=== PATIENT | female | born 1940 | race Caucasian/White ===

== ENCOUNTER → 2017-10-15 11:08 | Outpatient (CLI) | payer MEDICARE, OTHER, SELFPAY ==
--- NOTE | 2017-10-15 11:15 | RAD_ITS ---
STUDY: X-RAY - PELVIS AND LEFT HIP REASON FOR EXAM: Female, 77 years old. Hip pain. No history of trauma. TECHNIQUE: Radiological exam, hip, unilateral, with pelvis when performed; 2 or 3 views. COMPARISON: None. FINDINGS: There is a non-specific bowel gas pattern. A battery pack from a stimulator device is seen overlying the right iliac bone. The electrode is seen overlying the left sacral wing. There is narrowing with cortical sclerosis and osteophyte formation of the sacroiliac joint consistent with degenerative osteoarthritic changes. Normal bilateral superior and inferior pubic rami. There are degenerative changes of the pubic symphysis with articular narrowing and sclerosis. Normal bilateral ischial tuberosities. Normal visualized femoral head. Normal acetabulum. There is mild articular joint space narrowing of the hip. Status post right total hip replacement. IMPRESSION: Status post right total hip replacement. Degenerative changes of the left hip joint. Electronically Signed: Edward Jha MD at 15:54 EST Tel [phone], Service support , STUDY: X-RAY - PELVIS REASON FOR EXAM: Female, 77 years old. Hip pain. TECHNIQUE: One view of the pelvis was obtained. COMPARISON: None. FINDINGS: There is a non-specific bowel gas pattern. A stimulator device is seen overlying the right iliac bone. The electrode is overlying the left sacral wing. There is narrowing with cortical sclerosis and osteophyte formation of the sacroiliac joint consistent with degenerative osteoarthritic changes. Normal visualized bilateral superior and inferior pubic rami. Normal pubic symphysis. Normal ischial tuberosities. The patient is status post right total hip replacement. Normal visualized left femoral head. Normal left acetabulum. There is mild articular joint space narrowing of the left hip. 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 Electronically Signed: Edward Jha MD at 15:55 EST Tel [phone], Service support ,
--- NOTE | 2017-10-15 11:15 | RAD_ITS ---
STUDY: X-RAY - LEFT FEMUR REASON FOR STUDY: Female, 77 years old. Pain. No history of trauma. TECHNIQUE: Radiological exam, femur, minimum 2 views COMPARISON: None. FINDINGS: Normal visualized femur. Normal visualized soft tissue structure. There are atherosclerotic vascular calcifications. RAD/Femur Min 2 Views IMPRESSION: Normal x-ray examination of the femur. Electronically Signed: Edward Jha MD at 15:48 EST Tel [phone], Service support ,
== END ==
PROVIDERS: Family Provider Internal Medicine; PCP Internal Medicine; Visit Provider Internal Medicine
DX: M79.652 Pain in left thigh (principal); M25.552 Pain in left hip
CPT/HCPCS: 73502; 73552

== ENCOUNTER 2017-11-16 10:30 | Outpatient (RCR) | payer MEDICARE, OTHER, SELFPAY ==
--- NOTE | 2017-11-12 12:34 | HP.PTEVAL_ITS ---
Patient's Visit Information AGUSTIN GARCIA is a 77 year old F referred to Physical Therapy by Mirella PARKS with a diagnosis of L hip pain.. Date of Evaluation: 11/12/17 Physical Therapist: Chester Christine DPT, OC - Visit Plan Frequency: 3x /Week Duration: 4 Weeks Plan: 3x/week for 3-4 weeks... 1. Moist heat L quad/ITB. 2. STM/rollout to same. 3. Stretch ITB and quad on L. 4. PROM L hip and long leg traction. 5. Strength L hip NWB adn progress to HEP. - Subjective Subjective: L quad pain for 3 weeks. Injected which helped tremendously for a week. Got another injection adn sent for PT. Insidious onset for no apparent reason. Hurts with activity /walking. Sitting is comfortable. Used to walk 3 miles in an hour but has not been able to do that lately. Sleep is OK. Basic activites are OK, they just hurt and that is frustrating. Not employed. - Pain L quad Pain Intensity (Out of 10): 0 Pain Intensity Range: 0, 6 - Objective Antalgic L gait avoiding L hip extension at end stance. but I with gait and transfers. L quad tender to touch in ITB, GT and lateral andterior quad max tender. + jeffry test L, tight ITB L, hurts to stretch quad L. strength is 4-/ 5 B knees and ankles without pain, L quad mild tenderness with testing. Hip strength is 4- on R and 4- on L but painful with abduction and flexion. L hip ROM simliar to that of R, 45 ext rotation and 10 IR, pain with IR and + L hip scour. - Goals Goal 1:: Walk without antalgia and steps with L. Goal Time Frame: 4-6 Weeks Goal 2:: Pt feel 75% better and pain no greater than 1/10 Goal Time Frame: 4-6 Weeks Goal 3:: I approp HEp to minimize future problems. Goal Time Frame: 4-6 Weeks - Rehabilitation Potential Physical Therapy Diagnosis: L hip pain OA vs soft tissue quad/ITB Rehabilitation Potential: Fair - Anticipated Interventions Patient/Client Instruction: Educate patient on: Condition, Plan of Care For the Purpose of:: To decrease pain, To increase ROM, To improve nutrient delivery to tissue, To improve ability of physical actions for home/community/ work/leisure Therapeutic Exercise to Include: Strength training, Flexibilty training, Passive ROM, Active ROM For the Purpose of:: To decrease pain, To increase ROM Manual Therapy Techniques to Include: Mobilization, Soft tissue mobilization For the Purpose of:: To decrease pain, To increase ROM, To improve nutrient delivery to tissue Thermo therapy (hot pack): Yes For the Purpose of:: To improve nutrient delivery to tissue Thank you for the opportunity to evaluate your patient. For Medicare and Medicare HMO plans, please review the plan of care and approve it. It will need to be FAXED BACK to us at [phone] for Medicare purposes. Please let me know if there are questions or concerns regarding this plan of care. Physician Signature: Date:
--- NOTE | 2017-11-16 10:40 | HP.PTDCSUM ---
HP - PT D/C Summary It has been my pleasure to treat AGUSTIN GARCIA under orders from DR.KFEARO Chuy for the diagnosis of L hip pain. for a total of 2 visit(s). Discharge Date: 11/16/17 Please see the following information for a summary of their discharge status. - Subjective Subjective: I am back to normal. No pain over weekend. Done stretches each day and feels good. Activity is normal. Shovelled snow and no pain. Ready to be done with PT. Started Soring cleaning. - Pain L quad Pain Intensity (Out of 10): 0 - Overall Improvement % Improvement: 100 - Objective Objective/Function: Steps reciprocal without hesitation. Gait without antalgia today. Full aROM and symmetrical B hips and knees, no tenderness in L quad or ITB today. - Goals Goal 1:: Walk without antalgia and steps with L. Goal Progress: Goal Met Goal 2:: Pt feel 75% better and pain no greater than 1/10 Goal Progress: Goal Met Goal 3:: I approp HEp to minimize future problems. Goal Progress: Goal Met - Plan Plan: D/C, pt request adn appropriate. - D/C Information Discharge Comments: Pt doing well and no longer in need of PT. Will continue stretch and contact doctor if pain returns. If there are questions or concerns regarding this patient's physical therapy, please feel free to call me at [phone]. Thank you for the referral of this patient. Sincerely, Chester Christine, DPT, OC
== END 2017-11-16 19:00 | disposition home or self-care (01) ==
LOC: PT 10:30
PROVIDERS: Family Provider Internal Medicine; PCP Internal Medicine; Visit Provider Internal Medicine
DX: M25.552 Pain in left hip (principal); M70.72 Other bursitis of hip, left hip; M76.32 Iliotibial band syndrome, left leg
CPT/HCPCS: 97110; 97162; 97530

== ENCOUNTER → 2019-03-15 | Outpatient (CLI) | payer MEDICARE, OTHER, SELFPAY ==
--- NOTE | 2019-03-15 12:44 | VDLE_ITS ---
Reason For Study: pain RIGHT LEFT CFV is compressible, spontaneous, phasic, GSV is normal. competent and demonstrates normal CFV is compressible, spontaneous, phasic, augmentation. competent, and demonstrates normal Procedure augmentation. Exam performed in department. FV is compressible, spontaneous, phasic, The exam was diagnostic. competent and demonstrates normal A preliminary report was called and/or faxed augmentation. to Dr. Mccracken. POP V is compressible, spontaneous, phasic, competent and demonstrates normal augmentation. T/P Trunk is compressible. PTV is compressible. LT PerV is compressible. Interpretation Summary Deep veins of the left lower extremity are patent and compressible segmentally. There is no evidence of left lower extremity deep vein thrombosis. Valvular competence appears intact within the proximal deep venous system on the left . The left greater saphenous vein appears patent and compressible segmentally. Ordering Physician: Mirella Mccracken Performed By: Dilshad Russo RVT
== END | disposition home or self-care (01) ==
LOC: CVS 12:37
PROVIDERS: Family Provider Internal Medicine; PCP Internal Medicine; Referring Provider Internal Medicine; Visit Provider Internal Medicine
DX: M79.605 Pain in left leg (principal)
CPT/HCPCS: 93971

== ENCOUNTER → 2019-03-18 | Outpatient (CLI) | payer MEDICARE, OTHER, SELFPAY ==
--- NOTE | 2019-03-18 15:26 | US_ITS ---
STUDY: ULTRASOUND OF THE FEMALE PELVIS - COMPLETE REASON FOR EXAM: Female, 78 years old. Hysterectomy TECHNIQUE: Transabdominal ultrasound images were obtained of the pelvis TECHNICAL QUALITY: Adequate. COMPARISON: None. FINDINGS: The uterus has been removed. The right ovary has been removed. The left ovary has been removed. There is no fluid in the cul-de-sac. US/Pelvic (Non ) IMPRESSION: Status post hysterectomy and bilateral oophorectomy. No pelvic pathology identified. Electronically Signed: Avi Fisher, at 16:41 EDT Tel , Service support ,
== END | disposition home or self-care (01) ==
LOC: US 15:24
PROVIDERS: Family Provider Internal Medicine; PCP Internal Medicine; Referring Provider Internal Medicine; Visit Provider Internal Medicine
DX: M79.89 Other specified soft tissue disorders (principal)
CPT/HCPCS: 76856

== ENCOUNTER → 2019-05-05 | Outpatient (CLI) | payer MEDICARE, SELFPAY ==
[2019-05-05 12:48] LABS: Anion Gap 2 (5-15); BUN 15 mg/dL (7-18); Calcium,Total 9.9 mg/dL (8.5-10.1); Chloride 108 mmol/L (98-107); Creatinine, Serum 0.83 mg/dL (0.55-1.02); EST Glomerular Filtration Rate 70 mL/min (>60); Est Glom Filt Rate - Afr Amer 85 mL/min (>60); Glucose 93 mg/dL (74-106); Potassium 4.9 mmol/L (3.5-5.1); Sodium Level 143 mmol/L (136-145)
--- NOTE | 2019-05-05 14:16 | CT_ITS ---
STUDY: CT ABDOMEN AND PELVIS WITH CONTRAST REASON FOR EXAM: Female, 79 years old. Left-sided pain with lymphedema RADIATION DOSAGE (If Supplied By Facility): CTDIvol = ( 17.83 ) mGy, DLP = ( 2077.66 ) mGycm TECHNIQUE: Transaxial images were obtained from the dome of the diaphragm to the symphysis pubis with oral contrast. 100 IV/Oral Isovue 300 was administered. Sagittal and coronal images were reconstructed. Individualized dose optimization techniques were used for this CT. COMPARISON: None. FINDINGS: The visualized lung bases are unremarkable. Calcified mitral annulus. Median sternotomy wires. Small hiatal hernia. Subcentimeter right hepatic lobe hypodensity may be a small cyst. There are surgical clips in the gallbladder fossa consistent with a prior cholecystectomy. Normal spleen. Normal pancreas. Normal bilateral adrenal glands. Moderate left and mild right hydroureteronephrosis without evidence of underlying obstructing stone. Normal visualized stomach. Normal small intestine. There are multiple colonic diverticula consistent with diverticulosis. There is non-visualization of the appendix. Normal abdominal aorta. Normal inferior vena cava. Normal retroperitoneum. Normal urinary bladder. Postoperative changes of the anterior abdominal wall. Right hip arthroplasty. Sacral stimulator. CT/Abdomen/Pelvis WITH Contrast IMPRESSION: Moderate left and mild right hydroureteronephrosis without evidence of underlying obstructing stone. No evidence of acute intestinal pathology. Electronically Signed: Zoran Reinoso MD at 17:05 EDT Tel , Service support ,
== END | disposition home or self-care (01) ==
PROVIDERS: Family Provider Internal Medicine; PCP Internal Medicine; Referring Provider Internal Medicine; Visit Provider Internal Medicine
DX: I89.0 Lymphedema, not elsewhere classified (principal); Z51.81 Encounter for therapeutic drug level monitoring
CPT/HCPCS: 74177; 80048; Q9967

== ENCOUNTER 2019-05-27 18:10 | Observation (INO) | payer MEDICARE, SELFPAY ==
[2019-05-27] VITALS (20 sets, daily range): BP systolic 122–194; BP diastolic 65–155; PULSE 66–84; RESP 16–18; TEMP 36.3–36.6; O2SAT 92–100; BMI 30.6
[2019-05-27] MEDS: Lactated Ringers 1,000 ML 75 ML IV ×2 (14:36→16:57)
[2019-05-27] MEDS: Cefazolin 2 GM in 0.9% Normal Saline 100 ML IV (15:18)
--- NOTE | 2019-05-27 15:30 | RAD_ITS ---
STUDY: X-RAY - PELVIS REASON FOR EXAM: Female, 79 years old. TECHNIQUE: One view of the pelvis was obtained. COMPARISON: None. FINDINGS: This single intraoperative view demonstrates a stimulator electrode projecting over the right pelvis. RAD/Pelvis 1 or 2 Views IMPRESSION: Single intraoperative view demonstrates a stimulator electrode projecting over the right pelvis. Electronically Signed: Antoni Gaviria MD at 16:34 EDT , Service support ,
--- NOTE | 2019-05-27 16:14 | DCINST_ITS ---
Discharge Diet: Light diet - advance as tolerated Discharge Activity: Return to Normal Activity Call your doctor if your incision/area has: Continuous Slow Oozing, Sudden Increased Bleeding, Increased Pain/ Swelling, Increased Redness, Foul Smelling Discharge Call your doctor if you observe: Fever of 101 or Higher Suture Line Care: Avoid Pulling/Pushing, Avoid Pinching/Bending Allergies/Adverse Reactions: Allergies No Known Allergies Allergy (Verified 05/27/19 14:15) Medications to take at Discharge Aspirin E.C. [Ecotrin] 81 mg PO DAILY@0800 07/25/14 Cholecalciferol (VIT D3) [Vitamin D3] 1,000 unit PO DAILY 07/25/14 rosuvastatin 20 mg tablet 10 mg PO QDAY 11/23/17 Melatonin/Pyridoxine HCl (B6) [Melatonin 3 mg Tablet] 1 ea PO PRN PRN 05/13/19 Vit C/E/Zn/Coppr/Lutein/Zeaxan [Preservision Areds 2 Softgel] 1 ea PO DAILY 05/13/19 Primary Care Physician: Mirella Mccracken DO [Primary Care Provider] - Test Results: Test results from this visit will be discussed in further detail at your follow- up appointment, if applicable. Please Follow Up With: Uriel Francois MD When: in 2 weeks, please call to make an appointment.
--- NOTE | 2019-05-27 16:15 | OP.PCM_ITS ---
Report of Operation Date of Procedure: 05/27/19 Pre-Operative Diagnosis: Left hydronephrosis seen on CT scan, InterStim device nonfunctional due to battery life, overactive bladder urge incontinence. Post-Operative Diagnosis: The same Surgery/Procedure Performed:: 1., Cystoscopy, left retrograde pyelogram, interpretation fluoroscopic images. #2. InterStim stage II change of generator and battery. Description of Surgical Findings:: 79-year-old female who had a recent CAT scan to demonstrate some mild left hydronephrosis we will do a retrograde pyelogram to evaluate this she did have a prior operative procedure on her kidney she cannot remember what this could just be result from this procedure. She also has overactive bladder and urge incontinence which now is worsened and she did have a InterStim device placed 9 years ago and working to replace the generator battery. 79-year-old female taken back to the operating room at the smooth induction of MAC local she was placed in dorsolithotomy position went into the bladder with a 21 [place] rigid cystourethroscope cannulated the left ureteral orifice with a Glidewire and a Pollack catheter performed a retrograde pyelogram and the pyelograms consistent with normal anatomy normal smooth contrast with some mild dilation of the renal pelvis but no obstruction no tumors or stones seen in the retrograde pyelogram. Patient was then repositioned facedown on the table we found the old incision site for the InterStim in the old site for the generator, we infiltrated the skin with lidocaine the area was prepped and draped in usual sterile fashion made an incision above the generator dissected sharply down to the generator making sure not to injure the lead found the generator and the pseudo-sac around the opened it up pulled out the generator use the bolts to undo the screw and then took the generator off the old lead we then tested the lead 012 and 3 leads were tested we had toe and abdiel on all leads checked. We then placed a new generator onto the lead advanced all the way and tighten out with a bolt and then we checked for impedances impedances were low we then placed the generator back into the pocket closed the pocket in 2 layers with sutures dressings and b andages were placed patient taken back to PACU in good condition and we completed change of stage II generator and InterStim implant. Type of Anesthesia:: Local MAC - Admit VTE Documentation VTE Present on Admission: No VTE Mechan Device Prophylaxis: SCD's
--- NOTE | 2019-05-27 16:40 | RAD_ITS ---
STUDY: X-RAY - RIGHT SHOULDER REASON FOR EXAM: Female, 79 years old. Right shoulder pain TECHNIQUE: 2 view(s) of the shoulder. COMPARISON: None. FINDINGS: Normal glenohumeral articulation. Normal acromioclavicular joint. Normal acromion. Normal humeral head and visualized proximal humerus. The soft tissue structures are unremarkable. Normal visualized pulmonary apex. RAD/Shoulder min 2 Views IMPRESSION: Normal x-ray examination of the shoulder. Electronically Signed: Antoni Gaviria MD at 17:22 EDT , Service support ,
--- NOTE | 2019-05-27 16:43 | EKG12_ITS ---
Test Reason : CP Blood Pressure : / mmHG Vent. Rate : 067 BPM Atrial Rate : 067 BPM P-R Int : 172 ms QRS Dur : 076 ms QT Int : 434 ms P-R-T Axes : 063 031 057 degrees QTc Int : 458 ms Normal sinus rhythm Normal ECG Confirmed by BRENT GE, ANJEL ([id number]), makeup editor MANNY VERDE ([id number]) on 06/01/2019 2:41:48 PM Referred By: Uriel Francois Confirmed By:ANJEL KENNEDY MD
--- NOTE | 2019-05-27 16:46 | RAD_ITS ---
STUDY: X-RAY CHEST REASON FOR EXAM: Female, 79 years old. Right shoulder and rib pain status post surgery TECHNIQUE: Single AP portable view of the chest. COMPARISON: Prior study of 03/26/2017 FINDINGS: There are wispy fibrotic and/or atelectatic changes of the lung bases. There is no demonstrated pleural abnormality. The heart size is within normal limits. Status post sternotomy changes are noted. Normal mediastinum and karthik. Normal visualized pulmonary arteries. There are calcified plaques of the aortic arch. Normal visualized thoracic spine. Normal visualized ribs, clavicles, and shoulders. There is no demonstrated abnormality of the visualized soft tissue structures of the upper abdomen. RAD/Chest 1 View (Portable) IMPRESSION: Wispy fibrotic and/or atelectatic changes of the lung bases, new in the interval. Calcified plaques of the aortic arch. Status post sternotomy. Electronically Signed: Antoni Gaviria MD at 17:24 EDT , Service support ,
[2019-05-27] MEDS: Ondansetron 4 MG/2 ML Vial IV (21:31)
[2019-05-27] MEDS: 0.9% NaCl Peripheral Flush Adult/Peds IV (21:33)
[2019-05-27] MEDS: Atorvastatin Calcium 20 MG Tablet PO (23:15)
[2019-05-28 03:03] VITALS: BP 150/68; PULSE 69; RESP 18; TEMP 36.6; O2SAT 99
[2019-05-28] MEDS: Lactated Ringers 1,000 ML 30 ML IV (06:49)
[2019-05-28 07:48] VITALS: BP 159/61; PULSE 70; RESP 18; TEMP 37; O2SAT 98
[2019-05-28] MEDS: Aspirin E.C. 81 MG Tablet PO (07:52)
[2019-05-28] MEDS: Multivitamins,Ther W-Minerals Tablet 1 TABLET PO (07:55)
--- NOTE | 2019-05-28 09:48 | PCM.PN.BLA ---
Progress Note Doing well this morning no more nausea or vomiting or pain or discomfort, we were able to turn on the InterStim device. Discharge later home today follow-up in the office few weeks.
== END 2019-05-28 10:06 | disposition home or self-care (01) ==
LOC: MS3 18:16
PROVIDERS: Admitting Provider Urology; Family Provider Internal Medicine; PCP Internal Medicine; Referring Provider Urology; Visit Provider Urology
PROC: (CPT 52005; principal; 2019-05-27 15:10)
PROC: (CPT 52005; 2019-05-27 15:10)
DX: Z45.42 Encounter for adjustment and management of neurostimulator (principal); N32.81 Overactive bladder; N13.1 Hydronephrosis with ureteral stricture, not elsewhere classified; E78.00 Pure hypercholesterolemia, unspecified; I25.2 Old myocardial infarction; N39.46 Mixed incontinence; I48.91 Unspecified atrial fibrillation; Z95.1 Presence of aortocoronary bypass graft; G47.30 Sleep apnea, unspecified; Z79.899 Other long term (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 therapy; Z79.82 Long term (current) use of aspirin; I25.9 Chronic ischemic heart disease, unspecified; M19.90 Unspecified osteoarthritis, unspecified site
CPT/HCPCS: 52005; 64590; 71045; 72170; 73030; 76000; 93005; 96374; 99218; J7120; A4216; C1767; G0378; G0379; J2405

== ENCOUNTER → 2019-07-18 05:00 | Outpatient (REF) | payer OTHER, SELFPAY ==
[2019-05-27 18:37] VITALS: BMI 30.6
[2019-07-18 08:07] LABS: Hematocrit 40.3 % (37-47); Hemoglobin 12.7 g/dL (12.0-15.0); Mean Corp Hgb Conc 31.5 g/dL (32-36); Mean Corpuscular Hgb 29.8 pg (27.0-32.0); Mean Corpuscular Volume 94.6 fL (81-99); Mean Platelet Vol. 10.3 fl (6.2-12.0); Platelet Count 187 K/mm3 (150-450); RBC Distribution Width CV 13.7 % (11.6-14.6); RBC Distribution Width SD 47.7 fl (35.1-43.9); Red Blood Count 4.26 M/mm3 (4.2-5.4); White Blood Count 4.7 K/mm3 (4.4-11.0)
[2019-07-18 08:24] LABS: Anion Gap 6 (5-15); BUN 12 mg/dL (7-18); BUN/Creat Ratio 18.7 RATIO (10-20); Calcium,Total 9.2 mg/dL (8.5-10.1); Chloride 106 mmol/L (98-107); Creatinine, Serum 0.64 mg/dL (0.55-1.02); EST Glomerular Filtration Rate 95 mL/min (>60); Est Glom Filt Rate - Afr Amer 114 mL/min (>60); Glucose 103 mg/dL (74-106); Potassium 4.5 mmol/L (3.5-5.1); Sodium Level 141 mmol/L (136-145)
== END ==
LOC: OLS.WHLCAR 05:00
PROVIDERS: Visit Provider Family Medicine
DX: I10 Essential (primary) hypertension (principal); S82.851D Displaced trimalleolar fracture of right lower leg, subsequent encounter for closed fracture with routine healing; S52.501D Unspecified fracture of the lower end of right radius, subsequent encounter for closed fracture with routine healing
CPT/HCPCS: 36415; 80048; 85027

== ENCOUNTER → 2019-08-15 05:00 | Outpatient (REF) | payer OTHER, SELFPAY ==
[2019-05-27 18:37] VITALS: BMI 30.6
[2019-08-15 08:12] LABS: Hematocrit 37.5 % (37-47); Hemoglobin 12.3 g/dL (12.0-15.0); Mean Corp Hgb Conc 32.8 g/dL (32-36); Mean Corpuscular Hgb 29.9 pg (27.0-32.0); Mean Platelet Vol. 10.3 fl (6.2-12.0); Platelet Count 173 K/mm3 (150-450); RBC Distribution Width CV 13.2 % (11.6-14.6); RBC Distribution Width SD 44.4 fl (35.1-43.9); Red Blood Count 4.12 M/mm3 (4.2-5.4); White Blood Count 4.7 K/mm3 (4.4-11.0)
[2019-08-15 08:29] LABS: Anion Gap 7 (5-15); BUN 8 mg/dL (7-18); BUN/Creat Ratio 11.4 RATIO (10-20); Calcium,Total 8.9 mg/dL (8.5-10.1); Chloride 110 mmol/L (98-107); EST Glomerular Filtration Rate 85 mL/min (>60); Est Glom Filt Rate - Afr Amer 103 mL/min (>60); Glucose 80 mg/dL (74-106); Potassium 3.9 mmol/L (3.5-5.1); Sodium Level 143 mmol/L (136-145)
== END ==
LOC: OLS.WHLCAR 05:00
PROVIDERS: Visit Provider Family Medicine
DX: I10 Essential (primary) hypertension (principal); S82.851D Displaced trimalleolar fracture of right lower leg, subsequent encounter for closed fracture with routine healing; S52.501D Unspecified fracture of the lower end of right radius, subsequent encounter for closed fracture with routine healing
CPT/HCPCS: 36415; 80048; 85027

== ENCOUNTER → 2019-11-03 14:15 | Outpatient (CLI) | payer MEDICARE, MEDICAID, SELFPAY ==
[2019-05-27 18:37] VITALS: BMI 30.6
--- NOTE | 2019-11-03 14:21 | CT_ITS ---
STUDY: CT RIGHT WRIST REASON FOR EXAM: Right wrist pain status post surgical repair. TECHNIQUE: Transaxial CT imaging of the wrist was performed. Sagittal and coronal images were reconstructed. Individualized dose optimization techniques were used for this CT. COMPARISON: None. FINDINGS: There is an intact orthopedic plate and screws transfixing a distal radial fracture with osseous bridging and mild foreshortening (coronal reconstructions 24-27; sagittal reconstructions 31-40). There is a chronic avulsion fracture of the ulnar styloid process without osseous union (coronal reconstructions 23, 24). There is joint space narrowing of the radioscaphoid articulation (coronal reconstructions 24, 25). The carpal bones appear intact. There is joint space narrowing of the first carpometacarpal articulation (coronal reconstructions 21, 22). Normal metacarpals. The soft tissue structures are unremarkable. CT/Extremity Upper without Contra IMPRESSION: Healed distal radial fracture with orthopedic hardware. Arthrosis of the radioscaphoid articulation. Arthrosis of the first carpometacarpal articulation. Chronic avulsion fracture of the ulnar styloid process without osseous union. Electronically Signed: Eugene Rodriguez MD at 15:06 EST Tel , Service support ,
== END ==
PROVIDERS: PCP Internal Medicine
DX: S52.571A Other intraarticular fracture of lower end of right radius, initial encounter for closed fracture (principal); X58.XXXA Exposure to other specified factors, initial encounter; Y93.9 Activity, unspecified; Y92.9 Unspecified place or not applicable; Y99.9 Unspecified external cause status
CPT/HCPCS: 73200

== ENCOUNTER → 2019-11-14 05:00 | Outpatient (REF) | payer MEDICARE, MEDICAID, SELFPAY ==
[2019-05-27 18:37] VITALS: BMI 30.6
[2019-11-14 08:29] LABS: Absolute Neutrophil Count 2.5 X10^3/uL (2.0-7.7); Basophil# 0.03 X10^3/uL; Basophil% 0.7 % (0-1); Eosinophil# 0.14 X10^3/uL; Eosinophils% 3.1 % (0-5); Hematocrit 38.3 % (37-47); Hemoglobin 12.8 g/dL (12.0-15.0); Lymphocyte % 30.6 % (19-41); Mean Corp Hgb Conc 33.4 g/dL (32-36); Mean Corpuscular Hgb 30.4 pg (27.0-32.0); Mean Platelet Vol. 10.4 fl (6.2-12.0); Monocyte# 0.49 X10^3/uL; Monocyte% 10.7 % (0-10); NRBC Flagged by Analyzer 0 % (0-5); Neutrophil # 2.51 X10^3/uL (2.7-7.7); Neutrophil % 54.7 % (47-70); Platelet Count 174 K/mm3 (150-450); Red Blood Count 4.21 M/mm3 (4.2-5.4); White Blood Count 4.6 K/mm3 (4.4-11.0)
[2019-11-14 08:38] LABS: Anion Gap 7 (5-15); BUN 14 mg/dL (7-18); BUN/Creat Ratio 21.2 RATIO (10-20); Calcium,Total 9.1 mg/dL (8.5-10.1); Chloride 109 mmol/L (98-107); Creatinine, Serum 0.66 mg/dL (0.55-1.02); EST Glomerular Filtration Rate 92 mL/min (>60); Est Glom Filt Rate - Afr Amer 111 mL/min (>60); Glucose 78 mg/dL (74-106); Potassium 3.8 mmol/L (3.5-5.1); Sodium Level 142 mmol/L (136-145)
== END ==
LOC: OLS.WHLCAR 05:00
PROVIDERS: PCP Internal Medicine; Visit Provider Family Medicine
DX: I25.10 Atherosclerotic heart disease of native coronary artery without angina pectoris (principal); S82.851D Displaced trimalleolar fracture of right lower leg, subsequent encounter for closed fracture with routine healing; S52.501D Unspecified fracture of the lower end of right radius, subsequent encounter for closed fracture with routine healing
CPT/HCPCS: 36415; 80048; 85025

== ENCOUNTER → 2019-11-23 05:00 | Outpatient (REF) | payer MEDICARE, MEDICAID, SELFPAY ==
[2019-05-27 18:37] VITALS: BMI 30.6
[2019-11-23 07:46] LABS: Cholesterol 105 mg/dL (200); High Density Lipoprotein 53 mg/dL; Triglycerides 93 mg/dL; Very Low Density Lipoprotein 19 mg/dL (5-40)
== END ==
LOC: OLS.WHLCAR 05:00
PROVIDERS: PCP Internal Medicine; Visit Provider Family Medicine
DX: I25.10 Atherosclerotic heart disease of native coronary artery without angina pectoris (principal); S82.851D Displaced trimalleolar fracture of right lower leg, subsequent encounter for closed fracture with routine healing; S52.501D Unspecified fracture of the lower end of right radius, subsequent encounter for closed fracture with routine healing
CPT/HCPCS: 36415; 80061

== ENCOUNTER → 2020-02-13 05:00 | Outpatient (REF) | payer MEDICARE, MEDICAID, SELFPAY ==
[2019-05-27 18:37] VITALS: BMI 30.6
[2020-02-13 08:34] LABS: Basophil# 0.03 X10^3/uL; Basophil% 0.6 % (0-1); Eosinophil# 0.16 X10^3/uL; Eosinophils% 3.1 % (0-5); Hemoglobin 13.4 g/dL (12.0-15.0); Lymphocyte % 29.4 % (19-41); Mean Corp Hgb Conc 31.9 g/dL (32-36); Mean Corpuscular Hgb 30.3 pg (27.0-32.0); Mean Platelet Vol. 10.4 fl (6.2-12.0); Monocyte# 0.42 X10^3/uL; Monocyte% 8.2 % (0-10); NRBC Flagged by Analyzer 0 % (0-5); Neutrophil % 58.7 % (47-70); Platelet Count 201 K/mm3 (150-450); RBC Distribution Width CV 12.6 % (11.6-14.6); RBC Distribution Width SD 43.9 fl (35.1-43.9); Red Blood Count 4.42 M/mm3 (4.2-5.4); White Blood Count 5.1 K/mm3 (4.4-11.0)
[2020-02-13 08:54] LABS: Anion Gap 7 (5-15); BUN 8 mg/dL (7-18); BUN/Creat Ratio 10.7 RATIO (10-20); Calcium,Total 9.5 mg/dL (8.5-10.1); Chloride 108 mmol/L (98-107); Creatinine, Serum 0.75 mg/dL (0.55-1.02); EST Glomerular Filtration Rate 79 mL/min (>60); Est Glom Filt Rate - Afr Amer 95 mL/min (>60); Glucose 96 mg/dL (74-106); Potassium 4.1 mmol/L (3.5-5.1); Sodium Level 140 mmol/L (136-145)
== END ==
LOC: OLS.WHLCAR 05:00
PROVIDERS: PCP Internal Medicine; Visit Provider Family Medicine
DX: I25.10 Atherosclerotic heart disease of native coronary artery without angina pectoris (principal); S82.851D Displaced trimalleolar fracture of right lower leg, subsequent encounter for closed fracture with routine healing; S52.501D Unspecified fracture of the lower end of right radius, subsequent encounter for closed fracture with routine healing
CPT/HCPCS: 36415; 80048; 85025

== ENCOUNTER → 2020-05-22 04:00 | Outpatient (REF) | payer MEDICARE, MEDICAID, SELFPAY ==
[2019-05-27 18:37] VITALS: BMI 30.6
[2020-05-22 08:35] LABS: Absolute Lymphocyte Count 1.69 X10^3/uL (0.83-4.51); Absolute Neutrophil Count 2.7 X10^3/uL (2.0-7.7); Basophil# 0.03 X10^3/uL; Basophil% 0.6 % (0-1); Hematocrit 42.5 % (37-47); Hemoglobin 13.6 g/dL (12.0-15.0); Lymphocyte # 1.69 X10^3/ul (4.0); Lymphocyte % 33.7 % (19-41); Mean Corpuscular Hgb 31.3 pg (27.0-32.0); Mean Corpuscular Volume 97.7 fL (81-99); Mean Platelet Vol. 10.3 fl (6.2-12.0); Monocyte# 0.48 X10^3/uL; Monocyte% 9.6 % (0-10); NRBC Flagged by Analyzer 0 % (0-5); Neutrophil # 2.71 X10^3/uL (2.7-7.7); Neutrophil % 53.9 % (47-70); Platelet Count 188 K/mm3 (150-450); RBC Distribution Width CV 12.5 % (11.6-14.6); RBC Distribution Width SD 44.8 fl (35.1-43.9); Red Blood Count 4.35 M/mm3 (4.2-5.4)
[2020-05-22 09:30] LABS: Anion Gap 5 (5-15); BUN 12 mg/dL (7-18); Calcium,Total 9.3 mg/dL (8.5-10.1); Chloride 109 mmol/L (98-107); EST Glomerular Filtration Rate 73 mL/min (>60); Est Glom Filt Rate - Afr Amer 89 mL/min (>60); Glucose 90 mg/dL (74-106); Potassium 4.1 mmol/L (3.5-5.1); Sodium Level 141 mmol/L (136-145)
== END ==
LOC: OLS.WHLCAR 04:00
PROVIDERS: PCP Internal Medicine; Referring Provider Family Medicine; Visit Provider Family Medicine
DX: G30.9 Alzheimer's disease, unspecified (principal); F02.80 Dementia in other diseases classified elsewhere, unspecified severity, without behavioral disturbance, psychotic disturbance, mood disturbance, and anxiety; I10 Essential (primary) hypertension; I25.10 Atherosclerotic heart disease of native coronary artery without angina pectoris
CPT/HCPCS: 36415; 80048; 85025

== ENCOUNTER → 2020-11-12 05:00 | Outpatient (REF) | payer MEDICARE, MEDICAID, SELFPAY ==
[2019-05-27 18:37] VITALS: BMI 30.6
[2020-11-12 08:45] LABS: Absolute Neutrophil Count 2.6 X10^3/uL (2.0-7.7); Basophil# 0.03 X10^3/uL; Basophil% 0.6 % (0-1); Eosinophil# 0.07 X10^3/uL; Eosinophils% 1.5 % (0-5); Hematocrit 37.7 % (37-47); Hemoglobin 11.9 g/dL (12.0-15.0); Lymphocyte % 31.6 % (19-41); Mean Corp Hgb Conc 31.6 g/dL (32-36); Mean Corpuscular Hgb 30.4 pg (27.0-32.0); Mean Corpuscular Volume 96.4 fL (81-99); Monocyte# 0.54 X10^3/uL; Monocyte% 11.4 % (0-10); NRBC Flagged by Analyzer 0 % (0-5); Neutrophil % 54.7 % (47-70); Platelet Count 174 K/mm3 (150-450); RBC Distribution Width CV 12.6 % (11.6-14.6); RBC Distribution Width SD 45.1 fl (35.1-43.9); Red Blood Count 3.91 M/mm3 (4.2-5.4); White Blood Count 4.8 K/mm3 (4.4-11.0)
[2020-11-12 08:59] LABS: Anion Gap 3 (5-15); BUN 14 mg/dL (7-18); BUN/Creat Ratio 19.6 RATIO (10-20); Chloride 108 mmol/L (98-107); Creatinine, Serum 0.71 mg/dL (0.55-1.02); EST Glomerular Filtration Rate 84 mL/min (>60); Est Glom Filt Rate - Afr Amer 101 mL/min (>60); Glucose 85 mg/dL (74-106); Potassium 4.2 mmol/L (3.5-5.1); Sodium Level 140 mmol/L (136-145)
== END ==
LOC: OLS.WHLEAS 05:00
PROVIDERS: PCP Internal Medicine; Visit Provider Family Medicine
DX: I25.10 Atherosclerotic heart disease of native coronary artery without angina pectoris (principal); G30.9 Alzheimer's disease, unspecified; F02.80 Dementia in other diseases classified elsewhere, unspecified severity, without behavioral disturbance, psychotic disturbance, mood disturbance, and anxiety; I10 Essential (primary) hypertension
CPT/HCPCS: 36415; 80048; 85025

== ENCOUNTER → 2021-01-14 04:00 | Outpatient (REF) | payer MEDICARE, MEDICAID, SELFPAY ==
[2019-05-27 18:37] VITALS: BMI 30.6
[2021-01-14 07:48] LABS: Cholesterol 120 mg/dL (200); High Density Lipoprotein 60 mg/dL; Triglycerides 72 mg/dL; Very Low Density Lipoprotein 14 mg/dL (5-40)
== END ==
LOC: OLS.WHLEAS 04:00
PROVIDERS: PCP Internal Medicine; Referring Provider Family Medicine; Visit Provider Family Medicine
DX: I25.10 Atherosclerotic heart disease of native coronary artery without angina pectoris (principal); G30.9 Alzheimer's disease, unspecified; F02.80 Dementia in other diseases classified elsewhere, unspecified severity, without behavioral disturbance, psychotic disturbance, mood disturbance, and anxiety; I10 Essential (primary) hypertension
CPT/HCPCS: 36415; 80061

== ENCOUNTER → 2021-02-18 05:00 | Outpatient (REF) | payer MEDICARE, MEDICAID, SELFPAY ==
[2019-05-27 18:37] VITALS: BMI 30.6
[2021-02-18 07:10] LABS: Absolute Lymphocyte Count 1.17 X10^3/uL (0.83-4.51); Absolute Neutrophil Count 2.3 X10^3/uL (2.0-7.7); Basophil# 0.02 X10^3/uL; Basophil% 0.5 % (0-1); Eosinophil# 0.12 X10^3/uL; Eosinophils% 2.9 % (0-5); Hematocrit 38.7 % (37-47); Hemoglobin 12.6 g/dL (12.0-15.0); Lymphocyte # 1.17 X10^3/ul (0.83-4.51); Lymphocyte % 27.9 % (19-41); Mean Corp Hgb Conc 32.6 g/dL (32-36); Mean Corpuscular Hgb 30.8 pg (27.0-32.0); Mean Corpuscular Volume 94.6 fL (81-99); Mean Platelet Vol. 10.1 fl (6.2-12.0); Monocyte# 0.62 X10^3/uL; Monocyte% 14.8 % (0-10); NRBC Flagged by Analyzer 0 % (0-5); Neutrophil # 2.26 X10^3/uL (2.7-7.7); Neutrophil % 53.7 % (47-70); Platelet Count 174 K/mm3 (150-450); RBC Distribution Width CV 12.4 % (11.6-14.6); RBC Distribution Width SD 43.1 fl (35.1-43.9); Red Blood Count 4.09 M/mm3 (4.2-5.4); White Blood Count 4.2 K/mm3 (4.4-11.0)
[2021-02-18 07:22] LABS: Anion Gap 7 (5-15); BUN 15 mg/dL (7-18); BUN/Creat Ratio 19.6 RATIO (10-20); Chloride 105 mmol/L (98-107); Creatinine, Serum 0.76 mg/dL (0.55-1.02); EST Glomerular Filtration Rate 77 mL/min (>60); Est Glom Filt Rate - Afr Amer 93 mL/min (>60); Glucose 90 mg/dL (74-106); Potassium 4.2 mmol/L (3.5-5.1); Sodium Level 140 mmol/L (136-145)
== END ==
LOC: OLS.WHLEAS 05:00
PROVIDERS: PCP Internal Medicine; Visit Provider Family Medicine
DX: I25.10 Atherosclerotic heart disease of native coronary artery without angina pectoris (principal); G30.9 Alzheimer's disease, unspecified; F02.80 Dementia in other diseases classified elsewhere, unspecified severity, without behavioral disturbance, psychotic disturbance, mood disturbance, and anxiety; I10 Essential (primary) hypertension
CPT/HCPCS: 36415; 80048; 85025

== ENCOUNTER → 2021-05-21 05:00 | Outpatient (REF) | payer MEDICARE, MEDICAID, SELFPAY ==
[2021-05-21 11:20] LABS: Absolute Neutrophil Count 2.8 X10^3/uL (2.0-7.7); Basophil# 0.05 X10^3/uL; Basophil% 1.1 % (0-1); Eosinophil# 0.01 X10^3/uL; Eosinophils% 0.2 % (0-5); Hematocrit 38.8 % (37-47); Hemoglobin 12.7 g/dL (12.0-15.0); Lymphocyte % 27.5 % (19-41); Mean Corp Hgb Conc 32.7 g/dL (32-36); Mean Corpuscular Hgb 30.5 pg (27.0-32.0); Mean Corpuscular Volume 93.3 fL (81-99); Mean Platelet Vol. 10.1 fl (6.2-12.0); Monocyte# 0.52 X10^3/uL; NRBC Flagged by Analyzer 0 % (0-5); Neutrophil # 2.83 X10^3/uL (2.7-7.7); Platelet Count 179 K/mm3 (150-450); RBC Distribution Width SD 44.2 fl (35.1-43.9); Red Blood Count 4.16 M/mm3 (4.2-5.4); White Blood Count 4.7 K/mm3 (4.4-11.0)
[2021-05-21 11:25] LABS: Anion Gap 3 (5-15); BUN 15 mg/dL (7-18); Calcium,Total 8.8 mg/dL (8.5-10.1); Chloride 108 mmol/L (98-107); Creatinine, Serum 0.68 mg/dL (0.55-1.02); EST Glomerular Filtration Rate 88 mL/min (>60); Est Glom Filt Rate - Afr Amer 106 mL/min (>60); Glucose 96 mg/dL (74-106); Potassium 4.1 mmol/L (3.5-5.1); Sodium Level 139 mmol/L (136-145)
== END ==
LOC: OLS.WHLEAS 05:00
PROVIDERS: PCP Internal Medicine; Visit Provider Family Medicine
DX: I25.10 Atherosclerotic heart disease of native coronary artery without angina pectoris (principal); G30.9 Alzheimer's disease, unspecified; F02.80 Dementia in other diseases classified elsewhere, unspecified severity, without behavioral disturbance, psychotic disturbance, mood disturbance, and anxiety; I10 Essential (primary) hypertension
CPT/HCPCS: 36415; 80048; 85025

== ENCOUNTER → 2021-08-14 14:29 | Outpatient (CLI) | payer MEDICARE, MEDICAID, SELFPAY ==
--- NOTE | 2021-08-14 15:50 | NEURO ---
NCS and/or EMG Patient Report Ordering Doctor: Marilu Edwards NP DATE OF SERVICE: 08/14/21 Meka presents for electrodiagnostic testing of the right upper limb. She has pain in the left fifth digit with occasional numbness in the hand. Electrodiagnostic findings: Right median motor nerve demonstrates normal distal latency and, amplitude and conduction velocity. Right ulnar motor nerve demonstrates a greater than 20% drop in conduction across the elbow. Normal right median and ulnar F waves. Prolonged right median sensory latency at the wrist. Normal right ulnar and radial sensory responses. On needle EMG, all muscles tested in the right upper limb showed no evidence of denervation with normal motor unit action potentials. Electrodiagnostic impression: This is an abnormal study in the right upper limb. 1. Electrodiagnostic findings demonstrate right-sided ulnar neuropathy. This is consistent with a mild to moderate right cubital tunnel syndrome. 2. Electrodiagnostic findings demonstrate right-sided median mononeuropathy. This consistent with a mild right carpal tunnel syndrome
== END ==
PROVIDERS: PCP Internal Medicine; Referring Provider Nurse Practitioner Family; Visit Provider Nurse Practitioner Family
DX: M79.646 Pain in unspecified finger(s) (principal); G90.50 Complex regional pain syndrome I, unspecified; R20.0 Anesthesia of skin
CPT/HCPCS: 95886; 95910

== ENCOUNTER → 2021-08-20 05:00 | Outpatient (REF) | payer MEDICARE, MEDICAID, SELFPAY ==
[2021-08-20 09:11] LABS: Absolute Lymphocyte Count 1.48 X10^3/uL (0.83-4.51); Absolute Neutrophil Count 3.3 X10^3/uL (2.0-7.7); Basophil# 0.04 X10^3/uL; Basophil% 0.7 % (0-1); Eosinophil# 0.16 X10^3/uL; Eosinophils% 2.9 % (0-5); Hematocrit 41.5 % (37-47); Lymphocyte # 1.48 X10^3/ul (0.83-4.51); Lymphocyte % 26.9 % (19-41); Mean Corp Hgb Conc 33.7 g/dL (32-36); Mean Corpuscular Hgb 30.5 pg (27.0-32.0); Mean Corpuscular Volume 90.4 fL (81-99); Mean Platelet Vol. 10.2 fl (6.2-12.0); Monocyte# 0.57 X10^3/uL; Monocyte% 10.3 % (0-10); NRBC Flagged by Analyzer 0 % (0-5); Neutrophil # 3.25 X10^3/uL (2.7-7.7); Platelet Count 186 K/mm3 (150-450); RBC Distribution Width CV 12.8 % (11.6-14.6); RBC Distribution Width SD 42.3 fl (35.1-43.9); Red Blood Count 4.59 M/mm3 (4.2-5.4); White Blood Count 5.5 K/mm3 (4.4-11.0)
[2021-08-20 09:28] LABS: Anion Gap 3 (5-15); BUN 14 mg/dL (7-18); BUN/Creat Ratio 21.4 RATIO (10-20); Calcium,Total 9.4 mg/dL (8.5-10.1); Chloride 109 mmol/L (98-107); Creatinine, Serum 0.65 mg/dL (0.55-1.02); EST Glomerular Filtration Rate 92 mL/min (>60); Est Glom Filt Rate - Afr Amer 112 mL/min (>60); Glucose 91 mg/dL (74-106); Potassium 4.2 mmol/L (3.5-5.1); Sodium Level 141 mmol/L (136-145)
== END ==
LOC: OLS.WHLEAS 05:00
PROVIDERS: PCP Internal Medicine; Visit Provider Family Medicine
DX: I25.10 Atherosclerotic heart disease of native coronary artery without angina pectoris (principal); G30.9 Alzheimer's disease, unspecified; F02.80 Dementia in other diseases classified elsewhere, unspecified severity, without behavioral disturbance, psychotic disturbance, mood disturbance, and anxiety; I10 Essential (primary) hypertension
CPT/HCPCS: 36415; 80048; 85025

== ENCOUNTER → 2021-11-12 | Outpatient (REF) | payer MEDICARE, MEDICAID, SELFPAY ==
[2021-11-12 06:07] LABS: Absolute Lymphocyte Count 1.48 X10^3/uL (0.83-4.51); Absolute Neutrophil Count 3.5 X10^3/uL (2.0-7.7); Basophil# 0.03 X10^3/uL; Basophil% 0.5 % (0-1); Eosinophil# 0.08 X10^3/uL; Eosinophils% 1.4 % (0-5); Hematocrit 39.7 % (37-47); Hemoglobin 13.7 g/dL (12.0-15.0); Lymphocyte # 1.48 X10^3/ul (0.83-4.51); Mean Corp Hgb Conc 34.5 g/dL (32-36); Mean Corpuscular Hgb 30.9 pg (27.0-32.0); Mean Corpuscular Volume 89.4 fL (81-99); Mean Platelet Vol. 10.2 fl (6.2-12.0); Monocyte# 0.57 X10^3/uL; NRBC Flagged by Analyzer 0 % (0-5); Neutrophil # 3.51 X10^3/uL (2.7-7.7); Neutrophil % 61.7 % (47-70); Platelet Count 194 K/mm3 (150-450); RBC Distribution Width CV 12.8 % (11.6-14.6); RBC Distribution Width SD 41.8 fl (35.1-43.9); Red Blood Count 4.44 M/mm3 (4.2-5.4); White Blood Count 5.7 K/mm3 (4.4-11.0)
[2021-11-12 06:37] LABS: Anion Gap 2 (5-15); BUN 12 mg/dL (7-18); BUN/Creat Ratio 16.9 RATIO (10-20); Calcium,Total 9.5 mg/dL (8.5-10.1); Chloride 108 mmol/L (98-107); Creatinine, Serum 0.71 mg/dL (0.55-1.02); EST Glomerular Filtration Rate 84 mL/min (>60); Est Glom Filt Rate - Afr Amer 101 mL/min (>60); Glucose 105 mg/dL (74-106); Potassium 3.8 mmol/L (3.5-5.1); Sodium Level 139 mmol/L (136-145)
== END | disposition home or self-care (01) ==
LOC: OLS.WHLEAS 05:00
PROVIDERS: PCP Family Medicine; Visit Provider Family Medicine
DX: G30.9 Alzheimer's disease, unspecified (principal); F02.80 Dementia in other diseases classified elsewhere, unspecified severity, without behavioral disturbance, psychotic disturbance, mood disturbance, and anxiety; I10 Essential (primary) hypertension; I25.10 Atherosclerotic heart disease of native coronary artery without angina pectoris
CPT/HCPCS: 36415; 80048; 85025

== ENCOUNTER → 2022-01-13 | Outpatient (REF) | payer MEDICARE, MEDICAID, SELFPAY ==
[2022-01-13 10:30] LABS: Cholesterol 117 mg/dL (200); High Density Lipoprotein 44 mg/dL; Triglycerides 118 mg/dL; Very Low Density Lipoprotein 24 mg/dL (5-40)
== END | disposition home or self-care (01) ==
LOC: OLS.WHLEAS 05:40
PROVIDERS: PCP Family Medicine; Visit Provider Family Medicine
DX: I25.10 Atherosclerotic heart disease of native coronary artery without angina pectoris (principal); G30.9 Alzheimer's disease, unspecified; F02.80 Dementia in other diseases classified elsewhere, unspecified severity, without behavioral disturbance, psychotic disturbance, mood disturbance, and anxiety; I10 Essential (primary) hypertension
CPT/HCPCS: 36415; 80061

== ENCOUNTER → 2022-02-18 | Outpatient (REF) | payer MEDICARE, MEDICAID, SELFPAY ==
[2022-02-18 08:04] LABS: Absolute Lymphocyte Count 1.41 X10^3/uL (0.83-4.51); Absolute Neutrophil Count 3.8 X10^3/uL (2.0-7.7); Basophil# 0.03 X10^3/uL; Basophil% 0.5 % (0-1); Eosinophil# 0.18 X10^3/uL; Hematocrit 37.7 % (37-47); Hemoglobin 12.2 g/dL (12.0-15.0); Lymphocyte # 1.41 X10^3/ul (0.83-4.51); Lymphocyte % 23.5 % (19-41); Mean Corp Hgb Conc 32.4 g/dL (32-36); Mean Corpuscular Hgb 30.2 pg (27.0-32.0); Mean Corpuscular Volume 93.3 fL (81-99); Mean Platelet Vol. 10.5 fl (6.2-12.0); Monocyte# 0.59 X10^3/uL; Monocyte% 9.8 % (0-10); NRBC Flagged by Analyzer 0 % (0-5); Neutrophil # 3.79 X10^3/uL (2.7-7.7); Platelet Count 212 K/mm3 (150-450); RBC Distribution Width CV 13.4 % (11.6-14.6); RBC Distribution Width SD 45.7 fl (35.1-43.9); Red Blood Count 4.04 M/mm3 (4.2-5.4)
[2022-02-18 08:14] LABS: Anion Gap 6 (5-15); BUN 11 mg/dL (7-18); BUN/Creat Ratio 17.2 RATIO (10-20); Chloride 108 mmol/L (98-107); Creatinine, Serum 0.64 mg/dL (0.55-1.02); EST Glomerular Filtration Rate 94 mL/min (>60); Est Glom Filt Rate - Afr Amer 114 mL/min (>60); Glucose 97 mg/dL (74-106); Potassium 3.6 mmol/L (3.5-5.1); Sodium Level 141 mmol/L (136-145)
== END ==
LOC: OLS.WHLEAS 05:00
PROVIDERS: PCP Family Medicine; Visit Provider Family Medicine
DX: I25.10 Atherosclerotic heart disease of native coronary artery without angina pectoris (principal); I10 Essential (primary) hypertension
CPT/HCPCS: 36415; 80048; 85025

== ENCOUNTER → 2022-03-07 04:30 | Outpatient (REF) | payer MEDICARE, MEDICAID, SELFPAY ==
[2022-03-07 08:42] LABS: Color, Urine Yellow (Yellow); Glucose, Dipstick Normal (Normal); Ketone-Dipstick Negative (Negative); Leukocyte Esterase-Dipstick 500 /ul (Negative); Nitrite-Dipstick Positive (Negative); Occult Blood-Urine 25 /ul (Negative); Protein-Dipstick Negative (Negative); Urine Bilirubin Dipstick Negative (Negative); Urine Clarity Clear (Clear); Urine Urobilinogen Normal (Normal); Urine pH 6.5 (5.0 - 8.0)
== END ==
LOC: OLS.WHLEAS 04:30
PROVIDERS: PCP Family Medicine; Visit Provider Family Medicine
DX: F41.9 Anxiety disorder, unspecified (principal); G30.9 Alzheimer's disease, unspecified; F02.80 Dementia in other diseases classified elsewhere, unspecified severity, without behavioral disturbance, psychotic disturbance, mood disturbance, and anxiety; I10 Essential (primary) hypertension; I25.10 Atherosclerotic heart disease of native coronary artery without angina pectoris; N39.0 Urinary tract infection, site not specified
CPT/HCPCS: 81002; 87077; 87086; 87088; 87186

== ENCOUNTER → 2022-05-20 | Outpatient (REF) | payer MEDICARE, MEDICAID, SELFPAY ==
[2022-05-20 11:04] LABS: Absolute Lymphocyte Count 1.88 X10^3/uL (0.83-4.51); Absolute Neutrophil Count 3.3 X10^3/uL (2.0-7.7); Basophil# 0.04 X10^3/uL; Basophil% 0.7 % (0-1); Eosinophil# 0.24 X10^3/uL; Hematocrit 39.8 % (37-47); Lymphocyte # 1.88 X10^3/ul (0.83-4.51); Lymphocyte % 31.5 % (19-41); Mean Corp Hgb Conc 32.7 g/dL (32-36); Mean Corpuscular Hgb 32.4 pg (27.0-32.0); Mean Corpuscular Volume 99.3 fL (81-99); Mean Platelet Vol. 10.3 fl (6.2-12.0); Monocyte# 0.48 X10^3/uL; NRBC Flagged by Analyzer 0 % (0-5); Neutrophil # 3.32 X10^3/uL (2.7-7.7); Neutrophil % 55.6 % (47-70); Platelet Count 188 K/mm3 (150-450); RBC Distribution Width CV 14.4 % (11.6-14.6); Red Blood Count 4.01 M/mm3 (4.2-5.4)
[2022-05-20 11:39] LABS: Anion Gap 11 (5-15); BUN 10 mg/dL (7-18); BUN/Creat Ratio 13.2 RATIO (10-20); Calcium,Total 9.5 mg/dL (8.5-10.1); Chloride 111 mmol/L (98-107); Creatinine, Serum 0.76 mg/dL (0.55-1.02); EST Glomerular Filtration Rate 77 mL/min (>60); Est Glom Filt Rate - Afr Amer 94 mL/min (>60); Glucose 94 mg/dL (74-106); Potassium 4.1 mmol/L (3.5-5.1); Sodium Level 139 mmol/L (136-145)
== END ==
LOC: OLS.WHLEAS 05:00
PROVIDERS: PCP Family Medicine; Visit Provider Family Medicine
DX: G30.9 Alzheimer's disease, unspecified (principal); F02.81 Dementia in other diseases classified elsewhere, unspecified severity, with behavioral disturbance; I10 Essential (primary) hypertension; I25.10 Atherosclerotic heart disease of native coronary artery without angina pectoris; G47.33 Obstructive sleep apnea (adult) (pediatric); E78.5 Hyperlipidemia, unspecified; G89.21 Chronic pain due to trauma; M79.2 Neuralgia and neuritis, unspecified; F33.9 Major depressive disorder, recurrent, unspecified; F41.9 Anxiety disorder, unspecified; G47.00 Insomnia, unspecified; H25.9 Unspecified age-related cataract; H35.30 Unspecified macular degeneration; K59.00 Constipation, unspecified; L20.9 Atopic dermatitis, unspecified; N39.0 Urinary tract infection, site not specified; B10.89 Other human herpesvirus infection; R48.8 Other symbolic dysfunctions; M25.562 Pain in left knee; M06.252 Rheumatoid bursitis, left hip; K30 Functional dyspepsia; M62.81 Muscle weakness (generalized); Z86.16 Personal history of COVID-19; G89.29 Other chronic pain
CPT/HCPCS: 36415; 80048; 85025

== ENCOUNTER → 2022-08-19 | Outpatient (REF) | payer MEDICARE, MEDICAID, SELFPAY ==
[2022-08-19 09:26] LABS: Absolute Neutrophil Count 3.3 X10^3/uL (2.0-7.7); Basophil# 0.02 X10^3/uL; Basophil% 0.4 % (0-1); Eosinophil# 0.01 X10^3/uL; Eosinophils% 0.2 % (0-5); Hematocrit 41.3 % (37-47); Lymphocyte % 28.8 % (19-41); Mean Corp Hgb Conc 31.5 g/dL (32-36); Mean Corpuscular Hgb 29.3 pg (27.0-32.0); Mean Platelet Vol. 10.7 fl (6.2-12.0); Monocyte# 0.61 X10^3/uL; NRBC Flagged by Analyzer 0 % (0-5); Neutrophil % 59.4 % (47-70); Platelet Count 216 K/mm3 (150-450); RBC Distribution Width CV 12.9 % (11.6-14.6); RBC Distribution Width SD 44.3 fl (35.1-43.9); Red Blood Count 4.44 M/mm3 (4.2-5.4); White Blood Count 5.6 K/mm3 (4.4-11.0)
[2022-08-19 09:34] LABS: Anion Gap 7 (5-15); BUN 14 mg/dL (7-18); BUN/Creat Ratio 19.4 RATIO (10-20); Calcium,Total 9.4 mg/dL (8.5-10.1); Chloride 105 mmol/L (98-107); Creatinine, Serum 0.72 mg/dL (0.55-1.02); EST Glomerular Filtration Rate 82 mL/min (>60); Est Glom Filt Rate - Afr Amer 99 mL/min (>60); Glucose 96 mg/dL (74-106); Sodium Level 141 mmol/L (136-145)
== END ==
LOC: OLS.WHLEAS 05:00
PROVIDERS: PCP Family Medicine; Visit Provider Internal Medicine
DX: I25.10 Atherosclerotic heart disease of native coronary artery without angina pectoris (principal); G30.9 Alzheimer's disease, unspecified; F02.818 Dementia in other diseases classified elsewhere, unspecified severity, with other behavioral disturbance; I10 Essential (primary) hypertension
CPT/HCPCS: 36415; 80048; 85025

== ENCOUNTER → 2022-11-18 | Outpatient (REF) | payer MEDICARE, MEDICAID, SELFPAY ==
[2022-11-18 09:04] LABS: Hematocrit 34.4 % (37-47); Hemoglobin 10.5 g/dL (12.0-15.0); Mean Corp Hgb Conc 30.5 g/dL (32-36); Mean Corpuscular Volume 88.4 fL (81-99); Mean Platelet Vol. 10.7 fl (6.2-12.0); Platelet Count 247 K/mm3 (150-450); RBC Distribution Width CV 13.4 % (11.6-14.6); RBC Distribution Width SD 43.8 fl (35.1-43.9); Red Blood Count 3.89 M/mm3 (4.2-5.4); White Blood Count 5.6 K/mm3 (4.4-11.0)
[2022-11-18 09:19] LABS: Anion Gap 7 (5-15); BUN 12 mg/dL (7-18); BUN/Creat Ratio 18.9 RATIO (10-20); Calcium,Total 9.1 mg/dL (8.5-10.1); Chloride 108 mmol/L (98-107); Creatinine, Serum 0.64 mg/dL (0.55-1.02); EST Glomerular Filtration Rate 95 mL/min (>60); Est Glom Filt Rate - Afr Amer 115 mL/min (>60); Glucose 114 mg/dL (74-106); Potassium 4.1 mmol/L (3.5-5.1); Sodium Level 142 mmol/L (136-145)
== END ==
LOC: OLS.WHLEAS 05:00
PROVIDERS: PCP Family Medicine; Visit Provider Internal Medicine
DX: I25.10 Atherosclerotic heart disease of native coronary artery without angina pectoris (principal); G30.9 Alzheimer's disease, unspecified; F02.818 Dementia in other diseases classified elsewhere, unspecified severity, with other behavioral disturbance; I10 Essential (primary) hypertension
CPT/HCPCS: 36415; 80048; 85027

== ENCOUNTER → 2023-01-12 | Outpatient (REF) | payer MEDICARE, MEDICAID, SELFPAY ==
[2023-01-12 08:02] LABS: Cholesterol 112 mg/dL (200); High Density Lipoprotein 50 mg/dL; Triglycerides 110 mg/dL; Very Low Density Lipoprotein 22 mg/dL (5-40)
== END ==
LOC: OLS.WHLEAS 05:00
PROVIDERS: PCP Family Medicine; Visit Provider Family Medicine
DX: I25.10 Atherosclerotic heart disease of native coronary artery without angina pectoris (principal); G30.9 Alzheimer's disease, unspecified; F02.80 Dementia in other diseases classified elsewhere, unspecified severity, without behavioral disturbance, psychotic disturbance, mood disturbance, and anxiety; I10 Essential (primary) hypertension
CPT/HCPCS: 36415; 80061

== ENCOUNTER → 2023-02-17 | Outpatient (REF) | payer MEDICARE, MEDICAID, SELFPAY ==
[2023-02-17 07:34] LABS: Absolute Lymphocyte Count 1.67 X10^3/uL (0.83-4.51); Absolute Neutrophil Count 3.9 X10^3/uL (2.0-7.7); Basophil# 0.05 X10^3/uL; Basophil% 0.8 % (0-1); Eosinophil# 0.18 X10^3/uL; Eosinophils% 2.8 % (0-5); Hematocrit 37.4 % (37-47); Hemoglobin 11.4 g/dL (12.0-15.0); Lymphocyte # 1.67 X10^3/ul (0.83-4.51); Lymphocyte % 25.9 % (19-41); Mean Corp Hgb Conc 30.5 g/dL (32-36); Mean Corpuscular Hgb 26.3 pg (27.0-32.0); Mean Corpuscular Volume 86.4 fL (81-99); Mean Platelet Vol. 10.6 fl (6.2-12.0); Monocyte# 0.66 X10^3/uL; Monocyte% 10.2 % (0-10); NRBC Flagged by Analyzer 0 % (0-5); Neutrophil # 3.87 X10^3/uL (2.7-7.7); Platelet Count 228 K/mm3 (150-450); RBC Distribution Width CV 17.5 % (11.6-14.6); Red Blood Count 4.33 M/mm3 (4.2-5.4); White Blood Count 6.5 K/mm3 (4.4-11.0)
[2023-02-17 07:52] LABS: Anion Gap 4 (5-15); BUN 11 mg/dL (7-18); BUN/Creat Ratio 16.1 RATIO (10-20); Calcium,Total 8.8 mg/dL (8.5-10.1); Chloride 109 mmol/L (98-107); Creatinine, Serum 0.68 mg/dL (0.55-1.02); EST Glomerular Filtration Rate 87 mL/min (>60); Est Glom Filt Rate - Afr Amer 106 mL/min (>60); Glucose 94 mg/dL (74-106); Potassium 3.7 mmol/L (3.5-5.1); Sodium Level 141 mmol/L (136-145)
== END ==
LOC: OLS.WHLEAS 05:00
PROVIDERS: PCP Family Medicine; Visit Provider Internal Medicine
DX: I25.10 Atherosclerotic heart disease of native coronary artery without angina pectoris (principal); G30.9 Alzheimer's disease, unspecified; F02.818 Dementia in other diseases classified elsewhere, unspecified severity, with other behavioral disturbance; I10 Essential (primary) hypertension
CPT/HCPCS: 36415; 80048; 85025

== ENCOUNTER → 2023-05-19 | Outpatient (REF) | payer MEDICARE, MEDICAID, SELFPAY ==
[2023-05-19 07:04] LABS: Absolute Lymphocyte Count 1.86 X10^3/uL (0.83-4.51); Absolute Neutrophil Count 3.4 X10^3/uL (2.0-7.7); Basophil# 0.05 X10^3/uL; Basophil% 0.8 % (0-1); Eosinophil# 0.09 X10^3/uL; Eosinophils% 1.5 % (0-5); Hematocrit 38.3 % (37-47); Hemoglobin 11.7 g/dL (12.0-15.0); Lymphocyte # 1.86 X10^3/ul (0.83-4.51); Lymphocyte % 30.1 % (19-41); Mean Corp Hgb Conc 30.5 g/dL (32-36); Mean Corpuscular Hgb 27.6 pg (27.0-32.0); Mean Corpuscular Volume 90.3 fL (81-99); Mean Platelet Vol. 10.5 fl (6.2-12.0); Monocyte# 0.73 X10^3/uL; Monocyte% 11.8 % (0-10); NRBC Flagged by Analyzer 0 % (0-5); Neutrophil # 3.43 X10^3/uL (2.7-7.7); Neutrophil % 55.5 % (47-70); Platelet Count 234 K/mm3 (150-450); RBC Distribution Width CV 15.2 % (11.6-14.6); RBC Distribution Width SD 50.2 fl (35.1-43.9); Red Blood Count 4.24 M/mm3 (4.2-5.4); White Blood Count 6.2 K/mm3 (4.4-11.0)
[2023-05-19 07:20] LABS: Anion Gap 3 (5-15); BUN 20 mg/dL (7-18); BUN/Creat Ratio 21.6 RATIO (10-20); Calcium,Total 8.7 mg/dL (8.5-10.1); Chloride 107 mmol/L (98-107); Creatinine, Serum 0.92 mg/dL (0.55-1.02); EST Glomerular Filtration Rate 61 mL/min (>60); Est Glom Filt Rate - Afr Amer 74 mL/min (>60); Glucose 125 mg/dL (74-106); Potassium 3.6 mmol/L (3.5-5.1); Sodium Level 139 mmol/L (136-145)
== END ==
LOC: OLS.WHLEAS 05:00
PROVIDERS: PCP Family Medicine; Visit Provider Internal Medicine
DX: I25.10 Atherosclerotic heart disease of native coronary artery without angina pectoris (principal)
CPT/HCPCS: 36415; 80048; 85025

== ENCOUNTER → 2023-08-18 | Outpatient (REF) | payer MEDICARE, SELFPAY ==
[2023-08-18 09:44] LABS: Absolute Lymphocyte Count 1.67 X10^3/uL (0.83-4.51); Absolute Neutrophil Count 3.1 X10^3/uL (2.0-7.7); Basophil# 0.04 X10^3/uL; Basophil% 0.7 % (0-1); Eosinophil# 0.15 X10^3/uL; Eosinophils% 2.8 % (0-5); Hematocrit 40.7 % (37-47); Hemoglobin 12.9 g/dL (12.0-15.0); Lymphocyte # 1.67 X10^3/ul (0.83-4.51); Lymphocyte % 30.8 % (19-41); Mean Corp Hgb Conc 31.7 g/dL (32-36); Mean Corpuscular Hgb 28.4 pg (27.0-32.0); Mean Corpuscular Volume 89.5 fL (81-99); Mean Platelet Vol. 10.4 fl (6.2-12.0); Monocyte# 0.51 X10^3/uL; Monocyte% 9.4 % (0-10); NRBC Flagged by Analyzer 0 % (0-5); Neutrophil # 3.05 X10^3/uL (2.7-7.7); Neutrophil % 56.1 % (47-70); Platelet Count 221 K/mm3 (150-450); RBC Distribution Width CV 13.9 % (11.6-14.6); RBC Distribution Width SD 45.5 fl (35.1-43.9); Red Blood Count 4.55 M/mm3 (4.2-5.4); White Blood Count 5.4 K/mm3 (4.4-11.0)
[2023-08-18 11:37] LABS: Anion Gap 3 (5-15); BUN 11 mg/dL (7-18); BUN/Creat Ratio 16.6 RATIO (10-20); Calcium,Total 8.8 mg/dL (8.5-10.1); Chloride 109 mmol/L (98-107); Creatinine, Serum 0.66 mg/dL (0.55-1.02); EST Glomerular Filtration Rate 90 mL/min (>60); Est Glom Filt Rate - Afr Amer 109 mL/min (>60); Glucose 89 mg/dL (74-106); Sodium Level 141 mmol/L (136-145)
== END ==
LOC: OLS.WHLEAS 05:00
PROVIDERS: PCP Family Medicine; Visit Provider Internal Medicine
DX: I25.10 Atherosclerotic heart disease of native coronary artery without angina pectoris (principal)
CPT/HCPCS: 36415; 80048; 85025

== ENCOUNTER → 2023-11-17 | Outpatient (REF) | payer MEDICARE, SELFPAY ==
[2023-11-17 08:23] LABS: Absolute Lymphocyte Count 1.64 X10^3/uL (0.83-4.51); Absolute Neutrophil Count 3.8 X10^3/uL (2.0-7.7); Basophil# 0.04 X10^3/uL; Basophil% 0.6 % (0-1); Eosinophil# 0.11 X10^3/uL; Eosinophils% 1.8 % (0-5); Hematocrit 39.3 % (37-47); Hemoglobin 12.9 g/dL (12.0-15.0); Lymphocyte # 1.64 X10^3/ul (0.83-4.51); Lymphocyte % 26.6 % (19-41); Mean Corp Hgb Conc 32.8 g/dL (32-36); Mean Corpuscular Hgb 30.1 pg (27.0-32.0); Mean Corpuscular Volume 91.8 fL (81-99); Mean Platelet Vol. 9.9 fl (6.2-12.0); Monocyte# 0.58 X10^3/uL; Monocyte% 9.4 % (0-10); NRBC Flagged by Analyzer 0 % (0-5); Neutrophil # 3.76 X10^3/uL (2.7-7.7); Neutrophil % 61.1 % (47-70); Platelet Count 230 K/mm3 (150-450); RBC Distribution Width CV 14.3 % (11.6-14.6); Red Blood Count 4.28 M/mm3 (4.2-5.4); White Blood Count 6.2 K/mm3 (4.4-11.0)
[2023-11-17 08:41] LABS: Anion Gap 3 (5-15); BUN 14 mg/dL (7-18); BUN/Creat Ratio 18.6 RATIO (10-20); Calcium,Total 9.2 mg/dL (8.5-10.1); Chloride 109 mmol/L (98-107); Creatinine, Serum 0.75 mg/dL (0.55-1.02); EST Glomerular Filtration Rate 78 mL/min (>60); Est Glom Filt Rate - Afr Amer 94 mL/min (>60); Glucose 91 mg/dL (74-106); Potassium 3.8 mmol/L (3.5-5.1); Sodium Level 140 mmol/L (136-145)
== END ==
LOC: OLS.WHLEAS 05:00
PROVIDERS: PCP Family Medicine; Visit Provider Internal Medicine
DX: I10 Essential (primary) hypertension (principal); I25.10 Atherosclerotic heart disease of native coronary artery without angina pectoris
CPT/HCPCS: 36415; 80048; 85025

== ENCOUNTER 2024-02-07 02:55 | Emergency (ER) | payer MEDICARE, MEDICAID, SELFPAY ==
[2024-02-07 02:56] VITALS: BP 167/86; PULSE 82; RESP 16; TEMP 36.4; O2SAT 100; BMI 27.1
[2024-02-07 03:02] VITALS: O2SAT 100
--- NOTE | 2024-02-07 03:10 | EKG12_ITS ---
Test Reason : FALL Blood Pressure : / mmHG Vent. Rate : 074 BPM Atrial Rate : 074 BPM P-R Int : 154 ms QRS Dur : 072 ms QT Int : 462 ms P-R-T Axes : 055 038 052 degrees QTc Int : 512 ms Normal sinus rhythm Prolonged QT Abnormal ECG Confirmed by MALIK GE, CHRIS ([id number]), news videotape editor TABITHA DUDLEY ([id number]) on 02/11/2024 6:12:18 AM Referred By: Confirmed By:THOMAS GAN MD
--- NOTE | 2024-02-07 03:10 | RAD_ITS ---
EXAM: XR LEFT HIP WITH PELVIS WHEN PERFORMED, 2 OR 3 VIEWS CLINICAL INDICATION: pain TECHNIQUE: Two or three views of the left hip with pelvis when performed. COMPARISON: No relevant prior studies available. FINDINGS: BONES/JOINTS: Severe degenerative changes of the left hip with partial collapse of the femoral head. Right total hip arthroplasty. No displaced fracture. No destructive or sclerotic lesions. Note that overlapping bowel shadows may however obscure fine detail. Sacroiliac joint is unremarkable. No widening of the pubic symphysis. SOFT TISSUES: Unremarkable. No soft tissue swelling or gas. RAD/HIP, UNI W/ Pelvis 2-3 Views IMPRESSION: Severe degenerative changes of the left hip with partial collapse of the femoral head. This may indicate sequela of AVN. Electronically Signed: Rod Floyd MD at 4:32 EDT ,
--- NOTE | 2024-02-07 03:10 | RAD_ITS ---
EXAM: XR LUMBOSACRAL SPINE, 2 OR 3 VIEWS CLINICAL INDICATION: pain TECHNIQUE: Frontal and lateral views of the lumbar spine and sacrum. COMPARISON: No relevant prior studies available. FINDINGS: VERTEBRAE: Unremarkable. Preserved vertebral body height. No fracture. No spondylolisthesis. Preservation of the normal lumbar lordosis. No significant facet arthropathy. DISC SPACES: Degenerative changes of the intervertebral discs. GASTROINTESTINAL TRACT: Unremarkable as visualized. Included bowel gas pattern is non-obstructive. RAD/Lumbar Spine 2 or 3 Views IMPRESSION: 1. No acute injuries identified involving the lumbar spine. 2. Degenerative changes. Electronically Signed: Rod Floyd MD at 4:32 EDT ,
[2024-02-07] MEDS: Ondansetron 4 MG/2 ML Vial IV (03:18)
[2024-02-07] MEDS: HYDROmorphone 0.5 MG/0.5 ML SYRINGE IV (03:18)
[2024-02-07] MEDS: 0.9% Normal Saline (1000mL) 1,000 ML 125 ML IV (03:18)
[2024-02-07 03:23] LABS: Absolute Neutrophil Count 7.6 X10^3/uL (2.0-7.7); Basophil# 0.04 X10^3/uL; Basophil% 0.4 % (0-1); Hematocrit 40.6 % (37-47); Hemoglobin 13.6 g/dL (12.0-15.0); Lymphocyte % 17.5 % (19-41); Mean Corp Hgb Conc 33.5 g/dL (32-36); Mean Corpuscular Hgb 31.7 pg (27.0-32.0); Mean Corpuscular Volume 94.6 fL (81-99); Mean Platelet Vol. 9.6 fl (6.2-12.0); Monocyte# 0.84 X10^3/uL; Monocyte% 8.2 % (0-10); NRBC Flagged by Analyzer 0 % (0-5); Neutrophil # 7.56 X10^3/uL (2.7-7.7); Neutrophil % 73.6 % (47-70); Platelet Count 274 K/mm3 (150-450); RBC Distribution Width CV 13.3 % (11.6-14.6); RBC Distribution Width SD 46.2 fl (35.1-43.9); Red Blood Count 4.29 M/mm3 (4.2-5.4); White Blood Count 10.3 K/mm3 (4.4-11.0)
[2024-02-07 03:37] LABS: Prothrombin Time (Protime)PT. 13.5 SECONDS (11.7-14.9)
[2024-02-07 03:38] LABS: Partial Thromboplast Time 25.6 Seconds (24.1-36.2)
--- NOTE | 2024-02-07 03:38 | CT_ITS ---
EXAM: CT HEAD WITHOUT INTRAVENOUS CONTRAST CLINICAL INDICATION: fall/syncope TECHNIQUE: Multiple axial images were obtained of the head without intravenous contrast. This CT exam was performed using one or more of the following dose reduction techniques: automated exposure control, adjustment of the mA and/or kV according to patient size, and/or use of iterative reconstruction technique. RADIATION DOSE: CTDIvol = 44.99 mGy, DLP = 812.98 mGy-cm COMPARISON: No relevant prior studies available. FINDINGS: BRAIN AND EXTRA-AXIAL SPACES: Diffuse cerebral volume loss. Periventricular small vessel ischemic changes. No intra- or extra-axial hemorrhage. No intracranial mass or mass effect. Posterior fossa structures are unremarkable. No hydrocephalus. Basal cisterns are patent. BONES/JOINTS: Unremarkable. No discrete lytic or blastic abnormalities. VASCULATURE: Vascular calcifications. SINUSES: Unremarkable as visualized. Clear. MASTOID AIR CELLS: Unremarkable. Clear. ORBITS: Visualized globes, extraocular muscles, optic nerves and retrobulbar fat appear unremarkable. CT/Brain/Head without Contrast IMPRESSION: 1. No acute intracranial abnormalities. 2. Age-related changes. Electronically Signed: Rod Floyd MD at 4:30 EDT ,
[2024-02-07 03:44] LABS: Anion Gap 11 (5-15); BUN 11 mg/dL (7-18); BUN/Creat Ratio 16.3 RATIO (10-20); Calcium,Total 9.5 mg/dL (8.5-10.1); Chloride 101 mmol/L (98-107); Creatinine, Serum 0.67 mg/dL (0.55-1.02); EST Glomerular Filtration Rate 88 mL/min (>60); Est Glom Filt Rate - Afr Amer 107 mL/min (>60); Estimated Creatinine Clearance 47.12 ml/min; Glucose 112 mg/dL (74-106); Sodium Level 138 mmol/L (136-145)
--- NOTE | 2024-02-07 03:50 | RAD_ITS ---
EXAM: XR CHEST, 1 VIEW CLINICAL INDICATION: fall TECHNIQUE: Frontal view of the chest. COMPARISON: Single view chest 05/27/2019. . FINDINGS: LUNGS AND PLEURAL SPACES: Unremarkable. No consolidation or edema. No pneumothorax. No effusion. HEART: Unremarkable. Cardiac silhouette not enlarged. MEDIASTINUM: Surgical changes of the mediastinum. BONES/JOINTS: Unremarkable. No acute fracture. SOFT TISSUES: Unremarkable. RAD/Chest 1 View (Portable) IMPRESSION: No acute findings in the chest. Electronically Signed: Rod Floyd MD at 4:33 EDT ,
[2024-02-07 04:15] LABS: Magnesium 2.3 mg/dL (1.6-2.6)
--- NOTE | 2024-02-07 04:38 | HP.PCM.HOS_ITS ---
[facility] - General General Date of Admission: 02/07/24 Date of Service: 02/07/24 Chief Complaint: Fall with Left Hip Pain. HPI Narrative AGUSTIN GARCIA, is a 83 F with a past medical history of essential hypertension, hyperlipidemia, overweight; with BMI of 27.2 this admission, obstructive sleep apnea, history of paroxysmal atrial fibrillation; on BASA, CAD; status post CABG (2011), PVD; with history of intermittent claudication and multiple toe amputations, chronic dementia; on donepezil, neuropathy, overactive bladder, depression, macular degeneration, history of cholecystectomy, osteoarthritis; with history of cervical fusion C3-C5 (1991) chronic pain syndrome and history of Supartz injections to the Left knee and DNR CCA CODE STATUS; apparently with intubation who presents to [facility] ER complaining of fall with Left hip pain. Ms. Garcia is not a fully reliable historian at this time so information was gathered from chart, medical staff and computer. According to the records EMS was activated as a response the patient having fallen and was still on the floor when they arrived. She primarily complained of Left hip pain that was worse with movement but was not completely relieved by rest. There is no report of fever, chills, nausea, vomiting, diarrhea, constipation, chest pain, shortness of breath or diaphoresis but she does admit to having pain with minimal movement and being unable to ambulate. In the ER she was noted to have radiographic evidence of severe degenerative changes of the left hip with partial collapse of the femoral head indicating likely sequela of avascular necrosis complicated by generalized weakness with ambulatory dysfunction due to pain after mechanical fall compounded by laboratory evidence of hypokalemia of 3 mmol/L present on admission in the setting of chronic dementia and she was then admitted to the general medical floor for ongoing care for stay that is expected to extend beyond 2 midnights. [facility] Medical History Dyspnea Intermittent claudication Shortness of breath Family history of coronary artery disease Family history of hyperlipidemia Family history of hypertension Home Medications ?Medication ?Instructions ?Recorded ?Last Taken ?Type aspirin 81 mg tablet,delayed 81 mg PO DAILY@0800 07/25/14 05/25/15 History release diclofenac sodium 1 % topical gel 4 g topical BID 09/30/21 Unknown History pregabalin 50 mg capsule (Lyrica) 50 mg PO QHS 09/30/21 Unknown History acetaminophen 325 mg capsule 650 mg PO Q4H PRN fever or pain 04/09/23 Unknown History clonidine HCl 0.1 mg tablet 0.1 mg PO Q2H PRN hypertensive 04/09/23 Unknown History emergency escitalopram oxalate 10 mg tablet 10 mg PO DAILY 04/09/23 Unknown History melatonin 3 mg capsule 3 mg PO HS 04/09/23 Unknown History oxycodone 5 mg capsule 5 mg PO Q6H PRN pain 04/09/23 Unknown History acetaminophen 500 mg tablet 1,000 mg PO TID 02/07/24 Unknown History donepezil 10 mg tablet 10 mg PO QHS 02/07/24 Unknown History duloxetine 30 mg capsule,delayed 30 mg PO QHS 02/07/24 Unknown History release duloxetine 60 mg capsule,delayed 60 mg PO DAILY 02/07/24 Unknown History release oxycodone 5 mg tablet 5 mg PO Q12H 02/07/24 Unknown History sennosides 8.6 mg-docusate sodium 2 tab-cap PO QHS 02/07/24 Unknown History 50 mg tablet (Senexon-S) Allergy/AdvReac Type Severity Reaction Status Date / Time sulfamethoxazole Allergy Unknown Other Verified 02/07/24 02:59 acetaminophen (From Vicodin) Allergy Other Verified 02/07/24 02:59 hydrocodone (From Vicodin) Allergy Other Verified 02/07/24 02:59 Family History Other Family history of coronary artery disease Family history of hyperlipidemia Family history of hypertension Social History Smoking Status: Never smoker ROS ROS Narrative This patient is confused and in acute distress due to her pain arising from her recent injury and she cannot complete a full review of systems at this time. Vital Signs Vital Signs Vital Signs: 02/07/24 02:56 02/07/24 03:02 Temperature 97.5 F L Temperature Source Temporal Pulse Rate 82 Respiratory Rate 16 Respiratory Effort Normal Non-Labored Respiratory Depth Normal Respiratory Pattern Normal Blood Pressure 167/86 H Blood Pressure Mean 113 Pulse Ox 100 100 Oxygen Delivery Method Room Air Room Air Weight Weight: 148 lb 9.465 oz Body Mass Index (BMI) 27.1 Physical Exam Const alert and average body habitus Constitutional Narrative: Moderate distress noted with pain with minimal movement. General Appearance: cooperative Orientation / Consciousness: confused HEENT normocephalic, head/scalp atraumatic, hearing grossly normal bilaterally and moist oral mucous membranes Eyes PERRL and EOMs intact bilaterally Neck no lymphadenopathy and supple Resp normal respiratory effort, no retractions, no use of accessory muscles and clear to auscultation bilaterally Cardio regular rate and regular rhythm GI normal to inspection, nondistended, normoactive bowel sounds, soft to palpation, non-tender and non-distended Extremity Extremity Narrative: Left lower extremity increased pain with flexion extension with no external rotation or shortening noted. Good peripheral pulses no signs of vascular compromise or compartment syndrome. She was noted to have multiple previous toe amputations on both feet. Skin Skin Narrative: Patient has no evidence of rash or jaundice. Neuro CN's II-XII intact bilaterally, moves all extremities and no focal motor deficits Sensorium / Orientation: awake, alert and oriented to person Speech: speech normal Psych Mood & Affect: depressed and anxious Results Medical Records Data Attestation: I reviewed the patient's medical records Lab / Micro Data Attestation: I reviewed the patient's lab results. 02/07/24 03:06 02/07/24 03:06 Labs: Laboratory Results - last 24 hr 02/07/24 03:06: WBC 10.3, RBC 4.29, Hgb 13.6, Hct 40.6, MCV 94.6, MCH 31.7, MCHC 33.5, RDW Std Deviation 46.2 H, RDW Coeff of Jeff 13.3, Plt Count 274, MPV 9.6, Immature Gran % (Auto) 0.300, Neut % (Auto) 73.6 H, Lymph % (Auto) 17.5 L, [place] % (Auto) 8.2, Eos % (Auto) 0.0, Baso % (Auto) 0.4, Absolute Neuts (auto) 7.6, Absolute Lymphs (auto) 1.80, Nucleated RBC % 0, PT 13.5, INR 1.0, APTT 25.6, Sodium 138, Potassium 3.0 L, Chloride 101, Carbon Dioxide 26.0, Anion Gap 11, BUN 11, Creatinine 0.67, Estim Creat Clear Calc 47.12, Est GFR (MDRD) Af Amer 107, Est GFR (MDRD) Non-Af 88, BUN/Creatinine Ratio 16.3, Glucose 112 H, Calcium 9.5, Magnesium 2.3 Imaging Radiology Impression Hip/Pelvis X-Ray 02/07/24 03:10 IMPRESSION: Severe degenerative changes of the left hip with partial collapse of the femoral head. This may indicate sequela of AVN. Electronically Signed: Rod Floyd MD at 4:32 EDT Reading Location ID and State: [facility] / [place] Tel , Service support , Lumbar Spine X-Ray 02/07/24 03:10 IMPRESSION: 1. No acute injuries identified involving the lumbar spine. 2. Degenerative changes. Electronically Signed: Rod Floyd MD at 4:32 EDT Reading Location ID and State: [facility] / [place] Tel , Service support , Brain CT 02/07/24 03:38 IMPRESSION: 1. No acute intracranial abnormalities. 2. Age-related changes. Electronically Signed: Rod Floyd MD at 4:30 EDT Reading Location ID and State: [email or web address] [employer] Tel , Service support , Chest X-Ray 02/07/24 03:50 IMPRESSION: No acute findings in the chest. Electronically Signed: Rod Floyd MD at 4:33 EDT Reading Location ID and State: [email or web address] [employer] Tel , Service support , Assessment & Plan Assessment/Plan (1) Avascular necrosis of bone of left hip: (2) History of fall: (3) Ambulatory dysfunction: (4) Hypertension: QUALIFIERS: Hypertension type: unspecified Qualified Code(s): I10 - Essential (primary) hypertension (5) Hyperlipidemia: QUALIFIERS: Hyperlipidemia type: unspecified Qualified Code(s): E 78.5 - Hyperlipidemia, unspecified (6) Aortocoronary bypass status: (7) Obstructive sleep apnea: (8) Paroxysmal atrial fibrillation: PLAN: Plan 1. Radiographic evidence of severe degenerative changes of the Left hip with partial collapse of the femoral head indicating likely sequela of avascular necrosis in the setting of recent mechanical fall - Admit to general medical floor. Give Tylenol as needed for [id number] (level 1-5 out of 10) pain or fever. Give morphine IV as needed for severe (level 6-10 out of 10) pain. Finally, we will consult orthopedic surgeon on-call for further recommendations on treatment options with help appreciated in advance. 2. Hypokalemia of 3 mmol/L present on admission complicating #1 - Give supplemental KCl and then recheck BMP in the a.m. to ensure improvement. 3. Osteoarthritis; with history of cervical fusion C3-C5 (1991) chronic pain syndrome and history of Supartz injections to the Left knee compounding #1 & #2 - Noted. 4. Chronic dementia; on donepezil - Stable. Continue donepezil as previous. 5. Essential hypertension - Resume home regimen plus give as needed IV hydralazine for systolic blood pressure greater than 160 mmHg. 6. Hyperlipidemia - Continue statin as previous. 7. Overweight; with BMI of 27.2 this admission plus obstructive sleep apnea - Weight loss will be recommended but is unlikely given her confusion. 8. History of paroxysmal atrial fibrillation; on BASA - Patient suspected to be appropriately not on full anticoagulation due to elevated fall risk. 9. CAD; status post CABG (2011) - Noted. 10. PVD; with history of intermittent claudication and multiple toe amputations - Stable. Continue chronic baby aspirin daily. 11. Neuropathy - Resume Lyrica as previous. 12. Overactive bladder - Noted. 13. Depression - Home regimen to continue. 14. Macular degeneration - Stable. 15. History of cholecystectomy - Noted. 16. DNR CCA CODE STATUS; apparently with intubation - Formal updated records will need to be obtained to ensure accuracy as this patient is confused due to chronic dementia. 17. DVT prophylaxis - SCD's only on RLE in case surgical treatment is pursued. Total time: Approximately 75 minutes. Charges/Coding Visit Charges Inpatient E&M: 83944 Init Hosp L3
[2024-02-07 05:11] VITALS: BP 122/98; PULSE 78; RESP 16; TEMP 36.2; O2SAT 97
--- NOTE | 2024-02-07 05:11 | EDS_ITS ---
HPI History of Present Illness Chief Complaint: Fall Informant: EMS and SNF Narrative Narrative: Patient is an 83-year-old female from [place] with past medical history of hypertension hyperlipidemia and dementia. Secondary to the dementia she cannot provide any further history. EMS along with nursing reports that the patient fell while there and there is concern she may have a hip fracture as she has been complaining of the left hip/leg pain. Secondary to this she was sent in for evaluation [facility] Medical History Dyspnea Intermittent claudication Shortness of breath Family history of coronary artery disease Family history of hyperlipidemia Family history of hypertension Home Medications ?Medication ?Instructions ?Recorded ?Last Taken ?Type aspirin 81 mg tablet,delayed 81 mg PO DAILY@0800 07/25/14 05/25/15 History release diclofenac sodium 1 % topical gel 4 g topical BID 09/30/21 Unknown History pregabalin 50 mg capsule (Lyrica) 50 mg PO QHS 09/30/21 Unknown History acetaminophen 325 mg capsule 650 mg PO Q4H PRN fever or pain 04/09/23 Unknown History clonidine HCl 0.1 mg tablet 0.1 mg PO Q2H PRN hypertensive 04/09/23 Unknown History emergency escitalopram oxalate 10 mg tablet 10 mg PO DAILY 04/09/23 Unknown History melatonin 3 mg capsule 3 mg PO HS 04/09/23 Unknown History oxycodone 5 mg capsule 5 mg PO Q6H PRN pain 04/09/23 Unknown History acetaminophen 500 mg tablet 1,000 mg PO TID 02/07/24 Unknown History donepezil 10 mg tablet 10 mg PO QHS 02/07/24 Unknown History duloxetine 30 mg capsule,delayed 30 mg PO QHS 02/07/24 Unknown History release duloxetine 60 mg capsule,delayed 60 mg PO DAILY 02/07/24 Unknown History release oxycodone 5 mg tablet 5 mg PO Q12H 02/07/24 Unknown History sennosides 8.6 mg-docusate sodium 2 tab-cap PO QHS 02/07/24 Unknown History 50 mg tablet (Senexon-S) Allergy/AdvReac Type Severity Reaction Status Date / Time sulfamethoxazole Allergy Unknown Other Verified 02/07/24 02:59 acetaminophen (From Vicodin) Allergy Other Verified 02/07/24 02:59 hydrocodone (From Vicodin) Allergy Other Verified 02/07/24 02:59 Family History Other Family history of coronary artery disease Family history of hyperlipidemia Family history of hypertension Social History Smoking Status: Never smoker ROS ROS ED ROS Narrative Review of systems cannot be obtained secondary to patient's history of dementia Review of Systems ROS Unobtainable: due to mental status EXAM Physical Exam Const Vital Signs: 02/07/24 02:56 02/07/24 03:02 Temperature 97.5 F L Temperature Source Temporal Pulse Rate 82 Respiratory Rate 16 Respiratory Effort Normal Non-Labored Respiratory Depth Normal Respiratory Pattern Normal Blood Pressure 167/86 H Blood Pressure Mean 113 Pulse Ox 100 100 Oxygen Delivery Method Room Air Room Air Positive well nourished and well developed General Appearance ED: well developed; Negative for pallor HEENT HEENT Narrative: Normocephalic atraumatic No signs of depressed or basilar skull fracture Eyes PERRL and EOMs intact bilaterally General Eye ED: Negative for pale conjunctiva or scleral icterus Neck supple Neck Narrative: No nuchal rigidity noted No bony deformity or step-off of the cervical spine no midline tenderness to palpation Chest Wall palpation of chest normal Chest Narrative: No bony deformity or crepitance noted Resp normal respiratory effort and clear to auscultation bilaterally Resp Narrative: Breath sounds are diminished throughout but overall clear to auscultation without signs of respiratory distress Cardio regular rate and regular rhythm GI non-tender and non-distended GI Narrative: Soft nontender nondistended with hypoactive bowel sounds. No voluntary guarding or rigidity or pulsatile mass or peritoneal signs Auscultation: hypoactive bowel sounds Palpation: soft Back/Spine Back/Spine Narrative: No bony deformity or step-off of the thoracic or lumbar spine no midline tenderness to palpation Extremity Extremity Narrative: Pelvis is stable. There is slight shortening of the left leg compared to the right but no obvious external rotation. There is mild diffuse pain with palpation of the left hip region without obvious bony deformity or joint effusion. Neuro CN's II-XII intact bilaterally Neuro Narrative: Patient is at her baseline mental status without focal neurologic deficit Psych Psych Narrative: Patient has a tearful/anxious affect Skin no rashes or lesions noted and no wounds General Skin Exam: Negative for jaundice or pallor MDM MDM MDM Narrative Medical decision making narrative: Patient arrived to the ER at her baseline mental status. She cannot offer further history based on her dementia. On exam she has pain along the left hip and there is slight shortening so there is concern for potential hip fracture versus hip contusion. Based on her advanced age there is also concern for skull fracture versus subdural or subarachnoid hemorrhage based on the fall and even potential rib fracture or lumbar spine compression fracture or spondylolisthesis. Secondary to this imaging studies were obtained. CT of the head revealed no acute traumatic skull or brain injury and x-rays of the chest low back and hip did not reveal any acute trauma. The hip shows changes consistent with avascular necrosis which chart review reveals is chronic in nature. The patient was extremely agitated and anxious upon arrival and she was given a stuffed animal and this resolved her anxiety and her pain. Therefore this time with improvement of symptoms with just the presentation of a stuffed animal and imaging studies revealing no signs of acute trauma and the fact her avascular necrosis is a chronic issue I do not feel there is need for admission and she is otherwise safe for discharge Lab Data Attestation: I reviewed the patient's lab results. Labs: Laboratory Results - last 24 hr 02/07/24 03:06 WBC 10.3 RBC 4.29 Hgb 13.6 Hct 40.6 MCV 94.6 MCH 31.7 MCHC 33.5 RDW Std Deviation 46.2 H RDW Coeff of Jeff 13.3 Plt Count 274 MPV 9.6 Immature Gran % (Auto) 0.300 Neut % (Auto) 73.6 H Lymph % (Auto) 17.5 L [place] % (Auto) 8.2 Eos % (Auto) 0.0 Baso % (Auto) 0.4 Absolute Neuts (auto) 7.6 Absolute Lymphs (auto) 1.80 Nucleated RBC % 0 PT 13.5 INR 1.0 APTT 25.6 Sodium 138 Potassium 3.0 L Chloride 101 Carbon Dioxide 26.0 Anion Gap 11 BUN 11 Creatinine 0.67 Estim Creat Clear Calc 47.12 Est GFR (MDRD) Af Amer 107 Est GFR (MDRD) Non-Af 88 BUN/Creatinine Ratio 16.3 Glucose 112 H Calcium 9.5 Magnesium 2.3 Radiography Diagnostic Testing: Clinical Impression(s) from Imaging Studies Hip/Pelvis X-Ray 02/07/24 03:10 IMPRESSION: Severe degenerative changes of the left hip with partial collapse of the femoral head. This may indicate sequela of AVN. Electronically Signed: Rod Floyd MD at 4:32 EDT Reading Location ID and State: [facility] / [place] Tel , Service support , Lumbar Spine X-Ray 02/07/24 03:10 IMPRESSION: 1. No acute injuries identified involving the lumbar spine. 2. Degenerative changes. Electronically Signed: Rod Floyd MD at 4:32 EDT , Brain CT 02/07/24 03:38 IMPRESSION: 1. No acute intracranial abnormalities. 2. Age-related changes. Electronically Signed: Rod Floyd MD at 4:30 EDT , Chest X-Ray 02/07/24 03:50 IMPRESSION: No acute findings in the chest. Electronically Signed: Rod Floyd MD at 4:33 EDT , Chest x-ray as interpreted by the emergency medicine physician reveals no acute rib fracture or pneumothorax or infiltrate Lumbar spine x-ray as interpreted by the emergency medicine physician reveals age-related osteoarthritic/degenerative changes without acute compression fracture Left hip with 1 view pelvis x-ray as interpreted by the emergency medicine physician reveals avascular necrosis with partial collapse of the femoral head without obvious fracture or dislocation Discharge Plan Triage Chief Complaint: Fall ED Provider: Charles Richter Dx/Rx/DC Orders Clinical Impression: Avascular necrosis of bone of left hip, Paroxysmal atrial fibrillation, Dementia, History of fall, Hypertension Instructions: Dementia Daily Care, Understanding Osteonecrosis Prescriptions: No Action diclofenac sodium 1 % gel 4 g topical BID Rx Instructions: apply to single elbow, wrist or hand; for hand includes palm/fingers/back of hand pregabalin [Lyrica] 50 mg capsule 50 mg PO QHS acetaminophen 325 mg capsule 650 mg PO Q4H PRN (Reason: fever or pain) clonidine HCl 0.1 mg tablet 0.1 mg PO Q2H PRN (Reason: hypertensive emergency) Rx Instructions: If SBP >190 or DBP >110 may give 0.1mg PO, if after 2 hours BP still above parameters, may give another 0.1mg PO. escitalopram oxalate 10 mg tablet 10 mg PO DAILY melatonin 3 mg capsule 3 mg PO HS oxycodone 5 mg capsule 5 mg PO Q6H PRN (Reason: pain) aspirin 81 MG tablet 81 mg PO DAILY@0800 Patient Comments: HEART/BLOOD PRESSURE oxycodone 5 mg tablet 5 mg PO Q12H sennosides-docusate sodium [Senexon-S] 8.6-50 mg tablet 2 tab-cap PO QHS acetaminophen 500 mg tablet 1,000 mg PO TID donepezil 10 mg tablet 10 mg PO QHS duloxetine 30 mg capsule,delayed release(DR/EC) 30 mg PO QHS duloxetine 60 mg capsule,delayed release(DR/EC) 60 mg PO DAILY Primary Care Provider: Yesika Faust Referrals: Yesika Faust MD [Primary Care Provider] - Activity Restrictions/Additional Instructions: The patient's workup today showed no sign of skull fracture or brain bleed as well there are no findings of acute fracture but chronic breakdown of the left hip bone which has been shown in the past. Print Language: Icelandic Disposition Disposition: Home, Self Care Discharge Date/Time: 02/07/24 06:37
== END 2024-02-07 06:37 | disposition home or self-care (01) ==
PROVIDERS: Emergency Provider Emergency Medicine; PCP Internal Medicine; Visit Provider Emergency Medicine
DX: Z04.3 Encounter for examination and observation following other accident (principal); M87.052 Idiopathic aseptic necrosis of left femur; F03.90 Unspecified dementia, unspecified severity, without behavioral disturbance, psychotic disturbance, mood disturbance, and anxiety; I48.0 Paroxysmal atrial fibrillation; I10 Essential (primary) hypertension; E78.5 Hyperlipidemia, unspecified; Z79.82 Long term (current) use of aspirin; Z79.899 Other long term (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 therapy
CPT/HCPCS: 70450; 71045; 72100; 73502; 80048; 83735; 85025; 85610; 85730; 93005; 96361; 96374; 96375; 99283; J7030; A4216; J2405

== ENCOUNTER → 2024-02-09 | Outpatient (REF) | payer MEDICARE, MEDICAID, SELFPAY ==
[2024-02-10 08:52] LABS: Color, Urine Yellow (Yellow); Glucose, Dipstick Normal (Normal); Ketone-Dipstick Negative (Negative); Leukocyte Esterase-Dipstick 500 /ul (Negative); Nitrite-Dipstick Positive (Negative); Occult Blood-Urine 25 /ul (Negative); Protein-Dipstick 15 mg/dl (Negative); Specific Gravity, Urine 1.005 (1.002-1.030); Urine Bilirubin Dipstick Negative (Negative); Urine Clarity Sl. Cloudy (Clear); Urine Urobilinogen Normal (Normal)
== END ==
LOC: OLS.WHLEAS 05:00
PROVIDERS: PCP Internal Medicine; Visit Provider Internal Medicine
DX: R30.0 Dysuria (principal)
CPT/HCPCS: 81002; 87086; 87088; 87186

== ENCOUNTER → 2024-02-16 | Outpatient (REF) | payer MEDICARE, MEDICAID, SELFPAY ==
[2024-02-16 08:32] LABS: Absolute Lymphocyte Count 1.56 X10^3/uL (0.83-4.51); Absolute Neutrophil Count 9.4 X10^3/uL (2.0-7.7); Basophil# 0.05 X10^3/uL; Basophil% 0.4 % (0-1); Eosinophil# 0.01 X10^3/uL; Eosinophils% 0.1 % (0-5); Hematocrit 42.6 % (37-47); Hemoglobin 14.2 g/dL (12.0-15.0); Lymphocyte # 1.56 X10^3/ul (0.83-4.51); Mean Corp Hgb Conc 33.3 g/dL (32-36); Mean Corpuscular Hgb 31.8 pg (27.0-32.0); Mean Corpuscular Volume 95.3 fL (81-99); Monocyte# 0.86 X10^3/uL; Monocyte% 7.2 % (0-10); NRBC Flagged by Analyzer 0 % (0-5); Neutrophil # 9.44 X10^3/uL (2.7-7.7); Neutrophil % 78.8 % (47-70); Platelet Count 340 K/mm3 (150-450); RBC Distribution Width CV 13.2 % (11.6-14.6); RBC Distribution Width SD 46.2 fl (35.1-43.9); Red Blood Count 4.47 M/mm3 (4.2-5.4)
[2024-02-16 09:11] LABS: Anion Gap 8 (5-15); BUN 8 mg/dL (7-18); BUN/Creat Ratio 10.6 RATIO (10-20); Calcium,Total 9.6 mg/dL (8.5-10.1); Chloride 98 mmol/L (98-107); Cholesterol 154 mg/dL (200); Creatinine, Serum 0.76 mg/dL (0.55-1.02); EST Glomerular Filtration Rate 77 mL/min (>60); Est Glom Filt Rate - Afr Amer 94 mL/min (>60); Glucose 107 mg/dL (74-106); High Density Lipoprotein 56 mg/dL; Potassium 2.6 mmol/L (3.5-5.1); Sodium Level 134 mmol/L (136-145); Triglycerides 156 mg/dL; Very Low Density Lipoprotein 31 mg/dL (5-40)
== END ==
LOC: OLS.WHLEAS 05:00
PROVIDERS: PCP Internal Medicine; Visit Provider Internal Medicine
DX: I10 Essential (primary) hypertension (principal); I25.10 Atherosclerotic heart disease of native coronary artery without angina pectoris
CPT/HCPCS: 36415; 80048; 80061; 85025

== ENCOUNTER → 2024-02-18 | Outpatient (REF) | payer MEDICARE, MEDICAID, SELFPAY ==
[2024-02-18 09:10] LABS: Absolute Lymphocyte Count 2.85 X10^3/uL (0.83-4.51); Absolute Neutrophil Count 6.8 X10^3/uL (2.0-7.7); Basophil# 0.06 X10^3/uL; Basophil% 0.6 % (0-1); Hematocrit 43.4 % (37-47); Lymphocyte # 2.85 X10^3/ul (0.83-4.51); Mean Corp Hgb Conc 32.3 g/dL (32-36); Mean Corpuscular Hgb 31.6 pg (27.0-32.0); Mean Platelet Vol. 10.2 fl (6.2-12.0); Monocyte# 0.82 X10^3/uL; Monocyte% 7.8 % (0-10); NRBC Flagged by Analyzer 0 % (0-5); Neutrophil # 6.78 X10^3/uL (2.7-7.7); Neutrophil % 64.3 % (47-70); Platelet Count 363 K/mm3 (150-450); RBC Distribution Width CV 13.4 % (11.6-14.6); RBC Distribution Width SD 48.5 fl (35.1-43.9); Red Blood Count 4.43 M/mm3 (4.2-5.4); White Blood Count 10.5 K/mm3 (4.4-11.0)
[2024-02-18 09:14] LABS: Potassium 4.2 mmol/L (3.5-5.1)
== END ==
LOC: OLS.WHLEAS 05:00
PROVIDERS: PCP Internal Medicine; Visit Provider Internal Medicine
DX: E87.6 Hypokalemia (principal); I10 Essential (primary) hypertension; I25.10 Atherosclerotic heart disease of native coronary artery without angina pectoris
CPT/HCPCS: 36415; 84132; 85025

== ENCOUNTER → 2024-05-17 | Outpatient (REF) | payer MEDICARE, MEDICAID, SELFPAY ==
[2024-05-17 08:52] LABS: Absolute Lymphocyte Count 2.44 X10^3/uL (0.83-4.51); Basophil# 0.07 X10^3/uL; Basophil% 0.6 % (0-1); Eosinophils% 3.7 % (0-5); Hematocrit 45.9 % (37-47); Hemoglobin 14.9 g/dL (12.0-15.0); Lymphocyte # 2.44 X10^3/ul (0.83-4.51); Lymphocyte % 22.4 % (19-41); Mean Corp Hgb Conc 32.5 g/dL (32-36); Mean Corpuscular Hgb 31.3 pg (27.0-32.0); Mean Corpuscular Volume 96.4 fL (81-99); Monocyte# 0.98 X10^3/uL; NRBC Flagged by Analyzer 0 % (0-5); Neutrophil # 6.95 X10^3/uL (2.7-7.7); Neutrophil % 63.7 % (47-70); Platelet Count 386 K/mm3 (150-450); RBC Distribution Width CV 13.2 % (11.6-14.6); RBC Distribution Width SD 47.2 fl (35.1-43.9); Red Blood Count 4.76 M/mm3 (4.2-5.4); White Blood Count 10.9 K/mm3 (4.4-11.0)
[2024-05-17 09:25] LABS: Anion Gap 8 (5-15); BUN 12 mg/dL (7-18); BUN/Creat Ratio 20.3 RATIO (10-20); Calcium,Total 10.3 mg/dL (8.5-10.1); Chloride 103 mmol/L (98-107); Creatinine, Serum 0.59 mg/dL (0.55-1.02); EST Glomerular Filtration Rate 103 mL/min (>60); Est Glom Filt Rate - Afr Amer 125 mL/min (>60); Glucose 108 mg/dL (74-106); Potassium 4.2 mmol/L (3.5-5.1); Sodium Level 139 mmol/L (136-145)
== END ==
LOC: OLS.WHLCAR 05:00
PROVIDERS: PCP Internal Medicine; Visit Provider Internal Medicine
DX: I10 Essential (primary) hypertension (principal); G30.9 Alzheimer's disease, unspecified; F02.818 Dementia in other diseases classified elsewhere, unspecified severity, with other behavioral disturbance; I25.10 Atherosclerotic heart disease of native coronary artery without angina pectoris
CPT/HCPCS: 36415; 80048; 85025

== ENCOUNTER → 2024-05-27 | Outpatient (REF) | payer MEDICARE, MEDICAID, SELFPAY ==
[2024-05-27 07:05] LABS: Mucous, Urine 0 SEEN /hpf (<or=2+)
[2024-05-27 07:06] LABS: Absolute Lymphocyte Count 1.92 X10^3/uL (0.83-4.51); Absolute Neutrophil Count 6.6 X10^3/uL (2.0-7.7); Basophil# 0.07 X10^3/uL; Basophil% 0.7 % (0-1); Eosinophils% 1.1 % (0-5); Hematocrit 46.3 % (37-47); Hemoglobin 14.7 g/dL (12.0-15.0); Lymphocyte # 1.92 X10^3/ul (0.83-4.51); Lymphocyte % 20.2 % (19-41); Mean Corp Hgb Conc 31.7 g/dL (32-36); Mean Corpuscular Hgb 30.9 pg (27.0-32.0); Mean Corpuscular Volume 97.5 fL (81-99); Mean Platelet Vol. 10.9 fl (6.2-12.0); Monocyte# 0.71 X10^3/uL; Monocyte% 7.5 % (0-10); NRBC Flagged by Analyzer 0 % (0-5); Neutrophil # 6.64 X10^3/uL (2.7-7.7); Platelet Count 308 K/mm3 (150-450); RBC Distribution Width CV 13.4 % (11.6-14.6); RBC Distribution Width SD 48.3 fl (35.1-43.9); Red Blood Count 4.75 M/mm3 (4.2-5.4); White Blood Count 9.5 K/mm3 (4.4-11.0)
[2024-05-27 07:27] LABS: ALB/GLOB Ratio 0.9 RATIO (0.9-2.4); AST(SGOT) 19 U/L (15-37); Alanine Aminotransfer ALT/SGPT 9 U/L (13-56); Albumin, Serum 3.1 g/dL (3.2-5.0); Alkaline Phosphatase 221 U/L (45-117); Anion Gap 7 (5-15); BUN 10 mg/dL (7-18); BUN/Creat Ratio 14.2 RATIO (10-20); Calcium,Total 9.7 mg/dL (8.5-10.1); Chloride 105 mmol/L (98-107); EST Glomerular Filtration Rate 84 mL/min (>60); Est Glom Filt Rate - Afr Amer 102 mL/min (>60); Globulin 3.4 g/dL (2.2-4.2); Glucose 132 mg/dL (74-106); Potassium 3.8 mmol/L (3.5-5.1); Protein, Total 6.5 g/dL (6.4-8.2); Sodium Level 138 mmol/L (136-145); T4 Free Direct 1.07 ng/dL (0.76-1.46)
[2024-05-27 07:42] LABS: Color, Urine Yellow (Yellow); Glucose, Dipstick Normal (Normal); Ketone-Dipstick Negative (Negative); Leukocyte Esterase-Dipstick 500 /ul (Negative); Nitrite-Dipstick Positive (Negative); Occult Blood-Urine 10 /ul (Negative); Protein-Dipstick 15 mg/dl (Negative); Urine Bilirubin Dipstick Negative (Negative); Urine Clarity Clear (Clear); Urine Urobilinogen Normal (Normal)
[2024-05-27 07:54] LABS: Red Blood Cells-Urine 0-5 SEEN /hpf (0-5); White Blood Cells 10-25 SEEN /hpf (0-5)
[2024-05-27 07:55] LABS: Bacteria 2+ /hpf (None Seen); Squamous Epithelial Cells - UA 5-10 SEEN /hpf (5-10)
== END ==
LOC: OLS.WHLCAR 05:00
PROVIDERS: PCP Internal Medicine; Visit Provider Internal Medicine
DX: F41.9 Anxiety disorder, unspecified (principal); R39.9 Unspecified symptoms and signs involving the genitourinary system; I10 Essential (primary) hypertension; I25.10 Atherosclerotic heart disease of native coronary artery without angina pectoris; G30.9 Alzheimer's disease, unspecified; F02.811 Dementia in other diseases classified elsewhere, unspecified severity, with agitation
CPT/HCPCS: 36415; 80053; 81001; 84439; 85025; 87077; 87086; 87088; 87186

== ENCOUNTER → 2024-08-02 | Outpatient (REF) | payer MEDICARE, MEDICAID, SELFPAY ==
[2024-08-02 08:06] LABS: Absolute Lymphocyte Count 1.59 X10^3/uL (0.83-4.51); Absolute Neutrophil Count 3.8 X10^3/uL (2.0-7.7); Basophil# 0.04 X10^3/uL; Basophil% 0.6 % (0-1); Eosinophil# 0.17 X10^3/uL; Eosinophils% 2.7 % (0-5); Hematocrit 42.7 % (37-47); Hemoglobin 13.4 g/dL (12.0-15.0); Lymphocyte # 1.59 X10^3/ul (0.83-4.51); Lymphocyte % 25.4 % (19-41); Mean Corp Hgb Conc 31.4 g/dL (32-36); Mean Corpuscular Hgb 30.9 pg (27.0-32.0); Mean Corpuscular Volume 98.4 fL (81-99); Mean Platelet Vol. 10.5 fl (6.2-12.0); Monocyte# 0.65 X10^3/uL; Monocyte% 10.4 % (0-10); NRBC Flagged by Analyzer 0 % (0-5); Neutrophil # 3.78 X10^3/uL (2.7-7.7); Neutrophil % 60.4 % (47-70); Platelet Count 278 K/mm3 (150-450); RBC Distribution Width CV 13.8 % (11.6-14.6); RBC Distribution Width SD 50.2 fl (35.1-43.9); Red Blood Count 4.34 M/mm3 (4.2-5.4); White Blood Count 6.3 K/mm3 (4.4-11.0)
[2024-08-02 08:16] LABS: Anion Gap 5 (5-15); BUN 13 mg/dL (7-18); BUN/Creat Ratio 22.5 RATIO (10-20); Calcium,Total 9.6 mg/dL (8.5-10.1); Chloride 108 mmol/L (98-107); Creatinine, Serum 0.58 mg/dL (0.55-1.02); EST Glomerular Filtration Rate 106 mL/min (>60); Est Glom Filt Rate - Afr Amer 128 mL/min (>60); Glucose 87 mg/dL (74-106); Potassium 3.9 mmol/L (3.5-5.1); Sodium Level 140 mmol/L (136-145)
== END ==
LOC: OLS.WHLCAR 05:00
PROVIDERS: PCP Internal Medicine; Visit Provider Internal Medicine
DX: R53.82 Chronic fatigue, unspecified (principal); G30.9 Alzheimer's disease, unspecified; F02.811 Dementia in other diseases classified elsewhere, unspecified severity, with agitation; I10 Essential (primary) hypertension; I25.10 Atherosclerotic heart disease of native coronary artery without angina pectoris
CPT/HCPCS: 36415; 80048; 85025

== ENCOUNTER → 2024-08-04 | Outpatient (REF) | payer MEDICARE, MEDICAID, SELFPAY ==
[2024-08-04 09:00] LABS: Valproic Acid (Depakene) Level 28 ug/mL (50-100)
== END ==
LOC: OLS.WHLCAR 05:00
PROVIDERS: PCP Internal Medicine; Visit Provider Internal Medicine
DX: G30.9 Alzheimer's disease, unspecified (principal); F02.811 Dementia in other diseases classified elsewhere, unspecified severity, with agitation; I10 Essential (primary) hypertension; I25.10 Atherosclerotic heart disease of native coronary artery without angina pectoris
CPT/HCPCS: 36415; 80164

== ENCOUNTER → 2024-08-16 | Outpatient (REF) | payer MEDICARE, MEDICAID, SELFPAY ==
[2024-08-16 07:24] LABS: Absolute Lymphocyte Count 1.61 X10^3/uL (0.83-4.51); Absolute Neutrophil Count 3.4 X10^3/uL (2.0-7.7); Basophil# 0.04 X10^3/uL; Basophil% 0.7 % (0-1); Eosinophil# 0.18 X10^3/uL; Eosinophils% 3.1 % (0-5); Hematocrit 41.2 % (37-47); Hemoglobin 12.9 g/dL (12.0-15.0); Lymphocyte # 1.61 X10^3/ul (0.83-4.51); Lymphocyte % 27.4 % (19-41); Mean Corp Hgb Conc 31.3 g/dL (32-36); Mean Platelet Vol. 10.8 fl (6.2-12.0); Monocyte# 0.62 X10^3/uL; Monocyte% 10.5 % (0-10); NRBC Flagged by Analyzer 0 % (0-5); Neutrophil # 3.41 X10^3/uL (2.7-7.7); Platelet Count 242 K/mm3 (150-450); RBC Distribution Width SD 50.8 fl (35.1-43.9); Red Blood Count 4.16 M/mm3 (4.2-5.4); White Blood Count 5.9 K/mm3 (4.4-11.0)
[2024-08-16 08:01] LABS: Anion Gap 4 (5-15); BUN 19 mg/dL (7-18); BUN/Creat Ratio 35.8 RATIO (10-20); Calcium,Total 8.9 mg/dL (8.5-10.1); Chloride 110 mmol/L (98-107); Creatinine, Serum 0.53 mg/dL (0.55-1.02); EST Glomerular Filtration Rate 116 mL/min (>60); Est Glom Filt Rate - Afr Amer 141 mL/min (>60); Glucose 85 mg/dL (74-106); Potassium 3.9 mmol/L (3.5-5.1); Sodium Level 142 mmol/L (136-145)
== END ==
LOC: OLS.WHLCAR 05:00
PROVIDERS: PCP Internal Medicine; Visit Provider Internal Medicine
DX: R53.82 Chronic fatigue, unspecified (principal); G30.9 Alzheimer's disease, unspecified; F02.811 Dementia in other diseases classified elsewhere, unspecified severity, with agitation; I10 Essential (primary) hypertension; I25.10 Atherosclerotic heart disease of native coronary artery without angina pectoris
CPT/HCPCS: 36415; 80048; 85025

== ENCOUNTER → 2024-09-16 05:00 | Outpatient (REF) | payer MEDICARE, MEDICAID, SELFPAY ==
[2024-09-16 09:30] LABS: Absolute Lymphocyte Count 1.59 X10^3/uL (0.83-4.51); Absolute Neutrophil Count 4.4 X10^3/uL (2.0-7.7); Basophil# 0.05 X10^3/uL; Basophil% 0.7 % (0-1); Eosinophil# 0.21 X10^3/uL; Hematocrit 38.9 % (37-47); Hemoglobin 12.4 g/dL (12.0-15.0); Lymphocyte # 1.59 X10^3/ul (0.83-4.51); Lymphocyte % 23.1 % (19-41); Mean Corp Hgb Conc 31.9 g/dL (32-36); Mean Corpuscular Hgb 31.5 pg (27.0-32.0); Mean Corpuscular Volume 98.7 fL (81-99); Mean Platelet Vol. 10.6 fl (6.2-12.0); Monocyte# 0.66 X10^3/uL; Monocyte% 9.6 % (0-10); NRBC Flagged by Analyzer 0 % (0-5); Neutrophil # 4.36 X10^3/uL (2.7-7.7); Neutrophil % 63.3 % (47-70); Platelet Count 241 K/mm3 (150-450); RBC Distribution Width CV 13.2 % (11.6-14.6); RBC Distribution Width SD 48.3 fl (35.1-43.9); Red Blood Count 3.94 M/mm3 (4.2-5.4); White Blood Count 6.9 K/mm3 (4.4-11.0)
[2024-09-16 09:40] LABS: Anion Gap 5 (5-15); BUN 19 mg/dL (7-18); BUN/Creat Ratio 40.5 RATIO (10-20); Calcium,Total 8.8 mg/dL (8.5-10.1); Chloride 106 mmol/L (98-107); Creatinine, Serum 0.47 mg/dL (0.55-1.02); EST Glomerular Filtration Rate 134 mL/min (>60); Est Glom Filt Rate - Afr Amer 162 mL/min (>60); Glucose 89 mg/dL (74-106); Potassium 3.8 mmol/L (3.5-5.1); Sodium Level 139 mmol/L (136-145)
== END ==
LOC: OLS.WHLCAR 05:00
PROVIDERS: PCP Internal Medicine; Visit Provider Internal Medicine
DX: R53.82 Chronic fatigue, unspecified (principal); I10 Essential (primary) hypertension; G30.9 Alzheimer's disease, unspecified; F02.811 Dementia in other diseases classified elsewhere, unspecified severity, with agitation; I25.10 Atherosclerotic heart disease of native coronary artery without angina pectoris
CPT/HCPCS: 36415; 80048; 85025

== ENCOUNTER → 2024-10-14 01:00 | Outpatient (REF) | payer MEDICARE, MEDICAID, SELFPAY ==
[2024-10-14 06:48] LABS: Mucous, Urine 0 SEEN /hpf (<or=2+); Red Blood Cells-Urine 0 SEEN /hpf (0-5); Squamous Epithelial Cells - UA 0 SEEN /hpf (5-10); White Blood Cells 0 SEEN /hpf (0-5)
[2024-10-14 07:05] LABS: Color, Urine Yellow (Yellow); Glucose, Dipstick Normal (Normal); Ketone-Dipstick Negative (Negative); Leukocyte Esterase-Dipstick 25 /ul (Negative); Nitrite-Dipstick Positive (Negative); Occult Blood-Urine Negative /ul (Negative); Protein-Dipstick 15 mg/dl (Negative); Specific Gravity, Urine 1.015 (1.002-1.030); Urine Bilirubin Dipstick Negative (Negative); Urine Clarity Sl. Cloudy (Clear); Urine Urobilinogen Normal (Normal)
[2024-10-14 08:59] LABS: Bacteria 1+ /hpf (None Seen)
[2024-10-14 09:00] LABS: Triple Phosphate Crystals Ur 1+ /hpf (<or=1+)
== END ==
LOC: OLS.WHLCAR 01:00
PROVIDERS: PCP Internal Medicine; Visit Provider Internal Medicine
DX: N39.0 Urinary tract infection, site not specified (principal)
CPT/HCPCS: 81001; 87077; 87086; 87088; 87186

== ENCOUNTER → 2024-10-17 05:00 | Outpatient (REF) | payer MEDICARE, MEDICAID, SELFPAY ==
[2024-10-17 08:56] LABS: Absolute Lymphocyte Count 1.81 X10^3/uL (0.83-4.51); Absolute Neutrophil Count 3.3 X10^3/uL (2.0-7.7); Basophil# 0.05 X10^3/uL; Basophil% 0.7 % (0-1); Eosinophils% 14.6 % (0-5); Hematocrit 41.4 % (37-47); Hemoglobin 13.5 g/dL (12.0-15.0); Lymphocyte # 1.81 X10^3/ul (0.83-4.51); Lymphocyte % 26.5 % (19-41); Mean Corp Hgb Conc 32.6 g/dL (32-36); Mean Corpuscular Hgb 32.1 pg (27.0-32.0); Mean Corpuscular Volume 98.6 fL (81-99); Mean Platelet Vol. 10.6 fl (6.2-12.0); Monocyte# 0.65 X10^3/uL; Monocyte% 9.5 % (0-10); NRBC Flagged by Analyzer 0 % (0-5); Neutrophil % 48.3 % (47-70); Platelet Count 232 K/mm3 (150-450); RBC Distribution Width SD 46.3 fl (35.1-43.9); White Blood Count 6.8 K/mm3 (4.4-11.0)
[2024-10-17 09:04] LABS: AST(SGOT) 12 U/L (15-37); Alanine Aminotransfer ALT/SGPT 19 U/L (13-56); Albumin, Serum 3.1 g/dL (3.2-5.0); Alkaline Phosphatase 108 U/L (45-117); Anion Gap 5 (5-15); BUN 30 mg/dL (7-18); BUN/Creat Ratio 49.3 RATIO (10-20); Bilirubin, Direct 0.09 mg/dL (0.00-0.30); Calcium,Total 9.1 mg/dL (8.5-10.1); Chloride 106 mmol/L (98-107); Creatinine, Serum 0.61 mg/dL (0.55-1.02); EST Glomerular Filtration Rate 99 mL/min (>60); Est Glom Filt Rate - Afr Amer 120 mL/min (>60); Globulin 3.2 g/dL (2.2-4.2); Glucose 86 mg/dL (74-106); Protein, Total 6.3 g/dL (6.4-8.2); Sodium Level 140 mmol/L (136-145)
== END ==
LOC: OLS.WHLCAR 05:00
PROVIDERS: PCP Internal Medicine; Visit Provider Internal Medicine
DX: R53.82 Chronic fatigue, unspecified (principal); G30.9 Alzheimer's disease, unspecified; F02.811 Dementia in other diseases classified elsewhere, unspecified severity, with agitation; I10 Essential (primary) hypertension; I25.10 Atherosclerotic heart disease of native coronary artery without angina pectoris
CPT/HCPCS: 36415; 80048; 80076; 85025

== ENCOUNTER → 2024-11-14 | Outpatient (REF) | payer MEDICARE, MEDICAID, SELFPAY ==
[2024-11-14 07:56] LABS: Absolute Lymphocyte Count 2.15 X10^3/uL (0.83-4.51); Absolute Neutrophil Count 4.8 X10^3/uL (2.0-7.7); Basophil# 0.08 X10^3/uL; Eosinophil# 0.66 X10^3/uL; Eosinophils% 7.9 % (0-5); Hematocrit 46.9 % (37-47); Lymphocyte # 2.15 X10^3/ul (0.83-4.51); Lymphocyte % 25.7 % (19-41); Mean Corpuscular Volume 96.9 fL (81-99); Mean Platelet Vol. 10.4 fl (6.2-12.0); Monocyte# 0.66 X10^3/uL; Monocyte% 7.9 % (0-10); NRBC Flagged by Analyzer 0 % (0-5); Neutrophil # 4.76 X10^3/uL (2.7-7.7); Platelet Count 269 K/mm3 (150-450); RBC Distribution Width CV 12.9 % (11.6-14.6); RBC Distribution Width SD 46.1 fl (35.1-43.9); Red Blood Count 4.84 M/mm3 (4.2-5.4); White Blood Count 8.4 K/mm3 (4.4-11.0)
[2024-11-14 08:57] LABS: Anion Gap 12 (5-15); BUN 24 mg/dL (4-19); BUN/Creat Ratio 36.8 RATIO (10-20); Calcium 9.4 mg/dL (7.6-11.0); Carbon Dioxide 27.6 mmol/L (22.0-29.0); Chloride 101 mmol/L (96-108); Creatinine, Serum 0.65 mg/dL (0.70-1.20); EST Glomerular Filtration Rate 86 (>60); Glucose 97 mg/dL (70-99); Potassium 4.3 mmol/L (3.3-5.1); Sodium Level 141 mmol/L (133-145)
== END ==
LOC: OLS.WHLCAR 05:00
PROVIDERS: PCP Internal Medicine; Visit Provider Internal Medicine
DX: R53.82 Chronic fatigue, unspecified (principal); G30.9 Alzheimer's disease, unspecified; I10 Essential (primary) hypertension; I25.10 Atherosclerotic heart disease of native coronary artery without angina pectoris
CPT/HCPCS: 36415; 80048; 85025

== ENCOUNTER → 2024-12-14 | Outpatient (REF) | payer MEDICARE, MEDICAID, SELFPAY ==
[2024-12-14 09:31] LABS: Absolute Neutrophil Count 4.2 X10^3/uL (2.0-7.7); Basophil# 0.08 X10^3/uL; Eosinophil# 0.36 X10^3/uL; Eosinophils% 4.4 % (0-5); Hematocrit 46.6 % (37-47); Hemoglobin 15.2 g/dL (12.0-15.0); Mean Corp Hgb Conc 32.6 g/dL (32-36); Mean Corpuscular Hgb 30.9 pg (27.0-32.0); Mean Corpuscular Volume 94.7 fL (81-99); Mean Platelet Vol. 10.6 fl (6.2-12.0); Monocyte# 0.79 X10^3/uL; Monocyte% 9.7 % (0-10); NRBC Flagged by Analyzer 0 % (0-5); Neutrophil # 4.21 X10^3/uL (2.7-7.7); Neutrophil % 51.4 % (47-70); Platelet Count 268 K/mm3 (150-450); RBC Distribution Width CV 13.2 % (11.6-14.6); RBC Distribution Width SD 45.8 fl (35.1-43.9); Red Blood Count 4.92 M/mm3 (4.2-5.4); White Blood Count 8.2 K/mm3 (4.4-11.0)
[2024-12-14 09:47] LABS: Anion Gap 12 (5-15); BUN 23 mg/dL (4-19); Calcium,Total 9.7 mg/dL (7.6-11.0); Carbon Dioxide 25.1 mmol/L (21.0-32.0); Chloride 103 mmol/L (98-108); Creatinine, Serum 0.76 mg/dL (0.70-1.20); EST Glomerular Filtration Rate 76 (>60); Glucose 105 mg/dL (70-99); Potassium 4.3 mmol/L (3.3-5.1); Sodium Level 141 mmol/L (133-145)
== END ==
LOC: OLS.WHLCAR 05:00
PROVIDERS: PCP Internal Medicine; Visit Provider Internal Medicine
DX: R53.82 Chronic fatigue, unspecified (principal); G30.9 Alzheimer's disease, unspecified; I10 Essential (primary) hypertension; I25.10 Atherosclerotic heart disease of native coronary artery without angina pectoris
CPT/HCPCS: 36415; 80048; 85025

== ENCOUNTER → 2025-01-12 | Outpatient (REF) | payer MEDICARE, MEDICAID, SELFPAY ==
[2025-01-12 08:42] LABS: Absolute Lymphocyte Count 1.66 X10^3/uL (0.83-4.51); Absolute Neutrophil Count 3.2 X10^3/uL (2.0-7.7); Basophil# 0.05 X10^3/uL; Basophil% 0.8 % (0-1); Eosinophil# 0.43 X10^3/uL; Eosinophils% 7.2 % (0-5); Hematocrit 40.4 % (37-47); Hemoglobin 13.3 g/dL (12.0-15.0); Lymphocyte # 1.66 X10^3/ul (0.83-4.51); Lymphocyte % 27.6 % (19-41); Mean Corp Hgb Conc 32.9 g/dL (32-36); Mean Corpuscular Volume 97.1 fL (81-99); Mean Platelet Vol. 10.7 fl (6.2-12.0); Monocyte# 0.65 X10^3/uL; Monocyte% 10.8 % (0-10); NRBC Flagged by Analyzer 0 % (0-5); Neutrophil % 53.3 % (47-70); Platelet Count 233 K/mm3 (150-450); RBC Distribution Width CV 13.5 % (11.6-14.6); RBC Distribution Width SD 47.9 fl (35.1-43.9); Red Blood Count 4.16 M/mm3 (4.2-5.4)
[2025-01-12 08:55] LABS: AST(SGOT) 16 U/L (<=31); Alanine Aminotransfer ALT/SGPT 12 U/L (<=34); Albumin, Serum 3.5 g/dL (3.4-4.8); Alkaline Phosphatase 110 U/L (35-104); Anion Gap 13 (5-15); BUN 26 mg/dL (4-19); BUN/Creat Ratio 36.9 RATIO (10-20); Bilirubin, Direct 0.11 mg/dL (0.00-0.30); Carbon Dioxide 22.3 mmol/L (21.0-32.0); Chloride 106 mmol/L (98-108); Creatinine, Serum 0.71 mg/dL (0.70-1.20); EST Glomerular Filtration Rate 84 (>60); Globulin 2.2 g/dL (2.2-4.2); Glucose 95 mg/dL (70-99); Potassium 4.4 mmol/L (3.3-5.1); Protein, Total 5.7 g/dL (5.9-8.4); Sodium Level 142 mmol/L (133-145); Total Bilirubin 0.24 mg/dL (0.00-1.30)
== END ==
LOC: OLS.WHLCAR 05:00
PROVIDERS: PCP Internal Medicine; Visit Provider Internal Medicine
DX: R53.82 Chronic fatigue, unspecified (principal); G30.9 Alzheimer's disease, unspecified; F02.811 Dementia in other diseases classified elsewhere, unspecified severity, with agitation; I10 Essential (primary) hypertension; I25.10 Atherosclerotic heart disease of native coronary artery without angina pectoris
CPT/HCPCS: 36415; 80048; 80076; 85025

== ENCOUNTER → 2025-01-14 | Outpatient (REF) | payer MEDICARE, MEDICAID, SELFPAY ==
[2025-01-14 08:41] LABS: Color, Urine Yellow (Yellow); Glucose, Dipstick Normal (Normal); Ketone-Dipstick Negative (Negative); Leukocyte Esterase-Dipstick 500 /ul (Negative); Nitrite-Dipstick Negative (Negative); Occult Blood-Urine 50 /ul (Negative); Protein-Dipstick 30 mg/dl (Negative); Urine Bilirubin Dipstick Negative (Negative); Urine Clarity Cloudy (Clear); Urine Urobilinogen Normal (Normal)
== END ==
LOC: OLS.WHLCAR 08:25
PROVIDERS: PCP Internal Medicine; Visit Provider Internal Medicine
DX: N39.0 Urinary tract infection, site not specified (principal)
CPT/HCPCS: 81002; 87077; 87086; 87088; 87186

== ENCOUNTER → 2025-01-18 | Outpatient (REF) | payer MEDICARE, MEDICAID, SELFPAY ==
[2025-01-18 09:20] LABS: Absolute Lymphocyte Count 1.51 X10^3/uL (0.83-4.51); Absolute Neutrophil Count 3.9 X10^3/uL (2.0-7.7); Basophil# 0.04 X10^3/uL; Basophil% 0.6 % (0-1); Eosinophil# 0.39 X10^3/uL; Eosinophils% 6.1 % (0-5); Hematocrit 42.1 % (37-47); Hemoglobin 14.2 g/dL (12.0-15.0); Lymphocyte # 1.51 X10^3/ul (0.83-4.51); Lymphocyte % 23.4 % (19-41); Mean Corp Hgb Conc 33.7 g/dL (32-36); Mean Corpuscular Hgb 31.8 pg (27.0-32.0); Mean Corpuscular Volume 94.4 fL (81-99); Mean Platelet Vol. 11.6 fl (6.2-12.0); Monocyte% 9.3 % (0-10); NRBC Flagged by Analyzer 0 % (0-5); Neutrophil # 3.87 X10^3/uL (2.7-7.7); Neutrophil % 60.1 % (47-70); POSITIVE COUNT YES; RBC Distribution Width CV 13.4 % (11.6-14.6); RBC Distribution Width SD 46.6 fl (35.1-43.9); Red Blood Count 4.46 M/mm3 (4.2-5.4); White Blood Count 6.4 K/mm3 (4.4-11.0)
[2025-01-18 09:34] LABS: AST(SGOT) 19 U/L (<=31); Alanine Aminotransfer ALT/SGPT 14 U/L (<=34); Albumin, Serum 3.7 g/dL (3.4-4.8); Alkaline Phosphatase 106 U/L (35-104); Anion Gap 12 (5-15); BUN 27 mg/dL (4-19); BUN/Creat Ratio 36.2 RATIO (10-20); Bilirubin, Direct 0.11 mg/dL (0.00-0.30); Calcium,Total 9.1 mg/dL (7.6-11.0); Carbon Dioxide 22.7 mmol/L (21.0-32.0); Chloride 107 mmol/L (98-108); Creatinine, Serum 0.73 mg/dL (0.70-1.20); EST Glomerular Filtration Rate 80 (>60); Globulin 2.5 g/dL (2.2-4.2); Glucose 84 mg/dL (70-99); Potassium 5.6 mmol/L (3.3-5.1); Protein, Total 6.1 g/dL (5.9-8.4); Sodium Level 141 mmol/L (133-145); Total Bilirubin 0.25 mg/dL (0.00-1.30)
[2025-01-18 10:51] LABS: Differential Indicated SCAN CRITERIA MET; Platelet Estimate SLT DEC (ADEQ)
== END ==
LOC: OLS.WHLCAR 05:00
PROVIDERS: PCP Internal Medicine; Visit Provider Internal Medicine
DX: G30.9 Alzheimer's disease, unspecified (principal); F02.811 Dementia in other diseases classified elsewhere, unspecified severity, with agitation; I10 Essential (primary) hypertension; I25.10 Atherosclerotic heart disease of native coronary artery without angina pectoris; R53.82 Chronic fatigue, unspecified
CPT/HCPCS: 36415; 80048; 80076; 85025

== ENCOUNTER → 2025-01-23 | Outpatient (REF) | payer MEDICARE, MEDICAID, SELFPAY ==
[2025-01-23 10:15] LABS: Potassium 3.8 mmol/L (3.3-5.1)
== END ==
LOC: OLS.WHLCAR 05:00
PROVIDERS: PCP Internal Medicine; Visit Provider Nurse Practitioner Adult Health
DX: E87.6 Hypokalemia (principal)
CPT/HCPCS: 36415; 84132

== ENCOUNTER → 2025-02-13 05:00 | Outpatient (REF) | payer MEDICARE, MEDICAID, SELFPAY ==
[2025-02-13 08:02] LABS: Absolute Lymphocyte Count 1.82 X10^3/uL (0.83-4.51); Absolute Neutrophil Count 3.5 X10^3/uL (2.0-7.7); Basophil# 0.04 X10^3/uL; Basophil% 0.6 % (0-1); Eosinophil# 0.23 X10^3/uL; Eosinophils% 3.7 % (0-5); Hematocrit 43.2 % (37-47); Hemoglobin 13.9 g/dL (12.0-15.0); Lymphocyte # 1.82 X10^3/ul (0.83-4.51); Lymphocyte % 29.1 % (19-41); Mean Corp Hgb Conc 32.2 g/dL (32-36); Mean Corpuscular Hgb 31.4 pg (27.0-32.0); Mean Corpuscular Volume 97.7 fL (81-99); Mean Platelet Vol. 10.3 fl (6.2-12.0); Monocyte# 0.67 X10^3/uL; Monocyte% 10.7 % (0-10); NRBC Flagged by Analyzer 0 % (0-5); Neutrophil # 3.48 X10^3/uL (2.7-7.7); Neutrophil % 55.6 % (47-70); Platelet Count 231 K/mm3 (150-450); RBC Distribution Width CV 12.9 % (11.6-14.6); RBC Distribution Width SD 46.5 fl (35.1-43.9); Red Blood Count 4.42 M/mm3 (4.2-5.4); White Blood Count 6.3 K/mm3 (4.4-11.0)
[2025-02-13 08:20] LABS: Anion Gap 10 (5-15); BUN 20 mg/dL (4-19); BUN/Creat Ratio 32.3 RATIO (10-20); Calcium,Total 9.3 mg/dL (7.6-11.0); Carbon Dioxide 28.1 mmol/L (21.0-32.0); Chloride 101 mmol/L (98-108); Creatinine, Serum 0.62 mg/dL (0.70-1.20); EST Glomerular Filtration Rate 87 (>60); Glucose 88 mg/dL (70-99); Sodium Level 140 mmol/L (133-145)
== END ==
LOC: OLS.WHLCAR 05:00
PROVIDERS: PCP Internal Medicine; Visit Provider Internal Medicine
DX: I10 Essential (primary) hypertension (principal); I25.10 Atherosclerotic heart disease of native coronary artery without angina pectoris; R53.82 Chronic fatigue, unspecified; G30.9 Alzheimer's disease, unspecified; F02.811 Dementia in other diseases classified elsewhere, unspecified severity, with agitation
CPT/HCPCS: 36415; 80048; 85025

== ENCOUNTER → 2025-02-27 | Outpatient (REF) | payer MEDICARE, MEDICAID, SELFPAY ==
--- OUTSIDE RECORDS SUMMARY | 2025-02-27 04:20 | XMS RPT_ITS | CCD ---
Author Organization [facility] Inform ion Partnership [facility] Care Team Providers Care Retail Director Name Role Phone Hung Davison Unavailable Unavailable NicoleMirella jiang Unavailable Armando Gutierrez Unavailable [facility], [facility] Unavailable Art Curry Unavailable Alba Sargent Unavailable Amita Antoine Unavailable Dick Morris Unavailable [facility] Unavailable Kya Valdivia Unavailable Joe Skinner Unavailable Alyson Dixon Unavailable Unavailable Unavailable Unavailable TRUDY Chambers Attending Provider Dr. Cl Tsang Primary Care Provider MD Cl Tsang Referring Provider Unavailable Dr. Thom Montiel Attending Provider [phone] TRUDY Chambers Referring Provider [phone] Esha RESIDENTIAL CAREGIVER, RESIDENTIAL CAREGIVER-C Zeina Attending Provider Dr. Cl Williamson Primary Care Provider Dr. Cl Tsang Primary Care Provider Esha RESIDENTIAL CAREGIVER, RESIDENTIAL CAREGIVER-C Zeina Attending Provider Dr. Cl Williamson Primary Care Provider Esha RESIDENTIAL CAREGIVER, RESIDENTIAL CAREGIVER-C Zeina Attending Provider Dr. Cl Williamson Referring Provider TRUDY Chambers Attending Provider [phone] Dr. Thom Montiel Attending Provider Dr. Cl Tsang Primary Care Provider Dr. Cl Tsang Referring Provider TRUDY Chambers Attending Provider [phone] Dr. Thom Montiel Attending Provider Esha RESIDENTIAL CAREGIVER, RESIDENTIAL CAREGIVER-C Zeina Attending Provider Dr. Tomas Humphrey Attending Provider [phone] Dr. Yesika Faust Attending Provider [phone] Dr. Cl Tsang Primary Care Provider Dr. Cl Tsang Referring Provider Dr. Thom Montiel Attending Provider [phone] Cl Tsang Primary Care Provider Esha RESIDENTIAL CAREGIVER, RESIDENTIAL CAREGIVER-Lio Pastrana Attending Provider Dr. Yesika Reed Attending Provider [phone] Dr. Cl Tsang Referring Provider TRUDY Chambers Attending Provider [phone] Dr. Cl Tsang Primary Care Provider Dr. Cl Tsang Referring Provider TRUDY Chambers Attending Provider [phone] Dr. Thom Montiel Attending Provider [phone] Esha RESIDENTIAL CAREGIVER, RESIDENTIAL CAREGIVER-C Zeina Attending Provider Dr. Yesika Reed Attending Provider [phone] Dr. Cl Tsang Primary Care Provider Dr. Yesika Faust Attending Provider [phone] TRUDY Parada Attending Provider [phone] Dr. Cl Tsang Primary Care Provider Dr. Yesika Faust Attending Provider [phone] KINDRA Shaikh-Lio Morales Attending Provider [phone] Christianne GE, Dr. Napoles Primary Care Provider Christianne GE, Yesika Attending Provider Unavailchristian Faust MD, Dr. Napoles Attending Provider [phone] Miguel Parada Attending Provider [phone] Christianne GE, Dr. Napoles Primary Care Provider Yesika Faust MD Attending Provider Unavailchristian Faust MD, Dr. Napoles Primary Care Provider Christianne GE, Yesika Attending Provider Unavailchristian Faust MD, Dr. Napoles Attending Provider [phone] Esha RESIDENTIAL CAREGIVER-C, Zeina Attending Provider [phone] Oleghe, Efewongbe Primary Care Unavailable Esha RESIDENTIAL CAREGIVERZeina Attending Unavailable Oleghe OLS, Efewongbe Attending Unavailabl e Oleghe, Efewongbe Primary Care Unavailable Oleghe OLS, Efewongbe Attending Unavailabl e Oleghe, Efewongbe Primary Care Unavailable [place] RESIDENTIAL CAREGIVERZeina Attending Unavailable Oleghe, Efewongbe Primary Care Unavailable Oleghe OLS, Efewongbe Attending Unavailabl e Oleghe, Efewongbe Primary Care Unavailable Oleghe OLS, Efewongbe Attending Unavailabl e Oleghe, Efewongbe Primary Care Unavailable Oleghe OLS, Efewongbe Attending Unavailabl e Oleghe, Efewongbe Primary Care Unavailable Oleghe, Efewongbe Primary Care Unavailable Oleghe OLS, Efewongbe Attending Unavailabl e Oleghe, Efewongbe Primary Care Unavailable [place] CINTHIA Zeina Attending Unavailable Oleghe, Efewongbe Primary Care Unavailable [place] OLS, Zeina Attending Unavailable Oleghe, Efewongbe Attending Unavailable Oleghe, Efewongbe Primary Care Unavailable Carmen Shakih Attending Unavailable Oleghe, Efewongbe Primary Care Unavailable [place] RESIDENTIAL CAREGIVERZeina Attending Unavailable Oleghe, Efewongbe Primary Care Unavailable Oleghe, Efewongbe Attending Unavailable Oleghe, Efewongbe Primary Care Unavailable Oleghe, Efewongbe Primary Care Unavailable [place] RESIDENTIAL CAREGIVER, Zeina Attending Unavailable Oleghe OLS, Efewongbe Attending Unavailabl e Oleghe, Efewongbe Primary Care Unavailable Oleghe OLS, Efewongbe Attending Unavailabl e Oleghe, Efewongbe Primary Care Unavailable Oleghe, Efewongbe Primary Care Unavailable Oleghe OLS, Efewongbe Attending Unavailabl e Oleghe OLS, Efewongbe Attending Unavailabl e Oleghe, Efewongbe Primary Care Unavailable Oleghe, Efewongbe Primary Care Unavailable Miguel Parada Attending Unavailable Oleghe, Efewongbe Attending Unavailable Oleghe, Efewongbe Primary Care Unavailable Oleghe, Efewongbe Primary Care Unavailable Miguel Parada Attending Unavailable Oleghe, Efewongbe Primary Care Unavailable [place] RESIDENTIAL CAREGIVER, Zeina Attending Unavailable Oleghe, Efewongbe Primary Care Unavailable Oleghe OLS, Efewongbe Attending Unavailabl e Oleghe, Efewongbe Primary Care Unavailable [place] RESIDENTIAL CAREGIVER, Zeina Attending Unavailable Oleghe, Efewongbe Primary Care Unavailable Oleghe OLS, Efewongbe Attending Unavailabl e Oleghe, Efewongbe Attending Unavailable Oleghe, Efewongbe Primary Care Unavailable [place] RESIDENTIAL CAREGIVER, Zeina Attending Unavailable Oleghe, Efewongbe Primary Care Unavailable Oleghe OLS, Efewongbe Attending Unavailabl e Oleghe, Efewongbe Primary Care Unavailable Oleghe, Efewongbe Primary Care Unavailable Oleghe OLS, Efewongbe Attending Unavailabl e Allergies Allergy Classification Reported Allergen(s) Allergy Type Date of Onset Reaction(s) Facility (2 sources) acetaminophen / HYDROcodone; Translations: [VICODIN] allergy to substance 05-08-20 11 [facility] Work Phone: (14 sources) HYDROcodone; Translations: [HYDROCODONE] allergy to substance 12-30-19 12 Other [facility] Work Phone: (1 source) Sulfonamides (Antibiotic) drug allergy [facility] Work Phone: (18 sources) Acetaminophen / HYDROcodone; Translations: [VICODIN, 5-500MG (Oral Tablet)] Drug Allergy [facility] Work Phone: (18 sources) Sulfonamides (Antibiotic); Translations: [Sulfa Drugs] allergy to substance [facility] Work Phone: (1 source) allergy to substance [facility] Work Phone: (1 source) allergy to substance [facility] Work Phone: (1 source) allergy to substance [facility] Work Phone: (16 sources) celecoxib Drug Allergy [facility] Work Phone: (11 sources) Acetaminophen Drug Allergy 09-01-20 Other [facility] (11 sources) Sulfamethoxazole Drug Allergy 09-01-20 [facility] (1 source) Acetaminophen Drug Allergy 02-07-20 24 [facility] Repository (1 source) Sulfamethoxazole Drug Allergy 02-07-20 24 [facility] Repository Medications Current Medications Medication Drug Class(es) Dates Sig (Normalized) Sig (Original) acetaminophen 500 mg oral tablet (12 sources) Start: 02-07-2024 take 2 tablets by mouth three times daily Acetaminophen 500 mg tablet Active 1000 mg PO THREE TIMES A DAY February 07, 2024 12:00am Start: 04-09-2023 take 2 capsules by m outh every four hours as needed for pain Acetaminophen 325 mg capsule Active 650 mg PO Q4H as needed for fever or pain April 09, 2023 12:00am Start: 04-09-2023 take 325 mg by mouth once Acet aminophen Active 325 MG PO ONCE April 09, 2023 12:00am aspirin 81 mg delayed release oral tablet (20 sources) Nonsteroidal Anti-inflammatory Drug Start: 04-10-2014 take 1 tablet by mouth once daily Aspirin 81 MG tablet Active 81 mg PO DAILY@0800 July 25, 2014 1:00am Start: 12-27-2013 End: 01-26-2014 take 1 tablet by mouth once daily at mealtime ASPIRIN EC, 81MG (Oral Tablet Delayed Release) [address] qd with food for 30 days Refills: 0 Ordered: 27-Dec-2013 Mirella Mccracken DO, DO, Kathleen Start : 27-Dec-2013 End : 26-Jan-2014 Inactive Start: 04-27-2013 End: 08-08-2013 take 1 tablet by mouth once daily ASPIRIN 81 MG TABS One tablet by mouth daily ASPIRIN [id number] Kaelyn Ellis RN Start: 11-12-2011 End: 11-12-2011 ASPIRIN LOW DOSE, 81MG (Oral Tablet Delayed Release) [address] qd for 0 days Quantity: 30 {Tablet_DR} Refills: 0 Ordered: 12-Nov-2011 Mirella Mccracken DO, DO, Kathleen Start : 12-Nov-2011 End : 12-Nov-2011 Discontinued End: 04-12-2012 take 1 tablet by mouth once daily ASPIRIN EC 81 MG TBEC One tablet by mouth daily ASPIRIN [id number] Jose Vargas MD cloNIDine hydrochloride 0.1 mg oral tablet (8 sources) Central alpha-2 Adrenergic Agonist Start: 04-09-2023 take 1 tablet by mouth every two hours as needed Clonidine Hcl 0.1 mg tablet Active 0.1 mg PO Q2H as needed for hypertensive emergency April 09, 2023 12:00am If SBP >190 or DBP >110 may give 0.1mg PO, if after 2 hours BP still above parameters, may give another 0.1mg PO. diclofenac sodium 0.01 mg/mg topical gel (14 sources) Nonsteroidal Anti-inflammatory Drug Start: 09-30-2021 apply 4 g topically twice daily Diclofenac Sodium 1 % gel Active 4 g TOPICAL TWICE A DAY September 30, 2021 1:00am apply to single elbow, wrist or hand; for hand includes palm/fingers/back of hand Start: 09-30-2021 apply 2 g topically once Diclo fenac Sodium Active 2 GM TOPICAL ONCE September 30, 2021 1:00am apply to single elbow, wrist or hand; for hand includes palm/fingers/back of hand docusate sodium 50 mg / sennosides, [facility] 8.6 mg oral tablet (4 sources) Start: 02-07-2024 Sennosides-Doc usate Sodium (Senexon-S) 8.6-50 mg tablet Active 2 NMA PO AT BEDTIME February 07, 2024 12:00am donepezil hydrochloride 10 mg oral tablet (12 sources) Start: 02-07-2024 take 1 tablet by mouth at bedtime Donepezil 10 mg tablet Active 10 mg PO AT BEDTIME February 07, 2024 12:00am Start: 04-09-2023 End: 02-07-2024 take 1 tablet by mouth at bedtime Donepezil 5 mg tablet Discontinued 5 mg PO AT BEDTIME April 09, 2023 12:00am February 07, 2024 3:28am DULoxetine 30 mg delayed release oral capsule (20 sources) Serotonin and Norepinephrine Reuptake Inhibitor Start: 02-07-2024 take 1 capsule by mouth at bedtime Duloxetine 30 mg capsule,delayed release(DR/EC) Active 30 mg PO AT BEDTIME February 07, 2024 12:00am Start: 02-07-2024 take 1 capsule by [facility] once daily Duloxetine 60 mg capsule,delayed release(DR/EC) Active 60 mg PO DAILY February 07, 2024 12:00am Start: 12-01-2013 End: 12-01-2013 CYMBALTA, 30MG (Oral Capsule Delayed Release Particles) [address] Part qd for 0 days Quantity: 30 {Capsule} Refills: 3 Ordered: 01-Dec-2013 Mirella Mccracken DO, DO, Kathleen Start : 01-Dec-2013 End : 01-Dec-2013 Discontinued Comments: substitute generic please Start: 08-08-2013 End: 04-10-2014 take 1 tablet by mouth once daily CYMBALTA 20 MG CPEP One tablet by mouth daily DULOXETINE HCL [id number] Jose Vargas MD Comment on above: substitute generic p lease escitalopram 10 mg oral tablet (8 sources) Serotonin Reuptake Inhibitor Start: 04-09-20 take 1 tablet by mouth once daily Escitalopram Oxalate 10 mg tablet Active 10 mg PO DAILY April 09, 2023 12:00am LORazepam 0.5 mg oral tablet (20 sources) Benzodiazepine Start: 01-28-20 take 1 tablet by mouth three times daily Lorazepam 0.5 mg tablet Active 0.5 mg PO THREE TIMES A DAY January 27, 2025 12:00am February 25, 2025 12:00am Start: 08-22-2024 End: 01-25-2025 take 1 tablet by mouth three times daily Lorazepam 0.5 mg tablet Discontinued 0.5 mg PO THREE TIMES A DAY December 26, 2024 10:29am January 24, 2025 12:00am January 25, 2025 12:08am Start: 12-31-2011 End: 09-16-2012 take 1 tablet by mouth once daily as needed ATIVAN, 0.5MG (Oral Tablet) 1 Tablet qd prn for 0 days Quantity: 30 {Tablet} Refills: 0 Ordered: 16-Sep-2012 Alyson Dixon LPN Start : 31-Dec-2011 End : 16-Sep-2012 Inactive Comments: thirty Comment on above: thirty melatonin 3 mg oral capsule (8 sources) Start: 04-09-2023 take 1 capsule by mouth at bedtime Melatonin 3 mg capsule Active 3 mg PO BEDTIME April 09, 2023 12:00am oxyCODONE hydrochloride 5 mg oral tablet (12 sources) Opioid Agonist Start: 02-07-2024 take 1 tablet by mouth every twelve hours Oxycodone 5 mg tablet Active 5 mg PO Q12H February 07, 2024 12:00am Start: 04-09-2023 take 1 capsule by mo uth every six hours as needed for pain Oxycodone 5 mg capsule Active 5 mg PO EVERY 6 HOURS as needed for pain April 09, 2023 12:00am pregabalin 25 mg oral capsule (20 sources) Start: 02-01-2025 take 1 capsule by mouth once daily Pregabalin 25 mg capsule Active 25 mg PO daily February 01, 2025 12:00am March 02, 2025 12:00am At 5pm Start: 09-30-2024 End: 01-31-2025 Pregabalin (Lyrica) 50 mg ca psule Discontinued 25 mg PO daily January 01, 2025 4:19pm January 30, 2025 12:00am January 31, 2025 12:08am Start: 09-30-2024 End: 12-04-2024 take 1 capsule by mouth once daily Pregabalin 25 mg capsule Discontinued 25 mg PO daily November 04, 2024 10:03am December 03, 2024 12:00am December 04, 2024 12:11am Start: 09-30-2021 End: 09-30-2024 take 1 capsule by mouth at bedtime Pregabalin (Lyrica) 50 mg capsule Discontinued 50 mg PO AT BEDTIME September 30, 2021 1:00am September 30, 2024 5:08pm Vit C,W-Ib-Vjzpc-Lutein-Zeax an (10 sources) Start: 05-13-2019 Vit C,E-Zn-Playground Monitor ur-Segovr-[place] Active 1 EACH PO DAILY May 13, 2019 9:27am Start: 05-13-2019 End: 05-21-2023 Vit C,T-Fc-Cchfx-Lutein-Zeax an Discontinued 1 EACH PO DAILY May 13, 2019 12:00am May 21, 2023 10:07am Start: 05-13-2019 End: 05-21-2023 Vit C,Z-Dz-Lujvv-Lutein-Zeax an Discontinued 1 EACH PO DAILY May 12, 2019 11:00pm May 21, 2023 9:07am Start: 05-13-2019 Vit C,E-Zn-Playground Monitor qn-Onwdns-Vdbuna Active 1 EACH PO DAILY May 12, 2019 11:00pm Start: 05-13-2019 Vit C,E-Zn-Playground Monitor ip-Mxaacr-Ahxauk Active 1 EACH PO DAILY May 13, 2019 12:00am Completed/Discontinued Medications Medication Drug Class(es) Dates Sig (Normalized) Sig (Original) HYDROCODONE-ACETAM INOPHEN (2 sources) Opioid Agonist Start: 05-07-2016 take 1 tablet by mouth once daily at bedtime NORCO 5-325 MG TABS One tablet by mouth daily @ bedtime HYDROCODONE-ACETAMI NOPHEN [id number] Jose Vargas MD Start: 05-07-2016 End: 06-05-2017 take 1 tablet by mouth once daily at bedtime NORCO 5-325 MG TABS One tablet by mouth daily @ bedtime HYDROCODONE-ACETAMINOPHEN [id number] Jose Vargas MD acetaminophen 325 mg / oxyCODONE hydrochloride 5 mg oral tablet (20 sources) Opioid Agonist Start: 09-10-2015 End: 11-29-2015 take 1 tablet by mouth twice daily as needed PERCOCET, 5-325MG (Oral Tablet) 1 Tablet bid prn for 0 days Quantity: 30 {Tablet} Refills: 0 Ordered: 29-Nov-2015 Alyson Dixon LPN Start : 10-Sep-2015 End : 29-Nov-2015 Inactive Comments: thirty Start: 12-07-2013 PERCOCET 5-325 MG TABS As needed OXYCODONE-ACETAMINOPHEN [id number] Kaelyn Ellis RN Start: 12-07-2013 PERCOCET 5-325 MG TABS As needed OXYCODONE-ACETAMINOPHEN [id number] Zaria Trevino PA-C Start: 12-07-2013 End: 11-05-2015 PERCOCET 5-325 MG TABS As ne eded OXYCODONE-ACETAMINOPHEN [id number] Zaria Trevino PA-C Start: 02-10-2013 PERCOCET 10-32 5 MG TABS As needed OXYCODONE-ACETAMINOPHEN [id number] Jose Vargas MD Comment on above: thirty acetaminophen 500 mg / propoxyphene napsylate 100 mg oral tablet (18 sources) Opioid Agonist Start: 01-02-2009 End: 01-02-2009 take 1 tablet by mouth every six hours as needed DARVOCET A500, 100-500MG (Oral Tablet) 1 (one) Tablet Q 6hr/PRN for 0 days Quantity: 60 {Tablet} Refills: 0 Ordered: 02-Jan-2009 Mirella Mccracken DO, DO, Kathleen Start : 02-Jan-2009 End : 02-Jan-2009 Discontinued aluminum hydroxide 40 mg/ml / magnesium hydroxide 40 mg/ml / simethicone 4 mg/ml oral suspension (8 sources) Start: 04-09-2023 End: 02-07-2024 take 1 mL by mouth once at bedtime Alum-Mag Hydroxide-Simeth (Katie-Lanta) 200-200-20 mg/5 mL suspension Discontinued 5 mL PO ONCE April 09, 2023 12:00am February 07, 2024 3:31am administer between meals and at bedtime Start: 04-09-2023 take 1 mL by mouth o nce at bedtime Alum-Mag Hydroxide-Simeth (Katie-Lanta) 200-200-20 mg/5 mL suspension Active 5 ML PO ONCE April 09, 2023 12:00am administer between meals and at bedtime amiodarone hydrochloride 200 mg oral tablet (20 sources) Antiarrhythmic Start: 12-22-2011 End: 02-18-2012 take 1 tablet by mouth once daily AMIODARONE HCL 200 MG TABS One tablet by mouth daily AMIODARONE HCL [id number] Jose Vargas MD Start: 11-25-2011 take 1 tablet by jeffry th twice daily AMIODARONE HCL 200 MG TABS One tablet by mouth twice daily AMIODARONE HCL [id number] Jose Vargas MD amoxicillin 500 mg oral capsule (18 sources) Penicillin-class Antibacterial Start: 04-17-2014 End: 2014 take 1 capsule by mouth twice daily AMOXICILLIN, 500MG (Oral Capsule) 1 Capsule bid for 14 days Quantity: 28 {Capsule} Refills: 0 Ordered: 17-Apr-2014 Mirella Mccracken DO, DO, Kathleen Start : 17-Apr-2014 End : 01-May-2014 Inactive amoxicillin 875 mg / clavulanate 125 mg oral tablet (18 sources) Penicillin-class Antibacterial Start: 09-11-2014 End: 09-21-2014 take 1 tablet by mouth twice daily AUGMENTIN, 875-125MG (Oral Tablet) 1 (one) Tablet bid for 10 days Quantity: 20 {Tablet} Refills: 0 Ordered: 11-Sep-2014 Evelia Vergara Start : 11-Sep-2014 End : 21-Sep-2014 Inactive atorvastatin 10 mg oral tablet (20 sources) HMG-CoA Reductase Inhibitor Start: 09-30-2021 End: 05-21-2023 take 1 tablet by mouth once daily Atorvastatin 10 mg tablet Discontinued 10 mg PO DAILY September 30, 2021 1:00am May 21, 2023 10:08am Start: 08-08-2013 End: 04-10-2014 take 1 tablet by mouth once daily LIPITOR 20 MG TABS One tablet by mouth daily ATORVASTATIN CALCIUM [id number] Zaria Trevino PA-C Start: 11-25-2011 End: 04-06-2014 take 1 tablet by mouth once daily LIPITOR, 40MG (Oral Tablet) 1 qd for 0 days Refills: 0 Ordered: 06-Apr-2014 Alyson Dixon LPN Start : 11-Mar-2012 End : 06-Apr-2014 Inactive AXONA (Oral Packet) (18 sources) Start: 07-04-2013 End: 04-06-2014 take 1 dose by mouth once daily AXONA (Oral Packet) 1 Packet qd for 0 days Quantity: 30 {Packet} Refills: 3 Ordered: 06-Apr-2014 Alyson Dixon LPN Start : 04-Jul-2013 End : 06-Apr-2014 Inactive benzocaine 0.1 mg/mg oral gel (8 sources) Standardized Chemical Allergen Start: 04-09-2023 End: 02-07-2024 Benzocaine (Anbesol (Benzocaine)) 10 % gel Discontinued 1 NMA MUCOUS MEM ONCE as needed April 09, 2023 12:00am February 07, 2024 3:31am Start: 04-09-2023 Benzocaine (An besol (Benzocaine)) 10 % gel Active 1 APPLIC MUCOUS MEM ONCE April 09, 2023 12:00am calcium carbonate (1 source) take 1 tablet by mouth once daily CALCIUM 600 TABS One tablet by mouth daily CALCIUM CARBONATE TABS [id number] Dick Morris DO calcium carbonate / vitamin D (2 sources) Start: 01-06-2012 take 1 tablet by mouth once daily CALCIUM + D 600-200 MG-UNIT TABS One tablet by mouth daily CALCIUM CARBONATE-VITAMIN D [id number] Jose Vargas MD Start: 01-06-2012 End: 04-12-2012 take 1 tablet by mouth once daily CALCIUM + D 600-200 MG-UNIT TABS One tablet by mouth daily CALCIUM CARBONATE-VITAMIN D [id number] Jose Vargas MD casanthranol 30 mg / docusate sodium 100 mg oral capsule (18 sources) End: 06-20-2013 take 7 capsules by mouth once, then take 30-100 mg by mouth LAXATIVE & STOOL SOFTENER, 30-100MG (PO Cap) for 0 days Refills: 0 Ordered: 20-Jun-2013 FRANCI Castelan End : 20-Jun-2013 Discontinued Comments: This order discontinued per [facility]. Comment on above: This order discontin ued per [facility]. cephalexin 500 mg oral capsule (20 sources) Cephalosporin Antibacterial Start: 12-05-2023 End: 02-07-2024 take 1 capsule by mouth every eight hours Cephalexin 500 mg capsule Discontinued 500 mg PO Q8H December 05, 2023 12:00am February 07, 2024 3:31am Start: 03-11-2012 End: 03-21-2012 take 1 capsule by mouth three times daily KEFLEX, 500MG (Oral Capsule) 1 Capsule tid for 10 days Quantity: 30 {Capsule} Refills: 0 Ordered: 11-Mar-2012 Stephenie Burkett MD Start : 11-Mar-2012 End : 21-Mar-2012 Inactive CEREFOLIN NAC, 6-2-600MG (Oral Tablet) (18 sources) Start: 10-14-2010 End: 06-05-2011 take 1 tablet by mouth once daily CEREFOLIN NAC, 6-2-600MG (Oral Tablet) 1 Tablet qd for 0 days Quantity: 30 {Tablet} Refills: 11 Ordered: 05-Jun-2011 Alyson Dixon LPN Start : 14-Oct-2010 End : 05-Jun-2011 Inactive Comments: dispense as written Comment on above: dispense as written cholecalciferol 0.025 mg oral tablet (20 sources) Vitamin D Start: 07-25-2014 End: 05-21-2023 take 1 tablet by mouth once daily Cholecalciferol (Vitamin D3) (Vitamin D3) 1,000 UNIT tablet Discontinued 1000 U PO DAILY July 25, 2014 1:00am May 21, 2023 10:08am Start: 07-13-2014 End: 11-29-2015 take 1 capsule by mouth every week VITAMIN D3, [id number] (Oral Capsule) 1 (one) Capsule Capsule q week for 0 days Quantity: 4 {Capsule} Refills: 3 Ordered: 29-Nov-2015 Alyson Dixon LPN Start : 13-Jul-2014 End : 29-Nov-2015 Inactive Start: 01-06-2012 End: 04-12-2012 take 1 tablet by mouth once daily VITAMIN D 2000 UNIT TABS One tablet by mouth daily CHOLECALCIFEROL [id number] Jose Vargas MD ciprofloxacin 500 mg oral tablet (20 sources) Quinolone Antimicrobial Start: 12-01-2013 End: 04-06-2014 take 1 tablet by mouth twice daily CIPRO, 500MG (Oral Tablet) 1 (one) Tablet Twice daily for 0 days Quantity: 20 {Tablet} Refills: 0 Ordered: 06-Apr-2014 Alyson Dixon LPN Start : 01-Dec-2013 End : 06-Apr-2014 Inactive Start: 11-26-2011 End: 12-03-2011 take 1 tablet by mouth twice daily CIPRO, 250MG (Oral Tablet) 1 Tablet bid for 7 days Refills: 0 Ordered: 15-Dec-2011 Mirella Mccracken DO, DO, Kathleen Start : 26-Nov-2011 End : 03-Dec-2011 Inactive clopidogrel 75 mg oral tablet (20 sources) P2Y12 Platelet Inhibitor Start: 11-25-2011 End: 04-10-2014 take 1 tablet by mouth once daily PLAVIX, 75MG (Oral Tablet) 1 qd for 0 days Refills: 0 Ordered: 27-Dec-2013 Alyson Dixon LPN Start : 11-Mar-2012 End : 27-Dec-2013 Inactive cranberry preparation 450 mg oral capsule (4 sources) Non-Standardized Food Allergenic Extract, Non-Standardized Plant Allergenic Extract Start: 10-10-2014 End: 11-05-2015 take 1 tablet by mouth once daily CRANBERRY CAPS One tablet by mouth daily CRANBERRY CAPS [id number] Zaria Trevino PA-C CRANBERRY-VITAMIN C, 84-20MG (Oral Capsule) (18 sources) Start: 08-14-2014 End: 11-29-2015 take 1 capsule by mouth once daily CRANBERRY-VITAMIN C, 84-20MG (Oral Capsule) 1 (one) Capsule qd for 30 days Refills: 0 Ordered: 29-Nov-2015 Alyson Dixon LPN Start : 14-Aug-2014 End : 29-Nov-2015 Inactive cyclobenzaprine hydrochloride 10 mg oral tablet (18 sources) Muscle Relaxant Start: 02-28-2013 End: 06-20-2013 take 1 tablet by mouth twice daily as needed FLEXERIL, 10MG (Oral Tablet) 1 Tablet bid prn for 0 days Quantity: 10 {Tablet} Refills: 0 Ordered: 28-Feb-2013 FRANCI Castelan Start : 28-Feb-2013 End : 20-Jun-2013 Discontinued Comments: This order discontinued per [facility]. Comment on above: This order discontin ued per [facility]. denosumab 60 mg/ml injectable solution (18 sources) RANK Ligand Inhibitor Start: 01-04-2015 End: 01-04-2015 PROLIA, 60MG/ML (Subcutaneous Solution) 1 (one) Solution q 3 months for 0 days Quantity: 1 {Vial} Refills: 3 Ordered: 04-Jan-2015 Stephenie Burkett MD Start : 04-Jan-2015 End : 04-Jan-2015 Inactive desonide 0.0005 mg/mg topical ointment (2 sources) Corticosteroid Start: 05-08-2011 End: 01-06-2012 DESONIDE 0.05 % OINT apply twice daily DESONIDE [id number] Dick Morris DO desoximetasone 2.5 mg/ml topical cream (20 sources) Corticosteroid Start: 05-07-2011 End: 06-05-2011 TOPICORT, 0.25% (External Cream) 1 Cream bid for 0 days Quantity: 1 {Cream} Refills: 0 Ordered: 05-Jun-2011 Alyson Dixon LPN Start : 07-May-2011 End : 05-Jun-2011 Inactive TOPICORT 0.25 % CREA apply twice daily DESOXIMETASONE [id number] Dick Morris DO End: 04-12-2012 TOPICORT 0.25 % CREA apply t wice daily DESOXIMETASONE [id number] Jose Vargas MD diazePAM 2 mg oral tablet (18 sources) Benzodiazepine Start: 07-13-2014 End: 11-29-2015 take 1 tablet by mouth twice daily as needed VALIUM, 2MG (Oral Tablet) 1 Tablet Tablet bid for muscle spams prn for 0 days Quantity: 30 {Tablet} Refills: 0 Ordered: 29-Nov-2015 Alyson Dixon LPN Start : 13-Jul-2014 End : 29-Nov-2015 Inactive Comments: do not drive or operate machinery while taking thisten Comment on above: do not drive or oper ate machinery while taking thisten diphenhydrAMINE hydrochloride 25 mg oral tablet (20 sources) Histamine-1 Receptor Antagonist Start: 11-04-2010 End: 06-05-2011 take 1 tablet by mouth once at bedtime as needed BENADRYL, 25MG (Oral Tablet) 1 Tablet q hs prn for 0 days Quantity: 30 {Tablet} Refills: 0 Ordered: 05-Jun-2011 Alyson Dixon LPN Start : 04-Nov-2010 End : 05-Jun-2011 Inactive End: 12-22-2011 take 1 tablet by mouth twice daily BENADRYL ALLERGY 25 MG TABS One tablet by mouth twice daily DIPHENHYDRAMINE HCL [id number] Mary Nolen RN ergocalciferol 69019 unt oral capsule (20 sources) Provitamin D2 Compound Start: 01-12-2009 End: 04-13-2014 take 1 capsule by mouth every week ERGOCALCIFEROL, [id number] (Oral Capsule) 1 Capsule 2 x week for 0 days Quantity: 8 {Capsule} Refills: 3 Ordered: 13-Apr-2014 Alyson Dixon LPN Start : 12-Jan-2009 End : 13-Apr-2014 Inactive End: 01-06-2012 VITAMIN D (ERGOCALCIFEROL) 5 0000 UNIT CAPS one tablet twice a week ERGOCALCIFEROL [id number] Dick Morris DO estradiol 0.025 mg vaginal tablet (18 sources) Estrogen Start: 10-04-2008 End: 01-02-2009 VAGIFEM, 25MCG (Vaginal Tablet) 1 (one) Tablet 2x week for 0 days Quantity: 8 {Tablet} Refills: 2 Ordered: 04-Oct-2008 Alyson Dixon LPN Start : 04-Oct-2008 End : 02-Jan-2009 Inactive 24 hr etodolac 400 mg extended release oral tablet (18 sources) Nonsteroidal Anti-inflammatory Drug Start: 01-17-2009 End: 12-13-2009 take 2 tablets by mouth once daily LODINE XL, 400MG (Oral Tablet Extended Release 24 Hour) 2 (two) Tablet ER 24HR Daily for 0 days Quantity: 30 {Tablet_ER_24HR} Refills: 0 Ordered: 17-Jan-2009 Alyson Dixon LPN Start : 17-Jan-2009 End : 13-Dec-2009 Discontinued Comments: This order discontinued per [facility]. Comment on above: This order discontin ued per [facility]. famotidine 20 mg oral tablet (18 sources) Histamine-2 Receptor Antagonist Start: 11-06-2010 End: 06-05-2011 take 1 tablet by mouth twice daily PEPCID, 20MG (Oral Tablet) 1 Tablet bid for 0 days Quantity: 30 Refills: 0 Ordered: 05-Jun-2011 Alyson Dixon LPN Start : 06-Nov-2010 End : 05-Jun-2011 Inactive furosemide 20 mg oral tablet (18 sources) Loop Diuretic Start: 04-15-2013 End: 06-20-2013 take 1 tablet by mouth once daily LASIX, 20MG (Oral Tablet) 1 Tablet qd for 0 days Quantity: 3 {Tablet} Refills: 0 Ordered: 20-Jun-2013 FRANCI Castelan Start : 15-Apr-2013 End : 20-Jun-2013 Inactive gabapentin 600 mg oral tablet (20 sources) Anti-epileptic Agent Start: 09-25-2016 End: 12-25-2016 take 1 tablet by mouth four times daily Gabapentin 600 MG Oral Tablet 1 Tablet qid for 0 days Quantity: 300 {Tablet} Refills: 3 Ordered: 25-Dec-2016 Alyson Dixon LPN Start : 25-Sep-2016 End : 25-Dec-2016 Inactive Start: 02-10-2013 take 1 tablet by jeffry th three times daily GABAPENTIN 300 MG CAPS One tablet by mouth three times daily GABAPENTIN [id number] Jose Vargas MD Start: 02-10-2013 End: 11-05-2015 take 1 tablet by mouth twice daily GABAPENTIN 600 MG TABS One tablet by mouth twice daily GABAPENTIN [id number] Zaria Trevino PA-C Start: 01-06-2012 take 1 tablet by jeffry th three times daily NEURONTIN 100 MG CAPS One tablet by mouth three times daily GABAPENTIN [id number] Jose Vargas MD hydrOXYzine hydrochloride 50 mg oral tablet (18 sources) Antihistamine Start: 05-08-2011 End: 06-05-2011 HYDROXYZINE HCL, 50MG (Oral Tablet) 1 Tablet q6-8 hrs prn itching for 0 days Quantity: 30 {Tablet} Refills: 0 Ordered: 05-Jun-2011 Alyson Dixon LPN Start : 08-May-2011 End : 05-Jun-2011 Inactive ibandronic acid 150 mg oral tablet (18 sources) Bisphosphonate Start: 12-13-2009 End: 12-13-2009 take 1 tablet by mouth every month BONIVA, 150MG (Oral Tablet) 1 (one) Tablet qmonth for 0 days Quantity: 3 {Tablet} Refills: 1 Ordered: 13-Dec-2009 Nicole ANAND Mirella Mccracken DO Mirella Start : 13-Dec-2009 End : 13-Dec-2009 Discontinued 24 hr isosorbide mononitrate 30 mg extended release oral tablet (4 sources) Start: 08-08-2013 End: 12-07-2013 take 1 tablet by mouth once daily ISOSORBIDE MONONITRATE ER 30 MG [id number] One tablet by mouth daily (Imdur) ISOSORBIDE MONONITRATE [id number] Zaria Trevino PA-C Start: 04-27-2013 take 1 tablet by jeffry th once daily IMDUR 60 MG [id number] One tablet by mouth daily ISOSORBIDE MONONITRATE [id number] Jose Vargas MD Start: 03-09-2013 take 1 tablet by jeffry th once daily IMDUR 30 MG [id number] One tablet by mouth daily ISOSORBIDE MONONITRATE [id number] Jose Vargas MD [id number] TAB S (2 sources) take 1 tablet by mouth once daily CEREFOLIN TABS One tablet by mouth daily [id number] TABS [id number] Dick Morris DO End: 12-22-2011 take 1 tablet by mouth once daily CEREFOLIN TABS One tablet by mouth daily [id number] TABS [id number] Mary Nolen RN lisinopril 5 mg oral tablet (20 sources) Angiotensin Converting Enzyme Inhibitor Start: 04-24-2014 End: 06-27-2014 take 1 tablet by mouth once daily LISINOPRIL 2.5 MG TABS One tablet by mouth daily LISINOPRIL [id number] Kaelyn Ellis RN Start: 12-07-2013 End: 04-10-2014 take 1 tablet by mouth once daily LISINOPRIL 5 MG TABS One tablet by mouth daily LISINOPRIL [id number] Jose Vargas MD Start: 04-27-2013 End: 11-05-2015 take 1 tablet by mouth twice daily ZESTRIL, 5MG (Oral Tablet) 1 (one) Tablet bid for 30 days Quantity: 45 {Tablet} Refills: 3 Ordered: 12-Oct-2014 Alyson Dixon LPN Start : 25-Jul-2014 End : 12-Oct-2014 Inactive loratadine 10 mg oral tablet (18 sources) Start: 05-06-2011 End: 06-05-2011 take 1 tablet by mouth once daily CLARITIN, 10MG (Oral Tablet) 1 Tablet daily for 30 days Refills: 0 Ordered: 06-May-2011 Padmini Bernstein LPN Start : 06-May-2011 End : 05-Jun-2011 Inactive lutein 20 mg oral tablet (4 sources) Start: 04-10-2014 End: 10-10-2014 take 1 tablet by mouth once daily LUTEIN 20 MG TABS One tablet by mouth daily LUTEIN [id number] Zaria Trevino PA-C End: 07-08-2012 take 1 tablet by mouth once daily LUTEIN CAPS One tablet by mouth daily LUTEIN CAPS [id number] Dick Morris DO melatonin 3 mg / vitamin b6 10 mg oral tablet (14 sources) Start: 05-13-2019 End: 05-21-2023 Melatonin-Pyridoxine Hcl (B6 ) 1 EACH tablet Discontinued 1 NMA PO NEEDED as needed for Sleep May 13, 2019 12:00am May 21, 2023 10:08am Start: 05-13-2019 End: 05-21-2023 Melatonin-Pyridoxine Hcl (B6 ) Discontinued 1 EACH PO NEEDED May 13, 2019 12:00am May 21, 2023 10:08am meloxicam 7.5 mg oral tablet (20 sources) Nonsteroidal Anti-inflammatory Drug Start: 10-12-2014 End: 05-21-2016 take 1 tablet by mouth once daily Mobic 7.5 MG Oral Tablet 1 Tablet daily for 0 days Quantity: 30 {Tablet} Refills: 0 Ordered: 21-May-2016 Katerine Delarosa LPN Start : 12-Oct-2014 End : 21-May-2016 Discontinued Start: 10-10-2014 End: 11-05-2015 take 1 tablet by mouth once daily MELOXICAM 15 MG TABS One tablet by mouth daily MELOXICAM [id number] Zaria Trevino PA-C metaxalone 800 mg oral tablet (18 sources) Start: 12-15-2011 End: 09-16-2012 take 1 tablet by mouth three times daily METAXALONE, 800MG (Oral Tablet) 1 Tablet tid for 0 days Quantity: 30 {Tablet} Refills: 0 Ordered: 16-Sep-2012 Alyson Dixon LPN Start : 15-Dec-2011 End : 16-Sep-2012 Inactive metoprolol tartrate 25 mg oral tablet (20 sources) beta-Adrenergic Soledad Start: 06-27-2014 End: 05-07-2016 take 1 tablet by mouth twice daily METOPROLOL TARTRATE 25 MG TABS One tablet by mouth twice daily METOPROLOL TARTRATE [id number] Jose Vargas MD Start: 03-11-2012 End: 04-06-2014 take 0.5 tablet by mouth once daily METOPROLOL SUCCINATE ER, 25MG (Oral Tablet Extended Release 24 Hour) 1/2 qd for 0 days Refills: 0 Ordered: 06-Apr-2014 Alyson Dixon LPN Start : 11-Mar-2012 End : 06-Apr-2014 Inactive Start: 11-25-2011 End: 04-10-2014 take 1 tablet by mouth twice daily METOPROLOL TARTRATE 25 MG TABS One tablet by mouth twice daily METOPROLOL TARTRATE [id number] Jose Vargas MD Multivitamin preparation (18 sources) End: 11-29-2015 MULTIVITAMIN (Oral Liquid) for 0 days Refills: 0 Ordered: 29-Nov-2015 Alyson Dixon LPN End : 29-Nov-2015 Inactive nitroglycerin 0.4 mg sublingual tablet (20 sources) Nitrate Vasodilator Start: 01-06-2012 End: 04-10-2014 NITROSTAT 0.4 MG SUBL 1 tablet under tongue every 5 min up to 3 X NITROGLYCERIN [id number] Jose Vargas MD Start: 12-26-2011 End: 11-29-2015 take 1 tablet under the tongue once NITROSTAT, 0.4MG (Sublingual Tablet Sublingual) 1 Tab Sublingual in office at 205pm for 1 days Quantity: 1 {Tab_Sublingual} Refills: 0 Ordered: 29-Nov-2015 Alyson Dixon LPN Start : 26-Dec-2011 End : 29-Nov-2015 Inactive Comments: MeganREchecked at 215pmpatient states feels relief and declines secnd pill -- vitals after pill in emr Comment on above: MeganREchecked at 21 5pmpatient states feels relief and declines secnd pill -- vitals after pill in emr omeprazole 20 mg delayed release oral capsule (20 sources) Proton Pump Inhibitor Start: 2 End: 2 take 1 capsule by mouth once daily OMEPRAZOLE 20 MG CPDR One capsule by mouth daily OMEPRAZOLE [id number] Lex Munoz Start: 12-31-2011 End: 06-20-2013 PRILOSEC, 20MG (Oral Capsule Delayed Release) [address] qd for 0 days Quantity: 30 {Capsule_DR} Refills: 0 Ordered: 20-Jun-2013 FRANCI Castelan Start : 31-Dec-2011 End : 20-Jun-2013 Inactive End: 12-22-2011 take 1 tablet by mouth once daily PRILOSEC 10 MG CPDR One tablet by mouth daily OMEPRAZOLE [id number] Dick Morris DO pantoprazole 20 mg delayed release oral tablet (2 sources) Proton Pump Inhibitor End: 04-12-2012 take 1 tablet by mouth once daily PROTONIX 20 MG TBEC One tablet by mouth daily PANTOPRAZOLE SODIUM [id number] Jose Vargas MD pravastatin sodium 80 mg oral tablet (18 sources) HMG-CoA Reductase Inhibitor take 1 tablet by mouth once daily PRAVASTATIN SODIUM, 80MG (Oral Tablet) 1 qd (80 MG) Inactive predniSONE 10 mg oral tablet (20 sources) Corticosteroid Start: 05-06-2011 End: 05-13-2011 take 3 tablets by mouth once daily PREDNISONE, 10MG (Oral Tablet) 3 (three) Tablet daily for 7 days Quantity: 21 {Tablet} Refills: 0 Ordered: 06-May-2011 Padmini Bernstein LPN Start : 06-May-2011 End : 13-May-2011 Inactive End: 12-22-2011 take 3 tablets by mouth once daily PREDNISONE TABS Three tablets by mouth daily PREDNISONE TABS [id number] Mary Nolen RN take 3 tablets by mo uth once daily PREDNISONE TABS Three tablets by mouth daily PREDNISONE TABS [id number] Dick Morris DO rosuvastatin calcium 10 mg oral tablet (20 sources) HMG-CoA Reductase Inhibitor Start: 02-02-2019 take 1 tablet by mouth once daily Crestor 10 MG Oral Tablet 1 (one) Tablet qd for 0 days Quantity: 30 {Tablet} Refills: 4 Ordered: 02-Feb-2019 Mirella Mccracken DO, DO, Kathleen Start : 02-Feb-2019 Active Comments: substitute generic Start: 01-19-2019 take 1 tablet by jeffry th once daily Crestor 10 MG Oral Tablet 1 (one) Tablet qd for 0 days Quantity: 30 {Tablet} Refills: 4 Ordered: 19-Jan-2019 Mirella Mccracken DO, DO, Kathleen Start : 19-Jan-2019 Active Comments: substitute generic Start: 11-23-2017 End: 09-30-2021 take 10 mg by mouth once daily Rosuvastatin 20 mg tabl et Discontinued 10 mg PO daily November 23, 2017 12:00am September 30, 2021 11:54am Start: 11-23-2017 End: 09-30-2021 take 10 mg by mouth once daily Rosuvastatin Discontinu ed 10 MG PO daily November 23, 2017 12:00am September 30, 2021 11:54am Start: 06-05-2017 take 1 tablet by jeffry th once daily CRESTOR 20 MG TABS One tablet by mouth daily ROSUVASTATIN CALCIUM [id number] Jose Vargas MD Comment on above: substitute generic Mail order. DOCUSATE SODIUM CAPS (2 sources) COLACE CAPS as n eeded DOCUSATE SODIUM CAPS [id number] Dick Morris DO End: 10-10-2014 COLACE CAPS as needed 10/10 DOCUSATE SODIUM CAPS [id number] Zaria Trevino PA-C 28 actuat teriparatide 0.02 mg/actuat pen injector (18 sources) Parathyroid Hormone Analog Start: 05-09-2015 End: 11-29-2015 FORTEO, 600MCG/2.4ML (Subcutaneous Solution) 1 (one) Solution qd for 0 days Quantity: 30 {Vial} Refills: 11 Ordered: 29-Nov-2015 Alyson Dixon LPN Start : 09-May-2015 End : 29-Nov-2015 Inactive Comments: Approved Comment on above: Approved 24 hr tolterodine tartrate 4 mg extended release oral capsule (20 sources) Cholinergic Muscarinic Antagonist Start: 08-21-2010 End: 06-05-2011 take 1 capsule by mouth once daily DETROL LA, 4MG (Oral Capsule Extended Release 24 Hour) 1 Capsule ER 24HR QD for 0 days Quantity: 30 {Capsule_ER_24HR} Refills: 6 Ordered: 05-Jun-2011 Alyson Dixon LPN Start : 21-Aug-2010 End : 05-Jun-2011 Inactive End: 12-22-2011 take 1 tablet by mouth once daily DETROL LA 4 MG [id number] One tablet by mouth daily TOLTERODINE TARTRATE [id number] Mary Nolen RN take 1 tablet by jeffry th once daily DETROL LA 4 MG [id number] One tablet by mouth daily TOLTERODINE TARTRATE [id number] Dick Morris DO traMADol hydrochloride 50 mg oral tablet (20 sources) Opioid Agonist Start: 03-26-2017 End: 05-07-2017 take 1-2 tablets by mouth once as needed, then take 6 tablets by mouth as needed TraMADol HCl 50 MG Oral Tablet 1-2 Tablet every 6 horus prn for 0 days Quantity: 20 {Tablet} Refills: 0 Ordered: 07-May-2017 Alyson Dixon LPN Start : 26-Mar-2017 End : 07-May-2017 Inactive Comments: [age] Start: 11-26-2011 End: 11-26-2011 take 1-2 tablets by mouth every eight hours as needed ULTRAM, 50MG (Oral Tablet) 1-2 Tablet Q 8 hr prn for 0 days Quantity: 60 {Tablet} Refills: 0 Ordered: 26-Nov-2011 Mirella Mccarcken DO, DO, Kathleen Start : 26-Nov-2011 End : 26-Nov-2011 Discontinued Comments: [age]-- after bypass surgery take 1 tablet by jeffry th three times daily ULTRAM TABS One tablet by mouth three times daily TRAMADOL HCL TABS [id number] Dick Morris DO End: 12-22-2011 take 1 tablet by mouth three times daily ULTRAM TABS One tablet by mouth three times daily TRAMADOL HCL TABS [id number] Mary Nolen RN Comment on above: [age]-- after bypass surgery [age] triamcinolone acetonide 1 mg/ml topical cream (20 sources) Corticosteroid Start: 04-09-2023 End: 02-07-2024 Triamcinolone Acetonide 0.1 % cream Discontinued 1 NMA TOPICAL TWICE A DAY April 09, 2023 12:00am February 07, 2024 3:31am Start: 05-08-2011 End: 06-05-2011 TRIAMCINOLONE ACETONIDE, 0.1 % (External Cream) 1 Cream twice daily for 0 days Quantity: 1 {Cream} Refills: 0 Ordered: 05-Jun-2011 Alyson Dixon LPN Start : 08-May-2011 End : 05-Jun-2011 Inactive Comments: apply sparingly Comment on above: apply sparingly venlafaxine 37.5 mg oral tablet (18 sources) Serotonin and Norepinephrine Reuptake Inhibitor Start: 014 End: take 1 tablet by mouth once daily VENLAFAXINE HCL, 37.5MG (Oral Tablet) 1 (one) Tablet Tablet qd for 0 days Quantity: 30 {Tablet} Refills: 3 Ordered: 06-Apr-2014 Alyson Dixon LPN Start : 01-Dec-2013 End : 06-Apr-2014 Inactive Vit C,J-Qo-Vrfpy-Lutein-Ze axan 1 EACH capsule (4 sources) Start: 019 End: 023 take 1 capsule by mouth once daily Vit C,V-Te-Dctii-Lutein-Z eaxan 1 EACH capsule Discontinued 1 NMA PO DAILY May 13, 2019 12:00am May 21, 2023 10:07am CHOLECALCIFEROL (4 sources) Start: 016 End: 016 take 1 tablet by mouth once daily VITAMIN D 1000 UNIT TABS One tablet by mouth daily CHOLECALCIFEROL [id number] Zaria Trevino PA-C Start: 11-02-2015 [facility] daily VITAMIN D 1000 UNIT TABS One tablet by mouth daily CHOLECALCIFEROL [id number] Mary Nolen RN Start: 02-10-2013 End: 10-10-2014 take 1 tablet by mouth once daily VITAMIN D 1000 UNIT TABS One tablet by mouth daily CHOLECALCIFEROL [id number] Zaria Trevino PA-C Start: 02-10-2013 take 1 tablet by jeffry th once daily VITAMIN D 1000 UNIT TABS One tablet by mouth daily CHOLECALCIFEROL [id number] Jose Vargas MD Problems Active Problems Problem Classification Problem Date Documented Date Episodic/Chronic Adjustment disorders (18 sources) Adjustment disorder with depressed mood; Translations: [Grief finding] 01-21-2018 Chronic Anxiety disorders (20 sources) Anxiety; Translations: [Anxiety disorder, unspecified] Onset: 08-22-2024 01-21-2018 Chronic Comment on above: stable Cardiac dysrhythmias (20 sources) Paroxysmal atrial fibrillation; Translations: [Sinus bradycardia] Onset: 01-06-2012 01-06-2012 Chronic Cataract (18 sources) Cataract; Translations: [Cataract] 01-21-2018 Chronic Complication of device; implant or graft (1 source) Atherosclerosis of coronary artery bypass graft(s) without angina pectoris; Translations: [Atherosclerosis of coronary artery bypass graft(s) without angina pectoris] Onset: 2016 2016 Chronic Coronary atherosclerosis and other heart disease (20 sources) Atherosclerotic heart disease of false pass coronary artery without angina pectoris; Translations: [Coronary arteriosclerosis] Onset: 12-30-2011 10-31-2016 Chronic Delirium, dementia, and amnestic and other cognitive disorders (10 sources) Dementia; Translations: [Dementia with agitation] Onset: 02-10-2025 08-22-2024 Chronic Disorders of lipid metabolism (20 sources) Hyperlipidemia; Translations: [Pure hypercholesterolemia] Onset: 01-06-2012 01-06-2012 Chronic Essential hypertension (17 sources) Hypertensive disorder; Translations: [Essential (primary) hypertension] Onset: 12-30-2011 12-30-2011 Chronic Fluid and electrolyte disorders (1 source) Hyperkalemia; Translations: [Hyperkalemia] Onset: 02-23-2025 Episodic Genitourinary symptoms and ill-defined conditions (20 sources) Urinary incontinence; Translations: [Urinary incontinence] 01-21-2018 Chronic Headache; including migraine (18 sources) Muscular headache ; Translations: [Muscle tension headache] 01-21-2018 Chronic Headache; including migraine (18 sources) Headache; including migraine Malaise and fatigue (2 sources) Chronic fatigue, unspecified; Translations: [Chronic fatigue, unspecified] Onset: 10-25-2024 Chronic Malignant neoplasm without specification of site (18 sources) Malignant neoplastic disease; 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] 01-21-2018 Chronic Mood disorders (20 sources) Depressive disorder; Translations: [Depressive disorder] Resolved: 01-04-2016 12-25-2016 Chronic Comment on above: stable Mood disorders (18 sources) Mood disorders Nutritional deficiencies (20 sources) Vitamin D deficiency; Translations: [Vitamin D deficiency, unspecified] 01-21-2018 Chronic Osteoarthritis (20 sources) Arthritis; Translations: [Unspecified osteoarthritis, unspecified site] 01-21-2018 Chronic Comment on above: lots of pain Osteoporosis (20 sources) Osteoporosis; Translations: [Osteoporosis] 01-21-2018 Chronic Comment on above: dexa due 10/2016 Other aftercare (14 sources) Long-term current use of drug therapy; Translations: [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] 11-23-2017 Episodic Other bone disease and musculoskeletal deformities (4 sources) Avascular necrosis of bone of hip; 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] 02-07-2024 Chronic Other circulatory disease (15 sources) Carotid bruit; Translations: [Other specified symptoms and signs involving the circulatory and respiratory systems] Onset: 11-05-2015 11-05-2015 Episodic Other connective tissue disease (5 sources) Other bursitis of knee, left knee; Translations: [Pes anserinus tendinitis or bursitis] Episodic Other diseases of veins and lymphatics (12 sources) Lymphedema of limb; Translations: [Lymphedema, limb] 05-05-2019 Chronic Other injuries and conditions due to external causes (14 sources) History of fall; Translations: [History of falling] 10-24-2013 Episodic Other nervous system disorders (4 sources) Walking disability; Translations: [Difficulty in walking, not elsewhere classified] 02-07-2024 Chronic Other non-traumatic joint disorders (11 sources) Pain in left knee; Translations: [Left knee pain] 09-01-2022 Episodic Other nutritional; endocrine; and metabolic disorders (5 sources) Body mass index (BMI) 31.0-31.9, adult; Translations: [Body mass index (BMI) 30.0-30.9, adult] Onset: 04-10-2014 Resolved: 11-05-2015 04-10-2014 Chronic Other nutritional; endocrine; and metabolic disorders (20 sources) Body mass index 30+ - obesity; Translations: [BMI 33.0-33.9,adult] Resolved: 05-07-2017 01-21-2018 Chronic Other nutritional; endocrine; and metabolic disorders (18 sources) Body mass index 25-29 - overweight; Translations: [BMI 28.0-28.9,adult] 01-21-2018 Chronic Peripheral and visceral atherosclerosis (1 source) Intermittent claudication; Translations: [Peripheral vascular disease, unspecified] Onset: 02-10-2013 02-10-2013 Chronic Residual codes; unclassified (18 sources) Obstructive sleep apnea of adult; Translations: [Obstructive sleep apnea, adult] 01-21-2018 Chronic Comment on above: wears cpap Residual codes; unclassified (1 source) Amnesia; Translations: [Memory loss] 01-21-2018 Episodic Comment on above: last consult almost 6 yrs ago -- will refer again for comparison Screening and history of mental health and substance abuse codes (14 sources) Tobacco use and exposure - finding; Translations: [Personal history of nicotine dependence] 10-24-2013 Episodic Spondylosis; intervertebral disc disorders; other back problems (20 sources) Cervical disc disorder; 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] 01-21-2018 Chronic Comment on above: severe managed by specialis t -- wears neck brace Spondylosis; intervertebral disc disorders; other back problems (20 sources) Spondylosis; intervertebral disc disorders; other back problems Unclassified (20 sources) Obstructive sleep apnea syndrome; Translations: [Obstructive sleep apnea (adult) (pediatric)] Onset: 10-10-2014 10-10-2014 Chronic Unclassified (1 source) Coronary artery bypass grafts x 3 ; Translations: [Presence of coronary angioplasty implant and graft] Onset: 12-30-2011 12-30-2011 Unclassified (20 sources) Unclassified (20 sources) Elevated Blood Pressure without diagnosis of Hypertension (796.2) Unclassified (20 sources) Cystitis,Acute (595.0) Unclassified (20 sources) Severe sinus bradycardia (Renamed from Bradycardia, severe sinus) Unclassified (20 sources) Non-smoker; Translations: [Nonsmoker] 01-21-2018 Unclassified (18 sources) SPRAIN/STRAIN, CHONDROSTERNAL (848.42) Unclassified (20 sources) BMI 29.0-29.9,adult Unclassified (20 sources) Greater trochanteric bursitis, left Unclassified (20 sources) B12 deficiency Unclassified (20 sources) BMI 28.0-28.9,adult Unclassified (18 sources) Grieving Unclassified (18 sources) SHINGLES,NEED FOR PROPHYLACTIC VACCINATION AND INOCULATION AGAINST (V05.8) Unclassified (20 sources) Lesion-Unknown behavior (238.2) Unclassified (20 sources) Obstructive sleep apnea, adult Unclassified (18 sources) Breast mass, right Unclassified (18 sources) Pain, foot, left, chronic Unclassified (2 sources) Dementia in other diseases classified elsewhere, unspecified severity, with agitation; Translations: [Dementia in other diseases classified elsewhere, unspecified severity, with agitation] Onset: 10-25-2024 Urinary tract infections (20 sources) Acute cystitis; Translations: [Urinary tract infection, site not specified] Onset: 10-19-2024 01-21-2018 Episodic Past or Other Problems Problem Classification Problem Date Documented Da te Episodic/Chronic Abdominal pain (20 sources) Epigastric pain; Translations: [Epigastric pain] Resolved: 06-20-2013 06-20-2013 Episodic Allergic reactions (20 sources) Contact dermatitis; Translations: [Urticaria] Onset: 05-08-2011 Resolved: 06-20-2013 05-15-2011 Episodic Blindness and vision defects (18 sources) Visual disturbance; Translations: [Unspecified visual disturbance] Resolved: 06-20-2013 07-31-2015 Episodic Coronary atherosclerosis and other heart disease (20 sources) Coronary atherosclerosis and other heart disease Deficiency and other anemia (20 sources) Anemia, unspecified; Translations: [Anemia] 01-21-2018 Episodic External cause codes: Fall (18 sources) Fall; Translations: [Fall, initial encounter] Resolved: 05-07-2017 05-07-2017 Comment on above: on treadmil accident ly turn on while on Genitourinary symptoms and ill-defined conditions (20 sources) Abnormal urine; Translations: [Increased frequency of urination] Resolved: 01-11-2015 01-11-2015 Episodic Headache; including migraine (20 sources) Headache; Translations: [Headache] Resolved: 05-07-2017 05-07-2017 Episodic Immunizations and screening for infectious disease (20 sources) Need for prophylactic vaccination and inoculation against influenza Episodic Influenza (20 sources) Influenza Intestinal obstruction without hernia (20 sources) Unspecified intestinal obstruction; Translations: [Unspecified intestinal obstruction] Resolved: 06-17-2010 03-31-2013 Episodic Nausea and vomiting (20 sources) Nausea and vomiting; Translations: [Nausea and vomiting] Resolved: 06-20-2013 06-20-2013 Episodic Comment on above: vomited x 3 then dry heaves then chest pain Neoplasms of unspecified nature or uncertain behavior (20 sources) Neoplasm of uncertain behavior of connective and other soft tissue; Translations: [Neoplasm of uncertain behavior of skin] Resolved: 01-11-2015 01-21-2018 Episodic Comment on above: middle of forehead a william slight bleeding Nonmalignant breast conditions (18 sources) Unspecified lump in the right breast, unspecified quadrant; Translations: [Lump in right breast] Resolved: 05-07-2017 05-07-2017 Comment on above: screening mamm 11/27 Nonspecific chest pain (20 sources) Chest pain; Translations: [Chest pain] Resolved: 03-31-2013 03-31-2013 Episodic Comment on above: repeat heart cath de monstrated coronary arteries to be fine Nutritional deficiencies (18 sources) Cobalamin deficiency; Translations: [B12 deficiency] 01-21-2018 Episodic Comment on above: pt on once monthly s ched now - 04/28 level 148 now hovers btw 400-900 Open wounds of extremities (18 sources) Multiple and unspecified open wound of upper limb, complicated; Translations: [Arm/Upper Limb wound (884.1) (Renamed from Arm/Upper Limb)] Resolved: 03-31-2013 03-31-2013 Episodic Comment on above: old biopsy site Other aftercare (3 sources) Long-term (current) use of other medications; Translations: [Other nursing home (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 therapy] Onset: 07-08-2013 Resolved: 05-11-2015 07-08-2013 Episodic Other and unspecified benign neoplasm (18 sources) Lipoma of buttock; Translations: [Lipoma of buttock] Resolved: 01-04-2016 12-25-2016 Episodic Comment on above: i suspect --- i told her if she feels it again rto that same day and i will fit in to look at real quick Other and unspecified benign neoplasm (2 sources) Benign neoplasm of left breast; Translations: [Fibroadenoma of left breast] Resolved: 05-07-2017 05-07-2017 Episodic Comment on above: pt declined any [place] opinions Other and unspecified benign neoplasm (18 sources) Lipoma (clinical); Translations: [Lipoma] 01-21-2018 Episodic Comment on above: seen on biopsy time not sent by nicole because look like fat. bother her to surgeon. Other and unspecified benign neoplasm (16 sources) Fibroadenoma of left breast; Translations: [Fibroadenoma of left breast] Resolved: 05-07-2017 05-07-2017 Comment on above: pt declined any [place] opinions Other circulatory disease (20 sources) Easy bruising; Translations: [Easy bruising] 01-21-2018 Episodic Comment on above: stopped plavix and p laced her on asa-- cardio at [place]- he said no more plavix ever- rec duration is 2 yr -- so baby asa now -- hopefully will get better -- i think got acutely worse from being on heparin Other circulatory disease (18 sources) Elevated blood-pressure reading without diagnosis of hypertension; Translations: [Elevated blood-pressure reading without diagnosis of hypertension] Onset: 10-21-2011 Resolved: 11-29-2015 12-25-2016 Episodic Other connective tissue disease (18 sources) Bursitis; Translations: [Other bursitis disorders] 01-21-2018 Episodic Other connective tissue disease (2 sources) Pain in left foot; Translations: [Pain, foot, left, chronic] Resolved: 05-07-2017 05-07-2017 Episodic Other connective tissue disease (20 sources) Hematoma; Translations: [Hematoma] 01-21-2018 Episodic Other connective tissue disease (20 sources) Hand pain; Translations: [Pain of hand, unspecified laterality] Resolved: 06-20-2013 07-31-2015 Episodic Other connective tissue disease (20 sources) Pain in calf; Translations: [Calf pain] Resolved: 04-22-2013 06-20-2013 Episodic Comment on above: edema Other connective tissue disease (20 sources) Pain in toe; Translations: [Pain of toe, unspecified laterality] Resolved: 06-17-2010 08-07-2015 Episodic Other connective tissue disease (18 sources) Spasm; Translations: [Muscle spasm] Resolved: 03-31-2013 03-31-2013 Episodic Other connective tissue disease (2 sources) Pain in left thigh; Translations: [Pain of left thigh] Resolved: 01-21-2018 01-21-2018 Episodic Other connective tissue disease (18 sources) Trochanteric bursitis; Translations: [Greater trochanteric bursitis, left] 01-21-2018 Episodic Other connective tissue disease (16 sources) Pain in left lower limb; Translations: [Leg pain, left] 03-15-2019 Episodic Other connective tissue disease (16 sources) Swelling of limb; Translations: [Swelling of limb, left] 03-15-2019 Episodic Other connective tissue disease (16 sources) Chronic pain of left foot; Translations: [Pain, foot, left, chronic] Resolved: 05-07-2017 05-07-2017 Other connective tissue disease (16 sources) Pain of left thigh; Translations: [Pain of left thigh] Resolved: 01-21-2018 01-21-2018 Other eye disorders (18 sources) Pain in eye; Translations: [Acute pain in left eye (Renamed from Acute left eye pain)] Resolved: 12-01-2013 12-01-2013 Episodic Other female genital disorders (20 sources) Vaginal dryness; Translations: [Vaginal dryness] Resolved: 02-27-2009 08-07-2015 Episodic Other injuries and conditions due to external causes (20 sources) Laceration - injury; Translations: [Laceration] Resolved: 03-31-2013 03-31-2013 Episodic Comment on above: removal of laurel i n scalp Other injuries and conditions due to external causes (18 sources) Unspecified site of sprain and strain; Translations: [SPRAIN/STRAIN NOS] Resolved: 06-20-2013 06-20-2013 Episodic Other lower respiratory disease (20 sources) Dyspnea; Translations: [Shortness of breath] Onset: 12-30-2011 12-30-2011 Episodic Other lower respiratory disease (20 sources) Rib pain; Translations: [Rib pain on right side] 01-21-2018 Episodic Comment on above: related to treadmill fall. talk about pain. will give vicodin use sparingly as need watch for dizzy and fall. used inpast without issue. use cold compress will get out incentive spirometry to use. if worsen pain or fever or cough will call. Other lower respiratory disease (20 sources) Cough; Translations: [Cough] Resolved: 06-20-2013 06-20-2013 Episodic Comment on above: dry Other lower respiratory disease (18 sources) Dyspnea on exertion; Translations: [SOB (shortness of breath) on exertion] Resolved: 06-20-2013 07-27-2015 Episodic Other non-traumatic joint disorders (20 sources) Knee pain; Translations: [Knee pain] Resolved: 02-27-2009 03-31-2013 Episodic Comment on above: ABN X-RAY Other non-traumatic joint disorders (18 sources) Hip pain; Translations: [Acute pain of left hip] Resolved: 01-21-2018 01-21-2018 Episodic Other non-traumatic joint disorders (18 sources) Joint pain; Translations: [Pain in unspecified joint] Resolved: 02-27-2009 07-30-2015 Episodic Other screening for suspected conditions (not mental disorders or infectious disease) (20 sources) Imaging of thorax abnormal; Translations: [Breast neoplasm screening status] Resolved: 07-26-2015 11-29-2015 Episodic Other skin disorders (2 sources) Localized swelling, mass and lump, unspecified; Translations: [Localized swelling, mass and lump, unspecified] Resolved: 04-23-2012 04-23-2012 Episodic Other skin disorders (18 sources) Eruption; Translations: [Rash] Resolved: 06-20-2013 06-20-2013 Episodic Comment on above: worsening rash on br eastcontact dermatitis bilateral arms and hands, improved with solumedrol then returned x2 with severe itching worsening between breasts Was gardening put cell phone in bra Other upper respiratory disease (20 sources) Epistaxis; Translations: [Epistaxis] 01-21-2018 Episodic Comment on above: pt will call if recu rrs again-- will refer to ENT to see if any vessel needs cauterized Other upper respiratory disease (16 sources) Bleeding from nose; Translations: [Epistaxis] 03-15-2019 Episodic Comment on above: pt will call if recu rrs again-- will refer to ENT to see if any vessel needs cauterized Other upper respiratory infections (18 sources) Acute sinusitis; Translations: [Sinusitis, acute] 01-21-2018 Episodic Phlebitis; thrombophlebitis and thromboembolism (18 sources) Deep venous thrombosis Episodic Pneumonia (except that caused by tuberculosis or sexually transmitted disease) (18 sources) Pneumonia (except that caused by tuberculosis or sexually transmitted disease) Poisoning by other medications and drugs (18 sources) Adverse reaction to drug; Translations: [Adverse effect of unspecified drugs, medicaments and biological substances, initial encounter] 01-21-2018 Episodic Comment on above: allergic reaction to celebrex or contact dermatitiswas put on celebrex and with in 2 days Residual codes; unclassified (16 sources) Vaccination required; Translations: [Need for vaccination against Streptococcus pneumoniae] 12-25-2016 Episodic Residual codes; unclassified (20 sources) Family history of ischemic heart disease; Translations: [Family history of ischemic heart disease] 01-21-2018 Episodic Residual codes; unclassified (18 sources) Edema; Translations: [Edema extremities] Resolved: 04-22-2013 06-20-2013 Episodic Residual codes; unclassified (20 sources) Memory loss Episodic Residual codes; unclassified (18 sources) Needs influenza immunization; Translations: [Need for prophylactic vaccination and inoculation against influenza] 01-21-2018 Episodic Residual codes; unclassified (18 sources) Increased body mass index; Translations: [BMI 29.0-29.9,adult] 01-21-2018 Episodic Residual codes; unclassified (17 sources) Memory impairment; Translations: [Memory loss] 01-21-2018 Episodic Comment on above: last consult almost 6 yrs ago -- will refer again for comparison Residual codes; unclassified (13 sources) Bruises easily; Translations: [Easy bruising] 03-15-2019 Episodic Comment on above: stopped plavix and p laced her on asa-- cardio at [place]- he said no more plavix ever- rec duration is 2 yr -- so baby asa now -- hopefully will get better -- i think got acutely worse from being on heparin Residual codes; unclassified (16 sources) Requires vaccination; Translations: [Need for vaccination against Streptococcus pneumoniae] 12-25-2016 Spondylosis; intervertebral disc disorders; other back problems (20 sources) Neck pain; Translations: [Neck Pain] 01-21-2018 Episodic Sprains and strains (18 sources) Sprain of chondrosternal (joint); Translations: [SPRAIN/STRAIN, CHONDROSTERNAL] Resolved: 06-20-2013 06-20-2013 Episodic Unclassified (4 sources) Family history of ischemic heart disease and other diseases of the circulatory system; Translations: [FH: Hypertension] 11-05-2015 Episodic Unclassified (20 sources) Abnormal blood chemistry (790.6) Unclassified (20 sources) Patient encounter status; Translations: [Annual Medicare Phyiscal WITHOUT abnormal findings (Renamed from Encounter for general adult medical examination without abnormal findings)] Resolved: 06-20-2013 12-25-2016 Comment on above: requested by DR Honorio Tsang Unclassified (20 sources) 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) Unclassified (18 sources) Well Women Exam, No Pap (V72.31) (Mammo) (Renamed from Well Woman V72.31 (m,no p)) Unclassified (20 sources) SYMPTOMS INVOLVING URINARY SYSTEM; DYSURIA (788.1) Unclassified (18 sources) Deliveries (Parity); Translations: [Deliveries (Parity)] 01-21-2018 Comment on above: 1 Unclassified (20 sources) VISUAL DISTURBANCE, NOS (368.9) 01-21-2018 Unclassified (20 sources) Screening status; Translations: [Encounter for screening for malignant neoplasm of colon (Renamed from Special screening for malignant neoplasms, colon)] 01-21-2018 Unclassified (20 sources) ARTHRALGIAS 719.40 Unclassified (18 sources) Other bursitis disorders (727.3) Unclassified (20 sources) Unspecified Diagnosis Resolved: 06-20-2013 06-20-2013 Unclassified (20 sources) Pre-operative examination, unspecified (V72.84) Unclassified (18 sources) Pregnancies (); Translations: [Pregnancies ()] 01-21-2018 Comment on above: 3 Unclassified (18 sources) CERTAIN ADVERSE EFFECTS NOT ELSEWHERE CLASSIFIED; UNSPECIFIED ADVERSE EFFECT OF UNSPECIFIED DRUG, MEDICINAL AND BIOLOGICAL SUBSTANCE (995.20) Unclassified (20 sources) Rash (782.1) Unclassified (20 sources) Poison alize (692.6) Unclassified (18 sources) SPRAIN/STRAIN NOS (848.9) Unclassified (20 sources) Muscle spasm (728.85) Unclassified (18 sources) Severe sinus bradycardia (427.81) Unclassified (20 sources) Annual Medicare Physical (V70.0) Unclassified (20 sources) NEOP, UB, SOFT TISSUE (238.1) Unclassified (20 sources) Lipoma NOS (214.9) Unclassified (20 sources) Acute pain of left hip Unclassified (18 sources) Pain of left thigh Unclassified (18 sources) Fall, initial encounter Unclassified (18 sources) Rib pain on right side Unclassified (18 sources) Abortions/Miscarriage s; Translations: [Abortions/Miscarriag es] 01-21-2018 Comment on above: 2 Unclassified (18 sources) Arm/Upper Limb wound (884.1) (Renamed from Arm/Upper Limb (884.1)) Unclassified (18 sources) BMI 33.0-33.9, ADULT (V85.33) Unclassified (20 sources) Pre-operative examination; Translations: [Preprocedural examination done] 01-21-2018 Comment on above: requested by DR Honorio Tsang Unclassified (18 sources) Lipoma of buttock Unclassified (20 sources) 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) Unclassified (18 sources) Encounter for screening mammogram for breast cancer (Renamed from Encounter for screening mammogram for malignant neoplasm of breast) Unclassified (18 sources) Body mass index 30.0-30.9, adult (Renamed from Body mass index (BMI) of 30.0-30.9 in adult) Unclassified (20 sources) Edema extremities (782.3) Unclassified (20 sources) Abnormal Chest X-Ray (793.99) Unclassified (18 sources) Fibroadenoma of left breast Unclassified (20 sources) Basal cell adenocarcinoma Unclassified (18 sources) Acute pain in left eye (379.91) Unclassified (18 sources) Breast cancer screening Unclassified (18 sources) Sinusitis, acute Unclassified (20 sources) BMI 33.0-33.9,adult Unclassified (20 sources) Leg pain, left Unclassified (20 sources) Swelling of limb, left Unclassified (12 sources) Lymphedema, limb Unclassified (12 sources) Therapeutic drug monitoring Results Test Name Value Interpretation Reference Range Facility Potassium measurement (mass/ volume)Ordered By: Zeina Balbuena on 01-23-2025 Potassium (Unsp spec) [Mass/Vol] 3.8 mmol/L 3.3-5.1 [facility] Absolute lymphocyte countOrd ered By: Yesika Faust on 01-18-2025 Lymphocytes Auto (Unsp spec) [#/Vol] 1.51 10*3/uL 0.83-4.51 [facility] Absolute neutrophil countOrd ered By: Yesika Faust on 01-18-2025 Neutrophils (Bld) [#/Vol] 3.9 10*3/uL 2.0-7.7 [facility] Anion gap in Serum or Plasma Ordered By: Yesika Faust on 01-18-2025 Anion gap [Moles/Vol] 12 mmol/L 5-15 [facility] Automated lymphocyte count a s percentage of total leukocytesOrdered By: Yesika Faust on 01-18-2025 Lymphocytes/100 WBC Auto (Unsp spec) 23.4 % 19-41 [facility] BUN/creatinine ratioOrdered By: Yesika Faust on 01-18-2025 Urea nitrogen/Creatinine [Mass ratio] 36.2 mg/mg High 10-20 [facility] Basophil percentageOrdered B y: Yesika Faust on 01-18-2025 Basophils/100 WBC (Bld) 0.6 % 0-1 [facility] Bilirubin directOrdered By: Yesika Faust on 01-18-2025 Bilirubin.direct [Mass/Vol] 0.11 mg/dL 0.00-0.30 [facility] Bilirubin, totalOrdered By: Yesika Faust on 01-18-2025 Bilirubin [Mass/Vol] 0.25 mg/dL 0.00-1.30 [facility] Carbon dioxide, total [Moles /volume] in Central venous bloodOrdered By: Yesika Faust on 01-18-2025 CO2 [Moles/Vol] 22.7 mmol/L 21.0-32.0 [facility] Chloride assayOrdered By: Tad Faust on 01-18-2025 Chloride [Moles/Vol] 107 mmol/L 98-108 [facility] Eosinophil percentageOrdered By: Yesika Faust on 01-18-2025 Eosinophils/100 WBC (Bld) 6.1 % High 0-5 [facility] Erythrocyte distribution wid th ratioOrdered By: Yesika Faust on 01-18-2025 Erythrocyte distribution width (RBC) [Ratio] 13.4 % 11.6-14.6 [facility] Erythrocyte distribution wid th standard deviationOrdered By: Yesika Faust on 01-18-2025 Erythrocyte distribution width (RBC) [Ratio] 46.6 fl High 35.1-43.9 [facility] Glomerular filtration rate ( GFR) estimation/1.73 sq m using serum, plasma, or whole bOrdered By: Yesika Faust on 01-18-2025 GFR/1.73 sq M.predicted among non-blacks MDRD (S/P/Bld) [Vol rate/Area] 80 mL/min/{1.73_m2} >60 [facility] Comment on above: mL/min/1.73m2 CKD-EP I Creatinine Equation (2020) Hematocrit Auto (Bld) [Volum e fraction]Ordered By: ky Faust on 01-18-2025 Hematocrit (Bld) [Volume fraction] 42.1 % 37-47 [facility] Hemoglobin measurementOrdere d By: Yesika Faust on 01-18-2025 Hemoglobin (Bld) [Mass/Vol] 14.2 g/dL 12.0-15.0 [facility] Immature granulocytes/100 WB C Auto (Bld)Ordered By: Yesika Faust 01-18-2025 Immature granulocytes/100 WBC (Bld) 0.500 % 0.0-0.9 [facility] Comment on above: IG% - Immature Granu locytes (promyelocytes, myelocytes and metamyelocytes) > 1% indicates that a LEFT SHIFT is Present. Laboratory - Chemistry and C hemistry - challengeOrdered By: Yesika Faust on 01-18-2025 AST [Catalytic activity/Vol] 19 U/L <32 [facility] MCV (mean corpuscular volume ) determinationOrdered By: Yesika Faust 01-18-2025 MCV (RBC) [Entitic vol] 94.4 fL 81-99 [facility] Mean corpuscular hemoglobin (MCH) determinationOrdered By: Yesika Faust on 01-18-2025 MCH (RBC) [Entitic mass] 31.8 pg 27.0-32.0 [facility] Mean corpuscular hemoglobin concentration (MCHC) determinationOrdered By: Yesika Faust on 01-18-2025 MCHC (RBC) [Mass/Vol] 33.7 g/dL 32-36 [facility] Mean platelet volume determi nationOrdered By: Yesika Faust on 01-18-2025 Platelet mean volume (Bld) [Entitic vol] 11.6 fL 6.2-12.0 [facility] Monocyte percentageOrdered B y: Yesika Faust on 01-18-2025 Monocytes/100 WBC (Bld) 9.3 % 0-10 [facility] Neutrophil percentageOrdered By: Yesika Faust on 01-18-2025 Neutrophils/100 WBC (Bld) 60.1 % 47-70 [facility] Nucleated red blood cell per centageOrdered By: Yesika Faust on 01-18-2025 Nucleated RBC/100 WBC (Bld) [Ratio] 0 % 0-5 [facility] Platelet countOrdered By: Tad Faust on 01-18-2025 Platelet count TNP [facility] Comment on above: Test not performedPl ease note: For this sample, a platelet estimate is provided rather than a platelet count due to platelet clumping. Other parameters associated with this sample are not affected by platelet clumping. If a more accurate platelet count is required, a redraw of the patient will be necessary. Platelet estimateOrdered By: Yesika Faust on 01-18-2025 Platelets LM Ql (Bld) SLT DEC ADEQ [facility] Potassium measurement (mass/ volume)Ordered By: Yesika Faust on 01-18-2025 Potassium (Unsp spec) [Mass/Vol] 5.6 mmol/L High 3.3-5.1 [facility] RBC Auto (Bld) [#/Vol]Ordere d By: Yesika Faust on 01-18-2025 RBC (Bld) [#/Vol] 4.46 10*6/uL 4.2-5.4 [facility] Serum creatinine measurement (mass/volume)Ordered By: Yesika Faust on 01-18-2025 Creatinine [Mass/Vol] 0.73 mg/dL 0.70-1.20 [facility] Serum globulin measurementOr dered By: Yesika Faust on 01-18-2025 Globulin (S) [Mass/Vol] 2.5 g/dL 2.2-4.2 [facility] Serum glucose measurement (m ass/volume)Ordered By: Yesika Faust on 01-18-2025 Glucose [Mass/Vol] 84 mg/dL 70-99 [facility] Serum or plasma alanine vela otransferase (ALT) measurementOrdered By: Yesika Faust on 01-18-2025 ALT [Catalytic activity/Vol] 14 U/L <35 [facility] Serum or plasma albumin madi urement (mass/volume)Ordered By: Yesika Faust on 01-18-2025 Albumin [Mass/Vol] 3.7 g/dL 3.4-4.8 [facility] Serum or plasma alkaline mariaelena sphatase measurementOrdered By: Yesika Faust on 01-18-2025 ALP [Catalytic activity/Vol] 106 U/L High 35-104 [facility] Serum or plasma calcium madi urement (mass/volume)Ordered By: Yesika Faust on 01-18-2025 Calcium [Mass/Vol] 9.1 mg/dL 7.6-11.0 [facility] Serum or plasma urea nitroge n measurement (mass/volume)Ordered By: Yesika Faust on 01-18-2025 Urea nitrogen [Mass/Vol] 27 mg/dL High 4-19 [facility] Sodium levelOrdered By: Jed Faust on 01-18-2025 Sodium [Moles/Vol] 141 mmol/L 133-145 [facility] Total proteinOrdered By: Randall Faust on 01-18-2025 Protein [Mass/Vol] 6.1 g/dL 5.9-8.4 [facility] White blood cell (WBC) count Ordered By: Yesika Faust on 01-18-2025 WBC (Bld) [#/Vol] 6.4 10*3/uL 4.4-11.0 [facility] Bilirubin Test strip Ql (U)O rdered By: Yesika Faust on 01-14-2025 Bilirubin Ql (U) Negative Negative [facility] Ketones Test strip Ql (U)Ord ered By: Yesika Faust on 01-14-2025 Ketones Ql (U) Negative Negative [facility] Nitrite Test strip Ql (U)Ord ered By: Yesika Faust on 01-14-2025 Nitrite Ql (U) Negative Negative [facility] Protein Test strip Ql (U)Ord ered By: Yesika Faust on 01-14-2025 Protein Ql (U) 30 mg/dl High Negative [facility] Urine clarityOrdered By: Randall Faust on 01-14-2025 Clarity (U) Cloudy Clear [facility] Urine color determinationOrd ered By: Yesika Faust on 01-14-2025 Color (U) Yellow Yellow [facility] Urine cultureOrdered By: Randall Faust on 01-14-2025 Bacteria identified Cx Nom (U) Proteus mirabilis Abnormal [facility] Urine glucose detectionOrder ed By: Yesika Faust on 01-14-2025 Glucose Ql (U) Normal mg/dl Normal [facility] Urine leukocyte esterase det ection by dipstickOrdered By: Yesika Faust on 01-14-2025 Leukocyte esterase Test strip Ql (U) 500 /ul High Negative [facility] Urine pHOrdered By: Fernando Faust on 01-14-2025 pH (U) 7.0 [pH] 5.0 - 8.0 [facility] Urine specific gravity measu rementOrdered By: Yesika Faust on 01-14-2025 Specific gravity (U) [Rel density] 1.010 1.002-1.03 0 [facility] Urine urobilinogen measureme ntOrdered By: Yesika Faust on 01-14-2025 Urobilinogen Ql (U) Normal mg/dl Normal [facility] Absolute lymphocyte countOrd ered By: Yesika Faust on 01-12-2025 Lymphocytes Auto (Unsp spec) [#/Vol] 1.66 10*3/uL 0.83-4.51 [facility] Absolute neutrophil countOrd ered By: Yesika Faust on 01-12-2025 Neutrophils (Bld) [#/Vol] 3.2 10*3/uL 2.0-7.7 [facility] Anion gap in Serum or Plasma Ordered By: Yesika Faust on 01-12-2025 Anion gap [Moles/Vol] 13 mmol/L 5-15 [facility] Automated lymphocyte count a s percentage of total leukocytesOrdered By: Yesika Faust on 01-12-2025 Lymphocytes/100 WBC Auto (Unsp spec) 27.6 % 19-41 [facility] BUN/creatinine ratioOrdered By: Yesika Faust on 01-12-2025 Urea nitrogen/Creatinine [Mass ratio] 36.9 mg/mg High 10-20 [facility] Basophil percentageOrdered B y: Yesika Faust on 01-12-2025 Basophils/100 WBC (Bld) 0.8 % 0-1 [facility] Bilirubin directOrdered By: Yesika Faust on 01-12-2025 Bilirubin.direct [Mass/Vol] 0.11 mg/dL 0.00-0.30 [facility] Bilirubin, totalOrdered By: Yesika Faust on 01-12-2025 Bilirubin [Mass/Vol] 0.24 mg/dL 0.00-1.30 [facility] Carbon dioxide, total [Moles /volume] in Central venous bloodOrdered By: Yesika Faust on 01-12-2025 CO2 [Moles/Vol] 22.3 mmol/L 21.0-32.0 [facility] Chloride assayOrdered By: Tad Faust on 01-12-2025 Chloride [Moles/Vol] 106 mmol/L 98-108 [facility] Eosinophil percentageOrdered By: Yesika Faust on 01-12-2025 Eosinophils/100 WBC (Bld) 7.2 % High 0-5 [facility] Erythrocyte distribution wid th ratioOrdered By: Yesika Faust on 01-12-2025 Erythrocyte distribution width (RBC) [Ratio] 13.5 % 11.6-14.6 [facility] Erythrocyte distribution wid th standard deviationOrdered By: Yesika Faust on 01-12-2025 Erythrocyte distribution width (RBC) [Ratio] 47.9 fl High 35.1-43.9 [facility] Glomerular filtration rate ( GFR) estimation/1.73 sq m using serum, plasma, or whole bOrdered By: Yesika Faust on 01-12-2025 GFR/1.73 sq M.predicted among non-blacks MDRD (S/P/Bld) [Vol rate/Area] 84 mL/min/{1.73_m2} >60 [facility] Comment on above: mL/min/1.73m2 CKD-EP I Creatinine Equation (2020) Hematocrit Auto (Bld) [Volum e fraction]Ordered By: ky Faust on 01-12-2025 Hematocrit (Bld) [Volume fraction] 40.4 % 37-47 [facility] Hemoglobin measurementOrdere d By: Yesika Faust on 01-12-2025 Hemoglobin (Bld) [Mass/Vol] 13.3 g/dL 12.0-15.0 [facility] Immature granulocytes/100 WB C Auto (Bld)Ordered By: Yesika Faust on 01-12-2025 Immature granulocytes/100 WBC (Bld) 0.300 % 0.0-0.9 [facility] Comment on above: IG% - Immature Granu locytes (promyelocytes, myelocytes and metamyelocytes) > 1% indicates that a LEFT SHIFT is Present. Laboratory - Chemistry and C hemistry - challengeOrdered By: Yesika Faust on 01-12-2025 AST [Catalytic activity/Vol] 16 U/L <32 [facility] MCV (mean corpuscular volume ) determinationOrdered By: Yesika Faust on 01-12-2025 MCV (RBC) [Entitic vol] 97.1 fL 81-99 [facility] Mean corpuscular hemoglobin (MCH) determinationOrdered By: Yesika Faust on 01-12-2025 MCH (RBC) [Entitic mass] 32.0 pg 27.0-32.0 [facility] Mean corpuscular hemoglobin concentration (MCHC) determinationOrdered By: Yesika Faust on 01-12-2025 MCHC (RBC) [Mass/Vol] 32.9 g/dL 32-36 [facility] Mean platelet volume determi nationOrdered By: Yesika Faust on 01-12-2025 Platelet mean volume (Bld) [Entitic vol] 10.7 fL 6.2-12.0 [facility] Monocyte percentageOrdered B y: Yesika Faust on 01-12-2025 Monocytes/100 WBC (Bld) 10.8 % High 0-10 [facility] Neutrophil percentageOrdered By: Yesika Faust on 01-12-2025 Neutrophils/100 WBC (Bld) 53.3 % 47-70 [facility] Nucleated red blood cell per centageOrdered By: ky Faust on 01-12-2025 Nucleated RBC/100 WBC (Bld) [Ratio] 0 % 0-5 [facility] Platelet countOrdered By: Tad enriquetadenae Faust on 01-12-2025 Platelets (Bld) [#/Vol] 233 10*3/uL 150-450 [facility] Potassium measurement (mass/ volume)Ordered By: Yesika Faust on 01-12-2025 Potassium (Unsp spec) [Mass/Vol] 4.4 mmol/L 3.3-5.1 [facility] RBC Auto (Bld) [#/Vol]Ordere d By: Yesika Faust on 01-12-2025 RBC (Bld) [#/Vol] 4.16 10*6/uL Low 4.2-5.4 [facility] [place] Serum creatinine measurement (mass/volume)Ordered By: Yesika Faust on 01-12-2025 Creatinine [Mass/Vol] 0.71 mg/dL 0.70-1.20 [facility] Serum globulin measurementOr dered By: Yesika Faust on 01-12-2025 Globulin (S) [Mass/Vol] 2.2 g/dL 2.2-4.2 [facility] Serum glucose measurement (m ass/volume)Ordered By: Yesika Faust on 01-12-2025 Glucose [Mass/Vol] 95 mg/dL 70-99 [facility] Serum or plasma alanine vela otransferase (ALT) measurementOrdered By: Yesika Faust on 01-12-2025 ALT [Catalytic activity/Vol] 12 U/L <35 [facility] Serum or plasma albumin madi urement (mass/volume)Ordered By: Yesika Faust on 01-12-2025 Albumin [Mass/Vol] 3.5 g/dL 3.4-4.8 [facility] Serum or plasma alkaline mariaelena sphatase measurementOrdered By: Yesika Faust on 01-12-2025 ALP [Catalytic activity/Vol] 110 U/L High 35-104 [facility] Serum or plasma calcium madi urement (mass/volume)Ordered By: Yesika Faust on 01-12-2025 Calcium [Mass/Vol] 9.0 mg/dL 7.6-11.0 [facility] Serum or plasma urea nitroge n measurement (mass/volume)Ordered By: Yesika Faust on 01-12-2025 Urea nitrogen [Mass/Vol] 26 mg/dL High 4-19 [facility] Sodium levelOrdered By: Jed Faust on 01-12-2025 Sodium [Moles/Vol] 142 mmol/L 133-145 [facility] Total proteinOrdered By: Randall Faust on 01-12-2025 Protein [Mass/Vol] 5.7 g/dL Low 5.9-8.4 [facility] White blood cell (WBC) count Ordered By: Yesika Faust on 01-12-2025 WBC (Bld) [#/Vol] 6.0 10*3/uL 4.4-11.0 [facility] Absolute lymphocyte countOrd ered By: Jenamacarena Butterfieldkathieaida on 12-14-2024 Lymphocytes Auto (Unsp spec) [#/Vol] 2.70 10*3/uL 0.83-4.51 [facility] Absolute neutrophil countOrd ered By: Tadenriquetasaeidmacarena Butterfieldkathieaida on 12-14-2024 Neutrophils (Bld) [#/Vol] 4.2 10*3/uL 2.0-7.7 [facility] Anion gap in Serum or Plasma Ordered By: Yesika Butterfieldkathieaida on 12-14-2024 Anion gap [Moles/Vol] 12 mmol/L 5-15 [facility] Automated lymphocyte count a s percentage of total leukocytesOrdered By: Yesika Faust on 12-14-2024 Lymphocytes/100 WBC Auto (Unsp spec) 33.0 % 19-41 [facility] BUN/creatinine ratioOrdered By: enriquetamiddleburghmacarena Faust on 12-14-2024 Urea nitrogen/Creatinine [Mass ratio] 30.0 mg/mg High 10-20 [facility] Basophil percentageOrdered B y: Jedsaeidmacarena Butterfieldkathieaida on 12-14-2024 Basophils/100 WBC (Bld) 1.0 % 0-1 [facility] Carbon dioxide, total [Moles /volume] in Central venous bloodOrdered By: Yesika Butterfieldkathieaida on 12-14-2024 CO2 [Moles/Vol] 25.1 mmol/L 21.0-32.0 [facility] Chloride assayOrdered By: Tad enriquetadenae Faust on 12-14-2024 Chloride [Moles/Vol] 103 mmol/L 98-108 [facility] Eosinophil percentageOrdered By: Tadky Butterfieldkathieaida on 12-14-2024 Eosinophils/100 WBC (Bld) 4.4 % 0-5 [facility] Erythrocyte distribution wid th (RBC) [Ratio]Ordered By: Yesika Butterfieldkathieaida on 12-14-2024 Erythrocyte distribution width (RBC) [Entitic vol] 45.8 fL High 35.1-43.9 [facility] Erythrocyte distribution wid th ratioOrdered By: [facility] Fa[facility] on 12-14-2024 Erythrocyte distribution width (RBC) [Ratio] 13.2 % 11.6-14.6 [facility] Erythrocyte distribution wid th standard deviationOrdered By: Yesika Faust on 12-14-2024 Erythrocyte distribution width (RBC) [Ratio] 45.8 fl High 35.1-43.9 [facility] GFR/1.73 sq M.predicted giorgio g non-blacks MDRD (S/P/Bld) [Vol rate/Area]Ordered By: Yesika Faust on 12-14-2024 Estimated GFR (MDRD) Non-Af Amer 76 >60 [facility] Comment on above: mL/min/1.73m2 CKD-EP I Creatinine Equation (2020) Glomerular filtration rate ( GFR) estimation/1.73 sq m using serum, plasma, or whole bOrdered By: Yesika Faust on 12-14-2024 GFR/1.73 sq M.predicted among non-blacks MDRD (S/P/Bld) [Vol rate/Area] 76 mL/min/{1.73_m2} >60 [facility] Comment on above: mL/min/1.73m2 CKD-EP I Creatinine Equation (2020) Hematocrit Auto (Bld) [Volum e fraction]Ordered By: Yesika Faust on 12-14-2024 Hematocrit (Bld) [Volume fraction] 46.6 % 37-47 [facility] Hemoglobin measurementOrdere d By: Yesika Faust on 12-14-2024 Hemoglobin (Bld) [Mass/Vol] 15.2 g/dL High 12.0-15.0 [facility] Immature granulocytes/100 WB C Auto (Bld)Ordered By: Yesika Faust on 12-14-2024 Immature granulocytes/100 WBC (Bld) 0.500 % 0.0-0.9 [facility] Comment on above: IG% - Immature Granu locytes (promyelocytes, myelocytes and metamyelocytes) > 1% indicates that a LEFT SHIFT is Present. Lymphocytes Auto (Unsp spec) [#/Vol]Ordered By: Yesika Faust on 12-14-2024 Lymphocytes (Bld) [#/Vol] 2.70 10*3/uL 0.83-4.51 [facility] Lymphocytes/100 WBC Auto (Un sp spec)Ordered By: Yesika Faust on 12-14-2024 Lymphocytes/100 WBC (Bld) 33.0 % 19-41 [facility] MCV (mean corpuscular volume ) determinationOrdered By: Yesika Faust on 12-14-2024 MCV (RBC) [Entitic vol] 94.7 fL 81-99 [facility] Mean corpuscular hemoglobin (MCH) determinationOrdered By: Yesika Faust on 12-14-2024 MCH (RBC) [Entitic mass] 30.9 pg 27.0-32.0 [facility] Mean corpuscular hemoglobin concentration (MCHC) determinationOrdered By: Yesika Faust on 12-14-2024 MCHC (RBC) [Mass/Vol] 32.6 g/dL 32-36 [facility] Mean platelet volume determi nationOrdered By: Yesika Faust on 12-14-2024 Platelet mean volume (Bld) [Entitic vol] 10.6 fL 6.2-12.0 [facility] Monocyte percentageOrdered B y: Yesika Faust on 12-14-2024 Monocytes/100 WBC (Bld) 9.7 % 0-10 [facility] Neutrophil percentageOrdered By: Yesika Faust on 12-14-2024 Neutrophils/100 WBC (Bld) 51.4 % 47-70 [facility] Nucleated red blood cell per centageOrdered By: Yesika Faust on 12-14-2024 Nucleated RBC/100 WBC (Bld) [Ratio] 0 % 0-5 [facility] Platelet countOrdered By: Tad Faust on 12-14-2024 Platelets (Bld) [#/Vol] 268 10*3/uL 150-450 [facility] Potassium (Unsp spec) [Mass/ Vol]Ordered By: Yesika Faust on 12-14-2024 Potassium [Moles/Vol] 4.3 mmol/L 3.3-5.1 [facility] Potassium measurement (mass/ volume)Ordered By: Yesika Faust on 12-14-2024 Potassium (Unsp spec) [Mass/Vol] 4.3 mmol/L 3.3-5.1 [facility] RBC Auto (Bld) [#/Vol]Ordere d By: Yesika Faust on 12-14-2024 RBC (Bld) [#/Vol] 4.92 10*6/uL 4.2-5.4 [facility] [place] Serum creatinine measurement (mass/volume)Ordered By: Yesika Faust on 12-14-2024 Creatinine [Mass/Vol] 0.76 mg/dL 0.70-1.20 [facility] Serum glucose measurement (m ass/volume)Ordered By: Yesika Faust on 12-14-2024 Glucose [Mass/Vol] 105 mg/dL High 70-99 [facility] Serum or plasma calcium madi urement (mass/volume)Ordered By: Yesika Faust on 12-14-2024 Calcium [Mass/Vol] 9.7 mg/dL 7.6-11.0 [facility] Serum or plasma urea nitroge n measurement (mass/volume)Ordered By: Yesika Faust on 12-14-2024 Urea nitrogen [Mass/Vol] 23 mg/dL High 4-19 [facility] Sodium levelOrdered By: Jed jiangbert Christianne on 12-14-2024 Sodium [Moles/Vol] 141 mmol/L 133-145 [facility] White blood cell (WBC) count Ordered By: Yesika Faust on 12-14-2024 WBC (Bld) [#/Vol] 8.2 10*3/uL 4.4-11.0 [facility] Absolute lymphocyte countOrd ered By: Yesika Faust on 11-14-2024 Lymphocytes Auto (Unsp spec) [#/Vol] 2.15 10*3/uL 0.83-4.51 [facility] Absolute neutrophil countOrd ered By: Yesika Faust on 11-14-2024 Neutrophils (Bld) [#/Vol] 4.8 10*3/uL 2.0-7.7 [facility] Automated lymphocyte count a s percentage of total leukocytesOrdered By: Yesika Faust on 11-14-2024 Lymphocytes/100 WBC Auto (Unsp spec) 25.7 % 19-41 [facility] BUN/creatinine ratioOrdered By: Yesika Faust on 11-14-2024 Urea nitrogen/Creatinine [Mass ratio] 36.8 mg/mg High 10-20 [facility] Basophil percentageOrdered B y: Yesika Faust on 11-14-2024 Basophils/100 WBC (Bld) 1.0 % 0-1 [facility] Carbon dioxide measurementOr dered By: Yesika Faust on 11-14-2024 CO2 [Moles/Vol] 27.6 mmol/L 22.0-29.0 [facility] Chloride measurementOrdered By: [facility] Fa[facility] on 11-14-2024 Chloride [Moles/Vol] 101 mmol/L 96-108 [facility] Eosinophil percentageOrdered By: Yesika Faust on 11-14-2024 Eosinophils/100 WBC (Bld) 7.9 % High 0-5 [facility] Erythrocyte distribution wid th (RBC) [Ratio]Ordered By: Yesika Faust on 11-14-2024 Erythrocyte distribution width (RBC) [Entitic vol] 46.1 fL High 35.1-43.9 [facility] Erythrocyte distribution wid th ratioOrdered By: Jedmiddleburghmacarena Faust on 11-14-2024 Erythrocyte distribution width (RBC) [Ratio] 12.9 % 11.6-14.6 [facility] Erythrocyte distribution wid th standard deviationOrdered By: enriquetamiddleburghmacarena Faust on 11-14-2024 Erythrocyte distribution width (RBC) [Ratio] 46.1 fl High 35.1-43.9 [facility] GFR/1.73 sq M.predicted giorgio g non-blacks MDRD (S/P/Bld) [Vol rate/Area]Ordered By: Yesika Faust on 11-14-2024 Estimated GFR (MDRD) Non-Af Amer 86 >60 [facility] Comment on above: mL/min/1.73m2 CKD-EP I Creatinine Equation (2020) Glomerular filtration rate ( GFR) estimation/1.73 sq m using serum, plasma, or whole bOrdered By: Yesika Faust on 11-14-2024 GFR/1.73 sq M.predicted among non-blacks MDRD (S/P/Bld) [Vol rate/Area] 86 mL/min/{1.73_m2} >60 [facility] Comment on above: mL/min/1.73m2 CKD-EP I Creatinine Equation (2020) Hematocrit Auto (Bld) [Volum e fraction]Ordered By: Yesika Faust on 11-14-2024 Hematocrit (Bld) [Volume fraction] 46.9 % 37-47 [facility] Hemoglobin measurementOrdere d By: ky Faust on 11-14-2024 Hemoglobin (Bld) [Mass/Vol] 15.0 g/dL 12.0-15.0 [facility] Immature granulocytes/100 WB C Auto (Bld)Ordered By: ky Faust on 11-14-2024 Immature granulocytes/100 WBC (Bld) 0.500 % 0.0-0.9 [facility] Comment on above: IG% - Immature Granu locytes (promyelocytes, myelocytes and metamyelocytes) > 1% indicates that a LEFT SHIFT is Present. Lymphocytes Auto (Unsp spec) [#/Vol]Ordered By: enriquetamiddleburghmacarena Faust on 11-14-2024 Lymphocytes (Bld) [#/Vol] 2.15 10*3/uL 0.83-4.51 [facility] Lymphocytes/100 WBC Auto (Un sp spec)Ordered By: Yesika Faust on 11-14-2024 Lymphocytes/100 WBC (Bld) 25.7 % 19-41 [facility] MCV (mean corpuscular volume ) determinationOrdered By: Yesika Faust on 11-14-2024 MCV (RBC) [Entitic vol] 96.9 fL 81-99 [facility] Mean corpuscular hemoglobin (MCH) determinationOrdered By: ky Faust on 11-14-2024 MCH (RBC) [Entitic mass] 31.0 pg 27.0-32.0 [facility] Mean corpuscular hemoglobin concentration (MCHC) determinationOrdered By: ky Faust on 11-14-2024 MCHC (RBC) [Mass/Vol] 32.0 g/dL 32-36 [facility] Mean platelet volume determi nationOrdered By: Yesika Faust on 11-14-2024 Platelet mean volume (Bld) [Entitic vol] 10.4 fL 6.2-12.0 [facility] Monocyte percentageOrdered B y: Yesika Faust on 11-14-2024 Monocytes/100 WBC (Bld) 7.9 % 0-10 [facility] Neutrophil percentageOrdered By: Yesika Faust on 11-14-2024 Neutrophils/100 WBC (Bld) 57.0 % 47-70 [facility] Nucleated red blood cell per centageOrdered By: Yesika Faust on 11-14-2024 Nucleated RBC/100 WBC (Bld) [Ratio] 0 % 0-5 [facility] Platelet countOrdered By: Tad Faust on 11-14-2024 Platelets (Bld) [#/Vol] 269 10*3/uL 150-450 [facility] RBC Auto (Bld) [#/Vol]Ordere d By: Yesika Faust on 11-14-2024 RBC (Bld) [#/Vol] 4.84 10*6/uL 4.2-5.4 [facility] [place] Serum creatinine measurement (mass/volume)Ordered By: Yesika Faust on 11-14-2024 Creatinine [Mass/Vol] 0.65 mg/dL Low 0.70-1.20 [facility] Serum glucose measurement (m ass/volume)Ordered By: Yesika Faust on 11-14-2024 Glucose [Mass/Vol] 97 mg/dL 70-99 [facility] Serum or plasma anion gap de termination (moles/volume)Ordered By: Yesika Faust on 11-14-2024 Anion gap [Moles/Vol] 12 mmol/L 5-15 [facility] Serum or plasma calcium madi urement (mass/volume)Ordered By: Yesika Faust on 11-14-2024 Calcium [Mass/Vol] 9.4 mg/dL 7.6-11.0 [facility] Serum or plasma potassium me asurementOrdered By: Yesika Faust on 11-14-2024 Potassium [Moles/Vol] 4.3 mmol/L 3.3-5.1 [facility] Comment on above: Hemolysis present, R esults could be affected. Serum or plasma sodium measu rement (moles/volume)Ordered By: Yesika Faust on 11-14-2024 Sodium [Moles/Vol] 141 mmol/L 133-145 [facility] Serum or plasma urea nitroge n measurement (mass/volume)Ordered By: Yesika Faust on 11-14-2024 Urea nitrogen [Mass/Vol] 24 mg/dL High 4-19 [facility] White blood cell (WBC) count Ordered By: Yesika Faust on 11-14-2024 WBC (Bld) [#/Vol] 8.4 10*3/uL 4.4-11.0 [facility] Absolute lymphocyte countOrd ered By: Yesika Fauts on 10-17-2024 Lymphocytes Auto (Unsp spec) [#/Vol] 1.81 10*3/uL 0.83-4.51 [facility] Absolute neutrophil countOrd ered By: Yesika Faust on 10-17-2024 Neutrophils (Bld) [#/Vol] 3.3 10*3/uL 2.0-7.7 [facility] Automated lymphocyte count a s percentage of total leukocytesOrdered By: Yesika Faust on 10-17-2024 Lymphocytes/100 WBC Auto (Unsp spec) 26.5 % 19-41 [facility] Basophil percentageOrdered B y: Yesika Faust on 10-17-2024 Basophils/100 WBC (Bld) 0.7 % 0-1 [facility] Bilirubin directOrdered By: Yesika Faust on 10-17-2024 Bilirubin.direct [Mass/Vol] 0.09 mg/dL 0.00-0.30 [facility] Bilirubin, totalOrdered By: Yesika Faust on 10-17-2024 Bilirubin [Mass/Vol] 0.20 mg/dL 0.20-1.00 [facility] Comment on above: For patients on eltr ombopag therapy, use of Dimension [place] TBIL is not recommended. Blood urea nitrogen (BUN)/cr eatinine ratioOrdered By: Yesika Faust on 10-17-2024 Urea nitrogen/Creatinine [Mass ratio] 49.3 mg/mg High 10-20 [facility] Carbon dioxide measurementOr dered By: Yesika Faust on 10-17-2024 CO2 [Moles/Vol] 29.0 mmol/L 21.0-32.0 [facility] Chloride measurementOrdered By: Yesika Fuast on 10-17-2024 Chloride [Moles/Vol] 106 mmol/L 98-107 [facility] Eosinophil percentageOrdered By: Yesika Faust on 10-17-2024 Eosinophils/100 WBC (Bld) 14.6 % High 0-5 [facility] Erythrocyte distribution wid th (RBC) [Ratio]Ordered By: Yesika Faust on 10-17-2024 Erythrocyte distribution width (RBC) [Entitic vol] 46.3 fL High 35.1-43.9 [facility] Erythrocyte distribution wid th ratioOrdered By: ky Faust on 10-17-2024 Erythrocyte distribution width (RBC) [Ratio] 13.0 % 11.6-14.6 [facility] Erythrocyte distribution wid th standard deviationOrdered By: Jedmiddleburghmacarena Faust on 10-17-2024 Erythrocyte distribution width (RBC) [Ratio] 46.3 fl High 35.1-43.9 [facility] Estimated glomerular filtrat ion rate (GFR) AmericanOrdered By: Yesika Faust on 10-17-2024 Estimated GFR (MDRD) Amer 120 mL/min >60 [facility] Comment on above: GFR Calc Glomerular filtration rate ( GFR) estimationOrdered By: Yesika Faust on 10-17-2024 Estimated GFR (MDRD) Non-Af Amer 99 mL/min >60 [facility] Comment on above: Non- GFR Calc GFR/1.73 sq M.predicted among non-blacks MDRD (S/P/Bld) [Vol rate/Area] 99 mL/min/{1.73_m2} >60 [facility] Comment on above: Non- GFR Calc Glucose measurementOrdered B y: Yesika Scoutandreea on 10-17-2024 Glucose [Mass/Vol] 86 mg/dL 74-106 [facility] Hematocrit Auto (Bld) [Volum e fraction]Ordered By: Yesika Faust on 10-17-2024 Hematocrit (Bld) [Volume fraction] 41.4 % 37-47 [facility] Hemoglobin measurementOrdere d By: Yesika Faust on 10-17-2024 Hemoglobin (Bld) [Mass/Vol] 13.5 g/dL 12.0-15.0 [facility] Immature granulocytes/100 WB C Auto (Bld)Ordered By: Yesika Faust on 10-17-2024 Immature granulocytes/100 WBC (Bld) 0.400 % 0.0-0.9 [facility] Comment on above: IG% - Immature Granu locytes (promyelocytes, myelocytes and metamyelocytes) > 1% indicates that a LEFT SHIFT is Present. Laboratory - Chemistry and C hemistry - challengeOrdered By: Yesika Faust on 10-17-2024 AST [Catalytic activity/Vol] 12 U/L Low 15-37 [facility] Lymphocytes Auto (Unsp spec) [#/Vol]Ordered By: Yesika Faust on 10-17-2024 Lymphocytes (Bld) [#/Vol] 1.81 10*3/uL 0.83-4.51 [facility] Lymphocytes/100 WBC Auto (Un sp spec)Ordered By: Yesika Faust on 10-17-2024 Lymphocytes/100 WBC (Bld) 26.5 % 19-41 [facility] MCV (mean corpuscular volume ) determinationOrdered By: Yesika Faust on 10-17-2024 MCV (RBC) [Entitic vol] 98.6 fL 81-99 [facility] Mean corpuscular hemoglobin (MCH) determinationOrdered By: Yesika Faust on 10-17-2024 MCH (RBC) [Entitic mass] 32.1 pg High 27.0-32.0 [facility] Mean corpuscular hemoglobin concentration (MCHC) determinationOrdered By: Yesika Faust on 10-17-2024 MCHC (RBC) [Mass/Vol] 32.6 g/dL 32-36 [facility] Mean platelet volume determi nationOrdered By: Yesika Faust on 10-17-2024 Platelet mean volume (Bld) [Entitic vol] 10.6 fL 6.2-12.0 [facility] Monocyte percentageOrdered B y: Yesika Faust on 10-17-2024 Monocytes/100 WBC (Bld) 9.5 % 0-10 [facility] Neutrophil percentageOrdered By: Yesika Faust on 10-17-2024 Neutrophils/100 WBC (Bld) 48.3 % 47-70 [facility] Nucleated red blood cell per centageOrdered By: Yesika Faust on 10-17-2024 Nucleated RBC/100 WBC (Bld) [Ratio] 0 % 0-5 [facility] Platelet countOrdered By: Tad Faust on 10-17-2024 Platelets (Bld) [#/Vol] 232 10*3/uL 150-450 [facility] Potassium measurementOrdered By: Yesika Faust on 10-17-2024 Potassium [Moles/Vol] 4.0 mmol/L 3.5-5.1 [facility] RBC Auto (Bld) [#/Vol]Ordere d By: Yesika Faust on 10-17-2024 RBC (Bld) [#/Vol] 4.20 10*6/uL 4.2-5.4 [facility] [place] Serum anion gap measurementO rdered By: Yesika Faust on 10-17-2024 Anion gap [Moles/Vol] 5 mmol/L 5-15 [facility] Serum globulin measurementOr dered By: Yesika Faust on 10-17-2024 Globulin (S) [Mass/Vol] 3.2 g/dL 2.2-4.2 [facility] Serum or plasma alanine vela otransferase (ALT) measurementOrdered By: Yesika Faust on 10-17-2024 ALT [Catalytic activity/Vol] 19 U/L 13-56 [facility] Serum or plasma albumin madi urement (mass/volume)Ordered By: Yesika Faust on 10-17-2024 Albumin [Mass/Vol] 3.1 g/dL Low 3.2-5.0 [facility] Serum or plasma alkaline mariaelena sphatase measurementOrdered By: Tadky Butterfieldkathieaida on 10-17-2024 ALP [Catalytic activity/Vol] 108 U/L 45-117 [facility] Serum or plasma calcium madi urement (mass/volume)Ordered By: Yesika Faust on 10-17-2024 Calcium [Mass/Vol] 9.1 mg/dL 8.5-10.1 [facility] Serum or plasma creatinine m easurement (mass/volume)Ordered By: Yesika Faust on 10-17-2024 Creatinine [Mass/Vol] 0.61 mg/dL 0.55-1.02 [facility] [facility] Comment on above: The validity of the calculated GFR & GFRAA in patients over 70 years has not been determined. Clinical correlation is essential. Serum or plasma urea nitroge n measurement (mass/volume)Ordered By: Yesika Faust on 10-17-2024 Urea nitrogen [Mass/Vol] 30 mg/dL High 7-18 [facility] Sodium levelOrdered By: Jed denae Christianne on 10-17-2024 Sodium [Moles/Vol] 140 mmol/L 136-145 [facility] Total proteinOrdered By: Randall montsemacarena Faust on 10-17-2024 Protein [Mass/Vol] 6.3 g/dL Low 6.4-8.2 [facility] White blood cell (WBC) count Ordered By: Yesika Faust on 10-17-2024 WBC (Bld) [#/Vol] 6.8 10*3/uL 4.4-11.0 [facility] Bilirubin Test strip Ql (U)O rdered By: Yesika Faust on 10-14-2024 Bilirubin Ql (U) Negative Negative [facility] Epithelial cells.squamous LM Ql (Urine sed)Ordered By: Yesika Faust on 10-14-2024 Epithelial cells.squamous LM.HPF (Urine sed) [#/Area] 0 /[HPF] 5-10 [facility] Glucose Ql (U)Ordered By: Tad Faust on 10-14-2024 Urine Glucose (UA) Normal mg/dl Normal [facility] Ketones Test strip Ql (U)Ord ered By: Yesika Faust on 10-14-2024 Ketones Ql (U) Negative Negative [facility] Microscopic analysis of urin e for red blood cells (RBC)Ordered By: Yesika Faust on 10-14-2024 Microscopic analysis of urine for red blood cells (RBC) 0 SEEN /hpf 0-5 [facility] Urine RBC 0 SEEN /hpf 0-5 [facility] Mucus LM Ql (Urine sed)Order ed By: Yesika Faust on 10-14-2024 Mucus Ql (Urine sed) 0 SEEN /hpf [facility] Nitrite Test strip Ql (U)Ord ered By: Yesika Faust on 10-14-2024 Nitrite Ql (U) Positive High Negative [facility] Protein Test strip Ql (U)Ord ered By: Yesika Faust on 10-14-2024 Protein Ql (U) 15 mg/dl High Negative [facility] Squamous epithelial cells de tection in urine sediment by light microscopyOrdered By: Yesika Faust on 10-14-2024 Epithelial cells.squamous LM Ql (Urine sed) 0 SEEN /hpf 5-10 [facility] Triple phosphate crystals LM Ql (Urine sed)Ordered By: Yesika Faust on 10-14-2024 Urine Triple Phosphate Crystals 1+ /hpf [facility] Triple phosphate crystals de tection in urine sediment by light microscopyOrdered By: Yesika Faust on 10-14-2024 Triple phosphate crystals LM Ql (Urine sed) 1+ /hpf [facility] Urine blood detectionOrdered By: Yesika Faust on 10-14-2024 Urine Occult Blood Negative Negative [facility] Urine clarityOrdered By: Randall Faust on 10-14-2024 Clarity (U) Sl. Cloudy Clear [facility] Urine color determinationOrd ered By: Yesika Faust on 10-14-2024 Color (U) Yellow Yellow [facility] Urine cultureOrdered By: Randall Faust on 10-14-2024 Bacteria identified Cx Nom (U) Proteus mirabilis Abnormal [facility] Urine glucose detectionOrder ed By: Yesika Faust on 10-14-2024 Glucose Ql (U) Normal mg/dl Normal [facility] Urine leukocyte esterase det ection by dipstickOrdered By: Yesika Faust on 10-14-2024 Leukocyte esterase Test strip Ql (U) 25 /ul High Negative [facility] Urine pHOrdered By: Fernando Faust on 10-14-2024 pH (U) 9.0 [pH] 5.0 - 8.0 [facility] Urine sediment bacteria coun t by microscopy (number/high power field)Ordered By: Yesika Faust on 10-14-2024 Bacteria LM.HPF (Urine sed) [#/Area] 1 /[HPF] None Seen [facility] Urine specific gravity measu rementOrdered By: Yesika Faust on 10-14-2024 Specific gravity (U) [Rel density] 1.015 1.002-1.03 0 [facility] Urine urobilinogen measureme ntOrdered By: Yesika Faust on 10-14-2024 Urobilinogen Ql (U) Normal mg/dl Normal [facility] Urobilinogen Ql (U)Ordered B y: Yesika Faust on 10-14-2024 Urine Urobilinogen Normal mg/dl Normal [facility] White blood cell countOrdere d By: Yesika aFust on 10-14-2024 Urine WBC 0 SEEN /hpf 0-5 [facility] White blood cell count 0 SEEN /hpf 0-5 [facility] Absolute neutrophil countOrd ered By: Yesika Faust on 09-16-2024 Neutrophils (Bld) [#/Vol] 4.4 10*3/uL 2.0-7.7 [facility] Basophil percentageOrdered B y: Yesika Faust on 09-16-2024 Basophils/100 WBC (Bld) 0.7 % 0-1 [facility] Blood urea nitrogen (BUN)/cr eatinine ratioOrdered By: Yesika Faust on 09-16-2024 Urea nitrogen/Creatinine [Mass ratio] 40.5 mg/mg High 10-20 [facility] Carbon dioxide measurementOr dered By: Yesika Faust on 09-16-2024 CO2 [Moles/Vol] 28.0 mmol/L 21.0-32.0 [facility] Chloride measurementOrdered By: eYsika Faust on 09-16-2024 Chloride [Moles/Vol] 106 mmol/L 98-107 [facility] Eosinophil percentageOrdered By: Yesika Faust on 09-16-2024 Eosinophils/100 WBC (Bld) 3.0 % 0-5 [facility] Erythrocyte distribution wid th (RBC) [Ratio]Ordered By: Yesika Faust on 09-16-2024 Erythrocyte distribution width (RBC) [Entitic vol] 48.3 fL High 35.1-43.9 [facility] Erythrocyte distribution wid th ratioOrdered By: Yesika Faust on 09-16-2024 Erythrocyte distribution width (RBC) [Ratio] 13.2 % 11.6-14.6 [facility] Estimated glomerular filtrat ion rate (GFR) AmericanOrdered By: Yesika Faust on 09-16-2024 Estimated GFR (MDRD) Amer 162 mL/min >60 [facility] Comment on above: GFR Calc Glomerular filtration rate ( GFR) estimationOrdered By: Yesika Faust on 09-16-2024 Estimated GFR (MDRD) Non-Af Amer 134 mL/min >60 [facility] Comment on above: Non- GFR Calc Glucose measurementOrdered B y: Yesika Faust on 09-16-2024 Glucose [Mass/Vol] 89 mg/dL 74-106 [facility] Hematocrit Auto (Bld) [Volum e fraction]Ordered By: Yesika Faust on 09-16-2024 Hematocrit (Bld) [Volume fraction] 38.9 % 37-47 [facility] Hemoglobin measurementOrdere d By: Yesika Faust on 09-16-2024 Hemoglobin (Bld) [Mass/Vol] 12.4 g/dL 12.0-15.0 [facility] Immature granulocytes/100 WB C Auto (Bld)Ordered By: Yesika Faust on 09-16-2024 Immature granulocytes/100 WBC (Bld) 0.300 % 0.0-0.9 [facility] Comment on above: IG% - Immature Granu locytes (promyelocytes, myelocytes and metamyelocytes) > 1% indicates that a LEFT SHIFT is Present. Lymphocytes Auto (Unsp spec) [#/Vol]Ordered By: Yesika Faust on 09-16-2024 Lymphocytes (Bld) [#/Vol] 1.59 10*3/uL 0.83-4.51 [facility] Lymphocytes/100 WBC Auto (Un sp spec)Ordered By: Yesika Faust on 09-16-2024 Lymphocytes/100 WBC (Bld) 23.1 % 19-41 [facility] MCV (mean corpuscular volume ) determinationOrdered By: Yesika Faust on 09-16-2024 MCV (RBC) [Entitic vol] 98.7 fL 81-99 [facility] Mean corpuscular hemoglobin (MCH) determinationOrdered By: enriquetamiddleburghmacarena Faust on 09-16-2024 MCH (RBC) [Entitic mass] 31.5 pg 27.0-32.0 [facility] Mean corpuscular hemoglobin concentration (MCHC) determinationOrdered By: enriquetamiddleburghmacarena Faust on 09-16-2024 MCHC (RBC) [Mass/Vol] 31.9 g/dL Low 32-36 [facility] Mean platelet volume determi nationOrdered By: ky Faust on 09-16-2024 Platelet mean volume (Bld) [Entitic vol] 10.6 fL 6.2-12.0 [facility] Monocyte percentageOrdered B y: Yesika Faust on 09-16-2024 Monocytes/100 WBC (Bld) 9.6 % 0-10 [facility] Neutrophil percentageOrdered By: enriquetamiddleburghmacarena Faust on 09-16-2024 Neutrophils/100 WBC (Bld) 63.3 % 47-70 [facility] Nucleated red blood cell per centageOrdered By: Yesika Faust on 09-16-2024 Nucleated RBC/100 WBC (Bld) [Ratio] 0 % 0-5 [facility] Platelet countOrdered By: Tad Faust on 09-16-2024 Platelets (Bld) [#/Vol] 241 10*3/uL 150-450 [facility] Potassium measurementOrdered By: Yesika Faust on 09-16-2024 Potassium [Moles/Vol] 3.8 mmol/L 3.5-5.1 [facility] RBC Auto (Bld) [#/Vol]Ordere d By: Yesika Faust on 09-16-2024 RBC (Bld) [#/Vol] 3.94 10*6/uL Low 4.2-5.4 [facility] [place] Serum anion gap measurementO rdered By: Yesika Faust on 09-16-2024 Anion gap [Moles/Vol] 5 mmol/L 5-15 [facility] Serum or plasma calcium madi urement (mass/volume)Ordered By: Yesika Faust on 09-16-2024 Calcium [Mass/Vol] 8.8 mg/dL 8.5-10.1 [facility] Serum or plasma creatinine m easurement (mass/volume)Ordered By: Yesika Faust on 09-16-2024 Creatinine [Mass/Vol] 0.47 mg/dL Low 0.55-1.02 [facility] Comment on above: The validity of the calculated GFR & GFRAA in patients over 70 years has not been determined. Clinical correlation is essential. Serum or plasma urea nitroge n measurement (mass/volume)Ordered By: Yesika Faust on 09-16-2024 Urea nitrogen [Mass/Vol] 19 mg/dL High 7-18 [facility] Sodium levelOrdered By: Jed Faust on 09-16-2024 Sodium [Moles/Vol] 139 mmol/L 136-145 [facility] White blood cell (WBC) count Ordered By: Yesika Faust on 09-16-2024 WBC (Bld) [#/Vol] 6.9 10*3/uL 4.4-11.0 [facility] Absolute neutrophil countOrd ered By: Yesika Faust on 08-16-2024 Neutrophils (Bld) [#/Vol] 3.4 10*3/uL 2.0-7.7 [facility] Basophil percentageOrdered B y: Yesika Faust on 08-16-2024 Basophils/100 WBC (Bld) 0.7 % 0-1 [facility] Blood urea nitrogen (BUN)/cr eatinine ratioOrdered By: Yesika Faust on 08-16-2024 Urea nitrogen/Creatinine [Mass ratio] 35.8 mg/mg High 10-20 [facility] Carbon dioxide measurementOr dered By: Yesika Faust on 08-16-2024 CO2 [Moles/Vol] 28.0 mmol/L 21.0-32.0 [facility] Chloride measurementOrdered By: enriquetamiddleburghmacarena Faust on 08-16-2024 Chloride [Moles/Vol] 110 mmol/L High 98-107 [facility] Eosinophil percentageOrdered By: ky Faust on 08-16-2024 Eosinophils/100 WBC (Bld) 3.1 % 0-5 [facility] Erythrocyte distribution wid th (RBC) [Ratio]Ordered By: Yesika Faust on 08-16-2024 Erythrocyte distribution width (RBC) [Entitic vol] 50.8 fL High 35.1-43.9 [facility] Erythrocyte distribution wid th ratioOrdered By: Yesika Faust on 08-16-2024 Erythrocyte distribution width (RBC) [Ratio] 14.0 % 11.6-14.6 [facility] Estimated glomerular filtrat ion rate (GFR) AmericanOrdered By: Yesika Faust on 08-16-2024 Estimated GFR (MDRD) Amer 141 mL/min >60 [facility] Comment on above: GFR Calc Glomerular filtration rate ( GFR) estimationOrdered By: Yesika Faust on 08-16-2024 Estimated GFR (MDRD) Non-Af Amer 116 mL/min >60 [facility] Comment on above: Non- GFR Calc Glucose measurementOrdered B y: Yesika Faust on 08-16-2024 Glucose [Mass/Vol] 85 mg/dL 74-106 [facility] Hematocrit Auto (Bld) [Volum e fraction]Ordered By: Yesika Faust on 08-16-2024 Hematocrit (Bld) [Volume fraction] 41.2 % 37-47 [facility] Hemoglobin measurementOrdere d By: Yesika Faust on 08-16-2024 Hemoglobin (Bld) [Mass/Vol] 12.9 g/dL 12.0-15.0 [facility] Immature granulocytes/100 WB C Auto (Bld)Ordered By: ky Faust on 08-16-2024 Immature granulocytes/100 WBC (Bld) 0.300 % 0.0-0.9 [facility] Comment on above: IG% - Immature Granu locytes (promyelocytes, myelocytes and metamyelocytes) > 1% indicates that a LEFT SHIFT is Present. Lymphocytes Auto (Unsp spec) [#/Vol]Ordered By: Yesika Faust on 08-16-2024 Lymphocytes (Bld) [#/Vol] 1.61 10*3/uL 0.83-4.51 [facility] Lymphocytes/100 WBC Auto (Un sp spec)Ordered By: Yesika Faust on 08-16-2024 Lymphocytes/100 WBC (Bld) 27.4 % 19-41 [facility] MCV (mean corpuscular volume ) determinationOrdered By: Yesika Faust on 08-16-2024 MCV (RBC) [Entitic vol] 99.0 fL 81-99 [facility] Mean corpuscular hemoglobin (MCH) determinationOrdered By: Yesika Faust on 08-16-2024 MCH (RBC) [Entitic mass] 31.0 pg 27.0-32.0 [facility] Mean corpuscular hemoglobin concentration (MCHC) determinationOrdered By: Yesika Faust on 08-16-2024 MCHC (RBC) [Mass/Vol] 31.3 g/dL Low 32-36 [facility] Mean platelet volume determi nationOrdered By: Yesika Faust on 08-16-2024 Platelet mean volume (Bld) [Entitic vol] 10.8 fL 6.2-12.0 [facility] Monocyte percentageOrdered B y: Yesika Faust on 08-16-2024 Monocytes/100 WBC (Bld) 10.5 % High 0-10 [facility] Neutrophil percentageOrdered By: Jedsaeidmacarena Butterfieldkathieaida on 08-16-2024 Neutrophils/100 WBC (Bld) 58.0 % 47-70 [facility] Nucleated red blood cell per centageOrdered By: Jedsaeidmacarena Butterfieldkathieaida on 08-16-2024 Nucleated RBC/100 WBC (Bld) [Ratio] 0 % 0-5 [facility] Platelet countOrdered By: Tad shymacarena Butterfieldkathieaida on 08-16-2024 Platelets (Bld) [#/Vol] 242 10*3/uL 150-450 [facility] Potassium measurementOrdered By: Yesika Faust on 08-16-2024 Potassium [Moles/Vol] 3.9 mmol/L 3.5-5.1 [facility] RBC Auto (Bld) [#/Vol]Ordere d By: Jedsaeidmacarena Butterfieldkathieaida on 08-16-2024 RBC (Bld) [#/Vol] 4.16 10*6/uL Low 4.2-5.4 [facility] [place] Serum anion gap measurementO rdered By: Yesika Faust on 08-16-2024 Anion gap [Moles/Vol] 4 mmol/L Low 5-15 [facility] Serum or plasma calcium madi urement (mass/volume)Ordered By: Yesika Faust on 08-16-2024 Calcium [Mass/Vol] 8.9 mg/dL 8.5-10.1 [facility] Serum or plasma creatinine m easurement (mass/volume)Ordered By: Yesika Faust on 08-16-2024 Creatinine [Mass/Vol] 0.53 mg/dL Low 0.55-1.02 [facility] Comment on above: The validity of the calculated GFR & GFRAA in patients over 70 years has not been determined. Clinical correlation is essential. Serum or plasma urea nitroge n measurement (mass/volume)Ordered By: Yesika Faust on 08-16-2024 Urea nitrogen [Mass/Vol] 19 mg/dL High 7-18 [facility] Sodium levelOrdered By: Jed Faust on 08-16-2024 Sodium [Moles/Vol] 142 mmol/L 136-145 [facility] White blood cell (WBC) count Ordered By: Yesika Faust on 08-16-2024 WBC (Bld) [#/Vol] 5.9 10*3/uL 4.4-11.0 [facility] Absolute lymphocyte countOrd ered By: [facility] Butterfieldaida on 11-17-2023 Lymphocytes Auto (Unsp spec) [#/Vol] 1.64 10*3/uL 0.83-4.51 [facility] Automated lymphocyte count a s percentage of total leukocytesOrdered By: Yesika Faust on 11-17-2023 Lymphocytes/100 WBC Auto (Unsp spec) 26.6 % 19-41 [facility] Basophil percentageOrdered B y: Yesika Faust on 11-17-2023 Basophils/100 WBC (Bld) 0.6 % 0-1 [facility] Chloride [Moles/Vol] 109 mmol/L 98-107 [facility] Eosinophils/100 WBC (Bld) 1.8 % 0-5 [facility] Glucose [Mass/Vol] 91 mg/dL 74-106 [facility] Hemoglobin (Bld) [Mass/Vol] 12.9 g/dL 12.0-15.0 [facility] Monocytes/100 WBC (Bld) 9.4 % 0-10 [facility] Neutrophils (Bld) [#/Vol] 3.8 10*3/uL 2.0-7.7 [facility] Neutrophils/100 WBC (Bld) 61.1 % 47-70 [facility] Potassium [Moles/Vol] 3.8 mmol/L 3.5-5.1 [facility] Sodium [Moles/Vol] 140 mmol/L 136-145 [facility] WBC (Bld) [#/Vol] 6.2 10*3/uL 4.4-11.0 [facility] Determination of erythrocyte mean corpuscular volume (MCV)Ordered By: Yesika Faust on 11-17-2023 MCV (RBC) [Entitic vol] 91.8 fL 81-99 [facility] Erythrocyte distribution wid th ratioOrdered By: [facility] on 11-17-2023 Erythrocyte distribution width (RBC) [Ratio] 14.3 % 11.6-14.6 [facility] Erythrocyte distribution wid th standard deviationOrdered By: [facility] Fa[facility] on 11-17-2023 Erythrocyte distribution width (RBC) [Entitic vol] 48.0 fL 35.1-43.9 [facility] Hematocrit Auto (Bld) [Volum e fraction]Ordered By: [facility] on 11-17-2023 Hematocrit (Bld) [Volume fraction] 39.3 % 37-47 [facility] Immature granulocytes/100 WB C Auto (Bld)Ordered By: [facility] Christianne on 11-17-2023 Immature granulocytes/100 WBC (Bld) 0.500 % 0.0-0.9 [facility] Comment on above: IG% - Immature Granu locytes (promyelocytes, myelocytes and metamyelocytes) > 1% indicates that a LEFT SHIFT is Present. Laboratory - Chemistry and C hemistry - challengeOrdered By: Yesika Faust on 11-17-2023 CO2 [Moles/Vol] 28.0 mmol/L 21.0-32.0 [facility] Urea nitrogen/Creatinine [Mass ratio] 18.6 mg/mg 10-20 [facility] Laboratory - Hematology and Cell countsOrdered By: Yesika Faust on 11-17-2023 MCH (RBC) [Entitic mass] 30.1 pg 27.0-32.0 [facility] MCHC (RBC) [Mass/Vol] 32.8 g/dL 32-36 [facility] Nucleated RBC/100 WBC (Bld) [Ratio] 0 % 0-5 [facility] Platelet mean volume (Bld) [Entitic vol] 9.9 fL 6.2-12.0 [facility] Platelets (Bld) [#/Vol] 230 10*3/uL 150-450 [facility] No Panel InformationOrdered By: Yesika Faust on 11-17-2023 Estimated GFR (MDRD) Amer 94 mL/min >60 [facility] Comment on above: GFR Calc Estimated GFR (MDRD) Non-Af Amer 78 mL/min >60 [facility] Comment on above: Non- GFR Calc RBC Auto (Bld) [#/Vol]Ordere d By: Yesika Faust on 11-17-2023 RBC (Bld) [#/Vol] 4.28 10*6/uL 4.2-5.4 [facility] [place] Serum or plasma calcium madi urement (mass/volume)Ordered By: Yesika Faust on 11-17-2023 Calcium [Mass/Vol] 9.2 mg/dL 8.5-10.1 [facility] Serum or plasma creatinine m easurement (mass/volume)Ordered By: Yesika Faust on 11-17-2023 Creatinine [Mass/Vol] 0.75 mg/dL 0.55-1.02 [facility] Comment on above: The validity of the calculated GFR & GFRAA in patients over 70 years has not been determined. Clinical correlation is essential. Serum or plasma urea nitroge n measurement (mass/volume)Ordered By: Yesika Faust on 11-17-2023 Urea nitrogen [Mass/Vol] 14 mg/dL 7-18 [facility] Thin prep Papanicolaou smear with manual screeningOrdered By: Yesika Faust on 11-17-2023 Thin prep Papanicolaou smear with manual screening 3 5-15 [facility] Absolute lymphocyte countOrd ered By: Yesika Faust on 08-18-2023 Lymphocytes Auto (Unsp spec) [#/Vol] 1.67 10*3/uL 0.83-4.51 [facility] Basophil percentageOrdered B y: Yesika Faust on 08-18-2023 Basophils/100 WBC (Bld) 0.7 % 0-1 [facility] Chloride [Moles/Vol] 109 mmol/L 98-107 [facility] Eosinophils/100 WBC (Bld) 2.8 % 0-5 [facility] Glucose [Mass/Vol] 89 mg/dL 74-106 [facility] Neutrophils (Bld) [#/Vol] 3.1 10*3/uL 2.0-7.7 [facility] Neutrophils/100 WBC (Bld) 56.1 % 47-70 [facility] Potassium [Moles/Vol] 4.0 mmol/L 3.5-5.1 [facility] Sodium [Moles/Vol] 141 mmol/L 136-145 [facility] WBC (Bld) [#/Vol] 5.4 10*3/uL 4.4-11.0 [facility] Blood erythrocytes count (nu mber/volume)Ordered By: Yesika Faust on 08-18-2023 RBC (Bld) [#/Vol] 4.55 10*6/uL 4.2-5.4 [facility] [place] Blood hemoglobin measurement (mass/volume)Ordered By: Yesika Faust on 08-18-2023 Hemoglobin (Bld) [Mass/Vol] 12.9 g/dL 12.0-15.0 [facility] Blood lymphocytes/100 leukoc ytesOrdered By: Yesika Faust on 08-18-2023 Lymphocytes/100 WBC (Bld) 30.8 % 19-41 [facility] Blood monocytes/100 leukocyt esOrdered By: Yesika Faust on 08-18-2023 Monocytes/100 WBC (Bld) 9.4 % 0-10 [facility] Blood platelet mean volumeOr dered By: Yesika Faust on 08-18-2023 Platelet mean volume (Bld) [Entitic vol] 10.4 fL 6.2-12.0 [facility] Determination of erythrocyte mean corpuscular volume (MCV)Ordered By: Yesika Faust on 08-18-2023 MCV (RBC) [Entitic vol] 89.5 fL 81-99 [facility] Hematocrit Auto (Bld) [Volum e fraction]Ordered By: Yesika Faust on 08-18-2023 Hematocrit (Bld) [Volume fraction] 40.7 % 37-47 [facility] Laboratory - Chemistry and C hemistry - challengeOrdered By: Yesika Faust on 08-18-2023 CO2 [Moles/Vol] 29.0 mmol/L 21.0-32.0 [facility] Urea nitrogen/Creatinine [Mass ratio] 16.6 mg/mg 10-20 [facility] Laboratory - Hematology and Cell countsOrdered By: Yesika Faust on 08-18-2023 Erythrocyte distribution width (RBC) [Entitic vol] 45.5 fL 35.1-43.9 [facility] Erythrocyte distribution width (RBC) [Ratio] 13.9 % 11.6-14.6 [facility] Immature granulocytes/100 WBC (Bld) 0.200 % 0.0-0.9 [facility] Comment on above: IG% - Immature Granu locytes (promyelocytes, myelocytes and metamyelocytes) > 1% indicates that a LEFT SHIFT is Present. MCH (RBC) [Entitic mass] 28.4 pg 27.0-32.0 [facility] Nucleated RBC/100 WBC (Bld) [Ratio] 0 % 0-5 [facility] MCHC Auto (RBC) [Mass/Vol]Or dered By: Yesika Faust on 08-18-2023 MCHC (RBC) [Mass/Vol] 31.7 g/dL 32-36 [facility] No Panel InformationOrdered By: Yesika Faust on 08-18-2023 Estimated GFR (MDRD) Amer 109 mL/min >60 [facility] Comment on above: GFR Calc Estimated GFR (MDRD) Non-Af Amer 90 mL/min >60 [facility] Comment on above: Non- GFR Calc Platelets bldOrdered By: Randall Faust on 08-18-2023 Platelets (Bld) [#/Vol] 221 10*3/uL 150-450 [facility] Serum or plasma calcium madi urement (mass/volume)Ordered By: Yesika Faust on 08-18-2023 Calcium [Mass/Vol] 8.8 mg/dL 8.5-10.1 [facility] Serum or plasma creatinine m easurement (mass/volume)Ordered By: Yesika Faust on 08-18-2023 Creatinine [Mass/Vol] 0.66 mg/dL 0.55-1.02 [facility] Comment on above: The validity of the calculated GFR & GFRAA in patients over 70 years has not been determined. Clinical correlation is essential. Serum or plasma urea nitroge n measurement (mass/volume)Ordered By: Yesika Faust on 08-18-2023 Urea nitrogen [Mass/Vol] 11 mg/dL 7-18 [facility] Thin prep Papanicolaou smear with manual screeningOrdered By: Yesika Faust on 08-18-2023 Thin prep Papanicolaou smear with manual screening 3 5-15 [facility] Absolute lymphocyte countOrd ered By: ky Faust on 05-19-2023 Lymphocytes Auto (Unsp spec) [#/Vol] 1.86 10*3/uL 0.83-4.51 [facility] Basophil percentageOrdered B y: Yesika Faust on 05-19-2023 Basophils/100 WBC (Bld) 0.8 % 0-1 [facility] Chloride [Moles/Vol] 107 mmol/L 98-107 [facility] Eosinophils/100 WBC (Bld) 1.5 % 0-5 [facility] Glucose [Mass/Vol] 125 mg/dL 74-106 [facility] Comment on above: Fasting Glucose resu lt from 100 to 125 mg/dL suggests IMPAIRED HOMEOSTASIS per A.D.A. criteria. Neutrophils (Bld) [#/Vol] 3.4 10*3/uL 2.0-7.7 [facility] Neutrophils/100 WBC (Bld) 55.5 % 47-70 [facility] Potassium [Moles/Vol] 3.6 mmol/L 3.5-5.1 [facility] Sodium [Moles/Vol] 139 mmol/L 136-145 [facility] WBC (Bld) [#/Vol] 6.2 10*3/uL 4.4-11.0 [facility] Blood erythrocytes count (nu mber/volume)Ordered By: Yesika Faust on 05-19-2023 RBC (Bld) [#/Vol] 4.24 10*6/uL 4.2-5.4 [facility] [place] Blood hemoglobin measurement (mass/volume)Ordered By: Yesika Faust on 05-19-2023 Hemoglobin (Bld) [Mass/Vol] 11.7 g/dL 12.0-15.0 [facility] Blood lymphocytes/100 leukoc ytesOrdered By: [facility] Faust on 05-19-2023 Lymphocytes/100 WBC (Bld) 30.1 % 19-41 [facility] Blood monocytes/100 leukocyt esOrdered By: [facility] Fa[facility] on 05-19-2023 Monocytes/100 WBC (Bld) 11.8 % 0-10 [facility] Blood platelet mean volumeOr dered By: [facility] Fa[facility] on 05-19-2023 Platelet mean volume (Bld) [Entitic vol] 10.5 fL 6.2-12.0 [facility] Determination of erythrocyte mean corpuscular volume (MCV)Ordered By: [facility] Butterfieldaida on 05-19-2023 MCV (RBC) [Entitic vol] 90.3 fL 81-99 [facility] Hematocrit Auto (Bld) [Volum e fraction]Ordered By: [facility] Faust on 05-19-2023 Hematocrit (Bld) [Volume fraction] 38.3 % 37-47 [facility] Laboratory - Chemistry and C hemistry - challengeOrdered By: enriquetamiddleburghmacarena Faust on 05-19-2023 CO2 [Moles/Vol] 29.0 mmol/L 21.0-32.0 [facility] Urea nitrogen/Creatinine [Mass ratio] 21.6 mg/mg 10-20 [facility] Laboratory - Hematology and Cell countsOrdered By: [facility] Butterfieldaida on 05-19-2023 Erythrocyte distribution width (RBC) [Entitic vol] 50.2 fL 35.1-43.9 [facility] Erythrocyte distribution width (RBC) [Ratio] 15.2 % 11.6-14.6 [facility] Immature granulocytes/100 WBC (Bld) 0.300 % 0.0-0.9 [facility] Comment on above: IG% - Immature Granu locytes (promyelocytes, myelocytes and metamyelocytes) > 1% indicates that a LEFT SHIFT is Present. MCH (RBC) [Entitic mass] 27.6 pg 27.0-32.0 [facility] Nucleated RBC/100 WBC (Bld) [Ratio] 0 % 0-5 [facility] MCHC Auto (RBC) [Mass/Vol]Or dered By: Yesika Faust on 05-19-2023 MCHC (RBC) [Mass/Vol] 30.5 g/dL 32-36 [facility] No Panel InformationOrdered By: Yesika Faust on 05-19-2023 Estimated GFR (MDRD) Amer 74 mL/min >60 [facility] Comment on above: GFR Calc Estimated GFR (MDRD) Non-Af Amer 61 mL/min >60 [facility] Comment on above: Non- GFR Calc Platelets bldOrdered By: Randall Faust on 05-19-2023 Platelets (Bld) [#/Vol] 234 10*3/uL 150-450 [facility] Serum or plasma calcium madi urement (mass/volume)Ordered By: Yesika Faust on 05-19-2023 Calcium [Mass/Vol] 8.7 mg/dL 8.5-10.1 [facility] Serum or plasma creatinine m easurement (mass/volume)Ordered By: Yesika Faust on 05-19-2023 Creatinine [Mass/Vol] 0.92 mg/dL 0.55-1.02 [facility] Comment on above: The validity of the calculated GFR & GFRAA in patients over 70 years has not been determined. Clinical correlation is essential. Serum or plasma urea nitroge n measurement (mass/volume)Ordered By: Yesika Faust on 05-19-2023 Urea nitrogen [Mass/Vol] 20 mg/dL 7-18 [facility] Thin prep Papanicolaou smear with manual screeningOrdered By: Yesika Faust on 05-19-2023 Thin prep Papanicolaou smear with manual screening 3 5-15 [facility] Absolute lymphocyte countOrd ered By: Yesika Faust on 02-17-2023 Lymphocytes Auto (Unsp spec) [#/Vol] 1.67 10*3/uL 0.83-4.51 [facility] Basophil percentageOrdered B y: Yesika Faust on 02-17-2023 Basophils/100 WBC (Bld) 0.8 % 0-1 [facility] Chloride [Moles/Vol] 109 mmol/L 98-107 [facility] Eosinophils/100 WBC (Bld) 2.8 % 0-5 [facility] Glucose [Mass/Vol] 94 mg/dL 74-106 [facility] Neutrophils (Bld) [#/Vol] 3.9 10*3/uL 2.0-7.7 [facility] Neutrophils/100 WBC (Bld) 60.0 % 47-70 [facility] Potassium [Moles/Vol] 3.7 mmol/L 3.5-5.1 [facility] Sodium [Moles/Vol] 141 mmol/L 136-145 [facility] WBC (Bld) [#/Vol] 6.5 10*3/uL 4.4-11.0 [facility] Blood erythrocytes count (nu mber/volume)Ordered By: Yesika Faust on 02-17-2023 RBC (Bld) [#/Vol] 4.33 10*6/uL 4.2-5.4 [facility] [place] Blood hemoglobin measurement (mass/volume)Ordered By: Yesika Faust on 02-17-2023 Hemoglobin (Bld) [Mass/Vol] 11.4 g/dL 12.0-15.0 [facility] Blood lymphocytes/100 leukoc ytesOrdered By: Yesika Faust on 02-17-2023 Lymphocytes/100 WBC (Bld) 25.9 % 19-41 [facility] Blood monocytes/100 leukocyt esOrdered By: Yesika Faust on 02-17-2023 Monocytes/100 WBC (Bld) 10.2 % 0-10 [facility] Blood platelet mean volumeOr dered By: Yesika Faust on 02-17-2023 Platelet mean volume (Bld) [Entitic vol] 10.6 fL 6.2-12.0 [facility] Determination of erythrocyte mean corpuscular volume (MCV)Ordered By: Yesika Faust on 02-17-2023 MCV (RBC) [Entitic vol] 86.4 fL 81-99 [facility] Hematocrit Auto (Bld) [Volum e fraction]Ordered By: Yesika Faust on 02-17-2023 Hematocrit (Bld) [Volume fraction] 37.4 % 37-47 [facility] Laboratory - Chemistry and C hemistry - challengeOrdered By: Yesika Faust on 02-17-2023 CO2 [Moles/Vol] 28.0 mmol/L 21.0-32.0 [facility] Urea nitrogen/Creatinine [Mass ratio] 16.1 mg/mg 10-20 [facility] Laboratory - Hematology and Cell countsOrdered By: Yesika Faust on 02-17-2023 Erythrocyte distribution width (RBC) [Entitic vol] 56.0 fL 35.1-43.9 [facility] Erythrocyte distribution width (RBC) [Ratio] 17.5 % 11.6-14.6 [facility] Immature granulocytes/100 WBC (Bld) 0.300 % 0.0-0.9 [facility] Comment on above: IG% - Immature Granu locytes (promyelocytes, myelocytes and metamyelocytes) > 1% indicates that a LEFT SHIFT is Present. MCH (RBC) [Entitic mass] 26.3 pg 27.0-32.0 [facility] Nucleated RBC/100 WBC (Bld) [Ratio] 0 % 0-5 [facility] MCHC Auto (RBC) [Mass/Vol]Or dered By: Yesika Faust on 02-17-2023 MCHC (RBC) [Mass/Vol] 30.5 g/dL 32-36 [facility] No Panel InformationOrdered By: Yesika Faust on 02-17-2023 Estimated GFR (MDRD) Amer 106 mL/min >60 [facility] Comment on above: GFR Calc Estimated GFR (MDRD) Non-Af Amer 87 mL/min >60 [facility] Comment on above: Non- GFR Calc Platelets bldOrdered By: Randall Faust on 02-17-2023 Platelets (Bld) [#/Vol] 228 10*3/uL 150-450 [facility] Serum or plasma calcium madi urement (mass/volume)Ordered By: Yesika Faust on 02-17-2023 Calcium [Mass/Vol] 8.8 mg/dL 8.5-10.1 [facility] Serum or plasma creatinine m easurement (mass/volume)Ordered By: Yesika Faust on 02-17-2023 Creatinine [Mass/Vol] 0.68 mg/dL 0.55-1.02 [facility] Comment on above: The validity of the calculated GFR & GFRAA in patients over 70 years has not been determined. Clinical correlation is essential. Serum or plasma urea nitroge n measurement (mass/volume)Ordered By: Yesika Faust on 02-17-2023 Urea nitrogen [Mass/Vol] 11 mg/dL 7-18 [facility] Thin prep Papanicolaou smear with manual screeningOrdered By: Yesika Faust on 02-17-2023 Thin prep Papanicolaou smear with manual screening 4 5-15 [facility] Basophil percentageOrdered B y: Cl Tsang on 01-12-2023 Cholesterol [Mass/Vol] 112 mg/dL <[address] [facility] Comment on above: <200 mg/dL Desirable 200-240 mg/dL Borderline >240 mg/dL High Risk Triglyceride [Mass/Vol] 110 mg/dL <199 [facility] Comment on above: The drugs N-Acetylcy steine and Metamizole may falsely depress this assay.Serum Triglycerides Reference Interval Normal <150 mg/dL Borderline high 150 - 199 mg/dL High 200 - 499 mg/dL Very High > or = 500 mg/dL Serum or plasma cholesterol in HDL measurement (mass/volume)Ordered By: Cl Tsang on 01-12-2023 Cholesterol in HDL [Mass/Vol] 50 mg/dL >40 [facility] Comment on above: The drugs N-Acetylcy steine and Metamizole may falsely depress this assay. Reference Range HDL <40 mg/dL Low HDL Cholesterol HDL >or= 60 mg/dL High HDL Cholesterol Serum or plasma cholesterol in VLDL measurement (mass/volume)Ordered By: Cl Tsang on 01-12-2023 Cholesterol in VLDL [Mass/Vol] 22 mg/dL 5-40 [facility] Serum or plasma low density lipoprotein (LDL) cholesterol measurement (mass/volume)Ordered By: Cl Tsang on 01-12-2023 Cholesterol in LDL [Mass/Vol] 40 mg/dL 0-130 [facility] Basophil percentageOrdered B y: Yesika Faust on 11-18-2022 Chloride [Moles/Vol] 108 mmol/L 98-107 [facility] Glucose [Mass/Vol] 114 mg/dL 74-106 [facility] Comment on above: Fasting Glucose resu lt from 100 to 125 mg/dL suggests IMPAIRED HOMEOSTASIS per A.D.A. criteria. Potassium [Moles/Vol] 4.1 mmol/L 3.5-5.1 [facility] Sodium [Moles/Vol] 142 mmol/L 136-145 [facility] WBC (Bld) [#/Vol] 5.6 10*3/uL 4.4-11.0 [facility] Blood erythrocytes count (nu mber/volume)Ordered By: Yesika Faust on 11-18-2022 RBC (Bld) [#/Vol] 3.89 10*6/uL 4.2-5.4 [facility] [place] Blood hemoglobin measurement (mass/volume)Ordered By: Yesika Faust on 11-18-2022 Hemoglobin (Bld) [Mass/Vol] 10.5 g/dL 12.0-15.0 [facility] Blood platelet mean volumeOr dered By: Yesika Faust on 11-18-2022 Platelet mean volume (Bld) [Entitic vol] 10.7 fL 6.2-12.0 [facility] Determination of erythrocyte mean corpuscular volume (MCV)Ordered By: Yesika Faust on 11-18-2022 MCV (RBC) [Entitic vol] 88.4 fL 81-99 [facility] Hematocrit Auto (Bld) [Volum e fraction]Ordered By: Yesika Faust on 11-18-2022 Hematocrit (Bld) [Volume fraction] 34.4 % 37-47 [facility] Laboratory - Chemistry and C hemistry - challengeOrdered By: Yesika Faust on 11-18-2022 CO2 [Moles/Vol] 27.0 mmol/L 21.0-32.0 [facility] Urea nitrogen/Creatinine [Mass ratio] 18.9 mg/mg 10-20 [facility] Laboratory - Hematology and Cell countsOrdered By: Yesika Faust on 11-18-2022 Erythrocyte distribution width (RBC) [Entitic vol] 43.8 fL 35.1-43.9 [facility] Erythrocyte distribution width (RBC) [Ratio] 13.4 % 11.6-14.6 [facility] MCH (RBC) [Entitic mass] 27.0 pg 27.0-32.0 [facility] MCHC Auto (RBC) [Mass/Vol]Or dered By: Yesika Faust on 11-18-2022 MCHC (RBC) [Mass/Vol] 30.5 g/dL 32-36 [facility] No Panel InformationOrdered By: Yseika Faust on 11-18-2022 Estimated GFR (MDRD) Amer 115 mL/min >60 [facility] Comment on above: GFR Calc Estimated GFR (MDRD) Non-Af Amer 95 mL/min >60 [facility] Comment on above: Non- GFR Calc Platelets bldOrdered By: Randall Faust on 11-18-2022 Platelets (Bld) [#/Vol] 247 10*3/uL 150-450 [facility] Serum or plasma calcium madi urement (mass/volume)Ordered By: Yesika Faust on 11-18-2022 Calcium [Mass/Vol] 9.1 mg/dL 8.5-10.1 [facility] Serum or plasma creatinine m easurement (mass/volume)Ordered By: Yesika Faust on 11-18-2022 Creatinine [Mass/Vol] 0.64 mg/dL 0.55-1.02 [facility] Comment on above: The validity of the calculated GFR & GFRAA in patients over 70 years has not been determined. Clinical correlation is essential. Serum or plasma urea nitroge n measurement (mass/volume)Ordered By: Yesika Faust on 11-18-2022 Urea nitrogen [Mass/Vol] 12 mg/dL 7-18 [facility] Thin prep Papanicolaou smear with manual screeningOrdered By: Yesika Faust on 11-18-2022 Thin prep Papanicolaou smear with manual screening 7 5-15 [facility] Absolute lymphocyte countOrd ered By: Yesika Faust on 08-19-2022 Lymphocytes Auto (Unsp spec) [#/Vol] 1.60 10*3/uL 0.83-4.51 [facility] Basophil percentageOrdered B y: Yesika Faust on 08-19-2022 Basophils/100 WBC (Bld) 0.4 % 0-1 [facility] Chloride [Moles/Vol] 105 mmol/L 98-107 [facility] Eosinophils/100 WBC (Bld) 0.2 % 0-5 [facility] Glucose [Mass/Vol] 96 mg/dL 74-106 [facility] Neutrophils (Bld) [#/Vol] 3.3 10*3/uL 2.0-7.7 [facility] Neutrophils/100 WBC (Bld) 59.4 % 47-70 [facility] Potassium [Moles/Vol] 4.0 mmol/L 3.5-5.1 [facility] Sodium [Moles/Vol] 141 mmol/L 136-145 [facility] WBC (Bld) [#/Vol] 5.6 10*3/uL 4.4-11.0 [facility] Blood erythrocytes count (nu mber/volume)Ordered By: Yesika Faust on 08-19-2022 RBC (Bld) [#/Vol] 4.44 10*6/uL 4.2-5.4 [facility] [place] Blood hemoglobin measurement (mass/volume)Ordered By: Yesika Faust on 08-19-2022 Hemoglobin (Bld) [Mass/Vol] 13.0 g/dL 12.0-15.0 [facility] Blood lymphocytes/100 leukoc ytesOrdered By: Yesika Faust on 08-19-2022 Lymphocytes/100 WBC (Bld) 28.8 % 19-41 [facility] Blood monocytes/100 leukocyt esOrdered By: Yesika Faust on 08-19-2022 Monocytes/100 WBC (Bld) 11.0 % 0-10 [facility] Blood platelet mean volumeOr dered By: Yesika Faust on 08-19-2022 Platelet mean volume (Bld) [Entitic vol] 10.7 fL 6.2-12.0 [facility] Determination of erythrocyte mean corpuscular volume (MCV)Ordered By: Yesika Faust on 08-19-2022 MCV (RBC) [Entitic vol] 93.0 fL 81-99 [facility] Hematocrit Auto (Bld) [Volum e fraction]Ordered By: Yesika Faust on 08-19-2022 Hematocrit (Bld) [Volume fraction] 41.3 % 37-47 [facility] Laboratory - Chemistry and C hemistry - challengeOrdered By: Yesika Faust on 08-19-2022 CO2 [Moles/Vol] 29.0 mmol/L 21.0-32.0 [facility] Urea nitrogen/Creatinine [Mass ratio] 19.4 mg/mg 10-20 [facility] Laboratory - Hematology and Cell countsOrdered By: Yesika Faust on 08-19-2022 Erythrocyte distribution width (RBC) [Entitic vol] 44.3 fL 35.1-43.9 [facility] Erythrocyte distribution width (RBC) [Ratio] 12.9 % 11.6-14.6 [facility] Immature granulocytes/100 WBC (Bld) 0.200 % 0.0-0.9 [facility] Comment on above: IG% - Immature Granu locytes (promyelocytes, myelocytes and metamyelocytes) > 1% indicates that a LEFT SHIFT is Present. MCH (RBC) [Entitic mass] 29.3 pg 27.0-32.0 [facility] Nucleated RBC/100 WBC (Bld) [Ratio] 0 % 0-5 [facility] MCHC Auto (RBC) [Mass/Vol]Or dered By: Yesika Faust on 08-19-2022 MCHC (RBC) [Mass/Vol] 31.5 g/dL 32-36 [facility] No Panel InformationOrdered By: Yesika Faust on 08-19-2022 Estimated GFR (MDRD) Amer 99 mL/min >60 [facility] Comment on above: GFR Calc Estimated GFR (MDRD) Non-Af Amer 82 mL/min >60 [facility] Comment on above: Non- GFR Calc Platelets bldOrdered By: Randall valarie Christianne on 08-19-2022 Platelets (Bld) [#/Vol] 216 10*3/uL 150-450 [facility] Serum or plasma calcium madi urement (mass/volume)Ordered By: Yesika Faust on 08-19-2022 Calcium [Mass/Vol] 9.4 mg/dL 8.5-10.1 [facility] Serum or plasma creatinine m easurement (mass/volume)Ordered By: Yesika Faust on 08-19-2022 Creatinine [Mass/Vol] 0.72 mg/dL 0.55-1.02 [facility] Comment on above: The validity of the calculated GFR & GFRAA in patients over 70 years has not been determined. Clinical correlation is essential. Serum or plasma urea nitroge n measurement (mass/volume)Ordered By: Jedsaeidmacarena Faust on 08-19-2022 Urea nitrogen [Mass/Vol] 14 mg/dL 7-18 [facility] Thin prep Papanicolaou smear with manual screeningOrdered By: Jedsaeidmacarena Faust on 08-19-2022 Thin prep Papanicolaou smear with manual screening 7 5-15 [facility] Absolute lymphocyte counton 05-20-2022 Lymphocytes Auto (Unsp spec) [#/Vol] 1.88 10*3/uL 0.83-4.51 [facility] Work Phone: Basophil percentageon 2021 Basophils/100 WBC (Bld) 0.7 % 0-1 [facility] Work Phone: Chloride [Moles/Vol] 111 mmol/L 98-107 [facility] Work Phone: Eosinophils/100 WBC (Bld) 4.0 % 0-5 [facility] Work Phone: Glucose [Mass/Vol] 94 mg/dL 74-106 [facility] Work Phone: Neutrophils (Bld) [#/Vol] 3.3 10*3/uL 2.0-7.7 [facility] Work Phone: Neutrophils/100 WBC (Bld) 55.6 % 47-70 [facility] Work Phone: Potassium [Moles/Vol] 4.1 mmol/L 3.5-5.1 [facility] Work Phone: Sodium [Moles/Vol] 139 mmol/L 136-145 [facility] Work Phone: WBC (Bld) [#/Vol] 6.0 10*3/uL 4.4-11.0 [facility] Work Phone: Blood erythrocytes count (nu mber/volume)on 05-20-2022 RBC (Bld) [#/Vol] 4.01 10*6/uL 4.2-5.4 [facility] [place] Work Phone: Blood hemoglobin measurement (mass/volume)on 05-20-2022 Hemoglobin (Bld) [Mass/Vol] 13.0 g/dL 12.0-15.0 [facility] Work Phone: Blood lymphocytes/100 leukoc yteson 05-20-2022 Lymphocytes/100 WBC (Bld) 31.5 % 19-41 [facility] Work Phone: Blood monocytes/100 leukocyt eson 05-20-2022 Monocytes/100 WBC (Bld) 8.0 % 0-10 [facility] Work Phone: Blood platelet mean volumeon 05-20-2022 Platelet mean volume (Bld) [Entitic vol] 10.3 fL 6.2-12.0 [facility] Work Phone: Determination of erythrocyte mean corpuscular volume (MCV)on 05-20-2022 MCV (RBC) [Entitic vol] 99.3 fL 81-99 [facility] Work Phone: Hematocrit Auto (Bld) [Volum e fraction]on 05-20-2022 Hematocrit (Bld) [Volume fraction] 39.8 % 37-47 [facility] Work Phone: Laboratory - Chemistry and C hemistry - challengeon 05-20-2022 CO2 [Moles/Vol] 17.0 mmol/L 21.0-32.0 [facility] Work Phone: Urea nitrogen/Creatinine [Mass ratio] 13.2 mg/mg 10-20 [facility] Work Phone: Laboratory - Hematology and Cell countson 05-20-2022 Erythrocyte distribution width (RBC) [Entitic vol] 52.0 fL 35.1-43.9 [facility] Work Phone: Erythrocyte distribution width (RBC) [Ratio] 14.4 % 11.6-14.6 [facility] Work Phone: Immature granulocytes/100 WBC (Bld) 0.200 % 0.0-0.9 [facility] Work Phone: Comment on above: IG% - Immature Granu locytes (promyelocytes, myelocytes and metamyelocytes) > 1% indicates that a LEFT SHIFT is Present. MCH (RBC) [Entitic mass] 32.4 pg 27.0-32.0 [facility] Work Phone: Nucleated RBC/100 WBC (Bld) [Ratio] 0 % 0-5 [facility] Work Phone: MCHC Auto (RBC) [Mass/Vol]on 05-20-2022 MCHC (RBC) [Mass/Vol] 32.7 g/dL 32-36 [facility] Work Phone: No Panel Informationon 05-20 Estimated GFR (MDRD) Amer 94 mL/min >60 [facility] Work Phone: Comment on above: GFR Calc Estimated GFR (MDRD) Non-Af Amer 77 mL/min >60 [facility] Work Phone: Comment on above: Non- GFR Calc Platelets bldon 05-20-2022 Platelets (Bld) [#/Vol] 188 10*3/uL 150-450 [facility] Work Phone: Serum or plasma calcium madi urement (mass/volume)on 05-20-2022 Calcium [Mass/Vol] 9.5 mg/dL 8.5-10.1 [facility] Work Phone: Serum or plasma creatinine m easurement (mass/volume)on 05-20-2022 Creatinine [Mass/Vol] 0.76 mg/dL 0.55-1.02 [facility] Work Phone: Comment on above: The validity of the calculated GFR & GFRAA in patients over 70 years has not been determined. Clinical correlation is essential. Serum or plasma urea nitroge n measurement (mass/volume)on 05-20-2022 Urea nitrogen [Mass/Vol] 10 mg/dL 7-18 [facility] Work Phone: Thin prep Papanicolaou smear with manual screeningon 05-20-2022 Thin prep Papanicolaou smear with manual screening 11 5-15 [facility] Work Phone: Bilirubin Test strip Ql (U)o n 03-07-2022 Bilirubin Ql (U) Negative Negative [facility] Work Phone: Ketones Test strip Ql (U)on 03-07-2022 Ketones Ql (U) Negative Negative [facility] Work Phone: Nitrite Test strip Ql (U)on 03-07-2022 Nitrite Ql (U) Positive Negative [facility] Work Phone: Protein Test strip Ql (U)on 03-07-2022 Protein Ql (U) Negative Negative [facility] Work Phone: Urine blood detectionon 02-13 RBC Ql (U) 25 /ul Negative [facility] Work Phone: Urine clarityon 03-07-2022 Clarity (U) Clear Clear [facility] Work Phone: Urine color determinationon 03-07-2022 Color (U) Yellow Yellow [facility] Work Phone: Urine glucose detectionon Glucose Ql (U) Normal mg/dl Normal [facility] Work Phone: Urine leukocyte esterase det ection by dipstickon 03-07-2022 Leukocyte esterase Test strip Ql (U) 500 /ul Negative [facility] Work Phone: Urine pHon 03-07-2022 pH (U) 6.5 [pH] 5.0 - 8.0 [facility] Work Phone: Urine specific gravity measu rementon 03-07-2022 Specific gravity (U) [Rel density] 1.010 1.002-1.03 0 [facility] Work Phone: Urobilinogen Auto test strip Ql (U)on 03-07-2022 Urobilinogen Ql (U) Normal mg/dl Normal [facility] Work Phone: Basophil percentageon 2021 Cholesterol [Mass/Vol] 117 mg/dL <[address] [facility] Work Phone: Comment on above: <200 mg/dL Desirable 200-240 mg/dL Borderline >240 mg/dL High Risk Triglyceride [Mass/Vol] 118 mg/dL [facility] Work Phone: Comment on above: The drugs N-Acetylcy steine and Metamizole may falsely depress this assay.Serum Triglycerides Reference Interval Normal <150 mg/dL Borderline high 150 - 199 mg/dL High 200 - 499 mg/dL Very High > or = 500 mg/dL Serum or plasma cholesterol in HDL measurement (mass/volume)on 01-13-2022 Cholesterol in HDL [Mass/Vol] 44 mg/dL [facility] Work Phone: Comment on above: The drugs N-Acetylcy steine and Metamizole may falsely depress this assay. Reference Range HDL <40 mg/dL Low HDL Cholesterol HDL >or= 60 mg/dL High HDL Cholesterol Serum or plasma cholesterol in VLDL measurement (mass/volume)on 01-13-2022 Cholesterol in VLDL [Mass/Vol] 24 mg/dL 5-40 [facility] Work Phone: Serum or plasma low density lipoprotein (LDL) cholesterol measurement (mass/volume)on 01-13-2022 Cholesterol in LDL [Mass/Vol] 49 mg/dL 0-130 [facility] Work Phone: Absolute lymphocyte counton 11-12-2021 Lymphocytes Auto (Unsp spec) [#/Vol] 1.48 10*3/uL 0.83-4.51 [facility] [facility] Work Phone: Basophil percentageon 2021 Basophils/100 WBC (Bld) 0.5 % 0-1 [facility] Work Phone: Chloride [Moles/Vol] 108 mmol/L 98-107 [facility] Work Phone: Eosinophils/100 WBC (Bld) 1.4 % 0-5 [facility] Work Phone: Glucose [Mass/Vol] 105 mg/dL 74-106 [facility] Work Phone: Comment on above: Fasting Glucose resu lt from 100 to 125 mg/dL suggests IMPAIRED HOMEOSTASIS per A.D.A. criteria. Neutrophils (Bld) [#/Vol] 3.5 10*3/uL 2.0-7.7 [facility] Work Phone: Neutrophils/100 WBC (Bld) 61.7 % 47-70 [facility] Work Phone: Potassium [Moles/Vol] 3.8 mmol/L 3.5-5.1 [facility] Work Phone: Sodium [Moles/Vol] 139 mmol/L 136-145 [facility] Work Phone: WBC (Bld) [#/Vol] 5.7 10*3/uL 4.4-11.0 [facility] Work Phone: Blood erythrocytes count (nu mber/volume)on 11-12-2021 RBC (Bld) [#/Vol] 4.44 10*6/uL 4.2-5.4 [facility] Work Phone: Blood hemoglobin measurement (mass/volume)on 11-12-2021 Hemoglobin (Bld) [Mass/Vol] 13.7 g/dL 12.0-15.0 [facility] Work Phone: Blood lymphocytes/100 leukoc yteson 11-12-2021 Lymphocytes/100 WBC (Bld) 26.0 % 19-41 [facility] Work Phone: Blood monocytes/100 leukocyt eson 11-12-2021 Monocytes/100 WBC (Bld) 10.0 % 0-10 [facility] Work Phone: Blood platelet mean volumeon 11-12-2021 Platelet mean volume (Bld) [Entitic vol] 10.2 fL 6.2-12.0 [facility] Work Phone: Determination of erythrocyte mean corpuscular volume (MCV)on 11-12-2021 MCV (RBC) [Entitic vol] 89.4 fL 81-99 [facility] Work Phone: Hematocrit Auto (Bld) [Volum e fraction]on 11-12-2021 Hematocrit (Bld) [Volume fraction] 39.7 % 37-47 [facility] Work Phone: Laboratory - Chemistry and C hemistry - challengeon 11-12-2021 CO2 [Moles/Vol] 29.0 mmol/L 21.0-32.0 [facility] Work Phone: Urea nitrogen/Creatinine [Mass ratio] 16.9 mg/mg 10-20 [facility] Work Phone: Laboratory - Hematology and Cell countson 11-12-2021 Erythrocyte distribution width (RBC) [Entitic vol] 41.8 fL 35.1-43.9 [facility] Work Phone: Erythrocyte distribution width (RBC) [Ratio] 12.8 % 11.6-14.6 [facility] Work Phone: Immature granulocytes/100 WBC (Bld) 0.400 % 0.0-0.9 [facility] Work Phone: Comment on above: IG% - Immature Granu locytes (promyelocytes, myelocytes and metamyelocytes) > 1% indicates that a LEFT SHIFT is Present. MCH (RBC) [Entitic mass] 30.9 pg 27.0-32.0 [facility] Work Phone: Nucleated RBC/100 WBC (Bld) [Ratio] 0 % 0-5 [facility] Work Phone: MCHC Auto (RBC) [Mass/Vol]on 11-12-2021 MCHC (RBC) [Mass/Vol] 34.5 g/dL 32-36 [facility] Work Phone: No Panel Informationon 11-12 Estimated GFR (MDRD) Amer 101 mL/min >60 [facility] Work Phone: Comment on above: GFR Calc Estimated GFR (MDRD) Non-Af Amer 84 mL/min >60 [facility] Work Phone: Comment on above: Non- GFR Calc Platelets bldon 11-12-2021 Platelets (Bld) [#/Vol] 194 10*3/uL 150-450 [facility] Work Phone: Serum or plasma calcium madi urement (mass/volume)on 11-12-2021 Calcium [Mass/Vol] 9.5 mg/dL 8.5-10.1 [facility] Work Phone: Serum or plasma creatinine m easurement (mass/volume)on 11-12-2021 Creatinine [Mass/Vol] 0.71 mg/dL 0.55-1.02 [facility] Work Phone: Comment on above: The validity of the calculated GFR & GFRAA in patients over 70 years has not been determined. Clinical correlation is essential. Serum or plasma urea nitroge n measurement (mass/volume)on 11-12-2021 Urea nitrogen [Mass/Vol] 12 mg/dL 7-18 [facility] Work Phone: Thin prep Papanicolaou smear with manual screeningon 11-12-2021 Thin prep Papanicolaou smear with manual screening 2 5-15 [facility] Work Phone: XR SPINE CERVICAL 1 VIEWon 1 XR SPINE CERVICAL 1 VIEW ORIGINAL XR SPINE CERVICAL 1 VIEW CLINICAL STATEMENT: neck pain. COMPARISON: CT cervical spine 06/03/2019 FINDINGS: Position and alignment of the fused C4 and 5 vertebral segments is satisfactory and stable. The hardware appears intact. No complications or significant new findings noted. IMPRESSION: As above Interpreted By: Bob Ralph Preliminary Report By: Bob Ralph Electronically Signed By: Bob Ralph Dictated Date: 07/04/2019 10:20:30 AM Prelim Date: 07/04/2019 10:20:30 AM Sign Date: 07/04/2019 10:22:47 AM Ordering Provider:Dc Mota [facility] ([place]) .GFRon 06-09-2019 GFR >60 [facility] ([place]) Comment on above: Result Comment: GFR Population mean for , Non- Americans Ages 20-29 = 116 mL/min/1.73 sq.m. Ages 30-39 = 107 mL/min/1.73 sq.m. Ages 40-49 = 99 mL/min/1.73 sq.m. Ages 50-59 = 93 mL/min/1.73 sq.m. Ages 60-69 = 85 mL/min/1.73 sq.m. Ages 70+ = 75 mL/min/1.73 sq.m. Chronic Kidney Disease: Less than 60 mL/min/1.73 square meters End Stage Renal Disease: Less than 15 mL/min/1.73 square meters Performed By: #### C BC, DIFF, MORPH, BMP, GFR ####[place] [address] GFR Non- >60 [facility] ([place]) Comment on above: Result Comment: GFR Population mean for , Non- Americans Ages 20-29 = 116 mL/min/1.73 sq.m. Ages 30-39 = 107 mL/min/1.73 sq.m. Ages 40-49 = 99 mL/min/1.73 sq.m. Ages 50-59 = 93 mL/min/1.73 sq.m. Ages 60-69 = 85 mL/min/1.73 sq.m. Ages 70+ = 75 mL/min/1.73 sq.m. Chronic Kidney Disease: Less than 60 mL/min/1.73 square meters End Stage Renal Disease: Less than 15 mL/min/1.73 square meters Performed By: #### C BC, DIFF, MORPH, BMP, GFR ####[address] [place] [address] .Manual Diffon 06-09-2019 Basophil %, Manual 1.0 % Normal 0.0-2.5 [facility] ([place]) Comment on above: Performed By: #### C BC, DIFF, MORPH, BMP, GFR ####[place] [address] Basophil, Abs Manual 0.08 10 3/mcL Normal 0.00-0.27 A [facility] ([place]) Comment on above: Performed By: #### C BC, DIFF, MORPH, BMP, GFR ####[place] [address] Cells Counted 100 Normal [facility] ([place]) Comment on above: Performed By: #### C BC, DIFF, MORPH, BMP, GFR ####[place] [address] Eosinophil %, Manual 2.0 % Normal 0.0-6.0 [facility] ([place]) Comment on above: Performed By: #### C BC, DIFF, MORPH, BMP, GFR ####[place] [address] Eosinophil, Abs Manual 0.16 10 3/mcL Normal 0.00-0.65 [facility] ([place]) Comment on above: Performed By: #### C BC, DIFF, MORPH, BMP, GFR ####[place] [address] Lymphocyte %, Manual 9.0 % Low 20.0-40.0 [facility] ([place]) Comment on above: Performed By: #### C BC, DIFF, MORPH, BMP, GFR ####[place] [address] Lymphocyte, Abs Manual 0.72 10 3/mcL Low 0.90-4.32 [facility] ([place]) Comment on above: Performed By: #### C BC, DIFF, MORPH, BMP, GFR ####[place] [address] Monocyte %, Manual 6.0 % Normal 2.0-13.0 [facility] ([place]) Comment on above: Performed By: #### C BC, DIFF, MORPH, BMP, GFR ####[place] [address] Monocyte, Abs Manual 0.48 10 3/mcL Normal 0.09-1.40 [facility] ([place]) Comment on above: Performed By: #### C BC, DIFF, MORPH, BMP, GFR ####[place] [address] Myelocyte 1.0 % Normal [facility] ([place]) Comment on above: Performed By: #### C BC, DIFF, MORPH, BMP, GFR ####[place] [address] Neutrophil %, Manual 81.0 % High 50.0-75.0 [facility] ([place]) Comment on above: Performed By: #### C BC, DIFF, MORPH, BMP, GFR ####[place] [address] Neutrophil, Abs Manual 6.48 10 3/mcL Normal 2.25-8.10 [facility] ([place]) Comment on above: Performed By: #### C BC, DIFF, MORPH, BMP, GFR ####[place] [address] .Morphon 06-09-2019 Platelets (Bld) [#/Vol] Normal Normal [facility] ([place]) Comment on above: Performed By: #### C BC, DIFF, MORPH, BMP, GFR ####[place] [address] Polychrom Slight Normal [facility] ([place]) Comment on above: Performed By: #### C BC, DIFF, MORPH, BMP, GFR ####[place] [address] BMPon 06-09-2019 Creatinine [Mass/Vol] 0.75 mg/dL Normal 0.50-1.20 [facility] ([place]) Comment on above: Performed By: #### C BC, DIFF, MORPH, BMP, GFR ####[place] [address] Urea nitrogen/Creatinine [Mass ratio] 18.7 ratio Normal 10.0-22.0 [facility] ([place]) Comment on above: Performed By: #### C BC, DIFF, MORPH, BMP, GFR ####[address] [address] Calcium [Mass/Vol] 8.2 mg/dL Low 8.4-10.1 [facility] ([place]) Comment on above: Performed By: #### C BC, DIFF, MORPH, BMP, GFR ####[address] [address] Chloride [Moles/Vol] 106 mmol/L Normal 98-110 [facility] ([place]) Comment on above: Performed By: #### C BC, DIFF, MORPH, BMP, GFR ####[address] [address] CO2 [Moles/Vol] 18 mmol/L Low 22-32 [facility] ([place]) Comment on above: Performed By: #### C BC, DIFF, MORPH, BMP, GFR ####[address] [address] Electrolyte Balance 16.0 mEq/L High 4.0-15.0 [facility] ([place]) Comment on above: Performed By: #### C BC, DIFF, MORPH, BMP, GFR ####[address] [address] Glucose [Mass/Vol] 109 mg/dL Normal 82-115 [facility] ([place]) Comment on above: Performed By: #### C BC, DIFF, MORPH, BMP, GFR ####[address] [address] Potassium [Moles/Vol] 3.8 mmol/L Normal 3.5-5.0 [facility] ([place]) Comment on above: Performed By: #### C BC, DIFF, MORPH, BMP, GFR ####[address] [address] Sodium [Moles/Vol] 140 mmol/L Normal 136-145 [facility] ([place]) Comment on above: Performed By: #### C BC, DIFF, MORPH, BMP, GFR ####[address] [address] Urea nitrogen [Mass/Vol] 14.0 mg/dL Normal 8.0-22.0 [facility] ([place]) Comment on above: Performed By: #### C BC, DIFF, MORPH, BMP, GFR ####[address] [address] CBCon 06-09-2019 Platelet mean volume (Bld) [Entitic vol] 8.6 fL Normal 6.6-10.5 [facility] ([place]) Comment on above: Performed By: #### C BC, DIFF, MORPH, BMP, GFR ####[address] [address] Platelets (Bld) [#/Vol] 229 10 3/mcL Normal 150-450 [facility] ([place]) Comment on above: Performed By: #### C BC, DIFF, MORPH, BMP, GFR ####[address] [address] WBC (Bld) [#/Vol] 8.00 10 3/mcL Normal 4.50-10.80 [facility] ([place]) Comment on above: Performed By: #### C BC, DIFF, MORPH, BMP, GFR ####[place] [address] Erythrocyte distribution width (RBC) [Ratio] 13.8 % Normal 11.5-15.5 [facility] ([place]) Comment on above: Performed By: #### C BC, DIFF, MORPH, BMP, GFR ####[address] [address] Hematocrit (Bld) [Volume fraction] 26.6 % Low 34.0-46.0 [facility] ([place]) Comment on above: Performed By: #### C BC, DIFF, MORPH, BMP, GFR ####[address] [address] Hemoglobin (Bld) [Mass/Vol] 9.1 G/dL Low 12.0-16.0 [facility] ([place]) Comment on above: Performed By: #### C BC, DIFF, MORPH, BMP, GFR ####[address] [address] MCH (RBC) [Entitic mass] 30.1 pg Normal 27.0-33.0 [facility] ([place]) Comment on above: Performed By: #### C BC, DIFF, MORPH, BMP, GFR ####[address] [address] MCHC (RBC) [Mass/Vol] 34.3 G/dL Normal 32.0-36.0 [facility] ([place] Comment on above: Performed By: #### C BC, DIFF, MORPH, BMP, GFR ####[place] [address] MCV (RBC) [Entitic vol] 87.9 fL Normal 80.0-99.0 [facility] ([place]) Comment on above: Performed By: #### C BC, DIFF, MORPH, BMP, GFR ####[place] [address] RBC (Bld) [#/Vol] 3.03 10 6/mcL Low 4.10-5.30 [facility] ([place]) Comment on above: Performed By: #### C BC, DIFF, MORPH, BMP, GFR ####[place] [address] XR CHEST 2 VIEWSon 9 XR CHEST 2 VIEWS ORIGINAL XR CHEST 2 VIEWS CLINICAL STATEMENT: Abnormal breath sounds. COMPARISON: Chest x-ray on 06/08/2019 FINDINGS: The LEFT chest tube has been removed since the prior day. There is no visible pneumothorax. The heart size is normal. Small LEFT pleural effusion and small LEFT basilar lung consolidation are present. There is decreased size of LEFT basilar infiltrate compared with chest x-ray on the prior day. RIGHT lung is well-expanded with no acute abnormality. IMPRESSION: Decreased size of LEFT basilar infiltrate with small LEFT pleural effusion. No pneumothorax after removal of LEFT chest tube. Interpreted By: Daryl Dominguez MD Preliminary Report By: Daryl Dominguez MD Electronically Signed By: Daryl Dominguez MD Dictated Date: 06/09/2019 7:19:53 AM Prelim Date: 06/09/2019 7:19:53 AM Sign Date: 06/09/2019 7:22:18 AM Normal [facility] ([place]) .GFRon 06-08-2019 GFR >60 Normal [facility] ([place]) Comment on above: Result Comment: GFR Population mean for , Non- Americans Ages 20-29 = 116 mL/min/1.73 sq.m. Ages 30-39 = 107 mL/min/1.73 sq.m. Ages 40-49 = 99 mL/min/1.73 sq.m. Ages 50-59 = 93 mL/min/1.73 sq.m. Ages 60-69 = 85 mL/min/1.73 sq.m. Ages 70+ = 75 mL/min/1.73 sq.m. Chronic Kidney Disease: Less than 60 mL/min/1.73 square meters End Stage Renal Disease: Less than 15 mL/min/1.73 square meters Performed By: #### B MP, GFR ####[address] [address] GFR Non- >60 Normal [facility] ([place]) Comment on above: Result Comment: GFR Population mean for , Non- Americans Ages 20-29 = 116 mL/min/1.73 sq.m. Ages 30-39 = 107 mL/min/1.73 sq.m. Ages 40-49 = 99 mL/min/1.73 sq.m. Ages 50-59 = 93 mL/min/1.73 sq.m. Ages 60-69 = 85 mL/min/1.73 sq.m. Ages 70+ = 75 mL/min/1.73 sq.m. Chronic Kidney Disease: Less than 60 mL/min/1.73 square meters End Stage Renal Disease: Less than 15 mL/min/1.73 square meters Performed By: #### B MP, GFR ####[address] [address] BMPon 06-08-2019 Creatinine [Mass/Vol] 0.60 mg/dL Normal 0.50-1.20 [facility] ([place]) Comment on above: Performed By: #### B MP, GFR ####[address] [address] Urea nitrogen/Creatinine [Mass ratio] 21.7 ratio Normal 10.0-22.0 [facility] ([place]) Comment on above: Performed By: #### B MP, GFR ####[address] [address] Calcium [Mass/Vol] 7.9 mg/dL Low 8.4-10.1 [facility] ([place]) Comment on above: Performed By: #### B MP, GFR ####[address] [address] Chloride [Moles/Vol] 107 mmol/L Normal 98-110 [facility] ([place]) Comment on above: Performed By: #### B MP, GFR ####[address] [address] CO2 [Moles/Vol] 28 mmol/L Normal 22-32 [facility] ([place]) Comment on above: Performed By: #### B MP, GFR ####[address] [address] Electrolyte Balance 8.0 mEq/L Normal 4.0-15.0 [facility] ([place] Comment on above: Performed By: #### B MP, GFR ####[address] [address] Glucose [Mass/Vol] 115 mg/dL Normal 82-115 [facility] ([place]) Comment on above: Performed By: #### B MP, GFR ####[address] [address] Potassium [Moles/Vol] 3.7 mmol/L Normal 3.5-5.0 [facility] ([place]) Comment on above: Performed By: #### B MP, GFR ####[address] [address] Sodium [Moles/Vol] 143 mmol/L Normal 136-145 [facility] ([place]) Comment on above: Performed By: #### B MP, GFR ####[address] [address] Urea nitrogen [Mass/Vol] 13.0 mg/dL Normal 8.0-22.0 [facility] ([place]) Comment on above: Performed By: #### B MP, GFR ####[address] [address] XR CHEST 2 VIEWSon 9 XR CHEST 2 VIEWS ORIGINAL XR CHEST 2 VIEWS CLINICAL STATEMENT: Abnormal breath sounds. COMPARISON: Chest x-ray on 06/07/2019 FINDINGS: The LEFT chest tube is unchanged in position. LEFT basilar airspace disease and small LEFT pleural effusion appear unchanged. There is no visible pneumothorax. RIGHT lung is well aerated. No new abnormality has developed. IMPRESSION: No change in the LEFT basilar airspace disease and LEFT pleural fluid. No visible pneumothorax. Interpreted By: Daryl Dominguez MD Preliminary Report By: Daryl Dominguez MD Electronically Signed By: Daryl Dominguez MD Dictated Date: 06/08/2019 6:28:34 AM Prelim Date: 06/08/2019 6:28:34 AM Sign Date: 06/08/2019 6:29:24 AM Normal [facility] ([place]) .Auto Diffon 06-07-2019 Ammonia (P) [Mass/Vol] 0.40 10 3/mcL Normal 0.09-1.40 [facility] ([place]) Comment on above: Performed By: #### C BC, ADIFF, ANEU, CMP, GFR ####[address] [address] Basophils (Bld) [#/Vol] 0.00 10 3/mcL Normal 0.00-0.27 [facility] ([place]) Comment on above: Performed By: #### C BC, ADIFF, ANEU, CMP, GFR ####[address] [address] Basophils/100 WBC (Bld) 0.4 % Normal 0.0-2.5 [facility] ([place]) Comment on above: Performed By: #### C BC, ADIFF, ANEU, CMP, GFR ####[address] [address] Eosinophils (Bld) [#/Vol] 0.30 10 3/mcL Normal 0.00-0.65 [facility] ([place]) Comment on above: Performed By: #### C BC, ADIFF, ANEU, CMP, GFR ####[address] [address] Eosinophils/100 WBC (Bld) 6.6 % High 0.0-6.0 [facility] ([place]) Comment on above: Performed By: #### C BC, ADIFF, ANEU, CMP, GFR ####[address] [address] Lymphocytes (Bld) [#/Vol] 1.00 10 3/mcL Normal 0.90-4.32 [facility] ([place]) Comment on above: Performed By: #### C BC, ADIFF, ANEU, CMP, GFR ####[address] [address] Lymphocytes/100 WBC (Bld) 19.0 % Low 20.0-40.0 [facility] ([place]) Comment on above: Performed By: #### C BC, ADIFF, ANEU, CMP, GFR ####[address] [address] Monocytes/100 WBC (Bld) 7.4 % Normal 2.0-13.0 [facility] ([place]) Comment on above: Performed By: #### C BC, ADIFF, ANEU, CMP, GFR ####[address] [address] Neutrophils/100 WBC (Bld) 66.6 % Normal 50.0-75.0 [facility] ([place]) Comment on above: Performed By: #### C BC, ADIFF, ANEU, CMP, GFR ####[address] [address] Ammonia (P) [Mass/Vol] 0.50 10 3/mcL Normal 0.09-1.40 [facility] ([place]) Comment on above: Performed By: #### C BC, ADIFF, ANEU, BMP, GFR ####[address] [address] Basophils (Bld) [#/Vol] 0.00 10 3/mcL Normal 0.00-0.27 [facility] ([place]) Comment on above: Performed By: #### C BC, ADIFF, ANEU, BMP, GFR ####[address] [address] Basophils/100 WBC (Bld) 0.7 % Normal 0.0-2.5 [facility] ([place]) Comment on above: Performed By: #### C BC, ADIFF, ANEU, BMP, GFR ####[address] [address] Eosinophils (Bld) [#/Vol] 0.10 10 3/mcL Normal 0.00-0.65 [facility] ([place]) Comment on above: Performed By: #### C BC, ADIFF, ANEU, BMP, GFR ####[address] [address] Eosinophils/100 WBC (Bld) 1.8 % Normal 0.0-6.0 [facility] ([place]) Comment on above: Performed By: #### C BC, ADIFF, ANEU, BMP, GFR ####[address] [address] Lymphocytes (Bld) [#/Vol] 2.10 10 3/mcL Normal 0.90-4.32 [facility] ([place]) Comment on above: Performed By: #### C BC, ADIFF, ANEU, BMP, GFR ####[address] [address] Lymphocytes/100 WBC (Bld) 32.8 % Normal 20.0-40.0 [facility] ([place]) Comment on above: Performed By: #### C BC, ADIFF, ANEU, BMP, GFR ####[address] [address] Monocytes/100 WBC (Bld) 7.1 % Normal 2.0-13.0 [facility] ([place]) Comment on above: Performed By: #### C BC, ADIFF, ANEU, BMP, GFR ####[address] [address] Neutrophils/100 WBC (Bld) 57.6 % Normal 50.0-75.0 [facility] ([place]) Comment on above: Performed By: #### C BC, ADIFF, ANEU, BMP, GFR ####[address], [place] [address] Ammonia (P) [Mass/Vol] 0.60 10 3/mcL Normal 0.09-1.40 [facility] ([place]) Comment on above: Performed By: #### C STEPHANIE KRISHNAMURTHY, ANEU #### [address] [address] #### BMP, GFR #### [address] [address] Basophils (Bld) [#/Vol] 0.00 10 3/mcL Normal 0.00-0.27 [facility] ([place]) Comment on above: Performed By: #### C STEPHANIE KRISHNAMURTHY, ANEU #### [place] [address] #### BMP, GFR #### [address] [address] Basophils/100 WBC (Bld) 0.5 % Normal 0.0-2.5 [facility] ([place]) Comment on above: Performed By: #### C STEPHANIE KRISHNAMURTHY, ANEU #### [address] [address] #### BMP, GFR #### [address] [address] Eosinophils (Bld) [#/Vol] 0.10 10 3/mcL Normal 0.00-0.65 [facility] ([place]) Comment on above: Performed By: #### C STEPHANIE KRISHNAMURTHY, ANEU #### [place] [address] #### BMP, GFR #### [address] [address] Eosinophils/100 WBC (Bld) 2.2 % Normal 0.0-6.0 [facility] ([place]) Comment on above: Performed By: #### C RAGHU ADIFF, ANEU #### [address] [address] #### BMP, GFR #### [address] [address] Lymphocytes (Bld) [#/Vol] 0.80 10 3/mcL Low 0.90-4.32 [facility] ([place]) Comment on above: Performed By: #### C BC, ADIFF, ANEU #### [address] [address] #### BMP, GFR #### [address] [address] Lymphocytes/100 WBC (Bld) 12.3 % Low 20.0-40.0 [facility] ([place]) Comment on above: Performed By: #### C BC, ADIFF, ANEU #### [address] [address] #### BMP, GFR #### [address] [address] Monocytes/100 WBC (Bld) 9.5 % Normal 2.0-13.0 [facility] ([place]) Comment on above: Performed By: #### C BC, ADIFF, ANEU #### [address] [address] #### BMP, GFR #### [address] [address] Neutrophils/100 WBC (Bld) 75.5 % High 50.0-75.0 [facility] ([place]) Comment on above: Performed By: #### C BC, ADIFF, ANEU #### [address] [address] #### BMP, GFR #### [address] [address] .GFRon 06-07-2019 GFR >60 Normal [facility] ([place]) Comment on above: Result Comment: GFR Population mean for , Non- Americans Ages 20-29 = 116 mL/min/1.73 sq.m. Ages 30-39 = 107 mL/min/1.73 sq.m. Ages 40-49 = 99 mL/min/1.73 sq.m. Ages 50-59 = 93 mL/min/1.73 sq.m. Ages 60-69 = 85 mL/min/1.73 sq.m. Ages 70+ = 75 mL/min/1.73 sq.m. Chronic Kidney Disease: Less than 60 mL/min/1.73 square meters End Stage Renal Disease: Less than 15 mL/min/1.73 square meters Performed By: #### C BC, ADIFF, ANEU, CMP, GFR ####[address] [address] GFR Non- >60 Normal [facility] ([place]) Comment on above: Result Comment: GFR Population mean for , Non- Americans Ages 20-29 = 116 mL/min/1.73 sq.m. Ages 30-39 = 107 mL/min/1.73 sq.m. Ages 40-49 = 99 mL/min/1.73 sq.m. Ages 50-59 = 93 mL/min/1.73 sq.m. Ages 60-69 = 85 mL/min/1.73 sq.m. Ages 70+ = 75 mL/min/1.73 sq.m. Chronic Kidney Disease: Less than 60 mL/min/1.73 square meters End Stage Renal Disease: Less than 15 mL/min/1.73 square meters Performed By: #### C BC, ADIFF, ANEU, CMP, GFR ####[address] [address] GFR >60 Normal [facility] ([place] Comment on above: Result Comment: GFR Population mean for , Non- Americans Ages 20-29 = 116 mL/min/1.73 sq.m. Ages 30-39 = 107 mL/min/1.73 sq.m. Ages 40-49 = 99 mL/min/1.73 sq.m. Ages 50-59 = 93 mL/min/1.73 sq.m. Ages 60-69 = 85 mL/min/1.73 sq.m. Ages 70+ = 75 mL/min/1.73 sq.m. Chronic Kidney Disease: Less than 60 mL/min/1.73 square meters End Stage Renal Disease: Less than 15 mL/min/1.73 square meters Performed By: #### C BC, ADIFF, ANEU, BMP, GFR ####[address] [address] GFR Non- >60 Normal [facility] ([place]) Comment on above: Result Comment: GFR Population mean for , Non- Americans Ages 20-29 = 116 mL/min/1.73 sq.m. Ages 30-39 = 107 mL/min/1.73 sq.m. Ages 40-49 = 99 mL/min/1.73 sq.m. Ages 50-59 = 93 mL/min/1.73 sq.m. Ages 60-69 = 85 mL/min/1.73 sq.m. Ages 70+ = 75 mL/min/1.73 sq.m. Chronic Kidney Disease: Less than 60 mL/min/1.73 square meters End Stage Renal Disease: Less than 15 mL/min/1.73 square meters Performed By: #### C RAGHU, STEPHANIE, ANEU, BMP, GFR ####[address] [address] GFR Non- >60 Normal [facility] ([place]) Comment on above: Result Comment: GFR Population mean for , Non- Americans Ages 20-29 = 116 mL/min/1.73 sq.m. Ages 30-39 = 107 mL/min/1.73 sq.m. Ages 40-49 = 99 mL/min/1.73 sq.m. Ages 50-59 = 93 mL/min/1.73 sq.m. Ages 60-69 = 85 mL/min/1.73 sq.m. Ages 70+ = 75 mL/min/1.73 sq.m. Chronic Kidney Disease: Less than 60 mL/min/1.73 square meters End Stage Renal Disease: Less than 15 mL/min/1.73 square meters Performed By: #### C BC, STEPHANIE, ANEU, BMP, GFR ####[address] [address] GFR >60 Normal [facility] ([place]) Comment on above: Result Comment: GFR Population mean for , Non- Americans Ages 20-29 = 116 mL/min/1.73 sq.m. Ages 30-39 = 107 mL/min/1.73 sq.m. Ages 40-49 = 99 mL/min/1.73 sq.m. Ages 50-59 = 93 mL/min/1.73 sq.m. Ages 60-69 = 85 mL/min/1.73 sq.m. Ages 70+ = 75 mL/min/1.73 sq.m. Chronic Kidney Disease: Less than 60 mL/min/1.73 square meters End Stage Renal Disease: Less than 15 mL/min/1.73 square meters Performed By: #### C BC, ADIFF, ANEU, BMP, GFR ####[address] [id number] .NEUABSon 06-07-2019 Neutrophils (Bld) [#/Vol] 3.40 10 3/mcL Normal 2.25-8.10 [facility] [facility] ([place]) Comment on above: Performed By: #### C BC, ADIFF, ANEU, CMP, GFR ####[place] [address] Neutrophils (Bld) [#/Vol] 3.80 10 3/mcL Normal 2.25-8.10 [facility] ([place]) Comment on above: Performed By: #### C BC, ADIFF, ANEU, BMP, GFR ####[place] [address] Neutrophils (Bld) [#/Vol] 5.00 10 3/mcL Normal 2.25-8.10 [facility] ([place]) Comment on above: Performed By: #### C BC, ADIFF, ANEU #### [address] [address] #### BMP, GFR #### [place] [address] BMPon 06-07-2019 Creatinine [Mass/Vol] 0.66 mg/dL Normal 0.50-1.20 [facility] ([place]) Comment on above: Performed By: #### C BC, ADIFF, ANEU, BMP, GFR ####[place] [address] Urea nitrogen/Creatinine [Mass ratio] 16.7 ratio Normal 10.0-22.0 [facility] ([place] Comment on above: Performed By: #### C BC, ADIFF, ANEU, BMP, GFR ####[place] [address] Calcium [Mass/Vol] 7.8 mg/dL Low 8.4-10.1 [facility] ([place]) Comment on above: Performed By: #### C BC, ADIFF, ANEU, BMP, GFR ####[address] [address] Chloride [Moles/Vol] 106 mmol/L Normal 98-110 [facility] ([place]) Comment on above: Performed By: #### C BC, ADIFF, ANEU, BMP, GFR ####[address] [address] CO2 [Moles/Vol] 26 mmol/L Normal 22-32 [facility] ([place]) Comment on above: Performed By: #### C BC, ADIFF, ANEU, BMP, GFR ####[address] [address] Electrolyte Balance 9.0 mEq/L Normal 4.0-15.0 [facility] [place] on [place]: Performed By: #### C BC, ADIFF, ANEU, BMP, GFR ####[address] [address] Glucose [Mass/Vol] 101 mg/dL Normal 82-115 [facility] ([place]) Comment on above: Performed By: #### C BC, ADIFF, ANEU, BMP, GFR ####[address] [address] Potassium [Moles/Vol] 3.6 mmol/L Normal 3.5-5.0 [facility] ([place] Comment on above: Performed By: #### C BC, ADIFF, ANEU, BMP, GFR ####[address] [address] Sodium [Moles/Vol] 141 mmol/L Normal 136-145 [facility] ([place] Comment on above: Performed By: #### C BC, ADIFF, ANEU, BMP, GFR ####[address] [address] Urea nitrogen [Mass/Vol] 11.0 mg/dL Normal 8.0-22.0 [facility] ([place] Comment on above: Performed By: #### C BC, ADIFF, ANEU, BMP, GFR ####[address] [address] Calcium [Mass/Vol] 8.4 mg/dL Normal 8.4-10.1 [facility] ([place] Comment on above: Performed By: #### C BC, ADIFF, ANEU, BMP, GFR ####[address] [address] Chloride [Moles/Vol] 106 mmol/L Normal 98-110 [facility] ([place] Comment on above: Performed By: #### C BC, ADIFF, ANEU, BMP, GFR ####[address] [address] CO2 [Moles/Vol] 25 mmol/L Normal 22-32 [facility] ([place] Comment on above: Performed By: #### C BC, ADIFF, ANEU, BMP, GFR ####[address] [address] Creatinine [Mass/Vol] 0.73 mg/dL Normal 0.50-1.20 [facility] ([place] Comment on above: Performed By: #### C BC, ADIFF, ANEU, BMP, GFR ####[place] [address] Electrolyte Balance 9.0 mEq/L Normal 4.0-15.0 [facility] [place]: Performed By: #### C BC, ADIFF, ANEU, BMP, GFR ####[address] [address] Glucose [Mass/Vol] 230 mg/dL High 82-115 [facility] ([place] Comment on above: Performed By: #### C BC, ADIFF, ANEU, BMP, GFR ####[address] [address] Potassium [Moles/Vol] 3.8 mmol/L Normal 3.5-5.0 [facility] ([place] Comment on above: Performed By: #### C BC, ADIFF, ANEU, BMP, GFR ####[address] [address] Sodium [Moles/Vol] 140 mmol/L Normal 136-145 [facility] ([place] Comment on above: Performed By: #### C BC, ADIFF, ANEU, BMP, GFR ####[place] [address] Urea nitrogen [Mass/Vol] 16.0 mg/dL Normal 8.0-22.0 [facility] ([place] Comment on above: Performed By: #### C BC, ADIFF, ANEU, BMP, GFR ####[place] [address] Urea nitrogen/Creatinine [Mass ratio] 21.9 ratio Normal 10.0-22.0 [facility] ([place] Comment on above: Performed By: #### C BC, ADIFF, ANEU, BMP, GFR ####[place] [address] CBCon 06-07-2019 Erythrocyte distribution width (RBC) [Ratio] 12.5 % Normal 11.5-15.5 [facility] ([place] Comment on above: Performed By: #### C BC, ADIFF, ANEU, CMP, GFR ####[place] [address] Hematocrit (Bld) [Volume fraction] 35.3 % Low 40.0-52.0 [facility] ([place] Comment on above: Performed By: #### C BC, ADIFF, ANEU, CMP, GFR ####[place] [address] Hemoglobin (Bld) [Mass/Vol] 12.0 G/dL Low 13.0-17.5 [facility] ([place] Comment on above: Performed By: #### C BC, ADIFF, ANEU, CMP, GFR ####[place] [address] MCH (RBC) [Entitic mass] 32.0 pg Normal 27.0-33.0 [facility] ([place] Comment on above: Performed By: #### C BC, ADIFF, ANEU, CMP, GFR ####[id number] [place] [address] MCHC (RBC) [Mass/Vol] 34.1 G/dL Normal 32.0-36.0 [facility] ([place] Comment on above: Performed By: #### C BC, ADIFF, ANEU, CMP, GFR ####[address] [address] MCV (RBC) [Entitic vol] 94.1 fL Normal 81.0-100.0 [facility] ([place] Comment on above: Performed By: #### C BC, ADIFF, ANEU, CMP, GFR ####[address] [address] Platelet mean volume (Bld) [Entitic vol] 6.9 fL Normal 6.4-10.5 [facility] ([place]) Comment on above: Performed By: #### C BC, ADIFF, ANEU, CMP, GFR ####[address] [address] Platelets (Bld) [#/Vol] 109 10 3/mcL Low 150-450 [facility] ([place] Comment on above: Performed By: #### C BC, ADIFF, ANEU, CMP, GFR ####[address] [address] RBC (Bld) [#/Vol] 3.76 10 6/mcL Low 4.50-6.00 [facility] ([place]) Comment on above: Performed By: #### C BC, ADIFF, ANEU, CMP, GFR ####[place] [phone] WBC (Bld) [#/Vol] 5.00 10 3/mcL Normal 4.50-10.80 [facility] ([place] Comment on above: Performed By: #### C BC, ADIFF, ANEU, CMP, GFR ####[place] [address] Erythrocyte distribution width (RBC) [Ratio] 13.6 % Normal 11.5-15.5 [facility] ([place] Comment on above: Performed By: #### C BC, ADIFF, ANEU, BMP, GFR ####[address] [address] Hematocrit (Bld) [Volume fraction] 28.1 % Low 34.0-46.0 [facility] ([place] Comment on above: Performed By: #### C BC, ADIFF, ANEU, BMP, GFR ####[place] [address] Hemoglobin (Bld) [Mass/Vol] 9.4 G/dL Low 12.0-16.0 [facility] ([place] Comment on above: Performed By: #### C BC, ADIFF, ANEU, BMP, GFR ####[place] [address] MCH (RBC) [Entitic mass] 32.4 pg Normal 27.0-33.0 [facility] ([place] Comment on above: Performed By: #### C BC, ADIFF, ANEU, BMP, GFR ####[place] [address] MCHC (RBC) [Mass/Vol] 33.5 G/dL Normal 32.0-36.0 [facility] ([place] Comment on above: Performed By: #### C BC, ADIFF, ANEU, BMP, GFR ####[place] [address] MCV (RBC) [Entitic vol] 96.7 fL Normal 80.0-99.0 [facility] ([place] Comment on above: Performed By: #### C BC, ADIFF, ANEU, BMP, GFR ####[place] [address] Platelet mean volume (Bld) [Entitic vol] 7.5 fL Normal 6.6-10.5 [facility] ([place] Comment on above: Performed By: #### C BC, ADIFF, ANEU, BMP, GFR ####[place] [phone] Platelets (Bld) [#/Vol] 257 10 3/mcL Normal 150-450 [facility] ([place] Comment on above: Performed By: #### C BC, ADIFF, ANEU, BMP, GFR ####[place] [address] RBC (Bld) [#/Vol] 2.90 10 6/mcL Low 4.10-5.30 [facility] ([place] Comment on above: Performed By: #### C BC, ADIFF, ANEU, BMP, GFR ####[address] [address] WBC (Bld) [#/Vol] 6.50 10 3/mcL Normal 4.50-10.80 [facility] ([place] Comment on above: Performed By: #### C BC, ADIFF, ANEU, BMP, GFR ####[address] [address] Erythrocyte distribution width (RBC) [Ratio] 13.8 % Normal 11.5-15.5 [facility] ([place] Comment on above: Performed By: #### C BC, ADIFF, ANEU #### [place] [address] #### BMP, GFR #### [address] [address] Hematocrit (Bld) [Volume fraction] 27.4 % Low 34.0-46.0 [facility] ([place] Comment on above: Performed By: #### C BC, ADIFF, ANEU #### [place] [address] #### BMP, GFR #### [address] [address] Hemoglobin (Bld) [Mass/Vol] 9.4 G/dL Low 12.0-16.0 [facility] ([place] Comment on above: Performed By: #### C BC, ADIFF, ANEU #### [address] [address] #### BMP, GFR #### [address] [address] MCH (RBC) [Entitic mass] 30.3 pg Normal 27.0-33.0 [facility] ([place] Comment on above: Performed By: #### C BC, ADIFF, ANEU #### [address] [address] #### BMP, GFR #### [address] [address] MCHC (RBC) [Mass/Vol] 34.4 G/dL Normal 32.0-36.0 [facility] ([place] Comment on above: Performed By: #### C BC, ADIFF, ANEU #### [address] [address] #### BMP, GFR #### [address] [address] MCV (RBC) [Entitic vol] 88.2 fL Normal 80.0-99.0 [facility] ([place] Comment on above: Performed By: #### C BC, ADIFF, ANEU #### [place] [address] #### BMP, GFR #### [address] [address] Platelet mean volume (Bld) [Entitic vol] 8.1 fL Normal 6.6-10.5 [facility] ([place] Comment on above: Performed By: #### C BC, ADIFF, ANEU #### [place] [address] #### BMP, GFR #### [address] [address] Platelets (Bld) [#/Vol] 188 10 3/mcL Normal 150-450 [facility] ([place] Comment on above: Performed By: #### C BC, ADIFF, ANEU #### [address] [address] #### BMP, GFR #### [address] [address] RBC (Bld) [#/Vol] 3.11 10 6/mcL Low 4.10-5.30 [facility] ([place] Comment on above: Performed By: #### C BC, ADIFF, ANEU #### [place] [address] #### BMP, GFR #### [address] [address] WBC (Bld) [#/Vol] 6.70 10 3/mcL Normal 4.50-10.80 [facility] ([place] Comment on above: Performed By: #### C BC, ADIFF, ANEU #### [address] [address] #### BMP, GFR #### [address] [address] CMPon 06-07-2019 Albumin/Globulin [Mass ratio] 0.8 {ratio} Low 0.9-1.6 [facility] ([place] Comment on above: Performed By: #### C BC, ADIFF, ANEU, CMP, GFR ####[place] [address] ALP [Catalytic activity/Vol] 47 U/L Normal 38-126 [facility] ([place] Comment on above: Performed By: #### C BC, ADIFF, ANEU, CMP, GFR ####[place] [address] Bili Total 0.5 mg/dL Normal 0.2-1.2 [facility] ([place] Comment on above: Performed By: #### C BC, ADIFF, ANEU, CMP, GFR ####[place] [address] Creatinine [Mass/Vol] 0.66 mg/dL Normal 0.60-1.40 [facility] ([place] Comment on above: Performed By: #### C BC, ADIFF, ANEU, CMP, GFR ####[place] [address] Globulin (S) [Mass/Vol] 2.7 G/dL Normal 1.5-3.8 [facility] ([place] Comment on above: Performed By: #### C BC, ADIFF, ANEU, CMP, GFR ####[address] [address] Protein [Mass/Vol] 4.8 G/dL Low 6.0-8.5 [facility] ([place] Comment on above: Performed By: #### C BC, ADIFF, ANEU, CMP, GFR ####[address] [address] Urea nitrogen/Creatinine [Mass ratio] 4.5 ratio Low 10.0-22.0 [facility] ([place] Comment on above: Performed By: #### C BC, ADIFF, ANEU, CMP, GFR ####[address] [address] Albumin [Mass/Vol] 2.1 G/dL Low 3.2-4.8 [facility] ([place] Comment on above: Performed By: #### C BC, ADIFF, ANEU, CMP, GFR ####[address] [address] ALT [Catalytic activity/Vol] 16 U/L Normal 12-55 [facility] ([place] Comment on above: Performed By: #### C BC, ADIFF, ANEU, CMP, GFR ####[address] [address] AST [Catalytic activity/Vol] 11 U/L Normal 8-34 [facility] ([place] Comment on above: Performed By: #### C BC, ADIFF, ANEU, CMP, GFR ####[address] [address] Calcium [Mass/Vol] 7.8 mg/dL Low 8.4-10.1 [facility] ([place] Comment on above: Performed By: #### C BC, ADIFF, ANEU, CMP, GFR ####[address] [address] Chloride [Moles/Vol] 113 mmol/L High 98-110 [facility] ([place] Comment on above: Performed By: #### C BC, ADIFF, ANEU, CMP, GFR ####[address] [address] CO2 [Moles/Vol] 30 mmol/L Normal 22-32 [facility] ([place] Comment on above: Performed By: #### C BC, ADIFF, ANEU, CMP, GFR ####[address] [address] Electrolyte Balance 5.0 mEq/L Normal 4.0-15.0 [facility] [place] above: Performed By: #### C BC, ADIFF, ANEU, CMP, GFR ####[address] [address] Glucose [Mass/Vol] 124 mg/dL High 70-110 [facility] ([place] Comment on above: Performed By: #### C BC, ADIFF, ANEU, CMP, GFR ####[place] [address] Potassium [Moles/Vol] 3.7 mmol/L Normal 3.5-5.0 [facility] ([place] Comment on above: Performed By: #### C BC, ADIFF, ANEU, CMP, GFR ####[place] [address] Sodium [Moles/Vol] 148 mmol/L High 136-145 [facility] ([place] Comment on above: Performed By: #### C BC, ADIFF, ANEU, CMP, GFR ####[place] [address] Urea nitrogen [Mass/Vol] 3.0 mg/dL Low 8.0-22.0 [facility] ([place] Comment on above: Performed By: #### C BC, ADIFF, ANEU, CMP, GFR ####[address] [address] HHon 06-07-2019 Hematocrit (Bld) [Volume fraction] 27.4 % Low 34.0-46.0 [facility] ([place] Comment on above: Performed By: #### H H ####[address] [address] Hemoglobin (Bld) [Mass/Vol] 9.6 G/dL Low 12.0-16.0 [facility] ([place] Comment on above: Performed By: #### H H ####[address] [address] XR CHEST 1 VIEWon 06-07-2019 XR CHEST 1 VIEW ORIGINAL XR CHEST 1 VIEW CLINICAL STATEMENT: left pneumothorax. COMPARISON: Chest x-ray on 06/06/2019 FINDINGS: LEFT chest tube is unchanged in position. There is no visible pneumothorax. LEFT pleural effusion and LEFT basilar infiltrate are unchanged. RIGHT lung remains well aerated with no acute abnormality. IMPRESSION: No pneumothorax. LEFT pleural effusion and basilar infiltrate are unchanged. Interpreted By: Daryl Dominguez MD Preliminary Report By: Daryl Dominguez MD Electronically Signed By: Daryl Dominguez MD Dictated Date: 06/07/2019 7:42:07 AM Prelim Date: 06/07/2019 7:42:07 AM Sign Date: 06/07/2019 7:43:21 AM Normal [facility] ([place]) .Auto Diffon 06-06-2019 Ammonia (P) [Mass/Vol] 0.70 10 3/mcL Normal 0.09-1.40 [facility] ([place] Comment on above: Performed By: #### C STEPHANIE KRISHNAMURTHY ANEU #### [place] [address] #### BMP, GFR #### [address] [address] Basophils (Bld) [#/Vol] 0.00 10 3/mcL Normal 0.00-0.27 [facility] ([place] Comment on above: Performed By: #### STEPHANIE JOHNSON ANEU #### [place] [address] #### BMP, GFR #### [address] [address] Basophils/100 WBC (Bld) 0.4 % Normal 0.0-2.5 [facility] ([place] Comment on above: Performed By: #### C STEPHANIE KRISHNAMURTHY, ANEU #### [place] [address] #### BMP, GFR #### [address] [address] Eosinophils (Bld) [#/Vol] 0.10 10 3/mcL Normal 0.00-0.65 [facility] ([place] Comment on above: Performed By: #### C STEPHANIE KRISHNAMURTHY, ANEU #### [place] [address] #### BMP, GFR #### [address] [address] Eosinophils/100 WBC (Bld) 0.8 % Normal 0.0-6.0 [facility] ([place]) Comment on above: Performed By: #### C BC, ADIFF, ANEU #### [address] [address] #### BMP, GFR #### [address] [address] Lymphocytes (Bld) [#/Vol] 0.70 10 3/mcL Low 0.90-4.32 [facility] ([place]) Comment on above: Performed By: #### C BC, ADIFF, ANEU #### [place] [address] #### BMP, GFR #### [address] [address] Lymphocytes/100 WBC (Bld) 9.2 % Low 20.0-40.0 [facility] ([place]) Comment on above: Performed By: #### C BC, ADIFF, ANEU #### [place] [address] #### BMP, GFR #### [address] [address] Monocytes/100 WBC (Bld) 9.6 % Normal 2.0-13.0 [facility] ([place]) Comment on above: Performed By: #### C BC, ADIFF, ANEU #### [place] [address] #### BMP, GFR #### [address] [address] Neutrophils/100 WBC (Bld) 80.0 % High 50.0-75.0 [facility] ([place]) Comment on above: Performed By: #### C BC, ADIFF, ANEU #### [address] [address] #### BMP, GFR #### [address] [address] .GFRon 09-23-2019 GFR Non- >60 Normal [facility] ([place] Comment on above: Result Comment: GFR Population mean for , Non- Americans Ages 20-29 = 116 mL/min/1.73 sq.m. Ages 30-39 = 107 mL/min/1.73 sq.m. Ages 40-49 = 99 mL/min/1.73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 FASTINGP ERFORMED BY: CB [facility] Javvfl6186 [address] Teamer.netDublin [place] [id number] Bilirubin mass conc 0.5 mg/dL Normal 0.0-1.2 Compr ehensive Internal Medicine Work Phone: Comment on above: PATIENT WAS FASTINGP ERFORMED BY: ORTIZ [facility] Svrwmt3179 [address] [facility] [place] [id number] Bilirubin.direct mass conc 0.16 mg/dL Normal 0.00-0.40 [facility] Work Phone: Comment on above: PATIENT WAS FASTINGP ERFORMED BY: CB [facility] Mocsof0580 [address] [facility] [place] [id number] Protein mass conc 6.7 g/dL Normal 6.0-8.5 Compreh ensive Internal Medicine Work Phone: Comment on above: PATIENT WAS FASTINGP ERFORMED BY: ORTIZ [facility] Tvptmg0640 [facility] [id number] LIPID PANEL (02172)Ordered B y: Ssis Ssrs Developer on 12-16-2016 Cholesterol in HDL mass conc 56 mg/dL Normal [facility] Work Phone: Comment on above: PATIENT WAS FASTINGP ERFORMED BY: ORTIZ [facility] Swmxnk3170 [facility] [id number] Information: [id number], [id number] Cholesterol in LDL mass conc 44 mg/dL Normal 0-99 [facility] Work Phone: Comment on above: PATIENT WAS FASTINGP ERFORMED BY: ORTIZ [facility] Eeiqcx1710 [facility] [id number] Information: [id number], [id number] Cholesterol in LDL/Cholesterol in HDL mass ratio 0.8 {ratio_units} Normal 0.0-3.2 [facility] Work Phone: Comment on above: LDL/HDL Ratio Men Wo men 1/2 Avg.Risk 1.0 1.5 Avg.Risk 3.6 3.2 2X Avg.Risk 6.2 5.0 3X Avg.Risk 8.0 6.1 PATIENT WAS FASTINGP ERFORMED BY: ORTIZ [facility] Fgqbof7201 [facility] [id number] Information: [id number], [id number] Cholesterol in VLDL mass conc 27 mg/dL Normal 5-40 [facility] Work Phone: Comment on above: PATIENT WAS FASTINGP ERFORMED BY: ORTIZ [facility] Jqhkbp020[address] [facility] [id number] Information: [id number], [id number] Cholesterol mass conc 127 mg/dL Normal 100-199 Com prehensive Internal Medicine Work Phone: Comment on above: PATIENT WAS FASTINGP ERFORMED BY: CB [facility] Thnbdc9755 [facility] [id number] Information: [id number], [id number] Triglyceride mass conc 135 mg/dL Normal 0-149 Co mprehensive Internal Medicine Work Phone: Comment on above: PATIENT WAS FASTINGP ERFORMED BY: ORTIZ [facility] Mdcbyx5428 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 [id number] Cholesterol in LDL mass conc 161 mg/dL Abnormal 0-99 [facility] Work Phone: Comment on above: PATIENT WAS FASTINGP ERFORMED BY: CB [facility] Ggvqmw6223 [facility] [id number] Cholesterol in LDL/Cholesterol in HDL mass ratio 3.7 {ratio_units} Abnormal 0.0-3.2 [facility] Work Phone: Comment on above: LDL/HDL Ratio Men Wo men 1/2 Avg.Risk 1.0 1.5 Avg.Risk 3.6 3.2 2X Avg.Risk 6.2 5.0 3X Avg.Risk 8.0 6.1 PATIENT WAS FASTINGP ERFORMED BY: CB [facility] Ewqakl4384 [address] RoadDublin [place] [id number] Cholesterol in VLDL mass conc 28 mg/dL Normal 5-40 [facility] Work Phone: Comment on above: PATIENT WAS FASTINGP ERFORMED BY: CB [facility] Auqmob1336 [address] RoadDublin [place] [id number] Cholesterol mass conc 233 mg/dL Abnormal 100-199 Com prehensive Internal Medicine Work Phone: Comment on above: PATIENT WAS FASTINGP ERFORMED BY: CB [facility] Pkkfpw5322 [address] RoadDublin [place] [id number] Triglyceride mass conc 139 mg/dL Normal 0-149 [facility] Work Phone: Comment on above: PATIENT WAS FASTINGP ERFORMED BY: CB [facility] Dsmelt1199 [address] RoadDublin [place] [id number] VITAMIN B-12 (CYANOCOBALAMIN ) (29128)Ordered By: Ssis Ssrs Developer on 09-16-2016 Cobalamin (Vitamin B12) mass conc 788 pg/mL Normal 211-946 [facility] Work Phone: Comment on above: PATIENT WAS FASTINGP ERFORMED BY: CB [facility] Xqcqhn1723 [address] RoadDublin [place] [id number] CALCIFIDIOL (92614) VIT D 25 Ordered By: Ssis Ssrs Developer on 07-01-2016 25-Hydroxyvitamin D2+25-Hydroxyvitamin D3 mass conc 34.8 ng/mL Normal 30.0-100.0 [facility] Work Phone: Comment on above: Vitamin D deficiency has been defined by the [place] ofMedicine and an Endocrine Society practice guideline as alevel of serum 25-OH vitamin D less than 20 ng/mL (1,2).The Endocrine Society went on to further define vitamin Dinsufficiency as a level between 21 and 29 ng/mL (2).1. IOM ([place] of Medicine). 2010. Dietary reference intakes for calcium and D. [place]: The National Academies Press.2. Allie MF, Emile PONCE, Natalie POOLE, et al. Evaluation, treatment, and prevention of vitamin D deficiency: an Endocrine Society clinical practice guideline. JCEM. 2010; 96(7):1911-30. PATIENT WAS FASTINGP ERFORMED BY: ORTIZ [facility] Uplyfi9683 Rodriguez RoadDublin [place] [id number] CBC W/AUTO DIFF WBC ([id number])O rdered By: Ssis Ssrs Developer on 07-01-2016 Basophils #/vol (Bld) 0.0 {x10E3/uL} Normal 0.0-0.2 [facility] Work Phone: Comment on above: PATIENT WAS FASTINGP ERFORMED BY: ORTIZ [facility] Kusxgd7770 Rodriguez RoadDublin [place] [id number] Basophils/100 WBC (Bld) 0 % Normal [facility] Work Phone: Comment on above: PATIENT WAS FASTINGP ERFORMED BY: ORTIZ [facility] Ylouzi5959 [address] RoadDublin [place] [id number] Eosinophils #/vol (Bld) 0.1 {x10E3/uL} Normal 0.0-0.4 [facility] Work Phone: Comment on above: PATIENT WAS FASTINGP ERFORMED BY: ORTIZ [facility] Mbpdmf2580 [address] RoadDublin [place] [id number] Eosinophils/100 WBC (Bld) 2 % Normal [facility] Work Phone: Comment on above: PATIENT WAS FASTINGP ERFORMED BY: [facility] Plfagm1212 [address] RoadDublin [place] [id number] Erythrocyte distribution width Ratio (RBC) 14.0 % Normal 12.3-15.4 [facility] Work Phone: Comment on above: PATIENT WAS FASTINGP ERFORMED BY: CB [facility] Fgpspo4501 [address] RoadDublin [place] [id number] Hematocrit Volume Fraction (Bld) 42.4 % Normal 34.0-46.6 [facility] Work Phone: Comment on above: PATIENT WAS FASTINGP ERFORMED BY: CB [facility] Mbwwte7227 [address] RoadDublin [place] [id number] Hemoglobin mass conc (Bld) 14.1 g/dL Normal 11.1-15.9 [facility] Work Phone: Comment on above: PATIENT WAS FASTINGP ERFORMED BY: LabCoWeisman Children's Rehabilitation HospitalVmyjpy0904 [address] [facility] [place] [id number] Immature granulocytes #/vol (Bld) 0.0 {x10E3/uL} Normal 0.0-0.1 [facility] Work Phone: Comment on above: PATIENT WAS FASTINGP ERFORMED BY: LabPemiscot Memorial Health SystemsMukzts[address] [facility] [id number] Immature granulocytes/100 WBC (Bld) 0 % Normal [facility] Work Phone: Comment on above: PATIENT WAS FASTINGP ERFORMED BY: LabCorewell [facility] [facility] [id number] Lymphocytes #/vol (Bld) 1.8 {x10E3/uL} Normal 0.7-3.1 [facility] Work Phone: Comment on above: PATIENT WAS FASTINGP ERFORMED BY: LabPemiscot Memorial Health SystemsBliqcr[address] [facility] [id number] Lymphocytes/100 WBC (Bld) 31 % Normal [facility] Work Phone: Comment on above: PATIENT WAS FASTINGP ERFORMED BY: LabCoLos Alamos Medical CenterZgsckq7960 [facility] [id number] MCH Entitic mass (RBC) 29.7 pg Normal 26.6-33.0 [facility] Internal Medicine Work Phone: Comment on above: PATIENT WAS FASTINGP ERFORMED BY: LabCo Nisigq10[address] [facility] [id number] MCHC mass conc (RBC) 33.3 g/dL Normal 31.5-35.7 [facility] Internal Medicine Work Phone: Comment on above: PATIENT WAS FASTINGP ERFORMED BY: LabCo Khaqsa0595 [facility] [id number] MCV Entitic volume (RBC) 89 fL Normal 79-97 [facility] Work Phone: Comment on above: PATIENT WAS FASTINGP ERFORMED BY: ORTIZ [facility] Jvjcai[address] [facility] [id number] Monocytes #/vol (Bld) 0.4 {x10E3/uL} Normal 0.1-0.9 [facility] Work Phone: Comment on above: PATIENT WAS FASTINGP ERFORMED BY: ORTIZ [facility]Oz[facility] Lfegbv5113 [facility] [id number] Monocytes/100 WBC (Bld) 6 % Normal [facility] Work Phone: Comment on above: PATIENT WAS FASTINGP ERFORMED BY: ORTIZ [facility]Oz[facility] Spdixs[address] [facility] [id number] Neutrophils #/vol (Bld) 3.7 {x10E3/uL} Normal 1.4-7.0 [facility] Work Phone: Comment on above: PATIENT WAS FASTINGP ERFORMED BY: ORTIZ [facility] Mechanicsburgaustyn CroweZnzwhi7034 [facility] [id number] Neutrophils/100 WBC (Bld) 61 % Normal [facility] Work Phone: Comment on above: PATIENT WAS FASTINGP ERFORMED BY: ORTIZ LabPaaustyn CroweNbmzrs3103 [facility] [id number] Platelets #/vol (Bld) 221 {x10E3/uL} Normal 150-379 [facility] Work Phone: Comment on above: PATIENT WAS FASTINGP ERFORMED BY: ORTIZ [facility] Gnasof3113 [facility] [id number] RBC #/vol (Bld) 4.75 {x10E6/uL} Normal 3.77-5.28 [facility] Internal Medicine Work Phone: Comment on above: PATIENT WAS FASTINGP ERFORMED BY: ORTIZ LabCorewell [facility] Hospital6370 [facility] [id number] WBC #/vol (Bld) 6.0 {x10E3/uL} Normal 3.4-10.8 [facility] Internal Medicine Work Phone: Comment on above: PATIENT WAS FASTINGP ERFORMED BY: ORTIZ Ameyaaustyn Qbsvse1193 [facility] [id number] LIPID PANEL ([id number])Ordered B y: Ssis Ssrs Developer on 07-01-2016 Cholesterol in HDL mass conc 41 mg/dL Normal [facility] Work Phone: Comment on above: According to ATP-III Guidelines, HDL-C >59 mg/dL is considered anegative risk factor for CHD. PATIENT WAS FASTINGP ERFORMED BY: ORTIZ Crowelin6370 [facility] [id number] Cholesterol in LDL mass conc 129 mg/dL Abnormal 0-99 [facility] Work Phone: Comment on above: PATIENT WAS FASTINGP ERFORMED BY: ORTIZ Crowelin6370 [facility] [id number] Cholesterol in LDL/Cholesterol in HDL mass ratio 3.1 {ratio_units} Normal 0.0-3.2 [facility] Work Phone: Comment on above: LDL/HDL Ratio Men Wo men 1/2 Avg.Risk 1.0 1.5 Avg.Risk 3.6 3.2 2X Avg.Risk 6.2 5.0 3X Avg.Risk 8.0 6.1 PATIENT WAS FASTINGP ERFORMED BY: ORTIZ Munguia Tartpp0332 [facility] [id number] Cholesterol in VLDL mass conc 45 mg/dL Abnormal 5-40 [facility] Work Phone: Comment on above: PATIENT WAS FASTINGP ERFORMED BY: ORTIZ Crowelin6370 [facility] [id number] Cholesterol mass conc 215 mg/dL Abnormal 100-199 Com prehensive Internal Medicine Work Phone: Comment on above: PATIENT WAS FASTINGP ERFORMED BY: ORTIZ LabAleksandr Wywjcy7736 [facility] [id number] Triglyceride mass conc 223 mg/dL Abnormal 0-149 Co mprehensive [facility] Work Phone: Comment on above: PATIENT WAS FASTINGP ERFORMED BY: ORTIZ LabAleksandr CroweIznwpw4658 [facility] [id number] METABOLIC PANEL, COMPREHENSI VE ([id number])Ordered By: Ssis Ssrs Developer on 07-01-2016 Albumin mass conc 4.1 g/dL Normal 3.5-4.8 Compreh ensive Internal Medicine Work Phone: Comment on above: PATIENT WAS FASTINGP ERFORMED BY: ORTIZ Crowelin6[address] RoadDublin [place] [id number] Albumin/Globulin mass ratio 1.6 {ratio} Normal 1.1-2.5 [facility] Work Phone: Comment on above: PATIENT WAS FASTINGP ERFORMED BY: ORTIZ LabAleksandr CroweUhjpdy2756 Rodriguez RoadDublin [place] [id number] ALP enzyme act/vol 98 [iU]/L Normal 39-117 Compre [facility] Internal Medicine Work Phone: Comment on above: PATIENT WAS FASTINGP ERFORMED BY: ORTIZ Chester[address] RoadDublin [place] [id number] ALT enzyme act/vol 11 [iU]/L Normal 0-32 Compre [facility] Internal Medicine Work Phone: Comment on above: PATIENT WAS FASTINGP ERFORMED BY: ORTIZ Crowelin6[address] RoadDublin [place] [id number] AST enzyme act/vol 17 [iU]/L Normal 0-40 Compre [facility] Internal Medicine Work Phone: Comment on above: PATIENT WAS FASTINGP ERFORMED BY: ORTIZ Crowelin6370 [address] RoadDublin [place] [id number] Bilirubin mass conc 0.2 mg/dL Normal 0.0-1.2 Compr [facility] Internal Medicine Work Phone: Comment on above: PATIENT WAS FASTINGP ERFORMED BY: ORTIZ LabCoaustyn CroweEbmoho6468 [address] RoadDublin [place] [id number] Calcium mass conc 9.8 mg/dL Normal 8.7-10.3 Compreh ensive Internal Medicine Work Phone: Comment on above: PATIENT WAS FASTINGP ERFORMED BY: ORTIZ LabAleksandr CroweMwsiwv4203 [address] RoadDublin [place] [id number] Chloride molar conc 101 mmol/L Normal 97-106 Compr ehensive Internal Medicine Work Phone: Comment on above: Please note refere nce interval change PATIENT WAS FASTINGP ERFORMED BY: ORTIZ LabCoaustyn ChesterGzabhe5[address] [facility] [id number] CO2 molar conc 27 mmol/L Normal 18-29 Comprehens trupti Internal Medicine Work Phone: Comment on above: PATIENT WAS FASTINGP ERFORMED BY: ORTIZ [facility] Xzgmhb5613 [facility] [id number] Creatinine mass conc 0.89 mg/dL Normal 0.57-1.00 Comp rehensive Internal Medicine Work Phone: Comment on above: PATIENT WAS FASTINGP ERFORMED BY: ORTIZ LabCo Bvomxd3553 [facility] [id number] GFR/1.73 sq M predicted among blacks CKD-EPI vol rate/area (S/P/Bld) 72 mL/min/1.73 Normal [facility] Work Phone: Comment on above: PATIENT WAS FASTINGP ERFORMED BY: ORTIZ [facility] Iwjsmh549[address] [facility] [id number] GFR/1.73 sq M predicted among non-blacks CKD-EPI vol rate/area (S/P/Bld) 63 mL/min/1.73 Normal Comprehensiv e Internal Medicine Work Phone: Comment on above: PATIENT WAS FASTINGP ERFORMED BY: ORTIZ [facility] Nqtuvz3399 [facility] [id number] Globulin mass conc (S) 2.5 g/dL Normal 1.5-4.5 Co mprehensive Internal Medicine Work Phone: Comment on above: PATIENT WAS FASTINGP ERFORMED BY: ORTIZ [facility] Stkoao[address] [facility] [id number] Glucose mass conc 92 mg/dL Normal 65-99 Compreh ensive Internal Medicine Work Phone: Comment on above: PATIENT WAS FASTINGP ERFORMED BY: ORTIZ [facility] Nbmvtb1529 [facility] Childrenblin [place] [id number] Potassium molar conc 5.0 mmol/L Normal 3.5-5.2 Comp rehensive Internal Medicine Work Phone: Comment on above: Please note refere nce interval change PATIENT WAS FASTINGP ERFORMED BY: ORTIZ [address]elin[address] [facility] [id number] Protein mass conc 6.6 g/dL Normal 6.0-8.5 Compreh ensive Internal Medicine Work Phone: Comment on above: PATIENT WAS FASTINGP ERFORMED BY: ORTIZ Crowelin6[address] [facility] [place] [id number] Sodium molar conc 143 mmol/L Normal 136-144 Compreh ensive Internal Medicine Work Phone: Comment on above: Please note refere nce interval change PATIENT WAS FASTINGP ERFORMED BY: ORTIZ Chester6370 [facility] [id number] Urea nitrogen mass conc 9 mg/dL Normal 8-27 [facility] Work Phone: Comment on above: PATIENT WAS FASTINGP ERFORMED BY: ORTIZ Chester6370 [facility] [id number] Urea nitrogen/Creatinine mass ratio 10 mg/mg Abnormal 11- [facility] Work Phone: Comment on above: PATIENT WAS FASTINGP ERFORMED BY: ORTIZ Chester6[address] [facility] [id number] MICROALBUMINOrdered By: Syst em Hybrid Tester on 07-01-2016 Albumin DL <= 20 mg/L mass conc (U) 5.9 ug/mL Normal [facility] Work Phone: Comment on above: PATIENT WAS FASTINGP ERFORMED BY: ORTIZ Crowelin6370 [facility] [id number] Albumin/Creatinine mass ratio (U) 4.3 {mg/g_creat} Normal 0.0-30.0 [facility] Work Phone: Comment on above: PATIENT WAS FASTINGP ERFORMED BY: ORTIZ Crowelin6[address]bl[address] [place] [id number] Creatinine mass conc (U) 138.1 mg/dL Normal [facility] Work Phone: Comment on above: PATIENT WAS FASTINGP ERFORMED BY: ORTIZ LabKellie Hkhxco9626 [address] Roadblin [place] [id number] TSH ([id number])Ordered By: Syste m Hybrid Tester on 07-01-2016 Thyrotropin Qn 3.470 {uIU/mL} Normal 0.450-4.50 0 [facility] Work Phone: Comment on above: PATIENT WAS FASTINGP ERFORMED BY: ORTIZ [facility] Oxaxjm2931 [address] [facility]in [place] [id number] URINALYSIS, W/ MICRO ([id number]) Ordered By: Ssis Ssrs Developer on 07-01-2016 Appearance Nom (U) Clear Normal Compre hensive Internal Medicine Work Phone: Comment on above: PATIENT WAS FASTINGP ERFORMED BY: ORTIZ [facility] Morxqu7450 [address] RoadCritical Access Hospitalin [place] [id number] Bilirubin Ql (U) Negative Normal Comprehe nsive Internal Medicine Work Phone: Comment on above: PATIENT WAS FASTINGP ERFORMED BY: ORTIZ [facility] Bxtzxo1109 [address] [facility]in [place] [id number] Color Nom (U) Yellow Normal Comprehensi ve Internal Medicine Work Phone: Comment on above: PATIENT WAS FASTINGP ERFORMED BY: ORTIZ [facility] Npfxni5659 [address] Roadblin [place] [id number] Glucose Ql (U) Negative Normal Comprehens trupti Internal Medicine Work Phone: Comment on above: PATIENT WAS FASTINGP ERFORMED BY: ORTIZ Lab[facility] Kthxoc5123 [address] RoadDublin [place] [id number] Hemoglobin Ql (U) Negative Normal Compreh ensive Internal Medicine Work Phone: Comment on above: PATIENT WAS FASTINGP ERFORMED BY: ORTIZ [facility] Ugmqjn1976 [address] RoadDublin [place] [id number] Ketones Ql (U) Negative Normal Comprehens trupti Internal Medicine Work Phone: Comment on above: PATIENT WAS FASTINGP ERFORMED BY: ORTIZ LabAleksandr CroweFhgimj2685 [address] RoadDublin [place] [id number] Leukocyte esterase Test strip Ql (U) Negative Normal [facility] Work Phone: Comment on above: PATIENT WAS FASTINGP ERFORMED BY: ORTIZ Crowelin6370 [address] RoadDublin [place] [id number] Microscopic observation LM Nom (Urine sed) MICRON Normal [facility] Work Phone: Comment on above: Microscopic follows if indicated. PATIENT WAS FASTINGP ERFORMED BY: ORTIZ Crowelin6370 [address] RoadDublin [place] [id number] Microscopic observation LM Nom (Urine sed) See below: Normal [facility] Work Phone: Comment on above: Microscopic was derrick cated and was performed. PATIENT WAS FASTINGP ERFORMED BY: ORTIZ Crowelin6370 [address] RoadDublin [place] [id number] Nitrite Ql (U) Negative Normal Comprehens trupti Internal Medicine Work Phone: Comment on above: PATIENT WAS FASTINGP ERFORMED BY: ORTIZ Crowelin6370 [address] RoadDublin [place] [id number] pH (U) 5.5 [pH] Normal 5.0-7.5 [facility] Work Phone: Comment on above: PATIENT WAS FASTINGP ERFORMED BY: ORTIZ Crowelin6370 [address] RoadDublin [place] [id number] Protein Ql (U) Negative Normal Comprehens trupti Internal Medicine Work Phone: Comment on above: PATIENT WAS FASTINGP ERFORMED BY: ORTIZ LabAleksandr CroweNgondl6928 [address] RoadDublin [place] [id number] Specific gravity Relative Density (U) 1.016 1 Normal 1.005-1.03 0 [facility] Work Phone: Comment on above: PATIENT WAS FASTINGP ERFORMED BY: ORTIZ LabAleksandr CroweBpvclf3454 [address] RoadDublin [place] [id number] Urobilinogen Test strip mass conc (U) 0.2 mg/dL Normal 0.2-1.0 Comprehensiv e Internal Medicine Work Phone: Comment on above: PATIENT WAS FASTINGP ERFORMED BY: ORTIZ [employer] Lrzjgm1010 [facility] [id number] VITAMIN B-12 (CYANOCOBALAMIN ) (17609)Ordered By: Ssis Ssrs Developer on 07-01-2016 Cobalamin (Vitamin B12) mass conc 861 pg/mL Normal 211-946 [facility] Work Phone: Comment on above: PATIENT WAS FASTINGP ERFORMED BY: [employer] Jztzwb5550 [facility] [id number] CALCIFIDIOL (25386) VIT D 25 Ordered By: Ssis Ssrs Developer on 12-05-2015 25-Hydroxyvitamin D2+25-Hydroxyvitamin D3 mass conc 40.5 ng/mL Normal 30.0-100.0 [facility] Work Phone: Comment on above: Vitamin D deficiency has been defined by the [place] of[place]icine and an Endocrine Society practice guideline as alevel of serum 25-OH vitamin D less than 20 ng/mL (1,2).The Endocrine Society went on to further define vitamin Dinsufficiency as a level between 21 and 29 ng/mL (2).1. IOM ([place] of Medicine). 2010. Dietary reference intakes for calcium and D. [place]: The National Academies Press.2. Allie MF, Emile NC, Natalie POOLE, et al. Evaluation, treatment, and prevention of vitamin D deficiency: an Endocrine Society clinical practice guideline. JCEM. 2010; 96(7):1911-30. PATIENT WAS FASTINGP ERFORMED BY: [employer] Cekawb3613 [facility] [id number] CBC W/AUTO DIFF WBC (04133)O rdered By: Ssis Ssrs Developer on 12-05-2015 Basophils #/vol (Bld) 0.0 {x10E3/uL} Normal 0.0-0.2 [facility] Work Phone: Comment on above: PATIENT WAS FASTINGP ERFORMED BY: [employer] [id number] [facility] [id number] Information: [id number] Basophils/100 WBC (Bld) 1 % Normal [facility] Work Phone: Comment on above: PATIENT WAS FASTINGP ERFORMED BY: [address] [id number] Information: [id number] Eosinophils #/vol (Bld) 0.2 {x10E3/uL} Normal 0.0-0.4 [facility] Work Phone: Comment on above: PATIENT WAS FASTINGP ERFORMED BY: [address] [id number] Information: [id number] Eosinophils/100 WBC (Bld) 4 % Normal [facility] Work Phone: Comment on above: PATIENT WAS FASTINGP ERFORMED BY: [address] [id number] Information: [id number] Erythrocyte distribution width Ratio (RBC) 13.7 % Normal 12.3-15.4 [facility] Work Phone: Comment on above: PATIENT WAS FASTINGP ERFORMED BY: [address] [id number] Information: [id number] Hematocrit Volume Fraction (Bld) 40.2 % Normal 34.0-46.6 [facility] Work Phone: Comment on above: PATIENT WAS FASTINGP ERFORMED BY: [place] [id number] [facility] [id number] Information: [id number] Hemoglobin mass conc (Bld) 13.6 g/dL Normal 11.1-15.9 [facility] Work Phone: Comment on above: PATIENT WAS FASTINGP ERFORMED BY: [place] [id number] [facility] [id number] Information: [id number] Immature granulocytes #/vol (Bld) 0.0 {x10E3/uL} Normal 0.0-0.1 [facility] Work Phone: Comment on above: PATIENT WAS FASTINGP ERFORMED BY: ORTIZ [place] [id number] [facility] [id number] Information: [id number] Immature granulocytes/100 WBC (Bld) 0 % Normal [facility] Work Phone: Comment on above: PATIENT WAS FASTINGP ERFORMED BY: [address] [id number] Information: [id number] Lymphocytes #/vol (Bld) 1.2 {x10E3/uL} Normal 0.7-3.1 [facility] Work Phone: Comment on above: PATIENT WAS FASTINGP ERFORMED BY: [address] [id number] Information: [id number] Lymphocytes/100 WBC (Bld) 26 % Normal [facility] Work Phone: Comment on above: PATIENT WAS FASTINGP ERFORMED BY: [address] [id number] Information: [id number] MCH Entitic mass (RBC) 30.0 pg Normal 26.6-33.0 [facility] Internal Medicine Work Phone: Comment on above: PATIENT WAS FASTINGP ERFORMED BY: [address] [id number] Information: [id number] MCHC mass conc (RBC) 33.8 g/dL Normal 31.5-35.7 [facility] Internal Medicine Work Phone: Comment on above: PATIENT WAS FASTINGP ERFORMED BY: [address] [id number] Information: [id number] MCV Entitic volume (RBC) 89 fL Normal 79-97 [facility] Work Phone: Comment on above: PATIENT WAS FASTINGP ERFORMED BY: ORTIZ [facility] Ikhyxk4572 [facility] [id number] Information: [id number] Monocytes #/vol (Bld) 0.5 {x10E3/uL} Normal 0.1-0.9 [facility] Work Phone: Comment on above: PATIENT WAS FASTINGP ERFORMED BY: ORTIZ [address] [id number] Information: [id number] Monocytes/100 WBC (Bld) 10 % Normal [facility] Work Phone: Comment on above: PATIENT WAS FASTINGP ERFORMED BY: ORTIZ Meena[address] [id number] Information: [id number] Neutrophils #/vol (Bld) 2.7 {x10E3/uL} Normal 1.4-7.0 [facility] Work Phone: Comment on above: PATIENT WAS FASTINGP ERFORMED BY: ORTIZ MeenaBrandy V[place] [id number] [facility] [id number] Information: [id number] Neutrophils/100 WBC (Bld) 59 % Normal [facility] Work Phone: Comment on above: PATIENT WAS FASTINGP ERFORMED BY: [address] [id number] Information: [id number] Platelets #/vol (Bld) 206 {x10E3/uL} Normal 150-379 [facility] Work Phone: Comment on above: PATIENT WAS FASTINGP ERFORMED BY: ORTIZ [place] [id number] [facility] [id number] Information: [id number] RBC #/vol (Bld) 4.54 {x10E6/uL} Normal 3.77-5.28 Comp rehasht[facility] Internal Medicine Work Phone: Comment on above: PATIENT WAS FASTINGP ERFORMED BY: ORTIZ Chester6370 [facility] [id number] Information: [id number] WBC #/vol (Bld) 4.5 {x10E3/uL} Normal 3.4-10.8 [facility] Internal Medicine Work Phone: Comment on above: PATIENT WAS FASTINGP ERFORMED BY: ORTIZ Kiser70 [facility] [id number] Information: [id number],[id number] LIPID PANEL (81659)Ordered B y: Ssis Ssrs Developer on 12-05-2015 Cholesterol in HDL mass conc 46 mg/dL Normal [facility] Work Phone: Comment on above: According to ATP-III Guidelines, HDL-C >59 mg/dL is considered anegative risk factor for CHD. PATIENT WAS FASTINGP ERFORMED BY: ORTIZ Nilda Chester6[address] [facility] [id number] Cholesterol in LDL mass conc 126 mg/dL Abnormal 0-99 [facility] Work Phone: Comment on above: PATIENT WAS FASTINGP ERFORMED BY: ORTIZ Nilda Chester6[address] [facility] [id number] Cholesterol in LDL/Cholesterol in HDL mass ratio 2.7 {ratio_units} Normal 0.0-3.2 [facility] Work Phone: Comment on above: LDL/HDL Ratio Men Wo men 1/2 Avg.Risk 1.0 1.5 Avg.Risk 3.6 3.2 2X Avg.Risk 6.2 5.0 3X Avg.Risk 8.0 6.1 PATIENT WAS FASTINGP ERFORMED BY: ORTIZ Crowelin6370 [facility] [id number] Cholesterol in VLDL mass conc 31 mg/dL Normal 5-40 [facility] Work Phone: Comment on above: PATIENT WAS FASTINGP ERFORMED BY: ORTIZ LabKellie Mrresc5267 [facility] [id number] Cholesterol mass conc 203 mg/dL Abnormal 100-199 [facility] prehensive Internal Medicine Work Phone: Comment on above: PATIENT WAS FASTINGP ERFORMED BY: ORTIZ [facility] Dozimo7701 [address] RoadDublin [place] [id number] Triglyceride mass conc 156 mg/dL Abnormal 0-149 [facility] joplinensive Internal Medicine Work Phone: Comment on above: PATIENT WAS FASTINGP ERFORMED BY: CB [facility] Cquone7316 [address] Roadblin [place] [id number] METABOLIC PANEL, COMPREHENSI VE (20291)Ordered By: Ssis Ssrs Developer on 12-05-2015 Albumin mass conc 4.2 g/dL Normal 3.5-4.8 [facility] Internal Medicine Work Phone: Comment on above: PATIENT WAS FASTINGP ERFORMED BY: ORTIZ [facility] Obwbhs0433 [address] [facility] [place] [id number] Albumin/Globulin mass ratio 1.8 {ratio} Normal 1.1-2.5 [facility] Internal Medicine Work Phone: Comment on above: PATIENT WAS FASTINGP ERFORMED BY: ORTIZ [facility] Nrqnzn3363 [facility] [place] [id number] ALP enzyme act/vol 71 [iU]/L Normal 39-117 [facility] Internal Medicine Work Phone: Comment on above: PATIENT WAS FASTINGP ERFORMED BY: ORTIZ [facility] Xvmvio3254 [facility] [place] [id number] ALT enzyme act/vol 10 [iU]/L Normal 0-32 [facility] Internal Medicine Work Phone: Comment on above: PATIENT WAS FASTINGP ERFORMED BY: CB [facility] Crjwly9817 [address] Roadblin [place] [id number] AST enzyme act/vol 17 [iU]/L Normal 0-40 [facility] Internal Medicine Work Phone: Comment on above: PATIENT WAS FASTINGP ERFORMED BY: CB [facility] Gndfgd1621 [address] Roadblin [place] [id number] Bilirubin mass conc 0.4 mg/dL Normal 0.0-1.2 [facility] Internal Medicine Work Phone: Comment on above: PATIENT WAS FASTINGP ERFORMED BY: ORTIZ [facility] Yvczjv1137 [address] RoadDublin [place] [id number] Calcium mass conc 9.5 mg/dL Normal 8.7-10.3 Compreh ensive Internal Medicine Work Phone: Comment on above: PATIENT WAS FASTINGP ERFORMED BY: ORTIZ [facility] Xgadjv8919 [address] RoadDublin [place] [id number] Chloride molar conc 106 mmol/L Normal 97-108 Compr ehensive Internal Medicine Work Phone: Comment on above: PATIENT WAS FASTINGP ERFORMED BY: ORTIZ [facility] Mfybgd2929 [address] RoadDublin [place] [id number] CO2 molar conc 25 mmol/L Normal 18-29 Comprehens trupti Internal Medicine Work Phone: Comment on above: PATIENT WAS FASTINGP ERFORMED BY: ORTIZ [facility] Hqjcfy23[address] [facility] [id number] Creatinine mass conc 0.92 mg/dL Normal 0.57-1.00 [facility] Work Phone: Comment on above: PATIENT WAS FASTINGP ERFORMED BY: ORTIZ [facility] Adijta[address] [facility] [id number] GFR/1.73 sq M predicted among blacks CKD-EPI vol rate/area (S/P/Bld) 70 mL/min/1.73 Normal [facility] Work Phone: Comment on above: PATIENT WAS FASTINGP ERFORMED BY: ORTIZ [facility] Luejoq5[address] [facility] [id number] GFR/1.73 sq M predicted among non-blacks CKD-EPI vol rate/area (S/P/Bld) 61 mL/min/1.73 Normal Comprehensiv e Internal Medicine Work Phone: Comment on above: PATIENT WAS FASTINGP ERFORMED BY: ORTIZ [facility] Sfdynn8411 [facility] [place] [id number] Globulin mass conc (S) 2.3 g/dL Normal 1.5-4.5 [facility] Work Phone: Comment on above: PATIENT WAS FASTINGP ERFORMED BY: ORTIZ Chester6[address] [facility] [place] [id number] Glucose mass conc 84 mg/dL Normal 65-99 Compreh ensive Internal Medicine Work Phone: Comment on above: PATIENT WAS FASTINGP ERFORMED BY: ORTIZ Chesetr6370 [facility] [place] [id number] Potassium molar conc 4.6 mmol/L Normal 3.5-5.2 [facility] Work Phone: Comment on above: PATIENT WAS FASTINGP ERFORMED BY: ORTIZ Chester[address] [facility] [place] [id number] Protein mass conc 6.5 g/dL Normal 6.0-8.5 Compreh ensive Internal Medicine Work Phone: Comment on above: PATIENT WAS FASTINGP ERFORMED BY: ORTIZ Chester[address] [facility] [id number] Sodium molar conc 145 mmol/L Abnormal 134-144 Compreh ensive Internal Medicine Work Phone: Comment on above: PATIENT WAS FASTINGP ERFORMED BY: ORTIZ Chester6[address] [facility] [id number] Urea nitrogen mass conc 16 mg/dL Normal 8-27 [facility] Work Phone: Comment on above: PATIENT WAS FASTINGP ERFORMED BY: ORTIZ Chester6[address] [facility] [id number] Urea nitrogen/Creatinine mass ratio 17 mg/mg Normal 11-26 [facility] Work Phone: Comment on above: PATIENT WAS FASTINGP ERFORMED BY: ORTIZ Crowelin6370 [facility] [id number] MICROALBUMINOrdered By: Syst em Hybrid Tester on 12-05-2015 Albumin DL <= 20 mg/L mass conc (U) 25.6 ug/mL Abnormal 0.0-17.0 [facility] Work Phone: Comment on above: PATIENT WAS FASTINGP ERFORMED BY: ORTIZ Chester6[address] [place] [id number] Albumin/Creatinine mass ratio (U) 9.3 {mg/g_creat} Normal 0.0-30.0 [facility] Work Phone: Comment on above: PATIENT WAS FASTINGP ERFORMED BY: ORTIZ [facility] Exunrg8198 [address] RoadDublin [place] [id number] Creatinine mass conc (U) 276.5 mg/dL Normal 15.0-278.0 [facility] Work Phone: Comment on above: PATIENT WAS FASTINGP ERFORMED BY: [facility] Eyfbdw9820 [address] RoadDublin [place] [id number] TSH ([id number])Ordered By: Syste m Hybrid Tester on 12-05-2015 Thyrotropin Qn 1.330 {uIU/mL} Normal 0.450-4.50 0 [facility] Work Phone: Comment on above: PATIENT WAS FASTINGP ERFORMED BY: [facility] Ksqtqs1039 [address] RoadDublin [place] [id number] URINALYSIS, W/ MICRO ([id number]) Ordered By: Ssis Ssrs Developer on 12-05-2015 Appearance Nom (U) Clear Normal Compre hensive Internal Medicine Work Phone: Comment on above: PATIENT WAS FASTINGP ERFORMED BY: ORTIZ [facility] Rjohxz5221 [address] RoadDublin [place] [id number] Bilirubin Ql (U) Negative Normal Comprehe nsive Internal Medicine Work Phone: Comment on above: PATIENT WAS FASTINGP ERFORMED BY: [facility] Esnfdw5073 [address] RoadDublin [place] [id number] Color Nom (U) Yellow Normal Comprehensi ve Internal Medicine Work Phone: Comment on above: PATIENT WAS FASTINGP ERFORMED BY: ORTIZ [facility] Ujqzbc5541 [address] RoadDublin [place] [id number] Glucose Ql (U) Negative Normal Comprehens trupti Internal Medicine Work Phone: Comment on above: PATIENT WAS FASTINGP ERFORMED BY: ORTIZ [facility] Niqdyy1152 [address] RoadDublin [place] [id number] Hemoglobin Ql (U) Negative Normal Compreh ensive Internal Medicine Work Phone: Comment on above: PATIENT WAS FASTINGP ERFORMED BY: ORTIZ Ameyaaustyn Ctgztf9372 [facility] [id number] Ketones Ql (U) Negative Normal Comprehens trupti Internal Medicine Work Phone: Comment on above: PATIENT WAS FASTINGP ERFORMED BY: ORTIZ MeenaAleksandr CroweHlzcop9163 [facility] [id number] Leukocyte esterase Test strip Ql (U) Negative Normal [facility] Work Phone: Comment on above: PATIENT WAS FASTINGP ERFORMED BY: ORTIZ Crowelin6370 [facility] [id number] Microscopic observation LM Nom (Urine sed) See below: Normal [facility] Work Phone: Comment on above: Microscopic was derrick cated and was performed. PATIENT WAS FASTINGP ERFORMED BY: ORTIZ AmeyaWeisman Children's Rehabilitation HospitalHptonj0887 [facility] [id number] Nitrite Ql (U) Negative Normal Comprehens trupti Internal Medicine Work Phone: Comment on above: PATIENT WAS FASTINGP ERFORMED BY: ORTIZ Munguia Mafhzl5573 [facility] [id number] pH (U) 5.5 [pH] Normal 5.0-7.5 [facility] Work Phone: Comment on above: PATIENT WAS FASTINGP ERFORMED BY: ORTIZ Munguia Mgysup7485 [facility] [id number] Protein Ql (U) 1+ Abnormal Comprehens trupti Internal Medicine Work Phone: Comment on above: PATIENT WAS FASTINGP ERFORMED BY: ORTIZ [facility] Awqzcq5571 [facility] [id number] Specific gravity Relative Density (U) 1.029 1 Normal 1.005-1.03 0 [facility] Work Phone: Comment on above: PATIENT WAS FASTINGP ERFORMED BY: ORTIZ [place]Br[place] [id number] [place] [id number] Urobilinogen Test strip mass conc (U) 0.2 mg/dL Normal 0.2-1.0 Comprehensiv e Internal Medicine Work Phone: Comment on above: PATIENT WAS FASTINGP ERFORMED BY: [facility] Wgcxdt8432 [address] Teamer.netCritical [facility] Hospitalin [place] [id number] VITAMIN B-12 (CYANOCOBALAMIN ) ([id number])Ordered By: Ssis Ssrs Developer on 12-05-2015 Cobalamin (Vitamin B12) mass conc 465 pg/mL Normal 211-946 [facility] Work Phone: Comment on above: PATIENT WAS FASTINGP ERFORMED BY: ORTIZ [facility] Emogha[address] [place] [id number] Fecal Occult Blood , Office (47185)Ordered By: Gabino Bullock on 11-08-2015 Hemoglobin.gastrointes tinal Ql (St) Negative Normal [facility] Work Phone: VITAMIN B-12 (CYANOCOBALAMIN ) (74375)Ordered By: Ssis Ssrs Developer on 08-27-2015 Cobalamin (Vitamin B12) mass conc 919 pg/mL Normal 211-946 [facility] Work Phone: Comment on above: PATIENT NOT FASTINGP ERFORMED BY: [facility] Evesjm1940 [address] Teamer.netAtrium Health [id number] Information: [id number] 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 Anion gap 6 mmol/L Invalid Interpretation Code [facility] Work Phone: basophils as percent of blood leukocytes, manual count 0.5 % Invalid Interpretation Code [facility] Work Phone: BUN/Creatinine Ratio 18.8 mg/mg Invalid Interpretation Code [facility] Work Phone: Calcium 8.9 mg/dL Invalid Interpretation Code [facility] Work Phone: Chloride 106 mmol/L Invalid Interpretation Code [facility] Work Phone: CO2 31.0 mmol/L Invalid Interpretation Code [facility] Work Phone: Creatinine 0.85 mg/dL Invalid Interpretation Code [facility] Work Phone: eosinophils as percent of blood leukocytes, manual count 5.4 % High [facility] Work Phone: Erythrocytes (RBC) 4.14 10*6/uL Low [facility] Work Phone: Glucose 102 mg/dL Invalid Interpretation Code [facility] Work Phone: Hematocrit (HCT) 38.6 % Invalid Interpretation Code [facility] Work Phone: Hemoglobin (HGB) 12.6 g/dL Invalid Interpretation Code [facility] Work Phone: Lymphocytes/100 leukocytes 27.3 % Invalid Interpretation Code [facility] Work Phone: MCH 30.4 pg Invalid Interpretation Code [facility] Work Phone: MCHC 32.6 g/dL Invalid Interpretation Code [facility] Work Phone: MCV 93.2 fL Invalid Interpretation Code [facility] Work Phone: Monocytes/100 leukocytes 10.2 % High [facility] Work Phone: neutrophils, band form as percent of blood leukocytes, manual count 56.4 % Invalid Interpretation Code [facility] Work Phone: Platelets 162 10*3/mm3 Invalid Interpretation Code [facility] Work Phone: PMV by Bernard 9.6 fL Invalid Interpretation Code [facility] Work Phone: Potassium 4.3 mmol/L Invalid Interpretation Code [facility] Work Phone: RDW-CA 12.9 % Invalid Interpretation Code [facility] Work Phone: Sodium 143 mmol/L Invalid Interpretation Code [facility] Work Phone: Urea nitrogen 16 mg/dL Invalid Interpretation Code [facility] Work Phone: WBC (Leukocytes) 6.3 10*3/uL Invalid Interpretation Code [facility] Work Phone: Clinical 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 Cholesterol 136 mg/dL Invalid Interpretation Code [facility] Work Phone: HDL Cholesterol 49 mg/dL Invalid Interpretation Code [facility] Work Phone: LDL Cholesterol 66 mg/dL Invalid Interpretation Code [facility] Work Phone: Triglyceride 105 mg/dL Invalid Interpretation Code [facility] Work Phone: very low density lipoproteins 21 mg/dL Invalid Interpretation Code [facility] Work Phone: CBC W/AUTO DIFF WBC (56055)O rdered By: Ssis Ssrs Developer on 10-19-2014 Basophils #/vol (Bld) 0.0 {x10E3/uL} Normal 0.0-0.2 [facility] Work Phone: Comment on above: PATIENT WAS FASTINGP ERFORMED BY: [employer] CenterQvxsby7488 [facility] [id number] Information: [id number] Basophils/100 WBC (Bld) 1 % Normal [facility] Work Phone: Comment on above: PATIENT WAS FASTINGP ERFORMED BY: [employer] HospitalWpqzfo15[address] [place] [address] [id number] Information: [id number] Eosinophils #/vol (Bld) 0.2 {x10E3/uL} Normal 0.0-0.4 [facility] Work Phone: Comment on above: PATIENT WAS FASTINGP ERFORMED BY: [employer] HospitalUfjwdu2309 [facility] [id number] Information: [id number] Eosinophils/100 WBC (Bld) 5 % Normal [facility] Work Phone: Comment on above: PATIENT WAS FASTINGP ERFORMED BY: [facility]6370 [facility] [id number] Information: [id number] Erythrocyte distribution width Ratio (RBC) 13.5 % Normal 12.3-15.4 [facility] Work Phone: Comment on above: PATIENT WAS FASTINGP ERFORMED BY: ORTIZ [place]oBrandy [place] [id number] [facility] [id number] Information: [id number] Hematocrit Volume Fraction (Bld) 39.1 % Normal 34.0-46.6 [facility] Work Phone: Comment on above: PATIENT WAS FASTINGP ERFORMED BY: [address] [id number] Information: [id number] Hemoglobin mass conc (Bld) 12.9 g/dL Normal 11.1-15.9 [facility] Work Phone: Comment on above: PATIENT WAS FASTINGP ERFORMED BY: [address] [id number] Information: [id number] Immature granulocytes #/vol (Bld) 0.0 {x10E3/uL} Normal 0.0-0.1 [facility] Work Phone: Comment on above: PATIENT WAS FASTINGP ERFORMED BY: [address] [id number] Information: [id number] Immature granulocytes/100 WBC (Bld) 0 % Normal [facility] Work Phone: Comment on above: PATIENT WAS FASTINGP ERFORMED BY: [address] [id number] Information: [id number] Lymphocytes #/vol (Bld) 1.2 {x10E3/uL} Normal 0.7-3.1 [facility] Work Phone: Comment on above: PATIENT WAS FASTINGP ERFORMED BY: [address] [id number] Information: [id number] Lymphocytes/100 WBC (Bld) 25 % Normal [facility] Work Phone: Comment on above: PATIENT WAS FASTINGP ERFORMED BY: ORTIZ [facility]6370 [facility] [id number] Information: [id number] MCH Entitic mass (RBC) 29.8 pg Normal 26.6-33.0 Co [facility] Internal Medicine Work Phone: Comment on above: PATIENT WAS FASTINGP ERFORMED BY: ORTIZ [address] [id number] Information: [id number] MCHC mass conc (RBC) 33.0 g/dL Normal 31.5-35.7 [facility] Internal Medicine Work Phone: Comment on above: PATIENT WAS FASTINGP ERFORMED BY: ORTIZ [place] [id number] [facility] [id number] Information: [id number] MCV Entitic volume (RBC) 90 fL Normal 79-97 [facility] Work Phone: Comment on above: PATIENT WAS FASTINGP ERFORMED BY: ORTIZ [place] [id number] [facility] [id number] Information: [id number] Monocytes #/vol (Bld) 0.5 {x10E3/uL} Normal 0.1-0.9 [facility] Work Phone: Comment on above: PATIENT WAS FASTINGP ERFORMED BY: ORTIZ [place] [id number] [facility] [id number] Information: [id number] Monocytes/100 WBC (Bld) 10 % Normal [facility] Work Phone: Comment on above: PATIENT WAS FASTINGP ERFORMED BY: [place] [id number] [facility] [id number] Information: [id number] Neutrophils #/vol (Bld) 2.9 {x10E3/uL} Normal 1.4-7.0 [facility] Work Phone: Comment on above: PATIENT WAS FASTINGP ERFORMED BY: [facility]6370 [facility] [id number] Information: [id number] Neutrophils/100 WBC (Bld) 59 % Normal [facility] Work Phone: Comment on above: PATIENT WAS FASTINGP ERFORMED BY: [facility]6370 [facility] [id number] Information: [id number] Platelets #/vol (Bld) 196 {x10E3/uL} Normal 150-379 [facility] Work Phone: Comment on above: PATIENT WAS FASTINGP ERFORMED BY: [place] [id number] [facility] [id number] Information: [id number] RBC #/vol (Bld) 4.33 {x10E6/uL} Normal 3.77-5.28 [facility] Internal Medicine Work Phone: Comment on above: PATIENT WAS FASTINGP ERFORMED BY: [facility]6370 [facility] [id number] Information: [id number] WBC #/vol (Bld) 4.9 {x10E3/uL} Normal 3.4-10.8 [facility] Internal Medicine Work Phone: Comment on above: PATIENT WAS FASTINGP ERFORMED BY: [place] [id number] [facility] [id number] Information: [id number] LIPID PANEL (17270)Ordered B y: Ssis Ssrs Developer on 10-19-2014 Cholesterol in HDL mass conc 47 mg/dL Normal [facility] Work Phone: Comment on above: According to ATP-III Guidelines, HDL-C >59 mg/dL is considered anegative risk factor for CHD. PATIENT WAS FASTINGP ERFORMED BY: [facility]6370 [facility] [id number] Cholesterol in LDL mass conc 148 mg/dL Abnormal 0-99 [facility] Work Phone: Comment on above: PATIENT WAS FASTINGP ERFORMED BY: ORTIZ LabAleksandr CroweLvwvqz8945 [address] RoadDublin [place] [id number] Cholesterol in LDL/Cholesterol in HDL mass ratio 3.1 {ratio_units} Normal 0.0-3.2 [facility] Work Phone: Comment on above: LDL/HDL Ratio Men Wo men 1/2 Avg.Risk 1.0 1.5 Avg.Risk 3.6 3.2 2X Avg.Risk 6.2 5.0 3X Avg.Risk 8.0 6.1 PATIENT WAS FASTINGP ERFORMED BY: ORTIZ LabAleksandr CroweAkokhh9295 [address] RoadDublin [place] [id number] Cholesterol in VLDL mass conc 36 mg/dL Normal 5-40 [facility] Work Phone: Comment on above: PATIENT WAS FASTINGP ERFORMED BY: ORTIZ LabAleksandr CroweGuewni6189 [address] Teamer.netDublin [place] [id number] Cholesterol mass conc 231 mg/dL Abnormal 100-199 Com prehensive Internal Medicine Work Phone: Comment on above: PATIENT WAS FASTINGP ERFORMED BY: ORTIZ LabAleksandr CroweEsemxl3188 [address] Teamer.netDublin [place] [id number] Triglyceride mass conc 179 mg/dL Abnormal 0-149 Co [facility]linensive [facility] Work Phone: Comment on above: PATIENT WAS FASTINGP ERFORMED BY: ORTIZ LabAleksandr Sxaiwt5970 [address] [facility] [place] [id number] METABOLIC PANEL, COMPREHENSI VE (14236)Ordered By: Ssis Ssrs Developer on 10-19-2014 Albumin mass conc 4.3 g/dL Normal 3.5-4.8 Compreh ensive Internal Medicine Work Phone: Comment on above: PATIENT WAS FASTINGP ERFORMED BY: ORTIZ [facility] Rkmyhf7324 [address] RoadDublin [place] [id number] Albumin/Globulin mass ratio 2.2 {ratio} Normal 1.1-2.5 [facility] Work Phone: Comment on above: PATIENT WAS FASTINGP ERFORMED BY: ORTIZ [facility] Iemovk2515 [address] Roadblin [place] [id number] ALP enzyme act/vol 73 [iU]/L Normal 39-117 [facility] Work Phone: Comment on above: PATIENT WAS FASTINGP ERFORMED BY: ORTIZ [facility] Adnfid4309 [address] RoadDublin [place] [id number] ALT enzyme act/vol 8 [iU]/L Normal 0-32 [facility] Internal Medicine Work Phone: Comment on above: PATIENT WAS FASTINGP ERFORMED BY: [facility] Jvxoyw6591 [address] Roadblin [place] [id number] AST enzyme act/vol 15 [iU]/L Normal 0-40 [facility] Internal Medicine Work Phone: Comment on above: PATIENT WAS FASTINGP ERFORMED BY: ORTIZ [facility] Kogpdo2861 [address] Roadblin [place] [id number] Bilirubin mass conc 0.3 mg/dL Normal 0.0-1.2 Compr ensive Internal Medicine Work Phone: Comment on above: PATIENT WAS FASTINGP ERFORMED BY: [facility] Kxcjog1682 [address] Roadblin [place] [id number] Calcium mass conc 9.6 mg/dL Normal 8.7-10.3 Compreh [facility] centerive Internal [facility] Work Phone: Comment on above: PATIENT WAS FASTINGP ERFORMED BY: [facility] Fpaunx6056 [address] Roadblin [place] [id number] Chloride molar conc 99 mmol/L Normal 97-108 Compr [facility] Internal Medicine Work Phone: Comment on above: PATIENT WAS FASTINGP ERFORMED BY: [facility] Cqgmah6554 [address] RoadDublin [place] [id number] CO2 molar conc 27 mmol/L Normal 18-29 Comprehens trupti Internal Medicine Work Phone: Comment on above: PATIENT WAS FASTINGP ERFORMED BY: [facility] Zhonzd8735 [address] RoadDublin [place] [id number] Creatinine mass conc 0.91 mg/dL Normal 0.57-1.00 [facility] Work Phone: Comment on above: PATIENT WAS FASTINGP ERFORMED BY: [facility] Meybdi[address] [facility] Hospitalblin [place] [id number] GFR/1.73 sq M predicted among blacks CKD-EPI vol rate/area (S/P/Bld) 71 mL/min/1.73 Normal [facility] Work Phone: Comment on above: PATIENT WAS FASTINGP ERFORMED BY: [facility] Tjnzlb[address] [facility] Hospitalblin [place] [id number] GFR/1.73 sq M predicted among non-blacks CKD-EPI vol rate/area (S/P/Bld) 62 mL/min/1.73 Normal Comprehensiv e Internal Medicine Work Phone: Comment on above: PATIENT WAS FASTINGP ERFORMED BY: [facility] Znmdyo[address] [facility] [id number] Globulin mass conc (S) 2.0 g/dL Normal 1.5-4.5 Co mprehensive Internal Medicine Work Phone: Comment on above: PATIENT WAS FASTINGP ERFORMED BY: [facility] Zmueby4935 [facility] [place] [id number] Glucose mass conc 82 mg/dL Normal 65-99 Compreh ensive Internal Medicine Work Phone: Comment on above: PATIENT WAS FASTINGP ERFORMED BY: [facility] Bzqqxy5741 [facility] [place] [id number] Potassium molar conc 4.6 mmol/L Normal 3.5-5.2 Comp rehensive Internal Medicine Work Phone: Comment on above: PATIENT WAS FASTINGP ERFORMED BY: [facility] Kugmqq6501 [facility] [place] [id number] Protein mass conc 6.3 g/dL Normal 6.0-8.5 Compreh ensive Internal Medicine Work Phone: Comment on above: PATIENT WAS FASTINGP ERFORMED BY: [facility] Duosqd3453 [address] [facility] [place] [id number] Sodium molar conc 141 mmol/L Normal 134-144 Compreh ensive Internal Medicine Work Phone: Comment on above: PATIENT WAS FASTINGP ERFORMED BY: [facility] Ijyqro1027 [address] RoadDublin [place] [id number] Urea nitrogen mass conc 11 mg/dL Normal 8-27 [facility] Work Phone: Comment on above: PATIENT WAS FASTINGP ERFORMED BY: [facility] Oakbta6605 [address] RoadDublin [place] [id number] Urea nitrogen/Creatinine mass ratio 12 mg/mg Normal 11-26 [facility] Work Phone: Comment on above: PATIENT WAS FASTINGP ERFORMED BY: [facility] Qqsadk2655 [address] RoadDublin [place] [id number] MICROALBUMINOrdered By: Physcient em Hybrid Tester on 10-19-2014 Albumin DL <= 20 mg/L mass conc (U) 10.7 ug/mL Normal 0.0-17.0 [facility] Work Phone: Comment on above: PATIENT WAS FASTINGP ERFORMED BY: [facility] Ygajkv3946 [address] RoadDublin [place] [id number] Albumin/Creatinine mass ratio (U) 8.1 {mg/g_creat} Normal 0.0-30.0 [facility] Work Phone: Comment on above: PATIENT WAS FASTINGP ERFORMED BY: LabKellie Bfapra5597 [address] RoadDublin [place] [id number] Creatinine mass conc (U) 132.3 mg/dL Normal 15.0-278.0 [facility] Work Phone: Comment on above: PATIENT WAS FASTINGP ERFORMED BY: [facility] Yfbuax2069 [address] RoadDublin [place] [id number] TSH ([id number])Ordered By: Physciente m Hybrid Tester on 10-19-2014 Thyrotropin Qn 1.170 {uIU/mL} Normal 0.450-4.50 0 [facility] Work Phone: Comment on above: PATIENT WAS FASTINGP ERFORMED BY: [facility] Suzsdf1009 [address] RoadDublin [place] [id number] URINALYSIS, W/ MICRO ([id number]) Ordered By: Ssis Ssrs Developer on 10-19-2014 Appearance Nom (U) Clear Normal Compre hensive Internal Medicine Work Phone: Comment on above: PATIENT WAS FASTINGP ERFORMED BY: ORTIZ Crowelin6370 [address] RoadDublin [place] [id number] Bilirubin Ql (U) Negative Normal Comprehe nsive Internal Medicine Work Phone: Comment on above: PATIENT WAS FASTINGP ERFORMED BY: ORTIZ Crowelin6[address] RoadDublin [place] [id number] Color Nom (U) Yellow Normal Comprehensi ve Internal Medicine Work Phone: Comment on above: PATIENT WAS FASTINGP ERFORMED BY: ORTIZ LabAleksandr CroweSghvqm0056 Rodriguez RoadDublin [place] [id number] Glucose Ql (U) Negative Normal Comprehens trupti Internal Medicine Work Phone: Comment on above: PATIENT WAS FASTINGP ERFORMED BY: ORTIZ Crowelin6[address] RoadDublin [place] [id number] Hemoglobin Ql (U) Negative Normal Compreh ensive Internal Medicine Work Phone: Comment on above: PATIENT WAS FASTINGP ERFORMED BY: ORTIZ Crowelin6[address] RoadDublin [place] [id number] Ketones Ql (U) Negative Normal Comprehens trupti Internal Medicine Work Phone: Comment on above: PATIENT WAS FASTINGP ERFORMED BY: ORTIZ Crowelin6[address] RoadDublin [place] [id number] Leukocyte esterase Test strip Ql (U) Negative Normal [facility] Work Phone: Comment on above: PATIENT WAS FASTINGP ERFORMED BY: ORTIZ LabAleksandr CroweCaykow0581 [address] RoadDublin [place] [id number] Microscopic observation LM Nom (Urine sed) See below: Normal [facility] Work Phone: Comment on above: Microscopic was derrick cated and was performed. PATIENT WAS FASTINGP ERFORMED BY: ORTIZ LabAleksandr CroweTyxbcu3423 Rodriguez RoadDublin [place] [id number] Microscopic observation LM Nom (Urine sed) MICRON Normal [facility] Work Phone: Comment on above: Microscopic follows if indicated. PATIENT WAS FASTINGP ERFORMED BY: ORTIZ [facility] Vpfenw8634 Rodriguez RoadDublin [place] [id number] Nitrite Ql (U) Negative Normal Comprehens trupti Internal Medicine Work Phone: Comment on above: PATIENT WAS FASTINGP ERFORMED BY: ORTIZ [facility] Ibkoun1383 [address] RoadDublin [place] [id number] pH (U) 7.0 [pH] Normal 5.0-7.5 [facility] Work Phone: Comment on above: PATIENT WAS FASTINGP ERFORMED BY: CB [facility] Ulbige8960 [address] RoadDublin [place] [id number] Protein Ql (U) Trace Normal Comprehens trupti Internal Medicine Work Phone: Comment on above: PATIENT WAS FASTINGP ERFORMED BY: ORTIZ [facility] Htnkyj7549 [address] RoadDublin [place] [id number] Specific gravity Relative Density (U) 1.017 1 Normal 1.005-1.03 0 [facility] Work Phone: Comment on above: PATIENT WAS FASTINGP ERFORMED BY: ORTIZ [facility] Ojrczn8010 [address] RoadDublin [place] [id number] Urobilinogen Test strip mass conc (U) 0.2 mg/dL Normal 0.0-1.9 Comprehensiv e Internal Medicine Work Phone: Comment on above: PATIENT WAS FASTINGP ERFORMED BY: CB [facility] Xbxtcd8902 [address] RoadDublin [place] [id number] Vitamin D Hydroxy (29080)Ord ered By: Ssis Ssrs Developer on 10-19-2014 25-Hydroxyvitamin D2+25-Hydroxyvitamin D3 mass conc 39.6 ng/mL Normal 30.0-100.0 [facility] Work Phone: Comment on above: Vitamin D deficiency has been defined by the [place] of[place]icine and an Endocrine Society practice guideline as alevel of serum 25-OH vitamin D less than 20 ng/mL (1,2).The Endocrine Society went on to further define vitamin Dinsufficiency as a level between 21 and 29 ng/mL (2).1. IOM ([place] of Medicine). 2010. Dietary reference intakes for calcium and D. [place]: The National Academies Press.2. Allie MF, Emile PONCE, Natalie POOLE, et al. Evaluation, treatment, and prevention of vitamin D deficiency: an Endocrine Society clinical practice guideline. JCEM. 2010; 96(7):1911-30. PATIENT WAS FASTINGP ERFORMED BY: LabCoWeisman Children's Rehabilitation HospitalGzxivo8400 [facility] [id number] FECAL OCCULT HGB ASSAY- tube s sent home (57066)Ordered By: Cady Huber on 10-12-2014 Hemoglobin.gastrointes tinal Ql (St) Negative Normal [facility] Work Phone: Office Visit: [facility] 10-10-19 15 cardiac risk group C Invalid Interpretation Code [facility] Work Phone: General cardiovascular disease 10Y risk [#] [place]D'Agostallie N/A Invalid Interpretation Code [facility] Work Phone: Replaced Document: Escobar Watsonon 10-10-2014 electrocardiogram interpretation Sinus Bradycardia WITHIN NORMAL LIMITS Invalid Interpretation Code [facility] Work Phone: GE use only - for LinkLogic import when terms are not otherwise specified 438 ms Invalid Interpretation Code [facility] Work Phone: P wave axis, electrocardiogram 33 deg Invalid Interpretation Code [facility] Work Phone: ID interval, electrocardiogram 164 ms Invalid Interpretation Code [facility] Work Phone: Pulse (Heart Rate) 55 /min Invalid Interpretation Code [facility] Work Phone: QRS axis, electrocardiogram 7 deg Invalid Interpretation Code [facility] Work Phone: QRS duration, electrocardiogram 90 ms Invalid Interpretation Code [facility] Work Phone: QT interval, electrocardiogram new path ms Invalid Interpretation Code [facility] Work Phone: T wave axis, electrocardiogram 41 deg Invalid Interpretation Code [facility] Work Phone: CBC WITH MANUAL DIFF (56017) Ordered By: Ssis Ssrs Developer on 06-26-2014 Basophils #/vol (Bld) 0.0 {x10E3/uL} Normal 0.0-0.2 [facility] Work Phone: Comment on above: PATIENT WAS FASTINGP ERFORMED BY: LabCoWeisman Children's Rehabilitation HospitalQtgtrv4482 [facility] [id number] Information: [id number] Basophils/100 WBC (Bld) 1 % Normal [facility] Work Phone: Comment on above: PATIENT WAS FASTINGP ERFORMED BY: LabCoWeisman Children's Rehabilitation HospitalOsvwcd0237 [facility] [id number] Information: [id number] Eosinophils #/vol (Bld) 0.2 {x10E3/uL} Normal 0.0-0.4 [facility] Work Phone: Comment on above: PATIENT WAS FASTINGP ERFORMED BY: LabCorewell [facility]eland Hospital6370 [facility] [id number] Information: [id number] Eosinophils/100 WBC (Bld) 3 % Normal [facility] Work Phone: Comment on above: PATIENT WAS FASTINGP ERFORMED BY: LabCorewell Health Zeeland Hospital6370 [facility] [id number] Information: [id number] Erythrocyte distribution width Ratio (RBC) 13.4 % Normal 12.3-15.4 [facility] Work Phone: Comment on above: PATIENT WAS FASTINGP ERFORMED BY: LabCo Heaqjn9406 [facility] [id number] Information: [id number] Hematocrit Volume Fraction (Bld) 40.5 % Normal 34.0-46.6 [facility] Work Phone: Comment on above: PATIENT WAS FASTINGP ERFORMED BY: LabCo Evyinr7601 [facility] [id number] Information: [id number] Hemoglobin mass conc (Bld) 13.1 g/dL Normal 11.1-15.9 [facility] Work Phone: Comment on above: PATIENT WAS FASTINGP ERFORMED BY: LabCorewell [facility]eland Hospital6370 [facility] [id number] Information: [id number] Immature granulocytes #/vol (Bld) 0.0 {x10E3/uL} Normal 0.0-0.1 [facility] Work Phone: Comment on above: PATIENT WAS FASTINGP ERFORMED BY: [address] [id number] Information: [id number] Immature granulocytes/100 WBC (Bld) 0 % Normal [facility] Work Phone: Comment on above: PATIENT WAS FASTINGP ERFORMED BY: [address] [id number] Information: [id number] Lymphocytes #/vol (Bld) 1.1 {x10E3/uL} Normal 0.7-3.1 [facility] Work Phone: Comment on above: PATIENT WAS FASTINGP ERFORMED BY: [place] [id number] [facility] [id number] Information: [id number],[id number] Lymphocytes/100 WBC (Bld) 21 % Normal [facility] Work Phone: Comment on above: PATIENT WAS FASTINGP ERFORMED BY: [address] [id number] Information: [id number],[id number] MCH Entitic mass (RBC) 29.4 pg Normal 26.6-33.0 [facility] Internal Medicine Work Phone: Comment on above: PATIENT WAS FASTINGP ERFORMED BY: [place] [id number] [facility] [id number] Information: [id number] MCHC mass conc (RBC) 32.3 g/dL Normal 31.5-35.7 [facility] Internal Medicine Work Phone: Comment on above: PATIENT WAS FASTINGP ERFORMED BY: ORTIZ Ameya Vcmvmc0750 [facility] [id number] Information: [id number] MCV Entitic volume (RBC) 91 fL Normal 79-97 [facility] Work Phone: Comment on above: PATIENT WAS FASTINGP ERFORMED BY: [address] [id number] Information: [id number] Monocytes #/vol (Bld) 0.5 {x10E3/uL} Normal 0.1-0.9 [facility] Work Phone: Comment on above: PATIENT WAS FASTINGP ERFORMED BY: ORTIZ [address] [id number] Information: [id number] Monocytes/100 WBC (Bld) 10 % Normal [facility] Work Phone: Comment on above: PATIENT WAS FASTINGP ERFORMED BY: ORTIZ [address] [id number] Information: [id number],[id number] Neutrophils #/vol (Bld) 3.7 {x10E3/uL} Normal 1.4-7.0 [facility] Work Phone: Comment on above: PATIENT WAS FASTINGP ERFORMED BY: [address] [id number] Information: [id number],[id number] Neutrophils/100 WBC (Bld) 65 % Normal [facility] Work Phone: Comment on above: PATIENT WAS FASTINGP ERFORMED BY: [address] [id number] Information: [id number] Platelets #/vol (Bld) 198 {x10E3/uL} Normal 150-379 [facility] Work Phone: Comment on above: PATIENT WAS FASTINGP ERFORMED BY: ORTIZ Hou Hyltgs6396 [facility] [id number] Information: [id number] RBC #/vol (Bld) 4.45 {x10E6/uL} Normal 3.77-5.28 [facility] Internal Medicine Work Phone: Comment on above: PATIENT WAS FASTINGP ERFORMED BY: ORTIZ [facility]oOz[facility] Hospital Ishzez0967 [facility] [id number] Information: [id number],[id number] WBC #/vol (Bld) 5.6 {x10E3/uL} Normal 3.4-10.8 [facility] Internal Medicine Work Phone: Comment on above: PATIENT WAS FASTINGP ERFORMED BY: ORTIZ [facility]oOz[facility] Hospital Rumcnu7199 [facility] [id number] Information: [id number],[id number] LIPID PANEL (02615)Ordered B y: Ssis Ssrs Developer on 06-26-2014 Cholesterol in HDL mass conc 46 mg/dL Normal [facility] Work Phone: Comment on above: According to ATP-III Guidelines, HDL-C >59 mg/dL is considered anegative risk factor for CHD. PATIENT WAS FASTINGP ERFORMED BY: ORTIZ Hou Nuhzsi0002 [facility] [id number] Cholesterol in LDL mass conc 130 mg/dL Abnormal 0-99 [facility] Work Phone: Comment on above: PATIENT WAS FASTINGP ERFORMED BY: [facility]6370 [facility] [id number] Cholesterol in LDL/Cholesterol in HDL mass ratio 2.8 {ratio_units} Normal 0.0-3.2 [facility] Work Phone: Comment on above: LDL/HDL Ratio Men Wo men 1/2 Avg.Risk 1.0 1.5 Avg.Risk 3.6 3.2 2X Avg.Risk 6.2 5.0 3X Avg.Risk 8.0 6.1 PATIENT WAS FASTINGP ERFORMED BY: [place] [id number] [facility] [id number] Cholesterol in VLDL mass conc 41 mg/dL Abnormal 5-40 [facility] Work Phone: Comment on above: PATIENT WAS FASTINGP ERFORMED BY: ORTIZ LabAleksandr CroweDpoova8096 [facility] [id number] Cholesterol mass conc 217 mg/dL Abnormal 100-199 Com prehensive Internal Medicine Work Phone: Comment on above: PATIENT WAS FASTINGP ERFORMED BY: ORTIZ [facility] Nquzvc5470 [facility] [id number] Triglyceride mass conc 203 mg/dL Abnormal 0-149 [facility] hospitalehensive [facility] Work Phone: Comment on above: PATIENT WAS FASTINGP ERFORMED BY: ORTIZ LabAleksandr CrowePkubid1749 [facility] [id number] METABOLIC PANEL, COMPREHENSI VE (62157)Ordered By: Ssis Ssrs Developer on 06-26-2014 Albumin mass conc 4.0 g/dL Normal 3.5-4.8 Compreh [facility] Internal Medicine Work Phone: Comment on above: PATIENT WAS FASTINGP ERFORMED BY: ORTIZ [facility] Pasctw3074 [facility] [id number] Albumin/Globulin mass ratio 1.7 {ratio} Normal 1.1-2.5 [facility] Internal Medicine Work Phone: Comment on above: PATIENT WAS FASTINGP ERFORMED BY: ORTIZ [facility] Fryaqt8042 [facility] [id number] ALP enzyme act/vol 80 [iU]/L Normal 39-117 [facility] Work Phone: Comment on above: PATIENT WAS FASTINGP ERFORMED BY: ORTIZ [facility] Lmjksa[address] [facility] [id number] ALT enzyme act/vol 8 [iU]/L Normal 0-32 [facility] Internal Medicine Work Phone: Comment on above: PATIENT WAS FASTINGP ERFORMED BY: ORTIZ [facility] Csurns6923 [facility] [id number] AST enzyme act/vol 10 [iU]/L Normal 0-40 Compre [facility] Internal Medicine Work Phone: Comment on above: PATIENT WAS FASTINGP ERFORMED BY: ORTIZ LabCoaustyn ChesterHcyahr[address] [facility] [id number] Bilirubin mass conc 0.3 mg/dL Normal 0.0-1.2 Compr ensive Internal Medicine Work Phone: Comment on above: PATIENT WAS FASTINGP ERFORMED BY: ORTIZ LabCoaustyn ChesterCgxzyj[address] [facility] [id number] Calcium mass conc 9.4 mg/dL Normal 8.6-10.2 Compreh [facility] centerive Internal [facility] Work Phone: Comment on above: PATIENT WAS FASTINGP ERFORMED BY: ORTIZ Chester6370 [facility] [id number] Chloride molar conc 100 mmol/L Normal 97-108 Compr [facility] Internal Medicine Work Phone: Comment on above: PATIENT WAS FASTINGP ERFORMED BY: ORTIZ Nilda Crowelin6370 [facility] [id number] CO2 molar conc 26 mmol/L Normal 18-29 Comprehens trupti Internal Medicine Work Phone: Comment on above: PATIENT WAS FASTINGP ERFORMED BY: ORTIZ Chester6370 [facility] [id number] Creatinine mass conc 0.80 mg/dL Normal 0.57-1.00 Comp [facility] Internal Medicine Work Phone: Comment on above: PATIENT WAS FASTINGP ERFORMED BY: ORTIZ [facility] Egwlef1540 [facility] [id number] GFR/1.73 sq M predicted among blacks CKD-EPI vol rate/area (S/P/Bld) 83 mL/min/1.73 Normal [facility] Work Phone: Comment on above: PATIENT WAS FASTINGP ERFORMED BY: ORTIZ [facility] Rjifkf4964 [facility] [id number] GFR/1.73 sq M predicted among non-blacks CKD-EPI vol rate/area (S/P/Bld) 72 mL/min/1.73 Normal Comprehensiv e Internal Medicine Work Phone: Comment on above: PATIENT WAS FASTINGP ERFORMED BY: ORTIZ Ameyaaustyn rCoweCaisen6758 [address] [facility] [place] [id number] Globulin mass conc (S) 2.3 g/dL Normal 1.5-4.5 Co mprehensive Internal Medicine Work Phone: Comment on above: PATIENT WAS FASTINGP ERFORMED BY: ORTIZ Nilda Enryzf48[address] [facility] [place] [id number] Glucose mass conc 90 mg/dL Normal 65-99 Compreh ensive Internal Medicine Work Phone: Comment on above: PATIENT WAS FASTINGP ERFORMED BY: ORTIZ MeenaAleksandr CroweXkiyuu7[address] [facility] [id number] Potassium molar conc 4.0 mmol/L Normal 3.5-5.2 Comp rehensive Internal Medicine Work Phone: Comment on above: PATIENT WAS FASTINGP ERFORMED BY: ORTIZ Crowelin[address] [facility] [id number] Protein mass conc 6.3 g/dL Normal 6.0-8.5 Compreh ensive Internal Medicine Work Phone: Comment on above: PATIENT WAS FASTINGP ERFORMED BY: ORTIZ Ameyaaustyn CroweHzseco4557 [facility] [id number] Sodium molar conc 142 mmol/L Normal 134-144 Compreh ensive Internal Medicine Work Phone: Comment on above: PATIENT WAS FASTINGP ERFORMED BY: ORTIZ MeenaAleksandr CroweWnsxuu0[address] [facility] [id number] Urea nitrogen mass conc 10 mg/dL Normal 8-27 [facility] Work Phone: Comment on above: PATIENT WAS FASTINGP ERFORMED BY: ORTIZ LabAleksandr CroweWtbbrs[address] [facility] [id number] Urea nitrogen/Creatinine mass ratio 13 mg/mg Normal 11-26 [facility] Work Phone: Comment on above: PATIENT WAS FASTINGP ERFORMED BY: ORTIZ LabAleksandr CrowePfeokf5967 [facility] [place] [id number] MICROALBUMINOrdered By: Syst em Hybrid Tester on 06-26-2014 Albumin DL <= 20 mg/L mass conc (U) 12.3 ug/mL Normal 0.0-17.0 [facility] Work Phone: Comment on above: PATIENT WAS FASTINGP ERFORMED BY: ORTIZ [facility] Uknvgo7208 [address] Roadblin [place] [id number] Albumin/Creatinine mass ratio (U) 7.0 {mg/g_creat} Normal 0.0-30.0 [facility] Work Phone: Comment on above: PATIENT WAS FASTINGP ERFORMED BY: ORTIZ [facility] Squgjj8887 [address] Roadblin [place] [id number] Creatinine mass conc (U) 176.5 mg/dL Normal 15.0-278.0 [facility] Work Phone: Comment on above: PATIENT WAS FASTINGP ERFORMED BY: ORTIZ [facility] Fjyobf7236 Rodriguez RoadAtrium Health [id number] TSH ([id number])Ordered By: Syste m Hybrid Tester on 06-26-2014 Thyrotropin Qn 1.220 {uIU/mL} Normal 0.450-4.50 0 [facility] Work Phone: Comment on above: PATIENT WAS FASTINGP ERFORMED BY: ORTIZ [facility] Fqfisj1003 [address] [facility] [place] [id number] URINALYSIS, W/ MICRO ([id number]) Ordered By: Ssis Ssrs Developer on 06-26-2014 Appearance Nom (U) Clear Normal Compre hensive Internal Medicine Work Phone: Comment on above: PATIENT WAS FASTINGP ERFORMED BY: ORTIZ [facility] Aydxhp5262 [address] RoadDublin [place] [id number] Bilirubin Ql (U) Negative Normal Comprehe nsive Internal Medicine Work Phone: Comment on above: PATIENT WAS FASTINGP ERFORMED BY: ORTIZ [facility] Jltaua2395 [address] Roadblin [place] [id number] Color Nom (U) Yellow Normal Comprehensi ve Internal Medicine Work Phone: Comment on above: PATIENT WAS FASTINGP ERFORMED BY: CB [facility] Yrlvms0155 [address] RoadDublin [place] [id number] Glucose Ql (U) Negative Normal Comprehens trupti Internal Medicine Work Phone: Comment on above: PATIENT WAS FASTINGP ERFORMED BY: CB [facility] Ifxkgz1898 [address] RoadDublin [place] [id number] Hemoglobin Ql (U) Negative Normal Compreh ensive Internal Medicine Work Phone: Comment on above: PATIENT WAS FASTINGP ERFORMED BY: ORTIZ [facility] Mddbho3669 [address] RoadDublin [place] [id number] Ketones Ql (U) Negative Normal Comprehens trupti Internal Medicine Work Phone: Comment on above: PATIENT WAS FASTINGP ERFORMED BY: ORTIZ [facility] Vaksbu9260 [address] RoadDublin [place] [id number] Leukocyte esterase Test strip Ql (U) Negative Normal [facility] Work Phone: Comment on above: PATIENT WAS FASTINGP ERFORMED BY: ORTIZ [facility] Iycsto0856 [address] RoadDublin [place] [id number] Microscopic observation LM Nom (Urine sed) See below: Normal [facility] Work Phone: Comment on above: Microscopic was derrick cated and was performed. PATIENT WAS FASTINGP ERFORMED BY: ORTIZ [facility] Suzcvv4148 [address] RoadDublin [place] [id number] Microscopic observation LM Nom (Urine sed) MICRON Normal [facility] Work Phone: Comment on above: Microscopic follows if indicated. PATIENT WAS FASTINGP ERFORMED BY: CB [facility] Rfatow7479 [address] RoadDublin [place] [id number] Nitrite Ql (U) Negative Normal Comprehens trupti Internal Medicine Work Phone: Comment on above: PATIENT WAS FASTINGP ERFORMED BY: CB [facility] Wczdlo2909 [address] RoadDublin [place] [id number] pH (U) 5.5 [pH] Normal 5.0-7.5 [facility] Work Phone: Comment on above: PATIENT WAS FASTINGP ERFORMED BY: [facility] Qlkrkx9251 [address] RoadDublin [place] [id number] Protein Ql (U) Negative Normal Comprehens trupti Internal Medicine Work Phone: Comment on above: PATIENT WAS FASTINGP ERFORMED BY: [facility] Xinweb1463 [address] RoadDublin [place] [id number] Specific gravity Relative Density (U) 1.020 1 Normal 1.005-1.03 0 [facility] Work Phone: Comment on above: PATIENT WAS FASTINGP ERFORMED BY: CB [facility] Jefpdp9226 [address] RoadDublin [place] [id number] Urobilinogen Test strip mass conc (U) 0.2 mg/dL Normal 0.0-1.9 Comprehensiv e Internal Medicine Work Phone: Comment on above: PATIENT WAS FASTINGP ERFORMED BY: [facility] Jtgayw4551 [address] RoadDublin [place] [id number] Vitamin D Hydroxy (60236)Ord ered By: Ssis Ssrs Developer on 06-26-2014 25-Hydroxyvitamin D2+25-Hydroxyvitamin D3 mass conc 38.9 ng/mL Normal 30.0-100.0 [facility] Work Phone: Comment on above: Vitamin D deficiency has been defined by the [place] of[place]icine and an Endocrine Society practice guideline as alevel of serum 25-OH vitamin D less than 20 ng/mL (1,2).The Endocrine Society went on to further define vitamin Dinsufficiency as a level between 21 and 29 ng/mL (2).1. IOM ([place] of [employer]). 2010. Dietary reference intakes for calcium and D. [place]: The National Academies Press.2. Allie MF, Emile NC, Natalie POOLE, et al. Evaluation, treatment, and prevention of vitamin D deficiency: an Endocrine Society clinical practice guideline. JCEM. 2010; 96(7):1911-30. PATIENT WAS FASTINGP ERFORMED BY: CB [facility] Qbrrxu7512 [address] RoadDublin [place] [id number] URINE IBRAHIMA CULTURE-IDENTIFICA TN (97227)Ordered By: Ssis Ssrs Developer on 04-17-2014 Bacteria identified Cx Nom (U) Escherichia coli Abnormal [facility] Work Phone: Comment on above: Greater than 100,000 colony forming units per mL PATIENT NOT FASTINGP ERFORMED BY: [facility] Blcndb6302 [facility] [id number] Information: [id number] Bacteria identified Cx Nom (U) Final report Abnormal [facility] Work Phone: Comment on above: PATIENT NOT FASTINGP ERFORMED BY: [facility] Sojdkq9978 [address] Teamer.netAtrium Health [id number] Information: [id number] Other Antibiotic [facility] prehensive Internal Medicine Work Phone: Comment on above: S = Susceptibl e; I = Intermediate; R = Resistant P = Positive; N = Negative MICS are expressed in micrograms per mL Antibiotic RSLT#1 RSLT#2 RSLT#3 RSLT#4Amoxicillin/Clavulanic Acid SAmpicillin SCefepime SCeftriaxone SCefuroxime SCephalothin SCiprofloxacin SErtapenem SGentamicin SImipenem SLevofloxacin SNitrofurantoin SPiperacillin STetracycline STobramycin STrimethoprim/Sulfa S PATIENT NOT FASTINGP ERFORMED BY: LabAccelerarp Gsympq3730 [facility] [id number] Information: [id number] Urinalysis, Office (90177)Or dered By: Alyson Dixon on 04-17-2014 Bilirubin Ql (U) Negative Normal Comprehe nsive Internal Medicine Work Phone: Glucose Test strip mass conc (U) Negative Normal [facility] Work Phone: Hemoglobin Ql (U) Non Hemolyzed Moderate Normal [facility] Work Phone: Ketones Ql (U) Small Normal Comprehens trupti Internal Medicine Work Phone: Leukocyte esterase Test strip Ql (U) Moderate Normal [facility] Work Phone: Nitrite Ql (U) Negative Normal Comprehens trupti Internal Medicine Work Phone: pH (U) 5.0 [pH] Normal [facility] Work Phone: Protein Ql (U) 300 mg/dL Normal Comprehens trupti Internal Medicine Work Phone: Specific gravity Relative Density (U) 1.030 1 Abnormal Comprehensi Internal Medicine Work Phone: Urobilinogen mass/time (24H U) Normal Normal [facility] Work Phone: CBC WITH MANUAL DIFF ([id number]) Ordered By: Ssis Ssrs Developer on 04-06-2014 Basophils #/vol (Bld) 0.0 {x10E3/uL} Normal 0.0-0.2 [facility] Work Phone: Comment on above: PATIENT NOT FASTINGP ERFORMED BY: [facility] Hnyuxt4272 [address] Teamer.netAtrium Health [id number] Information: [id number] Basophils/100 WBC (Bld) 0 % Normal 0-3 [facility] Work Phone: Comment on above: PATIENT NOT FASTINGP ERFORMED BY: CB [facility] Ajxmdc[address] [facility] [id number] Information: [id number] Eosinophils #/vol (Bld) 0.1 {x10E3/uL} Normal 0.0-0.4 [facility] Work Phone: Comment on above: PATIENT NOT FASTINGP ERFORMED BY: CB [facility] Ziqavw[address] [facility] [id number] Information: [id number] Eosinophils/100 WBC (Bld) 2 % Normal 0-5 [facility] Work Phone: Comment on above: PATIENT NOT FASTINGP ERFORMED BY: CB [facility] Tijneu5021 [facility] [id number] Information: [id number] Erythrocyte distribution width Ratio (RBC) 13.5 % Normal 12.3-15.4 [facility] Work Phone: Comment on above: PATIENT NOT FASTINGP ERFORMED BY: ORTIZ RobledoCoaustyn Gonkof1514 [facility] [id number] Information: [id number] Hematocrit Volume Fraction (Bld) 38.1 % Normal 34.0-46.6 [facility] Work Phone: Comment on above: PATIENT NOT FASTINGP ERFORMED BY: [facility] Fmezfz8653 [facility] [id number] Information: [id number] Hemoglobin mass conc (Bld) 12.8 g/dL Normal 11.1-15.9 [facility] Work Phone: Comment on above: PATIENT NOT FASTINGP ERFORMED BY: ORTIZ [facility] Yzjlsn2134 [facility] [id number] Information: 538287,[id number] Immature granulocytes #/vol (Bld) 0.0 {x10E3/uL} Normal 0.0-0.1 [facility] Work Phone: Comment on above: PATIENT NOT FASTINGP ERFORMED BY: ORTIZ RobledoCoWeisman Children's Rehabilitation HospitalPabyir0120 [facility] [id number] Information: [id number] Immature granulocytes/100 WBC (Bld) 0 % Normal 0-2 [facility] Work Phone: Comment on above: PATIENT NOT FASTINGP ERFORMED BY: [facility] Ebfwux2524 [facility] [id number] Information: 516450,[id number] Lymphocytes #/vol (Bld) 1.5 {x10E3/uL} Normal 0.7-3.1 [facility] Work Phone: Comment on above: PATIENT NOT FASTINGP ERFORMED BY: ORTIZ [facility] Jfymng2181 [facility] [id number] Information: [id number] Lymphocytes/100 WBC (Bld) 26 % Normal 14-46 [facility] Work Phone: Comment on above: PATIENT NOT FASTINGP ERFORMED BY: CB [facility] Obcncs9775 Rodriguez RoadDublin [place] [id number] Information: [id number] MCH Entitic mass (RBC) 31.1 pg Normal 26.6-33.0 [facility] Internal Medicine Work Phone: Comment on above: PATIENT NOT FASTINGP ERFORMED BY: [address] [id number] Information: [id number] MCHC mass conc (RBC) 33.6 g/dL Normal 31.5-35.7 [facility] Internal Medicine Work Phone: Comment on above: PATIENT NOT FASTINGP ERFORMED BY: [address] [id number] Information: [id number] MCV Entitic volume (RBC) 93 fL Normal 79-97 [facility] Internal Medicine Work Phone: Comment on above: PATIENT NOT FASTINGP ERFORMED BY: [address] [id number] Information: [id number] Monocytes #/vol (Bld) 0.5 {x10E3/uL} Normal 0.1-0.9 [facility] Work Phone: Comment on above: PATIENT NOT FASTINGP ERFORMED BY: [place] [id number] [facility] [id number] Information: [id number] Monocytes/100 WBC (Bld) 9 % Normal 4-12 [facility] Work Phone: Comment on above: PATIENT NOT FASTINGP ERFORMED BY: [place] [id number] [facility] [id number] Information: [id number] Neutrophils #/vol (Bld) 3.5 {x10E3/uL} Normal 1.4-7.0 [facility] Work Phone: Comment on above: PATIENT NOT FASTINGP ERFORMED BY: [address] [id number] Information: [id number],[id number] Neutrophils/100 WBC (Bld) 63 % Normal 40-74 [facility] Work Phone: Comment on above: PATIENT NOT FASTINGP ERFORMED BY: ORTIZ Chester6370 [facility] [id number] Information: [id number],[id number] Platelets #/vol (Bld) 193 {x10E3/uL} Normal 150-379 [facility] Work Phone: Comment on above: PATIENT NOT FASTINGP ERFORMED BY: ORTIZ Hou Afgqkm[address] [id number] Information: [id number] RBC #/vol (Bld) 4.12 {x10E6/uL} Normal 3.77-5.28 [facility] Internal Medicine Work Phone: Comment on above: PATIENT NOT FASTINGP ERFORMED BY: ORTIZ Crowelin6370 [facility] [id number] Information: [id number] WBC #/vol (Bld) 5.6 {x10E3/uL} Normal 3.4-10.8 [facility] Internal Medicine Work Phone: Comment on above: PATIENT NOT FASTINGP ERFORMED BY: ORTIZ Crowelin6370 [facility] [id number] Information: [id number],G07559 LIPID PANEL (84006)Ordered B y: Ssis Ssrs Developer on 04-06-2014 Cholesterol in HDL mass conc 54 mg/dL Normal [facility] Work Phone: Comment on above: According to ATP-III Guidelines, HDL-C >59 mg/dL is considered anegative risk factor for CHD. PATIENT NOT FASTINGP ERFORMED BY: ORTIZ Crowelin6370 [facility] [id number] Cholesterol in LDL mass conc 63 mg/dL Normal 0-99 [facility] Work Phone: Comment on above: PATIENT NOT FASTINGP ERFORMED BY: CB [facility] Hvthip3735 Rodriguez RoadDublin [place] [id number] Cholesterol in LDL/Cholesterol in HDL mass ratio 1.2 {ratio_units} Normal 0.0-3.2 [facility] Work Phone: Comment on above: PATIENT NOT FASTINGP ERFORMED BY: ORTIZ LabCoaustyn Aemvpm2681 Rodriguez RoadDublin [place] [id number] Cholesterol in VLDL mass conc 41 mg/dL Abnormal 5-40 [facility] Work Phone: Comment on above: PATIENT NOT FASTINGP ERFORMED BY: ORTIZ [facility] Zgtdde6854 Rodriguez RoadDublin [place] [id number] Cholesterol mass conc 158 mg/dL Normal 100-199 Com prehensive Internal Medicine Work Phone: Comment on above: PATIENT NOT FASTINGP ERFORMED BY: ORTIZ MeenaCoaustyn CroweNmbxjz4819 Rodriguez RoadDublin [place] [id number] Triglyceride mass conc 206 mg/dL Abnormal 0-149 [facility] joplinensive [facility] Work Phone: Comment on above: PATIENT NOT FASTINGP ERFORMED BY: ORTIZ [facility] Crgqzy1751 Rodriguez RoadDublin [place] [id number] METABOLIC PANEL, COMPREHENSI VE (78737)Ordered By: Ssis Ssrs Developer on 04-06-2014 Albumin mass conc 4.3 g/dL Normal 3.5-4.8 Compreh ensive Internal Medicine Work Phone: Comment on above: PATIENT NOT FASTINGP ERFORMED BY: ORTIZ [facility] Dqnctn2712 [address] RoadDublin [place] [id number] Albumin/Globulin mass ratio 2.2 {ratio} Normal 1.1-2.5 [facility] Work Phone: Comment on above: PATIENT NOT FASTINGP ERFORMED BY: CB [facility] Wormno0200 Rodriguez RoadDublin [place] [id number] ALP enzyme act/vol 87 [iU]/L Normal 39-117 Compre [facility] Internal Medicine Work Phone: Comment on above: PATIENT NOT FASTINGP ERFORMED BY: ORTIZ [facility] Zysdpi3945 [address] RoadDublin [place] [id number] ALT enzyme act/vol 14 [iU]/L Normal 0-32 Compre [facility] Internal Medicine Work Phone: Comment on above: PATIENT NOT FASTINGP ERFORMED BY: CB [facility] Jrritf6320 [address] RoadDublin [place] [id number] AST enzyme act/vol 18 [iU]/L Normal 0-40 Compre [facility] Internal Medicine Work Phone: Comment on above: PATIENT NOT FASTINGP ERFORMED BY: CB [facility] Xnhfrj4572 Rodriguez Roadblin [place] [id number] Bilirubin mass conc 0.3 mg/dL Normal 0.0-1.2 Compr ensive Internal Medicine Work Phone: Comment on above: PATIENT NOT FASTINGP ERFORMED BY: CB [facility] Wovtxr9131 Rodriguez RoadCritical Access Hospitalin [place] [id number] Calcium mass conc 10.0 mg/dL Normal 8.6-10.2 Compreh [facility] centerive Internal [facility] Work Phone: Comment on above: PATIENT NOT FASTINGP ERFORMED BY: CB [facility] Tfqzcf1966 Rodriguez RoadCritical Access Hospitalin [place] [id number] Chloride molar conc 101 mmol/L Normal 97-108 Compr ensive Internal Medicine Work Phone: Comment on above: PATIENT NOT FASTINGP ERFORMED BY: CB [facility] Xifbuz8229 [address] [facility] [place] [id number] CO2 molar conc 28 mmol/L Normal 18-29 Comprehens [facility] Internal Medicine Work Phone: Comment on above: PATIENT NOT FASTINGP ERFORMED BY: CB [facility] Hoazjc9342 [address] Roadblin [place] [id number] Creatinine mass conc 0.73 mg/dL Normal 0.57-1.00 Comp [facility] Work Phone: Comment on above: PATIENT NOT FASTINGP ERFORMED BY: CB [facility] Hkljds5103 [address] Roadblin [place] [id number] GFR/1.73 sq M predicted among blacks CKD-EPI vol rate/area (S/P/Bld) 94 mL/min/1.73 Normal [facility] Work Phone: Comment on above: PATIENT NOT FASTINGP ERFORMED BY: CB [facility] Zkrxjo4966 Rodriguez RoadDublin [place] [id number] GFR/1.73 sq M predicted among non-blacks CKD-EPI vol rate/area (S/P/Bld) 81 mL/min/1.73 Normal Comprehensiv e Internal Medicine Work Phone: Comment on above: PATIENT NOT FASTINGP ERFORMED BY: CB [facility] Kesona8257 [address] RoadDublin [place] [id number] Globulin mass conc (S) 2.0 g/dL Normal 1.5-4.5 Co mprehensive Internal Medicine Work Phone: Comment on above: PATIENT NOT FASTINGP ERFORMED BY: CB [facility] Pgbwtu6999 Rodriguez RoadDublin [place] [id number] Glucose mass conc 87 mg/dL Normal 65-99 Compreh ensive Internal Medicine Work Phone: Comment on above: PATIENT NOT FASTINGP ERFORMED BY: CB [facility] Rdzqvu5935 [address] RoadDublin [place] [id number] Potassium molar conc 5.0 mmol/L Normal 3.5-5.2 Comp rehensive Internal Medicine Work Phone: Comment on above: PATIENT NOT FASTINGP ERFORMED BY: CB [facility] Tstvfu6189 [address] RoadDublin [place] [id number] Protein mass conc 6.3 g/dL Normal 6.0-8.5 Compreh ensive Internal Medicine Work Phone: Comment on above: PATIENT NOT FASTINGP ERFORMED BY: CB [facility] Ccqoti2881 [address] RoadDublin [place] [id number] Sodium molar conc 142 mmol/L Normal 134-144 Compreh ensive Internal Medicine Work Phone: Comment on above: PATIENT NOT FASTINGP ERFORMED BY: CB [facility] Wcbnyg6050 [address] RoadDublin [place] [id number] Urea nitrogen mass conc 12 mg/dL Normal 8-27 [facility] Work Phone: Comment on above: PATIENT NOT FASTINGP ERFORMED BY: [facility] Ucyzzn0296 Rodriguez RoadDublin [place] [id number] Urea nitrogen/Creatinine mass ratio 16 mg/mg Normal 11- [facility] Work Phone: Comment on above: PATIENT NOT FASTINGP ERFORMED BY: [facility] Uzqoqf6273 [address] RoadDublin [place] [id number] TSH (19638)Ordered By: Samantha tucker Hybrid Tester on 04-06-2014 Thyrotropin Qn 0.748 {uIU/mL} Normal 0.450-4.50 0 [facility] Work Phone: Comment on above: PATIENT NOT FASTINGP ERFORMED BY: [facility] Datrod6421 [address] Teamer.netDublin [place] [id number] Vitamin D Hydroxy (71634)Ord ered By: Ssis Ssrs Developer on 04-06-2014 25-Hydroxyvitamin D2+25-Hydroxyvitamin D3 mass conc 29.5 ng/mL Abnormal 30.0-100.0 [facility] Work Phone: Comment on above: Vitamin D deficiency has been defined by the [place] of[place]icine and an Endocrine Society practice guideline as alevel of serum 25-OH vitamin D less than 20 ng/mL (1,2).The Endocrine Society went on to further define vitamin Dinsufficiency as a level between 21 and 29 ng/mL (2).1. IOM ([place] of Medicine). 2010. Dietary reference intakes for calcium and D. [place]: The National Academies Press.2. Allie MF, Emile PONCE, Natalie POOLE, et al. Evaluation, treatment, and prevention of vitamin D deficiency: an Endocrine Society clinical practice guideline. JCEM. 2010; 96(7):1911-30. PATIENT NOT FASTINGP ERFORMED BY: [facility] Benzlm2022 [address] RoadDublin [place] [id number] CBC WITH MANUAL DIFF ([id number]) Ordered By: Ssis Ssrs Developer on 12-22-2013 Basophils #/vol (Bld) 0.0 {x10E3/uL} Normal 0.0-0.2 [facility] Work Phone: Comment on above: PATIENT NOT FASTINGP ERFORMED BY: ORTIZ [facility] Vuwfan6584 [address] [facility]in [place] [id number] Information: [id number], 838469 Basophils/100 WBC (Bld) 0 % Normal 0-3 [facility] Work Phone: Comment on above: PATIENT NOT FASTINGP ERFORMED BY: [facility] Rjahdf75[address] [facility] [id number] Information: [id number] Eosinophils #/vol (Bld) 0.1 {x10E3/uL} Normal 0.0-0.4 [facility] Work Phone: Comment on above: PATIENT NOT FASTINGP ERFORMED BY: [facility] Dlcfky47[address] [facility] [id number] Information: J10645, 117797 Eosinophils/100 WBC (Bld) 2 % Normal 0-5 [facility] Work Phone: Comment on above: PATIENT NOT FASTINGP ERFORMED BY: [facility] Rgzsqs70[address] [facility] [id number] Information: [id number], 686696 Erythrocyte distribution width Ratio (RBC) 13.7 % Normal 12.3-15.4 [facility] Work Phone: Comment on above: PATIENT NOT FASTINGP ERFORMED BY: [facility] Hjgemm44[address] [facility] [id number] Information: D10575, 129685 Hematocrit Volume Fraction (Bld) 38.4 % Normal 34.0-46.6 [facility] Work Phone: Comment on above: PATIENT NOT FASTINGP ERFORMED BY: [facility] Gdrcxp8553 [address] [facility]in [place] [id number] Information: Y08545, 358522 Hemoglobin mass conc (Bld) 12.8 g/dL Normal 11.1-15.9 [facility] Work Phone: Comment on above: PATIENT NOT FASTINGP ERFORMED BY: [facility] Lullho69[address] [facility] [id number] Information: E53410, 494220 Immature granulocytes #/vol (Bld) 0.0 {x10E3/uL} Normal 0.0-0.1 [facility] Work Phone: Comment on above: PATIENT NOT FASTINGP ERFORMED BY: ORTIZ RobledoCoaustyn ChesterVnzkmd7569 [facility] [id number] Information: Z16882, 869501 Immature granulocytes/100 WBC (Bld) 0 % Normal 0-2 [facility] Work Phone: Comment on above: PATIENT NOT FASTINGP ERFORMED BY: LabCoWeisman Children's Rehabilitation HospitalXndypg8298 [facility] [id number] Information: D47124, 507731 Lymphocytes #/vol (Bld) 1.1 {x10E3/uL} Normal 0.7-3.1 [facility] Work Phone: Comment on above: PATIENT NOT FASTINGP ERFORMED BY: MeenaCoWeisman Children's Rehabilitation HospitalPtjgik9616 [facility] [id number] Information: W91943, 547484 Lymphocytes/100 WBC (Bld) 22 % Normal 14-46 [facility] Work Phone: Comment on above: PATIENT NOT FASTINGP ERFORMED BY: MeenaCo Kttpae3407 [facility] [id number] Information: W47152, 621556 MCH Entitic mass (RBC) 30.6 pg Normal 26.6-33.0 [facility] Internal Medicine Work Phone: Comment on above: PATIENT NOT FASTINGP ERFORMED BY: [facility] Uqgkij4697 [facility] [id number] Information: K87497, 736432 MCHC mass conc (RBC) 33.3 g/dL Normal 31.5-35.7 [facility] Internal Medicine Work Phone: Comment on above: PATIENT NOT FASTINGP ERFORMED BY: [facility] Gqkgeb4310 [facility] [id number] Information: Y27132, 898166 MCV Entitic volume (RBC) 92 fL Normal 79-97 [facility] Work Phone: Comment on above: PATIENT NOT FASTINGP ERFORMED BY: ORTIZ LabCoaustyn ChesterNazseo1067 [facility] [id number] Information: Q76311, 037345 Monocytes #/vol (Bld) 0.4 {x10E3/uL} Normal 0.1-0.9 [facility] Work Phone: Comment on above: PATIENT NOT FASTINGP ERFORMED BY: ORTIZ LabCoWeisman Children's Rehabilitation HospitalNlkcgr2079 [facility] [id number] Information: X82581, 905449 Monocytes/100 WBC (Bld) 8 % Normal 4-12 [facility] Work Phone: Comment on above: PATIENT NOT FASTINGP ERFORMED BY: [facility] Kzocqe0684 [facility] [id number] Information: F23945, 867804 Neutrophils #/vol (Bld) 3.3 {x10E3/uL} Normal 1.4-7.0 [facility] Work Phone: Comment on above: PATIENT NOT FASTINGP ERFORMED BY: ORTIZ RobledoCo Kfsvyn3099 [facility] [id number] Information: S66272, 288307 Neutrophils/100 WBC (Bld) 68 % Normal 40-74 [facility] Work Phone: Comment on above: PATIENT NOT FASTINGP ERFORMED BY: [facility] Teudeq3401 [facility] [id number] Information: Y04100, 017698 Platelets #/vol (Bld) 190 {x10E3/uL} Normal 155-379 [facility] Work Phone: Comment on above: PATIENT NOT FASTINGP ERFORMED BY: [facility] Crmdwr4282 [facility] [id number] Information: E28581, 701236 RBC #/vol (Bld) 4.18 {x10E6/uL} Normal 3.77-5.28 [facility] Internal Medicine Work Phone: Comment on above: PATIENT NOT FASTINGP ERFORMED BY: ORTIZ Chester6370 [facility] [id number] Information: G84820, 633503 WBC #/vol (Bld) 4.8 {x10E3/uL} Normal 3.4-10.8 [facility] Internal Medicine Work Phone: Comment on above: PATIENT NOT FASTINGP ERFORMED BY: ORTIZ Hou Icofut2263 [facility] [id number] Information: R57177, 039938 D-Dimer (69938)Ordered By: Dc keithtem Hybrid Tester on 12-22-2013 D-Dimer (44011) 0.40 {ug_FEU/mL} Normal 0.00-0.49 [facility] Internal Medicine Work Phone: Comment on above: In conjunction with a non-high clinical probability assessment, anormal (<0.50 ug FEU/mL) result excludes deep vein thrombosis (DVT)and pulmonary embolism (PE) with high sensitivity. PATIENT NOT FASTINGP ERFORMED BY: ORTIZ Chester6370 [facility] [id number] PT (Prothrobim Time) (76617) Ordered By: Ssis Ssrs Developer on 12-22-2013 INR Coag RelTime (PPP) 1.0 {INR} Normal 0.8-1.2 [facility] Internal Medicine Work Phone: Comment on above: Reference interval i s for non-anticoagulated patients. . Suggested INR therapeutic range for Vitamin K antagonist therapy: Standard Dose (moderate intensity therapeutic range): 2.0 - 3.0 Higher intensity therapeutic range 2.5 - 3.5 PATIENT NOT FASTINGP ERFORMED BY: ORTIZ Hou Kjwqdc0476 [facility] [id number] Prothrombin time (PT) Coag time (PPP) 10.6 {sec} Normal 9.1-12.0 [facility] Internal Medicine Work Phone: Comment on above: PATIENT NOT FASTINGP ERFORMED BY: [employer] Web DevelopmentPemiscot Memorial Health SystemsOgywhj[address] [facility] Hospitalblin [place] [id number] PTT (Activated Partial Throm boplastin Time) (17016)Ordered By: Ssis Ssrs Developer on 12-22-2013 aPTT Coag time (PPP) 26 {sec} Normal 24-33 [facility] Internal Medicine Work Phone: Comment on above: This test has not be en validated for monitoring unfractionated heparintherapy. aPTT-based therapeutic ranges for unfractionated heparintherapy have not been established. For general guidelines onHeparin monitoring, refer to the [employer] DevelopmentOz[facility] Directory of Services. PATIENT NOT FASTINGP ERFORMED BY: [employer] Medical CenterRlivpu4491 [address] Teamer.netAtrium Health [id number] MICROALBUMINOrdered By: Syst em Hybrid Tester on 12-05-2013 Albumin DL <= 20 mg/L mass conc (U) 23.2 ug/mL Abnormal 0.0-17.0 [facility] Work Phone: Comment on above: PATIENT NOT FASTINGP ERFORMED BY: [employer] Web DevelopmentPemiscot Memorial Health SystemsOhobyw4548 [address] Teamer.netCritical Access Hospitalin [place] [id number] Albumin/Creatinine mass ratio (U) 14.1 {mg/g_creat} Normal 0.0-30.0 [facility] Work Phone: Comment on above: PATIENT NOT FASTINGP ERFORMED BY: [employer] Web DevelopmentCorewell Health Zeeland Hospital6370 [facility] [id number] Creatinine mass conc (U) 164.8 mg/dL Normal 15.0-278.0 [facility] Work Phone: Comment on above: PATIENT NOT FASTINGP ERFORMED BY: [employer] Web DevelopmentCorewell Health Zeeland Hospital6370 [facility] [place] [id number] URINALYSIS, W/ MICRO (69892) Ordered By: Ssis Ssrs Developer on 12-05-2013 Appearance Nom (U) Cloudy Abnormal [facility]pre [facility] Internal [facility] Work Phone: Comment on above: PATIENT NOT FASTINGP ERFORMED BY: [employer] Web DevelopmentCorewell Health [facility] Hospital6370 [facility] [id number] Information: K58015 Bilirubin Ql (U) Negative Normal Comprehe nsive Internal Medicine Work Phone: Comment on above: PATIENT NOT FASTINGP ERFORMED BY: ORTIZ [facility] Bywvxt7782 Rodriguez RoadWellsville [place] [id number] Information: K84337 Color Nom (U) Yellow Normal Comprehensi ve Internal Medicine Work Phone: Comment on above: PATIENT NOT FASTINGP ERFORMED BY: ORTIZ [facility] Bqorhf6890 Rodriguez RoadAtrium Health [id number] Information: Z67981 Glucose Ql (U) Negative Normal Comprehens trupti Internal Medicine Work Phone: Comment on above: PATIENT NOT FASTINGP ERFORMED BY: ORTIZ [facility] Uqztrr6483 Rodriguez RoadAtrium Health [id number] Information: T54278 Hemoglobin Ql (U) Negative Normal Compreh ensive Internal Medicine Work Phone: Comment on above: PATIENT NOT FASTINGP ERFORMED BY: ORTIZ [facility] Tgqcns[address] [facility] [id number] Information: H55346 Ketones Ql (U) Negative Normal Comprehens trupti Internal Medicine Work Phone: Comment on above: PATIENT NOT FASTINGP ERFORMED BY: ORTIZ [facility] Bezgmg0[address] [facility] [id number] Information: V09950 Leukocyte esterase Test strip Ql (U) Negative Normal [facility] Work Phone: Comment on above: PATIENT NOT FASTINGP ERFORMED BY: ORTIZ [facility] Ankpct[address] [facility] [id number] Information: [id number] Microscopic observation LM Nom (Urine sed) See below: Normal [facility] Work Phone: Comment on above: PATIENT NOT FASTINGP ERFORMED BY: ORTIZ [facility] Vykrot[address] [facility] [id number] Information: Q87628 Microscopic observation LM Nom (Urine sed) MICRON Normal [facility] Work Phone: Comment on above: Microscopic follows if indicated. PATIENT NOT FASTINGP ERFORMED BY: ORTIZ [facility] Rgaoah7597 [address] Roadblin [place] [id number] Information: N86716 Nitrite Ql (U) Negative Normal Comprehens trupti Internal Medicine Work Phone: Comment on above: PATIENT NOT FASTINGP ERFORMED BY: ORTIZ [facility] Dlzkym2475 [address] Roadblin [place] [id number] Information: H75542 pH (U) 5.0 [pH] Normal 5.0-7.5 [facility] Work Phone: Comment on above: PATIENT NOT FASTINGP ERFORMED BY: ORTIZ [facility] Qhdgct3518 [address] Roadblin [place] [id number] Information: V50644 Protein Ql (U) Negative Normal Comprehens trupti Internal Medicine Work Phone: Comment on above: PATIENT NOT FASTINGP ERFORMED BY: ORTIZ Hou Ozinhg2336 [address] [facility] [place] [id number] Information: [id number] Specific gravity Relative Density (U) 1.017 1 Normal 1.005-1.03 0 [facility] Work Phone: Comment on above: PATIENT NOT FASTINGP ERFORMED BY: ORTIZ Hou Ssehxl2297 [facility] [place] [id number] Information: [id number] Urobilinogen Test strip mass conc (U) 0.2 mg/dL Normal 0.0-1.9 Comprehensiv e [facility] Work Phone: Comment on above: PATIENT NOT FASTINGP ERFORMED BY: [facility] Jkzjeo8916 [facility] [place] [id number] Information: [id number] CBC WITH MANUAL DIFF (79839) Ordered By: Ssis Ssrs Developer on 12-01-2013 Basophils #/vol (Bld) 0.0 {x10E3/uL} Normal 0.0-0.2 [facility] Work Phone: Comment on above: PATIENT WAS FASTINGP ERFORMED BY: ORTIZ LabCo Lztrbz2968 [facility] [id number] Information: [id number] Basophils/100 WBC (Bld) 0 % Normal 0-3 [facility] Work Phone: Comment on above: PATIENT WAS FASTINGP ERFORMED BY: [place] [id number] [facility] [id number] Information: [id number] Eosinophils #/vol (Bld) 0.1 {x10E3/uL} Normal 0.0-0.4 [facility] Work Phone: Comment on above: PATIENT WAS FASTINGP ERFORMED BY: [place] [id number] [facility] [id number] Information: [id number] Eosinophils/100 WBC (Bld) 1 % Normal 0-5 [facility] Work Phone: Comment on above: PATIENT WAS FASTINGP ERFORMED BY: [address] [id number] Information: [id number] Erythrocyte distribution width Ratio (RBC) 13.5 % Normal 12.3-15.4 [facility] Work Phone: Comment on above: PATIENT WAS FASTINGP ERFORMED BY: [place] [id number] [facility] [id number] Information: [id number] Hematocrit Volume Fraction (Bld) 40.8 % Normal 34.0-46.6 [facility] Work Phone: Comment on above: PATIENT WAS FASTINGP ERFORMED BY: [place] [id number] [facility] [id number] Information: [id number] Hemoglobin mass conc (Bld) 13.2 g/dL Normal 11.1-15.9 [facility] Work Phone: Comment on above: PATIENT WAS FASTINGP ERFORMED BY: [place] [id number] [facility] [id number] Information: [id number] Immature granulocytes #/vol (Bld) 0.0 {x10E3/uL} Normal 0.0-0.1 [facility] Work Phone: Comment on above: PATIENT WAS FASTINGP ERFORMED BY: [place] [id number] [facility] [id number] Information: [id number] Immature granulocytes/100 WBC (Bld) 0 % Normal 0-2 [facility] Work Phone: Comment on above: PATIENT WAS FASTINGP ERFORMED BY: [address] [id number] Information: [id number] Lymphocytes #/vol (Bld) 1.4 {x10E3/uL} Normal 0.7-3.1 [facility] Work Phone: Comment on above: PATIENT WAS FASTINGP ERFORMED BY: [address] [id number] Information: [id number] Lymphocytes/100 WBC (Bld) 18 % Normal 14-46 [facility] Work Phone: Comment on above: PATIENT WAS FASTINGP ERFORMED BY: [address] [id number] Information: [id number] MCH Entitic mass (RBC) 30.1 pg Normal 26.6-33.0 [facility] Internal Medicine Work Phone: Comment on above: PATIENT WAS FASTINGP ERFORMED BY: [address] [id number] Information: [id number] MCHC mass conc (RBC) 32.4 g/dL Normal 31.5-35.7 [facility] Internal Medicine Work Phone: Comment on above: PATIENT WAS FASTINGP ERFORMED BY: [address] [id number] Information: [id number] MCV Entitic volume (RBC) 93 fL Normal 79-97 [facility] Work Phone: Comment on above: PATIENT WAS FASTINGP ERFORMED BY: [place] [id number] [facility] [id number] Information: [id number] Monocytes #/vol (Bld) 0.6 {x10E3/uL} Normal 0.1-0.9 [facility] Work Phone: Comment on above: PATIENT WAS FASTINGP ERFORMED BY: [address] [id number] Information: [id number] Monocytes/100 WBC (Bld) 7 % Normal 4-12 [facility] Work Phone: Comment on above: PATIENT WAS FASTINGP ERFORMED BY: [address] [id number] Information: [id number] Neutrophils #/vol (Bld) 5.9 {x10E3/uL} Normal 1.4-7.0 [facility] Work Phone: Comment on above: PATIENT WAS FASTINGP ERFORMED BY: [address] [id number] Information: [id number] Neutrophils/100 WBC (Bld) 74 % Normal 40-74 [facility] Work Phone: Comment on above: PATIENT WAS FASTINGP ERFORMED BY: [address] [id number] Information: [id number] Platelets #/vol (Bld) 225 {x10E3/uL} Normal 155-379 [facility] Work Phone: Comment on above: PATIENT WAS FASTINGP ERFORMED BY: [address] [id number] Information: [id number] RBC #/vol (Bld) 4.38 {x10E6/uL} Normal 3.77-5.28 Comp rehensive Internal Medicine Work Phone: Comment on above: PATIENT WAS FASTINGP ERFORMED BY: ORTIZ Nilda Chester6370 [facility] [id number] Information: [id number] WBC #/vol (Bld) 8.0 {x10E3/uL} Normal 3.4-10.8 [facility] Internal Medicine Work Phone: Comment on above: PATIENT WAS FASTINGP ERFORMED BY: ORTIZ Nilda Chester6370 [facility] [id number] Information: [id number],[id number] LIPID PANEL (80107)Ordered B y: Ssis Ssrs Developer on 12-01-2013 Cholesterol in HDL mass conc 47 mg/dL Normal [facility] Work Phone: Comment on above: According to ATP-III Guidelines, HDL-C >59 mg/dL is considered anegative risk factor for CHD. PATIENT WAS FASTINGP ERFORMED BY: ORTIZ Nilda Chester6370 [facility] [id number] Cholesterol in LDL mass conc 50 mg/dL Normal 0-99 [facility] Work Phone: Comment on above: PATIENT WAS FASTINGP ERFORMED BY: ORTIZ Nilda Chester6[address] [facility] [id number] Cholesterol in LDL/Cholesterol in HDL mass ratio 1.1 {ratio_units} Normal 0.0-3.2 [facility] Work Phone: Comment on above: PATIENT WAS FASTINGP ERFORMED BY: ORTIZ Nilda Crowelin6370 [facility] [id number] Cholesterol in VLDL mass conc 35 mg/dL Normal 5-40 [facility] Work Phone: Comment on above: PATIENT WAS FASTINGP ERFORMED BY: ORTIZ Nilda Croewlin6370 [facility] [id number] Cholesterol mass conc 132 mg/dL Normal 100-199 [facility] Internal Medicine Work Phone: Comment on above: PATIENT WAS FASTINGP ERFORMED BY: ORTIZ [facility]6370 [facility] [id number] Triglyceride mass conc 177 mg/dL Abnormal 0-149 Co mprehensive Internal Medicine Work Phone: Comment on above: PATIENT WAS FASTINGP ERFORMED BY: [facility]6370 [facility] [id number] Lab Report: Ordered by Dr. Saritha delgado 12-01-2013 Alanine aminotransferase (ALT) 10 U/L Invalid Interpretation Code [facility] Work Phone: Alkaline phosphatase (ALP) 76 U/L Invalid Interpretation Code [facility] Work Phone: Aspartate aminotransferase (AST) 13 U/L Invalid Interpretation Code [facility] Work Phone: METABOLIC PANEL, COMPREHENSI VE (20568)Ordered By: Ssis Ssrs Developer on 12-01-2013 Albumin mass conc 4.5 g/dL Normal 3.5-4.8 Compreh [facility] Internal Medicine Work Phone: Comment on above: PATIENT WAS FASTINGP ERFORMED BY: [facility]6370 [facility] [id number] Albumin/Globulin mass ratio 2.1 {ratio} Normal 1.1-2.5 [facility] Internal Medicine Work Phone: Comment on above: PATIENT WAS FASTINGP ERFORMED BY: [facility]6370 [facility] [id number] ALP enzyme act/vol 76 [iU]/L Normal 39-117 [facility] Internal Medicine Work Phone: Comment on above: PATIENT WAS FASTINGP ERFORMED BY: [facility]6370 [facility] [id number] ALT enzyme act/vol 10 [iU]/L Normal 0-32 [facility] Internal Medicine Work Phone: Comment on above: PATIENT WAS FASTINGP ERFORMED BY: [facility]6370 [facility] [id number] AST enzyme act/vol 13 [iU]/L Normal 0-40 [facility] Internal Medicine Work Phone: Comment on above: PATIENT WAS FASTINGP ERFORMED BY: ORTIZ [facility] Hrjwqj2110 Rodriguez RoadDublin [place] [id number] Bilirubin mass conc 0.3 mg/dL Normal 0.0-1.2 Compr ensive Internal Medicine Work Phone: Comment on above: PATIENT WAS FASTINGP ERFORMED BY: ORTIZ [facility] Xfkugc2792 Rodriguez RoadDublin [place] [id number] Calcium mass conc 9.9 mg/dL Normal 8.6-10.2 Compreh ensive Internal Medicine Work Phone: Comment on above: PATIENT WAS FASTINGP ERFORMED BY: ORTIZ [facility] Hgwrqa7054 Rodriguez Roadblin [place] [id number] Chloride molar conc 101 mmol/L Normal 97-108 Compr ensive Internal Medicine Work Phone: Comment on above: PATIENT WAS FASTINGP ERFORMED BY: ORTIZ [facility] Rseudm1761 [facility]Critical [facility] Hospitalin [place] [id number] CO2 molar conc 27 mmol/L Normal 19-28 Comprehens trupti Internal Medicine Work Phone: Comment on above: PATIENT WAS FASTINGP ERFORMED BY: ORTIZ [facility] Zrcewn9714 [facility] RoadCritical Access Hospitalin [place] [id number] Creatinine mass conc 0.97 mg/dL Normal 0.57-1.00 [facility] Work Phone: Comment on above: PATIENT WAS FASTINGP ERFORMED BY: ORTIZ [facility] Phdmlk2933 [facility] [place] [id number] GFR/1.73 sq M predicted among blacks CKD-EPI vol rate/area (S/P/Bld) 67 mL/min/1.73 Normal [facility] Work Phone: Comment on above: PATIENT WAS FASTINGP ERFORMED BY: CB [facility] Zczxnp1234 [address]bl[address] [place] [id number] GFR/1.73 sq M predicted among non-blacks CKD-EPI vol rate/area (S/P/Bld) 58 mL/min/1.73 Abnormal Comprehensiv e Internal Medicine Work Phone: Comment on above: PATIENT WAS FASTINGP ERFORMED BY: ORTIZ [facility] Jkwmjp6232 Rodriguez RoadDublin [place] [id number] Globulin mass conc (S) 2.1 g/dL Normal 1.5-4.5 [facility] Work Phone: Comment on above: PATIENT WAS FASTINGP ERFORMED BY: ORTIZ [facility] Ledblu8376 Rodriguez RoadDublin [place] [id number] Glucose mass conc 99 mg/dL Normal 65-99 Compreh ensive Internal Medicine Work Phone: Comment on above: PATIENT WAS FASTINGP ERFORMED BY: ORTIZ [facility] Tgagmi4395 Rodriguez RoadDublin [place] [id number] Potassium molar conc 4.9 mmol/L Normal 3.5-5.2 [facility] Work Phone: Comment on above: PATIENT WAS FASTINGP ERFORMED BY: ORTIZ [facility] Gemxnh4189 Rodriguez RoadDublin [place] [id number] Protein mass conc 6.6 g/dL Normal 6.0-8.5 Compreh ensive Internal Medicine Work Phone: Comment on above: PATIENT WAS FASTINGP ERFORMED BY: ORTIZ [facility] Jplgas7474 Rodriguez RoadDublin [place] [id number] Sodium molar conc 141 mmol/L Normal 134-144 Compreh ensive Internal Medicine Work Phone: Comment on above: PATIENT WAS FASTINGP ERFORMED BY: ORTIZ [facility] Pycext0699 Rodriguez RoadDublin [place] [id number] Urea nitrogen mass conc 21 mg/dL Normal 8-27 [facility] Work Phone: Comment on above: PATIENT WAS FASTINGP ERFORMED BY: ORTIZ [facility] Dirpol5154 Rodriguez RoadDublin [place] [id number] Urea nitrogen/Creatinine mass ratio 22 mg/mg Normal 11-26 [facility] Work Phone: Comment on above: PATIENT WAS FASTINGP ERFORMED BY: ORTIZ [facility] Jxdpxw0962 Rodriguez RoadDublin [place] [id number] TSH ([id number])Ordered By: Syste m Hybrid Tester on 12-01-2013 Thyrotropin Qn 1.040 {uIU/mL} Normal 0.450-4.50 0 [facility] Work Phone: Comment on above: PATIENT WAS FASTINGP ERFORMED BY: ORTIZ [facility] Jhixtv3660 [facility] [id number] URINE IBRAHIMA CULTURE (TY COL COUNT) (15105)Ordered By: Ssis Ssrs Developer on 12-01-2013 Bacteria identified Cx Nom (U) Escherichia coli Normal [facility] Work Phone: Comment on above: Greater than 100,000 colony forming units per mL PATIENT NOT FASTINGP ERFORMED BY: [facility] Kuxvoj1921 [address] Flash ValetOnslow Memorial Hospital [id number] Information: SRC:UR [id number] Bacteria identified Cx Nom (U) Final report Normal [facility] Work Phone: Comment on above: PATIENT NOT FASTINGP ERFORMED BY: LabAccelerarp Hzuogm8671 [facility] [id number] Information: SRC:UR [id number] Other Antibiotic [facility] prehensive Internal Medicine Work Phone: Comment on above: S = Susceptibl e; I = Intermediate; R = Resistant P = Positive; N = Negative MICS are expressed in micrograms per mL Antibiotic RSLT#1 RSLT#2 RSLT#3 RSLT#4Amoxicillin/Clavulanic Acid SAmpicillin SCefepime SCeftriaxone SCefuroxime SCephalothin SCiprofloxacin SErtapenem SGentamicin SImipenem SLevofloxacin SNitrofurantoin SPiperacillin STetracycline STobramycin STrimethoprim/Sulfa S PATIENT NOT FASTINGP ERFORMED BY: LabAccelera Vraxad2888 [facility] [id number] Information: SRC:UR [id number] Urinalysis, Office (56504)Or dered By: Jacinta Patel on 12-01-2013 Bilirubin Ql (U) Negative Normal Comprehe nsive Internal Medicine Work Phone: Glucose Test strip mass conc (U) Negative Normal [facility] Work Phone: Hemoglobin Ql (U) ++ Abnormal Compreh ensive Internal Medicine Work Phone: Comment on above: not lyzed, large Ketones Ql (U) Negative Normal Comprehens trupti Internal Medicine Work Phone: Leukocyte esterase Test strip Ql (U) Large Normal [facility] Work Phone: Nitrite Ql (U) Positive Normal Comprehens rtupti Internal Medicine Work Phone: pH (U) 6.0 [pH] Normal [facility] Work Phone: Protein Ql (U) 300 mg/dL Normal Comprehens trupti Internal Medicine Work Phone: Specific gravity Relative Density (U) 1.030 1 Abnormal Comprehensi ve Internal Medicine Work Phone: Urobilinogen mass/time (24H U) Normal Normal [facility] Work Phone: Vitamin D Hydroxy (31609)Ord ered By: Ssis Ssrs Developer on 12-01-2013 25-Hydroxyvitamin D2+25-Hydroxyvitamin D3 mass conc 38.9 ng/mL Normal 30.0-100.0 [facility] Work Phone: Comment on above: Vitamin D deficiency has been defined by the [place] of[place]icine and an Endocrine Society practice guideline as alevel of serum 25-OH vitamin D less than 20 ng/mL (1,2).The Endocrine Society went on to further define vitamin Dinsufficiency as a level between 21 and 29 ng/mL (2).1. IOM ([place] of Medicine). 2010. Dietary reference intakes for calcium and D. [place]: The National Academies Press.2. Allie MF, Emile NC, Natalie POOLE, et al. Evaluation, treatment, and prevention of vitamin D deficiency: an Endocrine Society clinical practice guideline. JCEM. 2010; 96(7):1911-30. PATIENT WAS FASTINGP ERFORMED BY: [facility] Ejemeq0296 [facility] [id number] Lab Report: PTon 04-19-2013 INR in blood by coagulation 1.0 {INR} Normal [facility] Work Phone: prothrombin time, actual/normal, ratio 12.8 SECONDS Normal 11.9-14.4 [facility] Work Phone: Lab Report: PTTon 04-19-2013 aPTT 29.8 s Normal 24.1-36.2 [facility] Work Phone: Replaced Document: Escobar Parra CG Observationson 04-19-2013 Pulse (Heart Rate) 421 ms Invalid Interpretation Code [facility] Work Phone: URINE IBRAHIMA CULTURE-TY COL C OUNT (74536)Ordered By: Ssis Ssrs Developer on 04-18-2013 Bacteria identified Cx Nom (U) Final report Normal [facility] Work Phone: Comment on above: PATIENT NOT FASTINGP ERFORMED BY: OmnisensOnslow Memorial Hospital [id number] Information: SRC:UR [id number] Bacteria identified Cx Nom (U) NG36 Normal [facility] Work Phone: Comment on above: No growth in 36 - 48 hours. PATIENT NOT FASTINGP ERFORMED BY: [employer] [place] [id number] Information: SRC:UR [id number] Urinalysis, Office (72758)Or dered By: Jacinta Patel on 04-15-2013 Bilirubin Ql (U) Negative Normal Comprehe nsive Internal Medicine Work Phone: Glucose Test strip mass conc (U) Negative Normal [facility] Work Phone: Hemoglobin Ql (U) Hemolyzed Trace Normal Co mprehensive [facility] Work Phone: Ketones Ql (U) Small Normal Comprehens trupti Internal Medicine Work Phone: Leukocyte esterase Test strip Ql (U) Moderate Normal [facility] Work Phone: Nitrite Ql (U) Negative Normal Comprehens trupti Internal Medicine Work Phone: pH (U) 7.0 [pH] Normal [facility] Work Phone: Protein Ql (U) Trace Normal Comprehens trupti Internal Medicine Work Phone: Specific gravity Relative Density (U) 1.005 1 Normal Comprehensi ve Internal Medicine Work Phone: Urobilinogen mass/time (24H U) Normal Normal [facility] Work Phone: Lab Report: Erika 02-05-20 13 Albumin 4.0 g/dL Normal 3.4-5.0 [facility] Work Phone: Bilirubin (direct) 0.12 mg/dL Normal 0.00-0.30 [facility] Work Phone: Bilirubin (total) 0.40 mg/dL Normal 0.00-1.00 [facility] Work Phone: URINE IBRAHIMA CULTURE (TY COL COUNT) (54542)Ordered By: Ssis Ssrs Developer on 09-30-2012 Bacteria identified Cx Nom (U) Escherichia coli Normal [facility] Work Phone: Comment on above: Greater than 100,000 colony forming units per mL PATIENT NOT FASTINGP ERFORMED BY: [employer] LabAccelerarp Ybybxq9370 Rodriguez RoadImagine CommunicationsOnslow Memorial Hospital [id number] Information: SRC:UR [id number] Bacteria identified Cx Nom (U) Final report Normal [facility] Work Phone: Comment on above: PATIENT NOT FASTINGP ERFORMED BY: [employer] LabAccelerarp Momufb3109 Rodriguez RoadDuin [place] [id number] Information: SRC:UR [id number] Other Antibiotic [facility] prehensive Internal Medicine Work Phone: Comment on above: S = Susceptibl e; I = Intermediate; R = Resistant P = Positive; N = Negative MICS are expressed in micrograms per mL Antibiotic RSLT#1 RSLT#2 RSLT#3 RSLT#4Amoxicillin/Clavulanic Acid SAmpicillin SCefazolin SCefepime SCeftriaxone SCefuroxime SCephalothin SCiprofloxacin SESBL NErtapenem SGentamicin SImipenem SLevofloxacin SNitrofurantoin SPiperacillin STetracycline STobramycin STrimethoprim/Sulfa S PATIENT NOT FASTINGP ERFORMED BY: ORTIZ [facility] Gqanlm9885 [facility] [id number] Information: SRC:UR [id number] Urinalysis, Office (47540)Or dered By: Alyson Dixon on 09-30-2012 Bilirubin Ql (U) Negative Normal Comprehe nsive Internal Medicine Work Phone: Glucose Test strip mass conc (U) Negative Normal [facility] Work Phone: Hemoglobin Ql (U) Hemolyzed Large Normal Co mprehensive [facility] Medicine Work Phone: Ketones Ql (U) Small Normal Comprehens trupti Internal Medicine Work Phone: Comment on above: 15mg Leukocyte esterase Test strip Ql (U) Large Normal [facility] Work Phone: Nitrite Ql (U) Positive Normal Comprehens trupti Internal Medicine Work Phone: pH (U) 6.0 [pH] Normal [facility] Work Phone: Protein Ql (U) 300 mg/dL Normal Comprehens trupti Internal Medicine Work Phone: Specific gravity Relative Density (U) 1.025 1 Normal Comprehensi ve Internal Medicine Work Phone: Urobilinogen mass/time (24H U) Normal Normal [facility] Work Phone: Lab Reporton 05-21-2012 Albumin/Globulin Ratio 1.1 {ratio} Invalid Interpretation Code [facility] Work Phone: Protein 6.7 g/dL Invalid Interpretation Code [facility] Work Phone: Alkaline Phosphatase (44730) Ordered By: Ssis Ssrs Developer on 02-25-2012 ALP enzyme act/vol 67 [iU]/L Normal 25-165 Compre hensive Internal Medicine Work Phone: Comment on above: PATIENT NOT FASTINGP ERFORMED BY: ORTIZ [facility] Gfsamn3170 [facility] [id number] CALCIFIDIOL (94386) VIT D 25 Ordered By: Ssis Ssrs Developer on 02-25-2012 25-Hydroxyvitamin D2+25-Hydroxyvitamin D3 mass conc 45.8 ng/mL Normal 30.0-100.0 [facility] Work Phone: Comment on above: Vitamin D deficiency has been defined by the [place] of[place]icine and an Endocrine Society practice guideline as alevel of serum 25-OH vitamin D less than 20 ng/mL (1,2).The Endocrine Society went on to further define vitamin Dinsufficiency as a level between 21 and 29 ng/mL (2).1. IOM ([place] of [employer]). 2010. Dietary reference intakes for calcium and D. [place]: The National Academies Press.2. Allie MF, Emile [place], Natalie POOLE, et al. Evaluation, treatment, and prevention of vitamin D deficiency: an Endocrine Society clinical practice guideline. JCEM. 2010; 96(7):1911-30. 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 [id number] Hemoglobin mass conc (Bld) 13.7 g/dL Normal 11.5-15.0 [facility] Internal Medicine Work Phone: Comment on above: PATIENT NOT FASTINGP ERFORMED BY: ORTIZ LabCoaustyn CroweAwouny[address] [facility] [id number] MCH Entitic mass (RBC) 29.5 pg Normal 27.0-34.0 Co [facility] Internal Medicine Work Phone: Comment on above: PATIENT NOT FASTINGP ERFORMED BY: ORTIZ LabCoaustyn CroweAtrjvy[address] [facility] [id number] MCHC mass conc (RBC) 33.9 g/dL Normal 32.0-36.0 [facility] Internal Medicine Work Phone: Comment on above: PATIENT NOT FASTINGP ERFORMED BY: ORTIZ Crowelin6370 [facility] [id number] MCV Entitic volume (RBC) 87 fL Normal 80-98 [facility] Internal Medicine Work Phone: Comment on above: PATIENT NOT FASTINGP ERFORMED BY: ORTIZ Crowelin[address] [facility] [id number] Platelets #/vol (Bld) 280 {x10E3/uL} Normal 140-415 [facility] Internal Medicine Work Phone: Comment on above: PATIENT NOT FASTINGP ERFORMED BY: ORTIZ LabKellie Mqmojo[address] [facility] [id number] RBC #/vol (Bld) 4.64 {x10E6/uL} Normal 3.80-5.10 [facility] Internal Medicine Work Phone: Comment on above: PATIENT NOT FASTINGP ERFORMED BY: ORTIZ LabCo Tdtycg[address] [facility] [id number] WBC #/vol (Bld) 6.2 {x10E3/uL} Normal 4.0-10.5 [facility] Internal Medicine Work Phone: Comment on above: PATIENT NOT FASTINGP ERFORMED BY: CB [facility] Rfbndm4220 [facility] [place] [id number] METABOLIC PANEL, COMPREHENSI VE (67345)Ordered By: Ssis Ssrs Developer on 10-14-2010 Albumin mass conc 4.4 g/dL Normal 3.5-4.8 Compreh [facility] Internal Medicine Work Phone: Comment on above: PATIENT NOT FASTINGP ERFORMED BY: CB [facility] Kcsgcz69[address] [facility] [id number] Information: 538491,[id number] Albumin/Globulin mass ratio 1.8 {ratio} Normal 1.1-2.5 [facility] Internal Medicine Work Phone: Comment on above: PATIENT NOT FASTINGP ERFORMED BY: CB [facility] Lgxixx9[address] [facility] [id number] Information: [id number] ALP enzyme act/vol 84 [iU]/L Normal 25-165 [facility] Internal Medicine Work Phone: Comment on above: PATIENT NOT FASTINGP ERFORMED BY: CB [facility] Iaqdbu[address] [facility] [id number] Information: [id number] ALT enzyme act/vol 13 [iU]/L Normal 0-40 [facility] Internal Medicine Work Phone: Comment on above: PATIENT NOT FASTINGP ERFORMED BY: CB [facility] Ddchaw[address] [facility] [id number] Information: [id number] AST enzyme act/vol 13 [iU]/L Normal 0-40 [facility] Internal Medicine Work Phone: Comment on above: PATIENT NOT FASTINGP ERFORMED BY: CB [facility] Nyshfl[address] [facility] [id number] Information: [id number],[id number] Bilirubin mass conc 0.2 mg/dL Normal 0.0-1.2 [facility] Internal Medicine Work Phone: Comment on above: PATIENT NOT FASTINGP ERFORMED BY: CB [facility] Ybimzr4346 [facility] [place] [id number] Information: 490891,[id number] Calcium mass conc 10.4 mg/dL Abnormal 8.6-10.2 Compreh ensive Internal Medicine Work Phone: Comment on above: PATIENT NOT FASTINGP ERFORMED BY: ORTIZ [facility] Jrzwan5018 [facility] [id number] Information: 976390,[id number] Chloride molar conc 101 mmol/L Normal 97-108 Compr ehensive Internal Medicine Work Phone: Comment on above: PATIENT NOT FASTINGP ERFORMED BY: [facility] Slnsvu4128 [facility] [id number] Information: [id number] CO2 molar conc 28 mmol/L Normal 20-32 Comprehens trupti Internal Medicine Work Phone: Comment on above: PATIENT NOT FASTINGP ERFORMED BY: [facility] Tnbdfi3966 [facility] [id number] Information: [id number],[id number] Creatinine mass conc 0.70 mg/dL Normal 0.57-1.00 Comp rehensive Internal Medicine Work Phone: Comment on above: PATIENT NOT FASTINGP ERFORMED BY: ORTIZ [facility] Wdmsqg3942 [facility] [id number] Information: [id number] GFR/1.73 sq M predicted among blacks MDRD vol rate/area (S/P/Bld) mL/min/{1.73_m2} Normal [facility] Work Phone: Comment on above: Note: Persistent red uction for 3 months or more in an eGFR<60 mL/min/1.73 m2 defines CKD. Patients with eGFR values>/=60 mL/min/1.73 m2 may also have CKD if evidence of persistentproteinuria is present. Additional information may be found [email or web address]. PATIENT NOT FASTINGP ERFORMED BY: [facility] Fjnqxf5828 [facility] [id number] Information: 188674,[id number] GFR/1.73 sq M.predicted MDRD (S/P/Bld) [Vol rate/Area] mL/min/{1.73_m2} Normal [facility] Work Phone: Comment on above: PATIENT NOT FASTINGP ERFORMED BY: CB [facility] Nbibfi4406 [facility] [place] [id number] Information: 377349,[id number] GFR/1.73 sq M.predicted MDRD vol rate/area mL/min/{1.73_m2} Normal [facility] Work Phone: Comment on above: PATIENT NOT FASTINGP ERFORMED BY: CB [facility] Kpixup[address] [facility] [id number] Information: [id number] Globulin mass conc (S) 2.5 g/dL Normal 1.5-4.5 [facility] Work Phone: Comment on above: PATIENT NOT FASTINGP ERFORMED BY: CB [facility] Inchwg[address] [facility] [id number] Information: 558528,[id number] Glucose mass conc 88 mg/dL Normal 65-99 Compreh ensive Internal Medicine Work Phone: Comment on above: PATIENT NOT FASTINGP ERFORMED BY: CB [facility] Aimjpc23[address] [facility] [id number] Information: 096026,[id number] Potassium molar conc 4.6 mmol/L Normal 3.5-5.2 [facility] Work Phone: Comment on above: PATIENT NOT FASTINGP ERFORMED BY: CB [facility] Zkhwpi[address] [facility] [id number] Information: [id number],[id number] Protein mass conc 6.9 g/dL Normal 6.0-8.5 Compreh ensive Internal Medicine Work Phone: Comment on above: PATIENT NOT FASTINGP ERFORMED BY: CB [facility] Kiqpww[address] [facility] [id number] Information: 086816,[id number] Sodium molar conc 140 mmol/L Normal 135-145 Compreh ensive Internal Medicine Work Phone: Comment on above: PATIENT NOT FASTINGP ERFORMED BY: ORTIZ Nilda Zwuqar1931 [address] [place] [id number] Information: [id number] Urea nitrogen mass conc 9 mg/dL Normal 8- [facility] Medicine Work Phone: Comment on above: PATIENT NOT FASTINGP ERFORMED BY: ORTIZ LabCoaustyn Apkuij0579 [facility] [place] [id number] Information: [id number],[id number] Urea nitrogen/Creatinine mass ratio 13 mg/mg Normal 11- [facility] Medicine Work Phone: Comment on above: PATIENT NOT FASTINGP ERFORMED BY: ORTIZ Ameyaaustyn CroweNcaqqq8557 [facility] [place] [id number] Information: [id number],[id number] TSH (52052)Ordered By: Syste m Hybrid Tester on 10-14-2010 Thyrotropin Qn 1.320 {uIU/mL} Normal 0.450-4.50 0 [facility] Medicine Work Phone: Comment on above: PATIENT NOT FASTINGP ERFORMED BY: ORTIZ MeenaAleksandr CroweWveucd8916 [facility] [place] [id number] URINALYSIS W/O MICRO (20424) Ordered By: Ssis Ssrs Developer on 10-14-2010 Appearance Nom (U) Clear Normal Compre hensive Internal Medicine Work Phone: Comment on above: PATIENT NOT FASTINGP ERFORMED BY: ORTIZ [facility] Aojmrk1904 [address] [place] [id number] Bilirubin Ql (U) Negative Normal Comprehe nsive Internal Medicine Work Phone: Comment on above: PATIENT NOT FASTINGP ERFORMED BY: ORTIZ LabKellieaustyn CroweQrqqfp[address] [facility] [facility] [place] [id number] Color Nom (U) Yellow Normal Comprehensi ve Internal Medicine Work Phone: Comment on above: PATIENT NOT FASTINGP ERFORMED BY: ORTIZ Crowelin[address] [facility] [id number] Glucose Ql (U) Negative Normal Comprehens trupti Internal Medicine Work Phone: Comment on above: PATIENT NOT FASTINGP ERFORMED BY: ORTIZ Nilda Ivpsol[address] [facility] [id number] Hemoglobin Ql (U) Negative Normal Compreh ensive Internal Medicine Work Phone: Comment on above: PATIENT NOT FASTINGP ERFORMED BY: ORTIZ Crowelin[address] [facility] [id number] Ketones Ql (U) Negative Normal Comprehens trupti Internal Medicine Work Phone: Comment on above: PATIENT NOT FASTINGP ERFORMED BY: ORTIZ Crowelin6370 [facility] [id number] Leukocyte esterase Test strip Ql (U) Negative Normal [facility] Medicine Work Phone: Comment on above: PATIENT NOT FASTINGP ERFORMED BY: ORTIZ Crowelin6370 [facility] [id number] Microscopic observation LM Nom (Urine sed) MICRON Normal [facility] Medicine Work Phone: Comment on above: Microscopic follows if indicated. PATIENT NOT FASTINGP ERFORMED BY: ORTIZ Crowelin6370 [facility] [id number] Nitrite Ql (U) Negative Normal Comprehens trupti Internal Medicine Work Phone: Comment on above: PATIENT NOT FASTINGP ERFORMED BY: ORTIZ Crowelin6370 [facility] [id number] pH (U) 6.5 [pH] Normal 5.0-7.5 [facility] Work Phone: Comment on above: PATIENT NOT FASTINGP ERFORMED BY: ORTIZ MeenaAleksandr CroweIbbkem[address] [facility] [id number] Protein Ql (U) Negative Normal Comprehens trupti Internal Medicine Work Phone: Comment on above: PATIENT NOT FASTINGP ERFORMED BY: ORTIZ Crowelin[address] [facility] [id number] Specific gravity Relative Density (U) 1.020 1 Normal 1.005-1.03 0 [facility] Work Phone: Comment on above: PATIENT NOT FASTINGP ERFORMED BY: ORTIZ Chester[address] [facility] [id number] Urobilinogen Test strip mass conc (U) 0.2 mg/dL Normal 0.0-1.9 Comprehensiv e Internal Medicine Work Phone: Comment on above: PATIENT NOT FASTINGP ERFORMED BY: ORTIZ [facility] Skwnuq7954 [address] [facility] [id number] VITAMIN B-12 (CYANOCOBALAMIN ) (66331)Ordered By: Ssis Ssrs Developer on 10-14-2010 Cobalamin (Vitamin B12) mass conc 246 pg/mL Normal 211-946 [facility] Work Phone: Comment on above: PATIENT NOT FASTINGP ERFORMED BY: ORTIZ Hou Hukjnz1481 [facility] [id number] LIPID PANEL (56095)Ordered B y: Ssis Ssrs Developer on 12-14-2009 Cholesterol in HDL mass conc 54 mg/dL Normal [facility] Work Phone: Comment on above: According to ATP-III Guidelines, HDL-C >59 mg/dL is considered anegative risk factor for CHD. PATIENT WAS FASTINGP ERFORMED BY: ORTIZ RobledoCo Vjarpl2171 [facility] [id number] Information: 667456,[id number] Cholesterol in LDL mass conc 111 mg/dL Abnormal 0-99 [facility] Work Phone: Comment on above: PATIENT WAS FASTINGP ERFORMED BY: [facility] Kgbdmb1684 [facility] [id number] Information: [id number],[id number] Cholesterol in LDL/Cholesterol in HDL mass ratio 2.1 {ratio_units} Normal 0.0-3.2 [facility] Work Phone: Comment on above: PATIENT WAS FASTINGP ERFORMED BY: [facility] Tllmrh[address] [facility] [id number] Information: 775644,[id number] Cholesterol in VLDL mass conc 21 mg/dL Normal 5-40 [facility] Work Phone: Comment on above: PATIENT WAS FASTINGP ERFORMED BY: ORTIZ [facility] Bslcky6460 [facility] [id number] Information: [id number],[id number] Cholesterol mass conc 186 mg/dL Normal 100-199 Com prehensive Internal Medicine Work Phone: Comment on above: PATIENT WAS FASTINGP ERFORMED BY: LabCoWeisman [facility]'s Rehabilitation HospitalBogldj9266 [facility] [id number] Information: 799781,[id number] Triglyceride mass conc 103 mg/dL Normal 0-149 [facility] Work Phone: Comment on above: PATIENT WAS FASTINGP ERFORMED BY: [address] [id number] Information: 145855,[id number] TSH (12646)Ordered By: Syste m Hybrid Tester on 12-14-2009 Thyrotropin Qn 1.680 {uIU/mL} Normal 0.450-4.50 0 [facility] Work Phone: Comment on above: PATIENT WAS FASTINGP ERFORMED BY: [facility]6370 [facility] [id number] CBC WITH MANUAL DIFF (30931) Ordered By: Ssis Ssrs Developer on 12-13-2009 Basophils #/vol (Bld) 0.0 {x10E3/uL} Normal 0.0-0.2 [facility] Work Phone: Comment on above: PATIENT NOT FASTINGP ERFORMED BY: [facility] Apwvic8739 [facility] [id number] Information: 924193,[id number] Basophils/100 WBC (Bld) 0 % Normal 0-3 [facility] Work Phone: Comment on above: PATIENT NOT FASTINGP ERFORMED BY: [facility]Core[facility]6370 [facility] [id number] Information: 786315,[id number] Eosinophils #/vol (Bld) 0.0 {x10E3/uL} Normal 0.0-0.4 [facility] Work Phone: Comment on above: PATIENT NOT FASTINGP ERFORMED BY: ORTIZ [facility] Qdtfnp5235 [facility] [id number] Information: 413013,[id number] Eosinophils/100 WBC (Bld) 0 % Normal 0-7 [facility] Work Phone: Comment on above: PATIENT NOT FASTINGP ERFORMED BY: LabCoTim[place] [id number] [facility] [id number] Information: [id number] Erythrocyte distribution width Ratio (RBC) 13.9 % Normal 11.7-15.0 [facility] Work Phone: Comment on above: PATIENT NOT FASTINGP ERFORMED BY: LabBrandy [place] [id number] [facility] [id number] Information: 655065,Z46976 Hematocrit Volume Fraction (Bld) 38.9 % Normal 34.0-44.0 [facility] Work Phone: Comment on above: PATIENT NOT FASTINGP ERFORMED BY: ORTIZ LabCoTim[place] [id number] [facility] [id number] Information: 870994,L16407 Hemoglobin mass conc (Bld) 13.7 g/dL Normal 11.5-15.0 [facility] Work Phone: Comment on above: PATIENT NOT FASTINGP ERFORMED BY: LabCoWeisman Children's Rehabilitation HospitalJhsfhk2699 [facility] [id number] Information: 511316,[id number] Lymphocytes #/vol (Bld) 1.3 {x10E3/uL} Normal 0.7-4.5 [facility] Work Phone: Comment on above: PATIENT NOT FASTINGP ERFORMED BY: LabCoTim[place] 3403670 [facility] [id number] Information: 759400,M64140 Lymphocytes/100 WBC (Bld) 20 % Normal 14-46 [facility] Medicine Work Phone: Comment on above: PATIENT NOT FASTINGP ERFORMED BY: ORTIZ Hou Lpihtr9931 [facility] [id number] Information: 345489,[id number] MCH Entitic mass (RBC) 31.3 pg Normal 27.0-34.0 [facility] Internal Medicine Work Phone: Comment on above: PATIENT NOT FASTINGP ERFORMED BY: ORTIZ [address] [id number] Information: 228893,[id number] MCHC mass conc (RBC) 35.2 g/dL Normal 32.0-36.0 [facility] Internal Medicine Work Phone: Comment on above: PATIENT NOT FASTINGP ERFORMED BY: [address] [id number] Information: [id number],[id number] MCV Entitic volume (RBC) 89 fL Normal 80-98 [facility] Internal Medicine Work Phone: Comment on above: PATIENT NOT FASTINGP ERFORMED BY: Meena[address] [id number] Information: 346875,J57011 Monocytes #/vol (Bld) 0.4 {x10E3/uL} Normal 0.1-1.0 [facility] Work Phone: Comment on above: PATIENT NOT FASTINGP ERFORMED BY: [place] [id number] [facility] [id number] Information: 020770,[id number] Monocytes/100 WBC (Bld) 6 % Normal 4-13 [facility] Medicine Work Phone: Comment on above: PATIENT NOT FASTINGP ERFORMED BY: [place] [id number] [facility] [id number] Information: [id number] Neutrophils #/vol (Bld) 5.0 {x10E3/uL} Normal 1.8-7.8 [facility] Work Phone: Comment on above: PATIENT NOT FASTINGP ERFORMED BY: ORTIZ Chester6370 [facility] [id number] Information: 794540,[id number] Neutrophils/100 WBC (Bld) 74 % Normal 40-74 [facility] Work Phone: Comment on above: PATIENT NOT FASTINGP ERFORMED BY: ORTIZ RobledoCoaustyn CroweVxpinq9994 [facility] [id number] Information: [id number] Platelets #/vol (Bld) 228 {x10E3/uL} Normal 140-415 [facility] Internal Medicine Work Phone: Comment on above: PATIENT NOT FASTINGP ERFORMED BY: ORTIZ Hou Owsbsu7366 [facility] [id number] Information: [id number] RBC #/vol (Bld) 4.38 {x10E6/uL} Normal 3.80-5.10 [facility] Internal Medicine Work Phone: Comment on above: PATIENT NOT FASTINGP ERFORMED BY: ROTIZ Crowelin6370 [facility] [id number] Information: 986310,[id number] WBC #/vol (Bld) 6.7 {x10E3/uL} Normal 4.0-10.5 [facility] Internal Medicine Work Phone: Comment on above: PATIENT NOT FASTINGP ERFORMED BY: ORTIZ [facility] Wpwvje7573 [facility] [id number] Information: 571986,[id number] METABOLIC PANEL, COMPREHENSI VE (15708)Ordered By: Ssis Ssrs Developer on 12-13-2009 Albumin mass conc 4.1 g/dL Normal 3.5-4.8 Compreh [facility] Internal Medicine Work Phone: Comment on above: PATIENT NOT FASTINGP ERFORMED BY: ORTIZ [facility] Nnwwhq4367 [facility] [id number] Albumin/Globulin mass ratio 1.7 {ratio} Normal 1.1-2.5 [facility] Work Phone: Comment on above: PATIENT NOT FASTINGP ERFORMED BY: ORTIZ LabCoaustyn ChesterZdjpgg5503 [address] [place] [id number] ALP enzyme act/vol 82 [iU]/L Normal 25-165 [facility] Work Phone: Comment on above: PATIENT NOT FASTINGP ERFORMED BY: ORTIZ [facility] Dkopbg2158 [facility] [place] [id number] ALT enzyme act/vol 12 [iU]/L Normal 0-40 [facility] Internal Medicine Work Phone: Comment on above: PATIENT NOT FASTINGP ERFORMED BY: ORTIZ LabCoaustyn Kkbsyy1741 [facility] [place] [id number] AST enzyme act/vol 19 [iU]/L Normal 0-40 [facility] Internal Medicine Work Phone: Comment on above: PATIENT NOT FASTINGP ERFORMED BY: ORTIZ LabKellierp Frzcdw3[address] [facility] [id number] Bilirubin mass conc 0.2 mg/dL Normal 0.1-1.2 Compr [facility] Internal Medicine Work Phone: Comment on above: PATIENT NOT FASTINGP ERFORMED BY: ORTIZ Ameyaaustyn CroweIizudg49[address] [facility] [id number] Calcium mass conc 9.6 mg/dL Normal 8.6-10.2 Compreh ensive Internal Medicine Work Phone: Comment on above: PATIENT NOT FASTINGP ERFORMED BY: ORTIZ [facility] Ieldnr5293 [facility] [place] [id number] Chloride molar conc 104 mmol/L Normal 97-108 Compr ensive Internal Medicine Work Phone: Comment on above: PATIENT NOT FASTINGP ERFORMED BY: ORTIZ [facility] Dssddu5798 [address] [place] [id number] CO2 molar conc 25 mmol/L Normal 20-32 Comprehens trupti Internal Medicine Work Phone: Comment on above: PATIENT NOT FASTINGP ERFORMED BY: ORTIZ [facility] Zelwqs3275 [facility] [place] [id number] Creatinine mass conc 0.71 mg/dL Normal 0.57-1.00 [facility] Work Phone: Comment on above: PATIENT NOT FASTINGP ERFORMED BY: ORTIZ [facility] Jtxwor3521 [facility] [place] [id number] GFR/1.73 sq M predicted among blacks MDRD vol rate/area (S/P/Bld) mL/min/{1.73_m2} Normal [facility] Work Phone: Comment on above: Note: Persistent red uction for 3 months or more in an eGFR<60 mL/min/1.73 m2 defines CKD. Patients with eGFR values>/=60 mL/min/1.73 m2 may also have CKD if evidence of persistentproteinuria is present. Additional information may be found [email or web address]. PATIENT NOT FASTINGP ERFORMED BY: [facility] Facvet7[address] [facility] [id number] GFR/1.73 sq M.predicted MDRD (S/P/Bld) [Vol rate/Area] mL/min/{1.73_m2} Normal [facility] Work Phone: Comment on above: PATIENT NOT FASTINGP ERFORMED BY: ORTIZ [facility] Hdqgls6[address] [facility] [id number] GFR/1.73 sq M.predicted MDRD vol rate/area mL/min/{1.73_m2} Normal [facility] Work Phone: Comment on above: PATIENT NOT FASTINGP ERFORMED BY: CB [facility] Eenfez5971 [facility] [place] [id number] Globulin mass conc (S) 2.4 g/dL Normal 1.5-4.5 [facility] Work Phone: Comment on above: PATIENT NOT FASTINGP ERFORMED BY: CB [facility] Lllwwl67[address] [facility] [id number] Glucose mass conc 89 mg/dL Normal 65-99 Compreh [facility] Internal Medicine Work Phone: Comment on above: PATIENT NOT FASTINGP ERFORMED BY: ORTIZ [facility] Jycrpz32[address] [facility] [id number] Potassium molar conc 5.0 mmol/L Normal 3.5-5.2 Comp rehensive Internal Medicine Work Phone: Comment on above: PATIENT NOT FASTINGP ERFORMED BY: ORTIZ [facility] Jakcco[address] [facility] [id number] Protein mass conc 6.5 g/dL Normal 6.0-8.5 Compreh ensive Internal Medicine Work Phone: Comment on above: PATIENT NOT FASTINGP ERFORMED BY: ORTIZ [facility] Grdnmd[address] [facility] [id number] Sodium molar conc 142 mmol/L Normal 135-145 Compreh ensive Internal Medicine Work Phone: Comment on above: PATIENT NOT FASTINGP ERFORMED BY: ORTIZ [facility] Opnzxi9744 [facility] [id number] Urea nitrogen mass conc 10 mg/dL Normal 5-26 [facility] Work Phone: Comment on above: PATIENT NOT FASTINGP ERFORMED BY: ORTIZ [facility] Nidzmw3226 [facility] [id number] Urea nitrogen/Creatinine mass ratio 14 mg/mg Normal 8-27 [facility] Work Phone: Comment on above: PATIENT NOT FASTINGP ERFORMED BY: ORTIZ [facility] Isetcf5732 [facility] [id number] Urinalysis, Office ([id number])Or dered By: Radha Velez on 09-21-2008 Bilirubin Ql (U) Negative Normal Comprehe nsive Internal Medicine Work Phone: Comment on above: done km Glucose Test strip mass conc (U) Negative Normal [facility] Work Phone: Comment on above: done km Hemoglobin Ql (U) Hemolyzed Large Normal Co mprehensive Internal Medicine Work Phone: Comment on above: done km Ketones Ql (U) Small Normal Comprehens trupti Internal Medicine Work Phone: Comment on above: done km Leukocyte esterase Test strip Ql (U) Small Normal [facility] Work Phone: Comment on above: done km Nitrite Ql (U) Positive Normal Comprehens trupti Internal Medicine Work Phone: Comment on above: done km pH (U) 6.5 [pH] Normal [facility] Work Phone: Comment on above: done km Protein Ql (U) 300 mg/dL Normal Comprehens trupti Internal Medicine Work Phone: Comment on above: done km Specific gravity Relative Density (U) 1.025 1 Normal Comprehensi ve Internal Medicine Work Phone: Comment on above: done km Urobilinogen mass/time (24H U) Normal Normal [facility] Work Phone: Comment on above: done km Culture, urine Bacteria identified Cx Nom (U) Escherichia coli [facility] Work Phone: Vital Signs Date Time Vital Sign Value Performing Clinician Facility 05-05-2019 10:14-0400 BMI (Body Mass Index) 33.02 kg/m2 Mirella Mccracken [facility] Internal Medicine Work Phone: 05-05-2019 10:14-0400 Body weight 74.16 kg Mirella Mccracken [facility] Internal Medicine Work Phone: 05-05-2019 10:14-0400 BP Diastolic 80 mm[Hg] Mirella Mccracken [facility] Internal Medicine Work Phone: Comment on above: Patient Position: Sitting; Cuff Location : Left Arm; Cuff Size: Large 05-05-2019 10:14-0400 BP Systolic 138 mm[Hg] Mirella Mccracken [facility] Internal Medicine Work Phone: Comment on above: Patient Position: Sitting; Cuff Location : Left Arm; Cuff Size: Large 05-05-2019 10:14-0400 BSA (Body Surface Area) 1.69 m2 Mirella Mccracken [facility] Internal Medicine Work Phone: 05-05-2019 10:14-0400 Height 149.86 cm [facility] Work Phone: 05-05-2019 10:14-0400 Pulse (Heart Rate) 68 /min Mirella Mccracken [facility] Internal Medicine Work Phone: Comment on above: Pattern: Regular 05-05-2019 10:14-0400 Pulse Oximetry 95 % Mirella Mccracken [facility] Internal Medicine Work Phone: Comment on above: Room air 05-05-2019 10:14-0400 Respiratory Rate 18 /min Mirella Mccracken [facility] Internal Medicine Work Phone: Comment on above: Pattern: Unlabored 03-15-2019 09:59-0400 BMI (Body Mass Index) 33.4 kg/m2 Mirella Mccracken [facility] Internal Medicine Work Phone: 03-15-2019 09:59-0400 Body weight 75.01 kg Mirella Mccracken [facility] Internal Medicine Work Phone: 03-15-2019 09:59-0400 BP Diastolic 82 mm[Hg] Mirella Mccracken [facility] Work Phone: Comment on above: Patient Position: Sitting; Cuff Location : Left Arm; Cuff Size: Large 03-15-2019 09:59-0400 BP Systolic 168 mm[Hg] Mirella Mccracken [facility] Work Phone: Comment on above: Patient Position: Sitting; Cuff Location : Left Arm; Cuff Size: Large 03-15-2019 09:59-0400 BSA (Body Surface Area) 1.7 m2 Mirella Mccracken [facility] Work Phone: 03-15-2019 09:59-0400 Height 149.86 cm Mirella Mccracken [facility] Work Phone: 03-15-2019 09:59-0400 Pulse (Heart Rate) 88 /min Mirella Mccracken [facility] Work Phone: Comment on above: Pattern: Regular 03-15-2019 09:59-0400 Pulse Oximetry 98 % Mirella Mccracken [facility] Work Phone: Comment on above: Room air 03-15-2019 09:59-0400 Respiratory Rate 18 /min Mirella Mccracken [facility] Work Phone: Comment on above: Pattern: Unlabored 01-21-2018 08:25-0400 BMI (Body Mass Index) 29.34 kg/m2 Mirella Mccracken [facility] Work Phone: 01-21-2018 08:25-0400 Body weight 65.89 kg Mirella Mccracken [facility] Work Phone: 01-21-2018 08:25-0400 BP Diastolic 84 mm[Hg] Mirella Mccracken [facility] Work Phone: Comment on above: Patient Position: Sitting; Cuff Location : Left Arm; Cuff Size: Large 01-21-2018 08:25-0400 BP Systolic 128 mm[Hg] Mirella Mccracken [facility] Work Phone: Comment on above: Patient Position: Sitting; Cuff Location : Left Arm; Cuff Size: Large 01-21-2018 08:25-0400 BSA (Body Surface Area) 1.61 m2 Mirella Mccracken [facility] Work Phone: 01-21-2018 08:25-0400 Height 149.86 cm Mirella Mccracken [facility] Work Phone: 01-21-2018 08:25-0400 Pulse (Heart Rate) 84 /min Mirella Mccracken [facility] Work Phone: Comment on above: Pattern: Regular 01-21-2018 08:25-0400 Pulse Oximetry 98 % Mirella Mccracken [facility] Work Phone: Comment on above: Room air 01-21-2018 08:25-0400 Respiratory Rate 18 /min Mirella Mccracken [facility] Work Phone: Comment on above: Pattern: Unlabored 01-21-2018 08:25-0400 Weight 65.89 kg Mirella Mccracken [facility] Work Phone: 11-09-2017 14:35-0500 BMI (Body Mass Index) 28.91 kg/m2 Mirella Kayens [facility] Work Phone: 11-09-2017 14:35-0500 Body weight 64.92 kg Mirella Mccracken [facility] Work Phone: 11-09-2017 14:35-0500 BP Diastolic 90 mm[Hg] Mirella Mccracken [facility] Work Phone: Comment on above: Patient Position: Sitting; Cuff Location : Left Arm; Cuff Size: Large 11-09-2017 14:35-0500 BP Systolic 148 mm[Hg] Mirella Mccracken [facility] Work Phone: Comment on above: Patient Position: Sitting; Cuff Location : Left Arm; Cuff Size: Large 11-09-2017 14:35-0500 BSA (Body Surface Area) 1.6 m2 Mirella Mccracken [facility] Work Phone: 11-09-2017 14:35-0500 Height 149.86 cm Mirella Mccracken [facility] Work Phone: 11-09-2017 14:35-0500 Pulse (Heart Rate) 67 /min Mirella Mccracken [facility] Work Phone: Comment on above: Pattern: Regular 11-09-2017 14:35-0500 Pulse Oximetry 98 % Mirella Mccracken [facility] Work Phone: Comment on above: Room air 11-09-2017 14:35-0500 Respiratory Rate 18 /min Mirella Mccracken [facility] Work Phone: Comment on above: Pattern: Unlabored 11-09-2017 14:35-0500 Weight 64.92 kg Mirella Mccracken [facility] Work Phone: 10-15-2017 09:58-0500 BMI (Body Mass Index) 28.91 kg/m2 Mirella Mccracken [facility] Work Phone: 10-15-2017 09:58-0500 Body weight 64.92 kg Mirella Mccracken [facility] Work Phone: 10-15-2017 09:58-0500 BP Diastolic 78 mm[Hg] Mirella Mccracken [facility] Work Phone: Comment on above: Patient Position: Sitting; Cuff Location : Left Arm; Cuff Size: Large 10-15-2017 09:58-0500 BP Systolic 146 mm[Hg] Mirella Mccracken [facility] Work Phone: Comment on above: Patient Position: Sitting; Cuff Location : Left Arm; Cuff Size: Large 10-15-2017 09:58-0500 BSA (Body Surface Area) 1.6 m2 Mirella Mccracken [facility] Work Phone: 10-15-2017 09:58-0500 Height 149.86 cm Mirella Mccracken [facility] Work Phone: 10-15-2017 09:58-0500 Pulse (Heart Rate) 74 /min Mirella Mccracken [facility] Work Phone: Comment on above: Pattern: Regular 10-15-2017 09:58-0500 Pulse Oximetry 99 % Mirella Mccracken [facility] Work Phone: Comment on above: Room air 10-15-2017 09:58-0500 Respiratory Rate 18 /min Mirella Mccracken [facility] Work Phone: Comment on above: Pattern: Unlabored 10-15-2017 09:58-0500 Weight 64.92 kg Mirella Mccracken [facility] Work Phone: 09-18-2017 09:08-0500 BMI (Body Mass Index) 28.91 kg/m2 Mirella Mccracken [facility] Work Phone: 09-18-2017 09:08-0500 Body weight 64.92 kg Mirella Mccracken [facility] Work Phone: 09-18-2017 09:08-0500 BP Diastolic 82 mm[Hg] Mirella Mccracken [facility] Work Phone: Comment on above: Patient Position: Sitting; Cuff Location : Left Arm; Cuff Size: Large 09-18-2017 09:08-0500 BP Systolic 128 mm[Hg] Mirella Mccracken [facility] Work Phone: Comment on above: Patient Position: Sitting; Cuff Location : Left Arm; Cuff Size: Large 09-18-2017 09:08-0500 BSA (Body Surface Area) 1.6 m2 Mirella Mccracken [facility] Work Phone: 09-18-2017 09:08-0500 Height 149.86 cm Mirella Mccracken [facility] Work Phone: 09-18-2017 09:08-0500 Pulse (Heart Rate) 72 /min Mirella Mccracken [facility] Work Phone: Comment on above: Pattern: Regular 09-18-2017 09:08-0500 Pulse Oximetry 98 % Mirella Mccracken [facility] Work Phone: Comment on above: Room air 09-18-2017 09:08-0500 Respiratory Rate 18 /min Mirella Mccracken [facility] Work Phone: Comment on above: Pattern: Unlabored 09-18-2017 09:08-0500 Weight 64.92 kg Mirella Mccracken [facility] Work Phone: 06-05-2017 11:24-0400 BMI (Body Mass Index) 29.67 kg/m2 [facility] Work Phone: 06-05-2017 11:24-0400 BP Diastolic 68 mm[Hg] [facility] Work Phone: 06-05-2017 11:24-0400 BP Systolic 126 mm[Hg] Matttalle [facility] Work Phone: 06-05-2017 11:24-0400 Height 147.32 cm [facility] Work Phone: 06-05-2017 11:24-0400 Pulse (Heart Rate) 72 /min [facility] Work Phone: 06-05-2017 11:24-0400 Respiratory Rate 18 /min [facility] Work Phone: 06-05-2017 11:24-0400 Weight 64.41 kg [facility] Work Phone: 05-07-2017 11:04-0400 BMI (Body Mass Index) 29.29 kg/m2 Mirella Mccracken [facility] Work Phone: 05-07-2017 11:04-0400 Body weight 65.77 kg Mirella Mccracken [facility] Work Phone: 05-07-2017 11:04-0400 BP Diastolic 82 mm[Hg] Mirella Mccracken [facility] Work Phone: Comment on above: Patient Position: Sitting; Cuff Location : Left Arm; Cuff Size: Standard 05-07-2017 11:04-0400 BP Systolic 128 mm[Hg] Mirella Mccracken [facility] Work Phone: Comment on above: Patient Position: Sitting; Cuff Location : Left Arm; Cuff Size: Standard 05-07-2017 11:04-0400 BSA (Body Surface Area) 1.61 m2 Mirella Mccracken [facility] Work Phone: 05-07-2017 11:04-0400 Height 149.86 cm Mirella Mccracken [facility] Work Phone: 05-07-2017 11:04-0400 Pulse (Heart Rate) 65 /min Mirella Mccracken [facility] Work Phone: Comment on above: Pattern: Regular 05-07-2017 11:04-0400 Pulse Oximetry 98 % Mirella Mccracken [facility] Work Phone: Comment on above: Room air 05-07-2017 11:04-0400 Respiratory Rate 18 /min Mirella Mccracken [facility] Work Phone: Comment on above: Pattern: Unlabored 05-07-2017 11:04-0400 Weight 65.77 kg Mirella Mccracken [facility] Work Phone: 03-26-2017 08:06-0400 BMI (Body Mass Index) 29.29 kg/m2 Mirellaleatha Solano [facility] Work Phone: 03-26-2017 08:06-0400 Body Temperature 97.5 [degF] Mirella Mccracken [facility] Work Phone: Comment on above: Method: Temporal 03-26-2017 08:06-0400 Body weight 65.77 kg Mirella Mccracken [facility] Work Phone: 03-26-2017 08:06-0400 BP Diastolic 84 mm[Hg] Mirella Mccracken [facility] Work Phone: Comment on above: Patient Position: Sitting; Cuff Location : Left Arm; Cuff Size: Large 03-26-2017 08:06-0400 BP Systolic 126 mm[Hg] Mirella Mccracken [facility] Work Phone: Comment on above: Patient Position: Sitting; Cuff Location : Left Arm; Cuff Size: Large 03-26-2017 08:06-0400 BSA (Body Surface Area) 1.61 m2 Mirella Mccracken [facility] Work Phone: 03-26-2017 08:06-0400 Height 149.86 cm Mirella Mccracken [facility] Work Phone: 03-26-2017 08:06-0400 Pulse (Heart Rate) 82 /min Mirella Mccracken [facility] Work Phone: Comment on above: Pattern: Regular 03-26-2017 08:06-0400 Pulse Oximetry 98 % Mirella Mccracken [facility] Work Phone: Comment on above: Room air 03-26-2017 08:06-0400 Respiratory Rate 16 /min Mirella Mccracken [facility] Work Phone: Comment on above: Pattern: Unlabored 03-26-2017 08:06-0400 Weight 65.77 kg Mirella Mccracken [facility] Work Phone: 12-25-2016 10:08-0400 BMI (Body Mass Index) 29.51 kg/m2 Mirella Solano [facility] Work Phone: 12-25-2016 10:08-0400 Body weight 66.28 kg Mirella Mccracken [facility] Work Phone: 12-25-2016 10:08-0400 BP Diastolic 80 mm[Hg] Mirella Mccracken [facility] Work Phone: Comment on above: Patient Position: Sitting; Cuff Location : Left Arm; Cuff Size: Large 12-25-2016 10:08-0400 BP Systolic 122 mm[Hg] Mirella Mccracken [facility] Work Phone: Comment on above: Patient Position: Sitting; Cuff Location : Left Arm; Cuff Size: Large 12-25-2016 10:08-0400 BSA (Body Surface Area) 1.61 m2 Mirella Mccracken [facility] Work Phone: 12-25-2016 10:08-0400 Height 149.86 cm Mirella Mccracken [facility] Work Phone: 12-25-2016 10:08-0400 Pulse (Heart Rate) 69 /min Mirella Mccracken [facility] Work Phone: Comment on above: Pattern: Regular 12-25-2016 10:08-0400 Pulse Oximetry 98 % Mirella Mccracken [facility] Work Phone: Comment on above: Room air 12-25-2016 10:08-0400 Respiratory Rate 18 /min Mirella Mccracken [facility] Work Phone: Comment on above: Pattern: Unlabored 12-25-2016 10:08-0400 Weight 66.28 kg Mirella Mccracken [facility] Work Phone: 11-03-2016 14:09-0500 BSA (Body Surface Area) 1.59 m2 [facility] Work Phone: 09-25-2016 07:51-0500 BMI (Body Mass Index) 29.94 kg/m2 Mirella Mccracken [facility] Work Phone: 09-25-2016 07:51-0500 Body Temperature 97.6 [degF] Mirella Mccracken [facility] Work Phone: 09-25-2016 07:51-0500 Body weight 67.25 kg Mirella Mccracken [facility] Work Phone: 09-25-2016 07:51-0500 BP Diastolic 78 mm[Hg] Mirella Mccracken [facility] Work Phone: Comment on above: Patient Position: Sitting; Cuff Location : Left Arm; Cuff Size: Standard 09-25-2016 07:51-0500 BP Systolic 122 mm[Hg] Mirella Mccracken [facility] Work Phone: Comment on above: Patient Position: Sitting; Cuff Location : Left Arm; Cuff Size: Standard 09-25-2016 07:51-0500 BSA (Body Surface Area) 1.62 m2 Mirella Mccracken [facility] Work Phone: 09-25-2016 07:51-0500 Height 149.86 cm Mirella Mccracken [facility] Work Phone: 09-25-2016 07:51-0500 Pulse (Heart Rate) 94 /min Mirella Mccracken [facility] Work Phone: Comment on above: Pattern: Regular 09-25-2016 07:51-0500 Pulse Oximetry 96 % Mirella Mccracken [facility] Work Phone: Comment on above: Room air 09-25-2016 07:51-0500 Respiratory Rate 17 /min Mirella Mccracken [facility] Work Phone: Comment on above: Pattern: Unlabored 09-25-2016 07:51-0500 Weight 67.25 kg Mirella Mccracken [facility] Work Phone: 06-25-2016 08:52-0400 BMI (Body Mass Index) 29.54 kg/m2 Mirella Mccracken [facility] Work Phone: 06-25-2016 08:52-0400 Body weight 66.34 kg Mirella Mccracken [facility] Work Phone: 06-25-2016 08:52-0400 BP Diastolic 60 mm[Hg] Mirella Mccracken [facility] Work Phone: Comment on above: Patient Position: Sitting; Cuff Location : Left Arm; Cuff Size: Standard 06-25-2016 08:52-0400 BP Systolic 110 mm[Hg] Mirella Mccracken [facility] Work Phone: Comment on above: Patient Position: Sitting; Cuff Location : Left Arm; Cuff Size: Standard 06-25-2016 08:52-0400 BSA (Body Surface Area) 1.61 m2 Mirella Mccracken [facility] Work Phone: 06-25-2016 08:52-0400 Height 149.86 cm Mirella Mccracken [facility] Work Phone: 06-25-2016 08:52-0400 Pulse (Heart Rate) 72 /min Mirella Mccracken [facility] Work Phone: Comment on above: Pattern: Regular 06-25-2016 08:52-0400 Pulse Oximetry 100 % Mirella Mccracken [facility] Work Phone: Comment on above: Room air 06-25-2016 08:52-0400 Respiratory Rate 18 /min Mirella Mccracken [facility] Work Phone: Comment on above: Pattern: Unlabored 06-25-2016 08:52-0400 Weight 66.34 kg Mirella Mccracken [facility] Work Phone: 05-21-2016 08:08-0400 BMI (Body Mass Index) 29.39 kg/m2 Mirella Mccracken [facility] Work Phone: 05-21-2016 08:08-0400 Body Temperature 97.2 [degF] Mirella Mccracken [facility] Work Phone: 05-21-2016 08:08-0400 Body weight 66 kg Mirella Mccracken [facility] Work Phone: 05-21-2016 08:08-0400 BP Diastolic 82 mm[Hg] Mirella Mccracken [facility] Work Phone: Comment on above: Patient Position: Sitting; Cuff Location : Left Arm; Cuff Size: Standard 05-21-2016 08:08-0400 BP Systolic 124 mm[Hg] Mirella Mccracken [facility] Work Phone: Comment on above: Patient Position: Sitting; Cuff Location : Left Arm; Cuff Size: Standard 05-21-2016 08:08-0400 BSA (Body Surface Area) 1.61 m2 Mirella Mccracken [facility] Work Phone: 05-21-2016 08:08-0400 Height 149.86 cm Mirella Mccracken [facility] Work Phone: 05-21-2016 08:08-0400 Pulse (Heart Rate) 80 /min Mirella Mccracken [facility] Work Phone: Comment on above: Pattern: Regular 05-21-2016 08:08-0400 Pulse Oximetry 98 % Mirella Mccracken [facility] Work Phone: Comment on above: Room air 05-21-2016 08:08-0400 Respiratory Rate 16 /min Mirella Mccracken [facility] Work Phone: Comment on above: Pattern: Unlabored 05-21-2016 08:08-0400 Weight 66 kg Mirella Mccracken [facility] Work Phone: 01-04-2016 09:52-0400 BMI (Body Mass Index) 29.59 kg/m2 Mirella Mccracken [facility] Work Phone: 01-04-2016 09:52-0400 Body weight 66.45 kg Mirella Mccracken [facility] Work Phone: 01-04-2016 09:52-0400 BP Diastolic 64 mm[Hg] Mirella Mccracken [facility] Work Phone: Comment on above: Patient Position: Sitting; Cuff Location : Left Arm; Cuff Size: Standard 01-04-2016 09:52-0400 BP Systolic 110 mm[Hg] Mirella Mccracken [facility] Work Phone: Comment on above: Patient Position: Sitting; Cuff Location : Left Arm; Cuff Size: Standard 01-04-2016 09:52-0400 BSA (Body Surface Area) 1.62 m2 Mirella Mccracken [facility] Work Phone: 01-04-2016 09:52-0400 Height 149.86 cm Mirella Mccracken [facility] Work Phone: 01-04-2016 09:52-0400 Pulse (Heart Rate) 64 /min Mirella Mccracken [facility] Work Phone: Comment on above: Pattern: Regular 01-04-2016 09:52-0400 Pulse Oximetry 97 % Mirella Mccracken [facility] Work Phone: Comment on above: Room air 01-04-2016 09:52-0400 Respiratory Rate 18 /min Mirella Mccracken [facility] Work Phone: Comment on above: Pattern: Unlabored 01-04-2016 09:52-0400 Weight 66.45 kg Mirella Mccracken [facility] Work Phone: 12-06-2015 09:19-0400 BMI (Body Mass Index) 29.89 kg/m2 Mirella Mccracken [facility] Work Phone: 12-06-2015 09:19-0400 Body weight 67.13 kg Mirella Mccracken [facility] Work Phone: 12-06-2015 09:19-0400 BP Diastolic 78 mm[Hg] Mirella Mccracken [facility] Work Phone: Comment on above: Patient Position: Sitting; Cuff Location : Left Arm; Cuff Size: Large 12-06-2015 09:19-0400 BP Systolic 122 mm[Hg] Mirella Mccracken [facility] Work Phone: Comment on above: Patient Position: Sitting; Cuff Location : Left Arm; Cuff Size: Large 12-06-2015 09:19-0400 BSA (Body Surface Area) 1.62 m2 Mirella Mccracken [facility] Work Phone: 12-06-2015 09:19-0400 Height 149.86 cm Mirella Mccracken [facility] Work Phone: 12-06-2015 09:19-0400 Pulse (Heart Rate) 73 /min Mirella Mccracken [facility] Work Phone: Comment on above: Pattern: Regular 12-06-2015 09:19-0400 Pulse Oximetry 99 % Mirella Mccracken [facility] Work Phone: Comment on above: Room air 12-06-2015 09:19-0400 Respiratory Rate 18 /min Mirella Mccracken [facility] Work Phone: Comment on above: Pattern: Unlabored 12-06-2015 09:19-0400 Weight 67.13 kg Mirella Mccracken [facility] Work Phone: 11-29-2015 09:09-0400 BMI (Body Mass Index) 29.72 kg/m2 Mirella Mccracken [facility] Work Phone: 11-29-2015 09:09-0400 Body Temperature 98.2 [degF] Mirella Mccracken [facility] Work Phone: Comment on above: Method: Oral 11-29-2015 09:09-0400 Body weight 66.74 kg Mirella Mccracken [facility] Work Phone: 11-29-2015 09:09-0400 BP Diastolic 58 mm[Hg] Mirella Mccracken [facility] Work Phone: Comment on above: Patient Position: Sitting; Cuff Location : Left Arm; Cuff Size: Large 11-29-2015 09:09-0400 BP Systolic 100 mm[Hg] Mirella Mccracken [facility] Work Phone: Comment on above: Patient Position: Sitting; Cuff Location : Left Arm; Cuff Size: Large 11-29-2015 09:09-0400 BSA (Body Surface Area) 1.62 m2 Mirella Mccracken [facility] Work Phone: 11-29-2015 09:09-0400 Height 149.86 cm Mirella Mccracken [facility] Work Phone: 11-29-2015 09:09-0400 Pulse (Heart Rate) 71 /min Mirella Mccracken [facility] Work Phone: Comment on above: Pattern: Regular 11-29-2015 09:09-0400 Pulse Oximetry 98 % Mirella Mccracken [facility] Work Phone: Comment on above: Room air 11-29-2015 09:09-0400 Respiratory Rate 18 /min Mirella Mccracken [facility] Work Phone: Comment on above: Pattern: Unlabored 11-29-2015 09:09-0400 Weight 66.74 kg Mirella Mccracken [facility] Work Phone: 10-24-2015 10:01-0500 BMI (Body Mass Index) 30.78 kg/m2 Mirella Mccracken [facility] Work Phone: Comment on above: [facility] 10:01-0500 Body weight 69.12 kg Mirella Mccracken [facility] Work Phone: Comment on above: [facility]-2015 10:01-0500 BP Diastolic 82 mm[Hg] [facility] Work [facility]: Comment on above: Patient Position: Sitting; Cuff Location : Left Arm; Cuff Size: Large [facility] 10:01-0500 BP Systolic 124 mm[Hg] Mirella Mccracken [facility] Work Phone: Comment on above: Patient Position: Sitting; Cuff Location : Left Arm; Cuff Size: Large [facility]-24-2015 10:01-0500 BSA (Body Surface Area) 1.64 m2 [facility] Work [facility]: Comment on above: [facility]-2015 10:01-0500 Height 149.86 cm Mirella [facility] Work Phone: Comment on above: [facility]-2015 10:01-0500 Pulse (Heart Rate) 66 /min Mirella Mccracken [facility] Work Phone: Comment on above: Pattern: Regular [facility]-24-2015 10:01-0500 Pulse Oximetry 98 % [facility] Work Phone: Comment on above: Room air [facility]-24-2015 10:01-0500 Respiratory Rate 18 /min [facility] Work Phone: Comment on above: Pattern: Unlabored Dr[facility]-24-2015 10:01-0500 Weight 69.12 kg Mirella Mccracken [facility] Work Phone: Comment on above: [facility] 07-26-2015 10:22-0500 BMI (Body Mass Index) 32.32 kg/m2 Mirella Searson [facility] Work Phone: 07-26-2015 10:22-0500 Body weight 72.58 kg Mirellazac Mccracken [facility] Work Phone: 07-26-2015 10:22-0500 BP Diastolic 80 mm[Hg] [facility] Work Phone: Comment on above: Patient Position: Sitting; Cuff Location : Left Arm; Cuff Size: Large 07-26-2015 10:22-0500 BP Systolic 138 mm[Hg] [facility] Work Phone: Comment on above: Patient Position: Sitting; Cuff Location : Left Arm; Cuff Size: Large 07-26-2015 10:22-0500 BSA (Body Surface Area) 1.68 m2 Mirella Mccracken [facility] Work Phone: 07-26-2015 10:22-0500 Height 149.86 cm [facility] Phone: 07-26-2015 10:22-0500 Pulse (Heart Rate) 62 /min Mirella [facility] Work Phone: Comment on above: Pattern: Regular 07-26-2015 10:22-0500 Pulse Oximetry 98 % Mirella [facility] Work Phone: Comment on above: Room air 07-26-2015 10:22-0500 Respiratory Rate 18 /min Mirella [facility] Work Phone: Comment on above: Pattern: Unlabored 07-26-2015 10:22-0500 Weight 72.58 kg Mirella [facility] Work Phone: 07-06-2015 09:03-0400 Body weight 72.12 kg Mirella [facility] Work Phone: 07-06-2015 09:03-0400 BP Diastolic 78 mm[Hg] Mirella [facility] Work Phone: Comment on above: Patient Position: Sitting; Cuff Location : Left Arm; Cuff Size: Large 07-06-2015 09:03-0400 BP Systolic 122 mm[Hg] Mirella [facility] Work Phone: Comment on above: Patient Position: Sitting; Cuff Location : Left Arm; Cuff Size: Large 07-06-2015 09:03-0400 Pulse (Heart Rate) 68 /min Mirella [facility] Work Phone: Comment on above: Pattern: Regular 07-06-2015 09:03-0400 Pulse Oximetry 98 % Mirella [facility] Work Phone: Comment on above: Room air 07-06-2015 09:03-0400 Respiratory Rate 18 /min Mirella [facility] Work Phone: Comment on above: Pattern: Unlabored 07-06-2015 09:03-0400 Weight 72.12 kg Mirella [facility] Work Phone: 04-19-2015 10:10-0400 BMI (Body Mass Index) 31.02 kg/m2 Mirella Solano [facility] Internal Medicine Work Phone: 04-19-2015 10:10-0400 Body Temperature 97.5 [degF] Mirella Mccracken [facility] Internal Medicine Work Phone: Comment on above: Method: Temporal 04-19-2015 10:10-0400 Body weight 69.67 kg Mirella Mccracken [facility] Internal Medicine Work Phone: 04-19-2015 10:10-0400 BP Diastolic 82 mm[Hg] Mirella Mccracken [facility] Internal Medicine Work Phone: Comment on above: Patient Position: Sitting; Cuff Location : Left Arm; Cuff Size: Standard 04-19-2015 10:10-0400 BP Systolic 124 mm[Hg] Mirella Mccracken [facility] Internal Medicine Work Phone: Comment on above: Patient Position: Sitting; Cuff Location : Left Arm; Cuff Size: Standard 04-19-2015 10:10-0400 BSA (Body Surface Area) 1.65 m2 Mirella Mccracken [facility] Internal Medicine Work Phone: 04-19-2015 10:10-0400 Height 149.86 cm Mirella Mccracken [facility] Internal Medicine Work Phone: 04-19-2015 10:10-0400 Pulse (Heart Rate) 62 /min Mirella Mccracken [facility] Internal Medicine Work Phone: Comment on above: Pattern: Regular 04-19-2015 10:10-0400 Pulse Oximetry 98 % Mirella Mccracken [facility] Internal Medicine Work Phone: Comment on above: Room air 04-19-2015 10:10-0400 Respiratory Rate 16 /min Mirella Mccracken [facility] Internal Medicine Work Phone: Comment on above: Pattern: Unlabored 04-19-2015 10:10-0400 Weight 69.67 kg Mirella Mccracken [facility] Internal Medicine Work Phone: 01-11-2015 10:29-0400 BMI (Body Mass Index) 31.2 kg/m2 Mirella Solano [facility] Internal Medicine Work Phone: 01-11-2015 10:29-0400 Body weight 70.08 kg Mirella [facility] Internal Medicine Work Phone: 01-11-2015 10:29-0400 BP Diastolic 80 mm[Hg] Mirella [facility] Internal Medicine Work Phone: Comment on above: Patient Position: Sitting; Cuff Location : Left Arm; Cuff Size: Standard 01-11-2015 10:29-0400 BP Systolic 128 mm[Hg] Mirella Mccracken [facility] Internal Medicine Work Phone: Comment on above: Patient Position: Sitting; Cuff Location : Left Arm; Cuff Size: Standard 01-11-2015 10:29-0400 BSA (Body Surface Area) 1.65 m2 Mirella Mccracken [facility] Internal Medicine Work Phone: 01-11-2015 10:29-0400 Height 149.86 cm Mirella Mccracken [facility] Internal Medicine Work Phone: 01-11-2015 10:29-0400 Pulse (Heart Rate) 56 /min Mirella Mccracken [facility] Internal Medicine Work Phone: Comment on above: Pattern: Regular 01-11-2015 10:29-0400 Pulse Oximetry 98 % Mirella Mccracken [facility] Internal Medicine Work Phone: Comment on above: Room air 01-11-2015 10:29-0400 Respiratory Rate 18 /min Mirella [facility] Internal Medicine Work Phone: Comment on above: Pattern: Unlabored 01-11-2015 10:29-0400 Weight 70.08 kg Mirella [facility] Internal Medicine Work Phone: 10-31-2014 11:54-0500 Body Temperature 98.4 [degF] Mirella Mccracken [facility] Internal Medicine Work Phone: Comment on above: Method: Oral 10-31-2014 11:54-0500 Body weight 70.76 kg Mirella [facility] Internal Medicine Work Phone: 10-31-2014 11:54-0500 BP Diastolic 64 mm[Hg] Mirella Mccracken [facility] Internal Medicine Work Phone: Comment on above: Patient Position: Sitting; Cuff Location : Left Arm; Cuff Size: Standard 10-31-2014 11:54-0500 BP Systolic 116 mm[Hg] Mirella Mccracken [facility] Internal Medicine Work Phone: Comment on above: Patient Position: Sitting; Cuff Location : Left Arm; Cuff Size: Standard 10-31-2014 11:54-0500 Pulse (Heart Rate) 52 /min Mirella Mccracken [facility] Internal Medicine Work Phone: Comment on above: Pattern: Regular 10-31-2014 11:54-0500 Pulse Oximetry 98 % Mirella Mccracken [facility] Internal Medicine Work Phone: Comment on above: Room air 10-31-2014 11:54-0500 Respiratory Rate 18 /min Mirella Mccracken [facility] Internal Medicine Work Phone: Comment on above: Pattern: Unlabored 10-31-2014 11:54-0500 Weight 70.76 kg Mirella Mccracken [facility] Internal Medicine Work Phone: 10-12-2014 10:10-0500 Body Temperature 96.2 [degF] Mirella Mccracken [facility] Internal Medicine Work Phone: Comment on above: Method: Oral [facility] 03/2014[facility] 10-12-2014 10:10-0500 Body weight 70.76 kg Mirella Mccracken [facility] Internal Medicine Work Phone: Comment on above: [facility] 03/2014[facility] 10-12-2014 10:10-0500 BP Diastolic 82 mm[Hg] Mirella Mccracken [facility] Internal Medicine Work Phone: Comment on above: Patient Position: Sitting; Cuff Location : Left Arm; Cuff Size: Large [facility] 03/2014[facility] 10-12-2014 10:10-0500 BP Systolic 132 mm[Hg] Mirella Mccracken [facility] Internal Medicine Work Phone: Comment on above: Patient Position: Sitting; Cuff Location : Left Arm; Cuff Size: Large [facility] 03/2014[facility] 10-12-2014 10:10-0500 Pulse (Heart Rate) 61 /min Mirella [facility] Work Phone: Comment on above: Pattern: Regular [facility] 03/2014[facility] 10-12-2014 10:10-0500 Pulse Oximetry 96 % Mirella [facility] Work Phone: Comment on above: Room air [facility] 03/2014[facility] 10-12-2014 10:10-0500 Respiratory Rate 18 /min Mirella [facility] Work Phone: Comment on above: Pattern: Unlabored [facility] 03/2014[facility] 10-12-2014 10:10-0500 Weight 70.76 kg Mirella [facility] Work Phone: Comment on above: [facility] 03/2014[facility] 08-31-2014 11:25-0500 Body weight 68.66 kg Mirella [facility] Work Phone: 08-31-2014 11:25-0500 BP Diastolic 82 mm[Hg] Mirella [facility] Work Phone: Comment on above: Patient Position: Sitting; Cuff Location : Left Arm; Cuff Size: Large 08-31-2014 11:25-0500 BP Systolic 138 mm[Hg] Mirella [facility] Work Phone: Comment on above: Patient Position: Sitting; Cuff Location : Left Arm; Cuff Size: Large 08-31-2014 11:25-0500 Pulse (Heart Rate) 56 /min Mirella [facility] Work Phone: Comment on above: Pattern: Regular 08-31-2014 11:25-0500 Respiratory Rate 18 /min Mirella [facility] Work Phone: Comment on above: Pattern: Unlabored 08-31-2014 11:25-0500 Weight 68.66 kg Mirella [facility] Work Phone: 08-14-2014 14:10-0500 Body Temperature 97.3 [degF] Mirella Mccracken [facility] Internal Medicine Work Phone: Comment on above: Method: Oral 08-14-2014 14:10-0500 Body weight 69.15 kg Mirella Mccracken [facility] Internal Medicine Work Phone: 08-14-2014 14:10-0500 BP Diastolic 72 mm[Hg] Mirella Mccracken [facility] Internal Medicine Work Phone: Comment on above: Patient Position: Sitting; Cuff Location : Left Arm; Cuff Size: Standard 08-14-2014 14:10-0500 BP Systolic 132 mm[Hg] Mirella Mccracken [facility] Internal Medicine Work Phone: Comment on above: Patient Position: Sitting; Cuff Location : Left Arm; Cuff Size: Standard 08-14-2014 14:10-0500 Pulse (Heart Rate) 53 /min Mirella Mccracken [facility] Internal Medicine Work Phone: Comment on above: Pattern: Regular 08-14-2014 14:10-0500 Pulse Oximetry 97 % Mirella Mccracken [facility] Internal Medicine Work Phone: Comment on above: Room air 08-14-2014 14:10-0500 Respiratory Rate 16 /min Mirella Mccracken [facility] Internal Medicine Work Phone: Comment on above: Pattern: Unlabored 08-14-2014 14:10-0500 Weight 69.15 kg Mirella Mccracken [facility] Internal Medicine Work Phone: 07-26-2014 10:15-0500 BMI (Body Mass Index) 30.55 kg/m2 Mirella Mccracken [facility] Internal Medicine Work Phone: 07-26-2014 10:15-0500 Body Temperature 97.4 [degF] Mirella Mccracken [facility] Internal Medicine Work Phone: Comment on above: Method: Oral 07-26-2014 10:15-0500 Body weight 68.61 kg Mirella Mccracken [facility] Internal Medicine Work Phone: 07-26-2014 10:15-0500 BP Diastolic 70 mm[Hg] Mirella Mccracken [facility] Internal Medicine Work Phone: Comment on above: Patient Position: Sitting; Cuff Location : Left Arm; Cuff Size: Standard 07-26-2014 10:15-0500 BP Systolic 110 mm[Hg] Mirella Mccracken [facility] Internal Medicine Work Phone: Comment on above: Patient Position: Sitting; Cuff Location : Left Arm; Cuff Size: Standard 07-26-2014 10:15-0500 BSA (Body Surface Area) 1.64 m2 Mirella Mccracken [facility] Internal Medicine Work Phone: 07-26-2014 10:15-0500 Height 149.86 cm Mirella Mccracken [facility] Internal Medicine Work Phone: 07-26-2014 10:15-0500 Pulse (Heart Rate) 66 /min Mirella Mccracken [facility] Internal Medicine Work Phone: Comment on above: Pattern: Regular 07-26-2014 10:15-0500 Pulse Oximetry 95 % Mirella Mccracken [facility] Internal Medicine Work Phone: Comment on above: Room air 07-26-2014 10:15-0500 Respiratory Rate 15 /min Mirella Mccracken [facility] Internal Medicine Work Phone: 07-26-2014 10:15-0500 Weight 68.61 kg Mirella Mccracken [facility] Internal Medicine Work Phone: 07-25-2014 14:56-0500 BMI (Body Mass Index) 30.55 kg/m2 Mirella Mccracken [facility] Internal Medicine Work Phone: 07-25-2014 14:56-0500 Body weight 68.61 kg Mirella Mccracken [facility] Internal Medicine Work Phone: 07-25-2014 14:56-0500 BP Diastolic 80 mm[Hg] Mirella Mccracken [facility] Internal Medicine Work Phone: Comment on above: Patient Position: Sitting; Cuff Location : Left Arm; Cuff Size: Large 07-25-2014 14:56-0500 BP Systolic 140 mm[Hg] Mirella Mccracken [facility] Internal Medicine Work Phone: Comment on above: Patient Position: Sitting; Cuff Location : Left Arm; Cuff Size: Large 07-25-2014 14:56-0500 BSA (Body Surface Area) 1.64 m2 Mirella Mccracken [facility] Internal Medicine Work Phone: 07-25-2014 14:56-0500 Height 149.86 cm Mirella Mccracken [facility] Internal Medicine Work Phone: 07-25-2014 14:56-0500 Pulse (Heart Rate) 59 /min Mirella Mccracken [facility] Internal Medicine Work Phone: Comment on above: Pattern: Regular 07-25-2014 14:56-0500 Pulse Oximetry 98 % Mirella Mccracken [facility] Internal Medicine Work Phone: Comment on above: Room air 07-25-2014 14:56-0500 Respiratory Rate 18 /min Mirella Mccracken [facility] Internal Medicine Work Phone: Comment on above: Pattern: Unlabored 07-25-2014 14:56-0500 Weight 68.61 kg Mirella Mccracken [facility] Internal Medicine Work Phone: 07-13-2014 12:20-0400 BMI (Body Mass Index) 30.5 kg/m2 Mirella Mccracken [facility] Internal Medicine Work Phone: 07-13-2014 12:20-0400 Body weight 68.49 kg Mirella Mccracken [facility] Internal Medicine Work Phone: 07-13-2014 12:20-0400 BP Diastolic 78 mm[Hg] Mirella Mccracken [facility] Internal Medicine Work Phone: Comment on above: Patient Position: Sitting; Cuff Location : Left Arm; Cuff Size: Large 07-13-2014 12:20-0400 BP Systolic 138 mm[Hg] Mirella Mccracken [facility] Internal Medicine Work Phone: Comment on above: Patient Position: Sitting; Cuff Location : Left Arm; Cuff Size: Large 07-13-2014 12:20-0400 BSA (Body Surface Area) 1.64 m2 Mirella Mccracken [facility] Internal Medicine Work Phone: 07-13-2014 12:20-0400 Height 149.86 cm Mirella Mccracken [facility] Internal Medicine Work Phone: 07-13-2014 12:20-0400 Pulse (Heart Rate) 58 /min Mirella Mccracken [facility] Internal Medicine Work Phone: Comment on above: Pattern: Regular 07-13-2014 12:20-0400 Pulse Oximetry 96 % Mirella Mccracken [facility] Internal Medicine Work Phone: Comment on above: Room air 07-13-2014 12:20-0400 Respiratory Rate 20 /min Mirella Mccracken [facility] Internal Medicine Work Phone: Comment on above: Pattern: Unlabored 07-13-2014 12:20-0400 Weight 68.49 kg Mirella Mccracken [facility] Internal Medicine Work Phone: 04-17-2014 11:27-0400 BMI (Body Mass Index) 30.59 kg/m2 Mirella Mccracken [facility] Internal Medicine Work Phone: 04-17-2014 11:27-0400 Body weight 68.69 kg Mirella Mccracken [facility] Internal Medicine Work Phone: 04-17-2014 11:27-0400 BP Diastolic 70 mm[Hg] Mirella Mccracken [facility] Internal Medicine Work Phone: Comment on above: Patient Position: Sitting; Cuff Location : Left Arm; Cuff Size: Large 04-17-2014 11:27-0400 BP Systolic 124 mm[Hg] Mirella Mccracken [facility] Internal Medicine Work Phone: Comment on above: Patient Position: Sitting; Cuff Location : Left Arm; Cuff Size: Large 04-17-2014 11:27-0400 BSA (Body Surface Area) 1.64 m2 Mirella Mccracken [facility] Internal Medicine Work Phone: 04-17-2014 11:27-0400 Height 149.86 cm Mirella Mccracken [facility] Internal Medicine Work Phone: 04-17-2014 11:27-0400 Pulse (Heart Rate) 72 /min Mirella Mccracken [facility] Internal Medicine Work Phone: Comment on above: Pattern: Regular 04-17-2014 11:27-0400 Pulse Oximetry 97 % Mirella Mccracken [facility] Internal Medicine Work Phone: Comment on above: Room air 04-17-2014 11:27-0400 Respiratory Rate 18 /min Mirella Mccracken [facility] Internal Medicine Work Phone: Comment on above: Pattern: Unlabored 04-17-2014 11:270400 Weight 68.69 kg Mirella Mccracken [facility] Internal Medicine Work Phone: 04-06-2014 11:09-0400 BMI (Body Mass Index) 30.59 kg/m2 Mirella Mccracken [facility] Internal Medicine Work Phone: 04-06-2014 11:040 Body weight 68.69 kg Mirella Mccracken [facility] Internal Medicine Work Phone: 04-06-2014 11:09-0400 BP Diastolic 80 mm[Hg] Mirella Mccracken [facility] Internal Medicine Work Phone: Comment on above: Patient Position: Sitting; Cuff Location : Left Arm; Cuff Size: Standard 04-06-2014 11:090400 BP Systolic 142 mm[Hg] Mirella Mccracken [facility] Internal Medicine Work Phone: Comment on above: Patient Position: Sitting; Cuff Location : Left Arm; Cuff Size: Standard 04-06-2014 11:090400 BSA (Body Surface Area) 1.64 m2 Mirella Mccracken [facility] Internal Medicine Work Phone: 04-06-2014 11:09040 Height 149.86 cm Mirella Mccracken [facility] Internal Medicine Work Phone: 04-06-2014 11:09-0400 Pulse (Heart Rate) 73 /min Mirella Mccracken [facility] Internal Medicine Work Phone: Comment on above: Pattern: Regular 04-06-2014 11:09040 Pulse Oximetry 97 % Mirella Mccracken [facility] Internal Medicine Work Phone: Comment on above: Room air 04-06-2014 11:090400 Respiratory Rate 18 /min Mirella Mccracken [facility] Internal Medicine Work Phone: Comment on above: Pattern: Unlabored 04-06-2014 11:0400 Weight 68.69 kg Mirella Mccracken [facility] Internal Medicine Work Phone: 12-30-2013 10:270400 BMI (Body Mass Index) 32.03 kg/m2 Mirella Solano [facility] Internal Medicine Work Phone: 12-30-2013 10:27-0400 Body Temperature 98.2 [degF] Mirella Mccracken [facility] Internal Medicine Work Phone: Comment on above: Method: Oral 12-30-2013 10:0400 Body weight 71.92 kg Mirella Mccracken [facility] Internal Medicine Work Phone: 12-30-2013 10:270400 BP Diastolic 70 mm[Hg] Mirella Mccracken [facility] Internal Medicine Work Phone: Comment on above: Patient Position: Sitting; Cuff Location : Left Arm; Cuff Size: Large 12-30-2013 10:270400 BP Systolic 120 mm[Hg] Mirella Mccracken [facility] Internal Medicine Work Phone: Comment on above: Patient Position: Sitting; Cuff Location : Left Arm; Cuff Size: Large 12-30-2013 10:0400 BSA (Body Surface Area) 1.67 m2 Mirella Mccracken [facility] Internal Medicine Work Phone: 12-30-2013 10:270400 Height 149.86 cm Mirella Mccracken [facility] Internal Medicine Work Phone: 12-30-2013 10:27-0400 Pulse (Heart Rate) 66 /min Mirella Mccracken [facility] Internal Medicine Work Phone: Comment on above: Pattern: Regular 12-30-2013 10:0400 Pulse Oximetry 97 % Mirella Mccracken [facility] Internal Medicine Work Phone: Comment on above: Room air 12-30-2013 10:0400 Respiratory Rate 20 /min Mirella Mccracken [facility] Internal Medicine Work Phone: Comment on above: Pattern: Unlabored 12-30-2013 10:0400 Weight 71.92 kg Mirella Mccracken [facility] Internal Medicine Work Phone: 12-22-2013 10:09-0400 BMI (Body Mass Index) 31.79 kg/m2 Mirella Mccracken [facility] Internal Medicine Work Phone: 12-22-2013 10:09-0400 Body Temperature 98.2 [degF] Mirella Mccracken [facility] Internal Medicine Work Phone: Comment on above: Method: Oral 12-22-2013 10:090400 Body weight 71.39 kg Mirella Mccracken [facility] Medicine Work Phone: 12-22-2013 10:09-0400 BP Diastolic 60 mm[Hg] Mirella Mccracken [facility] Internal Medicine Work Phone: Comment on above: Patient Position: Sitting; Cuff Location : Left Arm; Cuff Size: Large 12-22-2013 10:090400 BP Systolic 104 mm[Hg] Mirella Mccracken [facility] Internal Medicine Work Phone: Comment on above: Patient Position: Sitting; Cuff Location : Left Arm; Cuff Size: Large 12-22-2013 10:090400 BSA (Body Surface Area) 1.67 m2 Mirella Mccracken [facility] Internal Medicine Work Phone: 12-22-2013 10:09-0400 Height 149.86 cm Mirella Mccracken [facility] Medicine Work Phone: 12-22-2013 10:09-0400 Pulse (Heart Rate) 65 /min Mirella Mccracken [facility] Internal Medicine Work Phone: Comment on above: Pattern: Regular 12-22-2013 10:090400 Pulse Oximetry 98 % Mirella Mccracken [facility] Internal Medicine Work Phone: Comment on above: Room air 12-22-2013 10:09-0400 Respiratory Rate 20 /min Mirella Mccracken [facility] Work Phone: Comment on above: Pattern: Unlabored 12-22-2013 10:09-0400 Weight 71.39 kg Mirella Mccracken [facility] Medicine Work Phone: 12-01-2013 09:54-0400 BMI (Body Mass Index) 32.32 kg/m2 Mirella Mccracken [facility] Internal Medicine Work Phone: 12-01-2013 09:54-0400 Body Temperature 98.4 [degF] Mirella Mccracken [facility] Internal Medicine Work Phone: Comment on above: Method: Temporal 12-01-2013 09:54-0400 Body weight 72.58 kg Mirella Mccracken [facility] Medicine Work Phone: 12-01-2013 09:54-0400 BP Diastolic 62 mm[Hg] Mirella Mccracken [facility] Medicine Work Phone: Comment on above: Patient Position: Sitting; Cuff Location : Left Arm; Cuff Size: Standard 12-01-2013 09:54-0400 BP Systolic 124 mm[Hg] Mirella Mccracken [facility] Medicine Work Phone: Comment on above: Patient Position: Sitting; Cuff Location : Left Arm; Cuff Size: Standard 12-01-2013 09:54-0400 BSA (Body Surface Area) 1.68 m2 Mirella Mccracken [facility] Internal Medicine Work Phone: 12-01-2013 09:54-0400 Height 149.86 cm Mirella Mccracken [facility] Work Phone: 12-01-2013 09:54-0400 Pulse (Heart Rate) 69 /min Mirella Mccracken [facility] Medicine Work Phone: Comment on above: Pattern: Regular 12-01-2013 09:54-0400 Pulse Oximetry 97 % Mirella Mccracken [facility] Medicine Work Phone: Comment on above: Room air 12-01-2013 09:54-0400 Respiratory Rate 16 /min Mirella Mccracken [facility] Work Phone: Comment on above: Pattern: Unlabored 12-01-2013 09:54-0400 Weight 72.58 kg Mirella Mccracken [facility] Medicine Work Phone: 09-23-2013 11:57-0500 BMI (Body Mass Index) 33.01 kg/m2 Mirella [facility] Internal [facility] Work Phone: 09-23-2013 11:57-0500 Body weight 74.14 kg Mirella Mccracken [facility] Work Phone: 09-23-2013 11:57-0500 BP Diastolic 80 mm[Hg] Mirella Mccracken [facility] Medicine Work Phone: Comment on above: Patient Position: Sitting; Cuff Location : Left Arm; Cuff Size: Large 09-23-2013 11:57-0500 BP Systolic 122 mm[Hg] Mirella Mccracken [facility] Medicine Work Phone: Comment on above: Patient Position: Sitting; Cuff Location : Left Arm; Cuff Size: Large 09-23-2013 11:57-0500 BSA (Body Surface Area) 1.69 m2 Mirella Mccracken [facility] Internal Medicine Work Phone: 09-23-2013 11:57-0500 Height 149.86 cm Mirella Mccracken [facility] Work Phone: 09-23-2013 11:57-0500 Pulse (Heart Rate) 66 /min Mirella Mccracken [facility] Internal Medicine Work Phone: Comment on above: Pattern: Regular 09-23-2013 11:57-0500 Pulse Oximetry 98 % Mirella Mccracken [facility] Internal Medicine Work Phone: Comment on above: Room air 09-23-2013 11:57-0500 Respiratory Rate 18 /min Mirella Mccracken [facility] Work Phone: Comment on above: Pattern: Unlabored 09-23-2013 11:57-0500 Weight 74.14 kg Mirella Mccracken [facility] Medicine Work Phone: 08-01-2013 10:54-0500 BMI (Body Mass Index) 33.58 kg/m2 Mirella Solano [facility] Internal Medicine Work Phone: 08-01-2013 10:54-0500 Body Temperature 98.3 [degF] Mirella Mccracken [facility] Internal Medicine Work Phone: Comment on above: Method: Oral 08-01-2013 10:54-0500 Body weight 75.41 kg Mirella Mccracken [facility] Internal Medicine Work Phone: 08-01-2013 10:54-0500 BP Diastolic 60 mm[Hg] Mirella Mccracken [facility] Medicine Work Phone: Comment on above: Patient Position: Sitting; Cuff Location : Left Arm; Cuff Size: Large 08-01-2013 10:54-0500 BP Systolic 102 mm[Hg] Mirella Mccracken [facility] Internal Medicine Work Phone: Comment on above: Patient Position: Sitting; Cuff Location : Left Arm; Cuff Size: Large 08-01-2013 10:54-0500 BSA (Body Surface Area) 1.7 m2 Mirella Mccracken [facility] Internal Medicine Work Phone: 08-01-2013 10:54-0500 Height 149.86 cm Mirella Mccracken [facility] Internal Medicine Work Phone: 08-01-2013 10:54-0500 Pulse (Heart Rate) 68 /min Mirella Mccracken [facility] Internal Medicine Work Phone: Comment on above: Pattern: Regular 08-01-2013 10:54-0500 Pulse Oximetry 97 % Mirella Mccracken [facility] Internal Medicine Work Phone: Comment on above: Room air 08-01-2013 10:54-0500 Respiratory Rate 20 /min Mirella Mccracken [facility] Internal Medicine Work Phone: Comment on above: Pattern: Unlabored 08-01-2013 10:54-0500 Weight 75.41 kg Mirella Mccracken [facility] Internal Medicine Work Phone: 07-04-2013 09:33-0400 BMI (Body Mass Index) 33.73 kg/m2 Mirella Mccracken [facility] Internal Medicine Work Phone: Comment on above: hearing wnlvision Dr. Jones 07-04-2013 09:33-0400 Body Temperature 98.2 [degF] Mirella Mccracken [facility] Internal Medicine Work Phone: Comment on above: Method: Oral hearing wnlvision Dr Samaria Jones 07-04-2013 09:33-0400 Body weight 75.75 kg [facility] Medicine Work Phone: Comment on above: hearing wnlvision Dr. Jones 07-04-2013 09:33-0400 BP Diastolic 62 mm[Hg] [facility] Medicine Work Phone: Comment on above: Patient Position: Sitting; Cuff Location : Left Arm; Cuff Size: Large hearing wnlvision Dr Samaria Jones 07-04-2013 09:33-0400 BP Systolic 120 mm[Hg] [facility] Internal Medicine Work Phone: Comment on above: Patient Position: Sitting; Cuff Location : Left Arm; Cuff Size: Large hearing wnlvision Dr Samaria Jones 07-04-2013 09:33-0400 BSA (Body Surface Area) 1.71 m2 [facility] Internal Medicine Work Phone: Comment on above: hearing wnlvision Dr. Jones 07-04-2013 09:33-0400 Height 149.86 cm [facility] Internal Medicine Work Phone: Comment on above: hearing wnlvision Dr. Jones 07-04-2013 09:33-0400 Pulse (Heart Rate) 52 /min [facility] Medicine Work Phone: Comment on above: Pattern: Regular hearing wnlvision Dr Samaria Jones 07-04-2013 09:33-0400 Pulse Oximetry 97 % [facility] Medicine Work Phone: Comment on above: Room air hearing wnlvision Dr Samaria Jones 07-04-2013 09:33-0400 Respiratory Rate 20 /min [facility] Medicine Work Phone: Comment on above: Pattern: Unlabored hearing wnlvision Dr Samaria Jones 07-04-2013 09:33-0400 Weight 75.75 kg [facility] Medicine Work Phone: Comment on above: hearing wnlvision Dr. Jones 06-27-2013 14:49-0400 BMI (Body Mass Index) 33.73 kg/m2 [facility] Internal Medicine Work Phone: 06-27-2013 14:49-0400 Body weight 75.75 kg Mirella Mccracken [facility] Internal Medicine Work Phone: 06-27-2013 14:49-0400 BP Diastolic 62 mm[Hg] Mirella Mccracken [facility] Internal Medicine Work Phone: Comment on above: Patient Position: Sitting; Cuff Location : Left Arm; Cuff Size: Large 06-27-2013 14:49-0400 BP Systolic 128 mm[Hg] Mirella Mccracken [facility] Internal Medicine Work Phone: Comment on above: Patient Position: Sitting; Cuff Location : Left Arm; Cuff Size: Large 06-27-2013 14:49-0400 BSA (Body Surface Area) 1.71 m2 Mirella Mccracken [facility] Internal Medicine Work Phone: 06-27-2013 14:49-0400 Height 149.86 cm Mirella Mccracken [facility] Internal Medicine Work Phone: 06-27-2013 14:49-0400 Pulse (Heart Rate) 61 /min Mirella Mccracken [facility] Internal Medicine Work Phone: Comment on above: Pattern: Regular 06-27-2013 14:49-0400 Pulse Oximetry 98 % Mirella Mccracken [facility] Internal Medicine Work Phone: Comment on above: Room air 06-27-2013 14:49-0400 Respiratory Rate 20 /min Mirella Mccracken [facility] Internal Medicine Work Phone: Comment on above: Pattern: Unlabored 06-27-2013 14:49-0400 Weight 75.75 kg Mirella Mccracken [facility] Internal Medicine Work Phone: 06-20-2013 12:56-0400 BMI (Body Mass Index) 33.53 kg/m2 Mirella Mccracken [facility] Internal Medicine Work Phone: 06-20-2013 12:56-0400 Body Temperature 97.6 [degF] Mirella Mccracken [facility] Internal Medicine Work Phone: Comment on above: Method: Oral 06-20-2013 12:56-0400 Body weight 75.3 kg Mirella Mccracken [facility] Internal Medicine Work Phone: 06-20-2013 12:56-0400 BP Diastolic 68 mm[Hg] Mirella Mccracken [facility] Internal Medicine Work Phone: Comment on above: Patient Position: Sitting; Cuff Location : Left Arm; Cuff Size: Standard 06-20-2013 12:56-0400 BP Systolic 118 mm[Hg] Mirella Mccracken [facility] Internal Medicine Work Phone: Comment on above: Patient Position: Sitting; Cuff Location : Left Arm; Cuff Size: Standard 06-20-2013 12:56-0400 BSA (Body Surface Area) 1.7 m2 Mirella Mccracken [facility] Internal Medicine Work Phone: 06-20-2013 12:56-0400 Height 149.86 cm Mirella Mccracken [facility] Internal Medicine Work Phone: 06-20-2013 12:56-0400 Pulse (Heart Rate) 68 /min Mirella Mccracken [facility] Internal Medicine Work Phone: Comment on above: Pattern: Regular 06-20-2013 12:56-0400 Respiratory Rate 20 /min Mirella Mccracken [facility] Internal Medicine Work Phone: Comment on above: Pattern: Unlabored 06-20-2013 12:56-0400 Weight 75.3 kg Mirella Mccracken [facility] Internal Medicine Work Phone: 05-20-2013 08:13-0400 BMI (Body Mass Index) 33.63 kg/m2 Mirella Mccracken [facility] Internal Medicine Work Phone: 05-20-2013 08:13-0400 Body weight 75.52 kg Mirella Mccracken [facility] Internal Medicine Work Phone: 05-20-2013 08:13-0400 BP Diastolic 62 mm[Hg] Mirella Mccracken [facility] Internal Medicine Work Phone: Comment on above: Patient Position: Sitting; Cuff Location : Left Arm; Cuff Size: Standard 05-20-2013 08:13-0400 BP Systolic 128 mm[Hg] Mirella Mccracken [facility] Internal Medicine Work Phone: Comment on above: Patient Position: Sitting; Cuff Location : Left Arm; Cuff Size: Standard 05-20-2013 08:13-0400 BSA (Body Surface Area) 1.71 m2 Mirella Mccracken [facility] Internal Medicine Work Phone: 05-20-2013 08:13-0400 Height 149.86 cm Mirella Mccracken [facility] Medicine Work Phone: 05-20-2013 08:13-0400 Pulse (Heart Rate) 60 /min Mirella Mccracken [facility] Internal Medicine Work Phone: Comment on above: Pattern: Regular 05-20-2013 08:13-0400 Respiratory Rate 20 /min Mirella Mccracken [facility] Internal Medicine Work Phone: Comment on above: Pattern: Unlabored 05-20-2013 08:13-0400 Weight 75.52 kg Mirella Mccracken [facility] Internal Medicine Work Phone: 04-22-2013 15:16-0400 BMI (Body Mass Index) 33.63 kg/m2 Mirella Mccracken [facility] Internal Medicine Work Phone: 04-22-2013 15:16-0400 Body Temperature 96 [degF] Mirella Mccracken [facility] Internal Medicine Work Phone: Comment on above: Method: Oral 04-22-2013 15:16-0400 Body weight 75.52 kg Mirella Mccracken [facility] Internal Medicine Work Phone: 04-22-2013 15:16-0400 BP Diastolic 74 mm[Hg] Mirella Mccracken [facility] Internal Medicine Work Phone: Comment on above: Patient Position: Sitting; Cuff Location : Left Arm; Cuff Size: Large 04-22-2013 15:16-0400 BP Systolic 126 mm[Hg] Mirella Mccracken [facility] Internal Medicine Work Phone: Comment on above: Patient Position: Sitting; Cuff Location : Left Arm; Cuff Size: Large 04-22-2013 15:16-0400 BSA (Body Surface Area) 1.71 m2 Mirella Mccracken [facility] Internal Medicine Work Phone: 04-22-2013 15:16-0400 Height 149.86 cm Mirella Mccracken [facility] Medicine Work Phone: 04-22-2013 15:16-0400 Pulse (Heart Rate) 64 /min Mirella Mccracken [facility] Internal Medicine Work Phone: Comment on above: Pattern: Regular 04-22-2013 15:16-0400 Respiratory Rate 18 /min Mirella Mccracken [facility] Internal Medicine Work Phone: Comment on above: Pattern: Unlabored 04-22-2013 15:16-0400 Weight 75.52 kg Mirella Mccracken [facility] Internal Medicine Work Phone: 04-15-2013 15:12-0400 BMI (Body Mass Index) 34.65 kg/m2 Mirella Mccracken [facility] Internal Medicine Work Phone: 04-15-2013 15:12-0400 Body Temperature 98 [degF] Mirella Mccracken [facility] Internal Medicine Work Phone: Comment on above: Method: Oral 04-15-2013 15:12-0400 Body weight 77.82 kg Mirella Mccracken [facility] Medicine Work Phone: 04-15-2013 15:12-0400 BP Diastolic 70 mm[Hg] Mirella Mccracken [facility] Medicine Work Phone: Comment on above: Patient Position: Sitting; Cuff Location : Left Arm; Cuff Size: Standard 04-15-2013 15:12-0400 BP Systolic 120 mm[Hg] Mirella Mccracken [facility] Medicine Work Phone: Comment on above: Patient Position: Sitting; Cuff Location : Left Arm; Cuff Size: Standard 04-15-2013 15:12-0400 BSA (Body Surface Area) 1.73 m2 Mirella Mccracken [facility] Medicine Work Phone: 04-15-2013 15:12-0400 Height 149.86 cm Mirella Mccracken [facility] Medicine Work Phone: 04-15-2013 15:12-0400 Pulse (Heart Rate) 64 /min Mirella Mccracken [facility] Medicine Work Phone: Comment on above: Pattern: Regular 04-15-2013 15:12-0400 Pulse Oximetry 98 % Mirella Mccracken [facility] Medicine Work Phone: Comment on above: Room air 04-15-2013 15:12-0400 Weight 77.82 kg Mirella Mccracken [facility] Medicine Work Phone: 03-31-2013 11:15-0400 BMI (Body Mass Index) 32.96 kg/m2 Mirella Mccracken [facility] Internal Medicine Work Phone: 03-31-2013 11:15-0400 Body Temperature 97.5 [degF] Mirella Mccracken [facility] Internal Medicine Work Phone: Comment on above: Method: Oral 03-31-2013 11:15-0400 Body weight 74.02 kg Mirella Mccracken [facility] Medicine Work Phone: 03-31-2013 11:15-0400 BP Diastolic 60 mm[Hg] Mirella Mccracken [facility] Medicine Work Phone: Comment on above: Patient Position: Sitting; Cuff Location : Left Arm; Cuff Size: Large 03-31-2013 11:15-0400 BP Systolic 118 mm[Hg] Mirella Mccracken [facility] Medicine Work Phone: Comment on above: Patient Position: Sitting; Cuff Location : Left Arm; Cuff Size: Large 03-31-2013 11:15-0400 BSA (Body Surface Area) 1.69 m2 Mirella Mccracken [facility] Medicine Work Phone: 03-31-2013 11:15-0400 Height 149.86 cm Mirella Mccracken [facility] Medicine Work Phone: 03-31-2013 11:15-0400 Pulse (Heart Rate) 60 /min Mirella Mccracken [facility] Medicine Work Phone: Comment on above: Pattern: Regular 03-31-2013 11:15-0400 Respiratory Rate 20 /min Mirella Mccracken [facility] Medicine Work Phone: Comment on above: Pattern: Unlabored 03-31-2013 11:15-0400 Weight 74.02 kg Mirella Mccracken [facility] Medicine Work Phone: 02-28-2013 09:53-0400 BMI (Body Mass Index) 32.57 kg/m2 Mirella [facility] Medicine Work Phone: 02-28-2013 09:53-0400 Body Temperature 98.3 [degF] Mirella Mccracken [facility] Internal Medicine Work Phone: Comment on above: Method: Oral 02-28-2013 09:53-0400 Body weight 73.14 kg Mirella Mccracken [facility] Medicine Work Phone: 02-28-2013 09:53-0400 BP Diastolic 62 mm[Hg] Mirella Mccracken [facility] Medicine Work Phone: Comment on above: Patient Position: Sitting; Cuff Location : Left Arm; Cuff Size: Large 02-28-2013 09:53-0400 BP Systolic 120 mm[Hg] Mirella Mccracken [facility] Medicine Work Phone: Comment on above: Patient Position: Sitting; Cuff Location : Left Arm; Cuff Size: Large 02-28-2013 09:53-0400 BSA (Body Surface Area) 1.68 m2 Mirella Mccracken [facility] Internal Medicine Work Phone: 02-28-2013 09:53-0400 Height 149.86 cm Mirella Mccracken [facility] Medicine Work Phone: 02-28-2013 09:53-0400 Pulse (Heart Rate) 60 /min Mirella Mccracken [facility] Internal Medicine Work Phone: Comment on above: Pattern: Regular 02-28-2013 09:53-0400 Respiratory Rate 18 /min Mirella Mccracken [facility] Medicine Work Phone: Comment on above: Pattern: Unlabored 02-28-2013 09:53-0400 Weight 73.14 kg Mirella Mccracken [facility] Medicine Work Phone: 11-15-2012 14:01-0500 BMI (Body Mass Index) 32.57 kg/m2 Mirella Sol[facility] Medicine Work Phone: 11-15-2012 14:01-0500 Body Temperature 97.9 [degF] Mirella Mccracken [facility] Internal Medicine Work Phone: Comment on above: Method: Oral 11-15-2012 14:01-0500 Body weight 73.14 kg Mirella Mccracken [facility] Medicine Work Phone: 11-15-2012 14:01-0500 BP Diastolic 78 mm[Hg] Mirella Mccracken [facility] Medicine Work Phone: Comment on above: Patient Position: Sitting; Cuff Location : Left Arm; Cuff Size: Large 11-15-2012 14:01-0500 BP Systolic 122 mm[Hg] Mirella Mccracken [facility] Medicine Work Phone: Comment on above: Patient Position: Sitting; Cuff Location : Left Arm; Cuff Size: Large 11-15-2012 14:0500 BSA (Body Surface Area) 1.68 m2 Mirella Mccracken [facility] Internal Medicine Work Phone: 11-15-2012 14:01-0500 Height 149.86 cm Mirella Mccracken [facility] Medicine Work Phone: 11-15-2012 14:01-0500 Pulse (Heart Rate) 72 /min Mirella Mccracken [facility] Internal Medicine Work Phone: Comment on above: Pattern: Regular 11-15-2012 14:01-0500 Respiratory Rate 20 /min Mirella Mccracken [facility] Medicine Work Phone: Comment on above: Pattern: Unlabored 11-15-2012 14:01-0500 Weight 73.14 kg Mirella Mccracken [facility] Medicine Work Phone: 10-25-2012 11:26-0500 BMI (Body Mass Index) 32.74 kg/m2 Mirella Mccracken [facility] Internal Medicine Work Phone: 10-25-2012 11:26-0500 Body Temperature 98.3 [degF] Mirella Mccracken [facility] Internal Medicine Work Phone: Comment on above: Method: Oral 10-25-2012 11:26-0500 Body weight 73.54 kg Mirella Mccracken [facility] Medicine Work Phone: 10-25-2012 11:26-0500 BP Diastolic 62 mm[Hg] Mirella Mccracken [facility] Medicine Work Phone: Comment on above: Patient Position: Sitting; Cuff Location : Right Arm; Cuff Size: Large 10-25-2012 11:26-0500 BP Systolic 144 mm[Hg] Mirella Mccracken [facility] Medicine Work Phone: Comment on above: Patient Position: Sitting; Cuff Location : Right Arm; Cuff Size: Large 10-25-2012 11:26-0500 BSA (Body Surface Area) 1.69 m2 Mirella Mccracken [facility] Internal Medicine Work Phone: 10-25-2012 11:26-0500 Height 149.86 cm Mirella Mccracken [facility] Medicine Work Phone: 10-25-2012 11:26-0500 Pulse (Heart Rate) 72 /min Mirella Mccracken [facility] Medicine Work Phone: Comment on above: Pattern: Regular 10-25-2012 11:26-0500 Respiratory Rate 20 /min Mirella Mccracken [facility] Medicine Work Phone: Comment on above: Pattern: Unlabored 10-25-2012 11:26-0500 Weight 73.54 kg Mirella Mccracken [facility] Medicine Work Phone: 10-21-2012 09:46-0500 BMI (Body Mass Index) 32.74 kg/m2 Mirella Mccracken [facility] Internal Medicine Work Phone: 10-21-2012 09:46-0500 Body Temperature 97.6 [degF] Mirella Mccracken [facility] Medicine Work Phone: Comment on above: Method: Oral 10-21-2012 09:46-0500 Body weight 73.54 kg Mirella Mccracken [facility] Medicine Work Phone: 10-21-2012 09:46-0500 BP Diastolic 62 mm[Hg] Mirella Mccracken [facility] Medicine Work Phone: Comment on above: Patient Position: Sitting; Cuff Location : Left Arm; Cuff Size: Large 10-21-2012 09:46-0500 BP Systolic 120 mm[Hg] Mirella Mccracken [facility] Medicine Work Phone: Comment on above: Patient Position: Sitting; Cuff Location : Left Arm; Cuff Size: Large 10-21-2012 09:46-0500 BSA (Body Surface Area) 1.69 m2 Mirella Mccracken [facility] Medicine Work Phone: 10-21-2012 09:46-0500 Height 149.86 cm Mirella Mccracken [facility] Medicine Work Phone: 10-21-2012 09:46-0500 Pulse (Heart Rate) 64 /min Mirella Mccracken [facility] Medicine Work Phone: Comment on above: Pattern: Regular 10-21-2012 09:46-0500 Respiratory Rate 20 /min Mirella Mccracken [facility] Medicine Work Phone: Comment on above: Pattern: Unlabored 10-21-2012 09:46-0500 Weight 73.54 kg Mirella Mccracken [facility] Medicine Work Phone: 09-30-2012 09:48-0500 BMI (Body Mass Index) 32.74 kg/m2 Mirella Mccracken [facility] Internal Medicine Work Phone: 09-30-2012 09:48-0500 Body Temperature 98.2 [degF] Mirella Mccracken [facility] Medicine Work Phone: Comment on above: Method: Oral 09-30-2012 09:48-0500 Body weight 73.54 kg Mirella Mccracken [facility] Medicine Work Phone: 09-30-2012 09:48-0500 BP Diastolic 76 mm[Hg] Mirella Mccracken [facility] Medicine Work Phone: Comment on above: Patient Position: Sitting; Cuff Location : Left Arm; Cuff Size: Standard 09-30-2012 09:48-0500 BP Systolic 122 mm[Hg] Mirella Mccracken [facility] Medicine Work Phone: Comment on above: Patient Position: Sitting; Cuff Location : Left Arm; Cuff Size: Standard 09-30-2012 09:48-0500 BSA (Body Surface Area) 1.69 m2 Mirella Mccracken [facility] Medicine Work Phone: 09-30-2012 09:48-0500 Height 149.86 cm Mirella Mccracken [facility] Medicine Work Phone: 09-30-2012 09:48-0500 Pulse (Heart Rate) 58 /min Mirella Mccracken [facility] Medicine Work Phone: Comment on above: Pattern: Regular 09-30-2012 09:48-0500 Pulse Oximetry 98 % Mirella Mccracken [facility] Medicine Work Phone: Comment on above: Room air 09-30-2012 09:48-0500 Respiratory Rate 16 /min Mirella Mccracken [facility] Medicine Work Phone: Comment on above: Pattern: Unlabored 09-30-2012 09:48-0500 Weight 73.54 kg Mirella Mccracken [facility] Medicine Work Phone: 09-16-2012 09:47-0500 BMI (Body Mass Index) 32.74 kg/m2 Mirella Mccracken [facility] Internal Medicine Work Phone: 09-16-2012 09:47-0500 Body Temperature 97 [degF] Mirella Mccracken [facility] Medicine Work Phone: Comment on above: Method: Oral 09-16-2012 09:47-0500 Body weight 73.54 kg Mirella Mccracken [facility] Medicine Work Phone: 09-16-2012 09:47-0500 BP Diastolic 76 mm[Hg] Mirella Mccracken [facility] Medicine Work Phone: Comment on above: Patient Position: Sitting; Cuff Location : Left Arm; Cuff Size: Large 09-16-2012 09:47-0500 BP Systolic 128 mm[Hg] Mirella Mccracken [facility] Medicine Work Phone: Comment on above: Patient Position: Sitting; Cuff Location : Left Arm; Cuff Size: Large 09-16-2012 09:47-0500 BSA (Body Surface Area) 1.69 m2 Mirella Mccracken [facility] Medicine Work Phone: 09-16-2012 09:47-0500 Height 149.86 cm Mirella Mccracken [facility] Medicine Work Phone: 09-16-2012 09:47-0500 Pulse (Heart Rate) 72 /min Mirella Mccracken [facility] Medicine Work Phone: Comment on above: Pattern: Regular 09-16-2012 09:47-0500 Respiratory Rate 18 /min Mirella Mccracken [facility] Medicine Work Phone: Comment on above: Pattern: Unlabored 09-16-2012 09:47-0500 Weight 73.54 kg Mirella Mccracken [facility] Medicine Work Phone: 05-27-2012 09:32-0400 Body Temperature 96.9 [degF] Hung Davison [facility] Work Phone: 03-11-2012 13:42-0400 BMI (Body Mass Index) 28.88 kg/m2 Mirella Mccracken [facility] Internal Medicine Work Phone: 03-11-2012 13:42-0400 Body Temperature 97.8 [degF] Mirella Mccracken [facility] Medicine Work Phone: 03-11-2012 13:42-0400 Body weight 64.86 kg Mirella Mccracken [facility] Work Phone: 03-11-2012 13:42-0400 BP Diastolic 70 mm[Hg] Mirella Mccracken [facility] Work Phone: Comment on above: Patient Position: Sitting; Cuff Location : Left Arm; Cuff Size: Large 03-11-2012 13:42-0400 BP Systolic 124 mm[Hg] Mirella Mccracken [facility] Medicine Work Phone: Comment on above: Patient Position: Sitting; Cuff Location : Left Arm; Cuff Size: Large 03-11-2012 13:42-0400 BSA (Body Surface Area) 1.6 m2 Mirella Mccracken [facility] Work Phone: 03-11-2012 13:42-0400 Height 149.86 cm Mirella Mccracken [facility] Work Phone: 03-11-2012 13:42-0400 Pulse (Heart Rate) 56 /min Mirella Mccracken [facility] Work Phone: Comment on above: Pattern: Regular 03-11-2012 13:42-0400 Respiratory Rate 18 /min Mirella Mccracken [facility] Work Phone: Comment on above: Pattern: Unlabored 03-11-2012 13:42-0400 Weight 64.86 kg Mirella Mccracken [facility] Work Phone: 03-04-2012 12:12-0400 BMI (Body Mass Index) 28.96 kg/m2 Mirella Mccracken [facility] Medicine Work Phone: 03-04-2012 12:12-0400 Body weight 65.03 kg Mirella Mccracken [facility] Work Phone: 03-04-2012 12:12-0400 BP Diastolic 62 mm[Hg] Mirella Mccracken [facility] Work Phone: Comment on above: Patient Position: Sitting; Cuff Location : Left Arm; Cuff Size: Large 03-04-2012 12:12-0400 BP Systolic 122 mm[Hg] Mirella Mccracken [facility] Work Phone: Comment on above: Patient Position: Sitting; Cuff Location : Left Arm; Cuff Size: Large 03-04-2012 12:12-0400 BSA (Body Surface Area) 1.6 m2 Mirella Mccracken [facility] Work Phone: 03-04-2012 12:12-0400 Height 149.86 cm Mirella Mccracken [facility] Work Phone: 03-04-2012 12:12-0400 Pulse (Heart Rate) 60 /min Mirella Mccracken [facility] Work Phone: Comment on above: Pattern: Regular 03-04-2012 12:12-0400 Respiratory Rate 20 /min Mirella Mccracken [facility] Work Phone: Comment on above: Pattern: Unlabored 03-04-2012 12:12-0400 Weight 65.03 kg Mirella Mccracken [facility] Work Phone: 02-25-2012 13:29-0400 BMI (Body Mass Index) 28.96 kg/m2 Mirella Mccracken [facility] Work Phone: 02-25-2012 13:29-0400 Body weight 65.03 kg Mirella Mccracken [facility] Work Phone: 02-25-2012 13:29-0400 BP Diastolic 76 mm[Hg] Mirella Mccracken [facility] Work Phone: Comment on above: Patient Position: Sitting; Cuff Location : Left Arm; Cuff Size: Standard 02-25-2012 13:290400 BP Systolic 120 mm[Hg] Mirella Mccracken [facility] Work Phone: Comment on above: Patient Position: Sitting; Cuff Location : Left Arm; Cuff Size: Standard 02-25-2012 13:29-0400 BSA (Body Surface Area) 1.6 m2 Mirella Mccracken [facility] Internal Medicine Work Phone: 02-25-2012 13:29-0400 Height 149.86 cm Mirella Mccracken [facility] Work Phone: 02-25-2012 13:29-0400 Pulse (Heart Rate) 68 /min Mirella Mccracken [facility] Internal [facility] Work Phone: Comment on above: Pattern: Regular 02-25-2012 13:29-0400 Respiratory Rate 20 /min Mirella Mccracken [facility] Internal [facility] Work Phone: Comment on above: Pattern: Unlabored 02-25-2012 13:29-0400 Weight 65.03 kg Mirella Mccracken [facility] Internal [facility] Work Phone: 01-30-2012 08:19-0400 BMI (Body Mass Index) 28.96 kg/m2 [facility] Work Phone: 01-30-2012 08:19-0400 Body weight 65.03 kg Mirella Mccracken [facility] Internal [facility] Work Phone: 01-30-2012 08:19-0400 BP Diastolic 70 mm[Hg] Mirella Mccracken [facility] Internal Medicine Work Phone: Comment on above: Patient Position: Sitting; Cuff Location : Left Arm; Cuff Size: Large 01-30-2012 08:19-0400 BP Systolic 120 mm[Hg] Mirella Mccracken [facility] Internal Medicine Work Phone: Comment on above: Patient Position: Sitting; Cuff Location : Left Arm; Cuff Size: Large 01-30-2012 08:19-0400 BSA (Body Surface Area) 1.6 m2 Mirella Mccracken [facility] Internal Medicine Work Phone: 01-30-2012 08:19-0400 Height 149.86 cm Mirella Mccracken [facility] Internal Medicine Work Phone: 01-30-2012 08:19-0400 Pulse (Heart Rate) 60 /min Mirella Mccracken [facility] Internal Medicine Work Phone: Comment on above: Pattern: Regular 01-30-2012 08:19-0400 Respiratory Rate 18 /min Mirella Mccracken [facility] Internal Medicine Work Phone: Comment on above: Pattern: Unlabored 01-30-2012 08:19-0400 Weight 65.03 kg Mirella Mccracken [facility] Internal Medicine Work Phone: 01-15-2012 12:06-0400 BMI (Body Mass Index) 28.96 kg/m2 Mirella Mccracken [facility] Internal Medicine Work Phone: Comment on above: vison with correction ou=20/50 os=20/50 od=20/50hearing [facility] 01-15-2012 12:06-0400 Body Temperature 97 [degF] Mirella Mccracken [facility] Internal Medicine Work Phone: Comment on above: Method: Oral vison with correctio n ou=20/50 os=20/50 od=20/50hearing [facility] 01-15-2012 12:06-0400 Body weight 65.03 kg Mirella Mccracken [facility] Internal Medicine Work Phone: Comment on above: vison with correction ou=20/50 os=20/50 od=20/50hearing [facility] 01-15-2012 12:06-0400 BP Diastolic 60 mm[Hg] [facility] Internal Medicine Work Phone: Comment on above: Patient Position: Sitting; Cuff Location : Left Arm; Cuff Size: Large vison with correctio n ou=20/50 os=20/50 od=20/50hearing [facility] 01-15-2012 12:06-0400 BP Systolic 118 mm[Hg] [facility] Internal Medicine Work Phone: Comment on above: Patient Position: Sitting; Cuff Location : Left Arm; Cuff Size: Large vison with correctio n ou=20/50 os=20/50 od=20/50hearing [facility] 01-15-2012 12:06-0400 BSA (Body Surface Area) 1.6 m2 [facility] Internal Medicine Work Phone: Comment on above: vison with correction ou=20/50 os=20/50 od=20/50hearing [facility] 01-15-2012 12:06-0400 Height 149.86 cm [facility] Internal Medicine Work Phone: Comment on above: vison with correction ou=20/50 os=20/50 od=20/50hearing [facility] 01-15-2012 12:06-0400 Pulse (Heart Rate) 68 /min [facility] Internal Medicine Work Phone: Comment on above: Pattern: Regular vison with correctio n ou=20/50 os=20/50 od=20/50hearing [facility] 01-15-2012 12:06-0400 Respiratory Rate 20 /min [facility] Internal Medicine Work Phone: Comment on above: Pattern: Unlabored vison with correctio n ou=20/50 os=20/50 od=20/50hearing [facility] 01-15-2012 12:06-0400 Weight 65.03 kg [facility] Internal Medicine Work Phone: Comment on above: vison with correction ou=20/50 os=20/50 od=20/50hearing [facility] 12-31-2011 15:05-0400 BMI (Body Mass Index) 28.88 kg/m2 Mirella Mccracken [facility] Internal Medicine Work Phone: 12-31-2011 15:05-0400 Body weight 64.86 kg Mirella Mccracken [facility] Internal Medicine Work Phone: 12-31-2011 15:05-0400 BP Diastolic 78 mm[Hg] Mirella Mccracken [facility] Internal Medicine Work Phone: Comment on above: Patient Position: Sitting; Cuff Location : Left Arm; Cuff Size: Large 12-31-2011 15:05-0400 BP Systolic 122 mm[Hg] Mirella Mccracken [facility] Internal Medicine Work Phone: Comment on above: Patient Position: Sitting; Cuff Location : Left Arm; Cuff Size: Large 12-31-2011 15:05-0400 BSA (Body Surface Area) 1.6 m2 Mirella Mccracken [facility] Internal Medicine Work Phone: 12-31-2011 15:05-0400 Height 149.86 cm [facility]: 12-31-2011 15:05-0400 Pulse (Heart Rate) 60 /min Mirella Mccracken [facility] Internal Medicine Work Phone: Comment on above: Pattern: Regular 12-31-2011 15:05-0400 Respiratory Rate 18 /min Mirella Mccracken [facility] Internal Medicine Work Phone: Comment on above: Pattern: Unlabored 12-31-2011 15:05-0400 Weight 64.86 kg Mirella Mccracken [facility] Internal Medicine Work Phone: 12-26-2011 14:17-0400 BP Diastolic 62 mm[Hg] [facility] Work [facility]: Comment on above: Patient Position: Sitting; Cuff Location : Left Arm; Cuff Size: Standard 12-26-2011 14:17-0400 BP Systolic 122 mm[Hg] [facility] Work [facility]: Comment on above: Patient Position: Sitting; Cuff Location : Left Arm; Cuff Size: Standard 12-26-2011 14:17-0400 Pulse (Heart Rate) 58 /min Mirella Mccracken [facility] Internal Medicine Work Phone: Comment on above: Pattern: Regular 12-26-2011 14:17-0400 Pulse Oximetry 98 % Mirella Mccracken [facility] Internal Medicine Work Phone: Comment on above: Room air 12-26-2011 13:59-0400 Pulse (Heart Rate) 48 /min Mirella Mccracken [facility] Internal Medicine Work Phone: Comment on above: Pattern: Regular 12-26-2011 13:59-0400 Pulse Oximetry 95 % Mirella Mccracken [facility] Internal [facility] Work Phone: Comment on above: Room air 12-26-2011 13:13-0400 BMI (Body Mass Index) 29.49 kg/m2 Mirella Mccracken [facility] Internal Medicine Work Phone: 12-26-2011 13:13-0400 Body Temperature 97.8 [degF] Mirella Mccracken [facility] Internal Medicine Work Phone: Comment on above: Method: Oral 12-26-2011 13:13-0400 Body weight 66.23 kg Mirella Mccracken [facility] Internal [facility] Work Phone: 12-26-2011 13:13-0400 BP Diastolic 68 mm[Hg] Mirella Mccracken [facility] Internal Medicine Work Phone: Comment on above: Patient Position: Sitting; Cuff Location : Left Arm; Cuff Size: Standard 12-26-2011 13:13-0400 BP Systolic 114 mm[Hg] Mirella Mccracken [facility] Internal [facility] Work Phone: Comment on above: Patient Position: Sitting; Cuff Location : Left Arm; Cuff Size: Standard 12-26-2011 13:13-0400 BSA (Body Surface Area) 1.61 m2 Mirella Mccracken [facility] Internal Medicine Work Phone: 12-26-2011 13:13-0400 Height 149.86 cm Mirella Mccracken [facility] Work Phone: 12-26-2011 13:13-0400 Pulse (Heart Rate) 54 /min Mirella Mccracken [facility] Internal [facility] Work Phone: Comment on above: Pattern: Regular 12-26-2011 13:13-0400 Pulse Oximetry 98 % Mirella Mccracken [facility] Internal Medicine Work Phone: Comment on above: Room air 12-26-2011 13:13-0400 Respiratory Rate 20 /min Mirella Mccracken [facility] Internal [facility] Work Phone: Comment on above: Pattern: Unlabored 12-26-2011 13:13-0400 Weight 66.23 kg Mirella Mccracken [facility] Internal [facility] Work Phone: 12-24-2011 14:07-0400 BMI (Body Mass Index) 29.5 kg/m2 Mirella Mccracken [facility] Internal Medicine Work Phone: 12-24-2011 14:07-0400 Body weight 66.25 kg Mirella Mccracken [facility] Internal [facility] Work Phone: 12-24-2011 14:07-0400 BP Diastolic 60 mm[Hg] Mirella Mccracken [facility] Internal [facility] Work Phone: Comment on above: Patient Position: Sitting; Cuff Location : Left Arm; Cuff Size: Large 12-24-2011 14:07-0400 BP Systolic 124 mm[Hg] Mirella Mccracken [facility] Internal Medicine Work Phone: Comment on above: Patient Position: Sitting; Cuff Location : Left Arm; Cuff Size: Large 12-24-2011 14:07-0400 BSA (Body Surface Area) 1.61 m2 Mirella Mccracken [facility] Internal Medicine Work Phone: 12-24-2011 14:07-0400 Height 149.86 cm Mirella Mccracken [facility] Internal [facility] Work Phone: 12-24-2011 14:07-0400 Pulse (Heart Rate) 60 /min Mirella Mccracken [facility] Internal Medicine Work Phone: Comment on above: Pattern: Regular 12-24-2011 14:07-0400 Respiratory Rate 18 /min Mirella Mccracken [facility] Internal [facility] Work Phone: Comment on above: Pattern: Unlabored 12-24-2011 14:07-0400 Weight 66.25 kg Mirella Mccracken [facility] Internal [facility] Work Phone: 12-15-2011 09:30-0400 BMI (Body Mass Index) 29.31 kg/m2 Mirella Mccracken [facility] Internal Medicine Work Phone: 12-15-2011 09:30-0400 Body Temperature 97.9 [degF] Mirella Mccracken [facility] Internal Medicine Work Phone: Comment on above: Method: Oral 12-15-2011 09:30-0400 Body weight 65.83 kg Mirella Mccracken [facility] Internal [facility] Work Phone: 12-15-2011 09:30-0400 BP Diastolic 60 mm[Hg] Mirella Mccracken [facility] Internal Medicine Work Phone: Comment on above: Patient Position: Sitting; Cuff Location : Left Arm; Cuff Size: Large 12-15-2011 09:30-0400 BP Systolic 104 mm[Hg] Mirella Mccracken [facility] Internal [facility] Work Phone: Comment on above: Patient Position: Sitting; Cuff Location : Left Arm; Cuff Size: Large 12-15-2011 09:30-0400 BSA (Body Surface Area) 1.61 m2 Mirella Mccracken [facility] Internal Medicine Work Phone: 12-15-2011 09:30-0400 Height 149.86 cm Mirella Mccracken [facility] Internal [facility] Work Phone: 12-15-2011 09:30-0400 Pulse (Heart Rate) 60 /min Mirella Mccracken [facility] Internal [facility] Work Phone: Comment on above: Pattern: Regular 12-15-2011 09:30-0400 Respiratory Rate 18 /min Mirella Mccracken [facility] Internal [facility] Work Phone: Comment on above: Pattern: Unlabored 12-15-2011 09:30-0400 Weight 65.83 kg Mirella Mccracken [facility] Internal [facility] Work Phone: 11-26-2011 11:36-0400 BMI (Body Mass Index) 29.69 kg/m2 Mirella Sol[facility] Internal Medicine Work Phone: 11-26-2011 11:36-0400 Body Temperature 95.6 [degF] Mirella Mccracken [facility] Internal [facility] Work Phone: Comment on above: Method: Oral 11-26-2011 11:36-0400 Body weight 66.68 kg Mirella Mccracken [facility] Internal [facility] Work Phone: 11-26-2011 11:36-0400 BP Diastolic 62 mm[Hg] Mirella Mccracken [facility] Work Phone: Comment on above: Patient Position: Sitting; Cuff Location : Left Arm; Cuff Size: Large 11-26-2011 11:36-0400 BP Systolic 118 mm[Hg] Mirella Mccracken [facility] Internal [facility] Work Phone: Comment on above: Patient Position: Sitting; Cuff Location : Left Arm; Cuff Size: Large 11-26-2011 11:36-0400 BSA (Body Surface Area) 1.62 m2 Mirella Mccracken [facility] Internal [facility] Work Phone: 11-26-2011 11:36-0400 Height 149.86 cm Mirella Mccracken [facility] Internal [facility] Work Phone: 11-26-2011 11:36-0400 Pulse (Heart Rate) 64 /min Mirella Mccracken [facility] Internal [facility] Work Phone: Comment on above: Pattern: Regular 11-26-2011 11:36-0400 Respiratory Rate 20 /min Mirella Mccracken [facility] Internal [facility] Work Phone: Comment on above: Pattern: Unlabored 11-26-2011 11:36-0400 Weight 66.68 kg Mirella Mccracken [facility] Internal [facility] Work Phone: 11-12-2011 12:55-0500 BMI (Body Mass Index) 30.51 kg/m2 Mirella Solano [facility] Internal Medicine Work Phone: 11-12-2011 12:55-0500 Body weight 68.52 kg Mirella Mccracken [facility] Work Phone: 11-12-2011 12:55-0500 BP Diastolic 60 mm[Hg] Mirella Mccracken [facility] Work Phone: Comment on above: Patient Position: Sitting; Cuff Location : Left Arm; Cuff Size: Large 11-12-2011 12:55-0500 BP Systolic 112 mm[Hg] Mirella Mccracken [facility] Internal [facility] Work Phone: Comment on above: Patient Position: Sitting; Cuff Location : Left Arm; Cuff Size: Large 11-12-2011 12:55-0500 BSA (Body Surface Area) 1.64 m2 Mirella Mccracken [facility] Internal [facility] Work Phone: 11-12-2011 12:55-0500 Height 149.86 cm Mirella Mccracken [facility] Work Phone: 11-12-2011 12:55-0500 Pulse (Heart Rate) 68 /min Mirella Mccracken [facility] Internal [facility] Work Phone: Comment on above: Pattern: Regular 11-12-2011 12:55-0500 Respiratory Rate 20 /min Mirella Mccracken [facility] Work Phone: Comment on above: Pattern: Unlabored 11-12-2011 12:55-0500 Weight 68.52 kg Mirella Mccracken [facility] Internal [facility] Work Phone: 11-06-2011 12:18-0500 BMI (Body Mass Index) 30.09 kg/m2 Mirella Mccracken [facility] Internal Medicine Work Phone: 11-06-2011 12:18-0500 Body Temperature 98.1 [degF] Mirella Mccracken [facility] Internal [facility] Work Phone: Comment on above: Method: Oral 11-06-2011 12:18-0500 Body weight 67.59 kg Mirella Mccracken [facility] Internal [facility] Work Phone: 11-06-2011 12:18-0500 BP Diastolic 70 mm[Hg] Mirella Mccracken [facility] Internal [facility] Work Phone: Comment on above: Patient Position: Sitting; Cuff Location : Left Arm; Cuff Size: Large 11-06-2011 12:18-0500 BP Systolic 134 mm[Hg] Mirella Mccracken [facility] Internal [facility] Work Phone: Comment on above: Patient Position: Sitting; Cuff Location : Left Arm; Cuff Size: Large 11-06-2011 12:18-0500 BSA (Body Surface Area) 1.63 m2 Mirella Mccracken [facility] Internal [facility] Work Phone: 11-06-2011 12:18-0500 Height 149.86 cm Mirella Mccracken [facility] Work Phone: 11-06-2011 12:18-0500 Pulse (Heart Rate) 68 /min Mirella Mccracken [facility] Internal [facility] Work Phone: Comment on above: Pattern: Regular 11-06-2011 12:18-0500 Respiratory Rate 20 /min Mirella Mccracken [facility] Work Phone: Comment on above: Pattern: Unlabored 11-06-2011 12:18-0500 Weight 67.59 kg Mirella Mccracken [facility] Internal [facility] Work Phone: 10-21-2011 13:27-0500 Body Temperature 97.9 [degF] Mirella Mccracken [facility] Internal [facility] Work Phone: 10-21-2011 13:27-0500 Body weight 67.54 kg Mirella Mccracken [facility] Work Phone: 10-21-2011 13:27-0500 BP Diastolic 92 mm[Hg] Mirella Mccracken [facility] Internal [facility] Work Phone: Comment on above: Patient Position: Sitting; Cuff Location : Left Arm; Cuff Size: Standard 10-21-2011 13:27-0500 BP Systolic 152 mm[Hg] Mirella Mccracken [facility] Internal [facility] Work Phone: Comment on above: Patient Position: Sitting; Cuff Location : Left Arm; Cuff Size: Standard 10-21-2011 13:27-0500 Pulse (Heart Rate) 99 /min Mirella Mccracken [facility] Internal [facility] Work Phone: Comment on above: Pattern: Regular 10-21-2011 13:27-0500 Pulse Oximetry 92 % Mirella Mccracken [facility] Internal [facility] Work Phone: Comment on above: Room air 10-21-2011 13:27-0500 Respiratory Rate 17 /min Mirella Mccracken [facility] Internal [facility] Work Phone: Comment on above: Pattern: Unlabored 10-21-2011 13:27-0500 Weight 67.54 kg Mirella Mccracken [facility] Internal [facility] Work Phone: 06-05-2011 09:34-0400 BMI (Body Mass Index) 30.14 kg/m2 Mirella Mccracken [facility] Internal Medicine Work Phone: 06-05-2011 09:34-0400 Body Temperature 98.5 [degF] Mirella Mccracken [facility] Internal Medicine Work Phone: Comment on above: Method: Oral 06-05-2011 09:34-0400 Body weight 67.7 kg Mirella Mccracken [facility] Internal [facility] Work Phone: 06-05-2011 09:34-0400 BP Diastolic 78 mm[Hg] Mirella Mccracken [facility] Internal [facility] Work Phone: Comment on above: Patient Position: Sitting; Cuff Location : Left Arm; Cuff Size: Large 06-05-2011 09:34-0400 BP Systolic 142 mm[Hg] Mirella Mccracken [facility] Internal [facility] Work Phone: Comment on above: Patient Position: Sitting; Cuff Location : Left Arm; Cuff Size: Large 06-05-2011 09:34-0400 BSA (Body Surface Area) 1.63 m2 Mirella Mccracken [facility] Internal [facility] Work Phone: 06-05-2011 09:34-0400 Height 149.86 cm Mirella Mccracken [facility] Internal [facility] Work Phone: 06-05-2011 09:34-0400 Pulse (Heart Rate) 76 /min Mirella Mccracken [facility] Internal [facility] Work Phone: Comment on above: Pattern: Regular 06-05-2011 09:34-0400 Respiratory Rate 20 /min Mirella Mccracken [facility] Internal [facility] Work Phone: Comment on above: Pattern: Unlabored 06-05-2011 09:34-0400 Weight 67.7 kg Mirella Mccracken [facility] Work Phone: 05-08-2011 08:10-0400 BMI (Body Mass Index) 28.19 kg/m2 Mirella Mccracken [facility] Internal Medicine Work Phone: 05-08-2011 08:10-0400 Body Temperature 98.7 [degF] Mirella Mccracken [facility] Work Phone: Comment on above: Method: Oral 05-08-2011 08:10-0400 Body weight 63.31 kg Mirella Mccracken [facility] Work Phone: 05-08-2011 08:10-0400 BP Diastolic 78 mm[Hg] Mirella Mccracken [facility] Work Phone: Comment on above: Patient Position: Sitting; Cuff Location : Left Arm; Cuff Size: Standard 05-08-2011 08:10-0400 BP Systolic 142 mm[Hg] Mirella Mccracken [facility] Work Phone: Comment on above: Patient Position: Sitting; Cuff Location : Left Arm; Cuff Size: Standard 05-08-2011 08:10-0400 BSA (Body Surface Area) 1.58 m2 Mirella Mccracken [facility] Work Phone: 05-08-2011 08:10-0400 Height 149.86 cm Mirella Mccracken [facility] Work Phone: 05-08-2011 08:10-0400 Pulse (Heart Rate) 84 /min Mirella Mccracken [facility] Work Phone: Comment on above: Pattern: Regular 05-08-2011 08:10-0400 Respiratory Rate 17 /min Mirella Mccracken [facility] Work Phone: 05-08-2011 08:10-0400 Weight 63.31 kg Mirella Mccracken [facility] Work Phone: 05-07-2011 08:42-0400 BMI (Body Mass Index) 28.19 kg/m2 Mirella Mccracken [facility] Internal Medicine Work Phone: 05-07-2011 08:42-0400 Body Temperature 98 [degF] Mirella Mccracken [facility] Work Phone: Comment on above: Method: Oral 05-07-2011 08:42-0400 Body weight 63.31 kg Mirella Mccracken [facility] Work Phone: 05-07-2011 08:42-0400 BP Diastolic 72 mm[Hg] Mirella Mccracken [facility] Work Phone: Comment on above: Patient Position: Sitting; Cuff Location : Left Arm; Cuff Size: Standard 05-07-2011 08:42-0400 BP Systolic 132 mm[Hg] Mirella Mccracken [facility] Work Phone: Comment on above: Patient Position: Sitting; Cuff Location : Left Arm; Cuff Size: Standard 05-07-2011 08:42-0400 BSA (Body Surface Area) 1.58 m2 Mirella Mccracken [facility] Work Phone: 05-07-2011 08:42-0400 Height 149.86 cm Mirella Mccracken [facility] Work Phone: 05-07-2011 08:42-0400 Pulse (Heart Rate) 82 /min Mirella Mccracken [facility] Work Phone: Comment on above: Pattern: Regular 05-07-2011 08:42-0400 Respiratory Rate 18 /min Mirella Mccracken [facility] Work Phone: Comment on above: Pattern: Unlabored 05-07-2011 08:42-0400 Weight 63.31 kg Mirella Mccracken [facility] Work Phone: 05-06-2011 16:25-0400 BP Diastolic 82 mm[Hg] Mirella Mccracken [facility] Work Phone: Comment on above: Patient Position: Supine; Cuff Location: Right Arm; Cuff Size: Standard 05-06-2011 16:25-0400 BP Systolic 146 mm[Hg] Mirella Mccracken [facility] Work Phone: Comment on above: Patient Position: Supine; Cuff Location: Right Arm; Cuff Size: Standard 05-06-2011 16:25-0400 Pulse (Heart Rate) 76 /min Mirella Mccracken [facility] Work Phone: Comment on above: Pattern: Regular 11-06-2010 12:10-0500 BMI (Body Mass Index) 28.19 kg/m2 Mirella Mccracken [facility] Internal Medicine Work Phone: 11-06-2010 12:10-0500 Body Temperature 97.3 [degF] Mirella Mccracken [facility] Work Phone: Comment on above: Method: Oral 11-06-2010 12:10-0500 Body weight 63.31 kg Mirella Mccracken [facility] Work Phone: 11-06-2010 12:10-0500 BP Diastolic 82 mm[Hg] Mirella Mccracken [facility] Work Phone: Comment on above: Patient Position: Sitting; Cuff Location : Left Arm; Cuff Size: Standard 11-06-2010 12:10-0500 BP Systolic 144 mm[Hg] Mirella Mccracken [facility] Work Phone: Comment on above: Patient Position: Sitting; Cuff Location : Left Arm; Cuff Size: Standard 11-06-2010 12:10-0500 BSA (Body Surface Area) 1.58 m2 Mirella Mccracken [facility] Work Phone: 11-06-2010 12:10-0500 Height 149.86 cm Mirella Mccracken [facility] Work Phone: 11-06-2010 12:10-0500 Pulse (Heart Rate) 76 /min Mirella Mccracken [facility] Work Phone: Comment on above: Pattern: Regular 11-06-2010 12:10-0500 Respiratory Rate 18 /min Mirella Mccracken [facility] Work Phone: Comment on above: Pattern: Unlabored 11-06-2010 12:10-0500 Weight 63.31 kg Mirella Mccracken [facility] Work Phone: 11-04-2010 09:00-0500 BMI (Body Mass Index) 28.19 kg/m2 Mirella Solano [facility] Internal Medicine Work Phone: 11-04-2010 09:00-0500 Body weight 63.31 kg Mirella Mccracken [facility] Work Phone: 11-04-2010 09:00-0500 BP Diastolic 72 mm[Hg] Mirella Mccracken [facility] Work Phone: Comment on above: Patient Position: Sitting; Cuff Location : Left Arm; Cuff Size: Standard 11-04-2010 09:00-0500 BP Systolic 122 mm[Hg] Mirella Mccracken [facility] Work Phone: Comment on above: Patient Position: Sitting; Cuff Location : Left Arm; Cuff Size: Standard 11-04-2010 09:00-0500 BSA (Body Surface Area) 1.58 m2 Mirella Mccracken [facility] Work Phone: 11-04-2010 09:00-0500 Height 149.86 cm Mirella Mccracken [facility] Work Phone: 11-04-2010 09:00-0500 Pulse (Heart Rate) 62 /min Mirella Mccracken [facility] Work Phone: Comment on above: Pattern: Regular 11-04-2010 09:00-0500 Respiratory Rate 16 /min Mirella Mccracken [facility] Work Phone: Comment on above: Pattern: Unlabored 11-04-2010 09:00-0500 Weight 63.31 kg Mirella Mccracken [facility] Work Phone: 10-14-2010 09:31-0500 BMI (Body Mass Index) 28.19 kg/m2 Mirella Solano [facility] Internal Medicine Work Phone: 10-14-2010 09:31-0500 Body weight 63.31 kg Mirella Mccracken [facility] Internal Medicine Work Phone: 10-14-2010 09:31-0500 BP Diastolic 70 mm[Hg] Mirella Mccracken [facility] Internal Medicine Work Phone: Comment on above: Patient Position: Sitting; Cuff Location : Left Arm; Cuff Size: Large 10-14-2010 09:31-0500 BP Systolic 132 mm[Hg] Mirella Mccracken [facility] Internal Medicine Work Phone: Comment on above: Patient Position: Sitting; Cuff Location : Left Arm; Cuff Size: Large 10-14-2010 09:31-0500 BSA (Body Surface Area) 1.58 m2 Mirella Mccracken [facility] Internal Medicine Work Phone: 10-14-2010 09:31-0500 Height 149.86 cm Mirella Mccracken [facility] Internal Medicine Work Phone: 10-14-2010 09:31-0500 Pulse (Heart Rate) 72 /min Mirella Mccracken [facility] Internal Medicine Work Phone: Comment on above: Pattern: Regular 10-14-2010 09:31-0500 Respiratory Rate 20 /min Mirella Mccracken [facility] Internal Medicine Work Phone: Comment on above: Pattern: Unlabored 10-14-2010 09:31-0500 Weight 63.31 kg Mirella Mccracken [facility] Internal Medicine Work Phone: 07-17-2010 08:52-0400 BMI (Body Mass Index) 29.73 kg/m2 Mirella Mccracken [facility] Internal Medicine Work Phone: 07-17-2010 08:52-0400 Body weight 66.76 kg Mirella Mccracken [facility] Internal Medicine Work Phone: 07-17-2010 08:52-0400 BP Diastolic 78 mm[Hg] Mirella Mccracken [facility] Internal Medicine Work Phone: Comment on above: Patient Position: Sitting; Cuff Location : Left Arm; Cuff Size: Large 07-17-2010 08:52-0400 BP Systolic 138 mm[Hg] Mirella Mccracken [facility] Internal Medicine Work Phone: Comment on above: Patient Position: Sitting; Cuff Location : Left Arm; Cuff Size: Large 07-17-2010 08:52-0400 BSA (Body Surface Area) 1.62 m2 Mirella Mccracken [facility] Internal Medicine Work Phone: 07-17-2010 08:52-0400 Height 149.86 cm Mirella Mccracken [facility] Internal Medicine Work Phone: 07-17-2010 08:52-0400 Pulse (Heart Rate) 60 /min Mirella Mccracken [facility] Internal Medicine Work Phone: Comment on above: Pattern: Regular 07-17-2010 08:52-0400 Respiratory Rate 20 /min Mirella Mccracken [facility] Internal Medicine Work Phone: Comment on above: Pattern: Unlabored 07-17-2010 08:52-0400 Weight 66.76 kg Mirella Mccracken [facility] Internal Medicine Work Phone: 06-17-2010 10:04-0400 BMI (Body Mass Index) 29.6 kg/m2 Mirella Mccracken [facility] Internal Medicine Work Phone: 06-17-2010 10:04-0400 Body weight 66.48 kg Mirella Mccracken [facility] Internal Medicine Work Phone: 06-17-2010 10:04-0400 BP Diastolic 70 mm[Hg] Mirella Mccracken [facility] Internal Medicine Work Phone: Comment on above: Patient Position: Sitting; Cuff Location : Left Arm; Cuff Size: Large 06-17-2010 10:04-0400 BP Systolic 122 mm[Hg] Mirella Mccracken [facility] Internal Medicine Work Phone: Comment on above: Patient Position: Sitting; Cuff Location : Left Arm; Cuff Size: Large 06-17-2010 10:04-0400 BSA (Body Surface Area) 1.62 m2 Mirella Mccracken [facility] Internal Medicine Work Phone: 06-17-2010 10:04-0400 Height 149.86 cm Mirella Mccracken [facility] Internal Medicine Work Phone: 06-17-2010 10:04-0400 Pulse (Heart Rate) 68 /min Mirella Mccracken [facility] Internal Medicine Work Phone: Comment on above: Pattern: Regular 06-17-2010 10:04-0400 Respiratory Rate 20 /min Mirella Mccracken [facility] Internal Medicine Work Phone: Comment on above: Pattern: Unlabored 06-17-2010 10:04-0400 Weight 66.48 kg Mirella Mccracken [facility] Internal Medicine Work Phone: 01-25-2010 13:25-0400 Body weight 66.91 kg Mirella Mccracken [facility] Internal Medicine Work Phone: 01-25-2010 13:25-0400 BP Diastolic 76 mm[Hg] Mirella Mccracken [facility] Internal Medicine Work Phone: Comment on above: Patient Position: Sitting; Cuff Location : Left Arm; Cuff Size: Standard 01-25-2010 13:25-0400 BP Systolic 132 mm[Hg] Mirella Mccracken [facility] Internal Medicine Work Phone: Comment on above: Patient Position: Sitting; Cuff Location : Left Arm; Cuff Size: Standard 01-25-2010 13:25-0400 Pulse (Heart Rate) 68 /min Mirella Mccracken [facility] Internal Medicine Work Phone: Comment on above: Pattern: Regular 01-25-2010 13:25-0400 Respiratory Rate 18 /min Mirella Mccracken [facility] Internal Medicine Work Phone: Comment on above: Pattern: Unlabored 01-25-2010 13:25-0400 Weight 66.91 kg Mirella Mccracken [facility] Internal Medicine Work Phone: 12-13-2009 11:12-0400 BMI (Body Mass Index) 29.32 kg/m2 Mirella Mccracken [facility] Internal Medicine Work Phone: 12-13-2009 11:12-0400 Body weight 65.86 kg Mirella Mccracken [facility] Internal Medicine Work Phone: 12-13-2009 11:12-0400 BP Diastolic 78 mm[Hg] Mirella Mccracken [facility] Internal Medicine Work Phone: Comment on above: Patient Position: Sitting; Cuff Location : Left Arm; Cuff Size: Large 12-13-2009 11:12-0400 BP Systolic 118 mm[Hg] Mirella Mccracken [facility] Internal Medicine Work Phone: Comment on above: Patient Position: Sitting; Cuff Location : Left Arm; Cuff Size: Large 12-13-2009 11:12-0400 BSA (Body Surface Area) 1.61 m2 Mirella Mccracken [facility] Internal Medicine Work Phone: 12-13-2009 11:12-0400 Height 149.86 cm Mirella Mccracken [facility] Internal Medicine Work Phone: 12-13-2009 11:12-0400 Pulse (Heart Rate) 64 /min Mirella Mccracken [facility] Internal Medicine Work Phone: Comment on above: Pattern: Regular 12-13-2009 11:12-0400 Respiratory Rate 20 /min Mirella Mccracken [facility] Internal Medicine Work Phone: Comment on above: Pattern: Unlabored 12-13-2009 11:12-0400 Weight 65.86 kg Mirella Mccracken [facility] Internal Medicine Work Phone: 10-03-2009 11:50-0500 BMI (Body Mass Index) 27.37 kg/m2 Mirella Mccracken [facility] Internal Medicine Work Phone: 10-03-2009 11:50-0500 Body weight 61.46 kg Mirella Mccracken [facility] Internal Medicine Work Phone: 10-03-2009 11:50-0500 BP Diastolic 78 mm[Hg] Mirella Mccracken [facility] Internal Medicine Work Phone: Comment on above: Patient Position: Sitting; Cuff Location : Left Arm; Cuff Size: Large 10-03-2009 11:50-0500 BP Systolic 120 mm[Hg] Mirella Mccracken [facility] Internal Medicine Work Phone: Comment on above: Patient Position: Sitting; Cuff Location : Left Arm; Cuff Size: Large 10-03-2009 11:50-0500 BSA (Body Surface Area) 1.56 m2 Mirella Mccracken [facility] Internal Medicine Work Phone: 10-03-2009 11:50-0500 Height 149.86 cm [facility] Work Phone: 10-03-2009 11:50-0500 Pulse (Heart Rate) 64 /min Mirella Mccracken [facility] Internal Medicine Work Phone: Comment on above: Pattern: Regular 10-03-2009 11:50-0500 Respiratory Rate 20 /min Mirella Mccracken [facility] Internal Medicine Work Phone: Comment on above: Pattern: Unlabored 10-03-2009 11:50-0500 Weight 61.46 kg Mirella Mccracken [facility] Internal Medicine Work Phone: 01-17-2009 07:54-0400 BMI (Body Mass Index) 27.37 kg/m2 Mirella Mccracken [facility] Internal Medicine Work Phone: 01-17-2009 07:54-0400 Body weight 61.46 kg Mirella Mccracken [facility] Internal Medicine Work Phone: 01-17-2009 07:54-0400 BP Diastolic 60 mm[Hg] Mirella Mccracken [facility] Internal Medicine Work Phone: Comment on above: Patient Position: Sitting; Cuff Location : Left Arm; Cuff Size: Large 01-17-2009 07:54-0400 BP Systolic 112 mm[Hg] Mirella Mccracken [facility] Internal Medicine Work Phone: Comment on above: Patient Position: Sitting; Cuff Location : Left Arm; Cuff Size: Large 01-17-2009 07:54-0400 BSA (Body Surface Area) 1.56 m2 Mirella Mccracken [facility] Internal Medicine Work Phone: 01-17-2009 07:54-0400 Head Circumference 0 cm Mirella Mccracken [facility] Internal Medicine Work Phone: 01-17-2009 07:54-0400 Height 149.86 cm Mirella Mccracken [facility] Internal Medicine Work Phone: 01-17-2009 07:54-0400 Pulse (Heart Rate) 64 /min Mirella Mccracken [facility] Internal Medicine Work Phone: Comment on above: Pattern: Regular 01-17-2009 07:54-0400 Respiratory Rate 20 /min Mirella Mccracken [facility] Internal Medicine Work Phone: Comment on above: Pattern: Unlabored 01-17-2009 07:54-0400 Weight 61.46 kg Mirella Mccracken [facility] Internal Medicine Work Phone: 01-12-2009 07:52-0400 BMI (Body Mass Index) 27.37 kg/m2 Mirella Mccracken [facility] Internal Medicine Work Phone: 01-12-2009 07:52-0400 Body weight 61.46 kg Mirella Mccracken [facility] Internal Medicine Work Phone: 01-12-2009 07:52-0400 BP Diastolic 78 mm[Hg] Mirella Mccracken [facility] Internal Medicine Work Phone: Comment on above: Patient Position: Sitting; Cuff Location : Left Arm; Cuff Size: Large 01-12-2009 07:52-0400 BP Systolic 122 mm[Hg] Mirella Mccracken [facility] Internal Medicine Work Phone: Comment on above: Patient Position: Sitting; Cuff Location : Left Arm; Cuff Size: Large 01-12-2009 07:52-0400 BSA (Body Surface Area) 1.56 m2 Mirella Mccracken [facility] Internal Medicine Work Phone: 01-12-2009 07:52-0400 Head Circumference 0 cm Mirella Mccracken [facility] Internal Medicine Work Phone: 01-12-2009 07:52-0400 Height 149.86 cm Mirella Mccracken [facility] Internal Medicine Work Phone: 01-12-2009 07:52-0400 Pulse (Heart Rate) 72 /min Mirella Mccracken [facility] Internal Medicine Work Phone: Comment on above: Pattern: Regular 01-12-2009 07:52-0400 Respiratory Rate 18 /min Mirella Mccracken [facility] Internal Medicine Work Phone: Comment on above: Pattern: Unlabored 01-12-2009 07:52-0400 Weight 61.46 kg Mirella Mccracken [facility] Internal Medicine Work Phone: 01-02-2009 09:31-0400 BMI (Body Mass Index) 27.37 kg/m2 Mirella Solano [facility] Internal Medicine Work Phone: 01-02-2009 09:31-0400 Body weight 61.46 kg Mirella Mccracken [facility] Internal Medicine Work Phone: 01-02-2009 09:31-0400 BP Diastolic 78 mm[Hg] Mirella Mccracken [facility] Internal Medicine Work Phone: Comment on above: Patient Position: Sitting; Cuff Location : Left Arm; Cuff Size: Large 01-02-2009 09:31-0400 BP Systolic 138 mm[Hg] Mirella Mccracken [facility] Internal Medicine Work Phone: Comment on above: Patient Position: Sitting; Cuff Location : Left Arm; Cuff Size: Large 01-02-2009 09:31-0400 BSA (Body Surface Area) 1.56 m2 Mirella Mccracken [facility] Internal Medicine Work Phone: 01-02-2009 09:31-0400 Head Circumference 0 cm Mirella Mccracken [facility] Internal Medicine Work Phone: 01-02-2009 09:31-0400 Height 149.86 cm Mirella Mccracken [facility] Internal Medicine Work Phone: 01-02-2009 09:31-0400 Pulse (Heart Rate) 72 /min Mirella Mccracken [facility] Internal Medicine Work Phone: Comment on above: Pattern: Regular 01-02-2009 09:31-0400 Respiratory Rate 20 /min Mirella Mccracken [facility] Internal Medicine Work Phone: Comment on above: Pattern: Unlabored 01-02-2009 09:31-0400 Weight 61.46 kg Mirella Mccracken [facility] Internal Medicine Work Phone: 12-07-2008 09:40-0400 BMI (Body Mass Index) 27.28 kg/m2 Mirella Solano [facility] Internal Medicine Work Phone: Comment on above: vision with correction OD= 20/50 OS=20/5 0 OU=20/50 12-07-2008 09:40-0400 Body weight 61.26 kg Mirella [facility] Medicine Work Phone: Comment on above: vision with correction OD= 20/50 OS=20/5 0 OU=20/50 12-07-2008 09:40-0400 BP Diastolic 78 mm[Hg] [facility] Medicine Work Phone: Comment on above: Patient Position: Sitting; Cuff Location : Left Arm; Cuff Size: Large vision with correcti on OD= 20/50 OS=20/50 OU=20/50 12-07-2008 09:40-0400 BP Systolic 122 mm[Hg] [facility] Medicine Work Phone: Comment on above: Patient Position: Sitting; Cuff Location : Left Arm; Cuff Size: Large vision with correcti on OD= 20/50 OS=20/50 OU=20/50 12-07-2008 09:40-0400 BSA (Body Surface Area) 1.56 m2 [facility] Work Phone: Comment on above: vision with correction OD= 20/50 OS=20/5 0 OU=20/50 12-07-2008 09:40-0400 Head Circumference 0 cm [facility] Work Phone: Comment on above: vision with correction OD= 20/50 OS=20/5 0 OU=20/50 12-07-2008 09:40-0400 Height 149.86 cm [facility] Medicine Work Phone: Comment on above: vision with correction OD= 20/50 OS=20/5 0 OU=20/50 12-07-2008 09:40-0400 Pulse (Heart Rate) 72 /min [facility] Medicine Work Phone: Comment on above: Pattern: Regular vision with correcti on OD= 20/50 OS=20/50 OU=20/50 12-07-2008 09:40-0400 Respiratory Rate 20 /min [facility] Medicine Work Phone: Comment on above: Pattern: Unlabored vision with correcti on OD= 20/50 OS=20/50 OU=20/50 12-07-2008 09:40-0400 Weight 61.26 kg Mirella Mccracken [facility] Internal Medicine Work Phone: Comment on above: vision with correction OD= 20/50 OS=20/5 0 OU=20/50 10-04-2008 09:20-0500 BMI (Body Mass Index) 26.31 kg/m2 Mirella Mccracken [facility] Internal Medicine Work Phone: 10-04-2008 09:20-0500 Body weight 59.08 kg Mirella Mccracken [facility] Internal Medicine Work Phone: 10-04-2008 09:20-0500 BP Diastolic 76 mm[Hg] [facility] Work [facility]: Comment on above: Patient Position: Sitting; Cuff Location : Left Arm; Cuff Size: Large 10-04-2008 09:20-0500 BP Systolic 124 mm[Hg] Mirella Mccracken [facility] Internal Medicine Work Phone: Comment on above: Patient Position: Sitting; Cuff Location : Left Arm; Cuff Size: Large 10-04-2008 09:20-0500 BSA (Body Surface Area) 1.54 m2 Mirella Mccracken [facility] Internal Medicine Work Phone: 10-04-2008 09:20-0500 Head Circumference 0 cm Mirella Mccracken [facility] Internal Medicine Work Phone: 10-04-2008 09:20-0500 Height 149.86 cm [facility] Work Phone: 10-04-2008 09:20-0500 Pulse (Heart Rate) 72 /min Mirella Mccracken [facility] Internal Medicine Work Phone: Comment on above: Pattern: Regular 10-04-2008 09:20-0500 Respiratory Rate 20 /min Mirella Mccracken [facility] Internal Medicine Work Phone: Comment on above: Pattern: Unlabored 10-04-2008 09:20-0500 Weight 59.08 kg Mirella Mccracken [facility] Internal Medicine Work Phone: 09-21-2008 14:19-0500 BMI (Body Mass Index) 26.9 kg/m2 Mirella [facility] Internal Medicine Work Phone: 09-21-2008 14:19-0500 Body weight 60.41 kg Mirella Mccracken [facility] Internal Medicine Work Phone: 09-21-2008 14:19-0500 BP Diastolic 80 mm[Hg] Mirella Mccracken [facility] Internal Medicine Work Phone: Comment on above: Patient Position: Sitting; Cuff Location : Left Arm; Cuff Size: Standard 09-21-2008 14:19-0500 BP Systolic 142 mm[Hg] Mirella Mccracken [facility] Internal Medicine Work Phone: Comment on above: Patient Position: Sitting; Cuff Location : Left Arm; Cuff Size: Standard 09-21-2008 14:19-0500 BSA (Body Surface Area) 1.55 m2 Mirella Mccracken [facility] Internal Medicine Work Phone: 09-21-2008 14:19-0500 Head Circumference 0 cm Mirella Mccracken [facility] Internal Medicine Work Phone: 09-21-2008 14:19-0500 Height 149.86 cm Mirella Mccracken [facility] Internal Medicine Work Phone: 09-21-2008 14:19-0500 Pulse (Heart Rate) 64 /min Mirella Mccracken [facility] Internal Medicine Work Phone: Comment on above: Pattern: Regular 09-21-2008 14:19-0500 Respiratory Rate 20 /min Mirella Mccracken [facility] Internal Medicine Work Phone: Comment on above: Pattern: Unlabored 09-21-2008 14:19-0500 Weight 60.41 kg Mirella Mccracken [facility] Internal Medicine Work Phone: 08-24-2008 13:56-0500 BMI (Body Mass Index) 26.9 kg/m2 Mirella Mccracken [facility] Internal Medicine Work Phone: 08-24-2008 13:56-0500 Body weight 60.41 kg Mirella Mccracken [facility] Internal Medicine Work Phone: 08-24-2008 13:56-0500 BP Diastolic 88 mm[Hg] Mirella Mccracken [facility] Internal Medicine Work Phone: Comment on above: Patient Position: Sitting; Cuff Location : Left Arm; Cuff Size: Standard 08-24-2008 13:56-0500 BP Systolic 142 mm[Hg] Mirella Mccracken [facility] Internal Medicine Work Phone: Comment on above: Patient Position: Sitting; Cuff Location : Left Arm; Cuff Size: Standard 08-24-2008 13:56-0500 BSA (Body Surface Area) 1.55 m2 Mirella Mccracken [facility] Internal Medicine Work Phone: 08-24-2008 13:56-0500 Head Circumference 0 cm Mirella Mccracken [facility] Internal Medicine Work Phone: 08-24-2008 13:56-0500 Height 149.86 cm Mirella Mccracken [facility] Internal Medicine Work Phone: 08-24-2008 13:56-0500 Pulse (Heart Rate) 80 /min Mirella Mccracken [facility] Internal Medicine Work Phone: Comment on above: Pattern: Regular 08-24-2008 13:56-0500 Respiratory Rate 20 /min Mirella Mccracken [facility] Internal Medicine Work Phone: Comment on above: Pattern: Unlabored 08-24-2008 13:56-0500 Weight 60.41 kg Mirella Mccracken [facility] Internal Medicine Work Phone: 06-28-2008 14:04-0400 BMI (Body Mass Index) 26.93 kg/m2 Mirella Mccracken [facility] Internal Medicine Work Phone: 06-28-2008 14:04-0400 Body weight 60.47 kg Mirella Mccracken [facility] Internal Medicine Work Phone: 06-28-2008 14:04-0400 BP Diastolic 78 mm[Hg] Mirella Mccracken [facility] Internal Medicine Work Phone: Comment on above: Patient Position: Sitting; Cuff Location : Left Arm; Cuff Size: Standard 06-28-2008 14:04-0400 BP Systolic 140 mm[Hg] Mirella Mccracken [facility] Internal Medicine Work Phone: Comment on above: Patient Position: Sitting; Cuff Location : Left Arm; Cuff Size: Standard 06-28-2008 14:04-0400 BSA (Body Surface Area) 1.55 m2 Mirella Mccracken [facility] Internal Medicine Work Phone: 06-28-2008 14:04-0400 Head Circumference 0 cm Mirella Mccracken [facility] Internal Medicine Work Phone: 06-28-2008 14:04-0400 Height 149.86 cm Mirella Mccracken [facility] Internal Medicine Work Phone: 06-28-2008 14:04-0400 Pulse (Heart Rate) 68 /min Mirella Mccracken [facility] Internal Medicine Work Phone: Comment on above: Pattern: Regular 06-28-2008 14:04-0400 Respiratory Rate 16 /min Mirella Mccracken [facility] Internal Medicine Work Phone: Comment on above: Pattern: Unlabored 06-28-2008 14:04-0400 Weight 60.47 kg Mirella Mccracken [facility] Internal Medicine Work Phone: Encounters Encounter Date Encounter Type Care Provider Facility Start: 02-13-2025 ambulatory Yesika Faust Facili ty:[facility] Start: 01-23-2025 ambulatory Efky Christiansone Facili ty:[facility] Start: 01-23-2025 Registered Referred Zeina Dolan Start: 01-18-2025 End: 01-18-2025 Departed Referred Yesika Dolan Start: 01-18-2025 Registered Referred Yesika Dolan Start: 01-18-2025 End: 01-18-2025 ambulatory Yesika Faust Facility:[facility] Start: 01-14-2025 End: 01-14-[address] Yesika Faust MD Work Phone: [facility] Work Phone: Start: 01-14-2025 End: 01-14-2025 Departed Referred Yesika Alvarezton Start: 01-14-2025 End: 01-14-2025 ambulatory Yesika VICENTE Facility:[facility] Start: 01-12-2025 End: 01-12-[address] Yesika Faust MD Work Phone: [facility] Work Phone: Start: 01-12-2025 End: 01-12-2025 Departed Referred Yesika Dolan Start: 01-12-2025 Registered Referred Yesika Dolan Start: 01-12-2025 End: 01-12-2025 ambulatory Yesika VICENTE Facility:[facility] Start: 12-14-2024 End: 12-14-[address] Yesika Faust MD Work Phone: [facility] Work Phone: Start: 12-14-2024 End: 12-14-2024 Departed Referred Yesika Dolan Start: 12-14-2024 Registered Referred Yesika Dolan Start: 12-14-2024 End: 12-14-2024 ambulatory Yesika VICENTE Facility:[facility] Start: 11-15-2024 End: 11-15-2024 ambulatory Yesika Faust Facility:[facility] Start: 11-15-2024 End: 11-15-[address] Yesika Faust MD -[facility] Work Phone: Start: 11-14-2024 End: 11-14-[address] Yesika Faust MD Work Phone: [facility] Work Phone: Start: 11-14-2024 End: 11-14-2024 Departed Referred Yesika Dolan Start: 11-14-2024 End: 11-14-2024 ambulatory Efewongbe Oleghe OLS Facility:[facility] Start: 10-27-2024 End: 10-27-2024 ambulatory Efewongbe Oleghe Facility:[facility] Start: 10-27-2024 End: 10-27-2024 Patient encounter procedure Miguel YATES -[facility] Work Phone: Start: 10-17-2024 ambulatory Efewongbe Oleghe OLS Fa cility:[facility] Start: 10-17-2024 Registered Referred Yesika DasSoniya Dolan Start: 10-14-2024 ambulatory Efewongbe Sammye OLS Fa cility:[facility] Start: 10-14-2024 Registered Referred Yesika DasSoniya Dolan Start: 09-20-2024 End: 09-20-2024 ambulatory Efenriquetaongbe Sammye Facility:[facility] Start: 09-20-2024 End: 09-20-[address] Yesika Faust MD -[facility] Work Phone: Start: 09-16-2024 ambulatory Efenriquetaongbe Sammye OLS Fa cility:[facility] Start: 09-16-2024 Registered Referred Yesika Dolan Start: 08-16-2024 End: 08-16-2024 Departed Referred Yesika Dolan Start: 08-16-2024 End: 08-16-2024 ambulatory Efewongbe Sammye OLS Facility:[facility] Start: 08-09-2024 End: 08-09-2024 ambulatory Efewongbe Sammye Facility:[facility] Start: 08-04-2024 End: 08-04-2024 ambulatory Zeina Balbuena NP Facility:[facility] Start: 08-04-2024 End: 08-04-2024 ambulatory Efewongbe Oleghe OLS Facility:[facility] Start: 08-02-2024 End: 08-02-2024 ambulatory Efewongbe Oleghe Facility:[facility] Start: 07-28-2024 End: 07-28-2024 ambulatory Efewongbe Oleghe Facility:[facility] Start: 07-04-2024 End: 07-04-2024 ambulatory Zeina Balbuena RESIDENTIAL CAREGIVER Facility:[facility] Start: 06-27-2024 End: 06-27-2024 ambulatory Carmen Azulo Facility:[facility] Start: 06-06-2024 End: 06-06-2024 ambulatory Zeina Balbuena RESIDENTIAL CAREGIVER Facility:[facility] Start: 05-27-2024 End: 05-27-2024 ambulatory Efewongbe Oleghe Facility:[facility] Start: 05-17-2024 End: 05-17-2024 ambulatory Efewongbe Oleghe Facility:[facility] Start: 05-17-2024 End: 05-17-2024 [facility] Start: 05-06-2024 End: 05-06-2024 ambulatory Efewongbe Oleghe Facility:[facility] Start: 04-29-2024 End: 04-29-2024 ambulatory Efewongbe Oleghe Facility:[facility] Start: 04-29-2024 ambulatory Efewongbe Oleghe Facili ty:[facility] Start: 04-14-2024 End: 04-14-2024 ambulatory Efewongbe Oleghe Facility:[facility] Start: 04-04-2024 End: 04-04-2024 ambulatory Efewongbe Oleghe Facility:[facility] Start: 12-22-2023 End: 12-22-[address] Cl Tsang Work Phone: [facility] Work Phone: Start: 11-30-2023 End: 11-30-[address] Cl Tsang Work Phone: [facility] Work Phone: Start: 11-17-2023 End: 11-17-[address] Cl Tsang Work Phone: [facility] Work Phone: Start: 11-17-2023 End: 11-17-[address] Cl Tsang Work Phone: [facility] Start: 10-20-2023 End: 10-20-[address] Cl Tsang Work Phone: [facility] Work Phone: Start: 10-08-2023 End: 10-08-[address] Cl Tsang Work Phone: [facility] Work Phone: Start: 08-25-2023 End: 08-25-[address] Cl Tsang Work Phone: [facility] Work Phone: Start: 08-18-2023 End: 08-18-[address] Cl Tsang Work Phone: [facility] Work Phone: Start: 08-18-2023 End: 08-18-[address] Cl Tsang Work Phone: [facility] Start: 06-30-2023 End: 06-30-[address] Cl Tsang Work Phone: [facility] Work Phone: Start: 06-08-2023 End: 06-08-[address] Cl Tsang Work Phone: [facility] Work Phone: Start: 06-04-2023 End: 06-04-[address] Cl Tsang Work Phone: [facility] Work Phone: Start: 05-28-2023 End: 05-28-[address] Cl Tsang Work Phone: [facility] Work Phone: Start: 05-21-2023 End: 05-21-[address] Cl Tsang Work Phone: [facility] Work Phone: Start: 05-19-2023 End: 05-19-[address] Cl Tsang Work Phone: [facility] Start: 05-13-2023 End: 05-13-[address] Cl Tsang Work Phone: [facility] Work Phone: Start: 04-09-2023 End: 04-09-[address] Cl Tsang Work Phone: [facility] Work Phone: Start: 04-07-2023 End: 04-07-[address] Cl Tsang Work Phone: [facility] Work Phone: Start: 02-17-2023 End: 02-17-[address] Cl Tsang Work Phone: [facility] Work Phone: Start: 02-17-2023 End: 02-17-[address] Cl Tsang Work Phone: [facility] Work Phone: Start: 02-17-2023 End: 02-17-[address] Cl Tsang Work Phone: [facility] Start: 02-10-2023 End: 02-10-[address] Cl Tsang Work Phone: [facility] Work Phone: Start: 01-12-2023 End: 01-12-[address] Cl Tsang Work Phone: [facility] Work Phone: Start: 01-12-2023 End: 01-12-[address] Cl Tsang Work Phone: [phone] [address] Start: 12-29-2022 End: 12-29-[address] Cl Tsang Work Phone: [facility] Start: 12-23-2022 End: 12-23-[address] Cl Tsang Work Phone: [facility] Start: 12-05-2022 End: 12-05-[address] Cl Tsang Work Phone: [facility] Start: 11-18-2022 End: 11-18-[address] Cl Tsang Work Phone: [facility] Work Phone: Start: 11-18-2022 End: 11-18-[address] Cl Tsang Work Phone: [facility] Start: 10-28-2022 End: 10-28-[address] Cl Tsang Work Phone: [facility] Start: 10-17-2022 End: 10-17-[address] Cl Tsang Work Phone: [facility] Start: 10-08-2022 End: 10-08-[address] Cl Tsang Work Phone: [facility] Start: 09-01-2022 End: 09-01-[address] Cl Tsang Work Phone: [facility] Start: 08-19-2022 End: 08-19-[address] Cl Tsang Work Phone: [facility] Work Phone: Start: 08-19-2022 End: 08-19-[address] Cl Tsang Work Phone: [facility] Start: 07-29-2022 End: 07-29-[address] Cl Tsang Work Phone: [facility] Start: 05-29-2022 End: 05-30-[address] Cl Tsang Work Phone: [facility] Start: 05-20-2022 End: 05-20-[address] Cl Tsang Work Phone: [facility] Work Phone: Start: 05-20-2022 End: 05-20-[address] Cl Tsang Work Phone: [facility] Start: 04-18-2022 End: 04-18-[address] Cl Tsang Work Phone: [facility] Start: 03-07-[address] Cl herrera Work Phone: [facility] Start: 01-13-2022 End: 01-13-[address] Cl Tsang Work Phone: [facility] Start: 11-14-2021 End: 11-14-2021 Patient encounter procedure TRUDY YATES Work Phone: [facility] Start: 11-12-2021 End: 11-12-2021 Departed Referred TRUDY YATES Work Phone: [facility] Start: 09-30-2021 End: 09-30-2021 Patient encounter procedure TRUDY YATES Work Phone: [facility] Start: 05-05-2019 Review Mirella Mccracken [facility] Start: 05-05-2019 End: 05-05-2019 Office outpatient visit 25 minutes Mirella Mccracken [facility] Start: 03-15-2019 Review Mirella Searson Compreh ens[facility] Start: 03-15-2019 End: 03-15-2019 Office outpatient visit 15 minutes Mirella Sunshine [facility] Start: 01-21-2018 End: 01-21-2018 Office outpatient visit 25 minutes Mirella Sunshine [facility] Start: 11-09-2017 End: 11-09-2017 Office outpatient visit 10 minutes Mirella Sunshine [facility] Start: 10-15-2017 End: 10-15-2017 Office outpatient visit 15 minutes Mirella Mccracken [facility] Start: 09-18-2017 End: 09-18-2017 Office outpatient visit 25 minutes Mirella Mccracken [facility] Start: 05-07-2017 End: 05-07-2017 Office outpatient visit 25 minutes Mirella Mccracken [facility] Start: 03-26-2017 End: 03-26-2017 Office outpatient visit 10 minutes Mirella Sunshine [facility] Start: 12-25-2016 End: 12-25-2016 Office outpatient visit 25 minutes Mirella Mccracken [facility] Start: 09-25-2016 End: 09-25-2016 Office outpatient visit 15 minutes Mirella Mccracken [facility] Start: 09-16-2016 End: 09-17-2016 Office outpatient visit 5 minutes Mirella Mccracken [facility] Start: 07-02-2016 End: 07-02-2016 Phone Encounter Mirella Sunshine Claim Processing Specialist al Medicine Start: 07-01-2016 End: 07-01-2016 Office outpatient visit 5 minutes Mirella Sunshine [facility] Start: 06-25-2016 End: 06-25-2016 Office outpatient visit 25 minutes Mirella Mccracken [facility] Start: 05-21-2016 End: 05-21-2016 Office outpatient visit 10 minutes Mirella Sunshine [facility] Start: 01-04-2016 End: 01-04-2016 Office outpatient visit 25 minutes Mirella Sunshine [facility] Start: 12-06-2015 End: 12-06-2015 Office outpatient visit 10 minutes Mirella Sunshine [facility] Start: 11-29-2015 End: 11-29-2015 Office outpatient visit 25 minutes Mirella Sunshine [facility] Start: 11-08-2015 End: 11-08-2015 Patient encounter procedure Mirella Sunshine [facility] Start: 10-24-2015 End: 10-24-2015 Periodic preventive med est patient 65yrs& older Mirella Nicole [facility] Start: 08-13-2015 End: 08-13-2015 Office outpatient visit 5 minutes Mirella Mccracken [facility] Start: 08-08-2015 End: 08-08-2015 Office outpatient visit 5 minutes Mirella Mccracken [facility] Start: 08-02-2015 End: 08-02-2015 Office outpatient visit 5 minutes Mirella Mccracken [facility] Start: 07-27-2015 End: 07-27-2015 Office outpatient visit 5 minutes Mirella Mccracken [facility] Start: 07-26-2015 End: 07-26-2015 Office outpatient visit 25 minutes Mirella Mccracken [facility] Start: 07-06-2015 End: 07-06-2015 Office outpatient visit 25 minutes Mirella Mccracken [facility] Start: 05-30-2015 End: 06-04-2015 Office outpatient visit 5 minutes Mirella Mccracken [facility] Start: 05-23-2015 End: 05-23-2015 Annotation/Addendum Mirella Sunshine [facility] Start: 05-23-2015 End: 05-23-2015 Office outpatient visit 5 minutes Mirella Mccracken [facility] Start: 05-16-2015 End: 05-16-2015 Office outpatient visit 5 minutes Mirella Mccracken [facility] Start: 05-09-2015 End: 05-09-2015 Office outpatient visit 5 minutes Mirella Mccracken [facility] Start: 04-26-2015 End: 04-26-2015 Phone Encounter Mirella Sunshine [facility] Processing [facility] Start: 04-19-2015 End: 04-19-2015 Office outpatient visit 40 minutes Mirella Mccracken [facility] Start: 01-11-2015 End: 01-11-2015 Office outpatient visit 25 minutes Mirella Mccracken [facility] Start: 10-31-2014 End: 10-31-2014 Office outpatient visit 15 minutes Mirella Mccracken [facility] Start: 10-12-2014 End: 10-12-2014 Office outpatient visit 25 minutes Mirella Mccracken [facility] Start: 09-11-2014 End: 09-11-2014 Phone Encounter Mirella Sunshine [facility] Processing [facility] Start: 08-31-2014 End: 08-31-2014 Office outpatient visit 15 minutes Mirella Mccracken [facility] Start: 08-21-2014 End: 08-22-2014 Office outpatient visit 5 minutes Mirella Sunshine [facility] Start: 08-14-2014 End: 08-14-2014 Periodic preventive med est patient 65yrs& older Mirella Sunshine [facility] Start: 07-26-2014 End: 07-26-2014 Office outpatient visit 15 minutes Mirella Sunshine [facility] Start: 07-25-2014 End: 07-25-2014 Office outpatient new 20 minutes Mirella Mccracken [facility] Start: 07-13-2014 End: 07-14-2014 Office outpatient visit 15 minutes Mirella Mccracken [facility] Start: 04-17-2014 End: 04-17-2014 Office outpatient visit 15 minutes Mirella Mccracken [facility] Start: 04-13-2014 End: 04-13-2014 Phone Encounter Mirella Sunshine [facility] Processing [facility] Start: 04-06-2014 End: 04-06-2014 Patient encounter procedure Mirella Mccracken [facility] Start: 04-06-2014 End: 04-06-2014 Patient encounter procedure Mirella Mccracken [facility] Start: 12-30-2013 End: 12-30-2013 Patient encounter procedure Mirella Mccracken [facility] Start: 12-22-2013 End: 12-22-2013 Patient encounter procedure Mirella Mccracken [facility] Start: 12-01-2013 End: 12-01-2013 Phone Encounter Mirella Mccracken [facility] Start: 12-01-2013 End: 12-01-2013 Patient encounter procedure Mirella Mccracken [facility] Start: 09-23-2013 End: 09-23-2013 Patient encounter procedure Mirella Mccracken [facility] Start: 09-13-2013 End: 09-13-2013 Phone Encounter Mirella Mccracken [facility] Start: 08-01-2013 End: 08-01-2013 Patient encounter procedure Mirella Mccracken [facility] Start: 07-04-2013 End: 07-04-2013 Patient encounter procedure Mirella Mccracken [facility] Start: 06-27-2013 End: 06-27-2013 Patient encounter procedure Mirella Mccracken [facility] Start: 06-20-2013 End: 06-20-2013 Patient encounter procedure Mirella Mccracken [facility] Start: 06-08-2013 End: 06-08-2013 Patient encounter procedure Mirella Mccracken [facility] Start: 05-20-2013 End: 05-20-2013 Patient encounter procedure Mirella Mccracken [facility] Start: 04-22-2013 End: 04-22-2013 Patient encounter procedure Mirella Mccracken [facility] Start: 04-15-2013 End: 04-15-2013 Patient encounter procedure Mirella Mccracken [facility] Start: 03-31-2013 End: 03-31-2013 Patient encounter procedure Mirella Mccracken [facility] Start: 02-28-2013 End: 02-28-2013 Patient encounter procedure Mirella Mccracken [facility] Start: 11-15-2012 End: 11-15-2012 Patient encounter procedure Mirella Mccracken [facility] Start: 10-25-2012 End: 10-25-2012 Patient encounter procedure Mirella Mccracken [facility] Start: 10-21-2012 End: 10-21-2012 Patient encounter procedure Mirellaleatha Mccracken [facility] Start: 09-30-2012 End: 09-30-2012 Patient encounter procedure Mirellaleatha Mccracken [facility] Start: 09-30-2012 End: 09-30-2012 Phone Encounter Mirellaleatha Mccracken [facility] Start: 09-16-2012 End: 09-16-2012 Patient encounter procedure Mirellaleatha Mccracken [facility] Start: 05-27-2012 End: 05-28-2012 Nursing evaluation of patient and report Mirellaleatha Searson [facility] Start: 03-11-2012 End: 03-11-2012 Patient encounter procedure Mirellaleatha Searson [facility] Start: 03-04-2012 End: 03-05-2012 Patient encounter procedure Mirellaleatha Mccracken [facility] Start: 02-25-2012 End: 02-25-2012 Patient encounter procedure Mirellaleatha Mccracken [facility] Start: 02-05-2012 End: 02-05-2012 Phone Encounter Mirellaleatha Mccracken [facility] Start: 02-04-2012 End: 02-04-2012 Phone Encounter Mirellaleatha Searson [facility] Start: 01-30-2012 End: 01-30-2012 Patient encounter procedure Mirellaleatha Searson [facility] Start: 01-15-2012 End: 01-15-2012 Patient encounter procedure Mirella Nicole [facility] Start: 12-31-2011 End: 12-31-2011 Patient encounter procedure Mirellaleatha Searson [facility] Start: 12-26-2011 End: 12-26-2011 Patient encounter procedure Mirellaleatha Searson [facility] Start: 12-24-2011 End: 12-24-2011 Patient encounter procedure Mirella Mccracken [facility] Start: 12-15-2011 End: 12-15-2011 Patient encounter procedure Mirella Mccracken [facility] Start: 11-26-2011 End: 11-26-2011 Patient encounter procedure Mirellaleatha Searson [facility] Start: 11-12-2011 End: 11-12-2011 Patient encounter procedure Mirella Searson [facility] Start: 11-06-2011 End: 11-06-2011 Office outpatient visit 25 minutes Mirella Mccracken [facility] Start: 10-22-2011 End: 10-22-2011 Annotation/Addendum Mirella Mccracken [facility] Start: 10-21-2011 End: 10-21-2011 Office outpatient visit 25 minutes Mirella Mccracken [facility] Start: 06-05-2011 End: 06-05-2011 Patient encounter procedure Mirella Nicole [facility] Start: 05-08-2011 End: 05-08-2011 Patient encounter procedure Mirellaleatha Searson [facility] Start: 05-07-2011 End: 05-07-2011 Office outpatient visit 15 minutes Mirella Mccracken [facility] Start: 05-06-2011 End: 05-06-2011 Office outpatient visit 15 minutes Mirella Nicole [facility] Start: 11-06-2010 End: 11-06-2010 Office outpatient visit 15 minutes Mirella Mccracken [facility] Start: 11-04-2010 End: 11-04-2010 Office outpatient visit 15 minutes Mirella Mccracken [facility] Start: 10-14-2010 End: 10-14-2010 Patient encounter procedure Mirella Nicole [facility] Start: 07-17-2010 End: 07-17-2010 Patient encounter procedure Mirella Nicole [facility] Start: 06-17-2010 End: 06-17-2010 Patient encounter procedure Mirella Nicole [facility] Start: 01-25-2010 End: 01-25-2010 Patient encounter procedure Mirella Nicole [facility] Start: 12-13-2009 End: 12-13-2009 Patient encounter procedure Mirella Mccracken [facility] Start: 10-03-2009 End: 10-03-2009 Office outpatient visit 10 minutes Mirella Mccracken [facility] Start: 06-13-2009 End: 06-13-2009 Patient encounter procedure Mirella Mccracken [facility] Start: 01-17-2009 End: 01-17-2009 Office outpatient visit 15 minutes Mirella Mccrackne [facility] Start: 01-12-2009 End: 01-12-2009 Office outpatient visit 25 minutes Mirella Mccracken [facility] Start: 01-02-2009 End: 01-02-2009 Patient encounter procedure Mirella Mccracken [facility] Start: 12-07-2008 End: 12-07-2008 Patient encounter procedure Mirella Mccracken [facility] Start: 10-04-2008 End: 10-04-2008 Patient encounter procedure Mirella Mccracken [facility] Start: 09-21-2008 End: 09-21-2008 Office outpatient visit 25 minutes Mirella Mccracken [facility] Start: 08-24-2008 End: 08-24-2008 Patient encounter procedure Mirella Mccracken [facility] Start: 06-28-2008 End: 06-28-2008 Patient encounter procedure Mirella Mccracken [facility] Start: 06-28-2008 End: 06-28-2008 Patient encounter procedure Mirella Mccracken [facility] Start: 06-26-2008 End: 06-26-2008 Historical Summary Mirella Mccracken [facility] Processing Special[facility] al [facility] Procedures Date Procedure Procedure Detail Performing Clinician Start: 01-14-2025 Urnls dip stick/tablet reagent auto microscopy Dr. Yesika Faust MD Work Phone: Start: 01-14-[address] Yseika Faust MD Work Phone: Start: 10-17-2024 Measurement of renal function Dr. Yesika Faust MD Work Phone: Comment on above: GFR Calc Start: 10-14-[address] Yesika Faust MD Work Phone: Start: 10-14-2024 Urnls dip stick/tablet reagent auto microscopy Dr. Yesika Faust MD Work Phone: Start: 05-13-2023 Radiologic examination of knee Dr. Cl Tsang Work Phone: Start: 10-17-2022 End: 10-17-2022 Radiologic examination of knee Dr. Cl Tsang Work Phone: Start: 09-01-2022 Radiologic examination of knee Dr. Cl Tsang Work Phone: Start: 09-30-2021 Radiologic examination of knee TRUDY YATES Work Phone: Start: 05-27-2019 End: 05-27-2019 Chest 1 View (Portable) Comments: See Note; NOTES: [facility] Imaging Services [address] [place] [address] Chest 1 View (Portable) MR#: [id number] Acct: [id number] Name: AGUSTIN GARCIA Rep #: [id number] : 1940 F 79 From: Antoni Gaviria MD PCP: Mirella Mccracken DO Status: [facility] Study: Chest 1 View (Portable) Date of Exam: 05/27/19 Exam# [id number] Ordering Dr: Satish Gonzales MD STUDY: X-RAY CHEST REASON FOR EXAM: Female, 79 years old. Right shoulder and rib pain status post surgery TECHNIQUE: Single AP portable view of the chest. COMPARISON: Prior study of 03/26/2017 FINDINGS: There are wispy fibrotic and/or atelectatic changes of the lung bases. There is no demonstrated pleural abnormality. The heart size is within normal limits. Status post sternotomy changes are noted. Normal mediastinum and karthik. Normal visualized pulmonary arteries. There are calcified plaques of the aortic arch. Normal visualized thoracic spine. Normal visualized ribs, clavicles, and shoulders. There is no demonstrated abnormality of the visualized soft tissue structures of the upper abdomen. RAD/Chest 1 View (Portable) IMPRESSION: Wispy fibrotic and/or atelectatic changes of the lung bases, new in the interval. Calcified plaques of the aortic arch. Status post sternotomy. Electronically Signed: Antoni Gaviria MD at 17:24 EDT , Service support , CC: Satish Gonzales MD; Mirella Mccracken DO Ladle Cleaner: Signed Mirella Mccracken Start: 05-27-2019 End: 05-27-2019 Shoulder min 2 Views Comments: See Note; NOTES: [facility] Imaging Services [address] [place] [address] Shoulder min 2 Views MR#: [id number] Acct: [id number] Name: AGUSTIN GARCIA Rep #: [id number] : 1940 F 79 From: Antoni Gaviria MD PCP: Mirella Mccracken DO Status: [facility] Study: Shoulder min 2 Views Date of Exam: 05/27/19 Exam# [id number] Ordering Dr: Aury Hyde MD STUDY: X-RAY - RIGHT SHOULDER REASON FOR EXAM: Female, 79 years old. Right shoulder pain TECHNIQUE: 2 view(s) of the shoulder. COMPARISON: None. FINDINGS: Normal glenohumeral articulation. Normal acromioclavicular joint. Normal acromion. Normal humeral head and visualized proximal humerus. The soft tissue structures are unremarkable. Normal visualized pulmonary apex. RAD/Shoulder min 2 Views IMPRESSION: Normal x-ray examination of the shoulder. Electronically Signed: Antoni Gaviria MD at 17:22 EDT , Service support , CC: Aury Hyde MD; Mirella Mccracken DO Ladle Cleaner: Signed Mirella Mccracken Start: 05-27-2019 End: 05-27-2019 Operative Report Comments: See Note; NOTES: [facility] Medical Records Department [address] [place] [address] Operative Report 05/27/19 1615 MR#: [id number] Acct: [id number] Name: AGUSTIN GARCIA Rep #: [id number] : 1940 79 From: Uriel Francois MD PCP: Mirella Mccracken DO Status: REG [facility] Y Location: [place] [address] Report of Operation Date of Procedure: 05/27/19 Pre-Operative Diagnosis: Left hydronephrosis seen on CT scan, InterStim device nonfunctional due to battery life, overactive bladder urge incontinence. Post-Operative Diagnosis: The same Surgery/Procedure Performed:: 1., Cystoscopy, left retrograde pyelogram, interpretation fluoroscopic images. #2. InterStim stage II change of generator and battery. Description of Surgical Findings:: 79-year-old female who had a recent CAT scan to demonstrate some mild left hydronephrosis we will do a retrograde pyelogram to evaluate this she did have a prior operative procedure on her kidney she cannot remember what this could just be result from this procedure. She also has overactive bladder and urge incontinence which now is worsened and she did have a InterStim device placed 9 years ago and working to replace the generator battery. 79-year-old female taken back to the operating room at the [facility] local she was placed in dorsolithotomy position went into the bladder with a 21 Ethiopian rigid cystourethroscope cannulated the left ureteral orifice with a Glidewire and a Pollack catheter performed a retrograde pyelogram and the pyelograms consistent with normal anatomy normal smooth contrast with some mild dilation of the renal pelvis but no obstruction no tumors or stones seen in the retrograde pyelogram. Patient was then repositioned facedown on the table we found the old incision site for the InterStim in the old site for the generator, we infiltrated the skin with lidocaine the area was prepped and draped in usual sterile fashion made an incision above the generator dissected sharply down to the generator making sure not to injure the lead found the generator and the pseudo-sac around the opened it up pulled out the generator use the bolts to undo the screw and then took the generator off the old lead we then tested the lead 012 and 3 leads were tested we had toe and abdiel on all leads checked. We then placed a new generator onto the lead advanced all the way and tighten out with a bolt and then we checked for impedances impedances were low we then placed the generator back into the pocket closed the pocket in 2 layers with sutures dressings and bandages were placed patient taken back to PACU in good condition and we completed change of stage II generator and InterStim implant. Type of Anesthesia:: Local MAC - Admit VTE Documentation VTE Present on Admission: No VTE Mechan Device Prophylaxis: SCD's 05/27/199 <Electronically signed by Uriel Francois MD> Date Uriel Francois MD CC: Uriel Francois MD; Mirella Mccracken DO Signed Mirella Mccracken Start: 05-27-2019 End: 05-27-2019 Discharge Instruction Comments: See Note; NOTES: [facility] Medical Records Department [address] [place] [address] Instructions for Home/Discharge Instructions 05/27/19 1614 MR#: [id number] Acct: [id number] Name: AGUSTIN GARCIA Rep #: [id number] : 1940 79 From: Uriel Francois MD PCP: Mirella Mccracken DO Status: REG [facility] Discharge Diet: Light diet - advance as tolerated Discharge Activity: Return to Normal Activity Call your doctor if your incision/area has: Continuous Slow Oozing, Sudden Increased Bleeding, Increased Pain/ Swelling, Increased Redness, Foul Smelling Discharge Call your doctor if you observe: Fever of 101 or Higher Suture Line Care: Avoid Pulling/Pushing, Avoid Pinching/Bending Allergies/Adverse Reactions: Allergies No Known Allergies Allergy (Verified 05/27/19 14:15) Medications to take at Discharge Aspirin E.C. [Ecotrin] 81 mg PO DAILY@0800 07/25/14 Cholecalciferol (VIT D3) [Vitamin D3] 1,000 unit PO DAILY 07/25/14 rosuvastatin 20 mg tablet 10 mg PO QDAY 11/23/17 Melatonin/Pyridoxine HCl (B6) [Melatonin 3 mg Tablet] 1 ea PO PRN PRN 05/13/19 Vit C/E/Zn/Coppr/Lutein/Zeaxan [Preservision Areds 2 Softgel] 1 ea PO DAILY 05/13/19 Primary Care Physician: Mirella Mccracken DO [Primary Care Provider] - Test Results: Test results from this visit will be discussed in further detail at your follow-up appointment, if applicable. Please Follow Up With: Uriel Francois MD When: in 2 weeks, please call to make an appointment. 05/27/19 1614 <Electronically signed by Uriel Francois MD> Date Uriel Francois MD CC: Mirella Mccracken DO Signed Mirella Mccracken Start: 05-27-2019 End: 05-27-2019 Pelvis 1 or 2 Views Comments: See Note; NOTES: [facility] Imaging Services [address] [place] [address] Pelvis 1 or 2 Views MR#: [id number] Acct: [id number] Name: AGUSTIN GARCIA Rep #: [id number] : 1940 F 79 From: Antoni Gaviria MD PCP: Mirella Mccracken DO Status: [facility] Study: Pelvis 1 or 2 Views Date of Exam: 05/27/19 Exam# [id number] Ordering Dr: Uriel Francois MD STUDY: X-RAY - PELVIS REASON FOR EXAM: Female, 79 years old. TECHNIQUE: One view of the pelvis was obtained. COMPARISON: None. FINDINGS: This single intraoperative view demonstrates a stimulator electrode projecting over the right pelvis. RAD/Pelvis 1 or 2 Views IMPRESSION: Single intraoperative view demonstrates a stimulator electrode projecting over the right pelvis. Electronically Signed: Antoni Gaviria MD at 16:34 EDT , Service support , CC: Uriel Francois MD; Mirella Mccracken DO Ladle Cleaner: Signed Mirella Mccracken Start: 05-05-2019 End: 05-05-2019 Abdomen/Pelvis WITH Contrast Comments: See Note; NOTES: [facility] Imaging Services [address] [place] [address] Abdomen/Pelvis WITH Contrast MR#: [id number] Acct: [id number] Name: AGUSTIN GARCIA Rep #: [id number] : 1940 F 79 From: Zoran Reinoso MD PCP: Mirella Mccracken DO Status: REG CLI Study: Abdomen/Pelvis WITH Contrast Date of Exam: 05/05/19 Exam# [id number] Ordering Dr: Mirella Mccracken DO STUDY: CT ABDOMEN AND PELVIS WITH CONTRAST REASON FOR EXAM: Female, 79 years old. Left-sided pain with lymphedema RADIATION DOSAGE (If Supplied By Facility): CTDIvol = ( 17.83 ) mGy, DLP = ( 2077.66 ) mGycm TECHNIQUE: Transaxial images were obtained from the dome of the diaphragm to the symphysis pubis with oral contrast. 100 IV/Oral Isovue 300 was administered. Sagittal and coronal images were reconstructed. Individualized dose optimization techniques were used for this CT. COMPARISON: None. FINDINGS: The visualized lung bases are unremarkable. Calcified mitral annulus. Median sternotomy wires. Small hiatal hernia. Subcentimeter right hepatic lobe hypodensity may be a small cyst. There are surgical clips in the gallbladder fossa consistent with a prior cholecystectomy. Normal spleen. Normal pancreas. Normal bilateral adrenal glands. Moderate left and mild right hydroureteronephrosis without evidence of underlying obstructing stone. Normal visualized stomach. Normal small intestine. There are multiple colonic diverticula consistent with diverticulosis. There is non-visualization of the appendix. Normal abdominal aorta. Normal inferior vena cava. Normal retroperitoneum. Normal urinary bladder. Postoperative changes of the anterior abdominal wall. Right hip arthroplasty. Sacral stimulator. CT/Abdomen/Pelvis WITH Contrast IMPRESSION: Moderate left and mild right hydroureteronephrosis without evidence of underlying obstructing stone. No evidence of acute intestinal pathology. Electronically Signed: Zoran Reinoso MD at 17:05 EDT Tel , Service support , CC: Mirella Mccracken DO Ladle Cleaner: Signed Mirella Mccracken Work Phone: Start: 03-18-2019 End: 03-18-2019 Pelvic (Non ) Comments: See Note; NOTES: [facility] Imaging Services [address] [place] [address] Pelvic (Non ) MR#: [id number] Acct: [id number] Name: RADHAAGUSTIN Rep #: [id number] : 1940 F 78 From: Avi Fisher MD PCP: Mirella Mccracken DO Status: REG CLI Study: Pelvic (Non ) Date of Exam: 03/18/19 Exam# [id number] Ordering Dr: Mirella Mccracken DO STUDY: ULTRASOUND OF THE FEMALE PELVIS - COMPLETE REASON FOR EXAM: Female, 78 years old. Hysterectomy TECHNIQUE: Transabdominal ultrasound images were obtained of the pelvis TECHNICAL QUALITY: Adequate. COMPARISON: None. FINDINGS: The uterus has been removed. The right ovary has been removed. The left ovary has been removed. There is no fluid in the cul-de-sac. US/Pelvic (Non ) IMPRESSION: Status post hysterectomy and bilateral oophorectomy. No pelvic pathology identified. Electronically Signed: Avi Fisher, at 16:41 EDT Tel , Service support , CC: Mirella Mccracken DO Ladle Cleaner: Signed Mirella Mccracken Work Phone: Start: 03-15-2019 End: 03-15-2019 Venous Duplex Lower Extremity Comments: See Note; NOTES: [facility] Cardiovascular Services [address] [place] [address] Venous Duplex US, Unilateral 03/15/19 1340 MR#: [id number] Acct: [id number] Name: AGUSTIN GARCIA Rep #: [id number] : 1940 78 From: James Moctezuma MD Attending Dr: Mirella Mccracken DO Status: REG CLI Ordering Dr: Mirella Mccracken DO Date: 03/15/19 Location: [facility] Sex: F C Admitted: Reason For Study: pain RIGHT LEFT CFV is compressible, spontaneous, phasic, GSV is normal. competent and demonstrates normal CFV is compressible, spontaneous, phasic, augmentation. competent, and demonstrates normal Procedure augmentation. Exam performed in department. FV is compressible, spontaneous, phasic, The exam was diagnostic. competent and demonstrates normal A preliminary report was called and/or faxed augmentation. to Dr. Mccracken. POP V is compressible, spontaneous, phasic, competent and demonstrates normal augmentation. T/P Trunk is compressible. PTV is compressible. LT PerV is compressible. Interpretation Summary Deep veins of the left lower extremity are patent and compressible segmentally. There is no evidence of left lower extremity deep vein thrombosis. Valvular competence appears intact within the proximal deep venous system on the left . The left greater saphenous vein appears patent and compressible segmentally. Ordering Physician: Mirella Mccracken Performed By: Dilshad Russo, RVT 03/15/19 1423 Date James Moctezuma MD CC: Mirella Mccracken DO Date Dictated: 03/15/19 1340 Date Transcribed: 03/15/19 142 Ladle Cleaner: Signed Mirella Mccracken Work Phone: Start: 11-17-2017 End: 11-17-2017 PT D/C Summary (1) Comments: See Note; NOTES: [facility] Physical Therapy [facility] [place] [address] Fax REHABILITATION SERVICES DISCHARGE SUMMARY MR#: [id number] Acct: [id number] Name: AGUSTIN GARCIA Rep #: [id number] : 1940 77 From: Chester Christine DPT, OCS, CSCS Referring DrSamaria: Mirella Mccracken DO Status: REG RCR Insurance: MEDICARE PART A B AARP HP - PT D/C Summary It has been my pleasure to treat AGUSTIN GARCIA under orders from Mirella Mccracken DR.KFSOM for the diagnosis of L hip pain. for a total of 2 visit(s). Discharge Date: 11/16/17 Please see the following information for a summary of their discharge status. - Subjective Subjective: I am back to normal. No pain over weekend. Done stretches each day and feels good. Activity is normal. Shovelled snow and no pain. Ready to be done with PT. Started Soring cleaning. - Pain L quad Pain Intensity (Out of 10): 0 - Overall Improvement % Improvement: 100 - Objective Objective/Function: Steps reciprocal without hesitation. Gait without antalgia today. Full aROM and symmetrical B hips and knees, no tenderness in L quad or ITB today. - Goals Goal 1:: Walk without antalgia and steps with L. Goal Progress: Goal Met Goal 2:: Pt feel 75% better and pain no greater than 1/10 Goal Progress: Goal Met Goal 3:: I approp HEp to minimize future problems. Goal Progress: Goal Met - Plan Plan: D/C, pt request adn appropriate. - D/C Information Discharge Comments: Pt doing well and no longer in need of PT. Will continue stretch and contact doctor if pain returns. If there are questions or concerns regarding this patient's physical therapy, please feel free to call me at [phone]. Thank you for the referral of this patient. Sincerely, Chester Christine DPT, OC <Electronically signed by Chester Christine DPT, MAKEDA, CSCS> 11/17/17 0920 CC: Mirella Mccracken DO EBG Signed Mirella Mccracken Start: 11-13-2017 End: 11-13-2017 Inital Evaluation (1) - PT Comments: See Note; NOTES: [facility] [address] [place] [address]. [address] [place] [address] Fax REHABILITATION SERVICES INITIAL EVALUATION MR#: [id number] Acct: [id number] Name: AGUSTIN GARCIA Rep #: [id number] : 1940 77 From: Chester Christine DPT, MAKEDA, CSCS Referring DrSamaria: Mirella Mccracken DO Status: REG RCR Insurance: MEDICARE PART A B [facility] Patient's Visit Information AGUSTIN GARCIA is a 77 year old F referred to Physical Therapy by Mirella PARKS with a diagnosis of L hip pain.. Date of Evaluation: 11/12/17 Physical Therapist: Chester Christine DPT, OC - Visit Plan Frequency: 3x /Week Duration: 4 Weeks Plan: 3x/week for 3-4 weeks... 1. Moist heat L quad/ITB. 2. STM/rollout to same. 3. Stretch ITB and quad on L. 4. PROM L hip and long leg traction. 5. Strength L hip NWB adn progress to HEP. - Subjective Subjective: L quad pain for 3 weeks. Injected which helped tremendously for a week. Got another injection adn sent for PT. Insidious onset for no apparent reason. Hurts with activity /walking. Sitting is comfortable. Used to walk 3 miles in an hour but has not been able to do that lately. Sleep is OK. Basic activites are OK, they just hurt and that is frustrating. Not employed. - Pain L quad Pain Intensity (Out of 10): 0 Pain Intensity Range: 0, 6 - Objective Antalgic L gait avoiding L hip extension at end stance. but I with gait and transfers. L quad tender to touch in ITB, GT and lateral andterior quad max tender. + jeffry test L, tight ITB L, hurts to stretch quad L. strength is 4-/5 B knees and ankles without pain, L quad mild tenderness with testing. Hip strength is 4- on R and 4- on L but painful with abduction and flexion. L hip ROM simliar to that of R, 45 ext rotation and 10 IR, pain with IR and + L hip scour. - Goals Goal 1:: Walk without antalgia and steps with L. Goal Time Frame: 4-6 Weeks Goal 2:: Pt feel 75% better and pain no greater than 1/10 Goal Time Frame: 4-6 Weeks Goal 3:: I approp HEp to minimize future problems. Goal Time Frame: 4-6 Weeks - Rehabilitation Potential Physical Therapy Diagnosis: L hip pain OA vs soft tissue quad/ITB Rehabilitation Potential: Fair - Anticipated Interventions Patient/Client Instruction: Educate patient on: Condition, Plan of Care For the Purpose of:: To decrease pain, To increase ROM, To improve nutrient delivery to tissue, To improve ability of physical actions for home/community/work/leisure Therapeutic Exercise to Include: Strength training, Flexibilty training, Passive ROM, Active ROM For the Purpose of:: To decrease pain, To increase ROM Manual Therapy Techniques to Include: Mobilization, Soft tissue mobilization For the Purpose of:: To decrease pain, To increase ROM, To improve nutrient delivery to tissue Thermo therapy (hot pack): Yes For the Purpose of:: To improve nutrient delivery to tissue Thank you for the opportunity to evaluate your patient. For Medicare and Medicare HMO plans, please review the plan of care and approve it. It will need to be FAXED BACK to us at [phone] for Medicare purposes. Please let me know if there are questions or concerns regarding this plan of care. Physician Signature: _Date: <Electronically signed by Chester Christine DPT, OCS, CSCS> 11/13/17 0645 CC: Mirella Mccracken DO EBG Signed For Medicare only, by signing this I certify the plan of care. Physicians Signature Date Mirella Mccracken Start: 10-15-2017 End: 10-15-2017 Femur Min 2 Views Comments: See Note; NOTES: [facility] Imaging Services [address] [place] [address] Femur Min 2 Views MR#: [id number] Acct: [id number] Name: AGUSTIN GARCIA Rep #: [id number] : 1940 F 77 From: Edward Jha MD PCP: Mirella Mccracken DO Status: REG CLI Study: Femur Min 2 Views Date of Exam: 10/15/17 Exam# [id number] Ordering Dr: Mirella Mccracken DO STUDY: X-RAY - LEFT FEMUR REASON FOR STUDY: Female, 77 years old. Pain. No history of trauma. TECHNIQUE: Radiological exam, femur, minimum 2 views COMPARISON: None. FINDINGS: Normal visualized femur. Normal visualized soft tissue structure. There are atherosclerotic vascular calcifications. RAD/Femur Min 2 Views IMPRESSION: Normal x-ray examination of the femur. Electronically Signed: Edward Jha MD at 15:48 EST Tel [phone], Service support , CC: Mirella Mccracken DO Ladle Cleaner: Signed Mirella Mccracken Work Phone: Start: 10-15-2017 End: 10-15-2017 Hip 2-3 Views with Pelvis Comments: See Note; NOTES: [facility] Imaging Services [address] [place] [address] Hip 2-3 Views with Pelvis MR#: [id number] Acct: [id number] Name: AGUSTIN GARCIA Rep #: [id number] : 1940 F 77 From: Edward Jha MD PCP: Mirella Mccracken DO Status: REG CLI Study: Hip 2-3 Views with Pelvis Date of Exam: 10/15/17 Exam# [id number] Ordering Dr: Mirella Mccracken DO STUDY: X-RAY - PELVIS AND LEFT HIP REASON FOR EXAM: Female, 77 years old. Hip pain. No history of trauma. TECHNIQUE: Radiological exam, hip, unilateral, with pelvis when performed; 2 or 3 views. COMPARISON: None. FINDINGS: There is a non-specific bowel gas pattern. A battery pack from a stimulator device is seen overlying the right iliac bone. The electrode is seen overlying the left sacral wing. There is narrowing with cortical sclerosis and osteophyte formation of the sacroiliac joint consistent with degenerative osteoarthritic changes. Normal bilateral superior and inferior pubic rami. There are degenerative changes of the pubic symphysis with articular narrowing and sclerosis. Normal bilateral ischial tuberosities. Normal visualized femoral head. Normal acetabulum. There is mild articular joint space narrowing of the hip. Status post right total hip replacement. IMPRESSION: Status post right total hip replacement. Degenerative changes of the left hip joint. Electronically Signed: Edward Jha MD at 15:54 EST Tel [phone], Service support , STUDY: X-RAY - PELVIS REASON FOR EXAM: Female, 77 years old. Hip pain. TECHNIQUE: One view of the pelvis was obtained. COMPARISON: None. FINDINGS: There is a non-specific bowel gas pattern. A stimulator device is seen overlying the right iliac bone. The electrode is overlying the left sacral wing. There is narrowing with cortical sclerosis and osteophyte formation of the sacroiliac joint consistent with degenerative osteoarthritic changes. Normal visualized bilateral superior and inferior pubic rami. Normal pubic symphysis. Normal ischial tuberosities. The patient is status post right total hip replacement. Normal visualized left femoral head. Normal left acetabulum. There is mild articular joint space narrowing of the left hip. 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 Electronically Signed: Edward Jha MD at 15:55 EST Tel [phone], Service support , CC: Mirella Mccracken DO Ladle Cleaner: Signed Mirella Mccracken Work Phone: Start: 06-05-2017 End: 06-05-2017 Follow Up Appt 6 months Jose Vargas MD Start: 06-05-2017 End: 06-05-2017 [facility] Jose Vargas MD Start: 03-26-2017 End: 03-26-2017 Ribs Uni Min 3V w/PA Chest Comments: See Note; NOTES: [facility] Imaging Services [address] [place] [address] Radha 4d Ribs Uni Min 3V w/PA Chest MR#: [id number] Acct: [id number] Name: AGUSTIN GARCIA Rep #: [id number] : 1940 F 76 From: Tomas Pat MD PCP: Mirella Mccracken DO Status: REG CLI Study: Ribs Uni Min 3V w/PA Chest Date of Exam: 03/26/17 Exam# [id number] Ordering Dr: Stephenie Burkett MD STUDY: X-RAY - UNILATERAL RIBS ( RIGHT ) WITH CHEST REASON FOR EXAM: Female, 76 years old. Pain after a fall. TECHNIQUE - RIBS: 4 view(s) of the ribs. TECHNIQUE - CHEST: Single frontal view of the chest. COMPARISON: 05/26/2015. FINDINGS - RIBS: Normal visualized ribs without a demonstrated fracture. FINDINGS - CHEST: There is hyperinflation of the lungs consistent with chronic obstructive lung disease (COPD). There is no demonstrated pleural abnormality. Sternal cerclage wires and vascular clips are present from a prior sternotomy and coronary artery bypass graft procedure (CABG). Normal mediastinum and karthik. Normal visualized pulmonary arteries. Normal visualized aortic arch and descending thoracic aorta. Normal visualized thoracic spine. Previous cervical spine surgery. Normal visualized ribs, clavicles, and shoulders. There is no demonstrated abnormality of the visualized soft tissue structures of the upper abdomen. RAD/Ribs Uni Min 3V w/PA Chest IMPRESSION: RIBS: Normal x-ray examination of the ribs. CHEST: No acute chest disease. Electronically Signed: Tomas Pat MD at 16:03 EDT , Service support , CC: Stephenie Burkett MD; Mirella Mccracken DO Ladle Cleaner: Signed Stephenie Burkett Work Phone: Start: 11-13-2016 End: 11-13-2016 Kidney and Bladder Comments: See Note; NOTES: [facility] Imaging Services [address] [facility] [place] [address] Verdana 4d Kidney and Bladder MR#: [id number] Acct: [id number] Name: AGUSTIN GARCIA Rep #: [id number] : 1940 F 76 From: Mackenzie Ortega MD PCP: Mirella Mccracken DO Status: REG CLI Study: Kidney and Bladder Date of Exam: 11/13/16 Exam# [id number] Ordering Dr: Uriel Francois MD STUDY: RENAL ULTRASOUND - COMPLETE REASON FOR EXAM: Female, 76 years old. Microscopic hematuria. Prior history of bladder and kidney surgery. The patient has a pacemaker. TECHNIQUE: Ultrasound evaluation of the kidneys was performed with real-time and static dhillon-scale imaging. COMPARISON: Prior abdomen and pelvic CT exam of February 08, 2013 FINDINGS: RIGHT KIDNEY: Normal location of the right kidney. The right kidney measures 7.8 x 4.3 x 4.6 cm. There is a normal cortex of the right kidney. The renal cortex measures 1.1 cm. There is no right renal mass or cyst. There are no right renal calculi. There is no right hydronephrosis. DISTAL RIGHT URETER: There is non-visualization of the distal right ureter. There is no demonstrated right ureterovesical junction calculus. There is no demonstrated right ureteral jet. LEFT KIDNEY: Normal location of the left kidney, which is normal in size. The left kidney measures 9.1 x 3.5 x 3.9 cm. There is a normal cortex of the left kidney. The renal cortex measures 1.2 cm. 8 mm cyst of the upper pole There are no left renal calculi. There is mild hydronephrosis of the left kidney. DISTAL LEFT URETER: There is non-visualization of the distal left ureter. There is no demonstrated left ureterovesical junction calculus. There is no demonstrated left ureteral jet. BLADDER: Nondistended urinary bladder There is a normal wall thickness of the nondistended urinary bladder. There is no demonstrated mass within the urinary bladder. There are no demonstrated bladder calculi. US/Kidney and Bladder IMPRESSION: The length of the right kidney measures less than normal; however, the kidney is probably undermeasured. Normal cortical thickness. No hydronephrosis or demonstrated stones. Left kidney measures at the lower limits of normal. Normal cortical thickness. Mild hydronephrosis. Mild hydronephrosis of the left kidney was also visualized on a prior abdomen and pelvic CT exam of February 08, 2013. A subcentimeter cyst of the upper pole of the left kidney is identified. This may be focal caliectasis in stead. No upper pole cyst was identified on the prior CT exam. Nondistended urinary bladder. Electronically Signed: Mackenzie Ortega MD at 16:03 EST , Service support [phone], CC: Uriel Francois MD; Mirella Mccracken DO Ladle Cleaner: Signed Mirella Mccracken Start: 11-03-2016 End: 11-03-2016 Follow Up Appt 9 months Zaria Trevino PA-C Work Phone: Start: 11-03-2016 End: 11-03-2016 [facility] Zaria Trevino PA-C Work Phone: Start: 07-07-2016 End: 07-07-2016 Breast Limited Unilateral Comments: See Note; NOTES: [facility] Imaging Services [address] [place] [address] Verdana 4d Breast Limited Unilateral MR#: [id number] Acct: [id number] Name: AGUSTIN GARCIA Rep #: [id number] : 1940 F 76 From: Edward Jha MD PCP: Mirella Mccracken DO Status: REG CLI Study: Breast Limited Unilateral Date of Exam: 07/07/16 Exam# [id number] Ordering Dr: Mirella Mccracken DO STUDY: ULTRASOUND BREAST - RIGHT REASON FOR EXAM: Female, 76 years old. Palpable lump in the right breast. TECHNIQUE: Axial and longitudinal images of the RIGHT breast were performed with a high resolution ultrasound transducer. COMPARISON: Comparison is made with prior mammogram done earlier in the day. FINDINGS: RIGHT Breast: The upper outer quadrant of the right breast was examined. No solid or cystic mass lesion is seen. US/Breast Limited Unilateral IMPRESSION: Unremarkable sonographic examination. ASSESSMENT CATEGORY: BIRADS Category 1: Negative. A letter regarding these results will be sent to the patient by the facility within 30 days. Electronically Signed: Edward Jha MD at 15:23 EDT Tel [phone], Service support [phone], CC: Mirella Mccracken DO Ladle Cleaner: Signed Mirella Mccracken Work Phone: Start: 07-07-2016 End: 07-07-2016 Unilat Rt Diag Digital AND CAD Comments: See Note; NOTES: [facility] Imaging Services [address] [place] [address] Verdana 4d Unilat Rt Diag Digital AND CAD MR#: [id number] Acct: [id number] Name: AGUSTIN GARCIA Rep #: [id number] : 1940 F 76 From: Edward Jha MD PCP: Mirella Mccracken DO Status: REG CLI Study: Unilat Rt Diag Digital AND CAD Date of Exam: 07/07/16 Exam# [id number] Ordering Dr: Mirella Mccracken DO MAMMOGRAPHY - UNILATERAL DIAGNOSTIC: RIGHT BREAST REASON FOR EXAM: Female, 76 years old. Palpable abnormality in the right breast. PERTINENT HISTORY: Sister with breast cancer. TECHNIQUE: Digital unilateral breast enedelia (3D mammographic acquisition) in the CC and MLO projections. 2-D mediolateral oblique (MLO) and craniocaudad (CC) views of both breasts were obtained. CAD: Full Field Digital Mammography with Computer Added Detection was performed. COMPARISON: Comparison is made with prior study dated November 13, 2015 and October 19, 2014. FINDINGS: Breast Composition: The breasts are almost entirely fatty. There are no dominant masses or suspicious calcifications. No other significant abnormalities are identified. There has been no significant change since the prior study. BI/Unilat Rt Diag Digital AND CAD IMPRESSION: Stable unilateral diagnostic mammogram. With the patient's history of a palpable abnormality in the right breast, correlation with ultrasound is recommended. ASSESSMENT CATEGORY: BIRADS Category 0: Incomplete. Need additional imaging evaluation. A letter regarding these results will be sent to the patient by the facility within 30 days. Approximately 10% of breast cancers are not detected by mammography. A normal mammogram should not delay biopsy of a clinically suspicious abnormality. Electronically Signed: Edward Jha MD at 15:21 EDT Tel [phone], Service support [phone], CC: Mirella Mccracken DO Ladle Cleaner: Signed Mirella Mccracken Work Phone: Start: 05-21-2016 End: 05-22-2016 Foot min 3 Views Comments: See Note; NOTES: [facility] Imaging Services [address] [place] [address] Verdana 4d Foot min 3 Views MR#: [id number] Acct: [id number] Name: AGUSTIN GARCIA Rep #: [id number] : 1940 F 76 From: Edward Jha MD PCP: Mirella Mccracken DO Status: REG CLI Study: Foot min 3 Views Date of Exam: 05/21/16 Exam# [id number] Ordering Dr: Mirella Mccracken DO STUDY: X-RAY - LEFT FOOT CLINICAL: Female, 76 years old. Continued pain following recent amputation. TECHNIQUE: 3 view(s) of the foot. COMPARISON: None. FINDINGS: There is a plantar calcaneal spur. Normal visualized subtalar, talonavicular, calcaneocuboid, tarsal and tarsometatarsal articulations. Normal metatarsi. There is degenerative arthrosis of the metatarsophalangeal joint of the hallux . Normal tibial and fibular sesamoid bones. Normal interphalangeal joint of the great toe. Normal phalanges of the great toe. 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 Normal interphalangeal joints and phalanges of the lesser toes. Soft tissue swelling. 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 Soft tissue swelling. Electronically Signed: Edward Jha MD at 9:42 EDT Tel [phone], Service support [phone], CC: Mirella Mccracken DO Ladle Cleaner: Signed Mirella Mccracken Work Phone: Start: 05-07-2016 End: 05-07-2016 Follow Up Appt 6 months Jose Vargas MD Start: 05-07-2016 End: 05-07-2016 MMClara Vargas MD Start: 01-04-2016 End: 01-04-2016 Ecg routine ecg w/least 12 lds w/i&r [MEASUREMENTS ANALYSIS] Date of Test: 01/04/2016 10:09:41; Heart Rate: 59; ID Interval: 158; QRS: 88; QT Interval: 432; Corrected QT Interval (QTc): 431; P Wave [place]: 32; QRS Wave [place]: 10; T Wave [place]: 47; Blood Pressure: 110/64 [ECG DIAGNOSTIC STATEMENTS] Date of Test: 01/04/2016 10:09:41; Summary: Sinus Bradycardia WITHIN NORMAL LIMITS Mirella Mccracken Work Phone: Comment on above: sinus elin no acute chg Start: 11-29-2015 End: 11-29-2015 Carotid Duplex Ultrasound Comments: See Note; NOTES: [facility] Cardiovascular Services [address] [place] [address] Carotid Duplex Ultrasound 11/20/15 1035 MR#: [id number] Acct: [id number] Name: AGUSTIN GARCIA Rep #: [id number] : 1940 75 From: Miko Cutler MD Attending Dr: Zaria Bustamante Status: REG CLI Ordering Dr: Zaria Bustamante PA Date: 11/20/15 Location: [facility] Sex: F C Admitted: Reason For Study: bruit Rt. Velocities/BP Lt. Velocities/BP Prox CCA 76.8/18.8 cm/sec. Prox CCA 67.4/19.3 cm/sec. Mid CCA 75.6/19.9 cm/sec. Mid CCA 66.8/21.7 cm/sec. Dist CCA 68.6/17.6 cm/sec. Dist CCA 75.0/22.3 cm/sec. Prox ICA 44.0/14.7 cm/sec. Prox ICA 66.8/21.7 cm/sec. Mid ICA 66.8/25.2 cm/sec. Mid ICA 80.3/30.5 cm/sec. Dist ICA 63.9/17.6 cm/sec. Dist ICA 52.7/20.2 cm/sec. Rt. ICA/CCA = .9. Lt. ICA/CCA = 1.2. Prox ECA 90.3/10.6 cm/sec. Prox ECA 90.9/9.97 cm/sec. Rt. Vert. 26.4/9.38 cm/sec. Lt. Vert. 52.2/17.6 cm/sec. Right Extracranial There is heterogeneous, smooth atherosclerotic plaque noted in the right common carotid artery. There is heterogeneous, irregular atherosclerotic plaque noted in the right internal carotid artery. There is intimal thickening but no significant atherosclerotic plaque noted in the right external carotid artery. Antegrade flow is noted in the right vertebral artery. Left Extracranial There is heterogeneous, smooth atherosclerotic plaque noted in the left common carotid artery. There is heterogeneous, irregular atherosclerotic plaque noted in the left internal carotid artery. There is intimal thickening but no significant atherosclerotic plaque noted in the left external carotid artery. Antegrade flow is noted in the left vertebral artery. Procedure Carotid Duplex [id number]. The exam was diagnostic. Exam performed in department. Interpretation Summary Mild (<50%) stenosis right extracranial internal carotid. Mild (<50%) stenosis left extracranial internal carotid. Flow within the vertebral arteries is antegrade bilaterally. Ordering Physician: Zaria Bustamante Referring Physician: Mirella Mccracken M.D. Performed By: Dilshad Russo RVT 11/29/15 1556 Date Miko Cutler MD CC: Mirella Mccracken DO; Zaria Bustamante Date Dictated: 11/20/15 1035 Date Transcribed: 11/29/15 [id number] Ladle Cleaner: Signed Mirella Mccracken Start: 11-13-2015 End: 11-13-2015 Bilat Scrn Digital AND CAD Comments: See Note; NOTES: [facility] Imaging Services [address] [place] [address] Verdana 4d Bilat Scrn Digital AND CAD MR#: [id number] Acct: [id number] Name: AGUSTIN GARCIA Rep #: [id number] : 1940 F 75 From: Edward Jha MD PCP: Mirella Mccracken DO Status: REG CLI Study: Bilat Scrn Digital AND CAD Date of Exam: 11/13/15 Exam# [id number] Ordering Dr: Mirella Mccracken DO MAMMOGRAPHY - BILATERAL SCREENING REASON FOR EXAM: Female, 75 years old. Routine annual screening examination. PERTINENT HISTORY: Sister with breast cancer. TECHNIQUE: Digital examination. Mediolateral oblique (MLO) and craniocaudad (CC) views of both breasts were obtained. CAD: CAD was performed on this study. COMPARISON: Comparison is made with prior study dated October 19, 2014. FINDINGS: Breast Composition: The breasts are almost entirely fatty. There are no dominant masses or suspicious calcifications. There is a stable 7.5 mm x 6 mm partially calcified nodule in the deep mid slightly lateral aspect of the left breast. This is unchanged. No other significant abnormalities are identified. There has been no significant change since the prior study. IMPRESSION: Stable bilateral screening mammogram. Yearly follow-up mammogram recommended. (A) ASSESSMENT CATEGORY: BIRADS Category 2: Benign. A letter regarding these results will be sent to the patient by the facility within 30 days. Approximately 10% of breast cancers are not detected by mammography. A normal mammogram should not delay biopsy of a clinically suspicious abnormality. [id number] Electronically Signed: Edward Jha MD at 14:46 EST Tel [phone], Service support [phone], CC: Mirella Mccracken DO Ladle Cleaner: Signed Mirella Mccracken Work Phone: Start: 11-05-2015 End: 10-23-2016 Carotid duplex Zaria Trevino PA-C Work Phone: Start: 11-05-2015 End: 11-05-2015 Follow Up Appt 6 months Zaria Trevino PA-C Work Phone: Start: 11-05-2015 End: 11-05-2015 Follow Up Appt Other Zaria Trevino PA-C Work Phone: Start: 11-05-2015 End: 11-05-2015 PFM Zaria Trevino PA-C Work Phone: Start: 06-07-2015 End: 06-07-2015 Spine Cervical without Contras Comments: See Note; NOTES: [facility] Imaging Services [address] [place] [address] CAT Scan Report MR#: [id number] Acct: [id number] Name: AGUSTIN GARCIA Clara Rep #: [id number] : 1940 F 75 From: Otoniel Tam MD PCP: Mirella Mccracken DO Status: REG CLI Study: Spine Cervical without Contras Date of Exam: 06/07/15 Exam# [id number] Ordering Dr: Louis Tsang STUDY: CT CERVICAL SPINE WITHOUT CONTRAST REASON FOR EXAM: Female, 75 years old. Neck pain, post fusion 20 years ago RADIATION DOSAGE (If Supplied By Facility): CTDIvol = ( 30.47 ) mGy, DLP = ( 452.02 ) mGycm TECHNIQUE: High resolution transaxial imaging was performed without contrast material. Sagittal and coronal images were reconstructed. COMPARISON: None FINDINGS: Normal craniovertebral junction. Normal anterior atlantoaxial articulation. Normal odontoid process. There is straightening of the normal cervical lordosis. Status post intervertebral body fusion C5-C7. C2-3: Normal endplates. Normal disc height and morphology. Normal central canal and intervertebral neuroforamina. C3-4: Mild disc space narrowing and mild right neural foraminal stenosis secondary to apophyseal joint hypertrophy. No significant disc bulge or central canal stenosis. C4-5: Moderate to severe disc space narrowing and moderate endplate spondylosis. Moderate bilateral neural foraminal stenosis secondary to uncovertebral and apophyseal joint hypertrophy. There is a 3 mm paracentral posterior osteophytic spur. No significant central canal stenosis. C5-6: Status post intervertebral body fusion. No significant neuroforaminal stenosis. C6-7: Status post interbody fusion with no significant neural foraminal or central canal stenosis. Moderate right apophyseal joint hypertrophy. C7-T1: Normal endplates. Normal disc height and morphology. Normal central canal and intervertebral neuroforamina. Normal visualized soft tissue structures. IMPRESSION: No acute fracture or subluxation. Status post interbody fusion C5-C7. C4-5: Moderate to severe disc space narrowing and moderate endplate spondylosis. Moderate bilateral neural foraminal stenosis secondary to uncovertebral and apophyseal joint hypertrophy. There is a 3 mm paracentral posterior osteophytic spur. No significant central canal stenosis. If the patient's clinical findings warrant, a follow-up MRI CERVICAL spine would be recommended. Electronically Signed: Otoniel Tam MD at 16:59 EDT , Service support [phone], CC: Mirella Mccracken DO; LOUIS TSANG Ladle Cleaner: Signed Mirella Mccracken Start: 05-22-2015 End: 05-23-2015 Spine Lumbar without Contrast Comments: See Note; NOTES: [facility] Imaging Services [address] [place] [address] CAT Scan Report MR#: [id number] Acct: [id number] Name: AGUSTIN GARCIA Rep #: [id number] : 1940 F 75 From: Ruddy Pozo MD PCP: Mirella Mccracken DO Status: REG CLI Study: Spine Lumbar without Contrast Date of Exam: 05/22/15 Exam# [id number] Ordering Dr: Louis Tsang STUDY: CT LUMBAR SPINE WITHOUT CONTRAST REASON FOR EXAM: Female, 75 years old. Lower back pain RADIATION DOSAGE (If Supplied By Facility): CTDIvol = ( 60.92 ) mGy, DLP = ( 1530.06 ) mGycm TECHNIQUE: The patient was scanned in a multi detector CT scanner. High resolution transaxial imaging was performed. Images were obtained from to . Sagittal and coronal images were reconstructed. COMPARISON: None FINDINGS: Normal lumbar lordosis. There is no substantial scoliosis. Normal vertebrae of the lumbar spine. L1-2: Normal endplates. Normal disc height and morphology. Normal bilateral facet joints. Normal central canal and bilateral lateral recesses. Normal bilateral intervertebral neural foramina. L2-3: Normal endplates. Normal disc height and morphology. Normal bilateral facet joints. Normal central canal and bilateral lateral recesses. Normal bilateral intervertebral neural foramina. L3-4: There is a small circumferential disc bulge results in mild narrowing of the spinal canal and neural foramina. L4-5: There is a broad-based disc herniation more prominent on the right side impinging on the right L5 nerve root. There is moderate narrowing of neural foramina. L5-S1: There is a left disc osteophyte bulge impinging on the left S1 nerve root. There is mild narrowing of left neural foramen. Incidental note is made of moderate left-sided hydronephrosis. It may be due to chronic ureteropelvic junction obstruction. Normal visualized paraspinous soft tissue structures. IMPRESSION: Broad-based disc cage at L4-5 more prominent on the right side on the right L5 nerve root. Left disc osteophyte bulge at L5-S1 impinging the left S1 nerve root. Incidental note is made of moderate left-sided hydronephrosis. It may be due to chronic ureteropelvic junction obstruction. Electronically Signed: Juan Carlos Pozo MD at 10:05 EDT Tel , Service support [phone], CC: Mirella Mccracken DO; LOUIS TSANG Ladle Cleaner: Signed Mirella Mccracken Start: 05-09-2015 End: 05-10-2015 Documentation of current medications Jose Vargas MD Start: 05-09-2015 End: 05-09-2015 Follow Up Appt 6 months Jose Vargas MD Start: 05-09-2015 End: 10-23-2016 Follow Up Appt Other Jose Vargas MD Start: 05-09-2015 End: 05-09-2015 MMM Jose Vargas MD Start: 04-26-2015 End: 04-26-2015 Brain/Head W/WO Contrast Comments: See Note; NOTES: [facility] Imaging Services [address] [place] [address] CAT Scan Report MR#: [id number] Acct: [id number] Name: AGUSTIN GARCIA Rep #: [id number] : 1940 F 74 From: Edward Jha MD PCP: Mirella Mccracken DO Status: REG CLI Study: Brain/Head W/WO Contrast Date of Exam: 04/26/15 Exam# [id number] Ordering Dr: Mirella Mccracken DO STUDY: CT BRAIN WITH AND WITHOUT CONTRAST REASON FOR EXAM: Female, 74 years old. History of memory loss. RADIATION DOSAGE (If Supplied By Facility): CTDIvol = ( 65.88 ) mGy, DLP = ( 2155.79 ) mGycm TECHNIQUE: Transaxial CT imaging of the brain was performed pre and post contrast administration. The examination was performed with intravenous administration of 50 ml of Isovue 370 contrast material. COMPARISON: Comparison is made with prior examination dated September 08, 2014. FINDINGS: Normal soft tissue structures. There is hyperostosis frontalis internus. Normal size ventricles and extra-axial spaces for the patient's age. Normal white matter tracts of the cerebral hemispheres. Normal basal ganglia and thalami. Normal brainstem. Normal cerebellum. There is no intracranial hemorrhage. There are no findings of an acute ischemic infarction. There is atherosclerotic calcification of the vertebral arteries as well as the cavernous portions of the internal carotid arteries bilaterally. Normal visualized paranasal sinuses. IMPRESSION: Normal unenhanced and enhanced CT scan of the brain. No acute abnormality is seen. Electronically Signed: Edward Jha MD at 12:51 EDT Tel [phone], Service support [phone], CC: Mirella Mccracken DO Ladle Cleaner: Signed Mirella Mccracken Work Phone: Start: 10-24-2014 End: 10-24-2014 Breast Complete Unilateral Comments: See Note; NOTES: [facility] Imaging Services [address] [place] [address] Ultrasound Report MR#: [id number] Acct: [id number] Name: AGUSTIN GARCIA Rep #: [id number] : 1940 F 74 From: Edward Jha MD PCP: Mirella Mccracken DO Status: REG CLI Study: Breast Complete Unilateral Date of Exam: 10/24/14 Exam# [id number] Ordering Dr: Mirella Mccracken DO STUDY: ULTRASOUND BREAST - LEFT REASON FOR EXAM: Female, 74 years old. Abnormal screening mammogram. TECHNIQUE: Axial and longitudinal images of the LEFT breast were performed with a high resolution ultrasound transducer. COMPARISON: Comparison is made with prior mammogram dated October 19, 2014. FINDINGS: LEFT Breast: There is a 5 mm x 4 mm x 4 mm hypoechoic solid nodule with calcifications at the 3:00 position of the breast and 1 cm from the nipple. This corresponds to the mammographic findings and most likely represents a calcifying fibroadenoma. IMPRESSION: Findings suggestive of a calcifying fibroadenoma at the 3:00 position of the breast a 1 cm from the nipple. ASSESSMENT CATEGORY: BIRADS Category 2: Benign. A letter regarding these results will be sent to the patient by the facility within 30 days. Electronically Signed: Edward Jha MD at 11:15 EST Tel [phone], Service support [phone], CC: Mirella Mccracken DO Ladle Cleaner: Signed Mirella Mccracken Work Phone: Start: 10-24-2014 End: 10-25-2014 Dexa Bone Density Study (HP) Comments: See Note; NOTES: [facility] Imaging Services [address] [place] [address] Bone Density Report MR#: [id number] Acct: [id number] Name: AGUSTIN GARCIA Rep #: [id number] : 1940 F 74 From: Edward Jha MD PCP: Mirella Mccracken DO Status: [facility] Study: Dexa Bone Density Study (HP) Date of Exam: 10/24/14 Exam# [id number] Ordering Dr: Mirella Mccracken DO STUDY: DUAL ENERGY X-RAY ABSORPTIOMETRY / DXA REASON FOR EXAM: Female, 74 years old. Early menopause. TECHNIQUE: Bone Mineral Density (BMD) measurements of lumbar spine and left hip were obtained. COMPARISON: None. FINDINGS: Lumbar Spine (L1-L4): g/cm2 (0.779) / T-score (-3.5) / Z-score (-1.7) Findings are suggestive of osteoporosis with a high fracture risk. Left Femur Total: g/cm2 (0.698) / T-score (-2.5) / Z-score (-0.7) Left Femoral Neck: g/cm2 (0.709) / T-score (-2.4) / Z-score (-0.4) IMPRESSION: The patient is considered osteoporotic as outlined below according to World [employer]bra[employer] Organization (WHO) criteria with a high fracture risk. Reference Information: The T-score is the number of standard deviations above or below the standard which is normal for young adults at their peak bone mineral density. The World Health Organization (WHO) interprets the T-scores as follows: Above -1 Normal bone density Between -1 and -2.5 Osteopenia Equal to / or below -2.5 Osteoporosis As a practical clinical guideline, osteopenia may be graded as follows: Mild -1 through -1.5 Moderate -1.6 through -2.0 Severe -2.1 through -2.4 The Z-score is the number of standard deviations above or below age-matched controls. A Z-score of less than -1.5 would be considered abnormal. References: 1. NIH Osteoporosis and Related Bone Diseases http://www.osteo.org 2. International Society for Clinical Densitometry http://www.iscd.org 3. National Osteoporosis Foundation http://www.nof.org Electronically Signed: Edward Jha MD at 10:14 EST Tel [phone], Service support [phone], CC: Mirella Mccracken DO Ladle Cleaner: Signed Mirella Mccracken Work Phone: Start: 10-19-2014 End: 10-20-2014 Bilat Scrn Digital AND CAD Comments: See Note; NOTES: [facility] Imaging Services [address] [place] [address] Breast Imaging Report MR#: [id number] Acct: [id number] Name: AGUSTIN GARCIA Rep #: [id number] : 1940 F 74 From: Edward Jha MD PCP: Mirella Mccracken DO Status: REG CLI Study: Bilat Scrn Digital AND CAD Date of Exam: 10/19/14 Exam# [id number] Ordering Dr: Mirella Mccracken DO MAMMOGRAPHY - BILATERAL SCREENING REASON FOR EXAM: Female, 74 years old. Routine annual screening examination. PERTINENT HISTORY: Non-contributory. TECHNIQUE: Digital examination. Mediolateral oblique (MLO) and craniocaudad (CC) views of both breasts were obtained. CAD: CAD was performed on this study. COMPARISON: None. Baseline examination. FINDINGS: Breast Composition: The breasts are almost entirely fatty. There is a 7.5 mm x 6 mm partially calcified nodule in the mid slightly upper aspect of the left breast. This may represent a calcifying fibroadenoma. Correlation with ultrasound is recommended. No other significant abnormalities are identified. IMPRESSION: Partially calcified nodule in the left breast as described. Correlation with ultrasound is recommended. ASSESSMENT CATEGORY: BIRADS Category 0: Incomplete. Need additional imaging evaluation. A letter regarding these results will be sent to the patient by the facility within 30 days. Approximately 10% of breast cancers are not detected by mammography. A normal mammogram should not delay biopsy of a clinically suspicious abnormality. Electronically Signed: Edward Jha MD at 13:38 EST Tel [phone], Service support [phone], CC: Mirella Mccracken DO Ladle Cleaner: Signed Mirella Mccracken Work Phone: Start: 10-10-2014 End: 10-11-2014 Documentation of current medications Zaria Trevino PA-C Work Phone: Start: 10-10-2014 End: 10-10-2014 Electrocardiogram, complete Zaria Trevino PA-C Work Phone: Start: 10-10-2014 End: 10-10-2014 Follow Up Appt 6 months Zaria Trevino PA-C Work Phone: Start: 10-10-2014 End: 10-23-2016 Follow Up Appt Other Zaria Trevino PA-C Work Phone: Start: 10-10-2014 End: 10-10-2014 PFM Zaria Trevino PA-C Work Phone: Start: 09-08-2014 End: 09-11-2014 Brain/Head W/WO Contrast Comments: See Note; NOTES: [facility] Imaging Services [address] [place] [address] CAT Scan Report MR#: [id number] Acct: [id number] Name: AGUSTIN GARCIA Rep #: [id number] : 1940 F 74 From: Audie Hugo MD PCP: Mirella Mccracken DO Status: REG CLI Study: Brain/Head W/WO Contrast Date of Exam: 09/08/14 Exam# [id number] Ordering Dr: Mirella Mccracken DO STUDY: CT BRAIN WITH AND WITHOUT CONTRAST REASON FOR EXAM: Female, 74 years old. Headaches, basal cell carcinoma RADIATION DOSAGE (If Supplied By Facility): CTDIvol = ( 58.35 ) mGy, DLP = ( 1911.02 ) mGycm TECHNIQUE: Transaxial CT imaging of the brain was performed pre and post contrast administration. The examination was performed with intravenous administration of 50 ml of Isovue 370 contrast material. COMPARISON: 06/20/13 FINDINGS: Normal soft tissue structures. There is hyperostosis frontalis internus. Normal size ventricles and extra-axial spaces for the patient's age. Normal white matter tracts of the cerebral hemispheres. Normal basal ganglia and thalami. Normal brainstem. Normal cerebellum. There is no intracranial hemorrhage. There are no findings of an acute ischemic infarction. There is mucoperiosteal inflammatory disease of the paranasal sinuses consistent with mild chronic sinusitis. No suspicious enhancing lesion IMPRESSION: Age consistent changes, no acute hemorrhage or suspicious enhancing lesion Paranasal sinusitis Electronically Signed: To Hugo MD at 8:17 EST Tel [phone], Service support [phone], CC: Mirella Mccracken DO Ladle Cleaner: Signed Mirella Mccracken Work Phone: Start: 07-27-2014 End: 07-27-2014 History and Physical Exam Comments: See Note; NOTES: [facility] Medical Records Department [address] [place] [address] History and Physical 07/27/14 0753 MR#: [id number] Acct: [id number] Name: AGUSTIN GARCIA Rep #: [id number] : 1940 74 From: Nella Howard PCP: Mirella Mccracken DO Status: PRE [facility] Location: [facility] DATE OF SERVICE: 07/28/2014 PREOPERATIVE DIAGNOSIS: Painful hammertoe, right second and fourth toes. 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 SURGEON: Nella Howard D.P.M. ANESTHESIA: MAC with local. ALLERGIES: THE PATIENT ADMITS ALLERGY TO VICODIN AND SULFA MEDICATIONS RESULTING IN A RASH. MEDICATIONS: See chart. The patient is known to me from my private office. 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 The patient had presented recently stating that she wished to have toes 2 and 4 of the right foot amputated. When she had presented, she had pads around the toes and mole skin for spacing options and to help reduce friction. The toes are semi-rigidly contracted and are rubbing against the adjacent toes. She states she is very active 74-year-old and would like the toes removed as they were constantly blistering and forming wounds from rubbing. She walks every day for exercise. We have discussed other treatment options including further padding. The patient had declined stating she had tried multiple pad including soft cotton foam, gel spacers and mole skin. She had also stated that she is not interested in other surgical interventions that were suggested including arthroplasty or arthrodesis in an effort to try to correct the toe position. The patient had stated she did not as well wish to have the toes partially amputated as I'm 74 years old and wants to remain active, I know what I want and I want these toes taken off, so I can get back to my activity as usual. I had discussed with the patient risks, complications, benefits, alternative treatments in detail. The patient understands possibility for slow healing, nonhealing and shifting of remaining toes and the patient states she understands and would like to go ahead with the procedure. The patient shows no sign of respiratory compromise. She is scheduled to undergo outpatient surgical intervention at [facility] on July 28, 2014. Pedal pulses are easily palpable bilaterally and consent was reviewed, signed and placed in chart. Nella Howard DPM T: NTS JOB: [id number] 07/27/14 1156 <Electronically signed by Nella Howard > Date: Time: Nella Howard CC: Mirella Mccracken DO; Nella Howard DPM Date Dictated: 07/27/14752 Date Transcribed: 07/27/14752 Ladle Cleaner: Signed ____ I have re-examined the patient. There are no clinical changes since date of exam. ____ See Progress Notes for Changes ____ Dictated on Admission Date: Time: Signature: Mirella Mccracken Start: 04-10-2014 End: 04-10-2014 Follow Up Appt 6 months Jose Vargas MD Start: 04-10-2014 End: 04-10-2014 Follow Up BP Check Jose Vargas MD Start: 04-10-2014 End: 04-10-2014 MMM Jose Vargas MD Start: 12-22-2013 End: 12-22-2013 CTA Chest W/WO Contrast Comments: See Note; NOTES: [facility] Imaging Services [address] [place] [address] CAT Scan Report MR#: [id number] Acct: [id number] Name: AGUSTIN GARCIA Rep #: [id number] : [id number] F 73 From: Edward Jha MD PCP: Status: REG CLI Study: CTA Chest W/WO Contrast Date of Exam: 12/22/13 Exam# [id number] Ordering Dr: Mirella Mccracken DO STUDY: CTA CHEST REASON FOR EXAM: Female, 73 years old. Left-sided chest pain. RADIATION DOSAGE (If Supplied By Facility): CTDIvol = ( 16.13 ) mGy, DLP = ( 660.36 ) mGycm TECHNIQUE: The examination was performed with the intravenous administration of 75 ml of Isovue 370 contrast material. Post-processing of the angiographic images was performed, with multiplanar reformation and 3D reconstruction. COMPARISON: Comparison is made with prior study dated May 26, 2013. FINDINGS: Normal enhancement of the main pulmonary artery and right and left pulmonary arteries. Small filling defects are seen in the branches of the lobe pulmonary arterial branches more prominent on the right side. This is in keeping with the bilateral pulmonary emboli. Normal thoracic aorta and visualized great vessels. There is no demonstrated aortic dissection. Normal heart and pericardium. There are visualized mediastinal lymph nodes, which are within normal size limits, and with normal morphology. Normal hilar regions. Normal visualized trachea and bronchi. The lungs are well expanded. Normal pulmonary parenchyma. Normal pleura. Normal chest wall structures. There are degenerative changes of thoracic spine. There are small bilateral intrarenal calculi. Bilateral hydronephrosis left greater than right. Small hiatal hernia. IMPRESSION: Small filling defects are seen in the lower lobe branches of the pulmonary arteries bilaterally Electronically Signed: Edward Jha MD at 13:14 EDT Tel , Service support [phone], CC: Mirella Mccracken DO Ladle Cleaner: Signed Mirella Mccracken Work Phone: Start: 12-13-2013 End: 05-10-2015 *Hepatic Function Panel Jose Vargas MD Start: 12-13-2013 End: 05-10-2015 Lipid panel [AGGREGATE] Jose Vargas MD Start: 12-07-2013 End: 12-07-2013 Follow Up Appt Other Zaria Trevino PA-C Work Phone: Start: 12-07-2013 End: 12-07-2013 PFM Zaria Trevino PA-C Work Phone: Start: 08-08-2013 End: 08-08-2013 Follow Up Appt 4 months Zaria Trevino PA-C Work Phone: Start: 08-08-2013 End: 08-08-2013 Follow Up Appt Other Zaria Trevino PA-C Work Phone: Start: 08-08-2013 End: 08-08-2013 MMM Zaria Trevino PA-C Work Phone: Start: 08-08-2013 End: 08-08-2013 PFM Zaria Trevino PA-C Work Phone: Start: 06-20-2013 End: 06-22-2013 Brain/Head w/wo Contrast Comments: See Note; NOTES: [facility] Imaging Services [address] [place] [address] CAT Scan Report MR#: [id number] Acct: [id number] Name: AGUSTIN GARCIA Rep #: [id number] : 1940 F 73 From: Audie Hugo MD PCP: Status: REG CLI Study: Brain/Head w/wo Contrast Date of Exam: 06/20/13 Exam# [id number] Ordering Dr: Stephenie Burkett MD STUDY: CT BRAIN WITH AND WITHOUT CONTRAST REASON FOR EXAM: Female, 73 years old. Headache RADIATION DOSAGE (If Supplied By Facility): CTDIvol = ( 62.34 ) mGy, DLP = ( 1698.29 ) mGycm TECHNIQUE: Transaxial CT imaging of the brain was performed pre and post contrast administration. The examination was performed with intravenous administration of 50ml ml of Isovue 370 contrast material. COMPARISON: 10/19/12 FINDINGS: Normal soft tissue structures. There is hyperostosis frontalis internus. Normal size ventricles and extra-axial spaces for the patient's age. Normal white matter tracts of the cerebral hemispheres. Normal basal ganglia and thalami. Normal brainstem. Normal cerebellum. No suspicious enhancing lesion after contrast administration. There is no intracranial hemorrhage. There are no findings of an acute ischemic infarction. There is mucoperiosteal inflammatory disease of the paranasal sinuses consistent with mild chronic sinusitis. IMPRESSION: Age-related changes, no acute abnormality or suspicious enhancing lesion Stable mild paranasal sinusitis Signed: To Hugo M.D. June 20, 2013 at 3:17:31 PM EDT [phone] Electronically Signed BW/BW If you are the referring physician and would like to consult with the radiologist who provided this interpretation, please contact To Hugo M.D. at [phone]. If this radiologist is unavailable, you will be directed to another radiologist to assist. If you are a patient with a question regarding this report, please contact your referring physician directly. Professional Interpretation Provided By: [employer], Phone , These documents contain legally protected and confidential health information intended only for the use of the individual or entity named above. If you are not the intended recipient, you are hereby notified that any disclosure, copying, distribution, or other use of these documents is strictly prohibited. If you have received this information in error, please notify the sender immediately and arrange for the return or destruction of these documents. CC: Stephenie Burkett MD Ladle Cleaner: Signed Stephenie Burkett Work Phone: Start: 05-04-2013 End: 07-07-2013 *BMP Jose Vargas MD Start: 05-04-2013 End: 05-04-2013 Nurse, Teaching, Wound Check (no charge) Jose Vargas MD Start: 04-27-2013 End: 07-07-2013 Pulmonary Fuction Test - complete Jose Vargas MD Start: 04-19-2013 End: 04-20-2013 *BMP Jose Vargas MD Start: 04-19-2013 End: 04-20-2013 aPTT Jose Vargas MD Start: 04-19-2013 End: 04-20-2013 CBC W Auto Differential panel - Blood Jose Vargas MD Start: 04-19-2013 End: 04-20-2013 Chest x-ray Jose Vargas MD Start: 04-19-2013 End: 04-20-2013 Coagulation factor induced.INR assay in platelet poor plasma Jose Vargas MD Start: 04-19-2013 End: 04-19-2013 Electrocardiogram, complete Jose Vargas MD Start: 04-19-2013 End: 04-19-2013 Follow Up Appt Other Zaria Trevino PA-C Work Phone: Start: 04-18-2013 End: 07-07-2013 Left & Right Heart Cath W/Grafts Jose Vargas MD Start: 03-15-2013 End: 04-18-2013 Echocardiography Jose Vargas MD Start: 02-10-2013 End: 04-18-2013 Arterial exam Jose Vargas MD Start: 02-10-2013 End: 02-10-2013 Electrocardiogram, complete Jose Vargas MD Start: 02-10-2013 End: 02-10-2013 eRx Transmitted during this visit (Medicare only) Jose Vargas MD Start: 02-10-2013 End: 08-08-2013 Flecainide [Mass/volume] in Serum or Plasma Jose Vargas MD Start: 02-10-2013 End: 02-10-2013 Follow Up Appt 6 months Jose Vargas MD Start: 02-10-2013 End: 08-08-2013 Lipid panel [AGGREGATE] Jose Vargas MD Start: 02-10-2013 End: 02-10-2013 MMM Jose Vargas MD Start: 07-08-2012 End: 04-18-2013 *Hepatic Function Panel Jose Vargas MD Start: 07-08-2012 End: 07-09-2012 Electrocardiogram, complete Jose Vargas MD Start: 07-08-2012 End: 07-09-2012 Follow Up Appt 6 months Jose Vargas MD Start: 07-08-2012 End: 04-18-2013 Lipid panel [AGGREGATE] Jose Vargas MD Start: 04-23-2012 Exc arm/elbow les sc = 3 cm Alba Sargent Work Phone: Start: 04-12-2012 End: 04-12-2012 Follow Up Appt 3 months Jose Vargas MD Start: 01-06-2012 End: 04-18-2013 *Hepatic Function Panel Jose Vargas MD Start: 01-06-2012 End: 04-18-2013 24 hour holter monitor Jose Vargas MD Start: 01-06-2012 End: 01-06-2012 Electrocardiogram, complete Jose Vargas MD Start: 01-06-2012 End: 01-06-2012 Follow Up Appt 3 months Jose Vargas MD Start: 01-06-2012 End: 01-06-2012 Follow Up Appt Other Jose Vargas MD Start: 01-06-2012 End: 04-18-2013 Lipid panel [AGGREGATE] Jose Vargas MD Abdominal hysterectomy Alyson Dixon Comment on above: 1971 Abdominal hysterectomy Alyson Dixon Comment on above: 1971 Abdominal hysterectomy Alyson Dixon Comment on above: 1971 Amputation Alyson Dixon Comment on above: 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 Amputation Alyson Dixon Comment on above: 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 Amputation Alyson Dixon Comment on above: 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 Appendectomy Alyson Dixon Comment on above: 1949 Appendectomy Alyson Dixon Comment on above: 1949 Appendectomy Alyson Dixon Comment on above: 1949 Cholecystectomy Alyson richter Comment on above: 1995 Cholecystectomy Alyson richter Comment on above: 1995 Cholecystectomy Alyson richter Comment on above: 1995 Colonoscopy Alyson Dixon Comment on above: 2007 Colonoscopy Alyson Dixon Comment on above: 2007 Colonoscopy Alyson Dixon Comment on above: 2007 History of coronary artery bypass grafting Aortocoronary bypass status TRUDY YATES Work Phone: Comment on above: CABG, GALLARDO to LAD, 2 RVSV one to 1st bra nch of obtuse marginal & the other to PDA November 2011 Kidney Problems Alyson richter Comment on above: with surgery [id number] Kidney Problems Alyson richter Comment on above: with surgery [id number] Kidney Problems Alyson richter Comment on above: with surgery [id number] Ligation of fallopia n tube Alyson Dixon Comment on above: 1966 Ligation of fallopia n tube Alyson Messenger Comment on above: 1966 Ligation of fallopia n tube Alyson Messenger Comment on above: 1966 Operation on heart Alyson Boone moiserober 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 11/17/11 Operation on heart Alyson Boone senger 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 11/17/11 Operation on heart Alyson Boone senger 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 11/17/11 Operation on neck Alyson jollyer Comment on above: 09/12/15 Operation on neck Alyson turner Comment on above: 09/12/15 Operation on neck Alyson Alejo enger Comment on above: 09/12/15 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 Anita Dixon Tonsillectomy Alyson sevilla Comment on above: 1944 Tonsillectomy Alyson sevilla Comment on above: 1944 Tonsillectomy Alyson sevilla Comment on above: [address] Cl sevilla Work Phone: Plan of Treatment Date Care Activity Detail Author Start: 05-05-2019 Basic metabolic panel calcium total Metabolic Panel, Basic (61289) [facility] Work Phone: Start: 01-21-2018 Provider Instructions for Treatment [facility] Work Phone: Start: 11-24-2017 End: 11-24-2017 Appointment Appointment [facility] Work Phone: Start: 11-09-2017 Provider Instructions for Treatment Hip Bursa [facility] Work Phone: Start: 10-15-2017 Provider Instructions for Treatment Hip Bursa-L [facility] Work Phone: Start: 09-18-2017 Provider Instructions for Treatment [facility] Work Phone: Start: 06-05-2017 End: 06-05-2017 Follow Up Appt 6 months Follow Up Appt 6 months [facility] Work Phone: Start: 06-05-2017 End: 06-05-2017 MMM MMM [facility] Work Phone: Start: 05-07-2017 Provider Instructions for Treatment [facility] Work Phone: Start: 05-07-2017 Urnls dip stick/tablet reagent auto microscopy URINALYSIS, W/ MICRO (23064) [facility] Work Phone: Start: 05-07-2017 Urine albumin quantitative MICROALBUMIN: CREATININE RATIO (54461) AND (62424) [facility] Work Phone: Start: 12-25-2016 Procedure Education Eprescribed prescriptions (G8553) [facility] Work Phone: Start: 12-25-2016 Provider Instructions for Treatment [facility] Work Phone: Start: 11-03-2016 End: 11-03-2016 Follow Up Appt 9 months Follow Up Appt 9 months [facility] Work Phone: Start: 11-03-2016 End: 11-03-2016 PFM PFM [facility] Work Phone: Start: 09-25-2016 Procedure Education Eprescribed prescriptions (G8553) [facility] Work Phone: Start: 09-25-2016 Provider Instructions for Treatment [facility] Work Phone: Start: 07-02-2016 Lipid panel Lipid Panel (45832) [facility] Work Phone: Start: 06-25-2016 Provider Instructions for Treatment [facility] Work Phone: Start: 05-12-2016 End: 05-11-2015 *Hepatic Function Panel *Hepatic Function Panel [facility] Work Phone: Start: 05-12-2016 End: 05-11-2015 Lipid panel [AGGREGATE] *Lipid Profile CC PCP [facility] Work Phone: Start: 05-07-2016 End: 05-07-2016 Follow Up Appt 6 months Follow Up Appt 6 months [facility] Work Phone: Start: 05-07-2016 End: 05-07-2016 MMM MMM [facility] Work Phone: Start: 01-04-2016 Patient Education Instructions for the Patient Before and After Surgery *: instructions [facility] Work Phone: Start: 01-04-2016 Provider Instructions for Treatment [facility] Work Phone: Start: 11-29-2015 Provider Instructions for Treatment [facility] Work Phone: Start: 11-05-2015 End: 11-05-2015 Carotid duplex Carotid duplex [facility] Work Phone: Start: 11-05-2015 End: 11-05-2015 Follow Up Appt 6 months Follow Up Appt 6 months [facility] Work Phone: Start: 11-05-2015 End: 11-05-2015 Follow Up Appt Other Follow Up Appt Other [facility] Work Phone: Start: 11-05-2015 End: 11-05-2015 PFM PFM [facility] Work Phone: Start: 10-24-2015 Provider Instructions for Treatment [facility] Work Phone: Start: 10-24-2015 Blood occult fecal hgb deter ia qual feces 1-3 FECAL OCCULT- Tubes sent home (89642) [facility] Work Phone: Start: 07-26-2015 Patient Education Anxiety: emotional health [facility] Work Phone: Start: 07-26-2015 Provider Instructions for Treatment [facility] Work Phone: Start: 07-26-2015 25 hydroxy includes fractions if performed CALCIFIDIOL (87130) VIT D 25 [facility] Work Phone: Start: 07-26-2015 Urnls dip stick/tablet reagent auto microscopy URINALYSIS, W/ MICRO (87214) [facility] Work Phone: Start: 07-26-2015 Urine albumin quantitative MICROALBUMIN: CREATININE RATIO (72861) AND (08138) [facility] Work Phone: Start: 07-26-2015 Comprehensive metabolic panel METABOLIC PANEL, COMPREHENSIVE (62288) [facility] Work Phone: Start: 07-26-2015 Blood count complete auto&auto difrntl wbc CBC W/AUTO DIFF WBC (28463) [facility] Work Phone: Start: 07-26-2015 Thyrotropin Qn TSH (23350) [facility] Work Phone: Start: 07-26-2015 Lipid panel LIPID PANEL (68260) [facility] Work Phone: Start: 05-09-2015 End: 05-09-2015 Follow Up Appt 6 months Follow Up Appt 6 months [facility] Work Phone: Start: 05-09-2015 End: 10-23-2016 Follow Up Appt Other Follow Up Appt Other [facility] Work Phone: Start: 05-09-2015 End: 05-09-2015 MMM MMM [facility] Work Phone: Start: 04-26-2015 Culture bct isol&prsmptv id isolate ea urine URINE IBRAHIMA CULTURE-IDENTIFICATN (64750) [facility] Work Phone: Start: 04-19-2015 Procedure Education Eprescribed prescriptions (G8553) [facility] Work Phone: Start: 04-19-2015 Provider Instructions for Treatment [facility] Work Phone: Start: 04-19-2015 Cobalamin (Vitamin B12) mass conc VITAMIN B-12 (CYANOCOBALAMIN) (22423) [facility] Work Phone: Start: 04-19-2015 Urnls dip stick/tablet rgnt auto w/o microscopy URINALYSIS W/O MICRO (49158) [facility] Work Phone: Start: 04-19-2015 Thyrotropin Qn TSH (93455) [facility] Work Phone: Start: 04-19-2015 Urine albumin quantitative MICROALBUMIN: CREATININE RATIO (55564) AND (03865) [facility] Work Phone: Start: 04-19-2015 Comprehensive metabolic panel METABOLIC PANEL, COMPREHENSIVE (30323) [facility] Work Phone: Start: 04-19-2015 Blood count complete auto&auto difrntl wbc CBC W/AUTO DIFF WBC (07800) [facility] Work Phone: Start: 04-19-2015 Lipid panel LIPID PANEL (06093) [facility] Work Phone: Start: 04-19-2015 25 hydroxy includes fractions if performed CALCIFIDIOL (25268) VIT D 25 [facility] Work Phone: Start: 01-11-2015 Provider Instructions for Treatment [facility] Work Phone: Start: 01-11-2015 25 hydroxy includes fractions if performed Vitamin D Hydroxy (98059) [facility] Work Phone: Start: 01-11-2015 Lipid panel LIPID PANEL (27208) [facility] Work Phone: Start: 01-11-2015 Thyrotropin Qn TSH (53970) [facility] Work Phone: Start: 01-11-2015 Urnls dip stick/tablet reagent auto microscopy URINALYSIS, W/ MICRO (48235) [facility] Work Phone: Start: 01-11-2015 Urine albumin quantitative MICROALBUMIN: CREATININE RATIO (78767) AND (02343) [facility] Work Phone: Start: 01-11-2015 Comprehensive metabolic panel METABOLIC PANEL, COMPREHENSIVE (45345) [facility] Work Phone: Start: 01-11-2015 Blood count complete auto&auto difrntl wbc CBC W/AUTO DIFF WBC (55495) [facility] Work Phone: Start: 10-31-2014 Provider Instructions for Treatment *Calcium Education (KF) [facility] Work Phone: Start: 10-12-2014 Provider Instructions for Treatment [facility] Work Phone: Start: 10-10-2014 End: 10-10-2014 Electrocardiogram, complete EKG (In office) [facility] Work Phone: Start: 10-10-2014 End: 10-10-2014 Follow Up Appt 6 months Follow Up Appt 6 months [facility] Work Phone: Start: 10-10-2014 End: 10-23-2016 Follow Up Appt Other Follow Up Appt Other [facility] Work Phone: Start: 10-10-2014 End: 10-10-2014 PFM PFM [facility] Work Phone: Start: 10-09-2014 25 hydroxy includes fractions if performed Vitamin D Hydroxy (49536) [facility] Work Phone: Start: 08-31-2014 Provider Instructions for Treatment Follow up - Make appt after diagnostic tests [facility] Work Phone: Start: 08-14-2014 Provider Instructions for Treatment [facility] Work Phone: Start: 07-26-2014 Provider Instructions for Treatment [facility] Work Phone: Start: 07-25-2014 Provider Instructions for Treatment Shave Biopsy with Epi [facility] Work Phone: Start: 07-13-2014 Procedure Education Eprescribed prescriptions (G8553) [facility] Work Phone: Start: 07-13-2014 Provider Instructions for Treatment [facility] Work Phone: Start: 04-17-2014 Patient Education Bladder Infection (Cystitis): uti [facility] Work Phone: Start: 04-17-2014 Procedure Education Eprescribed prescriptions (G8553) [facility] Work Phone: Start: 04-17-2014 Provider Instructions for Treatment *UTI treatment [facility] Work Phone: Start: 04-10-2014 End: 04-10-2014 Follow Up Appt 6 months Follow Up Appt 6 months [facility] Work Phone: Start: 04-10-2014 End: 04-10-2014 Follow Up BP Check Follow Up BP Check [facility] Work Phone: Start: 04-10-2014 End: 04-10-2014 MMM MMM [facility] Work Phone: Start: 04-06-2014 Procedure Education Eprescribed prescriptions (G8553) [facility] Work Phone: Start: 04-06-2014 Provider Instructions for Treatment [facility] Work Phone: Start: 04-06-2014 Prothrombin time (PT) Coag time (PPP) PT (Prothrobim Time) (13641) [facility] Work Phone: Comment on above: inr Start: 12-30-2013 Provider Instructions for Treatment [facility] Work Phone: Start: 12-13-2013 End: 05-10-2015 *Hepatic Function Panel *Hepatic Function Panel [facility] Work Phone: Start: 12-13-2013 End: 05-10-2015 Lipid panel [AGGREGATE] *Lipid Profile CC PCP [facility] Work Phone: Start: 12-07-2013 End: 12-07-2013 Follow Up Appt Other Follow Up Appt Other [facility] Work Phone: Start: 12-07-2013 End: 12-07-2013 PFM PFM [facility] Work Phone: Start: 12-01-2013 Patient Education Water in diet, brief version [facility] Work Phone: Start: 12-01-2013 Provider Instructions for Treatment [facility] Work Phone: Start: 08-08-2013 End: 08-08-2013 Follow Up Appt 4 months Follow Up Appt 4 months [facility] Work Phone: Start: 08-08-2013 End: 08-08-2013 Follow Up Appt Other Follow Up Appt Other [facility] Work Phone: Start: 08-08-2013 End: 08-08-2013 MMM MMM [facility] Work Phone: Start: 08-08-2013 End: 08-08-2013 PFM PFM [facility] Work Phone: Start: 08-01-2013 Provider Instructions for Treatment [facility] Work Phone: Start: 07-04-2013 Provider Instructions for Treatment [facility] Work Phone: Start: 06-27-2013 Provider Instructions for Treatment [facility] Work Phone: Start: 06-20-2013 Blood count complete auto&auto difrntl wbc CBC, PLATELETS & AUT DIFF (80278) [facility] Work Phone: Start: 06-20-2013 CRP mass conc C-Reactive Protein (44582) [facility] Work Phone: Start: 06-20-2013 Sedimentation rate rbc non-automated Sed Rate Erythrocyte (94027) [facility] Work Phone: Start: 06-20-2013 Creatinine mass conc CREATININE BLOOD (95878) [facility] Work Phone: Start: 06-08-2013 Patient Education Flu (Influenza) *: flu shot [facility] Work Phone: Start: 05-20-2013 Provider Instructions for Treatment Reviewed Diagnostic Tests [facility] Work Phone: Start: 05-04-2013 End: 07-07-2013 *BMP *BMP [facility] Work Phone: Start: 04-27-2013 End: 04-27-2013 Pulmonary Fuction Test - complete Pulmonary Fuction Test - complete [facility] Work Phone: Start: 04-22-2013 Provider Instructions for Treatment Reviewed Diagnostic Tests [facility] Work Phone: Start: 04-19-2013 End: 04-20-2013 *BMP *BMP [facility] Work Phone: Start: 04-19-2013 End: 04-20-2013 aPTT *PTT-Partial Thromboplastin Time [facility] Work Phone: Start: 04-19-2013 End: 04-20-2013 CBC W Auto Differential panel - Blood *CBC without Diff [facility] Work Phone: Start: 04-19-2013 End: 04-20-2013 Chest x-ray X-Ray, Chest, PA & Lateral [facility] Work Phone: Start: 04-19-2013 End: 04-20-2013 Coagulation factor induced.INR assay in platelet poor plasma *PT/INR [facility] Work Phone: Start: 04-19-2013 End: 04-19-2013 Electrocardiogram, complete EKG (In office) [facility] Work Phone: Start: 04-19-2013 End: 04-19-2013 Follow Up Appt Other Follow Up Appt Other [facility] Work Phone: Start: 04-18-2013 End: 04-18-2013 Left & Right Heart Cath W/Grafts Left & Right Heart Cath W/Grafts [facility] Work Phone: Start: 04-15-2013 Patient Education Water in diet, brief version [facility] Work Phone: Start: 04-15-2013 Provider Instructions for Treatment [facility] Work Phone: Start: 03-15-2013 End: 03-09-2013 Echocardiography Echocardiogram (complete) [facility] Work Phone: Start: 02-28-2013 Provider Instructions for Treatment [facility] Work Phone: Start: 02-10-2013 End: 02-10-2013 Arterial exam Arterial exam [facility] Work Phone: Start: 02-10-2013 End: 02-10-2013 Electrocardiogram, complete EKG (In office) [facility] Work Phone: Start: 02-10-2013 End: 02-10-2013 Flecainide [Mass/volume] in Serum or Plasma *FLEC Flecainide (Tambocor) 93278 [facility] Work Phone: Start: 02-10-2013 End: 02-10-2013 Follow Up Appt 6 months Follow Up Appt 6 months [facility] Work Phone: Start: 02-10-2013 End: 08-08-2013 Lipid panel [AGGREGATE] *Lipid Profile CC PCP [facility] Work Phone: Start: 02-10-2013 End: 02-10-2013 MMM MMM [facility] Work Phone: Start: 11-15-2012 Provider Instructions for Treatment Reviewed Diagnostic Tests [facility] Work Phone: Start: 10-25-2012 Provider Instructions for Treatment [facility] Work Phone: Start: 10-21-2012 Provider Instructions for Treatment Continue Current Prescription(s) [facility] Work Phone: Start: 09-30-2012 Patient Education Water in diet, brief version [facility] Work Phone: Start: 09-30-2012 Provider Instructions for Treatment follow up for recheck urine 1 week after complete antibiotic [facility] Work Phone: Start: 09-30-2012 Culture bacterial quanttative colony count urine URINE IBRAHIMA CULTURE (TY COL COUNT) (05086) [facility] Work Phone: Start: 09-16-2012 Provider Instructions for Treatment Follow up in 1 month [facility] Work Phone: Start: 07-08-2012 End: 04-18-2013 *Hepatic Function Panel *Hepatic Function Panel [facility] Work Phone: Start: 07-08-2012 End: 07-09-2012 Electrocardiogram, complete EKG (In office) [facility] Work Phone: Start: 07-08-2012 End: 07-09-2012 Follow Up Appt 6 months Follow Up Appt 6 months [facility] Work Phone: Start: 07-08-2012 End: 04-18-2013 Lipid panel [AGGREGATE] *Lipid Profile [facility] Work Phone: Start: 04-12-2012 End: 04-12-2012 Follow Up Appt 3 months Follow Up Appt 3 months [facility] Work Phone: Start: 03-05-2012 Provider Instructions for Treatment Punch Biopsy with Epi [facility] Work Phone: Start: 02-25-2012 Patient Education Coronary Artery Disease *: artery [facility] Work Phone: Start: 02-25-2012 Provider Instructions for Treatment Reviewed Diagnostic Tests:- is sees mass / pt cant do mri-- whatever it is ct cant see - [facility] Work Phone: Start: 01-30-2012 Patient Education Skin Exam: skin [facility] Work Phone: Start: 01-15-2012 Provider Instructions for Treatment [facility] Work Phone: Start: 01-06-2012 End: 04-18-2013 *Hepatic Function Panel *Hepatic Function Panel [facility] Work Phone: Start: 01-06-2012 End: 01-06-2012 24 hour holter monitor 24 hour holter monitor [facility] Work Phone: Start: 01-06-2012 End: 01-06-2012 Electrocardiogram, complete EKG (In office) [facility] Work Phone: Start: 01-06-2012 End: 01-06-2012 Follow Up Appt 3 months Follow Up Appt 3 months [facility] Work Phone: Start: 01-06-2012 End: 01-06-2012 Follow Up Appt Other Follow Up Appt Other [facility] Work Phone: Start: 01-06-2012 End: 04-18-2013 Lipid panel [AGGREGATE] *Lipid Profile [facility] Work Phone: Start: 12-31-2011 Provider Instructions for Treatment [facility] Work Phone: Start: 12-24-2011 Fibrin dgradj products d-dimer quantitative D-Dimer (82105) [facility] Work Phone: Start: 12-24-2011 Blood count complete automated CBC (AUTO) (65890) [facility] Work Phone: Start: 12-03-2011 Culture bacterial quanttative colony count urine URINE IBRAHIMA CULTURE-TY COL COUNT (89373) [facility] Work Phone: Start: 11-26-2011 Provider Instructions for Treatment [facility] Work Phone: Start: 11-06-2011 Provider Instructions for Treatment Reviewed Diagnostic Tests [facility] Work Phone: Start: 11-04-2011 Renal function panel Renal function Panel (93683) [facility] Work Phone: Start: 10-22-2011 CRP mass conc C-Reactive Protein (42000) [facility] Work Phone: Start: 10-21-2011 Renal function panel Renal function Panel (30980) [facility] Work Phone: Start: 10-21-2011 Provider Instructions for Treatment Follow up in 2 weeks [facility] Work Phone: Start: 10-21-2011 Fibrin dgradj products d-dimer quantitative D-Dimer (69901) [facility] Work Phone: Start: 10-21-2011 Troponin I.cardiac mass conc Troponin I (59932) [facility] Work Phone: Start: 10-21-2011 Creatine kinase mb fraction only CPK MB FRACTION (83439) [facility] Work Phone: Start: 10-21-2011 Creatine kinase total CREATINE KINASE TOTAL (57949) [facility] Work Phone: Start: 10-21-2011 CRP mass conc C-Reactive Protein (07907) [facility] Work Phone: Start: 06-17-2010 Provider Instructions for Treatment [facility] Work Phone: Start: 12-13-2009 Provider Instructions for Treatment [facility] Work Phone: Start: 01-17-2009 Provider Instructions for Treatment [facility] Work Phone: Start: 01-12-2009 Provider Instructions for Treatment *ERGOCALCIFEROL DOSAGE PER SHEWMON [facility] Work Phone: Start: 01-12-2009 Nuclear Ab IF titer (S) CORTES (ANTINUCLEAR ANTIBODY) (17088) [facility] Work Phone: Start: 01-12-2009 Rheumatoid factor quantitative RHEUMATOID FACTOR-QUANT (81729) [facility] Work Phone: Start: 01-12-2009 25 hydroxy includes fractions if performed Vitamin D Hydroxy (84172) [facility] Work Phone: Comment on above: do in 3-4 months Start: 01-02-2009 Provider Instructions for Treatment [facility] Work Phone: Start: 01-02-2009 25 hydroxy includes fractions if performed Vitamin D Hydroxy (39424) [facility] Work Phone: Start: 01-02-2009 1 25 dihydroxy includes fractions if performed VITAMIN D, 1, 25-DIHYDROXY (76323) [facility] Work Phone: Start: 01-02-2009 Thyrotropin Qn TSH (93556) [facility] Work Phone: Start: 01-02-2009 Protein electrophoretic fractj&quantj serum [facility] Work Phone: Start: 01-02-2009 Sedimentation rate rbc non-automated SED RATE ERYTHROCYTE (07774) [facility] Work Phone: Start: 01-02-2009 Phosphate mass conc PHOSPHORUS (72831) [facility] Work Phone: Start: 01-02-2009 Assay of parathormone PARATHORMONE (05622) [facility] Work Phone: Start: 01-02-2009 Hepatic function panel HEPATIC FUNCTION PANEL (13477) [facility] Work Phone: Start: 01-02-2009 Blood count complete automated CBC (AUTO) (08845) [facility] Work Phone: Start: 01-02-2009 Calcium mass conc CALCIUM SERUM (84939) [facility] Work Phone: Start: 01-02-2009 CRP mass conc C-REACTIVE PROTEIN (59815) [facility] Work Phone: Start: 01-02-2009 ALP enzyme act/vol ALKALINE PHOSPHATASE (83060) [facility] Work Phone: Start: 10-04-2008 Provider Instructions for Treatment [facility] Work Phone: Start: 10-04-2008 Lipid panel LIPID PANEL (34832) [facility] Work Phone: Start: 09-21-2008 Patient Education Water in diet, brief version [facility] Work Phone: Start: 09-21-2008 Provider Instructions for Treatment [facility] Work Phone: Start: 08-24-2008 Provider Instructions for Treatment [facility] Work Phone: Start: 06-28-2008 Provider Instructions for Treatment [facility] Work Phone: Patient Education HYPERLIPIDEMIA [facility] Work Phone: [facility] Work Phone: [facility] Work Phone: [facility] Work Phone: [facility] Work Phone[facility] Work Phone: [facility] Work Phone: [facility] Work Phone[facility] Work Phone: [facility] Work Phone: [facility] Work Phone[facility] Work Phone: [facility] Work Phone: [facility] Work Phone[facility] Work Phone: [facility] Work Phone: [facility] Work Phone: [facility] Work Phone: [facility] Work Phone: [facility] Work Phone: [facility] Work Phone: [facility] Work Phone[facility] Work Phone: [facility] Work Phone: [facility] Work Phone: [facility] Work Phone: [facility] Work Phone: [facility] Work Phone: [facility] Work Phone[facility] Work Phone: [facility] Work Phone[facility] Work Phone: [facility] Work Phone: [facility] Work Phone[facility] Work Phone[facility] Work Phone[facility] Work Phone: [facility] Work Phone: [facility] Work Phone: [facility] Work Phone[facility] Work Phone: [facility] Work Phone: [facility] Work Phone: [facility] Work Phone: [facility] Work Phone: [facility] Work Phone: [facility] Work Phone: [facility] Work Phone[facility] Work Phone: [facility] Work Phone[facility] Work Phone: [facility] Work Phone: [facility] Work Phone: [facility] Work Phone: [facility] Work Phone[facility] Work Phone: [facility] Work Phone: [facility] Work Phone[facility] Work Phone: [facility] Work Phone: [facility] Work Phone: [facility] Work Phone: [facility] Work Phone: [facility] Work Phone: [facility] Work Phone: Immunizations Immunization Date Immunization Notes Care Provider [facility] 06-13-2009 influenza, seasonal, injectable Mirella Nicole [facility] Work Phone: Comment on above: [id number]-left deltoidgiven by:[facility] 06-28-2008 influenza, seasonal, injectable Mirella Nicole [facility] Work Phone: Comment on above: done km 0.5cc given im ;lt arm lot [id number] exp 02-20 Payers Date Payer Category Payer Unknown [id number] 2024 Self-pay [id number] 2024 Unknown [id number] 2016 Unknown [id number] 2004 Medicare [id number] Medicare MEDICARE PART A B [id number] Private Health Insurance [id number] Unknown Unknown [id number] [id number] Unknown [id number] 2.16.840.1.669615.3.579.2.462 Unknown [id number] 2.16.840.1.455068.3.579.2.462 Unknown [id number] 2.16.840.1.761781.3.579.2.462 Unknown [id number] 2.16.840.1.748718.3.579.2.462 Unknown [id number] 2.16.840.1.601044.3.579.2.462 Unknown [id number] 2.16.840.1.051615.3.579.2.462 Unknown [id number] 2.840.1.594072.3.579.2.462 Unknown [id number] 2.840.1.290650.3.579.2.462 Unknown [id number] 2.840.1.977351.3.579.2.462 Unknown [id number] 2.16.840.1.378624.3.579.2.462 Unknown [id number] 2.16.840.1.598280.3.579.2.462 Unknown [id number] 2.16.840.1.982017.3.579.2.462 Unknown [id number] 2.16.840.1.720026.3.579.2.462 Unknown [id number] 2.16.840.1.698516.3.579.2.462 Unknown [id number] 2.16.840.1.633113.3.579.2.462 Unknown [id number] 2.16.840.1.063104.3.579.2.462 Unknown [id number] 2.16840.1.052728.3.579.2.462 Unknown [id number] 2.16.840.1.616843.3.579.2.462 Unknown [id number] 2.16.840.1.238835.3.579.2.462 Unknown [id number] 2.16.840.1.076602.3.579.2.462 Unknown [id number] 2.16.840.1.242804.3.579.2.462 Unknown [id number] 2.16.840.1.679040.3.579.2.462 Unknown [id number] 2.16.840.1.481626.3.579.2.462 Unknown [id number] 2.16.840.1.446332.3.579.2.462 Unknown [id number] 2.16.840.1.914684.3.579.2.462 Unknown [id number] 2.16.840.1.374097.3.579.2.462 Unknown [id number] 2.16.840.1.556833.3.579.2.462 Unknown [id number] 2.16.840.1.381457.3.579.2.462 Social History Date Type Detail Facility Caffeine Use Never smoker [facility] Work Phone: Comment on above: 2 per week 3-4 miles QD walking , heterosexua l, celibate Retired Tobacco use: Never smoker. [facility] Work Phone: Start: 09-30-2021 End: 07-09-2023 Tobacco smoking status SCIS Unknown if ever smoked [facility] Start: 06-12-2021 None [facility] Start: 06-12-2021 Homeless [facility] Start: 06-12-2021 Non-smoker [facility] Start: 1940 Sex Assigned At Female [facility] Start: 02-07-2024 Tobacco smoking status NHIS Never smoked tobacco (finding) [facility] Start: 12-14-2024 End: 01-04-2025 Sex Female (finding) [facility] Medical Equipment Procedure Code Equipment Code Equipment Origin al Text Equipment Identifier Dates GENERATOR,BLADDE R STIM FDA Start: 05-27-2019 GENERATOR,BLADDE R STIM FDA Start: 05-27-2019 GENERATOR,BLADDE R STIM FDA Start: 05-27-2019 GENERATOR,BLADDE R STIM FDA Start: 05-27-2019 GENERATOR,BLADDE R STIM FDA Start: 05-27-2019 GENERATOR,BLADDE R STIM FDA Start: 05-27-2019 GENERATOR,BLADDE R STIM FDA Start: 05-27-2019 GENERATOR,BLADDE R STIM FDA Start: 05-27-2019 GENERATOR,BLADDE R STIM FDA Start: 05-27-2019 GENERATOR,BLADDE R STIM FDA Start: 05-27-2019 GENERATOR,BLADDE R STIM FDA Start: 05-27-2019 GENERATOR,BLADDE R STIM FDA Start: 05-27-2019 GENERATOR,BLADDE R STIM FDA Start: 05-27-2019 GENERATOR,BLADDE R STIM FDA Start: 05-27-2019 Evaluation note Note Date & Type Note Facility Evaluation note No assessment information availa [facility] Work Phone: Evaluation note Note Date & Type Note Facility Evaluation note Diagnosis Onset Date Pes anserinus bursitis of left knee noneactive Osteoarthritis of left knee noneactive [facility] Work Phone: Evaluation note Note Date & Type Note Facility Evaluation note Diagnosis Onset Date Pes anserinus bursitis of left knee noneactive Osteoarthritis of left knee noneactive Pes anserinus bursitis of left knee noneactive Osteoarthritis of left knee noneactive [facility] Work Phone: Evaluation note Note Date & Type Note Facility Evaluation note Diagnosis Onset Date Osteoarthritis of left knee noneactive Osteoarthritis of left knee noneactive Osteoarthritis of left knee noneactive Osteoarthritis of left knee noneactive [facility] Work Phone: Reason for referral (narrative) Note Date & Type Note Facility Reason for referral (narrative) No reason for referral information available [facility] Work Phone: Family History No Family History Records FoundUnknown Family Member Name Dates Details First Degree Relatives Comments:Diabetes, Depressio n, Heart/lung dx, HBP, high cholesterol, Seizures, stroke, traumatic Status:Active Unknown Family Member Name Dates Details First Degree Relatives Comments:Diabetes, Depressio n, Heart/lung dx, HBP, high cholesterol, Seizures, stroke, traumatic Status:Active Unknown Family Member Name Dates Details First Degree Relatives Comments:Diabetes, Depressio n, Heart/lung dx, HBP, high cholesterol, Seizures, stroke, traumatic Status:Active Unknown Family Member Name Dates Details First Degree Relatives Comments:Diabetes, Depressio n, Heart/lung dx, HBP, high cholesterol, Seizures, stroke, traumatic Status:Active Unknown Family Member Name Dates Details First Degree Relatives Comments:Diabetes, Depressio n, Heart/lung dx, HBP, high cholesterol, Seizures, stroke, traumatic Status:Active Unknown Family Member Name Dates Details First Degree Relatives Comments:Diabetes, Depressio n, Heart/lung dx, HBP, high cholesterol, Seizures, stroke, traumatic Status:Active Unknown Family Member Name Dates Details First Degree Relatives Comments:Diabetes, Depressio n, Heart/lung dx, HBP, high cholesterol, Seizures, stroke, traumatic Status:Active Unknown Family Member Name Dates Details First Degree Relatives Comments:Diabetes, Depressio n, Heart/lung dx, HBP, high cholesterol, Seizures, stroke, traumatic Status:Active Unknown Family Member Name Dates Details First Degree Relatives Comments:Diabetes, Depressio n, Heart/lung dx, HBP, high cholesterol, Seizures, stroke, traumatic Status:Active Unknown Family Member Name Dates Details First Degree Relatives Comments:Diabetes, Depressio n, Heart/lung dx, HBP, high cholesterol, Seizures, stroke, traumatic Status:Active Relationship Condition Age at Onset Recorded Date/T jenelle Not Specified Family history of hypertension Unknown Family history of co ronary artery disease Unknown Family history of hyperlipidemia Unknown Instructions Name Dates Details How to access health informa [email or web address] online Indication:BMI 29.0-29.9,adult Start:21-Jan-2018 Instruction Type:Patient Education How to access health informa tion online - Detail Indication:BMI 29.0-29.9,adult Start:21-Jan-2018 Instruction Type:Patient Education Patient Instructions Indication:BMI 29.0-29.9,adult Start:21-Jan-2018 Instruction Type:Provider Instructions for Treatment How to access health informa tion online Indication:Nonsmoker Start:09-Nov-2017 Instruction Type:Patient Education How to access health informa tion online - Detail Indication:Nonsmoker Start:09-Nov-2017 Instruction Type:Patient Education How to access health informa tion online Indication:Nonsmoker Start:15-Oct-2017 Instruction Type:Patient Education How to access health informa tion online - Detail Indication:Nonsmoker Start:15-Oct-2017 Instruction Type:Patient Education Patient Instructions Indication:Nonsmoker Start:15-Oct-2017 Instruction Type:Provider Instructions for Treatment How to access health informa tion online Indication:Nonsmoker Start:18-Sep-2017 Instruction Type:Patient Education How to access health informa tion online - Detail Indication:Nonsmoker Start:18-Sep-2017 Instruction Type:Patient Education Patient Instructions Indication:Nonsmoker Start:18-Sep-2017 Instruction Type:Provider Instructions for Treatment How to access health informa tion online Indication:Nonsmoker Start:07-May-2017 Instruction Type:Patient Education How to access health informa tion online - Detail Indication:Nonsmoker Start:07-May-2017 Instruction Type:Patient Education Patient Instructions Indication:Nonsmoker Start:07-May-2017 Instruction Type:Provider Instructions for Treatment How to access health informa tion online Indication:Nonsmoker Start:26-Mar-2017 Instruction Type:Patient Education How to access health informa tion online - Detail Indication:Nonsmoker Start:26-Mar-2017 Instruction Type:Patient Education Patient Instructions Indication:Nonsmoker Start:26-Mar-2017 Instruction Type:Provider Instructions for Treatment How to access health informa tion online Indication:Nonsmoker Start:25-Dec-2016 Instruction Type:Patient Education How to access health informa tion online - Detail Indication:Nonsmoker Start:25-Dec-2016 Instruction Type:Patient Education Patient Instructions Indication:Nonsmoker Start:25-Dec-2016 Instruction Type:Provider Instructions for Treatment How to access health informa tion online Indication:Arthritis Start:25-Sep-2016 Instruction Type:Patient Education How to access health informa tion online - Detail Indication:Arthritis Start:25-Sep-2016 Instruction Type:Patient Education Patient Instructions Indication:Arthritis Start:25-Sep-2016 Instruction Type:Provider Instructions for Treatment How to access health informa tion online Indication:Hyperlipidemia Start:25-Jun-2016 Instruction Type:Patient Education How to access health informa tion online - Detail Indication:Hyperlipidemia Start:25-Jun-2016 Instruction Type:Patient Education Patient Instructions Indication:Hyperlipidemia Start:25-Jun-2016 Instruction Type:Provider Instructions for Treatment How to access health informa tion online Indication:Anxiety Start:25-Jun-2016 Instruction Type:Patient Education How to access health informa tion online - Detail Indication:Anxiety Start:25-Jun-2016 Instruction Type:Patient Education Patient Instructions Indication:Anxiety Start:25-Jun-2016 Instruction Type:Provider Instructions for Treatment How to access health informa tion online Indication:Pain, foot, left, chronic Start:21-May-2016 Instruction Type:Patient Education How to access health informa tion online - Detail Indication:Pain, foot, left, chronic Start:21-May-2016 Instruction Type:Patient Education Patient Instructions Indication:Pain, foot, left, chronic Start:21-May-2016 Instruction Type:Provider Instructions for Treatment How to access health informa tion online Indication:Pre-operative examination Start:04-Jan-2016 Instruction Type:Patient Education How to access health informa tion online - Detail Indication:Pre-operative examination Start:04-Jan-2016 Instruction Type:Patient Education Patient Instructions Indication:Pre-operative examination Start:04-Jan-2016 Instruction Type:Provider Instructions for Treatment How to access health informa tion online Indication:Lipoma of buttock Start:06-Dec-2015 Instruction Type:Patient Education How to access health informa tion online - Detail Indication:Lipoma of buttock Start:06-Dec-2015 Instruction Type:Patient Education Patient Instructions Indication:Lipoma of buttock Start:06-Dec-2015 Instruction Type:Provider Instructions for Treatment Patient Instructions Indication:B12 deficiency Start:29-Nov-2015 Instruction Type:Provider Instructions for Treatment obesity counseling Indication:Obstructive sleep apnea, adult Start:24-Oct-2015 Instruction Type:Provider Instructions for Treatment cardiovascular counseling Indication:Coronary artery disease Start:24-Oct-2015 Instruction Type:Provider Instructions for Treatment How to access health informa tion online Indication:Anxiety Start:26-Jul-2015 Instruction Type:Patient Education How to access health informa tion online - Detail Indication:Anxiety Start:26-Jul-2015 Instruction Type:Patient Education Patient Instructions Indication:Anxiety Start:26-Jul-2015 Instruction Type:Provider Instructions for Treatment How to access health informa tion online Indication:Hyperlipidemia Start:19-Apr-2015 Instruction Type:Patient Education How to access [employer] online - Detail Indication:Hyperlipidemia Start:19-Apr-2015 Instruction Type:Patient Education Patient Instructions Indication:Hyperlipidemia Start:19-Apr-2015 Instruction Type:Provider Instructions for Treatment cardiovascular counseling Indication:Coronary artery disease Start:12-Oct-2014 Instruction Type:Provider Instructions for Treatment Patient Instructions Indication:Headache Start:12-Oct-2014 Instruction Type:Provider Instructions for Treatment Patient Instructions Indication:Headache Start:31-Aug-2014 Instruction Type:Provider Instructions for Treatment How to access [employer] online Indication:Coronary artery disease Start:13-Jul-2014 Instruction Type:Patient Education How to access health informa [employer] - Detail Indication:Coronary artery disease Start:13-Jul-2014 Instruction Type:Patient Education Patient Instructions Indication:Coronary artery disease Start:13-Jul-2014 Instruction Type:Provider Instructions for Treatment Patient Instructions Indication:SYMPTOMS INVOLVING URINARY SYSTEM; DYSURIA Start:17-Apr-2014 Instruction Type:Provider Instructions for Treatment How to access [facility] Indication:Coronary artery disease Start:06-Apr-2014 Instruction Type:Patient Education How to access [facility] - Detail Indication:Coronary artery disease Start:06-Apr-2014 Instruction Type:Patient Education Patient Instructions Indication:Coronary artery disease Start:06-Apr-2014 Instruction Type:Provider Instructions for Treatment Patient Instructions Indication:Rib pain on right side Start:22-Dec-2013 Instruction Type:Provider Instructions for Treatment Patient Instructions Indication:Elevated blood-pressure reading without diagnosis of hypertension Start:01-Dec-2013 Instruction Type:Provider Instructions for Treatment Patient Instructions Indication:Depressive disorder Start:01-Aug-2013 Instruction Type:Provider Instructions for Treatment cardiovascular counseling Indication:Encounter for Medicare annual wellness exam Start:04-Jul-2013 Instruction Type:Provider Instructions for Treatment obesity counseling Indication:BMI 33.0-33.9,adult Start:04-Jul-2013 Instruction Type:Provider Instructions for Treatment Patient Instructions Indication:SOB (shortness of breath) on exertion Start:15-Apr-2013 Instruction Type:Provider Instructions for Treatment Patient Instructions Indication:Mild degeneration of cervical intervertebral disc Start:28-Feb-2013 Instruction Type:Provider Instructions for Treatment Patient Instructions Indication:Muscle spasm Start:15-Nov-2012 Instruction Type:Provider Instructions for Treatment Patient Instructions Indication:Mild degeneration of cervical intervertebral disc Start:25-Oct-2012 Instruction Type:Provider Instructions for Treatment Patient Instructions Indication:Depressive disorder Start:21-Oct-2012 Instruction Type:Provider Instructions for Treatment Patient Instructions Indication:Depressive disorder Start:16-Sep-2012 Instruction Type:Provider Instructions for Treatment Name Dates Details How to access health informa tion online Indication:Nonsmoker Start:15-Mar-2019 Instruction Type:Patient Education How to access health informa tion online - Detail Indication:Nonsmoker Start:15-Mar-2019 Instruction Type:Patient Education Patient Instructions Indication:Nonsmoker Start:15-Mar-2019 Instruction Type:Provider Instructions for Treatment How to access health informa tion online Indication:BMI 29.0-29.9,adult Start:21-Jan-2018 Instruction Type:Patient Education How to access health informa tion online - Detail Indication:BMI 29.0-29.9,adult Start:21-Jan-2018 Instruction Type:Patient Education Patient Instructions Indication:BMI 29.0-29.9,adult Start:21-Jan-2018 Instruction Type:Provider Instructions for Treatment How to access health informa tion online Indication:Nonsmoker Start:09-Nov-2017 Instruction Type:Patient Education How to access health informa tion online - Detail Indication:Nonsmoker Start:09-Nov-2017 Instruction Type:Patient Education How to access health informa tion online Indication:Nonsmoker Start:15-Oct-2017 Instruction Type:Patient Education How to access health informa tion online - Detail Indication:Nonsmoker Start:15-Oct-2017 Instruction Type:Patient Education Patient Instructions Indication:Nonsmoker Start:15-Oct-2017 Instruction Type:Provider Instructions for Treatment How to access health informa tion online Indication:Nonsmoker Start:18-Sep-2017 Instruction Type:Patient Education How to access health informa tion online - Detail Indication:Nonsmoker Start:18-Sep-2017 Instruction Type:Patient Education Patient Instructions Indication:Nonsmoker Start:18-Sep-2017 Instruction Type:Provider Instructions for Treatment How to access health informa tion online Indication:Nonsmoker Start:07-May-2017 Instruction Type:Patient Education How to access health informa tion online - Detail Indication:Nonsmoker Start:07-May-2017 Instruction Type:Patient Education Patient Instructions Indication:Nonsmoker Start:07-May-2017 Instruction Type:Provider Instructions for Treatment How to access health informa tion online Indication:Nonsmoker Start:26-Mar-2017 Instruction Type:Patient Education How to access health informa tion online - Detail Indication:Nonsmoker Start:26-Mar-2017 Instruction Type:Patient Education Patient Instructions Indication:Nonsmoker Start:26-Mar-2017 Instruction Type:Provider Instructions for Treatment How to access health informa tion online Indication:Nonsmoker Start:25-Dec-2016 Instruction Type:Patient Education How to access health informa tion online - Detail Indication:Nonsmoker Start:25-Dec-2016 Instruction Type:Patient Education Patient Instructions Indication:Nonsmoker Start:25-Dec-2016 Instruction Type:Provider Instructions for Treatment How to access health informa tion online Indication:Arthritis Start:25-Sep-2016 Instruction Type:Patient Education How to access health informa tion online - Detail Indication:Arthritis Start:25-Sep-2016 Instruction Type:Patient Education Patient Instructions Indication:Arthritis Start:25-Sep-2016 Instruction Type:Provider Instructions for Treatment How to access health informa tion online Indication:Hyperlipidemia Start:25-Jun-2016 Instruction Type:Patient Education How to access health informa tion online - Detail Indication:Hyperlipidemia Start:25-Jun-2016 Instruction Type:Patient Education Patient Instructions Indication:Hyperlipidemia Start:25-Jun-2016 Instruction Type:Provider Instructions for Treatment How to access health informa tion online Indication:Anxiety Start:25-Jun-2016 Instruction Type:Patient Education How to access health informa tion online - Detail Indication:Anxiety Start:25-Jun-2016 Instruction Type:Patient Education Patient Instructions Indication:Anxiety Start:25-Jun-2016 Instruction Type:Provider Instructions for Treatment How to access health informa tion online Indication:Pain, foot, left, chronic Start:21-May-2016 Instruction Type:Patient Education How to access health informa tion online - Detail Indication:Pain, foot, left, chronic Start:21-May-2016 Instruction Type:Patient Education Patient Instructions Indication:Pain, foot, left, chronic Start:21-May-2016 Instruction Type:Provider Instructions for Treatment How to access health informa tion online Indication:Pre-operative examination Start:04-Jan-2016 Instruction Type:Patient Education How to access health informa tion online - Detail Indication:Pre-operative examination Start:04-Jan-2016 Instruction Type:Patient Education Patient Instructions Indication:Pre-operative examination Start:04-Jan-2016 Instruction Type:Provider Instructions for Treatment How to access health informa tion online Indication:Lipoma of buttock Start:06-Dec-2015 Instruction Type:Patient Education How to access health informa tion online - Detail Indication:Lipoma of buttock Start:06-Dec-2015 Instruction Type:Patient Education Patient Instructions Indication:Lipoma of buttock Start:06-Dec-2015 Instruction Type:Provider Instructions for Treatment Patient Instructions Indication:B12 deficiency Start:29-Nov-2015 Instruction Type:Provider Instructions for Treatment obesity counseling Indication:Obstructive sleep apnea, adult Start:24-Oct-2015 Instruction Type:Provider Instructions for Treatment cardiovascular counseling Indication:Coronary artery disease Start:24-Oct-2015 Instruction Type:Provider Instructions for Treatment How to access health informa tion online Indication:Anxiety Start:26-Jul-2015 Instruction Type:Patient Education How to access health informa tion online - Detail Indication:Anxiety Start:26-Jul-2015 Instruction Type:Patient Education Patient Instructions Indication:Anxiety Start:26-Jul-2015 Instruction Type:Provider Instructions for Treatment How to access health informa tion online Indication:Hyperlipidemia Start:19-Apr-2015 Instruction Type:Patient Education How to access health informa tion online - Detail Indication:Hyperlipidemia Start:19-Apr-2015 Instruction Type:Patient Education Patient Instructions Indication:Hyperlipidemia Start:19-Apr-2015 Instruction Type:Provider Instructions for Treatment cardiovascular counseling Indication:Coronary artery disease Start:12-Oct-2014 Instruction Type:Provider Instructions for Treatment Patient Instructions Indication:Headache Start:12-Oct-2014 Instruction Type:Provider Instructions for Treatment Patient Instructions Indication:Headache Start:31-Aug-2014 Instruction Type:Provider Instructions for Treatment How to access health informa tion online Indication:Coronary artery disease Start:13-Jul-2014 Instruction Type:Patient Education How to access health informa tion online - Detail Indication:Coronary artery disease Start:13-Jul-2014 Instruction Type:Patient Education Patient Instructions Indication:Coronary artery disease Start:13-Jul-2014 Instruction Type:Provider Instructions for Treatment Patient Instructions Indication:SYMPTOMS INVOLVING URINARY SYSTEM; DYSURIA Start:17-Apr-2014 Instruction Type:Provider Instructions for Treatment How to access health informa tion online Indication:Coronary artery disease Start:06-Apr-2014 Instruction Type:Patient Education How to access health informa tion online - Detail Indication:Coronary artery disease Start:06-Apr-2014 Instruction Type:Patient Education Patient Instructions Indication:Coronary artery disease Start:06-Apr-2014 Instruction Type:Provider Instructions for Treatment Patient Instructions Indication:Rib pain on right side Start:22-Dec-2013 Instruction Type:Provider Instructions for Treatment Patient Instructions Indication:Elevated blood-pressure reading without diagnosis of hypertension Start:01-Dec-2013 Instruction Type:Provider Instructions for Treatment Patient Instructions Indication:Depressive disorder Start:01-Aug-2013 Instruction Type:Provider Instructions for Treatment cardiovascular counseling Indication:Encounter for Medicare annual wellness exam Start:04-Jul-2013 Instruction Type:Provider Instructions for Treatment obesity counseling Indication:BMI 33.0-33.9,adult Start:04-Jul-2013 Instruction Type:Provider Instructions for Treatment Patient Instructions Indication:SOB (shortness of breath) on exertion Start:15-Apr-2013 Instruction Type:Provider Instructions for Treatment Patient Instructions Indication:Mild degeneration of cervical intervertebral disc Start:28-Feb-2013 Instruction Type:Provider Instructions for Treatment Patient Instructions Indication:Muscle spasm Start:15-Nov-2012 Instruction Type:Provider Instructions for Treatment Patient Instructions Indication:Mild degeneration of cervical intervertebral disc Start:25-Oct-2012 Instruction Type:Provider Instructions for Treatment Patient Instructions Indication:Depressive disorder Start:21-Oct-2012 Instruction Type:Provider Instructions for Treatment Patient Instructions Indication:Depressive disorder Start:16-Sep-2012 Instruction Type:Provider Instructions for Treatment Name Dates Details How to access health informa tion online Indication:Nonsmoker Start:15-Mar-2019 Instruction Type:Patient Education How to access health informa tion online - Detail Indication:Nonsmoker Start:15-Mar-2019 Instruction Type:Patient Education Patient Instructions Indication:Nonsmoker Start:15-Mar-2019 Instruction Type:Provider Instructions for Treatment How to access health informa tion online Indication:BMI 29.0-29.9,adult Start:21-Jan-2018 Instruction Type:Patient Education How to access health informa tion online - Detail Indication:BMI 29.0-29.9,adult Start:21-Jan-2018 Instruction Type:Patient Education Patient Instructions Indication:BMI 29.0-29.9,adult Start:21-Jan-2018 Instruction Type:Provider Instructions for Treatment How to access health informa tion online Indication:Nonsmoker Start:09-Nov-2017 Instruction Type:Patient Education How to access health informa tion online - Detail Indication:Nonsmoker Start:09-Nov-2017 Instruction Type:Patient Education How to access health informa tion online Indication:Nonsmoker Start:15-Oct-2017 Instruction Type:Patient Education How to access health informa tion online - Detail Indication:Nonsmoker Start:15-Oct-2017 Instruction Type:Patient Education Patient Instructions Indication:Nonsmoker Start:15-Oct-2017 Instruction Type:Provider Instructions for Treatment How to access health informa tion online Indication:Nonsmoker Start:18-Sep-2017 Instruction Type:Patient Education How to access health informa tion online - Detail Indication:Nonsmoker Start:18-Sep-2017 Instruction Type:Patient Education Patient Instructions Indication:Nonsmoker Start:18-Sep-2017 Instruction Type:Provider Instructions for Treatment How to access health informa tion online Indication:Nonsmoker Start:07-May-2017 Instruction Type:Patient Education How to access health informa tion online - Detail Indication:Nonsmoker Start:07-May-2017 Instruction Type:Patient Education Patient Instructions Indication:Nonsmoker Start:07-May-2017 Instruction Type:Provider Instructions for Treatment How to access health informa tion online Indication:Nonsmoker Start:26-Mar-2017 Instruction Type:Patient Education How to access health informa tion online - Detail Indication:Nonsmoker Start:26-Mar-2017 Instruction Type:Patient Education Patient Instructions Indication:Nonsmoker Start:26-Mar-2017 Instruction Type:Provider Instructions for Treatment How to access health informa tion online Indication:Nonsmoker Start:25-Dec-2016 Instruction Type:Patient Education How to access health informa tion online - Detail Indication:Nonsmoker Start:25-Dec-2016 Instruction Type:Patient Education Patient Instructions Indication:Nonsmoker Start:25-Dec-2016 Instruction Type:Provider Instructions for Treatment How to access health informa tion online Indication:Arthritis Start:25-Sep-2016 Instruction Type:Patient Education How to access health informa tion online - Detail Indication:Arthritis Start:25-Sep-2016 Instruction Type:Patient Education Patient Instructions Indication:Arthritis Start:25-Sep-2016 Instruction Type:Provider Instructions for Treatment How to access health informa tion online Indication:Hyperlipidemia Start:25-Jun-2016 Instruction Type:Patient Education How to access health informa tion online - Detail Indication:Hyperlipidemia Start:25-Jun-2016 Instruction Type:Patient Education Patient Instructions Indication:Hyperlipidemia Start:25-Jun-2016 Instruction Type:Provider Instructions for Treatment How to access health informa tion online Indication:Anxiety Start:25-Jun-2016 Instruction Type:Patient Education How to access health informa tion online - Detail Indication:Anxiety Start:25-Jun-2016 Instruction Type:Patient Education Patient Instructions Indication:Anxiety Start:25-Jun-2016 Instruction Type:Provider Instructions for Treatment How to access health informa tion online Indication:Pain, foot, left, chronic Start:21-May-2016 Instruction Type:Patient Education How to access health informa tion online - Detail Indication:Pain, foot, left, chronic Start:21-May-2016 Instruction Type:Patient Education Patient Instructions Indication:Pain, foot, left, chronic Start:21-May-2016 Instruction Type:Provider Instructions for Treatment How to access health informa tion online Indication:Pre-operative examination Start:04-Jan-2016 Instruction Type:Patient Education How to access health informa tion online - Detail Indication:Pre-operative examination Start:04-Jan-2016 Instruction Type:Patient Education Patient Instructions Indication:Pre-operative examination Start:04-Jan-2016 Instruction Type:Provider Instructions for Treatment How to access health informa tion online Indication:Lipoma of buttock Start:06-Dec-2015 Instruction Type:Patient Education How to access health informa tion online - Detail Indication:Lipoma of buttock Start:06-Dec-2015 Instruction Type:Patient Education Patient Instructions Indication:Lipoma of buttock Start:06-Dec-2015 Instruction Type:Provider Instructions for Treatment Patient Instructions Indication:B12 deficiency Start:29-Nov-2015 Instruction Type:Provider Instructions for Treatment obesity counseling Indication:Obstructive sleep apnea, adult Start:24-Oct-2015 Instruction Type:Provider Instructions for Treatment cardiovascular counseling Indication:Coronary artery disease Start:24-Oct-2015 Instruction Type:Provider Instructions for Treatment How to access health informa tion online Indication:Anxiety Start:26-Jul-2015 Instruction Type:Patient Education How to access health informa tion online - Detail Indication:Anxiety Start:26-Jul-2015 Instruction Type:Patient Education Patient Instructions Indication:Anxiety Start:26-Jul-2015 Instruction Type:Provider Instructions for Treatment How to access health informa tion online Indication:Hyperlipidemia Start:19-Apr-2015 Instruction Type:Patient Education How to access health informa tion online - Detail Indication:Hyperlipidemia Start:19-Apr-2015 Instruction Type:Patient Education Patient Instructions Indication:Hyperlipidemia Start:19-Apr-2015 Instruction Type:Provider Instructions for Treatment cardiovascular counseling Indication:Coronary artery disease Start:12-Oct-2014 Instruction Type:Provider Instructions for Treatment Patient Instructions Indication:Headache Start:12-Oct-2014 Instruction Type:Provider Instructions for Treatment Patient Instructions Indication:Headache Start:31-Aug-2014 Instruction Type:Provider Instructions for Treatment How to access health informa [email or web address] online Indication:Coronary artery disease Start:13-Jul-2014 Instruction Type:Patient Education How to access health informa tion online - Detail Indication:Coronary artery disease Start:13-Jul-2014 Instruction Type:Patient Education Patient Instructions Indication:Coronary artery disease Start:13-Jul-2014 Instruction Type:Provider Instructions for Treatment Patient Instructions Indication:SYMPTOMS INVOLVING URINARY SYSTEM; DYSURIA Start:17-Apr-2014 Instruction Type:Provider Instructions for Treatment How to access [employer] Indication:Coronary artery disease Start:06-Apr-2014 Instruction Type:Patient Education How to access health informa tion online - Detail Indication:Coronary artery disease Start:06-Apr-2014 Instruction Type:Patient Education Patient Instructions Indication:Coronary artery disease Start:06-Apr-2014 Instruction Type:Provider Instructions for Treatment Patient Instructions Indication:Rib pain on right side Start:22-Dec-2013 Instruction Type:Provider Instructions for Treatment Patient Instructions Indication:Elevated blood-pressure reading without diagnosis of hypertension Start:01-Dec-2013 Instruction Type:Provider Instructions for Treatment Patient Instructions Indication:Depressive disorder Start:01-Aug-2013 Instruction Type:Provider Instructions for Treatment cardiovascular counseling Indication:Encounter for Medicare annual wellness exam Start:04-Jul-2013 Instruction Type:Provider Instructions for Treatment obesity counseling Indication:BMI 33.0-33.9,adult Start:04-Jul-2013 Instruction Type:Provider Instructions for Treatment Patient Instructions Indication:SOB (shortness of breath) on exertion Start:15-Apr-2013 Instruction Type:Provider Instructions for Treatment Patient Instructions Indication:Mild degeneration of cervical intervertebral disc Start:28-Feb-2013 Instruction Type:Provider Instructions for Treatment Patient Instructions Indication:Muscle spasm Start:15-Nov-2012 Instruction Type:Provider Instructions for Treatment Patient Instructions Indication:Mild degeneration of cervical intervertebral disc Start:25-Oct-2012 Instruction Type:Provider Instructions for Treatment Patient Instructions Indication:Depressive disorder Start:21-Oct-2012 Instruction Type:Provider Instructions for Treatment Patient Instructions Indication:Depressive disorder Start:16-Sep-2012 Instruction Type:Provider Instructions for Treatment Name Dates Details How to access health informa tion online Indication:Nonsmoker Start:05-May-2019 Instruction Type:Patient Education Patient Instructions Indication:Nonsmoker Start:05-May-2019 Instruction Type:Provider Instructions for Treatment How to access health informa tion online Indication:Nonsmoker Start:15-Mar-2019 Instruction Type:Patient Education How to access health informa tion online - Detail Indication:Nonsmoker Start:15-Mar-2019 Instruction Type:Patient Education Patient Instructions Indication:Nonsmoker Start:15-Mar-2019 Instruction Type:Provider Instructions for Treatment How to access health informa tion online Indication:BMI 29.0-29.9,adult Start:21-Jan-2018 Instruction Type:Patient Education How to access health informa tion online - Detail Indication:BMI 29.0-29.9,adult Start:21-Jan-2018 Instruction Type:Patient Education Patient Instructions Indication:BMI 29.0-29.9,adult Start:21-Jan-2018 Instruction Type:Provider Instructions for Treatment How to access health informa tion online Indication:Nonsmoker Start:09-Nov-2017 Instruction Type:Patient Education How to access health informa tion online - Detail Indication:Nonsmoker Start:09-Nov-2017 Instruction Type:Patient Education How to access health informa tion online Indication:Nonsmoker Start:15-Oct-2017 Instruction Type:Patient Education How to access health informa tion online - Detail Indication:Nonsmoker Start:15-Oct-2017 Instruction Type:Patient Education Patient Instructions Indication:Nonsmoker Start:15-Oct-2017 Instruction Type:Provider Instructions for Treatment How to access health informa tion online Indication:Nonsmoker Start:18-Sep-2017 Instruction Type:Patient Education How to access health informa tion online - Detail Indication:Nonsmoker Start:18-Sep-2017 Instruction Type:Patient Education Patient Instructions Indication:Nonsmoker Start:18-Sep-2017 Instruction Type:Provider Instructions for Treatment How to access health informa tion online Indication:Nonsmoker Start:07-May-2017 Instruction Type:Patient Education How to access health informa tion online - Detail Indication:Nonsmoker Start:07-May-2017 Instruction Type:Patient Education Patient Instructions Indication:Nonsmoker Start:07-May-2017 Instruction Type:Provider Instructions for Treatment How to access health informa tion online Indication:Nonsmoker Start:26-Mar-2017 Instruction Type:Patient Education How to access health informa tion online - Detail Indication:Nonsmoker Start:26-Mar-2017 Instruction Type:Patient Education Patient Instructions Indication:Nonsmoker Start:26-Mar-2017 Instruction Type:Provider Instructions for Treatment How to access health informa tion online Indication:Nonsmoker Start:25-Dec-2016 Instruction Type:Patient Education How to access health informa tion online - Detail Indication:Nonsmoker Start:25-Dec-2016 Instruction Type:Patient Education Patient Instructions Indication:Nonsmoker Start:25-Dec-2016 Instruction Type:Provider Instructions for Treatment How to access health informa tion online Indication:Arthritis Start:25-Sep-2016 Instruction Type:Patient Education How to access health informa tion online - Detail Indication:Arthritis Start:25-Sep-2016 Instruction Type:Patient Education Patient Instructions Indication:Arthritis Start:25-Sep-2016 Instruction Type:Provider Instructions for Treatment How to access health informa tion online Indication:Hyperlipidemia Start:25-Jun-2016 Instruction Type:Patient Education How to access health informa tion online - Detail Indication:Hyperlipidemia Start:25-Jun-2016 Instruction Type:Patient Education Patient Instructions Indication:Hyperlipidemia Start:25-Jun-2016 Instruction Type:Provider Instructions for Treatment How to access health informa tion online Indication:Anxiety Start:25-Jun-2016 Instruction Type:Patient Education How to access health informa tion online - Detail Indication:Anxiety Start:25-Jun-2016 Instruction Type:Patient Education Patient Instructions Indication:Anxiety Start:25-Jun-2016 Instruction Type:Provider Instructions for Treatment How to access health informa tion online Indication:Pain, foot, left, chronic Start:21-May-2016 Instruction Type:Patient Education How to access health informa tion online - Detail Indication:Pain, foot, left, chronic Start:21-May-2016 Instruction Type:Patient Education Patient Instructions Indication:Pain, foot, left, chronic Start:21-May-2016 Instruction Type:Provider Instructions for Treatment How to access health informa tion online Indication:Pre-operative examination Start:04-Jan-2016 Instruction Type:Patient Education How to access health informa tion online - Detail Indication:Pre-operative examination Start:04-Jan-2016 Instruction Type:Patient Education Patient Instructions Indication:Pre-operative examination Start:04-Jan-2016 Instruction Type:Provider Instructions for Treatment How to access health informa tion online Indication:Lipoma of buttock Start:06-Dec-2015 Instruction Type:Patient Education How to access health informa tion online - Detail Indication:Lipoma of buttock Start:06-Dec-2015 Instruction Type:Patient Education Patient Instructions Indication:Lipoma of buttock Start:06-Dec-2015 Instruction Type:Provider Instructions for Treatment Patient Instructions Indication:B12 deficiency Start:29-Nov-2015 Instruction Type:Provider Instructions for Treatment obesity counseling Indication:Obstructive sleep apnea, adult Start:24-Oct-2015 Instruction Type:Provider Instructions for Treatment cardiovascular counseling Indication:Coronary artery disease Start:24-Oct-2015 Instruction Type:Provider Instructions for Treatment How to access health informa tion online Indication:Anxiety Start:26-Jul-2015 Instruction Type:Patient Education How to access health informa tion online - Detail Indication:Anxiety Start:26-Jul-2015 Instruction Type:Patient Education Patient Instructions Indication:Anxiety Start:26-Jul-2015 Instruction Type:Provider Instructions for Treatment How to access health informa tion online Indication:Hyperlipidemia Start:19-Apr-2015 Instruction Type:Patient Education How to access health informa tion online - Detail Indication:Hyperlipidemia Start:19-Apr-2015 Instruction Type:Patient Education Patient Instructions Indication:Hyperlipidemia Start:19-Apr-2015 Instruction Type:Provider Instructions for Treatment cardiovascular counseling Indication:Coronary artery disease Start:12-Oct-2014 Instruction Type:Provider Instructions for Treatment Patient Instructions Indication:Headache Start:12-Oct-2014 Instruction Type:Provider Instructions for Treatment Patient Instructions Indication:Headache Start:31-Aug-2014 Instruction Type:Provider Instructions for Treatment How to access health informa tion online Indication:Coronary artery disease Start:13-Jul-2014 Instruction Type:Patient Education How to access health informa tion online - Detail Indication:Coronary artery disease Start:13-Jul-2014 Instruction Type:Patient Education Patient Instructions Indication:Coronary artery disease Start:13-Jul-2014 Instruction Type:Provider Instructions for Treatment Patient Instructions Indication:SYMPTOMS INVOLVING URINARY SYSTEM; DYSURIA Start:17-Apr-2014 Instruction Type:Provider Instructions for Treatment How to access health informa tion online Indication:Coronary artery disease Start:06-Apr-2014 Instruction Type:Patient Education How to access health informa tion online - Detail Indication:Coronary artery disease Start:06-Apr-2014 Instruction Type:Patient Education Patient Instructions Indication:Coronary artery disease Start:06-Apr-2014 Instruction Type:Provider Instructions for Treatment Patient Instructions Indication:Rib pain on right side Start:22-Dec-2013 Instruction Type:Provider Instructions for Treatment Patient Instructions Indication:Elevated blood-pressure reading without diagnosis of hypertension Start:01-Dec-2013 Instruction Type:Provider Instructions for Treatment Patient Instructions Indication:Depressive disorder Start:01-Aug-2013 Instruction Type:Provider Instructions for Treatment cardiovascular counseling Indication:Encounter for Medicare annual wellness exam Start:04-Jul-2013 Instruction Type:Provider Instructions for Treatment obesity counseling Indication:BMI 33.0-33.9,adult Start:04-Jul-2013 Instruction Type:Provider Instructions for Treatment Patient Instructions Indication:SOB (shortness of breath) on exertion Start:15-Apr-2013 Instruction Type:Provider Instructions for Treatment Patient Instructions Indication:Mild degeneration of cervical intervertebral disc Start:28-Feb-2013 Instruction Type:Provider Instructions for Treatment Patient Instructions Indication:Muscle spasm Start:15-Nov-2012 Instruction Type:Provider Instructions for Treatment Patient Instructions Indication:Mild degeneration of cervical intervertebral disc Start:25-Oct-2012 Instruction Type:Provider Instructions for Treatment Patient Instructions Indication:Depressive disorder Start:21-Oct-2012 Instruction Type:Provider Instructions for Treatment Patient Instructions Indication:Depressive disorder Start:16-Sep-2012 Instruction Type:Provider Instructions for Treatment Name Dates Details How to access health informa tion online Indication:Nonsmoker Start:05-May-2019 Instruction Type:Patient Education Patient Instructions Indication:Nonsmoker Start:05-May-2019 Instruction Type:Provider Instructions for Treatment How to access health informa tion online Indication:Nonsmoker Start:15-Mar-2019 Instruction Type:Patient Education How to access health informa tion online - Detail Indication:Nonsmoker Start:15-Mar-2019 Instruction Type:Patient Education Patient Instructions Indication:Nonsmoker Start:15-Mar-2019 Instruction Type:Provider Instructions for Treatment How to access health informa tion online Indication:BMI 29.0-29.9,adult Start:21-Jan-2018 Instruction Type:Patient Education How to access health informa tion online - Detail Indication:BMI 29.0-29.9,adult Start:21-Jan-2018 Instruction Type:Patient Education Patient Instructions Indication:BMI 29.0-29.9,adult Start:21-Jan-2018 Instruction Type:Provider Instructions for Treatment How to access health informa tion online Indication:Nonsmoker Start:09-Nov-2017 Instruction Type:Patient Education How to access health informa tion online - Detail Indication:Nonsmoker Start:09-Nov-2017 Instruction Type:Patient Education How to access health informa tion online Indication:Nonsmoker Start:15-Oct-2017 Instruction Type:Patient Education How to access health informa tion online - Detail Indication:Nonsmoker Start:15-Oct-2017 Instruction Type:Patient Education Patient Instructions Indication:Nonsmoker Start:15-Oct-2017 Instruction Type:Provider Instructions for Treatment How to access health informa tion online Indication:Nonsmoker Start:18-Sep-2017 Instruction Type:Patient Education How to access health informa tion online - Detail Indication:Nonsmoker Start:18-Sep-2017 Instruction Type:Patient Education Patient Instructions Indication:Nonsmoker Start:18-Sep-2017 Instruction Type:Provider Instructions for Treatment How to access health informa tion online Indication:Nonsmoker Start:07-May-2017 Instruction Type:Patient Education How to access health informa tion online - Detail Indication:Nonsmoker Start:07-May-2017 Instruction Type:Patient Education Patient Instructions Indication:Nonsmoker Start:07-May-2017 Instruction Type:Provider Instructions for Treatment How to access health informa tion online Indication:Nonsmoker Start:26-Mar-2017 Instruction Type:Patient Education How to access health informa tion online - Detail Indication:Nonsmoker Start:26-Mar-2017 Instruction Type:Patient Education Patient Instructions Indication:Nonsmoker Start:26-Mar-2017 Instruction Type:Provider Instructions for Treatment How to access health informa tion online Indication:Nonsmoker Start:25-Dec-2016 Instruction Type:Patient Education How to access health informa tion online - Detail Indication:Nonsmoker Start:25-Dec-2016 Instruction Type:Patient Education Patient Instructions Indication:Nonsmoker Start:25-Dec-2016 Instruction Type:Provider Instructions for Treatment How to access health informa tion online Indication:Arthritis Start:25-Sep-2016 Instruction Type:Patient Education How to access health informa tion online - Detail Indication:Arthritis Start:25-Sep-2016 Instruction Type:Patient Education Patient Instructions Indication:Arthritis Start:25-Sep-2016 Instruction Type:Provider Instructions for Treatment How to access health informa tion online Indication:Hyperlipidemia Start:25-Jun-2016 Instruction Type:Patient Education How to access health informa tion online - Detail Indication:Hyperlipidemia Start:25-Jun-2016 Instruction Type:Patient Education Patient Instructions Indication:Hyperlipidemia Start:25-Jun-2016 Instruction Type:Provider Instructions for Treatment How to access health informa tion online Indication:Anxiety Start:25-Jun-2016 Instruction Type:Patient Education How to access health informa tion online - Detail Indication:Anxiety Start:25-Jun-2016 Instruction Type:Patient Education Patient Instructions Indication:Anxiety Start:25-Jun-2016 Instruction Type:Provider Instructions for Treatment How to access health informa tion online Indication:Pain, foot, left, chronic Start:21-May-2016 Instruction Type:Patient Education How to access health informa tion online - Detail Indication:Pain, foot, left, chronic Start:21-May-2016 Instruction Type:Patient Education Patient Instructions Indication:Pain, foot, left, chronic Start:21-May-2016 Instruction Type:Provider Instructions for Treatment How to access health informa tion online Indication:Pre-operative examination Start:04-Jan-2016 Instruction Type:Patient Education How to access health informa tion online - Detail Indication:Pre-operative examination Start:04-Jan-2016 Instruction Type:Patient Education Patient Instructions Indication:Pre-operative examination Start:04-Jan-2016 Instruction Type:Provider Instructions for Treatment How to access health informa tion online Indication:Lipoma of buttock Start:06-Dec-2015 Instruction Type:Patient Education How to access health informa tion online - Detail Indication:Lipoma of buttock Start:06-Dec-2015 Instruction Type:Patient Education Patient Instructions Indication:Lipoma of buttock Start:06-Dec-2015 Instruction Type:Provider Instructions for Treatment Patient Instructions Indication:B12 deficiency Start:29-Nov-2015 Instruction Type:Provider Instructions for Treatment obesity counseling Indication:Obstructive sleep apnea, adult Start:24-Oct-2015 Instruction Type:Provider Instructions for Treatment cardiovascular counseling Indication:Coronary artery disease Start:24-Oct-2015 Instruction Type:Provider Instructions for Treatment How to access health informa tion online Indication:Anxiety Start:26-Jul-2015 Instruction Type:Patient Education How to access health informa tion online - Detail Indication:Anxiety Start:26-Jul-2015 Instruction Type:Patient Education Patient Instructions Indication:Anxiety Start:26-Jul-2015 Instruction Type:Provider Instructions for Treatment How to access [email or web address] online Indication:Hyperlipidemia Start:19-Apr-2015 Instruction Type:Patient Education How to access health informa tion online - Detail Indication:Hyperlipidemia Start:19-Apr-2015 Instruction Type:Patient Education Patient Instructions Indication:Hyperlipidemia Start:19-Apr-2015 Instruction Type:Provider Instructions for Treatment cardiovascular counseling Indication:Coronary artery disease Start:12-Oct-2014 Instruction Type:Provider Instructions for Treatment Patient Instructions Indication:Headache Start:12-Oct-2014 Instruction Type:Provider Instructions for Treatment Patient Instructions Indication:Headache Start:31-Aug-2014 Instruction Type:Provider Instructions for Treatment How to access [email or web address] online Indication:Coronary artery disease Start:13-Jul-2014 Instruction Type:Patient Education How to access health informa tion [employer] - Detail Indication:Coronary artery disease Start:13-Jul-2014 Instruction Type:Patient Education Patient Instructions Indication:Coronary artery disease Start:13-Jul-2014 Instruction Type:Provider Instructions for Treatment Patient Instructions Indication:SYMPTOMS INVOLVING URINARY SYSTEM; DYSURIA Start:17-Apr-2014 Instruction Type:Provider Instructions for Treatment How to access [employer] Indication:Coronary artery disease Start:06-Apr-2014 Instruction Type:Patient Education How to access [employer] informa tion online - Detail Indication:Coronary artery disease Start:06-Apr-2014 Instruction Type:Patient Education Patient Instructions Indication:Coronary artery disease Start:06-Apr-2014 Instruction Type:Provider Instructions for Treatment Patient Instructions Indication:Rib pain on right side Start:22-Dec-2013 Instruction Type:Provider Instructions for Treatment Patient Instructions Indication:Elevated blood-pressure reading without diagnosis of hypertension Start:01-Dec-2013 Instruction Type:Provider Instructions for Treatment Patient Instructions Indication:Depressive disorder Start:01-Aug-2013 Instruction Type:Provider Instructions for Treatment cardiovascular counseling Indication:Encounter for Medicare annual wellness exam Start:04-Jul-2013 Instruction Type:Provider Instructions for Treatment obesity counseling Indication:BMI 33.0-33.9,adult Start:04-Jul-2013 Instruction Type:Provider Instructions for Treatment Patient Instructions Indication:SOB (shortness of breath) on exertion Start:15-Apr-2013 Instruction Type:Provider Instructions for Treatment Patient Instructions Indication:Mild degeneration of cervical intervertebral disc Start:28-Feb-2013 Instruction Type:Provider Instructions for Treatment Patient Instructions Indication:Muscle spasm Start:15-Nov-2012 Instruction Type:Provider Instructions for Treatment Patient Instructions Indication:Mild degeneration of cervical intervertebral disc Start:25-Oct-2012 Instruction Type:Provider Instructions for Treatment Patient Instructions Indication:Depressive disorder Start:21-Oct-2012 Instruction Type:Provider Instructions for Treatment Patient Instructions Indication:Depressive disorder Start:16-Sep-2012 Instruction Type:Provider Instructions for Treatment Name Dates Details How to access health informa tion online Indication:Nonsmoker Start:05-May-2019 Instruction Type:Patient Education Patient Instructions Indication:Nonsmoker Start:05-May-2019 Instruction Type:Provider Instructions for Treatment How to access health informa tion online Indication:Nonsmoker Start:15-Mar-2019 Instruction Type:Patient Education How to access health informa tion online - Detail Indication:Nonsmoker Start:15-Mar-2019 Instruction Type:Patient Education Patient Instructions Indication:Nonsmoker Start:15-Mar-2019 Instruction Type:Provider Instructions for Treatment How to access health informa tion online Indication:BMI 29.0-29.9,adult Start:21-Jan-2018 Instruction Type:Patient Education How to access health informa tion online - Detail Indication:BMI 29.0-29.9,adult Start:21-Jan-2018 Instruction Type:Patient Education Patient Instructions Indication:BMI 29.0-29.9,adult Start:21-Jan-2018 Instruction Type:Provider Instructions for Treatment How to access health informa tion online Indication:Nonsmoker Start:09-Nov-2017 Instruction Type:Patient Education How to access health informa tion online - Detail Indication:Nonsmoker Start:09-Nov-2017 Instruction Type:Patient Education How to access health informa tion online Indication:Nonsmoker Start:15-Oct-2017 Instruction Type:Patient Education How to access health informa tion online - Detail Indication:Nonsmoker Start:15-Oct-2017 Instruction Type:Patient Education Patient Instructions Indication:Nonsmoker Start:15-Oct-2017 Instruction Type:Provider Instructions for Treatment How to access health informa tion online Indication:Nonsmoker Start:18-Sep-2017 Instruction Type:Patient Education How to access health informa tion online - Detail Indication:Nonsmoker Start:18-Sep-2017 Instruction Type:Patient Education Patient Instructions Indication:Nonsmoker Start:18-Sep-2017 Instruction Type:Provider Instructions for Treatment How to access health informa tion online Indication:Nonsmoker Start:07-May-2017 Instruction Type:Patient Education How to access health informa tion online - Detail Indication:Nonsmoker Start:07-May-2017 Instruction Type:Patient Education Patient Instructions Indication:Nonsmoker Start:07-May-2017 Instruction Type:Provider Instructions for Treatment How to access health informa tion online Indication:Nonsmoker Start:26-Mar-2017 Instruction Type:Patient Education How to access health informa tion online - Detail Indication:Nonsmoker Start:26-Mar-2017 Instruction Type:Patient Education Patient Instructions Indication:Nonsmoker Start:26-Mar-2017 Instruction Type:Provider Instructions for Treatment How to access health informa tion online Indication:Nonsmoker Start:25-Dec-2016 Instruction Type:Patient Education How to access health informa tion online - Detail Indication:Nonsmoker Start:25-Dec-2016 Instruction Type:Patient Education Patient Instructions Indication:Nonsmoker Start:25-Dec-2016 Instruction Type:Provider Instructions for Treatment How to access health informa tion online Indication:Arthritis Start:25-Sep-2016 Instruction Type:Patient Education How to access health informa tion online - Detail Indication:Arthritis Start:25-Sep-2016 Instruction Type:Patient Education Patient Instructions Indication:Arthritis Start:25-Sep-2016 Instruction Type:Provider Instructions for Treatment How to access health informa tion online Indication:Hyperlipidemia Start:25-Jun-2016 Instruction Type:Patient Education How to access health informa tion online - Detail Indication:Hyperlipidemia Start:25-Jun-2016 Instruction Type:Patient Education Patient Instructions Indication:Hyperlipidemia Start:25-Jun-2016 Instruction Type:Provider Instructions for Treatment How to access health informa tion online Indication:Anxiety Start:25-Jun-2016 Instruction Type:Patient Education How to access health informa tion online - Detail Indication:Anxiety Start:25-Jun-2016 Instruction Type:Patient Education Patient Instructions Indication:Anxiety Start:25-Jun-2016 Instruction Type:Provider Instructions for Treatment How to access health informa tion online Indication:Pain, foot, left, chronic Start:21-May-2016 Instruction Type:Patient Education How to access health informa tion online - Detail Indication:Pain, foot, left, chronic Start:21-May-2016 Instruction Type:Patient Education Patient Instructions Indication:Pain, foot, left, chronic Start:21-May-2016 Instruction Type:Provider Instructions for Treatment How to access health informa tion online Indication:Pre-operative examination Start:04-Jan-2016 Instruction Type:Patient Education How to access health informa tion online - Detail Indication:Pre-operative examination Start:04-Jan-2016 Instruction Type:Patient Education Patient Instructions Indication:Pre-operative examination Start:04-Jan-2016 Instruction Type:Provider Instructions for Treatment How to access health informa tion online Indication:Lipoma of buttock Start:06-Dec-2015 Instruction Type:Patient Education How to access health informa tion online - Detail Indication:Lipoma of buttock Start:06-Dec-2015 Instruction Type:Patient Education Patient Instructions Indication:Lipoma of buttock Start:06-Dec-2015 Instruction Type:Provider Instructions for Treatment Patient Instructions Indication:B12 deficiency Start:29-Nov-2015 Instruction Type:Provider Instructions for Treatment obesity counseling Indication:Obstructive sleep apnea, adult Start:24-Oct-2015 Instruction Type:Provider Instructions for Treatment cardiovascular counseling Indication:Coronary artery disease Start:24-Oct-2015 Instruction Type:Provider Instructions for Treatment How to access health informa tion online Indication:Anxiety Start:26-Jul-2015 Instruction Type:Patient Education How to access health informa tion online - Detail Indication:Anxiety Start:26-Jul-2015 Instruction Type:Patient Education Patient Instructions Indication:Anxiety Start:26-Jul-2015 Instruction Type:Provider Instructions for Treatment How to access health informa tion online Indication:Hyperlipidemia Start:19-Apr-2015 Instruction Type:Patient Education How to access health informa tion online - Detail Indication:Hyperlipidemia Start:19-Apr-2015 Instruction Type:Patient Education Patient Instructions Indication:Hyperlipidemia Start:19-Apr-2015 Instruction Type:Provider Instructions for Treatment cardiovascular counseling Indication:Coronary artery disease Start:12-Oct-2014 Instruction Type:Provider Instructions for Treatment Patient Instructions Indication:Headache Start:12-Oct-2014 Instruction Type:Provider Instructions for Treatment Patient Instructions Indication:Headache Start:31-Aug-2014 Instruction Type:Provider Instructions for Treatment How to access health informa tion online Indication:Coronary artery disease Start:13-Jul-2014 Instruction Type:Patient Education How to access health informa tion online - Detail Indication:Coronary artery disease Start:13-Jul-2014 Instruction Type:Patient Education Patient Instructions Indication:Coronary artery disease Start:13-Jul-2014 Instruction Type:Provider Instructions for Treatment Patient Instructions Indication:SYMPTOMS INVOLVING URINARY SYSTEM; DYSURIA Start:17-Apr-2014 Instruction Type:Provider Instructions for Treatment How to access health informa tion online Indication:Coronary artery disease Start:06-Apr-2014 Instruction Type:Patient Education How to access health informa tion online - Detail Indication:Coronary artery disease Start:06-Apr-2014 Instruction Type:Patient Education Patient Instructions Indication:Coronary artery disease Start:06-Apr-2014 Instruction Type:Provider Instructions for Treatment Patient Instructions Indication:Rib pain on right side Start:22-Dec-2013 Instruction Type:Provider Instructions for Treatment Patient Instructions Indication:Elevated blood-pressure reading without diagnosis of hypertension Start:01-Dec-2013 Instruction Type:Provider Instructions for Treatment Patient Instructions Indication:Depressive disorder Start:01-Aug-2013 Instruction Type:Provider Instructions for Treatment cardiovascular counseling Indication:Encounter for Medicare annual wellness exam Start:04-Jul-2013 Instruction Type:Provider Instructions for Treatment obesity counseling Indication:BMI 33.0-33.9,adult Start:04-Jul-2013 Instruction Type:Provider Instructions for Treatment Patient Instructions Indication:SOB (shortness of breath) on exertion Start:15-Apr-2013 Instruction Type:Provider Instructions for Treatment Patient Instructions Indication:Mild degeneration of cervical intervertebral disc Start:28-Feb-2013 Instruction Type:Provider Instructions for Treatment Patient Instructions Indication:Muscle spasm Start:15-Nov-2012 Instruction Type:Provider Instructions for Treatment Patient Instructions Indication:Mild degeneration of cervical intervertebral disc Start:25-Oct-2012 Instruction Type:Provider Instructions for Treatment Patient Instructions Indication:Depressive disorder Start:21-Oct-2012 Instruction Type:Provider Instructions for Treatment Patient Instructions Indication:Depressive disorder Start:16-Sep-2012 Instruction Type:Provider Instructions for Treatment Name Dates Details How to access health informa tion online Indication:Nonsmoker Start:05-May-2019 Instruction Type:Patient Education Patient Instructions Indication:Nonsmoker Start:05-May-2019 Instruction Type:Provider Instructions for Treatment How to access health informa tion online Indication:Nonsmoker Start:15-Mar-2019 Instruction Type:Patient Education How to access health informa tion online - Detail Indication:Nonsmoker Start:15-Mar-2019 Instruction Type:Patient Education Patient Instructions Indication:Nonsmoker Start:15-Mar-2019 Instruction Type:Provider Instructions for Treatment How to access health informa tion online Indication:BMI 29.0-29.9,adult Start:21-Jan-2018 Instruction Type:Patient Education How to access health informa tion online - Detail Indication:BMI 29.0-29.9,adult Start:21-Jan-2018 Instruction Type:Patient Education Patient Instructions Indication:BMI 29.0-29.9,adult Start:21-Jan-2018 Instruction Type:Provider Instructions for Treatment How to access health informa tion online Indication:Nonsmoker Start:09-Nov-2017 Instruction Type:Patient Education How to access health informa tion online - Detail Indication:Nonsmoker Start:09-Nov-2017 Instruction Type:Patient Education How to access health informa tion online Indication:Nonsmoker Start:15-Oct-2017 Instruction Type:Patient Education How to access health informa tion online - Detail Indication:Nonsmoker Start:15-Oct-2017 Instruction Type:Patient Education Patient Instructions Indication:Nonsmoker Start:15-Oct-2017 Instruction Type:Provider Instructions for Treatment How to access health informa tion online Indication:Nonsmoker Start:18-Sep-2017 Instruction Type:Patient Education How to access health informa tion online - Detail Indication:Nonsmoker Start:18-Sep-2017 Instruction Type:Patient Education Patient Instructions Indication:Nonsmoker Start:18-Sep-2017 Instruction Type:Provider Instructions for Treatment How to access health informa tion online Indication:Nonsmoker Start:07-May-2017 Instruction Type:Patient Education How to access health informa tion online - Detail Indication:Nonsmoker Start:07-May-2017 Instruction Type:Patient Education Patient Instructions Indication:Nonsmoker Start:07-May-2017 Instruction Type:Provider Instructions for Treatment How to access health informa tion online Indication:Nonsmoker Start:26-Mar-2017 Instruction Type:Patient Education How to access health informa tion online - Detail Indication:Nonsmoker Start:26-Mar-2017 Instruction Type:Patient Education Patient Instructions Indication:Nonsmoker Start:26-Mar-2017 Instruction Type:Provider Instructions for Treatment How to access health informa tion online Indication:Nonsmoker Start:25-Dec-2016 Instruction Type:Patient Education How to access health informa tion online - Detail Indication:Nonsmoker Start:25-Dec-2016 Instruction Type:Patient Education Patient Instructions Indication:Nonsmoker Start:25-Dec-2016 Instruction Type:Provider Instructions for Treatment How to access health informa tion online Indication:Arthritis Start:25-Sep-2016 Instruction Type:Patient Education How to access health informa tion online - Detail Indication:Arthritis Start:25-Sep-2016 Instruction Type:Patient Education Patient Instructions Indication:Arthritis Start:25-Sep-2016 Instruction Type:Provider Instructions for Treatment How to access health informa tion online Indication:Hyperlipidemia Start:25-Jun-2016 Instruction Type:Patient Education How to access health informa tion online - Detail Indication:Hyperlipidemia Start:25-Jun-2016 Instruction Type:Patient Education Patient Instructions Indication:Hyperlipidemia Start:25-Jun-2016 Instruction Type:Provider Instructions for Treatment How to access health informa tion online Indication:Anxiety Start:25-Jun-2016 Instruction Type:Patient Education How to access health informa tion online - Detail Indication:Anxiety Start:25-Jun-2016 Instruction Type:Patient Education Patient Instructions Indication:Anxiety Start:25-Jun-2016 Instruction Type:Provider Instructions for Treatment How to access health informa tion online Indication:Pain, foot, left, chronic Start:21-May-2016 Instruction Type:Patient Education How to access health informa tion online - Detail Indication:Pain, foot, left, chronic Start:21-May-2016 Instruction Type:Patient Education Patient Instructions Indication:Pain, foot, left, chronic Start:21-May-2016 Instruction Type:Provider Instructions for Treatment How to access health informa tion online Indication:Pre-operative examination Start:04-Jan-2016 Instruction Type:Patient Education How to access health informa tion online - Detail Indication:Pre-operative examination Start:04-Jan-2016 Instruction Type:Patient Education Patient Instructions Indication:Pre-operative examination Start:04-Jan-2016 Instruction Type:Provider Instructions for Treatment How to access health informa tion online Indication:Lipoma of buttock Start:06-Dec-2015 Instruction Type:Patient Education How to access health informa tion online - Detail Indication:Lipoma of buttock Start:06-Dec-2015 Instruction Type:Patient Education Patient Instructions Indication:Lipoma of buttock Start:06-Dec-2015 Instruction Type:Provider Instructions for Treatment Patient Instructions Indication:B12 deficiency Start:29-Nov-2015 Instruction Type:Provider Instructions for Treatment obesity counseling Indication:Obstructive sleep apnea, adult Start:24-Oct-2015 Instruction Type:Provider Instructions for Treatment cardiovascular counseling Indication:Coronary artery disease Start:24-Oct-2015 Instruction Type:Provider Instructions for Treatment How to access health informa tion online Indication:Anxiety Start:26-Jul-2015 Instruction Type:Patient Education How to access health informa tion online - Detail Indication:Anxiety Start:26-Jul-2015 Instruction Type:Patient Education Patient Instructions Indication:Anxiety Start:26-Jul-2015 Instruction Type:Provider Instructions for Treatment How to access health informa tion online Indication:Hyperlipidemia Start:19-Apr-2015 Instruction Type:Patient Education How to access health informa tion online - Detail Indication:Hyperlipidemia Start:19-Apr-2015 Instruction Type:Patient Education Patient Instructions Indication:Hyperlipidemia Start:19-Apr-2015 Instruction Type:Provider Instructions for Treatment cardiovascular counseling Indication:Coronary artery disease Start:12-Oct-2014 Instruction Type:Provider Instructions for Treatment Patient Instructions Indication:Headache Start:12-Oct-2014 Instruction Type:Provider Instructions for Treatment Patient Instructions Indication:Headache Start:31-Aug-2014 Instruction Type:Provider Instructions for Treatment How to access health informa tion online Indication:Coronary artery disease Start:13-Jul-2014 Instruction Type:Patient Education How to access health informa tion online - Detail Indication:Coronary artery disease Start:13-Jul-2014 Instruction Type:Patient Education Patient Instructions Indication:Coronary artery disease Start:13-Jul-2014 Instruction Type:Provider Instructions for Treatment Patient Instructions Indication:SYMPTOMS INVOLVING URINARY SYSTEM; DYSURIA Start:17-Apr-2014 Instruction Type:Provider Instructions for Treatment How to access health informa tion online Indication:Coronary artery disease Start:06-Apr-2014 Instruction Type:Patient Education How to access health informa tion online - Detail Indication:Coronary artery disease Start:06-Apr-2014 Instruction Type:Patient Education Patient Instructions Indication:Coronary artery disease Start:06-Apr-2014 Instruction Type:Provider Instructions for Treatment Patient Instructions Indication:Rib pain on right side Start:22-Dec-2013 Instruction Type:Provider Instructions for Treatment Patient Instructions Indication:Elevated blood-pressure reading without diagnosis of hypertension Start:01-Dec-2013 Instruction Type:Provider Instructions for Treatment Patient Instructions Indication:Depressive disorder Start:01-Aug-2013 Instruction Type:Provider Instructions for Treatment cardiovascular counseling Indication:Encounter for Medicare annual wellness exam Start:04-Jul-2013 Instruction Type:Provider Instructions for Treatment obesity counseling Indication:BMI 33.0-33.9,adult Start:04-Jul-2013 Instruction Type:Provider Instructions for Treatment Patient Instructions Indication:SOB (shortness of breath) on exertion Start:15-Apr-2013 Instruction Type:Provider Instructions for Treatment Patient Instructions Indication:Mild degeneration of cervical intervertebral disc Start:28-Feb-2013 Instruction Type:Provider Instructions for Treatment Patient Instructions Indication:Muscle spasm Start:15-Nov-2012 Instruction Type:Provider Instructions for Treatment Patient Instructions Indication:Mild degeneration of cervical intervertebral disc Start:25-Oct-2012 Instruction Type:Provider Instructions for Treatment Patient Instructions Indication:Depressive disorder Start:21-Oct-2012 Instruction Type:Provider Instructions for Treatment Patient Instructions Indication:Depressive disorder Start:16-Sep-2012 Instruction Type:Provider Instructions for Treatment Name Dates Details How to access health informa tion online Indication:Nonsmoker Start:15-Mar-2019 Instruction Type:Patient Education How to access health informa tion online - Detail Indication:Nonsmoker Start:15-Mar-2019 Instruction Type:Patient Education Patient Instructions Indication:Nonsmoker Start:15-Mar-2019 Instruction Type:Provider Instructions for Treatment How to access health informa tion online Indication:BMI 29.0-29.9,adult Start:21-Jan-2018 Instruction Type:Patient Education How to access health informa tion online - Detail Indication:BMI 29.0-29.9,adult Start:21-Jan-2018 Instruction Type:Patient Education Patient Instructions Indication:BMI 29.0-29.9,adult Start:21-Jan-2018 Instruction Type:Provider Instructions for Treatment How to access health informa tion online Indication:Nonsmoker Start:09-Nov-2017 Instruction Type:Patient Education How to access health informa tion online - Detail Indication:Nonsmoker Start:09-Nov-2017 Instruction Type:Patient Education How to access health informa tion online Indication:Nonsmoker Start:15-Oct-2017 Instruction Type:Patient Education How to access health informa tion online - Detail Indication:Nonsmoker Start:15-Oct-2017 Instruction Type:Patient Education Patient Instructions Indication:Nonsmoker Start:15-Oct-2017 Instruction Type:Provider Instructions for Treatment How to access health informa tion online Indication:Nonsmoker Start:18-Sep-2017 Instruction Type:Patient Education How to access health informa tion online - Detail Indication:Nonsmoker Start:18-Sep-2017 Instruction Type:Patient Education Patient Instructions Indication:Nonsmoker Start:18-Sep-2017 Instruction Type:Provider Instructions for Treatment How to access health informa tion online Indication:Nonsmoker Start:07-May-2017 Instruction Type:Patient Education How to access health informa tion online - Detail Indication:Nonsmoker Start:07-May-2017 Instruction Type:Patient Education Patient Instructions Indication:Nonsmoker Start:07-May-2017 Instruction Type:Provider Instructions for Treatment How to access health informa tion online Indication:Nonsmoker Start:26-Mar-2017 Instruction Type:Patient Education How to access health informa tion online - Detail Indication:Nonsmoker Start:26-Mar-2017 Instruction Type:Patient Education Patient Instructions Indication:Nonsmoker Start:26-Mar-2017 Instruction Type:Provider Instructions for Treatment How to access health informa tion online Indication:Nonsmoker Start:25-Dec-2016 Instruction Type:Patient Education How to access health informa tion online - Detail Indication:Nonsmoker Start:25-Dec-2016 Instruction Type:Patient Education Patient Instructions Indication:Nonsmoker Start:25-Dec-2016 Instruction Type:Provider Instructions for Treatment How to access health informa tion online Indication:Arthritis Start:25-Sep-2016 Instruction Type:Patient Education How to access health informa tion online - Detail Indication:Arthritis Start:25-Sep-2016 Instruction Type:Patient Education Patient Instructions Indication:Arthritis Start:25-Sep-2016 Instruction Type:Provider Instructions for Treatment How to access health informa tion online Indication:Hyperlipidemia Start:25-Jun-2016 Instruction Type:Patient Education How to access health informa tion online - Detail Indication:Hyperlipidemia Start:25-Jun-2016 Instruction Type:Patient Education Patient Instructions Indication:Hyperlipidemia Start:25-Jun-2016 Instruction Type:Provider Instructions for Treatment How to access health informa tion online Indication:Anxiety Start:25-Jun-2016 Instruction Type:Patient Education How to access health informa tion online - Detail Indication:Anxiety Start:25-Jun-2016 Instruction Type:Patient Education Patient Instructions Indication:Anxiety Start:25-Jun-2016 Instruction Type:Provider Instructions for Treatment How to access health informa tion online Indication:Pain, foot, left, chronic Start:21-May-2016 Instruction Type:Patient Education How to access health informa tion online - Detail Indication:Pain, foot, left, chronic Start:21-May-2016 Instruction Type:Patient Education Patient Instructions Indication:Pain, foot, left, chronic Start:21-May-2016 Instruction Type:Provider Instructions for Treatment How to access health informa tion online Indication:Pre-operative examination Start:04-Jan-2016 Instruction Type:Patient Education How to access health informa tion online - Detail Indication:Pre-operative examination Start:04-Jan-2016 Instruction Type:Patient Education Patient Instructions Indication:Pre-operative examination Start:04-Jan-2016 Instruction Type:Provider Instructions for Treatment How to access health informa tion online Indication:Lipoma of buttock Start:06-Dec-2015 Instruction Type:Patient Education How to access health informa tion online - Detail Indication:Lipoma of buttock Start:06-Dec-2015 Instruction Type:Patient Education Patient Instructions Indication:Lipoma of buttock Start:06-Dec-2015 Instruction Type:Provider Instructions for Treatment Patient Instructions Indication:B12 deficiency Start:29-Nov-2015 Instruction Type:Provider Instructions for Treatment obesity counseling Indication:Obstructive sleep apnea, adult Start:24-Oct-2015 Instruction Type:Provider Instructions for Treatment cardiovascular counseling Indication:Coronary artery disease Start:24-Oct-2015 Instruction Type:Provider Instructions for Treatment How to access health informa tion online Indication:Anxiety Start:26-Jul-2015 Instruction Type:Patient Education How to access health informa tion online - Detail Indication:Anxiety Start:26-Jul-2015 Instruction Type:Patient Education Patient Instructions Indication:Anxiety Start:26-Jul-2015 Instruction Type:Provider Instructions for Treatment How to access health informa tion online Indication:Hyperlipidemia Start:19-Apr-2015 Instruction Type:Patient Education How to access health informa tion online - Detail Indication:Hyperlipidemia Start:19-Apr-2015 Instruction Type:Patient Education Patient Instructions Indication:Hyperlipidemia Start:19-Apr-2015 Instruction Type:Provider Instructions for Treatment cardiovascular counseling Indication:Coronary artery disease Start:12-Oct-2014 Instruction Type:Provider Instructions for Treatment Patient Instructions Indication:Headache Start:12-Oct-2014 Instruction Type:Provider Instructions for Treatment Patient Instructions Indication:Headache Start:31-Aug-2014 Instruction Type:Provider Instructions for Treatment How to access health informa tion online Indication:Coronary artery disease Start:13-Jul-2014 Instruction Type:Patient Education How to access health informa tion online - Detail Indication:Coronary artery disease Start:13-Jul-2014 Instruction Type:Patient Education Patient Instructions Indication:Coronary artery disease Start:13-Jul-2014 Instruction Type:Provider Instructions for Treatment Patient Instructions Indication:SYMPTOMS INVOLVING URINARY SYSTEM; DYSURIA Start:17-Apr-2014 Instruction Type:Provider Instructions for Treatment How to access [employer] online Indication:Coronary artery disease Start:06-Apr-2014 Instruction Type:Patient Education How to access [employer] online - Detail Indication:Coronary artery disease Start:06-Apr-2014 Instruction Type:Patient Education Patient Instructions Indication:Coronary artery disease Start:06-Apr-2014 Instruction Type:Provider Instructions for Treatment Patient Instructions Indication:Rib pain on right side Start:22-Dec-2013 Instruction Type:Provider Instructions for Treatment Patient Instructions Indication:Elevated blood-pressure reading without diagnosis of hypertension Start:01-Dec-2013 Instruction Type:Provider Instructions for Treatment Patient Instructions Indication:Depressive disorder Start:01-Aug-2013 Instruction Type:Provider Instructions for Treatment cardiovascular counseling Indication:Encounter for Medicare annual wellness exam Start:04-Jul-2013 Instruction Type:Provider Instructions for Treatment obesity counseling Indication:BMI 33.0-33.9,adult Start:04-Jul-2013 Instruction Type:Provider Instructions for Treatment Patient Instructions Indication:SOB (shortness of breath) on exertion Start:15-Apr-2013 Instruction Type:Provider Instructions for Treatment Patient Instructions Indication:Mild degeneration of cervical intervertebral disc Start:28-Feb-2013 Instruction Type:Provider Instructions for Treatment Patient Instructions Indication:Muscle spasm Start:15-Nov-2012 Instruction Type:Provider Instructions for Treatment Patient Instructions Indication:Mild degeneration of cervical intervertebral disc Start:25-Oct-2012 Instruction Type:Provider Instructions for Treatment Patient Instructions Indication:Depressive disorder Start:21-Oct-2012 Instruction Type:Provider Instructions for Treatment Patient Instructions Indication:Depressive disorder Start:16-Sep-2012 Instruction Type:Provider Instructions for Treatment Name Dates Details How to access health [employer] Indication:Nonsmoker Start:15-Mar-2019 Instruction Type:Patient Education How to access health informa [email or web address] online - Detail Indication:Nonsmoker Start:15-Mar-2019 Instruction Type:Patient Education Patient Instructions Indication:Nonsmoker Start:15-Mar-2019 Instruction Type:Provider Instructions for Treatment How to access health [employer] online Indication:BMI 29.0-29.9,adult Start:21-Jan-2018 Instruction Type:Patient Education How to access health informa tion online - Detail Indication:BMI 29.0-29.9,adult Start:21-Jan-2018 Instruction Type:Patient Education Patient Instructions Indication:BMI 29.0-29.9,adult Start:21-Jan-2018 Instruction Type:Provider Instructions for Treatment How to access health informa tion online Indication:Nonsmoker Start:09-Nov-2017 Instruction Type:Patient Education How to access health informa tion online - Detail Indication:Nonsmoker Start:09-Nov-2017 Instruction Type:Patient Education How to access health informa tion online Indication:Nonsmoker Start:15-Oct-2017 Instruction Type:Patient Education How to access health informa tion online - Detail Indication:Nonsmoker Start:15-Oct-2017 Instruction Type:Patient Education Patient Instructions Indication:Nonsmoker Start:15-Oct-2017 Instruction Type:Provider Instructions for Treatment How to access health informa tion online Indication:Nonsmoker Start:18-Sep-2017 Instruction Type:Patient Education How to access health informa tion online - Detail Indication:Nonsmoker Start:18-Sep-2017 Instruction Type:Patient Education Patient Instructions Indication:Nonsmoker Start:18-Sep-2017 Instruction Type:Provider Instructions for Treatment How to access health informa tion online Indication:Nonsmoker Start:07-May-2017 Instruction Type:Patient Education How to access health informa tion online - Detail Indication:Nonsmoker Start:07-May-2017 Instruction Type:Patient Education Patient Instructions Indication:Nonsmoker Start:07-May-2017 Instruction Type:Provider Instructions for Treatment How to access health informa tion online Indication:Nonsmoker Start:26-Mar-2017 Instruction Type:Patient Education How to access health informa tion online - Detail Indication:Nonsmoker Start:26-Mar-2017 Instruction Type:Patient Education Patient Instructions Indication:Nonsmoker Start:26-Mar-2017 Instruction Type:Provider Instructions for Treatment How to access health informa tion online Indication:Nonsmoker Start:25-Dec-2016 Instruction Type:Patient Education How to access health informa tion online - Detail Indication:Nonsmoker Start:25-Dec-2016 Instruction Type:Patient Education Patient Instructions Indication:Nonsmoker Start:25-Dec-2016 Instruction Type:Provider Instructions for Treatment How to access health informa tion online Indication:Arthritis Start:25-Sep-2016 Instruction Type:Patient Education How to access health informa tion online - Detail Indication:Arthritis Start:25-Sep-2016 Instruction Type:Patient Education Patient Instructions Indication:Arthritis Start:25-Sep-2016 Instruction Type:Provider Instructions for Treatment How to access health informa tion online Indication:Hyperlipidemia Start:25-Jun-2016 Instruction Type:Patient Education How to access health informa tion online - Detail Indication:Hyperlipidemia Start:25-Jun-2016 Instruction Type:Patient Education Patient Instructions Indication:Hyperlipidemia Start:25-Jun-2016 Instruction Type:Provider Instructions for Treatment How to access health informa tion online Indication:Anxiety Start:25-Jun-2016 Instruction Type:Patient Education How to access health informa tion online - Detail Indication:Anxiety Start:25-Jun-2016 Instruction Type:Patient Education Patient Instructions Indication:Anxiety Start:25-Jun-2016 Instruction Type:Provider Instructions for Treatment How to access health informa tion online Indication:Pain, foot, left, chronic Start:21-May-2016 Instruction Type:Patient Education How to access health informa tion online - Detail Indication:Pain, foot, left, chronic Start:21-May-2016 Instruction Type:Patient Education Patient Instructions Indication:Pain, foot, left, chronic Start:21-May-2016 Instruction Type:Provider Instructions for Treatment How to access health informa tion online Indication:Pre-operative examination Start:04-Jan-2016 Instruction Type:Patient Education How to access health informa tion online - Detail Indication:Pre-operative examination Start:04-Jan-2016 Instruction Type:Patient Education Patient Instructions Indication:Pre-operative examination Start:04-Jan-2016 Instruction Type:Provider Instructions for Treatment How to access health informa tion online Indication:Lipoma of buttock Start:06-Dec-2015 Instruction Type:Patient Education How to access health informa tion online - Detail Indication:Lipoma of buttock Start:06-Dec-2015 Instruction Type:Patient Education Patient Instructions Indication:Lipoma of buttock Start:06-Dec-2015 Instruction Type:Provider Instructions for Treatment Patient Instructions Indication:B12 deficiency Start:29-Nov-2015 Instruction Type:Provider Instructions for Treatment obesity counseling Indication:Obstructive sleep apnea, adult Start:24-Oct-2015 Instruction Type:Provider Instructions for Treatment cardiovascular counseling Indication:Coronary artery disease Start:24-Oct-2015 Instruction Type:Provider Instructions for Treatment How to access health informa tion online Indication:Anxiety Start:26-Jul-2015 Instruction Type:Patient Education How to access health informa tion online - Detail Indication:Anxiety Start:26-Jul-2015 Instruction Type:Patient Education Patient Instructions Indication:Anxiety Start:26-Jul-2015 Instruction Type:Provider Instructions for Treatment How to access health informa tion online Indication:Hyperlipidemia Start:19-Apr-2015 Instruction Type:Patient Education How to access health informa tion online - Detail Indication:Hyperlipidemia Start:19-Apr-2015 Instruction Type:Patient Education Patient Instructions Indication:Hyperlipidemia Start:19-Apr-2015 Instruction Type:Provider Instructions for Treatment cardiovascular counseling Indication:Coronary artery disease Start:12-Oct-2014 Instruction Type:Provider Instructions for Treatment Patient Instructions Indication:Headache Start:12-Oct-2014 Instruction Type:Provider Instructions for Treatment Patient Instructions Indication:Headache Start:31-Aug-2014 Instruction Type:Provider Instructions for Treatment How to access health informa tion online Indication:Coronary artery disease Start:13-Jul-2014 Instruction Type:Patient Education How to access health informa tion online - Detail Indication:Coronary artery disease Start:13-Jul-2014 Instruction Type:Patient Education Patient Instructions Indication:Coronary artery disease Start:13-Jul-2014 Instruction Type:Provider Instructions for Treatment Patient Instructions Indication:SYMPTOMS INVOLVING URINARY SYSTEM; DYSURIA Start:17-Apr-2014 Instruction Type:Provider Instructions for Treatment How to access health informa tion online Indication:Coronary artery disease Start:06-Apr-2014 Instruction Type:Patient Education How to access health informa tion online - Detail Indication:Coronary artery disease Start:06-Apr-2014 Instruction Type:Patient Education Patient Instructions Indication:Coronary artery disease Start:06-Apr-2014 Instruction Type:Provider Instructions for Treatment Patient Instructions Indication:Rib pain on right side Start:22-Dec-2013 Instruction Type:Provider Instructions for Treatment Patient Instructions Indication:Elevated blood-pressure reading without diagnosis of hypertension Start:01-Dec-2013 Instruction Type:Provider Instructions for Treatment Patient Instructions Indication:Depressive disorder Start:01-Aug-2013 Instruction Type:Provider Instructions for Treatment cardiovascular counseling Indication:Encounter for Medicare annual wellness exam Start:04-Jul-2013 Instruction Type:Provider Instructions for Treatment obesity counseling Indication:BMI 33.0-33.9,adult Start:04-Jul-2013 Instruction Type:Provider Instructions for Treatment Patient Instructions Indication:SOB (shortness of breath) on exertion Start:15-Apr-2013 Instruction Type:Provider Instructions for Treatment Patient Instructions Indication:Mild degeneration of cervical intervertebral disc Start:28-Feb-2013 Instruction Type:Provider Instructions for Treatment Patient Instructions Indication:Muscle spasm Start:15-Nov-2012 Instruction Type:Provider Instructions for Treatment Patient Instructions Indication:Mild degeneration of cervical intervertebral disc Start:25-Oct-2012 Instruction Type:Provider Instructions for Treatment Patient Instructions Indication:Depressive disorder Start:21-Oct-2012 Instruction Type:Provider Instructions for Treatment Patient Instructions Indication:Depressive disorder Start:16-Sep-2012 Instruction Type:Provider Instructions for Treatment Summary Purpose Advance Directives No Advanced Directives Records Found Advance Directive Response Recorded Date/ Time Advance Directives Yes May 5:27am Living Will Yes May 27, 2019 6:37pm Power of Tools Developer Yes May 6:37pm Advance Directive Response Recorded Date/ Time Advance Directives Yes May 2:39pm Living Will Yes June 04, 2022 2:39pm Power of Tools Developer Yes May 2:39pm Advance Directive Response Recorded Date/ Time Advance Directives Yes July 9:15am Living Will Yes August 01 9:15am Power of Tools Developer Yes August 01, 2022 9:15am Advance Directive Response Recorded Date/ Time Advance Directives Yes July 10:15am Living Will Yes August 01 10:15am Power of Tools Developer Yes August 01, 2022 10:15am Advance Directive Response Recorded Date/ Time Advance Directives Yes July 09, 2023 8:23am Living Will Yes July 09 8:23am Power of Tools Developer Yes July 09, 2023 8:23am Advance Directive Response Recorded Date/ Time Advance Directives Yes July 09, 2023 9:23am Living Will Yes July 09 9:23am Power of Tools Developer Yes July 09, 2023 9:23am Advance Directive Response Recorded Date/ Time Advance Directives Yes July 09, 2023 9:23am Chief Complaint and Reason for Visit Chief Complaint Right hip xray ALF LABWORK MONTHLY EXAM Chief Complaint ALF LABWORK MONTHLY EXAM Chief Complaint ALF LABWORK NEW SYMPTOMS/CONCERN LABWORK MONTHLY EXAM Chief Complaint MONTHLY EXAM MONTH EXAM ALF LAB WORK LEFT KNEE Rm 5 xray Reason for Visit Pes anserinus bursit is of left knee Osteoarthritis of left knee Chief Complaint ALF LAB WOR K LEFT KNEE Rm 5 xray NEW CONCERN/PROBLEM LEFT KNEE room 1 MONTHLY EXAM ALF LABWORK MONTHLY Reason for Visit Pes anserinus bursit is of left knee Osteoarthritis of left knee Pes anserinus bursitis of left knee Osteoarthritis of left knee Chief Complaint NEW CONCERN/PROBLEM LEFT KNEE room 1 MONTHLY EXAM ALF LABWORK MONTHLY MONTHLY EXAM NEW PROBLEM ALF LABWORK Reason for Visit Pes anserinus bursit is of left knee Osteoarthritis of left knee Chief Complaint ALF LABWORK MONTHLY EXAM ALF LAB WORK MONTHLY EXAM NEW CONCERN left knee Reason for Visit Pes anserinus bursit is of left knee Osteoarthritis of left knee Chief Complaint LEFT KNEE RM 5 LABWORK LEFT KNEE LEFT KNEE LEFT KNEE MONTHLY VISIT MONTHLY EXAM ALF LAB WORK Reason for Visit Osteoarthritis of le ft knee Osteoarthritis of left knee Osteoarthritis of left knee Osteoarthritis of left knee Chief Complaint ALF LAB WOR K MONTHLY EXAM - MD MONTHLY EXAM ALF LAB WORK Chief Complaint MONTHLY EXAM MONTHLY EXAM MD ALF LAB WORK MONTHLY EXAM MONTHLY EXAM MD Chief Complaint Admit Date LABWORK August 16, 2024 5 :00am ALF LAB WORK September 16, 2024 5:00am MONTHLY EXAM September 20, 2024 7: 33pm LABWORK October 14, 2024 1 :00am ALF LAB WORK October 17, 2024 5:00am MONTHLY EXAM October 27, 2024 11:58am LABWORK November 14, 2024 5:00 am Chief Complaint Admit Date ALF LAB WORK September 16, 2024 5:00am MONTHLY EXAM September 20, 2024 7: 33pm LABWORK October 14, 2024 1 :00am ALF LAB WORK October 17, 2024 5:00am MONTHLY EXAM October 27, 2024 11:58am LABWORK November 14, 2024 5:00 am MONTHLY EXAM November 15, 2024 5:36 pm LABWORK December 14, 2024 5:00 am Chief Complaint Admit Date LABWORK October 14, 2024 1 :00am ALF LAB WORK October 17, 2024 5:00am MONTHLY EXAM October 27, 2024 11:58am LABWORK November 14, 2024 5:00 am MONTHLY EXAM November 15, 2024 5:36 pm LABWORK December 14, 2024 5:00 am LABWORK January 14, 2025 8:25am Chief Complaint Admit Date LABWORK October 14, 2024 1 :00am ALF LAB WORK October 17, 2024 5:00am MONTHLY EXAM October 27, 2024 11:58am LABWORK November 14, 2024 5:00 am MONTHLY EXAM November 15, 2024 5:36 pm LABWORK December 14, 2024 5:00 am ALF LAB WORK January 12, 2025 5:00 am LABWORK January 14, 2025 8:25am LABWORK January 18, 2025 5:00am Additional Source Comments INFORMATION SOURCE (unrecogn ized section and content) DATE CREATED AUTHOR 10/03/2019 [facility] ([place]) DATE CREATED AUTHOR AUTHOR'S ORGANIZ ATION 02/26/2025 [facility] Goals (unrecognized section and content) Goals may be documented in a n alternate sectionGoals may be documented in an alternate sectionGoals may be documented in an alternate sectionGoals may be documented in an alternate sectionGoals may be documented in an alternate sectionGoals may be documented in an alternate sectionGoals may be documented in an alternate sectionGoals may be documented in an alternate sectionGoals may be documented in an alternate sectionGoals may be documented in an alternate sectionGoals may be documented in an alternate sectionGoals may be documented in an alternate sectionGoals may be documented in an alternate sectionGoals may be documented in an alternate section Care Teams (unrecognized sec tion and content) Team Status: Active Member Role Status Dates Dr. Mirella Mccracken DO Family Provider Active Dr. Cl Tsang MD Primary Care Provider Active Team Status: Inactive Member Role Status Dates Dr. Cl Tsang MD Primary Care Provider, Referrin g Provider Active Sabrina YATES PA Attending Provider Active Team Status: Inactive Member Role Status Dates Dr. Cl Tsang MD Primary Care Provider Active Dr. Thom Montiel MD Attending Provider Active Team Status: Inactive Member Role Status Dates Dr. Cl Tsang MD Primary Care Provider, Referrin g Provider Active Dr. Tomas Aleman DO Attending Provider Active Team Status: Inactive Member Role Status Dates Dr. Cl Tsang MD Primary Care Provider Active Zeina Balbuena RESIDENTIAL CAREGIVER, RESIDENTIAL CAREGIVER-C Attending Provider Active Team Status: Inactive Member Role Status Dates Dr. Cl Tsang MD Primary Care Provider Active Dr. Yesika Faust MD Attending Provider Active Team Status: Inactive Member Role Status Dates Dr. Cl Tsang MD Primary Care Provider Active Yesika VICENTE MD Attending Provider Active Team Status: Inactive Member Role Status Dates Dr. Cl Tsang MD Primary Care Provider Active Cl VICENTE MD Attending Provider Active Team Status: Inactive Member Role Status Dates Dr. lC Tsang MD Primary Care Provider Active TRUDY Blanco Attending Provider Active Team Status: Inactive Member Role Status Dates Dr. Cl Tsang MD Primary Care Provider Active FANTASMA Osorio Attending Provider Active Team Status: Active Member Role Status Dates Dr. Mirella Mccracken DO Family Provider Active Dr. Yesika Faust MD Primary Care Provider Active Team Status: Inactive Member Role Status Dates Dr. Yesika Faust MD Primary Care Provider Active Start: August 16, 2024 End: August 16, 2024 Yesika VICENTE MD Attending Provider Active Start: August 16, 2024 End: August 16, 2024 Team Status: Active Member Role Status Dates Dr. Yesika Faust MD Primary Care Provider Active Start: September 16, 2024 Yesika VICENTE MD Attending Provider Active Start: September 16, 2024 Team Status: Inactive Member Role Status Dates Dr. Yesika Faust MD Primary Care Provider Active Start: September 20, 2024 End: September 20, 2024 Dr. Yesika Faust MD Attending Provider Active Start: September 20, 2024 End: September 20, 2024 Team Status: Active Member Role Status Dates Dr. Yesika Faust MD Primary Care Provider Active Start: October 14, 2024 Yesika VICENTE MD Attending Provider Active Start: October 14, 2024 Team Status: Active Member Role Status Dates Dr. Yesika Faust MD Primary Care Provider Active Start: October 17, 2024 Yesika VICENTE MD Attending Provider Active Start: October 17, 2024 Team Status: Inactive Member Role Status Dates Dr. Yesika Faust MD Primary Care Provider Active Start: October 27, 2024 End: October 27, 2024 TRUDY Blanco Attending Provider Active St art: October 27, 2024 End: October 27, 2024 Team Status: Inactive Member Role Status Dates Dr. Yesika Faust MD Primary Care Provider Active Start: November 14, 2024 End: November 14, 2024 Yesika VICENTE MD Attending Provider Active Start: November 14, 2024 End: November 14, 2024 Team Status: Active Member Role Status Dates Dr. Yesika Faust MD Primary Care Provider Active Start: December 14, 2024 Yesika VICENTE MD Attending Provider Active Start: December 14, 2024 Team Status: Inactive Member Role Status Dates Dr. Yesika Faust MD Primary Care Provider Active Start: November 15, 2024 End: November 15, 2024 Dr. Yesika Faust MD Attending Provider Active Start: November 15, 2024 End: November 15, 2024 Team Status: Inactive Member Role Status Dates Dr. Yesika Faust MD Primary Care Provider Active Start: December 14, 2024 End: December 14, 2024 Yesika VICENTE MD Attending Provider Active Start: December 14, 2024 End: December 14, 2024 Team Status: Active Member Role Status Dates Dr. Yesika Faust MD Primary Care Provider Active Start: January 12, 2025 Yesika VICENTE MD Attending Provider Active Start: January 12, 2025 Team Status: Inactive Member Role Status Dates Dr. Yesika Faust MD Primary Care Provider Active Start: January 14, 2025 End: January 14, 2025 Yesika VICENTE MD Attending Provider Active Start: January 14, 2025 End: January 14, 2025 Team Status: Active Member Role Status Dates Dr. Yesika Faust MD Primary Care Provider Active Start: January 18, 2025 Yesika VICENTE MD Attending Provider Active Start: January 18, 2025 Team Status: Active Member Role Status Dates Dr. Yesika Faust MD Primary Care Provider Active Start: January 23, 2025 FANTASMA Beauchamp Attending Provider Active Start: January 23, 2025 Team Status: Inactive Member Role Status Dates Dr. Yesika Faust MD Primary Care Provider Active Start: January 12, 2025 End: January 12, 2025 Yesika VICENTE MD Attending Provider Active Start: January 12, 2025 End: January 12, 2025 Team Status: Inactive Member Role Status Dates Dr. Yesika Faust MD Primary Care Provider Active Start: January 18, 2025 End: January 18, 2025 Yesika VICENTE MD Attending Provider Active Start: January 18, 2025 End: January 18, 2025 FOR RECORDS PERTAINING TO PATIENTS WHO ARE OR HAVE BEEN ENROLLED IN A CHEMICAL DEPENDENCY/SUBSTANCEABUSE PROGRAM, SOME INFORMATION MAY BE OMITTED. This clinical summary was aggregated from multiple sources. Caution should be exercised in using it in the provision of clinical care. This summary normalizes information from multiple sources, and as a consequence, information in this document may materially change the coding, format and clinical context of patient data. In addition, data may be omitted in some cases. CLINICAL DECISIONS SHOULD BE BASED ON THE PRIMARY CLINICAL RECORDS. [employer] provides no warranty or guarantee of the accuracy or completeness of information in this document.
--- OUTSIDE RECORDS SUMMARY | 2025-02-27 04:20 | XMS RPT_ITS | CCD ---
Author Organization [facility] Inform ion Partnership [facility] Care Team Providers Care Branch Logistics Supervisor Name Role Phone Hung Davison Unavailable Unavailable NicoleMirella jiang Unavailable Armando Gutierrez Unavailable [facility], [facility] Unavailable Art Curry Unavailable Alba Sargent Unavailable Amita Antoine Unavailable Dick Morris Unavailable [facility] Unavailable [phone] Kya Valdivia Unavailable Joe Skinner Unavailable Alyson Dixon Unavailable Unavailable Unavailable Unavailable TRUDY Chambers Attending Provider Dr. Cl Tsang Primary Care Provider MD Cl Tsang Referring Provider Unavailable Dr. Thom Montiel Attending Provider TRUDY Chambers Referring Provider Esha DRYERMAN/WOMAN, DRYERMAN/WOMAN-C Zeina Attending Provider Dr. Cl Williamson Primary Care Provider Dr. Cl Tsang Primary Care Provider Esha DRYERMAN/WOMAN, DRYERMAN/WOMAN-C Zeina Attending Provider Dr. Cl Williamson Primary Care Provider Esha DRYERMAN/WOMAN, DRYERMAN/WOMAN-C Zeina Attending Provider Dr. Cl Williamson Referring Provider TRUDY Chambers Attending Provider [phone] Dr. Thom Montiel Attending Provider Dr. Cl Tsang Primary Care Provider Dr. Cl Tsang Referring Provider TRUDY Chambers Attending Provider [phone] Dr. Thom Montiel Attending Provider Esha DRYERMAN/WOMAN, DRYERMAN/WOMAN-C Zeina Attending Provider Dr. Tomas Humphrey Attending Provider [phone] Dr. Yesika Faust Attending Provider [phone] Dr. Cl Tsang Primary Care Provider Dr. Cl Tsang Referring Provider Dr. Thom Montiel Attending Provider [phone] Cl Tsang Primary Care Provider Esha DRYERMAN/WOMAN, DRYERMAN/WOMAN-Lio Pastrana Attending Provider Dr. Yesika Reed Attending Provider [phone] Dr. Cl Tsang Referring Provider TRUDY Chambers Attending Provider [phone] Dr. Cl Tsang Primary Care Provider Dr. Cl Tsang Referring Provider TRUDY Chambers Attending Provider [phone] Dr. Thom Montiel Attending Provider [phone] Esha DRYERMAN/WOMAN, DRYERMAN/WOMAN-C Zeina Attending Provider Dr. Yesika Reed Attending [...] Dr. Napoles Attending Provider [phone] Esha DRYERMAN/WOMAN-C, Zeina Attending Provider [phone] Oleghe, Efewongbe Primary Care Unavailable Esha DRYERMAN/WOMANZeina Attending Unavailable Oleghe OLS, Efewongbe Attending Unavailabl e Oleghe, Efewongbe Primary Care Unavailable Oleghe OLS, Efewongbe Attending Unavailabl e Oleghe, Efewongbe Primary Care Unavailable [place] DRYERMAN/WOMANZeina Attending Unavailable Oleghe, Efewongbe Primary Care Unavailable [...] Unavailable Oleghe, Efewongbe Primary Care Unavailable Carmen Shaikh Attending Unavailable Oleghe, Efewongbe Primary Care Unavailable [place] DRYERMAN/WOMANZeina Attending Unavailable Oleghe, Efewongbe Primary Care Unavailable Oleghe, Efewongbe Attending Unavailable Oleghe, Efewongbe Primary Care Unavailable Oleghe, Efewongbe Primary Care Unavailable [place] DRYERMAN/WOMAN, Zeina Attending Unavailable Oleghe OLS, Efewongbe Attending [...] Unavailable Oleghe, Efewongbe Primary Care Unavailable [place] DRYERMAN/WOMAN, Zeina Attending Unavailable Oleghe, Efewongbe Primary Care Unavailable Oleghe OLS, Efewongbe Attending Unavailabl e Oleghe, Efewongbe Primary Care Unavailable [place] DRYERMAN/WOMAN, Zeina Attending Unavailable Oleghe, Efewongbe Primary Care Unavailable Oleghe OLS, Efewongbe Attending Unavailabl e Oleghe, Efewongbe Attending Unavailable Oleghe, Efewongbe Primary Care Unavailable [place] DRYERMAN/WOMAN, Zeina Attending Unavailable Oleghe, Efewongbe Primary Care Unavailable Oleghe OLS, Efewongbe Attending Unavailabl e Oleghe, Efewongbe Primary Care Unavailable Oleghe, Efewongbe Primary Care Unavailable Oleghe OLS, Efewongbe Attending Unavailabl e Allergies Allergy Classification Reported Allergen(s) Allergy Type Date of Onset Reaction(s) Facility (2 sources) acetaminophen / HYDROcodone; Translations: [VICODIN] allergy to substance 05-08-20 11 [facility] Work Phone: (14 sources) HYDROcodone; Translations: [HYDROCODONE] allergy to substance 12-30-19 12 Other [facility] Work Phone: (1 source) Sulfonamides (Antibiotic) drug allergy [facility] Work Phone: (18 sources) Acetaminophen [...] (11 sources) Acetaminophen Drug Allergy 09-01-20 Other [facility] (11 sources) Sulfamethoxazole Drug Allergy 09-01-20 [facility] (1 source) Acetaminophen Drug Allergy 02-07-20 24 [facility] (1 source) Sulfamethoxazole Drug Allergy 02-07-20 24 [facility] Medications Current Medications Medication Drug Class(es) [...] TABS One tablet by mouth daily ASPIRIN [id number] Kaelyn Ellis RN Start: 11-12-2011 End: 11-12-2011 ASPIRIN LOW DOSE, 81MG (Oral Tablet Delayed Release) [address] qd for 0 days Quantity: 30 {Tablet_DR} Refills: 0 Ordered: 12-Nov-2011 Mirella Mccracken DO, DO, Kathleen Start : 12-Nov-2011 End : 12-Nov-2011 Discontinued End: 04-12-2012 take 1 tablet by mouth once daily ASPIRIN EC 81 MG TBEC One tablet by mouth daily ASPIRIN [id number] Jose Vargas MD cloNIDine hydrochloride 0.1 mg [...] hand docusate sodium 50 mg / sennosides, mcc 8.6 mg oral tablet (4 sources) Start: [...] 12:00am Start: 02-07-2024 take 1 capsule by [facility] once daily Duloxetine 60 mg capsule,delayed release(DR/EC) [...] One tablet by mouth daily DULOXETINE HCL [id number] Jose Vargas MD Comment on above: substitute [...] 2021 1:00am September 30, 2024 5:08pm Vit C,C-Fi-Icewf-Lutein-Zeax an (10 sources) Start: 05-13-2019 Vit C,E-Zn-Seismic Interpreter zq-Uamfdz-Pblxqu Active 1 EACH PO DAILY May 13, 2019 9:27am Start: 05-13-2019 End: 05-21-2023 Vit C,I-Lz-Uluqr-Lutein-Zeax an Discontinued 1 EACH PO DAILY May 13, 2019 12:00am May 21, 2023 10:07am Start: 05-13-2019 End: 05-21-2023 Vit C,Y-Tm-Iroon-Lutein-Zeax an Discontinued 1 EACH PO DAILY May 12, 2019 11:00pm May 21, 2023 9:07am Start: 05-13-2019 Vit C,E-Zn-Seismic Interpreter wq-Iwvttw-Cidrao Active 1 EACH PO DAILY May 12, 2019 11:00pm Start: 05-13-2019 Vit C,E-Zn-Seismic Interpreter gs-Vghfwp-Owmvyk Active 1 EACH PO DAILY May 13, 2019 12:00am Completed/Discontinued Medications Medication Drug Class(es) Dates Sig (Normalized) Sig (Original) HYDROCODONE-ACETAM INOPHEN (2 sources) Opioid Agonist Start: 05-07-2016 take 1 tablet by mouth once daily at bedtime NORCO 5-325 MG TABS One tablet by mouth daily @ bedtime HYDROCODONE-ACETAMI NOPHEN [id number] Jose Vargas MD Start: 05-07-2016 End: 06-05-2017 take 1 tablet by mouth once daily at bedtime NORCO 5-325 MG TABS One tablet by mouth daily @ bedtime HYDROCODONE-ACETAMINOPHEN [id number] Jose Vargas MD acetaminophen 325 mg / [...] PERCOCET 5-325 MG TABS As needed OXYCODONE-ACETAMINOPHEN [id number] Kaelyn Ellis RN Start: 12-07-2013 PERCOCET 5-325 MG TABS As needed OXYCODONE-ACETAMINOPHEN [id number] Zaria Trevino PA-C Start: 12-07-2013 End: 11-05-2015 PERCOCET 5-325 MG TABS As ne eded OXYCODONE-ACETAMINOPHEN [id number] Zaria Trevino PA-C Start: 02-10-2013 PERCOCET 10-32 5 MG TABS As needed OXYCODONE-ACETAMINOPHEN [id number] Jose Vargas MD Comment on above: thirty [...] One tablet by mouth daily AMIODARONE HCL [id number] Jose Vargas MD Start: 11-25-2011 take 1 tablet by jeffry th twice daily AMIODARONE HCL 200 MG TABS One tablet by mouth twice daily AMIODARONE HCL [id number] Jose Vargas MD amoxicillin 500 mg oral [...] One tablet by mouth daily ATORVASTATIN CALCIUM [id number] Zaria Trevino PA-C Start: 11-25-2011 End: 04-06-2014 [...] tablet by mouth daily CALCIUM CARBONATE TABS [id number] Dick Morris DO calcium carbonate / vitamin D (2 sources) Start: 01-06-2012 take 1 tablet by mouth once daily CALCIUM + D 600-200 MG-UNIT TABS One tablet by mouth daily CALCIUM CARBONATE-VITAMIN D [id number] Jose Vargas MD Start: 01-06-2012 End: 04-12-2012 take 1 tablet by mouth once daily CALCIUM + D 600-200 MG-UNIT TABS One tablet by mouth daily CALCIUM CARBONATE-VITAMIN D [id number] Jose Vargas MD casanthranol 30 mg / [...] capsule by mouth every week VITAMIN D3, [id number] (Oral Capsule) 1 (one) Capsule Capsule q week for 0 days Quantity: 4 {Capsule} Refills: 3 Ordered: 29-Nov-2015 Alyson Dixon LPN Start : 13-Jul-2014 End : 29-Nov-2015 Inactive Start: 01-06-2012 End: 04-12-2012 take 1 tablet by mouth once daily VITAMIN D 2000 UNIT TABS One tablet by mouth daily CHOLECALCIFEROL [id number] Jose Vargas MD ciprofloxacin 500 mg oral [...] for 7 days Refills: 0 Ordered: 15-Dec-2011 Mirelal Mccracken DO, DO, Kathleen Start : 26-Nov-2011 [...] One tablet by mouth daily CRANBERRY CAPS [id number] Zaria Trevino PA-C CRANBERRY-VITAMIN C, 84-20MG (Oral [...] 0.05 % OINT apply twice daily DESONIDE [id number] Dick Morris DO desoximetasone 2.5 mg/ml topical cream (20 sources) Corticosteroid Start: 05-07-2011 End: 06-05-2011 TOPICORT, 0.25% (External Cream) 1 Cream bid for 0 days Quantity: 1 {Cream} Refills: 0 Ordered: 05-Jun-2011 Alyson Dixon LPN Start : 07-May-2011 End : 05-Jun-2011 Inactive TOPICORT 0.25 % CREA apply twice daily DESOXIMETASONE [id number] Dick Morris DO End: 04-12-2012 TOPICORT 0.25 % CREA apply t wice daily DESOXIMETASONE [id number] Jose Vargas MD diazePAM 2 mg oral [...] tablet by mouth twice daily DIPHENHYDRAMINE HCL 85220306811 Mary Nolen RN ergocalciferol 79507 unt oral capsule (20 sources) Provitamin D2 Compound Start: 01-12-2009 End: 04-13-2014 take 1 capsule by mouth every week ERGOCALCIFEROL, [id number] (Oral Capsule) 1 Capsule 2 x week for 0 days Quantity: 8 {Capsule} Refills: 3 Ordered: 13-Apr-2014 Alyson Dixon LPN Start : 12-Jan-2009 End : 13-Apr-2014 Inactive End: 01-06-2012 VITAMIN D (ERGOCALCIFEROL) 5 0000 UNIT CAPS one tablet twice a week ERGOCALCIFEROL [id number] Dick Morris DO estradiol 0.025 mg vaginal [...] tablet by mouth three times daily GABAPENTIN [id number] Jose Vargas MD Start: 02-10-2013 End: 11-05-2015 take 1 tablet by mouth twice daily GABAPENTIN 600 MG TABS One tablet by mouth twice daily GABAPENTIN [id number] Zaria Trevino PA-C Start: 01-06-2012 take 1 tablet by jeffry th three times daily NEURONTIN 100 MG CAPS One tablet by mouth three times daily GABAPENTIN [id number] Jose Vargas MD hydrOXYzine hydrochloride 50 mg [...] once daily ISOSORBIDE MONONITRATE ER 30 MG [id number] One tablet by mouth daily (Imdur) ISOSORBIDE MONONITRATE [id number] Zaria Trevino PA-C Start: 04-27-2013 take 1 tablet by jeffry th once daily IMDUR 60 MG [id number] One tablet by mouth daily ISOSORBIDE MONONITRATE [id number] Jose Vargas MD Start: 03-09-2013 take 1 tablet by jeffry th once daily IMDUR 30 MG [id number] One tablet by mouth daily ISOSORBIDE MONONITRATE [id number] Jose Vargas MD [id number]-[id number] TAB S (2 sources) take 1 tablet by mouth once daily CEREFOLIN TABS One tablet by mouth daily G-[id number]-B19-B6-B2 TABS [id number] Dick Morris DO End: 12-22-2011 take 1 tablet by mouth once daily CEREFOLIN TABS One tablet by mouth daily [id number]-P75-B6-B2 TABS [id number] Mary Nolen RN lisinopril 5 mg oral tablet (20 sources) Angiotensin Converting Enzyme Inhibitor Start: 04-24-2014 End: 06-27-2014 take 1 tablet by mouth once daily LISINOPRIL 2.5 MG TABS One tablet by mouth daily LISINOPRIL [id number] Kaelyn Ellis RN Start: 12-07-2013 End: 04-10-2014 take 1 tablet by mouth once daily LISINOPRIL 5 MG TABS One tablet by mouth daily LISINOPRIL [id number] Jose Vargas MD Start: 04-27-2013 End: 11-05-2015 [...] TABS One tablet by mouth daily LUTEIN [id number] Zaria Trevino PA-C End: 07-08-2012 take 1 tablet by mouth once daily LUTEIN CAPS One tablet by mouth daily LUTEIN CAPS [id number] Dick Morris DO melatonin 3 mg / [...] TABS One tablet by mouth daily MELOXICAM [id number] Zaria Trevino PA-C metaxalone 800 mg oral [...] tablet by mouth twice daily METOPROLOL TARTRATE [id number] Jose Vargas MD Start: 03-11-2012 End: 04-06-2014 [...] tablet by mouth twice daily METOPROLOL TARTRATE [id number] Jose Vargas MD Multivitamin preparation (18 sources) End: 11-29-2015 MULTIVITAMIN (Oral Liquid) for 0 days Refills: 0 Ordered: 29-Nov-2015 Alyson Dixon LPN End : 29-Nov-2015 Inactive nitroglycerin 0.4 mg sublingual tablet (20 sources) Nitrate Vasodilator Start: 01-06-2012 End: 04-10-2014 NITROSTAT 0.4 MG SUBL 1 tablet under tongue every 5 min up to 3 X NITROGLYCERIN [id number] Jose Vargas MD Start: 12-26-2011 End: 11-29-2015 [...] CPDR One capsule by mouth daily OMEPRAZOLE [id number] Lex Munoz Start: 12-31-2011 End: 06-20-2013 PRILOSEC, 20MG (Oral Capsule Delayed Release) [address] qd for 0 days Quantity: 30 {Capsule_DR} Refills: 0 Ordered: 20-Jun-2013 FRANCI Castelan Start : 31-Dec-2011 End : 20-Jun-2013 Inactive End: 12-22-2011 take 1 tablet by mouth once daily PRILOSEC 10 MG CPDR One tablet by mouth daily OMEPRAZOLE [id number] Dick Morris DO pantoprazole 20 mg delayed release oral tablet (2 sources) Proton Pump Inhibitor End: 04-12-2012 take 1 tablet by mouth once daily PROTONIX 20 MG TBEC One tablet by mouth daily PANTOPRAZOLE SODIUM 85643664137 Jose Vargas MD pravastatin sodium 80 mg [...] Three tablets by mouth daily PREDNISONE TABS [id number] Mary Nolen RN take 3 tablets by mo uth once daily PREDNISONE TABS Three tablets by mouth daily PREDNISONE TABS [id number] Dick Morris DO rosuvastatin calcium 10 mg [...] One tablet by mouth daily ROSUVASTATIN CALCIUM [id number] Jose Vargas MD Comment on above: substitute generic Mail order. DOCUSATE SODIUM CAPS (2 sources) COLACE CAPS as n eeded DOCUSATE SODIUM CAPS [id number] Dick Morris DO End: 10-10-2014 COLACE CAPS as needed 10/10 DOCUSATE SODIUM CAPS [id number] Zaria Trevino PA-C 28 actuat teriparatide 0.02 [...] mouth once daily DETROL LA 4 MG [id number] One tablet by mouth daily TOLTERODINE TARTRATE [id number] Mary Nolen RN take 1 tablet by jeffry th once daily DETROL LA 4 MG [id number] One tablet by mouth daily TOLTERODINE TARTRATE [id number] Dick Morris DO traMADol hydrochloride 50 mg [...] 60 {Tablet} Refills: 0 Ordered: 26-Nov-2011 Mirella Mccracken DO, DO, Kathleen Start : 26-Nov-2011 End : 26-Nov-2011 Discontinued Comments: [age]-- after bypass surgery take 1 tablet by jeffry th three times daily ULTRAM TABS One tablet by mouth three times daily TRAMADOL HCL TABS [id number] Dick Morris DO End: 12-22-2011 take 1 tablet by mouth three times daily ULTRAM TABS One tablet by mouth three times daily TRAMADOL HCL TABS [id number] Mary Nolen RN Comment on above: [age]-- [...] : 01-Dec-2013 End : 06-Apr-2014 Inactive Vit C,B-Eh-Ephak-Lutein-Ze axan 1 EACH capsule (4 sources) Start: 019 End: 023 take 1 capsule by mouth once daily Vit C,I-Ja-Lblpn-Lutein-Z eaxan 1 EACH capsule Discontinued 1 NMA PO DAILY May 13, 2019 12:00am May 21, 2023 10:07am CHOLECALCIFEROL (4 sources) Start: 016 End: 016 take 1 tablet by mouth once daily VITAMIN D 1000 UNIT TABS One tablet by mouth daily CHOLECALCIFEROL [id number] Zaria Trevino PA-C Start: 11-02-2015 take 1 tablet by [facility] once daily VITAMIN D 1000 UNIT TABS One tablet by mouth daily CHOLECALCIFEROL [id number] Mary Nolen RN Start: 02-10-2013 End: 10-10-2014 take 1 tablet by mouth once daily VITAMIN D 1000 UNIT TABS One tablet by mouth daily CHOLECALCIFEROL [id number] Zaria Trevino PA-C Start: 02-10-2013 take 1 tablet by jeffry th once daily VITAMIN D 1000 UNIT TABS One tablet by mouth daily CHOLECALCIFEROL [id number] Jose Vargas MD Problems Active Problems Problem [...] disease (20 sources) Atherosclerotic heart disease of [place] coronary artery without angina pectoris; Translations: [Coronary [...] current use of drug therapy; Translations: [Other ocean transportation intermediary (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 therapy] 11-23-2017 Episodic Other bone [...] (current) use of other medications; Translations: [Other usp (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 therapy] Onset: 07-08-2013 Resolved: 05-11-2015 [...] p laced her on asa-- cardio at [facility]- he said no more plavix ever- rec [...] p laced her on asa-- cardio at [facility]- he said no more plavix ever- rec [...] Potassium (Unsp spec) [Mass/Vol] 3.8 mmol/L 3.3-5.1 [facility] Absolute lymphocyte countOrd ered By: Yesika Faust on 01-18-2025 Lymphocytes Auto (Unsp spec) [#/Vol] 1.51 10*3/uL 0.83-4.51 [facility] Absolute neutrophil countOrd ered By: Yesika Faust on 01-18-2025 Neutrophils (Bld) [#/Vol] 3.9 10*3/uL 2.0-7.7 [facility] Anion gap in Serum or Plasma Ordered By: Yesika Faust on 01-18-2025 Anion gap [Moles/Vol] 12 mmol/L 5-15 [facility] Automated lymphocyte count a s percentage of total leukocytesOrdered By: Yesika Faust on 01-18-2025 Lymphocytes/100 WBC Auto (Unsp spec) 23.4 % 19-41 [facility] BUN/creatinine ratioOrdered By: Yesika Faust on 01-18-2025 Urea nitrogen/Creatinine [Mass ratio] 36.2 mg/mg High 10-20 [facility] Basophil percentageOrdered B y: Yesika Faust on 01-18-2025 Basophils/100 WBC (Bld) 0.6 % 0-1 [facility] Bilirubin directOrdered By: Yesika Faust on 01-18-2025 Bilirubin.direct [Mass/Vol] 0.11 mg/dL 0.00-0.30 [facility] Bilirubin, totalOrdered By: Yesika Faust on 01-18-2025 Bilirubin [Mass/Vol] 0.25 mg/dL 0.00-1.30 [facility] Carbon dioxide, total [Moles /volume] in Central venous bloodOrdered By: Yesika Faust on 01-18-2025 CO2 [Moles/Vol] 22.7 mmol/L 21.0-32.0 [facility] Chloride assayOrdered By: Tad Faust on 01-18-2025 Chloride [Moles/Vol] 107 mmol/L 98-108 [facility] Eosinophil percentageOrdered By: Yesika Faust on 01-18-2025 Eosinophils/100 WBC (Bld) 6.1 % High 0-5 [facility] Erythrocyte distribution wid th ratioOrdered By: Yesika Faust on 01-18-2025 Erythrocyte distribution width (RBC) [Ratio] 13.4 % 11.6-14.6 [facility] Erythrocyte distribution wid th standard deviationOrdered By: Yesika Faust on 01-18-2025 Erythrocyte distribution width (RBC) [Ratio] 46.6 fl High 35.1-43.9 [facility] Glomerular filtration rate ( GFR) estimation/1.73 sq m using serum, plasma, or whole bOrdered By: Yesika Faust on 01-18-2025 GFR/1.73 sq M.predicted among non-blacks MDRD (S/P/Bld) [Vol rate/Area] 80 mL/min/{1.73_m2} >60 [facility] Comment on above: mL/min/1.73m2 CKD-EP I Creatinine Equation (2020) Hematocrit Auto (Bld) [Volum e fraction]Ordered By: ky Faust on 01-18-2025 Hematocrit (Bld) [Volume fraction] 42.1 % 37-47 [facility] Hemoglobin measurementOrdere d By: Yesika Faust on 01-18-2025 Hemoglobin (Bld) [Mass/Vol] 14.2 g/dL 12.0-15.0 [facility] Immature granulocytes/100 WB C Auto (Bld)Ordered By: Yesika Faust 01-18-2025 Immature granulocytes/100 WBC (Bld) 0.500 % 0.0-0.9 [facility] Comment on above: IG% - Immature Granu locytes (promyelocytes, myelocytes and metamyelocytes) > 1% indicates that a LEFT SHIFT is Present. Laboratory - Chemistry and C hemistry - challengeOrdered By: Yesika Faust on 01-18-2025 AST [Catalytic activity/Vol] 19 U/L <32 [facility] MCV (mean corpuscular volume ) determinationOrdered By: Yesika Faust 01-18-2025 MCV (RBC) [Entitic vol] 94.4 fL 81-99 [facility] Mean corpuscular hemoglobin (MCH) determinationOrdered By: Yesika Faust on 01-18-2025 MCH (RBC) [Entitic mass] 31.8 pg 27.0-32.0 [facility] Mean corpuscular hemoglobin concentration (MCHC) determinationOrdered By: Yesika Faust on 01-18-2025 MCHC (RBC) [Mass/Vol] 33.7 g/dL 32-36 [facility] Mean platelet volume determi nationOrdered By: Yesika Faust on 01-18-2025 Platelet mean volume (Bld) [Entitic vol] 11.6 fL 6.2-12.0 [facility] Monocyte percentageOrdered B y: Yesika Faust on 01-18-2025 Monocytes/100 WBC (Bld) 9.3 % 0-10 [facility] Neutrophil percentageOrdered By: Yesika Faust on 01-18-2025 Neutrophils/100 WBC (Bld) 60.1 % 47-70 [facility] Nucleated red blood cell per centageOrdered By: Yesika Faust on 01-18-2025 Nucleated RBC/100 WBC (Bld) [Ratio] 0 % 0-5 [facility] Platelet countOrdered By: Tad Faust on 01-18-2025 Platelet count TNP [facility] Comment on above: Test not performedPl ease [...] Platelets LM Ql (Bld) SLT DEC ADEQ [facility] Potassium measurement (mass/ volume)Ordered By: Yesika Faust on 01-18-2025 Potassium (Unsp spec) [Mass/Vol] 5.6 mmol/L High 3.3-5.1 [facility] RBC Auto (Bld) [#/Vol]Ordere d By: Yesika Faust on 01-18-2025 RBC (Bld) [#/Vol] 4.46 10*6/uL 4.2-5.[address] [facility] Serum creatinine measurement (mass/volume)Ordered By: Yesika Faust on 01-18-2025 Creatinine [Mass/Vol] 0.73 mg/dL 0.70-1.20 [facility] Serum globulin measurementOr dered By: Yesika Faust on 01-18-2025 Globulin (S) [Mass/Vol] 2.5 g/dL 2.2-4.2 [facility] Serum glucose measurement (m ass/volume)Ordered By: Yesika Faust on 01-18-2025 Glucose [Mass/Vol] 84 mg/dL 70-99 [facility] Serum or plasma alanine vela otransferase (ALT) measurementOrdered By: Yesika Faust on 01-18-2025 ALT [Catalytic activity/Vol] 14 U/L <35 [facility] Serum or plasma albumin madi urement (mass/volume)Ordered By: Yesika Faust on 01-18-2025 Albumin [Mass/Vol] 3.7 g/dL 3.4-4.8 [facility] Serum or plasma alkaline mariaelena sphatase measurementOrdered By: Yesika Faust on 01-18-2025 ALP [Catalytic activity/Vol] 106 U/L High 35-104 [facility] Serum or plasma calcium madi urement (mass/volume)Ordered By: Yesika Faust on 01-18-2025 Calcium [Mass/Vol] 9.1 mg/dL 7.6-11.0 [facility] Serum or plasma urea nitroge n measurement (mass/volume)Ordered By: Yesika Faust on 01-18-2025 Urea nitrogen [Mass/Vol] 27 mg/dL High 4-19 [facility] Sodium levelOrdered By: Jed Faust on 01-18-2025 Sodium [Moles/Vol] 141 mmol/L 133-145 [facility] Total proteinOrdered By: Randall Faust on 01-18-2025 Protein [Mass/Vol] 6.1 g/dL 5.9-8.4 [facility] White blood cell (WBC) count Ordered By: Yesika Faust on 01-18-2025 WBC (Bld) [#/Vol] 6.4 10*3/uL 4.4-11.0 [facility] Bilirubin Test strip Ql (U)O rdered By: Yesika Faust on 01-14-2025 Bilirubin Ql (U) Negative Negative [facility] Ketones Test strip Ql (U)Ord ered By: Yesika Faust on 01-14-2025 Ketones Ql (U) Negative Negative [facility] Nitrite Test strip Ql (U)Ord ered By: Yesika Faust on 01-14-2025 Nitrite Ql (U) Negative Negative [facility] Protein Test strip Ql (U)Ord ered By: Yesika Faust on 01-14-2025 Protein Ql (U) 30 mg/dl High Negative [facility] Urine clarityOrdered By: Randall Faust on 01-14-2025 Clarity (U) Cloudy Clear [facility] Urine color determinationOrd ered By: Yesika Faust on 01-14-2025 Color (U) Yellow Yellow [facility] Urine cultureOrdered By: Randall Faust on 01-14-2025 Bacteria identified Cx Nom (U) Proteus mirabilis Abnormal [facility] Urine glucose detectionOrder ed By: Yesika Faust on 01-14-2025 Glucose Ql (U) Normal mg/dl Normal [facility] Urine leukocyte esterase det ection by dipstickOrdered By: Yesika Faust on 01-14-2025 Leukocyte esterase Test strip Ql (U) 500 /ul High Negative [facility] Urine pHOrdered By: Fernando Faust on 01-14-2025 pH (U) 7.0 [pH] 5.0 - 8.0 [facility] Urine specific gravity measu rementOrdered By: Yesika Faust on 01-14-2025 Specific gravity (U) [Rel density] 1.010 1.002-1.03 0 [facility] Urine urobilinogen measureme ntOrdered By: Yesika Faust on 01-14-2025 Urobilinogen Ql (U) Normal mg/dl Normal [facility] Absolute lymphocyte countOrd ered By: Yesika Faust on 01-12-2025 Lymphocytes Auto (Unsp spec) [#/Vol] 1.66 10*3/uL 0.83-4.51 [facility] Absolute neutrophil countOrd ered By: Yesika Faust on 01-12-2025 Neutrophils (Bld) [#/Vol] 3.2 10*3/uL 2.0-7.7 [facility] Anion gap in Serum or Plasma Ordered By: Yesika Faust on 01-12-2025 Anion gap [Moles/Vol] 13 mmol/L 5-15 [facility] Automated lymphocyte count a s percentage of total leukocytesOrdered By: Yesika Faust on 01-12-2025 Lymphocytes/100 WBC Auto (Unsp spec) 27.6 % 19-41 [facility] BUN/creatinine ratioOrdered By: Yesika Faust on 01-12-2025 Urea nitrogen/Creatinine [Mass ratio] 36.9 mg/mg High 10-20 [facility] Basophil percentageOrdered B y: Yesika Faust on 01-12-2025 Basophils/100 WBC (Bld) 0.8 % 0-1 [facility] Bilirubin directOrdered By: Yesika Faust on 01-12-2025 Bilirubin.direct [Mass/Vol] 0.11 mg/dL 0.00-0.30 [facility] Bilirubin, totalOrdered By: Yesika Faust on 01-12-2025 Bilirubin [Mass/Vol] 0.24 mg/dL 0.00-1.30 [facility] Carbon dioxide, total [Moles /volume] in Central venous bloodOrdered By: Yesika Faust on 01-12-2025 CO2 [Moles/Vol] 22.3 mmol/L 21.0-32.0 [facility] Chloride assayOrdered By: Tad Faust on 01-12-2025 Chloride [Moles/Vol] 106 mmol/L 98-108 [facility] Eosinophil percentageOrdered By: Yesika Faust on 01-12-2025 Eosinophils/100 WBC (Bld) 7.2 % High 0-5 [facility] Erythrocyte distribution wid th ratioOrdered By: Yesika Faust on 01-12-2025 Erythrocyte distribution width (RBC) [Ratio] 13.5 % 11.6-14.6 [facility] Erythrocyte distribution wid th standard deviationOrdered By: Yesika Faust on 01-12-2025 Erythrocyte distribution width (RBC) [Ratio] 47.9 fl High 35.1-43.9 [facility] Glomerular filtration rate ( GFR) estimation/1.73 sq m using serum, plasma, or whole bOrdered By: Yesika Faust on 01-12-2025 GFR/1.73 sq M.predicted among non-blacks MDRD (S/P/Bld) [Vol rate/Area] 84 mL/min/{1.73_m2} >60 [facility] Comment on above: mL/min/1.73m2 CKD-EP I Creatinine Equation (2020) Hematocrit Auto (Bld) [Volum e fraction]Ordered By: ky Faust on 01-12-2025 Hematocrit (Bld) [Volume fraction] 40.4 % 37-47 [facility] Hemoglobin measurementOrdere d By: Yesika Faust on 01-12-2025 Hemoglobin (Bld) [Mass/Vol] 13.3 g/dL 12.0-15.0 [facility] Immature granulocytes/100 WB C Auto (Bld)Ordered By: Yesika Faust on 01-12-2025 Immature granulocytes/100 WBC (Bld) 0.300 % 0.0-0.9 [facility] Comment on above: IG% - Immature Granu locytes (promyelocytes, myelocytes and metamyelocytes) > 1% indicates that a LEFT SHIFT is Present. Laboratory - Chemistry and C hemistry - challengeOrdered By: Yesika Faust on 01-12-2025 AST [Catalytic activity/Vol] 16 U/L <32 [facility] MCV (mean corpuscular volume ) determinationOrdered By: Yesika Faust on 01-12-2025 MCV (RBC) [Entitic vol] 97.1 fL 81-99 [facility] Mean corpuscular hemoglobin (MCH) determinationOrdered By: Yesika Faust on 01-12-2025 MCH (RBC) [Entitic mass] 32.0 pg 27.0-32.0 [facility] Mean corpuscular hemoglobin concentration (MCHC) determinationOrdered By: Yesika Faust on 01-12-2025 MCHC (RBC) [Mass/Vol] 32.9 g/dL 32-36 [facility] Mean platelet volume determi nationOrdered By: Yesika Faust on 01-12-2025 Platelet mean volume (Bld) [Entitic vol] 10.7 fL 6.2-12.0 [facility] Monocyte percentageOrdered B y: Yesika Faust on 01-12-2025 Monocytes/100 WBC (Bld) 10.8 % High 0-10 [facility] Neutrophil percentageOrdered By: Yesika Faust on 01-12-2025 Neutrophils/100 WBC (Bld) 53.3 % 47-70 [facility] Nucleated red blood cell per centageOrdered By: ky Faust on 01-12-2025 Nucleated RBC/100 WBC (Bld) [Ratio] 0 % 0-5 [facility] Platelet countOrdered By: Tad enriquetadenae Faust on 01-12-2025 Platelets (Bld) [#/Vol] 233 10*3/uL 150-450 [facility] Potassium measurement (mass/ volume)Ordered By: Yesika Faust on 01-12-2025 Potassium (Unsp spec) [Mass/Vol] 4.4 mmol/L 3.3-5.1 [facility] RBC Auto (Bld) [#/Vol]Ordere d By: Yesika Faust on 01-12-2025 RBC (Bld) [#/Vol] 4.16 10*6/uL Low 4.2-5.[address] [facility] Serum creatinine measurement (mass/volume)Ordered By: Yesika Faust on 01-12-2025 Creatinine [Mass/Vol] 0.71 mg/dL 0.70-1.20 [facility] Serum globulin measurementOr dered By: Yesika Faust on 01-12-2025 Globulin (S) [Mass/Vol] 2.2 g/dL 2.2-4.2 [facility] Serum glucose measurement (m ass/volume)Ordered By: Yesika Faust on 01-12-2025 Glucose [Mass/Vol] 95 mg/dL 70-99 [facility] Serum or plasma alanine vela otransferase (ALT) measurementOrdered By: Yesika Faust on 01-12-2025 ALT [Catalytic activity/Vol] 12 U/L <35 [facility] Serum or plasma albumin madi urement (mass/volume)Ordered By: Yesika Faust on 01-12-2025 Albumin [Mass/Vol] 3.5 g/dL 3.4-4.8 [facility] Serum or plasma alkaline mariaelena sphatase measurementOrdered By: Yesika Faust on 01-12-2025 ALP [Catalytic activity/Vol] 110 U/L High 35-104 [facility] Serum or plasma calcium madi urement (mass/volume)Ordered By: Yesika Faust on 01-12-2025 Calcium [Mass/Vol] 9.0 mg/dL 7.6-11.0 [facility] Serum or plasma urea nitroge n measurement (mass/volume)Ordered By: Yesika Faust on 01-12-2025 Urea nitrogen [Mass/Vol] 26 mg/dL High 4-19 [facility] Sodium levelOrdered By: Jed Faust on 01-12-2025 Sodium [Moles/Vol] 142 mmol/L 133-145 [facility] Total proteinOrdered By: Randall Faust on 01-12-2025 Protein [Mass/Vol] 5.7 g/dL Low 5.9-8.4 [facility] White blood cell (WBC) count Ordered By: Yesika Faust on 01-12-2025 WBC (Bld) [#/Vol] 6.0 10*3/uL 4.4-11.0 [facility] Absolute lymphocyte countOrd ered By: Jenamacarena Butterfieldkathieaida on 12-14-2024 Lymphocytes Auto (Unsp spec) [#/Vol] 2.70 10*3/uL 0.83-4.51 [facility] Absolute neutrophil countOrd ered By: Tadenriquetasaeidmacarena Butterfieldkathieaida on 12-14-2024 Neutrophils (Bld) [#/Vol] 4.2 10*3/uL 2.0-7.7 [facility] Anion gap in Serum or Plasma Ordered By: Yesika Butterfieldkathieaida on 12-14-2024 Anion gap [Moles/Vol] 12 mmol/L 5-15 [facility] Automated lymphocyte count a s percentage of total leukocytesOrdered By: Yesika Faust on 12-14-2024 Lymphocytes/100 WBC Auto (Unsp spec) 33.0 % 19-41 [facility] BUN/creatinine ratioOrdered By: enriquetabayboromacarena Faust on 12-14-2024 Urea nitrogen/Creatinine [Mass ratio] 30.0 mg/mg High 10-20 [facility] Basophil percentageOrdered B y: Jedsaeidmacarena Butterfieldkathieaida on 12-14-2024 Basophils/100 WBC (Bld) 1.0 % 0-1 [facility] Carbon dioxide, total [Moles /volume] in Central venous bloodOrdered By: Yesika Butterfieldkathieaida on 12-14-2024 CO2 [Moles/Vol] 25.1 mmol/L 21.0-32.0 [facility] Chloride assayOrdered By: Tad enriquetadenae Faust on 12-14-2024 Chloride [Moles/Vol] 103 mmol/L 98-108 [facility] Eosinophil percentageOrdered By: Tadky Butterfieldkathieaida on 12-14-2024 Eosinophils/100 WBC (Bld) 4.4 % 0-5 [facility] Erythrocyte distribution wid th (RBC) [Ratio]Ordered By: Yesika Butterfieldkathieaida on 12-14-2024 Erythrocyte distribution width (RBC) [Entitic vol] 45.8 fL High 35.1-43.9 [facility] Erythrocyte distribution wid th ratioOrdered By: [facility] Ritemacarena Faust on 12-14-2024 Erythrocyte distribution width (RBC) [Ratio] 13.2 % 11.6-14.6 [facility] Erythrocyte distribution wid th standard deviationOrdered By: Yesika Faust on 12-14-2024 Erythrocyte distribution width (RBC) [Ratio] 45.8 fl High 35.1-43.9 [facility] GFR/1.73 sq M.predicted giorgio g non-blacks MDRD (S/P/Bld) [Vol rate/Area]Ordered By: Yesika Faust on 12-14-2024 Estimated GFR (MDRD) Non-Af Amer 76 >60 [facility] Comment on above: mL/min/1.73m2 CKD-EP I Creatinine Equation (2020) Glomerular filtration rate ( GFR) estimation/1.73 sq m using serum, plasma, or whole bOrdered By: Yesika Faust on 12-14-2024 GFR/1.73 sq M.predicted among non-blacks MDRD (S/P/Bld) [Vol rate/Area] 76 mL/min/{1.73_m2} >60 [facility] Comment on above: mL/min/1.73m2 CKD-EP I Creatinine Equation (2020) Hematocrit Auto (Bld) [Volum e fraction]Ordered By: Yesika Faust on 12-14-2024 Hematocrit (Bld) [Volume fraction] 46.6 % 37-47 [facility] Hemoglobin measurementOrdere d By: Yesika Faust on 12-14-2024 Hemoglobin (Bld) [Mass/Vol] 15.2 g/dL High 12.0-15.0 [facility] Immature granulocytes/100 WB C Auto (Bld)Ordered By: Yesika Faust on 12-14-2024 Immature granulocytes/100 WBC (Bld) 0.500 % 0.0-0.9 [facility] Comment on above: IG% - Immature Granu locytes (promyelocytes, myelocytes and metamyelocytes) > 1% indicates that a LEFT SHIFT is Present. Lymphocytes Auto (Unsp spec) [#/Vol]Ordered By: Yesika Faust on 12-14-2024 Lymphocytes (Bld) [#/Vol] 2.70 10*3/uL 0.83-4.51 [facility] Lymphocytes/100 WBC Auto (Un sp spec)Ordered By: Yesika Faust on 12-14-2024 Lymphocytes/100 WBC (Bld) 33.0 % 19-41 [facility] MCV (mean corpuscular volume ) determinationOrdered By: Yesika Faust on 12-14-2024 MCV (RBC) [Entitic vol] 94.7 fL 81-99 [facility] Mean corpuscular hemoglobin (MCH) determinationOrdered By: Yesika Faust on 12-14-2024 MCH (RBC) [Entitic mass] 30.9 pg 27.0-32.0 [facility] Mean corpuscular hemoglobin concentration (MCHC) determinationOrdered By: Yesika Faust on 12-14-2024 MCHC (RBC) [Mass/Vol] 32.6 g/dL 32-36 [facility] Mean platelet volume determi nationOrdered By: Yesika Faust on 12-14-2024 Platelet mean volume (Bld) [Entitic vol] 10.6 fL 6.2-12.0 [facility] Monocyte percentageOrdered B y: Yesika Faust on 12-14-2024 Monocytes/100 WBC (Bld) 9.7 % 0-10 [facility] Neutrophil percentageOrdered By: Yesika Faust on 12-14-2024 Neutrophils/100 WBC (Bld) 51.4 % 47-70 [facility] Nucleated red blood cell per centageOrdered By: Yesika Faust on 12-14-2024 Nucleated RBC/100 WBC (Bld) [Ratio] 0 % 0-5 [facility] Platelet countOrdered By: Tad Faust on 12-14-2024 Platelets (Bld) [#/Vol] 268 10*3/uL 150-450 [facility] Potassium (Unsp spec) [Mass/ Vol]Ordered By: Yesika Faust on 12-14-2024 Potassium [Moles/Vol] 4.3 mmol/L 3.3-5.1 [facility] Potassium measurement (mass/ volume)Ordered By: Yesika Faust on 12-14-2024 Potassium (Unsp spec) [Mass/Vol] 4.3 mmol/L 3.3-5.1 [facility] RBC Auto (Bld) [#/Vol]Ordere d By: Yesika Faust on 12-14-2024 RBC (Bld) [#/Vol] 4.92 10*6/uL 4.2-5.[address] [facility] Serum creatinine measurement (mass/volume)Ordered By: Yesika Faust on 12-14-2024 Creatinine [Mass/Vol] 0.76 mg/dL 0.70-1.20 [facility] Serum glucose measurement (m ass/volume)Ordered By: Yesika Faust on 12-14-2024 Glucose [Mass/Vol] 105 mg/dL High 70-99 [facility] Serum or plasma calcium madi urement (mass/volume)Ordered By: Yesika Faust on 12-14-2024 Calcium [Mass/Vol] 9.7 mg/dL 7.6-11.0 [facility] Serum or plasma urea nitroge n measurement (mass/volume)Ordered By: Yesika Faust on 12-14-2024 Urea nitrogen [Mass/Vol] 23 mg/dL High 4-19 [facility] Sodium levelOrdered By: Jed jiangbert Christianne on 12-14-2024 Sodium [Moles/Vol] 141 mmol/L 133-145 [facility] White blood cell (WBC) count Ordered By: Yesika Faust on 12-14-2024 WBC (Bld) [#/Vol] 8.2 10*3/uL 4.4-11.0 [facility] Absolute lymphocyte countOrd ered By: Yesika Faust on 11-14-2024 Lymphocytes Auto (Unsp spec) [#/Vol] 2.15 10*3/uL 0.83-4.51 [facility] Absolute neutrophil countOrd ered By: Yesika Faust on 11-14-2024 Neutrophils (Bld) [#/Vol] 4.8 10*3/uL 2.0-7.7 [facility] Automated lymphocyte count a s percentage of total leukocytesOrdered By: Yesika Faust on 11-14-2024 Lymphocytes/100 WBC Auto (Unsp spec) 25.7 % 19-41 [facility] BUN/creatinine ratioOrdered By: Yesika Faust on 11-14-2024 Urea nitrogen/Creatinine [Mass ratio] 36.8 mg/mg High 10-20 [facility] Basophil percentageOrdered B y: Yesika Faust on 11-14-2024 Basophils/100 WBC (Bld) 1.0 % 0-1 [facility] Carbon dioxide measurementOr dered By: Yesika Fauts on 11-14-2024 CO2 [Moles/Vol] 27.6 mmol/L 22.0-29.0 [facility] Chloride measurementOrdered By: [facility] Ritemacarena Faust on 11-14-2024 Chloride [Moles/Vol] 101 mmol/L 96-108 [facility] Eosinophil percentageOrdered By: Yesika Faust on 11-14-2024 Eosinophils/100 WBC (Bld) 7.9 % High 0-5 [facility] Erythrocyte distribution wid th (RBC) [Ratio]Ordered By: Yesika Fuast on 11-14-2024 Erythrocyte distribution width (RBC) [Entitic vol] 46.1 fL High 35.1-43.9 [facility] Erythrocyte distribution wid th ratioOrdered By: Jedbayboromacarena Faust on 11-14-2024 Erythrocyte distribution width (RBC) [Ratio] 12.9 % 11.6-14.6 [facility] Erythrocyte distribution wid th standard deviationOrdered By: enriquetabayboromacarena Faust on 11-14-2024 Erythrocyte distribution width (RBC) [Ratio] 46.1 fl High 35.1-43.9 [facility] GFR/1.73 sq M.predicted giorgio g non-blacks MDRD (S/P/Bld) [Vol rate/Area]Ordered By: Yesika Faust on 11-14-2024 Estimated GFR (MDRD) Non-Af Amer 86 >60 [facility] Comment on above: mL/min/1.73m2 CKD-EP I Creatinine Equation (2020) Glomerular filtration rate ( GFR) estimation/1.73 sq m using serum, plasma, or whole bOrdered By: Yesika Faust on 11-14-2024 GFR/1.73 sq M.predicted among non-blacks MDRD (S/P/Bld) [Vol rate/Area] 86 mL/min/{1.73_m2} >60 [facility] Comment on above: mL/min/1.73m2 CKD-EP I Creatinine Equation (2020) Hematocrit Auto (Bld) [Volum e fraction]Ordered By: Yesika Fasut on 11-14-2024 Hematocrit (Bld) [Volume fraction] 46.9 % 37-47 [facility] Hemoglobin measurementOrdere d By: ky Faust on 11-14-2024 Hemoglobin (Bld) [Mass/Vol] 15.0 g/dL 12.0-15.0 [facility] Immature granulocytes/100 WB C Auto (Bld)Ordered By: ky Faust on 11-14-2024 Immature granulocytes/100 WBC (Bld) 0.500 % 0.0-0.9 [facility] Comment on above: IG% - Immature Granu locytes (promyelocytes, myelocytes and metamyelocytes) > 1% indicates that a LEFT SHIFT is Present. Lymphocytes Auto (Unsp spec) [#/Vol]Ordered By: enriquetabayboromacarena Faust on 11-14-2024 Lymphocytes (Bld) [#/Vol] 2.15 10*3/uL 0.83-4.51 [facility] Lymphocytes/100 WBC Auto (Un sp spec)Ordered By: Yesika Faust on 11-14-2024 Lymphocytes/100 WBC (Bld) 25.7 % 19-41 [facility] MCV (mean corpuscular volume ) determinationOrdered By: Yesika Faust on 11-14-2024 MCV (RBC) [Entitic vol] 96.9 fL 81-99 [facility] Mean corpuscular hemoglobin (MCH) determinationOrdered By: ky Faust on 11-14-2024 MCH (RBC) [Entitic mass] 31.0 pg 27.0-32.0 [facility] Mean corpuscular hemoglobin concentration (MCHC) determinationOrdered By: ky Faust on 11-14-2024 MCHC (RBC) [Mass/Vol] 32.0 g/dL 32-36 [facility] Mean platelet volume determi nationOrdered By: Yesika Faust on 11-14-2024 Platelet mean volume (Bld) [Entitic vol] 10.4 fL 6.2-12.0 [facility] Monocyte percentageOrdered B y: Yesika Faust on 11-14-2024 Monocytes/100 WBC (Bld) 7.9 % 0-10 [facility] Neutrophil percentageOrdered By: Yesika Faust on 11-14-2024 Neutrophils/100 WBC (Bld) 57.0 % 47-70 [facility] Nucleated red blood cell per centageOrdered By: Yesika Faust on 11-14-2024 Nucleated RBC/100 WBC (Bld) [Ratio] 0 % 0-5 [facility] Platelet countOrdered By: Tad Faust on 11-14-2024 Platelets (Bld) [#/Vol] 269 10*3/uL 150-450 [facility] RBC Auto (Bld) [#/Vol]Ordere d By: Yesika Faust on 11-14-2024 RBC (Bld) [#/Vol] 4.84 10*6/uL 4.2-5.[address] [facility] Serum creatinine measurement (mass/volume)Ordered By: Yesika Faust on 11-14-2024 Creatinine [Mass/Vol] 0.65 mg/dL Low 0.70-1.20 [facility] Serum glucose measurement (m ass/volume)Ordered By: Yesika Faust on 11-14-2024 Glucose [Mass/Vol] 97 mg/dL 70-99 [facility] Serum or plasma anion gap de termination (moles/volume)Ordered By: Yesika Faust on 11-14-2024 Anion gap [Moles/Vol] 12 mmol/L 5-15 [facility] Serum or plasma calcium madi urement (mass/volume)Ordered By: Yesika Faust on 11-14-2024 Calcium [Mass/Vol] 9.4 mg/dL 7.6-11.0 [facility] Serum or plasma potassium me asurementOrdered By: Yesika Faust on 11-14-2024 Potassium [Moles/Vol] 4.3 mmol/L 3.3-5.1 [facility] Comment on above: Hemolysis present, R esults could be affected. Serum or plasma sodium measu rement (moles/volume)Ordered By: Yesika Faust on 11-14-2024 Sodium [Moles/Vol] 141 mmol/L 133-145 [facility] Serum or plasma urea nitroge n measurement (mass/volume)Ordered By: Yesika Faust on 11-14-2024 Urea nitrogen [Mass/Vol] 24 mg/dL High 4-19 [facility] White blood cell (WBC) count Ordered By: Yesika Faust on 11-14-2024 WBC (Bld) [#/Vol] 8.4 10*3/uL 4.4-11.0 [facility] Absolute lymphocyte countOrd ered By: Yesika Faust on 10-17-2024 Lymphocytes Auto (Unsp spec) [#/Vol] 1.81 10*3/uL 0.83-4.51 [facility] Absolute neutrophil countOrd ered By: Yesika Faust on 10-17-2024 Neutrophils (Bld) [#/Vol] 3.3 10*3/uL 2.0-7.7 [facility] Automated lymphocyte count a s percentage of total leukocytesOrdered By: Yesika Faust on 10-17-2024 Lymphocytes/100 WBC Auto (Unsp spec) 26.5 % 19-41 [facility] Basophil percentageOrdered B y: Yesika Faust on 10-17-2024 Basophils/100 WBC (Bld) 0.7 % 0-1 [facility] Bilirubin directOrdered By: Yesika Faust on 10-17-2024 Bilirubin.direct [Mass/Vol] 0.09 mg/dL 0.00-0.30 [facility] Bilirubin, totalOrdered By: Yesika Faust on 10-17-2024 Bilirubin [Mass/Vol] 0.20 mg/dL 0.20-1.00 [facility] Comment on above: For patients on eltr ombopag therapy, use of Dimension [place] TBIL is not recommended. Blood urea nitrogen (BUN)/cr eatinine ratioOrdered By: Yesika Faust on 10-17-2024 Urea nitrogen/Creatinine [Mass ratio] 49.3 mg/mg High 10-20 [facility] Carbon dioxide measurementOr dered By: Yesika Faust on 10-17-2024 CO2 [Moles/Vol] 29.0 mmol/L 21.0-32.0 [facility] Chloride measurementOrdered By: Yesika Faust on 10-17-2024 Chloride [Moles/Vol] 106 mmol/L 98-107 [facility] Eosinophil percentageOrdered By: Yesika Faust on 10-17-2024 Eosinophils/100 WBC (Bld) 14.6 % High 0-5 [facility] Erythrocyte distribution wid th (RBC) [Ratio]Ordered By: Yesika Faust on 10-17-2024 Erythrocyte distribution width (RBC) [Entitic vol] 46.3 fL High 35.1-43.9 [facility] Erythrocyte distribution wid th ratioOrdered By: ky Faust on 10-17-2024 Erythrocyte distribution width (RBC) [Ratio] 13.0 % 11.6-14.6 [facility] Erythrocyte distribution wid th standard deviationOrdered By: Jedbayboromacarena Faust on 10-17-2024 Erythrocyte distribution width (RBC) [Ratio] 46.3 fl High 35.1-43.9 [facility] Estimated glomerular filtrat ion rate (GFR) AmericanOrdered By: Yesika Faust on 10-17-2024 Estimated GFR (MDRD) Amer 120 mL/min >60 [facility] Comment on above: GFR Calc Glomerular filtration rate ( GFR) estimationOrdered By: Yesika Faust on 10-17-2024 Estimated GFR (MDRD) Non-Af Amer 99 mL/min >60 [facility] Comment on above: Non- GFR Calc GFR/1.73 sq M.predicted among non-blacks MDRD (S/P/Bld) [Vol rate/Area] 99 mL/min/{1.73_m2} >60 [facility] Comment on above: Non- GFR Calc Glucose measurementOrdered B y: Yesika Scoutandreea on 10-17-2024 Glucose [Mass/Vol] 86 mg/dL 74-106 [facility] Hematocrit Auto (Bld) [Volum e fraction]Ordered By: Yesika Faust on 10-17-2024 Hematocrit (Bld) [Volume fraction] 41.4 % 37-47 [facility] Hemoglobin measurementOrdere d By: Yesika Faust on 10-17-2024 Hemoglobin (Bld) [Mass/Vol] 13.5 g/dL 12.0-15.0 [facility] Immature granulocytes/100 WB C Auto (Bld)Ordered By: Yesika Faust on 10-17-2024 Immature granulocytes/100 WBC (Bld) 0.400 % 0.0-0.9 [facility] Comment on above: IG% - Immature Granu locytes (promyelocytes, myelocytes and metamyelocytes) > 1% indicates that a LEFT SHIFT is Present. Laboratory - Chemistry and C hemistry - challengeOrdered By: Yesika Faust on 10-17-2024 AST [Catalytic activity/Vol] 12 U/L Low 15-37 [facility] Lymphocytes Auto (Unsp spec) [#/Vol]Ordered By: Yesika Faust on 10-17-2024 Lymphocytes (Bld) [#/Vol] 1.81 10*3/uL 0.83-4.51 [facility] Lymphocytes/100 WBC Auto (Un sp spec)Ordered By: Yesika Faust on 10-17-2024 Lymphocytes/100 WBC (Bld) 26.5 % 19-41 [facility] MCV (mean corpuscular volume ) determinationOrdered By: Yesika Faust on 10-17-2024 MCV (RBC) [Entitic vol] 98.6 fL 81-99 [facility] Mean corpuscular hemoglobin (MCH) determinationOrdered By: Yesika Faust on 10-17-2024 MCH (RBC) [Entitic mass] 32.1 pg High 27.0-32.0 [facility] Mean corpuscular hemoglobin concentration (MCHC) determinationOrdered By: Yesika Faust on 10-17-2024 MCHC (RBC) [Mass/Vol] 32.6 g/dL 32-36 [facility] Mean platelet volume determi nationOrdered By: Yesika Faust on 10-17-2024 Platelet mean volume (Bld) [Entitic vol] 10.6 fL 6.2-12.0 [facility] Monocyte percentageOrdered B y: Yesika Faust on 10-17-2024 Monocytes/100 WBC (Bld) 9.5 % 0-10 [facility] Neutrophil percentageOrdered By: Yesika Faust on 10-17-2024 Neutrophils/100 WBC (Bld) 48.3 % 47-70 [facility] Nucleated red blood cell per centageOrdered By: Yesika Faust on 10-17-2024 Nucleated RBC/100 WBC (Bld) [Ratio] 0 % 0-5 [facility] Platelet countOrdered By: Tad Faust on 10-17-2024 Platelets (Bld) [#/Vol] 232 10*3/uL 150-450 [facility] Potassium measurementOrdered By: Yesika Faust on 10-17-2024 Potassium [Moles/Vol] 4.0 mmol/L 3.5-5.1 [facility] RBC Auto (Bld) [#/Vol]Ordere d By: Yesika Faust on 10-17-2024 RBC (Bld) [#/Vol] 4.20 10*6/uL 4.2-5.[address] [facility] Serum anion gap measurementO rdered By: Yesika Faust on 10-17-2024 Anion gap [Moles/Vol] 5 mmol/L 5-15 [facility] Serum globulin measurementOr dered By: Yesika Faust on 10-17-2024 Globulin (S) [Mass/Vol] 3.2 g/dL 2.2-4.2 [facility] Serum or plasma alanine vela otransferase (ALT) measurementOrdered By: Yesika Faust on 10-17-2024 ALT [Catalytic activity/Vol] 19 U/L 13-56 [facility] Serum or plasma albumin madi urement (mass/volume)Ordered By: Yesika Faust on 10-17-2024 Albumin [Mass/Vol] 3.1 g/dL Low 3.2-5.0 [facility] Serum or plasma alkaline mariaelena sphatase measurementOrdered By: Tadky Butterfieldkathieaida on 10-17-2024 ALP [Catalytic activity/Vol] 108 U/L 45-117 [facility] Serum or plasma calcium madi urement (mass/volume)Ordered By: Yesika Faust on 10-17-2024 Calcium [Mass/Vol] 9.1 mg/dL 8.5-10.1 [facility] Serum or plasma creatinine m easurement (mass/volume)Ordered By: Yesika Faust on 10-17-2024 Creatinine [Mass/Vol] 0.61 mg/dL 0.55-1.02 [facility] Comment on above: The validity of the calculated GFR & GFRAA in patients over 70 years has not been determined. Clinical correlation is essential. Serum or plasma urea nitroge n measurement (mass/volume)Ordered By: Yesika Faust on 10-17-2024 Urea nitrogen [Mass/Vol] 30 mg/dL High 7-18 [facility] Sodium levelOrdered By: Jed denae Christianne on 10-17-2024 Sodium [Moles/Vol] 140 mmol/L 136-145 [facility] Total proteinOrdered By: Randall montsemacarena Faust on 10-17-2024 Protein [Mass/Vol] 6.3 g/dL Low 6.4-8.2 [facility] White blood cell (WBC) count Ordered By: Yesika Faust on 10-17-2024 WBC (Bld) [#/Vol] 6.8 10*3/uL 4.4-11.0 [facility] Bilirubin Test strip Ql (U)O rdered By: Yesika Faust on 10-14-2024 Bilirubin Ql (U) Negative Negative [facility] Epithelial cells.squamous LM Ql (Urine sed)Ordered By: Yesika Faust on 10-14-2024 Epithelial cells.squamous LM.HPF (Urine sed) [#/Area] 0 /[HPF] 5-10 [facility] Glucose Ql (U)Ordered By: Tad Faust on 10-14-2024 Urine Glucose (UA) Normal mg/dl Normal [facility] Ketones Test strip Ql (U)Ord ered By: Yesika Faust on 10-14-2024 Ketones Ql (U) Negative Negative [facility] Microscopic analysis of urin e for red blood cells (RBC)Ordered By: Yesika Faust on 10-14-2024 Microscopic analysis of urine for red blood cells (RBC) 0 SEEN /hpf 0-5 [facility] Urine RBC 0 SEEN /hpf 0-5 [facility] Mucus LM Ql (Urine sed)Order ed By: Yesika Faust on 10-14-2024 Mucus Ql (Urine sed) 0 SEEN /hpf [facility] Nitrite Test strip Ql (U)Ord ered By: Yesika Faust on 10-14-2024 Nitrite Ql (U) Positive High Negative [facility] Protein Test strip Ql (U)Ord ered By: Yesika Faust on 10-14-2024 Protein Ql (U) 15 mg/dl High Negative [facility] Squamous epithelial cells de tection in urine sediment by light microscopyOrdered By: Yesika Faust on 10-14-2024 Epithelial cells.squamous LM Ql (Urine sed) 0 SEEN /hpf 5-10 [facility] Triple phosphate crystals LM Ql (Urine sed)Ordered By: Yesika Faust on 10-14-2024 Urine Triple Phosphate Crystals 1+ /hpf [facility] Triple phosphate crystals de tection in urine sediment by light microscopyOrdered By: Yesika Faust on 10-14-2024 Triple phosphate crystals LM Ql (Urine sed) 1+ /hpf [facility] Urine blood detectionOrdered By: Yesika Faust on 10-14-2024 Urine Occult Blood Negative Negative [facility] Urine clarityOrdered By: Randall Faust on 10-14-2024 Clarity (U) Sl. Cloudy Clear [facility] Urine color determinationOrd ered By: Yesika Faust on 10-14-2024 Color (U) Yellow Yellow [facility] Urine cultureOrdered By: Randall Faust on 10-14-2024 Bacteria identified Cx Nom (U) Proteus mirabilis Abnormal [facility] Urine glucose detectionOrder ed By: Yesika Faust on 10-14-2024 Glucose Ql (U) Normal mg/dl Normal [facility] Urine leukocyte esterase det ection by dipstickOrdered By: Yesika Faust on 10-14-2024 Leukocyte esterase Test strip Ql (U) 25 /ul High Negative [facility] Urine pHOrdered By: Fernando Faust on 10-14-2024 pH (U) 9.0 [pH] 5.0 - 8.0 [facility] Urine sediment bacteria coun t by microscopy (number/high power field)Ordered By: Yesika Faust on 10-14-2024 Bacteria LM.HPF (Urine sed) [#/Area] 1 /[HPF] None Seen [facility] Urine specific gravity measu rementOrdered By: Yesika Faust on 10-14-2024 Specific gravity (U) [Rel density] 1.015 1.002-1.03 0 [facility] Urine urobilinogen measureme ntOrdered By: Yesika Faust on 10-14-2024 Urobilinogen Ql (U) Normal mg/dl Normal [facility] Urobilinogen Ql (U)Ordered B y: Yesika Faust on 10-14-2024 Urine Urobilinogen Normal mg/dl Normal [facility] White blood cell countOrdere d By: Yesika Faust on 10-14-2024 Urine WBC 0 SEEN /hpf 0-5 [facility] White blood cell count 0 SEEN /hpf 0-5 [facility] Absolute neutrophil countOrd ered By: Yesika Faust on 09-16-2024 Neutrophils (Bld) [#/Vol] 4.4 10*3/uL 2.0-7.7 [facility] Basophil percentageOrdered B y: Yesika Faust on 09-16-2024 Basophils/100 WBC (Bld) 0.7 % 0-1 [facility] Blood urea nitrogen (BUN)/cr eatinine ratioOrdered By: Yesika Faust on 09-16-2024 Urea nitrogen/Creatinine [Mass ratio] 40.5 mg/mg High 10-20 [facility] Carbon dioxide measurementOr dered By: Yesika Faust on 09-16-2024 CO2 [Moles/Vol] 28.0 mmol/L 21.0-32.0 [facility] Chloride measurementOrdered By: Yesika Faust on 09-16-2024 Chloride [Moles/Vol] 106 mmol/L 98-107 [facility] Eosinophil percentageOrdered By: Yesika Faust on 09-16-2024 Eosinophils/100 WBC (Bld) 3.0 % 0-5 [facility] Erythrocyte distribution wid th (RBC) [Ratio]Ordered By: Yesika Faust on 09-16-2024 Erythrocyte distribution width (RBC) [Entitic vol] 48.3 fL High 35.1-43.9 [facility] Erythrocyte distribution wid th ratioOrdered By: Yesika Faust on 09-16-2024 Erythrocyte distribution width (RBC) [Ratio] 13.2 % 11.6-14.6 [facility] Estimated glomerular filtrat ion rate (GFR) AmericanOrdered By: Yesika Faust on 09-16-2024 Estimated GFR (MDRD) Amer 162 mL/min >60 [facility] Comment on above: GFR Calc Glomerular filtration rate ( GFR) estimationOrdered By: Yesika Faust on 09-16-2024 Estimated GFR (MDRD) Non-Af Amer 134 mL/min >60 [facility] Comment on above: Non- GFR Calc Glucose measurementOrdered B y: Yesika Faust on 09-16-2024 Glucose [Mass/Vol] 89 mg/dL 74-106 [facility] Hematocrit Auto (Bld) [Volum e fraction]Ordered By: Yesika Faust on 09-16-2024 Hematocrit (Bld) [Volume fraction] 38.9 % 37-47 [facility] Hemoglobin measurementOrdere d By: Yesika Faust on 09-16-2024 Hemoglobin (Bld) [Mass/Vol] 12.4 g/dL 12.0-15.0 [facility] Immature granulocytes/100 WB C Auto (Bld)Ordered By: Yesika Faust on 09-16-2024 Immature granulocytes/100 WBC (Bld) 0.300 % 0.0-0.9 [facility] Comment on above: IG% - Immature Granu locytes (promyelocytes, myelocytes and metamyelocytes) > 1% indicates that a LEFT SHIFT is Present. Lymphocytes Auto (Unsp spec) [#/Vol]Ordered By: Yesika Faust on 09-16-2024 Lymphocytes (Bld) [#/Vol] 1.59 10*3/uL 0.83-4.51 [facility] Lymphocytes/100 WBC Auto (Un sp spec)Ordered By: Yesika Faust on 09-16-2024 Lymphocytes/100 WBC (Bld) 23.1 % 19-41 [facility] MCV (mean corpuscular volume ) determinationOrdered By: Yesika Faust on 09-16-2024 MCV (RBC) [Entitic vol] 98.7 fL 81-99 [facility] Mean corpuscular hemoglobin (MCH) determinationOrdered By: enriquetabayboromacarena Faust on 09-16-2024 MCH (RBC) [Entitic mass] 31.5 pg 27.0-32.0 [facility] Mean corpuscular hemoglobin concentration (MCHC) determinationOrdered By: enriquetabayboromacarena Faust on 09-16-2024 MCHC (RBC) [Mass/Vol] 31.9 g/dL Low 32-36 [facility] Mean platelet volume determi nationOrdered By: ky Faust on 09-16-2024 Platelet mean volume (Bld) [Entitic vol] 10.6 fL 6.2-12.0 [facility] Monocyte percentageOrdered B y: Yesika Faust on 09-16-2024 Monocytes/100 WBC (Bld) 9.6 % 0-10 [facility] Neutrophil percentageOrdered By: enriquetabayboromacarena Faust on 09-16-2024 Neutrophils/100 WBC (Bld) 63.3 % 47-70 [facility] Nucleated red blood cell per centageOrdered By: Yesika Faust on 09-16-2024 Nucleated RBC/100 WBC (Bld) [Ratio] 0 % 0-5 [facility] Platelet countOrdered By: Tad Faust on 09-16-2024 Platelets (Bld) [#/Vol] 241 10*3/uL 150-450 [facility] Potassium measurementOrdered By: Yesika Faust on 09-16-2024 Potassium [Moles/Vol] 3.8 mmol/L 3.5-5.1 [facility] RBC Auto (Bld) [#/Vol]Ordere d By: Yesika Faust on 09-16-2024 RBC (Bld) [#/Vol] 3.94 10*6/uL Low 4.2-5.[address] [facility] Serum anion gap measurementO rdered By: Yesika Faust on 09-16-2024 Anion gap [Moles/Vol] 5 mmol/L 5-15 [facility] Serum or plasma calcium madi urement (mass/volume)Ordered By: Yesika Faust on 09-16-2024 Calcium [Mass/Vol] 8.8 mg/dL 8.5-10.1 [facility] Serum or plasma creatinine m easurement (mass/volume)Ordered By: Yesika Faust on 09-16-2024 Creatinine [Mass/Vol] 0.47 mg/dL Low 0.55-1.02 [facility] Comment on above: The validity of the calculated GFR & GFRAA in patients over 70 years has not been determined. Clinical correlation is essential. Serum or plasma urea nitroge n measurement (mass/volume)Ordered By: Yesika Faust on 09-16-2024 Urea nitrogen [Mass/Vol] 19 mg/dL High 7-18 [facility] Sodium levelOrdered By: Jed Faust on 09-16-2024 Sodium [Moles/Vol] 139 mmol/L 136-145 [facility] White blood cell (WBC) count Ordered By: Yesika Faust on 09-16-2024 WBC (Bld) [#/Vol] 6.9 10*3/uL 4.4-11.0 [facility] Absolute neutrophil countOrd ered By: Yesika Faust on 08-16-2024 Neutrophils (Bld) [#/Vol] 3.4 10*3/uL 2.0-7.7 [facility] Basophil percentageOrdered B y: Yesika Faust on 08-16-2024 Basophils/100 WBC (Bld) 0.7 % 0-1 [facility] Blood urea nitrogen (BUN)/cr eatinine ratioOrdered By: Yesika Faust on 08-16-2024 Urea nitrogen/Creatinine [Mass ratio] 35.8 mg/mg High 10-20 [facility] Carbon dioxide measurementOr dered By: Yesika Faust on 08-16-2024 CO2 [Moles/Vol] 28.0 mmol/L 21.0-32.0 [facility] Chloride measurementOrdered By: enriquetabayboromacarena Faust on 08-16-2024 Chloride [Moles/Vol] 110 mmol/L High 98-107 [facility] Eosinophil percentageOrdered By: ky Faust on 08-16-2024 Eosinophils/100 WBC (Bld) 3.1 % 0-5 [facility] Erythrocyte distribution wid th (RBC) [Ratio]Ordered By: Yesika Faust on 08-16-2024 Erythrocyte distribution width (RBC) [Entitic vol] 50.8 fL High 35.1-43.9 [facility] Erythrocyte distribution wid th ratioOrdered By: Yesika Faust on 08-16-2024 Erythrocyte distribution width (RBC) [Ratio] 14.0 % 11.6-14.6 [facility] Estimated glomerular filtrat ion rate (GFR) AmericanOrdered By: Yesika Faust on 08-16-2024 Estimated GFR (MDRD) Amer 141 mL/min >60 [facility] Comment on above: GFR Calc Glomerular filtration rate ( GFR) estimationOrdered By: Yesika Faust on 08-16-2024 Estimated GFR (MDRD) Non-Af Amer 116 mL/min >60 [facility] Comment on above: Non- GFR Calc Glucose measurementOrdered B y: Yesika Faust on 08-16-2024 Glucose [Mass/Vol] 85 mg/dL 74-106 [facility] Hematocrit Auto (Bld) [Volum e fraction]Ordered By: Yesika Faust on 08-16-2024 Hematocrit (Bld) [Volume fraction] 41.2 % 37-47 [facility] Hemoglobin measurementOrdere d By: Yesika Faust on 08-16-2024 Hemoglobin (Bld) [Mass/Vol] 12.9 g/dL 12.0-15.0 [facility] Immature granulocytes/100 WB C Auto (Bld)Ordered By: ky Faust on 08-16-2024 Immature granulocytes/100 WBC (Bld) 0.300 % 0.0-0.9 [facility] Comment on above: IG% - Immature Granu locytes (promyelocytes, myelocytes and metamyelocytes) > 1% indicates that a LEFT SHIFT is Present. Lymphocytes Auto (Unsp spec) [#/Vol]Ordered By: Yesika Faust on 08-16-2024 Lymphocytes (Bld) [#/Vol] 1.61 10*3/uL 0.83-4.51 [facility] Lymphocytes/100 WBC Auto (Un sp spec)Ordered By: Yesika Faust on 08-16-2024 Lymphocytes/100 WBC (Bld) 27.4 % 19-41 [facility] MCV (mean corpuscular volume ) determinationOrdered By: Yesika Faust on 08-16-2024 MCV (RBC) [Entitic vol] 99.0 fL 81-99 [facility] Mean corpuscular hemoglobin (MCH) determinationOrdered By: Yesika Faust on 08-16-2024 MCH (RBC) [Entitic mass] 31.0 pg 27.0-32.0 [facility] Mean corpuscular hemoglobin concentration (MCHC) determinationOrdered By: Yesika Faust on 08-16-2024 MCHC (RBC) [Mass/Vol] 31.3 g/dL Low 32-36 [facility] Mean platelet volume determi nationOrdered By: Yesika Faust on 08-16-2024 Platelet mean volume (Bld) [Entitic vol] 10.8 fL 6.2-12.0 [facility] Monocyte percentageOrdered B y: Yesika Faust on 08-16-2024 Monocytes/100 WBC (Bld) 10.5 % High 0-10 [facility] Neutrophil percentageOrdered By: Jedsaeidmacarena Butterfieldkathieaida on 08-16-2024 Neutrophils/100 WBC (Bld) 58.0 % 47-70 [facility] Nucleated red blood cell per centageOrdered By: Jedsaeidmacarena Butterfieldkathieaida on 08-16-2024 Nucleated RBC/100 WBC (Bld) [Ratio] 0 % 0-5 [facility] Platelet countOrdered By: Tad shymacarena Butterfieldkathieaida on 08-16-2024 Platelets (Bld) [#/Vol] 242 10*3/uL 150-450 [facility] Potassium measurementOrdered By: Yesika Faust on 08-16-2024 Potassium [Moles/Vol] 3.9 mmol/L 3.5-5.1 [facility] RBC Auto (Bld) [#/Vol]Ordere d By: Jedsaeidmacarena Butterfieldkathieaida on 08-16-2024 RBC (Bld) [#/Vol] 4.16 10*6/uL Low 4.2-5.[address] [facility] Serum anion gap measurementO rdered By: Yesika Faust on 08-16-2024 Anion gap [Moles/Vol] 4 mmol/L Low 5-15 [facility] Serum or plasma calcium madi urement (mass/volume)Ordered By: Yesika Faust on 08-16-2024 Calcium [Mass/Vol] 8.9 mg/dL 8.5-10.1 [facility] Serum or plasma creatinine m easurement (mass/volume)Ordered By: Yesika Faust on 08-16-2024 Creatinine [Mass/Vol] 0.53 mg/dL Low 0.55-1.02 [facility] Comment on above: The validity of the calculated GFR & GFRAA in patients over 70 years has not been determined. Clinical correlation is essential. Serum or plasma urea nitroge n measurement (mass/volume)Ordered By: Yesika Faust on 08-16-2024 Urea nitrogen [Mass/Vol] 19 mg/dL High 7-18 [facility] Sodium levelOrdered By: Jed Faust on 08-16-2024 Sodium [Moles/Vol] 142 mmol/L 136-145 [facility] White blood cell (WBC) count Ordered By: Yesika Faust on 08-16-2024 WBC (Bld) [#/Vol] 5.9 10*3/uL 4.4-11.0 [facility] Absolute lymphocyte countOrd ered By: [facility] Ritemacarena Butterfieldaida on 11-17-2023 Lymphocytes Auto (Unsp spec) [#/Vol] 1.64 10*3/uL 0.83-4.51 [facility] Automated lymphocyte count a s percentage of total leukocytesOrdered By: Yesika Faust on 11-17-2023 Lymphocytes/100 WBC Auto (Unsp spec) 26.6 % 19-41 [facility] Basophil percentageOrdered B y: Yesika Faust on 11-17-2023 Basophils/100 WBC (Bld) 0.6 % 0-1 [facility] Chloride [Moles/Vol] 109 mmol/L 98-107 [facility] Eosinophils/100 WBC (Bld) 1.8 % 0-5 [facility] Glucose [Mass/Vol] 91 mg/dL 74-106 [facility] Hemoglobin (Bld) [Mass/Vol] 12.9 g/dL 12.0-15.0 [facility] Monocytes/100 WBC (Bld) 9.4 % 0-10 [facility] Neutrophils (Bld) [#/Vol] 3.8 10*3/uL 2.0-7.7 [facility] Neutrophils/100 WBC (Bld) 61.1 % 47-70 [facility] Potassium [Moles/Vol] 3.8 mmol/L 3.5-5.1 [facility] Sodium [Moles/Vol] 140 mmol/L 136-145 [facility] WBC (Bld) [#/Vol] 6.2 10*3/uL 4.4-11.0 [facility] Determination of erythrocyte mean corpuscular volume (MCV)Ordered By: Yesika Faust on 11-17-2023 MCV (RBC) [Entitic vol] 91.8 fL 81-99 [facility] Erythrocyte distribution wid th ratioOrdered By: [facility] Ritemacarena Faust on 11-17-2023 Erythrocyte distribution width (RBC) [Ratio] 14.3 % 11.6-14.6 [facility] Erythrocyte distribution wid th standard deviationOrdered By: [facility] Ritemacarena Faust on 11-17-2023 Erythrocyte distribution width (RBC) [Entitic vol] 48.0 fL 35.1-43.9 [facility] Hematocrit Auto (Bld) [Volum e fraction]Ordered By: [facility] Ritemacarena Faust on 11-17-2023 Hematocrit (Bld) [Volume fraction] 39.3 % 37-47 [facility] Immature granulocytes/100 WB C Auto (Bld)Ordered By: [facility] Christianne on 11-17-2023 Immature granulocytes/100 WBC (Bld) 0.500 % 0.0-0.9 [facility] Comment on above: IG% - Immature Granu locytes (promyelocytes, myelocytes and metamyelocytes) > 1% indicates that a LEFT SHIFT is Present. Laboratory - Chemistry and C hemistry - challengeOrdered By: Yesika Faust on 11-17-2023 CO2 [Moles/Vol] 28.0 mmol/L 21.0-32.0 [facility] Urea nitrogen/Creatinine [Mass ratio] 18.6 mg/mg 10-20 [facility] Laboratory - Hematology and Cell countsOrdered By: Yesika Faust on 11-17-2023 MCH (RBC) [Entitic mass] 30.1 pg 27.0-32.0 [facility] MCHC (RBC) [Mass/Vol] 32.8 g/dL 32-36 [facility] Nucleated RBC/100 WBC (Bld) [Ratio] 0 % 0-5 [facility] Platelet mean volume (Bld) [Entitic vol] 9.9 fL 6.2-12.0 [facility] Platelets (Bld) [#/Vol] 230 10*3/uL 150-450 [facility] No Panel InformationOrdered By: Yesika Faust on 11-17-2023 Estimated GFR (MDRD) Amer 94 mL/min >60 [facility] Comment on above: GFR Calc Estimated GFR (MDRD) Non-Af Amer 78 mL/min >60 [facility] Comment on above: Non- GFR Calc RBC Auto (Bld) [#/Vol]Ordere d By: Yesika Faust on 11-17-2023 RBC (Bld) [#/Vol] 4.28 10*6/uL 4.2-5.[address] [facility] Serum or plasma calcium madi urement (mass/volume)Ordered By: Yesika Faust on 11-17-2023 Calcium [Mass/Vol] 9.2 mg/dL 8.5-10.1 [facility] Serum or plasma creatinine m easurement (mass/volume)Ordered By: Yesika Faust on 11-17-2023 Creatinine [Mass/Vol] 0.75 mg/dL 0.55-1.02 [facility] Comment on above: The validity of the calculated GFR & GFRAA in patients over 70 years has not been determined. Clinical correlation is essential. Serum or plasma urea nitroge n measurement (mass/volume)Ordered By: Yesika Faust on 11-17-2023 Urea nitrogen [Mass/Vol] 14 mg/dL 7-18 [facility] Thin prep Papanicolaou smear with manual screeningOrdered By: Yesika Faust on 11-17-2023 Thin prep Papanicolaou smear with manual screening 3 5-15 [facility] Absolute lymphocyte countOrd ered By: Yesika Faust on 08-18-2023 Lymphocytes Auto (Unsp spec) [#/Vol] 1.67 10*3/uL 0.83-4.51 [facility] Basophil percentageOrdered B y: Yesika Faust on 08-18-2023 Basophils/100 WBC (Bld) 0.7 % 0-1 [facility] Chloride [Moles/Vol] 109 mmol/L 98-107 [facility] Eosinophils/100 WBC (Bld) 2.8 % 0-5 [facility] Glucose [Mass/Vol] 89 mg/dL 74-106 [facility] Neutrophils (Bld) [#/Vol] 3.1 10*3/uL 2.0-7.7 [facility] Neutrophils/100 WBC (Bld) 56.1 % 47-70 [facility] Potassium [Moles/Vol] 4.0 mmol/L 3.5-5.1 [facility] Sodium [Moles/Vol] 141 mmol/L 136-145 [facility] WBC (Bld) [#/Vol] 5.4 10*3/uL 4.4-11.0 [facility] Blood erythrocytes count (nu mber/volume)Ordered By: Yesika Faust on 08-18-2023 RBC (Bld) [#/Vol] 4.55 10*6/uL 4.2-5.[address] [facility] Blood hemoglobin measurement (mass/volume)Ordered By: Yesika Faust on 08-18-2023 Hemoglobin (Bld) [Mass/Vol] 12.9 g/dL 12.0-15.0 [facility] Blood lymphocytes/100 leukoc ytesOrdered By: Yesika Faust on 08-18-2023 Lymphocytes/100 WBC (Bld) 30.8 % 19-41 [facility] Blood monocytes/100 leukocyt esOrdered By: Yesika Faust on 08-18-2023 Monocytes/100 WBC (Bld) 9.4 % 0-10 [facility] Blood platelet mean volumeOr dered By: Yesika Faust on 08-18-2023 Platelet mean volume (Bld) [Entitic vol] 10.4 fL 6.2-12.0 [facility] Determination of erythrocyte mean corpuscular volume (MCV)Ordered By: Yesika Faust on 08-18-2023 MCV (RBC) [Entitic vol] 89.5 fL 81-99 [facility] Hematocrit Auto (Bld) [Volum e fraction]Ordered By: Yesika Faust on 08-18-2023 Hematocrit (Bld) [Volume fraction] 40.7 % 37-47 [facility] Laboratory - Chemistry and C hemistry - challengeOrdered By: Yesika Faust on 08-18-2023 CO2 [Moles/Vol] 29.0 mmol/L 21.0-32.0 [facility] Urea nitrogen/Creatinine [Mass ratio] 16.6 mg/mg 10-20 [facility] Laboratory - Hematology and Cell countsOrdered By: Yesika Faust on 08-18-2023 Erythrocyte distribution width (RBC) [Entitic vol] 45.5 fL 35.1-43.9 [facility] Erythrocyte distribution width (RBC) [Ratio] 13.9 % 11.6-14.6 [facility] Immature granulocytes/100 WBC (Bld) 0.200 % 0.0-0.9 [facility] Comment on above: IG% - Immature Granu locytes (promyelocytes, myelocytes and metamyelocytes) > 1% indicates that a LEFT SHIFT is Present. MCH (RBC) [Entitic mass] 28.4 pg 27.0-32.0 [facility] Nucleated RBC/100 WBC (Bld) [Ratio] 0 % 0-5 [facility] MCHC Auto (RBC) [Mass/Vol]Or dered By: Yesika Faust on 08-18-2023 MCHC (RBC) [Mass/Vol] 31.7 g/dL 32-36 [facility] No Panel InformationOrdered By: Yesika Faust on 08-18-2023 Estimated GFR (MDRD) Amer 109 mL/min >60 [facility] Comment on above: GFR Calc Estimated GFR (MDRD) Non-Af Amer 90 mL/min >60 [facility] Comment on above: Non- GFR Calc Platelets bldOrdered By: Randall Faust on 08-18-2023 Platelets (Bld) [#/Vol] 221 10*3/uL 150-450 [facility] Serum or plasma calcium madi urement (mass/volume)Ordered By: Yesika Faust on 08-18-2023 Calcium [Mass/Vol] 8.8 mg/dL 8.5-10.1 [facility] Serum or plasma creatinine m easurement (mass/volume)Ordered By: Yesika Faust on 08-18-2023 Creatinine [Mass/Vol] 0.66 mg/dL 0.55-1.02 [facility] Comment on above: The validity of the calculated GFR & GFRAA in patients over 70 years has not been determined. Clinical correlation is essential. Serum or plasma urea nitroge n measurement (mass/volume)Ordered By: Yesika Faust on 08-18-2023 Urea nitrogen [Mass/Vol] 11 mg/dL 7-18 [facility] Thin prep Papanicolaou smear with manual screeningOrdered By: Yesika Faust on 08-18-2023 Thin prep Papanicolaou smear with manual screening 3 5-15 [facility] Absolute lymphocyte countOrd ered By: ky Faust on 05-19-2023 Lymphocytes Auto (Unsp spec) [#/Vol] 1.86 10*3/uL 0.83-4.51 [facility] Basophil percentageOrdered B y: Yesika Faust on 05-19-2023 Basophils/100 WBC (Bld) 0.8 % 0-1 [facility] Chloride [Moles/Vol] 107 mmol/L 98-107 [facility] Eosinophils/100 WBC (Bld) 1.5 % 0-5 [facility] Glucose [Mass/Vol] 125 mg/dL 74-106 [facility] Comment on above: Fasting Glucose resu lt from 100 to 125 mg/dL suggests IMPAIRED HOMEOSTASIS per A.D.A. criteria. Neutrophils (Bld) [#/Vol] 3.4 10*3/uL 2.0-7.7 [facility] Neutrophils/100 WBC (Bld) 55.5 % 47-70 [facility] Potassium [Moles/Vol] 3.6 mmol/L 3.5-5.1 [facility] Sodium [Moles/Vol] 139 mmol/L 136-145 [facility] WBC (Bld) [#/Vol] 6.2 10*3/uL 4.4-11.0 [facility] Blood erythrocytes count (nu mber/volume)Ordered By: Yesika Faust on 05-19-2023 RBC (Bld) [#/Vol] 4.24 10*6/uL 4.2-5.[address] [facility] Blood hemoglobin measurement (mass/volume)Ordered By: Yesika Faust on 05-19-2023 Hemoglobin (Bld) [Mass/Vol] 11.7 g/dL 12.0-15.0 [facility] Blood lymphocytes/100 leukoc ytesOrdered By: [facility] Ritemacarena Faust on 05-19-2023 Lymphocytes/100 WBC (Bld) 30.1 % 19-41 [facility] Blood monocytes/100 leukocyt esOrdered By: [facility] Ritemacarena Faust on 05-19-2023 Monocytes/100 WBC (Bld) 11.8 % 0-10 [facility] Blood platelet mean volumeOr dered By: [facility] Ritemacarena Faust on 05-19-2023 Platelet mean volume (Bld) [Entitic vol] 10.5 fL 6.2-12.0 [facility] Determination of erythrocyte mean corpuscular volume (MCV)Ordered By: [facility] Ritemacarena Butterfieldaida on 05-19-2023 MCV (RBC) [Entitic vol] 90.3 fL 81-99 [facility] Hematocrit Auto (Bld) [Volum e fraction]Ordered By: [facility] Ritemacarena Faust on 05-19-2023 Hematocrit (Bld) [Volume fraction] 38.3 % 37-47 [facility] Laboratory - Chemistry and C hemistry - challengeOrdered By: enriquetabayboromacarena Faust on 05-19-2023 CO2 [Moles/Vol] 29.0 mmol/L 21.0-32.0 [facility] Urea nitrogen/Creatinine [Mass ratio] 21.6 mg/mg 10-20 [facility] Laboratory - Hematology and Cell countsOrdered By: [facility] Ritemacarena Butterfieldaida on 05-19-2023 Erythrocyte distribution width (RBC) [Entitic vol] 50.2 fL 35.1-43.9 [facility] Erythrocyte distribution width (RBC) [Ratio] 15.2 % 11.6-14.6 [facility] Immature granulocytes/100 WBC (Bld) 0.300 % 0.0-0.9 [facility] Comment on above: IG% - Immature Granu locytes (promyelocytes, myelocytes and metamyelocytes) > 1% indicates that a LEFT SHIFT is Present. MCH (RBC) [Entitic mass] 27.6 pg 27.0-32.0 [facility] Nucleated RBC/100 WBC (Bld) [Ratio] 0 % 0-5 [facility] MCHC Auto (RBC) [Mass/Vol]Or dered By: Yesika Faust on 05-19-2023 MCHC (RBC) [Mass/Vol] 30.5 g/dL 32-36 [facility] No Panel InformationOrdered By: Yesika Faust on 05-19-2023 Estimated GFR (MDRD) Amer 74 mL/min >60 [facility] Comment on above: GFR Calc Estimated GFR (MDRD) Non-Af Amer 61 mL/min >60 [facility] Comment on above: Non- GFR Calc Platelets bldOrdered By: Randall Faust on 05-19-2023 Platelets (Bld) [#/Vol] 234 10*3/uL 150-450 [facility] Serum or plasma calcium madi urement (mass/volume)Ordered By: Yesika Faust on 05-19-2023 Calcium [Mass/Vol] 8.7 mg/dL 8.5-10.1 [facility] Serum or plasma creatinine m easurement (mass/volume)Ordered By: Yesika Faust on 05-19-2023 Creatinine [Mass/Vol] 0.92 mg/dL 0.55-1.02 [facility] Comment on above: The validity of the calculated GFR & GFRAA in patients over 70 years has not been determined. Clinical correlation is essential. Serum or plasma urea nitroge n measurement (mass/volume)Ordered By: Yesika Faust on 05-19-2023 Urea nitrogen [Mass/Vol] 20 mg/dL 7-18 [facility] Thin prep Papanicolaou smear with manual screeningOrdered By: Yesika Faust on 05-19-2023 Thin prep Papanicolaou smear with manual screening 3 5-15 [facility] Absolute lymphocyte countOrd ered By: Yesika Faust on 02-17-2023 Lymphocytes Auto (Unsp spec) [#/Vol] 1.67 10*3/uL 0.83-4.51 [facility] Basophil percentageOrdered B y: Yesika Faust on 02-17-2023 Basophils/100 WBC (Bld) 0.8 % 0-1 [facility] Chloride [Moles/Vol] 109 mmol/L 98-107 [facility] Eosinophils/100 WBC (Bld) 2.8 % 0-5 [facility] Glucose [Mass/Vol] 94 mg/dL 74-106 [facility] Neutrophils (Bld) [#/Vol] 3.9 10*3/uL 2.0-7.7 [facility] Neutrophils/100 WBC (Bld) 60.0 % 47-70 [facility] Potassium [Moles/Vol] 3.7 mmol/L 3.5-5.1 [facility] Sodium [Moles/Vol] 141 mmol/L 136-145 [facility] WBC (Bld) [#/Vol] 6.5 10*3/uL 4.4-11.0 [facility] Blood erythrocytes count (nu mber/volume)Ordered By: Yesika Faust on 02-17-2023 RBC (Bld) [#/Vol] 4.33 10*6/uL 4.2-5.[address] [facility] Blood hemoglobin measurement (mass/volume)Ordered By: Yesika Faust on 02-17-2023 Hemoglobin (Bld) [Mass/Vol] 11.4 g/dL 12.0-15.0 [facility] Blood lymphocytes/100 leukoc ytesOrdered By: Yesika Faust on 02-17-2023 Lymphocytes/100 WBC (Bld) 25.9 % 19-41 [facility] Blood monocytes/100 leukocyt esOrdered By: Yesika Faust on 02-17-2023 Monocytes/100 WBC (Bld) 10.2 % 0-10 [facility] Blood platelet mean volumeOr dered By: Yesika Faust on 02-17-2023 Platelet mean volume (Bld) [Entitic vol] 10.6 fL 6.2-12.0 [facility] Determination of erythrocyte mean corpuscular volume (MCV)Ordered By: Yesika Faust on 02-17-2023 MCV (RBC) [Entitic vol] 86.4 fL 81-99 [facility] Hematocrit Auto (Bld) [Volum e fraction]Ordered By: Yesika Faust on 02-17-2023 Hematocrit (Bld) [Volume fraction] 37.4 % 37-47 [facility] Laboratory - Chemistry and C hemistry - challengeOrdered By: Yesika Faust on 02-17-2023 CO2 [Moles/Vol] 28.0 mmol/L 21.0-32.0 [facility] Urea nitrogen/Creatinine [Mass ratio] 16.1 mg/mg 10-20 [facility] Laboratory - Hematology and Cell countsOrdered By: Yesika Faust on 02-17-2023 Erythrocyte distribution width (RBC) [Entitic vol] 56.0 fL 35.1-43.9 [facility] Erythrocyte distribution width (RBC) [Ratio] 17.5 % 11.6-14.6 [facility] Immature granulocytes/100 WBC (Bld) 0.300 % 0.0-0.9 [facility] Comment on above: IG% - Immature Granu locytes (promyelocytes, myelocytes and metamyelocytes) > 1% indicates that a LEFT SHIFT is Present. MCH (RBC) [Entitic mass] 26.3 pg 27.0-32.0 [facility] Nucleated RBC/100 WBC (Bld) [Ratio] 0 % 0-5 [facility] MCHC Auto (RBC) [Mass/Vol]Or dered By: Yesika Faust on 02-17-2023 MCHC (RBC) [Mass/Vol] 30.5 g/dL 32-36 [facility] No Panel InformationOrdered By: Yesika Faust on 02-17-2023 Estimated GFR (MDRD) Amer 106 mL/min >60 [facility] Comment on above: GFR Calc Estimated GFR (MDRD) Non-Af Amer 87 mL/min >60 [facility] Comment on above: Non- GFR Calc Platelets bldOrdered By: Randall Faust on 02-17-2023 Platelets (Bld) [#/Vol] 228 10*3/uL 150-450 [facility] Serum or plasma calcium madi urement (mass/volume)Ordered By: Yesika Faust on 02-17-2023 Calcium [Mass/Vol] 8.8 mg/dL 8.5-10.1 [facility] Serum or plasma creatinine m easurement (mass/volume)Ordered By: Yesika Faust on 02-17-2023 Creatinine [Mass/Vol] 0.68 mg/dL 0.55-1.02 [facility] Comment on above: The validity of the calculated GFR & GFRAA in patients over 70 years has not been determined. Clinical correlation is essential. Serum or plasma urea nitroge n measurement (mass/volume)Ordered By: Yesika Faust on 02-17-2023 Urea nitrogen [Mass/Vol] 11 mg/dL 7-18 [facility] Thin prep Papanicolaou smear with manual screeningOrdered By: Yesika Faust on 02-17-2023 Thin prep Papanicolaou smear with manual screening 4 5-15 [facility] Basophil percentageOrdered B y: Cl Tsang on 01-12-2023 Cholesterol [Mass/Vol] 112 mg/dL <200 [facility] Comment on above: <200 mg/dL Desirable 200-240 mg/dL Borderline >240 mg/dL High Risk Triglyceride [Mass/Vol] 110 mg/dL <199 [facility] Comment on above: The drugs N-Acetylcy steine and Metamizole may falsely depress this assay.Serum Triglycerides Reference Interval Normal <150 mg/dL Borderline high 150 - 199 mg/dL High 200 - 499 mg/dL Very High > or = 500 mg/dL Serum or plasma cholesterol in HDL measurement (mass/volume)Ordered By: Cl Tsang on 01-12-2023 Cholesterol in HDL [Mass/Vol] 50 mg/dL >40 [facility] Comment on above: The drugs N-Acetylcy steine and Metamizole may falsely depress this assay. Reference Range HDL <40 mg/dL Low HDL Cholesterol HDL >or= 60 mg/dL High HDL Cholesterol Serum or plasma cholesterol in VLDL measurement (mass/volume)Ordered By: Cl Tsang on 01-12-2023 Cholesterol in VLDL [Mass/Vol] 22 mg/dL 5-40 [facility] Serum or plasma low density lipoprotein (LDL) cholesterol measurement (mass/volume)Ordered By: Cl Tsang on 01-12-2023 Cholesterol in LDL [Mass/Vol] 40 mg/dL 0-130 [facility] Basophil percentageOrdered B y: Yesika Faust on 11-18-2022 Chloride [Moles/Vol] 108 mmol/L 98-107 [facility] Glucose [Mass/Vol] 114 mg/dL 74-106 [facility] Comment on above: Fasting Glucose resu lt from 100 to 125 mg/dL suggests IMPAIRED HOMEOSTASIS per A.D.A. criteria. Potassium [Moles/Vol] 4.1 mmol/L 3.5-5.1 [facility] Sodium [Moles/Vol] 142 mmol/L 136-145 [facility] WBC (Bld) [#/Vol] 5.6 10*3/uL 4.4-11.0 [facility] Blood erythrocytes count (nu mber/volume)Ordered By: Yesika Faust on 11-18-2022 RBC (Bld) [#/Vol] 3.89 10*6/uL 4.2-5.[address] [facility] Blood hemoglobin measurement (mass/volume)Ordered By: Yesika Faust on 11-18-2022 Hemoglobin (Bld) [Mass/Vol] 10.5 g/dL 12.0-15.0 [facility] Blood platelet mean volumeOr dered By: Yesika Faust on 11-18-2022 Platelet mean volume (Bld) [Entitic vol] 10.7 fL 6.2-12.0 [facility] Determination of erythrocyte mean corpuscular volume (MCV)Ordered By: Yesika Faust on 11-18-2022 MCV (RBC) [Entitic vol] 88.4 fL 81-99 [facility] Hematocrit Auto (Bld) [Volum e fraction]Ordered By: Yesika Faust on 11-18-2022 Hematocrit (Bld) [Volume fraction] 34.4 % 37-47 [facility] Laboratory - Chemistry and C hemistry - challengeOrdered By: Yesika Faust on 11-18-2022 CO2 [Moles/Vol] 27.0 mmol/L 21.0-32.0 [facility] Urea nitrogen/Creatinine [Mass ratio] 18.9 mg/mg 10-20 [facility] Laboratory - Hematology and Cell countsOrdered By: Yesika Faust on 11-18-2022 Erythrocyte distribution width (RBC) [Entitic vol] 43.8 fL 35.1-43.9 [facility] Erythrocyte distribution width (RBC) [Ratio] 13.4 % 11.6-14.6 [facility] MCH (RBC) [Entitic mass] 27.0 pg 27.0-32.0 [facility] MCHC Auto (RBC) [Mass/Vol]Or dered By: Yesika Faust on 11-18-2022 MCHC (RBC) [Mass/Vol] 30.5 g/dL 32-36 [facility] No Panel InformationOrdered By: Yesika Faust on 11-18-2022 Estimated GFR (MDRD) Amer 115 mL/min >60 [facility] Comment on above: GFR Calc Estimated GFR (MDRD) Non-Af Amer 95 mL/min >60 [facility] Comment on above: Non- GFR Calc Platelets bldOrdered By: Randall Faust on 11-18-2022 Platelets (Bld) [#/Vol] 247 10*3/uL 150-450 [facility] Serum or plasma calcium madi urement (mass/volume)Ordered By: Yesika Faust on 11-18-2022 Calcium [Mass/Vol] 9.1 mg/dL 8.5-10.1 [facility] Serum or plasma creatinine m easurement (mass/volume)Ordered By: Yesika Faust on 11-18-2022 Creatinine [Mass/Vol] 0.64 mg/dL 0.55-1.02 [facility] Comment on above: The validity of the calculated GFR & GFRAA in patients over 70 years has not been determined. Clinical correlation is essential. Serum or plasma urea nitroge n measurement (mass/volume)Ordered By: Yesika Faust on 11-18-2022 Urea nitrogen [Mass/Vol] 12 mg/dL 7-18 [facility] Thin prep Papanicolaou smear with manual screeningOrdered By: Yesika Faust on 11-18-2022 Thin prep Papanicolaou smear with manual screening 7 5-15 [facility] Absolute lymphocyte countOrd ered By: Yesika Faust on 08-19-2022 Lymphocytes Auto (Unsp spec) [#/Vol] 1.60 10*3/uL 0.83-4.51 [facility] Basophil percentageOrdered B y: Yesika Faust on 08-19-2022 Basophils/100 WBC (Bld) 0.4 % 0-1 [facility] Chloride [Moles/Vol] 105 mmol/L 98-107 [facility] Eosinophils/100 WBC (Bld) 0.2 % 0-5 [facility] Glucose [Mass/Vol] 96 mg/dL 74-106 [facility] Neutrophils (Bld) [#/Vol] 3.3 10*3/uL 2.0-7.7 [facility] Neutrophils/100 WBC (Bld) 59.4 % 47-70 [facility] Potassium [Moles/Vol] 4.0 mmol/L 3.5-5.1 [facility] Sodium [Moles/Vol] 141 mmol/L 136-145 [facility] WBC (Bld) [#/Vol] 5.6 10*3/uL 4.4-11.0 [facility] Blood erythrocytes count (nu mber/volume)Ordered By: Yesika Faust on 08-19-2022 RBC (Bld) [#/Vol] 4.44 10*6/uL 4.2-5.[address] [facility] Blood hemoglobin measurement (mass/volume)Ordered By: Yesika Faust on 08-19-2022 Hemoglobin (Bld) [Mass/Vol] 13.0 g/dL 12.0-15.0 [facility] Blood lymphocytes/100 leukoc ytesOrdered By: Yesika Faust on 08-19-2022 Lymphocytes/100 WBC (Bld) 28.8 % 19-41 [facility] Blood monocytes/100 leukocyt esOrdered By: Yesika Faust on 08-19-2022 Monocytes/100 WBC (Bld) 11.0 % 0-10 [facility] Blood platelet mean volumeOr dered By: Yesika Faust on 08-19-2022 Platelet mean volume (Bld) [Entitic vol] 10.7 fL 6.2-12.0 [facility] Determination of erythrocyte mean corpuscular volume (MCV)Ordered By: Yesika Faust on 08-19-2022 MCV (RBC) [Entitic vol] 93.0 fL 81-99 [facility] Hematocrit Auto (Bld) [Volum e fraction]Ordered By: Yesika Faust on 08-19-2022 Hematocrit (Bld) [Volume fraction] 41.3 % 37-47 [facility] Laboratory - Chemistry and C hemistry - challengeOrdered By: Yesika Faust on 08-19-2022 CO2 [Moles/Vol] 29.0 mmol/L 21.0-32.0 [facility] Urea nitrogen/Creatinine [Mass ratio] 19.4 mg/mg 10-20 [facility] Laboratory - Hematology and Cell countsOrdered By: Yesika Faust on 08-19-2022 Erythrocyte distribution width (RBC) [Entitic vol] 44.3 fL 35.1-43.9 [facility] Erythrocyte distribution width (RBC) [Ratio] 12.9 % 11.6-14.6 [facility] Immature granulocytes/100 WBC (Bld) 0.200 % 0.0-0.9 [facility] Comment on above: IG% - Immature Granu locytes (promyelocytes, myelocytes and metamyelocytes) > 1% indicates that a LEFT SHIFT is Present. MCH (RBC) [Entitic mass] 29.3 pg 27.0-32.0 [facility] Nucleated RBC/100 WBC (Bld) [Ratio] 0 % 0-5 [facility] MCHC Auto (RBC) [Mass/Vol]Or dered By: Yesika Faust on 08-19-2022 MCHC (RBC) [Mass/Vol] 31.5 g/dL 32-36 [facility] No Panel InformationOrdered By: Yesika Faust on 08-19-2022 Estimated GFR (MDRD) Amer 99 mL/min >60 [facility] Comment on above: GFR Calc Estimated GFR (MDRD) Non-Af Amer 82 mL/min >60 [facility] Comment on above: Non- GFR Calc Platelets bldOrdered By: Randall valarie Christianne on 08-19-2022 Platelets (Bld) [#/Vol] 216 10*3/uL 150-450 [facility] Serum or plasma calcium madi urement (mass/volume)Ordered By: Yesika Faust on 08-19-2022 Calcium [Mass/Vol] 9.4 mg/dL 8.5-10.1 [facility] Serum or plasma creatinine m easurement (mass/volume)Ordered By: Yesika Faust on 08-19-2022 Creatinine [Mass/Vol] 0.72 mg/dL 0.55-1.02 [facility] Comment on above: The validity of the calculated GFR & GFRAA in patients over 70 years has not been determined. Clinical correlation is essential. Serum or plasma urea nitroge n measurement (mass/volume)Ordered By: Jedsaeidmacarena Faust on 08-19-2022 Urea nitrogen [Mass/Vol] 14 mg/dL 7-18 [facility] Thin prep Papanicolaou smear with manual screeningOrdered By: Jedsaeidmacarena Faust on 08-19-2022 Thin prep Papanicolaou smear with manual screening 7 5-15 [facility] Absolute lymphocyte counton 05-20-2022 Lymphocytes Auto (Unsp spec) [#/Vol] 1.88 10*3/uL 0.83-4.51 [facility] Work Phone: Basophil percentageon 2021 Basophils/100 WBC (Bld) 0.7 % 0-1 [facility] Work Phone: Chloride [Moles/Vol] 111 mmol/L 98-107 [facility] Work Phone: Eosinophils/100 WBC (Bld) 4.0 % 0-5 [facility] Work Phone: Glucose [Mass/Vol] 94 mg/dL 74-106 [facility] Work Phone: Neutrophils (Bld) [#/Vol] 3.3 10*3/uL 2.0-7.7 [facility] Work Phone: Neutrophils/100 WBC (Bld) 55.6 % 47-70 [facility] Work Phone: Potassium [Moles/Vol] 4.1 mmol/L 3.5-5.1 [facility] Work Phone: Sodium [Moles/Vol] 139 mmol/L 136-145 [facility] Work Phone: WBC (Bld) [#/Vol] 6.0 10*3/uL 4.4-11.0 [facility] Work Phone: Blood erythrocytes count (nu mber/volume)on 05-20-2022 RBC (Bld) [#/Vol] 4.01 10*6/uL 4.2-5.[address] [facility] Work Phone: Blood hemoglobin measurement (mass/volume)on 05-20-2022 Hemoglobin (Bld) [Mass/Vol] 13.0 g/dL 12.0-15.0 [facility] Work Phone: Blood lymphocytes/100 leukoc yteson 05-20-2022 Lymphocytes/100 WBC (Bld) 31.5 % 19-41 [facility] Work Phone: Blood monocytes/100 leukocyt eson 05-20-2022 Monocytes/100 WBC (Bld) 8.0 % 0-10 [facility] Work Phone: Blood platelet mean volumeon 05-20-2022 Platelet mean volume (Bld) [Entitic vol] 10.3 fL 6.2-12.0 [facility] Work Phone: Determination of erythrocyte mean corpuscular volume (MCV)on 05-20-2022 MCV (RBC) [Entitic vol] 99.3 fL 81-99 [facility] Work Phone: Hematocrit Auto (Bld) [Volum e fraction]on 05-20-2022 Hematocrit (Bld) [Volume fraction] 39.8 % 37-47 [facility] Work Phone: Laboratory - Chemistry and C hemistry - challengeon 05-20-2022 CO2 [Moles/Vol] 17.0 mmol/L 21.0-32.0 [facility] Work Phone: Urea nitrogen/Creatinine [Mass ratio] 13.2 mg/mg 10-20 [facility] Work Phone: Laboratory - Hematology and Cell countson 05-20-2022 Erythrocyte distribution width (RBC) [Entitic vol] 52.0 fL 35.1-43.9 [facility] Work Phone: Erythrocyte distribution width (RBC) [Ratio] 14.4 % 11.6-14.6 [facility] Work Phone: Immature granulocytes/100 WBC (Bld) 0.200 % 0.0-0.9 [facility] Work Phone: Comment on above: IG% - Immature Granu locytes (promyelocytes, myelocytes and metamyelocytes) > 1% indicates that a LEFT SHIFT is Present. MCH (RBC) [Entitic mass] 32.4 pg 27.0-32.0 [facility] Work Phone: Nucleated RBC/100 WBC (Bld) [Ratio] 0 % 0-5 [facility] Work Phone: MCHC Auto (RBC) [Mass/Vol]on 05-20-2022 MCHC (RBC) [Mass/Vol] 32.7 g/dL 32-36 [facility] Work Phone: No Panel Informationon 05-20 Estimated GFR (MDRD) Amer 94 mL/min >60 [facility] Work Phone: Comment on above: GFR Calc Estimated GFR (MDRD) Non-Af Amer 77 mL/min >60 [facility] Work Phone: Comment on above: Non- GFR Calc Platelets bldon 05-20-2022 Platelets (Bld) [#/Vol] 188 10*3/uL 150-450 [facility] Work Phone: Serum or plasma calcium madi urement (mass/volume)on 05-20-2022 Calcium [Mass/Vol] 9.5 mg/dL 8.5-10.1 [facility] Work Phone: Serum or plasma creatinine m easurement (mass/volume)on 05-20-2022 Creatinine [Mass/Vol] 0.76 mg/dL 0.55-1.02 [facility] Work Phone: Comment on above: The validity of the calculated GFR & GFRAA in patients over 70 years has not been determined. Clinical correlation is essential. Serum or plasma urea nitroge n measurement (mass/volume)on 05-20-2022 Urea nitrogen [Mass/Vol] 10 mg/dL 7-18 [facility] Work Phone: Thin prep Papanicolaou smear with manual screeningon 05-20-2022 Thin prep Papanicolaou smear with manual screening 11 5-15 [facility] Work Phone: Bilirubin Test strip Ql (U)o n 03-07-2022 Bilirubin Ql (U) Negative Negative [facility] Work Phone: Ketones Test strip Ql (U)on 03-07-2022 Ketones Ql (U) Negative Negative [facility] Work Phone: Nitrite Test strip Ql (U)on 03-07-2022 Nitrite Ql (U) Positive Negative [facility] Work Phone: Protein Test strip Ql (U)on 03-07-2022 Protein Ql (U) Negative Negative [facility] Work Phone: Urine blood detectionon 02-13 RBC Ql (U) 25 /ul Negative [facility] Work Phone: Urine clarityon 03-07-2022 Clarity (U) Clear Clear [facility] Work Phone: Urine color determinationon 03-07-2022 Color (U) Yellow Yellow [facility] Work Phone: Urine glucose detectionon Glucose Ql (U) Normal mg/dl Normal [facility] Work Phone: Urine leukocyte esterase det ection by dipstickon 03-07-2022 Leukocyte esterase Test strip Ql (U) 500 /ul Negative [facility] Work Phone: Urine pHon 03-07-2022 pH (U) 6.5 [pH] 5.0 - 8.0 [facility] Work Phone: Urine specific gravity measu rementon 03-07-2022 Specific gravity (U) [Rel density] 1.010 1.002-1.03 0 [facility] Work Phone: Urobilinogen Auto test strip Ql (U)on 03-07-2022 Urobilinogen Ql (U) Normal mg/dl Normal [facility] Work Phone: Basophil percentageon 2021 Cholesterol [Mass/Vol] 117 mg/dL <200 [facility] Work Phone: Comment on above: <200 mg/dL Desirable 200-240 mg/dL Borderline >240 mg/dL High Risk Triglyceride [Mass/Vol] 118 mg/dL [facility] Work Phone: Comment on above: The drugs N-Acetylcy steine and Metamizole may falsely depress this assay.Serum Triglycerides Reference Interval Normal <150 mg/dL Borderline high 150 - 199 mg/dL High 200 - 499 mg/dL Very High > or = 500 mg/dL Serum or plasma cholesterol in HDL measurement (mass/volume)on 01-13-2022 Cholesterol in HDL [Mass/Vol] 44 mg/dL [facility] Work Phone: Comment on above: The drugs N-Acetylcy steine and Metamizole may falsely depress this assay. Reference Range HDL <40 mg/dL Low HDL Cholesterol HDL >or= 60 mg/dL High HDL Cholesterol Serum or plasma cholesterol in VLDL measurement (mass/volume)on 01-13-2022 Cholesterol in VLDL [Mass/Vol] 24 mg/dL 5-40 [facility] Work Phone: Serum or plasma low density lipoprotein (LDL) cholesterol measurement (mass/volume)on 01-13-2022 Cholesterol in LDL [Mass/Vol] 49 mg/dL 0-130 [facility] Work Phone: Absolute lymphocyte counton 11-12-2021 Lymphocytes Auto (Unsp spec) [#/Vol] 1.48 10*3/uL 0.83-4.51 [facility] Work Phone: Basophil percentageon 2021 Basophils/100 WBC (Bld) 0.5 % 0-1 [facility] Work Phone: Chloride [Moles/Vol] 108 mmol/L 98-107 [facility] Work Phone: Eosinophils/100 WBC (Bld) 1.4 % 0-5 [facility] Work Phone: Glucose [Mass/Vol] 105 mg/dL 74-106 [facility] Work Phone: Comment on above: Fasting Glucose resu lt from 100 to 125 mg/dL suggests IMPAIRED HOMEOSTASIS per A.D.A. criteria. Neutrophils (Bld) [#/Vol] 3.5 10*3/uL 2.0-7.7 [facility] Work Phone: Neutrophils/100 WBC (Bld) 61.7 % 47-70 [facility] Work Phone: Potassium [Moles/Vol] 3.8 mmol/L 3.5-5.1 [facility] Work Phone: Sodium [Moles/Vol] 139 mmol/L 136-145 [facility] Work Phone: WBC (Bld) [#/Vol] 5.7 10*3/uL 4.4-11.0 [facility] Work Phone: Blood erythrocytes count (nu mber/volume)on 11-12-2021 RBC (Bld) [#/Vol] 4.44 10*6/uL 4.2-5.[address] [facility] Work Phone: Blood hemoglobin measurement (mass/volume)on 11-12-2021 Hemoglobin (Bld) [Mass/Vol] 13.7 g/dL 12.0-15.0 [facility] Work Phone: Blood lymphocytes/100 leukoc yteson 11-12-2021 Lymphocytes/100 WBC (Bld) 26.0 % 19-41 [facility] Work Phone: Blood monocytes/100 leukocyt eson 11-12-2021 Monocytes/100 WBC (Bld) 10.0 % 0-10 [facility] Work Phone: Blood platelet mean volumeon 11-12-2021 Platelet mean volume (Bld) [Entitic vol] 10.2 fL 6.2-12.0 [facility] Work Phone: Determination of erythrocyte mean corpuscular volume (MCV)on 11-12-2021 MCV (RBC) [Entitic vol] 89.4 fL 81-99 [facility] Work Phone: Hematocrit Auto (Bld) [Volum e fraction]on 11-12-2021 Hematocrit (Bld) [Volume fraction] 39.7 % 37-47 [facility] Work Phone: Laboratory - Chemistry and C hemistry - challengeon 11-12-2021 CO2 [Moles/Vol] 29.0 mmol/L 21.0-32.0 [facility] Work Phone: Urea nitrogen/Creatinine [Mass ratio] 16.9 mg/mg 10-20 [facility] Work Phone: Laboratory - Hematology and Cell countson 11-12-2021 Erythrocyte distribution width (RBC) [Entitic vol] 41.8 fL 35.1-43.9 [facility] Work Phone: Erythrocyte distribution width (RBC) [Ratio] 12.8 % 11.6-14.6 [facility] Work Phone: Immature granulocytes/100 WBC (Bld) 0.400 % 0.0-0.9 [facility] Work Phone: Comment on above: IG% - Immature Granu locytes (promyelocytes, myelocytes and metamyelocytes) > 1% indicates that a LEFT SHIFT is Present. MCH (RBC) [Entitic mass] 30.9 pg 27.0-32.0 [facility] Work Phone: Nucleated RBC/100 WBC (Bld) [Ratio] 0 % 0-5 [facility] Work Phone: MCHC Auto (RBC) [Mass/Vol]on 11-12-2021 MCHC (RBC) [Mass/Vol] 34.5 g/dL 32-36 [facility] Work Phone: No Panel Informationon 11-12 Estimated GFR (MDRD) Amer 101 mL/min >60 [facility] Work Phone: Comment on above: GFR Calc Estimated GFR (MDRD) Non-Af Amer 84 mL/min >60 [facility] Work Phone: Comment on above: Non- GFR Calc Platelets bldon 11-12-2021 Platelets (Bld) [#/Vol] 194 10*3/uL 150-450 [facility] Work Phone: Serum or plasma calcium madi urement (mass/volume)on 11-12-2021 Calcium [Mass/Vol] 9.5 mg/dL 8.5-10.1 [facility] Work Phone: Serum or plasma creatinine m easurement (mass/volume)on 11-12-2021 Creatinine [Mass/Vol] 0.71 mg/dL 0.55-1.02 [facility] Work Phone: Comment on above: The validity of the calculated GFR & GFRAA in patients over 70 years has not been determined. Clinical correlation is essential. Serum or plasma urea nitroge n measurement (mass/volume)on 11-12-2021 Urea nitrogen [Mass/Vol] 12 mg/dL 7-18 [facility] Work Phone: Thin prep Papanicolaou smear with manual screeningon 11-12-2021 Thin prep Papanicolaou smear with manual screening 2 5-15 [facility] Work Phone: XR SPINE CERVICAL 1 VIEWon [...] Date: 07/04/2019 10:22:47 AM Ordering Provider:Dc Mota [facility] ([place]) .GFRon 06-09-2019 GFR >60 [facility] ([place] Comment on above: Result Comment: GFR Population [...] #### C BC, DIFF, MORPH, BMP, GFR ####Amy [place] [address] GFR Non- >60 [facility] ([place]) Comment on above: Result Comment: GFR Population [...] C BC, DIFF, MORPH, BMP, GFR ####[id number] [place], [place] [address] .Manual Diffon 06-09-2019 Basophil %, Manual 1.0 % Normal 0.0-2.5 [facility] ([place]) Comment on above: Performed By: #### C BC, DIFF, MORPH, BMP, GFR ####[place] [address] Basophil, Abs Manual 0.08 10 3/mcL Normal 0.00-0.27 [facility] ([place]) Comment on above: Performed By: #### C BC, DIFF, MORPH, BMP, GFR ####[place] [address] Cells Counted 100 Normal [facility] ([place]) Comment on above: Performed By: #### C BC, DIFF, MORPH, BMP, GFR ####[place] [address] Eosinophil %, Manual 2.0 % Normal 0.0-6.0 [facility] ([place]) Comment on above: Performed By: #### C BC, DIFF, MORPH, BMP, GFR ####[place] [address] Eosinophil, Abs Manual 0.16 10 3/mcL Normal 0.00-0.65 [facility] ([place]) Comment on above: Performed By: #### C BC, DIFF, MORPH, BMP, GFR ####[place] [address] Lymphocyte %, Manual 9.0 % Low 20.0-40.0 [facility] ([place]) Comment on above: Performed By: #### C BC, DIFF, MORPH, BMP, GFR ####[place] [address] Lymphocyte, Abs Manual 0.72 10 3/mcL Low 0.90-4.32 [facility] ([place]) Comment on above: Performed By: #### C BC, DIFF, MORPH, BMP, GFR ####[place] [address] Monocyte %, Manual 6.0 % Normal 2.0-13.0 [facility] ([place]) Comment on above: Performed By: #### C BC, DIFF, MORPH, BMP, GFR ####[place] [address] Monocyte, Abs Manual 0.48 10 3/mcL Normal 0.09-1.40 [facility] ([place]) Comment on above: Performed By: #### C BC, DIFF, MORPH, BMP, GFR ####[place] [address] Myelocyte 1.0 % Normal [facility] ([place]) Comment on above: Performed By: #### C BC, DIFF, MORPH, BMP, GFR ####[place] [address] Neutrophil %, Manual 81.0 % High 50.0-75.0 [facility] ([place]) Comment on above: Performed By: #### C BC, DIFF, MORPH, BMP, GFR ####[place] [address] Neutrophil, Abs Manual 6.48 10 3/mcL Normal 2.25-8.10 [facility] ([place]) Comment on above: Performed By: #### C BC, DIFF, MORPH, BMP, GFR ####[place] [address] .Morphon 06-09-2019 Platelets (Bld) [#/Vol] Normal Normal [facility] ([place]) Comment on above: Performed By: #### C BC, DIFF, MORPH, BMP, GFR ####[place] [address] Polychrom Slight Normal [facility] ([place]) Comment on above: Performed By: #### C BC, DIFF, MORPH, BMP, GFR ####[place] [address] BMPon 06-09-2019 Creatinine [Mass/Vol] 0.75 mg/dL Normal 0.50-1.20 [facility] ([place]) Comment on above: Performed By: #### C BC, DIFF, MORPH, BMP, GFR ####[place] [address] Urea nitrogen/Creatinine [Mass ratio] 18.7 ratio Normal 10.0-22.0 [facility] ([place]) Comment on above: Performed By: #### C BC, DIFF, MORPH, BMP, GFR ####[address] [address] Calcium [Mass/Vol] 8.2 mg/dL Low 8.4-10.1 [facility] ([place]) Comment on above: Performed By: #### C BC, DIFF, MORPH, BMP, GFR ####[address] [address] Chloride [Moles/Vol] 106 mmol/L Normal 98-110 [facility] ([place]) Comment on above: Performed By: #### C BC, DIFF, MORPH, BMP, GFR ####[address] [address] CO2 [Moles/Vol] 18 mmol/L Low 22-32 [facility] ([place]) Comment on above: Performed By: #### C BC, DIFF, MORPH, BMP, GFR ####[address] [address] Electrolyte Balance 16.0 mEq/L High 4.0-15.0 [facility] ([place]) Comment on above: Performed By: #### C BC, DIFF, MORPH, BMP, GFR ####[address] [address] Glucose [Mass/Vol] 109 mg/dL Normal 82-115 [facility] ([place]) Comment on above: Performed By: #### C BC, DIFF, MORPH, BMP, GFR ####[address] [address] Potassium [Moles/Vol] 3.8 mmol/L Normal 3.5-5.0 [facility] ([place]) Comment on above: Performed By: #### C BC, DIFF, MORPH, BMP, GFR ####[address] [address] Sodium [Moles/Vol] 140 mmol/L Normal 136-145 [facility] ([place]) Comment on above: Performed By: #### C BC, DIFF, MORPH, BMP, GFR ####[address] [address] Urea nitrogen [Mass/Vol] 14.0 mg/dL Normal 8.0-22.0 [facility] ([place]) Comment on above: Performed By: #### C BC, DIFF, MORPH, BMP, GFR ####[address] [address] CBCon 06-09-2019 Platelet mean volume (Bld) [Entitic vol] 8.6 fL Normal 6.6-10.5 [facility] ([place]) Comment on above: Performed By: #### C BC, DIFF, MORPH, BMP, GFR ####[address] [address] Platelets (Bld) [#/Vol] 229 10 3/mcL Normal 150-450 [facility] ([place]) Comment on above: Performed By: #### C BC, DIFF, MORPH, BMP, GFR ####[address] [address] WBC (Bld) [#/Vol] 8.00 10 3/mcL Normal 4.50-10.80 [facility] ([place]) Comment on above: Performed By: #### C BC, DIFF, MORPH, BMP, GFR ####[place] [address] Erythrocyte distribution width (RBC) [Ratio] 13.8 % Normal 11.5-15.5 [facility] ([place]) Comment on above: Performed By: #### C BC, DIFF, MORPH, BMP, GFR ####[address] [address] Hematocrit (Bld) [Volume fraction] 26.6 % Low 34.0-46.0 [facility] ([place]) Comment on above: Performed By: #### C BC, DIFF, MORPH, BMP, GFR ####[address] [address] Hemoglobin (Bld) [Mass/Vol] 9.1 G/dL Low 12.0-16.0 [facility] ([place]) Comment on above: Performed By: #### C BC, DIFF, MORPH, BMP, GFR ####[address] [address] MCH (RBC) [Entitic mass] 30.1 pg Normal 27.0-33.0 [facility] ([place]) Comment on above: Performed By: #### C BC, DIFF, MORPH, BMP, GFR ####[address] [address] MCHC (RBC) [Mass/Vol] 34.3 G/dL Normal 32.0-36.0 [facility] ([place]) Comment on above: Performed By: #### C BC, DIFF, MORPH, BMP, GFR ####[place] [address] MCV (RBC) [Entitic vol] 87.9 fL Normal 80.0-99.0 [facility] ([place]) Comment on above: Performed By: #### C BC, DIFF, MORPH, BMP, GFR ####[place] [address] RBC (Bld) [#/Vol] 3.03 10 6/mcL Low 4.10-5.30 [facility] ([place]) Comment on above: Performed By: #### C BC, DIFF, MORPH, BMP, GFR ####[place] [address] XR CHEST 2 VIEWSon 9 XR CHEST [...] AM Sign Date: 06/09/2019 7:22:18 AM Normal [facility] ([place]) .GFRon 06-08-2019 GFR >60 Normal [facility] ([place]) Comment on above: Result Comment: GFR Population [...] meters Performed By: #### B MP, GFR ####[address] [address] GFR Non- >60 Normal [facility] ([place]) Comment on above: Result Comment: GFR Population [...] meters Performed By: #### B MP, GFR ####[address] [address] BMPon 06-08-2019 Creatinine [Mass/Vol] 0.60 mg/dL Normal 0.50-1.20 [facility] ([place]) Comment on above: Performed By: #### B MP, GFR ####[address] [address] Urea nitrogen/Creatinine [Mass ratio] 21.7 ratio Normal 10.0-22.0 [facility] ([place]) Comment on above: Performed By: #### B MP, GFR ####[address] [address] Calcium [Mass/Vol] 7.9 mg/dL Low 8.4-10.1 [facility] ([place]) Comment on above: Performed By: #### B MP, GFR ####[address] [address] Chloride [Moles/Vol] 107 mmol/L Normal 98-110 [facility] ([place]) Comment on above: Performed By: #### B MP, GFR ####[address] [address] CO2 [Moles/Vol] 28 mmol/L Normal 22-32 [facility] ([place]) Comment on above: Performed By: #### B MP, GFR ####[address] [address] Electrolyte Balance 8.0 mEq/L Normal 4.0-15.0 [facility] ([place]) Comment on above: Performed By: #### B MP, GFR ####[address] [address] Glucose [Mass/Vol] 115 mg/dL Normal 82-115 [facility] ([place]) Comment on above: Performed By: #### B MP, GFR ####[address] [address] Potassium [Moles/Vol] 3.7 mmol/L Normal 3.5-5.0 [facility] ([place]) Comment on above: Performed By: #### B MP, GFR ####[address] [address] Sodium [Moles/Vol] 143 mmol/L Normal 136-145 [facility] ([place]) Comment on above: Performed By: #### B MP, GFR ####[address] [address] Urea nitrogen [Mass/Vol] 13.0 mg/dL Normal 8.0-22.0 [facility] ([place]) Comment on above: Performed By: #### B MP, GFR ####[address] [address] XR CHEST 2 VIEWSon 9 XR CHEST [...] AM Sign Date: 06/08/2019 6:29:24 AM Normal [facility] ([place]) .Auto Diffon 06-07-2019 Ammonia (P) [Mass/Vol] 0.40 10 3/mcL Normal 0.09-1.40 [facility] ([place]) Comment on above: Performed By: #### C BC, ADIFF, ANEU, CMP, GFR ####[address] [address] Basophils (Bld) [#/Vol] 0.00 10 3/mcL Normal 0.00-0.27 [facility] ([place]) Comment on above: Performed By: #### C BC, ADIFF, ANEU, CMP, GFR ####[address] [address] Basophils/100 WBC (Bld) 0.4 % Normal 0.0-2.5 [facility] ([place] Comment on above: Performed By: #### C BC, ADIFF, ANEU, CMP, GFR ####[address] [address] Eosinophils (Bld) [#/Vol] 0.30 10 3/mcL Normal 0.00-0.65 [facility] ([place]) Comment on above: Performed By: #### C BC, ADIFF, ANEU, CMP, GFR ####[address] [address] Eosinophils/100 WBC (Bld) 6.6 % High 0.0-6.0 [facility] ([place]) Comment on above: Performed By: #### C BC, ADIFF, ANEU, CMP, GFR ####[address] [address] Lymphocytes (Bld) [#/Vol] 1.00 10 3/mcL Normal 0.90-4.32 [facility] ([place]) Comment on above: Performed By: #### C BC, ADIFF, ANEU, CMP, GFR ####[address] [address] Lymphocytes/100 WBC (Bld) 19.0 % Low 20.0-40.0 [facility] ([place]) Comment on above: Performed By: #### C BC, ADIFF, ANEU, CMP, GFR ####[address] [address] Monocytes/100 WBC (Bld) 7.4 % Normal 2.0-13.0 [facility] ([place] Comment on above: Performed By: #### C BC, ADIFF, ANEU, CMP, GFR ####[address] [address] Neutrophils/100 WBC (Bld) 66.6 % Normal 50.0-75.0 [facility] ([place]) Comment on above: Performed By: #### C BC, ADIFF, ANEU, CMP, GFR ####[address] [address] Ammonia (P) [Mass/Vol] 0.50 10 3/mcL Normal 0.09-1.40 [facility] ([place] Comment on above: Performed By: #### C BC, ADIFF, ANEU, BMP, GFR ####[address] [address] Basophils (Bld) [#/Vol] 0.00 10 3/mcL Normal 0.00-0.27 [facility] ([place] Comment on above: Performed By: #### C BC, ADIFF, ANEU, BMP, GFR ####[address] [address] Basophils/100 WBC (Bld) 0.7 % Normal 0.0-2.5 [facility] ([place]) Comment on above: Performed By: #### C BC, ADIFF, ANEU, BMP, GFR ####[address] [address] Eosinophils (Bld) [#/Vol] 0.10 10 3/mcL Normal 0.00-0.65 [facility] ([place]) Comment on above: Performed By: #### C BC, ADIFF, ANEU, BMP, GFR ####[address] [address] Eosinophils/100 WBC (Bld) 1.8 % Normal 0.0-6.0 [facility] ([place]) Comment on above: Performed By: #### C BC, ADIFF, ANEU, BMP, GFR ####[address] [address] Lymphocytes (Bld) [#/Vol] 2.10 10 3/mcL Normal 0.90-4.32 [facility] ([place] Comment on above: Performed By: #### C BC, ADIFF, ANEU, BMP, GFR ####[address] [address] Lymphocytes/100 WBC (Bld) 32.8 % Normal 20.0-40.0 [facility] ([place]) Comment on above: Performed By: #### C BC, ADIFF, ANEU, BMP, GFR ####[address] [address] Monocytes/100 WBC (Bld) 7.1 % Normal 2.0-13.0 [facility] ([place]) Comment on above: Performed By: #### C BC, ADIFF, ANEU, BMP, GFR ####[address] [address] Neutrophils/100 WBC (Bld) 57.6 % Normal 50.0-75.0 [facility] ([place]) Comment on above: Performed By: #### C BC, ADIFF, ANEU, BMP, GFR ####[address], [place] [address] Ammonia (P) [Mass/Vol] 0.60 10 3/mcL Normal 0.09-1.40 [facility] ([place]) Comment on above: Performed By: #### C STEPHANIE KRISHNAMURTHY, ANEU #### [address] [address] #### BMP, GFR #### [address] [address] Basophils (Bld) [#/Vol] 0.00 10 3/mcL Normal 0.00-0.27 [facility] ([place] Comment on above: Performed By: #### C STEPHANIE KRISHNAMURTHY, ANEU #### [place] [address] #### BMP, GFR #### [address] [address] Basophils/100 WBC (Bld) 0.5 % Normal 0.0-2.5 [facility] ([place] Comment on above: Performed By: #### C STEPHANIE KRISHNAMURTHY, ANEU #### [address] [address] #### BMP, GFR #### [address] [address] Eosinophils (Bld) [#/Vol] 0.10 10 3/mcL Normal 0.00-0.65 [facility] ([place]) Comment on above: Performed By: #### C STEPHANIE KRISHNAMURTHY, ANEU #### [place] [address] #### BMP, GFR #### [address] [address] Eosinophils/100 WBC (Bld) 2.2 % Normal 0.0-6.0 [facility] ([place]) Comment on above: Performed By: #### C RAGHU ADIFF, ANEU #### [address] [address] #### BMP, GFR #### [address] [address] Lymphocytes (Bld) [#/Vol] 0.80 10 3/mcL Low 0.90-4.32 [facility] ([place] Comment on above: Performed By: #### C BC, ADIFF, ANEU #### [address] [address] #### BMP, GFR #### [address] [address] Lymphocytes/100 WBC (Bld) 12.3 % Low 20.0-40.0 [facility] ([place] Comment on above: Performed By: #### C BC, ADIFF, ANEU #### [address] [address] #### BMP, GFR #### [address] [address] Monocytes/100 WBC (Bld) 9.5 % Normal 2.0-13.0 [facility] ([place] Comment on above: Performed By: #### C BC, ADIFF, ANEU #### [address] [address] #### BMP, GFR #### [address] [address] Neutrophils/100 WBC (Bld) 75.5 % High 50.0-75.0 [facility] ([place] Comment on above: Performed By: #### C BC, ADIFF, ANEU #### [address] [address] #### BMP, GFR #### [address] [address] .GFRon 06-07-2019 GFR >60 Normal [facility] ([place]) Comment on above: Result Comment: GFR Population [...] #### C BC, ADIFF, ANEU, CMP, GFR ####[address] [address] GFR Non- >60 Normal [facility] ([place] Comment on above: Result Comment: GFR Population [...] #### C BC, ADIFF, ANEU, CMP, GFR ####[address] [address] GFR >60 Normal [facility] ([place]) Comment on above: Result Comment: GFR Population [...] #### C BC, ADIFF, ANEU, BMP, GFR ####[address] [address] GFR Non- >60 Normal [facility] ([place] Comment on above: Result Comment: GFR Population [...] #### C RAGHU, STEPHANIE, ANEU, BMP, GFR ####[address] [address] GFR Non- >60 Normal [facility] ([place] Comment on above: Result Comment: GFR Population [...] #### C BC, STEPHANIE, ANEU, BMP, GFR ####[address] [address] GFR >60 Normal [facility] ([place]) Comment on above: Result Comment: GFR Population [...] #### C BC, ADIFF, ANEU, BMP, GFR ####[address] [address] .NEUABSon 06-07-2019 Neutrophils (Bld) [#/Vol] 3.40 10 3/mcL Normal 2.25-8.10 [facility] ([place] Comment on above: Performed By: #### C BC, ADIFF, ANEU, CMP, GFR ####[place] [address] Neutrophils (Bld) [#/Vol] 3.80 10 3/mcL Normal 2.25-8.10 [facility] ([place]) Comment on above: Performed By: #### C BC, ADIFF, ANEU, BMP, GFR ####[place] [address] Neutrophils (Bld) [#/Vol] 5.00 10 3/mcL Normal 2.25-8.10 [facility] ([place] Comment on above: Performed By: #### C BC, ADIFF, ANEU #### [address] [address] #### BMP, GFR #### [place] [address] BMPon 06-07-2019 Creatinine [Mass/Vol] 0.66 mg/dL Normal 0.50-1.20 [facility] ([place]) Comment on above: Performed By: #### C BC, ADIFF, ANEU, BMP, GFR ####[place] [address] Urea nitrogen/Creatinine [Mass ratio] 16.7 ratio Normal 10.0-22.0 [facility] ([place] Comment on above: Performed By: #### C BC, ADIFF, ANEU, BMP, GFR ####[place] [address] Calcium [Mass/Vol] 7.8 mg/dL Low 8.4-10.1 [facility] ([place]) Comment on above: Performed By: #### C BC, ADIFF, ANEU, BMP, GFR ####[address] [address] Chloride [Moles/Vol] 106 mmol/L Normal 98-110 [facility] ([place]) Comment on above: Performed By: #### C BC, ADIFF, ANEU, BMP, GFR ####[address] [address] CO2 [Moles/Vol] 26 mmol/L Normal 22-32 [facility] ([place]) Comment on above: Performed By: #### C BC, ADIFF, ANEU, BMP, GFR ####[address] [address] Electrolyte Balance 9.0 mEq/L Normal 4.0-15.0 [facility] ([place]) Comment on above: Performed By: #### C BC, ADIFF, ANEU, BMP, GFR ####[address] [address] Glucose [Mass/Vol] 101 mg/dL Normal 82-115 [facility] ([place]) Comment on above: Performed By: #### C BC, ADIFF, ANEU, BMP, GFR ####[address] [address] Potassium [Moles/Vol] 3.6 mmol/L Normal 3.5-5.0 [facility] ([place]) Comment on above: Performed By: #### C BC, ADIFF, ANEU, BMP, GFR ####[address] [address] Sodium [Moles/Vol] 141 mmol/L Normal 136-145 [facility] ([place]) Comment on above: Performed By: #### C BC, ADIFF, ANEU, BMP, GFR ####[address] [address] Urea nitrogen [Mass/Vol] 11.0 mg/dL Normal 8.0-22.0 [facility] ([place] Comment on above: Performed By: #### C BC, ADIFF, ANEU, BMP, GFR ####[address] [address] Calcium [Mass/Vol] 8.4 mg/dL Normal 8.4-10.1 [facility] ([place]) Comment on above: Performed By: #### C BC, ADIFF, ANEU, BMP, GFR ####[address] [address] Chloride [Moles/Vol] 106 mmol/L Normal 98-110 [facility] ([place]) Comment on above: Performed By: #### C BC, ADIFF, ANEU, BMP, GFR ####[address] [address] CO2 [Moles/Vol] 25 mmol/L Normal 22-32 [facility] ([place]) Comment on above: Performed By: #### C BC, ADIFF, ANEU, BMP, GFR ####[address] [address] Creatinine [Mass/Vol] 0.73 mg/dL Normal 0.50-1.20 [facility] ([place]) Comment on above: Performed By: #### C BC, ADIFF, ANEU, BMP, GFR ####[place] [address] Electrolyte Balance 9.0 mEq/L Normal 4.0-15.0 [facility] ([place]) Comment on above: Performed By: #### C BC, ADIFF, ANEU, BMP, GFR ####[address] [address] Glucose [Mass/Vol] 230 mg/dL High 82-115 [facility] ([place]) Comment on above: Performed By: #### C BC, ADIFF, ANEU, BMP, GFR ####[address] [address] Potassium [Moles/Vol] 3.8 mmol/L Normal 3.5-5.0 [facility] ([place]) Comment on above: Performed By: #### C BC, ADIFF, ANEU, BMP, GFR ####[address] [address] Sodium [Moles/Vol] 140 mmol/L Normal 136-145 [facility] ([place]) Comment on above: Performed By: #### C BC, ADIFF, ANEU, BMP, GFR ####[place] [address] Urea nitrogen [Mass/Vol] 16.0 mg/dL Normal 8.0-22.0 [facility] ([place] Comment on above: Performed By: #### C BC, ADIFF, ANEU, BMP, GFR ####[place] [address] Urea nitrogen/Creatinine [Mass ratio] 21.9 ratio Normal 10.0-22.0 [facility] ([place] Comment on above: Performed By: #### C BC, ADIFF, ANEU, BMP, GFR ####[place] [address] CBCon 06-07-2019 Erythrocyte distribution width (RBC) [Ratio] 12.5 % Normal 11.5-15.5 [facility] ([place] Comment on above: Performed By: #### C BC, ADIFF, ANEU, CMP, GFR ####[place] [address] Hematocrit (Bld) [Volume fraction] 35.3 % Low 40.0-52.0 [facility] ([place] Comment on above: Performed By: #### C BC, ADIFF, ANEU, CMP, GFR ####[place] [address] Hemoglobin (Bld) [Mass/Vol] 12.0 G/dL Low 13.0-17.5 [facility] ([place] Comment on above: Performed By: #### C BC, ADIFF, ANEU, CMP, GFR ####[place] [address] MCH (RBC) [Entitic mass] 32.0 pg Normal 27.0-33.0 [facility] ([place]) Comment on above: Performed By: #### C BC, ADIFF, ANEU, CMP, GFR ####[id number] [place], [place] [address] MCHC (RBC) [Mass/Vol] 34.1 G/dL Normal 32.0-36.0 [facility] ([place] Comment on above: Performed By: #### C BC, ADIFF, ANEU, CMP, GFR ####[address] [address] MCV (RBC) [Entitic vol] 94.1 fL Normal 81.0-100.0 [facility] ([place]) Comment on above: Performed By: #### C BC, ADIFF, ANEU, CMP, GFR ####[address] [address] Platelet mean volume (Bld) [Entitic vol] 6.9 fL Normal 6.4-10.5 [facility] ([place]) Comment on above: Performed By: #### C BC, ADIFF, ANEU, CMP, GFR ####[address] [address] Platelets (Bld) [#/Vol] 109 10 3/mcL Low 150-450 [facility] ([place] Comment on above: Performed By: #### C BC, ADIFF, ANEU, CMP, GFR ####[address] [address] RBC (Bld) [#/Vol] 3.76 10 6/mcL Low 4.50-6.00 [facility] ([place]) Comment on above: Performed By: #### C BC, ADIFF, ANEU, CMP, GFR ####[place] [id number] WBC (Bld) [#/Vol] 5.00 10 3/mcL Normal 4.50-10.80 [facility] ([place]) Comment on above: Performed By: #### C BC, ADIFF, ANEU, CMP, GFR ####[place] [address] Erythrocyte distribution width (RBC) [Ratio] 13.6 % Normal 11.5-15.5 [facility] ([place] Comment on above: Performed By: #### C BC, ADIFF, ANEU, BMP, GFR ####[address] [address] Hematocrit (Bld) [Volume fraction] 28.1 % Low 34.0-46.0 [facility] ([place] Comment on above: Performed By: #### C BC, ADIFF, ANEU, BMP, GFR ####[place] [address] Hemoglobin (Bld) [Mass/Vol] 9.4 G/dL Low 12.0-16.0 [facility] ([place] Comment on above: Performed By: #### C BC, ADIFF, ANEU, BMP, GFR ####[place] [address] MCH (RBC) [Entitic mass] 32.4 pg Normal 27.0-33.0 [facility] ([place]) Comment on above: Performed By: #### C BC, ADIFF, ANEU, BMP, GFR ####[place] [address] MCHC (RBC) [Mass/Vol] 33.5 G/dL Normal 32.0-36.0 [facility] ([place]) Comment on above: Performed By: #### C BC, ADIFF, ANEU, BMP, GFR ####[place] [address] MCV (RBC) [Entitic vol] 96.7 fL Normal 80.0-99.0 [facility] ([place] Comment on above: Performed By: #### C BC, ADIFF, ANEU, BMP, GFR ####[place] [address] Platelet mean volume (Bld) [Entitic vol] 7.5 fL Normal 6.6-10.5 [facility] ([place]) Comment on above: Performed By: #### C BC, ADIFF, ANEU, BMP, GFR ####[place] [id number] Platelets (Bld) [#/Vol] 257 10 3/mcL Normal 150-450 [facility] ([place] Comment on above: Performed By: #### C BC, ADIFF, ANEU, BMP, GFR ####[place] [address] RBC (Bld) [#/Vol] 2.90 10 6/mcL Low 4.10-5.30 [facility] ([place]) Comment on above: Performed By: #### C BC, ADIFF, ANEU, BMP, GFR ####[address] [address] WBC (Bld) [#/Vol] 6.50 10 3/mcL Normal 4.50-10.80 [facility] ([place]) Comment on above: Performed By: #### C BC, ADIFF, ANEU, BMP, GFR ####[address] [address] Erythrocyte distribution width (RBC) [Ratio] 13.8 % Normal 11.5-15.5 [facility] ([place] Comment on above: Performed By: #### C BC, ADIFF, ANEU #### [place] [address] #### BMP, GFR #### [address] [address] Hematocrit (Bld) [Volume fraction] 27.4 % Low 34.0-46.0 [facility] ([place] Comment on above: Performed By: #### C BC, ADIFF, ANEU #### [place] [address] #### BMP, GFR #### [address] [address] Hemoglobin (Bld) [Mass/Vol] 9.4 G/dL Low 12.0-16.0 [facility] ([place]) Comment on above: Performed By: #### C BC, ADIFF, ANEU #### [address] [address] #### BMP, GFR #### [address] [address] MCH (RBC) [Entitic mass] 30.3 pg Normal 27.0-33.0 [facility] ([place] Comment on above: Performed By: #### C BC, ADIFF, ANEU #### [address] [address] #### BMP, GFR #### [address] [address] MCHC (RBC) [Mass/Vol] 34.4 G/dL Normal 32.0-36.0 [facility] ([place]) Comment on above: Performed By: #### C BC, ADIFF, ANEU #### [address] [address] #### BMP, GFR #### [address] [address] MCV (RBC) [Entitic vol] 88.2 fL Normal 80.0-99.0 [facility] ([place] Comment on above: Performed By: #### C BC, ADIFF, ANEU #### [place] [address] #### BMP, GFR #### [address] [address] Platelet mean volume (Bld) [Entitic vol] 8.1 fL Normal 6.6-10.5 [facility] ([place]) Comment on above: Performed By: #### C BC, ADIFF, ANEU #### [place] [address] #### BMP, GFR #### [address] [address] Platelets (Bld) [#/Vol] 188 10 3/mcL Normal 150-450 [facility] ([place] Comment on above: Performed By: #### C BC, ADIFF, ANEU #### [address] [address] #### BMP, GFR #### [address] [address] RBC (Bld) [#/Vol] 3.11 10 6/mcL Low 4.10-5.30 [facility] ([place]) Comment on above: Performed By: #### C BC, ADIFF, ANEU #### [place] [address] #### BMP, GFR #### [address] [address] WBC (Bld) [#/Vol] 6.70 10 3/mcL Normal 4.50-10.80 [facility] ([place]) Comment on above: Performed By: #### C BC, ADIFF, ANEU #### [address] [address] #### BMP, GFR #### [address] [address] CMPon 06-07-2019 Albumin/Globulin [Mass ratio] 0.8 {ratio} Low 0.9-1.6 [facility] ([place] Comment on above: Performed By: #### C BC, ADIFF, ANEU, CMP, GFR ####[place] [address] ALP [Catalytic activity/Vol] 47 U/L Normal 38-126 [facility] ([place] Comment on above: Performed By: #### C BC, ADIFF, ANEU, CMP, GFR ####[place] [address] Bili Total 0.5 mg/dL Normal 0.2-1.2 [facility] ([place] Comment on above: Performed By: #### C BC, ADIFF, ANEU, CMP, GFR ####[place] [address] Creatinine [Mass/Vol] 0.66 mg/dL Normal 0.60-1.40 [facility] ([place]) Comment on above: Performed By: #### C BC, ADIFF, ANEU, CMP, GFR ####[place] [address] Globulin (S) [Mass/Vol] 2.7 G/dL Normal 1.5-3.8 [facility] ([place] Comment on above: Performed By: #### C BC, ADIFF, ANEU, CMP, GFR ####[address] [address] Protein [Mass/Vol] 4.8 G/dL Low 6.0-8.5 [facility] ([place]) Comment on above: Performed By: #### C BC, ADIFF, ANEU, CMP, GFR ####[address] [address] Urea nitrogen/Creatinine [Mass ratio] 4.5 ratio Low 10.0-22.0 [facility] ([place] Comment on above: Performed By: #### C BC, ADIFF, ANEU, CMP, GFR ####[address] [address] Albumin [Mass/Vol] 2.1 G/dL Low 3.2-4.8 [facility] ([place]) Comment on above: Performed By: #### C BC, ADIFF, ANEU, CMP, GFR ####[address] [address] ALT [Catalytic activity/Vol] 16 U/L Normal 12-55 [facility] ([place] Comment on above: Performed By: #### C BC, ADIFF, ANEU, CMP, GFR ####[address] [address] AST [Catalytic activity/Vol] 11 U/L Normal 8-34 [facility] ([place] Comment on above: Performed By: #### C BC, ADIFF, ANEU, CMP, GFR ####[address] [address] Calcium [Mass/Vol] 7.8 mg/dL Low 8.4-10.1 [facility] ([place]) Comment on above: Performed By: #### C BC, ADIFF, ANEU, CMP, GFR ####[address] [address] Chloride [Moles/Vol] 113 mmol/L High 98-110 [facility] ([place]) Comment on above: Performed By: #### C BC, ADIFF, ANEU, CMP, GFR ####[address] [address] CO2 [Moles/Vol] 30 mmol/L Normal 22-32 [facility] ([place]) Comment on above: Performed By: #### C BC, ADIFF, ANEU, CMP, GFR ####[address] [address] Electrolyte Balance 5.0 mEq/L Normal 4.0-15.0 [facility] ([place]) Comment on above: Performed By: #### C BC, ADIFF, ANEU, CMP, GFR ####[address] [address] Glucose [Mass/Vol] 124 mg/dL High 70-110 [facility] ([place]) Comment on above: Performed By: #### C BC, ADIFF, ANEU, CMP, GFR ####[place] [address] Potassium [Moles/Vol] 3.7 mmol/L Normal 3.5-5.0 [facility] ([place]) Comment on above: Performed By: #### C BC, ADIFF, ANEU, CMP, GFR ####[place] [address] Sodium [Moles/Vol] 148 mmol/L High 136-145 [facility] ([place]) Comment on above: Performed By: #### C BC, ADIFF, ANEU, CMP, GFR ####[place] [address] Urea nitrogen [Mass/Vol] 3.0 mg/dL Low 8.0-22.0 [facility] ([place] Comment on above: Performed By: #### C BC, ADIFF, ANEU, CMP, GFR ####[address] [address] HHon 06-07-2019 Hematocrit (Bld) [Volume fraction] 27.4 % Low 34.0-46.0 [facility] ([place] Comment on above: Performed By: #### H H ####[address] [address] Hemoglobin (Bld) [Mass/Vol] 9.6 G/dL Low 12.0-16.0 [facility] ([place] Comment on above: Performed By: #### H H ####[address] [address] XR CHEST 1 VIEWon 06-07-2019 XR CHEST [...] AM Sign Date: 06/07/2019 7:43:21 AM Normal [facility] ([place]) .Auto Diffon 06-06-2019 Ammonia (P) [Mass/Vol] 0.70 10 3/mcL Normal 0.09-1.40 [facility] ([place] Comment on above: Performed By: #### C STEPHANIE KRISHNAMURTHY ANEU #### [place] [address] #### BMP, GFR #### [address] [address] Basophils (Bld) [#/Vol] 0.00 10 3/mcL Normal 0.00-0.27 [facility] ([place] Comment on above: Performed By: #### STEPHANIE JOHNSON ANEU #### [place] [address] #### BMP, GFR #### [address] [address] Basophils/100 WBC (Bld) 0.4 % Normal 0.0-2.5 [facility] ([place] Comment on above: Performed By: #### C STEPHANIE KRISHNAMURTHY, ANEU #### [place] [address] #### BMP, GFR #### [address] [address] Eosinophils (Bld) [#/Vol] 0.10 10 3/mcL Normal 0.00-0.65 [facility] ([place] Comment on above: Performed By: #### C STEPHANIE KRISHNAMURTHY, ANEU #### [place] [address] #### BMP, GFR #### [address] [address] Eosinophils/100 WBC (Bld) 0.8 % Normal 0.0-6.0 [facility] ([place]) Comment on above: Performed By: #### C BC, ADIFF, ANEU #### [address] [address] #### BMP, GFR #### [address] [address] Lymphocytes (Bld) [#/Vol] 0.70 10 3/mcL Low 0.90-4.32 [facility] ([place]) Comment on above: Performed By: #### C BC, ADIFF, ANEU #### [place] [address] #### BMP, GFR #### [address] [address] Lymphocytes/100 WBC (Bld) 9.2 % Low 20.0-40.0 [facility] ([place]) Comment on above: Performed By: #### C BC, ADIFF, ANEU #### [place] [address] #### BMP, GFR #### [address] [address] Monocytes/100 WBC (Bld) 9.6 % Normal 2.0-13.0 [facility] ([place]) Comment on above: Performed By: #### C BC, ADIFF, ANEU #### [place] [address] #### BMP, GFR #### [address] [address] Neutrophils/100 WBC (Bld) 80.0 % High 50.0-75.0 [facility] ([place]) Comment on above: Performed By: #### C BC, ADIFF, ANEU #### [address] [address] #### BMP, GFR #### [address] [address] .GFRon 09-23-2019 GFR Non- >60 Normal [facility] ([place] Comment on above: Result Comment: GFR Population [...] Performed By: #### C BCSTEPHANIE, ANEU #### [address] [address] #### BMP, GFR #### [place] [address] GFR >60 Normal [facility] ([place]) Comment on above: Result Comment: GFR Population [...] By: #### C BC, ADIFF, ANEU #### [address] [address] #### BMP, GFR #### [address] [address] .NEUABSon 06-06-2019 Neutrophils (Bld) [#/Vol] 6.20 10 3/mcL Normal 2.25-8.10 [facility] ([place] Comment on above: Performed By: #### C BC, ADIFF, ANEU #### [address] [address] #### BMP, GFR #### [address] [address] BMPon 06-06-2019 Calcium [Mass/Vol] 8.0 mg/dL Low 8.4-10.1 [facility] ([place]) Comment on above: Performed By: #### C BC, ADIFF, ANEU #### [address] [address] #### BMP, GFR #### [address] [address] Chloride [Moles/Vol] 104 mmol/L Normal 98-110 [facility] ([place]) Comment on above: Performed By: #### C BC, ADIFF, ANEU #### [place] [address] #### BMP, GFR #### [address] [address] CO2 [Moles/Vol] 26 mmol/L Normal 22-32 [facility] ([place]) Comment on above: Performed By: #### C BC, ADIFF, ANEU #### [address] [address] #### BMP, GFR #### [address] [address] Creatinine [Mass/Vol] 0.66 mg/dL Normal 0.50-1.20 [facility] ([place] Comment on above: Performed By: #### C BC, ADIFF, ANEU #### [place] [address] #### BMP, GFR #### [address] [address] Electrolyte Balance 10.0 mEq/L Normal 4.0-15.0 [facility] ([place]) Comment on above: Performed By: #### C BC, ADIFF, ANEU #### [address] [address] #### BMP, GFR #### [address] [address] Glucose [Mass/Vol] 104 mg/dL Normal 82-115 [facility] ([place]) Comment on above: Performed By: #### C BC, ADIFF, ANEU #### [address] [address] #### BMP, GFR #### [address] [address] Potassium [Moles/Vol] 3.2 mmol/L Low 3.5-5.0 [facility] ([place] Comment on above: Performed By: #### C BC, ADIFF, ANEU #### [address] [address] #### BMP, GFR #### [address] [address] Sodium [Moles/Vol] 140 mmol/L Normal 136-145 [facility] ([place]) Comment on above: Performed By: #### C BC, ADIFF, ANEU #### [address] [address] #### BMP, GFR #### [address] [address] Urea nitrogen [Mass/Vol] 10.0 mg/dL Normal 8.0-22.0 [facility] ([place] Comment on above: Performed By: #### C BC, ADIFF, ANEU #### [address] [address] #### BMP, GFR #### [address] [address] Urea nitrogen/Creatinine [Mass ratio] 15.2 ratio Normal 10.0-22.0 [facility] ([place] Comment on above: Performed By: #### C BC, ADIFF, ANEU #### [address] [address] #### BMP, GFR #### [address] [address] CBCon 06-06-2019 Erythrocyte distribution width (RBC) [Ratio] 13.6 % Normal 11.5-15.5 [facility] ([place] Comment on above: Performed By: #### C STEPHANIE KRISHNAMURTHY, ANEU #### [place] [address] #### BMP, GFR #### [address] [address] Hematocrit (Bld) [Volume fraction] 27.0 % Low 34.0-46.0 [facility] ([place] Comment on above: Performed By: #### C STEPHANIE KRISHNAMURTHY, ANEU #### [place] [address] #### BMP, GFR #### [address] [address] Hemoglobin (Bld) [Mass/Vol] 9.2 G/dL Low 12.0-16.0 [facility] ([place] Comment on above: Performed By: #### C STEPHANIE KRISHNAMURTHY, ANEU #### [place] [address] #### BMP, GFR #### [address] [address] MCH (RBC) [Entitic mass] 30.0 pg Normal 27.0-33.0 [facility] ([place] Comment on above: Performed By: #### C STEPHANIE KRISHNAMURTHY, ANEU #### [place] [address] #### BMP, GFR #### [address] [address] MCHC (RBC) [Mass/Vol] 34.1 G/dL Normal 32.0-36.0 [facility] ([place] Comment on above: Performed By: #### C STEPHANIE KRISHNAMURTHY, ANEU #### [place] [address] #### BMP, GFR #### [address] [address] MCV (RBC) [Entitic vol] 88.0 fL Normal 80.0-99.0 [facility] ([place] Comment on above: Performed By: #### C BC, ADIFF, ANEU #### [address] [address] #### BMP, GFR #### [address] [address] Platelet mean volume (Bld) [Entitic vol] 8.2 fL Normal 6.6-10.5 [facility] ([place]) Comment on above: Performed By: #### C BC, ADIFF, ANEU #### [address] [address] #### BMP, GFR #### [address] [address] Platelets (Bld) [#/Vol] 155 10 3/mcL Normal 150-450 [facility] ([place] Comment on above: Performed By: #### C BC, ADIFF, ANEU #### [place] [address] #### BMP, GFR #### [address] [address] RBC (Bld) [#/Vol] 3.07 10 6/mcL Low 4.10-5.30 [facility] ([place]) Comment on above: Performed By: #### C BC, ADIFF, ANEU #### [address] [address] #### BMP, GFR #### [address] [address] WBC (Bld) [#/Vol] 7.70 10 3/mcL Normal 4.50-10.80 [facility] ([place]) Comment on above: Performed By: #### C BC, ADIFF, ANEU #### [address] [address] #### BMP, GFR #### [address] [address] XR CHEST 1 VIEWon 06-06-2019 XR CHEST [...] AM Sign Date: 06/06/2019 6:40:06 AM Normal [facility] ([place] .Auto Diffon 06-05-2019 Ammonia (P) [Mass/Vol] 1.20 10 3/mcL Normal 0.09-1.40 [facility] ([place] Comment on above: Performed By: #### C STEPHANIE KRISHNAMURTHY ANEU #### [place] [address] #### BMP, GFR #### [address] [address] Basophils (Bld) [#/Vol] 0.00 10 3/mcL Normal 0.00-0.27 [facility] ([place] Comment on above: Performed By: #### C STEPHANIE KRISHNAMURTHY ANEU #### [place] [address] #### BMP, GFR #### [address] [address] Basophils/100 WBC (Bld) 0.4 % Normal 0.0-2.5 [facility] ([place] Comment on above: Performed By: #### C BCSTEPHANIE, ANEU #### [place] [address] #### BMP, GFR #### [address] [address] Eosinophils (Bld) [#/Vol] 0.10 10 3/mcL Normal 0.00-0.65 [facility] ([place] Comment on above: Performed By: #### C BCSTEPHANIE, ANEU #### [address] [address] #### BMP, GFR #### [address] [address] Eosinophils/100 WBC (Bld) 0.6 % Normal 0.0-6.0 [facility] ([place]) Comment on above: Performed By: #### C BC, ADIFF, ANEU #### [address] [address] #### BMP, GFR #### [address] [address] Lymphocytes (Bld) [#/Vol] 1.10 10 3/mcL Normal 0.90-4.32 [facility] ([place] Comment on above: Performed By: #### C BC, ADIFF, ANEU #### [address] [address] #### BMP, GFR #### [address] [address] Lymphocytes/100 WBC (Bld) 9.5 % Low 20.0-40.0 [facility] ([place] Comment on above: Performed By: #### C BC, ADIFF, ANEU #### [address] [address] #### BMP, GFR #### [address] [address] Monocytes/100 WBC (Bld) 9.9 % Normal 2.0-13.0 [facility] ([place] Comment on above: Performed By: #### C BC, ADIFF, ANEU #### [address] [address] #### BMP, GFR #### [address] [address] Neutrophils/100 WBC (Bld) 79.6 % High 50.0-75.0 [facility] ([place] Comment on above: Performed By: #### C BC, ADIFF, ANEU #### [place] [id number] #### BMP, GFR #### [address] [address] .GFRon 06-05-2019 GFR >60 Normal [facility] ([place] Comment on above: Result Comment: GFR Population [...] Performed By: #### C BCSTEPHANIE, ANEU #### [address] [address] #### BMP, GFR #### [address] [address] GFR Non- >60 Normal [facility] ([place] Comment on above: Result Comment: GFR Population [...] By: #### C BC, ADIFF, ANEU #### [address] [address] #### BMP, GFR #### [address] [address] .Morphon 06-05-2019 Platelets (Bld) [#/Vol] Slt Decreased Normal [facility] ([place] Comment on above: Performed By: #### C BC, ADIFF, ANEU #### [place] [address] #### BMP, GFR #### [address] [address] RBC morphology finding Nom (Bld) Normal Normal [facility] ([place] Comment on above: Performed By: #### C BC, ADIFF, ANEU #### [place] [address] #### BMP, GFR #### [address] [address] .NEUABSon 06-05-2019 Neutrophils (Bld) [#/Vol] 9.30 10 3/mcL High 2.25-8.10 [facility] ([place] Comment on above: Performed By: #### C BCBRYANIFF, ANEU #### [place] [address] #### BMP, GFR #### [address] [address] BMPon 06-05-2019 Calcium [Mass/Vol] 8.2 mg/dL Low 8.4-10.1 [facility] ([place]) Comment on above: Performed By: #### C BC ADIFF, ANEU #### [place] [address] #### BMP, GFR #### [place] [address] CO2 [Moles/Vol] 23 mmol/L Normal 22-32 [facility] ([place]) Comment on above: Performed By: #### C BC, ADIFF, ANEU #### [place] [address] #### BMP, GFR #### [place] [id number] Creatinine [Mass/Vol] 0.65 mg/dL Normal 0.50-1.20 [facility] ([place] Comment on above: Performed By: #### C BC, ADIFF, ANEU #### [address] [address] #### BMP, GFR #### [address] [address] Electrolyte Balance 11.0 mEq/L Normal 4.0-15.0 [facility] ([place]) Comment on above: Performed By: #### C BC, ADIFF, ANEU #### [address] [address] #### BMP, GFR #### [address] [address] Glucose [Mass/Vol] 114 mg/dL Normal 82-115 [facility] ([place]) Comment on above: Performed By: #### C BC, ADIFF, ANEU #### [address] [address] #### BMP, GFR #### [address] [address] Potassium [Moles/Vol] 4.2 mmol/L Normal 3.5-5.0 [facility] ([place] Comment on above: Performed By: #### C BC, ADIFF, ANEU #### [address] [address] #### BMP, GFR #### [address] [address] Urea nitrogen [Mass/Vol] 9.0 mg/dL Normal 8.0-22.0 [facility] ([place] Comment on above: Performed By: #### C BC, ADIFF, ANEU #### [address] [address] #### BMP, GFR #### [address] [address] Urea nitrogen/Creatinine [Mass ratio] 13.8 ratio Normal 10.0-22.0 [facility] ([place] Comment on above: Performed By: #### C BC, ADIFF, ANEU #### [address] [address] #### BMP, GFR #### [address] [address] Chloride [Moles/Vol] 107 mmol/L Normal 98-110 [facility] ([place] Comment on above: Performed By: #### C BC, ADIFF, ANEU #### [address] [address] #### BMP, GFR #### [address] [address] Sodium [Moles/Vol] 141 mmol/L Normal 136-145 [facility] ([place]) Comment on above: Performed By: #### C BC, ADIFF, ANEU #### [address] [address] #### BMP, GFR #### [address] [address] CBCon 06-05-2019 Platelet mean volume (Bld) [Entitic vol] 9.1 fL Normal 6.6-10.5 [facility] ([place]) Comment on above: Performed By: #### C RAGHU, ADIFF, ANEU #### [address] [address] #### BMP, GFR #### [address] [address] Platelets (Bld) [#/Vol] 143 10 3/mcL Low 150-450 [facility] ([place] Comment on above: Performed By: #### C STEPHANIE KRISHNAMURTHY, ANEU #### [address] [address] #### BMP, GFR #### [address] [address] Erythrocyte distribution width (RBC) [Ratio] 14.0 % Normal 11.5-15.5 [facility] ([place] Comment on above: Performed By: #### C BC, ADIFF, ANEU #### [address] [address] #### BMP, GFR #### [address] [address] Hematocrit (Bld) [Volume fraction] 30.7 % Low 34.0-46.0 [facility] ([place] Comment on above: Performed By: #### C BC, ADIFF, ANEU #### [place] [address] #### BMP, GFR #### [address] [address] Hemoglobin (Bld) [Mass/Vol] 10.7 G/dL Low 12.0-16.0 [facility] ([place] Comment on above: Performed By: #### C BC, ADIFF, ANEU #### [place] [address] #### BMP, GFR #### [place] [address] MCH (RBC) [Entitic mass] 30.4 pg Normal 27.0-33.0 [facility] ([place] Comment on above: Performed By: #### C BC, ADIFF, ANEU #### [place] [address] #### BMP, GFR #### [address] [address] MCHC (RBC) [Mass/Vol] 34.8 G/dL Normal 32.0-36.0 [facility] [place] Comment on above: Performed By: #### C BC, ADIFF, ANEU #### [place] [address] #### BMP, GFR #### [place] [address] MCV (RBC) [Entitic vol] 87.6 fL Normal 80.0-99.0 [facility] ([place] Comment on above: Performed By: #### C BC, ADIFF, ANEU #### [place] [address] #### BMP, GFR #### [address] [address] RBC (Bld) [#/Vol] 3.50 10 6/mcL Low 4.10-5.30 [facility] ([place] Comment on above: Performed By: #### C BC, ADIFF, ANEU #### [place] [address] [place], [place] [address] #### BMP, GFR #### [address] [address] WBC (Bld) [#/Vol] 11.60 10 3/mcL High 4.50-10.80 [facility] ([place] Comment on above: Performed By: #### C BC, ADIFF, ANEU #### [place] [address] [place], [place] [address] #### BMP, GFR #### [place] [address] [place] [address] XR CHEST 1 VIEWon 06-05-2019 XR CHEST [...] AM Sign Date: 06/05/2019 7:45:20 AM Normal [facility] [place] XR CHEST 1 VIEW ORIGINAL PORTABLE UPRIGHT [...] PM Sign Date: 06/04/2019 11:53:30 PM Normal [facility] ([place] .Auto Diffon 06-04-2019 Ammonia (P) [Mass/Vol] 0.90 10 3/mcL Normal 0.09-1.40 [facility] ([place] Comment on above: Performed By: #### C BC, ADIFF, ANEU #### [place] [address] #### BMP, GFR #### [address] [address] Basophils (Bld) [#/Vol] 0.00 10 3/mcL Normal 0.00-0.27 [facility] ([place] Comment on above: Performed By: #### C BC, ADIFF, ANEU #### [place] [address] #### BMP, GFR #### [address] [address] Basophils/100 WBC (Bld) 0.3 % Normal 0.0-2.5 [facility] ([place] Comment on above: Performed By: #### C BC, ADIFF, ANEU #### [place] [address] #### BMP, GFR #### [address] [address] Eosinophils (Bld) [#/Vol] 0.00 10 3/mcL Normal 0.00-0.65 [facility] ([place] Comment on above: Performed By: #### C BC, ADIFF, ANEU #### [place] [address] #### BMP, GFR #### [address] [address] Eosinophils/100 WBC (Bld) 0.1 % Normal 0.0-6.0 [facility] ([place] Comment on above: Performed By: #### C BC, ADIFF, ANEU #### [address] [address] #### BMP, GFR #### [address] [address] Lymphocytes (Bld) [#/Vol] 0.90 10 3/mcL Normal 0.90-4.32 [facility] ([place]) Comment on above: Performed By: #### C BC, ADIFF, ANEU #### [address] [address] #### BMP, GFR #### [address] [address] Lymphocytes/100 WBC (Bld) 10.3 % Low 20.0-40.0 [facility] ([place] Comment on above: Performed By: #### C BC, ADIFF, ANEU #### [place] [address] #### BMP, GFR #### [address] [address] Monocytes/100 WBC (Bld) 9.5 % Normal 2.0-13.0 [facility]ly [facility] ([place]) Comment on above: Performed By: #### C BC, ADIFF, ANEU #### [place] [address] #### BMP, GFR #### [address] [address] Neutrophils/100 WBC (Bld) 79.8 % High 50.0-75.0 [facility]ly [facility] ([place]) Comment on above: Performed By: #### C BC, ADIFF, ANEU #### [address] [address] #### BMP, GFR #### [address] [address] .GFRon 06-04-2019 GFR >60 Normal [facility] ([place]) Comment on above: Result Comment: GFR Population [...] By: #### C BC, ADIFF, ANEU #### [address] [address] #### BMP, GFR #### [address] [address] GFR Non- >60 Normal [facility] ([place]) Comment on above: Result Comment: GFR Population [...] By: #### C BC, ADIFF, ANEU #### [address] [address] #### BMP, GFR #### [address] [address] .NEUABSon 06-04-2019 Neutrophils (Bld) [#/Vol] 7.20 10 3/mcL Normal 2.25-8.10 [facility] ([place]) Comment on above: Performed By: #### C BC, ADIFF, ANEU #### [address] [address] #### BMP, GFR #### [address] [address] BMPon 06-04-2019 Calcium [Mass/Vol] 8.8 mg/dL Normal 8.4-10.1 [facility] ([place]) Comment on above: Performed By: #### C BC, ADIFF, ANEU #### [place] [address] #### BMP, GFR #### [address] [address] Chloride [Moles/Vol] 109 mmol/L Normal 98-110 [facility] ([place]) Comment on above: Performed By: #### C BC, ADIFF, ANEU #### [place] [address] #### BMP, GFR #### [place] [id number] CO2 [Moles/Vol] 25 mmol/L Normal 22-32 [facility] ([place]) Comment on above: Performed By: #### C BC, ADIFF, ANEU #### [place] [address] #### BMP, GFR #### [place] [address] Creatinine [Mass/Vol] 0.82 mg/dL Normal 0.50-1.20 [facility] ([place]) Comment on above: Performed By: #### C BC, ADIFF, ANEU #### [place] [address] #### BMP, GFR #### [address] [address] Electrolyte Balance 8.0 mEq/L Normal 4.0-15.0 [facility]ly [facility] ([place]) Comment on above: Performed By: #### C BC, ADIFF, ANEU #### [place] [address] #### BMP, GFR #### [place] [address] Glucose [Mass/Vol] 132 mg/dL High 82-115 [facility] ([place]) Comment on above: Performed By: #### C BC, ADIFF, ANEU #### [address] [address] #### BMP, GFR #### [address] [address] Potassium [Moles/Vol] 4.3 mmol/L Normal 3.5-5.0 [facility] ([place]) Comment on above: Performed By: #### C BC, ADIFF, ANEU #### [address] [address] #### BMP, GFR #### [address] [address] Sodium [Moles/Vol] 142 mmol/L Normal 136-145 [facility] ([place]) Comment on above: Performed By: #### C BC, ADIFF, ANEU #### [address] [address] #### BMP, GFR #### [address] [address] Urea nitrogen [Mass/Vol] 12.0 mg/dL Normal 8.0-22.0 [facility] ([place]) Comment on above: Performed By: #### C BC, ADIFF, ANEU #### [address] [address] #### BMP, GFR #### [address] [address] Urea nitrogen/Creatinine [Mass ratio] 14.6 ratio Normal 10.0-22.0 [facility] ([place]) Comment on above: Performed By: #### C BC, ADIFF, ANEU #### [address] [address] #### BMP, GFR #### [address] [address] CBCon 06-04-2019 Erythrocyte distribution width (RBC) [Ratio] 14.0 % Normal 11.5-15.5 [facility] ([place]) Comment on above: Performed By: #### C BC, ADIFF, ANEU #### [address] [address] #### BMP, GFR #### [address] [address] Hematocrit (Bld) [Volume fraction] 38.5 % Normal 34.0-46.0 [facility] ([place]) Comment on above: Performed By: #### C BC, ADIFF, ANEU #### [place] [address] #### BMP, GFR #### [address] [address] Hemoglobin (Bld) [Mass/Vol] 13.0 G/dL Normal 12.0-16.0 [facility] ([place]) Comment on above: Performed By: #### C RAGHU, ADIFF, ANEU #### [place] [address] #### BMP, GFR #### [address] [address] MCH (RBC) [Entitic mass] 30.1 pg Normal 27.0-33.0 [facility] ([place]) Comment on above: Performed By: #### C RAGHU, ADIFF, ANEU #### [place] [address] #### BMP, GFR #### [address] [address] MCHC (RBC) [Mass/Vol] 33.7 G/dL Normal 32.0-36.0 [facility] ([place]) Comment on above: Performed By: #### C BC, ADIFF, ANEU #### [place] [address] #### BMP, GFR #### [place] [phone] MCV (RBC) [Entitic vol] 89.5 fL Normal 80.0-99.0 [facility] ([place]) Comment on above: Performed By: #### C BC, ADIFF, ANEU #### [place] [address]97 #### BMP, GFR #### [address] [address] Platelet mean volume (Bld) [Entitic vol] 7.6 fL Normal 6.6-10.5 [facility] ([place]) Comment on above: Performed By: #### C BC, ADIFF, ANEU #### [address] [address] #### BMP, GFR #### [address] [address] Platelets (Bld) [#/Vol] 197 10 3/mcL Normal 150-450 [facility] ([place]) Comment on above: Performed By: #### C BC, ADIFF, ANEU #### [place] [address] #### BMP, GFR #### [address] [address] RBC (Bld) [#/Vol] 4.31 10 6/mcL Normal 4.10-5.30 [facility] ([place]) Comment on above: Performed By: #### C BC, ADIFF, ANEU #### [place] [address] #### BMP, GFR #### [address] [address] WBC (Bld) [#/Vol] 9.00 10 3/mcL Normal 4.50-10.80 [facility] ([place]) Comment on above: Performed By: #### C BC, ADIFF, ANEU #### [place] [address] #### BMP, GFR #### [address] [address] [address] ANKLE W/O CONTRAST RIGHTo n 06-04-2019 [...] PM Sign Date: 06/04/2019 12:03:00 AM Normal [facility] ([place]) CT WRIST W/O CONTRAST RIGHTo n 06-04-2019 [...] AM Sign Date: 06/04/2019 12:04:55 AM Normal [facility] ([place]) PROon 06-04-2019 INR Coag (PPP) [Relative time] 1.0 {INR} Normal [facility] ([place]) Comment on above: Result Comment: The [employer] (CHEST, 1992, 102:312S-25S) recommended therapeutic range for oral anticoagulant therapy is: LOW RISK: Prophylaxis of venous thrombosis INR: 2.0-3.0 Treatment of pulmonary embolism 2.0-3.0 Prevention of systemic embolism 2.0-3.0 HIGH RISK: Mechanical prosthetic valves 2.5-3.5 Performed By: #### C STEPHANIE KRISHNAMURTHY ANEU #### [place] [address] #### BMP, GFR #### [place] [address] PT Coag (PPP) [Time] 12.0 s Normal 9.0-14.6 [facility] ([place]) Comment on above: Result Comment: Effe ctive 03/28/08, Protime results may be affected by some antibiotics (i.e. Ciprofloxacin, Azithromycin, Bactrim) which may potentiate the action of oral anticoagulants, with further increases in Protime/INR. Performed By: #### C STEPHANIE KRISHNAMURTHY ANEU #### [place] [address] #### BMP, GFR #### [place] [address] TABOon 06-04-2019 ABO/Rh Interp Negative [facility] ([place]) Comment on above: Performed By: #### C STEPHANIE KRISHNAMURTHY ANEU #### [place] [address] #### BMP, GFR #### [place] [address] TABSon 06-04-2019 Antibody Screen Tango Negative Normal [facility] ([place]) Comment on above: Performed By: #### C BC, ADIFF, ANEU #### [facility] [address] [place], [place] [address] #### BMP, GFR #### [place] [address] [place] [address] XR CHEST 1 VIEWon 06-04-2019 XR CHEST [...] 5:25:08 AM Sign Date: 06/04/2019 5:25:45 AM [facility] ([place]) XR FLUORO < 1HR TECH TIMEon 06-04-2019 XR FLUORO < 1HR TECH TIME ORIGINAL Intraoperative fluoroscopy and image intensifier views of the right ankle Clinical Statement: rt ankle fx, internal fixation Comparison: Radiographs 06/03/2019 FINDINGS: Technical Details: Tech Time - < 1hr\X0D0A\1120-2p total for both ; C-Arm # - 7; Total Dose - .85mGy; Images - 6; Clinical Counselor - nmk; History - rt ankle fx, [...] 3:29:23 PM Sign Date: 06/04/2019 3:30:03 PM [facility] ([place]) XR FLUORO 1-2 HRS TECH TIMEo n 06-04-2019 XR FLUORO 1-2 HRS TECH TIME ORIGINAL Intraoperative fluoroscopy and image intensifier views of the right wrist Clinical Statement: rt wrist fx, internal fixation Comparison: 06/03/2019 FINDINGS: Technical Details: Tech Time - 1120-2p total for both exams; C-Arm # - 7; Total Dose - 1.71mGy; Images - 5; Clinical Counselor - nmk; History - rt wrist fx; [...] PM Sign Date: 06/04/2019 3:36:44 PM Normal [facility] ([place]) XR HAND MINIMUM 3 VIEWS LEFT on [...] AM Sign Date: 06/04/2019 9:53:38 AM Normal [facility] ([place]) .Auto Diffon 06-03-2019 Ammonia (P) [Mass/Vol] 0.60 10 3/mcL Normal 0.15-1.00 [facility] ([place]) Comment on above: Performed By: #### C BC, ADIFF, ANEU #### [facility] [address] [place], [place] [address] #### BMP, GFR #### [address] [address] Basophils (Bld) [#/Vol] 0.00 10 3/mcL Normal 0.00-0.19 [facility] ([place]) Comment on above: Performed By: #### C BC, ADIFF, ANEU #### [address] [address] #### BMP, GFR #### [address] [address] Basophils/100 WBC (Bld) 0.4 % Normal 0.0-2.5 [facility] ([place]) Comment on above: Performed By: #### C BC, ADIFF, ANEU #### [address] [address] #### BMP, GFR #### [address] [address] Eosinophils (Bld) [#/Vol] 0.10 10 3/mcL Normal 0.00-0.40 [facility] ([place]) Comment on above: Performed By: #### C BC, ADIFF, ANEU #### [place] [address] #### BMP, GFR #### [address] [address] Eosinophils/100 WBC (Bld) 1.0 % Normal 0.0-7.0 [facility] ([place]) Comment on above: Performed By: #### C BC, ADIFF, ANEU #### [address] [address] #### BMP, GFR #### [address] [address] Lymphocytes (Bld) [#/Vol] 1.20 10 3/mcL Normal 0.77-3.85 [facility] ([place]) Comment on above: Performed By: #### C BC, ADIFF, ANEU #### [address] [address] #### BMP, GFR #### [address] [address] Lymphocytes/100 WBC (Bld) 12.6 % Normal 10.0-50.0 [facility] ([place]) Comment on above: Performed By: #### C BC, ADIFF, ANEU #### [address] [address] #### BMP, GFR #### [facility] [address] [place] [address] Monocytes/100 WBC (Bld) 6.3 % Normal 1.7-13.0 [facility] ([place]) Comment on above: Performed By: #### C BC, ADIFF, ANEU #### [address] [address] #### BMP, GFR #### [facility] [address] [place] [address] Neutrophils/100 WBC (Bld) 79.7 % Normal 37.0-80.0 [facility] ([place]) Comment on above: Performed By: #### C BC, ADIFF, ANEU #### [address] [address] #### BMP, GFR #### [address] [address] .GFRon 06-03-2019 GFR 78 ml/min/1.73sqm Normal [facility] ([place]) Comment on above: Result Comment: GFR [...] By: #### C BC, ADIFF, ANEU #### [address] [address] #### BMP, GFR #### [address] [address] GFR Non- 64 ml/min/1.73sqm Normal [facility] ([place]) Comment on above: Result Comment: GFR [...] Performed By: #### C BCSTEPHANIE, ANEU #### [place] [address] #### BMP, GFR #### [address] [address] .NEUABSon 06-03-2019 Neutrophils (Bld) [#/Vol] 7.90 10 3/mcL High 2.85-6.16 [facility] ([place]) Comment on above: Performed By: #### C STEPHANIE KRISHNAMURTHY, ANEU #### [place] [id number] #### BMP, GFR #### [address] [address] BMPon 06-03-2019 Calcium [Mass/Vol] 9.2 mg/dL Normal 8.4-10.2 [facility] ([place]) Comment on above: Performed By: #### STEPHANIE JOHNSON, ANEU #### [place] [id number] #### BMP, GFR #### [address] [address] Chloride [Moles/Vol] 104 mmol/L Normal 98-107 [facility] ([place]) Comment on above: Performed By: #### Lio BC ADIFF, ANEU #### [address] [address] #### BMP, GFR #### [address] [address] CO2 [Moles/Vol] 30 mmol/L Normal 23-31 [facility] ([place]) Comment on above: Performed By: #### C BC, ADIFF, ANEU #### [address] [address] #### BMP, GFR #### [address] [address] Creatinine [Mass/Vol] 0.85 mg/dL Normal 0.55-1.02 [facility] ([place]) Comment on above: Performed By: #### C BC, ADIFF, ANEU #### [address] [address] #### BMP, GFR #### [address] [address] Electrolyte Balance 9.0 mEq/L Normal [facility] ([place]) Comment on above: Performed By: #### C BC, ADIFF, ANEU #### [address] [address] #### BMP, GFR #### [address] [address] Glucose [Mass/Vol] 135 mg/dL High 83-110 [facility] ([place]) Comment on above: Performed By: #### C BC, ADIFF, ANEU #### [address] [address] #### BMP, GFR #### [address] [address] Potassium [Moles/Vol] 4.1 mmol/L Normal 3.5-5.1 [facility] ([place]) Comment on above: Performed By: #### C BC, ADIFF, ANEU #### [address] [address] #### BMP, GFR #### [address] [address] Sodium [Moles/Vol] 143 mmol/L Normal 136-145 [facility] ([place]) Comment on above: Performed By: #### C BC, ADIFF, ANEU #### [address] [address] #### BMP, GFR #### [address] [address] Urea nitrogen [Mass/Vol] 14 mg/dL Normal 7-18 [facility] ([place]) Comment on above: Performed By: #### C BC, ADIFF, ANEU #### [address] [address] #### BMP, GFR #### [address] [address] Urea nitrogen/Creatinine [Mass ratio] 16 ratio Normal 7-27 [facility] ([place]) Comment on above: Performed By: #### C BC, ADIFF, ANEU #### [address] [address] #### BMP, GFR #### [address] [address] CBCon 06-03-2019 Erythrocyte distribution width (RBC) [Ratio] 14.3 % Normal 11.5-14.5 [facility] ([place]) Comment on above: Performed By: #### C BC, ADIFF, ANEU #### [address] [address] #### BMP, GFR #### [address] [address] Hematocrit (Bld) [Volume fraction] 38.5 % Normal 37.0-47.0 [facility] ([place]) Comment on above: Performed By: #### C BC, ADIFF, ANEU #### [address] [address] #### BMP, GFR #### [address] [address] Hemoglobin (Bld) [Mass/Vol] 13.0 G/dL Normal 12.0-16.0 [facility] ([place]) Comment on above: Performed By: #### C BC, ADIFF, ANEU #### [address] [address] #### BMP, GFR #### [address] [address] MCH (RBC) [Entitic mass] 30.0 pg Normal 27.0-31.2 [facility] ([place]) Comment on above: Performed By: #### C STEPHANIE KRISHNAMURTHY, ANEU #### [address] [address] #### BMP, GFR #### [address] [address] MCHC (RBC) [Mass/Vol] 33.8 G/dL Normal 33.0-37.0 [facility] ([place]) Comment on above: Performed By: #### C STEPHANIE KRISHNAMURTHY, ANEU #### [place] [address] #### BMP, GFR #### [place] [address] MCV (RBC) [Entitic vol] 88.6 fL Normal 80.0-94.0 [facility] ([place]) Comment on above: Performed By: #### C STEPHANIE KRISHNAMURTHY, ANEU #### [place] [address] #### BMP, GFR #### [address] [address] Platelet mean volume (Bld) [Entitic vol] 8.1 fL Normal 7.4-10.4 [facility] ([place]) Comment on above: Performed By: #### C STEPHANIE KRISHNAMURTHY, ANEU #### [place] [address] #### BMP, GFR #### [address] [address] Platelets (Bld) [#/Vol] 221 10 3/mcL Normal 130-400 [facility] ([place]) Comment on above: Performed By: #### STEPHANIE JOHNSON, ANEU #### [place] [address] #### BMP, GFR #### [place] [phone] RBC (Bld) [#/Vol] 4.35 10 6/mcL Normal 4.20-5.40 [facility] ([place]) Comment on above: Performed By: #### C BC, ADIFF, ANEU #### [place] [address] [place], [place] [address] #### BMP, GFR #### [facility] [address] [place] [address] WBC (Bld) [#/Vol] 9.90 10 3/mcL Normal 4.60-10.80 [facility] ([place]) Comment on above: Performed By: #### C BC, ADIFF, ANEU #### [place] [address] [place], [place] [address] #### BMP, GFR #### [place] [address] [place] [address] [address] ABD/PELVIS W/ IV CONTRAST ONLYon 06-03-2019 [...] PM Sign Date: 06/03/2019 4:57:41 PM Normal [facility] ([place] HEAD OR BRAIN W/O CONTRAS Ton [...] PM Sign Date: 06/03/2019 4:10:32 PM Normal [facility] [place] SPINE CERVICAL W/O CONTRA STon 06-03-2019 [...] PM Sign Date: 06/03/2019 4:35:12 PM Normal [facility] ([place] CT THORAX W/ CONTRASTon 05-16 CT THORAX [...] PM Sign Date: 06/03/2019 4:53:52 PM Normal [facility] ([place]) XR ANKLE AND FOOT 6 VIEWS [facility] 06-03-2019 XR ANKLE AND FOOT 6 [...] PM Sign Date: 06/03/2019 3:45:45 PM Normal [facility] ([place]) XR ANKLE MINIMUM 3 VIEWS RIG HTon [...] PM Sign Date: 06/03/2019 7:11:45 PM Normal [facility] ([place]) XR CHEST 1 VIEWon 06-03-2019 XR CHEST [...] PM Sign Date: 06/03/2019 6:20:15 PM Normal [facility] ([place]) XR CHEST 1 VIEW ORIGINAL XR CHEST [...] PM Sign Date: 06/03/2019 3:47:37 PM Normal [facility] ([place]) XR FOREARM 2 VIEWS RIGHTon 0 06-03-2019 [...] PM Sign Date: 06/03/2019 7:13:59 PM Normal [facility] ([place]) XR KNEE THREE VIEWS RIGHTon 06-03-2019 XR [...] PM Sign Date: 06/03/2019 7:12:24 PM Normal [facility] ([place]) XR PELVIS 1 OR 2 VIEWSon XR [...] PM Sign Date: 06/03/2019 3:58:51 PM Normal [facility] ([place]) XR WRIST TWO VIEWS RIGHTon 0 06-03-2019 [...] PM Sign Date: 06/03/2019 3:56:05 PM Normal [facility] ([place]) C-REACTIVE PROTEIN ([id number])Or dered By: Digital Experience Manager on 10-15-2017 CRP mass conc 1.0 mg/L Normal 0.0-4.9 [facility] Internal Medicine Work Phone: Comment on above: PATIENT NOT FASTINGP ERFORMED BY: CB [facility] [id number] [address] [facility] [id number] CBC (AUTO) ([id number])Ordered By : Digital Experience Manager on 10-15-2017 Erythrocyte distribution width Ratio (RBC) 13.8 % Normal 12.3-15.4 [facility] Internal Medicine Work Phone: Comment on above: PATIENT NOT FASTINGP ERFORMED BY: CB [facility] [id number] [address] [facility] [id number] Hematocrit Volume Fraction (Bld) 40.2 % Normal 34.0-46.6 [facility] Internal Medicine Work Phone: Comment on above: PATIENT NOT FASTINGP ERFORMED BY: CB [facility] [id number] [address] [facility] [id number] Hemoglobin mass conc (Bld) 13.4 g/dL Normal 11.1-15.9 [facility] Internal Medicine Work Phone: Comment on above: PATIENT NOT FASTINGP ERFORMED BY: CB [facility] [id number] [address] [facility] [id number] MCH Entitic mass (RBC) 29.8 pg Normal 26.6-33.0 [facility] Internal Medicine Work Phone: Comment on above: PATIENT NOT FASTINGP ERFORMED BY: CB [facility] [id number] [address] [facility] [id number] MCHC mass conc (RBC) 33.3 g/dL Normal 31.5-35.7 [facility] Internal Medicine Work Phone: Comment on above: PATIENT NOT FASTINGP ERFORMED BY: CB [facility] [id number] [address] [facility] [id number] MCV Entitic volume (RBC) 90 fL Normal 79-97 [facility] Work Phone: Comment on above: PATIENT NOT FASTINGP ERFORMED BY: ORTIZ [facility] [id number] [address] RoadDublin [place] [id number] Platelets #/vol (Bld) 211 {x10E3/uL} Normal 150-379 [facility] Work Phone: Comment on above: PATIENT NOT FASTINGP ERFORMED BY: CB [facility] [id number] [address] RoadDublin [place] [id number] RBC #/vol (Bld) 4.49 {x10E6/uL} Normal 3.77-5.28 [facility] Work Phone: Comment on above: PATIENT NOT FASTINGP ERFORMED BY: ORTIZ [facility] [id number] [address] RoadDublin [place] [id number] WBC #/vol (Bld) 4.9 {x10E3/uL} Normal 3.4-10.8 Compr [facility] Internal Medicine Work Phone: Comment on above: PATIENT NOT FASTINGP ERFORMED BY: ORTIZ [facility] [id number] [address] [facility] [place] [id number] METABOLIC PANEL, COMPREHENSI VE ([id number])Ordered By: Digital Experience Manager on 10-15-2017 Albumin mass conc 3.9 g/dL Normal 3.5-4.8 Compreh [facility] Internal Medicine Work Phone: Comment on above: PATIENT NOT FASTINGP ERFORMED BY: ORTIZ [facility] [id number] [address] [facility] [place] [id number] Albumin/Globulin mass ratio 1.6 {ratio} Normal 1.2-2.2 [facility] Work Phone: Comment on above: PATIENT NOT FASTINGP ERFORMED BY: ORTIZ [facility] [id number] [address] RoadDublin [place] [id number] ALP enzyme act/vol 78 [iU]/L Normal 39-117 Compre [facility] Internal Medicine Work Phone: Comment on above: PATIENT NOT FASTINGP ERFORMED BY: ORTIZ [facility] [id number] [address] RoadDublin [place] [id number] ALT enzyme act/vol 18 [iU]/L Normal 0-32 Compre [facility] Internal Medicine Work Phone: Comment on above: PATIENT NOT FASTINGP ERFORMED BY: CB [facility] [id number] [address] RoadDublin [place] [id number] AST enzyme act/vol 25 [iU]/L Normal 0-40 Compre [facility] Internal Medicine Work Phone: Comment on above: PATIENT NOT FASTINGP ERFORMED BY: CB [facility] [id number] [address] Roadbl[address] [place] [id number] Bilirubin mass conc 0.4 mg/dL Normal 0.0-1.2 Compr [facility] Internal Medicine Work Phone: Comment on above: PATIENT NOT FASTINGP ERFORMED BY: CB [facility] [id number] [address] [facility]At[facility] Rehabilitation Charlottein [place] [id number] Calcium mass conc 9.5 mg/dL Normal 8.7-10.3 Compreh [facility] Work Phone: Comment on above: PATIENT NOT FASTINGP ERFORMED BY: CB [facility] [id number] [address] RoadAt[facility] Rehabilitation Charlottein [place] [id number] Chloride molar conc 102 mmol/L Normal 96-106 Compr [facility] Internal Medicine Work Phone: Comment on above: PATIENT NOT FASTINGP ERFORMED BY: CB [facility] [id number] [address] RoadAt[facility] Health [facility] Rehabilitation Charlottein [place] [id number] CO2 molar conc 27 mmol/L Normal 18-29 Comprehens [facility] Internal Medicine Work Phone: Comment on above: PATIENT NOT FASTINGP ERFORMED BY: CB [facility] [id number] [address] RoadDublin [place] [id number] Creatinine mass conc 0.88 mg/dL Normal 0.57-1.00 Comp [facility] Work Phone: Comment on above: PATIENT NOT FASTINGP ERFORMED BY: CB [facility] [id number] [address] RoadDublin [place] [id number] GFR/1.73 sq M predicted among blacks CKD-EPI vol rate/area (S/P/Bld) 73 mL/min/1.73 Normal [facility] Work Phone: Comment on above: PATIENT NOT FASTINGP ERFORMED BY: CB [facility] [id number] [address] RoadDublin [place] [id number] GFR/1.73 sq M predicted among non-blacks CKD-EPI vol rate/area (S/P/Bld) 63 mL/min/1.73 Normal Comprehensiv e Internal Medicine Work Phone: Comment on above: PATIENT NOT FASTINGP ERFORMED BY: CB [facility] Jlowss2385 [address] RoadDublin [place] [id number] Globulin mass conc (S) 2.4 g/dL Normal 1.5-4.5 Co mprehensive Internal Medicine Work Phone: Comment on above: PATIENT NOT FASTINGP ERFORMED BY: CB [facility] Ieajmr6454 [address] RoadDublin [place] [id number] Glucose mass conc 87 mg/dL Normal 65-99 Compreh ensive Internal Medicine Work Phone: Comment on above: PATIENT NOT FASTINGP ERFORMED BY: CB [facility] Okrahj6020 [address] RoadDublin [place] [id number] Potassium molar conc 4.8 mmol/L Normal 3.5-5.2 Comp rehensive Internal Medicine Work Phone: Comment on above: PATIENT NOT FASTINGP ERFORMED BY: CB [facility] Ykrutl0981 [address] RoadDublin [place] [id number] Protein mass conc 6.3 g/dL Normal 6.0-8.5 Compreh ensive Internal Medicine Work Phone: Comment on above: PATIENT NOT FASTINGP ERFORMED BY: CB [facility] Yzbhsy2298 [address] RoadDublin [place] [id number] Sodium molar conc 143 mmol/L Normal 134-144 Compreh ensive Internal Medicine Work Phone: Comment on above: PATIENT NOT FASTINGP ERFORMED BY: CB [facility] Sfliyx3861 [address] RoadDublin [place] [id number] Urea nitrogen mass conc 10 mg/dL Normal 8-27 [facility] Work Phone: Comment on above: PATIENT NOT FASTINGP ERFORMED BY: ORTIZ [facility] Vbzogh4600 [address] RoadDublin [place] [id number] Urea nitrogen/Creatinine mass ratio 11 mg/mg Abnormal 09-10 [facility] Work Phone: Comment on above: PATIENT NOT FASTINGP ERFORMED BY: ORTIZ [facility] Jympcz8062 [address] RoadDublin [place] [id number] SED RATE ERYTHROCYTE ([id number]) Ordered By: Digital Experience Manager on 10-15-2017 ESR Velocity (Bld) 2 mm/h Normal 0-40 [facility] Internal Medicine Work Phone: Comment on above: PATIENT NOT FASTINGP ERFORMED BY: ORTIZ LabCoaustyn CroweCbkbld5721 [address] [facility] [place] [id number] CBC W/AUTO DIFF WBC ([id number])O rdered By: Digital Experience Manager on 09-01-2017 Basophils #/vol (Bld) 0.0 {x10E3/uL} Normal 0.0-0.2 [facility] Work Phone: Comment on above: PATIENT WAS FASTINGP ERFORMED BY: ORTIZ LabCoaustyn CroweUbmpkd8594 [address] [facility] [place] [id number] Basophils/100 WBC (Bld) 0 % Normal [facility] Work Phone: Comment on above: PATIENT WAS FASTINGP ERFORMED BY: ORTIZ LabCoaustyn CroweYggzxj7470 Rodriguez Roadblin [place] [id number] Eosinophils #/vol (Bld) 0.1 {x10E3/uL} Normal 0.0-0.4 [facility] Work Phone: Comment on above: PATIENT WAS FASTINGP ERFORMED BY: ORTIZ [facility] Uljdhy7584 [address] RoadDublin [place] [id number] Eosinophils/100 WBC (Bld) 1 % Normal [facility] Work Phone: Comment on above: PATIENT WAS FASTINGP ERFORMED BY: ORTIZ [facility] Iyzhto1304 [address] Roadblin [place] [id number] Erythrocyte distribution width Ratio (RBC) 13.8 % Normal 12.3-15.4 [facility] Work Phone: Comment on above: PATIENT WAS FASTINGP ERFORMED BY: ORTIZ LabAleksandr CroweSoqdgw5547 [address] [facility] [id number] Hematocrit Volume Fraction (Bld) 40.2 % Normal 34.0-46.6 [facility] Work Phone: Comment on above: PATIENT WAS FASTINGP ERFORMED BY: ORTIZ LabAleksandr CrowePxjuxh4920 [address] [facility] [id number] Hemoglobin mass conc (Bld) 13.2 g/dL Normal 11.1-15.9 [facility] Work Phone: Comment on above: PATIENT WAS FASTINGP ERFORMED BY: ORTIZ Crowelin6370 [address] [facility] [id number] Immature granulocytes #/vol (Bld) 0.0 {x10E3/uL} Normal 0.0-0.1 [facility] Work Phone: Comment on above: PATIENT WAS FASTINGP ERFORMED BY: ORTIZ Chester6370 [facility] [id number] Immature granulocytes/100 WBC (Bld) 0 % Normal [facility] Work Phone: Comment on above: PATIENT WAS FASTINGP ERFORMED BY: ORTIZ Crowelin6370 [facility] [id number] Lymphocytes #/vol (Bld) 1.3 {x10E3/uL} Normal 0.7-3.1 [facility] Work Phone: Comment on above: PATIENT WAS FASTINGP ERFORMED BY: ORTIZ LabKellie Hpyoit5412 [facility] [id number] Lymphocytes/100 WBC (Bld) 29 % Normal [facility] Work Phone: Comment on above: PATIENT WAS FASTINGP ERFORMED BY: ORTIZ Crowelin6[address] [facility] [id number] MCH Entitic mass (RBC) 29.5 pg Normal 26.6-33.0 Co [facility] Internal Medicine Work Phone: Comment on above: PATIENT WAS FASTINGP ERFORMED BY: ORTIZ Munguia Nsmhyr6589 [address] RoadDublin [place] [id number] MCHC mass conc (RBC) 32.8 g/dL Normal 31.5-35.7 [facility] Internal Medicine Work Phone: Comment on above: PATIENT WAS FASTINGP ERFORMED BY: ORTIZ LabCo Vtteka9636 [address] RoadDublin [place] [id number] MCV Entitic volume (RBC) 90 fL Normal 79-97 [facility] Work Phone: Comment on above: PATIENT WAS FASTINGP ERFORMED BY: ORTIZ [facility] Httgcu5842 [address] RoadDublin [place] [id number] Monocytes #/vol (Bld) 0.4 {x10E3/uL} Normal 0.1-0.9 [facility] Work Phone: Comment on above: PATIENT WAS FASTINGP ERFORMED BY: ORTIZ [facility] Gqbllf6338 [address] Roadblin [place] [id number] Monocytes/100 WBC (Bld) 9 % Normal [facility] Work Phone: Comment on above: PATIENT WAS FASTINGP ERFORMED BY: ORTIZ [facility] Hxowib2988 [address] RoadDublin [place] [id number] Neutrophils #/vol (Bld) 2.7 {x10E3/uL} Normal 1.4-7.0 [facility] Work Phone: Comment on above: PATIENT WAS FASTINGP ERFORMED BY: ORTIZ [facility] Txjcpi7010 [address] [facility] [place] [id number] Neutrophils/100 WBC (Bld) 61 % Normal [facility] Work Phone: Comment on above: PATIENT WAS FASTINGP ERFORMED BY: ORTIZ [facility] Ocisug5956 [address] RoadDublin [place] [id number] Platelets #/vol (Bld) 198 {x10E3/uL} Normal 150-379 [facility] Work Phone: Comment on above: PATIENT WAS FASTINGP ERFORMED BY: ORTIZ LabCo Mowwee5922 [address] RoadDublin [place] [id number] RBC #/vol (Bld) 4.47 {x10E6/uL} Normal 3.77-5.28 [facility] Medicineensive Internal Medicine Work Phone: Comment on above: PATIENT WAS FASTINGP ERFORMED BY: CB [facility] Hntmqu2308 [address] RoadDublin [place] [id number] WBC #/vol (Bld) 4.5 {x10E3/uL} Normal 3.4-10.8 [facility] Internal Medicine Work Phone: Comment on above: PATIENT WAS FASTINGP ERFORMED BY: CB [facility] Bdmkee8615 [address] RoadDublin [place] [id number] LIPID PANEL ([id number])Ordered B y: Digital Experience Manager on 09-01-2017 Cholesterol in HDL mass conc 59 mg/dL Normal [facility] Work Phone: Comment on above: PATIENT WAS FASTINGP ERFORMED BY: ORTIZ [facility] Dmwpqm5256 [address] RoadDublin [place] [id number] Cholesterol in LDL mass conc 72 mg/dL Normal 0-99 [facility] Work Phone: Comment on above: PATIENT WAS FASTINGP ERFORMED BY: ORTIZ [facility] Lmquro8246 [address] RoadDublin [place] [id number] Cholesterol in LDL/Cholesterol in HDL mass ratio 1.2 {ratio_units} Normal 0.0-3.2 [facility] Work Phone: Comment on above: LDL/HDL Ratio Men Wo men 1/2 Avg.Risk 1.0 1.5 Avg.Risk 3.6 3.2 2X Avg.Risk 6.2 5.0 3X Avg.Risk 8.0 6.1 PATIENT WAS FASTINGP ERFORMED BY: ORTIZ [facility] Rrpkdg6122 [address] RoadDublin [place] [id number] Cholesterol in VLDL mass conc 18 mg/dL Normal 5-40 [facility] Work Phone: Comment on above: PATIENT WAS FASTINGP ERFORMED BY: CB [facility] Zneasr7318 [address] RoadDublin [place] [id number] Cholesterol mass conc 149 mg/dL Normal 100-199 [facility] Work Phone: Comment on above: PATIENT WAS FASTINGP ERFORMED BY: ORTIZ [facility] Rsolsb4461 [address] RoadDublin [place] [id number] Triglyceride mass conc 92 mg/dL Normal 0-149 [facility] Internal Medicine Work Phone: Comment on above: PATIENT WAS FASTINGP ERFORMED BY: ORTIZ [facility] Lnxhqj5155 [address] [facility]in [place] [id number] METABOLIC PANEL, COMPREHENSI VE ([id number])Ordered By: Digital Experience Manager on 09-01-2017 Albumin mass conc 4.3 g/dL Normal 3.5-4.8 [facility] Internal Medicine Work Phone: Comment on above: PATIENT WAS FASTINGP ERFORMED BY: LabCo Bpunzw2728 [address] [facility] [id number] Albumin/Globulin mass ratio 2.0 {ratio} Normal 1.2-2.2 [facility] Work Phone: Comment on above: PATIENT WAS FASTINGP ERFORMED BY: [facility] Ecrwnv9885 [address] [facility] [id number] ALP enzyme act/vol 71 [iU]/L Normal 39-117 [facility] Internal Medicine Work Phone: Comment on above: PATIENT WAS FASTINGP ERFORMED BY: [facility] Bbpuif2605 [address] [facility] [place] [id number] ALT enzyme act/vol 11 [iU]/L Normal 0-32 [facility] Internal Medicine Work Phone: Comment on above: PATIENT WAS FASTINGP ERFORMED BY: [facility] Ehuanc6215 [address] [facility] [place] [id number] AST enzyme act/vol 16 [iU]/L Normal 0-40 [facility] Internal Medicine Work Phone: Comment on above: PATIENT WAS FASTINGP ERFORMED BY: [facility] Hhcqej3883 [address] [facility] [place] [id number] Bilirubin mass conc 0.4 mg/dL Normal 0.0-1.2 [facility] Internal Medicine Work Phone: Comment on above: PATIENT WAS FASTINGP ERFORMED BY: ORTIZ [facility] Jsxdyb0905 [address] RoadDublin [place] [id number] Calcium mass conc 9.5 mg/dL Normal 8.7-10.3 Compreh ensive Internal Medicine Work Phone: Comment on above: PATIENT WAS FASTINGP ERFORMED BY: ORTIZ [facility] Aqfbni8151 [address] RoadDublin [place] [id number] Chloride molar conc 102 mmol/L Normal 96-106 Compr ensive Internal Medicine Work Phone: Comment on above: PATIENT WAS FASTINGP ERFORMED BY: ORTIZ [facility] Lfstnl3890 [address] RoadDublin [place] [id number] CO2 molar conc 27 mmol/L Normal 18-29 Comprehens trupti Internal Medicine Work Phone: Comment on above: PATIENT WAS FASTINGP ERFORMED BY: ORTIZ [facility] Yduzec0607 [address] Roadblin [place] [id number] Creatinine mass conc 0.84 mg/dL Normal 0.57-1.00 Comp [facility] Work Phone: Comment on above: PATIENT WAS FASTINGP ERFORMED BY: [facility] Ritodo7692 [address] Roadblin [place] [id number] GFR/1.73 sq M predicted among blacks CKD-EPI vol rate/area (S/P/Bld) 77 mL/min/1.73 Normal Comprehensive Internal Medicine Work Phone: Comment on above: PATIENT WAS FASTINGP ERFORMED BY: Lab[facility] Ajecra1674 Rodriguez RoadAtrium Health Carol[facility] Rehabilitation Charlottein [place] [id number] GFR/1.73 sq M predicted among non-blacks CKD-EPI vol rate/area (S/P/Bld) 67 mL/min/1.73 Normal Comprehensiv e Internal Medicine Work Phone: Comment on above: PATIENT WAS FASTINGP ERFORMED BY: ORTIZ [facility] Uaogxy6153 [address] RoadDublin [place] [id number] Globulin mass conc (S) 2.2 g/dL Normal 1.5-4.5 Co [facility]ensive [facility] Work Phone: Comment on above: PATIENT WAS FASTINGP ERFORMED BY: ORTIZ [facility] Ylavor8196 [address] RoadDublin [place] [id number] Glucose mass conc 88 mg/dL Normal 65-99 Compreh ensive Internal Medicine Work Phone: Comment on above: PATIENT WAS FASTINGP ERFORMED BY: ORTIZ [facility] Xjbmru1092 [address] RoadDublin [place] [id number] Potassium molar conc 4.3 mmol/L Normal 3.5-5.2 Comp rehensive Internal Medicine Work Phone: Comment on above: PATIENT WAS FASTINGP ERFORMED BY: ORTIZ [facility] Owxbsn0960 [address] RoadDublin [place] [id number] Protein mass conc 6.5 g/dL Normal 6.0-8.5 Compreh ensive Internal Medicine Work Phone: Comment on above: PATIENT WAS FASTINGP ERFORMED BY: ORTIZ [facility] Tnmdvq2782 [address] RoadDublin [place] [id number] Sodium molar conc 143 mmol/L Normal 134-144 Compreh ensive Internal Medicine Work Phone: Comment on above: PATIENT WAS FASTINGP ERFORMED BY: ORTIZ [facility] Czixwh6134 [address] RoadDublin [place] [id number] Urea nitrogen mass conc 13 mg/dL Normal 8-27 [facility] Work Phone: Comment on above: PATIENT WAS FASTINGP ERFORMED BY: ORTIZ [facility] Nlelxr5874 [address] RoadDublin [place] [id number] Urea nitrogen/Creatinine mass ratio 15 mg/mg Normal 12- [facility] Internal Medicine Work Phone: Comment on above: PATIENT WAS FASTINGP ERFORMED BY: ORTIZ [facility] Lxrcnd0122 [address] RoadDublin [place] [id number] TSH ([id number])Ordered By: Samantha Montelongo on 09-01-2017 Thyrotropin Qn 2.410 {uIU/mL} Normal 0.450-4.50 0 [facility] Medicine Work Phone: Comment on above: PATIENT WAS FASTINGP ERFORMED BY: ORTIZ [facility] Zzehgl4198 [address] RoadDublin [place] [id number] VITAMIN B-12 (CYANOCOBALAMIN ) ([id number])Ordered By: Digital Experience Manager on 09-01-2017 Cobalamin (Vitamin B12) mass conc 311 pg/mL Normal 232-1245 [facility] Medicine Work Phone: Comment on above: Please note refere nce interval change PATIENT WAS FASTINGP ERFORMED BY: Hipvan Qyjbtb6108 [facility] [id number] Vitamin D Hydroxy (30864)Ord ered By: Digital Experience Manager on 09-01-2017 25-Hydroxyvitamin D2+25-Hydroxyvitamin D3 mass conc 33.4 ng/mL Normal 30.0-100.0 [facility] Internal Medicine Work Phone: Comment on above: Vitamin D deficiency has been defined by the [place] ofMedicine and an Endocrine Society practice guideline as alevel of serum 25-OH vitamin D less than 20 ng/mL (1,2).The Endocrine Society went on to further define vitamin Dinsufficiency as a level between 21 and 29 ng/mL (2).1. IOM ([place] of Medicine). 2010. Dietary reference intakes for calcium and D. [place]: The National Academies Press.2. Allie MF, Emile NC, Natalie POOLE, et al. Evaluation, treatment, and prevention of vitamin D deficiency: an Endocrine Society clinical practice guideline. JCEM. 2010; 96(7):1911-30. PATIENT WAS FASTINGP ERFORMED BY: [employer]6370 [facility] [id number] Office Visiton 06-05-2017 Dietary management education, guidance, and counseling (procedure) yes Invalid Interpretation Code [facility] Work Phone: Documentation of current medications (procedure) Done Invalid Interpretation Code [facility] Work Phone: Fall risk assessment No Invalid Interpretation Code [facility] Work Phone: Tobacco use CPHS Never smoker Invalid Interpretation Code [facility] Work Phone: CALCIFIDIOL (14927) VIT D 25 Ordered By: Digital Experience Manager on 12-16-2016 25-Hydroxyvitamin D2+25-Hydroxyvitamin D3 mass conc 37.5 ng/mL Normal 30.0-100.0 [facility] Work Phone: Comment on above: Vitamin D deficiency has been defined by the [place] ofHol[facility] Hospitalcine and an Endocrine Society practice guideline as alevel of serum 25-OH vitamin D less than 20 ng/mL (1,2).The Endocrine Society went on to further define vitamin Dinsufficiency as a level between 21 and 29 ng/mL (2).1. IOM ([place] of Medicine). 2010. Dietary reference intakes for calcium and D. [place]: The National AcademB-[employer] Press.2. Allie MF, Emile NC, Natalie POOLE, et al. Evaluation, treatment, and prevention of vitamin D deficiency: an Endocrine Society clinical practice guideline. JCEM. 2010; 96(7):1911-30. PATIENT WAS FASTINGP ERFORMED BY: [employer] LabEoeMobilerp Azbuoy4585 [address] MetaNotesblin [place] [id number] HEPATIC FUNCTION PANEL (8007 6)Ordered By: Digital Experience Manager on 12-16-2016 Albumin mass conc 4.3 g/dL Normal 3.5-4.8 [facility] Internal Medicine Work Phone: Comment on above: PATIENT WAS FASTINGP ERFORMED BY: CB [facility] Ipwsfr1480 [address] Yorumla.comDublin [place] [id number] ALP enzyme act/vol 72 [iU]/L Normal 39-117 [facility] Internal Medicine Work Phone: Comment on above: PATIENT WAS FASTINGP ERFORMED BY: CB [facility] Crcjse0448 [address] RoadDublin [place] [id number] ALT enzyme act/vol 15 [iU]/L Normal 0-32 [facility] Internal Medicine Work Phone: Comment on above: PATIENT WAS FASTINGP ERFORMED BY: CB [facility] Onuysh9771 [address] RoadDublin [place] [id number] AST enzyme act/vol 18 [iU]/L Normal 0-40 [facility] Internal Medicine Work Phone: Comment on above: PATIENT WAS FASTINGP ERFORMED BY: CB [facility] Ssywis3814 [address] Yorumla.comDublin [place] [id number] Bilirubin mass conc 0.5 mg/dL Normal 0.0-1.2 Compr ehensive Internal Medicine Work Phone: Comment on above: PATIENT WAS FASTINGP ERFORMED BY: ORTIZ [facility] Ziqzkg7821 [address] [facility]in [place] [id number] Bilirubin.direct mass conc 0.16 mg/dL Normal 0.00-0.40 [facility] Work Phone: Comment on above: PATIENT WAS FASTINGP ERFORMED BY: CB [facility] Iqamzs6283 [address] [facility]in [place] [id number] Protein mass conc 6.7 g/dL Normal 6.0-8.5 Compreh ensive Internal Medicine Work Phone: Comment on above: PATIENT WAS FASTINGP ERFORMED BY: ORTIZ [facility] Ingzxc8727 [facility] [id number] LIPID PANEL (97733)Ordered B y: Digital Experience Manager on 12-16-2016 Cholesterol in HDL mass conc 56 mg/dL Normal [facility] Work Phone: Comment on above: PATIENT WAS FASTINGP ERFORMED BY: ORTIZ [facility] Ihmttd0963 [facility] [id number] Information: [id number], [id number] Cholesterol in LDL mass conc 44 mg/dL Normal 0-99 [facility] Work Phone: Comment on above: PATIENT WAS FASTINGP ERFORMED BY: ORTIZ [facility] Irsfej7035 [facility] [id number] Information: [id number], [id number] Cholesterol in LDL/Cholesterol in HDL mass ratio 0.8 {ratio_units} Normal 0.0-3.2 [facility] Work Phone: Comment on above: LDL/HDL Ratio Men Wo men 1/2 Avg.Risk 1.0 1.5 Avg.Risk 3.6 3.2 2X Avg.Risk 6.2 5.0 3X Avg.Risk 8.0 6.1 PATIENT WAS FASTINGP ERFORMED BY: ORTIZ [facility] Ogrwmr2320 [facility] [id number] Information: [id number], [id number] Cholesterol in VLDL mass conc 27 mg/dL Normal 5-40 [facility] Work Phone: Comment on above: PATIENT WAS FASTINGP ERFORMED BY: ORTIZ [facility] Laztsf1750 [address] [facility] [id number] Information: [id number], [id number] Cholesterol mass conc 127 mg/dL Normal 100-199 Com prehensive Internal Medicine Work Phone: Comment on above: PATIENT WAS FASTINGP ERFORMED BY: CB [facility] Nbodzv2778 [facility] [id number] Information: [id number], [id number] Triglyceride mass conc 135 mg/dL Normal 0-149 Co mprehensive Internal Medicine Work Phone: Comment on above: PATIENT WAS FASTINGP ERFORMED BY: ORTIZ [facility] Linbbz8360 [facility] [id number] Information: [id number], [id number] 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 Left ventricular Ejection fraction 70 % Invalid Interpretation Code [facility] Work Phone: Lipid Panel (83591)Ordered B y: Digital Experience Manager on 09-16-2016 Cholesterol in HDL mass conc 44 mg/dL Normal [facility] Work Phone: Comment on above: PATIENT WAS FASTINGP ERFORMED BY: ORTIZ [facility] Jrwdei2769 [facility] [id number] Cholesterol in LDL mass conc 161 mg/dL Abnormal 0-99 [facility] Work Phone: Comment on above: PATIENT WAS FASTINGP ERFORMED BY: CB [facility] Geimqu4696 [facility] [id number] Cholesterol in LDL/Cholesterol in HDL mass ratio 3.7 {ratio_units} Abnormal 0.0-3.2 [facility] Work Phone: Comment on above: LDL/HDL Ratio Men Wo men 1/2 Avg.Risk 1.0 1.5 Avg.Risk 3.6 3.2 2X Avg.Risk 6.2 5.0 3X Avg.Risk 8.0 6.1 PATIENT WAS FASTINGP ERFORMED BY: CB [facility] Heognl9289 [address] RoadDublin [place] [id number] Cholesterol in VLDL mass conc 28 mg/dL Normal 5-40 [facility] Work Phone: Comment on above: PATIENT WAS FASTINGP ERFORMED BY: CB [facility] Gtvuef7934 [address] RoadDublin [place] [id number] Cholesterol mass conc 233 mg/dL Abnormal 100-199 Com prehensive Internal Medicine Work Phone: Comment on above: PATIENT WAS FASTINGP ERFORMED BY: CB [facility] Grjfix4921 [address] RoadDublin [place] [id number] Triglyceride mass conc 139 mg/dL Normal 0-149 [facility] Work Phone: Comment on above: PATIENT WAS FASTINGP ERFORMED BY: CB [facility] Rdriov4999 [address] RoadDublin [place] [id number] VITAMIN B-12 (CYANOCOBALAMIN ) (80390)Ordered By: Digital Experience Manager on 09-16-2016 Cobalamin (Vitamin B12) mass conc 788 pg/mL Normal 211-946 [facility] Work Phone: Comment on above: PATIENT WAS FASTINGP ERFORMED BY: CB [facility] Wcicts8813 [address] RoadDublin [place] [id number] CALCIFIDIOL (40042) VIT D 25 Ordered By: Digital Experience Manager on 07-01-2016 25-Hydroxyvitamin D2+25-Hydroxyvitamin D3 mass conc 34.8 ng/mL Normal 30.0-100.0 [facility] Work Phone: Comment on above: Vitamin D deficiency has been defined by the [place] ofMedicine and an Endocrine Society practice guideline as alevel of serum 25-OH vitamin D less than 20 ng/mL (1,2).The Endocrine Society went on to further define vitamin Dinsufficiency as a level between 21 and 29 ng/mL (2).1. IOM ([place] of Medicine). 2010. Dietary reference intakes for calcium and D. [place]: The National Academies Press.2. Allie MF, Emile PONCE, Natalie POOLE, et al. Evaluation, treatment, and prevention of vitamin D deficiency: an Endocrine Society clinical practice guideline. JCEM. 2010; 96(7):1911-30. PATIENT WAS FASTINGP ERFORMED BY: ORTIZ [facility] Hsbkum9606 [address] RoadDublin [place] [id number] CBC W/AUTO DIFF WBC (10807)O rdered By: Digital Experience Manager on 07-01-2016 Basophils #/vol (Bld) 0.0 {x10E3/uL} Normal 0.0-0.2 [facility] Work Phone: Comment on above: PATIENT WAS FASTINGP ERFORMED BY: ORTIZ [facility] Gtlyod3148 [address] RoadDublin [place] [id number] Basophils/100 WBC (Bld) 0 % Normal [facility] Work Phone: Comment on above: PATIENT WAS FASTINGP ERFORMED BY: ORTIZ [facility] Bscwxd9172 [address] RoadDublin [place] [id number] Eosinophils #/vol (Bld) 0.1 {x10E3/uL} Normal 0.0-0.4 [facility] Work Phone: Comment on above: PATIENT WAS FASTINGP ERFORMED BY: ORTIZ [facility] Pfywdx0351 [address] RoadDublin [place] [id number] Eosinophils/100 WBC (Bld) 2 % Normal [facility] Work Phone: Comment on above: PATIENT WAS FASTINGP ERFORMED BY: [facility] Fsbiib8028 [address] RoadDublin [place] [id number] Erythrocyte distribution width Ratio (RBC) 14.0 % Normal 12.3-15.4 [facility] Work Phone: Comment on above: PATIENT WAS FASTINGP ERFORMED BY: CB [facility] Jzlexb5376 [address] RoadDublin [place] [id number] Hematocrit Volume Fraction (Bld) 42.4 % Normal 34.0-46.6 [facility] Work Phone: Comment on above: PATIENT WAS FASTINGP ERFORMED BY: CB [facility] Cgdxcq9706 [address] RoadDublin [place] [id number] Hemoglobin mass conc (Bld) 14.1 g/dL Normal 11.1-15.9 [facility] Work Phone: Comment on above: PATIENT WAS FASTINGP ERFORMED BY: LabCoRobert Wood Johnson University HospitalWpzaxo6975 [address] [facility]in [place] [id number] Immature granulocytes #/vol (Bld) 0.0 {x10E3/uL} Normal 0.0-0.1 Comprehensive Internal Medicine Work Phone: Comment on above: PATIENT WAS FASTINGP ERFORMED BY: LabCrittenton Behavioral HealthQxwquy6389 [address] [facility] [id number] Immature granulocytes/100 WBC (Bld) 0 % Normal [facility] Work Phone: Comment on above: PATIENT WAS FASTINGP ERFORMED BY: [facility]6370 [address] [facility] [id number] Lymphocytes #/vol (Bld) 1.8 {x10E3/uL} Normal 0.7-3.1 [facility] Work Phone: Comment on above: PATIENT WAS FASTINGP ERFORMED BY: LabCrittenton Behavioral HealthWaddks0244 [address] [facility] [id number] Lymphocytes/100 WBC (Bld) 31 % Normal [facility] Work Phone: Comment on above: PATIENT WAS FASTINGP ERFORMED BY: LabCoLovelace Rehabilitation HospitalIbixvz8696 [facility] [id number] MCH Entitic mass (RBC) 29.7 pg Normal 26.6-33.0 [facility] Internal Medicine Work Phone: Comment on above: PATIENT WAS FASTINGP ERFORMED BY: LabCo Phfqnu3541 [address] [facility] [id number] MCHC mass conc (RBC) 33.3 g/dL Normal 31.5-35.7 [facility] Internal Medicine Work Phone: Comment on above: PATIENT WAS FASTINGP ERFORMED BY: LabCo Ypboyk5595 [facility] [id number] MCV Entitic volume (RBC) 89 fL Normal 79-97 [facility] Work Phone: Comment on above: PATIENT WAS FASTINGP ERFORMED BY: ORTIZ [facility] Wrqbjt0630 [address] [facility] [id number] Monocytes #/vol (Bld) 0.4 {x10E3/uL} Normal 0.1-0.9 [facility] Work Phone: Comment on above: PATIENT WAS FASTINGP ERFORMED BY: ORTIZ [facility]Per[facility] Rllyno4936 [facility] [id number] Monocytes/100 WBC (Bld) 6 % Normal [facility] Work Phone: Comment on above: PATIENT WAS FASTINGP ERFORMED BY: ORTIZ [facility] Qpdafj5101 [address] [facility] [id number] Neutrophils #/vol (Bld) 3.7 {x10E3/uL} Normal 1.4-7.0 [facility] Work Phone: Comment on above: PATIENT WAS FASTINGP ERFORMED BY: ORTIZ [facility]eraustyn CrowePqinmu8105 [facility] [id number] Neutrophils/100 WBC (Bld) 61 % Normal [facility] Work Phone: Comment on above: PATIENT WAS FASTINGP ERFORMED BY: ORTIZ LabOkaustyn CroweUmemzq4169 [facility] [id number] Platelets #/vol (Bld) 221 {x10E3/uL} Normal 150-379 [facility] Work Phone: Comment on above: PATIENT WAS FASTINGP ERFORMED BY: ORTIZ [facility]Per[facility] Sjpeqq2929 [facility] [id number] RBC #/vol (Bld) 4.75 {x10E6/uL} Normal 3.77-5.28 [facility] Internal Medicine Work Phone: Comment on above: PATIENT WAS FASTINGP ERFORMED BY: ORTIZ [facility]Mar[facility] Hospital6370 [facility] [id number] WBC #/vol (Bld) 6.0 {x10E3/uL} Normal 3.4-10.8 [facility] Internal Medicine Work Phone: Comment on above: PATIENT WAS FASTINGP ERFORMED BY: ORTIZ Ameyaaustyn Qsmwmq4719 [facility] [id number] LIPID PANEL (76990)Ordered B y: Digital Experience Manager on 07-01-2016 Cholesterol in HDL mass conc 41 mg/dL Normal [facility] Work Phone: Comment on above: According to ATP-III Guidelines, HDL-C >59 mg/dL is considered anegative risk factor for CHD. PATIENT WAS FASTINGP ERFORMED BY: ORTIZ Crowelin6370 [facility] [id number] Cholesterol in LDL mass conc 129 mg/dL Abnormal 0-99 [facility] Work Phone: Comment on above: PATIENT WAS FASTINGP ERFORMED BY: ORTIZ Crowelin6370 [facility] [id number] Cholesterol in LDL/Cholesterol in HDL mass ratio 3.1 {ratio_units} Normal 0.0-3.2 [facility] Work Phone: Comment on above: LDL/HDL Ratio Men Wo men 1/2 Avg.Risk 1.0 1.5 Avg.Risk 3.6 3.2 2X Avg.Risk 6.2 5.0 3X Avg.Risk 8.0 6.1 PATIENT WAS FASTINGP ERFORMED BY: ORTIZ Munguia Bnkkkx3103 [facility] [id number] Cholesterol in VLDL mass conc 45 mg/dL Abnormal 5-40 [facility] Work Phone: Comment on above: PATIENT WAS FASTINGP ERFORMED BY: ORTIZ Crowelin6370 [facility] [id number] Cholesterol mass conc 215 mg/dL Abnormal 100-199 Com prehensive Internal Medicine Work Phone: Comment on above: PATIENT WAS FASTINGP ERFORMED BY: ORTIZ LabAleksandr Dedboy3001 [facility] [id number] Triglyceride mass conc 223 mg/dL Abnormal 0-149 Co mprehensive Internal Medicine Work Phone: Comment on above: PATIENT WAS FASTINGP ERFORMED BY: ORTIZ LabAleksandr CroweBwlipb9854 [facility] [id number] METABOLIC PANEL, COMPREHENSI VE ([id number])Ordered By: Digital Experience Manager on 07-01-2016 Albumin mass conc 4.1 g/dL Normal 3.5-4.8 Compreh ensive Internal Medicine Work Phone: Comment on above: PATIENT WAS FASTINGP ERFORMED BY: ORTIZ Crowelin6370 [address] RoadDublin [place] [id number] Albumin/Globulin mass ratio 1.6 {ratio} Normal 1.1-2.5 [facility] Work Phone: Comment on above: PATIENT WAS FASTINGP ERFORMED BY: ORTIZ LabAleksandr CroweNdueld8171 Rodriguez RoadDublin [place] [id number] ALP enzyme act/vol 98 [iU]/L Normal 39-117 Compre [facility] Internal Medicine Work Phone: Comment on above: PATIENT WAS FASTINGP ERFORMED BY: ORTIZ Chester6370 [address] RoadDublin [place] [id number] ALT enzyme act/vol 11 [iU]/L Normal 0-32 Compre [facility] Internal Medicine Work Phone: Comment on above: PATIENT WAS FASTINGP ERFORMED BY: ORTIZ Crowelin6370 [address] RoadDublin [place] [id number] AST enzyme act/vol 17 [iU]/L Normal 0-40 Compre [facility] Internal Medicine Work Phone: Comment on above: PATIENT WAS FASTINGP ERFORMED BY: ORTIZ Crowelin6370 [address] RoadDublin [place] [id number] Bilirubin mass conc 0.2 mg/dL Normal 0.0-1.2 Compr [facility] Internal Medicine Work Phone: Comment on above: PATIENT WAS FASTINGP ERFORMED BY: ORTIZ LabCoaustyn CroweGzhehy3670 [address] RoadDublin [place] [id number] Calcium mass conc 9.8 mg/dL Normal 8.7-10.3 Compreh ensive Internal Medicine Work Phone: Comment on above: PATIENT WAS FASTINGP ERFORMED BY: ORTIZ LabAleksandr CroweFbppzr0227 Rodriguez RoadDublin [place] [id number] Chloride molar conc 101 mmol/L Normal 97-106 Compr ehensive Internal Medicine Work Phone: Comment on above: Please note refere nce interval change PATIENT WAS FASTINGP ERFORMED BY: ORTIZ LabCoaustyn ChesterVliyyh6515 [address] [facility] [id number] CO2 molar conc 27 mmol/L Normal 18-29 Comprehens trupti Internal Medicine Work Phone: Comment on above: PATIENT WAS FASTINGP ERFORMED BY: ORTIZ [facility] Ejeguf2948 [facility] [id number] Creatinine mass conc 0.89 mg/dL Normal 0.57-1.00 Comp rehensive Internal Medicine Work Phone: Comment on above: PATIENT WAS FASTINGP ERFORMED BY: ORTIZ LabCo Iyftof5468 [facility] [id number] GFR/1.73 sq M predicted among blacks CKD-EPI vol rate/area (S/P/Bld) 72 mL/min/1.73 Normal [facility] Work Phone: Comment on above: PATIENT WAS FASTINGP ERFORMED BY: ORTIZ LabCo Ralybi1075 [address] [facility] [id number] GFR/1.73 sq M predicted among non-blacks CKD-EPI vol rate/area (S/P/Bld) 63 mL/min/1.73 Normal Comprehensiv e Internal Medicine Work Phone: Comment on above: PATIENT WAS FASTINGP ERFORMED BY: ORTIZ LabCo Digqme2739 [facility] [id number] Globulin mass conc (S) 2.5 g/dL Normal 1.5-4.5 Co mprehensive Internal Medicine Work Phone: Comment on above: PATIENT WAS FASTINGP ERFORMED BY: ORTIZ [facility] Wlyrnc1755 [address] [facility] [id number] Glucose mass conc 92 mg/dL Normal 65-99 Compreh ensive Internal Medicine Work Phone: Comment on above: PATIENT WAS FASTINGP ERFORMED BY: ORTIZ [facility] Azkpjt8318 [facility] Centerblin [place] [id number] Potassium molar conc 5.0 mmol/L Normal 3.5-5.2 Comp rehensive Internal Medicine Work Phone: Comment on above: Please note refere nce interval change PATIENT WAS FASTINGP ERFORMED BY: ORTIZ Crowelin6370 [address] [facility] [id number] Protein mass conc 6.6 g/dL Normal 6.0-8.5 Compreh ensive Internal Medicine Work Phone: Comment on above: PATIENT WAS FASTINGP ERFORMED BY: ORTIZ Crowelin6370 [address] [facility]in [place] [id number] Sodium molar conc 143 mmol/L Normal 136-144 Compreh ensive Internal Medicine Work Phone: Comment on above: Please note refere nce interval change PATIENT WAS FASTINGP ERFORMED BY: ORTIZ Chester6370 [facility] [id number] Urea nitrogen mass conc 9 mg/dL Normal 8-27 [facility] Work Phone: Comment on above: PATIENT WAS FASTINGP ERFORMED BY: ORTIZ Chester6370 [facility] [id number] Urea nitrogen/Creatinine mass ratio 10 mg/mg Abnormal 11- [facility] Work Phone: Comment on above: PATIENT WAS FASTINGP ERFORMED BY: ORTIZ Chester6370 [facility] [id number] MICROALBUMINOrdered By: Syst em Lead Athlete on 07-01-2016 Albumin DL <= 20 mg/L mass conc (U) 5.9 ug/mL Normal [facility] Work Phone: Comment on above: PATIENT WAS FASTINGP ERFORMED BY: ORTIZ Crowelin6370 [facility] [id number] Albumin/Creatinine mass ratio (U) 4.3 {mg/g_creat} Normal 0.0-30.0 [facility] Work Phone: Comment on above: PATIENT WAS FASTINGP ERFORMED BY: ORTIZ Crowelin6370 [address] Roadblin [place] [id number] Creatinine mass conc (U) 138.1 mg/dL Normal [facility] Work Phone: Comment on above: PATIENT WAS FASTINGP ERFORMED BY: ORTIZ LabKellie Zeyntt9617 [address] Roadblin [place] [id number] TSH ([id number])Ordered By: Syste m Lead Athlete on 07-01-2016 Thyrotropin Qn 3.470 {uIU/mL} Normal 0.450-4.50 0 [facility] Work Phone: Comment on above: PATIENT WAS FASTINGP ERFORMED BY: ORTIZ [facility] Tryxpf7137 [address] [facility]in [place] [id number] URINALYSIS, W/ MICRO ([id number]) Ordered By: Digital Experience Manager on 07-01-2016 Appearance Nom (U) Clear Normal Compre hensive Internal Medicine Work Phone: Comment on above: PATIENT WAS FASTINGP ERFORMED BY: ORTIZ LabPer[facility] Dbskef1754 [address] RoadAtrium Health Carol[facility] Rehabilitation Charlottein [place] [id number] Bilirubin Ql (U) Negative Normal Comprehe nsive Internal Medicine Work Phone: Comment on above: PATIENT WAS FASTINGP ERFORMED BY: ORTIZ [facility]Per[facility] Zusdlt9970 [address] [facility]in [place] [id number] Color Nom (U) Yellow Normal Comprehensi ve Internal Medicine Work Phone: Comment on above: PATIENT WAS FASTINGP ERFORMED BY: ORTIZ LabPer[facility] Tfdzme2642 [address] Roadblin [place] [id number] Glucose Ql (U) Negative Normal Comprehens trupti Internal Medicine Work Phone: Comment on above: PATIENT WAS FASTINGP ERFORMED BY: ORTIZ LabCo Jijmpb7484 [address] RoadDublin [place] [id number] Hemoglobin Ql (U) Negative Normal Compreh ensive Internal Medicine Work Phone: Comment on above: PATIENT WAS FASTINGP ERFORMED BY: ORTIZ LabCo Twukvq0162 [address] RoadDublin [place] [id number] Ketones Ql (U) Negative Normal Comprehens trupti Internal Medicine Work Phone: Comment on above: PATIENT WAS FASTINGP ERFORMED BY: ORTIZ LabAleksandr CroweHpmrjx3916 [address] RoadDublin [place] [id number] Leukocyte esterase Test strip Ql (U) Negative Normal [facility] Work Phone: Comment on above: PATIENT WAS FASTINGP ERFORMED BY: ORTIZ Crowelin6370 [address] RoadDublin [place] [id number] Microscopic observation LM Nom (Urine sed) MICRON Normal [facility] Work Phone: Comment on above: Microscopic follows if indicated. PATIENT WAS FASTINGP ERFORMED BY: ORTIZ Crowelin6370 [address] RoadDublin [place] [id number] Microscopic observation LM Nom (Urine sed) See below: Normal [facility] Work Phone: Comment on above: Microscopic was derrick cated and was performed. PATIENT WAS FASTINGP ERFORMED BY: ORTIZ Crowelin6370 [address] RoadDublin [place] [id number] Nitrite Ql (U) Negative Normal Comprehens trupti Internal Medicine Work Phone: Comment on above: PATIENT WAS FASTINGP ERFORMED BY: ORTIZ Crowelin6370 [address] RoadDublin [place] [id number] pH (U) 5.5 [pH] Normal 5.0-7.5 [facility] Work Phone: Comment on above: PATIENT WAS FASTINGP ERFORMED BY: ORTIZ Crowelin6370 [address] RoadDublin [place] [id number] Protein Ql (U) Negative Normal Comprehens trupti Internal Medicine Work Phone: Comment on above: PATIENT WAS FASTINGP ERFORMED BY: ORTIZ LabAleksandr CroweZzrtsb7179 [address] RoadDublin [place] [id number] Specific gravity Relative Density (U) 1.016 1 Normal 1.005-1.03 0 [facility] Work Phone: Comment on above: PATIENT WAS FASTINGP ERFORMED BY: ORTIZ LabAleksandr CroweKbnfyv8015 Rodriguez RoadDublin [place] [id number] Urobilinogen Test strip mass conc (U) 0.2 mg/dL Normal 0.2-1.0 Comprehensiv e Internal Medicine Work Phone: Comment on above: PATIENT WAS FASTINGP ERFORMED BY: ORTIZ Hipvan Dybpmr8970 [facility] [id number] VITAMIN B-12 (CYANOCOBALAMIN ) ([id number])Ordered By: Digital Experience Manager on 07-01-2016 Cobalamin (Vitamin B12) mass conc 861 pg/mL Normal 211-946 [facility] Work Phone: Comment on above: PATIENT WAS FASTINGP ERFORMED BY: Hipvan Pfflub7288 [facility] [id number] CALCIFIDIOL (15767) VIT D 25 Ordered By: Digital Experience Manager on 12-05-2015 25-Hydroxyvitamin D2+25-Hydroxyvitamin D3 mass conc 40.5 ng/mL Normal 30.0-100.0 [facility] Work Phone: Comment on above: Vitamin D deficiency has been defined by the [place] ofMedicine and an Endocrine Society practice guideline as alevel of serum 25-OH vitamin D less than 20 ng/mL (1,2).The Endocrine Society went on to further define vitamin Dinsufficiency as a level between 21 and 29 ng/mL (2).1. IOM ([place] of Medicine). 2010. Dietary reference intakes for calcium and D. [place]: The National Academies Press.2. Allie MF, Emile NC, Natalie POOLE, et al. Evaluation, treatment, and prevention of vitamin D deficiency: an Endocrine Society clinical practice guideline. JCEM. 2010; 96(7):1911-30. PATIENT WAS FASTINGP ERFORMED BY: Hipvan Bwfeao8787 [facility] [id number] CBC W/AUTO DIFF WBC (89488)O rdered By: Digital Experience Manager on 12-05-2015 Basophils #/vol (Bld) 0.0 {x10E3/uL} Normal 0.0-0.2 [facility] Work Phone: Comment on above: PATIENT WAS FASTINGP ERFORMED BY: HipvanJohn Ville 7960070 [facility] [id number] Information: [id number] Basophils/100 WBC (Bld) 1 % Normal [facility] Work Phone: Comment on above: PATIENT WAS FASTINGP ERFORMED BY: [address] [id number] Information: [id number] Eosinophils #/vol (Bld) 0.2 {x10E3/uL} Normal 0.0-0.4 [facility] Work Phone: Comment on above: PATIENT WAS FASTINGP ERFORMED BY: [address] [id number] Information: [id number] Eosinophils/100 WBC (Bld) 4 % Normal [facility] Work Phone: Comment on above: PATIENT WAS FASTINGP ERFORMED BY: [address] [id number] Information: [id number] Erythrocyte distribution width Ratio (RBC) 13.7 % Normal 12.3-15.4 [facility] Work Phone: Comment on above: PATIENT WAS FASTINGP ERFORMED BY: [address] [id number] Information: [id number] Hematocrit Volume Fraction (Bld) 40.2 % Normal 34.0-46.6 [facility] Work Phone: Comment on above: PATIENT WAS FASTINGP ERFORMED BY: [place] [id number] [facility] [id number] Information: [id number] Hemoglobin mass conc (Bld) 13.6 g/dL Normal 11.1-15.9 [facility] Work Phone: Comment on above: PATIENT WAS FASTINGP ERFORMED BY: [place] [id number] [facility] [id number] Information: [id number] Immature granulocytes #/vol (Bld) 0.0 {x10E3/uL} Normal 0.0-0.1 [facility] Work Phone: Comment on above: PATIENT WAS FASTINGP ERFORMED BY: ORTIZ [place] [id number] [facility] [id number] Information: [id number] Immature granulocytes/100 WBC (Bld) 0 % Normal [facility] Work Phone: Comment on above: PATIENT WAS FASTINGP ERFORMED BY: [address] [id number] Information: [id number] Lymphocytes #/vol (Bld) 1.2 {x10E3/uL} Normal 0.7-3.1 [facility] Work Phone: Comment on above: PATIENT WAS FASTINGP ERFORMED BY: [address] [id number] Information: [id number] Lymphocytes/100 WBC (Bld) 26 % Normal [facility] Work Phone: Comment on above: PATIENT WAS FASTINGP ERFORMED BY: [address] [id number] Information: [id number] MCH Entitic mass (RBC) 30.0 pg Normal 26.6-33.0 [facility] Internal Medicine Work Phone: Comment on above: PATIENT WAS FASTINGP ERFORMED BY: [address] [id number] Information: [id number] MCHC mass conc (RBC) 33.8 g/dL Normal 31.5-35.7 [facility] Internal Medicine Work Phone: Comment on above: PATIENT WAS FASTINGP ERFORMED BY: [address] [id number] Information: [id number] MCV Entitic volume (RBC) 89 fL Normal 79-97 [facility] Work Phone: Comment on above: PATIENT WAS FASTINGP ERFORMED BY: ORTIZ [facility]Per[facility] Ummcib8750 [facility] [id number] Information: [id number] Monocytes #/vol (Bld) 0.5 {x10E3/uL} Normal 0.1-0.9 [facility] Work Phone: Comment on above: PATIENT WAS FASTINGP ERFORMED BY: ORTIZ [address] [id number] Information: [id number] Monocytes/100 WBC (Bld) 10 % Normal [facility] Work Phone: Comment on above: PATIENT WAS FASTINGP ERFORMED BY: ORTIZ Meena[address] [id number] Information: [id number] Neutrophils #/vol (Bld) 2.7 {x10E3/uL} Normal 1.4-7.0 [facility] Work Phone: Comment on above: PATIENT WAS FASTINGP ERFORMED BY: ORTIZ MeenaJohn Ville [id number] [facility] [id number] Information: 280692,[id number] Neutrophils/100 WBC (Bld) 59 % Normal [facility] Work Phone: Comment on above: PATIENT WAS FASTINGP ERFORMED BY: [address] [id number] Information: [id number] Platelets #/vol (Bld) 206 {x10E3/uL} Normal 150-379 [facility] Work Phone: Comment on above: PATIENT WAS FASTINGP ERFORMED BY: ORTIZ [place] [id number] [facility] [id number] Information: [id number] RBC #/vol (Bld) 4.54 {x10E6/uL} Normal 3.77-5.28 [facility] Internal Medicine Work Phone: Comment on above: PATIENT WAS FASTINGP ERFORMED BY: ORTIZ Chester6370 [facility] [id number] Information: [id number] WBC #/vol (Bld) 4.5 {x10E3/uL} Normal 3.4-10.8 [facility] Internal Medicine Work Phone: Comment on above: PATIENT WAS FASTINGP ERFORMED BY: ORTIZ Kiser70 [facility] [id number] Information: [id number] LIPID PANEL (26472)Ordered B y: Digital Experience Manager on 12-05-2015 Cholesterol in HDL mass conc 46 mg/dL Normal [facility] Work Phone: Comment on above: According to ATP-III Guidelines, HDL-C >59 mg/dL is considered anegative risk factor for CHD. PATIENT WAS FASTINGP ERFORMED BY: ORTIZ Nilda Chester6370 [facility] [id number] Cholesterol in LDL mass conc 126 mg/dL Abnormal 0-99 [facility] Work Phone: Comment on above: PATIENT WAS FASTINGP ERFORMED BY: ORTIZ Nilda Chester6370 [facility] [id number] Cholesterol in LDL/Cholesterol in HDL mass ratio 2.7 {ratio_units} Normal 0.0-3.2 [facility] Work Phone: Comment on above: LDL/HDL Ratio Men Wo men 1/2 Avg.Risk 1.0 1.5 Avg.Risk 3.6 3.2 2X Avg.Risk 6.2 5.0 3X Avg.Risk 8.0 6.1 PATIENT WAS FASTINGP ERFORMED BY: ORTIZ Crowelin6370 [facility] [id number] Cholesterol in VLDL mass conc 31 mg/dL Normal 5-40 [facility] Work Phone: Comment on above: PATIENT WAS FASTINGP ERFORMED BY: ORTIZ LabKellie Ehgwwa9437 [facility] [id number] Cholesterol mass conc 203 mg/dL Abnormal 100-199 [facility] prehensive Internal Medicine Work Phone: Comment on above: PATIENT WAS FASTINGP ERFORMED BY: ORTIZ [facility] Hzhlnz4640 [address] RoadDublin [place] [id number] Triglyceride mass conc 156 mg/dL Abnormal 0-149 [facility] Work Phone: Comment on above: PATIENT WAS FASTINGP ERFORMED BY: CB [facility] Rdptly8362 [address] Roadblin [place] [id number] METABOLIC PANEL, COMPREHENSI VE (10953)Ordered By: Digital Experience Manager on 12-05-2015 Albumin mass conc 4.2 g/dL Normal 3.5-4.8 [facility] Internal Medicine Work Phone: Comment on above: PATIENT WAS FASTINGP ERFORMED BY: ORTIZ [facility] Xqebsj1743 [address] [facility]in [place] [id number] Albumin/Globulin mass ratio 1.8 {ratio} Normal 1.1-2.5 [facility] Internal Medicine Work Phone: Comment on above: PATIENT WAS FASTINGP ERFORMED BY: ORTIZ [facility] Uzsaxw9301 [address] [facility] [place] [id number] ALP enzyme act/vol 71 [iU]/L Normal 39-117 [facility] Internal Medicine Work Phone: Comment on above: PATIENT WAS FASTINGP ERFORMED BY: ORTIZ [facility] Giapbe9616 [address] [facility] [place] [id number] ALT enzyme act/vol 10 [iU]/L Normal 0-32 [facility] Internal Medicine Work Phone: Comment on above: PATIENT WAS FASTINGP ERFORMED BY: CB [facility] Idzwwy6060 [address] Roadblin [place] [id number] AST enzyme act/vol 17 [iU]/L Normal 0-40 [facility] Internal Medicine Work Phone: Comment on above: PATIENT WAS FASTINGP ERFORMED BY: CB [facility] Awdivw3411 [address]bl[address] [place] [id number] Bilirubin mass conc 0.4 mg/dL Normal 0.0-1.2 [facility] Internal Medicine Work Phone: Comment on above: PATIENT WAS FASTINGP ERFORMED BY: ORTIZ [facility] Bmmmik4779 [address] RoadDublin [place] [id number] Calcium mass conc 9.5 mg/dL Normal 8.7-10.3 Compreh ensive Internal Medicine Work Phone: Comment on above: PATIENT WAS FASTINGP ERFORMED BY: ORTIZ [facility] Onjuna1379 [address] RoadDublin [place] [id number] Chloride molar conc 106 mmol/L Normal 97-108 Compr ehensive Internal Medicine Work Phone: Comment on above: PATIENT WAS FASTINGP ERFORMED BY: ORTIZ [facility] Maregx0586 [address] RoadDublin [place] [id number] CO2 molar conc 25 mmol/L Normal 18-29 Comprehens trupti Internal Medicine Work Phone: Comment on above: PATIENT WAS FASTINGP ERFORMED BY: ORTIZ [facility] Trilxe3635 [address] [facility] [id number] Creatinine mass conc 0.92 mg/dL Normal 0.57-1.00 Comp [facility] Work Phone: Comment on above: PATIENT WAS FASTINGP ERFORMED BY: ORTIZ [facility] Wktvhz1183 [address] [facility] [id number] GFR/1.73 sq M predicted among blacks CKD-EPI vol rate/area (S/P/Bld) 70 mL/min/1.73 Normal [facility] Work Phone: Comment on above: PATIENT WAS FASTINGP ERFORMED BY: ORTIZ [facility] Poewzk3723 [address] [facility] [id number] GFR/1.73 sq M predicted among non-blacks CKD-EPI vol rate/area (S/P/Bld) 61 mL/min/1.73 Normal Comprehensiv e Internal Medicine Work Phone: Comment on above: PATIENT WAS FASTINGP ERFORMED BY: ORTIZ [facility] Qiibcp3855 [address] [facility] [place] [id number] Globulin mass conc (S) 2.3 g/dL Normal 1.5-4.5 Co [facility] Work Phone: Comment on above: PATIENT WAS FASTINGP ERFORMED BY: ORTIZ Chester[address] [facility] [place] [id number] Glucose mass conc 84 mg/dL Normal 65-99 Compreh ensive Internal Medicine Work Phone: Comment on above: PATIENT WAS FASTINGP ERFORMED BY: ORTIZ Chester[address] [facility] [place] [id number] Potassium molar conc 4.6 mmol/L Normal 3.5-5.2 Comp [facility] Work Phone: Comment on above: PATIENT WAS FASTINGP ERFORMED BY: ORTIZ Chester[address] [facility] [place] [id number] Protein mass conc 6.5 g/dL Normal 6.0-8.5 Compreh ensive Internal Medicine Work Phone: Comment on above: PATIENT WAS FASTINGP ERFORMED BY: ORTIZ Chester[address] [facility] [id number] Sodium molar conc 145 mmol/L Abnormal 134-144 Compreh ensive Internal Medicine Work Phone: Comment on above: PATIENT WAS FASTINGP ERFORMED BY: ORTIZ Chester6370 [facility] [id number] Urea nitrogen mass conc 16 mg/dL Normal 8-27 [facility] Work Phone: Comment on above: PATIENT WAS FASTINGP ERFORMED BY: ORTIZ Chester6370 [facility] [id number] Urea nitrogen/Creatinine mass ratio 17 mg/mg Normal 11-26 [facility] Work Phone: Comment on above: PATIENT WAS FASTINGP ERFORMED BY: ORTIZ Crowelin6370 [facility] [id number] MICROALBUMINOrdered By: Syst em Lead Athlete on 12-05-2015 Albumin DL <= 20 mg/L mass conc (U) 25.6 ug/mL Abnormal 0.0-17.0 [facility] Work Phone: Comment on above: PATIENT WAS FASTINGP ERFORMED BY: ORTIZ Chester6[address] RoadDublin [place] [id number] Albumin/Creatinine mass ratio (U) 9.3 {mg/g_creat} Normal 0.0-30.0 [facility] Work Phone: Comment on above: PATIENT WAS FASTINGP ERFORMED BY: ORTIZ [facility] Kjbtci1286 Rodriguez RoadDublin [place] [id number] Creatinine mass conc (U) 276.5 mg/dL Normal 15.0-278.0 [facility] Work Phone: Comment on above: PATIENT WAS FASTINGP ERFORMED BY: [facility] Vkqpap4997 [address] RoadDublin [place] [id number] TSH ([id number])Ordered By: Syste m Lead Athlete on 12-05-2015 Thyrotropin Qn 1.330 {uIU/mL} Normal 0.450-4.50 0 [facility] Work Phone: Comment on above: PATIENT WAS FASTINGP ERFORMED BY: ORTIZ [facility] Bbnnsu6566 Rodriguez RoadDublin [place] [id number] URINALYSIS, W/ MICRO ([id number]) Ordered By: Digital Experience Manager on 12-05-2015 Appearance Nom (U) Clear Normal Compre hensive Internal Medicine Work Phone: Comment on above: PATIENT WAS FASTINGP ERFORMED BY: ORTIZ [facility] Zkthou1655 Rodriguez RoadDublin [place] [id number] Bilirubin Ql (U) Negative Normal Comprehe nsive Internal Medicine Work Phone: Comment on above: PATIENT WAS FASTINGP ERFORMED BY: [facility] Xhjrbf4442 Rodriguez RoadDublin [place] [id number] Color Nom (U) Yellow Normal Comprehensi ve Internal Medicine Work Phone: Comment on above: PATIENT WAS FASTINGP ERFORMED BY: ORTIZ [facility] Zouxpa5807 Rodriguez RoadDublin [place] [id number] Glucose Ql (U) Negative Normal Comprehens trupti Internal Medicine Work Phone: Comment on above: PATIENT WAS FASTINGP ERFORMED BY: ORTIZ [facility] Bbtdji2109 [address] RoadDublin [place] [id number] Hemoglobin Ql (U) Negative Normal Compreh ensive Internal Medicine Work Phone: Comment on above: PATIENT WAS FASTINGP ERFORMED BY: ORTIZ Ameyaaustyn Mrocgy4475 [facility] [id number] Ketones Ql (U) Negative Normal Comprehens trupti Internal Medicine Work Phone: Comment on above: PATIENT WAS FASTINGP ERFORMED BY: ORTIZ MeenaAleksandr CroweRlyeub2528 [facility] [id number] Leukocyte esterase Test strip Ql (U) Negative Normal [facility] Work Phone: Comment on above: PATIENT WAS FASTINGP ERFORMED BY: ORTIZ Crowelin6370 [facility] [id number] Microscopic observation LM Nom (Urine sed) See below: Normal [facility] Work Phone: Comment on above: Microscopic was derrick cated and was performed. PATIENT WAS FASTINGP ERFORMED BY: ORTIZ AmeyaRobert Wood Johnson University HospitalIoxhro6359 [facility] [id number] Nitrite Ql (U) Negative Normal Comprehens trupti Internal Medicine Work Phone: Comment on above: PATIENT WAS FASTINGP ERFORMED BY: ORTIZ Munguia Yxmbit2340 [facility] [id number] pH (U) 5.5 [pH] Normal 5.0-7.5 [facility] Work Phone: Comment on above: PATIENT WAS FASTINGP ERFORMED BY: ORTIZ Munguia Lkkzko9455 [facility] [id number] Protein Ql (U) 1+ Abnormal Comprehens trupti Internal Medicine Work Phone: Comment on above: PATIENT WAS FASTINGP ERFORMED BY: ORTIZ [facility]oPer[facility] Whnaja5968 [facility] [id number] Specific gravity Relative Density (U) 1.029 1 Normal 1.005-1.03 0 [facility] Work Phone: Comment on above: PATIENT WAS FASTINGP ERFORMED BY: ORTIZ [place]oJohn [place] 1436670 Exchange MetaNotesin [place] [id number] Urobilinogen Test strip mass conc (U) 0.2 mg/dL Normal 0.2-1.0 Comprehensiv e Internal Medicine Work Phone: Comment on above: PATIENT WAS FASTINGP ERFORMED BY: [facility] Ciqsyu0561 [address] Yorumla.comAtrium Health Carolinas Rehabilitation Charlottein [place] [id number] VITAMIN B-12 (CYANOCOBALAMIN ) (22378)Ordered By: Digital Experience Manager on 12-05-2015 Cobalamin (Vitamin B12) mass conc 465 pg/mL Normal 211-946 [facility] Work Phone: Comment on above: PATIENT WAS FASTINGP ERFORMED BY: ORTIZ [facility] Qqumwq7149 Rodriguez Meta[employer]in [place] [id number] Fecal Occult Blood , Office (01930)Ordered By: Gabino Bullock on 11-08-2015 Hemoglobin.gastrointes tinal Ql (St) Negative Normal [facility] Work Phone: VITAMIN B-12 (CYANOCOBALAMIN ) (83233)Ordered By: Digital Experience Manager on 08-27-2015 Cobalamin (Vitamin B12) mass conc 919 pg/mL Normal 211-946 [facility] Work Phone: Comment on above: PATIENT NOT FASTINGP ERFORMED BY: [facility] Mjtpis3021 [address] Yorumla.comFirstHealth [id number] Information: [id number] Clinical Lists Update: 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 05-26-2015 Anion gap 6 mmol/L Invalid Interpretation Code [facility] Work Phone: basophils as percent of blood leukocytes, manual count 0.5 % Invalid Interpretation Code [facility] Work Phone: BUN/Creatinine Ratio 18.8 mg/mg Invalid Interpretation Code [facility] Work Phone: Calcium 8.9 mg/dL Invalid Interpretation Code [facility] Work Phone: Chloride 106 mmol/L Invalid Interpretation Code [facility] Work Phone: CO2 31.0 mmol/L Invalid Interpretation Code [facility] Work Phone: Creatinine 0.85 mg/dL Invalid Interpretation Code [facility] Work Phone: eosinophils as percent of blood leukocytes, manual count 5.4 % High [facility] Work Phone: Erythrocytes (RBC) 4.14 10*6/uL Low [facility] Work Phone: Glucose 102 mg/dL Invalid Interpretation Code [facility] Work Phone: Hematocrit (HCT) 38.6 % Invalid Interpretation Code [facility] Work Phone: Hemoglobin (HGB) 12.6 g/dL Invalid Interpretation Code [facility] Work Phone: Lymphocytes/100 leukocytes 27.3 % Invalid Interpretation Code [facility] Work Phone: MCH 30.4 pg Invalid Interpretation Code [facility] Work Phone: MCHC 32.6 g/dL Invalid Interpretation Code [facility] Work Phone: MCV 93.2 fL Invalid Interpretation Code [facility] Work Phone: Monocytes/100 leukocytes 10.2 % High [facility] Work Phone: neutrophils, band form as percent of blood leukocytes, manual count 56.4 % Invalid Interpretation Code [facility] Work Phone: Platelets 162 10*3/mm3 Invalid Interpretation Code [facility] Work Phone: PMV by Bernard 9.6 fL Invalid Interpretation Code [facility] Work Phone: Potassium 4.3 mmol/L Invalid Interpretation Code [facility] Work Phone: RDW-CA 12.9 % Invalid Interpretation Code [facility] Work Phone: Sodium 143 mmol/L Invalid Interpretation Code [facility] Work Phone: Urea nitrogen 16 mg/dL Invalid Interpretation Code [facility] Work Phone: WBC (Leukocytes) 6.3 10*3/uL Invalid Interpretation Code [facility] Work Phone: Clinical Lists Update: 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 04-26-2015 Cholesterol 136 mg/dL Invalid Interpretation Code [facility] Work Phone: HDL Cholesterol 49 mg/dL Invalid Interpretation Code [facility] Work Phone: LDL Cholesterol 66 mg/dL Invalid Interpretation Code [facility] Work Phone: Triglyceride 105 mg/dL Invalid Interpretation Code [facility] Work Phone: very low density lipoproteins 21 mg/dL Invalid Interpretation Code [facility] Work Phone: CBC W/AUTO DIFF WBC ([id number])O rdered By: Digital Experience Manager on 10-19-2014 Basophils #/vol (Bld) 0.0 {x10E3/uL} Normal 0.0-0.2 [facility] Work Phone: Comment on above: PATIENT WAS FASTINGP ERFORMED BY: HipvanLovelace Rehabilitation HospitalCfsjjp9296 [facility] [id number] Information: [id number] Basophils/100 WBC (Bld) 1 % Normal [facility] Work Phone: Comment on above: PATIENT WAS FASTINGP ERFORMED BY: HipvanRobert Wood Johnson University HospitalZhqnly[address] [place] [address] [id number] Information: 245161,[id number] Eosinophils #/vol (Bld) 0.2 {x10E3/uL} Normal 0.0-0.4 [facility] Work Phone: Comment on above: PATIENT WAS FASTINGP ERFORMED BY: HipvanRobert Wood Johnson University HospitalDgnmsw7509 [facility] [id number] Information: [id number] Eosinophils/100 WBC (Bld) 5 % Normal [facility] Work Phone: Comment on above: PATIENT WAS FASTINGP ERFORMED BY: [facility]6370 [facility] [id number] Information: [id number] Erythrocyte distribution width Ratio (RBC) 13.5 % Normal 12.3-15.4 [facility] Work Phone: Comment on above: PATIENT WAS FASTINGP ERFORMED BY: ORTIZ RobledoJohn Ville [id number] [facility] [id number] Information: [id number] Hematocrit Volume Fraction (Bld) 39.1 % Normal 34.0-46.6 [facility] Work Phone: Comment on above: PATIENT WAS FASTINGP ERFORMED BY: [address] [id number] Information: [id number] Hemoglobin mass conc (Bld) 12.9 g/dL Normal 11.1-15.9 [facility] Work Phone: Comment on above: PATIENT WAS FASTINGP ERFORMED BY: [address] [id number] Information: 442117,[id number] Immature granulocytes #/vol (Bld) 0.0 {x10E3/uL} Normal 0.0-0.1 [facility] Work Phone: Comment on above: PATIENT WAS FASTINGP ERFORMED BY: [address] [id number] Information: [id number] Immature granulocytes/100 WBC (Bld) 0 % Normal [facility] Work Phone: Comment on above: PATIENT WAS FASTINGP ERFORMED BY: [address] [id number] Information: [id number] Lymphocytes #/vol (Bld) 1.2 {x10E3/uL} Normal 0.7-3.1 [facility] Work Phone: Comment on above: PATIENT WAS FASTINGP ERFORMED BY: [address] [id number] Information: [id number] Lymphocytes/100 WBC (Bld) 25 % Normal [facility] Work Phone: Comment on above: PATIENT WAS FASTINGP ERFORMED BY: ORTIZ [facility]6370 [facility] [id number] Information: 777160,[id number] MCH Entitic mass (RBC) 29.8 pg Normal 26.6-33.0 Co [facility] Internal Medicine Work Phone: Comment on above: PATIENT WAS FASTINGP ERFORMED BY: ORTIZ [address] [id number] Information: 720603,[id number] MCHC mass conc (RBC) 33.0 g/dL Normal 31.5-35.7 [facility] Internal Medicine Work Phone: Comment on above: PATIENT WAS FASTINGP ERFORMED BY: ORTIZ [place] [id number] [facility] [id number] Information: [id number],[id number] MCV Entitic volume (RBC) 90 fL Normal 79-97 [facility] Work Phone: Comment on above: PATIENT WAS FASTINGP ERFORMED BY: ORTIZ [place] [id number] [facility] [id number] Information: [id number],[id number] Monocytes #/vol (Bld) 0.5 {x10E3/uL} Normal 0.1-0.9 [facility] Work Phone: Comment on above: PATIENT WAS FASTINGP ERFORMED BY: ORTIZ [place] [id number] [facility] [id number] Information: [id number],[id number] Monocytes/100 WBC (Bld) 10 % Normal [facility] Work Phone: Comment on above: PATIENT WAS FASTINGP ERFORMED BY: [place] [id number] [facility] [id number] Information: [id number],[id number] Neutrophils #/vol (Bld) 2.9 {x10E3/uL} Normal 1.4-7.0 [facility] Work Phone: Comment on above: PATIENT WAS FASTINGP ERFORMED BY: [facility]6370 [facility] [id number] Information: 101301,[id number] Neutrophils/100 WBC (Bld) 59 % Normal [facility] Work Phone: Comment on above: PATIENT WAS FASTINGP ERFORMED BY: [facility]6370 [facility] [id number] Information: [id number] Platelets #/vol (Bld) 196 {x10E3/uL} Normal 150-379 [facility] Work Phone: Comment on above: PATIENT WAS FASTINGP ERFORMED BY: [place] [id number] [facility] [id number] Information: [id number],[id number] RBC #/vol (Bld) 4.33 {x10E6/uL} Normal 3.77-5.28 [facility] Internal Medicine Work Phone: Comment on above: PATIENT WAS FASTINGP ERFORMED BY: [facility]6370 [facility] [id number] Information: 820956,[id number] WBC #/vol (Bld) 4.9 {x10E3/uL} Normal 3.4-10.8 [facility] Internal Medicine Work Phone: Comment on above: PATIENT WAS FASTINGP ERFORMED BY: [place] [id number] [facility] [id number] Information: [id number] LIPID PANEL (81499)Ordered B y: Digital Experience Manager on 10-19-2014 Cholesterol in HDL mass conc 47 mg/dL Normal [facility] Work Phone: Comment on above: According to ATP-III Guidelines, HDL-C >59 mg/dL is considered anegative risk factor for CHD. PATIENT WAS FASTINGP ERFORMED BY: [facility]6370 [facility] [id number] Cholesterol in LDL mass conc 148 mg/dL Abnormal 0-99 [facility] Work Phone: Comment on above: PATIENT WAS FASTINGP ERFORMED BY: ORTIZ LabAleksandr CroweJzwuyn1915 Rodriguez RoadDublin [place] [id number] Cholesterol in LDL/Cholesterol in HDL mass ratio 3.1 {ratio_units} Normal 0.0-3.2 [facility] Work Phone: Comment on above: LDL/HDL Ratio Men Wo men 1/2 Avg.Risk 1.0 1.5 Avg.Risk 3.6 3.2 2X Avg.Risk 6.2 5.0 3X Avg.Risk 8.0 6.1 PATIENT WAS FASTINGP ERFORMED BY: ORTIZ LabAleksandr CroweMetrbn3805 Rodriguez RoadDublin [place] [id number] Cholesterol in VLDL mass conc 36 mg/dL Normal 5-40 [facility] Work Phone: Comment on above: PATIENT WAS FASTINGP ERFORMED BY: ORTIZ LabAleksandr CroweUsyaix1693 [address] Yorumla.comDublin [place] [id number] Cholesterol mass conc 231 mg/dL Abnormal 100-199 Com prehensive Internal Medicine Work Phone: Comment on above: PATIENT WAS FASTINGP ERFORMED BY: ORTIZ LabAleksandr CroweQvsgtl5072 [address] Yorumla.comDublin [place] [id number] Triglyceride mass conc 179 mg/dL Abnormal 0-149 Co [facility] Work Phone: Comment on above: PATIENT WAS FASTINGP ERFORMED BY: ORTIZ LabAleksandr Tbzntq4188 [address] [facility] [place] [id number] METABOLIC PANEL, COMPREHENSI VE (54055)Ordered By: Digital Experience Manager on 10-19-2014 Albumin mass conc 4.3 g/dL Normal 3.5-4.8 Compreh ensive Internal Medicine Work Phone: Comment on above: PATIENT WAS FASTINGP ERFORMED BY: ORTIZ [facility] Nyyauj9746 Rodriguez RoadDublin [place] [id number] Albumin/Globulin mass ratio 2.2 {ratio} Normal 1.1-2.5 [facility] Work Phone: Comment on above: PATIENT WAS FASTINGP ERFORMED BY: ORTIZ [facility] Sdnykt1217 Rodriguez Roadblin [place] [id number] ALP enzyme act/vol 73 [iU]/L Normal 39-117 [facility] Internal Medicine Work Phone: Comment on above: PATIENT WAS FASTINGP ERFORMED BY: ORTIZ [facility] Dccwmg9495 [address] RoadDublin [place] [id number] ALT enzyme act/vol 8 [iU]/L Normal 0-32 [facility] Internal Medicine Work Phone: Comment on above: PATIENT WAS FASTINGP ERFORMED BY: [facility] Nvtghq9772 [address] Roadblin [place] [id number] AST enzyme act/vol 15 [iU]/L Normal 0-40 [facility] Internal Medicine Work Phone: Comment on above: PATIENT WAS FASTINGP ERFORMED BY: ORTIZ [facility] Smksyl8679 [address] Roadblin [place] [id number] Bilirubin mass conc 0.3 mg/dL Normal 0.0-1.2 Compr ensive Internal Medicine Work Phone: Comment on above: PATIENT WAS FASTINGP ERFORMED BY: [facility] Erknxr4615 [address] Roadblin [place] [id number] Calcium mass conc 9.6 mg/dL Normal 8.7-10.3 Compreh [facility]ive Internal Medicine Work Phone: Comment on above: PATIENT WAS FASTINGP ERFORMED BY: [facility] Njczkx2529 [address] Roadblin [place] [id number] Chloride molar conc 99 mmol/L Normal 97-108 Compr [facility] Internal Medicine Work Phone: Comment on above: PATIENT WAS FASTINGP ERFORMED BY: [facility] Rnymtd5467 [address] RoadDublin [place] [id number] CO2 molar conc 27 mmol/L Normal 18-29 Comprehens trupti Internal Medicine Work Phone: Comment on above: PATIENT WAS FASTINGP ERFORMED BY: [facility] Mlgzcs5170 [address] RoadDublin [place] [id number] Creatinine mass conc 0.91 mg/dL Normal 0.57-1.00 Comp [facility] Work Phone: Comment on above: PATIENT WAS FASTINGP ERFORMED BY: [facility] Xulped2526 [address] [facility] Hospitalblin [place] [id number] GFR/1.73 sq M predicted among blacks CKD-EPI vol rate/area (S/P/Bld) 71 mL/min/1.73 Normal [facility] Work Phone: Comment on above: PATIENT WAS FASTINGP ERFORMED BY: [facility] Npdslm8418 [address] [facility] Hospitalblin [place] [id number] GFR/1.73 sq M predicted among non-blacks CKD-EPI vol rate/area (S/P/Bld) 62 mL/min/1.73 Normal Comprehensiv e Internal Medicine Work Phone: Comment on above: PATIENT WAS FASTINGP ERFORMED BY: [facility] Utpppi4931 [address] [facility] [id number] Globulin mass conc (S) 2.0 g/dL Normal 1.5-4.5 Co mprehensive Internal Medicine Work Phone: Comment on above: PATIENT WAS FASTINGP ERFORMED BY: [facility] Imgxdk7966 [address] [facility]in [place] [id number] Glucose mass conc 82 mg/dL Normal 65-99 Compreh ensive Internal Medicine Work Phone: Comment on above: PATIENT WAS FASTINGP ERFORMED BY: [facility] Qdkweg0384 [facility] [place] [id number] Potassium molar conc 4.6 mmol/L Normal 3.5-5.2 Comp rehensive Internal Medicine Work Phone: Comment on above: PATIENT WAS FASTINGP ERFORMED BY: [facility] Glzqdr2069 [address] [facility]in [place] [id number] Protein mass conc 6.3 g/dL Normal 6.0-8.5 Compreh ensive Internal Medicine Work Phone: Comment on above: PATIENT WAS FASTINGP ERFORMED BY: [facility] Blimec8202 [address] [facility] [place] [id number] Sodium molar conc 141 mmol/L Normal 134-144 Compreh ensive Internal Medicine Work Phone: Comment on above: PATIENT WAS FASTINGP ERFORMED BY: [facility] Omoses5698 Rodriguez RoadDublin [place] [id number] Urea nitrogen mass conc 11 mg/dL Normal 8-27 [facility] Work Phone: Comment on above: PATIENT WAS FASTINGP ERFORMED BY: [facility] Mzxhli2343 [address] RoadDublin [place] [id number] Urea nitrogen/Creatinine mass ratio 12 mg/mg Normal 11-26 [facility] Work Phone: Comment on above: PATIENT WAS FASTINGP ERFORMED BY: [facility] Xtwvym1779 [address] RoadDublin [place] [id number] MICROALBUMINOrdered By: SmartyContent em Lead Athlete on 10-19-2014 Albumin DL <= 20 mg/L mass conc (U) 10.7 ug/mL Normal 0.0-17.0 [facility] Work Phone: Comment on above: PATIENT WAS FASTINGP ERFORMED BY: [facility] Asudqy8940 [address] RoadDublin [place] [id number] Albumin/Creatinine mass ratio (U) 8.1 {mg/g_creat} Normal 0.0-30.0 [facility] Work Phone: Comment on above: PATIENT WAS FASTINGP ERFORMED BY: LabKellie Czmotf7423 Rodriguez RoadDublin [place] [id number] Creatinine mass conc (U) 132.3 mg/dL Normal 15.0-278.0 [facility] Work Phone: Comment on above: PATIENT WAS FASTINGP ERFORMED BY: [facility] Lsnxer2578 [address] RoadDublin [place] [id number] TSH ([id number])Ordered By: SmartyContente m Lead Athlete on 10-19-2014 Thyrotropin Qn 1.170 {uIU/mL} Normal 0.450-4.50 0 [facility] Work Phone: Comment on above: PATIENT WAS FASTINGP ERFORMED BY: [facility] Pduojh9396 [address] RoadDublin [place] [id number] URINALYSIS, W/ MICRO ([id number]) Ordered By: Digital Experience Manager on 10-19-2014 Appearance Nom (U) Clear Normal Compre hensive Internal Medicine Work Phone: Comment on above: PATIENT WAS FASTINGP ERFORMED BY: ORTIZ Crowelin6370 [address] RoadDublin [place] [id number] Bilirubin Ql (U) Negative Normal Comprehe nsive Internal Medicine Work Phone: Comment on above: PATIENT WAS FASTINGP ERFORMED BY: ORTIZ Crowelin6370 [address] RoadDublin [place] [id number] Color Nom (U) Yellow Normal Comprehensi ve Internal Medicine Work Phone: Comment on above: PATIENT WAS FASTINGP ERFORMED BY: ORTIZ LabAleksandr CroweXueepn6928 [address] RoadDublin [place] [id number] Glucose Ql (U) Negative Normal Comprehens trupti Internal Medicine Work Phone: Comment on above: PATIENT WAS FASTINGP ERFORMED BY: ORTIZ Crowelin6370 [address] RoadDublin [place] [id number] Hemoglobin Ql (U) Negative Normal Compreh ensive Internal Medicine Work Phone: Comment on above: PATIENT WAS FASTINGP ERFORMED BY: ORTIZ Crowelin6370 [address] RoadDublin [place] [id number] Ketones Ql (U) Negative Normal Comprehens trupti Internal Medicine Work Phone: Comment on above: PATIENT WAS FASTINGP ERFORMED BY: ORTIZ Crowelin6370 [address] RoadDublin [place] [id number] Leukocyte esterase Test strip Ql (U) Negative Normal [facility] Work Phone: Comment on above: PATIENT WAS FASTINGP ERFORMED BY: ORTIZ LabAleksandr CrowePcbvap1781 Rodriguez RoadDublin [place] [id number] Microscopic observation LM Nom (Urine sed) See below: Normal [facility] Work Phone: Comment on above: Microscopic was derrick cated and was performed. PATIENT WAS FASTINGP ERFORMED BY: ORTIZ LabAleksandr CroweGtpjfs7204 Rodriguez RoadDublin [place] [id number] Microscopic observation LM Nom (Urine sed) MICRON Normal [facility] Work Phone: Comment on above: Microscopic follows if indicated. PATIENT WAS FASTINGP ERFORMED BY: ORTIZ [facility] Obgrbc1805 Rodriguez RoadDublin [place] [id number] Nitrite Ql (U) Negative Normal Comprehens trupti Internal Medicine Work Phone: Comment on above: PATIENT WAS FASTINGP ERFORMED BY: ORTIZ [facility] Jzdqem6731 Rodriguez RoadDublin [place] [id number] pH (U) 7.0 [pH] Normal 5.0-7.5 [facility] Work Phone: Comment on above: PATIENT WAS FASTINGP ERFORMED BY: CB [facility] Rqeksv0168 [address] RoadDublin [place] [id number] Protein Ql (U) Trace Normal Comprehens trupti Internal Medicine Work Phone: Comment on above: PATIENT WAS FASTINGP ERFORMED BY: ORTIZ [facility] Bxiqku1958 [address] RoadDublin [place] [id number] Specific gravity Relative Density (U) 1.017 1 Normal 1.005-1.03 0 [facility] Work Phone: Comment on above: PATIENT WAS FASTINGP ERFORMED BY: ORTIZ [facility] Htjaic9498 [address] RoadDublin [place] [id number] Urobilinogen Test strip mass conc (U) 0.2 mg/dL Normal 0.0-1.9 Comprehensiv e Internal Medicine Work Phone: Comment on above: PATIENT WAS FASTINGP ERFORMED BY: CB [facility] Qojtlh1933 [address] RoadDublin [place] [id number] Vitamin D Hydroxy (55283)Ord ered By: Digital Experience Manager on 10-19-2014 25-Hydroxyvitamin D2+25-Hydroxyvitamin D3 mass conc 39.6 ng/mL Normal 30.0-100.0 [facility] Work Phone: Comment on above: Vitamin D deficiency has been defined by the [place] of[place]icine and an Endocrine Society practice guideline as alevel of serum 25-OH vitamin D less than 20 ng/mL (1,2).The Endocrine Society went on to further define vitamin Dinsufficiency as a level between 21 and 29 ng/mL (2).1. IOM ([place] of Medicine). 2010. Dietary reference intakes for calcium and D. [place]: The National Academies Press.2. Allie MF, Emile PONCE, Natalie POOLE, et al. Evaluation, treatment, and prevention of vitamin D deficiency: an Endocrine Society clinical practice guideline. JCEM. 2010; 96(7):1911-30. PATIENT WAS FASTINGP ERFORMED BY: LabCoRobert Wood Johnson University HospitalJxdpzd4326 [facility] [id number] FECAL OCCULT HGB ASSAY- tube s sent home (73028)Ordered By: Cady Huber on 10-12-2014 Hemoglobin.gastrointes tinal Ql (St) Negative Normal [facility] Work Phone: Office Visit: [facility] 10-10-19 15 cardiac risk group C Invalid Interpretation Code ENJORE Work Phone: General cardiovascular disease 10Y risk [#] Sublimity.D'Agostallie N/A Invalid Interpretation Code ENJORE Work Phone: Replaced Document: Escobar Watsonon 10-10-2014 electrocardiogram interpretation Sinus Bradycardia WITHIN NORMAL LIMITS Invalid Interpretation Code ENJORE Work Phone: GE use only - for LinkLogic import when terms are not otherwise specified 438 ms Invalid Interpretation Code ENJORE Work Phone: P wave axis, electrocardiogram 33 deg Invalid Interpretation Code ENJORE Work Phone: PA interval, electrocardiogram 164 ms Invalid Interpretation Code ENJORE Work Phone: Pulse (Heart Rate) 55 /min Invalid Interpretation Code ENJORE Work Phone: QRS axis, electrocardiogram 7 deg Invalid Interpretation Code ENJORE Work Phone: QRS duration, electrocardiogram 90 ms Invalid Interpretation Code ENJORE Work Phone: QT interval, electrocardiogram new path ms Invalid Interpretation Code ENJORE Work Phone: T wave axis, electrocardiogram 41 deg Invalid Interpretation Code ENJORE Work Phone: CBC WITH MANUAL DIFF (59217) Ordered By: Digital Experience Manager on 06-26-2014 Basophils #/vol (Bld) 0.0 {x10E3/uL} Normal 0.0-0.2 [facility] Work Phone: Comment on above: PATIENT WAS FASTINGP ERFORMED BY: LabCoRobert Wood Johnson University HospitalDrpzfz3721 [facility] [id number] Information: [id number] Basophils/100 WBC (Bld) 1 % Normal [facility] Work Phone: Comment on above: PATIENT WAS FASTINGP ERFORMED BY: LabCoRobert Wood Johnson University HospitalTscsre1541 [facility] [id number] Information: [id number] Eosinophils #/vol (Bld) 0.2 {x10E3/uL} Normal 0.0-0.4 [facility] Work Phone: Comment on above: PATIENT WAS FASTINGP ERFORMED BY: LabMarlette [facility] Hospital6370 [facility] [id number] Information: [id number] Eosinophils/100 WBC (Bld) 3 % Normal [facility] Work Phone: Comment on above: PATIENT WAS FASTINGP ERFORMED BY: LabMarlette [facility] Hospital6370 [facility] [id number] Information: [id number] Erythrocyte distribution width Ratio (RBC) 13.4 % Normal 12.3-15.4 [facility] Work Phone: Comment on above: PATIENT WAS FASTINGP ERFORMED BY: LabCo Hhjqoc0698 [facility] [id number] Information: [id number] Hematocrit Volume Fraction (Bld) 40.5 % Normal 34.0-46.6 [facility] Work Phone: Comment on above: PATIENT WAS FASTINGP ERFORMED BY: LabCo Rcjdpi2304 [facility] [id number] Information: [id number] Hemoglobin mass conc (Bld) 13.1 g/dL Normal 11.1-15.9 [facility] Work Phone: Comment on above: PATIENT WAS FASTINGP ERFORMED BY: LabMarlette [facility] Hospital6370 [facility] [id number] Information: [id number] Immature granulocytes #/vol (Bld) 0.0 {x10E3/uL} Normal 0.0-0.1 [facility] Work Phone: Comment on above: PATIENT WAS FASTINGP ERFORMED BY: [address] [id number] Information: [id number] Immature granulocytes/100 WBC (Bld) 0 % Normal [facility] Work Phone: Comment on above: PATIENT WAS FASTINGP ERFORMED BY: [address] [id number] Information: [id number] Lymphocytes #/vol (Bld) 1.1 {x10E3/uL} Normal 0.7-3.1 [facility] Work Phone: Comment on above: PATIENT WAS FASTINGP ERFORMED BY: [place] 9916570 [facility] [id number] Information: [id number] Lymphocytes/100 WBC (Bld) 21 % Normal [facility] Work Phone: Comment on above: PATIENT WAS FASTINGP ERFORMED BY: [address] [id number] Information: [id number] MCH Entitic mass (RBC) 29.4 pg Normal 26.6-33.0 [facility] Internal Medicine Work Phone: Comment on above: PATIENT WAS FASTINGP ERFORMED BY: [place] 9916570 [facility] [id number] Information: [id number],[id number] MCHC mass conc (RBC) 32.3 g/dL Normal 31.5-35.7 [facility] Internal Medicine Work Phone: Comment on above: PATIENT WAS FASTINGP ERFORMED BY: ORTIZ Ameya Powjic1171 [facility] [id number] Information: [id number] MCV Entitic volume (RBC) 91 fL Normal 79-97 [facility] Work Phone: Comment on above: PATIENT WAS FASTINGP ERFORMED BY: [address] [id number] Information: [id number] Monocytes #/vol (Bld) 0.5 {x10E3/uL} Normal 0.1-0.9 [facility] Work Phone: Comment on above: PATIENT WAS FASTINGP ERFORMED BY: ORTIZ [address] [id number] Information: [id number] Monocytes/100 WBC (Bld) 10 % Normal [facility] Work Phone: Comment on above: PATIENT WAS FASTINGP ERFORMED BY: ORTIZ [address] [id number] Information: [id number] Neutrophils #/vol (Bld) 3.7 {x10E3/uL} Normal 1.4-7.0 [facility] Work Phone: Comment on above: PATIENT WAS FASTINGP ERFORMED BY: [address] [id number] Information: [id number],[id number] Neutrophils/100 WBC (Bld) 65 % Normal [facility] Work Phone: Comment on above: PATIENT WAS FASTINGP ERFORMED BY: [address] [id number] Information: [id number] Platelets #/vol (Bld) 198 {x10E3/uL} Normal 150-379 [facility] Work Phone: Comment on above: PATIENT WAS FASTINGP ERFORMED BY: ORTIZ Hou Qduocp0917 [facility] [id number] Information: [id number],[id number] RBC #/vol (Bld) 4.45 {x10E6/uL} Normal 3.77-5.28 [facility] Internal Medicine Work Phone: Comment on above: PATIENT WAS FASTINGP ERFORMED BY: ORTIZ [facility]oPer[facility] Vctrzl6075 [facility] [id number] Information: [id number] WBC #/vol (Bld) 5.6 {x10E3/uL} Normal 3.4-10.8 [facility] Internal Medicine Work Phone: Comment on above: PATIENT WAS FASTINGP ERFORMED BY: ORTIZ [facility]oPer[facility] Nuznka9295 [facility] [id number] Information: [id number] LIPID PANEL (39728)Ordered B y: Digital Experience Manager on 06-26-2014 Cholesterol in HDL mass conc 46 mg/dL Normal [facility] Work Phone: Comment on above: According to ATP-III Guidelines, HDL-C >59 mg/dL is considered anegative risk factor for CHD. PATIENT WAS FASTINGP ERFORMED BY: ORTIZ Hou Cnbhbm2643 [facility] [id number] Cholesterol in LDL mass conc 130 mg/dL Abnormal 0-99 [facility] Work Phone: Comment on above: PATIENT WAS FASTINGP ERFORMED BY: [facility]6370 [facility] [id number] Cholesterol in LDL/Cholesterol in HDL mass ratio 2.8 {ratio_units} Normal 0.0-3.2 [facility] Work Phone: Comment on above: LDL/HDL Ratio Men Wo men 1/2 Avg.Risk 1.0 1.5 Avg.Risk 3.6 3.2 2X Avg.Risk 6.2 5.0 3X Avg.Risk 8.0 6.1 PATIENT WAS FASTINGP ERFORMED BY: [place] 9916570 [facility] [id number] Cholesterol in VLDL mass conc 41 mg/dL Abnormal 5-40 [facility] Work Phone: Comment on above: PATIENT WAS FASTINGP ERFORMED BY: ORTIZ LabAelksandr CroweGqmokl6583 [facility] [id number] Cholesterol mass conc 217 mg/dL Abnormal 100-199 Com prehensive Internal Medicine Work Phone: Comment on above: PATIENT WAS FASTINGP ERFORMED BY: ORTIZ [facility] Pbgjjh2843 [facility] [id number] Triglyceride mass conc 203 mg/dL Abnormal 0-149 [facility] Work Phone: Comment on above: PATIENT WAS FASTINGP ERFORMED BY: ORTIZ LabAleksandr CroweIfoois9859 [facility] [id number] METABOLIC PANEL, COMPREHENSI VE (75719)Ordered By: Digital Experience Manager on 06-26-2014 Albumin mass conc 4.0 g/dL Normal 3.5-4.8 Compreh [facility] Internal Medicine Work Phone: Comment on above: PATIENT WAS FASTINGP ERFORMED BY: ORTIZ [facility] Xynmjl3333 [facility] [id number] Albumin/Globulin mass ratio 1.7 {ratio} Normal 1.1-2.5 [facility] Internal Medicine Work Phone: Comment on above: PATIENT WAS FASTINGP ERFORMED BY: ORTIZ [facility] Tqwtpu6474 [facility] [id number] ALP enzyme act/vol 80 [iU]/L Normal 39-117 [facility]capital [facility] Work Phone: Comment on above: PATIENT WAS FASTINGP ERFORMED BY: ORTIZ [facility] Yplcch8063 [address] [facility] [id number] ALT enzyme act/vol 8 [iU]/L Normal 0-32 [facility] Internal Medicine Work Phone: Comment on above: PATIENT WAS FASTINGP ERFORMED BY: ORTIZ [facility] Degygk9049 [facility] [id number] AST enzyme act/vol 10 [iU]/L Normal 0-40 Compre [facility] Internal Medicine Work Phone: Comment on above: PATIENT WAS FASTINGP ERFORMED BY: ORTIZ LabCoaustyn ChesterEyzhmh1368 [address] [facility] [id number] Bilirubin mass conc 0.3 mg/dL Normal 0.0-1.2 Compr ensive Internal Medicine Work Phone: Comment on above: PATIENT WAS FASTINGP ERFORMED BY: ORTIZ LabCoaustyn ChesterAncffw7420 [address] [facility] [id number] Calcium mass conc 9.4 mg/dL Normal 8.6-10.2 Compreh [facility] centerive Internal Medicine Work Phone: Comment on above: PATIENT WAS FASTINGP ERFORMED BY: ORTIZ Chester6370 [facility] [id number] Chloride molar conc 100 mmol/L Normal 97-108 Compr [facility] Internal Medicine Work Phone: Comment on above: PATIENT WAS FASTINGP ERFORMED BY: ORTIZ Nilda Crowelin6370 [facility] [id number] CO2 molar conc 26 mmol/L Normal 18-29 Comprehens trupti Internal Medicine Work Phone: Comment on above: PATIENT WAS FASTINGP ERFORMED BY: ORTIZ Chester6370 [facility] [id number] Creatinine mass conc 0.80 mg/dL Normal 0.57-1.00 [facility] Internal Medicine Work Phone: Comment on above: PATIENT WAS FASTINGP ERFORMED BY: ORTIZ [facility] Nqqtbf3144 [facility] [id number] GFR/1.73 sq M predicted among blacks CKD-EPI vol rate/area (S/P/Bld) 83 mL/min/1.73 Normal [facility] Work Phone: Comment on above: PATIENT WAS FASTINGP ERFORMED BY: ORTIZ [facility] Jntamb3979 [facility] [id number] GFR/1.73 sq M predicted among non-blacks CKD-EPI vol rate/area (S/P/Bld) 72 mL/min/1.73 Normal Comprehensiv e Internal Medicine Work Phone: Comment on above: PATIENT WAS FASTINGP ERFORMED BY: ORTIZ Ameyaaustyn CroweSobhgi7587 [address] [facility] [place] [id number] Globulin mass conc (S) 2.3 g/dL Normal 1.5-4.5 Co mprehensive Internal Medicine Work Phone: Comment on above: PATIENT WAS FASTINGP ERFORMED BY: ORTIZ Nilda Piujda1135 [address] [facility] [place] [id number] Glucose mass conc 90 mg/dL Normal 65-99 Compreh ensive Internal Medicine Work Phone: Comment on above: PATIENT WAS FASTINGP ERFORMED BY: ORTIZ MeenaAleksandr CroweVivpzn2011 [address] [facility] [id number] Potassium molar conc 4.0 mmol/L Normal 3.5-5.2 Comp rehensive Internal Medicine Work Phone: Comment on above: PATIENT WAS FASTINGP ERFORMED BY: ORTIZ Crowelin6370 [address] [facility] [id number] Protein mass conc 6.3 g/dL Normal 6.0-8.5 Compreh ensive Internal Medicine Work Phone: Comment on above: PATIENT WAS FASTINGP ERFORMED BY: ORTIZ Ameyaaustyn CroweEciiuo0993 [facility] [id number] Sodium molar conc 142 mmol/L Normal 134-144 Compreh ensive Internal Medicine Work Phone: Comment on above: PATIENT WAS FASTINGP ERFORMED BY: ORTIZ MeenaAleksandr CroweBbizin9135 [address] [facility] [id number] Urea nitrogen mass conc 10 mg/dL Normal 8-27 [facility] Work Phone: Comment on above: PATIENT WAS FASTINGP ERFORMED BY: ORTIZ LabAleksandr CroweTotcuf2098 [address] [facility] [id number] Urea nitrogen/Creatinine mass ratio 13 mg/mg Normal 11-26 [facility] Work Phone: Comment on above: PATIENT WAS FASTINGP ERFORMED BY: ORTIZ LabAleksandr CroweDuhmyo0514 [facility] [place] [id number] MICROALBUMINOrdered By: Syst em Lead Athlete on 06-26-2014 Albumin DL <= 20 mg/L mass conc (U) 12.3 ug/mL Normal 0.0-17.0 [facility] Work Phone: Comment on above: PATIENT WAS FASTINGP ERFORMED BY: ORTIZ [facility] Omnawl6741 Rodriguez Roadblin [place] [id number] Albumin/Creatinine mass ratio (U) 7.0 {mg/g_creat} Normal 0.0-30.0 [facility] Work Phone: Comment on above: PATIENT WAS FASTINGP ERFORMED BY: ORTIZ [facility] Oepdhe8432 Rodriguez Roadblin [place] [id number] Creatinine mass conc (U) 176.5 mg/dL Normal 15.0-278.0 [facility] Work Phone: Comment on above: PATIENT WAS FASTINGP ERFORMED BY: ORTIZ [facility] Trdhoe3033 Rodriguez RoadFirstHealth [id number] TSH ([id number])Ordered By: Syste m Lead Athlete on 06-26-2014 Thyrotropin Qn 1.220 {uIU/mL} Normal 0.450-4.50 0 [facility] Work Phone: Comment on above: PATIENT WAS FASTINGP ERFORMED BY: ORTIZ [facility] Kjruzh8585 [address] [facility] [place] [id number] URINALYSIS, W/ MICRO ([id number]) Ordered By: Digital Experience Manager on 06-26-2014 Appearance Nom (U) Clear Normal Compre hensive Internal Medicine Work Phone: Comment on above: PATIENT WAS FASTINGP ERFORMED BY: ORTIZ [facility] Iaxzok9768 [address] RoadDublin [place] [id number] Bilirubin Ql (U) Negative Normal Comprehe nsive Internal Medicine Work Phone: Comment on above: PATIENT WAS FASTINGP ERFORMED BY: ORTIZ [facility] Unnkxk9922 [address] Roadblin [place] [id number] Color Nom (U) Yellow Normal Comprehensi ve Internal Medicine Work Phone: Comment on above: PATIENT WAS FASTINGP ERFORMED BY: CB [facility] Sgjcil3762 [address] RoadDublin [place] [id number] Glucose Ql (U) Negative Normal Comprehens trupti Internal Medicine Work Phone: Comment on above: PATIENT WAS FASTINGP ERFORMED BY: CB [facility] Qxclam8491 [address] RoadDublin [place] [id number] Hemoglobin Ql (U) Negative Normal Compreh ensive Internal Medicine Work Phone: Comment on above: PATIENT WAS FASTINGP ERFORMED BY: ORTIZ [facility] Bfllma0615 [address] RoadDublin [place] [id number] Ketones Ql (U) Negative Normal Comprehens trupti Internal Medicine Work Phone: Comment on above: PATIENT WAS FASTINGP ERFORMED BY: ORTIZ [facility] Eilarx4278 [address] RoadDublin [place] [id number] Leukocyte esterase Test strip Ql (U) Negative Normal [facility] Work Phone: Comment on above: PATIENT WAS FASTINGP ERFORMED BY: ORTIZ [facility] Mnxgmk0062 [address] RoadDublin [place] [id number] Microscopic observation LM Nom (Urine sed) See below: Normal [facility] Work Phone: Comment on above: Microscopic was derrick cated and was performed. PATIENT WAS FASTINGP ERFORMED BY: ORTIZ [facility] Qrlkvt3114 [address] RoadDublin [place] [id number] Microscopic observation LM Nom (Urine sed) MICRON Normal [facility] Work Phone: Comment on above: Microscopic follows if indicated. PATIENT WAS FASTINGP ERFORMED BY: CB [facility] Qgbqyn8019 [address] RoadDublin [place] [id number] Nitrite Ql (U) Negative Normal Comprehens trupti Internal Medicine Work Phone: Comment on above: PATIENT WAS FASTINGP ERFORMED BY: CB [facility] Uleyjf0691 [address] RoadDublin [place] [id number] pH (U) 5.5 [pH] Normal 5.0-7.5 [facility] Work Phone: Comment on above: PATIENT WAS FASTINGP ERFORMED BY: [facility] Baomhk6653 [address] RoadDublin [place] [id number] Protein Ql (U) Negative Normal Comprehens trupti Internal Medicine Work Phone: Comment on above: PATIENT WAS FASTINGP ERFORMED BY: [facility] Ggcxji0876 [address] RoadDublin [place] [id number] Specific gravity Relative Density (U) 1.020 1 Normal 1.005-1.03 0 [facility] Work Phone: Comment on above: PATIENT WAS FASTINGP ERFORMED BY: CB [facility] Dybrya2397 [address] RoadDublin [place] [id number] Urobilinogen Test strip mass conc (U) 0.2 mg/dL Normal 0.0-1.9 Comprehensiv e Internal Medicine Work Phone: Comment on above: PATIENT WAS FASTINGP ERFORMED BY: [facility] Xfuruf5798 [address] RoadDublin [place] [id number] Vitamin D Hydroxy (07053)Ord ered By: Digital Experience Manager on 06-26-2014 25-Hydroxyvitamin D2+25-Hydroxyvitamin D3 mass conc 38.9 ng/mL Normal 30.0-100.0 [facility] Work Phone: Comment on above: Vitamin D deficiency has been defined by the [place] ofMedicine and an Endocrine Society practice guideline as alevel of serum 25-OH vitamin D less than 20 ng/mL (1,2).The Endocrine Society went on to further define vitamin Dinsufficiency as a level between 21 and 29 ng/mL (2).1. IOM ([place] of Medicine). 2010. Dietary reference intakes for calcium and D. [place]: The National Academies Press.2. Allie MF, Emile NC, Natalie POOLE, et al. Evaluation, treatment, and prevention of vitamin D deficiency: an Endocrine Society clinical practice guideline. JCEM. 2010; 96(7):1911-30. PATIENT WAS FASTINGP ERFORMED BY: CB [facility] Sdqyfn3419 [address] RoadDublin [place] [id number] URINE IBRAHIMA CULTURE-IDENTIFICA TN (37006)Ordered By: Digital Experience Manager on 04-17-2014 Bacteria identified Cx Nom (U) Escherichia coli Abnormal [facility] Work Phone: Comment on above: Greater than 100,000 colony forming units per mL PATIENT NOT FASTINGP ERFORMED BY: [facility] Iworjc9743 [facility] [id number] Information: [id number] Bacteria identified Cx Nom (U) Final report Abnormal [facility] Work Phone: Comment on above: PATIENT NOT FASTINGP ERFORMED BY: [facility] Ihktvo4345 [address] Yorumla.comFirstHealth [id number] Information: [id number] Other Antibiotic [facility] prehensive Internal Medicine Work Phone: Comment on above: S = Susceptibl e; I = Intermediate; R = Resistant P = Positive; N = Negative MICS are expressed in micrograms per mL Antibiotic RSLT#1 RSLT#2 RSLT#3 RSLT#4Amoxicillin/Clavulanic Acid SAmpicillin SCefepime SCeftriaxone SCefuroxime SCephalothin SCiprofloxacin SErtapenem SGentamicin SImipenem SLevofloxacin SNitrofurantoin SPiperacillin STetracycline STobramycin STrimethoprim/Sulfa S PATIENT NOT FASTINGP ERFORMED BY: LabEoeMobilerp Sjvpyu8864 [facility] [id number] Information: [id number] Urinalysis, Office (98550)Or dered By: Alyson Dixon on 04-17-2014 Bilirubin [...] Medicine Work Phone: CBC WITH MANUAL DIFF ([id number]) Ordered By: Digital Experience Manager on 04-06-2014 Basophils #/vol (Bld) 0.0 {x10E3/uL} Normal 0.0-0.2 [facility] Work Phone: Comment on above: PATIENT NOT FASTINGP ERFORMED BY: LabCo Plpuia6683 [address] Yorumla.comFirstHealth [id number] Information: [id number] Basophils/100 WBC (Bld) 0 % Normal 0-3 [facility] Work Phone: Comment on above: PATIENT NOT FASTINGP ERFORMED BY: CB [facility] Tvkyba4867 [address] [facility] [id number] Information: [id number] Eosinophils #/vol (Bld) 0.1 {x10E3/uL} Normal 0.0-0.4 [facility] Work Phone: Comment on above: PATIENT NOT FASTINGP ERFORMED BY: CB [facility] Xizaoy4921 [address] [facility] [id number] Information: [id number] Eosinophils/100 WBC (Bld) 2 % Normal 0-5 [facility] Work Phone: Comment on above: PATIENT NOT FASTINGP ERFORMED BY: CB [facility] Jukrai8081 [facility] [id number] Information: [id number] Erythrocyte distribution width Ratio (RBC) 13.5 % Normal 12.3-15.4 [facility] Work Phone: Comment on above: PATIENT NOT FASTINGP ERFORMED BY: ORTIZ RobledoCoaustyn Thesub0664 [facility] [id number] Information: [id number] Hematocrit Volume Fraction (Bld) 38.1 % Normal 34.0-46.6 [facility] Work Phone: Comment on above: PATIENT NOT FASTINGP ERFORMED BY: [facility] Aafapc4618 [facility] [id number] Information: [id number] Hemoglobin mass conc (Bld) 12.8 g/dL Normal 11.1-15.9 [facility] Work Phone: Comment on above: PATIENT NOT FASTINGP ERFORMED BY: ORTIZ [facility] Dfwavk5025 [facility] [id number] Information: [id number] Immature granulocytes #/vol (Bld) 0.0 {x10E3/uL} Normal 0.0-0.1 [facility] Work Phone: Comment on above: PATIENT NOT FASTINGP ERFORMED BY: ORTIZ RobledoCoRobert Wood Johnson University HospitalKogmje6275 [facility] [id number] Information: [id number] Immature granulocytes/100 WBC (Bld) 0 % Normal 0-2 [facility] Work Phone: Comment on above: PATIENT NOT FASTINGP ERFORMED BY: LabCo Tjyxzm8832 [facility] [id number] Information: [id number] Lymphocytes #/vol (Bld) 1.5 {x10E3/uL} Normal 0.7-3.1 [facility] Work Phone: Comment on above: PATIENT NOT FASTINGP ERFORMED BY: ORTIZ [facility] Zbfkms7720 [facility] [id number] Information: [id number] Lymphocytes/100 WBC (Bld) 26 % Normal 14-46 [facility] Work Phone: Comment on above: PATIENT NOT FASTINGP ERFORMED BY: CB [facility] Segzie4721 Rodriguez RoadDublin [place] [id number] Information: [id number] MCH Entitic mass (RBC) 31.1 pg Normal 26.6-33.0 [facility] Internal Medicine Work Phone: Comment on above: PATIENT NOT FASTINGP ERFORMED BY: [address] [id number] Information: [id number] MCHC mass conc (RBC) 33.6 g/dL Normal 31.5-35.7 [facility] Internal Medicine Work Phone: Comment on above: PATIENT NOT FASTINGP ERFORMED BY: [address] [id number] Information: [id number] MCV Entitic volume (RBC) 93 fL Normal 79-97 [facility] Internal Medicine Work Phone: Comment on above: PATIENT NOT FASTINGP ERFORMED BY: [address] [id number] Information: [id number] Monocytes #/vol (Bld) 0.5 {x10E3/uL} Normal 0.1-0.9 [facility] Work Phone: Comment on above: PATIENT NOT FASTINGP ERFORMED BY: [place] [id number] [facility] [id number] Information: [id number] Monocytes/100 WBC (Bld) 9 % Normal 4-12 [facility] Work Phone: Comment on above: PATIENT NOT FASTINGP ERFORMED BY: [place] [id number] [facility] [id number] Information: [id number] Neutrophils #/vol (Bld) 3.5 {x10E3/uL} Normal 1.4-7.0 [facility] Work Phone: Comment on above: PATIENT NOT FASTINGP ERFORMED BY: [address] [id number] Information: [id number] Neutrophils/100 WBC (Bld) 63 % Normal 40-74 [facility] Work Phone: Comment on above: PATIENT NOT FASTINGP ERFORMED BY: ORTIZ Chester6370 [facility] [id number] Information: [id number] Platelets #/vol (Bld) 193 {x10E3/uL} Normal 150-379 [facility] Work Phone: Comment on above: PATIENT NOT FASTINGP ERFORMED BY: ORTIZ Hou Kqajww[address] [id number] Information: [id number] RBC #/vol (Bld) 4.12 {x10E6/uL} Normal 3.77-5.28 [facility] Internal Medicine Work Phone: Comment on above: PATIENT NOT FASTINGP ERFORMED BY: ORTIZ Crowelin6370 [facility] [id number] Information: [id number] WBC #/vol (Bld) 5.6 {x10E3/uL} Normal 3.4-10.8 [facility] Internal Medicine Work Phone: Comment on above: PATIENT NOT FASTINGP ERFORMED BY: ORTIZ Crowelin6370 [facility] [id number] Information: [id number] LIPID PANEL (87791)Ordered B y: Digital Experience Manager on 04-06-2014 Cholesterol in HDL mass conc 54 mg/dL Normal [facility] Work Phone: Comment on above: According to ATP-III Guidelines, HDL-C >59 mg/dL is considered anegative risk factor for CHD. PATIENT NOT FASTINGP ERFORMED BY: ORTIZ Crowelin6370 [facility] [id number] Cholesterol in LDL mass conc 63 mg/dL Normal 0-99 [facility] Work Phone: Comment on above: PATIENT NOT FASTINGP ERFORMED BY: CB [facility] Lhxvmu9660 [address] RoadDublin [place] [id number] Cholesterol in LDL/Cholesterol in HDL mass ratio 1.2 {ratio_units} Normal 0.0-3.2 [facility] Work Phone: Comment on above: PATIENT NOT FASTINGP ERFORMED BY: ORTIZ LabCoaustyn Gheuph9358 [address] RoadDublin [place] [id number] Cholesterol in VLDL mass conc 41 mg/dL Abnormal 5-40 [facility] Work Phone: Comment on above: PATIENT NOT FASTINGP ERFORMED BY: ORTIZ [facility] Kijjdr5741 [address] RoadDublin [place] [id number] Cholesterol mass conc 158 mg/dL Normal 100-199 Com prehensive Internal Medicine Work Phone: Comment on above: PATIENT NOT FASTINGP ERFORMED BY: ORTIZ MeenaCoaustyn CroweYbpioh1262 [address] RoadDublin [place] [id number] Triglyceride mass conc 206 mg/dL Abnormal 0-149 Co [facility] Work Phone: Comment on above: PATIENT NOT FASTINGP ERFORMED BY: ORTIZ [facility] Fektfx9461 [address] RoadDublin [place] [id number] METABOLIC PANEL, COMPREHENSI VE (07458)Ordered By: Digital Experience Manager on 04-06-2014 Albumin mass conc 4.3 g/dL Normal 3.5-4.8 Compreh ensive Internal Medicine Work Phone: Comment on above: PATIENT NOT FASTINGP ERFORMED BY: ORTIZ [facility] Klpwfo9350 [address] RoadDublin [place] [id number] Albumin/Globulin mass ratio 2.2 {ratio} Normal 1.1-2.5 [facility] Work Phone: Comment on above: PATIENT NOT FASTINGP ERFORMED BY: CB [facility] Jfgxfj1027 [address] RoadDublin [place] [id number] ALP enzyme act/vol 87 [iU]/L Normal 39-117 Compre [facility] Internal Medicine Work Phone: Comment on above: PATIENT NOT FASTINGP ERFORMED BY: ORTIZ [facility] Ofgwer8263 [address] RoadDublin [place] [id number] ALT enzyme act/vol 14 [iU]/L Normal 0-32 Compre [facility] Internal Medicine Work Phone: Comment on above: PATIENT NOT FASTINGP ERFORMED BY: CB [facility] Ctlldl7356 [address] RoadDublin [place] [id number] AST enzyme act/vol 18 [iU]/L Normal 0-40 Compre [facility] Internal Medicine Work Phone: Comment on above: PATIENT NOT FASTINGP ERFORMED BY: CB [facility] Dkepbf9896 [address] Roadblin [place] [id number] Bilirubin mass conc 0.3 mg/dL Normal 0.0-1.2 Compr ensive Internal Medicine Work Phone: Comment on above: PATIENT NOT FASTINGP ERFORMED BY: CB [facility] Mbxqwr5385 [address] RoadAtrium Health Carol[facility] Rehabilitation Charlottein [place] [id number] Calcium mass conc 10.0 mg/dL Normal 8.6-10.2 Compreh [facility]ive [facility] Work Phone: Comment on above: PATIENT NOT FASTINGP ERFORMED BY: CB [facility] Acwqcx0597 [address] RoadAtrium Health Carol[facility] Rehabilitation Charlottein [place] [id number] Chloride molar conc 101 mmol/L Normal 97-108 Compr ensive Internal Medicine Work Phone: Comment on above: PATIENT NOT FASTINGP ERFORMED BY: CB [facility] Quqoia3369 [address] [facility]in [place] [id number] CO2 molar conc 28 mmol/L Normal 18-29 Comprehens [facility] Internal Medicine Work Phone: Comment on above: PATIENT NOT FASTINGP ERFORMED BY: CB [facility] Fekkhf2249 [address] Roadblin [place] [id number] Creatinine mass conc 0.73 mg/dL Normal 0.57-1.00 Comp [facility] Work Phone: Comment on above: PATIENT NOT FASTINGP ERFORMED BY: CB [facility] Ptasku3361 Rodriguez Roadblin [place] [id number] GFR/1.73 sq M predicted among blacks CKD-EPI vol rate/area (S/P/Bld) 94 mL/min/1.73 Normal [facility] Work Phone: Comment on above: PATIENT NOT FASTINGP ERFORMED BY: CB [facility] Eokhct2733 [address] RoadDublin [place] [id number] GFR/1.73 sq M predicted among non-blacks CKD-EPI vol rate/area (S/P/Bld) 81 mL/min/1.73 Normal Comprehensiv e Internal Medicine Work Phone: Comment on above: PATIENT NOT FASTINGP ERFORMED BY: CB [facility] Cavmmd8174 [address] RoadDublin [place] [id number] Globulin mass conc (S) 2.0 g/dL Normal 1.5-4.5 Co mprehensive Internal Medicine Work Phone: Comment on above: PATIENT NOT FASTINGP ERFORMED BY: CB [facility] Jdtzdh5979 [address] RoadDublin [place] [id number] Glucose mass conc 87 mg/dL Normal 65-99 Compreh ensive Internal Medicine Work Phone: Comment on above: PATIENT NOT FASTINGP ERFORMED BY: CB [facility] Mloard9091 [address] RoadDublin [place] [id number] Potassium molar conc 5.0 mmol/L Normal 3.5-5.2 Comp rehensive Internal Medicine Work Phone: Comment on above: PATIENT NOT FASTINGP ERFORMED BY: CB [facility] Ffmonb4766 [address] RoadDublin [place] [id number] Protein mass conc 6.3 g/dL Normal 6.0-8.5 Compreh ensive Internal Medicine Work Phone: Comment on above: PATIENT NOT FASTINGP ERFORMED BY: CB [facility] Eyfdpy6968 [address] RoadDublin [place] [id number] Sodium molar conc 142 mmol/L Normal 134-144 Compreh ensive Internal Medicine Work Phone: Comment on above: PATIENT NOT FASTINGP ERFORMED BY: CB [facility] Vmownn0699 [address] RoadDublin [place] [id number] Urea nitrogen mass conc 12 mg/dL Normal 8-27 [facility] Work Phone: Comment on above: PATIENT NOT FASTINGP ERFORMED BY: [facility] Lramyw3574 [address] RoadDublin [place] [id number] Urea nitrogen/Creatinine mass ratio 16 mg/mg Normal 11- [facility] Work Phone: Comment on above: PATIENT NOT FASTINGP ERFORMED BY: [facility] Wykjel2321 [address] RoadDublin [place] [id number] TSH (74236)Ordered By: Samantha tuckre Lead Athlete on 04-06-2014 Thyrotropin Qn 0.748 {uIU/mL} Normal 0.450-4.50 0 [facility] Work Phone: Comment on above: PATIENT NOT FASTINGP ERFORMED BY: [facility] Jspqte8657 [address] Yorumla.comDublin [place] [id number] Vitamin D Hydroxy (50780)Ord ered By: Digital Experience Manager on 04-06-2014 25-Hydroxyvitamin D2+25-Hydroxyvitamin D3 mass conc 29.5 ng/mL Abnormal 30.0-100.0 [facility] Work Phone: Comment on above: Vitamin D deficiency has been defined by the [place] ofMedicine and an Endocrine Society practice guideline as alevel of serum 25-OH vitamin D less than 20 ng/mL (1,2).The Endocrine Society went on to further define vitamin Dinsufficiency as a level between 21 and 29 ng/mL (2).1. IOM ([place] of Medicine). 2010. Dietary reference intakes for calcium and D. [place]: The National Academies Press.2. Allie MF, Emile PONCE, Natalie POOLE, et al. Evaluation, treatment, and prevention of vitamin D deficiency: an Endocrine Society clinical practice guideline. JCEM. 2010; 96(7):1911-30. PATIENT NOT FASTINGP ERFORMED BY: [facility] Cvhxqz0999 [address] RoadDublin [place] [id number] CBC WITH MANUAL DIFF (75082) Ordered By: Digital Experience Manager on 12-22-2013 Basophils #/vol (Bld) 0.0 {x10E3/uL} Normal 0.0-0.2 [facility] Work Phone: Comment on above: PATIENT NOT FASTINGP ERFORMED BY: ORTIZ [facility] Wlnczo1048 [address] [facility]in [place] [id number] Information: [id number], 859342 Basophils/100 WBC (Bld) 0 % Normal 0-3 [facility] Work Phone: Comment on above: PATIENT NOT FASTINGP ERFORMED BY: [facility] Frafgc0293 [address] [facility] [id number] Information: [id number] 469850 Eosinophils #/vol (Bld) 0.1 {x10E3/uL} Normal 0.0-0.4 [facility] Work Phone: Comment on above: PATIENT NOT FASTINGP ERFORMED BY: [facility] Qfhqbq0251 [address] [facility] [id number] Information: A27905, 309581 Eosinophils/100 WBC (Bld) 2 % Normal 0-5 [facility] Work Phone: Comment on above: PATIENT NOT FASTINGP ERFORMED BY: [facility] Gyimnk5846 [address] [facility] [id number] Information: [id number], 362820 Erythrocyte distribution width Ratio (RBC) 13.7 % Normal 12.3-15.4 [facility] Work Phone: Comment on above: PATIENT NOT FASTINGP ERFORMED BY: [facility] Dnlkbd0879 [address] [facility] [id number] Information: L31844, 956569 Hematocrit Volume Fraction (Bld) 38.4 % Normal 34.0-46.6 [facility] Work Phone: Comment on above: PATIENT NOT FASTINGP ERFORMED BY: [facility] Sbifho4767 [address] [facility]in [place] [id number] Information: X26473, 783409 Hemoglobin mass conc (Bld) 12.8 g/dL Normal 11.1-15.9 [facility] Work Phone: Comment on above: PATIENT NOT FASTINGP ERFORMED BY: [facility] Zhajoi0278 [address] [facility] [id number] Information: G39753, 907070 Immature granulocytes #/vol (Bld) 0.0 {x10E3/uL} Normal 0.0-0.1 [facility] Work Phone: Comment on above: PATIENT NOT FASTINGP ERFORMED BY: ORTIZ RobledoCoaustyn ChesterZjbbnl4342 [facility] [id number] Information: M22792, 323863 Immature granulocytes/100 WBC (Bld) 0 % Normal 0-2 [facility] Work Phone: Comment on above: PATIENT NOT FASTINGP ERFORMED BY: LabCoRobert Wood Johnson University HospitalFnbaaq9835 [facility] [id number] Information: R51528, 987350 Lymphocytes #/vol (Bld) 1.1 {x10E3/uL} Normal 0.7-3.1 [facility] Work Phone: Comment on above: PATIENT NOT FASTINGP ERFORMED BY: MeenaCoRobert Wood Johnson University HospitalIqocot6291 [facility] [id number] Information: F75784, 609906 Lymphocytes/100 WBC (Bld) 22 % Normal 14-46 [facility] Work Phone: Comment on above: PATIENT NOT FASTINGP ERFORMED BY: MeenaCo Xrhioc8071 [facility] [id number] Information: [id number], 788074 MCH Entitic mass (RBC) 30.6 pg Normal 26.6-33.0 [facility] Internal Medicine Work Phone: Comment on above: PATIENT NOT FASTINGP ERFORMED BY: [facility] Lfheeg2650 [facility] [id number] Information: C40554, 262854 MCHC mass conc (RBC) 33.3 g/dL Normal 31.5-35.7 [facility] Internal Medicine Work Phone: Comment on above: PATIENT NOT FASTINGP ERFORMED BY: [facility] Yvugit8172 [facility] [id number] Information: N82263, 291745 MCV Entitic volume (RBC) 92 fL Normal 79-97 [facility] Work Phone: Comment on above: PATIENT NOT FASTINGP ERFORMED BY: ORTIZ LabCoaustyn ChesterYttner4359 [facility] [id number] Information: C42732, 282063 Monocytes #/vol (Bld) 0.4 {x10E3/uL} Normal 0.1-0.9 [facility] Work Phone: Comment on above: PATIENT NOT FASTINGP ERFORMED BY: ORTIZ LabCoRobert Wood Johnson University HospitalYchxhs1409 [facility] [id number] Information: X33502, 894261 Monocytes/100 WBC (Bld) 8 % Normal 4-12 [facility] Work Phone: Comment on above: PATIENT NOT FASTINGP ERFORMED BY: [facility] Dupctt3280 [facility] [id number] Information: O18750, 215476 Neutrophils #/vol (Bld) 3.3 {x10E3/uL} Normal 1.4-7.0 [facility] Work Phone: Comment on above: PATIENT NOT FASTINGP ERFORMED BY: ORTIZ RobledoCo Lwidsc2137 [facility] [id number] Information: F01820, 412895 Neutrophils/100 WBC (Bld) 68 % Normal 40-74 [facility] Work Phone: Comment on above: PATIENT NOT FASTINGP ERFORMED BY: [facility] Zcuago3323 [facility] [id number] Information: R57964, 047705 Platelets #/vol (Bld) 190 {x10E3/uL} Normal 155-379 [facility] Work Phone: Comment on above: PATIENT NOT FASTINGP ERFORMED BY: [facility] Ugbans3038 [facility] [id number] Information: U69327, 743051 RBC #/vol (Bld) 4.18 {x10E6/uL} Normal 3.77-5.28 [facility] Internal Medicine Work Phone: Comment on above: PATIENT NOT FASTINGP ERFORMED BY: ORTIZ Chester6370 [facility] [id number] Information: H36706, 473796 WBC #/vol (Bld) 4.8 {x10E3/uL} Normal 3.4-10.8 [facility] Internal Medicine Work Phone: Comment on above: PATIENT NOT FASTINGP ERFORMED BY: ORTIZ Hou Wlhhvp2129 [facility] [id number] Information: H27340, 170682 D-Dimer (65169)Ordered By: Dc keithtem Lead Athlete on 12-22-2013 D-Dimer (92452) 0.40 {ug_FEU/mL} Normal 0.00-0.49 [facility] Internal Medicine Work Phone: Comment on above: In conjunction with a non-high clinical probability assessment, anormal (<0.50 ug FEU/mL) result excludes deep vein thrombosis (DVT)and pulmonary embolism (PE) with high sensitivity. PATIENT NOT FASTINGP ERFORMED BY: ORTIZ Chester6370 [facility] [id number] PT (Prothrobim Time) (45159) Ordered By: Digital Experience Manager on 12-22-2013 INR Coag RelTime (PPP) 1.0 {INR} Normal 0.8-1.2 [facility] Internal Medicine Work Phone: Comment on above: Reference interval i s for non-anticoagulated patients. . Suggested INR therapeutic range for Vitamin K antagonist therapy: Standard Dose (moderate intensity therapeutic range): 2.0 - 3.0 Higher intensity therapeutic range 2.5 - 3.5 PATIENT NOT FASTINGP ERFORMED BY: ORTIZ Hou Pypcyy5258 [facility] [id number] Prothrombin time (PT) Coag time (PPP) 10.6 {sec} Normal 9.1-12.0 [facility] Internal Medicine Work Phone: Comment on above: PATIENT NOT FASTINGP ERFORMED BY: [employer] InternationalCrittenton Behavioral HealthAlhphc2832 [address] [facility]bl[facility] [place] [id number] PTT (Activated Partial Throm boplastin Time) (81436)Ordered By: Digital Experience Manager on 12-22-2013 aPTT Coag time (PPP) 26 {sec} Normal 24-33 [facility] Internal Medicine Work Phone: Comment on above: This test has not be en validated for monitoring unfractionated heparintherapy. aPTT-based therapeutic ranges for unfractionated heparintherapy have not been established. For general guidelines onHeparin monitoring, refer to the [employer] InternationalPer[facility] Directory of Services. PATIENT NOT FASTINGP ERFORMED BY: HipvanLovelace Rehabilitation HospitalJkvobc2726 [address] Yorumla.comFirstHealth [id number] MICROALBUMINOrdered By: Syst em Lead Athlete on 12-05-2013 Albumin DL <= 20 mg/L mass conc (U) 23.2 ug/mL Abnormal 0.0-17.0 [facility] Work Phone: Comment on above: PATIENT NOT FASTINGP ERFORMED BY: [employer] InternationalCrittenton Behavioral HealthKgswdq9225 [address] Yorumla.comAtrium Health [facility] Rehabilitation [place]in [place] [id number] Albumin/Creatinine mass ratio (U) 14.1 {mg/g_creat} Normal 0.0-30.0 [facility] Work Phone: Comment on above: PATIENT NOT FASTINGP ERFORMED BY: [employer] [facility] InternationalMarlette Regional Hospital6370 [facility] [id number] Creatinine mass conc (U) 164.8 mg/dL Normal 15.0-278.0 [facility] Work Phone: Comment on above: PATIENT NOT FASTINGP ERFORMED BY: [employer] InternationalMarlette Regional Hospital6370 [facility]in [place] [id number] URINALYSIS, W/ MICRO (61654) Ordered By: Digital Experience Manager on 12-05-2013 Appearance Nom (U) Cloudy Abnormal Compre [facility] Internal Medicine Work Phone: Comment on above: PATIENT NOT FASTINGP ERFORMED BY: [employer] InternationalMarlette Regional Hospital6370 [facility] [id number] Information: Z86201 Bilirubin Ql (U) Negative Normal Comprehe nsive Internal Medicine Work Phone: Comment on above: PATIENT NOT FASTINGP ERFORMED BY: ORTIZ [facility] Pizfbr9135 [address] RoadCamp Douglas [place] [id number] Information: N65700 Color Nom (U) Yellow Normal Comprehensi ve Internal Medicine Work Phone: Comment on above: PATIENT NOT FASTINGP ERFORMED BY: ORTIZ [facility] Qfiyoa0647 Rodriguez RoadFirstHealth [id number] Information: Y35109 Glucose Ql (U) Negative Normal Comprehens trupti Internal Medicine Work Phone: Comment on above: PATIENT NOT FASTINGP ERFORMED BY: ORTIZ [facility] Kqcpot1276 Rodriguez RoadFirstHealth [id number] Information: Y11663 Hemoglobin Ql (U) Negative Normal Compreh ensive Internal Medicine Work Phone: Comment on above: PATIENT NOT FASTINGP ERFORMED BY: ORTIZ [facility] Uhpmwf5507 [address] [facility] [id number] Information: R23696 Ketones Ql (U) Negative Normal Comprehens trupti Internal Medicine Work Phone: Comment on above: PATIENT NOT FASTINGP ERFORMED BY: ORTIZ [facility] Eccbkk7449 [address] [facility] [id number] Information: U02733 Leukocyte esterase Test strip Ql (U) Negative Normal [facility] Work Phone: Comment on above: PATIENT NOT FASTINGP ERFORMED BY: ORTIZ [facility] Zkjoua8513 [address] [facility] [id number] Information: A71906 Microscopic observation LM Nom (Urine sed) See below: Normal [facility] Work Phone: Comment on above: PATIENT NOT FASTINGP ERFORMED BY: ORTIZ [facility] Gqiyst6828 [address] [facility] [id number] Information: X18859 Microscopic observation LM Nom (Urine sed) MICRON Normal [facility] Work Phone: Comment on above: Microscopic follows if indicated. PATIENT NOT FASTINGP ERFORMED BY: ORTIZ [facility] Wqfgpl7624 [address] Roadblin [place] [id number] Information: G29629 Nitrite Ql (U) Negative Normal Comprehens trupti Internal Medicine Work Phone: Comment on above: PATIENT NOT FASTINGP ERFORMED BY: ORTIZ [facility] Cqywhz6993 [address] Roadblin [place] [id number] Information: Q32859 pH (U) 5.0 [pH] Normal 5.0-7.5 [facility] Work Phone: Comment on above: PATIENT NOT FASTINGP ERFORMED BY: ORTIZ [facility] Kvzqci7573 [address] Roadblin [place] [id number] Information: D49164 Protein Ql (U) Negative Normal Comprehens trupti Internal Medicine Work Phone: Comment on above: PATIENT NOT FASTINGP ERFORMED BY: ORTIZ Hou Ksyfvx2231 [address] [facility]in [place] [id number] Information: Z85646 Specific gravity Relative Density (U) 1.017 1 Normal 1.005-1.03 0 [facility] Work Phone: Comment on above: PATIENT NOT FASTINGP ERFORMED BY: ORTIZ Hou Rcncto9783 [address] [facility]in [place] [id number] Information: F27571 Urobilinogen Test strip mass conc (U) 0.2 mg/dL Normal 0.0-1.9 Comprehensiv e Internal Medicine Work Phone: Comment on above: PATIENT NOT FASTINGP ERFORMED BY: [facility] Yvsfat8000 [address] [facility]in [place] [id number] Information: I93675 CBC WITH MANUAL DIFF (01705) Ordered By: Digital Experience Manager on 12-01-2013 Basophils #/vol (Bld) 0.0 {x10E3/uL} Normal 0.0-0.2 [facility] Work Phone: Comment on above: PATIENT WAS FASTINGP ERFORMED BY: ORTIZ [facility] Vomjaf6146 [facility] [id number] Information: 758687,Q00675 Basophils/100 WBC (Bld) 0 % Normal 0-3 [facility] Work Phone: Comment on above: PATIENT WAS FASTINGP ERFORMED BY: [place] 9916570 [facility] [id number] Information: 539581,X62680 Eosinophils #/vol (Bld) 0.1 {x10E3/uL} Normal 0.0-0.4 [facility] Work Phone: Comment on above: PATIENT WAS FASTINGP ERFORMED BY: [place] 9916570 [facility] [id number] Information: 116477,[id number] Eosinophils/100 WBC (Bld) 1 % Normal 0-5 [facility] Work Phone: Comment on above: PATIENT WAS FASTINGP ERFORMED BY: [address] [id number] Information: [id number] Erythrocyte distribution width Ratio (RBC) 13.5 % Normal 12.3-15.4 [facility] Work Phone: Comment on above: PATIENT WAS FASTINGP ERFORMED BY: [place] [id number] [facility] [id number] Information: 336246,[id number] Hematocrit Volume Fraction (Bld) 40.8 % Normal 34.0-46.6 [facility] Work Phone: Comment on above: PATIENT WAS FASTINGP ERFORMED BY: [place] [id number] [facility] [id number] Information: [id number] Hemoglobin mass conc (Bld) 13.2 g/dL Normal 11.1-15.9 [facility] Work Phone: Comment on above: PATIENT WAS FASTINGP ERFORMED BY: [place] [id number] [facility] [id number] Information: 107214,[id number] Immature granulocytes #/vol (Bld) 0.0 {x10E3/uL} Normal 0.0-0.1 [facility] Work Phone: Comment on above: PATIENT WAS FASTINGP ERFORMED BY: [place] [id number] [facility] [id number] Information: 165187,[id number] Immature granulocytes/100 WBC (Bld) 0 % Normal 0-2 [facility] Work Phone: Comment on above: PATIENT WAS FASTINGP ERFORMED BY: [address] [id number] Information: [id number],[id number] Lymphocytes #/vol (Bld) 1.4 {x10E3/uL} Normal 0.7-3.1 [facility] Work Phone: Comment on above: PATIENT WAS FASTINGP ERFORMED BY: [address] [id number] Information: 145728,[id number] Lymphocytes/100 WBC (Bld) 18 % Normal 14-46 [facility] Work Phone: Comment on above: PATIENT WAS FASTINGP ERFORMED BY: [address] [id number] Information: 562885,M70426 MCH Entitic mass (RBC) 30.1 pg Normal 26.6-33.0 [facility] Internal Medicine Work Phone: Comment on above: PATIENT WAS FASTINGP ERFORMED BY: [address] [id number] Information: 953083,[id number] MCHC mass conc (RBC) 32.4 g/dL Normal 31.5-35.7 [facility] Internal Medicine Work Phone: Comment on above: PATIENT WAS FASTINGP ERFORMED BY: [address] [id number] Information: 849141,[id number] MCV Entitic volume (RBC) 93 fL Normal 79-97 [facility] Work Phone: Comment on above: PATIENT WAS FASTINGP ERFORMED BY: [place] [id number] [facility] [id number] Information: [id number],[id number] Monocytes #/vol (Bld) 0.6 {x10E3/uL} Normal 0.1-0.9 [facility] Work Phone: Comment on above: PATIENT WAS FASTINGP ERFORMED BY: [address] [id number] Information: 206925,[id number] Monocytes/100 WBC (Bld) 7 % Normal 4-12 [facility] Work Phone: Comment on above: PATIENT WAS FASTINGP ERFORMED BY: [address] [id number] Information: 608416,M15213 Neutrophils #/vol (Bld) 5.9 {x10E3/uL} Normal 1.4-7.0 [facility] Work Phone: Comment on above: PATIENT WAS FASTINGP ERFORMED BY: [address] [id number] Information: 015672,[id number] Neutrophils/100 WBC (Bld) 74 % Normal 40-74 [facility] Work Phone: Comment on above: PATIENT WAS FASTINGP ERFORMED BY: [address] [id number] Information: [id number] Platelets #/vol (Bld) 225 {x10E3/uL} Normal 155-379 [facility] Work Phone: Comment on above: PATIENT WAS FASTINGP ERFORMED BY: [address] [id number] Information: 333161,[id number] RBC #/vol (Bld) 4.38 {x10E6/uL} Normal 3.77-5.28 Comp rehensive [facility] Work Phone: Comment on above: PATIENT WAS FASTINGP ERFORMED BY: ORTIZ Nilda Chester6370 [facility] [id number] Information: [id number],[id number] WBC #/vol (Bld) 8.0 {x10E3/uL} Normal 3.4-10.8 [facility] Internal Medicine Work Phone: Comment on above: PATIENT WAS FASTINGP ERFORMED BY: ORTIZ Nilda Chester6370 [facility] [id number] Information: 193365,[id number] LIPID PANEL (94476)Ordered B y: Digital Experience Manager on 12-01-2013 Cholesterol in HDL mass conc 47 mg/dL Normal [facility] Work Phone: Comment on above: According to ATP-III Guidelines, HDL-C >59 mg/dL is considered anegative risk factor for CHD. PATIENT WAS FASTINGP ERFORMED BY: ORTIZ Nilda Chester6370 [facility] [id number] Cholesterol in LDL mass conc 50 mg/dL Normal 0-99 [facility] Work Phone: Comment on above: PATIENT WAS FASTINGP ERFORMED BY: ORTIZ Nilda Chester6370 [facility] [id number] Cholesterol in LDL/Cholesterol in HDL mass ratio 1.1 {ratio_units} Normal 0.0-3.2 [facility] Work Phone: Comment on above: PATIENT WAS FASTINGP ERFORMED BY: ORTIZ Nilda Crowelin6370 [facility] [id number] Cholesterol in VLDL mass conc 35 mg/dL Normal 5-40 [facility] Work Phone: Comment on above: PATIENT WAS FASTINGP ERFORMED BY: ORTIZ Nilda Crowelin6370 [facility] [id number] Cholesterol mass conc 132 mg/dL Normal 100-199 [facility] Internal Medicine Work Phone: Comment on above: PATIENT WAS FASTINGP ERFORMED BY: ORTIZ [facility]6370 [facility] [id number] Triglyceride mass conc 177 mg/dL Abnormal 0-149 Co m[facility] Work Phone: Comment on above: PATIENT WAS FASTINGP ERFORMED BY: [facility] [id number] Lab Report: Ordered by Dr. Saritha delgado 12-01-2013 Alanine aminotransferase (ALT) 10 U/L Invalid Interpretation Code [facility] Work Phone: Alkaline phosphatase (ALP) 76 U/L Invalid Interpretation Code [facility] Work Phone: Aspartate aminotransferase (AST) 13 U/L Invalid Interpretation Code [facility] Work Phone: METABOLIC PANEL, COMPREHENSI VE (04759)Ordered By: Digital Experience Manager on 12-01-2013 Albumin mass conc 4.5 g/dL Normal 3.5-4.8 Compreh [facility] Internal Medicine Work Phone: Comment on above: PATIENT WAS FASTINGP ERFORMED BY: [facility]6370 [facility] [id number] Albumin/Globulin mass ratio 2.1 {ratio} Normal 1.1-2.5 [facility] Internal Medicine Work Phone: Comment on above: PATIENT WAS FASTINGP ERFORMED BY: [facility]6370 [facility] [id number] ALP enzyme act/vol 76 [iU]/L Normal 39-117 [facility] Internal Medicine Work Phone: Comment on above: PATIENT WAS FASTINGP ERFORMED BY: [facility]6370 [facility] [id number] ALT enzyme act/vol 10 [iU]/L Normal 0-32 [facility] Internal Medicine Work Phone: Comment on above: PATIENT WAS FASTINGP ERFORMED BY: [facility] [id number] AST enzyme act/vol 13 [iU]/L Normal 0-40 [facility] Internal Medicine Work Phone: Comment on above: PATIENT WAS FASTINGP ERFORMED BY: ORTIZ [facility] Gcjmlh5726 [address] RoadDublin [place] [id number] Bilirubin mass conc 0.3 mg/dL Normal 0.0-1.2 Compr ensive [facility] Work Phone: Comment on above: PATIENT WAS FASTINGP ERFORMED BY: ORTIZ [facility] Xnbemd2160 [address] RoadDublin [place] [id number] Calcium mass conc 9.9 mg/dL Normal 8.6-10.2 Compreh ensive [facility] Work Phone: Comment on above: PATIENT WAS FASTINGP ERFORMED BY: ORTIZ [facility] Tijivc6747 Rodriguez Roadblin [place] [id number] Chloride molar conc 101 mmol/L Normal 97-108 Compr ensive [facility] Work Phone: Comment on above: PATIENT WAS FASTINGP ERFORMED BY: ORTIZ [facility] Hqjfzi4866 [address] RoadAt[facility] Rehabilitation [place]in [place] [id number] CO2 molar conc 27 mmol/L Normal 19-28 Comprehens trupti Internal Medicine Work Phone: Comment on above: PATIENT WAS FASTINGP ERFORMED BY: ORTIZ [facility] Noondp1534 [address] RoadAtrium Health Carol[facility] Rehabilitation [place]in [place] [id number] Creatinine mass conc 0.97 mg/dL Normal 0.57-1.00 [facility] Work Phone: Comment on above: PATIENT WAS FASTINGP ERFORMED BY: ORTIZ [facility] Qowxfu[address] [facility] [place] [id number] GFR/1.73 sq M predicted among blacks CKD-EPI vol rate/area (S/P/Bld) 67 mL/min/1.73 Normal [facility] Work Phone: Comment on above: PATIENT WAS FASTINGP ERFORMED BY: CB [facility] Fgnacl7361 [address]bl[address] [place] [id number] GFR/1.73 sq M predicted among non-blacks CKD-EPI vol rate/area (S/P/Bld) 58 mL/min/1.73 Abnormal Comprehensiv e Internal Medicine Work Phone: Comment on above: PATIENT WAS FASTINGP ERFORMED BY: ORTIZ [facility] Dshvkj4609 [address] RoadDublin [place] [id number] Globulin mass conc (S) 2.1 g/dL Normal 1.5-4.5 [facility] Work Phone: Comment on above: PATIENT WAS FASTINGP ERFORMED BY: ORTIZ [facility] Dncsim2744 [address] RoadDublin [place] [id number] Glucose mass conc 99 mg/dL Normal 65-99 Compreh ensive [facility] Medicine Work Phone: Comment on above: PATIENT WAS FASTINGP ERFORMED BY: ORTIZ [facility] Csacoq4809 [address] RoadDublin [place] [id number] Potassium molar conc 4.9 mmol/L Normal 3.5-5.2 [facility] Work Phone: Comment on above: PATIENT WAS FASTINGP ERFORMED BY: ORTIZ [facility] Kfodor8157 [address] RoadDublin [place] [id number] Protein mass conc 6.6 g/dL Normal 6.0-8.5 Compreh ensive [facility] Work Phone: Comment on above: PATIENT WAS FASTINGP ERFORMED BY: ORTIZ [facility] Kvnswm0393 [address] RoadDublin [place] [id number] Sodium molar conc 141 mmol/L Normal 134-144 Compreh ensive [facility] Work Phone: Comment on above: PATIENT WAS FASTINGP ERFORMED BY: ORTIZ [facility] Lwnbrk7924 [address] RoadDublin [place] [id number] Urea nitrogen mass conc 21 mg/dL Normal 8-27 [facility] Work Phone: Comment on above: PATIENT WAS FASTINGP ERFORMED BY: ORTIZ [facility] Avybom1925 [address] RoadDublin [place] [id number] Urea nitrogen/Creatinine mass ratio 22 mg/mg Normal 11-26 [facility] Work Phone: Comment on above: PATIENT WAS FASTINGP ERFORMED BY: ORTIZ [facility] Hvexkd8017 [address] RoadDublin [place] [id number] TSH ([id number])Ordered By: Syste m Lead Athlete on 12-01-2013 Thyrotropin Qn 1.040 {uIU/mL} Normal 0.450-4.50 0 [facility] Work Phone: Comment on above: PATIENT WAS FASTINGP ERFORMED BY: ORTIZ [facility] Cxqumd2720 [facility] [id number] URINE IBRAHIMA CULTURE (TY COL COUNT) (00349)Ordered By: Digital Experience Manager on 12-01-2013 Bacteria identified Cx Nom (U) Escherichia coli Normal [facility] Work Phone: Comment on above: Greater than 100,000 colony forming units per mL PATIENT NOT FASTINGP ERFORMED BY: [facility] Uiclee70[address] MetaNotesYadkin [facility] Hospital [id number] Information: SRC:UR [id number] Bacteria identified Cx Nom (U) Final report Normal [facility] Work Phone: Comment on above: PATIENT NOT FASTINGP ERFORMED BY: LabEoeMobilerp Fqlnyz2601 [facility] [id number] Information: SRC:UR P96908 Other Antibiotic [facility] prehensive Internal Medicine Work Phone: Comment on above: S = Susceptibl e; I = Intermediate; R = Resistant P = Positive; N = Negative MICS are expressed in micrograms per mL Antibiotic RSLT#1 RSLT#2 RSLT#3 RSLT#4Amoxicillin/Clavulanic Acid SAmpicillin SCefepime SCeftriaxone SCefuroxime SCephalothin SCiprofloxacin SErtapenem SGentamicin SImipenem SLevofloxacin SNitrofurantoin SPiperacillin STetracycline STobramycin STrimethoprim/Sulfa S PATIENT NOT FASTINGP ERFORMED BY: LabEoeMobile Jnzxhv1548 [facility] [id number] Information: SRC:UR P95112 Urinalysis, Office (83655)Or dered By: Jacinta Patel on 12-01-2013 Bilirubin [...] Internal Medicine Work Phone: Vitamin D Hydroxy (19047)Ord ered By: Digital Experience Manager on 12-01-2013 25-Hydroxyvitamin D2+25-Hydroxyvitamin D3 mass conc 38.9 ng/mL Normal 30.0-100.0 [facility] Work Phone: Comment on above: Vitamin D deficiency has been defined by the [place] of[place]icine and an Endocrine Society practice guideline as alevel of serum 25-OH vitamin D less than 20 ng/mL (1,2).The Endocrine Society went on to further define vitamin Dinsufficiency as a level between 21 and 29 ng/mL (2).1. IOM ([place] of Medicine). 2010. Dietary reference intakes for calcium and D. [place]: The National Academies Press.2. Allie MF, Emile NC, Natalie POOLE, et al. Evaluation, treatment, and prevention of vitamin D deficiency: an Endocrine Society clinical practice guideline. JCEM. 2010; 96(7):1911-30. PATIENT WAS FASTINGP ERFORMED BY: [facility] Pdilvx6456 [facility] [id number] Lab Report: PTon 04-19-2013 INR in blood by coagulation 1.0 {INR} Normal [facility] Work Phone: prothrombin time, actual/normal, ratio 12.8 SECONDS Normal 11.9-14.4 [facility] Work Phone: Lab Report: PTTon 04-19-2013 aPTT 29.8 s Normal 24.1-36.2 [facility] Work Phone: Replaced Document: Escobar Parra CG Observationson 04-19-2013 Pulse (Heart Rate) 421 ms Invalid Interpretation Code [facility] Work Phone: URINE IBRAHIMA CULTURE-TY COL C OUNT (31960)Ordered By: Digital Experience Manager on 04-18-2013 Bacteria identified Cx Nom (U) Final report Normal [facility] Work Phone: Comment on above: PATIENT NOT FASTINGP ERFORMED BY: AnaBiosYad[facility] [id number] Information: SRC:UR [id number] Bacteria identified Cx Nom (U) NG36 Normal [facility] Work Phone: Comment on above: No growth in 36 - 48 hours. PATIENT NOT FASTINGP ERFORMED BY: [employer] [place] [id number] Information: SRC:UR F02462 Urinalysis, Office (55550)Or dered By: Jacinta Patel on 04-15-2013 Bilirubin [...] Phone: URINE IBRAHIMA CULTURE (TY COL COUNT) (16578)Ordered By: Digital Experience Manager on 09-30-2012 Bacteria identified Cx Nom (U) Escherichia coli Normal [facility] Work Phone: Comment on above: Greater than 100,000 colony forming units per mL PATIENT NOT FASTINGP ERFORMED BY: [employer] LabEoeMobilerp Nruioe3511 Rodriguez RoadDailyeventYadkin Valley Community Hospital [id number] Information: SRC:UR [id number] Bacteria identified Cx Nom (U) Final report Normal [facility] Work Phone: Comment on above: PATIENT NOT FASTINGP ERFORMED BY: [employer] LabEoeMobilerp Xwbeds4396 Rodriguez RoadDuin [place] [id number] Information: SRC:UR F70544 Other Antibiotic [facility] prehensive Internal Medicine Work Phone: Comment on above: S = Susceptibl e; I = Intermediate; R = Resistant P = Positive; N = Negative MICS are expressed in micrograms per mL Antibiotic RSLT#1 RSLT#2 RSLT#3 RSLT#4Amoxicillin/Clavulanic Acid SAmpicillin SCefazolin SCefepime SCeftriaxone SCefuroxime SCephalothin SCiprofloxacin SESBL NErtapenem SGentamicin SImipenem SLevofloxacin SNitrofurantoin SPiperacillin STetracycline STobramycin STrimethoprim/Sulfa S PATIENT NOT FASTINGP ERFORMED BY: ORTIZ [facility] Bqojvv5616 [facility] [id number] Information: SRC:UR L35865 Urinalysis, Office (32254)Or dered By: Alyson Dixon on 09-30-2012 Bilirubin [...] Albumin/Globulin Ratio 1.1 {ratio} Invalid Interpretation Code [facility] Work Phone: Protein 6.7 g/dL Invalid Interpretation Code [facility] Work Phone: Alkaline Phosphatase (49860) Ordered By: Digital Experience Manager on 02-25-2012 ALP enzyme act/vol 67 [iU]/L Normal 25-165 Compre hensive Internal Medicine Work Phone: Comment on above: PATIENT NOT FASTINGP ERFORMED BY: ORTIZ [facility] Tkxmta9381 [facility] [id number] CALCIFIDIOL (05470) VIT D 25 Ordered By: Digital Experience Manager on 02-25-2012 25-Hydroxyvitamin D2+25-Hydroxyvitamin D3 mass conc 45.8 ng/mL Normal 30.0-100.0 [facility] Work Phone: Comment on above: Vitamin D deficiency has been defined by the [place] ofMedicine and an Endocrine Society practice guideline as alevel of serum 25-OH vitamin D less than 20 ng/mL (1,2).The Endocrine Society went on to further define vitamin Dinsufficiency as a level between 21 and 29 ng/mL (2).1. IOM ([place] of Medicine). 2010. Dietary reference intakes for calcium and D. [place]: The National Academies Press.2. Allie MF, Emile [place], Natalie POOLE, et al. Evaluation, treatment, and prevention of vitamin D deficiency: an Endocrine Society clinical practice guideline. JCEM. 2010; 96(7):1911-30. 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 [facility] 34.6 % Invalid Interpretation Code [facility] Work Phone: CBC (AUTO) (83329)Ordered By : Digital Experience Manager on 10-14-2010 Erythrocyte distribution width Ratio (RBC) 13.5 % Normal 11.7-15.0 [facility] Work Phone: Comment on above: PATIENT NOT FASTINGP ERFORMED BY: ORTIZ lensgen70 [facility]optagrYadkin [facility] [id number] Hematocrit Volume Fraction (Bld) 40.4 % Normal 34.0-44.0 [facility] Work Phone: Comment on above: PATIENT NOT FASTINGP ERFORMED BY: ORTIZ MeenaAleksandr CroweIhkqbs[address] [facility] [id number] Hemoglobin mass conc (Bld) 13.7 g/dL Normal 11.5-15.0 [facility] Internal Medicine Work Phone: Comment on above: PATIENT NOT FASTINGP ERFORMED BY: ORTIZ LabCoaustyn CroweGtjoxn1418 [address] [facility] [id number] MCH Entitic mass (RBC) 29.5 pg Normal 27.0-34.0 [facility] Internal Medicine Work Phone: Comment on above: PATIENT NOT FASTINGP ERFORMED BY: ORTIZ LabCoaustyn CroweUkkqno0745 [address] [facility] [id number] MCHC mass conc (RBC) 33.9 g/dL Normal 32.0-36.0 [facility] Internal Medicine Work Phone: Comment on above: PATIENT NOT FASTINGP ERFORMED BY: ORTIZ Crowelin6370 [facility] [id number] MCV Entitic volume (RBC) 87 fL Normal 80-98 [facility] Internal Medicine Work Phone: Comment on above: PATIENT NOT FASTINGP ERFORMED BY: ORTIZ Crowelin[address] [facility] [id number] Platelets #/vol (Bld) 280 {x10E3/uL} Normal 140-415 [facility] Internal Medicine Work Phone: Comment on above: PATIENT NOT FASTINGP ERFORMED BY: ORTIZ LabKellie Oqzqiu0773 [address] [facility] [id number] RBC #/vol (Bld) 4.64 {x10E6/uL} Normal 3.80-5.10 [facility] Internal Medicine Work Phone: Comment on above: PATIENT NOT FASTINGP ERFORMED BY: ORTIZ LabCo Qkwjpc5994 [address] [facility] [id number] WBC #/vol (Bld) 6.2 {x10E3/uL} Normal 4.0-10.5 [facility] Internal Medicine Work Phone: Comment on above: PATIENT NOT FASTINGP ERFORMED BY: CB [facility] Kynrxb0981 [address] [facility] [place] [id number] METABOLIC PANEL, COMPREHENSI VE (97170)Ordered By: Digital Experience Manager on 10-14-2010 Albumin mass conc 4.4 g/dL Normal 3.5-4.8 Compreh [facility] Internal Medicine Work Phone: Comment on above: PATIENT NOT FASTINGP ERFORMED BY: CB [facility] Dgtlfz8507 [address] [facility] [id number] Information: [id number] Albumin/Globulin mass ratio 1.8 {ratio} Normal 1.1-2.5 [facility] Internal Medicine Work Phone: Comment on above: PATIENT NOT FASTINGP ERFORMED BY: CB [facility] Xvuupy6[address] [facility] [id number] Information: 358726,R10183 ALP enzyme act/vol 84 [iU]/L Normal 25-165 [facility] Internal Medicine Work Phone: Comment on above: PATIENT NOT FASTINGP ERFORMED BY: CB [facility] Xfavup3831 [address] [facility] [id number] Information: [id number],M78620 ALT enzyme act/vol 13 [iU]/L Normal 0-40 [facility] Internal Medicine Work Phone: Comment on above: PATIENT NOT FASTINGP ERFORMED BY: CB [facility] Ldtemu9208 [address] [facility] [id number] Information: 790215,P11639 AST enzyme act/vol 13 [iU]/L Normal 0-40 [facility] Internal Medicine Work Phone: Comment on above: PATIENT NOT FASTINGP ERFORMED BY: CB [facility] Gjexmr4216 [address] [facility] [id number] Information: 152212,X36756 Bilirubin mass conc 0.2 mg/dL Normal 0.0-1.2 [facility] Internal Medicine Work Phone: Comment on above: PATIENT NOT FASTINGP ERFORMED BY: CB [facility] Jfrwgs6324 [address] [facility] [place] [id number] Information: 310455,N92000 Calcium mass conc 10.4 mg/dL Abnormal 8.6-10.2 Compreh ensive Internal Medicine Work Phone: Comment on above: PATIENT NOT FASTINGP ERFORMED BY: OTRIZ [facility] Xpalpq1451 [facility] [id number] Information: 264541,K85727 Chloride molar conc 101 mmol/L Normal 97-108 Compr ehensive Internal Medicine Work Phone: Comment on above: PATIENT NOT FASTINGP ERFORMED BY: [facility] Nfwcqj4425 [facility] [id number] Information: 439850,U08754 CO2 molar conc 28 mmol/L Normal 20-32 Comprehens trupti Internal Medicine Work Phone: Comment on above: PATIENT NOT FASTINGP ERFORMED BY: [facility] Akqboc7231 [facility] [id number] Information: 567120,W52940 Creatinine mass conc 0.70 mg/dL Normal 0.57-1.00 Comp rehensive Internal Medicine Work Phone: Comment on above: PATIENT NOT FASTINGP ERFORMED BY: ORTIZ [facility] Jfszgu0023 [facility] [id number] Information: 218497,L04787 GFR/1.73 sq M predicted among blacks MDRD [...] [email or web address]. PATIENT NOT FASTINGP ERFORMED BY: [facility] Bojooj2220 [facility] [id number] Information: 862506,N38993 GFR/1.73 sq M.predicted MDRD (S/P/Bld) [Vol rate/Area] mL/min/{1.73_m2} Normal [facility] Work Phone: Comment on above: PATIENT NOT FASTINGP ERFORMED BY: CB [facility] Fibhfz0261 [address] [facility] [place] [id number] Information: 056955,H63586 GFR/1.73 sq M.predicted MDRD vol rate/area mL/min/{1.73_m2} Normal [facility] Work Phone: Comment on above: PATIENT NOT FASTINGP ERFORMED BY: CB [facility] Yiklcv1361 [address] [facility] [id number] Information: 335355,P56039 Globulin mass conc (S) 2.5 g/dL Normal 1.5-4.5 [facility] Work Phone: Comment on above: PATIENT NOT FASTINGP ERFORMED BY: CB [facility] Srraay5046 [facility] [id number] Information: [id number] Glucose mass conc 88 mg/dL Normal 65-99 Compreh ensive Internal Medicine Work Phone: Comment on above: PATIENT NOT FASTINGP ERFORMED BY: CB [facility] Flactm0094 [facility] [id number] Information: [id number] Potassium molar conc 4.6 mmol/L Normal 3.5-5.2 [facility]: Comment on above: PATIENT NOT FASTINGP ERFORMED BY: CB [facility] Etzwwb2737 [facility] [id number] Information: [id number] Protein mass conc 6.9 g/dL Normal 6.0-8.5 Compreh ensive Internal Medicine Work Phone: Comment on above: PATIENT NOT FASTINGP ERFORMED BY: CB [facility] Dtxgke0877 [facility] [id number] Information: [id number] Sodium molar conc 140 mmol/L Normal 135-145 Compreh ensive Internal Medicine Work Phone: Comment on above: PATIENT NOT FASTINGP ERFORMED BY: ORTIZ Nilda Osvdop89[address] [place] [id number] Information: [id number] Urea nitrogen mass conc 9 mg/dL Normal 8- [facility] Work Phone: Comment on above: PATIENT NOT FASTINGP ERFORMED BY: ORTIZ LabCoaustyn Hsimlk0879 Rodriguez [facility] [place] [id number] Information: [id number] Urea nitrogen/Creatinine mass ratio 13 mg/mg Normal 11- [facility] Work Phone: Comment on above: PATIENT NOT FASTINGP ERFORMED BY: ORTIZ Ameyaaustyn CroweYstdqg5300 [facility] [place] [id number] Information: [id number] TSH (89957)Ordered By: Syste m Lead Athlete on 10-14-2010 Thyrotropin Qn 1.320 {uIU/mL} Normal 0.450-4.50 0 [facility] Work Phone: Comment on above: PATIENT NOT FASTINGP ERFORMED BY: ORTIZ MeenaAleksandr CroweJzvltb1519 [facility] [place] [id number] URINALYSIS W/O MICRO ([id number]) Ordered By: Digital Experience Manager on 10-14-2010 Appearance Nom (U) Clear Normal Compre hensive Internal Medicine Work Phone: Comment on above: PATIENT NOT FASTINGP ERFORMED BY: ORTIZ [facility] Oaqwxd2898 [address] [place] [id number] Bilirubin Ql (U) Negative Normal Comprehe nsive Internal Medicine Work Phone: Comment on above: PATIENT NOT FASTINGP ERFORMED BY: ORTIZ LabKellieaustyn CroweQrnrgr7864 [facility] [place] [id number] Color Nom (U) Yellow Normal Comprehensi ve Internal Medicine Work Phone: Comment on above: PATIENT NOT FASTINGP ERFORMED BY: ORTIZ Crowelin6370 [facility] [id number] Glucose Ql (U) Negative Normal Comprehens trupti Internal Medicine Work Phone: Comment on above: PATIENT NOT FASTINGP ERFORMED BY: ORTIZ Nilda Mshrar4622 [facility] [id number] Hemoglobin Ql (U) Negative Normal Compreh ensive Internal Medicine Work Phone: Comment on above: PATIENT NOT FASTINGP ERFORMED BY: ORTIZ Crowelin6370 [facility] [id number] Ketones Ql (U) Negative Normal Comprehens trupti Internal Medicine Work Phone: Comment on above: PATIENT NOT FASTINGP ERFORMED BY: ORTIZ Crowelin6370 [facility] [id number] Leukocyte esterase Test strip Ql (U) Negative Normal [facility] Work Phone: Comment on above: PATIENT NOT FASTINGP ERFORMED BY: ORTIZ Crowelin6370 [facility] [id number] Microscopic observation LM Nom (Urine sed) MICRON Normal [facility] Work Phone: Comment on above: Microscopic follows if indicated. PATIENT NOT FASTINGP ERFORMED BY: ORTIZ Crowelin6370 [facility] [id number] Nitrite Ql (U) Negative Normal Comprehens trupti Internal Medicine Work Phone: Comment on above: PATIENT NOT FASTINGP ERFORMED BY: ORTIZ Crowelin6370 [facility] [id number] pH (U) 6.5 [pH] Normal 5.0-7.5 [facility] Work Phone: Comment on above: PATIENT NOT FASTINGP ERFORMED BY: ORTIZ MeenaAleksandr CroweQjxmse4364 [facility] [id number] Protein Ql (U) Negative Normal Comprehens trupti Internal Medicine Work Phone: Comment on above: PATIENT NOT FASTINGP ERFORMED BY: ORTIZ Crowelin6370 [facility] [id number] Specific gravity Relative Density (U) 1.020 1 Normal 1.005-1.03 0 [facility] Work Phone: Comment on above: PATIENT NOT FASTINGP ERFORMED BY: ORTIZ Chester6370 [address] [facility] [id number] Urobilinogen Test strip mass conc (U) 0.2 mg/dL Normal 0.0-1.9 Comprehensiv e Internal Medicine Work Phone: Comment on above: PATIENT NOT FASTINGP ERFORMED BY: ORTIZ [facility] Hzumnl3773 [facility] [id number] VITAMIN B-12 (CYANOCOBALAMIN ) (15834)Ordered By: Digital Experience Manager on 10-14-2010 Cobalamin (Vitamin B12) mass conc 246 pg/mL Normal 211-946 [facility] Work Phone: Comment on above: PATIENT NOT FASTINGP ERFORMED BY: ORTIZ Hou Ogdjat7080 [facility] [id number] LIPID PANEL (87861)Ordered B y: Digital Experience Manager on 12-14-2009 Cholesterol in HDL mass conc 54 mg/dL Normal [facility] Work Phone: Comment on above: According to ATP-III Guidelines, HDL-C >59 mg/dL is considered anegative risk factor for CHD. PATIENT WAS FASTINGP ERFORMED BY: ORTIZ RobledoCo Ffwyfz4319 [facility] [id number] Information: [id number] Cholesterol in LDL mass conc 111 mg/dL Abnormal 0-99 [facility] Work Phone: Comment on above: PATIENT WAS FASTINGP ERFORMED BY: [facility] Ixssqb4839 [facility] [id number] Information: [id number] Cholesterol in LDL/Cholesterol in HDL mass ratio 2.1 {ratio_units} Normal 0.0-3.2 [facility] Work Phone: Comment on above: PATIENT WAS FASTINGP ERFORMED BY: [facility] Qfrqaj1015 [facility] [id number] Information: [id number] Cholesterol in VLDL mass conc 21 mg/dL Normal 5-40 [facility] Work Phone: Comment on above: PATIENT WAS FASTINGP ERFORMED BY: ORTIZ [facility] Shujgo8711 [facility] [id number] Information: [id number] Cholesterol mass conc 186 mg/dL Normal 100-199 Com prehensive Internal Medicine Work Phone: Comment on above: PATIENT WAS FASTINGP ERFORMED BY: [facility]CoRobert [facility] Johnson University HospitalComzii2861 [facility] [id number] Information: [id number] Triglyceride mass conc 103 mg/dL Normal 0-149 [facility] Work Phone: Comment on above: PATIENT WAS FASTINGP ERFORMED BY: [address] [id number] Information: [id number] TSH (15935)Ordered By: Syste m Lead Athlete on 12-14-2009 Thyrotropin Qn 1.680 {uIU/mL} Normal 0.450-4.50 0 [facility] Work Phone: Comment on above: PATIENT WAS FASTINGP ERFORMED BY: [facility]6370 [facility] [id number] CBC WITH MANUAL DIFF (82322) Ordered By: Digital Experience Manager on 12-13-2009 Basophils #/vol (Bld) 0.0 {x10E3/uL} Normal 0.0-0.2 [facility] Work Phone: Comment on above: PATIENT NOT FASTINGP ERFORMED BY: [facility] Bksidy5536 [facility] [id number] Information: [id number] Basophils/100 WBC (Bld) 0 % Normal 0-3 [facility] Work Phone: Comment on above: PATIENT NOT FASTINGP ERFORMED BY: [facility]6370 [facility] [id number] Information: [id number] Eosinophils #/vol (Bld) 0.0 {x10E3/uL} Normal 0.0-0.4 [facility] Work Phone: Comment on above: PATIENT NOT FASTINGP ERFORMED BY: ORTIZ [facility] Gqeehy8675 [facility] [id number] Information: [id number],[id number] Eosinophils/100 WBC (Bld) 0 % Normal 0-7 [facility] Work Phone: Comment on above: PATIENT NOT FASTINGP ERFORMED BY: LabCoJohn [place] 7960070 [facility] [id number] Information: [id number] Erythrocyte distribution width Ratio (RBC) 13.9 % Normal 11.7-15.0 [facility] Work Phone: Comment on above: PATIENT NOT FASTINGP ERFORMED BY: LabJohn [place] 1436670 [facility] [id number] Information: [id number] Hematocrit Volume Fraction (Bld) 38.9 % Normal 34.0-44.0 [facility] Work Phone: Comment on above: PATIENT NOT FASTINGP ERFORMED BY: ORTIZ LabCoJohn [place] 7960070 [facility] [id number] Information: [id number] Hemoglobin mass conc (Bld) 13.7 g/dL Normal 11.5-15.0 [facility] Work Phone: Comment on above: PATIENT NOT FASTINGP ERFORMED BY: LabCoRobert Wood Johnson University HospitalYhibxl4489 [facility] [id number] Information: [id number] Lymphocytes #/vol (Bld) 1.3 {x10E3/uL} Normal 0.7-4.5 [facility] Work Phone: Comment on above: PATIENT NOT FASTINGP ERFORMED BY: LabCoJohn [place] 7960070 [facility] [id number] Information: [id number] Lymphocytes/100 WBC (Bld) 20 % Normal 14-46 [facility] Work Phone: Comment on above: PATIENT NOT FASTINGP ERFORMED BY: ORTIZ Hou Zqlbhs8768 [facility] [id number] Information: 195694,[id number] MCH Entitic mass (RBC) 31.3 pg Normal 27.0-34.0 [facility] Internal Medicine Work Phone: Comment on above: PATIENT NOT FASTINGP ERFORMED BY: ORTIZ [address] [id number] Information: [id number],[id number] MCHC mass conc (RBC) 35.2 g/dL Normal 32.0-36.0 [facility] Internal Medicine Work Phone: Comment on above: PATIENT NOT FASTINGP ERFORMED BY: [address] [id number] Information: [id number] MCV Entitic volume (RBC) 89 fL Normal 80-98 [facility] Internal Medicine Work Phone: Comment on above: PATIENT NOT FASTINGP ERFORMED BY: Meena[address] [id number] Information: [id number] Monocytes #/vol (Bld) 0.4 {x10E3/uL} Normal 0.1-1.0 [facility] Work Phone: Comment on above: PATIENT NOT FASTINGP ERFORMED BY: [place] 9916570 [facility] [id number] Information: [id number] Monocytes/100 WBC (Bld) 6 % Normal 4-13 [facility] Work Phone: Comment on above: PATIENT NOT FASTINGP ERFORMED BY: [place] 9916570 [facility] [id number] Information: [id number] Neutrophils #/vol (Bld) 5.0 {x10E3/uL} Normal 1.8-7.8 [facility] Work Phone: Comment on above: PATIENT NOT FASTINGP ERFORMED BY: ORTIZ Chester6370 [facility] [id number] Information: [id number] Neutrophils/100 WBC (Bld) 74 % Normal 40-74 [facility] Work Phone: Comment on above: PATIENT NOT FASTINGP ERFORMED BY: ORTIZ RobledoCoaustyn CroweQimyzf5466 [facility] [id number] Information: [id number],[id number] Platelets #/vol (Bld) 228 {x10E3/uL} Normal 140-415 [facility] Internal Medicine Work Phone: Comment on above: PATIENT NOT FASTINGP ERFORMED BY: ORTIZ Hou Rhyzxv4003 [facility] [id number] Information: [id number] RBC #/vol (Bld) 4.38 {x10E6/uL} Normal 3.80-5.10 [facility] Internal Medicine Work Phone: Comment on above: PATIENT NOT FASTINGP ERFORMED BY: ORTIZ Crowelin6370 [facility] [id number] Information: [id number] WBC #/vol (Bld) 6.7 {x10E3/uL} Normal 4.0-10.5 [facility] Internal Medicine Work Phone: Comment on above: PATIENT NOT FASTINGP ERFORMED BY: ORTIZ [facility] Quajtu5363 [facility] [id number] Information: [id number] METABOLIC PANEL, COMPREHENSI VE (05058)Ordered By: Digital Experience Manager on 12-13-2009 Albumin mass conc 4.1 g/dL Normal 3.5-4.8 Compreh [facility] Internal Medicine Work Phone: Comment on above: PATIENT NOT FASTINGP ERFORMED BY: ORTIZ [facility] Aupeor5135 [facility] [id number] Albumin/Globulin mass ratio 1.7 {ratio} Normal 1.1-2.5 [facility] Work Phone: Comment on above: PATIENT NOT FASTINGP ERFORMED BY: ORTIZ LabCoaustyn ChesterJzrylo9990 [address] [place] [id number] ALP enzyme act/vol 82 [iU]/L Normal 25-165 [facility] Internal [facility] Work Phone: Comment on above: PATIENT NOT FASTINGP ERFORMED BY: ORTIZ [facility] Gdzbjl6343 [facility]At[facility] Charlottein [place] [id number] ALT enzyme act/vol 12 [iU]/L Normal 0-40 [facility] Internal Medicine Work Phone: Comment on above: PATIENT NOT FASTINGP ERFORMED BY: ORTIZ LabCoaustyn Kuepry1285 [facility] [place] [id number] AST enzyme act/vol 19 [iU]/L Normal 0-40 [facility] Internal Medicine Work Phone: Comment on above: PATIENT NOT FASTINGP ERFORMED BY: ORTIZ LabKellierp Etxxrh8030 [facility] [id number] Bilirubin mass conc 0.2 mg/dL Normal 0.1-1.2 Compr [facility] Internal Medicine Work Phone: Comment on above: PATIENT NOT FASTINGP ERFORMED BY: ORTIZ Ameyaaustyn CroweJyqkje2734 [facility] [id number] Calcium mass conc 9.6 mg/dL Normal 8.6-10.2 Compreh ensive Internal Medicine Work Phone: Comment on above: PATIENT NOT FASTINGP ERFORMED BY: ORTIZ [facility] Guslfo6174 [facility] [place] [id number] Chloride molar conc 104 mmol/L Normal 97-108 Compr ensive Internal Medicine Work Phone: Comment on above: PATIENT NOT FASTINGP ERFORMED BY: ORTIZ [facility] Milxrj8485 [address] [place] [id number] CO2 molar conc 25 mmol/L Normal 20-32 Comprehens trupti Internal Medicine Work Phone: Comment on above: PATIENT NOT FASTINGP ERFORMED BY: ORTIZ [facility] Flodhs9083 [facility] [place] [id number] Creatinine mass conc 0.71 mg/dL Normal 0.57-1.00 [facility] Work Phone: Comment on above: PATIENT NOT FASTINGP ERFORMED BY: ORTIZ [facility] Cagoew5494 [facility] [place] [id number] GFR/1.73 sq M predicted among blacks MDRD [...] [email or web address]. PATIENT NOT FASTINGP ERFORMED BY: [facility] Agzgda4327 Rodriguez [facility] [id number] GFR/1.73 sq M.predicted MDRD (S/P/Bld) [Vol rate/Area] mL/min/{1.73_m2} Normal [facility] Work Phone: Comment on above: PATIENT NOT FASTINGP ERFORMED BY: ORTIZ [facility] Zzpnpw4832 [facility] [id number] GFR/1.73 sq M.predicted MDRD vol rate/area mL/min/{1.73_m2} Normal [facility] Work Phone: Comment on above: PATIENT NOT FASTINGP ERFORMED BY: CB [facility] Ynsqab6763 [facility] [place] [id number] Globulin mass conc (S) 2.4 g/dL Normal 1.5-4.5 [facility] Work Phone: Comment on above: PATIENT NOT FASTINGP ERFORMED BY: CB [facility] Aqjzns1805 [address] [facility] [id number] Glucose mass conc 89 mg/dL Normal 65-99 Compreh [facility] Internal Medicine Work Phone: Comment on above: PATIENT NOT FASTINGP ERFORMED BY: ORTIZ [facility] Pkmjrc9036 [address] [facility] [id number] Potassium molar conc 5.0 mmol/L Normal 3.5-5.2 Comp rehensive Internal Medicine Work Phone: Comment on above: PATIENT NOT FASTINGP ERFORMED BY: ORTIZ [facility] Ngjvzq9554 [address] [facility] [id number] Protein mass conc 6.5 g/dL Normal 6.0-8.5 Compreh ensive Internal Medicine Work Phone: Comment on above: PATIENT NOT FASTINGP ERFORMED BY: ORTIZ [facility] Qacfpv0942 [address] [facility] [id number] Sodium molar conc 142 mmol/L Normal 135-145 Compreh ensive Internal Medicine Work Phone: Comment on above: PATIENT NOT FASTINGP ERFORMED BY: ORTIZ [facility] Fnicoe7863 [facility] [id number] Urea nitrogen mass conc 10 mg/dL Normal 5-26 [facility] Work Phone: Comment on above: PATIENT NOT FASTINGP ERFORMED BY: ORTIZ [facility] Hovmah8475 [facility] [id number] Urea nitrogen/Creatinine mass ratio 14 mg/mg Normal 8-27 [facility] Work Phone: Comment on above: PATIENT NOT FASTINGP ERFORMED BY: ORTIZ [facility] Xvnxsi1758 [facility] [id number] Urinalysis, Office ([id number])Or dered By: Radha Velez on 09-21-2008 Bilirubin [...] Bacteria identified Cx Nom (U) Escherichia coli [facility] Work Phone: Vital Signs Date Time Vital Sign Value Performing Clinician Facility 05-05-2019 10:14-0400 BMI (Body Mass Index) 33.02 kg/m2 Mirella Mccracken [facility] Internal Medicine Work Phone: 05-05-2019 10:14-0400 Body weight 74.16 kg Mirella Mccracken [facility] Internal Medicine Work Phone: 05-05-2019 10:14-0400 BP Diastolic 80 mm[Hg] Mirella Mccracken [facility] Internal Medicine Work Phone: Comment on above: Patient Position: Sitting; Cuff Location : Left Arm; Cuff Size: Large 05-05-2019 10:14-0400 BP Systolic 138 mm[Hg] Mirella Mccracken [facility] Internal Medicine Work Phone: Comment on above: Patient Position: Sitting; Cuff Location : Left Arm; Cuff Size: Large 05-05-2019 10:14-0400 BSA (Body Surface Area) 1.69 m2 Mirella Mccracken [facility] Internal Medicine Work Phone: 05-05-2019 10:14-0400 Height 149.86 cm [facility] Work Phone: 05-05-2019 10:14-0400 Pulse (Heart Rate) 68 /min Mirella Mccracken [facility] Internal Medicine Work Phone: Comment on above: Pattern: Regular 05-05-2019 10:14-0400 Pulse Oximetry 95 % Mirella Mccracken [facility] Internal Medicine Work Phone: Comment on above: Room air 05-05-2019 10:14-0400 Respiratory Rate 18 /min Mirella Mccracken [facility] Internal Medicine Work Phone: Comment on above: Pattern: Unlabored 03-15-2019 09:59-0400 BMI (Body Mass Index) 33.4 kg/m2 Mirella Mccracken [facility] Internal Medicine Work Phone: 03-15-2019 09:59-0400 Body weight 75.01 kg Mirella Mccracken [facility] Internal Medicine Work Phone: 03-15-2019 09:59-0400 BP Diastolic 82 mm[Hg] Mirella Mccracken [facility] Internal Medicine Work Phone: Comment on above: Patient Position: Sitting; Cuff Location : Left Arm; Cuff Size: Large 03-15-2019 09:59-0400 BP Systolic 168 mm[Hg] Mirella Mccracken [facility] Internal Medicine Work Phone: Comment on above: Patient Position: Sitting; Cuff Location : Left Arm; Cuff Size: Large 03-15-2019 09:59-0400 BSA (Body Surface Area) 1.7 m2 Mirella Mccracken [facility] Internal Medicine Work Phone: 03-15-2019 09:59-0400 Height 149.86 cm Mirella Mccracken [facility] Internal Medicine Work Phone: 03-15-2019 09:59-0400 Pulse (Heart Rate) 88 /min Mirella Mccracken [facility] Internal Medicine Work Phone: Comment on above: Pattern: Regular 03-15-2019 09:59-0400 Pulse Oximetry 98 % Mirella Mccracken [facility] Internal Medicine Work Phone: Comment [...] 14:35-0500 Body weight 64.92 kg Mirella Mccracken [facility] Internal Medicine Work Phone: 11-09-2017 14:35-0500 BP Diastolic 90 mm[Hg] Mirella Mccracken [facility] Internal Medicine Work Phone: Comment on above: Patient Position: Sitting; Cuff Location : Left Arm; Cuff Size: Large 11-09-2017 14:35-0500 BP Systolic 148 mm[Hg] Mirella Mccracken [facility] Internal Medicine Work Phone: Comment on above: Patient Position: Sitting; Cuff Location : Left Arm; Cuff Size: Large 11-09-2017 14:35-0500 BSA (Body Surface Area) 1.6 m2 Mirella Mccracken [facility] Internal Medicine Work Phone: 11-09-2017 14:35-0500 Height 149.86 cm Mirella Mccracken [facility] Internal Medicine Work Phone: 11-09-2017 14:35-0500 Pulse (Heart Rate) 67 /min Mirella Mccracken [facility] Internal Medicine Work Phone: Comment on above: Pattern: Regular 11-09-2017 14:35-0500 Pulse Oximetry 98 % Mirella Mccracken [facility] Internal Medicine Work Phone: Comment on above: Room air 11-09-2017 14:35-0500 Respiratory Rate 18 /min Mirella Mccracken [facility] Internal Medicine Work Phone: Comment on above: Pattern: Unlabored 11-09-2017 14:35-0500 Weight 64.92 kg Mirella Mccracken [facility] Internal Medicine Work Phone: 10-15-2017 09:58-0500 BMI (Body Mass Index) 28.91 kg/m2 Mirella Mccracken [facility] Internal Medicine Work Phone: 10-15-2017 09:58-0500 Body weight 64.92 kg Mirella Mccracken [facility] Internal Medicine Work Phone: 10-15-2017 09:58-0500 BP Diastolic 78 mm[Hg] Mirella Mccracken [facility] Internal Medicine Work Phone: Comment on above: Patient Position: Sitting; Cuff Location : Left Arm; Cuff Size: Large 10-15-2017 09:58-0500 BP Systolic 146 mm[Hg] Mirella Mccracken [facility] Internal Medicine Work Phone: Comment on above: Patient Position: Sitting; Cuff Location : Left Arm; Cuff Size: Large 10-15-2017 09:58-0500 BSA (Body Surface Area) 1.6 m2 Mirella Mccracken [facility] Internal Medicine Work Phone: 10-15-2017 09:58-0500 Height 149.86 cm Mirella Mccracken [facility] Internal Medicine Work Phone: 10-15-2017 09:58-0500 Pulse (Heart Rate) 74 /min Mirella Mccracken [facility] Internal Medicine Work Phone: Comment on above: Pattern: Regular 10-15-2017 09:58-0500 Pulse Oximetry 99 % Mirella Mccracken [facility] Internal Medicine Work Phone: Comment on above: Room air 10-15-2017 09:58-0500 Respiratory Rate 18 /min Mirella Mccracken [facility] Internal Medicine Work Phone: Comment on above: Pattern: Unlabored 10-15-2017 09:58-0500 Weight 64.92 kg Mirella Mccracken [facility] Internal Medicine Work Phone: 09-18-2017 09:08-0500 BMI (Body Mass Index) 28.91 kg/m2 Mirella Mccracken [facility] Internal Medicine Work Phone: 09-18-2017 09:08-0500 Body weight 64.92 kg Mirella Mccracken [facility] Internal Medicine Work Phone: 09-18-2017 09:08-0500 BP Diastolic 82 mm[Hg] Mirella Mccracken [facility] Internal Medicine Work Phone: Comment on above: Patient Position: Sitting; Cuff Location : Left Arm; Cuff Size: Large 09-18-2017 09:08-0500 BP Systolic 128 mm[Hg] Mirella Mccracken [facility] Internal Medicine Work Phone: Comment on above: Patient Position: Sitting; Cuff Location : Left Arm; Cuff Size: Large 09-18-2017 09:08-0500 BSA (Body Surface Area) 1.6 m2 Mirella Mccracken [facility] Internal Medicine Work Phone: 09-18-2017 09:08-0500 Height 149.86 cm Mirella Mccracken [facility] Internal Medicine Work Phone: 09-18-2017 09:08-0500 Pulse (Heart Rate) 72 /min Mirella Mccracken [facility] Internal Medicine Work Phone: Comment on above: Pattern: Regular 09-18-2017 09:08-0500 Pulse Oximetry 98 % Mirella Mccracken [facility] Internal Medicine Work Phone: Comment on above: Room air 09-18-2017 09:08-0500 Respiratory Rate 18 /min Mirella Mccracken [facility] Internal Medicine Work Phone: Comment on above: Pattern: Unlabored 09-18-2017 09:08-0500 Weight 64.92 kg Mirella Mccracken [facility] Internal Medicine Work Phone: 06-05-2017 11:24-0400 BMI [...] (Body Mass Index) 29.29 kg/m2 Mirella Mccracken [facility] Internal Medicine Work Phone: 05-07-2017 [...] 05-07-2017 11:04-0400 Height 149.86 cm Mirella Mccracken [facility] Internal Medicine Work Phone: 05-07-2017 11:04-0400 Pulse (Heart Rate) 65 /min Mirella Mccracken [facility] Work Phone: Comment on above: Pattern: Regular 05-07-2017 11:04-0400 Pulse Oximetry 98 % Mirella Mccracken [facility] Work Phone: Comment on above: Room air 05-07-2017 11:04-0400 Respiratory Rate 18 /min Mirella Mccracken [facility] Internal Medicine Work Phone: Comment on above: Pattern: Unlabored 05-07-2017 11:04-0400 Weight 65.77 kg Mirella Mccracken [facility] Internal Medicine Work Phone: 03-26-2017 08:06-0400 BMI (Body Mass Index) 29.29 kg/m2 Mirellaleatha Solano [facility] Internal Medicine Work Phone: 03-26-2017 08:06-0400 Body Temperature 97.5 [degF] Mirella Mccracken [facility] Internal Medicine Work Phone: Comment on above: Method: Temporal 03-26-2017 08:06-0400 Body weight 65.77 kg Mirella Mccracken [facility] Internal Medicine Work Phone: 03-26-2017 08:06-0400 BP Diastolic 84 mm[Hg] Mirella Mccracken [facility] Internal Medicine Work Phone: Comment on above: Patient Position: Sitting; Cuff Location : Left Arm; Cuff Size: Large 03-26-2017 08:06-0400 BP Systolic 126 mm[Hg] Mirella Mccracken [facility] Internal Medicine Work Phone: Comment on above: Patient Position: Sitting; Cuff Location : Left Arm; Cuff Size: Large 03-26-2017 08:06-0400 BSA (Body Surface Area) 1.61 m2 Mirella Mccracken [facility] Internal Medicine Work Phone: 03-26-2017 08:06-0400 Height 149.86 cm Mirella Mccracken [facility] Internal Medicine Work Phone: 03-26-2017 08:06-0400 Pulse (Heart Rate) 82 /min Mirella Mccracken [facility] Internal Medicine Work Phone: Comment on above: Pattern: Regular 03-26-2017 08:06-0400 Pulse Oximetry 98 % Mirella Mccracken [facility] Internal Medicine Work Phone: Comment on above: Room air 03-26-2017 08:06-0400 Respiratory Rate 16 /min Mirella Mccracken [facility] Internal Medicine Work Phone: Comment on above: Pattern: Unlabored 03-26-2017 08:06-0400 Weight 65.77 kg Mirella Mccracken [facility] Internal Medicine Work Phone: 12-25-2016 10:08-0400 BMI (Body Mass Index) 29.51 kg/m2 Mirella [facility] Internal Medicine Work Phone: 12-25-2016 10:08-0400 Body weight 66.28 kg Mirella Mccracken [facility] Internal Medicine Work Phone: 12-25-2016 10:08-0400 BP Diastolic 80 mm[Hg] Mirella Mccracken [facility] Internal Medicine Work Phone: Comment on above: Patient Position: Sitting; Cuff Location : Left Arm; Cuff Size: Large 12-25-2016 10:08-0400 BP Systolic 122 mm[Hg] Mirella Mccracken [facility] Internal Medicine Work Phone: Comment on above: Patient Position: Sitting; Cuff Location : Left Arm; Cuff Size: Large 12-25-2016 10:08-0400 BSA (Body Surface Area) 1.61 m2 Mirella Mccracken [facility] Internal Medicine Work Phone: 12-25-2016 10:08-0400 Height 149.86 cm Mirella Mccracken [facility] Internal Medicine Work Phone: 12-25-2016 10:08-0400 Pulse (Heart Rate) 69 /min Mirella Mccracken [facility] Internal Medicine Work Phone: Comment on above: Pattern: Regular 12-25-2016 10:08-0400 Pulse Oximetry 98 % Mirella Mccracken [facility] Internal Medicine Work Phone: Comment on above: Room air 12-25-2016 10:08-0400 Respiratory Rate 18 /min Mirella Mccracken [facility] Internal Medicine Work Phone: Comment on above: Pattern: Unlabored 12-25-2016 10:08-0400 Weight 66.28 kg Mirella Mccracken [facility] Internal Medicine Work Phone: 11-03-2016 14:09-0500 BSA (Body Surface Area) 1.59 m2 [facility] Work Phone: 09-25-2016 07:51-0500 BMI (Body Mass Index) 29.94 kg/m2 Mirella Mccracken [facility] Internal Medicine Work Phone: 09-25-2016 07:51-0500 Body Temperature 97.6 [degF] Mirella Mccracken [facility] Internal Medicine Work Phone: 09-25-2016 07:51-0500 Body weight 67.25 kg Mirella Mccracken [facility] Internal Medicine Work Phone: 09-25-2016 07:51-0500 BP Diastolic 78 mm[Hg] Mirella Mccracken [facility] Internal Medicine Work Phone: Comment on above: Patient Position: Sitting; Cuff Location : Left Arm; Cuff Size: Standard 09-25-2016 07:51-0500 BP Systolic 122 mm[Hg] Mirella Mccracken [facility] Internal Medicine Work Phone: Comment on above: Patient Position: Sitting; Cuff Location : Left Arm; Cuff Size: Standard 09-25-2016 07:51-0500 BSA (Body Surface Area) 1.62 m2 Mirella Mccracken [facility] Internal Medicine Work Phone: 09-25-2016 07:51-0500 Height 149.86 cm Mirella Mccracken [facility] Internal Medicine Work Phone: 09-25-2016 07:51-0500 Pulse (Heart Rate) 94 /min Mirella Mccracken [facility] Internal Medicine Work Phone: Comment on above: Pattern: Regular 09-25-2016 07:51-0500 Pulse Oximetry 96 % Mirella Mccarcken [facility] Internal Medicine Work Phone: Comment on above: Room air 09-25-2016 07:51-0500 Respiratory Rate 17 /min Mirella Mccracken [facility] Internal Medicine Work Phone: Comment on above: Pattern: Unlabored 09-25-2016 07:51-0500 Weight 67.25 kg Mirella Mccracken [facility] Internal Medicine Work Phone: 06-25-2016 08:52-0400 BMI (Body Mass Index) 29.54 kg/m2 Mirella Mccracken [facility] Internal Medicine Work Phone: 06-25-2016 08:52-0400 Body weight 66.34 kg Mirella Mccracken [facility] Internal Medicine Work Phone: 06-25-2016 08:52-0400 BP Diastolic 60 mm[Hg] Mirella Mccracken [facility] Internal Medicine Work Phone: Comment on above: Patient Position: Sitting; Cuff Location : Left Arm; Cuff Size: Standard 06-25-2016 08:52-0400 BP Systolic 110 mm[Hg] Mirella Mccracken [facility] Internal Medicine Work Phone: Comment on above: Patient Position: Sitting; Cuff Location : Left Arm; Cuff Size: Standard 06-25-2016 08:52-0400 BSA (Body Surface Area) 1.61 m2 Mirella Mccracken [facility] Internal Medicine Work Phone: 06-25-2016 08:52-0400 Height 149.86 cm Mirella Mccracken [facility] Internal Medicine Work Phone: 06-25-2016 08:52-0400 Pulse (Heart Rate) 72 /min Mirella Mccracken [facility] Internal Medicine Work Phone: Comment on above: Pattern: Regular 06-25-2016 08:52-0400 Pulse Oximetry 100 % Mirella Mccracken [facility] Internal Medicine Work Phone: Comment on above: Room air 06-25-2016 08:52-0400 Respiratory Rate 18 /min Mirella Mccracken [facility] Internal Medicine Work Phone: Comment on above: Pattern: Unlabored 06-25-2016 08:52-0400 Weight 66.34 kg Mirella Mccracken [facility] Internal Medicine Work Phone: 05-21-2016 08:08-0400 BMI (Body Mass Index) 29.39 kg/m2 Mirella Mccracken [facility] Internal Medicine Work Phone: 05-21-2016 08:08-0400 Body Temperature 97.2 [degF] Mirella Mccracken [facility] Internal Medicine Work Phone: 05-21-2016 08:08-0400 Body weight 66 kg Mirella Mccracken [facility] Internal Medicine Work Phone: 05-21-2016 08:08-0400 BP Diastolic 82 mm[Hg] Mirella Mccracken [facility] Internal Medicine Work Phone: Comment on above: Patient Position: Sitting; Cuff Location : Left Arm; Cuff Size: Standard 05-21-2016 08:08-0400 BP Systolic 124 mm[Hg] Mirella Mccracken [facility] Internal Medicine Work Phone: Comment on above: Patient Position: Sitting; Cuff Location : Left Arm; Cuff Size: Standard 05-21-2016 08:08-0400 BSA (Body Surface Area) 1.61 m2 Mirella Mccracken [facility] Internal Medicine Work Phone: 05-21-2016 08:08-0400 Height 149.86 cm Mirella Mccracken [facility] Internal Medicine Work Phone: 05-21-2016 08:08-0400 Pulse (Heart Rate) 80 /min Mirella Mccracken [facility] Internal Medicine Work Phone: Comment on above: Pattern: Regular 05-21-2016 08:08-0400 Pulse Oximetry 98 % Mirella Mccracken [facility] Internal Medicine Work Phone: Comment on above: Room air 05-21-2016 08:08-0400 Respiratory Rate 16 /min Mirella Mccracken [facility] Internal Medicine Work Phone: Comment on above: Pattern: Unlabored 05-21-2016 08:08-0400 Weight 66 kg Mirella Mccracken [facility] Internal Medicine Work Phone: 01-04-2016 09:52-0400 BMI (Body Mass Index) 29.59 kg/m2 Mirella Mccracken [facility] Internal Medicine Work Phone: 01-04-2016 09:52-0400 Body weight 66.45 kg Mirella Mccracken [facility] Internal Medicine Work Phone: 01-04-2016 09:52-0400 BP Diastolic 64 mm[Hg] Mirella Mccracken [facility] Internal Medicine Work Phone: Comment on above: Patient Position: Sitting; Cuff Location : Left Arm; Cuff Size: Standard 01-04-2016 09:52-0400 BP Systolic 110 mm[Hg] Mirella Mccracken [facility] Internal Medicine Work Phone: Comment on above: Patient Position: Sitting; Cuff Location : Left Arm; Cuff Size: Standard 01-04-2016 09:52-0400 BSA (Body Surface Area) 1.62 m2 Mirella Mccracken [facility] Internal Medicine Work Phone: 01-04-2016 09:52-0400 Height 149.86 cm Mirella Mccracken [facility] Internal Medicine Work Phone: 01-04-2016 09:52-0400 Pulse (Heart Rate) 64 /min Mirella Mccracken [facility] Internal Medicine Work Phone: Comment on above: Pattern: Regular 01-04-2016 09:52-0400 Pulse Oximetry 97 % Mirella Mccracken [facility] Internal Medicine Work Phone: Comment on above: Room air 01-04-2016 09:52-0400 Respiratory Rate 18 /min Mirella Mccracken [facility] Internal Medicine Work Phone: Comment on above: Pattern: Unlabored 01-04-2016 09:52-0400 Weight 66.45 kg Mirella Mccracken [facility] Internal Medicine Work Phone: 12-06-2015 09:19-0400 BMI (Body Mass Index) 29.89 kg/m2 Mirella Mccracken [facility] Internal Medicine Work Phone: 12-06-2015 09:19-0400 Body weight 67.13 kg Mirella Mccracken [facility] Internal Medicine Work Phone: 12-06-2015 09:19-0400 BP Diastolic 78 mm[Hg] Mirella Mccracken [facility] Internal Medicine Work Phone: Comment on above: Patient Position: Sitting; Cuff Location : Left Arm; Cuff Size: Large 12-06-2015 09:19-0400 BP Systolic 122 mm[Hg] Mirella Mccracken [facility] Internal Medicine Work Phone: Comment on above: Patient Position: Sitting; Cuff Location : Left Arm; Cuff Size: Large 12-06-2015 09:19-0400 BSA (Body Surface Area) 1.62 m2 Mirella Mccracken [facility] Internal Medicine Work Phone: 12-06-2015 09:19-0400 Height 149.86 cm Mirella Mccracken [facility] Internal Medicine Work Phone: 12-06-2015 09:19-0400 Pulse (Heart Rate) 73 /min Mirella Mccracken [facility] Internal Medicine Work Phone: Comment on above: Pattern: Regular 12-06-2015 09:19-0400 Pulse Oximetry 99 % Mirella Mccracken [facility] Internal Medicine Work Phone: Comment on above: Room air 12-06-2015 09:19-0400 Respiratory Rate 18 /min Mirella Mccracken [facility] Internal Medicine Work Phone: Comment on above: Pattern: Unlabored 12-06-2015 09:19-0400 Weight 67.13 kg Mirella Mccracken [facility] Internal Medicine Work Phone: 11-29-2015 09:09-0400 BMI (Body Mass Index) 29.72 kg/m2 Mirella Mccracken [facility] Internal Medicine Work Phone: 11-29-2015 09:09-0400 Body Temperature 98.2 [degF] Mirella Mccracken [facility] Internal Medicine Work Phone: Comment on above: Method: Oral 11-29-2015 09:09-0400 Body weight 66.74 kg Mirella Mccracken [facility] Internal Medicine Work Phone: 11-29-2015 09:09-0400 BP Diastolic 58 mm[Hg] Mirella Mccracken [facility] Internal Medicine Work Phone: Comment on above: Patient Position: Sitting; Cuff Location : Left Arm; Cuff Size: Large 11-29-2015 09:09-0400 BP Systolic 100 mm[Hg] Mirella Mccracken [facility] Internal Medicine Work Phone: Comment on above: Patient Position: Sitting; Cuff Location : Left Arm; Cuff Size: Large 11-29-2015 09:09-0400 BSA (Body Surface Area) 1.62 m2 Mirella Mccracken [facility] Internal Medicine Work Phone: 11-29-2015 09:09-0400 Height 149.86 cm Mirella Mccracken [facility] Internal Medicine Work Phone: 11-29-2015 09:09-0400 Pulse (Heart Rate) 71 /min Mirella Mccracken [facility] Internal Medicine Work Phone: Comment on above: Pattern: Regular 11-29-2015 09:09-0400 Pulse Oximetry 98 % Mirella Mccracken [facility] Internal Medicine Work Phone: Comment on above: Room air 11-29-2015 09:09-0400 Respiratory Rate 18 /min Mirella Mccracken [facility] Internal Medicine Work Phone: Comment on above: Pattern: Unlabored 11-29-2015 09:09-0400 Weight 66.74 kg Mirella Mccracken [facility] Internal Medicine Work Phone: 10-24-2015 10:01-0500 BMI (Body Mass Index) 30.78 kg/m2 Mirella Mccracken [facility] Internal Medicine Work Phone: Comment on above: [facility] 10:01-0500 Body weight 69.12 kg Mirella Mccracken [facility] Internal Medicine Work Phone: Comment on above: [facility] 10-24-2015 10:01-0500 BP Diastolic 82 mm[Hg] [facility] Work Phone: Comment on above: Patient Position: Sitting; Cuff Location : Left Arm; Cuff Size: Large [facility]-24-2015 10:01-0500 BP Systolic 124 mm[Hg] Mirella Mccracken [facility] Internal Medicine Work Phone: Comment on above: Patient Position: Sitting; Cuff Location : Left Arm; Cuff Size: Large [facility] 10-24-2015 10:01-0500 BSA (Body Surface Area) 1.64 m2 [facility] Work Phone: Comment on above: [facility] 10-24-2015 10:01-0500 Height 149.86 cm Mirella [facility] Internal Medicine Work Phone: Comment on above: [facility] 10-24-2015 10:01-0500 Pulse (Heart Rate) 66 /min Mirella Mccracken [facility] Internal Medicine Work Phone: Comment on above: Pattern: Regular [facility] 10-24-2015 10:01-0500 Pulse Oximetry 98 % [facility] Work Phone: Comment on above: Room air [facility]stein [facility] 10-24-2015 10:01-0500 Respiratory Rate 18 /min [facility] Work Phone: Comment on above: Pattern: Unlabored Dr[facility] 10-24-2015 10:01-0500 Weight 69.12 kg Mirella Mccracken [facility] Internal Medicine Work Phone: Comment on above: [facility] 07-26-2015 10:22-0500 BMI (Body Mass Index) 32.32 kg/m2 Mirella Searson [facility] Internal Medicine Work Phone: 07-26-2015 10:22-0500 Body weight 72.58 kg Mirellazac Mccracken [facility] Internal Medicine Work Phone: 07-26-2015 10:22-0500 BP Diastolic 80 mm[Hg] [facility] Work Phone: Comment on above: Patient Position: Sitting; Cuff Location : Left Arm; Cuff Size: Large 07-26-2015 10:22-0500 BP Systolic 138 mm[Hg] [facility] Work Phone: Comment on above: Patient Position: Sitting; Cuff Location : Left Arm; Cuff Size: Large 07-26-2015 10:22-0500 BSA (Body Surface Area) 1.68 m2 Mirella Mccracken [facility] Internal Medicine Work Phone: 07-26-2015 10:22-0500 Height 149.86 cm [facility] Work Phone: 07-26-2015 10:22-0500 Pulse [...] (Body Mass Index) 31.02 kg/m2 Mirella Solano [facility] Internal Medicine Work Phone: 04-19-2015 10:10-0400 Body Temperature 97.5 [degF] Mirella Mccracken [facility] Internal Medicine Work Phone: Comment on above: Method: Temporal 04-19-2015 10:10-0400 Body weight 69.67 kg Mirella Mccracken [facility] Internal Medicine Work Phone: 04-19-2015 10:10-0400 BP Diastolic 82 mm[Hg] Mirella Mccracken [facility] Internal Medicine Work Phone: Comment on above: Patient Position: Sitting; Cuff Location : Left Arm; Cuff Size: Standard 04-19-2015 10:10-0400 BP Systolic 124 mm[Hg] Mirella Mccracken [facility] Internal Medicine Work Phone: Comment on above: Patient Position: Sitting; Cuff Location : Left Arm; Cuff Size: Standard 04-19-2015 10:10-0400 BSA (Body Surface Area) 1.65 m2 Mirella Mccracken [facility] Internal Medicine Work Phone: 04-19-2015 10:10-0400 Height 149.86 cm Mirella Mccracken [facility] Internal Medicine Work Phone: 04-19-2015 10:10-0400 Pulse (Heart Rate) 62 /min Mirella Mccracken [facility] Internal Medicine Work Phone: Comment on above: Pattern: Regular 04-19-2015 10:10-0400 Pulse Oximetry 98 % Mirella Mccracken [facility] Internal Medicine Work Phone: Comment on above: Room air 04-19-2015 10:10-0400 Respiratory Rate 16 /min Mirella Mccracken [facility] Internal Medicine Work Phone: Comment on above: Pattern: Unlabored 04-19-2015 10:10-0400 Weight 69.67 kg Mirella Mccracken [facility] Internal Medicine Work Phone: 01-11-2015 10:29-0400 BMI (Body Mass Index) 31.2 kg/m2 Mirella Solano [facility] Internal Medicine Work Phone: 01-11-2015 10:29-0400 Body weight 70.08 kg Mirella [facility] Medicine Work Phone: 01-11-2015 10:29-0400 BP Diastolic 80 mm[Hg] Mirella [facility] Work Phone: Comment on above: Patient Position: Sitting; Cuff Location : Left Arm; Cuff Size: Standard 01-11-2015 10:29-0400 BP Systolic 128 mm[Hg] Mirella Mccracken [facility] Internal Medicine Work Phone: Comment on above: Patient Position: Sitting; Cuff Location : Left Arm; Cuff Size: Standard 01-11-2015 10:29-0400 BSA (Body Surface Area) 1.65 m2 Mirella Mccracken [facility] Internal Medicine Work Phone: 01-11-2015 10:29-0400 Height 149.86 cm Mirella Mccracken [facility] Internal Medicine Work Phone: 01-11-2015 10:29-0400 Pulse (Heart Rate) 56 /min Mirella Mccracken [facility] Internal Medicine Work Phone: Comment on above: Pattern: Regular 01-11-2015 10:29-0400 Pulse Oximetry 98 % Mirella Mccracken [facility] Internal Medicine Work Phone: Comment on above: Room air 01-11-2015 10:29-0400 Respiratory Rate 18 /min Mirella [facility] Internal Medicine Work Phone: Comment on above: Pattern: Unlabored 01-11-2015 10:29-0400 Weight 70.08 kg Mirella [facility] Internal Medicine Work Phone: 10-31-2014 11:54-0500 Body Temperature 98.4 [degF] Mirella Mccracken [facility] Internal Medicine Work Phone: Comment on above: Method: Oral 10-31-2014 11:54-0500 Body weight 70.76 kg Mirella [facility] Internal Medicine Work Phone: 10-31-2014 11:54-0500 BP Diastolic 64 mm[Hg] Mirella Mccracken [facility] Internal Medicine Work Phone: Comment on above: Patient Position: Sitting; Cuff Location : Left Arm; Cuff Size: Standard 10-31-2014 11:54-0500 BP Systolic 116 mm[Hg] Mirella Mccracken [facility] Internal Medicine Work Phone: Comment on above: Patient Position: Sitting; Cuff Location : Left Arm; Cuff Size: Standard 10-31-2014 11:54-0500 Pulse (Heart Rate) 52 /min Mirella Mccracken [facility] Internal Medicine Work Phone: Comment on above: Pattern: Regular 10-31-2014 11:54-0500 Pulse Oximetry 98 % Mirella Mccracken [facility] Internal Medicine Work Phone: Comment on above: Room air 10-31-2014 11:54-0500 Respiratory Rate 18 /min Mirella Mccracken [facility] Internal Medicine Work Phone: Comment on above: Pattern: Unlabored 10-31-2014 11:54-0500 Weight 70.76 kg Mirella Mccracken [facility] Internal Medicine Work Phone: 10-12-2014 10:10-0500 Body Temperature 96.2 [degF] Mirella Mccracken [facility] Internal Medicine Work Phone: Comment on above: Method: Oral [facility] [id number] 10-12-2014 10:10-0500 Body weight 70.76 kg Mirella Mccracken [facility] Internal Medicine Work Phone: Comment on above: [facility] [employer] [facility] [id number] 10-12-2014 10:10-0500 BP Diastolic 82 mm[Hg] Mirella Mccracken [facility] Internal Medicine Work Phone: Comment on above: Patient Position: Sitting; Cuff Location : Left Arm; Cuff Size: Large [facility] [id number] 10-12-2014 10:10-0500 BP Systolic 132 mm[Hg] Mirella Mccracken [facility] Internal Medicine Work Phone: Comment on above: Patient Position: Sitting; Cuff Location : Left Arm; Cuff Size: Large [facility] [id number] 10-12-2014 10:10-0500 Pulse (Heart Rate) 61 /min Mirella Mccracken [facility] Work Phone: Comment on above: Pattern: Regular [facility] [facility] [id number] 10-12-2014 10:10-0500 Pulse Oximetry 96 % Mirella Mccracken [facility] Work Phone: Comment on above: Room air [facility] [facility] [id number] 10-12-2014 10:10-0500 Respiratory Rate 18 /min Mirella Mccracken [facility] Work Phone: Comment on above: Pattern: Unlabored [employer] [facility] [id number] 10-12-2014 10:10-0500 Weight 70.76 kg Mirella Mccracken [facility] Work Phone: Comment on above: [facility] 03/2014[facility] 08-31-2014 11:25-0500 Body weight 68.66 kg Mirella [...] 14:10-0500 Body Temperature 97.3 [degF] Mirella Mccracken [facility] Internal Medicine Work Phone: Comment on above: Method: Oral 08-14-2014 14:10-0500 Body weight 69.15 kg Mirella Mccracken [facility] Internal Medicine Work Phone: 08-14-2014 14:10-0500 BP Diastolic 72 mm[Hg] Mirella Mccracken [facility] Internal Medicine Work Phone: Comment on above: Patient Position: Sitting; Cuff Location : Left Arm; Cuff Size: Standard 08-14-2014 14:10-0500 BP Systolic 132 mm[Hg] Mirella Mccracken [facility] Internal Medicine Work Phone: Comment on above: Patient Position: Sitting; Cuff Location : Left Arm; Cuff Size: Standard 08-14-2014 14:10-0500 Pulse (Heart Rate) 53 /min Mirella Mccracken [facility] Internal Medicine Work Phone: Comment on above: Pattern: Regular 08-14-2014 14:10-0500 Pulse Oximetry 97 % Mirella Mccracken [facility] Internal Medicine Work Phone: Comment on above: Room air 08-14-2014 14:10-0500 Respiratory Rate 16 /min Mirella Mccracken [facility] Internal Medicine Work Phone: Comment on above: Pattern: Unlabored 08-14-2014 14:10-0500 Weight 69.15 kg Mirella Mccracken [facility] Internal Medicine Work Phone: 07-26-2014 10:15-0500 BMI (Body Mass Index) 30.55 kg/m2 Mirella Mccracken [facility] Internal Medicine Work Phone: 07-26-2014 10:15-0500 Body Temperature 97.4 [degF] Mirella Mccracken [facility] Internal Medicine Work Phone: Comment on above: Method: Oral 07-26-2014 10:15-0500 Body weight 68.61 kg Mirella Mccracken [facility] Internal Medicine Work Phone: 07-26-2014 10:15-0500 BP Diastolic 70 mm[Hg] Mirella Mccracken [facility] Internal Medicine Work Phone: Comment on above: Patient Position: Sitting; Cuff Location : Left Arm; Cuff Size: Standard 07-26-2014 10:15-0500 BP Systolic 110 mm[Hg] Mirella Mccracken [facility] Internal Medicine Work Phone: Comment on above: Patient Position: Sitting; Cuff Location : Left Arm; Cuff Size: Standard 07-26-2014 10:15-0500 BSA (Body Surface Area) 1.64 m2 Mirella Mccracken [facility] Internal Medicine Work Phone: 07-26-2014 10:15-0500 Height 149.86 cm Mirella Mccracken [facility] Internal Medicine Work Phone: 07-26-2014 10:15-0500 Pulse (Heart Rate) 66 /min Mirella Mccracken [facility] Internal Medicine Work Phone: Comment on above: Pattern: Regular 07-26-2014 10:15-0500 Pulse Oximetry 95 % Mirella Mccracken [facility] Internal Medicine Work Phone: Comment on above: Room air 07-26-2014 10:15-0500 Respiratory Rate 15 /min Mirella Mccracken [facility] Internal Medicine Work Phone: 07-26-2014 10:15-0500 Weight 68.61 kg Mirella Mccracken [facility] Internal Medicine Work Phone: 07-25-2014 14:56-0500 BMI (Body Mass Index) 30.55 kg/m2 Mirella Mccracken [facility] Internal Medicine Work Phone: 07-25-2014 14:56-0500 Body weight 68.61 kg Mirella Mccracken [facility] Internal Medicine Work Phone: 07-25-2014 14:56-0500 BP Diastolic 80 mm[Hg] Mirella Mccracken [facility] Internal Medicine Work Phone: Comment on above: Patient Position: Sitting; Cuff Location : Left Arm; Cuff Size: Large 07-25-2014 14:56-0500 BP Systolic 140 mm[Hg] Mirella Mccracken [facility] Internal Medicine Work Phone: Comment on above: Patient Position: Sitting; Cuff Location : Left Arm; Cuff Size: Large 07-25-2014 14:56-0500 BSA (Body Surface Area) 1.64 m2 Mirella Mccracken [facility] Internal Medicine Work Phone: 07-25-2014 14:56-0500 Height 149.86 cm Mirella Mccracken [facility] Internal Medicine Work Phone: 07-25-2014 14:56-0500 Pulse (Heart Rate) 59 /min Mirella Mccracken [facility] Internal Medicine Work Phone: Comment on above: Pattern: Regular 07-25-2014 14:56-0500 Pulse Oximetry 98 % Mirella Mccracken [facility] Internal Medicine Work Phone: Comment on above: Room air 07-25-2014 14:56-0500 Respiratory Rate 18 /min Mirella Mccracken [facility] Internal Medicine Work Phone: Comment on above: Pattern: Unlabored 07-25-2014 14:56-0500 Weight 68.61 kg Mirella Mccracken [facility] Internal Medicine Work Phone: 07-13-2014 12:20-0400 BMI (Body Mass Index) 30.5 kg/m2 Mirella Mccracken [facility] Internal Medicine Work Phone: 07-13-2014 12:20-0400 Body weight 68.49 kg Mirella Mccracken [facility] Internal Medicine Work Phone: 07-13-2014 12:20-0400 BP Diastolic 78 mm[Hg] Mirella Mccracken [facility] Internal Medicine Work Phone: Comment on above: Patient Position: Sitting; Cuff Location : Left Arm; Cuff Size: Large 07-13-2014 12:20-0400 BP Systolic 138 mm[Hg] Mirella Mccracken [facility] Internal Medicine Work Phone: Comment on above: Patient Position: Sitting; Cuff Location : Left Arm; Cuff Size: Large 07-13-2014 12:20-0400 BSA (Body Surface Area) 1.64 m2 Mirella Mccracken [facility] Internal Medicine Work Phone: 07-13-2014 12:20-0400 Height 149.86 cm Mirella Mccracken [facility] Internal Medicine Work Phone: 07-13-2014 12:20-0400 Pulse (Heart Rate) 58 /min Mirella Mccracken [facility] Internal Medicine Work Phone: Comment on above: Pattern: Regular 07-13-2014 12:20-0400 Pulse Oximetry 96 % Mirella Mccracken [facility] Internal Medicine Work Phone: Comment on above: Room air 07-13-2014 12:20-0400 Respiratory Rate 20 /min Mirella Mccracken [facility] Internal Medicine Work Phone: Comment on above: Pattern: Unlabored 07-13-2014 12:20-0400 Weight 68.49 kg Mirella Mccracken [facility] Internal Medicine Work Phone: 04-17-2014 11:27-0400 BMI (Body Mass Index) 30.59 kg/m2 Mirella Mccracken [facility] Internal Medicine Work Phone: 04-17-2014 11:27-0400 Body weight 68.69 kg Mirella Mccracken [facility] Internal Medicine Work Phone: 04-17-2014 11:27-0400 BP Diastolic 70 mm[Hg] Mirella Mccracken [facility] Internal Medicine Work Phone: Comment on above: Patient Position: Sitting; Cuff Location : Left Arm; Cuff Size: Large 04-17-2014 11:27-0400 BP Systolic 124 mm[Hg] Mirella Mccracken [facility] Internal Medicine Work Phone: Comment on above: Patient Position: Sitting; Cuff Location : Left Arm; Cuff Size: Large 04-17-2014 11:27-0400 BSA (Body Surface Area) 1.64 m2 Mirella Mccracken [facility] Internal Medicine Work Phone: 04-17-2014 11:27-0400 Height 149.86 cm Mirella Mccracken [facility] Internal Medicine Work Phone: 04-17-2014 11:27-0400 Pulse (Heart Rate) 72 /min Mirella Mccracken [facility] Internal Medicine Work Phone: Comment on above: Pattern: Regular 04-17-2014 11:27-0400 Pulse Oximetry 97 % Mirella Mccracken [facility] Internal Medicine Work Phone: Comment on above: Room air 04-17-2014 11:27-0400 Respiratory Rate 18 /min Mirella Mccracken [facility] Internal Medicine Work Phone: Comment on above: Pattern: Unlabored 04-17-2014 11:270400 Weight 68.69 kg Mirella Mccracken [facility] Internal Medicine Work Phone: 04-06-2014 11:09-0400 BMI (Body Mass Index) 30.59 kg/m2 Mirella Mccracken [facility] Internal Medicine Work Phone: 04-06-2014 11:040 Body weight 68.69 kg Mirella Mccracken [facility] Internal Medicine Work Phone: 04-06-2014 11:09-0400 BP Diastolic 80 mm[Hg] Mirella Mccracken [facility] Internal Medicine Work Phone: Comment on above: Patient Position: Sitting; Cuff Location : Left Arm; Cuff Size: Standard 04-06-2014 11:090400 BP Systolic 142 mm[Hg] Mirella Mccracken [facility] Internal Medicine Work Phone: Comment on above: Patient Position: Sitting; Cuff Location : Left Arm; Cuff Size: Standard 04-06-2014 11:090400 BSA (Body Surface Area) 1.64 m2 Mirella Mccracken [facility] Internal Medicine Work Phone: 04-06-2014 11:09040 Height 149.86 cm Mirella Mccracken [facility] Internal Medicine Work Phone: 04-06-2014 11:09-0400 Pulse (Heart Rate) 73 /min Mirella Mccracken [facility] Internal Medicine Work Phone: Comment on above: Pattern: Regular 04-06-2014 11:09040 Pulse Oximetry 97 % Mirella Mccracken [facility] Internal Medicine Work Phone: Comment on above: Room air 04-06-2014 11:090400 Respiratory Rate 18 /min Mirella Mccracken [facility] Internal Medicine Work Phone: Comment on above: Pattern: Unlabored 04-06-2014 11:0400 Weight 68.69 kg Mirella Mccracken [facility] Internal Medicine Work Phone: 12-30-2013 10:270400 BMI (Body Mass Index) 32.03 kg/m2 Mirella [facility] Internal Medicine Work Phone: 12-30-2013 10:27-0400 Body Temperature 98.2 [degF] Mirella Mccracken [facility] Internal Medicine Work Phone: Comment on above: Method: Oral 12-30-2013 10:0400 Body weight 71.92 kg Mirella Mccracken [facility] Internal Medicine Work Phone: 12-30-2013 10:270400 BP Diastolic 70 mm[Hg] Mirella Mccracken [facility] Internal Medicine Work Phone: Comment on above: Patient Position: Sitting; Cuff Location : Left Arm; Cuff Size: Large 12-30-2013 10:270400 BP Systolic 120 mm[Hg] Mirella Mccracken [facility] Internal Medicine Work Phone: Comment on above: Patient Position: Sitting; Cuff Location : Left Arm; Cuff Size: Large 12-30-2013 10:0400 BSA (Body Surface Area) 1.67 m2 Mirella Mccracken [facility] Internal Medicine Work Phone: 12-30-2013 10:270400 Height 149.86 cm Mirella Mccracken [facility] Internal Medicine Work Phone: 12-30-2013 10:27-0400 Pulse (Heart Rate) 66 /min Mirella Mccracken [facility] Internal Medicine Work Phone: Comment on above: Pattern: Regular 12-30-2013 10:0400 Pulse Oximetry 97 % Mirella Mccracken [facility] Internal Medicine Work Phone: Comment on above: Room air 12-30-2013 10:0400 Respiratory Rate 20 /min Mirella Mccracken [facility] Internal Medicine Work Phone: Comment on above: Pattern: Unlabored 12-30-2013 10:0400 Weight 71.92 kg Mirella Mccracken [facility] Internal Medicine Work Phone: 12-22-2013 10:09-0400 BMI (Body Mass Index) 31.79 kg/m2 Mirella Mccracken [facility] Internal Medicine Work Phone: 12-22-2013 10:09-0400 Body Temperature 98.2 [degF] Mirella Mccracken [facility] Internal Medicine Work Phone: Comment on above: Method: Oral 12-22-2013 10:090400 Body weight 71.39 kg Mirella Mccracken [facility] Internal Medicine Work Phone: 12-22-2013 10:09-0400 BP Diastolic 60 mm[Hg] Mirella Mccracken [facility] Internal Medicine Work Phone: Comment on above: Patient Position: Sitting; Cuff Location : Left Arm; Cuff Size: Large 12-22-2013 10:090400 BP Systolic 104 mm[Hg] Mirella Mccracken [facility] Internal Medicine Work Phone: Comment on above: Patient Position: Sitting; Cuff Location : Left Arm; Cuff Size: Large 12-22-2013 10:090400 BSA (Body Surface Area) 1.67 m2 Mirella Mccracken [facility] Internal Medicine Work Phone: 12-22-2013 10:09-0400 Height 149.86 cm Mirella Mccracken [facility] Internal Medicine Work Phone: 12-22-2013 10:09-0400 Pulse (Heart Rate) 65 /min Mirella Mccracken [facility] Internal Medicine Work Phone: Comment on above: Pattern: Regular 12-22-2013 10:090400 Pulse Oximetry 98 % Mirella Mccracken [facility] Internal Medicine Work Phone: Comment on above: Room air 12-22-2013 10:09-0400 Respiratory Rate 20 /min Mirella Mccracken [facility] Internal Medicine Work Phone: Comment on above: Pattern: Unlabored 12-22-2013 10:09-0400 Weight 71.39 kg Mirella Mccracken [facility] Internal Medicine Work Phone: 12-01-2013 09:54-0400 BMI (Body Mass Index) 32.32 kg/m2 Mirella Mccracken [facility] Internal Medicine Work Phone: 12-01-2013 09:54-0400 Body Temperature 98.4 [degF] Mirella Mccracken [facility] Internal Medicine Work Phone: Comment on above: Method: Temporal 12-01-2013 09:54-0400 Body weight 72.58 kg Mirella Mccracken [facility] Internal Medicine Work Phone: 12-01-2013 09:54-0400 BP Diastolic 62 mm[Hg] Mirlela Mccracken [facility] Internal Medicine Work Phone: Comment on above: Patient Position: Sitting; Cuff Location : Left Arm; Cuff Size: Standard 12-01-2013 09:54-0400 BP Systolic 124 mm[Hg] Mirella Mccracken [facility] Internal Medicine Work Phone: Comment on above: Patient Position: Sitting; Cuff Location : Left Arm; Cuff Size: Standard 12-01-2013 09:54-0400 BSA (Body Surface Area) 1.68 m2 Mirella Mccracken [facility] Internal Medicine Work Phone: 12-01-2013 09:54-0400 Height 149.86 cm Mirella Mccracken [facility] Internal Medicine Work Phone: 12-01-2013 09:54-0400 Pulse (Heart Rate) 69 /min Mirella Mccracken [facility] Internal Medicine Work Phone: Comment on above: Pattern: Regular 12-01-2013 09:54-0400 Pulse Oximetry 97 % Mirella Mccracken [facility] Internal Medicine Work Phone: Comment on above: Room air 12-01-2013 09:54-0400 Respiratory Rate 16 /min Mirella Mccracken [facility] Internal Medicine Work Phone: Comment on above: Pattern: Unlabored 12-01-2013 09:54-0400 Weight 72.58 kg Mirella Mccracken [facility] Internal Medicine Work Phone: 09-23-2013 11:57-0500 BMI (Body Mass Index) 33.01 kg/m2 Mirella Solano [facility] Work Phone: 09-23-2013 11:57-0500 Body weight 74.14 kg Mirella Mccracken [facility] Internal Medicine Work Phone: 09-23-2013 11:57-0500 BP Diastolic 80 mm[Hg] Mirella Mccracken [facility] Internal Medicine Work Phone: Comment on above: Patient Position: Sitting; Cuff Location : Left Arm; Cuff Size: Large 09-23-2013 11:57-0500 BP Systolic 122 mm[Hg] Mirella Mccracken [facility] Internal Medicine Work Phone: Comment on above: Patient Position: Sitting; Cuff Location : Left Arm; Cuff Size: Large 09-23-2013 11:57-0500 BSA (Body Surface Area) 1.69 m2 Mirella Mccracken [facility] Internal Medicine Work Phone: 09-23-2013 11:57-0500 Height 149.86 cm Mirella Mccracken [facility] Internal Medicine Work Phone: 09-23-2013 11:57-0500 Pulse (Heart Rate) 66 /min Mirella Mccracken [facility] Internal Medicine Work Phone: Comment on above: Pattern: Regular 09-23-2013 11:57-0500 Pulse Oximetry 98 % Mirella Mccracken [facility] Internal Medicine Work Phone: Comment on above: Room air 09-23-2013 11:57-0500 Respiratory Rate 18 /min Mirella Mccracken [facility] Internal Medicine Work Phone: Comment on above: Pattern: Unlabored 09-23-2013 11:57-0500 Weight 74.14 kg Mirella Mccracken [facility] Internal Medicine Work Phone: 08-01-2013 10:54-0500 BMI (Body Mass Index) 33.58 kg/m2 Mirella Solano [facility] Internal Medicine Work Phone: 08-01-2013 10:54-0500 Body Temperature 98.3 [degF] Mirella Mccracken [facility] Internal Medicine Work Phone: Comment on above: Method: Oral 08-01-2013 10:54-0500 Body weight 75.41 kg Mirella Mccracken [facility] Internal Medicine Work Phone: 08-01-2013 10:54-0500 BP Diastolic 60 mm[Hg] Mirella Mccracken [facility] Internal Medicine Work Phone: Comment on above: Patient Position: Sitting; Cuff Location : Left Arm; Cuff Size: Large 08-01-2013 10:54-0500 BP Systolic 102 mm[Hg] Mirella Mccracken [facility] Internal Medicine Work Phone: Comment on above: Patient Position: Sitting; Cuff Location : Left Arm; Cuff Size: Large 08-01-2013 10:54-0500 BSA (Body Surface Area) 1.7 m2 Mirella Mccracken [facility] Internal Medicine Work Phone: 08-01-2013 10:54-0500 Height 149.86 cm Mirella Mccracken [facility] Internal Medicine Work Phone: 08-01-2013 10:54-0500 Pulse (Heart Rate) 68 /min Mirella Mccracken [facility] Internal Medicine Work Phone: Comment on above: Pattern: Regular 08-01-2013 10:54-0500 Pulse Oximetry 97 % Mirella Mccracken [facility] Internal Medicine Work Phone: Comment on above: Room air 08-01-2013 10:54-0500 Respiratory Rate 20 /min Mirella Mccracken [facility] Internal Medicine Work Phone: Comment on above: Pattern: Unlabored 08-01-2013 10:54-0500 Weight 75.41 kg Mirella Mccracken [facility] Internal Medicine Work Phone: 07-04-2013 09:33-0400 BMI (Body Mass Index) 33.73 kg/m2 Mirella Mccracken [facility] Internal Medicine Work Phone: Comment on above: hearing wnlvision Dr. Jones 07-04-2013 09:33-0400 Body Temperature 98.2 [degF] Mirella Mccracken [facility] Internal Medicine Work Phone: Comment on above: Method: Oral hearing wnlvision Dr Samaria Jones 07-04-2013 09:33-0400 Body weight 75.75 kg [facility] Medicine Work Phone: Comment on above: hearing wnlvision Dr. Jones 07-04-2013 09:33-0400 BP Diastolic 62 mm[Hg] [facility] Medicine Work Phone: Comment on above: Patient Position: Sitting; Cuff Location : Left Arm; Cuff Size: Large hearing wnl[facility] Dr Samaria Jones 07-04-2013 09:33-0400 BP Systolic 120 mm[Hg] [facility] Internal Medicine Work Phone: Comment on above: Patient Position: Sitting; Cuff Location : Left Arm; Cuff Size: Large hearing wnlvision Dr Samaria Jones 07-04-2013 09:33-0400 BSA (Body Surface Area) 1.71 m2 [facility] Internal Medicine Work Phone: Comment on above: hearing wnlvision Dr. Jones 07-04-2013 09:33-0400 Height 149.86 cm [facility] Internal Medicine Work Phone: Comment on above: hearing wnlvision Dr. Jones 07-04-2013 09:33-0400 Pulse (Heart Rate) 52 /min [facility] Medicine Work Phone: Comment on above: Pattern: Regular hearing wnl[facility] Dr Samaria Jones 07-04-2013 09:33-0400 Pulse Oximetry 97 % [facility] Medicine Work Phone: Comment on above: Room air hearing wnl[facility] Dr Samaria Jones 07-04-2013 09:33-0400 Respiratory Rate 20 /min [facility] Medicine Work Phone: Comment on above: Pattern: Unlabored hearing wnl[facility] Dr Samaria Jones 07-04-2013 09:33-0400 Weight 75.75 kg [facility] Medicine Work Phone: Comment on above: hearing wnlvision Dr. Jones 06-27-2013 14:49-0400 BMI (Body Mass Index) 33.73 kg/m2 [facility] Internal Medicine Work Phone: 06-27-2013 14:49-0400 Body weight 75.75 kg Mirella Mccracken [facility] Internal Medicine Work Phone: 06-27-2013 14:49-0400 BP Diastolic 62 mm[Hg] Mirella Mccracken [facility] Internal Medicine Work Phone: Comment on above: Patient Position: Sitting; Cuff Location : Left Arm; Cuff Size: Large 06-27-2013 14:49-0400 BP Systolic 128 mm[Hg] Mirella Mccracken [facility] Internal Medicine Work Phone: Comment on above: Patient Position: Sitting; Cuff Location : Left Arm; Cuff Size: Large 06-27-2013 14:49-0400 BSA (Body Surface Area) 1.71 m2 Mirella Mccracken [facility] Internal Medicine Work Phone: 06-27-2013 14:49-0400 Height 149.86 cm Mirella Mccracken [facility] Internal Medicine Work Phone: 06-27-2013 14:49-0400 Pulse (Heart Rate) 61 /min Mirella Mccracken [facility] Internal Medicine Work Phone: Comment on above: Pattern: Regular 06-27-2013 14:49-0400 Pulse Oximetry 98 % Mirella Mccracken [facility] Internal Medicine Work Phone: Comment on above: Room air 06-27-2013 14:49-0400 Respiratory Rate 20 /min Mirella Mccracken [facility] Internal Medicine Work Phone: Comment on above: Pattern: Unlabored 06-27-2013 14:49-0400 Weight 75.75 kg Mirella Mccracken [facility] Internal Medicine Work Phone: 06-20-2013 12:56-0400 BMI (Body Mass Index) 33.53 kg/m2 Mirella Mccracken [facility] Internal Medicine Work Phone: 06-20-2013 12:56-0400 Body Temperature 97.6 [degF] Mirella Mccracken [facility] Internal Medicine Work Phone: Comment on above: Method: Oral 06-20-2013 12:56-0400 Body weight 75.3 kg Mirella Mccracken [facility] Internal Medicine Work Phone: 06-20-2013 12:56-0400 BP Diastolic 68 mm[Hg] Mirella Mccracken [facility] Internal Medicine Work Phone: Comment on above: Patient Position: Sitting; Cuff Location : Left Arm; Cuff Size: Standard 06-20-2013 12:56-0400 BP Systolic 118 mm[Hg] Mirella Mccracken [facility] Internal Medicine Work Phone: Comment on above: Patient Position: Sitting; Cuff Location : Left Arm; Cuff Size: Standard 06-20-2013 12:56-0400 BSA (Body Surface Area) 1.7 m2 Mirella Mccracken [facility] Internal Medicine Work Phone: 06-20-2013 12:56-0400 Height 149.86 cm Mirella Mccracken [facility] Internal Medicine Work Phone: 06-20-2013 12:56-0400 Pulse (Heart Rate) 68 /min Mirella Mccracken [facility] Internal Medicine Work Phone: Comment on above: Pattern: Regular 06-20-2013 12:56-0400 Respiratory Rate 20 /min Mirella Mccracken [facility] Internal Medicine Work Phone: Comment on above: Pattern: Unlabored 06-20-2013 12:56-0400 Weight 75.3 kg Mirella Mccracken [facility] Internal Medicine Work Phone: 05-20-2013 08:13-0400 BMI (Body Mass Index) 33.63 kg/m2 Mirella Mccracken [facility] Internal Medicine Work Phone: 05-20-2013 08:13-0400 Body weight 75.52 kg Mirella Mccracken [facility] Internal Medicine Work Phone: 05-20-2013 08:13-0400 BP Diastolic 62 mm[Hg] Mirella Mccracken [facility] Internal Medicine Work Phone: Comment on above: Patient Position: Sitting; Cuff Location : Left Arm; Cuff Size: Standard 05-20-2013 08:13-0400 BP Systolic 128 mm[Hg] Mirella Mccracken [facility] Internal Medicine Work Phone: Comment on above: Patient Position: Sitting; Cuff Location : Left Arm; Cuff Size: Standard 05-20-2013 08:13-0400 BSA (Body Surface Area) 1.71 m2 Mirella Mccracken [facility] Internal Medicine Work Phone: 05-20-2013 08:13-0400 Height 149.86 cm iMrella Mccracken [facility] Internal Medicine Work Phone: 05-20-2013 08:13-0400 Pulse (Heart Rate) 60 /min Mirella Mccracken [facility] Internal Medicine Work Phone: Comment on above: Pattern: Regular 05-20-2013 08:13-0400 Respiratory Rate 20 /min Mirella Mccracken [facility] Internal Medicine Work Phone: Comment on above: Pattern: Unlabored 05-20-2013 08:13-0400 Weight 75.52 kg Mirella Mccracken [facility] Internal Medicine Work Phone: 04-22-2013 15:16-0400 BMI (Body Mass Index) 33.63 kg/m2 Mirella Mccracken [facility] Internal Medicine Work Phone: 04-22-2013 15:16-0400 Body Temperature 96 [degF] Mirella Mccracken [facility] Internal Medicine Work Phone: Comment on above: Method: Oral 04-22-2013 15:16-0400 Body weight 75.52 kg Mirella Mccracken [facility] Internal Medicine Work Phone: 04-22-2013 15:16-0400 BP Diastolic 74 mm[Hg] Mirella Mccracken [facility] Internal Medicine Work Phone: Comment on above: Patient Position: Sitting; Cuff Location : Left Arm; Cuff Size: Large 04-22-2013 15:16-0400 BP Systolic 126 mm[Hg] Mirella Mccracken [facility] Internal Medicine Work Phone: Comment on above: Patient Position: Sitting; Cuff Location : Left Arm; Cuff Size: Large 04-22-2013 15:16-0400 BSA (Body Surface Area) 1.71 m2 Mirella Mccracken [facility] Internal Medicine Work Phone: 04-22-2013 15:16-0400 Height 149.86 cm Mirella Mccracken [facility] Internal Medicine Work Phone: 04-22-2013 15:16-0400 Pulse (Heart Rate) 64 /min Mirella Mccracken [facility] Internal Medicine Work Phone: Comment on above: Pattern: Regular 04-22-2013 15:16-0400 Respiratory Rate 18 /min Mirella Mccracken [facility] Internal Medicine Work Phone: Comment on above: Pattern: Unlabored 04-22-2013 15:16-0400 Weight 75.52 kg Mirella Mccracken [facility] Internal Medicine Work Phone: 04-15-2013 15:12-0400 BMI (Body Mass Index) 34.65 kg/m2 Mirella Mccracken [facility] Internal Medicine Work Phone: 04-15-2013 15:12-0400 Body Temperature 98 [degF] Mirella Mccracken [facility] Internal Medicine Work Phone: Comment on above: Method: Oral 04-15-2013 15:12-0400 Body weight 77.82 kg Mirella Mccracken [facility] Internal Medicine Work Phone: 04-15-2013 15:12-0400 BP Diastolic 70 mm[Hg] Mirella Mccracken [facility] Internal Medicine Work Phone: Comment on above: Patient Position: Sitting; Cuff Location : Left Arm; Cuff Size: Standard 04-15-2013 15:12-0400 BP Systolic 120 mm[Hg] Mirella Mccracken [facility] Internal Medicine Work Phone: Comment on above: Patient Position: Sitting; Cuff Location : Left Arm; Cuff Size: Standard 04-15-2013 15:12-0400 BSA (Body Surface Area) 1.73 m2 Mirella Mccracken [facility] Internal Medicine Work Phone: 04-15-2013 15:12-0400 Height 149.86 cm Mirella Mccracken [facility] Internal Medicine Work Phone: 04-15-2013 15:12-0400 Pulse (Heart Rate) 64 /min Mirella Mccracken [facility] Internal Medicine Work Phone: Comment on above: Pattern: Regular 04-15-2013 15:12-0400 Pulse Oximetry 98 % Mirella Mccracken [facility] Internal Medicine Work Phone: Comment on above: Room air 04-15-2013 15:12-0400 Weight 77.82 kg Mirella Mccracken [facility] Internal Medicine Work Phone: 03-31-2013 11:15-0400 BMI (Body Mass Index) 32.96 kg/m2 Mirella Mccracken [facility] Internal Medicine Work Phone: 03-31-2013 11:15-0400 Body Temperature 97.5 [degF] Mirella Mccracken [facility] Internal Medicine Work Phone: Comment on above: Method: Oral 03-31-2013 11:15-0400 Body weight 74.02 kg Mirella Mccracken [facility] Internal Medicine Work Phone: 03-31-2013 11:15-0400 BP Diastolic 60 mm[Hg] Mirella Mccracken [facility] Internal Medicine Work Phone: Comment on above: Patient Position: Sitting; Cuff Location : Left Arm; Cuff Size: Large 03-31-2013 11:15-0400 BP Systolic 118 mm[Hg] Mirella Mccracken [facility] Internal Medicine Work Phone: Comment on above: Patient Position: Sitting; Cuff Location : Left Arm; Cuff Size: Large 03-31-2013 11:15-0400 BSA (Body Surface Area) 1.69 m2 Mirella Mccracken [facility] Internal Medicine Work Phone: 03-31-2013 11:15-0400 Height 149.86 cm Mirella Mccracken [facility] Internal Medicine Work Phone: 03-31-2013 11:15-0400 Pulse (Heart Rate) 60 /min Mirella Mccracken [facility] Internal Medicine Work Phone: Comment on above: Pattern: Regular 03-31-2013 11:15-0400 Respiratory Rate 20 /min Mirella Mccracken [facility] Internal Medicine Work Phone: Comment on above: Pattern: Unlabored 03-31-2013 11:15-0400 Weight 74.02 kg Mirella Mccracken [facility] Internal Medicine Work Phone: 02-28-2013 09:53-0400 BMI (Body Mass Index) 32.57 kg/m2 Mriella Solano [facility] Internal Medicine Work Phone: 02-28-2013 09:53-0400 Body Temperature 98.3 [degF] Mirella Mccracken [facility] Internal Medicine Work Phone: Comment on above: Method: Oral 02-28-2013 09:53-0400 Body weight 73.14 kg Mirella Mccracken [facility] Internal Medicine Work Phone: 02-28-2013 09:53-0400 BP Diastolic 62 mm[Hg] Mirella Mccracken [facility] Internal Medicine Work Phone: Comment on above: Patient Position: Sitting; Cuff Location : Left Arm; Cuff Size: Large 02-28-2013 09:53-0400 BP Systolic 120 mm[Hg] Mirella Mccracken [facility] Internal Medicine Work Phone: Comment on above: Patient Position: Sitting; Cuff Location : Left Arm; Cuff Size: Large 02-28-2013 09:53-0400 BSA (Body Surface Area) 1.68 m2 Mirella Mccracken [facility] Internal Medicine Work Phone: 02-28-2013 09:53-0400 Height 149.86 cm Mirella Mccracken [facility] Internal Medicine Work Phone: 02-28-2013 09:53-0400 Pulse (Heart Rate) 60 /min Mirella Mccracken [facility] Internal Medicine Work Phone: Comment on above: Pattern: Regular 02-28-2013 09:53-0400 Respiratory Rate 18 /min Mirella Mccracken [facility] Internal Medicine Work Phone: Comment on above: Pattern: Unlabored 02-28-2013 09:53-0400 Weight 73.14 kg Mirella Mccracken [facility] Internal Medicine Work Phone: 11-15-2012 14:01-0500 BMI (Body Mass Index) 32.57 kg/m2 Mirella Solano [facility] Internal Medicine Work Phone: 11-15-2012 14:01-0500 Body Temperature 97.9 [degF] Mirella Mccracken [facility] Internal Medicine Work Phone: Comment on above: Method: Oral 11-15-2012 14:01-0500 Body weight 73.14 kg Mirella Mccracken [facility] Internal Medicine Work Phone: 11-15-2012 14:01-0500 BP Diastolic 78 mm[Hg] Mirella Mccracken [facility] Internal Medicine Work Phone: Comment on above: Patient Position: Sitting; Cuff Location : Left Arm; Cuff Size: Large 11-15-2012 14:01-0500 BP Systolic 122 mm[Hg] Mirella Mccracken [facility] Internal Medicine Work Phone: Comment on above: Patient Position: Sitting; Cuff Location : Left Arm; Cuff Size: Large 11-15-2012 14:0500 BSA (Body Surface Area) 1.68 m2 Mirella Mccracken [facility] Internal Medicine Work Phone: 11-15-2012 14:01-0500 Height 149.86 cm Mirella Mccracken [facility] Internal Medicine Work Phone: 11-15-2012 14:01-0500 Pulse (Heart Rate) 72 /min Mirella Mccracken [facility] Internal Medicine Work Phone: Comment on above: Pattern: Regular 11-15-2012 14:01-0500 Respiratory Rate 20 /min Mirella Mccracken [facility] Internal Medicine Work Phone: Comment on above: Pattern: Unlabored 11-15-2012 14:01-0500 Weight 73.14 kg Mirella Mccracken [facility] Internal Medicine Work Phone: 10-25-2012 11:26-0500 BMI (Body Mass Index) 32.74 kg/m2 Mirella Mccracken [facility] Internal Medicine Work Phone: 10-25-2012 11:26-0500 Body Temperature 98.3 [degF] Mirella Mccracken [facility] Internal Medicine Work Phone: Comment on above: Method: Oral 10-25-2012 11:26-0500 Body weight 73.54 kg Mirella Mccracken [facility] Internal Medicine Work Phone: 10-25-2012 11:26-0500 BP Diastolic 62 mm[Hg] Mirella Mccracken [facility] Internal Medicine Work Phone: Comment on above: Patient Position: Sitting; Cuff Location : Right Arm; Cuff Size: Large 10-25-2012 11:26-0500 BP Systolic 144 mm[Hg] Mirella Mccracken [facility] Internal Medicine Work Phone: Comment on above: Patient Position: Sitting; Cuff Location : Right Arm; Cuff Size: Large 10-25-2012 11:26-0500 BSA (Body Surface Area) 1.69 m2 Mirella Mccracken [facility] Internal Medicine Work Phone: 10-25-2012 11:26-0500 Height 149.86 cm Mirella Mccracken [facility] Internal Medicine Work Phone: 10-25-2012 11:26-0500 Pulse (Heart Rate) 72 /min Mirella Mccracken [facility] Internal Medicine Work Phone: Comment on above: Pattern: Regular 10-25-2012 11:26-0500 Respiratory Rate 20 /min Mirella Mccracken [facility] Internal Medicine Work Phone: Comment on above: Pattern: Unlabored 10-25-2012 11:26-0500 Weight 73.54 kg Mirella Mccracken [facility] Internal Medicine Work Phone: 10-21-2012 09:46-0500 BMI (Body Mass Index) 32.74 kg/m2 Mirella Mccracken [facility] Internal Medicine Work Phone: 10-21-2012 09:46-0500 Body Temperature 97.6 [degF] Mirella Mccracken [facility] Internal Medicine Work Phone: Comment on above: Method: Oral 10-21-2012 09:46-0500 Body weight 73.54 kg Mirella Mccracken [facility] Internal Medicine Work Phone: 10-21-2012 09:46-0500 BP Diastolic 62 mm[Hg] Mirella Mccracken [facility] Internal Medicine Work Phone: Comment on above: Patient Position: Sitting; Cuff Location : Left Arm; Cuff Size: Large 10-21-2012 09:46-0500 BP Systolic 120 mm[Hg] Mirella Mccracken [facility] Internal Medicine Work Phone: Comment on above: Patient Position: Sitting; Cuff Location : Left Arm; Cuff Size: Large 10-21-2012 09:46-0500 BSA (Body Surface Area) 1.69 m2 Mirella Mccracken [facility] Internal Medicine Work Phone: 10-21-2012 09:46-0500 Height 149.86 cm Mirella Mccracken [facility] Internal Medicine Work Phone: 10-21-2012 09:46-0500 Pulse (Heart Rate) 64 /min Mirella Mccracken [facility] Internal Medicine Work Phone: Comment on above: Pattern: Regular 10-21-2012 09:46-0500 Respiratory Rate 20 /min Mirella Mccracken [facility] Internal Medicine Work Phone: Comment on above: Pattern: Unlabored 10-21-2012 09:46-0500 Weight 73.54 kg Mirella Mccracken [facility] Internal Medicine Work Phone: 09-30-2012 09:48-0500 BMI (Body Mass Index) 32.74 kg/m2 Mirella Mccracken [facility] Internal Medicine Work Phone: 09-30-2012 09:48-0500 Body Temperature 98.2 [degF] Mirella Mccracken [facility] Internal Medicine Work Phone: Comment on above: Method: Oral 09-30-2012 09:48-0500 Body weight 73.54 kg Mirella Mccracken [facility] Internal Medicine Work Phone: 09-30-2012 09:48-0500 BP Diastolic 76 mm[Hg] Mirella Mccracken [facility] Internal Medicine Work Phone: Comment on above: Patient Position: Sitting; Cuff Location : Left Arm; Cuff Size: Standard 09-30-2012 09:48-0500 BP Systolic 122 mm[Hg] Mirella Mccracken [facility] Internal Medicine Work Phone: Comment on above: Patient Position: Sitting; Cuff Location : Left Arm; Cuff Size: Standard 09-30-2012 09:48-0500 BSA (Body Surface Area) 1.69 m2 Mirella Mccracken [facility] Internal Medicine Work Phone: 09-30-2012 09:48-0500 Height 149.86 cm Mirella Mccracken [facility] Internal Medicine Work Phone: 09-30-2012 09:48-0500 Pulse (Heart Rate) 58 /min Mirella Mccracken [facility] Internal Medicine Work Phone: Comment on above: Pattern: Regular 09-30-2012 09:48-0500 Pulse Oximetry 98 % Mirella Mccracken [facility] Internal Medicine Work Phone: Comment on above: Room air 09-30-2012 09:48-0500 Respiratory Rate 16 /min Mirella Mccracken [facility] Internal Medicine Work Phone: Comment on above: Pattern: Unlabored 09-30-2012 09:48-0500 Weight 73.54 kg Mirella Mccracken [facility] Internal Medicine Work Phone: 09-16-2012 09:47-0500 BMI (Body Mass Index) 32.74 kg/m2 Mirella Mccracken [facility] Internal Medicine Work Phone: 09-16-2012 09:47-0500 Body Temperature 97 [degF] Mirella Mccracken [facility] Internal Medicine Work Phone: Comment on above: Method: Oral 09-16-2012 09:47-0500 Body weight 73.54 kg Mirella Mccracken [facility] Internal Medicine Work Phone: 09-16-2012 09:47-0500 BP Diastolic 76 mm[Hg] Mirella Mccracken [facility] Internal Medicine Work Phone: Comment on above: Patient Position: Sitting; Cuff Location : Left Arm; Cuff Size: Large 09-16-2012 09:47-0500 BP Systolic 128 mm[Hg] Mirella Mccracken [facility] Internal Medicine Work Phone: Comment on above: Patient Position: Sitting; Cuff Location : Left Arm; Cuff Size: Large 09-16-2012 09:47-0500 BSA (Body Surface Area) 1.69 m2 Mirella Mccracken [facility] Internal Medicine Work Phone: 09-16-2012 09:47-0500 Height 149.86 cm Mirella Mccracken [facility] Internal Medicine Work Phone: 09-16-2012 09:47-0500 Pulse (Heart Rate) 72 /min Mirella Mccracken [facility] Internal Medicine Work Phone: Comment on above: Pattern: Regular 09-16-2012 09:47-0500 Respiratory Rate 18 /min Mirella Mccracken [facility] Internal Medicine Work Phone: Comment on above: Pattern: Unlabored 09-16-2012 09:47-0500 Weight 73.54 kg Mirella Mccracken [facility] Internal Medicine Work Phone: 05-27-2012 09:32-0400 Body Temperature 96.9 [degF] Hung Davison [facility] Work Phone: 03-11-2012 13:42-0400 BMI (Body Mass Index) 28.88 kg/m2 Mirella Mccracken [facility] Internal Medicine Work Phone: 03-11-2012 13:42-0400 Body Temperature 97.8 [degF] Mirella Mccracken [facility] Internal Medicine Work Phone: 03-11-2012 13:42-0400 Body weight 64.86 kg Mirella Mccracken [facility] Internal Medicine Work Phone: 03-11-2012 13:42-0400 BP Diastolic 70 mm[Hg] Mirella Mccracken [facility] Internal Medicine Work Phone: Comment on above: Patient Position: Sitting; Cuff Location : Left Arm; Cuff Size: Large 03-11-2012 13:42-0400 BP Systolic 124 mm[Hg] Mirella Mccracken [facility] Internal Medicine Work Phone: Comment on above: Patient Position: Sitting; Cuff Location : Left Arm; Cuff Size: Large 03-11-2012 13:42-0400 BSA (Body Surface Area) 1.6 m2 Mirella Mccracken [facility] Internal Medicine Work Phone: 03-11-2012 13:42-0400 Height 149.86 cm Mirella Mccracken [facility] Internal Medicine Work Phone: 03-11-2012 13:42-0400 Pulse (Heart Rate) 56 /min Mirella Mccracken [facility] Internal Medicine Work Phone: Comment on above: Pattern: Regular 03-11-2012 13:42-0400 Respiratory Rate 18 /min Mirella Mccracken [facility] Internal Medicine Work Phone: Comment on above: Pattern: Unlabored 03-11-2012 13:42-0400 Weight 64.86 kg Mirella Mccracken [facility] Internal Medicine Work Phone: 03-04-2012 12:12-0400 BMI (Body Mass Index) 28.96 kg/m2 Mirella Mccracken [facility] Internal Medicine Work Phone: 03-04-2012 12:12-0400 Body weight 65.03 kg Mirella Mccracken [facility] Internal Medicine Work Phone: 03-04-2012 12:12-0400 BP Diastolic 62 mm[Hg] Mirella Mccracken [facility] Internal Medicine Work Phone: Comment on above: Patient Position: Sitting; Cuff Location : Left Arm; Cuff Size: Large 03-04-2012 12:12-0400 BP Systolic 122 mm[Hg] Mirella Mccracken [facility] Internal Medicine Work Phone: Comment on above: Patient Position: Sitting; Cuff Location : Left Arm; Cuff Size: Large 03-04-2012 12:12-0400 BSA (Body Surface Area) 1.6 m2 Mirella Mccracken [facility] Internal Medicine Work Phone: 03-04-2012 12:12-0400 Height 149.86 cm Mirella Mccracken [facility] Internal Medicine Work Phone: 03-04-2012 12:12-0400 Pulse (Heart Rate) 60 /min Mirella Mccracken [facility] Internal Medicine Work Phone: Comment on above: Pattern: Regular 03-04-2012 12:12-0400 Respiratory Rate 20 /min Mirella Mccracken [facility] Internal Medicine Work Phone: Comment on above: Pattern: Unlabored 03-04-2012 12:12-0400 Weight 65.03 kg Mirella Mccracken [facility] Internal Medicine Work Phone: 02-25-2012 13:29-0400 BMI (Body Mass Index) 28.96 kg/m2 Mirella Mccracken [facility] Internal Medicine Work Phone: 02-25-2012 13:29-0400 Body weight 65.03 kg Mirella Mccracken [facility] Internal Medicine Work Phone: 02-25-2012 13:29-0400 BP Diastolic 76 mm[Hg] Mirella Mccracken [facility] Internal Medicine Work Phone: Comment on above: Patient Position: Sitting; Cuff Location : Left Arm; Cuff Size: Standard 02-25-2012 13:290400 BP Systolic 120 mm[Hg] Mirella Mccracken [facility] Internal Medicine Work Phone: Comment on above: Patient Position: Sitting; Cuff Location : Left Arm; Cuff Size: Standard 02-25-2012 13:29-0400 BSA (Body Surface Area) 1.6 m2 Mirella Mccracken [facility] Internal Medicine Work Phone: 02-25-2012 13:29-0400 Height 149.86 cm Mirella Mccracken [facility] Internal Medicine Work Phone: 02-25-2012 13:29-0400 Pulse (Heart Rate) 68 /min Mirella Mccracken [facility] Internal Medicine Work Phone: Comment on above: Pattern: Regular 02-25-2012 13:29-0400 Respiratory Rate 20 /min Mirella Mccracken [facility] Internal Medicine Work Phone: Comment on above: Pattern: Unlabored 02-25-2012 13:29-0400 Weight 65.03 kg Mirella Mccracken [facility] Internal Medicine Work Phone: 01-30-2012 08:19-0400 BMI (Body Mass Index) 28.96 kg/m2 [facility] Work Phone: 01-30-2012 08:19-0400 Body weight 65.03 kg Mirella Mccracken [facility] Internal Medicine Work Phone: 01-30-2012 08:19-0400 BP Diastolic 70 mm[Hg] Mirella Mccracken [facility] Internal Medicine Work Phone: Comment on above: Patient Position: Sitting; Cuff Location : Left Arm; Cuff Size: Large 01-30-2012 08:19-0400 BP Systolic 120 mm[Hg] Mirella Mccracken [facility] Internal Medicine Work Phone: Comment on above: Patient Position: Sitting; Cuff Location : Left Arm; Cuff Size: Large 01-30-2012 08:19-0400 BSA (Body Surface Area) 1.6 m2 Mirella Mccracken [facility] Internal Medicine Work Phone: 01-30-2012 08:19-0400 Height 149.86 cm Mirella Mccracken [facility] Internal Medicine Work Phone: 01-30-2012 08:19-0400 Pulse (Heart Rate) 60 /min Mirella Mccracken [facility] Internal Medicine Work Phone: Comment on above: Pattern: Regular 01-30-2012 08:19-0400 Respiratory Rate 18 /min Mirella Mccracken [facility] Internal Medicine Work Phone: Comment on above: Pattern: Unlabored 01-30-2012 08:19-0400 Weight 65.03 kg Mirella Mccracken [facility] Internal Medicine Work Phone: 01-15-2012 12:06-0400 BMI (Body Mass Index) 28.96 kg/m2 Mirella Mccracken [facility] Internal Medicine Work Phone: Comment on above: vison with correction ou=20/50 os=20/50 od=20/50hearing [facility] 01-15-2012 12:06-0400 Body Temperature 97 [degF] Mirella Mccracken [facility] Internal Medicine Work Phone: Comment on above: Method: Oral vison with correctio n ou=20/50 os=20/50 od=20/50hearing [facility] 01-15-2012 12:06-0400 Body weight 65.03 kg Mirella Mccracken [facility] Internal Medicine Work Phone: Comment on above: vison with correction ou=20/50 os=20/50 od=20/50hearing [facility] 01-15-2012 12:06-0400 BP Diastolic 60 mm[Hg] [facility] Internal Medicine Work Phone: Comment on above: Patient Position: Sitting; Cuff Location : Left Arm; Cuff Size: Large vison with correctio n ou=20/50 os=20/50 od=20/50hearing [facility] 01-15-2012 12:06-0400 BP Systolic 118 mm[Hg] [facility] Internal Medicine Work Phone: Comment on above: Patient Position: Sitting; Cuff Location : Left Arm; Cuff Size: Large vison with correctio n ou=20/50 os=20/50 od=20/50hearing [facility] 01-15-2012 12:06-0400 BSA (Body Surface Area) 1.6 m2 [facility] Internal Medicine Work Phone: Comment on above: vison with correction ou=20/50 os=20/50 od=20/50[facility] 01-15-2012 12:06-0400 Height 149.86 cm [facility] Internal Medicine Work Phone: Comment on above: vison with correction ou=20/50 os=20/50 od=20/50hearing [facility] 01-15-2012 12:06-0400 Pulse (Heart Rate) 68 /min [facility] Internal Medicine Work Phone: Comment on above: Pattern: Regular vison with correctio n ou=20/50 os=20/50 od=20/50hearing [facility] 01-15-2012 12:06-0400 Respiratory Rate 20 /min [facility] Internal Medicine Work Phone: Comment on above: Pattern: Unlabored vison with correctio n ou=20/50 os=20/50 od=20/50hearing [facility] 01-15-2012 12:06-0400 Weight 65.03 kg [facility] Internal Medicine Work Phone: Comment on above: vison with correction ou=20/50 os=20/50 od=20/50hearing [facility] 12-31-2011 15:05-0400 BMI (Body Mass Index) 28.88 kg/m2 Mirella Mccracken [facility] Internal Medicine Work Phone: 12-31-2011 15:05-0400 Body weight 64.86 kg Mirella Mccracken [facility] Internal Medicine Work Phone: 12-31-2011 15:05-0400 BP Diastolic 78 mm[Hg] Mirella Mccracken [facility] Internal Medicine Work Phone: Comment on above: Patient Position: Sitting; Cuff Location : Left Arm; Cuff Size: Large 12-31-2011 15:05-0400 BP Systolic 122 mm[Hg] Mirella Mccracken [facility] Internal Medicine Work Phone: Comment on above: Patient Position: Sitting; Cuff Location : Left Arm; Cuff Size: Large 12-31-2011 15:05-0400 BSA (Body Surface Area) 1.6 m2 Mirella Mccracken [facility] Internal Medicine Work Phone: 12-31-2011 15:05-0400 Height 149.86 [facility] Work [facility]: 12-31-2011 15:05-0400 Pulse (Heart Rate) 60 /min Mirella Mccracken [facility] Internal Medicine Work Phone: Comment on above: Pattern: Regular 12-31-2011 15:05-0400 Respiratory Rate 18 /min Mirella Mccracken [facility] Internal Medicine Work Phone: Comment on above: Pattern: Unlabored 12-31-2011 15:05-0400 Weight 64.86 kg Mirella Mccracken [facility] Internal Medicine Work Phone: 12-26-2011 14:17-0400 BP Diastolic 62 mm[Hg] [facility] Work [facility]: Comment on above: Patient Position: Sitting; Cuff Location : Left Arm; Cuff Size: Standard 12-26-2011 14:17-0400 BP Systolic 122 mm[Hg] [facility] Work [facility]: Comment on above: Patient Position: Sitting; Cuff Location : Left Arm; Cuff Size: Standard 12-26-2011 14:17-0400 Pulse (Heart Rate) 58 /min Mirella Mccracken [facility] Internal Medicine Work Phone: Comment on above: Pattern: Regular 12-26-2011 14:17-0400 Pulse Oximetry 98 % Mirella Mccracken [facility] Internal Medicine Work Phone: Comment on above: Room air 12-26-2011 13:59-0400 Pulse (Heart Rate) 48 /min Mirella Mccracken [facility] Internal Medicine Work Phone: Comment on above: Pattern: Regular 12-26-2011 13:59-0400 Pulse Oximetry 95 % Mirella Mccracken [facility] Internal Medicine Work Phone: Comment on above: Room air 12-26-2011 13:13-0400 BMI (Body Mass Index) 29.49 kg/m2 Mirella Mccracken [facility] Internal Medicine Work Phone: 12-26-2011 13:13-0400 Body Temperature 97.8 [degF] Mirella Mccracken [facility] Internal Medicine Work Phone: Comment on above: Method: Oral 12-26-2011 13:13-0400 Body weight 66.23 kg Mirella Mccracken [facility] Internal Medicine Work Phone: 12-26-2011 13:13-0400 BP Diastolic 68 mm[Hg] Mirella Mccracken [facility] Internal Medicine Work Phone: Comment on above: Patient Position: Sitting; Cuff Location : Left Arm; Cuff Size: Standard 12-26-2011 13:13-0400 BP Systolic 114 mm[Hg] Mirella Mccracken [facility] Internal Medicine Work Phone: Comment on above: Patient Position: Sitting; Cuff Location : Left Arm; Cuff Size: Standard 12-26-2011 13:13-0400 BSA (Body Surface Area) 1.61 m2 Mirella Mccracken [facility] Internal Medicine Work Phone: 12-26-2011 13:13-0400 Height 149.86 cm Mirella Mccracken [facility] Internal Medicine Work Phone: 12-26-2011 13:13-0400 Pulse (Heart Rate) 54 /min Mirella Mccracken [facility] Internal Medicine Work Phone: Comment on above: Pattern: Regular 12-26-2011 13:13-0400 Pulse Oximetry 98 % Mirella Mccracken [facility] Internal Medicine Work Phone: Comment on above: Room air 12-26-2011 13:13-0400 Respiratory Rate 20 /min Mirella Mccracken [facility] Internal Medicine Work Phone: Comment on above: Pattern: Unlabored 12-26-2011 13:13-0400 Weight 66.23 kg Mirella Mccracken [facility] Internal Medicine Work Phone: 12-24-2011 14:07-0400 BMI (Body Mass Index) 29.5 kg/m2 Mirella Mccracken [facility] Internal Medicine Work Phone: 12-24-2011 14:07-0400 Body weight 66.25 kg Mirella Mccracken [facility] Internal Medicine Work Phone: 12-24-2011 14:07-0400 BP Diastolic 60 mm[Hg] Mirella Mccracken [facility] Internal Medicine Work Phone: Comment on above: Patient Position: Sitting; Cuff Location : Left Arm; Cuff Size: Large 12-24-2011 14:07-0400 BP Systolic 124 mm[Hg] Mirella Mccracken [facility] Internal Medicine Work Phone: Comment on above: Patient Position: Sitting; Cuff Location : Left Arm; Cuff Size: Large 12-24-2011 14:07-0400 BSA (Body Surface Area) 1.61 m2 Mirella Mccracken [facility] Internal Medicine Work Phone: 12-24-2011 14:07-0400 Height 149.86 cm Mirella Mccracken [facility] Internal Medicine Work Phone: 12-24-2011 14:07-0400 Pulse (Heart Rate) 60 /min Mirella Mccracken [facility] Internal Medicine Work Phone: Comment on above: Pattern: Regular 12-24-2011 14:07-0400 Respiratory Rate 18 /min Mirella Mccracken [facility] Internal Medicine Work Phone: Comment on above: Pattern: Unlabored 12-24-2011 14:07-0400 Weight 66.25 kg Mirella Mccracken [facility] Internal Medicine Work Phone: 12-15-2011 09:30-0400 BMI (Body Mass Index) 29.31 kg/m2 Mirella Mccracken [facility] Internal Medicine Work Phone: 12-15-2011 09:30-0400 Body Temperature 97.9 [degF] Mirella Mccracken [facility] Internal Medicine Work Phone: Comment on above: Method: Oral 12-15-2011 09:30-0400 Body weight 65.83 kg Mirella Mccracken [facility] Internal Medicine Work Phone: 12-15-2011 09:30-0400 BP Diastolic 60 mm[Hg] Mirella Mccracken [facility] Internal Medicine Work Phone: Comment on above: Patient Position: Sitting; Cuff Location : Left Arm; Cuff Size: Large 12-15-2011 09:30-0400 BP Systolic 104 mm[Hg] Mirella Mccracken [facility] Internal Medicine Work Phone: Comment on above: Patient Position: Sitting; Cuff Location : Left Arm; Cuff Size: Large 12-15-2011 09:30-0400 BSA (Body Surface Area) 1.61 m2 Mirella Mccracken [facility] Internal Medicine Work Phone: 12-15-2011 09:30-0400 Height 149.86 cm Mirella Mccracken [facility] Internal Medicine Work Phone: 12-15-2011 09:30-0400 Pulse (Heart Rate) 60 /min Mirella Mccracken [facility] Internal Medicine Work Phone: Comment on above: Pattern: Regular 12-15-2011 09:30-0400 Respiratory Rate 18 /min Mirella Mccracken [facility] Internal Medicine Work Phone: Comment on above: Pattern: Unlabored 12-15-2011 09:30-0400 Weight 65.83 kg Mirella Mccracken [facility] Internal Medicine Work Phone: 11-26-2011 11:36-0400 BMI (Body Mass Index) 29.69 kg/m2 Mirella Solano [facility] Internal Medicine Work Phone: 11-26-2011 11:36-0400 Body Temperature 95.6 [degF] Mirella Mccracken [facility] Internal Medicine Work Phone: Comment on above: Method: Oral 11-26-2011 11:36-0400 Body weight 66.68 kg Mirella Mccracken [facility] Internal Medicine Work Phone: 11-26-2011 11:36-0400 BP Diastolic 62 mm[Hg] Mirella Mccracken [facility] Internal Medicine Work Phone: Comment on above: Patient Position: Sitting; Cuff Location : Left Arm; Cuff Size: Large 11-26-2011 11:36-0400 BP Systolic 118 mm[Hg] Mirella Mccracken [facility] Internal Medicine Work Phone: Comment on above: Patient Position: Sitting; Cuff Location : Left Arm; Cuff Size: Large 11-26-2011 11:36-0400 BSA (Body Surface Area) 1.62 m2 Mirella Mccracken [facility] Internal Medicine Work Phone: 11-26-2011 11:36-0400 Height 149.86 cm Mirella Mccracken [facility] Internal Medicine Work Phone: 11-26-2011 11:36-0400 Pulse (Heart Rate) 64 /min Mirella Mccracken [facility] Internal Medicine Work Phone: Comment on above: Pattern: Regular 11-26-2011 11:36-0400 Respiratory Rate 20 /min Mirella Mccracken [facility] Internal Medicine Work Phone: Comment on above: Pattern: Unlabored 11-26-2011 11:36-0400 Weight 66.68 kg Mirella Mccracken [facility] Internal Medicine Work Phone: 11-12-2011 12:55-0500 BMI (Body Mass Index) 30.51 kg/m2 Mirella Solnao [facility] Internal Medicine Work Phone: 11-12-2011 12:55-0500 Body weight 68.52 kg Mirella Mccracken [facility] Internal Medicine Work Phone: 11-12-2011 12:55-0500 BP Diastolic 60 mm[Hg] Mirella Mccracken [facility] Internal Medicine Work Phone: Comment on above: Patient Position: Sitting; Cuff Location : Left Arm; Cuff Size: Large 11-12-2011 12:55-0500 BP Systolic 112 mm[Hg] Mirella Mccracken [facility] Internal Medicine Work Phone: Comment on above: Patient Position: Sitting; Cuff Location : Left Arm; Cuff Size: Large 11-12-2011 12:55-0500 BSA (Body Surface Area) 1.64 m2 Mirella Mccracken [facility] Internal Medicine Work Phone: 11-12-2011 12:55-0500 Height 149.86 cm Mirella Mccracken [facility] Internal Medicine Work Phone: 11-12-2011 12:55-0500 Pulse (Heart Rate) 68 /min Mirella Mccracken [facility] Internal Medicine Work Phone: Comment on above: Pattern: Regular 11-12-2011 12:55-0500 Respiratory Rate 20 /min Mirella Mccracken [facility] Internal Medicine Work Phone: Comment on above: Pattern: Unlabored 11-12-2011 12:55-0500 Weight 68.52 kg Mirella Mccracken [facility] Internal Medicine Work Phone: 11-06-2011 12:18-0500 BMI (Body Mass Index) 30.09 kg/m2 Mirella Mccracken [facility] Internal Medicine Work Phone: 11-06-2011 12:18-0500 Body Temperature 98.1 [degF] Mirella Mccracken [facility] Internal Medicine Work Phone: Comment on above: Method: Oral 11-06-2011 12:18-0500 Body weight 67.59 kg Mirella Mccracken [facility] Internal Medicine Work Phone: 11-06-2011 12:18-0500 BP Diastolic 70 mm[Hg] Mirella Mccracken [facility] Internal Medicine Work Phone: Comment on above: Patient Position: Sitting; Cuff Location : Left Arm; Cuff Size: Large 11-06-2011 12:18-0500 BP Systolic 134 mm[Hg] Mirella Mccracken [facility] Internal Medicine Work Phone: Comment on above: Patient Position: Sitting; Cuff Location : Left Arm; Cuff Size: Large 11-06-2011 12:18-0500 BSA (Body Surface Area) 1.63 m2 Mirella Mccracken [facility] Internal Medicine Work Phone: 11-06-2011 12:18-0500 Height 149.86 cm Mirella Mccracken [facility] Internal Medicine Work Phone: 11-06-2011 12:18-0500 Pulse (Heart Rate) 68 /min Mirella Mccracken [facility] Internal Medicine Work Phone: Comment on above: Pattern: Regular 11-06-2011 12:18-0500 Respiratory Rate 20 /min Mirella Mccracken [facility] Internal Medicine Work Phone: Comment on above: Pattern: Unlabored 11-06-2011 12:18-0500 Weight 67.59 kg Mirella Mccracken [facility] Internal Medicine Work Phone: 10-21-2011 13:27-0500 Body Temperature 97.9 [degF] Mirella Mccracken [facility] Internal Medicine Work Phone: 10-21-2011 13:27-0500 Body weight 67.54 kg Mirella Mccracken [facility] Internal Medicine Work Phone: 10-21-2011 13:27-0500 BP Diastolic 92 mm[Hg] Mirella Mccracken [facility] Internal Medicine Work Phone: Comment on above: Patient Position: Sitting; Cuff Location : Left Arm; Cuff Size: Standard 10-21-2011 13:27-0500 BP Systolic 152 mm[Hg] Mirella Mccracken [facility] Internal Medicine Work Phone: Comment on above: Patient Position: Sitting; Cuff Location : Left Arm; Cuff Size: Standard 10-21-2011 13:27-0500 Pulse (Heart Rate) 99 /min Mirella Mccracken [facility] Internal Medicine Work Phone: Comment on above: Pattern: Regular 10-21-2011 13:27-0500 Pulse Oximetry 92 % Mirella Mccracken [facility] Internal Medicine Work Phone: Comment on above: Room air 10-21-2011 13:27-0500 Respiratory Rate 17 /min Mirella Mccracken [facility] Internal Medicine Work Phone: Comment on above: Pattern: Unlabored 10-21-2011 13:27-0500 Weight 67.54 kg Mirella Mccracken [facility] Internal Medicine Work Phone: 06-05-2011 09:34-0400 BMI (Body Mass Index) 30.14 kg/m2 Mirella Mccracken [facility] Internal Medicine Work Phone: 06-05-2011 09:34-0400 Body Temperature 98.5 [degF] Mirella Mccracken [facility] Internal Medicine Work Phone: Comment on above: Method: Oral 06-05-2011 09:34-0400 Body weight 67.7 kg Mirella Mccracken [facility] Internal Medicine Work Phone: 06-05-2011 09:34-0400 BP Diastolic 78 mm[Hg] Mirella Mccracken [facility] Internal Medicine Work Phone: Comment on above: Patient Position: Sitting; Cuff Location : Left Arm; Cuff Size: Large 06-05-2011 09:34-0400 BP Systolic 142 mm[Hg] Mirella Mccracken [facility] Internal Medicine Work Phone: Comment on above: Patient Position: Sitting; Cuff Location : Left Arm; Cuff Size: Large 06-05-2011 09:34-0400 BSA (Body Surface Area) 1.63 m2 Mirella Mccracken [facility] Internal Medicine Work Phone: 06-05-2011 09:34-0400 Height 149.86 cm Mirella Mccracken [facility] Internal Medicine Work Phone: 06-05-2011 09:34-0400 Pulse (Heart Rate) 76 /min Mirella Mccracken [facility] Internal Medicine Work Phone: Comment on above: Pattern: Regular 06-05-2011 09:34-0400 Respiratory Rate 20 /min Mirella Mccracken [facility] Internal Medicine Work Phone: Comment on above: Pattern: Unlabored 06-05-2011 09:34-0400 Weight 67.7 kg Mirella Mccracken [facility] Internal Medicine Work Phone: 05-08-2011 08:10-0400 BMI (Body Mass Index) 28.19 kg/m2 Mirella Mccracken [facility] Internal Medicine Work Phone: 05-08-2011 08:10-0400 Body Temperature 98.7 [degF] Mirella Mccracken [facility] Internal Medicine Work Phone: Comment on above: Method: Oral 05-08-2011 08:10-0400 Body weight 63.31 kg Mirella Mccracken [facility] Internal Medicine Work Phone: 05-08-2011 08:10-0400 BP Diastolic 78 mm[Hg] Mirella Mccracken [facility] Internal Medicine Work Phone: Comment on above: Patient Position: Sitting; Cuff Location : Left Arm; Cuff Size: Standard 05-08-2011 08:10-0400 BP Systolic 142 mm[Hg] Mirella Mccracken [facility] Internal Medicine Work Phone: Comment on above: Patient Position: Sitting; Cuff Location : Left Arm; Cuff Size: Standard 05-08-2011 08:10-0400 BSA (Body Surface Area) 1.58 m2 Mirella Mccracken [facility] Internal Medicine Work Phone: 05-08-2011 08:10-0400 Height 149.86 cm Mirella Mccracken [facility] Internal Medicine Work Phone: 05-08-2011 08:10-0400 Pulse (Heart Rate) 84 /min Mirella Mccracken [facility] Internal Medicine Work Phone: Comment on above: Pattern: Regular 05-08-2011 08:10-0400 Respiratory Rate 17 /min Mirella Mccracken [facility] Internal Medicine Work Phone: 05-08-2011 08:10-0400 Weight 63.31 kg Mirella Mccracken [facility] Internal Medicine Work Phone: 05-07-2011 08:42-0400 BMI (Body Mass Index) 28.19 kg/m2 Mirella Mccracken [facility] Internal Medicine Work Phone: 05-07-2011 08:42-0400 Body Temperature 98 [degF] Mirella Mccracken [facility] Internal Medicine Work Phone: Comment on above: Method: Oral 05-07-2011 08:42-0400 Body weight 63.31 kg Mirella Mccracken [facility] Internal Medicine Work Phone: 05-07-2011 08:42-0400 BP Diastolic 72 mm[Hg] Mirella Mccracken [facility] Internal Medicine Work Phone: Comment on above: Patient Position: Sitting; Cuff Location : Left Arm; Cuff Size: Standard 05-07-2011 08:42-0400 BP Systolic 132 mm[Hg] Mirella Mccracken [facility] Internal Medicine Work Phone: Comment on above: Patient Position: Sitting; Cuff Location : Left Arm; Cuff Size: Standard 05-07-2011 08:42-0400 BSA (Body Surface Area) 1.58 m2 Mirella Mccracken [facility] Internal Medicine Work Phone: 05-07-2011 08:42-0400 Height 149.86 cm Mirella Mccracken [facility] Internal Medicine Work Phone: 05-07-2011 08:42-0400 Pulse (Heart Rate) 82 /min Mirella Mccracken [facility] Internal Medicine Work Phone: Comment on above: Pattern: Regular 05-07-2011 08:42-0400 Respiratory Rate 18 /min Mirella Mccracken [facility] Internal Medicine Work Phone: Comment on above: Pattern: Unlabored 05-07-2011 08:42-0400 Weight 63.31 kg Mirella Mccracken [facility] Internal Medicine Work Phone: 05-06-2011 16:25-0400 BP Diastolic 82 mm[Hg] Mirella Mccracken [facility] Internal Medicine Work Phone: Comment on above: Patient Position: Supine; Cuff Location: Right Arm; Cuff Size: Standard 05-06-2011 16:25-0400 BP Systolic 146 mm[Hg] Mirella Mccracken [facility] Internal Medicine Work Phone: Comment on above: Patient Position: Supine; Cuff Location: Right Arm; Cuff Size: Standard 05-06-2011 16:25-0400 Pulse (Heart Rate) 76 /min Mirella Mccracken [facility] Internal Medicine Work Phone: Comment on above: Pattern: Regular 11-06-2010 12:10-0500 BMI (Body Mass Index) 28.19 kg/m2 Mirella Mccracken [facility] Internal Medicine Work Phone: 11-06-2010 12:10-0500 Body Temperature 97.3 [degF] Mirella Mccracken [facility] Internal Medicine Work Phone: Comment on above: Method: Oral 11-06-2010 12:10-0500 Body weight 63.31 kg Mirella Mccracken [facility] Internal Medicine Work Phone: 11-06-2010 12:10-0500 BP Diastolic 82 mm[Hg] Mirella Mccracken [facility] Internal Medicine Work Phone: Comment on above: Patient Position: Sitting; Cuff Location : Left Arm; Cuff Size: Standard 11-06-2010 12:10-0500 BP Systolic 144 mm[Hg] Mirella Mccracken [facility] Internal Medicine Work Phone: Comment on above: Patient Position: Sitting; Cuff Location : Left Arm; Cuff Size: Standard 11-06-2010 12:10-0500 BSA (Body Surface Area) 1.58 m2 Mirella Mccracken [facility] Internal Medicine Work Phone: 11-06-2010 12:10-0500 Height 149.86 cm Mirella Mccracken [facility] Internal Medicine Work Phone: 11-06-2010 12:10-0500 Pulse (Heart Rate) 76 /min Mirella Mccracken [facility] Internal Medicine Work Phone: Comment on above: Pattern: Regular 11-06-2010 12:10-0500 Respiratory Rate 18 /min Mirella Mccracken [facility] Internal Medicine Work Phone: Comment on above: Pattern: Unlabored 11-06-2010 12:10-0500 Weight 63.31 kg Mirella Mccracken [facility] Internal Medicine Work Phone: 11-04-2010 09:00-0500 BMI (Body Mass Index) 28.19 kg/m2 Mirella Solano [facility] Internal Medicine Work Phone: 11-04-2010 09:00-0500 Body weight 63.31 kg Mirella Mccracken [facility] Internal Medicine Work Phone: 11-04-2010 09:00-0500 BP Diastolic 72 mm[Hg] Mirella Mccracken [facility] Internal Medicine Work Phone: Comment on above: Patient Position: Sitting; Cuff Location : Left Arm; Cuff Size: Standard 11-04-2010 09:00-0500 BP Systolic 122 mm[Hg] Mirella Mccracken [facility] Internal Medicine Work Phone: Comment on above: Patient Position: Sitting; Cuff Location : Left Arm; Cuff Size: Standard 11-04-2010 09:00-0500 BSA (Body Surface Area) 1.58 m2 Mirella Mccracken [facility] Internal Medicine Work Phone: 11-04-2010 09:00-0500 Height 149.86 cm Mirella Mccracken [facility] Internal Medicine Work Phone: 11-04-2010 09:00-0500 Pulse (Heart Rate) 62 /min Mirella Mccracken [facility] Internal Medicine Work Phone: Comment on above: Pattern: Regular 11-04-2010 09:00-0500 Respiratory Rate 16 /min Mirella Mccracken [facility] Internal Medicine Work Phone: Comment on above: Pattern: Unlabored 11-04-2010 09:00-0500 Weight 63.31 kg Mirella Mccracken [facility] Internal Medicine Work Phone: 10-14-2010 09:31-0500 BMI (Body Mass Index) 28.19 kg/m2 Mirella Solano [facility] Internal Medicine Work Phone: 10-14-2010 09:31-0500 Body weight 63.31 kg Mirella Mccracken [facility] Internal Medicine Work Phone: 10-14-2010 09:31-0500 BP Diastolic 70 mm[Hg] Mirella Mccracken [facility] Internal Medicine Work Phone: Comment on above: Patient Position: Sitting; Cuff Location : Left Arm; Cuff Size: Large 10-14-2010 09:31-0500 BP Systolic 132 mm[Hg] Mirella Mccracken [facility] Internal Medicine Work Phone: Comment on above: Patient Position: Sitting; Cuff Location : Left Arm; Cuff Size: Large 10-14-2010 09:31-0500 BSA (Body Surface Area) 1.58 m2 Mirella Mccracken [facility] Internal Medicine Work Phone: 10-14-2010 09:31-0500 Height 149.86 cm Mirella Mccracken [facility] Internal Medicine Work Phone: 10-14-2010 09:31-0500 Pulse (Heart Rate) 72 /min Mirella Mccracken [facility] Internal Medicine Work Phone: Comment on above: Pattern: Regular 10-14-2010 09:31-0500 Respiratory Rate 20 /min Mirella Mccracken [facility] Internal Medicine Work Phone: Comment on above: Pattern: Unlabored 10-14-2010 09:31-0500 Weight 63.31 kg Mirella Mccracken [facility] Internal Medicine Work Phone: 07-17-2010 08:52-0400 BMI (Body Mass Index) 29.73 kg/m2 Mirella Mccracken [facility] Internal Medicine Work Phone: 07-17-2010 08:52-0400 Body weight 66.76 kg Mirella Mccracken [facility] Internal Medicine Work Phone: 07-17-2010 08:52-0400 BP Diastolic 78 mm[Hg] Mirella Mccracken [facility] Internal Medicine Work Phone: Comment on above: Patient Position: Sitting; Cuff Location : Left Arm; Cuff Size: Large 07-17-2010 08:52-0400 BP Systolic 138 mm[Hg] Mirella Mccracken [facility] Internal Medicine Work Phone: Comment on above: Patient Position: Sitting; Cuff Location : Left Arm; Cuff Size: Large 07-17-2010 08:52-0400 BSA (Body Surface Area) 1.62 m2 Mirella Mccracken [facility] Internal Medicine Work Phone: 07-17-2010 08:52-0400 Height 149.86 cm Mirelal Mccracken [facility] Internal Medicine Work Phone: 07-17-2010 08:52-0400 Pulse (Heart Rate) 60 /min Mirella Mccracken [facility] Internal Medicine Work Phone: Comment on above: Pattern: Regular 07-17-2010 08:52-0400 Respiratory Rate 20 /min Mirella Mccracken [facility] Internal Medicine Work Phone: Comment on above: Pattern: Unlabored 07-17-2010 08:52-0400 Weight 66.76 kg Mirella Mccracken [facility] Internal Medicine Work Phone: 06-17-2010 10:04-0400 BMI (Body Mass Index) 29.6 kg/m2 Mirella Mccracken [facility] Internal Medicine Work Phone: 06-17-2010 10:04-0400 Body weight 66.48 kg Mirella Mccracken [facility] Internal Medicine Work Phone: 06-17-2010 10:04-0400 BP Diastolic 70 mm[Hg] Mirella Mccracken [facility] Internal Medicine Work Phone: Comment on above: Patient Position: Sitting; Cuff Location : Left Arm; Cuff Size: Large 06-17-2010 10:04-0400 BP Systolic 122 mm[Hg] Mirella Mccracken [facility] Internal Medicine Work Phone: Comment on above: Patient Position: Sitting; Cuff Location : Left Arm; Cuff Size: Large 06-17-2010 10:04-0400 BSA (Body Surface Area) 1.62 m2 Mirella Mccracken [facility] Internal Medicine Work Phone: 06-17-2010 10:04-0400 Height 149.86 cm Mirella Mccracken [facility] Internal Medicine Work Phone: 06-17-2010 10:04-0400 Pulse (Heart Rate) 68 /min Mirella Mccracken [facility] Internal Medicine Work Phone: Comment on above: Pattern: Regular 06-17-2010 10:04-0400 Respiratory Rate 20 /min Mirella Mccracken [facility] Internal Medicine Work Phone: Comment on above: Pattern: Unlabored 06-17-2010 10:04-0400 Weight 66.48 kg Mirella Mccracken [facility] Internal Medicine Work Phone: 01-25-2010 13:25-0400 Body weight 66.91 kg Mirella Mccracken [facility] Internal Medicine Work Phone: 01-25-2010 13:25-0400 BP Diastolic 76 mm[Hg] Mirella Mccracken [facility] Internal Medicine Work Phone: Comment on above: Patient Position: Sitting; Cuff Location : Left Arm; Cuff Size: Standard 01-25-2010 13:25-0400 BP Systolic 132 mm[Hg] Mirella Mccracken [facility] Internal Medicine Work Phone: Comment on above: Patient Position: Sitting; Cuff Location : Left Arm; Cuff Size: Standard 01-25-2010 13:25-0400 Pulse (Heart Rate) 68 /min Mirella Mccracken [facility] Internal Medicine Work Phone: Comment on above: Pattern: Regular 01-25-2010 13:25-0400 Respiratory Rate 18 /min Mirella Mccracken [facility] Internal Medicine Work Phone: Comment on above: Pattern: Unlabored 01-25-2010 13:25-0400 Weight 66.91 kg Mirella Mccracken [facility] Internal Medicine Work Phone: 12-13-2009 11:12-0400 BMI (Body Mass Index) 29.32 kg/m2 Mirella Mccracken [facility] Internal Medicine Work Phone: 12-13-2009 11:12-0400 Body weight 65.86 kg Mirella Mccracken [facility] Internal Medicine Work Phone: 12-13-2009 11:12-0400 BP Diastolic 78 mm[Hg] Mirella Mccracken [facility] Internal Medicine Work Phone: Comment on above: Patient Position: Sitting; Cuff Location : Left Arm; Cuff Size: Large 12-13-2009 11:12-0400 BP Systolic 118 mm[Hg] Mirella Mccracken [facility] Internal Medicine Work Phone: Comment on above: Patient Position: Sitting; Cuff Location : Left Arm; Cuff Size: Large 12-13-2009 11:12-0400 BSA (Body Surface Area) 1.61 m2 Mirella Mccracken [facility] Internal Medicine Work Phone: 12-13-2009 11:12-0400 Height 149.86 cm Mirella Mccracken [facility] Internal Medicine Work Phone: 12-13-2009 11:12-0400 Pulse (Heart Rate) 64 /min Mirella Mccracken [facility] Internal Medicine Work Phone: Comment on above: Pattern: Regular 12-13-2009 11:12-0400 Respiratory Rate 20 /min Mirella Mccracken [facility] Internal Medicine Work Phone: Comment on above: Pattern: Unlabored 12-13-2009 11:12-0400 Weight 65.86 kg Mirella Mccracken [facility] Internal Medicine Work Phone: 10-03-2009 11:50-0500 BMI (Body Mass Index) 27.37 kg/m2 Mirella Mccracken [facility] Internal Medicine Work Phone: 10-03-2009 11:50-0500 Body weight 61.46 kg Mirella Mccracken [facility] Internal Medicine Work Phone: 10-03-2009 11:50-0500 BP Diastolic 78 mm[Hg] Mirella Mccracken [facility] Internal Medicine Work Phone: Comment on above: Patient Position: Sitting; Cuff Location : Left Arm; Cuff Size: Large 10-03-2009 11:50-0500 BP Systolic 120 mm[Hg] Mirella Mccracken [facility] Internal Medicine Work Phone: Comment on above: Patient Position: Sitting; Cuff Location : Left Arm; Cuff Size: Large 10-03-2009 11:50-0500 BSA (Body Surface Area) 1.56 m2 Mirella Mccracken [facility] Internal Medicine Work Phone: 10-03-2009 11:50-0500 Height 149.86 [facility]: 10-03-2009 11:50-0500 Pulse (Heart Rate) 64 /min Mirella Mccracken [facility] Internal Medicine Work Phone: Comment on above: Pattern: Regular 10-03-2009 11:50-0500 Respiratory Rate 20 /min Mirella Mccracken [facility] Internal Medicine Work Phone: Comment on above: Pattern: Unlabored 10-03-2009 11:50-0500 Weight 61.46 kg Mirella Mccracken [facility] Internal Medicine Work Phone: 01-17-2009 07:54-0400 BMI (Body Mass Index) 27.37 kg/m2 Mirella Mccracken [facility] Internal Medicine Work Phone: 01-17-2009 07:54-0400 Body weight 61.46 kg Mirella Mccracken [facility] Internal Medicine Work Phone: 01-17-2009 07:54-0400 BP Diastolic 60 mm[Hg] Mirella Mccracken [facility] Internal Medicine Work Phone: Comment on above: Patient Position: Sitting; Cuff Location : Left Arm; Cuff Size: Large 01-17-2009 07:54-0400 BP Systolic 112 mm[Hg] Mirella Mccracken [facility] Internal Medicine Work Phone: Comment on above: Patient Position: Sitting; Cuff Location : Left Arm; Cuff Size: Large 01-17-2009 07:54-0400 BSA (Body Surface Area) 1.56 m2 Mirella Mccracken [facility] Internal Medicine Work Phone: 01-17-2009 07:54-0400 Head Circumference 0 cm Mirella Mccracken [facility] Internal Medicine Work Phone: 01-17-2009 07:54-0400 Height 149.86 cm Mirella Mccracken [facility] Internal Medicine Work Phone: 01-17-2009 07:54-0400 Pulse (Heart Rate) 64 /min Mirella Mccracken [facility] Internal Medicine Work Phone: Comment on above: Pattern: Regular 01-17-2009 07:54-0400 Respiratory Rate 20 /min Mirella Mccracken [facility] Internal Medicine Work Phone: Comment on above: Pattern: Unlabored 01-17-2009 07:54-0400 Weight 61.46 kg Mirella Mccracken [facility] Internal Medicine Work Phone: 01-12-2009 07:52-0400 BMI (Body Mass Index) 27.37 kg/m2 Mirella Mccracken [facility] Internal Medicine Work Phone: 01-12-2009 07:52-0400 Body weight 61.46 kg Mirella Mccracken [facility] Internal Medicine Work Phone: 01-12-2009 07:52-0400 BP Diastolic 78 mm[Hg] Mirella Mccracken [facility] Internal Medicine Work Phone: Comment on above: Patient Position: Sitting; Cuff Location : Left Arm; Cuff Size: Large 01-12-2009 07:52-0400 BP Systolic 122 mm[Hg] Mirella Mccracken [facility] Internal Medicine Work Phone: Comment on above: Patient Position: Sitting; Cuff Location : Left Arm; Cuff Size: Large 01-12-2009 07:52-0400 BSA (Body Surface Area) 1.56 m2 Mirella Mccracken [facility] Internal Medicine Work Phone: 01-12-2009 07:52-0400 Head Circumference 0 cm Mirella Mccracken [facility] Internal Medicine Work Phone: 01-12-2009 07:52-0400 Height 149.86 cm Mirella Mccracken [facility] Internal Medicine Work Phone: 01-12-2009 07:52-0400 Pulse (Heart Rate) 72 /min Mirella Mccracken [facility] Internal Medicine Work Phone: Comment on above: Pattern: Regular 01-12-2009 07:52-0400 Respiratory Rate 18 /min Mirella Mccracken [facility] Internal Medicine Work Phone: Comment on above: Pattern: Unlabored 01-12-2009 07:52-0400 Weight 61.46 kg Mirella Mccracken [facility] Internal Medicine Work Phone: 01-02-2009 09:31-0400 BMI (Body Mass Index) 27.37 kg/m2 Mirella Sol[facility] Internal Medicine Work Phone: 01-02-2009 09:31-0400 Body weight 61.46 kg Mirella Mccracken [facility] Internal Medicine Work Phone: 01-02-2009 09:31-0400 BP Diastolic 78 mm[Hg] Mirella Mccracken [facility] Internal Medicine Work Phone: Comment on above: Patient Position: Sitting; Cuff Location : Left Arm; Cuff Size: Large 01-02-2009 09:31-0400 BP Systolic 138 mm[Hg] Mirella Mccracken [facility] Internal Medicine Work Phone: Comment on above: Patient Position: Sitting; Cuff Location : Left Arm; Cuff Size: Large 01-02-2009 09:31-0400 BSA (Body Surface Area) 1.56 m2 Mirella Mccracken [facility] Internal Medicine Work Phone: 01-02-2009 09:31-0400 Head Circumference 0 cm Mirella Mccracken [facility] Internal Medicine Work Phone: 01-02-2009 09:31-0400 Height 149.86 cm Mirella Mccracken [facility] Internal Medicine Work Phone: 01-02-2009 09:31-0400 Pulse (Heart Rate) 72 /min Mirella Mccracken [facility] Internal Medicine Work Phone: Comment on above: Pattern: Regular 01-02-2009 09:31-0400 Respiratory Rate 20 /min Mirella Mccracken [facility] Internal Medicine Work Phone: Comment on above: Pattern: Unlabored 01-02-2009 09:31-0400 Weight 61.46 kg Mirella Mccracken [facility] Internal Medicine Work Phone: 12-07-2008 09:40-0400 BMI (Body Mass Index) 27.28 kg/m2 Mirella Solano [facility] Internal Medicine Work Phone: Comment on above: vision with correction OD= 20/50 OS=20/5 0 OU=20/50 12-07-2008 09:40-0400 Body weight 61.26 kg Mirella [facility] Work Phone: Comment on above: vision with correction OD= 20/50 OS=20/5 0 OU=20/50 12-07-2008 09:40-0400 BP Diastolic 78 mm[Hg] [facility] Medicine Work Phone: Comment on above: Patient Position: Sitting; Cuff Location : Left Arm; Cuff Size: Large vision with correcti on OD= 20/50 OS=20/50 OU=20/50 12-07-2008 09:40-0400 BP Systolic 122 mm[Hg] [facility] Medicine Work Phone: Comment on above: Patient Position: Sitting; Cuff Location : Left Arm; Cuff Size: Large vision with correcti on OD= 20/50 OS=20/50 OU=20/50 12-07-2008 09:40-0400 BSA (Body Surface Area) 1.56 m2 [facility] Work Phone: Comment on above: vision with correction OD= 20/50 OS=20/5 0 OU=20/50 12-07-2008 09:40-0400 Head Circumference 0 cm [facility] Work Phone: Comment on above: vision with correction OD= 20/50 OS=20/5 0 OU=20/50 12-07-2008 09:40-0400 Height 149.86 cm [facility] Medicine Work Phone: Comment on above: vision with correction OD= 20/50 OS=20/5 0 OU=20/50 12-07-2008 09:40-0400 Pulse (Heart Rate) 72 /min [facility] Medicine Work Phone: Comment on above: Pattern: Regular vision with correcti on OD= 20/50 OS=20/50 OU=20/50 12-07-2008 09:40-0400 Respiratory Rate 20 /min [facility] Medicine Work Phone: Comment on above: Pattern: Unlabored vision with correcti on OD= 20/50 OS=20/50 OU=20/50 12-07-2008 09:40-0400 Weight 61.26 kg Mirella Mccracken [facility] Internal Medicine Work Phone: Comment on above: vision with correction OD= 20/50 OS=20/5 0 OU=20/50 10-04-2008 09:20-0500 BMI (Body Mass Index) 26.31 kg/m2 Mirella Mccracken [facility] Internal Medicine Work Phone: 10-04-2008 09:20-0500 Body weight 59.08 kg Mirella Mccracken [facility] Internal Medicine Work Phone: 10-04-2008 09:20-0500 BP Diastolic 76 mm[Hg] [facility] Work Phone: Comment on above: Patient Position: Sitting; Cuff Location : Left Arm; Cuff Size: Large 10-04-2008 09:20-0500 BP Systolic 124 mm[Hg] Mirella Mccracken [facility] Internal Medicine Work Phone: Comment on above: Patient Position: Sitting; Cuff Location : Left Arm; Cuff Size: Large 10-04-2008 09:20-0500 BSA (Body Surface Area) 1.54 m2 Mirella Mccracken [facility] Internal Medicine Work Phone: 10-04-2008 09:20-0500 Head Circumference 0 cm Mirella Mccracken [facility] Internal Medicine Work Phone: 10-04-2008 09:20-0500 Height 149.86 cm [facility] Work Phone: 10-04-2008 09:20-0500 Pulse (Heart Rate) 72 /min Mirella Mccracken [facility] Internal Medicine Work Phone: Comment on above: Pattern: Regular 10-04-2008 09:20-0500 Respiratory Rate 20 /min Mirella Mccracken [facility] Internal Medicine Work Phone: Comment on above: Pattern: Unlabored 10-04-2008 09:20-0500 Weight 59.08 kg Mirella Mccracken [facility] Internal Medicine Work Phone: 09-21-2008 14:19-0500 BMI (Body Mass Index) 26.9 kg/m2 Mirella [facility] Medicine Work Phone: 09-21-2008 14:19-0500 Body weight 60.41 kg Mirella Mccracken [facility] Internal Medicine Work Phone: 09-21-2008 14:19-0500 BP Diastolic 80 mm[Hg] Mirella Mccracken [facility] Internal Medicine Work Phone: Comment on above: Patient Position: Sitting; Cuff Location : Left Arm; Cuff Size: Standard 09-21-2008 14:19-0500 BP Systolic 142 mm[Hg] Mirella Mccracken [facility] Internal Medicine Work Phone: Comment on above: Patient Position: Sitting; Cuff Location : Left Arm; Cuff Size: Standard 09-21-2008 14:19-0500 BSA (Body Surface Area) 1.55 m2 Mirella Mccracken [facility] Internal Medicine Work Phone: 09-21-2008 14:19-0500 Head Circumference 0 cm Mirella Mccracken [facility] Internal Medicine Work Phone: 09-21-2008 14:19-0500 Height 149.86 cm Mirella Mccracken [facility] Internal Medicine Work Phone: 09-21-2008 14:19-0500 Pulse (Heart Rate) 64 /min Mirella Mccracken [facility] Internal Medicine Work Phone: Comment on above: Pattern: Regular 09-21-2008 14:19-0500 Respiratory Rate 20 /min Mirella Mccracken [facility] Internal Medicine Work Phone: Comment on above: Pattern: Unlabored 09-21-2008 14:19-0500 Weight 60.41 kg Mirella Mccracken [facility] Internal Medicine Work Phone: 08-24-2008 13:56-0500 BMI (Body Mass Index) 26.9 kg/m2 Mirella Mccracken [facility] Internal Medicine Work Phone: 08-24-2008 13:56-0500 Body weight 60.41 kg Mirella Mccracken [facility] Internal Medicine Work Phone: 08-24-2008 13:56-0500 BP Diastolic 88 mm[Hg] Mirella Mccracken [facility] Internal Medicine Work Phone: Comment on above: Patient Position: Sitting; Cuff Location : Left Arm; Cuff Size: Standard 08-24-2008 13:56-0500 BP Systolic 142 mm[Hg] Mirella Mccracken [facility] Internal Medicine Work Phone: Comment on above: Patient Position: Sitting; Cuff Location : Left Arm; Cuff Size: Standard 08-24-2008 13:56-0500 BSA (Body Surface Area) 1.55 m2 Mirella Mccracken [facility] Internal Medicine Work Phone: 08-24-2008 13:56-0500 Head Circumference 0 cm Mirella Mccracken [facility] Internal Medicine Work Phone: 08-24-2008 13:56-0500 Height 149.86 cm Mirella Mccracken [facility] Internal Medicine Work Phone: 08-24-2008 13:56-0500 Pulse (Heart Rate) 80 /min Mirella Mccracken [facility] Internal Medicine Work Phone: Comment on above: Pattern: Regular 08-24-2008 13:56-0500 Respiratory Rate 20 /min Mirella Mccracken [facility] Internal Medicine Work Phone: Comment on above: Pattern: Unlabored 08-24-2008 13:56-0500 Weight 60.41 kg Mirella Mccracken [facility] Internal Medicine Work Phone: 06-28-2008 14:04-0400 BMI (Body Mass Index) 26.93 kg/m2 Mirella Mccracken [facility] Internal Medicine Work Phone: 06-28-2008 14:04-0400 Body weight 60.47 kg Mirella Mccracken [facility] Internal Medicine Work Phone: 06-28-2008 14:04-0400 BP Diastolic 78 mm[Hg] Mirella Mccracken [facility] Internal Medicine Work Phone: Comment on above: Patient Position: Sitting; Cuff Location : Left Arm; Cuff Size: Standard 06-28-2008 14:04-0400 BP Systolic 140 mm[Hg] Mirella Mccracken [facility] Internal Medicine Work Phone: Comment on above: Patient Position: Sitting; Cuff Location : Left Arm; Cuff Size: Standard 06-28-2008 14:04-0400 BSA (Body Surface Area) 1.55 m2 Mirella Mccracken [facility] Internal Medicine Work Phone: 06-28-2008 14:04-0400 Head Circumference 0 cm Mirella Mccracken [facility] Internal Medicine Work Phone: 06-28-2008 14:04-0400 Height 149.86 cm Mirella Mccracken [facility] Internal Medicine Work Phone: 06-28-2008 14:04-0400 Pulse (Heart Rate) 68 /min Mirella Mccracken [facility] Internal Medicine Work Phone: Comment on above: Pattern: Regular 06-28-2008 14:04-0400 Respiratory Rate 16 /min Mirella Mccracken [facility] Internal Medicine Work Phone: Comment on above: Pattern: Unlabored 06-28-2008 14:04-0400 Weight 60.47 kg Mirella Mccracken [facility] Internal Medicine Work Phone: Encounters Encounter Date Encounter Type Care Provider Facility Start: 02-13-2025 ambulatory Yesika Faust Facili ty:[facility] Start: 01-23-2025 ambulatory Efky Christiansone Facili ty:[facility] Start: 01-23-2025 Registered Referred Zeina Dolan Start: 01-18-2025 End: 01-18-2025 Departed Referred Yesika Dolan Start: 01-18-2025 Registered Referred Yesika Dolan Start: 01-18-2025 End: 01-18-2025 ambulatory Yesika Faust Facility:[facility] Start: 01-14-2025 End: 01-14-[address] Yesika Faust MD Work Phone: [facility] Work Phone: Start: 01-14-2025 End: 01-14-2025 Departed Referred Yesika Alvarezton Start: 01-14-2025 End: 01-14-2025 ambulatory Yesika VICENTE Facility:[facility] Start: 01-12-2025 End: 01-12-[address] Yesika Faust MD Work Phone: [facility] Work Phone: Start: 01-12-2025 End: 01-12-2025 Departed Referred Yesika Dolan Start: 01-12-2025 Registered Referred Yesika Dolan Start: 01-12-2025 End: 01-12-2025 ambulatory Yesika VICENTE Facility:[facility] Start: 12-14-2024 End: 12-14-[address] Yesika Faust MD Work Phone: [facility] Work Phone: Start: 12-14-2024 End: 12-14-2024 Departed Referred Yesika Dolan Start: 12-14-2024 Registered Referred Yesika Dolan Start: 12-14-2024 End: 12-14-2024 ambulatory Yesika VICENTE Facility:[facility] Start: 11-15-2024 End: 11-15-2024 [place]ulatory [place]ust [place] [place]: 11-15-2024 End: 11-15-[address] Yesika Faust MD -[facility] Work Phone: Start: 11-14-2024 End: 11-14-[address] Yesika Faust MD Work Phone: [facility] Work Phone: Start: 11-14-2024 End: 11-14-2024 Departed Referred Yesika Dolan Start: 11-14-2024 End: 11-14-2024 ambulatory Efewongbe Oleghe OLS Facility:[facility] Start: 10-27-2024 End: 10-27-2024 ambulatory Efewongbe Oleghe Facility:[facility] Start: 10-27-2024 End: 10-27-2024 Patient encounter procedure Miguel YATES -[facility] Work Phone: Start: 10-17-2024 ambulatory Efewongbe Oleghe OLS Fa cility:[facility] Start: 10-17-2024 Registered Referred Yesika DasSoniya Dolan Start: 10-14-2024 ambulatory Efewongbe Sammye OLS Fa cility:[facility] Start: 10-14-2024 Registered Referred Yesika DasSoniya Dolan Start: 09-20-2024 End: 09-20-2024 ambulatory Efenriquetaongbe Sammye Facility:[facility] Start: 09-20-2024 End: 09-20-[address] Yesika Faust MD -[facility] Work Phone: Start: 09-16-2024 ambulatory Efenriquetaongbe Sammye OLS Fa cility:[facility] Start: 09-16-2024 Registered Referred Yesika Dolan Start: 08-16-2024 End: 08-16-2024 Departed Referred Yesika Dolan Start: 08-16-2024 End: 08-16-2024 ambulatory Efewongbe Sammye OLS Facility:[facility] Start: 08-09-2024 End: 08-09-2024 ambulatory Efewongbe Sammye Facility:[facility] Start: 08-04-2024 End: 08-04-2024 ambulatory Zeina Balbuena NP Facility:[facility] Start: 08-04-2024 End: 08-04-2024 ambulatory Efewongbe Oleghe OLS Facility:[facility] Start: 08-02-2024 End: 08-02-2024 ambulatory Efewongbe Oleghe Facility:[facility] Start: 07-28-2024 End: 07-28-2024 ambulatory Efewongbe Oleghe Facility:[facility] Start: 07-04-2024 End: 07-04-2024 ambulatory Zeina Balbuena DRYERMAN/WOMAN Facility:[facility] Start: 06-27-2024 End: 06-27-2024 ambulatory Carmen Azulo Facility:[facility] Start: 06-06-2024 End: 06-06-2024 ambulatory Zeina Balbuena DRYERMAN/WOMAN Facility:[facility] Start: 05-27-2024 End: 05-27-2024 ambulatory Efewongbe Oleghe Facility:[facility] Start: 05-17-2024 End: 05-17-2024 ambulatory Efewongbe Oleghe Facility:[facility] Start: 05-17-2024 End: 05-17-2024 [facility] [place] Start: 05-06-2024 End: 05-06-2024 ambulatory Efewongbe Oleghe Facility:[facility] Start: 04-29-2024 End: 04-29-2024 ambulatory Efewongbe Oleghe Facility:[facility] Start: 04-29-2024 ambulatory Efewongbe Oleghe Facili ty:[facility] Start: 04-14-2024 End: 04-14-2024 ambulatory Efewongbe Oleghe Facility:[facility] Start: 04-04-2024 End: 04-04-2024 ambulatory Efewongbe Oleghe Facility:[facility] Start: 12-22-2023 End: 12-22-[address] Cl Tsang Work Phone: [facility] Work Phone: Start: 11-30-2023 End: 11-30-[address] Cl Tsang Work Phone: [facility] Work Phone: Start: 11-17-2023 End: 11-17-[address] Cl Tsang Work Phone: [facility] Work Phone: Start: 11-17-2023 End: 11-17-[address] Cl Tsang Work Phone: [facility] Start: 10-20-2023 End: 10-20-[address] Cl Tsang Work Phone: [facility] Work Phone: Start: 10-08-2023 End: 10-08-[address] Cl Tsang Work Phone: [facility] Work Phone: Start: 08-25-2023 End: 08-25-[address] Cl Tsang Work Phone: [facility] Work Phone: Start: 08-18-2023 End: 08-18-[address] Cl Tsang Work Phone: [facility] Work Phone: Start: 08-18-2023 End: 08-18-[address] Cl Tsang Work Phone: [facility] Start: 06-30-2023 End: 06-30-[address] Cl Tsang Work Phone: [facility] Work Phone: Start: 06-08-2023 End: 06-08-[address] Cl Tsang Work Phone: [facility] Work Phone: Start: 06-04-2023 End: 06-04-[address] Cl Tsang Work Phone: [facility] Work Phone: Start: 05-28-2023 End: 05-28-[address] Cl Tsang Work Phone: [facility] Work Phone: Start: 05-21-2023 End: 05-21-[address] Cl Tsang Work Phone: [facility] Work Phone: Start: 05-19-2023 End: 05-19-[address] Cl Tsang Work Phone: [facility] Start: 05-13-2023 End: 05-13-[address] Cl Tsang Work Phone: [facility] Work Phone: Start: 04-09-2023 End: 04-09-[address] Cl Tsang Work Phone: [facility] Work Phone: Start: 04-07-2023 End: 04-07-[address] Cl Tsang Work Phone: [facility] Work Phone: Start: 02-17-2023 End: 02-17-[address] Cl Tsang Work Phone: [facility] Work Phone: Start: 02-17-2023 End: 02-17-[address] Cl Tsang Work Phone: [facility] Work Phone: Start: 02-17-2023 End: 02-17-[address] Cl Tsang Work Phone: [facility] Start: 02-10-2023 End: 02-10-[address] Cl Tsang Work Phone: [facility] Work Phone: Start: 01-12-2023 End: 01-12-[address] Cl Tsang Work Phone: [facility] Work Phone: Start: 01-12-2023 End: 01-12-[address] Cl Tsang Work Phone: [phone] Start: 12-29-2022 End: 12-29-[address] Cl Tsang Work Phone: [facility] Start: 12-23-2022 End: 12-23-[address] Cl Tsang Work Phone: [facility] Start: 12-05-2022 End: 12-05-[address] Cl Tsang Work Phone: [facility] Start: 11-18-2022 End: 11-18-[address] Cl Tsang Work Phone: [facility] Work Phone: Start: 11-18-2022 End: 11-18-[address] Cl Tsang Work Phone: [facility] Start: 10-28-2022 End: 10-28-[address] Cl Tsang Work Phone: [facility] Start: 10-17-2022 End: 10-17-[address] Cl Tsang Work Phone: [facility] Start: 10-08-2022 End: 10-08-[address] Cl Tsang Work Phone: [facility] Start: 09-01-2022 End: 09-01-[address] Cl Tsang Work Phone: [facility] Start: 08-19-2022 End: 08-19-[address] Cl Tsang Work Phone: [facility] Work Phone: Start: 08-19-2022 End: 08-19-[address] Cl Tsang Work Phone: [facility] Start: 07-29-2022 End: 07-29-[address] Cl Tsang Work Phone: [facility] [facility] Start: 05-29-2022 End: 05-30-[address] Cl Tsang Work Phone: [facility] Start: 05-20-2022 End: 05-20-[address] Cl Tsang Work Phone: [facility] Work Phone: Start: 05-20-2022 End: 05-20-[address] Cl Tsang Work Phone: [facility] Start: 04-18-2022 End: 04-18-[address] Cl Tsang Work Phone: [facility] Start: 03-07-[address] Cl herrera Work Phone: [facility] Start: 01-13-2022 End: 01-13-[address] Cl Tsang Work Phone: [facility] Start: 11-14-2021 End: 11-14-2021 Patient encounter procedure TRUDY YATES Work Phone: [facility] Start: 11-12-2021 End: 11-12-2021 Departed Referred TRUDY YATES Work Phone: [facility] Start: 09-30-2021 End: 09-30-2021 Patient encounter procedure TRUDY YATES Work Phone: [facility] Start: 05-05-2019 Review Mirella Mccracken [...] Office outpatient visit 15 minutes Mirella Mccracken [facility] Start: 09-18-2017 End: 09-18-2017 Office outpatient visit 25 minutes Mirella Mccracken [facility] Start: 05-07-2017 End: 05-07-2017 Office outpatient visit 25 minutes Mirella Mccracken [facility] Start: 03-26-2017 End: 03-26-2017 Office outpatient visit 10 minutes Mirella [facility] Start: 12-25-2016 End: 12-25-2016 Office outpatient visit 25 minutes Mirella Mccracken [facility] Start: 09-25-2016 End: 09-25-2016 Office outpatient visit 15 minutes Mirella Mccracken [facility] Start: 09-16-2016 End: 09-17-2016 Office outpatient visit 5 minutes Mirella Mccracken [facility] Start: 07-02-2016 End: 07-02-2016 Phone Encounter Mirella [facility] Start: 07-01-2016 End: 07-01-2016 Office outpatient visit 5 minutes Mirella [facility] Start: 06-25-2016 End: 06-25-2016 Office outpatient visit 25 minutes Mirella Mccracken [facility] Start: 05-21-2016 End: 05-21-2016 Office [...] Start: 05-23-2015 End: 05-23-2015 Annotation/Addendum Mirella Sunshine [facility] Start: 05-23-2015 End: 05-23-2015 Office outpatient visit 5 minutes Mirella Mcc[facility] Start: 05-16-2015 End: 05-16-2015 Office outpatient visit 5 minutes Mirella Mccracken [facility] Start: 05-09-2015 End: 05-09-2015 Office outpatient visit 5 minutes Mirella Mccracken [facility] Start: 04-26-2015 End: 04-26-2015 Phone Encounter Mirella Sunshine [facility] Start: 04-19-2015 End: 04-19-2015 Office [...] 09-11-2014 End: 09-11-2014 Phone Encounter Mirella Sunshine [facility] Start: 08-31-2014 End: 08-31-2014 Office [...] Office outpatient new 20 minutes Mirella Mccracken [facility] Start: 07-13-2014 End: 07-14-2014 Office outpatient visit 15 minutes Mirella Mccracken [facility] Start: 04-17-2014 End: 04-17-2014 Office outpatient visit 15 minutes Mirella Mccracken [facility] Start: 04-13-2014 End: 04-13-2014 Phone Encounter Mirella Sunshine [facility] Start: 04-06-2014 End: 04-06-2014 Patient encounter procedure Mirella Mccracken [facility] Start: 04-06-2014 End: 04-06-2014 Patient encounter procedure Mirella Mccracken [facility] Start: 12-30-2013 End: 12-30-2013 Patient encounter procedure Mirella Mccracken [facility] Start: 12-22-2013 End: 12-22-2013 Patient encounter procedure Mirella Mccracken [facility] Start: 12-01-2013 End: 12-01-2013 Phone Encounter Mirella Mccracken [facility] Start: 12-01-2013 End: 12-01-2013 Patient encounter procedure Mirella Mccracken [facility] Start: 09-23-2013 End: 09-23-2013 Patient encounter procedure Mirella Mccracken [facility] Start: 09-13-2013 End: 09-13-2013 Phone Encounter Mirella Mccracken [facility] Start: 08-01-2013 End: 08-01-2013 Patient encounter procedure Mirella Mccracken [facility] Start: 07-04-2013 End: 07-04-2013 Patient encounter procedure Mirella Mccracken [facility] Start: 06-27-2013 End: 06-27-2013 Patient encounter procedure Mirella Mccracken [facility] Start: 06-20-2013 End: 06-20-2013 Patient encounter procedure Mirella Mccracken [facility] Start: 06-08-2013 End: 06-08-2013 Patient encounter procedure Mirella Mccracken [facility] Start: 05-20-2013 End: 05-20-2013 Patient encounter procedure Mirella Mccracken [facility] Start: 04-22-2013 End: 04-22-2013 Patient encounter procedure Mirella Mccracken [facility] Start: 04-15-2013 End: 04-15-2013 Patient encounter procedure Mirella Mccracken [facility] Start: 03-31-2013 End: 03-31-2013 Patient encounter procedure Mirella Mccrackne [facility] Start: 02-28-2013 End: 02-28-2013 Patient encounter procedure Mirella Mccracken [facility] Start: 11-15-2012 End: 11-15-2012 Patient encounter procedure Mirella Mccracken [facility] Start: 10-25-2012 End: 10-25-2012 Patient encounter procedure Mirella Mccracken [facility] Start: 10-21-2012 End: 10-21-2012 Patient encounter procedure Mirellaleatha Mccracken [facility] Start: 09-30-2012 End: 09-30-2012 Patient encounter procedure Mirellaleatha Mccracken [facility] Start: 09-30-2012 End: 09-30-2012 Phone Encounter Mirellaleatha Mccracken [facility] Start: 09-16-2012 End: 09-16-2012 Patient encounter procedure Mirellaleatha Mccracken [facility] Start: 05-27-2012 End: 05-28-2012 Nursing evaluation of patient and report Mirellaleatha Searson [facility] Start: 03-11-2012 End: 03-11-2012 Patient encounter procedure Mirellaleatha Searson [facility] Start: 03-04-2012 End: 03-05-2012 Patient encounter procedure Mirellaleatha Mccracken [facility] Start: 02-25-2012 End: 02-25-2012 Patient encounter procedure Mirellaleatha Mccracken [facility] Start: 02-05-2012 End: 02-05-2012 Phone Encounter Mirellaleatha Mccracken [facility] Start: 02-04-2012 End: 02-04-2012 Phone Encounter Mirellaleatha Searson [facility] Start: 01-30-2012 End: 01-30-2012 Patient encounter procedure Mirellaleatha Searson [facility] Start: 01-15-2012 End: 01-15-2012 Patient encounter procedure Mirella Nicole [facility] Start: 12-31-2011 End: 12-31-2011 Patient encounter procedure Mirellaleatha Searson [facility] Start: 12-26-2011 End: 12-26-2011 Patient encounter procedure Mirellaleatha Searson [facility] Start: 12-24-2011 End: 12-24-2011 Patient encounter procedure Mirella Mccracken [facility] Start: 12-15-2011 End: 12-15-2011 Patient encounter procedure Mirella Mccracken [facility] Start: 11-26-2011 End: 11-26-2011 Patient encounter procedure Mirellaleatha Searson [facility] Start: 11-12-2011 End: 11-12-2011 Patient encounter procedure Mirella Searson [facility] Start: 11-06-2011 End: 11-06-2011 Office outpatient visit 25 minutes Mirella Mccracken [facility] Start: 10-22-2011 End: 10-22-2011 Annotation/Addendum Mirella Mccracken [facility] Start: 10-21-2011 End: 10-21-2011 Office outpatient visit 25 minutes Mirella Mccracken [facility] Start: 06-05-2011 End: 06-05-2011 Patient encounter procedure Mirella Nicole [facility] Start: 05-08-2011 End: 05-08-2011 Patient encounter procedure Mirellaleatha Searson [facility] Start: 05-07-2011 End: 05-07-2011 Office outpatient visit 15 minutes Mirella Mccracken [facility] Start: 05-06-2011 End: 05-06-2011 Office outpatient visit 15 minutes Mirella Nicole [facility] Start: 11-06-2010 End: 11-06-2010 Office outpatient visit 15 minutes Mirella Mccracken [facility] Start: 11-04-2010 End: 11-04-2010 Office outpatient visit 15 minutes Mirella Mccracken [facility] Start: 10-14-2010 End: 10-14-2010 Patient encounter procedure Mirella Nicole [facility] Start: 07-17-2010 End: 07-17-2010 Patient encounter procedure Mirella Nicole [facility] Start: 06-17-2010 End: 06-17-2010 Patient encounter procedure Mirella Nicole [facility] Start: 01-25-2010 End: 01-25-2010 Patient encounter procedure Mirella Nicole [facility] Start: 12-13-2009 End: 12-13-2009 Patient encounter procedure Mirella Mccracken [facility] Start: 10-03-2009 End: 10-03-2009 Office outpatient visit 10 minutes Mirella Mccracken [facility] Start: 06-13-2009 End: 06-13-2009 Patient encounter procedure Mirella Mccracken [facility] Start: 01-17-2009 End: 01-17-2009 Office outpatient visit 15 minutes Mirella Mccracken [facility] Start: 01-12-2009 End: 01-12-2009 Office outpatient visit 25 minutes Mirella Mccracken [facility] Start: 01-02-2009 End: 01-02-2009 Patient encounter procedure Mirella Mccracken [facility] Start: 12-07-2008 End: 12-07-2008 Patient encounter procedure Mirella Mccracken [facility] Start: 10-04-2008 End: 10-04-2008 Patient encounter procedure Mirella Mccracken [facility] Start: 09-21-2008 End: 09-21-2008 Office outpatient visit 25 minutes Mirella Mccracken [facility] Start: 08-24-2008 End: 08-24-2008 Patient encounter procedure Mirella Mccracken [facility] Start: 06-28-2008 End: 06-28-2008 Patient encounter procedure Mirella Mccracken [facility] Start: 06-28-2008 End: 06-28-2008 Patient encounter procedure Mirella Mccracken [facility] Start: 06-26-2008 End: 06-26-2008 Historical Summary Mirella Mccracken [facility] Procedures Date Procedure Procedure Detail Performing Clinician Start: 01-14-2025 Urnls dip stick/tablet reagent auto microscopy Dr. Yesika Faust MD Work Phone: Start: 01-14-[address] Yesika Faust MD Work Phone: Start: 10-17-2024 Measurement [...] 1 View (Portable) Comments: See Note; NOTES: [facility] Imaging Services [address] [place] [address] Chest 1 View (Portable) MR#: [id number] Acct: [id number] Name: AGUSTIN GARCIA Rep #: [id number] : 1940 F 79 From: Antoni Gaviria MD PCP: Mirella Mccracken DO Status: [facility] Study: Chest 1 View (Portable) Date of Exam: 05/27/19 Exam# [id number] Ordering Dr: Satish Gonzales MD STUDY: X-RAY [...] sternotomy changes are noted. Normal mediastinum and karhtik. Normal visualized pulmonary arteries. There are calcified [...] CC: Satish Gonzales MD; Mirella Mccracken DO Lead Architect: Signed Mirella Mccracken Start: 05-27-2019 End: 05-27-2019 Shoulder min 2 Views Comments: See Note; NOTES: [facility] Imaging Services [address] [place] [address] Shoulder min 2 Views MR#: [id number] Acct: [id number] Name: AGUSTIN GARCIA Rep #: [id number] : 1940 F 79 From: Antoni Gaviria MD PCP: Mirella Mccracken DO Status: [facility] Study: Shoulder min 2 Views Date of Exam: 05/27/19 Exam# [id number] Ordering Dr: Aury Hyde MD STUDY: X-RAY [...] CC: Aury Hyde MD; Mirella Mccracken DO Lead Architect: Signed Mirella Mccracken Start: 05-27-2019 End: 05-27-2019 Operative Report Comments: See Note; NOTES: [facility] Medical Records Department [address] [place] [address] Operative Report 05/27/19 1615 MR#: [id number] Acct: [id number] Name: AGUSTIN GRACIA Rep #: [id number] : 1940 79 From: Uriel Francois MD PCP: Mirella Mccracken DO Status: REG SDC Y Location: [place] [address] Report of Operation Date of Procedure: 05/27/19 [...] went into the bladder with a 21 [place] rigid cystourethroscope cannulated the left ureteral orifice [...] 05-27-2019 Discharge Instruction Comments: See Note; NOTES: [facility] Medical Records Department [address] [place] [address] Instructions for Home/Discharge Instructions 05/27/19 1614 MR#: [id number] Acct: [id number] Name: AGUSTIN GARCIA Rep #: [id number] : 1940 79 From: Uriel Francois MD PCP: Mirella Mccracken DO Status: REG [facility] Discharge Diet: Light diet - advance as [...] or 2 Views Comments: See Note; NOTES: [facility] Imaging Services [address] [place] [address] Pelvis 1 or 2 Views MR#: [id number] Acct: [id number] Name: AGUSTIN GARCIA Rep #: [id number] : 1940 F 79 From: Antoni Gaviria MD PCP: Mirella Mccracken DO Status: [facility] Study: Pelvis 1 or 2 Views Date of Exam: 05/27/19 Exam# [id number] Ordering Dr: Uriel Francois MD STUDY: X-RAY [...] CC: Uriel Francois MD; Mirella Mccracken DO Lead Architect: Signed Mirella Mccracken Start: 05-05-2019 End: 05-05-2019 Abdomen/Pelvis WITH Contrast Comments: See Note; NOTES: [facility] Imaging Services [address] [place] [address] Abdomen/Pelvis WITH Contrast MR#: [id number] Acct: [id number] Name: AGUSTIN GARCIA Rep #: [id number] : 1940 F 79 From: Zoran Reinoso MD PCP: Mirella Mccracken DO Status: REG CLI Study: Abdomen/Pelvis WITH Contrast Date of Exam: 05/05/19 Exam# [id number] Ordering Dr: Mirella Mccracken DO STUDY: CT [...] Service support , CC: Mirella Mccracken DO Lead Architect: Signed Mirella Mccracken Work Phone: Start: 03-18-2019 End: 03-18-2019 Pelvic (Non ) Comments: See Note; NOTES: [facility] Imaging Services [address] [place] [address] Pelvic (Non ) MR#: [id number] Acct: [id number] Name: RADHAAGUSTIN Rep #: [id number] : 1940 F 78 From: Avi Fisher MD PCP: Mirella Mccracken DO Status: REG CLI Study: Pelvic (Non ) Date of Exam: 03/18/19 Exam# [id number] Ordering Dr: Mirella Mccracken DO STUDY: ULTRASOUND [...] Service support , CC: Mirella Mccracken DO Lead Architect: Signed Mirella Mccracken Work Phone: Start: 03-15-2019 End: 03-15-2019 Venous Duplex Lower Extremity Comments: See Note; NOTES: [facility] Cardiovascular Services [address] [place] [address] Venous Duplex US, Unilateral 03/15/19 1340 MR#: [id number] Acct: [id number] Name: AGUSTIN GARCIA Rep #: [id number] : 1940 78 From: James Moctezuma MD [...] Dictated: 03/15/19 1340 Date Transcribed: 03/15/19 142 Lead Architect: Signed Mirella Mccracken Work Phone: Start: 11-17-2017 End: 11-17-2017 PT D/C Summary (1) Comments: See Note; NOTES: [facility] Therapy Health[address] [place] [address] Fax REHABILITATION SERVICES DISCHARGE SUMMARY MR#: [id number] Acct: [id number] Name: AGUSTIN GARCIA Rep #: [id number] : 1940 77 From: Chester Christine DPT, [...] please feel free to call me at [phone]. Thank you for the referral of this patient. Sincerely, Chester Christine DPT, OC <Electronically signed by Chester Christine DPT, MAKEDA, CSCS> 11/17/17 0920 CC: Mirella Mccracken DO EBG Signed Mirella Mccracken Start: 11-13-2017 End: 11-13-2017 Inital Evaluation (1) - PT Comments: See Note; NOTES: [facility] [address] [place] [address]. [address] [place] [address] Fax REHABILITATION SERVICES INITIAL EVALUATION MR#: [id number] Acct: [id number] Name: AGUSTIN GARCIA Rep #: [id number] : 1940 77 From: Chester Christine DPT, MAKEDA, CSCS Referring DrSamaria: Mirella Mccracken DO Status: REG RCR Insurance: MEDICARE PART A B [facility] Patient's Visit Information AGUSTIN GARCIA is a [...] to be FAXED BACK to us at [phone] for Medicare purposes. Please let me know [...] Min 2 Views Comments: See Note; NOTES: [facility] Imaging Services [address] [place] [address] Femur Min 2 Views MR#: [id number] Acct: [id number] Name: AGUSTIN GARCIA Rep #: [id number] : 1940 F 77 From: Edward Jha MD PCP: Mirella Mccracken DO Status: REG CLI Study: Femur Min 2 Views Date of Exam: 10/15/17 Exam# [id number] Ordering Dr: Mirella Mccracken DO STUDY: X-RAY [...] Edward Jha MD at 15:48 EST Tel [phone], Service support , CC: Mirella Mccracken DO Lead Architect: Signed Mirella Mccracken Work Phone: Start: 10-15-2017 End: 10-15-2017 Hip 2-3 Views with Pelvis Comments: See Note; NOTES: [facility] Imaging Services [address] [place] [address] Hip 2-3 Views with Pelvis MR#: [id number] Acct: [id number] Name: AGUSTIN GARCIA Rep #: [id number] : 1940 F 77 From: Edward Jha MD PCP: Mirella Mccracken DO Status: REG CLI Study: Hip 2-3 Views with Pelvis Date of Exam: 10/15/17 Exam# [id number] Ordering Dr: Mirella Mccracken DO STUDY: X-RAY [...] Edward Jha MD at 15:54 EST Tel [phone], Service support , STUDY: X-RAY - PELVIS [...] Edward Jha MD at 15:55 EST Tel [phone], Service support , CC: Mirella Mccracken DO Lead Architect: Signed Mirella Mccracken Work Phone: Start: 06-05-2017 End: 06-05-2017 Follow Up Appt 6 months Jose Vargas MD Start: 06-05-2017 End: 06-05-2017 [facility] Jose Vargas MD Start: 03-26-2017 End: 03-26-2017 Ribs Uni Min 3V w/PA Chest Comments: See Note; NOTES: [facility] Imaging Services [address] [place] [address] Radha 4d Ribs Uni Min 3V w/PA Chest MR#: [id number] Acct: [id number] Name: AGUSTIN GARCIA Rep #: [id number] : 1940 F 76 From: Tomas Pat MD PCP: Mirella Mccracken DO Status: REG CLI Study: Ribs Uni Min 3V w/PA Chest Date of Exam: 03/26/17 Exam# [id number] Ordering Dr: Stephenie Burkett MD STUDY: X-RAY [...] CC: Stephenie Burkett MD; Mirella Mccracken DO Lead Architect: Signed Stephenie Burkett Work Phone: Start: 11-13-2016 End: 11-13-2016 Kidney and Bladder Comments: See Note; NOTES: [facility] [address] [place] [address] Verdana 4d Kidney and Bladder MR#: [id number] Acct: [id number] Name: AGUSTIN GARCIA Rep #: [id number] : 1940 F 76 From: Mackenzie Ortega MD PCP: Mirella Mccracken DO Status: REG CLI Study: Kidney and Bladder Date of Exam: 11/13/16 Exam# [id number] Ordering Dr: Uriel Francois MD STUDY: RENAL [...] MD at 16:03 EST , Service support [phone], CC: Uriel Francois MD; Mirella Mccracken DO Lead Architect: Signed Mirella Mccracken Start: 11-03-2016 End: 11-03-2016 Follow Up Appt 9 months Zaria Trevino PA-C Work Phone: Start: 11-03-2016 End: 11-03-2016 [facility] Zaria Trevino PA-C Work Phone: Start: 07-07-2016 End: 07-07-2016 Breast Limited Unilateral Comments: See Note; NOTES: [facility] Imaging Services [address] [place] [address] Verdana 4d Breast Limited Unilateral MR#: [id number] Acct: [id number] Name: AGUSTIN GARCIA Rep #: [id number] : 1940 F 76 From: Edward Jha MD PCP: Mirella Mccracken DO Status: REG CLI Study: Breast Limited Unilateral Date of Exam: 07/07/16 Exam# [id number] Ordering Dr: Mirella Mccracken DO STUDY: ULTRASOUND [...] Edward Jha MD at 15:23 EDT Tel [phone], Service support [phone], CC: Mirella Mccracken DO Lead Architect: Signed Mirella Mccracken Work Phone: Start: 07-07-2016 End: 07-07-2016 Unilat Rt Diag Digital AND CAD Comments: See Note; NOTES: [facility] Imaging Services [address] [place] [address] Verdana 4d Unilat Rt Diag Digital AND CAD MR#: [id number] Acct: [id number] Name: AGUSTIN GARCIA Rep #: [id number] : 1940 F 76 From: Edward Jha MD PCP: Mirella Mccracken DO Status: REG CLI Study: Unilat Rt Diag Digital AND CAD Date of Exam: 07/07/16 Exam# [id number] Ordering Dr: Mirella Mccracken DO MAMMOGRAPHY - [...] Edward Jha MD at 15:21 EDT Tel [phone], Service support [phone], CC: Mirella Mccracken DO Lead Architect: Signed Mirella Mccracken Work Phone: Start: 05-21-2016 End: 05-22-2016 Foot min 3 Views Comments: See Note; NOTES: [facility] Imaging Services [address] [place] [address] Verdana 4d Foot min 3 Views MR#: [id number] Acct: [id number] Name: AGUSTIN GARCIA Rep #: [id number] : 1940 F 76 From: Edward Jha MD PCP: Mirella Mccracken DO Status: REG CLI Study: Foot min 3 Views Date of Exam: 05/21/16 Exam# [id number] Ordering Dr: Mirella Mccracken DO STUDY: X-RAY [...] Edward Jha MD at 9:42 EDT Tel [phone], Service support [phone], CC: Mirella Mccracken DO Lead Architect: Signed Mirella Mccracken Work Phone: Start: 05-07-2016 End: 05-07-2016 Follow Up Appt 6 months Jose Vargas MD Start: 05-07-2016 End: 05-07-2016 MMClara Vargas MD Start: 01-04-2016 End: 01-04-2016 Ecg routine ecg w/least 12 lds w/i&r [MEASUREMENTS ANALYSIS] Date of Test: 01/04/2016 10:09:41; Heart Rate: 59; PA Interval: 158; QRS: 88; QT Interval: 432; Corrected QT Interval (QTc): 431; P Wave [place]: 32; QRS Wave [place]: 10; T Wave [place]: 47; Blood Pressure: 110/64 [ECG DIAGNOSTIC STATEMENTS] Date of Test: 01/04/2016 10:09:41; Summary: Sinus Bradycardia WITHIN NORMAL LIMITS Mirella Mccracken Work Phone: Comment on above: sinus elin no acute chg Start: 11-29-2015 End: 11-29-2015 Carotid Duplex Ultrasound Comments: See Note; NOTES: [facility] Cardiovascular Services [address] [place] [address] Carotid Duplex Ultrasound 11/20/15 1035 MR#: [id number] Acct: [id number] Name: AGUSTIN GARCIA Rep #: [id number] : 1940 75 From: Miko Cutler MD Attending Dr: Zaria Bustamante Status: REG CLI Ordering Dr: Zaria Bustamante PA Date: 11/20/15 Location: [facility] Sex: F C Admitted: Reason For [...] the left vertebral artery. Procedure Carotid Duplex 97926. The exam was diagnostic. Exam performed in [...] Date Dictated: 11/20/15 1035 Date Transcribed: 11/29/15 4946 Lead Architect: Signed Mirella Mccracken Start: 11-13-2015 End: 11-13-2015 Bilat Scrn Digital AND CAD Comments: See Note; NOTES: [facility] Imaging Services [address] [place] [address] Verdana 4d Bilat Scrn Digital AND CAD MR#: [id number] Acct: [id number] Name: AGUSTIN GARCIA Rep #: [id number] : 1940 F 75 From: Edward Jha MD PCP: Mirella Mccracken DO Status: REG CLI Study: Bilat Scrn Digital AND CAD Date of Exam: 11/13/15 Exam# [id number] Ordering Dr: Mirella Mccracken DO MAMMOGRAPHY - [...] delay biopsy of a clinically suspicious abnormality. [id number] Electronically Signed: Edward Jha MD at 14:46 EST Tel [phone], Service support [phone], CC: Mirella Mccracken DO Lead Architect: Signed Mirella Mccracken Work Phone: Start: 11-05-2015 [...] Cervical without Contras Comments: See Note; NOTES: [facility] [address] [place] [address] CAT Scan Report MR#: [id number] Acct: [id number] Name: AGUSTIN GARCIA Clara Rep #: [id number] : 1940 F 75 From: Otoniel Tam MD PCP: Mirella Mccracken DO Status: REG CLI Study: Spine Cervical without Contras Date of Exam: 06/07/15 Exam# [id number] Ordering Dr: Louis Tsang STUDY: CT CERVICAL [...] MD at 16:59 EDT , Service support [phone], CC: Mirella Mccracken DO; LOUIS TSANG Lead Architect: Signed Mirella Mccracken Start: 05-22-2015 End: 05-23-2015 Spine Lumbar without Contrast Comments: See Note; NOTES: [facility] [address] [place] [address] CAT Scan Report MR#: [id number] Acct: [id number] Name: AGUSTIN GARCIA Rep #: [id number] : 1940 F 75 From: Ruddy Pozo MD PCP: Mirella Mccracken DO Status: REG CLI Study: Spine Lumbar without Contrast Date of Exam: 05/22/15 Exam# [id number] Ordering Dr: Louis Tsang STUDY: CT LUMBAR [...] at 10:05 EDT Tel , Service support [phone], CC: Mirella Mccracken DO; [place] TSANG Lead Architect: Signed Mirella Mccracken Start: 05-09-2015 End: 05-10-2015 Documentation of current medications Jose Vargas MD Start: 05-09-2015 End: 05-09-2015 Follow Up Appt 6 months Jose Vargas MD Start: 05-09-2015 End: 10-23-2016 Follow Up Appt Other Jose Vargas MD Start: 05-09-2015 End: 05-09-2015 MMM Jose Vargas MD Start: 04-26-2015 End: 04-26-2015 Brain/Head W/WO Contrast Comments: See Note; NOTES: [facility] [address] [place] [address] CAT Scan Report MR#: [id number] Acct: [id number] Name: AGUSTIN GARCIA Rep #: [id number] : 1940 F 74 From: Edward Jha MD PCP: Mirella Mccracken DO Status: REG CLI Study: Brain/Head W/WO Contrast Date of Exam: 04/26/15 Exam# [id number] Ordering Dr: Mirella Mccracken DO STUDY: CT [...] Edward Jha MD at 12:51 EDT Tel [phone], Service support [phone], CC: Mirella Mccracken DO Lead Architect: Signed Mirella Mccracken Work Phone: Start: 10-24-2014 End: 10-24-2014 Breast Complete Unilateral Comments: See Note; NOTES: [facility] [address] [place] [address] Ultrasound Report MR#: [id number] Acct: [id number] Name: AGUSTIN GARCIA Rep #: [id number] : 1940 F 74 From: Edward Jha MD PCP: Mirella Mccracken DO Status: REG CLI Study: Breast Complete Unilateral Date of Exam: 10/24/14 Exam# [id number] Ordering Dr: Mirella Mccracken DO STUDY: ULTRASOUND [...] Edward Jha MD at 11:15 EST Tel [phone], Service support [phone], CC: Mirella Mccracken DO Lead Architect: Signed Mirella Mccracken Work Phone: Start: 10-24-2014 End: 10-25-2014 Dexa Bone Density Study (HP) Comments: See Note; NOTES: [facility] [address] [place] [address] Bone Density Report MR#: [id number] Acct: [id number] Name: AGUSTIN GARCIA Rep #: [id number] : 1940 F 74 From: Edward Jha MD PCP: Mirella Mccracken DO Status: [facility] Study: Dexa Bone Density Study (HP) Date of Exam: 10/24/14 Exam# [id number] Ordering Dr: Mirella Mccracken DO STUDY: DUAL [...] Edward Jha MD at 10:14 EST Tel [phone], Service support [phone], CC: Mirella Mccracken DO Lead Architect: Signed Mirella Mccracken Work Phone: Start: 10-19-2014 End: 10-20-2014 Bilat Scrn Digital AND CAD Comments: See Note; NOTES: [facility] [address] [place] [address] Breast Imaging Report MR#: [id number] Acct: [id number] Name: AGUSTIN GARCIA Rep #: [id number] : 1940 F 74 From: Edward Jha MD PCP: Mirella Mccracken DO Status: REG CLI Study: Bilat Scrn Digital AND CAD Date of Exam: 10/19/14 Exam# [id number] Ordering Dr: Mirella Mccracken DO MAMMOGRAPHY - [...] Edward Jha MD at 13:38 EST Tel [phone], Service support [phone], CC: Mirella Mccracken DO Lead Architect: Signed Mirella Mccracken Work Phone: Start: 10-10-2014 [...] Brain/Head W/WO Contrast Comments: See Note; NOTES: [facility] [address] [place] [address] CAT Scan Report MR#: [id number] Acct: [id number] Name: AGUSTIN GARCIA Rep #: [id number] : 1940 F 74 From: Audie Hugo MD PCP: Mirella Mccracken DO Status: REG CLI Study: Brain/Head W/WO Contrast Date of Exam: 09/08/14 Exam# [id number] Ordering Dr: Mirella Mccracken DO STUDY: CT [...] To Hugo MD at 8:17 EST Tel [phone], Service support [phone], CC: Mirella Mccracken DO Lead Architect: Signed Mirella Mccracken Work Phone: Start: 07-27-2014 End: 07-27-2014 History and Physical Exam Comments: See Note; NOTES: [facility] Records Department [address] [place] [address] History and Physical 07/27/14 0753 MR#: [id number] Acct: [id number] Name: AGUSTIN GARCIA Rep #: [id number] : 1940 74 From: Nella Howard PCP: Mirella Mccracken DO Status: PRE [facility] [place] [facility] [place] DATE OF SERVICE: 07/28/2014 PREOPERATIVE DIAGNOSIS: Painful [...] scheduled to undergo outpatient surgical intervention at [facility] on July 28, 2014. Pedal pulses are easily palpable bilaterally and consent was reviewed, signed and placed in chart. Nella Howard DPM T: NTS JOB: [id number] 07/27/14 1156 <Electronically signed by Nella Howard > Date: Time: Nella Howard CC: Mirella Mccracken DO; Nella Howard DPM Date Dictated: 07/27/14752 Date Transcribed: 07/27/14752 Lead Architect: Signed ____ I have re-examined the patient. [...] Chest W/WO Contrast Comments: See Note; NOTES: [facility] [address] [place] [address] CAT Scan Report MR#: [id number] Acct: [id number] Name: AGUSTIN GARCIA Rep #: [id number] : 1940 F 73 From: Edward Jha MD PCP: Status: REG CLI Study: CTA Chest W/WO Contrast Date of Exam: 12/22/13 Exam# [id number] Ordering Dr: Mirella Mccracken DO STUDY: CTA [...] at 13:14 EDT Tel , Service support [phone], CC: Mirella Mccracken DO Lead Architect: Signed Mirella Mccracken Work Phone: Start: 12-13-2013 [...] Brain/Head w/wo Contrast Comments: See Note; NOTES: [facility] [address] [place] [address] CAT Scan Report MR#: [id number] Acct: [id number] Name: AGUSTIN GARCIA Rep #: [id number] : 1940 F 73 From: Audie Hugo MD PCP: Status: REG CLI Study: Brain/Head w/wo Contrast Date of Exam: 06/20/13 Exam# [id number] Ordering Dr: Stephenie Burkett MD STUDY: CT [...] June 20, 2013 at 3:17:31 PM EDT [phone] Electronically Signed BW/BW If you are the referring physician and would like to consult with the radiologist who provided this interpretation, please contact To Hugo M.D. at [phone]. If this radiologist is unavailable, you will be directed to another radiologist to assist. If you are a patient with a question regarding this report, please contact your referring physician directly. Professional Interpretation Provided By: [employer], Phone , These documents contain legally protected [...] of these documents. CC: Stephenie Burkett MD Lead Architect: Signed Stephenie Burkett Work Phone: Start: 05-04-2013 [...] Alyson richter Comment on above: with surgery [id number] Kidney Problems Alyson richter Comment on above: with surgery [id number] Kidney Problems Alyson richter Comment on above: with surgery [id number] Ligation of fallopia n tube Alyson Dixon [...] Dr. 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 Anita Dixon Tonsillectomy Alyson sevilla Comment on above: 1944 Tonsillectomy Alyson sevilla Comment on above: 1944 Tonsillectomy Alyson sevilla Comment on above: [address] Cl sevilla Work Phone: Plan of Treatment Date Care Activity Detail Author Start: 05-05-2019 Basic metabolic panel calcium total Metabolic Panel, Basic (72577) [facility] Work Phone: Start: 01-21-2018 Provider Instructions for Treatment [facility] Work Phone: Start: 11-24-2017 End: 11-24-2017 Appointment Appointment [facility] Work Phone: Start: 11-09-2017 Provider [...] Phone: Start: 06-05-2017 End: 06-05-2017 MMM MMM [facility] Work Phone: Start: 05-07-2017 Provider Instructions for Treatment [facility] Work Phone: Start: 05-07-2017 Urnls dip stick/tablet reagent auto microscopy URINALYSIS, W/ MICRO (01349) [facility] Work Phone: Start: 05-07-2017 Urine albumin quantitative MICROALBUMIN: CREATININE RATIO (57994) AND (63026) [facility] Work Phone: Start: 12-25-2016 [...] Phone: Start: 07-02-2016 Lipid panel Lipid Panel (21464) [facility] Work Phone: Start: 06-25-2016 Provider Instructions for Treatment [facility] Work Phone: Start: 05-12-2016 End: 05-11-2015 *Hepatic Function Panel *Hepatic Function Panel [facility] Work Phone: Start: 05-12-2016 End: 05-11-2015 Lipid panel [AGGREGATE] *Lipid Profile CC PCP [facility] Work Phone: Start: 05-07-2016 End: 05-07-2016 Follow Up Appt 6 months Follow Up Appt 6 months [facility] Work Phone: Start: 05-07-2016 End: 05-07-2016 MMM MMM [facility] Work Phone: Start: 01-04-2016 Patient Education Instructions for the Patient Before and After Surgery *: instructions [facility] Work Phone: Start: 01-04-2016 Provider Instructions for Treatment [facility] Work Phone: Start: 11-29-2015 Provider Instructions for Treatment [facility] Work Phone: Start: 11-05-2015 End: 11-05-2015 Carotid duplex Carotid duplex [facility] Work Phone: Start: 11-05-2015 End: 11-05-2015 Follow Up Appt 6 months Follow Up Appt 6 months [facility] Work Phone: Start: 11-05-2015 End: 11-05-2015 Follow Up Appt Other Follow Up Appt Other [facility] Work Phone: Start: 11-05-2015 End: 11-05-2015 PFM PFM [facility] Work Phone: Start: 10-24-2015 Provider Instructions for Treatment [facility] Work Phone: Start: 10-24-2015 Blood occult fecal hgb deter ia qual feces 1-3 FECAL OCCULT- Tubes sent home (21256) [facility] Work Phone: Start: 07-26-2015 Patient Education Anxiety: emotional health [facility] Work Phone: Start: 07-26-2015 Provider Instructions for Treatment [facility] Work Phone: Start: 07-26-2015 25 hydroxy includes fractions if performed CALCIFIDIOL (48064) VIT D 25 [facility] Work Phone: Start: 07-26-2015 Urnls dip stick/tablet reagent auto microscopy URINALYSIS, W/ MICRO (99689) [facility] Work Phone: Start: 07-26-2015 Urine albumin quantitative MICROALBUMIN: CREATININE RATIO (54355) AND (35605) [facility] Work Phone: Start: 07-26-2015 Comprehensive metabolic panel METABOLIC PANEL, COMPREHENSIVE (83666) [facility] Work Phone: Start: 07-26-2015 Blood count complete auto&auto difrntl wbc CBC W/AUTO DIFF WBC (17717) [facility] Work Phone: Start: 07-26-2015 Thyrotropin Qn TSH (11720) [facility] Work Phone: Start: 07-26-2015 Lipid panel LIPID PANEL (38577) [facility] Work Phone: Start: 05-09-2015 End: 05-09-2015 Follow Up Appt 6 months Follow Up Appt 6 months [facility] Work Phone: Start: 05-09-2015 End: 10-23-2016 Follow Up Appt Other Follow Up Appt Other [facility] Work Phone: Start: 05-09-2015 End: 05-09-2015 MMM MMM [facility] Work Phone: Start: 04-26-2015 Culture bct isol&prsmptv id isolate ea urine URINE IBRAHIMA CULTURE-IDENTIFICATN (69356) [facility] Work Phone: Start: 04-19-2015 Procedure Education Eprescribed prescriptions (G8553) [facility] Work Phone: Start: 04-19-2015 Provider Instructions for Treatment [facility] Work Phone: Start: 04-19-2015 Cobalamin (Vitamin B12) mass conc VITAMIN B-12 (CYANOCOBALAMIN) (44855) [facility] Work Phone: Start: 04-19-2015 Urnls dip stick/tablet rgnt auto w/o microscopy URINALYSIS W/O MICRO (26946) [facility] Work Phone: Start: 04-19-2015 Thyrotropin Qn TSH (54141) [facility] Work Phone: Start: 04-19-2015 Urine albumin quantitative MICROALBUMIN: CREATININE RATIO (78425) AND (49702) [facility] Work Phone: Start: 04-19-2015 Comprehensive metabolic panel METABOLIC PANEL, COMPREHENSIVE (98887) [facility] Work Phone: Start: 04-19-2015 Blood count complete auto&auto difrntl wbc CBC W/AUTO DIFF WBC (78657) [facility] Work Phone: Start: 04-19-2015 Lipid panel LIPID PANEL (54270) [facility] Work Phone: Start: 04-19-2015 25 hydroxy includes fractions if performed CALCIFIDIOL (98363) VIT D 25 [facility] Work Phone: Start: 01-11-2015 Provider Instructions for Treatment [facility] Work Phone: Start: 01-11-2015 25 hydroxy includes fractions if performed Vitamin D Hydroxy (31606) [facility] Work Phone: Start: 01-11-2015 Lipid panel LIPID PANEL (83440) [facility] Work Phone: Start: 01-11-2015 Thyrotropin Qn TSH (28439) [facility] Work Phone: Start: 01-11-2015 Urnls dip stick/tablet reagent auto microscopy URINALYSIS, W/ MICRO (24972) [facility] Work Phone: Start: 01-11-2015 Urine albumin quantitative MICROALBUMIN: CREATININE RATIO (99194) AND (12486) [facility] Work Phone: Start: 01-11-2015 Comprehensive metabolic panel METABOLIC PANEL, COMPREHENSIVE (16165) [facility] Work Phone: Start: 01-11-2015 Blood count complete auto&auto difrntl wbc CBC W/AUTO DIFF WBC (81044) [facility] Work Phone: Start: 10-31-2014 Provider Instructions for Treatment *Calcium Education (KF) [facility] Work Phone: Start: 10-12-2014 Provider Instructions for Treatment [facility] Work Phone: Start: 10-10-2014 End: 10-10-2014 Electrocardiogram, complete EKG (In office) [facility] Work Phone: Start: 10-10-2014 End: 10-10-2014 Follow Up Appt 6 months Follow Up Appt 6 months [facility] Work Phone: Start: 10-10-2014 End: 10-23-2016 Follow Up Appt Other Follow Up Appt Other [facility] Work Phone: Start: 10-10-2014 End: 10-10-2014 PFM PFM [facility] Work Phone: Start: 10-09-2014 25 hydroxy includes fractions if performed Vitamin D Hydroxy (81488) [facility] Work Phone: Start: 08-31-2014 [...] 6 months Follow Up Appt 6 months [facility] Work Phone: Start: 04-10-2014 End: 04-10-2014 Follow Up BP Check Follow Up BP Check [facility] Work Phone: Start: 04-10-2014 End: 04-10-2014 MMM MMM [facility] Work Phone: Start: 04-06-2014 Procedure Education Eprescribed prescriptions (G8553) [facility] Work Phone: Start: 04-06-2014 Provider Instructions for Treatment [facility] Work Phone: Start: 04-06-2014 Prothrombin time (PT) Coag time (PPP) PT (Prothrobim Time) (01209) [facility] Work Phone: Comment on [...] 4 months Follow Up Appt 4 months [facility] Work Phone: Start: 08-08-2013 End: 08-08-2013 Follow Up Appt Other Follow Up Appt Other [facility] Work Phone: Start: 08-08-2013 End: 08-08-2013 MMM MMM [facility] Work Phone: Start: 08-08-2013 End: 08-08-2013 PFM PFM [facility] Work Phone: Start: 08-01-2013 Provider Instructions for Treatment [facility] Work Phone: Start: 07-04-2013 Provider Instructions for Treatment [facility] Work Phone: Start: 06-27-2013 Provider Instructions for Treatment [facility] Work Phone: Start: 06-20-2013 Blood count complete auto&auto difrntl wbc CBC, PLATELETS & AUT DIFF (31920) [facility] Work Phone: Start: 06-20-2013 CRP mass conc C-Reactive Protein (70818) [facility] Work Phone: Start: 06-20-2013 Sedimentation rate rbc non-automated Sed Rate Erythrocyte (25873) [facility] Work Phone: Start: 06-20-2013 Creatinine mass conc CREATININE BLOOD (18160) [facility] Work Phone: Start: 06-08-2013 Patient Education Flu (Influenza) *: flu shot [facility] Work Phone: Start: 05-20-2013 Provider Instructions for Treatment Reviewed Diagnostic Tests [facility] Work Phone: Start: 05-04-2013 End: 07-07-2013 *BMP *BMP [facility] Work Phone: Start: 04-27-2013 End: 04-27-2013 Pulmonary Fuction Test - complete Pulmonary Fuction Test - complete [facility] Work Phone: Start: 04-22-2013 Provider Instructions for Treatment Reviewed Diagnostic Tests [facility] Work Phone: Start: 04-19-2013 End: 04-20-2013 *BMP *BMP [facility] Work Phone: Start: 04-19-2013 End: 04-20-2013 aPTT *PTT-Partial Thromboplastin Time [facility] Work Phone: Start: 04-19-2013 End: 04-20-2013 CBC W Auto Differential panel - Blood *CBC without Diff [facility] Work Phone: Start: 04-19-2013 End: 04-20-2013 Chest x-ray X-Ray, Chest, PA & Lateral [facility] Work Phone: Start: 04-19-2013 End: 04-20-2013 Coagulation factor induced.INR assay in platelet poor plasma *PT/INR [facility] Work Phone: Start: 04-19-2013 End: 04-19-2013 Electrocardiogram, complete EKG (In office) [facility] Work Phone: Start: 04-19-2013 End: 04-19-2013 Follow Up Appt Other Follow Up Appt Other [facility] Work Phone: Start: 04-18-2013 End: 04-18-2013 Left & Right Heart Cath W/Grafts Left & Right Heart Cath W/Grafts [facility] Work Phone: Start: 04-15-2013 Patient Education Water in diet, brief version [facility] Work Phone: Start: 04-15-2013 Provider Instructions for Treatment [facility] Work Phone: Start: 03-15-2013 End: 03-09-2013 Echocardiography Echocardiogram (complete) [facility] Work Phone: Start: 02-28-2013 Provider Instructions for Treatment [facility] Work Phone: Start: 02-10-2013 End: 02-10-2013 Arterial exam Arterial exam [facility] Work Phone: Start: 02-10-2013 End: 02-10-2013 Electrocardiogram, complete EKG (In office) [facility] Work Phone: Start: 02-10-2013 End: 02-10-2013 Flecainide [Mass/volume] in Serum or Plasma *FLEC Flecainide (Tambocor) 13363 [facility] Work Phone: Start: 02-10-2013 End: 02-10-2013 Follow Up Appt 6 months Follow Up Appt 6 months [facility] Work Phone: Start: 02-10-2013 End: 08-08-2013 Lipid panel [AGGREGATE] *Lipid Profile CC PCP [facility] Work Phone: Start: 02-10-2013 End: 02-10-2013 MMM MMM [facility] Work Phone: Start: 11-15-2012 Provider Instructions for [...] urine URINE IBRAHIMA CULTURE (TY COL COUNT) (05732) [facility] Work Phone: Start: 09-16-2012 Provider Instructions for Treatment Follow up in 1 month [facility] Work Phone: Start: 07-08-2012 End: 04-18-2013 *Hepatic Function Panel *Hepatic Function Panel [facility] Work Phone: Start: 07-08-2012 End: 07-09-2012 Electrocardiogram, complete EKG (In office) [facility] Work Phone: Start: 07-08-2012 End: 07-09-2012 Follow Up Appt 6 months Follow Up Appt 6 months [facility] Work Phone: Start: 07-08-2012 End: 04-18-2013 Lipid panel [AGGREGATE] *Lipid Profile [facility] Work Phone: Start: 04-12-2012 [...] 04-18-2013 *Hepatic Function Panel *Hepatic Function Panel [facility] Work Phone: Start: 01-06-2012 End: 01-06-2012 24 hour holter monitor 24 hour holter monitor [facility] Work Phone: Start: 01-06-2012 End: 01-06-2012 Electrocardiogram, complete EKG (In office) [facility] Work Phone: Start: 01-06-2012 End: 01-06-2012 Follow Up Appt 3 months Follow Up Appt 3 months [facility] Work Phone: Start: 01-06-2012 End: 01-06-2012 Follow Up Appt Other Follow Up Appt Other [facility] Work Phone: Start: 01-06-2012 End: 04-18-2013 Lipid panel [AGGREGATE] *Lipid Profile [facility] Work Phone: Start: 12-31-2011 Provider Instructions for Treatment [facility] Work Phone: Start: 12-24-2011 Fibrin dgradj products d-dimer quantitative D-Dimer (33358) [facility] Work Phone: Start: 12-24-2011 Blood count complete automated CBC (AUTO) (35384) [facility] Work Phone: Start: 12-03-2011 Culture bacterial quanttative colony count urine URINE IBRAHIMA CULTURE-TY COL COUNT (66643) [facility] Work Phone: Start: 11-26-2011 Provider Instructions for Treatment [facility] Work Phone: Start: 11-06-2011 Provider Instructions for Treatment Reviewed Diagnostic Tests [facility] Work Phone: Start: 11-04-2011 Renal function panel Renal function Panel (95343) [facility] Work Phone: Start: 10-22-2011 CRP mass conc C-Reactive Protein (04091) [facility] Work Phone: Start: 10-21-2011 Renal function panel Renal function Panel (60204) [facility] Work Phone: Start: 10-21-2011 Provider Instructions for Treatment Follow up in 2 weeks [facility] Work Phone: Start: 10-21-2011 Fibrin dgradj products d-dimer quantitative D-Dimer (06050) [facility] Work Phone: Start: 10-21-2011 Troponin I.cardiac mass conc Troponin I (03803) [facility] Work Phone: Start: 10-21-2011 Creatine kinase mb fraction only CPK MB FRACTION (92441) [facility] Work Phone: Start: 10-21-2011 Creatine kinase total CREATINE KINASE TOTAL (02950) [facility] Work Phone: Start: 10-21-2011 CRP mass conc C-Reactive Protein (93148) [facility] Work Phone: Start: 06-17-2010 Provider Instructions for Treatment [facility] Work Phone: Start: 12-13-2009 Provider Instructions for Treatment [facility] Work Phone: Start: 01-17-2009 Provider Instructions for Treatment [facility] Work Phone: Start: 01-12-2009 Provider Instructions for Treatment *ERGOCALCIFEROL DOSAGE PER SHEWMON [facility] Work Phone: Start: 01-12-2009 Nuclear Ab IF titer (S) CORTES (ANTINUCLEAR ANTIBODY) (86923) [facility] Work Phone: Start: 01-12-2009 Rheumatoid factor quantitative RHEUMATOID FACTOR-QUANT (62296) [facility] Work Phone: Start: 01-12-2009 25 hydroxy includes fractions if performed Vitamin D Hydroxy (15422) [facility] Work Phone: Comment on above: do in 3-4 months Start: 01-02-2009 Provider Instructions for Treatment [facility] Work Phone: Start: 01-02-2009 25 hydroxy includes fractions if performed Vitamin D Hydroxy (83285) [facility] Work Phone: Start: 01-02-2009 1 25 dihydroxy includes fractions if performed VITAMIN D, 1, 25-DIHYDROXY (51547) [facility] Work Phone: Start: 01-02-2009 Thyrotropin Qn TSH (98846) [facility] Work Phone: Start: 01-02-2009 Protein electrophoretic fractj&quantj serum [facility] Work Phone: Start: 01-02-2009 Sedimentation rate rbc non-automated SED RATE ERYTHROCYTE (57740) [facility] Work Phone: Start: 01-02-2009 Phosphate mass conc PHOSPHORUS (70849) [facility] Work Phone: Start: 01-02-2009 Assay of parathormone PARATHORMONE (74371) [facility] Work Phone: Start: 01-02-2009 Hepatic function panel HEPATIC FUNCTION PANEL (01613) [facility] Work Phone: Start: 01-02-2009 Blood count complete automated CBC (AUTO) ([id number]) [facility] Work Phone: Start: 01-02-2009 Calcium mass conc CALCIUM SERUM ([id number]) [facility] Work Phone: Start: 01-02-2009 CRP mass conc C-REACTIVE PROTEIN ([id number]) [facility] Work Phone: Start: 01-02-2009 ALP enzyme act/vol ALKALINE PHOSPHATASE ([id number]) [facility] Work Phone: Start: 10-04-2008 Provider Instructions for Treatment [facility] Work Phone: Start: 10-04-2008 Lipid panel LIPID PANEL ([id number]) [facility] Work Phone: Start: 09-21-2008 Patient Education Water in diet, brief version [facility] Work Phone: Start: 09-21-2008 Provider Instructions for Treatment [facility] Work Phone: Start: 08-24-2008 Provider Instructions for Treatment [facility] Work Phone: Start: 06-28-2008 Provider Instructions for Treatment [facility] Work Phone: Patient Education HYPERLIPIDEMIA [facility] Work Phone: [facility] [...] Immunizations Immunization Date Immunization Notes Care Provider [facility] 06-13-2009 influenza, seasonal, injectable Mirella Nicole [facility] Work Phone: Comment on above: Lot #[id number]-left deltoidgiven by:[facility] 06-28-2008 influenza, seasonal, injectable Mirella Nicole [facility] Work Phone: Comment on above: done km 0.5cc given im ;lt arm lot [id number] exp 02-20 Payers Date Payer Category Payer Unknown [id number] 2024 Self-pay [id number] 2024 Unknown [id number] 2016 Unknown [id number] 2004 Medicare [id number] Medicare MEDICARE PART A B [id number] Private Health Insurance [id number] Unknown Unknown [id number] 2.16.840.1.667656.3.579.2.462 Unknown [id number] 2.16.840.1.652128.3.579.2.462 Unknown [id number] 2.16.840.1.785881.3.579.2.462 Unknown [id number] 2.16.840.1.074867.3.579.2.462 Unknown [id number] 2.16.840.1.853468.3.579.2.462 Unknown [id number] 2.16.840.1.914646.3.579.2.462 Unknown [id number] 2.16.840.1.655231.3.579.2.462 Unknown [id number] 2.840.1.040092.3.579.2.462 Unknown [id number] 2.840.1.792226.3.579.2.462 Unknown [id number] 2.840.1.763158.3.579.2.462 Unknown [id number] 2.16.840.1.220514.3.579.2.462 Unknown [id number] 2.16.840.1.953780.3.579.2.462 Unknown [id number] 2.16.840.1.963024.3.579.2.462 Unknown [id number] 2.16.840.1.214296.3.579.2.462 Unknown [id number] 2.16.840.1.520836.3.579.2.462 Unknown [id number] 2.16.840.1.332636.3.579.2.462 Unknown [id number] 2.16.840.1.197572.3.579.2.462 Unknown [id number] 2.16840.1.865256.3.579.2.462 Unknown [id number] 2.16.840.1.715736.3.579.2.462 Unknown [id number] 2.16.840.1.412186.3.579.2.462 Unknown [id number] 2.16.840.1.607240.3.579.2.462 Unknown [id number] 2.16.840.1.102441.3.579.2.462 Unknown [id number] 2.16.840.1.088236.3.579.2.462 Unknown [id number] 2.16.840.1.554208.3.579.2.462 Unknown [id number] 2.16.840.1.529785.3.579.2.462 Unknown [id number] 2.16.840.1.886883.3.579.2.462 Unknown [id number] 2.16.840.1.569244.3.579.2.462 Unknown [id number] 2.16.840.1.280476.3.579.2.462 Unknown [id number] 2.16.840.1.489176.3.579.2.462 Social History Date Type Detail Facility Caffeine Use Never smoker [facility] Work Phone: Comment on above: 2 per week 3-4 miles QD walking , heterosexua l, celibate Retired Tobacco use: Never smoker. [facility] Work Phone: Start: 09-30-2021 End: 07-09-2023 Tobacco smoking status WAIS Unknown if ever smoked [facility] Start: 06-12-2021 None [facility] Start: 06-12-2021 Homeless [facility] Start: 06-12-2021 Non-smoker [facility] Start: 1940 Sex Assigned At Female W [facility] Start: 02-07-2024 Tobacco smoking status NHIS Never smoked tobacco (finding) [facility] Start: 12-14-2024 End: 01-04-2025 Sex Female (finding) [facility] Medical Equipment Procedure Code Equipment Code Equipment [...] Facility Evaluation note No assessment information availa [facility] Work Phone: Evaluation note Note Date & Type Note Facility Evaluation note Diagnosis Onset Date Pes anserinus bursitis of left knee noneactive Osteoarthritis of left knee noneactive [facility] Work Phone: Evaluation note Note Date & Type Note Facility Evaluation note Diagnosis Onset Date Pes anserinus bursitis of left knee noneactive Osteoarthritis of left knee noneactive Pes anserinus bursitis of left knee noneactive Osteoarthritis of left knee noneactive [facility] Work Phone: Evaluation note Note Date & Type Note Facility Evaluation note Diagnosis Onset Date Osteoarthritis of left knee noneactive Osteoarthritis of left knee noneactive Osteoarthritis of left knee noneactive Osteoarthritis of left knee noneactive [facility] Work Phone: Reason for referral (narrative) Note Date & Type Note Facility Reason for referral (narrative) No reason for referral information available [facility] Work Phone: Family History No Family History [...] Dates Details How to access health informa iDoneThison online Indication:BMI 29.0-29.9,adult Start:21-Jan-2018 Instruction Type:Patient Education [...] Start:19-Apr-2015 Instruction Type:Patient Education How to access Tradeshifta iWeebo online - Detail Indication:Hyperlipidemia Start:19-Apr-2015 Instruction Type:Patient Education Patient Instructions Indication:Hyperlipidemia Start:19-Apr-2015 Instruction Type:Provider Instructions for Treatment cardiovascular counseling Indication:Coronary artery disease Start:12-Oct-2014 Instruction Type:Provider Instructions for Treatment Patient Instructions Indication:Headache Start:12-Oct-2014 Instruction Type:Provider Instructions for Treatment Patient Instructions Indication:Headache Start:31-Aug-2014 Instruction Type:Provider Instructions for Treatment How to access Tradeshifta iWeebo online Indication:Coronary artery disease Start:13-Jul-2014 Instruction Type:Patient Education How to access health informa Bug Music - Detail Indication:Coronary artery disease Start:13-Jul-2014 Instruction Type:Patient Education Patient Instructions Indication:Coronary artery disease Start:13-Jul-2014 Instruction Type:Provider Instructions for Treatment Patient Instructions Indication:SYMPTOMS INVOLVING URINARY SYSTEM; DYSURIA Start:17-Apr-2014 Instruction Type:Provider Instructions for Treatment How to access Filtec Indication:Coronary artery disease Start:06-Apr-2014 Instruction Type:Patient Education How to access Filtec - Detail Indication:Coronary artery disease Start:06-Apr-2014 Instruction [...] for Treatment How to access health informa iDoneThison online Indication:Coronary artery disease Start:13-Jul-2014 Instruction Type:Patient Education How to access health informa tion online - Detail Indication:Coronary artery disease Start:13-Jul-2014 Instruction Type:Patient Education Patient Instructions Indication:Coronary artery disease Start:13-Jul-2014 Instruction Type:Provider Instructions for Treatment Patient Instructions Indication:SYMPTOMS INVOLVING URINARY SYSTEM; DYSURIA Start:17-Apr-2014 Instruction Type:Provider Instructions for Treatment How to access Tradeshifta Bug Music Indication:Coronary artery disease Start:06-Apr-2014 Instruction Type:Patient Education [...] Type:Provider Instructions for Treatment How to access Tradeshifta iDoneThison online Indication:Hyperlipidemia Start:19-Apr-2015 Instruction Type:Patient Education How to access health informa tion online - Detail Indication:Hyperlipidemia Start:19-Apr-2015 Instruction Type:Patient Education Patient Instructions Indication:Hyperlipidemia Start:19-Apr-2015 Instruction Type:Provider Instructions for Treatment cardiovascular counseling Indication:Coronary artery disease Start:12-Oct-2014 Instruction Type:Provider Instructions for Treatment Patient Instructions Indication:Headache Start:12-Oct-2014 Instruction Type:Provider Instructions for Treatment Patient Instructions Indication:Headache Start:31-Aug-2014 Instruction Type:Provider Instructions for Treatment How to access MySalescamp informa iDoneThison online Indication:Coronary artery disease Start:13-Jul-2014 Instruction Type:Patient Education How to access health informa tion Wesabe - Detail Indication:Coronary artery disease Start:13-Jul-2014 Instruction Type:Patient Education Patient Instructions Indication:Coronary artery disease Start:13-Jul-2014 Instruction Type:Provider Instructions for Treatment Patient Instructions Indication:SYMPTOMS INVOLVING URINARY SYSTEM; DYSURIA Start:17-Apr-2014 Instruction Type:Provider Instructions for Treatment How to access Tradeshifta Bug Music Indication:Coronary artery disease Start:06-Apr-2014 Instruction Type:Patient Education How to access My[employer]camp informa tion online - Detail Indication:Coronary artery [...] Type:Provider Instructions for Treatment How to access Happy Cloud online Indication:Coronary artery disease Start:06-Apr-2014 Instruction Type:Patient Education How to access Tradeshifta iWeebo online - Detail Indication:Coronary artery disease Start:06-Apr-2014 [...] Name Dates Details How to access health Luxul Wireless[employer] Bug Music Indication:Nonsmoker Start:15-Mar-2019 Instruction Type:Patient Education How to access health informa iDoneThison online - Detail Indication:Nonsmoker Start:15-Mar-2019 Instruction Type:Patient Education Patient Instructions Indication:Nonsmoker Start:15-Mar-2019 Instruction Type:Provider Instructions for Treatment How to access health [employer] iWeebo online Indication:BMI 29.0-29.9,adult Start:21-Jan-2018 Instruction Type:Patient Education [...] Yes May 27, 2019 6:37pm Power of [employer] Yes May 6:37pm Advance Directive Response Recorded Date/ Time Advance Directives Yes May 2:39pm Living Will Yes June 04, 2022 2:39pm Power of [employer] Yes May 2:39pm Advance Directive Response Recorded Date/ Time Advance Directives Yes July 9:15am Living Will Yes August 01 9:15am Power of [employer] Yes August 01, 2022 9:15am Advance Directive Response Recorded Date/ Time Advance Directives Yes July 10:15am Living Will Yes August 01 10:15am Power of [employer] Yes August 01, 2022 10:15am Advance Directive Response Recorded Date/ Time Advance Directives Yes July 09, 2023 8:23am Living Will Yes July 09 8:23am Power of [employer] Yes July 09, 2023 8:23am Advance Directive Response Recorded Date/ Time Advance Directives Yes July 09, 2023 9:23am Living Will Yes July 09 9:23am Power of [employer] Yes July 09, 2023 9:23am Advance Directive Response Recorded Date/ Time Advance Directives Yes July 09, 2023 9:23am Chief Complaint and Reason for Visit Chief Complaint Right hip xray [facility] MONTHLY EXAM Chief Complaint [facility] MONTHLY EXAM Chief Complaint [facility] NEW SYMPTOMS/CONCERN LABWORK MONTHLY EXAM Chief Complaint MONTHLY EXAM MONTH EXAM [facility] LAB WORK LEFT KNEE Rm 5 xray Reason for Visit Pes anserinus bursit is of left knee Osteoarthritis of left knee Chief Complaint [facility] LAB WOR K LEFT KNEE Rm 5 xray NEW CONCERN/PROBLEM LEFT KNEE room 1 MONTHLY EXAM [facility] LABWORK MONTHLY Reason for Visit Pes anserinus bursit is of left knee Osteoarthritis of left knee Pes anserinus bursitis of left knee Osteoarthritis of left knee Chief Complaint NEW CONCERN/PROBLEM LEFT KNEE room 1 MONTHLY EXAM [facility] MONTHLY MONTHLY EXAM NEW PROBLEM [facility] Reason for Visit Pes anserinus bursit is of left knee Osteoarthritis of left knee Chief Complaint [facility] MONTHLY EXAM [facility] MONTHLY EXAM NEW CONCERN left knee Reason for Visit Pes anserinus bursit is of left knee Osteoarthritis of left knee Chief Complaint LEFT KNEE RM 5 LABWORK LEFT KNEE LEFT KNEE LEFT KNEE MONTHLY VISIT MONTHLY EXAM [facility] LAB WORK Reason for Visit Osteoarthritis of le ft knee Osteoarthritis of left knee Osteoarthritis of left knee Osteoarthritis of left knee Chief Complaint [facility] LAB WOR K MONTHLY EXAM - MD MONTHLY EXAM [facility] LAB WORK Chief Complaint MONTHLY EXAM MONTHLY EXAM MD [facility] MONTHLY EXAM MONTHLY EXAM MD Chief Complaint Admit Date LABWORK August 16, 2024 5 :00am [facility] LAB WORK September 16, 2024 5:00am MONTHLY EXAM September 20, 2024 7: 33pm LABWORK October 14, 2024 1 :00am [facility] LAB WORK October 17, 2024 5:00am MONTHLY EXAM October 27, 2024 11:58am LABWORK November 14, 2024 5:00 am Chief Complaint Admit Date [facility] LAB WORK September 16, 2024 5:00am MONTHLY EXAM September 20, 2024 7: 33pm LABWORK October 14, 2024 1 :00am [facility] LAB WORK October 17, 2024 5:00am MONTHLY EXAM October 27, 2024 11:58am LABWORK November 14, 2024 5:00 am MONTHLY EXAM November 15, 2024 5:36 pm LABWORK December 14, 2024 5:00 am Chief Complaint Admit Date LABWORK October 14, 2024 1 :00am [facility] LAB WORK October 17, 2024 5:00am MONTHLY EXAM October 27, 2024 11:58am LABWORK November 14, 2024 5:00 am MONTHLY EXAM November 15, 2024 5:36 pm LABWORK December 14, 2024 5:00 am LABWORK January 14, 2025 8:25am Chief Complaint Admit Date LABWORK October 14, 2024 1 :00am [facility] LAB WORK October 17, 2024 5:00am MONTHLY EXAM October 27, 2024 11:58am LABWORK November 14, 2024 5:00 am MONTHLY EXAM November 15, 2024 5:36 pm LABWORK December 14, 2024 5:00 am [facility] LAB WORK January 12, 2025 5:00 am LABWORK January 14, 2025 8:25am LABWORK January 18, 2025 5:00am Additional Source Comments INFORMATION SOURCE (unrecogn ized section and content) DATE CREATED AUTHOR 10/03/2019 [facility] ([place]) DATE CREATED AUTHOR AUTHOR'S ORGANIZ ATION 02/26/2025 [facility] Goals (unrecognized section and content) Goals [...] MD Primary Care Provider Active Zeina Balbuena DRYERMAN/WOMAN, DRYERMAN/WOMAN-C Attending Provider Active Team Status: Inactive Member [...] Cl Tsang MD Primary Care Provider Active TRUDY Blnaco Attending Provider Active Team Status: Inactive Member [...] BE BASED ON THE PRIMARY CLINICAL RECORDS. [employer] provides no warranty or guarantee of the accuracy or completeness of information in this document.
[2025-02-27 09:01] LABS: Valproic Acid (Depakene) Level 15 ug/mL (50-100)
== END ==
LOC: OLS.WHLCAR 05:00
PROVIDERS: PCP Internal Medicine; Visit Provider Internal Medicine
DX: I10 Essential (primary) hypertension (principal); I25.10 Atherosclerotic heart disease of native coronary artery without angina pectoris; F02.811 Dementia in other diseases classified elsewhere, unspecified severity, with agitation; G30.9 Alzheimer's disease, unspecified
CPT/HCPCS: 36415; 80164

== ENCOUNTER → 2025-03-06 15:47 | Outpatient (REF) | payer MEDICARE, MEDICAID, SELFPAY ==
[2025-03-06 15:53] LABS: Color, Urine Yellow (Yellow); Glucose, Dipstick Normal (Normal); Ketone-Dipstick 5 mg/dl (Negative); Leukocyte Esterase-Dipstick 500 /ul (Negative); Nitrite-Dipstick Negative (Negative); Occult Blood-Urine 150 /ul (Negative); Protein-Dipstick 100 mg/dl (Negative); Urine Bilirubin Dipstick Negative (Negative); Urine Clarity Turbid (Clear); Urine Urobilinogen Normal (Normal)
== END ==
LOC: OLS.WHLCAR 15:47
PROVIDERS: PCP Internal Medicine; Visit Provider Internal Medicine
DX: N39.0 Urinary tract infection, site not specified (principal)
CPT/HCPCS: 81002; 87077; 87086; 87088; 87186

== ENCOUNTER → 2025-03-14 | Outpatient (REF) | payer MEDICARE, MEDICAID, SELFPAY ==
--- OUTSIDE RECORDS SUMMARY | 2025-03-14 05:01 | XMS RPT_ITS ---
[...] Yes May 27, 2019 6:37pm Power of Farm Management Professor Yes May 6:37pm Advance Directive Response Recorded Date/ Time Advance Directives Yes May 2:39pm Living Will Yes June 04, 2022 2:39pm Power of Farm Management Professor Yes May 2:39pm Advance Directive Response Recorded Date/ Time Advance Directives Yes July 9:15am Living Will Yes August 01 9:15am Power of Farm Management Professor Yes August 01, 2022 9:15am Advance Directive Response Recorded Date/ Time Advance Directives Yes July 10:15am Living Will Yes August 01 10:15am Power of Farm Management Professor Yes August 01, 2022 10:15am Advance Directive Response Recorded Date/ Time Advance Directives Yes July 09, 2023 8:23am Living Will Yes July 09 8:23am Power of Farm Management Professor Yes July 09, 2023 8:23am Advance Directive Response Recorded Date/ Time Advance Directives Yes July 09, 2023 9:23am Living Will Yes July 09 9:23am Power of Farm Management Professor Yes July 09, 2023 9:23am Advance Directive Response Recorded Date/ Time Advance Directives Yes July 09, 2023 9:23am Advance Directive Response Recorded Date/ Time Advance Directives Yes March 02 6:29pm Chief Complaint and Reason for Visit Chief Complaint Right hip xray [facility] MONTHLY EXAM Chief Complaint [facility] MONTHLY EXAM Chief Complaint [facility] NEW SYMPTOMS/CONCERN LABWORK MONTHLY EXAM Chief Complaint MONTHLY EXAM MONTH EXAM [facility] LAB WORK LEFT KNEE Rm 5 xray Reason for Visit Pes anserinus bursit is of left knee Osteoarthritis of left knee Chief Complaint [facility] LAB WOR K LEFT KNEE Rm 5 xray NEW CONCERN/PROBLEM LEFT KNEE room 1 MONTHLY EXAM [facility] LABWORK MONTHLY Reason for Visit Pes anserinus bursit is of left knee Osteoarthritis of left knee Pes anserinus bursitis of left knee Osteoarthritis of left knee Chief Complaint NEW CONCERN/PROBLEM LEFT KNEE room 1 MONTHLY EXAM [facility] MONTHLY MONTHLY EXAM NEW PROBLEM [facility] LABWORK Reason for Visit Pes anserinus bursit is of left knee Osteoarthritis of left knee Chief Complaint [facility] MONTHLY EXAM [facility] MONTHLY EXAM NEW CONCERN left knee Reason for Visit Pes anserinus bursit is of left knee Osteoarthritis of left knee Chief Complaint LEFT KNEE RM 5 LABWORK LEFT KNEE LEFT KNEE LEFT KNEE MONTHLY VISIT MONTHLY EXAM [facility] LAB WORK Reason for Visit Osteoarthritis of le ft knee Osteoarthritis of left knee Osteoarthritis of left knee Osteoarthritis of left knee Chief Complaint [facility] LAB WOR K MONTHLY EXAM - MD MONTHLY EXAM [facility] LAB WORK Chief Complaint MONTHLY EXAM MONTHLY EXAM MD [facility] WORK MONTHLY EXAM MONTHLY EXAM MD Chief Complaint Admit Date LABWORK August 16, 2024 5 :00am [facility] WORK September 16, 2024 5:00am MONTHLY EXAM September 20, 2024 7: 33pm LABWORK October 14, 2024 1 :00am [facility] LAB WORK October 17, 2024 5:00am MONTHLY EXAM October 27, 2024 11:58am LABWORK November 14, 2024 5:00 am Chief Complaint Admit Date [facility] LAB WORK September 16, 2024 5:00am MONTHLY EXAM September 20, 2024 7: 33pm LABWORK October 14, 2024 1 :00am [facility] LAB WORK October 17, 2024 5:00am MONTHLY EXAM October 27, 2024 11:58am LABWORK November 14, 2024 5:00 am MONTHLY EXAM November 15, 2024 5:36 pm LABWORK December 14, 2024 5:00 am Chief Complaint Admit Date LABWORK October 14, 2024 1 :00am [facility] LAB WORK October 17, 2024 5:00am MONTHLY EXAM October 27, 2024 11:58am LABWORK November 14, 2024 5:00 am MONTHLY EXAM November 15, 2024 5:36 pm LABWORK December 14, 2024 5:00 am LABWORK January 14, 2025 8:25am Chief Complaint Admit Date LABWORK October 14, 2024 1 :00am [facility] LAB WORK October 17, 2024 5:00am MONTHLY EXAM October 27, 2024 11:58am LABWORK November 14, 2024 5:00 am MONTHLY EXAM November 15, 2024 5:36 pm LABWORK December 14, 2024 5:00 am [facility] LAB WORK January 12, 2025 5:00 am LABWORK January 14, 2025 8:25am LABWORK January 18, 2025 5:00am Chief Complaint Admit Date LABWORK November 14, 2024 5:00 am MONTHLY EXAM November 15, 2024 5:36 pm LABWORK December 14, 2024 5:00 am Monthly Exam December 16, 2024 5:46 pm [facility] LAB WORK January 12, 2025 5:00 am LABWORK January 14, 2025 8:25am LABWORK January 18, 2025 5:00am [facility] LAB WORK January 23, 2025 5:0 0am Additional Source Comments INFORMATION SOURCE (unrecogn ized section and content) DATE CREATED AUTHOR 10/03/2019 [facility] ([place]) DATE CREATED AUTHOR AUTHOR'S ORGANIZ ATION 03/07/2025 [facility] Goals (unrecognized section and content) Goals [...] Mccracken DO Family Provider Active Dr. Cl Dinh MD Primary Care Provider Active Team Status: Inactive Member Role Status Dates Dr. Cl Dinh MD Primary Care Provider, Referrin g Provider Active TRUDY Gary Attending Provider Active Team Status: Inactive Member Role Status Dates Dr. Cl Dinh MD Primary Care Provider Active Dr. Thom Montiel MD Attending Provider Active Team Status: Inactive Member Role Status Dates Dr. Cl Dinh MD Primary Care Provider, Referrin g Provider Active Dr. Tomas Aleman DO Attending Provider Active Team Status: Inactive Member Role Status Dates Dr. Cl Dinh MD Primary Care Provider Active Zeina Balbuena SEARCH CONSULTANT, SEARCH CONSULTANT-C Attending Provider Active Team Status: Inactive Member Role Status Dates Dr. Cl Dinh MD Primary Care Provider Active Dr. Yesika Faust MD Attending Provider Active Team Status: Inactive Member Role Status Dates Dr. Cl Dinh MD Primary Care Provider Active Yesika VICENTE MD Attending Provider Active Team Status: Inactive Member Role Status Dates Dr. Cl Dinh MD Primary Care Provider Active Cl VICENTE MD Attending Provider Active Team Status: Inactive Member Role Status Dates Dr. Cl Dinh MD Primary Care Provider Active TRUDY Blanco Attending Provider Active Team Status: Inactive Member Role Status Dates Dr. Cl Dinh MD Primary Care Provider Active Carmen Shaikh SEARCH CONSULTANT-C Attending Provider Active Team Status: Active Member [...] 14, 2024 End: November 14, 2024 Yesika VIECNTE MD Attending Provider Active Start: November 14, [...] January 18, 2025 End: January 18, 2025 Team Status: Inactive Member Role Status Dates Dr. Yesika Faust MD Primary Care Provider Active Start: December 16, 2024 End: December 16, 2024 Zeina Balbuena NP, SEARCH CONSULTANT-C Attending Provider Active Start: December 16, 2024 End: December 16, 2024 Team Status: Active Member Role Status Dates Dr. Yesika Faust MD Primary Care Provider Active Start: February 13, 2025 Yesika VICENTE MD Attending Provider Active Start: February 13, 2025 Team Status: Active Member Role Status Dates Dr. Yesika Faust MD Primary Care Provider Active Start: February 27, 2025 Yesika VICENTE MD Attending Provider Active Start: February 27, 2025 FOR RECORDS PERTAINING TO PATIENTS WHO [...] BE BASED ON THE PRIMARY CLINICAL RECORDS. [employer] provides no warranty or guarantee of the accuracy or completeness of information in this document.
--- OUTSIDE RECORDS SUMMARY | 2025-03-14 05:01 | XMS RPT_ITS ---
[...] Yes May 27, 2019 6:37pm Power of Roller Print Tender Yes May 6:37pm Advance Directive Response Recorded Date/ Time Advance Directives Yes May 2:39pm Living Will Yes June 04, 2022 2:39pm Power of Roller Print Tender Yes May 2:39pm Advance Directive Response Recorded Date/ Time Advance Directives Yes July 9:15am Living Will Yes August 01 9:15am Power of Roller Print Tender Yes August 01, 2022 9:15am Advance Directive Response Recorded Date/ Time Advance Directives Yes July 10:15am Living Will Yes August 01 10:15am Power of Roller Print Tender Yes August 01, 2022 10:15am Advance Directive Response Recorded Date/ Time Advance Directives Yes July 09, 2023 8:23am Living Will Yes July 09 8:23am Power of Roller Print Tender Yes July 09, 2023 8:23am Advance Directive Response Recorded Date/ Time Advance Directives Yes July 09, 2023 9:23am Living Will Yes July 09 9:23am Power of Roller Print Tender Yes July 09, 2023 9:23am Advance Directive Response Recorded Date/ Time Advance Directives Yes July 09, 2023 9:23am Advance Directive Response Recorded Date/ Time Advance Directives Yes March 02 6:29pm Chief Complaint and Reason for Visit Chief Complaint Right hip xray LONG-TERM LABWORK MONTHLY EXAM Chief Complaint LONG-TERM LABWORK MONTHLY EXAM Chief Complaint LONG-TERM LABWORK NEW SYMPTOMS/CONCERN LABWORK MONTHLY EXAM Chief Complaint MONTHLY EXAM MONTH EXAM LONG-TERM LAB WORK LEFT KNEE Rm 5 xray Reason for Visit Pes anserinus bursit is of left knee Osteoarthritis of left knee Chief Complaint LONG-TERM LAB WOR K LEFT KNEE Rm 5 xray NEW CONCERN/PROBLEM LEFT KNEE room 1 MONTHLY EXAM LONG-TERM LABWORK MONTHLY Reason for Visit Pes anserinus bursit is of left knee Osteoarthritis of left knee Pes anserinus bursitis of left knee Osteoarthritis of left knee Chief Complaint NEW CONCERN/PROBLEM LEFT KNEE room 1 MONTHLY EXAM LONG-TERM LABWORK MONTHLY MONTHLY EXAM NEW PROBLEM LONG-TERM LABWORK Reason for Visit Pes anserinus bursit is of left knee Osteoarthritis of left knee Chief Complaint LONG-TERM LABWORK MONTHLY EXAM LONG-TERM LAB WORK MONTHLY EXAM NEW CONCERN left knee Reason for Visit Pes anserinus bursit is of left knee Osteoarthritis of left knee Chief Complaint LEFT KNEE RM 5 LABWORK LEFT KNEE LEFT KNEE LEFT KNEE MONTHLY VISIT MONTHLY EXAM LONG-TERM LAB WORK Reason for Visit Osteoarthritis of le ft knee Osteoarthritis of left knee Osteoarthritis of left knee Osteoarthritis of left knee Chief Complaint LONG-TERM LAB WOR K MONTHLY EXAM - MD MONTHLY EXAM LONG-TERM LAB WORK Chief Complaint MONTHLY EXAM MONTHLY EXAM MD LONG-TERM LAB WORK MONTHLY EXAM MONTHLY EXAM MD Chief Complaint Admit Date LABWORK August 16, 2024 5 :00am LONG-TERM LAB WORK September 16, 2024 5:00am MONTHLY EXAM September 20, 2024 7: 33pm LABWORK October 14, 2024 1 :00am LONG-TERM LAB WORK October 17, 2024 5:00am MONTHLY EXAM October 27, 2024 11:58am LABWORK November 14, 2024 5:00 am Chief Complaint Admit Date LONG-TERM LAB WORK September 16, 2024 5:00am MONTHLY EXAM September 20, 2024 7: 33pm LABWORK October 14, 2024 1 :00am LONG-TERM LAB WORK October 17, 2024 5:00am MONTHLY EXAM October 27, 2024 11:58am LABWORK November 14, 2024 5:00 am MONTHLY EXAM November 15, 2024 5:36 pm LABWORK December 14, 2024 5:00 am Chief Complaint Admit Date LABWORK October 14, 2024 1 :00am LONG-TERM LAB WORK October 17, 2024 5:00am MONTHLY EXAM October 27, 2024 11:58am LABWORK November 14, 2024 5:00 am MONTHLY EXAM November 15, 2024 5:36 pm LABWORK December 14, 2024 5:00 am LABWORK January 14, 2025 8:25am Chief Complaint Admit Date LABWORK October 14, 2024 1 :00am LONG-TERM LAB WORK October 17, 2024 5:00am MONTHLY EXAM October 27, 2024 11:58am LABWORK November 14, 2024 5:00 am MONTHLY EXAM November 15, 2024 5:36 pm LABWORK December 14, 2024 5:00 am LONG-TERM LAB WORK January 12, 2025 5:00 am LABWORK January 14, 2025 8:25am LABWORK January 18, 2025 5:00am Chief Complaint Admit Date LABWORK November 14, 2024 5:00 am MONTHLY EXAM November 15, 2024 5:36 pm LABWORK December 14, 2024 5:00 am Monthly Exam December 16, 2024 5:46 pm LONG-TERM LAB WORK January 12, 2025 5:00 am LABWORK January 14, 2025 8:25am LABWORK January 18, 2025 5:00am LONG-TERM LAB WORK January 23, 2025 5:0 0am Additional Source Comments INFORMATION SOURCE (unrecogn ized section and content) DATE CREATED AUTHOR 10/03/2019 [facility] ([place]) DATE CREATED AUTHOR AUTHOR'S ORGANIZ ATION 03/07/2025 [facility] Goals (unrecognized section and content) Goals may [...] MD Primary Care Provider Active Zeina Balbuena [employer] SCI[employer]IST, [employer]ET[employer] SCIENTIST-C Attending Provider Active Team Status: Inactive Member [...] MD Primary Care Provider Active Carmen Shaikh [employer]ET[employer] SCIENTIST-C Attending Provider Active Team Status: Active Member [...] End: December 16, 2024 Zeina Balbuena NP, WETLAND SCIENTIST-C Attending Provider Active Start: December 16, 2024 [...] BE BASED ON THE PRIMARY CLINICAL RECORDS. [employer] provides no warranty or guarantee of the accuracy or completeness of information in this document.
[2025-03-14 11:05] LABS: Anion Gap 9 (5-15); BUN 23 mg/dL (4-19); BUN/Creat Ratio 38.6 RATIO (10-20); Calcium,Total 9.1 mg/dL (7.6-11.0); Carbon Dioxide 28.1 mmol/L (21.0-32.0); Chloride 105 mmol/L (98-108); Glucose 82 mg/dL (70-99); Potassium 4.1 mmol/L (3.3-5.1)
[2025-03-14 11:19] LABS: Hematocrit 39.8 % (37-47); Hemoglobin 12.8 g/dL (12.0-15.0); Immature Granulocytes Count 0.040 X10^3/uL (0.0-0.0); Mean Corp Hgb Conc 32.2 g/dL (32-36); Mean Corpuscular Volume 99.0 fL (81-99); Mean Platelet Vol. 10.4 fl (6.2-12.0); NRBC Flagged by Analyzer 0 % (0-5); Platelet Count 238 K/mm3 (150-450); RBC Distribution Width CV 12.8 % (11.6-14.6); RBC Distribution Width SD 46.6 fl (35.1-43.9); Red Blood Count 4.02 M/mm3 (4.2-5.4); White Blood Count 6.5 K/mm3 (4.4-11.0)
== END ==
LOC: OLS.WHLCAR 05:00
PROVIDERS: PCP Internal Medicine; Visit Provider Internal Medicine
DX: I10 Essential (primary) hypertension (principal); I25.10 Atherosclerotic heart disease of native coronary artery without angina pectoris; R53.82 Chronic fatigue, unspecified
CPT/HCPCS: 36415; 80048; 85025

== ENCOUNTER → 2025-04-14 | Outpatient (REF) | payer MEDICARE, MEDICAID, SELFPAY ==
--- OUTSIDE RECORDS SUMMARY | 2025-04-14 04:23 | XMS RPT_ITS | CCD ---
Author Organization [facility] Care Team Providers Care Barrel Drainer Name Role Phone Hung Davison Unavailable Unavailable Mirella Mccracken Unavailable Armando Gutierrez Unavailable [facility] Unavailable Art Curry Unavailable Alba Sargent Unavailable Amita Antoine Unavailable Dick Morris Unavailable [facility] Unavailable Kya Valdivia Unavailable Joe Skinner Unavailable Alyson Dixon Unavailable Unavailable Unavailable Unavailable TRUDY Chambers Attending Provider Dr. Cl Tsang Primary Care Provider MD Cl Tsang Referring Provider Unavailable Dr. Thom Montiel Attending Provider TRUDY Chambers Referring Provider Esha MOTEL MANAGER, MOTEL MANAGER-C Zeina Attending Provider Dr. Cl Williamson Primary Care Provider Dr. Cl Tsang Primary Care Provider Esha MOTEL MANAGER, MOTEL MANAGER-C Zeina Attending Provider Dr. Cl Williamson Primary Care Provider Esha MOTEL MANAGER, MOTEL MANAGER-C Zeina Attending Provider Dr. Cl Williamson Referring Provider TRUDY Chambers Attending Provider Dr. Thom Montiel Attending Provider Dr. Cl Tsang Primary Care Provider Dr. Cl Tsang Referring Provider TRUDY Chambers Attending Provider Dr. Thom Montiel Attending Provider Esha MOTEL MANAGER, MOTEL MANAGER-C Zeina Attending Provider UnaDr. Tomas Reyna Attending Provider Dr. Yesika Faust Attending Provider [phone] Dr. Cl Tsang Primary Care Provider Dr. Cl Tsang Referring Provider Dr. Thom Montiel Attending Provider Dr. Cl Tsang Primary Care Provider Esha MOTEL MANAGER, MOTEL MANAGER-C Zeina Attending Provider Unav Dr. Yesika Bailey Attending Provider [phone] Dr. Cl Tsang Referring Provider TRUDY Chambers Attending Provider [phone] Dr. Cl Tsang Primary Care Provider Dr. Cl Tsang Referring Provider TRUDY Chambers Attending Provider [phone] Dr. Thom Montiel Attending Provider sEha MOTEL MANAGER, MOTEL MANAGER-C Zeina Attending Provider Dr. Yesika Reed Attending Provider [phone] Dr. Cl Tsang Primary Care Provider Dr. Yesika Faust Attending Provider [phone] TRUDY Parada Attending Provider [phone] Dr. Cl Tsang Primary Care Provider Dr. Yesika Faust Attending Provider [phone] FANTASMA Shaikh Attending Provider [phone] Christianne GE, Dr. Napoles [...] Dr. Napoles Attending Provider [phone] Esha ARGUELLES-CZeina Attending Provider [phone] Christianne GE, Dr. Napoles Primary Care Provider Yesika Faust MD Attending Provider Unavailchristian Balbuena NP-CZeina Attending Provider Christianne GE, Dr. Napoles Primary Care Provider Yesika Faust MD Attending Provider Unavailchristian Faust MD, Dr. Napoles Attending Provider [phone] Miguel Parada Attending Provider [phone] Oleghe OLS Efewongbe Attending Unavailabl e Oleghe, Efewongbe Primary Care Unavailable Oleghe OLS Efewongbe Attending Unavailabl e Oleghe, Efewongbe Primary Care Unavailable Tickton MOTEL MANAGERZeina Attending Unavailable Oleghe, Efewongbe Primary Care Unavailable [place] MOTEL MANAGERZeina Attending Unavailable Oleghe, Efewongbe Primary Care Unavailable [...] Care Unavailable Tickton OLS, Zeina Attending Unavailable Oleghe OLS, Efewongbe Attending Unavailabl e Oleghe, Efewongbe Primary Care Unavailable Oleghe OLS, Efewongbe Attending Unavailabl e Oleghe, Efewongbe Primary Care Unavailable Tickton OLS, Zeina Attending Unavailable Oleghe, Efewongbe Primary Care Unavailable Oleghe OLS, Efewongbe Attending Unavailabl e Oleghe, Efewongbe Primary Care Unavailable Oleghe OLS, Efewongbe Attending Unavailabl e Oleghe, Efewongbe Primary Care Unavailable Oleghe, Efewongbe Primary Care Unavailable Tickton MOTEL MANAGER, Zeina Attending Unavailable Oleghe, Efewongbe Attending Unavailable Oleghe, Efewongbe Primary Care Unavailable Oleghe, Efewongbe Primary Care Unavailable Tickton MOTEL MANAGER, Zeina Attending Unavailable [place] MOTEL MANAGER, Zeina Attending Unavailable Oleghe, Efewongbe Primary Care Unavailable Oleghe OLS, Efewongbe Attending Unavailabl e Oleghe, Efewongbe Primary Care Unavailable Oleghe, Efewongbe Primary Care Unavailable Miguel Saldivar Attending Unavailable Oleghe OLS, Efewongbe Attending Unavailabl e Oleghe, Efewongbe Primary Care Unavailable Oleghe, Efewongbe Primary Care Unavailable Oleghe, Efewongbe Attending Unavailable [place]ickton MOTEL MANAGER, Zeina Attending Unavailable Oleghe, Efewongbe Primary Care Unavailable Oleghe, Efewongbe Primary Care Unavailable Oleghe, Efewongbe Attending Unavailable Oleghe, Efewongbe Primary Care Unavailable ColttMiguel Attending Unavailable Tickton MOTEL MANAGER, Zeina Attending Unavailable Oleghe, Efewongbe Primary Care Unavailable [place] MOTEL MANAGER, Zeina Attending Unavailable Oleghe, Efewongbe Primary Care Unavailable Oleghe, Efewongbe Primary Care Unavailable Oleghe, Efewongbe Attending Unavailable [place]ickton MOTEL MANAGER, Zeina Attending Unavailable Oleghe, Efewongbe Primary Care Unavailable Oleghe, Efewongbe Primary Care Unavailable Miguel Saldivar Attending Unavailable Oleghe, Efewongbe Primary Care Unavailable Oleghe, Efewongbe Attending Unavailable Oleghe, Efewongbe Primary Care Unavailable Carmen Shaikh Attending Unavailable Oleghe Yesika VICENTE Attending Unavailabl e Oleghe, Efewongbe Primary Care Unavailable Oleghe Jed VICENTEongbe Attending Unavailabl e Oleghe, Efewongbe Primary Care Unavailable Allergies Allergy Classification Reported Allergen(s) Allergy Type Date of Onset Reaction(s) Facility (2 sources) acetaminophen / HYDROcodone; Translations: [VICODIN] allergy to substance 05-08-20 11 [facility] Work Phone: (18 sources) HYDROcodone; Translations: [HYDROCODONE] allergy to substance 12-30-19 12 Other [facility] Work Phone: (1 source) Sulfonamides (Antibiotic) drug allergy [facility] Work Phone: (18 sources) Acetaminophen / HYDROcodone; [...] Drug Allergy [facility] Work Phone: (15 sources) Acetaminophen Drug Allergy 09-01-20 22 Other [facility] (15 sources) Sulfamethoxazole Drug Allergy 09-01-20 22 Other [facility] (1 source) Acetaminophen Drug Allergy 02-07-20 [facility] Repository (1 source) Sulfamethoxazole Drug Allergy 02-07-20 24 [facility] Repository Medications Current Medications Medication Drug Class(es) Dates Sig (Normalized) Sig (Original) acetaminophen 500 mg oral tablet (20 sources) Start: 02-07-2024 take 2 tablets by [...] TABS One tablet by mouth daily ASPIRIN [id number] Kaelyn Ellis RN Start: 11-12-2011 End: 11-12-2011 ASPIRIN LOW DOSE, 81MG (Oral Tablet Delayed Release) [address] qd for 0 days Quantity: 30 {Tablet_DR} Refills: 0 Ordered: 12-Nov-2011 Mirella Mccracken DO, DO, Kathleen Start : 12-Nov-2011 End : 12-Nov-2011 Discontinued End: 04-12-2012 take 1 tablet by mouth once daily ASPIRIN EC 81 MG TBEC One tablet by mouth daily ASPIRIN [id number] Jose Vargas MD cloNIDine hydrochloride 0.1 mg oral tablet (12 sources) Central alpha-2 Adrenergic Agonist Start: 04-09-2023 [...] PO. diclofenac sodium 0.01 mg/mg topical gel (18 sources) Nonsteroidal Anti-inflammatory Drug Start: 09-30-2021 apply [...] hand docusate sodium 50 mg / sennosides, detention 8.6 mg oral tablet (8 sources) Start: 02-07-2024 Sennosides-Doc usate Sodium (Senexon-S) 8.6-50 mg tablet Active 2 NMA PO AT BEDTIME February 07, 2024 12:00am donepezil hydrochloride 10 mg oral tablet (20 sources) Start: 02-07-2024 take 1 tablet by [...] 12:00am Start: 02-07-2024 take 1 capsule by [facility] once daily Duloxetine 60 mg capsule,delayed release(DR/EC) Active 60 mg PO DAILY February 07, 2024 12:00am Start: 12-01-2013 End: 12-01-2013 CYMBALTA, 30MG (Oral Capsule Delayed Release Particles) [address] Part qd for 0 days Quantity: 30 {Capsule} Refills: 3 Ordered: 01-Dec-2013 Mirella Mccracken DO Nicole DO, Mirella Start : 01-Dec-2013 End : 01-Dec-2013 Discontinued Comments: substitute generic please Start: 08-08-2013 End: 04-10-2014 take 1 tablet by mouth once daily CYMBALTA 20 MG CPEP One tablet by mouth daily DULOXETINE HCL [id number] Jose Vargas MD Comment on above: substitute generic p lease escitalopram 10 mg oral tablet (12 sources) Serotonin Reuptake Inhibitor Start: 3 take 1 tablet by mouth once daily Escitalopram Oxalate 10 mg tablet Active 10 mg PO DAILY April 09, 2023 12:00am melatonin 3 mg oral capsule (12 sources) Start: 3 take 1 capsule by mouth at bedtime Melatonin 3 mg capsule Active 3 mg PO BEDTIME April 09, 2023 12:00am oxyCODONE hydrochloride 5 mg oral tablet (20 sources) Opioid Agonist Start: 4 take 1 tablet by mouth every twelve hours Oxycodone 5 mg tablet Active 5 mg PO Q12H February 07, 2024 12:00am Start: 04-09-2023 take 1 capsule by mo uth every six hours as needed for pain Oxycodone 5 mg capsule Active 5 mg PO EVERY 6 HOURS as needed for pain 0 April 09, 2023 12:00am Vit C,D-Pu-Ffzwr-Lutein-Zeax an (10 sources) Start: 05-13-2019 Vit C,E-Zn-Plan Examiner xm-Ijpqbe-Abgltl Active 1 EACH PO DAILY May 13, 2019 9:27am Start: 05-13-2019 End: 05-21-2023 Vit C,F-Sy-Qbnwy-Lutein-Zeax an Discontinued 1 EACH PO DAILY May 13, 2019 12:00am May 21, 2023 10:07am Start: 05-13-2019 End: 05-21-2023 Vit C,Z-Yc-Kibhb-Lutein-Zeax an Discontinued 1 EACH PO DAILY May 12, 2019 11:00pm May 21, 2023 9:07am Start: 05-13-2019 Vit C,E-Zn-Plan Examiner vf-Vjeewx-Shfrpq Active 1 EACH PO DAILY May 12, 2019 11:00pm Start: 05-13-2019 Vit C,E-Zn-Plan Examiner nf-Phibsw-Pgcdbz Active 1 EACH PO DAILY May 13, 2019 12:00am Completed/Discontinued Medications Medication Drug Class(es) Dates Sig (Normalized) Sig (Original) HYDROCODONE-ACETAM INOPHEN (2 sources) Opioid Agonist Start: 05-07-2016 take 1 tablet by mouth once daily at bedtime NORCO 5-325 MG TABS One tablet by mouth daily @ bedtime HYDROCODONE-ACETAMI NOPHEN [id number] Jose Vargas MD Start: 05-07-2016 End: 06-05-2017 take 1 tablet by mouth once daily at bedtime NORCO 5-325 MG TABS One tablet by mouth daily @ bedtime HYDROCODONE-ACETAMINOPHEN [id number] Jose Vargas MD acetaminophen 325 mg / [...] PERCOCET 5-325 MG TABS As needed OXYCODONE-ACETAMINOPHEN [id number] Kaelyn Ellis RN Start: 12-07-2013 PERCOCET 5-325 MG TABS As needed OXYCODONE-ACETAMINOPHEN [id number] Zaria Trevino PA-C Start: 12-07-2013 End: 11-05-2015 PERCOCET 5-325 MG TABS As ne eded OXYCODONE-ACETAMINOPHEN [id number] Zaria Trevino PA-C Start: 02-10-2013 PERCOCET 10-32 5 MG TABS As needed OXYCODONE-ACETAMINOPHEN [id number] Jose Vargas MD Comment on above: thirty [...] mg/ml / simethicone 4 mg/ml oral suspension (12 sources) Start: 04-09-2023 End: 02-07-2024 take 1 [...] One tablet by mouth daily AMIODARONE HCL [id number] Jose Vargas MD Start: 11-25-2011 take 1 tablet by jeffry twice daily AMIODARONE HCL 200 MG TABS One tablet by mouth twice daily AMIODARONE HCL [id number] Jose Vargas MD amoxicillin 500 mg oral [...] One tablet by mouth daily ATORVASTATIN CALCIUM [id number] Zaria Trevino PA-C Start: 11-25-2011 End: 04-06-2014 [...] 06-Apr-2014 Inactive benzocaine 0.1 mg/mg oral gel (12 sources) Standardized Chemical Allergen Start: 04-09-2023 End: [...] tablet by mouth daily CALCIUM CARBONATE TABS [id number] Dick Morris DO calcium carbonate / vitamin D (2 sources) Start: 01-06-2012 take 1 tablet by mouth once daily CALCIUM + D 600-200 MG-UNIT TABS One tablet by mouth daily CALCIUM CARBONATE-VITAMIN D [id number] Jose Vargas MD Start: 01-06-2012 End: 04-12-2012 take 1 tablet by mouth once daily CALCIUM + D 600-200 MG-UNIT TABS One tablet by mouth daily CALCIUM CARBONATE-VITAMIN D [id number] Jose Vargas MD casanthranol 30 mg / [...] mg capsule Discontinued 500 mg PO Q8H 21 0 December 05, 2023 12:00am February 07, 2024 [...] capsule by mouth every week VITAMIN D3, 22474KHML (Oral Capsule) 1 (one) Capsule Capsule q week for 0 days Quantity: 4 {Capsule} Refills: 3 Ordered: 29-Nov-2015 Alyson Dixon LPN Start : 13-Jul-2014 End : 29-Nov-2015 Inactive Start: 01-06-2012 End: 04-12-2012 take 1 tablet by mouth once daily VITAMIN D 2000 UNIT TABS One tablet by mouth daily CHOLECALCIFEROL [id number] Jose Vargas MD ciprofloxacin 500 mg oral [...] One tablet by mouth daily CRANBERRY CAPS [id number] Zaria Trevino PA-C CRANBERRY-VITAMIN C, 84-20MG (Oral [...] 0.05 % OINT apply twice daily DESONIDE [id number] Dick Morris DO desoximetasone 2.5 mg/ml topical cream (20 sources) Corticosteroid Start: 05-07-2011 End: 06-05-2011 TOPICORT, 0.25% (External Cream) 1 Cream bid for 0 days Quantity: 1 {Cream} Refills: 0 Ordered: 05-Jun-2011 Alyson Dixon LPN Start : 07-May-2011 End : 05-Jun-2011 Inactive TOPICORT 0.25 % CREA apply twice daily DESOXIMETASONE [id number] Dick Morris DO End: 04-12-2012 TOPICORT 0.25 % CREA apply t wice daily DESOXIMETASONE [id number] Jose Vargas MD diazePAM 2 mg oral [...] tablet by mouth twice daily DIPHENHYDRAMINE HCL [id number] Mary Nolen RN ergocalciferol 22639 unt oral capsule (20 sources) Provitamin D2 Compound Start: 01-12-2009 End: 04-13-2014 take 1 capsule by mouth every week ERGOCALCIFEROL, [id number] (Oral Capsule) 1 Capsule 2 x week for 0 days Quantity: 8 {Capsule} Refills: 3 Ordered: 13-Apr-2014 Alyson Dixon LPN Start : 12-Jan-2009 End : 13-Apr-2014 Inactive End: 01-06-2012 VITAMIN D (ERGOCALCIFEROL) 5 0000 UNIT CAPS one tablet twice a week ERGOCALCIFEROL [id number] Dick Morris DO estradiol 0.025 mg vaginal [...] Inactive Start: 02-10-2013 take 1 tablet by [facility] three times daily GABAPENTIN 300 MG CAPS One tablet by mouth three times daily GABAPENTIN [id number] Jose Vargas MD Start: 02-10-2013 End: 11-05-2015 take 1 tablet by mouth twice daily GABAPENTIN 600 MG TABS One tablet by mouth twice daily GABAPENTIN [id number] Zaria Trevino PA-C Start: 01-06-2012 take 1 tablet by jeffry th three times daily NEURONTIN 100 MG CAPS One tablet by mouth three times daily GABAPENTIN [id number] Jose Vargas MD hydrOXYzine hydrochloride 50 mg [...] Quantity: 3 {Tablet} Refills: 1 Ordered: 13-Dec-2009 Mirella Mccracken DO, DO, Kathleen Start : 13-Dec-2009 End : 13-Dec-2009 Discontinued 24 hr isosorbide mononitrate 30 mg extended release oral tablet (4 sources) Start: 08-08-2013 End: 12-07-2013 take 1 tablet by mouth once daily ISOSORBIDE MONONITRATE ER 30 MG [id number] One tablet by mouth daily (Imdur) ISOSORBIDE MONONITRATE [id number] Zaria Trevino PA-C Start: 04-27-2013 take 1 tablet by jeffry th once daily IMDUR 60 MG [id number] One tablet by mouth daily ISOSORBIDE MONONITRATE [id number] Jose Vargas MD Start: 03-09-2013 take 1 tablet by jeffry th once daily IMDUR 30 MG [id number] One tablet by mouth daily ISOSORBIDE MONONITRATE [id number] Jose Vargas MD F-XCOOUPAGEHUR-U78-[id number]-B2 TAB S (2 sources) take 1 tablet by mouth once daily CEREFOLIN TABS One tablet by mouth daily [id number]-[id number]-[id number]-[id number] TABS [id number] Dick Morris DO End: 12-22-2011 take 1 tablet by mouth once daily CEREFOLIN TABS One tablet by mouth daily N-[id number]-E73-B6-B2 TABS [id number] Mary Nolen RN lisinopril 5 mg oral tablet (20 sources) Angiotensin Converting Enzyme Inhibitor Start: 04-24-2014 End: 06-27-2014 take 1 tablet by mouth once daily LISINOPRIL 2.5 MG TABS One tablet by mouth daily LISINOPRIL [id number] Kaelyn Ellis RN Start: 12-07-2013 End: 04-10-2014 take 1 tablet by mouth once daily LISINOPRIL 5 MG TABS One tablet by mouth daily LISINOPRIL [id number] Jose Vargas MD Start: 04-27-2013 End: 11-05-2015 [...] Start : 06-May-2011 End : 05-Jun-2011 Inactive LORazepam 0.5 mg oral tablet (20 sources) Benzodiazepine Start: 01-27-2025 End: 03-28-2025 take 1 tablet by mouth three times daily Lorazepam 0.5 mg tablet Discontinued 0.5 mg PO THREE TIMES A DAY 90 30 0 February 26, 2025 12:00am March 27, 2025 12:00am March 28, 2025 12:05am agitation Start: 08-22-2024 End: 01-25-2025 take 1 tablet by mouth three times daily Lorazepam 0.5 mg tablet Discontinued 0.5 mg PO THREE TIMES A DAY 90 30 0 December 26, 2024 10:29am January 24, 2025 12:00am January 25, 2025 12:08am Dementia with agitation Unspecified dementia, unspecified severity, with agitation Start: 12-31-2011 End: 09-16-2012 take 1 tablet by mouth once daily as needed ATIVAN, 0.5MG (Oral Tablet) 1 Tablet qd prn for 0 days Quantity: 30 {Tablet} Refills: 0 Ordered: 16-Sep-2012 Alyson Dixon LPN Start : 31-Dec-2011 End : 16-Sep-2012 Inactive Comments: thirty Comment on above: thirty lutein 20 mg oral tablet (4 sources) Start: 04-10-2014 End: 10-10-2014 take 1 tablet by mouth once daily LUTEIN 20 MG TABS One tablet by mouth daily LUTEIN [id number] Zaria Trveino PA-C End: 07-08-2012 take 1 tablet by mouth once daily LUTEIN CAPS One tablet by mouth daily LUTEIN CAPS [id number] Dick Morris DO melatonin 3 mg / vitamin b6 10 mg oral tablet (18 sources) Start: 05-13-2019 End: 05-21-2023 Melatonin-Pyridoxine Hcl [...] TABS One tablet by mouth daily MELOXICAM [id number] Zaria Trevino PA-C metaxalone 800 mg oral [...] tablet by mouth twice daily METOPROLOL TARTRATE [id number] Jose Vargas MD Start: 03-11-2012 End: 04-06-2014 [...] tablet by mouth twice daily METOPROLOL TARTRATE [id number] Jose Vargas MD Multivitamin preparation (18 sources) End: 11-29-2015 MULTIVITAMIN (Oral Liquid) for 0 days Refills: 0 Ordered: 29-Nov-2015 Alyson Dixon LPN End : 29-Nov-2015 Inactive nitroglycerin 0.4 mg sublingual tablet (20 sources) Nitrate Vasodilator Start: 01-06-2012 End: 04-10-2014 NITROSTAT 0.4 MG SUBL 1 tablet under tongue every 5 min up to 3 X NITROGLYCERIN [id number] Jose Vargas MD Start: 12-26-2011 End: 11-29-2015 [...] CPDR One capsule by mouth daily OMEPRAZOLE [id number] Lex Munoz Start: 12-31-2011 End: 06-20-2013 PRILOSEC, 20MG (Oral Capsule Delayed Release) [address] qd for 0 days Quantity: 30 {Capsule_DR} Refills: 0 Ordered: 20-Jun-2013 FRANCI Castelan Start : 31-Dec-2011 End : 20-Jun-2013 Inactive End: 12-22-2011 take 1 tablet by mouth once daily PRILOSEC 10 MG CPDR One tablet by mouth daily OMEPRAZOLE [id number] Dick Morris DO pantoprazole 20 mg delayed release oral tablet (2 sources) Proton Pump Inhibitor End: 04-12-2012 take 1 tablet by mouth once daily PROTONIX 20 MG TBEC One tablet by mouth daily PANTOPRAZOLE SODIUM [id number] Jose Vargas MD pravastatin sodium 80 mg [...] Three tablets by mouth daily PREDNISONE TABS [id number] Mary Nolen RN take 3 tablets by mo uth once daily PREDNISONE TABS Three tablets by mouth daily PREDNISONE TABS [id number] Dick Neo Morris DO pregabalin 25 mg oral capsule (20 sources) Start: 02-01-2025 End: 04-01-2025 take 1 capsule by mouth once daily Pregabalin 25 mg capsule Discontinued 25 mg PO daily 30 30 0 March 02, 2025 12:25pm March 31, 2025 12:00am April 01, 2025 12:11am At 5pm Start: 09-30-2024 End: 01-31-2025 Pregabalin (Lyrica) 50 mg ca psule Discontinued 25 mg PO daily 15 30 0 January 01, 2025 4:19pm January 30, 2025 12:00am January 31, 2025 12:08am Start: 09-30-2024 End: 12-04-2024 take 1 capsule by mouth once daily Pregabalin 25 mg capsule Discontinued 25 mg PO daily 30 30 0 November 04, 2024 10:03am December 03, 2024 12:00am December 04, 2024 12:11am Start: 09-30-2021 End: 09-30-2024 take 1 capsule by mouth at bedtime Pregabalin (Lyrica) 50 mg capsule Discontinued 50 mg PO AT BEDTIME September 30, 2021 1:00am September 30, 2024 5:08pm rosuvastatin calcium 10 mg oral tablet (20 [...] One tablet by mouth daily ROSUVASTATIN CALCIUM [id number] Jose Vargas MD Comment on above: substitute generic Mail order. DOCUSATE SODIUM CAPS (2 sources) COLACE CAPS as n eeded DOCUSATE SODIUM CAPS [id number] Dick Morris DO End: 10-10-2014 COLACE CAPS as needed 10/10 DOCUSATE SODIUM CAPS [id number] Zaria Trevino PA-C 28 actuat teriparatide 0.02 [...] Quantity: 30 {Capsule_ER_24HR} Refills: 6 Ordered: 05-Jun-2011 Alysno Dixon LPN Start : 21-Aug-2010 End : 05-Jun-2011 Inactive End: 12-22-2011 take 1 tablet by mouth once daily DETROL LA 4 MG [id number] One tablet by mouth daily TOLTERODINE TARTRATE [id number] Mary Nolen RN take 1 tablet by jeffry th once daily DETROL LA 4 MG [id number] One tablet by mouth daily TOLTERODINE TARTRATE [id number] Dick Morris DO traMADol hydrochloride 50 mg [...] mouth three times daily TRAMADOL HCL TABS [id number] Dick Morris DO End: 12-22-2011 take 1 tablet by mouth three times daily ULTRAM TABS One tablet by mouth three times daily TRAMADOL HCL TABS [id number] Mary Nolen RN Comment on above: [age]-- [...] sources) Serotonin and Norepinephrine Reuptake Inhibitor Start: End: take 1 tablet by mouth once daily VENLAFAXINE HCL, 37.5MG (Oral Tablet) 1 (one) Tablet Tablet qd for 0 days Quantity: 30 {Tablet} Refills: 3 Ordered: 06-Apr-2014 Alyson Dixon LPN Start : 01-Dec-2013 End : 06-Apr-2014 Inactive Vit C,H-Yi-Kjlvg-Lutein-Ze axan 1 EACH capsule (8 sources) Start: 019 End: take 1 capsule by mouth once daily Vit C,D-Rl-Jcria-Lutein-Z eaxan 1 EACH capsule Discontinued 1 NMA PO DAILY May 13, 2019 12:00am May 21, 2023 10:07am CHOLECALCIFEROL (4 sources) Start: End: take 1 tablet by mouth once daily VITAMIN D 1000 UNIT TABS One tablet by mouth daily CHOLECALCIFEROL [id number] Zaria Trevino PA-C Start: 11-02-2015 take 1 tablet by jeffry th once daily VITAMIN D 1000 UNIT TABS One tablet by mouth daily CHOLECALCIFEROL [id number] Mary Nolen RN Start: 02-10-2013 End: 10-10-2014 take 1 tablet by mouth once daily VITAMIN D 1000 UNIT TABS One tablet by mouth daily CHOLECALCIFEROL [id number] Zaria Trevino PA-C Start: 02-10-2013 take 1 tablet by jeffry th once daily VITAMIN D 1000 UNIT TABS One tablet by mouth daily CHOLECALCIFEROL [id number] Jose Vargas MD Problems Active Problems Problem [...] disease (20 sources) Atherosclerotic heart disease of [place] coronary artery without angina pectoris; Translations: [Coronary arteriosclerosis] Onset: 12-30-2011 10-31-2016 Chronic Delirium, dementia, and amnestic and other cognitive disorders (18 sources) Dementia; Translations: [Dementia with agitation] Onset: 02-10-2025 08-22-2024 Chronic Disorders of lipid metabolism (20 sources) Hyperlipidemia; Translations: [Pure hypercholesterolemia] Onset: 01-06-2012 01-06-2012 Chronic Essential hypertension (20 sources) Hypertensive disorder; Translations: [Essential (primary) hypertension] [...] fatigue, unspecified; Translations: [Chronic fatigue, unspecified] Onset: 02-10-2025 Chronic Malignant neoplasm without specification of site [...] on above: dexa due 10/2016 Other aftercare (18 sources) Long-term current use of drug therapy; Translations: [Other usp (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 therapy] 11-23-2017 Episodic Other bone disease and musculoskeletal deformities (8 sources) Avascular necrosis of bone of hip; 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] 02-07-2024 Chronic Other circulatory disease (19 sources) Carotid bruit; Translations: [Other specified symptoms [...] conditions due to external causes (18 sources) History of fall; Translations: [History of falling] 10-24-2013 Episodic Other nervous system disorders (8 sources) Walking disability; Translations: [Difficulty in walking, not elsewhere classified] 02-07-2024 Chronic Other non-traumatic joint disorders (15 sources) Pain in left knee; Translations: [Left [...] of mental health and substance abuse codes (18 sources) Tobacco use and exposure - finding; [...] classified elsewhere, unspecified severity, with agitation] Onset: 02-03-2025 Urinary tract infections (20 sources) Acute cystitis; Translations: [Urinary tract infection, site not specified] Onset: 01-27-2025 01-21-2018 Episodic Past or Other Problems Problem [...] (current) use of other medications; Translations: [Other long term care phlebotomist (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 therapy] Onset: 07-08-2013 Resolved: 05-11-2015 [...] p laced her on asa-- cardio at [facility]- he said no more plavix ever- rec [...] p laced her on asa-- cardio at [facility]- he said no more plavix ever- rec [...] Test Name Value Interpretation Reference Range Facility Absolute lymphocyte countOrd ered By: Yesika Faust on 03-14-2025 Lymphocytes Auto (Unsp spec) [#/Vol] 2.03 10*3/uL 0.83-4.51 [facility] Absolute neutrophil countOrd ered By: Yesika Faust on 03-14-2025 Neutrophils (Bld) [#/Vol] 3.4 10*3/uL 2.0-7.7 [facility] Anion gap in Serum or Plasma Ordered By: Yesika Faust on 03-14-2025 Anion gap [Moles/Vol] 9 mmol/L 5-15 [facility] Automated lymphocyte count a s percentage of total leukocytesOrdered By: Yesika Faust on 03-14-2025 Lymphocytes/100 WBC Auto (Unsp spec) 31.4 % 19-41 [facility] BUN/creatinine ratioOrdered By: Yesika Faust on 03-14-2025 Urea nitrogen/Creatinine [Mass ratio] 38.6 mg/mg High 10-20 [facility] Basophil percentageOrdered B y: Yesika Faust on 03-14-2025 Basophils/100 WBC (Bld) 0.5 % 0-1 [facility] Carbon dioxide, total [Moles /volume] in Central venous bloodOrdered By: Tadenriquetasaeidmacarena Butterfieldkathierafaela on 03-14-2025 CO2 [Moles/Vol] 28.1 mmol/L 21.0-32.0 [facility] Chloride assayOrdered By: Tad shymacarena Butterfieldkathierafaela on 03-14-2025 Chloride [Moles/Vol] 105 mmol/L 98-108 [facility] Eosinophil percentageOrdered By: Tadenriquetasaeidmacarena Butterfieldkathierafaela on 03-14-2025 Eosinophils/100 WBC (Bld) 5.6 % High 0-5 [facility] Erythrocyte distribution wid th ratioOrdered By: Tadenriquetadenae Scoutkathierafaela on 03-14-2025 Erythrocyte distribution width (RBC) [Ratio] 12.8 % 11.6-14.6 [facility] Erythrocyte distribution wid th standard deviationOrdered By: ky Scoutkathierafaela on 03-14-2025 Erythrocyte distribution width (RBC) [Ratio] 46.6 fl High 35.1-43.9 [facility] Glomerular filtration rate ( GFR) estimation/1.73 sq m using serum, plasma, or whole bOrdered By: Tadky Butterfieldkathierafaela on 03-14-2025 GFR/1.73 sq M.predicted among non-blacks MDRD (S/P/Bld) [Vol rate/Area] 88 mL/min/{1.73_m2} >60 [facility] Comment on above: mL/min/1.73m2 CKD-EP I Creatinine Equation (2020) Hematocrit Auto (Bld) [Volum e fraction]Ordered By: Yesika Faust on 03-14-2025 Hematocrit (Bld) [Volume fraction] 39.8 % 37-47 [facility] Hemoglobin measurementOrdere d By: Yesika Faust on 03-14-2025 Hemoglobin (Bld) [Mass/Vol] 12.8 g/dL 12.0-15.0 [facility] Immature granulocytes/100 WB C Auto (Bld)Ordered By: Yesika Faust on 03-14-2025 Immature granulocytes/100 WBC (Bld) 0.600 % 0.0-0.9 [facility] Comment on above: IG% - Immature Granu locytes (promyelocytes, myelocytes and metamyelocytes) > 1% indicates that a LEFT SHIFT is Present. MCV (mean corpuscular volume ) determinationOrdered By: Yesika Faust on 03-14-2025 MCV (RBC) [Entitic vol] 99.0 fL 81-99 [facility] Mean corpuscular hemoglobin (MCH) determinationOrdered By: Yesika Faust on 03-14-2025 MCH (RBC) [Entitic mass] 31.8 pg 27.0-32.0 [facility] Mean corpuscular hemoglobin concentration (MCHC) determinationOrdered By: Yesika Faust on 03-14-2025 MCHC (RBC) [Mass/Vol] 32.2 g/dL 32-36 [facility] Mean platelet volume determi nationOrdered By: Yesika Faust on 03-14-2025 Platelet mean volume (Bld) [Entitic vol] 10.4 fL 6.2-12.0 [facility] Monocyte percentageOrdered B y: Yesika Faust on 03-14-2025 Monocytes/100 WBC (Bld) 10.2 % High 0-10 [facility] Neutrophil percentageOrdered By: Yesika Faust on 03-14-2025 Neutrophils/100 WBC (Bld) 51.7 % 47-70 [facility] Nucleated red blood cell per centageOrdered By: Yesika Faust on 03-14-2025 Nucleated RBC/100 WBC (Bld) [Ratio] 0 % 0-5 [facility] Platelet countOrdered By: Tad Faust on 03-14-2025 Platelets (Bld) [#/Vol] 238 10*3/uL 150-450 [facility] Potassium measurement (mass/ volume)Ordered By: Yesika Faust on 03-14-2025 Potassium (Unsp spec) [Mass/Vol] 4.1 mmol/L 3.3-5.1 [facility] RBC Auto (Bld) [#/Vol]Ordere d By: Yesika Faust on 03-14-2025 RBC (Bld) [#/Vol] 4.02 10*6/uL Low 4.2-5.4 [facility] Serum creatinine measurement (mass/volume)Ordered By: Yesika Faust on 03-14-2025 Creatinine [Mass/Vol] 0.60 mg/dL Low 0.70-1.20 [facility] Serum glucose measurement (m ass/volume)Ordered By: Yesika Faust on 03-14-2025 Glucose [Mass/Vol] 82 mg/dL 70-99 [facility] Serum or plasma calcium madi urement (mass/volume)Ordered By: Yesika Faust on 03-14-2025 Calcium [Mass/Vol] 9.1 mg/dL 7.6-11.0 [facility] Serum or plasma urea nitroge n measurement (mass/volume)Ordered By: Yesika Faust on 03-14-2025 Urea nitrogen [Mass/Vol] 23 mg/dL High 4-19 [facility] Sodium levelOrdered By: Jed Faust on 03-14-2025 Sodium [Moles/Vol] 142 mmol/L 133-145 [facility] White blood cell (WBC) count Ordered By: Yesika Faust on 03-14-2025 WBC (Bld) [#/Vol] 6.5 10*3/uL 4.4-11.0 [facility] Bilirubin Test strip Ql (U)O rdered By: Yesika Faust on 03-06-2025 Bilirubin Ql (U) Negative Negative [facility] Ketones Test strip Ql (U)Ord ered By: Yesika Faust on 03-06-2025 Ketones Ql (U) 5 mg/dl High Negative [facility] Nitrite Test strip Ql (U)Ord ered By: Yesika Faust on 03-06-2025 Nitrite Ql (U) Negative Negative [facility] Protein Test strip Ql (U)Ord ered By: Yesika Faust on 03-06-2025 Protein Ql (U) 100 mg/dl High Negative [facility] Urine clarityOrdered By: Randall Faust on 03-06-2025 Clarity (U) Turbid Clear [facility] Urine color determinationOrd ered By: Yesika Faust on 03-06-2025 Color (U) Yellow Yellow [facility] Urine cultureOrdered By: Randall Faust on 03-06-2025 Bacteria identified Cx Nom (U) Proteus mirabilis Abnormal [facility] Urine glucose detectionOrder ed By: Yesika Faust on 03-06-2025 Glucose Ql (U) Normal mg/dl Normal [facility] Urine leukocyte esterase det ection by dipstickOrdered By: Yesika Faust on 03-06-2025 Leukocyte esterase Test strip Ql (U) 500 /ul High Negative [facility] Urine pHOrdered By: Fernando Faust on 03-06-2025 pH (U) 6.0 [pH] 5.0 - 8.0 [facility] Urine specific gravity measu rementOrdered By: Yesika Faust on 03-06-2025 Specific gravity (U) [Rel density] 1.020 1.002-1.03 0 [facility] Urine urobilinogen measureme ntOrdered By: Yesika Faust on 03-06-2025 Urobilinogen Ql (U) Normal mg/dl Normal [facility] Serum or plasma valproate me asurement (mass/volume)Ordered By: Yesika Faust on 02-27-2025 Valproate [Mass/Vol] 15 ug/mL Low 50-100 [facility] Comment on above: Valproic Acid concen trations >100 ug/mL are potentially toxic. Absolute lymphocyte countOrd ered By: Yesika Faust on 02-13-2025 Lymphocytes Auto (Unsp spec) [#/Vol] 1.82 10*3/uL 0.83-4.51 [facility] Absolute neutrophil countOrd ered By: Yesika Faust on 02-13-2025 Neutrophils (Bld) [#/Vol] 3.5 10*3/uL 2.0-7.7 [facility] Anion gap in Serum or Plasma Ordered By: Yesika Faust on 02-13-2025 Anion gap [Moles/Vol] 10 mmol/L 5-15 [facility] Automated lymphocyte count a s percentage of total leukocytesOrdered By: Yesika Faust on 02-13-2025 Lymphocytes/100 WBC Auto (Unsp spec) 29.1 % 19-41 [facility] BUN/creatinine ratioOrdered By: Yesika Faust on 02-13-2025 Urea nitrogen/Creatinine [Mass ratio] 32.3 mg/mg High 10-20 [facility] Basophil percentageOrdered B y: Yesika Faust on 02-13-2025 Basophils/100 WBC (Bld) 0.6 % 0-1 [facility] Carbon dioxide, total [Moles /volume] in Central venous bloodOrdered By: Yesika Faust on 02-13-2025 CO2 [Moles/Vol] 28.1 mmol/L 21.0-32.0 [facility] Chloride assayOrdered By: Tad Faust on 02-13-2025 Chloride [Moles/Vol] 101 mmol/L 98-108 [facility] Eosinophil percentageOrdered By: ky Faust on 02-13-2025 Eosinophils/100 WBC (Bld) 3.7 % 0-5 [facility] Erythrocyte distribution wid th ratioOrdered By: Yesika Faust on 02-13-2025 Erythrocyte distribution width (RBC) [Ratio] 12.9 % 11.6-14.6 [facility] Erythrocyte distribution wid th standard deviationOrdered By: enriquetaauburnmacarena Faust on 02-13-2025 Erythrocyte distribution width (RBC) [Ratio] 46.5 fl High 35.1-43.9 [facility] Glomerular filtration rate ( GFR) estimation/1.73 sq m using serum, plasma, or whole bOrdered By: Yesika Faust on 02-13-2025 GFR/1.73 sq M.predicted among non-blacks MDRD (S/P/Bld) [Vol rate/Area] 87 mL/min/{1.73_m2} >60 [facility] Comment on above: mL/min/1.73m2 CKD-EP I Creatinine Equation (2020) Hematocrit Auto (Bld) [Volum e fraction]Ordered By: Yesika Faust on 02-13-2025 Hematocrit (Bld) [Volume fraction] 43.2 % 37-47 [facility] Hemoglobin measurementOrdere d By: Yesika Faust on 02-13-2025 Hemoglobin (Bld) [Mass/Vol] 13.9 g/dL 12.0-15.0 [facility] Immature granulocytes/100 WB C Auto (Bld)Ordered By: ky Faust on 02-13-2025 Immature granulocytes/100 WBC (Bld) 0.300 % 0.0-0.9 [facility] Comment on above: IG% - Immature Granu locytes (promyelocytes, myelocytes and metamyelocytes) > 1% indicates that a LEFT SHIFT is Present. MCV (mean corpuscular volume ) determinationOrdered By: Yesika Faust on 02-13-2025 MCV (RBC) [Entitic vol] 97.7 fL 81-99 [facility] Mean corpuscular hemoglobin (MCH) determinationOrdered By: enriquetaauburnmacarena Faust on 02-13-2025 MCH (RBC) [Entitic mass] 31.4 pg 27.0-32.0 [facility] Mean corpuscular hemoglobin concentration (MCHC) determinationOrdered By: Yesika Faust on 02-13-2025 MCHC (RBC) [Mass/Vol] 32.2 g/dL 32-36 [facility] Mean platelet volume determi nationOrdered By: Yesika Faust on 02-13-2025 Platelet mean volume (Bld) [Entitic vol] 10.3 fL 6.2-12.0 [facility] Monocyte percentageOrdered B y: Yesika Faust on 02-13-2025 Monocytes/100 WBC (Bld) 10.7 % High 0-10 [facility] Neutrophil percentageOrdered By: Yesika Faust on 02-13-2025 Neutrophils/100 WBC (Bld) 55.6 % 47-70 [facility] Nucleated red blood cell per centageOrdered By: Yesika Faust on 02-13-2025 Nucleated RBC/100 WBC (Bld) [Ratio] 0 % 0-5 [facility] Platelet countOrdered By: Tad Faust on 02-13-2025 Platelets (Bld) [#/Vol] 231 10*3/uL 150-450 [facility] Potassium measurement (mass/ volume)Ordered By: Yesika Faust on 02-13-2025 Potassium (Unsp spec) [Mass/Vol] 4.0 mmol/L 3.3-5.1 [facility] RBC Auto (Bld) [#/Vol]Ordere d By: Yesika Faust on 02-13-2025 RBC (Bld) [#/Vol] 4.42 10*6/uL 4.2-5.4 [facility] Serum creatinine measurement (mass/volume)Ordered By: Yesika Faust on 02-13-2025 Creatinine [Mass/Vol] 0.62 mg/dL Low 0.70-1.20 [facility] Serum glucose measurement (m ass/volume)Ordered By: Yesika Faust on 02-13-2025 Glucose [Mass/Vol] 88 mg/dL 70-99 [facility] Serum or plasma calcium madi urement (mass/volume)Ordered By: Yesika Faust on 02-13-2025 Calcium [Mass/Vol] 9.3 mg/dL 7.6-11.0 [facility] Serum or plasma urea nitroge n measurement (mass/volume)Ordered By: Yesika Faust on 02-13-2025 Urea nitrogen [Mass/Vol] 20 mg/dL High 4-19 [facility] Sodium levelOrdered By: Jed jiangbert Christianne on 02-13-2025 Sodium [Moles/Vol] 140 mmol/L 133-145 [facility] White blood cell (WBC) count Ordered By: Yesika Faust on 02-13-2025 WBC (Bld) [#/Vol] 6.3 10*3/uL 4.4-11.0 [facility] Potassium measurement (mass/ volume)Ordered By: Zeina Balbuena on 01-23-2025 Potassium (Unsp spec) [Mass/Vol] 3.8 mmol/L 3.3-5.1 [facility] Absolute lymphocyte countOrd ered By: Yesika Faust on 01-18-2025 Lymphocytes Auto (Unsp spec) [#/Vol] 1.51 10*3/uL 0.83-4.51 [facility] Absolute neutrophil countOrd ered By: Yesika Faust on 01-18-2025 Neutrophils (Bld) [#/Vol] 3.9 10*3/uL 2.0-7.7 [facility] Anion gap in Serum or Plasma Ordered By: Yesika Faust on 01-18-2025 Anion gap [Moles/Vol] 12 mmol/L 5-15 [facility] Automated lymphocyte count a s percentage of total leukocytesOrdered By: Yesika Faust on 01-18-2025 Lymphocytes/100 WBC Auto (Unsp spec) 23.4 % 19-41 [facility] BUN/creatinine ratioOrdered By: Yesika Faust on 01-18-2025 Urea nitrogen/Creatinine [Mass ratio] 36.2 mg/mg High 10-20 [facility] Basophil percentageOrdered B y: Yesika Faust on 01-18-2025 Basophils/100 WBC (Bld) 0.6 % 0-1 [facility] Bilirubin directOrdered By: Yesika Faust on 01-18-2025 Bilirubin.direct [Mass/Vol] 0.11 mg/dL 0.00-0.30 [facility] Bilirubin, totalOrdered By: Yesika Faust on 01-18-2025 Bilirubin [Mass/Vol] 0.25 mg/dL 0.00-1.30 [facility] Carbon dioxide, total [Moles /volume] in Central venous bloodOrdered By: Yesika Faust on 01-18-2025 CO2 [Moles/Vol] 22.7 mmol/L 21.0-32.0 [facility] Chloride assayOrdered By: Tad Faust on 01-18-2025 Chloride [Moles/Vol] 107 mmol/L 98-108 [facility] Eosinophil percentageOrdered By: Yesika Faust on 01-18-2025 Eosinophils/100 WBC (Bld) 6.1 % High 0-5 [facility] Erythrocyte distribution wid th ratioOrdered By: Yesika Faust on 01-18-2025 Erythrocyte distribution width (RBC) [Ratio] 13.4 % 11.6-14.6 [facility] Erythrocyte distribution wid th standard deviationOrdered By: Yesika Faust on 01-18-2025 Erythrocyte distribution width (RBC) [Ratio] 46.6 fl High 35.1-43.9 [facility] Glomerular filtration rate ( GFR) estimation/1.73 sq m using serum, plasma, or whole bOrdered By: Yesika Faust on 01-18-2025 GFR/1.73 sq M.predicted among non-blacks MDRD (S/P/Bld) [Vol rate/Area] 80 mL/min/{1.73_m2} >60 [facility] Comment on above: mL/min/1.73m2 CKD-EP I Creatinine Equation (2020) Hematocrit Auto (Bld) [Volum e fraction]Ordered By: Yesika Faust on 01-18-2025 Hematocrit (Bld) [Volume fraction] 42.1 % 37-47 [facility] Hemoglobin measurementOrdere d By: Yesika Faust on 01-18-2025 Hemoglobin (Bld) [Mass/Vol] 14.2 g/dL 12.0-15.0 [facility] Immature granulocytes/100 WB C Auto (Bld)Ordered By: Yesika Faust on 01-18-2025 Immature granulocytes/100 WBC (Bld) 0.500 % 0.0-0.9 [facility] Comment on above: IG% - Immature Granu locytes (promyelocytes, myelocytes and metamyelocytes) > 1% indicates that a LEFT SHIFT is Present. Laboratory - Chemistry and C hemistry - challengeOrdered By: Yesika Faust on 01-18-2025 AST [Catalytic activity/Vol] 19 U/L <32 [facility] MCV (mean corpuscular volume ) determinationOrdered By: Yesika Faust 01-18-2025 MCV (RBC) [Entitic vol] 94.4 fL 81-99 [facility] Mean corpuscular hemoglobin (MCH) determinationOrdered By: Yesika Faust on 01-18-2025 MCH (RBC) [Entitic mass] 31.8 pg 27.0-32.0 [facility] Mean corpuscular hemoglobin concentration (MCHC) determinationOrdered By: Yesika Faust on 01-18-2025 MCHC (RBC) [Mass/Vol] 33.7 g/dL 32-36 [facility] Mean platelet volume determi nationOrdered By: Yesika Faust on 01-18-2025 Platelet mean volume (Bld) [Entitic vol] 11.6 fL 6.2-12.0 [facility] Monocyte percentageOrdered B y: Yesika Faust on 01-18-2025 Monocytes/100 WBC (Bld) 9.3 % 0-10 [facility] Neutrophil percentageOrdered By: Yesika Faust on 01-18-2025 Neutrophils/100 WBC (Bld) 60.1 % 47-70 [facility] Nucleated red blood cell per centageOrdered By: Yesika Faust on 01-18-2025 Nucleated RBC/100 WBC (Bld) [Ratio] 0 % 0-5 [facility] Platelet countOrdered By: Tad Faust on 01-18-2025 Platelet count TNP [facility] Comment on above: Test not performedPl ease [...] Platelets LM Ql (Bld) SLT DEC ADEQ [facility] Potassium measurement (mass/ volume)Ordered By: Yesika Faust on 01-18-2025 Potassium (Unsp spec) [Mass/Vol] 5.6 mmol/L High 3.3-5.1 [facility] RBC Auto (Bld) [#/Vol]Ordere d By: Yesika Faust on 01-18-2025 RBC (Bld) [#/Vol] 4.46 10*6/uL 4.2-5.4 [facility] Serum creatinine measurement (mass/volume)Ordered By: Yesika Faust on 01-18-2025 Creatinine [Mass/Vol] 0.73 mg/dL 0.70-1.20 [facility] Serum globulin measurementOr dered By: Yesika Faust on 01-18-2025 Globulin (S) [Mass/Vol] 2.5 g/dL 2.2-4.2 [facility] Serum glucose measurement (m ass/volume)Ordered By: Yesika Faust on 01-18-2025 Glucose [Mass/Vol] 84 mg/dL 70-99 [facility] Serum or plasma alanine vela otransferase (ALT) measurementOrdered By: Yesika Faust on 01-18-2025 ALT [Catalytic activity/Vol] 14 U/L <35 [facility] Serum or plasma albumin madi urement (mass/volume)Ordered By: Yesika Faust on 01-18-2025 Albumin [Mass/Vol] 3.7 g/dL 3.4-4.8 [facility] Serum or plasma alkaline mariaelena sphatase measurementOrdered By: Yesika Faust on 01-18-2025 ALP [Catalytic activity/Vol] 106 U/L High 35-104 [facility] Serum or plasma calcium madi urement (mass/volume)Ordered By: Yesika Faust on 01-18-2025 Calcium [Mass/Vol] 9.1 mg/dL 7.6-11.0 [facility] Serum or plasma urea nitroge n measurement (mass/volume)Ordered By: Yesika Faust on 01-18-2025 Urea nitrogen [Mass/Vol] 27 mg/dL High 4-19 [facility] Sodium levelOrdered By: Jed Faust on 01-18-2025 Sodium [Moles/Vol] 141 mmol/L 133-145 [facility] Total proteinOrdered By: Randall Faust on 01-18-2025 Protein [Mass/Vol] 6.1 g/dL 5.9-8.4 [facility] White blood cell (WBC) count Ordered By: Yesika Faust on 01-18-2025 WBC (Bld) [#/Vol] 6.4 10*3/uL 4.4-11.0 [facility] Bilirubin Test strip Ql (U)O rdered By: Yesika Faust on 01-14-2025 Bilirubin Ql (U) Negative Negative [facility] Ketones Test strip Ql (U)Ord ered By: Yesika Faust on 01-14-2025 Ketones Ql (U) Negative Negative [facility] Nitrite Test strip Ql (U)Ord ered By: Yesika Faust on 01-14-2025 Nitrite Ql (U) Negative Negative [facility] Protein Test strip Ql (U)Ord ered By: Yesika Faust on 01-14-2025 Protein Ql (U) 30 mg/dl High Negative [facility] Urine clarityOrdered By: Randall Faust on 01-14-2025 Clarity (U) Cloudy Clear [facility] Urine color determinationOrd ered By: Yesika Faust on 01-14-2025 Color (U) Yellow Yellow [facility] Urine cultureOrdered By: Randall Faust on 01-14-2025 Bacteria identified Cx Nom (U) Proteus mirabilis Abnormal [facility] Urine glucose detectionOrder ed By: Yesika Faust on 01-14-2025 Glucose Ql (U) Normal mg/dl Normal [facility] Urine leukocyte esterase det ection by dipstickOrdered By: Yesika Faust on 01-14-2025 Leukocyte esterase Test strip Ql (U) 500 /ul High Negative [facility] Urine pHOrdered By: Fernando Faust on 01-14-2025 pH (U) 7.0 [pH] 5.0 - 8.0 [facility] Urine specific gravity measu rementOrdered By: Yesika Faust on 01-14-2025 Specific gravity (U) [Rel density] 1.010 1.002-1.03 0 [facility] Urine urobilinogen measureme ntOrdered By: Yesika Faust on 01-14-2025 Urobilinogen Ql (U) Normal mg/dl Normal [facility] Absolute lymphocyte countOrd ered By: Yesika Faust on 01-12-2025 Lymphocytes Auto (Unsp spec) [#/Vol] 1.66 10*3/uL 0.83-4.51 [facility] Absolute neutrophil countOrd ered By: Yesika Faust on 01-12-2025 Neutrophils (Bld) [#/Vol] 3.2 10*3/uL 2.0-7.7 [facility] Anion gap in Serum or Plasma Ordered By: Yesika Faust on 01-12-2025 Anion gap [Moles/Vol] 13 mmol/L 5-15 [facility] Automated lymphocyte count a s percentage of total leukocytesOrdered By: Yesika Faust on 01-12-2025 Lymphocytes/100 WBC Auto (Unsp spec) 27.6 % 19-41 [facility] BUN/creatinine ratioOrdered By: Yesika Faust on 01-12-2025 Urea nitrogen/Creatinine [Mass ratio] 36.9 mg/mg High 10-20 [facility] Basophil percentageOrdered B y: Yesika Faust on 01-12-2025 Basophils/100 WBC (Bld) 0.8 % 0-1 [facility] Bilirubin directOrdered By: Yesika Faust on 01-12-2025 Bilirubin.direct [Mass/Vol] 0.11 mg/dL 0.00-0.30 [facility] Bilirubin, totalOrdered By: Yesika Faust on 01-12-2025 Bilirubin [Mass/Vol] 0.24 mg/dL 0.00-1.30 [facility] Carbon dioxide, total [Moles /volume] in Central venous bloodOrdered By: Yesika Faust on 01-12-2025 CO2 [Moles/Vol] 22.3 mmol/L 21.0-32.0 [facility] Chloride assayOrdered By: Tad Faust on 01-12-2025 Chloride [Moles/Vol] 106 mmol/L 98-108 [facility] Eosinophil percentageOrdered By: Yesika Faust on 01-12-2025 Eosinophils/100 WBC (Bld) 7.2 % High 0-5 [facility] Erythrocyte distribution wid th ratioOrdered By: Yesika Faust on 01-12-2025 Erythrocyte distribution width (RBC) [Ratio] 13.5 % 11.6-14.6 [facility] Erythrocyte distribution wid th standard deviationOrdered By: Yesika Faust on 01-12-2025 Erythrocyte distribution width (RBC) [Ratio] 47.9 fl High 35.1-43.9 [facility] Glomerular filtration rate ( GFR) estimation/1.73 sq m using serum, plasma, or whole bOrdered By: Yesika Faust on 01-12-2025 GFR/1.73 sq M.predicted among non-blacks MDRD (S/P/Bld) [Vol rate/Area] 84 mL/min/{1.73_m2} >60 [facility] Comment on above: mL/min/1.73m2 CKD-EP I Creatinine Equation (2020) Hematocrit Auto (Bld) [Volum e fraction]Or[facility]: [facility] on 01-12-2025 Hematocrit (Bld) [Volume fraction] 40.4 % 37-47 [facility] Hemoglobin measurementOrdere d By: Yesika Faust on 01-12-2025 Hemoglobin (Bld) [Mass/Vol] 13.3 g/dL 12.0-15.0 [facility] Immature granulocytes/100 WB C Auto (Bld)Ordered By: Yesika Faust on 01-12-2025 Immature granulocytes/100 WBC (Bld) 0.300 % 0.0-0.9 [facility] Comment on above: IG% - Immature Granu locytes (promyelocytes, myelocytes and metamyelocytes) > 1% indicates that a LEFT SHIFT is Present. Laboratory - Chemistry and C hemistry - challengeOrdered By: Yesika Faust on 01-12-2025 AST [Catalytic activity/Vol] 16 U/L <32 [facility] MCV (mean corpuscular volume ) determinationOrdered By: Yesika Faust 5 MCV (RBC) [Entitic vol] 97.1 fL 81-99 [facility] Mean corpuscular hemoglobin (MCH) determinationOrdered By: Tadenriquetasaeidmacarena Faust on 01-12-2025 MCH (RBC) [Entitic mass] 32.0 pg 27.0-32.0 [facility] Mean corpuscular hemoglobin concentration (MCHC) determinationOrdered By: Yesika Faust on 01-12-2025 MCHC (RBC) [Mass/Vol] 32.9 g/dL 32-36 [facility] Mean platelet volume determi nationOrdered By: Jedsaeidmacarena Faust on 01-12-2025 Platelet mean volume (Bld) [Entitic vol] 10.7 fL 6.2-12.0 [facility] Monocyte percentageOrdered B y: Yesika Faust on 01-12-2025 Monocytes/100 WBC (Bld) 10.8 % High 0-10 [facility] Neutrophil percentageOrdered By: Yesika Faust on 01-12-2025 Neutrophils/100 WBC (Bld) 53.3 % 47-70 [facility] Nucleated red blood cell per centageOrdered By: enriquetasaeidmacarena Faust on 01-12-2025 Nucleated RBC/100 WBC (Bld) [Ratio] 0 % 0-5 [facility] Platelet countOrdered By: Tad shymacarena Faust on 01-12-2025 Platelets (Bld) [#/Vol] 233 10*3/uL 150-450 [facility] Potassium measurement (mass/ volume)Ordered By: Yesika Faust on 01-12-2025 Potassium (Unsp spec) [Mass/Vol] 4.4 mmol/L 3.3-5.1 [facility] RBC Auto (Bld) [#/Vol]Ordere d By: Yesika Faust on 01-12-2025 RBC (Bld) [#/Vol] 4.16 10*6/uL Low 4.2-5.4 [facility] [facility] Serum creatinine measurement (mass/volume)Ordered By: Yesika Faust on 01-12-2025 Creatinine [Mass/Vol] 0.71 mg/dL 0.70-1.20 [facility] Serum globulin measurementOr dered By: Yesika Faust on 01-12-2025 Globulin (S) [Mass/Vol] 2.2 g/dL 2.2-4.2 [facility] Serum glucose measurement (m ass/volume)Ordered By: Yesika Faust on 01-12-2025 Glucose [Mass/Vol] 95 mg/dL 70-99 [facility] Serum or plasma alanine vela otransferase (ALT) measurementOrdered By: Yesika Faust on 01-12-2025 ALT [Catalytic activity/Vol] 12 U/L <35 [facility] Serum or plasma albumin madi urement (mass/volume)Ordered By: Yesika Faust on 01-12-2025 Albumin [Mass/Vol] 3.5 g/dL 3.4-4.8 [facility] Serum or plasma alkaline mariaelena sphatase measurementOrdered By: Yesika Faust on 01-12-2025 ALP [Catalytic activity/Vol] 110 U/L High 35-104 [facility] Serum or plasma calcium madi urement (mass/volume)Ordered By: Yesika Faust on 01-12-2025 Calcium [Mass/Vol] 9.0 mg/dL 7.6-11.0 [facility] Serum or plasma urea nitroge n measurement (mass/volume)Ordered By: Yesika Faust on 01-12-2025 Urea nitrogen [Mass/Vol] 26 mg/dL High 4-19 [facility] Sodium levelOrdered By: Jed Faust on 01-12-2025 Sodium [Moles/Vol] 142 mmol/L 133-145 [facility] Total proteinOrdered By: Randall Faust on 01-12-2025 Protein [Mass/Vol] 5.7 g/dL Low 5.9-8.4 [facility] White blood cell (WBC) count Ordered By: Yesika Faust on 01-12-2025 WBC (Bld) [#/Vol] 6.0 10*3/uL 4.4-11.0 [facility] Absolute lymphocyte countOrd ered By: Yesika Olekathierafaela on 12-14-2024 Lymphocytes Auto (Unsp spec) [#/Vol] 2.70 10*3/uL 0.83-4.51 [facility] Absolute neutrophil countOrd ered By: Tadenriquetasaeidmacarena Butterfieldkathierafaela on 12-14-2024 Neutrophils (Bld) [#/Vol] 4.2 10*3/uL 2.0-7.7 [facility] Anion gap in Serum or Plasma Ordered By: Yesika Butterfieldkathierafaela on 12-14-2024 Anion gap [Moles/Vol] 12 mmol/L 5-15 [facility] Automated lymphocyte count a s percentage of total leukocytesOrdered By: Yesika Faust on 12-14-2024 Lymphocytes/100 WBC Auto (Unsp spec) 33.0 % 19-41 [facility] BUN/creatinine ratioOrdered By: ky Faust on 12-14-2024 Urea nitrogen/Creatinine [Mass ratio] 30.0 mg/mg High 10-20 [facility] Basophil percentageOrdered B y: Jedsaeidmacarena Butterfieldkathierafaela on 12-14-2024 Basophils/100 WBC (Bld) 1.0 % 0-1 [facility] Carbon dioxide, total [Moles /volume] in Central venous bloodOrdered By: Yesika Butterfieldkathierafaela on 12-14-2024 CO2 [Moles/Vol] 25.1 mmol/L 21.0-32.0 [facility] Chloride assayOrdered By: Tad enriquetadenae Faust on 12-14-2024 Chloride [Moles/Vol] 103 mmol/L 98-108 [facility] Eosinophil percentageOrdered By: Tadky Butterfieldkathierafaela on 12-14-2024 Eosinophils/100 WBC (Bld) 4.4 % 0-5 [facility] Erythrocyte distribution wid th (RBC) [Ratio]Ordered By: Yesika Butterfieldkathierafaela on 12-14-2024 Erythrocyte distribution width (RBC) [Entitic vol] 45.8 fL High 35.1-43.9 [facility] Erythrocyte distribution wid th ratioOrdered By: enriquetaauburnmacarena Faust on 12-14-2024 Erythrocyte distribution width (RBC) [Ratio] 13.2 % 11.6-14.6 [facility] Erythrocyte distribution wid th standard deviationOrdered By: Yesika Faust on 12-14-2024 Erythrocyte distribution width (RBC) [Ratio] 45.8 fl High 35.1-43.9 [facility] GFR/1.73 sq M.predicted giorgio g non-blacks MDRD (S/P/Bld) [Vol rate/Area]Ordered By: Yesika Faust on 12-14-2024 Estimated GFR (MDRD) Non-Af Amer 76 >60 [facility] Comment on above: mL/min/1.73m2 CKD-EP I Creatinine Equation (2020) Glomerular filtration rate ( GFR) estimation/1.73 sq m using serum, plasma, or whole bOrdered By: Yesika Faust on 12-14-2024 GFR/1.73 sq M.predicted among non-blacks MDRD (S/P/Bld) [Vol rate/Area] 76 mL/min/{1.73_m2} >60 [facility] Comment on above: mL/min/1.73m2 CKD-EP I Creatinine Equation (2020) Hematocrit Auto (Bld) [Volum e fraction]Ordered By: Yesika Faust on 12-14-2024 Hematocrit (Bld) [Volume fraction] 46.6 % 37-47 [facility] Hemoglobin measurementOrdere d By: Yesika Faust on 12-14-2024 Hemoglobin (Bld) [Mass/Vol] 15.2 g/dL High 12.0-15.0 [facility] Immature granulocytes/100 WB C Auto (Bld)Ordered By: Yesika Faust on 12-14-2024 Immature granulocytes/100 WBC (Bld) 0.500 % 0.0-0.9 [facility] Comment on above: IG% - Immature Granu locytes (promyelocytes, myelocytes and metamyelocytes) > 1% indicates that a LEFT SHIFT is Present. Lymphocytes Auto (Unsp spec) [#/Vol]Ordered By: Yesika Faust on 12-14-2024 Lymphocytes (Bld) [#/Vol] 2.70 10*3/uL 0.83-4.51 [facility] Lymphocytes/100 WBC Auto (Un sp spec)Ordered By: Yesika Faust on 12-14-2024 Lymphocytes/100 WBC (Bld) 33.0 % 19-41 [facility] MCV (mean corpuscular volume ) determinationOrdered By: Yesika Faust on 12-14-2024 MCV (RBC) [Entitic vol] 94.7 fL 81-99 [facility] Mean corpuscular hemoglobin (MCH) determinationOrdered By: Yesika Faust on 12-14-2024 MCH (RBC) [Entitic mass] 30.9 pg 27.0-32.0 [facility] Mean corpuscular hemoglobin concentration (MCHC) determinationOrdered By: Yesika Faust on 12-14-2024 MCHC (RBC) [Mass/Vol] 32.6 g/dL 32-36 [facility] Mean platelet volume determi nationOrdered By: Yesika Faust on 12-14-2024 Platelet mean volume (Bld) [Entitic vol] 10.6 fL 6.2-12.0 [facility] Monocyte percentageOrdered B y: Yesika Faust on 12-14-2024 Monocytes/100 WBC (Bld) 9.7 % 0-10 [facility] Neutrophil percentageOrdered By: Yesika Faust on 12-14-2024 Neutrophils/100 WBC (Bld) 51.4 % 47-70 [facility] Nucleated red blood cell per centageOrdered By: Yesika Faust on 12-14-2024 Nucleated RBC/100 WBC (Bld) [Ratio] 0 % 0-5 [facility] Platelet countOrdered By: Tad Faust on 12-14-2024 Platelets (Bld) [#/Vol] 268 10*3/uL 150-450 [facility] Potassium (Unsp spec) [Mass/ Vol]Ordered By: Yesika Faust on 12-14-2024 Potassium [Moles/Vol] 4.3 mmol/L 3.3-5.1 [facility] Potassium measurement (mass/ volume)Ordered By: Yesika Faust on 12-14-2024 Potassium (Unsp spec) [Mass/Vol] 4.3 mmol/L 3.3-5.1 [facility] RBC Auto (Bld) [#/Vol]Ordere d By: Yesika Faust on 12-14-2024 RBC (Bld) [#/Vol] 4.92 10*6/uL 4.2-5.4 [facility] Serum creatinine measurement (mass/volume)Ordered By: Yesika Faust on 12-14-2024 Creatinine [Mass/Vol] 0.76 mg/dL 0.70-1.20 [facility] Serum glucose measurement (m ass/volume)Ordered By: Yesika Faust on 12-14-2024 Glucose [Mass/Vol] 105 mg/dL High 70-99 [facility] Serum or plasma calcium amdi urement (mass/volume)Ordered By: Yesika Faust on 12-14-2024 Calcium [Mass/Vol] 9.7 mg/dL 7.6-11.0 [facility] Serum or plasma urea nitroge n measurement (mass/volume)Ordered By: Yesika Faust on 12-14-2024 Urea nitrogen [Mass/Vol] 23 mg/dL High 4-19 [facility] Sodium levelOrdered By: Jed denae Christianne on 12-14-2024 Sodium [Moles/Vol] 141 mmol/L 133-145 [facility] White blood cell (WBC) count Ordered By: Yesika Faust on 12-14-2024 WBC (Bld) [#/Vol] 8.2 10*3/uL 4.4-11.0 [facility] Absolute lymphocyte countOrd ered By: Yesika Faust on 11-14-2024 Lymphocytes Auto (Unsp spec) [#/Vol] 2.15 10*3/uL 0.83-4.51 [facility] Absolute neutrophil countOrd ered By: Yesika Faust on 11-14-2024 Neutrophils (Bld) [#/Vol] 4.8 10*3/uL 2.0-7.7 [facility] Automated lymphocyte count a s percentage of total leukocytesOrdered By: Yesika Faust on 11-14-2024 Lymphocytes/100 WBC Auto (Unsp spec) 25.7 % 19-41 [facility] BUN/creatinine ratioOrdered By: Yesika Faust on 11-14-2024 Urea nitrogen/Creatinine [Mass ratio] 36.8 mg/mg High 10-20 [facility] Basophil percentageOrdered B y: Yesika Faust on 11-14-2024 Basophils/100 WBC (Bld) 1.0 % 0-1 [facility] Carbon dioxide measurementOr dered By: Yesika Faust on 11-14-2024 CO2 [Moles/Vol] 27.6 mmol/L 22.0-29.0 [facility] Chloride measurementOrdered By: enriquetaauburnmacarena Faust on 11-14-2024 Chloride [Moles/Vol] 101 mmol/L 96-108 [facility] Eosinophil percentageOrdered By: Yesika Faust on 11-14-2024 Eosinophils/100 WBC (Bld) 7.9 % High 0-5 [facility] Erythrocyte distribution wid th (RBC) [Ratio]Ordered By: Yesika Faust on 11-14-2024 Erythrocyte distribution width (RBC) [Entitic vol] 46.1 fL High 35.1-43.9 [facility] Erythrocyte distribution wid th ratioOrdered By: Jedauburnmacarena Faust on 11-14-2024 Erythrocyte distribution width (RBC) [Ratio] 12.9 % 11.6-14.6 [facility] Erythrocyte distribution wid th standard deviationOrdered By: enriquetaauburnmacarena Faust on 11-14-2024 Erythrocyte distribution width (RBC) [Ratio] 46.1 fl High 35.1-43.9 [facility] GFR/1.73 sq M.predicted giorgio g non-blacks MDRD (S/P/Bld) [Vol rate/Area]Ordered By: Yesika Faust on 11-14-2024 Estimated GFR (MDRD) Non-Af Amer 86 >60 [facility] Comment on above: mL/min/1.73m2 CKD-EP I Creatinine Equation (2020) Glomerular filtration rate ( GFR) estimation/1.73 sq m using serum, plasma, or whole bOrdered By: Yesika Faust on 11-14-2024 GFR/1.73 sq M.predicted among non-blacks MDRD (S/P/Bld) [Vol rate/Area] 86 mL/min/{1.73_m2} >60 [facility] Comment on above: mL/min/1.73m2 CKD-EP I Creatinine Equation (2020) Hematocrit Auto (Bld) [Volum e fraction]Ordered By: ky Faust on 11-14-2024 Hematocrit (Bld) [Volume fraction] 46.9 % 37-47 [facility] Hemoglobin measurementOrdere d By: enriquetaauburnmacarena Faust on 11-14-2024 Hemoglobin (Bld) [Mass/Vol] 15.0 g/dL 12.0-15.0 [facility] Immature granulocytes/100 WB C Auto (Bld)Ordered By: enriquetaauburnmacarena Faust on 11-14-2024 Immature granulocytes/100 WBC (Bld) 0.500 % 0.0-0.9 [facility] Comment on above: IG% - Immature Granu locytes (promyelocytes, myelocytes and metamyelocytes) > 1% indicates that a LEFT SHIFT is Present. Lymphocytes Auto (Unsp spec) [#/Vol]Ordered By: [facility] Butterfieldrafael[facility] on 11-14-2024 Lymphocytes (Bld) [#/Vol] 2.15 10*3/uL 0.83-4.51 [facility] Lymphocytes/100 WBC Auto (Un sp spec)Ordered By: ky Faust on 11-14-2024 Lymphocytes/100 WBC (Bld) 25.7 % 19-41 [facility] MCV (mean corpuscular volume ) determinationOrdered By: Yesika Faust on 11-14-2024 MCV (RBC) [Entitic vol] 96.9 fL 81-99 [facility] Mean corpuscular hemoglobin (MCH) determinationOrdered By: enriquetaauburnmacarena Faust on 11-14-2024 MCH (RBC) [Entitic mass] 31.0 pg 27.0-32.0 [facility] Mean corpuscular hemoglobin concentration (MCHC) determinationOrdered By: enriquetaauburnmacarena Faust on 11-14-2024 MCHC (RBC) [Mass/Vol] 32.0 g/dL 32-36 [facility] Mean platelet volume determi nationOrdered By: Yesika Faust on 11-14-2024 Platelet mean volume (Bld) [Entitic vol] 10.4 fL 6.2-12.0 [facility] Monocyte percentageOrdered B y: Yesika Faust on 11-14-2024 Monocytes/100 WBC (Bld) 7.9 % 0-10 [facility] Neutrophil percentageOrdered By: Yesika Faust on 11-14-2024 Neutrophils/100 WBC (Bld) 57.0 % 47-70 [facility] Nucleated red blood cell per centageOrdered By: Yesika Faust on 11-14-2024 Nucleated RBC/100 WBC (Bld) [Ratio] 0 % 0-5 [facility] Platelet countOrdered By: Tad Faust on 11-14-2024 Platelets (Bld) [#/Vol] 269 10*3/uL 150-450 [facility] RBC Auto (Bld) [#/Vol]Ordere d By: Yesika Faust on 11-14-2024 RBC (Bld) [#/Vol] 4.84 10*6/uL 4.2-5.4 [facility] Serum creatinine measurement (mass/volume)Ordered By: Yesika Faust on 11-14-2024 Creatinine [Mass/Vol] 0.65 mg/dL Low 0.70-1.20 [facility] Serum glucose measurement (m ass/volume)Ordered By: Yesika Faust on 11-14-2024 Glucose [Mass/Vol] 97 mg/dL 70-99 [facility] Serum or plasma anion gap de termination (moles/volume)Ordered By: Yesika Faust on 11-14-2024 Anion gap [Moles/Vol] 12 mmol/L 5-15 [facility] Serum or plasma calcium madi urement (mass/volume)Ordered By: Yesika Faust on 11-14-2024 Calcium [Mass/Vol] 9.4 mg/dL 7.6-11.0 [facility] Serum or plasma potassium me asurementOrdered By: Yesika Faust on 11-14-2024 Potassium [Moles/Vol] 4.3 mmol/L 3.3-5.1 [facility] Comment on above: Hemolysis present, R esults could be affected. Serum or plasma sodium measu rement (moles/volume)Ordered By: Yesika Faust on 11-14-2024 Sodium [Moles/Vol] 141 mmol/L 133-145 [facility] Serum or plasma urea nitroge n measurement (mass/volume)Ordered By: Yesika Faust on 11-14-2024 Urea nitrogen [Mass/Vol] 24 mg/dL High 4-19 [facility] White blood cell (WBC) count Ordered By: Yesika Faust on 11-14-2024 WBC (Bld) [#/Vol] 8.4 10*3/uL 4.4-11.0 [facility] Absolute lymphocyte countOrd ered By: Yesika Faust on 10-17-2024 Lymphocytes Auto (Unsp spec) [#/Vol] 1.81 10*3/uL 0.83-4.51 [facility] Absolute neutrophil countOrd ered By: Yesika Faust on 10-17-2024 Neutrophils (Bld) [#/Vol] 3.3 10*3/uL 2.0-7.7 [facility] Automated lymphocyte count a s percentage of total leukocytesOrdered By: Yesika Faust on 10-17-2024 Lymphocytes/100 WBC Auto (Unsp spec) 26.5 % 19-41 [facility] Basophil percentageOrdered B y: Yesika Faust on 10-17-2024 Basophils/100 WBC (Bld) 0.7 % 0-1 [facility] Bilirubin directOrdered By: Yesika Faust on 10-17-2024 Bilirubin.direct [Mass/Vol] 0.09 mg/dL 0.00-0.30 [facility] Bilirubin, totalOrdered By: Yesika Faust on 10-17-2024 Bilirubin [Mass/Vol] 0.20 mg/dL 0.20-1.00 [facility] Comment on above: For patients on eltr ombopag therapy, use of Dimension [place] TBIL is not recommended. Blood urea nitrogen (BUN)/cr eatinine ratioOrdered By: Yesika Faust on 10-17-2024 Urea nitrogen/Creatinine [Mass ratio] 49.3 mg/mg High 10-20 [facility] Carbon dioxide measurementOr dered By: Yesika Faust on 10-17-2024 CO2 [Moles/Vol] 29.0 mmol/L 21.0-32.0 [facility] Chloride measurementOrdered By: Yesika Faust on 10-17-2024 Chloride [Moles/Vol] 106 mmol/L 98-107 [facility] Eosinophil percentageOrdered By: Yesika Faust on 10-17-2024 Eosinophils/100 WBC (Bld) 14.6 % High 0-5 [facility] Erythrocyte distribution wid th (RBC) [Ratio]Ordered By: Yesika Faust on 10-17-2024 Erythrocyte distribution width (RBC) [Entitic vol] 46.3 fL High 35.1-43.9 [facility] Erythrocyte distribution wid th ratioOrdered By: enriquetaauburnmacarena Faust on 10-17-2024 Erythrocyte distribution width (RBC) [Ratio] 13.0 % 11.6-14.6 [facility] Erythrocyte distribution wid th standard deviationOrdered By: enriquetaauburnmacarena Faust on 10-17-2024 Erythrocyte distribution width (RBC) [Ratio] 46.3 fl High 35.1-43.9 [facility] Estimated glomerular filtrat ion rate (GFR) AmericanOrdered By: Yesika Faust on 10-17-2024 Estimated GFR (MDRD) Amer 120 mL/min >60 [facility] Comment on above: GFR Calc Glomerular filtration rate ( GFR) estimationOrdered By: Yesika Faust on 10-17-2024 Estimated GFR (MDRD) Non-Af Amer 99 mL/min >60 [facility] Comment on above: Non- GFR Calc GFR/1.73 sq M.predicted among non-blacks MDRD (S/P/Bld) [Vol rate/Area] 99 mL/min/{1.73_m2} >60 [facility] Comment on above: Non- GFR Calc Glucose measurementOrdered B y: Yesika Faust on 10-17-2024 Glucose [Mass/Vol] 86 mg/dL 74-106 [facility] Hematocrit Auto (Bld) [Volum e fraction]Ordered By: Yesika Faust on 10-17-2024 Hematocrit (Bld) [Volume fraction] 41.4 % 37-47 [facility] Hemoglobin measurementOrdere d By: Jedsaeidmacarena Faust on 10-17-2024 Hemoglobin (Bld) [Mass/Vol] 13.5 g/dL 12.0-15.0 [facility] Immature granulocytes/100 WB C Auto (Bld)Ordered By: Yesika Faust on 10-17-2024 Immature granulocytes/100 WBC (Bld) 0.400 % 0.0-0.9 [facility] Comment on above: IG% - Immature Granu locytes (promyelocytes, myelocytes and metamyelocytes) > 1% indicates that a LEFT SHIFT is Present. Laboratory - Chemistry and C hemistry - challengeOrdered By: Yesika Faust on 10-17-2024 AST [Catalytic activity/Vol] 12 U/L Low 15-37 [facility] Lymphocytes Auto (Unsp spec) [#/Vol]Ordered By: Yesika Faust on 10-17-2024 Lymphocytes (Bld) [#/Vol] 1.81 10*3/uL 0.83-4.51 [facility] Lymphocytes/100 WBC Auto (Un sp spec)Ordered By: Yesika Faust on 10-17-2024 Lymphocytes/100 WBC (Bld) 26.5 % 19-41 [facility] MCV (mean corpuscular volume ) determinationOrdered By: Yesika Faust on 10-17-2024 MCV (RBC) [Entitic vol] 98.6 fL 81-99 [facility] Mean corpuscular hemoglobin (MCH) determinationOrdered By: Yesika Faust on 10-17-2024 MCH (RBC) [Entitic mass] 32.1 pg High 27.0-32.0 [facility] Mean corpuscular hemoglobin concentration (MCHC) determinationOrdered By: Yesika Faust on 10-17-2024 MCHC (RBC) [Mass/Vol] 32.6 g/dL 32-36 [facility] Mean platelet volume determi nationOrdered By: Yesika Faust on 10-17-2024 Platelet mean volume (Bld) [Entitic vol] 10.6 fL 6.2-12.0 [facility] Monocyte percentageOrdered B y: Yesika Faust on 10-17-2024 Monocytes/100 WBC (Bld) 9.5 % 0-10 [facility] Neutrophil percentageOrdered By: Yesika Faust on 10-17-2024 Neutrophils/100 WBC (Bld) 48.3 % 47-70 [facility] Nucleated red blood cell per centageOrdered By: Yesika Faust on 10-17-2024 Nucleated RBC/100 WBC (Bld) [Ratio] 0 % 0-5 [facility] Platelet countOrdered By: Tad Faust on 10-17-2024 Platelets (Bld) [#/Vol] 232 10*3/uL 150-450 [facility] Potassium measurementOrdered By: Yesika Faust on 10-17-2024 Potassium [Moles/Vol] 4.0 mmol/L 3.5-5.1 [facility] RBC Auto (Bld) [#/Vol]Ordere d By: Yesika Faust on 10-17-2024 RBC (Bld) [#/Vol] 4.20 10*6/uL 4.2-5.4 [facility] Serum anion gap measurementO rdered By: Yesika Faust on 10-17-2024 Anion gap [Moles/Vol] 5 mmol/L 5-15 [facility] Serum globulin measurementOr dered By: Yesika Faust on 10-17-2024 Globulin (S) [Mass/Vol] 3.2 g/dL 2.2-4.2 [facility] Serum or plasma alanine vela otransferase (ALT) measurementOrdered By: Yesika Faust on 10-17-2024 ALT [Catalytic activity/Vol] 19 U/L 13-56 [facility] Serum or plasma albumin madi urement (mass/volume)Ordered By: Yesika Faust on 10-17-2024 Albumin [Mass/Vol] 3.1 g/dL Low 3.2-5.0 [facility] Serum or plasma alkaline mariaelena sphatase measurementOrdered By: Tadky Faust on 10-17-2024 ALP [Catalytic activity/Vol] 108 U/L 45-117 [facility] Serum or plasma calcium madi urement (mass/volume)Ordered By: Yesika Faust on 10-17-2024 Calcium [Mass/Vol] 9.1 mg/dL 8.5-10.1 [facility] Serum or plasma creatinine m easurement (mass/volume)Ordered By: Yesika Faust on 10-17-2024 Creatinine [Mass/Vol] 0.61 mg/dL 0.55-1.02 [facility] Comment on above: The validity of the calculated GFR & GFRAA in patients over 70 years has not been determined. Clinical correlation is essential. Serum or plasma urea nitroge n measurement (mass/volume)Ordered By: Yesika Faust on 10-17-2024 Urea nitrogen [Mass/Vol] 30 mg/dL High 7-18 [facility] Sodium levelOrdered By: Jed denae Christianne on 10-17-2024 Sodium [Moles/Vol] 140 mmol/L 136-145 [facility] Total proteinOrdered By: Randall montsemacarena Faust on 10-17-2024 Protein [Mass/Vol] 6.3 g/dL Low 6.4-8.2 [facility] White blood cell (WBC) count Ordered By: Yesika Faust on 10-17-2024 WBC (Bld) [#/Vol] 6.8 10*3/uL 4.4-11.0 [facility] Bilirubin Test strip Ql (U)O rdered By: Yesika Faust on 10-14-2024 Bilirubin Ql (U) Negative Negative [facility] Epithelial cells.squamous LM Ql (Urine sed)Ordered By: Yesika Faust on 10-14-2024 Epithelial cells.squamous LM.HPF (Urine sed) [#/Area] 0 /[HPF] 5-10 [facility] Glucose Ql (U)Ordered By: Tad Faust on 10-14-2024 Urine Glucose (UA) Normal mg/dl Normal [facility] Ketones Test strip Ql (U)Ord ered By: Yesika Faust on 10-14-2024 Ketones Ql (U) Negative Negative [facility] Microscopic analysis of urin e for red blood cells (RBC)Ordered By: Yesika Faust on 10-14-2024 Microscopic analysis of urine for red blood cells (RBC) 0 SEEN /hpf 0-5 [facility] Urine RBC 0 SEEN /hpf 0-5 [facility] Mucus LM Ql (Urine sed)Order ed By: Yesika Faust on 10-14-2024 Mucus Ql (Urine sed) 0 SEEN /hpf [facility] Nitrite Test strip Ql (U)Ord ered By: Yesika Faust on 10-14-2024 Nitrite Ql (U) Positive High Negative [facility] Protein Test strip Ql (U)Ord ered By: Yesika Faust on 10-14-2024 Protein Ql (U) 15 mg/dl High Negative [facility] Squamous epithelial cells de tection in urine sediment by light microscopyOrdered By: Yesika Faust on 10-14-2024 Epithelial cells.squamous LM Ql (Urine sed) 0 SEEN /hpf 5-10 [facility] Triple phosphate crystals LM Ql (Urine sed)Ordered By: Yesika Faust on 10-14-2024 Urine Triple Phosphate Crystals 1+ /hpf [facility] Triple phosphate crystals de tection in urine sediment by light microscopyOrdered By: Yesika Faust on 10-14-2024 Triple phosphate crystals LM Ql (Urine sed) 1+ /hpf [facility] Urine blood detectionOrdered By: Yesika Faust on 10-14-2024 Urine Occult Blood Negative Negative [facility] Urine clarityOrdered By: Randall Faust on 10-14-2024 Clarity (U) Sl. Cloudy Clear [facility] Urine color determinationOrd ered By: Yesika Faust on 10-14-2024 Color (U) Yellow Yellow [facility] Urine cultureOrdered By: Randall Faust on 10-14-2024 Bacteria identified Cx Nom (U) Proteus mirabilis Abnormal [facility] Urine glucose detectionOrder ed By: Yesika Faust on 10-14-2024 Glucose Ql (U) Normal mg/dl Normal [facility] Urine leukocyte esterase det ection by dipstickOrdered By: Yesika Faust on 10-14-2024 Leukocyte esterase Test strip Ql (U) 25 /ul High Negative [facility] Urine pHOrdered By: Fernando Faust on 10-14-2024 pH (U) 9.0 [pH] 5.0 - 8.0 [facility] Urine sediment bacteria coun t by microscopy (number/high power field)Ordered By: Yesika Faust on 10-14-2024 Bacteria LM.HPF (Urine sed) [#/Area] 1 /[HPF] None Seen [facility] Urine specific gravity measu rementOrdered By: Yesika Faust on 10-14-2024 Specific gravity (U) [Rel density] 1.015 1.002-1.03 0 [facility] Urine urobilinogen measureme ntOrdered By: Yesika Faust on 10-14-2024 Urobilinogen Ql (U) Normal mg/dl Normal [facility] Urobilinogen Ql (U)Ordered B y: Yesika Faust on 10-14-2024 Urine Urobilinogen Normal mg/dl Normal [facility] White blood cell countOrdere d By: Yesika Faust on 10-14-2024 Urine WBC 0 SEEN /hpf 0-5 [facility] White blood cell count 0 SEEN /hpf 0-5 [facility] Absolute neutrophil countOrd ered By: Yesika Faust on 09-16-2024 Neutrophils (Bld) [#/Vol] 4.4 10*3/uL 2.0-7.7 [facility] Basophil percentageOrdered B y: Yesika Faust on 09-16-2024 Basophils/100 WBC (Bld) 0.7 % 0-1 [facility] Blood urea nitrogen (BUN)/cr eatinine ratioOrdered By: Yesika Faust on 09-16-2024 Urea nitrogen/Creatinine [Mass ratio] 40.5 mg/mg High 10-20 [facility] Carbon dioxide measurementOr dered By: Yesika Faust on 09-16-2024 CO2 [Moles/Vol] 28.0 mmol/L 21.0-32.0 [facility] Chloride measurementOrdered By: Yesika Faust on 09-16-2024 Chloride [Moles/Vol] 106 mmol/L 98-107 [facility] Eosinophil percentageOrdered By: Yesika Faust on 09-16-2024 Eosinophils/100 WBC (Bld) 3.0 % 0-5 [facility] Erythrocyte distribution wid th (RBC) [Ratio]Ordered By: Yesika Faust on 09-16-2024 Erythrocyte distribution width (RBC) [Entitic vol] 48.3 fL High 35.1-43.9 [facility] Erythrocyte distribution wid th ratioOrdered By: Yesika Faust on 09-16-2024 Erythrocyte distribution width (RBC) [Ratio] 13.2 % 11.6-14.6 [facility] Estimated glomerular filtrat ion rate (GFR) AmericanOrdered By: Yesika Faust on 09-16-2024 Estimated GFR (MDRD) Amer 162 mL/min >60 [facility] Comment on above: GFR Calc Glomerular filtration rate ( GFR) estimationOrdered By: Yesika Faust on 09-16-2024 Estimated GFR (MDRD) Non-Af Amer 134 mL/min >60 [facility] Comment on above: Non- GFR Calc Glucose measurementOrdered B y: Yesika Faust on 09-16-2024 Glucose [Mass/Vol] 89 mg/dL 74-106 [facility] Hematocrit Auto (Bld) [Volum e fraction]Ordered By: Yesika Faust on 09-16-2024 Hematocrit (Bld) [Volume fraction] 38.9 % 37-47 [facility] Hemoglobin measurementOrdere d By: Yesika Faust on 09-16-2024 Hemoglobin (Bld) [Mass/Vol] 12.4 g/dL 12.0-15.0 [facility] Immature granulocytes/100 WB C Auto (Bld)Ordered By: Yesika Faust on 09-16-2024 Immature granulocytes/100 WBC (Bld) 0.300 % 0.0-0.9 [facility] Comment on above: IG% - Immature Granu locytes (promyelocytes, myelocytes and metamyelocytes) > 1% indicates that a LEFT SHIFT is Present. Lymphocytes Auto (Unsp spec) [#/Vol]Ordered By: Yesika Faust on 09-16-2024 Lymphocytes (Bld) [#/Vol] 1.59 10*3/uL 0.83-4.51 [facility] Lymphocytes/100 WBC Auto (Un sp spec)Ordered By: Yesika Faust on 09-16-2024 Lymphocytes/100 WBC (Bld) 23.1 % 19-41 [facility] MCV (mean corpuscular volume ) determinationOrdered By: Yesika Faust on 09-16-2024 MCV (RBC) [Entitic vol] 98.7 fL 81-99 [facility] Mean corpuscular hemoglobin (MCH) determinationOrdered By: enriquetaauburnmacarena Faust on 09-16-2024 MCH (RBC) [Entitic mass] 31.5 pg 27.0-32.0 [facility] Mean corpuscular hemoglobin concentration (MCHC) determinationOrdered By: enriquetaauburnmacarena Faust on 09-16-2024 MCHC (RBC) [Mass/Vol] 31.9 g/dL Low 32-36 [facility] Mean platelet volume determi nationOrdered By: ky Faust on 09-16-2024 Platelet mean volume (Bld) [Entitic vol] 10.6 fL 6.2-12.0 [facility] Monocyte percentageOrdered B y: Yesika Faust on 09-16-2024 Monocytes/100 WBC (Bld) 9.6 % 0-10 [facility] Neutrophil percentageOrdered By: enriquetaauburnmacarena Faust on 09-16-2024 Neutrophils/100 WBC (Bld) 63.3 % 47-70 [facility] Nucleated red blood cell per centageOrdered By: Yesika Faust on 09-16-2024 Nucleated RBC/100 WBC (Bld) [Ratio] 0 % 0-5 [facility] Platelet countOrdered By: Tad Faust on 09-16-2024 Platelets (Bld) [#/Vol] 241 10*3/uL 150-450 [facility] Potassium measurementOrdered By: Yesika Faust on 09-16-2024 Potassium [Moles/Vol] 3.8 mmol/L 3.5-5.1 [facility] RBC Auto (Bld) [#/Vol]Ordere d By: Yesika Faust on 09-16-2024 RBC (Bld) [#/Vol] 3.94 10*6/uL Low 4.2-5.4 [facility] Serum anion gap measurementO rdered By: Yesika Faust on 09-16-2024 Anion gap [Moles/Vol] 5 mmol/L 5-15 [facility] Serum or plasma calcium madi urement (mass/volume)Ordered By: Yesika Faust on 09-16-2024 Calcium [Mass/Vol] 8.8 mg/dL 8.5-10.1 [facility] Serum or plasma creatinine m easurement (mass/volume)Ordered By: Yesika Faust on 09-16-2024 Creatinine [Mass/Vol] 0.47 mg/dL Low 0.55-1.02 [facility] Comment on above: The validity of the calculated GFR & GFRAA in patients over 70 years has not been determined. Clinical correlation is essential. Serum or plasma urea nitroge n measurement (mass/volume)Ordered By: Yesika Faust on 09-16-2024 Urea nitrogen [Mass/Vol] 19 mg/dL High 7-18 [facility] Sodium levelOrdered By: Jed Faust on 09-16-2024 Sodium [Moles/Vol] 139 mmol/L 136-145 [facility] White blood cell (WBC) count Ordered By: Yesika Faust on 09-16-2024 WBC (Bld) [#/Vol] 6.9 10*3/uL 4.4-11.0 [facility] Absolute neutrophil countOrd ered By: Yesika Faust on 08-16-2024 Neutrophils (Bld) [#/Vol] 3.4 10*3/uL 2.0-7.7 [facility] Basophil percentageOrdered B y: Yesika Faust on 08-16-2024 Basophils/100 WBC (Bld) 0.7 % 0-1 [facility] Blood urea nitrogen (BUN)/cr eatinine ratioOrdered By: Yesika Faust on 08-16-2024 Urea nitrogen/Creatinine [Mass ratio] 35.8 mg/mg High 10-20 [facility] Carbon dioxide measurementOr dered By: Yesika Faust on 08-16-2024 CO2 [Moles/Vol] 28.0 mmol/L 21.0-32.0 [facility] Chloride measurementOrdered By: enriquetaauburnmacarena Faust on 08-16-2024 Chloride [Moles/Vol] 110 mmol/L High 98-107 [facility] Eosinophil percentageOrdered By: Yesika Faust on 08-16-2024 Eosinophils/100 WBC (Bld) 3.1 % 0-5 [facility] Erythrocyte distribution wid th (RBC) [Ratio]Ordered By: Yesika Faust on 08-16-2024 Erythrocyte distribution width (RBC) [Entitic vol] 50.8 fL High 35.1-43.9 [facility] Erythrocyte distribution wid th ratioOrdered By: Yesika Faust on 08-16-2024 Erythrocyte distribution width (RBC) [Ratio] 14.0 % 11.6-14.6 [facility] Estimated glomerular filtrat ion rate (GFR) AmericanOrdered By: Yesika Faust on 08-16-2024 Estimated GFR (MDRD) Amer 141 mL/min >60 [facility] Comment on above: GFR Calc Glomerular filtration rate ( GFR) estimationOrdered By: Yesika Faust on 08-16-2024 Estimated GFR (MDRD) Non-Af Amer 116 mL/min >60 [facility] Comment on above: Non- GFR Calc Glucose measurementOrdered B y: Yesika Faust on 08-16-2024 Glucose [Mass/Vol] 85 mg/dL 74-106 [facility] Hematocrit Auto (Bld) [Volum e fraction]Ordered By: Yesika Faust on 08-16-2024 Hematocrit (Bld) [Volume fraction] 41.2 % 37-47 [facility] Hemoglobin measurementOrdere d By: Yesika Faust on 08-16-2024 Hemoglobin (Bld) [Mass/Vol] 12.9 g/dL 12.0-15.0 [facility] Immature granulocytes/100 WB C Auto (Bld)Ordered By: ky aFust on 08-16-2024 Immature granulocytes/100 WBC (Bld) 0.300 % 0.0-0.9 [facility] Comment on above: IG% - Immature Granu locytes (promyelocytes, myelocytes and metamyelocytes) > 1% indicates that a LEFT SHIFT is Present. Lymphocytes Auto (Unsp spec) [#/Vol]Ordered By: Yesika Faust on 08-16-2024 Lymphocytes (Bld) [#/Vol] 1.61 10*3/uL 0.83-4.51 [facility] Lymphocytes/100 WBC Auto (Un sp spec)Ordered By: Yesika Faust on 08-16-2024 Lymphocytes/100 WBC (Bld) 27.4 % 19-41 [facility] MCV (mean corpuscular volume ) determinationOrdered By: Yesika Faust on 08-16-2024 MCV (RBC) [Entitic vol] 99.0 fL 81-99 [facility] Mean corpuscular hemoglobin (MCH) determinationOrdered By: Yesika Faust on 08-16-2024 MCH (RBC) [Entitic mass] 31.0 pg 27.0-32.0 [facility] Mean corpuscular hemoglobin concentration (MCHC) determinationOrdered By: Yesika Faust on 08-16-2024 MCHC (RBC) [Mass/Vol] 31.3 g/dL Low 32-36 [facility] Mean platelet volume determi nationOrdered By: Yesika Faust on 08-16-2024 Platelet mean volume (Bld) [Entitic vol] 10.8 fL 6.2-12.0 [facility] Monocyte percentageOrdered B y: Yesika Faust on 08-16-2024 Monocytes/100 WBC (Bld) 10.5 % High 0-10 [facility] Neutrophil percentageOrdered By: Tadenriquetadenae Scoutandreea on 08-16-2024 Neutrophils/100 WBC (Bld) 58.0 % 47-70 [facility] Nucleated red blood cell per centageOrdered By: Tadneriquetasaeidmacarena Butterfieldkathierafaela on 08-16-2024 Nucleated RBC/100 WBC (Bld) [Ratio] 0 % 0-5 [facility] Platelet countOrdered By: Tad ky Scoutandreea on 08-16-2024 Platelets (Bld) [#/Vol] 242 10*3/uL 150-450 [facility] Potassium measurementOrdered By: Yesika Faust on 08-16-2024 Potassium [Moles/Vol] 3.9 mmol/L 3.5-5.1 [facility] RBC Auto (Bld) [#/Vol]Ordere d By: Jedsaeidmacarena Butterfieldandreea on 08-16-2024 RBC (Bld) [#/Vol] 4.16 10*6/uL Low 4.2-5.4 [facility] Serum anion gap measurementO rdered By: Yesika Butterfieldkathierafaela on 08-16-2024 Anion gap [Moles/Vol] 4 mmol/L Low 5-15 [facility] Serum or plasma calcium madi urement (mass/volume)Ordered By: Yesika Faust on 08-16-2024 Calcium [Mass/Vol] 8.9 mg/dL 8.5-10.1 [facility] Serum or plasma creatinine m easurement (mass/volume)Ordered By: Yesika Faust on 08-16-2024 Creatinine [Mass/Vol] 0.53 mg/dL Low 0.55-1.02 [facility] Comment on above: The validity of the calculated GFR & GFRAA in patients over 70 years has not been determined. Clinical correlation is essential. Serum or plasma urea nitroge n measurement (mass/volume)Ordered By: Yesika Faust on 08-16-2024 Urea nitrogen [Mass/Vol] 19 mg/dL High 7-18 [facility] Sodium levelOrdered By: Jed Faust on 08-16-2024 Sodium [Moles/Vol] 142 mmol/L 136-145 [facility] White blood cell (WBC) count Ordered By: Yesika Faust on 08-16-2024 WBC (Bld) [#/Vol] 5.9 10*3/uL 4.4-11.0 [facility] Absolute lymphocyte countOrd ered By: [facility] Butterfieldrafaela on 11-17-2023 Lymphocytes Auto (Unsp spec) [#/Vol] 1.64 10*3/uL 0.83-4.51 [facility] Automated lymphocyte count a s percentage of total leukocytesOrdered By: Yesika Faust on 11-17-2023 Lymphocytes/100 WBC Auto (Unsp spec) 26.6 % 19-41 [facility] Basophil percentageOrdered B y: Yesika Faust on 11-17-2023 Basophils/100 WBC (Bld) 0.6 % 0-1 [facility] Chloride [Moles/Vol] 109 mmol/L 98-107 [facility] Eosinophils/100 WBC (Bld) 1.8 % 0-5 [facility] Glucose [Mass/Vol] 91 mg/dL 74-106 [facility] Hemoglobin (Bld) [Mass/Vol] 12.9 g/dL 12.0-15.0 [facility] Monocytes/100 WBC (Bld) 9.4 % 0-10 [facility] Neutrophils (Bld) [#/Vol] 3.8 10*3/uL 2.0-7.7 [facility] Neutrophils/100 WBC (Bld) 61.1 % 47-70 [facility] Potassium [Moles/Vol] 3.8 mmol/L 3.5-5.1 [facility] Sodium [Moles/Vol] 140 mmol/L 136-145 [facility] WBC (Bld) [#/Vol] 6.2 10*3/uL 4.4-11.0 [facility] Determination of erythrocyte mean corpuscular volume (MCV)Ordered By: Yesika Faust on 11-17-2023 MCV (RBC) [Entitic vol] 91.8 fL 81-99 [facility] Erythrocyte distribution wid th ratioOrdered By: [facility] Faust on 11-17-2023 Erythrocyte distribution width (RBC) [Ratio] 14.3 % 11.6-14.6 [facility] Erythrocyte distribution wid th standard deviationOrdered By: [facility] Faust on 11-17-2023 Erythrocyte distribution width (RBC) [Entitic vol] 48.0 fL 35.1-43.9 [facility] Hematocrit Auto (Bld) [Volum e fraction]Ordered By: [facility] Butterfieldrafaela on 11-17-2023 Hematocrit (Bld) [Volume fraction] 39.3 % 37-47 [facility] Immature granulocytes/100 WB C Auto (Bld)Ordered By: [facility] Scoutrafaela on 11-17-2023 Immature granulocytes/100 WBC (Bld) 0.500 % 0.0-0.9 [facility] Comment on above: IG% - Immature Granu locytes (promyelocytes, myelocytes and metamyelocytes) > 1% indicates that a LEFT SHIFT is Present. Laboratory - Chemistry and C hemistry - challengeOrdered By: Yesika Faust on 11-17-2023 CO2 [Moles/Vol] 28.0 mmol/L 21.0-32.0 [facility] Urea nitrogen/Creatinine [Mass ratio] 18.6 mg/mg 10-20 [facility] Laboratory - Hematology and Cell countsOrdered By: enriquetaauburnmacarena Faust on 11-17-2023 MCH (RBC) [Entitic mass] 30.1 pg 27.0-32.0 [facility] MCHC (RBC) [Mass/Vol] 32.8 g/dL 32-36 [facility] Nucleated RBC/100 WBC (Bld) [Ratio] 0 % 0-5 [facility] Platelet mean volume (Bld) [Entitic vol] 9.9 fL 6.2-12.0 [facility] Platelets (Bld) [#/Vol] 230 10*3/uL 150-450 [facility] No Panel InformationOrdered By: Yesika Faust on 11-17-2023 Estimated GFR (MDRD) Amer 94 mL/min >60 [facility] Comment on above: GFR Calc Estimated GFR (MDRD) Non-Af Amer 78 mL/min >60 [facility] Comment on above: Non- GFR Calc RBC Auto (Bld) [#/Vol]Ordere d By: Yesika Faust on 11-17-2023 RBC (Bld) [#/Vol] 4.28 10*6/uL 4.2-5.4 [facility] Serum or plasma calcium madi urement (mass/volume)Ordered By: Yesika Faust on 11-17-2023 Calcium [Mass/Vol] 9.2 mg/dL 8.5-10.1 [facility] Serum or plasma creatinine m easurement (mass/volume)Ordered By: Yesika Faust on 11-17-2023 Creatinine [Mass/Vol] 0.75 mg/dL 0.55-1.02 [facility] Comment on above: The validity of the calculated GFR & GFRAA in patients over 70 years has not been determined. Clinical correlation is essential. Serum or plasma urea nitroge n measurement (mass/volume)Ordered By: Yesika Faust on 11-17-2023 Urea nitrogen [Mass/Vol] 14 mg/dL 7-18 [facility] Thin prep Papanicolaou smear with manual screeningOrdered By: ky Faust on 11-17-2023 Thin prep Papanicolaou smear with manual screening 3 5-15 [facility] Absolute lymphocyte countOrd ered By: Yesika Faust on 08-18-2023 Lymphocytes Auto (Unsp spec) [#/Vol] 1.67 10*3/uL 0.83-4.51 [facility] Basophil percentageOrdered B y: Yesika Faust on 08-18-2023 Basophils/100 WBC (Bld) 0.7 % 0-1 [facility] Chloride [Moles/Vol] 109 mmol/L 98-107 [facility] Eosinophils/100 WBC (Bld) 2.8 % 0-5 [facility] Glucose [Mass/Vol] 89 mg/dL 74-106 [facility] Neutrophils (Bld) [#/Vol] 3.1 10*3/uL 2.0-7.7 [facility] Neutrophils/100 WBC (Bld) 56.1 % 47-70 [facility] Potassium [Moles/Vol] 4.0 mmol/L 3.5-5.1 [facility] Sodium [Moles/Vol] 141 mmol/L 136-145 [facility] WBC (Bld) [#/Vol] 5.4 10*3/uL 4.4-11.0 [facility] Blood erythrocytes count (nu mber/volume)Ordered By: Yesika Faust on 08-18-2023 RBC (Bld) [#/Vol] 4.55 10*6/uL 4.2-5.4 [facility] Blood hemoglobin measurement (mass/volume)Ordered By: Yesika Faust on 08-18-2023 Hemoglobin (Bld) [Mass/Vol] 12.9 g/dL 12.0-15.0 [facility] Blood lymphocytes/100 leukoc ytesOrdered By: Yesika Faust on 08-18-2023 Lymphocytes/100 WBC (Bld) 30.8 % 19-41 [facility] Blood monocytes/100 leukocyt esOrdered By: Yesika Faust on 08-18-2023 Monocytes/100 WBC (Bld) 9.4 % 0-10 [facility] Blood platelet mean volumeOr dered By: Yesika Faust on 08-18-2023 Platelet mean volume (Bld) [Entitic vol] 10.4 fL 6.2-12.0 [facility] Determination of erythrocyte mean corpuscular volume (MCV)Ordered By: Yesika Faust on 08-18-2023 MCV (RBC) [Entitic vol] 89.5 fL 81-99 [facility] Hematocrit Auto (Bld) [Volum e fraction]Ordered By: Yesika Faust on 08-18-2023 Hematocrit (Bld) [Volume fraction] 40.7 % 37-47 [facility] Laboratory - Chemistry and C hemistry - challengeOrdered By: Yesika Faust on 08-18-2023 CO2 [Moles/Vol] 29.0 mmol/L 21.0-32.0 [facility] Urea nitrogen/Creatinine [Mass ratio] 16.6 mg/mg 10-20 [facility] Laboratory - Hematology and Cell countsOrdered By: Yesika Faust on 08-18-2023 Erythrocyte distribution width (RBC) [Entitic vol] 45.5 fL 35.1-43.9 [facility] Erythrocyte distribution width (RBC) [Ratio] 13.9 % 11.6-14.6 [facility] Immature granulocytes/100 WBC (Bld) 0.200 % 0.0-0.9 [facility] Comment on above: IG% - Immature Granu locytes (promyelocytes, myelocytes and metamyelocytes) > 1% indicates that a LEFT SHIFT is Present. MCH (RBC) [Entitic mass] 28.4 pg 27.0-32.0 [facility] Nucleated RBC/100 WBC (Bld) [Ratio] 0 % 0-5 [facility] MCHC Auto (RBC) [Mass/Vol]Or dered By: Yesika Faust on 08-18-2023 MCHC (RBC) [Mass/Vol] 31.7 g/dL 32-36 [facility] No Panel InformationOrdered By: Yesika Faust on 08-18-2023 Estimated GFR (MDRD) Amer 109 mL/min >60 [facility] Comment on above: GFR Calc Estimated GFR (MDRD) Non-Af Amer 90 mL/min >60 [facility] Comment on above: Non- GFR Calc Platelets bldOrdered By: Randall Faust on 08-18-2023 Platelets (Bld) [#/Vol] 221 10*3/uL 150-450 [facility] Serum or plasma calcium madi urement (mass/volume)Ordered By: Yeiska Faust on 08-18-2023 Calcium [Mass/Vol] 8.8 mg/dL 8.5-10.1 [facility] Serum or plasma creatinine m easurement (mass/volume)Ordered By: Yesika Faust on 08-18-2023 Creatinine [Mass/Vol] 0.66 mg/dL 0.55-1.02 [facility] Comment on above: The validity of the calculated GFR & GFRAA in patients over 70 years has not been determined. Clinical correlation is essential. Serum or plasma urea nitroge n measurement (mass/volume)Ordered By: Yesika Faust on 08-18-2023 Urea nitrogen [Mass/Vol] 11 mg/dL 7-18 [facility] Thin prep Papanicolaou smear with manual screeningOrdered By: Yesika Faust on 08-18-2023 Thin prep Papanicolaou smear with manual screening 3 5-15 [facility] Absolute lymphocyte countOrd ered By: enriquetaauburnmacarena Faust on 05-19-2023 Lymphocytes Auto (Unsp spec) [#/Vol] 1.86 10*3/uL 0.83-4.51 [facility] Basophil percentageOrdered B y: Yesika Faust on 05-19-2023 Basophils/100 WBC (Bld) 0.8 % 0-1 [facility] Chloride [Moles/Vol] 107 mmol/L 98-107 [facility] Eosinophils/100 WBC (Bld) 1.5 % 0-5 [facility] Glucose [Mass/Vol] 125 mg/dL 74-106 [facility] Comment on above: Fasting Glucose resu lt from 100 to 125 mg/dL suggests IMPAIRED HOMEOSTASIS per A.D.A. criteria. Neutrophils (Bld) [#/Vol] 3.4 10*3/uL 2.0-7.7 [facility] Neutrophils/100 WBC (Bld) 55.5 % 47-70 [facility] Potassium [Moles/Vol] 3.6 mmol/L 3.5-5.1 [facility] Sodium [Moles/Vol] 139 mmol/L 136-145 [facility] WBC (Bld) [#/Vol] 6.2 10*3/uL 4.4-11.0 [facility] Blood erythrocytes count (nu mber/volume)Ordered By: Yesika Faust on 05-19-2023 RBC (Bld) [#/Vol] 4.24 10*6/uL 4.2-5.4 [facility] Blood hemoglobin measurement (mass/volume)Ordered By: Yesika Faust on 05-19-2023 Hemoglobin (Bld) [Mass/Vol] 11.7 g/dL 12.0-15.0 [facility] Blood lymphocytes/100 leukoc ytesOrdered By: [facility] Fa[facility] on 05-19-2023 Lymphocytes/100 WBC (Bld) 30.1 % 19-41 [facility] Blood monocytes/100 leukocyt esOrdered By: [facility] Scoutrafaela on 05-19-2023 Monocytes/100 WBC (Bld) 11.8 % 0-10 [facility] Blood platelet mean volumeOr dered By: [facility] Scoutrafaela on 05-19-2023 Platelet mean volume (Bld) [Entitic vol] 10.5 fL 6.2-12.0 [facility] Determination of erythrocyte mean corpuscular volume (MCV)Ordered By: [facility] Scoutrafaela on 05-19-2023 MCV (RBC) [Entitic vol] 90.3 fL 81-99 [facility] Hematocrit Auto (Bld) [Volum e fraction]Ordered By: [facility] Butterfieldrafaela on 05-19-2023 Hematocrit (Bld) [Volume fraction] 38.3 % 37-47 [facility] Laboratory - Chemistry and C hemistry - challengeOrdered By: [facility] Butterfieldrafaela on 05-19-2023 CO2 [Moles/Vol] 29.0 mmol/L 21.0-32.0 [facility] Urea nitrogen/Creatinine [Mass ratio] 21.6 mg/mg 10-20 [facility] Laboratory - Hematology and Cell countsOrdered By: [facility] Scoutrafaela on 05-19-2023 Erythrocyte distribution width (RBC) [Entitic vol] 50.2 fL 35.1-43.9 [facility] Erythrocyte distribution width (RBC) [Ratio] 15.2 % 11.6-14.6 [facility] Immature granulocytes/100 WBC (Bld) 0.300 % 0.0-0.9 [facility] Comment on above: IG% - Immature Granu locytes (promyelocytes, myelocytes and metamyelocytes) > 1% indicates that a LEFT SHIFT is Present. MCH (RBC) [Entitic mass] 27.6 pg 27.0-32.0 [facility] Nucleated RBC/100 WBC (Bld) [Ratio] 0 % 0-5 [facility] MCHC Auto (RBC) [Mass/Vol]Or dered By: Yesika Faust on 05-19-2023 MCHC (RBC) [Mass/Vol] 30.5 g/dL 32-36 [facility] No Panel InformationOrdered By: Yesika Faust on 05-19-2023 Estimated GFR (MDRD) Amer 74 mL/min >60 [facility] Comment on above: GFR Calc Estimated GFR (MDRD) Non-Af Amer 61 mL/min >60 [facility] Comment on above: Non- GFR Calc Platelets bldOrdered By: Randall Faust on 05-19-2023 Platelets (Bld) [#/Vol] 234 10*3/uL 150-450 [facility] Serum or plasma calcium madi urement (mass/volume)Ordered By: Yesika Faust on 05-19-2023 Calcium [Mass/Vol] 8.7 mg/dL 8.5-10.1 [facility] Serum or plasma creatinine m easurement (mass/volume)Ordered By: Yesika Faust on 05-19-2023 Creatinine [Mass/Vol] 0.92 mg/dL 0.55-1.02 [facility] Comment on above: The validity of the calculated GFR & GFRAA in patients over 70 years has not been determined. Clinical correlation is essential. Serum or plasma urea nitroge n measurement (mass/volume)Ordered By: Yesika Faust on 05-19-2023 Urea nitrogen [Mass/Vol] 20 mg/dL 7-18 [facility] Thin prep Papanicolaou smear with manual screeningOrdered By: Yesika Faust on 05-19-2023 Thin prep Papanicolaou smear with manual screening 3 5-15 [facility] Absolute lymphocyte countOrd ered By: Yesika Faust on 02-17-2023 Lymphocytes Auto (Unsp spec) [#/Vol] 1.67 10*3/uL 0.83-4.51 [facility] Basophil percentageOrdered B y: Yesika Faust on 02-17-2023 Basophils/100 WBC (Bld) 0.8 % 0-1 [facility] Chloride [Moles/Vol] 109 mmol/L 98-107 [facility] Eosinophils/100 WBC (Bld) 2.8 % 0-5 [facility] Glucose [Mass/Vol] 94 mg/dL 74-106 [facility] Neutrophils (Bld) [#/Vol] 3.9 10*3/uL 2.0-7.7 [facility] Neutrophils/100 WBC (Bld) 60.0 % 47-70 [facility] Potassium [Moles/Vol] 3.7 mmol/L 3.5-5.1 [facility] Sodium [Moles/Vol] 141 mmol/L 136-145 [facility] WBC (Bld) [#/Vol] 6.5 10*3/uL 4.4-11.0 [facility] Blood erythrocytes count (nu mber/volume)Ordered By: Yesika Faust on 02-17-2023 RBC (Bld) [#/Vol] 4.33 10*6/uL 4.2-5.4 [facility] Blood hemoglobin measurement (mass/volume)Ordered By: Yesika Faust on 02-17-2023 Hemoglobin (Bld) [Mass/Vol] 11.4 g/dL 12.0-15.0 [facility] Blood lymphocytes/100 leukoc ytesOrdered By: Yesika Faust on 02-17-2023 Lymphocytes/100 WBC (Bld) 25.9 % 19-41 [facility] Blood monocytes/100 leukocyt esOrdered By: Yesika Faust on 02-17-2023 Monocytes/100 WBC (Bld) 10.2 % 0-10 [facility] Blood platelet mean volumeOr dered By: Yesika Faust on 02-17-2023 Platelet mean volume (Bld) [Entitic vol] 10.6 fL 6.2-12.0 [facility] Determination of erythrocyte mean corpuscular volume (MCV)Ordered By: Yesika Faust on 02-17-2023 MCV (RBC) [Entitic vol] 86.4 fL 81-99 [facility] Hematocrit Auto (Bld) [Volum e fraction]Ordered By: Yesika Faust on 02-17-2023 Hematocrit (Bld) [Volume fraction] 37.4 % 37-47 [facility] Laboratory - Chemistry and C hemistry - challengeOrdered By: Yesika Faust on 02-17-2023 CO2 [Moles/Vol] 28.0 mmol/L 21.0-32.0 [facility] Urea nitrogen/Creatinine [Mass ratio] 16.1 mg/mg 10-20 [facility] Laboratory - Hematology and Cell countsOrdered By: Yesika Faust on 02-17-2023 Erythrocyte distribution width (RBC) [Entitic vol] 56.0 fL 35.1-43.9 [facility] Erythrocyte distribution width (RBC) [Ratio] 17.5 % 11.6-14.6 [facility] Immature granulocytes/100 WBC (Bld) 0.300 % 0.0-0.9 [facility] Comment on above: IG% - Immature Granu locytes (promyelocytes, myelocytes and metamyelocytes) > 1% indicates that a LEFT SHIFT is Present. MCH (RBC) [Entitic mass] 26.3 pg 27.0-32.0 [facility] Nucleated RBC/100 WBC (Bld) [Ratio] 0 % 0-5 [facility] MCHC Auto (RBC) [Mass/Vol]Or dered By: Yesika Faust on 02-17-2023 MCHC (RBC) [Mass/Vol] 30.5 g/dL 32-36 [facility] No Panel InformationOrdered By: Yesika Faust on 02-17-2023 Estimated GFR (MDRD) Amer 106 mL/min >60 [facility] Comment on above: GFR Calc Estimated GFR (MDRD) Non-Af Amer 87 mL/min >60 [facility] Comment on above: Non- GFR Calc Platelets bldOrdered By: Randall Faust on 02-17-2023 Platelets (Bld) [#/Vol] 228 10*3/uL 150-450 [facility] Serum or plasma calcium madi urement (mass/volume)Ordered By: Yesika Faust on 02-17-2023 Calcium [Mass/Vol] 8.8 mg/dL 8.5-10.1 [facility] Serum or plasma creatinine m easurement (mass/volume)Ordered By: Yesika Faust on 02-17-2023 Creatinine [Mass/Vol] 0.68 mg/dL 0.55-1.02 [facility] Comment on above: The validity of the calculated GFR & GFRAA in patients over 70 years has not been determined. Clinical correlation is essential. Serum or plasma urea nitroge n measurement (mass/volume)Ordered By: Yesika Faust on 02-17-2023 Urea nitrogen [Mass/Vol] 11 mg/dL 7-18 [facility] Thin prep Papanicolaou smear with manual screeningOrdered By: Yesika Faust on 02-17-2023 Thin prep Papanicolaou smear with manual screening 4 5-15 [facility] Basophil percentageOrdered B y: Cl Tsang on 01-12-2023 Cholesterol [Mass/Vol] 112 mg/dL <200 [facility] Comment on above: <200 mg/dL Desirable 200-240 mg/dL Borderline >240 mg/dL High Risk Triglyceride [Mass/Vol] 110 mg/dL <199 [facility] Comment on above: The drugs N-Acetylcy steine and Metamizole may falsely depress this assay.Serum Triglycerides Reference Interval Normal <150 mg/dL Borderline high 150 - 199 mg/dL High 200 - 499 mg/dL Very High > or = 500 mg/dL Serum or plasma cholesterol in HDL measurement (mass/volume)Ordered By: Cl Tsang on 01-12-2023 Cholesterol in HDL [Mass/Vol] 50 mg/dL >40 [facility] Comment on above: The drugs N-Acetylcy steine and Metamizole may falsely depress this assay. Reference Range HDL <40 mg/dL Low HDL Cholesterol HDL >or= 60 mg/dL High HDL Cholesterol Serum or plasma cholesterol in VLDL measurement (mass/volume)Ordered By: Cl Tsang on 01-12-2023 Cholesterol in VLDL [Mass/Vol] 22 mg/dL 5-40 [facility] Serum or plasma low density lipoprotein (LDL) cholesterol measurement (mass/volume)Ordered By: Cl Tsang on 01-12-2023 Cholesterol in LDL [Mass/Vol] 40 mg/dL 0-130 [facility] Basophil percentageOrdered B y: Yesika Faust on 11-18-2022 Chloride [Moles/Vol] 108 mmol/L 98-107 [facility] Glucose [Mass/Vol] 114 mg/dL 74-106 [facility] Comment on above: Fasting Glucose resu lt from 100 to 125 mg/dL suggests IMPAIRED HOMEOSTASIS per A.D.A. criteria. Potassium [Moles/Vol] 4.1 mmol/L 3.5-5.1 [facility] Sodium [Moles/Vol] 142 mmol/L 136-145 [facility] WBC (Bld) [#/Vol] 5.6 10*3/uL 4.4-11.0 [facility] Blood erythrocytes count (nu mber/volume)Ordered By: Yesika Faust on 11-18-2022 RBC (Bld) [#/Vol] 3.89 10*6/uL 4.2-5.4 [facility] Blood hemoglobin measurement (mass/volume)Ordered By: Yesika Faust on 11-18-2022 Hemoglobin (Bld) [Mass/Vol] 10.5 g/dL 12.0-15.0 [facility] Blood platelet mean volumeOr dered By: Yesika Faust on 11-18-2022 Platelet mean volume (Bld) [Entitic vol] 10.7 fL 6.2-12.0 [facility] Determination of erythrocyte mean corpuscular volume (MCV)Ordered By: Yesika Faust on 11-18-2022 MCV (RBC) [Entitic vol] 88.4 fL 81-99 [facility] Hematocrit Auto (Bld) [Volum e fraction]Ordered By: Yesika Faust on 11-18-2022 Hematocrit (Bld) [Volume fraction] 34.4 % 37-47 [facility] Laboratory - Chemistry and C hemistry - challengeOrdered By: Yesika Faust on 11-18-2022 CO2 [Moles/Vol] 27.0 mmol/L 21.0-32.0 [facility] Urea nitrogen/Creatinine [Mass ratio] 18.9 mg/mg 10-20 [facility] Laboratory - Hematology and Cell countsOrdered By: Yesika Faust on 11-18-2022 Erythrocyte distribution width (RBC) [Entitic vol] 43.8 fL 35.1-43.9 [facility] Erythrocyte distribution width (RBC) [Ratio] 13.4 % 11.6-14.6 [facility] MCH (RBC) [Entitic mass] 27.0 pg 27.0-32.0 [facility] MCHC Auto (RBC) [Mass/Vol]Or dered By: Yesika Faust on 11-18-2022 MCHC (RBC) [Mass/Vol] 30.5 g/dL 32-36 [facility] No Panel InformationOrdered By: Yesika Faust on 11-18-2022 Estimated GFR (MDRD) Amer 115 mL/min >60 [facility] Comment on above: GFR Calc Estimated GFR (MDRD) Non-Af Amer 95 mL/min >60 [facility] Comment on above: Non- GFR Calc Platelets bldOrdered By: Randall Faust on 11-18-2022 Platelets (Bld) [#/Vol] 247 10*3/uL 150-450 [facility] Serum or plasma calcium madi urement (mass/volume)Ordered By: Yesika Faust on 11-18-2022 Calcium [Mass/Vol] 9.1 mg/dL 8.5-10.1 [facility] Serum or plasma creatinine m easurement (mass/volume)Ordered By: Yesika Faust on 11-18-2022 Creatinine [Mass/Vol] 0.64 mg/dL 0.55-1.02 [facility] Comment on above: The validity of the calculated GFR & GFRAA in patients over 70 years has not been determined. Clinical correlation is essential. Serum or plasma urea nitroge n measurement (mass/volume)Ordered By: Yesika Faust on 11-18-2022 Urea nitrogen [Mass/Vol] 12 mg/dL 7-18 [facility] Thin prep Papanicolaou smear with manual screeningOrdered By: Yesika Faust on 11-18-2022 Thin prep Papanicolaou smear with manual screening 7 5-15 [facility] Absolute lymphocyte countOrd ered By: Yesika Faust on 08-19-2022 Lymphocytes Auto (Unsp spec) [#/Vol] 1.60 10*3/uL 0.83-4.51 [facility] Basophil percentageOrdered B y: Yesika Faust on 08-19-2022 Basophils/100 WBC (Bld) 0.4 % 0-1 [facility] Chloride [Moles/Vol] 105 mmol/L 98-107 [facility] Eosinophils/100 WBC (Bld) 0.2 % 0-5 [facility] Glucose [Mass/Vol] 96 mg/dL 74-106 [facility] Neutrophils (Bld) [#/Vol] 3.3 10*3/uL 2.0-7.7 [facility] Neutrophils/100 WBC (Bld) 59.4 % 47-70 [facility] Potassium [Moles/Vol] 4.0 mmol/L 3.5-5.1 [facility] Sodium [Moles/Vol] 141 mmol/L 136-145 [facility] WBC (Bld) [#/Vol] 5.6 10*3/uL 4.4-11.0 [facility] Blood erythrocytes count (nu mber/volume)Ordered By: Yesika Faust on 08-19-2022 RBC (Bld) [#/Vol] 4.44 10*6/uL 4.2-5.4 [facility] Blood hemoglobin measurement (mass/volume)Ordered By: Yesika Fauts on 08-19-2022 Hemoglobin (Bld) [Mass/Vol] 13.0 g/dL 12.0-15.0 [facility] Blood lymphocytes/100 leukoc ytesOrdered By: Yesika Faust on 08-19-2022 Lymphocytes/100 WBC (Bld) 28.8 % 19-41 [facility] Blood monocytes/100 leukocyt esOrdered By: Yesika Faust on 08-19-2022 Monocytes/100 WBC (Bld) 11.0 % 0-10 [facility] Blood platelet mean volumeOr dered By: Yesika Faust on 08-19-2022 Platelet mean volume (Bld) [Entitic vol] 10.7 fL 6.2-12.0 [facility] Determination of erythrocyte mean corpuscular volume (MCV)Ordered By: Yesika Faust on 08-19-2022 MCV (RBC) [Entitic vol] 93.0 fL 81-99 [facility] Hematocrit Auto (Bld) [Volum e fraction]Ordered By: Yesika Faust on 08-19-2022 Hematocrit (Bld) [Volume fraction] 41.3 % 37-47 [facility] Laboratory - Chemistry and C hemistry - challengeOrdered By: Yesika Faust on 08-19-2022 CO2 [Moles/Vol] 29.0 mmol/L 21.0-32.0 [facility] Urea nitrogen/Creatinine [Mass ratio] 19.4 mg/mg 10-20 [facility] Laboratory - Hematology and Cell countsOrdered By: Yesika Faust on 08-19-2022 Erythrocyte distribution width (RBC) [Entitic vol] 44.3 fL 35.1-43.9 [facility] Erythrocyte distribution width (RBC) [Ratio] 12.9 % 11.6-14.6 [facility] Immature granulocytes/100 WBC (Bld) 0.200 % 0.0-0.9 [facility] Comment on above: IG% - Immature Granu locytes (promyelocytes, myelocytes and metamyelocytes) > 1% indicates that a LEFT SHIFT is Present. MCH (RBC) [Entitic mass] 29.3 pg 27.0-32.0 [facility] Nucleated RBC/100 WBC (Bld) [Ratio] 0 % 0-5 [facility] MCHC Auto (RBC) [Mass/Vol]Or dered By: Yesika Faust on 08-19-2022 MCHC (RBC) [Mass/Vol] 31.5 g/dL 32-36 [facility] No Panel InformationOrdered By: Yesika Faust on 08-19-2022 Estimated GFR (MDRD) Amer 99 mL/min >60 [facility] Comment on above: GFR Calc Estimated GFR (MDRD) Non-Af Amer 82 mL/min >60 [facility] Comment on above: Non- GFR Calc Platelets bldOrdered By: Randallrafaela sheppard Christianne on 08-19-2022 Platelets (Bld) [#/Vol] 216 10*3/uL 150-450 [facility] Serum or plasma calcium madi urement (mass/volume)Ordered By: Yesika Faust on 08-19-2022 Calcium [Mass/Vol] 9.4 mg/dL 8.5-10.1 [facility] Serum or plasma creatinine m easurement (mass/volume)Ordered By: Yesika Faust on 08-19-2022 Creatinine [Mass/Vol] 0.72 mg/dL 0.55-1.02 [facility] Comment on above: The validity of the calculated GFR & GFRAA in patients over 70 years has not been determined. Clinical correlation is essential. Serum or plasma urea nitroge n measurement (mass/volume)Ordered By: Jedsaeidmacarena Faust on 08-19-2022 Urea nitrogen [Mass/Vol] 14 mg/dL 7-18 [facility] Thin prep Papanicolaou smear with manual screeningOrdered By: Yesika Faust on 08-19-2022 Thin prep Papanicolaou smear with manual screening 7 5-15 [facility] Absolute lymphocyte counton 05-20-2022 Lymphocytes Auto (Unsp spec) [#/Vol] 1.88 10*3/uL 0.83-4.51 [facility] Work Phone: Basophil percentageon 2021 Basophils/100 WBC (Bld) 0.7 % 0-1 [facility] Work Phone: Chloride [Moles/Vol] 111 mmol/L 98-107 [facility] Work Phone: Eosinophils/100 WBC (Bld) 4.0 % 0-5 [facility] Work Phone: Glucose [Mass/Vol] 94 mg/dL 74-106 [facility] Work Phone: Neutrophils (Bld) [#/Vol] 3.3 10*3/uL 2.0-7.7 [facility] Work Phone: Neutrophils/100 WBC (Bld) 55.6 % 47-70 [facility] Work Phone: Potassium [Moles/Vol] 4.1 mmol/L 3.5-5.1 [facility] Work Phone: Sodium [Moles/Vol] 139 mmol/L 136-145 [facility] Work Phone: WBC (Bld) [#/Vol] 6.0 10*3/uL 4.4-11.0 [facility] Work Phone: Blood erythrocytes count (nu mber/volume)on 05-20-2022 RBC (Bld) [#/Vol] 4.01 10*6/uL 4.2-5.4 [facility] Work Phone: Blood hemoglobin measurement (mass/volume)on 05-20-2022 Hemoglobin (Bld) [Mass/Vol] 13.0 g/dL 12.0-15.0 [facility] Work Phone: Blood lymphocytes/100 leukoc yteson 05-20-2022 Lymphocytes/100 WBC (Bld) 31.5 % 19-41 [facility] Work Phone: Blood monocytes/100 leukocyt eson 05-20-2022 Monocytes/100 WBC (Bld) 8.0 % 0-10 [facility] Work Phone: Blood platelet mean volumeon 05-20-2022 Platelet mean volume (Bld) [Entitic vol] 10.3 fL 6.2-12.0 [facility] Work Phone: Determination of erythrocyte mean corpuscular volume (MCV)on 05-20-2022 MCV (RBC) [Entitic vol] 99.3 fL 81-99 [facility] Work Phone: Hematocrit Auto (Bld) [Volum e fraction]on 05-20-2022 Hematocrit (Bld) [Volume fraction] 39.8 % 37-47 [facility] Work Phone: Laboratory - Chemistry and C hemistry - challengeon 05-20-2022 CO2 [Moles/Vol] 17.0 mmol/L 21.0-32.0 [facility] Work Phone: Urea nitrogen/Creatinine [Mass ratio] 13.2 mg/mg 10-20 [facility] Work Phone: Laboratory - Hematology and Cell countson 05-20-2022 Erythrocyte distribution width (RBC) [Entitic vol] 52.0 fL 35.1-43.9 [facility] Work Phone: Erythrocyte distribution width (RBC) [Ratio] 14.4 % 11.6-14.6 [facility] Work Phone: Immature granulocytes/100 WBC (Bld) 0.200 % 0.0-0.9 [facility] Work Phone: Comment on above: IG% - Immature Granu locytes (promyelocytes, myelocytes and metamyelocytes) > 1% indicates that a LEFT SHIFT is Present. MCH (RBC) [Entitic mass] 32.4 pg 27.0-32.0 [facility] Work Phone: Nucleated RBC/100 WBC (Bld) [Ratio] 0 % 0-5 [facility] Work Phone: MCHC Auto (RBC) [Mass/Vol]on 05-20-2022 MCHC (RBC) [Mass/Vol] 32.7 g/dL 32-36 [facility] Work Phone: No Panel Informationon 05-20 Estimated GFR (MDRD) Amer 94 mL/min >60 [facility] Work Phone: Comment on above: GFR Calc Estimated GFR (MDRD) Non-Af Amer 77 mL/min >60 [facility] Work Phone: Comment on above: Non- GFR Calc Platelets bldon 05-20-2022 Platelets (Bld) [#/Vol] 188 10*3/uL 150-450 [facility] Work Phone: Serum or plasma calcium madi urement (mass/volume)on 05-20-2022 Calcium [Mass/Vol] 9.5 mg/dL 8.5-10.1 [facility] Work Phone: Serum or plasma creatinine m easurement (mass/volume)on 05-20-2022 Creatinine [Mass/Vol] 0.76 mg/dL 0.55-1.02 [facility] Work Phone: Comment on above: The validity of the calculated GFR & GFRAA in patients over 70 years has not been determined. Clinical correlation is essential. Serum or plasma urea nitroge n measurement (mass/volume)on 05-20-2022 Urea nitrogen [Mass/Vol] 10 mg/dL 7-18 [facility] Work Phone: Thin prep Papanicolaou smear with manual screeningon 05-20-2022 Thin prep Papanicolaou smear with manual screening 11 5-15 [facility] Work Phone: Bilirubin Test strip Ql (U)o n 03-07-2022 Bilirubin Ql (U) Negative Negative [facility] Work Phone: Ketones Test strip Ql (U)on 03-07-2022 Ketones Ql (U) Negative Negative [facility] Work Phone: Nitrite Test strip Ql (U)on 03-07-2022 Nitrite Ql (U) Positive Negative [facility] Work Phone: Protein Test strip Ql (U)on 03-07-2022 Protein Ql (U) Negative Negative [facility] Work Phone: Urine blood detectionon 02-13 RBC Ql (U) 25 /ul Negative [facility] Work Phone: Urine clarityon 03-07-2022 Clarity (U) Clear Clear [facility] Work Phone: Urine color determinationon 03-07-2022 Color (U) Yellow Yellow [facility] Work Phone: Urine glucose detectionon Glucose Ql (U) Normal mg/dl Normal [facility] Work Phone: Urine leukocyte esterase det ection by dipstickon 03-07-2022 Leukocyte esterase Test strip Ql (U) 500 /ul Negative [facility] Work Phone: Urine pHon 03-07-2022 pH (U) 6.5 [pH] 5.0 - 8.0 [facility] Work Phone: Urine specific gravity measu rementon 03-07-2022 Specific gravity (U) [Rel density] 1.010 1.002-1.03 0 [facility] Work Phone: Urobilinogen Auto test strip Ql (U)on 03-07-2022 Urobilinogen Ql (U) Normal mg/dl Normal [facility] Work Phone: Basophil percentageon 2021 Cholesterol [Mass/Vol] 117 mg/dL <200 [facility] Work Phone: Comment on above: <200 mg/dL Desirable 200-240 mg/dL Borderline >240 mg/dL High Risk Triglyceride [Mass/Vol] 118 mg/dL [facility] Work Phone: Comment on above: The drugs N-Acetylcy steine and Metamizole may falsely depress this assay.Serum Triglycerides Reference Interval Normal <150 mg/dL Borderline high 150 - 199 mg/dL High 200 - 499 mg/dL Very High > or = 500 mg/dL Serum or plasma cholesterol in HDL measurement (mass/volume)on 01-13-2022 Cholesterol in HDL [Mass/Vol] 44 mg/dL [facility] Work Phone: Comment on above: The drugs N-Acetylcy steine and Metamizole may falsely depress this assay. Reference Range HDL <40 mg/dL Low HDL Cholesterol HDL >or= 60 mg/dL High HDL Cholesterol Serum or plasma cholesterol in VLDL measurement (mass/volume)on 01-13-2022 Cholesterol in VLDL [Mass/Vol] 24 mg/dL 5-40 [facility] Work Phone: Serum or plasma low density lipoprotein (LDL) cholesterol measurement (mass/volume)on 01-13-2022 Cholesterol in LDL [Mass/Vol] 49 mg/dL 0-130 [facility] Work Phone: Absolute lymphocyte counton 11-12-2021 Lymphocytes Auto (Unsp spec) [#/Vol] 1.48 10*3/uL 0.83-4.51 [facility] Work Phone: Basophil percentageon 2021 Basophils/100 WBC (Bld) 0.5 % 0-1 [facility] Work Phone: Chloride [Moles/Vol] 108 mmol/L 98-107 [facility] Work Phone: Eosinophils/100 WBC (Bld) 1.4 % 0-5 [facility] Work Phone: Glucose [Mass/Vol] 105 mg/dL 74-106 [facility] Work Phone: Comment on above: Fasting Glucose resu lt from 100 to 125 mg/dL suggests IMPAIRED HOMEOSTASIS per A.D.A. criteria. Neutrophils (Bld) [#/Vol] 3.5 10*3/uL 2.0-7.7 [facility] Work Phone: Neutrophils/100 WBC (Bld) 61.7 % 47-70 [facility] Work Phone: Potassium [Moles/Vol] 3.8 mmol/L 3.5-5.1 [facility] Work Phone: Sodium [Moles/Vol] 139 mmol/L 136-145 [facility] Work Phone: WBC (Bld) [#/Vol] 5.7 10*3/uL 4.4-11.0 [facility] Work Phone: Blood erythrocytes count (nu mber/volume)on 11-12-2021 RBC (Bld) [#/Vol] 4.44 10*6/uL 4.2-5.4 [facility] Work Phone: Blood hemoglobin measurement (mass/volume)on 11-12-2021 Hemoglobin (Bld) [Mass/Vol] 13.7 g/dL 12.0-15.0 [facility] Work Phone: Blood lymphocytes/100 leukoc yteson 11-12-2021 Lymphocytes/100 WBC (Bld) 26.0 % 19-41 [facility] Work Phone: Blood monocytes/100 leukocyt eson 11-12-2021 Monocytes/100 WBC (Bld) 10.0 % 0-10 [facility] Work Phone: Blood platelet mean volumeon 11-12-2021 Platelet mean volume (Bld) [Entitic vol] 10.2 fL 6.2-12.0 [facility] Work Phone: Determination of erythrocyte mean corpuscular volume (MCV)on 11-12-2021 MCV (RBC) [Entitic vol] 89.4 fL 81-99 [facility] Work Phone: Hematocrit Auto (Bld) [Volum e fraction]on 11-12-2021 Hematocrit (Bld) [Volume fraction] 39.7 % 37-47 [facility] Work Phone: Laboratory - Chemistry and C hemistry - challengeon 11-12-2021 CO2 [Moles/Vol] 29.0 mmol/L 21.0-32.0 [facility] Work Phone: Urea nitrogen/Creatinine [Mass ratio] 16.9 mg/mg 10-20 [facility] Work Phone: Laboratory - Hematology and Cell countson 11-12-2021 Erythrocyte distribution width (RBC) [Entitic vol] 41.8 fL 35.1-43.9 [facility] Work Phone: Erythrocyte distribution width (RBC) [Ratio] 12.8 % 11.6-14.6 [facility] Work Phone: Immature granulocytes/100 WBC (Bld) 0.400 % 0.0-0.9 [facility] Work Phone: Comment on above: IG% - Immature Granu locytes (promyelocytes, myelocytes and metamyelocytes) > 1% indicates that a LEFT SHIFT is Present. MCH (RBC) [Entitic mass] 30.9 pg 27.0-32.0 [facility] Work Phone: Nucleated RBC/100 WBC (Bld) [Ratio] 0 % 0-5 [facility] Work Phone: MCHC Auto (RBC) [Mass/Vol]on 11-12-2021 MCHC (RBC) [Mass/Vol] 34.5 g/dL 32-36 [facility] Work Phone: No Panel Informationon 11-12 Estimated GFR (MDRD) Amer 101 mL/min >60 [facility] Work Phone: Comment on above: GFR Calc Estimated GFR (MDRD) Non-Af Amer 84 mL/min >60 [facility] Work Phone: Comment on above: Non- GFR Calc Platelets bldon 11-12-2021 Platelets (Bld) [#/Vol] 194 10*3/uL 150-450 [facility] Work Phone: Serum or plasma calcium madi urement (mass/volume)on 11-12-2021 Calcium [Mass/Vol] 9.5 mg/dL 8.5-10.1 [facility] Work Phone: Serum or plasma creatinine m easurement (mass/volume)on 11-12-2021 Creatinine [Mass/Vol] 0.71 mg/dL 0.55-1.02 [facility] Work Phone: Comment on above: The validity of the calculated GFR & GFRAA in patients over 70 years has not been determined. Clinical correlation is essential. Serum or plasma urea nitroge n measurement (mass/volume)on 11-12-2021 Urea nitrogen [Mass/Vol] 12 mg/dL 7-18 [facility] Work Phone: Thin prep Papanicolaou smear with manual screeningon 11-12-2021 Thin prep Papanicolaou smear with manual screening 2 5-15 [facility] Work Phone: XR SPINE CERVICAL 1 VIEWon [...] Date: 07/04/2019 10:22:47 AM Ordering Provider:[facility] ([place]) .GFRon 06-09-2019 GFR >60 [facility] ([place]) Comment on above: Result Comment: GFR Population [...] #### C BC, DIFF, MORPH, BMP, GFR ####[place] [address] GFR Non- >60 [facility] ([place] Comment on above: Result Comment: GFR Population [...] #### C BC, DIFF, MORPH, BMP, GFR ####[address] [address] .Manual Diffon 06-09-2019 Basophil %, Manual 1.0 % Normal 0.0-2.5 [facility] ([place]) Comment on above: Performed By: #### C BC, DIFF, MORPH, BMP, GFR ####[place] [address] Basophil, Abs Manual 0.08 10 3/mcL Normal 0.00-0.27 A [facility] ([place]) Comment on above: Performed By: #### C BC, DIFF, MORPH, BMP, GFR ####[place] [address] Cells Counted 100 Normal [facility] ([place]) Comment on above: Performed By: #### C BC, DIFF, MORPH, BMP, GFR ####[place] [address] Eosinophil %, Manual 2.0 % Normal 0.0-6.0 [facility] ([place]) Comment on above: Performed By: #### C BC, DIFF, MORPH, BMP, GFR ####[place] [address] Eosinophil, Abs Manual 0.16 10 3/mcL Normal 0.00-0.65 [facility] ([place]) Comment on above: Performed By: #### C BC, DIFF, MORPH, BMP, GFR ####[place] [address] Lymphocyte %, Manual 9.0 % Low 20.0-40.0 [facility] ([place]) Comment on above: Performed By: #### C BC, DIFF, MORPH, BMP, GFR ####[place] [address] Lymphocyte, Abs Manual 0.72 10 3/mcL Low 0.90-4.32 [facility] ([place]) Comment on above: Performed By: #### C BC, DIFF, MORPH, BMP, GFR ####[place] [address] Monocyte %, Manual 6.0 % Normal 2.0-13.0 [facility] ([place]) Comment on above: Performed By: #### C BC, DIFF, MORPH, BMP, GFR ####[place] [address] Monocyte, Abs Manual 0.48 10 3/mcL Normal 0.09-1.40 A [facility] ([place]) Comment on above: Performed By: #### C BC, DIFF, MORPH, BMP, GFR ####[place] [address] Myelocyte 1.0 % Normal [facility] ([place]) Comment on above: Performed By: #### C BC, DIFF, MORPH, BMP, GFR ####[place] [address] Neutrophil %, Manual 81.0 % High 50.0-75.0 [facility] ([place]) Comment on above: Performed By: #### C BC, DIFF, MORPH, BMP, GFR ####[place] [address] Neutrophil, Abs Manual 6.48 10 3/mcL Normal 2.25-8.10 [facility] ([place] Comment on above: Performed By: #### C BC, DIFF, MORPH, BMP, GFR ####[place] [address] .Morphon 06-09-2019 Platelets (Bld) [#/Vol] Normal Normal [facility] ([place] Comment on above: Performed By: #### C BC, DIFF, MORPH, BMP, GFR ####[place] [address] Polychrom Slight Normal [facility] ([place] Comment on above: Performed By: #### C BC, DIFF, MORPH, BMP, GFR ####[place] [address] BMPon 06-09-2019 Creatinine [Mass/Vol] 0.75 mg/dL Normal 0.50-1.20 [facility] ([place]) Comment on above: Performed By: #### C BC, DIFF, MORPH, BMP, GFR ####[place] [address] Urea nitrogen/Creatinine [Mass ratio] 18.7 ratio Normal 10.0-22.0 [facility] ([place] Comment on above: Performed By: #### C BC, DIFF, MORPH, BMP, GFR ####[address] [address] Calcium [Mass/Vol] 8.2 mg/dL Low 8.4-10.1 [facility] ([place] Comment on above: Performed By: #### C BC, DIFF, MORPH, BMP, GFR ####[address] [address] Chloride [Moles/Vol] 106 mmol/L Normal 98-110 [facility] ([place] Comment on above: Performed By: #### C BC, DIFF, MORPH, BMP, GFR ####[address] [address] CO2 [Moles/Vol] 18 mmol/L Low 22-32 [facility] ([place] Comment on above: Performed By: #### C BC, DIFF, MORPH, BMP, GFR ####[address] [address] Electrolyte Balance 16.0 mEq/L High 4.0-15.0 [facility] ([place] Comment on above: Performed By: #### C BC, DIFF, MORPH, BMP, GFR ####[address] [address] Glucose [Mass/Vol] 109 mg/dL Normal 82-115 [facility] ([place] Comment on above: Performed By: #### C BC, DIFF, MORPH, BMP, GFR ####[address] [address] Potassium [Moles/Vol] 3.8 mmol/L Normal 3.5-5.0 [facility] ([place] Comment on above: Performed By: #### C BC, DIFF, MORPH, BMP, GFR ####[address] [address] Sodium [Moles/Vol] 140 mmol/L Normal 136-145 [facility] ([place] Comment on above: Performed By: #### C BC, DIFF, MORPH, BMP, GFR ####[address] [address] Urea nitrogen [Mass/Vol] 14.0 mg/dL Normal 8.0-22.0 [facility] ([place] Comment on above: Performed By: #### C BC, DIFF, MORPH, BMP, GFR ####[address] [address] CBCon 06-09-2019 Platelet mean volume (Bld) [Entitic vol] 8.6 fL Normal 6.6-10.5 [facility] ([place] Comment on above: Performed By: #### C BC, DIFF, MORPH, BMP, GFR ####[address] [address] Platelets (Bld) [#/Vol] 229 10 3/mcL Normal 150-450 [facility] ([place] Comment on above: Performed By: #### C BC, DIFF, MORPH, BMP, GFR ####[place] [id number] WBC (Bld) [#/Vol] 8.00 10 3/mcL Normal 4.50-10.80 [facility] ([place] Comment on above: Performed By: #### C BC, DIFF, MORPH, BMP, GFR ####[place] [address] Erythrocyte distribution width (RBC) [Ratio] 13.8 % Normal 11.5-15.5 [facility] ([place] Comment on above: Performed By: #### C BC, DIFF, MORPH, BMP, GFR ####[place] [address] Hematocrit (Bld) [Volume fraction] 26.6 % Low 34.0-46.0 [facility] ([place] Comment on above: Performed By: #### C BC, DIFF, MORPH, BMP, GFR ####[address] [address] Hemoglobin (Bld) [Mass/Vol] 9.1 G/dL Low 12.0-16.0 [facility] ([place] Comment on above: Performed By: #### C BC, DIFF, MORPH, BMP, GFR ####[address] [address] MCH (RBC) [Entitic mass] 30.1 pg Normal 27.0-33.0 [facility] ([place] Comment on above: Performed By: #### C BC, DIFF, MORPH, BMP, GFR ####[address] [address] MCHC (RBC) [Mass/Vol] 34.3 G/dL Normal 32.0-36.0 [facility] ([place] Comment on above: Performed By: #### C BC, DIFF, MORPH, BMP, GFR ####[place] [address] MCV (RBC) [Entitic vol] 87.9 fL Normal 80.0-99.0 [facility] ([place] Comment on above: Performed By: #### C BC, DIFF, MORPH, BMP, GFR ####[place] [address] RBC (Bld) [#/Vol] 3.03 10 6/mcL Low 4.10-5.30 [facility] ([place] Comment on above: Performed By: #### C BC, DIFF, MORPH, BMP, GFR ####[place] [address] XR CHEST 2 VIEWSon 9 XR CHEST [...] AM Sign Date: 06/09/2019 7:22:18 AM Normal [facility] ([place]) .GFRon 06-08-2019 GFR >[address] [facility] ([place]) Comment on above: Result Comment: GFR Population [...] meters Performed By: #### B MP, GFR ####[address] [address] GFR Non- >60 Normal [facility] ([place] Comment on above: Result Comment: GFR Population [...] meters Performed By: #### B MP, GFR ####[address] [address] BMPon 06-08-2019 Creatinine [Mass/Vol] 0.60 mg/dL Normal 0.50-1.20 [facility] ([place] Comment on above: Performed By: #### B MP, GFR ####[address] [address] Urea nitrogen/Creatinine [Mass ratio] 21.7 ratio Normal 10.0-22.0 [facility] ([place] Comment on above: Performed By: #### B MP, GFR ####[address] [address] Calcium [Mass/Vol] 7.9 mg/dL Low 8.4-10.1 [facility] ([place] Comment on above: Performed By: #### B MP, GFR ####[address] [address] Chloride [Moles/Vol] 107 mmol/L Normal 98-110 [facility] ([place] Comment on above: Performed By: #### B MP, GFR ####[address] [address] CO2 [Moles/Vol] 28 mmol/L Normal 22-32 [facility] ([place] Comment on above: Performed By: #### B MP, GFR ####[address] [address] Electrolyte Balance 8.0 mEq/L Normal 4.0-15.0 [facility] ([place] Comment on above: Performed By: #### B MP, GFR ####[address] [address] Glucose [Mass/Vol] 115 mg/dL Normal 82-115 [facility] ([place] Comment on above: Performed By: #### B MP, GFR ####[address] [address] Potassium [Moles/Vol] 3.7 mmol/L Normal 3.5-5.0 [facility] ([place] Comment on above: Performed By: #### B MP, GFR ####[address] [address] Sodium [Moles/Vol] 143 mmol/L Normal 136-145 [facility] ([place] Comment on above: Performed By: #### B MP, GFR ####[address] [address] Urea nitrogen [Mass/Vol] 13.0 mg/dL Normal 8.0-22.0 [facility] ([place] Comment on above: Performed By: #### B MP, GFR ####[address] [address] XR CHEST 2 VIEWSon 9 XR CHEST [...] AM Sign Date: 06/08/2019 6:29:24 AM Normal [facility] ([place]) .Auto Diffon 06-07-2019 Ammonia (P) [Mass/Vol] 0.40 10 3/mcL Normal 0.09-1.40 [facility] ([place] Comment on above: Performed By: #### C BC, ADIFF, ANEU, CMP, GFR ####[address] [address] Basophils (Bld) [#/Vol] 0.00 10 3/mcL Normal 0.00-0.27 [facility] ([place] Comment on above: Performed By: #### C BC, ADIFF, ANEU, CMP, GFR ####[address] [address] Basophils/100 WBC (Bld) 0.4 % Normal 0.0-2.5 [facility] ([place] Comment on above: Performed By: #### C BC, ADIFF, ANEU, CMP, GFR ####[address] [address] Eosinophils (Bld) [#/Vol] 0.30 10 3/mcL Normal 0.00-0.65 [facility] ([place] Comment on above: Performed By: #### C BC, ADIFF, ANEU, CMP, GFR ####[address] [address] Eosinophils/100 WBC (Bld) 6.6 % High 0.0-6.0 [facility] ([place] Comment on above: Performed By: #### C BC, ADIFF, ANEU, CMP, GFR ####[address] [address] Lymphocytes (Bld) [#/Vol] 1.00 10 3/mcL Normal 0.90-4.32 [facility] ([place]) Comment on above: Performed By: #### C BC, ADIFF, ANEU, CMP, GFR ####[address] [address] Lymphocytes/100 WBC (Bld) 19.0 % Low 20.0-40.0 [facility] ([place] Comment on above: Performed By: #### C BC, ADIFF, ANEU, CMP, GFR ####[address] [address] Monocytes/100 WBC (Bld) 7.4 % Normal 2.0-13.0 [facility] ([place] Comment on above: Performed By: #### C BC, ADIFF, ANEU, CMP, GFR ####[address] [address] Neutrophils/100 WBC (Bld) 66.6 % Normal 50.0-75.0 [facility] ([place] Comment on above: Performed By: #### C BC, ADIFF, ANEU, CMP, GFR ####[address] [address] Ammonia (P) [Mass/Vol] 0.50 10 3/mcL Normal 0.09-1.40 [facility] ([place] Comment on above: Performed By: #### C BC, ADIFF, ANEU, BMP, GFR ####[address] [address] Basophils (Bld) [#/Vol] 0.00 10 3/mcL Normal 0.00-0.27 [facility] ([place]) Comment on above: Performed By: #### C BC, ADIFF, ANEU, BMP, GFR ####[address] [address] Basophils/100 WBC (Bld) 0.7 % Normal 0.0-2.5 [facility] ([place] Comment on above: Performed By: #### C BC, ADIFF, ANEU, BMP, GFR ####[address] [address] Eosinophils (Bld) [#/Vol] 0.10 10 3/mcL Normal 0.00-0.65 [facility] ([place] Comment on above: Performed By: #### C BC, ADIFF, ANEU, BMP, GFR ####[address] [address] Eosinophils/100 WBC (Bld) 1.8 % Normal 0.0-6.0 [facility] ([place]) Comment on above: Performed By: #### C BC, ADIFF, ANEU, BMP, GFR ####[address] [address] Lymphocytes (Bld) [#/Vol] 2.10 10 3/mcL Normal 0.90-4.32 [facility] ([place]) Comment on above: Performed By: #### C BC, ADIFF, ANEU, BMP, GFR ####[address] [address] Lymphocytes/100 WBC (Bld) 32.8 % Normal 20.0-40.0 [facility] ([place] Comment on above: Performed By: #### C BC, ADIFF, ANEU, BMP, GFR ####[address] [address] Monocytes/100 WBC (Bld) 7.1 % Normal 2.0-13.0 [facility] ([place] Comment on above: Performed By: #### C BC, ADIFF, ANEU, BMP, GFR ####[address] [address] Neutrophils/100 WBC (Bld) 57.6 % Normal 50.0-75.0 [facility] ([place] Comment on above: Performed By: #### C BC, ADIFF, ANEU, BMP, GFR ####[address] [address] Ammonia (P) [Mass/Vol] 0.60 10 3/mcL Normal 0.09-1.40 [facility] ([place] Comment on above: Performed By: #### C STEPHANIE KRISHNAMURTHY, ANEU #### [address] [address] #### BMP, GFR #### [address] [address] Basophils (Bld) [#/Vol] 0.00 10 3/mcL Normal 0.00-0.27 [facility] ([place]) Comment on above: Performed By: #### C STEPHANIE KRISHNAMURTHY, ANEU #### [place] [address] #### BMP, GFR #### [address] [address] Basophils/100 WBC (Bld) 0.5 % Normal 0.0-2.5 [facility] ([place] Comment on above: Performed By: #### C STEPHANIE KRISHNAMURTHY, ANEU #### [address] [address] #### BMP, GFR #### [address] [address] Eosinophils (Bld) [#/Vol] 0.10 10 3/mcL Normal 0.00-0.65 [facility] ([place] Comment on above: Performed By: #### C STEPHANIE KRISHNAMURTHY, ANEU #### [place] [address] #### BMP, GFR #### [address] [address] Eosinophils/100 WBC (Bld) 2.2 % Normal 0.0-6.0 [facility] ([place] Comment on above: Performed By: #### C STEPHANIE KRISHNAMURTHY, ANEU #### [address] [address] #### BMP, GFR #### [address] [address] Lymphocytes (Bld) [#/Vol] 0.80 10 3/mcL Low 0.90-4.32 [facility] ([place]) Comment on above: Performed By: #### C BC, ADIFF, ANEU #### [address] [address] #### BMP, GFR #### [address] [address] Lymphocytes/100 WBC (Bld) 12.3 % Low 20.0-40.0 [facility] ([place] Comment on above: Performed By: #### C BC, ADIFF, ANEU #### [address] [address] #### BMP, GFR #### [address] [address] Monocytes/100 WBC (Bld) 9.5 % Normal 2.0-13.0 [facility] ([place] Comment on above: Performed By: #### C BC, ADIFF, ANEU #### [address] [address] #### BMP, GFR #### [address] [address] Neutrophils/100 WBC (Bld) 75.5 % High 50.0-75.0 [facility] ([place] Comment on above: Performed By: #### C BC, ADIFF, ANEU #### [address] [address] #### BMP, GFR #### [address] [address] .GFRon 06-07-2019 GFR >[address] [facility] ([place]) Comment on above: Result Comment: [...] #### C BC, ADIFF, ANEU, CMP, GFR ####[address] [address] GFR Non- >60 Normal [facility] ([place] Comment on above: Result Comment: GFR Population [...] #### C BC, ADIFF, ANEU, CMP, GFR ####[address] [address] GFR >[address] [facility] ([place] Comment on above: Result Comment: GFR Population [...] #### C BC, ADIFF, ANEU, BMP, GFR ####[address] [address] GFR Non- >60 Normal [facility] ([place] Comment on above: Result Comment: GFR Population [...] #### C BC, STEPHANIE, ANEU, BMP, GFR ####[place] [address] [address] [place] [address] GFR Non- >60 Normal [facility] ([place] Comment on above: Result Comment: GFR Population [...] square meters Performed By: #### C BC, ADYAMILEX, ANEU, BMP, GFR ####[address] [address] GFR >[address] [facility] ([place] Comment on above: Result Comment: GFR Population [...] #### C BC, ADIFF, ANEU, BMP, GFR ####[address] [address] .NEUABSon 06-07-2019 Neutrophils (Bld) [#/Vol] 3.40 10 3/mcL Normal 2.25-8.10 [facility] ([place] Comment on above: Performed By: #### C BC, ADIFF, ANEU, CMP, GFR ####[place] [address] Neutrophils (Bld) [#/Vol] 3.80 10 3/mcL Normal 2.25-8.10 [facility] ([place] Comment on above: Performed By: #### C BC, ADIFF, ANEU, BMP, GFR ####[place] [address] Neutrophils (Bld) [#/Vol] 5.00 10 3/mcL Normal 2.25-8.10 [facility] ([place] Comment on above: Performed By: #### C BC, ADIFF, ANEU #### [address] [address] #### BMP, GFR #### [place] [address] BMPon 06-07-2019 Creatinine [Mass/Vol] 0.66 mg/dL Normal 0.50-1.20 [facility] ([place] Comment on above: Performed By: #### C BC, ADIFF, ANEU, BMP, GFR ####[place] [address] Urea nitrogen/Creatinine [Mass ratio] 16.7 ratio Normal 10.0-22.0 [facility] ([place] Comment on above: Performed By: #### C BC, ADIFF, ANEU, BMP, GFR ####[place] [address] Calcium [Mass/Vol] 7.8 mg/dL Low 8.4-10.1 [facility] ([place] Comment on above: Performed By: #### C BC, ADIFF, ANEU, BMP, GFR ####[address] [address] Chloride [Moles/Vol] 106 mmol/L Normal 98-110 [facility] ([place] Comment on above: Performed By: #### C BC, ADIFF, ANEU, BMP, GFR ####[address] [address] CO2 [Moles/Vol] 26 mmol/L Normal 22-32 [facility] ([place] Comment on above: Performed By: #### C BC, ADIFF, ANEU, BMP, GFR ####[address] [address] Electrolyte Balance 9.0 mEq/L Normal 4.0-15.0 [facility] ([place] Comment on above: Performed By: #### C BC, ADIFF, ANEU, BMP, GFR ####[address] [address] Glucose [Mass/Vol] 101 mg/dL Normal 82-115 [facility] ([place] Comment on above: Performed By: #### C BC, ADIFF, ANEU, BMP, GFR ####[address] [address] Potassium [Moles/Vol] 3.6 mmol/L Normal 3.5-5.0 [facility] ([place] Comment on above: Performed By: #### C BC, ADIFF, ANEU, BMP, GFR ####[address] [address] Sodium [Moles/Vol] 141 mmol/L Normal 136-145 [facility] ([place] Comment on above: Performed By: #### C BC, ADIFF, ANEU, BMP, GFR ####[address] [address] Urea nitrogen [Mass/Vol] 11.0 mg/dL Normal 8.0-22.0 [facility] ([place] Comment on above: Performed By: #### C BC, ADIFF, ANEU, BMP, GFR ####[address] [address] Calcium [Mass/Vol] 8.4 mg/dL Normal 8.4-10.1 [facility] ([place] Comment on above: Performed By: #### C BC, ADIFF, ANEU, BMP, GFR ####[address] [address] Chloride [Moles/Vol] 106 mmol/L Normal 98-110 [facility] ([place] Comment on above: Performed By: #### C BC, ADIFF, ANEU, BMP, GFR ####[address] [address] CO2 [Moles/Vol] 25 mmol/L Normal 22-32 [facility] ([place] Comment on above: Performed By: #### C BC, ADIFF, ANEU, BMP, GFR ####[place] [address] Creatinine [Mass/Vol] 0.73 mg/dL Normal 0.50-1.20 [facility] ([place] Comment on above: Performed By: #### C BC, ADIFF, ANEU, BMP, GFR ####[place] [address] Electrolyte Balance 9.0 mEq/L Normal 4.0-15.0 [facility] ([place] Comment on above: Performed By: #### C BC, ADIFF, ANEU, BMP, GFR ####[address] [address] Glucose [Mass/Vol] 230 mg/dL High 82-115 [facility] ([place] Comment on above: Performed By: #### C BC, ADIFF, ANEU, BMP, GFR ####[place] [address] Potassium [Moles/Vol] 3.8 mmol/L Normal 3.5-5.0 [facility] ([place] Comment on above: Performed By: #### C BC, ADIFF, ANEU, BMP, GFR ####[address] [address] Sodium [Moles/Vol] 140 mmol/L Normal 136-145 [facility] ([place] Comment on above: Performed By: #### C BC, ADIFF, ANEU, BMP, GFR ####[place] [address] Urea nitrogen [Mass/Vol] 16.0 mg/dL Normal 8.0-22.0 [facility] ([place] Comment on above: Performed By: #### C BC, ADIFF, ANEU, BMP, GFR ####[place] [address] Urea nitrogen/Creatinine [Mass ratio] 21.9 ratio Normal 10.0-22.0 [facility] ([place] Comment on above: Performed By: #### C BC, ADIFF, ANEU, BMP, GFR ####[place] [address] CBCon 06-07-2019 Erythrocyte distribution width (RBC) [Ratio] 12.5 % Normal 11.5-15.5 [facility] ([place] Comment on above: Performed By: #### C BC, ADIFF, ANEU, CMP, GFR ####[place] [address] Hematocrit (Bld) [Volume fraction] 35.3 % Low 40.0-52.0 [facility] ([place] Comment on above: Performed By: #### C BC, ADIFF, ANEU, CMP, GFR ####[place] [address] Hemoglobin (Bld) [Mass/Vol] 12.0 G/dL Low 13.0-17.5 [facility] ([place] Comment on above: Performed By: #### C BC, ADIFF, ANEU, CMP, GFR ####[place] [address] MCH (RBC) [Entitic mass] 32.0 pg Normal 27.0-33.0 [facility] ([place] Comment on above: Performed By: #### C BC, ADIFF, ANEU, CMP, GFR ####[id number] [place] [address] MCHC (RBC) [Mass/Vol] 34.1 G/dL Normal 32.0-36.0 [facility] ([place] Comment on above: Performed By: #### C BC, ADIFF, ANEU, CMP, GFR ####[address] [address] MCV (RBC) [Entitic vol] 94.1 fL Normal 81.0-100.0 [facility] ([place] Comment on above: Performed By: #### C BC, ADIFF, ANEU, CMP, GFR ####[address] [address] Platelet mean volume (Bld) [Entitic vol] 6.9 fL Normal 6.4-10.5 [facility] ([place] Comment on above: Performed By: #### C BC, ADIFF, ANEU, CMP, GFR ####[address] [address] Platelets (Bld) [#/Vol] 109 10 3/mcL Low 150-450 [facility] ([place] Comment on above: Performed By: #### C BC, ADIFF, ANEU, CMP, GFR ####[address] [address] RBC (Bld) [#/Vol] 3.76 10 6/mcL Low 4.50-6.00 [facility] ([place] Comment on above: Performed By: #### C BC, ADIFF, ANEU, CMP, GFR ####[place] [id number] WBC (Bld) [#/Vol] 5.00 10 3/mcL Normal 4.50-10.80 [facility] ([place] Comment on above: Performed By: #### C BC, ADIFF, ANEU, CMP, GFR ####[place] [address] Erythrocyte distribution width (RBC) [Ratio] 13.6 % Normal 11.5-15.5 [facility] ([place] Comment on above: Performed By: #### C BC, ADIFF, ANEU, BMP, GFR ####[address] [address] Hematocrit (Bld) [Volume fraction] 28.1 % Low 34.0-46.0 [facility] ([place] Comment on above: Performed By: #### C BC, ADIFF, ANEU, BMP, GFR ####[place] [address] Hemoglobin (Bld) [Mass/Vol] 9.4 G/dL Low 12.0-16.0 [facility] ([place] Comment on above: Performed By: #### C BC, ADIFF, ANEU, BMP, GFR ####[place] [address] MCH (RBC) [Entitic mass] 32.4 pg Normal 27.0-33.0 [facility] ([place] Comment on above: Performed By: #### C BC, ADIFF, ANEU, BMP, GFR ####[place] [address] MCHC (RBC) [Mass/Vol] 33.5 G/dL Normal 32.0-36.0 [facility] ([place] Comment on above: Performed By: #### C BC, ADIFF, ANEU, BMP, GFR ####[place] [address] MCV (RBC) [Entitic vol] 96.7 fL Normal 80.0-99.0 [facility] ([place] Comment on above: Performed By: #### C BC, ADIFF, ANEU, BMP, GFR ####[place] [address] Platelet mean volume (Bld) [Entitic vol] 7.5 fL Normal 6.6-10.5 [facility] ([place] Comment on above: Performed By: #### C BC, ADIFF, ANEU, BMP, GFR ####[place] [id number] Platelets (Bld) [#/Vol] 257 10 3/mcL Normal 150-450 [facility] ([place] Comment on above: Performed By: #### C BC, ADIFF, ANEU, BMP, GFR ####[id number] [place], [place] [address] RBC (Bld) [#/Vol] 2.90 10 6/mcL Low 4.10-5.30 [facility] ([place] Comment on above: Performed By: #### C BC, ADIFF, ANEU, BMP, GFR ####[address] [address] WBC (Bld) [#/Vol] 6.50 10 3/mcL Normal 4.50-10.80 [facility] ([place] Comment on above: Performed By: #### C BC, ADIFF, ANEU, BMP, GFR ####[address] [address] Erythrocyte distribution width (RBC) [Ratio] 13.8 % Normal 11.5-15.5 [facility] ([place] Comment on above: Performed By: #### C BC, ADIFF, ANEU #### [address] [address] #### BMP, GFR #### [address] [address] Hematocrit (Bld) [Volume fraction] 27.4 % Low 34.0-46.0 [facility] ([place] Comment on above: Performed By: #### C BC, ADIFF, ANEU #### [address] [address] #### BMP, GFR #### [address] [address] Hemoglobin (Bld) [Mass/Vol] 9.4 G/dL Low 12.0-16.0 [facility] ([place] Comment on above: Performed By: #### C BC, ADIFF, ANEU #### [address] [address] #### BMP, GFR #### [address] [address] MCH (RBC) [Entitic mass] 30.3 pg Normal 27.0-33.0 [facility] ([place] Comment on above: Performed By: #### C BC, ADIFF, ANEU #### [address] [address] #### BMP, GFR #### [address] [address] MCHC (RBC) [Mass/Vol] 34.4 G/dL Normal 32.0-36.0 [facility] ([place] Comment on above: Performed By: #### C BC, ADIFF, ANEU #### [address] [address] #### BMP, GFR #### [address] [address] MCV (RBC) [Entitic vol] 88.2 fL Normal 80.0-99.0 [facility] ([place]) Comment on above: Performed By: #### C BC, ADIFF, ANEU #### [place] [address] #### BMP, GFR #### [address] [address] Platelet mean volume (Bld) [Entitic vol] 8.1 fL Normal 6.6-10.5 [facility] ([place] Comment on above: Performed By: #### C BC, ADIFF, ANEU #### [place] [address] #### BMP, GFR #### [address] [address] Platelets (Bld) [#/Vol] 188 10 3/mcL Normal 150-450 [facility] ([place] Comment on above: Performed By: #### C BC, ADIFF, ANEU #### [place] [address] #### BMP, GFR #### [address] [address] RBC (Bld) [#/Vol] 3.11 10 6/mcL Low 4.10-5.30 [facility] ([place] Comment on above: Performed By: #### C BC, ADIFF, ANEU #### [place] [id number] #### BMP, GFR #### [address] [address] WBC (Bld) [#/Vol] 6.70 10 3/mcL Normal 4.50-10.80 [facility] ([place] Comment on above: Performed By: #### C BC, ADIFF, ANEU #### [address] [address] #### BMP, GFR #### [address] [address] CMPon 06-07-2019 Albumin/Globulin [Mass ratio] 0.8 {ratio} Low 0.9-1.6 [facility] ([place]) Comment on above: Performed By: #### C BC, ADIFF, ANEU, CMP, GFR ####[place] [address] ALP [Catalytic activity/Vol] 47 U/L Normal 38-126 [facility] ([place]) Comment on above: Performed By: #### C BC, ADIFF, ANEU, CMP, GFR ####[place] [address] Bili Total 0.5 mg/dL Normal 0.2-1.2 [facility] ([place]) Comment on above: Performed By: #### C BC, ADIFF, ANEU, CMP, GFR ####[place] [address] Creatinine [Mass/Vol] 0.66 mg/dL Normal 0.60-1.40 [facility] ([place]) Comment on above: Performed By: #### C BC, ADIFF, ANEU, CMP, GFR ####[place] [address] Globulin (S) [Mass/Vol] 2.7 G/dL Normal 1.5-3.8 [facility] ([place]) Comment on above: Performed By: #### C BC, ADIFF, ANEU, CMP, GFR ####[address] [address] Protein [Mass/Vol] 4.8 G/dL Low 6.0-8.5 [facility] ([place]) Comment on above: Performed By: #### C BC, ADIFF, ANEU, CMP, GFR ####[address] [address] Urea nitrogen/Creatinine [Mass ratio] 4.5 ratio Low 10.0-22.0 [facility] ([place]) Comment on above: Performed By: #### C BC, ADIFF, ANEU, CMP, GFR ####[address] [address] Albumin [Mass/Vol] 2.1 G/dL Low 3.2-4.8 [facility] ([place]) Comment on above: Performed By: #### C BC, ADIFF, ANEU, CMP, GFR ####[address] [address] ALT [Catalytic activity/Vol] 16 U/L Normal 12-55 [facility] [facility] ([place] Comment on above: Performed By: #### C BC, ADIFF, ANEU, CMP, GFR ####[address] [address] AST [Catalytic activity/Vol] 11 U/L Normal 8-34 [facility] ([place]) Comment on above: Performed By: #### C BC, ADIFF, ANEU, CMP, GFR ####[address] [address] Calcium [Mass/Vol] 7.8 mg/dL Low 8.4-10.1 [facility] ([place]) Comment on above: Performed By: #### C BC, ADIFF, ANEU, CMP, GFR ####[address] [address] Chloride [Moles/Vol] 113 mmol/L High 98-110 [facility] ([place] Comment on above: Performed By: #### C BC, ADIFF, ANEU, CMP, GFR ####[address] [address] CO2 [Moles/Vol] 30 mmol/L Normal 22-32 [facility] ([place] Comment on above: Performed By: #### C BC, ADIFF, ANEU, CMP, GFR ####[address] [address] Electrolyte Balance 5.0 mEq/L Normal 4.0-15.0 [facility]ly [facility], [facility] ([place] Comment on above: Performed By: #### C BC, ADIFF, ANEU, CMP, GFR ####[address] [address] Glucose [Mass/Vol] 124 mg/dL High 70-110 [facility] ([place] Comment on above: Performed By: #### C BC, ADIFF, ANEU, CMP, GFR ####[place] [address] Potassium [Moles/Vol] 3.7 mmol/L Normal 3.5-5.0 [facility] ([place] Comment on above: Performed By: #### C BC, ADIFF, ANEU, CMP, GFR ####[place] [address] Sodium [Moles/Vol] 148 mmol/L High 136-145 [facility] ([place] Comment on above: Performed By: #### C BC, ADIFF, ANEU, CMP, GFR ####[place] [address] Urea nitrogen [Mass/Vol] 3.0 mg/dL Low 8.0-22.0 [facility] ([place] Comment on above: Performed By: #### C BC, ADIFF, ANEU, CMP, GFR ####[address] [address] HHon 06-07-2019 Hematocrit (Bld) [Volume fraction] 27.4 % Low 34.0-46.0 [facility] ([place] Comment on above: Performed By: #### H H ####[place] [address] Hemoglobin (Bld) [Mass/Vol] 9.6 G/dL Low 12.0-16.0 [facility] ([place] Comment on above: Performed By: #### H H ####[address] [address] XR CHEST 1 VIEWon 06-07-2019 XR CHEST [...] AM Sign Date: 06/07/2019 7:43:21 AM Normal [facility] ([place]) .Auto Diffon 06-06-2019 Ammonia (P) [Mass/Vol] 0.70 10 3/mcL Normal 0.09-1.40 [facility] ([place] Comment on above: Performed By: #### C STEPHANIE KRISHNAMURTHY ANEU #### [place] [address] #### BMP, GFR #### [address] [address] Basophils (Bld) [#/Vol] 0.00 10 3/mcL Normal 0.00-0.27 [facility] ([place] Comment on above: Performed By: #### STEPHANIE JOHNSON ANEU #### [place] [address] #### BMP, GFR #### [address] [address] Basophils/100 WBC (Bld) 0.4 % Normal 0.0-2.5 [facility] ([place] Comment on above: Performed By: #### C STEPHANIE KRISHNAMURTHY ANEU #### [place] [address] #### BMP, GFR #### [address] [address] Eosinophils (Bld) [#/Vol] 0.10 10 3/mcL Normal 0.00-0.65 [facility] ([place] Comment on above: Performed By: #### STEPHANIE JOHNSON ANEU #### [place] [address] #### BMP, GFR #### [address] [address] Eosinophils/100 WBC (Bld) 0.8 % Normal 0.0-6.0 [facility] ([place]) Comment on above: Performed By: #### C BC, ADIFF, ANEU #### [address] [address] #### BMP, GFR #### [address] [address] Lymphocytes (Bld) [#/Vol] 0.70 10 3/mcL Low 0.90-4.32 [facility] ([place]) Comment on above: Performed By: #### C BC, ADIFF, ANEU #### [place] [address] #### BMP, GFR #### [address] [address] Lymphocytes/100 WBC (Bld) 9.2 % Low 20.0-40.0 [facility] ([place]) Comment on above: Performed By: #### C BC, ADIFF, ANEU #### [place] [address] #### BMP, GFR #### [address] [address] Monocytes/100 WBC (Bld) 9.6 % Normal 2.0-13.0 [facility] ([place]) Comment on above: Performed By: #### C BC, ADIFF, ANEU #### [place] [address] #### BMP, GFR #### [address] [address] Neutrophils/100 WBC (Bld) 80.0 % High 50.0-75.0 [facility] ([place]) Comment on above: Performed By: #### C BC, ADIFF, ANEU #### [address] [address] #### BMP, GFR #### [address] [address] .GFRon 09-23-2019 GFR Non- >60 Normal [facility] ([place] Comment on above: Result Comment: GFR Population [...] Performed By: #### C BCSTEPHANIE, ANEU #### [address] [address] #### BMP, GFR #### [place] [address] GFR >[address] [facility] ([place] Comment on above: Result Comment: GFR Population [...] By: #### C BC, ADIFF, ANEU #### [address] [address] #### BMP, GFR #### [address] [address] .NEUABSon 06-06-2019 Neutrophils (Bld) [#/Vol] 6.20 10 3/mcL Normal 2.25-8.10 [facility] ([place] Comment on above: Performed By: #### C BC, ADIFF, ANEU #### [address] [address] #### BMP, GFR #### [address] [address] BMPon 06-06-2019 Calcium [Mass/Vol] 8.0 mg/dL Low 8.4-10.1 [facility] [place] Comment on above: Performed By: #### C BC, ADIFF, ANEU #### [address] [address] #### BMP, GFR #### [address] [address] Chloride [Moles/Vol] 104 mmol/L Normal 98-110 [facility] ([place] Comment on above: Performed By: #### C BC, ADIFF, ANEU #### [place] [address] #### BMP, GFR #### [address] [address] CO2 [Moles/Vol] 26 mmol/L Normal 22-32 [facility] ([place] Comment on above: Performed By: #### C BC, ADIFF, ANEU #### [address] [address] #### BMP, GFR #### [address] [address] Creatinine [Mass/Vol] 0.66 mg/dL Normal 0.50-1.20 [facility] ([place] Comment on above: Performed By: #### C BC, ADIFF, ANEU #### [place] [address] #### BMP, GFR #### [address] [address] Electrolyte Balance 10.0 mEq/L Normal 4.0-15.0 [facility] ([place] Comment on above: Performed By: #### C BC, ADIFF, ANEU #### [address] [place] [address] #### BMP, GFR #### [address] [address] Glucose [Mass/Vol] 104 mg/dL Normal 82-115 [facility] ([place] Comment on above: Performed By: #### C BC, ADIFF, ANEU #### [address] [address] #### BMP, GFR #### [address] [address] Potassium [Moles/Vol] 3.2 mmol/L Low 3.5-5.0 [facility] ([place] Comment on above: Performed By: #### C BC, ADIFF, ANEU #### [address] [address] #### BMP, GFR #### [address] [address] Sodium [Moles/Vol] 140 mmol/L Normal 136-145 [facility] ([place] Comment on above: Performed By: #### C BC, ADIFF, ANEU #### [address] [address] #### BMP, GFR #### [address] [address] Urea nitrogen [Mass/Vol] 10.0 mg/dL Normal 8.0-22.0 [facility] ([place] Comment on above: Performed By: #### C BC, ADIFF, ANEU #### [place] [address] #### BMP, GFR #### [address] [address] Urea nitrogen/Creatinine [Mass ratio] 15.2 ratio Normal 10.0-22.0 [facility] ([place] Comment on above: Performed By: #### C BC, ADIFF, ANEU #### [address] [address] #### BMP, GFR #### [address] [address] CBCon 06-06-2019 Erythrocyte distribution width (RBC) [Ratio] 13.6 % Normal 11.5-15.5 [facility] ([place] Comment on above: Performed By: #### C STEPHANIE KRISHNAMURTHY, ANEU #### [place] [address] #### BMP, GFR #### [address] [address] Hematocrit (Bld) [Volume fraction] 27.0 % Low 34.0-46.0 [facility] ([place]) Comment on above: Performed By: #### C STEPHANIE KRISHNAMURTHY, ANEU #### [address] [address] #### BMP, GFR #### [address] [address] Hemoglobin (Bld) [Mass/Vol] 9.2 G/dL Low 12.0-16.0 [facility] ([place] Comment on above: Performed By: #### C STEPHANIE KRISHNAMURTHY, ANEU #### [place] [address] #### BMP, GFR #### [address] [address] MCH (RBC) [Entitic mass] 30.0 pg Normal 27.0-33.0 [facility] ([place] Comment on above: Performed By: #### C STEPHANIE KRISHNAMURTHY, ANEU #### [place] [address] #### BMP, GFR #### [address] [address] MCHC (RBC) [Mass/Vol] 34.1 G/dL Normal 32.0-36.0 [facility] ([place]) Comment on above: Performed By: #### C STEPHANIE KRISHNAMURTHY, ANEU #### [place] [address] #### BMP, GFR #### [address] [address] MCV (RBC) [Entitic vol] 88.0 fL Normal 80.0-99.0 [facility] ([place] Comment on above: Performed By: #### C BC, ADIFF, ANEU #### [address] [address] #### BMP, GFR #### [address] [address] Platelet mean volume (Bld) [Entitic vol] 8.2 fL Normal 6.6-10.5 [facility] ([place] Comment on above: Performed By: #### C BC, ADIFF, ANEU #### [place] [address] #### BMP, GFR #### [address] [address] Platelets (Bld) [#/Vol] 155 10 3/mcL Normal 150-450 [facility] ([place] Comment on above: Performed By: #### C BC, ADIFF, ANEU #### [place] [address] #### BMP, GFR #### [address] [address] RBC (Bld) [#/Vol] 3.07 10 6/mcL Low 4.10-5.30 [facility] ([place] Comment on above: Performed By: #### C BC, ADIFF, ANEU #### [place] [address] #### BMP, GFR #### [address] [address] WBC (Bld) [#/Vol] 7.70 10 3/mcL Normal 4.50-10.80 [facility] ([place] Comment on above: Performed By: #### C BC, ADIFF, ANEU #### [place] [address] #### BMP, GFR #### [address] [address] XR CHEST 1 VIEWon 06-06-2019 XR CHEST [...] AM Sign Date: 06/06/2019 6:40:06 AM Normal [facility] ([place]) .Auto Diffon 06-05-2019 Ammonia (P) [Mass/Vol] 1.20 10 3/mcL Normal 0.09-1.40 [facility] ([place] Comment on above: Performed By: #### C STEPHANIE KRISHNAMURTHY, ANEU #### [place] [address] #### BMP, GFR #### [address] [address] Basophils (Bld) [#/Vol] 0.00 10 3/mcL Normal 0.00-0.27 [facility] ([place] Comment on above: Performed By: #### C STEPHANIE KRISHNAMURTHY, ANEU #### [place] [address] #### BMP, GFR #### [address] [address] Basophils/100 WBC (Bld) 0.4 % Normal 0.0-2.5 [facility] ([place] Comment on above: Performed By: #### C BCBRYANIFF, ANEU #### [place] [address] #### BMP, GFR #### [address] [address] Eosinophils (Bld) [#/Vol] 0.10 10 3/mcL Normal 0.00-0.65 [facility] ([place] Comment on above: Performed By: #### C BCSTEPHANIE, ANEU #### [address] [address] #### BMP, GFR #### [address] [address] Eosinophils/100 WBC (Bld) 0.6 % Normal 0.0-6.0 [facility] ([place]) Comment on above: Performed By: #### C BC, ADIFF, ANEU #### [address] [address] #### BMP, GFR #### [address] [address] Lymphocytes (Bld) [#/Vol] 1.10 10 3/mcL Normal 0.90-4.32 [facility] ([place]) Comment on above: Performed By: #### C BC, ADIFF, ANEU #### [address] [address] #### BMP, GFR #### [address] [address] Lymphocytes/100 WBC (Bld) 9.5 % Low 20.0-40.0 [facility] ([place]) Comment on above: Performed By: #### C BC, ADIFF, ANEU #### [address] [address] #### BMP, GFR #### [address] [address] Monocytes/100 WBC (Bld) 9.9 % Normal 2.0-13.0 [facility] ([place]) Comment on above: Performed By: #### C BC, ADIFF, ANEU #### [address] [address] #### BMP, GFR #### [address] [address] Neutrophils/100 WBC (Bld) 79.6 % High 50.0-75.0 [facility] ([place] Comment on above: Performed By: #### C BC, ADIFF, ANEU #### [address] [address] #### BMP, GFR #### [address] [address] .GFRon 06-05-2019 GFR >[address] [facility] ([place] Comment on above: Result Comment: GFR Population [...] Performed By: #### C BCSTEPHANIE, ANEU #### [address] [address] #### BMP, GFR #### [address] [address] GFR Non- >60 Normal [facility] ([place] Comment on above: Result Comment: GFR Population [...] By: #### C BC, ADIFF, ANEU #### [address] [address] #### BMP, GFR #### [address] [address] .Morphon 06-05-2019 Platelets (Bld) [#/Vol] Slt Decreased Normal [facility] ([place] Comment on above: Performed By: #### C BC, ADIFF, ANEU #### [place] [address] #### BMP, GFR #### [address] [address] RBC morphology finding Nom (Bld) Normal Normal [facility] ([place] Comment on above: Performed By: #### C BC, ADIFF, ANEU #### [place] [address] #### BMP, GFR #### [place] [address] .NEUABSon 06-05-2019 Neutrophils (Bld) [#/Vol] 9.30 10 3/mcL High 2.25-8.10 [facility] ([place] Comment on above: Performed By: #### C BCBRYANIFF, ANEU #### [place] [address] #### BMP, GFR #### [address] [address] BMPon 06-05-2019 Calcium [Mass/Vol] 8.2 mg/dL Low 8.4-10.1 [facility] ([place] Comment on above: Performed By: #### C BCBRYANIFF, ANEU #### [place] [address] #### BMP, GFR #### [place] [address] CO2 [Moles/Vol] 23 mmol/L Normal 22-32 [facility] ([place] Comment on above: Performed By: #### C BC, ADIFF, ANEU #### [place] [address] #### BMP, GFR #### [place] [id number] Creatinine [Mass/Vol] 0.65 mg/dL Normal 0.50-1.20 [facility] ([place] Comment on above: Performed By: #### C BC, ADIFF, ANEU #### [address] [address] #### BMP, GFR #### [address] [address] Electrolyte Balance 11.0 mEq/L Normal 4.0-15.0 [facility] ([place] Comment on above: Performed By: #### C BC, ADIFF, ANEU #### [address] [address] #### BMP, GFR #### [address] [address] Glucose [Mass/Vol] 114 mg/dL Normal 82-115 [facility] ([place] Comment on above: Performed By: #### C BC, ADIFF, ANEU #### [address] [address] #### BMP, GFR #### [address] [address] Potassium [Moles/Vol] 4.2 mmol/L Normal 3.5-5.0 [facility] ([place] Comment on above: Performed By: #### C BC, ADIFF, ANEU #### [address] [address] #### BMP, GFR #### [address] [address] Urea nitrogen [Mass/Vol] 9.0 mg/dL Normal 8.0-22.0 [facility] ([place] Comment on above: Performed By: #### C BC, ADIFF, ANEU #### [address] [address] #### BMP, GFR #### [address] [address] Urea nitrogen/Creatinine [Mass ratio] 13.8 ratio Normal 10.0-22.0 [facility] ([place] Comment on above: Performed By: #### C BC, ADIFF, ANEU #### [address] [address] #### BMP, GFR #### [address] [address] Chloride [Moles/Vol] 107 mmol/L Normal 98-110 [facility] ([place] Comment on above: Performed By: #### C BC, ADIFF, ANEU #### [address] [address] #### BMP, GFR #### [address] [address] Sodium [Moles/Vol] 141 mmol/L Normal 136-145 [facility] ([place] Comment on above: Performed By: #### C BC, ADIFF, ANEU #### [address] [address] #### BMP, GFR #### [address] [address] CBCon 06-05-2019 Platelet mean volume (Bld) [Entitic vol] 9.1 fL Normal 6.6-10.5 [facility] ([place] Comment on above: Performed By: #### C BRYAN KRISHNAMURTHYIFF, ANEU #### [address] [address] #### BMP, GFR #### [address] [address] Platelets (Bld) [#/Vol] 143 10 3/mcL Low 150-450 [facility] ([place] Comment on above: Performed By: #### STEPHANIE JOHNSON, ANEU #### [address] [address] #### BMP, GFR #### [address] [address] Erythrocyte distribution width (RBC) [Ratio] 14.0 % Normal 11.5-15.5 [facility] ([place] Comment on above: Performed By: #### Lio KRISHNAMURTHY, ADIFF, ANEU #### [address] [address] #### BMP, GFR #### [address] [address] Hematocrit (Bld) [Volume fraction] 30.7 % Low 34.0-46.0 [facility] ([place] Comment on above: Performed By: #### C BC, ADIFF, ANEU #### [place] [address] #### BMP, GFR #### [address] [address] Hemoglobin (Bld) [Mass/Vol] 10.7 G/dL Low 12.0-16.0 [facility] ([place] Comment on above: Performed By: #### C BC, ADIFF, ANEU #### [place] [address] #### BMP, GFR #### [place] [address] MCH (RBC) [Entitic mass] 30.4 pg Normal 27.0-33.0 [facility] ([place] Comment on above: Performed By: #### C BC, ADIFF, ANEU #### [place] [address] #### BMP, GFR #### [address] [address] MCHC (RBC) [Mass/Vol] 34.8 G/dL Normal 32.0-36.0 [facility] ([place] Comment on above: Performed By: #### C BC, ADIFF, ANEU #### [place] [address] #### BMP, GFR #### [place] [address] MCV (RBC) [Entitic vol] 87.6 fL Normal 80.0-99.0 [facility] ([place] Comment on above: Performed By: #### C BC, ADIFF, ANEU #### [place] [address] #### BMP, GFR #### [address] [address] RBC (Bld) [#/Vol] 3.50 10 6/mcL Low 4.10-5.30 [facility] ([place] Comment on above: Performed By: #### C BC, ADIFF, ANEU #### [place] [address] [place], [place] [address] #### BMP, GFR #### [address] [address] WBC (Bld) [#/Vol] 11.60 10 3/mcL High 4.50-10.80 [facility] ([place] Comment on above: Performed By: #### C BC, ADIFF, ANEU #### [place] [address] [place], [place] [address] #### BMP, GFR #### [place] [address] [place] [address] XR CHEST 1 VIEWon 06-05-2019 XR CHEST [...] AM Sign Date: 06/05/2019 7:45:20 AM Normal [facility] ([place] XR CHEST 1 VIEW ORIGINAL PORTABLE UPRIGHT [...] PM Sign Date: 06/04/2019 11:53:30 PM Normal [facility] ([place] .Auto Diffon 06-04-2019 Ammonia (P) [Mass/Vol] 0.90 10 3/mcL Normal 0.09-1.40 [facility] ([place] Comment on above: Performed By: #### C BC, ADIFF, ANEU #### [place] [address] #### BMP, GFR #### [address] [address] Basophils (Bld) [#/Vol] 0.00 10 3/mcL Normal 0.00-0.27 [facility] ([place] Comment on above: Performed By: #### C BC, ADIFF, ANEU #### [place] [address] #### BMP, GFR #### [address] [address] Basophils/100 WBC (Bld) 0.3 % Normal 0.0-2.5 [facility] ([place] Comment on above: Performed By: #### C BC, ADIFF, ANEU #### [place] [address] #### BMP, GFR #### [address] [address] Eosinophils (Bld) [#/Vol] 0.00 10 3/mcL Normal 0.00-0.65 [facility] ([place] Comment on above: Performed By: #### C BC, ADIFF, ANEU #### [place] [address] #### BMP, GFR #### [address] [address] Eosinophils/100 WBC (Bld) 0.1 % Normal 0.0-6.0 [facility] ([place]) Comment on above: Performed By: #### C BC, ADIFF, ANEU #### [address] [address] #### BMP, GFR #### [address] [address] Lymphocytes (Bld) [#/Vol] 0.90 10 3/mcL Normal 0.90-4.32 [facility] ([place]) Comment on above: Performed By: #### C BC, ADIFF, ANEU #### [address] [address] #### BMP, GFR #### [address] [address] Lymphocytes/100 WBC (Bld) 10.3 % Low 20.0-40.0 [facility] ([place]) Comment on above: Performed By: #### C BC, ADIFF, ANEU #### [place] [address] #### BMP, GFR #### [address] [address] Monocytes/100 WBC (Bld) 9.5 % Normal 2.0-13.0 [facility] ([place] Comment on above: Performed By: #### C BC, ADIFF, ANEU #### [address] [address] #### BMP, GFR #### [address] [address] Neutrophils/100 WBC (Bld) 79.8 % High 50.0-75.0 [facility] ([place] Comment on above: Performed By: #### C BC, ADIFF, ANEU #### [address] [address] #### BMP, GFR #### [address] [address] .GFRon 06-04-2019 GFR >[address] [facility] ([place] Comment on above: Result Comment: GFR Population [...] By: #### C BC, ADIFF, ANEU #### [address] [address] #### BMP, GFR #### [address] [address] GFR Non- >60 Normal [facility] ([place] Comment on above: Result Comment: GFR Population [...] By: #### C BC, ADIFF, ANEU #### [address] [address] #### BMP, GFR #### [address] [address] .NEUABSon 06-04-2019 Neutrophils (Bld) [#/Vol] 7.20 10 3/mcL Normal 2.25-8.10 [facility] ([place] Comment on above: Performed By: #### C BC, ADIFF, ANEU #### [address] [address] #### BMP, GFR #### [address] [address] BMPon 06-04-2019 Calcium [Mass/Vol] 8.8 mg/dL Normal 8.4-10.1 [facility] ([place] Comment on above: Performed By: #### C BC, ADIFF, ANEU #### [address] [address] #### BMP, GFR #### [address] [address] Chloride [Moles/Vol] 109 mmol/L Normal 98-110 [facility] ([place] Comment on above: Performed By: #### C BC, ADIFF, ANEU #### [place] [address] #### BMP, GFR #### [place] [address] CO2 [Moles/Vol] 25 mmol/L Normal 22-32 [facility] ([place] Comment on above: Performed By: #### C BC, ADIFF, ANEU #### [place] [address] #### BMP, GFR #### [place] [address] Creatinine [Mass/Vol] 0.82 mg/dL Normal 0.50-1.20 [facility] ([place] Comment on above: Performed By: #### C BC, ADIFF, ANEU #### [place] [address] #### BMP, GFR #### [address] [address] Electrolyte Balance 8.0 mEq/L Normal 4.0-15.0 [facility] ([place] Comment on above: Performed By: #### C BC, ADIFF, ANEU #### [place] [address] #### BMP, GFR #### [place] [address] Glucose [Mass/Vol] 132 mg/dL High 82-115 [facility] ([place] Comment on above: Performed By: #### C BC, ADIFF, ANEU #### [address] [address] #### BMP, GFR #### [address] [address] Potassium [Moles/Vol] 4.3 mmol/L Normal 3.5-5.0 [facility] ([place] Comment on above: Performed By: #### C BC, ADIFF, ANEU #### [address] [address] #### BMP, GFR #### [address] [address] Sodium [Moles/Vol] 142 mmol/L Normal 136-145 [facility] ([place] Comment on above: Performed By: #### C BC, ADIFF, ANEU #### [address] [address] #### BMP, GFR #### [address] [address] Urea nitrogen [Mass/Vol] 12.0 mg/dL Normal 8.0-22.0 [facility] ([place] Comment on above: Performed By: #### C BC, ADIFF, ANEU #### [address] [address] #### BMP, GFR #### [address] [address] Urea nitrogen/Creatinine [Mass ratio] 14.6 ratio Normal 10.0-22.0 [facility] ([place] Comment on above: Performed By: #### C BC, ADIFF, ANEU #### [address] [address] #### BMP, GFR #### [address] [address] CBCon 06-04-2019 Erythrocyte distribution width (RBC) [Ratio] 14.0 % Normal 11.5-15.5 [facility] ([place] Comment on above: Performed By: #### C BC, ADIFF, ANEU #### [address] [address] #### BMP, GFR #### [address] [address] Hematocrit (Bld) [Volume fraction] 38.5 % Normal 34.0-46.0 [facility] ([place] Comment on above: Performed By: #### C BC, ADIFF, ANEU #### [place] [address] #### BMP, GFR #### [address] [address] Hemoglobin (Bld) [Mass/Vol] 13.0 G/dL Normal 12.0-16.0 [facility] ([place]) Comment on above: Performed By: #### C BC, ADIFF, ANEU #### [place] [address] #### BMP, GFR #### [address] [address] MCH (RBC) [Entitic mass] 30.1 pg Normal 27.0-33.0 [facility] ([place] Comment on above: Performed By: #### C RAGHU, ADIFF, ANEU #### [place] [address] #### BMP, GFR #### [address] [address] MCHC (RBC) [Mass/Vol] 33.7 G/dL Normal 32.0-36.0 [facility] ([place]) Comment on above: Performed By: #### C BC, ADIFF, ANEU #### [address] [address] #### BMP, GFR #### [address] [address] MCV (RBC) [Entitic vol] 89.5 fL Normal 80.0-99.0 [facility] ([place] Comment on above: Performed By: #### C BC, ADIFF, ANEU #### [place] [address] #### BMP, GFR #### [address] [address] Platelet mean volume (Bld) [Entitic vol] 7.6 fL Normal 6.6-10.5 [facility] ([place] Comment on above: Performed By: #### C BC, ADIFF, ANEU #### [place] [address] #### BMP, GFR #### [address] [address] Platelets (Bld) [#/Vol] 197 10 3/mcL Normal 150-450 [facility] ([place] Comment on above: Performed By: #### C BC, ADIFF, ANEU #### [place] [address] #### BMP, GFR #### [address] [address] RBC (Bld) [#/Vol] 4.31 10 6/mcL Normal 4.10-5.30 [facility] ([place] Comment on above: Performed By: #### C BC, ADIFF, ANEU #### [place] [address] #### BMP, GFR #### [address] [address] WBC (Bld) [#/Vol] 9.00 10 3/mcL Normal 4.50-10.80 [facility] ([place] Comment on above: Performed By: #### C BC, ADIFF, ANEU #### [place] [address] #### BMP, GFR #### [address] [address] [address] ANKLE W/O CONTRAST RIGHTo n 06-04-2019 [...] PM Sign Date: 06/04/2019 12:03:00 AM Normal [facility] ([place] WRIST W/O CONTRAST RIGHTo n 06-04-2019 [...] AM Sign Date: 06/04/2019 12:04:55 AM Normal [facility] ([place]) PROon 06-04-2019 INR Coag (PPP) [Relative time] 1.0 {INR} Normal [facility] ([place]) Comment on above: Result Comment: [employer] (CHEST, 1992, [id number]) recommended therapeutic range for oral anticoagulant therapy is: LOW RISK: Prophylaxis of venous thrombosis INR: 2.0-3.0 Treatment of pulmonary embolism 2.0-3.0 Prevention of systemic embolism 2.0-3.0 HIGH RISK: Mechanical prosthetic valves 2.5-3.5 Performed By: #### C STEPHANIE KRISHNAMURTHY ANEU #### [place] [address] #### BMP, GFR #### [place] [address] PT Coag (PPP) [Time] 12.0 s Normal 9.0-14.6 [facility] ([place]) Comment on above: Result Comment: Effe ctive 03/28/08, Protime results may be affected by some antibiotics (i.e. Ciprofloxacin, Azithromycin, Bactrim) which may potentiate the action of oral anticoagulants, with further increases in Protime/INR. Performed By: #### C STEPHANIE KRISHNAMURTHY ANEU #### [place] [address] #### BMP, GFR #### [place] [address] TABOon 06-04-2019 ABO/Rh Interp Negative [facility] ([place]) Comment on above: Performed By: #### C STEPHANIE KRISHNAMURTHY ANEU #### [place] [address] #### BMP, GFR #### [place] [address] TABSon 06-04-2019 Antibody Screen Tango Negative Normal [facility] ([place]) Comment on above: Performed By: #### C BC, ADIFF, ANEU #### [place] [address] [place], [place] [address] #### BMP, GFR #### [place] [id number] [place] [address] XR CHEST 1 VIEWon 06-04-2019 XR CHEST [...] 5:25:08 AM Sign Date: 06/04/2019 5:25:45 AM Normal [facility] ([place]) XR FLUORO < 1HR TECH TIMEon 06-04-2019 XR FLUORO < 1HR TECH TIME ORIGINAL Intraoperative fluoroscopy and image intensifier views of the right ankle Clinical Statement: rt ankle fx, internal fixation Comparison: Radiographs 06/03/2019 FINDINGS: Technical Details: Tech Time - < 1hr\X0D0A\1120-2p total for both ; C-Arm # - 7; Total Dose - .85mGy; Images - 6; Product Distribution Specialist - nmk; History - rt ankle fx, orif; Fluoro Time - 25sec; Fluoroscopic images were archived. These show internal fixation of previously seen fractures of the ankle. Please see intraoperative notes for additional details of the procedure. Interpreted By: Alden Sarkra MD Preliminary Report By: Alden Sarkar MD Electronically Signed By: Alden Sarkar MD Dictated Date: 06/04/2019 3:29:23 PM Prelim Date: 06/04/2019 3:29:23 PM Sign Date: 06/04/2019 3:30:03 PM Normal [facility] ([place]) XR FLUORO 1-2 HRS TECH TIMEo n 06-04-2019 XR FLUORO 1-2 HRS TECH TIME ORIGINAL Intraoperative fluoroscopy and image intensifier views of the right wrist Clinical Statement: rt wrist fx, internal fixation Comparison: 06/03/2019 FINDINGS: Technical Details: Tech Time - 1120-2p total for both exams; C-Arm # - 7; Total Dose - 1.71mGy; Images - 5; Product Distribution Specialist - nmk; History - rt wrist fx; Fluoro Time - 1min 3sec; Fluoroscopic images were archived. These show internal fixation of a distal radial fracture with a plate and screws. Please see intraoperative notes for additional details of the procedure. Interpreted By: Alden Sarkar MD Preliminary Report By: Aldne Sarkar MD Electronically Signed By: Alden Sarkar MD Dictated Date: 06/04/2019 3:36:17 PM Prelim Date: 06/04/2019 3:36:17 PM Sign Date: 06/04/2019 3:36:44 PM Normal [facility] ([place]) XR HAND MINIMUM 3 VIEWS LEFT on [...] AM Sign Date: 06/04/2019 9:53:38 AM Normal [facility] ([place]) .Auto Diffon 06-03-2019 Ammonia (P) [Mass/Vol] 0.60 10 3/mcL Normal 0.15-1.00 [facility] ([place]) Comment on above: Performed By: #### C BC, ADIFF, ANEU #### [facility] [address] [place], [place] [address] #### BMP, GFR #### [address] [address] Basophils (Bld) [#/Vol] 0.00 10 3/mcL Normal 0.00-0.19 [facility] ([place]) Comment on above: Performed By: #### C BC, ADIFF, ANEU #### [address] [address] #### BMP, GFR #### [address] [address] Basophils/100 WBC (Bld) 0.4 % Normal 0.0-2.5 [facility] ([place]) Comment on above: Performed By: #### C BC, ADIFF, ANEU #### [address] [address] #### BMP, GFR #### [address] [address] Eosinophils (Bld) [#/Vol] 0.10 10 3/mcL Normal 0.00-0.40 [facility] ([place]) Comment on above: Performed By: #### C BC, ADIFF, ANEU #### [place] [address] #### BMP, GFR #### [address] [address] Eosinophils/100 WBC (Bld) 1.0 % Normal 0.0-7.0 [facility] ([place]) Comment on above: Performed By: #### C BC, ADIFF, ANEU #### [address] [address] #### BMP, GFR #### [address] [address] Lymphocytes (Bld) [#/Vol] 1.20 10 3/mcL Normal 0.77-3.85 [facility] ([place]) Comment on above: Performed By: #### C BC, ADIFF, ANEU #### [address] [address] #### BMP, GFR #### [address] [address] Lymphocytes/100 WBC (Bld) 12.6 % Normal 10.0-50.0 [facility] ([place]) Comment on above: Performed By: #### C BC, ADIFF, ANEU #### [address] [place] [address] #### BMP, GFR #### [address] [address] Monocytes/100 WBC (Bld) 6.3 % Normal 1.7-13.0 [facility] ([place]) Comment on above: Performed By: #### C BC, ADIFF, ANEU #### [address] [address] #### BMP, GFR #### [facility] [address] [place] [address] Neutrophils/100 WBC (Bld) 79.7 % Normal 37.0-80.0 [facility] ([place]) Comment on above: Performed By: #### C BC, ADIFF, ANEU #### [address] [address] #### BMP, GFR #### [address] [address] .GFRon 06-03-2019 GFR 78 ml/min/1.73sqm Normal [facility] ([place]) Comment on above: Result Comment: [...] By: #### C BC, ADIFF, ANEU #### [address] [address] #### BMP, GFR #### [address] [address] GFR Non- 64 ml/min/1.73sqm Normal [facility] ([place]) Comment on above: Result Comment: [...] mL/min/1.73 square meters Performed By: #### C BCBRYANIFF, ANEU #### [place] [address] #### BMP, GFR #### [address] [address] .NEUABSon 06-03-2019 Neutrophils (Bld) [#/Vol] 7.90 10 3/mcL High 2.85-6.16 [facility] ([place]) Comment on above: Performed By: #### C STEPHANIE KRISHNAMURTHY, ANEU #### [place] [id number] #### BMP, GFR #### [address] [address] BMPon 06-03-2019 Calcium [Mass/Vol] 9.2 mg/dL Normal 8.4-10.2 [facility] ([place]) Comment on above: Performed By: #### STEPHANIE JOHNSON, ANEU #### [address] [address] #### BMP, GFR #### [address] [address] Chloride [Moles/Vol] 104 mmol/L Normal 98-107 [facility] ([place]) Comment on above: Performed By: #### Lio BC ADIFF, ANEU #### [address] [address] #### BMP, GFR #### [address] [address] CO2 [Moles/Vol] 30 mmol/L Normal 23-31 [facility] ([place]) Comment on above: Performed By: #### C BC, ADIFF, ANEU #### [address] [address] #### BMP, GFR #### [address] [address] Creatinine [Mass/Vol] 0.85 mg/dL Normal 0.55-1.02 [facility] ([place]) Comment on above: Performed By: #### C BC, ADIFF, ANEU #### [address] [address] #### BMP, GFR #### [address] [address] Electrolyte Balance 9.0 mEq/L Normal [facility] ([place]) Comment on above: Performed By: #### C BC, ADIFF, ANEU #### [address] [address] #### BMP, GFR #### [address] [address] Glucose [Mass/Vol] 135 mg/dL High 83-110 [facility] ([place]) Comment on above: Performed By: #### C BC, ADIFF, ANEU #### [address] [address] #### BMP, GFR #### [address] [address] Potassium [Moles/Vol] 4.1 mmol/L Normal 3.5-5.1 [facility] ([place] Comment on above: Performed By: #### C BC, ADIFF, ANEU #### [address] [address] #### BMP, GFR #### [address] [address] Sodium [Moles/Vol] 143 mmol/L Normal 136-145 [facility] ([place] Comment on above: Performed By: #### C BC, ADIFF, ANEU #### [address] [address] #### BMP, GFR #### [address] [address] Urea nitrogen [Mass/Vol] 14 mg/dL Normal 7-18 [facility] ([place] Comment on above: Performed By: #### C BC, ADIFF, ANEU #### [address] [address] #### BMP, GFR #### [address] [address] Urea nitrogen/Creatinine [Mass ratio] 16 ratio Normal 7-27 [facility] ([place] Comment on above: Performed By: #### C BC, ADIFF, ANEU #### [address] [address] #### BMP, GFR #### [address] [address] CBCon 06-03-2019 Erythrocyte distribution width (RBC) [Ratio] 14.3 % Normal 11.5-14.5 [facility] ([place] Comment on above: Performed By: #### C BC, ADIFF, ANEU #### [address] [address] #### BMP, GFR #### [address] [address] Hematocrit (Bld) [Volume fraction] 38.5 % Normal 37.0-47.0 [facility] ([place] Comment on above: Performed By: #### C BC, ADIFF, ANEU #### [address] [address] #### BMP, GFR #### [address] [address] Hemoglobin (Bld) [Mass/Vol] 13.0 G/dL Normal 12.0-16.0 [facility] ([place] Comment on above: Performed By: #### C BC, ADIFF, ANEU #### [address] [address] #### BMP, GFR #### [address] [address] MCH (RBC) [Entitic mass] 30.0 pg Normal 27.0-31.2 [facility] ([place] Comment on above: Performed By: #### C STEPHANIE KRISHNAMURTHY, ANEU #### [address] [address] #### BMP, GFR #### [address] [address] MCHC (RBC) [Mass/Vol] 33.8 G/dL Normal 33.0-37.0 [facility] ([place] Comment on above: Performed By: #### C STEPHANIE KRISHNAMURTHY, ANEU #### [place] [address] #### BMP, GFR #### [place] [address] MCV (RBC) [Entitic vol] 88.6 fL Normal 80.0-94.0 [facility] ([place] Comment on above: Performed By: #### C STEPHANIE KRISHNAMURTHY, ANEU #### [place] [address] #### BMP, GFR #### [address] [address] Platelet mean volume (Bld) [Entitic vol] 8.1 fL Normal 7.4-10.4 [facility] ([place]) Comment on above: Performed By: #### C STEPHANIE KRISHNAMURTHY, ANEU #### [place] [address] #### BMP, GFR #### [address] [address] Platelets (Bld) [#/Vol] 221 10 3/mcL Normal 130-400 [facility] ([place] Comment on above: Performed By: #### STEPHANIE JOHNSON, ANEU #### [place] [address] #### BMP, GFR #### [address] [address] RBC (Bld) [#/Vol] 4.35 10 6/mcL Normal 4.20-5.40 [facility] ([place]) Comment on above: Performed By: #### C BC, ADIFF, ANEU #### [place] [address] [place], [place] [address] #### BMP, GFR #### [place] [address] [place] [address] WBC (Bld) [#/Vol] 9.90 10 3/mcL Normal 4.60-10.80 [facility] ([place]) Comment on above: Performed By: #### C BC, ADIFF, ANEU #### [place] [address] [place], [place] [address] #### BMP, GFR #### [place] [address] [place] [address] ABD/PELVIS W/ IV CONTRAST ONLYon 06-03-2019 [...] Tree Roberson DO Electronically Signed By: Berna Clacny MD Dictated Date: 06/03/2019 4:27:23 PM Prelim Date: 06/03/2019 4:31:56 PM Sign Date: 06/03/2019 4:57:41 PM Normal [facility] ([place] HEAD OR BRAIN W/O CONTRAS Ton [...] PM Sign Date: 06/03/2019 4:10:32 PM Normal [facility] ([place] SPINE CERVICAL W/O CONTRA STon 06-03-2019 [...] PM Sign Date: 06/03/2019 4:35:12 PM Normal [facility] ([place] CT THORAX W/ CONTRASTon 05-16 CT THORAX [...] PM Sign Date: 06/03/2019 4:53:52 PM Normal [facility] ([place]) XR ANKLE AND FOOT 6 VIEWS [facility] 06-03-2019 XR ANKLE AND FOOT 6 [...] PM Sign Date: 06/03/2019 3:45:45 PM Normal [facility] ([place]) XR ANKLE MINIMUM 3 VIEWS RIG HTon [...] PM Sign Date: 06/03/2019 7:11:45 PM Normal [facility] ([place]) XR CHEST 1 VIEWon 06-03-2019 XR CHEST [...] PM Sign Date: 06/03/2019 6:20:15 PM Normal [facility] ([place] XR CHEST 1 VIEW ORIGINAL XR CHEST [...] PM Sign Date: 06/03/2019 3:47:37 PM Normal [facility] ([place]) XR FOREARM 2 VIEWS RIGHTon 0 06-03-2019 [...] PM Sign Date: 06/03/2019 7:13:59 PM Normal [facility] ([place] XR KNEE THREE VIEWS RIGHTon 06-03-2019 XR [...] PM Sign Date: 06/03/2019 7:12:24 PM Normal [facility] ([place] XR PELVIS 1 OR 2 VIEWSon XR [...] PM Sign Date: 06/03/2019 3:58:51 PM Normal [facility] ([place]) XR WRIST TWO VIEWS RIGHTon 0 06-03-2019 [...] PM Sign Date: 06/03/2019 3:56:05 PM Normal [facility] ([place]) C-REACTIVE PROTEIN ([id number])Or dered By: Peer Tutor on 10-15-2017 CRP mass conc 1.0 mg/L Normal 0.0-4.9 [facility] Internal Medicine Work Phone: Comment on above: PATIENT NOT FASTINGP ERFORMED BY: CB [facility] Rjktva7695 [facility] [id number] CBC (AUTO) ([id number])Ordered By : Peer Tutor on 10-15-2017 Erythrocyte distribution width Ratio (RBC) 13.8 % Normal 12.3-15.4 [facility] Internal Medicine Work Phone: Comment on above: PATIENT NOT FASTINGP ERFORMED BY: CB [facility] Esbomn8609 [facility] [id number] Hematocrit Volume Fraction (Bld) 40.2 % Normal 34.0-46.6 [facility] Internal Medicine Work Phone: Comment on above: PATIENT NOT FASTINGP ERFORMED BY: CB [facility] Ehvggi9358 [facility] [id number] Hemoglobin mass conc (Bld) 13.4 g/dL Normal 11.1-15.9 [facility] Internal Medicine Work Phone: Comment on above: PATIENT NOT FASTINGP ERFORMED BY: CB [facility] Kthnfl9975 [facility] [id number] MCH Entitic mass (RBC) 29.8 pg Normal 26.6-33.0 [facility] Internal Medicine Work Phone: Comment on above: PATIENT NOT FASTINGP ERFORMED BY: CB [facility] Oxclur0976 [facility] [id number] MCHC mass conc (RBC) 33.3 g/dL Normal 31.5-35.7 [facility] Internal Medicine Work Phone: Comment on above: PATIENT NOT FASTINGP ERFORMED BY: CB [facility] Fgmwhb4998 [facility] [id number] MCV Entitic volume (RBC) 90 fL Normal 79-97 [facility] Work Phone: Comment on above: PATIENT NOT FASTINGP ERFORMED BY: ORTIZ [facility] Rajpfq9650 [address] RoadDublin [place] [id number] Platelets #/vol (Bld) 211 {x10E3/uL} Normal 150-379 [facility] Work Phone: Comment on above: PATIENT NOT FASTINGP ERFORMED BY: ORTIZ [facility] Deiqqa7679 [address] RoadDublin [place] [id number] RBC #/vol (Bld) 4.49 {x10E6/uL} Normal 3.77-5.28 [facility] Work Phone: Comment on above: PATIENT NOT FASTINGP ERFORMED BY: ORTIZ LabKellieaustyn Qrhpbj7785 [address] RoadDublin [place] [id number] WBC #/vol (Bld) 4.9 {x10E3/uL} Normal 3.4-10.8 Compr [facility] [[email or web address]] Internal Medicine Work Phone: Comment on above: PATIENT NOT FASTINGP ERFORMED BY: ORTIZ LabCoaustyn CroweOcowmu9653 [address] Roadblin [place] [id number] METABOLIC PANEL, COMPREHENSI VE ([id number])Ordered By: Peer Tutor on 10-15-2017 Albumin mass conc 3.9 g/dL Normal 3.5-4.8 Compreh [facility] Internal Medicine Work Phone: Comment on above: PATIENT NOT FASTINGP ERFORMED BY: ORTIZ [facility] Iskzsl8022 [address] [facility] Centerblin [place] [id number] Albumin/Globulin mass ratio 1.6 {ratio} Normal 1.2-2.2 [facility] Work Phone: Comment on above: PATIENT NOT FASTINGP ERFORMED BY: ORTIZ [facility] Uuksnf2167 [address] RoadDublin [place] [id number] ALP enzyme act/vol 78 [iU]/L Normal 39-117 Compre [facility] Internal Medicine Work Phone: Comment on above: PATIENT NOT FASTINGP ERFORMED BY: ORTIZ [facility] Ogxqqa6217 [address] RoadDublin [place] [id number] ALT enzyme act/vol 18 [iU]/L Normal 0-32 Compre [facility] Internal Medicine Work Phone: Comment on above: PATIENT NOT FASTINGP ERFORMED BY: CB [facility] Vpsald8248 [address] RoadDublin [place] [id number] AST enzyme act/vol 25 [iU]/L Normal 0-40 Compre [facility] Internal Medicine Work Phone: Comment on above: PATIENT NOT FASTINGP ERFORMED BY: CB [facility] Jlooff8131 [address] RoadAsheville Specialty Hospitalin [place] [id number] Bilirubin mass conc 0.4 mg/dL Normal 0.0-1.2 Compr ensive Internal Medicine Work Phone: Comment on above: PATIENT NOT FASTINGP ERFORMED BY: CB [facility] Igkpvc6042 Rodriguez RoadAt[facility] Health Cabarrus [id number] Calcium mass conc 9.5 mg/dL Normal 8.7-10.3 Compreh [facility] Internal [facility] Work Phone: Comment on above: PATIENT NOT FASTINGP ERFORMED BY: CB [facility] Ozgkkl2206 [facility] [id number] Chloride molar conc 102 mmol/L Normal 96-106 Compr ensive Internal Medicine Work Phone: Comment on above: PATIENT NOT FASTINGP ERFORMED BY: CB [facility] Krlzvf7717 [place] [facility] [id number] CO2 molar conc 27 mmol/L Normal 18-29 Comprehens trupti Internal Medicine Work Phone: Comment on above: PATIENT NOT FASTINGP ERFORMED BY: CB [facility] Wrvdta7157 [address] RoadAsheville Specialty Hospitalin [place] [id number] Creatinine mass conc 0.88 mg/dL Normal 0.57-1.00 Comp [facility] Work Phone: Comment on above: PATIENT NOT FASTINGP ERFORMED BY: CB [facility] Kaamyg0091 [address] RoadAsheville Specialty Hospitalin [place] [id number] GFR/1.73 sq M predicted among blacks CKD-EPI vol rate/area (S/P/Bld) 73 mL/min/1.73 Normal [facility] Work Phone: Comment on above: PATIENT NOT FASTINGP ERFORMED BY: CB [facility] Nmlvym4659 [address] RoadDublin [place] [id number] GFR/1.73 sq M predicted among non-blacks CKD-EPI vol rate/area (S/P/Bld) 63 mL/min/1.73 Normal Comprehensiv e Internal Medicine Work Phone: Comment on above: PATIENT NOT FASTINGP ERFORMED BY: CB [facility] Wzyfrc2614 [address] Roadblin [place] [id number] Globulin mass conc (S) 2.4 g/dL Normal 1.5-4.5 Co mprehensive Internal Medicine Work Phone: Comment on above: PATIENT NOT FASTINGP ERFORMED BY: CB [facility] Ewzeob6703 [address] RoadDublin [place] [id number] Glucose mass conc 87 mg/dL Normal 65-99 Compreh ensive Internal Medicine Work Phone: Comment on above: PATIENT NOT FASTINGP ERFORMED BY: CB [facility] Csadbn3260 [address] RoadDublin [place] [id number] Potassium molar conc 4.8 mmol/L Normal 3.5-5.2 Comp rehensive Internal Medicine Work Phone: Comment on above: PATIENT NOT FASTINGP ERFORMED BY: CB [facility] Tqrypx0873 [address] RoadDublin [place] [id number] Protein mass conc 6.3 g/dL Normal 6.0-8.5 Compreh ensive Internal Medicine Work Phone: Comment on above: PATIENT NOT FASTINGP ERFORMED BY: CB [facility] Oyqhsv4289 [address] RoadDublin [place] [id number] Sodium molar conc 143 mmol/L Normal 134-144 Compreh ensive Internal Medicine Work Phone: Comment on above: PATIENT NOT FASTINGP ERFORMED BY: CB [facility] Euhjxr3056 [address] RoadDublin [place] [id number] Urea nitrogen mass conc 10 mg/dL Normal 8-27 [facility] Work Phone: Comment on above: PATIENT NOT FASTINGP ERFORMED BY: ORTIZ [facility] Lwrsxw0999 [address] [facility] Centerbl[facility] [place] [id number] Urea nitrogen/Creatinine mass ratio 11 mg/mg Abnormal 09-10 [facility] Work Phone: Comment on above: PATIENT NOT FASTINGP ERFORMED BY: ORTIZ [facility] Akhzfe1256 [address] Roadblin [place] [id number] SED RATE ERYTHROCYTE ([id number]) Ordered By: Peer Tutor on 10-15-2017 ESR Velocity (Bld) 2 mm/h Normal 0-40 [facility] Internal Medicine Work Phone: Comment on above: PATIENT NOT FASTINGP ERFORMED BY: ORTIZ [facility] Tyehfe6994 [address] [facility]in [place] [id number] CBC W/AUTO DIFF WBC ([id number])O rdered By: Peer Tutor on 09-01-2017 Basophils #/vol (Bld) 0.0 {x10E3/uL} Normal 0.0-0.2 [facility] Work Phone: Comment on above: PATIENT WAS FASTINGP ERFORMED BY: ORTIZ [facility] Whirfm2460 [address] [facility]in [place] [id number] Basophils/100 WBC (Bld) 0 % Normal [facility] Work Phone: Comment on above: PATIENT WAS FASTINGP ERFORMED BY: ORTIZ [facility] Qvadjd0135 [address] [facility] Centerin [place] [id number] Eosinophils #/vol (Bld) 0.1 {x10E3/uL} Normal 0.0-0.4 [facility] Work Phone: Comment on above: PATIENT WAS FASTINGP ERFORMED BY: ORTIZ [facility] Bswzcg8778 [address] [facility]in [place] [id number] Eosinophils/100 WBC (Bld) 1 % Normal [facility] Work Phone: Comment on above: PATIENT WAS FASTINGP ERFORMED BY: ORTIZ [facility] Cwnkvz9747 [address] [facility]in [place] [id number] Erythrocyte distribution width Ratio (RBC) 13.8 % Normal 12.3-15.4 [facility] Work Phone: Comment on above: PATIENT WAS FASTINGP ERFORMED BY: ORTIZ LabCoaustyn CroweDjkzln8742 [facility] [id number] Hematocrit Volume Fraction (Bld) 40.2 % Normal 34.0-46.6 [facility] Work Phone: Comment on above: PATIENT WAS FASTINGP ERFORMED BY: ORTIZ LabKellie Agycfo8019 [facility] [id number] Hemoglobin mass conc (Bld) 13.2 g/dL Normal 11.1-15.9 [facility] Work Phone: Comment on above: PATIENT WAS FASTINGP ERFORMED BY: ORTIZ Crowelin6370 [facility] [id number] Immature granulocytes #/vol (Bld) 0.0 {x10E3/uL} Normal 0.0-0.1 [facility] Work Phone: Comment on above: PATIENT WAS FASTINGP ERFORMED BY: ORTIZ Crowelin6370 [facility] [id number] Immature granulocytes/100 WBC (Bld) 0 % Normal [facility] Work Phone: Comment on above: PATIENT WAS FASTINGP ERFORMED BY: ORTIZ Crowelin6370 [facility] [id number] Lymphocytes #/vol (Bld) 1.3 {x10E3/uL} Normal 0.7-3.1 [facility] Work Phone: Comment on above: PATIENT WAS FASTINGP ERFORMED BY: ORTIZ [facility] Sfrocf5127 [facility] [id number] Lymphocytes/100 WBC (Bld) 29 % Normal [facility] Work Phone: Comment on above: PATIENT WAS FASTINGP ERFORMED BY: ORTIZ LabAleksandr CroweAkahyk7084 [facility] [id number] MCH Entitic mass (RBC) 29.5 pg Normal 26.6-33.0 [facility] [[email or web address]] Internal Medicine Work Phone: Comment on above: PATIENT WAS FASTINGP ERFORMED BY: ORTIZ LabSt[facility] Rdvaxm7501 [address] Roadblin [place] [id number] MCHC mass conc (RBC) 32.8 g/dL Normal 31.5-35.7 Comp [facility] Internal Medicine Work Phone: Comment on above: PATIENT WAS FASTINGP ERFORMED BY: ORTIZ [facility] Vqtzmo1299 [address] RoadDublin [place] [id number] MCV Entitic volume (RBC) 90 fL Normal 79-97 [facility] Work Phone: Comment on above: PATIENT WAS FASTINGP ERFORMED BY: ORTIZ [facility] Bgmgep9140 [address] Roadblin [place] [id number] Monocytes #/vol (Bld) 0.4 {x10E3/uL} Normal 0.1-0.9 [facility] Work Phone: Comment on above: PATIENT WAS FASTINGP ERFORMED BY: ORTIZ LabSt[facility] Ggdryi7225 [address] RoadAsheville Specialty Hospitalin [place] [id number] Monocytes/100 WBC (Bld) 9 % Normal [facility] Work Phone: Comment on above: PATIENT WAS FASTINGP ERFORMED BY: LabSt[facility] Ghxibo0022 [address] Roadblin [place] [id number] Neutrophils #/vol (Bld) 2.7 {x10E3/uL} Normal 1.4-7.0 [facility] Work Phone: Comment on above: PATIENT WAS FASTINGP ERFORMED BY: LabSaint John'S Health SystemGijzcc8275 [address] [facility]in [place] [id number] Neutrophils/100 WBC (Bld) 61 % Normal [facility] Work Phone: Comment on above: PATIENT WAS FASTINGP ERFORMED BY: [facility] Sdpaqr2076 [address] RoadDublin [place] [id number] Platelets #/vol (Bld) 198 {x10E3/uL} Normal 150-379 [facility] Work Phone: Comment on above: PATIENT WAS FASTINGP ERFORMED BY: [facility] Pkahvp0907 [address] RoadDublin [place] [id number] RBC #/vol (Bld) 4.47 {x10E6/uL} Normal 3.77-5.28 [facility] Work Phone: Comment on above: PATIENT WAS FASTINGP ERFORMED BY: CB [facility] Fofwzq4724 [address] RoadDublin [place] [id number] WBC #/vol (Bld) 4.5 {x10E3/uL} Normal 3.4-10.8 [facility]erens[facility] Internal [facility] Work Phone: Comment on above: PATIENT WAS FASTINGP ERFORMED BY: CB [facility] Gpnjfy4332 [address] RoadDublin [place] [id number] LIPID PANEL ([id number])Ordered B y: Peer Tutor on 09-01-2017 Cholesterol in HDL mass conc 59 mg/dL Normal [facility] Work Phone: Comment on above: PATIENT WAS FASTINGP ERFORMED BY: ORTIZ [facility] Laugja8188 Rodriguez RoadDublin [place] [id number] Cholesterol in LDL mass conc 72 mg/dL Normal 0-99 [facility] Work Phone: Comment on above: PATIENT WAS FASTINGP ERFORMED BY: ORTIZ [facility] Tzjxeg9182 [address] RoadDublin [place] [id number] Cholesterol in LDL/Cholesterol in HDL mass ratio 1.2 {ratio_units} Normal 0.0-3.2 [facility] Work Phone: Comment on above: LDL/HDL Ratio Men Wo men 1/2 Avg.Risk 1.0 1.5 Avg.Risk 3.6 3.2 2X Avg.Risk 6.2 5.0 3X Avg.Risk 8.0 6.1 PATIENT WAS FASTINGP ERFORMED BY: CB [facility] Xnkbdc3343 Rodriguez RoadDublin [place] [id number] Cholesterol in VLDL mass conc 18 mg/dL Normal 5-40 [facility] Work Phone: Comment on above: PATIENT WAS FASTINGP ERFORMED BY: CB [facility] Jkhspf7025 [address] RoadDublin [place] [id number] Cholesterol mass conc 149 mg/dL Normal 100-199 [facility] Work Phone: Comment on above: PATIENT WAS FASTINGP ERFORMED BY: ORTIZ [facility] Wjakkf9801 [address] Roadblin [place] [id number] Triglyceride mass conc 92 mg/dL Normal 0-149 Co [facility] Internal Medicine Work Phone: Comment on above: PATIENT WAS FASTINGP ERFORMED BY: ORTIZ [facility] Cxvxiw0620 [address] [facility] Centerblin [place] [id number] METABOLIC PANEL, COMPREHENSI VE (52711)Ordered By: Peer Tutor on 09-01-2017 Albumin mass conc 4.3 g/dL Normal 3.5-4.8 Compreh [facility] Work Phone: Comment on above: PATIENT WAS FASTINGP ERFORMED BY: [facility] Kctqmm2727 [address] [facility] [id number] Albumin/Globulin mass ratio 2.0 {ratio} Normal 1.2-2.2 [facility] Work Phone: Comment on above: PATIENT WAS FASTINGP ERFORMED BY: [facility]6[address] [facility] [id number] ALP enzyme act/vol 71 [iU]/L Normal 39-117 [facility] Internal Medicine Work Phone: Comment on above: PATIENT WAS FASTINGP ERFORMED BY: [facility] Pxeuzz1663 [facility]in [place] [id number] ALT enzyme act/vol 11 [iU]/L Normal 0-32 [facility] Internal Medicine Work Phone: Comment on above: PATIENT WAS FASTINGP ERFORMED BY: [facility]6[address] [facility]in [place] [id number] AST enzyme act/vol 16 [iU]/L Normal 0-40 [facility] Internal Medicine Work Phone: Comment on above: PATIENT WAS FASTINGP ERFORMED BY: [facility] Ibxkjn5632 [address] [facility]in [place] [id number] Bilirubin mass conc 0.4 mg/dL Normal 0.0-1.2 [facility] Internal Medicine Work Phone: Comment on above: PATIENT WAS FASTINGP ERFORMED BY: ORTIZ [facility] Uqguuc3255 [address] RoadDublin [place] [id number] Calcium mass conc 9.5 mg/dL Normal 8.7-10.3 Compreh ensive Internal Medicine Work Phone: Comment on above: PATIENT WAS FASTINGP ERFORMED BY: ORTIZ [facility] Rhszug2064 [address] RoadDublin [place] [id number] Chloride molar conc 102 mmol/L Normal 96-106 Compr ehensive Internal Medicine Work Phone: Comment on above: PATIENT WAS FASTINGP ERFORMED BY: ORTIZ [facility] Hvfygk3760 [address] RoadDublin [place] [id number] CO2 molar conc 27 mmol/L Normal 18-29 Comprehens trupti Internal Medicine Work Phone: Comment on above: PATIENT WAS FASTINGP ERFORMED BY: ORTIZ [facility] Daqzpr1947 [address] RoadDublin [place] [id number] Creatinine mass conc 0.84 mg/dL Normal 0.57-1.00 Comp [facility] Work Phone: Comment on above: PATIENT WAS FASTINGP ERFORMED BY: [facility] Nggcet2709 [address] Roadblin [place] [id number] GFR/1.73 sq M predicted among blacks CKD-EPI vol rate/area (S/P/Bld) 77 mL/min/1.73 Normal [facility] Work Phone: Comment on above: PATIENT WAS FASTINGP ERFORMED BY: [facility] Woozft1908 Rodriguez RoadAsheville Specialty Hospitalin [place] [id number] GFR/1.73 sq M predicted among non-blacks CKD-EPI vol rate/area (S/P/Bld) 67 mL/min/1.73 Normal Comprehensiv e Internal Medicine Work Phone: Comment on above: PATIENT WAS FASTINGP ERFORMED BY: ORTIZ [facility] Fvmuur6264 [address] RoadDublin [place] [id number] Globulin mass conc (S) 2.2 g/dL Normal 1.5-4.5 Co [facility] Work Phone: Comment on above: PATIENT WAS FASTINGP ERFORMED BY: ORTIZ [facility] Ncezmm1805 [address] RoadDublin [place] [id number] Glucose mass conc 88 mg/dL Normal 65-99 Compreh ensive Internal Medicine Work Phone: Comment on above: PATIENT WAS FASTINGP ERFORMED BY: ORTIZ [facility] Bkrdnd1781 [address] RoadDublin [place] [id number] Potassium molar conc 4.3 mmol/L Normal 3.5-5.2 Comp rehensive Internal Medicine Work Phone: Comment on above: PATIENT WAS FASTINGP ERFORMED BY: ORTIZ [facility] Mypjtl8144 [address] RoadDublin [place] [id number] Protein mass conc 6.5 g/dL Normal 6.0-8.5 Compreh ensive Internal Medicine Work Phone: Comment on above: PATIENT WAS FASTINGP ERFORMED BY: ORTIZ [facility] Heotle7260 [address] RoadDublin [place] [id number] Sodium molar conc 143 mmol/L Normal 134-144 Compreh ensive Internal Medicine Work Phone: Comment on above: PATIENT WAS FASTINGP ERFORMED BY: ORTIZ [facility] Egcxje2140 [address] RoadDublin [place] [id number] Urea nitrogen mass conc 13 mg/dL Normal 8-27 [facility] Work Phone: Comment on above: PATIENT WAS FASTINGP ERFORMED BY: ORTIZ [facility] Cnakrr1694 [address] RoadDublin [place] [id number] Urea nitrogen/Creatinine mass ratio 15 mg/mg Normal 12- [facility] Work Phone: Comment on above: PATIENT WAS FASTINGP ERFORMED BY: ORTIZ [facility] Tstrlr1981 [address] RoadDublin [place] [id number] TSH ([id number])Ordered By: Samantha Montelongo on 09-01-2017 Thyrotropin Qn 2.410 {uIU/mL} Normal 0.450-4.50 0 [facility] Work Phone: Comment on above: PATIENT WAS FASTINGP ERFORMED BY: ORTIZ [facility] Qhsqlw0122 [address] RoadDublin [place] [id number] VITAMIN B-12 (CYANOCOBALAMIN ) (41625)Ordered By: Peer Tutor on 09-01-2017 Cobalamin (Vitamin B12) mass conc 311 pg/mL Normal 232-1245 [facility] Work Phone: Comment on above: Please note refere nce interval change PATIENT WAS FASTINGP ERFORMED BY: LANDBAY Qgtowr0068 [facility] [id number] Vitamin D Hydroxy (28501)Ord ered By: Peer Tutor on 09-01-2017 25-Hydroxyvitamin D2+25-Hydroxyvitamin D3 mass conc 33.4 ng/mL Normal 30.0-100.0 [facility] Work Phone: Comment on above: Vitamin D deficiency has been defined by the [place] of[place]icine and an Endocrine Society practice guideline as alevel of serum 25-OH vitamin D less than 20 ng/mL (1,2).The Endocrine Society went on to further define vitamin Dinsufficiency as a level between 21 and 29 ng/mL (2).1. IOM ([place] of Medicine). 2010. Dietary reference intakes for calcium and D. [place]: The National Academies Press.2. Allie MF, Emile NC, Natalie POOLE, et al. Evaluation, treatment, and prevention of vitamin D deficiency: an Endocrine Society clinical practice guideline. JCEM. 2010; 96(7):1911-30. PATIENT WAS FASTINGP ERFORMED BY: Vserv6370 [facility] [id number] Office Visiton 06-05-2017 Dietary management education, guidance, and counseling (procedure) yes Invalid Interpretation Code [facility] Work Phone: Documentation of current medications (procedure) Done Invalid Interpretation Code [facility] Work Phone: Fall risk assessment No Invalid Interpretation Code [facility] Work Phone: Tobacco use CPHS Never smoker Invalid Interpretation Code [facility] Work Phone: CALCIFIDIOL (46053) VIT D 25 Ordered By: Peer Tutor on 12-16-2016 25-Hydroxyvitamin D2+25-Hydroxyvitamin D3 mass conc 37.5 ng/mL Normal 30.0-100.0 [facility] Work Phone: Comment on above: Vitamin D deficiency has been defined by the [place] ofMedicine and an Endocrine Society practice guideline as alevel of serum 25-OH vitamin D less than 20 ng/mL (1,2).The Endocrine Society went on to further define vitamin Dinsufficiency as a level between 21 and 29 ng/mL (2).1. IOM ([place] of Medicine). 2010. Dietary reference intakes for calcium and D. [place]: The National Academies Press.2. Allie MF, Emile [place], Natalie POOLE, et al. Evaluation, treatment, and prevention of vitamin D deficiency: an Endocrine Society clinical practice guideline. JCEM. 2010; 96(7):1911-30. PATIENT WAS FASTINGP ERFORMED BY: CB [facility] Vthkco9234 [address] RoadDublin [place] [id number] HEPATIC FUNCTION PANEL (8007 6)Ordered By: Peer Tutor on 12-16-2016 Albumin mass conc 4.3 g/dL Normal 3.5-4.8 [facility] Internal Medicine Work Phone: Comment on above: PATIENT WAS FASTINGP ERFORMED BY: CB [facility] Rllxtn8844 [address] RoadDublin [place] [id number] ALP enzyme act/vol 72 [iU]/L Normal 39-117 [facility] Internal Medicine Work Phone: Comment on above: PATIENT WAS FASTINGP ERFORMED BY: CB [facility] Aqsles3479 [address] RoadDublin [place] [id number] ALT enzyme act/vol 15 [iU]/L Normal 0-32 [facility] Internal Medicine Work Phone: Comment on above: PATIENT WAS FASTINGP ERFORMED BY: CB [facility] Zpcaaz2464 [address] RoadDublin [place] [id number] AST enzyme act/vol 18 [iU]/L Normal 0-40 [facility] Internal Medicine Work Phone: Comment on above: PATIENT WAS FASTINGP ERFORMED BY: CB [facility] Ifnxzy6313 [address] RoadDublin [place] [id number] Bilirubin mass conc 0.5 mg/dL Normal 0.0-1.2 Compr ehensive Internal Medicine Work Phone: Comment on above: PATIENT WAS FASTINGP ERFORMED BY: ORTIZ [facility] Icgjwj0780 [address] [facility] [id number] Bilirubin.direct mass conc 0.16 mg/dL Normal 0.00-0.40 [facility] Work Phone: Comment on above: PATIENT WAS FASTINGP ERFORMED BY: CB [facility] Xmybpb5702 [facility] [id number] Protein mass conc 6.7 g/dL Normal 6.0-8.5 Compreh [facility]inter[facility] Internal Medicine Work Phone: Comment on above: PATIENT WAS FASTINGP ERFORMED BY: CB [facility] Iirhuf7808 [facility] [id number] LIPID PANEL (44099)Ordered B y: Peer Tutor on 12-16-2016 Cholesterol in HDL mass conc 56 mg/dL Normal [facility] Work Phone: Comment on above: PATIENT WAS FASTINGP ERFORMED BY: CB [facility] Sytajt9056 [facility] [id number] Information: [id number], [id number] Cholesterol in LDL mass conc 44 mg/dL Normal 0-99 [facility] Work Phone: Comment on above: PATIENT WAS FASTINGP ERFORMED BY: [facility] Ejhmwo0294 [facility] [id number] Information: [id number], [id number] Cholesterol in LDL/Cholesterol in HDL mass ratio 0.8 {ratio_units} Normal 0.0-3.2 [facility] Work Phone: Comment on above: LDL/HDL Ratio Men Wo men 1/2 Avg.Risk 1.0 1.5 Avg.Risk 3.6 3.2 2X Avg.Risk 6.2 5.0 3X Avg.Risk 8.0 6.1 PATIENT WAS FASTINGP ERFORMED BY: CB [facility] Kfmfes0783 [facility] [id number] Information: [id number], [id number] Cholesterol in VLDL mass conc 27 mg/dL Normal 5-40 [facility] Work Phone: Comment on above: PATIENT WAS FASTINGP ERFORMED BY: ORTIZ [facility] Vpwsao5467 [facility] [id number] Information: [id number], [id number] Cholesterol mass conc 127 mg/dL Normal 100-199 Com prehensive Internal Medicine Work Phone: Comment on above: PATIENT WAS FASTINGP ERFORMED BY: CB [facility] Ovuvhm5716 [facility] [id number] Information: [id number], [id number] Triglyceride mass conc 135 mg/dL Normal 0-149 Co mprehensive [facility] Work Phone: Comment on above: PATIENT WAS FASTINGP ERFORMED BY: ORTIZ [facility] Lghkvl3018 [facility] [id number] Information: [id number], [id number] Clinical Lists Update: Prelo laborer general 10-31-2016 Left ventricular Ejection fraction 70 % Invalid Interpretation Code [facility] Work Phone: Lipid Panel (77923)Ordered B y: Peer Tutor on 09-16-2016 Cholesterol in HDL mass conc 44 mg/dL Normal [facility] Work Phone: Comment on above: PATIENT WAS FASTINGP ERFORMED BY: ORTIZ [facility] Xlrwkc9000 [facility] [id number] Cholesterol in LDL mass conc 161 mg/dL Abnormal 0-99 [facility] Work Phone: Comment on above: PATIENT WAS FASTINGP ERFORMED BY: CB [facility] Kgkubq7837 [facility] [id number] Cholesterol in LDL/Cholesterol in HDL mass ratio 3.7 {ratio_units} Abnormal 0.0-3.2 [facility] Work Phone: Comment on above: LDL/HDL Ratio Men Wo men 1/2 Avg.Risk 1.0 1.5 Avg.Risk 3.6 3.2 2X Avg.Risk 6.2 5.0 3X Avg.Risk 8.0 6.1 PATIENT WAS FASTINGP ERFORMED BY: CB [facility] Aderbn1474 [address] RoadDublin [place] [id number] Cholesterol in VLDL mass conc 28 mg/dL Normal 5-40 [facility] Work Phone: Comment on above: PATIENT WAS FASTINGP ERFORMED BY: CB [facility] Uowwwb4075 [address] RoadDublin [place] [id number] Cholesterol mass conc 233 mg/dL Abnormal 100-199 Com prehensive Internal Medicine Work Phone: Comment on above: PATIENT WAS FASTINGP ERFORMED BY: CB [facility] Lomkpr7273 [address] RoadDublin [place] [id number] Triglyceride mass conc 139 mg/dL Normal 0-149 [facility] Work Phone: Comment on above: PATIENT WAS FASTINGP ERFORMED BY: CB [facility] Qvmjjt3531 [address] RoadDublin [place] [id number] VITAMIN B-12 (CYANOCOBALAMIN ) (62579)Ordered By: Peer Tutor on 09-16-2016 Cobalamin (Vitamin B12) mass conc 788 pg/mL Normal 211-946 [facility] Work Phone: Comment on above: PATIENT WAS FASTINGP ERFORMED BY: CB [facility] Plplbh6838 [address] RoadDublin [place] [id number] CALCIFIDIOL (08103) VIT D 25 Ordered By: Peer Tutor on 07-01-2016 25-Hydroxyvitamin D2+25-Hydroxyvitamin D3 mass conc 34.8 ng/mL Normal 30.0-100.0 [facility] Work Phone: Comment on above: Vitamin D deficiency has been defined by the [place] ofMedicine and an Endocrine Society practice guideline as alevel of serum 25-OH vitamin D less than 20 ng/mL (1,2).The Endocrine Society went on to further define vitamin Dinsufficiency as a level between 21 and 29 ng/mL (2).1. IOM ([place] of Medicine). 2010. Dietary reference intakes for calcium and D. [place]: The National Academies Press.2. Allie MF, Emile PONCE, Natalie POOLE, et al. Evaluation, treatment, and prevention of vitamin D deficiency: an Endocrine Society clinical practice guideline. JCEM. 2010; 96(7):1911-30. PATIENT WAS FASTINGP ERFORMED BY: ORTIZ [facility] Iihujv0269 [address] RoadDublin [place] [id number] CBC W/AUTO DIFF WBC (54136)O rdered By: Peer Tutor on 07-01-2016 Basophils #/vol (Bld) 0.0 {x10E3/uL} Normal 0.0-0.2 [facility] Work Phone: Comment on above: PATIENT WAS FASTINGP ERFORMED BY: ORTIZ [facility] Akukvc5809 [address] RoadDublin [place] [id number] Basophils/100 WBC (Bld) 0 % Normal [facility] Work Phone: Comment on above: PATIENT WAS FASTINGP ERFORMED BY: ORTIZ [facility] Esnvjy0479 [address] RoadDublin [place] [id number] Eosinophils #/vol (Bld) 0.1 {x10E3/uL} Normal 0.0-0.4 [facility] Work Phone: Comment on above: PATIENT WAS FASTINGP ERFORMED BY: ORTIZ [facility] Eqqxjx3561 [address] RoadDublin [place] [id number] Eosinophils/100 WBC (Bld) 2 % Normal [facility] Work Phone: Comment on above: PATIENT WAS FASTINGP ERFORMED BY: ORTIZ [facility] Wveino6244 [address] RoadDublin [place] [id number] Erythrocyte distribution width Ratio (RBC) 14.0 % Normal 12.3-15.4 [facility] Work Phone: Comment on above: PATIENT WAS FASTINGP ERFORMED BY: CB [facility] Jubkpd2413 [address] RoadDublin [place] [id number] Hematocrit Volume Fraction (Bld) 42.4 % Normal 34.0-46.6 [facility] Work Phone: Comment on above: PATIENT WAS FASTINGP ERFORMED BY: CB [facility] Pswsbi8741 [address] RoadDublin [place] [id number] Hemoglobin mass conc (Bld) 14.1 g/dL Normal 11.1-15.9 [facility] Work Phone: Comment on above: PATIENT WAS FASTINGP ERFORMED BY: LabH[facility]6370 [address] [facility]in [place] [id number] Immature granulocytes #/vol (Bld) 0.0 {x10E3/uL} Normal 0.0-0.1 [facility] Work Phone: Comment on above: PATIENT WAS FASTINGP ERFORMED BY: LabSaint John'S Health SystemPcmibb1655 [address] [facility] [id number] Immature granulocytes/100 WBC (Bld) 0 % Normal [facility] Work Phone: Comment on above: PATIENT WAS FASTINGP ERFORMED BY: LabH[facility]6370 [address] [facility] [id number] Lymphocytes #/vol (Bld) 1.8 {x10E3/uL} Normal 0.7-3.1 [facility] Work Phone: Comment on above: PATIENT WAS FASTINGP ERFORMED BY: LabSaint John'S Health SystemQnwrgp6451 [facility] [id number] Lymphocytes/100 WBC (Bld) 31 % Normal [facility] Work Phone: Comment on above: PATIENT WAS FASTINGP ERFORMED BY: LabH[facility]zel [facility] Hospital6370 [facility] [id number] MCH Entitic mass (RBC) 29.7 pg Normal 26.6-33.0 [facility] Internal Medicine Work Phone: Comment on above: PATIENT WAS FASTINGP ERFORMED BY: LabSt[facility] Rjisdh2548 [facility] [id number] MCHC mass conc (RBC) 33.3 g/dL Normal 31.5-35.7 [facility] Internal Medicine Work Phone: Comment on above: PATIENT WAS FASTINGP ERFORMED BY: LabSt[facility] Nbtopd4218 [facility] [id number] MCV Entitic volume (RBC) 89 fL Normal 79-97 [facility] Work Phone: Comment on above: PATIENT WAS FASTINGP ERFORMED BY: ORTIZ [facility]enaSt. [facility] Ndgzju0010 [address] [facility] [id number] Monocytes #/vol (Bld) 0.4 {x10E3/uL} Normal 0.1-0.9 [facility] Work Phone: Comment on above: PATIENT WAS FASTINGP ERFORMED BY: ORTIZ [facility] Fnelbf4007 [facility] [id number] Monocytes/100 WBC (Bld) 6 % Normal [facility] Work Phone: Comment on above: PATIENT WAS FASTINGP ERFORMED BY: ORTIZ LabSt[facility] Tfuuym4532 [address] [facility] [id number] Neutrophils #/vol (Bld) 3.7 {x10E3/uL} Normal 1.4-7.0 [facility] Work Phone: Comment on above: PATIENT WAS FASTINGP ERFORMED BY: ORTIZ [facility] Pgoepf8299 [facility] [id number] Neutrophils/100 WBC (Bld) 61 % Normal [facility] Work Phone: Comment on above: PATIENT WAS FASTINGP ERFORMED BY: ORTIZ [facility]enaSt[facility] Iyiotl2652 [facility] [id number] Platelets #/vol (Bld) 221 {x10E3/uL} Normal 150-379 [facility] Work Phone: Comment on above: PATIENT WAS FASTINGP ERFORMED BY: LabSt[facility] Wtvhip1551 [facility] [id number] RBC #/vol (Bld) 4.75 {x10E6/uL} Normal 3.77-5.28 [facility] Internal Medicine Work Phone: Comment on above: PATIENT WAS FASTINGP ERFORMED BY: LabH[facility]zel [facility] Hospital6370 [facility] [id number] WBC #/vol (Bld) 6.0 {x10E3/uL} Normal 3.4-10.8 [facility] Internal Medicine Work Phone: Comment on above: PATIENT WAS FASTINGP ERFORMED BY: ORTIZ Ameyaaustyn Xfapbr7209 [facility] [id number] LIPID PANEL (40781)Ordered B y: Peer Tutor on 07-01-2016 Cholesterol in HDL mass conc 41 mg/dL Normal [facility] Work Phone: Comment on above: According to ATP-III Guidelines, HDL-C >59 mg/dL is considered anegative risk factor for CHD. PATIENT WAS FASTINGP ERFORMED BY: ORTIZ Crowelin6370 [facility] [id number] Cholesterol in LDL mass conc 129 mg/dL Abnormal 0-99 [facility] Work Phone: Comment on above: PATIENT WAS FASTINGP ERFORMED BY: ORTIZ MeenaAleksandr CroweRmzhcc3205 [facility] [id number] Cholesterol in LDL/Cholesterol in HDL mass ratio 3.1 {ratio_units} Normal 0.0-3.2 [facility] Work Phone: Comment on above: LDL/HDL Ratio Men Wo men 1/2 Avg.Risk 1.0 1.5 Avg.Risk 3.6 3.2 2X Avg.Risk 6.2 5.0 3X Avg.Risk 8.0 6.1 PATIENT WAS FASTINGP ERFORMED BY: ORTIZ MeenaAleksandr Dvwpmu5352 [facility] [id number] Cholesterol in VLDL mass conc 45 mg/dL Abnormal 5-40 [facility] Work Phone: Comment on above: PATIENT WAS FASTINGP ERFORMED BY: ORTIZ Crowelin6370 [facility] [id number] Cholesterol mass conc 215 mg/dL Abnormal 100-199 Com prehensive Internal Medicine Work Phone: Comment on above: PATIENT WAS FASTINGP ERFORMED BY: ORTIZ LabCoaustyn Fdgvnf0663 [facility] [id number] Triglyceride mass conc 223 mg/dL Abnormal 0-149 Co mprehensive Internal Medicine Work Phone: Comment on above: PATIENT WAS FASTINGP ERFORMED BY: ORTIZ LabAleksandr CrowePsbkea7072 [facility] [id number] METABOLIC PANEL, COMPREHENSI VE (03031)Ordered By: Peer Tutor on 07-01-2016 Albumin mass conc 4.1 g/dL Normal 3.5-4.8 Compreh ensive Internal Medicine Work Phone: Comment on above: PATIENT WAS FASTINGP ERFORMED BY: ORTIZ LabAleksandr CroweNjahav1014 [address] RoadDublin [place] [id number] Albumin/Globulin mass ratio 1.6 {ratio} Normal 1.1-2.5 [facility] Work Phone: Comment on above: PATIENT WAS FASTINGP ERFORMED BY: ORTIZ [facility] Gftvki0476 [address] RoadDublin [place] [id number] ALP enzyme act/vol 98 [iU]/L Normal 39-117 Compre [facility] Internal Medicine Work Phone: Comment on above: PATIENT WAS FASTINGP ERFORMED BY: ORTIZ LabAleksandr CroweOabals5482 [address] RoadDublin [place] [id number] ALT enzyme act/vol 11 [iU]/L Normal 0-32 Compre [facility] Internal Medicine Work Phone: Comment on above: PATIENT WAS FASTINGP ERFORMED BY: ORTIZ LabAleksandr CroweHemkgz7794 [address] RoadDublin [place] [id number] AST enzyme act/vol 17 [iU]/L Normal 0-40 Compre [facility] Internal Medicine Work Phone: Comment on above: PATIENT WAS FASTINGP ERFORMED BY: ORTIZ [facility] Tduhlv4785 [address] RoadDublin [place] [id number] Bilirubin mass conc 0.2 mg/dL Normal 0.0-1.2 Compr [email or web address] Internal Medicine Work Phone: Comment on above: PATIENT WAS FASTINGP ERFORMED BY: ORTIZ [facility] Fllsuq3723 [address] RoadDublin [place] [id number] Calcium mass conc 9.8 mg/dL Normal 8.7-10.3 Compreh [facility] Internal [facility] Work Phone: Comment on above: PATIENT WAS FASTINGP ERFORMED BY: ORTIZ [facility] Ejdcfj8246 [address] RoadDublin [place] [id number] Chloride molar conc 101 mmol/L Normal 97-106 Compr ehensive Internal Medicine Work Phone: Comment on above: Please note refere nce interval change PATIENT WAS FASTINGP ERFORMED BY: ORTIZ LabCoaustyn CroweYwelxb2668 [address] [facility] [id number] CO2 molar conc 27 mmol/L Normal 18-29 Comprehens trupti Internal Medicine Work Phone: Comment on above: PATIENT WAS FASTINGP ERFORMED BY: ORTIZ [facility] Ceflyu4996 [facility] [id number] Creatinine mass conc 0.89 mg/dL Normal 0.57-1.00 Comp rehensive Internal Medicine Work Phone: Comment on above: PATIENT WAS FASTINGP ERFORMED BY: ORTIZ [facility] Nxgqmi9688 [facility] [id number] GFR/1.73 sq M predicted among blacks CKD-EPI vol rate/area (S/P/Bld) 72 mL/min/1.73 Normal [facility] Work Phone: Comment on above: PATIENT WAS FASTINGP ERFORMED BY: ORTIZ [facility] Xtzmpk1426 [facility] [id number] GFR/1.73 sq M predicted among non-blacks CKD-EPI vol rate/area (S/P/Bld) 63 mL/min/1.73 Normal Comprehensiv e Internal Medicine Work Phone: Comment on above: PATIENT WAS FASTINGP ERFORMED BY: ORTIZ [facility] Ilnzzj5602 [facility] [id number] Globulin mass conc (S) 2.5 g/dL Normal 1.5-4.5 Co mprehensive Internal Medicine Work Phone: Comment on above: PATIENT WAS FASTINGP ERFORMED BY: ORTIZ [facility] Hhsvpi8559 [facility] [id number] Glucose mass conc 92 mg/dL Normal 65-99 Compreh ensive Internal Medicine Work Phone: Comment on above: PATIENT WAS FASTINGP ERFORMED BY: ORTIZ [facility] Wssrpa6383 [facility] [id number] Potassium molar conc 5.0 mmol/L Normal 3.5-5.2 Comp rehensive Internal Medicine Work Phone: Comment on above: Please note refere nce interval change PATIENT WAS FASTINGP ERFORMED BY: ORTIZ [employer] Bvetbg5118 [facility] [id number] Protein mass conc 6.6 g/dL Normal 6.0-8.5 Compreh ensive Internal Medicine Work Phone: Comment on above: PATIENT WAS FASTINGP ERFORMED BY: ORTIZ [facility] Jpgiwj9300 [address] [facility] [place] [id number] Sodium molar conc 143 mmol/L Normal 136-144 Compreh ensive Internal Medicine Work Phone: Comment on above: Please note refere nce interval change PATIENT WAS FASTINGP ERFORMED BY: ORTIZ Crowelin6370 [facility] [id number] Urea nitrogen mass conc 9 mg/dL Normal 8-27 [facility] Work Phone: Comment on above: PATIENT WAS FASTINGP ERFORMED BY: ORTIZ Crowelin6370 [facility] [id number] Urea nitrogen/Creatinine mass ratio 10 mg/mg Abnormal 11- [facility] Work Phone: Comment on above: PATIENT WAS FASTINGP ERFORMED BY: ORTIZ Crowelin6370 [facility] [id number] MICROALBUMINOrdered By: Syst em Inspector And Clipper on 07-01-2016 Albumin DL <= 20 mg/L mass conc (U) 5.9 ug/mL Normal [facility] Work Phone: Comment on above: PATIENT WAS FASTINGP ERFORMED BY: ORTIZ [facility] Llwuko7453 [facility] [id number] Albumin/Creatinine mass ratio (U) 4.3 {mg/g_creat} Normal 0.0-30.0 [facility] Work Phone: Comment on above: PATIENT WAS FASTINGP ERFORMED BY: ORTIZ LabKellie Yifqcq4384 Rodriguez RoadDublin [place] [id number] Creatinine mass conc (U) 138.1 mg/dL Normal [facility] Work Phone: Comment on above: PATIENT WAS FASTINGP ERFORMED BY: ORTIZ Ameya Cnrnkl4698 [address] RoadDublin [place] [id number] TSH ([id number])Ordered By: Syste m Inspector And Clipper on 07-01-2016 Thyrotropin Qn 3.470 {uIU/mL} Normal 0.450-4.50 0 [facility] Work Phone: Comment on above: PATIENT WAS FASTINGP ERFORMED BY: ORTIZ [facility] Hjusvh0722 [address] Roadbl[address] [place] [id number] URINALYSIS, W/ MICRO ([id number]) Ordered By: Peer Tutor on 07-01-2016 Appearance Nom (U) Clear Normal Compre hensive Internal Medicine Work Phone: Comment on above: PATIENT WAS FASTINGP ERFORMED BY: ORTIZ [facility] Dhqvfo6536 [address] Roadblin [place] [id number] Bilirubin Ql (U) Negative Normal Comprehe nsive Internal Medicine Work Phone: Comment on above: PATIENT WAS FASTINGP ERFORMED BY: ORTIZ LabKellie Nytbfl5790 [address] Roadblin [place] [id number] Color Nom (U) Yellow Normal Comprehensi ve Internal Medicine Work Phone: Comment on above: PATIENT WAS FASTINGP ERFORMED BY: ORTIZ [facility] Xrsiqf7437 [address] RoadDublin [place] [id number] Glucose Ql (U) Negative Normal Comprehens trupti Internal Medicine Work Phone: Comment on above: PATIENT WAS FASTINGP ERFORMED BY: ORTIZ [facility] Paqqnt2991 [address] RoadDublin [place] [id number] Hemoglobin Ql (U) Negative Normal Compreh ensive Internal Medicine Work Phone: Comment on above: PATIENT WAS FASTINGP ERFORMED BY: ORTIZ [facility] Omqgzv9095 [address] RoadDublin [place] [id number] Ketones Ql (U) Negative Normal Comprehens trupti Internal Medicine Work Phone: Comment on above: PATIENT WAS FASTINGP ERFORMED BY: ORTIZ LabCoaustyn Nwhkoh6735 [address] RoadDublin [place] [id number] Leukocyte esterase Test strip Ql (U) Negative Normal [facility] Work Phone: Comment on above: PATIENT WAS FASTINGP ERFORMED BY: ORTIZ LabAleksandr CrowePepeat0429 [address] RoadDublin [place] [id number] Microscopic observation LM Nom (Urine sed) MICRON Normal Comprehensive [facility] Work Phone: Comment on above: Microscopic follows if indicated. PATIENT WAS FASTINGP ERFORMED BY: ORTIZ LabAleksandr CroweEdhjuq7294 [address] RoadDublin [place] [id number] Microscopic observation LM Nom (Urine sed) See below: Normal [facility] Work Phone: Comment on above: Microscopic was derrick cated and was performed. PATIENT WAS FASTINGP ERFORMED BY: ORTIZ LabCoaustyn CroweWeyuhn1174 [address] RoadDublin [place] [id number] Nitrite Ql (U) Negative Normal Comprehens trupti Internal Medicine Work Phone: Comment on above: PATIENT WAS FASTINGP ERFORMED BY: ORTIZ LabAleksandr CroweGenfdg7837 [address] [facility] LivoniaD[place] [id number] pH (U) 5.5 [pH] Normal 5.0-7.5 [facility] Work Phone: Comment on above: PATIENT WAS FASTINGP ERFORMED BY: ORTIZ LabCoaustyn CroweFkaupq5335 [address] RoadDublin [place] [id number] Protein Ql (U) Negative Normal Comprehens trupti Internal Medicine Work Phone: Comment on above: PATIENT WAS FASTINGP ERFORMED BY: ORTIZ LabCoaustyn Vdtile5955 [address] RoadDublin [place] [id number] Specific gravity Relative Density (U) 1.016 1 Normal 1.005-1.03 0 [facility] Work Phone: Comment on above: PATIENT WAS FASTINGP ERFORMED BY: ORTIZ [facility] Jvsvmc0950 Rodriguez RoadDublin [place] [id number] Urobilinogen Test strip mass conc (U) 0.2 mg/dL Normal 0.2-1.0 Comprehensiv e Internal Medicine Work Phone: Comment on above: PATIENT WAS FASTINGP ERFORMED BY: ORTIZ [employer] Ujewmy6600 [facility] [id number] VITAMIN B-12 (CYANOCOBALAMIN ) ([id number])Ordered By: Peer Tutor on 07-01-2016 Cobalamin (Vitamin B12) mass conc 861 pg/mL Normal 211-946 [facility] Work Phone: Comment on above: PATIENT WAS FASTINGP ERFORMED BY: [employer] Kfkhnf6383 [facility] [id number] CALCIFIDIOL (29599) VIT D 25 Ordered By: Peer Tutor on 12-05-2015 25-Hydroxyvitamin D2+25-Hydroxyvitamin D3 mass conc 40.5 ng/mL Normal 30.0-100.0 [facility] Work Phone: Comment on above: Vitamin D deficiency has been defined by the [place] ofMedicine and an Endocrine Society practice guideline as alevel of serum 25-OH vitamin D less than 20 ng/mL (1,2).The Endocrine Society went on to further define vitamin Dinsufficiency as a level between 21 and 29 ng/mL (2).1. IOM ([place] of Medicine). 2010. Dietary reference intakes for calcium and D. [place]: The National Academies Press.2. Allie MF, Emile NC, Natalie POOLE, et al. Evaluation, treatment, and prevention of vitamin D deficiency: an Endocrine Society clinical practice guideline. JCEM. 2010; 96(7):1911-30. PATIENT WAS FASTINGP ERFORMED BY: [employer] Oyiwvb0081 [facility] [id number] CBC W/AUTO DIFF WBC ([id number])O rdered By: Peer Tutor on 12-05-2015 Basophils #/vol (Bld) 0.0 {x10E3/uL} Normal 0.0-0.2 [facility] Work Phone: Comment on above: PATIENT WAS FASTINGP ERFORMED BY: [employer] TechnologiesSaint Francis Medical CenterUnkhkf8422 [facility] [id number] Information: [id number] Basophils/100 WBC (Bld) 1 % Normal [facility] Work Phone: Comment on above: PATIENT WAS FASTINGP ERFORMED BY: [place] 5826070 [facility] [id number] Information: [id number] Eosinophils #/vol (Bld) 0.2 {x10E3/uL} Normal 0.0-0.4 [facility] Work Phone: Comment on above: PATIENT WAS FASTINGP ERFORMED BY: [address] [id number] Information: [id number] Eosinophils/100 WBC (Bld) 4 % Normal [facility] Work Phone: Comment on above: PATIENT WAS FASTINGP ERFORMED BY: [address] [id number] Information: [id number] Erythrocyte distribution width Ratio (RBC) 13.7 % Normal 12.3-15.4 [facility] Work Phone: Comment on above: PATIENT WAS FASTINGP ERFORMED BY: [address] [id number] Information: [id number] Hematocrit Volume Fraction (Bld) 40.2 % Normal 34.0-46.6 [facility] Work Phone: Comment on above: PATIENT WAS FASTINGP ERFORMED BY: [place] 5826070 [facility] [id number] Information: [id number] Hemoglobin mass conc (Bld) 13.6 g/dL Normal 11.1-15.9 [facility] Work Phone: Comment on above: PATIENT WAS FASTINGP ERFORMED BY: [place] 5826070 [facility] [id number] Information: [id number] Immature granulocytes #/vol (Bld) 0.0 {x10E3/uL} Normal 0.0-0.1 [facility] Work Phone: Comment on above: PATIENT WAS FASTINGP ERFORMED BY: [place] 5826070 [facility] [id number] Information: [id number] Immature granulocytes/100 WBC (Bld) 0 % Normal [facility] Work Phone: Comment on above: PATIENT WAS FASTINGP ERFORMED BY: [address] [id number] Information: [id number] Lymphocytes #/vol (Bld) 1.2 {x10E3/uL} Normal 0.7-3.1 [facility] Work Phone: Comment on above: PATIENT WAS FASTINGP ERFORMED BY: [address] [id number] Information: [id number] Lymphocytes/100 WBC (Bld) 26 % Normal [facility] Work Phone: Comment on above: PATIENT WAS FASTINGP ERFORMED BY: [address] [id number] Information: [id number] MCH Entitic mass (RBC) 30.0 pg Normal 26.6-33.0 [facility] Internal Medicine Work Phone: Comment on above: PATIENT WAS FASTINGP ERFORMED BY: [address] [id number] Information: [id number] MCHC mass conc (RBC) 33.8 g/dL Normal 31.5-35.7 [facility] Internal Medicine Work Phone: Comment on above: PATIENT WAS FASTINGP ERFORMED BY: [address] [id number] Information: [id number] MCV Entitic volume (RBC) 89 fL Normal 79-97 [facility] Work Phone: Comment on above: PATIENT WAS FASTINGP ERFORMED BY: [facility]6370 [facility] [id number] Information: [id number] Monocytes #/vol (Bld) 0.5 {x10E3/uL} Normal 0.1-0.9 [facility] Work Phone: Comment on above: PATIENT WAS FASTINGP ERFORMED BY: [address] [id number] Information: [id number] Monocytes/100 WBC (Bld) 10 % Normal [facility] Work Phone: Comment on above: PATIENT WAS FASTINGP ERFORMED BY: [address] [id number] Information: [id number] Neutrophils #/vol (Bld) 2.7 {x10E3/uL} Normal 1.4-7.0 [facility] Work Phone: Comment on above: PATIENT WAS FASTINGP ERFORMED BY: [place] 5826070 [facility] [id number] Information: [id number] Neutrophils/100 WBC (Bld) 59 % Normal [facility] Work Phone: Comment on above: PATIENT WAS FASTINGP ERFORMED BY: [address] [id number] Information: [id number] Platelets #/vol (Bld) 206 {x10E3/uL} Normal 150-379 [facility] Work Phone: Comment on above: PATIENT WAS FASTINGP ERFORMED BY: [facility]6370 [facility] [id number] Information: [id number] RBC #/vol (Bld) 4.54 {x10E6/uL} Normal 3.77-5.28 Comp [facility] Internal Medicine Work Phone: Comment on above: PATIENT WAS FASTINGP ERFORMED BY: ORTIZ Nilda Chester6370 [facility] [id number] Information: [id number] WBC #/vol (Bld) 4.5 {x10E3/uL} Normal 3.4-10.8 [facility] Centerensive Internal [facility] Work Phone: Comment on above: PATIENT WAS FASTINGP ERFORMED BY: ORTIZ Nilda Chester6370 [facility] [id number] Information: [id number] LIPID PANEL ([id number])Ordered B y: Peer Tutor on 12-05-2015 Cholesterol in HDL mass conc 46 mg/dL Normal Comprehensive [facility] Work Phone: Comment on above: According to ATP-III Guidelines, HDL-C >59 mg/dL is considered anegative risk factor for CHD. PATIENT WAS FASTINGP ERFORMED BY: ORTIZ Ameyaaustyn Fzybxk0501 [facility] [id number] Cholesterol in LDL mass conc 126 mg/dL Abnormal 0-99 [facility] Work Phone: Comment on above: PATIENT WAS FASTINGP ERFORMED BY: ORTIZ Ameyaaustyn Juztjp1585 [facility] [id number] Cholesterol in LDL/Cholesterol in HDL mass ratio 2.7 {ratio_units} Normal 0.0-3.2 [facility] Work Phone: Comment on above: LDL/HDL Ratio Men Wo men 1/2 Avg.Risk 1.0 1.5 Avg.Risk 3.6 3.2 2X Avg.Risk 6.2 5.0 3X Avg.Risk 8.0 6.1 PATIENT WAS FASTINGP ERFORMED BY: ORTIZ [facility] Cbhvad3457 [facility] [id number] Cholesterol in VLDL mass conc 31 mg/dL Normal 5-40 [facility] Medicine Work Phone: Comment on above: PATIENT WAS FASTINGP ERFORMED BY: ORTIZ [facility] Awwmqf2337 [facility] [id number] Cholesterol mass conc 203 mg/dL Abnormal 100-199 [facility] Work Phone: Comment on above: PATIENT WAS FASTINGP ERFORMED BY: ORTIZ [facility] Xqpoem4784 [address] RoadDublin [place] [id number] Triglyceride mass conc 156 mg/dL Abnormal 0-149 Co [facility] Work Phone: Comment on above: PATIENT WAS FASTINGP ERFORMED BY: CB [facility] Wgqpel0889 [address] [facility] [place] [id number] METABOLIC PANEL, COMPREHENSI VE ([id number])Ordered By: Peer Tutor on 12-05-2015 Albumin mass conc 4.2 g/dL Normal 3.5-4.8 Compreh [facility] Internal Medicine Work Phone: Comment on above: PATIENT WAS FASTINGP ERFORMED BY: ORTIZ [facility] Fucujd4610 [address] [facility] [id number] Albumin/Globulin mass ratio 1.8 {ratio} Normal 1.1-2.5 [facility] Internal Medicine Work Phone: Comment on above: PATIENT WAS FASTINGP ERFORMED BY: [facility] Vokohq1827 [facility] [place] [id number] ALP enzyme act/vol 71 [iU]/L Normal 39-117 [facility] Internal Medicine Work Phone: Comment on above: PATIENT WAS FASTINGP ERFORMED BY: ORTIZ [facility] Ororgp8580 [address] [facility] [id number] ALT enzyme act/vol 10 [iU]/L Normal 0-32 [facility] Internal Medicine Work Phone: Comment on above: PATIENT WAS FASTINGP ERFORMED BY: CB [facility] Mkwfpm1969 [facility] [place] [id number] AST enzyme act/vol 17 [iU]/L Normal 0-40 [facility] Internal Medicine Work Phone: Comment on above: PATIENT WAS FASTINGP ERFORMED BY: CB [facility] Oaeuns4560 [address] [facility] [place] [id number] Bilirubin mass conc 0.4 mg/dL Normal 0.0-1.2 [facility] Internal Medicine Work Phone: Comment on above: PATIENT WAS FASTINGP ERFORMED BY: ORTIZ [facility] Filsmp1658 [address] RoadDublin [place] [id number] Calcium mass conc 9.5 mg/dL Normal 8.7-10.3 Compreh ensive Internal Medicine Work Phone: Comment on above: PATIENT WAS FASTINGP ERFORMED BY: ORTIZ [facility] Rebbvj9595 [address] RoadDublin [place] [id number] Chloride molar conc 106 mmol/L Normal 97-108 Compr ehensive Internal Medicine Work Phone: Comment on above: PATIENT WAS FASTINGP ERFORMED BY: ORTIZ [facility] Clqbgq0449 [address] RoadDublin [place] [id number] CO2 molar conc 25 mmol/L Normal 18-29 Comprehens trupti Internal Medicine Work Phone: Comment on above: PATIENT WAS FASTINGP ERFORMED BY: ORTIZ [facility] Nyysuz6409 [address] RoadAsheville Specialty Hospitalin [place] [id number] Creatinine mass conc 0.92 mg/dL Normal 0.57-1.00 Comp [facility]ensive [facility] Work Phone: Comment on above: PATIENT WAS FASTINGP ERFORMED BY: ORTIZ [facility] Sqeosj2125 Rodriguez RoadAsheville Specialty Hospitalin [place] [id number] GFR/1.73 sq M predicted among blacks CKD-EPI vol rate/area (S/P/Bld) 70 mL/min/1.73 Normal [facility] Internal Medicine Work Phone: Comment on above: PATIENT WAS FASTINGP ERFORMED BY: ORTIZ [facility] Stnnlo7464 Rodriguez RoadAsheville Specialty Hospitalin [place] [id number] GFR/1.73 sq M predicted among non-blacks CKD-EPI vol rate/area (S/P/Bld) 61 mL/min/1.73 Normal Comprehensiv e Internal Medicine Work Phone: Comment on above: PATIENT WAS FASTINGP ERFORMED BY: ORTIZ [facility] Lgbkar2362 [address] Roadblin [place] [id number] Globulin mass conc (S) 2.3 g/dL Normal 1.5-4.5 [facility] Work Phone: Comment on above: PATIENT WAS FASTINGP ERFORMED BY: ORTIZ Crowelin6370 [address] [facility] [place] [id number] Glucose mass conc 84 mg/dL Normal 65-99 Compreh ensive Internal Medicine Work Phone: Comment on above: PATIENT WAS FASTINGP ERFORMED BY: ORTIZ Chester6370 [address] [facility] [place] [id number] Potassium molar conc 4.6 mmol/L Normal 3.5-5.2 Comp [facility] Work Phone: Comment on above: PATIENT WAS FASTINGP ERFORMED BY: ORTIZ Chester6370 [address] [facility] [place] [id number] Protein mass conc 6.5 g/dL Normal 6.0-8.5 Compreh ensive Internal Medicine Work Phone: Comment on above: PATIENT WAS FASTINGP ERFORMED BY: ORTIZ Chester6370 [address] [facility] [id number] Sodium molar conc 145 mmol/L Abnormal 134-144 Compreh ensive Internal Medicine Work Phone: Comment on above: PATIENT WAS FASTINGP ERFORMED BY: ORTIZ Chester6370 [facility] [id number] Urea nitrogen mass conc 16 mg/dL Normal 8-27 [facility] Work Phone: Comment on above: PATIENT WAS FASTINGP ERFORMED BY: ORTIZ Crowelin6370 [facility] [id number] Urea nitrogen/Creatinine mass ratio 17 mg/mg Normal 11-26 [facility] Work Phone: Comment on above: PATIENT WAS FASTINGP ERFORMED BY: ORTIZ Crowelin6370 [facility] [id number] MICROALBUMINOrdered By: Syst em Inspector And Clipper on 12-05-2015 Albumin DL <= 20 mg/L mass conc (U) 25.6 ug/mL Abnormal 0.0-17.0 [facility] Work Phone: Comment on above: PATIENT WAS FASTINGP ERFORMED BY: ORTIZ Crowelin6370 [address] RoadDublin [place] [id number] Albumin/Creatinine mass ratio (U) 9.3 {mg/g_creat} Normal 0.0-30.0 [facility] Work Phone: Comment on above: PATIENT WAS FASTINGP ERFORMED BY: ORTIZ [facility] Azfpck6730 [address] RoadDublin [place] [id number] Creatinine mass conc (U) 276.5 mg/dL Normal 15.0-278.0 [facility] Work Phone: Comment on above: PATIENT WAS FASTINGP ERFORMED BY: [facility] Piqxin2451 [address] RoadDublin [place] [id number] TSH ([id number])Ordered By: Syste m Inspector And Clipper on 12-05-2015 Thyrotropin Qn 1.330 {uIU/mL} Normal 0.450-4.50 0 [facility] Work Phone: Comment on above: PATIENT WAS FASTINGP ERFORMED BY: ORTIZ [facility] Suaydo2649 [address] Roadblin [place] [id number] URINALYSIS, W/ MICRO ([id number]) Ordered By: Peer Tutor on 12-05-2015 Appearance Nom (U) Clear Normal Compre hensive Internal Medicine Work Phone: Comment on above: PATIENT WAS FASTINGP ERFORMED BY: ORTIZ [facility] Ipjrla3308 [address] RoadDublin [place] [id number] Bilirubin Ql (U) Negative Normal Comprehe nsive Internal Medicine Work Phone: Comment on above: PATIENT WAS FASTINGP ERFORMED BY: [facility] Wsesep1794 [address] RoadDublin [place] [id number] Color Nom (U) Yellow Normal Comprehensi ve Internal Medicine Work Phone: Comment on above: PATIENT WAS FASTINGP ERFORMED BY: ORTIZ [facility] Tsxtmp6677 [address] RoadDublin [place] [id number] Glucose Ql (U) Negative Normal Comprehens trupti Internal Medicine Work Phone: Comment on above: PATIENT WAS FASTINGP ERFORMED BY: ORTIZ [facility] Kxzzzr9699 Rodriguez RoadAsheville Specialty Hospitalin [place] [id number] Hemoglobin Ql (U) Negative Normal Compreh ensive Internal Medicine Work Phone: Comment on above: PATIENT WAS FASTINGP ERFORMED BY: ORTIZ MeenaAleksandr CroweJbikfj9252 [facility] [id number] Ketones Ql (U) Negative Normal Comprehens trupti Internal Medicine Work Phone: Comment on above: PATIENT WAS FASTINGP ERFORMED BY: ORTIZ Crowelin6370 [facility] [id number] Leukocyte esterase Test strip Ql (U) Negative Normal [facility] Work Phone: Comment on above: PATIENT WAS FASTINGP ERFORMED BY: ORTIZ Crowelin6370 [facility] [id number] Microscopic observation LM Nom (Urine sed) See below: Normal [facility] Work Phone: Comment on above: Microscopic was derrick cated and was performed. PATIENT WAS FASTINGP ERFORMED BY: ORTIZ Munguia Vzusej8620 [facility] [id number] Nitrite Ql (U) Negative Normal Comprehens trupti Internal Medicine Work Phone: Comment on above: PATIENT WAS FASTINGP ERFORMED BY: ORTIZ Crowelin6370 [facility] [id number] pH (U) 5.5 [pH] Normal 5.0-7.5 [facility] Work Phone: Comment on above: PATIENT WAS FASTINGP ERFORMED BY: ORTIZ Crowelin6370 [facility] [id number] Protein Ql (U) 1+ Abnormal Comprehens trupti Internal Medicine Work Phone: Comment on above: PATIENT WAS FASTINGP ERFORMED BY: ORTIZ Crowelin6370 [facility] [id number] Specific gravity Relative Density (U) 1.029 1 Normal 1.005-1.03 0 [facility] Work Phone: Comment on above: PATIENT WAS FASTINGP ERFORMED BY: ORTIZ Munguia [address]DuHighlands-Cashiers Hospital [id number] Urobilinogen Test strip mass conc (U) 0.2 mg/dL Normal 0.2-1.0 Comprehensiv e Internal Medicine Work Phone: Comment on above: PATIENT WAS FASTINGP ERFORMED BY: ORTIZ [facility] Bcejam6174 [address] [employer])[facility]in [place] [id number] VITAMIN B-12 (CYANOCOBALAMIN ) ([id number])Ordered By: Peer Tutor on 12-05-2015 Cobalamin (Vitamin B12) mass conc 465 pg/mL Normal 211-946 [facility] Work Phone: Comment on above: PATIENT WAS FASTINGP ERFORMED BY: ORTIZ LabCoSproutkin Yioqix8816 [address] SyMyndin [place] [id number] Fecal Occult Blood , Office ([id number])Ordered By: Gabino Bullock on 11-08-2015 Hemoglobin.gastrointes tinal Ql (St) Negative Normal [facility] Work Phone: VITAMIN B-12 (CYANOCOBALAMIN ) ([id number])Ordered By: Peer Tutor on 08-27-2015 Cobalamin (Vitamin B12) mass conc 919 pg/mL Normal 211-946 [facility] Work Phone: Comment on above: PATIENT NOT FASTINGP ERFORMED BY: [facility] Aeimse0800 [address] SyMyndHighlands-Cashiers Hospital [id number] Information: [id number] Clinical Lists Update: Prelo laborer general 05-26-2015 Anion gap 6 mmol/L Invalid Interpretation Code [facility] Work Phone: basophils as percent of blood leukocytes, manual count 0.5 % Invalid Interpretation Code [facility] Work Phone: BUN/Creatinine Ratio 18.8 mg/mg Invalid Interpretation Code [facility] Work Phone: Calcium 8.9 mg/dL Invalid Interpretation Code [facility] Work Phone: Chloride 106 mmol/L Invalid Interpretation Code [facility] Work Phone: CO2 31.0 mmol/L Invalid Interpretation Code [facility] Work Phone: Creatinine 0.85 mg/dL Invalid Interpretation Code [facility] Work Phone: eosinophils as percent of blood leukocytes, manual count 5.4 % High [facility] Work Phone: Erythrocytes (RBC) 4.14 10*6/uL [facility] Work Phone: Glucose 102 mg/dL Invalid Interpretation Code [facility] Work Phone: Hematocrit (HCT) 38.6 % Invalid Interpretation Code [facility] Work Phone: Hemoglobin (HGB) 12.6 g/dL Invalid Interpretation Code [facility] Work Phone: Lymphocytes/100 leukocytes 27.3 % Invalid Interpretation Code [facility] Work Phone: MCH 30.4 pg Invalid Interpretation Code [facility] Work Phone: MCHC 32.6 g/dL Invalid Interpretation Code [facility] Work Phone: MCV 93.2 fL Invalid Interpretation Code [facility] Work Phone: Monocytes/100 leukocytes 10.2 % High [facility] Work Phone: neutrophils, band form as percent of blood leukocytes, manual count 56.4 % Invalid Interpretation Code [facility] Work Phone: Platelets 162 10*3/mm3 Invalid Interpretation Code [facility] Work Phone: PMV by Bernard 9.6 fL Invalid Interpretation Code [facility] Work Phone: Potassium 4.3 mmol/L Invalid Interpretation Code [facility] Work Phone: RDW-CA 12.9 % Invalid Interpretation Code [facility] Work Phone: Sodium 143 mmol/L Invalid Interpretation Code [facility] Work Phone: Urea nitrogen 16 mg/dL Invalid Interpretation Code [facility] Work Phone: WBC (Leukocytes) 6.3 10*3/uL Invalid Interpretation Code [facility] Work Phone: Clinical Lists Update: Preroberto smith 04-26-2015 Cholesterol 136 mg/dL Invalid Interpretation Code [facility] Work Phone: HDL Cholesterol 49 mg/dL Invalid Interpretation Code [facility] Work Phone: LDL Cholesterol 66 mg/dL Invalid Interpretation Code [facility] Work Phone: Triglyceride 105 mg/dL Invalid Interpretation Code [facility] Work Phone: very low density lipoproteins 21 mg/dL Invalid Interpretation Code [facility] Work Phone: CBC W/AUTO DIFF WBC ([id number])O rdered By: Peer Tutor on 10-19-2014 Basophils #/vol (Bld) 0.0 {x10E3/uL} Normal 0.0-0.2 [facility] Work Phone: Comment on above: PATIENT WAS FASTINGP ERFORMED BY: [facility]6370 [facility] [id number] Information: [id number] Basophils/100 WBC (Bld) 1 % Normal [facility] Work Phone: Comment on above: PATIENT WAS FASTINGP ERFORMED BY: [employer] Engineering TechnologiesSaint Francis Medical CenterPndsma[address] [place] [address] [id number] Information: [id number] Eosinophils #/vol (Bld) 0.2 {x10E3/uL} Normal 0.0-0.4 [facility] Work Phone: Comment on above: PATIENT WAS FASTINGP ERFORMED BY: Prax[employer] Engineering TechnologiesSaint Francis Medical CenterNtsetn5716 [facility] [id number] Information: [id number] Eosinophils/100 WBC (Bld) 5 % Normal [facility] Work Phone: Comment on above: PATIENT WAS FASTINGP ERFORMED BY: [place] 5826070 [facility] [id number] Information: [id number] Erythrocyte distribution width Ratio (RBC) 13.5 % Normal 12.3-15.4 [facility] Work Phone: Comment on above: PATIENT WAS FASTINGP ERFORMED BY: ORTIZ [facility] Nnpesg8815 [facility] [id number] Information: [id number] Hematocrit Volume Fraction (Bld) 39.1 % Normal 34.0-46.6 [facility] Work Phone: Comment on above: PATIENT WAS FASTINGP ERFORMED BY: [address] [id number] Information: [id number] Hemoglobin mass conc (Bld) 12.9 g/dL Normal 11.1-15.9 [facility] Work Phone: Comment on above: PATIENT WAS FASTINGP ERFORMED BY: [facility] Zirucx[address] [id number] Information: [id number] Immature granulocytes #/vol (Bld) 0.0 {x10E3/uL} Normal 0.0-0.1 [facility] Work Phone: Comment on above: PATIENT WAS FASTINGP ERFORMED BY: [address]ena[address] [id number] Information: [id number] Immature granulocytes/100 WBC (Bld) 0 % Normal [facility] Work Phone: Comment on above: PATIENT WAS FASTINGP ERFORMED BY: [address] [id number] Information: [id number] Lymphocytes #/vol (Bld) 1.2 {x10E3/uL} Normal 0.7-3.1 [facility] Work Phone: Comment on above: PATIENT WAS FASTINGP ERFORMED BY: [address]ena[address] [id number] Information: [id number] Lymphocytes/100 WBC (Bld) 25 % Normal [facility] Work Phone: Comment on above: PATIENT WAS FASTINGP ERFORMED BY: ORTIZ [facility]6370 [facility] [id number] Information: [id number] MCH Entitic mass (RBC) 29.8 pg Normal 26.6-33.0 Co [facility] Work Phone: Comment on above: PATIENT WAS FASTINGP ERFORMED BY: [address] [id number] Information: [id number] MCHC mass conc (RBC) 33.0 g/dL Normal 31.5-35.7 [facility] Work Phone: Comment on above: PATIENT WAS FASTINGP ERFORMED BY: ORTIZ [address] [id number] Information: [id number] MCV Entitic volume (RBC) 90 fL Normal 79-97 [facility] Work Phone: Comment on above: PATIENT WAS FASTINGP ERFORMED BY: ORTIZ [address] [id number] Information: [id number] Monocytes #/vol (Bld) 0.5 {x10E3/uL} Normal 0.1-0.9 [facility] Work Phone: Comment on above: PATIENT WAS FASTINGP ERFORMED BY: ORTIZ [place] 8417770 [facility] [id number] Information: [id number] Monocytes/100 WBC (Bld) 10 % Normal [facility] Work Phone: Comment on above: PATIENT WAS FASTINGP ERFORMED BY: [address] [id number] Information: [id number] Neutrophils #/vol (Bld) 2.9 {x10E3/uL} Normal 1.4-7.0 [facility] Work Phone: Comment on above: PATIENT WAS FASTINGP ERFORMED BY: [place] [address] [facility] [id number] Information: [id number] Neutrophils/100 WBC (Bld) 59 % Normal [facility] Work Phone: Comment on above: PATIENT WAS FASTINGP ERFORMED BY: [facility]6370 [facility] [id number] Information: [id number] Platelets #/vol (Bld) 196 {x10E3/uL} Normal 150-379 [facility] Work Phone: Comment on above: PATIENT WAS FASTINGP ERFORMED BY: [place] 5826070 [facility] [id number] Information: [id number] RBC #/vol (Bld) 4.33 {x10E6/uL} Normal 3.77-5.28 [facility] Work Phone: Comment on above: PATIENT WAS FASTINGP ERFORMED BY: [facility]6370 [facility] [id number] Information: [id number] WBC #/vol (Bld) 4.9 {x10E3/uL} Normal 3.4-10.8 [facility] Work Phone: Comment on above: PATIENT WAS FASTINGP ERFORMED BY: [place] 5826070 [facility] [id number] Information: [id number] LIPID PANEL (35041)Ordered B y: Peer Tutor on 10-19-2014 Cholesterol in HDL mass conc 47 mg/dL Normal [facility] Work Phone: Comment on above: According to ATP-III Guidelines, HDL-C >59 mg/dL is considered anegative risk factor for CHD. PATIENT WAS FASTINGP ERFORMED BY: [facility]6370 [facility] [id number] Cholesterol in LDL mass conc 148 mg/dL Abnormal 0-99 [facility] Work Phone: Comment on above: PATIENT WAS FASTINGP ERFORMED BY: ORTIZ LabCoaustyn CroweRjztas5637 Rodriguez Roadblin [place] [id number] Cholesterol in LDL/Cholesterol in HDL mass ratio 3.1 {ratio_units} Normal 0.0-3.2 [facility] Work Phone: Comment on above: LDL/HDL Ratio Men Wo men 1/2 Avg.Risk 1.0 1.5 Avg.Risk 3.6 3.2 2X Avg.Risk 6.2 5.0 3X Avg.Risk 8.0 6.1 PATIENT WAS FASTINGP ERFORMED BY: ORTIZ LabAleksandr CroweJcfshe0435 Rodriguez RoadDublin [place] [id number] Cholesterol in VLDL mass conc 36 mg/dL Normal 5-40 [facility] Work Phone: Comment on above: PATIENT WAS FASTINGP ERFORMED BY: ORTIZ LabAleksandr CroweImkedj[address] [employer]bl[place] [id number] Cholesterol mass conc 231 mg/dL Abnormal 100-199 Com prehensive [facility] Work Phone: Comment on above: PATIENT WAS FASTINGP ERFORMED BY: ORTIZ LabAleksandr CroweBubckj[address] [facility]in [place] [id number] Triglyceride mass conc 179 mg/dL Abnormal 0-[address] [facility]erehens[facility] Work Phone: Comment on above: PATIENT WAS FASTINGP ERFORMED BY: ORTIZ Munguia Urjktc[address] [facility]in [place] [id number] METABOLIC PANEL, COMPREHENSI VE ([id number])Ordered By: Peer Tutor on 10-19-2014 Albumin mass conc 4.3 g/dL Normal 3.5-4.8 Compreh ensive [facility] Medicine Work Phone: Comment on above: PATIENT WAS FASTINGP ERFORMED BY: ORTIZ [facility] Hmkgsg4295 [address] RoadDublin [place] [id number] Albumin/Globulin mass ratio 2.2 {ratio} Normal 1.1-2.5 [facility] Work Phone: Comment on above: PATIENT WAS FASTINGP ERFORMED BY: ORTIZ [facility] Ksjjfm[address]76 [address] [facility] Centerblin [place] [id number] ALP enzyme act/vol 73 [iU]/L Normal 39-117 [facility] Work Phone: Comment on above: PATIENT WAS FASTINGP ERFORMED BY: ORTIZ [facility] Grbbhs5022 [address] RoadDublin [place] [id number] ALT enzyme act/vol 8 [iU]/L Normal 0-32 [facility] Work Phone: Comment on above: PATIENT WAS FASTINGP ERFORMED BY: [facility] Rcsbwj6091 [address] Roadblin [place] [id number] AST enzyme act/vol 15 [iU]/L Normal 0-40 [facility] Work Phone: Comment on above: PATIENT WAS FASTINGP ERFORMED BY: ORTIZ [facility] Kcnpfd5664 [address] Roadblin [place] [id number] Bilirubin mass conc 0.3 mg/dL Normal 0.0-1.2 Compr ensive [facility] Medicine Work Phone: Comment on above: PATIENT WAS FASTINGP ERFORMED BY: LabSt. [facility] Rivucx7204 Rodriguez RoadAsheville Specialty Hospitalin [place] [id number] Calcium mass conc 9.6 mg/dL Normal 8.7-10.3 Compreh [facility] centerive Internal Medicine Work Phone: Comment on above: PATIENT WAS FASTINGP ERFORMED BY: [facility] Qfnkbh6721 [address] RoadAsheville Specialty Hospitalin [place] [id number] Chloride molar conc 99 mmol/L Normal 97-108 Compr [email or web address]] Internal Medicine Work Phone: Comment on above: PATIENT WAS FASTINGP ERFORMED BY: [facility] Coknhd0819 [address] RoadDublin [place] [id number] CO2 molar conc 27 mmol/L Normal 18-29 Comprehens trupti Internal Medicine Work Phone: Comment on above: PATIENT WAS FASTINGP ERFORMED BY: [facility] Ylapln5471 [address] RoadDublin [place] [id number] Creatinine mass conc 0.91 mg/dL Normal 0.57-1.00 Comp [facility]ronensive [facility] Work Phone: Comment on above: PATIENT WAS FASTINGP ERFORMED BY: [facility] Ytzkvx0352 [address] [facility] Centerbl[facility] [place] [id number] GFR/1.73 sq M predicted among blacks CKD-EPI vol rate/area (S/P/Bld) 71 mL/min/1.73 Normal [facility] Work Phone: Comment on above: PATIENT WAS FASTINGP ERFORMED BY: [facility] Xvhefy5014 [address] Roadblin [place] [id number] GFR/1.73 sq M predicted among non-blacks CKD-EPI vol rate/area (S/P/Bld) 62 mL/min/1.73 Normal Comprehensiv e Internal Medicine Work Phone: Comment on above: PATIENT WAS FASTINGP ERFORMED BY: [facility] Tblnvw4652 [facility] [id number] Globulin mass conc (S) 2.0 g/dL Normal 1.5-4.5 Co mprehensive [facility] Work Phone: Comment on above: PATIENT WAS FASTINGP ERFORMED BY: [facility] Ubnupc[address] [facility]in [place] [id number] Glucose mass conc 82 mg/dL Normal 65-99 Compreh ensive [facility] Medicine Work Phone: Comment on above: PATIENT WAS FASTINGP ERFORMED BY: [facility] Cyhvrc0126 [facility] [id number] Potassium molar conc 4.6 mmol/L Normal 3.5-5.2 Comp rehensive [facility] Medicine Work Phone: Comment on above: PATIENT WAS FASTINGP ERFORMED BY: [facility] Ricqxk4841 [address] [facility]in [place] [id number] Protein mass conc 6.3 g/dL Normal 6.0-8.5 Compreh ensive [facility] Medicine Work Phone: Comment on above: PATIENT WAS FASTINGP ERFORMED BY: [facility] Qzcvzs9539 [address] [facility]in [place] [id number] Sodium molar conc 141 mmol/L Normal 134-144 Compreh ensive [facility] Medicine Work Phone: Comment on above: PATIENT WAS FASTINGP ERFORMED BY: [facility] Ynjzxq8559 [address] RoadDublin [place] [id number] Urea nitrogen mass conc 11 mg/dL Normal 8-27 [facility] Work Phone: Comment on above: PATIENT WAS FASTINGP ERFORMED BY: [facility] Qeueil4848 [address] RoadDublin [place] [id number] Urea nitrogen/Creatinine mass ratio 12 mg/mg Normal 11-26 [facility] Work Phone: Comment on above: PATIENT WAS FASTINGP ERFORMED BY: [facility] Cloedm2826 [address] RoadDublin [place] [id number] MICROALBUMINOrdered By: Solapa4 em Inspector And Clipper on 10-19-2014 Albumin DL <= 20 mg/L mass conc (U) 10.7 ug/mL Normal 0.0-17.0 [facility] Work Phone: Comment on above: PATIENT WAS FASTINGP ERFORMED BY: LabSaint John'S Health SystemDuzktx8754 [address] RoadDublin [place] [id number] Albumin/Creatinine mass ratio (U) 8.1 {mg/g_creat} Normal 0.0-30.0 [facility] Work Phone: Comment on above: PATIENT WAS FASTINGP ERFORMED BY: LabKellie Jusvaf9505 [address] RoadDublin [place] [id number] Creatinine mass conc (U) 132.3 mg/dL Normal 15.0-278.0 [facility] Work Phone: Comment on above: PATIENT WAS FASTINGP ERFORMED BY: LabSt. [facility] Xhunbz7419 [address] RoadDublin [place] [id number] TSH ([id number])Ordered By: Solapa4e m Inspector And Clipper on 10-19-2014 Thyrotropin Qn 1.170 {uIU/mL} Normal 0.450-4.50 0 [facility] Work Phone: Comment on above: PATIENT WAS FASTINGP ERFORMED BY: [facility] Amxxku2671 [address] RoadDublin [place] [id number] URINALYSIS, W/ MICRO ([id number]) Ordered By: Peer Tutor on 10-19-2014 Appearance Nom (U) Clear Normal Compre hensive [facility] Work Phone: Comment on above: PATIENT WAS FASTINGP ERFORMED BY: ORTIZ LabAleksandr CroweGvzklz0447 [address] RoadDublin [place] [id number] Bilirubin Ql (U) Negative Normal Comprehe nsive [facility] Work Phone: Comment on above: PATIENT WAS FASTINGP ERFORMED BY: ORTIZ LabAleksandr CroweQtqaiw7844 [address] RoadDublin [place] [id number] Color Nom (U) Yellow Normal Comprehensi ve Internal Medicine Work Phone: Comment on above: PATIENT WAS FASTINGP ERFORMED BY: ORTIZ LabAleksandr CroweNnkngv3387 [address] RoadDublin [place] [id number] Glucose Ql (U) Negative Normal Comprehens trupti Internal Medicine Work Phone: Comment on above: PATIENT WAS FASTINGP ERFORMED BY: ORTIZ Crowelin6370 [address] RoadDublin [place] [id number] Hemoglobin Ql (U) Negative Normal Compreh ensive [facility] Work Phone: Comment on above: PATIENT WAS FASTINGP ERFORMED BY: ORTIZ Crowelin6370 [address] RoadDublin [place] [id number] Ketones Ql (U) Negative Normal Comprehens trupti Internal Medicine Work Phone: Comment on above: PATIENT WAS FASTINGP ERFORMED BY: ORTIZ Crowelin6370 [address] RoadDublin [place] [id number] Leukocyte esterase Test strip Ql (U) Negative Normal [facility] Work Phone: Comment on above: PATIENT WAS FASTINGP ERFORMED BY: ORTIZ LabKellierp Xnjffr0034 [address] RoadDublin [place] [id number] Microscopic observation LM Nom (Urine sed) See below: Normal [facility] Work Phone: Comment on above: Microscopic was derrick cated and was performed. PATIENT WAS FASTINGP ERFORMED BY: ORTIZ [facility] Qcbtqh1853 [address] RoadDublin [place] [id number] Microscopic observation LM Nom (Urine sed) MICRON Normal [facility] Work Phone: Comment on above: Microscopic follows if indicated. PATIENT WAS FASTINGP ERFORMED BY: ORTIZ LabCoaustyn Dwsojd8145 [address] RoadDublin [place] [id number] Nitrite Ql (U) Negative Normal Comprehens trupti Internal Medicine Work Phone: Comment on above: PATIENT WAS FASTINGP ERFORMED BY: ORTIZ [facility] Jrbkbe5691 [address] RoadDublin [place] [id number] pH (U) 7.0 [pH] Normal 5.0-7.5 [facility] Work Phone: Comment on above: PATIENT WAS FASTINGP ERFORMED BY: ORTIZ [facility] Gmguyh5981 [address] RoadDublin [place] [id number] Protein Ql (U) Trace Normal Comprehens trupti Internal Medicine Work Phone: Comment on above: PATIENT WAS FASTINGP ERFORMED BY: ORTIZ [facility] Lscthq2892 [address] [employer])[place] [id number] Specific gravity Relative Density (U) 1.017 1 Normal 1.005-1.03 0 [facility] Work Phone: Comment on above: PATIENT WAS FASTINGP ERFORMED BY: ORTIZ [facility] Wziyvr4058 [address] RoadDublin [place] [id number] Urobilinogen Test strip mass conc (U) 0.2 mg/dL Normal 0.0-1.9 Comprehensiv e [facility] Medicine Work Phone: Comment on above: PATIENT WAS FASTINGP ERFORMED BY: ORTIZ [facility] Gjbbvc7675 [address] RoadDublin [place] [id number] Vitamin D Hydroxy (01887)Ord ered By: Peer Tutor on 10-19-2014 25-Hydroxyvitamin D2+25-Hydroxyvitamin D3 mass conc 39.6 ng/mL Normal 30.0-100.0 [facility] Work Phone: Comment on above: Vitamin D deficiency has been defined by the [place] of[place]icine and an Endocrine Society practice guideline as alevel of serum 25-OH vitamin D less than 20 ng/mL (1,2).The Endocrine Society went on to further define vitamin Dinsufficiency as a level between 21 and 29 ng/mL (2).1. IOM ([place] of Medicine). 2010. Dietary reference intakes for calcium and D. [place]: The National Academies Press.2. Allie MF, Emile PONCE, Natalie POOLE, et al. Evaluation, treatment, and prevention of vitamin D deficiency: an Endocrine Society clinical practice guideline. JCEM. 2010; 96(7):1911-30. PATIENT WAS FASTINGP ERFORMED BY: LabCoSaint Francis Medical CenterAspkhw5374 [facility] [id number] FECAL OCCULT HGB ASSAY- tube s sent home (57159)Ordered By: Cady Huber on 10-12-2014 Hemoglobin.gastrointes tinal Ql (St) Negative Normal [facility] Work Phone: Office Visit: [facility] 10-10-19 15 cardiac risk group C Invalid Interpretation Code Work4 Work Phone: General cardiovascular disease 10Y risk [#] [place].D'Agostallie N/A Invalid Interpretation Code [facility] Work Phone: Replaced Document: Escobar Watsonon 10-10-2014 electrocardiogram interpretation Sinus Bradycardia WITHIN NORMAL LIMITS Invalid Interpretation Code [facility] Work Phone: GE use only - for LinkLogic import when terms are not otherwise specified 438 ms Invalid Interpretation Code [facility] Work Phone: P wave axis, electrocardiogram 33 deg Invalid Interpretation Code [facility] Work Phone: NV interval, electrocardiogram 164 ms Invalid Interpretation Code [facility] Work Phone: Pulse (Heart Rate) 55 /min Invalid Interpretation Code [facility] Work Phone: QRS axis, electrocardiogram 7 deg Invalid Interpretation Code [facility] Work Phone: QRS duration, electrocardiogram 90 ms Invalid Interpretation Code [facility] Work Phone: QT interval, electrocardiogram new path ms Invalid Interpretation Code [facility] Work Phone: T wave axis, electrocardiogram 41 deg Invalid Interpretation Code [facility] Work Phone: CBC WITH MANUAL DIFF (10935) Ordered By: Peer Tutor on 06-26-2014 Basophils #/vol (Bld) 0.0 {x10E3/uL} Normal 0.0-0.2 [facility] Work Phone: Comment on above: PATIENT WAS FASTINGP ERFORMED BY: Lab[facility] Ecgufi1090 [facility] [id number] Information: [id number] Basophils/100 WBC (Bld) 1 % Normal [facility] Work Phone: Comment on above: PATIENT WAS FASTINGP ERFORMED BY: LabCoSaint Francis Medical CenterEkqqgp8437 [facility] [id number] Information: [id number] Eosinophils #/vol (Bld) 0.2 {x10E3/uL} Normal 0.0-0.4 [facility] Work Phone: Comment on above: PATIENT WAS FASTINGP ERFORMED BY: LabHutzel [facility] Hospital6370 [facility] [id number] Information: [id number] Eosinophils/100 WBC (Bld) 3 % Normal [facility] Work Phone: Comment on above: PATIENT WAS FASTINGP ERFORMED BY: LabHutzel Women'S Hospital6370 [facility] [id number] Information: [id number] Erythrocyte distribution width Ratio (RBC) 13.4 % Normal 12.3-15.4 [facility] Work Phone: Comment on above: PATIENT WAS FASTINGP ERFORMED BY: LabCo Xqgztc1608 [facility] [id number] Information: [id number] Hematocrit Volume Fraction (Bld) 40.5 % Normal 34.0-46.6 [facility] Work Phone: Comment on above: PATIENT WAS FASTINGP ERFORMED BY: LabCo Cxclaq3221 [facility] [id number] Information: [id number] Hemoglobin mass conc (Bld) 13.1 g/dL Normal 11.1-15.9 [facility] Work Phone: Comment on above: PATIENT WAS FASTINGP ERFORMED BY: [place] 5826070 [facility] [id number] Information: [id number] Immature granulocytes #/vol (Bld) 0.0 {x10E3/uL} Normal 0.0-0.1 [facility] Work Phone: Comment on above: PATIENT WAS FASTINGP ERFORMED BY: [address] [id number] Information: [id number] Immature granulocytes/100 WBC (Bld) 0 % Normal [facility] Work Phone: Comment on above: PATIENT WAS FASTINGP ERFORMED BY: [address] [id number] Information: [id number] Lymphocytes #/vol (Bld) 1.1 {x10E3/uL} Normal 0.7-3.1 [facility] Work Phone: Comment on above: PATIENT WAS FASTINGP ERFORMED BY: [place] 5826070 [facility] [id number] Information: [id number] Lymphocytes/100 WBC (Bld) 21 % Normal [facility] Work Phone: Comment on above: PATIENT WAS FASTINGP ERFORMED BY: [address] [id number] Information: [id number] MCH Entitic mass (RBC) 29.4 pg Normal 26.6-33.0 [facility] Work Phone: Comment on above: PATIENT WAS FASTINGP ERFORMED BY: [place] 5826070 [facility] [id number] Information: [id number] MCHC mass conc (RBC) 32.3 g/dL Normal 31.5-35.7 [facility] Internal Medicine Work Phone: Comment on above: PATIENT WAS FASTINGP ERFORMED BY: ORTIZ MeenaSt. Luke'S Hospital Qpohlv3153 [facility] [id number] Information: [id number] MCV Entitic volume (RBC) 91 fL Normal 79-97 [facility] Work Phone: Comment on above: PATIENT WAS FASTINGP ERFORMED BY: [address] [id number] Information: [id number] Monocytes #/vol (Bld) 0.5 {x10E3/uL} Normal 0.1-0.9 [facility] Work Phone: Comment on above: PATIENT WAS FASTINGP ERFORMED BY: ORTIZ [address] [id number] Information: [id number] Monocytes/100 WBC (Bld) 10 % Normal [facility] Work Phone: Comment on above: PATIENT WAS FASTINGP ERFORMED BY: [address] [id number] Information: [id number] Neutrophils #/vol (Bld) 3.7 {x10E3/uL} Normal 1.4-7.0 [facility] Work Phone: Comment on above: PATIENT WAS FASTINGP ERFORMED BY: [address] [id number] Information: [id number] Neutrophils/100 WBC (Bld) 65 % Normal [facility] Work Phone: Comment on above: PATIENT WAS FASTINGP ERFORMED BY: [address] [id number] Information: [id number] Platelets #/vol (Bld) 198 {x10E3/uL} Normal 150-379 [facility] Work Phone: Comment on above: PATIENT WAS FASTINGP ERFORMED BY: [facility] Xexiir0333 [facility] [id number] Information: [id number] RBC #/vol (Bld) 4.45 {x10E6/uL} Normal 3.77-5.28 [facility] Internal Medicine Work Phone: Comment on above: PATIENT WAS FASTINGP ERFORMED BY: [facility] Aemgxf3266 [facility] [id number] Information: [id number] WBC #/vol (Bld) 5.6 {x10E3/uL} Normal 3.4-10.8 [facility] Internal Medicine Work Phone: Comment on above: PATIENT WAS FASTINGP ERFORMED BY: ORTIZ [facility]St[facility] Eotdrg7199 [facility] [id number] Information: [id number] LIPID PANEL ([id number])Ordered B y: Peer Tutor on 06-26-2014 Cholesterol in HDL mass conc 46 mg/dL Normal [facility] Work Phone: Comment on above: According to ATP-III Guidelines, HDL-C >59 mg/dL is considered anegative risk factor for CHD. PATIENT WAS FASTINGP ERFORMED BY: ORTIZ Ameya Hozrwo4394 [facility] [id number] Cholesterol in LDL mass conc 130 mg/dL Abnormal 0-99 [facility] Work Phone: Comment on above: PATIENT WAS FASTINGP ERFORMED BY: [facility]6370 [facility] [id number] Cholesterol in LDL/Cholesterol in HDL mass ratio 2.8 {ratio_units} Normal 0.0-3.2 [facility] Work Phone: Comment on above: LDL/HDL Ratio Men Wo men 1/2 Avg.Risk 1.0 1.5 Avg.Risk 3.6 3.2 2X Avg.Risk 6.2 5.0 3X Avg.Risk 8.0 6.1 PATIENT WAS FASTINGP ERFORMED BY: [place] 5826070 [facility] [id number] Cholesterol in VLDL mass conc 41 mg/dL Abnormal 5-40 [facility] Work Phone: Comment on above: PATIENT WAS FASTINGP ERFORMED BY: ORTIZ LabAleksandr CroweWszaew6754 [facility] [id number] Cholesterol mass conc 217 mg/dL Abnormal 100-199 Com prehensive Internal Medicine Work Phone: Comment on above: PATIENT WAS FASTINGP ERFORMED BY: ORTIZ LabCoaustyn CroweDxgvas7997 [facility] [id number] Triglyceride mass conc 203 mg/dL Abnormal 0-[address] [facility] Work Phone: Comment on above: PATIENT WAS FASTINGP ERFORMED BY: ORTIZ LabAleksandr CroweUbcjwl9075 [facility] [id number] METABOLIC PANEL, COMPREHENSI VE ([id number])Ordered By: Peer Tutor on 06-26-2014 Albumin mass conc 4.0 g/dL Normal 3.5-4.8 Compreh [facility] Internal Medicine Work Phone: Comment on above: PATIENT WAS FASTINGP ERFORMED BY: ORTIZ LabCoaustyn CroweUherxs8524 [facility] [id number] Albumin/Globulin mass ratio 1.7 {ratio} Normal 1.1-2.5 [facility] Internal Medicine Work Phone: Comment on above: PATIENT WAS FASTINGP ERFORMED BY: ORTIZ [facility] Adrdra4864 [facility] [id number] ALP enzyme act/vol 80 [iU]/L Normal 39-117 [facility] Work Phone: Comment on above: PATIENT WAS FASTINGP ERFORMED BY: ORTIZ [facility] Aybecm7105 [facility] [id number] ALT enzyme act/vol 8 [iU]/L Normal 0-32 [facility] Internal Medicine Work Phone: Comment on above: PATIENT WAS FASTINGP ERFORMED BY: ORTIZ [facility] Yuilgi5075 [facility] [id number] AST enzyme act/vol 10 [iU]/L Normal 0-40 [facility] Internal Medicine Work Phone: Comment on above: PATIENT WAS FASTINGP ERFORMED BY: ORTIZ LabCoaustyn ChesterQrdibz0875 [facility] [id number] Bilirubin mass conc 0.3 mg/dL Normal 0.0-1.2 Compr ensive Internal Medicine Work Phone: Comment on above: PATIENT WAS FASTINGP ERFORMED BY: ORTIZ LabCoaustyn CroweOdnvnq6865 [facility] [id number] Calcium mass conc 9.4 mg/dL Normal 8.6-10.2 Compreh [facility] Internal [facility] Work Phone: Comment on above: PATIENT WAS FASTINGP ERFORMED BY: ORTIZ LabAleksandr Chester6370 [facility] [id number] Chloride molar conc 100 mmol/L Normal 97-108 Compr [email or web address] Internal Medicine Work Phone: Comment on above: PATIENT WAS FASTINGP ERFORMED BY: ORTIZ Crowelin6370 [facility] [id number] CO2 molar conc 26 mmol/L Normal 18-29 Comprehens [facility] Internal Medicine Work Phone: Comment on above: PATIENT WAS FASTINGP ERFORMED BY: ORTIZ Chester6370 [facility] [id number] Creatinine mass conc 0.80 mg/dL Normal 0.57-1.00 Comp [facility] Internal Medicine Work Phone: Comment on above: PATIENT WAS FASTINGP ERFORMED BY: ORTIZ [facility] Vgjuib2169 [facility] [id number] GFR/1.73 sq M predicted among blacks CKD-EPI vol rate/area (S/P/Bld) 83 mL/min/1.73 Normal [facility] Work Phone: Comment on above: PATIENT WAS FASTINGP ERFORMED BY: ORTIZ [facility] Oaasww0952 [facility] [id number] GFR/1.73 sq M predicted among non-blacks CKD-EPI vol rate/area (S/P/Bld) 72 mL/min/1.73 Normal Comprehensiv e Internal Medicine Work Phone: Comment on above: PATIENT WAS FASTINGP ERFORMED BY: ORTIZ LabCoaustyn CroweDjuslo0084 [facility] [id number] Globulin mass conc (S) 2.3 g/dL Normal 1.5-4.5 Co mprehensive Internal Medicine Work Phone: Comment on above: PATIENT WAS FASTINGP ERFORMED BY: ORTIZ LabCoaustyn Xfpjew4632 [facility] [id number] Glucose mass conc 90 mg/dL Normal 65-99 Compreh ensive Internal Medicine Work Phone: Comment on above: PATIENT WAS FASTINGP ERFORMED BY: ORTIZ LabAleksandr CroweNxpuny4653 [facility] [id number] Potassium molar conc 4.0 mmol/L Normal 3.5-5.2 Comp rehensive Internal Medicine Work Phone: Comment on above: PATIENT WAS FASTINGP ERFORMED BY: ORITZ Crowelin6370 [facility] [id number] Protein mass conc 6.3 g/dL Normal 6.0-8.5 Compreh ensive Internal Medicine Work Phone: Comment on above: PATIENT WAS FASTINGP ERFORMED BY: ORTIZ Ameyaaustyn CroweNaqrkw6012 [facility] [id number] Sodium molar conc 142 mmol/L Normal 134-144 Compreh ensive Internal Medicine Work Phone: Comment on above: PATIENT WAS FASTINGP ERFORMED BY: ORTIZ LabAleksandr CroweNtkjgq6899 [facility] [id number] Urea nitrogen mass conc 10 mg/dL Normal 8-27 [facility] Work Phone: Comment on above: PATIENT WAS FASTINGP ERFORMED BY: ORTIZ LabCoaustyn CroweKzljeu0415 [facility] [id number] Urea nitrogen/Creatinine mass ratio 13 mg/mg Normal 11-26 [facility] Work Phone: Comment on above: PATIENT WAS FASTINGP ERFORMED BY: ORTIZ LabCoaustyn CroweQpnxaf5099 [facility] [id number] MICROALBUMINOrdered By: Syst em Inspector And Clipper on 06-26-2014 Albumin DL <= 20 mg/L mass conc (U) 12.3 ug/mL Normal 0.0-17.0 [facility] Work Phone: Comment on above: PATIENT WAS FASTINGP ERFORMED BY: ORTIZ [facility] Jgmajt8853 [address] RoadDublin [place] [id number] Albumin/Creatinine mass ratio (U) 7.0 {mg/g_creat} Normal 0.0-30.0 [facility] Work Phone: Comment on above: PATIENT WAS FASTINGP ERFORMED BY: ORTIZ [facility] Lwpucs5526 [address] RoadDublin [place] [id number] Creatinine mass conc (U) 176.5 mg/dL Normal 15.0-278.0 [facility] Work Phone: Comment on above: PATIENT WAS FASTINGP ERFORMED BY: ORITZ [facility] Nmxdgx0664 [address] RoadDublin [place] [id number] TSH ([id number])Ordered By: Syste m Inspector And Clipper on 06-26-2014 Thyrotropin Qn 1.220 {uIU/mL} Normal 0.450-4.50 0 [facility] Internal Medicine Work Phone: Comment on above: PATIENT WAS FASTINGP ERFORMED BY: ORTIZ [facility] Aaqvmm6793 [address] RoadDublin [place] [id number] URINALYSIS, W/ MICRO ([id number]) Ordered By: Peer Tutor on 06-26-2014 Appearance Nom (U) Clear Normal Compre hensive Internal Medicine Work Phone: Comment on above: PATIENT WAS FASTINGP ERFORMED BY: ORTIZ [facility] Zhaekc9029 [address] RoadDublin [place] [id number] Bilirubin Ql (U) Negative Normal Comprehe nsive Internal Medicine Work Phone: Comment on above: PATIENT WAS FASTINGP ERFORMED BY: ORTIZ [facility] Dlqksf9538 [address] RoadDublin [place] [id number] Color Nom (U) Yellow Normal Comprehensi ve Internal Medicine Work Phone: Comment on above: PATIENT WAS FASTINGP ERFORMED BY: ORTIZ [facility] Mvfsjt7807 [address] RoadDublin [place] [id number] Glucose Ql (U) Negative Normal Comprehens trupti Internal Medicine Work Phone: Comment on above: PATIENT WAS FASTINGP ERFORMED BY: CB [facility] Tqtido8029 [address] RoadDublin [place] [id number] Hemoglobin Ql (U) Negative Normal Compreh ensive Internal Medicine Work Phone: Comment on above: PATIENT WAS FASTINGP ERFORMED BY: ORTIZ [facility] Gjthvm4361 [address] RoadDublin [place] [id number] Ketones Ql (U) Negative Normal Comprehens trupti Internal Medicine Work Phone: Comment on above: PATIENT WAS FASTINGP ERFORMED BY: ORTIZ [facility] Jnpxsv1910 [address] RoadDublin [place] [id number] Leukocyte esterase Test strip Ql (U) Negative Normal [facility] Work Phone: Comment on above: PATIENT WAS FASTINGP ERFORMED BY: ORTIZ [facility] Cnecrk4666 [address] RoadDublin [place] [id number] Microscopic observation LM Nom (Urine sed) See below: Normal [facility] Work Phone: Comment on above: Microscopic was derrick cated and was performed. PATIENT WAS FASTINGP ERFORMED BY: ORTIZ [facility] Lqbdqs0457 [address] RoadDublin [place] [id number] Microscopic observation LM Nom (Urine sed) MICRON Normal [facility] Work Phone: Comment on above: Microscopic follows if indicated. PATIENT WAS FASTINGP ERFORMED BY: CB [facility] Wbrttz3616 [address] RoadDublin [place] [id number] Nitrite Ql (U) Negative Normal Comprehens trupti Internal Medicine Work Phone: Comment on above: PATIENT WAS FASTINGP ERFORMED BY: CB [facility] Miglmf6871 [address] RoadDublin [place] [id number] pH (U) 5.5 [pH] Normal 5.0-7.5 [facility] Work Phone: Comment on above: PATIENT WAS FASTINGP ERFORMED BY: CB [facility] Hkmeew5746 [address] RoadDublin [place] [id number] Protein Ql (U) Negative Normal Comprehens trupti Internal Medicine Work Phone: Comment on above: PATIENT WAS FASTINGP ERFORMED BY: ORTIZ [facility] Eztnms8980 [address] RoadDublin [place] [id number] Specific gravity Relative Density (U) 1.020 1 Normal 1.005-1.03 0 [facility] Work Phone: Comment on above: PATIENT WAS FASTINGP ERFORMED BY: CB [facility] Liwgvr6580 [address] RoadDublin [place] [id number] Urobilinogen Test strip mass conc (U) 0.2 mg/dL Normal 0.0-1.9 Comprehensiv e Internal Medicine Work Phone: Comment on above: PATIENT WAS FASTINGP ERFORMED BY: CB [facility] Elkkry9395 [address] RoadDublin [place] [id number] Vitamin D Hydroxy (57474)Ord ered By: Peer Tutor on 06-26-2014 25-Hydroxyvitamin D2+25-Hydroxyvitamin D3 mass conc 38.9 ng/mL Normal 30.0-100.0 [facility] Work Phone: Comment on above: Vitamin D deficiency has been defined by the [place] of[place]icine and an Endocrine Society practice guideline as alevel of serum 25-OH vitamin D less than 20 ng/mL (1,2).The Endocrine Society went on to further define vitamin Dinsufficiency as a level between 21 and 29 ng/mL (2).1. IOM ([place] of Medicine). 2010. Dietary reference intakes for calcium and D. [place]: The National Academies Press.2. Allie MF, Emile NC, Jaja-Mg POOLE, et al. Evaluation, treatment, and prevention of vitamin D deficiency: an Endocrine Society clinical practice guideline. JCEM. 2010; 96(7):1911-30. PATIENT WAS FASTINGP ERFORMED BY: CB [facility] Xvbntv6887 [address] RoadDublin [place] [id number] URINE IBRAHIMA CULTURE-IDENTIFICA TN (98526)Ordered By: Peer Tutor on 04-17-2014 Bacteria identified Cx Nom (U) Escherichia coli Abnormal [facility] Work Phone: Comment on above: Greater than 100,000 colony forming units per mL PATIENT NOT FASTINGP ERFORMED BY: [facility] Hreseo4899 [facility] [id number] Information: [id number] Bacteria identified Cx Nom (U) Final report Abnormal [facility] Work Phone: Comment on above: PATIENT NOT FASTINGP ERFORMED BY: [facility] Ppjfwp8660 [facility] [id number] Information: [id number] Other Antibiotic [facility] prehensive Internal Medicine Work Phone: Comment on above: S = Susceptibl e; I = Intermediate; R = Resistant P = Positive; N = Negative MICS are expressed in micrograms per mL Antibiotic RSLT#1 RSLT#2 RSLT#3 RSLT#4Amoxicillin/Clavulanic Acid SAmpicillin SCefepime SCeftriaxone SCefuroxime SCephalothin SCiprofloxacin SErtapenem SGentamicin SImipenem SLevofloxacin SNitrofurantoin SPiperacillin STetracycline STobramycin STrimethoprim/Sulfa S PATIENT NOT FASTINGP ERFORMED BY: [facility] Nsugqr1412 [facility] [id number] Information: [id number] Urinalysis, Office ([id number])Or dered By: Alyson Dixon on 04-17-2014 Bilirubin [...] Medicine Work Phone: CBC WITH MANUAL DIFF ([id number]) Ordered By: Peer Tutor on 04-06-2014 Basophils #/vol (Bld) 0.0 {x10E3/uL} Normal 0.0-0.2 [facility] Work Phone: Comment on above: PATIENT NOT FASTINGP ERFORMED BY: [employer] Llgymc9989 [address] [employer] [id number] Information: [id number] Basophils/100 WBC (Bld) 0 % Normal 0-3 [facility] Work Phone: Comment on above: PATIENT NOT FASTINGP ERFORMED BY: CB [facility] Nbbxxo9742 [address] [employer] [id number] Information: [id number] Eosinophils #/vol (Bld) 0.1 {x10E3/uL} Normal 0.0-0.4 [facility] Work Phone: Comment on above: PATIENT NOT FASTINGP ERFORMED BY: Familiar [facility] Wcxukk0448 [address] [employer] [id number] Information: [id number] Eosinophils/100 WBC (Bld) 2 % Normal 0-5 [facility] Work Phone: Comment on above: PATIENT NOT FASTINGP ERFORMED BY: [facility] Krqctl9491 [facility] [id number] Information: [id number] Erythrocyte distribution width Ratio (RBC) 13.5 % Normal 12.3-15.4 [facility] Work Phone: Comment on above: PATIENT NOT FASTINGP ERFORMED BY: ORTIZ [facility] Sptxiw0867 [facility] [id number] Information: [id number] Hematocrit Volume Fraction (Bld) 38.1 % Normal 34.0-46.6 [facility] Work Phone: Comment on above: PATIENT NOT FASTINGP ERFORMED BY: [facility] Dqicpb9963 [facility] [id number] Information: [id number] Hemoglobin mass conc (Bld) 12.8 g/dL Normal 11.1-15.9 [facility] Work Phone: Comment on above: PATIENT NOT FASTINGP ERFORMED BY: [facility] Qotuok7503 [facility] [id number] Information: [id number] Immature granulocytes #/vol (Bld) 0.0 {x10E3/uL} Normal 0.0-0.1 [facility] Work Phone: Comment on above: PATIENT NOT FASTINGP ERFORMED BY: LabCoSaint Francis Medical CenterSkkkon7872 [facility] [id number] Information: [id number] Immature granulocytes/100 WBC (Bld) 0 % Normal 0-2 [facility] Work Phone: Comment on above: PATIENT NOT FASTINGP ERFORMED BY: [facility] Oosigc1746 [facility] [id number] Information: [id number] Lymphocytes #/vol (Bld) 1.5 {x10E3/uL} Normal 0.7-3.1 [facility] Work Phone: Comment on above: PATIENT NOT FASTINGP ERFORMED BY: [facility] Kfxhmu9215 [facility] [id number] Information: [id number] Lymphocytes/100 WBC (Bld) 26 % Normal 14-46 [facility] Work Phone: Comment on above: PATIENT NOT FASTINGP ERFORMED BY: CB [facility] Wlbolq8964 [facility] [id number] Information: [id number] MCH Entitic mass (RBC) 31.1 pg Normal 26.6-33.0 [facility] Internal Medicine Work Phone: Comment on above: PATIENT NOT FASTINGP ERFORMED BY: [place] 5826070 [facility] [id number] Information: [id number] MCHC mass conc (RBC) 33.6 g/dL Normal 31.5-35.7 [facility] Internal Medicine Work Phone: Comment on above: PATIENT NOT FASTINGP ERFORMED BY: [address] [id number] Information: [id number] MCV Entitic volume (RBC) 93 fL Normal 79-97 [facility] Internal Medicine Work Phone: Comment on above: PATIENT NOT FASTINGP ERFORMED BY: [address] [id number] Information: [id number] Monocytes #/vol (Bld) 0.5 {x10E3/uL} Normal 0.1-0.9 [facility] Work Phone: Comment on above: PATIENT NOT FASTINGP ERFORMED BY: [place] 5826070 [facility] [id number] Information: [id number] Monocytes/100 WBC (Bld) 9 % Normal 4-12 [facility] Work Phone: Comment on above: PATIENT NOT FASTINGP ERFORMED BY: [place] 5826070 [facility] [id number] Information: [id number] Neutrophils #/vol (Bld) 3.5 {x10E3/uL} Normal 1.4-7.0 [facility] Work Phone: Comment on above: PATIENT NOT FASTINGP ERFORMED BY: [address] [id number] Information: [id number] Neutrophils/100 WBC (Bld) 63 % Normal 40-74 [facility] Work Phone: Comment on above: PATIENT NOT FASTINGP ERFORMED BY: ORTIZ Chester6370 [facility] [id number] Information: [id number] Platelets #/vol (Bld) 193 {x10E3/uL} Normal 150-379 [facility] Work Phone: Comment on above: PATIENT NOT FASTINGP ERFORMED BY: ORTIZ Hou Qnflgz[address] [id number] Information: [id number] RBC #/vol (Bld) 4.12 {x10E6/uL} Normal 3.77-5.28 [facility] Internal Medicine Work Phone: Comment on above: PATIENT NOT FASTINGP ERFORMED BY: ORTIZ Crowelin6370 [facility] [id number] Information: [id number] WBC #/vol (Bld) 5.6 {x10E3/uL} Normal 3.4-10.8 [facility] Internal Medicine Work Phone: Comment on above: PATIENT NOT FASTINGP ERFORMED BY: ORTIZ Crowelin6370 [facility] [id number] Information: [id number] LIPID PANEL (90884)Ordered B y: Peer Tutor on 04-06-2014 Cholesterol in HDL mass conc 54 mg/dL Normal [facility] Work Phone: Comment on above: According to ATP-III Guidelines, HDL-C >59 mg/dL is considered anegative risk factor for CHD. PATIENT NOT FASTINGP ERFORMED BY: ORTIZ Crowelin6370 [facility] [id number] Cholesterol in LDL mass conc 63 mg/dL Normal 0-99 [facility] Work Phone: Comment on above: PATIENT NOT FASTINGP ERFORMED BY: CB [facility] Syamsh8605 [address] RoadDublin [place] [id number] Cholesterol in LDL/Cholesterol in HDL mass ratio 1.2 {ratio_units} Normal 0.0-3.2 [facility] Work Phone: Comment on above: PATIENT NOT FASTINGP ERFORMED BY: ORTIZ LabAleksandr Euiknv4063 [address] RoadDublin [place] [id number] Cholesterol in VLDL mass conc 41 mg/dL Abnormal 5-40 [facility] Work Phone: Comment on above: PATIENT NOT FASTINGP ERFORMED BY: ORTIZ [facility] Rdowvc8468 [address] RoadDublin [place] [id number] Cholesterol mass conc 158 mg/dL Normal 100-199 Com prehensive Internal Medicine Work Phone: Comment on above: PATIENT NOT FASTINGP ERFORMED BY: ORTIZ Ameyaaustyn Zydngb9788 [address] RoadDublin [place] [id number] Triglyceride mass conc 206 mg/dL Abnormal 0-149 Co [facility] Work Phone: Comment on above: PATIENT NOT FASTINGP ERFORMED BY: ORTIZ [facility] Gzqqxc8380 [address] RoadDublin [place] [id number] METABOLIC PANEL, COMPREHENSI VE (09397)Ordered By: Peer Tutor on 04-06-2014 Albumin mass conc 4.3 g/dL Normal 3.5-4.8 Compreh ensive Internal Medicine Work Phone: Comment on above: PATIENT NOT FASTINGP ERFORMED BY: ORTIZ [facility] Pcyxpv2235 [address] RoadDublin [place] [id number] Albumin/Globulin mass ratio 2.2 {ratio} Normal 1.1-2.5 [facility] Work Phone: Comment on above: PATIENT NOT FASTINGP ERFORMED BY: ORTIZ [facility] Tuleaz5369 [address] RoadDublin [place] [id number] ALP enzyme act/vol 87 [iU]/L Normal 39-117 Compre [facility] Internal Medicine Work Phone: Comment on above: PATIENT NOT FASTINGP ERFORMED BY: ORTIZ [facility] Bijfjp9166 [address] RoadDublin [place] [id number] ALT enzyme act/vol 14 [iU]/L Normal 0-32 Compre [facility] Internal Medicine Work Phone: Comment on above: PATIENT NOT FASTINGP ERFORMED BY: CB [facility] Kvkjet8364 [address] RoadDublin [place] [id number] AST enzyme act/vol 18 [iU]/L Normal 0-40 Compre [facility] Internal Medicine Work Phone: Comment on above: PATIENT NOT FASTINGP ERFORMED BY: CB [facility] Afpeog9775 [address] RoadAsheville Specialty Hospitalin [place] [id number] Bilirubin mass conc 0.3 mg/dL Normal 0.0-1.2 Compr ensive Internal Medicine Work Phone: Comment on above: PATIENT NOT FASTINGP ERFORMED BY: CB [facility] Gmympu1729 Rodriguez RoadAt[facility] [id number] Calcium mass conc 10.0 mg/dL Normal 8.6-10.2 Compreh [facility] Internal [facility] Work Phone: Comment on above: PATIENT NOT FASTINGP ERFORMED BY: CB [facility] Pzonkw7633 [facility] [id number] Chloride molar conc 101 mmol/L Normal 97-108 Compr ensive Internal Medicine Work Phone: Comment on above: PATIENT NOT FASTINGP ERFORMED BY: CB [facility] Fketzz1822 [facility] [id number] CO2 molar conc 28 mmol/L Normal 18-29 Comprehens trupti Internal Medicine Work Phone: Comment on above: PATIENT NOT FASTINGP ERFORMED BY: CB [facility] Ycdxtb0638 Rodriguez RoadAsheville Specialty Hospitalin [place] [id number] Creatinine mass conc 0.73 mg/dL Normal 0.57-1.00 Comp [facility] Work Phone: Comment on above: PATIENT NOT FASTINGP ERFORMED BY: CB [facility] Snzmqu8112 [address] [facility]in [place] [id number] GFR/1.73 sq M predicted among blacks CKD-EPI vol rate/area (S/P/Bld) 94 mL/min/1.73 Normal [facility] Work Phone: Comment on above: PATIENT NOT FASTINGP ERFORMED BY: CB [facility] Ypnywc7972 [address] RoadDublin [place] [id number] GFR/1.73 sq M predicted among non-blacks CKD-EPI vol rate/area (S/P/Bld) 81 mL/min/1.73 Normal Comprehensiv e Internal Medicine Work Phone: Comment on above: PATIENT NOT FASTINGP ERFORMED BY: CB [facility] Tanvls6367 [address] Roadblin [place] [id number] Globulin mass conc (S) 2.0 g/dL Normal 1.5-4.5 Co mprehensive Internal Medicine Work Phone: Comment on above: PATIENT NOT FASTINGP ERFORMED BY: CB [facility] Pogwlt1463 [address] RoadDublin [place] [id number] Glucose mass conc 87 mg/dL Normal 65-99 Compreh ensive Internal Medicine Work Phone: Comment on above: PATIENT NOT FASTINGP ERFORMED BY: CB [facility] Qtslbk0462 [address] RoadDublin [place] [id number] Potassium molar conc 5.0 mmol/L Normal 3.5-5.2 Comp rehensive Internal Medicine Work Phone: Comment on above: PATIENT NOT FASTINGP ERFORMED BY: CB [facility] Xqqbjd8809 Rodriguez RoadDublin [place] [id number] Protein mass conc 6.3 g/dL Normal 6.0-8.5 Compreh ensive Internal Medicine Work Phone: Comment on above: PATIENT NOT FASTINGP ERFORMED BY: CB [facility] Ozyzur5196 Rodriguez RoadDublin [place] [id number] Sodium molar conc 142 mmol/L Normal 134-144 Compreh ensive Internal Medicine Work Phone: Comment on above: PATIENT NOT FASTINGP ERFORMED BY: CB [facility] Jysvgm4384 [address] RoadDublin [place] [id number] Urea nitrogen mass conc 12 mg/dL Normal 8-27 [facility] Work Phone: Comment on above: PATIENT NOT FASTINGP ERFORMED BY: ORTIZ [facility] Dkkbzl4974 Rodriguez RoadDublin [place] [id number] Urea nitrogen/Creatinine mass ratio 16 mg/mg Normal 11-26 [facility] Work Phone: Comment on above: PATIENT NOT FASTINGP ERFORMED BY: ORTIZ [facility] Smdnto4591 [address] RoadDublin [place] [id number] TSH (86053)Ordered By: Samantha m Inspector And Clipper on 04-06-2014 Thyrotropin Qn 0.748 {uIU/mL} Normal 0.450-4.50 0 [facility] Work Phone: Comment on above: PATIENT NOT FASTINGP ERFORMED BY: [facility] Hdnzoo0107 [address] SyMyndblin [place] [id number] Vitamin D Hydroxy (08108)Ord ered By: Peer Tutor on 04-06-2014 25-Hydroxyvitamin D2+25-Hydroxyvitamin D3 mass conc 29.5 ng/mL Abnormal 30.0-100.0 [facility] Work Phone: Comment on above: Vitamin D deficiency has been defined by the [place] of[place] and an Endocrine Society practice guideline as alevel of serum 25-OH vitamin D less than 20 ng/mL (1,2).The Endocrine Society went on to further define vitamin Dinsufficiency as a level between 21 and 29 ng/mL (2).1. IOM ([place] of Medicine). 2010. Dietary reference intakes for calcium and D. [place]: The National Academies Press.2. Allie MF, Emile PONCE, Natalie POOLE, et al. Evaluation, treatment, and prevention of vitamin D deficiency: an Endocrine Society clinical practice guideline. JCEM. 2010; 96(7):1911-30. PATIENT NOT FASTINGP ERFORMED BY: [facility] Oxezew9954 [address] RoadDublin [place] [id number] CBC WITH MANUAL DIFF (47810) Ordered By: Peer Tutor on 12-22-2013 Basophils #/vol (Bld) 0.0 {x10E3/uL} Normal 0.0-0.2 [facility] Work Phone: Comment on above: PATIENT NOT FASTINGP ERFORMED BY: ORTIZ [facility] Svbpwo5624 [address] [facility] [id number] Information: [id number], [id number] Basophils/100 WBC (Bld) 0 % Normal 0-3 [facility] Work Phone: Comment on above: PATIENT NOT FASTINGP ERFORMED BY: [facility] Lngzzk5915 [address] [facility] [id number] Information: [id number] Eosinophils #/vol (Bld) 0.1 {x10E3/uL} Normal 0.0-0.4 [facility] Work Phone: Comment on above: PATIENT NOT FASTINGP ERFORMED BY: [facility] Nqcuzl2181 [address] [facility] [id number] Information: [id number], [id number] Eosinophils/100 WBC (Bld) 2 % Normal 0-5 [facility] Work Phone: Comment on above: PATIENT NOT FASTINGP ERFORMED BY: [facility] Ogexju6660 [address] [facility] [id number] Information: [id number], [id number] Erythrocyte distribution width Ratio (RBC) 13.7 % Normal 12.3-15.4 [facility] Work Phone: Comment on above: PATIENT NOT FASTINGP ERFORMED BY: [facility] Czvufg5093 [facility] [id number] Information: [id number], [id number] Hematocrit Volume Fraction (Bld) 38.4 % Normal 34.0-46.6 [facility] Work Phone: Comment on above: PATIENT NOT FASTINGP ERFORMED BY: [facility] Vaktyn9202 [address] [facility] [id number] Information: [id number], [id number] Hemoglobin mass conc (Bld) 12.8 g/dL Normal 11.1-15.9 [facility] Work Phone: Comment on above: PATIENT NOT FASTINGP ERFORMED BY: [facility] Crobyl1629 [address] [facility] [id number] Information: [id number], [id number] Immature granulocytes #/vol (Bld) 0.0 {x10E3/uL} Normal 0.0-0.1 [facility] Work Phone: Comment on above: PATIENT NOT FASTINGP ERFORMED BY: ORTIZ [facility] Bmolhq9431 [facility] [id number] Information: [id number], 143731 Immature granulocytes/100 WBC (Bld) 0 % Normal 0-2 [facility] Work Phone: Comment on above: PATIENT NOT FASTINGP ERFORMED BY: [facility]CoSaint Francis Medical CenterUsbdhn9299 [facility] [id number] Information: [id number], 443974 Lymphocytes #/vol (Bld) 1.1 {x10E3/uL} Normal 0.7-3.1 [facility] Work Phone: Comment on above: PATIENT NOT FASTINGP ERFORMED BY: [facility] Auxzqs5935 [facility] [id number] Information: [id number], 011259 Lymphocytes/100 WBC (Bld) 22 % Normal 14-46 [facility] Work Phone: Comment on above: PATIENT NOT FASTINGP ERFORMED BY: [facility] Xebmkx0710 [facility] [id number] Information: D85961, 626756 MCH Entitic mass (RBC) 30.6 pg Normal 26.6-33.0 [facility] Internal Medicine Work Phone: Comment on above: PATIENT NOT FASTINGP ERFORMED BY: [facility] Klnoyi6264 [facility] [id number] Information: Z09762, 209118 MCHC mass conc (RBC) 33.3 g/dL Normal 31.5-35.7 [facility] Internal Medicine Work Phone: Comment on above: PATIENT NOT FASTINGP ERFORMED BY: [facility] Jkbsdq5689 [facility] [id number] Information: [id number], 619919 MCV Entitic volume (RBC) 92 fL Normal 79-97 [facility] Work Phone: Comment on above: PATIENT NOT FASTINGP ERFORMED BY: ORTIZ RobledoCoaustyn ChesterFseksm4747 [facility] [id number] Information: [id number], 988033 Monocytes #/vol (Bld) 0.4 {x10E3/uL} Normal 0.1-0.9 [facility] Work Phone: Comment on above: PATIENT NOT FASTINGP ERFORMED BY: ORTIZ LabCoJoshua Ville 0391470 [facility] [id number] Information: Y50579, 607047 Monocytes/100 WBC (Bld) 8 % Normal 4-12 [facility] Work Phone: Comment on above: PATIENT NOT FASTINGP ERFORMED BY: [facility]6370 [facility] [id number] Information: H50427, 862995 Neutrophils #/vol (Bld) 3.3 {x10E3/uL} Normal 1.4-7.0 [facility] Work Phone: Comment on above: PATIENT NOT FASTINGP ERFORMED BY: ORTIZ Hou Yiueoc6596 [facility] [id number] Information: [id number], 344034 Neutrophils/100 WBC (Bld) 68 % Normal 40-74 [facility] Work Phone: Comment on above: PATIENT NOT FASTINGP ERFORMED BY: LabCoSaint Francis Medical CenterKinywb1856 [facility] [id number] Information: R03561, 739598 Platelets #/vol (Bld) 190 {x10E3/uL} Normal 155-379 [facility] Work Phone: Comment on above: PATIENT NOT FASTINGP ERFORMED BY: LabCoSaint Francis Medical CenterRnessg6826 [facility] [id number] Information: G05202, 247912 RBC #/vol (Bld) 4.18 {x10E6/uL} Normal 3.77-5.28 [facility] Internal Medicine Work Phone: Comment on above: PATIENT NOT FASTINGP ERFORMED BY: ORTIZ Chester6[address] [facility] [id number] Information: [id number], 861033 WBC #/vol (Bld) 4.8 {x10E3/uL} Normal 3.4-10.8 [facility] Internal Medicine Work Phone: Comment on above: PATIENT NOT FASTINGP ERFORMED BY: ORTIZ Hou Namdod5602 [facility] [id number] Information: Y86449, 820954 D-Dimer (73668)Ordered By: Dc keithtem Inspector And Clipper on 12-22-2013 D-Dimer (41453) 0.40 {ug_FEU/mL} Normal 0.00-0.49 [facility] Internal Medicine Work Phone: Comment on above: In conjunction with a non-high clinical probability assessment, anormal (<0.50 ug FEU/mL) result excludes deep vein thrombosis (DVT)and pulmonary embolism (PE) with high sensitivity. PATIENT NOT FASTINGP ERFORMED BY: ORTIZ Chester6370 [facility] [id number] PT (Prothrobim Time) (59032) Ordered By: Peer Tutor on 12-22-2013 INR Coag RelTime (PPP) 1.0 {INR} Normal 0.8-1.2 [facility] Internal Medicine Work Phone: Comment on above: Reference interval i s for non-anticoagulated patients. . Suggested INR therapeutic range for Vitamin K antagonist therapy: Standard Dose (moderate intensity therapeutic range): 2.0 - 3.0 Higher intensity therapeutic range 2.5 - 3.5 PATIENT NOT FASTINGP ERFORMED BY: ORTIZ Hou Fljwit4226 [facility] [id number] Prothrombin time (PT) Coag time (PPP) 10.6 {sec} Normal 9.1-12.0 [facility] Internal Medicine Work Phone: Comment on above: PATIENT NOT FASTINGP ERFORMED BY: [facility] [facility] [place] [id number] PTT (Activated Partial Throm boplastin Time) (30935)Ordered By: Peer Tutor on 12-22-2013 aPTT Coag time (PPP) 26 {sec} Normal 24-33 [facility] Internal Medicine Work Phone: Comment on above: This test has not be en validated for monitoring unfractionated heparintherapy. aPTT-based therapeutic ranges for unfractionated heparintherapy have not been established. For general guidelines onHeparin monitoring, refer to the [facility] Directory of Services. PATIENT NOT FASTINGP ERFORMED BY: Prax[employer] Engineering TechnologiesMesilla Valley HospitalJqrjzq1668 [facility] [id number] MICROALBUMINOrdered By: Syst em Inspector And Clipper on 12-05-2013 Albumin DL <= 20 mg/L mass conc (U) 23.2 ug/mL Abnormal 0.0-17.0 [facility] Work Phone: Comment on above: PATIENT NOT FASTINGP ERFORMED BY: [facility] Hospital6370 [facility]in [place] [id number] Albumin/Creatinine mass ratio (U) 14.1 {mg/g_creat} Normal 0.0-30.0 [facility] Work Phone: Comment on above: PATIENT NOT FASTINGP ERFORMED BY: [facility]iH[facility]zel [facility] Hospital6370 [facility] [id number] Creatinine mass conc (U) 164.8 mg/dL Normal 15.0-278.0 [facility] Work Phone: Comment on above: PATIENT NOT FASTINGP ERFORMED BY: [facility] Hospital6370 [facility]in [place] [id number] URINALYSIS, W/ MICRO (33570) Ordered By: Peer Tutor on 12-05-2013 Appearance Nom (U) Cloudy Abnormal Compre [facility]inter[facility] Internal Medicine Work Phone: Comment on above: PATIENT NOT FASTINGP ERFORMED BY: [facility]6370 [facility] [id number] Information: [id number] Bilirubin Ql (U) Negative Normal Comprehe nsive Internal Medicine Work Phone: Comment on above: PATIENT NOT FASTINGP ERFORMED BY: ORTIZ [facility] Oknnds4680 Rodriguez RoadAtrium Health Cabarrus [id number] Information: [id number] Color Nom (U) Yellow Normal Comprehensi ve Internal Medicine Work Phone: Comment on above: PATIENT NOT FASTINGP ERFORMED BY: ORTIZ [facility] Xyysgk1312 [address] [facility] [id number] Information: Y32276 Glucose Ql (U) Negative Normal Comprehens trupti Internal Medicine Work Phone: Comment on above: PATIENT NOT FASTINGP ERFORMED BY: ORTIZ LabKellierp Craxrw3987 Rodriguez RoadAtrium Health Cabarrus [id number] Information: S02851 Hemoglobin Ql (U) Negative Normal Compreh ensive Internal Medicine Work Phone: Comment on above: PATIENT NOT FASTINGP ERFORMED BY: ORTIZ [facility] Ucptkr2550 [address] [facility] [id number] Information: Z76432 Ketones Ql (U) Negative Normal Comprehens trupti Internal Medicine Work Phone: Comment on above: PATIENT NOT FASTINGP ERFORMED BY: ORTIZ LabKellierp Kbmztn3414 [address] [facility] [id number] Information: K17941 Leukocyte esterase Test strip Ql (U) Negative Normal [facility] Work Phone: Comment on above: PATIENT NOT FASTINGP ERFORMED BY: ORTIZ [facility] Wnvppm6749 [address] [facility] [id number] Information: [id number] Microscopic observation LM Nom (Urine sed) See below: Normal [facility] Work Phone: Comment on above: PATIENT NOT FASTINGP ERFORMED BY: ORTIZ [facility] Ihmtbp1729 [address] [facility] [id number] Information: V41613 Microscopic observation LM Nom (Urine sed) MICRON Normal [facility] Work Phone: Comment on above: Microscopic follows if indicated. PATIENT NOT FASTINGP ERFORMED BY: ORTIZ [facility] Ivjenb2433 Rodriguez RoadAsheville Specialty Hospitalin [place] [id number] Information: R53823 Nitrite Ql (U) Negative Normal Comprehens trupti Internal Medicine Work Phone: Comment on above: PATIENT NOT FASTINGP ERFORMED BY: ORTIZ [facility] Xvwzjb1173 Rodriguez RoadAsheville Specialty Hospitalin [place] [id number] Information: F21900 pH (U) 5.0 [pH] Normal 5.0-7.5 [facility] Work Phone: Comment on above: PATIENT NOT FASTINGP ERFORMED BY: ORTIZ [facility] Qvldpv8156 Rodriguez Roadblin [place] [id number] Information: A24692 Protein Ql (U) Negative Normal Comprehens trupti Internal Medicine Work Phone: Comment on above: PATIENT NOT FASTINGP ERFORMED BY: [facility]St[facility] Aquyjp2086 [address] [facility] [id number] Information: C26194 Specific gravity Relative Density (U) 1.017 1 Normal 1.005-1.03 0 [facility] Work Phone: Comment on above: PATIENT NOT FASTINGP ERFORMED BY: ORTIZ Hou Dghgye7190 [address] [facility] [id number] Information: Z73633 Urobilinogen Test strip mass conc (U) 0.2 mg/dL Normal 0.0-1.9 Comprehensiv e Internal Medicine Work Phone: Comment on above: PATIENT NOT FASTINGP ERFORMED BY: [facility] Aphdvz4439 [address] [facility] Centerin [place] [id number] Information: [id number] CBC WITH MANUAL DIFF (89670) Ordered By: Peer Tutor on 12-01-2013 Basophils #/vol (Bld) 0.0 {x10E3/uL} Normal 0.0-0.2 [facility] Work Phone: Comment on above: PATIENT WAS FASTINGP ERFORMED BY: [facility] Iurwqd7781 [facility] [id number] Information: 861516,P70477 Basophils/100 WBC (Bld) 0 % Normal 0-3 [facility] Work Phone: Comment on above: PATIENT WAS FASTINGP ERFORMED BY: [place] 5826070 [facility] [id number] Information: [id number],N67418 Eosinophils #/vol (Bld) 0.1 {x10E3/uL} Normal 0.0-0.4 [facility] Work Phone: Comment on above: PATIENT WAS FASTINGP ERFORMED BY: [address] [id number] Information: [id number],Z24318 Eosinophils/100 WBC (Bld) 1 % Normal 0-5 [facility] Work Phone: Comment on above: PATIENT WAS FASTINGP ERFORMED BY: [address] [id number] Information: 166356,H30348 Erythrocyte distribution width Ratio (RBC) 13.5 % Normal 12.3-15.4 [facility] Work Phone: Comment on above: PATIENT WAS FASTINGP ERFORMED BY: [address] [id number] Information: [id number],W38080 Hematocrit Volume Fraction (Bld) 40.8 % Normal 34.0-46.6 [facility] Work Phone: Comment on above: PATIENT WAS FASTINGP ERFORMED BY: [place] 5826070 [facility] [id number] Information: 033414,V66583 Hemoglobin mass conc (Bld) 13.2 g/dL Normal 11.1-15.9 [facility] Work Phone: Comment on above: PATIENT WAS FASTINGP ERFORMED BY: [address] [id number] Information: 174190,Y43789 Immature granulocytes #/vol (Bld) 0.0 {x10E3/uL} Normal 0.0-0.1 [facility] Work Phone: Comment on above: PATIENT WAS FASTINGP ERFORMED BY: [place] 5826070 [facility] [id number] Information: 948416,Z06402 Immature granulocytes/100 WBC (Bld) 0 % Normal 0-2 [facility] Work Phone: Comment on above: PATIENT WAS FASTINGP ERFORMED BY: [address] [id number] Information: [id number],E45971 Lymphocytes #/vol (Bld) 1.4 {x10E3/uL} Normal 0.7-3.1 [facility] Work Phone: Comment on above: PATIENT WAS FASTINGP ERFORMED BY: [address] [id number] Information: 524134,P99973 Lymphocytes/100 WBC (Bld) 18 % Normal 14-46 [facility] Work Phone: Comment on above: PATIENT WAS FASTINGP ERFORMED BY: [address] [id number] Information: 054643,N41352 MCH Entitic mass (RBC) 30.1 pg Normal 26.6-33.0 [facility] Internal Medicine Work Phone: Comment on above: PATIENT WAS FASTINGP ERFORMED BY: [address] [id number] Information: [id number] MCHC mass conc (RBC) 32.4 g/dL Normal 31.5-35.7 [facility] Internal Medicine Work Phone: Comment on above: PATIENT WAS FASTINGP ERFORMED BY: [place] 5826070 [facility] [id number] Information: 035649,[id number] MCV Entitic volume (RBC) 93 fL Normal 79-97 [facility] Work Phone: Comment on above: PATIENT WAS FASTINGP ERFORMED BY: [place] 5826070 [facility] [id number] Information: 803132,[id number] Monocytes #/vol (Bld) 0.6 {x10E3/uL} Normal 0.1-0.9 [facility] Work Phone: Comment on above: PATIENT WAS FASTINGP ERFORMED BY: [address] [id number] Information: [id number] Monocytes/100 WBC (Bld) 7 % Normal 4-12 [facility] Work Phone: Comment on above: PATIENT WAS FASTINGP ERFORMED BY: [address] [id number] Information: [id number] Neutrophils #/vol (Bld) 5.9 {x10E3/uL} Normal 1.4-7.0 [facility] Work Phone: Comment on above: PATIENT WAS FASTINGP ERFORMED BY: [address] [id number] Information: [id number],G48609 Neutrophils/100 WBC (Bld) 74 % Normal 40-74 [facility] Work Phone: Comment on above: PATIENT WAS FASTINGP ERFORMED BY: [address] [id number] Information: [id number] Platelets #/vol (Bld) 225 {x10E3/uL} Normal 155-379 [facility] Work Phone: Comment on above: PATIENT WAS FASTINGP ERFORMED BY: [address] [id number] Information: [id number] RBC #/vol (Bld) 4.38 {x10E6/uL} Normal 3.77-5.28 Comp [facility] Internal Medicine Work Phone: Comment on above: PATIENT WAS FASTINGP ERFORMED BY: ORTIZ Nilda Chester6370 [facility] [id number] Information: [id number] WBC #/vol (Bld) 8.0 {x10E3/uL} Normal 3.4-10.8 [facility] Internal Medicine Work Phone: Comment on above: PATIENT WAS FASTINGP ERFORMED BY: ORTIZ Nilda Chester6370 [facility] [id number] Information: 412489,V22976 LIPID PANEL (17402)Ordered B y: Peer Tutor on 12-01-2013 Cholesterol in HDL mass conc 47 mg/dL Normal [facility] Work Phone: Comment on above: According to ATP-III Guidelines, HDL-C >59 mg/dL is considered anegative risk factor for CHD. PATIENT WAS FASTINGP ERFORMED BY: ORTIZ Nilda Chester6370 [facility] [id number] Cholesterol in LDL mass conc 50 mg/dL Normal 0-99 [facility] Work Phone: Comment on above: PATIENT WAS FASTINGP ERFORMED BY: ORTIZ Nilda Chester6370 [facility] [id number] Cholesterol in LDL/Cholesterol in HDL mass ratio 1.1 {ratio_units} Normal 0.0-3.2 [facility] Work Phone: Comment on above: PATIENT WAS FASTINGP ERFORMED BY: ORTIZ Nilda Crowelin6370 [facility] [id number] Cholesterol in VLDL mass conc 35 mg/dL Normal 5-40 [facility] Work Phone: Comment on above: PATIENT WAS FASTINGP ERFORMED BY: ORTIZ Nilda Crowelin6370 [facility] [id number] Cholesterol mass conc 132 mg/dL Normal 100-199 [facility] Internal Medicine Work Phone: Comment on above: PATIENT WAS FASTINGP ERFORMED BY: ORTIZ Nilda Crowelin6370 [facility] [id number] Triglyceride mass conc 177 mg/dL Abnormal 0-149 Co mprehensive Internal Medicine Work Phone: Comment on above: PATIENT WAS FASTINGP ERFORMED BY: [facility]6370 [facility] [id number] Lab Report: Ordered by Dr. Saritha delgado 12-01-2013 Alanine aminotransferase (ALT) 10 U/L Invalid Interpretation Code [facility] Work Phone: Alkaline phosphatase (ALP) 76 U/L Invalid Interpretation Code [facility] Work Phone: Aspartate aminotransferase (AST) 13 U/L Invalid Interpretation Code [facility] Work Phone: METABOLIC PANEL, COMPREHENSI VE (57453)Ordered By: Peer Tutor on 12-01-2013 Albumin mass conc 4.5 g/dL Normal 3.5-4.8 Compreh [facility] Internal Medicine Work Phone: Comment on above: PATIENT WAS FASTINGP ERFORMED BY: [facility]6370 [facility] [id number] Albumin/Globulin mass ratio 2.1 {ratio} Normal 1.1-2.5 [facility] Internal Medicine Work Phone: Comment on above: PATIENT WAS FASTINGP ERFORMED BY: [facility]6370 [facility] [id number] ALP enzyme act/vol 76 [iU]/L Normal 39-117 [facility] Internal Medicine Work Phone: Comment on above: PATIENT WAS FASTINGP ERFORMED BY: [facility]6370 [facility] [id number] ALT enzyme act/vol 10 [iU]/L Normal 0-32 [facility] Internal Medicine Work Phone: Comment on above: PATIENT WAS FASTINGP ERFORMED BY: [facility]6370 [facility] [id number] AST enzyme act/vol 13 [iU]/L Normal 0-40 [facility] Internal Medicine Work Phone: Comment on above: PATIENT WAS FASTINGP ERFORMED BY: ORTIZ [facility] Jmypvb7029 Rodriguez RoadDublin [place] [id number] Bilirubin mass conc 0.3 mg/dL Normal 0.0-1.2 Compr ensive Internal Medicine Work Phone: Comment on above: PATIENT WAS FASTINGP ERFORMED BY: ORTIZ [facility] Pxiuki2649 Rodriguez RoadDublin [place] [id number] Calcium mass conc 9.9 mg/dL Normal 8.6-10.2 Compreh ensive Internal Medicine Work Phone: Comment on above: PATIENT WAS FASTINGP ERFORMED BY: CB [facility] Ytvhcf1435 Rodriguez RoadAsheville Specialty Hospitalin [place] [id number] Chloride molar conc 101 mmol/L Normal 97-108 Compr ensive Internal Medicine Work Phone: Comment on above: PATIENT WAS FASTINGP ERFORMED BY: ORTIZ [facility] Ifgelp6160 [address] RoadAsheville Specialty Hospitalin [place] [id number] CO2 molar conc 27 mmol/L Normal 19-28 Comprehens trupti Internal Medicine Work Phone: Comment on above: PATIENT WAS FASTINGP ERFORMED BY: ORTIZ [facility] Qjymat3521 Rodriguez RoadAsheville Specialty Hospitalin [place] [id number] Creatinine mass conc 0.97 mg/dL Normal 0.57-1.00 Comp [facility] Work Phone: Comment on above: PATIENT WAS FASTINGP ERFORMED BY: ORTIZ [facility] Stduzn6973 [address] [facility]in [place] [id number] GFR/1.73 sq M predicted among blacks CKD-EPI vol rate/area (S/P/Bld) 67 mL/min/1.73 Normal [facility] Work Phone: Comment on above: PATIENT WAS FASTINGP ERFORMED BY: CB [facility] Peztmv5984 Rodriguez Roadblin [place] [id number] GFR/1.73 sq M predicted among non-blacks CKD-EPI vol rate/area (S/P/Bld) 58 mL/min/1.73 Abnormal Comprehensiv e Internal Medicine Work Phone: Comment on above: PATIENT WAS FASTINGP ERFORMED BY: ORTIZ [facility] Wmmxiq7657 [address] RoadDublin [place] [id number] Globulin mass conc (S) 2.1 g/dL Normal 1.5-4.5 [facility] Work Phone: Comment on above: PATIENT WAS FASTINGP ERFORMED BY: ORTIZ [facility] Zczhgc7915 Rodriguez RoadDublin [place] [id number] Glucose mass conc 99 mg/dL Normal 65-99 Compreh ensive Internal Medicine Work Phone: Comment on above: PATIENT WAS FASTINGP ERFORMED BY: ORTIZ [facility] Wyocxy0800 Rodriguez RoadDublin [place] [id number] Potassium molar conc 4.9 mmol/L Normal 3.5-5.2 [facility] Work Phone: Comment on above: PATIENT WAS FASTINGP ERFORMED BY: ORTIZ [facility] Gsqhyb8282 Rodriguez RoadDublin [place] [id number] Protein mass conc 6.6 g/dL Normal 6.0-8.5 Compreh ensive [facility] Medicine Work Phone: Comment on above: PATIENT WAS FASTINGP ERFORMED BY: ORTIZ [facility] Lkdfgk3984 Rodriguez RoadDublin [place] [id number] Sodium molar conc 141 mmol/L Normal 134-144 Compreh ensive [facility] Medicine Work Phone: Comment on above: PATIENT WAS FASTINGP ERFORMED BY: ORTIZ [facility] Krjoqk5532 [address] RoadDublin [place] [id number] Urea nitrogen mass conc 21 mg/dL Normal 8-27 [facility] Work Phone: Comment on above: PATIENT WAS FASTINGP ERFORMED BY: ORTIZ [facility] Glqzwg5799 [address] RoadDublin [place] [id number] Urea nitrogen/Creatinine mass ratio 22 mg/mg Normal 11-26 [facility] Work Phone: Comment on above: PATIENT WAS FASTINGP ERFORMED BY: ORTIZ [facility] Jkjrwa7137 [address] RoadDublin [place] [id number] TSH ([id number])Ordered By: Syste m Inspector And Clipper on 12-01-2013 Thyrotropin Qn 1.040 {uIU/mL} Normal 0.450-4.50 0 [facility] Work Phone: Comment on above: PATIENT WAS FASTINGP ERFORMED BY: ORTIZ [facility] Liqsom4945 [facility] [id number] URINE IBRAHIMA CULTURE (TY COL COUNT) ([id number])Ordered By: Peer Tutor on 12-01-2013 Bacteria identified Cx Nom (U) Escherichia coli Normal [facility] Work Phone: Comment on above: Greater than 100,000 colony forming units per mL PATIENT NOT FASTINGP ERFORMED BY: ORTIZ [facility] Mioiya1853 [facility] [id number] Information: SRC:UR [id number] Bacteria identified Cx Nom (U) Final report Normal [facility] Work Phone: Comment on above: PATIENT NOT FASTINGP ERFORMED BY: ORTIZ [facility] Bungdw5914 [facility] [id number] Information: SRC:UR E77291 Other Antibiotic [facility] prehensive Internal Medicine Work Phone: Comment on above: S = Susceptibl e; I = Intermediate; R = Resistant P = Positive; N = Negative MICS are expressed in micrograms per mL Antibiotic RSLT#1 RSLT#2 RSLT#3 RSLT#4Amoxicillin/Clavulanic Acid SAmpicillin SCefepime SCeftriaxone SCefuroxime SCephalothin SCiprofloxacin SErtapenem SGentamicin SImipenem SLevofloxacin SNitrofurantoin SPiperacillin STetracycline STobramycin STrimethoprim/Sulfa S PATIENT NOT FASTINGP ERFORMED BY: ORTIZ [facility] Yenjqi1333 [facility] [id number] Information: SRC:UR I49897 Urinalysis, Office (08272)Or dered By: Jacinta Patel on 12-01-2013 Bilirubin [...] Internal Medicine Work Phone: Vitamin D Hydroxy (11574)Ord ered By: Peer Tutor on 12-01-2013 25-Hydroxyvitamin D2+25-Hydroxyvitamin D3 mass conc 38.9 ng/mL Normal 30.0-100.0 [facility] Work Phone: Comment on above: Vitamin D deficiency has been defined by the [place] of[place]icine and an Endocrine Society practice guideline as alevel of serum 25-OH vitamin D less than 20 ng/mL (1,2).The Endocrine Society went on to further define vitamin Dinsufficiency as a level between 21 and 29 ng/mL (2).1. IOM ([place] of Medicine). 2010. Dietary reference intakes for calcium and D. [place]: The National Academies Press.2. Allie MF, Emile [place], Natalie POOLE, et al. Evaluation, treatment, and prevention of vitamin D deficiency: an Endocrine Society clinical practice guideline. JCEM. 2010; 96(7):1911-30. PATIENT WAS FASTINGP ERFORMED BY: [facility] Koppjb0832 [facility] [id number] Lab Report: PTon 04-19-2013 INR in blood by coagulation 1.0 {INR} Normal [facility] Work Phone: prothrombin time, actual/normal, ratio 12.8 SECONDS Normal 11.9-14.4 [facility] Work Phone: Lab Report: PTTon 04-19-2013 aPTT 29.8 s Normal 24.1-36.2 [facility] Work Phone: Replaced Document: Escobar Parra CG Observationson 04-19-2013 Pulse (Heart Rate) 421 ms Invalid Interpretation Code [facility] Work Phone: URINE IBRAHIMA CULTURE-TY COL C OUNT (14769)Ordered By: Peer Tutor on 04-18-2013 Bacteria identified Cx Nom (U) Final report Normal [facility] Work Phone: Comment on above: PATIENT NOT FASTINGP ERFORMED BY: Integene InternationalHighlands-Cashiers [facility] [id number] Information: SRC:UR [id number] Bacteria identified Cx Nom (U) NG36 Normal [facility] Work Phone: Comment on above: No growth in 36 - 48 hours. PATIENT NOT FASTINGP ERFORMED BY: [employer] [place] [id number] Information: SRC:UR P38783 Urinalysis, Office (13850)Or dered By: Jacinta Patel on 04-15-2013 Bilirubin [...] Phone: URINE IBRAHIMA CULTURE (TY COL COUNT) (62709)Ordered By: Peer Tutor on 09-30-2012 Bacteria identified Cx Nom (U) Escherichia coli Normal [facility] Work Phone: Comment on above: Greater than 100,000 colony forming units per mL PATIENT NOT FASTINGP ERFORMED BY: Familiar [facility]errp Addvsh1557 [address] [employer] [id number] Information: SRC:UR S31069 Bacteria identified Cx Nom (U) Final report Normal [facility] Work Phone: Comment on above: PATIENT NOT FASTINGP ERFORMED BY: Familiar [facility]Qu[facility] Centerrp Lqnzca7901 [address] [employer])DuHigh[facility] [id number] Information: SRC:UR U33588 Other Antibiotic [facility] prehensive Internal Medicine Work Phone: Comment on above: S = Susceptibl e; I = Intermediate; R = Resistant P = Positive; N = Negative MICS are expressed in micrograms per mL Antibiotic RSLT#1 RSLT#2 RSLT#3 RSLT#4Amoxicillin/Clavulanic Acid SAmpicillin SCefazolin SCefepime SCeftriaxone SCefuroxime SCephalothin SCiprofloxacin SESBL NErtapenem SGentamicin SImipenem SLevofloxacin SNitrofurantoin SPiperacillin STetracycline STobramycin STrimethoprim/Sulfa S PATIENT NOT FASTINGP ERFORMED BY: ORTIZ [facility] Tryokl2213 [facility] [id number] Information: SRC:UR M15351 Urinalysis, Office (08271)Or dered By: Alyson Dixon on 09-30-2012 Bilirubin [...] Albumin/Globulin Ratio 1.1 {ratio} Invalid Interpretation Code [facility] Work Phone: Protein 6.7 g/dL Invalid Interpretation Code [facility] Work Phone: Alkaline Phosphatase (70828) Ordered By: Peer Tutor on 02-25-2012 ALP enzyme act/vol 67 [iU]/L Normal 25-165 Compre hensive Internal Medicine Work Phone: Comment on above: PATIENT NOT FASTINGP ERFORMED BY: ORTIZ [facility] Zzpfio7474 [facility] [id number] CALCIFIDIOL (76620) VIT D 25 Ordered By: Peer Tutor on 02-25-2012 25-Hydroxyvitamin D2+25-Hydroxyvitamin D3 mass conc 45.8 ng/mL Normal 30.0-100.0 [facility] Work Phone: Comment on above: Vitamin D deficiency has been defined by the [place] of[place]icine and an Endocrine Society practice guideline as alevel of serum 25-OH vitamin D less than 20 ng/mL (1,2).The Endocrine Society went on to further define vitamin Dinsufficiency as a level between 21 and 29 ng/mL (2).1. IOM ([place] of Medicine). 2010. Dietary reference intakes for calcium and D. [place]: The National Academies Press.2. Allie MF, Emile [place], Natalie POOLE, et al. Evaluation, treatment, and prevention of vitamin D deficiency: an Endocrine Society clinical practice guideline. JCEM. 2010; 96(7):1911-30. PATIENT NOT FASTINGP ERFORMED BY: ORTIZ [employer]6370 Tal[employer] NetworksHighlands-Cashiers Hospital [id number] Information: [id number] Calcium Serum (93573)Ordered By: Peer Tutor on 02-25-2012 Calcium mass conc 9.3 mg/dL Normal 8.6-10.2 Compreh ensive Internal Medicine Work Phone: Comment on above: PATIENT NOT FASTINGP ERFORMED BY: ORTIZ MygeniAleksandr Iqxyhb5626 Talari NetworksHighlands-Cashiers Hospital [id number] Clinical Lists Update: Prelo laborer general 02-16-2012 [facility] 34.6 % Invalid Interpretation Code [facility] Work Phone: CBC (AUTO) (05484)Ordered By : Peer Tutor on 10-14-2010 Erythrocyte distribution width Ratio (RBC) 13.5 % Normal 11.7-15.0 [facility] Work Phone: Comment on above: PATIENT NOT FASTINGP ERFORMED BY: ORTIZ [employer]6370 Talari NetworksHighlands-Cashiers Hospital [id number] Hematocrit Volume Fraction (Bld) 40.4 % Normal 34.0-44.0 [facility] Work Phone: Comment on above: PATIENT NOT FASTINGP ERFORMED BY: ORTIZ [facility] Mqlgsx7504 [address] [facility] [id number] Hemoglobin mass conc (Bld) 13.7 g/dL Normal 11.5-15.0 [facility] Internal Medicine Work Phone: Comment on above: PATIENT NOT FASTINGP ERFORMED BY: ORTIZ [facility] Zvafpu3715 [address] [facility] [id number] MCH Entitic mass (RBC) 29.5 pg Normal 27.0-34.0 Co [facility] Internal Medicine Work Phone: Comment on above: PATIENT NOT FASTINGP ERFORMED BY: ORTIZ [facility] Oviyox3510 Rodriguez RoadAtrium Health [facility] [id number] MCHC mass conc (RBC) 33.9 g/dL Normal 32.0-36.0 [facility] Internal Medicine Work Phone: Comment on above: PATIENT NOT FASTINGP ERFORMED BY: ORTIZ [facility] Olufbw2653 [facility] [id number] MCV Entitic volume (RBC) 87 fL Normal 80-98 [facility] Internal Medicine Work Phone: Comment on above: PATIENT NOT FASTINGP ERFORMED BY: ORTIZ [facility] Pwcust4326 [facility] [id number] Platelets #/vol (Bld) 280 {x10E3/uL} Normal 140-415 [facility] Internal Medicine Work Phone: Comment on above: PATIENT NOT FASTINGP ERFORMED BY: [facility] Vrowxi1423 [address] [facility] [id number] RBC #/vol (Bld) 4.64 {x10E6/uL} Normal 3.80-5.10 [facility] Internal Medicine Work Phone: Comment on above: PATIENT NOT FASTINGP ERFORMED BY: CB [facility] Wmkvqt9669 [address] [facility] [id number] WBC #/vol (Bld) 6.2 {x10E3/uL} Normal 4.0-10.5 [facility] Internal Medicine Work Phone: Comment on above: PATIENT NOT FASTINGP ERFORMED BY: CB [facility] Zgyzaa1908 [address] [facility]in [place] [id number] METABOLIC PANEL, COMPREHENSI VE (64926)Ordered By: Peer Tutor on 10-14-2010 Albumin mass conc 4.4 g/dL Normal 3.5-4.8 Compreh [facility] Internal Medicine Work Phone: Comment on above: PATIENT NOT FASTINGP ERFORMED BY: CB [facility] Fwczml0500 [address] [facility] [id number] Information: 655605,[id number] Albumin/Globulin mass ratio 1.8 {ratio} Normal 1.1-2.5 [facility] Internal Medicine Work Phone: Comment on above: PATIENT NOT FASTINGP ERFORMED BY: CB [facility] Pphoxi7510 [address] [facility] [id number] Information: [id number],[id number] ALP enzyme act/vol 84 [iU]/L Normal 25-165 [facility] Internal Medicine Work Phone: Comment on above: PATIENT NOT FASTINGP ERFORMED BY: CB [facility] Bsdnmq9974 [address] [facility] [id number] Information: [id number],[id number] ALT enzyme act/vol 13 [iU]/L Normal 0-40 [facility] Internal Medicine Work Phone: Comment on above: PATIENT NOT FASTINGP ERFORMED BY: CB [facility] Olsgmo8209 [address] [facility] [id number] Information: 260750,H38038 AST enzyme act/vol 13 [iU]/L Normal 0-40 [facility] Internal Medicine Work Phone: Comment on above: PATIENT NOT FASTINGP ERFORMED BY: CB [facility] Cvwspp5587 [address] [facility] [id number] Information: 493006,[id number] Bilirubin mass conc 0.2 mg/dL Normal 0.0-1.2 [facility] Internal Medicine Work Phone: Comment on above: PATIENT NOT FASTINGP ERFORMED BY: CB [facility] Iwilhu8949 [address] [facility] [place] [id number] Information: 404348,C50771 Calcium mass conc 10.4 mg/dL Abnormal 8.6-10.2 Compreh ensive Internal Medicine Work Phone: Comment on above: PATIENT NOT FASTINGP ERFORMED BY: ORTIZ RobledoCoaustyn CroweBhmvaz3644 [facility] [id number] Information: 624446,D85162 Chloride molar conc 101 mmol/L Normal 97-108 Compr ehensive Internal Medicine Work Phone: Comment on above: PATIENT NOT FASTINGP ERFORMED BY: CB [facility] Dywbto4093 [facility] [id number] Information: 522863,U70007 CO2 molar conc 28 mmol/L Normal 20-32 Comprehens trupti Internal Medicine Work Phone: Comment on above: PATIENT NOT FASTINGP ERFORMED BY: ORTIZ [facility] Dibbgp1707 [facility] [id number] Information: 095405,Q40964 Creatinine mass conc 0.70 mg/dL Normal 0.57-1.00 Comp rehensive Internal Medicine Work Phone: Comment on above: PATIENT NOT FASTINGP ERFORMED BY: ORTIZ [facility] Zavsjs0513 [facility] [id number] Information: 878105,[id number] GFR/1.73 sq M predicted among blacks MDRD [...] [email or web address]. PATIENT NOT FASTINGP ERFORMED BY: [facility] Fzvlgm6653 [facility] [id number] Information: 356244,Q04360 GFR/1.73 sq M.predicted MDRD (S/P/Bld) [Vol rate/Area] mL/min/{1.73_m2} Normal [facility] Work Phone: Comment on above: PATIENT NOT FASTINGP ERFORMED BY: CB [facility] Rcslzq2939 Rodriguez RoadAsheville Specialty Hospitalin [place] [id number] Information: 917446,D96715 GFR/1.73 sq M.predicted MDRD vol rate/area mL/min/{1.73_m2} Normal [facility] Work Phone: Comment on above: PATIENT NOT FASTINGP ERFORMED BY: CB [facility] Tiosny7289 [address] [facility] [id number] Information: 001255,[id number] Globulin mass conc (S) 2.5 g/dL Normal 1.5-4.5 [facility] Work Phone: Comment on above: PATIENT NOT FASTINGP ERFORMED BY: CB [facility] Hpzowd3313 [address] [facility] [id number] Information: 360255,S88835 Glucose mass conc 88 mg/dL Normal 65-99 Compreh ensive Internal Medicine Work Phone: Comment on above: PATIENT NOT FASTINGP ERFORMED BY: CB [facility] Nvuffy0697 [address] [facility] [id number] Information: 198891,[id number] Potassium molar conc 4.6 mmol/L Normal 3.5-5.2 Comp [facility] Work Phone: Comment on above: PATIENT NOT FASTINGP ERFORMED BY: CB [facility] Kdjdye2715 [address] [facility] [id number] Information: 551350,L51812 Protein mass conc 6.9 g/dL Normal 6.0-8.5 Compreh ensive Internal Medicine Work Phone: Comment on above: PATIENT NOT FASTINGP ERFORMED BY: CB [facility] Bjhpll1992 [address] [facility] [id number] Information: 786129,R41621 Sodium molar conc 140 mmol/L Normal 135-145 Compreh ensive Internal Medicine Work Phone: Comment on above: PATIENT NOT FASTINGP ERFORMED BY: ORTIZ Nilda Dgjyuk9491 [address] [facility] [place] [id number] Information: 296362,X13539 Urea nitrogen mass conc 9 mg/dL Normal 8-27 [facility] Work Phone: Comment on above: PATIENT NOT FASTINGP ERFORMED BY: ORTIZ [facility] Eksksb5018 [address] [facility] [id number] Information: 286512,[id number] Urea nitrogen/Creatinine mass ratio 13 mg/mg Normal 11- [facility] Work Phone: Comment on above: PATIENT NOT FASTINGP ERFORMED BY: ORTIZ Ameyaaustyn CroweVeirlo9668 [facility] [id number] Information: 531252,[id number] TSH (64713)Ordered By: Syste m Inspector And Clipper on 10-14-2010 Thyrotropin Qn 1.320 {uIU/mL} Normal 0.450-4.50 0 [facility] Work Phone: Comment on above: PATIENT NOT FASTINGP ERFORMED BY: ORTIZ LabCoaustyn CroweTiltcy1499 [address] [facility] [id number] URINALYSIS W/O MICRO (27085) Ordered By: Peer Tutor on 10-14-2010 Appearance Nom (U) Clear Normal Compre hensive Internal Medicine Work Phone: Comment on above: PATIENT NOT FASTINGP ERFORMED BY: ORTIZ [facility] Qeomxf3691 [address] [facility] [place] [id number] Bilirubin Ql (U) Negative Normal Comprehe nsive Internal Medicine Work Phone: Comment on above: PATIENT NOT FASTINGP ERFORMED BY: ORTIZ [facility] Luolms9176 [address] [facility] [place] [id number] Color Nom (U) Yellow Normal Comprehensi ve Internal Medicine Work Phone: Comment on above: PATIENT NOT FASTINGP ERFORMED BY: ORTIZ Nilda Fitcay4634 [address] [facility] [id number] Glucose Ql (U) Negative Normal Comprehens trupti Internal Medicine Work Phone: Comment on above: PATIENT NOT FASTINGP ERFORMED BY: ORTZI Nilda Chester6370 [address] [facility] [id number] Hemoglobin Ql (U) Negative Normal Compreh ensive Internal Medicine Work Phone: Comment on above: PATIENT NOT FASTINGP ERFORMED BY: ORTIZ Crowelin6370 [address] [facility] [id number] Ketones Ql (U) Negative Normal Comprehens trupti Internal Medicine Work Phone: Comment on above: PATIENT NOT FASTINGP ERFORMED BY: ORTIZ MeenaAleksandr CroweRfqjkm0909 [facility] [id number] Leukocyte esterase Test strip Ql (U) Negative Normal [facility] Work Phone: Comment on above: PATIENT NOT FASTINGP ERFORMED BY: ORTIZ Crowelin6370 [facility] [id number] Microscopic observation LM Nom (Urine sed) MICRON Normal [facility] Work Phone: Comment on above: Microscopic follows if indicated. PATIENT NOT FASTINGP ERFORMED BY: ORTIZ Crowelin6370 [facility] [id number] Nitrite Ql (U) Negative Normal Comprehens trupti Internal Medicine Work Phone: Comment on above: PATIENT NOT FASTINGP ERFORMED BY: ORTIZ Crowelin6370 [facility] [id number] pH (U) 6.5 [pH] Normal 5.0-7.5 [facility] Work Phone: Comment on above: PATIENT NOT FASTINGP ERFORMED BY: ORTIZ MeenaAleksandr CroweHpgiup6353 [address] [facility] [id number] Protein Ql (U) Negative Normal Comprehens trupti Internal Medicine Work Phone: Comment on above: PATIENT NOT FASTINGP ERFORMED BY: ORTIZ Crowelin6370 [facility] [id number] Specific gravity Relative Density (U) 1.020 1 Normal 1.005-1.03 0 [facility] Work Phone: Comment on above: PATIENT NOT FASTINGP ERFORMED BY: ORTIZ Chester6370 [address] [facility] [place] [id number] Urobilinogen Test strip mass conc (U) 0.2 mg/dL Normal 0.0-1.9 Comprehensiv e Internal Medicine Work Phone: Comment on above: PATIENT NOT FASTINGP ERFORMED BY: ORTIZ [facility] Xavtwp3684 [address] [facility] [place] [id number] VITAMIN B-12 (CYANOCOBALAMIN ) (85790)Ordered By: Peer Tutor on 10-14-2010 Cobalamin (Vitamin B12) mass conc 246 pg/mL Normal 211-946 [facility] Work Phone: Comment on above: PATIENT NOT FASTINGP ERFORMED BY: ORTIZ Hou Nxungs7757 [facility] [id number] LIPID PANEL (97259)Ordered B y: Peer Tutor on 12-14-2009 Cholesterol in HDL mass conc 54 mg/dL Normal [facility] Work Phone: Comment on above: According to ATP-III Guidelines, HDL-C >59 mg/dL is considered anegative risk factor for CHD. PATIENT WAS FASTINGP ERFORMED BY: ORTIZ [facility] Vbskal0709 [facility] [id number] Information: 192544,[id number] Cholesterol in LDL mass conc 111 mg/dL Abnormal 0-99 [facility] Work Phone: Comment on above: PATIENT WAS FASTINGP ERFORMED BY: [facility] Jnzdkr3242 [facility] [id number] Information: 189621,W36560 Cholesterol in LDL/Cholesterol in HDL mass ratio 2.1 {ratio_units} Normal 0.0-3.2 [facility] Work Phone: Comment on above: PATIENT WAS FASTINGP ERFORMED BY: [facility] Bqpoba8723 [address] [facility] [id number] Information: 862821,[id number] Cholesterol in VLDL mass conc 21 mg/dL Normal 5-40 [facility] Work Phone: Comment on above: PATIENT WAS FASTINGP ERFORMED BY: ORTIZ [facility]6370 [facility] [id number] Information: 879715,[id number] Cholesterol mass conc 186 mg/dL Normal 100-199 Com prehensive Internal Medicine Work Phone: Comment on above: PATIENT WAS FASTINGP ERFORMED BY: LabCoSaint [facility] Medical CenterHvshbj8458 [facility] [id number] Information: 674485,P51741 Triglyceride mass conc 103 mg/dL Normal 0-149 [facility] Work Phone: Comment on above: PATIENT WAS FASTINGP ERFORMED BY: [place] 5826070 [facility] [id number] Information: 610449,[id number] TSH (73270)Ordered By: Syste m Inspector And Clipper on 12-14-2009 Thyrotropin Qn 1.680 {uIU/mL} Normal 0.450-4.50 0 [facility] Work Phone: Comment on above: PATIENT WAS FASTINGP ERFORMED BY: [facility]6370 [facility] [id number] CBC WITH MANUAL DIFF (46801) Ordered By: Peer Tutor on 12-13-2009 Basophils #/vol (Bld) 0.0 {x10E3/uL} Normal 0.0-0.2 [facility] Work Phone: Comment on above: PATIENT NOT FASTINGP ERFORMED BY: [facility] Kflnza5973 [facility] [id number] Information: 647259,L36464 Basophils/100 WBC (Bld) 0 % Normal 0-3 [facility] Work Phone: Comment on above: PATIENT NOT FASTINGP ERFORMED BY: [facility]6370 [facility] [id number] Information: 620756,G21455 Eosinophils #/vol (Bld) 0.0 {x10E3/uL} Normal 0.0-0.4 [facility] Work Phone: Comment on above: PATIENT NOT FASTINGP ERFORMED BY: ORTIZ [facility] Nsiyyo2571 [facility] [id number] Information: 430678,U93790 Eosinophils/100 WBC (Bld) 0 % Normal 0-7 [facility] Work Phone: Comment on above: PATIENT NOT FASTINGP ERFORMED BY: LabCoJoshua Ville 0391470 [facility] [id number] Information: 484150,X57573 Erythrocyte distribution width Ratio (RBC) 13.9 % Normal 11.7-15.0 [facility] Work Phone: Comment on above: PATIENT NOT FASTINGP ERFORMED BY: LabSavannah [place] 5930970 [facility] [id number] Information: 426225,G75483 Hematocrit Volume Fraction (Bld) 38.9 % Normal 34.0-44.0 [facility] Work Phone: Comment on above: PATIENT NOT FASTINGP ERFORMED BY: LabCoSaint Francis Medical CenterZlhczm7759 [facility] [id number] Information: 889329,R59373 Hemoglobin mass conc (Bld) 13.7 g/dL Normal 11.5-15.0 [facility] Work Phone: Comment on above: PATIENT NOT FASTINGP ERFORMED BY: [facility] Bycsfg8878 [facility] [id number] Information: 145954,[id number] Lymphocytes #/vol (Bld) 1.3 {x10E3/uL} Normal 0.7-4.5 [facility] Work Phone: Comment on above: PATIENT NOT FASTINGP ERFORMED BY: LabCoSaint Francis Medical CenterArpeyo7264 [facility] [id number] Information: [id number] Lymphocytes/100 WBC (Bld) 20 % Normal 14-46 [facility] Work Phone: Comment on above: PATIENT NOT FASTINGP ERFORMED BY: ORTIZ Hou Hxgyun4271 [facility] [id number] Information: 618217,[id number] MCH Entitic mass (RBC) 31.3 pg Normal 27.0-34.0 [place] [facility] Work Phone: Comment on above: PATIENT NOT FASTINGP ERFORMED BY: ORTIZ [address] [id number] Information: [id number] MCHC mass conc (RBC) 35.2 g/dL Normal 32.0-36.0 [facility] Internal Medicine Work Phone: Comment on above: PATIENT NOT FASTINGP ERFORMED BY: [address] [id number] Information: [id number] MCV Entitic volume (RBC) 89 fL Normal 80-98 [facility] Internal Medicine Work Phone: Comment on above: PATIENT NOT FASTINGP ERFORMED BY: ORTIZ Robledo[address] [id number] Information: [id number] Monocytes #/vol (Bld) 0.4 {x10E3/uL} Normal 0.1-1.0 [facility] Work Phone: Comment on above: PATIENT NOT FASTINGP ERFORMED BY: [place] [id number] [facility] [id number] Information: [id number] Monocytes/100 WBC (Bld) 6 % Normal 4-13 [facility] Work Phone: Comment on above: PATIENT NOT FASTINGP ERFORMED BY: [place] [id number] [facility] [id number] Information: [id number] Neutrophils #/vol (Bld) 5.0 {x10E3/uL} Normal 1.8-7.8 [facility] Work Phone: Comment on above: PATIENT NOT FASTINGP ERFORMED BY: ORTIZ Chester6370 [facility] [id number] Information: [id number] Neutrophils/100 WBC (Bld) 74 % Normal 40-74 [facility] Work Phone: Comment on above: PATIENT NOT FASTINGP ERFORMED BY: ORTIZ RobledoCo Ejssig6589 [facility] [id number] Information: [id number] Platelets #/vol (Bld) 228 {x10E3/uL} Normal 140-415 [facility] Work Phone: Comment on above: PATIENT NOT FASTINGP ERFORMED BY: ORTIZ Hou Kgsask1763 [facility] [id number] Information: [id number] RBC #/vol (Bld) 4.38 {x10E6/uL} Normal 3.80-5.10 [facility] Internal Medicine Work Phone: Comment on above: PATIENT NOT FASTINGP ERFORMED BY: ORTIZ Hou [place]5120 [facility] [id number] Information: [id number] WBC #/vol (Bld) 6.7 {x10E3/uL} Normal 4.0-10.5 [facility] Internal Medicine Work Phone: Comment on above: PATIENT NOT FASTINGP ERFORMED BY: ORTIZ [facility] Cmdkea9447 [facility] [id number] Information: [id number] METABOLIC PANEL, COMPREHENSI VE ([id number])Ordered By: Peer Tutor on 12-13-2009 Albumin mass conc 4.1 g/dL Normal 3.5-4.8 Compre[facility] Internal Medicine Work Phone: Comment on above: PATIENT NOT FASTINGP ERFORMED BY: ORTIZ [facility] Rtutoa4737 [facility] [id number] Albumin/Globulin mass ratio 1.7 {ratio} Normal 1.1-2.5 [facility] Work Phone: Comment on above: PATIENT NOT FASTINGP ERFORMED BY: ORTIZ LabAleksandr Chester6370 [address] [facility] [place] [id number] ALP enzyme act/vol 82 [iU]/L Normal 25-165 [facility] Work Phone: Comment on above: PATIENT NOT FASTINGP ERFORMED BY: ORTIZ LabCoaustyn CroweTiwkhx1328 [facility] [place] [id number] ALT enzyme act/vol 12 [iU]/L Normal 0-40 [facility] Internal Medicine Work Phone: Comment on above: PATIENT NOT FASTINGP ERFORMED BY: ORTIZ LabCoaustyn CroweIcxgoy5301 [facility] [place] [id number] AST enzyme act/vol 19 [iU]/L Normal 0-40 [facility] Internal Medicine Work Phone: Comment on above: PATIENT NOT FASTINGP ERFORMED BY: ORTIZ Nilda Ydwjvy1401 [facility] [id number] Bilirubin mass conc 0.2 mg/dL Normal 0.1-1.2 Compr [email or web address] Internal Medicine Work Phone: Comment on above: PATIENT NOT FASTINGP ERFORMED BY: ORTIZ Nilda Xorhxo7835 [facility] [id number] Calcium mass conc 9.6 mg/dL Normal 8.6-10.2 Compreh ensive Internal Medicine Work Phone: Comment on above: PATIENT NOT FASTINGP ERFORMED BY: ORTIZ [facility] Kpfyri0995 [facility] [place] [id number] Chloride molar conc 104 mmol/L Normal 97-108 Compr ensive Internal Medicine Work Phone: Comment on above: PATIENT NOT FASTINGP ERFORMED BY: ORTIZ [facility] [id number] [facility] [place] [id number] CO2 molar conc 25 mmol/L Normal 20-32 Comprehens trupti Internal Medicine Work Phone: Comment on above: PATIENT NOT FASTINGP ERFORMED BY: ORTIZ [facility] Ykjvgh7428 [facility] [id number] Creatinine mass conc 0.71 mg/dL Normal 0.57-1.00 [facility] Work Phone: Comment on above: PATIENT NOT FASTINGP ERFORMED BY: ORTIZ [facility] Hxlrwy0743 [facility] [id number] GFR/1.73 sq M predicted among blacks MDRD vol rate/area (S/P/Bld) mL/min/{1.73_m2} Normal [facility] Work Phone: Comment on above: Note: Persistent red uction for 3 months or more in an eGFR<60 mL/min/1.73 m2 defines CKD. Patients with eGFR values>/=60 mL/min/1.73 m2 may also have CKD if evidence of persistentproteinuria is present. Additional information may be found [email or web address]. PATIENT NOT FASTINGP ERFORMED BY: ORTIZ [facility] Lruhvk4252 [facility] [id number] GFR/1.73 sq M.predicted MDRD (S/P/Bld) [Vol rate/Area] mL/min/{1.73_m2} Normal [facility] Work Phone: Comment on above: PATIENT NOT FASTINGP ERFORMED BY: ORTIZ [facility] Bydumj5021 [facility] [id number] GFR/1.73 sq M.predicted MDRD vol rate/area mL/min/{1.73_m2} Normal [facility] Work Phone: Comment on above: PATIENT NOT FASTINGP ERFORMED BY: ORTIZ [facility] [id number] [facility] [id number] Globulin mass conc (S) 2.4 g/dL Normal 1.5-4.5 [facility] Work Phone: Comment on above: PATIENT NOT FASTINGP ERFORMED BY: ORTIZ [facility] Anrmmn3015 [facility] [id number] Glucose mass conc 89 mg/dL Normal 65-99 [facility]pre[facility] Internal Medicine Work Phone: Comment on above: PATIENT NOT FASTINGP ERFORMED BY: ORTIZ [facility] [id number] [facility] [id number] Potassium molar conc 5.0 mmol/L Normal 3.5-5.2 Comp rehensive Internal Medicine Work Phone: Comment on above: PATIENT NOT FASTINGP ERFORMED BY: ORTIZ [facility] Dazqgi0593 [facility] [id number] Protein mass conc 6.5 g/dL Normal 6.0-8.5 Compreh ensive Internal Medicine Work Phone: Comment on above: PATIENT NOT FASTINGP ERFORMED BY: ORTIZ [facility] Dtjwpf7041 [facility] [id number] Sodium molar conc 142 mmol/L Normal 135-145 Compreh ensive Internal Medicine Work Phone: Comment on above: PATIENT NOT FASTINGP ERFORMED BY: ORTIZ [facility] Rnslij4965 [facility] [id number] Urea nitrogen mass conc 10 mg/dL Normal 5-26 [facility] Work Phone: Comment on above: PATIENT NOT FASTINGP ERFORMED BY: ORTIZ [facility] Uijjkk6034 [facility] [id number] Urea nitrogen/Creatinine mass ratio 14 mg/mg Normal 8-27 [facility] Work Phone: Comment on above: PATIENT NOT FASTINGP ERFORMED BY: ORTIZ [facility] Uuuaul0116 [facility] [id number] Urinalysis, Office ([id number])Or dered By: Radha Velez on 09-21-2008 Bilirubin [...] Relative Density (U) 1.025 1 Normal Comprehensi Internal Medicine Work Phone: Comment on above: done km Urobilinogen mass/time (24H U) Normal Normal [facility] Work Phone: Comment on above: done km Culture, urine Bacteria identified Cx Nom (U) Escherichia coli [facility] Work Phone: Vital Signs Date Time Vital Sign Value Performing Clinician Facility 03-02-2025 18:29-0400 Body height 157.[address] Yesika Faust MD Work Phone: [facility] 05-05-2019 10:14-0400 BMI (Body Mass Index) 33.02 kg/m2 Mirella Mccracken [facility] Internal Medicine Work Phone: 05-05-2019 10:14-0400 Body weight 74.16 kg Mirella [facility] Internal Medicine Work Phone: 05-05-2019 10:14-0400 BP Diastolic 80 mm[Hg] Mirella [facility] Internal Medicine Work Phone: Comment on above: Patient Position: Sitting; Cuff Location : Left Arm; Cuff Size: Large 05-05-2019 10:14-0400 BP Systolic 138 mm[Hg] [facility] Internal Medicine Work Phone: Comment on above: Patient Position: Sitting; Cuff Location : Left Arm; Cuff Size: Large 05-05-2019 10:14-0400 BSA (Body Surface Area) 1.69 m2 [facility] Internal Medicine Work Phone: 05-05-2019 10:14-0400 Height 149.86 cm Mirella Mccracken [facility] Internal Medicine Work Phone: 05-05-2019 10:14-0400 Pulse (Heart Rate) 68 /min Mirella Mccracken [facility] Internal Medicine Work Phone: Comment on above: Pattern: Regular 05-05-2019 10:14-0400 Pulse Oximetry 95 % Mirella Mccracken [facility] Internal Medicine Work Phone: Comment on above: Room air 05-05-2019 10:14-0400 Respiratory Rate 18 /min Mirella Mccracken [facility] Internal Medicine Work Phone: Comment on above: Pattern: Unlabored 03-15-2019 09:59-0400 BMI (Body Mass Index) 33.4 kg/m2 Mirella Mccracken [facility] Internal Medicine Work Phone: 03-15-2019 09:59-0400 Body weight 75.01 kg Mirella Mccracken [facility] Internal Medicine Work Phone: 03-15-2019 09:59-0400 BP Diastolic 82 mm[Hg] Mirella Mccracken [facility] Internal Medicine Work Phone: Comment on above: Patient Position: Sitting; Cuff Location : Left Arm; Cuff Size: Large 03-15-2019 09:59-0400 BP Systolic 168 mm[Hg] Mirella Mccracken [facility] Internal Medicine Work Phone: Comment on above: Patient Position: Sitting; Cuff Location : Left Arm; Cuff Size: Large 03-15-2019 09:59-0400 BSA (Body Surface Area) 1.7 m2 Mirella Mccracken [facility] Internal Medicine Work Phone: 03-15-2019 09:59-0400 Height 149.86 cm Mirella Mccracken [facility] Internal Medicine Work Phone: 03-15-2019 09:59-0400 Pulse (Heart Rate) 88 /min Mirella Mccracken [facility] Internal Medicine Work Phone: Comment on above: Pattern: Regular 03-15-2019 09:59-0400 Pulse Oximetry 98 % Mirella Mccracken [facility] Internal Medicine Work Phone: Comment on above: Room air 03-15-2019 09:59-0400 Respiratory Rate 18 /min Mirella Mccracken [facility] Internal Medicine Work Phone: Comment on above: Pattern: Unlabored 01-21-2018 08:25-0400 BMI (Body Mass Index) 29.34 kg/m2 Mirella Mccracken [facility] Internal Medicine Work Phone: 01-21-2018 08:25-0400 Body weight 65.89 kg Mirella Mccracken [facility] Internal Medicine Work Phone: 01-21-2018 08:25-0400 BP Diastolic 84 mm[Hg] Mirella Mccracken [facility] Internal Medicine Work Phone: Comment on above: Patient Position: Sitting; Cuff Location : Left Arm; Cuff Size: Large 01-21-2018 08:25-0400 BP Systolic 128 mm[Hg] Mirella Mccracken [facility] Internal Medicine Work Phone: Comment on above: Patient Position: Sitting; Cuff Location : Left Arm; Cuff Size: Large 01-21-2018 08:25-0400 BSA (Body Surface Area) 1.61 m2 Mirella Mccracken [facility] Internal Medicine Work Phone: 01-21-2018 08:25-0400 Height 149.86 cm Mirella Mccracken [facility] Internal Medicine Work Phone: 01-21-2018 08:25-0400 Pulse (Heart Rate) 84 /min Mirella Mccracken [facility] Internal Medicine Work Phone: Comment on above: Pattern: Regular 01-21-2018 08:25-0400 Pulse Oximetry 98 % Mirella Mccracken [facility] Internal Medicine Work Phone: Comment on above: Room air 01-21-2018 08:25-0400 Respiratory Rate 18 /min Mirella Mccracken [facility] Internal Medicine Work Phone: Comment on above: Pattern: Unlabored 01-21-2018 08:25-0400 Weight 65.89 kg Mirella Mccracken [facility] Internal Medicine Work Phone: 11-09-2017 14:35-0500 BMI (Body Mass Index) 28.91 kg/m2 Mirella Solano [facility] Internal Medicine Work Phone: 11-09-2017 14:35-0500 Body weight 64.92 kg Mirella Mccracken [facility] Internal Medicine Work Phone: 11-09-2017 14:35-0500 BP Diastolic 90 mm[Hg] Mirella Mccracken [facility] Internal Medicine Work Phone: Comment on above: Patient Position: Sitting; Cuff Location : Left Arm; Cuff Size: Large 11-09-2017 14:35-0500 BP Systolic 148 mm[Hg] Mirella Mccracken [facility] Internal Medicine Work Phone: Comment on above: Patient Position: Sitting; Cuff Location : Left Arm; Cuff Size: Large 11-09-2017 14:35-0500 BSA (Body Surface Area) 1.6 m2 Mirella Mccracken [facility] Internal Medicine Work Phone: 11-09-2017 14:35-0500 Height 149.86 cm Mirella Mccracken [facility] Internal Medicine Work Phone: 11-09-2017 14:35-0500 Pulse (Heart Rate) 67 /min Mirella Mccracken [facility] Internal Medicine Work Phone: Comment on above: Pattern: Regular 11-09-2017 14:35-0500 Pulse Oximetry 98 % Mirella Mccracken [facility] Internal Medicine Work Phone: Comment on above: Room air 11-09-2017 14:35-0500 Respiratory Rate 18 /min Mirella Mccracken [facility] Internal Medicine Work Phone: Comment on above: Pattern: Unlabored 11-09-2017 14:35-0500 Weight 64.92 kg Mirella Mccracken [facility] Internal Medicine Work Phone: 10-15-2017 09:58-0500 BMI (Body Mass Index) 28.91 kg/m2 Mirella Solano [facility] Internal Medicine Work Phone: 10-15-2017 09:58-0500 Body weight 64.92 kg Mirella Mccracken [facility] Internal Medicine Work Phone: 10-15-2017 09:58-0500 BP Diastolic 78 mm[Hg] Mirella Mccracken [facility] Internal Medicine Work Phone: Comment on above: Patient Position: Sitting; Cuff Location : Left Arm; Cuff Size: Large 10-15-2017 09:58-0500 BP Systolic 146 mm[Hg] Mirella Mccracken [facility] Internal Medicine Work Phone: Comment on above: Patient Position: Sitting; Cuff Location : Left Arm; Cuff Size: Large 10-15-2017 09:58-0500 BSA (Body Surface Area) 1.6 m2 Mirella Mccracken [facility] Internal Medicine Work Phone: 10-15-2017 09:58-0500 Height 149.86 cm Mirella Mccracken [facility] Internal Medicine Work Phone: 10-15-2017 09:58-0500 Pulse (Heart Rate) 74 /min Mirella Mccracken [facility] Internal Medicine Work Phone: Comment on above: Pattern: Regular 10-15-2017 09:58-0500 Pulse Oximetry 99 % Mirella Mccracken [facility] Internal Medicine Work Phone: Comment on above: Room air 10-15-2017 09:58-0500 Respiratory Rate 18 /min Mirella Mccracken [facility] Internal Medicine Work Phone: Comment on above: Pattern: Unlabored 10-15-2017 09:58-0500 Weight 64.92 kg Mirella Mccracken [facility] Internal Medicine Work Phone: 09-18-2017 09:08-0500 BMI (Body Mass Index) 28.91 kg/m2 Mirella Mccracken [facility] Internal Medicine Work Phone: 09-18-2017 09:08-0500 Body weight 64.92 kg Mirella Mccracken [facility] Internal Medicine Work Phone: 09-18-2017 09:08-0500 BP Diastolic 82 mm[Hg] Mirella Mccracken [facility] Internal Medicine Work Phone: Comment on above: Patient Position: Sitting; Cuff Location : Left Arm; Cuff Size: Large 09-18-2017 09:08-0500 BP Systolic 128 mm[Hg] Mirella Mccracken [facility] Internal Medicine Work Phone: Comment on above: Patient Position: Sitting; Cuff Location : Left Arm; Cuff Size: Large 09-18-2017 09:08-0500 BSA (Body Surface Area) 1.6 m2 Mirella Mccracken [facility] Internal Medicine Work Phone: 09-18-2017 09:08-0500 Height 149.86 cm Mirella Mccracken [facility] Internal Medicine Work Phone: 09-18-2017 09:08-0500 Pulse (Heart Rate) 72 /min Mirella Mccracken [facility] Internal Medicine Work Phone: Comment on above: Pattern: Regular 09-18-2017 09:08-0500 Pulse Oximetry 98 % Mirella Mccracken [facility] Internal Medicine Work Phone: Comment on above: Room air 09-18-2017 09:08-0500 Respiratory Rate 18 /min Mirella Mccracken [facility] Internal Medicine Work Phone: Comment on above: Pattern: Unlabored 09-18-2017 09:08-0500 Weight 64.92 kg Mirella Mccracken [facility] Internal Medicine Work Phone: 06-05-2017 11:24-0400 BMI (Body Mass Index) 29.67 kg/m2 [facility] Work Phone: 06-05-2017 11:24-0400 BP Diastolic 68 mm[Hg] [facility] Work Phone: 06-05-2017 11:24-0400 BP Systolic 126 mm[Hg] Hung [facility] Work Phone: 06-05-2017 11:24-0400 Height 147.32 cm Hung [facility] Work Phone: 06-05-2017 11:24-0400 Pulse (Heart Rate) 72 /min [facility] Work Phone: 06-05-2017 11:24-0400 Respiratory Rate 18 /min [facility] Work Phone: 06-05-2017 11:24-0400 Weight 64.41 kg [facility] Work Phone: 05-07-2017 11:04-0400 BMI (Body Mass Index) 29.29 kg/m2 Mirella Mccracken [facility] Internal Medicine Work Phone: 05-07-2017 11:04-0400 Body weight 65.77 kg Mirella Mccracken [facility] Internal Medicine Work Phone: 05-07-2017 11:04-0400 BP Diastolic 82 mm[Hg] Mirella Mccracken [facility] Internal Medicine Work Phone: Comment on above: Patient Position: Sitting; Cuff Location : Left Arm; Cuff Size: Standard 05-07-2017 11:04-0400 BP Systolic 128 mm[Hg] Mirella Mccracken [facility] Internal Medicine Work Phone: Comment on above: Patient Position: Sitting; Cuff Location : Left Arm; Cuff Size: Standard 05-07-2017 11:04-0400 BSA (Body Surface Area) 1.61 m2 Mirella Mccracken [facility] Internal Medicine Work Phone: 05-07-2017 11:04-0400 Height 149.86 cm Mirella Mccracken [facility] Internal Medicine Work Phone: 05-07-2017 11:04-0400 Pulse (Heart Rate) 65 /min Mirella Mccracken [facility] Internal Medicine Work Phone: Comment on above: Pattern: Regular 05-07-2017 11:04-0400 Pulse Oximetry 98 % Mirella Mccracken [facility] Internal Medicine Work Phone: Comment on above: Room air 05-07-2017 11:04-0400 Respiratory Rate 18 /min Mirella Mccracken [facility] Internal Medicine Work Phone: Comment on above: Pattern: Unlabored 05-07-2017 11:04-0400 Weight 65.77 kg Mirella Mccracken [facility] Internal Medicine Work Phone: 03-26-2017 08:06-0400 BMI (Body Mass Index) 29.29 kg/m2 Mirella [facility] Internal Medicine Work Phone: 03-26-2017 08:06-0400 Body Temperature 97.5 [degF] Mirella Mccracken [facility] Internal Medicine Work Phone: Comment on above: Method: Temporal 03-26-2017 08:06-0400 Body weight 65.77 kg Mirella Mccracken [facility] Internal Medicine Work Phone: 03-26-2017 08:06-0400 BP Diastolic 84 mm[Hg] Mirella Mccracken [facility] Internal Medicine Work Phone: Comment on above: Patient Position: Sitting; Cuff Location : Left Arm; Cuff Size: Large 03-26-2017 08:06-0400 BP Systolic 126 mm[Hg] Mirella Mccracken [facility] Internal Medicine Work Phone: Comment on above: Patient Position: Sitting; Cuff Location : Left Arm; Cuff Size: Large 03-26-2017 08:06-0400 BSA (Body Surface Area) 1.61 m2 Mirella Mccracken [facility] Internal Medicine Work Phone: 03-26-2017 08:06-0400 Height 149.86 cm Mirella Mccracken [facility] Internal Medicine Work Phone: 03-26-2017 08:06-0400 Pulse (Heart Rate) 82 /min Mirella Mccracken [facility] Internal Medicine Work Phone: Comment on above: Pattern: Regular 03-26-2017 08:06-0400 Pulse Oximetry 98 % Mirella Mccracken [facility] Internal Medicine Work Phone: Comment on above: Room air 03-26-2017 08:06-0400 Respiratory Rate 16 /min Mirella Mccracken [facility] Internal Medicine Work Phone: Comment on above: Pattern: Unlabored 03-26-2017 08:06-0400 Weight 65.77 kg Mirella Mccracken [facility] Internal Medicine Work Phone: 12-25-2016 10:08-0400 BMI (Body Mass Index) 29.51 kg/m2 Mirella Solano [facility] Internal Medicine Work Phone: 12-25-2016 10:08-0400 Body weight 66.28 kg Mirella Mccracken [facility] Internal Medicine Work Phone: 12-25-2016 10:08-0400 BP Diastolic 80 mm[Hg] Mirella Mccracken [facility] Internal Medicine Work Phone: Comment on above: Patient Position: Sitting; Cuff Location : Left Arm; Cuff Size: Large 12-25-2016 10:08-0400 BP Systolic 122 mm[Hg] Mirella Mccracken [facility] Internal Medicine Work Phone: Comment on above: Patient Position: Sitting; Cuff Location : Left Arm; Cuff Size: Large 12-25-2016 10:08-0400 BSA (Body Surface Area) 1.61 m2 Mirella Mccracken [facility] Internal Medicine Work Phone: 12-25-2016 10:08-0400 Height 149.86 cm Mirella Mccracken [facility] Internal Medicine Work Phone: 12-25-2016 10:08-0400 Pulse (Heart Rate) 69 /min Mirella Mccracken [facility] Internal Medicine Work Phone: Comment on above: Pattern: Regular 12-25-2016 10:08-0400 Pulse Oximetry 98 % Mirella Mccracken [facility] Internal Medicine Work Phone: Comment on above: Room air 12-25-2016 10:08-0400 Respiratory Rate 18 /min Mirella Mccracken [facility] Internal Medicine Work Phone: Comment on above: Pattern: Unlabored 12-25-2016 10:08-0400 Weight 66.28 kg Mirella Mccracken [facility] Internal Medicine Work Phone: 11-03-2016 14:09-0500 BSA (Body Surface Area) 1.59 m2 Hung Davison [facility] Work Phone: 09-25-2016 07:51-0500 BMI (Body Mass Index) 29.94 kg/m2 Mirella Solano [facility] Internal Medicine Work Phone: 09-25-2016 07:51-0500 Body Temperature 97.6 [degF] Mirella Mccracken [facility] Internal Medicine Work Phone: 09-25-2016 07:51-0500 Body weight 67.25 kg Mirella Mccracken [facility] Internal Medicine Work Phone: 09-25-2016 07:51-0500 BP Diastolic 78 mm[Hg] Mirella Mccracken [facility] Internal Medicine Work Phone: Comment on above: Patient Position: Sitting; Cuff Location : Left Arm; Cuff Size: Standard 09-25-2016 07:51-0500 BP Systolic 122 mm[Hg] Mirella Mccracken [facility] Internal Medicine Work Phone: Comment on above: Patient Position: Sitting; Cuff Location : Left Arm; Cuff Size: Standard 09-25-2016 07:51-0500 BSA (Body Surface Area) 1.62 m2 Mirella Mccracken [facility] Internal Medicine Work Phone: 09-25-2016 07:51-0500 Height 149.86 cm Mirella Mccracken [facility] Internal Medicine Work Phone: 09-25-2016 07:51-0500 Pulse (Heart Rate) 94 /min Mirella Mccracken [facility] Internal Medicine Work Phone: Comment on above: Pattern: Regular 09-25-2016 07:51-0500 Pulse Oximetry 96 % Mirella Mccracken [facility] Internal Medicine Work Phone: Comment on above: Room air 09-25-2016 07:51-0500 Respiratory Rate 17 /min Mirella Mccracken [facility] Internal Medicine Work Phone: Comment on above: Pattern: Unlabored 09-25-2016 07:51-0500 Weight 67.25 kg Mirella Mccracken [facility] Internal Medicine Work Phone: 06-25-2016 08:52-0400 BMI (Body Mass Index) 29.54 kg/m2 Mirella Mccracken [facility] Internal Medicine Work Phone: 06-25-2016 08:52-0400 Body weight 66.34 kg Mirella Mccracken [facility] Internal Medicine Work Phone: 06-25-2016 08:52-0400 BP Diastolic 60 mm[Hg] Mirella Mccracken [facility] Internal Medicine Work Phone: Comment on above: Patient Position: Sitting; Cuff Location : Left Arm; Cuff Size: Standard 06-25-2016 08:52-0400 BP Systolic 110 mm[Hg] Mirella Mccracken [facility] Internal Medicine Work Phone: Comment on above: Patient Position: Sitting; Cuff Location : Left Arm; Cuff Size: Standard 06-25-2016 08:52-0400 BSA (Body Surface Area) 1.61 m2 Mirella Mccracken [facility] Internal Medicine Work Phone: 06-25-2016 08:52-0400 Height 149.86 cm Mirella Mccracken [facility] Medicine Work Phone: 06-25-2016 08:52-0400 Pulse (Heart Rate) 72 /min Mirella Mccracken [facility] Internal Medicine Work Phone: Comment on above: Pattern: Regular 06-25-2016 08:52-0400 Pulse Oximetry 100 % Mirella Mccracken [facility] Internal Medicine Work Phone: Comment on above: Room air 06-25-2016 08:52-0400 Respiratory Rate 18 /min Mirella Mccracken [facility] Internal Medicine Work Phone: Comment on above: Pattern: Unlabored 06-25-2016 08:52-0400 Weight 66.34 kg Mirella Mccracken [facility] Internal Medicine Work Phone: 05-21-2016 08:08-0400 BMI (Body Mass Index) 29.39 kg/m2 Mirella Mccracken [facility] Internal Medicine Work Phone: 05-21-2016 08:08-0400 Body Temperature 97.2 [degF] Mirella Mccracken [facility] Internal Medicine Work Phone: 05-21-2016 08:08-0400 Body weight 66 kg Mirella Mccracken [facility] Medicine Work Phone: 05-21-2016 08:08-0400 BP Diastolic 82 mm[Hg] Mirella Mccracken [facility] Internal Medicine Work Phone: Comment on above: Patient Position: Sitting; Cuff Location : Left Arm; Cuff Size: Standard 05-21-2016 08:08-0400 BP Systolic 124 mm[Hg] Mirella Mccracken [facility] Internal Medicine Work Phone: Comment on above: Patient Position: Sitting; Cuff Location : Left Arm; Cuff Size: Standard 05-21-2016 08:08-0400 BSA (Body Surface Area) 1.61 m2 Mirella Mccracken [facility] Internal Medicine Work Phone: 05-21-2016 08:08-0400 Height 149.86 cm Mirella Mccracken [facility] Work Phone: 05-21-2016 08:08-0400 Pulse (Heart Rate) 80 /min Mirella Mccracken [facility] Internal Medicine Work Phone: Comment on above: Pattern: Regular 05-21-2016 08:08-0400 Pulse Oximetry 98 % Mirella Mccracken [facility] Internal Medicine Work Phone: Comment on above: Room air 05-21-2016 08:08-0400 Respiratory Rate 16 /min Mirella Mccracken [facility] Internal Medicine Work Phone: Comment on above: Pattern: Unlabored 05-21-2016 08:08-0400 Weight 66 kg Mirella Mccracken [facility] Internal Medicine Work Phone: 01-04-2016 09:52-0400 BMI (Body Mass Index) 29.59 kg/m2 Mirella Mccracken [facility] Internal Medicine Work Phone: 01-04-2016 09:52-0400 Body weight 66.45 kg Mirella Mccracken [facility] Medicine Work Phone: 01-04-2016 09:52-0400 BP Diastolic 64 mm[Hg] Mirella Mccracken [facility] Medicine Work Phone: Comment on above: Patient Position: Sitting; Cuff Location : Left Arm; Cuff Size: Standard 01-04-2016 09:52-0400 BP Systolic 110 mm[Hg] Mirella Mccracken [facility] Internal Medicine Work Phone: Comment on above: Patient Position: Sitting; Cuff Location : Left Arm; Cuff Size: Standard 01-04-2016 09:52-0400 BSA (Body Surface Area) 1.62 m2 Mirella Mccracken [facility] Internal Medicine Work Phone: 01-04-2016 09:52-0400 Height 149.86 cm Mirella Mccracken [facility] Medicine Work Phone: 01-04-2016 09:52-0400 Pulse (Heart Rate) 64 /min Mirella Mccracken [facility] Internal Medicine Work Phone: Comment on above: Pattern: Regular 01-04-2016 09:52-0400 Pulse Oximetry 97 % iMrella Mccracken [facility] Internal Medicine Work Phone: Comment on above: Room air 01-04-2016 09:52-0400 Respiratory Rate 18 /min Mirella Mccracken [facility] Internal Medicine Work Phone: Comment on above: Pattern: Unlabored 01-04-2016 09:52-0400 Weight 66.45 kg Mirella Mccracken [facility] Internal Medicine Work Phone: 12-06-2015 09:19-0400 BMI (Body Mass Index) 29.89 kg/m2 Mirella Mccracken [facility] Internal Medicine Work Phone: 12-06-2015 09:19-0400 Body weight 67.13 kg Mirella Mccracken [facility] Internal Medicine Work Phone: 12-06-2015 09:19-0400 BP Diastolic 78 mm[Hg] Mirella Mccracken [facility] Internal Medicine Work Phone: Comment on above: Patient Position: Sitting; Cuff Location : Left Arm; Cuff Size: Large 12-06-2015 09:19-0400 BP Systolic 122 mm[Hg] Mirella Mccracken [facility] Internal Medicine Work Phone: Comment on above: Patient Position: Sitting; Cuff Location : Left Arm; Cuff Size: Large 12-06-2015 09:19-0400 BSA (Body Surface Area) 1.62 m2 Mirella Mccracken [facility] Medicine Work Phone: 12-06-2015 09:19-0400 Height 149.86 cm Mirella Mccracken [facility] Medicine Work Phone: 12-06-2015 09:19-0400 Pulse (Heart Rate) 73 /min Mirella Mccracken [facility] Internal Medicine Work Phone: Comment on above: Pattern: Regular 12-06-2015 09:19-0400 Pulse Oximetry 99 % Mirella Mccracken [facility] Internal Medicine Work Phone: Comment on above: Room air 12-06-2015 09:19-0400 Respiratory Rate 18 /min Mirella Mccracken [facility] Internal Medicine Work Phone: Comment on above: Pattern: Unlabored 12-06-2015 09:19-0400 Weight 67.13 kg Mirella Mccracken [facility] Internal Medicine Work Phone: 11-29-2015 09:09-0400 BMI (Body Mass Index) 29.72 kg/m2 Mirella Mccracken [facility] Internal Medicine Work Phone: 11-29-2015 09:09-0400 Body Temperature 98.2 [degF] Mirella Mccracken [facility] Internal Medicine Work Phone: Comment on above: Method: Oral 11-29-2015 09:09-0400 Body weight 66.74 kg Mirella Mccracken [facility] Medicine Work Phone: 11-29-2015 09:09-0400 BP Diastolic 58 mm[Hg] Mirella Mccracken [facility] Work Phone: Comment on above: Patient Position: Sitting; Cuff Location : Left Arm; Cuff Size: Large 11-29-2015 09:09-0400 BP Systolic 100 mm[Hg] Mirella Mccracken [facility] Medicine Work Phone: Comment on above: Patient Position: Sitting; Cuff Location : Left Arm; Cuff Size: Large 11-29-2015 09:09-0400 BSA (Body Surface Area) 1.62 m2 Mirella Mccracken [facility] Work Phone: 11-29-2015 09:09-0400 Height 149.86 cm Mirella Mccracken [facility] Work Phone: 11-29-2015 09:09-0400 Pulse (Heart Rate) 71 /min Mirella Mccracken [facility] Internal Medicine Work Phone: Comment on above: Pattern: Regular 11-29-2015 09:09-0400 Pulse Oximetry 98 % Mirella Mccracken [facility] Medicine Work Phone: Comment on above: Room air 11-29-2015 09:09-0400 Respiratory Rate 18 /min Mirella Mccracken [facility] Internal Medicine Work Phone: Comment on above: Pattern: Unlabored 11-29-2015 09:09-0400 Weight 66.74 kg Mirella Mccracken [facility] Medicine Work Phone: 10-24-2015 10:01-0500 BMI (Body Mass Index) 30.78 kg/m2 Mirella Mccracken [facility] Internal Medicine Work Phone: Comment on above: [facility]-24-2015 10:01-0500 Body weight 69.12 kg [facility]: Comment on above: [facility] 10-24-2015 10:01-0500 BP Diastolic 82 mm[Hg] Mirella [facility] Internal Medicine Work Phone: Comment on above: Patient Position: Sitting; Cuff Location : Left Arm; Cuff Size: Large [facility]-24-2015 10:01-0500 BP Systolic 124 mm[Hg] [facility] Work [facility]: Comment on above: Patient Position: Sitting; Cuff Location : Left Arm; Cuff Size: Large [facility] 10-24-2015 10:01-0500 BSA (Body Surface Area) 1.64 m2 [facility] Work [facility]: Comment on above: [facility] 10-24-2015 10:01-0500 Height 149.86 cm Mirella [facility] Internal Medicine Work Phone: Comment on above: [facility] 10-24-2015 10:01-0500 Pulse (Heart Rate) 66 /min Mirella [facility] Internal Medicine Work Phone: Comment on above: Pattern: Regular [facility] 10-24-2015 10:01-0500 Pulse Oximetry 98 % Mirella [facility] Internal [facility] Work Phone: Comment on above: Room air [facility] 10-24-2015 10:01-0500 Respiratory Rate 18 /min Mirella [facility] Internal Medicine Work Phone: Comment on above: Pattern: Unlabored [facility] 10-24-2015 10:01-0500 Weight 69.12 kg Mirella [facility] Internal Medicine Work Phone: Comment on above: [facility] 07-26-2015 10:22-0500 BMI (Body Mass Index) 32.32 kg/m2 Mirellazac Mccracken [facility] Internal Medicine Work Phone: 07-26-2015 10:22-0500 Body weight 72.58 kg Mirella [facility] Internal Medicine Work Phone: 07-26-2015 10:22-0500 BP Diastolic 80 mm[Hg] [facility] Internal Medicine Work Phone: Comment on above: Patient Position: Sitting; Cuff Location : Left Arm; Cuff Size: Large 07-26-2015 10:22-0500 BP Systolic 138 mm[Hg] [facility] Internal Medicine Work Phone: Comment on above: Patient Position: Sitting; Cuff Location : Left Arm; Cuff Size: Large 07-26-2015 10:22-0500 BSA (Body Surface Area) 1.68 m2 [facility] Internal Medicine Work Phone: 07-26-2015 10:22-0500 Height 149.86 cm Mirella [facility] Work Phone: 07-26-2015 10:22-0500 Pulse [...] BMI (Body Mass Index) 31.02 kg/m2 Mirella Mccracken [facility] Internal Medicine Work Phone: 04-19-2015 10:10-0400 Body Temperature 97.5 [degF] Mirella Mccracken [facility] Internal Medicine Work Phone: Comment on above: Method: Temporal 04-19-2015 10:10-0400 Body weight 69.67 kg Mirella Mccracken [facility] Internal Medicine Work Phone: 04-19-2015 10:10-0400 BP Diastolic 82 mm[Hg] Mirella Mccracken [facility] Internal Medicine Work Phone: Comment on above: Patient Position: Sitting; Cuff Location : Left Arm; Cuff Size: Standard 04-19-2015 10:10-0400 BP Systolic 124 mm[Hg] Mirella Mccracken [facility] Internal Medicine Work Phone: Comment on above: Patient Position: Sitting; Cuff Location : Left Arm; Cuff Size: Standard 04-19-2015 10:10-0400 BSA (Body Surface Area) 1.65 m2 Mirella Mccracken [facility] Internal Medicine Work Phone: 04-19-2015 10:10-0400 Height 149.86 cm Mirella Mccracken [facility] Medicine Work Phone: 04-19-2015 10:10-0400 Pulse (Heart Rate) 62 /min Mirella Mccracken [facility] Internal Medicine Work Phone: Comment on above: Pattern: Regular 04-19-2015 10:10-0400 Pulse Oximetry 98 % Mirella Mccracken [facility] Medicine Work Phone: Comment on above: Room air 04-19-2015 10:10-0400 Respiratory Rate 16 /min Mirella Mccracken [facility] Medicine Work Phone: Comment on above: Pattern: Unlabored 04-19-2015 10:10-0400 Weight 69.67 kg Mirella Mccracken [facility] Internal Medicine Work Phone: 01-11-2015 10:29-0400 BMI (Body Mass Index) 31.2 kg/m2 Mirella Mccracken [facility] Internal Medicine Work Phone: 01-11-2015 10:29040 Body weight 70.08 kg Mirella Mccracken [facility] Medicine Work Phone: 01-11-2015 10:29-0400 BP Diastolic 80 mm[Hg] Mirella Mccracken [facility] Internal Medicine Work Phone: Comment on above: Patient Position: Sitting; Cuff Location : Left Arm; Cuff Size: Standard 01-11-2015 10:29-0400 BP Systolic 128 mm[Hg] Mirella Mccracken [facility] Medicine Work Phone: Comment on above: Patient Position: Sitting; Cuff Location : Left Arm; Cuff Size: Standard 01-11-2015 10:290400 BSA (Body Surface Area) 1.65 m2 Mirella Mccracken [facility] Work Phone: 01-11-2015 10:29-0400 Height 149.86 cm Mirella Mccracken [facility] Medicine Work Phone: 01-11-2015 10:29-0400 Pulse (Heart Rate) 56 /min Mirella Mccracken [facility] Medicine Work Phone: Comment on above: Pattern: Regular 01-11-2015 10:29-0400 Pulse Oximetry 98 % Mirella Mccracken [facility] Medicine Work Phone: Comment on above: Room air 01-11-2015 10:29-0400 Respiratory Rate 18 /min Mirella Mccracken [facility] Medicine Work Phone: Comment on above: Pattern: Unlabored 01-11-2015 10:29-0400 Weight 70.08 kg Mirella Mccracken [facility] Work Phone: 10-31-2014 11:54-0500 Body Temperature 98.4 [degF] Mirella Mccracken [facility] Medicine Work Phone: Comment on above: Method: Oral 10-31-2014 11:54-0500 Body weight 70.76 kg Mirella [facility] Work Phone: 10-31-2014 11:54-0500 BP Diastolic 64 mm[Hg] Mirella Mccrack[facility] Work Phone: Comment on above: Patient Position: Sitting; Cuff Location : Left Arm; Cuff Size: Standard 10-31-2014 11:54-0500 BP Systolic 116 mm[Hg] Mirella Mccrack[facility] Work Phone: Comment on above: Patient Position: Sitting; Cuff Location : Left Arm; Cuff Size: Standard 10-31-2014 11:54-0500 Pulse (Heart Rate) 52 /min Mirella Mccrack[facility] Work Phone: Comment on above: Pattern: Regular 10-31-2014 11:54-0500 Pulse Oximetry 98 % Mirella Mccrack[facility] Work Phone: Comment on above: Room air 10-31-2014 11:54-0500 Respiratory Rate 18 /min Mirella Mccracken [facility] Work Phone: Comment on above: Pattern: Unlabored 10-31-2014 11:54-0500 Weight 70.76 kg Mirella Mccrack[facility] Work Phone: 10-12-2014 10:10-0500 Body Temperature 96.2 [degF] Mirella M[facility] Work Phone: Comment on above: Method: Oral [facility] 03/2014[facility] 10-12-2014 10:10-0500 Body weight 70.76 kg Mirella Mcc[facility] Work Phone: Comment on above: [facility] 03/2014[facility] 10-12-2014 10:10-0500 BP Diastolic 82 mm[Hg] Mirella [facility] Work Phone: Comment on above: Patient Position: Sitting; Cuff Location : Left Arm; Cuff Size: Large [facility] 03/2014[facility] 10-12-2014 10:10-0500 BP Systolic 132 mm[Hg] Mirella [facility] Work Phone: Comment on above: Patient Position: Sitting; Cuff Location : Left Arm; Cuff Size: Large [facility] 03/2014[facility] 10-12-2014 10:10-0500 Pulse (Heart Rate) 61 /min Mirella M[facility] Work Phone: Comment on above: Pattern: Regular [facility] 03/2014[facility] 10-12-2014 10:10-0500 Pulse Oximetry 96 % Mirella Mccrack[facility] Work Phone: Comment on above: Room air [facility] 03/2014[facility] 10-12-2014 10:10-0500 Respiratory Rate 18 /min Mirella Mccrack[facility] Work Phone: Comment on above: Pattern: Unlabored [facility] 03/2014[facility] 10-12-2014 10:10-0500 Weight 70.76 kg Mirella [facility] Work Phone: Comment on above: [facility] 03/2014[facility] 08-31-2014 11:25-0500 Body weight 68.66 kg Mirella [facility] Work Phone: 08-31-2014 11:25-0500 BP Diastolic 82 mm[Hg] Mirellaleatha Mccracken [facility] Work Phone: Comment on above: Patient Position: Sitting; Cuff Location : Left Arm; Cuff Size: Large 08-31-2014 11:25-0500 BP Systolic 138 mm[Hg] Mirellaleatha Mccracken [facility] Work Phone: Comment on above: Patient Position: Sitting; Cuff Location : Left Arm; Cuff Size: Large 08-31-2014 11:25-0500 Pulse (Heart Rate) 56 /min Mirellaleatha Mccracken [facility] Work Phone: Comment on above: Pattern: Regular 08-31-2014 11:25-0500 Respiratory Rate 18 /min Mirella [facility] Work Phone: Comment on above: Pattern: Unlabored 08-31-2014 11:25-0500 Weight 68.66 kg Mirella Mccracken [facility] Work Phone: 08-14-2014 14:10-0500 Body Temperature 97.3 [degF] Mirella Mccracken [facility] Work Phone: Comment on above: Method: Oral 08-14-2014 14:10-0500 Body weight 69.15 kg Mirella Mccracken [facility] Work Phone: 08-14-2014 14:10-0500 BP Diastolic 72 mm[Hg] Mirella Mccracken [facility] Work Phone: Comment on above: Patient Position: Sitting; Cuff Location : Left Arm; Cuff Size: Standard 08-14-2014 14:10-0500 BP Systolic 132 mm[Hg] Mirella Mccracken [facility] Work Phone: Comment on above: Patient Position: Sitting; Cuff Location : Left Arm; Cuff Size: Standard 08-14-2014 14:10-0500 Pulse (Heart Rate) 53 /min Mirella Mccracken [facility] Work Phone: Comment on above: Pattern: Regular 08-14-2014 14:10-0500 Pulse Oximetry 97 % Mirella Mccracken [facility] Work Phone: Comment on above: Room air 08-14-2014 14:10-0500 Respiratory Rate 16 /min Mirella Mccracken [facility] Work Phone: Comment on above: Pattern: Unlabored 08-14-2014 14:10-0500 Weight 69.15 kg Mirella Mccracken [facility] Work Phone: 07-26-2014 10:15-0500 BMI (Body Mass Index) 30.55 kg/m2 Mirella Mccracken [facility] Internal Medicine Work Phone: 07-26-2014 10:15-0500 Body Temperature 97.4 [degF] Mirella Mccracken [facility] Work Phone: Comment on above: Method: Oral 07-26-2014 10:15-0500 Body weight 68.61 kg Mirella Mccracken [facility] Work Phone: 07-26-2014 10:15-0500 BP Diastolic 70 mm[Hg] Mirlela Mccracken [facility] Work Phone: Comment on above: Patient Position: Sitting; Cuff Location : Left Arm; Cuff Size: Standard 07-26-2014 10:15-0500 BP Systolic 110 mm[Hg] Mirella Mccracken [facility] Work Phone: Comment on above: Patient Position: Sitting; Cuff Location : Left Arm; Cuff Size: Standard 07-26-2014 10:15-0500 BSA (Body Surface Area) 1.64 m2 Mirella Mccracken [facility] Work Phone: 07-26-2014 10:15-0500 Height 149.86 cm Mirella Mccracken [facility] Work Phone: 07-26-2014 10:15-0500 Pulse (Heart Rate) 66 /min Mirella Mccracken [facility] Work Phone: Comment on above: Pattern: Regular 07-26-2014 10:15-0500 Pulse Oximetry 95 % Mirella Mccracken [facility] Work Phone: Comment on above: Room air 07-26-2014 10:15-0500 Respiratory Rate 15 /min Mirella Mccracken [facility] Work Phone: 07-26-2014 10:15-0500 Weight 68.61 kg Mirella Mccracken [facility] Work Phone: 07-25-2014 14:56-0500 BMI (Body Mass Index) 30.55 kg/m2 Mirella Mccracken [facility] Medicine Work Phone: 07-25-2014 14:56-0500 Body weight 68.61 kg Mirella Mccracken [facility] Work Phone: 07-25-2014 14:56-0500 BP Diastolic 80 mm[Hg] Mirella Mccracken [facility] Work Phone: Comment on above: Patient Position: Sitting; Cuff Location : Left Arm; Cuff Size: Large 07-25-2014 14:56-0500 BP Systolic 140 mm[Hg] Mirella Mccracken [facility] Work Phone: Comment on above: Patient Position: Sitting; Cuff Location : Left Arm; Cuff Size: Large 07-25-2014 14:56-0500 BSA (Body Surface Area) 1.64 m2 Mirella Mccracken [facility] Work Phone: 07-25-2014 14:56-0500 Height 149.86 cm Mirella Mccracken [facility] Work Phone: 07-25-2014 14:56-0500 Pulse (Heart Rate) 59 /min Mirella Mccracken [facility] Work Phone: Comment on above: Pattern: Regular 07-25-2014 14:56-0500 Pulse Oximetry 98 % Mirella Mccracken [facility] Work Phone: Comment on above: Room air 07-25-2014 14:56-0500 Respiratory Rate 18 /min Mirella Mccracken [facility] Work Phone: Comment on above: Pattern: Unlabored 07-25-2014 14:56-0500 Weight 68.61 kg Mirella Mccracken [facility] Work Phone: 07-13-2014 12:20-0400 BMI (Body Mass Index) 30.5 kg/m2 Mirella Mccracken [facility] Internal Medicine Work Phone: 07-13-2014 12:20-0400 Body weight 68.49 kg Mirella Mccracken [facility] Work Phone: 07-13-2014 12:20-0400 BP Diastolic 78 mm[Hg] Mirella Mccracken [facility] Work Phone: Comment on above: Patient Position: Sitting; Cuff Location : Left Arm; Cuff Size: Large 07-13-2014 12:20-0400 BP Systolic 138 mm[Hg] Mirella Mccracken [facility] Work Phone: Comment on above: Patient Position: Sitting; Cuff Location : Left Arm; Cuff Size: Large 07-13-2014 12:20-0400 BSA (Body Surface Area) 1.64 m2 Mirella Mccracken [facility] Work Phone: 07-13-2014 12:20-0400 Height 149.86 cm Mirella Mccracken [facility] Work Phone: 07-13-2014 12:20-0400 Pulse (Heart Rate) 58 /min Mirella Mccracken [facility] Work Phone: Comment on above: Pattern: Regular 07-13-2014 12:20-0400 Pulse Oximetry 96 % Mirella Mccracken [facility] Work Phone: Comment on above: Room air 07-13-2014 12:20-0400 Respiratory Rate 20 /min Mirella Mccracken [facility] Work Phone: Comment on above: Pattern: Unlabored 07-13-2014 12:20-0400 Weight 68.49 kg Mirella Mccracken [facility] Work Phone: 04-17-2014 11:27-0400 BMI (Body Mass Index) 30.59 kg/m2 Mirella Mccracken [facility] Internal Medicine Work Phone: 04-17-2014 11:27-0400 Body weight 68.69 kg Mirella Mccracken [facility] Work Phone: 04-17-2014 11:27-0400 BP Diastolic 70 mm[Hg] Mirella Mccracken [facility] Medicine Work Phone: Comment on above: Patient Position: Sitting; Cuff Location : Left Arm; Cuff Size: Large 04-17-2014 11:27-0400 BP Systolic 124 mm[Hg] Mirella Mccracken [facility] Work Phone: Comment on above: Patient Position: Sitting; Cuff Location : Left Arm; Cuff Size: Large 04-17-2014 11:27-0400 BSA (Body Surface Area) 1.64 m2 Mirella Mccracken [facility] Work Phone: 04-17-2014 11:27-0400 Height 149.86 cm Mirella Mccracken [facility] Medicine Work Phone: 04-17-2014 11:27-0400 Pulse (Heart Rate) 72 /min Mirella Mccracken [facility] Internal Medicine Work Phone: Comment on above: Pattern: Regular 04-17-2014 11:27-0400 Pulse Oximetry 97 % Mirella Mccracken [facility] Internal Medicine Work Phone: Comment on above: Room air 04-17-2014 11:27-0400 Respiratory Rate 18 /min Mirella Mccracken [facility] Internal Medicine Work Phone: Comment on above: Pattern: Unlabored 04-17-2014 11:27-0400 Weight 68.69 kg Mirella Mccracken [facility] Internal Medicine Work Phone: 04-06-2014 11:09-0400 BMI (Body Mass Index) 30.59 kg/m2 Mirella Mccracken [facility] Internal Medicine Work Phone: 04-06-2014 11:09-0400 Body weight 68.69 kg Mirella Mccracken [facility] Internal Medicine Work Phone: 04-06-2014 11:09-0400 BP Diastolic 80 mm[Hg] Mirella Mccracken [facility] Internal Medicine Work Phone: Comment on above: Patient Position: Sitting; Cuff Location : Left Arm; Cuff Size: Standard 04-06-2014 11:09-0400 BP Systolic 142 mm[Hg] Mirella Mccracken [facility] Internal Medicine Work Phone: Comment on above: Patient Position: Sitting; Cuff Location : Left Arm; Cuff Size: Standard 04-06-2014 11:090400 BSA (Body Surface Area) 1.64 m2 Mirella Mccracken [facility] Internal Medicine Work Phone: 04-06-2014 11:090400 Height 149.86 cm Mirella Mccracken [facility] Internal Medicine Work Phone: 04-06-2014 11:09-0400 Pulse (Heart Rate) 73 /min Mirella Mccracken [facility] Internal Medicine Work Phone: Comment on above: Pattern: Regular 04-06-2014 11:090400 Pulse Oximetry 97 % Mirella Mccracken [facility] Internal Medicine Work Phone: Comment on above: Room air 04-06-2014 11:09-0400 Respiratory Rate 18 /min Mirella Mccracken [facility] Internal Medicine Work Phone: Comment on above: Pattern: Unlabored 04-06-2014 11:09-0400 Weight 68.69 kg Mirella Mccracken [facility] Internal Medicine Work Phone: 12-30-2013 10:27-0400 BMI (Body Mass Index) 32.03 kg/m2 Mirella Mccracken [facility] Internal Medicine Work Phone: 12-30-2013 10:27-0400 Body Temperature 98.2 [degF] Mirella Mccracken [facility] Internal Medicine Work Phone: Comment on above: Method: Oral 12-30-2013 10:27-0400 Body weight 71.92 kg Mirella Mccracken [facility] Internal Medicine Work Phone: 12-30-2013 10:27-0400 BP Diastolic 70 mm[Hg] Mirella Mccracken [facility] Internal Medicine Work Phone: Comment on above: Patient Position: Sitting; Cuff Location : Left Arm; Cuff Size: Large 12-30-2013 10:27-0400 BP Systolic 120 mm[Hg] Mirella Mccracken [facility] Internal Medicine Work Phone: Comment on above: Patient Position: Sitting; Cuff Location : Left Arm; Cuff Size: Large 12-30-2013 10:27-0400 BSA (Body Surface Area) 1.67 m2 Mirella Mccracken [facility] Internal Medicine Work Phone: 12-30-2013 10:27-0400 Height 149.86 cm Mirella Mccracken [facility] Internal Medicine Work Phone: 12-30-2013 10:27-0400 Pulse (Heart Rate) 66 /min Mirella Mccracken [facility] Internal Medicine Work Phone: Comment on above: Pattern: Regular 12-30-2013 10:270400 Pulse Oximetry 97 % Mirella Mccracken [facility] Internal Medicine Work Phone: Comment on above: Room air 12-30-2013 10:27-0400 Respiratory Rate 20 /min Mirella Mccracken [facility] Internal Medicine Work Phone: Comment on above: Pattern: Unlabored 12-30-2013 10:27-0400 Weight 71.92 kg Mirella Mccracken [facility] Internal Medicine Work Phone: 12-22-2013 10:09-0400 BMI (Body Mass Index) 31.79 kg/m2 Mirella Mccracken [facility] Internal Medicine Work Phone: 12-22-2013 10:090400 Body Temperature 98.2 [degF] Mirella Mccracken [facility] Internal Medicine Work Phone: Comment on above: Method: Oral 12-22-2013 10:0400 Body weight 71.39 kg Mirella Mccracken [facility] Internal Medicine Work Phone: 12-22-2013 10:09-0400 BP Diastolic 60 mm[Hg] Mirella Mccracken [facility] Internal Medicine Work Phone: Comment on above: Patient Position: Sitting; Cuff Location : Left Arm; Cuff Size: Large 12-22-2013 10:09-0400 BP Systolic 104 mm[Hg] Mirella Mccracken [facility] Internal Medicine Work Phone: Comment on above: Patient Position: Sitting; Cuff Location : Left Arm; Cuff Size: Large 12-22-2013 10:090400 BSA (Body Surface Area) 1.67 m2 Mirella Mccracken [facility] Internal Medicine Work Phone: 12-22-2013 10:090400 Height 149.86 cm Mirella Mccracken [facility] Internal Medicine Work Phone: 12-22-2013 10:09-0400 Pulse (Heart Rate) 65 /min Mirella Mccracken [facility] Internal Medicine Work Phone: Comment on above: Pattern: Regular 12-22-2013 10:090400 Pulse Oximetry 98 % Mirella Mccracken [facility] Internal Medicine Work Phone: Comment on above: Room air 12-22-2013 10:090400 Respiratory Rate 20 /min Mirella Mccracken [facility] Internal Medicine Work Phone: Comment on above: Pattern: Unlabored 12-22-2013 10:09-0400 Weight 71.39 kg Mirella Mccracken [facility] Internal Medicine Work Phone: 12-01-2013 09:54-0400 BMI (Body Mass Index) 32.32 kg/m2 Mirella [facility] Internal Medicine Work Phone: 12-01-2013 09:54-0400 Body Temperature 98.4 [degF] Mirella Mccracken [facility] Internal Medicine Work Phone: Comment on above: Method: Temporal 12-01-2013 09:54-0400 Body weight 72.58 kg Mirella Mccracken [facility] Internal Medicine Work Phone: 12-01-2013 09:54-0400 BP Diastolic 62 mm[Hg] Mirella Mccracken [facility] Internal Medicine Work Phone: Comment on above: Patient Position: Sitting; Cuff Location : Left Arm; Cuff Size: Standard 12-01-2013 09:54-0400 BP Systolic 124 mm[Hg] Mirella Mccracken [facility] Internal Medicine Work Phone: Comment on above: Patient Position: Sitting; Cuff Location : Left Arm; Cuff Size: Standard 12-01-2013 09:54-0400 BSA (Body Surface Area) 1.68 m2 Mirella Mccracken [facility] Internal Medicine Work Phone: 12-01-2013 09:54-0400 Height 149.86 cm Mirella Mccracken [facility] Internal Medicine Work Phone: 12-01-2013 09:54-0400 Pulse (Heart Rate) 69 /min Mirella Mccracken [facility] Internal Medicine Work Phone: Comment on above: Pattern: Regular 12-01-2013 09:54-0400 Pulse Oximetry 97 % Mirella Mccracken [facility] Internal Medicine Work Phone: Comment on above: Room air 12-01-2013 09:54-0400 Respiratory Rate 16 /min Mirella Mccracken [facility] Internal Medicine Work Phone: Comment on above: Pattern: Unlabored 12-01-2013 09:54-0400 Weight 72.58 kg Mirella Mccracken [facility] Internal Medicine Work Phone: 09-23-2013 11:57-0500 BMI (Body Mass Index) 33.01 kg/m2 Mirella Solano [facility] Internal Medicine Work Phone: 09-23-2013 11:57-0500 Body weight 74.14 kg Mirella Mccracken [facility] Internal Medicine Work Phone: 09-23-2013 11:57-0500 BP Diastolic 80 mm[Hg] Mirella Mccracken [facility] Internal Medicine Work Phone: Comment on above: Patient Position: Sitting; Cuff Location : Left Arm; Cuff Size: Large 09-23-2013 11:57-0500 BP Systolic 122 mm[Hg] Mirella Mccracken [facility] Internal Medicine Work Phone: Comment on above: Patient Position: Sitting; Cuff Location : Left Arm; Cuff Size: Large 09-23-2013 11:57-0500 BSA (Body Surface Area) 1.69 m2 Mirella Mccracken [facility] Internal Medicine Work Phone: 09-23-2013 11:57-0500 Height 149.86 cm Mirella Mccracken [facility] Internal Medicine Work Phone: 09-23-2013 11:57-0500 Pulse (Heart Rate) 66 /min Mirella Mccracken [facility] Internal Medicine Work Phone: Comment on above: Pattern: Regular 09-23-2013 11:57-0500 Pulse Oximetry 98 % Mirella Mccracken [facility] Internal Medicine Work Phone: Comment on above: Room air 09-23-2013 11:57-0500 Respiratory Rate 18 /min Mirella Mccracken [facility] Internal Medicine Work Phone: Comment on above: Pattern: Unlabored 09-23-2013 11:57-0500 Weight 74.14 kg Mirella Mccracken [facility] Internal Medicine Work Phone: 08-01-2013 10:54-0500 BMI (Body Mass Index) 33.58 kg/m2 Mirella Solano [facility] Internal Medicine Work Phone: 08-01-2013 10:54-0500 Body Temperature 98.3 [degF] Mirella Mccracken [facility] Internal Medicine Work Phone: Comment on above: Method: Oral 08-01-2013 10:54-0500 Body weight 75.41 kg Mirella Mccracken [facility] Internal Medicine Work Phone: 08-01-2013 10:54-0500 BP Diastolic 60 mm[Hg] Mirella Mccracken [facility] Internal Medicine Work Phone: Comment on above: Patient Position: Sitting; Cuff Location : Left Arm; Cuff Size: Large 08-01-2013 10:54-0500 BP Systolic 102 mm[Hg] Mirella Mccracken [facility] Internal Medicine Work Phone: Comment on above: Patient Position: Sitting; Cuff Location : Left Arm; Cuff Size: Large 08-01-2013 10:54-0500 BSA (Body Surface Area) 1.7 m2 Mirella Mccracken [facility] Internal Medicine Work Phone: 08-01-2013 10:54-0500 Height 149.86 cm Mirella Mccracken [facility] Internal Medicine Work Phone: 08-01-2013 10:54-0500 Pulse (Heart Rate) 68 /min Mirella Mccracken [facility] Internal Medicine Work Phone: Comment on above: Pattern: Regular 08-01-2013 10:54-0500 Pulse Oximetry 97 % Mirella Mccracken [facility] Internal Medicine Work Phone: Comment on above: Room air 08-01-2013 10:54-0500 Respiratory Rate 20 /min Mirella Mccracken [facility] Internal Medicine Work Phone: Comment on above: Pattern: Unlabored 08-01-2013 10:54-0500 Weight 75.41 kg Mirella Mccracken [facility] Internal Medicine Work Phone: 07-04-2013 09:33-0400 BMI (Body Mass Index) 33.73 kg/m2 Mirella Mccracken [facility] Internal Medicine Work Phone: Comment on above: hearing wnlvision Dr. Jones 07-04-2013 09:33-0400 Body Temperature 98.2 [degF] [facility] Internal Medicine Work Phone: Comment on above: Method: Oral hearing wnlvision Dr Samaria Jones 07-04-2013 09:33-0400 Body weight 75.75 kg [facility] Work Phone: Comment on above: hearing wnlvision Dr. Jones 07-04-2013 09:33-0400 BP Diastolic 62 mm[Hg] [facility] Internal Medicine Work Phone: Comment on above: Patient Position: Sitting; Cuff Location : Left Arm; Cuff Size: Large hearing wnlvision Dr Samaria oJnes 07-04-2013 09:33-0400 BP Systolic 120 mm[Hg] [facility] Internal Medicine Work Phone: Comment on above: Patient Position: Sitting; Cuff Location : Left Arm; Cuff Size: Large hearing yazminlvision Dr Samaria Jones 07-04-2013 09:33-0400 BSA (Body Surface Area) 1.71 m2 [facility] Medicine Work Phone: Comment on above: hearing wnlvision Dr. Jones 07-04-2013 09:33-0400 Height 149.86 cm [facility] Internal Medicine Work Phone: Comment on above: hearing wnlvision Dr. Jones 07-04-2013 09:33-0400 Pulse (Heart Rate) 52 /min [facility] Medicine Work Phone: Comment on above: Pattern: Regular hearing wnlvision Dr Samaria Jones 07-04-2013 09:33-0400 Pulse Oximetry 97 % [facility] Medicine Work Phone: Comment on above: Room air hearing wnlvision Dr Samaria Jones 07-04-2013 09:33-0400 Respiratory Rate 20 /min [facility] Internal Medicine Work Phone: Comment on above: Pattern: Unlabored hearing wnlvision Dr Samaria Jones 07-04-2013 09:33-0400 Weight 75.75 kg [facility] Medicine Work Phone: Comment on above: hearing wnlvision Dr. Jones 06-27-2013 14:49-0400 BMI (Body Mass Index) 33.73 kg/m2 Mirella Solano [facility] Internal Medicine Work Phone: 06-27-2013 14:49-0400 Body weight 75.75 kg Mirella Mccracken [facility] Internal Medicine Work Phone: 06-27-2013 14:49-0400 BP Diastolic 62 mm[Hg] Mirella Mccracken [facility] Internal Medicine Work Phone: Comment on above: Patient Position: Sitting; Cuff Location : Left Arm; Cuff Size: Large 06-27-2013 14:49-0400 BP Systolic 128 mm[Hg] Mirella Mccracken [facility] Internal Medicine Work Phone: Comment on above: Patient Position: Sitting; Cuff Location : Left Arm; Cuff Size: Large 06-27-2013 14:49-0400 BSA (Body Surface Area) 1.71 m2 Mirella Mccracken [facility] Work Phone: 06-27-2013 14:49-0400 Height 149.86 cm Mirella Mccracken [facility] Internal Medicine Work Phone: 06-27-2013 14:49-0400 Pulse (Heart Rate) 61 /min Mirella Mccracken [facility] Internal Medicine Work Phone: Comment on above: Pattern: Regular 06-27-2013 14:49-0400 Pulse Oximetry 98 % Mirella Mccracken [facility] Internal Medicine Work Phone: Comment on above: Room air 06-27-2013 14:49-0400 Respiratory Rate 20 /min Mirella Mccracken [facility] Internal Medicine Work Phone: Comment on above: Pattern: Unlabored 06-27-2013 14:49-0400 Weight 75.75 kg Mirella Mccracken [facility] Internal Medicine Work Phone: 06-20-2013 12:56-0400 BMI (Body Mass Index) 33.53 kg/m2 Mirella Solano [facility] Internal Medicine Work Phone: 06-20-2013 12:56-0400 Body Temperature 97.6 [degF] Mirella Mccracken [facility] Internal Medicine Work Phone: Comment on above: Method: Oral 06-20-2013 12:56-0400 Body weight 75.3 kg Mirella Mccracken [facility] Internal Medicine Work Phone: 06-20-2013 12:56-0400 BP Diastolic 68 mm[Hg] Mirella Mccracken [facility] Internal Medicine Work Phone: Comment on above: Patient Position: Sitting; Cuff Location : Left Arm; Cuff Size: Standard 06-20-2013 12:56-0400 BP Systolic 118 mm[Hg] Mirella Mccracken [facility] Internal Medicine Work Phone: Comment on above: Patient Position: Sitting; Cuff Location : Left Arm; Cuff Size: Standard 06-20-2013 12:56-0400 BSA (Body Surface Area) 1.7 m2 Mirella Mccracken [facility] Internal Medicine Work Phone: 06-20-2013 12:56-0400 Height 149.86 cm Mirella Mccracken [facility] Internal Medicine Work Phone: 06-20-2013 12:56-0400 Pulse (Heart Rate) 68 /min Mirella Mccracken [facility] Internal Medicine Work Phone: Comment on above: Pattern: Regular 06-20-2013 12:56-0400 Respiratory Rate 20 /min Mirella Mccracken [facility] Internal Medicine Work Phone: Comment on above: Pattern: Unlabored 06-20-2013 12:56-0400 Weight 75.3 kg Mirella Mccracken [facility] Internal Medicine Work Phone: 05-20-2013 08:13-0400 BMI (Body Mass Index) 33.63 kg/m2 Mirella Mccracken [facility] Internal Medicine Work Phone: 05-20-2013 08:13-0400 Body weight 75.52 kg Mirella Mccracken [facility] Internal Medicine Work Phone: 05-20-2013 08:13-0400 BP Diastolic 62 mm[Hg] Mriella Mccracken [facility] Internal Medicine Work Phone: Comment on above: Patient Position: Sitting; Cuff Location : Left Arm; Cuff Size: Standard 05-20-2013 08:130400 BP Systolic 128 mm[Hg] Mirella Mccracken [facility] Internal Medicine Work Phone: Comment on above: Patient Position: Sitting; Cuff Location : Left Arm; Cuff Size: Standard 05-20-2013 08:13-0400 BSA (Body Surface Area) 1.71 m2 Mirella Mccracken [facility] Internal Medicine Work Phone: 05-20-2013 08:13-0400 Height 149.86 cm Mirella Mccracken [facility] Internal Medicine Work Phone: 05-20-2013 08:13-0400 Pulse (Heart Rate) 60 /min Mirella Mccracken [facility] Internal Medicine Work Phone: Comment on above: Pattern: Regular 05-20-2013 08:13-0400 Respiratory Rate 20 /min Mirella Mccracken [facility] Internal Medicine Work Phone: Comment on above: Pattern: Unlabored 05-20-2013 08:13-0400 Weight 75.52 kg Mirella Mccracken [facility] Internal Medicine Work Phone: 04-22-2013 15:16-0400 BMI (Body Mass Index) 33.63 kg/m2 Mirella Mccracken [facility] Internal Medicine Work Phone: 04-22-2013 15:16-0400 Body Temperature 96 [degF] Mirella Mccracken [facility] Internal Medicine Work Phone: Comment on above: Method: Oral 04-22-2013 15:16-0400 Body weight 75.52 kg Mirella Mccracken [facility] Internal Medicine Work Phone: 04-22-2013 15:16-0400 BP Diastolic 74 mm[Hg] Mirella Mccracken [facility] Internal Medicine Work Phone: Comment on above: Patient Position: Sitting; Cuff Location : Left Arm; Cuff Size: Large 04-22-2013 15:16-0400 BP Systolic 126 mm[Hg] Mirella Mccracken [facility] Internal Medicine Work Phone: Comment on above: Patient Position: Sitting; Cuff Location : Left Arm; Cuff Size: Large 04-22-2013 15:16-0400 BSA (Body Surface Area) 1.71 m2 Mirella Mccracken [facility] Internal Medicine Work Phone: 04-22-2013 15:16-0400 Height 149.86 cm Mirella Mccracken [facility] Internal Medicine Work Phone: 04-22-2013 15:16-0400 Pulse (Heart Rate) 64 /min Mirella Mccracken [facility] Internal Medicine Work Phone: Comment on above: Pattern: Regular 04-22-2013 15:16-0400 Respiratory Rate 18 /min Mirella Mccracken [facility] Internal Medicine Work Phone: Comment on above: Pattern: Unlabored 04-22-2013 15:16-0400 Weight 75.52 kg Mirella Mccracken [facility] Internal Medicine Work Phone: 04-15-2013 15:12-0400 BMI (Body Mass Index) 34.65 kg/m2 Mirella Mccracken [facility] Internal Medicine Work Phone: 04-15-2013 15:12-0400 Body Temperature 98 [degF] Mirella Mccracken [facility] Internal Medicine Work Phone: Comment on above: Method: Oral 04-15-2013 15:12-0400 Body weight 77.82 kg Mirella Mccracken [facility] Internal Medicine Work Phone: 04-15-2013 15:12-0400 BP Diastolic 70 mm[Hg] Mirella Mccracken [facility] Internal Medicine Work Phone: Comment on above: Patient Position: Sitting; Cuff Location : Left Arm; Cuff Size: Standard 04-15-2013 15:12-0400 BP Systolic 120 mm[Hg] Mirella Mccracken [facility] Internal Medicine Work Phone: Comment on above: Patient Position: Sitting; Cuff Location : Left Arm; Cuff Size: Standard 04-15-2013 15:12-0400 BSA (Body Surface Area) 1.73 m2 Mirella Mccracken [facility] Internal Medicine Work Phone: 04-15-2013 15:12-0400 Height 149.86 cm Mirella Mccracken [facility] Internal Medicine Work Phone: 04-15-2013 15:12-0400 Pulse (Heart Rate) 64 /min Mirella Mccracken [facility] Internal Medicine Work Phone: Comment on above: Pattern: Regular 04-15-2013 15:12-0400 Pulse Oximetry 98 % Mirella Mccracken [facility] Internal Medicine Work Phone: Comment on above: Room air 04-15-2013 15:12-0400 Weight 77.82 kg Mirella Mccracken [facility] Internal Medicine Work Phone: 03-31-2013 11:15-0400 BMI (Body Mass Index) 32.96 kg/m2 Mirella Mccracken [facility] Internal Medicine Work Phone: 03-31-2013 11:15-0400 Body Temperature 97.5 [degF] Mirella Mccracken [facility] Internal Medicine Work Phone: Comment on above: Method: Oral 03-31-2013 11:15-0400 Body weight 74.02 kg Mirella Mccracken [facility] Internal Medicine Work Phone: 03-31-2013 11:15-0400 BP Diastolic 60 mm[Hg] Mirella Mccracken [facility] Internal Medicine Work Phone: Comment on above: Patient Position: Sitting; Cuff Location : Left Arm; Cuff Size: Large 03-31-2013 11:15-0400 BP Systolic 118 mm[Hg] Mirella Mccracken [facility] Internal Medicine Work Phone: Comment on above: Patient Position: Sitting; Cuff Location : Left Arm; Cuff Size: Large 03-31-2013 11:15-0400 BSA (Body Surface Area) 1.69 m2 Mirella Mccracken [facility] Internal Medicine Work Phone: 03-31-2013 11:15-0400 Height 149.86 cm Mirella Mccracken [facility] Internal Medicine Work Phone: 03-31-2013 11:15-0400 Pulse (Heart Rate) 60 /min Mirella Mccracken [facility] Internal Medicine Work Phone: Comment on above: Pattern: Regular 03-31-2013 11:15-0400 Respiratory Rate 20 /min Mirella Mccracken [facility] Internal Medicine Work Phone: Comment on above: Pattern: Unlabored 03-31-2013 11:15-0400 Weight 74.02 kg Mirella Mccracken [facility] Internal Medicine Work Phone: 02-28-2013 09:53-0400 BMI (Body Mass Index) 32.57 kg/m2 Mirella Mccracken [facility] Internal Medicine Work Phone: 02-28-2013 09:53-0400 Body Temperature 98.3 [degF] Mirella Mccracken [facility] Internal Medicine Work Phone: Comment on above: Method: Oral 02-28-2013 09:53-0400 Body weight 73.14 kg Mirella Mccracken [facility] Internal Medicine Work Phone: 02-28-2013 09:53-0400 BP Diastolic 62 mm[Hg] Mirella Mccracken [facility] Internal Medicine Work Phone: Comment on above: Patient Position: Sitting; Cuff Location : Left Arm; Cuff Size: Large 02-28-2013 09:53-0400 BP Systolic 120 mm[Hg] Mirella Mccracken [facility] Internal Medicine Work Phone: Comment on above: Patient Position: Sitting; Cuff Location : Left Arm; Cuff Size: Large 02-28-2013 09:53-0400 BSA (Body Surface Area) 1.68 m2 Mirella Mccracken [facility] Internal Medicine Work Phone: 02-28-2013 09:53-0400 Height 149.86 cm Mirella Mccracken [facility] Internal Medicine Work Phone: 02-28-2013 09:53-0400 Pulse (Heart Rate) 60 /min Mirella Mccracken [facility] Internal Medicine Work Phone: Comment on above: Pattern: Regular 02-28-2013 09:53-0400 Respiratory Rate 18 /min Mirella Mccracken [facility] Internal Medicine Work Phone: Comment on above: Pattern: Unlabored 02-28-2013 09:53-0400 Weight 73.14 kg Mirella Mccracken [facility] Internal Medicine Work Phone: 11-15-2012 14:01-0500 BMI (Body Mass Index) 32.57 kg/m2 [facility] Work Phone: 11-15-2012 14:01-0500 Body Temperature 97.9 [degF] Mirella Mccracken [facility] Internal Medicine Work Phone: Comment on above: Method: Oral 11-15-2012 14:-0500 Body weight 73.14 kg Mirella Mccracken [facility] Internal Medicine Work Phone: 11-15-2012 14:01-0500 BP Diastolic 78 mm[Hg] Mirella Mccracken [facility] Internal Medicine Work Phone: Comment on above: Patient Position: Sitting; Cuff Location : Left Arm; Cuff Size: Large 11-15-2012 14:01-0500 BP Systolic 122 mm[Hg] Mirella Mccracken [facility] Internal Medicine Work Phone: Comment on above: Patient Position: Sitting; Cuff Location : Left Arm; Cuff Size: Large 11-15-2012 14:01-0500 BSA (Body Surface Area) 1.68 m2 Mirella Mccracken [facility] Internal Medicine Work Phone: 11-15-2012 14:01-0500 Height 149.86 cm Mirella Mccracken [facility] Internal Medicine Work Phone: 11-15-2012 14:01-0500 Pulse (Heart Rate) 72 /min Mirella Mccracken [facility] Internal Medicine Work Phone: Comment on above: Pattern: Regular 11-15-2012 14:01-0500 Respiratory Rate 20 /min Mirella Mccracken [facility] Internal Medicine Work Phone: Comment on above: Pattern: Unlabored 11-15-2012 14:01-0500 Weight 73.14 kg Mirella Mccracken [facility] Internal Medicine Work Phone: 10-25-2012 11:26-0500 BMI (Body Mass Index) 32.74 kg/m2 Mirella Sol[facility] Internal Medicine Work Phone: 10-25-2012 11:26-0500 Body Temperature 98.3 [degF] Mirella Mccracken [facility] Internal Medicine Work Phone: Comment on above: Method: Oral 10-25-2012 11:26-0500 Body weight 73.54 kg Mirella Mccracken [facility] Internal Medicine Work Phone: 10-25-2012 11:26-0500 BP Diastolic 62 mm[Hg] Mirella Mccracken [facility] Internal Medicine Work Phone: Comment on above: Patient Position: Sitting; Cuff Location : Right Arm; Cuff Size: Large 10-25-2012 11:26-0500 BP Systolic 144 mm[Hg] Mirella Mccracken [facility] Work Phone: Comment on above: Patient Position: Sitting; Cuff Location : Right Arm; Cuff Size: Large 10-25-2012 11:26-0500 BSA (Body Surface Area) 1.69 m2 Mirella Mccracken [facility] Work Phone: 10-25-2012 11:26-0500 Height 149.86 cm Mirella Mccracken [facility] Work Phone: 10-25-2012 11:26-0500 Pulse (Heart Rate) 72 /min Mirella Mccracken [facility] Work Phone: Comment on above: Pattern: Regular 10-25-2012 11:26-0500 Respiratory Rate 20 /min Mirella Mccracken [facility] Work Phone: Comment on above: Pattern: Unlabored 10-25-2012 11:26-0500 Weight 73.54 kg Mirella Mccracken [facility] Work Phone: 10-21-2012 09:46-0500 BMI (Body Mass Index) 32.74 kg/m2 Mirella Mccracken [facility] Internal Medicine Work Phone: 10-21-2012 09:46-0500 Body Temperature 97.6 [degF] Mirella Mccracken [facility] Work Phone: Comment on above: Method: Oral 10-21-2012 09:46-0500 Body weight 73.54 kg Mirella Mccracken [facility] Work Phone: 10-21-2012 09:46-0500 BP Diastolic 62 mm[Hg] Mirella Mccracken [facility] Work Phone: Comment on above: Patient Position: Sitting; Cuff Location : Left Arm; Cuff Size: Large 10-21-2012 09:46-0500 BP Systolic 120 mm[Hg] Mirella Mccracken [facility] Work Phone: Comment on above: Patient Position: Sitting; Cuff Location : Left Arm; Cuff Size: Large 10-21-2012 09:46-0500 BSA (Body Surface Area) 1.69 m2 Mirella Mccracken [facility] Work Phone: 10-21-2012 09:46-0500 Height 149.86 cm Mirella Mccracken [facility] Work Phone: 10-21-2012 09:46-0500 Pulse (Heart Rate) 64 /min Mirella Mccracken [facility] Work Phone: Comment on above: Pattern: Regular 10-21-2012 09:46-0500 Respiratory Rate 20 /min Mirella Mccracken [facility] Work Phone: Comment on above: Pattern: Unlabored 10-21-2012 09:46-0500 Weight 73.54 kg Mirella Mccracken [facility] Work Phone: 09-30-2012 09:48-0500 BMI (Body Mass Index) 32.74 kg/m2 Mirella Mccracken [facility] Medicine Work Phone: 09-30-2012 09:48-0500 Body Temperature 98.2 [degF] Mirella Mccracken [facility] Work Phone: Comment on above: Method: Oral 09-30-2012 09:48-0500 Body weight 73.54 kg Mirella Mccracken [facility] Work Phone: 09-30-2012 09:48-0500 BP Diastolic 76 mm[Hg] Mirella Mccracken [facility] Work Phone: Comment on above: Patient Position: Sitting; Cuff Location : Left Arm; Cuff Size: Standard 09-30-2012 09:48-0500 BP Systolic 122 mm[Hg] Mirella Mccracken [facility] Work Phone: Comment on above: Patient Position: Sitting; Cuff Location : Left Arm; Cuff Size: Standard 09-30-2012 09:48-0500 BSA (Body Surface Area) 1.69 m2 Mirella Mccracken [facility] Work Phone: 09-30-2012 09:48-0500 Height 149.86 cm Mirella Mccracken [facility] Work Phone: 09-30-2012 09:48-0500 Pulse (Heart Rate) 58 /min Mirella Mccracken [facility] Work Phone: Comment on above: Pattern: Regular 09-30-2012 09:48-0500 Pulse Oximetry 98 % Mirella Mccracken [facility] Work Phone: Comment on above: Room air 09-30-2012 09:48-0500 Respiratory Rate 16 /min Mirella Mccracken [facility] Work Phone: Comment on above: Pattern: Unlabored 09-30-2012 09:48-0500 Weight 73.54 kg Mirella Mccracken [facility] Work Phone: 09-16-2012 09:47-0500 BMI (Body Mass Index) 32.74 kg/m2 Mirella Mccracken [facility] Medicine Work Phone: 09-16-2012 09:47-0500 Body Temperature 97 [degF] Mirella Mccracken [facility] Work Phone: Comment on above: Method: Oral 09-16-2012 09:47-0500 Body weight 73.54 kg Mirella Mccracken [facility] Work Phone: 09-16-2012 09:47-0500 BP Diastolic 76 mm[Hg] Mirella Mccracken [facility] Work Phone: Comment on above: Patient Position: Sitting; Cuff Location : Left Arm; Cuff Size: Large 09-16-2012 09:47-0500 BP Systolic 128 mm[Hg] Mirella Mccracken [facility] Work Phone: Comment on above: Patient Position: Sitting; Cuff Location : Left Arm; Cuff Size: Large 09-16-2012 09:47-0500 BSA (Body Surface Area) 1.69 m2 Mirella Mccracken [facility] Work Phone: 09-16-2012 09:47-0500 Height 149.86 cm Mirella Mccracken [facility] Work Phone: 09-16-2012 09:47-0500 Pulse (Heart Rate) 72 /min Mirella Mccracken [facility] Work Phone: Comment on above: Pattern: Regular 09-16-2012 09:47-0500 Respiratory Rate 18 /min Mirella Mccracken [facility] Work Phone: Comment on above: Pattern: Unlabored 09-16-2012 09:47-0500 Weight 73.54 kg Mirella Mccracken [facility] Work Phone: 05-27-2012 09:32-0400 Body Temperature 96.9 [degF] Hung Dav[facility] Work Phone: 03-11-2012 13:42-0400 BMI (Body Mass Index) 28.88 kg/m2 Mirella Mccracken [facility] Medicine Work Phone: 03-11-2012 13:42-0400 Body Temperature 97.8 [degF] Mirella Mccracken [facility] Work Phone: 03-11-2012 13:42-0400 Body weight 64.86 kg Mirella Mccracken [facility] Work Phone: 03-11-2012 13:42-0400 BP Diastolic 70 mm[Hg] Mirella Mccracken [facility] Work Phone: Comment on above: Patient Position: Sitting; Cuff Location : Left Arm; Cuff Size: Large 03-11-2012 13:42-0400 BP Systolic 124 mm[Hg] Mirella Mccracken [facility] Work Phone: Comment on above: Patient Position: Sitting; Cuff Location : Left Arm; Cuff Size: Large 03-11-2012 13:42-0400 BSA (Body Surface Area) 1.6 m2 Mirella Mccracken [facility] Work Phone: 03-11-2012 13:42-0400 Height 149.86 cm Mirella Mccracken [facility] Work Phone: 03-11-2012 13:42-0400 Pulse (Heart Rate) 56 /min Mirella Mccracken [facility] Work Phone: Comment on above: Pattern: Regular 03-11-2012 13:42-0400 Respiratory Rate 18 /min Mirella Mccracken [facility] Work Phone: Comment on above: Pattern: Unlabored 03-11-2012 13:42-0400 Weight 64.86 kg Mirella Mccracken [facility] Work Phone: 03-04-2012 12:12-0400 BMI (Body Mass Index) 28.96 kg/m2 Mirella Mccracken [facility] Work Phone: 03-04-2012 12:12-0400 Body weight 65.03 kg Mirella Mccracken [facility] Work Phone: 03-04-2012 12:12-0400 BP Diastolic 62 mm[Hg] Mirella Mccracken [facility] Work Phone: Comment on above: Patient Position: Sitting; Cuff Location : Left Arm; Cuff Size: Large 03-04-2012 12:12-0400 BP Systolic 122 mm[Hg] [facility]: Comment on above: Patient Position: Sitting; Cuff Location : Left Arm; Cuff Size: Large 03-04-2012 12:12-0400 BSA (Body Surface Area) 1.6 m2 Mirella Mccracken [facility] Work Phone: 03-04-2012 12:12-0400 Height 149.86 cm Mirella Mccracken [facility] Work Phone: 03-04-2012 12:12-0400 Pulse (Heart Rate) 60 /min Mirella Mccracken [facility] Work Phone: Comment on above: Pattern: Regular 03-04-2012 12:12-0400 Respiratory Rate 20 /min Mirella Mccracken [facility] Work Phone: Comment on above: Pattern: Unlabored 03-04-2012 12:12-0400 Weight 65.03 kg Mriella Mccracken [facility] Work Phone: 02-25-2012 13:29-0400 BMI (Body Mass Index) 28.96 kg/m2 Mirella Mccracken [facility] Work Phone: 02-25-2012 13:29-0400 Body weight 65.03 kg Mirella Mccracken [facility] Work Phone: 02-25-2012 13:29-0400 BP Diastolic 76 mm[Hg] Mirella Mccracken [facility] Work Phone: Comment on above: Patient Position: Sitting; Cuff Location : Left Arm; Cuff Size: Standard 02-25-2012 13:29-0400 BP Systolic 120 mm[Hg] Mirella Mccracken [facility] Work Phone: Comment on above: Patient Position: Sitting; Cuff Location : Left Arm; Cuff Size: Standard 02-25-2012 13:29-0400 BSA (Body Surface Area) 1.6 m2 Mirella Mccracken [facility] Work Phone: 02-25-2012 13:29-0400 Height 149.86 cm Mirella Mccracken [facility] Work Phone: 02-25-2012 13:29-0400 Pulse (Heart Rate) 68 /min Mirella Mccrcaken [facility] Work Phone: Comment on above: Pattern: Regular 02-25-2012 13:29-0400 Respiratory Rate 20 /min Mirella Mccracken [facility] Work Phone: Comment on above: Pattern: Unlabored 02-25-2012 13:29-0400 Weight 65.03 kg Mirella Mccracken [facility] Work Phone: 01-30-2012 08:0400 BMI (Body Mass Index) 28.96 kg/m2 Mirella Mccracken [facility] Work Phone: 01-30-2012 08:19-0400 Body weight 65.03 kg Mirella Mccracken [facility] Work Phone: 01-30-2012 08:19-0400 BP Diastolic 70 mm[Hg] Mirella Mccracken [facility] Work Phone: Comment on above: Patient Position: Sitting; Cuff Location : Left Arm; Cuff Size: Large 01-30-2012 08:19-0400 BP Systolic 120 mm[Hg] Mirella Mccracken [facility] Work Phone: Comment on above: Patient Position: Sitting; Cuff Location : Left Arm; Cuff Size: Large 01-30-2012 08:190400 BSA (Body Surface Area) 1.6 m2 Mirella Mccracken [facility] Work Phone: 01-30-2012 08:19-0400 Height 149.86 cm Mirella Mccracken [facility] Work Phone: 01-30-2012 08:19-0400 Pulse (Heart Rate) 60 /min Mirella Mccracken [facility] Work Phone: Comment on above: Pattern: Regular 01-30-2012 08:19-0400 Respiratory Rate 18 /min Mirella Mccracken [facility] Work Phone: Comment on above: Pattern: Unlabored 01-30-2012 08:19-0400 Weight 65.03 kg Mirella Mccracken [facility] Work Phone: 01-15-2012 12:06-0400 BMI (Body Mass Index) 28.96 kg/m2 Mirella [facility] Internal Medicine Work Phone: Comment on above: vison with correction ou=20/50 os=20/50 od=20/50hearing wnl 01-15-2012 12:06-0400 Body Temperature 97 [degF] Mirella Mccracken [facility] Work Phone: Comment on above: Method: Oral vison with correctio n ou=20/50 os=20/50 od=20/50hearing [facility] 01-15-2012 12:06-0400 Body weight 65.03 kg [facility] Internal Medicine Work Phone: Comment on above: vison with correction ou=20/50 os=20/50 od=20/50hearing [facility] 01-15-2012 12:06-0400 BP Diastolic 60 mm[Hg] [facility] Work Phone: Comment on above: Patient Position: Sitting; Cuff Location : Left Arm; Cuff Size: Large vison with correctio n ou=20/50 os=20/50 od=20/50hearing [facility] 01-15-2012 12:06-0400 BP Systolic 118 mm[Hg] [facility] Work Phone: Comment on above: Patient Position: Sitting; Cuff Location : Left Arm; Cuff Size: Large vison with correctio n ou=20/50 os=20/50 od=20/50hearing [facility] 01-15-2012 12:06-0400 BSA (Body Surface Area) 1.6 m2 [facility] Internal Medicine Work Phone: Comment on above: vison with correction ou=20/50 os=20/50 od=20/50hearing [facility] 01-15-2012 12:06-0400 Height 149.86 cm [facility] Internal Medicine Work Phone: Comment on above: vison with correction ou=20/50 os=20/50 od=20/50hearing [facility] 01-15-2012 12:06-0400 Pulse (Heart Rate) 68 /min [facility] Internal Medicine Work Phone: Comment on above: Pattern: Regular vison with correctio n ou=20/50 os=20/50 od=20/50hearing [facility] 01-15-2012 12:06-0400 Respiratory Rate 20 /min [facility] Internal Medicine Work Phone: Comment on above: Pattern: Unlabored vison with correctio n ou=20/50 os=20/50 od=20/50hearing [facility] 01-15-2012 12:06-0400 Weight 65.03 kg Mirella Mccracken [facility] Work Phone: Comment on above: vison with correction ou=20/50 os=20/50 od=20/50hearing [facility] 12-31-2011 15:05-0400 BMI (Body Mass Index) 28.88 kg/m2 Mirella Mccracken [facility] Internal Medicine Work Phone: 12-31-2011 15:05-0400 Body weight 64.86 kg Mirella Mccracken [facility] Work Phone: 12-31-2011 15:05-0400 BP Diastolic 78 mm[Hg] Mirella Mccracken [facility] Work Phone: Comment on above: Patient Position: Sitting; Cuff Location : Left Arm; Cuff Size: Large 12-31-2011 15:05-0400 BP Systolic 122 mm[Hg] Mirella Mccracken [facility] Work Phone: Comment on above: Patient Position: Sitting; Cuff Location : Left Arm; Cuff Size: Large 12-31-2011 15:05-0400 BSA (Body Surface Area) 1.6 m2 Mirella Mccracken [facility] Work Phone: 12-31-2011 15:05-0400 Height 149.86 cm Mirella Mccracken [facility] Work Phone: 12-31-2011 15:05-0400 Pulse (Heart Rate) 60 /min Mirella Mccracken [facility] Work Phone: Comment on above: Pattern: Regular 12-31-2011 15:05-0400 Respiratory Rate 18 /min Mirella Mccracken [facility] Work Phone: Comment on above: Pattern: Unlabored 12-31-2011 15:05-0400 Weight 64.86 kg Mirella Mccracken [facility] Work Phone: 12-26-2011 14:17-0400 BP Diastolic 62 mm[Hg] Mirella Mccracken [facility] Work Phone: Comment on above: Patient Position: Sitting; Cuff Location : Left Arm; Cuff Size: Standard 12-26-2011 14:17-0400 BP Systolic 122 mm[Hg] Mirella Mccracken [facility] Work Phone: Comment on above: Patient Position: Sitting; Cuff Location : Left Arm; Cuff Size: Standard 12-26-2011 14:17-0400 Pulse (Heart Rate) 58 /min Mirella Mccracken [facility] Work Phone: Comment on above: Pattern: Regular 12-26-2011 14:17-0400 Pulse Oximetry 98 % Mirella Mccracken [facility] Work Phone: Comment on above: Room air 12-26-2011 13:59-0400 Pulse (Heart Rate) 48 /min Mirella Mccracken [facility] Work Phone: Comment on above: Pattern: Regular 12-26-2011 13:59-0400 Pulse Oximetry 95 % Mirella Mccracken [facility] Work Phone: Comment on above: Room air 12-26-2011 13:13-0400 BMI (Body Mass Index) 29.49 kg/m2 Mirella Mccracken [facility] Medicine Work Phone: 12-26-2011 13:13-0400 Body Temperature 97.8 [degF] Mirella Mccracken [facility] Work Phone: Comment on above: Method: Oral 12-26-2011 13:13-0400 Body weight 66.23 kg Mirella Mccracken [facility] Work Phone: 12-26-2011 13:13-0400 BP Diastolic 68 mm[Hg] Mirella Mccracken [facility] Work Phone: Comment on above: Patient Position: Sitting; Cuff Location : Left Arm; Cuff Size: Standard 12-26-2011 13:13-0400 BP Systolic 114 mm[Hg] Mirella Mccracken [facility] Work Phone: Comment on above: Patient Position: Sitting; Cuff Location : Left Arm; Cuff Size: Standard 12-26-2011 13:13-0400 BSA (Body Surface Area) 1.61 m2 Mirella Mccracken [facility] Work Phone: 12-26-2011 13:130400 Height 149.86 cm Mirella Mccracken [facility] Work Phone: 12-26-2011 13:13-0400 Pulse (Heart Rate) 54 /min Mirella Mccracken [facility] Work Phone: Comment on above: Pattern: Regular 12-26-2011 13:13-0400 Pulse Oximetry 98 % Mirella Mccracken [facility] Work Phone: Comment on above: Room air 12-26-2011 13:13-0400 Respiratory Rate 20 /min Mirella Mccracken [facility] Work Phone: Comment on above: Pattern: Unlabored 12-26-2011 13:13-0400 Weight 66.23 kg Mirella Mccracken [facility] Work Phone: 12-24-2011 14:07-0400 BMI (Body Mass Index) 29.5 kg/m2 Mirella Mccracken [facility] Work Phone: 12-24-2011 14:07-0400 Body weight 66.25 kg Mirella Mccracken [facility] Work Phone: 12-24-2011 14:07-0400 BP Diastolic 60 mm[Hg] Mirella Mccracken [facility] Work Phone: Comment on above: Patient Position: Sitting; Cuff Location : Left Arm; Cuff Size: Large 12-24-2011 14:07-0400 BP Systolic 124 mm[Hg] Mirella Mccracken [facility] Work Phone: Comment on above: Patient Position: Sitting; Cuff Location : Left Arm; Cuff Size: Large 12-24-2011 14:07-0400 BSA (Body Surface Area) 1.61 m2 Mirella Mccracken [facility] Work Phone: 12-24-2011 14:07-0400 Height 149.86 cm Mirella Mccracken [facility] Work Phone: 12-24-2011 14:07-0400 Pulse (Heart Rate) 60 /min Mirella Mccracken [facility] Work Phone: Comment on above: Pattern: Regular 12-24-2011 14:07-0400 Respiratory Rate 18 /min Mirella Mccracken [facility] Work Phone: Comment on above: Pattern: Unlabored 12-24-2011 14:07-0400 Weight 66.25 kg Mirella Mccracken [facility] Work Phone: 12-15-2011 09:30-0400 BMI (Body Mass Index) 29.31 kg/m2 Mirella Mccracken [facility] Work Phone: 12-15-2011 09:30-0400 Body Temperature 97.9 [degF] Mirella Mccracken [facility] Work Phone: Comment on above: Method: Oral 12-15-2011 09:30-0400 Body weight 65.83 kg Mirella Mccracken [facility] Work Phone: 12-15-2011 09:30-0400 BP Diastolic 60 mm[Hg] Mirella Mccracken [facility] Work Phone: Comment on above: Patient Position: Sitting; Cuff Location : Left Arm; Cuff Size: Large 12-15-2011 09:30-0400 BP Systolic 104 mm[Hg] Mirella Mccracken [facility] Work Phone: Comment on above: Patient Position: Sitting; Cuff Location : Left Arm; Cuff Size: Large 12-15-2011 09:30-0400 BSA (Body Surface Area) 1.61 m2 Mirella Mccracken [facility] Work Phone: 12-15-2011 09:30-0400 Height 149.86 cm Mirella Mccracken [facility] Work Phone: 12-15-2011 09:30-0400 Pulse (Heart Rate) 60 /min Mirella Mccracken [facility] Work Phone: Comment on above: Pattern: Regular 12-15-2011 09:30-0400 Respiratory Rate 18 /min Mirella Mccracken [facility] Work Phone: Comment on above: Pattern: Unlabored 12-15-2011 09:30-0400 Weight 65.83 kg Mirella Mccracken [facility] Work Phone: 11-26-2011 11:36-0400 BMI (Body Mass Index) 29.69 kg/m2 Mirella Mccracken [facility] Work Phone: 11-26-2011 11:36-0400 Body Temperature 95.6 [degF] Mirella Mccracken [facility] Work Phone: Comment on above: Method: Oral 11-26-2011 11:36-0400 Body weight 66.68 kg Mirella Mccracken [facility] Work Phone: 11-26-2011 11:36-0400 BP Diastolic 62 mm[Hg] Mirella Mccracken [facility] Work Phone: Comment on above: Patient Position: Sitting; Cuff Location : Left Arm; Cuff Size: Large 11-26-2011 11:36-0400 BP Systolic 118 mm[Hg] Mirella Mccracken [facility] Work Phone: Comment on above: Patient Position: Sitting; Cuff Location : Left Arm; Cuff Size: Large 11-26-2011 11:36-0400 BSA (Body Surface Area) 1.62 m2 Mirella Mccracken [facility] Work Phone: 11-26-2011 11:36-0400 Height 149.86 cm Mirella Mccracken [facility] Work Phone: 11-26-2011 11:36-0400 Pulse (Heart Rate) 64 /min Mirella Mccracken [facility] Work Phone: Comment on above: Pattern: Regular 11-26-2011 11:36-0400 Respiratory Rate 20 /min Mirella Mccracken [facility] Work Phone: Comment on above: Pattern: Unlabored 11-26-2011 11:36-0400 Weight 66.68 kg Mirella Mccracken [facility] Work Phone: 11-12-2011 12:55-0500 BMI (Body Mass Index) 30.51 kg/m2 Mirella [facility] Work Phone: 11-12-2011 12:55-0500 Body weight 68.52 kg Mirella Mccracken [facility] Work Phone: 11-12-2011 12:55-0500 BP Diastolic 60 mm[Hg] Mirella Mccracken [facility] Work Phone: Comment on above: Patient Position: Sitting; Cuff Location : Left Arm; Cuff Size: Large 11-12-2011 12:55-0500 BP Systolic 112 mm[Hg] Mirella Mccracken [facility] Work Phone: Comment on above: Patient Position: Sitting; Cuff Location : Left Arm; Cuff Size: Large 11-12-2011 12:55-0500 BSA (Body Surface Area) 1.64 m2 Mirella Mccracken [facility] Work Phone: 11-12-2011 12:55-0500 Height 149.86 cm Mirella Mccracken [facility] Work Phone: 11-12-2011 12:55-0500 Pulse (Heart Rate) 68 /min Mirella Mccracken [facility] Work Phone: Comment on above: Pattern: Regular 11-12-2011 12:55-0500 Respiratory Rate 20 /min Mirella Mccracken [facility] Work Phone: Comment on above: Pattern: Unlabored 11-12-2011 12:55-0500 Weight 68.52 kg Mirella Mccracken [facility] Work Phone: 11-06-2011 12:18-0500 BMI (Body Mass Index) 30.09 kg/m2 Mirella Sol[facility] Work Phone: 11-06-2011 12:18-0500 Body Temperature 98.1 [degF] Mirella Mccracken [facility] Work Phone: Comment on above: Method: Oral 11-06-2011 12:18-0500 Body weight 67.59 kg Mirella Mccracken [facility] Work Phone: 11-06-2011 12:18-0500 BP Diastolic 70 mm[Hg] Mirella Mccracken [facility] Work Phone: Comment on above: Patient Position: Sitting; Cuff Location : Left Arm; Cuff Size: Large 11-06-2011 12:18-0500 BP Systolic 134 mm[Hg] Mirella Mccracken [facility] Work Phone: Comment on above: Patient Position: Sitting; Cuff Location : Left Arm; Cuff Size: Large 11-06-2011 12:18-0500 BSA (Body Surface Area) 1.63 m2 Mirella Mccracken [facility] Work Phone: 11-06-2011 12:18-0500 Height 149.86 cm Mirella Mccracken [facility] Work Phone: 11-06-2011 12:18-0500 Pulse (Heart Rate) 68 /min Mirella Mccracken [facility] Internal Medicine Work Phone: Comment on above: Pattern: Regular 11-06-2011 12:18-0500 Respiratory Rate 20 /min Mirella Mccracken [facility] Work Phone: Comment on above: Pattern: Unlabored 11-06-2011 12:18-0500 Weight 67.59 kg Mirella Mccracken [facility] Work Phone: 10-21-2011 13:27-0500 Body Temperature 97.9 [degF] Mirella Mccracken [facility] Work Phone: 10-21-2011 13:27-0500 Body weight 67.54 kg Mirella Mccracken [facility] Work Phone: 10-21-2011 13:27-0500 BP Diastolic 92 mm[Hg] Mirella Mccracken [facility] Work Phone: Comment on above: Patient Position: Sitting; Cuff Location : Left Arm; Cuff Size: Standard 10-21-2011 13:27-0500 BP Systolic 152 mm[Hg] Mirella Mccracken [facility] Work Phone: Comment on above: Patient Position: Sitting; Cuff Location : Left Arm; Cuff Size: Standard 10-21-2011 13:27-0500 Pulse (Heart Rate) 99 /min Mirella Mccracken [facility] Work Phone: Comment on above: Pattern: Regular 10-21-2011 13:27-0500 Pulse Oximetry 92 % Mirella Mccracken [facility] Work Phone: Comment on above: Room air 10-21-2011 13:27-0500 Respiratory Rate 17 /min Mirella Mccracken [facility] Work Phone: Comment on above: Pattern: Unlabored 10-21-2011 13:27-0500 Weight 67.54 kg Mirella Mccracken [facility] Work Phone: 06-05-2011 09:34-0400 BMI (Body Mass Index) 30.14 kg/m2 Mirella Mccracken [facility] Internal Medicine Work Phone: 06-05-2011 09:34-0400 Body Temperature 98.5 [degF] Mirella Mccracken [facility] Work Phone: Comment on above: Method: Oral 06-05-2011 09:34-0400 Body weight 67.7 kg Mirella Mccracken [facility] Work Phone: 06-05-2011 09:34-0400 BP Diastolic 78 mm[Hg] Mirella Mccracken [facility] Work Phone: Comment on above: Patient Position: Sitting; Cuff Location : Left Arm; Cuff Size: Large 06-05-2011 09:34-0400 BP Systolic 142 mm[Hg] Mirella Mccracken [facility] Work Phone: Comment on above: Patient Position: Sitting; Cuff Location : Left Arm; Cuff Size: Large 06-05-2011 09:34-0400 BSA (Body Surface Area) 1.63 m2 Mirella Mccracken [facility] Work Phone: 06-05-2011 09:34-0400 Height 149.86 cm Mirella Mccracken [facility] Work Phone: 06-05-2011 09:34-0400 Pulse (Heart Rate) 76 /min Mirella Mccracken [facility] Work Phone: Comment on above: Pattern: Regular 06-05-2011 09:34-0400 Respiratory Rate 20 /min Mirella Mccracken [facility] Work Phone: Comment on above: Pattern: Unlabored 06-05-2011 09:34-0400 Weight 67.7 kg Mirella Mccracken [facility] Work Phone: 05-08-2011 08:10-0400 BMI (Body Mass Index) 28.19 kg/m2 Mirella Mccracken [facility] Medicine Work Phone: 05-08-2011 08:10-0400 Body Temperature 98.7 [degF] Mirella Mccracken [facility] Work Phone: Comment on above: Method: Oral 05-08-2011 08:10-0400 Body weight 63.31 kg Mirella Mccracken [facility] Work Phone: 05-08-2011 08:10-0400 BP Diastolic 78 mm[Hg] Mirella Mccracken [facility] Work Phone: Comment on above: Patient Position: Sitting; Cuff Location : Left Arm; Cuff Size: Standard 05-08-2011 08:10-0400 BP Systolic 142 mm[Hg] Mirella Mccracken [facility] Work Phone: Comment on above: Patient Position: Sitting; Cuff Location : Left Arm; Cuff Size: Standard 05-08-2011 08:10-0400 BSA (Body Surface Area) 1.58 m2 Mirella Mccracken [facility] Work Phone: 05-08-2011 08:10-0400 Height 149.86 cm Mirella Mccracken [facility] Work Phone: 05-08-2011 08:10-0400 Pulse (Heart Rate) 84 /min Mirella Mccracken [facility] Work Phone: Comment on above: Pattern: Regular 05-08-2011 08:10-0400 Respiratory Rate 17 /min Mirella Mccracken [facility] Work Phone: 05-08-2011 08:10-0400 Weight 63.31 kg Mirella Mccracken [facility] Work Phone: 05-07-2011 08:42-0400 BMI (Body Mass Index) 28.19 kg/m2 [facility] Work [facility]: 05-07-2011 08:42-0400 Body Temperature 98 [degF] Mirella Mccracken [facility] Work Phone: Comment on above: Method: Oral 05-07-2011 08:42-0400 Body weight 63.31 kg Mirella Mccracken [facility] Work Phone: 05-07-2011 08:42-0400 BP Diastolic 72 mm[Hg] Mirella Mccracken [facility] Work Phone: Comment on above: Patient Position: Sitting; Cuff Location : Left Arm; Cuff Size: Standard 05-07-2011 08:42-0400 BP Systolic 132 mm[Hg] Mirella Mccracken [facility] Work Phone: Comment on above: Patient Position: Sitting; Cuff Location : Left Arm; Cuff Size: Standard 05-07-2011 08:42-0400 BSA (Body Surface Area) 1.58 m2 Mirella Mccracken [facility] Work Phone: 05-07-2011 08:42-0400 Height 149.86 cm Mirella Mccracken [facility] Work Phone: 05-07-2011 08:42-0400 Pulse (Heart Rate) 82 /min Mirella Mccracken [facility] Work Phone: Comment on above: Pattern: Regular 05-07-2011 08:42-0400 Respiratory Rate 18 /min Mirella Mccracken [facility] Work Phone: Comment on above: Pattern: Unlabored 05-07-2011 08:42-0400 Weight 63.31 kg Mirella Mccracken [facility] Work Phone: 05-06-2011 16:25-0400 BP Diastolic 82 mm[Hg] Mirella Mccracken [facility] Work Phone: Comment on above: Patient Position: Supine; Cuff Location: Right Arm; Cuff Size: Standard 05-06-2011 16:25-0400 BP Systolic 146 mm[Hg] Mirella Mccracken [facility] Work Phone: Comment on above: Patient Position: Supine; Cuff Location: Right Arm; Cuff Size: Standard 05-06-2011 16:25-0400 Pulse (Heart Rate) 76 /min Mirella Mccracken [facility] Work Phone: Comment on above: Pattern: Regular 11-06-2010 12:10-0500 BMI (Body Mass Index) 28.19 kg/m2 Mirella Mccracken [facility] Internal Medicine Work Phone: 11-06-2010 12:10-0500 Body Temperature 97.3 [degF] Mirella Mccracken [facility] Work Phone: Comment on above: Method: Oral 11-06-2010 12:10-0500 Body weight 63.31 kg Mirella Mccracken [facility] Work Phone: 11-06-2010 12:10-0500 BP Diastolic 82 mm[Hg] [facility] Work [facility]: Comment on above: Patient Position: Sitting; Cuff Location : Left Arm; Cuff Size: Standard 11-06-2010 12:10-0500 BP Systolic 144 mm[Hg] Mirella Mccracken [facility] Work Phone: Comment on above: Patient Position: Sitting; Cuff Location : Left Arm; Cuff Size: Standard 11-06-2010 12:10-0500 BSA (Body Surface Area) 1.58 m2 Mirella Mccracken [facility] Work Phone: 11-06-2010 12:10-0500 Height 149.86 cm Mirella Mccracken [facility] Work Phone: 11-06-2010 12:10-0500 Pulse (Heart Rate) 76 /min Mirella Mccracken [facility] Work Phone: Comment on above: Pattern: Regular 11-06-2010 12:10-0500 Respiratory Rate 18 /min Mirella Mccracken [facility] Work Phone: Comment on above: Pattern: Unlabored 11-06-2010 12:10-0500 Weight 63.31 kg Mirella Mccracken [facility] Work Phone: 11-04-2010 09:00-0500 BMI (Body Mass Index) 28.19 kg/m2 Mirella Mccracken [facility] Internal Medicine Work Phone: 11-04-2010 09:00-0500 Body weight 63.31 kg Mirella Mccracken [facility] Work Phone: 11-04-2010 09:00-0500 BP Diastolic 72 mm[Hg] Mirella Mccracken [facility] Work Phone: Comment on above: Patient Position: Sitting; Cuff Location : Left Arm; Cuff Size: Standard 11-04-2010 09:00-0500 BP Systolic 122 mm[Hg] Mirella Mccracken [facility] Work Phone: Comment on above: Patient Position: Sitting; Cuff Location : Left Arm; Cuff Size: Standard 11-04-2010 09:00-0500 BSA (Body Surface Area) 1.58 m2 Mirella Mccrakcen [facility] Work Phone: 11-04-2010 09:00-0500 Height 149.86 cm Mirella Mccracken [facility] Work Phone: 11-04-2010 09:00-0500 Pulse (Heart Rate) 62 /min Mirella Mccracken [facility] Work Phone: Comment on above: Pattern: Regular 11-04-2010 09:00-0500 Respiratory Rate 16 /min Mirella Mccracken [facility] Work Phone: Comment on above: Pattern: Unlabored 11-04-2010 09:00-0500 Weight 63.31 kg Mirella Mccracken [facility] Work Phone: 10-14-2010 09:31-0500 BMI (Body Mass Index) 28.19 kg/m2 [facility] Work Phone: 10-14-2010 09:31-0500 Body weight 63.31 kg Mirella Mccracken [facility] Work Phone: 10-14-2010 09:31-0500 BP Diastolic 70 mm[Hg] Mirella Mccracken [facility] Work Phone: Comment on above: Patient Position: Sitting; Cuff Location : Left Arm; Cuff Size: Large 10-14-2010 09:31-0500 BP Systolic 132 mm[Hg] Mirella Mccracken [facility] Work Phone: Comment on above: Patient Position: Sitting; Cuff Location : Left Arm; Cuff Size: Large 10-14-2010 09:31-0500 BSA (Body Surface Area) 1.58 m2 Mirella Mccracken [facility] Work Phone: 10-14-2010 09:31-0500 Height 149.86 cm Mirella Mccracken [facility] Work Phone: 10-14-2010 09:31-0500 Pulse (Heart Rate) 72 /min Mirella Mccracken [facility] Work Phone: Comment on above: Pattern: Regular 10-14-2010 09:31-0500 Respiratory Rate 20 /min Mirella Mccracken [facility] Work Phone: Comment on above: Pattern: Unlabored 10-14-2010 09:31-0500 Weight 63.31 kg Mirella Mccracken [facility] Work Phone: 07-17-2010 08:52-0400 BMI (Body Mass Index) 29.73 kg/m2 Mirella Mccracken [facility] Internal Medicine Work Phone: 07-17-2010 08:52-0400 Body weight 66.76 kg Mirella Mccracken [facility] Work Phone: 07-17-2010 08:52-0400 BP Diastolic 78 mm[Hg] Mirella Mccracken [facility] Work Phone: Comment on above: Patient Position: Sitting; Cuff Location : Left Arm; Cuff Size: Large 07-17-2010 08:52-0400 BP Systolic 138 mm[Hg] [facility] Work [facility]: Comment on above: Patient Position: Sitting; Cuff Location : Left Arm; Cuff Size: Large 07-17-2010 08:52-0400 BSA (Body Surface Area) 1.62 m2 Mirella Mccracken [facility] Work Phone: 07-17-2010 08:52-0400 Height 149.86 cm Mirella Mccracken [facility] Work Phone: 07-17-2010 08:52-0400 Pulse (Heart Rate) 60 /min Mirella Mccracken [facility] Work Phone: Comment on above: Pattern: Regular 07-17-2010 08:52-0400 Respiratory Rate 20 /min Mirella Mccracken [facility] Work Phone: Comment on above: Pattern: Unlabored 07-17-2010 08:52-0400 Weight 66.76 kg Mirella Mccracken [facility] Work Phone: 06-17-2010 10:04-0400 BMI (Body Mass Index) 29.6 kg/m2 Mirella Mccracken [facility] Work Phone: 06-17-2010 10:04-0400 Body weight 66.48 kg Mirella Mccracken [facility] Work Phone: 06-17-2010 10:04-0400 BP Diastolic 70 mm[Hg] [facility] Work [facility]: Comment on above: Patient Position: Sitting; Cuff Location : Left Arm; Cuff Size: Large 06-17-2010 10:04-0400 BP Systolic 122 mm[Hg] Mirella Mccracken [facility] Work Phone: Comment on above: Patient Position: Sitting; Cuff Location : Left Arm; Cuff Size: Large 06-17-2010 10:04-0400 BSA (Body Surface Area) 1.62 m2 Mirella Mccracken [facility] Work Phone: 06-17-2010 10:04-0400 Height 149.86 cm [facility] Work [facility]: 06-17-2010 10:04-0400 Pulse (Heart Rate) 68 /min Mirella Mccracken [facility] Work Phone: Comment on above: Pattern: Regular 06-17-2010 10:04-0400 Respiratory Rate 20 /min Mirella Mccracken [facility] Work Phone: Comment on above: Pattern: Unlabored 06-17-2010 10:04-0400 Weight 66.48 kg Mirella Mccracken [facility] Work Phone: 01-25-2010 13:25-0400 Body weight 66.91 kg Mirella Mccracken [facility] Work Phone: 01-25-2010 13:25-0400 BP Diastolic 76 mm[Hg] Mirella Mccracken [facility] Work Phone: Comment on above: Patient Position: Sitting; Cuff Location : Left Arm; Cuff Size: Standard 01-25-2010 13:25-0400 BP Systolic 132 mm[Hg] Mirella Mccracken [facility] Work Phone: Comment on above: Patient Position: Sitting; Cuff Location : Left Arm; Cuff Size: Standard 01-25-2010 13:25-0400 Pulse (Heart Rate) 68 /min Mirella Mccracken [facility] Work Phone: Comment on above: Pattern: Regular 01-25-2010 13:25-0400 Respiratory Rate 18 /min Mirella Mccracken [facility] Work Phone: Comment on above: Pattern: Unlabored 01-25-2010 13:25-0400 Weight 66.91 kg Mirella Mccracken [facility] Work Phone: 12-13-2009 11:12-0400 BMI (Body Mass Index) 29.32 kg/m2 Mirella Mccracken [facility] Work Phone: 12-13-2009 11:12-0400 Body weight 65.86 kg Mirella Mccracken [facility] Work Phone: 12-13-2009 11:12-0400 BP Diastolic 78 mm[Hg] [facility] Work Phone: Comment on above: Patient Position: Sitting; Cuff Location : Left Arm; Cuff Size: Large 12-13-2009 11:12-0400 BP Systolic 118 mm[Hg] Mirella Mccracken [facility] Work Phone: Comment on above: Patient Position: Sitting; Cuff Location : Left Arm; Cuff Size: Large 12-13-2009 11:12-0400 BSA (Body Surface Area) 1.61 m2 Mirella Mccracken [facility] Work Phone: 12-13-2009 11:12-0400 Height 149.86 cm Mirella Mccracken [facility] Work Phone: 12-13-2009 11:12-0400 Pulse (Heart Rate) 64 /min Mirella Mccracken [facility] Work Phone: Comment on above: Pattern: Regular 12-13-2009 11:12-0400 Respiratory Rate 20 /min Mirella Mccracken [facility] Work Phone: Comment on above: Pattern: Unlabored 12-13-2009 11:12-0400 Weight 65.86 kg Mirella Mccracken [facility] Work Phone: 10-03-2009 11:50-0500 BMI (Body Mass Index) 27.37 kg/m2 Mirella Mccracken [facility] Work Phone: 10-03-2009 11:50-0500 Body weight 61.46 kg Mirella Mccracken [facility] Work Phone: 10-03-2009 11:50-0500 BP Diastolic 78 mm[Hg] Mirella Mccracken [facility] Work Phone: Comment on above: Patient Position: Sitting; Cuff Location : Left Arm; Cuff Size: Large 10-03-2009 11:50-0500 BP Systolic 120 mm[Hg] [facility] Work [facility]: Comment on above: Patient Position: Sitting; Cuff Location : Left Arm; Cuff Size: Large 10-03-2009 11:50-0500 BSA (Body Surface Area) 1.56 m2 [facility] Work Phone: 10-03-2009 11:50-0500 Height 149.86 cm Mirella Mccracken [facility] Work Phone: 10-03-2009 11:50-0500 Pulse (Heart Rate) 64 /min Mirella Mccracken [facility] Work Phone: Comment on above: Pattern: Regular 10-03-2009 11:50-0500 Respiratory Rate 20 /min Mirella Mccracken [facility] Work Phone: Comment on above: Pattern: Unlabored 10-03-2009 11:50-0500 Weight 61.46 kg Mirella Mccracken [facility] Work Phone: 01-17-2009 07:54-0400 BMI (Body Mass Index) 27.37 kg/m2 Mirella Mccracken [facility] Work Phone: 01-17-2009 07:54-0400 Body weight 61.46 kg Mirella Mccracken [facility] Work Phone: 01-17-2009 07:54-0400 BP Diastolic 60 mm[Hg] Mirella Mccracken [facility] Work Phone: Comment on above: Patient Position: Sitting; Cuff Location : Left Arm; Cuff Size: Large 01-17-2009 07:54-0400 BP Systolic 112 mm[Hg] Mirella Mccracken [facility] Work Phone: Comment on above: Patient Position: Sitting; Cuff Location : Left Arm; Cuff Size: Large 01-17-2009 07:54-0400 BSA (Body Surface Area) 1.56 m2 Mirella Mccracken [facility] Work Phone: 01-17-2009 07:54-0400 Head Circumference 0 cm Mirella Mccracken [facility] Work Phone: 01-17-2009 07:54-0400 Height 149.86 cm Mirella Mccracken [facility] Work Phone: 01-17-2009 07:54-0400 Pulse (Heart Rate) 64 /min Mirella Mccracken [facility] Work Phone: Comment on above: Pattern: Regular 01-17-2009 07:54-0400 Respiratory Rate 20 /min Mirella Mccracken [facility] Work Phone: Comment on above: Pattern: Unlabored 01-17-2009 07:54-0400 Weight 61.46 kg Mirella Mccracken [facility] Work Phone: 01-12-2009 07:52-0400 BMI (Body Mass Index) 27.37 kg/m2 Mirella Mccracken [facility] Work Phone: 01-12-2009 07:52-0400 Body weight 61.46 kg Mirella Mccracken [facility] Work Phone: 01-12-2009 07:52-0400 BP Diastolic 78 mm[Hg] Mirella Mccracken [facility] Work Phone: Comment on above: Patient Position: Sitting; Cuff Location : Left Arm; Cuff Size: Large 01-12-2009 07:52-0400 BP Systolic 122 mm[Hg] Mirella Mccracken [facility] Work Phone: Comment on above: Patient Position: Sitting; Cuff Location : Left Arm; Cuff Size: Large 01-12-2009 07:52-0400 BSA (Body Surface Area) 1.56 m2 Mirella Mccracken [facility] Work Phone: 01-12-2009 07:52-0400 Head Circumference 0 cm Mirella Mccracken [facility] Work Phone: 01-12-2009 07:52-0400 Height 149.86 cm Mirella Mccracken [facility] Work Phone: 01-12-2009 07:52-0400 Pulse (Heart Rate) 72 /min Mirella Mccracken [facility] Work Phone: Comment on above: Pattern: Regular 01-12-2009 07:52-0400 Respiratory Rate 18 /min Mirella Mccracken [facility] Work Phone: Comment on above: Pattern: Unlabored 01-12-2009 07:52-0400 Weight 61.46 kg Mirella Mccracken [facility] Work Phone: 01-02-2009 09:31-0400 BMI (Body Mass Index) 27.37 kg/m2 Mirella [facility] Work Phone: 01-02-2009 09:31-0400 Body weight 61.46 kg Mirella Mccracken [facility] Work Phone: 01-02-2009 09:31-0400 BP Diastolic 78 mm[Hg] Mirella Mccracken [facility] Work Phone: Comment on above: Patient Position: Sitting; Cuff Location : Left Arm; Cuff Size: Large 01-02-2009 09:31-0400 BP Systolic 138 mm[Hg] Mirella Mccracken [facility] Work Phone: Comment on above: Patient Position: Sitting; Cuff Location : Left Arm; Cuff Size: Large 01-02-2009 09:31-0400 BSA (Body Surface Area) 1.56 m2 Mirella Mccracken [facility] Work Phone: 01-02-2009 09:31-0400 Head Circumference 0 cm Mirella Mccracken [facility] Work Phone: 01-02-2009 09:31-0400 Height 149.86 cm Mirella Mccracken [facility] Work Phone: 01-02-2009 09:31-0400 Pulse (Heart Rate) 72 /min Mirella Mccracken [facility] Work Phone: Comment on above: Pattern: Regular 01-02-2009 09:31-0400 Respiratory Rate 20 /min Mirella Mccracken [facility] Work Phone: Comment on above: Pattern: Unlabored 01-02-2009 09:31-0400 Weight 61.46 kg Mirella Mccracken [facility] Work Phone: 12-07-2008 09:40-0400 BMI (Body Mass Index) 27.28 kg/m2 Mirella [facility] Work Phone: Comment on above: vision with correction OD= 20/50 OS=20/5 0 OU=20/50 12-07-2008 09:40-0400 Body weight 61.26 kg [facility] Work Phone: Comment on above: vision with correction OD= 20/50 OS=20/5 0 OU=20/50 12-07-2008 09:40-0400 BP Diastolic 78 mm[Hg] [facility] Work Phone: Comment on above: Patient Position: Sitting; Cuff Location : Left Arm; Cuff Size: Large vision with correcti on OD= 20/50 OS=20/50 OU=20/50 12-07-2008 09:40-0400 BP Systolic 122 mm[Hg] [facility] Work Phone: Comment on above: Patient Position: Sitting; Cuff Location : Left Arm; Cuff Size: Large vision with correcti on OD= 20/50 OS=20/50 OU=20/50 12-07-2008 09:40-0400 BSA (Body Surface Area) 1.56 m2 [facility] Work Phone: Comment on above: vision with correction OD= 20/50 OS=20/5 0 OU=20/50 12-07-2008 09:40-0400 Head Circumference 0 cm [facility] Work Phone: Comment on above: vision with correction OD= 20/50 OS=20/5 0 OU=20/50 12-07-2008 09:40-0400 Height 149.86 cm [facility] Work Phone: Comment on above: vision with correction OD= 20/50 OS=20/5 0 OU=20/50 12-07-2008 09:40-0400 Pulse (Heart Rate) 72 /min [facility] Work Phone: Comment on above: Pattern: Regular vision with correcti on OD= 20/50 OS=20/50 OU=20/50 12-07-2008 09:40-0400 Respiratory Rate 20 /min [facility] Work Phone: Comment on above: Pattern: Unlabored vision with correcti on OD= 20/50 OS=20/50 OU=20/50 12-07-2008 09:40-0400 Weight 61.26 kg [facility] Work [facility]: Comment on above: vision with correction OD= 20/50 OS=20/5 0 OU=20/50 10-04-2008 09:20-0500 BMI (Body Mass Index) 26.31 kg/m2 Mirella Mccracken [facility] Medicine Work Phone: 10-04-2008 09:20-0500 Body weight 59.08 kg Mirella Mccracken [facility] Work Phone: 10-04-2008 09:20-0500 BP Diastolic 76 mm[Hg] Mirella [facility] Work Phone: Comment on above: Patient Position: Sitting; Cuff Location : Left Arm; Cuff Size: Large 10-04-2008 09:20-0500 BP Systolic 124 mm[Hg] Mirella [facility] Work Phone: Comment on above: Patient Position: Sitting; Cuff Location : Left Arm; Cuff Size: Large 10-04-2008 09:20-0500 BSA (Body Surface Area) 1.54 m2 [facility] Work Phone: 10-04-2008 09:20-0500 Head Circumference 0 cm Mirella [facility] Work Phone: 10-04-2008 09:20-0500 Height 149.86 cm Mirella [facility] [facility] Work Phone: 10-04-2008 09:20-0500 Pulse (Heart Rate) 72 /min Mirella [facility] Work Phone: Comment on above: Pattern: Regular 10-04-2008 09:20-0500 Respiratory Rate 20 /[facility] Work [facility]: Comment on above: Pattern: Unlabored 10-04-2008 09:20-0500 Weight 59.08 kg Mirella [facility] Work Phone: 09-21-2008 14:19-0500 BMI (Body Mass Index) 26.9 kg/m2 Mirella [facility] Medicine Work Phone: 09-21-2008 14:19-0500 Body weight 60.41 kg Mirella Mccracken [facility] Internal Medicine Work Phone: 09-21-2008 14:19-0500 BP Diastolic 80 mm[Hg] Mirella Mccracken [facility] Internal Medicine Work Phone: Comment on above: Patient Position: Sitting; Cuff Location : Left Arm; Cuff Size: Standard 09-21-2008 14:19-0500 BP Systolic 142 mm[Hg] Mirella Mccracken [facility] Internal Medicine Work Phone: Comment on above: Patient Position: Sitting; Cuff Location : Left Arm; Cuff Size: Standard 09-21-2008 14:19-0500 BSA (Body Surface Area) 1.55 m2 Mirella Mccracken [facility] Internal Medicine Work Phone: 09-21-2008 14:19-0500 Head Circumference 0 cm Mirella Mccracken [facility] Medicine Work Phone: 09-21-2008 14:19-0500 Height 149.86 cm Mirella Mccracken [facility] Medicine Work Phone: 09-21-2008 14:19-0500 Pulse (Heart Rate) 64 /min Mirella Mccracken [facility] Internal Medicine Work Phone: Comment on above: Pattern: Regular 09-21-2008 14:19-0500 Respiratory Rate 20 /min Mirella Mccracken [facility] Internal Medicine Work Phone: Comment on above: Pattern: Unlabored 09-21-2008 14:19-0500 Weight 60.41 kg Mirella Mccracken [facility] Internal Medicine Work Phone: 08-24-2008 13:56-0500 BMI (Body Mass Index) 26.9 kg/m2 Mirella [facility] Internal Medicine Work Phone: 08-24-2008 13:56-0500 Body weight 60.41 kg Mirella Mccracken [facility] Internal Medicine Work Phone: 08-24-2008 13:56-0500 BP Diastolic 88 mm[Hg] Mirella Mccracken [facility] Internal Medicine Work Phone: Comment on above: Patient Position: Sitting; Cuff Location : Left Arm; Cuff Size: Standard 08-24-2008 13:56-0500 BP Systolic 142 mm[Hg] Mirella Mccracken [facility] Internal Medicine Work Phone: Comment on above: Patient Position: Sitting; Cuff Location : Left Arm; Cuff Size: Standard 08-24-2008 13:56-0500 BSA (Body Surface Area) 1.55 m2 Mirella Mccracken [facility] Internal Medicine Work Phone: 08-24-2008 13:56-0500 Head Circumference 0 cm Mirella Mccracken [facility] Medicine Work Phone: 08-24-2008 13:56-0500 Height 149.86 cm Mirella Mccracken [facility] Internal Medicine Work Phone: 08-24-2008 13:56-0500 Pulse (Heart Rate) 80 /min Mirella Mccracken [facility] Internal Medicine Work Phone: Comment on above: Pattern: Regular 08-24-2008 13:56-0500 Respiratory Rate 20 /min Mirella Mccracken [facility] Internal Medicine Work Phone: Comment on above: Pattern: Unlabored 08-24-2008 13:56-0500 Weight 60.41 kg Mirella Mccracken [facility] Internal Medicine Work Phone: 06-28-2008 14:04-0400 BMI (Body Mass Index) 26.93 kg/m2 Mirella Mccracken [facility] Internal Medicine Work Phone: 06-28-2008 14:04-0400 Body weight 60.47 kg Mirella Mccracken [facility] Internal Medicine Work Phone: 06-28-2008 14:04-0400 BP Diastolic 78 mm[Hg] Mirella Mccracken [facility] Internal Medicine Work Phone: Comment on above: Patient Position: Sitting; Cuff Location : Left Arm; Cuff Size: Standard 06-28-2008 14:04-0400 BP Systolic 140 mm[Hg] Mirella Mccracken [facility] Internal Medicine Work Phone: Comment on above: Patient Position: Sitting; Cuff Location : Left Arm; Cuff Size: Standard 06-28-2008 14:04-0400 BSA (Body Surface Area) 1.55 m2 Mirella [facility] Work Phone: 06-28-2008 14:04-0400 Head Circumference 0 cm Mirella Mccracken [facility] Internal Medicine Work Phone: 06-28-2008 14:04-0400 Height 149.86 cm Mirella Mccracken [facility] Internal Medicine Work Phone: 06-28-2008 14:04-0400 Pulse (Heart Rate) 68 /min Mirella [facility] Work Phone: Comment on above: Pattern: Regular 06-28-2008 14:04-0400 Respiratory Rate 16 /min Mirella Mccracken [facility] Internal Medicine Work Phone: Comment on above: Pattern: Unlabored 06-28-2008 14:04-0400 Weight 60.47 kg Mirella Mccracken [facility] Internal Medicine Work Phone: Encounters Encounter Date Encounter Type Care Provider Facility Start: 03-14-2025 ambulatory Yesika VICENTE Fa cility:[facility] Start: 03-14-2025 Registered Referred Yesika GREENE Magdaleno Start: 03-06-2025 Registered Referred Yesika Dolan Start: 03-06-2025 End: 03-06-[address] Yesika Faust MD Work Phone: [facility] Start: 03-06-2025 End: 03-06-2025 Patient encounter procedure Zeina Balbuena NP-Lio -[facility] Work Phone: Start: 02-27-2025 ambulatory Yesika VICENTE Fa cility:[facility] Start: 02-27-2025 Registered Referred Yesika Dolan Start: 02-23-2025 End: 02-23-[address] Yesika Faust MD Work Phone: [facility] Start: 02-23-2025 End: 02-23-2025 Patient encounter procedure Miguel Saldivar TRUDY [facility] Work Phone: Start: 02-13-2025 ambulatory Yesika VICENTE Fa cility:[facility] Start: 02-13-2025 Registered Referred Yesika Dolan Start: 01-31-2025 End: 01-31-[address] Yesika Faust MD Work Phone: [facility] Start: 01-31-2025 End: 01-31-[address] Yesika Faust MD -[facility] Work Phone: Start: 01-23-2025 ambulatory Yesika Masoni ty:[facility] Start: 01-23-2025 Registered Referred Zeina Dolan Start: 01-18-2025 End: 01-18-2025 Departed Referred Yesika Dolan Start: 01-18-2025 Registered Referred Yesika Dolan Start: 01-18-2025 End: 01-18-2025 ambulatory Yesika VICENTE Facility:[facility] Start: 01-14-2025 End: 01-14-[address] Yesika Faust MD Work Phone: [facility] Work Phone: Start: 01-14-2025 End: 01-14-2025 Departed Referred Yesika Dolan Start: 01-14-2025 End: 01-14-2025 ambulatory Yesika VICENTE Facility:[facility] Start: 01-12-2025 End: 01-12-[address] Yesika Faust MD Work Phone: [facility] Work Phone: Start: 01-12-2025 End: 01-12-2025 Departed Referred Yesika Dolan Start: 01-12-2025 Registered Referred Yesika Dolan Start: 01-12-2025 End: 01-12-2025 ambulatory Yesika VICENTE Facility:[facility] Start: 12-16-2024 End: 12-16-[address] Yesika Faust MD Work Phone: [facility] Work Phone: Start: 12-16-2024 End: 12-16-2024 Patient encounter procedure Zeina Balbuena [facility] Work Phone: Start: 12-14-2024 End: 12-14-[address] Yesika Faust MD Work Phone: [facility] Work Phone: Start: 12-14-2024 End: 12-14-2024 Departed Referred Yesika DasSoniya Dolan Start: 12-14-2024 Registered Referred Yesika DasSoniya Magdaleno Start: 12-14-2024 End: 12-14-2024 ambulatory Efky Faust OLS Facility:[facility] Start: 11-15-2024 End: 11-15-2024 ambulatory Efky Faust Facility:[facility] Start: 11-15-2024 End: 11-15-[address] Yesika Faust MD -[facility] Work Phone: Start: 11-14-2024 End: 11-14-[address] Yesika Faust MD Work Phone: [facility] Work Phone: Start: 11-14-2024 End: 11-14-2024 Departed Referred Yesika Dolan Start: 11-14-2024 End: 11-14-2024 ambulatory Efewongbe Sammye OLS Facility:[facility] Start: 10-27-2024 End: 10-27-2024 ambulatory Efewongbe Sammye Facility:[facility] Start: 10-27-2024 End: 10-27-2024 Patient encounter procedure Miguel YATES -[facility] Work Phone: Start: 10-17-2024 ambulatory Efewongbe Sammye OLS Fa cility:[facility] Start: 10-17-2024 Registered Referred Yesika Dolan Start: 10-14-2024 ambulatory Efewongbe Sammye OLS Fa cility:[facility] Start: 10-14-2024 Registered Referred Yesika Dolan Start: 09-20-2024 End: 09-20-2024 ambulatory Efenriquetaongbe Sammye Facility:[facility] Start: 09-20-2024 End: 09-20-[address] Yesika Faust MD -[facility] Work Phone: Start: 09-16-2024 ambulatory Efenriquetaongbe Sammye OLS Fa cility:[facility] Start: 09-16-2024 Registered Referred Yesika Dolan Start: 08-16-2024 End: 08-16-2024 Departed Referred Yesika Dolan Start: 08-16-2024 End: 08-16-2024 ambulatory Efewongbe Sammye OLS Facility:[facility] Start: 08-09-2024 End: 08-09-2024 ambulatory Efewongbe Olekathiee Facility:[facility] Start: 08-04-2024 End: 08-04-2024 ambulatory Zeina Balbuena NP Facility:[facility] Start: 08-04-2024 End: 08-04-2024 ambulatory Efewongbe Sammye OLS Facility:[facility] Start: 08-02-2024 End: 08-02-2024 ambulatory Efewongbe Oleghe OLS Facility:[facility] Start: 07-28-2024 End: 07-28-2024 ambulatory Zeina Heiditon [employer] Facility:[facility] Start: 07-04-2024 End: 07-04-2024 ambulatory Efewongbe Oleghe Facility:[facility] Start: 06-27-2024 End: 06-27-2024 ambulatory Efewongbe Oleghe Facility:[facility] Start: 06-06-2024 End: 06-06-2024 ambulatory Efewongbe Oleghe Facility:[facility] Start: 05-27-2024 End: 05-27-2024 ambulatory Efewongbe Oleghe OLS Facility:[facility] Start: 05-17-2024 End: 05-17-2024 ambulatory Efewongbe Oleghe Facility:[facility] Start: 05-17-2024 End: 05-17-2024 ambulatory Efewongbe Oleghe OLS Facility:[facility] Start: 05-06-2024 End: 05-06-2024 ambulatory Zeina Heiditon MOTEL MANAGER Facility:[facility] Start: 04-29-2024 End: 04-29-2024 ambulatory Zeina Heiditon [employer]EL MANAGER Facility:[facility] Start: 04-29-2024 ambulatory Zeina Esha OLS Fac ility:[facility] Start: 04-14-2024 End: 04-14-2024 ambulatory Efewongbe Oleghe Facility:[facility] Start: 04-04-2024 End: 04-04-2024 ambulatory Zeinawhitney Balbuena MOTEL MANAGER Facility:[facility] Start: 12-22-2023 End: 12-22-[address] Cl Tsang Work Phone: [facility] Work Phone: Start: 11-30-2023 End: 11-30-[address] Cl Tsang Work Phone: [facility] Work Phone: Start: 11-17-2023 End: 11-17-[address] Cl Tsang Work Phone: [facility] Work Phone: Start: 11-17-2023 End: 11-17-[address] Cl Tsang Work Phone: [facility] Start: 10-20-2023 End: 10-20-[address] Cl Tsang Work Phone: [facility] Work Phone: Start: 10-08-2023 End: 10-08-[address] Cl Tsang Work Phone: [facility] Work Phone: Start: 08-25-2023 End: 08-25-[address] Cl Tsang Work Phone: [facility] Work Phone: Start: 08-18-2023 End: 08-18-[address] Cl Tsang Work Phone: [facility] Work Phone: Start: 08-18-2023 End: 08-18-[address] Cl Tsang Work Phone: [facility] Start: 06-30-2023 End: 06-30-[address] Cl Tsang Work Phone: [facility] Work Phone: Start: 06-08-2023 End: 06-08-[address] Cl Tsang Work Phone: [facility] Work Phone: Start: 06-04-2023 End: 06-04-[address] Cl Tsang Work Phone: [facility] Work Phone: Start: 05-28-2023 End: 05-28-[address] Cl Tsang Work Phone: [facility] Work Phone: Start: 05-21-2023 End: 05-21-[address] Cl Tsang Work Phone: [facility] Work Phone: Start: 05-19-2023 End: 05-19-[address] Cl Tsang Work Phone: [facility] Start: 05-13-2023 End: 05-13-[address] Cl Tsang Work Phone: [facility] Work Phone: Start: 04-09-2023 End: 04-09-[address] Cl Tsang Work Phone: [facility] Work Phone: Start: 04-07-2023 End: 04-07-[address] Cl Tsang Work Phone: [facility] Work Phone: Start: 02-17-2023 End: 02-17-[address] Cl Tsang Work Phone: [facility] Work Phone: Start: 02-17-2023 End: 02-17-[address] Cl Tsang Work Phone: [facility] Work Phone: Start: 02-17-2023 End: 02-17-[address] Cl Tsang Work Phone: [facility] Start: 02-10-2023 End: 02-10-[address] Cl Tsang Work Phone: [facility] Work Phone: Start: 01-12-2023 End: 01-12-[address] Cl Tsang Work Phone: [facility] Work Phone: Start: 01-12-2023 End: 01-12-[address] Cl Tsang Work Phone: [facility] Start: 12-29-2022 End: 12-29-[address] Cl Tsang Work Phone: [facility] Start: 12-23-2022 End: 12-23-[address] Cl Tsang Work Phone: [facility] Start: 12-05-2022 End: 12-05-[address] Cl Tsang Work Phone: [facility] Start: 11-18-2022 End: 11-18-[address] Cl Tsang Work Phone: [facility] Work Phone: Start: 11-18-2022 End: 11-18-[address] Cl Tsang Work Phone: [facility] Start: 10-28-2022 End: 10-28-[address] Cl Tsang Work Phone: [facility] Start: 10-17-2022 End: 10-17-[address] Cl Tsang Work Phone: [facility] Start: 10-08-2022 End: 10-08-[address] Cl Tsang Work Phone: [facility] Start: 09-01-2022 End: 09-01-[address] Cl Tsang Work Phone: [facility] Start: 08-19-2022 End: 08-19-[address] Cl Tsang Work Phone: [facility] Work Phone: Start: 08-19-2022 End: 08-19-[address] Cl Tsang Work Phone: [facility] Start: 07-29-2022 End: 07-29-[address] Cl Tsang Work Phone: [facility] Start: 05-29-2022 End: 05-30-[address] Cl Tsang Work Phone: [facility] Start: 05-20-2022 End: 05-20-[address] Cl Tsang Work Phone: [facility] Work Phone: Start: 05-20-2022 End: 05-20-[address] Cl Tsang Work Phone: [facility] Start: 04-18-2022 End: 04-18-[address] Cl Tsang Work Phone: [facility] Start: 03-07-[address] Cl herrera Work Phone: [facility] Start: 01-13-2022 End: 01-13-[address] Cl Tsang Work Phone: [facility] Start: 11-14-2021 End: 11-14-2021 Patient encounter procedure TRUDY YATES Work Phone: [facility] Start: 11-12-2021 End: 11-12-2021 Departed Referred TRUDY YATES Work Phone: [facility] Start: 09-30-2021 End: 09-30-2021 Patient encounter procedure TRUDY YATES Work Phone: [facility] Start: 05-05-2019 Review Mirella montane[facility] Start: 05-05-2019 End: 05-05-2019 Office outpatient visit 25 minutes Mirella [facility] Start: 03-15-2019 Review Mirella Mccracken [facility] Internal [facility] Start: 03-15-2019 End: 03-15-2019 Office outpatient visit 15 minutes Mirella [facility] Start: 01-21-2018 End: 01-21-2018 Office outpatient visit 25 minutes Mirella [facility] Start: 11-09-2017 End: 11-09-2017 Office outpatient visit 10 minutes Mirella [facility] Start: 10-15-2017 End: 10-15-2017 Office outpatient visit 15 minutes Mirella [facility] Start: 09-18-2017 End: 09-18-2017 Office outpatient visit 25 minutes Mirella [facility] Start: 05-07-2017 End: 05-07-2017 Office outpatient visit 25 minutes Mirella [facility] Start: 03-26-2017 End: 03-26-2017 Office outpatient visit 10 minutes Mirella [facility] Start: 12-25-2016 End: 12-25-2016 Office outpatient visit 25 minutes Mirella [facility] Start: 09-25-2016 End: 09-25-2016 Office outpatient visit 15 minutes Mirella [facility] Start: 09-16-2016 End: 09-17-2016 Office outpatient visit 5 minutes Mirella [facility] Start: 07-02-2016 End: 07-02-2016 Phone Encounter Mirella Sunshine [facility] Start: 07-01-2016 End: 07-01-2016 Office outpatient visit 5 minutes Mirella [facility] Start: 06-25-2016 End: 06-25-2016 Office outpatient visit 25 minutes Mirella [facility] Start: 05-21-2016 End: 05-21-2016 Office outpatient visit 10 minutes Mirella [facility] Start: 01-04-2016 End: 01-04-2016 Office outpatient visit 25 minutes Mirella [facility] Start: 12-06-2015 End: 12-06-2015 Office outpatient visit 10 minutes Mirella [facility] Start: 11-29-2015 End: 11-29-2015 Office outpatient visit 25 minutes Mirella Mccracken [facility] Start: 11-08-2015 End: 11-08-2015 Patient encounter procedure Mirella [facility] Start: 10-24-2015 End: 10-24-2015 Periodic preventive med est patient 65yrs& older Mirella [facility] Start: 08-13-2015 End: 08-13-2015 Office outpatient visit 5 minutes Mirella [facility] Start: 08-08-2015 End: 08-08-2015 Office outpatient visit 5 minutes Mirella [facility] Start: 08-02-2015 End: 08-02-2015 Office outpatient visit 5 minutes Mirella [facility] Start: 07-27-2015 End: 07-27-2015 Office outpatient visit 5 minutes Mirella [facility] Start: 07-26-2015 End: 07-26-2015 Office outpatient visit 25 minutes Mirella [facility] Start: 07-06-2015 End: 07-06-2015 Office outpatient visit 25 minutes Mirella [facility] Start: 05-30-2015 End: 06-04-2015 Office outpatient visit 5 minutes Mirella [facility] Start: 05-23-2015 End: 05-23-2015 Annotation/Addendum Mirella Sunshine [employer] al Medicine Start: 05-23-2015 End: 05-23-2015 Office outpatient visit 5 minutes Mirella [facility] Start: 05-16-2015 End: 05-16-2015 Office outpatient visit 5 minutes Mirella [facility] Start: 05-09-2015 End: 05-09-2015 Office outpatient visit 5 minutes Mirella [facility] Start: 04-26-2015 End: 04-26-2015 Phone Encounter Mirella Sunshine [employer] [facility] Medicine Start: 04-19-2015 End: 04-19-2015 Office outpatient visit 40 minutes Mirella [facility] Start: 01-11-2015 End: 01-11-2015 Office outpatient visit 25 minutes Mirella [facility] Start: 10-31-2014 End: 10-31-2014 Office outpatient visit 15 minutes Mirella Sunhsine [facility] Start: 10-12-2014 End: 10-12-2014 Office outpatient visit 25 minutes Mirella [facility] Start: 09-11-2014 End: 09-11-2014 Phone Encounter Mirella Sunshine [employer] al Medicine Start: 08-31-2014 End: 08-31-2014 Office outpatient visit 15 minutes Mirella Mccracken [facility] Start: 08-21-2014 End: 08-22-2014 Office outpatient visit 5 minutes Mirella [facility] Start: 08-14-2014 End: 08-14-2014 Periodic preventive med est patient 65yrs& older Mirella [facility] Start: 07-26-2014 End: 07-26-2014 Office outpatient visit 15 minutes Mirella [facility] Start: 07-25-2014 End: 07-25-2014 Office outpatient new 20 minutes Mirella [facility] Start: 07-13-2014 End: 07-14-2014 Office outpatient visit 15 minutes Mirella Mccracken [facility] Start: 04-17-2014 End: 04-17-2014 Office outpatient visit 15 minutes Mirella Mccracken [facility] Start: 04-13-2014 End: 04-13-2014 Phone Encounter Mirella Sunshine [employer] [facility] Medicine Start: 04-06-2014 End: 04-06-2014 Patient encounter procedure Mirella Mccracken [facility] Start: 04-06-2014 End: 04-06-2014 Patient encounter procedure Mirella Mccracken [facility] Start: 12-30-2013 End: 12-30-2013 Patient encounter procedure Mirella Mccracken [facility] Start: 12-22-2013 End: 12-22-2013 Patient encounter procedure Mirella Mccracken [facility] Start: 12-01-2013 End: 12-01-2013 Phone Encounter Mirella Sunshine [employer] [facility] Medicine Start: 12-01-2013 End: 12-01-2013 Patient encounter procedure Mirella Mccracken [facility] Start: 09-23-2013 End: 09-23-2013 Patient encounter procedure Mirella [facility] Start: 09-13-2013 End: 09-13-2013 Phone Encounter Mirella Sunshine [employer] [facility] Medicine Start: 08-01-2013 End: 08-01-2013 Patient encounter procedure Mirella Mccracken [facility] Start: 07-04-2013 End: 07-04-2013 Patient encounter procedure Mirella Mccracken [facility] Start: 06-27-2013 End: 06-27-2013 Patient encounter procedure Mirella Mccracken [facility] Start: 06-20-2013 End: 06-20-2013 Patient encounter procedure Mirella Mccracken [facility] Start: 06-08-2013 End: 06-08-2013 Patient encounter procedure Mirella Mccracken [facility] Start: 05-20-2013 End: 05-20-2013 Patient encounter procedure Mirella Mccracken [facility] Start: 04-22-2013 End: 04-22-2013 Patient encounter procedure Mirella Mccracken [facility] Start: 04-15-2013 End: 04-15-2013 Patient encounter procedure Mirella Mccracken [facility] Start: 03-31-2013 End: 03-31-2013 Patient encounter procedure Mirella Mccracken [facility] Start: 02-28-2013 End: 02-28-2013 Patient encounter procedure Mirella Mccracken [facility] Start: 11-15-2012 End: 11-15-2012 Patient encounter procedure Mirella Mccracken [facility] Start: 10-25-2012 End: 10-25-2012 Patient encounter procedure Mirella Mccracken [facility] Start: 10-21-2012 End: 10-21-2012 Patient encounter procedure Mirella Mccracken [facility] Start: 09-30-2012 End: 09-30-2012 Patient encounter procedure Mirella Mccracken [facility] Start: 09-30-2012 End: 09-30-2012 Phone Encounter Mirellaleatha Mccracken [facility] [employer] al Medicine Start: 09-16-2012 End: 09-16-2012 Patient encounter procedure Mirella Mccracken [facility] Start: 05-27-2012 End: 05-28-2012 Nursing evaluation of patient and report Mirella Nicole [facility] Start: 03-11-2012 End: 03-11-2012 Patient encounter procedure Mirellaleatha Mccracken [facility] Start: 03-04-2012 End: 03-05-2012 Patient encounter procedure M[facility]llaleatha [facility] [facility] Start: 02-25-2012 End: 02-25-2012 Patient encounter procedure Mirellaleatha Mccracken [facility] Start: 02-05-2012 End: 02-05-2012 Phone Encounter Mirellaleatha Mccracken [facility] Campaign Manager al Medicine Start: 02-04-2012 End: 02-04-2012 Phone Encounter Mirella Nicole [facility] Medicine Start: 01-30-2012 End: 01-30-2012 Patient encounter procedure Mirella Nicole [facility] Start: 01-15-2012 End: 01-15-2012 Patient encounter procedure Mirella Mccracken [facility] Start: 12-31-2011 End: 12-31-2011 Patient encounter procedure Mirella Mccracken [facility] Start: 12-26-2011 End: 12-26-2011 Patient encounter procedure Mirella Mccracken [facility] Start: 12-24-2011 End: 12-24-2011 Patient encounter procedure Mirella Mccracken [facility] Start: 12-15-2011 End: 12-15-2011 Patient encounter procedure Mirella Mccracken [facility] Start: 11-26-2011 End: 11-26-2011 Patient encounter procedure Mirella Mccracken [facility] Start: 11-12-2011 End: 11-12-2011 Patient encounter procedure Mirellaleatha Mccracken [facility] Start: 11-06-2011 End: 11-06-2011 Office outpatient visit 25 minutes Mirella Mccracken [facility] Start: 10-22-2011 End: 10-22-2011 Annotation/Addendum Mirella Mccracken [facility] Campaign [facility] al Medicine Start: 10-21-2011 End: 10-21-2011 Office outpatient visit 25 minutes Mirella Nicole [facility] Start: 06-05-2011 End: 06-05-2011 Patient encounter procedure Mirellaleatha Searson [facility] Start: 05-08-2011 End: 05-08-2011 Patient encounter procedure Mirellaleatha Searson [facility] Start: 05-07-2011 End: 05-07-2011 Office outpatient visit 15 minutes Mirella Mccracken [facility] Start: 05-06-2011 End: 05-06-2011 Office outpatient visit 15 minutes Mirella Mccracken [facility] Start: 11-06-2010 End: 11-06-2010 Office outpatient visit 15 minutes Mirella Mccracken [facility] Start: 11-04-2010 End: 11-04-2010 Office outpatient visit 15 minutes Mirella Mccracken [facility] Start: 10-14-2010 End: 10-14-2010 Patient encounter procedure Mirella Nicole [facility] Start: 07-17-2010 End: 07-17-2010 Patient encounter procedure Mirella Nicole [facility] Start: 06-17-2010 End: 06-17-2010 Patient encounter procedure Mirella Nicole [facility] Start: 01-25-2010 End: 01-25-2010 Patient encounter procedure Mirella [facility] Start: 12-13-2009 End: 12-13-2009 Patient encounter procedure Mirella Mccracken [facility] Start: 10-03-2009 End: 10-03-2009 Office outpatient visit 10 minutes Mirella Mccracken [facility] Start: 06-13-2009 End: 06-13-2009 Patient encounter procedure Mirella Mccracken [facility] Start: 01-17-2009 End: 01-17-2009 Office outpatient visit 15 minutes Mirella Mccracken [facility] Start: 01-12-2009 End: 01-12-2009 Office outpatient visit 25 minutes Mirella Mccracken [facility] Start: 01-02-2009 End: 01-02-2009 Patient encounter procedure Mirella Mccracken [facility] Start: 12-07-2008 End: 12-07-2008 Patient encounter procedure Mirella Mccracken [facility] Start: 10-04-2008 End: 10-04-2008 Patient encounter procedure Mirella Mccracken [facility] Start: 09-21-2008 End: 09-21-2008 Office outpatient visit 25 minutes Mirella Mccracken [facility] Start: 08-24-2008 End: 08-24-2008 Patient encounter procedure Mirella Mccracken [facility] Start: 06-28-2008 End: 06-28-2008 Patient encounter procedure Mirella Mccracken [facility] Start: 06-28-2008 End: 06-28-2008 Patient encounter procedure Mirella Mccracken [facility] Start: 06-26-2008 End: 06-26-2008 Historical Summary Mirella Mccracken [facility] Digital Campaign Manager al Medicine Procedures Date Procedure Procedure Detail Performing Clinician Start: 03-06-2025 Urnls dip stick/tablet reagent auto microscopy Dr. Yesika Faust MD Work Phone: Start: 03-06-[address] Yesika Faust MD Work Phone: Start: 01-14-2025 Urnls dip stick/tablet reagent auto [...] [facility] Imaging Services [address] [place] [address] Chest 1 View (Portable) MR#: [id number] Acct: [id number] Name: AGUSTIN GARCIA Rep #: [id number] : 1940 F 79 From: Antoni Gaviria MD PCP: Mirella Mccracken DO Status: [facility] Study: Chest 1 View (Portable) Date of Exam: 05/27/19 Exam# [id number] Ordering Dr: Satish Gonzales MD STUDY: X-RAY [...] CC: Satish Gonzales MD; Mirella Mccracken DO Seed District Sales Manager: Signed Mirella Mccracken Start: 05-27-2019 End: 05-27-2019 Shoulder min 2 Views Comments: See Note; NOTES: [facility] Imaging Services [address] [place] [address] Shoulder min 2 Views MR#: [id number] Acct: [id number] Name: AGUSTIN GARCIA Rep #: [id number] : 1940 F 79 From: Antoni Gaviria MD PCP: Mirella Mccracken DO Status: [facility] Study: Shoulder min 2 Views Date of Exam: 05/27/19 Exam# [id number] Ordering Dr: Aury Hyde MD STUDY: X-RAY [...] CC: Aury Hyde MD; Mirella Mccracken DO Seed District Sales Manager: Signed Mirella Mccracken Start: 05-27-2019 End: 05-27-2019 Operative Report Comments: See Note; NOTES: [facility] Medical Records Department [address] [place] [address] Operative Report 05/27/19 1615 MR#: [id number] Acct: [id number] Name: AGUSTIN GARCIA Rep #: [id number] : 1940 79 From: Uriel Francois MD PCP: Mirella Mccracken DO Status: REG [facility] Y Location: [place] [address] Report of Operation Date of Procedure: 05/27/19 [...] back to the operating room at the [facility] local she was placed in dorsolithotomy position went into the bladder with a 21 Irish rigid cystourethroscope cannulated the left ureteral [...] Admission: No VTE Mechan Device Prophylaxis: SCD's 05/27/191618 <Electronically signed by Uriel Francois MD> Date Uriel Francois MD CC: Ureil Francois MD; Mirella Mccracken DO Signed Mirella Mccracken Start: 05-27-2019 End: 05-27-2019 Discharge Instruction Comments: See Note; NOTES: [facility] Medical Records Department [address] [place] [address] Instructions for Home/Discharge Instructions 05/27/19 1614 MR#: [id number] Acct: [id number] Name: AGUSTIN GARCIA Clara Rep #: [id number] : 1940 79 From: Uriel Francois MD PCP: Mirella Mccracken DO Status: REG [facility] Discharge Diet: Light diet - advance as [...] [facility] Imaging Services [address] [place] [address] Pelvis 1 or 2 Views MR#: [id number] Acct: [id number] Name: AGUSTIN GARCIA Clara Rep #: [id number] : 1940 F 79 From: Antoni Gaviria MD PCP: Mirella Mccracken DO Status: [facility] Study: Pelvis 1 or 2 Views Date of Exam: 05/27/19 Exam# [id number] Ordering Dr: Uriel Francois MD STUDY: X-RAY [...] CC: Uriel Francois MD; Mirella Mccracken DO Seed District Sales Manager: Signed Mirella Mccracken Start: 05-05-2019 End: 05-05-2019 Abdomen/Pelvis WITH Contrast Comments: See Note; NOTES: [facility] Imaging Services [address] [place] [address] Abdomen/Pelvis WITH Contrast MR#: [id number] Acct: [id number] Name: RADHAAGUSTIN M Rep #: [id number] : 1940 F 79 From: Zoran Reinoso MD PCP: Mirella Mccracken DO Status: REG CLI Study: Abdomen/Pelvis WITH Contrast Date of Exam: 05/05/19 Exam# [id number] Ordering Dr: Mirella Mccracken DO STUDY: CT [...] Service support , CC: Mirella Mccracken DO Seed District Sales Manager: Signed Mirella Mccracken Work Phone: Start: 03-18-2019 End: 03-18-2019 Pelvic (Non ) Comments: See Note; NOTES: [facility] Imaging Services [address] [place] [address] Pelvic (Non ) MR#: [id number] Acct: [id number] Name: AGUSTIN GARCIA Rep #: [id number] : 1940 F 78 From: Avi Fisher MD PCP: Mirella Mccracken DO Status: REG CLI Study: Pelvic (Non ) Date of Exam: 03/18/19 Exam# [id number] Ordering Dr: Mirella Mccracken DO STUDY: ULTRASOUND [...] No pelvic pathology identified. Electronically Signed: Avi Natalia, at 16:41 EDT Tel , Service support , CC: Mirella Mccracken DO Seed District Sales Manager: Signed Mirella Mccracken Work Phone: Start: 03-15-2019 End: 03-15-2019 Venous Duplex Lower Extremity Comments: See Note; NOTES: [facility] Cardiovascular Services [address] [facility] [place] [address] Venous Duplex US, Unilateral 03/15/19 1340 MR#: [id number] Acct: [id number] Name: AGUSTIN GARCIA Rep #: [id number] : 1940 78 From: James Moctezuma MD [...] Ordering Physician: Mirella Mccracken Performed By: Dilshad Russo RVT 03/15/19 1423 Date James Moctezuma MD CC: Mirella Mccracken DO Date Dictated: 03/15/19 1340 Date Transcribed: 03/15/19 142 Seed District Sales Manager: Francisca Mccracken Work Phone: Start: 11-17-2017 End: 11-17-2017 PT D/C Summary (1) Comments: See Note; NOTES: [facility] Physical Therapy [address] [place] [address] Fax REHABILITATION SERVICES DISCHARGE SUMMARY MR#: [id number] Acct: [id number] Name: AGUSTIN GARCIA Rep #: [id number] : 1940 77 From: Chester Christine DPT, OCS, CSCS Referring : Mirella Mccracken DO Status: REG RCR Insurance: MEDICARE PART A B AARP HP - PT D/C Summary It has been my pleasure to treat AGUSTIN Clara RADHA under orders from DR.KFEARO Chuy for the diagnosis of L hip pain. [...] please feel free to call me at [phone]. Thank you for the referral of this patient. Sincerely, Chester Christine DPT, CORBY <Electronically signed by Chester Christine DPT, MAKEDA, CSCS> 11/17/17 0920 CC: Mirella Mccracken DO EB Signed Mirella Mccracken Start: 11-13-2017 End: 11-13-2017 Inital Evaluation (1) - PT Comments: See Note; NOTES: [facility] Physical Therapy [facility] [address] [facility] [place] [address] Fax REHABILITATION SERVICES INITIAL EVALUATION MR#: [id number] Acct: [id number] Name: AGUSTIN GARCIA Rep #: [id number] : 1940 77 From: Chester Christine DPT, MAKEDA, CSCS Referring DrSamaria: Mirella Mccracken DO Status: REG RCR Insurance: MEDICARE PART A B AARP Patient's Visit Information AGUSTIN GARCIA is a [...] to be FAXED BACK to us at [phone] for Medicare purposes. Please let me know [...] [facility] Imaging Services [address] [place] [address] Femur Min 2 Views MR#: [id number] Acct: [id number] Name: AGUSTIN GARCIA Rep #: [id number] : 1940 F 77 From: Edwrad Jha MD PCP: Mirella Mccracken DO Status: REG CLI Study: Femur Min 2 Views Date of Exam: 10/15/17 Exam# [id number] Ordering Dr: Mirella Mccracken DO STUDY: X-RAY [...] Edward Jha MD at 15:48 EST Tel [phone], Service support , CC: Mirella Mccracken DO Seed District Sales Manager: Signed Mirella Mccracken Work Phone: Start: 10-15-2017 End: 10-15-2017 Hip 2-3 Views with Pelvis Comments: See Note; NOTES: [facility] Imaging Services [address] [place] [address] Hip 2-3 Views with Pelvis MR#: [id number] Acct: [id number] Name: AGUSTIN GARCIA Rep #: [id number] : 1940 F 77 From: Edward Jha MD PCP: Mirella Mccracken DO Status: REG CLI Study: Hip 2-3 Views with Pelvis Date of Exam: 10/15/17 Exam# [id number] Ordering Dr: Mirella Mccracken DO STUDY: X-RAY [...] Edward Jha MD at 15:54 EST Tel [phone], Service support , STUDY: X-RAY - PELVIS [...] Edward Jha MD at 15:55 EST Tel [phone], Service support , CC: Mirella Mccracken DO Seed District Sales Manager: Signed Mirella Nicole Work Phone: Start: 06-05-2017 End: 06-05-2017 Follow Up Appt 6 months Jose Vargas MD Start: 06-05-2017 End: 06-05-2017 MMM Jose Vargas MD Start: 03-26-2017 End: 03-26-2017 Ribs Uni Min 3V w/PA Chest Comments: See Note; NOTES: [facility] Imaging Services [address] [place] [address] Verdana 4d Ribs Uni Min 3V w/PA Chest MR#: [id number] Acct: [id number] Name: AGUSTIN GARCIA Rep #: [id number] : 1940 F 76 From: Tomas Pat MD PCP: Mirella Mccracken DO Status: REG CLI Study: Ribs Uni Min 3V w/PA Chest Date of Exam: 03/26/17 Exam# [id number] Ordering Dr: Stephenie Burkett MD STUDY: X-RAY [...] CC: Stephenie Burkett MD; Mirella Mccracken DO Seed District Sales Manager: Signed Stephenie Burkett Work Phone: Start: 11-13-2016 End: 11-13-2016 Kidney and Bladder Comments: See Note; NOTES: [facility] Imaging Services [address] [place] [address] Verdana 4d Kidney and Bladder MR#: [id number] Acct: [id number] Name: AGUSTIN GARCIA Rep #: [id number] : 1940 F 76 From: Mackenzie Ortega MD PCP: Mirella Mccracken DO Status: REG CLI Study: Kidney and Bladder Date of Exam: 11/13/16 Exam# [id number] Ordering Dr: Uriel Francois MD STUDY: RENAL [...] MD at 16:03 EST , Service support [phone], CC: Uriel Francois MD; Mirella Mccracken DO Seed District Sales Manager: Signed Mirella Mccracken Start: 11-03-2016 End: 11-03-2016 Follow Up Appt 9 months Zaria Trevino PA-C Work Phone: Start: 11-03-2016 End: 11-03-2016 [facility] Zaria Trevino PA-C Work Phone: Start: 07-07-2016 End: 07-07-2016 Breast Limited Unilateral Comments: See Note; NOTES: [facility] Imaging Services [address] [place] [address] Radha 4d Breast Limited Unilateral MR#: [id number] Acct: [id number] Name: AGUSTIN GARCIA Rep #: [id number] : 1940 F 76 From: Edward Jha MD PCP: Mirella Mccracken DO Status: REG CLI Study: Breast Limited Unilateral Date of Exam: 07/07/16 Exam# [id number] Ordering Dr: Mirella Mccracken DO STUDY: ULTRASOUND [...] Edward Jha MD at 15:23 EDT Tel [phone], Service support [phone], CC: Mirella Mccracken DO Seed District Sales Manager: Signed Mirella Mccracken Work Phone: Start: 07-07-2016 End: 07-07-2016 Unilat Rt Diag Digital AND CAD Comments: See Note; NOTES: [facility] Imaging Services [address] [place] [address] Verdana 4d Unilat Rt Diag Digital AND CAD MR#: [id number] Acct: [id number] Name: AGUSTIN GARCIA Rep #: [id number] : 1940 F 76 From: Edward Jha MD PCP: Mirella Mccracken DO Status: REG CLI Study: Unilat Rt Diag Digital AND CAD Date of Exam: 07/07/16 Exam# [id number] Ordering Dr: Mirella Mccracken DO MAMMOGRAPHY - [...] no significant change since the prior study. [facility]/Unilat Rt Diag Digital AND CAD IMPRESSION: Stable [...] Edward Jha MD at 15:21 EDT Tel [phone], Service support [phone], CC: Mirella Mccracken DO Seed District Sales Manager: Signed Mirella Mccracken Work Phone: Start: 05-21-2016 End: 05-22-2016 Foot min 3 Views Comments: See Note; NOTES: [facility] Imaging Services [address] [place] [address] Verdana 4d Foot min 3 Views MR#: [id number] Acct: [id number] Name: AGUSTIN GARCIA Rep #: [id number] : 1940 F 76 From: Edward Jha MD PCP: Mirella Mccracken DO Status: REG CLI Study: Foot min 3 Views Date of Exam: 05/21/16 Exam# [id number] Ordering Dr: Mirella Mccracken DO STUDY: X-RAY [...] Edward Jha MD at 9:42 EDT Tel [phone], Service support [phone], CC: Mirella Mccracken DO Seed District Sales Manager: Signed Mirella Nicole Work Phone: Start: 05-07-2016 End: 05-07-2016 Follow Up Appt 6 months Jose Vargas MD Start: 05-07-2016 End: 05-07-2016 MMM Jose Vargas MD Start: 01-04-2016 End: 01-04-2016 Ecg routine ecg w/least 12 lds w/i&r [MEASUREMENTS ANALYSIS] Date of Test: 01/04/2016 10:09:41; Heart Rate: 59; NV Interval: 158; QRS: 88; QT Interval: 432; Corrected QT Interval (QTc): 431; P Wave [place]: 32; QRS Wave [place]: 10; T Wave [place]: 47; Blood Pressure: 110/64 [ECG DIAGNOSTIC STATEMENTS] Date of Test: 01/04/2016 10:09:41; Summary: Sinus Bradycardia WITHIN NORMAL LIMITS Mirella Mccracken Work Phone: Comment on above: sinus elin no acute chg Start: 11-29-2015 End: 11-29-2015 Carotid Duplex Ultrasound Comments: See Note; NOTES: [facility] Cardiovascular Services [address] [place] [address] Carotid Duplex Ultrasound 11/20/15 1035 MR#: [id number] Acct: [id number] Name: AGUSTIN GARCIA Rep #: [id number] : 1940 75 From: Miko Cutler MD Attending Dr: Zaria Bustamante Status: REG CLI Ordering Dr: Zaria Bustamante Date: 11/20/15 Location: [facility] Sex: F C Admitted: Reason [...] the left vertebral artery. Procedure Carotid Duplex 94076. The exam was diagnostic. Exam performed in [...] Date Dictated: 11/20/15 1035 Date Transcribed: 11/29/15 1556 Seed District Sales Manager: Signed Mirella Mccracken Start: 11-13-2015 End: 11-13-2015 Bilat Scrn Digital AND CAD Comments: See Note; NOTES: [facility] Imaging Services [address] [place] [address] Verdana 4d Bilat Scrn Digital AND CAD MR#: [id number] Acct: [id number] Name: AGUSTIN GARCIA Rep #: [id number] : 1940 F 75 From: Edward Jha MD PCP: Mirella Mccracken DO Status: REG CLI Study: Bilat Scrn Digital AND CAD Date of Exam: 11/13/15 Exam# [id number] Ordering Dr: Mirella Mccracken DO MAMMOGRAPHY - [...] delay biopsy of a clinically suspicious abnormality. [id number] Electronically Signed: Edward Jha MD at 14:46 EST Tel [phone], Service support [phone], CC: Mirella Mccracken DO Seed District Sales Manager: Signed Mirella Mccracken Work Phone: Start: 11-05-2015 [...] NOTES: [facility] Imaging Services [address] [place] [address] CAT Scan Report MR#: [id number] Acct: [id number] Name: AGUSTIN GARCIA Rep #: [id number] : 1940 F 75 From: Otoniel Tam MD PCP: Mirella Mccracken DO Status: REG CLI Study: Spine Cervical without Contras Date of Exam: 06/07/15 Exam# [id number] Ordering Dr: Louis Tsang STUDY: CT CERVICAL [...] MD at 16:59 EDT , Service support [phone], CC: Mirella Mccracken DO; LOUIS TSANG Seed District Sales Manager: Signed Mirella Mccracken Start: 05-22-2015 End: 05-23-2015 Spine Lumbar without Contrast Comments: See Note; NOTES: [facility] Imaging Services [address] [place] [address] CAT Scan Report MR#: [id number] Acct: [id number] Name: AGUSTIN GARCIA Rep #: [id number] : 1940 F 75 From: Ruddy Pozo MD PCP: Mirella Mccracken DO Status: REG CLI Study: Spine Lumbar without Contrast Date of Exam: 05/22/15 Exam# [id number] Ordering Dr: Louis Tsang STUDY: CT LUMBAR [...] at 10:05 EDT Tel , Service support [phone], CC: Mirella Mccracken DO; LOU[place] TSANG Seed District Sales Manager: Signed Mirella Mccracken Start: 05-09-2015 End: 05-10-2015 Documentation of current medications Jose Vargas MD Start: 05-09-2015 End: 05-09-2015 Follow Up Appt 6 months Jose Vargas MD Start: 05-09-2015 End: 10-23-2016 Follow Up Appt Other Jose Vargas MD Start: 05-09-2015 End: 05-09-2015 MM Jose Vargas MD Start: 04-26-2015 End: 04-26-2015 Brain/Head W/WO Contrast Comments: See Note; NOTES: [facility] Imaging Services [address] [place] [address] CAT Scan Report MR#: [id number] Acct: [id number] Name: AGUSTIN GARCIA Rep #: [id number] : 1940 F 74 From: Edward Jha MD PCP: Mirella Mccracken DO Status: REG CLI Study: Brain/Head W/WO Contrast Date of Exam: 04/26/15 Exam# [id number] Ordering Dr: Mirella Mccracken DO STUDY: CT [...] Edward Jha MD at 12:51 EDT Tel [phone], Service support [phone], CC: Mirella Mccracken DO Seed District Sales Manager: Signed Mirella Mccracken Work Phone: Start: 10-24-2014 End: 10-24-2014 Breast Complete Unilateral Comments: See Note; NOTES: [facility] Imaging Services [address] [place] [address] Ultrasound Report MR#: [id number] Acct: [id number] Name: RADHAAGUSTIN Rep #: [id number] : 1940 F 74 From: Edward Jha MD PCP: Mirella Mccracken DO Status: REG CLI Study: Breast Complete Unilateral Date of Exam: 10/24/14 Exam# [id number] Ordering Dr: Mirella Mccracken DO STUDY: ULTRASOUND [...] Edward Jha MD at 11:15 EST Tel [phone], Service support [phone], CC: Mirella Mccracken DO Seed District Sales Manager: Signed Mirella Mccracken Work Phone: Start: 10-24-2014 End: 10-25-2014 Dexa Bone Density Study (HP) Comments: See Note; NOTES: [facility] Imaging Services [address] [place] [address] Bone Density Report MR#: [id number] Acct: [id number] Name: RADHAAGUSTIN Rep #: [id number] : 1940 F 74 From: Edward Jha MD PCP: Mirella Mccracken DO Status: [facility] CLI Study: Dexa Bone Density Study (HP) Date of Exam: 10/24/14 Exam# [id number] Ordering Dr: Mirella Mccracken DO STUDY: DUAL [...] Edward Jha MD at 10:14 EST Tel [phone], Service support [phone], CC: Mirella Mccracken DO Seed District Sales Manager: Signed Mirella Mccracken Work Phone: Start: 10-19-2014 End: 10-20-2014 Bilat Scrn Digital AND CAD Comments: See Note; NOTES: [facility] Imaging Services [address] [place] [address] Breast Imaging Report MR#: [id number] Acct: [id number] Name: AGUSTIN GARCIA Rep #: [id number] : 1940 F 74 From: Edward Jha MD PCP: Mirella Mccracken DO Status: REG CLI Study: Bilat Scrn Digital AND CAD Date of Exam: 10/19/14 Exam# [id number] Ordering Dr: Mirella Mccracken DO MAMMOGRAPHY - [...] Edward Jha MD at 13:38 EST Tel [phone], Service support [phone], CC: Mirella Mccracken DO Seed District Sales Manager: Signed Mirella Mccracken Work Phone: Start: 10-10-2014 [...] NOTES: [facility] Imaging Services [address] [place] [address] CAT Scan Report MR#: [id number] Acct: [id number] Name: AGUSTIN GARCIA Rep #: [id number] : 1940 F 74 From: Audie Hugo MD PCP: Mirella Mccracken DO Status: REG CLI Study: Brain/Head W/WO Contrast Date of Exam: 09/08/14 Exam# [id number] Ordering Dr: Mirella Mccracken DO STUDY: CT [...] To Hugo MD at 8:17 EST Tel [phone], Service support [phone], CC: Mirella Mccracken DO Seed District Sales Manager: Signed Mirella Mccracken Work Phone: Start: 07-27-2014 End: 07-27-2014 History and Physical Exam Comments: See Note; NOTES: [facility] Medical Records Department [address] [place] [address] History and Physical 07/27/14 0753 MR#: [id number] Acct: [id number] Name: AGUSTIN GARCIA Rep #: [id number] : 1940 74 From: Nella Howard PCP: Mirella Mccracken DO Status: PRE [facility] Location: [facility] DATE OF SERVICE: 07/28/2014 PREOPERATIVE DIAGNOSIS: Painful hammertoe, right second and fourth toes. 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 SURGEON: Lidia RodriguezPSusan. ANESTHESIA: MAC with local. ALLERGIES: THE PATIENT [...] scheduled to undergo outpatient surgical intervention at [facility] on July 28, 2014. Pedal pulses are easily palpable bilaterally and consent was reviewed, signed and placed in chart. Nella Howard DPM T: JOVANNA JOB: [id number] 07/27/14 1156 <Electronically signed by Nella Howard > Date: Time: Nella Howard CC: Mirella Mccracken DO; Nella Howard DPM Date Dictated: 07/27/14752 Date Transcribed: 07/27/14752 Seed District Sales Manager: Signed ____ I have re-examined the patient. [...] [facility] Imaging Services [address] [place] [address] CAT Scan Report MR#: [id number] Acct: [id number] Name: RADHAAGUSTIN Rep #: [id number] : 1940 F 73 From: Edward Jha MD PCP: Status: REG CLI Study: CTA Chest W/WO Contrast Date of Exam: 12/22/13 Exam# [id number] Ordering Dr: Mirella Mccracken DO STUDY: CTA [...] at 13:14 EDT Tel , Service support [phone], CC: Mirella Mccracken DO [employer] Sales Manager: Signed Mirella Mccracken Work Phone: Start: 12-13-2013 [...] [facility] Imaging Services [address] [place] [address] CAT Scan Report MR#: [id number] Acct: [id number] Name: AGUSTIN GARCIA Rep #: [id number] : [id number] From: Audie Hugo MD PCP: Status: REG CLI Study: Brain/Head w/wo Contrast Date of Exam: 06/20/13 Exam# [id number] Ordering Dr: Stephenie Burkett MD STUDY: CT [...] June 20, 2013 at 3:17:31 PM EDT [phone] Electronically Signed BW/BW If you are the referring physician and would like to consult with the radiologist who provided this interpretation, please contact To Hugo M.D. at [phone]. If this radiologist is unavailable, you will be directed to another radiologist to assist. If you are a patient with a question regarding this report, please contact your referring physician directly. Professional Interpretation Provided By: [employer], Phone , These documents contain legally protected [...] of these documents. CC: Stephenie Burkett MD [employer] Sales Manager: Signed Stephenie Burkett Work Phone: Start: 05-04-2013 [...] 01-06-2012 End: 04-18-2013 *Hepatic Function Panel Jose Varags MD Start: 01-06-2012 End: 04-18-2013 24 hour [...] Comment on above: 1971 Abdominal hysterectomy Alyson Messenger Comment on above: 1971 Abdominal hysterectomy Alyson Dixon Comment on above: 1971 Amputation Alyson Dixon Comment on above: 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 Amputation Alyson Messenger Comment on above: 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 Amputation Alyson Messenger Comment on above: 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 Appendectomy Alyson Dixon Comment on above: 1950 Appendectomy Alyson Messenger Comment on above: 1949 Appendectomy Alyson Dixon [...] Alyson richter Comment on above: with surgery [id number] Kidney Problems Alyson richter Comment on above: with surgery [id number] Kidney Problems Alyson richter Comment on above: with surgery [id number] Ligation of fallopia n tube Alyson Dixon Comment on above: 1966 Ligation of fallopia n tube Alyson Dixon Comment on above: 1966 Ligation of fallopia n tube Alyson Dixon Comment on above: 1966 Operation on heart Alyson peter 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 11/17/11 Operation on heart Alyson peter 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 11/17/11 Operation on heart Alyson peter 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 11/17/11 Operation on neck Alyson turner Comment on above: 09/12/15 Operation on neck Alyson turner Comment on above: 09/12/15 Operation on neck Alyson turner Comment on above: 09/12/15 Prosthetic arthropla sty [...] metabolic panel calcium total Metabolic Panel, Basic (23374) [facility] Work Phone: Start: 01-21-2018 Provider Instructions for Treatment [facility] Work Phone: Start: 11-24-2017 End: 11-24-2017 Appointment Appointment [facility] Work Phone: Start: 11-09-2017 Provider [...] Phone: Start: 06-05-2017 End: 06-05-2017 MMM MMM [facility] Work Phone: Start: 05-07-2017 Provider Instructions for Treatment [facility] Work Phone: Start: 05-07-2017 Urnls dip stick/tablet reagent auto microscopy URINALYSIS, W/ MICRO (34126) [facility] Work Phone: Start: 05-07-2017 Urine albumin quantitative MICROALBUMIN: CREATININE RATIO (68417) AND (89882) [facility] Work Phone: Start: 12-25-2016 [...] Phone: Start: 07-02-2016 Lipid panel Lipid Panel (06775) [facility] Work Phone: Start: 06-25-2016 Provider Instructions for Treatment [facility] Work Phone: Start: 05-12-2016 End: 05-11-2015 *Hepatic Function Panel *Hepatic Function Panel [facility] Work Phone: Start: 05-12-2016 End: 05-11-2015 Lipid panel [AGGREGATE] *Lipid Profile CC PCP [facility] Work Phone: Start: 05-07-2016 End: 05-07-2016 Follow Up Appt 6 months Follow Up Appt 6 months [facility] Work Phone: Start: 05-07-2016 End: 05-07-2016 MMM MMM [facility] Work Phone: Start: 01-04-2016 Patient Education Instructions for the Patient Before and After Surgery *: instructions [facility] Work Phone: Start: 01-04-2016 Provider Instructions for Treatment [facility] Work Phone: Start: 11-29-2015 Provider Instructions for Treatment [facility] Work Phone: Start: 11-05-2015 End: 11-05-2015 Carotid duplex Carotid duplex [facility] Work Phone: Start: 11-05-2015 End: 11-05-2015 Follow Up Appt 6 months Follow Up Appt 6 months [facility] Work Phone: Start: 11-05-2015 End: 11-05-2015 Follow Up Appt Other Follow Up Appt Other [facility] Work Phone: Start: 11-05-2015 End: 11-05-2015 PFM PFM [facility] Work Phone: Start: 10-24-2015 Provider Instructions for Treatment [facility] Work Phone: Start: 10-24-2015 Blood occult fecal hgb deter ia qual feces 1-3 FECAL OCCULT- Tubes sent home (49153) [facility] Work Phone: Start: 07-26-2015 Patient Education Anxiety: emotional health [facility] Work Phone: Start: 07-26-2015 Provider Instructions for Treatment [facility] Work Phone: Start: 07-26-2015 25 hydroxy includes fractions if performed CALCIFIDIOL (88296) VIT D 25 [facility] Work Phone: Start: 07-26-2015 Urnls dip stick/tablet reagent auto microscopy URINALYSIS, W/ MICRO (75505) [facility] Work Phone: Start: 07-26-2015 Urine albumin quantitative MICROALBUMIN: CREATININE RATIO (57389) AND (76096) [facility] Work Phone: Start: 07-26-2015 Comprehensive metabolic panel METABOLIC PANEL, COMPREHENSIVE (74762) [facility] Work Phone: Start: 07-26-2015 Blood count complete auto&auto difrntl wbc CBC W/AUTO DIFF WBC (09056) [facility] Work Phone: Start: 07-26-2015 Thyrotropin Qn TSH (89530) [facility] Work Phone: Start: 07-26-2015 Lipid panel LIPID PANEL (78943) [facility] Work Phone: Start: 05-09-2015 End: 05-09-2015 Follow Up Appt 6 months Follow Up Appt 6 months [facility] Work Phone: Start: 05-09-2015 End: 10-23-2016 Follow Up Appt Other Follow Up Appt Other [facility] Work Phone: Start: 05-09-2015 End: 05-09-2015 MMM MMM [facility] Work Phone: Start: 04-26-2015 Culture bct isol&prsmptv id isolate ea urine URINE IBRAHIMA CULTURE-IDENTIFICATN (51650) [facility] Work Phone: Start: 04-19-2015 Procedure Education Eprescribed prescriptions (G8553) [facility] Work Phone: Start: 04-19-2015 Provider Instructions for Treatment [facility] Work Phone: Start: 04-19-2015 Cobalamin (Vitamin B12) mass conc VITAMIN B-12 (CYANOCOBALAMIN) (85244) [facility] Work Phone: Start: 04-19-2015 Urnls dip stick/tablet rgnt auto w/o microscopy URINALYSIS W/O MICRO (83372) [facility] Work Phone: Start: 04-19-2015 Thyrotropin Qn TSH (76359) [facility] Work Phone: Start: 04-19-2015 Urine albumin quantitative MICROALBUMIN: CREATININE RATIO (84597) AND (03090) [facility] Work Phone: Start: 04-19-2015 Comprehensive metabolic panel METABOLIC PANEL, COMPREHENSIVE (49052) [facility] Work Phone: Start: 04-19-2015 Blood count complete auto&auto difrntl wbc CBC W/AUTO DIFF WBC (72236) [facility] Work Phone: Start: 04-19-2015 Lipid panel LIPID PANEL (26526) [facility] Work Phone: Start: 04-19-2015 25 hydroxy includes fractions if performed CALCIFIDIOL (29871) VIT D 25 [facility] Work Phone: Start: 01-11-2015 Provider Instructions for Treatment [facility] Work Phone: Start: 01-11-2015 25 hydroxy includes fractions if performed Vitamin D Hydroxy (71158) [facility] Work Phone: Start: 01-11-2015 Lipid panel LIPID PANEL (41225) [facility] Work Phone: Start: 01-11-2015 Thyrotropin Qn TSH (40133) [facility] Work Phone: Start: 01-11-2015 Urnls dip stick/tablet reagent auto microscopy URINALYSIS, W/ MICRO (00626) [facility] Work Phone: Start: 01-11-2015 Urine albumin quantitative MICROALBUMIN: CREATININE RATIO (21405) AND (28970) [facility] Work Phone: Start: 01-11-2015 Comprehensive metabolic panel METABOLIC PANEL, COMPREHENSIVE (78221) [facility] Work Phone: Start: 01-11-2015 Blood count complete auto&auto difrntl wbc CBC W/AUTO DIFF WBC (66334) [facility] Work Phone: Start: 10-31-2014 [...] [facility] Work Phone: Start: 10-10-2014 End: 10-23-2016 Follow Up Appt Other Follow Up Appt Other [facility] Work Phone: Start: 10-10-2014 End: 10-10-2014 PFM PFM [facility] Work Phone: Start: 10-09-2014 25 hydroxy includes fractions if performed Vitamin D Hydroxy (45134) [facility] Work Phone: Start: 08-31-2014 [...] Phone: Start: 07-13-2014 Procedure Education Eprescribed prescriptions (G5481) [facility] Work Phone: Start: 07-13-2014 [...] [facility] Work Phone: Start: 04-10-2014 End: 04-10-2014 Follow Up BP Check Follow Up BP Check [facility] Work Phone: Start: 04-10-2014 End: 04-10-2014 MMM MMM [facility] Work Phone: Start: 04-06-2014 Procedure Education Eprescribed prescriptions (G8553) [facility] Work Phone: Start: 04-06-2014 Provider Instructions for Treatment [facility] Work Phone: Start: 04-06-2014 Prothrombin time (PT) Coag time (PPP) PT (Prothrobim Time) (87721) [facility] Work Phone: Comment on [...] Up Appt Other Follow Up Appt Other [facility] Work Phone: Start: 12-07-2013 End: 12-07-2013 PFM PFM [facility] Work Phone: Start: 12-01-2013 Patient Education Water in diet, brief version [facility] Work Phone: Start: 12-01-2013 Provider Instructions for Treatment [facility] Work Phone: Start: 08-08-2013 End: 08-08-2013 Follow Up Appt 4 months Follow Up Appt 4 months [facility] Work Phone: Start: 08-08-2013 End: 08-08-2013 Follow Up Appt Other Follow Up Appt Other [facility] Work Phone: Start: 08-08-2013 End: 08-08-2013 MMM MMM [facility] Work Phone: Start: 08-08-2013 End: 08-08-2013 PFM PFM [facility] Work Phone: Start: 08-01-2013 Provider Instructions for Treatment [facility] Work Phone: Start: 07-04-2013 Provider Instructions for Treatment [facility] Work Phone: Start: 06-27-2013 Provider Instructions for Treatment [facility] Work Phone: Start: 06-20-2013 Blood count complete auto&auto difrntl wbc CBC, PLATELETS & AUT DIFF (13912) [facility] Work Phone: Start: 06-20-2013 CRP mass conc C-Reactive Protein (93957) [facility] Work Phone: Start: 06-20-2013 Sedimentation rate rbc non-automated Sed Rate Erythrocyte (75951) [facility] Work Phone: Start: 06-20-2013 Creatinine mass conc CREATININE BLOOD (98510) [facility] Work Phone: Start: 06-08-2013 Patient Education Flu (Influenza) *: flu shot [facility] Work Phone: Start: 05-20-2013 Provider Instructions for Treatment Reviewed Diagnostic Tests [facility] Work Phone: Start: 05-04-2013 End: 07-07-2013 *BMP *BMP [facility] Work Phone: Start: 04-27-2013 End: 04-27-2013 Pulmonary Fuction Test - complete Pulmonary Fuction Test - complete [facility] Work Phone: Start: 04-22-2013 Provider Instructions for Treatment Reviewed Diagnostic Tests [facility] Work Phone: Start: 04-19-2013 End: 04-20-2013 *BMP *BMP [facility] Work Phone: Start: 04-19-2013 End: 04-20-2013 aPTT *PTT-Partial Thromboplastin Time [facility] Work Phone: Start: 04-19-2013 End: 04-20-2013 CBC W Auto Differential panel - Blood *CBC without Diff [facility] Work Phone: Start: 04-19-2013 End: 04-20-2013 Chest x-ray X-Ray, Chest, PA & Lateral [facility] Work Phone: Start: 04-19-2013 End: 04-20-2013 Coagulation factor induced.INR assay in platelet poor plasma *PT/INR [facility] Work Phone: Start: 04-19-2013 End: 04-19-2013 Electrocardiogram, complete EKG (In office) [facility] Work Phone: Start: 04-19-2013 End: 04-19-2013 Follow Up Appt Other Follow Up Appt Other [facility] Work Phone: Start: 04-18-2013 End: 04-18-2013 Left & Right Heart Cath W/Grafts Left & Right Heart Cath W/Grafts [facility] Work Phone: Start: 04-15-2013 Patient Education Water in diet, brief version [facility] Work Phone: Start: 04-15-2013 Provider Instructions for Treatment [facility] Work Phone: Start: 03-15-2013 End: 03-09-2013 Echocardiography Echocardiogram (complete) [facility] Work Phone: Start: 02-28-2013 Provider Instructions for Treatment [facility] Work Phone: Start: 02-10-2013 End: 02-10-2013 Arterial exam Arterial exam [facility] Work Phone: Start: 02-10-2013 End: 02-10-2013 Electrocardiogram, complete EKG (In office) [facility] Work Phone: Start: 02-10-2013 End: 02-10-2013 Flecainide [Mass/volume] in Serum or Plasma *FLEC Flecainide (Tambocor) [address] [facility] Work Phone: Start: 02-10-2013 End: 02-10-2013 Follow Up Appt 6 months Follow Up Appt 6 months [employer] [facility] Work Phone: Start: 02-10-2013 End: 08-08-2013 Lipid panel [AGGREGATE] *Lipid Profile CC PCP [facility] Work Phone: Start: 02-10-2013 End: 02-10-2013 MMM MMM [facility] Work Phone: Start: 11-15-2012 Provider Instructions for [...] urine URINE IBRAHIMA CULTURE (TY COL COUNT) (36301) [facility] Work Phone: Start: 09-16-2012 Provider Instructions for Treatment Follow up in 1 month [facility] Work Phone: Start: 07-08-2012 End: 04-18-2013 *Hepatic Function Panel *Hepatic Function Panel [facility] Work Phone: Start: 07-08-2012 End: 07-09-2012 Electrocardiogram, complete EKG (In office) [facility] Work Phone: Start: 07-08-2012 End: 07-09-2012 Follow Up Appt 6 months Follow Up Appt 6 months [facility] Work Phone: Start: 07-08-2012 End: 04-18-2013 Lipid panel [AGGREGATE] *Lipid Profile [facility] Work Phone: Start: 04-12-2012 End: 04-12-2012 Follow Up Appt 3 months Follow Up Appt 3 months [facility] Work Phone: Start: 03-05-2012 Provider Instructions for [...] 04-18-2013 *Hepatic Function Panel *Hepatic Function Panel [facility] Work Phone: Start: 01-06-2012 End: 01-06-2012 24 hour holter monitor 24 hour holter monitor [facility] Work Phone: Start: 01-06-2012 End: 01-06-2012 Electrocardiogram, complete EKG (In office) [facility] Work Phone: Start: 01-06-2012 End: 01-06-2012 Follow Up Appt 3 months Follow Up Appt 3 months [facility] Work Phone: Start: 01-06-2012 End: 01-06-2012 Follow Up Appt Other Follow Up Appt Other [facility] Work Phone: Start: 01-06-2012 End: 04-18-2013 Lipid panel [AGGREGATE] *Lipid Profile [facility] Work Phone: Start: 12-31-2011 Provider Instructions for Treatment [facility] Work Phone: Start: 12-24-2011 Fibrin dgradj products d-dimer quantitative D-Dimer (12980) [facility] Work Phone: Start: 12-24-2011 Blood count complete automated CBC (AUTO) (92966) [facility] Work Phone: Start: 12-03-2011 Culture bacterial quanttative colony count urine URINE IBRAHIMA CULTURE-TY COL COUNT (19752) [facility] Work Phone: Start: 11-26-2011 Provider Instructions for Treatment [facility] Work Phone: Start: 11-06-2011 Provider Instructions for Treatment Reviewed Diagnostic Tests [facility] Work Phone: Start: 11-04-2011 Renal function panel Renal function Panel (09566) [facility] Work Phone: Start: 10-22-2011 CRP mass conc C-Reactive Protein (89660) [facility] Work Phone: Start: 10-21-2011 Renal function panel Renal function Panel (09855) [facility] Work Phone: Start: 10-21-2011 Provider Instructions for Treatment Follow up in 2 weeks [facility] Work Phone: Start: 10-21-2011 Fibrin dgradj products d-dimer quantitative D-Dimer (28320) [facility] Work Phone: Start: 10-21-2011 Troponin I.cardiac mass conc Troponin I (56356) [facility] Work Phone: Start: 10-21-2011 Creatine kinase mb fraction only CPK MB FRACTION (02611) [facility] Work Phone: Start: 10-21-2011 Creatine kinase total CREATINE KINASE TOTAL (50362) [facility] Work Phone: Start: 10-21-2011 CRP mass conc C-Reactive Protein (46406) [facility] Work Phone: Start: 06-17-2010 Provider Instructions for Treatment [facility] Work Phone: Start: 12-13-2009 Provider Instructions for Treatment [facility] Work Phone: Start: 01-17-2009 Provider Instructions for Treatment [facility] Work Phone: Start: 01-12-2009 Provider Instructions for Treatment *ERGOCALCIFEROL DOSAGE PER SHEWMON [facility] Work Phone: Start: 01-12-2009 Nuclear Ab IF titer (S) CORTES (ANTINUCLEAR ANTIBODY) (12351) [facility] Work Phone: Start: 01-12-2009 Rheumatoid factor quantitative RHEUMATOID FACTOR-QUANT (72878) [facility] Work Phone: Start: 01-12-2009 25 hydroxy includes fractions if performed Vitamin D Hydroxy (44310) [facility] Work Phone: Comment on above: do in 3-4 months Start: 01-02-2009 Provider Instructions for Treatment [facility] Work Phone: Start: 01-02-2009 25 hydroxy includes fractions if performed Vitamin D Hydroxy (90411) [facility] Work Phone: Start: 01-02-2009 1 25 dihydroxy includes fractions if performed VITAMIN D, 1, 25-DIHYDROXY (17669) [facility] Work Phone: Start: 01-02-2009 Thyrotropin Qn TSH (92269) [facility] Work Phone: Start: 01-02-2009 Protein electrophoretic fractj&quantj serum [facility] Work Phone: Start: 01-02-2009 Sedimentation rate rbc non-automated SED RATE ERYTHROCYTE (56789) [facility] Work Phone: Start: 01-02-2009 Phosphate mass conc PHOSPHORUS (43469) [facility] Work Phone: Start: 01-02-2009 Assay of parathormone PARATHORMONE (32413) [facility] Work Phone: Start: 01-02-2009 Hepatic function panel HEPATIC FUNCTION PANEL (99568) [facility] Work Phone: Start: 01-02-2009 Blood count complete automated CBC (AUTO) (04916) [facility] Work Phone: Start: 01-02-2009 Calcium mass conc CALCIUM SERUM (76790) [facility] Work Phone: Start: 01-02-2009 CRP mass conc C-REACTIVE PROTEIN (05800) [facility] Work Phone: Start: 01-02-2009 ALP enzyme act/vol ALKALINE PHOSPHATASE (21066) [facility] Work Phone: Start: 10-04-2008 Provider Instructions for Treatment [facility] Work Phone: Start: 10-04-2008 Lipid panel LIPID PANEL (92576) [facility] Work Phone: Start: 09-21-2008 Patient Education Water in diet, brief version [facility] Work Phone: Start: 09-21-2008 Provider Instructions for Treatment [facility] Work Phone: Start: 08-24-2008 Provider Instructions for Treatment [facility] Work Phone: Start: 06-28-2008 Provider Instructions for Treatment [facility] Work Phone: Patient Education HYPERLIPIDEMIA [facility] Work Phone: [facility] [...] Immunizations Immunization Date Immunization Notes Care Provider [place] wall 06-13-2009 influenza, seasonal, injectable Mirella Nicole [facility] Work Phone: Comment on above: Lot #[id number]-left deltoidgiven by:[facility] 06-28-2008 influenza, seasonal, injectable Mirella Nicole [facility] Work Phone: Comment on above: done km 0.5cc given im ;lt arm lot [id number] exp 02-20 Payers Date Payer Category Payer Unknown [id number] 2024 Self-pay [id number] 2024 Unknown [id number] 2016 Unknown [id number] 2004 Medicare [id number] Medicare MEDICARE PART A B [id number] Private Health Insurance [id number] Unknown Unknown [id number] 2.16.840.1.293685.3.579.2.462 Unknown [id number] 2.16.840.1.491334.3.579.2.462 Unknown [id number] 2.16.840.1.888183.3.579.2.462 Unknown [id number] 2.16840.1.831852.3.579.2.462 Unknown [id number] 2.16.840.1.124851.3.579.2.462 Unknown [id number] 2.16.840.1.429263.3.579.2.462 Unknown [id number] 2.16.840.1.155749.3.579.2.462 Unknown [id number] 2.16.840.1.536122.3.579.2.462 Unknown [id number] 2.16.840.1.367846.3.579.2.462 Unknown [id number] 2.16.840.1.619958.3.579.2.462 Unknown [id number] 2.16.840.1.826463.3.579.2.462 Unknown [id number] 2.16.840.1.756735.3.579.2.462 Unknown [id number] 2.16.840.1.571026.3.579.2.462 Unknown [id number] 2.16.840.1.713197.3.579.2.462 Unknown [id number] 2.16.840.1.887618.3.579.2.462 Unknown [id number] 2.16.840.1.291762.3.579.2.462 Unknown [id number] 2.16.840.1.203569.3.579.2.462 Unknown [id number] 2.16.840.1.337517.3.579.2.462 Unknown [id number] 2.16.840.1.608694.3.579.2.462 Unknown [id number] 2.16.840.1.204908.3.579.2.462 Unknown [id number] 2.16.840.1.668930.3.579.2.462 Unknown [id number] 2.16840.1.563603.3.579.2.462 Unknown [id number] 2.16.840.1.492845.3.579.2.462 Unknown [id number] 2.16.840.1.397877.3.579.2.462 Unknown [id number] 2.16.840.1.856523.3.579.2.462 Unknown [id number] 2.16.840.1.884555.3.579.2.462 Unknown [id number] 2.16.840.1.155511.3.579.2.462 Unknown [id number] 2.16.840.1.147134.3.579.2.462 Unknown [id number] 2.16.840.1.638165.3.579.2.462 Unknown [id number] 2.16.840.1.651402.3.579.2.462 Unknown [id number] 2.16.840.1.342869.3.579.2.462 Unknown [id number] 2.16.840.1.634082.3.579.2.462 Unknown [id number] 2.16.840.1.197614.3.579.2.462 Unknown [id number] 2.16.840.1.974419.3.579.2.462 Unknown [id number] 2.16.840.1.726320.3.579.2.462 Unknown [id number] 2.16.840.1.021477.3.579.2.462 Social History Date Type Detail Facility Caffeine Use Never smoker [facility] Work Phone: Comment on above: 2 per week 3-4 miles QD walking , heterosexua l, celibate Retired Tobacco use: Never smoker. [facility] Work Phone: Start: 09-30-2021 End: 07-09-2023 Tobacco smoking status KYIS Unknown if ever smoked [facility] Start: 06-12-2021 None [facility] Start: 06-12-2021 Homeless [facility] Start: 06-12-2021 Non-smoker [facility] Start: 1940 Sex Assigned At Female [facility] Start: 02-07-2024 End: 03-02-2025 Tobacco smoking status NHIS Never smoked tobacco (finding) [facility] Start: 12-14-2024 End: 01-04-2025 Sex Female (finding) [facility] Medical Equipment Procedure Code Equipment Code Equipment [...] Facility Evaluation note No assessment information availa ble [facility] Work Phone: Evaluation note Note Date & Type Note Facility Evaluation note Diagnosis Onset Date Pes anserinus bursitis of left knee noneactive Osteoarthritis of left knee noneactive [facility] Work Phone: Evaluation note Note Date & Type Note Facility Evaluation note Diagnosis Onset Date Pes anserinus bursitis of left knee noneactive Osteoarthritis of left knee noneactive Pes anserinus bursitis of left knee noneactive Osteoarthritis of left knee noneactive [facility] Work Phone: Evaluation note Note Date & Type Note Facility Evaluation note Diagnosis Onset Date Osteoarthritis of left knee noneactive Osteoarthritis of left knee noneactive Osteoarthritis of left knee noneactive Osteoarthritis of left knee noneactive [facility] Work Phone: Reason for referral (narrative) Note Date & Type Note Facility Reason for referral (narrative) No reason for referral information available [facility] Work Phone: Family History No Family History [...] Type:Provider Instructions for Treatment How to access [employer] online Indication:Coronary artery disease Start:06-Apr-2014 Instruction Type:Patient [...] Dates Details How to access health informa [email or web address] Indication:Nonsmoker Start:15-Mar-2019 Instruction Type:Patient Education How to access health [facility] [email or web address] online - Detail Indication:Nonsmoker Start:15-Mar-2019 Instruction Type:Patient [...] Instructions for Treatment How to access health [facility] [email or web address] online Indication:Coronary artery disease Start:06-Apr-2014 Instruction Type:Patient [...] Dates Details How to access health informa [email or web address] online Indication:Nonsmoker Start:05-May-2019 Instruction Type:Patient Education Patient Instructions Indication:Nonsmoker Start:05-May-2019 Instruction Type:Provider Instructions for Treatment How to access health informa [email or web address] online Indication:Nonsmoker Start:15-Mar-2019 Instruction Type:Patient Education How [...] for Treatment How to access health informa [email or web address] online Indication:Coronary artery disease Start:13-Jul-2014 Instruction Type:Patient [...] Name Dates Details How to access health [facility] [employer] Indication:Nonsmoker Start:05-May-2019 Instruction Type:Patient Education Patient Instructions [...] Type:Provider Instructions for Treatment How to access [facility] online Indication:Coronary artery disease Start:06-Apr-2014 Instruction Type:Patient [...] Yes May 27, 2019 6:37pm Power of Knockout Worker Yes May 6:37pm Advance Directive Response Recorded Date/ Time Advance Directives Yes May 2:39pm Living Will Yes June 04, 2022 2:39pm Power of Knockout Worker Yes May 2:39pm Advance Directive Response Recorded Date/ Time Advance Directives Yes July 9:15am Living Will Yes August 01, 9:15am Power of Knockout Worker Yes August 01, 2022 9:15am Advance Directive Response Recorded Date/ Time Advance Directives Yes July 10:15am Living Will Yes August 01, 10:15am Power of Knockout Worker Yes August 01, 2022 10:15am Advance Directive Response Recorded Date/ Time Advance Directives Yes July 09, 2023 8:23am Living Will Yes July 09 8:23am Power of Knockout Worker Yes July 09, 2023 8:23am Advance Directive Response Recorded Date/ Time Advance Directives Yes July 09, 2023 9:23am Living Will Yes July 09 9:23am Power of Knockout Worker Yes July 09, 2023 9:23am Advance Directive Response Recorded Date/ Time Advance Directives Yes July 09, 2023 9:23am Advance Directive Response Recorded Date/ Time Advance Directives Yes March 02 6:29pm Chief Complaint and Reason for Visit Chief Complaint Right hip xray CORRECTION LABWORK MONTHLY EXAM Chief Complaint CORRECTION LABWORK MONTHLY EXAM Chief Complaint CORRECTION LABWORK NEW SYMPTOMS/CONCERN LABWORK MONTHLY EXAM Chief Complaint MONTHLY EXAM MONTH EXAM CORRECTION LAB WORK LEFT KNEE Rm 5 xray Reason for Visit Pes anserinus bursit is of left knee Osteoarthritis of left knee Chief Complaint CORRECTION LAB WOR K LEFT KNEE Rm 5 xray NEW CONCERN/PROBLEM LEFT KNEE room 1 MONTHLY EXAM CORRECTION LABWORK MONTHLY Reason for Visit Pes anserinus bursit is of left knee Osteoarthritis of left knee Pes anserinus bursitis of left knee Osteoarthritis of left knee Chief Complaint NEW CONCERN/PROBLEM LEFT KNEE room 1 MONTHLY EXAM CORRECTION LABWORK MONTHLY MONTHLY EXAM NEW PROBLEM CORRECTION LABWORK Reason for Visit Pes anserinus bursit is of left knee Osteoarthritis of left knee Chief Complaint CORRECTION LABWORK MONTHLY EXAM CORRECTION LAB WORK MONTHLY EXAM NEW CONCERN left knee Reason for Visit Pes anserinus bursit is of left knee Osteoarthritis of left knee Chief Complaint LEFT KNEE RM 5 LABWORK LEFT KNEE LEFT KNEE LEFT KNEE MONTHLY VISIT MONTHLY EXAM CORRECTION LAB WORK Reason for Visit Osteoarthritis of le ft knee Osteoarthritis of left knee Osteoarthritis of left knee Osteoarthritis of left knee Chief Complaint CORRECTION LAB WOR K MONTHLY EXAM - MD MONTHLY EXAM CORRECTION LAB WORK Chief Complaint MONTHLY EXAM MONTHLY EXAM MD CORRECTION LAB WORK MONTHLY EXAM MONTHLY EXAM MD Chief Complaint Admit Date LABWORK August 16, 2024 5 :00am CORRECTION LAB WORK September 16, 2024 5:00am MONTHLY EXAM September 20, 2024 7: 33pm LABWORK October 14, 2024 1 :00am CORRECTION LAB WORK October 17, 2024 5:00am MONTHLY EXAM October 27, 2024 11:58am LABWORK November 14, 2024 5:00 am Chief Complaint Admit Date CORRECTION LAB WORK September 16, 2024 5:00am MONTHLY EXAM September 20, 2024 7: 33pm LABWORK October 14, 2024 1 :00am CORRECTION LAB WORK October 17, 2024 5:00am MONTHLY EXAM October 27, 2024 11:58am LABWORK November 14, 2024 5:00 am MONTHLY EXAM November 15, 2024 5:36 pm LABWORK December 14, 2024 5:00 am Chief Complaint Admit Date LABWORK October 14, 2024 1 :00am CORRECTION LAB WORK October 17, 2024 5:00am MONTHLY EXAM October 27, 2024 11:58am LABWORK November 14, 2024 5:00 am MONTHLY EXAM November 15, 2024 5:36 pm LABWORK December 14, 2024 5:00 am LABWORK January 14, 2025 8:25am Chief Complaint Admit Date LABWORK October 14, 2024 1 :00am CORRECTION LAB WORK October 17, 2024 5:00am MONTHLY EXAM October 27, 2024 11:58am LABWORK November 14, 2024 5:00 am MONTHLY EXAM November 15, 2024 5:36 pm LABWORK December 14, 2024 5:00 am CORRECTION LAB WORK January 12, 2025 5:00 am LABWORK January 14, 2025 8:25am LABWORK January 18, 2025 5:00am Chief Complaint Admit Date LABWORK November 14, 2024 5:00 am MONTHLY EXAM November 15, 2024 5:36 pm LABWORK December 14, 2024 5:00 am Monthly Exam December 16, 2024 5:46 pm CORRECTION LAB WORK January 12, 2025 5:00 am LABWORK January 14, 2025 8:25am LABWORK January 18, 2025 5:00am CORRECTION LAB WORK January 23, 2025 5:0 0am Chief Complaint Admit Date LABWORK December 14, 2024 5:00 am Monthly Exam December 16, 2024 5:46 pm CORRECTION LAB WORK January 12, 2025 5:00 am LABWORK January 14, 2025 8:25am LABWORK January 18, 2025 5:00am CORRECTION LAB WORK January 23, 2025 5:0 0am MONTHLY EXAM January 31, 2025 4:00p m CORRECTION LAB WORK February 13, 2025 5:0 0am LABWORK February 27, 2025 5:00 am Chief Complaint Admit Date LABWORK December 14, 2024 5:00 am Monthly Exam December 16, 2024 5:46 pm CORRECTION LAB WORK January 12, 2025 5:00 am LABWORK January 14, 2025 8:25am LABWORK January 18, 2025 5:00am CORRECTION LAB WORK January 23, 2025 5:0 0am MONTHLY EXAM January 31, 2025 4:00p m CORRECTION LAB WORK February 13, 2025 5:0 0am MONTHLY EXAM February 23, 2025 9:45 am LABWORK February 27, 2025 5:00 am CORRECTION LAB WORK March 06, 2025 3: 47pm CORRECTION LAB WORK March 14, 2025 5:0 0am Chief Complaint Admit Date LABWORK December 14, 2024 5:00 am Monthly Exam December 16, 2024 5:46 pm CORRECTION LAB WORK January 12, 2025 5:00 am LABWORK January 14, 2025 8:25am LABWORK January 18, 2025 5:00am CORRECTION LAB WORK January 23, 2025 5:0 0am MONTHLY EXAM January 31, 2025 4:00p m CORRECTION LAB WORK February 13, 2025 5:0 0am MONTHLY EXAM February 23, 2025 9:45 am LABWORK February 27, 2025 5:00 am NEW CONCERN March 06, 2025 3:00 pm CORRECTION LAB WORK March 06, 2025 3: 47pm CORRECTION LAB WORK March 14, 2025 5:0 0am Additional Source Comments INFORMATION SOURCE (unrecogn ized section and content) DATE CREATED AUTHOR 10/03/2019 [facility] ([place]) DATE CREATED AUTHOR AUTHOR'S ORGANIZ ATION 04/02/2025 [facility] y [facility] Goals (unrecognized section and content) Goals may [...] Inactive Member Role Status Dates Dr. lC Tasng MD Primary Care Provider, Referrin g Provider [...] MD Primary Care Provider Active Zeina Balbuena MOTEL MANAGER, MOTEL MANAGER-C Attending Provider Active Team Status: Inactive Member [...] 2024 End: December 16, 2024 Zeina Balbuena MOTEL MANAGER, MOTEL MANAGER-C Attending Provider Active Start: December 16, 2024 [...] Attending Provider Active Start: February 27, 2025 Team Status: Active Member Role/Relationship Status Dates Dr. Mirella Mccracken DO Family Provider Active Dr. Yesika Faust MD Primary Care Provider Active Team Status: Inactive Member Role/Relationship Status Dates Dr. Yesika Faust MD Primary Care Provider Active Start: December 14, 2024 End: December 14, 2024 Yesika VICENTE MD Attending Provider Active Start: December 14, 2024 End: December 14, 2024 Team Status: Inactive Member Role/Relationship Status Dates Dr. Yesika Faust MD Primary Care Provider Active Start: December 16, 2024 End: December 16, 2024 Zeina Balbuena MOTEL MANAGER, MOTEL MANAGER-C Attending Provider Active Start: December 16, 2024 End: December 16, 2024 Team Status: Inactive Member Role/Relationship Status Dates Dr. Yesika Faust MD Primary Care Provider Active Start: January 12, 2025 End: January 12, 2025 Yesika VICENTE MD Attending Provider Active Start: January 12, 2025 End: January 12, 2025 Team Status: Inactive Member Role/Relationship Status Dates Dr. Yesika Faust MD Primary Care Provider Active Start: January 14, 2025 End: January 14, 2025 Yesika VICENTE MD Attending Provider Active Start: January 14, 2025 End: January 14, 2025 Team Status: Inactive Member Role/Relationship Status Dates Dr. Yesika Faust MD Primary Care Provider Active Start: January 18, 2025 End: January 18, 2025 Yesika VICENTE MD Attending Provider Active Start: January 18, 2025 End: January 18, 2025 Team Status: Active Member Role/Relationship Status Dates Dr. Yseika Faust MD Primary Care Provider Active Start: January 23, 2025 FANTASMA Beauchamp Attending Provider Active Start: January 23, 2025 Team Status: Inactive Member Role/Relationship Status Dates Dr. Yesika Faust MD Primary Care Provider Active Start: January 31, 2025 End: January 31, 2025 Dr. Yesika Faust MD Attending Provider Active Start: January 31, 2025 End: January 31, 2025 Team Status: Active Member Role/Relationship Status Dates Dr. Yesika Faust MD Primary Care Provider Active Start: February 13, 2025 Yesika VICENTE MD Attending Provider Active Start: February 13, 2025 Team Status: Active Member Role/Relationship Status Dates Dr. Yesika Faust MD Primary Care Provider Active Start: February 27, 2025 Yesika VICENTE MD Attending Provider Active Start: February 27, 2025 Team Status: Active Member Role/Relationship Status Dates Dr. Yesika Faust MD Primary Care Provider Active Start: March 06, 2025 Yesika VICENTE MD Attending Provider Active Start: March 06, 2025 Team Status: Active Member Role/Relationship Status Dates Dr. Yesika Faust MD Primary Care Provider Active Start: March 14, 2025 Yesika VICENET MD Attending Provider Active Start: March 14, 2025 Team Status: Inactive Member Role/Relationship Status Dates Dr. Yesika Faust MD Primary Care Provider Active Start: February 23, 2025 End: February 23, 2025 TRUDY Blanco Attending Provider Active St art: February 23, 2025 End: February 23, 2025 Team Status: Active Member Role/Relationship Status Dates Dr. Yesika Faust MD Primary Care Provider Active Start: February 27, 2025 Yesika VICENTE MD Attending Provider Active Start: February 27, 2025 Team Status: Active Member Role/Relationship Status Dates Dr. Yesika Faust MD Primary Care Provider Active Start: March 06, 2025 Yesika VICENTE MD Attending Provider Active Start: March 06, 2025 Team Status: Active Member Role/Relationship Status Dates Dr. Yesika Faust MD Primary Care Provider Active Start: March 14, 2025 Yesika VICENTE MD Attending Provider Active Start: March 14, 2025 Team Status: Inactive Member Role/Relationship Status Dates Dr. Yesika Faust MD Primary Care Provider Active Start: March 06, 2025 End: March 06, 2025 Zeina Balbuena MOTEL MANAGER, MOTEL MANAGER-C Attending Provider Active Start: March 06, 2025 End: March 06, 2025 Team Status: Active Member Role/Relationship Status Dates Dr. Yesika Faust MD Primary Care Provider Active Start: March 06, 2025 Yesika VICENTE MD Attending Provider Active Start: March 06, 2025 Team Status: Active Member Role/Relationship Status Dates Dr. Yesika Faust MD Primary Care Provider Active Start: March 14, 2025 Yesika VICENTE MD Attending Provider Active Start: March 14, 2025 FOR RECORDS PERTAINING TO PATIENTS WHO [...] BE BASED ON THE PRIMARY CLINICAL RECORDS. [employer] provides no warranty or guarantee of the accuracy or completeness of information in this document.
--- OUTSIDE RECORDS SUMMARY | 2025-04-14 04:23 | XMS RPT_ITS | CCD ---
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 Unavailable Art Curry Unavailable Alba Sargent Unavailable Amita Antoine Unavailable [phone] Dick Morris Unavailable [facility] Unavailable Kya Valdivia Unavailable Joe Skinner Unavailable Alyson Dixon Unavailable Unavailable Unavailable Unavailable TRUDY Chambers Attending Provider Dr. Cl Tsang Primary Care Provider MD Cl Tsnag Referring Provider Unavailable Dr. Thom Montiel Attending Provider TRUDY Chambers Referring Provider Esha LABORATORY INSPECTOR, LABORATORY INSPECTOR-C Zeina Attending Provider Dr. Cl Williamson Primary Care Provider Dr. Cl Tsang Primary Care Provider Esha LABORATORY INSPECTOR, LABORATORY INSPECTOR-C Zeina Attending Provider Dr. Cl Williamson Primary Care Provider Esah LABORATORY INSPECTOR, LABORATORY INSPECTOR-C Zeina Attending Provider Dr. Cl Williamson Referring Provider TRUDY Chambers Attending Provider Dr. Thom Montiel Attending Provider Dr. Cl Tsang Primary Care Provider Dr. Cl Tsang Referring Provider TRUDY Chambers Attending Provider Dr. Thom Montiel Attending Provider Esha LABORATORY INSPECTOR, LABORATORY INSPECTOR-C Zeina Attending Provider UnaDr. Tomas Reyna Attending Provider Dr. Yesika Faust Attending Provider [phone] Dr. Cl Tsang Primary Care Provider Dr. Cl Tsang Referring Provider Dr. Thom Montiel Attending Provider Dr. Cl Tsang Primary Care Provider Esha LABORATORY INSPECTOR, LABORATORY INSPECTOR-C Zeina Attending Provider Unav Dr. Yesika Bailey Attending Provider [phone] Dr. Cl Tsang Referring Provider TRUDY Chambers Attending Provider [phone] Dr. Cl Tsang Primary Care Provider Dr. Cl Tsang Referring Provider TRUDY Chambers Attending Provider [phone] Dr. Thom Montiel Attending Provider Esha LABORATORY INSPECTOR, LABORATORY INSPECTOR-C Zeina Attending Provider Dr. Yesika Reed Attending [...] e Oleghe, Efewongbe Primary Care Unavailable [place] LABORATORY INSPECTORZeina Attending Unavailable Oleghe, Efewongbe Primary Care Unavailable [place] LABORATORY INSPECTORZeina Attending Unavailable Oleghe, Efewongbe Primary Care Unavailable [...] Unavailable Oleghe, Efewongbe Primary Care Unavailable [place] LABORATORY INSPECTOR, Zeina Attending Unavailable Oleghe, Efewongbe Attending Unavailable Oleghe, Efewongbe Primary Care Unavailable Oleghe, Efewongbe Primary Care Unavailable [place] LABORATORY INSPECTOR, Zeina Attending Unavailable [place] LABORATORY INSPECTOR, Zeina Attending Unavailable Oleghe, Efewongbe Primary Care Unavailable Oleghe OLS, Efewongbe Attending Unavailabl e Oleghe, Efewongbe Primary Care Unavailable Oleghe, Efewongbe Primary Care Unavailable Miguel Saldivar Attending Unavailable Oleghe OLS, Efewongbe Attending Unavailabl e Oleghe, Efewongbe Primary Care Unavailable Oleghe, Efewongbe Primary Care Unavailable Oleghe, Efewongbe Attending Unavailable [place] LABORATORY INSPECTOR, Zeina Attending Unavailable Oleghe, Efewongbe Primary Care Unavailable Oleghe, Efewongbe Primary Care Unavailable Oleghe, Efewongbe Attending Unavailable Oleghe, Efewongbe Primary Care Unavailable ColttMiguel Attending Unavailable [place] LABORATORY INSPECTOR, Zeina Attending Unavailable Oleghe, Efewongbe Primary Care Unavailable [place] LABORATORY INSPECTOR, Zeina Attending Unavailable Oleghe, Efewongbe Primary Care Unavailable Oleghe, Efewongbe Primary Care Unavailable Oleghe, Efewongbe Attending Unavailable [place] LABORATORY INSPECTOR, Zeina Attending Unavailable Oleghe, Efewongbe Primary Care [...] Translations: [VICODIN] allergy to substance 05-08-20 11 [facility] Work Phone: (18 sources) HYDROcodone; Translations: [HYDROCODONE] allergy to substance 12-30-19 12 Other [facility] Work Phone: (1 source) Sulfonamides (Antibiotic) drug allergy [facility] Work Phone: (18 sources) Acetaminophen / HYDROcodone; [...] sources) Acetaminophen Drug Allergy 09-01-20 22 Other [facility] (15 sources) Sulfamethoxazole Drug Allergy 09-01-20 22 Other [facility] (1 source) Acetaminophen Drug Allergy 02-07-20 [facility] Rep[facility] (1 source) Sulfamethoxazole Drug Allergy 02-07-20 24 [facility] Medications Current Medications Medication Drug Class(es) [...] TABS One tablet by mouth daily ASPIRIN [id number] Kaelyn Ellis RN Start: 11-12-2011 End: 11-12-2011 ASPIRIN LOW DOSE, 81MG (Oral Tablet Delayed Release) [address] qd for 0 days Quantity: 30 {Tablet_DR} Refills: 0 Ordered: 12-Nov-2011 Mirella Mccracken DO, DO, Kathleen Start : 12-Nov-2011 End : 12-Nov-2011 Discontinued End: 04-12-2012 take 1 tablet by mouth once daily ASPIRIN EC 81 MG TBEC One tablet by mouth daily ASPIRIN [id number] Jose Vargas MD cloNIDine hydrochloride 0.1 mg [...] hand docusate sodium 50 mg / sennosides, alf 8.6 mg oral tablet (8 sources) Start: [...] 12:00am Start: 02-07-2024 take 1 capsule by [facility] once daily Duloxetine 60 mg capsule,delayed [...] One tablet by mouth daily DULOXETINE HCL [id number] Jose Vargas MD Comment on above: substitute [...] pain 0 April 09, 2023 12:00am Vit C,Z-Sl-Oecpa-Lutein-Zeax an (10 sources) Start: 05-13-2019 Vit C,E-Zn-Graphite Disk Assembler kw-Mbrwjt-Ufydaz Active 1 EACH PO DAILY May 13, 2019 9:27am Start: 05-13-2019 End: 05-21-2023 Vit C,A-Ud-Osxtz-Lutein-Zeax an Discontinued 1 EACH PO DAILY May 13, 2019 12:00am May 21, 2023 10:07am Start: 05-13-2019 End: 05-21-2023 Vit C,T-Oh-Lqbqt-Lutein-Zeax an Discontinued 1 EACH PO DAILY May 12, 2019 11:00pm May 21, 2023 9:07am Start: 05-13-2019 Vit C,E-Zn-Graphite Disk Assembler zb-Jtuyuo-Qkxytz Active 1 EACH PO DAILY May 12, 2019 11:00pm Start: 05-13-2019 Vit C,E-Zn-Graphite Disk Assembler qq-Nmbbno-Dppiml Active 1 EACH PO DAILY May 13, 2019 12:00am Completed/Discontinued Medications Medication Drug Class(es) Dates Sig (Normalized) Sig (Original) HYDROCODONE-ACETAM INOPHEN (2 sources) Opioid Agonist Start: 05-07-2016 take 1 tablet by mouth once daily at bedtime NORCO 5-325 MG TABS One tablet by mouth daily @ bedtime HYDROCODONE-ACETAMI NOPHEN [id number] Jose Vargas MD Start: 05-07-2016 End: 06-05-2017 take 1 tablet by mouth once daily at bedtime NORCO 5-325 MG TABS One tablet by mouth daily @ bedtime HYDROCODONE-ACETAMINOPHEN [id number] Jose Vargas MD acetaminophen 325 mg / [...] PERCOCET 5-325 MG TABS As needed OXYCODONE-ACETAMINOPHEN [id number] Kaelyn Ellis RN Start: 12-07-2013 PERCOCET 5-325 MG TABS As needed OXYCODONE-ACETAMINOPHEN [id number] Zaria Trevino PA-C Start: 12-07-2013 End: 11-05-2015 PERCOCET 5-325 MG TABS As ne eded OXYCODONE-ACETAMINOPHEN [id number] Zaria Trevino PA-C Start: 02-10-2013 PERCOCET 10-32 5 MG TABS As needed OXYCODONE-ACETAMINOPHEN [id number] Jose Vargas MD Comment on above: thirty [...] One tablet by mouth daily AMIODARONE HCL [id number] Jose Vargas MD Start: 11-25-2011 take 1 tablet by jeffry twice daily AMIODARONE HCL 200 MG TABS One tablet by mouth twice daily AMIODARONE HCL [id number] Jose Vargas MD amoxicillin 500 mg oral [...] One tablet by mouth daily ATORVASTATIN CALCIUM [id number] Zaria Trevino PA-C Start: 11-25-2011 End: 04-06-2014 [...] tablet by mouth daily CALCIUM CARBONATE TABS [id number] Dick Morris DO calcium carbonate / vitamin D (2 sources) Start: 01-06-2012 take 1 tablet by mouth once daily CALCIUM + D 600-200 MG-UNIT TABS One tablet by mouth daily CALCIUM CARBONATE-VITAMIN D [id number] Jose Vargas MD Start: 01-06-2012 End: 04-12-2012 take 1 tablet by mouth once daily CALCIUM + D 600-200 MG-UNIT TABS One tablet by mouth daily CALCIUM CARBONATE-VITAMIN D [id number] Jose Vargas MD casanthranol 30 mg / [...] capsule by mouth every week VITAMIN D3, [id number] (Oral Capsule) 1 (one) Capsule Capsule q week for 0 days Quantity: 4 {Capsule} Refills: 3 Ordered: 29-Nov-2015 Alyson Dixon LPN Start : 13-Jul-2014 End : 29-Nov-2015 Inactive Start: 01-06-2012 End: 04-12-2012 take 1 tablet by mouth once daily VITAMIN D 2000 UNIT TABS One tablet by mouth daily CHOLECALCIFEROL [id number] Jose Vargas MD ciprofloxacin 500 mg oral [...] One tablet by mouth daily CRANBERRY CAPS [id number] Zaria Trevino PA-C CRANBERRY-VITAMIN C, 84-20MG (Oral [...] 0.05 % OINT apply twice daily DESONIDE [id number] Dick Morris DO desoximetasone 2.5 mg/ml topical cream (20 sources) Corticosteroid Start: 05-07-2011 End: 06-05-2011 TOPICORT, 0.25% (External Cream) 1 Cream bid for 0 days Quantity: 1 {Cream} Refills: 0 Ordered: 05-Jun-2011 Alyson Dixon LPN Start : 07-May-2011 End : 05-Jun-2011 Inactive TOPICORT 0.25 % CREA apply twice daily DESOXIMETASONE [id number] Dick Morris DO End: 04-12-2012 TOPICORT 0.25 % CREA apply t wice daily DESOXIMETASONE [id number] Jose Vargas MD diazePAM 2 mg oral [...] tablet by mouth twice daily DIPHENHYDRAMINE HCL [id number] Mary Nolen RN ergocalciferol 35090 unt oral capsule (20 sources) Provitamin D2 Compound Start: 01-12-2009 End: 04-13-2014 take 1 capsule by mouth every week ERGOCALCIFEROL, 81088AHPL (Oral Capsule) 1 Capsule 2 x week for 0 days Quantity: 8 {Capsule} Refills: 3 Ordered: 13-Apr-2014 Alyson Dixon LPN Start : 12-Jan-2009 End : 13-Apr-2014 Inactive End: 01-06-2012 VITAMIN D (ERGOCALCIFEROL) 5 0000 UNIT CAPS one tablet twice a week ERGOCALCIFEROL [id number] Dick Morris DO estradiol 0.025 mg vaginal [...] Inactive Start: 02-10-2013 take 1 tablet by [facility] three times daily GABAPENTIN 300 MG CAPS One tablet by mouth three times daily GABAPENTIN [id number] Jose Vargas MD Start: 02-10-2013 End: 11-05-2015 take 1 tablet by mouth twice daily GABAPENTIN 600 MG TABS One tablet by mouth twice daily GABAPENTIN [id number] Zaria Trevino PA-C Start: 01-06-2012 take 1 tablet by jeffry th three times daily NEURONTIN 100 MG CAPS One tablet by mouth three times daily GABAPENTIN [id number] Jose Vargas MD hydrOXYzine hydrochloride 50 mg oral tablet (18 sources) Antihistamine Start: 05-08-2011 End: 06-05-2011 HYDROXYZINE HCL, 50MG (Oral Tablet) 1 Tablet q6-8 hrs prn itching for 0 days Quantity: 30 {Tablet} Refills: 0 Ordered: 05-Jun-2011 Alyson iDxon LPN Start : 08-May-2011 End : 05-Jun-2011 [...] once daily ISOSORBIDE MONONITRATE ER 30 MG [id number] One tablet by mouth daily (Imdur) ISOSORBIDE MONONITRATE [id number] Zaria Trevino PA-C Start: 04-27-2013 take 1 tablet by jeffry th once daily IMDUR 60 MG [id number] One tablet by mouth daily ISOSORBIDE MONONITRATE [id number] Jose Vargas MD Start: 03-09-2013 take 1 tablet by jeffry th once daily IMDUR 30 MG [id number]-GOP One tablet by mouth daily ISOSORBIDE MONONITRATE [id number] Jose Vargas MD [id number]-[id number] TAB S (2 sources) take 1 tablet by mouth once daily CEREFOLIN TABS One tablet by mouth daily [id number]-[id number] TABS [id number] Dick Morris DO End: 12-22-2011 take 1 tablet by mouth once daily CEREFOLIN TABS One tablet by mouth daily D-[id number]-M76-[id number]-[id number] TABS [id number] Mary Nolen RN lisinopril 5 mg oral tablet (20 sources) Angiotensin Converting Enzyme Inhibitor Start: 04-24-2014 End: 06-27-2014 take 1 tablet by mouth once daily LISINOPRIL 2.5 MG TABS One tablet by mouth daily LISINOPRIL [id number] Kaelyn Ellis RN Start: 12-07-2013 End: 04-10-2014 take 1 tablet by mouth once daily LISINOPRIL 5 MG TABS One tablet by mouth daily LISINOPRIL [id number] Jose Vargas MD Start: 04-27-2013 End: 11-05-2015 [...] TABS One tablet by mouth daily LUTEIN [id number] Zaria Trevino PA-C End: 07-08-2012 take 1 tablet by mouth once daily LUTEIN CAPS One tablet by mouth daily LUTEIN CAPS [id number] Dick Morris DO melatonin 3 mg / [...] TABS One tablet by mouth daily MELOXICAM [id number] Zaria Trevino PA-C metaxalone 800 mg oral [...] tablet by mouth twice daily METOPROLOL TARTRATE [id number] Jose Vargas MD Start: 03-11-2012 End: 04-06-2014 [...] tablet by mouth twice daily METOPROLOL TARTRATE [id number] Jose Vargas MD Multivitamin preparation (18 sources) End: 11-29-2015 MULTIVITAMIN (Oral Liquid) for 0 days Refills: 0 Ordered: 29-Nov-2015 Alyson Dixon LPN End : 29-Nov-2015 Inactive nitroglycerin 0.4 mg sublingual tablet (20 sources) Nitrate Vasodilator Start: 01-06-2012 End: 04-10-2014 NITROSTAT 0.4 MG SUBL 1 tablet under tongue every 5 min up to 3 X NITROGLYCERIN [id number] Jose Vargas MD Start: 12-26-2011 End: 11-29-2015 [...] CPDR One capsule by mouth daily OMEPRAZOLE [id number] Lex Munoz Start: 12-31-2011 End: 06-20-2013 PRILOSEC, 20MG (Oral Capsule Delayed Release) [address] qd for 0 days Quantity: 30 {Capsule_DR} Refills: 0 Ordered: 20-Jun-2013 FRANCI Castelan Start : 31-Dec-2011 End : 20-Jun-2013 Inactive End: 12-22-2011 take 1 tablet by mouth once daily PRILOSEC 10 MG CPDR One tablet by mouth daily OMEPRAZOLE [id number] Dick Morris DO pantoprazole 20 mg delayed release oral tablet (2 sources) Proton Pump Inhibitor End: 04-12-2012 take 1 tablet by mouth once daily PROTONIX 20 MG TBEC One tablet by mouth daily PANTOPRAZOLE SODIUM [id number] Jose Vargas MD pravastatin sodium 80 mg [...] Three tablets by mouth daily PREDNISONE TABS [id number] Mary Nolen RN take 3 tablets by mo uth once daily PREDNISONE TABS Three tablets by mouth daily PREDNISONE TABS [id number] Dick Neo Morris DO pregabalin 25 mg [...] One tablet by mouth daily ROSUVASTATIN CALCIUM [id number] Jose Vargas MD Comment on above: substitute generic Mail order. DOCUSATE SODIUM CAPS (2 sources) COLACE CAPS as n eeded DOCUSATE SODIUM CAPS [id number] Dick Morris DO End: 10-10-2014 COLACE CAPS as needed 10/10 DOCUSATE SODIUM CAPS [id number] Zaria Trevino PA-C 28 actuat teriparatide 0.02 [...] mouth once daily DETROL LA 4 MG [id number]-EHM One tablet by mouth daily TOLTERODINE TARTRATE [id number] Mary Nolen RN take 1 tablet by jeffry th once daily DETROL LA 4 MG [id number] One tablet by mouth daily TOLTERODINE TARTRATE [id number] Dick Morris DO traMADol hydrochloride 50 mg [...] mouth three times daily TRAMADOL HCL TABS [id number] Dick Morris DO End: 12-22-2011 take 1 tablet by mouth three times daily ULTRAM TABS One tablet by mouth three times daily TRAMADOL HCL TABS [id number] Mary Nolen RN Comment on above: [age]-- [...] : 01-Dec-2013 End : 06-Apr-2014 Inactive Vit C,O-Iv-Mzicr-Lutein-Ze axan 1 EACH capsule (8 sources) Start: 019 End: take 1 capsule by mouth once daily Vit C,V-Ta-Fukgt-Lutein-Z eaxan 1 EACH capsule Discontinued 1 NMA PO DAILY May 13, 2019 12:00am May 21, 2023 10:07am CHOLECALCIFEROL (4 sources) Start: End: take 1 tablet by mouth once daily VITAMIN D 1000 UNIT TABS One tablet by mouth daily CHOLECALCIFEROL [id number] Zaria Trevino PA-C Start: 11-02-2015 take 1 tablet by jeffry th once daily VITAMIN D 1000 UNIT TABS One tablet by mouth daily CHOLECALCIFEROL [id number] Mary Nolen RN Start: 02-10-2013 End: 10-10-2014 take 1 tablet by mouth once daily VITAMIN D 1000 UNIT TABS One tablet by mouth daily CHOLECALCIFEROL [id number] Zaria Trevino PA-C Start: 02-10-2013 take 1 tablet by jeffry th once daily VITAMIN D 1000 UNIT TABS One tablet by mouth daily CHOLECALCIFEROL [id number] Jose Vargas MD Problems Active Problems Problem [...] disease (20 sources) Atherosclerotic heart disease of [place] coronary artery without angina pectoris; Translations: [Coronary [...] current use of drug therapy; Translations: [Other mcc (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 therapy] 11-23-2017 Episodic Other bone [...] (current) use of other medications; Translations: [Other terminal block assembler (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 therapy] Onset: 07-08-2013 Resolved: 05-11-2015 [...] p laced her on asa-- cardio at [facility]- he said no more plavix ever- rec [...] p laced her on asa-- cardio at [facility]- he said no more plavix ever- rec [...] Auto (Unsp spec) [#/Vol] 2.03 10*3/uL 0.83-4.51 [facility] Absolute neutrophil countOrd ered By: Yesika Faust on 03-14-2025 Neutrophils (Bld) [#/Vol] 3.4 10*3/uL 2.0-7.7 [facility] Anion gap in Serum or Plasma Ordered By: Yesika Faust on 03-14-2025 Anion gap [Moles/Vol] 9 mmol/L 5-15 [facility] Automated lymphocyte count a s percentage of total leukocytesOrdered By: Yesika Faust on 03-14-2025 Lymphocytes/100 WBC Auto (Unsp spec) 31.4 % 19-41 [facility] BUN/creatinine ratioOrdered By: Yesika Faust on 03-14-2025 Urea nitrogen/Creatinine [Mass ratio] 38.6 mg/mg High 10-20 [facility] Basophil percentageOrdered B y: Yesika Faust on 03-14-2025 Basophils/100 WBC (Bld) 0.5 % 0-1 [facility] Carbon dioxide, total [Moles /volume] in Central venous bloodOrdered By: Tadenriquetasaeidmacarena Butterfieldkathierafaela on 03-14-2025 CO2 [Moles/Vol] 28.1 mmol/L 21.0-32.0 [facility] Chloride assayOrdered By: Tad shymacarena Butterfieldkathierafaela on 03-14-2025 Chloride [Moles/Vol] 105 mmol/L 98-108 [facility] Eosinophil percentageOrdered By: Tadenriquetasaeidmacarena Butterfieldkathierafaela on 03-14-2025 Eosinophils/100 WBC (Bld) 5.6 % High 0-5 [facility] Erythrocyte distribution wid th ratioOrdered By: Tadenriquetadenae Scoutkathierafaela on 03-14-2025 Erythrocyte distribution width (RBC) [Ratio] 12.8 % 11.6-14.6 [facility] Erythrocyte distribution wid th standard deviationOrdered By: ky Scotukathierafaela on 03-14-2025 Erythrocyte distribution width (RBC) [Ratio] 46.6 fl High 35.1-43.9 [facility] Glomerular filtration rate ( GFR) estimation/1.73 sq m using serum, plasma, or whole bOrdered By: Tadky Butterfieldkathierafaela on 03-14-2025 GFR/1.73 sq M.predicted among non-blacks MDRD (S/P/Bld) [Vol rate/Area] 88 mL/min/{1.73_m2} >60 [facility] Comment on above: mL/min/1.73m2 CKD-EP I Creatinine Equation (2020) Hematocrit Auto (Bld) [Volum e fraction]Ordered By: Yeskia Faust on 03-14-2025 Hematocrit (Bld) [Volume fraction] 39.8 % 37-47 [facility] Hemoglobin measurementOrdere d By: Yesika Faust on 03-14-2025 Hemoglobin (Bld) [Mass/Vol] 12.8 g/dL 12.0-15.0 [facility] Immature granulocytes/100 WB C Auto (Bld)Ordered By: Yesika Faust on 03-14-2025 Immature granulocytes/100 WBC (Bld) 0.600 % 0.0-0.9 [facility] Comment on above: IG% - Immature Granu locytes (promyelocytes, myelocytes and metamyelocytes) > 1% indicates that a LEFT SHIFT is Present. MCV (mean corpuscular volume ) determinationOrdered By: Yesika Faust on 03-14-2025 MCV (RBC) [Entitic vol] 99.0 fL 81-99 [facility] Mean corpuscular hemoglobin (MCH) determinationOrdered By: Yesika Faust on 03-14-2025 MCH (RBC) [Entitic mass] 31.8 pg 27.0-32.0 [facility] Mean corpuscular hemoglobin concentration (MCHC) determinationOrdered By: Yesika Faust on 03-14-2025 MCHC (RBC) [Mass/Vol] 32.2 g/dL 32-36 [facility] Mean platelet volume determi nationOrdered By: Yesika Faust on 03-14-2025 Platelet mean volume (Bld) [Entitic vol] 10.4 fL 6.2-12.0 [facility] Monocyte percentageOrdered B y: Yesika Faust on 03-14-2025 Monocytes/100 WBC (Bld) 10.2 % High 0-10 [facility] Neutrophil percentageOrdered By: Yesika Faust on 03-14-2025 Neutrophils/100 WBC (Bld) 51.7 % 47-70 [facility] Nucleated red blood cell per centageOrdered By: Yesika Faust on 03-14-2025 Nucleated RBC/100 WBC (Bld) [Ratio] 0 % 0-5 [facility] Platelet countOrdered By: Tad Faust on 03-14-2025 Platelets (Bld) [#/Vol] 238 10*3/uL 150-450 [facility] Potassium measurement (mass/ volume)Ordered By: Yesika Faust on 03-14-2025 Potassium (Unsp spec) [Mass/Vol] 4.1 mmol/L 3.3-5.1 [facility] RBC Auto (Bld) [#/Vol]Ordere d By: Yesika Faust on 03-14-2025 RBC (Bld) [#/Vol] 4.02 10*6/uL Low 4.2-5.4 [facility] Serum creatinine measurement (mass/volume)Ordered By: Yesika Faust on 03-14-2025 Creatinine [Mass/Vol] 0.60 mg/dL Low 0.70-1.20 [facility] Serum glucose measurement (m ass/volume)Ordered By: Yesika Faust on 03-14-2025 Glucose [Mass/Vol] 82 mg/dL 70-[address] [facility] Serum or plasma calcium madi urement (mass/volume)Ordered By: Yesika Faust on 03-14-2025 Calcium [Mass/Vol] 9.1 mg/dL 7.6-11.[address] [facility] Serum or plasma urea nitroge n measurement (mass/volume)Ordered By: Yesika Faust on 03-14-2025 Urea nitrogen [Mass/Vol] 23 mg/dL High 4-19 [facility] Sodium levelOrdered By: Jed Faust on 03-14-2025 Sodium [Moles/Vol] 142 mmol/L 133-[address] [facility] White blood cell (WBC) count Ordered By: Yesika Faust on 03-14-2025 WBC (Bld) [#/Vol] 6.5 10*3/uL 4.4-11.[address] [facility] Bilirubin Test strip Ql (U)O rdered By: Yesika Faust on 03-06-2025 Bilirubin Ql (U) Negative Negative [facility] Ketones Test strip Ql (U)Ord ered By: Yesika Faust on 03-06-2025 Ketones Ql (U) 5 mg/dl High Negative [facility] Nitrite Test strip Ql (U)Ord ered By: Yesika Faust on 03-06-2025 Nitrite Ql (U) Negative Negative [facility] Protein Test strip Ql (U)Ord ered By: Yesika Faust on 03-06-2025 Protein Ql (U) 100 mg/dl High Negative [facility] Urine clarityOrdered By: Randall Faust on 03-06-2025 Clarity (U) Turbid Clear [facility] Urine color determinationOrd ered By: Yesika Faust on 03-06-2025 Color (U) Yellow Yellow [facility] Urine cultureOrdered By: Randall Faust on 03-06-2025 Bacteria identified Cx Nom (U) Proteus mirabilis Abnormal [facility] Urine glucose detectionOrder ed By: Yesika Faust on 03-06-2025 Glucose Ql (U) Normal mg/dl Normal [facility] Urine leukocyte esterase det ection by dipstickOrdered By: Yesika Faust on 03-06-2025 Leukocyte esterase Test strip Ql (U) 500 /ul High Negative [facility] Urine pHOrdered By: Fernando Faust on 03-06-2025 pH (U) 6.0 [pH] 5.0 - 8.0 [facility] Urine specific gravity measu rementOrdered By: Yesika Faust on 03-06-2025 Specific gravity (U) [Rel density] 1.020 1.002-1.03 0 [facility] Urine urobilinogen measureme ntOrdered By: Yesika Faust on 03-06-2025 Urobilinogen Ql (U) Normal mg/dl Normal [facility] Serum or plasma valproate me asurement (mass/volume)Ordered By: Yesika Faust on 02-27-2025 Valproate [Mass/Vol] 15 ug/mL Low 50-100 [facility] Comment on above: Valproic Acid concen trations >100 ug/mL are potentially toxic. Absolute lymphocyte countOrd ered By: Yesika Faust on 02-13-2025 Lymphocytes Auto (Unsp spec) [#/Vol] 1.82 10*3/uL 0.83-4.51 [facility] Absolute neutrophil countOrd ered By: Yesika Faust on 02-13-2025 Neutrophils (Bld) [#/Vol] 3.5 10*3/uL 2.0-7.7 [facility] Anion gap in Serum or Plasma Ordered By: Yesika Faust on 02-13-2025 Anion gap [Moles/Vol] 10 mmol/L 5-15 [facility] Automated lymphocyte count a s percentage of total leukocytesOrdered By: Yesika Faust on 02-13-2025 Lymphocytes/100 WBC Auto (Unsp spec) 29.1 % 19-41 [facility] BUN/creatinine ratioOrdered By: Yesika Faust on 02-13-2025 Urea nitrogen/Creatinine [Mass ratio] 32.3 mg/mg High 10-20 [facility] Basophil percentageOrdered B y: Yesika Faust on 02-13-2025 Basophils/100 WBC (Bld) 0.6 % 0-1 [facility] Carbon dioxide, total [Moles /volume] in Central venous bloodOrdered By: Yesika Faust on 02-13-2025 CO2 [Moles/Vol] 28.1 mmol/L 21.0-32.0 [facility] Chloride assayOrdered By: Tad Faust on 02-13-2025 Chloride [Moles/Vol] 101 mmol/L 98-108 [facility] Eosinophil percentageOrdered By: ky Faust on 02-13-2025 Eosinophils/100 WBC (Bld) 3.7 % 0-5 [facility] Erythrocyte distribution wid th ratioOrdered By: Yesika Faust on 02-13-2025 Erythrocyte distribution width (RBC) [Ratio] 12.9 % 11.6-14.6 [facility] Erythrocyte distribution wid th standard deviationOrdered By: enriquetahartsdalemacarena Faust on 02-13-2025 Erythrocyte distribution width (RBC) [Ratio] 46.5 fl High 35.1-43.9 [facility] Glomerular filtration rate ( GFR) estimation/1.73 sq m using serum, plasma, or whole bOrdered By: Yesika Faust on 02-13-2025 GFR/1.73 sq M.predicted among non-blacks MDRD (S/P/Bld) [Vol rate/Area] 87 mL/min/{1.73_m2} >60 [facility] Comment on above: mL/min/1.73m2 CKD-EP I Creatinine Equation (2020) Hematocrit Auto (Bld) [Volum e fraction]Ordered By: Yesika Faust on 02-13-2025 Hematocrit (Bld) [Volume fraction] 43.2 % 37-47 [facility] Hemoglobin measurementOrdere d By: Yesika Faust on 02-13-2025 Hemoglobin (Bld) [Mass/Vol] 13.9 g/dL 12.0-15.0 [facility] Immature granulocytes/100 WB C Auto (Bld)Ordered By: ky Faust on 02-13-2025 Immature granulocytes/100 WBC (Bld) 0.300 % 0.0-0.9 [facility] Comment on above: IG% - Immature Granu locytes (promyelocytes, myelocytes and metamyelocytes) > 1% indicates that a LEFT SHIFT is Present. MCV (mean corpuscular volume ) determinationOrdered By: Yesika Faust on 02-13-2025 MCV (RBC) [Entitic vol] 97.7 fL 81-99 [facility] Mean corpuscular hemoglobin (MCH) determinationOrdered By: enriquetahartsdalemacarena Faust on 02-13-2025 MCH (RBC) [Entitic mass] 31.4 pg 27.0-32.0 [facility] Mean corpuscular hemoglobin concentration (MCHC) determinationOrdered By: Yesika Faust on 02-13-2025 MCHC (RBC) [Mass/Vol] 32.2 g/dL 32-36 [facility] Mean platelet volume determi nationOrdered By: Yesika Faust on 02-13-2025 Platelet mean volume (Bld) [Entitic vol] 10.3 fL 6.2-12.0 [facility] Monocyte percentageOrdered B y: Yesika Faust on 02-13-2025 Monocytes/100 WBC (Bld) 10.7 % High 0-10 [facility] Neutrophil percentageOrdered By: Yesika Faust on 02-13-2025 Neutrophils/100 WBC (Bld) 55.6 % 47-70 [facility] Nucleated red blood cell per centageOrdered By: Yesika Faust on 02-13-2025 Nucleated RBC/100 WBC (Bld) [Ratio] 0 % 0-5 [facility] Platelet countOrdered By: Tad Faust on 02-13-2025 Platelets (Bld) [#/Vol] 231 10*3/uL 150-450 [facility] Potassium measurement (mass/ volume)Ordered By: Yesika Faust on 02-13-2025 Potassium (Unsp spec) [Mass/Vol] 4.0 mmol/L 3.3-5.1 [facility] RBC Auto (Bld) [#/Vol]Ordere d By: Yesika Faust on 02-13-2025 RBC (Bld) [#/Vol] 4.42 10*6/uL 4.2-5.4 [facility] Serum creatinine measurement (mass/volume)Ordered By: Yesika Faust on 02-13-2025 Creatinine [Mass/Vol] 0.62 mg/dL Low 0.70-1.20 [facility] Serum glucose measurement (m ass/volume)Ordered By: Yesika Faust on 02-13-2025 Glucose [Mass/Vol] 88 mg/dL 70-[address] [facility] Serum or plasma calcium madi urement (mass/volume)Ordered By: Yesika Faust on 02-13-2025 Calcium [Mass/Vol] 9.3 mg/dL 7.6-11.[address] [facility] Serum or plasma urea nitroge n measurement (mass/volume)Ordered By: Yesika Faust on 02-13-2025 Urea nitrogen [Mass/Vol] 20 mg/dL High 4-19 [facility] Sodium levelOrdered By: Jed jiangbert Christianne on 02-13-2025 Sodium [Moles/Vol] 140 mmol/L 133-[address] [facility] White blood cell (WBC) count Ordered By: Yesika Faust on 02-13-2025 WBC (Bld) [#/Vol] 6.3 10*3/uL 4.4-11.[address] [facility] Potassium measurement (mass/ volume)Ordered By: Zeina Balbuena on 01-23-2025 Potassium (Unsp spec) [Mass/Vol] 3.8 mmol/L 3.3-5.1 [facility] Absolute lymphocyte countOrd ered By: Yesika Faust on 01-18-2025 Lymphocytes Auto (Unsp spec) [#/Vol] 1.51 10*3/uL 0.83-4.51 [facility] Absolute neutrophil countOrd ered By: Yesika Faust on 01-18-2025 Neutrophils (Bld) [#/Vol] 3.9 10*3/uL 2.0-7.7 [facility] Anion gap in Serum or Plasma Ordered By: Yesika Faust on 01-18-2025 Anion gap [Moles/Vol] 12 mmol/L 5-15 [facility] Automated lymphocyte count a s percentage of total leukocytesOrdered By: Yesika Faust on 01-18-2025 Lymphocytes/100 WBC Auto (Unsp spec) 23.4 % 19-41 [facility] BUN/creatinine ratioOrdered By: Yesika Faust on 01-18-2025 Urea nitrogen/Creatinine [Mass ratio] 36.2 mg/mg High 10-20 [facility] Basophil percentageOrdered B y: Yesika Faust on 01-18-2025 Basophils/100 WBC (Bld) 0.6 % 0-1 [facility] Bilirubin directOrdered By: Yesika Faust on 01-18-2025 Bilirubin.direct [Mass/Vol] 0.11 mg/dL 0.00-0.30 [facility] Bilirubin, totalOrdered By: Yesika Faust on 01-18-2025 Bilirubin [Mass/Vol] 0.25 mg/dL 0.00-1.30 [facility] Carbon dioxide, total [Moles /volume] in Central venous bloodOrdered By: Yesika Faust on 01-18-2025 CO2 [Moles/Vol] 22.7 mmol/L 21.0-32.0 [facility] Chloride assayOrdered By: Tad Faust on 01-18-2025 Chloride [Moles/Vol] 107 mmol/L 98-108 [facility] Eosinophil percentageOrdered By: Yesika Faust on 01-18-2025 Eosinophils/100 WBC (Bld) 6.1 % High 0-5 [facility] Erythrocyte distribution wid th ratioOrdered By: Yesika Faust on 01-18-2025 Erythrocyte distribution width (RBC) [Ratio] 13.4 % 11.6-14.6 [facility] Erythrocyte distribution wid th standard deviationOrdered By: Yesika Faust on 01-18-2025 Erythrocyte distribution width (RBC) [Ratio] 46.6 fl High 35.1-43.9 [facility] Glomerular filtration rate ( GFR) estimation/1.73 sq m using serum, plasma, or whole bOrdered By: Yesika Faust on 01-18-2025 GFR/1.73 sq M.predicted among non-blacks MDRD (S/P/Bld) [Vol rate/Area] 80 mL/min/{1.73_m2} >60 [facility] Comment on above: mL/min/1.73m2 CKD-EP I Creatinine Equation (2020) Hematocrit Auto (Bld) [Volum e fraction]Ordered By: Yesika Faust on 01-18-2025 Hematocrit (Bld) [Volume fraction] 42.1 % 37-47 [facility] Hemoglobin measurementOrdere d By: Yesika Faust on 01-18-2025 Hemoglobin (Bld) [Mass/Vol] 14.2 g/dL 12.0-15.0 [facility] Immature granulocytes/100 WB C Auto (Bld)Ordered By: Yesika Faust on 01-18-2025 Immature granulocytes/100 WBC (Bld) 0.500 % 0.0-0.9 [facility] Comment on above: IG% - Immature Granu locytes (promyelocytes, myelocytes and metamyelocytes) > 1% indicates that a LEFT SHIFT is Present. Laboratory - Chemistry and C hemistry - challengeOrdered By: Yesika Faust on 01-18-2025 AST [Catalytic activity/Vol] 19 U/L <32 [facility] MCV (mean corpuscular volume ) determinationOrdered By: Yesika Faust 01-18-2025 MCV (RBC) [Entitic vol] 94.4 fL 81-99 [facility] Mean corpuscular hemoglobin (MCH) determinationOrdered By: Yesika Faust on 01-18-2025 MCH (RBC) [Entitic mass] 31.8 pg 27.0-32.0 [facility] Mean corpuscular hemoglobin concentration (MCHC) determinationOrdered By: Yesika Faust on 01-18-2025 MCHC (RBC) [Mass/Vol] 33.7 g/dL 32-36 [facility] Mean platelet volume determi nationOrdered By: Yesika Faust on 01-18-2025 Platelet mean volume (Bld) [Entitic vol] 11.6 fL 6.2-12.0 [facility] Monocyte percentageOrdered B y: Yesika Faust on 01-18-2025 Monocytes/100 WBC (Bld) 9.3 % 0-10 [facility] Neutrophil percentageOrdered By: Yesika Faust on 01-18-2025 Neutrophils/100 WBC (Bld) 60.1 % 47-70 [facility] Nucleated red blood cell per centageOrdered By: Yesika Faust on 01-18-2025 Nucleated RBC/100 WBC (Bld) [Ratio] 0 % 0-5 [facility] Platelet countOrdered By: Tad Faust on 01-18-2025 Platelet count TNP [facility] Comment on above: Test not performedPl ease [...] Platelets LM Ql (Bld) SLT DEC ADEQ [facility] Potassium measurement (mass/ volume)Ordered By: Yesika Faust on 01-18-2025 Potassium (Unsp spec) [Mass/Vol] 5.6 mmol/L High 3.3-5.1 [facility] RBC Auto (Bld) [#/Vol]Ordere d By: Yesika Faust on 01-18-2025 RBC (Bld) [#/Vol] 4.46 10*6/uL 4.2-5.4 [facility] Serum creatinine measurement (mass/volume)Ordered By: Yesika Faust on 01-18-2025 Creatinine [Mass/Vol] 0.73 mg/dL 0.70-1.20 [facility] Serum globulin measurementOr dered By: Yesika Faust on 01-18-2025 Globulin (S) [Mass/Vol] 2.5 g/dL 2.2-4.2 [facility] Serum glucose measurement (m ass/volume)Ordered By: Yesika Faust on 01-18-2025 Glucose [Mass/Vol] 84 mg/dL 70-[address] [facility] Serum or plasma alanine vela otransferase (ALT) measurementOrdered By: Yesika Fauts on 01-18-2025 ALT [Catalytic activity/Vol] 14 U/L <35 [facility] Serum or plasma albumin madi urement (mass/volume)Ordered By: Yesika Faust on 01-18-2025 Albumin [Mass/Vol] 3.7 g/dL 3.4-4.[address] [facility] Serum or plasma alkaline mariaelena sphatase measurementOrdered By: Yesika Faust on 01-18-2025 ALP [Catalytic activity/Vol] 106 U/L High 35-104 [facility] Serum or plasma calcium madi urement (mass/volume)Ordered By: Yesika Faust on 01-18-2025 Calcium [Mass/Vol] 9.1 mg/dL 7.6-11.[address] [facility] Serum or plasma urea nitroge n measurement (mass/volume)Ordered By: Yesika Faust on 01-18-2025 Urea nitrogen [Mass/Vol] 27 mg/dL High 4-19 [facility] Sodium levelOrdered By: Jed Faust on 01-18-2025 Sodium [Moles/Vol] 141 mmol/L 133-[address] [facility] Total proteinOrdered By: Randall Faust on 01-18-2025 Protein [Mass/Vol] 6.1 g/dL 5.9-8.[address] [facility] White blood cell (WBC) count Ordered By: Yesika Faust on 01-18-2025 WBC (Bld) [#/Vol] 6.4 10*3/uL 4.4-11.[address] [facility] Bilirubin Test strip Ql (U)O rdered By: Yesika Faust on 01-14-2025 Bilirubin Ql (U) Negative Negative [facility] Ketones Test strip Ql (U)Ord ered By: Yesika Faust on 01-14-2025 Ketones Ql (U) Negative Negative [facility] Nitrite Test strip Ql (U)Ord ered By: Yesika Faust on 01-14-2025 Nitrite Ql (U) Negative Negative [facility] Protein Test strip Ql (U)Ord ered By: Yesika Faust on 01-14-2025 Protein Ql (U) 30 mg/dl High Negative [facility] Urine clarityOrdered By: Randall Faust on 01-14-2025 Clarity (U) Cloudy Clear [facility] Urine color determinationOrd ered By: Yesika Faust on 01-14-2025 Color (U) Yellow Yellow [facility] Urine cultureOrdered By: Randall Faust on 01-14-2025 Bacteria identified Cx Nom (U) Proteus mirabilis Abnormal [facility] Urine glucose detectionOrder ed By: Yesika Faust on 01-14-2025 Glucose Ql (U) Normal mg/dl Normal [facility] Urine leukocyte esterase det ection by dipstickOrdered By: Yesika Faust on 01-14-2025 Leukocyte esterase Test strip Ql (U) 500 /ul High Negative [facility] Urine pHOrdered By: Fernando Faust on 01-14-2025 pH (U) 7.0 [pH] 5.0 - 8.0 [facility] Urine specific gravity measu rementOrdered By: Yesika Faust on 01-14-2025 Specific gravity (U) [Rel density] 1.010 1.002-1.03 0 [facility] Urine urobilinogen measureme ntOrdered By: Yesika Faust on 01-14-2025 Urobilinogen Ql (U) Normal mg/dl Normal [facility] Absolute lymphocyte countOrd ered By: Yesika Faust on 01-12-2025 Lymphocytes Auto (Unsp spec) [#/Vol] 1.66 10*3/uL 0.83-4.51 [facility] Absolute neutrophil countOrd ered By: Yesika Faust on 01-12-2025 Neutrophils (Bld) [#/Vol] 3.2 10*3/uL 2.0-7.7 [facility] Anion gap in Serum or Plasma Ordered By: Yesika Faust on 01-12-2025 Anion gap [Moles/Vol] 13 mmol/L 5-15 [facility] Automated lymphocyte count a s percentage of total leukocytesOrdered By: Yesika Faust on 01-12-2025 Lymphocytes/100 WBC Auto (Unsp spec) 27.6 % 19-41 [facility] BUN/creatinine ratioOrdered By: Yesika Faust on 01-12-2025 Urea nitrogen/Creatinine [Mass ratio] 36.9 mg/mg High 10-20 [facility] Basophil percentageOrdered B y: Yesika Faust on 01-12-2025 Basophils/100 WBC (Bld) 0.8 % 0-1 [facility] Bilirubin directOrdered By: Yesika Faust on 01-12-2025 Bilirubin.direct [Mass/Vol] 0.11 mg/dL 0.00-0.30 [facility] Bilirubin, totalOrdered By: Yesika Faust on 01-12-2025 Bilirubin [Mass/Vol] 0.24 mg/dL 0.00-1.30 [facility] Carbon dioxide, total [Moles /volume] in Central venous bloodOrdered By: Yesika Faust on 01-12-2025 CO2 [Moles/Vol] 22.3 mmol/L 21.0-32.0 [facility] Chloride assayOrdered By: Tad Faust on 01-12-2025 Chloride [Moles/Vol] 106 mmol/L 98-108 [facility] Eosinophil percentageOrdered By: Yesika Faust on 01-12-2025 Eosinophils/100 WBC (Bld) 7.2 % High 0-5 [facility] Erythrocyte distribution wid th ratioOrdered By: Yesika Faust on 01-12-2025 Erythrocyte distribution width (RBC) [Ratio] 13.5 % 11.6-14.6 [facility] Erythrocyte distribution wid th standard deviationOrdered By: Yesika Faust on 01-12-2025 Erythrocyte distribution width (RBC) [Ratio] 47.9 fl High 35.1-43.9 [facility] Glomerular filtration rate ( GFR) estimation/1.73 sq m using serum, plasma, or whole bOrdered By: Yesika Faust on 01-12-2025 GFR/1.73 sq M.predicted among non-blacks MDRD (S/P/Bld) [Vol rate/Area] 84 mL/min/{1.73_m2} >60 [facility] Comment on above: mL/min/1.73m2 CKD-EP I Creatinine Equation (2020) Hematocrit Auto (Bld) [Volum e fraction]Or[facility] 01-12-2025 Hematocrit (Bld) [Volume fraction] 40.4 % 37-47 [facility] Hemoglobin measurementOrdere d By: Yesika Faust on 01-12-2025 Hemoglobin (Bld) [Mass/Vol] 13.3 g/dL 12.0-15.0 [facility] Immature granulocytes/100 WB C Auto (Bld)Ordered By: Yesika Faust on 01-12-2025 Immature granulocytes/100 WBC (Bld) 0.300 % 0.0-0.9 [facility] Comment on above: IG% - Immature Granu locytes (promyelocytes, myelocytes and metamyelocytes) > 1% indicates that a LEFT SHIFT is Present. Laboratory - Chemistry and C hemistry - challengeOrdered By: Yesika Faust on 01-12-2025 AST [Catalytic activity/Vol] 16 U/L <32 [facility] MCV (mean corpuscular volume ) determinationOrdered By: Yesika Faust 5 MCV (RBC) [Entitic vol] 97.1 fL 81-99 [facility] Mean corpuscular hemoglobin (MCH) determinationOrdered By: Tadenriquetasaeidmacarena Faust on 01-12-2025 MCH (RBC) [Entitic mass] 32.0 pg 27.0-32.0 [facility] Mean corpuscular hemoglobin concentration (MCHC) determinationOrdered By: Yesika Faust on 01-12-2025 MCHC (RBC) [Mass/Vol] 32.9 g/dL 32-36 [facility] Mean platelet volume determi nationOrdered By: Jedsaeidmacarena Faust on 01-12-2025 Platelet mean volume (Bld) [Entitic vol] 10.7 fL 6.2-12.0 [facility] Monocyte percentageOrdered B y: Yesika Fauts on 01-12-2025 Monocytes/100 WBC (Bld) 10.8 % High 0-10 [facility] Neutrophil percentageOrdered By: Yesika Faust on 01-12-2025 Neutrophils/100 WBC (Bld) 53.3 % 47-70 [facility] Nucleated red blood cell per centageOrdered By: enriquetasaeidmacarena Faust on 01-12-2025 Nucleated RBC/100 WBC (Bld) [Ratio] 0 % 0-5 [facility] Platelet countOrdered By: Tda shymacarena Faust on 01-12-2025 Platelets (Bld) [#/Vol] 233 10*3/uL 150-450 [facility] Potassium measurement (mass/ volume)Ordered By: Yesika Faust on 01-12-2025 Potassium (Unsp spec) [Mass/Vol] 4.4 mmol/L 3.3-5.1 [facility] RBC Auto (Bld) [#/Vol]Ordere d By: Yesika Faust on 01-12-2025 RBC (Bld) [#/Vol] 4.16 10*6/uL Low 4.2-5.4 [facility] Serum creatinine measurement (mass/volume)Ordered By: Yesika Faust on 01-12-2025 Creatinine [Mass/Vol] 0.71 mg/dL 0.70-1.20 [facility] Serum globulin measurementOr dered By: Yesika Faust on 01-12-2025 Globulin (S) [Mass/Vol] 2.2 g/dL 2.2-4.2 [facility] Serum glucose measurement (m ass/volume)Ordered By: Yesika Faust on 01-12-2025 Glucose [Mass/Vol] 95 mg/dL 70-[address] [facility] Serum or plasma alanine vela otransferase (ALT) measurementOrdered By: Yesika Faust on 01-12-2025 ALT [Catalytic activity/Vol] 12 U/L <35 [facility] Serum or plasma albumin madi urement (mass/volume)Ordered By: Yesika Faust on 01-12-2025 Albumin [Mass/Vol] 3.5 g/dL 3.4-4.[address] [facility] Serum or plasma alkaline mariaelena sphatase measurementOrdered By: Yesika Faust on 01-12-2025 ALP [Catalytic activity/Vol] 110 U/L High 35-104 [facility] Serum or plasma calcium madi urement (mass/volume)Ordered By: Yesika Faust on 01-12-2025 Calcium [Mass/Vol] 9.0 mg/dL 7.6-11.[address] [facility] Serum or plasma urea nitroge n measurement (mass/volume)Ordered By: Yesika Faust on 01-12-2025 Urea nitrogen [Mass/Vol] 26 mg/dL High 4-19 [facility] Sodium levelOrdered By: Jed Faust on 01-12-2025 Sodium [Moles/Vol] 142 mmol/L 133-[address] [facility] Total proteinOrdered By: Randall Faust on 01-12-2025 Protein [Mass/Vol] 5.7 g/dL Low 5.9-8.[address] [facility] White blood cell (WBC) count Ordered By: Yesika Faust on 01-12-2025 WBC (Bld) [#/Vol] 6.0 10*3/uL 4.4-11.[address] [facility] Absolute lymphocyte countOrd ered By: Yesika Olekathierafaela on 12-14-2024 Lymphocytes Auto (Unsp spec) [#/Vol] 2.70 10*3/uL 0.83-4.51 [facility] Absolute neutrophil countOrd ered By: Tadenriquetasaeidmacarena Butterfieldkathierafaela on 12-14-2024 Neutrophils (Bld) [#/Vol] 4.2 10*3/uL 2.0-7.7 [facility] Anion gap in Serum or Plasma Ordered By: Yesika Butterfieldkathierafaela on 12-14-2024 Anion gap [Moles/Vol] 12 mmol/L 5-15 [facility] Automated lymphocyte count a s percentage of total leukocytesOrdered By: Yeiska Faust on 12-14-2024 Lymphocytes/100 WBC Auto (Unsp spec) 33.0 % 19-41 [facility] BUN/creatinine ratioOrdered By: ky Faust on 12-14-2024 Urea nitrogen/Creatinine [Mass ratio] 30.0 mg/mg High 10-20 [facility] Basophil percentageOrdered B y: Jedsaeidmacarena Butterfieldkathierafaela on 12-14-2024 Basophils/100 WBC (Bld) 1.0 % 0-1 [facility] Carbon dioxide, total [Moles /volume] in Central venous bloodOrdered By: Yesika Butterfieldkathierafaela on 12-14-2024 CO2 [Moles/Vol] 25.1 mmol/L 21.0-32.0 [facility] Chloride assayOrdered By: Tad enriquetadenae Faust on 12-14-2024 Chloride [Moles/Vol] 103 mmol/L 98-108 [facility] Eosinophil percentageOrdered By: Tadky Butterfieldkathierafaela on 12-14-2024 Eosinophils/100 WBC (Bld) 4.4 % 0-5 [facility] Erythrocyte distribution wid th (RBC) [Ratio]Ordered By: Yesika Butterfieldkathierafaela on 12-14-2024 Erythrocyte distribution width (RBC) [Entitic vol] 45.8 fL High 35.1-43.9 [facility] Erythrocyte distribution wid th ratioOrdered By: enriquetahartsdalemacarena Faust on 12-14-2024 Erythrocyte distribution width (RBC) [Ratio] 13.2 % 11.6-14.6 [facility] Erythrocyte distribution wid th standard deviationOrdered By: Yesika Fuast on 12-14-2024 Erythrocyte distribution width (RBC) [Ratio] 45.8 fl High 35.1-43.9 [facility] GFR/1.73 sq M.predicted giorgio g non-blacks MDRD (S/P/Bld) [Vol rate/Area]Ordered By: Yesika Faust on 12-14-2024 Estimated GFR (MDRD) Non-Af Amer 76 >60 [facility] Comment on above: mL/min/1.73m2 CKD-EP I Creatinine Equation (2020) Glomerular filtration rate ( GFR) estimation/1.73 sq m using serum, plasma, or whole bOrdered By: Yesika Faust on 12-14-2024 GFR/1.73 sq M.predicted among non-blacks MDRD (S/P/Bld) [Vol rate/Area] 76 mL/min/{1.73_m2} >60 [facility] Comment on above: mL/min/1.73m2 CKD-EP I Creatinine Equation (2020) Hematocrit Auto (Bld) [Volum e fraction]Ordered By: Yesika Faust on 12-14-2024 Hematocrit (Bld) [Volume fraction] 46.6 % 37-47 [facility] Hemoglobin measurementOrdere d By: Yesika Faust on 12-14-2024 Hemoglobin (Bld) [Mass/Vol] 15.2 g/dL High 12.0-15.0 [facility] Immature granulocytes/100 WB C Auto (Bld)Ordered By: Yesika Faust on 12-14-2024 Immature granulocytes/100 WBC (Bld) 0.500 % 0.0-0.9 [facility] Comment on above: IG% - Immature Granu locytes (promyelocytes, myelocytes and metamyelocytes) > 1% indicates that a LEFT SHIFT is Present. Lymphocytes Auto (Unsp spec) [#/Vol]Ordered By: Yesika Faust on 12-14-2024 Lymphocytes (Bld) [#/Vol] 2.70 10*3/uL 0.83-4.51 [facility] Lymphocytes/100 WBC Auto (Un sp spec)Ordered By: Yesika Faust on 12-14-2024 Lymphocytes/100 WBC (Bld) 33.0 % 19-41 [facility] MCV (mean corpuscular volume ) determinationOrdered By: Yesika Faust on 12-14-2024 MCV (RBC) [Entitic vol] 94.7 fL 81-99 [facility] Mean corpuscular hemoglobin (MCH) determinationOrdered By: Yesika Faust on 12-14-2024 MCH (RBC) [Entitic mass] 30.9 pg 27.0-32.0 [facility] Mean corpuscular hemoglobin concentration (MCHC) determinationOrdered By: Yesika Faust on 12-14-2024 MCHC (RBC) [Mass/Vol] 32.6 g/dL 32-36 [facility] Mean platelet volume determi nationOrdered By: Yesika Faust on 12-14-2024 Platelet mean volume (Bld) [Entitic vol] 10.6 fL 6.2-12.0 [facility] Monocyte percentageOrdered B y: Yesika Faust on 12-14-2024 Monocytes/100 WBC (Bld) 9.7 % 0-10 [facility] Neutrophil percentageOrdered By: Yesika Faust on 12-14-2024 Neutrophils/100 WBC (Bld) 51.4 % 47-70 [facility] Nucleated red blood cell per centageOrdered By: Yesika Faust on 12-14-2024 Nucleated RBC/100 WBC (Bld) [Ratio] 0 % 0-5 [facility] Platelet countOrdered By: Tad Faust on 12-14-2024 Platelets (Bld) [#/Vol] 268 10*3/uL 150-450 [facility] Potassium (Unsp spec) [Mass/ Vol]Ordered By: Yesika Faust on 12-14-2024 Potassium [Moles/Vol] 4.3 mmol/L 3.3-5.1 [facility] Potassium measurement (mass/ volume)Ordered By: Yesika Faust on 12-14-2024 Potassium (Unsp spec) [Mass/Vol] 4.3 mmol/L 3.3-5.1 [facility] RBC Auto (Bld) [#/Vol]Ordere d By: Yesika Faust on 12-14-2024 RBC (Bld) [#/Vol] 4.92 10*6/uL 4.2-5.4 [facility] Serum creatinine measurement (mass/volume)Ordered By: Yesika Faust on 12-14-2024 Creatinine [Mass/Vol] 0.76 mg/dL 0.70-1.20 [facility] Serum glucose measurement (m ass/volume)Ordered By: Yesika Faust on 12-14-2024 Glucose [Mass/Vol] 105 mg/dL High 70-[address] [facility] Serum or plasma calcium madi urement (mass/volume)Ordered By: Yesika Faust on 12-14-2024 Calcium [Mass/Vol] 9.7 mg/dL 7.6-11.[address] [facility] Serum or plasma urea nitroge n measurement (mass/volume)Ordered By: Yesika Faust on 12-14-2024 Urea nitrogen [Mass/Vol] 23 mg/dL High 4-19 [facility] Sodium levelOrdered By: Jed denae Christianne on 12-14-2024 Sodium [Moles/Vol] 141 mmol/L 133-[address] [facility] White blood cell (WBC) count Ordered By: Yesika Fasut on 12-14-2024 WBC (Bld) [#/Vol] 8.2 10*3/uL 4.4-11.[address] [facility] Absolute lymphocyte countOrd ered By: Yesika Faust on 11-14-2024 Lymphocytes Auto (Unsp spec) [#/Vol] 2.15 10*3/uL 0.83-4.51 [facility] Absolute neutrophil countOrd ered By: Yesika Faust on 11-14-2024 Neutrophils (Bld) [#/Vol] 4.8 10*3/uL 2.0-7.7 [facility] Automated lymphocyte count a s percentage of total leukocytesOrdered By: Yesika Faust on 11-14-2024 Lymphocytes/100 WBC Auto (Unsp spec) 25.7 % 19-41 [facility] BUN/creatinine ratioOrdered By: Yesika Faust on 11-14-2024 Urea nitrogen/Creatinine [Mass ratio] 36.8 mg/mg High 10-20 [facility] Basophil percentageOrdered B y: Yesika Faust on 11-14-2024 Basophils/100 WBC (Bld) 1.0 % 0-1 [facility] Carbon dioxide measurementOr dered By: Yesika Faust on 11-14-2024 CO2 [Moles/Vol] 27.6 mmol/L 22.0-29.0 [facility] Chloride measurementOrdered By: enriquetahartsdalemacarena Faust on 11-14-2024 Chloride [Moles/Vol] 101 mmol/L 96-108 [facility] Eosinophil percentageOrdered By: Yesika Faust on 11-14-2024 Eosinophils/100 WBC (Bld) 7.9 % High 0-5 [facility] Erythrocyte distribution wid th (RBC) [Ratio]Ordered By: Yesika Faust on 11-14-2024 Erythrocyte distribution width (RBC) [Entitic vol] 46.1 fL High 35.1-43.9 [facility] Erythrocyte distribution wid th ratioOrdered By: Jedhartsdalemacarena Faust on 11-14-2024 Erythrocyte distribution width (RBC) [Ratio] 12.9 % 11.6-14.6 [facility] Erythrocyte distribution wid th standard deviationOrdered By: enriquetahartsdalemacarena Faust on 11-14-2024 Erythrocyte distribution width (RBC) [Ratio] 46.1 fl High 35.1-43.9 [facility] GFR/1.73 sq M.predicted giorgio g non-blacks MDRD (S/P/Bld) [Vol rate/Area]Ordered By: Yesika Faust on 11-14-2024 Estimated GFR (MDRD) Non-Af Amer 86 >60 [facility] Comment on above: mL/min/1.73m2 CKD-EP I Creatinine Equation (2020) Glomerular filtration rate ( GFR) estimation/1.73 sq m using serum, plasma, or whole bOrdered By: Yesika Faust on 11-14-2024 GFR/1.73 sq M.predicted among non-blacks MDRD (S/P/Bld) [Vol rate/Area] 86 mL/min/{1.73_m2} >60 [facility] Comment on above: mL/min/1.73m2 CKD-EP I Creatinine Equation (2020) Hematocrit Auto (Bld) [Volum e fraction]Ordered By: ky Faust on 11-14-2024 Hematocrit (Bld) [Volume fraction] 46.9 % 37-47 [facility] Hemoglobin measurementOrdere d By: enriquetahartsdalemacarena Faust on 11-14-2024 Hemoglobin (Bld) [Mass/Vol] 15.0 g/dL 12.0-15.0 [facility] Immature granulocytes/100 WB C Auto (Bld)Ordered By: enriquetahartsdalemacarena Faust on 11-14-2024 Immature granulocytes/100 WBC (Bld) 0.500 % 0.0-0.9 [facility] Comment on above: IG% - Immature Granu locytes (promyelocytes, myelocytes and metamyelocytes) > 1% indicates that a LEFT SHIFT is Present. Lymphocytes Auto (Unsp spec) [#/Vol]Ordered By: [facility] Butterfieldrafaela on 11-14-2024 Lymphocytes (Bld) [#/Vol] 2.15 10*3/uL 0.83-4.51 [facility] Lymphocytes/100 WBC Auto (Un sp spec)Ordered By: ky Faust on 11-14-2024 Lymphocytes/100 WBC (Bld) 25.7 % 19-41 [facility] MCV (mean corpuscular volume ) determinationOrdered By: Yesika Faust on 11-14-2024 MCV (RBC) [Entitic vol] 96.9 fL 81-99 [facility] Mean corpuscular hemoglobin (MCH) determinationOrdered By: enriquetahartsdalemacarena Faust on 11-14-2024 MCH (RBC) [Entitic mass] 31.0 pg 27.0-32.0 [facility] Mean corpuscular hemoglobin concentration (MCHC) determinationOrdered By: enriquetahartsdalemacarena Faust on 11-14-2024 MCHC (RBC) [Mass/Vol] 32.0 g/dL 32-36 [facility] Mean platelet volume determi nationOrdered By: Yesika Faust on 11-14-2024 Platelet mean volume (Bld) [Entitic vol] 10.4 fL 6.2-12.0 [facility] Monocyte percentageOrdered B y: Yesika Faust on 11-14-2024 Monocytes/100 WBC (Bld) 7.9 % 0-10 [facility] Neutrophil percentageOrdered By: Yesika Faust on 11-14-2024 Neutrophils/100 WBC (Bld) 57.0 % 47-70 [facility] Nucleated red blood cell per centageOrdered By: Yesika Faust on 11-14-2024 Nucleated RBC/100 WBC (Bld) [Ratio] 0 % 0-5 [facility] Platelet countOrdered By: Tad Faust on 11-14-2024 Platelets (Bld) [#/Vol] 269 10*3/uL 150-450 [facility] RBC Auto (Bld) [#/Vol]Ordere d By: Yesika Faust on 11-14-2024 RBC (Bld) [#/Vol] 4.84 10*6/uL 4.2-5.4 [facility] Serum creatinine measurement (mass/volume)Ordered By: Yesika Faust on 11-14-2024 Creatinine [Mass/Vol] 0.65 mg/dL Low 0.70-1.20 [facility] Serum glucose measurement (m ass/volume)Ordered By: Yesika Faust on 11-14-2024 Glucose [Mass/Vol] 97 mg/dL 70-[address] [facility] Serum or plasma anion gap de termination (moles/volume)Ordered By: Yesika Faust on 11-14-2024 Anion gap [Moles/Vol] 12 mmol/L 5-15 [facility] Serum or plasma calcium madi urement (mass/volume)Ordered By: Yesika Faust on 11-14-2024 Calcium [Mass/Vol] 9.4 mg/dL 7.6-11.[address] [facility] Serum or plasma potassium me asurementOrdered By: Yesika Faust on 11-14-2024 Potassium [Moles/Vol] 4.3 mmol/L 3.3-5.1 [facility] Comment on above: Hemolysis present, R esults could be affected. Serum or plasma sodium measu rement (moles/volume)Ordered By: Yesika Faust on 11-14-2024 Sodium [Moles/Vol] 141 mmol/L 133-[address] [facility] Serum or plasma urea nitroge n measurement (mass/volume)Ordered By: Yesika Faust on 11-14-2024 Urea nitrogen [Mass/Vol] 24 mg/dL High 4-19 [facility] White blood cell (WBC) count Ordered By: Yesika Faust on 11-14-2024 WBC (Bld) [#/Vol] 8.4 10*3/uL 4.4-11.[address] [facility] Absolute lymphocyte countOrd ered By: Yesika Faust on 10-17-2024 Lymphocytes Auto (Unsp spec) [#/Vol] 1.81 10*3/uL 0.83-4.51 [facility] Absolute neutrophil countOrd ered By: Yesika Faust on 10-17-2024 Neutrophils (Bld) [#/Vol] 3.3 10*3/uL 2.0-7.7 [facility] Automated lymphocyte count a s percentage of total leukocytesOrdered By: Yesika Faust on 10-17-2024 Lymphocytes/100 WBC Auto (Unsp spec) 26.5 % 19-41 [facility] Basophil percentageOrdered B y: Yesika Faust on 10-17-2024 Basophils/100 WBC (Bld) 0.7 % 0-1 [facility] Bilirubin directOrdered By: Yesika Faust on 10-17-2024 Bilirubin.direct [Mass/Vol] 0.09 mg/dL 0.00-0.30 [facility] Bilirubin, totalOrdered By: Yesika Faust on 10-17-2024 Bilirubin [Mass/Vol] 0.20 mg/dL 0.20-1.00 [facility] Comment on above: For patients on eltr ombopag therapy, use of Dimension Molt TBIL is not recommended. Blood urea nitrogen (BUN)/cr eatinine ratioOrdered By: Yesika Faust on 10-17-2024 Urea nitrogen/Creatinine [Mass ratio] 49.3 mg/mg High 10-20 [facility] Carbon dioxide measurementOr dered By: Yesika Faust on 10-17-2024 CO2 [Moles/Vol] 29.0 mmol/L 21.0-32.0 [facility] Chloride measurementOrdered By: Yesika Faust on 10-17-2024 Chloride [Moles/Vol] 106 mmol/L 98-107 [facility] Eosinophil percentageOrdered By: Yesika Faust on 10-17-2024 Eosinophils/100 WBC (Bld) 14.6 % High 0-5 [facility] Erythrocyte distribution wid th (RBC) [Ratio]Ordered By: Yesika Faust on 10-17-2024 Erythrocyte distribution width (RBC) [Entitic vol] 46.3 fL High 35.1-43.9 [facility] Erythrocyte distribution wid th ratioOrdered By: enriquetahartsdalemacarena Faust on 10-17-2024 Erythrocyte distribution width (RBC) [Ratio] 13.0 % 11.6-14.6 [facility] Erythrocyte distribution wid th standard deviationOrdered By: enriquetahartsdalemacarena Faust on 10-17-2024 Erythrocyte distribution width (RBC) [Ratio] 46.3 fl High 35.1-43.9 [facility] Estimated glomerular filtrat ion rate (GFR) AmericanOrdered By: Yesika Faust on 10-17-2024 Estimated GFR (MDRD) Amer 120 mL/min >60 [facility] Comment on above: GFR Calc Glomerular filtration rate ( GFR) estimationOrdered By: Yesika Faust on 10-17-2024 Estimated GFR (MDRD) Non-Af Amer 99 mL/min >60 [facility] Comment on above: Non- GFR Calc GFR/1.73 sq M.predicted among non-blacks MDRD (S/P/Bld) [Vol rate/Area] 99 mL/min/{1.73_m2} >60 [facility] Comment on above: Non- GFR Calc Glucose measurementOrdered B y: Yesika Faust on 10-17-2024 Glucose [Mass/Vol] 86 mg/dL 74-[address] [facility] Hematocrit Auto (Bld) [Volum e fraction]Ordered By: Yesika Faust on 10-17-2024 Hematocrit (Bld) [Volume fraction] 41.4 % 37-47 [facility] Hemoglobin measurementOrdere d By: Jedsaeidmacarena Faust on 10-17-2024 Hemoglobin (Bld) [Mass/Vol] 13.5 g/dL 12.0-15.0 [facility] Immature granulocytes/100 WB C Auto (Bld)Ordered By: Yesika Faust on 10-17-2024 Immature granulocytes/100 WBC (Bld) 0.400 % 0.0-0.9 [facility] Comment on above: IG% - Immature Granu locytes (promyelocytes, myelocytes and metamyelocytes) > 1% indicates that a LEFT SHIFT is Present. Laboratory - Chemistry and C hemistry - challengeOrdered By: Yesika Faust on 10-17-2024 AST [Catalytic activity/Vol] 12 U/L Low 15-37 [facility] Lymphocytes Auto (Unsp spec) [#/Vol]Ordered By: Yesika Faust on 10-17-2024 Lymphocytes (Bld) [#/Vol] 1.81 10*3/uL 0.83-4.51 [facility] Lymphocytes/100 WBC Auto (Un sp spec)Ordered By: Yesika Faust on 10-17-2024 Lymphocytes/100 WBC (Bld) 26.5 % 19-41 [facility] MCV (mean corpuscular volume ) determinationOrdered By: Yesika Faust on 10-17-2024 MCV (RBC) [Entitic vol] 98.6 fL 81-99 [facility] Mean corpuscular hemoglobin (MCH) determinationOrdered By: Yesika Faust on 10-17-2024 MCH (RBC) [Entitic mass] 32.1 pg High 27.0-32.0 [facility] Mean corpuscular hemoglobin concentration (MCHC) determinationOrdered By: Yesika Faust on 10-17-2024 MCHC (RBC) [Mass/Vol] 32.6 g/dL 32-36 [facility] Mean platelet volume determi nationOrdered By: Yesika Faust on 10-17-2024 Platelet mean volume (Bld) [Entitic vol] 10.6 fL 6.2-12.0 [facility] Monocyte percentageOrdered B y: Yesika Faust on 10-17-2024 Monocytes/100 WBC (Bld) 9.5 % 0-10 [facility] Neutrophil percentageOrdered By: Yesika Faust on 10-17-2024 Neutrophils/100 WBC (Bld) 48.3 % 47-70 [facility] Nucleated red blood cell per centageOrdered By: Yesika Faust on 10-17-2024 Nucleated RBC/100 WBC (Bld) [Ratio] 0 % 0-5 [facility] Platelet countOrdered By: Tad Faust on 10-17-2024 Platelets (Bld) [#/Vol] 232 10*3/uL 150-450 [facility] Potassium measurementOrdered By: Yesika Faust on 10-17-2024 Potassium [Moles/Vol] 4.0 mmol/L 3.5-5.1 [facility] RBC Auto (Bld) [#/Vol]Ordere d By: Yesika Faust on 10-17-2024 RBC (Bld) [#/Vol] 4.20 10*6/uL 4.2-5.4 [facility] Serum anion gap measurementO rdered By: Yesika Faust on 10-17-2024 Anion gap [Moles/Vol] 5 mmol/L 5-15 [facility] Serum globulin measurementOr dered By: Yesika Faust on 10-17-2024 Globulin (S) [Mass/Vol] 3.2 g/dL 2.2-4.2 [facility] Serum or plasma alanine vela otransferase (ALT) measurementOrdered By: Yesika Faust on 10-17-2024 ALT [Catalytic activity/Vol] 19 U/L 13-56 [facility] Serum or plasma albumin madi urement (mass/volume)Ordered By: Yesika Faust on 10-17-2024 Albumin [Mass/Vol] 3.1 g/dL Low 3.2-5.[address] [facility] Serum or plasma alkaline mariaelena sphatase measurementOrdered By: Tadky Faust on 10-17-2024 ALP [Catalytic activity/Vol] 108 U/L 45-117 [facility] Serum or plasma calcium madi urement (mass/volume)Ordered By: Yesika Faust on 10-17-2024 Calcium [Mass/Vol] 9.1 mg/dL 8.5-10.[address] [facility] Serum or plasma creatinine m easurement (mass/volume)Ordered By: Yesika Faust on 10-17-2024 Creatinine [Mass/Vol] 0.61 mg/dL 0.55-1.02 [facility] Comment on above: The validity of the calculated GFR & GFRAA in patients over 70 years has not been determined. Clinical correlation is essential. Serum or plasma urea nitroge n measurement (mass/volume)Ordered By: Yesika Faust on 10-17-2024 Urea nitrogen [Mass/Vol] 30 mg/dL High 7-18 [facility] Sodium levelOrdered By: Jed denae Christianne on 10-17-2024 Sodium [Moles/Vol] 140 mmol/L 136-[address] [facility] Total proteinOrdered By: Randall montsemacarena Faust on 10-17-2024 Protein [Mass/Vol] 6.3 g/dL Low 6.4-8.[address] [facility] White blood cell (WBC) count Ordered By: Yesika Faust on 10-17-2024 WBC (Bld) [#/Vol] 6.8 10*3/uL 4.4-11.[address] [facility] Bilirubin Test strip Ql (U)O rdered By: Yesika Faust on 10-14-2024 Bilirubin Ql (U) Negative Negative [facility] Epithelial cells.squamous LM Ql (Urine sed)Ordered By: Yesika Faust on 10-14-2024 Epithelial cells.squamous LM.HPF (Urine sed) [#/Area] 0 /[HPF] 5-10 [facility] Glucose Ql (U)Ordered By: Tad Faust on 10-14-2024 Urine Glucose (UA) Normal mg/dl Normal [facility] Ketones Test strip Ql (U)Ord ered By: Yesika Faust on 10-14-2024 Ketones Ql (U) Negative Negative [facility] Microscopic analysis of urin e for red blood cells (RBC)Ordered By: Yesika Faust on 10-14-2024 Microscopic analysis of urine for red blood cells (RBC) 0 SEEN /hpf 0-5 [facility] Urine RBC 0 SEEN /hpf 0-5 [facility] Mucus LM Ql (Urine sed)Order ed By: Yesika Faust on 10-14-2024 Mucus Ql (Urine sed) 0 SEEN /hpf [facility] Nitrite Test strip Ql (U)Ord ered By: Yesika Faust on 10-14-2024 Nitrite Ql (U) Positive High Negative [facility] Protein Test strip Ql (U)Ord ered By: Yesika Faust on 10-14-2024 Protein Ql (U) 15 mg/dl High Negative [facility] Squamous epithelial cells de tection in urine sediment by light microscopyOrdered By: Yesika Faust on 10-14-2024 Epithelial cells.squamous LM Ql (Urine sed) 0 SEEN /hpf 5-10 [facility] Triple phosphate crystals LM Ql (Urine sed)Ordered By: Yeskia Faust on 10-14-2024 Urine Triple Phosphate Crystals 1+ /hpf [facility] Triple phosphate crystals de tection in urine sediment by light microscopyOrdered By: Yesika Faust on 10-14-2024 Triple phosphate crystals LM Ql (Urine sed) 1+ /hpf [facility] Urine blood detectionOrdered By: Yesika Faust on 10-14-2024 Urine Occult Blood Negative Negative [facility] Urine clarityOrdered By: Randall Faust on 10-14-2024 Clarity (U) Sl. Cloudy Clear [facility] Urine color determinationOrd ered By: Yesika Faust on 10-14-2024 Color (U) Yellow Yellow [facility] Urine cultureOrdered By: Randall Faust on 10-14-2024 Bacteria identified Cx Nom (U) Proteus mirabilis Abnormal [facility] Urine glucose detectionOrder ed By: Yesika Faust on 10-14-2024 Glucose Ql (U) Normal mg/dl Normal [facility] Urine leukocyte esterase det ection by dipstickOrdered By: Yesika Faust on 10-14-2024 Leukocyte esterase Test strip Ql (U) 25 /ul High Negative [facility] Urine pHOrdered By: Fernando Faust on 10-14-2024 pH (U) 9.0 [pH] 5.0 - 8.0 [facility] Urine sediment bacteria coun t by microscopy (number/high power field)Ordered By: Yesika Faust on 10-14-2024 Bacteria LM.HPF (Urine sed) [#/Area] 1 /[HPF] None Seen [facility] Urine specific gravity measu rementOrdered By: Yesika Faust on 10-14-2024 Specific gravity (U) [Rel density] 1.015 1.002-1.03 0 [facility] Urine urobilinogen measureme ntOrdered By: Yesika Faust on 10-14-2024 Urobilinogen Ql (U) Normal mg/dl Normal [facility] Urobilinogen Ql (U)Ordered B y: Yesika Faust on 10-14-2024 Urine Urobilinogen Normal mg/dl Normal [facility] White blood cell countOrdere d By: Yesika Faust on 10-14-2024 Urine WBC 0 SEEN /hpf 0-5 [facility] White blood cell count 0 SEEN /hpf 0-5 [facility] Absolute neutrophil countOrd ered By: Yesika Faust on 09-16-2024 Neutrophils (Bld) [#/Vol] 4.4 10*3/uL 2.0-7.7 [facility] Basophil percentageOrdered B y: Yesika Faust on 09-16-2024 Basophils/100 WBC (Bld) 0.7 % 0-1 [facility] Blood urea nitrogen (BUN)/cr eatinine ratioOrdered By: Yesika Faust on 09-16-2024 Urea nitrogen/Creatinine [Mass ratio] 40.5 mg/mg High 10-20 [facility] Carbon dioxide measurementOr dered By: Yesika Faust on 09-16-2024 CO2 [Moles/Vol] 28.0 mmol/L 21.0-32.0 [facility] Chloride measurementOrdered By: Yesika Faust on 09-16-2024 Chloride [Moles/Vol] 106 mmol/L 98-107 [facility] Eosinophil percentageOrdered By: Yesika Faust on 09-16-2024 Eosinophils/100 WBC (Bld) 3.0 % 0-5 [facility] Erythrocyte distribution wid th (RBC) [Ratio]Ordered By: Yesika Faust on 09-16-2024 Erythrocyte distribution width (RBC) [Entitic vol] 48.3 fL High 35.1-43.9 [facility] Erythrocyte distribution wid th ratioOrdered By: Yesika Faust on 09-16-2024 Erythrocyte distribution width (RBC) [Ratio] 13.2 % 11.6-14.6 [facility] Estimated glomerular filtrat ion rate (GFR) AmericanOrdered By: Yesika Faust on 09-16-2024 Estimated GFR (MDRD) Amer 162 mL/min >60 [facility] Comment on above: GFR Calc Glomerular filtration rate ( GFR) estimationOrdered By: Yesika Faust on 09-16-2024 Estimated GFR (MDRD) Non-Af Amer 134 mL/min >60 [facility] Comment on above: Non- GFR Calc Glucose measurementOrdered B y: Yesika Faust on 09-16-2024 Glucose [Mass/Vol] 89 mg/dL 74-[address] [facility] Hematocrit Auto (Bld) [Volum e fraction]Ordered By: Yesika Faust on 09-16-2024 Hematocrit (Bld) [Volume fraction] 38.9 % 37-47 [facility] Hemoglobin measurementOrdere d By: Yesika Faust on 09-16-2024 Hemoglobin (Bld) [Mass/Vol] 12.4 g/dL 12.0-15.0 [facility] Immature granulocytes/100 WB C Auto (Bld)Ordered By: Yesika Faust on 09-16-2024 Immature granulocytes/100 WBC (Bld) 0.300 % 0.0-0.9 [facility] Comment on above: IG% - Immature Granu locytes (promyelocytes, myelocytes and metamyelocytes) > 1% indicates that a LEFT SHIFT is Present. Lymphocytes Auto (Unsp spec) [#/Vol]Ordered By: Yesika Faust on 09-16-2024 Lymphocytes (Bld) [#/Vol] 1.59 10*3/uL 0.83-4.51 [facility] Lymphocytes/100 WBC Auto (Un sp spec)Ordered By: Yesika Faust on 09-16-2024 Lymphocytes/100 WBC (Bld) 23.1 % 19-41 [facility] MCV (mean corpuscular volume ) determinationOrdered By: Yesika Faust on 09-16-2024 MCV (RBC) [Entitic vol] 98.7 fL 81-99 [facility] Mean corpuscular hemoglobin (MCH) determinationOrdered By: enriquetahartsdalemacarena Faust on 09-16-2024 MCH (RBC) [Entitic mass] 31.5 pg 27.0-32.0 [facility] Mean corpuscular hemoglobin concentration (MCHC) determinationOrdered By: enriquetahartsdalemacarena Faust on 09-16-2024 MCHC (RBC) [Mass/Vol] 31.9 g/dL Low 32-36 [facility] Mean platelet volume determi nationOrdered By: ky Faust on 09-16-2024 Platelet mean volume (Bld) [Entitic vol] 10.6 fL 6.2-12.0 [facility] Monocyte percentageOrdered B y: Yesika Faust on 09-16-2024 Monocytes/100 WBC (Bld) 9.6 % 0-10 [facility] Neutrophil percentageOrdered By: enriquetahartsdalemacarena Faust on 09-16-2024 Neutrophils/100 WBC (Bld) 63.3 % 47-70 [facility] Nucleated red blood cell per centageOrdered By: Yesika Faust on 09-16-2024 Nucleated RBC/100 WBC (Bld) [Ratio] 0 % 0-5 [facility] Platelet countOrdered By: Tad Faust on 09-16-2024 Platelets (Bld) [#/Vol] 241 10*3/uL 150-450 [facility] Potassium measurementOrdered By: Yesika Faust on 09-16-2024 Potassium [Moles/Vol] 3.8 mmol/L 3.5-5.1 [facility] RBC Auto (Bld) [#/Vol]Ordere d By: Yesika Faust on 09-16-2024 RBC (Bld) [#/Vol] 3.94 10*6/uL Low 4.2-5.4 [facility] Serum anion gap measurementO rdered By: Yesika Faust on 09-16-2024 Anion gap [Moles/Vol] 5 mmol/L 5-15 [facility] Serum or plasma calcium madi urement (mass/volume)Ordered By: Yesika Faust on 09-16-2024 Calcium [Mass/Vol] 8.8 mg/dL 8.5-10.[address] [facility] Serum or plasma creatinine m easurement (mass/volume)Ordered By: Yesika Faust on 09-16-2024 Creatinine [Mass/Vol] 0.47 mg/dL Low 0.55-1.02 [facility] Comment on above: The validity of the calculated GFR & GFRAA in patients over 70 years has not been determined. Clinical correlation is essential. Serum or plasma urea nitroge n measurement (mass/volume)Ordered By: Yesika Faust on 09-16-2024 Urea nitrogen [Mass/Vol] 19 mg/dL High 7-18 [facility] Sodium levelOrdered By: Jed Faust on 09-16-2024 Sodium [Moles/Vol] 139 mmol/L 136-[address] [facility] White blood cell (WBC) count Ordered By: Yesika Faust on 09-16-2024 WBC (Bld) [#/Vol] 6.9 10*3/uL 4.4-11.[address] [facility] Absolute neutrophil countOrd ered By: Yesika Faust on 08-16-2024 Neutrophils (Bld) [#/Vol] 3.4 10*3/uL 2.0-7.7 [facility] Basophil percentageOrdered B y: Yesika Faust on 08-16-2024 Basophils/100 WBC (Bld) 0.7 % 0-1 [facility] Blood urea nitrogen (BUN)/cr eatinine ratioOrdered By: Yesika Faust on 08-16-2024 Urea nitrogen/Creatinine [Mass ratio] 35.8 mg/mg High 10-20 [facility] Carbon dioxide measurementOr dered By: Yesika Faust on 08-16-2024 CO2 [Moles/Vol] 28.0 mmol/L 21.0-32.0 [facility] Chloride measurementOrdered By: enriquetahartsdalemacarena Faust on 08-16-2024 Chloride [Moles/Vol] 110 mmol/L High 98-107 [facility] Eosinophil percentageOrdered By: Yesika Faust on 08-16-2024 Eosinophils/100 WBC (Bld) 3.1 % 0-5 [facility] Erythrocyte distribution wid th (RBC) [Ratio]Ordered By: Yesika Faust on 08-16-2024 Erythrocyte distribution width (RBC) [Entitic vol] 50.8 fL High 35.1-43.9 [facility] Erythrocyte distribution wid th ratioOrdered By: Yesika Faust on 08-16-2024 Erythrocyte distribution width (RBC) [Ratio] 14.0 % 11.6-14.6 [facility] Estimated glomerular filtrat ion rate (GFR) AmericanOrdered By: Yesika Faust on 08-16-2024 Estimated GFR (MDRD) Amer 141 mL/min >60 [facility] Comment on above: GFR Calc Glomerular filtration rate ( GFR) estimationOrdered By: Yesika Faust on 08-16-2024 Estimated GFR (MDRD) Non-Af Amer 116 mL/min >60 [facility] Comment on above: Non- GFR Calc Glucose measurementOrdered B y: Yesika Faust on 08-16-2024 Glucose [Mass/Vol] 85 mg/dL 74-[address] [facility] Hematocrit Auto (Bld) [Volum e fraction]Ordered By: Yesika Faust on 08-16-2024 Hematocrit (Bld) [Volume fraction] 41.2 % 37-47 [facility] Hemoglobin measurementOrdere d By: Yesika Faust on 08-16-2024 Hemoglobin (Bld) [Mass/Vol] 12.9 g/dL 12.0-15.0 [facility] Immature granulocytes/100 WB C Auto (Bld)Ordered By: ky Faust on 08-16-2024 Immature granulocytes/100 WBC (Bld) 0.300 % 0.0-0.9 [facility] Comment on above: IG% - Immature Granu locytes (promyelocytes, myelocytes and metamyelocytes) > 1% indicates that a LEFT SHIFT is Present. Lymphocytes Auto (Unsp spec) [#/Vol]Ordered By: Yesika Faust on 08-16-2024 Lymphocytes (Bld) [#/Vol] 1.61 10*3/uL 0.83-4.51 [facility] Lymphocytes/100 WBC Auto (Un sp spec)Ordered By: Yesika Faust on 08-16-2024 Lymphocytes/100 WBC (Bld) 27.4 % 19-41 [facility] MCV (mean corpuscular volume ) determinationOrdered By: Yesika Faust on 08-16-2024 MCV (RBC) [Entitic vol] 99.0 fL 81-99 [facility] Mean corpuscular hemoglobin (MCH) determinationOrdered By: Yesika Faust on 08-16-2024 MCH (RBC) [Entitic mass] 31.0 pg 27.0-32.0 [facility] Mean corpuscular hemoglobin concentration (MCHC) determinationOrdered By: Yesika Faust on 08-16-2024 MCHC (RBC) [Mass/Vol] 31.3 g/dL Low 32-36 [facility] Mean platelet volume determi nationOrdered By: Yesika Faust on 08-16-2024 Platelet mean volume (Bld) [Entitic vol] 10.8 fL 6.2-12.0 [facility] Monocyte percentageOrdered B y: Yesika Faust on 08-16-2024 Monocytes/100 WBC (Bld) 10.5 % High 0-10 [facility] Neutrophil percentageOrdered By: Tadenriquetadenae Scoutandreea on 08-16-2024 Neutrophils/100 WBC (Bld) 58.0 % 47-70 [facility] Nucleated red blood cell per centageOrdered By: Tadenriquetasaeidmacarena Butterfieldkathierafaela on 08-16-2024 Nucleated RBC/100 WBC (Bld) [Ratio] 0 % 0-5 [facility] Platelet countOrdered By: Tad ky Scoutandreea on 08-16-2024 Platelets (Bld) [#/Vol] 242 10*3/uL 150-450 [facility] Potassium measurementOrdered By: Yesika Faust on 08-16-2024 Potassium [Moles/Vol] 3.9 mmol/L 3.5-5.1 [facility] RBC Auto (Bld) [#/Vol]Ordere d By: Jedsaeidmacarena Butterfieldandreea on 08-16-2024 RBC (Bld) [#/Vol] 4.16 10*6/uL Low 4.2-5.4 [facility] Serum anion gap measurementO rdered By: Yesika Butterfieldkathierafaela on 08-16-2024 Anion gap [Moles/Vol] 4 mmol/L Low 5-15 [facility] Serum or plasma calcium madi urement (mass/volume)Ordered By: Yesika Faust on 08-16-2024 Calcium [Mass/Vol] 8.9 mg/dL 8.5-10.[address] [facility] Serum or plasma creatinine m easurement (mass/volume)Ordered By: Yesika Faust on 08-16-2024 Creatinine [Mass/Vol] 0.53 mg/dL Low 0.55-1.02 [facility] Comment on above: The validity of the calculated GFR & GFRAA in patients over 70 years has not been determined. Clinical correlation is essential. Serum or plasma urea nitroge n measurement (mass/volume)Ordered By: Yesika Faust on 08-16-2024 Urea nitrogen [Mass/Vol] 19 mg/dL High 7-18 [facility] Sodium levelOrdered By: Jed Faust on 08-16-2024 Sodium [Moles/Vol] 142 mmol/L 136-[address] [facility] White blood cell (WBC) count Ordered By: Yesika Faust on 08-16-2024 WBC (Bld) [#/Vol] 5.9 10*3/uL 4.4-11.[address] [facility] Absolute lymphocyte countOrd ered By: [facility] Butterfieldrafaela on 11-17-2023 Lymphocytes Auto (Unsp spec) [#/Vol] 1.64 10*3/uL 0.83-4.51 [facility] Automated lymphocyte count a s percentage of total leukocytesOrdered By: Yesika Faust on 11-17-2023 Lymphocytes/100 WBC Auto (Unsp spec) 26.6 % 19-41 [facility] Basophil percentageOrdered B y: Yesika Faust on 11-17-2023 Basophils/100 WBC (Bld) 0.6 % 0-1 [facility] Chloride [Moles/Vol] 109 mmol/L 98-107 [facility] Eosinophils/100 WBC (Bld) 1.8 % 0-5 [facility] Glucose [Mass/Vol] 91 mg/dL 74-[address] [facility] Hemoglobin (Bld) [Mass/Vol] 12.9 g/dL 12.0-15.0 [facility] Monocytes/100 WBC (Bld) 9.4 % 0-10 [facility] Neutrophils (Bld) [#/Vol] 3.8 10*3/uL 2.0-7.7 [facility] Neutrophils/100 WBC (Bld) 61.1 % 47-70 [facility] Potassium [Moles/Vol] 3.8 mmol/L 3.5-5.1 [facility] Sodium [Moles/Vol] 140 mmol/L 136-[address] [facility] WBC (Bld) [#/Vol] 6.2 10*3/uL 4.4-11.[address] [facility] Determination of erythrocyte mean corpuscular volume (MCV)Ordered By: Yesika Faust on 11-17-2023 MCV (RBC) [Entitic vol] 91.8 fL 81-99 [facility] Erythrocyte distribution wid th ratioOrdered By: [facility] Faust on 11-17-2023 Erythrocyte distribution width (RBC) [Ratio] 14.3 % 11.6-14.6 [facility] Erythrocyte distribution wid th standard deviationOrdered By: [facility] Faust on 11-17-2023 Erythrocyte distribution width (RBC) [Entitic vol] 48.0 fL 35.1-43.9 [facility] Hematocrit Auto (Bld) [Volum e fraction]Ordered By: [facility] Butterfieldrafaela on 11-17-2023 Hematocrit (Bld) [Volume fraction] 39.3 % 37-47 [facility] Immature granulocytes/100 WB C Auto (Bld)Ordered By: [facility] Scoutrafaela on 11-17-2023 Immature granulocytes/100 WBC (Bld) 0.500 % 0.0-0.9 [facility] Comment on above: IG% - Immature Granu locytes (promyelocytes, myelocytes and metamyelocytes) > 1% indicates that a LEFT SHIFT is Present. Laboratory - Chemistry and C hemistry - challengeOrdered By: Yesika Faust on 11-17-2023 CO2 [Moles/Vol] 28.0 mmol/L 21.0-32.0 [facility] Urea nitrogen/Creatinine [Mass ratio] 18.6 mg/mg 10-20 [facility] Laboratory - Hematology and Cell countsOrdered By: enriquetahartsdalemacarena Faust on 11-17-2023 MCH (RBC) [Entitic mass] 30.1 pg 27.0-32.0 [facility] MCHC (RBC) [Mass/Vol] 32.8 g/dL 32-36 [facility] Nucleated RBC/100 WBC (Bld) [Ratio] 0 % 0-5 [facility] Platelet mean volume (Bld) [Entitic vol] 9.9 fL 6.2-12.0 [facility] Platelets (Bld) [#/Vol] 230 10*3/uL 150-450 [facility] No Panel InformationOrdered By: Yesika Faust on 11-17-2023 Estimated GFR (MDRD) Amer 94 mL/min >60 [facility] Comment on above: GFR Calc Estimated GFR (MDRD) Non-Af Amer 78 mL/min >60 [facility] Comment on above: Non- GFR Calc RBC Auto (Bld) [#/Vol]Ordere d By: Yesika Faust on 11-17-2023 RBC (Bld) [#/Vol] 4.28 10*6/uL 4.2-5.4 [facility] Serum or plasma calcium madi urement (mass/volume)Ordered By: Yesika Faust on 11-17-2023 Calcium [Mass/Vol] 9.2 mg/dL 8.5-10.[address] [facility] Serum or plasma creatinine m easurement (mass/volume)Ordered By: Yesika Faust on 11-17-2023 Creatinine [Mass/Vol] 0.75 mg/dL 0.55-1.02 [facility] Comment on above: The validity of the calculated GFR & GFRAA in patients over 70 years has not been determined. Clinical correlation is essential. Serum or plasma urea nitroge n measurement (mass/volume)Ordered By: Yesika Faust on 11-17-2023 Urea nitrogen [Mass/Vol] 14 mg/dL 7-18 [facility] Thin prep Papanicolaou smear with manual screeningOrdered By: ky Faust on 11-17-2023 Thin prep Papanicolaou smear with manual screening 3 5-15 [facility] Absolute lymphocyte countOrd ered By: Yesika Faust on 08-18-2023 Lymphocytes Auto (Unsp spec) [#/Vol] 1.67 10*3/uL 0.83-4.51 [facility] Basophil percentageOrdered B y: Yesika Faust on 08-18-2023 Basophils/100 WBC (Bld) 0.7 % 0-1 [facility] Chloride [Moles/Vol] 109 mmol/L 98-107 [facility] Eosinophils/100 WBC (Bld) 2.8 % 0-5 [facility] Glucose [Mass/Vol] 89 mg/dL 74-[address] [facility] Neutrophils (Bld) [#/Vol] 3.1 10*3/uL 2.0-7.7 [facility] Neutrophils/100 WBC (Bld) 56.1 % 47-70 [facility] Potassium [Moles/Vol] 4.0 mmol/L 3.5-5.1 [facility] Sodium [Moles/Vol] 141 mmol/L 136-[address] [facility] WBC (Bld) [#/Vol] 5.4 10*3/uL 4.4-11.[address] [facility] Blood erythrocytes count (nu mber/volume)Ordered By: Yesika Faust on 08-18-2023 RBC (Bld) [#/Vol] 4.55 10*6/uL 4.2-5.4 [facility] Blood hemoglobin measurement (mass/volume)Ordered By: Yesika Faust on 08-18-2023 Hemoglobin (Bld) [Mass/Vol] 12.9 g/dL 12.0-15.0 [facility] Blood lymphocytes/100 leukoc ytesOrdered By: Yesika Faust on 08-18-2023 Lymphocytes/100 WBC (Bld) 30.8 % 19-41 [facility] Blood monocytes/100 leukocyt esOrdered By: Yesika Faust on 08-18-2023 Monocytes/100 WBC (Bld) 9.4 % 0-10 [facility] Blood platelet mean volumeOr dered By: Yesika Faust on 08-18-2023 Platelet mean volume (Bld) [Entitic vol] 10.4 fL 6.2-12.0 [facility] Determination of erythrocyte mean corpuscular volume (MCV)Ordered By: Yesika Faust on 08-18-2023 MCV (RBC) [Entitic vol] 89.5 fL 81-99 [facility] Hematocrit Auto (Bld) [Volum e fraction]Ordered By: Yesika Faust on 08-18-2023 Hematocrit (Bld) [Volume fraction] 40.7 % 37-47 [facility] Laboratory - Chemistry and C hemistry - challengeOrdered By: Yesika Faust on 08-18-2023 CO2 [Moles/Vol] 29.0 mmol/L 21.0-32.0 [facility] Urea nitrogen/Creatinine [Mass ratio] 16.6 mg/mg 10-20 [facility] Laboratory - Hematology and Cell countsOrdered By: Yesika Faust on 08-18-2023 Erythrocyte distribution width (RBC) [Entitic vol] 45.5 fL 35.1-43.9 [facility] Erythrocyte distribution width (RBC) [Ratio] 13.9 % 11.6-14.6 [facility] Immature granulocytes/100 WBC (Bld) 0.200 % 0.0-0.9 [facility] Comment on above: IG% - Immature Granu locytes (promyelocytes, myelocytes and metamyelocytes) > 1% indicates that a LEFT SHIFT is Present. MCH (RBC) [Entitic mass] 28.4 pg 27.0-32.0 [facility] Nucleated RBC/100 WBC (Bld) [Ratio] 0 % 0-5 [facility] MCHC Auto (RBC) [Mass/Vol]Or dered By: Yesika Faust on 08-18-2023 MCHC (RBC) [Mass/Vol] 31.7 g/dL 32-36 [facility] No Panel InformationOrdered By: Yesika Faust on 08-18-2023 Estimated GFR (MDRD) Amer 109 mL/min >60 [facility] Comment on above: GFR Calc Estimated GFR (MDRD) Non-Af Amer 90 mL/min >60 [facility] Comment on above: Non- GFR Calc Platelets bldOrdered By: Randall Faust on 08-18-2023 Platelets (Bld) [#/Vol] 221 10*3/uL 150-450 [facility] Serum or plasma calcium madi urement (mass/volume)Ordered By: Yesika Faust on 08-18-2023 Calcium [Mass/Vol] 8.8 mg/dL 8.5-10.[address] [facility] Serum or plasma creatinine m easurement (mass/volume)Ordered By: Yesika Faust on 08-18-2023 Creatinine [Mass/Vol] 0.66 mg/dL 0.55-1.02 [facility] Comment on above: The validity of the calculated GFR & GFRAA in patients over 70 years has not been determined. Clinical correlation is essential. Serum or plasma urea nitroge n measurement (mass/volume)Ordered By: Yesika Faust on 08-18-2023 Urea nitrogen [Mass/Vol] 11 mg/dL 7-18 [facility] Thin prep Papanicolaou smear with manual screeningOrdered By: Yesika Faust on 08-18-2023 Thin prep Papanicolaou smear with manual screening 3 5-15 [facility] Absolute lymphocyte countOrd ered By: enriquetahartsdalemacarena Faust on 05-19-2023 Lymphocytes Auto (Unsp spec) [#/Vol] 1.86 10*3/uL 0.83-4.51 [facility] Basophil percentageOrdered B y: Yesika Faust on 05-19-2023 Basophils/100 WBC (Bld) 0.8 % 0-1 [facility] Chloride [Moles/Vol] 107 mmol/L 98-107 [facility] Eosinophils/100 WBC (Bld) 1.5 % 0-5 [facility] Glucose [Mass/Vol] 125 mg/dL 74-[address] [facility] Comment on above: Fasting Glucose resu lt from 100 to 125 mg/dL suggests IMPAIRED HOMEOSTASIS per A.D.A. criteria. Neutrophils (Bld) [#/Vol] 3.4 10*3/uL 2.0-7.7 [facility] Neutrophils/100 WBC (Bld) 55.5 % 47-70 [facility] Potassium [Moles/Vol] 3.6 mmol/L 3.5-5.1 [facility] Sodium [Moles/Vol] 139 mmol/L 136-[address] [facility] WBC (Bld) [#/Vol] 6.2 10*3/uL 4.4-11.[address] [facility] Blood erythrocytes count (nu mber/volume)Ordered By: Yesika Faust on 05-19-2023 RBC (Bld) [#/Vol] 4.24 10*6/uL 4.2-5.4 [facility] Blood hemoglobin measurement (mass/volume)Ordered By: Yesika Faust on 05-19-2023 Hemoglobin (Bld) [Mass/Vol] 11.7 g/dL 12.0-15.0 [facility] Blood lymphocytes/100 leukoc ytesOrdered By: [facility] Faust on 05-19-2023 Lymphocytes/100 WBC (Bld) 30.1 % 19-41 [facility] Blood monocytes/100 leukocyt esOrdered By: [facility] Scoutrafaela on 05-19-2023 Monocytes/100 WBC (Bld) 11.8 % 0-10 [facility] Blood platelet mean volumeOr dered By: [facility] Scoutrafaela on 05-19-2023 Platelet mean volume (Bld) [Entitic vol] 10.5 fL 6.2-12.0 [facility] Determination of erythrocyte mean corpuscular volume (MCV)Ordered By: [facility] Scoutrafaela on 05-19-2023 MCV (RBC) [Entitic vol] 90.3 fL 81-99 [facility] Hematocrit Auto (Bld) [Volum e fraction]Ordered By: [facility] Butterfieldrafaela on 05-19-2023 Hematocrit (Bld) [Volume fraction] 38.3 % 37-47 [facility] Laboratory - Chemistry and C hemistry - challengeOrdered By: [facility] Butterfieldrafaela on 05-19-2023 CO2 [Moles/Vol] 29.0 mmol/L 21.0-32.0 [facility] Urea nitrogen/Creatinine [Mass ratio] 21.6 mg/mg 10-20 [facility] Laboratory - Hematology and Cell countsOrdered By: [facility] Scoutrafaela on 05-19-2023 Erythrocyte distribution width (RBC) [Entitic vol] 50.2 fL 35.1-43.9 [facility] Erythrocyte distribution width (RBC) [Ratio] 15.2 % 11.6-14.6 [facility] Immature granulocytes/100 WBC (Bld) 0.300 % 0.0-0.9 [facility] Comment on above: IG% - Immature Granu locytes (promyelocytes, myelocytes and metamyelocytes) > 1% indicates that a LEFT SHIFT is Present. MCH (RBC) [Entitic mass] 27.6 pg 27.0-32.0 [facility] Nucleated RBC/100 WBC (Bld) [Ratio] 0 % 0-5 [facility] MCHC Auto (RBC) [Mass/Vol]Or dered By: Yesika Faust on 05-19-2023 MCHC (RBC) [Mass/Vol] 30.5 g/dL 32-36 [facility] No Panel InformationOrdered By: Yesika Faust on 05-19-2023 Estimated GFR (MDRD) Amer 74 mL/min >60 [facility] Comment on above: GFR Calc Estimated GFR (MDRD) Non-Af Amer 61 mL/min >60 [facility] Comment on above: Non- GFR Calc Platelets bldOrdered By: Randall Faust on 05-19-2023 Platelets (Bld) [#/Vol] 234 10*3/uL 150-450 [facility] Serum or plasma calcium madi urement (mass/volume)Ordered By: Yesika Faust on 05-19-2023 Calcium [Mass/Vol] 8.7 mg/dL 8.5-10.[address] [facility] Serum or plasma creatinine m easurement (mass/volume)Ordered By: Yesika Faust on 05-19-2023 Creatinine [Mass/Vol] 0.92 mg/dL 0.55-1.02 [facility] Comment on above: The validity of the calculated GFR & GFRAA in patients over 70 years has not been determined. Clinical correlation is essential. Serum or plasma urea nitroge n measurement (mass/volume)Ordered By: Yesika Faust on 05-19-2023 Urea nitrogen [Mass/Vol] 20 mg/dL 7-18 [facility] Thin prep Papanicolaou smear with manual screeningOrdered By: Yesika Faust on 05-19-2023 Thin prep Papanicolaou smear with manual screening 3 5-15 [facility] Absolute lymphocyte countOrd ered By: Yesika Faust on 02-17-2023 Lymphocytes Auto (Unsp spec) [#/Vol] 1.67 10*3/uL 0.83-4.51 [facility] Basophil percentageOrdered B y: Yesika Faust on 02-17-2023 Basophils/100 WBC (Bld) 0.8 % 0-1 [facility] Chloride [Moles/Vol] 109 mmol/L 98-107 [facility] Eosinophils/100 WBC (Bld) 2.8 % 0-5 [facility] Glucose [Mass/Vol] 94 mg/dL 74-[address] [facility] Neutrophils (Bld) [#/Vol] 3.9 10*3/uL 2.0-7.7 [facility] Neutrophils/100 WBC (Bld) 60.0 % 47-70 [facility] Potassium [Moles/Vol] 3.7 mmol/L 3.5-5.1 [facility] Sodium [Moles/Vol] 141 mmol/L 136-[address] [facility] WBC (Bld) [#/Vol] 6.5 10*3/uL 4.4-11.[address] [facility] Blood erythrocytes count (nu mber/volume)Ordered By: Yesika Faust on 02-17-2023 RBC (Bld) [#/Vol] 4.33 10*6/uL 4.2-5.4 [facility] Blood hemoglobin measurement (mass/volume)Ordered By: Yesika Faust on 02-17-2023 Hemoglobin (Bld) [Mass/Vol] 11.4 g/dL 12.0-15.0 [facility] Blood lymphocytes/100 leukoc ytesOrdered By: Yesika Faust on 02-17-2023 Lymphocytes/100 WBC (Bld) 25.9 % 19-41 [facility] Blood monocytes/100 leukocyt esOrdered By: Yesika Faust on 02-17-2023 Monocytes/100 WBC (Bld) 10.2 % 0-10 [facility] Blood platelet mean volumeOr dered By: Yesika Faust on 02-17-2023 Platelet mean volume (Bld) [Entitic vol] 10.6 fL 6.2-12.0 [facility] Determination of erythrocyte mean corpuscular volume (MCV)Ordered By: Yesika Faust on 02-17-2023 MCV (RBC) [Entitic vol] 86.4 fL 81-99 [facility] Hematocrit Auto (Bld) [Volum e fraction]Ordered By: Yesika Faust on 02-17-2023 Hematocrit (Bld) [Volume fraction] 37.4 % 37-47 [facility] Laboratory - Chemistry and C hemistry - challengeOrdered By: Yesika Faust on 02-17-2023 CO2 [Moles/Vol] 28.0 mmol/L 21.0-32.0 [facility] Urea nitrogen/Creatinine [Mass ratio] 16.1 mg/mg 10-20 [facility] Laboratory - Hematology and Cell countsOrdered By: Yesika Faust on 02-17-2023 Erythrocyte distribution width (RBC) [Entitic vol] 56.0 fL 35.1-43.9 [facility] Erythrocyte distribution width (RBC) [Ratio] 17.5 % 11.6-14.6 [facility] Immature granulocytes/100 WBC (Bld) 0.300 % 0.0-0.9 [facility] Comment on above: IG% - Immature Granu locytes (promyelocytes, myelocytes and metamyelocytes) > 1% indicates that a LEFT SHIFT is Present. MCH (RBC) [Entitic mass] 26.3 pg 27.0-32.0 [facility] Nucleated RBC/100 WBC (Bld) [Ratio] 0 % 0-5 [facility] MCHC Auto (RBC) [Mass/Vol]Or dered By: Yesika Faust on 02-17-2023 MCHC (RBC) [Mass/Vol] 30.5 g/dL 32-36 [facility] No Panel InformationOrdered By: Yesika Faust on 02-17-2023 Estimated GFR (MDRD) Amer 106 mL/min >60 [facility] Comment on above: GFR Calc Estimated GFR (MDRD) Non-Af Amer 87 mL/min >60 [facility] Comment on above: Non- GFR Calc Platelets bldOrdered By: Randall Faust on 02-17-2023 Platelets (Bld) [#/Vol] 228 10*3/uL 150-450 [facility] Serum or plasma calcium madi urement (mass/volume)Ordered By: Yesika Faust on 02-17-2023 Calcium [Mass/Vol] 8.8 mg/dL 8.5-10.[address] [facility] Serum or plasma creatinine m easurement (mass/volume)Ordered By: Yesika Faust on 02-17-2023 Creatinine [Mass/Vol] 0.68 mg/dL 0.55-1.02 [facility] Comment on above: The validity of the calculated GFR & GFRAA in patients over 70 years has not been determined. Clinical correlation is essential. Serum or plasma urea nitroge n measurement (mass/volume)Ordered By: Yesika Faust on 02-17-2023 Urea nitrogen [Mass/Vol] 11 mg/dL 7-18 [facility] Thin prep Papanicolaou smear with manual screeningOrdered By: Yesika Faust on 02-17-2023 Thin prep Papanicolaou smear with manual screening 4 5-15 [facility] Basophil percentageOrdered B y: Cl Tsang on 01-12-2023 Cholesterol [Mass/Vol] 112 mg/dL <200 [facility] Comment on above: <200 mg/dL Desirable 200-240 mg/dL Borderline >240 mg/dL High Risk Triglyceride [Mass/Vol] 110 mg/dL <199 [facility] Comment on above: The drugs N-Acetylcy steine and Metamizole may falsely depress this assay.Serum Triglycerides Reference Interval Normal <150 mg/dL Borderline high 150 - 199 mg/dL High 200 - 499 mg/dL Very High > or = 500 mg/dL Serum or plasma cholesterol in HDL measurement (mass/volume)Ordered By: Cl Tsang on 01-12-2023 Cholesterol in HDL [Mass/Vol] 50 mg/dL >40 [facility] Comment on above: The drugs N-Acetylcy steine and Metamizole may falsely depress this assay. Reference Range HDL <40 mg/dL Low HDL Cholesterol HDL >or= 60 mg/dL High HDL Cholesterol Serum or plasma cholesterol in VLDL measurement (mass/volume)Ordered By: Cl Tsang on 01-12-2023 Cholesterol in VLDL [Mass/Vol] 22 mg/dL 5-40 [facility] Serum or plasma low density lipoprotein (LDL) cholesterol measurement (mass/volume)Ordered By: Cl Tsang on 01-12-2023 Cholesterol in LDL [Mass/Vol] 40 mg/dL 0-130 [facility] Basophil percentageOrdered B y: Yesika Faust on 11-18-2022 Chloride [Moles/Vol] 108 mmol/L 98-107 [facility] Glucose [Mass/Vol] 114 mg/dL 74-[address] [facility] Comment on above: Fasting Glucose resu lt from 100 to 125 mg/dL suggests IMPAIRED HOMEOSTASIS per A.D.A. criteria. Potassium [Moles/Vol] 4.1 mmol/L 3.5-5.1 [facility] Sodium [Moles/Vol] 142 mmol/L 136-[address] [facility] WBC (Bld) [#/Vol] 5.6 10*3/uL 4.4-11.[address] [facility] Blood erythrocytes count (nu mber/volume)Ordered By: Yesika Faust on 11-18-2022 RBC (Bld) [#/Vol] 3.89 10*6/uL 4.2-5.4 [facility] Blood hemoglobin measurement (mass/volume)Ordered By: Yesika Faust on 11-18-2022 Hemoglobin (Bld) [Mass/Vol] 10.5 g/dL 12.0-15.0 [facility] Blood platelet mean volumeOr dered By: Yesika Faust on 11-18-2022 Platelet mean volume (Bld) [Entitic vol] 10.7 fL 6.2-12.0 [facility] Determination of erythrocyte mean corpuscular volume (MCV)Ordered By: Yesika Faust on 11-18-2022 MCV (RBC) [Entitic vol] 88.4 fL 81-99 [facility] Hematocrit Auto (Bld) [Volum e fraction]Ordered By: Yesika Faust on 11-18-2022 Hematocrit (Bld) [Volume fraction] 34.4 % 37-47 [facility] Laboratory - Chemistry and C hemistry - challengeOrdered By: Yesika Faust on 11-18-2022 CO2 [Moles/Vol] 27.0 mmol/L 21.0-32.0 [facility] Urea nitrogen/Creatinine [Mass ratio] 18.9 mg/mg 10-20 [facility] Laboratory - Hematology and Cell countsOrdered By: Yesika Faust on 11-18-2022 Erythrocyte distribution width (RBC) [Entitic vol] 43.8 fL 35.1-43.9 [facility] Erythrocyte distribution width (RBC) [Ratio] 13.4 % 11.6-14.6 [facility] MCH (RBC) [Entitic mass] 27.0 pg 27.0-32.0 [facility] MCHC Auto (RBC) [Mass/Vol]Or dered By: Yesika Faust on 11-18-2022 MCHC (RBC) [Mass/Vol] 30.5 g/dL 32-36 [facility] No Panel InformationOrdered By: Yesika Faust on 11-18-2022 Estimated GFR (MDRD) Amer 115 mL/min >60 [facility] Comment on above: GFR Calc Estimated GFR (MDRD) Non-Af Amer 95 mL/min >60 [facility] Comment on above: Non- GFR Calc Platelets bldOrdered By: Randall Faust on 11-18-2022 Platelets (Bld) [#/Vol] 247 10*3/uL 150-450 [facility] Serum or plasma calcium madi urement (mass/volume)Ordered By: Yesika Faust on 11-18-2022 Calcium [Mass/Vol] 9.1 mg/dL 8.5-10.[address] [facility] Serum or plasma creatinine m easurement (mass/volume)Ordered By: Yesika Faust on 11-18-2022 Creatinine [Mass/Vol] 0.64 mg/dL 0.55-1.02 [facility] Comment on above: The validity of the calculated GFR & GFRAA in patients over 70 years has not been determined. Clinical correlation is essential. Serum or plasma urea nitroge n measurement (mass/volume)Ordered By: Yesika Faust on 11-18-2022 Urea nitrogen [Mass/Vol] 12 mg/dL 7-18 [facility] Thin prep Papanicolaou smear with manual screeningOrdered By: Yesika Faust on 11-18-2022 Thin prep Papanicolaou smear with manual screening 7 5-15 [facility] Absolute lymphocyte countOrd ered By: Yesika Faust on 08-19-2022 Lymphocytes Auto (Unsp spec) [#/Vol] 1.60 10*3/uL 0.83-4.51 [facility] Basophil percentageOrdered B y: Yesika Faust on 08-19-2022 Basophils/100 WBC (Bld) 0.4 % 0-1 [facility] Chloride [Moles/Vol] 105 mmol/L 98-107 [facility] Eosinophils/100 WBC (Bld) 0.2 % 0-5 [facility] Glucose [Mass/Vol] 96 mg/dL 74-[address] [facility] Neutrophils (Bld) [#/Vol] 3.3 10*3/uL 2.0-7.7 [facility] Neutrophils/100 WBC (Bld) 59.4 % 47-70 [facility] Potassium [Moles/Vol] 4.0 mmol/L 3.5-5.1 [facility] Sodium [Moles/Vol] 141 mmol/L 136-[address] [facility] WBC (Bld) [#/Vol] 5.6 10*3/uL 4.4-11.[address] [facility] Blood erythrocytes count (nu mber/volume)Ordered By: Yesika Faust on 08-19-2022 RBC (Bld) [#/Vol] 4.44 10*6/uL 4.2-5.4 [facility] Blood hemoglobin measurement (mass/volume)Ordered By: Yesika Faust on 08-19-2022 Hemoglobin (Bld) [Mass/Vol] 13.0 g/dL 12.0-15.0 [facility] Blood lymphocytes/100 leukoc ytesOrdered By: Yesika Faust on 08-19-2022 Lymphocytes/100 WBC (Bld) 28.8 % 19-41 [facility] Blood monocytes/100 leukocyt esOrdered By: Yesika Faust on 08-19-2022 Monocytes/100 WBC (Bld) 11.0 % 0-10 [facility] Blood platelet mean volumeOr dered By: Yesika Faust on 08-19-2022 Platelet mean volume (Bld) [Entitic vol] 10.7 fL 6.2-12.0 [facility] Determination of erythrocyte mean corpuscular volume (MCV)Ordered By: Yesika Faust on 08-19-2022 MCV (RBC) [Entitic vol] 93.0 fL 81-99 [facility] Hematocrit Auto (Bld) [Volum e fraction]Ordered By: Yesika Faust on 08-19-2022 Hematocrit (Bld) [Volume fraction] 41.3 % 37-47 [facility] Laboratory - Chemistry and C hemistry - challengeOrdered By: Yesika Faust on 08-19-2022 CO2 [Moles/Vol] 29.0 mmol/L 21.0-32.0 [facility] Urea nitrogen/Creatinine [Mass ratio] 19.4 mg/mg 10-20 [facility] Laboratory - Hematology and Cell countsOrdered By: Yesika Faust on 08-19-2022 Erythrocyte distribution width (RBC) [Entitic vol] 44.3 fL 35.1-43.9 [facility] Erythrocyte distribution width (RBC) [Ratio] 12.9 % 11.6-14.6 [facility] Immature granulocytes/100 WBC (Bld) 0.200 % 0.0-0.9 [facility] Comment on above: IG% - Immature Granu locytes (promyelocytes, myelocytes and metamyelocytes) > 1% indicates that a LEFT SHIFT is Present. MCH (RBC) [Entitic mass] 29.3 pg 27.0-32.0 [facility] Nucleated RBC/100 WBC (Bld) [Ratio] 0 % 0-5 [facility] MCHC Auto (RBC) [Mass/Vol]Or dered By: Yesika Faust on 08-19-2022 MCHC (RBC) [Mass/Vol] 31.5 g/dL 32-36 [facility] No Panel InformationOrdered By: Yesika Faust on 08-19-2022 Estimated GFR (MDRD) Amer 99 mL/min >60 [facility] Comment on above: GFR Calc Estimated GFR (MDRD) Non-Af Amer 82 mL/min >60 [facility] Comment on above: Non- GFR Calc Platelets bldOrdered By: Randallrafaela sheppard Christianne on 08-19-2022 Platelets (Bld) [#/Vol] 216 10*3/uL 150-450 [facility] Serum or plasma calcium madi urement (mass/volume)Ordered By: Yesika Faust on 08-19-2022 Calcium [Mass/Vol] 9.4 mg/dL 8.5-10.[address] [facility] Serum or plasma creatinine m easurement (mass/volume)Ordered By: Yesika Faust on 08-19-2022 Creatinine [Mass/Vol] 0.72 mg/dL 0.55-1.02 [facility] Comment on above: The validity of the calculated GFR & GFRAA in patients over 70 years has not been determined. Clinical correlation is essential. Serum or plasma urea nitroge n measurement (mass/volume)Ordered By: eJdsaeidmacarena Faust on 08-19-2022 Urea nitrogen [Mass/Vol] 14 mg/dL 7-18 [facility] Thin prep Papanicolaou smear with manual screeningOrdered By: Yesika Faust on 08-19-2022 Thin prep Papanicolaou smear with manual screening 7 5-15 [facility] Absolute lymphocyte counton 05-20-2022 Lymphocytes Auto (Unsp spec) [#/Vol] 1.88 10*3/uL 0.83-4.51 [facility] Work Phone: Basophil percentageon 2021 Basophils/100 WBC (Bld) 0.7 % 0-1 [facility] Work Phone: Chloride [Moles/Vol] 111 mmol/L 98-107 [facility] Work Phone: Eosinophils/100 WBC (Bld) 4.0 % 0-5 [facility] Work Phone: Glucose [Mass/Vol] 94 mg/dL 74-[address] [facility] Work Phone: Neutrophils (Bld) [#/Vol] 3.3 10*3/uL 2.0-7.7 [facility] Work Phone: Neutrophils/100 WBC (Bld) 55.6 % 47-70 [facility] Work Phone: Potassium [Moles/Vol] 4.1 mmol/L 3.5-5.1 [facility] Work Phone: Sodium [Moles/Vol] 139 mmol/L 136-[address] [facility] Work Phone: WBC (Bld) [#/Vol] 6.0 10*3/uL 4.4-11.[address] [facility] Work Phone: Blood erythrocytes count (nu mber/volume)on 05-20-2022 RBC (Bld) [#/Vol] 4.01 10*6/uL 4.2-5.4 [facility] Work Phone: Blood hemoglobin measurement (mass/volume)on 05-20-2022 Hemoglobin (Bld) [Mass/Vol] 13.0 g/dL 12.0-15.0 [facility] Work Phone: Blood lymphocytes/100 leukoc yteson 05-20-2022 Lymphocytes/100 WBC (Bld) 31.5 % 19-41 [facility] Work Phone: Blood monocytes/100 leukocyt eson 05-20-2022 Monocytes/100 WBC (Bld) 8.0 % 0-10 [facility] Work Phone: Blood platelet mean volumeon 05-20-2022 Platelet mean volume (Bld) [Entitic vol] 10.3 fL 6.2-12.0 [facility] Work Phone: Determination of erythrocyte mean corpuscular volume (MCV)on 05-20-2022 MCV (RBC) [Entitic vol] 99.3 fL 81-99 [facility] Work Phone: Hematocrit Auto (Bld) [Volum e fraction]on 05-20-2022 Hematocrit (Bld) [Volume fraction] 39.8 % 37-47 [facility] Work Phone: Laboratory - Chemistry and C hemistry - challengeon 05-20-2022 CO2 [Moles/Vol] 17.0 mmol/L 21.0-32.0 [facility] Work Phone: Urea nitrogen/Creatinine [Mass ratio] 13.2 mg/mg 10-20 [facility] Work Phone: Laboratory - Hematology and Cell countson 05-20-2022 Erythrocyte distribution width (RBC) [Entitic vol] 52.0 fL 35.1-43.9 [facility] Work Phone: Erythrocyte distribution width (RBC) [Ratio] 14.4 % 11.6-14.6 [facility] Work Phone: Immature granulocytes/100 WBC (Bld) 0.200 % 0.0-0.9 [facility] Work Phone: Comment on above: IG% - Immature Granu locytes (promyelocytes, myelocytes and metamyelocytes) > 1% indicates that a LEFT SHIFT is Present. MCH (RBC) [Entitic mass] 32.4 pg 27.0-32.0 [facility] Work Phone: Nucleated RBC/100 WBC (Bld) [Ratio] 0 % 0-5 [facility] Work Phone: MCHC Auto (RBC) [Mass/Vol]on 05-20-2022 MCHC (RBC) [Mass/Vol] 32.7 g/dL 32-36 [facility] Work Phone: No Panel Informationon 05-20 Estimated GFR (MDRD) Amer 94 mL/min >60 [facility] Work Phone: Comment on above: GFR Calc Estimated GFR (MDRD) Non-Af Amer 77 mL/min >60 [facility] Work Phone: Comment on above: Non- GFR Calc Platelets bldon 05-20-2022 Platelets (Bld) [#/Vol] 188 10*3/uL 150-450 [facility] Work Phone: Serum or plasma calcium madi urement (mass/volume)on 05-20-2022 Calcium [Mass/Vol] 9.5 mg/dL 8.5-10.[address] [facility] Work Phone: Serum or plasma creatinine m easurement (mass/volume)on 05-20-2022 Creatinine [Mass/Vol] 0.76 mg/dL 0.55-1.02 [facility] Work Phone: Comment on above: The validity of the calculated GFR & GFRAA in patients over 70 years has not been determined. Clinical correlation is essential. Serum or plasma urea nitroge n measurement (mass/volume)on 05-20-2022 Urea nitrogen [Mass/Vol] 10 mg/dL 7-18 [facility] Work Phone: Thin prep Papanicolaou smear with manual screeningon 05-20-2022 Thin prep Papanicolaou smear with manual screening 11 5-15 [facility] Work Phone: Bilirubin Test strip Ql (U)o n 03-07-2022 Bilirubin Ql (U) Negative Negative [facility] Work Phone: Ketones Test strip Ql (U)on 03-07-2022 Ketones Ql (U) Negative Negative [facility] Work Phone: Nitrite Test strip Ql (U)on 03-07-2022 Nitrite Ql (U) Positive Negative [facility] Work Phone: Protein Test strip Ql (U)on 03-07-2022 Protein Ql (U) Negative Negative [facility] Work Phone: Urine blood detectionon 02-13 RBC Ql (U) 25 /ul Negative [facility] Work Phone: Urine clarityon 03-07-2022 Clarity (U) Clear Clear [facility] Work Phone: Urine color determinationon 03-07-2022 Color (U) Yellow Yellow [facility] Work Phone: Urine glucose detectionon Glucose Ql (U) Normal mg/dl Normal [facility] Work Phone: Urine leukocyte esterase det ection by dipstickon 03-07-2022 Leukocyte esterase Test strip Ql (U) 500 /ul Negative [facility] Work Phone: Urine pHon 03-07-2022 pH (U) 6.5 [pH] 5.0 - 8.0 [facility] Work Phone: Urine specific gravity measu rementon 03-07-2022 Specific gravity (U) [Rel density] 1.010 1.002-1.03 0 [facility] Work Phone: Urobilinogen Auto test strip Ql (U)on 03-07-2022 Urobilinogen Ql (U) Normal mg/dl Normal [facility] Work Phone: Basophil percentageon 2021 Cholesterol [Mass/Vol] 117 mg/dL <200 [facility] Work Phone: Comment on above: <200 mg/dL Desirable 200-240 mg/dL Borderline >240 mg/dL High Risk Triglyceride [Mass/Vol] 118 mg/dL [facility] Work Phone: Comment on above: The drugs N-Acetylcy steine and Metamizole may falsely depress this assay.Serum Triglycerides Reference Interval Normal <150 mg/dL Borderline high 150 - 199 mg/dL High 200 - 499 mg/dL Very High > or = 500 mg/dL Serum or plasma cholesterol in HDL measurement (mass/volume)on 01-13-2022 Cholesterol in HDL [Mass/Vol] 44 mg/dL [facility] Work Phone: Comment on above: The drugs N-Acetylcy steine and Metamizole may falsely depress this assay. Reference Range HDL <40 mg/dL Low HDL Cholesterol HDL >or= 60 mg/dL High HDL Cholesterol Serum or plasma cholesterol in VLDL measurement (mass/volume)on 01-13-2022 Cholesterol in VLDL [Mass/Vol] 24 mg/dL 5-40 [facility] Work Phone: Serum or plasma low density lipoprotein (LDL) cholesterol measurement (mass/volume)on 01-13-2022 Cholesterol in LDL [Mass/Vol] 49 mg/dL 0-130 [facility] Work Phone: Absolute lymphocyte counton 11-12-2021 Lymphocytes Auto (Unsp spec) [#/Vol] 1.48 10*3/uL 0.83-4.51 [facility] Work Phone: Basophil percentageon 2021 Basophils/100 WBC (Bld) 0.5 % 0-1 [facility] Work Phone: Chloride [Moles/Vol] 108 mmol/L 98-107 [facility] Work Phone: Eosinophils/100 WBC (Bld) 1.4 % 0-5 [facility] Work Phone: Glucose [Mass/Vol] 105 mg/dL 74-[address] [facility] Work Phone: Comment on above: Fasting Glucose resu lt from 100 to 125 mg/dL suggests IMPAIRED HOMEOSTASIS per A.D.A. criteria. Neutrophils (Bld) [#/Vol] 3.5 10*3/uL 2.0-7.7 [facility] Work Phone: Neutrophils/100 WBC (Bld) 61.7 % 47-70 [facility] Work Phone: Potassium [Moles/Vol] 3.8 mmol/L 3.5-5.1 [facility] Work Phone: Sodium [Moles/Vol] 139 mmol/L 136-[address] [facility] Work Phone: WBC (Bld) [#/Vol] 5.7 10*3/uL 4.4-11.[address] [facility] Work Phone: Blood erythrocytes count (nu mber/volume)on 11-12-2021 RBC (Bld) [#/Vol] 4.44 10*6/uL 4.2-5.4 [facility] Work Phone: Blood hemoglobin measurement (mass/volume)on 11-12-2021 Hemoglobin (Bld) [Mass/Vol] 13.7 g/dL 12.0-15.0 [facility] Work Phone: Blood lymphocytes/100 leukoc yteson 11-12-2021 Lymphocytes/100 WBC (Bld) 26.0 % 19-41 [facility] Work Phone: Blood monocytes/100 leukocyt eson 11-12-2021 Monocytes/100 WBC (Bld) 10.0 % 0-10 [facility] Work Phone: Blood platelet mean volumeon 11-12-2021 Platelet mean volume (Bld) [Entitic vol] 10.2 fL 6.2-12.0 [facility] Work Phone: Determination of erythrocyte mean corpuscular volume (MCV)on 11-12-2021 MCV (RBC) [Entitic vol] 89.4 fL 81-99 [facility] Work Phone: Hematocrit Auto (Bld) [Volum e fraction]on 11-12-2021 Hematocrit (Bld) [Volume fraction] 39.7 % 37-47 [facility] Work Phone: Laboratory - Chemistry and C hemistry - challengeon 11-12-2021 CO2 [Moles/Vol] 29.0 mmol/L 21.0-32.0 [facility] Work Phone: Urea nitrogen/Creatinine [Mass ratio] 16.9 mg/mg 10-20 [facility] Work Phone: Laboratory - Hematology and Cell countson 11-12-2021 Erythrocyte distribution width (RBC) [Entitic vol] 41.8 fL 35.1-43.9 [facility] Work Phone: Erythrocyte distribution width (RBC) [Ratio] 12.8 % 11.6-14.6 [facility] Work Phone: Immature granulocytes/100 WBC (Bld) 0.400 % 0.0-0.9 [facility] Work Phone: Comment on above: IG% - Immature Granu locytes (promyelocytes, myelocytes and metamyelocytes) > 1% indicates that a LEFT SHIFT is Present. MCH (RBC) [Entitic mass] 30.9 pg 27.0-32.0 [facility] Work Phone: Nucleated RBC/100 WBC (Bld) [Ratio] 0 % 0-5 [facility] Work Phone: MCHC Auto (RBC) [Mass/Vol]on 11-12-2021 MCHC (RBC) [Mass/Vol] 34.5 g/dL 32-36 [facility] Work Phone: No Panel Informationon 11-12 Estimated GFR (MDRD) Amer 101 mL/min >60 [facility] Work Phone: Comment on above: GFR Calc Estimated GFR (MDRD) Non-Af Amer 84 mL/min >60 [facility] Work Phone: Comment on above: Non- GFR Calc Platelets bldon 11-12-2021 Platelets (Bld) [#/Vol] 194 10*3/uL 150-450 [facility] Work Phone: Serum or plasma calcium madi urement (mass/volume)on 11-12-2021 Calcium [Mass/Vol] 9.5 mg/dL 8.5-10.[address] [facility] Work Phone: Serum or plasma creatinine m easurement (mass/volume)on 11-12-2021 Creatinine [Mass/Vol] 0.71 mg/dL 0.55-1.02 [facility] Work Phone: Comment on above: The validity of the calculated GFR & GFRAA in patients over 70 years has not been determined. Clinical correlation is essential. Serum or plasma urea nitroge n measurement (mass/volume)on 11-12-2021 Urea nitrogen [Mass/Vol] 12 mg/dL 7-18 [facility] Work Phone: Thin prep Papanicolaou smear with manual screeningon 11-12-2021 Thin prep Papanicolaou smear with manual screening 2 5-15 [facility] Work Phone: XR SPINE CERVICAL 1 VIEWon [...] Date: 07/04/2019 10:22:47 AM Ordering Provider:Dc Mota [facility] ([place]) .GFRon 06-09-2019 GFR >60 [facility] ([place]) Comment on above: Result Comment: GFR Population [...] #### C BC, DIFF, MORPH, BMP, GFR ####[place] [address] GFR Non- >60 [facility] ([place]) Comment on above: Result Comment: GFR Population [...] #### C BC, DIFF, MORPH, BMP, GFR ####[address] [address] .Manual Diffon 06-09-2019 Basophil %, Manual 1.0 % Normal 0.0-2.5 [facility] ([place]) Comment on above: Performed By: #### C BC, DIFF, MORPH, BMP, GFR ####[place] [address] Basophil, Abs Manual 0.08 10 3/mcL Normal 0.00-0.27 [facility] ([place]) Comment on above: Performed By: #### C BC, DIFF, MORPH, BMP, GFR ####[place] [address] Cells Counted 100 Normal [facility] ([place]) Comment on above: Performed By: #### C BC, DIFF, MORPH, BMP, GFR ####[place] [address] Eosinophil %, Manual 2.0 % Normal 0.0-6.0 [facility] ([place]) Comment on above: Performed By: #### C BC, DIFF, MORPH, BMP, GFR ####[place] [address] Eosinophil, Abs Manual 0.16 10 3/mcL Normal 0.00-0.65 [facility] ([place]) Comment on above: Performed By: #### C BC, DIFF, MORPH, BMP, GFR ####[place] [address] Lymphocyte %, Manual 9.0 % Low 20.0-40.0 [facility] ([place]) Comment on above: Performed By: #### C BC, DIFF, MORPH, BMP, GFR ####[place] [address] Lymphocyte, Abs Manual 0.72 10 3/mcL Low 0.90-4.32 [facility] ([place]) Comment on above: Performed By: #### C BC, DIFF, MORPH, BMP, GFR ####[place] [address] Monocyte %, Manual 6.0 % Normal 2.0-13.0 [facility] [place] Comment on above: Performed By: #### C BC, DIFF, MORPH, BMP, GFR ####[place] [address] Monocyte, Abs Manual 0.48 10 3/mcL Normal 0.09-1.40 [facility] ([place]) Comment on above: Performed By: #### C BC, DIFF, MORPH, BMP, GFR ####[place] [address] Myelocyte 1.0 % Normal [facility] ([place]) Comment on above: Performed By: #### C BC, DIFF, MORPH, BMP, GFR ####[place] [address] Neutrophil %, Manual 81.0 % High 50.0-75.0 [facility] ([place]) Comment on above: Performed By: #### C BC, DIFF, MORPH, BMP, GFR ####[place] [address] Neutrophil, Abs Manual 6.48 10 3/mcL Normal 2.25-8.10 [facility] ([place]) Comment on above: Performed By: #### C BC, DIFF, MORPH, BMP, GFR ####[place] [address] .Morphon 06-09-2019 Platelets (Bld) [#/Vol] Normal Normal [facility] ([place]) Comment on above: Performed By: #### C BC, DIFF, MORPH, BMP, GFR ####[place] [address] Polychrom Slight Normal [facility] ([place] Comment on above: Performed By: #### C BC, DIFF, MORPH, BMP, GFR ####[place] [address] BMPon 06-09-2019 Creatinine [Mass/Vol] 0.75 mg/dL Normal 0.50-1.20 [facility] ([place]) Comment on above: Performed By: #### C BC, DIFF, MORPH, BMP, GFR ####[place] [address] Urea nitrogen/Creatinine [Mass ratio] 18.7 ratio Normal 10.0-22.0 [facility] ([place]) Comment on above: Performed By: #### C BC, DIFF, MORPH, BMP, GFR ####[address] [address] Calcium [Mass/Vol] 8.2 mg/dL Low 8.4-10.1 [facility] [place] Comment on above: Performed By: #### C BC, DIFF, MORPH, BMP, GFR ####[address] [address] Chloride [Moles/Vol] 106 mmol/L Normal 98-110 [facility] ([place]) Comment on above: Performed By: #### C BC, DIFF, MORPH, BMP, GFR ####[address] [address] CO2 [Moles/Vol] 18 mmol/L Low 22-32 [facility] ([place]) Comment on above: Performed By: #### C BC, DIFF, MORPH, BMP, GFR ####[address] [address] Electrolyte Balance 16.0 mEq/L High 4.0-15.0 [facility] ([place]) Comment on above: Performed By: #### C BC, DIFF, MORPH, BMP, GFR ####[address] [address] Glucose [Mass/Vol] 109 mg/dL Normal 82-115 [facility] [place] Comment on above: Performed By: #### C BC, DIFF, MORPH, BMP, GFR ####[address] [address] Potassium [Moles/Vol] 3.8 mmol/L Normal 3.5-5.0 [facility] ([place]) Comment on above: Performed By: #### C BC, DIFF, MORPH, BMP, GFR ####[address] [address] Sodium [Moles/Vol] 140 mmol/L Normal 136-145 [facility] [place] Comment on above: Performed By: #### C BC, DIFF, MORPH, BMP, GFR ####[address] [address] Urea nitrogen [Mass/Vol] 14.0 mg/dL Normal 8.0-22.0 [facility] ([place]) Comment on above: Performed By: #### C BC, DIFF, MORPH, BMP, GFR ####[address] [address] CBCon 06-09-2019 Platelet mean volume (Bld) [Entitic vol] 8.6 fL Normal 6.6-10.5 [facility] ([place]) Comment on above: Performed By: #### C BC, DIFF, MORPH, BMP, GFR ####[address] [address] Platelets (Bld) [#/Vol] 229 10 3/mcL Normal 150-450 [facility] ([place]) Comment on above: Performed By: #### C BC, DIFF, MORPH, BMP, GFR ####[place] [id number] WBC (Bld) [#/Vol] 8.00 10 3/mcL Normal 4.50-10.80 [facility] ([place]) Comment on above: Performed By: #### C BC, DIFF, MORPH, BMP, GFR ####[place] [address] Erythrocyte distribution width (RBC) [Ratio] 13.8 % Normal 11.5-15.5 [facility] ([place]) Comment on above: Performed By: #### C BC, DIFF, MORPH, BMP, GFR ####[place] [address] Hematocrit (Bld) [Volume fraction] 26.6 % Low 34.0-46.0 [facility] ([place]) Comment on above: Performed By: #### C BC, DIFF, MORPH, BMP, GFR ####[address] [address] Hemoglobin (Bld) [Mass/Vol] 9.1 G/dL Low 12.0-16.0 [facility] ([place]) Comment on above: Performed By: #### C BC, DIFF, MORPH, BMP, GFR ####[address] [address] MCH (RBC) [Entitic mass] 30.1 pg Normal 27.0-33.0 [facility] ([place]) Comment on above: Performed By: #### C BC, DIFF, MORPH, BMP, GFR ####[address] [address] MCHC (RBC) [Mass/Vol] 34.3 G/dL Normal 32.0-36.0 [facility] ([place]) Comment on above: Performed By: #### C BC, DIFF, MORPH, BMP, GFR ####[place] [address] MCV (RBC) [Entitic vol] 87.9 fL Normal 80.0-99.0 [facility] ([place]) Comment on above: Performed By: #### C BC, DIFF, MORPH, BMP, GFR ####[place] [address] RBC (Bld) [#/Vol] 3.03 10 6/mcL Low 4.10-5.30 [facility] ([place]) Comment on above: Performed By: #### C BC, DIFF, MORPH, BMP, GFR ####[place] [address] XR CHEST 2 VIEWSon 9 XR CHEST [...] Sign Date: 06/09/2019 7:22:18 AM Normal [facility] ([place]) .GFRon 06-08-2019 GFR >60 Normal [facility] ([place]) Comment on above: Result Comment: GFR Population [...] meters Performed By: #### B MP, GFR ####[address] [address] GFR Non- >60 Normal [facility] ([place]) Comment on above: Result Comment: GFR Population [...] meters Performed By: #### B MP, GFR ####[address] [address] BMPon 06-08-2019 Creatinine [Mass/Vol] 0.60 mg/dL Normal 0.50-1.20 [facility] ([place]) Comment on above: Performed By: #### B MP, GFR ####[address] [address] Urea nitrogen/Creatinine [Mass ratio] 21.7 ratio Normal 10.0-22.0 [facility] ([place]) Comment on above: Performed By: #### B MP, GFR ####[address] [address] Calcium [Mass/Vol] 7.9 mg/dL Low 8.4-10.1 [facility] ([place]) Comment on above: Performed By: #### B MP, GFR ####[address] [address] Chloride [Moles/Vol] 107 mmol/L Normal 98-110 [facility] ([place]) Comment on above: Performed By: #### B MP, GFR ####[address] [address] CO2 [Moles/Vol] 28 mmol/L Normal 22-32 [facility] ([place]) Comment on above: Performed By: #### B MP, GFR ####[address] [address] Electrolyte Balance 8.0 mEq/L Normal 4.0-15.0 [facility] ([place]) Comment on above: Performed By: #### B MP, GFR ####[address] [address] Glucose [Mass/Vol] 115 mg/dL Normal 82-115 [facility] [place] Comment on above: Performed By: #### B MP, GFR ####[address] [address] Potassium [Moles/Vol] 3.7 mmol/L Normal 3.5-5.0 [facility] ([place]) Comment on above: Performed By: #### B MP, GFR ####[address] [address] Sodium [Moles/Vol] 143 mmol/L Normal 136-145 [facility] [place] Comment on above: Performed By: #### B MP, GFR ####[address] [address] Urea nitrogen [Mass/Vol] 13.0 mg/dL Normal 8.0-22.0 [facility] ([place]) Comment on above: Performed By: #### B MP, GFR ####[address] [address] XR CHEST 2 VIEWSon 9 XR CHEST [...] Sign Date: 06/08/2019 6:29:24 AM Normal [facility] ([place]) .Auto Diffon 06-07-2019 Ammonia (P) [Mass/Vol] 0.40 10 3/mcL Normal 0.09-1.40 [facility] ([place]) Comment on above: Performed By: #### C BC, ADIFF, ANEU, CMP, GFR ####[address] [address] Basophils (Bld) [#/Vol] 0.00 10 3/mcL Normal 0.00-0.27 [facility] ([place]) Comment on above: Performed By: #### C BC, ADIFF, ANEU, CMP, GFR ####[address] [address] Basophils/100 WBC (Bld) 0.4 % Normal 0.0-2.5 [facility] ([place]) Comment on above: Performed By: #### C BC, ADIFF, ANEU, CMP, GFR ####[address] [address] Eosinophils (Bld) [#/Vol] 0.30 10 3/mcL Normal 0.00-0.65 [facility] ([place]) Comment on above: Performed By: #### C BC, ADIFF, ANEU, CMP, GFR ####[address] [address] Eosinophils/100 WBC (Bld) 6.6 % High 0.0-6.0 [facility] ([place]) Comment on above: Performed By: #### C BC, ADIFF, ANEU, CMP, GFR ####[address] [address] Lymphocytes (Bld) [#/Vol] 1.00 10 3/mcL Normal 0.90-4.32 [facility] ([place]) Comment on above: Performed By: #### C BC, ADIFF, ANEU, CMP, GFR ####[address] [address] Lymphocytes/100 WBC (Bld) 19.0 % Low 20.0-40.0 [facility] ([place]) Comment on above: Performed By: #### C BC, ADIFF, ANEU, CMP, GFR ####[address] [address] Monocytes/100 WBC (Bld) 7.4 % Normal 2.0-13.0 [facility] ([place]) Comment on above: Performed By: #### C BC, ADIFF, ANEU, CMP, GFR ####[address] [address] Neutrophils/100 WBC (Bld) 66.6 % Normal 50.0-75.0 [facility] ([place]) Comment on above: Performed By: #### C BC, ADIFF, ANEU, CMP, GFR ####[address] [address] Ammonia (P) [Mass/Vol] 0.50 10 3/mcL Normal 0.09-1.40 [facility] ([place]) Comment on above: Performed By: #### C BC, ADIFF, ANEU, BMP, GFR ####[address] [address] Basophils (Bld) [#/Vol] 0.00 10 3/mcL Normal 0.00-0.27 [facility] ([place]) Comment on above: Performed By: #### C BC, ADIFF, ANEU, BMP, GFR ####[address] [address] Basophils/100 WBC (Bld) 0.7 % Normal 0.0-2.5 [facility] ([place] Comment on above: Performed By: #### C BC, ADIFF, ANEU, BMP, GFR ####[address] [address] Eosinophils (Bld) [#/Vol] 0.10 10 3/mcL Normal 0.00-0.65 [facility] ([place]) Comment on above: Performed By: #### C BC, ADIFF, ANEU, BMP, GFR ####[address] [address] Eosinophils/100 WBC (Bld) 1.8 % Normal 0.0-6.0 [facility] ([place]) Comment on above: Performed By: #### C BC, ADIFF, ANEU, BMP, GFR ####[address] [address] Lymphocytes (Bld) [#/Vol] 2.10 10 3/mcL Normal 0.90-4.32 [facility] ([place]) Comment on above: Performed By: #### C BC, ADIFF, ANEU, BMP, GFR ####[address] [address] Lymphocytes/100 WBC (Bld) 32.8 % Normal 20.0-40.0 [facility] ([place] Comment on above: Performed By: #### C BC, ADIFF, ANEU, BMP, GFR ####[address] [address] Monocytes/100 WBC (Bld) 7.1 % Normal 2.0-13.0 [facility] ([place] Comment on above: Performed By: #### C BC, ADIFF, ANEU, BMP, GFR ####[address] [address] Neutrophils/100 WBC (Bld) 57.6 % Normal 50.0-75.0 [facility] ([place] Comment on above: Performed By: #### C BC, ADIFF, ANEU, BMP, GFR ####[address] [address] Ammonia (P) [Mass/Vol] 0.60 10 3/mcL Normal 0.09-1.40 [facility] ([place]) Comment on above: Performed By: #### C STEPHANIE KRISHNAMURTHY, ANEU #### [address] [address] #### BMP, GFR #### [address] [address] Basophils (Bld) [#/Vol] 0.00 10 3/mcL Normal 0.00-0.27 [facility] ([place]) Comment on above: Performed By: #### C STEPHANIE KRISHNAMURTHY, ANEU #### [place] [address] #### BMP, GFR #### [address] [address] Basophils/100 WBC (Bld) 0.5 % Normal 0.0-2.5 [facility] ([place] Comment on above: Performed By: #### C STEPHANIE KRISHNAMURTHY, ANEU #### [address] [address] #### BMP, GFR #### [address] [address] Eosinophils (Bld) [#/Vol] 0.10 10 3/mcL Normal 0.00-0.65 [facility] ([place]) Comment on above: Performed By: #### C STEPHANIE KRISHNAMURTHY, ANEU #### [place] [address] #### BMP, GFR #### [address] [address] Eosinophils/100 WBC (Bld) 2.2 % Normal 0.0-6.0 [facility] ([place] Comment on above: Performed By: #### C STEPHANIE KRISHNAMURTHY, ANEU #### [address] [address] #### BMP, GFR #### [address] [address] Lymphocytes (Bld) [#/Vol] 0.80 10 3/mcL Low 0.90-4.32 [facility] ([place]) Comment on above: Performed By: #### C BC, ADIFF, ANEU #### [address] [address] #### BMP, GFR #### [address] [address] Lymphocytes/100 WBC (Bld) 12.3 % Low 20.0-40.0 [facility] ([place] Comment on above: Performed By: #### C BC, ADIFF, ANEU #### [address] [address] #### BMP, GFR #### [address] [address] Monocytes/100 WBC (Bld) 9.5 % Normal 2.0-13.0 [facility] ([place] Comment on above: Performed By: #### C BC, ADIFF, ANEU #### [address] [address] #### BMP, GFR #### [address] [address] Neutrophils/100 WBC (Bld) 75.5 % High 50.0-75.0 [facility] ([place] Comment on above: Performed By: #### C BC, ADIFF, ANEU #### [address] [address] #### BMP, GFR #### [address] [address] .GFRon 06-07-2019 GFR >60 Normal [facility] ([place]) Comment on above: Result Comment: [...] #### C BC, ADIFF, ANEU, CMP, GFR ####[address] [address] GFR Non- >60 Normal [facility] ([place] Comment on above: Result Comment: GFR Population [...] #### C BC, ADIFF, ANEU, CMP, GFR ####[address] [address] GFR >60 Normal [facility] ([place]) Comment on above: Result Comment: GFR Population [...] #### C BC, ADIFF, ANEU, BMP, GFR ####[address] [address] GFR Non- >60 Normal [facility] ([place] Comment on above: Result Comment: GFR Population [...] #### C BC, STEPHANIE, ANEU, BMP, GFR ####[place] [address] [place] [address] GFR Non- >60 Normal [facility] ([place] Comment on above: Result Comment: GFR Population [...] #### C BC, ADYAMILEX, ANEU, BMP, GFR ####[address] [address] GFR >60 Normal [facility] ([place] Comment on above: Result Comment: GFR Population [...] #### C BC, ADIFF, ANEU, BMP, GFR ####[address] [address] .NEUABSon 06-07-2019 Neutrophils (Bld) [#/Vol] 3.40 10 3/mcL Normal 2.25-8.10 [facility] ([place] Comment on above: Performed By: #### C BC, ADIFF, ANEU, CMP, GFR ####[place] [address] Neutrophils (Bld) [#/Vol] 3.80 10 3/mcL Normal 2.25-8.10 [facility] ([place] Comment on above: Performed By: #### C BC, ADIFF, ANEU, BMP, GFR ####[place] [address] Neutrophils (Bld) [#/Vol] 5.00 10 3/mcL Normal 2.25-8.10 [facility] ([place] Comment on above: Performed By: #### C BC, ADIFF, ANEU #### [address] [address] #### BMP, GFR #### [place] [address] BMPon 06-07-2019 Creatinine [Mass/Vol] 0.66 mg/dL Normal 0.50-1.20 [facility] ([place]) Comment on above: Performed By: #### C BC, ADIFF, ANEU, BMP, GFR ####[place] [address] Urea nitrogen/Creatinine [Mass ratio] 16.7 ratio Normal 10.0-22.0 [facility] ([place] Comment on above: Performed By: #### C BC, ADIFF, ANEU, BMP, GFR ####[place] [address] Calcium [Mass/Vol] 7.8 mg/dL Low 8.4-10.1 [facility] [place] Comment on above: Performed By: #### C BC, ADIFF, ANEU, BMP, GFR ####[address] [address] Chloride [Moles/Vol] 106 mmol/L Normal 98-110 [facility] ([place] Comment on above: Performed By: #### C BC, ADIFF, ANEU, BMP, GFR ####[address] [address] CO2 [Moles/Vol] 26 mmol/L Normal 22-32 [facility] ([place]) Comment on above: Performed By: #### C BC, ADIFF, ANEU, BMP, GFR ####[address] [address] Electrolyte Balance 9.0 mEq/L Normal 4.0-15.0 [facility] ([place] Comment on above: Performed By: #### C BC, ADIFF, ANEU, BMP, GFR ####[address] [address] Glucose [Mass/Vol] 101 mg/dL Normal 82-115 [facility] [place] Comment on above: Performed By: #### C BC, ADIFF, ANEU, BMP, GFR ####[address] [address] Potassium [Moles/Vol] 3.6 mmol/L Normal 3.5-5.0 [facility] ([place]) Comment on above: Performed By: #### C BC, ADIFF, ANEU, BMP, GFR ####[address] [address] Sodium [Moles/Vol] 141 mmol/L Normal 136-145 [facility] [place] Comment on above: Performed By: #### C BC, ADIFF, ANEU, BMP, GFR ####[address] [address] Urea nitrogen [Mass/Vol] 11.0 mg/dL Normal 8.0-22.0 [facility] ([place] Comment on above: Performed By: #### C BC, ADIFF, ANEU, BMP, GFR ####[address] [address] Calcium [Mass/Vol] 8.4 mg/dL Normal 8.4-10.1 [facility] [place] Comment on above: Performed By: #### C BC, ADIFF, ANEU, BMP, GFR ####[address] [address] Chloride [Moles/Vol] 106 mmol/L Normal 98-110 [facility] ([place] Comment on above: Performed By: #### C BC, ADIFF, ANEU, BMP, GFR ####[address] [address] CO2 [Moles/Vol] 25 mmol/L Normal 22-32 [facility] ([place]) Comment on above: Performed By: #### C BC, ADIFF, ANEU, BMP, GFR ####[place] [address] Creatinine [Mass/Vol] 0.73 mg/dL Normal 0.50-1.20 [facility] ([place]) Comment on above: Performed By: #### C BC, ADIFF, ANEU, BMP, GFR ####[place] [address] Electrolyte Balance 9.0 mEq/L Normal 4.0-15.0 [facility] ([place] Comment on above: Performed By: #### C BC, ADIFF, ANEU, BMP, GFR ####[address] [address] Glucose [Mass/Vol] 230 mg/dL High 82-115 [facility] [place] Comment on above: Performed By: #### C BC, ADIFF, ANEU, BMP, GFR ####[place] [address] Potassium [Moles/Vol] 3.8 mmol/L Normal 3.5-5.0 [facility] ([place]) Comment on above: Performed By: #### C BC, ADIFF, ANEU, BMP, GFR ####[address] [address] Sodium [Moles/Vol] 140 mmol/L Normal 136-145 [facility] [place] Comment on above: Performed By: #### C BC, ADIFF, ANEU, BMP, GFR ####[place] [address] Urea nitrogen [Mass/Vol] 16.0 mg/dL Normal 8.0-22.0 [facility] ([place] Comment on above: Performed By: #### C BC, ADIFF, ANEU, BMP, GFR ####[place] [address] Urea nitrogen/Creatinine [Mass ratio] 21.9 ratio Normal 10.0-22.0 [facility] ([place] Comment on above: Performed By: #### C BC, ADIFF, ANEU, BMP, GFR ####[place] [address] CBCon 06-07-2019 Erythrocyte distribution width (RBC) [Ratio] 12.5 % Normal 11.5-15.5 [facility] ([place] Comment on above: Performed By: #### C BC, ADIFF, ANEU, CMP, GFR ####[place] [address] Hematocrit (Bld) [Volume fraction] 35.3 % Low 40.0-52.0 [facility] ([place] Comment on above: Performed By: #### C BC, ADIFF, ANEU, CMP, GFR ####[place] [address] Hemoglobin (Bld) [Mass/Vol] 12.0 G/dL Low 13.0-17.5 [facility] ([place] Comment on above: Performed By: #### C BC, ADIFF, ANEU, CMP, GFR ####[place] [address] MCH (RBC) [Entitic mass] 32.0 pg Normal 27.0-33.0 [facility] ([place] Comment on above: Performed By: #### C BC, ADIFF, ANEU, CMP, GFR ####[address] [place], [place] [address] MCHC (RBC) [Mass/Vol] 34.1 G/dL Normal 32.0-36.0 [facility] ([place]) Comment on above: Performed By: #### C BC, ADIFF, ANEU, CMP, GFR ####[address] [address] MCV (RBC) [Entitic vol] 94.1 fL Normal 81.0-100.0 [facility] ([place] Comment on above: Performed By: #### C BC, ADIFF, ANEU, CMP, GFR ####[address] [address] Platelet mean volume (Bld) [Entitic vol] 6.9 fL Normal 6.4-10.5 [facility] ([place]) Comment on above: Performed By: #### C BC, ADIFF, ANEU, CMP, GFR ####[address] [address] Platelets (Bld) [#/Vol] 109 10 3/mcL Low 150-450 [facility] ([place] Comment on above: Performed By: #### C BC, ADIFF, ANEU, CMP, GFR ####[address] [address] RBC (Bld) [#/Vol] 3.76 10 6/mcL Low 4.50-6.00 [facility] ([place]) Comment on above: Performed By: #### C BC, ADIFF, ANEU, CMP, GFR ####[place] [id number] WBC (Bld) [#/Vol] 5.00 10 3/mcL Normal 4.50-10.80 [facility] ([place]) Comment on above: Performed By: #### C BC, ADIFF, ANEU, CMP, GFR ####[place] [address] Erythrocyte distribution width (RBC) [Ratio] 13.6 % Normal 11.5-15.5 [facility] ([place] Comment on above: Performed By: #### C BC, ADIFF, ANEU, BMP, GFR ####[address] [address] Hematocrit (Bld) [Volume fraction] 28.1 % Low 34.0-46.0 [facility] ([place] Comment on above: Performed By: #### C BC, ADIFF, ANEU, BMP, GFR ####[place] [address] Hemoglobin (Bld) [Mass/Vol] 9.4 G/dL Low 12.0-16.0 [facility] ([place] Comment on above: Performed By: #### C BC, ADIFF, ANEU, BMP, GFR ####[place] [address] MCH (RBC) [Entitic mass] 32.4 pg Normal 27.0-33.0 [facility] ([place] Comment on above: Performed By: #### C BC, ADIFF, ANEU, BMP, GFR ####[place] [address] MCHC (RBC) [Mass/Vol] 33.5 G/dL Normal 32.0-36.0 [facility] ([place]) Comment on above: Performed By: #### C BC, ADIFF, ANEU, BMP, GFR ####[place] [address] MCV (RBC) [Entitic vol] 96.7 fL Normal 80.0-99.0 [facility] ([place] Comment on above: Performed By: #### C BC, ADIFF, ANEU, BMP, GFR ####[place] [address] Platelet mean volume (Bld) [Entitic vol] 7.5 fL Normal 6.6-10.5 [facility] ([place]) Comment on above: Performed By: #### C BC, ADIFF, ANEU, BMP, GFR ####[place] [id number] Platelets (Bld) [#/Vol] 257 10 3/mcL Normal 150-450 [facility] ([place] Comment on above: Performed By: #### C BC, ADIFF, ANEU, BMP, GFR ####[id number] [place], [place] [address] RBC (Bld) [#/Vol] 2.90 10 6/mcL Low 4.10-5.30 [facility] ([place]) Comment on above: Performed By: #### C BC, ADIFF, ANEU, BMP, GFR ####[address] [address] WBC (Bld) [#/Vol] 6.50 10 3/mcL Normal 4.50-10.80 [facility] ([place]) Comment on above: Performed By: #### C BC, ADIFF, ANEU, BMP, GFR ####[address] [address] Erythrocyte distribution width (RBC) [Ratio] 13.8 % Normal 11.5-15.5 [facility] ([place] Comment on above: Performed By: #### C BC, ADIFF, ANEU #### [address] [address] #### BMP, GFR #### [address] [address] Hematocrit (Bld) [Volume fraction] 27.4 % Low 34.0-46.0 [facility] ([place] Comment on above: Performed By: #### C BC, ADIFF, ANEU #### [address] [address] #### BMP, GFR #### [address] [address] Hemoglobin (Bld) [Mass/Vol] 9.4 G/dL Low 12.0-16.0 [facility] ([place] Comment on above: Performed By: #### C BC, ADIFF, ANEU #### [address] [address] #### BMP, GFR #### [address] [address] MCH (RBC) [Entitic mass] 30.3 pg Normal 27.0-33.0 [facility] ([place] Comment on above: Performed By: #### C BC, ADIFF, ANEU #### [address] [address] #### BMP, GFR #### [address] [address] MCHC (RBC) [Mass/Vol] 34.4 G/dL Normal 32.0-36.0 [facility] ([place]) Comment on above: Performed By: #### C BC, ADIFF, ANEU #### [address] [address] #### BMP, GFR #### [address] [address] MCV (RBC) [Entitic vol] 88.2 fL Normal 80.0-99.0 [facility] ([place]) Comment on above: Performed By: #### C BC, ADIFF, ANEU #### [place] [address] #### BMP, GFR #### [address] [address] Platelet mean volume (Bld) [Entitic vol] 8.1 fL Normal 6.6-10.5 [facility] ([place]) Comment on above: Performed By: #### C BC, ADIFF, ANEU #### [place] [address] #### BMP, GFR #### [address] [address] Platelets (Bld) [#/Vol] 188 10 3/mcL Normal 150-450 [facility] ([place] Comment on above: Performed By: #### C BC, ADIFF, ANEU #### [place] [address] #### BMP, GFR #### [address] [address] RBC (Bld) [#/Vol] 3.11 10 6/mcL Low 4.10-5.30 [facility] ([place] Comment on above: Performed By: #### C BC, ADIFF, ANEU #### [place] [id number] #### BMP, GFR #### [address] [address] WBC (Bld) [#/Vol] 6.70 10 3/mcL Normal 4.50-10.80 [facility] ([place]) Comment on above: Performed By: #### C BC, ADIFF, ANEU #### [address] [address] #### BMP, GFR #### [address] [address] CMPon 06-07-2019 Albumin/Globulin [Mass ratio] 0.8 {ratio} Low 0.9-1.6 [facility] ([place] Comment on above: Performed By: #### C BC, ADIFF, ANEU, CMP, GFR ####[place] [address] ALP [Catalytic activity/Vol] 47 U/L Normal 38-126 [facility] ([place] Comment on above: Performed By: #### C BC, ADIFF, ANEU, CMP, GFR ####[place] [address] Bili Total 0.5 mg/dL Normal 0.2-1.2 [facility] ([place] Comment on above: Performed By: #### C BC, ADIFF, ANEU, CMP, GFR ####[place] [address] Creatinine [Mass/Vol] 0.66 mg/dL Normal 0.60-1.40 [facility] ([place]) Comment on above: Performed By: #### C BC, ADIFF, ANEU, CMP, GFR ####[place] [address] Globulin (S) [Mass/Vol] 2.7 G/dL Normal 1.5-3.8 [facility] ([place] Comment on above: Performed By: #### C BC, ADIFF, ANEU, CMP, GFR ####[address] [address] Protein [Mass/Vol] 4.8 G/dL Low 6.0-8.5 [facility] [place] Comment on above: Performed By: #### C BC, ADIFF, ANEU, CMP, GFR ####[address] [address] Urea nitrogen/Creatinine [Mass ratio] 4.5 ratio Low 10.0-22.0 [facility] ([place] Comment on above: Performed By: #### C BC, ADIFF, ANEU, CMP, GFR ####[address] [address] Albumin [Mass/Vol] 2.1 G/dL Low 3.2-4.8 [facility] [place] Comment on above: Performed By: #### C BC, ADIFF, ANEU, CMP, GFR ####[address] [address] ALT [Catalytic activity/Vol] 16 U/L Normal 12-55 [facility] ([place] Comment on above: Performed By: #### C BC, ADIFF, ANEU, CMP, GFR ####[address] [address] AST [Catalytic activity/Vol] 11 U/L Normal 8-34 [facility] ([place] Comment on above: Performed By: #### C BC, ADIFF, ANEU, CMP, GFR ####[address] [address] Calcium [Mass/Vol] 7.8 mg/dL Low 8.4-10.1 [facility] [place] Comment on above: Performed By: #### C BC, ADIFF, ANEU, CMP, GFR ####[address] [address] Chloride [Moles/Vol] 113 mmol/L High 98-110 [facility] ([place] Comment on above: Performed By: #### C BC, ADIFF, ANEU, CMP, GFR ####[address] [address] CO2 [Moles/Vol] 30 mmol/L Normal 22-32 [facility] ([place]) Comment on above: Performed By: #### C BC, ADIFF, ANEU, CMP, GFR ####[address] [address] Electrolyte Balance 5.0 mEq/L Normal 4.0-15.0 [facility] ([place] Comment on above: Performed By: #### C BC, ADIFF, ANEU, CMP, GFR ####[address] [address] Glucose [Mass/Vol] 124 mg/dL High 70-110 [facility] [place] Comment on above: Performed By: #### C BC, ADIFF, ANEU, CMP, GFR ####[place] [address] Potassium [Moles/Vol] 3.7 mmol/L Normal 3.5-5.0 [facility] ([place]) Comment on above: Performed By: #### C BC, ADIFF, ANEU, CMP, GFR ####[place] [address] Sodium [Moles/Vol] 148 mmol/L High 136-145 [facility] [place] Comment on above: Performed By: #### C BC, ADIFF, ANEU, CMP, GFR ####[place] [address] Urea nitrogen [Mass/Vol] 3.0 mg/dL Low 8.0-22.0 [facility] ([place] Comment on above: Performed By: #### C BC, ADIFF, ANEU, CMP, GFR ####[address] [address] HHon 06-07-2019 Hematocrit (Bld) [Volume fraction] 27.4 % Low 34.0-46.0 [facility] ([place] Comment on above: Performed By: #### H H ####[place] [address] Hemoglobin (Bld) [Mass/Vol] 9.6 G/dL Low 12.0-16.0 [facility] ([place] Comment on above: Performed By: #### H H ####[address] [address] XR CHEST 1 VIEWon 06-07-2019 XR CHEST [...] Sign Date: 06/07/2019 7:43:21 AM Normal [facility] ([place] .Auto Diffon 06-06-2019 Ammonia (P) [Mass/Vol] 0.70 10 3/mcL Normal 0.09-1.40 [facility] ([place] Comment on above: Performed By: #### C STEPHANIE KRISHNAMURTHY ANEU #### [place] [address] #### BMP, GFR #### [address] [address] Basophils (Bld) [#/Vol] 0.00 10 3/mcL Normal 0.00-0.27 [facility] ([place] Comment on above: Performed By: #### STEPHANIE JOHNSON ANEU #### [place] [address] #### BMP, GFR #### [address] [address] Basophils/100 WBC (Bld) 0.4 % Normal 0.0-2.5 [facility] ([place] Comment on above: Performed By: #### C STEPHANIE KRISHNAMURTHY ANEU #### [place] [address] #### BMP, GFR #### [address] [address] Eosinophils (Bld) [#/Vol] 0.10 10 3/mcL Normal 0.00-0.65 [facility] ([place] Comment on above: Performed By: #### STEPHANIE JOHNSON ANEU #### [place] [address] #### BMP, GFR #### [address] [address] Eosinophils/100 WBC (Bld) 0.8 % Normal 0.0-6.0 [facility] ([place] Comment on above: Performed By: #### C BC, ADIFF, ANEU #### [address] [address] #### BMP, GFR #### [address] [address] Lymphocytes (Bld) [#/Vol] 0.70 10 3/mcL Low 0.90-4.32 [facility] ([place] Comment on above: Performed By: #### C BC, ADIFF, ANEU #### [place] [address] #### BMP, GFR #### [address] [address] Lymphocytes/100 WBC (Bld) 9.2 % Low 20.0-40.0 [facility] ([place] Comment on above: Performed By: #### C BC, ADIFF, ANEU #### [place] [address] #### BMP, GFR #### [address] [address] Monocytes/100 WBC (Bld) 9.6 % Normal 2.0-13.0 [facility] ([place] Comment on above: Performed By: #### C BC, ADIFF, ANEU #### [place] [address] #### BMP, GFR #### [address] [address] Neutrophils/100 WBC (Bld) 80.0 % High 50.0-75.0 [facility] ([place] Comment on above: Performed By: #### C BC, ADIFF, ANEU #### [address] [address] #### BMP, GFR #### [address] [address] .GFRon 09-23-2019 GFR Non- >60 Normal [facility] ([place] Comment on above: Result Comment: GFR Population [...] Performed By: #### C BCSTEPHANIE, ANEU #### [address] [address] #### BMP, GFR #### [place] [address] GFR >60 Normal [facility] ([place] Comment on above: Result Comment: GFR Population [...] By: #### C BC, ADIFF, ANEU #### [address] [address] #### BMP, GFR #### [address] [address] .NEUABSon 06-06-2019 Neutrophils (Bld) [#/Vol] 6.20 10 3/mcL Normal 2.25-8.10 [facility] ([place] Comment on above: Performed By: #### C BC, ADIFF, ANEU #### [address] [address] #### BMP, GFR #### [address] [address] BMPon 06-06-2019 Calcium [Mass/Vol] 8.0 mg/dL Low 8.4-10.1 [facility] [place] Comment on above: Performed By: #### C BC, ADIFF, ANEU #### [address] [address] #### BMP, GFR #### [address] [address] Chloride [Moles/Vol] 104 mmol/L Normal 98-110 [facility] ([place] Comment on above: Performed By: #### C BC, ADIFF, ANEU #### [place] [address] #### BMP, GFR #### [address] [address] CO2 [Moles/Vol] 26 mmol/L Normal 22-32 [facility] ([place]) Comment on above: Performed By: #### C BC, ADIFF, ANEU #### [address] [address] #### BMP, GFR #### [address] [address] Creatinine [Mass/Vol] 0.66 mg/dL Normal 0.50-1.20 [facility] ([place]) Comment on above: Performed By: #### C BC, ADIFF, ANEU #### [place] [address] #### BMP, GFR #### [address] [address] Electrolyte Balance 10.0 mEq/L Normal 4.0-15.0 [facility] ([place] Comment on above: Performed By: #### C BC, ADIFF, ANEU #### [address] [place] [address] #### BMP, GFR #### [address] [address] Glucose [Mass/Vol] 104 mg/dL Normal 82-115 [facility] [place] Comment on above: Performed By: #### C BC, ADIFF, ANEU #### [address] [address] #### BMP, GFR #### [address] [address] Potassium [Moles/Vol] 3.2 mmol/L Low 3.5-5.0 [facility] ([place] Comment on above: Performed By: #### C BC, ADIFF, ANEU #### [address] [address] #### BMP, GFR #### [address] [address] Sodium [Moles/Vol] 140 mmol/L Normal 136-145 [facility] [place] Comment on above: Performed By: #### C BC, ADIFF, ANEU #### [address] [address] #### BMP, GFR #### [address] [address] Urea nitrogen [Mass/Vol] 10.0 mg/dL Normal 8.0-22.0 [facility] ([place] Comment on above: Performed By: #### C BC, ADIFF, ANEU #### [place] [address] #### BMP, GFR #### [address] [address] Urea nitrogen/Creatinine [Mass ratio] 15.2 ratio Normal 10.0-22.0 [facility] ([place] Comment on above: Performed By: #### C BC, ADIFF, ANEU #### [address] [address] #### BMP, GFR #### [address] [address] CBCon 06-06-2019 Erythrocyte distribution width (RBC) [Ratio] 13.6 % Normal 11.5-15.5 [facility] ([place] Comment on above: Performed By: #### C STEPHANIE KRISHNAMURTHY, ANEU #### [place] [address] #### BMP, GFR #### [address] [address] Hematocrit (Bld) [Volume fraction] 27.0 % Low 34.0-46.0 [facility] ([place]) Comment on above: Performed By: #### C STEPHANIE KRISHNAMURTHY, ANEU #### [address] [address] #### BMP, GFR #### [address] [address] Hemoglobin (Bld) [Mass/Vol] 9.2 G/dL Low 12.0-16.0 [facility] ([place]) Comment on above: Performed By: #### C STEPHANIE KRISHNAMURTHY, ANEU #### [place] [address] #### BMP, GFR #### [address] [address] MCH (RBC) [Entitic mass] 30.0 pg Normal 27.0-33.0 [facility] ([place]) Comment on above: Performed By: #### C STEPHANIE KRISHNAMURTHY, ANEU #### [place] [address] #### BMP, GFR #### [address] [address] MCHC (RBC) [Mass/Vol] 34.1 G/dL Normal 32.0-36.0 [facility] ([place]) Comment on above: Performed By: #### C STEPHANIE KRISHNAMURTHY, ANEU #### [place] [address] #### BMP, GFR #### [address] [address] MCV (RBC) [Entitic vol] 88.0 fL Normal 80.0-99.0 [facility] ([place]) Comment on above: Performed By: #### C BC, ADIFF, ANEU #### [address] [address] #### BMP, GFR #### [address] [address] Platelet mean volume (Bld) [Entitic vol] 8.2 fL Normal 6.6-10.5 [facility] ([place]) Comment on above: Performed By: #### C BC, ADIFF, ANEU #### [place] [address] #### BMP, GFR #### [address] [address] Platelets (Bld) [#/Vol] 155 10 3/mcL Normal 150-450 [facility] ([place]) Comment on above: Performed By: #### C BC, ADIFF, ANEU #### [place] [address] #### BMP, GFR #### [address] [address] RBC (Bld) [#/Vol] 3.07 10 6/mcL Low 4.10-5.30 [facility] ([place]) Comment on above: Performed By: #### C BC, ADIFF, ANEU #### [place] [address] #### BMP, GFR #### [address] [address] WBC (Bld) [#/Vol] 7.70 10 3/mcL Normal 4.50-10.80 [facility] ([place]) Comment on above: Performed By: #### C BC, ADIFF, ANEU #### [place] [address] #### BMP, GFR #### [address] [address] XR CHEST 1 VIEWon 06-06-2019 XR CHEST [...] Sign Date: 06/06/2019 6:40:06 AM Normal [facility] ([place]) .Auto Diffon 06-05-2019 Ammonia (P) [Mass/Vol] 1.20 10 3/mcL Normal 0.09-1.40 [facility] ([place]) Comment on above: Performed By: #### C STEPHANIE KRISHNAMURTHY, ANEU #### [place] [address] #### BMP, GFR #### [address] [address] Basophils (Bld) [#/Vol] 0.00 10 3/mcL Normal 0.00-0.27 [facility] ([place]) Comment on above: Performed By: #### C STEPHANIE KRISHNAMURTHY, ANEU #### [place] [address] #### BMP, GFR #### [address] [address] Basophils/100 WBC (Bld) 0.4 % Normal 0.0-2.5 [facility] ([place]) Comment on above: Performed By: #### C BCBRYANIFF, ANEU #### [place] [address] #### BMP, GFR #### [address] [address] Eosinophils (Bld) [#/Vol] 0.10 10 3/mcL Normal 0.00-0.65 [facility] ([place]) Comment on above: Performed By: #### C BCSTEPHANIE, ANEU #### [address] [address] #### BMP, GFR #### [address] [address] Eosinophils/100 WBC (Bld) 0.6 % Normal 0.0-6.0 [facility] ([place]) Comment on above: Performed By: #### C BC, ADIFF, ANEU #### [address] [address] #### BMP, GFR #### [address] [address] Lymphocytes (Bld) [#/Vol] 1.10 10 3/mcL Normal 0.90-4.32 [facility] ([place]) Comment on above: Performed By: #### C BC, ADIFF, ANEU #### [address] [address] #### BMP, GFR #### [address] [address] Lymphocytes/100 WBC (Bld) 9.5 % Low 20.0-40.0 [facility] ([place]) Comment on above: Performed By: #### C BC, ADIFF, ANEU #### [address] [address] #### BMP, GFR #### [address] [address] Monocytes/100 WBC (Bld) 9.9 % Normal 2.0-13.0 [facility] ([place]) Comment on above: Performed By: #### C BC, ADIFF, ANEU #### [address] [address] #### BMP, GFR #### [address] [address] Neutrophils/100 WBC (Bld) 79.6 % High 50.0-75.0 [facility] ([place]) Comment on above: Performed By: #### C BC, ADIFF, ANEU #### [address] [address] #### BMP, GFR #### [address] [address] .GFRon 06-05-2019 GFR >60 Normal [facility] ([place]) Comment on above: Result Comment: GFR Population [...] Performed By: #### C BCSTEPHANIE, ANEU #### [address] [address] #### BMP, GFR #### [address] [address] GFR Non- >60 Normal [facility] ([place]) Comment on above: Result Comment: GFR Population [...] By: #### C BC, ADIFF, ANEU #### [address] [address] #### BMP, GFR #### [address] [address] .Morphon 06-05-2019 Platelets (Bld) [#/Vol] Slt Decreased Normal [facility] ([place]) Comment on above: Performed By: #### C BC, ADIFF, ANEU #### [place] [address] #### BMP, GFR #### [address] [address] RBC morphology finding Nom (Bld) Normal Normal [facility] ([place]) Comment on above: Performed By: #### C BC, ADIFF, ANEU #### [place] [address] #### BMP, GFR #### [place] [address] .NEUABSon 06-05-2019 Neutrophils (Bld) [#/Vol] 9.30 10 3/mcL High 2.25-8.10 [facility] ([place]) Comment on above: Performed By: #### C BCBRYANIFF, ANEU #### [place] [address] #### BMP, GFR #### [address] [address] BMPon 06-05-2019 Calcium [Mass/Vol] 8.2 mg/dL Low 8.4-10.1 [facility] ([place]) Comment on above: Performed By: #### C BCBRYANIFF, ANEU #### [place] [address] #### BMP, GFR #### [place] [address] CO2 [Moles/Vol] 23 mmol/L Normal 22-32 [facility] ([place]) Comment on above: Performed By: #### C BC, ADIFF, ANEU #### [place] [address] #### BMP, GFR #### [place] [id number] Creatinine [Mass/Vol] 0.65 mg/dL Normal 0.50-1.20 [facility] ([place]) Comment on above: Performed By: #### C BC, ADIFF, ANEU #### [address] [address] #### BMP, GFR #### [address] [address] Electrolyte Balance 11.0 mEq/L Normal 4.0-15.0 [facility] ([place]) Comment on above: Performed By: #### C BC, ADIFF, ANEU #### [address] [address] #### BMP, GFR #### [address] [address] Glucose [Mass/Vol] 114 mg/dL Normal 82-115 [facility] [place]) Comment on above: Performed By: #### C BC, ADIFF, ANEU #### [address] [address] #### BMP, GFR #### [address] [address] Potassium [Moles/Vol] 4.2 mmol/L Normal 3.5-5.0 [facility] ([place]) Comment on above: Performed By: #### C BC, ADIFF, ANEU #### [address] [address] #### BMP, GFR #### [address] [address] Urea nitrogen [Mass/Vol] 9.0 mg/dL Normal 8.0-22.0 [facility] ([place]) Comment on above: Performed By: #### C BC, ADIFF, ANEU #### [address] [address] #### BMP, GFR #### [address] [address] Urea nitrogen/Creatinine [Mass ratio] 13.8 ratio Normal 10.0-22.0 [facility] ([place]) Comment on above: Performed By: #### C BC, ADIFF, ANEU #### [address] [address] #### BMP, GFR #### [address] [address] Chloride [Moles/Vol] 107 mmol/L Normal 98-110 [facility] ([place]) Comment on above: Performed By: #### C BC, ADIFF, ANEU #### [address] [address] #### BMP, GFR #### [address] [address] Sodium [Moles/Vol] 141 mmol/L Normal 136-145 [facility] [place]) Comment on above: Performed By: #### C BC, ADIFF, ANEU #### [address] [address] #### BMP, GFR #### [address] [address] CBCon 06-05-2019 Platelet mean volume (Bld) [Entitic vol] 9.1 fL Normal 6.6-10.5 [facility] ([place]) Comment on above: Performed By: #### C BRYAN KRISHNAMURTHYIFF, ANEU #### [address] [address] #### BMP, GFR #### [address] [address] Platelets (Bld) [#/Vol] 143 10 3/mcL Low 150-450 [facility] ([place]) Comment on above: Performed By: #### STEPHANIE JOHNSON, ANEU #### [address] [address] #### BMP, GFR #### [address] [address] Erythrocyte distribution width (RBC) [Ratio] 14.0 % Normal 11.5-15.5 [facility] ([place]) Comment on above: Performed By: #### Lio KRISHNAMURTHY, ADIFF, ANEU #### [address] [address] #### BMP, GFR #### [address] [address] Hematocrit (Bld) [Volume fraction] 30.7 % Low 34.0-46.0 [facility] ([place]) Comment on above: Performed By: #### C BC, ADIFF, ANEU #### [place] [address] #### BMP, GFR #### [address] [address] Hemoglobin (Bld) [Mass/Vol] 10.7 G/dL Low 12.0-16.0 [facility] ([place]) Comment on above: Performed By: #### C BC, ADIFF, ANEU #### [place] [address] #### BMP, GFR #### [place] [address] MCH (RBC) [Entitic mass] 30.4 pg Normal 27.0-33.0 [facility] ([place]) Comment on above: Performed By: #### C BC, ADIFF, ANEU #### [place] [address] #### BMP, GFR #### [address] [address] MCHC (RBC) [Mass/Vol] 34.8 G/dL Normal 32.0-36.0 [facility] ([place]) Comment on above: Performed By: #### C BC, ADIFF, ANEU #### [place] [address] #### BMP, GFR #### [place] [address] MCV (RBC) [Entitic vol] 87.6 fL Normal 80.0-99.0 [facility] ([place]) Comment on above: Performed By: #### C BC, ADIFF, ANEU #### [place] [address] #### BMP, GFR #### [address] [address] RBC (Bld) [#/Vol] 3.50 10 6/mcL Low 4.10-5.30 [facility] ([place]) Comment on above: Performed By: #### C BC, ADIFF, ANEU #### [place] [address] [place], [place] [address] #### BMP, GFR #### [address] [address] WBC (Bld) [#/Vol] 11.60 10 3/mcL High 4.50-10.80 [facility] ([place]) Comment on above: Performed By: #### C BC, ADIFF, ANEU #### [place] [address] [place], [place] [address] #### BMP, GFR #### [place] [id number] [address] [place] [address] XR CHEST 1 VIEWon 06-05-2019 XR CHEST [...] Sign Date: 06/05/2019 7:45:20 AM Normal [facility] ([place]) XR CHEST 1 VIEW ORIGINAL PORTABLE UPRIGHT [...] Sign Date: 06/04/2019 11:53:30 PM Normal [facility] ([place]) .Auto Diffon 06-04-2019 Ammonia (P) [Mass/Vol] 0.90 10 3/mcL Normal 0.09-1.40 [facility] ([place]) Comment on above: Performed By: #### C BC, ADIFF, ANEU #### [place] [address] #### BMP, GFR #### [address] [address] Basophils (Bld) [#/Vol] 0.00 10 3/mcL Normal 0.00-0.27 [facility] ([place]) Comment on above: Performed By: #### C BC, ADIFF, ANEU #### [place] [address] #### BMP, GFR #### [address] [address] Basophils/100 WBC (Bld) 0.3 % Normal 0.0-2.5 [facility] ([place]) Comment on above: Performed By: #### C BC, ADIFF, ANEU #### [place] [address] #### BMP, GFR #### [address] [address] Eosinophils (Bld) [#/Vol] 0.00 10 3/mcL Normal 0.00-0.65 [facility] ([place]) Comment on above: Performed By: #### C BC, ADIFF, ANEU #### [place] [address] #### BMP, GFR #### [address] [address] Eosinophils/100 WBC (Bld) 0.1 % Normal 0.0-6.0 [facility] ([place]) Comment on above: Performed By: #### C BC, ADIFF, ANEU #### [address] [address] #### BMP, GFR #### [address] [address] Lymphocytes (Bld) [#/Vol] 0.90 10 3/mcL Normal 0.90-4.32 [facility] ([place]) Comment on above: Performed By: #### C BC, ADIFF, ANEU #### [address] [address] #### BMP, GFR #### [address] [address] Lymphocytes/100 WBC (Bld) 10.3 % Low 20.0-40.0 [facility] ([place]) Comment on above: Performed By: #### C BC, ADIFF, ANEU #### [place] [address] #### BMP, GFR #### [address] [address] Monocytes/100 WBC (Bld) 9.5 % Normal 2.0-13.0 [facility] ([place]) Comment on above: Performed By: #### C BC, ADIFF, ANEU #### [address] [address] #### BMP, GFR #### [address] [address] Neutrophils/100 WBC (Bld) 79.8 % High 50.0-75.0 [facility] ([place]) Comment on above: Performed By: #### C BC, ADIFF, ANEU #### [address] [address] #### BMP, GFR #### [address] [address] .GFRon 06-04-2019 GFR >60 Normal [facility] ([place]) Comment on above: Result Comment: GFR Population [...] By: #### C BC, ADIFF, ANEU #### [address] [address] #### BMP, GFR #### [address] [address] GFR Non- >60 Normal [facility] ([place]) Comment on above: Result Comment: GFR Population [...] By: #### C BC, ADIFF, ANEU #### [address] [address] #### BMP, GFR #### [address] [address] .NEUABSon 06-04-2019 Neutrophils (Bld) [#/Vol] 7.20 10 3/mcL Normal 2.25-8.10 [facility] ([place]) Comment on above: Performed By: #### C BC, ADIFF, ANEU #### [address] [address] #### BMP, GFR #### [address] [address] BMPon 06-04-2019 Calcium [Mass/Vol] 8.8 mg/dL Normal 8.4-10.1 [facility] ([place]) Comment on above: Performed By: #### C BC, ADIFF, ANEU #### [address] [address] #### BMP, GFR #### [address] [address] Chloride [Moles/Vol] 109 mmol/L Normal 98-110 [facility] ([place]) Comment on above: Performed By: #### C BC, ADIFF, ANEU #### [place] [address] #### BMP, GFR #### [place] [address] CO2 [Moles/Vol] 25 mmol/L Normal 22-32 [facility] ([place]) Comment on above: Performed By: #### C BC, ADIFF, ANEU #### [place] [address] #### BMP, GFR #### [place] [address] Creatinine [Mass/Vol] 0.82 mg/dL Normal 0.50-1.20 [facility] ([place]) Comment on above: Performed By: #### C BC, ADIFF, ANEU #### [place] [address] #### BMP, GFR #### [address] [address] Electrolyte Balance 8.0 mEq/L Normal 4.0-15.0 [facility] ([place]) Comment on above: Performed By: #### C BC, ADIFF, ANEU #### [place] [address] #### BMP, GFR #### [place] [address] Glucose [Mass/Vol] 132 mg/dL High 82-115 [facility] ([place]) Comment on above: Performed By: #### C BC, ADIFF, ANEU #### [address] [address] #### BMP, GFR #### [address] [address] Potassium [Moles/Vol] 4.3 mmol/L Normal 3.5-5.0 [facility] ([place]) Comment on above: Performed By: #### C BC, ADIFF, ANEU #### [address] [address] #### BMP, GFR #### [address] [address] Sodium [Moles/Vol] 142 mmol/L Normal 136-145 [facility] [place]) Comment on above: Performed By: #### C BC, ADIFF, ANEU #### [address] [address] #### BMP, GFR #### [address] [address] Urea nitrogen [Mass/Vol] 12.0 mg/dL Normal 8.0-22.0 [facility] ([place]) Comment on above: Performed By: #### C BC, ADIFF, ANEU #### [address] [address] #### BMP, GFR #### [address] [address] Urea nitrogen/Creatinine [Mass ratio] 14.6 ratio Normal 10.0-22.0 [facility] ([place]) Comment on above: Performed By: #### C BC, ADIFF, ANEU #### [address] [address] #### BMP, GFR #### [address] [address] CBCon 06-04-2019 Erythrocyte distribution width (RBC) [Ratio] 14.0 % Normal 11.5-15.5 [facility] ([place]) Comment on above: Performed By: #### C BC, ADIFF, ANEU #### [address] [address] #### BMP, GFR #### [address] [address] Hematocrit (Bld) [Volume fraction] 38.5 % Normal 34.0-46.0 [facility] ([place]) Comment on above: Performed By: #### C BC, ADIFF, ANEU #### [place] [address] #### BMP, GFR #### [address] [address] Hemoglobin (Bld) [Mass/Vol] 13.0 G/dL Normal 12.0-16.0 [facility] ([place]) Comment on above: Performed By: #### C BC, ADIFF, ANEU #### [place] [address] #### BMP, GFR #### [address] [address] MCH (RBC) [Entitic mass] 30.1 pg Normal 27.0-33.0 [facility] ([place]) Comment on above: Performed By: #### C RAGHU, ADIFF, ANEU #### [place] [address] #### BMP, GFR #### [address] [address] MCHC (RBC) [Mass/Vol] 33.7 G/dL Normal 32.0-36.0 [facility] ([place]) Comment on above: Performed By: #### C BC, ADIFF, ANEU #### [address] [address] #### BMP, GFR #### [address] [address] MCV (RBC) [Entitic vol] 89.5 fL Normal 80.0-99.0 [facility] ([place]) Comment on above: Performed By: #### C BC, ADIFF, ANEU #### [place] [address] #### BMP, GFR #### [address] [address] Platelet mean volume (Bld) [Entitic vol] 7.6 fL Normal 6.6-10.5 [facility] ([place]) Comment on above: Performed By: #### C BC, ADIFF, ANEU #### [place] [address] #### BMP, GFR #### [address] [address] Platelets (Bld) [#/Vol] 197 10 3/mcL Normal 150-450 [facility] ([place]) Comment on above: Performed By: #### C BC, ADIFF, ANEU #### [place] [address] #### BMP, GFR #### [address] [address] RBC (Bld) [#/Vol] 4.31 10 6/mcL Normal 4.10-5.30 [facility] ([place]) Comment on above: Performed By: #### C BC, ADIFF, ANEU #### [place] [address] #### BMP, GFR #### [address] [address] WBC (Bld) [#/Vol] 9.00 10 3/mcL Normal 4.50-10.80 [facility] ([place]) Comment on above: Performed By: #### C BC, ADIFF, ANEU #### [place] [address] #### BMP, GFR #### [address] [address] [address] ANKLE W/O CONTRAST RIGHTo n 06-04-2019 [...] Sign Date: 06/04/2019 12:03:00 AM Normal [facility] ([place]) CT WRIST W/O CONTRAST RIGHTo n 06-04-2019 [...] Sign Date: 06/04/2019 12:04:55 AM Normal [facility] ([place]) PROon 06-04-2019 INR Coag (PPP) [Relative time] 1.0 {INR} Normal [facility] ([place]) Comment on above: Result Comment: The [employer] (CHEST, 1992, 102:312S-25S) recommended therapeutic range for oral anticoagulant therapy is: LOW RISK: Prophylaxis of venous thrombosis INR: 2.0-3.0 Treatment of pulmonary embolism 2.0-3.0 Prevention of systemic embolism 2.0-3.0 HIGH RISK: Mechanical prosthetic valves 2.5-3.5 Performed By: #### C STEPHANIE KRISHNAMURTHY ANEU #### [place] [address] #### BMP, GFR #### [place] [address] PT Coag (PPP) [Time] 12.0 s Normal 9.0-14.6 [facility] ([place]) Comment on above: Result Comment: Effe ctive 03/28/08, Protime results may be affected by some antibiotics (i.e. Ciprofloxacin, Azithromycin, Bactrim) which may potentiate the action of oral anticoagulants, with further increases in Protime/INR. Performed By: #### C STEPHANIE KRISHNAMURTHY ANEU #### [place] [address] #### BMP, GFR #### [place] [address] TABOon 06-04-2019 ABO/Rh Interp Negative [facility] ([place]) Comment on above: Performed By: #### C STEPHANIE KRISHNAMURTHY ANEU #### [place] [address] #### BMP, GFR #### [place] [address] TABSon 06-04-2019 Antibody Screen Tango Negative Normal [facility] ([place]) Comment on above: Performed By: #### C BC, ADIFF, ANEU #### [place] [address] [place], [place] [address] #### BMP, GFR #### [place] [id number] [place] [address] XR CHEST 1 VIEWon 06-04-2019 XR CHEST [...] AM Sign Date: 06/04/2019 5:25:45 AM Normal [facility] ([place]) XR FLUORO < 1HR TECH TIMEon 06-04-2019 XR FLUORO < 1HR TECH TIME ORIGINAL Intraoperative fluoroscopy and image intensifier views of the right ankle Clinical Statement: rt ankle fx, internal fixation Comparison: Radiographs 06/03/2019 FINDINGS: Technical Details: Tech Time - < 1hr\X0D0A\1120-2p total for both ; C-Arm # - 7; Total Dose - .85mGy; Images - 6; Health Data Administrator - nmk; History - rt ankle fx, [...] PM Sign Date: 06/04/2019 3:30:03 PM Normal [facility] ([place]) XR FLUORO 1-2 HRS TECH TIMEo n 06-04-2019 XR FLUORO 1-2 HRS TECH TIME ORIGINAL Intraoperative fluoroscopy and image intensifier views of the right wrist Clinical Statement: rt wrist fx, internal fixation Comparison: 06/03/2019 FINDINGS: Technical Details: Tech Time - 1120-2p total for both exams; C-Arm # - 7; Total Dose - 1.71mGy; Images - 5; Health Data Administrator - nmk; History - rt wrist fx; [...] Sign Date: 06/04/2019 3:36:44 PM Normal [facility] ([place]) XR HAND MINIMUM 3 VIEWS LEFT on [...] Sign Date: 06/04/2019 9:53:38 AM Normal [facility] ([place]) .Auto Diffon 06-03-2019 Ammonia (P) [Mass/Vol] 0.60 10 3/mcL Normal 0.15-1.00 [facility] ([place]) Comment on above: Performed By: #### C BC, ADIFF, ANEU #### [facility] [address] [place], [place] [address] #### BMP, GFR #### [address] [address] Basophils (Bld) [#/Vol] 0.00 10 3/mcL Normal 0.00-0.19 [facility] ([place]) Comment on above: Performed By: #### C BC, ADIFF, ANEU #### [address] [address] #### BMP, GFR #### [address] [address] Basophils/100 WBC (Bld) 0.4 % Normal 0.0-2.5 [facility] ([place]) Comment on above: Performed By: #### C BC, ADIFF, ANEU #### [address] [address] #### BMP, GFR #### [address] [address] Eosinophils (Bld) [#/Vol] 0.10 10 3/mcL Normal 0.00-0.40 [facility] ([place]) Comment on above: Performed By: #### C BC, ADIFF, ANEU #### [place] [address] #### BMP, GFR #### [address] [address] Eosinophils/100 WBC (Bld) 1.0 % Normal 0.0-7.0 [facility] ([place]) Comment on above: Performed By: #### C BC, ADIFF, ANEU #### [address] [address] #### BMP, GFR #### [address] [address] Lymphocytes (Bld) [#/Vol] 1.20 10 3/mcL Normal 0.77-3.85 [facility] ([place]) Comment on above: Performed By: #### C BC, ADIFF, ANEU #### [address] [address] #### BMP, GFR #### [address] [address] Lymphocytes/100 WBC (Bld) 12.6 % Normal 10.0-50.0 [facility] ([place]) Comment on above: Performed By: #### C BC, ADIFF, ANEU #### [address] [place] [address] #### BMP, GFR #### [address] [address] Monocytes/100 WBC (Bld) 6.3 % Normal 1.7-13.0 [facility] ([place]) Comment on above: Performed By: #### C BC, ADIFF, ANEU #### [address] [address] #### BMP, GFR #### [facility] [address] [place] [address] Neutrophils/100 WBC (Bld) 79.7 % Normal 37.0-80.0 [facility] ([place]) Comment on above: Performed By: #### C BC, ADIFF, ANEU #### [address] [address] #### BMP, GFR #### [address] [address] .GFRon 06-03-2019 GFR 78 ml/min/1.73sqm Normal [facility] ([place]) Comment on above: Result Comment: GFR [...] By: #### C BC, ADIFF, ANEU #### [address] [address] #### BMP, GFR #### [address] [address] GFR Non- 64 ml/min/1.73sqm Normal [facility] ([place]) Comment on above: Result Comment: GFR [...] Performed By: #### C BCBRYANIFF, ANEU #### [place] [address] #### BMP, GFR #### [address] [address] .NEUABSon 06-03-2019 Neutrophils (Bld) [#/Vol] 7.90 10 3/mcL High 2.85-6.16 [facility] ([place]) Comment on above: Performed By: #### C STEPHANIE KRISHNAMURTHY, ANEU #### [place] [id number] #### BMP, GFR #### [address] [address] BMPon 06-03-2019 Calcium [Mass/Vol] 9.2 mg/dL Normal 8.4-10.2 [facility] [place] Comment on above: Performed By: #### STEPHANIE JOHNSON, ANEU #### [address] [address] #### BMP, GFR #### [address] [address] Chloride [Moles/Vol] 104 mmol/L Normal 98-107 [facility] ([place]) Comment on above: Performed By: #### Lio BC ADIFF, ANEU #### [address] [address] #### BMP, GFR #### [address] [address] CO2 [Moles/Vol] 30 mmol/L Normal 23-31 [facility] ([place]) Comment on above: Performed By: #### C BC, ADIFF, ANEU #### [address] [address] #### BMP, GFR #### [address] [address] Creatinine [Mass/Vol] 0.85 mg/dL Normal 0.55-1.02 [facility] ([place]) Comment on above: Performed By: #### C BC, ADIFF, ANEU #### [address] [address] #### BMP, GFR #### [address] [address] Electrolyte Balance 9.0 mEq/L Normal [facility] ([place] Comment on above: Performed By: #### C BC, ADIFF, ANEU #### [address] [address] #### BMP, GFR #### [address] [address] Glucose [Mass/Vol] 135 mg/dL High 83-110 [facility] [place] Comment on above: Performed By: #### C BC, ADIFF, ANEU #### [address] [address] #### BMP, GFR #### [address] [address] Potassium [Moles/Vol] 4.1 mmol/L Normal 3.5-5.1 [facility] ([place]) Comment on above: Performed By: #### C BC, ADIFF, ANEU #### [address] [address] #### BMP, GFR #### [address] [address] Sodium [Moles/Vol] 143 mmol/L Normal 136-145 [facility] [place] Comment on above: Performed By: #### C BC, ADIFF, ANEU #### [address] [address] #### BMP, GFR #### [address] [address] Urea nitrogen [Mass/Vol] 14 mg/dL Normal 7-18 [facility] ([place]) Comment on above: Performed By: #### C BC, ADIFF, ANEU #### [address] [address] #### BMP, GFR #### [address] [address] Urea nitrogen/Creatinine [Mass ratio] 16 ratio Normal 7-27 [facility] ([place]) Comment on above: Performed By: #### C BC, ADIFF, ANEU #### [address] [address] #### BMP, GFR #### [address] [address] CBCon 06-03-2019 Erythrocyte distribution width (RBC) [Ratio] 14.3 % Normal 11.5-14.5 [facility] ([place]) Comment on above: Performed By: #### C BC, ADIFF, ANEU #### [address] [address] #### BMP, GFR #### [address] [address] Hematocrit (Bld) [Volume fraction] 38.5 % Normal 37.0-47.0 [facility] ([place] Comment on above: Performed By: #### C BC, ADIFF, ANEU #### [address] [address] #### BMP, GFR #### [address] [address] Hemoglobin (Bld) [Mass/Vol] 13.0 G/dL Normal 12.0-16.0 [facility] ([place] Comment on above: Performed By: #### C BC, ADIFF, ANEU #### [address] [address] #### BMP, GFR #### [address] [address] MCH (RBC) [Entitic mass] 30.0 pg Normal 27.0-31.2 [facility] ([place] Comment on above: Performed By: #### C STEPHANIE KRISHNAMURTHY, ANEU #### [address] [address] #### BMP, GFR #### [address] [address] MCHC (RBC) [Mass/Vol] 33.8 G/dL Normal 33.0-37.0 [facility] ([place]) Comment on above: Performed By: #### C STEPHANIE KRISHNAMURTHY, ANEU #### [place] [address] #### BMP, GFR #### [place] [address] MCV (RBC) [Entitic vol] 88.6 fL Normal 80.0-94.0 [facility] ([place]) Comment on above: Performed By: #### C STEPHANIE KRISHNAMURTHY, ANEU #### [place] [address] #### BMP, GFR #### [address] [address] Platelet mean volume (Bld) [Entitic vol] 8.1 fL Normal 7.4-10.4 [facility] ([place]) Comment on above: Performed By: #### C STEPHANIE KRISHNAMURTHY, ANEU #### [place] [address] #### BMP, GFR #### [address] [address] Platelets (Bld) [#/Vol] 221 10 3/mcL Normal 130-400 [facility] ([place]) Comment on above: Performed By: #### STEPHANIE JOHNSON, ANEU #### [place] [address] #### BMP, GFR #### [address] [address] RBC (Bld) [#/Vol] 4.35 10 6/mcL Normal 4.20-5.40 [facility] ([place]) Comment on above: Performed By: #### C BC, ADIFF, ANEU #### [place] [address] [place], [place] [address] #### BMP, GFR #### [place] [id number] [place] [address] WBC (Bld) [#/Vol] 9.90 10 3/mcL Normal 4.60-10.80 [facility] ([place]) Comment on above: Performed By: #### C BC, ADIFF, ANEU #### [place] [address] [place], [place] [address] #### BMP, GFR #### [place] [id number] [place] [address] ABD/PELVIS W/ IV CONTRAST ONLYon 06-03-2019 [...] Sign Date: 06/03/2019 4:57:41 PM Normal [facility] ([place]) CT HEAD OR BRAIN W/O CONTRAS Ton [...] Sign Date: 06/03/2019 4:10:32 PM Normal [facility] ([place]) CT SPINE CERVICAL W/O CONTRA STon 06-03-2019 [...] Sign Date: 06/03/2019 4:35:12 PM Normal [facility] ([place]) CT THORAX W/ CONTRASTon 05-16 CT THORAX [...] Sign Date: 06/03/2019 4:53:52 PM Normal [facility] ([place]) XR ANKLE AND FOOT 6 VIEWS [facility] 06-03-2019 XR ANKLE AND FOOT 6 [...] Sign Date: 06/03/2019 3:45:45 PM Normal [facility] ([place]) XR ANKLE MINIMUM 3 VIEWS RIG HTon [...] Sign Date: 06/03/2019 7:11:45 PM Normal [facility] ([place]) XR CHEST 1 VIEWon 06-03-2019 XR CHEST [...] Sign Date: 06/03/2019 6:20:15 PM Normal [facility] ([place]) XR CHEST 1 VIEW ORIGINAL XR CHEST [...] Sign Date: 06/03/2019 3:47:37 PM Normal [facility] ([place]) XR FOREARM 2 VIEWS RIGHTon 0 06-03-2019 [...] Sign Date: 06/03/2019 7:13:59 PM Normal [facility] ([place]) XR KNEE THREE VIEWS RIGHTon 06-03-2019 XR [...] Sign Date: 06/03/2019 7:12:24 PM Normal [facility] ([place]) XR PELVIS 1 OR 2 VIEWSon XR [...] Sign Date: 06/03/2019 3:58:51 PM Normal [facility] ([place]) XR WRIST TWO VIEWS RIGHTon 0 06-03-2019 [...] Sign Date: 06/03/2019 3:56:05 PM Normal [facility] ([place]) C-REACTIVE PROTEIN (75617)Or dered By: Manager Corporate Responsibility on 10-15-2017 CRP mass conc 1.0 mg/L Normal 0.0-4.9 [facility] Internal Medicine Work Phone: Comment on above: PATIENT NOT FASTINGP ERFORMED BY: CB [facility] Ljjkdo7239 [address] [facility] [id number] CBC (AUTO) ([id number])Ordered By : Manager Corporate Responsibility on 10-15-2017 Erythrocyte distribution width Ratio (RBC) 13.8 % Normal 12.3-15.4 [facility] Internal Medicine Work Phone: Comment on above: PATIENT NOT FASTINGP ERFORMED BY: CB [facility] Tbpqmt5742 [address] [facility] [id number] Hematocrit Volume Fraction (Bld) 40.2 % Normal 34.0-46.6 [facility] Internal Medicine Work Phone: Comment on above: PATIENT NOT FASTINGP ERFORMED BY: CB [facility] Zrotwd6583 [address] [facility] [id number] Hemoglobin mass conc (Bld) 13.4 g/dL Normal 11.1-15.9 [facility] Internal Medicine Work Phone: Comment on above: PATIENT NOT FASTINGP ERFORMED BY: CB [facility] Omjvkw3124 [address] [facility] [id number] MCH Entitic mass (RBC) 29.8 pg Normal 26.6-33.0 [facility] Internal Medicine Work Phone: Comment on above: PATIENT NOT FASTINGP ERFORMED BY: CB [facility] Btnaoq5354 [address] [facility] [id number] MCHC mass conc (RBC) 33.3 g/dL Normal 31.5-35.7 [facility] Internal Medicine Work Phone: Comment on above: PATIENT NOT FASTINGP ERFORMED BY: CB [facility] Mbfnmi6112 [address] [facility] [id number] MCV Entitic volume (RBC) 90 fL Normal 79-97 [facility] Work Phone: Comment on above: PATIENT NOT FASTINGP ERFORMED BY: ORTIZ [facility] Mylbtf9545 [address] RoadDublin [place] [id number] Platelets #/vol (Bld) 211 {x10E3/uL} Normal 150-379 [facility] Work Phone: Comment on above: PATIENT NOT FASTINGP ERFORMED BY: ORTIZ [facility] Xvouku8947 [address] RoadDublin [place] [id number] RBC #/vol (Bld) 4.49 {x10E6/uL} Normal 3.77-5.28 Comp [facility] Internal [facility] Work Phone: Comment on above: PATIENT NOT FASTINGP ERFORMED BY: ORTIZ LabKellieaustyn Lilzlj4294 [address] RoadDublin [place] [id number] WBC #/vol (Bld) 4.9 {x10E3/uL} Normal 3.4-10.8 Compr [facility] Internal Medicine Work Phone: Comment on above: PATIENT NOT FASTINGP ERFORMED BY: ORTIZ LabCoaustyn CroweRamwqk7277 [address] Roadblin [place] [id number] METABOLIC PANEL, COMPREHENSI VE ([id number])Ordered By: Manager Corporate Responsibility on 10-15-2017 Albumin mass conc 3.9 g/dL Normal 3.5-4.8 Compreh [facility] Internal Medicine Work Phone: Comment on above: PATIENT NOT FASTINGP ERFORMED BY: ORTIZ [facility] Hiyxxc2224 [address] [facility] [place] [id number] Albumin/Globulin mass ratio 1.6 {ratio} Normal 1.2-2.2 [facility] Work Phone: Comment on above: PATIENT NOT FASTINGP ERFORMED BY: ORTIZ [facility] Xibuxf2216 [address] RoadDublin [place] [id number] ALP enzyme act/vol 78 [iU]/L Normal 39-117 Compre [facility] Internal Medicine Work Phone: Comment on above: PATIENT NOT FASTINGP ERFORMED BY: ORTIZ [facility] Kxdnvq7443 [address] RoadDublin [place] [id number] ALT enzyme act/vol 18 [iU]/L Normal 0-32 Compre [facility] Internal Medicine Work Phone: Comment on above: PATIENT NOT FASTINGP ERFORMED BY: CB [facility] Gnfila8420 [address] RoadDublin [place] [id number] AST enzyme act/vol 25 [iU]/L Normal 0-40 Compre [facility] Internal Medicine Work Phone: Comment on above: PATIENT NOT FASTINGP ERFORMED BY: CB [facility] Qoyydg7087 [address] RoadLif[facility] [place]ain [place] [id number] Bilirubin mass conc 0.4 mg/dL Normal 0.0-1.2 Compr ensive Internal Medicine Work Phone: Comment on above: PATIENT NOT FASTINGP ERFORMED BY: CB [facility] Lbfapv9457 [address] [facility]Nov[facility] [id number] Calcium mass conc 9.5 mg/dL Normal 8.7-10.3 Compre[facility] Internal [facility] Work Phone: Comment on above: PATIENT NOT FASTINGP ERFORMED BY: CB [facility] Ptnofs5163 [address] [facility] [id number] Chloride molar conc 102 mmol/L Normal 96-106 Compr ensive Internal Medicine Work Phone: Comment on above: PATIENT NOT FASTINGP ERFORMED BY: CB [facility] Vifpvk3672 [address] [facility] [id number] CO2 molar conc 27 mmol/L Normal 18-29 Comprehens trupti Internal Medicine Work Phone: Comment on above: PATIENT NOT FASTINGP ERFORMED BY: CB [facility] Avxura0364 [address] RoadLifecare Hospitals [facility] [place]ain [place] [id number] Creatinine mass conc 0.88 mg/dL Normal 0.57-1.00 Comp [facility] Internal [facility] Work Phone: Comment on above: PATIENT NOT FASTINGP ERFORMED BY: CB [facility] Sercjk1402 [address] RoadLifecare Hospitals [facility] [place]ain [place] [id number] GFR/1.73 sq M predicted among blacks CKD-EPI vol rate/area (S/P/Bld) 73 mL/min/1.73 Normal [facility] Work Phone: Comment on above: PATIENT NOT FASTINGP ERFORMED BY: CB [facility] Mhpnja8391 [address] RoadDublin [place] [id number] GFR/1.73 sq M predicted among non-blacks CKD-EPI vol rate/area (S/P/Bld) 63 mL/min/1.73 Normal Comprehensiv e Internal Medicine Work Phone: Comment on above: PATIENT NOT FASTINGP ERFORMED BY: CB [facility] Vcqfhz3311 [address] Roadblin [place] [id number] Globulin mass conc (S) 2.4 g/dL Normal 1.5-4.5 Co mprehensive Internal Medicine Work Phone: Comment on above: PATIENT NOT FASTINGP ERFORMED BY: CB [facility] Gybbuv7360 [address] RoadDublin [place] [id number] Glucose mass conc 87 mg/dL Normal 65-99 Compreh ensive Internal Medicine Work Phone: Comment on above: PATIENT NOT FASTINGP ERFORMED BY: CB [facility] Mqlvrz9102 [address] RoadDublin [place] [id number] Potassium molar conc 4.8 mmol/L Normal 3.5-5.2 Comp rehensive Internal Medicine Work Phone: Comment on above: PATIENT NOT FASTINGP ERFORMED BY: CB [facility] Yrwnla4151 [address] RoadDublin [place] [id number] Protein mass conc 6.3 g/dL Normal 6.0-8.5 Compreh ensive Internal Medicine Work Phone: Comment on above: PATIENT NOT FASTINGP ERFORMED BY: CB [facility] Qtiejw2648 [address] RoadDublin [place] [id number] Sodium molar conc 143 mmol/L Normal 134-144 Compreh ensive Internal Medicine Work Phone: Comment on above: PATIENT NOT FASTINGP ERFORMED BY: CB [facility] Cpwyep5193 [address] RoadDublin [place] [id number] Urea nitrogen mass conc 10 mg/dL Normal 8-27 [facility] Work Phone: Comment on above: PATIENT NOT FASTINGP ERFORMED BY: ORTIZ [facility] Cviboc8262 [address] [facility] [place] [id number] Urea nitrogen/Creatinine mass ratio 11 mg/mg Abnormal 09-10 [facility] Work Phone: Comment on above: PATIENT NOT FASTINGP ERFORMED BY: ORTIZ [facility] Jsdhtn4345 [address] Roadblin [place] [id number] SED RATE ERYTHROCYTE ([id number]) Ordered By: Manager Corporate Responsibility on 10-15-2017 ESR Velocity (Bld) 2 mm/h Normal 0-40 [facility] Internal Medicine Work Phone: Comment on above: PATIENT NOT FASTINGP ERFORMED BY: ORTIZ [facility] Eucnut2793 [facility] [place] [id number] CBC W/AUTO DIFF WBC ([id number])O rdered By: Manager Corporate Responsibility on 09-01-2017 Basophils #/vol (Bld) 0.0 {x10E3/uL} Normal 0.0-0.2 [facility] Work Phone: Comment on above: PATIENT WAS FASTINGP ERFORMED BY: ORTIZ [facility] Mkjwsn7274 [facility] [place] [id number] Basophils/100 WBC (Bld) 0 % Normal [facility] Work Phone: Comment on above: PATIENT WAS FASTINGP ERFORMED BY: ORTIZ [facility] Rgxhhx9107 [facility]in [place] [id number] Eosinophils #/vol (Bld) 0.1 {x10E3/uL} Normal 0.0-0.4 [facility] Work Phone: Comment on above: PATIENT WAS FASTINGP ERFORMED BY: ORTIZ [facility] Nkeszv9897 [address] [facility] [place] [id number] Eosinophils/100 WBC (Bld) 1 % Normal [facility] Work Phone: Comment on above: PATIENT WAS FASTINGP ERFORMED BY: ORTIZ [facility] Qfjhxk5232 [facility] [place] [id number] Erythrocyte distribution width Ratio (RBC) 13.8 % Normal 12.3-15.4 [facility] Work Phone: Comment on above: PATIENT WAS FASTINGP ERFORMED BY: ORTIZ LabCoaustyn CroweVaczkv0275 [address] [facility] [id number] Hematocrit Volume Fraction (Bld) 40.2 % Normal 34.0-46.6 [facility] Work Phone: Comment on above: PATIENT WAS FASTINGP ERFORMED BY: ORTIZ LabKellie Ujerup5261 [address] [facility] [id number] Hemoglobin mass conc (Bld) 13.2 g/dL Normal 11.1-15.9 [facility] Work Phone: Comment on above: PATIENT WAS FASTINGP ERFORMED BY: ORTIZ Crowelin6370 [address] [facility] [id number] Immature granulocytes #/vol (Bld) 0.0 {x10E3/uL} Normal 0.0-0.1 [facility] Work Phone: Comment on above: PATIENT WAS FASTINGP ERFORMED BY: ORTIZ Crowelin6370 [facility] [id number] Immature granulocytes/100 WBC (Bld) 0 % Normal [facility] Work Phone: Comment on above: PATIENT WAS FASTINGP ERFORMED BY: ORTIZ Crowelin6370 [facility] [id number] Lymphocytes #/vol (Bld) 1.3 {x10E3/uL} Normal 0.7-3.1 [facility] Work Phone: Comment on above: PATIENT WAS FASTINGP ERFORMED BY: ORTIZ [facility] Orqzpo3224 [facility] [id number] Lymphocytes/100 WBC (Bld) 29 % Normal [facility] Work Phone: Comment on above: PATIENT WAS FASTINGP ERFORMED BY: ORTIZ LabAleksandr CroweBymvgz0733 [address] [facility] [id number] MCH Entitic mass (RBC) 29.5 pg Normal 26.6-33.0 Co [facility] Internal Medicine Work Phone: Comment on above: PATIENT WAS FASTINGP ERFORMED BY: ORTIZ [facility] Trthib5219 [address] Roadblin [place] [id number] MCHC mass conc (RBC) 32.8 g/dL Normal 31.5-35.7 Comp [facility] Internal Medicine Work Phone: Comment on above: PATIENT WAS FASTINGP ERFORMED BY: ORTIZ [facility] Iycewc1955 [address] RoadDublin [place] [id number] MCV Entitic volume (RBC) 90 fL Normal 79-97 [facility] Work Phone: Comment on above: PATIENT WAS FASTINGP ERFORMED BY: ORTIZ [facility] Ccvpfw7525 [address] Roadblin [place] [id number] Monocytes #/vol (Bld) 0.4 {x10E3/uL} Normal 0.1-0.9 [facility] Work Phone: Comment on above: PATIENT WAS FASTINGP ERFORMED BY: ORTIZ LabMer[facility] Vysdje9038 [address] RoadLifecare Hospitals [facility] [place] [place] [id number] Monocytes/100 WBC (Bld) 9 % Normal [facility] Work Phone: Comment on above: PATIENT WAS FASTINGP ERFORMED BY: Lab[facility] Btdnam6264 Rodriugez Roadblin [place] [id number] Neutrophils #/vol (Bld) 2.7 {x10E3/uL} Normal 1.4-7.0 [facility] Work Phone: Comment on above: PATIENT WAS FASTINGP ERFORMED BY: LabMercy Hospital St. LouisEkipit0806 [facility] [place] [id number] Neutrophils/100 WBC (Bld) 61 % Normal [facility] Work Phone: Comment on above: PATIENT WAS FASTINGP ERFORMED BY: LabCo Knyuwo6297 [address] RoadDublin [place] [id number] Platelets #/vol (Bld) 198 {x10E3/uL} Normal 150-379 [facility] Work Phone: Comment on above: PATIENT WAS FASTINGP ERFORMED BY: [facility] Twthog5131 [address] RoadDublin [place] [id number] RBC #/vol (Bld) 4.47 {x10E6/uL} Normal 3.77-5.28 [facility] Work Phone: Comment on above: PATIENT WAS FASTINGP ERFORMED BY: CB [facility] Bfkyor7685 [address] RoadDublin [place] [id number] WBC #/vol (Bld) 4.5 {x10E3/uL} Normal 3.4-10.8 [facility] Internal [facility] Work Phone: Comment on above: PATIENT WAS FASTINGP ERFORMED BY: CB [facility] Tibdjc4632 [address] RoadDublin [place] [id number] LIPID PANEL ([id number])Ordered B y: Manager Corporate Responsibility on 09-01-2017 Cholesterol in HDL mass conc 59 mg/dL Normal [facility] Work Phone: Comment on above: PATIENT WAS FASTINGP ERFORMED BY: ORTIZ [facility] Icupyu5797 [address] RoadDublin [place] [id number] Cholesterol in LDL mass conc 72 mg/dL Normal 0-99 [facility] Work Phone: Comment on above: PATIENT WAS FASTINGP ERFORMED BY: ORTIZ [facility] Oerasx8484 [address] RoadDublin [place] [id number] Cholesterol in LDL/Cholesterol in HDL mass ratio 1.2 {ratio_units} Normal 0.0-3.2 [facility] Work Phone: Comment on above: LDL/HDL Ratio Men Wo men 1/2 Avg.Risk 1.0 1.5 Avg.Risk 3.6 3.2 2X Avg.Risk 6.2 5.0 3X Avg.Risk 8.0 6.1 PATIENT WAS FASTINGP ERFORMED BY: CB [facility] Elnfog8259 [address] RoadDublin [place] [id number] Cholesterol in VLDL mass conc 18 mg/dL Normal 5-40 [facility] Work Phone: Comment on above: PATIENT WAS FASTINGP ERFORMED BY: CB [facility] Fumvvd9739 [address] RoadDublin [place] [id number] Cholesterol mass conc 149 mg/dL Normal 100-199 [facility] Work Phone: Comment on above: PATIENT WAS FASTINGP ERFORMED BY: ORTIZ [facility] Ppxecy7848 [address] Roadblin [place] [id number] Triglyceride mass conc 92 mg/dL Normal 0-149 Co [facility] Internal Medicine Work Phone: Comment on above: PATIENT WAS FASTINGP ERFORMED BY: ORTIZ [facility] Vkwfwv2568 [address] [facility]bl[facility] [place] [id number] METABOLIC PANEL, COMPREHENSI VE ([id number])Ordered By: Manager Corporate Responsibility on 09-01-2017 Albumin mass conc 4.3 g/dL Normal 3.5-4.8 Compreh [facility] Internal Medicine Work Phone: Comment on above: PATIENT WAS FASTINGP ERFORMED BY: Lab[facility] Dpjpoq2313 [address] [facility] [id number] Albumin/Globulin mass ratio 2.0 {ratio} Normal 1.2-2.2 [facility] Work Phone: Comment on above: PATIENT WAS FASTINGP ERFORMED BY: Lab[facility]6370 [address] [facility] [id number] ALP enzyme act/vol 71 [iU]/L Normal 39-117 [facility] Internal Medicine Work Phone: Comment on above: PATIENT WAS FASTINGP ERFORMED BY: [facility] Khbaxd3400 [facility]in [place] [id number] ALT enzyme act/vol 11 [iU]/L Normal 0-32 [facility] Internal Medicine Work Phone: Comment on above: PATIENT WAS FASTINGP ERFORMED BY: Lab[facility]6370 [address] [facility] [place] [id number] AST enzyme act/vol 16 [iU]/L Normal 0-40 [facility] Internal Medicine Work Phone: Comment on above: PATIENT WAS FASTINGP ERFORMED BY: [facility] Xubucs6786 [facility] [place] [id number] Bilirubin mass conc 0.4 mg/dL Normal 0.0-1.2 [facility] Internal Medicine Work Phone: Comment on above: PATIENT WAS FASTINGP ERFORMED BY: ORTIZ [facility] Jbvtrv3155 [address] RoadDublin [place] [id number] Calcium mass conc 9.5 mg/dL Normal 8.7-10.3 Compreh ensive Internal Medicine Work Phone: Comment on above: PATIENT WAS FASTINGP ERFORMED BY: ORTIZ [facility] Wkjxlh0706 [address] RoadDublin [place] [id number] Chloride molar conc 102 mmol/L Normal 96-106 Compr ehensive Internal Medicine Work Phone: Comment on above: PATIENT WAS FASTINGP ERFORMED BY: ORTIZ [facility] Ckzwgb8274 [address] RoadDublin [place] [id number] CO2 molar conc 27 mmol/L Normal 18-29 Comprehens trupti Internal Medicine Work Phone: Comment on above: PATIENT WAS FASTINGP ERFORMED BY: ORTIZ [facility] Wtecss2701 [address] RoadDublin [place] [id number] Creatinine mass conc 0.84 mg/dL Normal 0.57-1.00 Comp [facility] Internal Medicine Work Phone: Comment on above: PATIENT WAS FASTINGP ERFORMED BY: Lab[facility] Dmgrhp0090 [address] Roadbl[address] [place] [id number] GFR/1.73 sq M predicted among blacks CKD-EPI vol rate/area (S/P/Bld) 77 mL/min/1.73 Normal [facility] Work Phone: Comment on above: PATIENT WAS FASTINGP ERFORMED BY: [facility] Mhnuqh7599 [address] RoadLifecare Hospitals [facility]ain [place] [id number] GFR/1.73 sq M predicted among non-blacks CKD-EPI vol rate/area (S/P/Bld) 67 mL/min/1.73 Normal Comprehensiv e Internal Medicine Work Phone: Comment on above: PATIENT WAS FASTINGP ERFORMED BY: ORTIZ [facility] Vvjugx3534 [address] RoadDublin [place] [id number] Globulin mass conc (S) 2.2 g/dL Normal 1.5-4.5 [facility] Work Phone: Comment on above: PATIENT WAS FASTINGP ERFORMED BY: ORTIZ [facility] Siqmio3924 [address] RoadDublin [place] [id number] Glucose mass conc 88 mg/dL Normal 65-99 Compreh ensive Internal Medicine Work Phone: Comment on above: PATIENT WAS FASTINGP ERFORMED BY: ORTIZ [facility] Qgfrsi4328 [address] RoadDublin [place] [id number] Potassium molar conc 4.3 mmol/L Normal 3.5-5.2 Comp rehensive Internal Medicine Work Phone: Comment on above: PATIENT WAS FASTINGP ERFORMED BY: ORTIZ [facility] Uuctcv2770 [address] RoadDublin [place] [id number] Protein mass conc 6.5 g/dL Normal 6.0-8.5 Compreh ensive Internal Medicine Work Phone: Comment on above: PATIENT WAS FASTINGP ERFORMED BY: ORTIZ [facility] Vhaffa3566 [address] RoadDublin [place] [id number] Sodium molar conc 143 mmol/L Normal 134-144 Compreh ensive Internal Medicine Work Phone: Comment on above: PATIENT WAS FASTINGP ERFORMED BY: ORTIZ [facility] Hctyso4112 [address] RoadDublin [place] [id number] Urea nitrogen mass conc 13 mg/dL Normal 8-27 [facility] Work Phone: Comment on above: PATIENT WAS FASTINGP ERFORMED BY: ORTIZ [facility] Xpzgjy8512 [address] RoadDublin [place] [id number] Urea nitrogen/Creatinine mass ratio 15 mg/mg Normal 12- [facility] Work Phone: Comment on above: PATIENT WAS FASTINGP ERFORMED BY: ORTIZ [facility] Angbvs0693 [address] RoadDublin [place] [id number] TSH ([id number])Ordered By: Samantha Montelongo on 09-01-2017 Thyrotropin Qn 2.410 {uIU/mL} Normal 0.450-4.50 0 [facility] Work Phone: Comment on above: PATIENT WAS FASTINGP ERFORMED BY: ORTIZ [facility] Eretov6048 [address] RoadDublin [place] [id number] VITAMIN B-12 (CYANOCOBALAMIN ) ([id number])Ordered By: Manager Corporate Responsibility on 09-01-2017 Cobalamin (Vitamin B12) mass conc 311 pg/mL Normal 232-1245 [facility] Work Phone: Comment on above: Please note refere nce interval change PATIENT WAS FASTINGP ERFORMED BY: [employer] Mojlhf0412 [facility] [id number] Vitamin D Hydroxy (24639)Ord ered By: Manager Corporate Responsibility on 09-01-2017 25-Hydroxyvitamin D2+25-Hydroxyvitamin D3 mass conc 33.4 ng/mL Normal 30.0-100.0 [facility] Work Phone: Comment on above: Vitamin D deficiency has been defined by the [place] ofMedicine and an Endocrine Society practice guideline as alevel of serum 25-OH vitamin D less than 20 ng/mL (1,2).The Endocrine Society went on to further define vitamin Dinsufficiency as a level between 21 and 29 ng/mL (2).1. IOM ([place] of Medicine). 2010. Dietary reference intakes for calcium and D. [place]: The National Academies Press.2. Allie MF, Emile NC, Natalie POOLE, et al. Evaluation, treatment, and prevention of vitamin D deficiency: an Endocrine Society clinical practice guideline. JCEM. 2010; 96(7):1911-30. PATIENT WAS FASTINGP ERFORMED BY: Altia6370 [facility] [id number] Office Visiton 06-05-2017 Dietary management education, guidance, and counseling (procedure) yes Invalid Interpretation Code [facility] Work Phone: Documentation of current medications (procedure) Done Invalid Interpretation Code [facility] Work Phone: Fall risk assessment No Invalid Interpretation Code [facility] Work Phone: Tobacco use CPHS Never smoker Invalid Interpretation Code [facility] Work Phone: CALCIFIDIOL (93071) VIT D 25 Ordered By: Manager Corporate Responsibility on 12-16-2016 25-Hydroxyvitamin D2+25-Hydroxyvitamin D3 mass conc 37.5 ng/mL Normal 30.0-100.0 [facility] Work Phone: Comment on above: Vitamin D deficiency has been defined by the [place] ofMedicine and an Endocrine Society practice guideline as alevel of serum 25-OH vitamin D less than 20 ng/mL (1,2).The Endocrine Society went on to further define vitamin Dinsufficiency as a level between 21 and 29 ng/mL (2).1. IOM ([place] of Medicine). 2010. Dietary reference intakes for calcium and D. [place]: The National Academies Press.2. Allie MF, Emile [place], Natalie POOLE, et al. Evaluation, treatment, and prevention of vitamin D deficiency: an Endocrine Society clinical practice guideline. JCEM. 2010; 96(7):1911-30. PATIENT WAS FASTINGP ERFORMED BY: CB [facility] Aspmvd1230 [address] RoadDublin [place] [id number] HEPATIC FUNCTION PANEL ([id number] [id number])Ordered By: Manager Corporate Responsibility on 12-16-2016 Albumin mass conc 4.3 g/dL Normal 3.5-4.8 [facility] Internal Medicine Work Phone: Comment on above: PATIENT WAS FASTINGP ERFORMED BY: CB [facility] Ccvmag5080 [address] RoadDublin [place] [id number] ALP enzyme act/vol 72 [iU]/L Normal 39-117 [facility] Internal Medicine Work Phone: Comment on above: PATIENT WAS FASTINGP ERFORMED BY: CB [facility] Isfswd9867 [address] RoadDublin [place] [id number] ALT enzyme act/vol 15 [iU]/L Normal 0-32 [facility] Internal Medicine Work Phone: Comment on above: PATIENT WAS FASTINGP ERFORMED BY: CB [facility] Ugdrgw9260 [address] RoadDublin [place] [id number] AST enzyme act/vol 18 [iU]/L Normal 0-40 [facility] Internal Medicine Work Phone: Comment on above: PATIENT WAS FASTINGP ERFORMED BY: CB [facility] Inxxht4252 [address] RoadDublin [place] [id number] Bilirubin mass conc 0.5 mg/dL Normal 0.0-1.2 Compr ehensive Internal Medicine Work Phone: Comment on above: PATIENT WAS FASTINGP ERFORMED BY: ORTIZ [facility] Drfqvr8481 [address] [facility] [id number] Bilirubin.direct mass conc 0.16 mg/dL Normal 0.00-0.40 [facility] Work Phone: Comment on above: PATIENT WAS FASTINGP ERFORMED BY: CB [facility] Mvgnvc2487 [facility] [id number] Protein mass conc 6.7 g/dL Normal 6.0-8.5 [facility] Medicine Work Phone: Comment on above: PATIENT WAS FASTINGP ERFORMED BY: CB [facility] Rayzfz7742 [facility] [id number] LIPID PANEL ([id number])Ordered B y: Manager Corporate Responsibility on 12-16-2016 Cholesterol in HDL mass conc 56 mg/dL Normal [facility] Work Phone: Comment on above: PATIENT WAS FASTINGP ERFORMED BY: CB [facility] Hzfnnt0702 [facility] [id number] Information: [id number], [id number] Cholesterol in LDL mass conc 44 mg/dL Normal 0-99 [facility] Work Phone: Comment on above: PATIENT WAS FASTINGP ERFORMED BY: [facility] Vzqzke9165 [facility] [id number] Information: [id number], [id number] Cholesterol in LDL/Cholesterol in HDL mass ratio 0.8 {ratio_units} Normal 0.0-3.2 [facility] Work Phone: Comment on above: LDL/HDL Ratio Men Wo men 1/2 Avg.Risk 1.0 1.5 Avg.Risk 3.6 3.2 2X Avg.Risk 6.2 5.0 3X Avg.Risk 8.0 6.1 PATIENT WAS FASTINGP ERFORMED BY: CB [facility] Vyeqkw4712 [facility] [id number] Information: [id number], [id number] Cholesterol in VLDL mass conc 27 mg/dL Normal 5-40 [facility] Work Phone: Comment on above: PATIENT WAS FASTINGP ERFORMED BY: ORTIZ [facility] Krodcd7339 [facility] [id number] Information: [id number], [id number] Cholesterol mass conc 127 mg/dL Normal 100-199 Com prehensive Internal Medicine Work Phone: Comment on above: PATIENT WAS FASTINGP ERFORMED BY: CB [facility] Vpfvtf5563 [facility] [id number] Information: [id number], [id number] Triglyceride mass conc 135 mg/dL Normal 0-149 Co mprehensive Internal Medicine Work Phone: Comment on above: PATIENT WAS FASTINGP ERFORMED BY: ORTIZ [facility] Evfqvh8718 [facility] [id number] Information: [id number], [id number] Clinical Lists Update: Prelo project financial analyst 10-31-2016 Left ventricular Ejection fraction 70 % Invalid Interpretation Code [facility] Work Phone: Lipid Panel (22034)Ordered B y: Manager Corporate Responsibility on 09-16-2016 Cholesterol in HDL mass conc 44 mg/dL Normal [facility] Work Phone: Comment on above: PATIENT WAS FASTINGP ERFORMED BY: ORTIZ [facility] Coveqm0679 [facility] [id number] Cholesterol in LDL mass conc 161 mg/dL Abnormal 0-99 [facility] Work Phone: Comment on above: PATIENT WAS FASTINGP ERFORMED BY: CB [facility] Vjgzpn1217 [facility] [id number] Cholesterol in LDL/Cholesterol in HDL mass ratio 3.7 {ratio_units} Abnormal 0.0-3.2 [facility] Work Phone: Comment on above: LDL/HDL Ratio Men Wo men 1/2 Avg.Risk 1.0 1.5 Avg.Risk 3.6 3.2 2X Avg.Risk 6.2 5.0 3X Avg.Risk 8.0 6.1 PATIENT WAS FASTINGP ERFORMED BY: CB [facility] Ybzopf8035 [address] RoadDublin [place] [id number] Cholesterol in VLDL mass conc 28 mg/dL Normal 5-40 [facility] Work Phone: Comment on above: PATIENT WAS FASTINGP ERFORMED BY: CB [facility] Itokzk2152 [address] RoadDublin [place] [id number] Cholesterol mass conc 233 mg/dL Abnormal 100-199 Com prehensive Internal Medicine Work Phone: Comment on above: PATIENT WAS FASTINGP ERFORMED BY: CB [facility] Pljejo9340 [address] RoadDublin [place] [id number] Triglyceride mass conc 139 mg/dL Normal 0-149 [facility] Work Phone: Comment on above: PATIENT WAS FASTINGP ERFORMED BY: CB [facility] Truahy4143 [address] RoadDublin [place] [id number] VITAMIN B-12 (CYANOCOBALAMIN ) (31089)Ordered By: Manager Corporate Responsibility on 09-16-2016 Cobalamin (Vitamin B12) mass conc 788 pg/mL Normal 211-946 [facility] Work Phone: Comment on above: PATIENT WAS FASTINGP ERFORMED BY: CB [facility] Uifdpd6264 [address] RoadDublin [place] [id number] CALCIFIDIOL (73891) VIT D 25 Ordered By: Manager Corporate Responsibility on 07-01-2016 25-Hydroxyvitamin D2+25-Hydroxyvitamin D3 mass conc 34.8 ng/mL Normal 30.0-100.0 [facility] Work Phone: Comment on above: Vitamin D deficiency has been defined by the [place] ofMedicine and an Endocrine Society practice guideline as alevel of serum 25-OH vitamin D less than 20 ng/mL (1,2).The Endocrine Society went on to further define vitamin Dinsufficiency as a level between 21 and 29 ng/mL (2).1. IOM ([place] of Medicine). 2010. Dietary reference intakes for calcium and D. [place]: The National Academies Press.2. Allie MF, Emile PONCE, Natalie POOLE, et al. Evaluation, treatment, and prevention of vitamin D deficiency: an Endocrine Society clinical practice guideline. JCEM. 2010; 96(7):1911-30. PATIENT WAS FASTINGP ERFORMED BY: ORTIZ [facility] Qyieor6973 [address] RoadDublin [place] [id number] CBC W/AUTO DIFF WBC (69283)O rdered By: Manager Corporate Responsibility on 07-01-2016 Basophils #/vol (Bld) 0.0 {x10E3/uL} Normal 0.0-0.2 [facility] Work Phone: Comment on above: PATIENT WAS FASTINGP ERFORMED BY: ORTIZ [facility] Yzudid6197 [address] RoadDublin [place] [id number] Basophils/100 WBC (Bld) 0 % Normal [facility] Work Phone: Comment on above: PATIENT WAS FASTINGP ERFORMED BY: ORTIZ [facility] Lleqrp6577 [address] RoadDublin [place] [id number] Eosinophils #/vol (Bld) 0.1 {x10E3/uL} Normal 0.0-0.4 [facility] Work Phone: Comment on above: PATIENT WAS FASTINGP ERFORMED BY: ORTIZ [facility] Rynrrt7416 [address] RoadDublin [place] [id number] Eosinophils/100 WBC (Bld) 2 % Normal [facility] Work Phone: Comment on above: PATIENT WAS FASTINGP ERFORMED BY: ORTIZ [facility] Ploagj8689 [address] RoadDublin [place] [id number] Erythrocyte distribution width Ratio (RBC) 14.0 % Normal 12.3-15.4 [facility] Work Phone: Comment on above: PATIENT WAS FASTINGP ERFORMED BY: CB [facility] Lqnelg0001 [address] RoadDublin [place] [id number] Hematocrit Volume Fraction (Bld) 42.4 % Normal 34.0-46.6 [facility] Work Phone: Comment on above: PATIENT WAS FASTINGP ERFORMED BY: CB [facility] Kwfjwe9767 [address] RoadDublin [place] [id number] Hemoglobin mass conc (Bld) 14.1 g/dL Normal 11.1-15.9 [facility] Work Phone: Comment on above: PATIENT WAS FASTINGP ERFORMED BY: [facility]6[address] [facility]in [place] [id number] Immature granulocytes #/vol (Bld) 0.0 {x10E3/uL} Normal 0.0-0.1 [facility] Work Phone: Comment on above: PATIENT WAS FASTINGP ERFORMED BY: [facility]Mer[facility] St. LouisBaqnbg9104 [address] [facility] [id number] Immature granulocytes/100 WBC (Bld) 0 % Normal [facility] Work Phone: Comment on above: PATIENT WAS FASTINGP ERFORMED BY: [facility]6370 [address] [facility] [id number] Lymphocytes #/vol (Bld) 1.8 {x10E3/uL} Normal 0.7-3.1 [facility] Work Phone: Comment on above: PATIENT WAS FASTINGP ERFORMED BY: LabMercy [facility] St. LouisPfiocb3522 [facility] [id number] Lymphocytes/100 WBC (Bld) 31 % Normal [facility] Work Phone: Comment on above: PATIENT WAS FASTINGP ERFORMED BY: [facility]6370 [facility] [id number] MCH Entitic mass (RBC) 29.7 pg Normal 26.6-33.0 [facility] Internal Medicine Work Phone: Comment on above: PATIENT WAS FASTINGP ERFORMED BY: [facility] Vruozn7649 [facility] [id number] MCHC mass conc (RBC) 33.3 g/dL Normal 31.5-35.7 [facility] Internal Medicine Work Phone: Comment on above: PATIENT WAS FASTINGP ERFORMED BY: [facility] Gizqob0416 [facility] [id number] MCV Entitic volume (RBC) 89 fL Normal 79-97 [facility] Work Phone: Comment on above: PATIENT WAS FASTINGP ERFORMED BY: OTRIZ [facility]enaMer[facility] Qpntpi3576 [address] [facility] [id number] Monocytes #/vol (Bld) 0.4 {x10E3/uL} Normal 0.1-0.9 [facility] Work Phone: Comment on above: PATIENT WAS FASTINGP ERFORMED BY: ORTIZ [facility] Dlksyn0470 [facility] [id number] Monocytes/100 WBC (Bld) 6 % Normal [facility] Work Phone: Comment on above: PATIENT WAS FASTINGP ERFORMED BY: ORTIZ [facility] Olkobc3420 [address] [facility] [id number] Neutrophils #/vol (Bld) 3.7 {x10E3/uL} Normal 1.4-7.0 [facility] Work Phone: Comment on above: PATIENT WAS FASTINGP ERFORMED BY: ORTIZ [facility] Mhkkoe6531 [facility] [id number] Neutrophils/100 WBC (Bld) 61 % Normal [facility] Work Phone: Comment on above: PATIENT WAS FASTINGP ERFORMED BY: ORTIZ [facility] Bylijo7438 [facility] [id number] Platelets #/vol (Bld) 221 {x10E3/uL} Normal 150-379 [facility] Work Phone: Comment on above: PATIENT WAS FASTINGP ERFORMED BY: [facility] Ylrebd6920 [facility] [id number] RBC #/vol (Bld) 4.75 {x10E6/uL} Normal 3.77-5.28 [facility] Internal Medicine Work Phone: Comment on above: PATIENT WAS FASTINGP ERFORMED BY: [facility]6370 [facility] [id number] WBC #/vol (Bld) 6.0 {x10E3/uL} Normal 3.4-10.8 [facility] Internal Medicine Work Phone: Comment on above: PATIENT WAS FASTINGP ERFORMED BY: ORTIZ Ameyaaustyn Ojcjma1180 [facility] [id number] LIPID PANEL ([id number])Ordered B y: Manager Corporate Responsibility on 07-01-2016 Cholesterol in HDL mass conc 41 mg/dL Normal [facility] Work Phone: Comment on above: According to ATP-III Guidelines, HDL-C >59 mg/dL is considered anegative risk factor for CHD. PATIENT WAS FASTINGP ERFORMED BY: ORTIZ Crowelin6370 [facility] [id number] Cholesterol in LDL mass conc 129 mg/dL Abnormal 0-99 [facility] Work Phone: Comment on above: PATIENT WAS FASTINGP ERFORMED BY: ORTIZ MeenaAleksandr CroweFvdday3335 [facility] [id number] Cholesterol in LDL/Cholesterol in HDL mass ratio 3.1 {ratio_units} Normal 0.0-3.2 [facility] Work Phone: Comment on above: LDL/HDL Ratio Men Wo men 1/2 Avg.Risk 1.0 1.5 Avg.Risk 3.6 3.2 2X Avg.Risk 6.2 5.0 3X Avg.Risk 8.0 6.1 PATIENT WAS FASTINGP ERFORMED BY: ORTIZ MeenaAleksandr Uivntq9728 [facility] [id number] Cholesterol in VLDL mass conc 45 mg/dL Abnormal 5-40 [facility] Work Phone: Comment on above: PATIENT WAS FASTINGP ERFORMED BY: ORTIZ Crowelin6370 [facility] [id number] Cholesterol mass conc 215 mg/dL Abnormal 100-199 Com prehensive Internal Medicine Work Phone: Comment on above: PATIENT WAS FASTINGP ERFORMED BY: ORTIZ LabCoaustyn Cobrct7657 [facility] [id number] Triglyceride mass conc 223 mg/dL Abnormal 0-149 Co mprehensive Internal Medicine Work Phone: Comment on above: PATIENT WAS FASTINGP ERFORMED BY: ORTIZ LabAleksandr CroweOdvjdv1985 [facility] [id number] METABOLIC PANEL, COMPREHENSI VE ([id number])Ordered By: Manager Corporate Responsibility on 07-01-2016 Albumin mass conc 4.1 g/dL Normal 3.5-4.8 Compreh ensive Internal Medicine Work Phone: Comment on above: PATIENT WAS FASTINGP ERFORMED BY: ORTIZ LabAleksandr CroweVawhhm4779 [address] RoadDublin [place] [id number] Albumin/Globulin mass ratio 1.6 {ratio} Normal 1.1-2.5 [facility] Work Phone: Comment on above: PATIENT WAS FASTINGP ERFORMED BY: ORTIZ [facility] Empehw4939 [address] RoadDublin [place] [id number] ALP enzyme act/vol 98 [iU]/L Normal 39-117 Compre [facility] Internal Medicine Work Phone: Comment on above: PATIENT WAS FASTINGP ERFORMED BY: ORTIZ LabAleksadnr CroweQrqkql9960 [address] RoadDublin [place] [id number] ALT enzyme act/vol 11 [iU]/L Normal 0-32 Compre [facility] Internal Medicine Work Phone: Comment on above: PATIENT WAS FASTINGP ERFORMED BY: ORTIZ LabAleksandr CroweGwcatk5289 [address] RoadDublin [place] [id number] AST enzyme act/vol 17 [iU]/L Normal 0-40 Compre [facility] Internal Medicine Work Phone: Comment on above: PATIENT WAS FASTINGP ERFORMED BY: ORTIZ [facility] Uouima2346 [address] RoadDublin [place] [id number] Bilirubin mass conc 0.2 mg/dL Normal 0.0-1.2 Compr [facility] Internal Medicine Work Phone: Comment on above: PATIENT WAS FASTINGP ERFORMED BY: ORTIZ [facility] Ocedgf3112 [address] RoadDublin [place] [id number] Calcium mass conc 9.8 mg/dL Normal 8.7-10.3 Compreh [facility] Internal Medicine Work Phone: Comment on above: PATIENT WAS FASTINGP ERFORMED BY: ORTIZ [facility] Mrfqzc2945 [address] RoadDublin [place] [id number] Chloride molar conc 101 mmol/L Normal 97-106 Compr ehensive Internal Medicine Work Phone: Comment on above: Please note refere nce interval change PATIENT WAS FASTINGP ERFORMED BY: ORTIZ LabCoaustyn CroweGgdhtv2661 [address] [facility] [id number] CO2 molar conc 27 mmol/L Normal 18-29 Comprehens trupti Internal Medicine Work Phone: Comment on above: PATIENT WAS FASTINGP ERFORMED BY: ORTIZ [facility] Zckthb0805 [facility] [id number] Creatinine mass conc 0.89 mg/dL Normal 0.57-1.00 Comp rehensive Internal Medicine Work Phone: Comment on above: PATIENT WAS FASTINGP ERFORMED BY: ORTIZ [facility] Rgbhpy3494 [facility] [id number] GFR/1.73 sq M predicted among blacks CKD-EPI vol rate/area (S/P/Bld) 72 mL/min/1.73 Normal [facility] Work Phone: Comment on above: PATIENT WAS FASTINGP ERFORMED BY: ORTIZ [facility] Vmroxk8210 [facility] [id number] GFR/1.73 sq M predicted among non-blacks CKD-EPI vol rate/area (S/P/Bld) 63 mL/min/1.73 Normal Comprehensiv e Internal Medicine Work Phone: Comment on above: PATIENT WAS FASTINGP ERFORMED BY: ORTIZ [facility] Jdgxge0371 [facility] [id number] Globulin mass conc (S) 2.5 g/dL Normal 1.5-4.5 Co mprehensive Internal Medicine Work Phone: Comment on above: PATIENT WAS FASTINGP ERFORMED BY: ORTIZ [facility] Fopoxx3502 [facility] [id number] Glucose mass conc 92 mg/dL Normal 65-99 Compreh ensive Internal Medicine Work Phone: Comment on above: PATIENT WAS FASTINGP ERFORMED BY: ORTIZ [facility] Jsdbqn2588 [facility] [id number] Potassium molar conc 5.0 mmol/L Normal 3.5-5.2 Comp rehensive Internal Medicine Work Phone: Comment on above: Please note refere nce interval change PATIENT WAS FASTINGP ERFORMED BY: ORTIZ MeenaCo Nnvxql2632 [address] [facility] [id number] Protein mass conc 6.6 g/dL Normal 6.0-8.5 Compreh ensive Internal Medicine Work Phone: Comment on above: PATIENT WAS FASTINGP ERFORMED BY: ORTIZ [facility] Rkivog9635 [address] [facility] [place] [id number] Sodium molar conc 143 mmol/L Normal 136-144 Compreh ensive Internal Medicine Work Phone: Comment on above: Please note refere nce interval change PATIENT WAS FASTINGP ERFORMED BY: ORTIZ Crowelin6370 [facility] [id number] Urea nitrogen mass conc 9 mg/dL Normal 8-27 [facility] Work Phone: Comment on above: PATIENT WAS FASTINGP ERFORMED BY: ORTIZ Crowelin6370 [facility] [id number] Urea nitrogen/Creatinine mass ratio 10 mg/mg Abnormal 11- [facility] Work Phone: Comment on above: PATIENT WAS FASTINGP ERFORMED BY: ORTIZ Crowelin6370 [facility] [id number] MICROALBUMINOrdered By: Syst em Kitchen Clerk on 07-01-2016 Albumin DL <= 20 mg/L mass conc (U) 5.9 ug/mL Normal [facility] Work Phone: Comment on above: PATIENT WAS FASTINGP ERFORMED BY: ORTIZ [facility] Rrntmk3116 [facility] [id number] Albumin/Creatinine mass ratio (U) 4.3 {mg/g_creat} Normal 0.0-30.0 [facility] Work Phone: Comment on above: PATIENT WAS FASTINGP ERFORMED BY: ORTIZ LabKellie Ymffyy6545 [address] RoadDublin [place] [id number] Creatinine mass conc (U) 138.1 mg/dL Normal [facility] Work Phone: Comment on above: PATIENT WAS FASTINGP ERFORMED BY: ORTIZ Ameya Xxlbvb5238 [address] RoadDublin [place] [id number] TSH ([id number])Ordered By: Syste m Kitchen Clerk on 07-01-2016 Thyrotropin Qn 3.470 {uIU/mL} Normal 0.450-4.50 0 [facility] Work Phone: Comment on above: PATIENT WAS FASTINGP ERFORMED BY: ORTIZ [facility] Xuopvb3287 [address] Roadblin [place] [id number] URINALYSIS, W/ MICRO (50978) Ordered By: Manager Corporate Responsibility on 07-01-2016 Appearance Nom (U) Clear Normal Compre hensive Internal Medicine Work Phone: Comment on above: PATIENT WAS FASTINGP ERFORMED BY: ORTIZ [facility] Uqncxy4903 [address] Roadblin [place] [id number] Bilirubin Ql (U) Negative Normal Comprehe nsive Internal Medicine Work Phone: Comment on above: PATIENT WAS FASTINGP ERFORMED BY: ORTIZ LabKellie Rtjfqf2024 [address] Roadblin [place] [id number] Color Nom (U) Yellow Normal Comprehensi ve Internal Medicine Work Phone: Comment on above: PATIENT WAS FASTINGP ERFORMED BY: ORTIZ [facility] Wavoli5831 [address] RoadDublin [place] [id number] Glucose Ql (U) Negative Normal Comprehens trupti Internal Medicine Work Phone: Comment on above: PATIENT WAS FASTINGP ERFORMED BY: ORTZI [facility] Fyezlr7883 [address] RoadDublin [place] [id number] Hemoglobin Ql (U) Negative Normal Compreh ensive Internal Medicine Work Phone: Comment on above: PATIENT WAS FASTINGP ERFORMED BY: ORTIZ [facility] Jrmcks1913 [address] RoadDublin [place] [id number] Ketones Ql (U) Negative Normal Comprehens trupti Internal Medicine Work Phone: Comment on above: PATIENT WAS FASTINGP ERFORMED BY: ORTIZ LabCoaustyn Oriuxo5736 [address] RoadDublin [place] [id number] Leukocyte esterase Test strip Ql (U) Negative Normal [facility] Work Phone: Comment on above: PATIENT WAS FASTINGP ERFORMED BY: ORTIZ LabAleksandr CroweWxkzcn5471 [address] RoadDublin [place] [id number] Microscopic observation LM Nom (Urine sed) MICRON Normal [facility] Work Phone: Comment on above: Microscopic follows if indicated. PATIENT WAS FASTINGP ERFORMED BY: ORTIZ LabAleksandr CroweLkykok8100 [address] RoadDublin [place] [id number] Microscopic observation LM Nom (Urine sed) See below: Normal [facility] Work Phone: Comment on above: Microscopic was derrick cated and was performed. PATIENT WAS FASTINGP ERFORMED BY: ORTIZ LabCoaustyn CroweErlzkh6880 [address] RoadDublin [place] [id number] Nitrite Ql (U) Negative Normal Comprehens trupti Internal Medicine Work Phone: Comment on above: PATIENT WAS FASTINGP ERFORMED BY: ORTIZ LabAleksandr CroweZoehpp7765 [address] [facility] CenterD[facility] [place] [id number] pH (U) 5.5 [pH] Normal 5.0-7.5 [facility] Work Phone: Comment on above: PATIENT WAS FASTINGP ERFORMED BY: ORTIZ LabCoaustyn CroweTuwmyh6334 [address] RoadDublin [place] [id number] Protein Ql (U) Negative Normal Comprehens trupti Internal Medicine Work Phone: Comment on above: PATIENT WAS FASTINGP ERFORMED BY: ORTIZ LabCoaustyn Edkxtc6748 [address] RoadDublin [place] [id number] Specific gravity Relative Density (U) 1.016 1 Normal 1.005-1.03 0 [facility] Work Phone: Comment on above: PATIENT WAS FASTINGP ERFORMED BY: ORTIZ [facility] Jhssah4898 [address] RoadDublin [place] [id number] Urobilinogen Test strip mass conc (U) 0.2 mg/dL Normal 0.2-1.0 Comprehensiv e Internal Medicine Work Phone: Comment on above: PATIENT WAS FASTINGP ERFORMED BY: ORTIZ [facility] Vuqfrt7761 [facility] [id number] VITAMIN B-12 (CYANOCOBALAMIN ) (57007)Ordered By: Manager Corporate Responsibility on 07-01-2016 Cobalamin (Vitamin B12) mass conc 861 pg/mL Normal 211-946 [facility] Work Phone: Comment on above: PATIENT WAS FASTINGP ERFORMED BY: [facility] Qrwdur1576 [facility] [id number] CALCIFIDIOL (72861) VIT D 25 Ordered By: Manager Corporate Responsibility on 12-05-2015 25-Hydroxyvitamin D2+25-Hydroxyvitamin D3 mass conc 40.5 ng/mL Normal 30.0-100.0 [facility] Work Phone: Comment on above: Vitamin D deficiency has been defined by the [place] ofMedicine and an Endocrine Society practice guideline as alevel of serum 25-OH vitamin D less than 20 ng/mL (1,2).The Endocrine Society went on to further define vitamin Dinsufficiency as a level between 21 and 29 ng/mL (2).1. IOM ([place] of Medicine). 2010. Dietary reference intakes for calcium and D. [place]: The National Academies Press.2. Allie MF, Emile [place], Natalie POOLE, et al. Evaluation, treatment, and prevention of vitamin D deficiency: an Endocrine Society clinical practice guideline. JCEM. 2010; 96(7):1911-30. PATIENT WAS FASTINGP ERFORMED BY: [facility] Keaoro5859 [facility] [id number] CBC W/AUTO DIFF WBC (37150)O rdered By: Manager Corporate Responsibility on 12-05-2015 Basophils #/vol (Bld) 0.0 {x10E3/uL} Normal 0.0-0.2 [facility] Work Phone: Comment on above: PATIENT WAS FASTINGP ERFORMED BY: [facility] SurgicalSt. Luke's Warren HospitalQftnja5933 [facility] [id number] Information: [id number] Basophils/100 WBC (Bld) 1 % Normal [facility] Work Phone: Comment on above: PATIENT WAS FASTINGP ERFORMED BY: [place] 6263970 [facility] [id number] Information: [id number] Eosinophils #/vol (Bld) 0.2 {x10E3/uL} Normal 0.0-0.4 [facility] Work Phone: Comment on above: PATIENT WAS FASTINGP ERFORMED BY: [address] [id number] Information: [id number] Eosinophils/100 WBC (Bld) 4 % Normal [facility] Work Phone: Comment on above: PATIENT WAS FASTINGP ERFORMED BY: [address] [id number] Information: [id number] Erythrocyte distribution width Ratio (RBC) 13.7 % Normal 12.3-15.4 [facility] Work Phone: Comment on above: PATIENT WAS FASTINGP ERFORMED BY: [address] [id number] Information: [id number] Hematocrit Volume Fraction (Bld) 40.2 % Normal 34.0-46.6 [facility] Work Phone: Comment on above: PATIENT WAS FASTINGP ERFORMED BY: [place] [id number] [facility] [id number] Information: [id number] Hemoglobin mass conc (Bld) 13.6 g/dL Normal 11.1-15.9 [facility] Work Phone: Comment on above: PATIENT WAS FASTINGP ERFORMED BY: [place] [id number] [facility] [id number] Information: [id number] Immature granulocytes #/vol (Bld) 0.0 {x10E3/uL} Normal 0.0-0.1 [facility] Work Phone: Comment on above: PATIENT WAS FASTINGP ERFORMED BY: [place] 6263970 [facility] [id number] Information: [id number] Immature granulocytes/100 WBC (Bld) 0 % Normal [facility] Work Phone: Comment on above: PATIENT WAS FASTINGP ERFORMED BY: [address] [id number] Information: [id number] Lymphocytes #/vol (Bld) 1.2 {x10E3/uL} Normal 0.7-3.1 [facility] Work Phone: Comment on above: PATIENT WAS FASTINGP ERFORMED BY: [address] [id number] Information: [id number] Lymphocytes/100 WBC (Bld) 26 % Normal [facility] Work Phone: Comment on above: PATIENT WAS FASTINGP ERFORMED BY: [address] [id number] Information: [id number] MCH Entitic mass (RBC) 30.0 pg Normal 26.6-33.0 [facility] Internal Medicine Work Phone: Comment on above: PATIENT WAS FASTINGP ERFORMED BY: [address] [id number] Information: [id number] MCHC mass conc (RBC) 33.8 g/dL Normal 31.5-35.7 [facility] Internal Medicine Work Phone: Comment on above: PATIENT WAS FASTINGP ERFORMED BY: [address] [id number] Information: [id number] MCV Entitic volume (RBC) 89 fL Normal 79-97 [facility] Work Phone: Comment on above: PATIENT WAS FASTINGP ERFORMED BY: [facility]6370 [facility] [id number] Information: [id number] Monocytes #/vol (Bld) 0.5 {x10E3/uL} Normal 0.1-0.9 [facility] Work Phone: Comment on above: PATIENT WAS FASTINGP ERFORMED BY: [address] [id number] Information: [id number] Monocytes/100 WBC (Bld) 10 % Normal [facility] Work Phone: Comment on above: PATIENT WAS FASTINGP ERFORMED BY: [address] [id number] Information: [id number] Neutrophils #/vol (Bld) 2.7 {x10E3/uL} Normal 1.4-7.0 [facility] Work Phone: Comment on above: PATIENT WAS FASTINGP ERFORMED BY: [place] 6263970 [facility] [id number] Information: [id number] Neutrophils/100 WBC (Bld) 59 % Normal [facility] Work Phone: Comment on above: PATIENT WAS FASTINGP ERFORMED BY: [address] [id number] Information: [id number] Platelets #/vol (Bld) 206 {x10E3/uL} Normal 150-379 [facility] Work Phone: Comment on above: PATIENT WAS FASTINGP ERFORMED BY: [facility]6370 [facility] [id number] Information: [id number] RBC #/vol (Bld) 4.54 {x10E6/uL} Normal 3.77-5.28 Comp [facility] Internal Medicine Work Phone: Comment on above: PATIENT WAS FASTINGP ERFORMED BY: ORTIZ Nilda Chester6370 [facility] [id number] Information: [id number] WBC #/vol (Bld) 4.5 {x10E3/uL} Normal 3.4-10.8 [facility] Work Phone: Comment on above: PATIENT WAS FASTINGP ERFORMED BY: ORTIZ Nilda Chester6370 [facility] [id number] Information: [id number] LIPID PANEL ([id number])Ordered B y: Manager Corporate Responsibility on 12-05-2015 Cholesterol in HDL mass conc 46 mg/dL Normal [facility] Work Phone: Comment on above: According to ATP-III Guidelines, HDL-C >59 mg/dL is considered anegative risk factor for CHD. PATIENT WAS FASTINGP ERFORMED BY: ORTIZ Ameyaaustyn Egpury8147 [facility] [id number] Cholesterol in LDL mass conc 126 mg/dL Abnormal 0-99 [facility] Work Phone: Comment on above: PATIENT WAS FASTINGP ERFORMED BY: ORTIZ Ameyaaustyn Efkfyv7644 [facility] [id number] Cholesterol in LDL/Cholesterol in HDL mass ratio 2.7 {ratio_units} Normal 0.0-3.2 [facility] Work Phone: Comment on above: LDL/HDL Ratio Men Wo men 1/2 Avg.Risk 1.0 1.5 Avg.Risk 3.6 3.2 2X Avg.Risk 6.2 5.0 3X Avg.Risk 8.0 6.1 PATIENT WAS FASTINGP ERFORMED BY: ORTIZ [facility] Qakfgz4635 [facility] [id number] Cholesterol in VLDL mass conc 31 mg/dL Normal 5-40 [facility] Work Phone: Comment on above: PATIENT WAS FASTINGP ERFORMED BY: ORTIZ [facility] Qefhua7970 [facility] [id number] Cholesterol mass conc 203 mg/dL Abnormal 100-199 [facility] Work Phone: Comment on above: PATIENT WAS FASTINGP ERFORMED BY: ORTIZ [facility] Vslrqi7921 Rodriguez RoadDublin [place] [id number] Triglyceride mass conc 156 mg/dL Abnormal 0-149 [facility] Work Phone: Comment on above: PATIENT WAS FASTINGP ERFORMED BY: CB [facility] Xhdtxp4138 [address] [facility] [place] [id number] METABOLIC PANEL, COMPREHENSI VE ([id number])Ordered By: Manager Corporate Responsibility on 12-05-2015 Albumin mass conc 4.2 g/dL Normal 3.5-4.8 Compreh [facility] Internal Medicine Work Phone: Comment on above: PATIENT WAS FASTINGP ERFORMED BY: ORTIZ [facility] Qawvat3955 [address] [facility] [id number] Albumin/Globulin mass ratio 1.8 {ratio} Normal 1.1-2.5 [facility] Internal Medicine Work Phone: Comment on above: PATIENT WAS FASTINGP ERFORMED BY: [facility] Ncefrh7696 [address] [facility] [place] [id number] ALP enzyme act/vol 71 [iU]/L Normal 39-117 [facility] Internal Medicine Work Phone: Comment on above: PATIENT WAS FASTINGP ERFORMED BY: ORTIZ [facility] Fqgbuf5246 [address] [facility] [id number] ALT enzyme act/vol 10 [iU]/L Normal 0-32 [facility] Internal Medicine Work Phone: Comment on above: PATIENT WAS FASTINGP ERFORMED BY: CB [facility] Yklhjo7235 [address] [facility] Hospitalin [place] [id number] AST enzyme act/vol 17 [iU]/L Normal 0-40 [facility] Internal Medicine Work Phone: Comment on above: PATIENT WAS FASTINGP ERFORMED BY: CB [facility] Obzkei0936 [address] [facility] [place] [id number] Bilirubin mass conc 0.4 mg/dL Normal 0.0-1.2 [facility] Internal Medicine Work Phone: Comment on above: PATIENT WAS FASTINGP ERFORMED BY: ORTIZ [facility] Gghczy1677 Rodriguez RoadDublin [place] [id number] Calcium mass conc 9.5 mg/dL Normal 8.7-10.3 Compreh ensive Internal Medicine Work Phone: Comment on above: PATIENT WAS FASTINGP ERFORMED BY: ORTIZ [facility] Doxkth6683 Rodriguez RoadDublin [place] [id number] Chloride molar conc 106 mmol/L Normal 97-108 Compr ehensive Internal Medicine Work Phone: Comment on above: PATIENT WAS FASTINGP ERFORMED BY: ORTIZ [facility] Sryneb3566 [address] RoadDublin [place] [id number] CO2 molar conc 25 mmol/L Normal 18-29 Comprehens trupti Internal Medicine Work Phone: Comment on above: PATIENT WAS FASTINGP ERFORMED BY: ORTIZ [facility] Uxyesr2919 [address] RoadLifecare Hospit[facility] [place]ain [place] [id number] Creatinine mass conc 0.92 mg/dL Normal 0.57-1.00 Comp [facility] Internal [facility] Work Phone: Comment on above: PATIENT WAS FASTINGP ERFORMED BY: ORTIZ [facility] Tawxjh0347 [address] RoadLifecare Hospit[facility] [place] [id number] GFR/1.73 sq M predicted among blacks CKD-EPI vol rate/area (S/P/Bld) 70 mL/min/1.73 Normal [facility] Work Phone: Comment on above: PATIENT WAS FASTINGP ERFORMED BY: ORTIZ [facility] Hxysww0136 [address] RoadLifecare Hospit[facility] [place] [id number] GFR/1.73 sq M predicted among non-blacks CKD-EPI vol rate/area (S/P/Bld) 61 mL/min/1.73 Normal Comprehensiv e Internal Medicine Work Phone: Comment on above: PATIENT WAS FASTINGP ERFORMED BY: ORTIZ [facility] Usoquv6304 [address] Roadblin [place] [id number] Globulin mass conc (S) 2.3 g/dL Normal 1.5-4.5 [facility] Work Phone: Comment on above: PATIENT WAS FASTINGP ERFORMED BY: ORTIZ Crowelin6370 [address] [facility] [place] [id number] Glucose mass conc 84 mg/dL Normal 65-99 Compreh ensive Internal Medicine Work Phone: Comment on above: PATIENT WAS FASTINGP ERFORMED BY: ORTIZ Chester6[address] [facility] [place] [id number] Potassium molar conc 4.6 mmol/L Normal 3.5-5.2 [facility] Work Phone: Comment on above: PATIENT WAS FASTINGP ERFORMED BY: ORTIZ Chester6370 [address] [facility] [place] [id number] Protein mass conc 6.5 g/dL Normal 6.0-8.5 Compreh ensive Internal Medicine Work Phone: Comment on above: PATIENT WAS FASTINGP ERFORMED BY: ORTIZ Chester[address] [facility] [id number] Sodium molar conc 145 mmol/L Abnormal 134-144 Compreh ensive Internal Medicine Work Phone: Comment on above: PATIENT WAS FASTINGP ERFORMED BY: ORTIZ Chester6370 [facility] [id number] Urea nitrogen mass conc 16 mg/dL Normal 8-27 [facility] Work Phone: Comment on above: PATIENT WAS FASTINGP ERFORMED BY: ORTIZ Crowelin6370 [facility] [id number] Urea nitrogen/Creatinine mass ratio 17 mg/mg Normal 11-26 [facility] Work Phone: Comment on above: PATIENT WAS FASTINGP ERFORMED BY: ORTIZ Crowelin6370 [facility] [id number] MICROALBUMINOrdered By: Syst em Kitchen Clerk on 12-05-2015 Albumin DL <= 20 mg/L mass conc (U) 25.6 ug/mL Abnormal 0.0-17.0 [facility] Work Phone: Comment on above: PATIENT WAS FASTINGP ERFORMED BY: ORTIZ Crowelin6370 [address] RoadDublin [place] [id number] Albumin/Creatinine mass ratio (U) 9.3 {mg/g_creat} Normal 0.0-30.0 [facility] Work Phone: Comment on above: PATIENT WAS FASTINGP ERFORMED BY: ORTIZ [facility] Tacpzi1245 [address] RoadDublin [place] [id number] Creatinine mass conc (U) 276.5 mg/dL Normal 15.0-278.0 [facility] Work Phone: Comment on above: PATIENT WAS FASTINGP ERFORMED BY: [facility] Fjbfob2338 [address] RoadDublin [place] [id number] TSH ([id number])Ordered By: Syste m Kitchen Clerk on 12-05-2015 Thyrotropin Qn 1.330 {uIU/mL} Normal 0.450-4.50 0 [facility] Work Phone: Comment on above: PATIENT WAS FASTINGP ERFORMED BY: ORTIZ [facility] Glylwr0868 [address] Roadblin [place] [id number] URINALYSIS, W/ MICRO ([id number]) Ordered By: Manager Corporate Responsibility on 12-05-2015 Appearance Nom (U) Clear Normal Compre hensive Internal Medicine Work Phone: Comment on above: PATIENT WAS FASTINGP ERFORMED BY: ORTIZ [facility] Tnxflo9165 [address] RoadDublin [place] [id number] Bilirubin Ql (U) Negative Normal Comprehe nsive Internal Medicine Work Phone: Comment on above: PATIENT WAS FASTINGP ERFORMED BY: [facility] Sbnehm6125 [address] RoadDublin [place] [id number] Color Nom (U) Yellow Normal Comprehensi ve Internal Medicine Work Phone: Comment on above: PATIENT WAS FASTINGP ERFORMED BY: ORTIZ [facility] Dffqeg3170 [address] RoadDublin [place] [id number] Glucose Ql (U) Negative Normal Comprehens trupti Internal Medicine Work Phone: Comment on above: PATIENT WAS FASTINGP ERFORMED BY: ORTIZ [facility] Mcgnkj0344 Rodriguez RoadLifecare Hospitals [facility] [place]ain [place] [id number] Hemoglobin Ql (U) Negative Normal Compreh ensive Internal Medicine Work Phone: Comment on above: PATIENT WAS FASTINGP ERFORMED BY: ORTIZ MeenaAleksandr CroweEbspcn3983 [facility] [id number] Ketones Ql (U) Negative Normal Comprehens trupti Internal Medicine Work Phone: Comment on above: PATIENT WAS FASTINGP ERFORMED BY: ORTIZ Crowelin6370 [facility] [id number] Leukocyte esterase Test strip Ql (U) Negative Normal [facility] Work Phone: Comment on above: PATIENT WAS FASTINGP ERFORMED BY: ORTIZ Crowelin6370 [facility] [id number] Microscopic observation LM Nom (Urine sed) See below: Normal [facility] Work Phone: Comment on above: Microscopic was derrick cated and was performed. PATIENT WAS FASTINGP ERFORMED BY: ORTIZ Munguia Mdkdnf7569 [facility] [id number] Nitrite Ql (U) Negative Normal Comprehens trupti Internal Medicine Work Phone: Comment on above: PATIENT WAS FASTINGP ERFORMED BY: ORTIZ Crowelin6370 [facility] [id number] pH (U) 5.5 [pH] Normal 5.0-7.5 [facility] Work Phone: Comment on above: PATIENT WAS FASTINGP ERFORMED BY: ORTIZ Crowelin6370 [facility] [id number] Protein Ql (U) 1+ Abnormal Comprehens trupti Internal Medicine Work Phone: Comment on above: PATIENT WAS FASTINGP ERFORMED BY: ORTIZ Crowelin6370 [facility] [id number] Specific gravity Relative Density (U) 1.029 1 Normal 1.005-1.03 0 [facility] Work Phone: Comment on above: PATIENT WAS FASTINGP ERFORMED BY: ORTIZ Munguia [address]DuPsychiatric hospital [id number] Urobilinogen Test strip mass conc (U) 0.2 mg/dL Normal 0.2-1.0 Comprehensiv e Internal Medicine Work Phone: Comment on above: PATIENT WAS FASTINGP ERFORMED BY: ORTIZ [facility] Ssthie0744 [address] Signum BiosciencesLifecare Hospitals [facility] [place]ain [place] [id number] VITAMIN B-12 (CYANOCOBALAMIN ) (45043)Ordered By: Manager Corporate Responsibility on 12-05-2015 Cobalamin (Vitamin B12) mass conc 465 pg/mL Normal 211-946 [facility] Work Phone: Comment on above: PATIENT WAS FASTINGP ERFORMED BY: ORTIZ LabCoWyut[employer] and [employer] Uxjkbp7150 Rodriguez AURSOSin [place] [id number] Fecal Occult Blood , Office (35533)Ordered By: Gabino Bullock on 11-08-2015 Hemoglobin.gastrointes tinal Ql (St) Negative Normal [facility] Work Phone: VITAMIN B-12 (CYANOCOBALAMIN ) (60130)Ordered By: Manager Corporate Responsibility on 08-27-2015 Cobalamin (Vitamin B12) mass conc 919 pg/mL Normal 211-946 [facility] Work Phone: Comment on above: PATIENT NOT FASTINGP ERFORMED BY: [facility] Bhqunn9811 [address] AURSOSPsychiatric hospital [id number] Information: [id number] Clinical Lists Update: Prelo project financial analyst 05-26-2015 Anion gap 6 mmol/L Invalid Interpretation Code [facility] Work Phone: basophils as percent of blood leukocytes, manual count 0.5 % Invalid Interpretation Code [facility] Work Phone: BUN/Creatinine Ratio 18.8 mg/mg Invalid Interpretation Code [facility] Work Phone: Calcium 8.9 mg/dL Invalid Interpretation Code [facility] Work Phone: Chloride 106 mmol/L Invalid Interpretation Code [facility] Work Phone: CO2 31.0 mmol/L Invalid Interpretation Code [facility] Work Phone: Creatinine 0.85 mg/dL Invalid Interpretation Code [facility] Work Phone: eosinophils as percent of blood leukocytes, manual count 5.4 % High [facility] Work Phone: Erythrocytes (RBC) 4.14 10*6/uL [facility] Work Phone: Glucose 102 mg/dL Invalid Interpretation Code [facility] Work Phone: Hematocrit (HCT) 38.6 % Invalid Interpretation Code [facility] Work Phone: Hemoglobin (HGB) 12.6 g/dL Invalid Interpretation Code [facility] Work Phone: Lymphocytes/100 leukocytes 27.3 % Invalid Interpretation Code [facility] Work Phone: MCH 30.4 pg Invalid Interpretation Code [facility] Work Phone: MCHC 32.6 g/dL Invalid Interpretation Code [facility] Work Phone: MCV 93.2 fL Invalid Interpretation Code [facility] Work Phone: Monocytes/100 leukocytes 10.2 % High [facility] Work Phone: neutrophils, band form as percent of blood leukocytes, manual count 56.4 % Invalid Interpretation Code [facility] Work Phone: Platelets 162 10*3/mm3 Invalid Interpretation Code [facility] Work Phone: PMV by Bernard 9.6 fL Invalid Interpretation Code [facility] Work Phone: Potassium 4.3 mmol/L Invalid Interpretation Code [facility] Work Phone: RDW-CA 12.9 % Invalid Interpretation Code [facility] Work Phone: Sodium 143 mmol/L Invalid Interpretation Code [facility] Work Phone: Urea nitrogen 16 mg/dL Invalid Interpretation Code [facility] Work Phone: WBC (Leukocytes) 6.3 10*3/uL Invalid Interpretation Code [facility] Work Phone: Clinical Lists Update: Preroberto smith 04-26-2015 Cholesterol 136 mg/dL Invalid Interpretation Code [facility] Work Phone: HDL Cholesterol 49 mg/dL Invalid Interpretation Code [facility] Work Phone: LDL Cholesterol 66 mg/dL Invalid Interpretation Code [facility] Work Phone: Triglyceride 105 mg/dL Invalid Interpretation Code [facility] Work Phone: very low density lipoproteins 21 mg/dL Invalid Interpretation Code [facility] Work Phone: CBC W/AUTO DIFF WBC (95287)O rdered By: Manager Corporate Responsibility on 10-19-2014 Basophils #/vol (Bld) 0.0 {x10E3/uL} Normal 0.0-0.2 [facility] Work Phone: Comment on above: PATIENT WAS FASTINGP ERFORMED BY: [facility]6370 [facility] [id number] Information: [id number] Basophils/100 WBC (Bld) 1 % Normal [facility] Work Phone: Comment on above: PATIENT WAS FASTINGP ERFORMED BY: [facility] SurgicalSt. Luke's Warren HospitalRjwncg2[address] [place] [address] [id number] Information: [id number] Eosinophils #/vol (Bld) 0.2 {x10E3/uL} Normal 0.0-0.4 [facility] Work Phone: Comment on above: PATIENT WAS FASTINGP ERFORMED BY: [facility] SurgicalSt. Luke's Warren HospitalTqnjzl9480 [facility] [id number] Information: [id number] Eosinophils/100 WBC (Bld) 5 % Normal [facility] Work Phone: Comment on above: PATIENT WAS FASTINGP ERFORMED BY: [place] 6263970 [facility] [id number] Information: [id number] Erythrocyte distribution width Ratio (RBC) 13.5 % Normal 12.3-15.4 [facility] Work Phone: Comment on above: PATIENT WAS FASTINGP ERFORMED BY: ORTIZ [facility] Lwivtz2866 [facility] [id number] Information: [id number] Hematocrit Volume Fraction (Bld) 39.1 % Normal 34.0-46.6 [facility] Work Phone: Comment on above: PATIENT WAS FASTINGP ERFORMED BY: [address] [id number] Information: [id number] Hemoglobin mass conc (Bld) 12.9 g/dL Normal 11.1-15.9 [facility] Work Phone: Comment on above: PATIENT WAS FASTINGP ERFORMED BY: [facility] Sbswht[address] [id number] Information: [id number] Immature granulocytes #/vol (Bld) 0.0 {x10E3/uL} Normal 0.0-0.1 [facility] Work Phone: Comment on above: PATIENT WAS FASTINGP ERFORMED BY: Meena[address] [id number] Information: [id number] Immature granulocytes/100 WBC (Bld) 0 % Normal [facility] Work Phone: Comment on above: PATIENT WAS FASTINGP ERFORMED BY: [address] [id number] Information: [id number] Lymphocytes #/vol (Bld) 1.2 {x10E3/uL} Normal 0.7-3.1 [facility] Work Phone: Comment on above: PATIENT WAS FASTINGP ERFORMED BY: Meena[address] [id number] Information: [id number] Lymphocytes/100 WBC (Bld) 25 % Normal [facility] Work Phone: Comment on above: PATIENT WAS FASTINGP ERFORMED BY: ORTIZ [facility]6370 [facility] [id number] Information: [id number] MCH Entitic mass (RBC) 29.8 pg Normal 26.6-33.0 Co [facility] Internal Medicine Work Phone: Comment on above: PATIENT WAS FASTINGP ERFORMED BY: [address] [id number] Information: [id number] MCHC mass conc (RBC) 33.0 g/dL Normal 31.5-35.7 [facility] Internal Medicine Work Phone: Comment on above: PATIENT WAS FASTINGP ERFORMED BY: ORTIZ [address] [id number] Information: [id number] MCV Entitic volume (RBC) 90 fL Normal 79-97 [facility] Work Phone: Comment on above: PATIENT WAS FASTINGP ERFORMED BY: ORTIZ [address] [id number] Information: [id number] Monocytes #/vol (Bld) 0.5 {x10E3/uL} Normal 0.1-0.9 [facility] Work Phone: Comment on above: PATIENT WAS FASTINGP ERFORMED BY: ORTIZ [place] 7305770 [facility] [id number] Information: [id number] Monocytes/100 WBC (Bld) 10 % Normal [facility] Work Phone: Comment on above: PATIENT WAS FASTINGP ERFORMED BY: [address] [id number] Information: [id number] Neutrophils #/vol (Bld) 2.9 {x10E3/uL} Normal 1.4-7.0 [facility] Work Phone: Comment on above: PATIENT WAS FASTINGP ERFORMED BY: [place] [address] [facility] [id number] Information: [id number] Neutrophils/100 WBC (Bld) 59 % Normal [facility] Work Phone: Comment on above: PATIENT WAS FASTINGP ERFORMED BY: [facility]6370 [facility] [id number] Information: [id number] Platelets #/vol (Bld) 196 {x10E3/uL} Normal 150-379 [facility] Work Phone: Comment on above: PATIENT WAS FASTINGP ERFORMED BY: [place] 6263970 [facility] [id number] Information: [id number] RBC #/vol (Bld) 4.33 {x10E6/uL} Normal 3.77-5.28 [facility] Internal Medicine Work Phone: Comment on above: PATIENT WAS FASTINGP ERFORMED BY: [facility]6370 [facility] [id number] Information: [id number] WBC #/vol (Bld) 4.9 {x10E3/uL} Normal 3.4-10.8 [facility] Internal Medicine Work Phone: Comment on above: PATIENT WAS FASTINGP ERFORMED BY: [place] 6263970 [facility] [id number] Information: [id number] LIPID PANEL ([id number])Ordered B y: Manager Corporate Responsibility on 10-19-2014 Cholesterol in HDL mass conc 47 mg/dL Normal [facility] Work Phone: Comment on above: According to ATP-III Guidelines, HDL-C >59 mg/dL is considered anegative risk factor for CHD. PATIENT WAS FASTINGP ERFORMED BY: [facility]6370 [facility] [id number] Cholesterol in LDL mass conc 148 mg/dL Abnormal 0-99 [facility] Work Phone: Comment on above: PATIENT WAS FASTINGP ERFORMED BY: ORTIZ LabCoaustyn CroweEezkql1772 [address] Roadblin [place] [id number] Cholesterol in LDL/Cholesterol in HDL mass ratio 3.1 {ratio_units} Normal 0.0-3.2 [facility] Work Phone: Comment on above: LDL/HDL Ratio Men Wo men 1/2 Avg.Risk 1.0 1.5 Avg.Risk 3.6 3.2 2X Avg.Risk 6.2 5.0 3X Avg.Risk 8.0 6.1 PATIENT WAS FASTINGP ERFORMED BY: ORTIZ LabAleksandr CroweCtqart8951 [address] RoadDublin [place] [id number] Cholesterol in VLDL mass conc 36 mg/dL Normal 5-40 [facility] Work Phone: Comment on above: PATIENT WAS FASTINGP ERFORMED BY: ORTIZ LabAleksandr CroweUredco[address] Rodriguez Signum Biosciencesblin [place] [id number] Cholesterol mass conc 231 mg/dL Abnormal 100-199 Com prehensive Internal Medicine Work Phone: Comment on above: PATIENT WAS FASTINGP ERFORMED BY: ORTIZ LabAleksandr CroweHdocyx1198 [facility] [place] [id number] Triglyceride mass conc 179 mg/dL Abnormal 0-149 Co [facility] Work Phone: Comment on above: PATIENT WAS FASTINGP ERFORMED BY: ORTIZ Munguia Wmyixi9983 [facility] [place] [id number] METABOLIC PANEL, COMPREHENSI VE ([id number])Ordered By: Manager Corporate Responsibility on 10-19-2014 Albumin mass conc 4.3 g/dL Normal 3.5-4.8 Compreh ensive Internal Medicine Work Phone: Comment on above: PATIENT WAS FASTINGP ERFORMED BY: ORTIZ [facility] Onzcaw5230 Rodriguez RoadDublin [place] [id number] Albumin/Globulin mass ratio 2.2 {ratio} Normal 1.1-2.5 [facility] Work Phone: Comment on above: PATIENT WAS FASTINGP ERFORMED BY: ORTIZ [facility] Artqqz8890 [address] [facility] [place] [id number] ALP enzyme act/vol 73 [iU]/L Normal 39-117 [facility] Internal Medicine Work Phone: Comment on above: PATIENT WAS FASTINGP ERFORMED BY: ORTIZ [facility] Ogtblo2840 Rodriguez RoadDublin [place] [id number] ALT enzyme act/vol 8 [iU]/L Normal 0-32 [facility] Internal Medicine Work Phone: Comment on above: PATIENT WAS FASTINGP ERFORMED BY: [facility] Llpisi0294 Rodriguez Roadblin [place] [id number] AST enzyme act/vol 15 [iU]/L Normal 0-40 [facility] Internal Medicine Work Phone: Comment on above: PATIENT WAS FASTINGP ERFORMED BY: ORTIZ [facility] Recjgu0825 Rodriguez Roadblin [place] [id number] Bilirubin mass conc 0.3 mg/dL Normal 0.0-1.2 Compr ensive Internal Medicine Work Phone: Comment on above: PATIENT WAS FASTINGP ERFORMED BY: [facility]Mer[facility] Nfhxpi9882 Rodriguez RoadLifecare Hospitals Of [place]inain [place] [id number] Calcium mass conc 9.6 mg/dL Normal 8.7-10.3 Compreh [facility] Internal Medicine Work Phone: Comment on above: PATIENT WAS FASTINGP ERFORMED BY: LabCo Jzfdxf7771 Rodriguez RoadLifecare Hospitals Of [facility] [place]inain [place] [id number] Chloride molar conc 99 mmol/L Normal 97-108 Compr [facility] Internal Medicine Work Phone: Comment on above: PATIENT WAS FASTINGP ERFORMED BY: [facility] Sogkqg0607 Rodriguez RoadDublin [place] [id number] CO2 molar conc 27 mmol/L Normal 18-29 Comprehens trupti Internal Medicine Work Phone: Comment on above: PATIENT WAS FASTINGP ERFORMED BY: [facility] Bmjkgo9800 Rodriguez RoadDublin [place] [id number] Creatinine mass conc 0.91 mg/dL Normal 0.57-1.00 Comp [facility]erensive Internal Medicine Work Phone: Comment on above: PATIENT WAS FASTINGP ERFORMED BY: [facility] Qlowpo7019 [address] [facility] [place] [id number] GFR/1.73 sq M predicted among blacks CKD-EPI vol rate/area (S/P/Bld) 71 mL/min/1.73 Normal [facility] Medicine Work Phone: Comment on above: PATIENT WAS FASTINGP ERFORMED BY: [facility] Zfghep7708 Rodriguez Roadblin [place] [id number] GFR/1.73 sq M predicted among non-blacks CKD-EPI vol rate/area (S/P/Bld) 62 mL/min/1.73 Normal Comprehensiv e Internal Medicine Work Phone: Comment on above: PATIENT WAS FASTINGP ERFORMED BY: Lab[facility] Spkemo2155 [facility] [id number] Globulin mass conc (S) 2.0 g/dL Normal 1.5-4.5 Co mprehensive Internal Medicine Work Phone: Comment on above: PATIENT WAS FASTINGP ERFORMED BY: [facility] Aydhhh9916 [facility] [place] [id number] Glucose mass conc 82 mg/dL Normal 65-99 Compreh ensive Internal Medicine Work Phone: Comment on above: PATIENT WAS FASTINGP ERFORMED BY: [facility] Ktlrvv3281 [facility] [id number] Potassium molar conc 4.6 mmol/L Normal 3.5-5.2 Comp rehensive Internal Medicine Work Phone: Comment on above: PATIENT WAS FASTINGP ERFORMED BY: [facility] Gztkpt2050 [facility]in [place] [id number] Protein mass conc 6.3 g/dL Normal 6.0-8.5 Compreh ensive Internal Medicine Work Phone: Comment on above: PATIENT WAS FASTINGP ERFORMED BY: [facility] Hggfhe6351 [facility]in [place] [id number] Sodium molar conc 141 mmol/L Normal 134-144 Compreh ensive Internal Medicine Work Phone: Comment on above: PATIENT WAS FASTINGP ERFORMED BY: [facility] Jxghzt1769 Rodriguez RoadDublin [place] [id number] Urea nitrogen mass conc 11 mg/dL Normal 8-27 [facility] Work Phone: Comment on above: PATIENT WAS FASTINGP ERFORMED BY: [facility] Opajyy8777 Rodriguez RoadDublin [place] [id number] Urea nitrogen/Creatinine mass ratio 12 mg/mg Normal 11-26 [facility] Medicine Work Phone: Comment on above: PATIENT WAS FASTINGP ERFORMED BY: [facility] Hxnxqj8584 Rodriguez RoadDublin [place] [id number] MICROALBUMINOrdered By: Viptable em Kitchen Clerk on 10-19-2014 Albumin DL <= 20 mg/L mass conc (U) 10.7 ug/mL Normal 0.0-17.0 [facility] Work Phone: Comment on above: PATIENT WAS FASTINGP ERFORMED BY: LabMercy Hospital St. LouisRmgreq4864 Rodriguez RoadDublin [place] [id number] Albumin/Creatinine mass ratio (U) 8.1 {mg/g_creat} Normal 0.0-30.0 [facility] Work Phone: Comment on above: PATIENT WAS FASTINGP ERFORMED BY: LabKellie Aochda0959 Rodriguez RoadDublin [place] [id number] Creatinine mass conc (U) 132.3 mg/dL Normal 15.0-278.0 [facility] Work Phone: Comment on above: PATIENT WAS FASTINGP ERFORMED BY: LabMer[facility] Afcquz6341 Rodriguez RoadDublin [place] [id number] TSH ([id number])Ordered By: Viptablee m Kitchen Clerk on 10-19-2014 Thyrotropin Qn 1.170 {uIU/mL} Normal 0.450-4.50 0 [facility] Medicine Work Phone: Comment on above: PATIENT WAS FASTINGP ERFORMED BY: Lab[facility] Gpmzqw7950 Rodriguez RoadDublin [place] [id number] URINALYSIS, W/ MICRO ([id number]) Ordered By: Manager Corporate Responsibility on 10-19-2014 Appearance Nom (U) Clear Normal Compre hensive Internal Medicine Work Phone: Comment on above: PATIENT WAS FASTINGP ERFORMED BY: ORTIZ LabAleksandr CroweWfflhb1496 Rodriguez RoadDublin [place] [id number] Bilirubin Ql (U) Negative Normal Comprehe nsive Internal Medicine Work Phone: Comment on above: PATIENT WAS FASTINGP ERFORMED BY: ORTIZ LabAleksandr CroweZwykdd7156 Rodriguez RoadDublin [place] [id number] Color Nom (U) Yellow Normal Comprehensi ve Internal Medicine Work Phone: Comment on above: PATIENT WAS FASTINGP ERFORMED BY: ORTIZ LabAleksandr CroweFiychi4443 [address] RoadDublin [place] [id number] Glucose Ql (U) Negative Normal Comprehens trupti Internal Medicine Work Phone: Comment on above: PATIENT WAS FASTINGP ERFORMED BY: ORTIZ Crowelin6370 Rodriguez RoadDublin [place] [id number] Hemoglobin Ql (U) Negative Normal Compreh ensive Internal Medicine Work Phone: Comment on above: PATIENT WAS FASTINGP ERFORMED BY: ORTIZ Crowelin6370 [address] RoadDublin [place] [id number] Ketones Ql (U) Negative Normal Comprehens trupti Internal Medicine Work Phone: Comment on above: PATIENT WAS FASTINGP ERFORMED BY: ORTIZ Crowelin6370 [address] RoadDublin [place] [id number] Leukocyte esterase Test strip Ql (U) Negative Normal [facility] Medicine Work Phone: Comment on above: PATIENT WAS FASTINGP ERFORMED BY: ORTIZ LabKellierp Cwtpge6216 Rodriguez RoadDublin [place] [id number] Microscopic observation LM Nom (Urine sed) See below: Normal [facility] Work Phone: Comment on above: Microscopic was derrick cated and was performed. PATIENT WAS FASTINGP ERFORMED BY: ORTIZ [facility] Luoybz3326 Rodriguez RoadDublin [place] [id number] Microscopic observation LM Nom (Urine sed) MICRON Normal [facility] Medicine Work Phone: Comment on above: Microscopic follows if indicated. PATIENT WAS FASTINGP ERFORMED BY: ORTIZ LabCoaustyn Nkvbtm1294 [address] RoadDublin [place] [id number] Nitrite Ql (U) Negative Normal Comprehens trupti Internal Medicine Work Phone: Comment on above: PATIENT WAS FASTINGP ERFORMED BY: ORTIZ [facility] Tcucij3077 Rodriguez RoadDublin [place] [id number] pH (U) 7.0 [pH] Normal 5.0-7.5 [facility] Work Phone: Comment on above: PATIENT WAS FASTINGP ERFORMED BY: ORTIZ [facility] Mmxklt4744 Rodriguez RoadDublin [place] [id number] Protein Ql (U) Trace Normal Comprehens trupti Internal Medicine Work Phone: Comment on above: PATIENT WAS FASTINGP ERFORMED BY: ORTIZ [facility] Gimmea4742 Rodriguez Signum BiosciencesDublin [place] [id number] Specific gravity Relative Density (U) 1.017 1 Normal 1.005-1.03 0 [facility] Work Phone: Comment on above: PATIENT WAS FASTINGP ERFORMED BY: ORTIZ [facility] Pazseq4280 [address] RoadDublin [place] [id number] Urobilinogen Test strip mass conc (U) 0.2 mg/dL Normal 0.0-1.9 Comprehensiv e Internal Medicine Work Phone: Comment on above: PATIENT WAS FASTINGP ERFORMED BY: ORTIZ [facility] Hdhfdz4665 Rodriguez RoadDublin [place] [id number] Vitamin D Hydroxy (49614)Ord ered By: Manager Corporate Responsibility on 10-19-2014 25-Hydroxyvitamin D2+25-Hydroxyvitamin D3 mass conc 39.6 ng/mL Normal 30.0-100.0 [facility] Work Phone: Comment on above: Vitamin D deficiency has been defined by the [place] ofMedicine and an Endocrine Society practice guideline as alevel of serum 25-OH vitamin D less than 20 ng/mL (1,2).The Endocrine Society went on to further define vitamin Dinsufficiency as a level between 21 and 29 ng/mL (2).1. IOM ([place] of Medicine). 2010. Dietary reference intakes for calcium and D. [place]: The National Academies Press.2. Allie MF, Emile PONCE, Natalie POOLE, et al. Evaluation, treatment, and prevention of vitamin D deficiency: an Endocrine Society clinical practice guideline. JCEM. 2010; 96(7):1911-30. PATIENT WAS FASTINGP ERFORMED BY: LabCoSt. Luke's Warren HospitalPftxlj4031 [facility] [id number] FECAL OCCULT HGB ASSAY- tube s sent home (17162)Ordered By: Cady Huber on 10-12-2014 Hemoglobin.gastrointes tinal Ql (St) Negative Normal [facility] Work Phone: Office Visit: [facility] 10-10-19 15 cardiac risk group C Invalid Interpretation Code [employer] Work Phone: General cardiovascular disease 10Y risk [#] [place].D'Agostallie N/A Invalid Interpretation Code [employer] Work Phone: Replaced Document: Escobar Watsonon 10-10-2014 electrocardiogram interpretation Sinus Bradycardia WITHIN NORMAL LIMITS Invalid Interpretation Code [employer] Work Phone: GE use only - for LinkLogic import when terms are not otherwise specified 438 ms Invalid Interpretation Code [employer] Work Phone: P wave axis, electrocardiogram 33 deg Invalid Interpretation Code [employer] Work Phone: NE interval, electrocardiogram 164 ms Invalid Interpretation Code [employer] Work Phone: Pulse (Heart Rate) 55 /min Invalid Interpretation Code [employer] Work Phone: QRS axis, electrocardiogram 7 deg Invalid Interpretation Code [employer] Work Phone: QRS duration, electrocardiogram 90 ms Invalid Interpretation Code [employer] Work Phone: QT interval, electrocardiogram new path ms Invalid Interpretation Code [employer] Work Phone: T wave axis, electrocardiogram 41 deg Invalid Interpretation Code [employer] Work Phone: CBC WITH MANUAL DIFF ([id number]) Ordered By: Manager Corporate Responsibility on 06-26-2014 Basophils #/vol (Bld) 0.0 {x10E3/uL} Normal 0.0-0.2 [facility] Work Phone: Comment on above: PATIENT WAS FASTINGP ERFORMED BY: LabCo Zhloyr1316 [facility] [id number] Information: [id number] Basophils/100 WBC (Bld) 1 % Normal [facility] Work Phone: Comment on above: PATIENT WAS FASTINGP ERFORMED BY: LabCoSt. Luke's Warren HospitalIiieun4623 [facility] [id number] Information: [id number] Eosinophils #/vol (Bld) 0.2 {x10E3/uL} Normal 0.0-0.4 [facility] Work Phone: Comment on above: PATIENT WAS FASTINGP ERFORMED BY: LabHenry [facility] Hospital6370 [facility] [id number] Information: [id number] Eosinophils/100 WBC (Bld) 3 % Normal [facility] Work Phone: Comment on above: PATIENT WAS FASTINGP ERFORMED BY: LabHenry [facility] Hospital6370 [facility] [id number] Information: [id number] Erythrocyte distribution width Ratio (RBC) 13.4 % Normal 12.3-15.4 [facility] Work Phone: Comment on above: PATIENT WAS FASTINGP ERFORMED BY: LabCo Nisvlj7624 [facility] [id number] Information: [id number] Hematocrit Volume Fraction (Bld) 40.5 % Normal 34.0-46.6 [facility] Work Phone: Comment on above: PATIENT WAS FASTINGP ERFORMED BY: [facility] Juucxm0949 [facility] [id number] Information: [id number] Hemoglobin mass conc (Bld) 13.1 g/dL Normal 11.1-15.9 [facility] Work Phone: Comment on above: PATIENT WAS FASTINGP ERFORMED BY: [place] 6263970 [facility] [id number] Information: [id number] Immature granulocytes #/vol (Bld) 0.0 {x10E3/uL} Normal 0.0-0.1 [facility] Work Phone: Comment on above: PATIENT WAS FASTINGP ERFORMED BY: [address] [id number] Information: [id number] Immature granulocytes/100 WBC (Bld) 0 % Normal [facility] Work Phone: Comment on above: PATIENT WAS FASTINGP ERFORMED BY: [address] [id number] Information: [id number] Lymphocytes #/vol (Bld) 1.1 {x10E3/uL} Normal 0.7-3.1 [facility] Work Phone: Comment on above: PATIENT WAS FASTINGP ERFORMED BY: [place] 6263970 [facility] [id number] Information: [id number] Lymphocytes/100 WBC (Bld) 21 % Normal [facility] Work Phone: Comment on above: PATIENT WAS FASTINGP ERFORMED BY: [address] [id number] Information: [id number] MCH Entitic mass (RBC) 29.4 pg Normal 26.6-33.0 [facility] Internal Medicine Work Phone: Comment on above: PATIENT WAS FASTINGP ERFORMED BY: [place] 6263970 [facility] [id number] Information: [id number] MCHC mass conc (RBC) 32.3 g/dL Normal 31.5-35.7 [facility] Internal Medicine Work Phone: Comment on above: PATIENT WAS FASTINGP ERFORMED BY: ORTIZ [facility]enaMercy Hospital [facility]lin Cnrgmb0972 [facility] [id number] Information: [id number] MCV Entitic volume (RBC) 91 fL Normal 79-97 [facility] Work Phone: Comment on above: PATIENT WAS FASTINGP ERFORMED BY: [address] [id number] Information: [id number] Monocytes #/vol (Bld) 0.5 {x10E3/uL} Normal 0.1-0.9 [facility] Work Phone: Comment on above: PATIENT WAS FASTINGP ERFORMED BY: ORTIZ [address] [id number] Information: [id number] Monocytes/100 WBC (Bld) 10 % Normal [facility] Work Phone: Comment on above: PATIENT WAS FASTINGP ERFORMED BY: [address] [id number] Information: [id number] Neutrophils #/vol (Bld) 3.7 {x10E3/uL} Normal 1.4-7.0 [facility] Work Phone: Comment on above: PATIENT WAS FASTINGP ERFORMED BY: [address] [id number] Information: [id number] Neutrophils/100 WBC (Bld) 65 % Normal [facility] Work Phone: Comment on above: PATIENT WAS FASTINGP ERFORMED BY: [address] [id number] Information: [id number] Platelets #/vol (Bld) 198 {x10E3/uL} Normal 150-379 [facility] Work Phone: Comment on above: PATIENT WAS FASTINGP ERFORMED BY: ORTIZ [facility]oMer[facility] Wfcrzx8874 [facility] [id number] Information: [id number] RBC #/vol (Bld) 4.45 {x10E6/uL} Normal 3.77-5.28 [facility] Internal Medicine Work Phone: Comment on above: PATIENT WAS FASTINGP ERFORMED BY: ORTIZ [facility]ledoMercy Hospital [facility]lin Dtvsqz9109 [facility] [id number] Information: [id number] WBC #/vol (Bld) 5.6 {x10E3/uL} Normal 3.4-10.8 [facility] Internal Medicine Work Phone: Comment on above: PATIENT WAS FASTINGP ERFORMED BY: ORTIZ [facility]enaMer[facility] Hospital [facility]lin Hyvmfd6231 [facility] [id number] Information: [id number] LIPID PANEL ([id number])Ordered B y: Manager Corporate Responsibility on 06-26-2014 Cholesterol in HDL mass conc 46 mg/dL Normal [facility] Medicine Work Phone: Comment on above: According to ATP-III Guidelines, HDL-C >59 mg/dL is considered anegative risk factor for CHD. PATIENT WAS FASTINGP ERFORMED BY: ORTIZ Ameya Xwozms2752 [facility] [id number] Cholesterol in LDL mass conc 130 mg/dL Abnormal 0-99 [facility] Work Phone: Comment on above: PATIENT WAS FASTINGP ERFORMED BY: [facility]6370 [facility] [id number] Cholesterol in LDL/Cholesterol in HDL mass ratio 2.8 {ratio_units} Normal 0.0-3.2 [facility] Work Phone: Comment on above: LDL/HDL Ratio Men Wo men 1/2 Avg.Risk 1.0 1.5 Avg.Risk 3.6 3.2 2X Avg.Risk 6.2 5.0 3X Avg.Risk 8.0 6.1 PATIENT WAS FASTINGP ERFORMED BY: [place] 6263970 [facility] [id number] Cholesterol in VLDL mass conc 41 mg/dL Abnormal 5-40 [facility] Work Phone: Comment on above: PATIENT WAS FASTINGP ERFORMED BY: ORTIZ LabAleksandr CroweLnicnd4637 [facility] [id number] Cholesterol mass conc 217 mg/dL Abnormal 100-199 Com prehensive Internal Medicine Work Phone: Comment on above: PATIENT WAS FASTINGP ERFORMED BY: ORTIZ LabCoaustyn CroweCixqsy9760 [facility] [id number] Triglyceride mass conc 203 mg/dL Abnormal 0-149 Co [facility]erehens[facility] Internal Medicine Work Phone: Comment on above: PATIENT WAS FASTINGP ERFORMED BY: ORTIZ LabAleksandr CroweSvvcfh7020 [facility] [id number] METABOLIC PANEL, COMPREHENSI VE ([id number])Ordered By: Manager Corporate Responsibility on 06-26-2014 Albumin mass conc 4.0 g/dL Normal 3.5-4.8 Compreh [facility] Internal Medicine Work Phone: Comment on above: PATIENT WAS FASTINGP ERFORMED BY: ORTIZ LabCoaustyn CroweXuzxwp5182 [facility] [id number] Albumin/Globulin mass ratio 1.7 {ratio} Normal 1.1-2.5 [facility] Internal Medicine Work Phone: Comment on above: PATIENT WAS FASTINGP ERFORMED BY: ORTIZ [facility] Blhucb5296 [facility] [id number] ALP enzyme act/vol 80 [iU]/L Normal 39-117 [facility]heart[facility] Internal Medicine Work Phone: Comment on above: PATIENT WAS FASTINGP ERFORMED BY: ORTIZ [facility] Etbgfr7504 [facility] [id number] ALT enzyme act/vol 8 [iU]/L Normal 0-32 [facility] Internal Medicine Work Phone: Comment on above: PATIENT WAS FASTINGP ERFORMED BY: ORTIZ [facility] Efduuq3558 [facility] [id number] AST enzyme act/vol 10 [iU]/L Normal 0-40 [facility] Internal Medicine Work Phone: Comment on above: PATIENT WAS FASTINGP ERFORMED BY: ORTIZ LabCoaustyn ChesterFtuemp9307 [address] [facility] [id number] Bilirubin mass conc 0.3 mg/dL Normal 0.0-1.2 Compr ensive Internal Medicine Work Phone: Comment on above: PATIENT WAS FASTINGP ERFORMED BY: ORTIZ LabCoaustyn CroweTmcrvi0741 [address] [facility] [id number] Calcium mass conc 9.4 mg/dL Normal 8.6-10.2 Compreh [facility] Internal Medicine Work Phone: Comment on above: PATIENT WAS FASTINGP ERFORMED BY: ORTIZ LabAleksandr Chester6370 [facility] [id number] Chloride molar conc 100 mmol/L Normal 97-108 Compr [facility] Internal Medicine Work Phone: Comment on above: PATIENT WAS FASTINGP ERFORMED BY: ORTIZ Crowelin6370 [facility] [id number] CO2 molar conc 26 mmol/L Normal 18-29 Comprehens [facility] Internal Medicine Work Phone: Comment on above: PATIENT WAS FASTINGP ERFORMED BY: ORTIZ Chester6370 [facility] [id number] Creatinine mass conc 0.80 mg/dL Normal 0.57-1.00 Comp [facility] Internal Medicine Work Phone: Comment on above: PATIENT WAS FASTINGP ERFORMED BY: ORTIZ [facility] Rjgllk5938 [facility] [id number] GFR/1.73 sq M predicted among blacks CKD-EPI vol rate/area (S/P/Bld) 83 mL/min/1.73 Normal [facility] Medicine Work Phone: Comment on above: PATIENT WAS FASTINGP ERFORMED BY: ORTIZ [facility] Tetpej2595 [facility] [id number] GFR/1.73 sq M predicted among non-blacks CKD-EPI vol rate/area (S/P/Bld) 72 mL/min/1.73 Normal Comprehensiv e Internal Medicine Work Phone: Comment on above: PATIENT WAS FASTINGP ERFORMED BY: ORTIZ LabCoaustyn CroweTiyfmj2678 [address] [facility] [id number] Globulin mass conc (S) 2.3 g/dL Normal 1.5-4.5 Co mprehensive Internal Medicine Work Phone: Comment on above: PATIENT WAS FASTINGP ERFORMED BY: ORTIZ LabCoaustyn Qzhpgq1744 [address] [facility] [id number] Glucose mass conc 90 mg/dL Normal 65-99 Compreh ensive Internal Medicine Work Phone: Comment on above: PATIENT WAS FASTINGP ERFORMED BY: ORTIZ LabAleksandr CroweKydvgw6374 [address] [facility] [id number] Potassium molar conc 4.0 mmol/L Normal 3.5-5.2 Comp rehensive Internal Medicine Work Phone: Comment on above: PATIENT WAS FASTINGP ERFORMED BY: ORTIZ Crowelin6370 [facility] [id number] Protein mass conc 6.3 g/dL Normal 6.0-8.5 Compreh ensive Internal Medicine Work Phone: Comment on above: PATIENT WAS FASTINGP ERFORMED BY: ORTIZ Ameyaaustyn CroweMlajcx3674 [facility] [id number] Sodium molar conc 142 mmol/L Normal 134-144 Compreh ensive Internal Medicine Work Phone: Comment on above: PATIENT WAS FASTINGP ERFORMED BY: ORTIZ LabAleksandr CroweNlnhco0209 [address] [facility] [id number] Urea nitrogen mass conc 10 mg/dL Normal 8-27 [facility] Work Phone: Comment on above: PATIENT WAS FASTINGP ERFORMED BY: ORTIZ LabCoaustyn CroweGgrndj0263 [address] [facility] [id number] Urea nitrogen/Creatinine mass ratio 13 mg/mg Normal 11-26 [facility] Work Phone: Comment on above: PATIENT WAS FASTINGP ERFORMED BY: ORTIZ LabCoaustyn CroweIiepzn1396 [facility] [id number] MICROALBUMINOrdered By: Syst em Kitchen Clerk on 06-26-2014 Albumin DL <= 20 mg/L mass conc (U) 12.3 ug/mL Normal 0.0-17.0 [facility] Work Phone: Comment on above: PATIENT WAS FASTINGP ERFORMED BY: ORTIZ [facility] Rjaozt9570 Rodriguez RoadDublin [place] [id number] Albumin/Creatinine mass ratio (U) 7.0 {mg/g_creat} Normal 0.0-30.0 [facility] Work Phone: Comment on above: PATIENT WAS FASTINGP ERFORMED BY: ORTIZ [facility] Oocflp7966 Rodriguez RoadDublin [place] [id number] Creatinine mass conc (U) 176.5 mg/dL Normal 15.0-278.0 [facility] Work Phone: Comment on above: PATIENT WAS FASTINGP ERFORMED BY: ORTIZ [facility] Dgxanh7013 Rodriguez RoadDublin [place] [id number] TSH ([id number])Ordered By: Syste m Kitchen Clerk on 06-26-2014 Thyrotropin Qn 1.220 {uIU/mL} Normal 0.450-4.50 0 [facility] Internal Medicine Work Phone: Comment on above: PATIENT WAS FASTINGP ERFORMED BY: ORTIZ [facility] Cpiemx4998 [address] RoadDublin [place] [id number] URINALYSIS, W/ MICRO ([id number]) Ordered By: Manager Corporate Responsibility on 06-26-2014 Appearance Nom (U) Clear Normal Compre hensive Internal Medicine Work Phone: Comment on above: PATIENT WAS FASTINGP ERFORMED BY: ORTIZ [facility] Tgoyle5451 [address] RoadDublin [place] [id number] Bilirubin Ql (U) Negative Normal Comprehe nsive Internal Medicine Work Phone: Comment on above: PATIENT WAS FASTINGP ERFORMED BY: ORTIZ [facility] Mrpqlk4158 [address] RoadDublin [place] [id number] Color Nom (U) Yellow Normal Comprehensi ve Internal Medicine Work Phone: Comment on above: PATIENT WAS FASTINGP ERFORMED BY: ORTIZ [facility] Dkdmtg2888 [address] RoadDublin [place] [id number] Glucose Ql (U) Negative Normal Comprehens trupti Internal Medicine Work Phone: Comment on above: PATIENT WAS FASTINGP ERFORMED BY: CB [facility] Ljzssv0959 [address] RoadDublin [place] [id number] Hemoglobin Ql (U) Negative Normal Compreh ensive Internal Medicine Work Phone: Comment on above: PATIENT WAS FASTINGP ERFORMED BY: ORTIZ [facility] Vknzxq4512 [address] RoadDublin [place] [id number] Ketones Ql (U) Negative Normal Comprehens trupti Internal Medicine Work Phone: Comment on above: PATIENT WAS FASTINGP ERFORMED BY: ORTIZ [facility] Hasbfx7889 [address] RoadDublin [place] [id number] Leukocyte esterase Test strip Ql (U) Negative Normal [facility] Work Phone: Comment on above: PATIENT WAS FASTINGP ERFORMED BY: ORTIZ [facility] Wepgxr1728 [address] RoadDublin [place] [id number] Microscopic observation LM Nom (Urine sed) See below: Normal [facility] Work Phone: Comment on above: Microscopic was derrick cated and was performed. PATIENT WAS FASTINGP ERFORMED BY: ORTIZ [facility] Excmqh6029 [address] RoadDublin [place] [id number] Microscopic observation LM Nom (Urine sed) MICRON Normal [facility] Work Phone: Comment on above: Microscopic follows if indicated. PATIENT WAS FASTINGP ERFORMED BY: CB [facility] Oudfcp6077 [address] RoadDublin [place] [id number] Nitrite Ql (U) Negative Normal Comprehens trupti Internal Medicine Work Phone: Comment on above: PATIENT WAS FASTINGP ERFORMED BY: CB [facility] Lrzejc3281 [address] RoadDublin [place] [id number] pH (U) 5.5 [pH] Normal 5.0-7.5 [facility] Work Phone: Comment on above: PATIENT WAS FASTINGP ERFORMED BY: CB [facility] Yxfpem8209 [address] RoadDublin [place] [id number] Protein Ql (U) Negative Normal Comprehens trupti Internal Medicine Work Phone: Comment on above: PATIENT WAS FASTINGP ERFORMED BY: ORTIZ [facility] Deysqz2893 [address] RoadDublin [place] [id number] Specific gravity Relative Density (U) 1.020 1 Normal 1.005-1.03 0 [facility] Work Phone: Comment on above: PATIENT WAS FASTINGP ERFORMED BY: CB [facility] Qxowcq8172 [address] RoadDublin [place] [id number] Urobilinogen Test strip mass conc (U) 0.2 mg/dL Normal 0.0-1.9 Comprehensiv e Internal Medicine Work Phone: Comment on above: PATIENT WAS FASTINGP ERFORMED BY: CB [facility] Acgkdj4707 [address] RoadDublin [place] [id number] Vitamin D Hydroxy (09541)Ord ered By: Manager Corporate Responsibility on 06-26-2014 25-Hydroxyvitamin D2+25-Hydroxyvitamin D3 mass conc 38.9 ng/mL Normal 30.0-100.0 [facility] Work Phone: Comment on above: Vitamin D deficiency has been defined by the [place] of[place]icine and an Endocrine Society practice guideline as alevel of serum 25-OH vitamin D less than 20 ng/mL (1,2).The Endocrine Society went on to further define vitamin Dinsufficiency as a level between 21 and 29 ng/mL (2).1. IOM ([place] of Medicine). 2010. Dietary reference intakes for calcium and D. [place]: The National Academies Press.2. Allie MF, Emile NC, Jaja-Mg POOLE, et al. Evaluation, treatment, and prevention of vitamin D deficiency: an Endocrine Society clinical practice guideline. JCEM. 2010; 96(7):1911-30. PATIENT WAS FASTINGP ERFORMED BY: CB [facility] Isehlv6322 [address] RoadDublin [place] [id number] URINE IBRAHIMA CULTURE-IDENTIFICA [place] (77467)Ordered By: Manager Corporate Responsibility on 04-17-2014 Bacteria identified Cx Nom (U) Escherichia coli Abnormal [facility] Work Phone: Comment on above: Greater than 100,000 colony forming units per mL PATIENT NOT FASTINGP ERFORMED BY: [facility] Wzukad7262 [facility] [id number] Information: [id number] Bacteria identified Cx Nom (U) Final report Abnormal [facility] Work Phone: Comment on above: PATIENT NOT FASTINGP ERFORMED BY: [facility] Dlofgf4352 [facility] [id number] Information: [id number] Other Antibiotic [facility] prehensive Internal Medicine Work Phone: Comment on above: S = Susceptibl e; I = Intermediate; R = Resistant P = Positive; N = Negative MICS are expressed in micrograms per mL Antibiotic RSLT#1 RSLT#2 RSLT#3 RSLT#4Amoxicillin/Clavulanic Acid SAmpicillin SCefepime SCeftriaxone SCefuroxime SCephalothin SCiprofloxacin SErtapenem SGentamicin SImipenem SLevofloxacin SNitrofurantoin SPiperacillin STetracycline STobramycin STrimethoprim/Sulfa S PATIENT NOT FASTINGP ERFORMED BY: [facility]Be[facility] [employer] Aojhtb2579 [facility] [id number] Information: [id number] Urinalysis, Office (40559)Or dered By: Alyson Dixon on 04-17-2014 Bilirubin [...] Medicine Work Phone: CBC WITH MANUAL DIFF (47997) Ordered By: Manager Corporate Responsibility on 04-06-2014 Basophils #/vol (Bld) 0.0 {x10E3/uL} Normal 0.0-0.2 [facility] Work Phone: Comment on above: PATIENT NOT FASTINGP ERFORMED BY: [facility] Bdtccn9[address] Signum BiosciencesNovant Health [facility] [id number] Information: [id number] Basophils/100 WBC (Bld) 0 % Normal 0-3 [facility] Work Phone: Comment on above: PATIENT NOT FASTINGP ERFORMED BY: CB [facility] Gbxhho0973 [address] Signum BiosciencesNovant Health [facility] [id number] Information: [id number] Eosinophils #/vol (Bld) 0.1 {x10E3/uL} Normal 0.0-0.4 [facility] Work Phone: Comment on above: PATIENT NOT FASTINGP ERFORMED BY: [employer] [facility] Uaoajs0196 [address] Signum BiosciencesNov[facility] Health [facility] [id number] Information: [id number],[id number] Eosinophils/100 WBC (Bld) 2 % Normal 0-5 [facility] Work Phone: Comment on above: PATIENT NOT FASTINGP ERFORMED BY: [facility] Daxrwt4466 [facility] [id number] Information: [id number],S01901 Erythrocyte distribution width Ratio (RBC) 13.5 % Normal 12.3-15.4 [facility] Work Phone: Comment on above: PATIENT NOT FASTINGP ERFORMED BY: ORTIZ [facility] Megddi9953 [facility] [id number] Information: [id number] Hematocrit Volume Fraction (Bld) 38.1 % Normal 34.0-46.6 [facility] Work Phone: Comment on above: PATIENT NOT FASTINGP ERFORMED BY: [facility] Jixkxa0695 [facility] [id number] Information: [id number] Hemoglobin mass conc (Bld) 12.8 g/dL Normal 11.1-15.9 [facility] Work Phone: Comment on above: PATIENT NOT FASTINGP ERFORMED BY: [facility] Ytgsdr7135 [facility] [id number] Information: [id number],[id number] Immature granulocytes #/vol (Bld) 0.0 {x10E3/uL} Normal 0.0-0.1 [facility] Work Phone: Comment on above: PATIENT NOT FASTINGP ERFORMED BY: LabCoSt. Luke's Warren HospitalGqyixk5373 [facility] [id number] Information: [id number] Immature granulocytes/100 WBC (Bld) 0 % Normal 0-2 [facility] Work Phone: Comment on above: PATIENT NOT FASTINGP ERFORMED BY: [facility] Boqsao3581 [facility] [id number] Information: [id number],[id number] Lymphocytes #/vol (Bld) 1.5 {x10E3/uL} Normal 0.7-3.1 [facility] Work Phone: Comment on above: PATIENT NOT FASTINGP ERFORMED BY: [facility] Oqrspr0801 [facility] [id number] Information: [id number],[id number] Lymphocytes/100 WBC (Bld) 26 % Normal 14-46 [facility] Work Phone: Comment on above: PATIENT NOT FASTINGP ERFORMED BY: CB [facility] Bkrmit0770 [facility] [id number] Information: [id number],[id number] MCH Entitic mass (RBC) 31.1 pg Normal 26.6-33.0 [facility] Internal Medicine Work Phone: Comment on above: PATIENT NOT FASTINGP ERFORMED BY: [place] 6263970 [facility] [id number] Information: [id number] MCHC mass conc (RBC) 33.6 g/dL Normal 31.5-35.7 [facility] Internal Medicine Work Phone: Comment on above: PATIENT NOT FASTINGP ERFORMED BY: [address] [id number] Information: [id number],[id number] MCV Entitic volume (RBC) 93 fL Normal 79-97 [facility] Internal Medicine Work Phone: Comment on above: PATIENT NOT FASTINGP ERFORMED BY: [address] [id number] Information: [id number] Monocytes #/vol (Bld) 0.5 {x10E3/uL} Normal 0.1-0.9 [facility] Work Phone: Comment on above: PATIENT NOT FASTINGP ERFORMED BY: [place] 6263970 [facility] [id number] Information: 478056,[id number] Monocytes/100 WBC (Bld) 9 % Normal 4-12 [facility] Work Phone: Comment on above: PATIENT NOT FASTINGP ERFORMED BY: [place] 6263970 [facility] [id number] Information: [id number],[id number] Neutrophils #/vol (Bld) 3.5 {x10E3/uL} Normal 1.4-7.0 [facility] Work Phone: Comment on above: PATIENT NOT FASTINGP ERFORMED BY: [address] [id number] Information: [id number],[id number] Neutrophils/100 WBC (Bld) 63 % Normal 40-74 [facility] Medicine Work Phone: Comment on above: PATIENT NOT FASTINGP ERFORMED BY: ORTIZ Chester6370 [facility] [id number] Information: [id number],[id number] Platelets #/vol (Bld) 193 {x10E3/uL} Normal 150-379 [facility] Work Phone: Comment on above: PATIENT NOT FASTINGP ERFORMED BY: ORTIZ Hou Lmkwdj[address] [id number] Information: [id number] RBC #/vol (Bld) 4.12 {x10E6/uL} Normal 3.77-5.28 [facility] Internal Medicine Work Phone: Comment on above: PATIENT NOT FASTINGP ERFORMED BY: ORTIZ Crowelin6370 [facility] [id number] Information: [id number] WBC #/vol (Bld) 5.6 {x10E3/uL} Normal 3.4-10.8 [facility] Internal Medicine Work Phone: Comment on above: PATIENT NOT FASTINGP ERFORMED BY: ORTIZ Crowelin6370 [facility] [id number] Information: [id number] LIPID PANEL (51342)Ordered B y: Manager Corporate Responsibility on 04-06-2014 Cholesterol in HDL mass conc 54 mg/dL Normal [facility] Medicine Work Phone: Comment on above: According to ATP-III Guidelines, HDL-C >59 mg/dL is considered anegative risk factor for CHD. PATIENT NOT FASTINGP ERFORMED BY: ORTIZ Crowelin6370 [facility] [id number] Cholesterol in LDL mass conc 63 mg/dL Normal 0-99 [facility] Medicine Work Phone: Comment on above: PATIENT NOT FASTINGP ERFORMED BY: CB [facility] Mvmvfe2648 [address] RoadDublin [place] [id number] Cholesterol in LDL/Cholesterol in HDL mass ratio 1.2 {ratio_units} Normal 0.0-3.2 [facility] Work Phone: Comment on above: PATIENT NOT FASTINGP ERFORMED BY: ORTIZ LabAleksandr Bwdven7866 [address] RoadDublin [place] [id number] Cholesterol in VLDL mass conc 41 mg/dL Abnormal 5-40 [facility] Medicine Work Phone: Comment on above: PATIENT NOT FASTINGP ERFORMED BY: ORTIZ [facility] Jvlmlq6592 [address] RoadDublin [place] [id number] Cholesterol mass conc 158 mg/dL Normal 100-199 Com prehensive Internal Medicine Work Phone: Comment on above: PATIENT NOT FASTINGP ERFORMED BY: ORTIZ Ameyaaustyn Dvtmrq5581 [address] RoadDublin [place] [id number] Triglyceride mass conc 206 mg/dL Abnormal 0-149 [facility] Work Phone: Comment on above: PATIENT NOT FASTINGP ERFORMED BY: ORTIZ [facility] Pspmru4517 [address] RoadDublin [place] [id number] METABOLIC PANEL, COMPREHENSI VE (68296)Ordered By: Manager Corporate Responsibility on 04-06-2014 Albumin mass conc 4.3 g/dL Normal 3.5-4.8 Compreh ensive Internal Medicine Work Phone: Comment on above: PATIENT NOT FASTINGP ERFORMED BY: ORTIZ [facility] Svoyri0267 [address] RoadDublin [place] [id number] Albumin/Globulin mass ratio 2.2 {ratio} Normal 1.1-2.5 [facility] Work Phone: Comment on above: PATIENT NOT FASTINGP ERFORMED BY: ORTIZ [facility] Skefxb1776 [address] RoadDublin [place] [id number] ALP enzyme act/vol 87 [iU]/L Normal 39-117 Compre [facility] Internal Medicine Work Phone: Comment on above: PATIENT NOT FASTINGP ERFORMED BY: ORTIZ [facility] Gcnbkk1603 [address] RoadDublin [place] [id number] ALT enzyme act/vol 14 [iU]/L Normal 0-32 Compre [facility] Internal Medicine Work Phone: Comment on above: PATIENT NOT FASTINGP ERFORMED BY: CB [facility] Hkvcpz7555 [address] RoadDublin [place] [id number] AST enzyme act/vol 18 [iU]/L Normal 0-40 Compre [facility] Internal Medicine Work Phone: Comment on above: PATIENT NOT FASTINGP ERFORMED BY: CB [facility] Xrevsl9736 [address] RoadLifecare Hospitals [facility] [place]inain [place] [id number] Bilirubin mass conc 0.3 mg/dL Normal 0.0-1.2 Compr ensive Internal Medicine Work Phone: Comment on above: PATIENT NOT FASTINGP ERFORMED BY: CB [facility] Izappa3500 Rodriguez RoadNovant Health [facility] [id number] Calcium mass conc 10.0 mg/dL Normal 8.6-10.2 Compreh [facility] Internal [facility] Work Phone: Comment on above: PATIENT NOT FASTINGP ERFORMED BY: CB [facility] Mxzhnp8442 [address] [facility] [id number] Chloride molar conc 101 mmol/L Normal 97-108 Compr ensive Internal Medicine Work Phone: Comment on above: PATIENT NOT FASTINGP ERFORMED BY: CB [facility] Pnspwq3926 [address] [facility] [id number] CO2 molar conc 28 mmol/L Normal 18-29 Comprehens trupti Internal Medicine Work Phone: Comment on above: PATIENT NOT FASTINGP ERFORMED BY: CB [facility] Irlacq8659 [address] RoadLifecare Hospitals [facility] [place]ain [place] [id number] Creatinine mass conc 0.73 mg/dL Normal 0.57-1.00 Comp [facility] centerensive Internal Medicine Work Phone: Comment on above: PATIENT NOT FASTINGP ERFORMED BY: CB [facility] Fpmkmg4082 [address] [facility] [place] [id number] GFR/1.73 sq M predicted among blacks CKD-EPI vol rate/area (S/P/Bld) 94 mL/min/1.73 Normal [facility] Work Phone: Comment on above: PATIENT NOT FASTINGP ERFORMED BY: CB [facility] Esoqfd5121 [address] RoadDublin [place] [id number] GFR/1.73 sq M predicted among non-blacks CKD-EPI vol rate/area (S/P/Bld) 81 mL/min/1.73 Normal Comprehensiv e Internal Medicine Work Phone: Comment on above: PATIENT NOT FASTINGP ERFORMED BY: CB [facility] Macfzi9979 [address] Roadblin [place] [id number] Globulin mass conc (S) 2.0 g/dL Normal 1.5-4.5 Co mprehensive Internal Medicine Work Phone: Comment on above: PATIENT NOT FASTINGP ERFORMED BY: CB [facility] Zhzihk5453 [address] RoadDublin [place] [id number] Glucose mass conc 87 mg/dL Normal 65-99 Compreh ensive Internal Medicine Work Phone: Comment on above: PATIENT NOT FASTINGP ERFORMED BY: CB [facility] Pjmmck2255 [address] RoadDublin [place] [id number] Potassium molar conc 5.0 mmol/L Normal 3.5-5.2 Comp rehensive Internal Medicine Work Phone: Comment on above: PATIENT NOT FASTINGP ERFORMED BY: CB [facility] Cgpeas6360 [address] RoadDublin [place] [id number] Protein mass conc 6.3 g/dL Normal 6.0-8.5 Compreh ensive Internal Medicine Work Phone: Comment on above: PATIENT NOT FASTINGP ERFORMED BY: CB [facility] Qpwxws6034 [address] RoadDublin [place] [id number] Sodium molar conc 142 mmol/L Normal 134-144 Compreh ensive Internal Medicine Work Phone: Comment on above: PATIENT NOT FASTINGP ERFORMED BY: CB [facility] Ahbxlf6740 [address] RoadDublin [place] [id number] Urea nitrogen mass conc 12 mg/dL Normal 8-27 [facility] Work Phone: Comment on above: PATIENT NOT FASTINGP ERFORMED BY: ORTIZ [facility] Nfquvd3981 [address] RoadDublin [place] [id number] Urea nitrogen/Creatinine mass ratio 16 mg/mg Normal 11-26 [facility] Work Phone: Comment on above: PATIENT NOT FASTINGP ERFORMED BY: ORTIZ [facility] Butbfo7273 [address] RoadDublin [place] [id number] TSH ([id number])Ordered By: Samantha m Kitchen Clerk on 04-06-2014 Thyrotropin Qn 0.748 {uIU/mL} Normal 0.450-4.50 0 [facility] Work Phone: Comment on above: PATIENT NOT FASTINGP ERFORMED BY: [facility] Pdkaes1631 Rodriguez AURSOSblin [place] [id number] Vitamin D Hydroxy (06048)Ord ered By: Manager Corporate Responsibility on 04-06-2014 25-Hydroxyvitamin D2+25-Hydroxyvitamin D3 mass conc 29.5 ng/mL Abnormal 30.0-100.0 [facility] Work Phone: Comment on above: Vitamin D deficiency has been defined by the [place] of[place]icine and an Endocrine Society practice guideline as alevel of serum 25-OH vitamin D less than 20 ng/mL (1,2).The Endocrine Society went on to further define vitamin Dinsufficiency as a level between 21 and 29 ng/mL (2).1. IOM ([place] of Medicine). 2010. Dietary reference intakes for calcium and D. [place]: The National Academies Press.2. Allie MF, Emile PONCE, Natalie POOLE, et al. Evaluation, treatment, and prevention of vitamin D deficiency: an Endocrine Society clinical practice guideline. JCEM. 2010; 96(7):1911-30. PATIENT NOT FASTINGP ERFORMED BY: [facility] Erjhuc1125 Rodriguez RoadDublin [place] [id number] CBC WITH MANUAL DIFF (21572) Ordered By: Manager Corporate Responsibility on 12-22-2013 Basophils #/vol (Bld) 0.0 {x10E3/uL} Normal 0.0-0.2 [facility] Work Phone: Comment on above: PATIENT NOT FASTINGP ERFORMED BY: ORTIZ [facility] Bnscpu9198 [address] [facility] [id number] Information: [id number], [id number] Basophils/100 WBC (Bld) 0 % Normal 0-3 [facility] Work Phone: Comment on above: PATIENT NOT FASTINGP ERFORMED BY: [facility] Ducxuh7509 [address] [facility] [id number] Information: [id number] [id number] Eosinophils #/vol (Bld) 0.1 {x10E3/uL} Normal 0.0-0.4 [facility] Work Phone: Comment on above: PATIENT NOT FASTINGP ERFORMED BY: [facility] Ojsevq2696 [address] [facility] [id number] Information: [id number], 650830 Eosinophils/100 WBC (Bld) 2 % Normal 0-5 [facility] Work Phone: Comment on above: PATIENT NOT FASTINGP ERFORMED BY: [facility] Zqxhiv7065 [address] [facility] [id number] Information: G74952, 571357 Erythrocyte distribution width Ratio (RBC) 13.7 % Normal 12.3-15.4 [facility] Work Phone: Comment on above: PATIENT NOT FASTINGP ERFORMED BY: [facility] Hrifui8073 [facility] [id number] Information: G29472, 480007 Hematocrit Volume Fraction (Bld) 38.4 % Normal 34.0-46.6 [facility] Work Phone: Comment on above: PATIENT NOT FASTINGP ERFORMED BY: [facility] Aeifwp4512 [address] [facility] [id number] Information: J34104, [id number] Hemoglobin mass conc (Bld) 12.8 g/dL Normal 11.1-15.9 [facility] Work Phone: Comment on above: PATIENT NOT FASTINGP ERFORMED BY: [facility] Fuqhjh4053 [address] [facility] [id number] Information: [id number], [id number] Immature granulocytes #/vol (Bld) 0.0 {x10E3/uL} Normal 0.0-0.1 [facility] Work Phone: Comment on above: PATIENT NOT FASTINGP ERFORMED BY: ORTIZ [facility] Bdiohn5947 [facility] [id number] Information: M98920, 789567 Immature granulocytes/100 WBC (Bld) 0 % Normal 0-2 [facility] Work Phone: Comment on above: PATIENT NOT FASTINGP ERFORMED BY: LabCoSt. Luke's Warren HospitalAcwywk6843 [facility] [id number] Information: S30010, [id number] Lymphocytes #/vol (Bld) 1.1 {x10E3/uL} Normal 0.7-3.1 [facility] Work Phone: Comment on above: PATIENT NOT FASTINGP ERFORMED BY: [facility] Lkzphy0144 [facility] [id number] Information: [id number], 140443 Lymphocytes/100 WBC (Bld) 22 % Normal 14-46 [facility] Work Phone: Comment on above: PATIENT NOT FASTINGP ERFORMED BY: [facility] Sqglbh7744 [facility] [id number] Information: [id number], 401975 MCH Entitic mass (RBC) 30.6 pg Normal 26.6-33.0 [facility] Internal Medicine Work Phone: Comment on above: PATIENT NOT FASTINGP ERFORMED BY: [facility] Gsfhoj4072 [facility] [id number] Information: C97663, 263981 MCHC mass conc (RBC) 33.3 g/dL Normal 31.5-35.7 [facility] Internal Medicine Work Phone: Comment on above: PATIENT NOT FASTINGP ERFORMED BY: [facility] Iuveeh2660 [facility] [id number] Information: G06039, 613912 MCV Entitic volume (RBC) 92 fL Normal 79-97 [facility] Work Phone: Comment on above: PATIENT NOT FASTINGP ERFORMED BY: ORTIZ RobledoCoaustyn ChesterQxziza9662 [facility] [id number] Information: [id number], 830365 Monocytes #/vol (Bld) 0.4 {x10E3/uL} Normal 0.1-0.9 [facility] Work Phone: Comment on above: PATIENT NOT FASTINGP ERFORMED BY: ORTIZ LabCoDeborah Ville 7575270 [facility] [id number] Information: [id number], 569627 Monocytes/100 WBC (Bld) 8 % Normal 4-12 [facility] Work Phone: Comment on above: PATIENT NOT FASTINGP ERFORMED BY: [facility]6370 [facility] [id number] Information: Q97478, 735426 Neutrophils #/vol (Bld) 3.3 {x10E3/uL} Normal 1.4-7.0 [facility] Work Phone: Comment on above: PATIENT NOT FASTINGP ERFORMED BY: ORTIZ Hou Obcoyc0954 [facility] [id number] Information: [id number], 144001 Neutrophils/100 WBC (Bld) 68 % Normal 40-74 [facility] Work Phone: Comment on above: PATIENT NOT FASTINGP ERFORMED BY: LabCoSt. Luke's Warren HospitalSkpfbo0444 [facility] [id number] Information: [id number], 781143 Platelets #/vol (Bld) 190 {x10E3/uL} Normal 155-379 [facility] Work Phone: Comment on above: PATIENT NOT FASTINGP ERFORMED BY: LabCoSt. Luke's Warren HospitalAfgtwl5149 [facility] [id number] Information: [id number], [id number] RBC #/vol (Bld) 4.18 {x10E6/uL} Normal 3.77-5.28 [facility] Internal Medicine Work Phone: Comment on above: PATIENT NOT FASTINGP ERFORMED BY: ORTIZ Chester6370 [facility] [id number] Information: [id number], 178233 WBC #/vol (Bld) 4.8 {x10E3/uL} Normal 3.4-10.8 [facility] Internal Medicine Work Phone: Comment on above: PATIENT NOT FASTINGP ERFORMED BY: ORTIZ Hou Fwkext4006 [facility] [id number] Information: A45458, 384850 D-Dimer (12893)Ordered By: Dc keithtem Kitchen Clerk on 12-22-2013 D-Dimer (12065) 0.40 {ug_FEU/mL} Normal 0.00-0.49 [facility] Internal Medicine Work Phone: Comment on above: In conjunction with a non-high clinical probability assessment, anormal (<0.50 ug FEU/mL) result excludes deep vein thrombosis (DVT)and pulmonary embolism (PE) with high sensitivity. PATIENT NOT FASTINGP ERFORMED BY: ORTIZ Chester6370 [facility] [id number] PT (Prothrobim Time) (67075) Ordered By: Manager Corporate Responsibility on 12-22-2013 INR Coag RelTime (PPP) 1.0 {INR} Normal 0.8-1.2 [facility] Internal Medicine Work Phone: Comment on above: Reference interval i s for non-anticoagulated patients. . Suggested INR therapeutic range for Vitamin K antagonist therapy: Standard Dose (moderate intensity therapeutic range): 2.0 - 3.0 Higher intensity therapeutic range 2.5 - 3.5 PATIENT NOT FASTINGP ERFORMED BY: ORTIZ Hou Dhwpry2800 [facility] [id number] Prothrombin time (PT) Coag time (PPP) 10.6 {sec} Normal 9.1-12.0 [facility] Internal Medicine Work Phone: Comment on above: PATIENT NOT FASTINGP ERFORMED BY: [facility] [facility] [place] [id number] PTT (Activated Partial Throm boplastin Time) (16434)Ordered By: Manager Corporate Responsibility on 12-22-2013 aPTT Coag time (PPP) 26 {sec} Normal 24-33 [facility] Internal Medicine Work Phone: Comment on above: This test has not be en validated for monitoring unfractionated heparintherapy. aPTT-based therapeutic ranges for unfractionated heparintherapy have not been established. For general guidelines onHeparin monitoring, refer to the [facility] Directory of Services. PATIENT NOT FASTINGP ERFORMED BY: [facility] SurgicalCibola General HospitalWxnpgs5522 [facility] [id number] MICROALBUMINOrdered By: Syst em Kitchen Clerk on 12-05-2013 Albumin DL <= 20 mg/L mass conc (U) 23.2 ug/mL Abnormal 0.0-17.0 [facility] Work Phone: Comment on above: PATIENT NOT FASTINGP ERFORMED BY: [facility]6[address] [facility] [place] [id number] Albumin/Creatinine mass ratio (U) 14.1 {mg/g_creat} Normal 0.0-30.0 [facility] Work Phone: Comment on above: PATIENT NOT FASTINGP ERFORMED BY: [facility]6370 [facility] [id number] Creatinine mass conc (U) 164.8 mg/dL Normal 15.0-278.0 [facility] Work Phone: Comment on above: PATIENT NOT FASTINGP ERFORMED BY: [facility]6370 [facility] [place] [place] [id number] URINALYSIS, W/ MICRO (01865) Ordered By: Manager Corporate Responsibility on 12-05-2013 Appearance Nom (U) Cloudy Abnormal [facility]pre [facility] Work Phone: Comment on above: PATIENT NOT FASTINGP ERFORMED BY: [facility]6370 [facility] [id number] Information: [id number] Bilirubin Ql (U) Negative Normal Comprehe nsive Internal Medicine Work Phone: Comment on above: PATIENT NOT FASTINGP ERFORMED BY: ORTIZ [facility] Zdkcro2887 [address] RoadNovant Health [facility] [id number] Information: [id number] Color Nom (U) Yellow Normal Comprehensi ve Internal Medicine Work Phone: Comment on above: PATIENT NOT FASTINGP ERFORMED BY: ORTIZ [facility] Zcdrpl1081 [address] [facility] [id number] Information: [id number] Glucose Ql (U) Negative Normal Comprehens trupti Internal Medicine Work Phone: Comment on above: PATIENT NOT FASTINGP ERFORMED BY: ORTIZ LabKellierp Dxkmri2233 Rodriguez RoadNovant Health New [facility] [id number] Information: [id number] Hemoglobin Ql (U) Negative Normal Compreh ensive Internal Medicine Work Phone: Comment on above: PATIENT NOT FASTINGP ERFORMED BY: ORTIZ [facility] Slxvhn6590 [address] [facility] [id number] Information: [id number] Ketones Ql (U) Negative Normal Comprehens trupti Internal Medicine Work Phone: Comment on above: PATIENT NOT FASTINGP ERFORMED BY: ORTIZ LabKellierp Tdawzm0932 [address] [facility] [id number] Information: F11262 Leukocyte esterase Test strip Ql (U) Negative Normal [facility] Work Phone: Comment on above: PATIENT NOT FASTINGP ERFORMED BY: ORTIZ [facility] Awjohg6062 [address] [facility] [id number] Information: [id number] Microscopic observation LM Nom (Urine sed) See below: Normal [facility] Work Phone: Comment on above: PATIENT NOT FASTINGP ERFORMED BY: ORTIZ [facility] Onongn5939 [address] [facility] [id number] Information: [id number] Microscopic observation LM Nom (Urine sed) MICRON Normal [facility] Work Phone: Comment on above: Microscopic follows if indicated. PATIENT NOT FASTINGP ERFORMED BY: ORTIZ [facility] Ymlszl5671 [address] RoadLifecare Hospitals [facility] [place]ain [place] [id number] Information: [id number] Nitrite Ql (U) Negative Normal Comprehens trupti Internal Medicine Work Phone: Comment on above: PATIENT NOT FASTINGP ERFORMED BY: ORTIZ [facility] Wiglwf1724 [address] RoadLifecare Hospitals [facility] [place]ain [place] [id number] Information: [id number] pH (U) 5.0 [pH] Normal 5.0-7.5 [facility] Work Phone: Comment on above: PATIENT NOT FASTINGP ERFORMED BY: ORTIZ [facility] Mnsvej4643 Rodriguez Roadblin [place] [id number] Information: [id number] Protein Ql (U) Negative Normal Comprehens trupti Internal Medicine Work Phone: Comment on above: PATIENT NOT FASTINGP ERFORMED BY: [facility] Ffzuqm6613 [address] [facility] [id number] Information: [id number] Specific gravity Relative Density (U) 1.017 1 Normal 1.005-1.03 0 [facility] Work Phone: Comment on above: PATIENT NOT FASTINGP ERFORMED BY: ORTIZ Hou Hjgseo9968 [address] [facility] [id number] Information: [id number] Urobilinogen Test strip mass conc (U) 0.2 mg/dL Normal 0.0-1.9 Comprehensiv e Internal Medicine Work Phone: Comment on above: PATIENT NOT FASTINGP ERFORMED BY: [facility] Xyripc3580 [address] [facility] [place] [id number] Information: [id number] CBC WITH MANUAL DIFF (15830) Ordered By: Manager Corporate Responsibility on 12-01-2013 Basophils #/vol (Bld) 0.0 {x10E3/uL} Normal 0.0-0.2 [facility] Work Phone: Comment on above: PATIENT WAS FASTINGP ERFORMED BY: [facility] Hqqzun7379 [facility] [id number] Information: [id number] Basophils/100 WBC (Bld) 0 % Normal 0-3 [facility] Work Phone: Comment on above: PATIENT WAS FASTINGP ERFORMED BY: [place] 6263970 [facility] [id number] Information: [id number] Eosinophils #/vol (Bld) 0.1 {x10E3/uL} Normal 0.0-0.4 [facility] Work Phone: Comment on above: PATIENT WAS FASTINGP ERFORMED BY: [address] [id number] Information: 139006,[id number] Eosinophils/100 WBC (Bld) 1 % Normal 0-5 [facility] Work Phone: Comment on above: PATIENT WAS FASTINGP ERFORMED BY: [address] [id number] Information: [id number],[id number] Erythrocyte distribution width Ratio (RBC) 13.5 % Normal 12.3-15.4 [facility] Work Phone: Comment on above: PATIENT WAS FASTINGP ERFORMED BY: [address] [id number] Information: [id number] Hematocrit Volume Fraction (Bld) 40.8 % Normal 34.0-46.6 [facility] Work Phone: Comment on above: PATIENT WAS FASTINGP ERFORMED BY: [place] 6263970 [facility] [id number] Information: [id number] Hemoglobin mass conc (Bld) 13.2 g/dL Normal 11.1-15.9 [facility] Work Phone: Comment on above: PATIENT WAS FASTINGP ERFORMED BY: [address] [id number] Information: 518071,[id number] Immature granulocytes #/vol (Bld) 0.0 {x10E3/uL} Normal 0.0-0.1 [facility] Work Phone: Comment on above: PATIENT WAS FASTINGP ERFORMED BY: [place] 6263970 [facility] [id number] Information: [id number] Immature granulocytes/100 WBC (Bld) 0 % Normal 0-2 [facility] Work Phone: Comment on above: PATIENT WAS FASTINGP ERFORMED BY: [address] [id number] Information: 245653,[id number] Lymphocytes #/vol (Bld) 1.4 {x10E3/uL} Normal 0.7-3.1 [facility] Work Phone: Comment on above: PATIENT WAS FASTINGP ERFORMED BY: [address] [id number] Information: [id number] Lymphocytes/100 WBC (Bld) 18 % Normal 14-46 [facility] Work Phone: Comment on above: PATIENT WAS FASTINGP ERFORMED BY: [address] [id number] Information: [id number] MCH Entitic mass (RBC) 30.1 pg Normal 26.6-33.0 [facility] Internal Medicine Work Phone: Comment on above: PATIENT WAS FASTINGP ERFORMED BY: [address] [id number] Information: [id number],[id number] MCHC mass conc (RBC) 32.4 g/dL Normal 31.5-35.7 [facility] Internal Medicine Work Phone: Comment on above: PATIENT WAS FASTINGP ERFORMED BY: [place] 6263970 [facility] [id number] Information: 410372,[id number] MCV Entitic volume (RBC) 93 fL Normal 79-97 [facility] Work Phone: Comment on above: PATIENT WAS FASTINGP ERFORMED BY: [place] 6263970 [facility] [id number] Information: [id number],[id number] Monocytes #/vol (Bld) 0.6 {x10E3/uL} Normal 0.1-0.9 [facility] Work Phone: Comment on above: PATIENT WAS FASTINGP ERFORMED BY: [address] [id number] Information: [id number] Monocytes/100 WBC (Bld) 7 % Normal 4-12 [facility] Work Phone: Comment on above: PATIENT WAS FASTINGP ERFORMED BY: [address] [id number] Information: 752632,[id number] Neutrophils #/vol (Bld) 5.9 {x10E3/uL} Normal 1.4-7.0 [facility] Work Phone: Comment on above: PATIENT WAS FASTINGP ERFORMED BY: [address] [id number] Information: 544203,[id number] Neutrophils/100 WBC (Bld) 74 % Normal 40-74 [facility] Work Phone: Comment on above: PATIENT WAS FASTINGP ERFORMED BY: [address] [id number] Information: [id number] Platelets #/vol (Bld) 225 {x10E3/uL} Normal 155-379 [facility] Work Phone: Comment on above: PATIENT WAS FASTINGP ERFORMED BY: [address] [id number] Information: [id number] RBC #/vol (Bld) 4.38 {x10E6/uL} Normal 3.77-5.28 Comp [facility] Internal Medicine Work Phone: Comment on above: PATIENT WAS FASTINGP ERFORMED BY: ORTIZ Nilda Chester6370 [facility] [id number] Information: 710623,[id number] WBC #/vol (Bld) 8.0 {x10E3/uL} Normal 3.4-10.8 [facility] Internal Medicine Work Phone: Comment on above: PATIENT WAS FASTINGP ERFORMED BY: ORTIZ Nilda Chester6370 [facility] [id number] Information: [id number] LIPID PANEL (01623)Ordered B y: Manager Corporate Responsibility on 12-01-2013 Cholesterol in HDL mass conc 47 mg/dL Normal [facility] Work Phone: Comment on above: According to ATP-III Guidelines, HDL-C >59 mg/dL is considered anegative risk factor for CHD. PATIENT WAS FASTINGP ERFORMED BY: ORTIZ Nilda Chester6370 [facility] [id number] Cholesterol in LDL mass conc 50 mg/dL Normal 0-99 [facility] Work Phone: Comment on above: PATIENT WAS FASTINGP ERFORMED BY: ORTIZ Nilda Chester6370 [facility] [id number] Cholesterol in LDL/Cholesterol in HDL mass ratio 1.1 {ratio_units} Normal 0.0-3.2 [facility] Work Phone: Comment on above: PATIENT WAS FASTINGP ERFORMED BY: ORTIZ Nilda Crowelin6370 [facility] [id number] Cholesterol in VLDL mass conc 35 mg/dL Normal 5-40 [facility] Work Phone: Comment on above: PATIENT WAS FASTINGP ERFORMED BY: ORTIZ Nilda Crowelin6370 [facility] [id number] Cholesterol mass conc 132 mg/dL Normal 100-199 [facility] Internal Medicine Work Phone: Comment on above: PATIENT WAS FASTINGP ERFORMED BY: ORTIZ Nilda Crowelin6370 [facility] [id number] Triglyceride mass conc 177 mg/dL Abnormal 0-149 Co mprehensive Internal Medicine Work Phone: Comment on above: PATIENT WAS FASTINGP ERFORMED BY: [facility]6370 [facility] [id number] Lab Report: Ordered by Dr. Saritha delgado 12-01-2013 Alanine aminotransferase (ALT) 10 U/L Invalid Interpretation Code [facility] Work Phone: Alkaline phosphatase (ALP) 76 U/L Invalid Interpretation Code [facility] Work Phone: Aspartate aminotransferase (AST) 13 U/L Invalid Interpretation Code [facility] Work Phone: METABOLIC PANEL, COMPREHENSI VE (82226)Ordered By: Manager Corporate Responsibility on 12-01-2013 Albumin mass conc 4.5 g/dL Normal 3.5-4.8 Compreh [facility] Internal Medicine Work Phone: Comment on above: PATIENT WAS FASTINGP ERFORMED BY: [facility]6370 [facility] [id number] Albumin/Globulin mass ratio 2.1 {ratio} Normal 1.1-2.5 [facility] Internal Medicine Work Phone: Comment on above: PATIENT WAS FASTINGP ERFORMED BY: [facility]6370 [facility] [id number] ALP enzyme act/vol 76 [iU]/L Normal 39-117 [facility] Internal Medicine Work Phone: Comment on above: PATIENT WAS FASTINGP ERFORMED BY: [facility]6370 [facility] [id number] ALT enzyme act/vol 10 [iU]/L Normal 0-32 [facility] Internal Medicine Work Phone: Comment on above: PATIENT WAS FASTINGP ERFORMED BY: [facility]6370 [facility] [id number] AST enzyme act/vol 13 [iU]/L Normal 0-40 [facility] Internal Medicine Work Phone: Comment on above: PATIENT WAS FASTINGP ERFORMED BY: ORTIZ [facility] Qlqqwc3352 Rodriguez RoadDublin [place] [id number] Bilirubin mass conc 0.3 mg/dL Normal 0.0-1.2 Compr ensive Internal Medicine Work Phone: Comment on above: PATIENT WAS FASTINGP ERFORMED BY: ORTIZ [facility] Izisze6176 Rodriguez RoadDublin [place] [id number] Calcium mass conc 9.9 mg/dL Normal 8.6-10.2 Compreh ensive Internal Medicine Work Phone: Comment on above: PATIENT WAS FASTINGP ERFORMED BY: CB [facility] Igxuts9523 Rodriguez RoadLifecare Hospitals [facility] [place]ain [place] [id number] Chloride molar conc 101 mmol/L Normal 97-108 Compr ensive Internal Medicine Work Phone: Comment on above: PATIENT WAS FASTINGP ERFORMED BY: ORTIZ [facility] Jopeqa3681 Rodriguez RoadLifecare Hospitals [facility] [place]ain [place] [id number] CO2 molar conc 27 mmol/L Normal 19-28 Comprehens trupti Internal Medicine Work Phone: Comment on above: PATIENT WAS FASTINGP ERFORMED BY: ORTIZ [facility] Vcjmfy6406 Rodriguze RoadLifecare Hospitals [facility] [place] [id number] Creatinine mass conc 0.97 mg/dL Normal 0.57-1.00 Comp [facility] centerensive Internal Medicine Work Phone: Comment on above: PATIENT WAS FASTINGP ERFORMED BY: ORTIZ [facility] Kmdqyj8827 [address] [facility] [place] [id number] GFR/1.73 sq M predicted among blacks CKD-EPI vol rate/area (S/P/Bld) 67 mL/min/1.73 Normal [facility] Work Phone: Comment on above: PATIENT WAS FASTINGP ERFORMED BY: CB [facility] Mpplsp5700 [address] Roadblin [place] [id number] GFR/1.73 sq M predicted among non-blacks CKD-EPI vol rate/area (S/P/Bld) 58 mL/min/1.73 Abnormal Comprehensiv e Internal Medicine Work Phone: Comment on above: PATIENT WAS FASTINGP ERFORMED BY: ORTIZ [facility] Mgostp7826 Rodriguez RoadDublin [place] [id number] Globulin mass conc (S) 2.1 g/dL Normal 1.5-4.5 [facility] Work Phone: Comment on above: PATIENT WAS FASTINGP ERFORMED BY: ORTIZ [facility] Uuxsfr9595 Rodriguez RoadDublin [place] [id number] Glucose mass conc 99 mg/dL Normal 65-99 Compreh ensive Internal Medicine Work Phone: Comment on above: PATIENT WAS FASTINGP ERFORMED BY: ORTIZ [facility] Oahhrf8484 [address] RoadDublin [place] [id number] Potassium molar conc 4.9 mmol/L Normal 3.5-5.2 Comp [facility] centerens[facility] Internal Medicine Work Phone: Comment on above: PATIENT WAS FASTINGP ERFORMED BY: ORTIZ [facility] Gusnwr0398 Rodriguez RoadDublin [place] [id number] Protein mass conc 6.6 g/dL Normal 6.0-8.5 Compreh ensive Internal Medicine Work Phone: Comment on above: PATIENT WAS FASTINGP ERFORMED BY: ORTIZ [facility] Dxfsxz2265 Rodriguez RoadDublin [place] [id number] Sodium molar conc 141 mmol/L Normal 134-144 Compreh ensive Internal Medicine Work Phone: Comment on above: PATIENT WAS FASTINGP ERFORMED BY: ORTIZ [facility] Tpppsw6498 [address] RoadDublin [place] [id number] Urea nitrogen mass conc 21 mg/dL Normal 8-27 [facility] Work Phone: Comment on above: PATIENT WAS FASTINGP ERFORMED BY: ORTIZ [facility] Oxyeju0367 [address] RoadDublin [place] [id number] Urea nitrogen/Creatinine mass ratio 22 mg/mg Normal 11-26 [facility] Work Phone: Comment on above: PATIENT WAS FASTINGP ERFORMED BY: ORTIZ [facility] Erxixi2972 Rodriguez RoadDublin [place] [id number] TSH ([id number])Ordered By: Syste m Kitchen Clerk on 12-01-2013 Thyrotropin Qn 1.040 {uIU/mL} Normal 0.450-4.50 0 [facility] Work Phone: Comment on above: PATIENT WAS FASTINGP ERFORMED BY: ORTIZ [facility] Ljhaih8087 [facility] [id number] URINE IBRAHIMA CULTURE (TY COL COUNT) (03586)Ordered By: Manager Corporate Responsibility on 12-01-2013 Bacteria identified Cx Nom (U) Escherichia coli Normal [facility] Work Phone: Comment on above: Greater than 100,000 colony forming units per mL PATIENT NOT FASTINGP ERFORMED BY: ORTIZ [facility] Cqxsml0075 [facility] [id number] Information: SRC:UR [id number] Bacteria identified Cx Nom (U) Final report Normal [facility] Work Phone: Comment on above: PATIENT NOT FASTINGP ERFORMED BY: ORTIZ LabBeijing [employer] Tctlqk1989 [facility] [id number] Information: SRC:UR [id number] Other Antibiotic [facility] prehensive Internal Medicine Work Phone: Comment on above: S = Susceptibl e; I = Intermediate; R = Resistant P = Positive; N = Negative MICS are expressed in micrograms per mL Antibiotic RSLT#1 RSLT#2 RSLT#3 RSLT#4Amoxicillin/Clavulanic Acid SAmpicillin SCefepime SCeftriaxone SCefuroxime SCephalothin SCiprofloxacin SErtapenem SGentamicin SImipenem SLevofloxacin SNitrofurantoin SPiperacillin STetracycline STobramycin STrimethoprim/Sulfa S PATIENT NOT FASTINGP ERFORMED BY: ORTIZ LabBeijing [employer] Emmrgj4232 [facility] [id number] Information: SRC:UR [id number] Urinalysis, Office (37584)Or dered By: Jacinta Patel on 12-01-2013 Bilirubin [...] Internal Medicine Work Phone: Vitamin D Hydroxy (97045)Ord ered By: Manager Corporate Responsibility on 12-01-2013 25-Hydroxyvitamin D2+25-Hydroxyvitamin D3 mass conc 38.9 ng/mL Normal 30.0-100.0 [facility] Work Phone: Comment on above: Vitamin D deficiency has been defined by the [place] ofMedicine and an Endocrine Society practice guideline as alevel of serum 25-OH vitamin D less than 20 ng/mL (1,2).The Endocrine Society went on to further define vitamin Dinsufficiency as a level between 21 and 29 ng/mL (2).1. IOM ([place] of Medicine). 2010. Dietary reference intakes for calcium and D. [place]: The National Academies Press.2. Allie MF, Emile NC, Natalie POOLE, et al. Evaluation, treatment, and prevention of vitamin D deficiency: an Endocrine Society clinical practice guideline. JCEM. 2010; 96(7):1911-30. PATIENT WAS FASTINGP ERFORMED BY: [facility] Pbcbjb2415 [facility] [id number] Lab Report: PTon 04-19-2013 INR in blood by coagulation 1.0 {INR} Normal [facility] Work Phone: prothrombin time, actual/normal, ratio 12.8 SECONDS Normal 11.9-14.4 [facility] Work Phone: Lab Report: PTTon 04-19-2013 aPTT 29.8 s Normal 24.1-36.2 [facility] Work Phone: Replaced Document: Escobar Parra CG Observationson 04-19-2013 Pulse (Heart Rate) 421 ms Invalid Interpretation Code [facility] Work Phone: URINE IBRAHIMA CULTURE-TY COL C OUNT (42143)Ordered By: Manager Corporate Responsibility on 04-18-2013 Bacteria identified Cx Nom (U) Final report Normal [facility] Work Phone: Comment on above: PATIENT NOT FASTINGP ERFORMED BY: [facility] Digital MediaPsychiatric hospital [id number] Information: SRC:UR [id number] Bacteria identified Cx Nom (U) NG36 Normal [facility] Work Phone: Comment on above: No growth in 36 - 48 hours. PATIENT NOT FASTINGP ERFORMED BY: [place] [id number] Information: SRC:UR P38136 Urinalysis, Office (02274)Or dered By: Jacinta Patel on 04-15-2013 Bilirubin [...] Phone: URINE IBRAHIMA CULTURE (TY COL COUNT) (23146)Ordered By: Manager Corporate Responsibility on 09-30-2012 Bacteria identified Cx Nom (U) Escherichia coli Normal [facility] Work Phone: Comment on above: Greater than 100,000 colony forming units per mL PATIENT NOT FASTINGP ERFORMED BY: [employer] LabBe[employer] Inniix6[address] Signum BiosciencesNovant Health New [facility]opedic [facility] [id number] Information: SRC:UR [id number] Bacteria identified Cx Nom (U) Final report Normal [facility] Work Phone: Comment on above: PATIENT NOT FASTINGP ERFORMED BY: [employer] LabBe[employer] Vwbpnx9625 [address] Signum BiosciencesDuPsychiatric hospital [id number] Information: SRC:UR Z45043 Other Antibiotic [facility] prehensive Internal Medicine Work Phone: Comment on above: S = Susceptibl e; I = Intermediate; R = Resistant P = Positive; N = Negative MICS are expressed in micrograms per mL Antibiotic RSLT#1 RSLT#2 RSLT#3 RSLT#4Amoxicillin/Clavulanic Acid SAmpicillin SCefazolin SCefepime SCeftriaxone SCefuroxime SCephalothin SCiprofloxacin SESBL NErtapenem SGentamicin SImipenem SLevofloxacin SNitrofurantoin SPiperacillin STetracycline STobramycin STrimethoprim/Sulfa S PATIENT NOT FASTINGP ERFORMED BY: ORTIZ [facility] Njuayb5769 [facility] [id number] Information: SRC:UR Q67420 Urinalysis, Office (76184)Or dered By: Alyson Dixon on 09-30-2012 Bilirubin [...] Albumin/Globulin Ratio 1.1 {ratio} Invalid Interpretation Code [facility] Work Phone: Protein 6.7 g/dL Invalid Interpretation Code [facility] Work Phone: Alkaline Phosphatase (74927) Ordered By: Manager Corporate Responsibility on 02-25-2012 ALP enzyme act/vol 67 [iU]/L Normal 25-165 Compre hensive Internal Medicine Work Phone: Comment on above: PATIENT NOT FASTINGP ERFORMED BY: ORTIZ [facility] Rxbnlx1894 [facility] [id number] CALCIFIDIOL (86037) VIT D 25 Ordered By: Manager Corporate Responsibility on 02-25-2012 25-Hydroxyvitamin D2+25-Hydroxyvitamin D3 mass conc 45.8 ng/mL Normal 30.0-100.0 [facility] Work Phone: Comment on above: Vitamin D deficiency has been defined by the [place] of[place]icine and an Endocrine Society practice guideline as alevel of serum 25-OH vitamin D less than 20 ng/mL (1,2).The Endocrine Society went on to further define vitamin Dinsufficiency as a level between 21 and 29 ng/mL (2).1. IOM ([place] of Medicine). 2010. Dietary reference intakes for calcium and D. [place]: The National Academies Press.2. Allie MF, Emile NC, Natalie POOLE, et al. Evaluation, treatment, and prevention of vitamin D deficiency: an Endocrine Society clinical practice guideline. JCEM. 2010; 96(7):1911-30. PATIENT NOT FASTINGP ERFORMED BY: ORTIZ [employer]6370 [facility] [id number] Information: [id number] Calcium Serum (22506)Ordered By: Manager Corporate Responsibility on 02-25-2012 Calcium mass conc 9.3 mg/dL Normal 8.6-10.2 Compreh ensive Internal Medicine Work Phone: Comment on above: PATIENT NOT FASTINGP ERFORMED BY: ORTIZ CUPRAleksandr Jklsls8350 [facility] [id number] Clinical Lists Update: Prelo project financial analyst 02-16-2012 [facility] 34.6 % Invalid Interpretation Code [facility] Work Phone: CBC (AUTO) (80016)Ordered By : Manager Corporate Responsibility on 10-14-2010 Erythrocyte distribution width Ratio (RBC) 13.5 % Normal 11.7-15.0 [facility] Work Phone: Comment on above: PATIENT NOT FASTINGP ERFORMED BY: ORTIZ [employer]6370 [facility] [id number] Hematocrit Volume Fraction (Bld) 40.4 % Normal 34.0-44.0 [facility] Work Phone: Comment on above: PATIENT NOT FASTINGP ERFORMED BY: ORTIZ [facility] Pwhgda3642 [facility] [id number] Hemoglobin mass conc (Bld) 13.7 g/dL Normal 11.5-15.0 [facility] Internal Medicine Work Phone: Comment on above: PATIENT NOT FASTINGP ERFORMED BY: ORTIZ [facility] Eldlnw5161 [facility] [id number] MCH Entitic mass (RBC) 29.5 pg Normal 27.0-34.0 [facility] Internal Medicine Work Phone: Comment on above: PATIENT NOT FASTINGP ERFORMED BY: ORTIZ [facility] Ymuwsa9485 [facility] [id number] MCHC mass conc (RBC) 33.9 g/dL Normal 32.0-36.0 [facility] Internal Medicine Work Phone: Comment on above: PATIENT NOT FASTINGP ERFORMED BY: ORTIZ [facility] Ucmbtf7767 [facility] [id number] MCV Entitic volume (RBC) 87 fL Normal 80-98 [facility] Internal Medicine Work Phone: Comment on above: PATIENT NOT FASTINGP ERFORMED BY: ORTIZ [facility] Gsuojr1438 [facility] [id number] Platelets #/vol (Bld) 280 {x10E3/uL} Normal 140-415 [facility] Internal Medicine Work Phone: Comment on above: PATIENT NOT FASTINGP ERFORMED BY: [facility] Fhvkai1869 [facility] [id number] RBC #/vol (Bld) 4.64 {x10E6/uL} Normal 3.80-5.10 [facility] Internal Medicine Work Phone: Comment on above: PATIENT NOT FASTINGP ERFORMED BY: CB [facility] Bvseru7657 [facility] [id number] WBC #/vol (Bld) 6.2 {x10E3/uL} Normal 4.0-10.5 [facility] Internal Medicine Work Phone: Comment on above: PATIENT NOT FASTINGP ERFORMED BY: CB [facility] Kkizrb3480 [facility] [place] [id number] METABOLIC PANEL, COMPREHENSI VE (68739)Ordered By: Manager Corporate Responsibility on 10-14-2010 Albumin mass conc 4.4 g/dL Normal 3.5-4.8 Compreh [facility] Internal Medicine Work Phone: Comment on above: PATIENT NOT FASTINGP ERFORMED BY: CB [facility] Enpewq3874 [facility] [id number] Information: [id number] Albumin/Globulin mass ratio 1.8 {ratio} Normal 1.1-2.5 [facility] Internal Medicine Work Phone: Comment on above: PATIENT NOT FASTINGP ERFORMED BY: CB [facility] Zprujy3279 [facility] [id number] Information: [id number],[id number] ALP enzyme act/vol 84 [iU]/L Normal 25-165 [facility] Internal Medicine Work Phone: Comment on above: PATIENT NOT FASTINGP ERFORMED BY: CB [facility] Fqxdce3993 [facility] [id number] Information: 523444,[id number] ALT enzyme act/vol 13 [iU]/L Normal 0-40 [facility] Internal Medicine Work Phone: Comment on above: PATIENT NOT FASTINGP ERFORMED BY: CB [facility] Gfbcam8484 [facility] [id number] Information: 785581,D17503 AST enzyme act/vol 13 [iU]/L Normal 0-40 [facility] Internal Medicine Work Phone: Comment on above: PATIENT NOT FASTINGP ERFORMED BY: CB [facility] Qnmlbs9377 [facility] [id number] Information: 285138,P18287 Bilirubin mass conc 0.2 mg/dL Normal 0.0-1.2 [facility] Internal Medicine Work Phone: Comment on above: PATIENT NOT FASTINGP ERFORMED BY: CB [facility] Xyzwoc6154 [facility] [place] [id number] Information: 052258,M03008 Calcium mass conc 10.4 mg/dL Abnormal 8.6-10.2 Compreh ensive Internal Medicine Work Phone: Comment on above: PATIENT NOT FASTINGP ERFORMED BY: ORTIZ RobledoCoaustyn CroweThcgac7024 [facility] [id number] Information: 745292,Y27414 Chloride molar conc 101 mmol/L Normal 97-108 Compr ehensive Internal Medicine Work Phone: Comment on above: PATIENT NOT FASTINGP ERFORMED BY: CB [facility] Mlbnzt3940 [facility] [id number] Information: [id number],[id number] CO2 molar conc 28 mmol/L Normal 20-32 Comprehens trupti Internal Medicine Work Phone: Comment on above: PATIENT NOT FASTINGP ERFORMED BY: ORTIZ [facility] Nvgafy9009 [facility] [id number] Information: 236322,R22910 Creatinine mass conc 0.70 mg/dL Normal 0.57-1.00 Comp rehensive Internal Medicine Work Phone: Comment on above: PATIENT NOT FASTINGP ERFORMED BY: ORTIZ [facility] Ukkdag9326 [facility] [id number] Information: 291139,N48410 GFR/1.73 sq M predicted among blacks MDRD [...] [email or web address]. PATIENT NOT FASTINGP ERFORMED BY: [facility] Tvfoca0783 [facility] [id number] Information: 038996,D80069 GFR/1.73 sq M.predicted MDRD (S/P/Bld) [Vol rate/Area] mL/min/{1.73_m2} Normal [facility] Work Phone: Comment on above: PATIENT NOT FASTINGP ERFORMED BY: CB [facility] Zlxnhk2285 [facility] RoadLifecare Hospitals [facility] [place]ain [place] [id number] Information: 657668,H92959 GFR/1.73 sq M.predicted MDRD vol rate/area mL/min/{1.73_m2} Normal [facility] Work Phone: Comment on above: PATIENT NOT FASTINGP ERFORMED BY: CB [facility] Xkmldj5350 [facility] [id number] Information: 405005,C78849 Globulin mass conc (S) 2.5 g/dL Normal 1.5-4.5 [facility] Work Phone: Comment on above: PATIENT NOT FASTINGP ERFORMED BY: CB [facility] Zctnla1657 [facility] [id number] Information: 116297,Y52002 Glucose mass conc 88 mg/dL Normal 65-99 Compreh ensive Internal Medicine Work Phone: Comment on above: PATIENT NOT FASTINGP ERFORMED BY: CB [facility] Ivykka3695 [facility] [id number] Information: 764327,S84169 Potassium molar conc 4.6 mmol/L Normal 3.5-5.2 [facility] Internal [facility] Work Phone: Comment on above: PATIENT NOT FASTINGP ERFORMED BY: CB [facility] Ytxsbs6403 [facility] [id number] Information: 724113,Q57878 Protein mass conc 6.9 g/dL Normal 6.0-8.5 Compreh ensive Internal Medicine Work Phone: Comment on above: PATIENT NOT FASTINGP ERFORMED BY: CB [facility] Lhzcib3345 [facility] [id number] Information: 945395,H44963 Sodium molar conc 140 mmol/L Normal 135-145 Compreh ensive Internal Medicine Work Phone: Comment on above: PATIENT NOT FASTINGP ERFORMED BY: ORTIZ Nilda Ncpavi6841 [facility] [place] [id number] Information: 777020,W32632 Urea nitrogen mass conc 9 mg/dL Normal 8-27 [facility] Work Phone: Comment on above: PATIENT NOT FASTINGP ERFORMED BY: ORTIZ [facility] Bhpgec3129 [facility] [id number] Information: 649855,L02686 Urea nitrogen/Creatinine mass ratio 13 mg/mg Normal 11- [facility] Work Phone: Comment on above: PATIENT NOT FASTINGP ERFORMED BY: ORTIZ Ameyaaustyn CroweEvbpwh5789 [facility] [id number] Information: 230100,[id number] TSH (67895)Ordered By: Syste m Kitchen Clerk on 10-14-2010 Thyrotropin Qn 1.320 {uIU/mL} Normal 0.450-4.50 0 [facility] Work Phone: Comment on above: PATIENT NOT FASTINGP ERFORMED BY: ORTIZ LabCoaustyn CroweKawtxe1366 [facility] [id number] URINALYSIS W/O MICRO (97952) Ordered By: Manager Corporate Responsibility on 10-14-2010 Appearance Nom (U) Clear Normal Compre hensive Internal Medicine Work Phone: Comment on above: PATIENT NOT FASTINGP ERFORMED BY: ORTIZ [facility] Leasqn4115 [facility] [place] [id number] Bilirubin Ql (U) Negative Normal Comprehe nsive Internal Medicine Work Phone: Comment on above: PATIENT NOT FASTINGP ERFORMED BY: ORTIZ [facility] Ntqymk3221 [facility] [place] [id number] Color Nom (U) Yellow Normal Comprehensi ve Internal Medicine Work Phone: Comment on above: PATIENT NOT FASTINGP ERFORMED BY: ORTIZ Nilda Ezaivf6253 [facility] [id number] Glucose Ql (U) Negative Normal Comprehens trutpi Internal Medicine Work Phone: Comment on above: PATIENT NOT FASTINGP ERFORMED BY: ORTIZ Nilda Chester6370 [facility] [id number] Hemoglobin Ql (U) Negative Normal Compreh ensive Internal Medicine Work Phone: Comment on above: PATIENT NOT FASTINGP ERFORMED BY: ORTIZ Crowelin6370 [facility] [id number] Ketones Ql (U) Negative Normal Comprehens trupti Internal Medicine Work Phone: Comment on above: PATIENT NOT FASTINGP ERFORMED BY: ORTIZ MeenaAleksandr CroweCpwtek7859 [facility] [id number] Leukocyte esterase Test strip Ql (U) Negative Normal [facility] Work Phone: Comment on above: PATIENT NOT FASTINGP ERFORMED BY: ORTIZ Crowelin6370 [facility] [id number] Microscopic observation LM Nom (Urine sed) MICRON Normal [facility] Work Phone: Comment on above: Microscopic follows if indicated. PATIENT NOT FASTINGP ERFORMED BY: ORTIZ Crowelin6370 [facility] [id number] Nitrite Ql (U) Negative Normal Comprehens trupti Internal Medicine Work Phone: Comment on above: PATIENT NOT FASTINGP ERFORMED BY: ORTIZ Crowelin6370 [facility] [id number] pH (U) 6.5 [pH] Normal 5.0-7.5 [facility] Work Phone: Comment on above: PATIENT NOT FASTINGP ERFORMED BY: ORTIZ MeenaAleksandr CroweMfkpvp0862 [facility] [id number] Protein Ql (U) Negative Normal Comprehens trupti Internal Medicine Work Phone: Comment on above: PATIENT NOT FASTINGP ERFORMED BY: ORTIZ Crowelin6370 [facility] [id number] Specific gravity Relative Density (U) 1.020 1 Normal 1.005-1.03 0 [facility] Work Phone: Comment on above: PATIENT NOT FASTINGP ERFORMED BY: ORTIZ Chester6370 [facility] [place] [id number] Urobilinogen Test strip mass conc (U) 0.2 mg/dL Normal 0.0-1.9 Comprehensiv e Internal Medicine Work Phone: Comment on above: PATIENT NOT FASTINGP ERFORMED BY: ORTIZ [facility] Alwlch6645 [facility] [place] [id number] VITAMIN B-12 (CYANOCOBALAMIN ) (97751)Ordered By: Manager Corporate Responsibility on 10-14-2010 Cobalamin (Vitamin B12) mass conc 246 pg/mL Normal 211-946 [facility] Work Phone: Comment on above: PATIENT NOT FASTINGP ERFORMED BY: ORTIZ Hou Fusxnz5851 [facility] [id number] LIPID PANEL (88902)Ordered B y: Manager Corporate Responsibility on 12-14-2009 Cholesterol in HDL mass conc 54 mg/dL Normal [facility] Work Phone: Comment on above: According to ATP-III Guidelines, HDL-C >59 mg/dL is considered anegative risk factor for CHD. PATIENT WAS FASTINGP ERFORMED BY: ORTIZ [facility] Ntfehm8096 [facility] [id number] Information: 046791,M57494 Cholesterol in LDL mass conc 111 mg/dL Abnormal 0-99 [facility] Work Phone: Comment on above: PATIENT WAS FASTINGP ERFORMED BY: [facility] Axikid6203 [facility] [id number] Information: 020071,P79879 Cholesterol in LDL/Cholesterol in HDL mass ratio 2.1 {ratio_units} Normal 0.0-3.2 [facility] Work Phone: Comment on above: PATIENT WAS FASTINGP ERFORMED BY: [facility] Sqmdtc3732 [facility] [id number] Information: 045626,M25587 Cholesterol in VLDL mass conc 21 mg/dL Normal 5-40 [facility] Work Phone: Comment on above: PATIENT WAS FASTINGP ERFORMED BY: ORTIZ [facility]6370 [facility] [id number] Information: 251157,F11299 Cholesterol mass conc 186 mg/dL Normal 100-199 Com prehensive Internal Medicine Work Phone: Comment on above: PATIENT WAS FASTINGP ERFORMED BY: LabCoSt. Luke's Warren HospitalQifeuu5240 [facility] [id number] Information: 111254,H57142 Triglyceride mass conc 103 mg/dL Normal 0-149 [facility] Work Phone: Comment on above: PATIENT WAS FASTINGP ERFORMED BY: [place] 6263970 [facility] [id number] Information: 495118,C66006 TSH (37537)Ordered By: Syste m Kitchen Clerk on 12-14-2009 Thyrotropin Qn 1.680 {uIU/mL} Normal 0.450-4.50 0 [facility] Work Phone: Comment on above: PATIENT WAS FASTINGP ERFORMED BY: [facility]6370 [facility] [id number] CBC WITH MANUAL DIFF (47468) Ordered By: Manager Corporate Responsibility on 12-13-2009 Basophils #/vol (Bld) 0.0 {x10E3/uL} Normal 0.0-0.2 [facility] Work Phone: Comment on above: PATIENT NOT FASTINGP ERFORMED BY: [facility] Mvpazf4558 [facility] [id number] Information: 527128,[id number] Basophils/100 WBC (Bld) 0 % Normal 0-3 [facility] Work Phone: Comment on above: PATIENT NOT FASTINGP ERFORMED BY: Lab[facility]6370 [facility] [id number] Information: 428050,I75697 Eosinophils #/vol (Bld) 0.0 {x10E3/uL} Normal 0.0-0.4 [facility] Work Phone: Comment on above: PATIENT NOT FASTINGP ERFORMED BY: ORTIZ [facility] Muffhb0099 [facility] [id number] Information: 475409,U82321 Eosinophils/100 WBC (Bld) 0 % Normal 0-7 [facility] Work Phone: Comment on above: PATIENT NOT FASTINGP ERFORMED BY: LabCoDeborah Ville 7575270 [facility] [id number] Information: 010084,M56322 Erythrocyte distribution width Ratio (RBC) 13.9 % Normal 11.7-15.0 [facility] Work Phone: Comment on above: PATIENT NOT FASTINGP ERFORMED BY: LabSarah Ville 7480170 [facility] [id number] Information: 550008,B81050 Hematocrit Volume Fraction (Bld) 38.9 % Normal 34.0-44.0 [facility] Work Phone: Comment on above: PATIENT NOT FASTINGP ERFORMED BY: LabCoSt. Luke's Warren HospitalZktqgx8697 [facility] [id number] Information: 056013,Z09189 Hemoglobin mass conc (Bld) 13.7 g/dL Normal 11.5-15.0 [facility] Work Phone: Comment on above: PATIENT NOT FASTINGP ERFORMED BY: [facility] Yaijlf5974 [facility] [id number] Information: 337118,C34650 Lymphocytes #/vol (Bld) 1.3 {x10E3/uL} Normal 0.7-4.5 [facility] Work Phone: Comment on above: PATIENT NOT FASTINGP ERFORMED BY: LabCoSt. Luke's Warren HospitalGistrm6413 [facility] [id number] Information: 448813,G97373 Lymphocytes/100 WBC (Bld) 20 % Normal 14-46 [facility] Work Phone: Comment on above: PATIENT NOT FASTINGP ERFORMED BY: ORTIZ Hou Rgyicf3380 [facility] [id number] Information: 058751,L08950 MCH Entitic mass (RBC) 31.3 pg Normal 27.0-34.0 [facility] Internal Medicine Work Phone: Comment on above: PATIENT NOT FASTINGP ERFORMED BY: ORTIZ [address] [id number] Information: 811464,[id number] MCHC mass conc (RBC) 35.2 g/dL Normal 32.0-36.0 [facility] Internal Medicine Work Phone: Comment on above: PATIENT NOT FASTINGP ERFORMED BY: [address] [id number] Information: 426814,[id number] MCV Entitic volume (RBC) 89 fL Normal 80-98 [facility] Internal Medicine Work Phone: Comment on above: PATIENT NOT FASTINGP ERFORMED BY: ORTIZ [address]led[address] [id number] Information: 396790,Y39280 Monocytes #/vol (Bld) 0.4 {x10E3/uL} Normal 0.1-1.0 [facility] Work Phone: Comment on above: PATIENT NOT FASTINGP ERFORMED BY: [place] 6263970 [facility] [id number] Information: 770776,I19810 Monocytes/100 WBC (Bld) 6 % Normal 4-13 [facility] Work Phone: Comment on above: PATIENT NOT FASTINGP ERFORMED BY: [place] 6263970 [facility] [id number] Information: 153366,T56867 Neutrophils #/vol (Bld) 5.0 {x10E3/uL} Normal 1.8-7.8 [facility] Work Phone: Comment on above: PATIENT NOT FASTINGP ERFORMED BY: ORTIZ Chester6370 [facility] [id number] Information: 120518,L84154 Neutrophils/100 WBC (Bld) 74 % Normal 40-74 [facility] Work Phone: Comment on above: PATIENT NOT FASTINGP ERFORMED BY: ORTIZ RobledoCo Lszfjw6943 [facility] [id number] Information: [id number],[id number] Platelets #/vol (Bld) 228 {x10E3/uL} Normal 140-415 [facility] Work Phone: Comment on above: PATIENT NOT FASTINGP ERFORMED BY: ORTIZ Hou Twofhk0616 [facility] [id number] Information: 577174,[id number] RBC #/vol (Bld) 4.38 {x10E6/uL} Normal 3.80-5.10 [facility] Internal Medicine Work Phone: Comment on above: PATIENT NOT FASTINGP ERFORMED BY: ORTIZ Hou Xdmdnq9953 [facility] [id number] Information: 013066,M70465 WBC #/vol (Bld) 6.7 {x10E3/uL} Normal 4.0-10.5 [facility] Internal Medicine Work Phone: Comment on above: PATIENT NOT FASTINGP ERFORMED BY: ORTIZ [facility] Jmzrfr2160 [facility] [id number] Information: 381662,H70134 METABOLIC PANEL, COMPREHENSI VE (00951)Ordered By: Manager Corporate Responsibility on 12-13-2009 Albumin mass conc 4.1 g/dL Normal 3.5-4.8 Compreh [facility] Internal Medicine Work Phone: Comment on above: PATIENT NOT FASTINGP ERFORMED BY: ORTIZ [facility] Veokho2538 [facility] [id number] Albumin/Globulin mass ratio 1.7 {ratio} Normal 1.1-2.5 [facility] Work Phone: Comment on above: PATIENT NOT FASTINGP ERFORMED BY: ORTIZ LabAleksandr Chester6370 [facility] [place] [id number] ALP enzyme act/vol 82 [iU]/L Normal 25-165 [facility] Internal [facility] Work Phone: Comment on above: PATIENT NOT FASTINGP ERFORMED BY: ORTIZ LabCoaustyn CrowePbgwtz0925 [facility] [place] [id number] ALT enzyme act/vol 12 [iU]/L Normal 0-40 [facility] Internal Medicine Work Phone: Comment on above: PATIENT NOT FASTINGP ERFORMED BY: ORTIZ LabCoaustyn CroweVqxmdw4077 [facility] [place] [id number] AST enzyme act/vol 19 [iU]/L Normal 0-40 [facility] Internal Medicine Work Phone: Comment on above: PATIENT NOT FASTINGP ERFORMED BY: ORTIZ Nilda Wbtsuf5756 [facility] [id number] Bilirubin mass conc 0.2 mg/dL Normal 0.1-1.2 Compr [facility] Internal Medicine Work Phone: Comment on above: PATIENT NOT FASTINGP ERFORMED BY: ORTIZ Nilda Wtgpag6375 [facility] [id number] Calcium mass conc 9.6 mg/dL Normal 8.6-10.2 Compreh ensive Internal Medicine Work Phone: Comment on above: PATIENT NOT FASTINGP ERFORMED BY: ORTIZ [facility] Kutenu5913 [facility] [place] [id number] Chloride molar conc 104 mmol/L Normal 97-108 Compr ensive Internal Medicine Work Phone: Comment on above: PATIENT NOT FASTINGP ERFORMED BY: ORTIZ [facility] Lnjdwo9398 [facility] [place] [id number] CO2 molar conc 25 mmol/L Normal 20-32 Comprehens trupti Internal Medicine Work Phone: Comment on above: PATIENT NOT FASTINGP ERFORMED BY: ORTIZ [facility] Elfeds1389 [facility] [id number] Creatinine mass conc 0.71 mg/dL Normal 0.57-1.00 Comp [facility] Internal Medicine Work Phone: Comment on above: PATIENT NOT FASTINGP ERFORMED BY: ORTIZ [facility] Sqyzzy4732 [facility] [id number] GFR/1.73 sq M predicted among blacks MDRD [...] PATIENT NOT FASTINGP ERFORMED BY: ORTIZ [facility] Mgxcvk8636 [facility] [id number] GFR/1.73 sq M.predicted MDRD (S/P/Bld) [Vol rate/Area] mL/min/{1.73_m2} Normal [facility] Work Phone: Comment on above: PATIENT NOT FASTINGP ERFORMED BY: ORTIZ [facility] Ditkai6045 [facility] [id number] GFR/1.73 sq M.predicted MDRD vol rate/area mL/min/{1.73_m2} Normal [facility] Work Phone: Comment on above: PATIENT NOT FASTINGP ERFORMED BY: ORTIZ [facility] Anmnel2434 [facility] [id number] Globulin mass conc (S) 2.4 g/dL Normal 1.5-4.5 [facility] Work Phone: Comment on above: PATIENT NOT FASTINGP ERFORMED BY: ORTIZ [facility] Ptrfrx8081 [facility] [id number] Glucose mass conc 89 mg/dL Normal 65-99 Compreh [facility] Internal Medicine Work Phone: Comment on above: PATIENT NOT FASTINGP ERFORMED BY: ORTIZ [facility] Zmpyyd6231 [facility] [id number] Potassium molar conc 5.0 mmol/L Normal 3.5-5.2 Comp rehensive Internal Medicine Work Phone: Comment on above: PATIENT NOT FASTINGP ERFORMED BY: ORTIZ [facility] Bldzif3343 [facility] [id number] Protein mass conc 6.5 g/dL Normal 6.0-8.5 Compreh ensive Internal Medicine Work Phone: Comment on above: PATIENT NOT FASTINGP ERFORMED BY: ORTIZ [facility] Osxvik7229 [facility] [id number] Sodium molar conc 142 mmol/L Normal 135-145 Compreh ensive Internal Medicine Work Phone: Comment on above: PATIENT NOT FASTINGP ERFORMED BY: ORTIZ [facility] Zrjnsh0324 [facility] [id number] Urea nitrogen mass conc 10 mg/dL Normal 5-26 [facility] Work Phone: Comment on above: PATIENT NOT FASTINGP ERFORMED BY: ORTIZ [facility] Docxfj0991 [facility] [id number] Urea nitrogen/Creatinine mass ratio 14 mg/mg Normal 8-27 [facility] Work Phone: Comment on above: PATIENT NOT FASTINGP ERFORMED BY: ORTIZ [facility] Ykqscl5601 [facility] [id number] Urinalysis, Office ([id number])Or dered By: Radha Velez on 09-21-2008 Bilirubin [...] Bacteria identified Cx Nom (U) Escherichia coli [facility] Work Phone: Vital Signs Date Time Vital Sign Value Performing Clinician Facility 03-02-2025 18:29-0400 Body height 157.[address] Yesika Faust MD Work Phone: [facility] 05-05-2019 10:14-0400 BMI (Body Mass Index) 33.02 kg/m2 Mirella [facility] Internal Medicine Work Phone: 05-05-2019 10:14-0400 Body weight 74.16 kg Mirella [facility] Internal Medicine Work Phone: 05-05-2019 10:14-0400 BP Diastolic 80 mm[Hg] Mirella [facility] Internal Medicine Work Phone: Comment on above: Patient Position: Sitting; Cuff Location : Left Arm; Cuff Size: Large 05-05-2019 10:14-0400 BP Systolic 138 mm[Hg] [facility] Internal Medicine Work Phone: Comment on above: Patient Position: Sitting; Cuff Location : Left Arm; Cuff Size: Large 05-05-2019 10:14-0400 BSA (Body Surface Area) 1.69 m2 [facility] Internal Medicine Work Phone: 05-05-2019 10:14-0400 Height 149.86 cm Mirella Mccracken [facility] Internal Medicine Work Phone: 05-05-2019 10:14-0400 Pulse (Heart Rate) 68 /min Mirella Mccracken [facility] Internal Medicine Work Phone: Comment on above: Pattern: Regular 05-05-2019 10:14-0400 Pulse Oximetry 95 % Mirella Mccracken [facility] Internal Medicine Work Phone: Comment on above: Room air 05-05-2019 10:14-0400 Respiratory Rate 18 /min Mirella Mccracken [facility] Internal Medicine Work Phone: Comment on above: Pattern: Unlabored 03-15-2019 09:59-0400 BMI (Body Mass Index) 33.4 kg/m2 Mirella [facility] Internal Medicine Work Phone: 03-15-2019 09:59-0400 Body weight 75.01 kg Mirella Mccracken [facility] Internal Medicine Work Phone: 03-15-2019 09:59-0400 BP Diastolic 82 mm[Hg] Mirella Mccracken [facility] Internal Medicine Work Phone: Comment on above: Patient Position: Sitting; Cuff Location : Left Arm; Cuff Size: Large 03-15-2019 09:59-0400 BP Systolic 168 mm[Hg] Mirella Mccracken [facility] Internal Medicine Work Phone: Comment on above: Patient Position: Sitting; Cuff Location : Left Arm; Cuff Size: Large 03-15-2019 09:59-0400 BSA (Body Surface Area) 1.7 m2 Mirella Mccracken [facility] Internal Medicine Work Phone: 03-15-2019 09:59-0400 Height 149.86 cm Mirella Mccracken [facility] Internal Medicine Work Phone: 03-15-2019 09:59-0400 Pulse (Heart Rate) 88 /min Mirella Mccracken [facility] Internal Medicine Work Phone: Comment on above: Pattern: Regular 03-15-2019 09:59-0400 Pulse Oximetry 98 % Mirella Mccracken [facility] Internal Medicine Work Phone: Comment on above: Room air 03-15-2019 09:59-0400 Respiratory Rate 18 /min Mirella Mccracken [facility] Internal Medicine Work Phone: Comment on above: Pattern: Unlabored 01-21-2018 08:25-0400 BMI (Body Mass Index) 29.34 kg/m2 Mirella [facility] Internal Medicine Work Phone: 01-21-2018 08:25-0400 Body weight 65.89 kg Mirella Mccracken [facility] Internal Medicine Work Phone: 01-21-2018 08:25-0400 BP Diastolic 84 mm[Hg] Mirella Mccracken [facility] Internal Medicine Work Phone: Comment on above: Patient Position: Sitting; Cuff Location : Left Arm; Cuff Size: Large 01-21-2018 08:25-0400 BP Systolic 128 mm[Hg] Mirella Mccracken [facility] Internal Medicine Work Phone: Comment on above: Patient Position: Sitting; Cuff Location : Left Arm; Cuff Size: Large 01-21-2018 08:25-0400 BSA (Body Surface Area) 1.61 m2 Mirella Mccracken [facility] Internal Medicine Work Phone: 01-21-2018 08:25-0400 Height 149.86 cm Mirella Mccracken [facility] Internal Medicine Work Phone: 01-21-2018 08:25-0400 Pulse (Heart Rate) 84 /min Mirella Mccracken [facility] Internal Medicine Work Phone: Comment on above: Pattern: Regular 01-21-2018 08:25-0400 Pulse Oximetry 98 % Mirella Mccracken [facility] Internal Medicine Work Phone: Comment on above: Room air 01-21-2018 08:25-0400 Respiratory Rate 18 /min Mirella Mccracken [facility] Internal Medicine Work Phone: Comment on above: Pattern: Unlabored 01-21-2018 08:25-0400 Weight 65.89 kg Mirella Mccracken [facility] Internal Medicine Work Phone: 11-09-2017 14:35-0500 BMI (Body Mass Index) 28.91 kg/m2 Mirella [facility] Internal Medicine Work Phone: 11-09-2017 14:35-0500 Body weight 64.92 kg Mirella Mccracken [facility] Internal Medicine Work Phone: 11-09-2017 14:35-0500 BP Diastolic 90 mm[Hg] Mirella Mccracken [facility] Internal Medicine Work Phone: Comment on above: Patient Position: Sitting; Cuff Location : Left Arm; Cuff Size: Large 11-09-2017 14:35-0500 BP Systolic 148 mm[Hg] Mirella Mccracken [facility] Internal Medicine Work Phone: Comment on above: Patient Position: Sitting; Cuff Location : Left Arm; Cuff Size: Large 11-09-2017 14:35-0500 BSA (Body Surface Area) 1.6 m2 Mirella Mccracken [facility] Internal Medicine Work Phone: 11-09-2017 14:35-0500 Height 149.86 cm Mirella Mccracken [facility] Internal Medicine Work Phone: 11-09-2017 14:35-0500 Pulse (Heart Rate) 67 /min Mirella Mccracken [facility] Internal Medicine Work Phone: Comment on above: Pattern: Regular 11-09-2017 14:35-0500 Pulse Oximetry 98 % Mirella Mccracken [facility] Internal Medicine Work Phone: Comment on above: Room air 11-09-2017 14:35-0500 Respiratory Rate 18 /min Mirella Mccracken [facility] Internal Medicine Work Phone: Comment on above: Pattern: Unlabored 11-09-2017 14:35-0500 Weight 64.92 kg Mirella Mccracken [facility] Internal Medicine Work Phone: 10-15-2017 09:58-0500 BMI (Body Mass Index) 28.91 kg/m2 Mirella [facility] Internal Medicine Work Phone: 10-15-2017 09:58-0500 Body weight 64.92 kg Mirella Mccracken [facility] Internal Medicine Work Phone: 10-15-2017 09:58-0500 BP Diastolic 78 mm[Hg] Mirella Mccracken [facility] Internal Medicine Work Phone: Comment on above: Patient Position: Sitting; Cuff Location : Left Arm; Cuff Size: Large 10-15-2017 09:58-0500 BP Systolic 146 mm[Hg] Mirella Mccracken [facility] Internal Medicine Work Phone: Comment on above: Patient Position: Sitting; Cuff Location : Left Arm; Cuff Size: Large 10-15-2017 09:58-0500 BSA (Body Surface Area) 1.6 m2 Mirella Mccracken [facility] Internal Medicine Work Phone: 10-15-2017 09:58-0500 Height 149.86 cm Mirella Mccracken [facility] Internal Medicine Work Phone: 10-15-2017 09:58-0500 Pulse (Heart Rate) 74 /min Mirella Mccracken [facility] Internal Medicine Work Phone: Comment on above: Pattern: Regular 10-15-2017 09:58-0500 Pulse Oximetry 99 % Mirella Mccracken [facility] Internal Medicine Work Phone: Comment on above: Room air 10-15-2017 09:58-0500 Respiratory Rate 18 /min Mirella Mccracken [facility] Internal Medicine Work Phone: Comment on above: Pattern: Unlabored 10-15-2017 09:58-0500 Weight 64.92 kg Mirella Mccracken [facility] Internal Medicine Work Phone: 09-18-2017 09:08-0500 BMI (Body Mass Index) 28.91 kg/m2 Mirella [facility] Internal Medicine Work Phone: 09-18-2017 09:08-0500 Body weight 64.92 kg Mirella Mccracken [facility] Internal Medicine Work Phone: 09-18-2017 09:08-0500 BP Diastolic 82 mm[Hg] Mirella Mccracken [facility] Internal Medicine Work Phone: Comment on above: Patient Position: Sitting; Cuff Location : Left Arm; Cuff Size: Large 09-18-2017 09:08-0500 BP Systolic 128 mm[Hg] Mirella Mccracken [facility] Internal Medicine Work Phone: Comment on above: Patient Position: Sitting; Cuff Location : Left Arm; Cuff Size: Large 09-18-2017 09:08-0500 BSA (Body Surface Area) 1.6 m2 Mirella Mccracken [facility] Internal Medicine Work Phone: 09-18-2017 09:08-0500 Height 149.86 cm Mirella Mccracken [facility] Internal Medicine Work Phone: 09-18-2017 09:08-0500 Pulse (Heart Rate) 72 /min Mirella Mccracken [facility] Internal Medicine Work Phone: Comment on above: Pattern: Regular 09-18-2017 09:08-0500 Pulse Oximetry 98 % Mirella Mccracken [facility] Internal Medicine Work Phone: Comment on above: Room air 09-18-2017 09:08-0500 Respiratory Rate 18 /min Mirella Mccracken [facility] Internal Medicine Work Phone: Comment on above: Pattern: Unlabored 09-18-2017 09:08-0500 Weight 64.92 kg Mirella Mccracken [facility] Internal Medicine Work Phone: 06-05-2017 11:24-0400 BMI (Body Mass Index) 29.67 kg/m2 [facility] Work Phone: 06-05-2017 11:24-0400 BP Diastolic 68 mm[Hg] [facility] Work Phone: 06-05-2017 11:24-0400 BP Systolic 126 mm[Hg] [facility] Work Phone: 06-05-2017 11:24-0400 Height 147.32 cm [facility] Work Phone: 06-05-2017 11:24-0400 Pulse (Heart Rate) 72 /min [facility] Work Phone: 06-05-2017 11:24-0400 Respiratory Rate 18 /min [facility] Work Phone: 06-05-2017 11:24-0400 Weight 64.41 kg [facility] Work Phone: 05-07-2017 11:04-0400 BMI (Body Mass Index) 29.29 kg/m2 Mirella [facility] Internal Medicine Work Phone: 05-07-2017 11:04-0400 Body weight 65.77 kg Mirella Mccracken [facility] Internal Medicine Work Phone: 05-07-2017 11:04-0400 BP Diastolic 82 mm[Hg] Mirella Mccracken [facility] Internal Medicine Work Phone: Comment on above: Patient Position: Sitting; Cuff Location : Left Arm; Cuff Size: Standard 05-07-2017 11:04-0400 BP Systolic 128 mm[Hg] Mirella Mccracken [facility] Internal Medicine Work Phone: Comment on above: Patient Position: Sitting; Cuff Location : Left Arm; Cuff Size: Standard 05-07-2017 11:04-0400 BSA (Body Surface Area) 1.61 m2 Mirella Mccracken [facility] Internal Medicine Work Phone: 05-07-2017 11:04-0400 Height 149.86 cm Mirella Mccracken [facility] Internal Medicine Work Phone: 05-07-2017 11:04-0400 Pulse (Heart Rate) 65 /min Mirella Mccracken [facility] Internal Medicine Work Phone: Comment on above: Pattern: Regular 05-07-2017 11:04-0400 Pulse Oximetry 98 % Mirella Mccracken [facility] Internal Medicine Work Phone: Comment on above: Room air 05-07-2017 11:04-0400 Respiratory Rate 18 /min Mirella Mccrack[facility] Internal Medicine Work Phone: Comment on above: Pattern: Unlabored 05-07-2017 11:04-0400 Weight 65.77 kg Mirella Mccracken [facility] Internal Medicine Work Phone: 03-26-2017 08:06-0400 BMI (Body Mass Index) 29.29 kg/m2 Mirella [facility] Internal Medicine Work Phone: 03-26-2017 08:06-0400 Body Temperature 97.5 [degF] Mirella Mccracken [facility] Internal Medicine Work Phone: Comment on above: Method: Temporal 03-26-2017 08:06-0400 Body weight 65.77 kg Mirella Mccracken [facility] Internal Medicine Work Phone: 03-26-2017 08:06-0400 BP Diastolic 84 mm[Hg] Mirella Mccracken [facility] Internal Medicine Work Phone: Comment on above: Patient Position: Sitting; Cuff Location : Left Arm; Cuff Size: Large 03-26-2017 08:06-0400 BP Systolic 126 mm[Hg] Mirella Mccracken [facility] Internal Medicine Work Phone: Comment on above: Patient Position: Sitting; Cuff Location : Left Arm; Cuff Size: Large 03-26-2017 08:06-0400 BSA (Body Surface Area) 1.61 m2 Mirella Mccracken [facility] Internal Medicine Work Phone: 03-26-2017 08:06-0400 Height 149.86 cm Mirella Mccracken [facility] Internal Medicine Work Phone: 03-26-2017 08:06-0400 Pulse (Heart Rate) 82 /min Mirella Mccracken [facility] Internal Medicine Work Phone: Comment on above: Pattern: Regular 03-26-2017 08:06-0400 Pulse Oximetry 98 % Mirella Mccracken [facility] Internal Medicine Work Phone: Comment on above: Room air 03-26-2017 08:06-0400 Respiratory Rate 16 /min Mirella Mccracken [facility] Internal Medicine Work Phone: Comment on above: Pattern: Unlabored 03-26-2017 08:06-0400 Weight 65.77 kg Mirella Mccracken [facility] Internal Medicine Work Phone: 12-25-2016 10:08-0400 BMI (Body Mass Index) 29.51 kg/m2 Mirella [facility] Internal [facility] Work Phone: 12-25-2016 10:08-0400 Body weight 66.28 kg Mirella Mccracken [facility] Internal Medicine Work Phone: 12-25-2016 10:08-0400 BP Diastolic 80 mm[Hg] Mirella Mccracken [facility] Internal Medicine Work Phone: Comment on above: Patient Position: Sitting; Cuff Location : Left Arm; Cuff Size: Large 12-25-2016 10:08-0400 BP Systolic 122 mm[Hg] Mirella Mccracken [facility] Internal Medicine Work Phone: Comment on above: Patient Position: Sitting; Cuff Location : Left Arm; Cuff Size: Large 12-25-2016 10:08-0400 BSA (Body Surface Area) 1.61 m2 Mirella Mccracken [facility] Internal Medicine Work Phone: 12-25-2016 10:08-0400 Height 149.86 cm Mirella Mccracken [facility] Internal Medicine Work Phone: 12-25-2016 10:08-0400 Pulse (Heart Rate) 69 /min Mirella Mccracken [facility] Internal Medicine Work Phone: Comment on above: Pattern: Regular 12-25-2016 10:08-0400 Pulse Oximetry 98 % Mirella Mccracken [facility] Internal Medicine Work Phone: Comment on above: Room air 12-25-2016 10:08-0400 Respiratory Rate 18 /min Mirella Mccracken [facility] Internal Medicine Work Phone: Comment on above: Pattern: Unlabored 12-25-2016 10:08-0400 Weight 66.28 kg Mirella Mccracken [facility] Internal Medicine Work Phone: 11-03-2016 14:09-0500 BSA (Body Surface Area) 1.59 m2 Hung [facility] Work Phone: 09-25-2016 07:51-0500 BMI (Body Mass Index) 29.94 kg/m2 Mirella [facility] Internal Medicine Work Phone: 09-25-2016 07:51-0500 Body Temperature 97.6 [degF] Mirella Mccracken [facility] Internal Medicine Work Phone: 09-25-2016 07:51-0500 Body weight 67.25 kg Mirella Mccracken [facility] Internal Medicine Work Phone: 09-25-2016 07:51-0500 BP Diastolic 78 mm[Hg] Mirella Mccracken [facility] Internal Medicine Work Phone: Comment on above: Patient Position: Sitting; Cuff Location : Left Arm; Cuff Size: Standard 09-25-2016 07:51-0500 BP Systolic 122 mm[Hg] Mirella Mccracken [facility] Internal Medicine Work Phone: Comment on above: Patient Position: Sitting; Cuff Location : Left Arm; Cuff Size: Standard 09-25-2016 07:51-0500 BSA (Body Surface Area) 1.62 m2 Mirella Mccracken [facility] Internal Medicine Work Phone: 09-25-2016 07:51-0500 Height 149.86 cm Mirella Mccracken [facility] Internal Medicine Work Phone: 09-25-2016 07:51-0500 Pulse (Heart Rate) 94 /min Mirella Mccracken [facility] Internal Medicine Work Phone: Comment on above: Pattern: Regular 09-25-2016 07:51-0500 Pulse Oximetry 96 % Mirella Mccracken [facility] Internal Medicine Work Phone: Comment on above: Room air 09-25-2016 07:51-0500 Respiratory Rate 17 /min Mirella Mccracken [facility] Internal Medicine Work Phone: Comment on above: Pattern: Unlabored 09-25-2016 07:51-0500 Weight 67.25 kg Mirella Mccracken [facility] Internal Medicine Work Phone: 06-25-2016 08:52-0400 BMI (Body Mass Index) 29.54 kg/m2 Mirella [facility]ccrack[facility] Internal Medicine Work Phone: 06-25-2016 08:52-0400 Body weight 66.34 kg Mirella Mccracken [facility] Internal Medicine Work Phone: 06-25-2016 08:52-0400 BP Diastolic 60 mm[Hg] Mirella Mccracken [facility] Internal Medicine Work Phone: Comment on above: Patient Position: Sitting; Cuff Location : Left Arm; Cuff Size: Standard 06-25-2016 08:52-0400 BP Systolic 110 mm[Hg] Mierlla Mccracken [facility] Internal Medicine Work Phone: Comment on above: Patient Position: Sitting; Cuff Location : Left Arm; Cuff Size: Standard 06-25-2016 08:52-0400 BSA (Body Surface Area) 1.61 m2 Mirella Mccracken [facility] Internal Medicine Work Phone: 06-25-2016 08:52-0400 Height 149.86 cm Mirella Mccracken [facility] Internal Medicine Work Phone: 06-25-2016 08:52-0400 Pulse (Heart Rate) 72 /min Mirella Mccracken [facility] Internal Medicine Work Phone: Comment on above: Pattern: Regular 06-25-2016 08:52-0400 Pulse Oximetry 100 % Mirella Mccracken [facility] Internal Medicine Work Phone: Comment on above: Room air 06-25-2016 08:52-0400 Respiratory Rate 18 /min Mirella Mccracken [facility] Internal Medicine Work Phone: Comment on above: Pattern: Unlabored 06-25-2016 08:52-0400 Weight 66.34 kg Mirella Mccracken [facility] Internal Medicine Work Phone: 05-21-2016 08:08-0400 BMI (Body Mass Index) 29.39 kg/m2 Mirella Mccrack[facility] Internal Medicine Work Phone: 05-21-2016 08:08-0400 Body Temperature 97.2 [degF] Mirella Mccracken [facility] Internal Medicine Work Phone: 05-21-2016 08:08-0400 Body weight 66 kg Mirella Mccracken [facility] Internal Medicine Work Phone: 05-21-2016 08:08-0400 BP Diastolic 82 mm[Hg] Mirella Mccracken [facility] Internal Medicine Work Phone: Comment on above: Patient Position: Sitting; Cuff Location : Left Arm; Cuff Size: Standard 05-21-2016 08:08-0400 BP Systolic 124 mm[Hg] Mirella Mccracken [facility] Internal Medicine Work Phone: Comment on above: Patient Position: Sitting; Cuff Location : Left Arm; Cuff Size: Standard 05-21-2016 08:08-0400 BSA (Body Surface Area) 1.61 m2 Mirella Mccracken [facility] Internal Medicine Work Phone: 05-21-2016 08:08-0400 Height 149.86 cm Mirella Mccracken [facility] Internal Medicine Work Phone: 05-21-2016 08:08-0400 Pulse (Heart Rate) 80 /min Mirella Mccracken [facility] Internal Medicine Work Phone: Comment on above: Pattern: Regular 05-21-2016 08:08-0400 Pulse Oximetry 98 % Mirella Mccracken [facility] Internal Medicine Work Phone: Comment on above: Room air 05-21-2016 08:08-0400 Respiratory Rate 16 /min Mirella Mccracken [facility] Internal Medicine Work Phone: Comment on above: Pattern: Unlabored 05-21-2016 08:08-0400 Weight 66 kg Mirella Mccracken [facility] Internal Medicine Work Phone: 01-04-2016 09:52-0400 BMI (Body Mass Index) 29.59 kg/m2 Mirella Mccrack[facility] Internal Medicine Work Phone: 01-04-2016 09:52-0400 Body weight 66.45 kg Mirella Mccracken [facility] Internal Medicine Work Phone: 01-04-2016 09:52-0400 BP Diastolic 64 mm[Hg] Mirella Mccracken [facility] Internal Medicine Work Phone: Comment on above: Patient Position: Sitting; Cuff Location : Left Arm; Cuff Size: Standard 01-04-2016 09:52-0400 BP Systolic 110 mm[Hg] Mirella Mccracken [facility] Internal Medicine Work Phone: Comment on above: Patient Position: Sitting; Cuff Location : Left Arm; Cuff Size: Standard 01-04-2016 09:52-0400 BSA (Body Surface Area) 1.62 m2 Mirella Mccracken [facility] Internal Medicine Work Phone: 01-04-2016 09:52-0400 Height 149.86 cm Mirella Mccracken [facility] Internal Medicine Work Phone: 01-04-2016 09:52-0400 Pulse (Heart Rate) 64 /min Mirella Mccracken [facility] Internal Medicine Work Phone: Comment on above: Pattern: Regular 01-04-2016 09:52-0400 Pulse Oximetry 97 % Mirella Mccracken [facility] Internal Medicine Work Phone: Comment on above: Room air 01-04-2016 09:52-0400 Respiratory Rate 18 /min Mirella Mccracken [facility] Internal Medicine Work Phone: Comment on above: Pattern: Unlabored 01-04-2016 09:52-0400 Weight 66.45 kg Mirella Mccracken [facility] Internal Medicine Work Phone: 12-06-2015 09:19-0400 BMI (Body Mass Index) 29.89 kg/m2 Mirella Mccracken [facility] Internal Medicine Work Phone: 12-06-2015 09:19-0400 Body weight 67.13 kg Mirella Mccracken [facility] Internal Medicine Work Phone: 12-06-2015 09:19-0400 BP Diastolic 78 mm[Hg] Mirella Mccracken [facility] Internal Medicine Work Phone: Comment on above: Patient Position: Sitting; Cuff Location : Left Arm; Cuff Size: Large 12-06-2015 09:19-0400 BP Systolic 122 mm[Hg] Mirella Mccracken [facility] Internal Medicine Work Phone: Comment on above: Patient Position: Sitting; Cuff Location : Left Arm; Cuff Size: Large 12-06-2015 09:19-0400 BSA (Body Surface Area) 1.62 m2 Mirella Mccracken [facility] Internal Medicine Work Phone: 12-06-2015 09:19-0400 Height 149.86 cm Mirella Mccracken [facility] Internal Medicine Work Phone: 12-06-2015 09:19-0400 Pulse (Heart Rate) 73 /min Mirella Mccracken [facility] Internal Medicine Work Phone: Comment on above: Pattern: Regular 12-06-2015 09:19-0400 Pulse Oximetry 99 % Mirella Mccracken [facility] Internal Medicine Work Phone: Comment on above: Room air 12-06-2015 09:19-0400 Respiratory Rate 18 /min Mirella Mccracken [facility] Internal Medicine Work Phone: Comment on above: Pattern: Unlabored 12-06-2015 09:19-0400 Weight 67.13 kg Mirella Mccracken [facility] Internal Medicine Work Phone: 11-29-2015 09:09-0400 BMI (Body Mass Index) 29.72 kg/m2 Mirella Mccracken [facility] Internal Medicine Work Phone: 11-29-2015 09:09-0400 Body Temperature 98.2 [degF] Mirella Mccracken [facility] Internal Medicine Work Phone: Comment on above: Method: Oral 11-29-2015 09:09-0400 Body weight 66.74 kg Mirella Mccracken [facility] Internal Medicine Work Phone: 11-29-2015 09:09-0400 BP Diastolic 58 mm[Hg] Mirella Mccracken [facility] Internal Medicine Work Phone: Comment on above: Patient Position: Sitting; Cuff Location : Left Arm; Cuff Size: Large 11-29-2015 09:09-0400 BP Systolic 100 mm[Hg] Mirella Mccracken [facility] Internal Medicine Work Phone: Comment on above: Patient Position: Sitting; Cuff Location : Left Arm; Cuff Size: Large 11-29-2015 09:09-0400 BSA (Body Surface Area) 1.62 m2 Mirella Mccracken [facility] Internal Medicine Work Phone: 11-29-2015 09:09-0400 Height 149.86 cm Mirella Mccracken [facility] Internal Medicine Work Phone: 11-29-2015 09:09-0400 Pulse (Heart Rate) 71 /min Mirella Mccracken [facility] Internal Medicine Work Phone: Comment on above: Pattern: Regular 11-29-2015 09:09-0400 Pulse Oximetry 98 % Mirella Mccracken [facility] Internal Medicine Work Phone: Comment on above: Room air 11-29-2015 09:09-0400 Respiratory Rate 18 /min Mirella Mccracken [facility] Internal Medicine Work Phone: Comment on above: Pattern: Unlabored 11-29-2015 09:09-0400 Weight 66.74 kg Mirella Mccracken [facility] Internal Medicine Work Phone: 10-24-2015 10:01-0500 BMI (Body Mass Index) 30.78 kg/m2 Mirella Mccracken [facility] Internal Medicine Work Phone: Comment on above: [facility] 10:01-0500 Body weight 69.12 kg [facility]: Comment on above: [facility]-2015 10:01-0500 BP Diastolic 82 mm[Hg] Mirella [facility] Internal Medicine Work Phone: Comment on above: Patient Position: Sitting; Cuff Location : Left Arm; Cuff Size: [facility]-24-2015 10:01-0500 BP Systolic 124 mm[Hg] [facility] Work [facility]: Comment on above: Patient Position: Sitting; Cuff Location : Left Arm; Cuff Size: Large [facility] 10:01-0500 BSA (Body Surface Area) 1.64 m2 [facility]: Comment on above: [facility] 10:01-0500 Height 149.86 cm Mirella [facility] Internal Medicine Work Phone: Comment on above: [facility]-2015 10:01-0500 Pulse (Heart Rate) 66 /min Mirella [facility] Internal Medicine Work Phone: Comment on above: Pattern: Regular [facility]sten[facility] 10-24-2015 10:01-0500 Pulse Oximetry 98 % Mirella [facility] Internal Medicine Work Phone: Comment on above: Room air Dr[facility] Goldstein [facility] 10-24-2015 10:01-0500 Respiratory Rate 18 /min Mirella [facility] Internal Medicine Work Phone: Comment on above: Pattern: Unlabored Dr[facility]stein [facility] 10-24-2015 10:01-0500 Weight 69.12 kg Mirella [facility] Internal Medicine Work Phone: Comment on above: [facility] 07-26-2015 10:22-0500 BMI (Body Mass Index) 32.32 kg/m2 Mirellazac [facility]ccracken [facility] Internal Medicine Work Phone: 07-26-2015 10:22-0500 Body weight 72.58 kg Mirella [facility] Internal Medicine Work Phone: 07-26-2015 10:22-0500 BP Diastolic 80 mm[Hg] [facility] Internal Medicine Work Phone: Comment on above: Patient Position: Sitting; Cuff Location : Left Arm; Cuff Size: Large 07-26-2015 10:22-0500 BP Systolic 138 mm[Hg] [facility] Internal Medicine Work Phone: Comment on above: Patient Position: Sitting; Cuff Location : Left Arm; Cuff Size: Large 07-26-2015 10:22-0500 BSA (Body Surface Area) 1.68 m2 [facility] Internal Medicine Work Phone: 07-26-2015 10:22-0500 Height [...] (Body Mass Index) 31.02 kg/m2 Mirella [facility] Internal Medicine Work Phone: 04-19-2015 10:10-0400 Body Temperature 97.5 [degF] Mirella Mccracken [facility] Internal Medicine Work Phone: Comment on above: Method: Temporal 04-19-2015 10:10-0400 Body weight 69.67 kg Mirella Mccracken [facility] Internal Medicine Work Phone: 04-19-2015 10:10-0400 BP Diastolic 82 mm[Hg] Mirella Mccracken [facility] Internal Medicine Work Phone: Comment on above: Patient Position: Sitting; Cuff Location : Left Arm; Cuff Size: Standard 04-19-2015 10:10-0400 BP Systolic 124 mm[Hg] Mirella Mccracken [facility] Internal Medicine Work Phone: Comment on above: Patient Position: Sitting; Cuff Location : Left Arm; Cuff Size: Standard 04-19-2015 10:10-0400 BSA (Body Surface Area) 1.65 m2 Mirella Mccracken [facility] Internal Medicine Work Phone: 04-19-2015 10:10-0400 Height 149.86 cm Mirella Mccracken [facility] Internal Medicine Work Phone: 04-19-2015 10:10-0400 Pulse (Heart Rate) 62 /min Mirella Mccracken [facility] Internal Medicine Work Phone: Comment on above: Pattern: Regular 04-19-2015 10:10-0400 Pulse Oximetry 98 % Mirella Mccracken [facility] Internal Medicine Work Phone: Comment on above: Room air 04-19-2015 10:10-0400 Respiratory Rate 16 /min Mirella Mccracken [facility] Internal Medicine Work Phone: Comment on above: Pattern: Unlabored 04-19-2015 10:10-0400 Weight 69.67 kg Mirella Mccracken [facility] Internal Medicine Work Phone: 01-11-2015 10:29-0400 BMI (Body Mass Index) 31.2 kg/m2 Mirella [facility] Internal Medicine Work Phone: 01-11-2015 10:29040 Body weight 70.08 kg Mirella Mccracken [facility] Internal Medicine Work Phone: 01-11-2015 10:29-0400 BP Diastolic 80 mm[Hg] Mirella Mccracken [facility] Internal Medicine Work Phone: Comment on above: Patient Position: Sitting; Cuff Location : Left Arm; Cuff Size: Standard 01-11-2015 10:29-0400 BP Systolic 128 mm[Hg] Mirella Mccracken [facility] Internal Medicine Work Phone: Comment on above: Patient Position: Sitting; Cuff Location : Left Arm; Cuff Size: Standard 01-11-2015 10:290400 BSA (Body Surface Area) 1.65 m2 Mirella Mccracken [facility] Internal Medicine Work Phone: 01-11-2015 10:29-0400 Height 149.86 cm Mirella Mccracken [facility] Internal Medicine Work Phone: 01-11-2015 10:29-0400 Pulse (Heart Rate) 56 /min Mirella Mccracken [facility] Internal Medicine Work Phone: Comment on above: Pattern: Regular 01-11-2015 10:29-0400 Pulse Oximetry 98 % Mirella Mccracken [facility] Internal Medicine Work Phone: Comment on above: Room air 01-11-2015 10:29-0400 Respiratory Rate 18 /min Mirella Mccracken [facility] Internal Medicine Work Phone: Comment on above: Pattern: Unlabored 01-11-2015 10:29-0400 Weight 70.08 kg Mirella Mccracken [facility] Internal Medicine Work Phone: 10-31-2014 11:54-0500 Body Temperature 98.4 [degF] Mirella Mccracken [facility] Internal Medicine Work Phone: Comment on [...] Respiratory Rate 18 /min Mirella Mccracken [facility] Internal Medicine Work Phone: Comment on above: Pattern: Unlabored 10-31-2014 11:54-0500 Weight 70.76 kg Mirella [facility] Work Phone: 10-12-2014 10:10-0500 Body Temperature 96.2 [degF] Mirella [facility] Internal Medicine Work Phone: Comment on above: Method: Oral [facility] [place] [facility] 03/2014[facility] 10-12-2014 10:10-0500 Body weight 70.76 kg Mirella [facility] Internal Medicine Work Phone: Comment on above: [facility] 03/2014[facility] 10-12-2014 10:10-0500 BP Diastolic 82 mm[Hg] Mirella [facility] Work Phone: Comment on above: Patient Position: Sitting; Cuff Location : Left Arm; Cuff Size: Large [facility] 03/2014[facility] 10-12-2014 10:10-0500 BP Systolic 132 mm[Hg] Mirella [facility] Medicine Work Phone: Comment on above: Patient Position: Sitting; Cuff Location : Left Arm; Cuff Size: Large [facility] 03/2014[facility] 10-12-2014 10:10-0500 Pulse (Heart Rate) 61 /min Mirella [facility] Work Phone: Comment on above: Pattern: Regular [facility] 03/2014[facility] 10-12-2014 10:10-0500 Pulse Oximetry 96 % Mirella [facility] Work Phone: Comment on above: Room air [facility] 03/2014[facility] 10-12-2014 10:10-0500 Respiratory Rate 18 /min Mirella [facility] Work Phone: Comment on above: Pattern: Unlabored [facility] 03/2014[facility] 10-12-2014 10:10-0500 Weight 70.76 kg Mirella [facility] Work Phone: Comment on above: [facility] 03/2014[facility] 08-31-2014 11:25-0500 Body weight 68.66 kg [...] 11:25-0500 Weight 68.66 kg Mirella Mccracken [facility] Internal Medicine Work Phone: 08-14-2014 14:10-0500 Body Temperature 97.3 [degF] Mirella Mccracken [facility] Internal Medicine Work Phone: Comment on above: Method: Oral 08-14-2014 14:10-0500 Body weight 69.15 kg Mirella Mccracken [facility] Internal Medicine Work Phone: 08-14-2014 14:10-0500 BP Diastolic 72 mm[Hg] Mirella Mccracken [facility] Internal Medicine Work Phone: Comment on above: Patient Position: Sitting; Cuff Location : Left Arm; Cuff Size: Standard 08-14-2014 14:10-0500 BP Systolic 132 mm[Hg] Mirella Mccracken [facility] Internal Medicine Work Phone: Comment on above: Patient Position: Sitting; Cuff Location : Left Arm; Cuff Size: Standard 08-14-2014 14:10-0500 Pulse (Heart Rate) 53 /min Mirella Mccracken [facility] Internal Medicine Work Phone: Comment on above: Pattern: Regular 08-14-2014 14:10-0500 Pulse Oximetry 97 % Mirella Mccracken [facility] Internal Medicine Work Phone: Comment on above: Room air 08-14-2014 14:10-0500 Respiratory Rate 16 /min Mirella Mccracken [facility] Internal Medicine Work Phone: Comment on above: Pattern: Unlabored 08-14-2014 14:10-0500 Weight 69.15 kg Mirella Mccracken [facility] Internal Medicine Work Phone: 07-26-2014 10:15-0500 BMI (Body Mass Index) 30.55 kg/m2 Mirella [facility] Internal Medicine Work Phone: 07-26-2014 10:15-0500 Body Temperature 97.4 [degF] Mirella Mccracken [facility] Internal Medicine Work Phone: Comment on above: Method: Oral 07-26-2014 10:15-0500 Body weight 68.61 kg Mirella Mccracken [facility] Internal Medicine Work Phone: 07-26-2014 10:15-0500 BP Diastolic 70 mm[Hg] Mirella Mccracken [facility] Internal Medicine Work Phone: Comment on above: Patient Position: Sitting; Cuff Location : Left Arm; Cuff Size: Standard 07-26-2014 10:15-0500 BP Systolic 110 mm[Hg] Mirella Mccracken [facility] Internal Medicine Work Phone: Comment on above: Patient Position: Sitting; Cuff Location : Left Arm; Cuff Size: Standard 07-26-2014 10:15-0500 BSA (Body Surface Area) 1.64 m2 Mirella Mccracken [facility] Internal Medicine Work Phone: 07-26-2014 10:15-0500 Height 149.86 cm Mirella Mccracken [facility] Internal Medicine Work Phone: 07-26-2014 10:15-0500 Pulse (Heart Rate) 66 /min Mirella Mccracken [facility] Internal Medicine Work Phone: Comment on above: Pattern: Regular 07-26-2014 10:15-0500 Pulse Oximetry 95 % Mirella Mccracken [facility] Internal Medicine Work Phone: Comment on above: Room air 07-26-2014 10:15-0500 Respiratory Rate 15 /min Mirella Mccracken [facility] Internal Medicine Work Phone: 07-26-2014 10:15-0500 Weight 68.61 kg Mirella Mccracken [facility] Internal Medicine Work Phone: 07-25-2014 14:56-0500 BMI (Body Mass Index) 30.55 kg/m2 Mirella [facility] Internal Medicine Work Phone: 07-25-2014 14:56-0500 Body weight 68.61 kg Mirella Mccracken [facility] Internal Medicine Work Phone: 07-25-2014 14:56-0500 BP Diastolic 80 mm[Hg] Mirella Mccracken [facility] Internal Medicine Work Phone: Comment on above: Patient Position: Sitting; Cuff Location : Left Arm; Cuff Size: Large 07-25-2014 14:56-0500 BP Systolic 140 mm[Hg] Mirella Mccracken [facility] Internal Medicine Work Phone: Comment on above: Patient Position: Sitting; Cuff Location : Left Arm; Cuff Size: Large 07-25-2014 14:56-0500 BSA (Body Surface Area) 1.64 m2 Mirella Mccracken [facility] Internal Medicine Work Phone: 07-25-2014 14:56-0500 Height 149.86 cm Mirella Mccracken [facility] Internal Medicine Work Phone: 07-25-2014 14:56-0500 Pulse (Heart Rate) 59 /min Mirella Mccracken [facility] Internal Medicine Work Phone: Comment on above: Pattern: Regular 07-25-2014 14:56-0500 Pulse Oximetry 98 % Mirella Mccracken [facility] Internal Medicine Work Phone: Comment on above: Room air 07-25-2014 14:56-0500 Respiratory Rate 18 /min Mirella Mccracken [facility] Internal Medicine Work Phone: Comment on above: Pattern: Unlabored 07-25-2014 14:56-0500 Weight 68.61 kg Mirella Mccracken [facility] Internal Medicine Work Phone: 07-13-2014 12:20-0400 BMI (Body Mass Index) 30.5 kg/m2 Mirella [facility] Internal Medicine Work Phone: 07-13-2014 12:20-0400 Body weight 68.49 kg Mirella Mccracken [facility] Internal Medicine Work Phone: 07-13-2014 12:20-0400 BP Diastolic 78 mm[Hg] Mirella Mccracken [facility] Internal Medicine Work Phone: Comment on above: Patient Position: Sitting; Cuff Location : Left Arm; Cuff Size: Large 07-13-2014 12:20-0400 BP Systolic 138 mm[Hg] Mirella Mccracken [facility] Internal Medicine Work Phone: Comment on above: Patient Position: Sitting; Cuff Location : Left Arm; Cuff Size: Large 07-13-2014 12:20-0400 BSA (Body Surface Area) 1.64 m2 Mirella Mccracken [facility] Internal Medicine Work Phone: 07-13-2014 12:20-0400 Height 149.86 cm Mirella Mccracken [facility] Internal Medicine Work Phone: 07-13-2014 12:20-0400 Pulse (Heart Rate) 58 /min Mirella Mccracken [facility] Internal Medicine Work Phone: Comment on above: Pattern: Regular 07-13-2014 12:20-0400 Pulse Oximetry 96 % Mirella Mccracken [facility] Internal Medicine Work Phone: Comment on above: Room air 07-13-2014 12:20-0400 Respiratory Rate 20 /min Mirella Mccracken [facility] Internal Medicine Work Phone: Comment on above: Pattern: Unlabored 07-13-2014 12:20-0400 Weight 68.49 kg Mirella Mccracken [facility] Internal Medicine Work Phone: 04-17-2014 11:27-0400 BMI (Body Mass Index) 30.59 kg/m2 Mirella [facility] Internal Medicine Work Phone: 04-17-2014 11:27-0400 Body weight 68.69 kg Mirella Mccracken [facility] Internal Medicine Work Phone: 04-17-2014 11:27-0400 BP Diastolic 70 mm[Hg] Mierlla Mccracken [facility] Internal Medicine Work Phone: Comment on above: Patient Position: Sitting; Cuff Location : Left Arm; Cuff Size: Large 04-17-2014 11:27-0400 BP Systolic 124 mm[Hg] Mirella Mccracken [facility] Internal Medicine Work Phone: Comment on above: Patient Position: Sitting; Cuff Location : Left Arm; Cuff Size: Large 04-17-2014 11:27-0400 BSA (Body Surface Area) 1.64 m2 Mirella Mccracken [facility] Internal Medicine Work Phone: 04-17-2014 11:27-0400 Height 149.86 cm Mirella Mccracken [facility] Internal Medicine Work Phone: 04-17-2014 11:27-0400 Pulse (Heart Rate) 72 /min Mirella Mccracken [facility] Internal Medicine Work Phone: Comment on above: Pattern: Regular 04-17-2014 11:27-0400 Pulse Oximetry 97 % Mirella Mccracken [facility] Internal Medicine Work Phone: Comment on above: Room air 04-17-2014 11:27-0400 Respiratory Rate 18 /min Mirella Mccracken [facility] Internal Medicine Work Phone: Comment on above: Pattern: Unlabored 04-17-2014 11:27-0400 Weight 68.69 kg Mirella Mccracken [facility] Internal Medicine Work Phone: 04-06-2014 11:09-0400 BMI (Body Mass Index) 30.59 kg/m2 Mirella Mccracken [facility] Internal Medicine Work Phone: 04-06-2014 11:09-0400 Body weight 68.69 kg Mirella Mccracken [facility] Internal Medicine Work Phone: 04-06-2014 11:09-0400 BP Diastolic 80 mm[Hg] Mirella Mccracken [facility] Internal Medicine Work Phone: Comment on above: Patient Position: Sitting; Cuff Location : Left Arm; Cuff Size: Standard 04-06-2014 11:09-0400 BP Systolic 142 mm[Hg] Mirella Mccracken [facility] Internal Medicine Work Phone: Comment on above: Patient Position: Sitting; Cuff Location : Left Arm; Cuff Size: Standard 04-06-2014 11:090400 BSA (Body Surface Area) 1.64 m2 Mirella Mccracken [facility] Internal Medicine Work Phone: 04-06-2014 11:090400 Height 149.86 cm Mirella Mccracken [facility] Internal Medicine Work Phone: 04-06-2014 11:09-0400 Pulse (Heart Rate) 73 /min Mirella Mccracken [facility] Internal Medicine Work Phone: Comment on above: Pattern: Regular 04-06-2014 11:090400 Pulse Oximetry 97 % Mirella Mccracken [facility] Internal Medicine Work Phone: Comment on above: Room air 04-06-2014 11:09-0400 Respiratory Rate 18 /min Mirella Mccracken [facility] Internal Medicine Work Phone: Comment on above: Pattern: Unlabored 04-06-2014 11:09-0400 Weight 68.69 kg Mirella Mccracken [facility] Internal Medicine Work Phone: 12-30-2013 10:27-0400 BMI (Body Mass Index) 32.03 kg/m2 Mirella Mccracken [facility] Internal Medicine Work Phone: 12-30-2013 10:27-0400 Body Temperature 98.2 [degF] Mirella Mccracken [facility] Internal Medicine Work Phone: Comment on above: Method: Oral 12-30-2013 10:27-0400 Body weight 71.92 kg Mirella Mccracken [facility] Internal Medicine Work Phone: 12-30-2013 10:27-0400 BP Diastolic 70 mm[Hg] Mirella Mccracken [facility] Internal Medicine Work Phone: Comment on above: Patient Position: Sitting; Cuff Location : Left Arm; Cuff Size: Large 12-30-2013 10:27-0400 BP Systolic 120 mm[Hg] Mirella Mccracken [facility] Internal Medicine Work Phone: Comment on above: Patient Position: Sitting; Cuff Location : Left Arm; Cuff Size: Large 12-30-2013 10:27-0400 BSA (Body Surface Area) 1.67 m2 Mirella Mccracken [facility] Internal Medicine Work Phone: 12-30-2013 10:27-0400 Height 149.86 cm Mirella Mccracken [facility] Internal Medicine Work Phone: 12-30-2013 10:27-0400 Pulse (Heart Rate) 66 /min Mirella Mccracken [facility] Internal Medicine Work Phone: Comment on above: Pattern: Regular 12-30-2013 10:270400 Pulse Oximetry 97 % Mirella Mccracken [facility] Internal Medicine Work Phone: Comment on above: Room air 12-30-2013 10:27-0400 Respiratory Rate 20 /min Mirella Mccracken [facility] Internal Medicine Work Phone: Comment on above: Pattern: Unlabored 12-30-2013 10:27-0400 Weight 71.92 kg Mirella Mccracken [facility] Internal Medicine Work Phone: 12-22-2013 10:09-0400 BMI (Body Mass Index) 31.79 kg/m2 Mirella Mccracken [facility] Internal Medicine Work Phone: 12-22-2013 10:090400 Body Temperature 98.2 [degF] Mirella Mccracken [facility] Internal Medicine Work Phone: Comment on above: Method: Oral 12-22-2013 10:0400 Body weight 71.39 kg Mirella Mccracken [facility] Internal Medicine Work Phone: 12-22-2013 10:09-0400 BP Diastolic 60 mm[Hg] Mirella Mccracken [facility] Internal Medicine Work Phone: Comment on above: Patient Position: Sitting; Cuff Location : Left Arm; Cuff Size: Large 12-22-2013 10:09-0400 BP Systolic 104 mm[Hg] Mirella Mccracken [facility] Internal Medicine Work Phone: Comment on above: Patient Position: Sitting; Cuff Location : Left Arm; Cuff Size: Large 12-22-2013 10:090400 BSA (Body Surface Area) 1.67 m2 Mirella Mccracken [facility] Internal Medicine Work Phone: 12-22-2013 10:090400 Height 149.86 cm Mirella Mccracken [facility] Internal Medicine Work Phone: 12-22-2013 10:09-0400 Pulse (Heart Rate) 65 /min Mirella Mccracken [facility] Internal Medicine Work Phone: Comment on above: Pattern: Regular 12-22-2013 10:090400 Pulse Oximetry 98 % Mirella Mccracken [facility] Internal Medicine Work Phone: Comment on above: Room air 12-22-2013 10:090400 Respiratory Rate 20 /min Mirella Mccracken [facility] Internal Medicine Work Phone: Comment on above: Pattern: Unlabored 12-22-2013 10:09-0400 Weight 71.39 kg Mirella Mccracken [facility] Internal Medicine Work Phone: 12-01-2013 09:54-0400 BMI (Body Mass Index) 32.32 kg/m2 Mirella [facility] Internal Medicine Work Phone: 12-01-2013 09:54-0400 Body Temperature 98.4 [degF] Mirella Mccracken [facility] Internal Medicine Work Phone: Comment on above: Method: Temporal 12-01-2013 09:54-0400 Body weight 72.58 kg Mirella Mccracken [facility] Internal Medicine Work Phone: 12-01-2013 09:54-0400 BP Diastolic 62 mm[Hg] Mirella Mccracken [facility] Internal Medicine Work Phone: Comment on above: Patient Position: Sitting; Cuff Location : Left Arm; Cuff Size: Standard 12-01-2013 09:54-0400 BP Systolic 124 mm[Hg] Mirella Mccracken [facility] Internal Medicine Work Phone: Comment on above: Patient Position: Sitting; Cuff Location : Left Arm; Cuff Size: Standard 12-01-2013 09:54-0400 BSA (Body Surface Area) 1.68 m2 Mirella Mccracken [facility] Internal Medicine Work Phone: 12-01-2013 09:54-0400 Height 149.86 cm Mirella Mccracken [facility] Internal Medicine Work Phone: 12-01-2013 09:54-0400 Pulse (Heart Rate) 69 /min Mirella Mccracken [facility] Internal Medicine Work Phone: Comment on above: Pattern: Regular 12-01-2013 09:54-0400 Pulse Oximetry 97 % Mirella Mccracken [facility] Internal Medicine Work Phone: Comment on above: Room air 12-01-2013 09:54-0400 Respiratory Rate 16 /min Mirella Mccracken [facility] Internal Medicine Work Phone: Comment on above: Pattern: Unlabored 12-01-2013 09:54-0400 Weight 72.58 kg Mirella Mccracken [facility] Internal Medicine Work Phone: 09-23-2013 11:57-0500 BMI (Body Mass Index) 33.01 kg/m2 Mirella [facility] Internal Medicine Work Phone: 09-23-2013 11:57-0500 Body weight 74.14 kg Mirella Mccracken [facility] Internal Medicine Work Phone: 09-23-2013 11:57-0500 BP Diastolic 80 mm[Hg] Mirella Mccracken [facility] Internal Medicine Work Phone: Comment on above: Patient Position: Sitting; Cuff Location : Left Arm; Cuff Size: Large 09-23-2013 11:57-0500 BP Systolic 122 mm[Hg] Mirella Mccracken [facility] Internal Medicine Work Phone: Comment on above: Patient Position: Sitting; Cuff Location : Left Arm; Cuff Size: Large 09-23-2013 11:57-0500 BSA (Body Surface Area) 1.69 m2 Mirella Mccracken [facility] Internal Medicine Work Phone: 09-23-2013 11:57-0500 Height 149.86 cm Mirella Mccracken [facility] Internal Medicine Work Phone: 09-23-2013 11:57-0500 Pulse (Heart Rate) 66 /min Mirella Mccracken [facility] Internal Medicine Work Phone: Comment on above: Pattern: Regular 09-23-2013 11:57-0500 Pulse Oximetry 98 % Mirella Mccracken [facility] Internal Medicine Work Phone: Comment on above: Room air 09-23-2013 11:57-0500 Respiratory Rate 18 /min Mirella Mccracken [facility] Internal Medicine Work Phone: Comment on above: Pattern: Unlabored 09-23-2013 11:57-0500 Weight 74.14 kg Mirella Mccracken [facility] Internal Medicine Work Phone: 08-01-2013 10:54-0500 BMI (Body Mass Index) 33.58 kg/m2 Mirella [facility] Internal Medicine Work Phone: 08-01-2013 10:54-0500 Body Temperature 98.3 [degF] Mirella Mccracken [facility] Internal Medicine Work Phone: Comment on above: Method: Oral 08-01-2013 10:54-0500 Body weight 75.41 kg Mirella Mccracken [facility] Internal Medicine Work Phone: 08-01-2013 10:54-0500 BP Diastolic 60 mm[Hg] Mirella Mccracken [facility] Internal Medicine Work Phone: Comment on above: Patient Position: Sitting; Cuff Location : Left Arm; Cuff Size: Large 08-01-2013 10:54-0500 BP Systolic 102 mm[Hg] Mirella Mccracken [facility] Internal Medicine Work Phone: Comment on above: Patient Position: Sitting; Cuff Location : Left Arm; Cuff Size: Large 08-01-2013 10:54-0500 BSA (Body Surface Area) 1.7 m2 Mirella Mccracken [facility] Internal Medicine Work Phone: 08-01-2013 10:54-0500 Height 149.86 cm Mirella Mccracken [facility] Internal Medicine Work Phone: 08-01-2013 10:54-0500 Pulse (Heart Rate) 68 /min Mirella Mccracken [facility] Internal Medicine Work Phone: Comment on above: Pattern: Regular 08-01-2013 10:54-0500 Pulse Oximetry 97 % Mirella Mccracken [facility] Internal Medicine Work Phone: Comment on above: Room air 08-01-2013 10:54-0500 Respiratory Rate 20 /min Mirella Mccracken [facility] Internal Medicine Work Phone: Comment on above: Pattern: Unlabored 08-01-2013 10:54-0500 Weight 75.41 kg Mirella Mccracken [facility] Internal Medicine Work Phone: 07-04-2013 09:33-0400 BMI (Body Mass Index) 33.73 kg/m2 Mirella Mccracken [facility] Internal Medicine Work Phone: Comment on above: hearing wnlvision Dr. Jones 07-04-2013 09:33-0400 Body Temperature 98.2 [degF] [facility] Internal Medicine Work Phone: Comment on above: Method: Oral hearing wnlvision Dr Samaria Jones 07-04-2013 09:33-0400 Body weight 75.75 kg [facility] Work Phone: Comment on above: hearing wnlvision Dr. Jones 07-04-2013 09:33-0400 BP Diastolic 62 mm[Hg] [facility] Internal Medicine Work Phone: Comment on above: Patient Position: Sitting; Cuff Location : Left Arm; Cuff Size: Large hearing wnlvision Dr Samaria Jones 07-04-2013 09:33-0400 BP Systolic 120 mm[Hg] [facility] Internal Medicine Work Phone: Comment on above: Patient Position: Sitting; Cuff Location : Left Arm; Cuff Size: Large hearing yazminlvision Dr Samaria Jones 07-04-2013 09:33-0400 BSA (Body Surface Area) 1.71 m2 [facility] Medicine Work Phone: Comment on above: hearing wnlvision Dr. Jones 07-04-2013 09:33-0400 Height 149.86 cm [facility] Internal Medicine Work Phone: Comment on above: hearing wnlvision Dr. Jones 07-04-2013 09:33-0400 Pulse (Heart Rate) 52 /min [facility] Medicine Work Phone: Comment on above: Pattern: Regular hearing wnlvision Dr Samaria Jones 07-04-2013 09:33-0400 Pulse Oximetry 97 % [facility] Medicine Work Phone: Comment on above: Room air hearing wnlvision Dr Samaria Jones 07-04-2013 09:33-0400 Respiratory Rate 20 /min [facility] Internal Medicine Work Phone: Comment on above: Pattern: Unlabored hearing wnlvision Dr Samaria Jones 07-04-2013 09:33-0400 Weight 75.75 kg [facility] Medicine Work Phone: Comment on above: hearing wnlvision Dr. Jones 06-27-2013 14:49-0400 BMI (Body Mass Index) 33.73 kg/m2 Mirella Solano [facility] Internal Medicine Work Phone: 06-27-2013 14:49-0400 Body weight 75.75 kg Mirella Mccracken [facility] Internal Medicine Work Phone: 06-27-2013 14:49-0400 BP Diastolic 62 mm[Hg] Mirella Mccracken [facility] Internal Medicine Work Phone: Comment on above: Patient Position: Sitting; Cuff Location : Left Arm; Cuff Size: Large 06-27-2013 14:49-0400 BP Systolic 128 mm[Hg] Mirella Mccracken [facility] Internal Medicine Work Phone: Comment on above: Patient Position: Sitting; Cuff Location : Left Arm; Cuff Size: Large 06-27-2013 14:49-0400 BSA (Body Surface Area) 1.71 m2 Mirella Mccracken [facility] Work Phone: 06-27-2013 14:49-0400 Height 149.86 cm Mirella Mccracken [facility] Internal Medicine Work Phone: 06-27-2013 14:49-0400 Pulse (Heart Rate) 61 /min Mirella Mccracken [facility] Internal Medicine Work Phone: Comment on above: Pattern: Regular 06-27-2013 14:49-0400 Pulse Oximetry 98 % Mirella Mccracken [facility] Internal Medicine Work Phone: Comment on above: Room air 06-27-2013 14:49-0400 Respiratory Rate 20 /min Mirella Mccracken [facility] Internal Medicine Work Phone: Comment on above: Pattern: Unlabored 06-27-2013 14:49-0400 Weight 75.75 kg Mirella Mccracken [facility] Internal Medicine Work Phone: 06-20-2013 12:56-0400 BMI (Body Mass Index) 33.53 kg/m2 Mirella Solano [facility] Internal Medicine Work Phone: 06-20-2013 12:56-0400 Body Temperature 97.6 [degF] Mirella Mccracken [facility] Internal Medicine Work Phone: Comment on above: Method: Oral 06-20-2013 12:56-0400 Body weight 75.3 kg Mirella Mccracken [facility] Internal Medicine Work Phone: 06-20-2013 12:56-0400 BP Diastolic 68 mm[Hg] Mirella Mccracken [facility] Internal Medicine Work Phone: Comment on above: Patient Position: Sitting; Cuff Location : Left Arm; Cuff Size: Standard 06-20-2013 12:56-0400 BP Systolic 118 mm[Hg] Mirella Mccracken [facility] Internal Medicine Work Phone: Comment on above: Patient Position: Sitting; Cuff Location : Left Arm; Cuff Size: Standard 06-20-2013 12:56-0400 BSA (Body Surface Area) 1.7 m2 Mirella Mccracken [facility] Internal Medicine Work Phone: 06-20-2013 12:56-0400 Height 149.86 cm Mirella Mccracken [facility] Internal Medicine Work Phone: 06-20-2013 12:56-0400 Pulse (Heart Rate) 68 /min Mirella Mccracken [facility] Internal Medicine Work Phone: Comment on above: Pattern: Regular 06-20-2013 12:56-0400 Respiratory Rate 20 /min Mirella Mccracken [facility] Internal Medicine Work Phone: Comment on above: Pattern: Unlabored 06-20-2013 12:56-0400 Weight 75.3 kg Mirella Mccracken [facility] Internal Medicine Work Phone: 05-20-2013 08:13-0400 BMI (Body Mass Index) 33.63 kg/m2 Mirella Mccracken [facility] Internal Medicine Work Phone: 05-20-2013 08:13-0400 Body weight 75.52 kg Mirella Mccracken [facility] Internal Medicine Work Phone: 05-20-2013 08:13-0400 BP Diastolic 62 mm[Hg] Mirella Mccracken [facility] Internal Medicine Work Phone: Comment on above: Patient Position: Sitting; Cuff Location : Left Arm; Cuff Size: Standard 05-20-2013 08:130400 BP Systolic 128 mm[Hg] Mirella Mccracken [facility] Internal Medicine Work Phone: Comment on above: Patient Position: Sitting; Cuff Location : Left Arm; Cuff Size: Standard 05-20-2013 08:13-0400 BSA (Body Surface Area) 1.71 m2 Mirella Mccracken [facility] Internal Medicine Work Phone: 05-20-2013 08:13-0400 Height 149.86 cm Mirella Mccracken [facility] Internal Medicine Work Phone: 05-20-2013 08:13-0400 Pulse (Heart Rate) 60 /min Mirella Mccracken [facility] Internal Medicine Work Phone: Comment on above: Pattern: Regular 05-20-2013 08:13-0400 Respiratory Rate 20 /min Mirella Mccracken [facility] Internal Medicine Work Phone: Comment on above: Pattern: Unlabored 05-20-2013 08:13-0400 Weight 75.52 kg Mirella Mccracken [facility] Internal Medicine Work Phone: 04-22-2013 15:16-0400 BMI (Body Mass Index) 33.63 kg/m2 Mirella Mccracken [facility] Internal Medicine Work Phone: 04-22-2013 15:16-0400 Body Temperature 96 [degF] Mirella Mccracken [facility] Internal Medicine Work Phone: Comment on above: Method: Oral 04-22-2013 15:16-0400 Body weight 75.52 kg Mirella Mccracken [facility] Internal Medicine Work Phone: 04-22-2013 15:16-0400 BP Diastolic 74 mm[Hg] Mirella Mccracken [facility] Internal Medicine Work Phone: Comment on above: Patient Position: Sitting; Cuff Location : Left Arm; Cuff Size: Large 04-22-2013 15:16-0400 BP Systolic 126 mm[Hg] Mirella Mccracken [facility] Internal Medicine Work Phone: Comment on above: Patient Position: Sitting; Cuff Location : Left Arm; Cuff Size: Large 04-22-2013 15:16-0400 BSA (Body Surface Area) 1.71 m2 Mirella Mccracken [facility] Internal Medicine Work Phone: 04-22-2013 15:16-0400 Height 149.86 cm Mirella Mccracken [facility] Internal Medicine Work Phone: 04-22-2013 15:16-0400 Pulse (Heart Rate) 64 /min Mirella Mccracken [facility] Internal Medicine Work Phone: Comment on above: Pattern: Regular 04-22-2013 15:16-0400 Respiratory Rate 18 /min Mirella Mccracken [facility] Internal Medicine Work Phone: Comment on above: Pattern: Unlabored 04-22-2013 15:16-0400 Weight 75.52 kg Mirella Mccracken [facility] Internal Medicine Work Phone: 04-15-2013 15:12-0400 BMI (Body Mass Index) 34.65 kg/m2 Mirella Mccracken [facility] Internal Medicine Work Phone: 04-15-2013 15:12-0400 Body Temperature 98 [degF] Mirella Mccracken [facility] Internal Medicine Work Phone: Comment on above: Method: Oral 04-15-2013 15:12-0400 Body weight 77.82 kg Mirella Mccracken [facility] Internal Medicine Work Phone: 04-15-2013 15:12-0400 BP Diastolic 70 mm[Hg] Mirella Mccracken [facility] Internal Medicine Work Phone: Comment on above: Patient Position: Sitting; Cuff Location : Left Arm; Cuff Size: Standard 04-15-2013 15:12-0400 BP Systolic 120 mm[Hg] Mirella Mccracken [facility] Internal Medicine Work Phone: Comment on above: Patient Position: Sitting; Cuff Location : Left Arm; Cuff Size: Standard 04-15-2013 15:12-0400 BSA (Body Surface Area) 1.73 m2 Mirella Mccracken [facility] Internal Medicine Work Phone: 04-15-2013 15:12-0400 Height 149.86 cm Mirella Mccracken [facility] Internal Medicine Work Phone: 04-15-2013 15:12-0400 Pulse (Heart Rate) 64 /min Mirella Mccracken [facility] Internal Medicine Work Phone: Comment on above: Pattern: Regular 04-15-2013 15:12-0400 Pulse Oximetry 98 % Mirella Mccracken [facility] Internal Medicine Work Phone: Comment on above: Room air 04-15-2013 15:12-0400 Weight 77.82 kg Mirella Mccracken [facility] Internal Medicine Work Phone: 03-31-2013 11:15-0400 BMI (Body Mass Index) 32.96 kg/m2 Mirella Mccracken [facility] Internal Medicine Work Phone: 03-31-2013 11:15-0400 Body Temperature 97.5 [degF] Mirella Mccracken [facility] Internal Medicine Work Phone: Comment on above: Method: Oral 03-31-2013 11:15-0400 Body weight 74.02 kg Mirella Mccracken [facility] Internal Medicine Work Phone: 03-31-2013 11:15-0400 BP Diastolic 60 mm[Hg] Mirella Mccracken [facility] Internal Medicine Work Phone: Comment on above: Patient Position: Sitting; Cuff Location : Left Arm; Cuff Size: Large 03-31-2013 11:15-0400 BP Systolic 118 mm[Hg] Mirella Mccracken [facility] Internal Medicine Work Phone: Comment on above: Patient Position: Sitting; Cuff Location : Left Arm; Cuff Size: Large 03-31-2013 11:15-0400 BSA (Body Surface Area) 1.69 m2 Mirella Mccracken [facility] Internal Medicine Work Phone: 03-31-2013 11:15-0400 Height 149.86 cm Mirella Mccracken [facility] Internal Medicine Work Phone: 03-31-2013 11:15-0400 Pulse (Heart Rate) 60 /min Mirella Mccracken [facility] Internal Medicine Work Phone: Comment on above: Pattern: Regular 03-31-2013 11:15-0400 Respiratory Rate 20 /min Mirella Mccracken [facility] Internal Medicine Work Phone: Comment on above: Pattern: Unlabored 03-31-2013 11:15-0400 Weight 74.02 kg Mirella Mccracken [facility] Internal Medicine Work Phone: 02-28-2013 09:53-0400 BMI (Body Mass Index) 32.57 kg/m2 Mirella Mccracken [facility] Internal Medicine Work Phone: 02-28-2013 09:53-0400 Body Temperature 98.3 [degF] Mirella Mccracken [facility] Internal Medicine Work Phone: Comment on above: Method: Oral 02-28-2013 09:53-0400 Body weight 73.14 kg Mirella Mccracken [facility] Internal Medicine Work Phone: 02-28-2013 09:53-0400 BP Diastolic 62 mm[Hg] Mirella Mccracken [facility] Internal Medicine Work Phone: Comment on above: Patient Position: Sitting; Cuff Location : Left Arm; Cuff Size: Large 02-28-2013 09:53-0400 BP Systolic 120 mm[Hg] Mirella Mccracken [facility] Internal Medicine Work Phone: Comment on above: Patient Position: Sitting; Cuff Location : Left Arm; Cuff Size: Large 02-28-2013 09:53-0400 BSA (Body Surface Area) 1.68 m2 Mirella Mccracken [facility] Internal Medicine Work Phone: 02-28-2013 09:53-0400 Height 149.86 cm Mirella Mccracken [facility] Internal Medicine Work Phone: 02-28-2013 09:53-0400 Pulse (Heart Rate) 60 /min Mirella Mccracken [facility] Internal Medicine Work Phone: Comment on above: Pattern: Regular 02-28-2013 09:53-0400 Respiratory Rate 18 /min Mirella Mccracken [facility] Internal Medicine Work Phone: Comment on above: Pattern: Unlabored 02-28-2013 09:53-0400 Weight 73.14 kg Mirella Mccracken [facility] Internal Medicine Work Phone: 11-15-2012 14:01-0500 BMI (Body Mass Index) 32.57 kg/m2 [facility] Work Phone: 11-15-2012 14:01-0500 Body Temperature 97.9 [degF] Mirella Mccracken [facility] Internal Medicine Work Phone: Comment on above: Method: Oral 11-15-2012 14:-0500 Body weight 73.14 kg Mirella Mccracken [facility] Internal Medicine Work Phone: 11-15-2012 14:01-0500 BP Diastolic 78 mm[Hg] Mirella Mccracken [facility] Internal Medicine Work Phone: Comment on above: Patient Position: Sitting; Cuff Location : Left Arm; Cuff Size: Large 11-15-2012 14:01-0500 BP Systolic 122 mm[Hg] Mirella Mccracken [facility] Internal Medicine Work Phone: Comment on above: Patient Position: Sitting; Cuff Location : Left Arm; Cuff Size: Large 11-15-2012 14:01-0500 BSA (Body Surface Area) 1.68 m2 Mirella Mccracken [facility] Internal Medicine Work Phone: 11-15-2012 14:01-0500 Height 149.86 cm Mirella Mccracken [facility] Internal Medicine Work Phone: 11-15-2012 14:01-0500 Pulse (Heart Rate) 72 /min Mirella Mccracken [facility] Internal Medicine Work Phone: Comment on above: Pattern: Regular 11-15-2012 14:01-0500 Respiratory Rate 20 /min Mirella Mccracken [facility] Internal Medicine Work Phone: Comment on above: Pattern: Unlabored 11-15-2012 14:01-0500 Weight 73.14 kg Mirella Mccracken [facility] Internal Medicine Work Phone: 10-25-2012 11:26-0500 BMI (Body Mass Index) 32.74 kg/m2 Mirella Solano [facility] Internal Medicine Work Phone: 10-25-2012 11:26-0500 Body Temperature 98.3 [degF] Mirella Mccracken [facility] Internal Medicine Work Phone: Comment on above: Method: Oral 10-25-2012 11:26-0500 Body weight 73.54 kg Mirella Mccracken [facility] Internal Medicine Work Phone: 10-25-2012 11:26-0500 BP Diastolic 62 mm[Hg] Mirella Mccracken [facility] Internal Medicine Work Phone: Comment on above: Patient Position: Sitting; Cuff Location : Right Arm; Cuff Size: Large 10-25-2012 11:26-0500 BP Systolic 144 mm[Hg] Mirella Mccracken [facility] Internal Medicine Work Phone: Comment on above: Patient Position: Sitting; Cuff Location : Right Arm; Cuff Size: Large 10-25-2012 11:26-0500 BSA (Body Surface Area) 1.69 m2 Mirella Mccracken [facility] Internal Medicine Work Phone: 10-25-2012 11:26-0500 Height 149.86 cm Mirella Mccracken [facility] Internal Medicine Work Phone: 10-25-2012 11:26-0500 Pulse (Heart Rate) 72 /min Mirella Mccracken [facility] Internal Medicine Work Phone: Comment on above: Pattern: Regular 10-25-2012 11:26-0500 Respiratory Rate 20 /min Mirella Mccracken [facility] Internal Medicine Work Phone: Comment on above: Pattern: Unlabored 10-25-2012 11:26-0500 Weight 73.54 kg Mirella Mccracken [facility] Internal Medicine Work Phone: 10-21-2012 09:46-0500 BMI (Body Mass Index) 32.74 kg/m2 Mirella Mccracken [facility] Internal Medicine Work Phone: 10-21-2012 09:46-0500 Body Temperature 97.6 [degF] Mirella Mccracken [facility] Internal Medicine Work Phone: Comment on above: Method: Oral 10-21-2012 09:46-0500 Body weight 73.54 kg Mirella Mccracken [facility] Internal Medicine Work Phone: 10-21-2012 09:46-0500 BP Diastolic 62 mm[Hg] Mirella Mccracken [facility] Internal Medicine Work Phone: Comment on above: Patient Position: Sitting; Cuff Location : Left Arm; Cuff Size: Large 10-21-2012 09:46-0500 BP Systolic 120 mm[Hg] Mirella Mccracken [facility] Internal Medicine Work Phone: Comment on above: Patient Position: Sitting; Cuff Location : Left Arm; Cuff Size: Large 10-21-2012 09:46-0500 BSA (Body Surface Area) 1.69 m2 Mirella Mccracken [facility] Internal Medicine Work Phone: 10-21-2012 09:46-0500 Height 149.86 cm Mirella Mccracken [facility] Internal Medicine Work Phone: 10-21-2012 09:46-0500 Pulse (Heart Rate) 64 /min Mirella Mccracken [facility] Internal Medicine Work Phone: Comment on above: Pattern: Regular 10-21-2012 09:46-0500 Respiratory Rate 20 /min Mirella Mccracken [facility] Internal Medicine Work Phone: Comment on above: Pattern: Unlabored 10-21-2012 09:46-0500 Weight 73.54 kg Mirella Mccracken [facility] Internal Medicine Work Phone: 09-30-2012 09:48-0500 BMI (Body Mass Index) 32.74 kg/m2 Mirella Mccracken [facility] Internal Medicine Work Phone: 09-30-2012 09:48-0500 Body Temperature 98.2 [degF] Mirella Mccracken [facility] Internal Medicine Work Phone: Comment on above: Method: Oral 09-30-2012 09:48-0500 Body weight 73.54 kg Mirella Mccracken [facility] Internal Medicine Work Phone: 09-30-2012 09:48-0500 BP Diastolic 76 mm[Hg] Mirella Mccracken [facility] Internal Medicine Work Phone: Comment on above: Patient Position: Sitting; Cuff Location : Left Arm; Cuff Size: Standard 09-30-2012 09:48-0500 BP Systolic 122 mm[Hg] Mirella Mccracken [facility] Internal Medicine Work Phone: Comment on above: Patient Position: Sitting; Cuff Location : Left Arm; Cuff Size: Standard 09-30-2012 09:48-0500 BSA (Body Surface Area) 1.69 m2 Mirella Mccracken [facility] Internal Medicine Work Phone: 09-30-2012 09:48-0500 Height 149.86 cm Mirella Mccracken [facility] Internal Medicine Work Phone: 09-30-2012 09:48-0500 Pulse (Heart Rate) 58 /min Mirella Mccracken [facility] Internal Medicine Work Phone: Comment on above: Pattern: Regular 09-30-2012 09:48-0500 Pulse Oximetry 98 % Mirella Mccracken [facility] Internal Medicine Work Phone: Comment on above: Room air 09-30-2012 09:48-0500 Respiratory Rate 16 /min Mirella Mccracken [facility] Internal Medicine Work Phone: Comment on above: Pattern: Unlabored 09-30-2012 09:48-0500 Weight 73.54 kg Mirella Mccracken [facility] Internal Medicine Work Phone: 09-16-2012 09:47-0500 BMI (Body Mass Index) 32.74 kg/m2 Mirella Mccracken [facility] Internal Medicine Work Phone: 09-16-2012 09:47-0500 Body Temperature 97 [degF] Mirella Mccracken [facility] Internal Medicine Work Phone: Comment on above: Method: Oral 09-16-2012 09:47-0500 Body weight 73.54 kg Mirella Mccracken [facility] Internal Medicine Work Phone: 09-16-2012 09:47-0500 BP Diastolic 76 mm[Hg] Mirella Mccracken [facility] Internal Medicine Work Phone: Comment on above: Patient Position: Sitting; Cuff Location : Left Arm; Cuff Size: Large 09-16-2012 09:47-0500 BP Systolic 128 mm[Hg] Mirella Mccracken [facility] Internal Medicine Work Phone: Comment on above: Patient Position: Sitting; Cuff Location : Left Arm; Cuff Size: Large 09-16-2012 09:47-0500 BSA (Body Surface Area) 1.69 m2 Mirella Mccracken [facility] Internal Medicine Work Phone: 09-16-2012 09:47-0500 Height 149.86 cm Mirella Mccracken [facility] Internal Medicine Work Phone: 09-16-2012 09:47-0500 Pulse (Heart Rate) 72 /min Mirella Mccracken [facility] Internal Medicine Work Phone: Comment on above: Pattern: Regular 09-16-2012 09:47-0500 Respiratory Rate 18 /min Mirella Mccracken [facility] Internal Medicine Work Phone: Comment on above: Pattern: Unlabored 09-16-2012 09:47-0500 Weight 73.54 kg Mirella Mccracken [facility] Internal Medicine Work Phone: 05-27-2012 09:32-0400 Body Temperature 96.9 [degF] Hung [facility] Work Phone: 03-11-2012 13:42-0400 BMI (Body Mass Index) 28.88 kg/m2 Mirella Mccracken [facility] Internal Medicine Work Phone: 03-11-2012 13:42-0400 Body Temperature 97.8 [degF] Mirella Mccracken [facility] Internal Medicine Work Phone: 03-11-2012 13:42-0400 Body weight 64.86 kg Mirella Mccracken [facility] Internal Medicine Work Phone: 03-11-2012 13:42-0400 BP Diastolic 70 mm[Hg] Mirella Mccracken [facility] Internal Medicine Work Phone: Comment on above: Patient Position: Sitting; Cuff Location : Left Arm; Cuff Size: Large 03-11-2012 13:42-0400 BP Systolic 124 mm[Hg] Mirella Mccracken [facility] Internal Medicine Work Phone: Comment on above: Patient Position: Sitting; Cuff Location : Left Arm; Cuff Size: Large 03-11-2012 13:42-0400 BSA (Body Surface Area) 1.6 m2 Mirella Mccracken [facility] Internal Medicine Work Phone: 03-11-2012 13:42-0400 Height 149.86 cm Mirella Mccracken [facility] Internal Medicine Work Phone: 03-11-2012 13:42-0400 Pulse (Heart Rate) 56 /min Mirella Mccracken [facility] Internal Medicine Work Phone: Comment on above: Pattern: Regular 03-11-2012 13:42-0400 Respiratory Rate 18 /min Mirella Mccracken [facility] Internal Medicine Work Phone: Comment on above: Pattern: Unlabored 03-11-2012 13:42-0400 Weight 64.86 kg Mirella Mccracken [facility] Internal Medicine Work Phone: 03-04-2012 12:12-0400 BMI (Body Mass Index) 28.96 kg/m2 Mirella Mccracken [facility] Internal Medicine Work Phone: 03-04-2012 12:12-0400 Body weight 65.03 kg Mirella Mccracken [facility] Internal Medicine Work Phone: 03-04-2012 12:12-0400 BP Diastolic 62 mm[Hg] Mirella Mccracken [facility] Internal Medicine Work Phone: Comment on above: Patient Position: Sitting; Cuff Location : Left Arm; Cuff Size: Large 03-04-2012 12:12-0400 BP Systolic 122 mm[Hg] [facility] Work [facility]: Comment on above: Patient Position: Sitting; Cuff Location : Left Arm; Cuff Size: Large 03-04-2012 12:12-0400 BSA (Body Surface Area) 1.6 m2 Mirella Mccracken [facility] Internal Medicine Work Phone: 03-04-2012 12:12-0400 Height 149.86 cm Mirella Mccracken [facility] Internal Medicine Work Phone: 03-04-2012 12:12-0400 Pulse (Heart Rate) 60 /min Mirella Mccracken [facility] Internal Medicine Work Phone: Comment on above: Pattern: Regular 03-04-2012 12:12-0400 Respiratory Rate 20 /min Mirella Mccracken [facility] Internal Medicine Work Phone: Comment on above: Pattern: Unlabored 03-04-2012 12:12-0400 Weight 65.03 kg Mirella Mccracken [facility] Internal Medicine Work Phone: 02-25-2012 13:29-0400 BMI (Body Mass Index) 28.96 kg/m2 Mirella Mccracken [facility] Internal Medicine Work Phone: 02-25-2012 13:29-0400 Body weight 65.03 kg Mirella Mccracken [facility] Internal Medicine Work Phone: 02-25-2012 13:29-0400 BP Diastolic 76 mm[Hg] Mirella Mccracken [facility] Internal Medicine Work Phone: Comment on above: Patient Position: Sitting; Cuff Location : Left Arm; Cuff Size: Standard 02-25-2012 13:29-0400 BP Systolic 120 mm[Hg] Mirella Mccracken [facility] Internal Medicine Work Phone: Comment on above: Patient Position: Sitting; Cuff Location : Left Arm; Cuff Size: Standard 02-25-2012 13:29-0400 BSA (Body Surface Area) 1.6 m2 Mirella Mccracken [facility] Internal Medicine Work Phone: 02-25-2012 13:29-0400 Height 149.86 cm Mirella Mccracken [facility] Internal Medicine Work Phone: 02-25-2012 13:29-0400 Pulse (Heart Rate) 68 /min Mirella Mccracken [facility] Internal Medicine Work Phone: Comment on above: Pattern: Regular 02-25-2012 13:29-0400 Respiratory Rate 20 /min Mirella Mccracken [facility] Internal Medicine Work Phone: Comment on above: Pattern: Unlabored 02-25-2012 13:29-0400 Weight 65.03 kg Mirella Mccracken [facility] Internal Medicine Work Phone: 01-30-2012 08:0400 BMI (Body Mass Index) 28.96 kg/m2 Mirella Mccracken [facility] Internal Medicine Work Phone: 01-30-2012 08:19-0400 Body weight 65.03 kg Mirella Mccracken [facility] Internal Medicine Work Phone: 01-30-2012 08:19-0400 BP Diastolic 70 mm[Hg] Mirella Mccracken [facility] Internal Medicine Work Phone: Comment on above: Patient Position: Sitting; Cuff Location : Left Arm; Cuff Size: Large 01-30-2012 08:19-0400 BP Systolic 120 mm[Hg] Mirella Mccracken [facility] Internal Medicine Work Phone: Comment on above: Patient Position: Sitting; Cuff Location : Left Arm; Cuff Size: Large 01-30-2012 08:190400 BSA (Body Surface Area) 1.6 m2 Mirella Mccracken [facility] Internal Medicine Work Phone: 01-30-2012 08:19-0400 Height 149.86 cm Mirella Mccracken [facility] Internal Medicine Work Phone: 01-30-2012 08:19-0400 Pulse (Heart Rate) 60 /min Mirella Mccracken [facility] Internal Medicine Work Phone: Comment on above: Pattern: Regular 01-30-2012 08:19-0400 Respiratory Rate 18 /min Mirella Mccracken [facility] Internal Medicine Work Phone: Comment on above: Pattern: Unlabored 01-30-2012 08:19-0400 Weight 65.03 kg Mirella Mccracken [facility] Internal Medicine Work Phone: 01-15-2012 12:06-0400 BMI (Body Mass Index) 28.96 kg/m2 Mirella Solano [facility] Internal Medicine Work Phone: Comment on above: vison with correction ou=20/50 os=20/50 od=20/50hearing wnl 01-15-2012 12:06-0400 Body Temperature 97 [degF] Mirella Mccracken [facility] Internal Medicine Work Phone: Comment on above: Method: Oral vison with correctio n ou=20/50 os=20/50 od=20/50hearing [facility] 01-15-2012 12:06-0400 Body weight 65.03 kg [facility] Internal Medicine Work Phone: Comment on above: vison with correction ou=20/50 os=20/50 od=20/50hearing [facility] 01-15-2012 12:06-0400 BP Diastolic 60 mm[Hg] [facility] Internal Medicine Work Phone: Comment on above: Patient Position: Sitting; Cuff Location : Left Arm; Cuff Size: Large vison with correctio n ou=20/50 os=20/50 od=20/50hearing [facility] 01-15-2012 12:06-0400 BP Systolic 118 mm[Hg] [facility] Internal Medicine Work Phone: Comment on above: Patient Position: Sitting; Cuff Location : Left Arm; Cuff Size: Large vison with correctio n ou=20/50 os=20/50 od=20/50hearing [facility] 01-15-2012 12:06-0400 BSA (Body Surface Area) 1.6 m2 [facility] Internal Medicine Work Phone: Comment on above: vison with correction ou=20/50 os=20/50 od=20/50hearing [facility] 01-15-2012 12:06-0400 Height 149.86 cm [facility] Internal Medicine Work Phone: Comment on above: vison with correction ou=20/50 os=20/50 od=20/50hearing [facility] 01-15-2012 12:06-0400 Pulse (Heart Rate) 68 /min [facility] Internal Medicine Work Phone: Comment on above: Pattern: Regular vison with correctio n ou=20/50 os=20/50 od=20/50hearing [facility] 01-15-2012 12:06-0400 Respiratory Rate 20 /min [facility] Internal Medicine Work Phone: Comment on above: Pattern: Unlabored vison with correctio n ou=20/50 os=20/50 od=20/50hearing [facility] 01-15-2012 12:06-0400 Weight 65.03 kg Mirella Mccracken [facility] Internal Medicine Work Phone: Comment on above: vison with correction ou=20/50 os=20/50 od=20/50hearing [facility] 12-31-2011 15:05-0400 BMI (Body Mass Index) 28.88 kg/m2 Mirella Mccracken [facility] Internal Medicine Work Phone: 12-31-2011 15:05-0400 Body weight 64.86 kg Mirella Mccracken [facility] Internal Medicine Work Phone: 12-31-2011 15:05-0400 BP Diastolic 78 mm[Hg] Mirella Mccracken [facility] Internal Medicine Work Phone: Comment on above: Patient Position: Sitting; Cuff Location : Left Arm; Cuff Size: Large 12-31-2011 15:05-0400 BP Systolic 122 mm[Hg] Mirella Mccracken [facility] Internal Medicine Work Phone: Comment on above: Patient Position: Sitting; Cuff Location : Left Arm; Cuff Size: Large 12-31-2011 15:05-0400 BSA (Body Surface Area) 1.6 m2 Mirella Mccracken [facility] Internal Medicine Work Phone: 12-31-2011 15:05-0400 Height 149.86 cm Mirella Mccracken [facility] Internal Medicine Work Phone: 12-31-2011 15:05-0400 Pulse (Heart Rate) 60 /min Mirella Mccracken [facility] Internal Medicine Work Phone: Comment on above: Pattern: Regular 12-31-2011 15:05-0400 Respiratory Rate 18 /min Mirella Mccracken [facility] Internal Medicine Work Phone: Comment on above: Pattern: Unlabored 12-31-2011 15:05-0400 Weight 64.86 kg Mirella Mccracken [facility] Internal Medicine Work Phone: 12-26-2011 14:17-0400 BP Diastolic 62 mm[Hg] Mirella Mccracken [facility] Internal Medicine Work Phone: Comment on above: Patient Position: Sitting; Cuff Location : Left Arm; Cuff Size: Standard 12-26-2011 14:17-0400 BP Systolic 122 mm[Hg] Mirella Mccracken [facility] Internal Medicine Work Phone: Comment on above: Patient Position: Sitting; Cuff Location : Left Arm; Cuff Size: Standard 12-26-2011 14:17-0400 Pulse (Heart Rate) 58 /min Mirella Mccracken [facility] Internal Medicine Work Phone: Comment on above: Pattern: Regular 12-26-2011 14:17-0400 Pulse Oximetry 98 % Mirella Mccracken [facility] Internal Medicine Work Phone: Comment on above: Room air 12-26-2011 13:59-0400 Pulse (Heart Rate) 48 /min Mirella Mccracken [facility] Internal Medicine Work Phone: Comment on above: Pattern: Regular 12-26-2011 13:59-0400 Pulse Oximetry 95 % Mirella Mccracken [facility] Internal Medicine Work Phone: Comment on above: Room air 12-26-2011 13:13-0400 BMI (Body Mass Index) 29.49 kg/m2 Mirella Mccracken [facility] Internal Medicine Work Phone: 12-26-2011 13:13-0400 Body Temperature 97.8 [degF] Mirella Mccracken [facility] Internal Medicine Work Phone: Comment on above: Method: Oral 12-26-2011 13:13-0400 Body weight 66.23 kg Mirella Mccracken [facility] Internal Medicine Work Phone: 12-26-2011 13:13-0400 BP Diastolic 68 mm[Hg] Mirella Mccracken [facility] Internal Medicine Work Phone: Comment on above: Patient Position: Sitting; Cuff Location : Left Arm; Cuff Size: Standard 12-26-2011 13:13-0400 BP Systolic 114 mm[Hg] Mirella Mccracken [facility] Internal Medicine Work Phone: Comment on above: Patient Position: Sitting; Cuff Location : Left Arm; Cuff Size: Standard 12-26-2011 13:13-0400 BSA (Body Surface Area) 1.61 m2 Mirella Mccracken [facility] Internal Medicine Work Phone: 12-26-2011 13:130400 Height 149.86 cm Mirella Mccracken [facility] Internal Medicine Work Phone: 12-26-2011 13:13-0400 Pulse (Heart Rate) 54 /min Mirella Mccracken [facility] Internal Medicine Work Phone: Comment on above: Pattern: Regular 12-26-2011 13:13-0400 Pulse Oximetry 98 % Mirella Mccracken [facility] Internal Medicine Work Phone: Comment on above: Room air 12-26-2011 13:13-0400 Respiratory Rate 20 /min Mirella Mccracken [facility] Internal Medicine Work Phone: Comment on above: Pattern: Unlabored 12-26-2011 13:13-0400 Weight 66.23 kg Mirella Mccracken [facility] Internal Medicine Work Phone: 12-24-2011 14:07-0400 BMI (Body Mass Index) 29.5 kg/m2 Mirella Mccracken [facility] Internal Medicine Work Phone: 12-24-2011 14:07-0400 Body weight 66.25 kg Mirella Mccracken [facility] Internal Medicine Work Phone: 12-24-2011 14:07-0400 BP Diastolic 60 mm[Hg] Mirella Mccracken [facility] Internal Medicine Work Phone: Comment on above: Patient Position: Sitting; Cuff Location : Left Arm; Cuff Size: Large 12-24-2011 14:07-0400 BP Systolic 124 mm[Hg] Mirella Mccracken [facility] Internal Medicine Work Phone: Comment on above: Patient Position: Sitting; Cuff Location : Left Arm; Cuff Size: Large 12-24-2011 14:07-0400 BSA (Body Surface Area) 1.61 m2 Mirella Mccracken [facility] Internal Medicine Work Phone: 12-24-2011 14:07-0400 Height 149.86 cm Mirella Mccracken [facility] Internal Medicine Work Phone: 12-24-2011 14:07-0400 Pulse (Heart Rate) 60 /min Mirella Mccracken [facility] Internal Medicine Work Phone: Comment on above: Pattern: Regular 12-24-2011 14:07-0400 Respiratory Rate 18 /min Mirella Mccracken [facility] Internal Medicine Work Phone: Comment on above: Pattern: Unlabored 12-24-2011 14:07-0400 Weight 66.25 kg Mirella Mccracken [facility] Internal Medicine Work Phone: 12-15-2011 09:30-0400 BMI (Body Mass Index) 29.31 kg/m2 Mirella Mccracken [facility] Internal Medicine Work Phone: 12-15-2011 09:30-0400 Body Temperature 97.9 [degF] Mirella Mccracken [facility] Internal Medicine Work Phone: Comment on above: Method: Oral 12-15-2011 09:30-0400 Body weight 65.83 kg Mirella Mccracken [facility] Internal Medicine Work Phone: 12-15-2011 09:30-0400 BP Diastolic 60 mm[Hg] Mirella Mccracken [facility] Internal Medicine Work Phone: Comment on above: Patient Position: Sitting; Cuff Location : Left Arm; Cuff Size: Large 12-15-2011 09:30-0400 BP Systolic 104 mm[Hg] Mirella Mccracken [facility] Internal Medicine Work Phone: Comment on above: Patient Position: Sitting; Cuff Location : Left Arm; Cuff Size: Large 12-15-2011 09:30-0400 BSA (Body Surface Area) 1.61 m2 Mirella Mccracken [facility] Internal Medicine Work Phone: 12-15-2011 09:30-0400 Height 149.86 cm Mirella Mccracken [facility] Internal Medicine Work Phone: 12-15-2011 09:30-0400 Pulse (Heart Rate) 60 /min Mirella Mccracken [facility] Internal Medicine Work Phone: Comment on above: Pattern: Regular 12-15-2011 09:30-0400 Respiratory Rate 18 /min Mirella Mccracken [facility] Internal Medicine Work Phone: Comment on above: Pattern: Unlabored 12-15-2011 09:30-0400 Weight 65.83 kg Mirella Mccracken [facility] Internal Medicine Work Phone: 11-26-2011 11:36-0400 BMI (Body Mass Index) 29.69 kg/m2 Mirella Mccracken [facility] Internal Medicine Work Phone: 11-26-2011 11:36-0400 Body Temperature 95.6 [degF] Mirella Mccracken [facility] Internal Medicine Work Phone: Comment on above: Method: Oral 11-26-2011 11:36-0400 Body weight 66.68 kg Mirella Mccracken [facility] Internal Medicine Work Phone: 11-26-2011 11:36-0400 BP Diastolic 62 mm[Hg] Mirella Mccracken [facility] Internal Medicine Work Phone: Comment on above: Patient Position: Sitting; Cuff Location : Left Arm; Cuff Size: Large 11-26-2011 11:36-0400 BP Systolic 118 mm[Hg] Mirella Mccracken [facility] Internal Medicine Work Phone: Comment on above: Patient Position: Sitting; Cuff Location : Left Arm; Cuff Size: Large 11-26-2011 11:36-0400 BSA (Body Surface Area) 1.62 m2 Mirella Mccracken [facility] Internal Medicine Work Phone: 11-26-2011 11:36-0400 Height 149.86 cm Mirella Mccracken [facility] Internal Medicine Work Phone: 11-26-2011 11:36-0400 Pulse (Heart Rate) 64 /min Mirella Mccracken [facility] Internal Medicine Work Phone: Comment on above: Pattern: Regular 11-26-2011 11:36-0400 Respiratory Rate 20 /min Mirella Mccracken [facility] Internal Medicine Work Phone: Comment on above: Pattern: Unlabored 11-26-2011 11:36-0400 Weight 66.68 kg Mirella Mccracken [facility] Internal Medicine Work Phone: 11-12-2011 12:55-0500 BMI (Body Mass Index) 30.51 kg/m2 Mirella Solano [facility] Internal Medicine Work Phone: 11-12-2011 12:55-0500 Body weight 68.52 kg Mirella Mccracken [facility] Internal Medicine Work Phone: 11-12-2011 12:55-0500 BP Diastolic 60 mm[Hg] Mirella Mccracken [facility] Internal Medicine Work Phone: Comment on above: Patient Position: Sitting; Cuff Location : Left Arm; Cuff Size: Large 11-12-2011 12:55-0500 BP Systolic 112 mm[Hg] Mirella Mccracken [facility] Internal Medicine Work Phone: Comment on above: Patient Position: Sitting; Cuff Location : Left Arm; Cuff Size: Large 11-12-2011 12:55-0500 BSA (Body Surface Area) 1.64 m2 Mirella Mccracken [facility] Internal Medicine Work Phone: 11-12-2011 12:55-0500 Height 149.86 cm Mirella Mccracken [facility] Internal Medicine Work Phone: 11-12-2011 12:55-0500 Pulse (Heart Rate) 68 /min Mirella Mccracken [facility] Internal Medicine Work Phone: Comment on above: Pattern: Regular 11-12-2011 12:55-0500 Respiratory Rate 20 /min Mirella Mccracken [facility] Internal Medicine Work Phone: Comment on above: Pattern: Unlabored 11-12-2011 12:55-0500 Weight 68.52 kg Mirella Mccracken [facility] Internal Medicine Work Phone: 11-06-2011 12:18-0500 BMI (Body Mass Index) 30.09 kg/m2 Mirella Solano [facility] Internal Medicine Work Phone: 11-06-2011 12:18-0500 Body Temperature 98.1 [degF] Mirella Mccracken [facility] Internal Medicine Work Phone: Comment on above: Method: Oral 11-06-2011 12:18-0500 Body weight 67.59 kg Mirella Mccracken [facility] Internal Medicine Work Phone: 11-06-2011 12:18-0500 BP [...] 12:18-0500 Height 149.86 cm Mirella Mccracken [facility] Internal Medicine Work Phone: 11-06-2011 12:18-0500 Pulse (Heart Rate) 68 /min Mirella Mccracken [facility] Internal Medicine Work Phone: Comment on above: Pattern: Regular 11-06-2011 12:18-0500 Respiratory Rate 20 /min Mirella Mccracken [facility] Internal Medicine Work Phone: Comment on above: Pattern: Unlabored 11-06-2011 12:18-0500 Weight 67.59 kg Mirella Mccracken [facility] Internal Medicine Work Phone: 10-21-2011 13:27-0500 Body Temperature 97.9 [degF] Mirella Mccracken [facility] Internal Medicine Work Phone: 10-21-2011 13:27-0500 Body weight 67.54 kg Mirella Mccracken [facility] Internal Medicine Work Phone: 10-21-2011 13:27-0500 BP [...] (Heart Rate) 99 /min Mirella Mccracken [facility] Internal Medicine Work Phone: Comment on above: Pattern: Regular 10-21-2011 13:27-0500 Pulse Oximetry 92 % Mirella Mccracken [facility] Internal Medicine Work Phone: Comment on above: Room air 10-21-2011 13:27-0500 Respiratory Rate 17 /min Mirella Mccracken [facility] Internal Medicine Work Phone: Comment on above: Pattern: Unlabored 10-21-2011 13:27-0500 Weight 67.54 kg Mirella Mccracken [facility] Internal Medicine Work Phone: 06-05-2011 09:34-0400 BMI (Body Mass Index) 30.14 kg/m2 Mirella Mccracken [facility] Internal Medicine Work Phone: 06-05-2011 09:34-0400 Body Temperature 98.5 [degF] Mirella Mccracken [facility] Internal Medicine Work Phone: Comment on above: Method: Oral 06-05-2011 09:34-0400 Body weight 67.7 kg Mirella Mccracken [facility] Internal Medicine Work Phone: 06-05-2011 09:34-0400 BP Diastolic 78 mm[Hg] Mirella Mccracken [facility] Internal Medicine Work Phone: Comment on above: Patient Position: Sitting; Cuff Location : Left Arm; Cuff Size: Large 06-05-2011 09:34-0400 BP Systolic 142 mm[Hg] Mirella Mccracken [facility] Internal Medicine Work Phone: Comment on above: Patient Position: Sitting; Cuff Location : Left Arm; Cuff Size: Large 06-05-2011 09:34-0400 BSA (Body Surface Area) 1.63 m2 Mirella Mccracken [facility] Internal Medicine Work Phone: 06-05-2011 09:34-0400 Height 149.86 cm Mirella Mccracken [facility] Internal Medicine Work Phone: 06-05-2011 09:34-0400 Pulse (Heart Rate) 76 /min Mirella Mccracken [facility] Internal Medicine Work Phone: Comment on above: Pattern: Regular 06-05-2011 09:34-0400 Respiratory Rate 20 /min Mirella Mccracken [facility] Internal Medicine Work Phone: Comment on above: Pattern: Unlabored 06-05-2011 09:34-0400 Weight 67.7 kg Mirella Mccracken [facility] Internal Medicine Work Phone: 05-08-2011 08:10-0400 BMI (Body Mass Index) 28.19 kg/m2 Mirella Mccracken [facility] Internal Medicine Work Phone: 05-08-2011 08:10-0400 Body Temperature 98.7 [degF] Mirella Mccracken [facility] Internal Medicine Work Phone: Comment on above: Method: Oral 05-08-2011 08:10-0400 Body weight 63.31 kg Mirella Mccracken [facility] Internal Medicine Work Phone: 05-08-2011 08:10-0400 BP Diastolic 78 mm[Hg] Mirella Mccracken [facility] Internal Medicine Work Phone: Comment on above: Patient Position: Sitting; Cuff Location : Left Arm; Cuff Size: Standard 05-08-2011 08:10-0400 BP Systolic 142 mm[Hg] Mirella Mccracken [facility] Internal Medicine Work Phone: Comment on above: Patient Position: Sitting; Cuff Location : Left Arm; Cuff Size: Standard 05-08-2011 08:10-0400 BSA (Body Surface Area) 1.58 m2 Mirella Mccracken [facility] Internal Medicine Work Phone: 05-08-2011 08:10-0400 Height 149.86 cm Mirella Mccracken [facility] Internal Medicine Work Phone: 05-08-2011 08:10-0400 Pulse (Heart Rate) 84 /min Mirella Mccracken [facility] Internal Medicine Work Phone: Comment on above: Pattern: Regular 05-08-2011 08:10-0400 Respiratory Rate 17 /min Mierlla Mccracken [facility] Internal Medicine Work Phone: 05-08-2011 08:10-0400 Weight 63.31 kg Mirella Mccracken [facility] Internal Medicine Work Phone: 05-07-2011 08:42-0400 BMI (Body Mass Index) 28.19 kg/m2 [facility] Work Phone: 05-07-2011 08:42-0400 Body Temperature 98 [degF] Mirella Mccracken [facility] Internal Medicine Work Phone: Comment on above: Method: Oral 05-07-2011 08:42-0400 Body weight 63.31 kg Mirella Mccracken [facility] Internal Medicine Work Phone: 05-07-2011 08:42-0400 BP Diastolic 72 mm[Hg] Mirella Mccracken [facility] Internal Medicine Work Phone: Comment on above: Patient Position: Sitting; Cuff Location : Left Arm; Cuff Size: Standard 05-07-2011 08:42-0400 BP Systolic 132 mm[Hg] Mirella Mccracken [facility] Internal Medicine Work Phone: Comment on above: Patient Position: Sitting; Cuff Location : Left Arm; Cuff Size: Standard 05-07-2011 08:42-0400 BSA (Body Surface Area) 1.58 m2 Mirella Mccracken [facility] Internal Medicine Work Phone: 05-07-2011 08:42-0400 Height 149.86 cm Mirella Mccracken [facility] Internal Medicine Work Phone: 05-07-2011 08:42-0400 Pulse (Heart Rate) 82 /min Mirella Mccracken [facility] Internal Medicine Work Phone: Comment on above: Pattern: Regular 05-07-2011 08:42-0400 Respiratory Rate 18 /min Mirella Mccracken [facility] Internal Medicine Work Phone: Comment on above: Pattern: Unlabored 05-07-2011 08:42-0400 Weight 63.31 kg Mirella Mccracken [facility] Internal Medicine Work Phone: 05-06-2011 16:25-0400 BP Diastolic 82 mm[Hg] Mirella Mccracken [facility] Internal Medicine Work Phone: Comment on above: Patient Position: Supine; Cuff Location: Right Arm; Cuff Size: Standard 05-06-2011 16:25-0400 BP Systolic 146 mm[Hg] Mirella Mccracken [facility] Internal Medicine Work Phone: Comment on above: Patient Position: Supine; Cuff Location: Right Arm; Cuff Size: Standard 05-06-2011 16:25-0400 Pulse (Heart Rate) 76 /min Mirella Mccracken [facility] Internal Medicine Work Phone: Comment on above: Pattern: Regular 11-06-2010 12:10-0500 BMI (Body Mass Index) 28.19 kg/m2 Mirella Mccracken [facility] Internal Medicine Work Phone: 11-06-2010 12:10-0500 Body Temperature 97.3 [degF] Mirella Mccracken [facility] Internal Medicine Work Phone: Comment on above: Method: Oral 11-06-2010 12:10-0500 Body weight 63.31 kg Mirella Mccracken [facility] Internal Medicine Work Phone: 11-06-2010 12:10-0500 BP Diastolic 82 mm[Hg] [facility] Work [facility]: Comment on above: Patient Position: Sitting; Cuff Location : Left Arm; Cuff Size: Standard 11-06-2010 12:10-0500 BP Systolic 144 mm[Hg] Mirella Mccracken [facility] Internal Medicine Work Phone: Comment on above: Patient Position: Sitting; Cuff Location : Left Arm; Cuff Size: Standard 11-06-2010 12:10-0500 BSA (Body Surface Area) 1.58 m2 Mirella Mccracken [facility] Internal Medicine Work Phone: 11-06-2010 12:10-0500 Height 149.86 cm Mirella Mccracken [facility] Internal Medicine Work Phone: 11-06-2010 12:10-0500 Pulse (Heart Rate) 76 /min Mirella Mccracken [facility] Internal Medicine Work Phone: Comment on above: Pattern: Regular 11-06-2010 12:10-0500 Respiratory Rate 18 /min Mirella Mccracken [facility] Internal Medicine Work Phone: Comment on above: Pattern: Unlabored 11-06-2010 12:10-0500 Weight 63.31 kg Mirella Mccracken [facility] Internal Medicine Work Phone: 11-04-2010 09:00-0500 BMI (Body Mass Index) 28.19 kg/m2 Mirella Mccracken [facility] Internal Medicine Work Phone: 11-04-2010 09:00-0500 Body weight 63.31 kg Mirella Mccracken [facility] Internal Medicine Work Phone: 11-04-2010 09:00-0500 BP Diastolic 72 mm[Hg] Mirella Mccracken [facility] Internal Medicine Work Phone: Comment on above: Patient Position: Sitting; Cuff Location : Left Arm; Cuff Size: Standard 11-04-2010 09:00-0500 BP Systolic 122 mm[Hg] Mirella Mccracken [facility] Internal Medicine Work Phone: Comment on above: Patient Position: Sitting; Cuff Location : Left Arm; Cuff Size: Standard 11-04-2010 09:00-0500 BSA (Body Surface Area) 1.58 m2 Mirella Mccracken [facility] Internal Medicine Work Phone: 11-04-2010 09:00-0500 Height 149.86 cm Mirella Mccracken [facility] Internal Medicine Work Phone: 11-04-2010 09:00-0500 Pulse (Heart Rate) 62 /min Mirella Mccracken [facility] Internal Medicine Work Phone: Comment on above: Pattern: Regular 11-04-2010 09:00-0500 Respiratory Rate 16 /min Mirella Mccracken [facility] Internal Medicine Work Phone: Comment on above: Pattern: Unlabored 11-04-2010 09:00-0500 Weight 63.31 kg Mirella Mccracken [facility] Internal Medicine Work Phone: 10-14-2010 09:31-0500 BMI (Body Mass Index) 28.19 kg/m2 [facility] Work Phone: 10-14-2010 09:31-0500 Body weight 63.31 kg Mirella Mccracken [facility] Internal Medicine Work Phone: 10-14-2010 09:31-0500 BP Diastolic 70 mm[Hg] Mirella Mccracken [facility] Internal Medicine Work Phone: Comment on above: Patient Position: Sitting; Cuff Location : Left Arm; Cuff Size: Large 10-14-2010 09:31-0500 BP Systolic 132 mm[Hg] Mirella Mccracken [facility] Internal Medicine Work Phone: Comment on above: Patient Position: Sitting; Cuff Location : Left Arm; Cuff Size: Large 10-14-2010 09:31-0500 BSA (Body Surface Area) 1.58 m2 Mirella Mccracken [facility] Internal Medicine Work Phone: 10-14-2010 09:31-0500 Height 149.86 cm Mirella Mccracken [facility] Internal Medicine Work Phone: 10-14-2010 09:31-0500 Pulse (Heart Rate) 72 /min Mirella Mccracken [facility] Internal Medicine Work Phone: Comment on above: Pattern: Regular 10-14-2010 09:31-0500 Respiratory Rate 20 /min Mirella Mccracken [facility] Internal Medicine Work Phone: Comment on above: Pattern: Unlabored 10-14-2010 09:31-0500 Weight 63.31 kg Mirella [facility]ccracken [facility] Medicine Work Phone: 07-17-2010 08:52-0400 BMI (Body Mass Index) 29.73 kg/m2 Mirella [facility] Internal Medicine Work Phone: 07-17-2010 08:52-0400 Body weight 66.76 kg Mirella Mccracken [facility] Internal Medicine Work Phone: 07-17-2010 08:52-0400 BP Diastolic 78 mm[Hg] Mirella Mccracken [facility] Internal Medicine Work Phone: Comment on above: Patient Position: Sitting; Cuff Location : Left Arm; Cuff Size: Large 07-17-2010 08:52-0400 BP Systolic 138 mm[Hg] [facility] Work [facility]: Comment on above: Patient Position: Sitting; Cuff Location : Left Arm; Cuff Size: Large 07-17-2010 08:52-0400 BSA (Body Surface Area) 1.62 m2 Mirella Mccracken [facility] Internal Medicine Work Phone: 07-17-2010 08:52-0400 Height 149.86 cm Mirella Mccracken [facility] Internal Medicine Work Phone: 07-17-2010 08:52-0400 Pulse (Heart Rate) 60 /min Mirella Mccracken [facility] Internal Medicine Work Phone: Comment on above: Pattern: Regular 07-17-2010 08:52-0400 Respiratory Rate 20 /min Mirella Mccracken [facility] Internal Medicine Work Phone: Comment on above: Pattern: Unlabored 07-17-2010 08:52-0400 Weight 66.76 kg Mirella Mccracken [facility] Internal Medicine Work Phone: 06-17-2010 10:04-0400 BMI (Body Mass Index) 29.6 kg/m2 Mirella [facility] Internal Medicine Work Phone: 06-17-2010 10:04-0400 Body weight 66.48 kg Mirella Mccracken [facility] Internal Medicine Work Phone: 06-17-2010 10:04-0400 BP Diastolic 70 mm[Hg] [facility] Work Phone: Comment on above: Patient Position: Sitting; Cuff Location : Left Arm; Cuff Size: Large 06-17-2010 10:04-0400 BP Systolic 122 mm[Hg] Mirella Mccracken [facility] Internal Medicine Work Phone: Comment on above: Patient Position: Sitting; Cuff Location : Left Arm; Cuff Size: Large 06-17-2010 10:04-0400 BSA (Body Surface Area) 1.62 m2 Mirella Mccracken [facility] Internal Medicine Work Phone: 06-17-2010 10:04-0400 Height 149.86 cm [facility] Work Phone: 06-17-2010 10:04-0400 Pulse (Heart Rate) 68 /min Mirella Mccracken [facility] Internal Medicine Work Phone: Comment on above: Pattern: Regular 06-17-2010 10:04-0400 Respiratory Rate 20 /min Mirella Mccracken [facility] Internal Medicine Work Phone: Comment on above: Pattern: Unlabored 06-17-2010 10:04-0400 Weight 66.48 kg Mirella Mccracken [facility] Internal Medicine Work Phone: 01-25-2010 13:25-0400 Body weight 66.91 kg Mirella Mccracken [facility] Internal Medicine Work Phone: 01-25-2010 13:25-0400 BP Diastolic 76 mm[Hg] Mirella Mccracken [facility] Internal Medicine Work Phone: Comment on above: Patient Position: Sitting; Cuff Location : Left Arm; Cuff Size: Standard 01-25-2010 13:25-0400 BP Systolic 132 mm[Hg] Mirella Mccracken [facility] Internal Medicine Work Phone: Comment on above: Patient Position: Sitting; Cuff Location : Left Arm; Cuff Size: Standard 01-25-2010 13:25-0400 Pulse (Heart Rate) 68 /min Mirella Mccracken [facility] Internal Medicine Work Phone: Comment on above: Pattern: Regular 01-25-2010 13:25-0400 Respiratory Rate 18 /min Mirella Mccracken [facility] Internal Medicine Work Phone: Comment on above: Pattern: Unlabored 01-25-2010 13:25-0400 Weight 66.91 kg Mirella Mccracken [facility] Internal Medicine Work Phone: 12-13-2009 11:12-0400 BMI (Body Mass Index) 29.32 kg/m2 Mirella [facility] Internal Medicine Work Phone: 12-13-2009 11:12-0400 Body weight 65.86 kg Mirella Mccracken [facility] Internal Medicine Work Phone: 12-13-2009 11:12-0400 BP Diastolic 78 mm[Hg] [facility] Work Phone: Comment on above: Patient Position: Sitting; Cuff Location : Left Arm; Cuff Size: Large 12-13-2009 11:12-0400 BP Systolic 118 mm[Hg] Mirella Mccracken [facility] Internal Medicine Work Phone: Comment on above: Patient Position: Sitting; Cuff Location : Left Arm; Cuff Size: Large 12-13-2009 11:12-0400 BSA (Body Surface Area) 1.61 m2 Mirella Mccracken [facility] Internal Medicine Work Phone: 12-13-2009 11:12-0400 Height 149.86 cm Mirella Mccracken [facility] Internal Medicine Work Phone: 12-13-2009 11:12-0400 Pulse (Heart Rate) 64 /min Mirella Mccracken [facility] Internal Medicine Work Phone: Comment on above: Pattern: Regular 12-13-2009 11:12-0400 Respiratory Rate 20 /min Mirella Mccracken [facility] Internal Medicine Work Phone: Comment on above: Pattern: Unlabored 12-13-2009 11:12-0400 Weight 65.86 kg Mirella Mccracken [facility] Internal Medicine Work Phone: 10-03-2009 11:50-0500 BMI (Body Mass Index) 27.37 kg/m2 Mirella [facility] Internal Medicine Work Phone: 10-03-2009 11:50-0500 Body weight 61.46 kg Mirella Mccracken [facility] Internal Medicine Work Phone: 10-03-2009 11:50-0500 BP Diastolic 78 mm[Hg] Mirella Mccracken [facility] Internal Medicine Work Phone: Comment on above: Patient Position: Sitting; Cuff Location : Left Arm; Cuff Size: Large 10-03-2009 11:50-0500 BP Systolic 120 mm[Hg] [facility] Work Phone: Comment on above: Patient Position: Sitting; Cuff Location : Left Arm; Cuff Size: Large 10-03-2009 11:50-0500 BSA (Body Surface Area) 1.56 m2 [facility] Work Phone: 10-03-2009 11:50-0500 Height 149.86 cm Mirella Mccracken [facility] Internal Medicine Work Phone: 10-03-2009 11:50-0500 Pulse (Heart Rate) 64 /min Mirella Mccracken [facility] Internal Medicine Work Phone: Comment on above: Pattern: Regular 10-03-2009 11:50-0500 Respiratory Rate 20 /min Mirella Mccracken [facility] Internal Medicine Work Phone: Comment on above: Pattern: Unlabored 10-03-2009 11:50-0500 Weight 61.46 kg Mirella Mccracken [facility] Internal Medicine Work Phone: 01-17-2009 07:54-0400 BMI (Body Mass Index) 27.37 kg/m2 Mirella [facility] Internal Medicine Work Phone: 01-17-2009 07:54-0400 Body weight 61.46 kg Mirella Mccracken [facility] Internal Medicine Work Phone: 01-17-2009 07:54-0400 BP Diastolic 60 mm[Hg] Mirella Mccracken [facility] Internal Medicine Work Phone: Comment on above: Patient Position: Sitting; Cuff Location : Left Arm; Cuff Size: Large 01-17-2009 07:54-0400 BP Systolic 112 mm[Hg] Mirella Mccracken [facility] Internal Medicine Work Phone: Comment on above: Patient Position: Sitting; Cuff Location : Left Arm; Cuff Size: Large 01-17-2009 07:54-0400 BSA (Body Surface Area) 1.56 m2 Mirella Mccracken [facility] Internal Medicine Work Phone: 01-17-2009 07:54-0400 Head Circumference 0 cm Mirella Mccracken [facility] Internal Medicine Work Phone: 01-17-2009 07:54-0400 Height 149.86 cm Mirella Mccracken [facility] Internal Medicine Work Phone: 01-17-2009 07:54-0400 Pulse (Heart Rate) 64 /min Mirella Mccracken [facility] Internal Medicine Work Phone: Comment on above: Pattern: Regular 01-17-2009 07:54-0400 Respiratory Rate 20 /min Mirella Mccracken [facility] Internal Medicine Work Phone: Comment on above: Pattern: Unlabored 01-17-2009 07:54-0400 Weight 61.46 kg Mirella Mccracken [facility] Internal Medicine Work Phone: 01-12-2009 07:52-0400 BMI (Body Mass Index) 27.37 kg/m2 Mirella [facility] Internal Medicine Work Phone: 01-12-2009 07:52-0400 Body weight 61.46 kg Mirella Mccracken [facility] Internal Medicine Work Phone: 01-12-2009 07:52-0400 BP Diastolic 78 mm[Hg] Mirella Mccracken [facility] Internal Medicine Work Phone: Comment on above: Patient Position: Sitting; Cuff Location : Left Arm; Cuff Size: Large 01-12-2009 07:52-0400 BP Systolic 122 mm[Hg] Mirella Mccracken [facility] Internal Medicine Work Phone: Comment on above: Patient Position: Sitting; Cuff Location : Left Arm; Cuff Size: Large 01-12-2009 07:52-0400 BSA (Body Surface Area) 1.56 m2 Mirella Mccracken [facility] Internal Medicine Work Phone: 01-12-2009 07:52-0400 Head Circumference 0 cm Mirella Mccracken [facility] Internal Medicine Work Phone: 01-12-2009 07:52-0400 Height 149.86 cm Mirella Mccracken [facility] Internal Medicine Work Phone: 01-12-2009 07:52-0400 Pulse (Heart Rate) 72 /min Mirella Mccracken [facility] Internal Medicine Work Phone: Comment on above: Pattern: Regular 01-12-2009 07:52-0400 Respiratory Rate 18 /min Mirella Mccracken [facility] Internal Medicine Work Phone: Comment on above: Pattern: Unlabored 01-12-2009 07:52-0400 Weight 61.46 kg Mirella Mccracken [facility] Internal Medicine Work Phone: 01-02-2009 09:31-0400 BMI (Body Mass Index) 27.37 kg/m2 Mirella [facility] Internal Medicine Work Phone: 01-02-2009 09:31-0400 Body weight 61.46 kg Mirella Mccracken [facility] Internal Medicine Work Phone: 01-02-2009 09:31-0400 BP Diastolic 78 mm[Hg] Mirella Mccracken [facility] Internal Medicine Work Phone: Comment on above: Patient Position: Sitting; Cuff Location : Left Arm; Cuff Size: Large 01-02-2009 09:31-0400 BP Systolic 138 mm[Hg] Mirella Mccracken [facility] Internal Medicine Work Phone: Comment on above: Patient Position: Sitting; Cuff Location : Left Arm; Cuff Size: Large 01-02-2009 09:31-0400 BSA (Body Surface Area) 1.56 m2 Mirella Mccracken [facility] Internal Medicine Work Phone: 01-02-2009 09:31-0400 Head Circumference 0 cm Mirella Mccracken [facility] Internal Medicine Work Phone: 01-02-2009 09:31-0400 Height 149.86 cm Mirella Mccracken [facility] Internal Medicine Work Phone: 01-02-2009 09:31-0400 Pulse (Heart Rate) 72 /min Mirella Mccracken [facility] Internal Medicine Work Phone: Comment on above: Pattern: Regular 01-02-2009 09:31-0400 Respiratory Rate 20 /min Mirella Mccracken [facility] Internal Medicine Work Phone: Comment on above: Pattern: Unlabored 01-02-2009 09:31-0400 Weight 61.46 kg Mirella Mccracken [facility] Internal Medicine Work Phone: 12-07-2008 09:40-0400 BMI (Body Mass Index) 27.28 kg/m2 Mirella Sol[facility] Internal Medicine Work Phone: Comment on above: vision with correction OD= 20/50 OS=20/5 0 OU=20/50 12-07-2008 09:40-0400 Body weight 61.26 kg [facility] Work Phone: Comment on above: vision with correction OD= 20/50 OS=20/5 0 OU=20/50 12-07-2008 09:40-0400 BP Diastolic 78 mm[Hg] [facility] Work Phone: Comment on above: Patient Position: Sitting; Cuff Location : Left Arm; Cuff Size: Large vision with correcti on OD= 20/50 OS=20/50 OU=20/50 12-07-2008 09:40-0400 BP Systolic 122 mm[Hg] [facility] Work Phone: Comment on above: Patient [...] 0 OU=20/50 12-07-2008 09:40-0400 Height 149.86 cm [facility] Work Phone: Comment on above: vision with correction OD= 20/50 OS=20/5 0 OU=20/50 12-07-2008 09:40-0400 Pulse (Heart Rate) 72 /min [facility] Work Phone: Comment on above: Pattern: Regular vision with correcti on OD= 20/50 OS=20/50 OU=20/50 12-07-2008 09:40-0400 Respiratory Rate 20 /min [facility] Work Phone: Comment on above: Pattern: Unlabored vision with correcti on OD= 20/50 OS=20/50 OU=20/50 12-07-2008 09:40-0400 Weight 61.26 kg [facility] Work Phone: Comment on above: vision with correction OD= 20/50 OS=20/5 0 OU=20/50 10-04-2008 09:20-0500 BMI (Body Mass Index) 26.31 kg/m2 Mirella [facility] Internal Medicine Work Phone: 10-04-2008 09:20-0500 Body weight 59.08 kg Mirella Mccracken [facility] Internal Medicine Work Phone: 10-04-2008 09:20-0500 BP Diastolic 76 mm[Hg] Mirella [facility] Internal Medicine Work Phone: Comment on above: Patient Position: Sitting; Cuff Location : Left Arm; Cuff Size: Large 10-04-2008 09:20-0500 BP Systolic 124 mm[Hg] Mirella [facility] Internal Medicine Work Phone: Comment on above: Patient Position: Sitting; Cuff Location : Left Arm; Cuff Size: Large 10-04-2008 09:20-0500 BSA (Body Surface Area) 1.54 m2 [facility] Work Phone: 10-04-2008 09:20-0500 Head Circumference 0 cm Mirella [facility] Internal Medicine Work Phone: 10-04-2008 09:20-0500 Height 149.86 cm Mirella [facility] Internal Medicine Work Phone: 10-04-2008 09:20-0500 Pulse (Heart Rate) 72 /min Mirella [facility] Internal Medicine Work Phone: Comment on above: Pattern: Regular 10-04-2008 09:20-0500 Respiratory Rate 20 /min [facility] Work Phone: Comment on above: Pattern: Unlabored 10-04-2008 09:20-0500 Weight 59.08 kg [facility]lla [facility] Work Phone: 09-21-2008 14:19-0500 BMI (Body Mass Index) 26.9 kg/m2 Mirella Sol[facility] Internal Medicine Work Phone: 09-21-2008 14:19-0500 Body weight 60.41 kg Mirella Mccracken [facility] Internal Medicine Work Phone: 09-21-2008 14:19-0500 BP Diastolic 80 mm[Hg] Mirella Mccracken [facility] Internal Medicine Work Phone: Comment on above: Patient Position: Sitting; Cuff Location : Left Arm; Cuff Size: Standard 09-21-2008 14:19-0500 BP Systolic 142 mm[Hg] Mirella Mccracken [facility] Internal Medicine Work Phone: Comment on above: Patient Position: Sitting; Cuff Location : Left Arm; Cuff Size: Standard 09-21-2008 14:19-0500 BSA (Body Surface Area) 1.55 m2 Mirella Mccracken [facility] Internal Medicine Work Phone: 09-21-2008 14:19-0500 Head Circumference 0 cm Mirella Mccracken [facility] Internal Medicine Work Phone: 09-21-2008 14:19-0500 Height 149.86 cm Mirella Mccracken [facility] Internal Medicine Work Phone: 09-21-2008 14:19-0500 Pulse (Heart Rate) 64 /min Mirella Mccracken [facility] Internal Medicine Work Phone: Comment on above: Pattern: Regular 09-21-2008 14:19-0500 Respiratory Rate 20 /min Mirella Mccracken [facility] Internal Medicine Work Phone: Comment on above: Pattern: Unlabored 09-21-2008 14:19-0500 Weight 60.41 kg Mirella Mccracken [facility] Internal Medicine Work Phone: 08-24-2008 13:56-0500 BMI (Body Mass Index) 26.9 kg/m2 Mirella Sol[facility] Internal Medicine Work Phone: 08-24-2008 13:56-0500 Body weight 60.41 kg Mirella Mccracken [facility] Internal Medicine Work Phone: 08-24-2008 13:56-0500 BP Diastolic 88 mm[Hg] Mirella Mccracken [facility] Internal Medicine Work Phone: Comment on above: Patient Position: Sitting; Cuff Location : Left Arm; Cuff Size: Standard 08-24-2008 13:56-0500 BP Systolic 142 mm[Hg] Mirella Mccracken [facility] Internal Medicine Work Phone: Comment on above: Patient Position: Sitting; Cuff Location : Left Arm; Cuff Size: Standard 08-24-2008 13:56-0500 BSA (Body Surface Area) 1.55 m2 Mirella Mccracken [facility] Internal Medicine Work Phone: 08-24-2008 13:56-0500 Head Circumference 0 cm Mirella Mccracken [facility] Internal Medicine Work Phone: 08-24-2008 13:56-0500 Height 149.86 cm Mirella Mccracken [facility] Internal Medicine Work Phone: 08-24-2008 13:56-0500 Pulse (Heart Rate) 80 /min Mirella Mccracken [facility] Internal Medicine Work Phone: Comment on above: Pattern: Regular 08-24-2008 13:56-0500 Respiratory Rate 20 /min Mirella Mccracken [facility] Internal Medicine Work Phone: Comment on above: Pattern: Unlabored 08-24-2008 13:56-0500 Weight 60.41 kg Mirella Mccracken [facility] Internal Medicine Work Phone: 06-28-2008 14:04-0400 BMI (Body Mass Index) 26.93 kg/m2 Mirella [facility]cc[facility] Internal Medicine Work Phone: 06-28-2008 14:04-0400 Body weight 60.47 kg Mirella Mccracken [facility] Internal Medicine Work Phone: 06-28-2008 14:04-0400 BP Diastolic 78 mm[Hg] Mirella Mccracekn [facility] Internal Medicine Work Phone: Comment on above: Patient Position: Sitting; Cuff Location : Left Arm; Cuff Size: Standard 06-28-2008 14:04-0400 BP Systolic 140 mm[Hg] Mirella Mccracken [facility] Internal Medicine Work Phone: Comment on above: Patient Position: Sitting; Cuff Location : Left Arm; Cuff Size: Standard 06-28-2008 14:04-0400 BSA (Body Surface Area) 1.55 m2 Mirella [facility] Work Phone: 06-28-2008 14:04-0400 Head Circumference 0 cm Mirella Mccracken [facility] Internal Medicine Work Phone: 06-28-2008 14:04-0400 Height 149.86 cm Mirella Mccracken [facility] Internal Medicine Work Phone: 06-28-2008 14:04-0400 Pulse (Heart Rate) 68 /min Mirella [facility] Work Phone: Comment on above: Pattern: Regular 06-28-2008 14:04-0400 Respiratory Rate 16 /min Mirella Mccracken [facility] Internal Medicine Work Phone: Comment on above: Pattern: Unlabored 06-28-2008 14:04-0400 Weight 60.47 kg Mirella Mccracken [facility] Internal Medicine Work Phone: Encounters Encounter Date Encounter Type Care Provider Facility Start: 03-14-2025 ambulatory Yesika VICENTE Fa cility:[facility] Start: 03-14-2025 Registered Referred Yesika GREENE Magdaleno Start: 03-06-2025 Registered Referred Yesika Dolan Start: 03-06-2025 End: 03-06-[address] Yesika Faust MD Work Phone: [facility] Start: 03-06-2025 End: 03-06-2025 Patient encounter procedure Zeina Balbuena NP-[facility] -[facility] Work Phone: Start: 02-27-2025 ambulatory Yesika VICENTE Fa cility:[facility] Start: 02-27-2025 Registered Referred Yesika Dolan Start: 02-23-2025 End: 02-23-[address] Yesika Faust MD Work Phone: [facility] Start: 02-23-2025 End: 02-23-2025 Patient encounter procedure Miguel Saldivar TRUDY [facility] Work Phone: Start: 02-13-2025 ambulatory Yesika VICENTE Fa cility:[facility] Start: 02-13-2025 Registered Referred Yesika Dolan Start: 01-31-2025 End: 01-31-[address] Yesika Faust MD Work Phone: [facility] Start: 01-31-2025 End: 01-31-[address] Yesika Faust MD -[facility] Work Phone: Start: 01-23-2025 ambulatory Yesika Masoni ty:[facility] Start: 01-23-2025 Registered Referred Zeina Dolan Start: 01-18-2025 End: 01-18-2025 Departed Referred Yesika Dolan Start: 01-18-2025 Registered Referred Yesika Dolan Start: 01-18-2025 End: 01-18-2025 ambulatory Yesika VICENTE Facility:[facility] Start: 01-14-2025 End: 01-14-[address] Yesika Faust MD Work Phone: [facility] Work Phone: Start: 01-14-2025 End: 01-14-2025 Departed Referred Yesika Dolan Start: 01-14-2025 End: 01-14-2025 ambulatory Yesika VICENTE Facility:[facility] Start: 01-12-2025 End: 01-12-[address] Yesika Faust MD Work Phone: [facility] Work Phone: Start: 01-12-2025 End: 01-12-2025 Departed Referred Yesika Dolan Start: 01-12-2025 Registered Referred Yesika Dolan Start: 01-12-2025 End: 01-12-2025 ambulatory Yesika VICENTE Facility:[facility] Start: 12-16-2024 End: 12-16-[address] Yesika Faust MD Work Phone: [facility] Work Phone: Start: 12-16-2024 End: 12-16-2024 Patient encounter procedure Zeina Balbuena [facility] -[facility] Work Phone: Start: 12-14-2024 End: 12-14-[address] Yesika Faust MD Work Phone: [facility] Work Phone: Start: 12-14-2024 End: 12-14-2024 Departed Referred Yesika DasSoniya Dolan Start: 12-14-2024 Registered Referred Yesika DasSoniya Magdaleno Start: 12-14-2024 End: 12-14-2024 ambulatory Efky Faust OLS Facility:[facility] Start: 11-15-2024 End: 11-15-2024 ambulatory Efky Faust [place] Start: 11-15-2024 End: 11-15-[address] Yesika Faust MD -[facility] Work Phone: Start: 11-14-2024 End: 11-14-[address] Yesika Faust MD Work Phone: [facility] Work Phone: Start: 11-14-2024 End: 11-14-2024 Departed Referred eYsika Dolan Start: 11-14-2024 End: 11-14-2024 ambulatory Efewongbe Sammye OLS Facility:[facility] Start: 10-27-2024 End: 10-27-2024 ambulatory Efewongbe Sammye Facility:[facility] Start: 10-27-2024 End: 10-27-2024 Patient encounter procedure Miguel YATES -[facility] Work Phone: Start: 10-17-2024 ambulatory Efewongbe Sammye OLS Fa cility:[facility] Start: 10-17-2024 Registered Referred Yesika Dolan Start: 10-14-2024 ambulatory Efewongbe Sammye OLS Fa cility:[facility] Start: 10-14-2024 Registered Referred Yesika Dolan Start: 09-20-2024 End: 09-20-2024 ambulatory Efenriquetaongbe Sammye Facility:[facility] Start: 09-20-2024 End: 09-20-[address] Yesika Fuast MD -[facility] Work Phone: Start: 09-16-2024 ambulatory Efenriquetaongbe Sammye OLS Fa cility:[facility] Start: 09-16-2024 Registered Referred Yesika Dolan Start: 08-16-2024 End: 08-16-2024 Departed Referred Yesika Dolan Start: 08-16-2024 End: 08-16-2024 ambulatory Efewongbe Sammye OLS Facility:[facility] Start: 08-09-2024 End: 08-09-2024 ambulatory Efewongbe Olekatihee Facility:[facility] Start: 08-04-2024 End: 08-04-2024 ambulatory Zeina Balbuena NP Facility:[facility] Start: 08-04-2024 End: 08-04-2024 ambulatory Efewongbe Sammye OLS Facility:[facility] Start: 08-02-2024 End: 08-02-2024 ambulatory Efewongbe Oleghe OLS Facility:[facility] Start: 07-28-2024 End: 07-28-2024 ambulatory Zeina Heiditon LABORATORY INSPECTOR Facility:[facility] Start: 07-04-2024 End: 07-04-2024 ambulatory Efewongbe Oleghe Facility:[facility] Start: 06-27-2024 End: 06-27-2024 ambulatory Efewongbe Oleghe Facility:[facility] Start: 06-06-2024 End: 06-06-2024 ambulatory Efewongbe Oleghe Facility:[facility] Start: 05-27-2024 End: 05-27-2024 ambulatory Efewongbe Oleghe OLS Facility:[facility] Start: 05-17-2024 End: 05-17-2024 ambulatory Efewongbe Oleghe Facility:[facility] Start: 05-17-2024 End: 05-17-2024 ambulatory Efewongbe Oleghe OLS Facility:[facility] Start: 05-06-2024 End: 05-06-2024 ambulatory Zeina Heiditon LABORATORY INSPECTOR Facility:[facility] Start: 04-29-2024 End: 04-29-2024 ambulatory Zeina Heiditon LABORATORY INSPECTOR Facility:[facility] Start: 04-29-2024 ambulatory Zeina Esha OLS Fac ility:[facility] Start: 04-14-2024 End: 04-14-2024 ambulatory Efewongbe Oleghe Facility:[facility] Start: 04-04-2024 End: 04-04-2024 ambulatory Zeinawhitney Balbuena LABORATORY INSPECTOR Facility:[facility] Start: 12-22-2023 End: 12-22-[address] Cl Tsang Work Phone: [facility] Work Phone: Start: 11-30-2023 End: 11-30-[address] Cl Tsang Work Phone: [facility] Work Phone: Start: 11-17-2023 End: 11-17-[address] Cl Tsang Work Phone: [facility] Work Phone: Start: 11-17-2023 End: 11-17-[address] Cl Tsang Work Phone: [facility] Start: 10-20-2023 End: 10-20-2023 Patient encounter procedure Dr. Cl Tsang Work Phone: [facility] Work Phone: Start: 10-08-2023 End: 10-08-[address] Cl Tsang Work Phone: [facility] Work Phone: Start: 08-25-2023 End: 08-25-[address] Cl Tsang Work Phone: [facility] Work Phone: Start: 08-18-2023 End: 08-18-[address] Cl Tsang Work Phone: [facility] Work Phone: Start: 08-18-2023 End: 08-18-[address] Cl Tsang Work Phone: [facility] Start: 06-30-2023 End: 06-30-[address] Cl Tsang Work Phone: [facility] Work Phone: Start: 06-08-2023 End: 06-08-[address] Cl Tsang Work Phone: [facility] Work Phone: Start: 06-04-2023 End: 06-04-[address] Cl Tsang Work Phone: [facility] Work Phone: Start: 05-28-2023 End: 05-28-[address] Cl Tsang Work Phone: [facility] Work Phone: Start: 05-21-2023 End: 05-21-[address] Cl Tsang Work Phone: [facility] Work Phone: Start: 05-19-2023 End: 05-19-[address] Cl Tsang Work Phone: [facility] Start: 05-13-2023 End: 05-13-[address] Cl Tsang Work Phone: [facility] Work Phone: Start: 04-09-2023 End: 04-09-[address] Cl Tsang Work Phone: [facility] Work Phone: Start: 04-07-2023 End: 04-07-[address] Cl Tsang Work Phone: [facility] Work Phone: Start: 02-17-2023 End: 02-17-[address] Cl Tsang Work Phone: [facility] Work Phone: Start: 02-17-2023 End: 02-17-[address] Cl Tsang Work Phone: [facility] Work Phone: Start: 02-17-2023 End: 02-17-[address] Cl Tsang Work Phone: [facility] Start: 02-10-2023 End: 02-10-[address] Cl Tsang Work Phone: [facility] Work Phone: Start: 01-12-2023 End: 01-12-[address] Cl Tsang Work Phone: [facility] Work Phone: Start: 01-12-2023 End: 01-12-[address] Cl Tsang Work Phone: [facility] Start: 12-29-2022 End: 12-29-[address] Cl Tsang Work Phone: [facility] Start: 12-23-2022 End: 12-23-[address] Cl Tsang Work Phone: [facility] Start: 12-05-2022 End: 12-05-[address] Cl Tsang Work Phone: [facility] Start: 11-18-2022 End: 11-18-[address] Cl Tsang Work Phone: [facility] Work Phone: Start: 11-18-2022 End: 11-18-[address] Cl Tsang Work Phone: [facility] Start: 10-28-2022 End: 10-28-[address] Cl Tsang Work Phone: [facility] Start: 10-17-2022 End: 10-17-[address] Cl Tsang Work Phone: [facility] Start: 10-08-2022 End: 10-08-[address] Cl Tsang Work Phone: [facility] Start: 09-01-2022 End: 09-01-[address] lC Tsang Work Phone: [facility] Start: 08-19-2022 End: 08-19-[address] Cl Tsang Work Phone: [facility] Work Phone: Start: 08-19-2022 End: 08-19-[address] Cl Tsang Work Phone: [facility] Start: 07-29-2022 End: 07-29-[address] Cl Tsang Work Phone: [facility] Start: 05-29-2022 End: 05-30-[address] Cl Tsang Work Phone: [facility] Start: 05-20-2022 End: 05-20-[address] Cl Tsang Work Phone: [facility] Work Phone: Start: 05-20-2022 End: 05-20-[address] Cl Tsang Work Phone: [facility] Start: 04-18-2022 End: 04-18-[address] Cl Tsang Work Phone: [facility] Start: 03-07-[address] Cl herrera Work Phone: [facility] Start: 01-13-2022 End: 01-13-[address] Cl Tsang Work Phone: [facility] Start: 11-14-2021 End: 11-14-2021 Patient encounter procedure TRUDY YATES Work Phone: [facility] Start: 11-12-2021 End: 11-12-2021 Departed Referred TRUDY YATES Work Phone: [facility] Start: 09-30-2021 End: 09-30-2021 Patient encounter procedure TRUDY YATES Work Phone: [facility] Start: 05-05-2019 Review Mirella montanez [facility] Start: 05-05-2019 End: 05-05-2019 Office outpatient visit 25 minutes Mirella Sunshine [facility] Start: 03-15-2019 Review Mirella Mccracken [facility] Internal [facility] Start: 03-15-2019 End: 03-15-2019 Office outpatient visit [...] 07-02-2016 End: 07-02-2016 Phone Encounter Mirella Sunshine [facility] al Medicine Start: 07-01-2016 End: 07-01-2016 Office [...] outpatient visit 25 minutes Mirella Mccracken [facility] Start: 11-08-2015 End: 11-08-2015 Patient [...] Start: 05-23-2015 End: 05-23-2015 Annotation/Addendum Mirella Sunshine [facility] Start: 05-23-2015 End: 05-23-2015 Office outpatient visit 5 minutes Mirella Sunshine [facility] Start: 05-16-2015 End: 05-16-2015 Office outpatient visit 5 minutes Mirella Sunshine [facility] Start: 05-09-2015 End: 05-09-2015 Office outpatient visit 5 minutes Mirella Sunshine [facility] Start: 04-26-2015 End: 04-26-2015 Phone Encounter Mirella Sunshine [facility] Start: 04-19-2015 End: 04-19-2015 Office outpatient visit 40 minutes Mirella Sunshine [facility] Start: 01-11-2015 End: 01-11-2015 Office outpatient visit 25 minutes Mirella Sunshine [facility] Start: 10-31-2014 End: 10-31-2014 Office outpatient visit 15 minutes Mirella Sunshine [facility] Start: 10-12-2014 End: 10-12-2014 Office outpatient visit 25 minutes Mirella Sunshine [facility] Start: 09-11-2014 End: 09-11-2014 Phone Encounter M[facility]lla Sun[facility] Start: 08-31-2014 End: 08-31-2014 Office outpatient visit 15 minutes Mirella Mccracken [facility] Internal Medicine Start: 08-21-2014 End: 08-22-2014 Office [...] outpatient visit 15 minutes Mirella Mccracken [facility] Start: 04-17-2014 End: 04-17-2014 Office outpatient visit 15 minutes Mirella Mccracken [facility] Start: 04-13-2014 End: 04-13-2014 Phone Encounter Mirella Sunshine [facility] Start: 04-06-2014 End: 04-06-2014 Patient encounter procedure Mirella Mccracken [facility] Start: 04-06-2014 End: 04-06-2014 Patient encounter procedure Mirella Mccracken [facility] Start: 12-30-2013 End: 12-30-2013 Patient encounter procedure Mirella Mccracken [facility] Start: 12-22-2013 End: 12-22-2013 Patient encounter procedure Mirella Mccracken [facility] Start: 12-01-2013 End: 12-01-2013 Phone Encounter Mirella Sun[facility] Start: 12-01-2013 End: 12-01-2013 Patient encounter procedure Mirella Mccracken [facility] Start: 09-23-2013 End: 09-23-2013 Patient encounter procedure Mirella Sunshine [facility] Start: 09-13-2013 End: 09-13-2013 Phone Encounter Mirella Sunshine [facility] Start: 08-01-2013 End: 08-01-2013 Patient encounter procedure Mirella Mccracken [facility] Start: 07-04-2013 End: 07-04-2013 Patient encounter procedure Mirella Mccracken [facility] Start: 06-27-2013 End: 06-27-2013 Patient encounter procedure Mirella Mccracken [facility] Start: 06-20-2013 End: 06-20-2013 Patient encounter procedure Mirella Mccracken [facility] Start: 06-08-2013 End: 06-08-2013 Patient encounter procedure Mirella Mccracken [facility] Start: 05-20-2013 End: 05-20-2013 Patient encounter procedure Mirella Mccracken [facility] Start: 04-22-2013 End: 04-22-2013 Patient encounter procedure Mirella Mccracken [facility] Start: 04-15-2013 End: 04-15-2013 Patient encounter procedure Mirella Mccracken [facility] Start: 03-31-2013 End: 03-31-2013 Patient encounter procedure Mirella Mccracken [facility] Start: 02-28-2013 End: 02-28-2013 Patient encounter procedure Mirella Mccracken [facility] Start: 11-15-2012 End: 11-15-2012 Patient encounter procedure Mirella Mccracken [facility] Start: 10-25-2012 End: 10-25-2012 Patient encounter procedure Mirella Mccracken [facility] Start: 10-21-2012 End: 10-21-2012 Patient encounter procedure Mirella Mccracken [facility] Start: 09-30-2012 End: 09-30-2012 Patient encounter procedure Mirella Mccracken [facility] Start: 09-30-2012 End: 09-30-2012 Phone Encounter Mirellaleatha Mccracken [facility] Start: 09-16-2012 End: 09-16-2012 Patient encounter procedure Mirella Mccracken [facility] Start: 05-27-2012 End: 05-28-2012 Nursing evaluation of patient and report Mirella Nicole [facility] Start: 03-11-2012 End: 03-11-2012 Patient encounter procedure Mirellaleatha Mccracken [facility] Start: 03-04-2012 End: 03-05-2012 Patient encounter procedure Mirellaleatha Mccracken [facility] Start: 02-25-2012 End: 02-25-2012 Patient encounter procedure Mirellaleatha Mccracken [facility] Start: 02-05-2012 End: 02-05-2012 Phone Encounter Mirellaleatha Mccracken [facility] Start: 02-04-2012 End: 02-04-2012 Phone Encounter Mirella Nicole [facility] Start: 01-30-2012 End: 01-30-2012 Patient encounter procedure Mirella Nicole [facility] Start: 01-15-2012 End: 01-15-2012 Patient encounter procedure Mirella Mccracken [facility] Start: 12-31-2011 End: 12-31-2011 Patient encounter procedure Mirella Mccracken [facility] Start: 12-26-2011 End: 12-26-2011 Patient encounter procedure Mirella Mccracken [facility] Start: 12-24-2011 End: 12-24-2011 Patient encounter procedure Mirella Mccracken [facility] Start: 12-15-2011 End: 12-15-2011 Patient encounter procedure Mirella Mccracken [facility] Start: 11-26-2011 End: 11-26-2011 Patient encounter procedure Mirella Mccracken [facility] Start: 11-12-2011 End: 11-12-2011 Patient encounter procedure Mirellaleatha Mccracken [facility] Start: 11-06-2011 End: 11-06-2011 Office outpatient visit 25 minutes Mirella Mccracken [facility] Start: 10-22-2011 End: 10-22-2011 Annotation/Addendum Mirella Mccracken [facility] Start: 10-21-2011 End: 10-21-2011 Office outpatient visit 25 minutes Mirella Nicole [facility] Start: 06-05-2011 End: 06-05-2011 Patient encounter procedure Mirellaleatha Searson [facility] Start: 05-08-2011 End: 05-08-2011 Patient encounter procedure Mirellaleatha Searson [facility] Start: 05-07-2011 End: 05-07-2011 Office outpatient visit 15 minutes Mirella Mccracken [facility] Start: 05-06-2011 End: 05-06-2011 Office outpatient visit 15 minutes Mirella Mccracken [facility] Start: 11-06-2010 End: 11-06-2010 Office outpatient visit 15 minutes Mirella Mccracken [facility] Start: 11-04-2010 End: 11-04-2010 Office outpatient visit 15 minutes Mirella Mccracken [facility] Start: 10-14-2010 End: 10-14-2010 Patient encounter procedure Mirella Nicole [facility] Start: 07-17-2010 End: 07-17-2010 Patient encounter procedure Mirella Nicole [facility] Start: 06-17-2010 End: 06-17-2010 Patient encounter procedure Mriella Nicole [facility] Start: 01-25-2010 End: 01-25-2010 Patient encounter procedure Mirella [facility]rack[facility] Start: 12-13-2009 End: 12-13-2009 Patient encounter procedure Mirella Mccracken [facility] Start: 10-03-2009 End: 10-03-2009 Office outpatient visit 10 minutes Mirella Mccracken [facility] Start: 06-13-2009 End: 06-13-2009 Patient encounter procedure Mirella Mccracken [facility] Start: 01-17-2009 End: 01-17-2009 Office outpatient visit 15 minutes Mirella Mccracken [facility] Start: 01-12-2009 End: 01-12-2009 Office outpatient visit 25 minutes Mirella Mccracken [facility] Start: 01-02-2009 End: 01-02-2009 Patient encounter procedure Mirella Mccracken [facility] Start: 12-07-2008 End: 12-07-2008 Patient encounter procedure Mirella Mccracken [facility] Start: 10-04-2008 End: 10-04-2008 Patient encounter procedure Mirella Mccracken [facility] Start: 09-21-2008 End: 09-21-2008 Office outpatient visit 25 minutes Mirella Mccracken [facility] Start: 08-24-2008 End: 08-24-2008 Patient encounter procedure Mirella Mccracken [facility] Start: 06-28-2008 End: 06-28-2008 Patient encounter procedure Mirella Mccracken [facility] Start: 06-28-2008 End: 06-28-2008 Patient encounter procedure Mirella Mccracken [facility] Start: 06-26-2008 End: 06-26-2008 Historical Summary Mirella Mccracken [facility] Procedures Date Procedure Procedure Detail [...] 1 View (Portable) Comments: See Note; NOTES: [facility] Imaging Services [address] [place] [address] Chest 1 View (Portable) MR#: [id number] Acct: [id number] Name: AGUSTIN GARCIA Rep #: [id number] : 1940 F 79 From: Antoni Gaviria MD PCP: Mirella Mccracken DO Status: [facility] Study: Chest 1 View (Portable) Date of Exam: 05/27/19 Exam# [id number] Ordering Dr: Satish Gonzales MD STUDY: X-RAY [...] CC: Satish Gonzales MD; Mirella Mccracken DO Supervisor Model Making: Signed Mirella Mccracken Start: 05-27-2019 End: 05-27-2019 Shoulder min 2 Views Comments: See Note; NOTES: [facility] Imaging Services [address] [place] [address] Shoulder min 2 Views MR#: [id number] Acct: [id number] Name: AGUSTIN GARCIA Rep #: [id number] : 1940 F 79 From: Antoni Gaviria MD PCP: Mirella Mccracken DO Status: [facility] Study: Shoulder min 2 Views Date of Exam: 05/27/19 Exam# [id number] Ordering Dr: Aury Hyde MD STUDY: X-RAY [...] CC: Aury Hyde MD; Mirella Mccracken DO Supervisor Model Making: Signed Mirella Mccracken Start: 05-27-2019 End: 05-27-2019 Operative Report Comments: See Note; NOTES: [facility] Medical Records Department [address] [place] [address] Operative Report 05/27/19 1615 MR#: [id number] Acct: [id number] Name: AGUSTIN GARCIA Rep #: [id number] : 1940 79 From: Uriel Francois MD PCP: Mirella Mccracken DO Status: REG [facility] Location: [place] [address] Report of Operation Date of Procedure: 05/27/19 [...] back to the operating room at the [facility] local she was placed in dorsolithotomy position went into the bladder with a 21 Vietnamese rigid cystourethroscope cannulated the left ureteral orifice [...] 05-27-2019 Discharge Instruction Comments: See Note; NOTES: [facility] Medical Records Department [address] [place] [address] Instructions for Home/Discharge Instructions 05/27/19 1614 MR#: [id number] Acct: [id number] Name: AGUSTIN GARCIA Clara Rep #: [id number] : 1940 79 From: Uriel Francois MD PCP: Mirella Mccracken DO Status: REG [facility] Discharge Diet: Light diet - advance as [...] MD CC: Mirella Mccracken DO Signed Mirella Mcrcacken Start: 05-27-2019 End: 05-27-2019 Pelvis 1 or 2 Views Comments: See Note; NOTES: [facility] Imaging Services [address] [place] [address] Pelvis 1 or 2 Views MR#: [id number] Acct: [id number] Name: AGUSTIN GARCIA Clara Rep #: [id number] : 1940 F 79 From: Antoni Gaviria MD PCP: Mirella Mccracken DO Status: [facility] Study: Pelvis 1 or 2 Views Date of Exam: 05/27/19 Exam# [id number] Ordering Dr: Uriel Francois MD STUDY: X-RAY [...] CC: Uriel Francois MD; Mirella Mccracken DO Supervisor Model Making: Signed Mirella Mccracken Start: 05-05-2019 End: 05-05-2019 Abdomen/Pelvis WITH Contrast Comments: See Note; NOTES: [facility] Imaging Services [address] [place] [address] Abdomen/Pelvis WITH Contrast MR#: [id number] Acct: [id number] Name: RADHAAGUSTIN M Rep #: [id number] : 1940 F 79 From: Zoran Reinoso MD PCP: Mirella Mccracken DO Status: REG CLI Study: Abdomen/Pelvis WITH Contrast Date of Exam: 05/05/19 Exam# [id number] Ordering Dr: Mirella Mccracken DO STUDY: CT [...] Service support , CC: Mirella Mccracken DO Supervisor Model Making: Signed Mirella Mccracken Work Phone: Start: 03-18-2019 End: 03-18-2019 Pelvic (Non ) Comments: See Note; NOTES: [facility] Imaging Services [address] [place] [address] Pelvic (Non ) MR#: [id number] Acct: [id number] Name: AGUSTIN GARCIA Rep #: [id number] : 1940 F 78 From: Avi Fisher MD PCP: Mirella Mccracken DO Status: REG CLI Study: Pelvic (Non ) Date of Exam: 03/18/19 Exam# [id number] Ordering Dr: Mirella Mccracken DO STUDY: ULTRASOUND [...] Service support , CC: Mirella Mccracken DO Supervisor Model Making: Signed Mirella Mccracken Work Phone: Start: 03-15-2019 End: 03-15-2019 Venous Duplex Lower Extremity Comments: See Note; NOTES: [facility] Cardiovascular Services [address] [facility] [place] [address] Venous Duplex US, Unilateral 03/15/19 1340 MR#: [id number] Acct: [id number] Name: AGUSTIN GARCIA Rep #: [id number] : 1940 78 From: James Moctezuma MD [...] Dictated: 03/15/19 1340 Date Transcribed: 03/15/19 142 Supervisor Model Making: Francisca Mccracken Work Phone: Start: 11-17-2017 End: 11-17-2017 PT D/C Summary (1) Comments: See Note; NOTES: [facility] Physical Therapy [address] [place] [address] Fax REHABILITATION SERVICES DISCHARGE SUMMARY MR#: [id number] Acct: [id number] Name: AGUSTIN GARCIA Rep #: [id number] : 1940 77 From: Chester Christine DPT, [...] please feel free to call me at [phone]. Thank you for the referral of this patient. Sincerely, Chester Christine DPT, CORBY <Electronically signed by Chester Christine DPT, MAKEDA, CSCS> 11/17/17 0920 CC: Mirella Mccracken DO EB Signed Mirella Mccracken Start: 11-13-2017 End: 11-13-2017 Inital Evaluation (1) - PT Comments: See Note; NOTES: [facility] Physical Therapy [facility] [address] [place] [address] Fax REHABILITATION SERVICES INITIAL EVALUATION MR#: [id number] Acct: [id number] Name: AGUSTIN GARCIA Rep #: [id number] : 1940 77 From: Chester Christine DPT, [...] to be FAXED BACK to us at [phone] for Medicare purposes. Please let me know [...] Min 2 Views Comments: See Note; NOTES: [facility] Imaging Services [address] [place] [address] Femur Min 2 Views MR#: [id number] Acct: [id number] Name: AGUSTIN GARCIA Rep #: [id number] : 1940 F 77 From: Edward Jha MD PCP: Mirella Mccracken DO Status: REG CLI Study: Femur Min 2 Views Date of Exam: 10/15/17 Exam# [id number] Ordering Dr: Mirlela Mccracken DO STUDY: X-RAY - LEFT FEMUR REASON FOR STUDY: Female, 77 years old. Pain. No history of trauma. TECHNIQUE: Radiological exam, femur, minimum 2 views COMPARISON: None. FINDINGS: Normal visualized femur. Normal visualized soft tissue structure. There are atherosclerotic vascular calcifications. RAD/Femur Min 2 Views IMPRESSION: Normal x-ray examination of the femur. Electronically Signed: Edward Jha MD at 15:48 EST Tel [phone], Service support , CC: Mirella Mccracken DO Supervisor Model Making: Signed Mirella Mccracken Work Phone: Start: 10-15-2017 End: 10-15-2017 Hip 2-3 Views with Pelvis Comments: See Note; NOTES: [facility] Imaging Services [address] [place] [address] Hip 2-3 Views with Pelvis MR#: [id number] Acct: [id number] Name: AGUSTIN GARCIA Rep #: [id number] : 1940 F 77 From: Edward Jha MD PCP: Mirella Mccracken DO Status: REG CLI Study: Hip 2-3 Views with Pelvis Date of Exam: 10/15/17 Exam# [id number] Ordering Dr: Mirella Mccracken DO STUDY: X-RAY [...] Edward Jha MD at 15:54 EST Tel [phone], Service support , STUDY: X-RAY - PELVIS [...] Edward Jha MD at 15:55 EST Tel [phone], Service support , CC: Mirella Mccracken DO Supervisor Model Making: Signed Mirella Nicole Work Phone: Start: 06-05-2017 End: 06-05-2017 Follow Up Appt 6 months Jose Vargas MD Start: 06-05-2017 End: 06-05-2017 MMM Jose Vargas MD Start: 03-26-2017 End: 03-26-2017 Ribs Uni Min 3V w/PA Chest Comments: See Note; NOTES: [facility] Imaging Services [address] [place] [address] Verdana 4d Ribs Uni Min 3V w/PA Chest MR#: [id number] Acct: [id number] Name: AGUSTIN GARCIA Rep #: [id number] : 1940 F 76 From: Tomas Pat MD PCP: Mirella Mccracken DO Status: REG CLI Study: Ribs Uni Min 3V w/PA Chest Date of Exam: 03/26/17 Exam# [id number] Ordering Dr: Stephenie Burkett MD STUDY: X-RAY [...] CC: Stephenie Burkett MD; Mirella Mccracken DO Supervisor Model Making: Signed Stephenie Burkett Work Phone: Start: 11-13-2016 End: 11-13-2016 Kidney and Bladder Comments: See Note; NOTES: [facility] Imaging Services [address] [place] [address] Verdana 4d Kidney and Bladder MR#: [id number] Acct: [id number] Name: AGUSTIN GARCIA Rep #: [id number] : 1940 F 76 From: Mackenzie Ortega MD PCP: Mirella Mccracken DO Status: REG CLI Study: Kidney and Bladder Date of Exam: 11/13/16 Exam# [id number] Ordering Dr: Uriel Francois MD STUDY: RENAL [...] MD at 16:03 EST , Service support [phone], CC: Uriel Francois MD; Mirella Mccracken DO Supervisor Model Making: Signed Mirella Mccracken Start: 11-03-2016 End: 11-03-2016 Follow Up Appt 9 months Zaria Trevino PA-C Work Phone: Start: 11-03-2016 End: 11-03-2016 [facility] Zaria Trevino PA-C Work Phone: Start: 07-07-2016 End: 07-07-2016 Breast Limited Unilateral Comments: See Note; NOTES: [facility] Imaging Services [address] [place] [address] Radha 4d Breast Limited Unilateral MR#: [id number] Acct: [id number] Name: AGUSTIN GARCIA Rep #: [id number] : 1940 F 76 From: Edward Jha MD PCP: Mirella Mccracken DO Status: REG CLI Study: Breast Limited Unilateral Date of Exam: 07/07/16 Exam# [id number] Ordering Dr: Mirella Mccracken DO STUDY: ULTRASOUND [...] Edward Jha MD at 15:23 EDT Tel [phone], Service support [phone], CC: Mirella Mccracken DO Supervisor Model Making: Signed Mirella Mccracken Work Phone: Start: 07-07-2016 End: 07-07-2016 Unilat Rt Diag Digital AND CAD Comments: See Note; NOTES: [facility] Imaging Services [address] [place] [address] Verdana 4d Unilat Rt Diag Digital AND CAD MR#: [id number] Acct: [id number] Name: AGUSTIN GARCIA Rep #: [id number] : 1940 F 76 From: Edward Jha MD PCP: Mirella Mccracken DO Status: REG CLI Study: Unilat Rt Diag Digital AND CAD Date of Exam: 07/07/16 Exam# [id number] Ordering Dr: Mirella Mccracken DO MAMMOGRAPHY - [...] no significant change since the prior study. [facility]/Unilat Rt Diag Digital AND CAD IMPRESSION: [...] Edward Jha MD at 15:21 EDT Tel [phone], Service support [phone], CC: Mirella Mccracken DO Supervisor Model Making: Signed Mirella Mccracken Work Phone: Start: 05-21-2016 End: 05-22-2016 Foot min 3 Views Comments: See Note; NOTES: [facility] Imaging Services [address] [place] [address] Verdana 4d Foot min 3 Views MR#: [id number] Acct: [id number] Name: AGUSTIN GARCIA Rep #: [id number] : 1940 F 76 From: Edward Jha MD PCP: Mirella Mccracken DO Status: REG CLI Study: Foot min 3 Views Date of Exam: 05/21/16 Exam# [id number] Ordering Dr: Mirella Mccracken DO STUDY: X-RAY [...] Edward Jha MD at 9:42 EDT Tel [phone], Service support [phone], CC: Mirella Mccracken DO Supervisor Model Making: Signed Mirella Nicole Work Phone: Start: 05-07-2016 End: 05-07-2016 Follow Up Appt 6 months Jose Vargas MD Start: 05-07-2016 End: 05-07-2016 MMM Jose Vargas MD Start: 01-04-2016 End: 01-04-2016 Ecg routine ecg w/least 12 lds w/i&r [MEASUREMENTS ANALYSIS] Date of Test: 01/04/2016 10:09:41; Heart Rate: 59; NE Interval: 158; QRS: 88; QT Interval: 432; Corrected QT Interval (QTc): 431; P Wave Dodge: 32; QRS Wave Dodge: 10; T Wave Dodge: 47; Blood Pressure: 110/64 [ECG DIAGNOSTIC STATEMENTS] Date of Test: 01/04/2016 10:09:41; Summary: Sinus Bradycardia WITHIN NORMAL LIMITS Mirella Mccracken Work Phone: Comment on above: sinus elin no acute chg Start: 11-29-2015 End: 11-29-2015 Carotid Duplex Ultrasound Comments: See Note; NOTES: [facility] Cardiovascular Services [address] [place] [address] Carotid Duplex Ultrasound 11/20/15 1035 MR#: [id number] Acct: [id number] Name: AGUSTIN GARCIA Rep #: [id number] : 1940 75 From: Miko Cutler MD [...] the left vertebral artery. Procedure Carotid Duplex 11111. The exam was diagnostic. Exam performed in [...] Dictated: 11/20/15 1035 Date Transcribed: 11/29/15 1556 Supervisor Model Making: Signed Mirella Mccracken Start: 11-13-2015 End: 11-13-2015 Bilat Scrn Digital AND CAD Comments: See Note; NOTES: [facility] Imaging Services [address] [place] [address] Verdana 4d Bilat Scrn Digital AND CAD MR#: [id number] Acct: [id number] Name: AGUSTIN GARCIA Rep #: [id number] : 1940 F 75 From: Edward Jha MD PCP: Mirella Mccracken DO Status: REG CLI Study: Bilat Scrn Digital AND CAD Date of Exam: 11/13/15 Exam# [id number] Ordering Dr: Mirella Mccracken DO MAMMOGRAPHY - [...] delay biopsy of a clinically suspicious abnormality. [id number] Electronically Signed: Edward Jha MD at 14:46 EST Tel [phone], Service support [phone], CC: Mirella Mccracken DO Supervisor Model Making: Signed Mirella Mccracken Work Phone: Start: 11-05-2015 [...] Cervical without Contras Comments: See Note; NOTES: [facility] Imaging Services [address] [place] [address] CAT Scan Report MR#: [id number] Acct: [id number] Name: AGUSTIN GARCIA Rep #: [id number] : 1940 F 75 From: Otoniel Tam MD PCP: Mirella Mccracken DO Status: REG CLI Study: Spine Cervical without Contras Date of Exam: 06/07/15 Exam# [id number] Ordering Dr: Louis Tsang STUDY: CT CERVICAL [...] MD at 16:59 EDT , Service support [phone], CC: Mirella Mccracken DO; LOUIS TSANG Supervisor Model Making: Signed Mirella Mccracken Start: 05-22-2015 End: 05-23-2015 Spine Lumbar without Contrast Comments: See Note; NOTES: [facility] Imaging Services [address] [place] [address] CAT Scan Report MR#: [id number] Acct: [id number] Name: AGUSTIN GARCIA Rep #: [id number] : 1940 F 75 From: Ruddy Pozo MD PCP: Mirella Mccracken DO Status: REG CLI Study: Spine Lumbar without Contrast Date of Exam: 05/22/15 Exam# [id number] Ordering Dr: Louis Tsang STUDY: CT LUMBAR [...] at 10:05 EDT Tel , Service support [phone], CC: Mirella Mccracken DO; [place] TSANG Supervisor Model Making: Signed Mirella Mccracken Start: 05-09-2015 End: 05-10-2015 Documentation of current medications Jose Vargas MD Start: 05-09-2015 End: 05-09-2015 Follow Up Appt 6 months Jose Vargas MD Start: 05-09-2015 End: 10-23-2016 Follow Up Appt Other Jose Vargas MD Start: 05-09-2015 End: 05-09-2015 MM Jose Vargas MD Start: 04-26-2015 End: 04-26-2015 Brain/Head W/WO Contrast Comments: See Note; NOTES: [facility] Imaging Services [address] [place] [address] CAT Scan Report MR#: [id number] Acct: [id number] Name: AGUSTIN GARCIA Rep #: [id number] : 1940 F 74 From: Edward Jha MD PCP: Mirella Mccracken DO Status: REG CLI Study: Brain/Head W/WO Contrast Date of Exam: 04/26/15 Exam# [id number] Ordering Dr: Mirella Mccracken DO STUDY: CT [...] Edward Jha MD at 12:51 EDT Tel [phone], Service support [phone], CC: Mirella Mccracken DO Supervisor Model Making: Signed Mirella Mccracken Work Phone: Start: 10-24-2014 End: 10-24-2014 Breast Complete Unilateral Comments: See Note; NOTES: [facility] Imaging Services [address] [place] [address] Ultrasound Report MR#: [id number] Acct: [id number] Name: RADHAAGUSTIN Rep #: [id number] : 1940 F 74 From: Edward Jha MD PCP: Mirella Mccracken DO Status: REG CLI Study: Breast Complete Unilateral Date of Exam: 10/24/14 Exam# [id number] Ordering Dr: Mirella Mccracken DO STUDY: ULTRASOUND [...] Edward Jha MD at 11:15 EST Tel [phone], Service support [phone], CC: Mirella Mccracken DO Supervisor Model Making: Signed Mirella Mccracken Work Phone: Start: 10-24-2014 End: 10-25-2014 Dexa Bone Density Study (HP) Comments: See Note; NOTES: [facility] Imaging Services [address] [place] [address] Bone Density Report MR#: [id number] Acct: [id number] Name: RADHAAGUSTIN Rep #: [id number] : 1940 F 74 From: Edward Jha MD PCP: Mirella Mccracken DO Status: [facility] CLI Study: Dexa Bone Density Study (HP) Date of Exam: 10/24/14 Exam# [id number] Ordering Dr: Mirella Mccracken DO STUDY: DUAL [...] Edward Jha MD at 10:14 EST Tel [phone], Service support [phone], CC: Mirella Mccracken DO Supervisor Model Making: Signed Mirella Mccracken Work Phone: Start: 10-19-2014 End: 10-20-2014 Bilat Scrn Digital AND CAD Comments: See Note; NOTES: [facility] Imaging Services [address] [place] [address] Breast Imaging Report MR#: [id number] Acct: [id number] Name: AGUSTIN GARCIA Rep #: [id number] : 1940 F 74 From: Edward Jha MD PCP: Mirella Mccracken DO Status: REG CLI Study: Bilat Scrn Digital AND CAD Date of Exam: 10/19/14 Exam# [id number] Ordering Dr: Mirella Mccracken DO MAMMOGRAPHY - [...] Edward Jha MD at 13:38 EST Tel [phone], Service support [phone], CC: Mirella Mccracken DO Supervisor Model Making: Signed Mirella Mccracken Work Phone: Start: 10-10-2014 [...] Brain/Head W/WO Contrast Comments: See Note; NOTES: [facility] Imaging Services [address] [place] [address] CAT Scan Report MR#: [id number] Acct: [id number] Name: AGUSTIN GARCIA Rep #: [id number] : 1940 F 74 From: Audie Hugo MD PCP: Mirella Mccracken DO Status: REG CLI Study: Brain/Head W/WO Contrast Date of Exam: 09/08/14 Exam# [id number] Ordering Dr: Mirella Mccracken DO STUDY: CT [...] To Hugo MD at 8:17 EST Tel [phone], Service support [phone], CC: Mirella Mccracken DO Supervisor Model Making: Signed Mirella Mccracken Work Phone: Start: 07-27-2014 End: 07-27-2014 History and Physical Exam Comments: See Note; NOTES: [facility] Medical Records Department [address] [place] [address] History and Physical 07/27/14 0753 MR#: [id number] Acct: [id number] Name: AGUSTIN GARCIA Rep #: [id number] : 1940 74 From: Nella Howard PCP: Mirella Mccracken DO Status: PRE [facility] [place] [facility] [place] DATE OF SERVICE: 07/28/2014 PREOPERATIVE DIAGNOSIS: Painful [...] scheduled to undergo outpatient surgical intervention at [facility] on July 28, 2014. Pedal pulses are easily palpable bilaterally and consent was reviewed, signed and placed in chart. Nella Howard DPM T: JOVANNA JOB: [id number] 07/27/14 1156 <Electronically signed by Nella Howard > Date: Time: Nella Howard CC: Mirella Mccracken DO; Nella Howard DPM Date Dictated: 07/27/14752 Date Transcribed: 07/27/14752 Supervisor Model Making: Signed ____ I have re-examined the patient. [...] Chest W/WO Contrast Comments: See Note; NOTES: [facility] Imaging Services [address] [place] [address] CAT Scan Report MR#: [id number] Acct: [id number] Name: RADHAAGUSTIN Rep #: [id number] : 1940 F 73 From: Edward Jha MD PCP: Status: REG CLI Study: CTA Chest W/WO Contrast Date of Exam: 12/22/13 Exam# [id number] Ordering Dr: Mirella Mccracken DO STUDY: CTA [...] at 13:14 EDT Tel , Service support [phone], CC: Mirella Mccracken DO Supervisor Model Making: Signed Mirella Mccracken Work Phone: Start: 12-13-2013 [...] Brain/Head w/wo Contrast Comments: See Note; NOTES: [facility] Imaging Services [address] [place] [address] CAT Scan Report MR#: [id number] Acct: [id number] Name: AGUSTIN GARCIA Rep #: [id number] : 1940 F 73 From: Audie Hugo MD PCP: Status: REG CLI Study: Brain/Head w/wo Contrast Date of Exam: 06/20/13 Exam# [id number] Ordering Dr: Stephenie Burkett MD STUDY: CT [...] June 20, 2013 at 3:17:31 PM EDT [phone] Electronically Signed BW/BW If you are the referring physician and would like to consult with the radiologist who provided this interpretation, please contact To Hugo M.D. at [phone]. If this radiologist is unavailable, you will be directed to another radiologist to assist. If you are a patient with a question regarding this report, please contact your referring physician directly. Professional Interpretation Provided By: [employer], Phone , These documents contain legally protected [...] of these documents. CC: Stephenie Burkett MD Supervisor Model Making: Signed Stephenie Burkett Work Phone: Start: 05-04-2013 [...] Alyson richter Comment on above: with surgery [id number] Kidney Problems Alyson richter Comment on above: with surgery [id number] Kidney Problems Alyson richter Comment on above: with surgery [id number] Ligation of fallopia n tube Alyson Dixon [...] metabolic panel calcium total Metabolic Panel, Basic (29545) [facility] Work Phone: Start: 01-21-2018 [...] Phone: Start: 06-05-2017 End: 06-05-2017 MMM MMM [facility] Work Phone: Start: 05-07-2017 Provider Instructions for Treatment [facility] Work Phone: Start: 05-07-2017 Urnls dip stick/tablet reagent auto microscopy URINALYSIS, W/ MICRO (49371) [facility] Work Phone: Start: 05-07-2017 Urine albumin quantitative MICROALBUMIN: CREATININE RATIO (90256) AND (99805) [facility] Work Phone: Start: 12-25-2016 [...] Phone: Start: 07-02-2016 Lipid panel Lipid Panel (32730) [facility] Work Phone: Start: 06-25-2016 Provider Instructions for Treatment [facility] Work Phone: Start: 05-12-2016 End: 05-11-2015 *Hepatic Function Panel *Hepatic Function Panel [facility] Work Phone: Start: 05-12-2016 End: 05-11-2015 Lipid panel [AGGREGATE] *Lipid Profile CC PCP [facility] Work Phone: Start: 05-07-2016 End: 05-07-2016 Follow Up Appt 6 months Follow Up Appt 6 months [facility] Work Phone: Start: 05-07-2016 End: 05-07-2016 MMM MMM [facility] Work Phone: Start: 01-04-2016 Patient Education Instructions for the Patient Before and After Surgery *: instructions [facility] Work Phone: Start: 01-04-2016 Provider Instructions for Treatment [facility] Work Phone: Start: 11-29-2015 Provider Instructions for Treatment [facility] Work Phone: Start: 11-05-2015 End: 11-05-2015 Carotid duplex Carotid duplex [facility] Work Phone: Start: 11-05-2015 End: 11-05-2015 Follow Up Appt 6 months Follow Up Appt 6 months [facility] Work Phone: Start: 11-05-2015 End: 11-05-2015 Follow Up Appt Other Follow Up Appt Other [facility] Work Phone: Start: 11-05-2015 End: 11-05-2015 PFM PFM [facility] Work Phone: Start: 10-24-2015 Provider Instructions for Treatment [facility] Work Phone: Start: 10-24-2015 Blood occult fecal hgb deter ia qual feces 1-3 FECAL OCCULT- Tubes sent home (77749) [facility] Work Phone: Start: 07-26-2015 Patient Education Anxiety: emotional health [facility] Work Phone: Start: 07-26-2015 Provider Instructions for Treatment [facility] Work Phone: Start: 07-26-2015 25 hydroxy includes fractions if performed CALCIFIDIOL (45524) VIT D 25 [facility] Work Phone: Start: 07-26-2015 Urnls dip stick/tablet reagent auto microscopy URINALYSIS, W/ MICRO (27102) [facility] Work Phone: Start: 07-26-2015 Urine albumin quantitative MICROALBUMIN: CREATININE RATIO (91293) AND (07376) [facility] Work Phone: Start: 07-26-2015 Comprehensive metabolic panel METABOLIC PANEL, COMPREHENSIVE (67698) [facility] Work Phone: Start: 07-26-2015 Blood count complete auto&auto difrntl wbc CBC W/AUTO DIFF WBC (06788) [facility] Work Phone: Start: 07-26-2015 Thyrotropin Qn TSH (07069) [facility] Work Phone: Start: 07-26-2015 Lipid panel LIPID PANEL (82286) [facility] Work Phone: Start: 05-09-2015 End: 05-09-2015 Follow Up Appt 6 months Follow Up Appt 6 months [facility] Work Phone: Start: 05-09-2015 End: 10-23-2016 Follow Up Appt Other Follow Up Appt Other [facility] Work Phone: Start: 05-09-2015 End: 05-09-2015 MMM MMM [facility] Work Phone: Start: 04-26-2015 Culture bct isol&prsmptv id isolate ea urine URINE IBRAHIMA CULTURE-IDENTIFICATN (26286) [facility] Work Phone: Start: 04-19-2015 Procedure Education Eprescribed prescriptions (G8553) [facility] Work Phone: Start: 04-19-2015 Provider Instructions for Treatment [facility] Work Phone: Start: 04-19-2015 Cobalamin (Vitamin B12) mass conc VITAMIN B-12 (CYANOCOBALAMIN) (19495) [facility] Work Phone: Start: 04-19-2015 Urnls dip stick/tablet rgnt auto w/o microscopy URINALYSIS W/O MICRO (36690) [facility] Work Phone: Start: 04-19-2015 Thyrotropin Qn TSH (20480) [facility] Work Phone: Start: 04-19-2015 Urine albumin quantitative MICROALBUMIN: CREATININE RATIO (06134) AND (24092) [facility] Work Phone: Start: 04-19-2015 Comprehensive metabolic panel METABOLIC PANEL, COMPREHENSIVE (17518) [facility] Work Phone: Start: 04-19-2015 Blood count complete auto&auto difrntl wbc CBC W/AUTO DIFF WBC (64203) [facility] Work Phone: Start: 04-19-2015 Lipid panel LIPID PANEL (55477) [facility] Work Phone: Start: 04-19-2015 25 hydroxy includes fractions if performed CALCIFIDIOL (11148) VIT D 25 [facility] Work Phone: Start: 01-11-2015 Provider Instructions for Treatment [facility] Work Phone: Start: 01-11-2015 25 hydroxy includes fractions if performed Vitamin D Hydroxy (44500) [facility] Work Phone: Start: 01-11-2015 Lipid panel LIPID PANEL (39397) [facility] Work Phone: Start: 01-11-2015 Thyrotropin Qn TSH (35622) [facility] Work Phone: Start: 01-11-2015 Urnls dip stick/tablet reagent auto microscopy URINALYSIS, W/ MICRO (79960) [facility] Work Phone: Start: 01-11-2015 Urine albumin quantitative MICROALBUMIN: CREATININE RATIO (12860) AND (27421) [facility] Work Phone: Start: 01-11-2015 Comprehensive metabolic panel METABOLIC PANEL, COMPREHENSIVE (35148) [facility] Work Phone: Start: 01-11-2015 Blood count complete auto&auto difrntl wbc CBC W/AUTO DIFF WBC (22971) [facility] Work Phone: Start: 10-31-2014 [...] includes fractions if performed Vitamin D Hydroxy (25276) [facility] Work Phone: Start: 08-31-2014 [...] Phone: Start: 07-13-2014 Procedure Education Eprescribed prescriptions (G5072) [facility] Work Phone: Start: 07-13-2014 [...] (PT) Coag time (PPP) PT (Prothrobim Time) (02437) [facility] Work Phone: Comment on [...] Up Appt Other Follow Up Appt Other [facility] Work Phone: Start: 12-07-2013 End: 12-07-2013 PFM PFM [facility] Work Phone: Start: 12-01-2013 Patient Education Water in diet, brief version [facility] Work Phone: Start: 12-01-2013 Provider Instructions for Treatment [facility] Work Phone: Start: 08-08-2013 End: 08-08-2013 Follow Up Appt 4 months Follow Up Appt 4 months [facility] Work Phone: Start: 08-08-2013 [...] difrntl wbc CBC, PLATELETS & AUT DIFF (03406) [facility] Work Phone: Start: 06-20-2013 CRP mass conc C-Reactive Protein (56796) [facility] Work Phone: Start: 06-20-2013 Sedimentation rate rbc non-automated Sed Rate Erythrocyte (15578) [facility] Work Phone: Start: 06-20-2013 Creatinine mass conc CREATININE BLOOD (91728) [facility] Work Phone: Start: 06-08-2013 Patient Education Flu (Influenza) *: flu shot [facility] Work Phone: Start: 05-20-2013 Provider Instructions for Treatment Reviewed Diagnostic Tests [facility] Work Phone: Start: 05-04-2013 End: 07-07-2013 *BMP *BMP [facility] Work Phone: Start: 04-27-2013 End: 04-27-2013 Pulmonary Fuction Test - complete Pulmonary Fuction Test - complete [facility] Work Phone: Start: 04-22-2013 Provider [...] Chest x-ray X-Ray, Chest, PA & Lateral [facility] Work Phone: Start: 04-19-2013 End: 04-20-2013 Coagulation factor induced.INR assay in platelet poor plasma *PT/INR [facility] Work Phone: Start: 04-19-2013 End: 04-19-2013 Electrocardiogram, complete EKG (In office) [facility] Work Phone: Start: 04-19-2013 End: 04-19-2013 Follow Up Appt Other Follow Up Appt Other [facility] Work Phone: Start: 04-18-2013 End: 04-18-2013 Left & Right Heart Cath W/Grafts Left & Right Heart Cath W/Grafts [facility] Work Phone: Start: 04-15-2013 Patient Education Water in diet, brief version [facility] Work Phone: Start: 04-15-2013 Provider Instructions for Treatment [facility] Work Phone: Start: 03-15-2013 End: 03-09-2013 Echocardiography Echocardiogram (complete) [facility] Work Phone: Start: 02-28-2013 Provider Instructions for Treatment [facility] Work Phone: Start: 02-10-2013 End: 02-10-2013 Arterial exam Arterial exam [facility] Work Phone: Start: 02-10-2013 End: 02-10-2013 Electrocardiogram, complete EKG (In office) [facility] Work Phone: Start: 02-10-2013 End: 02-10-2013 Flecainide [Mass/volume] in Serum or Plasma *FLEC Flecainide (Tambocor) [address] [facility] Work Phone: Start: 02-10-2013 End: 02-10-2013 Follow Up Appt 6 months Follow Up Appt 6 months [facility] Work Phone: Start: 02-10-2013 End: 08-08-2013 Lipid panel [AGGREGATE] *Lipid Profile CC PCP [facility] Work Phone: Start: 02-10-2013 End: 02-10-2013 MMM MMM [facility] Work Phone: Start: 11-15-2012 Provider [...] urine URINE IBRAHIMA CULTURE (TY COL COUNT) (43218) [facility] Work Phone: Start: 09-16-2012 [...] Follow Up Appt 3 months [facility] Work Phone: Start: 03-05-2012 Provider Instructions for [...] 12-24-2011 Fibrin dgradj products d-dimer quantitative D-Dimer (72570) [facility] Work Phone: Start: 12-24-2011 Blood count complete automated CBC (AUTO) (48185) [facility] Work Phone: Start: 12-03-2011 Culture bacterial quanttative colony count urine URINE IBRAHIMA CULTURE-TY COL COUNT (63960) [facility] Work Phone: Start: 11-26-2011 Provider Instructions for Treatment [facility] Work Phone: Start: 11-06-2011 Provider Instructions for Treatment Reviewed Diagnostic Tests [facility] Work Phone: Start: 11-04-2011 Renal function panel Renal function Panel (50461) [facility] Work Phone: Start: 10-22-2011 CRP mass conc C-Reactive Protein (44917) [facility] Work Phone: Start: 10-21-2011 Renal function panel Renal function Panel (56138) [facility] Work Phone: Start: 10-21-2011 Provider Instructions for Treatment Follow up in 2 weeks [facility] Work Phone: Start: 10-21-2011 Fibrin dgradj products d-dimer quantitative D-Dimer (54426) [facility] Work Phone: Start: 10-21-2011 Troponin I.cardiac mass conc Troponin I (44808) [facility] Work Phone: Start: 10-21-2011 Creatine kinase mb fraction only CPK MB FRACTION (23229) [facility] Work Phone: Start: 10-21-2011 Creatine kinase total CREATINE KINASE TOTAL (22375) [facility] Work Phone: Start: 10-21-2011 CRP mass conc C-Reactive Protein (78285) [facility] Work Phone: Start: 06-17-2010 Provider Instructions for Treatment [facility] Work Phone: Start: 12-13-2009 Provider Instructions for Treatment [facility] Work Phone: Start: 01-17-2009 Provider Instructions for Treatment [facility] Work Phone: Start: 01-12-2009 Provider Instructions for Treatment *ERGOCALCIFEROL DOSAGE PER SHEWMON [facility] Work Phone: Start: 01-12-2009 Nuclear Ab IF titer (S) CORTES (ANTINUCLEAR ANTIBODY) (64350) [facility] Work Phone: Start: 01-12-2009 Rheumatoid factor quantitative RHEUMATOID FACTOR-QUANT (86061) [facility] Work Phone: Start: 01-12-2009 25 hydroxy includes fractions if performed Vitamin D Hydroxy (19840) [facility] Work Phone: Comment on above: do in 3-4 months Start: 01-02-2009 Provider Instructions for Treatment [facility] Work Phone: Start: 01-02-2009 25 hydroxy includes fractions if performed Vitamin D Hydroxy (99315) [facility] Work Phone: Start: 01-02-2009 1 25 dihydroxy includes fractions if performed VITAMIN D, 1, 25-DIHYDROXY (62204) [facility] Work Phone: Start: 01-02-2009 Thyrotropin Qn TSH (67237) [facility] Work Phone: Start: 01-02-2009 Protein electrophoretic fractj&quantj serum [facility] Work Phone: Start: 01-02-2009 Sedimentation rate rbc non-automated SED RATE ERYTHROCYTE (49007) [facility] Work Phone: Start: 01-02-2009 Phosphate mass conc PHOSPHORUS (35107) [facility] Work Phone: Start: 01-02-2009 Assay of parathormone PARATHORMONE (38240) [facility] Work Phone: Start: 01-02-2009 Hepatic function panel HEPATIC FUNCTION PANEL (79539) [facility] Work Phone: Start: 01-02-2009 Blood count complete automated CBC (AUTO) (90227) [facility] Work Phone: Start: 01-02-2009 Calcium mass conc CALCIUM SERUM (48865) [facility] Work Phone: Start: 01-02-2009 CRP mass conc C-REACTIVE PROTEIN (82139) [facility] Work Phone: Start: 01-02-2009 ALP enzyme act/vol ALKALINE PHOSPHATASE (60963) [facility] Work Phone: Start: 10-04-2008 Provider Instructions for Treatment [facility] Work Phone: Start: 10-04-2008 Lipid panel LIPID PANEL (63590) [facility] Work Phone: Start: 09-21-2008 Patient Education Water in diet, brief version [facility] Work Phone: Start: 09-21-2008 Provider Instructions for Treatment [facility] Work Phone: Start: 08-24-2008 Provider Instructions for Treatment [facility] Work Phone: Start: 06-28-2008 Provider Instructions for Treatment [facility] Work Phone: Patient Education HYPERLIPIDEMIA [facility] Work Phone: [facility] [...] 06-13-2009 influenza, seasonal, injectable Mirella Nicole [facility] Work Phone: Comment on above: Lot #[id number]-left deltoidgiven by:[facility] 06-28-2008 influenza, seasonal, injectable Mirella Nicole [facility] Work Phone: Comment on above: done km 0.5cc given im ;lt arm lot [id number] exp 02-20 Payers Date Payer Category Payer Unknown [id number] 2024 Self-pay [id number] 2024 Unknown [id number] 2016 Unknown [id number] 2004 Medicare [id number] Medicare MEDICARE PART A B [id number] Private Health Insurance [id number] Unknown Unknown [id number] 2.16.840.1.677271.3.579.2.462 Unknown [id number] 2.16.840.1.809348.3.579.2.462 Unknown [id number] 2.16.840.1.722351.3.579.2.462 Unknown [id number] 2.16840.1.718800.3.579.2.462 Unknown [id number] 2.16.840.1.873218.3.579.2.462 Unknown [id number] 2.16.840.1.229943.3.579.2.462 Unknown [id number] 2.16.840.1.222892.3.579.2.462 Unknown [id number] 2.16.840.1.861940.3.579.2.462 Unknown [id number] 2.16.840.1.085304.3.579.2.462 Unknown [id number] 2.16.840.1.287699.3.579.2.462 Unknown [id number] 2.16.840.1.673844.3.579.2.462 Unknown [id number] 2.16.840.1.747183.3.579.2.462 Unknown [id number] 2.16.840.1.223075.3.579.2.462 Unknown [id number] 2.16.840.1.845544.3.579.2.462 Unknown [id number] 2.16.840.1.083427.3.579.2.462 Unknown [id number] 2.16.840.1.887516.3.579.2.462 Unknown [id number] 2.16.840.1.127684.3.579.2.462 Unknown [id number] 2.16.840.1.780651.3.579.2.462 Unknown [id number] 2.16.840.1.282372.3.579.2.462 Unknown [id number] 2.16.840.1.742886.3.579.2.462 Unknown [id number] 2.16.840.1.657789.3.579.2.462 Unknown [id number] 2.16840.1.923496.3.579.2.462 Unknown [id number] 2.16.840.1.545727.3.579.2.462 Unknown [id number] 2.16.840.1.925910.3.579.2.462 Unknown [id number] 2.16.840.1.972900.3.579.2.462 Unknown [id number] 2.16.840.1.547502.3.579.2.462 Unknown [id number] 2.16.840.1.403843.3.579.2.462 Unknown [id number] 2.16.840.1.511502.3.579.2.462 Unknown [id number] 2.16.840.1.302764.3.579.2.462 Unknown [id number] 2.16.840.1.911768.3.579.2.462 Unknown [id number] 2.16.840.1.867317.3.579.2.462 Unknown [id number] 2.16.840.1.645818.3.579.2.462 Unknown [id number] 2.16.840.1.650721.3.579.2.462 Unknown [id number] 2.16.840.1.561759.3.579.2.462 Unknown [id number] 2.16.840.1.132033.3.579.2.462 Unknown [id number] 2.16.840.1.921516.3.579.2.462 Social History Date Type Detail Facility Caffeine Use Never smoker [facility] Work Phone: Comment on above: 2 per week 3-4 miles QD walking , heterosexua l, celibate Retired Tobacco use: Never smoker. [facility] Work Phone: Start: 09-30-2021 End: 07-09-2023 Tobacco smoking status SCIS Unknown if ever smoked [facility] Start: 06-12-2021 None [facility] Start: 06-12-2021 Homeless [facility] Start: 06-12-2021 Non-smoker [facility] Start: 1940 Sex Assigned At Female W [facility] Start: 02-07-2024 End: 03-02-2025 Tobacco smoking status NHIS Never smoked tobacco (finding) [facility] Start: 12-14-2024 End: 01-04-2025 Sex Female (finding) [facility] Medical Equipment Procedure Code Equipment Code Equipment [...] Evaluation note No assessment information availa ble [facility] Work Phone: Evaluation note Note Date & Type Note Facility Evaluation note Diagnosis Onset Date Pes anserinus bursitis of left knee noneactive Osteoarthritis of left knee noneactive [facility] Work Phone: Evaluation note Note Date & Type Note Facility Evaluation note Diagnosis Onset Date Pes anserinus bursitis of left knee noneactive Osteoarthritis of left knee noneactive Pes anserinus bursitis of left knee noneactive Osteoarthritis of left knee noneactive [facility] Work Phone: Evaluation note Note Date & Type Note Facility Evaluation note Diagnosis Onset Date Osteoarthritis of left knee noneactive Osteoarthritis of left knee noneactive Osteoarthritis of left knee noneactive Osteoarthritis of left knee noneactive [facility] Work Phone: Reason for referral (narrative) Note Date & Type Note Facility Reason for referral (narrative) No reason for referral information available [facility] Work Phone: Family History No Family History [...] Type:Provider Instructions for Treatment How to access [employer] online Indication:Coronary artery disease Start:06-Apr-2014 Instruction Type:Patient [...] Dates Details How to access health informa [email or web address] Indication:Nonsmoker Start:15-Mar-2019 Instruction Type:Patient Education How to access health [employer] online - Detail Indication:Nonsmoker Start:15-Mar-2019 Instruction Type:Patient [...] Instructions for Treatment How to access health [employer] online Indication:Coronary artery disease Start:06-Apr-2014 Instruction Type:Patient [...] Dates Details How to access health informa [employer] online Indication:Nonsmoker Start:05-May-2019 Instruction Type:Patient Education Patient Instructions Indication:Nonsmoker Start:05-May-2019 Instruction Type:Provider Instructions for Treatment How to access health informa [employer] online Indication:Nonsmoker Start:15-Mar-2019 Instruction Type:Patient Education How [...] for Treatment How to access health informa [employer] online Indication:Coronary artery disease Start:13-Jul-2014 Instruction Type:Patient [...] Name Dates Details How to access health [employer] Indication:Nonsmoker Start:05-May-2019 Instruction Type:Patient Education Patient Instructions [...] Type:Provider Instructions for Treatment How to access [employer] online Indication:Coronary artery disease Start:06-Apr-2014 Instruction Type:Patient [...] Yes May 27, 2019 6:37pm Power of Sheet Layer Yes May 6:37pm Advance Directive Response Recorded Date/ Time Advance Directives Yes May 2:39pm Living Will Yes June 04, 2022 2:39pm Power of Sheet Layer Yes May 2:39pm Advance Directive Response Recorded Date/ Time Advance Directives Yes July 9:15am Living Will Yes August 01, 9:15am Power of Sheet Layer Yes August 01, 2022 9:15am Advance Directive Response Recorded Date/ Time Advance Directives Yes July 10:15am Living Will Yes August 01, 10:15am Power of Sheet Layer Yes August 01, 2022 10:15am Advance Directive Response Recorded Date/ Time Advance Directives Yes July 09, 2023 8:23am Living Will Yes July 09 8:23am Power of Sheet Layer Yes July 09, 2023 8:23am Advance Directive Response Recorded Date/ Time Advance Directives Yes July 09, 2023 9:23am Living Will Yes July 09 9:23am Power of Sheet Layer Yes July 09, 2023 9:23am Advance Directive [...] MONTHLY EXAM January 31, 2025 4:00p m LONG-TERM LAB WORK February 13, 2025 5:0 0am LABWORK February 27, 2025 5:00 am Chief Complaint Admit Date LABWORK December 14, 2024 5:00 am Monthly Exam December 16, 2024 5:46 pm LONG-TERM LAB WORK January 12, 2025 5:00 am LABWORK January 14, 2025 8:25am LABWORK January 18, 2025 5:00am LONG-TERM LAB WORK January 23, 2025 5:0 0am MONTHLY EXAM January 31, 2025 4:00p m LONG-TERM LAB WORK February 13, 2025 5:0 0am MONTHLY EXAM February 23, 2025 9:45 am LABWORK February 27, 2025 5:00 am LONG-TERM LAB WORK March 06, 2025 3: 47pm LONG-TERM LAB WORK March 14, 2025 5:0 0am Chief Complaint Admit Date LABWORK December 14, 2024 5:00 am Monthly Exam December 16, 2024 5:46 pm LONG-TERM LAB WORK January 12, 2025 5:00 am LABWORK January 14, 2025 8:25am LABWORK January 18, 2025 5:00am LONG-TERM LAB WORK January 23, 2025 5:0 0am MONTHLY EXAM January 31, 2025 4:00p m LONG-TERM LAB WORK February 13, 2025 5:0 0am MONTHLY EXAM February 23, 2025 9:45 am LABWORK February 27, 2025 5:00 am NEW CONCERN March 06, 2025 3:00 pm LONG-TERM LAB WORK March 06, 2025 3: 47pm LONG-TERM LAB WORK March 14, 2025 5:0 0am Additional Source Comments INFORMATION SOURCE (unrecogn ized section and content) DATE CREATED AUTHOR 10/03/2019 [facility] ([place]) DATE CREATED AUTHOR AUTHOR'S ORGANIZ ATION 04/02/2025 [facility] (unrecognized section and content) Goals [...] MD Primary Care Provider Active Zeina Balbuena LABORATORY INSPECTOR, LABORATORY INSPECTOR-C Attending Provider Active Team Status: Inactive Member [...] Inactive Member Role Status Dates Dr. Yesika aFust MD Primary Care Provider Active Start: August [...] Status: Inactive Member Role Status Dates Dr. Yseika Faust MD Primary [...] 2024 End: December 16, 2024 Zeina Balbuena LABORATORY INSPECTOR, LABORATORY INSPECTOR-C Attending Provider Active Start: December 16, 2024 [...] 2024 End: December 16, 2024 Zeina Balbuena LABORATORY INSPECTOR, LABORATORY INSPECTOR-C Attending Provider Active Start: December 16, 2024 [...] 2025 End: March 06, 2025 Zeina Balbuena LABORATORY INSPECTOR, LABORATORY INSPECTOR-C Attending Provider Active Start: March 06, 2025 [...] BE BASED ON THE PRIMARY CLINICAL RECORDS. [employer] provides no warranty or guarantee of the accuracy or completeness of information in this document.
[2025-04-14 07:39] LABS: Hematocrit 44.9 % (37-47); Hemoglobin 14.4 g/dL (12.0-15.0); Immature Granulocytes Count 0.050 X10^3/uL (0.0-0.0); Mean Corp Hgb Conc 32.1 g/dL (32-36); Mean Corpuscular Volume 96.8 fL (81-99); Mean Platelet Vol. 10.5 fl (6.2-12.0); NRBC Flagged by Analyzer 0 % (0-5); Platelet Count 263 K/mm3 (150-450); RBC Distribution Width CV 13.0 % (11.6-14.6); RBC Distribution Width SD 46.0 fl (35.1-43.9); Red Blood Count 4.64 M/mm3 (4.2-5.4); White Blood Count 8.3 K/mm3 (4.4-11.0)
[2025-04-14 07:45] LABS: AST(SGOT) 19 U/L (<=31); Alanine Aminotransfer ALT/SGPT 19 U/L (<=34); Albumin, Serum 4.2 g/dL (3.4-4.8); Alkaline Phosphatase 135 U/L (35-104); Anion Gap 11 (5-15); BUN 21 mg/dL (4-19); BUN/Creat Ratio 34.0 RATIO (10-20); Bilirubin, Direct 0.09 mg/dL (0.00-0.30); Calcium,Total 9.7 mg/dL (7.6-11.0); Carbon Dioxide 27.5 mmol/L (21.0-32.0); Chloride 100 mmol/L (98-108); Globulin 2.9 g/dL (2.2-4.2); Glucose 114 mg/dL (70-99); Potassium 4.2 mmol/L (3.3-5.1)
== END ==
LOC: OLS.WHLCAR 05:00
PROVIDERS: PCP Internal Medicine; Visit Provider Internal Medicine
DX: I10 Essential (primary) hypertension (principal); I25.10 Atherosclerotic heart disease of native coronary artery without angina pectoris; R53.82 Chronic fatigue, unspecified
CPT/HCPCS: 36415; 80048; 80076; 85025

== ENCOUNTER → 2025-05-16 | Outpatient (REF) | payer MEDICARE, MEDICAID, SELFPAY ==
[2025-05-16 08:32] LABS: Hematocrit 41.8 % (37-47); Hemoglobin 13.5 g/dL (12.0-15.0); Immature Granulocytes Count 0.060 X10^3/uL (0.0-0.0); Mean Corp Hgb Conc 32.3 g/dL (32-36); Mean Corpuscular Volume 98.4 fL (81-99); Mean Platelet Vol. 11.1 fl (6.2-12.0); NRBC Flagged by Analyzer 0 % (0-5); Platelet Count 218 K/mm3 (150-450); RBC Distribution Width CV 13.1 % (11.6-14.6); RBC Distribution Width SD 46.6 fl (35.1-43.9); Red Blood Count 4.25 M/mm3 (4.2-5.4); White Blood Count 11.8 K/mm3 (4.4-11.0)
[2025-05-16 08:56] LABS: Anion Gap 12 (5-15); BUN 16 mg/dL (4-19); BUN/Creat Ratio 24.6 RATIO (10-20); Calcium,Total 9.4 mg/dL (7.6-11.0); Carbon Dioxide 20.3 mmol/L (21.0-32.0); Chloride 103 mmol/L (98-108); Glucose 86 mg/dL (70-99); Potassium 5.2 mmol/L (3.3-5.1)
== END ==
LOC: OLS.WHLCAR 05:00
PROVIDERS: PCP Internal Medicine; Visit Provider Internal Medicine
DX: G30.9 Alzheimer's disease, unspecified (principal); I10 Essential (primary) hypertension; I25.10 Atherosclerotic heart disease of native coronary artery without angina pectoris; R53.82 Chronic fatigue, unspecified
CPT/HCPCS: 36415; 80048; 85025

== ENCOUNTER → 2025-05-22 05:00 | Outpatient (REF) | payer MEDICARE, MEDICAID, SELFPAY ==
--- OUTSIDE RECORDS SUMMARY | 2025-05-22 04:40 | XMS RPT_ITS | CCD ---
Author Organization [facility] Care Team Providers Care Detective Sergeant Name Role Phone Hung Davison Unavailable Unavailable Mirella Mccracken Unavailable Armando Gutierrez Unavailable [facility] Unavailable Art Curry Unavailable Alba Sargent Unavailable Amita Antoine Unavailable Dick Morris Unavailable [facility] Unavailable Kya Valdivia Unavailable Joe Skinner Unavailable Alyson Dixon Unavailable Unavailable Unavailable Unavailable TRUDY Chambers Attending Provider Dr. Cl Tsang Primary Care Provider MD Cl Tsang Referring Provider Unavailable Dr. Thom Montiel Attending Provider TRUDY Chambers Referring Provider Esha BRIM BLOCKER, BRIM BLOCKER-C Zeina Attending Provider Dr. Cl Williamson Primary Care Provider Dr. Cl Tsang Primary Care Provider Esha BRIM BLOCKER, BRIM BLOCKER-C Zeina Attending Provider Dr. Cl Williamson Primary Care Provider sEha BRIM BLOCKER, BRIM BLOCKER-C Zeina Attending Provider Dr. Cl Williamson Referring Provider TRUDY Chambers Attending Provider Dr. Thom Montiel Attending Provider Dr. Cl Tsang Primary Care Provider Dr. Cl Tsang Referring Provider TRUDY Chambers Attending Provider Dr. Thom Montiel Attending Provider Esha BRIM BLOCKER, BRIM BLOCKER-C Zeina Attending Provider UnaDr. Tomas Reyna Attending Provider Dr. Yesika Faust Attending Provider [phone] Dr. Cl Tsang Primary Care Provider Dr. Cl Tsang Referring Provider Dr. Thom Montiel Attending Provider Dr. Cl Tsang Primary Care Provider Esha BRIM BLOCKER, BRIM BLOCKER-C Zeina Attending Provider Unav Dr. Yesika Bailey Attending Provider [phone] Dr. Cl Tsang Referring Provider TRUDY Chambers Attending Provider [phone] Dr. Cl Tsang Primary Care Provider Dr. Cl Tsang Referring Provider TRUDY Chambers Attending Provider [phone] Dr. Thom Montiel Attending Provider Esha BRIM BLOCKER, BRIM BLOCKER-C Zeina Attending Provider Dr. Yesika Reed Attending Provider [phone] Dr. Cl Tsang Primary Care Provider Dr. Yesika Faust Attending Provider [phone] TRUDY Parada Attending Provider [phone] Dr. Cl Tsang Primary Care Provider Dr. Yesika Faust Attending Provider [phone] FANTASMA Shaikh Attending Provider [phone] Christianne GE, Dr. Napoles Primary Care Provider Yesika Faust MD Attending Provider Unavailchristian Faust MD, Dr. Napoles Attending Provider [phone] Miguel Parada Attending Provider [phone] Christianne GE, Dr. Napoles Primary Care Provider Yesika Faust MD Attending Provider Unavailchristian Faust MD, Dr. Napoles Primary Care Provider Yesika Faust MD Attending Provider Unavailchristian Faust MD, Dr. Napoles Attending Provider [phone] Zeina Garcia Attending Provider [phone] Christianne GE, Dr. Napoles Primary Care Provider Yesika Faust MD Attending Provider Unavaila Zeina Butler Attending Provider Christianne GE, Dr. Napoles Primary Care Provider Yesika Faust MD Attending Provider Unavailchristian Faust MD, Dr. Napoles Attending Provider [phone] Miguel Parada Attending Provider [phone] Christianne GE, Dr. Napoles Primary Care Provider Yesika Faust MD Attending Provider Unavaila Zeina Butler Attending Provider Christianne GE, Dr. Napoles Primary Care Provider Yesika Faust MD Attending Provider Unavaila ble Yesika Negron Attending Unavailabl e Oleghe, Efewongbe Primary Care Unavailable Oleghe Yesika VICENTE Attending Unavailabl e Oleghe, Efewongbe Primary Care Unavailable Miguel Parada Attending Unavailable Oleghe, Efewongbe Primary Care Unavailable Oleghe, Efewongbe Primary Care Unavailable Oleghe, Efewongbe Attending Unavailable Christianne, Efewongbe Primary Care Unavailable Tickton CINTHIA, Zenia Attending Unavailable Oleghe OLS, Efewongbe Attending Unavailabl [...] e Oleghe, Efewongbe Primary Care Unavailable Tickton BRIM BLOCKERZeina Attending Unavailable Oleghe, Efewongbe Primary Care Unavailable Tickton BRIM BLOCKERZeina Attending Unavailable Oleghe, Efewongbe Primary Care Unavailable Oleghe, Efewongbe Attending Unavailable Oleghe, Efewongbe Primary Care Unavailable Carmen Shaikh Attending Unavailable Oleghe, Efewongbe Primary Care Unavailable Oleghe OLS, Efewongbe Attending Unavailabl e Oleghe, Efewongbe Primary Care Unavailable Oleghe, Efewongbe Primary Care Unavailable Miguel Parada Attending Unavailable Oleghe OLS, Efewongbe Attending Unavailabl e Oleghe, Efewongbe Primary Care Unavailable Oleghe, Efewongbe Primary Care Unavailable Tickton BRIM BLOCKER, Zeina Attending Unavailable Oleghe, Efewongbe Primary Care Unavailable Miguel Parada Attending Unavailable Oleghe, Efewongbe Primary Care Unavailable Oleghe, Efewongbe Attending Unavailable Tickton BRIM BLOCKER, Zeina Attending Unavailable Oleghe, Efewongbe Primary Care Unavailable Oleghe, Efewongbe Attending Unavailable Oleghe, Efewongbe Primary Care Unavailable Oleghe, Efewongbe Primary Care Unavailable Tickton BRIM BLOCKER, Zeina Attending Unavailable Oleghe, Efewongbe Primary Care Unavailable Oleghe, Efewongbe Attending Unavailable Oleghe, Efewongbe Primary Care Unavailable Tickton BRIM BLOCKER, Ziena Attending Unavailable [place]ton BRIM BLOCKER, Zeina Attending Unavailable Oleghe, Efewongbe Primary Care Unavailable Oleghe, Efewongbe Primary Care Unavailable Oleghe, Efewongbe Attending Unavailable Oleghe OLS, Efewongbe Attending Unavailabl e Oleghe, Efewongbe Primary Care Unavailable Oleghe OLS, Efewongbe Attending Unavailabl e Oleghe, Efewongbe Primary Care Unavailable Allergies Allergy Classification Reported Allergen(s) Allergy Type Date of Onset Reaction(s) Facility (2 sources) acetaminophen / HYDROcodone; Translations: [VICODIN] allergy to substance 05-08-20 11 [facility] Work Phone: (20 sources) HYDROcodone; Translations: [HYDROCODONE] allergy to substance 12-30-19 12 Other [facility] Work Phone: (1 source) Sulfonamides (Antibiotic) drug allergy [facility] Work Phone: (18 sources) Acetaminophen / HYDROcodone; [...] [facility] Work Phone: (18 sources) Acetaminophen Drug Allergy 09-01-20 22 Other [facility] (18 sources) Sulfamethoxazole Drug Allergy 09-01-20 Other [facility] (1 source) Acetaminophen Drug Allergy 02-07-20 [facility] Repository (1 source) Sulfamethoxazole Drug Allergy 02-07-20 [facility] Repository Medications Current Medications Medication [...] TABS One tablet by mouth daily ASPIRIN [id number] Kaelyn Ellis RN Start: 11-12-2011 End: 11-12-2011 ASPIRIN LOW DOSE, 81MG (Oral Tablet Delayed Release) [address] qd for 0 days Quantity: 30 {Tablet_DR} Refills: 0 Ordered: 12-Nov-2011 Mirella Mccracken DO, DO, Kathleen Start : 12-Nov-2011 End : 12-Nov-2011 Discontinued End: 04-12-2012 take 1 tablet by mouth once daily ASPIRIN EC 81 MG TBEC One tablet by mouth daily ASPIRIN [id number] Jose Vargas MD cloNIDine hydrochloride 0.1 mg oral tablet (15 sources) Central alpha-2 Adrenergic Agonist Start: 04-09-2023 [...] PO. diclofenac sodium 0.01 mg/mg topical gel (20 sources) Nonsteroidal Anti-inflammatory Drug Start: 09-30-2021 apply [...] hand docusate sodium 50 mg / sennosides, retirement 8.6 mg oral tablet (11 sources) Start: 02-07-2024 Sennosides-Doc usate Sodium (Senexon-S) [...] 12:00am Start: 02-07-2024 take 1 capsule by [facility] once daily Duloxetine 60 mg capsule,delayed [...] One tablet by mouth daily DULOXETINE HCL [id number] Jose Vargas MD Comment on above: substitute generic p lease escitalopram 10 mg oral tablet (15 sources) Serotonin Reuptake Inhibitor Start: 3 take 1 tablet by mouth once daily Escitalopram Oxalate 10 mg tablet Active 10 mg PO DAILY April 09, 2023 12:00am melatonin 3 mg oral capsule (15 sources) Start: 3 take 1 capsule by mouth at bedtime Melatonin 3 mg capsule Active 3 mg PO BEDTIME April 09, 2023 12:00am oxyCODONE hydrochloride 5 mg oral tablet (20 sources) Opioid Agonist Start: 4 take 1 tablet by mouth every twelve hours Oxycodone 5 mg tablet Active 5 mg PO Q12H February 07, 2024 12:00am Start: 04-09-2023 take 1 capsule by [facility] every six hours as needed for pain Oxycodone 5 mg capsule Active 5 mg PO EVERY 6 HOURS as needed for pain 0 April 09, 2023 12:00am pregabalin 25 mg oral capsule (20 sources) Start: 04-05-2025 End: 05-03-2025 take 1 capsule by mouth once daily in the evening Pregabalin 25 mg capsule Active 25 mg PO daily 30 30 0 May 03, 2025 1:35pm June 01, 2025 12:00am neuropathic pain Give in evening. Start: 02-01-2025 End: 04-01-2025 take 1 capsule [...] 2021 1:00am September 30, 2024 5:08pm Vit C,L-Ka-Oyizf-Lutein-Zeax an (10 sources) Start: 05-13-2019 Vit C,E-Zn-Drugless Physician zu-Iijjiz-Falogy Active 1 EACH PO DAILY May 13, 2019 9:27am Start: 05-13-2019 End: 05-21-2023 Vit C,S-Bs-Zvtkx-Lutein-Zeax an Discontinued 1 EACH PO DAILY May 13, 2019 12:00am May 21, 2023 10:07am Start: 05-13-2019 End: 05-21-2023 Vit C,Y-Ez-Vcmkp-Lutein-Zeax an Discontinued 1 EACH PO DAILY May 12, 2019 11:00pm May 21, 2023 9:07am Start: 05-13-2019 Vit C,E-Zn-Drugless Physician va-Eqzimc-Azchyf Active 1 EACH PO DAILY May 12, 2019 11:00pm Start: 05-13-2019 Vit C,E-Zn-Drugless Physician ri-Xcbwdx-Wzdfte Active 1 EACH PO DAILY May 13, 2019 12:00am Completed/Discontinued Medications Medication Drug Class(es) Dates Sig (Normalized) Sig (Original) HYDROCODONE-ACETAM INOPHEN (2 sources) Opioid Agonist Start: 05-07-2016 take 1 tablet by mouth once daily at bedtime NORCO 5-325 MG TABS One tablet by mouth daily @ bedtime HYDROCODONE-ACETAMI NOPHEN [id number] Jose Vargas MD Start: 05-07-2016 End: 06-05-2017 take 1 tablet by mouth once daily at bedtime NORCO 5-325 MG TABS One tablet by mouth daily @ bedtime HYDROCODONE-ACETAMINOPHEN [id number] Jose Vargas MD acetaminophen 325 mg / oxyCODONE hydrochloride 5 mg oral tablet (20 sources) Opioid Agonist Start: 09-10-2015 End: 11-29-2015 take 1 tablet by mouth twice daily as needed PERCOCET, 5-325MG (Oral Tablet) 1 Tablet bid prn for 0 days Quantity: 30 {Tablet} Refills: 0 Ordered: 29-Nov-2015 Alysno Dixon LPN Start : 10-Sep-2015 End : 29-Nov-2015 Inactive Comments: thirty Start: 12-07-2013 PERCOCET 5-325 MG TABS As needed OXYCODONE-ACETAMINOPHEN [id number] Kaelyn Ellis RN Start: 12-07-2013 PERCOCET 5-325 MG TABS As needed OXYCODONE-ACETAMINOPHEN [id number] Zaria Trevino PA-C Start: 12-07-2013 End: 11-05-2015 PERCOCET 5-325 MG TABS As ne eded OXYCODONE-ACETAMINOPHEN [id number] Zaria Trevino PA-C Start: 02-10-2013 PERCOCET 10-32 5 MG TABS As needed OXYCODONE-ACETAMINOPHEN [id number] Jose Vargas MD Comment on above: thirty [...] mg/ml / simethicone 4 mg/ml oral suspension (15 sources) Start: 04-09-2023 End: 02-07-2024 take 1 [...] One tablet by mouth daily AMIODARONE HCL [id number] Jose Vargas MD Start: 11-25-2011 take 1 tablet by jeffry th twice daily AMIODARONE HCL 200 MG TABS One tablet by mouth twice daily AMIODARONE HCL [id number] Jose Vargas MD amoxicillin 500 mg oral [...] One tablet by mouth daily ATORVASTATIN CALCIUM [id number] Zaria Trevino PA-C Start: 11-25-2011 End: 04-06-2014 [...] 06-Apr-2014 Inactive benzocaine 0.1 mg/mg oral gel (15 sources) Standardized Chemical Allergen Start: 04-09-2023 End: [...] tablet by mouth daily CALCIUM CARBONATE TABS [id number] Dick Morris DO calcium carbonate / vitamin D (2 sources) Start: 01-06-2012 take 1 tablet by mouth once daily CALCIUM + D 600-200 MG-UNIT TABS One tablet by mouth daily CALCIUM CARBONATE-VITAMIN D [id number] Jose Vargas MD Start: 01-06-2012 End: 04-12-2012 take 1 tablet by mouth once daily CALCIUM + D 600-200 MG-UNIT TABS One tablet by mouth daily CALCIUM CARBONATE-VITAMIN D [id number] Jose Vargas MD casanthranol 30 mg / [...] capsule by mouth every week VITAMIN D3, [id number] (Oral Capsule) 1 (one) Capsule Capsule q week for 0 days Quantity: 4 {Capsule} Refills: 3 Ordered: 29-Nov-2015 Alyson Dixon LPN Start : 13-Jul-2014 End : 29-Nov-2015 Inactive Start: 01-06-2012 End: 04-12-2012 take 1 tablet by mouth once daily VITAMIN D 2000 UNIT TABS One tablet by mouth daily CHOLECALCIFEROL [id number] Jose Vargas MD ciprofloxacin 500 mg oral [...] One tablet by mouth daily CRANBERRY CAPS [id number] Zaria Trevino PA-C CRANBERRY-VITAMIN C, 84-20MG (Oral [...] Quantity: 1 {Vial} Refills: 3 Ordered: 04-Jan-2015 Madelaine GE, Stephenie Elizabeth Start : 04-Jan-2015 End : 04-Jan-2015 Inactive desonide 0.0005 mg/mg topical ointment (2 sources) Corticosteroid Start: 05-08-2011 End: 01-06-2012 DESONIDE 0.05 % OINT apply twice daily DESONIDE [id number] Dick Larson Morris DO desoximetasone 2.5 mg/ml topical cream (20 sources) Corticosteroid Start: 05-07-2011 End: 06-05-2011 TOPICORT, 0.25% (External Cream) 1 Cream bid for 0 days Quantity: 1 {Cream} Refills: 0 Ordered: 05-Jun-2011 Alyson Dixon LPN Start : 07-May-2011 End : 05-Jun-2011 Inactive TOPICORT 0.25 % CREA apply twice daily DESOXIMETASONE [id number] Dick D Morris DO End: 04-12-2012 TOPICORT 0.25 % CREA apply t wice daily DESOXIMETASONE [id number] Jose Vargas MD diazePAM 2 mg oral [...] tablet by mouth twice daily DIPHENHYDRAMINE HCL [id number] Mary Nolen RN ergocalciferol 35600 unt oral capsule (20 sources) Provitamin D2 Compound Start: 01-12-2009 End: 04-13-2014 take 1 capsule by mouth every week ERGOCALCIFEROL, [id number] (Oral Capsule) 1 Capsule 2 x week for 0 days Quantity: 8 {Capsule} Refills: 3 Ordered: 13-Apr-2014 Alyson Dixon LPN Start : 12-Jan-2009 End : 13-Apr-2014 Inactive End: 01-06-2012 VITAMIN D (ERGOCALCIFEROL) 5 0000 UNIT CAPS one tablet twice a week ERGOCALCIFEROL [id number] Dick Morris DO estradiol 0.025 mg vaginal [...] tablet by mouth three times daily GABAPENTIN [id number] Jose Vargas MD Start: 02-10-2013 End: 11-05-2015 take 1 tablet by mouth twice daily GABAPENTIN 600 MG TABS One tablet by mouth twice daily GABAPENTIN [id number] Zaria Trevino PA-C Start: 01-06-2012 take 1 tablet by jeffry th three times daily NEURONTIN 100 MG CAPS One tablet by mouth three times daily GABAPENTIN [id number] Jose Vargas MD hydrOXYzine hydrochloride 50 mg [...] once daily ISOSORBIDE MONONITRATE ER 30 MG [id number] One tablet by mouth daily (Imdur) ISOSORBIDE MONONITRATE [id number] Zaria Trevino PA-C Start: 04-27-2013 take 1 tablet by jeffry th once daily IMDUR 60 MG [id number] One tablet by mouth daily ISOSORBIDE MONONITRATE [id number] Jose Vargas MD Start: 03-09-2013 take 1 tablet by jeffry th once daily IMDUR 30 MG [id number] One tablet by mouth daily ISOSORBIDE MONONITRATE [id number] Jose Vargas MD [id number]-[id number] TAB S (2 sources) take 1 tablet by mouth once daily CEREFOLIN TABS One tablet by mouth daily [id number]-[id number] TABS [id number] Dick Morris DO End: 12-22-2011 take 1 tablet by mouth once daily CEREFOLIN TABS One tablet by mouth daily [id number] TABS [id number] Mary Nolen RN lisinopril 5 mg oral tablet (20 sources) Angiotensin Converting Enzyme Inhibitor Start: 04-24-2014 End: 06-27-2014 take 1 tablet by mouth once daily LISINOPRIL 2.5 MG TABS One tablet by mouth daily LISINOPRIL [id number] Kaelyn Ellis RN Start: 12-07-2013 End: 04-10-2014 take 1 tablet by mouth once daily LISINOPRIL 5 MG TABS One tablet by mouth daily LISINOPRIL [id number] Jose Vargas MD Start: 04-27-2013 End: 11-05-2015 [...] tablet (20 sources) Benzodiazepine Start: 01-27-2025 End: 04-19-2025 take 1 tablet by mouth three times daily Lorazepam 0.5 mg tablet Discontinued 0.5 mg PO THREE TIMES A DAY 90 30 0 March 28, 2025 12:00am April 26, 2025 12:00am April 19, 2025 12:28pm agitation Start: 08-22-2024 End: 01-25-2025 take 1 tablet by mouth three times daily Lorazepam 0.5 mg tablet Discontinued 0.5 mg PO THREE TIMES A DAY 90 30 0 December 26, 2024 10:29am January 24, 2025 12:00January 25, 2025 12:08am Dementia with agitation Unspecified [...] TABS One tablet by mouth daily LUTEIN [id number] Zaria Trevino PA-C End: 07-08-2012 take 1 tablet by mouth once daily LUTEIN CAPS One tablet by mouth daily LUTEIN CAPS [id number] Dick Morris DO melatonin 3 mg / vitamin b6 10 mg oral tablet (20 sources) Start: 05-13-2019 End: 05-21-2023 Melatonin-Pyridoxine Hcl [...] Quantity: 30 {Tablet} Refills: 0 Ordered: 21-May-2016 SlaKaterine gerardo LPN Start : 12-Oct-2014 End : 21-May-2016 Discontinued Start: 10-10-2014 End: 11-05-2015 take 1 tablet by mouth once daily MELOXICAM 15 MG TABS One tablet by mouth daily MELOXICAM 75263219232 Zaria Trevino PA-C metaxalone 800 mg oral [...] tablet by mouth twice daily METOPROLOL TARTRATE [id number] Jose Vargas MD Start: 03-11-2012 End: 04-06-2014 [...] tablet by mouth twice daily METOPROLOL TARTRATE [id number] Jose Vargas MD Multivitamin preparation (18 sources) End: 11-29-2015 MULTIVITAMIN (Oral Liquid) for 0 days Refills: 0 Ordered: 29-Nov-2015 Alyson Dixon LPN End : 29-Nov-2015 Inactive nitroglycerin 0.4 mg sublingual tablet (20 sources) Nitrate Vasodilator Start: 01-06-2012 End: 04-10-2014 NITROSTAT 0.4 MG SUBL 1 tablet under tongue every 5 min up to 3 X NITROGLYCERIN [id number] Jose Vargas MD Start: 12-26-2011 End: 11-29-2015 [...] CPDR One capsule by mouth daily OMEPRAZOLE [id number] Lex Byrnes Alexander Start: 12-31-2011 End: 06-20-2013 PRILOSEC, 20MG (Oral Capsule Delayed Release) [address] qd for 0 days Quantity: 30 {Capsule_DR} Refills: 0 Ordered: 20-Jun-2013 FRANCI Castelan Start : 31-Dec-2011 End : 20-Jun-2013 Inactive End: 12-22-2011 take 1 tablet by mouth once daily PRILOSEC 10 MG CPDR One tablet by mouth daily OMEPRAZOLE [id number] Dick Morris DO pantoprazole 20 mg delayed release oral tablet (2 sources) Proton Pump Inhibitor End: 04-12-2012 take 1 tablet by mouth once daily PROTONIX 20 MG TBEC One tablet by mouth daily PANTOPRAZOLE SODIUM [id number] Jose Vargas MD pravastatin sodium 80 mg [...] Three tablets by mouth daily PREDNISONE TABS [id number] Mary Nolen RN take 3 tablets by [facility] once daily PREDNISONE TABS Three tablets by mouth daily PREDNISONE TABS [id number] Dick Morris DO rosuvastatin calcium 10 mg oral tablet (20 sources) HMG-CoA Reductase Inhibitor Start: 02-02-2019 take 1 tablet by mouth once daily Crestor 10 MG Oral Tablet 1 (one) Tablet qd for 0 days Quantity: 30 {Tablet} Refills: 4 Ordered: 02-Feb-2019 Nicole ANAND Mirella Mccracken DO Mirella Start : 02-Feb-2019 Active Comments: substitute generic Start: 01-19-2019 take 1 tablet by jeffry th once daily Crestor 10 MG Oral Tablet 1 (one) Tablet qd for 0 days Quantity: 30 {Tablet} Refills: 4 Ordered: 19-Jan-2019 Nicole ANAND Mirella NicoleGiovanni jiang DOeen Start : 19-Jan-2019 Active Comments: substitute generic [...] One tablet by mouth daily ROSUVASTATIN CALCIUM [id number] Jose Vargas MD Comment on above: substitute generic Mail order. DOCUSATE SODIUM CAPS (2 sources) COLACE CAPS as n eeded DOCUSATE SODIUM CAPS [id number] Dick Morris DO End: 10-10-2014 COLACE CAPS as needed 10/10 DOCUSATE SODIUM CAPS [id number] Zaria Trevino PA-C 28 actuat teriparatide 0.02 [...] mouth once daily DETROL LA 4 MG [id number] One tablet by mouth daily TOLTERODINE TARTRATE [id number] Mary Nolen RN take 1 tablet by jeffry th once daily DETROL LA 4 MG [id number] One tablet by mouth daily TOLTERODINE TARTRATE [id number] Dick Morris DO traMADol hydrochloride 50 mg [...] mouth three times daily TRAMADOL HCL TABS [id number] Dick Morris DO End: 12-22-2011 take 1 tablet by mouth three times daily ULTRAM TABS One tablet by mouth three times daily TRAMADOL HCL TABS [id number] Mary Nolen RN Comment on above: [age]-- [...] : 01-Dec-2013 End : 06-Apr-2014 Inactive Vit C,S-Aw-Cmbff-Lutein-Ze axan 1 EACH capsule (11 sources) Start: 019 End: take 1 capsule by mouth once daily Vit C,Z-Pk-Uylnk-Lutein-Z eaxan 1 EACH capsule Discontinued 1 NMA PO DAILY May 13, 2019 12:00am May 21, 2023 10:07am CHOLECALCIFEROL (4 sources) Start: 016 End: 016 take 1 tablet by mouth once daily VITAMIN D 1000 UNIT TABS One tablet by mouth daily CHOLECALCIFEROL [id number] Zaria Trevino PA-C Start: 11-02-2015 [facility] 1000 UNIT TABS One tablet by mouth daily CHOLECALCIFEROL [id number] Mary Nolen RN Start: 02-10-2013 End: 10-10-2014 take 1 tablet by mouth once daily VITAMIN D 1000 UNIT TABS One tablet by mouth daily CHOLECALCIFEROL [id number] Zaria Trevino PA-C Start: 02-10-2013 take 1 tablet by jeffry th once daily VITAMIN D 1000 UNIT TABS One tablet by mouth daily CHOLECALCIFEROL [id number] Jose Vargas MD Problems Active Problems Problem [...] disease (20 sources) Atherosclerotic heart disease of [place] coronary artery without angina pectoris; Translations: [Coronary arteriosclerosis] Onset: 12-30-2011 10-31-2016 Chronic Delirium, dementia, and amnestic and other cognitive disorders (20 sources) Dementia; Translations: [Dementia with agitation] Onset: [...] on above: dexa due 10/2016 Other aftercare (20 sources) Long-term current use of drug therapy; Translations: [Other detention (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 therapy] 11-23-2017 Episodic Other bone disease and musculoskeletal deformities (11 sources) Avascular necrosis of bone of hip; 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] 02-07-2024 Chronic Other circulatory disease (20 sources) Carotid bruit; Translations: [Other specified symptoms [...] conditions due to external causes (20 sources) History of fall; Translations: [History of falling] 10-24-2013 Episodic Other nervous system disorders (11 sources) Walking disability; Translations: [Difficulty in walking, not elsewhere classified] 02-07-2024 Chronic Other non-traumatic joint disorders (18 sources) Pain in left knee; Translations: [Left [...] of mental health and substance abuse codes (20 sources) Tobacco use and exposure - finding; [...] (current) use of other medications; Translations: [Other detention (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 therapy] Onset: 07-08-2013 Resolved: 05-11-2015 [...] p laced her on asa-- cardio at [place]- he said no more plavix ever- rec [...] p laced her on asa-- cardio at [place] [facility]- he said no more plavix ever- rec [...] lymphocyte countOrd ered By: Yesika Faust on 05-16-2025 Lymphocytes Auto (Unsp spec) [#/Vol] 1.39 10*3/uL 0.83-4.51 [facility] Absolute neutrophil countOrd ered By: Yesika Faust on 05-16-2025 Neutrophils (Bld) [#/Vol] 9.3 10*3/uL High 2.0-7.7 [facility] Anion gap in Serum or Plasma Ordered By: Yesika Faust on 05-16-2025 Anion gap [Moles/Vol] 12 mmol/L 5-15 [facility] Automated lymphocyte count a s percentage of total leukocytesOrdered By: Yesika Faust on 05-16-2025 Lymphocytes/100 WBC Auto (Unsp spec) 11.7 % Low 19-41 [facility] BUN/creatinine ratioOrdered By: ky Faust on 05-16-2025 Urea nitrogen/Creatinine [Mass ratio] 24.6 mg/mg High 10-20 [facility] Basophil percentageOrdered B y: Yesika Faust on 05-16-2025 Basophils/100 WBC (Bld) 0.5 % 0-1 [facility] Carbon dioxide, total [Moles /volume] in Central venous bloodOrdered By: Yesika Faust on 05-16-2025 CO2 [Moles/Vol] 20.3 mmol/L Low 21.0-32.0 [facility] Chloride assayOrdered By: Tad Faust on 05-16-2025 Chloride [Moles/Vol] 103 mmol/L 98-108 [facility] Eosinophil percentageOrdered By: ky Faust on 05-16-2025 Eosinophils/100 WBC (Bld) 0.6 % 0-5 [facility] Erythrocyte distribution wid th ratioOrdered By: Yesika Faust on 05-16-2025 Erythrocyte distribution width (RBC) [Ratio] 13.1 % 11.6-14.6 [facility] Erythrocyte distribution wid th standard deviationOrdered By: ky Faust on 05-16-2025 Erythrocyte distribution width (RBC) [Ratio] 46.6 fl High 35.1-43.9 [facility] Glomerular filtration rate ( GFR) estimation/1.73 sq m using serum, plasma, or whole bOrdered By: Yesika Faust on 05-16-2025 GFR/1.73 sq M.predicted among non-blacks MDRD (S/P/Bld) [Vol rate/Area] 86 mL/min/{1.73_m2} >60 [facility] Comment on above: mL/min/1.73m2 CKD-EP I Creatinine Equation (2020) Hematocrit Auto (Bld) [Volum e fraction]Ordered By: Yesika Faust on 05-16-2025 Hematocrit (Bld) [Volume fraction] 41.8 % 37-47 [facility] Hemoglobin measurementOrdere d By: Yesika Faust on 05-16-2025 Hemoglobin (Bld) [Mass/Vol] 13.5 g/dL 12.0-15.0 [facility] Immature granulocytes/100 WB C Auto (Bld)Ordered By: Yesika Faust on 05-16-2025 Immature granulocytes/100 WBC (Bld) 0.500 % 0.0-0.9 [facility] Comment on above: IG% - Immature Granu locytes (promyelocytes, myelocytes and metamyelocytes) > 1% indicates that a LEFT SHIFT is Present. MCV (mean corpuscular volume ) determinationOrdered By: Jedclevelandmacarena Faust on 05-16-2025 MCV (RBC) [Entitic vol] 98.4 fL 81-99 [facility] Mean corpuscular hemoglobin (MCH) determinationOrdered By: [facility] on 05-16-2025 MCH (RBC) [Entitic mass] 31.8 pg 27.0-32.0 [facility] Mean corpuscular hemoglobin concentration (MCHC) determinationOrdered By: Yesika Faust on 05-16-2025 MCHC (RBC) [Mass/Vol] 32.3 g/dL 32-36 [facility] Mean platelet volume determi nationOrdered By: enriquetaclevelandmacarena Faust on 05-16-2025 Platelet mean volume (Bld) [Entitic vol] 11.1 fL 6.2-12.0 [facility] Monocyte percentageOrdered B y: Yesika Faust on 05-16-2025 Monocytes/100 WBC (Bld) 8.3 % 0-10 [facility] Neutrophil percentageOrdered By: ky Faust on 05-16-2025 Neutrophils/100 WBC (Bld) 78.4 % High 47-70 [facility] Nucleated red blood cell per centageOrdered By: Tadenriquetasaeidmacarena Faust on 05-16-2025 Nucleated RBC/100 WBC (Bld) [Ratio] 0 % 0-5 [facility] Platelet countOrdered By: Tad shymacarena Faust on 05-16-2025 Platelets (Bld) [#/Vol] 218 10*3/uL 150-450 [facility] Potassium measurement (mass/ volume)Ordered By: Yesika Faust on 05-16-2025 Potassium (Unsp spec) [Mass/Vol] 5.2 mmol/L High 3.3-5.1 [facility] Comment on above: Hemolysis present, R esults could be affected. RBC Auto (Bld) [#/Vol]Ordere d By: Yesika Faust on 05-16-2025 RBC (Bld) [#/Vol] 4.25 10*6/uL 4.2-5.4 [facility] Serum creatinine measurement (mass/volume)Ordered By: Yesika Faust on 05-16-2025 Creatinine [Mass/Vol] 0.64 mg/dL Low 0.70-1.20 [facility] Serum glucose measurement (m ass/volume)Ordered By: Yesika Faust on 05-16-2025 Glucose [Mass/Vol] 86 mg/dL 70-99 [facility] Serum or plasma calcium madi urement (mass/volume)Ordered By: Yesika Faust on 05-16-2025 Calcium [Mass/Vol] 9.4 mg/dL 7.6-11.0 [facility] Serum or plasma urea nitroge n measurement (mass/volume)Ordered By: Yesika Faust on 05-16-2025 Urea nitrogen [Mass/Vol] 16 mg/dL 4-19 [facility] Sodium levelOrdered By: Jed jiangbert Christianne on 05-16-2025 Sodium [Moles/Vol] 135 mmol/L 133-145 [facility] White blood cell (WBC) count Ordered By: Yesika Faust on 05-16-2025 WBC (Bld) [#/Vol] 11.8 10*3/uL High 4.4-11.0 [facility] Absolute lymphocyte countOrd ered By: Yesika Faust on 04-14-2025 Lymphocytes Auto (Unsp spec) [#/Vol] 1.92 10*3/uL 0.83-4.51 [facility] Absolute neutrophil countOrd ered By: Yesika Faust on 04-14-2025 Neutrophils (Bld) [#/Vol] 5.3 10*3/uL 2.0-7.7 [facility] Anion gap in Serum or Plasma Ordered By: Yesika Faust on 04-14-2025 Anion gap [Moles/Vol] 11 mmol/L 5-15 [facility] Automated lymphocyte count a s percentage of total leukocytesOrdered By: Yesika Faust on 04-14-2025 Lymphocytes/100 WBC Auto (Unsp spec) 23.1 % 19-41 [facility] BUN/creatinine ratioOrdered By: Yesika Faust on 04-14-2025 Urea nitrogen/Creatinine [Mass ratio] 34.0 mg/mg High 10-20 [facility] Basophil percentageOrdered B y: Yesika Faust on 04-14-2025 Basophils/100 WBC (Bld) 0.6 % 0-1 [facility] Bilirubin directOrdered By: Yesika Faust on 04-14-2025 Bilirubin.direct [Mass/Vol] 0.09 mg/dL 0.00-0.30 [facility] Bilirubin, totalOrdered By: Yesika Faust on 04-14-2025 Bilirubin [Mass/Vol] 0.23 mg/dL 0.00-1.30 [facility] Carbon dioxide, total [Moles /volume] in Central venous bloodOrdered By: Yesika Faust on 04-14-2025 CO2 [Moles/Vol] 27.5 mmol/L 21.0-32.0 [facility] Chloride assayOrdered By: Tad Faust on 04-14-2025 Chloride [Moles/Vol] 100 mmol/L 98-[address] [facility] Eosinophil percentageOrdered By: Yesika Faust on 04-14-2025 Eosinophils/100 WBC (Bld) 3.1 % 0-5 [facility] Erythrocyte distribution wid th ratioOrdered By: Yesika Faust on 04-14-2025 Erythrocyte distribution width (RBC) [Ratio] 13.0 % 11.6-14.6 [facility] Erythrocyte distribution wid th standard deviationOrdered By: ky Faust on 04-14-2025 Erythrocyte distribution width (RBC) [Ratio] 46.0 fl High 35.1-43.9 [facility] Glomerular filtration rate ( GFR) estimation/1.73 sq m using serum, plasma, or whole bOrdered By: Yesika Faust on 04-14-2025 GFR/1.73 sq M.predicted among non-blacks MDRD (S/P/Bld) [Vol rate/Area] 87 mL/min/{1.73_m2} >60 [facility] Comment on above: mL/min/1.73m2 CKD-EP I Creatinine Equation (2020) Hematocrit Auto (Bld) [Volum e fraction]Ordered By: Yesika Faust on 04-14-2025 Hematocrit (Bld) [Volume fraction] 44.9 % 37-47 [facility] Hemoglobin measurementOrdere d By: Yesika Faust on 04-14-2025 Hemoglobin (Bld) [Mass/Vol] 14.4 g/dL 12.0-15.0 [facility] Immature granulocytes/100 WB C Auto (Bld)Ordered By: Yesika Faust 04-14-2025 Immature granulocytes/100 WBC (Bld) 0.600 % 0.0-0.9 [facility] Comment on above: IG% - Immature Granu locytes (promyelocytes, myelocytes and metamyelocytes) > 1% indicates that a LEFT SHIFT is Present. Laboratory - Chemistry and C hemistry - challengeOrdered By: Yesika Faust on 04-14-2025 AST [Catalytic activity/Vol] 19 U/L <32 [facility] MCV (mean corpuscular volume ) determinationOrdered By: Yesika Faust 04-14-2025 MCV (RBC) [Entitic vol] 96.8 fL 81-99 [facility] Mean corpuscular hemoglobin (MCH) determinationOrdered By: Yesika Faust on 04-14-2025 MCH (RBC) [Entitic mass] 31.0 pg 27.0-32.0 [facility] Mean corpuscular hemoglobin concentration (MCHC) determinationOrdered By: Yesika Faust on 04-14-2025 MCHC (RBC) [Mass/Vol] 32.1 g/dL 32-36 [facility] Mean platelet volume determi nationOrdered By: Yesika Faust on 04-14-2025 Platelet mean volume (Bld) [Entitic vol] 10.5 fL 6.2-12.0 [facility] Monocyte percentageOrdered B y: Yesika Faust on 04-14-2025 Monocytes/100 WBC (Bld) 9.3 % 0-10 [facility] Neutrophil percentageOrdered By: Yesika Faust on 04-14-2025 Neutrophils/100 WBC (Bld) 63.3 % 47-70 [facility] Nucleated red blood cell per centageOrdered By: Yesika Faust on 04-14-2025 Nucleated RBC/100 WBC (Bld) [Ratio] 0 % 0-5 [facility] Platelet countOrdered By: Tad Faust on 04-14-2025 Platelets (Bld) [#/Vol] 263 10*3/uL 150-450 [facility] Potassium measurement (mass/ volume)Ordered By: Yesika Faust on 04-14-2025 Potassium (Unsp spec) [Mass/Vol] 4.2 mmol/L 3.3-5.1 [facility] RBC Auto (Bld) [#/Vol]Ordere d By: Yesika Faust on 04-14-2025 RBC (Bld) [#/Vol] 4.64 10*6/uL 4.2-5.4 [facility] Serum creatinine measurement (mass/volume)Ordered By: Yesika Faust on 04-14-2025 Creatinine [Mass/Vol] 0.62 mg/dL Low 0.70-1.20 [facility] Serum globulin measurementOr dered By: Yesika Faust on 04-14-2025 Globulin (S) [Mass/Vol] 2.9 g/dL 2.2-4.2 [facility] Serum glucose measurement (m ass/volume)Ordered By: Yesika Faust on 04-14-2025 Glucose [Mass/Vol] 114 mg/dL High 70-99 [facility] Serum or plasma alanine vela otransferase (ALT) measurementOrdered By: Yesika Faust on 04-14-2025 ALT [Catalytic activity/Vol] 19 U/L <35 [facility] Serum or plasma albumin madi urement (mass/volume)Ordered By: Yesika Faust on 04-14-2025 Albumin [Mass/Vol] 4.2 g/dL 3.4-4.8 [facility] Serum or plasma alkaline mariaelena sphatase measurementOrdered By: Yesika Faust on 04-14-2025 ALP [Catalytic activity/Vol] 135 U/L High 35-104 [facility] Serum or plasma calcium madi urement (mass/volume)Ordered By: Yesika Faust on 04-14-2025 Calcium [Mass/Vol] 9.7 mg/dL 7.6-11.0 [facility] Serum or plasma urea nitroge n measurement (mass/volume)Ordered By: Yesika Faust on 04-14-2025 Urea nitrogen [Mass/Vol] 21 mg/dL High 4-19 [facility] Sodium levelOrdered By: Jed Faust on 04-14-2025 Sodium [Moles/Vol] 139 mmol/L 133-145 [facility] Total proteinOrdered By: Randall Faust on 04-14-2025 Protein [Mass/Vol] 7.1 g/dL 5.9-8.4 [facility] White blood cell (WBC) count Ordered By: Yesika Faust on 04-14-2025 WBC (Bld) [#/Vol] 8.3 10*3/uL 4.4-11.0 [facility] Absolute lymphocyte countOrd ered By: Yesika Faust on 03-14-2025 Lymphocytes Auto (Unsp spec) [#/Vol] 2.03 10*3/uL 0.83-4.51 [facility] Absolute neutrophil countOrd ered By: Yesika Faust on 03-14-2025 Neutrophils (Bld) [#/Vol] 3.4 10*3/uL 2.0-7.7 [facility] Anion gap in Serum or Plasma Ordered By: Yesika Faust on 03-14-2025 Anion gap [Moles/Vol] 9 mmol/L 5-15 [facility] Automated lymphocyte count a s percentage of total leukocytesOrdered By: Yesika Faust on 03-14-2025 Lymphocytes/100 WBC Auto (Unsp spec) 31.4 % 19-41 [facility] BUN/creatinine ratioOrdered By: Yesika Faust on 03-14-2025 Urea nitrogen/Creatinine [Mass ratio] 38.6 mg/mg High 10-20 [facility] Basophil percentageOrdered B y: Yesika Faust on 03-14-2025 Basophils/100 WBC (Bld) 0.5 % 0-1 [facility] Carbon dioxide, total [Moles /volume] in Central venous bloodOrdered By: Yesika Faust on 03-14-2025 CO2 [Moles/Vol] 28.1 mmol/L 21.0-32.0 [facility] Chloride assayOrdered By: Tad Faust on 03-14-2025 Chloride [Moles/Vol] 105 mmol/L 98-108 [facility] Eosinophil percentageOrdered By: Yesika Faust on 03-14-2025 Eosinophils/100 WBC (Bld) 5.6 % High 0-5 [facility] Erythrocyte distribution wid th ratioOrdered By: Yesika Faust on 03-14-2025 Erythrocyte distribution width (RBC) [Ratio] 12.8 % 11.6-14.6 [facility] Erythrocyte distribution wid th standard deviationOrdered By: Yesika Faust on 03-14-2025 Erythrocyte distribution width (RBC) [Ratio] 46.6 fl High 35.1-43.9 [facility] Glomerular filtration rate ( GFR) estimation/1.73 sq m using serum, plasma, or whole bOrdered By: Yesika Faust on 03-14-2025 GFR/1.73 sq M.predicted among non-blacks MDRD (S/P/Bld) [Vol rate/Area] 88 mL/min/{1.73_m2} >60 [facility] Comment on above: mL/min/1.73m2 CKD-EP I Creatinine Equation (2020) Hematocrit Auto (Bld) [Volum e fraction]Ordered By: Yesika Faust on 03-14-2025 Hematocrit (Bld) [Volume fraction] 39.8 % 37-47 [facility] Hemoglobin measurementOrdere d By: Yesika Faust on 03-14-2025 Hemoglobin (Bld) [Mass/Vol] 12.8 g/dL 12.0-15.0 [facility] Immature granulocytes/100 WB C Auto (Bld)Ordered By: ky Faust on 03-14-2025 Immature granulocytes/100 WBC (Bld) 0.600 % 0.0-0.9 [facility] Comment on above: IG% - Immature Granu locytes (promyelocytes, myelocytes and metamyelocytes) > 1% indicates that a LEFT SHIFT is Present. MCV (mean corpuscular volume ) determinationOrdered By: Yesika Faust on 03-14-2025 MCV (RBC) [Entitic vol] 99.0 fL 81-99 [facility] Mean corpuscular hemoglobin (MCH) determinationOrdered By: Yesika Faust on 03-14-2025 MCH (RBC) [Entitic mass] 31.8 pg 27.0-32.0 [facility] Mean corpuscular hemoglobin concentration (MCHC) determinationOrdered By: Yesika Faust on 03-14-2025 MCHC (RBC) [Mass/Vol] 32.2 g/dL 32-36 [facility] Mean platelet volume determi nationOrdered By: Yesika Faust on 03-14-2025 Platelet mean volume (Bld) [Entitic vol] 10.4 fL 6.2-12.0 [facility] Monocyte percentageOrdered B y: Yesika Faust on 03-14-2025 Monocytes/100 WBC (Bld) 10.2 % High 0-10 [facility] Neutrophil percentageOrdered By: Yesika Scoutkathieaida on 03-14-2025 Neutrophils/100 WBC (Bld) 51.7 % 47-70 [facility] Nucleated red blood cell per centageOrdered By: Tadenriquetasaeidmacarena Butterfieldkathieaida on 03-14-2025 Nucleated RBC/100 WBC (Bld) [Ratio] 0 % 0-5 [facility] Platelet countOrdered By: Tad ky Christianne on 03-14-2025 Platelets (Bld) [#/Vol] 238 10*3/uL 150-450 [facility] Potassium measurement (mass/ volume)Ordered By: Tadenriquetasaeidmacarena Faust on 03-14-2025 Potassium (Unsp spec) [Mass/Vol] 4.1 mmol/L 3.3-5.1 [facility] RBC Auto (Bld) [#/Vol]Ordere d By: Jedsaeidmacarena Faust on 03-14-2025 RBC (Bld) [#/Vol] 4.02 10*6/uL Low 4.2-5.4 [facility] Serum creatinine measurement (mass/volume)Ordered By: Tadky Faust on 03-14-2025 Creatinine [Mass/Vol] 0.60 mg/dL Low 0.70-1.20 [facility] Serum glucose measurement (m ass/volume)Ordered By: Yesika Faust on 03-14-2025 Glucose [Mass/Vol] 82 mg/dL 70-99 [facility] Serum or plasma calcium madi urement (mass/volume)Ordered By: Yesika Faust on 03-14-2025 Calcium [Mass/Vol] 9.1 mg/dL 7.6-11.0 [facility] Serum or plasma urea nitroge n measurement (mass/volume)Ordered By: Tadky Faust on 03-14-2025 Urea nitrogen [Mass/Vol] 23 mg/dL High 4-19 [facility] Sodium levelOrdered By: Tadenriqueta denae Christianne on 03-14-2025 Sodium [Moles/Vol] 142 mmol/L 133-145 [facility] White blood cell (WBC) count Ordered By: Yesika Faust on 03-14-2025 WBC (Bld) [#/Vol] 6.5 10*3/uL 4.4-11.0 [facility] Bilirubin Test strip Ql (U)O rdered By: Yesika Faust on 03-06-2025 Bilirubin Ql (U) Negative Negative [facility] Ketones Test strip Ql (U)Ord ered By: Yesika Faust on 03-06-2025 Ketones Ql (U) 5 mg/dl High Negative [facility] Nitrite Test strip Ql (U)Ord ered By: Yesika Faust on 03-06-2025 Nitrite Ql (U) Negative Negative [facility] Protein Test strip Ql (U)Ord ered By: Yesika Faust on 03-06-2025 Protein Ql (U) 100 mg/dl High Negative [facility] Urine clarityOrdered By: Randall Faust on 03-06-2025 Clarity (U) Turbid Clear [facility] Urine color determinationOrd ered By: Yesika Faust on 03-06-2025 Color (U) Yellow Yellow [facility] Urine cultureOrdered By: Randall Faust on 03-06-2025 Bacteria identified Cx Nom (U) Proteus mirabilis Abnormal [facility] Urine glucose detectionOrder ed By: Yesika Faust on 03-06-2025 Glucose Ql (U) Normal mg/dl Normal [facility] Urine leukocyte esterase det ection by dipstickOrdered By: Yesika Faust on 03-06-2025 Leukocyte esterase Test strip Ql (U) 500 /ul High Negative [facility] Urine pHOrdered By: Fernando Faust on 03-06-2025 pH (U) 6.0 [pH] 5.0 - 8.0 [facility] Urine specific gravity measu rementOrdered By: Yesika Faust on 03-06-2025 Specific gravity (U) [Rel density] 1.020 1.002-1.03 0 [facility] Urine urobilinogen measureme ntOrdered By: Yesika Faust on 03-06-2025 Urobilinogen Ql (U) Normal mg/dl Normal [facility] Serum or plasma valproate me asurement (mass/volume)Ordered By: Yesika Faust on 02-27-2025 Valproate [Mass/Vol] 15 ug/mL Low 50-100 [facility] Comment on above: Valproic Acid concen trations >100 ug/mL are potentially toxic. Absolute lymphocyte countOrd ered By: Yesika Faust on 02-13-2025 Lymphocytes Auto (Unsp spec) [#/Vol] 1.82 10*3/uL 0.83-4.51 [facility] Absolute neutrophil countOrd ered By: Yesika Faust on 02-13-2025 Neutrophils (Bld) [#/Vol] 3.5 10*3/uL 2.0-7.7 [facility] Anion gap in Serum or Plasma Ordered By: Yesika Faust on 02-13-2025 Anion gap [Moles/Vol] 10 mmol/L 5-15 [facility] Automated lymphocyte count a s percentage of total leukocytesOrdered By: Yesika Faust on 02-13-2025 Lymphocytes/100 WBC Auto (Unsp spec) 29.1 % 19-41 [facility] BUN/creatinine ratioOrdered By: Yesika Faust on 02-13-2025 Urea nitrogen/Creatinine [Mass ratio] 32.3 mg/mg High 10-20 [facility] Basophil percentageOrdered B y: Yesika Faust on 02-13-2025 Basophils/100 WBC (Bld) 0.6 % 0-1 [facility] Carbon dioxide, total [Moles /volume] in Central venous bloodOrdered By: Yesika Faust on 02-13-2025 CO2 [Moles/Vol] 28.1 mmol/L 21.0-32.0 [facility] Chloride assayOrdered By: Tad Faust on 02-13-2025 Chloride [Moles/Vol] 101 mmol/L 98-108 [facility] Eosinophil percentageOrdered By: Yesika Faust on 02-13-2025 Eosinophils/100 WBC (Bld) 3.7 % 0-5 [facility] Erythrocyte distribution wid th ratioOrdered By: Yesika Faust on 02-13-2025 Erythrocyte distribution width (RBC) [Ratio] 12.9 % 11.6-14.6 [facility] Erythrocyte distribution wid th standard deviationOrdered By: Yesika Faust on 02-13-2025 Erythrocyte distribution width (RBC) [Ratio] 46.5 fl High 35.1-43.9 [facility] Glomerular filtration rate ( GFR) estimation/1.73 sq m using serum, plasma, or whole bOrdered By: enriquetaclevelandmacarena Faust on 02-13-2025 GFR/1.73 sq M.predicted among non-blacks MDRD (S/P/Bld) [Vol rate/Area] 87 mL/min/{1.73_m2} >60 [facility] Comment on above: mL/min/1.73m2 CKD-EP I Creatinine Equation (2020) Hematocrit Auto (Bld) [Volum e fraction]Ordered By: Yesika Faust on 02-13-2025 Hematocrit (Bld) [Volume fraction] 43.2 % 37-47 [facility] Hemoglobin measurementOrdere d By: Yesika Faust on 02-13-2025 Hemoglobin (Bld) [Mass/Vol] 13.9 g/dL 12.0-15.0 [facility] Immature granulocytes/100 WB C Auto (Bld)Ordered By: Yesika Faust on 02-13-2025 Immature granulocytes/100 WBC (Bld) 0.300 % 0.0-0.9 [facility] Comment on above: IG% - Immature Granu locytes (promyelocytes, myelocytes and metamyelocytes) > 1% indicates that a LEFT SHIFT is Present. MCV (mean corpuscular volume ) determinationOrdered By: Yesika Faust on 02-13-2025 MCV (RBC) [Entitic vol] 97.7 fL 81-99 [facility] Mean corpuscular hemoglobin (MCH) determinationOrdered By: enriquetaclevelandmacarena Faust 02-13-2025 MCH (RBC) [Entitic mass] 31.4 pg 27.0-32.0 [facility] Mean corpuscular hemoglobin concentration (MCHC) determinationOrdered By: Yesika Faust on 02-13-2025 MCHC (RBC) [Mass/Vol] 32.2 g/dL 32-36 [facility] Mean platelet volume determi nationOrdered By: Yesika Faust on 02-13-2025 Platelet mean volume (Bld) [Entitic vol] 10.3 fL 6.2-12.0 [facility] Monocyte percentageOrdered B y: Yesika Faust on 02-13-2025 Monocytes/100 WBC (Bld) 10.7 % High 0-10 [facility] Neutrophil percentageOrdered By: Yesika Faust on 02-13-2025 Neutrophils/100 WBC (Bld) 55.6 % 47-70 [facility] Nucleated red blood cell per centageOrdered By: Yesika Faust on 02-13-2025 Nucleated RBC/100 WBC (Bld) [Ratio] 0 % 0-5 [facility] Platelet countOrdered By: Tad Faust on 02-13-2025 Platelets (Bld) [#/Vol] 231 10*3/uL 150-450 [facility] Potassium measurement (mass/ volume)Ordered By: Yesika Faust on 02-13-2025 Potassium (Unsp spec) [Mass/Vol] 4.0 mmol/L 3.3-5.1 [facility] RBC Auto (Bld) [#/Vol]Ordere d By: Yesika Faust on 02-13-2025 RBC (Bld) [#/Vol] 4.42 10*6/uL 4.2-5.4 [facility] Serum creatinine measurement (mass/volume)Ordered By: Yesika Faust on 02-13-2025 Creatinine [Mass/Vol] 0.62 mg/dL Low 0.70-1.20 [facility] Serum glucose measurement (m ass/volume)Ordered By: Yesika Faust on 02-13-2025 Glucose [Mass/Vol] 88 mg/dL 70-99 [facility] Serum or plasma calcium madi urement (mass/volume)Ordered By: Yesika Faust on 02-13-2025 Calcium [Mass/Vol] 9.3 mg/dL 7.6-11.0 [facility] Serum or plasma urea nitroge n measurement (mass/volume)Ordered By: Yesika Faust on 02-13-2025 Urea nitrogen [Mass/Vol] 20 mg/dL High 4-19 [facility] Sodium levelOrdered By: Jed denae Christianne on 02-13-2025 Sodium [Moles/Vol] 140 mmol/L 133-145 [facility] White blood cell (WBC) count Ordered By: Yesika Faust on 02-13-2025 WBC (Bld) [#/Vol] 6.3 10*3/uL 4.4-11.0 [facility] Potassium measurement (mass/ volume)Ordered By: Zeina Balbuena on 01-23-2025 Potassium (Unsp spec) [Mass/Vol] 3.8 mmol/L 3.3-5.1 [facility] Absolute lymphocyte countOrd ered By: Yesika Faust on 01-18-2025 Lymphocytes Auto (Unsp spec) [#/Vol] 1.51 10*3/uL 0.83-4.51 [facility] Absolute neutrophil countOrd ered By: Yesika Faust on 01-18-2025 Neutrophils (Bld) [#/Vol] 3.9 10*3/uL 2.0-7.7 [facility] Anion gap in Serum or Plasma Ordered By: Yesika Faust on 01-18-2025 Anion gap [Moles/Vol] 12 mmol/L 5-15 [facility] Automated lymphocyte count a s percentage of total leukocytesOrdered By: Yesika Faust on 01-18-2025 Lymphocytes/100 WBC Auto (Unsp spec) 23.4 % 19-41 [facility] BUN/creatinine ratioOrdered By: ky Faust on 01-18-2025 Urea nitrogen/Creatinine [Mass ratio] 36.2 mg/mg High 10-20 [facility] Basophil percentageOrdered B y: Yesika Faust on 01-18-2025 Basophils/100 WBC (Bld) 0.6 % 0-1 [facility] Bilirubin directOrdered By: Yesika Faust on 01-18-2025 Bilirubin.direct [Mass/Vol] 0.11 mg/dL 0.00-0.30 [facility] Bilirubin, totalOrdered By: Yesika Faust on 01-18-2025 Bilirubin [Mass/Vol] 0.25 mg/dL 0.00-1.30 [facility] Carbon dioxide, total [Moles /volume] in Central venous bloodOrdered By: Yesika Faust on 01-18-2025 CO2 [Moles/Vol] 22.7 mmol/L 21.0-32.0 [facility] Chloride assayOrdered By: Tad Faust on 01-18-2025 Chloride [Moles/Vol] 107 mmol/L 98-108 [facility] Eosinophil percentageOrdered By: Yesika Faust on 01-18-2025 Eosinophils/100 WBC (Bld) 6.1 % High 0-5 [facility] Erythrocyte distribution wid th ratioOrdered By: Yesika Faust on 01-18-2025 Erythrocyte distribution width (RBC) [Ratio] 13.4 % 11.6-14.6 [facility] Erythrocyte distribution wid th standard deviationOrdered By: Yesika Faust 01-18-2025 Erythrocyte distribution width (RBC) [Ratio] 46.6 fl High 35.1-43.9 [facility] Glomerular filtration rate ( GFR) estimation/1.73 sq m using serum, plasma, or whole bOrdered By: Yesika Faust on 01-18-2025 GFR/1.73 sq M.predicted among non-blacks MDRD (S/P/Bld) [Vol rate/Area] 80 mL/min/{1.73_m2} >60 [facility] Comment on above: mL/min/1.73m2 CKD-EP I Creatinine Equation (2020) Hematocrit Auto (Bld) [Volum e fraction]Ordered By: Yesika Faust 01-18-2025 Hematocrit (Bld) [Volume fraction] 42.1 % 37-47 [facility] Hemoglobin measurementOrdere d By: Yesika Faust 01-18-2025 Hemoglobin (Bld) [Mass/Vol] 14.2 g/dL 12.0-15.0 [facility] Immature granulocytes/100 WB C Auto (Bld)Ordered By: Yesika Faust on 01-18-2025 Immature granulocytes/100 WBC (Bld) 0.500 % 0.0-0.9 [facility] Comment on above: IG% - Immature Granu locytes (promyelocytes, myelocytes and metamyelocytes) > 1% indicates that a LEFT SHIFT is Present. Laboratory - Chemistry and C hemistry - challengeOrdered By: Yesika Faust on 01-18-2025 AST [Catalytic activity/Vol] 19 U/L <32 [facility] MCV (mean corpuscular volume ) determinationOrdered By: Yesika Faust on 01-18-2025 MCV (RBC) [Entitic vol] 94.4 fL 81-99 [facility] Mean corpuscular hemoglobin (MCH) determinationOrdered By: Yesika Faust on 01-18-2025 MCH (RBC) [Entitic mass] 31.8 pg 27.0-32.0 [facility] Mean corpuscular hemoglobin concentration (MCHC) determinationOrdered By: Yesika Faust on 01-18-2025 MCHC (RBC) [Mass/Vol] 33.7 g/dL 32-36 [facility] Mean platelet volume determi nationOrdered By: Yesika Faust on 01-18-2025 Platelet mean volume (Bld) [Entitic vol] 11.6 fL 6.2-12.0 [facility] Monocyte percentageOrdered B y: Yesika Faust on 01-18-2025 Monocytes/100 WBC (Bld) 9.3 % 0-10 [facility] Neutrophil percentageOrdered By: Yesika Faust on 01-18-2025 Neutrophils/100 WBC (Bld) 60.1 % 47-70 [facility] Nucleated red blood cell per centageOrdered By: Yesika Faust on 01-18-2025 Nucleated RBC/100 WBC (Bld) [Ratio] 0 % 0-5 [facility] Platelet countOrdered By: aTd Faust on 01-18-2025 Platelet count TNP [facility] Comment on above: Test not [...] Platelets LM Ql (Bld) SLT DEC ADEQ [facility] Potassium measurement (mass/ volume)Ordered By: Yesika Faust on 01-18-2025 Potassium (Unsp spec) [Mass/Vol] 5.6 mmol/L High 3.3-5.1 [facility] RBC Auto (Bld) [#/Vol]Ordere d By: Yesika Faust on 01-18-2025 RBC (Bld) [#/Vol] 4.46 10*6/uL 4.2-5.4 [facility] Serum creatinine measurement (mass/volume)Ordered By: Yesika Faust on 01-18-2025 Creatinine [Mass/Vol] 0.73 mg/dL 0.70-1.20 [facility] Serum globulin measurementOr dered By: Yesika Faust on 01-18-2025 Globulin (S) [Mass/Vol] 2.5 g/dL 2.2-4.2 [facility] Serum glucose measurement (m ass/volume)Ordered By: Yesika Faust on 01-18-2025 Glucose [Mass/Vol] 84 mg/dL 70-99 [facility] Serum or plasma alanine vela otransferase (ALT) measurementOrdered By: Yesika Faust on 01-18-2025 ALT [Catalytic activity/Vol] 14 U/L <35 [facility] Serum or plasma albumin madi urement (mass/volume)Ordered By: Yesika Faust on 01-18-2025 Albumin [Mass/Vol] 3.7 g/dL 3.4-4.8 [facility] Serum or plasma alkaline mariaelena sphatase measurementOrdered By: Yesika Faust on 01-18-2025 ALP [Catalytic activity/Vol] 106 U/L High 35-104 [facility] Serum or plasma calcium madi urement (mass/volume)Ordered By: Yesika Faust on 01-18-2025 Calcium [Mass/Vol] 9.1 mg/dL 7.6-11.0 [facility] Serum or plasma urea nitroge n measurement (mass/volume)Ordered By: Yesika Faust on 01-18-2025 Urea nitrogen [Mass/Vol] 27 mg/dL High 4-19 [facility] Sodium levelOrdered By: Jed Faust on 01-18-2025 Sodium [Moles/Vol] 141 mmol/L 133-145 [facility] Total proteinOrdered By: Randall Faust on 01-18-2025 Protein [Mass/Vol] 6.1 g/dL 5.9-8.4 [facility] White blood cell (WBC) count Ordered By: Yesika Faust on 01-18-2025 WBC (Bld) [#/Vol] 6.4 10*3/uL 4.4-11.0 [facility] Bilirubin Test strip Ql (U)O rdered By: Yesika Faust on 01-14-2025 Bilirubin Ql (U) Negative Negative [facility] Ketones Test strip Ql (U)Ord ered By: Yesika Faust on 01-14-2025 Ketones Ql (U) Negative Negative [facility] Nitrite Test strip Ql (U)Ord ered By: Yesika Faust on 01-14-2025 Nitrite Ql (U) Negative Negative [facility] Protein Test strip Ql (U)Ord ered By: Yesika Faust on 01-14-2025 Protein Ql (U) 30 mg/dl High Negative [facility] Urine clarityOrdered By: Randall Faust on 01-14-2025 Clarity (U) Cloudy Clear [facility] Urine color determinationOrd ered By: Yesika Fasut on 01-14-2025 Color (U) Yellow Yellow [facility] Urine cultureOrdered By: Randall Faust on 01-14-2025 Bacteria identified Cx Nom (U) Proteus mirabilis Abnormal [facility] Urine glucose detectionOrder ed By: Yesika Faust on 01-14-2025 Glucose Ql (U) Normal mg/dl Normal [facility] Urine leukocyte esterase det ection by dipstickOrdered By: Yesika Faust on 01-14-2025 Leukocyte esterase Test strip Ql (U) 500 /ul High Negative [facility] Urine pHOrdered By: Fernando Faust on 01-14-2025 pH (U) 7.0 [pH] 5.0 - 8.0 [facility] Urine specific gravity measu rementOrdered By: Yesika Faust on 01-14-2025 Specific gravity (U) [Rel density] 1.010 1.002-1.03 0 [facility] Urine urobilinogen measureme ntOrdered By: Yesika Faust on 01-14-2025 Urobilinogen Ql (U) Normal mg/dl Normal [facility] Absolute lymphocyte countOrd ered By: Yesika Faust on 01-12-2025 Lymphocytes Auto (Unsp spec) [#/Vol] 1.66 10*3/uL 0.83-4.51 [facility] Absolute neutrophil countOrd ered By: Yesika Faust on 01-12-2025 Neutrophils (Bld) [#/Vol] 3.2 10*3/uL 2.0-7.7 [facility] Anion gap in Serum or Plasma Ordered By: Yesika Faust on 01-12-2025 Anion gap [Moles/Vol] 13 mmol/L 5-15 [facility] Automated lymphocyte count a s percentage of total leukocytesOrdered By: Yesika Faust on 01-12-2025 Lymphocytes/100 WBC Auto (Unsp spec) 27.6 % 19- [facility] BUN/creatinine ratioOrdered By: Yesika Faust on 01-12-2025 Urea nitrogen/Creatinine [Mass ratio] 36.9 mg/mg High 10-20 [facility] Basophil percentageOrdered B y: Yesika Faust on 01-12-2025 Basophils/100 WBC (Bld) 0.8 % 0-1 [facility] Bilirubin directOrdered By: Yesika Faust on 01-12-2025 Bilirubin.direct [Mass/Vol] 0.11 mg/dL 0.00-0.30 [facility] Bilirubin, totalOrdered By: Yesika Faust on 01-12-2025 Bilirubin [Mass/Vol] 0.24 mg/dL 0.00-1.30 [facility] Carbon dioxide, total [Moles /volume] in Central venous bloodOrdered By: Yesika Faust on 01-12-2025 CO2 [Moles/Vol] 22.3 mmol/L 21.0-32.0 [facility] Chloride assayOrdered By: Tad Faust on 01-12-2025 Chloride [Moles/Vol] 106 mmol/L 98-108 [facility] Eosinophil percentageOrdered By: Yesika Faust on 01-12-2025 Eosinophils/100 WBC (Bld) 7.2 % High 0-5 [facility] Erythrocyte distribution wid th ratioOrdered By: Yesika Faust on 01-12-2025 Erythrocyte distribution width (RBC) [Ratio] 13.5 % 11.6-14.6 [facility] Erythrocyte distribution wid th standard deviationOrdered By: Yesika Faust on 01-12-2025 Erythrocyte distribution width (RBC) [Ratio] 47.9 fl High 35.1-43.9 [facility] Glomerular filtration rate ( GFR) estimation/1.73 sq m using serum, plasma, or whole bOrdered By: Yesika Faust on 01-12-2025 GFR/1.73 sq M.predicted among non-blacks MDRD (S/P/Bld) [Vol rate/Area] 84 mL/min/{1.73_m2} >60 [facility] Comment on above: mL/min/1.73m2 CKD-EP I Creatinine Equation (2020) Hematocrit Auto (Bld) [Volum e fraction]Ordered By: Yesika Faust on 01-12-2025 Hematocrit (Bld) [Volume fraction] 40.4 % 37-47 [facility] Hemoglobin measurementOrdere d By: Yesika Faust on 01-12-2025 Hemoglobin (Bld) [Mass/Vol] 13.3 g/dL 12.0-15.0 [facility] Immature granulocytes/100 WB C Auto (Bld)Ordered By: Yesika Faust on 01-12-2025 Immature granulocytes/100 WBC (Bld) 0.300 % 0.0-0.9 [facility] Comment on above: IG% - Immature Granu locytes (promyelocytes, myelocytes and metamyelocytes) > 1% indicates that a LEFT SHIFT is Present. Laboratory - Chemistry and C hemistry - challengeOrdered By: Yesika Faust on 01-12-2025 AST [Catalytic activity/Vol] 16 U/L <32 [facility] MCV (mean corpuscular volume ) determinationOrdered By: Yesika Faust on 01-12-2025 MCV (RBC) [Entitic vol] 97.1 fL 81-99 [facility] Mean corpuscular hemoglobin (MCH) determinationOrdered By: Yesika Faust on 01-12-2025 MCH (RBC) [Entitic mass] 32.0 pg 27.0-32.0 [facility] Mean corpuscular hemoglobin concentration (MCHC) determinationOrdered By: Yesika Faust on 01-12-2025 MCHC (RBC) [Mass/Vol] 32.9 g/dL 32-36 [facility] Mean platelet volume determi nationOrdered By: Yesika Faust on 01-12-2025 Platelet mean volume (Bld) [Entitic vol] 10.7 fL 6.2-12.0 [facility] Monocyte percentageOrdered B y: Yesika Faust on 01-12-2025 Monocytes/100 WBC (Bld) 10.8 % High 0-10 [facility] Neutrophil percentageOrdered By: Yesika Faust on 01-12-2025 Neutrophils/100 WBC (Bld) 53.3 % 47-70 [facility] Nucleated red blood cell per centageOrdered By: Yesika Faust on 01-12-2025 Nucleated RBC/100 WBC (Bld) [Ratio] 0 % 0-5 [facility] Platelet countOrdered By: Tad Faust on 01-12-2025 Platelets (Bld) [#/Vol] 233 10*3/uL 150-450 [facility] Potassium measurement (mass/ volume)Ordered By: Yesika Faust on 01-12-2025 Potassium (Unsp spec) [Mass/Vol] 4.4 mmol/L 3.3-5.1 [facility] RBC Auto (Bld) [#/Vol]Ordere d By: Yesika Faust on 01-12-2025 RBC (Bld) [#/Vol] 4.16 10*6/uL Low 4.2-5.4 [facility] Serum creatinine measurement (mass/volume)Ordered By: Yesika Faust on 01-12-2025 Creatinine [Mass/Vol] 0.71 mg/dL 0.70-1.20 [facility] Serum globulin measurementOr dered By: Yesika Faust on 01-12-2025 Globulin (S) [Mass/Vol] 2.2 g/dL 2.2-4.2 [facility] Serum glucose measurement (m ass/volume)Ordered By: Yesika Faust on 01-12-2025 Glucose [Mass/Vol] 95 mg/dL 70-99 [facility] Serum or plasma alanine vela otransferase (ALT) measurementOrdered By: Yesika Faust on 01-12-2025 ALT [Catalytic activity/Vol] 12 U/L <35 [facility] Serum or plasma albumin madi urement (mass/volume)Ordered By: Yesika Faust on 01-12-2025 Albumin [Mass/Vol] 3.5 g/dL 3.4-4.8 [facility] Serum or plasma alkaline mariaelena sphatase measurementOrdered By: Yesika Faust on 01-12-2025 ALP [Catalytic activity/Vol] 110 U/L High 35-104 [facility] Serum or plasma calcium madi urement (mass/volume)Ordered By: Yesika Faust on 01-12-2025 Calcium [Mass/Vol] 9.0 mg/dL 7.6-11.0 [facility] Serum or plasma urea nitroge n measurement (mass/volume)Ordered By: Yesika Faust on 01-12-2025 Urea nitrogen [Mass/Vol] 26 mg/dL High 4-19 [facility] Sodium levelOrdered By: Jed Faust on 01-12-2025 Sodium [Moles/Vol] 142 mmol/L 133-145 [facility] Total proteinOrdered By: Randall Faust on 01-12-2025 Protein [Mass/Vol] 5.7 g/dL Low 5.9-8.4 [facility] White blood cell (WBC) count Ordered By: Yesika Faust on 01-12-2025 WBC (Bld) [#/Vol] 6.0 10*3/uL 4.4-11.0 [facility] Absolute lymphocyte countOrd ered By: Yesika Faust on 12-14-2024 Lymphocytes Auto (Unsp spec) [#/Vol] 2.70 10*3/uL 0.83-4.51 [facility] Absolute neutrophil countOrd ered By: Yesika Faust on 12-14-2024 Neutrophils (Bld) [#/Vol] 4.2 10*3/uL 2.0-7.7 [facility] Anion gap in Serum or Plasma Ordered By: Yesika Faust on 12-14-2024 Anion gap [Moles/Vol] 12 mmol/L 5-15 [facility] Automated lymphocyte count a s percentage of total leukocytesOrdered By: Yesika Faust on 12-14-2024 Lymphocytes/100 WBC Auto (Unsp spec) 33.0 % 19-41 [facility] BUN/creatinine ratioOrdered By: Yesika Faust on 12-14-2024 Urea nitrogen/Creatinine [Mass ratio] 30.0 mg/mg High 10-20 [facility] Basophil percentageOrdered B y: Yesika Faust on 12-14-2024 Basophils/100 WBC (Bld) 1.0 % 0-1 [facility] Carbon dioxide, total [Moles /volume] in Central venous bloodOrdered By: Yesika Faust on 12-14-2024 CO2 [Moles/Vol] 25.1 mmol/L 21.0-32.0 [facility] Chloride assayOrdered By: Tad Faust on 12-14-2024 Chloride [Moles/Vol] 103 mmol/L 98-108 [facility] Eosinophil percentageOrdered By: Yesika Faust on 12-14-2024 Eosinophils/100 WBC (Bld) 4.4 % 0-5 [facility] Erythrocyte distribution wid th (RBC) [Ratio]Ordered By: Yesika Faust on 12-14-2024 Erythrocyte distribution width (RBC) [Entitic vol] 45.8 fL High 35.1-43.9 [facility] Erythrocyte distribution wid th ratioOrdered By: Yesika Faust on 12-14-2024 Erythrocyte distribution width (RBC) [Ratio] 13.2 % 11.6-14.6 [facility] Erythrocyte distribution wid th standard deviationOrdered By: Yesika Faust on 12-14-2024 Erythrocyte distribution width (RBC) [Ratio] 45.8 fl High 35.1-43.9 [facility] GFR/1.73 sq M.predicted giorgio g non-blacks MDRD (S/P/Bld) [Vol rate/Area]Ordered By: Yesika Faust on 12-14-2024 Estimated GFR (MDRD) Non-Af Amer 76 >60 [facility] Comment on above: mL/min/1.73m2 CKD-EP I Creatinine Equation (2020) Glomerular filtration rate ( GFR) estimation/1.73 sq m using serum, plasma, or whole bOrdered By: Yesika Faust on 12-14-2024 GFR/1.73 sq M.predicted among non-blacks MDRD (S/P/Bld) [Vol rate/Area] 76 mL/min/{1.73_m2} >60 [facility] Comment on above: mL/min/1.73m2 CKD-EP I Creatinine Equation (2020) Hematocrit Auto (Bld) [Volum e fraction]Ordered By: Yesika Faust on 12-14-2024 Hematocrit (Bld) [Volume fraction] 46.6 % 37-47 [facility] Hemoglobin measurementOrdere d By: Yesika Faust on 12-14-2024 Hemoglobin (Bld) [Mass/Vol] 15.2 g/dL High 12.0-15.0 [facility] Immature granulocytes/100 WB C Auto (Bld)Ordered By: Yesika Faust on 12-14-2024 Immature granulocytes/100 WBC (Bld) 0.500 % 0.0-0.9 [facility] Comment on above: IG% - Immature Granu locytes (promyelocytes, myelocytes and metamyelocytes) > 1% indicates that a LEFT SHIFT is Present. Lymphocytes Auto (Unsp spec) [#/Vol]Ordered By: [facility] on 12-14-2024 Lymphocytes (Bld) [#/Vol] 2.70 10*3/uL 0.83-4.51 [facility] Lymphocytes/100 WBC Auto (Un sp spec)Ordered By: enriquetaclevelandmacarena Faust on 12-14-2024 Lymphocytes/100 WBC (Bld) 33.0 % 19-41 [facility] MCV (mean corpuscular volume ) determinationOrdered By: ky Faust on 12-14-2024 MCV (RBC) [Entitic vol] 94.7 fL 81-99 [facility] Mean corpuscular hemoglobin (MCH) determinationOrdered By: [facility] on 12-14-2024 MCH (RBC) [Entitic mass] 30.9 pg 27.0-32.0 [facility] Mean corpuscular hemoglobin concentration (MCHC) determinationOrdered By: [facility] on 12-14-2024 MCHC (RBC) [Mass/Vol] 32.6 g/dL 32-36 [facility] Mean platelet volume determi nationOrdered By: [facility] on 12-14-2024 Platelet mean volume (Bld) [Entitic vol] 10.6 fL 6.2-12.0 [facility] Monocyte percentageOrdered B y: Yesika Faust on 12-14-2024 Monocytes/100 WBC (Bld) 9.7 % 0-10 [facility] Neutrophil percentageOrdered By: enriquetaclevelandmacarena Faust on 12-14-2024 Neutrophils/100 WBC (Bld) 51.4 % 47-70 [facility] Nucleated red blood cell per centageOrdered By: Yesika Faust on 12-14-2024 Nucleated RBC/100 WBC (Bld) [Ratio] 0 % 0-5 [facility] Platelet countOrdered By: Tad Faust on 12-14-2024 Platelets (Bld) [#/Vol] 268 10*3/uL 150-450 [facility] Potassium (Unsp spec) [Mass/ Vol]Ordered By: Yesika Faust on 12-14-2024 Potassium [Moles/Vol] 4.3 mmol/L 3.3-5.1 [facility] Potassium measurement (mass/ volume)Ordered By: Yesika Faust on 12-14-2024 Potassium (Unsp spec) [Mass/Vol] 4.3 mmol/L 3.3-5.1 [facility] RBC Auto (Bld) [#/Vol]Ordere d By: Yesika Faust on 12-14-2024 RBC (Bld) [#/Vol] 4.92 10*6/uL 4.2-5.4 [facility] Serum creatinine measurement (mass/volume)Ordered By: Yesika Faust on 12-14-2024 Creatinine [Mass/Vol] 0.76 mg/dL 0.70-1.20 [facility] Serum glucose measurement (m ass/volume)Ordered By: Yesika Faust on 12-14-2024 Glucose [Mass/Vol] 105 mg/dL High 70-99 [facility] Serum or plasma calcium madi urement (mass/volume)Ordered By: Yesika Faust on 12-14-2024 Calcium [Mass/Vol] 9.7 mg/dL 7.6-11.0 [facility] Serum or plasma urea nitroge n measurement (mass/volume)Ordered By: Yesika Faust on 12-14-2024 Urea nitrogen [Mass/Vol] 23 mg/dL High 4-19 [facility] Sodium levelOrdered By: Jed Faust on 12-14-2024 Sodium [Moles/Vol] 141 mmol/L 133-145 [facility] White blood cell (WBC) count Ordered By: Yesika Faust on 12-14-2024 WBC (Bld) [#/Vol] 8.2 10*3/uL 4.4-11.0 [facility] Absolute lymphocyte countOrd ered By: Jedclevelandmacarena Faust on 11-14-2024 Lymphocytes Auto (Unsp spec) [#/Vol] 2.15 10*3/uL 0.83-4.51 [facility] Absolute neutrophil countOrd ered By: Yesika Faust on 11-14-2024 Neutrophils (Bld) [#/Vol] 4.8 10*3/uL 2.0-7.7 [facility] Automated lymphocyte count a s percentage of total leukocytesOrdered By: Yesika Faust on 11-14-2024 Lymphocytes/100 WBC Auto (Unsp spec) 25.7 % 19-41 [facility] BUN/creatinine ratioOrdered By: Yesika Faust on 11-14-2024 Urea nitrogen/Creatinine [Mass ratio] 36.8 mg/mg High 10-20 [facility] Basophil percentageOrdered B y: Yesika Faust on 11-14-2024 Basophils/100 WBC (Bld) 1.0 % 0-1 [facility] Carbon dioxide measurementOr dered By: Yesika Faust on 11-14-2024 CO2 [Moles/Vol] 27.6 mmol/L 22.0-29.0 [facility] Chloride measurementOrdered By: enriquetaclevelandmacarena Faust on 11-14-2024 Chloride [Moles/Vol] 101 mmol/L 96-108 [facility] Eosinophil percentageOrdered By: ky Faust on 11-14-2024 Eosinophils/100 WBC (Bld) 7.9 % High 0-5 [facility] Erythrocyte distribution wid th (RBC) [Ratio]Ordered By: Yesika Faust on 11-14-2024 Erythrocyte distribution width (RBC) [Entitic vol] 46.1 fL High 35.1-43.9 [facility] Erythrocyte distribution wid th ratioOrdered By: enriquetaclevelandmacarena Faust on 11-14-2024 Erythrocyte distribution width (RBC) [Ratio] 12.9 % 11.6-14.6 [facility] Erythrocyte distribution wid th standard deviationOrdered By: Yesika Faust on 11-14-2024 Erythrocyte distribution width (RBC) [Ratio] 46.1 fl High 35.1-43.9 [facility] GFR/1.73 sq M.predicted giorgio g non-blacks MDRD (S/P/Bld) [Vol rate/Area]Ordered By: Yesika Faust on 11-14-2024 Estimated GFR (MDRD) Non-Af Amer 86 >60 [facility] Comment on above: mL/min/1.73m2 CKD-EP I Creatinine Equation (2020) Glomerular filtration rate ( GFR) estimation/1.73 sq m using serum, plasma, or whole bOrdered By: Yesika Faust on 11-14-2024 GFR/1.73 sq M.predicted among non-blacks MDRD (S/P/Bld) [Vol rate/Area] 86 mL/min/{1.73_m2} >60 [facility] Comment on above: mL/min/1.73m2 CKD-EP I Creatinine Equation (2020) Hematocrit Auto (Bld) [Volum e fraction]Ordered By: Yesika Faust on 11-14-2024 Hematocrit (Bld) [Volume fraction] 46.9 % 37-47 [facility] Hemoglobin measurementOrdere d By: Yesika Faust on 11-14-2024 Hemoglobin (Bld) [Mass/Vol] 15.0 g/dL 12.0-15.0 [facility] Immature granulocytes/100 WB C Auto (Bld)Ordered By: Yesika Faust on 11-14-2024 Immature granulocytes/100 WBC (Bld) 0.500 % 0.0-0.9 [facility] Comment on above: IG% - Immature Granu locytes (promyelocytes, myelocytes and metamyelocytes) > 1% indicates that a LEFT SHIFT is Present. Lymphocytes Auto (Unsp spec) [#/Vol]Ordered By: ky Faust on 11-14-2024 Lymphocytes (Bld) [#/Vol] 2.15 10*3/uL 0.83-4.51 [facility] Lymphocytes/100 WBC Auto (Un sp spec)Ordered By: Yesika Faust on 11-14-2024 Lymphocytes/100 WBC (Bld) 25.7 % 19-41 [facility] MCV (mean corpuscular volume ) determinationOrdered By: Yesika Faust on 11-14-2024 MCV (RBC) [Entitic vol] 96.9 fL 81-99 [facility] Mean corpuscular hemoglobin (MCH) determinationOrdered By: Yesika Faust on 11-14-2024 MCH (RBC) [Entitic mass] 31.0 pg 27.0-32.0 [facility] Mean corpuscular hemoglobin concentration (MCHC) determinationOrdered By: Yesika Faust on 11-14-2024 MCHC (RBC) [Mass/Vol] 32.0 g/dL 32-36 [facility] Mean platelet volume determi nationOrdered By: Yesika Faust on 11-14-2024 Platelet mean volume (Bld) [Entitic vol] 10.4 fL 6.2-12.0 [facility] [facility] Monocyte percentageOrdered B y: Yesika Faust on 11-14-2024 Monocytes/100 WBC (Bld) 7.9 % 0-10 [facility] Neutrophil percentageOrdered By: ky Faust on 11-14-2024 Neutrophils/100 WBC (Bld) 57.0 % 47-70 [facility] Nucleated red blood cell per centageOrdered By: Yesika Faust on 11-14-2024 Nucleated RBC/100 WBC (Bld) [Ratio] 0 % 0-5 [facility] Platelet countOrdered By: Tad Faust on 11-14-2024 Platelets (Bld) [#/Vol] 269 10*3/uL 150-450 [facility] RBC Auto (Bld) [#/Vol]Ordere d By: Yesika Faust on 11-14-2024 RBC (Bld) [#/Vol] 4.84 10*6/uL 4.2-5.4 [facility] Serum creatinine measurement (mass/volume)Ordered By: Yesika Faust on 11-14-2024 Creatinine [Mass/Vol] 0.65 mg/dL Low 0.70-1.20 [facility] Serum glucose measurement (m ass/volume)Ordered By: Yesika Faust on 11-14-2024 Glucose [Mass/Vol] 97 mg/dL 70-99 [facility] Serum or plasma anion gap de termination (moles/volume)Ordered By: Yesika Faust on 11-14-2024 Anion gap [Moles/Vol] 12 mmol/L 5-15 [facility] Serum or plasma calcium madi urement (mass/volume)Ordered By: Yesika Faust on 11-14-2024 Calcium [Mass/Vol] 9.4 mg/dL 7.6-11.0 [facility] Serum or plasma potassium me asurementOrdered By: Yesika Faust on 11-14-2024 Potassium [Moles/Vol] 4.3 mmol/L 3.3-5.1 [facility] Comment on above: Hemolysis present, R esults could be affected. Serum or plasma sodium measu rement (moles/volume)Ordered By: Yesika Faust on 11-14-2024 Sodium [Moles/Vol] 141 mmol/L 133-145 [facility] Serum or plasma urea nitroge n measurement (mass/volume)Ordered By: Yesika Faust on 11-14-2024 Urea nitrogen [Mass/Vol] 24 mg/dL High 4-19 [facility] White blood cell (WBC) count Ordered By: Yesika Faust on 11-14-2024 WBC (Bld) [#/Vol] 8.4 10*3/uL 4.4-11.0 [facility] Absolute lymphocyte countOrd ered By: Yesika Faust on 10-17-2024 Lymphocytes Auto (Unsp spec) [#/Vol] 1.81 10*3/uL 0.83-4.51 [facility] Absolute neutrophil countOrd ered By: Yesika Faust on 10-17-2024 Neutrophils (Bld) [#/Vol] 3.3 10*3/uL 2.0-7.7 [facility] Automated lymphocyte count a s percentage of total leukocytesOrdered By: Yesika Faust on 10-17-2024 Lymphocytes/100 WBC Auto (Unsp spec) 26.5 % 19-41 [facility] Basophil percentageOrdered B y: Yesika Faust on 10-17-2024 Basophils/100 WBC (Bld) 0.7 % 0-1 [facility] Bilirubin directOrdered By: Yesika Faust on 10-17-2024 Bilirubin.direct [Mass/Vol] 0.09 mg/dL 0.00-0.30 [facility] Bilirubin, totalOrdered By: Yesika Faust on 10-17-2024 Bilirubin [Mass/Vol] 0.20 mg/dL 0.20-1.00 [facility] Comment on above: For patients on eltr ombopag therapy, use of Dimension [place] TBIL is not recommended. Blood urea nitrogen (BUN)/cr eatinine ratioOrdered By: Yesika Faust on 10-17-2024 Urea nitrogen/Creatinine [Mass ratio] 49.3 mg/mg High 10-20 [facility] Carbon dioxide measurementOr dered By: Yesika Faust on 10-17-2024 CO2 [Moles/Vol] 29.0 mmol/L 21.0-32.0 [facility] Chloride measurementOrdered By: Yesika Faust on 10-17-2024 Chloride [Moles/Vol] 106 mmol/L 98-107 [facility] Eosinophil percentageOrdered By: Yesika Faust on 10-17-2024 Eosinophils/100 WBC (Bld) 14.6 % High 0-5 [facility] Erythrocyte distribution wid th (RBC) [Ratio]Ordered By: Yesika Faust on 10-17-2024 Erythrocyte distribution width (RBC) [Entitic vol] 46.3 fL High 35.1-43.9 [facility] Erythrocyte distribution wid th ratioOrdered By: Yesika Faust on 10-17-2024 Erythrocyte distribution width (RBC) [Ratio] 13.0 % 11.6-14.6 [facility] Erythrocyte distribution wid th standard deviationOrdered By: Yesika Faust on 10-17-2024 Erythrocyte distribution width (RBC) [Ratio] 46.3 fl High 35.1-43.9 [facility] Estimated glomerular filtrat ion rate (GFR) AmericanOrdered By: Yesika Faust on 10-17-2024 Estimated GFR (MDRD) Amer 120 mL/min >60 [facility] Comment on above: GFR Calc Glomerular filtration rate ( GFR) estimationOrdered By: Yesika Faust on 10-17-2024 Estimated GFR (MDRD) Non-Af Amer 99 mL/min >60 [facility] Comment on above: Non- GFR Calc GFR/1.73 sq M.predicted among non-blacks MDRD (S/P/Bld) [Vol rate/Area] 99 mL/min/{1.73_m2} >60 [facility] Comment on above: Non- GFR Calc Glucose measurementOrdered B y: Yesika Faust on 10-17-2024 Glucose [Mass/Vol] 86 mg/dL 74-106 [facility] Hematocrit Auto (Bld) [Volum e fraction]Ordered By: Yesika Faust on 10-17-2024 Hematocrit (Bld) [Volume fraction] 41.4 % 37-47 [facility] Hemoglobin measurementOrdere d By: Yesika Faust on 10-17-2024 Hemoglobin (Bld) [Mass/Vol] 13.5 g/dL 12.0-15.0 [facility] Immature granulocytes/100 WB C Auto (Bld)Ordered By: Yesika Faust on 10-17-2024 Immature granulocytes/100 WBC (Bld) 0.400 % 0.0-0.9 [facility] Comment on above: IG% - Immature Granu locytes (promyelocytes, myelocytes and metamyelocytes) > 1% indicates that a LEFT SHIFT is Present. Laboratory - Chemistry and C hemistry - challengeOrdered By: Yesika Faust on 10-17-2024 AST [Catalytic activity/Vol] 12 U/L Low 15-37 [facility] Lymphocytes Auto (Unsp spec) [#/Vol]Ordered By: Yesika Faust on 10-17-2024 Lymphocytes (Bld) [#/Vol] 1.81 10*3/uL 0.83-4.51 [facility] Lymphocytes/100 WBC Auto (Un sp spec)Ordered By: Yesika Faust on 10-17-2024 Lymphocytes/100 WBC (Bld) 26.5 % 19-41 [facility] MCV (mean corpuscular volume ) determinationOrdered By: Yesika Faust on 10-17-2024 MCV (RBC) [Entitic vol] 98.6 fL 81-99 [facility] Mean corpuscular hemoglobin (MCH) determinationOrdered By: Yesika Faust on 10-17-2024 MCH (RBC) [Entitic mass] 32.1 pg High 27.0-32.0 [facility] Mean corpuscular hemoglobin concentration (MCHC) determinationOrdered By: Yesika Faust on 10-17-2024 MCHC (RBC) [Mass/Vol] 32.6 g/dL 32-36 [facility] Mean platelet volume determi nationOrdered By: Yesika Faust on 10-17-2024 Platelet mean volume (Bld) [Entitic vol] 10.6 fL 6.2-12.0 [facility] Monocyte percentageOrdered B y: Yesika Faust on 10-17-2024 Monocytes/100 WBC (Bld) 9.5 % 0-10 [facility] Neutrophil percentageOrdered By: Yesika Faust on 10-17-2024 Neutrophils/100 WBC (Bld) 48.3 % 47-70 [facility] Nucleated red blood cell per centageOrdered By: Yesika Faust on 10-17-2024 Nucleated RBC/100 WBC (Bld) [Ratio] 0 % 0-5 [facility] Platelet countOrdered By: Tad Faust on 10-17-2024 Platelets (Bld) [#/Vol] 232 10*3/uL 150-450 [facility] Potassium measurementOrdered By: Yesika Faust on 10-17-2024 Potassium [Moles/Vol] 4.0 mmol/L 3.5-5.1 [facility] RBC Auto (Bld) [#/Vol]Ordere d By: Yesika Faust on 10-17-2024 RBC (Bld) [#/Vol] 4.20 10*6/uL 4.2-5.4 [facility] Serum anion gap measurementO rdered By: Yesika Faust on 10-17-2024 Anion gap [Moles/Vol] 5 mmol/L 5-15 [facility] Serum globulin measurementOr dered By: Yesika Faust on 10-17-2024 Globulin (S) [Mass/Vol] 3.2 g/dL 2.2-4.2 [facility] Serum or plasma alanine vela otransferase (ALT) measurementOrdered By: Yesika Faust on 10-17-2024 ALT [Catalytic activity/Vol] 19 U/L 13-56 [facility] Serum or plasma albumin madi urement (mass/volume)Ordered By: Yesika Faust on 10-17-2024 Albumin [Mass/Vol] 3.1 g/dL Low 3.2-5.0 [facility] Serum or plasma alkaline mariaelena sphatase measurementOrdered By: Yesika Faust on 10-17-2024 ALP [Catalytic activity/Vol] 108 U/L 45-117 [facility] Serum or plasma calcium madi urement (mass/volume)Ordered By: Yesika Faust on 10-17-2024 Calcium [Mass/Vol] 9.1 mg/dL 8.5-10.1 [facility] Serum or plasma creatinine m easurement (mass/volume)Ordered By: Yesika Faust on 10-17-2024 Creatinine [Mass/Vol] 0.61 mg/dL 0.55-1.02 [facility] Comment on above: The validity of the calculated GFR & GFRAA in patients over 70 years has not been determined. Clinical correlation is essential. Serum or plasma urea nitroge n measurement (mass/volume)Ordered By: Yesika Faust on 10-17-2024 Urea nitrogen [Mass/Vol] 30 mg/dL High 7-18 [facility] Sodium levelOrdered By: Jed Faust on 10-17-2024 Sodium [Moles/Vol] 140 mmol/L 136-145 [facility] Total proteinOrdered By: Randall montsemacarena Faust on 10-17-2024 Protein [Mass/Vol] 6.3 g/dL Low 6.4-8.2 [facility] White blood cell (WBC) count Ordered By: Yesika Faust on 10-17-2024 WBC (Bld) [#/Vol] 6.8 10*3/uL 4.4-11.0 [facility] Bilirubin Test strip Ql (U)O rdered By: Yesika Faust on 10-14-2024 Bilirubin Ql (U) Negative Negative [facility] Epithelial cells.squamous LM Ql (Urine sed)Ordered By: Yesika Faust on 10-14-2024 Epithelial cells.squamous LM.HPF (Urine sed) [#/Area] 0 /[HPF] 5-10 [facility] Glucose Ql (U)Ordered By: Tad Faust on 10-14-2024 Urine Glucose (UA) Normal mg/dl Normal [facility] Ketones Test strip Ql (U)Ord ered By: Yesika Faust on 10-14-2024 Ketones Ql (U) Negative Negative [facility] Microscopic analysis of urin e for red blood cells (RBC)Ordered By: Yesika Faust on 10-14-2024 Microscopic analysis of urine for red blood cells (RBC) 0 SEEN /hpf 0-5 [facility] Urine RBC 0 SEEN /hpf 0-5 [facility] Mucus LM Ql (Urine sed)Order ed By: Yesika Faust on 10-14-2024 Mucus Ql (Urine sed) 0 SEEN /hpf [facility] Nitrite Test strip Ql (U)Ord ered By: Yesika Faust on 10-14-2024 Nitrite Ql (U) Positive High Negative [facility] Protein Test strip Ql (U)Ord ered By: Yesika Faust on 10-14-2024 Protein Ql (U) 15 mg/dl High Negative [facility] Squamous epithelial cells de tection in urine sediment by light microscopyOrdered By: Yesika Faust on 10-14-2024 Epithelial cells.squamous LM Ql (Urine sed) 0 SEEN /hpf 5-10 [facility] Triple phosphate crystals LM Ql (Urine sed)Ordered By: Yesika Faust on 10-14-2024 Urine Triple Phosphate Crystals 1+ /hpf [facility] Triple phosphate crystals de tection in urine sediment by light microscopyOrdered By: Yesika Faust on 10-14-2024 Triple phosphate crystals LM Ql (Urine sed) 1+ /hpf [facility] Urine blood detectionOrdered By: Yesika Faust on 10-14-2024 Urine Occult Blood Negative Negative [facility] Urine clarityOrdered By: Randall Faust on 10-14-2024 Clarity (U) Sl. Cloudy Clear [facility] Urine color determinationOrd ered By: Yesika Faust on 10-14-2024 Color (U) Yellow Yellow [facility] Urine cultureOrdered By: Randall Faust on 10-14-2024 Bacteria identified Cx Nom (U) Proteus mirabilis Abnormal [facility] Urine glucose detectionOrder ed By: Yesika Faust on 10-14-2024 Glucose Ql (U) Normal mg/dl Normal [facility] Urine leukocyte esterase det ection by dipstickOrdered By: Yesika Faust on 10-14-2024 Leukocyte esterase Test strip Ql (U) 25 /ul High Negative [facility] Urine pHOrdered By: Fernando aFust on 10-14-2024 pH (U) 9.0 [pH] 5.0 - 8.0 [facility] Urine sediment bacteria coun t by microscopy (number/high power field)Ordered By: Yesika Faust on 10-14-2024 Bacteria LM.HPF (Urine sed) [#/Area] 1 /[HPF] None Seen [facility] Urine specific gravity measu rementOrdered By: Yesika Faust on 10-14-2024 Specific gravity (U) [Rel density] 1.015 1.002-1.03 0 [facility] Urine urobilinogen measureme ntOrdered By: Yesika Faust on 10-14-2024 Urobilinogen Ql (U) Normal mg/dl Normal [facility] Urobilinogen Ql (U)Ordered B y: Jedsaeidmacarena Faust on 10-14-2024 Urine Urobilinogen Normal mg/dl Normal [facility] White blood cell countOrdere d By: Yesika Faust on 10-14-2024 Urine WBC 0 SEEN /hpf 0-5 [facility] White blood cell count 0 SEEN /hpf 0-5 [facility] Absolute neutrophil countOrd ered By: Yesika Faust on 09-16-2024 Neutrophils (Bld) [#/Vol] 4.4 10*3/uL 2.0-7.7 [facility] Basophil percentageOrdered B y: Yesika Faust on 09-16-2024 Basophils/100 WBC (Bld) 0.7 % 0-1 [facility] Blood urea nitrogen (BUN)/cr eatinine ratioOrdered By: Yesika Faust on 09-16-2024 Urea nitrogen/Creatinine [Mass ratio] 40.5 mg/mg High 10-20 [facility] Carbon dioxide measurementOr dered By: Yesika Faust on 09-16-2024 CO2 [Moles/Vol] 28.0 mmol/L 21.0-32.0 [facility] Chloride measurementOrdered By: Yesika Faust on 09-16-2024 Chloride [Moles/Vol] 106 mmol/L 98-107 [facility] Eosinophil percentageOrdered By: Yesika Faust on 09-16-2024 Eosinophils/100 WBC (Bld) 3.0 % 0-5 [facility] Erythrocyte distribution wid th (RBC) [Ratio]Ordered By: Yesika Faust on 09-16-2024 Erythrocyte distribution width (RBC) [Entitic vol] 48.3 fL High 35.1-43.9 [facility] Erythrocyte distribution wid th ratioOrdered By: Yesika Faust on 09-16-2024 Erythrocyte distribution width (RBC) [Ratio] 13.2 % 11.6-14.6 [facility] Estimated glomerular filtrat ion rate (GFR) AmericanOrdered By: Yesika Faust on 09-16-2024 Estimated GFR (MDRD) Amer 162 mL/min >60 [facility] Comment on above: GFR Calc Glomerular filtration rate ( GFR) estimationOrdered By: Yesika Faust on 09-16-2024 Estimated GFR (MDRD) Non-Af Amer 134 mL/min >60 [facility] Comment on above: Non- GFR Calc Glucose measurementOrdered B y: Yesika Faust on 09-16-2024 Glucose [Mass/Vol] 89 mg/dL 74-106 [facility] Hematocrit Auto (Bld) [Volum e fraction]Ordered By: Yesika Faust on 09-16-2024 Hematocrit (Bld) [Volume fraction] 38.9 % 37-47 [facility] Hemoglobin measurementOrdere d By: Yesika Faust on 09-16-2024 Hemoglobin (Bld) [Mass/Vol] 12.4 g/dL 12.0-15.0 [facility] Immature granulocytes/100 WB C Auto (Bld)Ordered By: Yesika Faust on 09-16-2024 Immature granulocytes/100 WBC (Bld) 0.300 % 0.0-0.9 [facility] Comment on above: IG% - Immature Granu locytes (promyelocytes, myelocytes and metamyelocytes) > 1% indicates that a LEFT SHIFT is Present. Lymphocytes Auto (Unsp spec) [#/Vol]Ordered By: Yesika Faust on 09-16-2024 Lymphocytes (Bld) [#/Vol] 1.59 10*3/uL 0.83-4.51 [facility] Lymphocytes/100 WBC Auto (Un sp spec)Ordered By: Yesika Faust on 09-16-2024 Lymphocytes/100 WBC (Bld) 23.1 % 19-41 [facility] MCV (mean corpuscular volume ) determinationOrdered By: Yesika Faust on 09-16-2024 MCV (RBC) [Entitic vol] 98.7 fL 81-99 [facility] Mean corpuscular hemoglobin (MCH) determinationOrdered By: Yesika Faust on 09-16-2024 MCH (RBC) [Entitic mass] 31.5 pg 27.0-32.0 [facility] Mean corpuscular hemoglobin concentration (MCHC) determinationOrdered By: Yesika Faust on 09-16-2024 MCHC (RBC) [Mass/Vol] 31.9 g/dL Low 32-36 [facility] Mean platelet volume determi nationOrdered By: Yesika Faust on 09-16-2024 Platelet mean volume (Bld) [Entitic vol] 10.6 fL 6.2-12.0 [facility] Monocyte percentageOrdered B y: Yesika Faust on 09-16-2024 Monocytes/100 WBC (Bld) 9.6 % 0-10 [facility] Neutrophil percentageOrdered By: Yesika Faust on 09-16-2024 Neutrophils/100 WBC (Bld) 63.3 % 47-70 [facility] Nucleated red blood cell per centageOrdered By: Yesika Faust on 09-16-2024 Nucleated RBC/100 WBC (Bld) [Ratio] 0 % 0-5 [facility] Platelet countOrdered By: Tad Faust on 09-16-2024 Platelets (Bld) [#/Vol] 241 10*3/uL 150-450 [facility] Potassium measurementOrdered By: Yesika Faust on 09-16-2024 Potassium [Moles/Vol] 3.8 mmol/L 3.5-5.1 [facility] RBC Auto (Bld) [#/Vol]Ordere d By: Yesika Faust on 09-16-2024 RBC (Bld) [#/Vol] 3.94 10*6/uL Low 4.2-5.4 [facility] Serum anion gap measurementO rdered By: Yesika Faust on 09-16-2024 Anion gap [Moles/Vol] 5 mmol/L 5-15 [facility] Serum or plasma calcium madi urement (mass/volume)Ordered By: Yesika Faust on 09-16-2024 Calcium [Mass/Vol] 8.8 mg/dL 8.5-10.1 [facility] Serum or plasma creatinine m easurement (mass/volume)Ordered By: Yesika Faust on 09-16-2024 Creatinine [Mass/Vol] 0.47 mg/dL Low 0.55-1.02 [facility] Comment on above: The validity of the calculated GFR & GFRAA in patients over 70 years has not been determined. Clinical correlation is essential. Serum or plasma urea nitroge n measurement (mass/volume)Ordered By: Yesika Faust on 09-16-2024 Urea nitrogen [Mass/Vol] 19 mg/dL High 7-18 [facility] Sodium levelOrdered By: Jed denae Christianne on 09-16-2024 Sodium [Moles/Vol] 139 mmol/L 136-145 [facility] White blood cell (WBC) count Ordered By: Yesika Faust on 09-16-2024 WBC (Bld) [#/Vol] 6.9 10*3/uL 4.4-11.0 [facility] Absolute neutrophil countOrd ered By: Yesika Faust on 08-16-2024 Neutrophils (Bld) [#/Vol] 3.4 10*3/uL 2.0-7.7 [facility] Basophil percentageOrdered B y: Yesika Faust on 08-16-2024 Basophils/100 WBC (Bld) 0.7 % 0-1 [facility] Blood urea nitrogen (BUN)/cr eatinine ratioOrdered By: Yesika Faust on 08-16-2024 Urea nitrogen/Creatinine [Mass ratio] 35.8 mg/mg High 10-20 [facility] Carbon dioxide measurementOr dered By: Yesika Faust on 08-16-2024 CO2 [Moles/Vol] 28.0 mmol/L 21.0-32.0 [facility] Chloride measurementOrdered By: ky Faust on 08-16-2024 Chloride [Moles/Vol] 110 mmol/L High 98-107 [facility] Eosinophil percentageOrdered By: Yesika Butterfieldkathieaida on 08-16-2024 Eosinophils/100 WBC (Bld) 3.1 % 0-5 [facility] Erythrocyte distribution wid th (RBC) [Ratio]Ordered By: Yesika Faust on 08-16-2024 Erythrocyte distribution width (RBC) [Entitic vol] 50.8 fL High 35.1-43.9 [facility] Erythrocyte distribution wid th ratioOrdered By: Yesika Faust on 08-16-2024 Erythrocyte distribution width (RBC) [Ratio] 14.0 % 11.6-14.6 [facility] Estimated glomerular filtrat ion rate (GFR) AmericanOrdered By: Yesika Faust on 08-16-2024 Estimated GFR (MDRD) Amer 141 mL/min >60 [facility] Comment on above: GFR Calc Glomerular filtration rate ( GFR) estimationOrdered By: enriquetaclevelandmacarena Faust on 08-16-2024 Estimated GFR (MDRD) Non-Af Amer 116 mL/min >60 [facility] Comment on above: Non- GFR Calc Glucose measurementOrdered B y: Yesika Faust on 08-16-2024 Glucose [Mass/Vol] 85 mg/dL 74-106 [facility] Hematocrit Auto (Bld) [Volum e fraction]Ordered By: Yesika Faust on 08-16-2024 Hematocrit (Bld) [Volume fraction] 41.2 % 37-47 [facility] Hemoglobin measurementOrdere d By: Yesika Faust on 08-16-2024 Hemoglobin (Bld) [Mass/Vol] 12.9 g/dL 12.0-15.0 [facility] Immature granulocytes/100 WB C Auto (Bld)Ordered By: ky Faust on 08-16-2024 Immature granulocytes/100 WBC (Bld) 0.300 % 0.0-0.9 [facility] Comment on above: IG% - Immature Granu locytes (promyelocytes, myelocytes and metamyelocytes) > 1% indicates that a LEFT SHIFT is Present. Lymphocytes Auto (Unsp spec) [#/Vol]Ordered By: Yesika Faust on 08-16-2024 Lymphocytes (Bld) [#/Vol] 1.61 10*3/uL 0.83-4.51 [facility] Lymphocytes/100 WBC Auto (Un sp spec)Ordered By: Yesika Faust on 08-16-2024 Lymphocytes/100 WBC (Bld) 27.4 % 19-41 [facility] MCV (mean corpuscular volume ) determinationOrdered By: Yesika Faust on 08-16-2024 MCV (RBC) [Entitic vol] 99.0 fL 81-99 [facility] Mean corpuscular hemoglobin (MCH) determinationOrdered By: Yesika Faust on 08-16-2024 MCH (RBC) [Entitic mass] 31.0 pg 27.0-32.0 [facility] Mean corpuscular hemoglobin concentration (MCHC) determinationOrdered By: Yesika Faust on 08-16-2024 MCHC (RBC) [Mass/Vol] 31.3 g/dL Low 32-36 [facility] Mean platelet volume determi nationOrdered By: Yesika Faust on 08-16-2024 Platelet mean volume (Bld) [Entitic vol] 10.8 fL 6.2-12.0 [facility] Monocyte percentageOrdered B y: Yesika Faust on 08-16-2024 Monocytes/100 WBC (Bld) 10.5 % High 0-10 [facility] Neutrophil percentageOrdered By: Yesika Faust on 08-16-2024 Neutrophils/100 WBC (Bld) 58.0 % 47-70 [facility] Nucleated red blood cell per centageOrdered By: Yesika Faust on 08-16-2024 Nucleated RBC/100 WBC (Bld) [Ratio] 0 % 0-5 [facility] Platelet countOrdered By: Tad Faust on 08-16-2024 Platelets (Bld) [#/Vol] 242 10*3/uL 150-450 [facility] Potassium measurementOrdered By: Yesika Faust on 08-16-2024 Potassium [Moles/Vol] 3.9 mmol/L 3.5-5.1 [facility] RBC Auto (Bld) [#/Vol]Ordere d By: Yesika Faust on 08-16-2024 RBC (Bld) [#/Vol] 4.16 10*6/uL Low 4.2-5.4 [facility] Serum anion gap measurementO rdered By: Yesika Faust on 08-16-2024 Anion gap [Moles/Vol] 4 mmol/L Low 5-15 [facility] Serum or plasma calcium madi urement (mass/volume)Ordered By: Yesika Faust on 08-16-2024 Calcium [Mass/Vol] 8.9 mg/dL 8.5-10.1 [facility] Serum or plasma creatinine m easurement (mass/volume)Ordered By: Yesika Faust on 08-16-2024 Creatinine [Mass/Vol] 0.53 mg/dL Low 0.55-1.02 [facility] Comment on above: The validity of the calculated GFR & GFRAA in patients over 70 years has not been determined. Clinical correlation is essential. Serum or plasma urea nitroge n measurement (mass/volume)Ordered By: Yesika Faust on 08-16-2024 Urea nitrogen [Mass/Vol] 19 mg/dL High 7-18 [facility] Sodium levelOrdered By: Jed denae Christianne on 08-16-2024 Sodium [Moles/Vol] 142 mmol/L 136-145 [facility] White blood cell (WBC) count Ordered By: Yesika Faust on 08-16-2024 WBC (Bld) [#/Vol] 5.9 10*3/uL 4.4-11.0 [facility] Absolute lymphocyte countOrd ered By: Yesika Faust on 11-17-2023 Lymphocytes Auto (Unsp spec) [#/Vol] 1.64 10*3/uL 0.83-4.51 [facility] Automated lymphocyte count a s percentage of total leukocytesOrdered By: Yesika Faust on 11-17-2023 Lymphocytes/100 WBC Auto (Unsp spec) 26.6 % 19-41 [facility] Basophil percentageOrdered B y: Yesika Faust on 11-17-2023 Basophils/100 WBC (Bld) 0.6 % 0-1 [facility] Chloride [Moles/Vol] 109 mmol/L 98-107 [facility] Eosinophils/100 WBC (Bld) 1.8 % 0-5 [facility] Glucose [Mass/Vol] 91 mg/dL 74-106 [facility] Hemoglobin (Bld) [Mass/Vol] 12.9 g/dL 12.0-15.0 [facility] Monocytes/100 WBC (Bld) 9.4 % 0-10 [facility] Neutrophils (Bld) [#/Vol] 3.8 10*3/uL 2.0-7.7 [facility] Neutrophils/100 WBC (Bld) 61.1 % 47-70 [facility] Potassium [Moles/Vol] 3.8 mmol/L 3.5-5.1 [facility] Sodium [Moles/Vol] 140 mmol/L 136-145 [facility] WBC (Bld) [#/Vol] 6.2 10*3/uL 4.4-11.0 [facility] Determination of erythrocyte mean corpuscular volume (MCV)Ordered By: Yesika Faust on 11-17-2023 MCV (RBC) [Entitic vol] 91.8 fL 81-99 [facility] Erythrocyte distribution wid th ratioOrdered By: [facility] Christianne on 11-17-2023 Erythrocyte distribution width (RBC) [Ratio] 14.3 % 11.6-14.6 [facility] Erythrocyte distribution wid th standard deviationOrdered By: [facility] Scoutaida on 11-17-2023 Erythrocyte distribution width (RBC) [Entitic vol] 48.0 fL 35.1-43.9 [facility] Hematocrit Auto (Bld) [Volum e fraction]Ordered By: [facility]a Faust on 11-17-2023 Hematocrit (Bld) [Volume fraction] 39.3 % 37-47 [facility] Immature granulocytes/100 WB C Auto (Bld)[facility]23 Immature granulocytes/100 WBC (Bld) 0.500 % 0.0-0.9 [facility] Comment on above: IG% - Immature Granu locytes (promyelocytes, myelocytes and metamyelocytes) > 1% indicates that a LEFT SHIFT is Present. Laboratory - Chemistry and C hemistry - challengeOrdered By: Yesika Faust on 11-17-2023 CO2 [Moles/Vol] 28.0 mmol/L 21.0-32.0 [facility] Urea nitrogen/Creatinine [Mass ratio] 18.6 mg/mg 10-20 [facility] Laboratory - Hematology and Cell countsOrdered By: Yesika Faust on 11-17-2023 MCH (RBC) [Entitic mass] 30.1 pg 27.0-32.0 [facility] MCHC (RBC) [Mass/Vol] 32.8 g/dL 32-36 [facility] Nucleated RBC/100 WBC (Bld) [Ratio] 0 % 0-5 [facility] Platelet mean volume (Bld) [Entitic vol] 9.9 fL 6.2-12.0 [facility] Platelets (Bld) [#/Vol] 230 10*3/uL 150-450 [facility] No Panel InformationOrdered By: Yesika Faust on 11-17-2023 Estimated GFR (MDRD) Amer 94 mL/min >60 [facility] Comment on above: GFR Calc Estimated GFR (MDRD) Non-Af Amer 78 mL/min >60 [facility] Comment on above: Non- GFR Calc RBC Auto (Bld) [#/Vol]Ordere d By: Yesika Faust on 11-17-2023 RBC (Bld) [#/Vol] 4.28 10*6/uL 4.2-5.4 [facility] Serum or plasma calcium madi urement (mass/volume)Ordered By: Yesika Faust on 11-17-2023 Calcium [Mass/Vol] 9.2 mg/dL 8.5-10.1 [facility] Serum or plasma creatinine m easurement (mass/volume)Ordered By: Yesika Faust on 11-17-2023 Creatinine [Mass/Vol] 0.75 mg/dL 0.55-1.02 [facility] Comment on above: The validity of the calculated GFR & GFRAA in patients over 70 years has not been determined. Clinical correlation is essential. Serum or plasma urea nitroge n measurement (mass/volume)Ordered By: Yesika Faust on 11-17-2023 Urea nitrogen [Mass/Vol] 14 mg/dL 7-18 [facility] Thin prep Papanicolaou smear with manual screeningOrdered By: Yesika Faust on 11-17-2023 Thin prep Papanicolaou smear with manual screening 3 5-15 [facility] Absolute lymphocyte countOrd ered By: Yesika Faust on 08-18-2023 Lymphocytes Auto (Unsp spec) [#/Vol] 1.67 10*3/uL 0.83-4.51 [facility] Basophil percentageOrdered B y: Yesika Faust on 08-18-2023 Basophils/100 WBC (Bld) 0.7 % 0-1 [facility] Chloride [Moles/Vol] 109 mmol/L 98-107 [facility] Eosinophils/100 WBC (Bld) 2.8 % 0-5 [facility] Glucose [Mass/Vol] 89 mg/dL 74-106 [facility] Neutrophils (Bld) [#/Vol] 3.1 10*3/uL 2.0-7.7 [facility] Neutrophils/100 WBC (Bld) 56.1 % 47-70 [facility] Potassium [Moles/Vol] 4.0 mmol/L 3.5-5.1 [facility] Sodium [Moles/Vol] 141 mmol/L 136-145 [facility] WBC (Bld) [#/Vol] 5.4 10*3/uL 4.4-11.0 [facility] Blood erythrocytes count (nu mber/volume)Ordered By: Yesika Faust on 08-18-2023 RBC (Bld) [#/Vol] 4.55 10*6/uL 4.2-5.4 [facility] Blood hemoglobin measurement (mass/volume)Ordered By: Yesika Faust on 08-18-2023 Hemoglobin (Bld) [Mass/Vol] 12.9 g/dL 12.0-15.0 [facility] Blood lymphocytes/100 leukoc ytesOrdered By: Yesika Faust on 08-18-2023 Lymphocytes/100 WBC (Bld) 30.8 % 19-41 [facility] Blood monocytes/100 leukocyt esOrdered By: Yesika Faust on 08-18-2023 Monocytes/100 WBC (Bld) 9.4 % 0-10 [facility] Blood platelet mean volumeOr dered By: Yesika Faust on 08-18-2023 Platelet mean volume (Bld) [Entitic vol] 10.4 fL 6.2-12.0 [facility] Determination of erythrocyte mean corpuscular volume (MCV)Ordered By: Yesika Faust on 08-18-2023 MCV (RBC) [Entitic vol] 89.5 fL 81-99 [facility] Hematocrit Auto (Bld) [Volum e fraction]Ordered By: Jedclevelandmacarena Faust on 08-18-2023 Hematocrit (Bld) [Volume fraction] 40.7 % 37-47 [facility] Laboratory - Chemistry and C hemistry - challengeOrdered By: Jedclevelandmacarena Faust on 08-18-2023 CO2 [Moles/Vol] 29.0 mmol/L 21.0-32.0 [facility] Urea nitrogen/Creatinine [Mass ratio] 16.6 mg/mg 10-20 [facility] Laboratory - Hematology and Cell countsOrdered By: Yesika Faust on 08-18-2023 Erythrocyte distribution width (RBC) [Entitic vol] 45.5 fL 35.1-43.9 [facility] Erythrocyte distribution width (RBC) [Ratio] 13.9 % 11.6-14.6 [facility] Immature granulocytes/100 WBC (Bld) 0.200 % 0.0-0.9 [facility] Comment on above: IG% - Immature Granu locytes (promyelocytes, myelocytes and metamyelocytes) > 1% indicates that a LEFT SHIFT is Present. MCH (RBC) [Entitic mass] 28.4 pg 27.0-32.0 [facility] Nucleated RBC/100 WBC (Bld) [Ratio] 0 % 0-5 [facility] MCHC Auto (RBC) [Mass/Vol]Or dered By: Yesika Faust on 08-18-2023 MCHC (RBC) [Mass/Vol] 31.7 g/dL 32-36 [facility] No Panel InformationOrdered By: ky Faust on 08-18-2023 Estimated GFR (MDRD) Amer 109 mL/min >60 [facility] Comment on above: GFR Calc Estimated GFR (MDRD) Non-Af Amer 90 mL/min >60 [facility] Comment on above: Non- GFR Calc Platelets bldOrdered By: Randall Faust on 08-18-2023 Platelets (Bld) [#/Vol] 221 10*3/uL 150-450 [facility] Serum or plasma calcium madi urement (mass/volume)Ordered By: Yesika Faust on 08-18-2023 Calcium [Mass/Vol] 8.8 mg/dL 8.5-10.1 [facility] Serum or plasma creatinine m easurement (mass/volume)Ordered By: Yesika Faust on 08-18-2023 Creatinine [Mass/Vol] 0.66 mg/dL 0.55-1.02 [facility] Comment on above: The validity of the calculated GFR & GFRAA in patients over 70 years has not been determined. Clinical correlation is essential. Serum or plasma urea nitroge n measurement (mass/volume)Ordered By: Yesika Faust on 08-18-2023 Urea nitrogen [Mass/Vol] 11 mg/dL 7-18 [facility] Thin prep Papanicolaou smear with manual screeningOrdered By: Yesika Faust on 08-18-2023 Thin prep Papanicolaou smear with manual screening 3 5-15 [facility] Absolute lymphocyte countOrd ered By: Yesika Faust on 05-19-2023 Lymphocytes Auto (Unsp spec) [#/Vol] 1.86 10*3/uL 0.83-4.51 [facility] Basophil percentageOrdered B y: Yesika Faust on 05-19-2023 Basophils/100 WBC (Bld) 0.8 % 0-1 [facility] Chloride [Moles/Vol] 107 mmol/L 98-107 [facility] Eosinophils/100 WBC (Bld) 1.5 % 0-5 [facility] Glucose [Mass/Vol] 125 mg/dL 74-106 [facility] Comment on above: Fasting Glucose resu lt from 100 to 125 mg/dL suggests IMPAIRED HOMEOSTASIS per A.D.A. criteria. Neutrophils (Bld) [#/Vol] 3.4 10*3/uL 2.0-7.7 [facility] Neutrophils/100 WBC (Bld) 55.5 % 47-70 [facility] Potassium [Moles/Vol] 3.6 mmol/L 3.5-5.1 [facility] Sodium [Moles/Vol] 139 mmol/L 136-145 [facility] WBC (Bld) [#/Vol] 6.2 10*3/uL 4.4-11.0 [facility] Blood erythrocytes count (nu mber/volume)Ordered By: Yesika Faust on 05-19-2023 RBC (Bld) [#/Vol] 4.24 10*6/uL 4.2-5.4 [facility] Blood hemoglobin measurement (mass/volume)Ordered By: Yesika Faust on 05-19-2023 Hemoglobin (Bld) [Mass/Vol] 11.7 g/dL 12.0-15.0 [facility] Blood lymphocytes/100 leukoc ytesOrdered By: Yesika Faust on 05-19-2023 Lymphocytes/100 WBC (Bld) 30.1 % 19-41 [facility] Blood monocytes/100 leukocyt esOrdered By: Yesika Faust on 05-19-2023 Monocytes/100 WBC (Bld) 11.8 % 0-10 [facility] Blood platelet mean volumeOr dered By: Yesika Faust on 05-19-2023 Platelet mean volume (Bld) [Entitic vol] 10.5 fL 6.2-12.0 [facility] Determination of erythrocyte mean corpuscular volume (MCV)Ordered By: Yesika Faust on 05-19-2023 MCV (RBC) [Entitic vol] 90.3 fL 81-99 [facility] Hematocrit Auto (Bld) [Volum e fraction]Ordered By: Yesika Faust on 05-19-2023 Hematocrit (Bld) [Volume fraction] 38.3 % 37-47 [facility] Laboratory - Chemistry and C hemistry - challengeOrdered By: Yesika Faust on 05-19-2023 CO2 [Moles/Vol] 29.0 mmol/L 21.0-32.0 [facility] Urea nitrogen/Creatinine [Mass ratio] 21.6 mg/mg 10-20 [facility] Laboratory - Hematology and Cell countsOrdered By: Yesika Faust on 05-19-2023 Erythrocyte distribution width (RBC) [Entitic vol] 50.2 fL 35.1-43.9 [facility] Erythrocyte distribution width (RBC) [Ratio] 15.2 % 11.6-14.6 [facility] Immature granulocytes/100 WBC (Bld) 0.300 % 0.0-0.9 [facility] Comment on above: IG% - Immature Granu locytes (promyelocytes, myelocytes and metamyelocytes) > 1% indicates that a LEFT SHIFT is Present. MCH (RBC) [Entitic mass] 27.6 pg 27.0-32.0 [facility] Nucleated RBC/100 WBC (Bld) [Ratio] 0 % 0-5 [facility] MCHC Auto (RBC) [Mass/Vol]Or dered By: Yesika Faust on 05-19-2023 MCHC (RBC) [Mass/Vol] 30.5 g/dL 32-36 [facility] No Panel InformationOrdered By: Yesika Faust on 05-19-2023 Estimated GFR (MDRD) Amer 74 mL/min >60 [facility] Comment on above: GFR Calc Estimated GFR (MDRD) Non-Af Amer 61 mL/min >60 [facility] Comment on above: Non- GFR Calc Platelets bldOrdered By: Randall Faust on 05-19-2023 Platelets (Bld) [#/Vol] 234 10*3/uL 150-450 [facility] Serum or plasma calcium madi urement (mass/volume)Ordered By: Yesika Faust on 05-19-2023 Calcium [Mass/Vol] 8.7 mg/dL 8.5-10.1 [facility] Serum or plasma creatinine m easurement (mass/volume)Ordered By: Yesika Faust on 05-19-2023 Creatinine [Mass/Vol] 0.92 mg/dL 0.55-1.02 [facility] Comment on above: The validity of the calculated GFR & GFRAA in patients over 70 years has not been determined. Clinical correlation is essential. Serum or plasma urea nitroge n measurement (mass/volume)Ordered By: Yesika Faust on 05-19-2023 Urea nitrogen [Mass/Vol] 20 mg/dL 7-18 [facility] Thin prep Papanicolaou smear with manual screeningOrdered By: ky Faust on 05-19-2023 Thin prep Papanicolaou smear with manual screening 3 5-15 [facility] Absolute lymphocyte countOrd ered By: ky Fauts on 02-17-2023 Lymphocytes Auto (Unsp spec) [#/Vol] 1.67 10*3/uL 0.83-4.51 [facility] Basophil percentageOrdered B y: Yesika Faust on 02-17-2023 Basophils/100 WBC (Bld) 0.8 % 0-1 [facility] Chloride [Moles/Vol] 109 mmol/L 98-107 [facility] Eosinophils/100 WBC (Bld) 2.8 % 0-5 [facility] Glucose [Mass/Vol] 94 mg/dL 74-106 [facility] Neutrophils (Bld) [#/Vol] 3.9 10*3/uL 2.0-7.7 [facility] Neutrophils/100 WBC (Bld) 60.0 % 47-70 [facility] Potassium [Moles/Vol] 3.7 mmol/L 3.5-5.1 [facility] Sodium [Moles/Vol] 141 mmol/L 136-145 [facility] WBC (Bld) [#/Vol] 6.5 10*3/uL 4.4-11.0 [facility] Blood erythrocytes count (nu mber/volume)Ordered By: Yesika Faust on 02-17-2023 RBC (Bld) [#/Vol] 4.33 10*6/uL 4.2-5.4 [facility] Blood hemoglobin measurement (mass/volume)Ordered By: Yesika Faust on 02-17-2023 Hemoglobin (Bld) [Mass/Vol] 11.4 g/dL 12.0-15.0 [facility] Blood lymphocytes/100 leukoc ytesOrdered By: Yesika Faust on 02-17-2023 Lymphocytes/100 WBC (Bld) 25.9 % 19-41 [facility] Blood monocytes/100 leukocyt esOrdered By: Yesika Faust on 02-17-2023 Monocytes/100 WBC (Bld) 10.2 % 0-10 [facility] Blood platelet mean volumeOr dered By: Yesika Faust on 02-17-2023 Platelet mean volume (Bld) [Entitic vol] 10.6 fL 6.2-12.0 [facility] Determination of erythrocyte mean corpuscular volume (MCV)Ordered By: Jedclevelandmacarena Faust on 02-17-2023 MCV (RBC) [Entitic vol] 86.4 fL 81-99 [facility] Hematocrit Auto (Bld) [Volum e fraction]Ordered By: Yesika Faust on 02-17-2023 Hematocrit (Bld) [Volume fraction] 37.4 % 37-47 [facility] Laboratory - Chemistry and C hemistry - challengeOrdered By: Yesika Faust on 02-17-2023 CO2 [Moles/Vol] 28.0 mmol/L 21.0-32.0 [facility] Urea nitrogen/Creatinine [Mass ratio] 16.1 mg/mg 10-20 [facility] Laboratory - Hematology and Cell countsOrdered By: Yesika Faust on 02-17-2023 Erythrocyte distribution width (RBC) [Entitic vol] 56.0 fL 35.1-43.9 [facility] Erythrocyte distribution width (RBC) [Ratio] 17.5 % 11.6-14.6 [facility] Immature granulocytes/100 WBC (Bld) 0.300 % 0.0-0.9 [facility] Comment on above: IG% - Immature Granu locytes (promyelocytes, myelocytes and metamyelocytes) > 1% indicates that a LEFT SHIFT is Present. MCH (RBC) [Entitic mass] 26.3 pg 27.0-32.0 [facility] Nucleated RBC/100 WBC (Bld) [Ratio] 0 % 0-5 [facility] MCHC Auto (RBC) [Mass/Vol]Or dered By: Yesika Faust on 02-17-2023 MCHC (RBC) [Mass/Vol] 30.5 g/dL 32-36 [facility] No Panel InformationOrdered By: Yesika Faust on 02-17-2023 Estimated GFR (MDRD) Amer 106 mL/min >60 [facility] Comment on above: GFR Calc Estimated GFR (MDRD) Non-Af Amer 87 mL/min >60 [facility] Comment on above: Non- GFR Calc Platelets bldOrdered By: Randall Faust on 02-17-2023 Platelets (Bld) [#/Vol] 228 10*3/uL 150-450 [facility] Serum or plasma calcium madi urement (mass/volume)Ordered By: Yesika Faust on 02-17-2023 Calcium [Mass/Vol] 8.8 mg/dL 8.5-10.1 [facility] Serum or plasma creatinine m easurement (mass/volume)Ordered By: Yesika Faust on 02-17-2023 Creatinine [Mass/Vol] 0.68 mg/dL 0.55-1.02 [facility] Comment on above: The validity of the calculated GFR & GFRAA in patients over 70 years has not been determined. Clinical correlation is essential. Serum or plasma urea nitroge n measurement (mass/volume)Ordered By: Yesika Faust on 02-17-2023 Urea nitrogen [Mass/Vol] 11 mg/dL 7-18 [facility] Thin prep Papanicolaou smear with manual screeningOrdered By: Yesika Faust on 02-17-2023 Thin prep Papanicolaou smear with manual screening 4 5-15 [facility] Basophil percentageOrdered B y: Cl Tsang on 01-12-2023 Cholesterol [Mass/Vol] 112 mg/dL <200 [facility] Comment on above: <200 mg/dL Desirable 200-240 mg/dL Borderline >240 mg/dL High Risk Triglyceride [Mass/Vol] 110 mg/dL <199 [facility] Comment on above: The drugs N-Acetylcy steine and Metamizole may falsely depress this assay.Serum Triglycerides Reference Interval Normal <150 mg/dL Borderline high 150 - 199 mg/dL High 200 - 499 mg/dL Very High > or = 500 mg/dL Serum or plasma cholesterol in HDL measurement (mass/volume)Ordered By: Cl Tsang on 01-12-2023 Cholesterol in HDL [Mass/Vol] 50 mg/dL >40 [facility] Comment on above: The drugs N-Acetylcy steine and Metamizole may falsely depress this assay. Reference Range HDL <40 mg/dL Low HDL Cholesterol HDL >or= 60 mg/dL High HDL Cholesterol Serum or plasma cholesterol in VLDL measurement (mass/volume)Ordered By: Cl Tsang on 01-12-2023 Cholesterol in VLDL [Mass/Vol] 22 mg/dL 5-40 [facility] Serum or plasma low density lipoprotein (LDL) cholesterol measurement (mass/volume)Ordered By: Cl Tsang on 01-12-2023 Cholesterol in LDL [Mass/Vol] 40 mg/dL 0-130 [facility] Basophil percentageOrdered B y: Yesika Faust on 11-18-2022 Chloride [Moles/Vol] 108 mmol/L 98-107 [facility] Glucose [Mass/Vol] 114 mg/dL 74-106 [facility] Comment on above: Fasting Glucose resu lt from 100 to 125 mg/dL suggests IMPAIRED HOMEOSTASIS per A.D.A. criteria. Potassium [Moles/Vol] 4.1 mmol/L 3.5-5.1 [facility] Sodium [Moles/Vol] 142 mmol/L 136-145 [facility] WBC (Bld) [#/Vol] 5.6 10*3/uL 4.4-11.0 [facility] Blood erythrocytes count (nu mber/volume)Ordered By: Yesika Faust on 11-18-2022 RBC (Bld) [#/Vol] 3.89 10*6/uL 4.2-5.4 [facility] Blood hemoglobin measurement (mass/volume)Ordered By: Yeskia Faust on 11-18-2022 Hemoglobin (Bld) [Mass/Vol] 10.5 g/dL 12.0-15.0 [facility] Blood platelet mean volumeOr dered By: Yesika Faust on 11-18-2022 Platelet mean volume (Bld) [Entitic vol] 10.7 fL 6.2-12.0 [facility] Determination of erythrocyte mean corpuscular volume (MCV)Ordered By: Yesika Faust on 11-18-2022 MCV (RBC) [Entitic vol] 88.4 fL 81-99 [facility] Hematocrit Auto (Bld) [Volum e fraction]Ordered By: Yesika Faust on 11-18-2022 Hematocrit (Bld) [Volume fraction] 34.4 % 37-47 [facility] Laboratory - Chemistry and C hemistry - challengeOrdered By: Yesika Faust on 11-18-2022 CO2 [Moles/Vol] 27.0 mmol/L 21.0-32.0 [facility] Urea nitrogen/Creatinine [Mass ratio] 18.9 mg/mg 10-20 [facility] Laboratory - Hematology and Cell countsOrdered By: Yesika Faust on 11-18-2022 Erythrocyte distribution width (RBC) [Entitic vol] 43.8 fL 35.1-43.9 [facility] Erythrocyte distribution width (RBC) [Ratio] 13.4 % 11.6-14.6 [facility] MCH (RBC) [Entitic mass] 27.0 pg 27.0-32.0 [facility] MCHC Auto (RBC) [Mass/Vol]Or dered By: Yesika Faust on 11-18-2022 MCHC (RBC) [Mass/Vol] 30.5 g/dL 32-36 [facility] No Panel InformationOrdered By: Yesika Faust on 11-18-2022 Estimated GFR (MDRD) Amer 115 mL/min >60 [facility] Comment on above: GFR Calc Estimated GFR (MDRD) Non-Af Amer 95 mL/min >60 [facility] Comment on above: Non- GFR Calc Platelets bldOrdered By: Randall Faust on 11-18-2022 Platelets (Bld) [#/Vol] 247 10*3/uL 150-450 [facility] Serum or plasma calcium madi urement (mass/volume)Ordered By: Yesika Faust on 11-18-2022 Calcium [Mass/Vol] 9.1 mg/dL 8.5-10.1 [facility] Serum or plasma creatinine m easurement (mass/volume)Ordered By: Yesika Faust on 11-18-2022 Creatinine [Mass/Vol] 0.64 mg/dL 0.55-1.02 [facility] Comment on above: The validity of the calculated GFR & GFRAA in patients over 70 years has not been determined. Clinical correlation is essential. Serum or plasma urea nitroge n measurement (mass/volume)Ordered By: Yesika Faust on 11-18-2022 Urea nitrogen [Mass/Vol] 12 mg/dL 7-18 [facility] Thin prep Papanicolaou smear with manual screeningOrdered By: [facility] 11-18-[facility]22 Thin prep Papanicolaou smear with manual screening 7 5-15 [facility] Absolute lymphocyte countOrd ered By: Yeskia Faust on 08-19-2022 Lymphocytes Auto (Unsp spec) [#/Vol] 1.60 10*3/uL 0.83-4.51 [facility] Basophil percentageOrdered B y: Yesika Faust on 08-19-2022 Basophils/100 WBC (Bld) 0.4 % 0-1 [facility] Chloride [Moles/Vol] 105 mmol/L 98-107 [facility] Eosinophils/100 WBC (Bld) 0.2 % 0-5 [facility] Glucose [Mass/Vol] 96 mg/dL 74-106 [facility] Neutrophils (Bld) [#/Vol] 3.3 10*3/uL 2.0-7.7 [facility] Neutrophils/100 WBC (Bld) 59.4 % 47-70 [facility] Potassium [Moles/Vol] 4.0 mmol/L 3.5-5.1 [facility] Sodium [Moles/Vol] 141 mmol/L 136-145 [facility] WBC (Bld) [#/Vol] 5.6 10*3/uL 4.4-11.0 [facility] Blood erythrocytes count (nu mber/volume)Ordered By: Yesika Faust on 08-19-2022 RBC (Bld) [#/Vol] 4.44 10*6/uL 4.2-5.4 [facility] Blood hemoglobin measurement (mass/volume)Ordered By: Yesika Faust on 08-19-2022 Hemoglobin (Bld) [Mass/Vol] 13.0 g/dL 12.0-15.0 [facility] Blood lymphocytes/100 leukoc ytesOrdered By: Yesika Faust on 08-19-2022 Lymphocytes/100 WBC (Bld) 28.8 % 19-41 [facility] Blood monocytes/100 leukocyt esOrdered By: Yesika Faust on 08-19-2022 Monocytes/100 WBC (Bld) 11.0 % 0-10 [facility] Blood platelet mean volumeOr dered By: Yesika Faust on 08-19-2022 Platelet mean volume (Bld) [Entitic vol] 10.7 fL 6.2-12.0 [facility] Determination of erythrocyte mean corpuscular volume (MCV)Ordered By: Yesika Faust on 08-19-2022 MCV (RBC) [Entitic vol] 93.0 fL 81-99 [facility] Hematocrit Auto (Bld) [Volum e fraction]Ordered By: [facility] on 08-19-2022 Hematocrit (Bld) [Volume fraction] 41.3 % 37-47 [facility] Laboratory - Chemistry and C hemistry - challengeOrdered By: Yesika Faust on 08-19-2022 CO2 [Moles/Vol] 29.0 mmol/L 21.0-32.0 [facility] Urea nitrogen/Creatinine [Mass ratio] 19.4 mg/mg 10-20 [facility] Laboratory - Hematology and Cell countsOrdered By: Yesika Faust on 08-19-2022 Erythrocyte distribution width (RBC) [Entitic vol] 44.3 fL 35.1-43.9 [facility] Erythrocyte distribution width (RBC) [Ratio] 12.9 % 11.6-14.6 [facility] Immature granulocytes/100 WBC (Bld) 0.200 % 0.0-0.9 [facility] Comment on above: IG% - Immature Granu locytes (promyelocytes, myelocytes and metamyelocytes) > 1% indicates that a LEFT SHIFT is Present. MCH (RBC) [Entitic mass] 29.3 pg 27.0-32.0 [facility] Nucleated RBC/100 WBC (Bld) [Ratio] 0 % 0-5 [facility] MCHC Auto (RBC) [Mass/Vol]Or dered By: Yesika Faust on 08-19-2022 MCHC (RBC) [Mass/Vol] 31.5 g/dL 32-36 [facility] No Panel InformationOrdered By: Yesika Faust on 08-19-2022 Estimated GFR (MDRD) Amer 99 mL/min >60 [facility] Comment on above: GFR Calc Estimated GFR (MDRD) Non-Af Amer 82 mL/min >60 [facility] Comment on above: Non- GFR Calc Platelets bldOrdered By: Randall Faust on 08-19-2022 Platelets (Bld) [#/Vol] 216 10*3/uL 150-450 [facility] Serum or plasma calcium madi urement (mass/volume)Ordered By: Yesika Faust on 08-19-2022 Calcium [Mass/Vol] 9.4 mg/dL 8.5-10.1 [facility] Serum or plasma creatinine m easurement (mass/volume)Ordered By: Yesika Faust on 08-19-2022 Creatinine [Mass/Vol] 0.72 mg/dL 0.55-1.02 [facility] Comment on above: The validity of the calculated GFR & GFRAA in patients over 70 years has not been determined. Clinical correlation is essential. Serum or plasma urea nitroge n measurement (mass/volume)Ordered By: Yesika Faust on 08-19-2022 Urea nitrogen [Mass/Vol] 14 mg/dL 7-18 [facility] Thin prep Papanicolaou smear with manual screeningOrdered By: Yesika Faust on 08-19-2022 Thin prep Papanicolaou smear with manual screening 7 5-15 [facility] Absolute lymphocyte counton 05-20-2022 Lymphocytes Auto (Unsp spec) [#/Vol] 1.88 10*3/uL 0.83-4.51 [facility] Work Phone: Basophil percentageon 2021 Basophils/100 WBC (Bld) 0.7 % 0-1 [facility] Work Phone: Chloride [Moles/Vol] 111 mmol/L 98-107 [facility]: Eosinophils/100 WBC (Bld) 4.0 % 0-5 [facility] Work Phone: Glucose [Mass/Vol] 94 mg/dL 74-106 [facility] Work Phone: Neutrophils (Bld) [#/Vol] 3.3 10*3/uL 2.0-7.7 [facility] Work Phone: Neutrophils/100 WBC (Bld) 55.6 % 47-70 [facility] Work Phone: Potassium [Moles/Vol] 4.1 mmol/L 3.5-5.1 [facility] Work Phone: Sodium [Moles/Vol] 139 mmol/L 136-145 [facility] Work Phone: WBC (Bld) [#/Vol] 6.0 10*3/uL 4.4-11.0 [facility] Work Phone: Blood erythrocytes count (nu mber/volume)on 05-20-2022 RBC (Bld) [#/Vol] 4.01 10*6/uL 4.2-5.4 [facility] Work Phone: Blood hemoglobin measurement (mass/volume)on 05-20-2022 Hemoglobin (Bld) [Mass/Vol] 13.0 g/dL 12.0-15.0 [facility] Work Phone: Blood lymphocytes/100 leukoc yteson 05-20-2022 Lymphocytes/100 WBC (Bld) 31.5 % 19-41 [facility] Work Phone: Blood monocytes/100 leukocyt eson 05-20-2022 Monocytes/100 WBC (Bld) 8.0 % 0-10 [facility] Work Phone: Blood platelet mean volumeon 05-20-2022 Platelet mean volume (Bld) [Entitic vol] 10.3 fL 6.2-12.0 [facility] Work Phone: Determination of erythrocyte mean corpuscular volume (MCV)on 05-20-2022 MCV (RBC) [Entitic vol] 99.3 fL 81-99 [facility] Work Phone: Hematocrit Auto (Bld) [Volum e fraction]on 05-20-2022 Hematocrit (Bld) [Volume fraction] 39.8 % 37-47 [facility] Work Phone: Laboratory - Chemistry and C hemistry - challengeon 05-20-2022 CO2 [Moles/Vol] 17.0 mmol/L 21.0-32.0 [facility] Work Phone: Urea nitrogen/Creatinine [Mass ratio] 13.2 mg/mg 10-20 [facility] Work Phone: Laboratory - Hematology and Cell countson 05-20-2022 Erythrocyte distribution width (RBC) [Entitic vol] 52.0 fL 35.1-43.9 [facility] Work Phone: Erythrocyte distribution width (RBC) [Ratio] 14.4 % 11.6-14.6 [facility] Work Phone: Immature granulocytes/100 WBC (Bld) 0.200 % 0.0-0.9 [facility] Work Phone: Comment on above: IG% - Immature Granu locytes (promyelocytes, myelocytes and metamyelocytes) > 1% indicates that a LEFT SHIFT is Present. MCH (RBC) [Entitic mass] 32.4 pg 27.0-32.0 [facility] Work Phone: Nucleated RBC/100 WBC (Bld) [Ratio] 0 % 0-5 [facility] Work Phone: MCHC Auto (RBC) [Mass/Vol]on 05-20-2022 MCHC (RBC) [Mass/Vol] 32.7 g/dL 32-36 [facility] Work Phone: No Panel Informationon 05-20 Estimated GFR (MDRD) Amer 94 mL/min >60 [facility] Work Phone: Comment on above: GFR Calc Estimated GFR (MDRD) Non-Af Amer 77 mL/min >60 [facility] Work Phone: Comment on above: Non- GFR Calc Platelets bldon 05-20-2022 Platelets (Bld) [#/Vol] 188 10*3/uL 150-450 [facility] Work Phone: Serum or plasma calcium madi urement (mass/volume)on 05-20-2022 Calcium [Mass/Vol] 9.5 mg/dL 8.5-10.1 [facility] Work Phone: Serum or plasma creatinine m easurement (mass/volume)on 05-20-2022 Creatinine [Mass/Vol] 0.76 mg/dL 0.55-1.02 [facility] Work Phone: Comment on above: The validity of the calculated GFR & GFRAA in patients over 70 years has not been determined. Clinical correlation is essential. Serum or plasma urea nitroge n measurement (mass/volume)on 05-20-2022 Urea nitrogen [Mass/Vol] 10 mg/dL 7-18 [facility] Work Phone: Thin prep Papanicolaou smear with manual screeningon 05-20-2022 Thin prep Papanicolaou smear with manual screening 11 5-15 [facility] Work Phone: Bilirubin Test strip Ql (U)o n 03-07-2022 Bilirubin Ql (U) Negative Negative [facility] Work Phone: Ketones Test strip Ql (U)on 03-07-2022 Ketones Ql (U) Negative Negative [facility] Work Phone: Nitrite Test strip Ql (U)on 03-07-2022 Nitrite Ql (U) Positive Negative [facility] Work Phone: Protein Test strip Ql (U)on 03-07-2022 Protein Ql (U) Negative Negative [facility] Work Phone: Urine blood detectionon 02-13 RBC Ql (U) 25 /ul Negative [facility] Work Phone: Urine clarityon 03-07-2022 Clarity (U) Clear Clear [facility] Work Phone: Urine color determinationon 03-07-2022 Color (U) Yellow Yellow [facility] Work Phone: Urine glucose detectionon Glucose Ql (U) Normal mg/dl Normal [facility] Work Phone: Urine leukocyte esterase det ection by dipstickon 03-07-2022 Leukocyte esterase Test strip Ql (U) 500 /ul Negative [facility] Work Phone: Urine pHon 03-07-2022 pH (U) 6.5 [pH] 5.0 - 8.0 [facility] Work Phone: Urine specific gravity measu rementon 03-07-2022 Specific gravity (U) [Rel density] 1.010 1.002-1.03 0 [facility] Work Phone: Urobilinogen Auto test strip Ql (U)on 03-07-2022 Urobilinogen Ql (U) Normal mg/dl Normal [facility] Work Phone: Basophil percentageon 2021 Cholesterol [Mass/Vol] 117 mg/dL <200 [facility] Work Phone: Comment on above: <200 mg/dL Desirable 200-240 mg/dL Borderline >240 mg/dL High Risk Triglyceride [Mass/Vol] 118 mg/dL [facility] Work Phone: Comment on above: The drugs N-Acetylcy steine and Metamizole may falsely depress this assay.Serum Triglycerides Reference Interval Normal <150 mg/dL Borderline high 150 - 199 mg/dL High 200 - 499 mg/dL Very High > or = 500 mg/dL Serum or plasma cholesterol in HDL measurement (mass/volume)on 01-13-2022 Cholesterol in HDL [Mass/Vol] 44 mg/dL [facility] Work Phone: Comment on above: The drugs N-Acetylcy steine and Metamizole may falsely depress this assay. Reference Range HDL <40 mg/dL Low HDL Cholesterol HDL >or= 60 mg/dL High HDL Cholesterol Serum or plasma cholesterol in VLDL measurement (mass/volume)on 01-13-2022 Cholesterol in VLDL [Mass/Vol] 24 mg/dL 5-40 [facility] Work Phone: Serum or plasma low density lipoprotein (LDL) cholesterol measurement (mass/volume)on 01-13-2022 Cholesterol in LDL [Mass/Vol] 49 mg/dL 0-130 [facility] Work Phone: Absolute lymphocyte counton 11-12-2021 Lymphocytes Auto (Unsp spec) [#/Vol] 1.48 10*3/uL 0.83-4.51 [facility] Work Phone: Basophil percentageon 2021 Basophils/100 WBC (Bld) 0.5 % 0-1 [facility] Work Phone: Chloride [Moles/Vol] 108 mmol/L 98-107 [facility] Work Phone: Eosinophils/100 WBC (Bld) 1.4 % 0-5 [facility] Work Phone: Glucose [Mass/Vol] 105 mg/dL 74-106 [facility] Work Phone: Comment on above: Fasting Glucose resu lt from 100 to 125 mg/dL suggests IMPAIRED HOMEOSTASIS per A.D.A. criteria. Neutrophils (Bld) [#/Vol] 3.5 10*3/uL 2.0-7.7 [facility] Work Phone: Neutrophils/100 WBC (Bld) 61.7 % 47-70 [facility] Work Phone: Potassium [Moles/Vol] 3.8 mmol/L 3.5-5.1 [facility] Work Phone: Sodium [Moles/Vol] 139 mmol/L 136-145 [facility] Work Phone: WBC (Bld) [#/Vol] 5.7 10*3/uL 4.4-11.0 [facility] Work Phone: Blood erythrocytes count (nu mber/volume)on 11-12-2021 RBC (Bld) [#/Vol] 4.44 10*6/uL 4.2-5.4 [facility] Work Phone: Blood hemoglobin measurement (mass/volume)on 11-12-2021 Hemoglobin (Bld) [Mass/Vol] 13.7 g/dL 12.0-15.0 [facility] Work Phone: Blood lymphocytes/100 leukoc yteson 11-12-2021 Lymphocytes/100 WBC (Bld) 26.0 % 19-41 [facility] Work Phone: Blood monocytes/100 leukocyt eson 11-12-2021 Monocytes/100 WBC (Bld) 10.0 % 0-10 [facility] Work Phone: Blood platelet mean volumeon 11-12-2021 Platelet mean volume (Bld) [Entitic vol] 10.2 fL 6.2-12.0 [facility] Work Phone: Determination of erythrocyte mean corpuscular volume (MCV)on 11-12-2021 MCV (RBC) [Entitic vol] 89.4 fL 81-99 [facility] Work Phone: Hematocrit Auto (Bld) [Volum e fraction]on 11-12-2021 Hematocrit (Bld) [Volume fraction] 39.7 % 37-47 [facility] Work Phone: Laboratory - Chemistry and C hemistry - challengeon 11-12-2021 CO2 [Moles/Vol] 29.0 mmol/L 21.0-32.0 [facility] Work Phone: Urea nitrogen/Creatinine [Mass ratio] 16.9 mg/mg 10-20 [facility] Work Phone: Laboratory - Hematology and Cell countson 11-12-2021 Erythrocyte distribution width (RBC) [Entitic vol] 41.8 fL 35.1-43.9 [facility] Work Phone: Erythrocyte distribution width (RBC) [Ratio] 12.8 % 11.6-14.6 [facility] Work Phone: Immature granulocytes/100 WBC (Bld) 0.400 % 0.0-0.9 [facility] Work Phone: Comment on above: IG% - Immature Granu locytes (promyelocytes, myelocytes and metamyelocytes) > 1% indicates that a LEFT SHIFT is Present. MCH (RBC) [Entitic mass] 30.9 pg 27.0-32.0 [facility] Work Phone: Nucleated RBC/100 WBC (Bld) [Ratio] 0 % 0-5 [facility] Work Phone: MCHC Auto (RBC) [Mass/Vol]on 11-12-2021 MCHC (RBC) [Mass/Vol] 34.5 g/dL 32-36 [facility] Work Phone: No Panel Informationon 11-12 Estimated GFR (MDRD) Amer 101 mL/min >60 [facility] Work Phone: Comment on above: GFR Calc Estimated GFR (MDRD) Non-Af Amer 84 mL/min >60 [facility] Work Phone: Comment on above: Non- GFR Calc Platelets bldon 11-12-2021 Platelets (Bld) [#/Vol] 194 10*3/uL 150-450 [facility] Work Phone: Serum or plasma calcium madi urement (mass/volume)on 11-12-2021 Calcium [Mass/Vol] 9.5 mg/dL 8.5-10.1 [facility] Work Phone: Serum or plasma creatinine m easurement (mass/volume)on 11-12-2021 Creatinine [Mass/Vol] 0.71 mg/dL 0.55-1.02 [facility] Work Phone: Comment on above: The validity of the calculated GFR & GFRAA in patients over 70 years has not been determined. Clinical correlation is essential. Serum or plasma urea nitroge n measurement (mass/volume)on 11-12-2021 Urea nitrogen [Mass/Vol] 12 mg/dL 7-18 [facility] Work Phone: Thin prep Papanicolaou smear with manual screeningon 11-12-2021 Thin prep Papanicolaou smear with manual screening 2 5-15 [facility] Work Phone: XR SPINE CERVICAL [...] Sign Date: 07/04/2019 10:22:47 AM Ordering Provider:Dc Bush [facility] ([place] .GFRon 06-09-2019 GFR >60 Normal [facility] ([place] Comment on above: Result Comment: GFR Population [...] #### C BC, DIFF, MORPH, BMP, GFR ####[place] [address] GFR Non- >60 Normal [facility] ([place] Comment on above: Result Comment: GFR Population [...] #### C BC, DIFF, MORPH, BMP, GFR ####[place] [address] .Manual Diffon 06-09-2019 Basophil %, Manual 1.0 % Normal 0.0-2.5 [facility] ([place]) Comment on above: Performed By: #### C BC, DIFF, MORPH, BMP, GFR ####[place] [address] Basophil, Abs Manual 0.08 10 3/mcL Normal 0.00-0.27 A [facility] ([place]) Comment on above: Performed By: #### C BC, DIFF, MORPH, BMP, GFR ####[place] [address] Cells Counted 100 Normal [facility] ([place] Comment on above: Performed By: #### C BC, DIFF, MORPH, BMP, GFR ####[place] [address] Eosinophil %, Manual 2.0 % Normal 0.0-6.0 [facility] ([place] Comment on above: Performed By: #### C BC, DIFF, MORPH, BMP, GFR ####[place] [address] Eosinophil, Abs Manual 0.16 10 3/mcL Normal 0.00-0.65 [facility] ([place] Comment on above: Performed By: #### C BC, DIFF, MORPH, BMP, GFR ####[address] [address] Lymphocyte %, Manual 9.0 % Low 20.0-40.0 [facility] ([place] Comment on above: Performed By: #### C BC, DIFF, MORPH, BMP, GFR ####[address] [address] Lymphocyte, Abs Manual 0.72 10 3/mcL Low 0.90-4.32 [facility] ([place] Comment on above: Performed By: #### C BC, DIFF, MORPH, BMP, GFR ####[address] [address] Monocyte %, Manual 6.0 % Normal 2.0-13.0 [facility] ([place] Comment on above: Performed By: #### C BC, DIFF, MORPH, BMP, GFR ####[address] [address] Monocyte, Abs Manual 0.48 10 3/mcL Normal 0.09-1.40 [facility] ([place]) Comment on above: Performed By: #### C BC, DIFF, MORPH, BMP, GFR ####[place] [address] Myelocyte 1.0 % Normal [facility] ([place] Comment on above: Performed By: #### C BC, DIFF, MORPH, BMP, GFR ####[address] [address] Neutrophil %, Manual 81.0 % High 50.0-75.0 [facility] ([place] Comment on above: Performed By: #### C BC, DIFF, MORPH, BMP, GFR ####[address] [address] Neutrophil, Abs Manual 6.48 10 3/mcL Normal 2.25-8.10 [facility] ([place] Comment on above: Performed By: #### C BC, DIFF, MORPH, BMP, GFR ####[place] [address] .Morphon 06-09-2019 Platelets (Bld) [#/Vol] Normal Normal [facility] ([place] Comment on above: Performed By: #### C BC, DIFF, MORPH, BMP, GFR ####[place] [id number] Polychrom Slight Normal [facility] ([place] Comment on above: Performed By: #### C BC, DIFF, MORPH, BMP, GFR ####[place] [address] BMPon 06-09-2019 Creatinine [Mass/Vol] 0.75 mg/dL Normal 0.50-1.20 [facility] ([place]) Comment on above: Performed By: #### C BC, DIFF, MORPH, BMP, GFR ####[place] [address] Urea nitrogen/Creatinine [Mass ratio] 18.7 ratio Normal 10.0-22.0 [facility] ([place] Comment on above: Performed By: #### C BC, DIFF, MORPH, BMP, GFR ####[place] [address] Calcium [Mass/Vol] 8.2 mg/dL Low 8.4-10.1 [facility] ([place] Comment on above: Performed By: #### C BC, DIFF, MORPH, BMP, GFR ####[place] [address] Chloride [Moles/Vol] 106 mmol/L Normal 98-110 [facility] ([place] Comment on above: Performed By: #### C BC, DIFF, MORPH, BMP, GFR ####[place] [address] CO2 [Moles/Vol] 18 mmol/L Low 22-32 [facility] ([place]) Comment on above: Performed By: #### C BC, DIFF, MORPH, BMP, GFR ####[place] [address] Electrolyte Balance 16.0 mEq/L High 4.0-15.0 [facility] ([place]) Comment on above: Performed By: #### C BC, DIFF, MORPH, BMP, GFR ####[address] [address] Glucose [Mass/Vol] 109 mg/dL Normal 82-115 [facility] ([place] Comment on above: Performed By: #### C BC, DIFF, MORPH, BMP, GFR ####[address] [address] Potassium [Moles/Vol] 3.8 mmol/L Normal 3.5-5.0 [facility] ([place]) Comment on above: Performed By: #### C BC, DIFF, MORPH, BMP, GFR ####[address] [address] Sodium [Moles/Vol] 140 mmol/L Normal 136-145 [facility] ([place] Comment on above: Performed By: #### C BC, DIFF, MORPH, BMP, GFR ####[address] [address] Urea nitrogen [Mass/Vol] 14.0 mg/dL Normal 8.0-22.0 [facility] ([place] Comment on above: Performed By: #### C BC, DIFF, MORPH, BMP, GFR ####[address] [address] CBCon 06-09-2019 Platelet mean volume (Bld) [Entitic vol] 8.6 fL Normal 6.6-10.5 [facility] ([place]) Comment on above: Performed By: #### C BC, DIFF, MORPH, BMP, GFR ####[address] [address] Platelets (Bld) [#/Vol] 229 10 3/mcL Normal 150-450 [facility] ([place] Comment on above: Performed By: #### C BC, DIFF, MORPH, BMP, GFR ####[address] [address] WBC (Bld) [#/Vol] 8.00 10 3/mcL Normal 4.50-10.80 [facility] ([place] Comment on above: Performed By: #### C BC, DIFF, MORPH, BMP, GFR ####[place] [id number] Erythrocyte distribution width (RBC) [Ratio] 13.8 % Normal 11.5-15.5 [facility] ([place] Comment on above: Performed By: #### C BC, DIFF, MORPH, BMP, GFR ####[place] [address] Hematocrit (Bld) [Volume fraction] 26.6 % Low 34.0-46.0 [facility] ([place] Comment on above: Performed By: #### C BC, DIFF, MORPH, BMP, GFR ####[place] [address] Hemoglobin (Bld) [Mass/Vol] 9.1 G/dL Low 12.0-16.0 [facility] ([place] Comment on above: Performed By: #### C BC, DIFF, MORPH, BMP, GFR ####[place] [address] MCH (RBC) [Entitic mass] 30.1 pg Normal 27.0-33.0 [facility] ([place] Comment on above: Performed By: #### C BC, DIFF, MORPH, BMP, GFR ####[place] [address] MCHC (RBC) [Mass/Vol] 34.3 G/dL Normal 32.0-36.0 [facility] ([place]) Comment on above: Performed By: #### C BC, DIFF, MORPH, BMP, GFR ####[place] [address] MCV (RBC) [Entitic vol] 87.9 fL Normal 80.0-99.0 [facility] ([place] Comment on above: Performed By: #### C BC, DIFF, MORPH, BMP, GFR ####[place] [address] RBC (Bld) [#/Vol] 3.03 10 6/mcL Low 4.10-5.30 [facility] ([place] Comment on above: Performed By: #### C BC, DIFF, MORPH, BMP, GFR ####[place] [address] XR CHEST 2 VIEWSon 9 XR CHEST [...] Sign Date: 06/09/2019 7:22:18 AM Normal [facility] ([place]) .GFRon 06-08-2019 GFR >60 Normal [facility] ([place] Comment on above: Result Comment: GFR Population [...] meters Performed By: #### B MP, GFR ####[place] [address] GFR Non- >60 Normal [facility] ([place] Comment on above: Result Comment: GFR Population [...] meters Performed By: #### B MP, GFR ####[address] [address] BMPon 06-08-2019 Creatinine [Mass/Vol] 0.60 mg/dL Normal 0.50-1.20 [facility] ([place]) Comment on above: Performed By: #### B MP, GFR ####[place] [address] Urea nitrogen/Creatinine [Mass ratio] 21.7 ratio Normal 10.0-22.0 [facility] ([place] Comment on above: Performed By: #### B MP, GFR ####[address] [address] Calcium [Mass/Vol] 7.9 mg/dL Low 8.4-10.1 [facility] ([place]) Comment on above: Performed By: #### B MP, GFR ####[place] [id number] Chloride [Moles/Vol] 107 mmol/L Normal 98-110 [facility] ([place] Comment on above: Performed By: #### B MP, GFR ####[address] [address] CO2 [Moles/Vol] 28 mmol/L Normal 22-32 [facility] ([place] Comment on above: Performed By: #### B MP, GFR ####[address] [address] Electrolyte Balance 8.0 mEq/L Normal 4.0-15.0 [facility] ([place] Comment on above: Performed By: #### B MP, GFR ####[address] [address] Glucose [Mass/Vol] 115 mg/dL Normal 82-115 [facility] ([place] Comment on above: Performed By: #### B MP, GFR ####[place] [id number] [address] [place] [address] Potassium [Moles/Vol] 3.7 mmol/L Normal 3.5-5.0 [facility] ([place]) Comment on above: Performed By: #### B MP, GFR ####[place] [id number] [address] [place] [address] Sodium [Moles/Vol] 143 mmol/L Normal 136-145 [facility] ([place] Comment on above: Performed By: #### B MP, GFR ####[address] [address] Urea nitrogen [Mass/Vol] 13.0 mg/dL Normal 8.0-22.0 [facility] ([place] Comment on above: Performed By: #### B MP, GFR ####[address] [address] XR CHEST 2 VIEWSon 9 XR CHEST [...] Sign Date: 06/08/2019 6:29:24 AM Normal [facility] ([place] .Auto Diffon 06-07-2019 Ammonia (P) [Mass/Vol] 0.40 10 3/mcL Normal 0.09-1.40 [facility] ([place] Comment on above: Performed By: #### C BC, ADIFF, ANEU, CMP, GFR ####[address] [address] Basophils (Bld) [#/Vol] 0.00 10 3/mcL Normal 0.00-0.27 [facility] ([place] Comment on above: Performed By: #### C BC, ADIFF, ANEU, CMP, GFR ####[address] [address] Basophils/100 WBC (Bld) 0.4 % Normal 0.0-2.5 [facility] [place] Comment on above: Performed By: #### C BC, ADIFF, ANEU, CMP, GFR ####[address] [address] Eosinophils (Bld) [#/Vol] 0.30 10 3/mcL Normal 0.00-0.65 [facility] ([place] Comment on above: Performed By: #### C BC, ADIFF, ANEU, CMP, GFR ####[address] [address] Eosinophils/100 WBC (Bld) 6.6 % High 0.0-6.0 [facility] ([place] Comment on above: Performed By: #### C BC, ADIFF, ANEU, CMP, GFR ####[address] [address] Lymphocytes (Bld) [#/Vol] 1.00 10 3/mcL Normal 0.90-4.32 [facility] ([place] Comment on above: Performed By: #### C BC, ADIFF, ANEU, CMP, GFR ####[address] [address] Lymphocytes/100 WBC (Bld) 19.0 % Low 20.0-40.0 [facility] ([place] Comment on above: Performed By: #### C BC, ADIFF, ANEU, CMP, GFR ####[address] [address] Monocytes/100 WBC (Bld) 7.4 % Normal 2.0-13.0 [facility] ([place] Comment on above: Performed By: #### C BC, ADIFF, ANEU, CMP, GFR ####[address] [address] Neutrophils/100 WBC (Bld) 66.6 % Normal 50.0-75.0 [facility] ([place] Comment on above: Performed By: #### C BC, ADIFF, ANEU, CMP, GFR ####[address] [address] Ammonia (P) [Mass/Vol] 0.50 10 3/mcL Normal 0.09-1.40 [facility] ([place] Comment on above: Performed By: #### C BC, ADIFF, ANEU, BMP, GFR ####[address] [address] Basophils (Bld) [#/Vol] 0.00 10 3/mcL Normal 0.00-0.27 [facility] ([place] Comment on above: Performed By: #### C BC, ADIFF, ANEU, BMP, GFR ####[address] [address] Basophils/100 WBC (Bld) 0.7 % Normal 0.0-2.5 [facility] ([place] Comment on above: Performed By: #### C BC, ADIFF, ANEU, BMP, GFR ####[address] [address] Eosinophils (Bld) [#/Vol] 0.10 10 3/mcL Normal 0.00-0.65 [facility] ([place] Comment on above: Performed By: #### C BC, ADIFF, ANEU, BMP, GFR ####[address] [address] Eosinophils/100 WBC (Bld) 1.8 % Normal 0.0-6.0 [facility] ([place] Comment on above: Performed By: #### C BC, ADIFF, ANEU, BMP, GFR ####[address] [address] Lymphocytes (Bld) [#/Vol] 2.10 10 3/mcL Normal 0.90-4.32 [facility] ([place] Comment on above: Performed By: #### C BC, ADIFF, ANEU, BMP, GFR ####[address] [address] Lymphocytes/100 WBC (Bld) 32.8 % Normal 20.0-40.0 [facility] ([place]) Comment on above: Performed By: #### C BC, ADIFF, ANEU, BMP, GFR ####[address] [address] Monocytes/100 WBC (Bld) 7.1 % Normal 2.0-13.0 [facility] ([place]) Comment on above: Performed By: #### C BC, ADIFF, ANEU, BMP, GFR ####[address] [address] Neutrophils/100 WBC (Bld) 57.6 % Normal 50.0-75.0 [facility] ([place]) Comment on above: Performed By: #### C BC, ADIFF, ANEU, BMP, GFR ####[address] [address] Ammonia (P) [Mass/Vol] 0.60 10 3/mcL Normal 0.09-1.40 [facility] ([place] Comment on above: Performed By: #### C BC, ADIFF, ANEU #### [place] [address] #### BMP, GFR #### [address] [address] Basophils (Bld) [#/Vol] 0.00 10 3/mcL Normal 0.00-0.27 [facility] [place] Comment on above: Performed By: #### C BC ADIFF, ANEU #### [place] [address] #### BMP, GFR #### [address] [address] Basophils/100 WBC (Bld) 0.5 % Normal 0.0-2.5 [facility] ([place] Comment on above: Performed By: #### C BC, ADIFF, ANEU #### [place] [address] #### BMP, GFR #### [address] [address] Eosinophils (Bld) [#/Vol] 0.10 10 3/mcL Normal 0.00-0.65 [facility] ([place] Comment on above: Performed By: #### C BC, ADIFF, ANEU #### [address] [address] #### BMP, GFR #### [address] [address] Eosinophils/100 WBC (Bld) 2.2 % Normal 0.0-6.0 [facility] ([place]) Comment on above: Performed By: #### C BC, ADIFF, ANEU #### [address] [address] #### BMP, GFR #### [address] [address] Lymphocytes (Bld) [#/Vol] 0.80 10 3/mcL Low 0.90-4.32 [facility] ([place]) Comment on above: Performed By: #### C BC, ADIFF, ANEU #### [place] [address] #### BMP, GFR #### [address] [address] Lymphocytes/100 WBC (Bld) 12.3 % Low 20.0-40.0 [facility] ([place]) Comment on above: Performed By: #### C BC, ADIFF, ANEU #### [place] [address] #### BMP, GFR #### [address] [address] Monocytes/100 WBC (Bld) 9.5 % Normal 2.0-13.0 [facility] ([place] Comment on above: Performed By: #### C BC, ADIFF, ANEU #### [place] [address] #### BMP, GFR #### [address] [address] Neutrophils/100 WBC (Bld) 75.5 % High 50.0-75.0 [facility] ([place]) Comment on above: Performed By: #### C BC, ADIFF, ANEU #### [facility] [address] [place], [place] [address] #### BMP, GFR #### [facility] [address] [place] [address] .GFRon 06-07-2019 GFR >60 Normal [facility] ([place] Comment on above: Result Comment: GFR Population [...] #### C BC, ADIFF, ANEU, CMP, GFR ####[place] [id number] [address] [place] [address] GFR Non- >60 Normal [facility] ([place] Comment on above: Result Comment: GFR Population [...] #### C BC, ADIFF, ANEU, CMP, GFR ####[place] [id number] [address] [place] [address] GFR >60 Normal [facility] ([place] Comment on above: Result Comment: GFR Population [...] #### C BC, ADIFF, ANEU, BMP, GFR ####[address] [address] GFR Non- >60 Normal [facility] ([place] Comment on above: Result Comment: GFR Population [...] #### C BC, ADIFF, ANEU, BMP, GFR ####[address] [address] GFR Non- >60 Normal [facility] ([place] Comment on above: Result Comment: GFR Population [...] #### C BC, ADIFF, ANEU, BMP, GFR ####[address] [address] GFR >60 Normal [facility] ([place] Comment on above: Result Comment: GFR Population [...] #### C BC, ADIFF, ANEU, BMP, GFR ####[place] [address] .NEUABSon 06-07-2019 Neutrophils (Bld) [#/Vol] 3.40 10 3/mcL Normal 2.25-8.10 [facility] ([place] Comment on above: Performed By: #### C BC, ADIFF, ANEU, CMP, GFR ####[address] [address] Neutrophils (Bld) [#/Vol] 3.80 10 3/mcL Normal 2.25-8.10 [facility] ([place] Comment on above: Performed By: #### C BC, ADIFF, ANEU, BMP, GFR ####[address] [address] Neutrophils (Bld) [#/Vol] 5.00 10 3/mcL Normal 2.25-8.10 [facility] ([place] Comment on above: Performed By: #### Lio BC, ADIFF, ANEU #### [address] [address] #### BMP, GFR #### [address] [address] BMPon 06-07-2019 Creatinine [Mass/Vol] 0.66 mg/dL Normal 0.50-1.20 [facility] ([place]) Comment on above: Performed By: #### C BC, ADIFF, ANEU, BMP, GFR ####[place] [address] Urea nitrogen/Creatinine [Mass ratio] 16.7 ratio Normal 10.0-22.0 [facility] ([place] Comment on above: Performed By: #### C BC, ADIFF, ANEU, BMP, GFR ####[place] [address] Calcium [Mass/Vol] 7.8 mg/dL Low 8.4-10.1 [facility] ([place]) Comment on above: Performed By: #### C BC, ADIFF, ANEU, BMP, GFR ####[place] [address] Chloride [Moles/Vol] 106 mmol/L Normal 98-110 [facility] ([place] Comment on above: Performed By: #### C BC, ADIFF, ANEU, BMP, GFR ####[place] [address] CO2 [Moles/Vol] 26 mmol/L Normal 22-32 [facility] ([place] Comment on above: Performed By: #### C BC, ADIFF, ANEU, BMP, GFR ####[address] [address] Electrolyte Balance 9.0 mEq/L Normal 4.0-15.0 [facility] ([place]) Comment on above: Performed By: #### C BC, ADIFF, ANEU, BMP, GFR ####[address] [address] Glucose [Mass/Vol] 101 mg/dL Normal 82-115 [facility] ([place] Comment on above: Performed By: #### C BC, ADIFF, ANEU, BMP, GFR ####[address] [address] Potassium [Moles/Vol] 3.6 mmol/L Normal 3.5-5.0 [facility] ([place]) Comment on above: Performed By: #### C BC, ADIFF, ANEU, BMP, GFR ####[address] [address] Sodium [Moles/Vol] 141 mmol/L Normal 136-145 [facility] ([place] Comment on above: Performed By: #### C BC, ADIFF, ANEU, BMP, GFR ####[address] [address] Urea nitrogen [Mass/Vol] 11.0 mg/dL Normal 8.0-22.0 [facility] ([place] Comment on above: Performed By: #### C BC, ADIFF, ANEU, BMP, GFR ####[address] [address] Calcium [Mass/Vol] 8.4 mg/dL Normal 8.4-10.1 [facility] ([place]) Comment on above: Performed By: #### C BC, ADIFF, ANEU, BMP, GFR ####[place] [address] Chloride [Moles/Vol] 106 mmol/L Normal 98-110 [facility] ([place] Comment on above: Performed By: #### C BC, ADIFF, ANEU, BMP, GFR ####[address] [address] CO2 [Moles/Vol] 25 mmol/L Normal 22-32 [facility] ([place]) Comment on above: Performed By: #### C BC, ADIFF, ANEU, BMP, GFR ####[address] [address] Creatinine [Mass/Vol] 0.73 mg/dL Normal 0.50-1.20 [facility] ([place]) Comment on above: Performed By: #### C BC, ADIFF, ANEU, BMP, GFR ####[address] [address] Electrolyte Balance 9.0 mEq/L Normal 4.0-15.0 [facility] ([place]) Comment on above: Performed By: #### C BC, ADIFF, ANEU, BMP, GFR ####[address] [address] Glucose [Mass/Vol] 230 mg/dL High 82-115 [facility] ([place]) Comment on above: Performed By: #### C BC, ADIFF, ANEU, BMP, GFR ####[address] [address] Potassium [Moles/Vol] 3.8 mmol/L Normal 3.5-5.0 [facility] ([place]) Comment on above: Performed By: #### C BC, ADIFF, ANEU, BMP, GFR ####[place] [address] Sodium [Moles/Vol] 140 mmol/L Normal 136-145 [facility] ([place]) Comment on above: Performed By: #### C BC, ADIFF, ANEU, BMP, GFR ####[place] [address] Urea nitrogen [Mass/Vol] 16.0 mg/dL Normal 8.0-22.0 [facility] ([place] Comment on above: Performed By: #### C BC, ADIFF, ANEU, BMP, GFR ####[address] [address] Urea nitrogen/Creatinine [Mass ratio] 21.9 ratio Normal 10.0-22.0 [facility] ([place] Comment on above: Performed By: #### C BC, ADIFF, ANEU, BMP, GFR ####[address] [address] CBCon 06-07-2019 Erythrocyte distribution width (RBC) [Ratio] 12.5 % Normal 11.5-15.5 [facility] ([place] Comment on above: Performed By: #### C BC, ADIFF, ANEU, CMP, GFR ####[address] [address] Hematocrit (Bld) [Volume fraction] 35.3 % Low 40.0-52.0 [facility] ([place] Comment on above: Performed By: #### C BC, ADIFF, ANEU, CMP, GFR ####[address] [address] Hemoglobin (Bld) [Mass/Vol] 12.0 G/dL Low 13.0-17.5 [facility] ([place] Comment on above: Performed By: #### C BC, ADIFF, ANEU, CMP, GFR ####[place] [id number] MCH (RBC) [Entitic mass] 32.0 pg Normal 27.0-33.0 [facility] ([place] Comment on above: Performed By: #### C BC, ADIFF, ANEU, CMP, GFR ####[place] [address] MCHC (RBC) [Mass/Vol] 34.1 G/dL Normal 32.0-36.0 [facility] ([place]) Comment on above: Performed By: #### C BC, ADIFF, ANEU, CMP, GFR ####[place] [address] MCV (RBC) [Entitic vol] 94.1 fL Normal 81.0-100.0 [facility] ([place]) Comment on above: Performed By: #### C BC, ADIFF, ANEU, CMP, GFR ####[address] [address] Platelet mean volume (Bld) [Entitic vol] 6.9 fL Normal 6.4-10.5 [facility] ([place]) Comment on above: Performed By: #### C BC, ADIFF, ANEU, CMP, GFR ####[address] [address] Platelets (Bld) [#/Vol] 109 10 3/mcL Low 150-450 [facility] ([place] Comment on above: Performed By: #### C BC, ADIFF, ANEU, CMP, GFR ####[place] [id number] RBC (Bld) [#/Vol] 3.76 10 6/mcL Low 4.50-6.00 [facility] ([place]) Comment on above: Performed By: #### C BC, ADIFF, ANEU, CMP, GFR ####[place] [id number] WBC (Bld) [#/Vol] 5.00 10 3/mcL Normal 4.50-10.80 [facility] ([place]) Comment on above: Performed By: #### C BC, ADIFF, ANEU, CMP, GFR ####[place] [id number] Erythrocyte distribution width (RBC) [Ratio] 13.6 % Normal 11.5-15.5 [facility] ([place] Comment on above: Performed By: #### C BC, ADIFF, ANEU, BMP, GFR ####[place] [address] Hematocrit (Bld) [Volume fraction] 28.1 % Low 34.0-46.0 [facility] ([place] Comment on above: Performed By: #### C BC, ADIFF, ANEU, BMP, GFR ####[place] [address] Hemoglobin (Bld) [Mass/Vol] 9.4 G/dL Low 12.0-16.0 [facility] ([place] Comment on above: Performed By: #### C BC, ADIFF, ANEU, BMP, GFR ####[place] [address] MCH (RBC) [Entitic mass] 32.4 pg Normal 27.0-33.0 [facility] ([place] Comment on above: Performed By: #### C BC, ADIFF, ANEU, BMP, GFR ####[place] [address] MCHC (RBC) [Mass/Vol] 33.5 G/dL Normal 32.0-36.0 [facility] ([place]) Comment on above: Performed By: #### C BC, ADIFF, ANEU, BMP, GFR ####[place] [address] MCV (RBC) [Entitic vol] 96.7 fL Normal 80.0-99.0 [facility] ([place]) Comment on above: Performed By: #### C BC, ADIFF, ANEU, BMP, GFR ####[address] [address] Platelet mean volume (Bld) [Entitic vol] 7.5 fL Normal 6.6-10.5 [facility] ([place]) Comment on above: Performed By: #### C BC, ADIFF, ANEU, BMP, GFR ####[address] [address] Platelets (Bld) [#/Vol] 257 10 3/mcL Normal 150-450 [facility] ([place] Comment on above: Performed By: #### C BC, ADIFF, ANEU, BMP, GFR ####[address] [address] RBC (Bld) [#/Vol] 2.90 10 6/mcL Low 4.10-5.30 [facility] ([place]) Comment on above: Performed By: #### C BC, ADIFF, ANEU, BMP, GFR ####[address] [address] WBC (Bld) [#/Vol] 6.50 10 3/mcL Normal 4.50-10.80 [facility] ([place]) Comment on above: Performed By: #### C BC, ADIFF, ANEU, BMP, GFR ####[address] [address] Erythrocyte distribution width (RBC) [Ratio] 13.8 % Normal 11.5-15.5 [facility] ([place]) Comment on above: Performed By: #### C BC, ADIFF, ANEU #### [address] [address] #### BMP, GFR #### [address] [address] Hematocrit (Bld) [Volume fraction] 27.4 % Low 34.0-46.0 [facility] ([place] Comment on above: Performed By: #### C BC, ADIFF, ANEU #### [address] [address] #### BMP, GFR #### [address] [address] Hemoglobin (Bld) [Mass/Vol] 9.4 G/dL Low 12.0-16.0 [facility] ([place] Comment on above: Performed By: #### C BC, ADIFF, ANEU #### [address] [address] #### BMP, GFR #### [address] [address] MCH (RBC) [Entitic mass] 30.3 pg Normal 27.0-33.0 [facility] ([place] Comment on above: Performed By: #### C BC, ADIFF, ANEU #### [place] [address] #### BMP, GFR #### [address] [address] MCHC (RBC) [Mass/Vol] 34.4 G/dL Normal 32.0-36.0 [facility] ([place]) Comment on above: Performed By: #### C BC, ADIFF, ANEU #### [place] [address] #### BMP, GFR #### [address] [address] MCV (RBC) [Entitic vol] 88.2 fL Normal 80.0-99.0 [facility] ([place] Comment on above: Performed By: #### C BC, ADIFF, ANEU #### [place] [address] #### BMP, GFR #### [address] [address] Platelet mean volume (Bld) [Entitic vol] 8.1 fL Normal 6.6-10.5 [facility] ([place]) Comment on above: Performed By: #### C BC, ADIFF, ANEU #### [address] [address] #### BMP, GFR #### [address] [address] Platelets (Bld) [#/Vol] 188 10 3/mcL Normal 150-450 [facility] ([place] Comment on above: Performed By: #### C BC, ADIFF, ANEU #### [address] [address] #### BMP, GFR #### [place] [address] RBC (Bld) [#/Vol] 3.11 10 6/mcL Low 4.10-5.30 [facility] ([place] Comment on above: Performed By: #### C BC, ADIFF, ANEU #### [address] [address] #### BMP, GFR #### [place] [address] WBC (Bld) [#/Vol] 6.70 10 3/mcL Normal 4.50-10.80 [facility] ([place] Comment on above: Performed By: #### C BC, ADIFF, ANEU #### [address] [address] #### BMP, GFR #### [place] [address] CMPon 06-07-2019 Albumin/Globulin [Mass ratio] 0.8 {ratio} Low 0.9-1.6 [facility] ([place] Comment on above: Performed By: #### C BC, ADIFF, ANEU, CMP, GFR ####[place] [address] ALP [Catalytic activity/Vol] 47 U/L Normal 38-126 [facility] ([place] Comment on above: Performed By: #### C BC, ADIFF, ANEU, CMP, GFR ####[place] [address] Bili Total 0.5 mg/dL Normal 0.2-1.2 [facility] ([place] Comment on above: Performed By: #### C BC, ADIFF, ANEU, CMP, GFR ####[address] [place] [address] Creatinine [Mass/Vol] 0.66 mg/dL Normal 0.60-1.40 [facility] ([place]) Comment on above: Performed By: #### C BC, ADIFF, ANEU, CMP, GFR ####[address] [address] Globulin (S) [Mass/Vol] 2.7 G/dL Normal 1.5-3.8 [facility] ([place] Comment on above: Performed By: #### C BC, ADIFF, ANEU, CMP, GFR ####[address] [address] Protein [Mass/Vol] 4.8 G/dL Low 6.0-8.5 [facility] ([place]) Comment on above: Performed By: #### C BC, ADIFF, ANEU, CMP, GFR ####[address] [address] Urea nitrogen/Creatinine [Mass ratio] 4.5 ratio Low 10.0-22.0 [facility] ([place] Comment on above: Performed By: #### C BC, ADIFF, ANEU, CMP, GFR ####[address] [address] Albumin [Mass/Vol] 2.1 G/dL Low 3.2-4.8 [facility] ([place]) Comment on above: Performed By: #### C BC, ADIFF, ANEU, CMP, GFR ####[address] [address] ALT [Catalytic activity/Vol] 16 U/L Normal 12-55 [facility] ([place] Comment on above: Performed By: #### C BC, ADIFF, ANEU, CMP, GFR ####[address] [address] AST [Catalytic activity/Vol] 11 U/L Normal 8-34 [facility] ([place] Comment on above: Performed By: #### C BC, ADIFF, ANEU, CMP, GFR ####[address] [address] Calcium [Mass/Vol] 7.8 mg/dL Low 8.4-10.1 [facility] ([place]) Comment on above: Performed By: #### C BC, ADIFF, ANEU, CMP, GFR ####[address] [address] Chloride [Moles/Vol] 113 mmol/L High 98-110 [facility] ([place] Comment on above: Performed By: #### C BC, ADIFF, ANEU, CMP, GFR ####[address] [address] CO2 [Moles/Vol] 30 mmol/L Normal 22-32 [facility] ([place]) Comment on above: Performed By: #### C BC, ADIFF, ANEU, CMP, GFR ####[address] [address] Electrolyte Balance 5.0 mEq/L Normal 4.0-15.0 [facility] ([place]) Comment on above: Performed By: #### C BC, ADIFF, ANEU, CMP, GFR ####[address] [address] Glucose [Mass/Vol] 124 mg/dL High 70-110 [facility] ([place]) Comment on above: Performed By: #### C BC, ADIFF, ANEU, CMP, GFR ####[address] [address] Potassium [Moles/Vol] 3.7 mmol/L Normal 3.5-5.0 [facility] ([place]) Comment on above: Performed By: #### C BC, ADIFF, ANEU, CMP, GFR ####[address] [address] Sodium [Moles/Vol] 148 mmol/L High 136-145 [facility] ([place]) Comment on above: Performed By: #### C BC, ADIFF, ANEU, CMP, GFR ####[address] [address] Urea nitrogen [Mass/Vol] 3.0 mg/dL Low 8.0-22.0 [facility] ([place] Comment on above: Performed By: #### C BC, ADIFF, ANEU, CMP, GFR ####[facility] [place] [address] HHon 06-07-2019 Hematocrit (Bld) [Volume fraction] 27.4 % Low 34.0-46.0 [facility] ([place] Comment on above: Performed By: #### H H ####[address] [address] Hemoglobin (Bld) [Mass/Vol] 9.6 G/dL Low 12.0-16.0 [facility] ([place] Comment on above: Performed By: #### H H ####[address] [address] XR CHEST 1 VIEWon 06-07-2019 XR CHEST [...] Sign Date: 06/07/2019 7:43:21 AM Normal [facility] ([place]) .Auto Diffon 06-06-2019 Ammonia (P) [Mass/Vol] 0.70 10 3/mcL Normal 0.09-1.40 [facility] ([place] Comment on above: Performed By: #### C STEPHANIE KRISHNAMURTHY ANEU #### [address] [address] #### BMP, GFR #### [address] [address] Basophils (Bld) [#/Vol] 0.00 10 3/mcL Normal 0.00-0.27 [facility] ([place] Comment on above: Performed By: #### C BCSTEPHANIE ANEU #### [address] [address] #### BMP, GFR #### [address] [address] Basophils/100 WBC (Bld) 0.4 % Normal 0.0-2.5 [facility] ([place] Comment on above: Performed By: #### C BC, ADIFF, ANEU #### [address] [address] #### BMP, GFR #### [address] [address] Eosinophils (Bld) [#/Vol] 0.10 10 3/mcL Normal 0.00-0.65 [facility] ([place]) Comment on above: Performed By: #### C BC, ADIFF, ANEU #### [place] [address] #### BMP, GFR #### [address] [address] Eosinophils/100 WBC (Bld) 0.8 % Normal 0.0-6.0 [facility] ([place] Comment on above: Performed By: #### C BC, ADIFF, ANEU #### [place] [address] #### BMP, GFR #### [address] [address] Lymphocytes (Bld) [#/Vol] 0.70 10 3/mcL Low 0.90-4.32 [facility] ([place] Comment on above: Performed By: #### C BC, ADIFF, ANEU #### [place] [address] #### BMP, GFR #### [address] [address] Lymphocytes/100 WBC (Bld) 9.2 % Low 20.0-40.0 [facility] ([place] Comment on above: Performed By: #### C BC, ADIFF, ANEU #### [place] [address] #### BMP, GFR #### [address] [address] Monocytes/100 WBC (Bld) 9.6 % Normal 2.0-13.0 [facility] ([place] Comment on above: Performed By: #### C BC, ADIFF, ANEU #### [place] [address] [address] #### BMP, GFR #### [address] [address] Neutrophils/100 WBC (Bld) 80.0 % High 50.0-75.0 [facility] ([place] Comment on above: Performed By: #### C BC, ADIFF, ANEU #### [address] [address] #### BMP, GFR #### [address] [address] .GFRon 06-06-2019 GFR Non- >60 Normal [facility] ([place] Comment on above: Result Comment: GFR Population [...] By: #### C BC, ADIFF, ANEU #### [place] [address] [address] #### BMP, GFR #### [address] [address] GFR >60 Normal [facility] ([place] Comment on above: Result Comment: GFR Population [...] By: #### C BC, ADIFF, ANEU #### [place] [address] #### BMP, GFR #### [address] [address] .NEUABSon 06-06-2019 Neutrophils (Bld) [#/Vol] 6.20 10 3/mcL Normal 2.25-8.10 [facility] ([place] Comment on above: Performed By: #### C BCBRYANIFF, ANEU #### [place] [address] #### BMP, GFR #### [place] [address] BMPon 06-06-2019 Calcium [Mass/Vol] 8.0 mg/dL Low 8.4-10.1 [facility] ([place] Comment on above: Performed By: #### C BCBRYANIFF, ANEU #### [place] [id number] #### BMP, GFR #### [place] [id number] Chloride [Moles/Vol] 104 mmol/L Normal 98-110 [facility] ([place] Comment on above: Performed By: #### C BC, ADIFF, ANEU #### [place] [address] #### BMP, GFR #### [place] [id number] CO2 [Moles/Vol] 26 mmol/L Normal 22-32 [facility] ([place] Comment on above: Performed By: #### C BC, ADIFF, ANEU #### [address] [address] #### BMP, GFR #### [address] [address] Creatinine [Mass/Vol] 0.66 mg/dL Normal 0.50-1.20 [facility] ([place]) Comment on above: Performed By: #### C BC, ADIFF, ANEU #### [address] [address] #### BMP, GFR #### [address] [address] Electrolyte Balance 10.0 mEq/L Normal 4.0-15.0 [facility] ([place]) Comment on above: Performed By: #### C BC, ADIFF, ANEU #### [place] [address] #### BMP, GFR #### [address] [address] Glucose [Mass/Vol] 104 mg/dL Normal 82-115 [facility] ([place]) Comment on above: Performed By: #### C BC, ADIFF, ANEU #### [place] [address] #### BMP, GFR #### [address] [address] Potassium [Moles/Vol] 3.2 mmol/L Low 3.5-5.0 [facility] ([place]) Comment on above: Performed By: #### C BC, ADIFF, ANEU #### [place] [address] #### BMP, GFR #### [address] [address] Sodium [Moles/Vol] 140 mmol/L Normal 136-145 [facility] ([place]) Comment on above: Performed By: #### C BC, ADIFF, ANEU #### [address] [address] #### BMP, GFR #### [address] [address] Urea nitrogen [Mass/Vol] 10.0 mg/dL Normal 8.0-22.0 [facility] [facility] ([place]) Comment on above: Performed By: #### C STEPHANIE KRISHNAMURTHY, ANEU #### [place] [address] #### BMP, GFR #### [address] [address] Urea nitrogen/Creatinine [Mass ratio] 15.2 ratio Normal 10.0-22.0 [facility] ([place]) Comment on above: Performed By: #### C BRYAN KRISHNAMURTHYIFF, ANEU #### [place] [address] #### BMP, GFR #### [place] [address] CBCon 06-06-2019 Erythrocyte distribution width (RBC) [Ratio] 13.6 % Normal 11.5-15.5 [facility] ([place]) Comment on above: Performed By: #### C STEPHANIE KRISHNAMURTHY, ANEU #### [place] [address] #### BMP, GFR #### [place] [address] Hematocrit (Bld) [Volume fraction] 27.0 % Low 34.0-46.0 [facility] ([place]) Comment on above: Performed By: #### C STEPHANIE KRISHNAMURTHY, ANEU #### [place] [address] #### BMP, GFR #### [place] [address] Hemoglobin (Bld) [Mass/Vol] 9.2 G/dL Low 12.0-16.0 [facility] ([place]) Comment on above: Performed By: #### C BRYAN KRISHNAMURTHYIFF, ANEU #### [place] [address] #### BMP, GFR #### [place] [address] MCH (RBC) [Entitic mass] 30.0 pg Normal 27.0-33.0 [facility] ([place]) Comment on above: Performed By: #### C BC, ADIFF, ANEU #### [place] [address] #### BMP, GFR #### [address] [address] MCHC (RBC) [Mass/Vol] 34.1 G/dL Normal 32.0-36.0 [facility] ([place]) Comment on above: Performed By: #### C BC, ADIFF, ANEU #### [place] [address] #### BMP, GFR #### [place] [address] MCV (RBC) [Entitic vol] 88.0 fL Normal 80.0-99.0 [facility] ([place]) Comment on above: Performed By: #### C BC, ADIFF, ANEU #### [place] [address] #### BMP, GFR #### [place] [address] Platelet mean volume (Bld) [Entitic vol] 8.2 fL Normal 6.6-10.5 [facility] ([place]) Comment on above: Performed By: #### C BC, ADIFF, ANEU #### [place] [address] #### BMP, GFR #### [place] [id number] Platelets (Bld) [#/Vol] 155 10 3/mcL Normal 150-450 [facility] ([place]) Comment on above: Performed By: #### C BC, ADIFF, ANEU #### [place] [address] #### BMP, GFR #### [place] [id number] RBC (Bld) [#/Vol] 3.07 10 6/mcL Low 4.10-5.30 [facility] ([place]) Comment on above: Performed By: #### C BC, ADIFF, ANEU #### [address] [address] #### BMP, GFR #### [address] [address] WBC (Bld) [#/Vol] 7.70 10 3/mcL Normal 4.50-10.80 [facility] ([place]) Comment on above: Performed By: #### C STEPHANIE KRISHNAMURTHY, ANEU #### [address] [address] #### BMP, GFR #### [address] [address] XR CHEST 1 VIEWon 06-06-2019 XR CHEST [...] Sign Date: 06/06/2019 6:40:06 AM Normal [facility] ([place]) .Auto Diffon 06-05-2019 Ammonia (P) [Mass/Vol] 1.20 10 3/mcL Normal 0.09-1.40 [facility] ([place]) Comment on above: Performed By: #### C STEPHANIE KRISHNAMURTHY, ANEU #### [address] [address] #### BMP, GFR #### [address] [address] Basophils (Bld) [#/Vol] 0.00 10 3/mcL Normal 0.00-0.27 [facility] ([place]) Comment on above: Performed By: #### C BC, ADIFF, ANEU #### [address] [address] #### BMP, GFR #### [address] [address] Basophils/100 WBC (Bld) 0.4 % Normal 0.0-2.5 [facility] ([place]) Comment on above: Performed By: #### C BC, ADIFF, ANEU #### [address] [address] #### BMP, GFR #### [address] [address] Eosinophils (Bld) [#/Vol] 0.10 10 3/mcL Normal 0.00-0.65 [facility] ([place]) Comment on above: Performed By: #### C BC, ADIFF, ANEU #### [address] [address] #### BMP, GFR #### [address] [address] Eosinophils/100 WBC (Bld) 0.6 % Normal 0.0-6.0 [facility] ([place]) Comment on above: Performed By: #### C BC, ADIFF, ANEU #### [place] [id number] #### BMP, GFR #### [address] [address] Lymphocytes (Bld) [#/Vol] 1.10 10 3/mcL Normal 0.90-4.32 [facility] ([place]) Comment on above: Performed By: #### C BC, ADIFF, ANEU #### [address] [address] #### BMP, GFR #### [address] [address] Lymphocytes/100 WBC (Bld) 9.5 % Low 20.0-40.0 [facility] ([place]) Comment on above: Performed By: #### C BC, ADIFF, ANEU #### [place] [id number] #### BMP, GFR #### [address] [address] Monocytes/100 WBC (Bld) 9.9 % Normal 2.0-13.0 [facility] ([place]) Comment on above: Performed By: #### C BC, ADIFF, ANEU #### [address] [address] #### BMP, GFR #### [address] [address] Neutrophils/100 WBC (Bld) 79.6 % High 50.0-75.0 [facility] ([place]) Comment on above: Performed By: #### C BC, ADIFF, ANEU #### [address] [address] #### BMP, GFR #### [address] [address] .GFRon 06-05-2019 GFR >60 Normal [facility] ([place]) Comment on above: Result Comment: GFR Population [...] By: #### C BC, ADIFF, ANEU #### [address] [address] #### BMP, GFR #### [address] [address] GFR Non- >60 Normal [facility] ([place]) Comment on above: Result Comment: GFR Population [...] mL/min/1.73 square meters Performed By: #### C STEPHANIE KRISHNAMURTHY, ANEU #### [place] [address] #### BMP, GFR #### [place] [address] .Morphon 06-05-2019 Platelets (Bld) [#/Vol] Slt Decreased Normal [facility] ([place] Comment on above: Performed By: #### STEPHANIE JOHNSON, ANEU #### [place] [address] #### BMP, GFR #### [place] [address] RBC morphology finding Nom (Bld) Normal Normal [facility] ([place] Comment on above: Performed By: #### STEPHANIE JOHNSON, ANEU #### [place] [address] #### BMP, GFR #### [place] [address] .NEUABSon 06-05-2019 Neutrophils (Bld) [#/Vol] 9.30 10 3/mcL High 2.25-8.10 [facility] ([place]) Comment on above: Performed By: #### C STEPHANIE KRISHNAMURTHY, ANEU #### [place] [address] #### BMP, GFR #### [place] [address] BMPon 06-05-2019 Calcium [Mass/Vol] 8.2 mg/dL Low 8.4-10.1 [facility] ([place]) Comment on above: Performed By: #### C BC, ADIFF, ANEU #### [address] [address] #### BMP, GFR #### [address] [address] CO2 [Moles/Vol] 23 mmol/L Normal 22-32 [facility] ([place]) Comment on above: Performed By: #### C BC, ADIFF, ANEU #### [address] [address] #### BMP, GFR #### [address] [address] Creatinine [Mass/Vol] 0.65 mg/dL Normal 0.50-1.20 [facility] ([place]) Comment on above: Performed By: #### C BC, ADIFF, ANEU #### [address] [address] #### BMP, GFR #### [address] [address] Electrolyte Balance 11.0 mEq/L Normal 4.0-15.0 [facility] ([place]) Comment on above: Performed By: #### C BC, ADIFF, ANEU #### [address] [address] #### BMP, GFR #### [address] [address] Glucose [Mass/Vol] 114 mg/dL Normal 82-115 [facility] ([place]) Comment on above: Performed By: #### C BC, ADIFF, ANEU #### [address] [address] #### BMP, GFR #### [address] [address] Potassium [Moles/Vol] 4.2 mmol/L Normal 3.5-5.0 [facility] ([place]) Comment on above: Performed By: #### C BC, ADIFF, ANEU #### [address] [address] #### BMP, GFR #### [address] [address] Urea nitrogen [Mass/Vol] 9.0 mg/dL Normal 8.0-22.0 [facility] ([place] Comment on above: Performed By: #### C STEPHANIE KRISHNAMURTHY, ANEU #### [address] [address] #### BMP, GFR #### [address] [address] Urea nitrogen/Creatinine [Mass ratio] 13.8 ratio Normal 10.0-22.0 [facility] ([place]) Comment on above: Performed By: #### C BCSTEPHANIE, ANEU #### [address] [address] #### BMP, GFR #### [address] [address] Chloride [Moles/Vol] 107 mmol/L Normal 98-110 [facility] ([place]) Comment on above: Performed By: #### C STEPHANIE KRISHNAMURTHY, ANEU #### [address] [address] #### BMP, GFR #### [address] [address] Sodium [Moles/Vol] 141 mmol/L Normal 136-145 [facility] ([place]) Comment on above: Performed By: #### C STEPHANIE KRISHNAMURTHY, ANEU #### [place] [address] #### BMP, GFR #### [address] [address] CBCon 06-05-2019 Platelet mean volume (Bld) [Entitic vol] 9.1 fL Normal 6.6-10.5 [facility] ([place]) Comment on above: Performed By: #### C STEPHANIE KRISHNAMURTHY, ANEU #### [address] [address] #### BMP, GFR #### [address] [address] Platelets (Bld) [#/Vol] 143 10 3/mcL Low 150-450 [facility] ([place] Comment on above: Performed By: #### C BC, ADIFF, ANEU #### [address] [address] #### BMP, GFR #### [address] [address] Erythrocyte distribution width (RBC) [Ratio] 14.0 % Normal 11.5-15.5 [facility] ([place] Comment on above: Performed By: #### C BC, ADIFF, ANEU #### [address] [address] #### BMP, GFR #### [address] [address] Hematocrit (Bld) [Volume fraction] 30.7 % Low 34.0-46.0 [facility] ([place] Comment on above: Performed By: #### C BC, ADIFF, ANEU #### [place] [address] #### BMP, GFR #### [address] [address] Hemoglobin (Bld) [Mass/Vol] 10.7 G/dL Low 12.0-16.0 [facility] ([place] Comment on above: Performed By: #### C BC, ADIFF, ANEU #### [place] [address] #### BMP, GFR #### [address] [address] MCH (RBC) [Entitic mass] 30.4 pg Normal 27.0-33.0 [facility] ([place] Comment on above: Performed By: #### C BC, ADIFF, ANEU #### [place] [address] #### BMP, GFR #### [address] [address] MCHC (RBC) [Mass/Vol] 34.8 G/dL Normal 32.0-36.0 [facility] ([place]) Comment on above: Performed By: #### C BC, ADIFF, ANEU #### [address] [address] #### BMP, GFR #### [address] [address] MCV (RBC) [Entitic vol] 87.6 fL Normal 80.0-99.0 [facility] ([place] Comment on above: Performed By: #### C BC, ADIFF, ANEU #### [place] [address] #### BMP, GFR #### [place] [address] RBC (Bld) [#/Vol] 3.50 10 6/mcL Low 4.10-5.30 [facility] ([place]) Comment on above: Performed By: #### C BC, ADIFF, ANEU #### [place] [address] #### BMP, GFR #### [place] [address] WBC (Bld) [#/Vol] 11.60 10 3/mcL High 4.50-10.80 [facility] ([place]) Comment on above: Performed By: #### C BC ADIFF, ANEU #### [place] [address] #### BMP, GFR #### [place] [address] XR CHEST 1 VIEWon 06-05-2019 XR CHEST [...] Sign Date: 06/05/2019 7:45:20 AM Normal [facility] ([place]) XR CHEST 1 VIEW ORIGINAL PORTABLE UPRIGHT [...] Sign Date: 06/04/2019 11:53:30 PM Normal [facility] ([place]) .Auto Diffon 06-04-2019 Ammonia (P) [Mass/Vol] 0.90 10 3/mcL Normal 0.09-1.40 [facility] ([place]) Comment on above: Performed By: #### C STEPHANIE KRISHNAMURTHY ANEU #### [address] [address] #### BMP, GFR #### [address] [address] Basophils (Bld) [#/Vol] 0.00 10 3/mcL Normal 0.00-0.27 [facility] ([place]) Comment on above: Performed By: #### C STEPHANIE KRISHNAMURTHY ANEU #### [address] [address] #### BMP, GFR #### [address] [address] Basophils/100 WBC (Bld) 0.3 % Normal 0.0-2.5 [facility] ([place]) Comment on above: Performed By: #### C BC, ADIFF, ANEU #### [place] [address] #### BMP, GFR #### [address] [address] Eosinophils (Bld) [#/Vol] 0.00 10 3/mcL Normal 0.00-0.65 [facility] ([place]) Comment on above: Performed By: #### C BC, ADIFF, ANEU #### [place] [address] #### BMP, GFR #### [address] [address] Eosinophils/100 WBC (Bld) 0.1 % Normal 0.0-6.0 [facility] ([place]) Comment on above: Performed By: #### C BC, ADIFF, ANEU #### [place] [address] #### BMP, GFR #### [address] [address] Lymphocytes (Bld) [#/Vol] 0.90 10 3/mcL Normal 0.90-4.32 [facility] ([place] Comment on above: Performed By: #### C BC, ADIFF, ANEU #### [place] [address] #### BMP, GFR #### [address] [address] Lymphocytes/100 WBC (Bld) 10.3 % Low 20.0-40.0 [facility] ([place]) Comment on above: Performed By: #### C BC, ADIFF, ANEU #### [place] [address] #### BMP, GFR #### [address] [address] Monocytes/100 WBC (Bld) 9.5 % Normal 2.0-13.0 [facility] ([place] Comment on above: Performed By: #### C BC, ADIFF, ANEU #### [address] [address] #### BMP, GFR #### [address] [address] Neutrophils/100 WBC (Bld) 79.8 % High 50.0-75.0 [facility] ([place] Comment on above: Performed By: #### C BC, ADIFF, ANEU #### [address] [address] #### BMP, GFR #### [address] [address] .GFRon 06-04-2019 GFR >60 Normal [facility] ([place]) Comment on above: Result Comment: GFR Population [...] By: #### C BC, ADIFF, ANEU #### [address] [address] #### BMP, GFR #### [address] [address] GFR Non- >60 Normal [facility] ([place]) Comment on above: Result Comment: GFR Population [...] mL/min/1.73 square meters Performed By: #### C BC ADIFF, ANEU #### [place] [address] #### BMP, GFR #### [address] [address] .NEUABSon 06-04-2019 Neutrophils (Bld) [#/Vol] 7.20 10 3/mcL Normal 2.25-8.10 [facility] ([place]) Comment on above: Performed By: #### C STEPHANIE KRISHNAMURTHY, ANEU #### [place] [address] #### BMP, GFR #### [address] [address] BMPon 06-04-2019 Calcium [Mass/Vol] 8.8 mg/dL Normal 8.4-10.1 [facility] ([place]) Comment on above: Performed By: #### C BRYAN KRISHNAMURTHYIFF, ANEU #### [place] [address] #### BMP, GFR #### [address] [address] Chloride [Moles/Vol] 109 mmol/L Normal 98-110 [facility] ([place]) Comment on above: Performed By: #### C BRYAN KRISHNAMURTHYIFF, ANEU #### [place] [address] #### BMP, GFR #### [address] [address] CO2 [Moles/Vol] 25 mmol/L Normal 22-32 [facility] ([place]) Comment on above: Performed By: #### C BC, ADIFF, ANEU #### [place] [address] #### BMP, GFR #### [address] [address] Creatinine [Mass/Vol] 0.82 mg/dL Normal 0.50-1.20 [facility] ([place]) Comment on above: Performed By: #### C BC, ADIFF, ANEU #### [address] [address] #### BMP, GFR #### [address] [address] Electrolyte Balance 8.0 mEq/L Normal 4.0-15.0 [facility] ([place]) Comment on above: Performed By: #### C BC, ADIFF, ANEU #### [address] [address] #### BMP, GFR #### [address] [address] Glucose [Mass/Vol] 132 mg/dL High 82-115 [facility] ([place]) Comment on above: Performed By: #### C BC, ADIFF, ANEU #### [place] [address] #### BMP, GFR #### [address] [address] Potassium [Moles/Vol] 4.3 mmol/L Normal 3.5-5.0 [facility] ([place]) Comment on above: Performed By: #### C BC, ADIFF, ANEU #### [address] [address] #### BMP, GFR #### [address] [address] Sodium [Moles/Vol] 142 mmol/L Normal 136-145 [facility] ([place]) Comment on above: Performed By: #### C BC, ADIFF, ANEU #### [place] [address] #### BMP, GFR #### [address] [address] Urea nitrogen [Mass/Vol] 12.0 mg/dL Normal 8.0-22.0 [facility] ([place] Comment on above: Performed By: #### C BC, ADIFF, ANEU #### [place] [address] [place], [place] [address] #### BMP, GFR #### [address] [address] Urea nitrogen/Creatinine [Mass ratio] 14.6 ratio Normal 10.0-22.0 [facility] ([place]) Comment on above: Performed By: #### C BC, ADIFF, ANEU #### [address] [address] #### BMP, GFR #### [address] [address] CBCon 06-04-2019 Erythrocyte distribution width (RBC) [Ratio] 14.0 % Normal 11.5-15.5 [facility] ([place]) Comment on above: Performed By: #### C BC, ADIFF, ANEU #### [place] [address] #### BMP, GFR #### [place] [address] Hematocrit (Bld) [Volume fraction] 38.5 % Normal 34.0-46.0 [facility] ([place]) Comment on above: Performed By: #### C BC, ADIFF, ANEU #### [place] [address] #### BMP, GFR #### [address] [address] Hemoglobin (Bld) [Mass/Vol] 13.0 G/dL Normal 12.0-16.0 [facility] ([place]) Comment on above: Performed By: #### C BC, ADIFF, ANEU #### [address] [address] #### BMP, GFR #### [address] [address] MCH (RBC) [Entitic mass] 30.1 pg Normal 27.0-33.0 [facility] ([place]) Comment on above: Performed By: #### C BC, ADIFF, ANEU #### [place] [address] #### BMP, GFR #### [address] [address] MCHC (RBC) [Mass/Vol] 33.7 G/dL Normal 32.0-36.0 [facility] ([place]) Comment on above: Performed By: #### C BC, ADIFF, ANEU #### [address] [address] #### BMP, GFR #### [address] [address] MCV (RBC) [Entitic vol] 89.5 fL Normal 80.0-99.0 [facility] ([place] Comment on above: Performed By: #### C BC, ADIFF, ANEU #### [place] [address] #### BMP, GFR #### [address] [address] Platelet mean volume (Bld) [Entitic vol] 7.6 fL Normal 6.6-10.5 [facility] ([place]) Comment on above: Performed By: #### C BC, ADIFF, ANEU #### [place] [address] #### BMP, GFR #### [address] [address] Platelets (Bld) [#/Vol] 197 10 3/mcL Normal 150-450 [facility] ([place] Comment on above: Performed By: #### C BC, ADIFF, ANEU #### [place] [id number] #### BMP, GFR #### [address] [address] RBC (Bld) [#/Vol] 4.31 10 6/mcL Normal 4.10-5.30 [facility] ([place]) Comment on above: Performed By: #### C BC, ADIFF, ANEU #### [address] [address] #### BMP, GFR #### [address] [address] WBC (Bld) [#/Vol] 9.00 10 3/mcL Normal 4.50-10.80 [facility] ([place]) Comment on above: Performed By: #### C BC, ADYAMILEX, ANEU #### [facility] [address] [place], [place] [address] #### BMP, GFR #### [address] [address] [address] ANKLE W/O CONTRAST RIGHTo n 06-04-2019 [...] Sign Date: 06/04/2019 12:03:00 AM Normal [facility] ([place]) CT WRIST W/O CONTRAST RIGHTo n 06-04-2019 [...] Sign Date: 06/04/2019 12:04:55 AM Normal [facility] ([place]) PROon 06-04-2019 INR Coag (PPP) [Relative time] 1.0 {INR} Normal [facility] ([place]) Comment on above: Result Comment: The [employer] (CHEST, 1992, [id number]) recommended therapeutic range for oral anticoagulant therapy is: LOW RISK: Prophylaxis of venous thrombosis INR: 2.0-3.0 Treatment of pulmonary embolism 2.0-3.0 Prevention of systemic embolism 2.0-3.0 HIGH RISK: Mechanical prosthetic valves 2.5-3.5 Performed By: #### C BC, ADIFF, ANEU #### [facility] [address] [place], [place] [address] #### BMP, GFR #### [address] [address] PT Coag (PPP) [Time] 12.0 s Normal 9.0-14.6 [facility] ([place]) Comment on above: Result Comment: Effe ctive 03/28/08, Protime results may be affected by some antibiotics (i.e. Ciprofloxacin, Azithromycin, Bactrim) which may potentiate the action of oral anticoagulants, with further increases in Protime/INR. Performed By: #### C BC, ADIFF, ANEU #### [address] [address] #### BMP, GFR #### [place] [address] TABOon 06-04-2019 ABO/Rh Interp Negative [facility] ([place]) Comment on above: Performed By: #### C BC, ADIFF, ANEU #### [address] [address] #### BMP, GFR #### [place] [address] TABSon 06-04-2019 Antibody Screen Tango Negative Normal [facility] ([place]) Comment on above: Performed By: #### C BC, ADIFF, ANEU #### [place] [address] #### BMP, GFR #### [place] [address] XR CHEST 1 VIEWon 06-04-2019 XR CHEST [...] Sign Date: 06/04/2019 5:25:45 AM Normal [facility] ([place]) XR FLUORO < 1HR TECH TIMEon 06-04-2019 XR FLUORO < 1HR TECH TIME ORIGINAL Intraoperative fluoroscopy and image intensifier views of the right ankle Clinical Statement: rt ankle fx, internal fixation Comparison: Radiographs 06/03/2019 FINDINGS: Technical Details: Tech Time - < 1hr\\[id number]\\1120-2p total for both ; C-Arm # - 7; Total Dose - .85mGy; Images - 6; Infrastructure Manager - nmk; History - rt ankle fx, [...] Sign Date: 06/04/2019 3:30:03 PM Normal [facility] ([place]) XR FLUORO 1-2 HRS TECH TIMEo n 06-04-2019 XR FLUORO 1-2 HRS TECH TIME ORIGINAL Intraoperative fluoroscopy and image intensifier views of the right wrist Clinical Statement: rt wrist fx, internal fixation Comparison: 06/03/2019 FINDINGS: Technical Details: Tech Time - 1120-2p total for both exams; C-Arm # - 7; Total Dose - 1.71mGy; Images - 5; Infrastructure Manager - nmk; History - rt wrist fx; [...] Sign Date: 06/04/2019 3:36:44 PM Normal [facility] ([place]) XR HAND MINIMUM 3 VIEWS LEFT on [...] Sign Date: 06/04/2019 9:53:38 AM Normal [facility] ([place]) .Auto Diffon 06-03-2019 Ammonia (P) [Mass/Vol] 0.60 10 3/mcL Normal 0.15-1.00 [facility] ([place]) Comment on above: Performed By: #### C STEPHANIE KRISHNAMURTHY, ANEU #### [place] [address] #### BMP, GFR #### [address] [address] Basophils (Bld) [#/Vol] 0.00 10 3/mcL Normal 0.00-0.19 [facility] ([place]) Comment on above: Performed By: #### C STEPHANIE KRISHNAMURTHY, ANEU #### [place] [address] #### BMP, GFR #### [address] [address] Basophils/100 WBC (Bld) 0.4 % Normal 0.0-2.5 [facility] ([place]) Comment on above: Performed By: #### C STEPHAINE KRISHNAMURTHY, ANEU #### [place] [address] #### BMP, GFR #### [address] [address] Eosinophils (Bld) [#/Vol] 0.10 10 3/mcL Normal 0.00-0.40 [facility] ([place] Comment on above: Performed By: #### C BCBRYANIFF, ANEU #### [place] [address] #### BMP, GFR #### [address] [address] Eosinophils/100 WBC (Bld) 1.0 % Normal 0.0-7.0 [facility] ([place] Comment on above: Performed By: #### C BCBRYANIFF, ANEU #### [place] [address] #### BMP, GFR #### [address] [address] Lymphocytes (Bld) [#/Vol] 1.20 10 3/mcL Normal 0.77-3.85 [facility] ([place]) Comment on above: Performed By: #### C BC, ADIFF, ANEU #### [address] [address] #### BMP, GFR #### [address] [address] Lymphocytes/100 WBC (Bld) 12.6 % Normal 10.0-50.0 [facility] ([place]) Comment on above: Performed By: #### C BC, ADIFF, ANEU #### [address] [address] #### BMP, GFR #### [address] [address] Monocytes/100 WBC (Bld) 6.3 % Normal 1.7-13.0 [facility] ([place]) Comment on above: Performed By: #### C BC, ADIFF, ANEU #### [address] [address] #### BMP, GFR #### [address] [address] Neutrophils/100 WBC (Bld) 79.7 % Normal 37.0-80.0 [facility] ([place]) Comment on above: Performed By: #### C BC, ADIFF, ANEU #### [place] [address] #### BMP, GFR #### [address] [address] .GFRon 06-03-2019 GFR 78 ml/min/1.73sqm Normal [facility] ([place]) Comment on above: Result Comment: GFR [...] Performed By: #### C BCSTEPHANIE, ANEU #### [address] [address] #### BMP, GFR #### [address] [address] GFR Non- 64 ml/min/1.73sqm Normal [facility] ([place] Comment on above: Result Comment: GFR Population [...] mL/min/1.73 square meters Performed By: #### C STEPHANIE KRISHNAMURTHY, ANEU #### [address] [address] #### BMP, GFR #### [address] [address] .NEUABSon 06-03-2019 Neutrophils (Bld) [#/Vol] 7.90 10 3/mcL High 2.85-6.16 [facility] ([place] Comment on above: Performed By: #### C BCSTEPHANIE, ANEU #### [address] [address] #### BMP, GFR #### [address] [address] BMPon 06-03-2019 Calcium [Mass/Vol] 9.2 mg/dL Normal 8.4-10.2 [facility] ([place]) Comment on above: Performed By: #### C BC, ADIFF, ANEU #### [address] [address] #### BMP, GFR #### [address] [address] Chloride [Moles/Vol] 104 mmol/L Normal 98-107 [facility] ([place]) Comment on above: Performed By: #### C BC, ADIFF, ANEU #### [address] [address] #### BMP, GFR #### [address] [address] CO2 [Moles/Vol] 30 mmol/L Normal 23-31 [facility] ([place]) Comment on above: Performed By: #### C BC, ADIFF, ANEU #### [address] [address] #### BMP, GFR #### [address] [address] Creatinine [Mass/Vol] 0.85 mg/dL Normal 0.55-1.02 [facility] ([place]) Comment on above: Performed By: #### C BC, ADIFF, ANEU #### [address] [address] #### BMP, GFR #### [address] [address] Electrolyte Balance 9.0 mEq/L Normal [facility] ([place]) Comment on above: Performed By: #### C BC, ADIFF, ANEU #### [address] [address] #### BMP, GFR #### [address] [address] Glucose [Mass/Vol] 135 mg/dL High 83-110 [facility] ([place]) Comment on above: Performed By: #### C BC, ADIFF, ANEU #### [address] [address] #### BMP, GFR #### [address] [address] Potassium [Moles/Vol] 4.1 mmol/L Normal 3.5-5.1 [facility] ([place]) Comment on above: Performed By: #### C BC, ADIFF, ANEU #### [address] [address] #### BMP, GFR #### [address] [address] Sodium [Moles/Vol] 143 mmol/L Normal 136-145 [facility] ([place]) Comment on above: Performed By: #### C BC, ADIFF, ANEU #### [address] [address] #### BMP, GFR #### [address] [address] Urea nitrogen [Mass/Vol] 14 mg/dL Normal 7-18 [facility] ([place]) Comment on above: Performed By: #### C BC, ADIFF, ANEU #### [address] [address] #### BMP, GFR #### [address] [address] Urea nitrogen/Creatinine [Mass ratio] 16 ratio Normal 7-27 [facility] ([place]) Comment on above: Performed By: #### C BC, ADIFF, ANEU #### [place] [address] #### BMP, GFR #### [address] [address] CBCon 06-03-2019 Erythrocyte distribution width (RBC) [Ratio] 14.3 % Normal 11.5-14.5 [facility] ([place]) Comment on above: Performed By: #### C BC, ADIFF, ANEU #### [address] [address] #### BMP, GFR #### [address] [address] Hematocrit (Bld) [Volume fraction] 38.5 % Normal 37.0-47.0 [facility] ([place]) Comment on above: Performed By: #### C STEPHANIE KRIHSNAMURTHY, ANEU #### [address] [address] #### BMP, GFR #### [place] [address] Hemoglobin (Bld) [Mass/Vol] 13.0 G/dL Normal 12.0-16.0 [facility] ([place]) Comment on above: Performed By: #### C STEPHANIE KRISHNAMURTHY, ANEU #### [address] [address] #### BMP, GFR #### [place] [address] MCH (RBC) [Entitic mass] 30.0 pg Normal 27.0-31.2 [facility] ([place]) Comment on above: Performed By: #### C STEPHANIE KRISHNAMURTHY, ANEU #### [place] [address] #### BMP, GFR #### [place] [address] MCHC (RBC) [Mass/Vol] 33.8 G/dL Normal 33.0-37.0 [facility] ([place]) Comment on above: Performed By: #### C STEPHANIE KRISHNAMURTHY, ANEU #### [place] [address] #### BMP, GFR #### [place] [address] MCV (RBC) [Entitic vol] 88.6 fL Normal 80.0-94.0 [facility] ([place]) Comment on above: Performed By: #### STEPHANIE JOHNSON, ANEU #### [place] [address] #### BMP, GFR #### [place] [address] Platelet mean volume (Bld) [Entitic vol] 8.1 fL Normal 7.4-10.4 [facility] ([place]) Comment on above: Performed By: #### C BC, ADIFF, ANEU #### [address] [address] #### BMP, GFR #### [address] [address] Platelets (Bld) [#/Vol] 221 10 3/mcL Normal 130-400 [facility] ([place]) Comment on above: Performed By: #### C BC, ADIFF, ANEU #### [address] [address] #### BMP, GFR #### [address] [address] RBC (Bld) [#/Vol] 4.35 10 6/mcL Normal 4.20-5.40 [facility] ([place]) Comment on above: Performed By: #### C BC, ADIFF, ANEU #### [address] [address] #### BMP, GFR #### [address] [address] WBC (Bld) [#/Vol] 9.90 10 3/mcL Normal 4.60-10.80 [facility] ([place]) Comment on above: Performed By: #### C BC, ADIFF, ANEU #### [address] [address] #### BMP, GFR #### [address] [address] [address] ABD/PELVIS W/ IV CONTRAST ONLYon 06-03-2019 [...] Sign Date: 06/03/2019 4:57:41 PM Normal [facility] ([place]) CT HEAD OR BRAIN W/O CONTRAS Ton [...] Sign Date: 06/03/2019 4:10:32 PM Normal [facility] ([place]) CT SPINE CERVICAL W/O CONTRA STon 06-03-2019 [...] Sign Date: 06/03/2019 4:35:12 PM Normal [facility] ([place]) CT THORAX W/ CONTRASTon 05-16 CT THORAX [...] Sign Date: 06/03/2019 4:53:52 PM Normal [facility] ([place]) XR ANKLE AND FOOT 6 VIEWS RI Ton 06-03-2019 XR ANKLE AND FOOT 6 VIEWS [...] Sign Date: 06/03/2019 3:45:45 PM Normal [facility] ([place]) XR ANKLE MINIMUM 3 VIEWS RIG HTon [...] Sign Date: 06/03/2019 7:11:45 PM Normal [facility] ([place]) XR CHEST 1 VIEWon 06-03-2019 XR CHEST [...] Sign Date: 06/03/2019 6:20:15 PM Normal [facility] ([place]) XR CHEST 1 VIEW ORIGINAL XR CHEST [...] Sign Date: 06/03/2019 3:47:37 PM Normal [facility] ([place]) XR FOREARM 2 VIEWS RIGHTon 0 06-03-2019 [...] Sign Date: 06/03/2019 7:13:59 PM Normal [facility] ([place]) XR KNEE THREE VIEWS RIGHTon 06-03-2019 XR [...] Sign Date: 06/03/2019 7:12:24 PM Normal [facility] ([place]) XR PELVIS 1 OR 2 VIEWSon XR [...] Sign Date: 06/03/2019 3:58:51 PM Normal [facility] ([place]) XR WRIST TWO VIEWS RIGHTon 0 06-03-2019 [...] Sign Date: 06/03/2019 3:56:05 PM Normal [facility] ([place]) C-REACTIVE PROTEIN ([id number])Or dered By: Lpn Rn Hospice on 10-15-2017 CRP mass conc 1.0 mg/L Normal 0.0-4.9 Comprehensi Internal Medicine Work Phone: Comment on above: PATIENT NOT FASTINGP ERFORMED BY: Percello[address] [facility] HospitalOwlrYad[facility] [id number] CBC (AUTO) ([id number])Ordered By : Lpn Rn Hospice on 10-15-2017 Erythrocyte distribution width Ratio (RBC) 13.8 % Normal 12.3-15.4 [facility] Work Phone: Comment on above: PATIENT NOT FASTINGP ERFORMED BY: Percello6370 RodriguezCox MonettOwlrYadkin Valley Community Hospital [id number] Hematocrit Volume Fraction (Bld) 40.2 % Normal 34.0-46.6 [facility] Work Phone: Comment on above: PATIENT NOT FASTINGP ERFORMED BY: Percello6370 [facility] [id number] Hemoglobin mass conc (Bld) 13.4 g/dL Normal 11.1-15.9 [facility] Work Phone: Comment on above: PATIENT NOT FASTINGP ERFORMED BY: ORTIZ [facility] Xrzdja0335 Rodriguez RoadDublin [place] [id number] MCH Entitic mass (RBC) 29.8 pg Normal 26.6-33.0 Co [facility] Internal Medicine Work Phone: Comment on above: PATIENT NOT FASTINGP ERFORMED BY: CB [facility] Nvjjkm2802 Rodriguez RoadDublin [place] [id number] MCHC mass conc (RBC) 33.3 g/dL Normal 31.5-35.7 [facility] Internal Medicine Work Phone: Comment on above: PATIENT NOT FASTINGP ERFORMED BY: CB [facility] Iudodg4707 [address] RoadDublin [place] [id number] MCV Entitic volume (RBC) 90 fL Normal 79-[address] [facility] Internal Medicine Work Phone: Comment on above: PATIENT NOT FASTINGP ERFORMED BY: CB [facility] Imigdm5967 Rodriguez RoadAtrium Health Carolinas Rehabilitation Charlottein [place] [id number] Platelets #/vol (Bld) 211 {x10E3/uL} Normal 150-[address] [facility] Internal Medicine Work Phone: Comment on above: PATIENT NOT FASTINGP ERFORMED BY: CB [facility] Drrakg0175 Rodriguez RoadAtrium Health Carol[facility] Rehabilitation Charlottein [place] [id number] RBC #/vol (Bld) 4.49 {x10E6/uL} Normal 3.77-5.28 [facility] Internal Medicine Work Phone: Comment on above: PATIENT NOT FASTINGP ERFORMED BY: CB [facility] Lfwfms6487 [address] Roadblin [place] [id number] WBC #/vol (Bld) 4.9 {x10E3/uL} Normal 3.4-10.8 [facility] Internal Medicine Work Phone: Comment on above: PATIENT NOT FASTINGP ERFORMED BY: CB [facility] Citgxq[address] [facility] HospitalDublin [place] [id number] METABOLIC PANEL, COMPREHENSI VE ([id number])Ordered By: Lpn Rn Hospice on 10-15-2017 Albumin mass conc 3.9 g/dL Normal 3.5-4.8 Compreh ensive Internal Medicine Work Phone: Comment on above: PATIENT NOT FASTINGP ERFORMED BY: ORTIZ Crowelin[address] [facility] [place] [id number] Albumin/Globulin mass ratio 1.6 {ratio} Normal 1.2-2.2 [facility] Work Phone: Comment on above: PATIENT NOT FASTINGP ERFORMED BY: ORTIZ Crowelin[address] [facility] [id number] ALP enzyme act/vol 78 [iU]/L Normal 39-117 Compre [facility] Internal Medicine Work Phone: Comment on above: PATIENT NOT FASTINGP ERFORMED BY: ORTIZ Crowelin[address] [facility] [id number] ALT enzyme act/vol 18 [iU]/L Normal 0-32 [facility] Internal [facility] Work Phone: Comment on above: PATIENT NOT FASTINGP ERFORMED BY: ORTIZ Nilda Crowelin[address] [facility] [id number] AST enzyme act/vol 25 [iU]/L Normal 0-40 [facility] Internal Medicine Work Phone: Comment on above: PATIENT NOT FASTINGP ERFORMED BY: ORTIZ Nilda Crowelin6370 [facility] [id number] Bilirubin mass conc 0.4 mg/dL Normal 0.0-1.2 Compr [facility] Internal Medicine Work Phone: Comment on above: PATIENT NOT FASTINGP ERFORMED BY: ORTIZ HouMeadowview Psychiatric HospitalRytktd5208 [facility] [id number] Calcium mass conc 9.5 mg/dL Normal 8.7-10.3 Compreh page hospitalive Internal Medicine Work Phone: Comment on above: PATIENT NOT FASTINGP ERFORMED BY: ORTIZ Crowelin6370 [facility] [id number] Chloride molar conc 102 mmol/L Normal 96-106 Compr ensive Internal Medicine Work Phone: Comment on above: PATIENT NOT FASTINGP ERFORMED BY: Ameya Dxaddk[address] [facility] [id number] CO2 molar conc 27 mmol/L Normal 18-29 Comprehens trupti Internal Medicine Work Phone: Comment on above: PATIENT NOT FASTINGP ERFORMED BY: ORTIZ Crowelin[address] [facility] [id number] Creatinine mass conc 0.88 mg/dL Normal 0.57-1.00 Comp rehensive Internal Medicine Work Phone: Comment on above: PATIENT NOT FASTINGP ERFORMED BY: [facility]Saint [facility] Bzkult6018 [facility] [id number] GFR/1.73 sq M predicted among blacks CKD-EPI vol rate/area (S/P/Bld) 73 mL/min/1.73 Normal [facility] Work Phone: Comment on above: PATIENT NOT FASTINGP ERFORMED BY: [facility] Cjcjlh8513 [facility] [id number] GFR/1.73 sq M predicted among non-blacks CKD-EPI vol rate/area (S/P/Bld) 63 mL/min/1.73 Normal Comprehensiv e Internal Medicine Work Phone: Comment on above: PATIENT NOT FASTINGP ERFORMED BY: Ameya Dhhldo0679 [facility] [id number] Globulin mass conc (S) 2.4 g/dL Normal 1.5-4.5 Co mprehensive Internal Medicine Work Phone: Comment on above: PATIENT NOT FASTINGP ERFORMED BY: LabSaint [facility] Gnsnij3625 [facility] [id number] Glucose mass conc 87 mg/dL Normal 65-99 Compreh ensive Internal Medicine Work Phone: Comment on above: PATIENT NOT FASTINGP ERFORMED BY: ORTIZ Hou Osckwk6432 [facility] [id number] Potassium molar conc 4.8 mmol/L Normal 3.5-5.2 Comp rehensive Internal Medicine Work Phone: Comment on above: PATIENT NOT FASTINGP ERFORMED BY: ORTIZ Chester[address] [facility] [place] [id number] Protein mass conc 6.3 g/dL Normal 6.0-8.5 Compreh ensive Internal Medicine Work Phone: Comment on above: PATIENT NOT FASTINGP ERFORMED BY: ORTIZ Chester[address] [facility] [place] [id number] Sodium molar conc 143 mmol/L Normal 134-144 Compreh ensive Internal Medicine Work Phone: Comment on above: PATIENT NOT FASTINGP ERFORMED BY: ORTIZ Crowelin[address] [facility] [place] [id number] Urea nitrogen mass conc 10 mg/dL Normal 8- [facility] Work Phone: Comment on above: PATIENT NOT FASTINGP ERFORMED BY: ORTIZ Chester6370 [facility] [id number] Urea nitrogen/Creatinine mass ratio 11 mg/mg Abnormal 12- [facility] Work Phone: Comment on above: PATIENT NOT FASTINGP ERFORMED BY: ORTIZ Hou Gfmgtx2017 [facility] [place] [place] [id number] SED RATE ERYTHROCYTE ([id number]) Ordered By: Lpn Rn Hospice on 10-15-2017 ESR Velocity (Bld) 2 mm/h Normal 0-40 Compre hensive Internal Medicine Work Phone: Comment on above: PATIENT NOT FASTINGP ERFORMED BY: ORTIZ Hou Guqjqe2099 [facility] [place] [place] [id number] CBC W/AUTO DIFF WBC ([id number])O rdered By: Lpn Rn Hospice on 09-01-2017 Basophils #/vol (Bld) 0.0 {x10E3/uL} Normal 0.0-0.2 [facility] Work Phone: Comment on above: PATIENT WAS FASTINGP ERFORMED BY: ORTIZ Hou Tqzoeu7128 [address] Roadblin [place] [id number] Basophils/100 WBC (Bld) 0 % Normal [facility] Work Phone: Comment on above: PATIENT WAS FASTINGP ERFORMED BY: ORTIZ Munguia Heiznf5621 [address] RoadDublin [place] [id number] Eosinophils #/vol (Bld) 0.1 {x10E3/uL} Normal 0.0-0.4 [facility] Work Phone: Comment on above: PATIENT WAS FASTINGP ERFORMED BY: ORTIZ [facility] Ojntuo0575 [address] RoadDublin [place] [id number] Eosinophils/100 WBC (Bld) 1 % Normal [facility] Work Phone: Comment on above: PATIENT WAS FASTINGP ERFORMED BY: ORTIZ [facility] Kvwruh4337 [address] Roadblin [place] [id number] Erythrocyte distribution width Ratio (RBC) 13.8 % Normal 12.3-15.4 [facility] Work Phone: Comment on above: PATIENT WAS FASTINGP ERFORMED BY: OTRIZ [employer] Llzuqs4369 Rodriguez RoadAtrium Health [facility] Rehabilitation Charlottein [place] [id number] Hematocrit Volume Fraction (Bld) 40.2 % Normal 34.0-46.6 [facility] Work Phone: Comment on above: PATIENT WAS FASTINGP ERFORMED BY: ORTIZ LabSaint [facility] Hxcwsq6[address] [facility]in [place] [id number] Hemoglobin mass conc (Bld) 13.2 g/dL Normal 11.1-15.9 [facility] Work Phone: Comment on above: PATIENT WAS FASTINGP ERFORMED BY: ORTIZ LabSaint [facility] Bvmxyq9704 [address] Roadblin [place] [id number] Immature granulocytes #/vol (Bld) 0.0 {x10E3/uL} Normal 0.0-0.1 [facility] Work Phone: Comment on above: PATIENT WAS FASTINGP ERFORMED BY: [facility] Jipyyi9528 [address] RoadDublin [place] [id number] Immature granulocytes/100 WBC (Bld) 0 % Normal [facility] Work Phone: Comment on above: PATIENT WAS FASTINGP ERFORMED BY: ORTIZ [facility] Cntrcw5392 [address] RoadDublin [place] [id number] Lymphocytes #/vol (Bld) 1.3 {x10E3/uL} Normal 0.7-3.1 [facility] Work Phone: Comment on above: PATIENT WAS FASTINGP ERFORMED BY: ORTIZ [facility] Zchoxc14[address] [facility]bl[facility] [place] [id number] Lymphocytes/100 WBC (Bld) 29 % Normal [facility] Work Phone: Comment on above: PATIENT WAS FASTINGP ERFORMED BY: ORTIZ [facility] Bwglot47[address] [facility] [place] [id number] MCH Entitic mass (RBC) 29.5 pg Normal 26.6-33.0 [facility] Internal Medicine Work Phone: Comment on above: PATIENT WAS FASTINGP ERFORMED BY: ORTIZ [facility] Lqbvbd8972 [address] [facility] [id number] MCHC mass conc (RBC) 32.8 g/dL Normal 31.5-35.7 [facility] Internal Medicine Work Phone: Comment on above: PATIENT WAS FASTINGP ERFORMED BY: ORTIZ [facility] Ykybqt4931 [address] [facility] [place] [id number] MCV Entitic volume (RBC) 90 fL Normal 79-97 [facility] Work Phone: Comment on above: PATIENT WAS FASTINGP ERFORMED BY: ORTIZ [facility] Faznge0501 [address] [facility] [id number] Monocytes #/vol (Bld) 0.4 {x10E3/uL} Normal 0.1-0.9 [facility] Work Phone: Comment on above: PATIENT WAS FASTINGP ERFORMED BY: [facility] Eysoyy8712 [address] [facility]in [place] [id number] Monocytes/100 WBC (Bld) 9 % Normal [facility] Work Phone: Comment on above: PATIENT WAS FASTINGP ERFORMED BY: ORTIZ [facility] Avjwtr9734 [address] [facility]bl[facility] [place] [id number] Neutrophils #/vol (Bld) 2.7 {x10E3/uL} Normal 1.4-7.0 [facility] Work Phone: Comment on above: PATIENT WAS FASTINGP ERFORMED BY: ORTIZ LabCoaustyn Gwozdi3566 [address] RoadDublin [place] [id number] Neutrophils/100 WBC (Bld) 61 % Normal [facility] Work Phone: Comment on above: PATIENT WAS FASTINGP ERFORMED BY: ORTIZ [facility] Ixfwpg1392 [address] RoadDublin [place] [id number] Platelets #/vol (Bld) 198 {x10E3/uL} Normal 150-379 [facility] Work Phone: Comment on above: PATIENT WAS FASTINGP ERFORMED BY: ORTIZ [facility] Xflbbe1481 [address] RoadDublin [place] [id number] RBC #/vol (Bld) 4.47 {x10E6/uL} Normal 3.77-5.28 [facility] Internal Medicine Work Phone: Comment on above: PATIENT WAS FASTINGP ERFORMED BY: ORTIZ [facility] Coltey7590 [address] RoadDublin [place] [id number] WBC #/vol (Bld) 4.5 {x10E3/uL} Normal 3.4-10.8 [facility] Internal Medicine Work Phone: Comment on above: PATIENT WAS FASTINGP ERFORMED BY: ORTIZ [facility] Ivwhug[address] [facility] HospitalDublin [place] [id number] LIPID PANEL ([id number])Ordered B y: Lpn Rn Hospice on 09-01-2017 Cholesterol in HDL mass conc 59 mg/dL Normal [facility] Work Phone: Comment on above: PATIENT WAS FASTINGP ERFORMED BY: ORTIZ [facility] Nohkok1396 [address] RoadDublin [place] [id number] Cholesterol in LDL mass conc 72 mg/dL Normal 0-99 [facility] Work Phone: Comment on above: PATIENT WAS FASTINGP ERFORMED BY: ORTIZ [facility] Iebnvj8133 [address] RoadDublin [place] [id number] Cholesterol in LDL/Cholesterol in HDL mass ratio 1.2 {ratio_units} Normal 0.0-3.2 [facility] Work Phone: Comment on above: LDL/HDL Ratio Men Wo men 1/2 Avg.Risk 1.0 1.5 Avg.Risk 3.6 3.2 2X Avg.Risk 6.2 5.0 3X Avg.Risk 8.0 6.1 PATIENT WAS FASTINGP ERFORMED BY: ORTIZ [facility] Oaozgg8237 [address] RoadDublin [place] [id number] Cholesterol in VLDL mass conc 18 mg/dL Normal 5-40 [facility] Work Phone: Comment on above: PATIENT WAS FASTINGP ERFORMED BY: ORTIZ [facility] Jkkupy3993 [address] RoadDublin [place] [id number] Cholesterol mass conc 149 mg/dL Normal 100-199 Com prehensive Internal Medicine Work Phone: Comment on above: PATIENT WAS FASTINGP ERFORMED BY: ORTIZ LabCoaustyn Qliaif7460 [address] RoadDublin [place] [id number] Triglyceride mass conc 92 mg/dL Normal 0-[address] [facility]erensive Internal Medicine Work Phone: Comment on above: PATIENT WAS FASTINGP ERFORMED BY: ORTIZ [facility] Zyvwzr7624 [address] RoadDublin [place] [id number] METABOLIC PANEL, COMPREHENSI VE ([id number])Ordered By: Lpn Rn Hospice on 09-01-2017 Albumin mass conc 4.3 g/dL Normal 3.5-4.8 Compreh [facility] Internal Medicine Work Phone: Comment on above: PATIENT WAS FASTINGP ERFORMED BY: ORTIZ [facility] Qaywuy3328 [address] RoadDublin [place] [id number] Albumin/Globulin mass ratio 2.0 {ratio} Normal 1.2-2.2 [facility] Work Phone: Comment on above: PATIENT WAS FASTINGP ERFORMED BY: ORTIZ [facility] Xhzwnu6276 [address] RoadDublin [place] [id number] ALP enzyme act/vol 71 [iU]/L Normal 39-117 Compre [facility] Internal Medicine Work Phone: Comment on above: PATIENT WAS FASTINGP ERFORMED BY: ORTIZ [facility] Xcoyma8311 [address] RoadDublin [place] [id number] ALT enzyme act/vol 11 [iU]/L Normal 0-32 [facility] Internal Medicine Work Phone: Comment on above: PATIENT WAS FASTINGP ERFORMED BY: ORTIZ [facility] Ftxixy3899 [address] RoadDublin [place] [id number] AST enzyme act/vol 16 [iU]/L Normal 0-40 [facility] Internal Medicine Work Phone: Comment on above: PATIENT WAS FASTINGP ERFORMED BY: CB [facility] Jvrqlv6241 [address] RoadDublin [place] [id number] Bilirubin mass conc 0.4 mg/dL Normal 0.0-1.2 [facility] Work Phone: Comment on above: PATIENT WAS FASTINGP ERFORMED BY: ORTIZ [facility] Ecqzna8539 [address] Roadblin [place] [id number] Calcium mass conc 9.5 mg/dL Normal 8.7-10.3 Compreh [facility] Internal Medicine Work Phone: Comment on above: PATIENT WAS FASTINGP ERFORMED BY: ORTIZ [facility] Chtftk3543 [address] RoadDublin [place] [id number] Chloride molar conc 102 mmol/L Normal 96-106 [facility] Internal Medicine Work Phone: Comment on above: PATIENT WAS FASTINGP ERFORMED BY: ORTIZ [facility] Nnadfs4254 [address] Roadblin [place] [id number] CO2 molar conc 27 mmol/L Normal 18-29 [facility] Internal Medicine Work Phone: Comment on above: PATIENT WAS FASTINGP ERFORMED BY: ORTIZ [facility] Wyglcx7420 [address] RoadDublin [place] [id number] Creatinine mass conc 0.84 mg/dL Normal 0.57-1.00 Comp [facility] Internal Medicine Work Phone: Comment on above: PATIENT WAS FASTINGP ERFORMED BY: ORTIZ [facility] Uaeute1310 [address] RoadDublin [place] [id number] GFR/1.73 sq M predicted among blacks CKD-EPI vol rate/area (S/P/Bld) 77 mL/min/1.73 Normal [facility] Work Phone: Comment on above: PATIENT WAS FASTINGP ERFORMED BY: ORTIZ [facility] Wmycob9488 [address] RoadDublin [place] [id number] GFR/1.73 sq M predicted among non-blacks CKD-EPI vol rate/area (S/P/Bld) 67 mL/min/1.73 Normal Comprehensiv e Internal Medicine Work Phone: Comment on above: PATIENT WAS FASTINGP ERFORMED BY: ORTIZ [facility] Xlacct1956 [address] RoadDublin [place] [id number] Globulin mass conc (S) 2.2 g/dL Normal 1.5-4.5 Co mprehensive Internal Medicine Work Phone: Comment on above: PATIENT WAS FASTINGP ERFORMED BY: ORTIZ [facility] Aicilk7313 [address] RoadDublin [place] [id number] Glucose mass conc 88 mg/dL Normal 65-99 Compreh ensive Internal Medicine Work Phone: Comment on above: PATIENT WAS FASTINGP ERFORMED BY: ORTIZ [facility] Fsjagm2322 [address]riugez RoadDublin [place] [id number] Potassium molar conc 4.3 mmol/L Normal 3.5-5.2 Comp rehensive Internal Medicine Work Phone: Comment on above: PATIENT WAS FASTINGP ERFORMED BY: ORTIZ [facility] Vasxvd0025 [address] RoadDublin [place] [id number] Protein mass conc 6.5 g/dL Normal 6.0-8.5 Compreh ensive Internal Medicine Work Phone: Comment on above: PATIENT WAS FASTINGP ERFORMED BY: CB [facility] Jffgsz7605 [address] RoadDublin [place] [id number] Sodium molar conc 143 mmol/L Normal 134-144 Compreh ensive Internal Medicine Work Phone: Comment on above: PATIENT WAS FASTINGP ERFORMED BY: ORTIZ [facility] Hxwkft5682 [address] RoadDublin [place] [id number] Urea nitrogen mass conc 13 mg/dL Normal 8-27 [facility] Work Phone: Comment on above: PATIENT WAS FASTINGP ERFORMED BY: CB [facility] Kfooqd1642 [address] RoadDublin [place] [id number] Urea nitrogen/Creatinine mass ratio 15 mg/mg Normal 12- [facility] Work Phone: Comment on above: PATIENT WAS FASTINGP ERFORMED BY: CB [facility] Xhzvkx7950 [address] RoadDublin [place] [id number] TSH ([id number])Ordered By: [employer] on 09-01-2017 Thyrotropin Qn 2.410 {uIU/mL} Normal 0.450-4.50 0 [facility] Work Phone: Comment on above: PATIENT WAS FASTINGP ERFORMED BY: CB [facility] Ykzcwo0841 [address] RoadDublin [place] [id number] VITAMIN B-12 (CYANOCOBALAMIN ) ([id number])Ordered By: Lpn Rn Hospice on 09-01-2017 Cobalamin (Vitamin B12) mass conc 311 pg/mL Normal 232-1245 [facility] Work Phone: Comment on above: Please note refere nce interval change PATIENT WAS FASTINGP ERFORMED BY: CB [facility] Xxseyf2710 [address] RoadDublin [place] [id number] Vitamin D Hydroxy ([id number])Ord ered By: Lpn Rn Hospice on 09-01-2017 25-Hydroxyvitamin D2+25-Hydroxyvitamin D3 mass conc 33.4 ng/mL Normal 30.0-100.0 [facility] Work Phone: Comment on above: Vitamin D deficiency has been defined by the [place] of[place] and an Endocrine Society practice guideline as alevel of serum 25-OH vitamin D less than 20 ng/mL (1,2).The Endocrine Society went on to further define vitamin Dinsufficiency as a level between 21 and 29 ng/mL (2).1. IOM ([place] of [employer]). 2010. Dietary reference intakes for calcium and D. [place]: The National Academies Press.2. Allie MF, Emile NC, Natalie POOLE, et al. Evaluation, treatment, and prevention of vitamin D deficiency: an Endocrine Society clinical practice guideline. JCEM. 2010; 96(7):1911-30. PATIENT WAS FASTINGP ERFORMED BY: [address]ello[address] [place] [id number] Office Visiton 06-05-2017 Dietary management education, guidance, and counseling (procedure) yes Invalid Interpretation Code [facility] Work Phone: Documentation of current medications (procedure) Done Invalid Interpretation Code [facility] Work Phone: Fall risk assessment No Invalid Interpretation Code [facility] Work Phone: Tobacco use CPHS Never smoker Invalid Interpretation Code [facility] Work Phone: CALCIFIDIOL (70945) VIT D 25 Ordered By: Lpn Rn Hospice on 12-16-2016 25-Hydroxyvitamin D2+25-Hydroxyvitamin D3 mass conc 37.5 ng/mL Normal 30.0-100.0 [facility] Work Phone: Comment on above: Vitamin D deficiency has been defined by the [place] of[place] and an Endocrine Society practice guideline as alevel of serum 25-OH vitamin D less than 20 ng/mL (1,2).The Endocrine Society went on to further define vitamin Dinsufficiency as a level between 21 and 29 ng/mL (2).1. IOM ([place] of [employer]). 2010. Dietary reference intakes for calcium and D. [place]: The National Academies Press.2. Allie MF, Emile [place], Natalie POOLE, et al. Evaluation, treatment, and prevention of vitamin D deficiency: an Endocrine Society clinical practice guideline. JCEM. 2010; 96(7):1911-30. PATIENT WAS FASTINGP ERFORMED BY: [employer] Mbijgs[address] [place] [id number] HEPATIC FUNCTION PANEL (8007 6)Ordered By: Lpn Rn Hospice on 12-16-2016 Albumin mass conc 4.3 g/dL Normal 3.5-4.8 Compreh ensive [facility] Work Phone: Comment on above: PATIENT WAS FASTINGP ERFORMED BY: [employer] Fyxdgf[address] [place] [id number] ALP enzyme act/vol 72 [iU]/L Normal 39-117 [facility] Internal [facility] Work Phone: Comment on above: PATIENT WAS FASTINGP ERFORMED BY: CB [facility] Zkaceo3365 [address] RoadDublin [place] [id number] ALT enzyme act/vol 15 [iU]/L Normal 0-32 [facility] Internal Medicine Work Phone: Comment on above: PATIENT WAS FASTINGP ERFORMED BY: CB [facility] Bvbtra6096 [address] RoadDublin [place] [id number] AST enzyme act/vol 18 [iU]/L Normal 0-40 [facility] Internal Medicine Work Phone: Comment on above: PATIENT WAS FASTINGP ERFORMED BY: CB [facility] Ikqdxe8538 [address] RoadDublin [place] [id number] Bilirubin mass conc 0.5 mg/dL Normal 0.0-1.2 [facility] Internal Medicine Work Phone: Comment on above: PATIENT WAS FASTINGP ERFORMED BY: [facility] Lqiieu6647 [address] RoadDublin [place] [id number] Bilirubin.direct mass conc 0.16 mg/dL Normal 0.00-0.40 [facility] Work Phone: Comment on above: PATIENT WAS FASTINGP ERFORMED BY: [facility] Hhuhaf5910 [address] RoadAtrium Health Carol[facility] Rehabilitation Charlottein [place] [id number] Protein mass conc 6.7 g/dL Normal 6.0-8.5 [facility] Internal Medicine Work Phone: Comment on above: PATIENT WAS FASTINGP ERFORMED BY: CB [facility] Jeueuz4902 [address] RoadAtrium Health Carol[facility] Rehabilitation Charlottein [place] [id number] LIPID PANEL (55203)Ordered B y: Lpn Rn Hospice on 12-16-2016 Cholesterol in HDL mass conc 56 mg/dL Normal [facility] Work Phone: Comment on above: PATIENT WAS FASTINGP ERFORMED BY: CB [facility] Vwamhx4238 [address] RoadDublin [place] [id number] Information: [id number], [id number] Cholesterol in LDL mass conc 44 mg/dL Normal 0-99 [facility] Work Phone: Comment on above: PATIENT WAS FASTINGP ERFORMED BY: ORTIZ [facility] Mmmiqi0086 [facility] [id number] Information: [id number], [id number] Cholesterol in LDL/Cholesterol in HDL mass ratio 0.8 {ratio_units} Normal 0.0-3.2 [facility] Work Phone: Comment on above: LDL/HDL Ratio Men Wo men 1/2 Avg.Risk 1.0 1.5 Avg.Risk 3.6 3.2 2X Avg.Risk 6.2 5.0 3X Avg.Risk 8.0 6.1 PATIENT WAS FASTINGP ERFORMED BY: ORTIZ [facility] Uofsaf8680 [facility] [id number] Information: [id number], [id number] Cholesterol in VLDL mass conc 27 mg/dL Normal 5-40 [facility] Work Phone: Comment on above: PATIENT WAS FASTINGP ERFORMED BY: ORTIZ [facility] Jnbsqt6744 [facility] [id number] Information: [id number], [id number] Cholesterol mass conc 127 mg/dL Normal 100-199 Com prehensive Internal Medicine Work Phone: Comment on above: PATIENT WAS FASTINGP ERFORMED BY: ORTIZ [facility] Fmfwqw4024 [facility] [id number] Information: [id number], [id number] Triglyceride mass conc 135 mg/dL Normal 0-[address] [facility] Work Phone: Comment on above: PATIENT WAS FASTINGP ERFORMED BY: [facility] Sjkzdd8892 [facility] [id number] Information: [id number], [id number] Clinical Lists Update: Prelo broacher 10-31-2016 Left ventricular Ejection fraction 70 % Invalid Interpretation Code [facility] Work Phone: Lipid Panel (40412)Ordered B y: Lpn Rn Hospice on 09-16-2016 Cholesterol in HDL mass conc 44 mg/dL Normal [facility] Work Phone: Comment on above: PATIENT WAS FASTINGP ERFORMED BY: ORTIZ Crowelin6[address] RoadDublin [place] [id number] Cholesterol in LDL mass conc 161 mg/dL Abnormal 0-99 [facility] Work Phone: Comment on above: PATIENT WAS FASTINGP ERFORMED BY: ORTIZ Chester[address]Dublin [place] [id number] Cholesterol in LDL/Cholesterol in HDL mass ratio 3.7 {ratio_units} Abnormal 0.0-3.2 [facility] Work Phone: Comment on above: LDL/HDL Ratio Men Wo men 1/2 Avg.Risk 1.0 1.5 Avg.Risk 3.6 3.2 2X Avg.Risk 6.2 5.0 3X Avg.Risk 8.0 6.1 PATIENT WAS FASTINGP ERFORMED BY: ORTIZ Crowelin6[address] RoadDublin [place] [id number] Cholesterol in VLDL mass conc 28 mg/dL Normal 5-40 [facility] Work Phone: Comment on above: PATIENT WAS FASTINGP ERFORMED BY: ORTIZ Crowelin6[address] Road[address] [place] [id number] Cholesterol mass conc 233 mg/dL Abnormal 100-199 Com prehensive [facility] Medicine Work Phone: Comment on above: PATIENT WAS FASTINGP ERFORMED BY: ORTIZ Crowelin6[address] RoadD[address] [place] [id number] Triglyceride mass conc 139 mg/dL Normal 0-[address] [facility] Work Phone: Comment on above: PATIENT WAS FASTINGP ERFORMED BY: ORTIZ LabAleksandr Bnohzl1071 [address] RoadDublin [place] [id number] VITAMIN B-12 (CYANOCOBALAMIN ) (19139)Ordered By: Lpn Rn Hospice on 09-16-2016 Cobalamin (Vitamin B12) mass conc 788 pg/mL Normal 211-946 [facility] Work Phone: Comment on above: PATIENT WAS FASTINGP ERFORMED BY: ORTIZ LabAleksandr CroweFozdvw2709 [address] RoadDublin [place] [id number] CALCIFIDIOL (03995) VIT D 25 Ordered By: Lpn Rn Hospice on 07-01-2016 25-Hydroxyvitamin D2+25-Hydroxyvitamin D3 mass conc 34.8 ng/mL Normal 30.0-100.0 [facility] Work Phone: Comment on above: Vitamin D deficiency has been defined by the [place] of[place] and an Endocrine Society practice guideline as alevel of serum 25-OH vitamin D less than 20 ng/mL (1,2).The Endocrine Society went on to further define vitamin Dinsufficiency as a level between 21 and 29 ng/mL (2).1. IOM ([place] of [place]). 2010. Dietary reference intakes for calcium and D. [place]: The National Academies Press.2. Allie MF, Emile PONCE, Natalie POOLE, et al. Evaluation, treatment, and prevention of vitamin D deficiency: an Endocrine Society clinical practice guideline. JCEM. 2010; 96(7):1911-30. PATIENT WAS FASTINGP ERFORMED BY: [employer] [place] [id number] CBC W/AUTO DIFF WBC (46678)O rdered By: Lpn Rn Hospice on 07-01-2016 Basophils #/vol (Bld) 0.0 {x10E3/uL} Normal 0.0-0.2 [facility] Work Phone: Comment on above: PATIENT WAS FASTINGP ERFORMED BY: [place] [id number] Basophils/100 WBC (Bld) 0 % Normal [facility] Work Phone: Comment on above: PATIENT WAS FASTINGP ERFORMED BY: Percello[address] [place] [id number] Eosinophils #/vol (Bld) 0.1 {x10E3/uL} Normal 0.0-0.4 [facility] Work Phone: Comment on above: PATIENT WAS FASTINGP ERFORMED BY: [employer] [place] [id number] Eosinophils/100 WBC (Bld) 2 % Normal [facility] Work Phone: Comment on above: PATIENT WAS FASTINGP ERFORMED BY: ORTIZ [facility]Saint [facility] Funhvp4133 [facility] [id number] Erythrocyte distribution width Ratio (RBC) 14.0 % Normal 12.3-15.4 [facility] Work Phone: Comment on above: PATIENT WAS FASTINGP ERFORMED BY: ORTIZ [facility]enaSaint [facility] Qcbfus2128 [facility] [id number] Hematocrit Volume Fraction (Bld) 42.4 % Normal 34.0-46.6 [facility] Work Phone: Comment on above: PATIENT WAS FASTINGP ERFORMED BY: ORTIZ MeenaSaint [facility] Qwcvvr2145 [facility] [id number] Hemoglobin mass conc (Bld) 14.1 g/dL Normal 11.1-15.9 [facility] Work Phone: Comment on above: PATIENT WAS FASTINGP ERFORMED BY: ORTIZ RobledoSaint Luke[facility] Xhvkfw1362 [facility] [id number] Immature granulocytes #/vol (Bld) 0.0 {x10E3/uL} Normal 0.0-0.1 [facility] Work Phone: Comment on above: PATIENT WAS FASTINGP ERFORMED BY: ORTIZ MeenaJulia [place] 2000170 [facility] [id number] Immature granulocytes/100 WBC (Bld) 0 % Normal [facility] Work Phone: Comment on above: PATIENT WAS FASTINGP ERFORMED BY: ORTIZ [place] 6200670 [facility] [id number] Lymphocytes #/vol (Bld) 1.8 {x10E3/uL} Normal 0.7-3.1 [facility] Work Phone: Comment on above: PATIENT WAS FASTINGP ERFORMED BY: ORTIZ MeenaSaint [facility] Cbgapr1375 [facility] [id number] Lymphocytes/100 WBC (Bld) 31 % Normal [facility] Work Phone: Comment on above: PATIENT WAS FASTINGP ERFORMED BY: ORTIZ [place] 6200670 [address] RoadDublin [place] [id number] MCH Entitic mass (RBC) 29.7 pg Normal 26.6-33.0 [facility] Work Phone: Comment on above: PATIENT WAS FASTINGP ERFORMED BY: ORTIZ LabAleksandr CroweZmaxrt1766 [address] RoadDublin [place] [id number] MCHC mass conc (RBC) 33.3 g/dL Normal 31.5-35.7 [facility] Internal Medicine Work Phone: Comment on above: PATIENT WAS FASTINGP ERFORMED BY: ORTIZ LabKellie Mxqwan0459 [address] Roadblin [place] [id number] MCV Entitic volume (RBC) 89 fL Normal 79-97 [facility] Work Phone: Comment on above: PATIENT WAS FASTINGP ERFORMED BY: ORTIZ Crowelin6[address] RoadAt[facility] Rehabilitation [place]in [place] [id number] Monocytes #/vol (Bld) 0.4 {x10E3/uL} Normal 0.1-0.9 [facility] Work Phone: Comment on above: PATIENT WAS FASTINGP ERFORMED BY: ORTIZ Crowelin6[address] Roadblin [place] [id number] Monocytes/100 WBC (Bld) 6 % Normal [facility] Work Phone: Comment on above: PATIENT WAS FASTINGP ERFORMED BY: ORTIZ LabAleksandr CroweDshius1206 [address] [facility]in [place] [id number] Neutrophils #/vol (Bld) 3.7 {x10E3/uL} Normal 1.4-7.0 [facility] Work Phone: Comment on above: PATIENT WAS FASTINGP ERFORMED BY: ORTIZ LabAleksandr CroweXybwte[address] [facility] HospitalDublin [place] [id number] Neutrophils/100 WBC (Bld) 61 % Normal [facility] Work Phone: Comment on above: PATIENT WAS FASTINGP ERFORMED BY: ORTIZ LabAleksandr CroweMlhvbu0088 [address] RoadDublin [place] [id number] Platelets #/vol (Bld) 221 {x10E3/uL} Normal 150-379 [facility] Work Phone: Comment on above: PATIENT WAS FASTINGP ERFORMED BY: ORTIZ Chester6370 [facility] [id number] RBC #/vol (Bld) 4.75 {x10E6/uL} Normal 3.77-5.28 [facility] Work Phone: Comment on above: PATIENT WAS FASTINGP ERFORMED BY: ORTIZ RobledoSaint Luke'[facility] Gizzny2930 [facility] [id number] WBC #/vol (Bld) 6.0 {x10E3/uL} Normal 3.4-10.8 [facility] Work Phone: Comment on above: PATIENT WAS FASTINGP ERFORMED BY: ORTIZ Ameya Ztfqpt6986 [facility] [id number] LIPID PANEL (08829)Ordered B y: Lpn Rn Hospice on 07-01-2016 Cholesterol in HDL mass conc 41 mg/dL Normal [facility] Work Phone: Comment on above: According to ATP-III Guidelines, HDL-C >59 mg/dL is considered anegative risk factor for CHD. PATIENT WAS FASTINGP ERFORMED BY: ORTIZ Nilda Crowelin6370 [facility] [id number] Cholesterol in LDL mass conc 129 mg/dL Abnormal 0-99 [facility] Work Phone: Comment on above: PATIENT WAS FASTINGP ERFORMED BY: ORTIZ MeenaCorewell Health Zeeland Hospital6370 [facility] [id number] Cholesterol in LDL/Cholesterol in HDL mass ratio 3.1 {ratio_units} Normal 0.0-3.2 [facility] Work Phone: Comment on above: LDL/HDL Ratio Men Wo men 1/2 Avg.Risk 1.0 1.5 Avg.Risk 3.6 3.2 2X Avg.Risk 6.2 5.0 3X Avg.Risk 8.0 6.1 PATIENT WAS FASTINGP ERFORMED BY: [place] 7753070 [facility] [id number] Cholesterol in VLDL mass conc 45 mg/dL Abnormal 5-40 [facility] Work Phone: Comment on above: PATIENT WAS FASTINGP ERFORMED BY: ORTIZ LabCoaustyn CroweXotute7088 [facility] [id number] Cholesterol mass conc 215 mg/dL Abnormal 100-199 Com prehensive [facility] Medicine Work Phone: Comment on above: PATIENT WAS FASTINGP ERFORMED BY: ORTIZ [facility] Xfhqxl8807 [facility] [id number] Triglyceride mass conc 223 mg/dL Abnormal 0-149 Co mprehensive [facility] Work Phone: Comment on above: PATIENT WAS FASTINGP ERFORMED BY: ORTIZ LabAleksandr CroweWadvql9202 [facility] [id number] METABOLIC PANEL, COMPREHENSI VE ([id number])Ordered By: Lpn Rn Hospice on 07-01-2016 Albumin mass conc 4.1 g/dL Normal 3.5-4.8 Compreh [facility] Internal [facility] Work Phone: Comment on above: PATIENT WAS FASTINGP ERFORMED BY: ORTIZ [facility] Hbrvlg9098 [facility] [id number] Albumin/Globulin mass ratio 1.6 {ratio} Normal 1.1-2.[address] [facility] Internal Medicine Work Phone: Comment on above: PATIENT WAS FASTINGP ERFORMED BY: ORTIZ [facility] Jtmlqr1100 [facility] [id number] ALP enzyme act/vol 98 [iU]/L Normal 39-117 [facility] Work Phone: Comment on above: PATIENT WAS FASTINGP ERFORMED BY: ORTIZ [facility] Ljowsu9495 [facility] [id number] ALT enzyme act/vol 11 [iU]/L Normal 0-32 [facility] Internal Medicine Work Phone: Comment on above: PATIENT WAS FASTINGP ERFORMED BY: ORTIZ [facility] Mxlcpi6646 [facility] [id number] AST enzyme act/vol 17 [iU]/L Normal 0-[address] [facility] Internal Medicine Work Phone: Comment on above: PATIENT WAS FASTINGP ERFORMED BY: ORTIZ [facility] Kndxwe5391 [address] RoadDublin [place] [id number] Bilirubin mass conc 0.2 mg/dL Normal 0.0-1.2 Compr ensive Internal Medicine Work Phone: Comment on above: PATIENT WAS FASTINGP ERFORMED BY: ORTIZ [facility] Hcqvri3130 [address] Roadblin [place] [id number] Calcium mass conc 9.8 mg/dL Normal 8.7-10.3 Compreh page hospitalive Internal Medicine Work Phone: Comment on above: PATIENT WAS FASTINGP ERFORMED BY: ORTIZ [facility] Rvmvet7915 [address] Roadblin [place] [id number] Chloride molar conc 101 mmol/L Normal 97-106 Compr [facility] Internal Medicine Work Phone: Comment on above: Please note refere nce interval change PATIENT WAS FASTINGP ERFORMED BY: ORTIZ [facility] Qidbih8648 [address] Roadblin [place] [id number] CO2 molar conc 27 mmol/L Normal 18-29 Comprehens trupti Internal Medicine Work Phone: Comment on above: PATIENT WAS FASTINGP ERFORMED BY: ORTIZ LabAleksandr CroweCfhcxz8774 [address] [facility]in [place] [id number] Creatinine mass conc 0.89 mg/dL Normal 0.57-1.00 Comp [facility] Internal Medicine Work Phone: Comment on above: PATIENT WAS FASTINGP ERFORMED BY: CB [facility] Yfxnut3261 [address] RoadAtrium Health [facility] Rehabilitation [place]in [place] [id number] GFR/1.73 sq M predicted among blacks CKD-EPI vol rate/area (S/P/Bld) 72 mL/min/1.73 Normal [facility] Work Phone: Comment on above: PATIENT WAS FASTINGP ERFORMED BY: CB [facility] Cxzajt8320 [address] RoadDublin [place] [id number] GFR/1.73 sq M predicted among non-blacks CKD-EPI vol rate/area (S/P/Bld) 63 mL/min/1.73 Normal Comprehensiv e Internal Medicine Work Phone: Comment on above: PATIENT WAS FASTINGP ERFORMED BY: ORTIZ [facility] Xkvygz7985 [address] Roadblin [place] [id number] Globulin mass conc (S) 2.5 g/dL Normal 1.5-4.5 Co mprehensive [facility] Work Phone: Comment on above: PATIENT WAS FASTINGP ERFORMED BY: CB [facility] Qptdet9937 [address] [facility]in [place] [id number] Glucose mass conc 92 mg/dL Normal 65-99 Compreh ensive Internal Medicine Work Phone: Comment on above: PATIENT WAS FASTINGP ERFORMED BY: ORTIZ [facility] Nedqop0702 [address] [facility] [id number] Potassium molar conc 5.0 mmol/L Normal 3.5-5.2 Comp rehensive Internal Medicine Work Phone: Comment on above: Please note refere nce interval change PATIENT WAS FASTINGP ERFORMED BY: ORTIZ LabCo Arfrym2347 [address] [facility]in [place] [id number] Protein mass conc 6.6 g/dL Normal 6.0-8.5 Compreh ensive Internal Medicine Work Phone: Comment on above: PATIENT WAS FASTINGP ERFORMED BY: ORTIZ [facility] Pnsdnf1813 [address] [facility]in [place] [id number] Sodium molar conc 143 mmol/L Normal 136-144 Compreh ensive Internal Medicine Work Phone: Comment on above: Please note refere nce interval change PATIENT WAS FASTINGP ERFORMED BY: [facility] Ryyvxs8474 [address] [facility] Centerblin [place] [id number] Urea nitrogen mass conc 9 mg/dL Normal 8-27 [facility] Work Phone: Comment on above: PATIENT WAS FASTINGP ERFORMED BY: [facility] Rrquhu8868 [address] [facility]in [place] [id number] Urea nitrogen/Creatinine mass ratio 10 mg/mg Abnormal 11-26 [facility] Work Phone: Comment on above: PATIENT WAS FASTINGP ERFORMED BY: ORTIZ [facility] Cdfryt1871 [address] RoadDublin [place] [id number] MICROALBUMINOrdered By: [employer] Examiner on 07-01-2016 Albumin DL <= 20 mg/L mass conc (U) 5.9 ug/mL Normal [facility] Work Phone: Comment on above: PATIENT WAS FASTINGP ERFORMED BY: ORTIZ [facility] Jdoyij5364 [address] RoadDublin [place] [id number] Albumin/Creatinine mass ratio (U) 4.3 {mg/g_creat} Normal 0.0-30.0 [facility] Work Phone: Comment on above: PATIENT WAS FASTINGP ERFORMED BY: ORTIZ [facility] Eojgkq0423 [address] RoadDublin [place] [id number] Creatinine mass conc (U) 138.1 mg/dL Normal [facility] Work Phone: Comment on above: PATIENT WAS FASTINGP ERFORMED BY: ORTIZ [facility] Wftdgf6247 [address] RoadDublin [place] [id number] TSH ([id number])Ordered By: Armune BioScienceaida Cigarette Making Examiner on 07-01-2016 Thyrotropin Qn 3.470 {uIU/mL} Normal 0.450-4.50 0 [facility] Work Phone: Comment on above: PATIENT WAS FASTINGP ERFORMED BY: ORTIZ [facility] Vgnqso7542 [address] RoadDublin [place] [id number] URINALYSIS, W/ MICRO (46812) Ordered By: Lpn Rn Hospice on 07-01-2016 Appearance Nom (U) Clear Normal Compre hensive Internal Medicine Work Phone: Comment on above: PATIENT WAS FASTINGP ERFORMED BY: CB [facility] Pqebqn7789 [address] RoadDublin [place] [id number] Bilirubin Ql (U) Negative Normal Comprehe nsive Internal Medicine Work Phone: Comment on above: PATIENT WAS FASTINGP ERFORMED BY: CB [facility] Wkupfq6701 [address] RoadDublin [place] [id number] Color Nom (U) Yellow Normal Comprehensi ve Internal Medicine Work Phone: Comment on above: PATIENT WAS FASTINGP ERFORMED BY: ORTIZ Chester6[address] [place] [id number] Glucose Ql (U) Negative Normal Comprehens trupti Internal Medicine Work Phone: Comment on above: PATIENT WAS FASTINGP ERFORMED BY: ORTIZ Chester6[address] [place] [id number] Hemoglobin Ql (U) Negative Normal Compreh ensive Internal Medicine Work Phone: Comment on above: PATIENT WAS FASTINGP ERFORMED BY: ORTIZ Chester6[address] [place] [id number] Ketones Ql (U) Negative Normal Comprehens trupti Internal Medicine Work Phone: Comment on above: PATIENT WAS FASTINGP ERFORMED BY: ORTIZ Chester6[address] [place] [id number] Leukocyte esterase Test strip Ql (U) Negative Normal [facility] Work Phone: Comment on above: PATIENT WAS FASTINGP ERFORMED BY: ORTIZ Chester6[address] [place] [id number] Microscopic observation LM Nom (Urine sed) MICRON Normal [facility] Work Phone: Comment on above: Microscopic follows if indicated. PATIENT WAS FASTINGP ERFORMED BY: ORTIZ Chester6[address] [place] [id number] Microscopic observation LM Nom (Urine sed) See below: Normal [facility] Work Phone: Comment on above: Microscopic was derrick cated and was performed. PATIENT WAS FASTINGP ERFORMED BY: ORTIZ Crowelin6370 [address] RoadD[address] [place] [id number] Nitrite Ql (U) Negative Normal Comprehens trupti Internal Medicine Work Phone: Comment on above: PATIENT WAS FASTINGP ERFORMED BY: ORTIZ Crowelin6[address] [place] [id number] pH (U) 5.5 [pH] Normal 5.0-7.5 [facility] Work Phone: Comment on above: PATIENT WAS FASTINGP ERFORMED BY: ORTIZ LabCoaustyn Ngaxnq0059 [address] [facility] Centerblin [place] [id number] Protein Ql (U) Negative Normal Comprehens trupti Internal Medicine Work Phone: Comment on above: PATIENT WAS FASTINGP ERFORMED BY: ORTIZ Hou Dpeszy5054 [facility] [id number] Specific gravity Relative Density (U) 1.016 1 Normal 1.005-1.03 0 [facility] Work Phone: Comment on above: PATIENT WAS FASTINGP ERFORMED BY: ORTIZ LabCoaustyn CroweJtvlmx0680 [address] [facility] [id number] Urobilinogen Test strip mass conc (U) 0.2 mg/dL Normal 0.2-1.0 Comprehensiv e Internal Medicine Work Phone: Comment on above: PATIENT WAS FASTINGP ERFORMED BY: ORTIZ [facility] Pigtrp0487 [address] [facility]in [place] [id number] VITAMIN B-12 (CYANOCOBALAMIN ) (55706)Ordered By: Lpn Rn Hospice on 07-01-2016 Cobalamin (Vitamin B12) mass conc 861 pg/mL Normal 211-946 [facility] Work Phone: Comment on above: PATIENT WAS FASTINGP ERFORMED BY: ORTIZ [facility] Qqhkay6679 [address] [facility]bl[facility] [place] [id number] CALCIFIDIOL (94374) VIT D 25 Ordered By: Lpn Rn Hospice on 12-05-2015 25-Hydroxyvitamin D2+25-Hydroxyvitamin D3 mass conc 40.5 ng/mL Normal 30.0-100.0 [facility] Work Phone: Comment on above: Vitamin D deficiency has been defined by the [place] of[place] and an Endocrine Society practice guideline as alevel of serum 25-OH vitamin D less than 20 ng/mL (1,2).The Endocrine Society went on to further define vitamin Dinsufficiency as a level between 21 and 29 ng/mL (2).1. IOM ([place] of [employer]). 2010. Dietary reference intakes for calcium and D. [place]: The National Academies Press.2. Allie MF, Emile NC, Natalie POOLE, et al. Evaluation, treatment, and prevention of vitamin D deficiency: an Endocrine Society clinical practice guideline. JCEM. 2010; 96(7):1911-30. PATIENT WAS FASTINGP ERFORMED BY: [facility] Fxbjse4032 Rodriguez RoadDublin [place] [id number] CBC W/AUTO DIFF WBC (81716)O rdered By: Lpn Rn Hospice on 12-05-2015 Basophils #/vol (Bld) 0.0 {x10E3/uL} Normal 0.0-0.2 [facility] Work Phone: Comment on above: PATIENT WAS FASTINGP ERFORMED BY: [facility] Klzuup8294 Rodriguez RoadDublin [place] [id number] Information: [id number] Basophils/100 WBC (Bld) 1 % Normal [facility] Work Phone: Comment on above: PATIENT WAS FASTINGP ERFORMED BY: [facility] Pcrljs8245 Rodriguez RoadDublin [place] [id number] Information: [id number] Eosinophils #/vol (Bld) 0.2 {x10E3/uL} Normal 0.0-0.4 [facility] Work Phone: Comment on above: PATIENT WAS FASTINGP ERFORMED BY: [facility] Shypjy2770 Rodriguez RoadDublin [place] [id number] Information: [id number] Eosinophils/100 WBC (Bld) 4 % Normal [facility] Work Phone: Comment on above: PATIENT WAS FASTINGP ERFORMED BY: [facility] Qwwjoe6215 Rodriguez RoadDublin [place] [id number] Information: [id number] Erythrocyte distribution width Ratio (RBC) 13.7 % Normal 12.3-15.4 [facility] Work Phone: Comment on above: PATIENT WAS FASTINGP ERFORMED BY: [facility] Uhdpzn6038 Rodriguez RoadDublin [place] [id number] Information: [id number] Hematocrit Volume Fraction (Bld) 40.2 % Normal 34.0-46.6 [facility] Work Phone: Comment on above: PATIENT WAS FASTINGP ERFORMED BY: [place] 7753070 [facility] [id number] Information: [id number] Hemoglobin mass conc (Bld) 13.6 g/dL Normal 11.1-15.9 [facility] Work Phone: Comment on above: PATIENT WAS FASTINGP ERFORMED BY: [address] [id number] Information: [id number] Immature granulocytes #/vol (Bld) 0.0 {x10E3/uL} Normal 0.0-0.1 [facility] Work Phone: Comment on above: PATIENT WAS FASTINGP ERFORMED BY: [place] 7753070 [facility] [id number] Information: [id number] Immature granulocytes/100 WBC (Bld) 0 % Normal [facility] Work Phone: Comment on above: PATIENT WAS FASTINGP ERFORMED BY: [address] [id number] Information: [id number] Lymphocytes #/vol (Bld) 1.2 {x10E3/uL} Normal 0.7-3.1 [facility] Work Phone: Comment on above: PATIENT WAS FASTINGP ERFORMED BY: [place] 7753070 [facility] [id number] Information: [id number] Lymphocytes/100 WBC (Bld) 26 % Normal [facility] Work Phone: Comment on above: PATIENT WAS FASTINGP ERFORMED BY: [address] [id number] Information: [id number] MCH Entitic mass (RBC) 30.0 pg Normal 26.6-33.0 [facility] Medicine Work Phone: Comment on above: PATIENT WAS FASTINGP ERFORMED BY: [place] 7753070 [facility] [id number] Information: [id number] MCHC mass conc (RBC) 33.8 g/dL Normal 31.5-35.7 [facility] Medicine Work Phone: Comment on above: PATIENT WAS FASTINGP ERFORMED BY: [address] [id number] Information: [id number] MCV Entitic volume (RBC) 89 fL Normal 79-[address] [facility] Internal Medicine Work Phone: Comment on above: PATIENT WAS FASTINGP ERFORMED BY: [address] [id number] Information: [id number] Monocytes #/vol (Bld) 0.5 {x10E3/uL} Normal 0.1-0.9 [facility] Work Phone: Comment on above: PATIENT WAS FASTINGP ERFORMED BY: [address] [id number] Information: [id number] Monocytes/100 WBC (Bld) 10 % Normal [facility] Work Phone: Comment on above: PATIENT WAS FASTINGP ERFORMED BY: [address] [id number] Information: [id number] Neutrophils #/vol (Bld) 2.7 {x10E3/uL} Normal 1.4-7.0 [facility] Work Phone: Comment on above: PATIENT WAS FASTINGP ERFORMED BY: [address] [id number] Information: [id number] Neutrophils/100 WBC (Bld) 59 % Normal [facility] Work Phone: Comment on above: PATIENT WAS FASTINGP ERFORMED BY: ORTIZ Chester6370 [facility] [id number] Information: [id number] Platelets #/vol (Bld) 206 {x10E3/uL} Normal 150-379 [facility] Work Phone: Comment on above: PATIENT WAS FASTINGP ERFORMED BY: ORTIZ [facility]ledoSaint [facility] Moebfv5523 [facility] [id number] Information: [id number] RBC #/vol (Bld) 4.54 {x10E6/uL} Normal 3.77-5.28 [facility] Internal Medicine Work Phone: Comment on above: PATIENT WAS FASTINGP ERFORMED BY: ORTIZ MeenaSaint [facility] Prufjy2479 [facility] [id number] Information: [id number] WBC #/vol (Bld) 4.5 {x10E3/uL} Normal 3.4-10.8 [facility] Internal Medicine Work Phone: Comment on above: PATIENT WAS FASTINGP ERFORMED BY: ORTIZ Hou Wdzjkv1364 [facility] [id number] Information: [id number],[id number] LIPID PANEL (85700)Ordered B y: Lpn Rn Hospice on 12-05-2015 Cholesterol in HDL mass conc 46 mg/dL Normal [facility] Work Phone: Comment on above: According to ATP-III Guidelines, HDL-C >59 mg/dL is considered anegative risk factor for CHD. PATIENT WAS FASTINGP ERFORMED BY: ORTIZ RobledoSaint [facility] Pcwmcu2433 [facility] [id number] Cholesterol in LDL mass conc 126 mg/dL Abnormal 0-99 [facility] Work Phone: Comment on above: PATIENT WAS FASTINGP ERFORMED BY: ORTIZ LabCore[facility]6370 [facility] [id number] Cholesterol in LDL/Cholesterol in HDL mass ratio 2.7 {ratio_units} Normal 0.0-3.2 [facility] Work Phone: Comment on above: LDL/HDL Ratio Men Wo men 1/2 Avg.Risk 1.0 1.5 Avg.Risk 3.6 3.2 2X Avg.Risk 6.2 5.0 3X Avg.Risk 8.0 6.1 PATIENT WAS FASTINGP ERFORMED BY: ORTIZ LabAleksandr CroweQdcoke3573 Rodriguez Virtwayin [place] [id number] Cholesterol in VLDL mass conc 31 mg/dL Normal 5-40 [facility] Work Phone: Comment on above: PATIENT WAS FASTINGP ERFORMED BY: ORTIZ LabAleksandr CroweOfqozl4713 [address] Virtwayin [place] [id number] Cholesterol mass conc 203 mg/dL Abnormal 100-199 Com prehensive Internal Medicine Work Phone: Comment on above: PATIENT WAS FASTINGP ERFORMED BY: ORTIZ LabAleksandr CroweRkgkcp5218 [address] VirtwayYad[facility] [id number] Triglyceride mass conc 156 mg/dL Abnormal 0-149 [facility]erehensive [facility] Work Phone: Comment on above: PATIENT WAS FASTINGP ERFORMED BY: ORTIZ LabAleksandr CroweBjpkbj1822 [address] VirtwayYadkin [facility] [id number] METABOLIC PANEL, COMPREHENSI VE (79093)Ordered By: Lpn Rn Hospice on 12-05-2015 Albumin mass conc 4.2 g/dL Normal 3.5-4.8 Compreh ensive Internal Medicine Work Phone: Comment on above: PATIENT WAS FASTINGP ERFORMED BY: ORTIZ LabCoaustyn Fpxqzc8966 [address] [facility] [id number] Albumin/Globulin mass ratio 1.8 {ratio} Normal 1.1-2.5 [facility] Work Phone: Comment on above: PATIENT WAS FASTINGP ERFORMED BY: ORTIZ LabAleksandr Yqdqla8526 [facility] [id number] ALP enzyme act/vol 71 [iU]/L Normal 39-117 Compre [facility] Internal Medicine Work Phone: Comment on above: PATIENT WAS FASTINGP ERFORMED BY: ORTIZ [facility] Yujkfa2938 [address] RoadDublin [place] [id number] ALT enzyme act/vol 10 [iU]/L Normal 0-32 [facility] Work Phone: Comment on above: PATIENT WAS FASTINGP ERFORMED BY: ORTIZ [facility] Jinoto3470 [address] RoadDublin [place] [id number] AST enzyme act/vol 17 [iU]/L Normal 0-40 [facility] Work Phone: Comment on above: PATIENT WAS FASTINGP ERFORMED BY: ORTIZ [facility] Djjflf8069 [address] RoadDublin [place] [id number] Bilirubin mass conc 0.4 mg/dL Normal 0.0-1.2 Compr [facility] Internal Medicine Work Phone: Comment on above: PATIENT WAS FASTINGP ERFORMED BY: ORTIZ [facility] Mlrxwl5619 [address] RoadDublin [place] [id number] Calcium mass conc 9.5 mg/dL Normal 8.7-10.3 Compreh page hospitalive Internal Medicine Work Phone: Comment on above: PATIENT WAS FASTINGP ERFORMED BY: ORTIZ [facility] Hhlafx6212 [address] RoadDublin [place] [id number] Chloride molar conc 106 mmol/L Normal 97-108 [facility] Internal Medicine Work Phone: Comment on above: PATIENT WAS FASTINGP ERFORMED BY: ORTIZ [facility] Nmedit9096 [address] RoadDublin [place] [id number] CO2 molar conc 25 mmol/L Normal 18-29 [facility]pre[facility] Work Phone: Comment on above: PATIENT WAS FASTINGP ERFORMED BY: ORTIZ [facility] Fifhvo8515 [address] RoadDublin [place] [id number] Creatinine mass conc 0.92 mg/dL Normal 0.57-1.00 [facility] Internal Medicine Work Phone: Comment on above: PATIENT WAS FASTINGP ERFORMED BY: ORTIZ [facility] Auscqc3014 [address] RoadDublin [place] [id number] GFR/1.73 sq M predicted among blacks CKD-EPI vol rate/area (S/P/Bld) 70 mL/min/1.73 Normal [facility] Work Phone: Comment on above: PATIENT WAS FASTINGP ERFORMED BY: ORTIZ [facility] Ovmson1852 [address] Roadblin [place] [id number] GFR/1.73 sq M predicted among non-blacks CKD-EPI vol rate/area (S/P/Bld) 61 mL/min/1.73 Normal Comprehensiv e Internal Medicine Work Phone: Comment on above: PATIENT WAS FASTINGP ERFORMED BY: ORTIZ [facility] Ksvjyc1849 [address] [facility] [id number] Globulin mass conc (S) 2.3 g/dL Normal 1.5-4.5 Co mprehensive [facility] Medicine Work Phone: Comment on above: PATIENT WAS FASTINGP ERFORMED BY: ORTIZ [facility] Wtqkdt8118 [facility] [id number] Glucose mass conc 84 mg/dL Normal 65-99 Compreh ensive Internal Medicine Work Phone: Comment on above: PATIENT WAS FASTINGP ERFORMED BY: ORTIZ [facility] Worzfe8557 [address] [facility] [id number] Potassium molar conc 4.6 mmol/L Normal 3.5-5.2 Comp rehensive Internal Medicine Work Phone: Comment on above: PATIENT WAS FASTINGP ERFORMED BY: ORTIZ [facility] Nyjvjx0707 [facility] [id number] Protein mass conc 6.5 g/dL Normal 6.0-8.5 Compreh ensive Internal Medicine Work Phone: Comment on above: PATIENT WAS FASTINGP ERFORMED BY: ORTIZ [facility] Uvblpn8054 [address] [facility]in [place] [id number] Sodium molar conc 145 mmol/L Abnormal 134-144 Compreh ensive [facility] Medicine Work Phone: Comment on above: PATIENT WAS FASTINGP ERFORMED BY: ORTIZ [facility] Cpikfe5081 [address] [facility] [id number] Urea nitrogen mass conc 16 mg/dL Normal 8-27 [facility] Work Phone: Comment on above: PATIENT WAS FASTINGP ERFORMED BY: ORTIZ LabKellie Uwzqux3214 [address] Roadblin [place] [id number] Urea nitrogen/Creatinine mass ratio 17 mg/mg Normal 11-26 [facility] Work Phone: Comment on above: PATIENT WAS FASTINGP ERFORMED BY: ORTIZ LabSaint [facility] Giddpi1872 [address] Roadblin [place] [id number] MICROALBUMINOrdered By: [employer] em Cigarette Making Examiner on 12-05-2015 Albumin DL <= 20 mg/L mass conc (U) 25.6 ug/mL Abnormal 0.0-17.0 [facility] Work Phone: Comment on above: PATIENT WAS FASTINGP ERFORMED BY: ORTIZ RobledoSaint [facility] Qfewik8264 [address] Roadblin [place] [id number] Albumin/Creatinine mass ratio (U) 9.3 {mg/g_creat} Normal 0.0-30.0 [facility] Work Phone: Comment on above: PATIENT WAS FASTINGP ERFORMED BY: ORTIZ RobledoSaint [facility] Fxnizu4751 [address] RoadDublin [place] [id number] Creatinine mass conc (U) 276.5 mg/dL Normal 15.0-278.0 [facility] Work Phone: Comment on above: PATIENT WAS FASTINGP ERFORMED BY: ORTIZ RobledoSaint [facility] Zdryxc1264 [address] [facility] [id number] TSH ([id number])Ordered By: Syste m Cigarette Making Examiner on 12-05-2015 Thyrotropin Qn 1.330 {uIU/mL} Normal 0.450-4.50 0 [facility] Work Phone: Comment on above: PATIENT WAS FASTINGP ERFORMED BY: ORTIZ LabSaint [facility] Vgglmi0113 [address] [facility]bl[facility] [place] [id number] URINALYSIS, W/ MICRO ([id number]) Ordered By: Lpn Rn Hospice on 12-05-2015 Appearance Nom (U) Clear Normal Compre [facility] Internal Medicine Work Phone: Comment on above: PATIENT WAS FASTINGP ERFORMED BY: ORTIZ Crowelin6370 [address] RoadDublin [place] [id number] Bilirubin Ql (U) Negative Normal Comprehe nsive Internal Medicine Work Phone: Comment on above: PATIENT WAS FASTINGP ERFORMED BY: ORTIZ Crowelin6[address] [facility] [place] [id number] Color Nom (U) Yellow Normal Comprehensi ve Internal Medicine Work Phone: Comment on above: PATIENT WAS FASTINGP ERFORMED BY: ORTIZ rCowelin6370 [address] RoadAtrium Health Carolinas Rehabilitation Charlottein [place] [id number] Glucose Ql (U) Negative Normal Comprehens trupti Internal Medicine Work Phone: Comment on above: PATIENT WAS FASTINGP ERFORMED BY: ORTIZ Crowelin6[address] [facility] [id number] Hemoglobin Ql (U) Negative Normal Compreh ensive Internal Medicine Work Phone: Comment on above: PATIENT WAS FASTINGP ERFORMED BY: ORTIZ Crowelin6[address] [facility] [id number] Ketones Ql (U) Negative Normal Comprehens trupti Internal Medicine Work Phone: Comment on above: PATIENT WAS FASTINGP ERFORMED BY: ORTIZ Crowelin6[address] [facility] [id number] Leukocyte esterase Test strip Ql (U) Negative Normal [facility] Work Phone: Comment on above: PATIENT WAS FASTINGP ERFORMED BY: ORTIZ Crowelin6[address] [facility] [id number] Microscopic observation LM Nom (Urine sed) See below: Normal [facility] Work Phone: Comment on above: Microscopic was derrick cated and was performed. PATIENT WAS FASTINGP ERFORMED BY: ORTIZ Crowelin6370 [address] RoadDublin [place] [id number] Nitrite Ql (U) Negative Normal Comprehens trupti Internal Medicine Work Phone: Comment on above: PATIENT WAS FASTINGP ERFORMED BY: ORTIZ Crowelin[address] [facility] [id number] pH (U) 5.5 [pH] Normal 5.0-7.5 [facility] Work Phone: Comment on above: PATIENT WAS FASTINGP ERFORMED BY: ORTIZ LabAleksandr CroweLfqoqg2813 [address] Roadblin [place] [id number] Protein Ql (U) 1+ Abnormal Comprehens trupti Internal Medicine Work Phone: Comment on above: PATIENT WAS FASTINGP ERFORMED BY: ORTIZ [facility] Vhrbfo3343 [address] [facility]in [place] [id number] Specific gravity Relative Density (U) 1.029 1 Normal 1.005-1.03 0 [facility] Work Phone: Comment on above: PATIENT WAS FASTINGP ERFORMED BY: ORTIZ Crowelin6[address] [facility] [id number] Urobilinogen Test strip mass conc (U) 0.2 mg/dL Normal 0.2-1.0 Comprehensiv e Internal Medicine Work Phone: Comment on above: PATIENT WAS FASTINGP ERFORMED BY: ORTIZ Huo Qhirvh1286 [address] [facility] [id number] VITAMIN B-12 (CYANOCOBALAMIN ) (42663)Ordered By: Lpn Rn Hospice on 12-05-2015 Cobalamin (Vitamin B12) mass conc 465 pg/mL Normal 211-946 [facility] Work Phone: Comment on above: PATIENT WAS FASTINGP ERFORMED BY: ORTIZ LabSaint [facility] Qrodiu8210 [address] [facility] [id number] Fecal Occult Blood , Office (23881)Ordered By: Gabino Bullock on 11-08-2015 Hemoglobin.gastrointes tinal Ql (St) Negative Normal [facility] Work Phone: VITAMIN B-12 (CYANOCOBALAMIN ) (14200)Ordered By: Lpn Rn Hospice on 08-27-2015 Cobalamin (Vitamin B12) mass conc 919 pg/mL Normal 211-946 [facility] Work Phone: Comment on above: PATIENT NOT FASTINGP ERFORMED BY: ORTIZ LabSaint [facility] Mcsbik3470 [facility] [id number] Information: [id number] Clinical Lists Update: Prelo broacher 05-26-2015 Anion gap 6 mmol/L Invalid Interpretation Code [facility] Work Phone: basophils as percent of blood leukocytes, manual count 0.5 % Invalid Interpretation Code [facility] Work Phone: BUN/Creatinine Ratio 18.8 mg/mg Invalid Interpretation Code [facility] Work Phone: Calcium 8.9 mg/dL Invalid Interpretation Code [facility] Work Phone: Chloride 106 mmol/L Invalid Interpretation Code [employer] Work Phone: CO2 31.0 mmol/L Invalid Interpretation Code [facility] Work Phone: Creatinine 0.85 mg/dL Invalid Interpretation Code [employer] Work Phone: eosinophils as percent of blood leukocytes, manual count 5.4 % High [facility] Work Phone: Erythrocytes (RBC) 4.14 10*6/uL Low [facility] Work Phone: Glucose 102 mg/dL Invalid Interpretation Code [facility] Work Phone: Hematocrit (HCT) 38.6 % Invalid Interpretation Code [facility] Work Phone: Hemoglobin (HGB) 12.6 g/dL Invalid Interpretation Code [facility] Work Phone: Lymphocytes/100 leukocytes 27.3 % Invalid Interpretation Code [facility] Work Phone: MCH 30.4 pg Invalid Interpretation Code [facility] Work Phone: MCHC 32.6 g/dL Invalid Interpretation Code [facility] Work Phone: MCV 93.2 fL Invalid Interpretation Code [facility] Work Phone: Monocytes/100 leukocytes 10.2 % High [facility] Work Phone: neutrophils, band form as percent of blood leukocytes, manual count 56.4 % Invalid Interpretation Code [facility] Work Phone: Platelets 162 10*3/mm3 Invalid Interpretation Code [facility] Work Phone: PMV by Bernard 9.6 fL Invalid Interpretation Code [facility] Work Phone: Potassium 4.3 mmol/L Invalid Interpretation Code [facility] Work Phone: RDW-CA 12.9 % Invalid Interpretation Code [employer] [facility] Work Phone: Sodium 143 mmol/L Invalid Interpretation Code [facility] Work Phone: Urea nitrogen 16 mg/dL Invalid Interpretation Code [facility] Work Phone: WBC (Leukocytes) 6.3 10*3/uL Invalid Interpretation Code [employer] Work Phone: Clinical Lists Update: Prelo broacher 04-26-2015 Cholesterol 136 mg/dL Invalid Interpretation Code [employer] Work Phone: HDL Cholesterol 49 mg/dL Invalid Interpretation Code [employer] Work Phone: LDL Cholesterol 66 mg/dL Invalid Interpretation Code [employer] Work Phone: Triglyceride 105 mg/dL Invalid Interpretation Code [employer] Work Phone: very low density lipoproteins 21 mg/dL Invalid Interpretation Code [employer] Work Phone: CBC W/AUTO DIFF WBC (10103)O rdered By: Lpn Rn Hospice on 10-19-2014 Basophils #/vol (Bld) 0.0 {x10E3/uL} Normal 0.0-0.2 [facility] Work Phone: Comment on above: PATIENT WAS FASTINGP ERFORMED BY: ORTIZ [employer] doubleTwist Rodriguez VirtwayYadkin [facility] Hospital [id number] Information: [id number] Basophils/100 WBC (Bld) 1 % Normal [facility] Work Phone: Comment on above: PATIENT WAS FASTINGP ERFORMED BY: eMinor RodriguezLucid Energy GroupYadkin Valley Community Hospital [id number] Information: [id number] Eosinophils #/vol (Bld) 0.2 {x10E3/uL} Normal 0.0-0.4 [facility] Work Phone: Comment on above: PATIENT WAS FASTINGP ERFORMED BY: [place] 7753070 [facility] [id number] Information: [id number] Eosinophils/100 WBC (Bld) 5 % Normal [facility] Work Phone: Comment on above: PATIENT WAS FASTINGP ERFORMED BY: [address] [id number] Information: [id number],[id number] Erythrocyte distribution width Ratio (RBC) 13.5 % Normal 12.3-15.4 [facility] Work Phone: Comment on above: PATIENT WAS FASTINGP ERFORMED BY: [address] [id number] Information: [id number] Hematocrit Volume Fraction (Bld) 39.1 % Normal 34.0-46.6 [facility] Work Phone: Comment on above: PATIENT WAS FASTINGP ERFORMED BY: [address] [id number] Information: [id number] Hemoglobin mass conc (Bld) 12.9 g/dL Normal 11.1-15.9 [facility] Work Phone: Comment on above: PATIENT WAS FASTINGP ERFORMED BY: [address] [id number] Information: [id number] Immature granulocytes #/vol (Bld) 0.0 {x10E3/uL} Normal 0.0-0.1 [facility] Work Phone: Comment on above: PATIENT WAS FASTINGP ERFORMED BY: [place] 7753070 [facility] [id number] Information: [id number] Immature granulocytes/100 WBC (Bld) 0 % Normal [facility] Work Phone: Comment on above: PATIENT WAS FASTINGP ERFORMED BY: [address] [id number] Information: [id number],[id number] Lymphocytes #/vol (Bld) 1.2 {x10E3/uL} Normal 0.7-3.1 [facility] Work Phone: Comment on above: PATIENT WAS FASTINGP ERFORMED BY: [address] [id number] Information: [id number] Lymphocytes/100 WBC (Bld) 25 % Normal [facility] Work Phone: Comment on above: PATIENT WAS FASTINGP ERFORMED BY: [address] [id number] Information: [id number],[id number] MCH Entitic mass (RBC) 29.8 pg Normal 26.6-33.0 [facility] Internal Medicine Work Phone: Comment on above: PATIENT WAS FASTINGP ERFORMED BY: [address] [id number] Information: [id number] MCHC mass conc (RBC) 33.0 g/dL Normal 31.5-35.7 [facility] Internal Medicine Work Phone: Comment on above: PATIENT WAS FASTINGP ERFORMED BY: [address] [id number] Information: [id number] MCV Entitic volume (RBC) 90 fL Normal 79-97 [facility] Work Phone: Comment on above: PATIENT WAS FASTINGP ERFORMED BY: [address] [id number] Information: [id number] Monocytes #/vol (Bld) 0.5 {x10E3/uL} Normal 0.1-0.9 [facility] Work Phone: Comment on above: PATIENT WAS FASTINGP ERFORMED BY: ORTIZ MeenaSaint [facility] Wteunk5542 [facility] [id number] Information: [id number] Monocytes/100 WBC (Bld) 10 % Normal [facility] Work Phone: Comment on above: PATIENT WAS FASTINGP ERFORMED BY: [place] 7753070 [facility] [id number] Information: [id number] Neutrophils #/vol (Bld) 2.9 {x10E3/uL} Normal 1.4-7.0 [facility] Work Phone: Comment on above: PATIENT WAS FASTINGP ERFORMED BY: ORTIZ [address] [id number] Information: [id number] Neutrophils/100 WBC (Bld) 59 % Normal Comprehensive Internal Medicine Work Phone: Comment on above: PATIENT WAS FASTINGP ERFORMED BY: ORTIZ [facility] [facility] [id number] Information: [id number] Platelets #/vol (Bld) 196 {x10E3/uL} Normal 150-379 [facility] Work Phone: Comment on above: PATIENT WAS FASTINGP ERFORMED BY: [facility] [facility] [id number] Information: [id number] RBC #/vol (Bld) 4.33 {x10E6/uL} Normal 3.77-5.28 [facility] Internal Medicine Work Phone: Comment on above: PATIENT WAS FASTINGP ERFORMED BY: [facility]6[address] [facility] [id number] Information: [id number] WBC #/vol (Bld) 4.9 {x10E3/uL} Normal 3.4-10.8 [facility] Internal Medicine Work Phone: Comment on above: PATIENT WAS FASTINGP ERFORMED BY: ORTIZ [facility] Dinvkt9063 [address] [facility] [place] [id number] Information: [id number] LIPID PANEL ([id number])Ordered B y: Lpn Rn Hospice on 10-19-2014 Cholesterol in HDL mass conc 47 mg/dL Normal [facility] Medicine Work Phone: Comment on above: According to ATP-III Guidelines, HDL-C >59 mg/dL is considered anegative risk factor for CHD. PATIENT WAS FASTINGP ERFORMED BY: ORTIZ LabCoaustyn CroweDbvrjp2395 [address] [facility] [id number] Cholesterol in LDL mass conc 148 mg/dL Abnormal 0-99 [facility] Work Phone: Comment on above: PATIENT WAS FASTINGP ERFORMED BY: ORTIZ Crowelin6[address] [facility] [id number] Cholesterol in LDL/Cholesterol in HDL mass ratio 3.1 {ratio_units} Normal 0.0-3.2 [facility] Work Phone: Comment on above: LDL/HDL Ratio Men Wo men 1/2 Avg.Risk 1.0 1.5 Avg.Risk 3.6 3.2 2X Avg.Risk 6.2 5.0 3X Avg.Risk 8.0 6.1 PATIENT WAS FASTINGP ERFORMED BY: ORTIZ Crowelin6[address] [facility] [id number] Cholesterol in VLDL mass conc 36 mg/dL Normal 5-40 [facility] Medicine Work Phone: Comment on above: PATIENT WAS FASTINGP ERFORMED BY: ORTIZ LabCoaustyn Deusqm3608 [address] [facility] [place] [id number] Cholesterol mass conc 231 mg/dL Abnormal 100-199 Com prehensive Internal Medicine Work Phone: Comment on above: PATIENT WAS FASTINGP ERFORMED BY: ORTIZ [facility] Gidxbg6175 [address] [facility] [place] [id number] Triglyceride mass conc 179 mg/dL Abnormal 0-149 Co mprehensive Internal Medicine Work Phone: Comment on above: PATIENT WAS FASTINGP ERFORMED BY: ORTIZ LabAleksandr CroweVeylwt8786 Rodriguez Roadblin [place] [id number] METABOLIC PANEL, COMPREHENSI VE ([id number])Ordered By: Lpn Rn Hospice on 10-19-2014 Albumin mass conc 4.3 g/dL Normal 3.5-4.8 Compreh ensive Internal Medicine Work Phone: Comment on above: PATIENT WAS FASTINGP ERFORMED BY: ORTIZ LabAleksandr CroweQwgktt8622 [address] [facility] [place] [id number] Albumin/Globulin mass ratio 2.2 {ratio} Normal 1.1-2.5 [facility] Medicine Work Phone: Comment on above: PATIENT WAS FASTINGP ERFORMED BY: ORTIZ LabAleksandr CroweUyhggb5753 [address] RoadAtrium Health Carolinas Rehabilitation Charlottein [place] [id number] ALP enzyme act/vol 73 [iU]/L Normal 39-117 Compre [facility] Internal Medicine Work Phone: Comment on above: PATIENT WAS FASTINGP ERFORMED BY: ORTIZ Crowelin6370 [address] [facility] [place] [id number] ALT enzyme act/vol 8 [iU]/L Normal 0-32 Compre [facility] Internal Medicine Work Phone: Comment on above: PATIENT WAS FASTINGP ERFORMED BY: ORTIZ Crowelin6370 [address] [facility] [place] [id number] AST enzyme act/vol 15 [iU]/L Normal 0-40 Compre [facility] Internal Medicine Work Phone: Comment on above: PATIENT WAS FASTINGP ERFORMED BY: ORTIZ LabAleksandr CroweBawaba2460 [address] [facility] [place] [id number] Bilirubin mass conc 0.3 mg/dL Normal 0.0-1.2 Compr [facility] Internal Medicine Work Phone: Comment on above: PATIENT WAS FASTINGP ERFORMED BY: ORTIZ LabAleksandr CroweRloxex8268 [address] [facility] [place] [id number] Calcium mass conc 9.6 mg/dL Normal 8.7-10.3 Compreh ensive Internal Medicine Work Phone: Comment on above: PATIENT WAS FASTINGP ERFORMED BY: ORTIZ LabAleksandr CroweRkpelk2415 [address] [facility] [place] [id number] Chloride molar conc 99 mmol/L Normal 97-108 Compr ehensive Internal Medicine Work Phone: Comment on above: PATIENT WAS FASTINGP ERFORMED BY: ORTIZ Ameya Xisosu0779 [address] [facility] [place] [id number] CO2 molar conc 27 mmol/L Normal 18-29 Comprehens trupti Internal Medicine Work Phone: Comment on above: PATIENT WAS FASTINGP ERFORMED BY: ORTIZ [facility] Igphcc9151 [address] [facility] [place] [id number] Creatinine mass conc 0.91 mg/dL Normal 0.57-1.00 Comp rehensive Internal Medicine Work Phone: Comment on above: PATIENT WAS FASTINGP ERFORMED BY: ORTIZ [facility] Akgvwt7069 [facility] [id number] GFR/1.73 sq M predicted among blacks CKD-EPI vol rate/area (S/P/Bld) 71 mL/min/1.73 Normal [facility] Internal Medicine Work Phone: Comment on above: PATIENT WAS FASTINGP ERFORMED BY: ORTIZ [facility]ledoSaint [facility] Uofiqd6813 [facility] [id number] GFR/1.73 sq M predicted among non-blacks CKD-EPI vol rate/area (S/P/Bld) 62 mL/min/1.73 Normal Comprehensiv e Internal Medicine Work Phone: Comment on above: PATIENT WAS FASTINGP ERFORMED BY: ORTIZ [facility]Saint [facility] Xdhpuy5010 [address] [facility] [id number] Globulin mass conc (S) 2.0 g/dL Normal 1.5-4.5 Co mprehensive Internal Medicine Work Phone: Comment on above: PATIENT WAS FASTINGP ERFORMED BY: ORTIZ [facility]Saint [facility] Nssavl2166 [address] [facility] [place] [id number] Glucose mass conc 82 mg/dL Normal 65-99 Compreh ensive Internal Medicine Work Phone: Comment on above: PATIENT WAS FASTINGP ERFORMED BY: ORTIZ [facility] Qivvax8134 [address] [facility] [place] [id number] Potassium molar conc 4.6 mmol/L Normal 3.5-5.2 Comp rehensive Internal Medicine Work Phone: Comment on above: PATIENT WAS FASTINGP ERFORMED BY: ORTIZ [facility] Qxamta5183 [address] [facility] [place] [id number] Protein mass conc 6.3 g/dL Normal 6.0-8.5 Compreh ensive Internal Medicine Work Phone: Comment on above: PATIENT WAS FASTINGP ERFORMED BY: ORTIZ LabCo Pkrayr3119 [address] [facility] [place] [id number] Sodium molar conc 141 mmol/L Normal 134-144 Compreh ensive Internal Medicine Work Phone: Comment on above: PATIENT WAS FASTINGP ERFORMED BY: ORTIZ LabAleksandr CroweNbwukl1499 [address] [facility] [id number] Urea nitrogen mass conc 11 mg/dL Normal 8-27 [facility] Medicine Work Phone: Comment on above: PATIENT WAS FASTINGP ERFORMED BY: ORTIZ [facility] Pdsmcz8214 [address] [facility] [id number] Urea nitrogen/Creatinine mass ratio 12 mg/mg Normal 11-26 [facility] Medicine Work Phone: Comment on above: PATIENT WAS FASTINGP ERFORMED BY: ORTIZ Crowelin6370 [facility] [id number] MICROALBUMINOrdered By: Syst em Cigarette Making Examiner on 10-19-2014 Albumin DL <= 20 mg/L mass conc (U) 10.7 ug/mL Normal 0.0-17.0 [facility] Work Phone: Comment on above: PATIENT WAS FASTINGP ERFORMED BY: ORTIZ LabCo Untgqz4965 [address] [facility] [place] [id number] Albumin/Creatinine mass ratio (U) 8.1 {mg/g_creat} Normal 0.0-30.0 [facility] Work Phone: Comment on above: PATIENT WAS FASTINGP ERFORMED BY: ORTIZ [facility] Vioerj2982 [address] [facility] [id number] Creatinine mass conc (U) 132.3 mg/dL Normal 15.0-278.0 [facility] Work Phone: Comment on above: PATIENT WAS FASTINGP ERFORMED BY: ORTIZ Ameyaaustyn CroweMttjjh7286 Rodriguez RoadDublin [place] [id number] TSH ([id number])Ordered By: Syste m Cigarette Making Examiner on 10-19-2014 Thyrotropin Qn 1.170 {uIU/mL} Normal 0.450-4.50 0 [facility] Medicine Work Phone: Comment on above: PATIENT WAS FASTINGP ERFORMED BY: ORTIZ LabAleksandr CroweZobbln9903 [address] [facility] [place] [id number] URINALYSIS, W/ MICRO ([id number]) Ordered By: Lpn Rn Hospice on 10-19-2014 Appearance Nom (U) Clear Normal Compre hensive Internal Medicine Work Phone: Comment on above: PATIENT WAS FASTINGP ERFORMED BY: ORTIZ LabAleksandr CroweKafsla9210 Rodriguez RoadDuin [place] [id number] Bilirubin Ql (U) Negative Normal Comprehe nsive Internal Medicine Work Phone: Comment on above: PATIENT WAS FASTINGP ERFORMED BY: ORTIZ LabAleksandr CroweYpxhvs1746 [address] RoadDublin [place] [id number] Color Nom (U) Yellow Normal Comprehensi ve Internal Medicine Work Phone: Comment on above: PATIENT WAS FASTINGP ERFORMED BY: ORTIZ LabAleksandr CroweUmglvi8128 [address] RoadDublin [place] [id number] Glucose Ql (U) Negative Normal Comprehens trupti Internal Medicine Work Phone: Comment on above: PATIENT WAS FASTINGP ERFORMED BY: ORITZ LabAleksandr Ynhfvo7606 [address] RoadDublin [place] [id number] Hemoglobin Ql (U) Negative Normal Compreh ensive Internal Medicine Work Phone: Comment on above: PATIENT WAS FASTINGP ERFORMED BY: ORTIZ LabAleksandr CroweGmvuas4952 [address] RoadDublin [place] [id number] Ketones Ql (U) Negative Normal Comprehens trupti Internal Medicine Work Phone: Comment on above: PATIENT WAS FASTINGP ERFORMED BY: ORTIZ [facility] Abgxxj2279 [address] RoadDublin [place] [id number] Leukocyte esterase Test strip Ql (U) Negative Normal [facility] Work Phone: Comment on above: PATIENT WAS FASTINGP ERFORMED BY: ORTIZ [facility] Cbigec1285 [address] RoadDublin [place] [id number] Microscopic observation LM Nom (Urine sed) See below: Normal [facility] Work Phone: Comment on above: Microscopic was derrick cated and was performed. PATIENT WAS FASTINGP ERFORMED BY: ORTIZ [facility] Exldli8658 Rodriguez RoadDublin [place] [id number] Microscopic observation LM Nom (Urine sed) MICRON Normal [facility] Work Phone: Comment on above: Microscopic follows if indicated. PATIENT WAS FASTINGP ERFORMED BY: ORTIZ [facility] Mjwlkb3358 Rodriguez RoadDublin [place] [id number] Nitrite Ql (U) Negative Normal Comprehens [facility] Internal Medicine Work Phone: Comment on above: PATIENT WAS FASTINGP ERFORMED BY: ORTIZ LabCoaustyn Xmnjet7795 [address] RoadDublin [place] [id number] pH (U) 7.0 [pH] Normal 5.0-7.5 [facility] Work Phone: Comment on above: PATIENT WAS FASTINGP ERFORMED BY: ORTIZ [facility] Pvxtnc9392 [address] RoadDublin [place] [id number] Protein Ql (U) Trace Normal Comprehens [facility] Internal Medicine Work Phone: Comment on above: PATIENT WAS FASTINGP ERFORMED BY: ORTIZ [facility] Rrdfkh7775 [address] RoadDublin [place] [id number] Specific gravity Relative Density (U) 1.017 1 Normal 1.005-1.03 0 [facility] Medicine Work Phone: Comment on above: PATIENT WAS FASTINGP ERFORMED BY: ORTIZ [facility] Yxjdac2425 [address] RoadDublin [place] [id number] Urobilinogen Test strip mass conc (U) 0.2 mg/dL Normal 0.0-1.9 Comprehensiv e Internal Medicine Work Phone: Comment on above: PATIENT WAS FASTINGP ERFORMED BY: [employer] Jkocem7422 [facility] [id number] Vitamin D Hydroxy (58567)Ord ered By: Lpn Rn Hospice on 10-19-2014 25-Hydroxyvitamin D2+25-Hydroxyvitamin D3 mass conc 39.6 ng/mL Normal 30.0-100.0 [facility] Work Phone: Comment on above: Vitamin D deficiency has been defined by the [place] ofMedicine and an Endocrine Society practice guideline as alevel of serum 25-OH vitamin D less than 20 ng/mL (1,2).The Endocrine Society went on to further define vitamin Dinsufficiency as a level between 21 and 29 ng/mL (2).1. IOM ([place] of Medicine). 2010. Dietary reference intakes for calcium and D. [place]: The National Academies Press.2. Allie MF, Emile NC, Natalie POOLE, et al. Evaluation, treatment, and prevention of vitamin D deficiency: an Endocrine Society clinical practice guideline. JCEM. 2010; 96(7):1911-30. PATIENT WAS FASTINGP ERFORMED BY: Vikilin6370 [facility] [id number] FECAL OCCULT HGB ASSAY- tube s sent home (74375)Ordered By: Cady Huber on 10-12-2014 Hemoglobin.gastrointes tinal Ql (St) Negative Normal [facility] Medicine Work Phone: Office Visit: [facility] 10-10-19 15 cardiac risk group C Invalid Interpretation Code [facility] Work Phone: General cardiovascular disease 10Y risk [#] [place]o'Agoyuan N/A Invalid Interpretation Code [facility] Work Phone: Replaced Document: Escobar ROMERO Observationson 10-10-2014 electrocardiogram interpretation Sinus Bradycardia WITHIN NORMAL LIMITS Invalid Interpretation Code [facility] Work Phone: GE use only - for LinkLogic import when terms are not otherwise specified 438 ms Invalid Interpretation Code [facility] Work Phone: P wave axis, electrocardiogram 33 deg Invalid Interpretation Code [facility] Work Phone: ID interval, electrocardiogram 164 ms Invalid Interpretation Code [facility] Work Phone: Pulse (Heart Rate) 55 /min Invalid Interpretation Code [facility] Work Phone: QRS axis, electrocardiogram 7 deg Invalid Interpretation Code [facility] Work Phone: QRS duration, electrocardiogram 90 ms Invalid Interpretation Code [facility] Work Phone: QT interval, electrocardiogram new path ms Invalid Interpretation Code [facility] Work Phone: T wave axis, electrocardiogram 41 deg Invalid Interpretation Code [facility] Work Phone: CBC WITH MANUAL DIFF (85711) Ordered By: Lpn Rn Hospice on 06-26-2014 Basophils #/vol (Bld) 0.0 {x10E3/uL} Normal 0.0-0.2 [facility] Work Phone: Comment on above: PATIENT WAS FASTINGP ERFORMED BY: [employer] [facility]staY[facility] [id number] Information: [id number] Basophils/100 WBC (Bld) 1 % Normal [facility] Work Phone: Comment on above: PATIENT WAS FASTINGP ERFORMED BY: [employer] Sportsdata6370 [facility]chographYad[facility] [id number] Information: [id number] Eosinophils #/vol (Bld) 0.2 {x10E3/uL} Normal 0.0-0.4 [facility] Work Phone: Comment on above: PATIENT WAS FASTINGP ERFORMED BY: [employer] AlcrestaYadkin Valley [facility] Hospital [id number] Information: [id number] Eosinophils/100 WBC (Bld) 3 % Normal [facility] Work Phone: Comment on above: PATIENT WAS FASTINGP ERFORMED BY: Silistixrp Alcrestain [place] [id number] Information: [id number] Erythrocyte distribution width Ratio (RBC) 13.4 % Normal 12.3-15.4 [facility] Work Phone: Comment on above: PATIENT WAS FASTINGP ERFORMED BY: [place] 7753070 [facility] [id number] Information: [id number] Hematocrit Volume Fraction (Bld) 40.5 % Normal 34.0-46.6 [facility] Work Phone: Comment on above: PATIENT WAS FASTINGP ERFORMED BY: [address] [id number] Information: [id number] Hemoglobin mass conc (Bld) 13.1 g/dL Normal 11.1-15.9 [facility] Work Phone: Comment on above: PATIENT WAS FASTINGP ERFORMED BY: [place] 7753070 [facility] [id number] Information: [id number] Immature granulocytes #/vol (Bld) 0.0 {x10E3/uL} Normal 0.0-0.1 [facility] Work Phone: Comment on above: PATIENT WAS FASTINGP ERFORMED BY: [place] 7753070 [facility] [id number] Information: [id number] Immature granulocytes/100 WBC (Bld) 0 % Normal [facility] Work Phone: Comment on above: PATIENT WAS FASTINGP ERFORMED BY: [place] 7753070 [facility] [id number] Information: [id number] Lymphocytes #/vol (Bld) 1.1 {x10E3/uL} Normal 0.7-3.1 [facility] Work Phone: Comment on above: PATIENT WAS FASTINGP ERFORMED BY: [place] 7753070 [facility] [id number] Information: [id number] Lymphocytes/100 WBC (Bld) 21 % Normal [facility] Work Phone: Comment on above: PATIENT WAS FASTINGP ERFORMED BY: [place] 7753070 [facility] [id number] Information: [id number] MCH Entitic mass (RBC) 29.4 pg Normal 26.6-33.0 [facility] Internal Medicine Work Phone: Comment on above: PATIENT WAS FASTINGP ERFORMED BY: [address] [id number] Information: [id number] MCHC mass conc (RBC) 32.3 g/dL Normal 31.5-35.7 [facility] Internal Medicine Work Phone: Comment on above: PATIENT WAS FASTINGP ERFORMED BY: [address] [id number] Information: [id number] MCV Entitic volume (RBC) 91 fL Normal 79-97 [facility] Work Phone: Comment on above: PATIENT WAS FASTINGP ERFORMED BY: [address] [id number] Information: [id number] Monocytes #/vol (Bld) 0.5 {x10E3/uL} Normal 0.1-0.9 [facility] Work Phone: Comment on above: PATIENT WAS FASTINGP ERFORMED BY: [address] [id number] Information: [id number] Monocytes/100 WBC (Bld) 10 % Normal [facility] Work Phone: Comment on above: PATIENT WAS FASTINGP ERFORMED BY: [address] [id number] Information: [id number] Neutrophils #/vol (Bld) 3.7 {x10E3/uL} Normal 1.4-7.0 [facility] Work Phone: Comment on above: PATIENT WAS FASTINGP ERFORMED BY: ORTIZ Sifuentes [facility] [id number] Information: [id number] Neutrophils/100 WBC (Bld) 65 % Normal [facility] Work Phone: Comment on above: PATIENT WAS FASTINGP ERFORMED BY: ORTIZ Hou Mqavgp9445 [facility] [id number] Information: [id number] Platelets #/vol (Bld) 198 {x10E3/uL} Normal 150-379 [facility] Work Phone: Comment on above: PATIENT WAS FASTINGP ERFORMED BY: ORTIZ MeenaSaint [facility] Lftejn6902 [facility] [id number] Information: [id number] RBC #/vol (Bld) 4.45 {x10E6/uL} Normal 3.77-5.28 [facility] Internal Medicine Work Phone: Comment on above: PATIENT WAS FASTINGP ERFORMED BY: ORTIZ Hou Mrbtaa2871 [facility] [id number] Information: [id number] WBC #/vol (Bld) 5.6 {x10E3/uL} Normal 3.4-10.8 [facility] Internal Medicine Work Phone: Comment on above: PATIENT WAS FASTINGP ERFORMED BY: [place] 7753070 [facility] [id number] Information: [id number] LIPID PANEL ([id number])Ordered B y: Lpn Rn Hospice on 06-26-2014 Cholesterol in HDL mass conc 46 mg/dL Normal [facility] Work Phone: Comment on above: According to ATP-III Guidelines, HDL-C >59 mg/dL is considered anegative risk factor for CHD. PATIENT WAS FASTINGP ERFORMED BY: [place] 7753070 [facility] [id number] Cholesterol in LDL mass conc 130 mg/dL Abnormal 0-99 [facility] Work Phone: Comment on above: PATIENT WAS FASTINGP ERFORMED BY: ORTIZ Chester6370 [facility] [id number] Cholesterol in LDL/Cholesterol in HDL mass ratio 2.8 {ratio_units} Normal 0.0-3.2 [facility] Work Phone: Comment on above: LDL/HDL Ratio Men Wo men 1/2 Avg.Risk 1.0 1.5 Avg.Risk 3.6 3.2 2X Avg.Risk 6.2 5.0 3X Avg.Risk 8.0 6.1 PATIENT WAS FASTINGP ERFORMED BY: ORTIZ Chester6370 [facility] [id number] Cholesterol in VLDL mass conc 41 mg/dL Abnormal 5-40 [facility] Work Phone: Comment on above: PATIENT WAS FASTINGP ERFORMED BY: ORTIZ Chester6370 [facility] [id number] Cholesterol mass conc 217 mg/dL Abnormal 100-199 Com prehensive Internal Medicine Work Phone: Comment on above: PATIENT WAS FASTINGP ERFORMED BY: ORTIZ Chester6370 [facility] [id number] Triglyceride mass conc 203 mg/dL Abnormal 0-149 Co mprehensive Internal Medicine Work Phone: Comment on above: PATIENT WAS FASTINGP ERFORMED BY: ORTIZ Chester6370 [facility] [id number] METABOLIC PANEL, COMPREHENSI VE (02454)Ordered By: Lpn Rn Hospice on 06-26-2014 Albumin mass conc 4.0 g/dL Normal 3.5-4.8 Compreh ensive Internal Medicine Work Phone: Comment on above: PATIENT WAS FASTINGP ERFORMED BY: ORTIZ Crowelin6370 [facility] [id number] Albumin/Globulin mass ratio 1.7 {ratio} Normal 1.1-2.5 [facility] Work Phone: Comment on above: PATIENT WAS FASTINGP ERFORMED BY: ORTIZ [facility] Akucpy4228 [address] RoadDublin [place] [id number] ALP enzyme act/vol 80 [iU]/L Normal 39-117 [facility] Work Phone: Comment on above: PATIENT WAS FASTINGP ERFORMED BY: ORTIZ [facility] Zjdnyc6396 [address] RoadDublin [place] [id number] ALT enzyme act/vol 8 [iU]/L Normal 0-32 [facility] Internal Medicine Work Phone: Comment on above: PATIENT WAS FASTINGP ERFORMED BY: ORTIZ LabCoaustyn CroweWyzjju5445 [address] RoadDublin [place] [id number] AST enzyme act/vol 10 [iU]/L Normal 0-40 [facility] Internal Medicine Work Phone: Comment on above: PATIENT WAS FASTINGP ERFORMED BY: ORTIZ LabAleksandr CroweWagppq0821 [address] RoadDublin [place] [id number] Bilirubin mass conc 0.3 mg/dL Normal 0.0-1.2 Compr ensive Internal Medicine Work Phone: Comment on above: PATIENT WAS FASTINGP ERFORMED BY: ORTIZ LabAleksandr CroweKfvsxj4174 [address] RoadDublin [place] [id number] Calcium mass conc 9.4 mg/dL Normal 8.6-10.2 Compreh ensive Internal Medicine Work Phone: Comment on above: PATIENT WAS FASTINGP ERFORMED BY: ORTIZ [facility] Aioutl6650 [address] RoadDublin [place] [id number] Chloride molar conc 100 mmol/L Normal 97-108 Compr ensive Internal Medicine Work Phone: Comment on above: PATIENT WAS FASTINGP ERFORMED BY: ORTIZ [facility] Lbqonx5612 [address] RoadDublin [place] [id number] CO2 molar conc 26 mmol/L Normal 18-29 Comprehens trupti Internal Medicine Work Phone: Comment on above: PATIENT WAS FASTINGP ERFORMED BY: ORTIZ [facility] Tcyepi9306 [address] RoadDublin [place] [id number] Creatinine mass conc 0.80 mg/dL Normal 0.57-1.00 Comp rehensive Internal Medicine Work Phone: Comment on above: PATIENT WAS FASTINGP ERFORMED BY: ORTIZ MeenaAleksandr Chester6370 [facility] [id number] GFR/1.73 sq M predicted among blacks CKD-EPI vol rate/area (S/P/Bld) 83 mL/min/1.73 Normal [facility] Work Phone: Comment on above: PATIENT WAS FASTINGP ERFORMED BY: ORTIZ Crowelin6370 [facility] [id number] GFR/1.73 sq M predicted among non-blacks CKD-EPI vol rate/area (S/P/Bld) 72 mL/min/1.73 Normal Comprehensiv e Internal Medicine Work Phone: Comment on above: PATIENT WAS FASTINGP ERFORMED BY: ORTIZ Crowelin6370 [facility] [id number] Globulin mass conc (S) 2.3 g/dL Normal 1.5-4.5 [facility] Internal Medicine Work Phone: Comment on above: PATIENT WAS FASTINGP ERFORMED BY: ORTIZ Crowelin6370 [facility] [id number] Glucose mass conc 90 mg/dL Normal 65-99 Compreh ensive Internal Medicine Work Phone: Comment on above: PATIENT WAS FASTINGP ERFORMED BY: ORTIZ Crowelin6370 [facility] [id number] Potassium molar conc 4.0 mmol/L Normal 3.5-5.2 Comp rehensive Internal Medicine Work Phone: Comment on above: PATIENT WAS FASTINGP ERFORMED BY: ORTIZ LabAleksandr CroweMatlxw7608 [facility] [id number] Protein mass conc 6.3 g/dL Normal 6.0-8.5 Compreh ensive Internal Medicine Work Phone: Comment on above: PATIENT WAS FASTINGP ERFORMED BY: ORTIZ LabAleksandr CroweJmxsht1807 [facility] [id number] Sodium molar conc 142 mmol/L Normal 134-144 Compreh ensive Internal Medicine Work Phone: Comment on above: PATIENT WAS FASTINGP ERFORMED BY: ORTIZ Nilda Chester6370 [facility] [id number] Urea nitrogen mass conc 10 mg/dL Normal 8-27 [facility] Work Phone: Comment on above: PATIENT WAS FASTINGP ERFORMED BY: ORTIZ Ameya Viwnhp2329 [facility] [id number] Urea nitrogen/Creatinine mass ratio 13 mg/mg Normal 11-26 [facility] Work Phone: Comment on above: PATIENT WAS FASTINGP ERFORMED BY: ORTIZ Ameayaustyn CroweItjcah3663 [facility] [id number] MICROALBUMINOrdered By: [employer] em Cigarette Making Examiner on 06-26-2014 Albumin DL <= 20 mg/L mass conc (U) 12.3 ug/mL Normal 0.0-17.0 [facility] Work Phone: Comment on above: PATIENT WAS FASTINGP ERFORMED BY: ORTIZ Ameya Vdkisn3154 [facility] [id number] Albumin/Creatinine mass ratio (U) 7.0 {mg/g_creat} Normal 0.0-30.0 [facility] Work Phone: Comment on above: PATIENT WAS FASTINGP ERFORMED BY: ORTIZ Ameya Vyxdei7695 [facility] [id number] Creatinine mass conc (U) 176.5 mg/dL Normal 15.0-278.0 [facility] Work Phone: Comment on above: PATIENT WAS FASTINGP ERFORMED BY: ORTIZ Ameya Lzmtbk2528 [facility] [id number] TSH ([id number])Ordered By: [employer] m Cigarette Making Examiner on 06-26-2014 Thyrotropin Qn 1.220 {uIU/mL} Normal 0.450-4.50 0 [facility] Work Phone: Comment on above: PATIENT WAS FASTINGP ERFORMED BY: CB [facility] Jorxhv8452 [address] RoadDublin [place] [id number] URINALYSIS, W/ MICRO ([id number]) Ordered By: Lpn Rn Hospice on 06-26-2014 Appearance Nom (U) Clear Normal Compre hensive Internal Medicine Work Phone: Comment on above: PATIENT WAS FASTINGP ERFORMED BY: ORTIZ [facility] Zfofqj0473 [address] RoadDublin [place] [id number] Bilirubin Ql (U) Negative Normal Comprehe nsive Internal Medicine Work Phone: Comment on above: PATIENT WAS FASTINGP ERFORMED BY: ORTIZ [facility] Alwgux1087 [address] RoadDublin [place] [id number] Color Nom (U) Yellow Normal Comprehensi ve Internal Medicine Work Phone: Comment on above: PATIENT WAS FASTINGP ERFORMED BY: ORTIZ [facility] Ncocre5573 [address] RoadDublin [place] [id number] Glucose Ql (U) Negative Normal Comprehens trupti Internal Medicine Work Phone: Comment on above: PATIENT WAS FASTINGP ERFORMED BY: ORTIZ [facility] Pwvuqw3128 [address] RoadDublin [place] [id number] Hemoglobin Ql (U) Negative Normal Compreh ensive Internal Medicine Work Phone: Comment on above: PATIENT WAS FASTINGP ERFORMED BY: ORTIZ [facility] Vgjtfk9870 [address] RoadDublin [place] [id number] Ketones Ql (U) Negative Normal Comprehens trupti Internal Medicine Work Phone: Comment on above: PATIENT WAS FASTINGP ERFORMED BY: CB [facility] Cfgxwa8602 [address] RoadDublin [place] [id number] Leukocyte esterase Test strip Ql (U) Negative Normal [facility] Work Phone: Comment on above: PATIENT WAS FASTINGP ERFORMED BY: CB [facility] Ynilfd9270 [address] RoadDublin [place] [id number] Microscopic observation LM Nom (Urine sed) See below: Normal [facility] Work Phone: Comment on above: Microscopic was derrick cated and was performed. PATIENT WAS FASTINGP ERFORMED BY: ORTIZ [facility] Xftxbb5689 [address] RoadDublin [place] [id number] Microscopic observation LM Nom (Urine sed) MICRON Normal [facility] Work Phone: Comment on above: Microscopic follows if indicated. PATIENT WAS FASTINGP ERFORMED BY: ORTIZ [facility] Jygxui7834 [address] RoadDublin [place] [id number] Nitrite Ql (U) Negative Normal Comprehens trupti Internal Medicine Work Phone: Comment on above: PATIENT WAS FASTINGP ERFORMED BY: CB [facility] Chtpvk1080 [address] RoadDublin [place] [id number] pH (U) 5.5 [pH] Normal 5.0-7.5 [facility] Work Phone: Comment on above: PATIENT WAS FASTINGP ERFORMED BY: ORTIZ [facility] Zlmxgb5222 [address] RoadDublin [place] [id number] Protein Ql (U) Negative Normal Comprehens trupti Internal Medicine Work Phone: Comment on above: PATIENT WAS FASTINGP ERFORMED BY: [facility] Wulijy2772 [address] RoadDublin [place] [id number] Specific gravity Relative Density (U) 1.020 1 Normal 1.005-1.03 0 [facility] Work Phone: Comment on above: PATIENT WAS FASTINGP ERFORMED BY: [facility] Imcuho2251 [address] RoadDublin [place] [id number] Urobilinogen Test strip mass conc (U) 0.2 mg/dL Normal 0.0-1.9 Comprehensiv e Internal Medicine Work Phone: Comment on above: PATIENT WAS FASTINGP ERFORMED BY: [facility] Qyhnmg9869 [address] RoadDublin [place] [id number] Vitamin D Hydroxy (11384)Ord ered By: Lpn Rn Hospice on 06-26-2014 25-Hydroxyvitamin D2+25-Hydroxyvitamin D3 mass conc 38.9 ng/mL Normal 30.0-100.0 [facility] Work Phone: Comment on above: Vitamin D deficiency has been defined by the [place] of[place]icine and an Endocrine Society practice guideline as alevel of serum 25-OH vitamin D less than 20 ng/mL (1,2).The Endocrine Society went on to further define vitamin Dinsufficiency as a level between 21 and 29 ng/mL (2).1. IOM ([place] of Medicine). 2010. Dietary reference intakes for calcium and D. [place]: The National Academies Press.2. Allie MF, Emile NC, Natalie POOLE, et al. Evaluation, treatment, and prevention of vitamin D deficiency: an Endocrine Society clinical practice guideline. JCEM. 2010; 96(7):1911-30. PATIENT WAS FASTINGP ERFORMED BY: Yakarouler [facility] Pxtwne0569 [address] Virtwayblin [place] [id number] URINE IBRAHIMA CULTURE-IDENTIFICA [place] (20965)Ordered By: Lpn Rn Hospice on 04-17-2014 Bacteria identified Cx Nom (U) Escherichia coli Abnormal [facility] Work Phone: Comment on above: Greater than 100,000 colony forming units per mL PATIENT NOT FASTINGP ERFORMED BY: CB [facility] Tfmcuc5364 [address] RoadDublin [place] [id number] Information: [id number] Bacteria identified Cx Nom (U) Final report Abnormal [facility] Work Phone: Comment on above: PATIENT NOT FASTINGP ERFORMED BY: Yakarouler [facility] Aybkzv0223 [address] RoadDublin [place] [id number] Information: [id number] Other Antibiotic [facility] [employer] [facility] prehensive Internal Medicine Work Phone: Comment on above: S = Susceptibl e; I = Intermediate; R = Resistant P = Positive; N = Negative MICS are expressed in micrograms per mL Antibiotic RSLT#1 RSLT#2 RSLT#3 RSLT#4Amoxicillin/Clavulanic Acid SAmpicillin SCefepime SCeftriaxone SCefuroxime SCephalothin SCiprofloxacin SErtapenem SGentamicin SImipenem SLevofloxacin SNitrofurantoin SPiperacillin STetracycline STobramycin STrimethoprim/Sulfa S PATIENT NOT FASTINGP ERFORMED BY: Vikilin6370 [facility] [id number] Information: [id number] Urinalysis, Office (08285)Or dered By: Alyson Dixon on 04-17-2014 Bilirubin [...] Medicine Work Phone: CBC WITH MANUAL DIFF (48108) Ordered By: Lpn Rn Hospice on 04-06-2014 Basophils #/vol (Bld) 0.0 {x10E3/uL} Normal 0.0-0.2 [facility] Work Phone: Comment on above: PATIENT NOT FASTINGP ERFORMED BY: [employer] Lnvbmg8496 [facility] [id number] Information: [id number] Basophils/100 WBC (Bld) 0 % Normal 0-3 [facility] Work Phone: Comment on above: PATIENT NOT FASTINGP ERFORMED BY: [employer] Wabxhv9223 [facility] [id number] Information: [id number] Eosinophils #/vol (Bld) 0.1 {x10E3/uL} Normal 0.0-0.4 [facility] Work Phone: Comment on above: PATIENT NOT FASTINGP ERFORMED BY: ORTIZ Kiser70 [facility] [id number] Information: [id number] Eosinophils/100 WBC (Bld) 2 % Normal 0-5 [facility] Work Phone: Comment on above: PATIENT NOT FASTINGP ERFORMED BY: ORTIZ LabCo[address] [id number] Information: [id number] Erythrocyte distribution width Ratio (RBC) 13.5 % Normal 12.3-15.4 [facility] Work Phone: Comment on above: PATIENT NOT FASTINGP ERFORMED BY: ORTIZ RobledoSaint [facility] Qmpkzn6987 [facility] [id number] Information: [id number] Hematocrit Volume Fraction (Bld) 38.1 % Normal 34.0-46.6 [facility] Work Phone: Comment on above: PATIENT NOT FASTINGP ERFORMED BY: ORTIZ Robledo[address] [id number] Information: [id number],[id number] Hemoglobin mass conc (Bld) 12.8 g/dL Normal 11.1-15.9 [facility] Work Phone: Comment on above: PATIENT NOT FASTINGP ERFORMED BY: ORTIZ LabCo[address] [id number] Information: [id number] Immature granulocytes #/vol (Bld) 0.0 {x10E3/uL} Normal 0.0-0.1 [facility] Work Phone: Comment on above: PATIENT NOT FASTINGP ERFORMED BY: ORTIZ LabCoPeter [place] 5138870 [facility] [id number] Information: [id number],Q71714 Immature granulocytes/100 WBC (Bld) 0 % Normal 0-2 [facility] Work Phone: Comment on above: PATIENT NOT FASTINGP ERFORMED BY: [facility]6370 [facility] [id number] Information: [id number],[id number] Lymphocytes #/vol (Bld) 1.5 {x10E3/uL} Normal 0.7-3.1 [facility] Work Phone: Comment on above: PATIENT NOT FASTINGP ERFORMED BY: [address] [id number] Information: [id number],[id number] Lymphocytes/100 WBC (Bld) 26 % Normal 14-46 [facility] Work Phone: Comment on above: PATIENT NOT FASTINGP ERFORMED BY: [address] [id number] Information: [id number],[id number] MCH Entitic mass (RBC) 31.1 pg Normal 26.6-33.0 [facility] Internal Medicine Work Phone: Comment on above: PATIENT NOT FASTINGP ERFORMED BY: [address] [id number] Information: 559774,[id number] MCHC mass conc (RBC) 33.6 g/dL Normal 31.5-35.7 [facility] Internal Medicine Work Phone: Comment on above: PATIENT NOT FASTINGP ERFORMED BY: [address] [id number] Information: 976912,[id number] MCV Entitic volume (RBC) 93 fL Normal 79-[address] [facility] Internal Medicine Work Phone: Comment on above: PATIENT NOT FASTINGP ERFORMED BY: [place] 7753070 [facility] [id number] Information: [id number] Monocytes #/vol (Bld) 0.5 {x10E3/uL} Normal 0.1-0.9 [facility] Work Phone: Comment on above: PATIENT NOT FASTINGP ERFORMED BY: ORTIZ LabCoaustyn CroweFlytkd8682 [facility] [id number] Information: [id number] Monocytes/100 WBC (Bld) 9 % Normal 4-12 [facility] Work Phone: Comment on above: PATIENT NOT FASTINGP ERFORMED BY: ORTIZ Hou Xmmbxj7480 [facility] [id number] Information: [id number] Neutrophils #/vol (Bld) 3.5 {x10E3/uL} Normal 1.4-7.0 [facility] Work Phone: Comment on above: PATIENT NOT FASTINGP ERFORMED BY: ORTIZ Crowelin6370 [facility] [id number] Information: 455014,[id number] Neutrophils/100 WBC (Bld) 63 % Normal 40-74 [facility] Work Phone: Comment on above: PATIENT NOT FASTINGP ERFORMED BY: ORTIZ LabCo Nivikr0796 [facility] [id number] Information: [id number],Q38001 Platelets #/vol (Bld) 193 {x10E3/uL} Normal 150-379 [facility] Work Phone: Comment on above: PATIENT NOT FASTINGP ERFORMED BY: ORTIZ LabCoMeadowview Psychiatric HospitalYivjud2670 [facility] [id number] Information: [id number],[id number] RBC #/vol (Bld) 4.12 {x10E6/uL} Normal 3.77-5.28 [facility] Internal Medicine Work Phone: Comment on above: PATIENT NOT FASTINGP ERFORMED BY: ORTIZ LabCo Eitoli9504 [facility] [id number] Information: [id number],[id number] WBC #/vol (Bld) 5.6 {x10E3/uL} Normal 3.4-10.8 [facility] Internal Medicine Work Phone: Comment on above: PATIENT NOT FASTINGP ERFORMED BY: ORTIZ [facility] Svfmae1724 [address] RoadDublin [place] [id number] Information: 688283,[id number] LIPID PANEL (09056)Ordered B y: Lpn Rn Hospice on 04-06-2014 Cholesterol in HDL mass conc 54 mg/dL Normal [facility] Work Phone: Comment on above: According to ATP-III Guidelines, HDL-C >59 mg/dL is considered anegative risk factor for CHD. PATIENT NOT FASTINGP ERFORMED BY: CB [facility] Mgsvdt1837 [address] RoadDublin [place] [id number] Cholesterol in LDL mass conc 63 mg/dL Normal 0-99 [facility] Work Phone: Comment on above: PATIENT NOT FASTINGP ERFORMED BY: ORTIZ [facility] Bppaiv0271 [address] RoadDublin [place] [id number] Cholesterol in LDL/Cholesterol in HDL mass ratio 1.2 {ratio_units} Normal 0.0-3.2 [facility] Work Phone: Comment on above: PATIENT NOT FASTINGP ERFORMED BY: ORTIZ [facility] Bgemon9795 [address] RoadDublin [place] [id number] Cholesterol in VLDL mass conc 41 mg/dL Abnormal 5-40 [facility] Work Phone: Comment on above: PATIENT NOT FASTINGP ERFORMED BY: ORTIZ [facility] Rcpbdz0667 [address] RoadDublin [place] [id number] Cholesterol mass conc 158 mg/dL Normal 100-199 Com prehensive Internal Medicine Work Phone: Comment on above: PATIENT NOT FASTINGP ERFORMED BY: CB [facility] Pghszd5429 [address] RoadDublin [place] [id number] Triglyceride mass conc 206 mg/dL Abnormal 0-[address] [facility]erensive Internal Medicine Work Phone: Comment on above: PATIENT NOT FASTINGP ERFORMED BY: CB [facility] Eljpmk7573 [address] RoadDublin [place] [id number] METABOLIC PANEL, COMPREHENSI VE (84143)Ordered By: Lpn Rn Hospice on 04-06-2014 Albumin mass conc 4.3 g/dL Normal 3.5-4.8 Compreh ensive Internal Medicine Work Phone: Comment on above: PATIENT NOT FASTINGP ERFORMED BY: ORTIZ Crowelin6[address] [facility] [id number] Albumin/Globulin mass ratio 2.2 {ratio} Normal 1.1-2.5 [facility] Work Phone: Comment on above: PATIENT NOT FASTINGP ERFORMED BY: ORTIZ Crowelin6[address] [facility] [id number] ALP enzyme act/vol 87 [iU]/L Normal 39-117 [facility] Work Phone: Comment on above: PATIENT NOT FASTINGP ERFORMED BY: ORTIZ Hou Qxbpfx7996 [facility] [id number] ALT enzyme act/vol 14 [iU]/L Normal 0-32 [facility] Work Phone: Comment on above: PATIENT NOT FASTINGP ERFORMED BY: ORTIZ Ameya Ruwekz6621 [facility] [id number] AST enzyme act/vol 18 [iU]/L Normal 0-40 [facility] Internal Medicine Work Phone: Comment on above: PATIENT NOT FASTINGP ERFORMED BY: ORTIZ Nilda Crowelin6370 [facility] [id number] Bilirubin mass conc 0.3 mg/dL Normal 0.0-1.2 Compr [facility] Internal Medicine Work Phone: Comment on above: PATIENT NOT FASTINGP ERFORMED BY: ORTIZ HouMeadowview Psychiatric HospitalOkmlcq0419 [facility] [id number] Calcium mass conc 10.0 mg/dL Normal 8.6-10.2 Compreh page hospitalive Internal Medicine Work Phone: Comment on above: PATIENT NOT FASTINGP ERFORMED BY: ORTIZ Crowelin6370 [facility] [id number] Chloride molar conc 101 mmol/L Normal 97-108 Compr ensive Internal Medicine Work Phone: Comment on above: PATIENT NOT FASTINGP ERFORMED BY: ORTIZ Ameya Rrhcrk7550 [address] [facility] [id number] CO2 molar conc 28 mmol/L Normal 18-29 Comprehens trupti Internal Medicine Work Phone: Comment on above: PATIENT NOT FASTINGP ERFORMED BY: ORTIZ Crowelin6[address] [facility] [id number] Creatinine mass conc 0.73 mg/dL Normal 0.57-1.00 Comp rehensive Internal Medicine Work Phone: Comment on above: PATIENT NOT FASTINGP ERFORMED BY: [facility]enaSaint [facility] Fxflup4718 [facility] [id number] GFR/1.73 sq M predicted among blacks CKD-EPI vol rate/area (S/P/Bld) 94 mL/min/1.73 Normal [facility] Work Phone: Comment on above: PATIENT NOT FASTINGP ERFORMED BY: [facility]enaSaint [facility] Uuyfwl7972 [facility] [id number] GFR/1.73 sq M predicted among non-blacks CKD-EPI vol rate/area (S/P/Bld) 81 mL/min/1.73 Normal Comprehensiv e Internal Medicine Work Phone: Comment on above: PATIENT NOT FASTINGP ERFORMED BY: Ameya Jsuasb6390 [facility] [id number] Globulin mass conc (S) 2.0 g/dL Normal 1.5-4.5 Co mprehensive Internal Medicine Work Phone: Comment on above: PATIENT NOT FASTINGP ERFORMED BY: LabSaint [facility] Ykxsve4051 [facility] [id number] Glucose mass conc 87 mg/dL Normal 65-99 Compreh ensive Internal Medicine Work Phone: Comment on above: PATIENT NOT FASTINGP ERFORMED BY: ORTIZ Hou Tvltsc7736 [facility] [id number] Potassium molar conc 5.0 mmol/L Normal 3.5-5.2 Comp rehensive Internal Medicine Work Phone: Comment on above: PATIENT NOT FASTINGP ERFORMED BY: ORTIZ [facility] Yrdylh4627 [address] RoadDublin [place] [id number] Protein mass conc 6.3 g/dL Normal 6.0-8.5 Compreh ensive Internal Medicine Work Phone: Comment on above: PATIENT NOT FASTINGP ERFORMED BY: ORTIZ [facility] Bczuhb7952 [address] RoadDublin [place] [id number] Sodium molar conc 142 mmol/L Normal 134-144 Compreh ensive Internal Medicine Work Phone: Comment on above: PATIENT NOT FASTINGP ERFORMED BY: CB [facility] Tzyyeu2625 [address] RoadDublin [place] [id number] Urea nitrogen mass conc 12 mg/dL Normal 8-27 [facility] Work Phone: Comment on above: PATIENT NOT FASTINGP ERFORMED BY: ORTIZ [facility] Ewxxbj0020 [address] RoadDublin [place] [id number] Urea nitrogen/Creatinine mass ratio 16 mg/mg Normal 11-26 [facility] Work Phone: Comment on above: PATIENT NOT FASTINGP ERFORMED BY: CB [facility] Vjyoof0928 [address] RoadDublin [place] [id number] TSH ([id number])Ordered By: Samantha m Cigarette Making Examiner on 04-06-2014 Thyrotropin Qn 0.748 {uIU/mL} Normal 0.450-4.50 0 [facility] Work Phone: Comment on above: PATIENT NOT FASTINGP ERFORMED BY: CB [facility] Lmylws2307 [address] RoadDublin [place] [id number] Vitamin D Hydroxy (14373)Ord ered By: Lpn Rn Hospice on 04-06-2014 25-Hydroxyvitamin D2+25-Hydroxyvitamin D3 mass conc 29.5 ng/mL Abnormal 30.0-100.0 [facility] Work Phone: Comment on above: Vitamin D deficiency has been defined by the [place] ofMedicine and an Endocrine Society practice guideline as alevel of serum 25-OH vitamin D less than 20 ng/mL (1,2).The Endocrine Society went on to further define vitamin Dinsufficiency as a level between 21 and 29 ng/mL (2).1. IOM ([place] of Medicine). 2010. Dietary reference intakes for calcium and D. [place]: The National Academies Press.2. Allie MF, Emile PONCE, Natalie POOLE, et al. Evaluation, treatment, and prevention of vitamin D deficiency: an Endocrine Society clinical practice guideline. JCEM. 2010; 96(7):1911-30. PATIENT NOT FASTINGP ERFORMED BY: CB [facility] Twijdv9362 [address] RoadDublin [place] [id number] CBC WITH MANUAL DIFF (96376) Ordered By: Lpn Rn Hospice on 12-22-2013 Basophils #/vol (Bld) 0.0 {x10E3/uL} Normal 0.0-0.2 [facility] Work Phone: Comment on above: PATIENT NOT FASTINGP ERFORMED BY: CB [facility] Cgcukk5422 [address] RoadDublin [place] [id number] Information: [id number], [id number] Basophils/100 WBC (Bld) 0 % Normal 0-3 [facility] Work Phone: Comment on above: PATIENT NOT FASTINGP ERFORMED BY: CB [facility] Qqzeax4639 [address] RoadDublin [place] [id number] Information: I03211, 986889 Eosinophils #/vol (Bld) 0.1 {x10E3/uL} Normal 0.0-0.4 [facility] Work Phone: Comment on above: PATIENT NOT FASTINGP ERFORMED BY: CB [facility] Ayffvd1162 [address] RoadDublin [place] [id number] Information: [id number], [id number] Eosinophils/100 WBC (Bld) 2 % Normal 0-5 [facility] Work Phone: Comment on above: PATIENT NOT FASTINGP ERFORMED BY: CB [facility] Nmyyxq1480 [address] RoadDublin [place] [id number] Information: [id number], 528206 Erythrocyte distribution width Ratio (RBC) 13.7 % Normal 12.3-15.4 [facility] Work Phone: Comment on above: PATIENT NOT FASTINGP ERFORMED BY: ORTIZ RobledoCoaustyn Yjjflf5523 [facility] [id number] Information: [id number], 732382 Hematocrit Volume Fraction (Bld) 38.4 % Normal 34.0-46.6 [facility] Work Phone: Comment on above: PATIENT NOT FASTINGP ERFORMED BY: ORTIZ [facility] Oxmopy3859 [facility] [id number] Information: [id number] Hemoglobin mass conc (Bld) 12.8 g/dL Normal 11.1-15.9 [facility] Work Phone: Comment on above: PATIENT NOT FASTINGP ERFORMED BY: ORTIZ [facility] Tnlnry7068 [facility] [id number] Information: [id number], 579898 Immature granulocytes #/vol (Bld) 0.0 {x10E3/uL} Normal 0.0-0.1 [facility] Work Phone: Comment on above: PATIENT NOT FASTINGP ERFORMED BY: ORTIZ RobledoCo Nvvwls2937 [facility] [id number] Information: [id number], [id number] Immature granulocytes/100 WBC (Bld) 0 % Normal 0-2 [facility] Work Phone: Comment on above: PATIENT NOT FASTINGP ERFORMED BY: ORTIZ [facility] Iunlqk2864 [facility] [id number] Information: [id number], [id number] Lymphocytes #/vol (Bld) 1.1 {x10E3/uL} Normal 0.7-3.1 [facility] Work Phone: Comment on above: PATIENT NOT FASTINGP ERFORMED BY: ORTIZ [facility] Lyikzu6937 [facility] [id number] Information: [id number], 494415 Lymphocytes/100 WBC (Bld) 22 % Normal 14-46 [facility] Work Phone: Comment on above: PATIENT NOT FASTINGP ERFORMED BY: CB [facility] Dvoojh4785 [address] RoadDublin [place] [id number] Information: L59405, 855120 MCH Entitic mass (RBC) 30.6 pg Normal 26.6-33.0 [facility] Internal Medicine Work Phone: Comment on above: PATIENT NOT FASTINGP ERFORMED BY: ORTIZ RobledoCorewell Health Zeeland Hospital6370 [facility] [id number] Information: [id number], 094368 MCHC mass conc (RBC) 33.3 g/dL Normal 31.5-35.7 [facility] Internal Medicine Work Phone: Comment on above: PATIENT NOT FASTINGP ERFORMED BY: MeenaCorewell Health [facility]eland Hospital6370 [facility] [id number] Information: [id number], 861408 MCV Entitic volume (RBC) 92 fL Normal 79-[address] [facility] Internal Medicine Work Phone: Comment on above: PATIENT NOT FASTINGP ERFORMED BY: MeenaCorewell Health Zeeland Hospital6370 [facility] [id number] Information: [id number], 551039 Monocytes #/vol (Bld) 0.4 {x10E3/uL} Normal 0.1-0.9 [facility] Work Phone: Comment on above: PATIENT NOT FASTINGP ERFORMED BY: [facility]6370 [facility] [id number] Information: [id number], 137380 Monocytes/100 WBC (Bld) 8 % Normal 4-12 [facility] Work Phone: Comment on above: PATIENT NOT FASTINGP ERFORMED BY: [facility]6370 [facility] [id number] Information: [id number], [id number] Neutrophils #/vol (Bld) 3.3 {x10E3/uL} Normal 1.4-7.0 [facility] Work Phone: Comment on above: PATIENT NOT FASTINGP ERFORMED BY: [place] 7753070 [facility] [id number] Information: [id number], [id number] Neutrophils/100 WBC (Bld) 68 % Normal 40-[address] [facility] Internal Medicine Work Phone: Comment on above: PATIENT NOT FASTINGP ERFORMED BY: ORTIZ RobledoCoaustyn ChesterDekgsw2178 [facility] [id number] Information: [id number], [id number] Platelets #/vol (Bld) 190 {x10E3/uL} Normal 155-[address] [facility] Internal Medicine Work Phone: Comment on above: PATIENT NOT FASTINGP ERFORMED BY: ORTIZ [facility] Wwubku4917 [facility] [id number] Information: [id number], [id number] RBC #/vol (Bld) 4.18 {x10E6/uL} Normal 3.77-5.28 [facility] Internal Medicine Work Phone: Comment on above: PATIENT NOT FASTINGP ERFORMED BY: ORTIZ [facility]oCorp Xzcowy3504 [facility] [id number] Information: [id number], [id number] WBC #/vol (Bld) 4.8 {x10E3/uL} Normal 3.4-10.8 [facility] Internal Medicine Work Phone: Comment on above: PATIENT NOT FASTINGP ERFORMED BY: ORITZ [facility] Cmntfk1516 [facility] [id number] Information: [id number], [id number] D-Dimer (09374)Ordered By: Dc keithte Cigarette Making Examiner on 12-22-2013 D-Dimer (24296) 0.40 {ug_FEU/mL} Normal 0.00-0.49 [facility] Internal Medicine Work Phone: Comment on above: In conjunction with a non-high clinical probability assessment, anormal (<0.50 ug FEU/mL) result excludes deep vein thrombosis (DVT)and pulmonary embolism (PE) with high sensitivity. PATIENT NOT FASTINGP ERFORMED BY: CB [facility] Pfkbrp9523 [facility] [id number] PT (Prothrobim Time) (38752) Ordered By: Lpn Rn Hospice on 12-22-2013 INR Coag RelTime (PPP) 1.0 {INR} Normal 0.8-1.2 [facility] Internal Medicine Work Phone: Comment on above: Reference interval i s for non-anticoagulated patients. . Suggested INR therapeutic range for Vitamin K antagonist therapy: Standard Dose (moderate intensity therapeutic range): 2.0 - 3.0 Higher intensity therapeutic range 2.5 - 3.5 PATIENT NOT FASTINGP ERFORMED BY: [facility]6370 [facility] [id number] Prothrombin time (PT) Coag time (PPP) 10.6 {sec} Normal 9.1-12.0 [facility] Work Phone: Comment on above: PATIENT NOT FASTINGP ERFORMED BY: [facility]6370 [facility] [id number] PTT (Activated Partial Throm boplastin Time) (57566)Ordered By: Lpn Rn Hospice on 12-22-2013 aPTT Coag time (PPP) 26 {sec} Normal 24-33 [facility] Internal Medicine Work Phone: Comment on above: This test has not be en validated for monitoring unfractionated heparintherapy. aPTT-based therapeutic ranges for unfractionated heparintherapy have not been established. For general guidelines onHeparin monitoring, refer to the [employer] Directory of Services. PATIENT NOT FASTINGP ERFORMED BY: [facility]6370 [facility] [id number] MICROALBUMINOrdered By: Syst em Cigarette Making Examiner on 12-05-2013 Albumin DL <= 20 mg/L mass conc (U) 23.2 ug/mL Abnormal 0.0-17.0 [facility] Work Phone: Comment on above: PATIENT NOT FASTINGP ERFORMED BY: [facility]6370 [facility] [id number] Albumin/Creatinine mass ratio (U) 14.1 {mg/g_creat} Normal 0.0-30.0 [facility] Work Phone: Comment on above: PATIENT NOT FASTINGP ERFORMED BY: ORTIZ Nilda Rnfusw5443 [address] [facility] [id number] Creatinine mass conc (U) 164.8 mg/dL Normal 15.0-278.0 [facility] Work Phone: Comment on above: PATIENT NOT FASTINGP ERFORMED BY: ORTIZ Nilda Crowelin6370 [address] [facility] [id number] URINALYSIS, W/ MICRO (12926) Ordered By: Lpn Rn Hospice on 12-05-2013 Appearance Nom (U) Cloudy Abnormal Compre hensive Internal Medicine Work Phone: Comment on above: PATIENT NOT FASTINGP ERFORMED BY: ORTIZ Ameyaaustyn CroweHnhdkm3585 [address] [facility] [id number] Information: [id number] Bilirubin Ql (U) Negative Normal Comprehe nsive Internal Medicine Work Phone: Comment on above: PATIENT NOT FASTINGP ERFORMED BY: ORTIZ Ameyaaustyn CroweXqatze9531 [address] [facility] [id number] Information: [id number] Color Nom (U) Yellow Normal Comprehensi ve Internal Medicine Work Phone: Comment on above: PATIENT NOT FASTINGP ERFORMED BY: ORTIZ Nilda Jogybr5016 [address] [facility] [id number] Information: Q56148 Glucose Ql (U) Negative Normal Comprehens trupti Internal Medicine Work Phone: Comment on above: PATIENT NOT FASTINGP ERFORMED BY: ORTIZ Ameya Vxsepa8207 [address] [facility] [id number] Information: N02504 Hemoglobin Ql (U) Negative Normal Compreh ensive Internal Medicine Work Phone: Comment on above: PATIENT NOT FASTINGP ERFORMED BY: ORTIZ Ameya Vqibbf2762 [address] [facility] [id number] Information: D91262 Ketones Ql (U) Negative Normal Comprehens trupti Internal Medicine Work Phone: Comment on above: PATIENT NOT FASTINGP ERFORMED BY: ORTIZ [facility] Eieapm1609 [facility] HospitalDublin [place] [id number] Information: N11115 Leukocyte esterase Test strip Ql (U) Negative Normal [facility] Work Phone: Comment on above: PATIENT NOT FASTINGP ERFORMED BY: ORTIZ LabKellierp Ujuuxe9535 Rodriguez RoadDublin [place] [id number] Information: [id number] Microscopic observation LM Nom (Urine sed) See below: Normal [facility] Work Phone: Comment on above: PATIENT NOT FASTINGP ERFORMED BY: ORTIZ [facility] Gegalm6400 Rodriguez Roadblin [place] [id number] Information: Q14804 Microscopic observation LM Nom (Urine sed) MICRON Normal [facility] Work Phone: Comment on above: Microscopic follows if indicated. PATIENT NOT FASTINGP ERFORMED BY: ORTIZ [facility] Qpgsbk5944 Rodriguze RoadAtrium Health Carolinas Rehabilitation Charlottein [place] [id number] Information: F98861 Nitrite Ql (U) Negative Normal Comprehens trupti Internal Medicine Work Phone: Comment on above: PATIENT NOT FASTINGP ERFORMED BY: [facility] Lfhueu6398 Rodriguez RoadAtrium Health Carolinas Rehabilitation Charlottein [place] [id number] Information: I07866 pH (U) 5.0 [pH] Normal 5.0-7.5 [facility] Work Phone: Comment on above: PATIENT NOT FASTINGP ERFORMED BY: [facility] Yddhkq1342 Rodriguez RoadAtrium Health Carolinas Rehabilitation Charlottein [place] [id number] Information: [id number] Protein Ql (U) Negative Normal Comprehens trupti Internal Medicine Work Phone: Comment on above: PATIENT NOT FASTINGP ERFORMED BY: CB [facility] Hwwopx8637 Rodriguez [facility] Centerblin [place] [id number] Information: Q82813 Specific gravity Relative Density (U) 1.017 1 Normal 1.005-1.03 0 [facility] Work Phone: Comment on above: PATIENT NOT FASTINGP ERFORMED BY: CB [facility] Uafjhr7484 Rodriguez RoadDublin [place] [id number] Information: R90051 Urobilinogen Test strip mass conc (U) 0.2 mg/dL Normal 0.0-1.9 Comprehensiv e Internal Medicine Work Phone: Comment on above: PATIENT NOT FASTINGP ERFORMED BY: ORTIZ [employer] Mdmkwc1814 [facility] [id number] Information: J40655 CBC WITH MANUAL DIFF (51468) Ordered By: Lpn Rn Hospice on 12-01-2013 Basophils #/vol (Bld) 0.0 {x10E3/uL} Normal 0.0-0.2 [facility] Work Phone: Comment on above: PATIENT WAS FASTINGP ERFORMED BY: ORTIZ [place] 6200670 [facility] [id number] Information: [id number],C52824 Basophils/100 WBC (Bld) 0 % Normal 0-3 [facility] Work Phone: Comment on above: PATIENT WAS FASTINGP ERFORMED BY: ORTIZ [place] 6200670 [facility] [id number] Information: 204421,[id number] Eosinophils #/vol (Bld) 0.1 {x10E3/uL} Normal 0.0-0.4 [facility] Work Phone: Comment on above: PATIENT WAS FASTINGP ERFORMED BY: ORTIZ [place] 6200670 [facility] [id number] Information: 592900,Q34108 Eosinophils/100 WBC (Bld) 1 % Normal 0-5 [facility] Work Phone: Comment on above: PATIENT WAS FASTINGP ERFORMED BY: ORTIZ [place] 6200670 [facility] [id number] Information: 044590,F96637 Erythrocyte distribution width Ratio (RBC) 13.5 % Normal 12.3-15.4 [facility] Work Phone: Comment on above: PATIENT WAS FASTINGP ERFORMED BY: [address] [place] [id number] Information: 043840,K17004 Hematocrit Volume Fraction (Bld) 40.8 % Normal 34.0-46.6 [facility] Work Phone: Comment on above: PATIENT WAS FASTINGP ERFORMED BY: [place] 7753070 [facility] [id number] Information: [id number],H37603 Hemoglobin mass conc (Bld) 13.2 g/dL Normal 11.1-15.9 [facility] Work Phone: Comment on above: PATIENT WAS FASTINGP ERFORMED BY: [address] [id number] Information: 137507,Q88089 Immature granulocytes #/vol (Bld) 0.0 {x10E3/uL} Normal 0.0-0.1 [facility] Work Phone: Comment on above: PATIENT WAS FASTINGP ERFORMED BY: [address] [id number] Information: 847293,Y89209 Immature granulocytes/100 WBC (Bld) 0 % Normal 0-2 [facility] Work Phone: Comment on above: PATIENT WAS FASTINGP ERFORMED BY: [address] [id number] Information: 825397,U32417 Lymphocytes #/vol (Bld) 1.4 {x10E3/uL} Normal 0.7-3.1 [facility] Work Phone: Comment on above: PATIENT WAS FASTINGP ERFORMED BY: [place] 7753070 [facility] [id number] Information: 753876,Y41769 Lymphocytes/100 WBC (Bld) 18 % Normal 14-46 [facility] Work Phone: Comment on above: PATIENT WAS FASTINGP ERFORMED BY: [address] [id number] Information: 066625,M46312 MCH Entitic mass (RBC) 30.1 pg Normal 26.6-33.0 [facility] Internal Medicine Work Phone: Comment on above: PATIENT WAS FASTINGP ERFORMED BY: [facility]6370 [facility] [id number] Information: 429961,R64803 MCHC mass conc (RBC) 32.4 g/dL Normal 31.5-35.7 [facility] Internal Medicine Work Phone: Comment on above: PATIENT WAS FASTINGP ERFORMED BY: [place] 7753070 [facility] [id number] Information: 262433,R86404 MCV Entitic volume (RBC) 93 fL Normal 79-[address] [facility] Internal Medicine Work Phone: Comment on above: PATIENT WAS FASTINGP ERFORMED BY: [address] [id number] Information: 345996,[id number] Monocytes #/vol (Bld) 0.6 {x10E3/uL} Normal 0.1-0.9 [facility] Work Phone: Comment on above: PATIENT WAS FASTINGP ERFORMED BY: [place] 7753070 [facility] [id number] Information: 461932,J32465 Monocytes/100 WBC (Bld) 7 % Normal 4-12 [facility] Work Phone: Comment on above: PATIENT WAS FASTINGP ERFORMED BY: [facility]6370 [facility] [id number] Information: 982988,C42604 Neutrophils #/vol (Bld) 5.9 {x10E3/uL} Normal 1.4-7.0 [facility] Work Phone: Comment on above: PATIENT WAS FASTINGP ERFORMED BY: [address] [id number] Information: 353343,C73683 Neutrophils/100 WBC (Bld) 74 % Normal 40-[address] [facility] Internal Medicine Work Phone: Comment on above: PATIENT WAS FASTINGP ERFORMED BY: ORTIZ Chester6370 [facility] [id number] Information: 241843,G24918 Platelets #/vol (Bld) 225 {x10E3/uL} Normal 155-[address] [facility] Internal Medicine Work Phone: Comment on above: PATIENT WAS FASTINGP ERFORMED BY: ORTIZ [facility]ledoSaint [facility] Gpuhse[address] [id number] Information: 400301,R09066 RBC #/vol (Bld) 4.38 {x10E6/uL} Normal 3.77-5.28 [facility] Internal Medicine Work Phone: Comment on above: PATIENT WAS FASTINGP ERFORMED BY: ORTIZ MeenaSaint [facility] Khxbvr4592 [facility] [id number] Information: [id number],M96729 WBC #/vol (Bld) 8.0 {x10E3/uL} Normal 3.4-10.8 [facility] Internal Medicine Work Phone: Comment on above: PATIENT WAS FASTINGP ERFORMED BY: ORTIZ Hou Uerkoa8652 [facility] [id number] Information: 045165,C85622 LIPID PANEL (06135)Ordered B y: Lpn Rn Hospice on 12-01-2013 Cholesterol in HDL mass conc 47 mg/dL Normal [facility] Work Phone: Comment on above: According to ATP-III Guidelines, HDL-C >59 mg/dL is considered anegative risk factor for CHD. PATIENT WAS FASTINGP ERFORMED BY: ORTIZ RobledoSaint [facility] Iqfdnx3427 [facility] [id number] Cholesterol in LDL mass conc 50 mg/dL Normal 0-99 [facility] Work Phone: Comment on above: PATIENT WAS FASTINGP ERFORMED BY: [facility]6370 [facility] [id number] Cholesterol in LDL/Cholesterol in HDL mass ratio 1.1 {ratio_units} Normal 0.0-3.2 [facility] Work Phone: Comment on above: PATIENT WAS FASTINGP ERFORMED BY: ORTIZ SilistixMeadowview Psychiatric HospitalOkyski5480 [facility] [id number] Cholesterol in VLDL mass conc 35 mg/dL Normal 5-40 [facility] Work Phone: Comment on above: PATIENT WAS FASTINGP ERFORMED BY: ORTIZ LabCoMeadowview Psychiatric HospitalBufajg2647 [facility] [id number] Cholesterol mass conc 132 mg/dL Normal 100-199 Com prehensive Internal Medicine Work Phone: Comment on above: PATIENT WAS FASTINGP ERFORMED BY: ORTIZ SilistixPeter Ville 5138870 [facility] [id number] Triglyceride mass conc 177 mg/dL Abnormal 0-149 Co mprehensive Internal Medicine Work Phone: Comment on above: PATIENT WAS FASTINGP ERFORMED BY: SilistixMeadowview Psychiatric HospitalAfeblo6213 [facility] [id number] Lab Report: Ordered by Dr. Saritha delgado 12-01-2013 Alanine aminotransferase (ALT) 10 U/L Invalid Interpretation Code [facility] Work Phone: Alkaline phosphatase (ALP) 76 U/L Invalid Interpretation Code [facility] Work Phone: Aspartate aminotransferase (AST) 13 U/L Invalid Interpretation Code [facility] Work Phone: METABOLIC PANEL, COMPREHENSI VE (06069)Ordered By: Lpn Rn Hospice on 12-01-2013 Albumin mass conc 4.5 g/dL Normal 3.5-4.8 Compreh ensive Internal Medicine Work Phone: Comment on above: PATIENT WAS FASTINGP ERFORMED BY: LabCorewell [facility] Hospital6370 [facility] [id number] Albumin/Globulin mass ratio 2.1 {ratio} Normal 1.1-2.5 [facility] Work Phone: Comment on above: PATIENT WAS FASTINGP ERFORMED BY: [facility] Ozswkx0017 Rodriguez RoadDublin [place] [id number] ALP enzyme act/vol 76 [iU]/L Normal 39-117 [facility] Work Phone: Comment on above: PATIENT WAS FASTINGP ERFORMED BY: [facility] Tnfesy0687 Rodriguez RoadDublin [place] [id number] ALT enzyme act/vol 10 [iU]/L Normal 0-32 [facility] Internal Medicine Work Phone: Comment on above: PATIENT WAS FASTINGP ERFORMED BY: [facility] Tkedgz0328 Rodriguez RoadDublin [place] [id number] AST enzyme act/vol 13 [iU]/L Normal 0-40 [facility] Work Phone: Comment on above: PATIENT WAS FASTINGP ERFORMED BY: ORTIZ [facility] Qskiis6317 [address] RoadDublin [place] [id number] Bilirubin mass conc 0.3 mg/dL Normal 0.0-1.2 Compr ensive Internal Medicine Work Phone: Comment on above: PATIENT WAS FASTINGP ERFORMED BY: [facility] Dikrkl4362 Rodriguez RoadDublin [place] [id number] Calcium mass conc 9.9 mg/dL Normal 8.6-10.2 Compreh page hospitalive Internal Medicine Work Phone: Comment on above: PATIENT WAS FASTINGP ERFORMED BY: LabSaint [facility] Yfaxdg7316 Rodriguez RoadDublin [place] [id number] Chloride molar conc 101 mmol/L Normal 97-108 [facility] Work Phone: Comment on above: PATIENT WAS FASTINGP ERFORMED BY: [facility] Yaotdt8042 [address] RoadDublin [place] [id number] CO2 molar conc 27 mmol/L Normal 19-28 Comprehens trupti Internal Medicine Work Phone: Comment on above: PATIENT WAS FASTINGP ERFORMED BY: [facility] Pmhxix3194 [address] RoadDublin [place] [id number] Creatinine mass conc 0.97 mg/dL Normal 0.57-1.00 Comp [facility] Work Phone: Comment on above: PATIENT WAS FASTINGP ERFORMED BY: ORTIZ [facility] Txskjs7119 Rodriguez [facility]blin [place] [id number] GFR/1.73 sq M predicted among blacks CKD-EPI vol rate/area (S/P/Bld) 67 mL/min/1.73 Normal [facility] Work Phone: Comment on above: PATIENT WAS FASTINGP ERFORMED BY: [facility] Rfefde6902 Rodriguez RoadAtrium Health Carol[facility] Rehabilitation Charlottein [place] [id number] GFR/1.73 sq M predicted among non-blacks CKD-EPI vol rate/area (S/P/Bld) 58 mL/min/1.73 Abnormal Comprehensiv e Internal Medicine Work Phone: Comment on above: PATIENT WAS FASTINGP ERFORMED BY: ORTIZ [facility] Zilqyn8647 [address] [facility] [id number] Globulin mass conc (S) 2.1 g/dL Normal 1.5-4.5 Co mprehensive Internal Medicine Work Phone: Comment on above: PATIENT WAS FASTINGP ERFORMED BY: ORTIZ [facility] Ztzpxg8050 Rodriguez [facility]in [place] [id number] Glucose mass conc 99 mg/dL Normal 65-99 Compreh ensive Internal Medicine Work Phone: Comment on above: PATIENT WAS FASTINGP ERFORMED BY: [facility] Ncnbzj3441 [address] [facility] [id number] Potassium molar conc 4.9 mmol/L Normal 3.5-5.2 Comp rehensive Internal Medicine Work Phone: Comment on above: PATIENT WAS FASTINGP ERFORMED BY: [facility] Aslojf1799 [address] [facility] Centerin [place] [id number] Protein mass conc 6.6 g/dL Normal 6.0-8.5 Compreh ensive Internal Medicine Work Phone: Comment on above: PATIENT WAS FASTINGP ERFORMED BY: [facility] Wgsfux3433 [address] [facility] Centerin [place] [id number] Sodium molar conc 141 mmol/L Normal 134-144 Compreh ensive Internal Medicine Work Phone: Comment on above: PATIENT WAS FASTINGP ERFORMED BY: [facility] Whmink9737 [address] [facility] [id number] Urea nitrogen mass conc 21 mg/dL Normal 8-27 [facility] Work Phone: Comment on above: PATIENT WAS FASTINGP ERFORMED BY: [facility] Tlvnrz6859 [address] [facility] [id number] Urea nitrogen/Creatinine mass ratio 22 mg/mg Normal 11- [facility] Work Phone: Comment on above: PATIENT WAS FASTINGP ERFORMED BY: [facility] Vzvdyz9232 [facility] [id number] TSH ([id number])Ordered By: [employer] Cigarette Making Examiner on 12-01-2013 Thyrotropin Qn 1.040 {uIU/mL} Normal 0.450-4.50 0 [facility] Work Phone: Comment on above: PATIENT WAS FASTINGP ERFORMED BY: [facility] Powoxw5885 [facility] [id number] URINE IBRAHIMA CULTURE (TY COL COUNT) (60711)Ordered By: Lpn Rn Hospice on 12-01-2013 Bacteria identified Cx Nom (U) Escherichia coli Normal [facility] Work Phone: Comment on above: Greater than 100,000 colony forming units per mL PATIENT NOT FASTINGP ERFORMED BY: [facility] Wbcyse0285 [facility] [id number] Information: SRC:UR [id number] Bacteria identified Cx Nom (U) Final report Normal [facility] Work Phone: Comment on above: PATIENT NOT FASTINGP ERFORMED BY: [facility] Phtzcv9095 [facility] [id number] Information: SRC:UR Z05063 Other Antibiotic [facility] [employer] prehensive Internal Medicine Work Phone: Comment on above: S = Susceptibl e; I = Intermediate; R = Resistant P = Positive; N = Negative MICS are expressed in micrograms per mL Antibiotic RSLT#1 RSLT#2 RSLT#3 RSLT#4Amoxicillin/Clavulanic Acid SAmpicillin SCefepime SCeftriaxone SCefuroxime SCephalothin SCiprofloxacin SErtapenem SGentamicin SImipenem SLevofloxacin SNitrofurantoin SPiperacillin STetracycline STobramycin STrimethoprim/Sulfa S PATIENT NOT FASTINGP ERFORMED BY: ORTIZ [facility] Rjpyhz5194 Rodriguez RoadDublin [place] [id number] Information: SRC:UR M86524 Urinalysis, Office (91974)Or dered By: Jacinta Patel on 12-01-2013 Bilirubin [...] Internal Medicine Work Phone: Vitamin D Hydroxy (26606)Ord ered By: Lpn Rn Hospice on 12-01-2013 25-Hydroxyvitamin D2+25-Hydroxyvitamin D3 mass conc 38.9 ng/mL Normal 30.0-100.0 [facility] Work Phone: Comment on above: Vitamin D deficiency has been defined by the [place] of[employer]icine and an Endocrine Society practice guideline as alevel of serum 25-OH vitamin D less than 20 ng/mL (1,2).The Endocrine Society went on to further define vitamin Dinsufficiency as a level between 21 and 29 ng/mL (2).1. IOM ([place] of Medicine). 2010. Dietary reference intakes for calcium and D. [place]: The National Academies Press.2. Allie MF, Emile NC, Natalie POOLE, et al. Evaluation, treatment, and prevention of vitamin D deficiency: an Endocrine Society clinical practice guideline. JCEM. 2010; 96(7):1911-30. PATIENT WAS FASTINGP ERFORMED BY: [place] [id number] Lab Report: PTon 04-19-2013 INR in blood by coagulation 1.0 {INR} Normal [facility] Work Phone: prothrombin time, actual/normal, ratio 12.8 SECONDS Normal 11.9-14.4 [facility] rt Group Work Phone: Lab Report: PTTon 04-19-2013 aPTT 29.8 s Normal 24.1-36.2 [facility] Work Phone: Replaced Document: Escobar ROMERO Observationson 04-19-2013 Pulse (Heart Rate) 421 ms Invalid Interpretation Code [facility] Work Phone: URINE IBRAHIMA CULTURE-TY COL C OUNT (43483)Ordered By: Lpn Rn Hospice on 04-18-2013 Bacteria identified Cx Nom (U) Final report Normal [facility] Work Phone: Comment on above: PATIENT NOT FASTINGP ERFORMED BY: [place] [id number] Information: SRC:UR [id number] Bacteria identified Cx Nom (U) NG36 Normal [facility] Work Phone: Comment on above: No growth in 36 - 48 hours. PATIENT NOT FASTINGP ERFORMED BY: [employer] Zqalwr4043 [facility] [place] [id number] Information: SRC:UR U80458 Urinalysis, Office (69677)Or dered By: Jacinta Patel on 04-15-2013 Bilirubin [...] [facility] Work Phone: Lab Report: [facility] 02-05-20 13 Albumin 4.0 g/dL Normal 3.4-5.0 [facility] Work Phone: Bilirubin (direct) 0.12 mg/dL Normal 0.00-0.30 [facility] Work Phone: Bilirubin (total) 0.40 mg/dL Normal 0.00-1.00 [facility] Work Phone: URINE IBRAHIMA CULTURE (TY COL COUNT) (60813)Ordered By: Lpn Rn Hospice on 09-30-2012 Bacteria identified Cx Nom (U) Escherichia coli Normal [facility] Work Phone: Comment on above: Greater than 100,000 colony forming units per mL PATIENT NOT FASTINGP ERFORMED BY: ORTIZ [facility] Ssrymo9487 [facility] [id number] Information: SRC:POORNIMA [id number] Bacteria identified Cx Nom (U) Final report Normal [facility] Work Phone: Comment on above: PATIENT NOT FASTINGP ERFORMED BY: ORTIZ [facility] Mzlpil3435 Rodriguez RoadAtrium Health Carolinas Rehabilitation Charlottein [place] [id number] Information: SRC:UR [id number] Other Antibiotic [facility] prehensive Internal Medicine Work Phone: Comment on above: S = Susceptibl e; I = Intermediate; R = Resistant P = Positive; N = Negative MICS are expressed in micrograms per mL Antibiotic RSLT#1 RSLT#2 RSLT#3 RSLT#4Amoxicillin/Clavulanic Acid SAmpicillin SCefazolin SCefepime SCeftriaxone SCefuroxime SCephalothin SCiprofloxacin SESBL NErtapenem SGentamicin SImipenem SLevofloxacin SNitrofurantoin SPiperacillin STetracycline STobramycin STrimethoprim/Sulfa S PATIENT NOT FASTINGP ERFORMED BY: ORTIZ [facility] Domdny3156 Rodriguez RoadCommunity Health [id number] Information: SRC:UR R02718 Urinalysis, Office (84222)Or dered By: Alyson Dixon on 09-30-2012 Bilirubin [...] Albumin/Globulin Ratio 1.1 {ratio} Invalid Interpretation Code [facility] Work Phone: Protein 6.7 g/dL Invalid Interpretation Code [facility] Work Phone: Alkaline Phosphatase (27425) Ordered By: Lpn Rn Hospice on 02-25-2012 ALP enzyme act/vol 67 [iU]/L Normal 25-165 [facility]pre [facility] Work Phone: Comment on above: PATIENT NOT FASTINGP ERFORMED BY: Percello6[address] [facility] [id number] CALCIFIDIOL (24342) VIT D 25 Ordered By: Lpn Rn Hospice on 02-25-2012 25-Hydroxyvitamin D2+25-Hydroxyvitamin D3 mass conc 45.8 ng/mL Normal 30.0-100.0 [facility] Work Phone: Comment on above: Vitamin D deficiency has been defined by the [place] of[employer]icine and an Endocrine Society practice guideline as alevel of serum 25-OH vitamin D less than 20 ng/mL (1,2).The Endocrine Society went on to further define vitamin Dinsufficiency as a level between 21 and 29 ng/mL (2).1. IOM ([place] of Medicine). 2010. Dietary reference intakes for calcium and D. [place]: The National Academies Press.2. Allie MF, Emile NC, Natalie POOLE, et al. Evaluation, treatment, and prevention of vitamin D deficiency: an Endocrine Society clinical practice guideline. JCEM. 2010; 96(7):1911-30. PATIENT NOT FASTINGP ERFORMED BY: Foneshow Qwogon7620 [facility] [id number] Information: [id number] Calcium Serum (67139)Ordered By: Lpn Rn Hospice on 02-25-2012 Calcium mass conc 9.3 mg/dL Normal 8.6-10.2 Compreh ensive Internal Medicine Work Phone: Comment on above: PATIENT NOT FASTINGP ERFORMED BY: Percello6370 Rodriguez RoadDublin [place] [id number] Clinical Lists Update: Prelo broacher 02-16-2012 MCHC 34.6 % Invalid Interpretation Code [facility] Work Phone: CBC (AUTO) (05200)Ordered By : Lpn Rn Hospice on 10-14-2010 Erythrocyte distribution width Ratio (RBC) 13.5 % Normal 11.7-15.0 [facility] Work Phone: Comment on above: PATIENT NOT FASTINGP ERFORMED BY: CB [facility] Usdlhh9811 Rodriguez RoadDublin [place] [id number] Hematocrit Volume Fraction (Bld) 40.4 % Normal 34.0-44.0 [facility] Work Phone: Comment on above: PATIENT NOT FASTINGP ERFORMED BY: CB [facility] Iyjxnb7632 Rodriguez RoadDuin [place] [id number] Hemoglobin mass conc (Bld) 13.7 g/dL Normal 11.5-15.0 [facility] Work Phone: Comment on above: PATIENT NOT FASTINGP ERFORMED BY: CB [facility] Fspvyl8096 Rodriguez RoadDuin [place] [id number] MCH Entitic mass (RBC) 29.5 pg Normal 27.0-34.0 [facility] Internal Medicine Work Phone: Comment on above: PATIENT NOT FASTINGP ERFORMED BY: CB [facility] Nmvtgx4717 Rodriguez RoadDublin [place] [id number] MCHC mass conc (RBC) 33.9 g/dL Normal 32.0-36.0 [facility] Internal Medicine Work Phone: Comment on above: PATIENT NOT FASTINGP ERFORMED BY: CB [facility] Sumzrd8041 Rodriguez RoadDublin [place] [id number] MCV Entitic volume (RBC) 87 fL Normal 80-98 [facility] Work Phone: Comment on above: PATIENT NOT FASTINGP ERFORMED BY: CB [facility] Gljczh0852 Rodriguez RoadDublin [place] [id number] Platelets #/vol (Bld) 280 {x10E3/uL} Normal 140-415 [facility] Work Phone: Comment on above: PATIENT NOT FASTINGP ERFORMED BY: ORTIZ Chester6370 [facility] [id number] RBC #/vol (Bld) 4.64 {x10E6/uL} Normal 3.80-5.10 Comp rehensive Internal Medicine Work Phone: Comment on above: PATIENT NOT FASTINGP ERFORMED BY: ORTIZ Chester6370 [facility] [id number] WBC #/vol (Bld) 6.2 {x10E3/uL} Normal 4.0-10.5 Compr ensive Internal Medicine Work Phone: Comment on above: PATIENT NOT FASTINGP ERFORMED BY: ORTIZ Chester6370 [facility] [id number] METABOLIC PANEL, COMPREHENSI VE (49263)Ordered By: Lpn Rn Hospice on 10-14-2010 Albumin mass conc 4.4 g/dL Normal 3.5-4.8 Compreh page hospitalive Internal Medicine Work Phone: Comment on above: PATIENT NOT FASTINGP ERFORMED BY: ORTIZ Chester6370 [facility] [id number] Information: 845977,[id number] Albumin/Globulin mass ratio 1.8 {ratio} Normal 1.1-2.5 [facility] Work Phone: Comment on above: PATIENT NOT FASTINGP ERFORMED BY: ORTIZ Crowelin6370 [facility] [id number] Information: 046609,[id number] ALP enzyme act/vol 84 [iU]/L Normal 25-165 Compre [facility] Internal Medicine Work Phone: Comment on above: PATIENT NOT FASTINGP ERFORMED BY: ORTIZ Crowelin6370 [facility] [id number] Information: 606066,Q55652 ALT enzyme act/vol 13 [iU]/L Normal 0-40 Compre [facility] Internal Medicine Work Phone: Comment on above: PATIENT NOT FASTINGP ERFORMED BY: CB [facility] Kgorcf5522 Rodriguez RoadDublin [place] [id number] Information: 852496,[id number] AST enzyme act/vol 13 [iU]/L Normal 0-40 Compre hensive Internal Medicine Work Phone: Comment on above: PATIENT NOT FASTINGP ERFORMED BY: CB [facility] Qhmjwe3202 Rodriguez Roadblin [place] [id number] Information: 253267,[id number] Bilirubin mass conc 0.2 mg/dL Normal 0.0-1.2 Compr ensive Internal Medicine Work Phone: Comment on above: PATIENT NOT FASTINGP ERFORMED BY: CB [facility] Kqwgci3436 Rodriguez Roadblin [place] [id number] Information: 762711,Y12734 Calcium mass conc 10.4 mg/dL Abnormal 8.6-10.2 Compreh ensive Internal Medicine Work Phone: Comment on above: PATIENT NOT FASTINGP ERFORMED BY: CB [facility] Bjmhvx1885 Rodriguez Roadblin [place] [id number] Information: 550454,A16944 Chloride molar conc 101 mmol/L Normal 97-108 Compr ensive Internal Medicine Work Phone: Comment on above: PATIENT NOT FASTINGP ERFORMED BY: CB [facility] Ywqvsq4735 Rodriguez Roadblin [place] [id number] Information: 616520,S72374 CO2 molar conc 28 mmol/L Normal 20-32 Comprehens trupti Internal Medicine Work Phone: Comment on above: PATIENT NOT FASTINGP ERFORMED BY: CB [facility] Innxkq0883 Rodriguez RoadDublin [place] [id number] Information: 340968,D96835 Creatinine mass conc 0.70 mg/dL Normal 0.57-1.00 Comp [facility] Work Phone: Comment on above: PATIENT NOT FASTINGP ERFORMED BY: CB [facility] Lfodrv9139 Rodriguez RoadDublin [place] [id number] Information: 559021,C59037 GFR/1.73 sq M predicted among blacks MDRD [...] PATIENT NOT FASTINGP ERFORMED BY: ORTIZ [facility] Omoncl2317 [facility] [id number] Information: 327581,P05047 GFR/1.73 sq M.predicted MDRD (S/P/Bld) [Vol rate/Area] mL/min/{1.73_m2} Normal [facility] Work Phone: Comment on above: PATIENT NOT FASTINGP ERFORMED BY: ORTIZ [facility] Sggpoi3498 [facility] [id number] Information: 019998,I58057 GFR/1.73 sq M.predicted MDRD vol rate/area mL/min/{1.73_m2} Normal [facility] Work Phone: Comment on above: PATIENT NOT FASTINGP ERFORMED BY: ORTIZ [facility] Zknimo7589 [facility] [id number] Information: 925567,T56019 Globulin mass conc (S) 2.5 g/dL Normal 1.5-4.5 Co mprehensive [facility] Medicine Work Phone: Comment on above: PATIENT NOT FASTINGP ERFORMED BY: ORTIZ [facility] Cwidax6974 [facility] [id number] Information: 079617,B66913 Glucose mass conc 88 mg/dL Normal 65-99 Compreh ensive Internal Medicine Work Phone: Comment on above: PATIENT NOT FASTINGP ERFORMED BY: ORTIZ HouMeadowview Psychiatric HospitalYjvgdk1198 [address] [facility] [id number] Information: 422390,W44130 Potassium molar conc 4.6 mmol/L Normal 3.5-5.2 Comp rehensive Internal Medicine Work Phone: Comment on above: PATIENT NOT FASTINGP ERFORMED BY: ORTIZ RobledoCo Vgsmxq6038 [address] [facility] [id number] Information: 916878,D22088 Protein mass conc 6.9 g/dL Normal 6.0-8.5 Compreh ensive Internal Medicine Work Phone: Comment on above: PATIENT NOT FASTINGP ERFORMED BY: ORTIZ Hou Uqmsbp3350 [address] [facility] [id number] Information: 983547,E72643 Sodium molar conc 140 mmol/L Normal 135-145 Compreh ensive Internal Medicine Work Phone: Comment on above: PATIENT NOT FASTINGP ERFORMED BY: ORTIZ Hou Glkrty3504 [address] [facility] [id number] Information: 516588,I30890 Urea nitrogen mass conc 9 mg/dL Normal 8-27 [facility] Work Phone: Comment on above: PATIENT NOT FASTINGP ERFORMED BY: ORTIZ Hou Fxftck4576 [address] [facility] [id number] Information: 883713,L65192 Urea nitrogen/Creatinine mass ratio 13 mg/mg Normal 11-26 [facility] Work Phone: Comment on above: PATIENT NOT FASTINGP ERFORMED BY: [facility] Uojvcn1437 [address] [facility] [id number] Information: 517346,N09068 TSH (99686)Ordered By: Samantha Montelongo on 10-14-2010 Thyrotropin Qn 1.320 {uIU/mL} Normal 0.450-4.50 0 [facility] Work Phone: Comment on above: PATIENT NOT FASTINGP ERFORMED BY: [facility]Core[facility]6370 [facility] [id number] URINALYSIS W/O MICRO (65903) Ordered By: Lpn Rn Hospice on 10-14-2010 Appearance Nom (U) Clear Normal Compre hensive Internal Medicine Work Phone: Comment on above: PATIENT NOT FASTINGP ERFORMED BY: ORTIZ Ameyaaustyn CroweVrjkdk5546 Rodriguez RoadAtrium Health Carol[facility] Rehabilitation [place]in [place] [id number] Bilirubin Ql (U) Negative Normal Comprehe nsive Internal Medicine Work Phone: Comment on above: PATIENT NOT FASTINGP ERFORMED BY: ORTIZ Ameyaaustyn CroweDotjpl8177 [address] [facility]in [place] [id number] Color Nom (U) Yellow Normal Comprehensi ve Internal Medicine Work Phone: Comment on above: PATIENT NOT FASTINGP ERFORMED BY: ORTIZ MeenaAleksandr CroweJcvdsk9736 [address] [facility] [id number] Glucose Ql (U) Negative Normal Comprehens trupti Internal Medicine Work Phone: Comment on above: PATIENT NOT FASTINGP ERFORMED BY: ORTIZ Ameyaaustyn CroweUcvmvp8789 [address] [facility] [id number] Hemoglobin Ql (U) Negative Normal Compreh ensive Internal Medicine Work Phone: Comment on above: PATIENT NOT FASTINGP ERFORMED BY: ORTIZ MeenaAleksandr CroweUxkapa1416 [address] [facility] [id number] Ketones Ql (U) Negative Normal Comprehens trupti Internal Medicine Work Phone: Comment on above: PATIENT NOT FASTINGP ERFORMED BY: ORTIZ MeenaAleksandr CroweAnlpuc4608 [address] [facility] [id number] Leukocyte esterase Test strip Ql (U) Negative Normal [facility] Work Phone: Comment on above: PATIENT NOT FASTINGP ERFORMED BY: ORTIZ LabKellie Skykkq4976 [address] [facility] [id number] Microscopic observation LM Nom (Urine sed) MICRON Normal [facility] Work Phone: Comment on above: Microscopic follows if indicated. PATIENT NOT FASTINGP ERFORMED BY: ORTIZ [facility] Xdecih7504 [address] [facility] [id number] Nitrite Ql (U) Negative Normal Comprehens trupti Internal Medicine Work Phone: Comment on above: PATIENT NOT FASTINGP ERFORMED BY: ORTIZ Chester[address] [facility] [place] [id number] pH (U) 6.5 [pH] Normal 5.0-7.5 [facility] Work Phone: Comment on above: PATIENT NOT FASTINGP ERFORMED BY: ORTIZ Chester[address] [facility] [id number] Protein Ql (U) Negative Normal Comprehens trupti Internal Medicine Work Phone: Comment on above: PATIENT NOT FASTINGP ERFORMED BY: ORTIZ Chester6[address] [facility] [id number] Specific gravity Relative Density (U) 1.020 1 Normal 1.005-1.03 0 [facility] Work Phone: Comment on above: PATIENT NOT FASTINGP ERFORMED BY: ORTIZ Chester6370 [facility] [id number] Urobilinogen Test strip mass conc (U) 0.2 mg/dL Normal 0.0-1.9 Comprehensiv e Internal Medicine Work Phone: Comment on above: PATIENT NOT FASTINGP ERFORMED BY: ORTIZ Chester6370 [facility] [id number] VITAMIN B-12 (CYANOCOBALAMIN ) (62883)Ordered By: Lpn Rn Hospice on 10-14-2010 Cobalamin (Vitamin B12) mass conc 246 pg/mL Normal 211-946 [facility] Work Phone: Comment on above: PATIENT NOT FASTINGP ERFORMED BY: ORTIZ [facility] Jmjxcu4104 [facility] [id number] LIPID PANEL (25075)Ordered B y: Lpn Rn Hospice on 12-14-2009 Cholesterol in HDL mass conc 54 mg/dL Normal [facility] Work Phone: Comment on above: According to ATP-III Guidelines, HDL-C >59 mg/dL is considered anegative risk factor for CHD. PATIENT WAS FASTINGP ERFORMED BY: [facility] Rurcsv5486 [address] [facility] [id number] Information: 300528,I20206 Cholesterol in LDL mass conc 111 mg/dL Abnormal 0-99 [facility] Work Phone: Comment on above: PATIENT WAS FASTINGP ERFORMED BY: [facility] Polwnd3332 [address] [facility] [id number] Information: 717063,F51037 Cholesterol in LDL/Cholesterol in HDL mass ratio 2.1 {ratio_units} Normal 0.0-3.2 [facility] Work Phone: Comment on above: PATIENT WAS FASTINGP ERFORMED BY: [facility] Hmxhqb2722 [address] [facility] [id number] Information: 676374,D66877 Cholesterol in VLDL mass conc 21 mg/dL Normal 5-40 [facility] Work Phone: Comment on above: PATIENT WAS FASTINGP ERFORMED BY: [facility] Oofxbv6857 [facility] [id number] Information: 364154,J51107 Cholesterol mass conc 186 mg/dL Normal 100-199 [facility] Internal Medicine Work Phone: Comment on above: PATIENT WAS FASTINGP ERFORMED BY: [facility] Icfjnz3380 [facility] [id number] Information: 243173,G55073 Triglyceride mass conc 103 mg/dL Normal 0-149 Co [facility] Internal Medicine Work Phone: Comment on above: PATIENT WAS FASTINGP ERFORMED BY: [facility] Kdesid4191 [facility] [id number] Information: 453795,G62011 TSH (73420)Ordered By: Samantha Montelongo on 12-14-2009 Thyrotropin Qn 1.680 {uIU/mL} Normal 0.450-4.50 0 [facility] Work Phone: Comment on above: PATIENT WAS FASTINGP ERFORMED BY: [facility] Tkhmho9572 [facility] [id number] CBC WITH MANUAL DIFF (21572) Ordered By: Lpn Rn Hospice on 12-13-2009 Basophils #/vol (Bld) 0.0 {x10E3/uL} Normal 0.0-0.2 [facility] Work Phone: Comment on above: PATIENT NOT FASTINGP ERFORMED BY: [facility] Fbfssz9027 [address] [facility] [id number] Information: 969584,X03973 Basophils/100 WBC (Bld) 0 % Normal 0-3 [facility] Work Phone: Comment on above: PATIENT NOT FASTINGP ERFORMED BY: LabCoMeadowview Psychiatric HospitalDbjypm8055 [address] [facility] [id number] Information: 558313,K15543 Eosinophils #/vol (Bld) 0.0 {x10E3/uL} Normal 0.0-0.4 [facility] Work Phone: Comment on above: PATIENT NOT FASTINGP ERFORMED BY: LabCoMeadowview Psychiatric HospitalMbejsx1168 [address] [facility] [id number] Information: 691054,A33269 Eosinophils/100 WBC (Bld) 0 % Normal 0-7 [facility] Work Phone: Comment on above: PATIENT NOT FASTINGP ERFORMED BY: LabCoMeadowview Psychiatric HospitalRgvdva1127 RodriguezB[facility] [id number] Information: 489096,H96424 Erythrocyte distribution width Ratio (RBC) 13.9 % Normal 11.7-15.0 [facility] Work Phone: Comment on above: PATIENT NOT FASTINGP ERFORMED BY: [facility] Afipvj8757 [address] [facility] [id number] Information: 137970,Y79422 Hematocrit Volume Fraction (Bld) 38.9 % Normal 34.0-44.0 [facility] Work Phone: Comment on above: PATIENT NOT FASTINGP ERFORMED BY: [facility] Apdwpw8103 [address] [facility] [id number] Information: 423763,K49909 Hemoglobin mass conc (Bld) 13.7 g/dL Normal 11.5-15.0 [facility] Work Phone: Comment on above: PATIENT NOT FASTINGP ERFORMED BY: ORTIZ LabCoMeadowview Psychiatric HospitalTlhhlv4754 [facility] [id number] Information: 307768,F84770 Lymphocytes #/vol (Bld) 1.3 {x10E3/uL} Normal 0.7-4.5 [facility] Work Phone: Comment on above: PATIENT NOT FASTINGP ERFORMED BY: Lab[address] [id number] Information: 608732,M80985 Lymphocytes/100 WBC (Bld) 20 % Normal 14-46 [facility] Work Phone: Comment on above: PATIENT NOT FASTINGP ERFORMED BY: [address] [id number] Information: 526543,G54198 MCH Entitic mass (RBC) 31.3 pg Normal 27.0-34.0 [facility] Internal Medicine Work Phone: Comment on above: PATIENT NOT FASTINGP ERFORMED BY: [address] [id number] Information: 963182,R71660 MCHC mass conc (RBC) 35.2 g/dL Normal 32.0-36.0 [facility] Internal Medicine Work Phone: Comment on above: PATIENT NOT FASTINGP ERFORMED BY: LabCorewell [facility] Hospital6370 [facility] [id number] Information: 008758,K39740 MCV Entitic volume (RBC) 89 fL Normal 80-[address] [facility] Internal Medicine Work Phone: Comment on above: PATIENT NOT FASTINGP ERFORMED BY: [place] 7753070 [facility] [id number] Information: 775996,L63337 Monocytes #/vol (Bld) 0.4 {x10E3/uL} Normal 0.1-1.0 [facility] Work Phone: Comment on above: PATIENT NOT FASTINGP ERFORMED BY: ORTIZ Chester6370 [facility] [id number] Information: 038874,[id number] Monocytes/100 WBC (Bld) 6 % Normal 4-13 [facility] Work Phone: Comment on above: PATIENT NOT FASTINGP ERFORMED BY: LabCoMeadowview Psychiatric HospitalTgccxo0268 [facility] [id number] Information: 583677,T88816 Neutrophils #/vol (Bld) 5.0 {x10E3/uL} Normal 1.8-7.8 [facility] Work Phone: Comment on above: PATIENT NOT FASTINGP ERFORMED BY: LabCorewell [facility]eland Hospital6370 [facility] [id number] Information: 548690,Q62756 Neutrophils/100 WBC (Bld) 74 % Normal 40-74 [facility] Work Phone: Comment on above: PATIENT NOT FASTINGP ERFORMED BY: LabCoMeadowview Psychiatric HospitalJhjkhc7427 [facility] [id number] Information: 096770,X62601 Platelets #/vol (Bld) 228 {x10E3/uL} Normal 140-415 [facility] Work Phone: Comment on above: PATIENT NOT FASTINGP ERFORMED BY: CB LabCoMeadowview Psychiatric HospitalNumnai9822 [facility] [id number] Information: 741240,[id number] RBC #/vol (Bld) 4.38 {x10E6/uL} Normal 3.80-5.10 [facility] Internal Medicine Work Phone: Comment on above: PATIENT NOT FASTINGP ERFORMED BY: LabCoMeadowview Psychiatric HospitalMbajgk9001 [facility] [id number] Information: 672119,K63517 WBC #/vol (Bld) 6.7 {x10E3/uL} Normal 4.0-10.5 [facility] Internal Medicine Work Phone: Comment on above: PATIENT NOT FASTINGP ERFORMED BY: ORTIZ Chester[address] [facility] [id number] Information: 498110,C28610 METABOLIC PANEL, COMPREHENSI VE (56987)Ordered By: Lpn Rn Hospice on 12-13-2009 Albumin mass conc 4.1 g/dL Normal 3.5-4.8 Compreh [facility] Internal Medicine Work Phone: Comment on above: PATIENT NOT FASTINGP ERFORMED BY: ORTIZ [facility] Egtzth9870 [facility] [id number] Albumin/Globulin mass ratio 1.7 {ratio} Normal 1.1-2.[address] [facility] Internal Medicine Work Phone: Comment on above: PATIENT NOT FASTINGP ERFORMED BY: ORTIZ LabAleksandr CroweDirmgl2814 [facility] [id number] ALP enzyme act/vol 82 [iU]/L Normal 25-165 [facility] Work Phone: Comment on above: PATIENT NOT FASTINGP ERFORMED BY: ORTIZ [facility] Khxsgo6197 [facility] [id number] ALT enzyme act/vol 12 [iU]/L Normal 0-40 [facility] Internal [facility] Work Phone: Comment on above: PATIENT NOT FASTINGP ERFORMED BY: ORTIZ [facility] Dfamya8182 [facility] [id number] AST enzyme act/vol 19 [iU]/L Normal 0-40 [facility] Internal Medicine Work Phone: Comment on above: PATIENT NOT FASTINGP ERFORMED BY: ORTIZ [facility] Jcbdhh5439 [address] [facility] [id number] Bilirubin mass conc 0.2 mg/dL Normal 0.1-1.2 [facility] Internal Medicine Work Phone: Comment on above: PATIENT NOT FASTINGP ERFORMED BY: ORTIZ [facility] Cohgbn8335 [facility] [id number] Calcium mass conc 9.6 mg/dL Normal 8.6-10.2 Compreh ensive Internal Medicine Work Phone: Comment on above: PATIENT NOT FASTINGP ERFORMED BY: ORTIZ Chester6370 [facility] [id number] Chloride molar conc 104 mmol/L Normal 97-108 Compr ehensive Internal Medicine Work Phone: Comment on above: PATIENT NOT FASTINGP ERFORMED BY: ORTIZ Crowelin6370 [facility] [id number] CO2 molar conc 25 mmol/L Normal 20-32 Comprehens trupti Internal Medicine Work Phone: Comment on above: PATIENT NOT FASTINGP ERFORMED BY: ORTIZ Crowelin6370 [facility] [id number] Creatinine mass conc 0.71 mg/dL Normal 0.57-1.00 Comp rehensive Internal Medicine Work Phone: Comment on above: PATIENT NOT FASTINGP ERFORMED BY: ORTIZ Crowelin6370 [facility] [id number] GFR/1.73 sq M predicted among blacks MDRD [...] [email or web address]. PATIENT NOT FASTINGP ERFORMED BY: ORTIZ LabCoasutyn CroweWxkcqp9322 [facility] [id number] GFR/1.73 sq M.predicted MDRD (S/P/Bld) [Vol rate/Area] mL/min/{1.73_m2} Normal [facility] Work Phone: Comment on above: PATIENT NOT FASTINGP ERFORMED BY: ORTIZ LabCoaustyn Mycztt8548 [address] [facility] [id number] GFR/1.73 sq M.predicted MDRD vol rate/area mL/min/{1.73_m2} Normal [facility] Work Phone: Comment on above: PATIENT NOT FASTINGP ERFORMED BY: ORTIZ Crowelin6370 [address] [facility] [id number] Globulin mass conc (S) 2.4 g/dL Normal 1.5-4.5 Co mprehensive Internal Medicine Work Phone: Comment on above: PATIENT NOT FASTINGP ERFORMED BY: ORTIZ [facility] Llgsyb1923 [address] [facility] [id number] Glucose mass conc 89 mg/dL Normal 65-99 Compreh ensive Internal Medicine Work Phone: Comment on above: PATIENT NOT FASTINGP ERFORMED BY: ORTIZ [facility] [id number] Ordriguez [facility] [id number] Potassium molar conc 5.0 mmol/L Normal 3.5-5.2 Comp rehensive Internal Medicine Work Phone: Comment on above: PATIENT NOT FASTINGP ERFORMED BY: ORTIZ [facility] [id number] Rodriguez [facility] [id number] Protein mass conc 6.5 g/dL Normal 6.0-8.5 Compreh ensive Internal Medicine Work Phone: Comment on above: PATIENT NOT FASTINGP ERFORMED BY: ORTIZ [facility] [id number] Rodriguez [facility] [id number] Sodium molar conc 142 mmol/L Normal 135-145 Compreh ensive Internal Medicine Work Phone: Comment on above: PATIENT NOT FASTINGP ERFORMED BY: ORTIZ [facility] [id number] [facility] [place] [id number] Urea nitrogen mass conc 10 mg/dL Normal 5-26 [facility] Work Phone: Comment on above: PATIENT NOT FASTINGP ERFORMED BY: ORTIZ [facility] [id number] [facility] [place] [id number] Urea nitrogen/Creatinine mass ratio 14 mg/mg Normal 8-27 [facility] Work Phone: Comment on above: PATIENT NOT FASTINGP ERFORMED BY: [facility] [id number] [facility] [id number] Urinalysis, Office ([id number])Or dered By: Radha Velez on 09-21-2008 Bilirubin [...] Bacteria identified Cx Nom (U) Escherichia coli [facility] Work Phone: Vital Signs Date Time Vital Sign Value Performing Clinician Facility 03-02-2025 18:29-0400 Body height 157.[address] Yesika Faust MD Work Phone: [facility] 05-05-2019 10:14-0400 BMI (Body Mass Index) 33.02 kg/m2 Mirella Nicole [facility] Internal Medicine Work Phone: 05-05-2019 10:14-0400 Body weight 74.16 kg Mirella Mccracken [facility] Internal Medicine Work Phone: 05-05-2019 10:14-0400 BP Diastolic 80 mm[Hg] Mirella Mccracken [facility] Internal Medicine Work Phone: Comment on above: Patient Position: Sitting; Cuff Location : Left Arm; Cuff Size: Large 05-05-2019 10:14-0400 BP Systolic 138 mm[Hg] Mirella Mccracken [facility] Internal Medicine Work Phone: Comment on above: Patient Position: Sitting; Cuff Location : Left Arm; Cuff Size: Large 05-05-2019 10:14-0400 BSA (Body Surface Area) 1.69 m2 Mirella Mccracken [facility] Internal Medicine Work Phone: 05-05-2019 10:14-0400 Height 149.86 cm Mirella Mccracken [facility] Internal Medicine Work Phone: 05-05-2019 10:14-0400 Pulse (Heart Rate) 68 /min Mirella Mccracken [facility] Internal Medicine Work Phone: Comment on above: Pattern: Regular 05-05-2019 10:14-0400 Pulse Oximetry 95 % Mirella Mccracken [facility] Internal Medicine Work Phone: Comment on above: Room air 05-05-2019 10:14-0400 Respiratory Rate 18 /min Mirella Mccracken [facility] Internal Medicine Work Phone: Comment on above: Pattern: Unlabored 03-15-2019 09:59-0400 BMI (Body Mass Index) 33.4 kg/m2 Mirella Solano [facility] Internal Medicine Work Phone: 03-15-2019 09:59-0400 Body weight 75.01 kg Mirella Mccracken [facility] Internal Medicine Work Phone: 03-15-2019 09:59-0400 BP Diastolic 82 mm[Hg] Mirella Mccracken [facility] Internal Medicine Work Phone: Comment on above: Patient Position: Sitting; Cuff Location : Left Arm; Cuff Size: Large 03-15-2019 09:59-0400 BP Systolic 168 mm[Hg] Mirella Mccracken [facility] Internal Medicine Work Phone: Comment on above: Patient Position: Sitting; Cuff Location : Left Arm; Cuff Size: Large 03-15-2019 09:59-0400 BSA (Body Surface Area) 1.7 m2 iMrella Mccracken [facility] Internal Medicine Work Phone: 03-15-2019 09:59-0400 Height 149.86 cm Mirella Mccracken [facility] Internal Medicine Work Phone: 03-15-2019 09:59-0400 Pulse (Heart Rate) 88 /min Mirella Mccracken [facility] Internal Medicine Work Phone: Comment on above: Pattern: Regular 03-15-2019 09:59-0400 Pulse Oximetry 98 % Mirella Mccracken [facility] Internal Medicine Work Phone: Comment on above: Room air 03-15-2019 09:59-0400 Respiratory Rate 18 /min Mirella Mccracken [facility] Internal Medicine Work Phone: Comment on above: Pattern: Unlabored 01-21-2018 08:25-0400 BMI (Body Mass Index) 29.34 kg/m2 Mirella Mccracken [facility] Internal Medicine Work Phone: 01-21-2018 08:25-0400 Body weight 65.89 kg Mirella Mccracken [facility] Internal Medicine Work Phone: 01-21-2018 08:25-0400 BP Diastolic 84 mm[Hg] Mirella Mccracken [facility] Internal Medicine Work Phone: Comment on above: Patient Position: Sitting; Cuff Location : Left Arm; Cuff Size: Large 01-21-2018 08:25-0400 BP Systolic 128 mm[Hg] Mirella Mccracken [facility] Internal Medicine Work Phone: Comment on above: Patient Position: Sitting; Cuff Location : Left Arm; Cuff Size: Large 01-21-2018 08:25-0400 BSA (Body Surface Area) 1.61 m2 Mirella Mccracken [facility] Internal Medicine Work Phone: 01-21-2018 08:25-0400 Height 149.86 cm Mirella Mccracken [facility] Internal Medicine Work Phone: 01-21-2018 08:25-0400 Pulse (Heart Rate) 84 /min Mirella Mccracken [facility] Internal Medicine Work Phone: Comment on above: Pattern: Regular 01-21-2018 08:25-0400 Pulse Oximetry 98 % Mirella Mccracken [facility] Internal Medicine Work Phone: Comment on above: Room air 01-21-2018 08:25-0400 Respiratory Rate 18 /min Mirella Mccracken [facility] Internal Medicine Work Phone: Comment on above: Pattern: Unlabored 01-21-2018 08:25-0400 Weight 65.89 kg Mirella Mccracken [facility] Internal Medicine Work Phone: 11-09-2017 14:35-0500 BMI (Body Mass Index) 28.91 kg/m2 Mirella Mccracken [facility] Internal Medicine Work Phone: 11-09-2017 14:35-0500 Body weight 64.92 kg Mirella Mccracken [facility] Internal Medicine Work Phone: 11-09-2017 14:35-0500 BP Diastolic 90 mm[Hg] Mirella Mccracken [facility] Internal Medicine Work Phone: Comment on above: Patient Position: Sitting; Cuff Location : Left Arm; Cuff Size: Large 11-09-2017 14:35-0500 BP Systolic 148 mm[Hg] Mirella Mccracken [facility] Internal Medicine Work Phone: Comment on above: Patient Position: Sitting; Cuff Location : Left Arm; Cuff Size: Large 11-09-2017 14:35-0500 BSA (Body Surface Area) 1.6 m2 Mirella Mccracken [facility] Internal Medicine Work Phone: 11-09-2017 14:35-0500 Height 149.86 cm Mirella Mccracken [facility] Internal Medicine Work Phone: 11-09-2017 14:35-0500 Pulse (Heart Rate) 67 /min Mirella Mccracken [facility] Internal Medicine Work Phone: Comment on above: Pattern: Regular 11-09-2017 14:35-0500 Pulse Oximetry 98 % Mirella Mccracken [facility] Internal Medicine Work Phone: Comment on above: Room air 11-09-2017 14:35-0500 Respiratory Rate 18 /min Mirella Mccracken [facility] Internal Medicine Work Phone: Comment on above: Pattern: Unlabored 11-09-2017 14:35-0500 Weight 64.92 kg Mirella Mccracken [facility] Internal Medicine Work Phone: 10-15-2017 09:58-0500 BMI (Body Mass Index) 28.91 kg/m2 Mirella Mccracken [facility] Internal Medicine Work Phone: 10-15-2017 09:58-0500 Body weight 64.92 kg Mirella Mccracken [facility] Internal Medicine Work Phone: 10-15-2017 09:58-0500 BP Diastolic 78 mm[Hg] Mirella Mccracken [facility] Internal Medicine Work Phone: Comment on above: Patient Position: Sitting; Cuff Location : Left Arm; Cuff Size: Large 10-15-2017 09:58-0500 BP Systolic 146 mm[Hg] Mirella Mccracken [facility] Internal Medicine Work Phone: Comment on above: Patient Position: Sitting; Cuff Location : Left Arm; Cuff Size: Large 10-15-2017 09:58-0500 BSA (Body Surface Area) 1.6 m2 Mirella Mccracken [facility] Internal Medicine Work Phone: 10-15-2017 09:58-0500 Height 149.86 cm Mirella Mccracken [facility] Internal Medicine Work Phone: 10-15-2017 09:58-0500 Pulse (Heart Rate) 74 /min Mirella Mccracken [facility] Internal Medicine Work Phone: Comment on above: Pattern: Regular 10-15-2017 09:58-0500 Pulse Oximetry 99 % Mirella Mccracken [facility] Internal Medicine Work Phone: Comment on above: Room air 10-15-2017 09:58-0500 Respiratory Rate 18 /min Mirella Mccracken [facility] Internal Medicine Work Phone: Comment on above: Pattern: Unlabored 10-15-2017 09:58-0500 Weight 64.92 kg Mirella Mccracken [facility] Internal Medicine Work Phone: 09-18-2017 09:08-0500 BMI (Body Mass Index) 28.91 kg/m2 Mirella Mccracken [facility] Internal Medicine Work Phone: 09-18-2017 09:08-0500 Body weight 64.92 kg Mirella Mccracken [facility] Internal Medicine Work Phone: 09-18-2017 09:08-0500 BP Diastolic 82 mm[Hg] Mirella Mccracken [facility] Internal Medicine Work Phone: Comment on above: Patient Position: Sitting; Cuff Location : Left Arm; Cuff Size: Large 09-18-2017 09:08-0500 BP Systolic 128 mm[Hg] Mirella Mccracken [facility] Internal Medicine Work Phone: Comment on above: Patient Position: Sitting; Cuff Location : Left Arm; Cuff Size: Large 09-18-2017 09:08-0500 BSA (Body Surface Area) 1.6 m2 Mirella Mccracken [facility] Internal Medicine Work Phone: 09-18-2017 09:08-0500 Height 149.86 cm Mirella Mccracken [facility] Internal Medicine Work Phone: 09-18-2017 09:08-0500 Pulse (Heart Rate) 72 /min Mirella Mccracken [facility] Internal Medicine Work Phone: Comment on above: Pattern: Regular 09-18-2017 09:08-0500 Pulse Oximetry 98 % Mirella Mccracken [facility] Internal Medicine Work Phone: Comment on above: Room air 09-18-2017 09:08-0500 Respiratory Rate 18 /min Mirella Mccracken [facility] Internal Medicine Work Phone: Comment on above: Pattern: Unlabored 09-18-2017 09:08-0500 Weight 64.92 kg Mirella Mccracken [facility] Internal Medicine Work Phone: 06-05-2017 11:24-0400 BMI (Body Mass Index) 29.67 kg/m2 [facility] Work Phone: 06-05-2017 11:24-0400 BP Diastolic 68 mm[Hg] [facility] Work Phone: 06-05-2017 11:24-0400 BP Systolic 126 mm[Hg] [facility] Work Phone: 06-05-2017 11:24-0400 Height 147.32 cm [facility] Work Phone: 06-05-2017 11:24-0400 Pulse (Heart Rate) 72 /min [facility] Work Phone: 06-05-2017 11:24-0400 Respiratory Rate 18 /min [facility] Work Phone: 06-05-2017 11:24-0400 Weight 64.41 kg [facility] Work Phone: 05-07-2017 11:04-0400 BMI (Body Mass Index) 29.29 kg/m2 Mirella Mccracken [facility] Internal Medicine Work Phone: 05-07-2017 11:04-0400 Body weight 65.77 kg Mirella Mccracken [facility] Internal Medicine Work Phone: 05-07-2017 11:04-0400 BP Diastolic 82 mm[Hg] Mirella Mccracken [facility] Internal Medicine Work Phone: Comment on above: Patient Position: Sitting; Cuff Location : Left Arm; Cuff Size: Standard 05-07-2017 11:04-0400 BP Systolic 128 mm[Hg] Mirella Mccracken [facility] Internal Medicine Work Phone: Comment on above: Patient Position: Sitting; Cuff Location : Left Arm; Cuff Size: Standard 05-07-2017 11:04-0400 BSA (Body Surface Area) 1.61 m2 Mirella Mccracken [facility] Internal Medicine Work Phone: 05-07-2017 11:04-0400 Height 149.86 cm Mirella Mccracken [facility] Internal Medicine Work Phone: 05-07-2017 11:04-0400 Pulse (Heart Rate) 65 /min Mirella Mccracken [facility] Internal Medicine Work Phone: Comment on above: Pattern: Regular 05-07-2017 11:04-0400 Pulse Oximetry 98 % Mirella Mccracken [facility] Internal Medicine Work Phone: Comment on above: Room air 05-07-2017 11:04-0400 Respiratory Rate 18 /min Mirella Mccracken [facility] Internal Medicine Work Phone: Comment on above: Pattern: Unlabored 05-07-2017 11:04-0400 Weight 65.77 kg Mirella Mccracken [facility] Internal Medicine Work Phone: 03-26-2017 08:06-0400 BMI (Body Mass Index) 29.29 kg/m2 Mirella Mccracken [facility] Internal Medicine Work Phone: 03-26-2017 08:06-0400 Body Temperature 97.5 [degF] Mirella Mccracken [facility] Internal Medicine Work Phone: Comment on above: Method: Temporal 03-26-2017 08:06-0400 Body weight 65.77 kg Mirella Mccracken [facility] Internal Medicine Work Phone: 03-26-2017 08:06-0400 BP Diastolic 84 mm[Hg] Mirella Mccracken [facility] Internal Medicine Work Phone: Comment on above: Patient Position: Sitting; Cuff Location : Left Arm; Cuff Size: Large 03-26-2017 08:06-0400 BP Systolic 126 mm[Hg] Mirella Mccracken [facility] Internal Medicine Work Phone: Comment on above: Patient Position: Sitting; Cuff Location : Left Arm; Cuff Size: Large 03-26-2017 08:06-0400 BSA (Body Surface Area) 1.61 m2 Mirella Mccracken [facility] Internal Medicine Work Phone: 03-26-2017 08:06-0400 Height 149.86 cm Mirella Mccracken [facility] Internal Medicine Work Phone: 03-26-2017 08:06-0400 Pulse (Heart Rate) 82 /min Mirella Mccracken [facility] Internal Medicine Work Phone: Comment on above: Pattern: Regular 03-26-2017 08:06-0400 Pulse Oximetry 98 % Mirella Mccracken [facility] Internal Medicine Work Phone: Comment on above: Room air 03-26-2017 08:06-0400 Respiratory Rate 16 /min Mirella Mccracken [facility] Internal Medicine Work Phone: Comment on above: Pattern: Unlabored 03-26-2017 08:06-0400 Weight 65.77 kg Mirella Mccracken [facility] Internal Medicine Work Phone: 12-25-2016 10:08-0400 BMI (Body Mass Index) 29.51 kg/m2 Mirella Mccracken [facility] Internal Medicine Work Phone: 12-25-2016 10:08-0400 Body weight 66.28 kg Mirella Mccracken [facility] Internal Medicine Work Phone: 12-25-2016 10:08-0400 BP Diastolic 80 mm[Hg] Mirella Mccracken [facility] Internal Medicine Work Phone: Comment on above: Patient Position: Sitting; Cuff Location : Left Arm; Cuff Size: Large 12-25-2016 10:08-0400 BP Systolic 122 mm[Hg] Mirella Mccracken [facility] Internal Medicine Work Phone: Comment on above: Patient Position: Sitting; Cuff Location : Left Arm; Cuff Size: Large 12-25-2016 10:08-0400 BSA (Body Surface Area) 1.61 m2 Mirella Mccracken [facility] Internal Medicine Work Phone: 12-25-2016 10:08-0400 Height 149.86 cm Mirella Mccracken [facility] Internal Medicine Work Phone: 12-25-2016 10:08-0400 Pulse (Heart Rate) 69 /min Mirella Mccracken [facility] Internal Medicine Work Phone: Comment on above: Pattern: Regular 12-25-2016 10:08-0400 Pulse Oximetry 98 % Mirella Mccracken [facility] Internal Medicine Work Phone: Comment on above: Room air 12-25-2016 10:08-0400 Respiratory Rate 18 /min Mirella Mccracken [facility] Internal Medicine Work Phone: Comment on above: Pattern: Unlabored 12-25-2016 10:08-0400 Weight 66.28 kg Mirella Mccracken [facility] Internal Medicine Work Phone: 11-03-2016 14:09-0500 BSA (Body Surface Area) 1.59 m2 [facility] Work Phone: 09-25-2016 07:51-0500 BMI (Body Mass Index) 29.94 kg/m2 Mirella Mccracken [facility] Internal Medicine Work Phone: 09-25-2016 07:51-0500 Body Temperature 97.6 [degF] Mirella Mccracken [facility] Internal Medicine Work Phone: 09-25-2016 07:51-0500 Body weight 67.25 kg Mirella Mccracken [facility] Internal Medicine Work Phone: 09-25-2016 07:51-0500 BP Diastolic 78 mm[Hg] Mirella Mccracken [facility] Internal Medicine Work Phone: Comment on above: Patient Position: Sitting; Cuff Location : Left Arm; Cuff Size: Standard 09-25-2016 07:51-0500 BP Systolic 122 mm[Hg] Mirella Mccracken [facility] Internal Medicine Work Phone: Comment on above: Patient Position: Sitting; Cuff Location : Left Arm; Cuff Size: Standard 09-25-2016 07:51-0500 BSA (Body Surface Area) 1.62 m2 Mirella Mccracken [facility] Internal Medicine Work Phone: 09-25-2016 07:51-0500 Height 149.86 cm Mirella Mccracken [facility] Internal Medicine Work Phone: 09-25-2016 07:51-0500 Pulse (Heart Rate) 94 /min Mirella Mccracken [facility] Internal Medicine Work Phone: Comment on above: Pattern: Regular 09-25-2016 07:51-0500 Pulse Oximetry 96 % Mirella Mccracken [facility] Internal Medicine Work Phone: Comment on above: Room air 09-25-2016 07:51-0500 Respiratory Rate 17 /min Mirella Mccracken [facility] Internal Medicine Work Phone: Comment on above: Pattern: Unlabored 09-25-2016 07:51-0500 Weight 67.25 kg Mirella Mccracken [facility] Internal Medicine Work Phone: 06-25-2016 08:52-0400 BMI (Body Mass Index) 29.54 kg/m2 Mirella Mccracken [facility] Internal Medicine Work Phone: 06-25-2016 08:52-0400 Body weight 66.34 kg Mirella Mccracken [facility] Internal Medicine Work Phone: 06-25-2016 08:52-0400 BP Diastolic 60 mm[Hg] Mirella Mccracken [facility] Internal Medicine Work Phone: Comment on above: Patient Position: Sitting; Cuff Location : Left Arm; Cuff Size: Standard 06-25-2016 08:52-0400 BP Systolic 110 mm[Hg] Mirella Mccracken [facility] Internal Medicine Work Phone: Comment on above: Patient Position: Sitting; Cuff Location : Left Arm; Cuff Size: Standard 06-25-2016 08:52-0400 BSA (Body Surface Area) 1.61 m2 Mirella Mccracken [facility] Internal Medicine Work Phone: 06-25-2016 08:52-0400 Height 149.86 cm Mirella Mccracken [facility] Internal Medicine Work Phone: 06-25-2016 08:52-0400 Pulse (Heart Rate) 72 /min Mirella Mccracken [facility] Internal Medicine Work Phone: Comment on above: Pattern: Regular 06-25-2016 08:52-0400 Pulse Oximetry 100 % Mirella Mccracken [facility] Internal Medicine Work Phone: Comment on above: Room air 06-25-2016 08:52-0400 Respiratory Rate 18 /min Mirella Mccracken [facility] Internal Medicine Work Phone: Comment on above: Pattern: Unlabored 06-25-2016 08:52-0400 Weight 66.34 kg Mirella Mccracken [facility] Internal Medicine Work Phone: 05-21-2016 08:08-0400 BMI (Body Mass Index) 29.39 kg/m2 Mirella Mccracken [facility] Internal Medicine Work Phone: 05-21-2016 08:08-0400 Body Temperature 97.2 [degF] Mirella Mccracken [facility] Internal Medicine Work Phone: 05-21-2016 08:08-0400 Body weight 66 kg Mirella Mccracken [facility] Internal Medicine Work Phone: 05-21-2016 08:08-0400 BP Diastolic 82 mm[Hg] Mirella Mccracken [facility] Internal Medicine Work Phone: Comment on above: Patient Position: Sitting; Cuff Location : Left Arm; Cuff Size: Standard 05-21-2016 08:08-0400 BP Systolic 124 mm[Hg] Mirella Mccracken [facility] Internal Medicine Work Phone: Comment on above: Patient Position: Sitting; Cuff Location : Left Arm; Cuff Size: Standard 05-21-2016 08:08-0400 BSA (Body Surface Area) 1.61 m2 Mirella Mccracken [facility] Internal Medicine Work Phone: 05-21-2016 08:08-0400 Height 149.86 cm Mirella Mccracken [facility] Internal Medicine Work Phone: 05-21-2016 08:08-0400 Pulse (Heart Rate) 80 /min Mirella Mccracken [facility] Internal Medicine Work Phone: Comment on above: Pattern: Regular 05-21-2016 08:08-0400 Pulse Oximetry 98 % Mirella Mccracken [facility] Internal Medicine Work Phone: Comment on above: Room air 05-21-2016 08:08-0400 Respiratory Rate 16 /min Mirella Mccracken [facility] Internal Medicine Work Phone: Comment on above: Pattern: Unlabored 05-21-2016 08:08-0400 Weight 66 kg Mirella Mccracken [facility] Internal Medicine Work Phone: 01-04-2016 09:52-0400 BMI (Body Mass Index) 29.59 kg/m2 Mirella Solano [facility] Work Phone: 01-04-2016 09:52-0400 Body weight 66.45 kg Mirella Mccracken [facility] Internal Medicine Work Phone: 01-04-2016 09:52-0400 BP Diastolic 64 mm[Hg] Mirella Mccracken [facility] Internal Medicine Work Phone: Comment on above: Patient Position: Sitting; Cuff Location : Left Arm; Cuff Size: Standard 01-04-2016 09:52-0400 BP Systolic 110 mm[Hg] Mirella Mccracken [facility] Internal Medicine Work Phone: Comment on above: Patient Position: Sitting; Cuff Location : Left Arm; Cuff Size: Standard 01-04-2016 09:52-0400 BSA (Body Surface Area) 1.62 m2 Mirella Mccracken [facility] Internal Medicine Work Phone: 01-04-2016 09:52-0400 Height 149.86 cm Mirella Mccracken [facility] Medicine Work Phone: 01-04-2016 09:52-0400 Pulse (Heart Rate) 64 /min Mirella Mccracken [facility] Internal Medicine Work Phone: Comment on above: Pattern: Regular 01-04-2016 09:52-0400 Pulse Oximetry 97 % Mirella Mccracken [facility] Internal Medicine Work Phone: Comment on above: Room air 01-04-2016 09:52-0400 Respiratory Rate 18 /min Mirella Mccracken [facility] Internal Medicine Work Phone: Comment on above: Pattern: Unlabored 01-04-2016 09:52-0400 Weight 66.45 kg Mirella Mccracken [facility] Internal Medicine Work Phone: 12-06-2015 09:19-0400 BMI (Body Mass Index) 29.89 kg/m2 Mirella Solano [facility] Work Phone: 12-06-2015 09:19-0400 Body weight 67.13 kg Mirella Mccracken [facility] Internal Medicine Work Phone: 12-06-2015 09:19-0400 BP Diastolic 78 mm[Hg] Mirella Mccracken [facility] Internal Medicine Work Phone: Comment on above: Patient Position: Sitting; Cuff Location : Left Arm; Cuff Size: Large 12-06-2015 09:19-0400 BP Systolic 122 mm[Hg] Mirella Mccracken [facility] Internal Medicine Work Phone: Comment on above: Patient Position: Sitting; Cuff Location : Left Arm; Cuff Size: Large 12-06-2015 09:190400 BSA (Body Surface Area) 1.62 m2 Mirella Mccracken [facility] Internal Medicine Work Phone: 12-06-2015 09:19-0400 Height 149.86 cm Mirella Mccracken [facility] Internal Medicine Work Phone: 12-06-2015 09:19-0400 Pulse (Heart Rate) 73 /min Mirella Mccracken [facility] Internal Medicine Work Phone: Comment on above: Pattern: Regular 12-06-2015 09:19-0400 Pulse Oximetry 99 % Mirella Mccracken [facility] Internal Medicine Work Phone: Comment on above: Room air 12-06-2015 09:19-0400 Respiratory Rate 18 /min Mirella Mccracken [facility] Internal Medicine Work Phone: Comment on above: Pattern: Unlabored 12-06-2015 09:19-0400 Weight 67.13 kg Mirella Mccracken [facility] Internal Medicine Work Phone: 11-29-2015 09:09-0400 BMI (Body Mass Index) 29.72 kg/m2 Mirella Mccracken [facility] Internal Medicine Work Phone: 11-29-2015 09:09-0400 Body Temperature 98.2 [degF] Mirella Mccracken [facility] Internal Medicine Work Phone: Comment on above: Method: Oral 11-29-2015 09:09-0400 Body weight 66.74 kg Mirella Mccracken [facility] Internal Medicine Work Phone: 11-29-2015 09:09-0400 BP Diastolic 58 mm[Hg] Mirella Mccracken [facility] Internal Medicine Work Phone: Comment on above: Patient Position: Sitting; Cuff Location : Left Arm; Cuff Size: Large 11-29-2015 09:09-0400 BP Systolic 100 mm[Hg] Mirella Mccracken [facility] Internal Medicine Work Phone: Comment on above: Patient Position: Sitting; Cuff Location : Left Arm; Cuff Size: Large 11-29-2015 09:09-0400 BSA (Body Surface Area) 1.62 m2 Mirella Mccracken [facility] Internal Medicine Work Phone: 11-29-2015 09:09-0400 Height 149.86 cm Mirella Mccracken [facility] Internal Medicine Work Phone: 11-29-2015 09:09-0400 Pulse (Heart Rate) 71 /min Mirella Mccracken [facility] Internal Medicine Work Phone: Comment on above: Pattern: Regular 11-29-2015 09:09-0400 Pulse Oximetry 98 % Mirella Mccracken [facility] Internal Medicine Work Phone: Comment on above: Room air 11-29-2015 09:09-0400 Respiratory Rate 18 /min Mirella Mccracken [facility] Internal Medicine Work Phone: Comment on above: Pattern: Unlabored 11-29-2015 09:09-0400 Weight 66.74 kg Mirella Mccracken [facility] Internal Medicine Work Phone: 10-24-2015 10:01-0500 BMI (Body Mass Index) 30.78 kg/m2 Mirella Mccracken [facility] Internal Medicine Work Phone: Comment on above: Dr. Goldstein and had a [facility] test [facility]he [facility] 10-24-2015 10:01-0500 Body weight 69.12 kg Mirella Mccracken [facility] Internal Medicine Work Phone: Comment on above: Dr. Goldstein and had a glaucoma test donehe [facility] 10-24-2015 10:01-0500 BP Diastolic 82 mm[Hg] [facility] Internal Medicine Work Phone: Comment on above: Patient Position: Sitting; Cuff Location : Left Arm; Cuff Size: Large [facility]-24-2015 10:01-0500 BP Systolic 124 mm[Hg] [facility] Internal Medicine Work Phone: Comment on above: Patient Position: Sitting; Cuff Location : Left Arm; Cuff Size: Large [facility] 10-24-2015 10:01-0500 BSA (Body Surface Area) 1.64 m2 [facility] Internal Medicine Work Phone: Comment on above: Dr. Goldstein and had a glaucoma test [facility] 10-24-2015 10:01-0500 Height 149.86 cm [facility] Internal Medicine Work Phone: Comment on above: Dr. Goldstein and had a glaucoma test [facility] 10-24-2015 10:01-0500 Pulse (Heart Rate) 66 /min [facility] Internal Medicine Work Phone: Comment on above: Pattern: Regular [facility] 10-24-2015 10:01-0500 Pulse Oximetry 98 % [facility] Medicine Work Phone: Comment on above: Room air [facility] Goldstein [facility] 10-24-2015 10:01-0500 Respiratory Rate 18 /min [facility] Internal Medicine Work Phone: Comment on above: Pattern: Unlabored Dr[facility] 10-24-2015 10:01-0500 Weight 69.12 kg [facility] Medicine Work Phone: Comment on above: [facility] 07-26-2015 10:22-0500 BMI (Body Mass Index) 32.32 kg/m2 [facility] Internal Medicine Work Phone: 07-26-2015 10:22-0500 Body weight 72.58 kg Mirella [facility] Internal Medicine Work Phone: 07-26-2015 10:22-0500 BP Diastolic 80 mm[Hg] Mirella [facility] Work Phone: Comment on above: Patient Position: Sitting; Cuff Location : Left Arm; Cuff Size: Large 07-26-2015 10:22-0500 BP Systolic 138 mm[Hg] Mirella Mccrack[facility] Work Phone: Comment on above: Patient Position: Sitting; Cuff Location : Left Arm; Cuff Size: Large 07-26-2015 10:22-0500 BSA (Body Surface Area) 1.68 m2 Mirella Mccracken [facility] Work Phone: 07-26-2015 10:22-0500 Height 149.86 cm Mirella Mccrack[facility] Work Phone: 07-26-2015 10:22-0500 Pulse (Heart Rate) 62 /min Mirella Mccrack[facility] Work Phone: Comment on above: Pattern: Regular 07-26-2015 10:22-0500 Pulse Oximetry 98 % Mirella Mccracken [facility] Internal Medicine Work Phone: Comment on above: Room air 07-26-2015 10:22-0500 Respiratory Rate 18 /min Mirella Mccracken [facility] Work Phone: Comment on above: Pattern: Unlabored 07-26-2015 10:22-0500 Weight 72.58 kg Mirella [facility] Internal Medicine Work Phone: 07-06-2015 09:03-0400 Body weight 72.12 kg Mirella [facility] Internal Medicine Work Phone: 07-06-2015 09:03-0400 BP Diastolic 78 mm[Hg] Mirella [facility] Work Phone: Comment on above: Patient Position: Sitting; Cuff Location : Left Arm; Cuff Size: Large 07-06-2015 09:03-0400 BP Systolic 122 mm[Hg] Mirella Mccracken [facility] Internal Medicine Work Phone: Comment on above: Patient Position: Sitting; Cuff Location : Left Arm; Cuff Size: Large 07-06-2015 09:03-0400 Pulse (Heart Rate) 68 /min Mirella Mccracken [facility] Internal Medicine Work Phone: Comment on above: Pattern: Regular 07-06-2015 09:03-0400 Pulse Oximetry 98 % Mirella Mccracken [facility] Internal Medicine Work Phone: Comment on above: Room air 07-06-2015 09:03-0400 Respiratory Rate 18 /min Mirella Mccracken [facility] Internal Medicine Work Phone: Comment on above: Pattern: Unlabored 07-06-2015 09:03-0400 Weight 72.12 kg Mirella Mccracken [facility] Internal Medicine Work Phone: 04-19-2015 10:10-0400 BMI (Body Mass Index) 31.02 kg/m2 Mirella Mccracken [facility] Internal Medicine Work Phone: 04-19-2015 10:10-0400 Body Temperature 97.5 [degF] Mirella Mccracken [facility] Internal Medicine Work Phone: Comment on above: Method: Temporal 04-19-2015 10:10-0400 Body weight 69.67 kg Mirella Mccracken [facility] Internal Medicine Work Phone: 04-19-2015 10:10-0400 BP Diastolic 82 mm[Hg] Mirella Mccracken [facility] Internal Medicine Work Phone: Comment on above: Patient Position: Sitting; Cuff Location : Left Arm; Cuff Size: Standard 04-19-2015 10:10-0400 BP Systolic 124 mm[Hg] Mirella Mccracken [facility] Internal Medicine Work Phone: Comment on above: Patient Position: Sitting; Cuff Location : Left Arm; Cuff Size: Standard 04-19-2015 10:10-0400 BSA (Body Surface Area) 1.65 m2 Mirella Mccracken [facility] Internal Medicine Work Phone: 04-19-2015 10:10-0400 Height 149.86 cm Mirella Mccracken [facility] Internal Medicine Work Phone: 04-19-2015 [id number] Pulse (Heart Rate) 62 /min Mirella Mccracken [facility] Internal Medicine Work Phone: Comment on above: Pattern: Regular 04-19-2015 10:100400 Pulse Oximetry 98 % Mirella Mccracken [facility] Internal Medicine Work Phone: Comment on above: Room air 04-19-2015 10:100400 Respiratory Rate 16 /min Mirella Mccracken [facility] Internal Medicine Work Phone: Comment on above: Pattern: Unlabored 04-19-2015 10:100400 Weight 69.67 kg Mirella Mccracken [facility] Internal Medicine Work Phone: 01-11-2015 10:29-0400 BMI (Body Mass Index) 31.2 kg/m2 Mirella Mccracken [facility] Internal Medicine Work Phone: 01-11-2015 10:29-0400 Body weight 70.08 kg Mirella Mccracken [facility] Internal Medicine Work Phone: 01-11-2015 10:29-0400 BP Diastolic 80 mm[Hg] Mirella Mccracken [facility] Internal Medicine Work Phone: Comment on above: Patient Position: Sitting; Cuff Location : Left Arm; Cuff Size: Standard 01-11-2015 10:290400 BP Systolic 128 mm[Hg] Mirella Mccracken [facility] Internal Medicine Work Phone: Comment on above: Patient Position: Sitting; Cuff Location : Left Arm; Cuff Size: Standard 01-11-2015 10:290400 BSA (Body Surface Area) 1.65 m2 Mirella Mccracken [facility] Internal Medicine Work Phone: 01-11-2015 10:290400 Height 149.86 cm Mirella Mccracken [facility] Internal Medicine Work Phone: 01-11-2015 10:29-0400 Pulse (Heart Rate) 56 /min Mirella Mccracken [facility] Internal Medicine Work Phone: Comment on above: Pattern: Regular 01-11-2015 10:29-0400 Pulse Oximetry 98 % Mirella Mccrack[facility] Work Phone: Comment on above: Room air 01-11-2015 10:29-0400 Respiratory Rate 18 /min Mirella Mccrack[facility] Work Phone: Comment on above: Pattern: Unlabored 01-11-2015 10:29-0400 Weight 70.08 kg Mirella Mccrack[facility] Work Phone: 10-31-2014 11:54-0500 Body Temperature 98.4 [degF] Mirella Mccrack[facility] Work [...] 11:54-0500 Respiratory Rate 18 /min Mirella Mccrack[facility] Work Phone: Comment on above: Pattern: Unlabored 10-31-2014 11:54-0500 Weight 70.76 kg Mirella M[facility] Work Phone: 10-12-2014 10:10-0500 Body Temperature 96.2 [degF] Mirella Mccrack[facility] Work Phone: Comment on above: Method: Oral [facility] 03/2014[facility] 10-12-2014 10:10-0500 Body weight 70.76 kg Mirella Mccrack[facility] Work Phone: Comment on above: [facility] 03/2014[facility] 10-12-2014 10:10-0500 BP Diastolic 82 mm[Hg] Mirella Mccrack[facility] Work Phone: Comment on above: Patient Position: Sitting; Cuff Location : Left Arm; Cuff Size: Large [facility] 03/2014[facility] 10-12-2014 10:10-0500 BP Systolic 132 mm[Hg] Mirella Mccracken [facility] Internal Medicine Work Phone: Comment on above: Patient Position: Sitting; Cuff Location : Left Arm; Cuff Size: Large [facility] 03/2014[facility] 10-12-2014 10:10-0500 Pulse (Heart Rate) 61 /min Mirella Mccracken [facility] Internal Medicine Work Phone: Comment on above: Pattern: Regular [facility] 03/2014[facility] 10-12-2014 10:10-0500 Pulse Oximetry 96 % Mirella Mccracken [facility] Internal Medicine Work Phone: Comment on above: Room air [facility] 03/2014[facility] 10-12-2014 10:10-0500 Respiratory Rate 18 /min Mirella Mccracken [facility] Internal Medicine Work Phone: Comment on above: Pattern: Unlabored [facility] 03/2014[facility] 10-12-2014 10:10-0500 Weight 70.76 kg Mirella Mccracken [facility] Work Phone: Comment on above: [facility] 03/2014[facility] 08-31-2014 11:25-0500 Body weight 68.66 kg Mirella Mccracken [facility] Work Phone: 08-31-2014 11:25-0500 BP Diastolic 82 mm[Hg] Mirella Mccrack[facility] Work Phone: Comment on above: Patient Position: Sitting; Cuff Location : Left Arm; Cuff Size: Large 08-31-2014 11:25-0500 BP Systolic 138 mm[Hg] Mirella Mccracken [facility] Internal Medicine Work Phone: Comment on above: Patient Position: Sitting; Cuff Location : Left Arm; Cuff Size: Large 08-31-2014 11:25-0500 Pulse (Heart Rate) 56 /min Mirella Mccracken [facility] Internal Medicine Work Phone: Comment on above: Pattern: Regular 08-31-2014 11:25-0500 Respiratory Rate 18 /min Mirella Mccracken [facility] Internal Medicine Work Phone: Comment on above: Pattern: Unlabored 08-31-2014 11:25-0500 Weight 68.66 kg Mirella Mccracken [facility] Internal Medicine Work Phone: 08-14-2014 14:10-0500 Body Temperature 97.3 [degF] Mirella Mccracken [facility] Internal Medicine Work Phone: Comment on above: Method: Oral 08-14-2014 14:10-0500 Body weight 69.15 kg Mirella Mccracken [facility] Internal Medicine Work Phone: 08-14-2014 14:10-0500 BP Diastolic 72 mm[Hg] Mirella Mccracken [facility] Internal Medicine Work Phone: Comment on above: Patient Position: Sitting; Cuff Location : Left Arm; Cuff Size: Standard 08-14-2014 14:10-0500 BP Systolic 132 mm[Hg] Mirella Mccracken [facility] Internal Medicine Work Phone: Comment on above: Patient Position: Sitting; Cuff Location : Left Arm; Cuff Size: Standard 08-14-2014 14:10-0500 Pulse (Heart Rate) 53 /min Mirella Mccracken [facility] Internal Medicine Work Phone: Comment on above: Pattern: Regular 08-14-2014 14:10-0500 Pulse Oximetry 97 % Mirella Mccracken [facility] Internal Medicine Work Phone: Comment on above: Room air 08-14-2014 14:10-0500 Respiratory Rate 16 /min Mirella Mccracken [facility] Internal Medicine Work Phone: Comment on above: Pattern: Unlabored 08-14-2014 14:10-0500 Weight 69.15 kg Mirella Mccracken [facility] Internal Medicine Work Phone: 07-26-2014 10:15-0500 BMI (Body Mass Index) 30.55 kg/m2 Mirella Mccracken [facility] Internal Medicine Work Phone: 07-26-2014 10:15-0500 Body Temperature 97.4 [degF] Mirella Mccracken [facility] Internal Medicine Work Phone: Comment on above: Method: Oral 07-26-2014 10:15-0500 Body weight 68.61 kg Mirella Mccracken [facility] Internal Medicine Work Phone: 07-26-2014 10:15-0500 BP Diastolic 70 mm[Hg] Mirella Mccracken [facility] Internal Medicine Work Phone: Comment on above: Patient Position: Sitting; Cuff Location : Left Arm; Cuff Size: Standard 07-26-2014 10:15-0500 BP Systolic 110 mm[Hg] Mirella Mccracken [facility] Internal Medicine Work Phone: Comment on above: Patient Position: Sitting; Cuff Location : Left Arm; Cuff Size: Standard 07-26-2014 10:15-0500 BSA (Body Surface Area) 1.64 m2 Mirella Mccracken [facility] Internal Medicine Work Phone: 07-26-2014 10:15-0500 Height 149.86 cm Mirella Mccracken [facility] Internal Medicine Work Phone: 07-26-2014 10:15-0500 Pulse (Heart Rate) 66 /min Mirella Mccracken [facility] Internal Medicine Work Phone: Comment on above: Pattern: Regular 07-26-2014 10:15-0500 Pulse Oximetry 95 % Mirella Mccracken [facility] Internal Medicine Work Phone: Comment on above: Room air 07-26-2014 10:15-0500 Respiratory Rate 15 /min Mirella Mccracken [facility] Internal Medicine Work Phone: 07-26-2014 10:15-0500 Weight 68.61 kg Mirella Mccracken [facility] Internal Medicine Work Phone: 07-25-2014 14:56-0500 BMI (Body Mass Index) 30.55 kg/m2 Mirella Mccracken [facility] Internal Medicine Work Phone: 07-25-2014 14:56-0500 Body weight 68.61 kg Mirella Mccracken [facility] Internal Medicine Work Phone: 07-25-2014 14:56-0500 BP Diastolic 80 mm[Hg] Mirella Mccracken [facility] Internal Medicine Work Phone: Comment on above: Patient Position: Sitting; Cuff Location : Left Arm; Cuff Size: Large 07-25-2014 14:56-0500 BP Systolic 140 mm[Hg] Mirella Mccracken [facility] Internal Medicine Work Phone: Comment on above: Patient Position: Sitting; Cuff Location : Left Arm; Cuff Size: Large 07-25-2014 14:56-0500 BSA (Body Surface Area) 1.64 m2 Mirella Mccracken [facility] Internal Medicine Work Phone: 07-25-2014 14:56-0500 Height 149.86 cm Mirella Mccracken [facility] Internal Medicine Work Phone: 07-25-2014 14:56-0500 Pulse (Heart Rate) 59 /min Mirella Mccracken [facility] Internal Medicine Work Phone: Comment on above: Pattern: Regular 07-25-2014 14:56-0500 Pulse Oximetry 98 % Mirella Mccracken [facility] Internal Medicine Work Phone: Comment on above: Room air 07-25-2014 14:56-0500 Respiratory Rate 18 /min Mirella Mccracken [facility] Internal Medicine Work Phone: Comment on above: Pattern: Unlabored 07-25-2014 14:56-0500 Weight 68.61 kg Mirella Mccracken [facility] Internal Medicine Work Phone: 07-13-2014 12:20-0400 BMI (Body Mass Index) 30.5 kg/m2 Mirella Mccracken [facility] Internal Medicine Work Phone: 07-13-2014 12:20-0400 Body weight 68.49 kg Mirella Mccracken [facility] Internal Medicine Work Phone: 07-13-2014 12:20-0400 BP Diastolic 78 mm[Hg] Mirella Mccracken [facility] Internal Medicine Work Phone: Comment on above: Patient Position: Sitting; Cuff Location : Left Arm; Cuff Size: Large 07-13-2014 12:20-0400 BP Systolic 138 mm[Hg] Mirella Mccracken [facility] Internal Medicine Work Phone: Comment on above: Patient Position: Sitting; Cuff Location : Left Arm; Cuff Size: Large 07-13-2014 12:20-0400 BSA (Body Surface Area) 1.64 m2 Mirella Mccracken [facility] Internal Medicine Work Phone: 07-13-2014 12:20-0400 Height 149.86 cm Mirella Mccracken [facility] Internal Medicine Work Phone: 07-13-2014 12:20-0400 Pulse (Heart Rate) 58 /min Mirella Mccracken [facility] Internal Medicine Work Phone: Comment on above: Pattern: Regular 07-13-2014 12:20-0400 Pulse Oximetry 96 % Mirella Mccracken [facility] Internal Medicine Work Phone: Comment on above: Room air 07-13-2014 12:20-0400 Respiratory Rate 20 /min Mirella Mccracken [facility] Internal Medicine Work Phone: Comment on above: Pattern: Unlabored 07-13-2014 12:20-0400 Weight 68.49 kg Mirella Mccracken [facility] Internal Medicine Work Phone: 04-17-2014 11:27-0400 BMI (Body Mass Index) 30.59 kg/m2 Mirella [facility] Internal Medicine Work Phone: 04-17-2014 11:27-0400 Body weight 68.69 kg Mirella Mccracken [facility] Internal Medicine Work Phone: 04-17-2014 11:27-0400 BP Diastolic 70 mm[Hg] Mirella Mccracken [facility] Internal Medicine Work Phone: Comment on above: Patient Position: Sitting; Cuff Location : Left Arm; Cuff Size: Large 04-17-2014 11:27-0400 BP Systolic 124 mm[Hg] Mirella Mccracken [facility] Internal Medicine Work Phone: Comment on above: Patient Position: Sitting; Cuff Location : Left Arm; Cuff Size: Large 04-17-2014 11:27-0400 BSA (Body Surface Area) 1.64 m2 Mirella Mccracken [facility] Internal Medicine Work Phone: 04-17-2014 11:27040 Height 149.86 cm Mirella Mccracken [facility] Internal Medicine Work Phone: 04-17-2014 11:27-0400 Pulse (Heart Rate) 72 /min Mirella Mccracken [facility] Internal Medicine Work Phone: Comment on above: Pattern: Regular 04-17-2014 11:27-0400 Pulse Oximetry 97 % Mirella Mccracken [facility] Internal Medicine Work Phone: Comment on above: Room air 04-17-2014 11:27-0400 Respiratory Rate 18 /min Mirella Mccracken [facility] Internal Medicine Work Phone: Comment on above: Pattern: Unlabored 04-17-2014 11:27-0400 Weight 68.69 kg Mirella Mccracken [facility] Internal Medicine Work Phone: 04-06-2014 11:09-0400 BMI (Body Mass Index) 30.59 kg/m2 Mirella Mccracken [facility] Internal Medicine Work Phone: 04-06-2014 11:09-0400 Body weight 68.69 kg Mirella Mccracken [facility] Internal Medicine Work Phone: 04-06-2014 11:09-0400 BP Diastolic 80 mm[Hg] Mirella Mccracken [facility] Internal Medicine Work Phone: Comment on above: Patient Position: Sitting; Cuff Location : Left Arm; Cuff Size: Standard 04-06-2014 11:09-0400 BP Systolic 142 mm[Hg] Mirella Mccracken [facility] Internal Medicine Work Phone: Comment on above: Patient Position: Sitting; Cuff Location : Left Arm; Cuff Size: Standard 04-06-2014 11:090400 BSA (Body Surface Area) 1.64 m2 Mirella Mccracken [facility] Internal Medicine Work Phone: 04-06-2014 11:09-0400 Height 149.86 cm Mirella Mccracken [facility] Internal Medicine Work Phone: 04-06-2014 11:09-0400 Pulse (Heart Rate) 73 /min Mirella Mccracken [facility] Internal Medicine Work Phone: Comment on above: Pattern: Regular 04-06-2014 11:0400 Pulse Oximetry 97 % Mirella Mccracken [facility] Internal Medicine Work Phone: Comment on above: Room air 04-06-2014 11:090400 Respiratory Rate 18 /min Mirella Mccracken [facility] Internal Medicine Work Phone: Comment on above: Pattern: Unlabored 04-06-2014 11:090400 Weight 68.69 kg Mirella Mccracken [facility] Internal Medicine Work Phone: 12-30-2013 10:27-0400 BMI (Body Mass Index) 32.03 kg/m2 Mirella Mccracken [facility] Internal Medicine Work Phone: 12-30-2013 10:27-0400 Body Temperature 98.2 [degF] Mirella Mccracken [facility] Internal Medicine Work Phone: Comment on above: Method: Oral 12-30-2013 10:27-0400 Body weight 71.92 kg Mirella Mccracken [facility] Internal Medicine Work Phone: 12-30-2013 10:27-0400 BP Diastolic 70 mm[Hg] Mirella Mccracken [facility] Internal Medicine Work Phone: Comment on above: Patient Position: Sitting; Cuff Location : Left Arm; Cuff Size: Large 12-30-2013 10:27-0400 BP Systolic 120 mm[Hg] Mirella Mccracken [facility] Internal Medicine Work Phone: Comment on above: Patient Position: Sitting; Cuff Location : Left Arm; Cuff Size: Large 12-30-2013 10:0400 BSA (Body Surface Area) 1.67 m2 Mirella Mccracken [facility] Internal Medicine Work Phone: 12-30-2013 10:27-0400 Height 149.86 cm Mirella Mccracken [facility] Internal Medicine Work Phone: 12-30-2013 10:27-0400 Pulse (Heart Rate) 66 /min Mirella Mccracken [facility] Internal Medicine Work Phone: Comment on above: Pattern: Regular 12-30-2013 10:27-0400 Pulse Oximetry 97 % Mirella Mccracken [facility] Internal Medicine Work Phone: Comment on above: Room air 12-30-2013 10:27-0400 Respiratory Rate 20 /min Mirella Mccracken [facility] Internal Medicine Work Phone: Comment on above: Pattern: Unlabored 12-30-2013 10:0400 Weight 71.92 kg Mirella Mccracken [facility] Internal Medicine Work Phone: 12-22-2013 10:090400 BMI (Body Mass Index) 31.79 kg/m2 Mirella Mccracken [facility] Internal Medicine Work Phone: 12-22-2013 10:090400 Body Temperature 98.2 [degF] Mirella Mccracken [facility] Internal Medicine Work Phone: Comment on above: Method: Oral 12-22-2013 10:0400 Body weight 71.39 kg Mirella Mccracken [facility] Internal Medicine Work Phone: 12-22-2013 10:09-0400 BP Diastolic 60 mm[Hg] Mirella Mccarcken [facility] Internal Medicine Work Phone: Comment on above: Patient Position: Sitting; Cuff Location : Left Arm; Cuff Size: Large 12-22-2013 10:09-0400 BP Systolic 104 mm[Hg] Mirella Mccracken [facility] Internal Medicine Work Phone: Comment on above: Patient Position: Sitting; Cuff Location : Left Arm; Cuff Size: Large 12-22-2013 10:09-0400 BSA (Body Surface Area) 1.67 m2 Mirella Mccracken [facility] Internal Medicine Work Phone: 12-22-2013 10:09-0400 Height 149.86 cm Mirella Mccracken [facility] Internal Medicine Work Phone: 12-22-2013 10:09-0400 Pulse (Heart Rate) 65 /min Mirella Mccracken [facility] Internal Medicine Work Phone: Comment on above: Pattern: Regular 12-22-2013 10:09-0400 Pulse Oximetry 98 % Mirella Mccracken [facility] Internal Medicine Work Phone: Comment on above: Room air 12-22-2013 10:09-0400 Respiratory Rate 20 /min Mirella Mccracken [facility] Internal Medicine Work Phone: Comment on above: Pattern: Unlabored 12-22-2013 10:09-0400 Weight 71.39 kg Mirella Mccracken [facility] Internal Medicine Work Phone: 12-01-2013 09:54-0400 BMI (Body Mass Index) 32.32 kg/m2 Mirella Mccracken [facility] Internal Medicine Work Phone: 12-01-2013 09:54-0400 Body Temperature 98.4 [degF] Mirella Mccracken [facility] Internal Medicine Work Phone: Comment on above: Method: Temporal 12-01-2013 09:54-0400 Body weight 72.58 kg Mirella Mccracken [facility] Internal Medicine Work Phone: 12-01-2013 09:54-0400 BP Diastolic 62 mm[Hg] Mirella Mccracken [facility] Internal Medicine Work Phone: Comment on above: Patient Position: Sitting; Cuff Location : Left Arm; Cuff Size: Standard 12-01-2013 09:54-0400 BP Systolic 124 mm[Hg] Mirella Mccracken [facility] Internal Medicine Work Phone: Comment on above: Patient Position: Sitting; Cuff Location : Left Arm; Cuff Size: Standard 12-01-2013 09:54-0400 BSA (Body Surface Area) 1.68 m2 Mirella Mccracken [facility] Internal Medicine Work Phone: 12-01-2013 09:54-0400 Height 149.86 cm Mirella Mccracken [facility] Internal Medicine Work Phone: 12-01-2013 09:54-0400 Pulse (Heart Rate) 69 /min Mirella Mccracken [facility] Internal Medicine Work Phone: Comment on above: Pattern: Regular 12-01-2013 09:54-0400 Pulse Oximetry 97 % Mirella Mccracken [facility] Internal Medicine Work Phone: Comment on above: Room air 12-01-2013 09:54-0400 Respiratory Rate 16 /min Mirella Mccracken [facility] Internal Medicine Work Phone: Comment on above: Pattern: Unlabored 12-01-2013 09:54-0400 Weight 72.58 kg Mirella Mccracken [facility] Internal Medicine Work Phone: 09-23-2013 11:57-0500 BMI (Body Mass Index) 33.01 kg/m2 Mirella Mccracken [facility] Internal Medicine Work Phone: 09-23-2013 11:57-0500 Body weight 74.14 kg Mirella Mccracken [facility] Internal Medicine Work Phone: 09-23-2013 11:57-0500 BP Diastolic 80 mm[Hg] Mirella Mccracken [facility] Internal Medicine Work Phone: Comment on above: Patient Position: Sitting; Cuff Location : Left Arm; Cuff Size: Large 09-23-2013 11:57-0500 BP Systolic 122 mm[Hg] Mirella Mccracken [facility] Internal Medicine Work Phone: Comment on above: Patient Position: Sitting; Cuff Location : Left Arm; Cuff Size: Large 09-23-2013 11:57-0500 BSA (Body Surface Area) 1.69 m2 Mirella Mccracken [facility] Internal Medicine Work Phone: 09-23-2013 11:57-0500 Height 149.86 cm Mirella Mccracken [facility] Internal Medicine Work Phone: 09-23-2013 11:57-0500 Pulse (Heart Rate) 66 /min Mirella Mccracken [facility] Internal Medicine Work Phone: Comment on above: Pattern: Regular 09-23-2013 11:57-0500 Pulse Oximetry 98 % Mirella Mccracken [facility] Internal Medicine Work Phone: Comment on above: Room air 09-23-2013 11:57-0500 Respiratory Rate 18 /min Mirella Mccracken [facility] Internal Medicine Work Phone: Comment on above: Pattern: Unlabored 09-23-2013 11:57-0500 Weight 74.14 kg Mirella Mccracken [facility] Internal Medicine Work Phone: 08-01-2013 10:54-0500 BMI (Body Mass Index) 33.58 kg/m2 Mirella Mccracken [facility] Internal Medicine Work Phone: 08-01-2013 10:54-0500 Body Temperature 98.3 [degF] Mirella Mccracken [facility] Internal Medicine Work Phone: Comment on above: Method: Oral 08-01-2013 10:54-0500 Body weight 75.41 kg Mirella Mccracken [facility] Internal Medicine Work Phone: 08-01-2013 10:54-0500 BP Diastolic 60 mm[Hg] Mirella Mccracken [facility] Internal Medicine Work Phone: Comment on above: Patient Position: Sitting; Cuff Location : Left Arm; Cuff Size: Large 08-01-2013 10:54-0500 BP Systolic 102 mm[Hg] Mirella Mccracken [facility] Internal Medicine Work Phone: Comment on above: Patient Position: Sitting; Cuff Location : Left Arm; Cuff Size: Large 08-01-2013 10:54-0500 BSA (Body Surface Area) 1.7 m2 Mirella Mccracken [facility] Internal Medicine Work Phone: 08-01-2013 10:54-0500 Height 149.86 cm Mirella Mccracken [facility] Internal Medicine Work Phone: 08-01-2013 10:54-0500 Pulse (Heart Rate) 68 /min Mirella Mccracken [facility] Internal Medicine Work Phone: Comment on above: Pattern: Regular 08-01-2013 10:54-0500 Pulse Oximetry 97 % Mirella Mccracken [facility] Internal Medicine Work Phone: Comment on above: Room air 08-01-2013 10:54-0500 Respiratory Rate 20 /min Mirella Mccracken [facility] Internal Medicine Work Phone: Comment on above: Pattern: Unlabored 08-01-2013 10:54-0500 Weight 75.41 kg Mirella Mccracken [facility] Medicine Work Phone: 07-04-2013 09:33-0400 BMI (Body Mass Index) 33.73 kg/m2 Mirella Mccracken [facility] Internal Medicine Work Phone: Comment on above: hearing denae Jones 07-04-2013 09:33-0400 Body Temperature 98.2 [degF] Mirella Mccracken [facility] Internal Medicine Work Phone: Comment on above: Method: Oral hearing denae Jones 07-04-2013 09:33-0400 Body [facility] 75.75 [facility]: Comment on above: hearing denae Jones 07-04-2013 09:33-0400 BP Diastolic 62 mm[Hg] [facility]: Comment on above: Patient Position: Sitting; Cuff Location : Left Arm; Cuff Size: Large adarsh Jones 07-04-2013 09:33-0400 BP Systolic 120 mm[Hg] [facility]: Comment on above: Patient Position: Sitting; Cuff Location : Left Arm; Cuff Size: Large adarsh Jones 07-04-2013 09:33-0400 BSA (Body Surface Area) 1.71 m2 [facility] Work [facility]: Comment on above: hearing denae Jones 07-04-2013 09:33-0400 Height 149.86 cm [facility] Work [facility]: Comment on above: hearing denae Jones 07-04-2013 09:33-0400 Pulse (Heart Rate) 52 /min Mirella Mccracken [facility] Internal Medicine Work Phone: Comment on above: Pattern: Regular hearing [facility] Dr Samaria Jones 07-04-2013 09:33-0400 Pulse Oximetry 97 % Mirella Mccracken [facility] Internal Medicine Work Phone: Comment on above: Room air hearing [facility] Dr Samaria Jones 07-04-2013 09:33-0400 Respiratory Rate 20 /min Mirella Mccracken [facility] Internal Medicine Work Phone: Comment on above: Pattern: Unlabored hearing [facility] Dr Samaria Jones 07-04-2013 09:33-0400 Weight 75.75 kg Mirella Mcrcacken [facility] Internal Medicine Work Phone: Comment on above: hearing [facility] Dr. Jones 06-27-2013 14:49-0400 BMI (Body Mass Index) 33.73 kg/m2 Mirella Mccracken [facility] Internal Medicine Work Phone: 06-27-2013 14:49-0400 Body weight 75.75 kg Mirella Mccracken [facility] Internal Medicine Work Phone: 06-27-2013 14:49-0400 BP Diastolic 62 mm[Hg] Mirella Mccracken [facility] Internal Medicine Work Phone: Comment on above: Patient Position: Sitting; Cuff Location : Left Arm; Cuff Size: Large 06-27-2013 14:49-0400 BP Systolic 128 mm[Hg] Mirella Mccracken [facility] Internal Medicine Work Phone: Comment on above: Patient Position: Sitting; Cuff Location : Left Arm; Cuff Size: Large 06-27-2013 14:49-0400 BSA (Body Surface Area) 1.71 m2 Mirella Mccracken [facility] Internal Medicine Work Phone: 06-27-2013 14:49-0400 Height 149.86 cm Mirella Mccracken [facility] Internal Medicine Work Phone: 06-27-2013 14:49-0400 Pulse (Heart Rate) 61 /min Mirella Mccracken [facility] Internal Medicine Work Phone: Comment on above: Pattern: Regular 06-27-2013 14:49-0400 Pulse Oximetry 98 % Mirella Mccracken [facility] Internal Medicine Work Phone: Comment on above: Room air 06-27-2013 14:49-0400 Respiratory Rate 20 /min Mirella Mccracken [facility] Internal Medicine Work Phone: Comment on above: Pattern: Unlabored 06-27-2013 14:49-0400 Weight 75.75 kg Mirella Mccracken [facility] Internal Medicine Work Phone: 06-20-2013 12:56-0400 BMI (Body Mass Index) 33.53 kg/m2 Mirella Mccracken [facility] Internal Medicine Work Phone: 06-20-2013 12:56-0400 Body Temperature 97.6 [degF] Mirella Mccracken [facility] Internal Medicine Work Phone: Comment on above: Method: Oral 06-20-2013 12:56-0400 Body weight 75.3 kg Mirella Mccracken [facility] Internal Medicine Work Phone: 06-20-2013 12:56-0400 BP Diastolic 68 mm[Hg] Mirella Mccracken [facility] Internal Medicine Work Phone: Comment on above: Patient Position: Sitting; Cuff Location : Left Arm; Cuff Size: Standard 06-20-2013 12:56-0400 BP Systolic 118 mm[Hg] Mirelal Mccracken [facility] Internal Medicine Work Phone: Comment on above: Patient Position: Sitting; Cuff Location : Left Arm; Cuff Size: Standard 06-20-2013 12:56-0400 BSA (Body Surface Area) 1.7 m2 Mirella Mccracken [facility] Internal Medicine Work Phone: 06-20-2013 12:56-0400 Height 149.86 cm Mirella Mccracken [facility] Internal Medicine Work Phone: 06-20-2013 12:56-0400 Pulse (Heart Rate) 68 /min Mirella Mccracken [facility] Internal Medicine Work Phone: Comment on above: Pattern: Regular 06-20-2013 12:56-0400 Respiratory Rate 20 /min Mirella Mccracken [facility] Internal Medicine Work Phone: Comment on above: Pattern: Unlabored 06-20-2013 12:56-0400 Weight 75.3 kg Mirella Mccracken [facility] Internal Medicine Work Phone: 05-20-2013 08:13-0400 BMI (Body Mass Index) 33.63 kg/m2 Mirella Mccracken [facility] Internal Medicine Work Phone: 05-20-2013 08:13-0400 Body weight 75.52 kg Mirella Mccracken [facility] Internal Medicine Work Phone: 05-20-2013 08:13-0400 BP Diastolic 62 mm[Hg] Mirella Mccracken [facility] Internal Medicine Work Phone: Comment on above: Patient Position: Sitting; Cuff Location : Left Arm; Cuff Size: Standard 05-20-2013 08:13-0400 BP Systolic 128 mm[Hg] Mirella Mccracken [facility] Internal Medicine Work Phone: Comment on above: Patient Position: Sitting; Cuff Location : Left Arm; Cuff Size: Standard 05-20-2013 08:13-0400 BSA (Body Surface Area) 1.71 m2 Mirella Mccracken [facility] Internal Medicine Work Phone: 05-20-2013 08:13-0400 Height 149.86 cm Mirella Mccracken [facility] Internal Medicine Work Phone: 05-20-2013 08:13-0400 Pulse (Heart Rate) 60 /min Mirella Mccracken [facility] Internal Medicine Work Phone: Comment on above: Pattern: Regular 05-20-2013 08:13-0400 Respiratory Rate 20 /min Mirella Mccracken [facility] Internal Medicine Work Phone: Comment on above: Pattern: Unlabored 05-20-2013 08:13-0400 Weight 75.52 kg Mirella Mccracken [facility] Internal Medicine Work Phone: 04-22-2013 15:16-0400 BMI (Body Mass Index) 33.63 kg/m2 Mirella Mccracken [facility] Internal Medicine Work Phone: 04-22-2013 15:16-0400 Body Temperature 96 [degF] Mirella Mccracken [facility] Internal Medicine Work Phone: Comment on above: Method: Oral 04-22-2013 15:16-0400 Body weight 75.52 kg Mirella Mccracken [facility] Internal Medicine Work Phone: 04-22-2013 15:16-0400 BP Diastolic 74 mm[Hg] Mirella Mccracken [facility] Internal Medicine Work Phone: Comment on above: Patient Position: Sitting; Cuff Location : Left Arm; Cuff Size: Large 04-22-2013 15:16-0400 BP Systolic 126 mm[Hg] Mirella Mccracken [facility] Internal Medicine Work Phone: Comment on above: Patient Position: Sitting; Cuff Location : Left Arm; Cuff Size: Large 04-22-2013 15:16-0400 BSA (Body Surface Area) 1.71 m2 Mirella Mccracken [facility] Internal Medicine Work Phone: 04-22-2013 15:16-0400 Height 149.86 cm Mirella Mccracken [facility] Internal Medicine Work Phone: 04-22-2013 15:16-0400 Pulse (Heart Rate) 64 /min Mirella Mccracken [facility] Internal Medicine Work Phone: Comment on above: Pattern: Regular 04-22-2013 15:16-0400 Respiratory Rate 18 /min Mirella Mccracken [facility] Internal Medicine Work Phone: Comment on above: Pattern: Unlabored 04-22-2013 15:16-0400 Weight 75.52 kg Mirella Mccracken [facility] Internal Medicine Work Phone: 04-15-2013 15:12-0400 BMI (Body Mass Index) 34.65 kg/m2 Mirella Mccracken [facility] Internal Medicine Work Phone: 04-15-2013 15:12-0400 Body Temperature 98 [degF] Mirella Mccracken [facility] Internal Medicine Work Phone: Comment on above: Method: Oral 04-15-2013 15:12-0400 Body weight 77.82 kg Mirella Mccracken [facility] Internal Medicine Work Phone: 04-15-2013 15:12-0400 BP Diastolic 70 mm[Hg] Mirella Mccracken [facility] Internal Medicine Work Phone: Comment on above: Patient Position: Sitting; Cuff Location : Left Arm; Cuff Size: Standard 04-15-2013 15:12-0400 BP Systolic 120 mm[Hg] Mirella Mccracken [facility] Internal Medicine Work Phone: Comment on above: Patient Position: Sitting; Cuff Location : Left Arm; Cuff Size: Standard 04-15-2013 15:12-0400 BSA (Body Surface Area) 1.73 m2 Mirella Mccracken [facility] Internal Medicine Work Phone: 04-15-2013 15:12-0400 Height 149.86 cm Mirella Mccracken [facility] Internal Medicine Work Phone: 04-15-2013 15:12-0400 Pulse (Heart Rate) 64 /min Mirella Mccracken [facility] Internal Medicine Work Phone: Comment on above: Pattern: Regular 04-15-2013 15:12-0400 Pulse Oximetry 98 % Mirella Mccracken [facility] Internal Medicine Work Phone: Comment on above: Room air 04-15-2013 15:12-0400 Weight 77.82 kg Mirella Mccracken [facility] Internal Medicine Work Phone: 03-31-2013 11:15-0400 BMI (Body Mass Index) 32.96 kg/m2 Mirella Mccracken [facility] Internal Medicine Work Phone: 03-31-2013 11:15-0400 Body Temperature 97.5 [degF] Mirella Mccracken [facility] Internal Medicine Work Phone: Comment on above: Method: Oral 03-31-2013 11:15-0400 Body weight 74.02 kg Mirella Mccracken [facility] Internal Medicine Work Phone: 03-31-2013 11:15-0400 BP Diastolic 60 mm[Hg] Mirella Mccracken [facility] Internal Medicine Work Phone: Comment on above: Patient Position: Sitting; Cuff Location : Left Arm; Cuff Size: Large 03-31-2013 11:15-0400 BP Systolic 118 mm[Hg] Mirella Mccracken [facility] Internal Medicine Work Phone: Comment on above: Patient Position: Sitting; Cuff Location : Left Arm; Cuff Size: Large 03-31-2013 11:15-0400 BSA (Body Surface Area) 1.69 m2 Mirella Mccracken [facility] Internal Medicine Work Phone: 03-31-2013 11:15-0400 Height 149.86 cm Mirella Mccracken [facility] Internal Medicine Work Phone: 03-31-2013 11:15-0400 Pulse (Heart Rate) 60 /min Mirella Mccracken [facility] Internal Medicine Work Phone: Comment on above: Pattern: Regular 03-31-2013 11:15-0400 Respiratory Rate 20 /min Mirella Mccracken [facility] Internal Medicine Work Phone: Comment on above: Pattern: Unlabored 03-31-2013 11:15-0400 Weight 74.02 kg Mirella Mccracken [facility] Internal Medicine Work Phone: 02-28-2013 09:53-0400 BMI (Body Mass Index) 32.57 kg/m2 Mirella Mccracken [facility] Internal Medicine Work Phone: 02-28-2013 09:53-0400 Body Temperature 98.3 [degF] Mirella Mccracken [facility] Internal Medicine Work Phone: Comment on above: Method: Oral 02-28-2013 09:53-0400 Body weight 73.14 kg Mirella Mccracken [facility] Internal Medicine Work Phone: 02-28-2013 09:53-0400 BP Diastolic 62 mm[Hg] Mirella Mccracken [facility] Internal Medicine Work Phone: Comment on above: Patient Position: Sitting; Cuff Location : Left Arm; Cuff Size: Large 02-28-2013 09:53-0400 BP Systolic 120 mm[Hg] Mirella Mccracken [facility] Internal Medicine Work Phone: Comment on above: Patient Position: Sitting; Cuff Location : Left Arm; Cuff Size: Large 02-28-2013 09:53-0400 BSA (Body Surface Area) 1.68 m2 Mirella Mccracken [facility] Internal Medicine Work Phone: 02-28-2013 09:53-0400 Height 149.86 cm Mirella Mccracken [facility] Internal Medicine Work Phone: 02-28-2013 09:53-0400 Pulse (Heart Rate) 60 /min Mirella Mccracken [facility] Internal Medicine Work Phone: Comment on above: Pattern: Regular 02-28-2013 09:53-0400 Respiratory Rate 18 /min Mirella Mccracken [facility] Internal Medicine Work Phone: Comment on above: Pattern: Unlabored 02-28-2013 09:53-0400 Weight 73.14 kg Mirella Mccracken [facility] Internal Medicine Work Phone: 11-15-2012 14:01-0500 BMI (Body Mass Index) 32.57 kg/m2 Mirella Mccracken [facility] Internal Medicine Work Phone: 11-15-2012 14:01-0500 Body Temperature 97.9 [degF] Mirella Mccracken [facility] Internal Medicine Work Phone: Comment on above: Method: Oral 11-15-2012 14:01-0500 Body weight 73.14 kg Mirella Mccracken [facility] Internal Medicine Work Phone: 11-15-2012 14:01-0500 BP Diastolic 78 mm[Hg] [facility] Work [facility]: Comment on above: Patient Position: Sitting; Cuff Location : Left Arm; Cuff Size: Large 11-15-2012 14:01-0500 BP Systolic 122 mm[Hg] Mirella Mccracken [facility] Internal Medicine Work Phone: Comment on above: Patient Position: Sitting; Cuff Location : Left Arm; Cuff Size: Large 11-15-2012 14:01-0500 BSA (Body Surface Area) 1.68 m2 Mirella Mccracken [facility] Internal Medicine Work Phone: 11-15-2012 14:01-0500 Height 149.86 [facility] Work Phone: 11-15-2012 14:01-0500 Pulse (Heart Rate) 72 /min Mirella Mccracken [facility] Internal Medicine Work Phone: Comment on above: Pattern: Regular 11-15-2012 14:01-0500 Respiratory Rate 20 /min Mirella Mccracken [facility] Internal Medicine Work Phone: Comment on above: Pattern: Unlabored 11-15-2012 14:01-0500 Weight 73.14 kg Mirella Mccracken [facility] Internal Medicine Work Phone: 10-25-2012 11:26-0500 BMI (Body Mass Index) 32.74 kg/m2 Mirella Mccracken [facility] Internal Medicine Work Phone: 10-25-2012 11:26-0500 Body Temperature 98.3 [degF] Mirella Mccracken [facility] Internal Medicine Work Phone: Comment on above: Method: Oral 10-25-2012 11:26-0500 Body weight 73.54 kg Mirella Mccracken [facility] Internal Medicine Work Phone: 10-25-2012 11:26-0500 BP Diastolic 62 mm[Hg] Mirella Mccracken [facility] Internal Medicine Work Phone: Comment on above: Patient Position: Sitting; Cuff Location : Right Arm; Cuff Size: Large 10-25-2012 11:26-0500 BP Systolic 144 mm[Hg] Mirella Mccracken [facility] Internal Medicine Work Phone: Comment on above: Patient Position: Sitting; Cuff Location : Right Arm; Cuff Size: Large 10-25-2012 11:26-0500 BSA (Body Surface Area) 1.69 m2 Mirella Mccracken [facility] Internal Medicine Work Phone: 10-25-2012 11:26-0500 Height 149.86 cm Mirella Mccracken [facility] Internal Medicine Work Phone: 10-25-2012 11:26-0500 Pulse (Heart Rate) 72 /min Mirella Mccracken [facility] Internal Medicine Work Phone: Comment on above: Pattern: Regular 10-25-2012 11:26-0500 Respiratory Rate 20 /min Mirella Mccracken [facility] Internal Medicine Work Phone: Comment on above: Pattern: Unlabored 10-25-2012 11:26-0500 Weight 73.54 kg Mirella Mccracken [facility] Internal Medicine Work Phone: 10-21-2012 09:46-0500 BMI (Body Mass Index) 32.74 kg/m2 Mirella Mccracken [facility] Internal Medicine Work Phone: 10-21-2012 09:46-0500 Body Temperature 97.6 [degF] Mirella Mccracken [facility] Internal Medicine Work Phone: Comment on above: Method: Oral 10-21-2012 09:46-0500 Body weight 73.54 kg Mirella Mccracken [facility] Internal Medicine Work Phone: 10-21-2012 09:46-0500 BP Diastolic 62 mm[Hg] Mirella Mccracken [facility] Internal Medicine Work Phone: Comment on above: Patient Position: Sitting; Cuff Location : Left Arm; Cuff Size: Large 10-21-2012 09:46-0500 BP Systolic 120 mm[Hg] Mirella Mccracken [facility] Internal Medicine Work Phone: Comment on above: Patient Position: Sitting; Cuff Location : Left Arm; Cuff Size: Large 10-21-2012 09:46-0500 BSA (Body Surface Area) 1.69 m2 Mirella Mccracken [facility] Internal Medicine Work Phone: 10-21-2012 09:46-0500 Height 149.86 cm Mirella Mccracken [facility] Internal Medicine Work Phone: 10-21-2012 09:46-0500 Pulse (Heart Rate) 64 /min Mirella Mccracken [facility] Internal Medicine Work Phone: Comment on above: Pattern: Regular 10-21-2012 09:46-0500 Respiratory Rate 20 /min Mirella Mccracken [facility] Internal Medicine Work Phone: Comment on above: Pattern: Unlabored 10-21-2012 09:46-0500 Weight 73.54 kg Mirella Mccracken [facility] Internal Medicine Work Phone: 09-30-2012 09:48-0500 BMI (Body Mass Index) 32.74 kg/m2 Mirella Mccracken [facility] Internal Medicine Work Phone: 09-30-2012 09:48-0500 Body Temperature 98.2 [degF] Mirella Mccracken [facility] Internal Medicine Work Phone: Comment on above: Method: Oral 09-30-2012 09:48-0500 Body weight 73.54 kg Mirella Mccracken [facility] Internal Medicine Work Phone: 09-30-2012 09:48-0500 BP Diastolic 76 mm[Hg] Mirella Mccracken [facility] Internal Medicine Work Phone: Comment on above: Patient Position: Sitting; Cuff Location : Left Arm; Cuff Size: Standard 09-30-2012 09:48-0500 BP Systolic 122 mm[Hg] Mirella Mccracken [facility] Internal Medicine Work Phone: Comment on above: Patient Position: Sitting; Cuff Location : Left Arm; Cuff Size: Standard 09-30-2012 09:48-0500 BSA (Body Surface Area) 1.69 m2 Mirella Mccracken [facility] Internal Medicine Work Phone: 09-30-2012 09:48-0500 Height 149.86 cm Mirella Mccracken [facility] Internal Medicine Work Phone: 09-30-2012 09:48-0500 Pulse (Heart Rate) 58 /min Mirella Mccracken [facility] Internal Medicine Work Phone: Comment on above: Pattern: Regular 09-30-2012 09:48-0500 Pulse Oximetry 98 % Mirella Mccracken [facility] Internal Medicine Work Phone: Comment on above: Room air 09-30-2012 09:48-0500 Respiratory Rate 16 /min Mirella Mccracken [facility] Internal Medicine Work Phone: Comment on above: Pattern: Unlabored 09-30-2012 09:48-0500 Weight 73.54 kg Mirella Mccracken [facility] Internal Medicine Work Phone: 09-16-2012 09:47-0500 BMI (Body Mass Index) 32.74 kg/m2 Mirella [facility] Internal Medicine Work Phone: 09-16-2012 09:47-0500 Body Temperature 97 [degF] Mirella Mccracken [facility] Internal Medicine Work Phone: Comment on above: Method: Oral 09-16-2012 09:47-0500 Body weight 73.54 kg Mirella Mccracken [facility] Internal Medicine Work Phone: 09-16-2012 09:47-0500 BP Diastolic 76 mm[Hg] Mirella Mccracken [facility] Internal Medicine Work Phone: Comment on above: Patient Position: Sitting; Cuff Location : Left Arm; Cuff Size: Large 09-16-2012 09:47-0500 BP Systolic 128 mm[Hg] Mirella Mccracken [facility] Internal Medicine Work Phone: Comment on above: Patient Position: Sitting; Cuff Location : Left Arm; Cuff Size: Large 09-16-2012 09:47-0500 BSA (Body Surface Area) 1.69 m2 Mirella Mccracken [facility] Internal Medicine Work Phone: 09-16-2012 09:47-0500 Height 149.86 cm Mirella Mccracken [facility] Internal Medicine Work Phone: 09-16-2012 09:47-0500 Pulse (Heart Rate) 72 /min Mirella Mccracken [facility] Internal Medicine Work Phone: Comment on above: Pattern: Regular 09-16-2012 09:47-0500 Respiratory Rate 18 /min Mirella Mccracken [facility] Internal Medicine Work Phone: Comment on above: Pattern: Unlabored 09-16-2012 09:47-0500 Weight 73.54 kg Mirella Mccracken [facility] Internal Medicine Work Phone: 05-27-2012 09:32-0400 Body Temperature 96.9 [degF] [facility] Work Phone: 03-11-2012 13:42-0400 BMI (Body Mass Index) 28.88 kg/m2 Mirella Solano [facility] Internal Medicine Work Phone: 03-11-2012 13:42-0400 Body Temperature 97.8 [degF] Mirella Mccracken [facility] Internal Medicine Work Phone: 03-11-2012 13:42-0400 Body weight 64.86 kg Mirella Mccracken [facility] Internal Medicine Work Phone: 03-11-2012 13:42-0400 BP Diastolic 70 mm[Hg] Mirella Mccracken [facility] Internal Medicine Work Phone: Comment on above: Patient Position: Sitting; Cuff Location : Left Arm; Cuff Size: Large 03-11-2012 13:42-0400 BP Systolic 124 mm[Hg] Mirella Mccracken [facility] Internal Medicine Work Phone: Comment on above: Patient Position: Sitting; Cuff Location : Left Arm; Cuff Size: Large 03-11-2012 13:42-0400 BSA (Body Surface Area) 1.6 m2 Mirella Mccracken [facility] Internal Medicine Work Phone: 03-11-2012 13:42-0400 Height 149.86 cm Mirella Mccracken [facility] Internal Medicine Work Phone: 03-11-2012 13:42-0400 Pulse (Heart Rate) 56 /min Mirella Mccracken [facility] Internal Medicine Work Phone: Comment on above: Pattern: Regular 03-11-2012 13:42-0400 Respiratory Rate 18 /min Mirella Mccracken [facility] Internal Medicine Work Phone: Comment on above: Pattern: Unlabored 03-11-2012 13:42-0400 Weight 64.86 kg Mirella Mccracken [facility] Internal Medicine Work Phone: 03-04-2012 12:12-0400 BMI (Body Mass Index) 28.96 kg/m2 Mirella Mccracken [facility] Internal Medicine Work Phone: 03-04-2012 12:12-0400 Body weight 65.03 kg Mirella Mccracken [facility] Internal Medicine Work Phone: 03-04-2012 12:12-0400 BP Diastolic 62 mm[Hg] Mirella Mccracken [facility] Internal Medicine Work Phone: Comment on above: Patient Position: Sitting; Cuff Location : Left Arm; Cuff Size: Large 03-04-2012 12:12-0400 BP Systolic 122 mm[Hg] Mirella Mccracken [facility] Internal Medicine Work Phone: Comment on above: Patient Position: Sitting; Cuff Location : Left Arm; Cuff Size: Large 03-04-2012 12:12-0400 BSA (Body Surface Area) 1.6 m2 Mirella Mccracken [facility] Internal Medicine Work Phone: 03-04-2012 12:12-0400 Height 149.86 cm Mirella Mccracken [facility] Internal Medicine Work Phone: 03-04-2012 12:12-0400 Pulse (Heart Rate) 60 /min Mirella Mccracken [facility] Internal Medicine Work Phone: Comment on above: Pattern: Regular 03-04-2012 12:12-0400 Respiratory Rate 20 /min Mirella Mccracken [facility] Internal Medicine Work Phone: Comment on above: Pattern: Unlabored 03-04-2012 12:12-0400 Weight 65.03 kg Mirella Mccracken [facility] Internal Medicine Work Phone: 02-25-2012 13:29-0400 BMI (Body Mass Index) 28.96 kg/m2 Mirella Mccracken [facility] Internal Medicine Work Phone: 02-25-2012 13:29-0400 Body weight 65.03 kg Mirella Mccracken [facility] Internal Medicine Work Phone: 02-25-2012 13:29-0400 BP Diastolic 76 mm[Hg] Mirella Mccracken [facility] Internal Medicine Work Phone: Comment on above: Patient Position: Sitting; Cuff Location : Left Arm; Cuff Size: Standard 02-25-2012 13:29-0400 BP Systolic 120 mm[Hg] Mirella Mccracken [facility] Internal Medicine Work Phone: Comment on above: Patient Position: Sitting; Cuff Location : Left Arm; Cuff Size: Standard 02-25-2012 13:29-0400 BSA (Body Surface Area) 1.6 m2 Mirella Mccracken [facility] Internal Medicine Work Phone: 02-25-2012 13:29-0400 Height 149.86 cm Mirella Mccracken [facility] Internal Medicine Work Phone: 02-25-2012 13:29-0400 Pulse (Heart Rate) 68 /min Mirella Mccracken [facility] Internal Medicine Work Phone: Comment on above: Pattern: Regular 02-25-2012 13:29-0400 Respiratory Rate 20 /min Mirella Mccracken [facility] Internal Medicine Work Phone: Comment on above: Pattern: Unlabored 02-25-2012 13:29-0400 Weight 65.03 kg Mirella Mccracken [facility] Internal Medicine Work Phone: 01-30-2012 08:19-0400 BMI (Body Mass Index) 28.96 kg/m2 Mirella Mccracken [facility] Internal Medicine Work Phone: 01-30-2012 08:19-0400 Body weight 65.03 kg Mirella Mccracken [facility] Internal Medicine Work Phone: 01-30-2012 08:19-0400 BP Diastolic 70 mm[Hg] Mirella Mccracken [facility] Internal Medicine Work Phone: Comment on above: Patient Position: Sitting; Cuff Location : Left Arm; Cuff Size: Large 01-30-2012 08:19-0400 BP Systolic 120 mm[Hg] Mirella Mccracken [facility] Internal Medicine Work Phone: Comment on above: Patient Position: Sitting; Cuff Location : Left Arm; Cuff Size: Large 01-30-2012 08:19-0400 BSA (Body Surface Area) 1.6 m2 Mirella Mccracken [facility] Internal Medicine Work Phone: 01-30-2012 08:19-0400 Height 149.86 cm Mirella Mccracken [facility] Internal Medicine Work Phone: 01-30-2012 08:19-0400 Pulse (Heart Rate) 60 /min Mirella Mccracken [facility] Internal Medicine Work Phone: Comment on above: Pattern: Regular 01-30-2012 08:19-0400 Respiratory Rate 18 /min Mirella [facility] Internal Medicine Work Phone: Comment on above: Pattern: Unlabored 01-30-2012 08:19-0400 Weight 65.03 kg Mirella Mccracken [facility] Medicine Work Phone: 01-15-2012 12:06-0400 BMI (Body Mass Index) 28.96 kg/m2 Mirella Mccracken [facility] Internal Medicine Work Phone: Comment on above: vison with correction ou=20/50 os=20/50 od=20/50hearing [facility] 01-15-2012 12:06-0400 Body Temperature 97 [degF] [facility] Work [facility]: Comment on above: Method: Oral vison with correctio n ou=20/50 os=20/50 od=20/50hearing [facility] 01-15-2012 12:06-0400 Body weight 65.03 kg [facility] Work Phone: Comment on above: vison with correction ou=20/50 os=20/50 od=20/50hearing [facility] 01-15-2012 12:06-0400 BP Diastolic 60 mm[Hg] Mirella [facility] Medicine Work Phone: Comment on above: Patient Position: Sitting; Cuff Location : Left Arm; Cuff Size: Large vison with correctio n ou=20/50 os=20/50 od=20/50hearing [facility] 01-15-2012 12:06-0400 BP Systolic 118 mm[Hg] Mirella [facility] Internal Medicine Work Phone: Comment on above: Patient Position: Sitting; Cuff Location : Left Arm; Cuff Size: Large vison with correctio n ou=20/50 os=20/50 od=20/50hearing [facility] 01-15-2012 12:06-0400 BSA (Body Surface Area) 1.6 m2 [facility] Internal Medicine Work Phone: Comment on above: vison with correction ou=20/50 os=20/50 od=20/50hearing [facility] 01-15-2012 12:06-0400 Height 149.86 cm Mirella Mccracken [facility] Internal Medicine Work Phone: Comment on above: vison with correction ou=20/50 os=20/50 od=20/50hearing [facility] 01-15-2012 12:06-0400 Pulse (Heart Rate) 68 /min Mirella Mccracken [facility] Internal Medicine Work Phone: Comment on above: Pattern: Regular vison with correctio n ou=20/50 os=20/50 od=20/50hearing [facility] 01-15-2012 12:06-0400 Respiratory Rate 20 /min [facility] Work Phone: Comment on above: Pattern: Unlabored vison with correctio n ou=20/50 os=20/50 od=20/50hearing [facility] 01-15-2012 12:06-0400 Weight 65.03 kg [facility] Work Phone: Comment on above: vison with correction ou=20/50 os=20/50 od=20/50hearing [facility] 12-31-2011 15:05-0400 BMI (Body Mass Index) 28.88 kg/m2 Mirella Mccracken [facility] Internal Medicine Work Phone: 12-31-2011 15:05-0400 Body weight 64.86 kg Mirella Mccracken [facility] Internal Medicine Work Phone: 12-31-2011 15:05-0400 BP Diastolic 78 mm[Hg] [facility] Work Phone: Comment on above: Patient Position: Sitting; Cuff Location : Left Arm; Cuff Size: Large 12-31-2011 15:05-0400 BP Systolic 122 mm[Hg] [facility] Work Phone: Comment on above: Patient Position: Sitting; Cuff Location : Left Arm; Cuff Size: Large 12-31-2011 15:05-0400 BSA (Body Surface Area) 1.6 m2 Mirella Mccracken [facility] Internal Medicine Work Phone: 12-31-2011 15:05-0400 Height 149.86 cm Mirella Mccracken [facility] Internal Medicine Work Phone: 12-31-2011 15:05-0400 Pulse (Heart Rate) 60 /min Mirella Mccracken [facility] Internal Medicine Work Phone: Comment on above: Pattern: Regular 12-31-2011 15:05-0400 Respiratory Rate 18 /min Mirella Mccracken [facility] Internal Medicine Work Phone: Comment on above: Pattern: Unlabored 12-31-2011 15:05-0400 Weight 64.86 kg Mirella Mccracken [facility] Internal Medicine Work Phone: 12-26-2011 14:17-0400 BP Diastolic 62 mm[Hg] Mirella Mccracken [facility] Internal Medicine Work Phone: Comment on above: Patient Position: Sitting; Cuff Location : Left Arm; Cuff Size: Standard 12-26-2011 14:17-0400 BP Systolic 122 mm[Hg] Mirella Mccracken [facility] Internal Medicine Work Phone: Comment on above: Patient Position: Sitting; Cuff Location : Left Arm; Cuff Size: Standard 12-26-2011 14:17-0400 Pulse (Heart Rate) 58 /min Mirella Mccracken [facility] Internal Medicine Work Phone: Comment on above: Pattern: Regular 12-26-2011 14:17-0400 Pulse Oximetry 98 % Mirella Mccracken [facility] Internal Medicine Work Phone: Comment on above: Room air 12-26-2011 13:59-0400 Pulse (Heart Rate) 48 /min Mirella Mccracken [facility] Internal Medicine Work Phone: Comment on above: Pattern: Regular 12-26-2011 13:59-0400 Pulse Oximetry 95 % Mirella Mccracken [facility] Internal Medicine Work Phone: Comment on above: Room air 12-26-2011 13:13-0400 BMI (Body Mass Index) 29.49 kg/m2 Mirella Mccracken [facility] Internal Medicine Work Phone: 12-26-2011 13:13-0400 Body Temperature 97.8 [degF] Mirella Mccracken [facility] Internal Medicine Work Phone: Comment on above: Method: Oral 12-26-2011 13:130400 Body weight 66.23 kg Mirella Mccracken [facility] Internal Medicine Work Phone: 12-26-2011 13:13-0400 BP Diastolic 68 mm[Hg] Mirella Mccracken [facility] Internal Medicine Work Phone: Comment on above: Patient Position: Sitting; Cuff Location : Left Arm; Cuff Size: Standard 12-26-2011 13:13-0400 BP Systolic 114 mm[Hg] Mirella Mccracken [facility] Internal Medicine Work Phone: Comment on above: Patient Position: Sitting; Cuff Location : Left Arm; Cuff Size: Standard 12-26-2011 13:13-0400 BSA (Body Surface Area) 1.61 m2 Mirella Mccracken [facility] Internal Medicine Work Phone: 12-26-2011 13:13-0400 Height 149.86 cm Mirella Mccracken [facility] Internal Medicine Work Phone: 12-26-2011 13:13-0400 Pulse (Heart Rate) 54 /min Mirella Mccracken [facility] Internal Medicine Work Phone: Comment on above: Pattern: Regular 12-26-2011 13:13-0400 Pulse Oximetry 98 % Mirella Mccracken [facility] Internal Medicine Work Phone: Comment on above: Room air 12-26-2011 13:13-0400 Respiratory Rate 20 /min Mirella Mccracken [facility] Internal Medicine Work Phone: Comment on above: Pattern: Unlabored 12-26-2011 13:13-0400 Weight 66.23 kg Mirella Mccracken [facility] Internal Medicine Work Phone: 12-24-2011 14:07-0400 BMI (Body Mass Index) 29.5 kg/m2 Mirella Mccracken [facility] Internal Medicine Work Phone: 12-24-2011 14:07-0400 Body weight 66.25 kg Mirella Mccracken [facility] Internal Medicine Work Phone: 12-24-2011 14:07-0400 BP Diastolic 60 mm[Hg] Mirella Mccracken [facility] Internal Medicine Work Phone: Comment on above: Patient Position: Sitting; Cuff Location : Left Arm; Cuff Size: Large 12-24-2011 14:07-0400 BP Systolic 124 mm[Hg] Mirella Mccracken [facility] Internal Medicine Work Phone: Comment on above: Patient Position: Sitting; Cuff Location : Left Arm; Cuff Size: Large 12-24-2011 14:07-0400 BSA (Body Surface Area) 1.61 m2 Mirella Mccracken [facility] Internal Medicine Work Phone: 12-24-2011 14:07-0400 Height 149.86 cm Mirella Mccracken [facility] Internal Medicine Work Phone: 12-24-2011 14:07-0400 Pulse (Heart Rate) 60 /min Mirella Mccracken [facility] Internal Medicine Work Phone: Comment on above: Pattern: Regular 12-24-2011 14:07-0400 Respiratory Rate 18 /min Mirella Mccracken [facility] Internal Medicine Work Phone: Comment on above: Pattern: Unlabored 12-24-2011 14:07-0400 Weight 66.25 kg Mirella Mccracken [facility] Internal Medicine Work Phone: 12-15-2011 09:30-0400 BMI (Body Mass Index) 29.31 kg/m2 Mirella Mccracken [facility] Internal Medicine Work Phone: 12-15-2011 09:30-0400 Body Temperature 97.9 [degF] Mirella Mccracken [facility] Internal Medicine Work Phone: Comment on above: Method: Oral 12-15-2011 09:30-0400 Body weight 65.83 kg Mirella Mccracken [facility] Internal Medicine Work Phone: 12-15-2011 09:30-0400 BP Diastolic 60 mm[Hg] [facility] Work Phone: Comment on above: Patient Position: Sitting; Cuff Location : Left Arm; Cuff Size: Large 12-15-2011 09:30-0400 BP Systolic 104 mm[Hg] [facility] Work Phone: Comment on above: Patient Position: Sitting; Cuff Location : Left Arm; Cuff Size: Large 12-15-2011 09:30-0400 BSA (Body Surface Area) 1.61 m2 Mirella Mccracken [facility] Internal Medicine Work Phone: 12-15-2011 09:30-0400 Height 149.86 cm Mirella Mccracken [facility] Internal Medicine Work Phone: 12-15-2011 09:30-0400 Pulse (Heart Rate) 60 /min Mirella Mccracken [facility] Internal Medicine Work Phone: Comment on above: Pattern: Regular 12-15-2011 09:30-0400 Respiratory Rate 18 /min Mirella Mccracken [facility] Internal Medicine Work Phone: Comment on above: Pattern: Unlabored 12-15-2011 09:30-0400 Weight 65.83 kg Mirella Mccracken [facility] Internal Medicine Work Phone: 11-26-2011 11:36-0400 BMI (Body Mass Index) 29.69 kg/m2 Mirella Mccracken [facility] Internal Medicine Work Phone: 11-26-2011 11:36-0400 Body Temperature 95.6 [degF] Mirella Mccracken [facility] Internal Medicine Work Phone: Comment on above: Method: Oral 11-26-2011 11:36-0400 Body weight 66.68 kg Mirella Mccracken [facility] Internal Medicine Work Phone: 11-26-2011 11:36-0400 BP Diastolic 62 mm[Hg] Mirella Mccracken [facility] Internal Medicine Work Phone: Comment on above: Patient Position: Sitting; Cuff Location : Left Arm; Cuff Size: Large 11-26-2011 11:36-0400 BP Systolic 118 mm[Hg] Mirella Mccracken [facility] Internal Medicine Work Phone: Comment on above: Patient Position: Sitting; Cuff Location : Left Arm; Cuff Size: Large 11-26-2011 11:36-0400 BSA (Body Surface Area) 1.62 m2 Mirella Mccracken [facility] Internal Medicine Work Phone: 11-26-2011 11:36-0400 Height 149.86 cm Mirella Mccracken [facility] Internal Medicine Work Phone: 11-26-2011 11:36-0400 Pulse (Heart Rate) 64 /min Mirella Mccracken [facility] Internal Medicine Work Phone: Comment on above: Pattern: Regular 11-26-2011 11:36-0400 Respiratory Rate 20 /min Mirella Mccracken [facility] Internal Medicine Work Phone: Comment on above: Pattern: Unlabored 11-26-2011 11:36-0400 Weight 66.68 kg Mirella Mccracken [facility] Internal Medicine Work Phone: 11-12-2011 12:55-0500 BMI (Body Mass Index) 30.51 kg/m2 Mirella Mccracken [facility] Internal Medicine Work Phone: 11-12-2011 12:55-0500 Body weight 68.52 kg Mirella Mccracken [facility] Internal Medicine Work Phone: 11-12-2011 12:55-0500 BP Diastolic 60 mm[Hg] Mirella Mccracken [facility] Internal Medicine Work Phone: Comment on above: Patient Position: Sitting; Cuff Location : Left Arm; Cuff Size: Large 11-12-2011 12:55-0500 BP Systolic 112 mm[Hg] Mirella Mccracken [facility] Internal Medicine Work Phone: Comment on above: Patient Position: Sitting; Cuff Location : Left Arm; Cuff Size: Large 11-12-2011 12:55-0500 BSA (Body Surface Area) 1.64 m2 Mirella Mccracken [facility] Internal Medicine Work Phone: 11-12-2011 12:55-0500 Height 149.86 cm Mirella Mccracken [facility] Internal Medicine Work Phone: 11-12-2011 12:55-0500 Pulse (Heart Rate) 68 /min Mirella Mccracken [facility] Internal Medicine Work Phone: Comment on above: Pattern: Regular 11-12-2011 12:55-0500 Respiratory Rate 20 /min Mirella Mccracken [facility] Internal Medicine Work Phone: Comment on above: Pattern: Unlabored 11-12-2011 12:55-0500 Weight 68.52 kg Mirella Mccracken [facility] Internal Medicine Work Phone: 11-06-2011 12:18-0500 BMI (Body Mass Index) 30.09 kg/m2 Mirella Mccracken [facility] Internal Medicine Work Phone: 11-06-2011 12:18-0500 Body Temperature 98.1 [degF] Mirella Mccracken [facility] Internal Medicine Work Phone: Comment on above: Method: Oral 11-06-2011 12:18-0500 Body weight 67.59 kg Mirella Mccracken [facility] Internal Medicine Work Phone: 11-06-2011 12:18-0500 BP Diastolic 70 mm[Hg] Mirella Mccracken [facility] Internal Medicine Work Phone: Comment on above: Patient Position: Sitting; Cuff Location : Left Arm; Cuff Size: Large 11-06-2011 12:18-0500 BP Systolic 134 mm[Hg] Mirella Mccracken [facility] Internal Medicine Work Phone: Comment on above: Patient Position: Sitting; Cuff Location : Left Arm; Cuff Size: Large 11-06-2011 12:18-0500 BSA (Body Surface Area) 1.63 m2 Mirella Mccracken [facility] Internal Medicine Work Phone: 11-06-2011 12:18-0500 Height 149.86 cm Mirella Mccracken [facility] Internal Medicine Work Phone: 11-06-2011 12:18-0500 Pulse (Heart Rate) 68 /min Mirella Mccracken [facility] Internal Medicine Work Phone: Comment on above: Pattern: Regular 11-06-2011 12:18-0500 Respiratory Rate 20 /min Mirella Mccracken [facility] Internal Medicine Work Phone: Comment on above: Pattern: Unlabored 11-06-2011 12:18-0500 Weight 67.59 kg Mirella Mccracken [facility] Internal Medicine Work Phone: 10-21-2011 13:27-0500 Body Temperature 97.9 [degF] Mirella Mccracken [facility] Internal Medicine Work Phone: 10-21-2011 13:27-0500 Body weight 67.54 kg Mirella Mccracken [facility] Internal Medicine Work Phone: 10-21-2011 13:27-0500 BP Diastolic 92 mm[Hg] Mirella Mccracken [facility] Internal Medicine Work Phone: Comment on above: Patient Position: Sitting; Cuff Location : Left Arm; Cuff Size: Standard 10-21-2011 13:27-0500 BP Systolic 152 mm[Hg] Mirella Mccracken [facility] Internal Medicine Work Phone: Comment on above: Patient Position: Sitting; Cuff Location : Left Arm; Cuff Size: Standard 10-21-2011 13:27-0500 Pulse (Heart Rate) 99 /min Mirella Mccracken [facility] Internal Medicine Work Phone: Comment on above: Pattern: Regular 10-21-2011 13:27-0500 Pulse Oximetry 92 % Mirella Mccracken [facility] Internal Medicine Work Phone: Comment on above: Room air 10-21-2011 13:27-0500 Respiratory Rate 17 /min Mirella Mccracken [facility] Internal Medicine Work Phone: Comment on above: Pattern: Unlabored 10-21-2011 13:27-0500 Weight 67.54 kg Mirella Mccracken [facility] Internal Medicine Work Phone: 06-05-2011 09:34-0400 BMI (Body Mass Index) 30.14 kg/m2 Mirella Mccracken [facility] Internal Medicine Work Phone: 06-05-2011 09:34-0400 Body Temperature 98.5 [degF] Mirella Mccracken [facility] Internal Medicine Work Phone: Comment on above: Method: Oral 06-05-2011 09:34-0400 Body weight 67.7 kg Mirella Mccracken [facility] Internal Medicine Work Phone: 06-05-2011 09:34-0400 BP Diastolic 78 mm[Hg] Mirella Mccracken [facility] Internal Medicine Work Phone: Comment on above: Patient Position: Sitting; Cuff Location : Left Arm; Cuff Size: Large 06-05-2011 09:34-0400 BP Systolic 142 mm[Hg] Mirella Mccracken [facility] Internal Medicine Work Phone: Comment on above: Patient Position: Sitting; Cuff Location : Left Arm; Cuff Size: Large 06-05-2011 09:34-0400 BSA (Body Surface Area) 1.63 m2 Mirella Mccracken [facility] Internal Medicine Work Phone: 06-05-2011 09:34-0400 Height 149.86 cm Mirella Mccracken [facility] Internal Medicine Work Phone: 06-05-2011 09:34-0400 Pulse (Heart Rate) 76 /min Mirella Mccracken [facility] Internal Medicine Work Phone: Comment on above: Pattern: Regular 06-05-2011 09:34-0400 Respiratory Rate 20 /min Mirella Mccracken [facility] Internal Medicine Work Phone: Comment on above: Pattern: Unlabored 06-05-2011 09:34-0400 Weight 67.7 kg Mirella Mccracken [facility] Internal Medicine Work Phone: 05-08-2011 08:10-0400 BMI (Body Mass Index) 28.19 kg/m2 Mirella Mccracken [facility] Internal Medicine Work Phone: 05-08-2011 08:10-0400 Body Temperature 98.7 [degF] Mirella Mccracken [facility] Internal Medicine Work Phone: Comment on above: Method: Oral 05-08-2011 08:10-0400 Body weight 63.31 kg Mirella Mccracken [facility] Internal Medicine Work Phone: 05-08-2011 08:10-0400 BP Diastolic 78 mm[Hg] Mirella Mccracken [facility] Internal Medicine Work Phone: Comment on above: Patient Position: Sitting; Cuff Location : Left Arm; Cuff Size: Standard 05-08-2011 08:10-0400 BP Systolic 142 mm[Hg] Mirella Mccracken [facility] Internal Medicine Work Phone: Comment on above: Patient Position: Sitting; Cuff Location : Left Arm; Cuff Size: Standard 05-08-2011 08:10-0400 BSA (Body Surface Area) 1.58 m2 Mirella Mccracken [facility] Internal Medicine Work Phone: 05-08-2011 08:10-0400 Height 149.86 cm Mirella Mccracken [facility] Internal Medicine Work Phone: 05-08-2011 08:10-0400 Pulse (Heart Rate) 84 /min Mirella Mccracken [facility] Internal Medicine Work Phone: Comment on above: Pattern: Regular 05-08-2011 08:10-0400 Respiratory Rate 17 /min Mirella Mccracken [facility] Internal Medicine Work Phone: 05-08-2011 08:10-0400 Weight 63.31 kg Mirella Mccracken [facility] Internal Medicine Work Phone: 05-07-2011 08:42-0400 BMI (Body Mass Index) 28.19 kg/m2 Mirella Mccracken [facility] Internal Medicine Work Phone: 05-07-2011 08:42-0400 Body Temperature 98 [degF] Mirella Mccracken [facility] Internal Medicine Work Phone: Comment on above: Method: Oral 05-07-2011 08:42-0400 Body weight 63.31 kg Mirella Mccracken [facility] Internal Medicine Work Phone: 05-07-2011 08:42-0400 BP Diastolic 72 mm[Hg] Mirella Mccracken [facility] Internal Medicine Work Phone: Comment on above: Patient Position: Sitting; Cuff Location : Left Arm; Cuff Size: Standard 05-07-2011 08:42-0400 BP Systolic 132 mm[Hg] Mirella Mccracken [facility] Internal Medicine Work Phone: Comment on above: Patient Position: Sitting; Cuff Location : Left Arm; Cuff Size: Standard 05-07-2011 08:42-0400 BSA (Body Surface Area) 1.58 m2 Mirella Mccracken [facility] Internal Medicine Work Phone: 05-07-2011 08:42-0400 Height 149.86 cm Mirella Mccracken [facility] Internal Medicine Work Phone: 05-07-2011 08:42-0400 Pulse (Heart Rate) 82 /min Mirella Mccracken [facility] Internal Medicine Work Phone: Comment on above: Pattern: Regular 05-07-2011 08:42-0400 Respiratory Rate 18 /min Mirella Mccracken [facility] Internal Medicine Work Phone: Comment on above: Pattern: Unlabored 05-07-2011 08:42-0400 Weight 63.31 kg Mirella Mccracken [facility] Internal Medicine Work Phone: 05-06-2011 16:25-0400 BP Diastolic 82 mm[Hg] Mirella Mccracken [facility] Internal Medicine Work Phone: Comment on above: Patient Position: Supine; Cuff Location: Right Arm; Cuff Size: Standard 05-06-2011 16:25-0400 BP Systolic 146 mm[Hg] Mirella Mccracken [facility] Internal Medicine Work Phone: Comment on above: Patient Position: Supine; Cuff Location: Right Arm; Cuff Size: Standard 05-06-2011 16:25-0400 Pulse (Heart Rate) 76 /min Mirella Mccracken [facility] Internal Medicine Work Phone: Comment on above: Pattern: Regular 11-06-2010 12:10-0500 BMI (Body Mass Index) 28.19 kg/m2 Mirella Mccracken [facility] Internal Medicine Work Phone: 11-06-2010 12:10-0500 Body Temperature 97.3 [degF] Mirella Mccracken [facility] Internal Medicine Work Phone: Comment on above: Method: Oral 11-06-2010 12:10-0500 Body weight 63.31 kg Mirella Mccracken [facility] Internal Medicine Work Phone: 11-06-2010 12:10-0500 BP Diastolic 82 mm[Hg] Mirella Mccracken [facility] Internal Medicine Work Phone: Comment on above: Patient Position: Sitting; Cuff Location : Left Arm; Cuff Size: Standard 11-06-2010 12:10-0500 BP Systolic 144 mm[Hg] Mirella Mccracken [facility] Internal Medicine Work Phone: Comment on above: Patient Position: Sitting; Cuff Location : Left Arm; Cuff Size: Standard 11-06-2010 12:10-0500 BSA (Body Surface Area) 1.58 m2 Mirella Mccracken [facility] Internal Medicine Work Phone: 11-06-2010 12:10-0500 Height 149.86 cm Mirella Mccracken [facility] Internal Medicine Work Phone: 11-06-2010 12:10-0500 Pulse (Heart Rate) 76 /min Mirella Mccracken [facility] Internal Medicine Work Phone: Comment on above: Pattern: Regular 11-06-2010 12:10-0500 Respiratory Rate 18 /min Mirella Mccracken [facility] Internal Medicine Work Phone: Comment on above: Pattern: Unlabored 11-06-2010 12:10-0500 Weight 63.31 kg Mirella Mccracken [facility] Internal Medicine Work Phone: 11-04-2010 09:00-0500 BMI (Body Mass Index) 28.19 kg/m2 Mirella Mccracken [facility] Internal Medicine Work Phone: 11-04-2010 09:00-0500 Body weight 63.31 kg Mirella Mccracken [facility] Internal Medicine Work Phone: 11-04-2010 09:00-0500 BP Diastolic 72 mm[Hg] Mirella Mccracken [facility] Internal Medicine Work Phone: Comment on above: Patient Position: Sitting; Cuff Location : Left Arm; Cuff Size: Standard 11-04-2010 09:00-0500 BP Systolic 122 mm[Hg] [facility]: Comment on above: Patient Position: Sitting; Cuff Location : Left Arm; Cuff Size: Standard 11-04-2010 09:00-0500 BSA (Body Surface Area) 1.58 m2 Mirella Mccracken [facility] Internal Medicine Work Phone: 11-04-2010 09:00-0500 Height 149.86 cm [facility] Work Phone: 11-04-2010 09:00-0500 Pulse (Heart Rate) 62 /min Mirella Mccracken [facility] Internal Medicine Work Phone: Comment on above: Pattern: Regular 11-04-2010 09:00-0500 Respiratory Rate 16 /min Mirella Mccracken [facility] Internal Medicine Work Phone: Comment on above: Pattern: Unlabored 11-04-2010 09:00-0500 Weight 63.31 kg Mirella Mccracken [facility] Internal Medicine Work Phone: 10-14-2010 09:31-0500 BMI (Body Mass Index) 28.19 kg/m2 Mirella Mccracken [facility] Internal Medicine Work Phone: 10-14-2010 09:31-0500 Body weight 63.31 kg Mirella Mccracken [facility] Internal Medicine Work Phone: 10-14-2010 09:31-0500 BP Diastolic 70 mm[Hg] Mirella Mccracken [facility] Internal Medicine Work Phone: Comment on above: Patient Position: Sitting; Cuff Location : Left Arm; Cuff Size: Large 10-14-2010 09:31-0500 BP Systolic 132 mm[Hg] Mirella Mccracken [facility] Internal Medicine Work Phone: Comment on above: Patient Position: Sitting; Cuff Location : Left Arm; Cuff Size: Large 10-14-2010 09:31-0500 BSA (Body Surface Area) 1.58 m2 Mirella Mccracken [facility] Internal Medicine Work Phone: 10-14-2010 09:31-0500 Height 149.86 cm Mirella Mccracken [facility] Internal Medicine Work Phone: 10-14-2010 09:31-0500 Pulse (Heart Rate) 72 /min Mirella Mccracken [facility] Internal Medicine Work Phone: Comment on above: Pattern: Regular 10-14-2010 09:31-0500 Respiratory Rate 20 /min Mirella Mccracken [facility] Internal Medicine Work Phone: Comment on above: Pattern: Unlabored 10-14-2010 09:31-0500 Weight 63.31 kg Mirella Mccracken [facility] Internal Medicine Work Phone: 07-17-2010 08:52-0400 BMI (Body Mass Index) 29.73 kg/m2 Mirella [facility] Internal Medicine Work Phone: 07-17-2010 08:52-0400 Body weight 66.76 kg Mirella Mccracken [facility] Internal Medicine Work Phone: 07-17-2010 08:52-0400 BP Diastolic 78 mm[Hg] Mirella Mccracken [facility] Internal Medicine Work Phone: Comment on above: Patient Position: Sitting; Cuff Location : Left Arm; Cuff Size: Large 07-17-2010 08:52-0400 BP Systolic 138 mm[Hg] Mirella Mccracken [facility] Internal Medicine Work Phone: Comment on above: Patient Position: Sitting; Cuff Location : Left Arm; Cuff Size: Large 07-17-2010 08:52-0400 BSA (Body Surface Area) 1.62 m2 Mirella Mccracken [facility] Internal Medicine Work Phone: 07-17-2010 08:52-0400 Height 149.86 cm Mirella Mccracken [facility] Internal Medicine Work Phone: 07-17-2010 08:52-0400 Pulse (Heart Rate) 60 /min Mirella Mccracken [facility] Internal Medicine Work Phone: Comment on above: Pattern: Regular 07-17-2010 08:52-0400 Respiratory Rate 20 /min Mirella Mccracken [facility] Internal Medicine Work Phone: Comment on above: Pattern: Unlabored 07-17-2010 08:52-0400 Weight 66.76 kg Mirella Mccracken [facility] Internal Medicine Work Phone: 06-17-2010 10:04-0400 BMI (Body Mass Index) 29.6 kg/m2 Mirella [facility] Internal Medicine Work Phone: 06-17-2010 10:04-0400 Body weight 66.48 kg Mirella Mccracken [facility] Internal Medicine Work Phone: 06-17-2010 10:04-0400 BP Diastolic 70 mm[Hg] Mirella Mccracken [facility] Internal Medicine Work Phone: Comment on above: Patient Position: Sitting; Cuff Location : Left Arm; Cuff Size: Large 06-17-2010 10:04-0400 BP Systolic 122 mm[Hg] Mirella Mccracken [facility] Internal Medicine Work Phone: Comment on above: Patient Position: Sitting; Cuff Location : Left Arm; Cuff Size: Large 06-17-2010 10:04-0400 BSA (Body Surface Area) 1.62 m2 Mirella Mccracken [facility] Internal Medicine Work Phone: 06-17-2010 10:04-0400 Height 149.86 cm Mirella Mccracken [facility] Internal Medicine Work Phone: 06-17-2010 10:04-0400 Pulse (Heart Rate) 68 /min Mirella Mccracken [facility] Internal Medicine Work Phone: Comment on above: Pattern: Regular 06-17-2010 10:04-0400 Respiratory Rate 20 /min Mirella Mccracken [facility] Internal Medicine Work Phone: Comment on above: Pattern: Unlabored 06-17-2010 10:04-0400 Weight 66.48 kg Mirella Mccracken [facility] Internal Medicine Work Phone: 01-25-2010 13:25-0400 Body weight 66.91 kg Mirella Mccracken [facility] Internal Medicine Work Phone: 01-25-2010 13:25-0400 BP Diastolic 76 mm[Hg] Mirella Mccracken [facility] Internal Medicine Work Phone: Comment on above: Patient Position: Sitting; Cuff Location : Left Arm; Cuff Size: Standard 01-25-2010 13:25-0400 BP Systolic 132 mm[Hg] Mirella Mccracken [facility] Internal Medicine Work Phone: Comment on above: Patient Position: Sitting; Cuff Location : Left Arm; Cuff Size: Standard 01-25-2010 13:25-0400 Pulse (Heart Rate) 68 /min Mirella Mccracken [facility] Internal Medicine Work Phone: Comment on above: Pattern: Regular 01-25-2010 13:25-0400 Respiratory Rate 18 /min Mirella Mccracken [facility] Internal Medicine Work Phone: Comment on above: Pattern: Unlabored 01-25-2010 13:25-0400 Weight 66.91 kg Mirella Mccracken [facility] Internal Medicine Work Phone: 12-13-2009 11:12-0400 BMI (Body Mass Index) 29.32 kg/m2 Mirella Mccracken [facility] Internal Medicine Work Phone: 12-13-2009 11:12-0400 Body weight 65.86 kg Mirella Mccracken [facility] Internal Medicine Work Phone: 12-13-2009 11:12-0400 BP Diastolic 78 mm[Hg] Mirella Mccracken [facility] Internal Medicine Work Phone: Comment on above: Patient Position: Sitting; Cuff Location : Left Arm; Cuff Size: Large 12-13-2009 11:12-0400 BP Systolic 118 mm[Hg] Mirella Mccracken [facility] Internal Medicine Work Phone: Comment on above: Patient Position: Sitting; Cuff Location : Left Arm; Cuff Size: Large 12-13-2009 11:12-0400 BSA (Body Surface Area) 1.61 m2 Mirella Mccracken [facility] Internal Medicine Work Phone: 12-13-2009 11:12-0400 Height 149.86 cm Mirella Mccracken [facility] Internal Medicine Work Phone: 12-13-2009 11:12-0400 Pulse (Heart Rate) 64 /min Mirella Mccracken [facility] Internal Medicine Work Phone: Comment on above: Pattern: Regular 12-13-2009 11:12-0400 Respiratory Rate 20 /min Mirella Mccracken [facility] Internal Medicine Work Phone: Comment on above: Pattern: Unlabored 12-13-2009 11:12-0400 Weight 65.86 kg Mirella Mccracken [facility] Internal Medicine Work Phone: 10-03-2009 11:50-0500 BMI (Body Mass Index) 27.37 kg/m2 Mirella Mccracken [facility] Internal Medicine Work Phone: 10-03-2009 11:50-0500 Body weight 61.46 kg Mirella Mccracken [facility] Internal Medicine Work Phone: 10-03-2009 11:50-0500 BP Diastolic 78 mm[Hg] Mirella Mccracken [facility] Internal Medicine Work Phone: Comment on above: Patient Position: Sitting; Cuff Location : Left Arm; Cuff Size: Large 10-03-2009 11:50-0500 BP Systolic 120 mm[Hg] Mirella Mccracken [facility] Internal Medicine Work Phone: Comment on above: Patient Position: Sitting; Cuff Location : Left Arm; Cuff Size: Large 10-03-2009 11:50-0500 BSA (Body Surface Area) 1.56 m2 Mirella Mccracken [facility] Internal Medicine Work Phone: 10-03-2009 11:50-0500 Height 149.86 cm Mirella Mccracken [facility] Internal Medicine Work Phone: 10-03-2009 11:50-0500 Pulse (Heart Rate) 64 /min Mirella Mccracken [facility] Internal Medicine Work Phone: Comment on above: Pattern: Regular 10-03-2009 11:50-0500 Respiratory Rate 20 /min Mirella Mccracken [facility] Internal Medicine Work Phone: Comment on above: Pattern: Unlabored 10-03-2009 11:50-0500 Weight 61.46 kg Mirella Mccracken [facility] Internal Medicine Work Phone: 01-17-2009 07:54-0400 BMI (Body Mass Index) 27.37 kg/m2 Mirella Sol[facility] Internal Medicine Work Phone: 01-17-2009 07:54-0400 Body weight 61.46 kg Mirella Mccracken [facility] Internal Medicine Work Phone: 01-17-2009 07:54-0400 BP Diastolic 60 mm[Hg] Mirella Mccracken [facility] Internal Medicine Work Phone: Comment on above: Patient Position: Sitting; Cuff Location : Left Arm; Cuff Size: Large 01-17-2009 07:54-0400 BP Systolic 112 mm[Hg] Mirella Mccracken [facility] Internal Medicine Work Phone: Comment on above: Patient Position: Sitting; Cuff Location : Left Arm; Cuff Size: Large 01-17-2009 07:54-0400 BSA (Body Surface Area) 1.56 m2 Mirella Mccracken [facility] Internal Medicine Work Phone: 01-17-2009 07:54-0400 Head Circumference 0 cm Mirella Mccracken [facility] Internal Medicine Work Phone: 01-17-2009 07:54-0400 Height 149.86 cm [facility]ire[facility] [facility] Internal Medicine Work Phone: 01-17-2009 07:54-0400 Pulse (Heart Rate) 64 /min Mirella Mccracken [facility] Internal Medicine Work Phone: Comment on above: Pattern: Regular 01-17-2009 07:54-0400 Respiratory Rate 20 /min Mirella Mccracken [facility] Internal Medicine Work Phone: Comment on above: Pattern: Unlabored 01-17-2009 07:54-0400 Weight 61.46 kg Mirella Mccracken [facility] Internal Medicine Work Phone: 01-12-2009 07:52-0400 BMI (Body Mass Index) 27.37 kg/m2 Mirella Mccracken [facility] Internal Medicine Work Phone: 01-12-2009 07:52-0400 Body weight 61.46 kg Mirella Mccracken [facility] Internal Medicine Work Phone: 01-12-2009 07:52-0400 BP Diastolic 78 mm[Hg] Mirella Mccracken [facility] Internal Medicine Work Phone: Comment on above: Patient Position: Sitting; Cuff Location : Left Arm; Cuff Size: Large 01-12-2009 07:52-0400 BP Systolic 122 mm[Hg] Mirella Mccracken [facility] Internal Medicine Work Phone: Comment on above: Patient Position: Sitting; Cuff Location : Left Arm; Cuff Size: Large 01-12-2009 07:52-0400 BSA (Body Surface Area) 1.56 m2 Mirella Mccracken [facility] Internal Medicine Work Phone: 01-12-2009 07:52-0400 Head Circumference 0 cm Mirella Mccracken [facility] Internal Medicine Work Phone: 01-12-2009 07:52-0400 Height 149.86 cm Mirella Mccracken [facility] Internal Medicine Work Phone: 01-12-2009 07:52-0400 Pulse (Heart Rate) 72 /min Mirella Mccracken [facility] Internal Medicine Work Phone: Comment on above: Pattern: Regular 01-12-2009 07:52-0400 Respiratory Rate 18 /min Mirella Mccracken [facility] Internal Medicine Work Phone: Comment on above: Pattern: Unlabored 01-12-2009 07:52-0400 Weight 61.46 kg Mirella Mccracken [facility] Internal Medicine Work Phone: 01-02-2009 09:31-0400 BMI (Body Mass Index) 27.37 kg/m2 Mirella Mccracken [facility] Internal Medicine Work Phone: 01-02-2009 09:31-0400 Body weight 61.46 kg Mirella Mccracken [facility] Internal Medicine Work Phone: 01-02-2009 09:31-0400 BP Diastolic 78 mm[Hg] Mirella Mccracken [facility] Internal Medicine Work Phone: Comment on above: Patient Position: Sitting; Cuff Location : Left Arm; Cuff Size: Large 01-02-2009 09:31-0400 BP Systolic 138 mm[Hg] Mirella Mccracken [facility] Internal Medicine Work Phone: Comment on above: Patient Position: Sitting; Cuff Location : Left Arm; Cuff Size: Large 01-02-2009 09:31-0400 BSA (Body Surface Area) 1.56 m2 Mirella Mccracken [facility] Internal Medicine Work Phone: 01-02-2009 09:31-0400 Head Circumference 0 cm Mirella Mccracken [facility] Internal Medicine Work Phone: 01-02-2009 09:31-0400 Height 149.86 cm [facility]: 01-02-2009 09:31-0400 Pulse (Heart Rate) 72 /min Mirella Mccracken [facility] Internal Medicine Work Phone: Comment on above: Pattern: Regular 01-02-2009 09:31-0400 Respiratory Rate 20 /min Mirella Mccracken [facility] Internal Medicine Work Phone: Comment on above: Pattern: Unlabored 01-02-2009 09:31-0400 Weight 61.46 kg Mirella Mccracken [facility] Internal Medicine Work Phone: 12-07-2008 09:40-0400 BMI (Body Mass Index) 27.28 kg/m2 Mirella Mccracken [facility] Internal Medicine Work Phone: Comment on above: vision with correction OD= 20/50 OS=20/5 0 OU=20/50 12-07-2008 09:40-0400 Body weight 61.26 kg Mirella Mccracken [facility] Internal Medicine Work Phone: Comment on above: vision with correction OD= 20/50 OS=20/5 0 OU=20/50 12-07-2008 09:40-0400 BP Diastolic 78 mm[Hg] [facility] Work [facility]: Comment on above: Patient Position: Sitting; Cuff Location : Left Arm; Cuff Size: Large vision with correcti on OD= 20/50 OS=20/50 OU=20/50 12-07-2008 09:40-0400 BP Systolic 122 mm[Hg] Mirella Mccracken [facility] Internal Medicine Work Phone: Comment on above: Patient Position: Sitting; Cuff Location : Left Arm; Cuff Size: Large vision with correcti on OD= 20/50 OS=20/50 OU=20/50 12-07-2008 09:40-0400 BSA (Body Surface Area) 1.56 m2 [facility] Work [facility]: Comment on above: vision with correction OD= 20/50 OS=20/5 0 OU=20/50 12-07-2008 09:40-0400 Head Circumference 0 cm Mirella [facility] Internal Medicine Work Phone: Comment on above: vision with correction OD= 20/50 OS=20/5 0 OU=20/50 12-07-2008 09:40-0400 Height 149.86 cm Mirella [facility] Medicine Work Phone: Comment on above: vision with correction OD= 20/50 OS=20/5 0 OU=20/50 12-07-2008 09:40-0400 Pulse (Heart Rate) 72 /min Mirella [facility] Internal Medicine Work Phone: Comment on above: Pattern: Regular vision with correcti on OD= 20/50 OS=20/50 OU=20/50 12-07-2008 09:40-0400 Respiratory Rate 20 /min Mirella [facility] Internal Medicine Work Phone: Comment on above: Pattern: Unlabored vision with correcti on OD= 20/50 OS=20/50 OU=20/50 12-07-2008 09:40-0400 Weight 61.26 kg Mirella [facility] Internal Medicine Work Phone: Comment on above: vision with correction OD= 20/50 OS=20/5 0 OU=20/50 10-04-2008 09:20-0500 BMI (Body Mass Index) 26.31 kg/m2 Mirellazac Mccracken [facility] Internal Medicine Work Phone: 10-04-2008 09:20-0500 Body weight 59.08 kg Mirella [facility] Internal Medicine Work Phone: 10-04-2008 09:20-0500 BP Diastolic 76 mm[Hg] Mirella [facility] Internal Medicine Work Phone: Comment on above: Patient Position: Sitting; Cuff Location : Left Arm; Cuff Size: Large 10-04-2008 09:20-0500 BP Systolic 124 mm[Hg] [facility] Internal Medicine Work Phone: Comment on above: Patient Position: Sitting; Cuff Location : Left Arm; Cuff Size: Large 10-04-2008 09:20-0500 BSA (Body Surface Area) 1.54 m2 Mirella [facility] Internal Medicine Work Phone: 10-04-2008 09:20-0500 Head Circumference 0 cm Mirella Mccracken [facility] Internal Medicine Work Phone: 10-04-2008 09:20-0500 Height 149.86 cm Mirella Mccracken [facility] Internal Medicine Work Phone: 10-04-2008 09:20-0500 Pulse (Heart Rate) 72 /min Mirella Mccracken [facility] Internal Medicine Work Phone: Comment on above: Pattern: Regular 10-04-2008 09:20-0500 Respiratory Rate 20 /min Mirella Mccracken [facility] Internal Medicine Work Phone: Comment on above: Pattern: Unlabored 10-04-2008 09:20-0500 Weight 59.08 kg Mirella Mccracken [facility] Internal Medicine Work Phone: 09-21-2008 14:19-0500 BMI (Body Mass Index) 26.9 kg/m2 Mirella Mccracken [facility] Internal Medicine Work Phone: 09-21-2008 14:19-0500 Body weight 60.41 kg Mirella Mccracken [facility] Internal Medicine Work Phone: 09-21-2008 14:19-0500 BP Diastolic 80 mm[Hg] Mirella Mccracken [facility] Internal Medicine Work Phone: Comment on above: Patient Position: Sitting; Cuff Location : Left Arm; Cuff Size: Standard 09-21-2008 14:19-0500 BP Systolic 142 mm[Hg] Mirella Mccracken [facility] Internal Medicine Work Phone: Comment on above: Patient Position: Sitting; Cuff Location : Left Arm; Cuff Size: Standard 09-21-2008 14:19-0500 BSA (Body Surface Area) 1.55 m2 Mirella Mccracken [facility] Internal Medicine Work Phone: 09-21-2008 14:19-0500 Head Circumference 0 cm Mirella Mccracken [facility] Internal Medicine Work Phone: 09-21-2008 14:19-0500 Height 149.86 cm Mirella Mccracken [facility] Internal Medicine Work Phone: 09-21-2008 14:19-0500 Pulse (Heart Rate) 64 /min Mirella Mccracken [facility] Internal Medicine Work Phone: Comment on above: Pattern: Regular 09-21-2008 14:19-0500 Respiratory Rate 20 /min Mirella Mccracken [facility] Internal Medicine Work Phone: Comment on above: Pattern: Unlabored 09-21-2008 14:19-0500 Weight 60.41 kg Mirella Mccracken [facility] Internal Medicine Work Phone: 08-24-2008 13:56-0500 BMI (Body Mass Index) 26.9 kg/m2 Mirella Mccracken [facility] Internal Medicine Work Phone: 08-24-2008 13:56-0500 Body weight 60.41 kg Mirella Mccracken [facility] Internal Medicine Work Phone: 08-24-2008 13:56-0500 BP Diastolic 88 mm[Hg] Mirella Mccracken [facility] Internal Medicine Work Phone: Comment on above: Patient Position: Sitting; Cuff Location : Left Arm; Cuff Size: Standard 08-24-2008 13:56-0500 BP Systolic 142 mm[Hg] Mirella Mccracken [facility] Internal Medicine Work Phone: Comment on above: Patient Position: Sitting; Cuff Location : Left Arm; Cuff Size: Standard 08-24-2008 13:56-0500 BSA (Body Surface Area) 1.55 m2 Mirella Mccracken [facility] Internal Medicine Work Phone: 08-24-2008 13:56-0500 Head Circumference 0 cm Mirella Mccracken [facility] Internal Medicine Work Phone: 08-24-2008 13:56-0500 Height 149.86 cm Mirella Mccracken [facility] Internal Medicine Work Phone: 08-24-2008 13:56-0500 Pulse (Heart Rate) 80 /min Mirella Mccracken [facility] Internal Medicine Work Phone: Comment on above: Pattern: Regular 08-24-2008 13:56-0500 Respiratory Rate 20 /min Mirella Mccracken [facility] Internal Medicine Work Phone: Comment on above: Pattern: Unlabored 08-24-2008 13:56-0500 Weight 60.41 kg Mirella Mccracken [facility] Internal Medicine Work Phone: 06-28-2008 14:04-0400 BMI (Body Mass Index) 26.93 kg/m2 Mirella Mccracken [facility] Internal Medicine Work Phone: 06-28-2008 14:04-0400 Body weight 60.47 kg Mirella Mccracken [facility] Internal Medicine Work Phone: 06-28-2008 14:04-0400 BP Diastolic 78 mm[Hg] Mirella Mccracken [facility] Internal Medicine Work Phone: Comment on above: Patient Position: Sitting; Cuff Location : Left Arm; Cuff Size: Standard 06-28-2008 14:04-0400 BP Systolic 140 mm[Hg] Mirella Mccracken [facility] Internal Medicine Work Phone: Comment on above: Patient Position: Sitting; Cuff Location : Left Arm; Cuff Size: Standard 06-28-2008 14:04-0400 BSA (Body Surface Area) 1.55 m2 Mirella Mccracken [facility] Internal Medicine Work Phone: 06-28-2008 14:04-0400 Head Circumference 0 cm iMrella Mccracken [facility] Internal Medicine Work Phone: 06-28-2008 14:04-0400 Height 149.86 cm Mirella Mccracken [facility] Internal Medicine Work Phone: 06-28-2008 14:04-0400 Pulse (Heart Rate) 68 /min Mirella Mccracken [facility] Internal Medicine Work Phone: Comment on above: Pattern: Regular 06-28-2008 14:04-0400 Respiratory Rate 16 /min Mirella Mccracken [facility] Internal Medicine Work Phone: Comment on above: Pattern: Unlabored 06-28-2008 14:04-0400 Weight 60.47 kg Mirella Mccracken [facility] Internal Medicine Work Phone: Encounters Encounter Date Encounter Type Care Provider Facility Start: 05-16-2025 ambulatory Yesika Granados cility:[facility] Start: 05-16-2025 Registered Referred Yesika Dolan Start: 04-20-2025 End: 04-20-[address] Yesika Faust MD Work Phone: [facility] Start: 04-20-2025 End: 04-20-2025 Patient encounter procedure Miguel YATES [facility] Work Phone: Start: 04-14-2025 ambulatory Yesika VICENTE Fa cility:[facility] Start: 04-14-2025 Registered Referred Yesika Dolan Start: 03-20-2025 End: 03-20-[address] Yesika Faust MD Work Phone: [facility] Start: 03-20-2025 End: 03-20-2025 Patient encounter procedure Zeina Balbuena [facility] Work Phone: Start: 03-14-2025 End: 03-14-[address] Yesika Faust MD -[facility] Work Phone: Start: 03-14-2025 End: 03-14-[address] Yesika Faust MD Work Phone: [facility] Start: 03-14-2025 Registered Referred Yesika Dolan Start: 03-06-2025 Registered Referred Yesika Dolan Start: 03-06-2025 End: 03-06-[address] Yesika Faust MD Work Phone: [facility] Start: 03-06-2025 End: 03-06-2025 Patient encounter procedure Zeina Balbuena [facility] Work Phone: Start: 02-27-2025 ambulatory Yesika VICENTE Fa cility:[facility] Start: 02-27-2025 Registered Referred Yesika Dolan Start: 02-23-2025 End: 02-23-[address] Yesika Faust MD Work Phone: [facility] Start: 02-23-2025 End: 02-23-2025 Patient encounter procedure Miguel YATES [facility] Work Phone: Start: 02-13-2025 ambulatory Yesika VICENTE Fa cility:[facility] Start: 02-13-2025 Registered Referred Yesika Dolan Start: 01-31-2025 End: 01-31-[address] Yesika Faust MD Work Phone: [facility] Start: 01-31-2025 End: 01-31-[address] Yesika Faust MD -[facility] Work Phone: Start: 01-23-2025 ambulatory Yesika Masnoi ty:[facility] Start: 01-23-2025 Registered Referred Zeina Dolan Start: 01-18-2025 End: 01-18-2025 Departed Referred Yesika Dolan Start: 01-18-2025 Registered Referred Yesika Dolan Start: 01-18-2025 End: 01-18-2025 ambulatory Yesika VICENTE Facility:[facility] Start: 01-14-2025 End: 01-14-[address] Yesika Faust MD Work Phone: [facility] Work Phone: Start: 01-14-2025 End: 01-14-2025 Departed Referred Yesika Dolan Start: 01-14-2025 End: 01-14-2025 ambulatory Efky VICENTE Facility:[facility] Start: 01-12-2025 End: 01-12-[address] Yesika Faust MD Work Phone: [facility] Work Phone: Start: 01-12-2025 End: 01-12-2025 Departed Referred Yesika Dolan Start: 01-12-2025 Registered Referred Yesika Dolan Start: 01-12-2025 End: 01-12-2025 ambulatory Yesika VICENTE Facility:[facility] Start: 12-16-2024 End: 12-16-[address] Yesika Faust MD Work Phone: [facility] Work Phone: Start: 12-16-2024 End: 12-16-2024 Patient encounter procedure Zeina Balbuena [facility] -[facility] Work Phone: Start: 12-14-2024 End: 12-14-[address] Yesika Faust MD Work Phone: [facility] Work Phone: Start: 12-14-2024 End: 12-14-2024 Departed Referred Yesika Dolan Start: 12-14-2024 Registered Referred Yesika Dolan Start: 12-14-2024 End: 12-14-2024 ambulatory Yesika VICENTE Facility:[facility] Start: 11-15-2024 End: 11-15-2024 ambulatory Yesika Faust [facility] Start: 11-15-2024 End: 11-15-[address] Yesika Fuast MD -[facility] Work Phone: Start: 11-14-2024 End: 11-14-[address] Yesika Faust MD Work Phone: [facility] Work Phone: Start: 11-14-2024 End: 11-14-2024 Departed Referred Yesika Dolan Start: 11-14-2024 End: 11-14-2024 ambulatory Efewongbe Olekathiee OLS Facility:[facility] Start: 10-27-2024 End: 10-27-2024 ambulatory Efewongbe Oleghe Facility:[facility] Start: 10-27-2024 End: 10-27-2024 Patient encounter procedure Miguel YATES -[facility] Work Phone: Start: 10-17-2024 ambulatory Efewongbe Olekathiee OLS Fa cility:[facility] Start: 10-17-2024 Registered Referred Yesika Dolan Start: 10-14-2024 ambulatory Efewongbe Scoutkathiee OLS Fa cility:[facility] Start: 10-14-2024 Registered Referred Yesika Dolan Start: 09-20-2024 End: 09-20-2024 ambulatory Efenriquetaongbe Sammye Facility:[facility] Start: 09-20-2024 End: 09-20-[address] Yesika Faust MD -[facility] Work Phone: Start: 09-16-2024 ambulatory Efenriquetaongbe Sammye OLS Fa cility:[facility] Start: 09-16-2024 Registered Referred Yesika Dolan Start: 08-16-2024 End: 08-16-2024 Departed Referred Yesika Dolan Start: 08-16-2024 End: 08-16-2024 ambulatory Efewongbe Sammye OLS Facility:[facility] Start: 08-09-2024 End: 08-09-2024 ambulatory Efewongbe Oleghe Facility:[facility] Start: 08-04-2024 End: 08-04-2024 ambulatory Zeina Balbuena NP Facility:[facility] Start: 08-04-2024 End: 08-04-2024 ambulatory Efewongbe Oleghe OLS Facility:[facility] Start: 08-02-2024 End: 08-02-2024 ambulatory Efewongmacarena Christiansone OLS Facility:[facility] Start: 07-28-2024 End: 07-28-2024 ambulatory [facility] Facility:[facility] Start: 07-04-2024 End: 07-04-2024 ambulatory [facility] BRIM BLOCKER Facility:[facility] Start: 06-27-2024 End: 06-27-2024 ambulatory Carmen Azulo Facility:[facility] Start: 06-06-2024 End: 06-06-2024 ambulatory [facility]hitney [facility] [employer]IM [facility] Facility:[facility] Start: 05-27-2024 End: 05-27-2024 ambulatory Yesika Christiansone OLS Facility:[facility] Start: 05-17-2024 End: 05-17-2024 ambulatory Yesika Faust Facility:[facility] Start: 12-22-2023 End: 12-22-[address] Cl Tsang Work Phone: [facility] Work Phone: Start: 11-30-2023 End: 11-30-[address] Cl Tsang Work Phone: [facility] Work Phone: Start: 11-17-2023 End: 11-17-[address] Cl Tsang Work Phone: [facility] Work Phone: Start: 11-17-2023 End: 11-17-[address] Cl Tsang Work Phone: [facility] Start: 10-20-2023 End: 10-20-[address] Cl Tsang Work Phone: [facility] Work Phone: Start: 10-08-2023 End: 10-08-[address] Cl Tsang Work Phone: [facility] Work Phone: Start: 08-25-2023 End: 08-25-[address] Cl Tsang Work Phone: [facility] Work Phone: Start: 08-18-2023 End: 08-18-[address] Cl Tsang Work Phone: [facility] Work Phone: Start: 08-18-2023 End: 08-18-[address] Cl Tsang Work Phone: [facility] Start: 06-30-2023 End: 06-30-[address] Cl Tsang Work Phone: [facility] Work Phone: Start: 06-08-2023 End: 06-08-[address] Cl Tsang Work Phone: [facility] Work Phone: Start: 06-04-2023 End: 06-04-[address] Cl Tsang Work Phone: [facility] Work Phone: Start: 05-28-2023 End: 05-28-[address] Cl Tsang Work Phone: [facility] Work Phone: Start: 05-21-2023 End: 05-21-[address] Cl Tsang Work Phone: [facility] Work Phone: Start: 05-19-2023 End: 05-19-[address] Cl Tsang Work Phone: [facility] Start: 05-13-2023 End: 05-13-[address] Cl Tsang Work Phone: [facility] Work Phone: Start: 04-09-2023 End: 04-09-[address] Cl Tsang Work Phone: [facility] Work Phone: Start: 04-07-2023 End: 04-07-[address] Cl Tsang Work Phone: [facility] Work Phone: Start: 02-17-2023 End: 02-17-[address] Cl Tsang Work Phone: [facility] Work Phone: Start: 02-17-2023 End: 02-17-[address] Cl Tsang Work Phone: [facility] Work Phone: Start: 02-17-2023 End: 02-17-[address] Cl Tsang Work Phone: [facility] Start: 02-10-2023 End: 02-10-[address] Cl Tsang Work Phone: [facility] Work Phone: Start: 01-12-2023 End: 01-12-[address] Cl Tsang Work Phone: [facility] Work Phone: Start: 01-12-2023 End: 01-12-[address] Cl Tsang Work Phone: [facility] Start: 12-29-2022 End: 12-29-[address] Cl Tsang Work Phone: [facility] Start: 12-23-2022 End: 12-23-[address] Cl Tsang Work Phone: [facility] Start: 12-05-2022 End: 12-05-[address] Cl Tsang Work Phone: [facility] Start: 11-18-2022 End: 11-18-[address] Cl Tsang Work Phone: [facility] Work Phone: Start: 11-18-2022 End: 11-18-[address] Cl Tsang Work Phone: [facility] Start: 10-28-2022 End: 10-28-[address] Cl Tsang Work Phone: [facility] Start: 10-17-2022 End: 10-17-[address] Cl Tsang Work Phone: [facility] Start: 10-08-2022 End: 10-08-[address] Cl Tsang Work Phone: [facility] Start: 09-01-2022 End: 09-01-[address] Cl Tsang Work Phone: [facility] Start: 08-19-2022 End: 08-19-[address] Cl Tsang Work Phone: [facility] Work Phone: Start: 08-19-2022 End: 08-19-[address] Cl Tsang Work Phone: [facility] Start: 07-29-2022 End: 07-29-[address] Cl Tsang Work Phone: [facility] Start: 05-29-2022 End: 05-30-[address] Cl Tsang Work Phone: [facility] Start: 05-20-2022 End: 05-20-[address] Cl Tsang Work Phone: [facility] Work Phone: Start: 05-20-2022 End: 05-20-[address] Cl Tsang Work Phone: [facility] Start: 04-18-2022 End: 04-18-2022 Patient encounter procedure Dr. Cl Tsang Work Phone: [facility] Start: 03-07-[address] Cl herrera Work Phone: [facility] Start: 01-13-2022 End: 01-13-[address] Cl Tsang Work Phone: [facility] Start: 11-14-2021 End: 11-14-2021 Patient encounter procedure TRUDY YATES Work Phone: [facility] Start: 11-12-2021 End: 11-12-2021 Departed Referred TRUDY YATES Work Phone: [facility] Start: 09-30-2021 End: 09-30-2021 Patient encounter procedure PA Sabrina YATES Work Phone: [facility] Start: 05-05-2019 Review Mirella Nicole Compreh ensive Internal Medicine Start: 05-05-2019 End: 05-05-2019 Office outpatient visit 25 minutes Mirellazac Mccracken [facility] Start: 03-15-2019 Review Mirella Nicole Compreh ensive Internal Medicine Start: 03-15-2019 End: 03-15-2019 Office outpatient visit 15 minutes Mirellaleatha Mccracken [facility] Start: 01-21-2018 End: 01-21-2018 Office outpatient visit 25 minutes Mirellazac [facility] Start: 11-09-2017 End: 11-09-2017 Office outpatient visit 10 minutes Mirellaleatha [facility] Start: 10-15-2017 End: 10-15-2017 Office outpatient visit 15 minutes Mirellazac [facility] Start: 09-18-2017 End: 09-18-2017 Office [...] 07-02-2016 End: 07-02-2016 Phone Encounter Mirella Sunshine [facility] Start: 07-01-2016 End: 07-01-2016 Office [...] Start: 05-23-2015 End: 05-23-2015 Annotation/Addendum Mirella Sunshine [facility] Start: 05-23-2015 End: 05-23-2015 Office outpatient visit 5 minutes Mirella Sun[facility] Start: 05-16-2015 End: 05-16-2015 Office outpatient visit 5 minutes Mirella Sunshine [facility] Start: 05-09-2015 End: 05-09-2015 Office outpatient visit 5 minutes Mirella Sunshine [facility] Start: 04-26-2015 End: 04-26-2015 Phone Encounter Mirella Sunshine [facility] Start: 04-19-2015 End: 04-19-2015 Office outpatient visit 40 minutes Mirella Sunshine [facility] Start: 01-11-2015 End: 01-11-2015 Office outpatient visit 25 minutes Mirella Sunshine [facility] Start: 10-31-2014 End: 10-31-2014 Office outpatient visit 15 minutes Mirella Sunshine [facility] Start: 10-12-2014 End: 10-12-2014 Office outpatient visit 25 minutes Mirella Sunshine [facility] Start: 09-11-2014 End: 09-11-2014 Phone Encounter Mirella Sunshine [facility] Start: 08-31-2014 End: 08-31-2014 Office outpatient visit 15 minutes Mirella Sunshine Internal [facility] Start: 08-21-2014 End: 08-22-2014 Office [...] End: 07-14-2014 Office outpatient visit 15 minutes Mirellaleatha Searson [facility] Internal Medicine Start: 04-17-2014 End: 04-17-2014 Office outpatient visit 15 minutes Mirella Nicole [facility] Internal Medicine Start: 04-13-2014 End: 04-13-2014 Phone Encounter Mirellaleatha Mccracken Jong [facility] al Medicine Start: 04-06-2014 End: 04-06-2014 Patient encounter procedure Mirella Nicole [facility] Internal Medicine Start: 04-06-2014 End: 04-06-2014 Patient encounter procedure Mirellaleatha Searson [facility] Internal Medicine Start: 12-30-2013 End: 12-30-2013 Patient encounter procedure Mirella Nicole [facility] Internal Medicine Start: 12-22-2013 End: 12-22-2013 Patient encounter procedure Mirella Nicole [facility] Internal Medicine Start: 12-01-2013 End: 12-01-2013 Phone Encounter Mirella Nicole [facility]fdc Consultant al Medicine Start: 12-01-2013 End: 12-01-2013 Patient encounter procedure Mirella Mccracken [facility] Internal Medicine Start: 09-23-2013 End: 09-23-2013 Patient encounter procedure Mirella Nicole [facility] Internal Medicine Start: 09-13-2013 End: 09-13-2013 Phone Encounter Mirellaleatha Searson [facility] Sfdc Consultant al Medicine Start: 08-01-2013 End: 08-01-2013 Patient encounter procedure Mirella Mccracken [facility] Internal Medicine Start: 07-04-2013 End: 07-04-2013 Patient encounter procedure Mirella Mccracken [facility] Internal Medicine Start: 06-27-2013 End: 06-27-2013 Patient encounter procedure Mirella Mccracken [facility] Internal Medicine Start: 06-20-2013 End: 06-20-2013 Patient encounter procedure Mirella Nicole [facility] Internal Medicine Start: 06-08-2013 End: 06-08-2013 Patient encounter procedure Mirella Nicole [facility] Internal Medicine Start: 05-20-2013 End: 05-20-2013 Patient encounter procedure Mirella Nicole [facility] Internal Medicine Start: 04-22-2013 End: 04-22-2013 Patient encounter procedure Mirella Nicole [facility] Internal Medicine Start: 04-15-2013 End: 04-15-2013 Patient encounter procedure Mirella Mccracken [facility] Internal Medicine Start: 03-31-2013 End: 03-31-2013 Patient encounter procedure Mirella Mccracken [facility] Internal Medicine Start: 02-28-2013 End: 02-28-2013 Patient encounter procedure Mirella Mccracken [facility] Internal Medicine Start: 11-15-2012 End: 11-15-2012 Patient encounter procedure Mirella Mccracken [facility] Internal Medicine Start: 10-25-2012 End: 10-25-2012 Patient encounter procedure Mirella Mccracken [facility] Internal Medicine Start: 10-21-2012 End: 10-21-2012 Patient encounter procedure Mirella Mccracken [facility] Internal Medicine Start: 09-30-2012 End: 09-30-2012 Patient encounter procedure Mirella Mccracken [facility] Internal Medicine Start: 09-30-2012 End: 09-30-2012 Phone Encounter Mirellaleatha Mccracken [facility] Sfdc Consultant al Medicine Start: 09-16-2012 End: 09-16-2012 Patient encounter procedure Mirella Mccracken [facility] Internal Medicine Start: 05-27-2012 End: 05-28-2012 Nursing evaluation of patient and report Mirellaleatha Searson [facility] Internal Medicine Start: 03-11-2012 End: 03-11-2012 Patient encounter procedure Mirellaleatha Mccracken [facility] Internal Medicine Start: 03-04-2012 End: 03-05-2012 Patient encounter procedure Mirella Mccracken [facility] Internal Medicine Start: 02-25-2012 End: 02-25-2012 Patient encounter procedure Mirellaleatha Mccracken [facility] Internal Medicine Start: 02-05-2012 End: 02-05-2012 Phone Encounter Mirellaleatha Mccracken [facility] al Medicine Start: 02-04-2012 End: 02-04-2012 Phone Encounter Mirellaleatha Mccracken [facility] al Medicine Start: 01-30-2012 End: 01-30-2012 Patient encounter procedure Mirellaleatha Mccracken [facility] Internal Medicine Start: 01-15-2012 End: 01-15-2012 Patient encounter procedure Mirella Mccracken [facility] Internal Medicine Start: 12-31-2011 End: 12-31-2011 Patient encounter procedure Mirella Mccracken [facility] Internal Medicine Start: 12-26-2011 End: 12-26-2011 Patient encounter procedure Mirella Mccracken [facility] Internal Medicine Start: 12-24-2011 End: 12-24-2011 Patient encounter procedure Mirellaleatha Searson [facility] Internal Medicine Start: 12-15-2011 End: 12-15-2011 Patient encounter procedure Mirella Nicole [facility] Internal Medicine Start: 11-26-2011 End: 11-26-2011 Patient encounter procedure Mirella [facility] Start: 11-12-2011 End: 11-12-2011 Patient encounter procedure Mirella Nicole [facility] Internal Medicine Start: 11-06-2011 End: 11-06-2011 Office outpatient visit 25 minutes Mirella Mccracken [facility] Internal Medicine Start: 10-22-2011 End: 10-22-2011 Annotation/Addendum Mirella Sunshine [facility] Consultant al Medicine Start: 10-21-2011 End: 10-21-2011 Office outpatient visit 25 minutes Mirella Mccracken [facility] Internal Medicine Start: 06-05-2011 End: 06-05-2011 Patient encounter procedure Mirella Mccracken [facility] Internal Medicine Start: 05-08-2011 End: 05-08-2011 Patient encounter procedure Mirella Mccracken [facility] Internal Medicine Start: 05-07-2011 End: 05-07-2011 Office outpatient visit 15 minutes Mirella Mccracken [facility] Internal Medicine Start: 05-06-2011 End: 05-06-2011 Office outpatient visit 15 minutes Mirella Mccracken [facility] Internal Medicine Start: 11-06-2010 End: 11-06-2010 Office outpatient visit 15 minutes Mirella Mccracken [facility] Internal Medicine Start: 11-04-2010 End: 11-04-2010 Office outpatient visit 15 minutes Mirella Mccracken [facility] Internal Medicine Start: 10-14-2010 End: 10-14-2010 Patient encounter procedure Mirella Nicole [facility] Internal Medicine Start: 07-17-2010 End: 07-17-2010 Patient encounter procedure Mirella Mccracken [facility] Internal Medicine Start: 06-17-2010 End: 06-17-2010 Patient encounter procedure Mirella Mccracken [facility] Internal Medicine Start: 01-25-2010 End: 01-25-2010 Patient encounter procedure Mirella Mccracken [facility] Internal Medicine Start: 12-13-2009 End: 12-13-2009 Patient encounter procedure Mirella Mccracken [facility] Internal Medicine Start: 10-03-2009 End: 10-03-2009 Office outpatient visit 10 minutes Mirella Mccracken [facility] Internal Medicine Start: 06-13-2009 End: 06-13-2009 Patient encounter procedure Mirella Mccracken [facility] Internal Medicine Start: 01-17-2009 End: 01-17-2009 Office outpatient visit 15 minutes Mirella Mccracken [facility] Internal Medicine Start: 01-12-2009 End: 01-12-2009 Office outpatient visit 25 minutes Mirella Mccracken [facility] Internal Medicine Start: 01-02-2009 End: 01-02-2009 Patient encounter procedure Mirella Mccracken [facility] Internal Medicine Start: 12-07-2008 End: 12-07-2008 Patient encounter procedure Mirella Mccracken [facility] Internal Medicine Start: 10-04-2008 End: 10-04-2008 Patient encounter procedure Mirella Mccracken [facility] Internal Medicine Start: 09-21-2008 End: 09-21-2008 Office outpatient visit 25 minutes Mirella Mccracken [facility] Internal Medicine Start: 08-24-2008 End: 08-24-2008 Patient encounter procedure Mirella Mccracken [facility] Internal Medicine Start: 06-28-2008 End: 06-28-2008 Patient encounter procedure Mirella Mccracken [facility] Internal Medicine Start: 06-28-2008 End: 06-28-2008 Patient encounter procedure Mirella Mccracken [facility] Internal Medicine Start: 06-26-2008 End: 06-26-2008 Historical Summary Mirella Mccracken [facility] Sfdc Consultant al Medicine Procedures Date Procedure Procedure Detail [...] 1 View (Portable) Comments: See Note; NOTES: [facility] Imaging Services [address] [place] [address] Chest 1 View (Portable) MR#: [id number] Acct: [id number] Name: AGUSTIN GARCIA Rep #: [id number] : 1940 F 79 From: Antoni Gaviria MD PCP: Mirella Mccracken DO Status: [facility] Study: Chest 1 View (Portable) Date of Exam: 05/27/19 Exam# [id number] Ordering Dr: Satish Gonzales MD STUDY: X-RAY [...] CC: Satish Gonzales MD; Mirella Mccracken DO Principal Biostatistician: Signed Mirella Mccracken Start: 05-27-2019 End: 05-27-2019 Shoulder min 2 Views Comments: See Note; NOTES: [facility] Imaging Services [address] [facility] [place] [address] Shoulder min 2 Views MR#: [id number] Acct: [id number] Name: AGUSTIN GARCIA Rep #: [id number] : 1940 F 79 From: Antoni Gaviria MD PCP: Mirella Mccracken DO Status: [facility] Study: Shoulder min 2 Views Date of Exam: 05/27/19 Exam# [id number] Ordering Dr: Aury Hyde MD STUDY: X-RAY [...] CC: Aury Hyde MD; Mirella Mccracken DO Principal Biostatistician: Signed Mirella Mccracken Start: 05-27-2019 End: 05-27-2019 Operative Report Comments: See Note; NOTES: [facility] Medical Records Department [address] [place] [address] Operative Report 05/27/19 1615 MR#: [id number] Acct: [id number] Name: AGUSTIN GARCIA Rep #: [id number] : 1940 79 From: Uriel Francois MD PCP: Mirella Mccracken DO Status: REG SDC Y Location: [place] [address] Report of Operation Date of Procedure: 05/27/19 [...] back to the operating room at the [facility] she was placed in dorsolithotomy position went into the bladder with a 21 Persian rigid cystourethroscope cannulated the left ureteral orifice [...] 05-27-2019 Discharge Instruction Comments: See Note; NOTES: [facility] Medical Records Department [facility] [place] [address] Instructions for Home/Discharge Instructions 05/27/19 1614 MR#: [id number] Acct: [id number] Name: AGUSTIN GARCIA Rep #: [id number] : 1940 79 From: Uriel Francois MD PCP: Mirella Mccracken DO Status: REG [facility] Discharge Diet: Light diet - advance as [...] or 2 Views Comments: See Note; NOTES: [facility] Imaging Services [address] [place] [address] Pelvis 1 or 2 Views MR#: [id number] Acct: [id number] Name: AGUSTIN GARCIA Rep #: [id number] : 1940 F 79 From: Antoni Gaviria MD PCP: Mirella Mccracken DO Status: [facility] Study: Pelvis 1 or 2 Views Date of Exam: 05/27/19 Exam# [id number] Ordering Dr: Uriel Francois MD STUDY: X-RAY [...] CC: Uriel Francois MD; Mirella Mccracken DO Principal Biostatistician: Signed Mirella Mccracken Start: 05-05-2019 End: 05-05-2019 Abdomen/Pelvis WITH Contrast Comments: See Note; NOTES: [facility] Imaging Services [address] [place] [address] Abdomen/Pelvis WITH Contrast MR#: [id number] Acct: [id number] Name: AGUSTIN GARCIA Rep #: [id number] : 1940 F 79 From: Zoran Reinoso MD PCP: Mirella Mccracken DO Status: REG CLI Study: Abdomen/Pelvis WITH Contrast Date of Exam: 05/05/19 Exam# [id number] Ordering Dr: Mirella Mccracken DO STUDY: CT [...] Service support , CC: Mirella Mccracken DO Principal Biostatistician: Signed Mirella Mccracken Work Phone: Start: 03-18-2019 End: 03-18-2019 Pelvic (Non ) Comments: See Note; NOTES: [facility] Imaging Services [address] [place] [address] Pelvic (Non ) MR#: [id number] Acct: [id number] Name: AGUSTIN GARCIA Rep #: [id number] : 1940 F 78 From: Avi Fisher MD PCP: Mirella Mccracken DO Status: REG CLI Study: Pelvic (Non ) Date of Exam: 03/18/19 Exam# [id number] Ordering Dr: Mirella Mccracken DO STUDY: ULTRASOUND [...] Service support , CC: Mirella Mccracken DO Principal Biostatistician: Signed Mirella Mccracken Work Phone: Start: 03-15-2019 End: 03-15-2019 Venous Duplex Lower Extremity Comments: See Note; NOTES: [facility] Cardiovascular Services [address] [place] [address] Venous Duplex US, Unilateral 03/15/19 1340 MR#: [id number] Acct: [id number] Name: AGUSTIN GARCIA Rep #: [id number] : 1940 78 From: James Moctezuma MD [...] was called and/or faxed augmentation. to Dr. Mccrcaken. POP V is compressible, spontaneous, phasic, competent [...] Date Dictated: 03/15/19 1340 Date Transcribed: 03/15/19 1423 Principal Biostatistician: Signed Mirella Mccracken Work Phone: Start: 11-17-2017 End: 11-17-2017 PT D/C Summary (1) Comments: See Note; NOTES: [facility] Physical Therapy [address] [place], [place] [address] Fax REHABILITATION SERVICES DISCHARGE SUMMARY MR#: [id number] Acct: [id number] Name: AGUSTIN GARCIA Rep #: [id number] : 1940 77 From: Chester Christine DPT, OCS, CSCS Referring DrSamaria: Mirella Mccracken DO Status: REG RCR Insurance: MEDICARE PART A B [employer] HP - PT D/C Summary It has been my pleasure to treat AGUSTIN GARCIA under orders from DR.KFEARO Chuy for the [...] please feel free to call me at [phone]. Thank you for the referral of this patient. Sincerely, Chester Christine DPT, OC <Electronically signed by Chester Christine DPT, MAKEDA, CSCS> 11/17/17 0920 CC: Mirella Mccracken DO EBG Signed Mirella Mcrcacken Start: 11-13-2017 End: 11-13-2017 Inital Evaluation (1) - PT Comments: See Note; NOTES: [facility] Physical Therapy [facility] [address] [place] [address]. [address] [place], [place] [address] Fax REHABILITATION SERVICES INITIAL EVALUATION MR#: [id number] Acct: [id number] Name: AGUSTIN GARCIA Rep #: [id number] : 1940 77 From: Chester Christine DPT, MAKEDA, CSCS Referring Dr.: Mirella Mccracken DO Status: REG RCR Insurance: MEDICARE PART A B [facility] Patient's Visit Information AGUSTIN GARCIA is a 77 year old F referred to Physical Therapy by Mirella Mccracken DR.KFSOM with a diagnosis of L hip pain.. [...] to be FAXED BACK to us at [phone] for Medicare purposes. Please let me know [...] Min 2 Views Comments: See Note; NOTES: [facility] Imaging Services [address] [place] [address] Femur Min 2 Views MR#: [id number] Acct: [id number] Name: AGUSTIN GARCIA Rep #: [id number] : 1940 F 77 From: Edward Jha MD PCP: Mirella Mccracken DO Status: REG CLI Study: Femur Min 2 Views Date of Exam: 10/15/17 Exam# [id number] Ordering Dr: Mirella Mccracken DO STUDY: X-RAY [...] Edward Jha MD at 15:48 EST Tel [phone], Service support , CC: Mirella Mccracken DO Principal Biostatistician: Signed Mirella Mccracken Work Phone: Start: 10-15-2017 End: 10-15-2017 Hip 2-3 Views with Pelvis Comments: See Note; NOTES: [facility] Imaging Services [address] [place] [address] Hip 2-3 Views with Pelvis MR#: [id number] Acct: [id number] Name: AGUSTIN GARCIA Rep #: [id number] : 1940 F 77 From: Edward Jha MD PCP: Mirella Mccracken DO Status: REG CLI Study: Hip 2-3 Views with Pelvis Date of Exam: 10/15/17 Exam# [id number] Ordering Dr: Mirella Mccracken DO STUDY: X-RAY [...] Edward Jha MD at 15:54 EST Tel [phone], Service support , STUDY: X-RAY - PELVIS [...] Edward Jha MD at 15:55 EST Tel [phone], Service support , CC: Mirella Mccracken DO Principal Biostatistician: Signed Mirella Mccracken Work Phone: Start: 06-05-2017 End: 06-05-2017 Follow Up Appt 6 months Jose Vargas MD Start: 06-05-2017 End: 06-05-2017 MM Jose Vargas MD Start: 03-26-2017 End: 03-26-2017 Ribs Uni Min 3V w/PA Chest Comments: See Note; NOTES: [facility] Imaging Services [address] [place] [address] Verdana 4d Ribs Uni Min 3V w/PA Chest MR#: [id number] Acct: [id number] Name: AGUSTIN GARCIA Rep #: [id number] : 1940 F 76 From: Tomas Pat MD PCP: Mirella Mccracken DO Status: REG CLI Study: Ribs Uni Min 3V w/PA Chest Date of Exam: 03/26/17 Exam# [id number] Ordering Dr: Stephenie Burkett MD STUDY: X-RAY [...] CC: Stephenie Burkett MD; Mirella Mccracken DO Principal Biostatistician: Signed Stephenie Burkett Work Phone: Start: 11-13-2016 End: 11-13-2016 Kidney and Bladder Comments: See Note; NOTES: [facility] Imaging Services [address] [place] [address] Verdana 4d Kidney and Bladder MR#: [id number] Acct: [id number] Name: AGUSTIN GARCIA Rep #: [id number] : 1940 F 76 From: Mackenzie Ortega MD PCP: Mirella Mccracken DO Status: REG CLI Study: Kidney and Bladder Date of Exam: 11/13/16 Exam# [id number] Ordering Dr: Uriel Francois MD STUDY: RENAL [...] MD at 16:03 EST , Service support [phone], CC: Uriel Francois MD; Mirella Mccracken DO Principal Biostatistician: Signed Mirella Mccracken Start: 11-03-2016 End: 11-03-2016 Follow Up Appt 9 months Zaria Trevino PA-C Work Phone: Start: 11-03-2016 End: 11-03-2016 [facility] Zaria Trevino PA-C Work Phone: Start: 07-07-2016 End: 07-07-2016 Breast Limited Unilateral Comments: See Note; NOTES: [facility] Imaging Services [address] [place] [address] Verdana 4d Breast Limited Unilateral MR#: [id number] Acct: [id number] Name: AGUSTIN GARCIA Rep #: [id number] : 1940 F 76 From: Edward Jha MD PCP: Mirella Mccracken DO Status: REG CLI Study: Breast Limited Unilateral Date of Exam: 07/07/16 Exam# [id number] Ordering Dr: Mirella Mccracken DO STUDY: ULTRASOUND [...] Edward Jha MD at 15:23 EDT Tel [phone], Service support [phone], CC: Mirella Mccracken DO Principal Biostatistician: Signed Mirella Mccracken Work Phone: Start: 07-07-2016 End: 07-07-2016 Unilat Rt Diag Digital AND CAD Comments: See Note; NOTES: [facility] Imaging Services [address] [place] [address] Verdana 4d Unilat Rt Diag Digital AND CAD MR#: [id number] Acct: [id number] Name: AGUSTIN GARCIA Rep #: [id number] : 1940 F 76 From: Edward Jha MD PCP: Mirella Mccracken DO Status: REG CLI Study: Unilat Rt Diag Digital AND CAD Date of Exam: 07/07/16 Exam# [id number] Ordering Dr: Nicole, Mirella DO MAMMOGRAPHY - UNILATERAL DIAGNOSTIC: RIGHT BREAST [...] no significant change since the prior study. [facility]/Unilat Rt Diag Digital AND CAD IMPRESSION: Stable [...] Edward Jha MD at 15:21 EDT Tel [phone], Service support [phone], CC: Mirella Mccracken DO Principal Biostatistician: Signed Mirella Mccracken Work Phone: Start: 05-21-2016 End: 05-22-2016 Foot min 3 Views Comments: See Note; NOTES: [facility] Imaging Services [address] [place] [id number] [place] [address] 4d Foot min 3 Views MR#: [id number] Acct: [id number] Name: AGUSTIN GARCIA Rep #: [id number] : 1940 F 76 From: Edward Jha MD PCP: Mirella Mccracken DO Status: REG CLI Study: Foot min 3 Views Date of Exam: 05/21/16 Exam# [id number] Ordering Dr: Mirella Mccracken DO STUDY: X-RAY [...] Edward Jha MD at 9:42 EDT Tel [phone], Service support [phone], CC: Mirella Mccracken DO Principal Biostatistician: Signed Mirella Mccracken Work Phone: Start: 05-07-2016 End: 05-07-2016 Follow Up Appt 6 months Jose Vargas MD Start: 05-07-2016 End: 05-07-2016 [facility] Jose Vargas MD Start: 01-04-2016 End: 01-04-2016 Ecg routine ecg w/least 12 lds w/i&r [MEASUREMENTS ANALYSIS] Date of Test: 01/04/2016 10:09:41; Heart Rate: 59; ID Interval: 158; QRS: 88; QT Interval: 432; Corrected QT Interval (QTc): 431; P Wave Bow: 32; QRS Wave Bow: 10; T Wave Bow: 47; Blood Pressure: 110/64 [ECG DIAGNOSTIC STATEMENTS] Date of Test: 01/04/2016 10:09:41; Summary: Sinus Bradycardia WITHIN NORMAL LIMITS Mirella Mccracken Work Phone: Comment on above: sinus elin no acute chg Start: 11-29-2015 End: 11-29-2015 Carotid Duplex Ultrasound Comments: See Note; NOTES: [facility] Cardiovascular Services [address] [place] [address] Carotid Duplex Ultrasound 11/20/15 1035 MR#: [id number] Acct: [id number] Name: AGUSTIN GARCIA Rep #: [id number] : 1940 75 From: Miko Cutler MD Attending Dr: Zaria Bustamante Status: REG CLI Ordering Dr: Zaria Bustamante PA Date: 11/20/15 Location: [facility] Sex: F C Admitted: Reason For Study: [...] the left vertebral artery. Procedure Carotid Duplex 65687. The exam was diagnostic. Exam performed in [...] Dictated: 11/20/15 1035 Date Transcribed: 11/29/15 1556 Principal Biostatistician: Signed Mirella Mccracken Start: 11-13-2015 End: 11-13-2015 Bilat Scrn Digital AND CAD Comments: See Note; NOTES: [facility] Imaging Services [address] [place] [address] Verdana 4d Bilat Scrn Digital AND CAD MR#: [id number] Acct: [id number] Name: AGUSTIN GARCIA Rep #: [id number] : 1940 F 75 From: Edward Jha MD PCP: Mirella Mccracken DO Status: REG CLI Study: Bilat Scrn Digital AND CAD Date of Exam: 11/13/15 Exam# [id number] Ordering Dr: Mirella Mccracken DO MAMMOGRAPHY - [...] delay biopsy of a clinically suspicious abnormality. [id number] Electronically Signed: Edward Jha MD at 14:46 EST Tel [phone], Service support [phone], CC: Mirella Mccracken DO Principal Biostatistician: Signed Mirella Mccracken Work Phone: Start: 11-05-2015 [...] Cervical without Contras Comments: See Note; NOTES: [facility] Imaging Services [address] [place] [address] CAT Scan Report MR#: [id number] Acct: [id number] Name: AGUSTIN GARCIA Rep #: [id number] : 1940 F 75 From: Otoniel Tam MD PCP: Mirella Mccracken DO Status: REG CLI Study: Spine Cervical without Contras Date of Exam: 06/07/15 Exam# [id number] Ordering Dr: Louis Tsang STUDY: CT CERVICAL [...] MD at 16:59 EDT , Service support [phone], CC: Mirella Mccracken DO; LOUIS TSANG Principal Biostatistician: Signed Mirella Mccracken Start: 05-22-2015 End: 05-23-2015 Spine Lumbar without Contrast Comments: See Note; NOTES: [facility] Imaging Services [address] [place] [address] CAT Scan Report MR#: [id number] Acct: [id number] Name: AGUSTIN GARCIA Rep #: [id number] : 1940 F 75 From: Ruddy Pozo MD PCP: Mirella Mccracken DO Status: REG CLI Study: Spine Lumbar without Contrast Date of Exam: 05/22/15 Exam# [id number] Ordering Dr: Louis Tsang STUDY: CT LUMBAR [...] at 10:05 EDT Tel , Service support [phone], CC: Mirella Mccracken DO; LOUIS TSANG Principal Biostatistician: Signed Mirella Nicole Start: 05-09-2015 End: 05-10-2015 Documentation of current medications Jose Vargas MD Start: 05-09-2015 End: 05-09-2015 Follow Up Appt 6 months Jose Vargas MD Start: 05-09-2015 End: 10-23-2016 Follow Up Appt Other Jose Vargas MD Start: 05-09-2015 End: 05-09-2015 MMM Jose Vargas MD Start: 04-26-2015 End: 04-26-2015 Brain/Head W/WO Contrast Comments: See Note; NOTES: [facility] Imaging Services [address] [place] [address] CAT Scan Report MR#: [id number] Acct: [id number] Name: AGUSTIN GARCIA Rep #: [id number] : 1940 F 74 From: Edward Jha MD PCP: Mirella Mccracken DO Status: REG CLI Study: Brain/Head W/WO Contrast Date of Exam: 04/26/15 Exam# [id number] Ordering Dr: Mirella Mccracken DO STUDY: CT [...] Edward Jha MD at 12:51 EDT Tel [phone], Service support [phone], CC: Mirella Mccracken DO Principal Biostatistician: Signed Mirella Mccracken Work Phone: Start: 10-24-2014 End: 10-24-2014 Breast Complete Unilateral Comments: See Note; NOTES: [facility] Imaging Services [address] [place] [address] Ultrasound Report MR#: [id number] Acct: [id number] Name: RADHAAGUSTIN Rep #: [id number] : 1940 F 74 From: Edward Jha MD PCP: Mirella Mccracken DO Status: REG CLI Study: Breast Complete Unilateral Date of Exam: 10/24/14 Exam# [id number] Ordering Dr: Mirella Mccracken DO STUDY: ULTRASOUND [...] Edward Jha MD at 11:15 EST Tel [phone], Service support [phone], CC: Mirella Mccracken DO Principal Biostatistician: Signed Mirella Mccracken Work Phone: Start: 10-24-2014 End: 10-25-2014 Dexa Bone Density Study () Comments: See Note; NOTES: [facility] Imaging Services [address] [place] [address] Bone Density Report MR#: [id number] Acct: [id number] Name: RADHAAGUSTIN Rep #: [id number] : 1940 F 74 From: Edward Jha MD PCP: Mirella Mccracken DO Status: [facility] Study: Dexa Bone Density Study (HP) Date of Exam: 10/24/14 Exam# [id number] Ordering Dr: Mirella Mccracken DO STUDY: DUAL [...] Edward Jha MD at 10:14 EST Tel [phone], Service support [phone], CC: Mirella Mccracken DO Principal Biostatistician: Signed Mirella Mccracken Work Phone: Start: 10-19-2014 End: 10-20-2014 Bilat Scrn Digital AND CAD Comments: See Note; NOTES: [facility] Imaging Services [address] [place] [address] Breast Imaging Report MR#: [id number] Acct: [id number] Name: AGUSTIN GARCIA Rep #: [id number] : 1940 F 74 From: Edward Jha MD PCP: Mirella Mccracken DO Status: REG CLI Study: Bilat Scrn Digital AND CAD Date of Exam: 10/19/14 Exam# [id number] Ordering Dr: Mirella Mccracken DO MAMMOGRAPHY - [...] Edward Jha MD at 13:38 EST Tel [phone], Service support [phone], CC: Mirella Mccracken DO Principal Biostatistician: Signed Mirella Mccracken Work Phone: Start: 10-10-2014 [...] Brain/Head W/WO Contrast Comments: See Note; NOTES: [facility] Imaging Services [address] [place] [address] CAT Scan Report MR#: [id number] Acct: [id number] Name: AGUSTIN GARCIA Rep #: [id number] : 1940 F 74 From: Aduie Hugo MD PCP: Mirella Mccracken DO Status: REG CLI Study: Brain/Head W/WO Contrast Date of Exam: 09/08/14 Exam# [id number] Ordering Dr: Mirella Mccracken DO STUDY: CT [...] To Hugo MD at 8:17 EST Tel [phone], Service support [phone], CC: Mirella Mccracken DO Principal Biostatistician: Signed Mirella Mccracken Work Phone: Start: 07-27-2014 End: 07-27-2014 History and Physical Exam Comments: See Note; NOTES: [facility] Medical Records Department [address] [place] [address] History and Physical 07/27/14 0753 MR#: [id number] Acct: [id number] Name: AGUSTIN GARCIA Rep #: [id number] : 1940 74 From: Nella Howard PCP: Mirella Mccracken DO Status: PRE [facility] Location: [facility] DATE OF SERVICE: 07/28/2014 PREOPERATIVE DIAGNOSIS: Painful [...] can get back to my activity as usual." I had discussed with the patient risks, complications, benefits, alternative treatments in detail. The patient understands possibility for slow healing, nonhealing and shifting of remaining toes and the patient states she understands and would like to go ahead with the procedure. The patient shows no sign of respiratory compromise. She is scheduled to undergo outpatient surgical intervention at [facility] on July 28, 2014. Pedal pulses are easily palpable bilaterally and consent was reviewed, signed and placed in chart. Nella Howard DPM T: NTS JOB: [id number] 07/27/14 1156 <Electronically signed by Nella Howard > Date: Time: Nella Howard CC: Mirella Mccracken DO; Nella Howard DPM Date Dictated: 07/27/14752 Date Transcribed: 07/27/14752 Principal Biostatistician: Signed ____ I have re-examined the patient. There are no clinical changes since date of exam. ____ See Progress Notes for Changes ____ Dictated on Admission Date: Time: Signature: Mirella Mccracken Start: 04-10-2014 End: 04-10-2014 Follow Up Appt 6 months Jose Vragas MD Start: 04-10-2014 End: 04-10-2014 Follow Up BP Check Jose Vargas MD Start: 04-10-2014 End: 04-10-2014 MMM Jose Vargas MD Start: 12-22-2013 End: 12-22-2013 CTA Chest W/WO Contrast Comments: See Note; NOTES: [facility] Imaging Services [address] [place] [address] CAT Scan Report MR#: [id number] Acct: [id number] Name: AGUSTIN GARCIA Rep #: [id number] : 1940 F 73 From: Edward Jha MD PCP: Status: REG CLI Study: CTA Chest W/WO Contrast Date of Exam: 12/22/13 Exam# [id number] Ordering Dr: Mirella Mccracken DO STUDY: CTA [...] at 13:14 EDT Tel , Service support [phone], CC: Mirella Mccracken DO Principal Biostatistician: Signed Mirella Mccracken Work Phone: Start: 12-13-2013 [...] PA-C Work Phone: Start: 08-08-2013 End: 08-08-2013 PFClara Trevino PA-C Work Phone: Start: 06-20-2013 End: 06-22-2013 Brain/Head w/wo Contrast Comments: See Note; NOTES: [facility] Imaging Services [address] [place] [address] CAT Scan Report MR#: [id number] Acct: [id number] Name: AGUSTIN GARCIA Rep #: [id number] : 1940 F 73 From: Audie Hugo MD PCP: Status: REG CLI Study: Brain/Head w/wo Contrast Date of Exam: 06/20/13 Exam# [id number] Ordering Dr: Stephenie Burkett MD STUDY: CT [...] June 20, 2013 at 3:17:31 PM EDT [phone] Electronically Signed BW/BW If you are the referring physician and would like to consult with the radiologist who provided this interpretation, please contact To Hugo M.D. at [phone]. If this radiologist is unavailable, you will be directed to another radiologist to assist. If you are a patient with a question regarding this report, please contact your referring physician directly. Professional Interpretation Provided By: [employer], Phone , These documents contain legally protected [...] of these documents. CC: Stephenie Burkett MD Principal Biostatistician: Signed Stephenie Burkett Work Phone: Start: 05-04-2013 [...] 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 Amputation lAyson Dixon Comment on above: 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 Appendectomy Alyson Dixon Comment on above: 1950 Appendectomy Alyson Dixon Comment on above: 1950 Appendectomy Alyson Dixon Comment on above: 1950 Cholecystectomy Alyson richter Comment on above: 1995 [...] Alyson richter Comment on above: with surgery [id number] Kidney Problems Alyson richter Comment on above: with surgery [id number] Kidney Problems Alyson richter Comment on above: with surgery [id number] Ligation of fallopia n tube Alyson Messenger [...] tripple bypass 11/17/11 Operation on neck Alyson Alejo enger Comment on above: 09/12/15 Operation on neck Alyson Alejo enger Comment on above: 09/12/15 Operation on neck Alyson Alejo enger Comment on above: 09/12/15 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 Anita Shields Messenger Tonsillectomy Alyson Hoang r Comment on above: 1944 Tonsillectomy Alyson Hoang r Comment on above: 1944 Tonsillectomy Alyson Hoang r Comment on above: [address] Cl sevilla Work Phone: Plan of Treatment Date Care Activity Detail Author Start: 05-05-2019 Basic metabolic panel calcium total Metabolic Panel, Basic (64778) [facility] Work Phone: Start: 01-21-2018 [...] Phone: Start: 06-05-2017 End: 06-05-2017 MMM MMM [facility] Work Phone: Start: 05-07-2017 Provider Instructions for Treatment [facility] Work Phone: Start: 05-07-2017 Urnls dip stick/tablet reagent auto microscopy URINALYSIS, W/ MICRO (36684) [facility] Work Phone: Start: 05-07-2017 Urine albumin quantitative MICROALBUMIN: CREATININE RATIO (41960) AND (38212) [facility] Work Phone: Start: 12-25-2016 Procedure Education Eprescribed prescriptions (G8553) [facility] Work Phone: Start: 12-25-2016 Provider Instructions for Treatment [facility] Work Phone: Start: 11-03-2016 End: 11-03-2016 Follow Up Appt 9 months Follow Up Appt 9 months [facility] Work Phone: Start: 11-03-2016 End: 11-03-2016 PFM PFM [facility] Work Phone: Start: 09-25-2016 Procedure Education Eprescribed prescriptions (G8553) [facility] Work Phone: Start: 09-25-2016 Provider Instructions for Treatment [facility] Work Phone: Start: 07-02-2016 Lipid panel Lipid Panel (40653) [facility] Work Phone: Start: 06-25-2016 Provider Instructions for Treatment [facility] Work Phone: Start: 05-12-2016 End: 05-11-2015 *Hepatic Function Panel *Hepatic Function Panel [facility] Work Phone: Start: 05-12-2016 End: 05-11-2015 Lipid panel [AGGREGATE] *Lipid Profile CC PCP [facility] Work Phone: Start: 05-07-2016 End: 05-07-2016 Follow Up Appt 6 months Follow Up Appt 6 months [facility] Work Phone: Start: 05-07-2016 End: 05-07-2016 MMM MMM [facility] Work Phone: Start: 01-04-2016 Patient Education Instructions for the Patient Before and After Surgery *: instructions [facility] Work Phone: Start: 01-04-2016 Provider Instructions for Treatment [facility] Work Phone: Start: 11-29-2015 Provider Instructions for Treatment [facility] Work Phone: Start: 11-05-2015 End: 11-05-2015 Carotid duplex Carotid duplex [facility] Work Phone: Start: 11-05-2015 End: 11-05-2015 Follow Up Appt 6 months Follow Up Appt 6 months [facility] Work Phone: Start: 11-05-2015 End: 11-05-2015 Follow Up Appt Other Follow Up Appt Other [facility] Work Phone: Start: 11-05-2015 End: 11-05-2015 PFM PFM [facility] Work Phone: Start: 10-24-2015 Provider Instructions for Treatment [facility] Work Phone: Start: 10-24-2015 Blood occult fecal hgb deter ia qual feces 1-3 FECAL OCCULT- Tubes sent home (23178) [facility] Work Phone: Start: 07-26-2015 Patient Education Anxiety: emotional health [facility] Work Phone: Start: 07-26-2015 Provider Instructions for Treatment [facility] Work Phone: Start: 07-26-2015 25 hydroxy includes fractions if performed CALCIFIDIOL (35476) VIT D 25 [facility] Work Phone: Start: 07-26-2015 Urnls dip stick/tablet reagent auto microscopy URINALYSIS, W/ MICRO (38205) [facility] Work Phone: Start: 07-26-2015 Urine albumin quantitative MICROALBUMIN: CREATININE RATIO (04804) AND (81788) [facility] Work Phone: Start: 07-26-2015 Comprehensive metabolic panel METABOLIC PANEL, COMPREHENSIVE (77423) [facility] Work Phone: Start: 07-26-2015 Blood count complete auto&auto difrntl wbc CBC W/AUTO DIFF WBC (28981) [facility] Work Phone: Start: 07-26-2015 Thyrotropin Qn TSH (27675) [facility] Work Phone: Start: 07-26-2015 Lipid panel LIPID PANEL (02529) [facility] Work Phone: Start: 05-09-2015 End: 05-09-2015 Follow Up Appt 6 months Follow Up Appt 6 months [facility] Work Phone: Start: 05-09-2015 End: 10-23-2016 Follow Up Appt Other Follow Up Appt Other [facility] Work Phone: Start: 05-09-2015 End: 05-09-2015 MMM MMM [facility] Work Phone: Start: 04-26-2015 Culture bct isol&prsmptv id isolate ea urine URINE IBRAHIMA CULTURE-IDENTIFICATN (89462) [facility] Work Phone: Start: 04-19-2015 Procedure Education Eprescribed prescriptions (G8519) [facility] Work Phone: Start: 04-19-2015 Provider Instructions for Treatment [facility] Work Phone: Start: 04-19-2015 Cobalamin (Vitamin B12) mass conc VITAMIN B-12 (CYANOCOBALAMIN) (11138) [facility] Work Phone: Start: 04-19-2015 Urnls dip stick/tablet rgnt auto w/o microscopy URINALYSIS W/O MICRO (00206) [facility] Work Phone: Start: 04-19-2015 Thyrotropin Qn TSH (33271) [facility] Work Phone: Start: 04-19-2015 Urine albumin quantitative MICROALBUMIN: CREATININE RATIO (30191) AND (81252) [facility] Work Phone: Start: 04-19-2015 Comprehensive metabolic panel METABOLIC PANEL, COMPREHENSIVE (47265) [facility] Work Phone: Start: 04-19-2015 Blood count complete auto&auto difrntl wbc CBC W/AUTO DIFF WBC (98556) [facility] Work Phone: Start: 04-19-2015 Lipid panel LIPID PANEL (29838) [facility] Work Phone: Start: 04-19-2015 25 hydroxy includes fractions if performed CALCIFIDIOL (80189) VIT D 25 [facility] Work Phone: Start: 01-11-2015 Provider Instructions for Treatment [facility] Work Phone: Start: 01-11-2015 25 hydroxy includes fractions if performed Vitamin D Hydroxy (94880) [facility] Work Phone: Start: 01-11-2015 Lipid panel LIPID PANEL (47529) [facility] Work Phone: Start: 01-11-2015 Thyrotropin Qn TSH (85077) [facility] Work Phone: Start: 01-11-2015 Urnls dip stick/tablet reagent auto microscopy URINALYSIS, W/ MICRO (12265) [facility] Work Phone: Start: 01-11-2015 Urine albumin quantitative MICROALBUMIN: CREATININE RATIO (73531) AND (14967) [facility] Work Phone: Start: 01-11-2015 Comprehensive metabolic panel METABOLIC PANEL, COMPREHENSIVE (33404) [facility] Work Phone: Start: 01-11-2015 Blood count complete auto&auto difrntl wbc CBC W/AUTO DIFF WBC (09847) [facility] Work Phone: Start: 10-31-2014 Provider Instructions for Treatment *Calcium Education (KF) [facility] Work Phone: Start: 10-12-2014 Provider Instructions for Treatment [facility] Work Phone: Start: 10-10-2014 End: 10-10-2014 Electrocardiogram, complete EKG (In office) [facility] Work Phone: Start: 10-10-2014 End: 10-10-2014 Follow Up Appt 6 months Follow Up Appt 6 months [facility] Work Phone: Start: 10-10-2014 End: 10-23-2016 Follow Up Appt Other Follow Up Appt Other [facility] Work Phone: Start: 10-10-2014 End: 10-10-2014 PFM PFM [facility] Work Phone: Start: 10-09-2014 25 hydroxy includes fractions if performed Vitamin D Hydroxy (57568) [facility] Work Phone: Start: 08-31-2014 [...] Phone: Start: 04-10-2014 End: 04-10-2014 MMM MMM [facility] Work Phone: Start: 04-06-2014 Procedure Education Eprescribed prescriptions (G8553) [facility] Work Phone: Start: 04-06-2014 Provider Instructions for Treatment [facility] Work Phone: Start: 04-06-2014 Prothrombin time (PT) Coag time (PPP) PT (Prothrobim Time) (63270) [facility] Work Phone: Comment on [...] Up Appt Other Follow Up Appt Other [facility] Work Phone: Start: 12-07-2013 End: 12-07-2013 PFM PFM [facility] Work Phone: Start: 12-01-2013 Patient Education Water in diet, brief version [facility] Work Phone: Start: 12-01-2013 Provider Instructions for Treatment [facility] Work Phone: Start: 08-08-2013 End: 08-08-2013 Follow Up Appt 4 months Follow Up Appt 4 months [facility] Work Phone: Start: 08-08-2013 [...] difrntl wbc CBC, PLATELETS & AUT DIFF (43873) [facility] Work Phone: Start: 06-20-2013 CRP mass conc C-Reactive Protein (53615) [facility] Work Phone: Start: 06-20-2013 Sedimentation rate rbc non-automated Sed Rate Erythrocyte (81000) [facility] Work Phone: Start: 06-20-2013 Creatinine mass conc CREATININE BLOOD (16739) [facility] Work Phone: Start: 06-08-2013 Patient Education Flu (Influenza) *: flu shot [facility] Work Phone: Start: 05-20-2013 Provider Instructions for Treatment Reviewed Diagnostic Tests [facility] Work Phone: Start: 05-04-2013 End: 07-07-2013 *BMP *BMP [facility] Work Phone: Start: 04-27-2013 End: 04-27-2013 Pulmonary Fuction Test - complete Pulmonary Fuction Test - complete [facility] Work Phone: Start: 04-22-2013 Provider Instructions for Treatment Reviewed Diagnostic Tests [facility] Work Phone: Start: 04-19-2013 End: 04-20-2013 *BMP *BMP [facility] Work Phone: Start: 04-19-2013 End: 04-20-2013 aPTT *PTT-Partial Thromboplastin Time [facility] Work Phone: Start: 04-19-2013 End: 04-20-2013 CBC W Auto Differential panel - Blood *CBC without Diff [facility] Work Phone: Start: 04-19-2013 End: 04-20-2013 Chest x-ray X-Ray, Chest, PA & Lateral [facility] Work Phone: Start: 04-19-2013 End: 04-20-2013 Coagulation factor induced.INR assay in platelet poor plasma *PT/INR [facility] Work Phone: Start: 04-19-2013 End: 04-19-2013 Electrocardiogram, complete EKG (In office) [facility] Work Phone: Start: 04-19-2013 End: 04-19-2013 Follow Up Appt Other Follow Up Appt Other [facility] Work Phone: Start: 04-18-2013 End: 04-18-2013 Left & Right Heart Cath W/Grafts Left & Right Heart Cath W/Grafts [facility] Work Phone: Start: 04-15-2013 Patient Education Water in diet, brief version [facility] Work Phone: Start: 04-15-2013 Provider Instructions for Treatment [facility] Work Phone: Start: 03-15-2013 End: 03-09-2013 Echocardiography Echocardiogram (complete) [facility] Work Phone: Start: 02-28-2013 Provider Instructions for Treatment [facility] Work Phone: Start: 02-10-2013 End: 02-10-2013 Arterial exam Arterial exam [facility] Work Phone: Start: 02-10-2013 End: 02-10-2013 Electrocardiogram, complete EKG (In office) [facility] Work Phone: Start: 02-10-2013 End: 02-10-2013 Flecainide [Mass/volume] in Serum or Plasma *FLEC Flecainide (Tambocor) 90480 [facility] Work Phone: Start: 02-10-2013 End: 02-10-2013 Follow Up Appt 6 months Follow Up Appt 6 months [facility] Work Phone: Start: 02-10-2013 End: 08-08-2013 Lipid panel [AGGREGATE] *Lipid Profile CC PCP [facility] Work Phone: Start: 02-10-2013 End: 02-10-2013 MMM MMM [facility] Work Phone: Start: 11-15-2012 Provider [...] urine URINE IBRAHIMA CULTURE (TY COL COUNT) (90607) [facility] Work Phone: Start: 09-16-2012 Provider Instructions for Treatment Follow up in 1 month [facility] Work Phone: Start: 07-08-2012 End: 04-18-2013 *Hepatic Function Panel *Hepatic Function Panel [facility] Work Phone: Start: 07-08-2012 End: 07-09-2012 Electrocardiogram, complete EKG (In office) [facility] Work Phone: Start: 07-08-2012 End: 07-09-2012 Follow Up Appt 6 months Follow Up Appt 6 months [facility] Work Phone: Start: 07-08-2012 End: 04-18-2013 Lipid panel [AGGREGATE] *Lipid Profile [facility] Work Phone: Start: 04-12-2012 [...] 04-18-2013 *Hepatic Function Panel *Hepatic Function Panel [facility] Work Phone: Start: 01-06-2012 End: 01-06-2012 24 hour holter monitor 24 hour holter monitor [facility] Work Phone: Start: 01-06-2012 End: 01-06-2012 Electrocardiogram, complete EKG (In office) [facility] Work Phone: Start: 01-06-2012 End: 01-06-2012 Follow Up Appt 3 months Follow Up Appt 3 months [facility] Work Phone: Start: 01-06-2012 End: 01-06-2012 Follow Up Appt Other Follow Up Appt Other [facility] Work Phone: Start: 01-06-2012 End: 04-18-2013 Lipid panel [AGGREGATE] *Lipid Profile [facility] Work Phone: Start: 12-31-2011 Provider Instructions for Treatment [facility] Work Phone: Start: 12-24-2011 Fibrin dgradj products d-dimer quantitative D-Dimer (33802) [facility] Work Phone: Start: 12-24-2011 Blood count complete automated CBC (AUTO) (97419) [facility] Work Phone: Start: 12-03-2011 Culture bacterial quanttative colony count urine URINE IBRAHIMA CULTURE-TY COL COUNT (35285) [facility] Work Phone: Start: 11-26-2011 Provider Instructions for Treatment [facility] Work Phone: Start: 11-06-2011 Provider Instructions for Treatment Reviewed Diagnostic Tests [facility] Work Phone: Start: 11-04-2011 Renal function panel Renal function Panel (70881) [facility] Work Phone: Start: 10-22-2011 CRP mass conc C-Reactive Protein (99533) [facility] Work Phone: Start: 10-21-2011 Renal function panel Renal function Panel (15408) [facility] Work Phone: Start: 10-21-2011 Provider Instructions for Treatment Follow up in 2 weeks [facility] Work Phone: Start: 10-21-2011 Fibrin dgradj products d-dimer quantitative D-Dimer (24718) [facility] Work Phone: Start: 10-21-2011 Troponin I.cardiac mass conc Troponin I (08083) [facility] Work Phone: Start: 10-21-2011 Creatine kinase mb fraction only CPK MB FRACTION (19567) [facility] Work Phone: Start: 10-21-2011 Creatine kinase total CREATINE KINASE TOTAL (34229) [facility] Work Phone: Start: 10-21-2011 CRP mass conc C-Reactive Protein (09769) [facility] Work Phone: Start: 06-17-2010 Provider Instructions for Treatment [facility] Work Phone: Start: 12-13-2009 Provider Instructions for Treatment [facility] Work Phone: Start: 01-17-2009 Provider Instructions for Treatment [facility] Work Phone: Start: 01-12-2009 Provider Instructions for Treatment *ERGOCALCIFEROL DOSAGE PER SHEWMON [facility] Work Phone: Start: 01-12-2009 Nuclear Ab IF titer (S) CORTES (ANTINUCLEAR ANTIBODY) (16636) [facility] Work Phone: Start: 01-12-2009 Rheumatoid factor quantitative RHEUMATOID FACTOR-QUANT (28429) [facility] Work Phone: Start: 01-12-2009 25 hydroxy includes fractions if performed Vitamin D Hydroxy (41831) [facility] Work Phone: Comment on above: do in 3-4 months Start: 01-02-2009 Provider Instructions for Treatment [facility] Work Phone: Start: 01-02-2009 25 hydroxy includes fractions if performed Vitamin D Hydroxy (21795) [facility] Work Phone: Start: 01-02-2009 1 25 dihydroxy includes fractions if performed VITAMIN D, 1, 25-DIHYDROXY (17826) [facility] Work Phone: Start: 01-02-2009 Thyrotropin Qn TSH (29852) [facility] Work Phone: Start: 01-02-2009 Protein electrophoretic fractj&quantj serum [facility] Work Phone: Start: 01-02-2009 Sedimentation rate rbc non-automated SED RATE ERYTHROCYTE (02338) [facility] Work Phone: Start: 01-02-2009 Phosphate mass conc PHOSPHORUS (08053) [facility] Work Phone: Start: 01-02-2009 Assay of parathormone PARATHORMONE (39469) [facility] Work Phone: Start: 01-02-2009 Hepatic function panel HEPATIC FUNCTION PANEL (86033) [facility] Work Phone: Start: 01-02-2009 Blood count complete automated CBC (AUTO) (83716) [facility] Work Phone: Start: 01-02-2009 Calcium mass conc CALCIUM SERUM (43070) [facility] Work Phone: Start: 01-02-2009 CRP mass conc C-REACTIVE PROTEIN (00190) [facility] Work Phone: Start: 01-02-2009 ALP enzyme act/vol ALKALINE PHOSPHATASE (98577) [facility] Work Phone: Start: 10-04-2008 Provider Instructions for Treatment [facility] Work Phone: Start: 10-04-2008 Lipid panel LIPID PANEL (54942) [facility] Work Phone: Start: 09-21-2008 Patient Education Water in diet, brief version [facility] Work Phone: Start: 09-21-2008 Provider Instructions for Treatment [facility] Work Phone: Start: 08-24-2008 Provider Instructions for Treatment [facility] Work Phone: Start: 06-28-2008 Provider Instructions for Treatment [facility] Work Phone: Patient Education HYPERLIPIDEMIA [facility] Work Phone: [facility] [...] Immunizations Immunization Date Immunization Notes Care Provider Fa [facility] 06-13-2009 influenza, seasonal, injectable Mirella Nicole [facility] Work Phone: Comment on above: Lot #[id number]-left deltoidgiven by:[facility] 06-28-2008 influenza, seasonal, injectable Mirella Mccracken [facility] Work Phone: Comment on above: done km 0.5cc given im ;lt arm lot [id number] exp 02-20 Payers Date Payer Category Payer Self-pay [id number] 2024 Unknown [id number] 2024 Unknown [id number] 2016 Unknown [id number] 2004 Medicare [id number] Medicare MEDICARE PART A B [id number] Private Health Insurance [id number] Unknown Unknown [id number] 2.16.840.1.719220.3.579.2.462 Unknown [id number] 2.16.840.1.268586.3.579.2.462 Unknown [id number] 2.16.840.1.811691.3.579.2.462 Unknown [id number] 2.16.840.1.911332.3.579.2.462 Unknown [id number] 2.840.1.419994.3.579.2.462 Unknown [id number] 2.840.1.122379.3.579.2.462 Unknown [id number] 2.840.1.559052.3.579.2.462 Unknown [id number] 2.840.1.391244.3.579.2.462 Unknown [id number] 2.840.1.194942.3.579.2.462 Unknown [id number] 2.840.1.323535.3.579.2.462 Unknown [id number] 2.840.1.461260.3.579.2.462 Unknown [id number] 2.840.1.654729.3.579.2.462 Unknown [id number] 2.840.1.989639.3.579.2.462 Unknown [id number] 2.840.1.508315.3.579.2.462 Unknown [id number] 2.840.1.019308.3.579.2.462 Unknown [id number] 2..840.1.734757.3.579.2.462 Unknown [id number] 2.16.840.1.369077.3.579.2.462 Unknown [id number] 2.16.840.1.243875.3.579.2.462 Unknown [id number] 2.840.1.691918.3.579.2.462 Unknown [id number] 2.16.840.1.592073.3.579.2.462 Unknown [id number] 2.16.840.1.162529.3.579.2.462 Unknown [id number] 2.16.840.1.498285.3.579.2.462 Unknown [id number] 2.16.840.1.647014.3.579.2.462 Unknown [id number] 2.16.840.1.325828.3.579.2.462 Unknown [id number] 2.16.840.1.610769.3.579.2.462 Unknown [id number] 2.16.840.1.194279.3.579.2.462 Unknown [id number] 2.16.840.1.810941.3.579.2.462 Unknown [id number] 2.16.840.1.502555.3.579.2.462 Unknown [id number] 2.16.840.1.386712.3.579.2.462 Unknown [id number] 2.16.840.1.752767.3.579.2.462 Unknown [id number] 2.16.840.1.329179.3.579.2.462 Unknown [id number] 2.16.840.1.152835.3.579.2.462 Unknown [id number] 2.16.840.1.454297.3.579.2.462 Unknown [id number] 2.16.840.1.699988.3.579.2.462 Unknown [id number] 2.16.840.1.938393.3.579.2.462 Unknown [id number] 2.16.840.1.806154.3.579.2.462 Social History Date Type Detail Facility Caffeine Use [facility] smoker [facility] Work Phone: Comment on above: 2 per week 3-4 miles QD walking , heterosexua l, celibate Retired Tobacco use: Never smoker. [facility] Work Phone: Start: 09-30-2021 End: 07-09-2023 Tobacco smoking status NHIS Unknown if ever smoked [facility] Start: 06-12-2021 None [facility] Start: 06-12-2021 Homeless [facility] Start: 06-12-2021 Non-smoker [facility] Start: 1940 Sex Assigned At Female [facility] Start: 02-07-2024 End: 03-02-2025 Tobacco smoking status NHIS Never smoked tobacco (finding) [facility] Start: 12-14-2024 End: 01-04-2025 Sex Female (finding) [facility] Medical Equipment Procedure Code Equipment [...] Evaluation note No assessment information availa ble [facility] Work Phone: Evaluation note Note Date & Type Note Facility Evaluation note Diagnosis Onset Date Pes anserinus bursitis of left knee noneactive Osteoarthritis of left knee noneactive [facility] Work Phone: Evaluation note Note Date & Type Note Facility Evaluation note Diagnosis Onset Date Pes anserinus bursitis of left knee noneactive Osteoarthritis of left knee noneactive Pes anserinus bursitis of left knee noneactive Osteoarthritis of left knee noneactive [facility] Work Phone: Evaluation note Note Date & Type Note Facility Evaluation note Diagnosis Onset Date Osteoarthritis of left knee noneactive Osteoarthritis of left knee noneactive Osteoarthritis of left knee noneactive Osteoarthritis of left knee noneactive [facility] Work Phone: Reason for referral (narrative) Note Date & Type Note Facility Reason for referral (narrative) No reason for referral information available [facility] Work Phone: Family History No [...] Instructions for Treatment How to access health [facility] [employer] online Indication:Hyperlipidemia Start:19-Apr-2015 Instruction Type:Patient Education How [...] Instructions for Treatment How to access health [facility] [employer] online Indication:Hyperlipidemia Start:19-Apr-2015 Instruction Type:Patient Education How to access health informa tion online - Detail Indication:Hyperlipidemia Start:19-Apr-2015 Instruction Type:Patient Education Patient Instructions Indication:Hyperlipidemia Start:19-Apr-2015 Instruction Type:Provider Instructions for Treatment cardiovascular counseling Indication:Coronary artery disease Start:12-Oct-2014 Instruction Type:Provider Instructions for Treatment Patient Instructions Indication:Headache Start:12-Oct-2014 Instruction Type:Provider Instructions for Treatment Patient Instructions Indication:Headache Start:31-Aug-2014 Instruction Type:Provider Instructions for Treatment How to access health informa [employer] online Indication:Coronary artery disease Start:13-Jul-2014 Instruction Type:Patient Education How to access health informa tion online - Detail Indication:Coronary artery disease Start:13-Jul-2014 Instruction Type:Patient Education Patient Instructions Indication:Coronary artery disease Start:13-Jul-2014 Instruction Type:Provider Instructions for Treatment Patient Instructions Indication:SYMPTOMS INVOLVING URINARY SYSTEM; DYSURIA Start:17-Apr-2014 Instruction Type:Provider Instructions for Treatment How to access health [facility] [employer] online Indication:Coronary artery disease Start:06-Apr-2014 Instruction Type:Patient [...] Yes May 27, 2019 6:37pm [employer] Consultant Yes May 6:37pm Advance Directive Response Recorded Date/ Time Advance Directives Yes May 2:39pm Living Will Yes June 04, 2022 2:39pm [employer] Consultant Yes May 2:39pm Advance Directive Response Recorded Date/ Time Advance Directives Yes July 9:15am Living Will Yes August 01, 9:15am [employer] Consultant Yes August 01, 2022 9:15am Advance Directive Response Recorded Date/ Time Advance Directives Yes July 10:15am Living Will Yes August 01 10:15am [employer] Consultant Yes August 01, 2022 10:15am Advance Directive Response Recorded Date/ Time Advance Directives Yes July 09, 2023 8:23am Living Will Yes July 09 8:23am [employer] Consultant Yes July 09, 2023 8:23am Advance Directive Response Recorded Date/ Time Advance Directives Yes July 09, 2023 9:23am Living Will Yes July 09 9:23am [employer] Consultant Yes July 09, 2023 9:23am Advance Directive Response Recorded Date/ Time Advance Directives Yes July 09, 2023 9:23am Advance Directive Response Recorded Date/ Time Advance Directives Yes March 02 6:29pm Chief Complaint and Reason for Visit Chief Complaint Right hip xray PENITENTIARY LABWORK MONTHLY EXAM Chief Complaint PENITENTIARY LABWORK MONTHLY EXAM Chief Complaint PENITENTIARY LABWORK NEW SYMPTOMS/CONCERN LABWORK MONTHLY EXAM Chief Complaint MONTHLY EXAM MONTH EXAM PENITENTIARY LAB WORK LEFT KNEE Rm 5 xray Reason for Visit Pes anserinus bursit is of left knee Osteoarthritis of left knee Chief Complaint PENITENTIARY LAB WOR K LEFT KNEE Rm 5 xray NEW CONCERN/PROBLEM LEFT KNEE room 1 MONTHLY EXAM PENITENTIARY LABWORK MONTHLY Reason for Visit Pes anserinus bursit is of left knee Osteoarthritis of left knee Pes anserinus bursitis of left knee Osteoarthritis of left knee Chief Complaint NEW CONCERN/PROBLEM LEFT KNEE room 1 MONTHLY EXAM PENITENTIARY LABWORK MONTHLY MONTHLY EXAM NEW PROBLEM PENITENTIARY LABWORK Reason for Visit Pes anserinus bursit is of left knee Osteoarthritis of left knee Chief Complaint PENITENTIARY LABWORK MONTHLY EXAM PENITENTIARY LAB WORK MONTHLY EXAM NEW CONCERN left knee Reason for Visit Pes anserinus bursit is of left knee Osteoarthritis of left knee Chief Complaint LEFT KNEE RM 5 LABWORK LEFT KNEE LEFT KNEE LEFT KNEE MONTHLY VISIT MONTHLY EXAM PENITENTIARY LAB WORK Reason for Visit Osteoarthritis of le ft knee Osteoarthritis of left knee Osteoarthritis of left knee Osteoarthritis of left knee Chief Complaint PENITENTIARY LAB WOR K MONTHLY EXAM - MD MONTHLY EXAM PENITENTIARY LAB WORK Chief Complaint MONTHLY EXAM MONTHLY EXAM MD PENITENTIARY LAB WORK MONTHLY EXAM MONTHLY EXAM MD Chief Complaint Admit Date LABWORK August 16, 2024 5 :00am PENITENTIARY LAB WORK September 16, 2024 5:00am MONTHLY EXAM September 20, 2024 7: 33pm LABWORK October 14, 2024 1 :00am PENITENTIARY LAB WORK October 17, 2024 5:00am MONTHLY EXAM October 27, 2024 11:58am LABWORK November 14, 2024 5:00 am Chief Complaint Admit Date PENITENTIARY LAB WORK September 16, 2024 5:00am MONTHLY EXAM September 20, 2024 7: 33pm LABWORK October 14, 2024 1 :00am PENITENTIARY LAB WORK October 17, 2024 5:00am MONTHLY EXAM October 27, 2024 11:58am LABWORK November 14, 2024 5:00 am MONTHLY EXAM November 15, 2024 5:36 pm LABWORK December 14, 2024 5:00 am Chief Complaint Admit Date LABWORK October 14, 2024 1 :00am PENITENTIARY LAB WORK October 17, 2024 5:00am MONTHLY EXAM October 27, 2024 11:58am LABWORK November 14, 2024 5:00 am MONTHLY EXAM November 15, 2024 5:36 pm LABWORK December 14, 2024 5:00 am LABWORK January 14, 2025 8:25am Chief Complaint Admit Date LABWORK October 14, 2024 1 :00am PENITENTIARY LAB WORK October 17, 2024 5:00am MONTHLY EXAM October 27, 2024 11:58am LABWORK November 14, 2024 5:00 am MONTHLY EXAM November 15, 2024 5:36 pm LABWORK December 14, 2024 5:00 am PENITENTIARY LAB WORK January 12, 2025 5:00 am LABWORK January 14, 2025 8:25am LABWORK January 18, 2025 5:00am Chief Complaint Admit Date LABWORK November 14, 2024 5:00 am MONTHLY EXAM November 15, 2024 5:36 pm LABWORK December 14, 2024 5:00 am Monthly Exam December 16, 2024 5:46 pm PENITENTIARY LAB WORK January 12, 2025 5:00 am LABWORK January 14, 2025 8:25am LABWORK January 18, 2025 5:00am PENITENTIARY LAB WORK January 23, 2025 5:0 0am Chief Complaint Admit Date LABWORK December 14, 2024 5:00 am Monthly Exam December 16, 2024 5:46 pm PENITENTIARY LAB WORK January 12, 2025 5:00 am LABWORK January 14, 2025 8:25am LABWORK January 18, 2025 5:00am PENITENTIARY LAB WORK January 23, 2025 5:0 0am MONTHLY EXAM January 31, 2025 4:00p m PENITENTIARY LAB WORK February 13, 2025 5:0 0am LABWORK February 27, 2025 5:00 am Chief Complaint Admit Date LABWORK December 14, 2024 5:00 am Monthly Exam December 16, 2024 5:46 pm PENITENTIARY LAB WORK January 12, 2025 5:00 am LABWORK January 14, 2025 8:25am LABWORK January 18, 2025 5:00am PENITENTIARY LAB WORK January 23, 2025 5:0 0am MONTHLY EXAM January 31, 2025 4:00p m PENITENTIARY LAB WORK February 13, 2025 5:0 0am MONTHLY EXAM February 23, 2025 9:45 am LABWORK February 27, 2025 5:00 am PENITENTIARY LAB WORK March 06, 2025 3: 47pm PENITENTIARY LAB WORK March 14, 2025 5:0 0am Chief Complaint Admit Date LABWORK December 14, 2024 5:00 am Monthly Exam December 16, 2024 5:46 pm PENITENTIARY LAB WORK January 12, 2025 5:00 am LABWORK January 14, 2025 8:25am LABWORK January 18, 2025 5:00am PENITENTIARY LAB WORK January 23, 2025 5:0 0am MONTHLY EXAM January 31, 2025 4:00p m PENITENTIARY LAB WORK February 13, 2025 5:0 0am MONTHLY EXAM February 23, 2025 9:45 am LABWORK February 27, 2025 5:00 am NEW CONCERN March 06, 2025 3:00 pm PENITENTIARY LAB WORK March 06, 2025 3: 47pm PENITENTIARY LAB WORK March 14, 2025 5:0 0am Chief Complaint Admit Date PENITENTIARY LAB WORK January 12, 2025 5:00 am LABWORK January 14, 2025 8:25am LABWORK January 18, 2025 5:00am PENITENTIARY LAB WORK January 23, 2025 5:0 0am MONTHLY EXAM January 31, 2025 4:00p m PENITENTIARY LAB WORK February 13, 2025 5:0 0am MONTHLY EXAM February 23, 2025 9:45 am LABWORK February 27, 2025 5:00 am NEW CONCERN March 06, 2025 3:00 pm PENITENTIARY LAB WORK March 06, 2025 3: 47pm PENITENTIARY LAB WORK March 14, 2025 5:0 0am New Concern March 20, 2025 4:08p m LABWORK April 14, 2025 5:0 0am Chief Complaint Admit Date PENITENTIARY LAB WORK January 12, 2025 5:00 am LABWORK January 14, 2025 8:25am LABWORK January 18, 2025 5:00am PENITENTIARY LAB WORK January 23, 2025 5:0 0am MONTHLY EXAM January 31, 2025 4:00p m PENITENTIARY LAB WORK February 13, 2025 5:0 0am MONTHLY EXAM February 23, 2025 9:45 am LABWORK February 27, 2025 5:00 am NEW CONCERN March 06, 2025 3:00 pm PENITENTIARY LAB WORK March 06, 2025 3: 47pm PENITENTIARY LAB WORK March 14, 2025 5:0 0am Monthly Exam March 14, 2025 10:00 pm New Concern March 20, 2025 4:08p m LABWORK April 14, 2025 5:0 0am Chief Complaint Admit Date LABWORK January 18, 2025 5:00am PENITENTIARY LAB WORK January 23, 2025 5:0 0am MONTHLY EXAM January 31, 2025 4:00p m PENITENTIARY LAB WORK February 13, 2025 5:0 0am MONTHLY EXAM February 23, 2025 9:45 am LABWORK February 27, 2025 5:00 am NEW CONCERN March 06, 2025 3:00 pm PENITENTIARY LAB WORK March 06, 2025 3: 47pm PENITENTIARY LAB WORK March 14, 2025 5:0 0am Monthly Exam March 14, 2025 10:00 pm New Concern March 20, 2025 4:08p m LABWORK April 14, 2025 5:0 0am MONTHLY EXAM April 20, 2025 11: 08am Additional Source Comments INFORMATION SOURCE (unrecogn ized section and content) DATE CREATED AUTHOR 10/03/2019 [facility] ([place]) DATE CREATED AUTHOR AUTHOR'S ORGANIZ ATION 05/17/2025 [facility] Goals (unrecognized section and content) Goals [...] Care Provider, Referrin g Provider Active TRUDY aGry Attending Provider Active Team Status: Inactive Member [...] MD Primary Care Provider Active Zeina Balbuena BRIM BLOCKER, BRIM BLOCKER-C Attending Provider Active Team Status: Inactive Member [...] Provider Active Start: September 16, 2024 Yesika VCIENTE MD Attending Provider Active Start: September 16, [...] 2024 End: December 16, 2024 Zeina Balbuena BRIM BLOCKER, BRIM BLOCKER-C Attending Provider Active Start: December 16, 2024 [...] 2024 End: December 16, 2024 Zeina Balbuena BRIM BLOCKER, BRIM BLOCKER-C Attending Provider Active Start: December 16, 2024 [...] 2025 End: March 06, 2025 Zeina Balbuena BRIM BLOCKER, BRIM BLOCKER-C Attending Provider Active Start: March 06, 2025 [...] Care Provider Active Start: January 23, 2025 Zeina VICENTE NP-C Attending Provider Active Start: January 23, 2025 [...] Active Start: February 13, 2025 Team Status: Inactive Member Role/Relationship Status [...] Active Start: February 27, 2025 Team Status: Inactive Member Role/Relationship Status Dates Dr. Yesika Faust MD Primary Care Provider Active Start: March 06, 2025 End: March 06, 2025 Zeina Balbuena NP BRIM BLOCKER-C Attending Provider Active Start: March 06, 2025 End: March 06, 2025 Team Status: Inactive Member Role/Relationship Status Dates Dr. Yesika Faust MD Primary Care Provider Active Start: March 20, 2025 End: March 20, 2025 Zeina Balbuena NP, BRIM BLOCKER-C Attending Provider Active Start: March 20, 2025 End: March 20, 2025 Team Status: Active Member Role/Relationship Status Dates Dr. Yesika Faust MD Primary Care Provider Active Start: April 14, 2025 Yesika VICENTE MD Attending Provider Active Start: April 14, 2025 Team Status: Inactive Member Role/Relationship Status Dates Dr. Yesika Faust MD Primary Care Provider Active Start: March 14, 2025 End: March 14, 2025 Dr. Yesika Faust MD Attending Provider Active Start: March 14, 2025 End: March 14, 2025 Team Status: Inactive Member Role/Relationship Status Dates Dr. Yesika Faust MD Primary Care Provider Active Start: March 20, 2025 End: March 20, 2025 ADRIANE Rodrigues NPC Attending Provider Active Start: March 20, 2025 End: March 20, 2025 Team Status: Active Member Role/Relationship Status Dates Dr. Yesika Faust MD Primary Care Provider Active Start: April 14, 2025 Yesika VICENTE MD Attending Provider Active Start: April 14, 2025 Team Status: Inactive Member Role/Relationship [...] Active Start: February 13, 2025 Team Status: Inactive Member Role/Relationship Status [...] Active Start: February 27, 2025 Team Status: Inactive Member Role/Relationship Status Dates Dr. Yesika Faust MD Primary Care Provider Active Start: March 06, 2025 End: March 06, 2025 Zeina Balbuena BRIM BLOCKER, BRIM BLOCKER-C Attending Provider Active Start: March 06, 2025 [...] Care Provider Active Start: March 14, 2025 End: March 14, 2025 Dr. Yesika Faust MD Attending Provider Active Start: March 14, 2025 End: March 14, 2025 Team Status: Inactive Member Role/Relationship Status Dates Dr. Yesika Faust MD Primary Care Provider Active Start: March 20, 2025 End: March 20, 2025 Zeina Balbuena NP BRIM BLOCKER-C Attending Provider Active Start: March 20, 2025 End: March 20, 2025 Team Status: Active Member Role/Relationship Status Dates Dr. Yesika Faust MD Primary Care Provider Active Start: April 14, 2025 Yesika VICENTE MD Attending Provider Active Start: April 14, 2025 Team Status: Inactive Member Role/Relationship Status Dates Dr. Yesika Faust MD Primary Care Provider Active Start: April 20, 2025 End: April 20, 2025 TRUDY Blanco Attending Provider Active St art: April 20, 2025 End: April 20, 2025 Team Status: Active Member Role/Relationship Status Dates Dr. Yesika Faust MD Primary Care Provider Active Start: May 16, 2025 Yesika VICENTE MD Attending Provider Active Start: May 16, 2025 FOR RECORDS PERTAINING TO PATIENTS WHO [...] BE BASED ON THE PRIMARY CLINICAL RECORDS. [facility]. provides no warranty or guarantee of the accuracy or completeness of information in this document.
[2025-05-22 09:28] LABS: Hematocrit 41.9 % (37-47); Hemoglobin 13.9 g/dL (12.0-15.0); Immature Granulocytes Count 0.020 X10^3/uL (0.0-0.0); Mean Corp Hgb Conc 33.2 g/dL (32-36); Mean Corpuscular Volume 95.0 fL (81-99); Mean Platelet Vol. 10.5 fl (6.2-12.0); NRBC Flagged by Analyzer 0 % (0-5); Platelet Count 312 K/mm3 (150-450); RBC Distribution Width CV 12.7 % (11.6-14.6); RBC Distribution Width SD 44.8 fl (35.1-43.9); Red Blood Count 4.41 M/mm3 (4.2-5.4); White Blood Count 6.2 K/mm3 (4.4-11.0)
[2025-05-22 09:54] LABS: AST(SGOT) 17 U/L (<=31); Alanine Aminotransfer ALT/SGPT 8 U/L (<=34); Albumin, Serum 3.8 g/dL (3.4-4.8); Alkaline Phosphatase 204 U/L (35-104); Anion Gap 11 (5-15); BUN 19 mg/dL (4-19); BUN/Creat Ratio 32.0 RATIO (10-20); Bilirubin, Direct 0.09 mg/dL (0.00-0.30); Calcium,Total 9.6 mg/dL (7.6-11.0); Carbon Dioxide 27.6 mmol/L (21.0-32.0); Chloride 104 mmol/L (98-108); Globulin 2.8 g/dL (2.2-4.2); Glucose 89 mg/dL (70-99); Potassium 3.9 mmol/L (3.3-5.1)
== END ==
LOC: OLS.WHLCAR 05:00
PROVIDERS: PCP Internal Medicine; Visit Provider Internal Medicine
DX: I10 Essential (primary) hypertension (principal); I25.10 Atherosclerotic heart disease of native coronary artery without angina pectoris; R53.82 Chronic fatigue, unspecified
CPT/HCPCS: 36415; 80048; 80076; 85025

== ENCOUNTER → 2025-06-19 | Outpatient (REF) | payer MEDICARE, MEDICAID, SELFPAY ==
--- OUTSIDE RECORDS SUMMARY | 2025-06-19 07:21 | XMS RPT_ITS | CCD ---
Author Organization [facility] Inform ion Partnership [facility] Care Team Providers Care Produce Wrapper Name Role Phone Hung Davison Unavailable Unavailable NicoleMirella jiang Unavailable Armando Gutierrez Unavailable [facility], [facility] Unavailable Art Curry Unavailable Alba Sargent Unavailable Amita Antoine Unavailable [phone] Dick Morris Unavailable [facility] Unavailable Kya Valdivia Unavailable Joe Skinner Unavailable Alyson Dixon Unavailable Unavailable Unavailable Unavailable TRUDY Chambers Attending Provider Dr. Cl Tsang Primary Care Provider MD Cl Tsang Referring Provider Unavailable Dr. Thom Montiel Attending Provider TRUDY Chambers Referring Provider Esha RING CUTTER LATHE OPERATOR, RING CUTTER LATHE OPERATOR-C Zeina Attending Provider Dr. Cl Williamson Primary Care Provider Dr. Cl Tsang Primary Care Provider Ehsa RING CUTTER LATHE OPERATOR, RING CUTTER LATHE OPERATOR-C Zeina Attending Provider Dr. Cl Williamson Primary Care Provider Esha RING CUTTER LATHE OPERATOR, RING CUTTER LATHE OPERATOR-C Zeina Attending Provider Dr. Cl Williamson Referring Provider TRUDY Chambers Attending Provider [phone] Dr. Thom Montiel Attending Provider Dr. Cl Tsang Primary Care Provider Dr. Cl Tsang Referring Provider TRUDY Chambers Attending Provider [phone] Dr. Thom Montiel Attending Provider Esha RING CUTTER LATHE OPERATOR, RING CUTTER LATHE OPERATOR-C Zeina Attending Provider Dr. Tomas Humphrey Attending Provider [phone] Dr. Yesika Faust Attending Provider [phone] Dr. Cl Tsang Primary Care Provider Dr. Cl Tsang Referring Provider Dr. Thom Montiel Attending Provider [phone] Cl Tsang Primary Care Provider Esha RING CUTTER LATHE OPERATOR, RING CUTTER LATHE OPERATOR-Lio Pastrnaa Attending Provider Dr. Yesika Reed Attending Provider [phone] Dr. Cl Tsang Referring Provider TRUDY Chambers Attending Provider [phone] Dr. Cl Tsang Primary Care Provider Dr. Cl Tsang Referring Provider TRUDY Chambers Attending Provider [phone] Dr. Thom Montiel Attending Provider [phone] Esha RING CUTTER LATHE OPERATOR, RING CUTTER LATHE OPERATOR-C Zeina Attending Provider Dr. Yesika Reed Attending Provider [phone] Dr. Cl Tsang Primary Care Provider Dr. Yesika Faust Attending Provider [phone] TRUDY Parada Attending Provider [phone] Dr. Cl Tsang Primary Care Provider Dr. Yesika Faust Attending Provider [phone] Hawa RING CUTTER LATHE OPERATOR-C Carmen Attending Provider [phone] Christianne GE, Dr. Napoles Primary Care Provider Yesika Faust MD Attending Provider Unavailchristian Faust MD, Dr. Napoles Attending Provider [phone] Miguel Parada Attending Provider Christianne GE, Dr. Napoles Primary Care Provider Yesika Faust MD Attending Provider Unavailchristian Faust MD, Dr. Napoles Primary Care Provider Yesika Faust MD Attending Provider Unavailchristian Faust MD, Dr. Napoles Attending Provider [phone] Esha RING CUTTER LATHE OPERATOR-CZeina Attending Provider [phone] Christianne GE, Dr. Napoles Primary Care Provider Yesika Faust MD Attending Provider Unavaila raffi Balbuena RING CUTTER LATHE OPERATOR-CZenia Attending Provider Christianne GE, Dr. Napoles Primary Care Provider Yesika Faust MD Attending Provider Unavailchristian Faust MD, Dr. Napoles Attending Provider [phone] Miguel Parada Attending Provider Christianne GE, Dr. Napoles Primary Care Provider Yesika Faust MD Attending Provider Unavaila raffi Balbuena RING CUTTER LATHE OPERATOR-CZeina Attending Provider Christianne GE, Dr. Napoles Primary Care Provider Yesika Faust MD Attending Provider Unavaila Yesika Rutherford Primary Care Unavailable TickZeina Quan Attending Unavailable Yesika Negron Attending Unavailabl e Yesika Faust Primary Care Unavailable Yesika Negron Attending Unavailabl e Oleghe, Efewongbe [...] Unavailable Oleghe, Efewongbe Primary Care Unavailable Tickton RING CUTTER LATHE OPERATOR, Zeina Attending Unavailable Oleghe, Efewongbe Primary Care Unavailable Oleghe, Efewongbe Primary Care Unavailable Tickton RING CUTTER LATHE OPERATOR, Zeina Attending Unavailable Oleghe OLS, Efewongbe Attending Unavailabl e Oleghe, Efewongbe Primary Care Unavailable Oleghe OLS, Efewongbe Attending Unavailabl e Oleghe, Efewongbe Primary Care Unavailable Oleghe, Efewongbe Primary Care Unavailable Oleghe, Efewongbe Attending Unavailable Oleghe OLS, Efewongbe Attending Unavailabl e Oleghe, Efewongbe Primary Care Unavailable Oleghe, Efewongbe Primary Care Unavailable Esha RING CUTTER LATHE OPERATOR, Zeina Attending Unavailable Oleghe, Efewongbe Primary Care Unavailable Esha RING CUTTER LATHE OPERATOR, Zeina Attending Unavailable Oleghe, Efewongbe Primary Care Unavailable Miguel Parada Attending Unavailable Oleghe, Efewongbe Primary Care Unavailable Oleghe, Efewongbe Attending Unavailable Oleghe, Efewongbe Primary Care Unavailable Miguel Parada Attending Unavailable Oleghe, Efewongbe Primary Care Unavailable Esha RING CUTTER LATHE OPERATOR, Zeina Attending Unavailable Carmen Shaikh Attending Unavailable Oleghe, Efewongbe Primary Care Unavailable Oleghe, Efewongbe Primary Care Unavailable Esha RING CUTTER LATHE OPERATOR, Zeina Attending Unavailable Oleghe, Efewongbe Attending Unavailable Oleghe, Efewongbe Primary Care Unavailable Oleghe OLS, Efewongbe Attending Unavailabl e Oleghe, Efewongbe Primary Care Unavailable Allergies Allergy Classification Reported Allergen(s) Allergy Type Date of Onset Reaction(s) Facility (2 sources) acetaminophen / HYDROcodone; Translations: [VICODIN] allergy to substance 05-08-20 11 [facility] Work Phone: (20 sources) HYDROcodone; Translations: [HYDROCODONE] allergy to substance 12-30-19 12 Other [facility] Work Phone: (1 source) Sulfonamides (Antibiotic) drug allergy [facility] Work Phone: (18 sources) Acetaminophen [...] Phone: (18 sources) Acetaminophen Drug Allergy 09-01-20 Other [facility] (18 sources) Sulfamethoxazole Drug Allergy 09-01-20 Other [facility] (1 source) Acetaminophen Drug Allergy 02-07-20 [facility] Repository (1 source) Sulfamethoxazole Drug Allergy 02-07-20 [facility] Repository Medications Current Medications Medication Drug Class(es) [...] TABS One tablet by mouth daily ASPIRIN [id number] Kaelyn Ellis RN Start: 11-12-2011 End: 11-12-2011 ASPIRIN LOW DOSE, 81MG (Oral Tablet Delayed Release) [address] qd for 0 days Quantity: 30 {Tablet_DR} Refills: 0 Ordered: 12-Nov-2011 Mirella Mccracken DO, DO, Kathleen Start : 12-Nov-2011 End : 12-Nov-2011 Discontinued End: 04-12-2012 take 1 tablet by mouth once daily ASPIRIN EC 81 MG TBEC One tablet by mouth daily ASPIRIN [id number] Jose Vargas MD cloNIDine hydrochloride 0.1 mg [...] health care facility 8.6 mg oral tablet (11 sources) Start: [...] 12:00am Start: 02-07-2024 take 1 capsule by mo uth once daily Duloxetine 60 mg capsule,delayed release(DR/EC) [...] One tablet by mouth daily DULOXETINE HCL [id number] Jose Vargas MD Comment on above: substitute [...] Start: 04-09-2023 take 1 capsule by mo [facility] every six hours as needed for pain [...] 2021 1:00am September 30, 2024 5:08pm Vit C,P-Zb-Towqo-Lutein-Zeax an (10 sources) Start: 05-13-2019 Vit C,E-Zn-Leather Heel Breaster if-Cocxzt-Ynxhwe Active 1 EACH PO DAILY May 13, 2019 9:27am Start: 05-13-2019 End: 05-21-2023 Vit C,I-Ra-Qcxek-Lutein-Zeax an Discontinued 1 EACH PO DAILY May 13, 2019 12:00am May 21, 2023 10:07am Start: 05-13-2019 End: 05-21-2023 Vit C,U-Ix-Ydcmu-Lutein-Zeax an Discontinued 1 EACH PO DAILY May 12, 2019 11:00pm May 21, 2023 9:07am Start: 05-13-2019 Vit C,E-Zn-Leather Heel Breaster hm-Firros-Vndhjg Active 1 EACH PO DAILY May 12, 2019 11:00pm Start: 05-13-2019 Vit C,E-Zn-Leather Heel Breaster ju-Iizbka-Jzltxm Active 1 EACH PO DAILY May 13, 2019 12:00am Completed/Discontinued Medications Medication Drug Class(es) Dates Sig (Normalized) Sig (Original) HYDROCODONE-ACETAM INOPHEN (2 sources) Opioid Agonist Start: 05-07-2016 take 1 tablet by mouth once daily at bedtime NORCO 5-325 MG TABS One tablet by mouth daily @ bedtime HYDROCODONE-ACETAMI NOPHEN [id number] Jose Vargas MD Start: 05-07-2016 End: 06-05-2017 take 1 tablet by mouth once daily at bedtime NORCO 5-325 MG TABS One tablet by mouth daily @ bedtime HYDROCODONE-ACETAMINOPHEN [id number] Jose Vargas MD acetaminophen 325 mg / [...] PERCOCET 5-325 MG TABS As needed OXYCODONE-ACETAMINOPHEN [id number] Kaelyn Ellis RN Start: 12-07-2013 PERCOCET 5-325 MG TABS As needed OXYCODONE-ACETAMINOPHEN [id number] Zaria Trevino PA-C Start: 12-07-2013 End: 11-05-2015 PERCOCET 5-325 MG TABS As ne eded OXYCODONE-ACETAMINOPHEN [id number] Zaria Trevino PA-C Start: 02-10-2013 PERCOCET 10-32 5 MG TABS As needed OXYCODONE-ACETAMINOPHEN [id number] Jose Vargas MD Comment on above: thirty [...] One tablet by mouth daily AMIODARONE HCL [id number] Jose Vargas MD Start: 11-25-2011 take 1 tablet by jeffry th twice daily AMIODARONE HCL 200 MG TABS One tablet by mouth twice daily AMIODARONE HCL [id number] Jose Vargas MD amoxicillin 500 mg oral [...] One tablet by mouth daily ATORVASTATIN CALCIUM [id number] Zaria Trevino PA-C Start: 11-25-2011 End: 04-06-2014 [...] tablet by mouth daily CALCIUM CARBONATE TABS [id number] Dick Morris DO calcium carbonate / vitamin D (2 sources) Start: 01-06-2012 take 1 tablet by mouth once daily CALCIUM + D 600-200 MG-UNIT TABS One tablet by mouth daily CALCIUM CARBONATE-VITAMIN D [id number] Jose Vargas MD Start: 01-06-2012 End: 04-12-2012 take 1 tablet by mouth once daily CALCIUM + D 600-200 MG-UNIT TABS One tablet by mouth daily CALCIUM CARBONATE-VITAMIN D [id number] Jose Vargas MD casanthranol 30 mg / [...] Quantity: 30 {Capsule} Refills: 0 Ordered: 11-Mar-2012 Kaley Burkett MD Start : 11-Mar-2012 End : [...] capsule by mouth every week VITAMIN D3, [id number] (Oral Capsule) 1 (one) Capsule Capsule q week for 0 days Quantity: 4 {Capsule} Refills: 3 Ordered: 29-Nov-2015 Alyson Dixon LPN Start : 13-Jul-2014 End : 29-Nov-2015 Inactive Start: 01-06-2012 End: 04-12-2012 take 1 tablet by mouth once daily VITAMIN D 2000 UNIT TABS One tablet by mouth daily CHOLECALCIFEROL [id number] Jose Vargas MD ciprofloxacin 500 mg oral [...] One tablet by mouth daily CRANBERRY CAPS [id number] Zaria Trevino PA-C CRANBERRY-VITAMIN C, 84-20MG (Oral [...] {Vial} Refills: 3 Ordered: 04-Jan-2015 Madelaine GE, Kaley Elizabeth Start : 04-Jan-2015 End : 04-Jan-2015 Inactive desonide 0.0005 mg/mg topical ointment (2 sources) Corticosteroid Start: 05-08-2011 End: 01-06-2012 DESONIDE 0.05 % OINT apply twice daily DESONIDE [id number] Dick Morris DO desoximetasone 2.5 mg/ml topical cream (20 sources) Corticosteroid Start: 05-07-2011 End: 06-05-2011 TOPICORT, 0.25% (External Cream) 1 Cream bid for 0 days Quantity: 1 {Cream} Refills: 0 Ordered: 05-Jun-2011 Alyson Dixon LPN Start : 07-May-2011 End : 05-Jun-2011 Inactive TOPICORT 0.25 % CREA apply twice daily DESOXIMETASONE [id number] Dick Morris DO End: 04-12-2012 TOPICORT 0.25 % CREA apply t wice daily DESOXIMETASONE [id number] Jose Vargas MD diazePAM 2 mg oral [...] tablet by mouth twice daily DIPHENHYDRAMINE HCL [id number] Mary Nolen RN ergocalciferol 22756 unt oral capsule (20 sources) Provitamin D2 Compound Start: 01-12-2009 End: 04-13-2014 take 1 capsule by mouth every week ERGOCALCIFEROL, [id number] (Oral Capsule) 1 Capsule 2 x week for 0 days Quantity: 8 {Capsule} Refills: 3 Ordered: 13-Apr-2014 Alyson Dixon LPN Start : 12-Jan-2009 End : 13-Apr-2014 Inactive End: 01-06-2012 VITAMIN D (ERGOCALCIFEROL) 5 0000 UNIT CAPS one tablet twice a week ERGOCALCIFEROL [id number] Dick Morris DO estradiol 0.025 mg vaginal [...] Start: 02-10-2013 take 1 tablet by jeffry three times daily GABAPENTIN 300 MG CAPS One tablet by mouth three times daily GABAPENTIN [id number] Jose Vargas MD Start: 02-10-2013 End: 11-05-2015 take 1 tablet by mouth twice daily GABAPENTIN 600 MG TABS One tablet by mouth twice daily GABAPENTIN [id number] Zaria Trevino PA-C Start: 01-06-2012 take 1 tablet by jeffry th three times daily NEURONTIN 100 MG CAPS One tablet by mouth three times daily GABAPENTIN [id number] Jose Vargas MD hydrOXYzine hydrochloride 50 mg [...] once daily ISOSORBIDE MONONITRATE ER 30 MG [id number] One tablet by mouth daily (Imdur) ISOSORBIDE MONONITRATE [id number] Zaria Trevino PA-C Start: 04-27-2013 take 1 tablet by jeffry th once daily IMDUR 60 MG [id number] One tablet by mouth daily ISOSORBIDE MONONITRATE [id number] Jose Vargas MD Start: 03-09-2013 take 1 tablet by jeffry th once daily IMDUR 30 MG ZV46G-[id number] One tablet by mouth daily ISOSORBIDE MONONITRATE [id number] Jose Vargas MD L-KQFYDUYHVQEI-O82-B6-B2 TAB S (2 sources) take 1 tablet by mouth once daily CEREFOLIN TABS One tablet by mouth daily I-WIRLALLKTVCP-T30-B6-B2 TABS [id number] Dick Morris DO End: 12-22-2011 take 1 tablet by mouth once daily CEREFOLIN TABS One tablet by mouth daily G-EPFLNMTBNTPV-U90-B6-B2 TABS [id number] Mary Nolen RN lisinopril 5 mg oral tablet (20 sources) Angiotensin Converting Enzyme Inhibitor Start: 04-24-2014 End: 06-27-2014 take 1 tablet by mouth once daily LISINOPRIL 2.5 MG TABS One tablet by mouth daily LISINOPRIL [id number] Kaelyn Ellis RN Start: 12-07-2013 End: 04-10-2014 take 1 tablet by mouth once daily LISINOPRIL 5 MG TABS One tablet by mouth daily LISINOPRIL [id number] Jose Vargas MD Start: 04-27-2013 End: 11-05-2015 [...] TABS One tablet by mouth daily LUTEIN [id number] Zaria Trevino PA-C End: 07-08-2012 take 1 tablet by mouth once daily LUTEIN CAPS One tablet by mouth daily LUTEIN CAPS [id number] Dick Morris DO melatonin 3 mg / [...] TABS One tablet by mouth daily MELOXICAM [id number] Zaria Trevino PA-C metaxalone 800 mg oral [...] tablet by mouth twice daily METOPROLOL TARTRATE [id number] Jose Vargas MD Start: 03-11-2012 End: 04-06-2014 [...] tablet by mouth twice daily METOPROLOL TARTRATE [id number] Jose Vargas MD Multivitamin preparation (18 sources) End: 11-29-2015 MULTIVITAMIN (Oral Liquid) for 0 days Refills: 0 Ordered: 29-Nov-2015 Alyson Dixon LPN End : 29-Nov-2015 Inactive nitroglycerin 0.4 mg sublingual tablet (20 sources) Nitrate Vasodilator Start: 01-06-2012 End: 04-10-2014 NITROSTAT 0.4 MG SUBL 1 tablet under tongue every 5 min up to 3 X NITROGLYCERIN [id number] Jose Vargas MD Start: 12-26-2011 End: 11-29-2015 [...] CPDR One capsule by mouth daily OMEPRAZOLE [id number] Lex Byrnes Alexander Start: 12-31-2011 End: 06-20-2013 PRILOSEC, 20MG (Oral Capsule Delayed Release) [address] qd for 0 days Quantity: 30 {Capsule_DR} Refills: 0 Ordered: 20-Jun-2013 FRANCI Castelan Start : 31-Dec-2011 End : 20-Jun-2013 Inactive End: 12-22-2011 take 1 tablet by mouth once daily PRILOSEC 10 MG CPDR One tablet by mouth daily OMEPRAZOLE [id number] Dick Morris DO pantoprazole 20 mg delayed release oral tablet (2 sources) Proton Pump Inhibitor End: 04-12-2012 take 1 tablet by mouth once daily PROTONIX 20 MG TBEC One tablet by mouth daily PANTOPRAZOLE SODIUM [id number] Jose Vargas MD pravastatin sodium 80 mg [...] Three tablets by mouth daily PREDNISONE TABS 52813326617 Mary Nolen RN take 3 tablets by [facility] once daily PREDNISONE TABS Three tablets by mouth daily PREDNISONE TABS [id number] Dick Morris DO rosuvastatin calcium 10 mg oral tablet (20 sources) HMG-CoA Reductase Inhibitor Start: 02-02-2019 take 1 tablet by mouth once daily Crestor 10 MG Oral Tablet 1 (one) Tablet qd for 0 days Quantity: 30 {Tablet} Refills: 4 Ordered: 02-Feb-2019 Nicole ANAND Mirella Searsdeidre ANAND Mirella Start : 02-Feb-2019 Active Comments: substitute generic Start: 01-19-2019 take 1 tablet by jeffry th once daily Crestor 10 MG Oral Tablet 1 (one) Tablet qd for 0 days Quantity: 30 {Tablet} Refills: 4 Ordered: 19-Jan-2019 Nicole ANANDMirella DO, Kathleen Start : 19-Jan-2019 Active Comments: [...] One tablet by mouth daily ROSUVASTATIN CALCIUM [id number] Jose Vargas MD Comment on above: substitute generic Mail order. DOCUSATE SODIUM CAPS (2 sources) COLACE CAPS as n eeded DOCUSATE SODIUM CAPS [id number] Dick Morris DO End: 10-10-2014 COLACE CAPS as needed 10/10 DOCUSATE SODIUM CAPS [id number] Zaria Trevino PA-C 28 actuat teriparatide 0.02 [...] mouth once daily DETROL LA 4 MG [id number]-[id number] One tablet by mouth daily TOLTERODINE TARTRATE [id number] Mary Nolen RN take 1 tablet by jeffry th once daily DETROL LA 4 MG [id number]-XNL One tablet by mouth daily TOLTERODINE TARTRATE [id number] Dick Morris DO traMADol hydrochloride 50 mg [...] mouth three times daily TRAMADOL HCL TABS [id number] Dick Morris DO End: 12-22-2011 take 1 tablet by mouth three times daily ULTRAM TABS One tablet by mouth three times daily TRAMADOL HCL TABS [id number] Mary Nolen RN Comment on above: [age]-- [...] : 01-Dec-2013 End : 06-Apr-2014 Inactive Vit C,H-Lj-Tktrn-Lutein-Ze axan 1 EACH capsule (11 sources) Start: 019 End: 023 take 1 capsule by mouth once daily Vit C,D-Hx-Wvlas-Lutein-Z eaxan 1 EACH capsule Discontinued 1 NMA PO DAILY May 13, 2019 12:00am May 21, 2023 10:07am CHOLECALCIFEROL (4 sources) Start: 016 End: 016 take 1 tablet by mouth once daily VITAMIN D 1000 UNIT TABS One tablet by mouth daily CHOLECALCIFEROL [id number] Zaria Trevino PA-C Start: 11-02-2015 take 1 tablet by jeffry once daily VITAMIN D 1000 UNIT TABS One tablet by mouth daily CHOLECALCIFEROL [id number] Mary Nolen RN Start: 02-10-2013 End: 10-10-2014 take 1 tablet by mouth once daily VITAMIN D 1000 UNIT TABS One tablet by mouth daily CHOLECALCIFEROL [id number] Zaria Trevino PA-C Start: 02-10-2013 take 1 tablet by once daily VITAMIN D 1000 UNIT TABS One tablet by mouth daily CHOLECALCIFEROL [id number] Jose Vargas MD Problems Active Problems Problem Classification Problem Date Documented Date Episodic/Chronic Adjustment disorders (18 sources) Adjustment disorder with depressed mood; Translations: [Grief finding] 01-21-2018 Chronic Anxiety disorders (20 sources) Anxiety; Translations: [Anxiety] 01-21-2018 Chronic Comment on above: stable Cardiac [...] disease (20 sources) Atherosclerotic heart disease of [place] coronary artery without angina pectoris; Translations: [Coronary arteriosclerosis] Onset: 12-30-2011 10-31-2016 Chronic Delirium, dementia, and amnestic and other cognitive disorders (20 sources) Dementia; Translations: [Dementia with agitation] Onset: 02-10-2025 08-22-2024 Chronic Disorders of lipid metabolism (20 sources) Hyperlipidemia; Translations: [Pure hypercholesterolemia] Onset: 01-06-2012 01-06-2012 Chronic Essential hypertension (20 sources) Hypertensive disorder; Translations: [Essential (primary) hypertension] Onset: 12-30-2011 12-30-2011 Chronic Genitourinary symptoms and ill-defined conditions (20 sources) [...] current use of drug therapy; Translations: [Other assisted (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 therapy] 11-23-2017 Episodic Other bone [...] treadmil accident ly turn on while on Fluid and electrolyte disorders (1 source) Hyperkalemia; [...] (current) use of other medications; Translations: [Other assisted (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 therapy] Onset: 07-08-2013 Resolved: 05-11-2015 [...] p laced her on asa-- cardio at [facility]- he said no more plavix ever- rec [...] p laced her on asa-- cardio at [facility]- he said no more plavix ever- rec [...] Auto (Unsp spec) [#/Vol] 1.39 10*3/uL 0.83-4.51 [facility] Absolute neutrophil countOrd ered By: Yesika Faust on 05-16-2025 Neutrophils (Bld) [#/Vol] 9.3 10*3/uL High 2.0-7.7 [facility] Anion gap in Serum or Plasma Ordered By: Yesika Faust on 05-16-2025 Anion gap [Moles/Vol] 12 mmol/L 5-15 [facility] Automated lymphocyte count a s percentage of total leukocytesOrdered By: Yesika Faust on 05-16-2025 Lymphocytes/100 WBC Auto (Unsp spec) 11.7 % Low 19-41 [facility] BUN/creatinine ratioOrdered By: [facility] Fa[facility] on 05-16-2025 Urea nitrogen/Creatinine [Mass ratio] 24.6 mg/mg High 10-20 [facility] Basophil percentageOrdered B y: Yesika Faust on 05-16-2025 Basophils/100 WBC (Bld) 0.5 % 0-1 [facility] Carbon dioxide, total [Moles /volume] in Central venous bloodOrdered By: Yesika Faust on 05-16-2025 CO2 [Moles/Vol] 20.3 mmol/L Low 21.0-32.0 [facility] Chloride assayOrdered By: Tad Faust on 05-16-2025 Chloride [Moles/Vol] 103 mmol/L 98-108 [facility] Eosinophil percentageOrdered By: ky Faust on 05-16-2025 Eosinophils/100 WBC (Bld) 0.6 % 0-5 [facility] Erythrocyte distribution wid th ratioOrdered By: Yesika Faust on 05-16-2025 Erythrocyte distribution width (RBC) [Ratio] 13.1 % 11.6-14.6 [facility] Erythrocyte distribution wid th standard deviationOrdered By: ky Faust on 05-16-2025 Erythrocyte distribution width (RBC) [Ratio] 46.6 fl High 35.1-43.9 [facility] Glomerular filtration rate ( GFR) estimation/1.73 sq m using serum, plasma, or whole bOrdered By: Yesika Faust on 05-16-2025 GFR/1.73 sq M.predicted among non-blacks MDRD (S/P/Bld) [Vol rate/Area] 86 mL/min/{1.73_m2} >60 [facility] Comment on above: mL/min/1.73m2 CKD-EP I Creatinine Equation (2020) Hematocrit Auto (Bld) [Volum e fraction]Ordered By: Yesika Faust on 05-16-2025 Hematocrit (Bld) [Volume fraction] 41.8 % 37-47 [facility] Hemoglobin measurementOrdere d By: Yesika Faust on 05-16-2025 Hemoglobin (Bld) [Mass/Vol] 13.5 g/dL 12.0-15.0 [facility] Immature granulocytes/100 WB C Auto (Bld)Ordered By: Yesika Faust on 05-16-2025 Immature granulocytes/100 WBC (Bld) 0.500 % 0.0-0.9 [facility] Comment on above: IG% - Immature Granu locytes (promyelocytes, myelocytes and metamyelocytes) > 1% indicates that a LEFT SHIFT is Present. MCV (mean corpuscular volume ) determinationOrdered By: Yesika Faust on 05-16-2025 MCV (RBC) [Entitic vol] 98.4 fL 81-99 [facility] Mean corpuscular hemoglobin (MCH) determinationOrdered By: enriquetaduboismacarena Faust on 05-16-2025 MCH (RBC) [Entitic mass] 31.8 pg 27.0-32.0 [facility] Mean corpuscular hemoglobin concentration (MCHC) determinationOrdered By: Yesika Faust on 05-16-2025 MCHC (RBC) [Mass/Vol] 32.3 g/dL 32-36 [facility] Mean platelet volume determi nationOrdered By: Yesika Faust on 05-16-2025 Platelet mean volume (Bld) [Entitic vol] 11.1 fL 6.2-12.0 [facility] Monocyte percentageOrdered B y: Yesika Faust on 05-16-2025 Monocytes/100 WBC (Bld) 8.3 % 0-10 [facility] Neutrophil percentageOrdered By: Yesika Faust on 05-16-2025 Neutrophils/100 WBC (Bld) 78.4 % High 47-70 [facility] Nucleated red blood cell per centageOrdered By: Yesika Faust on 05-16-2025 Nucleated RBC/100 WBC (Bld) [Ratio] 0 % 0-5 [facility] Platelet countOrdered By: Tad Faust on 05-16-2025 Platelets (Bld) [#/Vol] 218 10*3/uL 150-450 [facility] Potassium measurement (mass/ volume)Ordered By: Yesika Faust on 05-16-2025 Potassium (Unsp spec) [Mass/Vol] 5.2 mmol/L High 3.3-5.1 [facility] Comment on above: Hemolysis present, R esults could be affected. RBC Auto (Bld) [#/Vol]Ordere d By: Yesika Faust on 05-16-2025 RBC (Bld) [#/Vol] 4.25 10*6/uL 4.2-5.4 [facility] Serum creatinine measurement (mass/volume)Ordered By: Yesika Faust on 05-16-2025 Creatinine [Mass/Vol] 0.64 mg/dL Low 0.70-1.20 [facility] Serum glucose measurement (m ass/volume)Ordered By: Yesika Faust on 05-16-2025 Glucose [Mass/Vol] 86 mg/dL 70-99 [facility] Serum or plasma calcium madi urement (mass/volume)Ordered By: Yesika Faust on 05-16-2025 Calcium [Mass/Vol] 9.4 mg/dL 7.6-11.0 [facility] Serum or plasma urea nitroge n measurement (mass/volume)Ordered By: Yesika Faust on 05-16-2025 Urea nitrogen [Mass/Vol] 16 mg/dL 4-19 [facility] Sodium levelOrdered By: Jed Faust on 05-16-2025 Sodium [Moles/Vol] 135 mmol/L 133-145 [facility] White blood cell (WBC) count Ordered By: Yesika Faust on 05-16-2025 WBC (Bld) [#/Vol] 11.8 10*3/uL High 4.4-11.0 [facility] Absolute lymphocyte countOrd ered By: Yesika Faust on 04-14-2025 Lymphocytes Auto (Unsp spec) [#/Vol] 1.92 10*3/uL 0.83-4.51 [facility] Absolute neutrophil countOrd ered By: Yesika Faust on 04-14-2025 Neutrophils (Bld) [#/Vol] 5.3 10*3/uL 2.0-7.7 [facility] Anion gap in Serum or Plasma Ordered By: Yesika Faust on 04-14-2025 Anion gap [Moles/Vol] 11 mmol/L 5-15 [facility] Automated lymphocyte count a s percentage of total leukocytesOrdered By: Yesika Faust on 04-14-2025 Lymphocytes/100 WBC Auto (Unsp spec) 23.1 % 19-41 [facility] BUN/creatinine ratioOrdered By: Yesika Faust on 04-14-2025 Urea nitrogen/Creatinine [Mass ratio] 34.0 mg/mg High 10-20 [facility] Basophil percentageOrdered B y: Yesika Faust on 04-14-2025 Basophils/100 WBC (Bld) 0.6 % 0-1 [facility] Bilirubin directOrdered By: Yesika Faust on 04-14-2025 Bilirubin.direct [Mass/Vol] 0.09 mg/dL 0.00-0.30 [facility] Bilirubin, totalOrdered By: Yesika Faust on 04-14-2025 Bilirubin [Mass/Vol] 0.23 mg/dL 0.00-1.30 [facility] Carbon dioxide, total [Moles /volume] in Central venous bloodOrdered By: Yesika Faust on 04-14-2025 CO2 [Moles/Vol] 27.5 mmol/L 21.0-32.0 [facility] Chloride assayOrdered By: Tad Faust on 04-14-2025 Chloride [Moles/Vol] 100 mmol/L 98-108 [facility] Eosinophil percentageOrdered By: Yesika Faust on 04-14-2025 Eosinophils/100 WBC (Bld) 3.1 % 0-5 [facility] Erythrocyte distribution wid th ratioOrdered By: Yesika Faust on 04-14-2025 Erythrocyte distribution width (RBC) [Ratio] 13.0 % 11.6-14.6 [facility] Erythrocyte distribution wid th standard deviationOrdered By: ky Faust on 04-14-2025 Erythrocyte distribution width (RBC) [Ratio] 46.0 fl High 35.1-43.9 [facility] Glomerular filtration rate ( GFR) estimation/1.73 sq m using serum, plasma, or whole bOrdered By: Yeiska Faust on 04-14-2025 GFR/1.73 sq M.predicted among non-blacks MDRD (S/P/Bld) [Vol rate/Area] 87 mL/min/{1.73_m2} >60 [facility] Comment on above: mL/min/1.73m2 CKD-EP I Creatinine Equation (2020) Hematocrit Auto (Bld) [Volum e fraction]Ordered By: Yesika Faust on 04-14-2025 Hematocrit (Bld) [Volume fraction] 44.9 % 37-47 [facility] Hemoglobin measurementOrdere d By: Yesika Faust on 04-14-2025 Hemoglobin (Bld) [Mass/Vol] 14.4 g/dL 12.0-15.0 [facility] Immature granulocytes/100 WB C Auto (Bld)Ordered By: Yesika Faust 04-14-2025 Immature granulocytes/100 WBC (Bld) 0.600 % 0.0-0.9 [facility] Comment on above: IG% - Immature Granu locytes (promyelocytes, myelocytes and metamyelocytes) > 1% indicates that a LEFT SHIFT is Present. Laboratory - Chemistry and C hemistry - challengeOrdered By: Yesika Faust on 04-14-2025 AST [Catalytic activity/Vol] 19 U/L <32 [facility] MCV (mean corpuscular volume ) determinationOrdered By: Yesika Faust 04-14-2025 MCV (RBC) [Entitic vol] 96.8 fL 81-99 [facility] Mean corpuscular hemoglobin (MCH) determinationOrdered By: Yesika Faust on 04-14-2025 MCH (RBC) [Entitic mass] 31.0 pg 27.0-32.0 [facility] Mean corpuscular hemoglobin concentration (MCHC) determinationOrdered By: Yesika Faust on 04-14-2025 MCHC (RBC) [Mass/Vol] 32.1 g/dL 32-36 [facility] Mean platelet volume determi nationOrdered By: Yesika Faust on 04-14-2025 Platelet mean volume (Bld) [Entitic vol] 10.5 fL 6.2-12.0 [facility] Monocyte percentageOrdered B y: Yesika Faust on 04-14-2025 Monocytes/100 WBC (Bld) 9.3 % 0-10 [facility] Neutrophil percentageOrdered By: Yesika Faust on 04-14-2025 Neutrophils/100 WBC (Bld) 63.3 % 47-70 [facility] Nucleated red blood cell per centageOrdered By: Yesika Faust on 04-14-2025 Nucleated RBC/100 WBC (Bld) [Ratio] 0 % 0-5 [facility] Platelet countOrdered By: Tad Faust on 04-14-2025 Platelets (Bld) [#/Vol] 263 10*3/uL 150-450 [facility] Potassium measurement (mass/ volume)Ordered By: Yesika Faust on 04-14-2025 Potassium (Unsp spec) [Mass/Vol] 4.2 mmol/L 3.3-5.1 [facility] RBC Auto (Bld) [#/Vol]Ordere d By: Yesika Faust on 04-14-2025 RBC (Bld) [#/Vol] 4.64 10*6/uL 4.2-5.4 [facility] Serum creatinine measurement (mass/volume)Ordered By: Yesika Faust on 04-14-2025 Creatinine [Mass/Vol] 0.62 mg/dL Low 0.70-1.20 [facility] Serum globulin measurementOr dered By: Yesika Faust on 04-14-2025 Globulin (S) [Mass/Vol] 2.9 g/dL 2.2-4.2 [facility] Serum glucose measurement (m ass/volume)Ordered By: Yesika Faust on 04-14-2025 Glucose [Mass/Vol] 114 mg/dL High 70-99 [facility] Serum or plasma alanine vela otransferase (ALT) measurementOrdered By: Yesika Faust on 04-14-2025 ALT [Catalytic activity/Vol] 19 U/L <35 [facility] Serum or plasma albumin madi urement (mass/volume)Ordered By: Yesika Faust on 04-14-2025 Albumin [Mass/Vol] 4.2 g/dL 3.4-4.8 [facility] Serum or plasma alkaline mariaelena sphatase measurementOrdered By: Yesika Faust on 04-14-2025 ALP [Catalytic activity/Vol] 135 U/L High 35-104 [facility] Serum or plasma calcium madi urement (mass/volume)Ordered By: Yesika Faust on 04-14-2025 Calcium [Mass/Vol] 9.7 mg/dL 7.6-11.0 [facility] Serum or plasma urea nitroge n measurement (mass/volume)Ordered By: Yesika Faust on 04-14-2025 Urea nitrogen [Mass/Vol] 21 mg/dL High 4-19 [facility] Sodium levelOrdered By: Jed Faust on 04-14-2025 Sodium [Moles/Vol] 139 mmol/L 133-145 [facility] Total proteinOrdered By: Randall Faust on 04-14-2025 Protein [Mass/Vol] 7.1 g/dL 5.9-8.4 [facility] White blood cell (WBC) count Ordered By: Yesika Faust on 04-14-2025 WBC (Bld) [#/Vol] 8.3 10*3/uL 4.4-11.0 [facility] Absolute lymphocyte countOrd ered By: Yesika Faust on 03-14-2025 Lymphocytes Auto (Unsp spec) [#/Vol] 2.03 10*3/uL 0.83-4.51 [facility] Absolute neutrophil countOrd ered By: Tadenriquetadenae Christiansonrafaela on 03-14-2025 Neutrophils (Bld) [#/Vol] 3.4 10*3/uL 2.0-7.7 [facility] Anion gap in Serum or Plasma Ordered By: Yesika Faust on 03-14-2025 Anion gap [Moles/Vol] 9 mmol/L 5-15 [facility] Automated lymphocyte count a s percentage of total leukocytesOrdered By: Yesika Faust on 03-14-2025 Lymphocytes/100 WBC Auto (Unsp spec) 31.4 % 19-41 [facility] BUN/creatinine ratioOrdered By: ky Butterfieldkathierafaela on 03-14-2025 Urea nitrogen/Creatinine [Mass ratio] 38.6 mg/mg High 10-20 [facility] Basophil percentageOrdered B y: Yesika Butterfieldkathierafaela on 03-14-2025 Basophils/100 WBC (Bld) 0.5 % 0-1 [facility] Carbon dioxide, total [Moles /volume] in Central venous bloodOrdered By: Yesika Butterfieldkathierafaela on 03-14-2025 CO2 [Moles/Vol] 28.1 mmol/L 21.0-32.0 [facility] Chloride assayOrdered By: Tad enriquetadenae Faust on 03-14-2025 Chloride [Moles/Vol] 105 mmol/L 98-108 [facility] Eosinophil percentageOrdered By: ky Butterfieldkathierafaela on 03-14-2025 Eosinophils/100 WBC (Bld) 5.6 % High 0-5 [facility] Erythrocyte distribution wid th ratioOrdered By: ky Faust on 03-14-2025 Erythrocyte distribution width (RBC) [Ratio] 12.8 % 11.6-14.6 [facility] Erythrocyte distribution wid th standard deviationOrdered By: enriquetaduboismacarena Faust on 03-14-2025 Erythrocyte distribution width (RBC) [Ratio] 46.6 fl High 35.1-43.9 [facility] Glomerular filtration rate ( GFR) estimation/1.73 sq m using serum, plasma, or whole bOrdered By: Yesika Faust on 03-14-2025 GFR/1.73 sq M.predicted among non-blacks MDRD (S/P/Bld) [Vol rate/Area] 88 mL/min/{1.73_m2} >60 [facility] Comment on above: mL/min/1.73m2 CKD-EP I Creatinine Equation (2020) Hematocrit Auto (Bld) [Volum e fraction]Ordered By: Yesika Faust on 03-14-2025 Hematocrit (Bld) [Volume fraction] 39.8 % 37-47 [facility] Hemoglobin measurementOrdere d By: Yesika Faust on 03-14-2025 Hemoglobin (Bld) [Mass/Vol] 12.8 g/dL 12.0-15.0 [facility] Immature granulocytes/100 WB C Auto (Bld)Ordered By: ky Faust on 03-14-2025 Immature granulocytes/100 WBC (Bld) 0.600 % 0.0-0.9 [facility] Comment on above: IG% - Immature Granu locytes (promyelocytes, myelocytes and metamyelocytes) > 1% indicates that a LEFT SHIFT is Present. MCV (mean corpuscular volume ) determinationOrdered By: Yesika Faust on 03-14-2025 MCV (RBC) [Entitic vol] 99.0 fL 81-99 [facility] Mean corpuscular hemoglobin (MCH) determinationOrdered By: Yesika Faust on 03-14-2025 MCH (RBC) [Entitic mass] 31.8 pg 27.0-32.0 [facility] Mean corpuscular hemoglobin concentration (MCHC) determinationOrdered By: Yesika Faust on 03-14-2025 MCHC (RBC) [Mass/Vol] 32.2 g/dL 32-36 [facility] Mean platelet volume determi nationOrdered By: Yesika Faust on 03-14-2025 Platelet mean volume (Bld) [Entitic vol] 10.4 fL 6.2-12.0 [facility] Monocyte percentageOrdered B y: Yesika Faust on 03-14-2025 Monocytes/100 WBC (Bld) 10.2 % High 0-10 [facility] Neutrophil percentageOrdered By: Yesika Faust on 03-14-2025 Neutrophils/100 WBC (Bld) 51.7 % 47-70 [facility] Nucleated red blood cell per centageOrdered By: Yesika Faust on 03-14-2025 Nucleated RBC/100 WBC (Bld) [Ratio] 0 % 0-5 [facility] Platelet countOrdered By: Tad Faust on 03-14-2025 Platelets (Bld) [#/Vol] 238 10*3/uL 150-450 [facility] Potassium measurement (mass/ volume)Ordered By: Yesika Faust on 03-14-2025 Potassium (Unsp spec) [Mass/Vol] 4.1 mmol/L 3.3-5.1 [facility] RBC Auto (Bld) [#/Vol]Ordere d By: Yesika Faust on 03-14-2025 RBC (Bld) [#/Vol] 4.02 10*6/uL Low 4.2-5.4 [facility] Serum creatinine measurement (mass/volume)Ordered By: Yesika Fuast on 03-14-2025 Creatinine [Mass/Vol] 0.60 mg/dL Low 0.70-1.20 [facility] Serum glucose measurement (m ass/volume)Ordered By: Yesika Faust 03-14-2025 Glucose [Mass/Vol] 82 mg/dL 70-99 [facility] Serum or plasma calcium madi urement (mass/volume)Ordered By: Yesika Faust on 03-14-2025 Calcium [Mass/Vol] 9.1 mg/dL 7.6-11.0 [facility] Serum or plasma urea nitroge n measurement (mass/volume)Ordered By: Yesika Faust on 03-14-2025 Urea nitrogen [Mass/Vol] 23 mg/dL High 4-19 [facility] Sodium levelOrdered By: Jed Faust on 03-14-2025 Sodium [Moles/Vol] 142 mmol/L 133-145 [facility] White blood cell (WBC) count Ordered By: Yesika Faust on 03-14-2025 WBC (Bld) [#/Vol] 6.5 10*3/uL 4.4-11.0 [facility] Bilirubin Test strip Ql (U)O rdered By: Yesika Faust on 03-06-2025 Bilirubin Ql (U) Negative Negative [facility] Ketones Test strip Ql (U)Ord ered By: Yesika Faust on 03-06-2025 Ketones Ql (U) 5 mg/dl High Negative [facility] Nitrite Test strip Ql (U)Ord ered By: Yesika Faust on 03-06-2025 Nitrite Ql (U) Negative Negative [facility] Protein Test strip Ql (U)Ord ered By: Yesika Faust on 03-06-2025 Protein Ql (U) 100 mg/dl High Negative [facility] Urine clarityOrdered By: Randall Faust on 03-06-2025 Clarity (U) Turbid Clear [facility] Urine color determinationOrd ered By: Yesika Faust on 03-06-2025 Color (U) Yellow Yellow [facility] Urine cultureOrdered By: Randall Faust on 03-06-2025 Bacteria identified Cx Nom (U) Proteus mirabilis Abnormal [facility] Urine glucose detectionOrder ed By: Yesika Faust on 03-06-2025 Glucose Ql (U) Normal mg/dl Normal [facility] Urine leukocyte esterase det ection by dipstickOrdered By: Yesika Faust on 03-06-2025 Leukocyte esterase Test strip Ql (U) 500 /ul High Negative [facility] Urine pHOrdered By: Fernando Faust on 03-06-2025 pH (U) 6.0 [pH] 5.0 - 8.0 [facility] Urine specific gravity measu rementOrdered By: Yesika Faust on 03-06-2025 Specific gravity (U) [Rel density] 1.020 1.002-1.03 0 [facility] Urine urobilinogen measureme ntOrdered By: Yesika Faust on 03-06-2025 Urobilinogen Ql (U) Normal mg/dl Normal [facility] Serum or plasma valproate me asurement (mass/volume)Ordered By: Yesika Faust on 02-27-2025 Valproate [Mass/Vol] 15 ug/mL Low 50-100 [facility] Comment on above: Valproic Acid concen trations >100 ug/mL are potentially toxic. Absolute lymphocyte countOrd ered By: Yesika Faust on 02-13-2025 Lymphocytes Auto (Unsp spec) [#/Vol] 1.82 10*3/uL 0.83-4.51 [facility] Absolute neutrophil countOrd ered By: Yesika Faust on 02-13-2025 Neutrophils (Bld) [#/Vol] 3.5 10*3/uL 2.0-7.7 [facility] Anion gap in Serum or Plasma Ordered By: Yesika Faust on 02-13-2025 Anion gap [Moles/Vol] 10 mmol/L 5-15 [facility] Automated lymphocyte count a s percentage of total leukocytesOrdered By: Yesika Faust on 02-13-2025 Lymphocytes/100 WBC Auto (Unsp spec) 29.1 % 19-41 [facility] BUN/creatinine ratioOrdered By: Yesika Faust on 02-13-2025 Urea nitrogen/Creatinine [Mass ratio] 32.3 mg/mg High 10-20 [facility] Basophil percentageOrdered B y: Yesika Faust on 02-13-2025 Basophils/100 WBC (Bld) 0.6 % 0-1 [facility] Carbon dioxide, total [Moles /volume] in Central venous bloodOrdered By: Yesika Faust on 02-13-2025 CO2 [Moles/Vol] 28.1 mmol/L 21.0-32.0 [facility] Chloride assayOrdered By: Tad Faust on 02-13-2025 Chloride [Moles/Vol] 101 mmol/L 98-108 [facility] Eosinophil percentageOrdered By: Yesika Faust on 06-02-2025 Eosinophils/100 WBC (Bld) 3.7 % 0-5 [facility] Erythrocyte distribution wid th ratioOrdered By: Yesika Faust on 02-13-2025 Erythrocyte distribution width (RBC) [Ratio] 12.9 % 11.6-14.6 [facility] Erythrocyte distribution wid th standard deviationOrdered By: Yesika Faust on 02-13-2025 Erythrocyte distribution width (RBC) [Ratio] 46.5 fl High 35.1-43.9 [facility] Glomerular filtration rate ( GFR) estimation/1.73 sq m using serum, plasma, or whole bOrdered By: Jedduboismacarena Faust on 02-13-2025 GFR/1.73 sq M.predicted among non-blacks MDRD (S/P/Bld) [Vol rate/Area] 87 mL/min/{1.73_m2} >60 [facility] Comment on above: mL/min/1.73m2 CKD-EP I Creatinine Equation (2020) Hematocrit Auto (Bld) [Volum e fraction]Ordered By: Yesika Faust on 02-13-2025 Hematocrit (Bld) [Volume fraction] 43.2 % 37-47 [facility] Hemoglobin measurementOrdere d By: Yesika Faust on 02-13-2025 Hemoglobin (Bld) [Mass/Vol] 13.9 g/dL 12.0-15.0 [facility] Immature granulocytes/100 WB C Auto (Bld)Ordered By: Yesika Faust on 02-13-2025 Immature granulocytes/100 WBC (Bld) 0.300 % 0.0-0.9 [facility] Comment on above: IG% - Immature Granu locytes (promyelocytes, myelocytes and metamyelocytes) > 1% indicates that a LEFT SHIFT is Present. MCV (mean corpuscular volume ) determinationOrdered By: Yesika Faust on 02-13-2025 MCV (RBC) [Entitic vol] 97.7 fL 81-99 [facility] Mean corpuscular hemoglobin (MCH) determinationOrdered By: enriquetaduboismacarena Faust 02-13-2025 MCH (RBC) [Entitic mass] 31.4 pg 27.0-32.0 [facility] Mean corpuscular hemoglobin concentration (MCHC) determinationOrdered By: Yesika Faust on 02-13-2025 MCHC (RBC) [Mass/Vol] 32.2 g/dL 32-36 [facility] Mean platelet volume determi nationOrdered By: Yesika Faust on 02-13-2025 Platelet mean volume (Bld) [Entitic vol] 10.3 fL 6.2-12.0 [facility] Monocyte percentageOrdered B y: Yesika Faust on 02-13-2025 Monocytes/100 WBC (Bld) 10.7 % High 0-10 [facility] Neutrophil percentageOrdered By: Yesika Faust on 02-13-2025 Neutrophils/100 WBC (Bld) 55.6 % 47-70 [facility] Nucleated red blood cell per centageOrdered By: Yesika Faust on 02-13-2025 Nucleated RBC/100 WBC (Bld) [Ratio] 0 % 0-5 [facility] Platelet countOrdered By: Tad Faust on 02-13-2025 Platelets (Bld) [#/Vol] 231 10*3/uL 150-450 [facility] Potassium measurement (mass/ volume)Ordered By: Yesika Faust on 02-13-2025 Potassium (Unsp spec) [Mass/Vol] 4.0 mmol/L 3.3-5.1 [facility] RBC Auto (Bld) [#/Vol]Ordere d By: Yesika Faust on 02-13-2025 RBC (Bld) [#/Vol] 4.42 10*6/uL 4.2-5.4 [facility] Serum creatinine measurement (mass/volume)Ordered By: Yesika Faust on 02-13-2025 Creatinine [Mass/Vol] 0.62 mg/dL Low 0.70-1.20 [facility] Serum glucose measurement (m ass/volume)Ordered By: Yesika Faust on 02-13-2025 Glucose [Mass/Vol] 88 mg/dL 70-99 [facility] Serum or plasma calcium madi urement (mass/volume)Ordered By: Yesika Faust on 02-13-2025 Calcium [Mass/Vol] 9.3 mg/dL 7.6-11.0 [facility] Serum or plasma urea nitroge n measurement (mass/volume)Ordered By: Yesika Faust on 02-13-2025 Urea nitrogen [Mass/Vol] 20 mg/dL High 4-19 [facility] Sodium levelOrdered By: Jed denae Scoutkathierafaela on 02-13-2025 Sodium [Moles/Vol] 140 mmol/L 133-145 [facility] White blood cell (WBC) count Ordered By: Yesika Faust on 02-13-2025 WBC (Bld) [#/Vol] 6.3 10*3/uL 4.4-11.0 [facility] Potassium measurement (mass/ volume)Ordered By: Zeina Balbuena on 01-23-2025 Potassium (Unsp spec) [Mass/Vol] 3.8 mmol/L 3.3-5.1 [facility] Absolute lymphocyte countOrd ered By: Yesika Faust on 01-18-2025 Lymphocytes Auto (Unsp spec) [#/Vol] 1.51 10*3/uL 0.83-4.51 [facility] Absolute neutrophil countOrd ered By: Yesika Butterfieldkathierafaela on 01-18-2025 Neutrophils (Bld) [#/Vol] 3.9 10*3/uL 2.0-7.7 [facility] Anion gap in Serum or Plasma Ordered By: Yesika Faust on 01-18-2025 Anion gap [Moles/Vol] 12 mmol/L 5-15 [facility] Automated lymphocyte count a s percentage of total leukocytesOrdered By: Yesika Faust on 01-18-2025 Lymphocytes/100 WBC Auto (Unsp spec) 23.4 % 19-41 [facility] BUN/creatinine ratioOrdered By: Yesika Faust on 01-18-2025 Urea nitrogen/Creatinine [Mass ratio] 36.2 mg/mg High 10-20 [facility] Basophil percentageOrdered B y: Yesika Faust on 01-18-2025 Basophils/100 WBC (Bld) 0.6 % 0-1 [facility] Bilirubin directOrdered By: Yesika Faust on 01-18-2025 Bilirubin.direct [Mass/Vol] 0.11 mg/dL 0.00-0.30 [facility] Bilirubin, totalOrdered By: Yesika Faust on 01-18-2025 Bilirubin [Mass/Vol] 0.25 mg/dL 0.00-1.30 [facility] Carbon dioxide, total [Moles /volume] in Central venous bloodOrdered By: Yesika Faust on 01-18-2025 CO2 [Moles/Vol] 22.7 mmol/L 21.0-32.0 [facility] Chloride assayOrdered By: Tad Faust on 01-18-2025 Chloride [Moles/Vol] 107 mmol/L 98-108 [facility] Eosinophil percentageOrdered By: Yesika Faust 01-18-2025 Eosinophils/100 WBC (Bld) 6.1 % High 0-5 [facility] Erythrocyte distribution wid th ratioOrdered By: Yesika Faust on 01-18-2025 Erythrocyte distribution width (RBC) [Ratio] 13.4 % 11.6-14.6 [facility] Erythrocyte distribution wid th standard deviationOrdered By: Yesika Faust on 01-18-2025 Erythrocyte distribution width (RBC) [Ratio] 46.6 fl High 35.1-43.9 [facility] Glomerular filtration rate ( GFR) estimation/1.73 sq m using serum, plasma, or whole bOrdered By: Yesika Faust 01-18-2025 GFR/1.73 sq M.predicted among non-blacks MDRD (S/P/Bld) [Vol rate/Area] 80 mL/min/{1.73_m2} >60 [facility] Comment on above: mL/min/1.73m2 CKD-EP I Creatinine Equation (2020) Hematocrit Auto (Bld) [Volum e fraction]Ordered By: Yesika Faust on 01-18-2025 Hematocrit (Bld) [Volume fraction] 42.1 % 37-47 [facility] Hemoglobin measurementOrdere d By: Yesika Faust on 01-18-2025 Hemoglobin (Bld) [Mass/Vol] 14.2 g/dL 12.0-15.0 [facility] Immature granulocytes/100 WB C Auto (Bld)Ordered By: Yesika Faust on 01-18-2025 Immature granulocytes/100 WBC (Bld) 0.500 % 0.0-0.9 [facility] Comment on above: IG% - Immature Granu locytes (promyelocytes, myelocytes and metamyelocytes) > 1% indicates that a LEFT SHIFT is Present. Laboratory - Chemistry and C hemistry - challengeOrdered By: Yesika Faust on 01-18-2025 AST [Catalytic activity/Vol] 19 U/L <32 [facility] MCV (mean corpuscular volume ) determinationOrdered By: Yesika Faust on 01-18-2025 MCV (RBC) [Entitic vol] 94.4 fL 81-99 [facility] Mean corpuscular hemoglobin (MCH) determinationOrdered By: Yesika Faust on 01-18-2025 MCH (RBC) [Entitic mass] 31.8 pg 27.0-32.0 [facility] Mean corpuscular hemoglobin concentration (MCHC) determinationOrdered By: Yesika Faust on 01-18-2025 MCHC (RBC) [Mass/Vol] 33.7 g/dL 32-36 [facility] Mean platelet volume determi nationOrdered By: Yesika Faust on 01-18-2025 Platelet mean volume (Bld) [Entitic vol] 11.6 fL 6.2-12.0 [facility] Monocyte percentageOrdered B y: Yesika Faust on 01-18-2025 Monocytes/100 WBC (Bld) 9.3 % 0-10 [facility] Neutrophil percentageOrdered By: Yesika Faust on 01-18-2025 Neutrophils/100 WBC (Bld) 60.1 % 47-70 [facility] Nucleated red blood cell per centageOrdered By: Yesika Faust on 01-18-2025 Nucleated RBC/100 WBC (Bld) [Ratio] 0 % 0-5 [facility] Platelet countOrdered By: Tad Faust on 01-18-2025 Platelet count TNP [facility] Comment on above: Test not performedPl ease [...] Platelets LM Ql (Bld) SLT DEC ADEQ [facility] Potassium measurement (mass/ volume)Ordered By: Yesika Faust on 01-18-2025 Potassium (Unsp spec) [Mass/Vol] 5.6 mmol/L High 3.3-5.1 [facility] RBC Auto (Bld) [#/Vol]Ordere d By: Yesika Faust on 01-18-2025 RBC (Bld) [#/Vol] 4.46 10*6/uL 4.2-5.4 [facility] Serum creatinine measurement (mass/volume)Ordered By: Yesika Faust on 01-18-2025 Creatinine [Mass/Vol] 0.73 mg/dL 0.70-1.20 [facility] Serum globulin measurementOr dered By: Yesika Faust on 01-18-2025 Globulin (S) [Mass/Vol] 2.5 g/dL 2.2-4.2 [facility] Serum glucose measurement (m ass/volume)Ordered By: Yesika Faust on 01-18-2025 Glucose [Mass/Vol] 84 mg/dL 70-99 [facility] Serum or plasma alanine vela otransferase (ALT) measurementOrdered By: Yesika Faust on 01-18-2025 ALT [Catalytic activity/Vol] 14 U/L <35 [facility] Serum or plasma albumin madi urement (mass/volume)Ordered By: Yesika Faust on 01-18-2025 Albumin [Mass/Vol] 3.7 g/dL 3.4-4.8 [facility] Serum or plasma alkaline mariaelena sphatase measurementOrdered By: Yesika Faust on 01-18-2025 ALP [Catalytic activity/Vol] 106 U/L High 35-104 [facility] Serum or plasma calcium madi urement (mass/volume)Ordered By: Yesika Faust on 01-18-2025 Calcium [Mass/Vol] 9.1 mg/dL 7.6-11.0 [facility] Serum or plasma urea nitroge n measurement (mass/volume)Ordered By: Yesika Faust on 01-18-2025 Urea nitrogen [Mass/Vol] 27 mg/dL High 4-19 [facility] Sodium levelOrdered By: Jed Faust on 01-18-2025 Sodium [Moles/Vol] 141 mmol/L 133-145 [facility] Total proteinOrdered By: Randall Faust on 01-18-2025 Protein [Mass/Vol] 6.1 g/dL 5.9-8.4 [facility] White blood cell (WBC) count Ordered By: Yesika Faust on 01-18-2025 WBC (Bld) [#/Vol] 6.4 10*3/uL 4.4-11.0 [facility] Bilirubin Test strip Ql (U)O rdered By: Yesika Faust on 01-14-2025 Bilirubin Ql (U) Negative Negative [facility] Ketones Test strip Ql (U)Ord ered By: Yesika Faust on 01-14-2025 Ketones Ql (U) Negative Negative [facility] Nitrite Test strip Ql (U)Ord ered By: Yesika Faust on 01-14-2025 Nitrite Ql (U) Negative Negative [facility] Protein Test strip Ql (U)Ord ered By: Yesika Faust on 01-14-2025 Protein Ql (U) 30 mg/dl High Negative [facility] Urine clarityOrdered By: Randall Faust on 01-14-2025 Clarity (U) Cloudy Clear [facility] Urine color determinationOrd ered By: Yesika Faust on 01-14-2025 Color (U) Yellow Yellow [facility] Urine cultureOrdered By: Randall Faust on 01-14-2025 Bacteria identified Cx Nom (U) Proteus mirabilis Abnormal [facility] Urine glucose detectionOrder ed By: Yesika Faust on 01-14-2025 Glucose Ql (U) Normal mg/dl Normal [facility] Urine leukocyte esterase det ection by dipstickOrdered By: Yesika Faust on 01-14-2025 Leukocyte esterase Test strip Ql (U) 500 /ul High Negative [facility] Urine pHOrdered By: Fernando Faust on 01-14-2025 pH (U) 7.0 [pH] 5.0 - 8.0 [facility] Urine specific gravity measu rementOrdered By: Yesika Faust on 01-14-2025 Specific gravity (U) [Rel density] 1.010 1.002-1.03 0 [facility] Urine urobilinogen measureme ntOrdered By: Yesika Faust on 01-14-2025 Urobilinogen Ql (U) Normal mg/dl Normal [facility] Absolute lymphocyte countOrd ered By: Yesika Faust on 01-12-2025 Lymphocytes Auto (Unsp spec) [#/Vol] 1.66 10*3/uL 0.83-4.51 [facility] Absolute neutrophil countOrd ered By: Yesika Faust on 01-12-2025 Neutrophils (Bld) [#/Vol] 3.2 10*3/uL 2.0-7.7 [facility] Anion gap in Serum or Plasma Ordered By: Yesika Faust on 01-12-2025 Anion gap [Moles/Vol] 13 mmol/L 5-15 [facility] Automated lymphocyte count a s percentage of total leukocytesOrdered By: Yesika Faust on 01-12-2025 Lymphocytes/100 WBC Auto (Unsp spec) 27.6 % - [facility] BUN/creatinine ratioOrdered By: Yesika Faust on 01-12-2025 Urea nitrogen/Creatinine [Mass ratio] 36.9 mg/mg High 10-20 [facility] Basophil percentageOrdered B y: Yesika Faust on 01-12-2025 Basophils/100 WBC (Bld) 0.8 % 0-1 [facility] Bilirubin directOrdered By: Yesika Faust on 01-12-2025 Bilirubin.direct [Mass/Vol] 0.11 mg/dL 0.00-0.30 [facility] Bilirubin, totalOrdered By: Yesika Faust on 01-12-2025 Bilirubin [Mass/Vol] 0.24 mg/dL 0.00-1.30 [facility] Carbon dioxide, total [Moles /volume] in Central venous bloodOrdered By: Yesika Faust on 01-12-2025 CO2 [Moles/Vol] 22.3 mmol/L 21.0-32.0 [facility] Chloride assayOrdered By: Tad Faust on 01-12-2025 Chloride [Moles/Vol] 106 mmol/L 98-108 [facility] Eosinophil percentageOrdered By: Yesika Faust on 01-12-2025 Eosinophils/100 WBC (Bld) 7.2 % High 0-5 [facility] Erythrocyte distribution wid th ratioOrdered By: Yesika Faust on 01-12-2025 Erythrocyte distribution width (RBC) [Ratio] 13.5 % 11.6-14.6 [facility] Erythrocyte distribution wid th standard deviationOrdered By: Yesika Faust on 01-12-2025 Erythrocyte distribution width (RBC) [Ratio] 47.9 fl High 35.1-43.9 [facility] Glomerular filtration rate ( GFR) estimation/1.73 sq m using serum, plasma, or whole bOrdered By: Yesika Faust on 01-12-2025 GFR/1.73 sq M.predicted among non-blacks MDRD (S/P/Bld) [Vol rate/Area] 84 mL/min/{1.73_m2} >60 [facility] Comment on above: mL/min/1.73m2 CKD-EP I Creatinine Equation (2020) Hematocrit Auto (Bld) [Volum e fraction]Ordered By: Yesika Faust on 01-12-2025 Hematocrit (Bld) [Volume fraction] 40.4 % 37-47 [facility] Hemoglobin measurementOrdere d By: Yesika Faust on 01-12-2025 Hemoglobin (Bld) [Mass/Vol] 13.3 g/dL 12.0-15.0 [facility] Immature granulocytes/100 WB C Auto (Bld)Ordered By: Yesika Faust on 01-12-2025 Immature granulocytes/100 WBC (Bld) 0.300 % 0.0-0.9 [facility] Comment on above: IG% - Immature Granu locytes (promyelocytes, myelocytes and metamyelocytes) > 1% indicates that a LEFT SHIFT is Present. Laboratory - Chemistry and C hemistry - challengeOrdered By: Yesika Faust on 01-12-2025 AST [Catalytic activity/Vol] 16 U/L <32 [facility] MCV (mean corpuscular volume ) determinationOrdered By: Yesika Faust on 01-12-2025 MCV (RBC) [Entitic vol] 97.1 fL 81-99 [facility] Mean corpuscular hemoglobin (MCH) determinationOrdered By: Yesika Faust on 01-12-2025 MCH (RBC) [Entitic mass] 32.0 pg 27.0-32.0 [facility] Mean corpuscular hemoglobin concentration (MCHC) determinationOrdered By: Yesika Faust on 01-12-2025 MCHC (RBC) [Mass/Vol] 32.9 g/dL 32-36 [facility] Mean platelet volume determi nationOrdered By: Yesika Faust on 01-12-2025 Platelet mean volume (Bld) [Entitic vol] 10.7 fL 6.2-12.0 [facility] Monocyte percentageOrdered B y: Yesika Faust on 01-12-2025 Monocytes/100 WBC (Bld) 10.8 % High 0-10 [facility] Neutrophil percentageOrdered By: Yesika Faust on 01-12-2025 Neutrophils/100 WBC (Bld) 53.3 % 47-70 [facility] Nucleated red blood cell per centageOrdered By: Yesika Faust on 01-12-2025 Nucleated RBC/100 WBC (Bld) [Ratio] 0 % 0-5 [facility] Platelet countOrdered By: Tad Faust on 01-12-2025 Platelets (Bld) [#/Vol] 233 10*3/uL 150-450 [facility] Potassium measurement (mass/ volume)Ordered By: Yesika Faust on 01-12-2025 Potassium (Unsp spec) [Mass/Vol] 4.4 mmol/L 3.3-5.1 [facility] RBC Auto (Bld) [#/Vol]Ordere d By: Yesika Faust on 01-12-2025 RBC (Bld) [#/Vol] 4.16 10*6/uL Low 4.2-5.4 [facility] Serum creatinine measurement (mass/volume)Ordered By: Yesika Faust on 01-12-2025 Creatinine [Mass/Vol] 0.71 mg/dL 0.70-1.20 [facility] Serum globulin measurementOr dered By: Yesika Faust on 01-12-2025 Globulin (S) [Mass/Vol] 2.2 g/dL 2.2-4.2 [facility] Serum glucose measurement (m ass/volume)Ordered By: Yesika Faust on 01-12-2025 Glucose [Mass/Vol] 95 mg/dL 70-99 [facility] Serum or plasma alanine vela otransferase (ALT) measurementOrdered By: Yesika Faust on 01-12-2025 ALT [Catalytic activity/Vol] 12 U/L <35 [facility] Serum or plasma albumin madi urement (mass/volume)Ordered By: Yesika Faust on 01-12-2025 Albumin [Mass/Vol] 3.5 g/dL 3.4-4.8 [facility] Serum or plasma alkaline mariaelena sphatase measurementOrdered By: Yesika Faust on 01-12-2025 ALP [Catalytic activity/Vol] 110 U/L High 35-104 [facility] Serum or plasma calcium madi urement (mass/volume)Ordered By: Yesika Faust on 01-12-2025 Calcium [Mass/Vol] 9.0 mg/dL 7.6-11.0 [facility] Serum or plasma urea nitroge n measurement (mass/volume)Ordered By: Yesika Faust on 01-12-2025 Urea nitrogen [Mass/Vol] 26 mg/dL High 4-19 [facility] Sodium levelOrdered By: Jed Faust on 01-12-2025 Sodium [Moles/Vol] 142 mmol/L 133-145 [facility] Total proteinOrdered By: Randall Faust on 01-12-2025 Protein [Mass/Vol] 5.7 g/dL Low 5.9-8.4 [facility] White blood cell (WBC) count Ordered By: Yesika Faust on 01-12-2025 WBC (Bld) [#/Vol] 6.0 10*3/uL 4.4-11.0 [facility] Absolute lymphocyte countOrd ered By: Yesika Faust on 12-14-2024 Lymphocytes Auto (Unsp spec) [#/Vol] 2.70 10*3/uL 0.83-4.51 [facility] Absolute neutrophil countOrd ered By: Yesika Faust on 12-14-2024 Neutrophils (Bld) [#/Vol] 4.2 10*3/uL 2.0-7.7 [facility] Anion gap in Serum or Plasma Ordered By: Yesika Faust on 12-14-2024 Anion gap [Moles/Vol] 12 mmol/L 5-15 [facility] Automated lymphocyte count a s percentage of total leukocytesOrdered By: Yesika Scoutkathierafaela on 12-14-2024 Lymphocytes/100 WBC Auto (Unsp spec) 33.0 % 19-41 [facility] BUN/creatinine ratioOrdered By: Yesika Faust on 12-14-2024 Urea nitrogen/Creatinine [Mass ratio] 30.0 mg/mg High 10-20 [facility] Basophil percentageOrdered B y: Yesika Faust on 12-14-2024 Basophils/100 WBC (Bld) 1.0 % 0-1 [facility] Carbon dioxide, total [Moles /volume] in Central venous bloodOrdered By: Yesika Scoutkathierafaela on 12-14-2024 CO2 [Moles/Vol] 25.1 mmol/L 21.0-32.0 [facility] Chloride assayOrdered By: Tad Faust on 12-14-2024 Chloride [Moles/Vol] 103 mmol/L 98-108 [facility] Eosinophil percentageOrdered By: Yesika Faust on 12-14-2024 Eosinophils/100 WBC (Bld) 4.4 % 0-5 [facility] Erythrocyte distribution wid th (RBC) [Ratio]Ordered By: Yesika Faust on 12-14-2024 Erythrocyte distribution width (RBC) [Entitic vol] 45.8 fL High 35.1-43.9 [facility] Erythrocyte distribution wid th ratioOrdered By: Yesika Faust on 12-14-2024 Erythrocyte distribution width (RBC) [Ratio] 13.2 % 11.6-14.6 [facility] Erythrocyte distribution wid th standard deviationOrdered By: Yesika Faust on 12-14-2024 Erythrocyte distribution width (RBC) [Ratio] 45.8 fl High 35.1-43.9 [facility] GFR/1.73 sq M.predicted giorgio g non-blacks MDRD (S/P/Bld) [Vol rate/Area]Ordered By: Yesika Faust on 12-14-2024 Estimated GFR (MDRD) Non-Af Amer 76 >60 [facility] Comment on above: mL/min/1.73m2 CKD-EP I Creatinine Equation (2020) Glomerular filtration rate ( GFR) estimation/1.73 sq m using serum, plasma, or whole bOrdered By: Yesika Faust on 12-14-2024 GFR/1.73 sq M.predicted among non-blacks MDRD (S/P/Bld) [Vol rate/Area] 76 mL/min/{1.73_m2} >60 [facility] Comment on above: mL/min/1.73m2 CKD-EP I Creatinine Equation (2020) Hematocrit Auto (Bld) [Volum e fraction]Ordered By: Yesika Faust on 12-14-2024 Hematocrit (Bld) [Volume fraction] 46.6 % 37-47 [facility] Hemoglobin measurementOrdere d By: Yesika Faust on 12-14-2024 Hemoglobin (Bld) [Mass/Vol] 15.2 g/dL High 12.0-15.0 [facility] Immature granulocytes/100 WB C Auto (Bld)Ordered By: Yesika Faust on 12-14-2024 Immature granulocytes/100 WBC (Bld) 0.500 % 0.0-0.9 [facility] Comment on above: IG% - Immature Granu locytes (promyelocytes, myelocytes and metamyelocytes) > 1% indicates that a LEFT SHIFT is Present. Lymphocytes Auto (Unsp spec) [#/Vol]Ordered By: [facility] Butterfieldrafaela on 12-14-2024 Lymphocytes (Bld) [#/Vol] 2.70 10*3/uL 0.83-4.51 [facility] Lymphocytes/100 WBC Auto (Un sp spec)Ordered By: enriquetaduboismacarena Faust on 12-14-2024 Lymphocytes/100 WBC (Bld) 33.0 % 19-41 [facility] MCV (mean corpuscular volume ) determinationOrdered By: Yesika Faust on 12-14-2024 MCV (RBC) [Entitic vol] 94.7 fL 81-99 [facility] Mean corpuscular hemoglobin (MCH) determinationOrdered By: [facility] on 12-14-2024 MCH (RBC) [Entitic mass] 30.9 pg 27.0-32.0 [facility] Mean corpuscular hemoglobin concentration (MCHC) determinationOrdered By: enriquetaduboismacarena Faust on 12-14-2024 MCHC (RBC) [Mass/Vol] 32.6 g/dL 32-36 [facility] Mean platelet volume determi nationOrdered By: [facility] Faust on 12-14-2024 Platelet mean volume (Bld) [Entitic vol] 10.6 fL 6.2-12.0 [facility] Monocyte percentageOrdered B y: Yesika Faust on 12-14-2024 Monocytes/100 WBC (Bld) 9.7 % 0-10 [facility] Neutrophil percentageOrdered By: ky Faust on 12-14-2024 Neutrophils/100 WBC (Bld) 51.4 % 47-70 [facility] Nucleated red blood cell per centageOrdered By: Yesika Faust on 12-14-2024 Nucleated RBC/100 WBC (Bld) [Ratio] 0 % 0-5 [facility] Platelet countOrdered By: Tad Faust on 12-14-2024 Platelets (Bld) [#/Vol] 268 10*3/uL 150-450 [facility] Potassium (Unsp spec) [Mass/ Vol]Ordered By: Yesika Faust on 12-14-2024 Potassium [Moles/Vol] 4.3 mmol/L 3.3-5.1 [facility] Potassium measurement (mass/ volume)Ordered By: Yesika Faust on 12-14-2024 Potassium (Unsp spec) [Mass/Vol] 4.3 mmol/L 3.3-5.1 [facility] RBC Auto (Bld) [#/Vol]Ordere d By: Yesika Faust on 12-14-2024 RBC (Bld) [#/Vol] 4.92 10*6/uL 4.2-5.4 [facility] Serum creatinine measurement (mass/volume)Ordered By: Yesika Faust on 12-14-2024 Creatinine [Mass/Vol] 0.76 mg/dL 0.70-1.20 [facility] Serum glucose measurement (m ass/volume)Ordered By: Yesika Faust on 12-14-2024 Glucose [Mass/Vol] 105 mg/dL High 70-99 [facility] Serum or plasma calcium madi urement (mass/volume)Ordered By: Yesika Faust on 12-14-2024 Calcium [Mass/Vol] 9.7 mg/dL 7.6-11.0 [facility] Serum or plasma urea nitroge n measurement (mass/volume)Ordered By: Yesika Faust on 12-14-2024 Urea nitrogen [Mass/Vol] 23 mg/dL High 4-19 [facility] Sodium levelOrdered By: eJd Faust on 12-14-2024 Sodium [Moles/Vol] 141 mmol/L 133-145 [facility] White blood cell (WBC) count Ordered By: Yesika Faust on 12-14-2024 WBC (Bld) [#/Vol] 8.2 10*3/uL 4.4-11.0 [facility] Absolute lymphocyte countOrd ered By: ky Faust on 11-14-2024 Lymphocytes Auto (Unsp spec) [#/Vol] 2.15 10*3/uL 0.83-4.51 [facility] Absolute neutrophil countOrd ered By: ky Faust on 11-14-2024 Neutrophils (Bld) [#/Vol] 4.8 10*3/uL 2.0-7.7 [facility] Automated lymphocyte count a s percentage of total leukocytesOrdered By: Yesika Faust on 11-14-2024 Lymphocytes/100 WBC Auto (Unsp spec) 25.7 % 19-41 [facility] BUN/creatinine ratioOrdered By: Yesika Faust on 11-14-2024 Urea nitrogen/Creatinine [Mass ratio] 36.8 mg/mg High 10-20 [facility] Basophil percentageOrdered B y: Yesika Faust on 11-14-2024 Basophils/100 WBC (Bld) 1.0 % 0-1 [facility] Carbon dioxide measurementOr dered By: Yesika Faust on 11-14-2024 CO2 [Moles/Vol] 27.6 mmol/L 22.0-29.0 [facility] Chloride measurementOrdered By: enriquetaduboismacarena Faust on 11-14-2024 Chloride [Moles/Vol] 101 mmol/L 96-108 [facility] Eosinophil percentageOrdered By: ky Faust on 11-14-2024 Eosinophils/100 WBC (Bld) 7.9 % High 0-5 [facility] Erythrocyte distribution wid th (RBC) [Ratio]Ordered By: Yesika Faust on 11-14-2024 Erythrocyte distribution width (RBC) [Entitic vol] 46.1 fL High 35.1-43.9 [facility] Erythrocyte distribution wid th ratioOrdered By: enriquetaduboismacarena Faust on 11-14-2024 Erythrocyte distribution width (RBC) [Ratio] 12.9 % 11.6-14.6 [facility] Erythrocyte distribution wid th standard deviationOrdered By: Yesika Fauts on 11-14-2024 Erythrocyte distribution width (RBC) [Ratio] 46.1 fl High 35.1-43.9 [facility] GFR/1.73 sq M.predicted giorgio g non-blacks MDRD (S/P/Bld) [Vol rate/Area]Ordered By: Yesika Faust on 11-14-2024 Estimated GFR (MDRD) Non-Af Amer 86 >60 [facility] Comment on above: mL/min/1.73m2 CKD-EP I Creatinine Equation (2020) Glomerular filtration rate ( GFR) estimation/1.73 sq m using serum, plasma, or whole bOrdered By: Yesika Faust on 11-14-2024 GFR/1.73 sq M.predicted among non-blacks MDRD (S/P/Bld) [Vol rate/Area] 86 mL/min/{1.73_m2} >60 [facility] Comment on above: mL/min/1.73m2 CKD-EP I Creatinine Equation (2020) Hematocrit Auto (Bld) [Volum e fraction]Ordered By: Yesika Faust on 11-14-2024 Hematocrit (Bld) [Volume fraction] 46.9 % 37-47 [facility] Hemoglobin measurementOrdere d By: Yesika Faust on 11-14-2024 Hemoglobin (Bld) [Mass/Vol] 15.0 g/dL 12.0-15.0 [facility] Immature granulocytes/100 WB C Auto (Bld)Ordered By: Yesika Faust on 11-14-2024 Immature granulocytes/100 WBC (Bld) 0.500 % 0.0-0.9 [facility] Comment on above: IG% - Immature Granu locytes (promyelocytes, myelocytes and metamyelocytes) > 1% indicates that a LEFT SHIFT is Present. Lymphocytes Auto (Unsp spec) [#/Vol]Ordered By: ky Faust on 11-14-2024 Lymphocytes (Bld) [#/Vol] 2.15 10*3/uL 0.83-4.51 [facility] Lymphocytes/100 WBC Auto (Un sp spec)Ordered By: Yesika Faust on 11-14-2024 Lymphocytes/100 WBC (Bld) 25.7 % 19-41 [facility] MCV (mean corpuscular volume ) determinationOrdered By: Yesika Faust on 11-14-2024 MCV (RBC) [Entitic vol] 96.9 fL 81-99 [facility] Mean corpuscular hemoglobin (MCH) determinationOrdered By: Yesika Faust on 11-14-2024 MCH (RBC) [Entitic mass] 31.0 pg 27.0-32.0 [facility] Mean corpuscular hemoglobin concentration (MCHC) determinationOrdered By: Yesika Faust on 11-14-2024 MCHC (RBC) [Mass/Vol] 32.0 g/dL 32-36 [facility] Mean platelet volume determi nationOrdered By: Yesika Faust on 11-14-2024 Platelet mean volume (Bld) [Entitic vol] 10.4 fL 6.2-12.0 [facility] Monocyte percentageOrdered B y: Yesika Faust on 11-14-2024 Monocytes/100 WBC (Bld) 7.9 % 0-10 [facility] Neutrophil percentageOrdered By: Yesika Faust on 11-14-2024 Neutrophils/100 WBC (Bld) 57.0 % 47-70 [facility] Nucleated red blood cell per centageOrdered By: Yesika Faust on 11-14-2024 Nucleated RBC/100 WBC (Bld) [Ratio] 0 % 0-5 [facility] Platelet countOrdered By: Tad enriquetadenae Faust on 11-14-2024 Platelets (Bld) [#/Vol] 269 10*3/uL 150-450 [facility] RBC Auto (Bld) [#/Vol]Ordere d By: Yesika Faust on 11-14-2024 RBC (Bld) [#/Vol] 4.84 10*6/uL 4.2-5.4 [facility] Serum creatinine measurement (mass/volume)Ordered By: Yesika Faust on 11-14-2024 Creatinine [Mass/Vol] 0.65 mg/dL Low 0.70-1.20 [facility] Serum glucose measurement (m ass/volume)Ordered By: Yesika Faust on 11-14-2024 Glucose [Mass/Vol] 97 mg/dL 70-99 [facility] Serum or plasma anion gap de termination (moles/volume)Ordered By: Yesika Faust on 11-14-2024 Anion gap [Moles/Vol] 12 mmol/L 5-15 [facility] Serum or plasma calcium madi urement (mass/volume)Ordered By: Yesika Faust on 11-14-2024 Calcium [Mass/Vol] 9.4 mg/dL 7.6-11.0 [facility] Serum or plasma potassium me asurementOrdered By: Yesika Faust on 11-14-2024 Potassium [Moles/Vol] 4.3 mmol/L 3.3-5.1 [facility] Comment on above: Hemolysis present, R esults could be affected. Serum or plasma sodium measu rement (moles/volume)Ordered By: Yesika Faust on 11-14-2024 Sodium [Moles/Vol] 141 mmol/L 133-145 [facility] Serum or plasma urea nitroge n measurement (mass/volume)Ordered By: Yesika Faust on 11-14-2024 Urea nitrogen [Mass/Vol] 24 mg/dL High 4-19 [facility] White blood cell (WBC) count Ordered By: Yesika Faust on 11-14-2024 WBC (Bld) [#/Vol] 8.4 10*3/uL 4.4-11.0 [facility] Absolute lymphocyte countOrd ered By: Yesika Faust on 10-17-2024 Lymphocytes Auto (Unsp spec) [#/Vol] 1.81 10*3/uL 0.83-4.51 [facility] Absolute neutrophil countOrd ered By: Yesika Faust on 10-17-2024 Neutrophils (Bld) [#/Vol] 3.3 10*3/uL 2.0-7.7 [facility] Automated lymphocyte count a s percentage of total leukocytesOrdered By: Yesika Faust on 10-17-2024 Lymphocytes/100 WBC Auto (Unsp spec) 26.5 % 19-41 [facility] Basophil percentageOrdered B y: Yesika Faust on 10-17-2024 Basophils/100 WBC (Bld) 0.7 % 0-1 [facility] Bilirubin directOrdered By: Yesika Faust on 10-17-2024 Bilirubin.direct [Mass/Vol] 0.09 mg/dL 0.00-0.30 [facility] Bilirubin, totalOrdered By: Yesika Faust on 10-17-2024 Bilirubin [Mass/Vol] 0.20 mg/dL 0.20-1.00 [facility] Comment on above: For patients on eltr ombopag therapy, use of Dimension [place] TBIL is not recommended. Blood urea nitrogen (BUN)/cr eatinine ratioOrdered By: Yesika Faust on 10-17-2024 Urea nitrogen/Creatinine [Mass ratio] 49.3 mg/mg High 10-20 [facility] Carbon dioxide measurementOr dered By: Yesika Faust on 10-17-2024 CO2 [Moles/Vol] 29.0 mmol/L 21.0-32.0 [facility] Chloride measurementOrdered By: Yesika Faust on 10-17-2024 Chloride [Moles/Vol] 106 mmol/L 98-107 [facility] Eosinophil percentageOrdered By: Yesika Faust on 10-17-2024 Eosinophils/100 WBC (Bld) 14.6 % High 0-5 [facility] Erythrocyte distribution wid th (RBC) [Ratio]Ordered By: Yesika Faust on 10-17-2024 Erythrocyte distribution width (RBC) [Entitic vol] 46.3 fL High 35.1-43.9 [facility] Erythrocyte distribution wid th ratioOrdered By: Yesika Faust on 10-17-2024 Erythrocyte distribution width (RBC) [Ratio] 13.0 % 11.6-14.6 [facility] Erythrocyte distribution wid th standard deviationOrdered By: Yesika Faust on 10-17-2024 Erythrocyte distribution width (RBC) [Ratio] 46.3 fl High 35.1-43.9 [facility] Estimated glomerular filtrat ion rate (GFR) AmericanOrdered By: Tadenriquetasaeidmacarena Faust on 10-17-2024 Estimated GFR (MDRD) Amer 120 mL/min >60 [facility] Comment on above: GFR Calc Glomerular filtration rate ( GFR) estimationOrdered By: Yesika Faust on 10-17-2024 Estimated GFR (MDRD) Non-Af Amer 99 mL/min >60 [facility] Comment on above: Non- GFR Calc GFR/1.73 sq M.predicted among non-blacks MDRD (S/P/Bld) [Vol rate/Area] 99 mL/min/{1.73_m2} >60 [facility] Comment on above: Non- GFR Calc Glucose measurementOrdered B y: Jedsaeidmacarena Faust on 10-17-2024 Glucose [Mass/Vol] 86 mg/dL 74-106 [facility] Hematocrit Auto (Bld) [Volum e fraction]Ordered By: ky Faust on 10-17-2024 Hematocrit (Bld) [Volume fraction] 41.4 % 37-47 [facility] Hemoglobin measurementOrdere d By: Tadenriquetasaeidmacarena Faust on 10-17-2024 Hemoglobin (Bld) [Mass/Vol] 13.5 g/dL 12.0-15.0 [facility] Immature granulocytes/100 WB C Auto (Bld)Ordered By: Yesika Faust on 10-17-2024 Immature granulocytes/100 WBC (Bld) 0.400 % 0.0-0.9 [facility] Comment on above: IG% - Immature Granu locytes (promyelocytes, myelocytes and metamyelocytes) > 1% indicates that a LEFT SHIFT is Present. Laboratory - Chemistry and C hemistry - challengeOrdered By: Yesika Faust on 10-17-2024 AST [Catalytic activity/Vol] 12 U/L Low 15-37 [facility] Lymphocytes Auto (Unsp spec) [#/Vol]Ordered By: Yesika Faust on 10-17-2024 Lymphocytes (Bld) [#/Vol] 1.81 10*3/uL 0.83-4.51 [facility] Lymphocytes/100 WBC Auto (Un sp spec)Ordered By: Yesika Faust on 10-17-2024 Lymphocytes/100 WBC (Bld) 26.5 % 19-41 [facility] MCV (mean corpuscular volume ) determinationOrdered By: Yesika Faust on 10-17-2024 MCV (RBC) [Entitic vol] 98.6 fL 81-99 [facility] Mean corpuscular hemoglobin (MCH) determinationOrdered By: Yesika Faust on 10-17-2024 MCH (RBC) [Entitic mass] 32.1 pg High 27.0-32.0 [facility] Mean corpuscular hemoglobin concentration (MCHC) determinationOrdered By: Yesika Faust on 10-17-2024 MCHC (RBC) [Mass/Vol] 32.6 g/dL 32-36 [facility] Mean platelet volume determi nationOrdered By: Yesika Faust on 10-17-2024 Platelet mean volume (Bld) [Entitic vol] 10.6 fL 6.2-12.0 [facility] Monocyte percentageOrdered B y: Yesika Faust on 10-17-2024 Monocytes/100 WBC (Bld) 9.5 % 0-10 [facility] Neutrophil percentageOrdered By: Yesika Faust on 10-17-2024 Neutrophils/100 WBC (Bld) 48.3 % 47-70 [facility] Nucleated red blood cell per centageOrdered By: Yesika Faust on 10-17-2024 Nucleated RBC/100 WBC (Bld) [Ratio] 0 % 0-5 [facility] Platelet countOrdered By: Tad Faust on 10-17-2024 Platelets (Bld) [#/Vol] 232 10*3/uL 150-450 [facility] Potassium measurementOrdered By: Yesika Fasut on 10-17-2024 Potassium [Moles/Vol] 4.0 mmol/L 3.5-5.1 [facility] RBC Auto (Bld) [#/Vol]Ordere d By: Yesika Faust on 10-17-2024 RBC (Bld) [#/Vol] 4.20 10*6/uL 4.2-5.4 [facility] Serum anion gap measurementO rdered By: Yesika Faust on 10-17-2024 Anion gap [Moles/Vol] 5 mmol/L 5-15 [facility] Serum globulin measurementOr dered By: Yesika Faust on 10-17-2024 Globulin (S) [Mass/Vol] 3.2 g/dL 2.2-4.2 [facility] Serum or plasma alanine vela otransferase (ALT) measurementOrdered By: Yesika Faust on 10-17-2024 ALT [Catalytic activity/Vol] 19 U/L 13-56 [facility] Serum or plasma albumin madi urement (mass/volume)Ordered By: Yesika Faust on 10-17-2024 Albumin [Mass/Vol] 3.1 g/dL Low 3.2-5.0 [facility] Serum or plasma alkaline mariaelena sphatase measurementOrdered By: Yesika Faust on 10-17-2024 ALP [Catalytic activity/Vol] 108 U/L 45-117 [facility] Serum or plasma calcium madi urement (mass/volume)Ordered By: Yesika Faust on 10-17-2024 Calcium [Mass/Vol] 9.1 mg/dL 8.5-10.1 [facility] Serum or plasma creatinine m easurement (mass/volume)Ordered By: Yesika Faust on 10-17-2024 Creatinine [Mass/Vol] 0.61 mg/dL 0.55-1.02 [facility] Comment on above: The validity of the calculated GFR & GFRAA in patients over 70 years has not been determined. Clinical correlation is essential. Serum or plasma urea nitroge n measurement (mass/volume)Ordered By: Yesika Faust on 10-17-2024 Urea nitrogen [Mass/Vol] 30 mg/dL High 7-18 [facility] Sodium levelOrdered By: Jed Faust on 10-17-2024 Sodium [Moles/Vol] 140 mmol/L 136-145 [facility] Total proteinOrdered By: Randall montsemacarena Faust on 10-17-2024 Protein [Mass/Vol] 6.3 g/dL Low 6.4-8.2 [facility] White blood cell (WBC) count Ordered By: Yesika Faust on 10-17-2024 WBC (Bld) [#/Vol] 6.8 10*3/uL 4.4-11.0 [facility] Bilirubin Test strip Ql (U)O rdered By: Yesika Faust on 10-14-2024 Bilirubin Ql (U) Negative Negative [facility] Epithelial cells.squamous LM Ql (Urine sed)Ordered By: Yesika Faust on 10-14-2024 Epithelial cells.squamous LM.HPF (Urine sed) [#/Area] 0 /[HPF] 5-10 [facility] Glucose Ql (U)Ordered By: Tad Faust on 10-14-2024 Urine Glucose (UA) Normal mg/dl Normal [facility] Ketones Test strip Ql (U)Ord ered By: Yesika Faust on 10-14-2024 Ketones Ql (U) Negative Negative [facility] Microscopic analysis of urin e for red blood cells (RBC)Ordered By: Yesika Faust on 10-14-2024 Microscopic analysis of urine for red blood cells (RBC) 0 SEEN /hpf 0-5 [facility] Urine RBC 0 SEEN /hpf 0-5 [facility] Mucus LM Ql (Urine sed)Order ed By: Yesika Faust on 10-14-2024 Mucus Ql (Urine sed) 0 SEEN /hpf [facility] Nitrite Test strip Ql (U)Ord ered By: Yesika Faust on 10-14-2024 Nitrite Ql (U) Positive High Negative [facility] Protein Test strip Ql (U)Ord ered By: Yesika Faust on 10-14-2024 Protein Ql (U) 15 mg/dl High Negative [facility] Squamous epithelial cells de tection in urine sediment by light microscopyOrdered By: Yesika Faust on 10-14-2024 Epithelial cells.squamous LM Ql (Urine sed) 0 SEEN /hpf 5-10 [facility] Triple phosphate crystals LM Ql (Urine sed)Ordered By: Yesika Faust on 10-14-2024 Urine Triple Phosphate Crystals 1+ /hpf [facility] Triple phosphate crystals de tection in urine sediment by light microscopyOrdered By: Yesika Faust on 10-14-2024 Triple phosphate crystals LM Ql (Urine sed) 1+ /hpf [facility] Urine blood detectionOrdered By: Yesika Faust on 10-14-2024 Urine Occult Blood Negative Negative [facility] Urine clarityOrdered By: Randall Faust on 10-14-2024 Clarity (U) Sl. Cloudy Clear [facility] Urine color determinationOrd ered By: Yesika Faust on 10-14-2024 Color (U) Yellow Yellow [facility] Urine cultureOrdered By: Randall Faust on 10-14-2024 Bacteria identified Cx Nom (U) Proteus mirabilis Abnormal [facility] Urine glucose detectionOrder ed By: Yesika Faust on 10-14-2024 Glucose Ql (U) Normal mg/dl Normal [facility] Urine leukocyte esterase det ection by dipstickOrdered By: Yesika Faust on 10-14-2024 Leukocyte esterase Test strip Ql (U) 25 /ul High Negative [facility] Urine pHOrdered By: Fernando Faust on 10-14-2024 pH (U) 9.0 [pH] 5.0 - 8.0 [facility] Urine sediment bacteria coun t by microscopy (number/high power field)Ordered By: Yesika Faust on 10-14-2024 Bacteria LM.HPF (Urine sed) [#/Area] 1 /[HPF] None Seen [facility] Urine specific gravity measu rementOrdered By: Yesika Faust on 10-14-2024 Specific gravity (U) [Rel density] 1.015 1.002-1.03 0 [facility] Urine urobilinogen measureme ntOrdered By: Yesika Faust on 10-14-2024 Urobilinogen Ql (U) Normal mg/dl Normal [facility] Urobilinogen Ql (U)Ordered B y: Jedsaeidmacarena Faust on 10-14-2024 Urine Urobilinogen Normal mg/dl Normal [facility] White blood cell countOrdere d By: Yesika Faust on 10-14-2024 Urine WBC 0 SEEN /hpf 0-5 [facility] White blood cell count 0 SEEN /hpf 0-5 [facility] Absolute neutrophil countOrd ered By: Yesika Faust on 09-16-2024 Neutrophils (Bld) [#/Vol] 4.4 10*3/uL 2.0-7.7 [facility] Basophil percentageOrdered B y: Yesika Faust on 09-16-2024 Basophils/100 WBC (Bld) 0.7 % 0-1 [facility] Blood urea nitrogen (BUN)/cr eatinine ratioOrdered By: Yesika Faust on 09-16-2024 Urea nitrogen/Creatinine [Mass ratio] 40.5 mg/mg High 10-20 [facility] Carbon dioxide measurementOr dered By: Yesika Faust on 09-16-2024 CO2 [Moles/Vol] 28.0 mmol/L 21.0-32.0 [facility] Chloride measurementOrdered By: Yesika Faust on 09-16-2024 Chloride [Moles/Vol] 106 mmol/L 98-107 [facility] Eosinophil percentageOrdered By: Yesika Faust on 09-16-2024 Eosinophils/100 WBC (Bld) 3.0 % 0-5 [facility] Erythrocyte distribution wid th (RBC) [Ratio]Ordered By: Yesika Faust on 09-16-2024 Erythrocyte distribution width (RBC) [Entitic vol] 48.3 fL High 35.1-43.9 [facility] Erythrocyte distribution wid th ratioOrdered By: Yesika Faust on 09-16-2024 Erythrocyte distribution width (RBC) [Ratio] 13.2 % 11.6-14.6 [facility] Estimated glomerular filtrat ion rate (GFR) AmericanOrdered By: Yesika Faust on 09-16-2024 Estimated GFR (MDRD) Amer 162 mL/min >60 [facility] Comment on above: GFR Calc Glomerular filtration rate ( GFR) estimationOrdered By: Yesika Faust on 09-16-2024 Estimated GFR (MDRD) Non-Af Amer 134 mL/min >60 [facility] Comment on above: Non- GFR Calc Glucose measurementOrdered B y: Yesika Faust on 09-16-2024 Glucose [Mass/Vol] 89 mg/dL 74-106 [facility] Hematocrit Auto (Bld) [Volum e fraction]Ordered By: Yesika aFust on 09-16-2024 Hematocrit (Bld) [Volume fraction] 38.9 % 37-47 [facility] Hemoglobin measurementOrdere d By: Yesika Faust on 09-16-2024 Hemoglobin (Bld) [Mass/Vol] 12.4 g/dL 12.0-15.0 [facility] Immature granulocytes/100 WB C Auto (Bld)Ordered By: Yesika Faust on 09-16-2024 Immature granulocytes/100 WBC (Bld) 0.300 % 0.0-0.9 [facility] Comment on above: IG% - Immature Granu locytes (promyelocytes, myelocytes and metamyelocytes) > 1% indicates that a LEFT SHIFT is Present. Lymphocytes Auto (Unsp spec) [#/Vol]Ordered By: Yesika Faust on 09-16-2024 Lymphocytes (Bld) [#/Vol] 1.59 10*3/uL 0.83-4.51 [facility] Lymphocytes/100 WBC Auto (Un sp spec)Ordered By: Yesika Faust on 09-16-2024 Lymphocytes/100 WBC (Bld) 23.1 % 19-41 [facility] MCV (mean corpuscular volume ) determinationOrdered By: Yesika Faust on 09-16-2024 MCV (RBC) [Entitic vol] 98.7 fL 81-99 [facility] Mean corpuscular hemoglobin (MCH) determinationOrdered By: Yesika Faust on 09-16-2024 MCH (RBC) [Entitic mass] 31.5 pg 27.0-32.0 [facility] Mean corpuscular hemoglobin concentration (MCHC) determinationOrdered By: Yesika Faust on 09-16-2024 MCHC (RBC) [Mass/Vol] 31.9 g/dL Low 32-36 [facility] Mean platelet volume determi nationOrdered By: Yesika Faust on 09-16-2024 Platelet mean volume (Bld) [Entitic vol] 10.6 fL 6.2-12.0 [facility] Monocyte percentageOrdered B y: Yesika Faust on 09-16-2024 Monocytes/100 WBC (Bld) 9.6 % 0-10 [facility] Neutrophil percentageOrdered By: Yesika Faust on 09-16-2024 Neutrophils/100 WBC (Bld) 63.3 % 47-70 [facility] Nucleated red blood cell per centageOrdered By: Yesika Faust on 09-16-2024 Nucleated RBC/100 WBC (Bld) [Ratio] 0 % 0-5 [facility] Platelet countOrdered By: Tad Faust on 09-16-2024 Platelets (Bld) [#/Vol] 241 10*3/uL 150-450 [facility] Potassium measurementOrdered By: Yesika Faust on 09-16-2024 Potassium [Moles/Vol] 3.8 mmol/L 3.5-5.1 [facility] RBC Auto (Bld) [#/Vol]Ordere d By: Yesika Faust on 09-16-2024 RBC (Bld) [#/Vol] 3.94 10*6/uL Low 4.2-5.4 [facility] Serum anion gap measurementO rdered By: Yesika Faust on 09-16-2024 Anion gap [Moles/Vol] 5 mmol/L 5-15 [facility] Serum or plasma calcium madi urement (mass/volume)Ordered By: Yesika Faust on 09-16-2024 Calcium [Mass/Vol] 8.8 mg/dL 8.5-10.1 [facility] Serum or plasma creatinine m easurement (mass/volume)Ordered By: Yesika Faust on 09-16-2024 Creatinine [Mass/Vol] 0.47 mg/dL Low 0.55-1.02 [facility] Comment on above: The validity of the calculated GFR & GFRAA in patients over 70 years has not been determined. Clinical correlation is essential. Serum or plasma urea nitroge n measurement (mass/volume)Ordered By: Yesika Faust on 09-16-2024 Urea nitrogen [Mass/Vol] 19 mg/dL High 7-18 [facility] Sodium levelOrdered By: Jed denae Christianne on 09-16-2024 Sodium [Moles/Vol] 139 mmol/L 136-145 [facility] White blood cell (WBC) count Ordered By: Yesika Faust on 09-16-2024 WBC (Bld) [#/Vol] 6.9 10*3/uL 4.4-11.0 [facility] Absolute neutrophil countOrd ered By: Yesika Faust on 08-16-2024 Neutrophils (Bld) [#/Vol] 3.4 10*3/uL 2.0-7.7 [facility] Basophil percentageOrdered B y: Yesika Faust on 08-16-2024 Basophils/100 WBC (Bld) 0.7 % 0-1 [facility] Blood urea nitrogen (BUN)/cr eatinine ratioOrdered By: Yesika Faust on 08-16-2024 Urea nitrogen/Creatinine [Mass ratio] 35.8 mg/mg High 10-20 [facility] Carbon dioxide measurementOr dered By: Yesika Faust on 08-16-2024 CO2 [Moles/Vol] 28.0 mmol/L 21.0-32.0 [facility] Chloride measurementOrdered By: Yesika Faust on 08-16-2024 Chloride [Moles/Vol] 110 mmol/L High 98-107 [facility] Eosinophil percentageOrdered By: Yesika Faust on 08-16-2024 Eosinophils/100 WBC (Bld) 3.1 % 0-5 [facility] Erythrocyte distribution wid th (RBC) [Ratio]Ordered By: Yesika Faust on 08-16-2024 Erythrocyte distribution width (RBC) [Entitic vol] 50.8 fL High 35.1-43.9 [facility] Erythrocyte distribution wid th ratioOrdered By: Yesika Faust on 08-16-2024 Erythrocyte distribution width (RBC) [Ratio] 14.0 % 11.6-14.6 [facility] Estimated glomerular filtrat ion rate (GFR) AmericanOrdered By: Yesika Faust on 08-16-2024 Estimated GFR (MDRD) Amer 141 mL/min >60 [facility] Comment on above: GFR Calc Glomerular filtration rate ( GFR) estimationOrdered By: Yesika Faust on 08-16-2024 Estimated GFR (MDRD) Non-Af Amer 116 mL/min >60 [facility] Comment on above: Non- GFR Calc Glucose measurementOrdered B y: Yesika Faust on 08-16-2024 Glucose [Mass/Vol] 85 mg/dL 74-106 [facility] Hematocrit Auto (Bld) [Volum e fraction]Ordered By: Yesika Faust on 08-16-2024 Hematocrit (Bld) [Volume fraction] 41.2 % 37-47 [facility] Hemoglobin measurementOrdere d By: Yesika Faust on 08-16-2024 Hemoglobin (Bld) [Mass/Vol] 12.9 g/dL 12.0-15.0 [facility] Immature granulocytes/100 WB C Auto (Bld)Ordered By: Yesika Faust on 08-16-2024 Immature granulocytes/100 WBC (Bld) 0.300 % 0.0-0.9 [facility] Comment on above: IG% - Immature Granu locytes (promyelocytes, myelocytes and metamyelocytes) > 1% indicates that a LEFT SHIFT is Present. Lymphocytes Auto (Unsp spec) [#/Vol]Ordered By: Yesika Faust on 08-16-2024 Lymphocytes (Bld) [#/Vol] 1.61 10*3/uL 0.83-4.51 [facility] Lymphocytes/100 WBC Auto (Un sp spec)Ordered By: Yesika Faust on 08-16-2024 Lymphocytes/100 WBC (Bld) 27.4 % 19-41 [facility] MCV (mean corpuscular volume ) determinationOrdered By: Yesika Faust on 08-16-2024 MCV (RBC) [Entitic vol] 99.0 fL 81-99 [facility] Mean corpuscular hemoglobin (MCH) determinationOrdered By: Yesika Faust on 08-16-2024 MCH (RBC) [Entitic mass] 31.0 pg 27.0-32.0 [facility] Mean corpuscular hemoglobin concentration (MCHC) determinationOrdered By: Yesika Faust on 08-16-2024 MCHC (RBC) [Mass/Vol] 31.3 g/dL Low 32-36 [facility] Mean platelet volume determi nationOrdered By: Yesika Faust on 08-16-2024 Platelet mean volume (Bld) [Entitic vol] 10.8 fL 6.2-12.0 [facility] Monocyte percentageOrdered B y: Yesika Faust on 08-16-2024 Monocytes/100 WBC (Bld) 10.5 % High 0-10 [facility] Neutrophil percentageOrdered By: Yesika Faust on 08-16-2024 Neutrophils/100 WBC (Bld) 58.0 % 47-70 [facility] Nucleated red blood cell per centageOrdered By: Yesika Faust on 08-16-2024 Nucleated RBC/100 WBC (Bld) [Ratio] 0 % 0-5 [facility] Platelet countOrdered By: Tad Faust on 08-16-2024 Platelets (Bld) [#/Vol] 242 10*3/uL 150-450 [facility] Potassium measurementOrdered By: Yesika Faust on 08-16-2024 Potassium [Moles/Vol] 3.9 mmol/L 3.5-5.1 [facility] RBC Auto (Bld) [#/Vol]Ordere d By: Yesika Faust on 08-16-2024 RBC (Bld) [#/Vol] 4.16 10*6/uL Low 4.2-5.4 [facility] Serum anion gap measurementO rdered By: Yesika Faust on 08-16-2024 Anion gap [Moles/Vol] 4 mmol/L Low 5-15 [facility] Serum or plasma calcium madi urement (mass/volume)Ordered By: Yesika Butterfieldkathierafaela on 08-16-2024 Calcium [Mass/Vol] 8.9 mg/dL 8.5-10.1 [facility] Serum or plasma creatinine m easurement (mass/volume)Ordered By: Yesika Faust on 08-16-2024 Creatinine [Mass/Vol] 0.53 mg/dL Low 0.55-1.02 [facility] Comment on above: The validity of the calculated GFR & GFRAA in patients over 70 years has not been determined. Clinical correlation is essential. Serum or plasma urea nitroge n measurement (mass/volume)Ordered By: Yesika Faust on 08-16-2024 Urea nitrogen [Mass/Vol] 19 mg/dL High 7-18 [facility] Sodium levelOrdered By: Jed denae Christianne on 08-16-2024 Sodium [Moles/Vol] 142 mmol/L 136-145 [facility] White blood cell (WBC) count Ordered By: Yesika Faust on 08-16-2024 WBC (Bld) [#/Vol] 5.9 10*3/uL 4.4-11.0 [facility] Absolute lymphocyte countOrd ered By: Yesika Faust on 11-17-2023 Lymphocytes Auto (Unsp spec) [#/Vol] 1.64 10*3/uL 0.83-4.51 [facility] Automated lymphocyte count a s percentage of total leukocytesOrdered By: Yesika Faust on 11-17-2023 Lymphocytes/100 WBC Auto (Unsp spec) 26.6 % 19-41 [facility] Basophil percentageOrdered B y: Yesika Faust on 11-17-2023 Basophils/100 WBC (Bld) 0.6 % 0-1 [facility] Chloride [Moles/Vol] 109 mmol/L 98-107 [facility] Eosinophils/100 WBC (Bld) 1.8 % 0-5 [facility] Glucose [Mass/Vol] 91 mg/dL 74-106 [facility] Hemoglobin (Bld) [Mass/Vol] 12.9 g/dL 12.0-15.0 [facility] Monocytes/100 WBC (Bld) 9.4 % 0-10 [facility] Neutrophils (Bld) [#/Vol] 3.8 10*3/uL 2.0-7.7 [facility] Neutrophils/100 WBC (Bld) 61.1 % 47-70 [facility] Potassium [Moles/Vol] 3.8 mmol/L 3.5-5.1 [facility] Sodium [Moles/Vol] 140 mmol/L 136-145 [facility] WBC (Bld) [#/Vol] 6.2 10*3/uL 4.4-11.0 [facility] Determination of erythrocyte mean corpuscular volume (MCV)Ordered By: Yesika aFust on 11-17-2023 MCV (RBC) [Entitic vol] 91.8 fL 81-99 [facility] Erythrocyte distribution wid th ratioOrdered By: [facility]rokeemac[facility] on 11-17-2023 Erythrocyte distribution width (RBC) [Ratio] 14.3 % 11.6-14.6 [facility] Erythrocyte distribution wid th standard deviationOrdered By: [facility] Scoutrafaela on 11-17-2023 Erythrocyte distribution width (RBC) [Entitic vol] 48.0 fL 35.1-43.9 [facility] Hematocrit Auto (Bld) [Volum e fraction]Ordered By: Jedduboismacarena Faust on 11-17-2023 Hematocrit (Bld) [Volume fraction] 39.3 % 37-47 [facility] Immature granulocytes/100 WB C Auto (Bld)Ordered By: ky Faust on 11-17-2023 Immature granulocytes/100 WBC (Bld) 0.500 % 0.0-0.9 [facility] Comment on above: IG% - Immature Granu locytes (promyelocytes, myelocytes and metamyelocytes) > 1% indicates that a LEFT SHIFT is Present. Laboratory - Chemistry and C hemistry - challengeOrdered By: Yesika Faust on 11-17-2023 CO2 [Moles/Vol] 28.0 mmol/L 21.0-32.0 [facility] Urea nitrogen/Creatinine [Mass ratio] 18.6 mg/mg 10-20 [facility] Laboratory - Hematology and Cell countsOrdered By: Yesika Faust on 11-17-2023 MCH (RBC) [Entitic mass] 30.1 pg 27.0-32.0 [facility] MCHC (RBC) [Mass/Vol] 32.8 g/dL 32-36 [facility] Nucleated RBC/100 WBC (Bld) [Ratio] 0 % 0-5 [facility] Platelet mean volume (Bld) [Entitic vol] 9.9 fL 6.2-12.0 [facility] Platelets (Bld) [#/Vol] 230 10*3/uL 150-450 [facility] No Panel InformationOrdered By: Yesika Faust on 11-17-2023 Estimated GFR (MDRD) Amer 94 mL/min >60 [facility] Comment on above: GFR Calc Estimated GFR (MDRD) Non-Af Amer 78 mL/min >60 [facility] Comment on above: Non- GFR Calc RBC Auto (Bld) [#/Vol]Ordere d By: Yesika Faust on 11-17-2023 RBC (Bld) [#/Vol] 4.28 10*6/uL 4.2-5.4 [facility] Serum or plasma calcium madi urement (mass/volume)Ordered By: Yesika Faust on 11-17-2023 Calcium [Mass/Vol] 9.2 mg/dL 8.5-10.1 [facility] Serum or plasma creatinine m easurement (mass/volume)Ordered By: Yesika Faust on 11-17-2023 Creatinine [Mass/Vol] 0.75 mg/dL 0.55-1.02 [facility] Comment on above: The validity of the calculated GFR & GFRAA in patients over 70 years has not been determined. Clinical correlation is essential. Serum or plasma urea nitroge n measurement (mass/volume)Ordered By: Yesika Faust on 11-17-2023 Urea nitrogen [Mass/Vol] 14 mg/dL 7-18 [facility] Thin prep Papanicolaou smear with manual screeningOrdered By: Yesika Faust on 11-17-2023 Thin prep Papanicolaou smear with manual screening 3 5-15 [facility] Absolute lymphocyte countOrd ered By: Yesika Faust on 08-18-2023 Lymphocytes Auto (Unsp spec) [#/Vol] 1.67 10*3/uL 0.83-4.51 [facility] Basophil percentageOrdered B y: Yesika Faust on 08-18-2023 Basophils/100 WBC (Bld) 0.7 % 0-1 [facility] Chloride [Moles/Vol] 109 mmol/L 98-107 [facility] Eosinophils/100 WBC (Bld) 2.8 % 0-5 [facility] Glucose [Mass/Vol] 89 mg/dL 74-106 [facility] Neutrophils (Bld) [#/Vol] 3.1 10*3/uL 2.0-7.7 [facility] Neutrophils/100 WBC (Bld) 56.1 % 47-70 [facility] Potassium [Moles/Vol] 4.0 mmol/L 3.5-5.1 [facility] Sodium [Moles/Vol] 141 mmol/L 136-145 [facility] WBC (Bld) [#/Vol] 5.4 10*3/uL 4.4-11.0 [facility] Blood erythrocytes count (nu mber/volume)Ordered By: Yesika Faust on 08-18-2023 RBC (Bld) [#/Vol] 4.55 10*6/uL 4.2-5.4 [facility] Blood hemoglobin measurement (mass/volume)Ordered By: Yesika Faust on 08-18-2023 Hemoglobin (Bld) [Mass/Vol] 12.9 g/dL 12.0-15.0 [facility] Blood lymphocytes/100 leukoc ytesOrdered By: Yesika Faust on 08-18-2023 Lymphocytes/100 WBC (Bld) 30.8 % 19-41 [facility] Blood monocytes/100 leukocyt esOrdered By: Yesika Faust on 08-18-2023 Monocytes/100 WBC (Bld) 9.4 % 0-10 [facility] Blood platelet mean volumeOr dered By: Yesika Faust on 08-18-2023 Platelet mean volume (Bld) [Entitic vol] 10.4 fL 6.2-12.0 [facility] Determination of erythrocyte mean corpuscular volume (MCV)Ordered By: Yesika Faust on 08-18-2023 MCV (RBC) [Entitic vol] 89.5 fL 81-99 [facility] Hematocrit Auto (Bld) [Volum e fraction]Ordered By: Yesika Faust on 08-18-2023 Hematocrit (Bld) [Volume fraction] 40.7 % 37-47 [facility] Laboratory - Chemistry and C hemistry - challengeOrdered By: enriquetaduboismacarena Faust on 08-18-2023 CO2 [Moles/Vol] 29.0 mmol/L 21.0-32.0 [facility] Urea nitrogen/Creatinine [Mass ratio] 16.6 mg/mg 10-20 [facility] Laboratory - Hematology and Cell countsOrdered By: Yeskia Faust on 08-18-2023 Erythrocyte distribution width (RBC) [Entitic vol] 45.5 fL 35.1-43.9 [facility] Erythrocyte distribution width (RBC) [Ratio] 13.9 % 11.6-14.6 [facility] Immature granulocytes/100 WBC (Bld) 0.200 % 0.0-0.9 [facility] Comment on above: IG% - Immature Granu locytes (promyelocytes, myelocytes and metamyelocytes) > 1% indicates that a LEFT SHIFT is Present. MCH (RBC) [Entitic mass] 28.4 pg 27.0-32.0 [facility] Nucleated RBC/100 WBC (Bld) [Ratio] 0 % 0-5 [facility] MCHC Auto (RBC) [Mass/Vol]Or dered By: Yesika Faust on 08-18-2023 MCHC (RBC) [Mass/Vol] 31.7 g/dL 32-36 [facility] No Panel InformationOrdered By: Yesika Faust on 08-18-2023 Estimated GFR (MDRD) Amer 109 mL/min >60 [facility] Comment on above: GFR Calc Estimated GFR (MDRD) Non-Af Amer 90 mL/min >60 [facility] Comment on above: Non- GFR Calc Platelets bldOrdered By: Randall Faust on 08-18-2023 Platelets (Bld) [#/Vol] 221 10*3/uL 150-450 [facility] Serum or plasma calcium madi urement (mass/volume)Ordered By: Yesika Faust on 08-18-2023 Calcium [Mass/Vol] 8.8 mg/dL 8.5-10.1 [facility] Serum or plasma creatinine m easurement (mass/volume)Ordered By: Yesika Faust on 08-18-2023 Creatinine [Mass/Vol] 0.66 mg/dL 0.55-1.02 [facility] Comment on above: The validity of the calculated GFR & GFRAA in patients over 70 years has not been determined. Clinical correlation is essential. Serum or plasma urea nitroge n measurement (mass/volume)Ordered By: Yesika Faust on 08-18-2023 Urea nitrogen [Mass/Vol] 11 mg/dL 7-18 [facility] Thin prep Papanicolaou smear with manual screeningOrdered By: Yesika Faust on 08-18-2023 Thin prep Papanicolaou smear with manual screening 3 5-15 [facility] Absolute lymphocyte countOrd ered By: Yesika Faust on 05-19-2023 Lymphocytes Auto (Unsp spec) [#/Vol] 1.86 10*3/uL 0.83-4.51 [facility] Basophil percentageOrdered B y: Yesika Faust on 05-19-2023 Basophils/100 WBC (Bld) 0.8 % 0-1 [facility] Chloride [Moles/Vol] 107 mmol/L 98-107 [facility] Eosinophils/100 WBC (Bld) 1.5 % 0-5 [facility] Glucose [Mass/Vol] 125 mg/dL 74-106 [facility] Comment on above: Fasting Glucose resu lt from 100 to 125 mg/dL suggests IMPAIRED HOMEOSTASIS per A.D.A. criteria. Neutrophils (Bld) [#/Vol] 3.4 10*3/uL 2.0-7.7 [facility] Neutrophils/100 WBC (Bld) 55.5 % 47-70 [facility] Potassium [Moles/Vol] 3.6 mmol/L 3.5-5.1 [facility] Sodium [Moles/Vol] 139 mmol/L 136-145 [facility] WBC (Bld) [#/Vol] 6.2 10*3/uL 4.4-11.0 [facility] Blood erythrocytes count (nu mber/volume)Ordered By: Yesika Faust on 05-19-2023 RBC (Bld) [#/Vol] 4.24 10*6/uL 4.2-5.4 [facility] Blood hemoglobin measurement (mass/volume)Ordered By: Yesika Faust on 05-19-2023 Hemoglobin (Bld) [Mass/Vol] 11.7 g/dL 12.0-15.0 [facility] Blood lymphocytes/100 leukoc ytesOrdered By: Yesika Faust on 05-19-2023 Lymphocytes/100 WBC (Bld) 30.1 % 19-41 [facility] Blood monocytes/100 leukocyt esOrdered By: ky Faust on 05-19-2023 Monocytes/100 WBC (Bld) 11.8 % 0-10 [facility] Blood platelet mean volumeOr dered By: Yesika Faust on 05-19-2023 Platelet mean volume (Bld) [Entitic vol] 10.5 fL 6.2-12.0 [facility] Determination of erythrocyte mean corpuscular volume (MCV)Ordered By: Yesika Faust on 05-19-2023 MCV (RBC) [Entitic vol] 90.3 fL 81-99 [facility] Hematocrit Auto (Bld) [Volum e fraction]Ordered By: Yesika Faust on 05-19-2023 Hematocrit (Bld) [Volume fraction] 38.3 % 37-47 [facility] Laboratory - Chemistry and C hemistry - challengeOrdered By: Yesika Faust on 05-19-2023 CO2 [Moles/Vol] 29.0 mmol/L 21.0-32.0 [facility] Urea nitrogen/Creatinine [Mass ratio] 21.6 mg/mg 10-20 [facility] Laboratory - Hematology and Cell countsOrdered By: Yesika Faust on 05-19-2023 Erythrocyte distribution width (RBC) [Entitic vol] 50.2 fL 35.1-43.9 [facility] Erythrocyte distribution width (RBC) [Ratio] 15.2 % 11.6-14.6 [facility] Immature granulocytes/100 WBC (Bld) 0.300 % 0.0-0.9 [facility] Comment on above: IG% - Immature Granu locytes (promyelocytes, myelocytes and metamyelocytes) > 1% indicates that a LEFT SHIFT is Present. MCH (RBC) [Entitic mass] 27.6 pg 27.0-32.0 [facility] Nucleated RBC/100 WBC (Bld) [Ratio] 0 % 0-5 [facility] MCHC Auto (RBC) [Mass/Vol]Or dered By: Yesika Faust on 05-19-2023 MCHC (RBC) [Mass/Vol] 30.5 g/dL 32-36 [facility] No Panel InformationOrdered By: Yesika Faust on 05-19-2023 Estimated GFR (MDRD) Amer 74 mL/min >60 [facility] Comment on above: GFR Calc Estimated GFR (MDRD) Non-Af Amer 61 mL/min >60 [facility] Comment on above: Non- GFR Calc Platelets bldOrdered By: Randall Faust on 05-19-2023 Platelets (Bld) [#/Vol] 234 10*3/uL 150-450 [facility] Serum or plasma calcium madi urement (mass/volume)Ordered By: Yesika Faust on 05-19-2023 Calcium [Mass/Vol] 8.7 mg/dL 8.5-10.1 [facility] Serum or plasma creatinine m easurement (mass/volume)Ordered By: Yesika Faust on 05-19-2023 Creatinine [Mass/Vol] 0.92 mg/dL 0.55-1.02 [facility] Comment on above: The validity of the calculated GFR & GFRAA in patients over 70 years has not been determined. Clinical correlation is essential. Serum or plasma urea nitroge n measurement (mass/volume)Ordered By: Yesika Faust on 05-19-2023 Urea nitrogen [Mass/Vol] 20 mg/dL 7-18 [facility] Thin prep Papanicolaou smear with manual screeningOrdered By: enriquetaduboismacarena Faust on 05-19-2023 Thin prep Papanicolaou smear with manual screening 3 5-15 [facility] Absolute lymphocyte countOrd ered By: enriquetaduboismacarena Faust on 02-17-2023 Lymphocytes Auto (Unsp spec) [#/Vol] 1.67 10*3/uL 0.83-4.51 [facility] Basophil percentageOrdered B y: Yesika Faust on 02-17-2023 Basophils/100 WBC (Bld) 0.8 % 0-1 [facility] Chloride [Moles/Vol] 109 mmol/L 98-107 [facility] Eosinophils/100 WBC (Bld) 2.8 % 0-5 [facility] Glucose [Mass/Vol] 94 mg/dL 74-106 [facility] Neutrophils (Bld) [#/Vol] 3.9 10*3/uL 2.0-7.7 [facility] Neutrophils/100 WBC (Bld) 60.0 % 47-70 [facility] Potassium [Moles/Vol] 3.7 mmol/L 3.5-5.1 [facility] Sodium [Moles/Vol] 141 mmol/L 136-145 [facility] WBC (Bld) [#/Vol] 6.5 10*3/uL 4.4-11.0 [facility] Blood erythrocytes count (nu mber/volume)Ordered By: Yesika Faust on 02-17-2023 RBC (Bld) [#/Vol] 4.33 10*6/uL 4.2-5.4 [facility] Blood hemoglobin measurement (mass/volume)Ordered By: Yesika Faust on 02-17-2023 Hemoglobin (Bld) [Mass/Vol] 11.4 g/dL 12.0-15.0 [facility] Blood lymphocytes/100 leukoc ytesOrdered By: Yesika Faust on 02-17-2023 Lymphocytes/100 WBC (Bld) 25.9 % 19-41 [facility] Blood monocytes/100 leukocyt esOrdered By: Yesika Faust on 02-17-2023 Monocytes/100 WBC (Bld) 10.2 % 0-10 [facility] Blood platelet mean volumeOr dered By: Yesika Faust on 02-17-2023 Platelet mean volume (Bld) [Entitic vol] 10.6 fL 6.2-12.0 [facility] Determination of erythrocyte mean corpuscular volume (MCV)Ordered By: Yesika Faust on 02-17-2023 MCV (RBC) [Entitic vol] 86.4 fL 81-99 [facility] Hematocrit Auto (Bld) [Volum e fraction]Ordered By: Yesika Faust on 02-17-2023 Hematocrit (Bld) [Volume fraction] 37.4 % 37-47 [facility] Laboratory - Chemistry and C hemistry - challengeOrdered By: Yesika Faust on 02-17-2023 CO2 [Moles/Vol] 28.0 mmol/L 21.0-32.0 [facility] Urea nitrogen/Creatinine [Mass ratio] 16.1 mg/mg 10-20 [facility] Laboratory - Hematology and Cell countsOrdered By: Yesika Faust on 02-17-2023 Erythrocyte distribution width (RBC) [Entitic vol] 56.0 fL 35.1-43.9 [facility] Erythrocyte distribution width (RBC) [Ratio] 17.5 % 11.6-14.6 [facility] Immature granulocytes/100 WBC (Bld) 0.300 % 0.0-0.9 [facility] Comment on above: IG% - Immature Granu locytes (promyelocytes, myelocytes and metamyelocytes) > 1% indicates that a LEFT SHIFT is Present. MCH (RBC) [Entitic mass] 26.3 pg 27.0-32.0 [facility] Nucleated RBC/100 WBC (Bld) [Ratio] 0 % 0-5 [facility] MCHC Auto (RBC) [Mass/Vol]Or dered By: Yesika Faust on 02-17-2023 MCHC (RBC) [Mass/Vol] 30.5 g/dL 32-36 [facility] No Panel InformationOrdered By: Yesika Faust on 02-17-2023 Estimated GFR (MDRD) Amer 106 mL/min >60 [facility] Comment on above: GFR Calc Estimated GFR (MDRD) Non-Af Amer 87 mL/min >60 [facility] Comment on above: Non- GFR Calc Platelets bldOrdered By: Randall Faust on 02-17-2023 Platelets (Bld) [#/Vol] 228 10*3/uL 150-450 [facility] Serum or plasma calcium madi urement (mass/volume)Ordered By: Yesika Faust on 02-17-2023 Calcium [Mass/Vol] 8.8 mg/dL 8.5-10.1 [facility] Serum or plasma creatinine m easurement (mass/volume)Ordered By: Yesika Faust on 02-17-2023 Creatinine [Mass/Vol] 0.68 mg/dL 0.55-1.02 [facility] Comment on above: The validity of the calculated GFR & GFRAA in patients over 70 years has not been determined. Clinical correlation is essential. Serum or plasma urea nitroge n measurement (mass/volume)Ordered By: Yesika Faust on 02-17-2023 Urea nitrogen [Mass/Vol] 11 mg/dL 7-18 [facility] Thin prep Papanicolaou smear with manual screeningOrdered By: Yesiak Faust on 02-17-2023 Thin prep Papanicolaou smear with manual screening 4 5-15 [facility] Basophil percentageOrdered B y: Cl Tsang on 01-12-2023 Cholesterol [Mass/Vol] 112 mg/dL <200 [facility] Comment on above: <200 mg/dL Desirable 200-240 mg/dL Borderline >240 mg/dL High Risk Triglyceride [Mass/Vol] 110 mg/dL <199 [facility] Comment on above: The drugs N-Acetylcy steine and Metamizole may falsely depress this assay.Serum Triglycerides Reference Interval Normal <150 mg/dL Borderline high 150 - 199 mg/dL High 200 - 499 mg/dL Very High > or = 500 mg/dL Serum or plasma cholesterol in HDL measurement (mass/volume)Ordered By: Cl Tsang on 01-12-2023 Cholesterol in HDL [Mass/Vol] 50 mg/dL >40 [facility] Comment on above: The drugs N-Acetylcy steine and Metamizole may falsely depress this assay. Reference Range HDL <40 mg/dL Low HDL Cholesterol HDL >or= 60 mg/dL High HDL Cholesterol Serum or plasma cholesterol in VLDL measurement (mass/volume)Ordered By: Cl Tsang on 01-12-2023 Cholesterol in VLDL [Mass/Vol] 22 mg/dL 5-40 [facility] Serum or plasma low density lipoprotein (LDL) cholesterol measurement (mass/volume)Ordered By: Cl Tsang on 01-12-2023 Cholesterol in LDL [Mass/Vol] 40 mg/dL 0-130 [facility] Basophil percentageOrdered B y: Yesika Faust on 11-18-2022 Chloride [Moles/Vol] 108 mmol/L 98-107 [facility] Glucose [Mass/Vol] 114 mg/dL 74-106 [facility] Comment on above: Fasting Glucose resu lt from 100 to 125 mg/dL suggests IMPAIRED HOMEOSTASIS per A.D.A. criteria. Potassium [Moles/Vol] 4.1 mmol/L 3.5-5.1 [facility] Sodium [Moles/Vol] 142 mmol/L 136-145 [facility] WBC (Bld) [#/Vol] 5.6 10*3/uL 4.4-11.0 [facility] Blood erythrocytes count (nu mber/volume)Ordered By: Yesika Faust on 11-18-2022 RBC (Bld) [#/Vol] 3.89 10*6/uL 4.2-5.4 [facility] Blood hemoglobin measurement (mass/volume)Ordered By: Yesika Faust on 11-18-2022 Hemoglobin (Bld) [Mass/Vol] 10.5 g/dL 12.0-15.0 [facility] Blood platelet mean volumeOr dered By: Yesika Faust on 11-18-2022 Platelet mean volume (Bld) [Entitic vol] 10.7 fL 6.2-12.0 [facility] Determination of erythrocyte mean corpuscular volume (MCV)Ordered By: Yesika Faust on 11-18-2022 MCV (RBC) [Entitic vol] 88.4 fL 81-99 [facility] Hematocrit Auto (Bld) [Volum e fraction]Ordered By: Yesika Faust on 11-18-2022 Hematocrit (Bld) [Volume fraction] 34.4 % 37-47 [facility] Laboratory - Chemistry and C hemistry - challengeOrdered By: Yesika Faust on 11-18-2022 CO2 [Moles/Vol] 27.0 mmol/L 21.0-32.0 [facility] Urea nitrogen/Creatinine [Mass ratio] 18.9 mg/mg 10-20 [facility] Laboratory - Hematology and Cell countsOrdered By: Yesika Faust on 11-18-2022 Erythrocyte distribution width (RBC) [Entitic vol] 43.8 fL 35.1-43.9 [facility] Erythrocyte distribution width (RBC) [Ratio] 13.4 % 11.6-14.6 [facility] MCH (RBC) [Entitic mass] 27.0 pg 27.0-32.0 [facility] MCHC Auto (RBC) [Mass/Vol]Or dered By: Yesika Faust on 11-18-2022 MCHC (RBC) [Mass/Vol] 30.5 g/dL 32-36 [facility] No Panel InformationOrdered By: Yesika Faust on 11-18-2022 Estimated GFR (MDRD) Amer 115 mL/min >60 [facility] Comment on above: GFR Calc Estimated GFR (MDRD) Non-Af Amer 95 mL/min >60 [facility] Comment on above: Non- GFR Calc Platelets bldOrdered By: Randall Faust on 11-18-2022 Platelets (Bld) [#/Vol] 247 10*3/uL 150-450 [facility] Serum or plasma calcium madi urement (mass/volume)Ordered By: Yesika Faust on 11-18-2022 Calcium [Mass/Vol] 9.1 mg/dL 8.5-10.1 [facility] Serum or plasma creatinine m easurement (mass/volume)Ordered By: Yesika Faust on 11-18-2022 Creatinine [Mass/Vol] 0.64 mg/dL 0.55-1.02 [facility] Comment on above: The validity of the calculated GFR & GFRAA in patients over 70 years has not been determined. Clinical correlation is essential. Serum or plasma urea nitroge n measurement (mass/volume)Ordered By: Yesika Faust on 11-18-2022 Urea nitrogen [Mass/Vol] 12 mg/dL 7-18 [facility] Thin prep Papanicolaou smear with manual screeningOrdered By: [facility] 11-18-2022 Thin prep Papanicolaou smear with manual screening 7 5-15 [facility] Absolute lymphocyte countOrd ered By: Yesika Faust on 08-19-2022 Lymphocytes Auto (Unsp spec) [#/Vol] 1.60 10*3/uL 0.83-4.51 [facility] Basophil percentageOrdered B y: Yesika Faust on 08-19-2022 Basophils/100 WBC (Bld) 0.4 % 0-1 [facility] Chloride [Moles/Vol] 105 mmol/L 98-107 [facility] Eosinophils/100 WBC (Bld) 0.2 % 0-5 [facility] Glucose [Mass/Vol] 96 mg/dL 74-106 [facility] Neutrophils (Bld) [#/Vol] 3.3 10*3/uL 2.0-7.7 [facility] Neutrophils/100 WBC (Bld) 59.4 % 47-70 [facility] Potassium [Moles/Vol] 4.0 mmol/L 3.5-5.1 [facility] Sodium [Moles/Vol] 141 mmol/L 136-145 [facility] WBC (Bld) [#/Vol] 5.6 10*3/uL 4.4-11.0 [facility] Blood erythrocytes count (nu mber/volume)Ordered By: Yesika Faust on 08-19-2022 RBC (Bld) [#/Vol] 4.44 10*6/uL 4.2-5.4 [facility] Blood hemoglobin measurement (mass/volume)Ordered By: Yesika Faust on 08-19-2022 Hemoglobin (Bld) [Mass/Vol] 13.0 g/dL 12.0-15.0 [facility] Blood lymphocytes/100 leukoc ytesOrdered By: Yesika Faust on 08-19-2022 Lymphocytes/100 WBC (Bld) 28.8 % 19-41 [facility] Blood monocytes/100 leukocyt esOrdered By: Yesika Faust on 08-19-2022 Monocytes/100 WBC (Bld) 11.0 % 0-10 [facility] Blood platelet mean volumeOr dered By: Yesika Faust on 08-19-2022 Platelet mean volume (Bld) [Entitic vol] 10.7 fL 6.2-12.0 [facility] Determination of erythrocyte mean corpuscular volume (MCV)Ordered By: Yesika Faust on 08-19-2022 MCV (RBC) [Entitic vol] 93.0 fL 81-99 [facility] Hematocrit Auto (Bld) [Volum e fraction]Ordered By: Yesika Faust on 08-19-2022 Hematocrit (Bld) [Volume fraction] 41.3 % 37-47 [facility] Laboratory - Chemistry and C hemistry - challengeOrdered By: Yesika Faust on 08-19-2022 CO2 [Moles/Vol] 29.0 mmol/L 21.0-32.0 [facility] Urea nitrogen/Creatinine [Mass ratio] 19.4 mg/mg 10-20 [facility] Laboratory - Hematology and Cell countsOrdered By: Yesika Faust on 08-19-2022 Erythrocyte distribution width (RBC) [Entitic vol] 44.3 fL 35.1-43.9 [facility] Erythrocyte distribution width (RBC) [Ratio] 12.9 % 11.6-14.6 [facility] Immature granulocytes/100 WBC (Bld) 0.200 % 0.0-0.9 [facility] Comment on above: IG% - Immature Granu locytes (promyelocytes, myelocytes and metamyelocytes) > 1% indicates that a LEFT SHIFT is Present. MCH (RBC) [Entitic mass] 29.3 pg 27.0-32.0 [facility] Nucleated RBC/100 WBC (Bld) [Ratio] 0 % 0-5 [facility] MCHC Auto (RBC) [Mass/Vol]Or dered By: Yesika Faust on 08-19-2022 MCHC (RBC) [Mass/Vol] 31.5 g/dL 32-36 [facility] No Panel InformationOrdered By: Yesika Faust on 08-19-2022 Estimated GFR (MDRD) Amer 99 mL/min >60 [facility] Comment on above: GFR Calc Estimated GFR (MDRD) Non-Af Amer 82 mL/min >60 [facility] Comment on above: Non- GFR Calc Platelets bldOrdered By: Randall Faust on 08-19-2022 Platelets (Bld) [#/Vol] 216 10*3/uL 150-450 [facility] Serum or plasma calcium madi urement (mass/volume)Ordered By: Yesika Faust on 08-19-2022 Calcium [Mass/Vol] 9.4 mg/dL 8.5-10.1 [facility] Serum or plasma creatinine m easurement (mass/volume)Ordered By: Yesika Faust on 08-19-2022 Creatinine [Mass/Vol] 0.72 mg/dL 0.55-1.02 [facility] Comment on above: The validity of the calculated GFR & GFRAA in patients over 70 years has not been determined. Clinical correlation is essential. Serum or plasma urea nitroge n measurement (mass/volume)Ordered By: Yesika Faust on 08-19-2022 Urea nitrogen [Mass/Vol] 14 mg/dL 7-18 [facility] Thin prep Papanicolaou smear with manual screeningOrdered By: Yesika Faust on 08-19-2022 Thin prep Papanicolaou smear with manual screening 7 5-15 [facility] Absolute lymphocyte counton 05-20-2022 Lymphocytes Auto (Unsp spec) [#/Vol] 1.88 10*3/uL 0.83-4.51 [facility] Work Phone: Basophil percentageon 2021 Basophils/100 WBC (Bld) 0.7 % 0-1 [facility] Work Phone: Chloride [Moles/Vol] 111 mmol/L 98-107 [facility] Work Phone: Eosinophils/100 WBC (Bld) 4.0 % 0-5 [facility] Work Phone: Glucose [Mass/Vol] 94 mg/dL 74-106 [facility] Work Phone: Neutrophils (Bld) [#/Vol] 3.3 10*3/uL 2.0-7.7 [facility] Work Phone: Neutrophils/100 WBC (Bld) 55.6 % 47-70 [facility] Work Phone: Potassium [Moles/Vol] 4.1 mmol/L 3.5-5.1 [facility] Work Phone: Sodium [Moles/Vol] 139 mmol/L 136-145 [facility] Work Phone: WBC (Bld) [#/Vol] 6.0 10*3/uL 4.4-11.0 [facility] Work Phone: Blood erythrocytes count (nu mber/volume)on 05-20-2022 RBC (Bld) [#/Vol] 4.01 10*6/uL 4.2-5.4 [facility] Work Phone: Blood hemoglobin measurement (mass/volume)on 05-20-2022 Hemoglobin (Bld) [Mass/Vol] 13.0 g/dL 12.0-15.0 [facility] Work Phone: Blood lymphocytes/100 leukoc yteson 05-20-2022 Lymphocytes/100 WBC (Bld) 31.5 % 19-41 [facility] Work Phone: Blood monocytes/100 leukocyt eson 05-20-2022 Monocytes/100 WBC (Bld) 8.0 % 0-10 [facility] Work Phone: Blood platelet mean volumeon 05-20-2022 Platelet mean volume (Bld) [Entitic vol] 10.3 fL 6.2-12.0 [facility] Work Phone: Determination of erythrocyte mean corpuscular volume (MCV)on 05-20-2022 MCV (RBC) [Entitic vol] 99.3 fL 81-99 [facility] Work Phone: Hematocrit Auto (Bld) [Volum e fraction]on 05-20-2022 Hematocrit (Bld) [Volume fraction] 39.8 % 37-47 [facility] Work Phone: Laboratory - Chemistry and C hemistry - challengeon 05-20-2022 CO2 [Moles/Vol] 17.0 mmol/L 21.0-32.0 [facility] Work Phone: Urea nitrogen/Creatinine [Mass ratio] 13.2 mg/mg 10-20 [facility] Work Phone: Laboratory - Hematology and Cell countson 05-20-2022 Erythrocyte distribution width (RBC) [Entitic vol] 52.0 fL 35.1-43.9 [facility] Work Phone: Erythrocyte distribution width (RBC) [Ratio] 14.4 % 11.6-14.6 [facility] Work Phone: Immature granulocytes/100 WBC (Bld) 0.200 % 0.0-0.9 [facility] Work Phone: Comment on above: IG% - Immature Granu locytes (promyelocytes, myelocytes and metamyelocytes) > 1% indicates that a LEFT SHIFT is Present. MCH (RBC) [Entitic mass] 32.4 pg 27.0-32.0 [facility] Work Phone: Nucleated RBC/100 WBC (Bld) [Ratio] 0 % 0-5 [facility] Work Phone: MCHC Auto (RBC) [Mass/Vol]on 05-20-2022 MCHC (RBC) [Mass/Vol] 32.7 g/dL 32-36 [facility] Work Phone: No Panel Informationon 05-20 Estimated GFR (MDRD) Amer 94 mL/min >60 [facility] Work Phone: Comment on above: GFR Calc Estimated GFR (MDRD) Non-Af Amer 77 mL/min >60 [facility] Work Phone: Comment on above: Non- GFR Calc Platelets bldon 05-20-2022 Platelets (Bld) [#/Vol] 188 10*3/uL 150-450 [facility] Work Phone: Serum or plasma calcium madi urement (mass/volume)on 05-20-2022 Calcium [Mass/Vol] 9.5 mg/dL 8.5-10.1 [facility] Work Phone: Serum or plasma creatinine m easurement (mass/volume)on 05-20-2022 Creatinine [Mass/Vol] 0.76 mg/dL 0.55-1.02 [facility] Work Phone: Comment on above: The validity of the calculated GFR & GFRAA in patients over 70 years has not been determined. Clinical correlation is essential. Serum or plasma urea nitroge n measurement (mass/volume)on 05-20-2022 Urea nitrogen [Mass/Vol] 10 mg/dL 7-18 [facility] Work Phone: Thin prep Papanicolaou smear with manual screeningon 05-20-2022 Thin prep Papanicolaou smear with manual screening 11 5-15 [facility] Work Phone: Bilirubin Test strip Ql (U)o n 03-07-2022 Bilirubin Ql (U) Negative Negative [facility] Work Phone: Ketones Test strip Ql (U)on 03-07-2022 Ketones Ql (U) Negative Negative [facility] Work Phone: Nitrite Test strip Ql (U)on 03-07-2022 Nitrite Ql (U) Positive Negative [facility] Work Phone: Protein Test strip Ql (U)on 03-07-2022 Protein Ql (U) Negative Negative [facility] Work Phone: Urine blood detectionon 02-13 RBC Ql (U) 25 /ul Negative [facility] Work Phone: Urine clarityon 03-07-2022 Clarity (U) Clear Clear [facility] Work Phone: Urine color determinationon 03-07-2022 Color (U) Yellow Yellow [facility] Work Phone: Urine glucose detectionon Glucose Ql (U) Normal mg/dl Normal [facility] Work Phone: Urine leukocyte esterase det ection by dipstickon 03-07-2022 Leukocyte esterase Test strip Ql (U) 500 /ul Negative [facility] Work Phone: Urine pHon 03-07-2022 pH (U) 6.5 [pH] 5.0 - 8.0 [facility] Work Phone: Urine specific gravity measu rementon 03-07-2022 Specific gravity (U) [Rel density] 1.010 1.002-1.03 0 [facility] Work Phone: Urobilinogen Auto test strip Ql (U)on 03-07-2022 Urobilinogen Ql (U) Normal mg/dl Normal [facility] Work Phone: Basophil percentageon 2021 Cholesterol [Mass/Vol] 117 mg/dL <200 [facility] Work Phone: Comment on above: <200 mg/dL Desirable 200-240 mg/dL Borderline >240 mg/dL High Risk Triglyceride [Mass/Vol] 118 mg/dL [facility] Work Phone: Comment on above: The drugs N-Acetylcy steine and Metamizole may falsely depress this assay.Serum Triglycerides Reference Interval Normal <150 mg/dL Borderline high 150 - 199 mg/dL High 200 - 499 mg/dL Very High > or = 500 mg/dL Serum or plasma cholesterol in HDL measurement (mass/volume)on 01-13-2022 Cholesterol in HDL [Mass/Vol] 44 mg/dL [facility] Work Phone: Comment on above: The drugs N-Acetylcy steine and Metamizole may falsely depress this assay. Reference Range HDL <40 mg/dL Low HDL Cholesterol HDL >or= 60 mg/dL High HDL Cholesterol Serum or plasma cholesterol in VLDL measurement (mass/volume)on 01-13-2022 Cholesterol in VLDL [Mass/Vol] 24 mg/dL 5-40 [facility] Work Phone: Serum or plasma low density lipoprotein (LDL) cholesterol measurement (mass/volume)on 01-13-2022 Cholesterol in LDL [Mass/Vol] 49 mg/dL 0-130 [facility] Work Phone: Absolute lymphocyte counton 11-12-2021 Lymphocytes Auto (Unsp spec) [#/Vol] 1.48 10*3/uL 0.83-4.51 [facility] Work Phone: Basophil percentageon 2021 Basophils/100 WBC (Bld) 0.5 % 0-1 [facility] Work Phone: Chloride [Moles/Vol] 108 mmol/L 98-107 [facility] Work Phone: Eosinophils/100 WBC (Bld) 1.4 % 0-5 [facility] Work Phone: Glucose [Mass/Vol] 105 mg/dL 74-106 [facility] Work Phone: Comment on above: Fasting Glucose resu lt from 100 to 125 mg/dL suggests IMPAIRED HOMEOSTASIS per A.D.A. criteria. Neutrophils (Bld) [#/Vol] 3.5 10*3/uL 2.0-7.7 [facility] Work Phone: Neutrophils/100 WBC (Bld) 61.7 % 47-70 [facility] Work Phone: Potassium [Moles/Vol] 3.8 mmol/L 3.5-5.1 [facility] Work Phone: Sodium [Moles/Vol] 139 mmol/L 136-145 [facility] Work Phone: WBC (Bld) [#/Vol] 5.7 10*3/uL 4.4-11.0 [facility] Work Phone: Blood erythrocytes count (nu mber/volume)on 11-12-2021 RBC (Bld) [#/Vol] 4.44 10*6/uL 4.2-5.4 [facility] Work Phone: Blood hemoglobin measurement (mass/volume)on 11-12-2021 Hemoglobin (Bld) [Mass/Vol] 13.7 g/dL 12.0-15.0 [facility] Work Phone: Blood lymphocytes/100 leukoc yteson 11-12-2021 Lymphocytes/100 WBC (Bld) 26.0 % 19-41 [facility] Work Phone: Blood monocytes/100 leukocyt eson 11-12-2021 Monocytes/100 WBC (Bld) 10.0 % 0-10 [facility] Work Phone: Blood platelet mean volumeon 11-12-2021 Platelet mean volume (Bld) [Entitic vol] 10.2 fL 6.2-12.0 [facility] Work Phone: Determination of erythrocyte mean corpuscular volume (MCV)on 11-12-2021 MCV (RBC) [Entitic vol] 89.4 fL 81-99 [facility] Work Phone: Hematocrit Auto (Bld) [Volum e fraction]on 11-12-2021 Hematocrit (Bld) [Volume fraction] 39.7 % 37-47 [facility] Work Phone: Laboratory - Chemistry and C hemistry - challengeon 11-12-2021 CO2 [Moles/Vol] 29.0 mmol/L 21.0-32.0 [facility] Work Phone: Urea nitrogen/Creatinine [Mass ratio] 16.9 mg/mg 10-20 [facility] Work Phone: Laboratory - Hematology and Cell countson 11-12-2021 Erythrocyte distribution width (RBC) [Entitic vol] 41.8 fL 35.1-43.9 [facility] Work Phone: Erythrocyte distribution width (RBC) [Ratio] 12.8 % 11.6-14.6 [facility] Work Phone: Immature granulocytes/100 WBC (Bld) 0.400 % 0.0-0.9 [facility] Work Phone: Comment on above: IG% - Immature Granu locytes (promyelocytes, myelocytes and metamyelocytes) > 1% indicates that a LEFT SHIFT is Present. MCH (RBC) [Entitic mass] 30.9 pg 27.0-32.0 [facility] Work Phone: Nucleated RBC/100 WBC (Bld) [Ratio] 0 % 0-5 [facility] Work Phone: MCHC Auto (RBC) [Mass/Vol]on 11-12-2021 MCHC (RBC) [Mass/Vol] 34.5 g/dL 32-36 [facility] Work Phone: No Panel Informationon 11-12 Estimated GFR (MDRD) Amer 101 mL/min >60 [facility] Work Phone: Comment on above: GFR Calc Estimated GFR (MDRD) Non-Af Amer 84 mL/min >60 [facility] Work Phone: Comment on above: Non- GFR Calc Platelets bldon 11-12-2021 Platelets (Bld) [#/Vol] 194 10*3/uL 150-450 [facility] Work Phone: Serum or plasma calcium madi urement (mass/volume)on 11-12-2021 Calcium [Mass/Vol] 9.5 mg/dL 8.5-10.1 [facility] Work Phone: Serum or plasma creatinine m easurement (mass/volume)on 11-12-2021 Creatinine [Mass/Vol] 0.71 mg/dL 0.55-1.02 [facility] Work Phone: Comment on above: The validity of the calculated GFR & GFRAA in patients over 70 years has not been determined. Clinical correlation is essential. Serum or plasma urea nitroge n measurement (mass/volume)on 11-12-2021 Urea nitrogen [Mass/Vol] 12 mg/dL 7-18 [facility] Work Phone: Thin prep Papanicolaou smear with manual screeningon 11-12-2021 Thin prep Papanicolaou smear with manual screening 2 5-15 [facility] Work Phone: XR SPINE CERVICAL 1 VIEWon [...] AM Sign Date: 07/04/2019 10:22:47 AM Ordering Provider:cD [facility] ([place]) .GFRon 06-09-2019 GFR >60 Normal [facility] ([place]) Comment on above: Result Comment: GFR Population [...] #### C BC, DIFF, MORPH, BMP, GFR ####[place] [address] GFR Non- >60 Normal [facility] ([place]) Comment on above: Result Comment: GFR Population [...] #### C BC, DIFF, MORPH, BMP, GFR ####[place] [address] .Manual Diffon 06-09-2019 Basophil %, Manual 1.0 % Normal 0.0-2.5 [facility] ([place]) Comment on above: Performed By: #### C BC, DIFF, MORPH, BMP, GFR ####[place] [address] Basophil, Abs Manual 0.08 10 3/mcL Normal 0.00-0.27 [facility] ([place]) Comment on above: Performed By: #### C BC, DIFF, MORPH, BMP, GFR ####[place] [address] Cells Counted 100 Normal [facility] ([place]) Comment on above: Performed By: #### C BC, DIFF, MORPH, BMP, GFR ####[place] [address] Eosinophil %, Manual 2.0 % Normal 0.0-6.0 [facility] ([place]) Comment on above: Performed By: #### C BC, DIFF, MORPH, BMP, GFR ####[place] [address] Eosinophil, Abs Manual 0.16 10 3/mcL Normal 0.00-0.65 [facility] ([place]) Comment on above: Performed By: #### C BC, DIFF, MORPH, BMP, GFR ####[address] [address] Lymphocyte %, Manual 9.0 % Low 20.0-40.0 [facility] ([place]) Comment on above: Performed By: #### C BC, DIFF, MORPH, BMP, GFR ####[address] [address] Lymphocyte, Abs Manual 0.72 10 3/mcL Low 0.90-4.32 [facility] ([place]) Comment on above: Performed By: #### C BC, DIFF, MORPH, BMP, GFR ####[place] [address] Monocyte %, Manual 6.0 % Normal 2.0-13.0 [facility] ([place]) Comment on above: Performed By: #### C BC, DIFF, MORPH, BMP, GFR ####[place] [address] Monocyte, Abs Manual 0.48 10 3/mcL Normal 0.09-1.40 [facility] ([place]) Comment on above: Performed By: #### C BC, DIFF, MORPH, BMP, GFR ####[place] [address] Myelocyte 1.0 % Normal [facility] ([place]) Comment on above: Performed By: #### C BC, DIFF, MORPH, BMP, GFR ####[place] [address] Neutrophil %, Manual 81.0 % High 50.0-75.0 [facility] ([place]) Comment on above: Performed By: #### C BC, DIFF, MORPH, BMP, GFR ####[address] [address] Neutrophil, Abs Manual 6.48 10 3/mcL Normal 2.25-8.10 [facility] ([place]) Comment on above: Performed By: #### C BC, DIFF, MORPH, BMP, GFR ####[place] [address] .Morphon 06-09-2019 Platelets (Bld) [#/Vol] Normal Normal [facility] ([place]) Comment on above: Performed By: #### C BC, DIFF, MORPH, BMP, GFR ####[address] [address] Polychrom Slight Normal [facility] ([place]) Comment on above: Performed By: #### C BC, DIFF, MORPH, BMP, GFR ####[place] [address] BMPon 06-09-2019 Creatinine [Mass/Vol] 0.75 mg/dL Normal 0.50-1.20 [facility] ([place]) Comment on above: Performed By: #### C BC, DIFF, MORPH, BMP, GFR ####[place] [address] Urea nitrogen/Creatinine [Mass ratio] 18.7 ratio Normal 10.0-22.0 [facility] ([place]) Comment on above: Performed By: #### C BC, DIFF, MORPH, BMP, GFR ####[place] [address] Calcium [Mass/Vol] 8.2 mg/dL Low 8.4-10.1 [facility] ([place]) Comment on above: Performed By: #### C BC, DIFF, MORPH, BMP, GFR ####[place] [address] Chloride [Moles/Vol] 106 mmol/L Normal 98-110 [facility] ([place]) Comment on above: Performed By: #### C BC, DIFF, MORPH, BMP, GFR ####[place] [address] CO2 [Moles/Vol] 18 mmol/L Low 22-32 [facility] ([place]) Comment on above: Performed By: #### C BC, DIFF, MORPH, BMP, GFR ####[place] [address] Electrolyte Balance 16.0 mEq/L High 4.0-15.0 [facility] ([place]) Comment on above: Performed By: #### C BC, DIFF, MORPH, BMP, GFR ####[address] [address] Glucose [Mass/Vol] 109 mg/dL Normal 82-115 [facility] ([place]) Comment on above: Performed By: #### C BC, DIFF, MORPH, BMP, GFR ####[address] [address] Potassium [Moles/Vol] 3.8 mmol/L Normal 3.5-5.0 [facility] ([place]) Comment on above: Performed By: #### C BC, DIFF, MORPH, BMP, GFR ####[address] [address] Sodium [Moles/Vol] 140 mmol/L Normal 136-145 [facility] ([place]) Comment on above: Performed By: #### C BC, DIFF, MORPH, BMP, GFR ####[address] [address] Urea nitrogen [Mass/Vol] 14.0 mg/dL Normal 8.0-22.0 [facility] ([place]) Comment on above: Performed By: #### C BC, DIFF, MORPH, BMP, GFR ####[address] [address] CBCon 06-09-2019 Platelet mean volume (Bld) [Entitic vol] 8.6 fL Normal 6.6-10.5 [facility] ([place]) Comment on above: Performed By: #### C BC, DIFF, MORPH, BMP, GFR ####[address] [address] Platelets (Bld) [#/Vol] 229 10 3/mcL Normal 150-450 [facility] ([place]) Comment on above: Performed By: #### C BC, DIFF, MORPH, BMP, GFR ####[address] [address] WBC (Bld) [#/Vol] 8.00 10 3/mcL Normal 4.50-10.80 [facility] ([place]) Comment on above: Performed By: #### C BC, DIFF, MORPH, BMP, GFR ####[address] [address] Erythrocyte distribution width (RBC) [Ratio] 13.8 % Normal 11.5-15.5 [facility] ([place]) Comment on above: Performed By: #### C BC, DIFF, MORPH, BMP, GFR ####[place] [address] Hematocrit (Bld) [Volume fraction] 26.6 % Low 34.0-46.0 [facility] ([place]) Comment on above: Performed By: #### C BC, DIFF, MORPH, BMP, GFR ####[place] [address] Hemoglobin (Bld) [Mass/Vol] 9.1 G/dL Low 12.0-16.0 [facility] ([place]) Comment on above: Performed By: #### C BC, DIFF, MORPH, BMP, GFR ####[place] [address] MCH (RBC) [Entitic mass] 30.1 pg Normal 27.0-33.0 [facility] ([place]) Comment on above: Performed By: #### C BC, DIFF, MORPH, BMP, GFR ####[place] [address] MCHC (RBC) [Mass/Vol] 34.3 G/dL Normal 32.0-36.0 [facility] ([place]) Comment on above: Performed By: #### C BC, DIFF, MORPH, BMP, GFR ####[place] [address] MCV (RBC) [Entitic vol] 87.9 fL Normal 80.0-99.0 [facility] ([place]) Comment on above: Performed By: #### C BC, DIFF, MORPH, BMP, GFR ####[place] [address] RBC (Bld) [#/Vol] 3.03 10 6/mcL Low 4.10-5.30 [facility] ([place] Comment on above: Performed By: #### C BC, DIFF, MORPH, BMP, GFR ####[place] [address] XR CHEST 2 VIEWSon 9 XR CHEST [...] AM Sign Date: 06/09/2019 7:22:18 AM Normal [facility] ([place]) .GFRon 06-08-2019 GFR >60 Normal [facility] ([place]) Comment on above: Result Comment: GFR Population [...] meters Performed By: #### B MP, GFR ####[place] [address] GFR Non- >60 Normal [facility] ([place]) Comment on above: Result Comment: GFR Population [...] meters Performed By: #### B MP, GFR ####[address] [address] BMPon 06-08-2019 Creatinine [Mass/Vol] 0.60 mg/dL Normal 0.50-1.20 [facility] ([place]) Comment on above: Performed By: #### B MP, GFR ####[place] [address] Urea nitrogen/Creatinine [Mass ratio] 21.7 ratio Normal 10.0-22.0 [facility] ([place]) Comment on above: Performed By: #### B MP, GFR ####[place] [address] Calcium [Mass/Vol] 7.9 mg/dL Low 8.4-10.1 [facility] ([place]) Comment on above: Performed By: #### B MP, GFR ####[place] [id number] Chloride [Moles/Vol] 107 mmol/L Normal 98-110 [facility] ([place] Comment on above: Performed By: #### B MP, GFR ####[address] [address] CO2 [Moles/Vol] 28 mmol/L Normal 22-32 [facility] ([place]) Comment on above: Performed By: #### B MP, GFR ####[place] [id number] Electrolyte Balance 8.0 mEq/L Normal 4.0-15.0 [facility] ([place]) Comment on above: Performed By: #### B MP, GFR ####[place] [id number] Glucose [Mass/Vol] 115 mg/dL Normal 82-115 [facility] ([place]) Comment on above: Performed By: #### B MP, GFR ####[address] [address] Potassium [Moles/Vol] 3.7 mmol/L Normal 3.5-5.0 [facility] ([place]) Comment on above: Performed By: #### B MP, GFR ####[place] [id number] [address] [place] [address] Sodium [Moles/Vol] 143 mmol/L Normal 136-145 [facility] ([place]) Comment on above: Performed By: #### B MP, GFR ####[address] [address] Urea nitrogen [Mass/Vol] 13.0 mg/dL Normal 8.0-22.0 [facility] ([place]) Comment on above: Performed By: #### B MP, GFR ####[address] [address] XR CHEST 2 VIEWSon 9 XR CHEST [...] AM Sign Date: 06/08/2019 6:29:24 AM Normal [facility] ([place]) .Auto Diffon 06-07-2019 Ammonia (P) [Mass/Vol] 0.40 10 3/mcL Normal 0.09-1.40 [facility] ([place]) Comment on above: Performed By: #### C BC, ADIFF, ANEU, CMP, GFR ####[address] [address] Basophils (Bld) [#/Vol] 0.00 10 3/mcL Normal 0.00-0.27 [facility] ([place]) Comment on above: Performed By: #### C BC, ADIFF, ANEU, CMP, GFR ####[address] [address] Basophils/100 WBC (Bld) 0.4 % Normal 0.0-2.5 [facility] ([place]) Comment on above: Performed By: #### C BC, ADIFF, ANEU, CMP, GFR ####[address] [address] Eosinophils (Bld) [#/Vol] 0.30 10 3/mcL Normal 0.00-0.65 [facility] ([place]) Comment on above: Performed By: #### C BC, ADIFF, ANEU, CMP, GFR ####[address] [address] Eosinophils/100 WBC (Bld) 6.6 % High 0.0-6.0 [facility] ([place]) Comment on above: Performed By: #### C BC, ADIFF, ANEU, CMP, GFR ####[address] [address] Lymphocytes (Bld) [#/Vol] 1.00 10 3/mcL Normal 0.90-4.32 [facility] ([place]) Comment on above: Performed By: #### C BC, ADIFF, ANEU, CMP, GFR ####[address] [address] Lymphocytes/100 WBC (Bld) 19.0 % Low 20.0-40.0 [facility] ([place]) Comment on above: Performed By: #### C BC, ADIFF, ANEU, CMP, GFR ####[address] [address] Monocytes/100 WBC (Bld) 7.4 % Normal 2.0-13.0 [facility] ([place]) Comment on above: Performed By: #### C BC, ADIFF, ANEU, CMP, GFR ####[address] [address] Neutrophils/100 WBC (Bld) 66.6 % Normal 50.0-75.0 [facility] ([place]) Comment on above: Performed By: #### C BC, ADIFF, ANEU, CMP, GFR ####[address] [address] Ammonia (P) [Mass/Vol] 0.50 10 3/mcL Normal 0.09-1.40 [facility] ([place]) Comment on above: Performed By: #### C BC, ADIFF, ANEU, BMP, GFR ####[address] [address] Basophils (Bld) [#/Vol] 0.00 10 3/mcL Normal 0.00-0.27 [facility] ([place]) Comment on above: Performed By: #### C BC, ADIFF, ANEU, BMP, GFR ####[address] [address] Basophils/100 WBC (Bld) 0.7 % Normal 0.0-2.5 [facility] ([place]) Comment on above: Performed By: #### C BC, ADIFF, ANEU, BMP, GFR ####[address] [address] Eosinophils (Bld) [#/Vol] 0.10 10 3/mcL Normal 0.00-0.65 [facility] ([place]) Comment on above: Performed By: #### C BC, ADIFF, ANEU, BMP, GFR ####[address] [address] Eosinophils/100 WBC (Bld) 1.8 % Normal 0.0-6.0 [facility] ([place]) Comment on above: Performed By: #### C BC, ADIFF, ANEU, BMP, GFR ####[address] [address] Lymphocytes (Bld) [#/Vol] 2.10 10 3/mcL Normal 0.90-4.32 [facility] ([place]) Comment on above: Performed By: #### C BC, ADIFF, ANEU, BMP, GFR ####[address] [address] Lymphocytes/100 WBC (Bld) 32.8 % Normal 20.0-40.0 [facility] ([place]) Comment on above: Performed By: #### C BC, ADIFF, ANEU, BMP, GFR ####[address] [address] Monocytes/100 WBC (Bld) 7.1 % Normal 2.0-13.0 [facility] ([place]) Comment on above: Performed By: #### C BC, ADIFF, ANEU, BMP, GFR ####[address] [address] Neutrophils/100 WBC (Bld) 57.6 % Normal 50.0-75.0 [facility] ([place]) Comment on above: Performed By: #### C BC, ADIFF, ANEU, BMP, GFR ####[address] [address] Ammonia (P) [Mass/Vol] 0.60 10 3/mcL Normal 0.09-1.40 [facility] ([place]) Comment on above: Performed By: #### C BC, ADIFF, ANEU #### [place] [address] #### BMP, GFR #### [address] [address] Basophils (Bld) [#/Vol] 0.00 10 3/mcL Normal 0.00-0.27 [facility] [facility] ([place]) Comment on above: Performed By: #### C BC ADIFF, ANEU #### [place] [address] #### BMP, GFR #### [address] [address] Basophils/100 WBC (Bld) 0.5 % Normal 0.0-2.5 [facility] ([place]) Comment on above: Performed By: #### C BC, ADIFF, ANEU #### [address] [address] #### BMP, GFR #### [address] [address] Eosinophils (Bld) [#/Vol] 0.10 10 3/mcL Normal 0.00-0.65 [facility] ([place]) Comment on above: Performed By: #### C BC, ADIFF, ANEU #### [address] [address] #### BMP, GFR #### [address] [address] Eosinophils/100 WBC (Bld) 2.2 % Normal 0.0-6.0 [facility] ([place]) Comment on above: Performed By: #### C BC, ADIFF, ANEU #### [place] [address] #### BMP, GFR #### [address] [address] Lymphocytes (Bld) [#/Vol] 0.80 10 3/mcL Low 0.90-4.32 [facility] ([place]) Comment on above: Performed By: #### C BC, BRYANIFF, ANEU #### [place] [address] #### BMP, GFR #### [address] [address] Lymphocytes/100 WBC (Bld) 12.3 % Low 20.0-40.0 [facility] ([place]) Comment on above: Performed By: #### C BC, BRYANIFF, ANEU #### [place] [address] #### BMP, GFR #### [address] [address] Monocytes/100 WBC (Bld) 9.5 % Normal 2.0-13.0 [facility] ([place]) Comment on above: Performed By: #### C BC, ADIFF, ANEU #### [place] [address] #### BMP, GFR #### [address] [address] Neutrophils/100 WBC (Bld) 75.5 % High 50.0-75.0 [facility] ([place]) Comment on above: Performed By: #### C BC, ADIFF, ANEU #### [place] [id number] [place], [place] [address] #### BMP, GFR #### [facility] [address] [place] [address] .GFRon 06-07-2019 GFR >60 Normal [facility] ([place]) Comment on above: Result Comment: GFR Population [...] BC, ADIFF, ANEU, CMP, GFR ####[place] [address] [place] [address] GFR Non- >60 Normal [facility] ([place]) Comment on above: Result Comment: GFR Population [...] BC, ADIFF, ANEU, CMP, GFR ####[place] [address] [place] [address] GFR >60 Normal [facility] ([place]) Comment on above: Result Comment: GFR Population [...] #### C BC, ADIFF, ANEU, BMP, GFR ####[address] [address] GFR Non- >60 Normal [facility] ([place]) Comment on above: Result Comment: GFR Population [...] #### C BC, ADIFF, ANEU, BMP, GFR ####[address] [address] GFR Non- >60 Normal [facility] ([place]) Comment on above: Result Comment: GFR Population [...] #### C BC, ADIFF, ANEU, BMP, GFR ####[address] [address] GFR >60 Normal [facility] ([place]) Comment on above: Result Comment: GFR Population [...] #### C BC, ADIFF, ANEU, BMP, GFR ####[place] [address] .NEUABSon 06-07-2019 Neutrophils (Bld) [#/Vol] 3.40 10 3/mcL Normal 2.25-8.10 [facility] ([place]) Comment on above: Performed By: #### C BC, ADIFF, ANEU, CMP, GFR ####[address] [address] Neutrophils (Bld) [#/Vol] 3.80 10 3/mcL Normal 2.25-8.10 [facility] ([place]) Comment on above: Performed By: #### C BC, ADIFF, ANEU, BMP, GFR ####[address] [address] Neutrophils (Bld) [#/Vol] 5.00 10 3/mcL Normal 2.25-8.10 [facility] ([place]) Comment on above: Performed By: #### Lio BC, ADIFF, ANEU #### [place] [address] [place], [place] [address] #### BMP, GFR #### [address] [address] BMPon 06-07-2019 Creatinine [Mass/Vol] 0.66 mg/dL Normal 0.50-1.20 [facility] ([place]) Comment on above: Performed By: #### C BC, ADIFF, ANEU, BMP, GFR ####[place] [address] Urea nitrogen/Creatinine [Mass ratio] 16.7 ratio Normal 10.0-22.0 [facility] ([place]) Comment on above: Performed By: #### C BC, ADIFF, ANEU, BMP, GFR ####[place] [address] Calcium [Mass/Vol] 7.8 mg/dL Low 8.4-10.1 [facility] ([place]) Comment on above: Performed By: #### C BC, ADIFF, ANEU, BMP, GFR ####[place] [address] Chloride [Moles/Vol] 106 mmol/L Normal 98-110 [facility] ([place]) Comment on above: Performed By: #### C BC, ADIFF, ANEU, BMP, GFR ####[place] [id number] CO2 [Moles/Vol] 26 mmol/L Normal 22-32 [facility] ([place]) Comment on above: Performed By: #### C BC, ADIFF, ANEU, BMP, GFR ####[address] [address] Electrolyte Balance 9.0 mEq/L Normal 4.0-15.0 [facility] ([place]) Comment on above: Performed By: #### C BC, ADIFF, ANEU, BMP, GFR ####[address] [address] Glucose [Mass/Vol] 101 mg/dL Normal 82-115 [facility] ([place]) Comment on above: Performed By: #### C BC, ADIFF, ANEU, BMP, GFR ####[address] [address] Potassium [Moles/Vol] 3.6 mmol/L Normal 3.5-5.0 [facility] ([place]) Comment on above: Performed By: #### C BC, ADIFF, ANEU, BMP, GFR ####[address] [address] Sodium [Moles/Vol] 141 mmol/L Normal 136-145 [facility] ([place]) Comment on above: Performed By: #### C BC, ADIFF, ANEU, BMP, GFR ####[address] [address] Urea nitrogen [Mass/Vol] 11.0 mg/dL Normal 8.0-22.0 [facility] ([place]) Comment on above: Performed By: #### C BC, ADIFF, ANEU, BMP, GFR ####[place] [address] Calcium [Mass/Vol] 8.4 mg/dL Normal 8.4-10.1 [facility] ([place]) Comment on above: Performed By: #### C BC, ADIFF, ANEU, BMP, GFR ####[place] [address] Chloride [Moles/Vol] 106 mmol/L Normal 98-110 [facility] ([place]) Comment on above: Performed By: #### C BC, ADIFF, ANEU, BMP, GFR ####[place] [id number] CO2 [Moles/Vol] 25 mmol/L Normal 22-32 [facility] ([place]) Comment on above: Performed By: #### C BC, ADIFF, ANEU, BMP, GFR ####[address] [address] Creatinine [Mass/Vol] 0.73 mg/dL Normal 0.50-1.20 [facility] ([place]) Comment on above: Performed By: #### C BC, ADIFF, ANEU, BMP, GFR ####[place] [address] Electrolyte Balance 9.0 mEq/L Normal 4.0-15.0 [facility] ([place]) Comment on above: Performed By: #### C BC, ADIFF, ANEU, BMP, GFR ####[address] [address] Glucose [Mass/Vol] 230 mg/dL High 82-115 [facility] ([place]) Comment on above: Performed By: #### C BC, ADIFF, ANEU, BMP, GFR ####[address] [address] Potassium [Moles/Vol] 3.8 mmol/L Normal 3.5-5.0 [facility] ([place]) Comment on above: Performed By: #### C BC, ADIFF, ANEU, BMP, GFR ####[place] [address] Sodium [Moles/Vol] 140 mmol/L Normal 136-145 [facility] ([place]) Comment on above: Performed By: #### C BC, ADIFF, ANEU, BMP, GFR ####[place] [address] Urea nitrogen [Mass/Vol] 16.0 mg/dL Normal 8.0-22.0 [facility] ([place]) Comment on above: Performed By: #### C BC, ADIFF, ANEU, BMP, GFR ####[address] [address] Urea nitrogen/Creatinine [Mass ratio] 21.9 ratio Normal 10.0-22.0 [facility] ([place]) Comment on above: Performed By: #### C BC, ADIFF, ANEU, BMP, GFR ####[address] [address] CBCon 06-07-2019 Erythrocyte distribution width (RBC) [Ratio] 12.5 % Normal 11.5-15.5 [facility] ([place]) Comment on above: Performed By: #### C BC, ADIFF, ANEU, CMP, GFR ####[address] [address] Hematocrit (Bld) [Volume fraction] 35.3 % Low 40.0-52.0 [facility] ([place]) Comment on above: Performed By: #### C BC, ADIFF, ANEU, CMP, GFR ####[address] [address] Hemoglobin (Bld) [Mass/Vol] 12.0 G/dL Low 13.0-17.5 [facility] ([place]) Comment on above: Performed By: #### C BC, ADIFF, ANEU, CMP, GFR ####[place] [phone] MCH (RBC) [Entitic mass] 32.0 pg Normal 27.0-33.0 [facility] ([place]) Comment on above: Performed By: #### C BC, ADIFF, ANEU, CMP, GFR ####[place] [address] MCHC (RBC) [Mass/Vol] 34.1 G/dL Normal 32.0-36.0 [facility] ([place]) Comment on above: Performed By: #### C BC, ADIFF, ANEU, CMP, GFR ####[place] [address] MCV (RBC) [Entitic vol] 94.1 fL Normal 81.0-100.0 [facility] ([place]) Comment on above: Performed By: #### C BC, ADIFF, ANEU, CMP, GFR ####[place] [address] Platelet mean volume (Bld) [Entitic vol] 6.9 fL Normal 6.4-10.5 [facility] ([place]) Comment on above: Performed By: #### C BC, ADIFF, ANEU, CMP, GFR ####[place] [phone] Platelets (Bld) [#/Vol] 109 10 3/mcL Low 150-450 [facility] ([place]) Comment on above: Performed By: #### C BC, ADIFF, ANEU, CMP, GFR ####[place] [phone] RBC (Bld) [#/Vol] 3.76 10 6/mcL Low 4.50-6.00 [facility] ([place]) Comment on above: Performed By: #### C BC, ADIFF, ANEU, CMP, GFR ####[place] [phone] WBC (Bld) [#/Vol] 5.00 10 3/mcL Normal 4.50-10.80 [facility] ([place]) Comment on above: Performed By: #### C BC, ADIFF, ANEU, CMP, GFR ####[place] [address] Erythrocyte distribution width (RBC) [Ratio] 13.6 % Normal 11.5-15.5 [facility] ([place]) Comment on above: Performed By: #### C BC, ADIFF, ANEU, BMP, GFR ####[place] [address] Hematocrit (Bld) [Volume fraction] 28.1 % Low 34.0-46.0 [facility] ([place]) Comment on above: Performed By: #### C BC, ADIFF, ANEU, BMP, GFR ####[place] [address] Hemoglobin (Bld) [Mass/Vol] 9.4 G/dL Low 12.0-16.0 [facility] ([place]) Comment on above: Performed By: #### C BC, ADIFF, ANEU, BMP, GFR ####[place] [address] MCH (RBC) [Entitic mass] 32.4 pg Normal 27.0-33.0 [facility] ([place]) Comment on above: Performed By: #### C BC, ADIFF, ANEU, BMP, GFR ####[place] [address] MCHC (RBC) [Mass/Vol] 33.5 G/dL Normal 32.0-36.0 [facility] ([place]) Comment on above: Performed By: #### C BC, ADIFF, ANEU, BMP, GFR ####[place] [address] MCV (RBC) [Entitic vol] 96.7 fL Normal 80.0-99.0 [facility] ([place]) Comment on above: Performed By: #### C BC, ADIFF, ANEU, BMP, GFR ####[address] [address] Platelet mean volume (Bld) [Entitic vol] 7.5 fL Normal 6.6-10.5 [facility] ([place]) Comment on above: Performed By: #### C BC, ADIFF, ANEU, BMP, GFR ####[address] [address] Platelets (Bld) [#/Vol] 257 10 3/mcL Normal 150-450 [facility] ([place]) Comment on above: Performed By: #### C BC, ADIFF, ANEU, BMP, GFR ####[address] [address] RBC (Bld) [#/Vol] 2.90 10 6/mcL Low 4.10-5.30 [facility] ([place]) Comment on above: Performed By: #### C BC, ADIFF, ANEU, BMP, GFR ####[address] [address] WBC (Bld) [#/Vol] 6.50 10 3/mcL Normal 4.50-10.80 [facility] ([place]) Comment on above: Performed By: #### C BC, ADIFF, ANEU, BMP, GFR ####[address] [address] Erythrocyte distribution width (RBC) [Ratio] 13.8 % Normal 11.5-15.5 [facility] ([place]) Comment on above: Performed By: #### C BC, ADIFF, ANEU #### [address] [address] #### BMP, GFR #### [address] [address] Hematocrit (Bld) [Volume fraction] 27.4 % Low 34.0-46.0 [facility] ([place]) Comment on above: Performed By: #### C BC, ADIFF, ANEU #### [address] [address] #### BMP, GFR #### [address] [address] Hemoglobin (Bld) [Mass/Vol] 9.4 G/dL Low 12.0-16.0 [facility] ([place]) Comment on above: Performed By: #### C BC, ADIFF, ANEU #### [address] [address] #### BMP, GFR #### [address] [address] MCH (RBC) [Entitic mass] 30.3 pg Normal 27.0-33.0 [facility] ([place]) Comment on above: Performed By: #### C BC, ADIFF, ANEU #### [place] [address] #### BMP, GFR #### [address] [address] MCHC (RBC) [Mass/Vol] 34.4 G/dL Normal 32.0-36.0 [facility] ([place]) Comment on above: Performed By: #### C BC, ADIFF, ANEU #### [place] [address] #### BMP, GFR #### [address] [address] MCV (RBC) [Entitic vol] 88.2 fL Normal 80.0-99.0 [facility] ([place]) Comment on above: Performed By: #### C BC, ADIFF, ANEU #### [place] [address] #### BMP, GFR #### [address] [address] Platelet mean volume (Bld) [Entitic vol] 8.1 fL Normal 6.6-10.5 [facility] ([place]) Comment on above: Performed By: #### C BC, ADIFF, ANEU #### [place] [address] #### BMP, GFR #### [address] [address] Platelets (Bld) [#/Vol] 188 10 3/mcL Normal 150-450 [facility] ([place]) Comment on above: Performed By: #### C BC, ADIFF, ANEU #### [address] [address] #### BMP, GFR #### [address] [address] RBC (Bld) [#/Vol] 3.11 10 6/mcL Low 4.10-5.30 [facility] ([place]) Comment on above: Performed By: #### C BC, ADIFF, ANEU #### [address] [address] #### BMP, GFR #### [place] [address] WBC (Bld) [#/Vol] 6.70 10 3/mcL Normal 4.50-10.80 [facility] ([place]) Comment on above: Performed By: #### C BC, ADIFF, ANEU #### [address] [address] #### BMP, GFR #### [place] [address] CMPon 06-07-2019 Albumin/Globulin [Mass ratio] 0.8 {ratio} Low 0.9-1.6 [facility] ([place]) Comment on above: Performed By: #### C BC, ADIFF, ANEU, CMP, GFR ####[place] [address] ALP [Catalytic activity/Vol] 47 U/L Normal 38-126 [facility] ([place]) Comment on above: Performed By: #### C BC, ADIFF, ANEU, CMP, GFR ####[place] [address] Bili Total 0.5 mg/dL Normal 0.2-1.2 [facility] ([place]) Comment on above: Performed By: #### C BC, ADIFF, ANEU, CMP, GFR ####[address] [place] [address] Creatinine [Mass/Vol] 0.66 mg/dL Normal 0.60-1.40 [facility] ([place]) Comment on above: Performed By: #### C BC, ADIFF, ANEU, CMP, GFR ####[address] [address] Globulin (S) [Mass/Vol] 2.7 G/dL Normal 1.5-3.8 [facility] ([place]) Comment on above: Performed By: #### C BC, ADIFF, ANEU, CMP, GFR ####[address] [address] Protein [Mass/Vol] 4.8 G/dL Low 6.0-8.5 [facility] ([place]) Comment on above: Performed By: #### C BC, ADIFF, ANEU, CMP, GFR ####[address] [address] Urea nitrogen/Creatinine [Mass ratio] 4.5 ratio Low 10.0-22.0 [facility] ([place]) Comment on above: Performed By: #### C BC, ADIFF, ANEU, CMP, GFR ####[address] [address] Albumin [Mass/Vol] 2.1 G/dL Low 3.2-4.8 [facility] ([place]) Comment on above: Performed By: #### C BC, ADIFF, ANEU, CMP, GFR ####[address] [address] ALT [Catalytic activity/Vol] 16 U/L Normal 12-55 [facility] ([place]) Comment on above: Performed By: #### C BC, ADIFF, ANEU, CMP, GFR ####[address] [address] AST [Catalytic activity/Vol] 11 U/L Normal 8-34 [facility] ([place]) Comment on above: Performed By: #### C BC, ADIFF, ANEU, CMP, GFR ####[address] [address] Calcium [Mass/Vol] 7.8 mg/dL Low 8.4-10.1 [facility] ([place]) Comment on above: Performed By: #### C BC, ADIFF, ANEU, CMP, GFR ####[address] [address] Chloride [Moles/Vol] 113 mmol/L High 98-110 [facility] ([place]) Comment on above: Performed By: #### C BC, ADIFF, ANEU, CMP, GFR ####[address] [address] CO2 [Moles/Vol] 30 mmol/L Normal 22-32 [facility] ([place]) Comment on above: Performed By: #### C BC, ADIFF, ANEU, CMP, GFR ####[address] [address] Electrolyte Balance 5.0 mEq/L Normal 4.0-15.0 [facility] ([place]) Comment on above: Performed By: #### C BC, ADIFF, ANEU, CMP, GFR ####[address] [address] Glucose [Mass/Vol] 124 mg/dL High 70-110 [facility] ([place]) Comment on above: Performed By: #### C BC, ADIFF, ANEU, CMP, GFR ####[address] [address] Potassium [Moles/Vol] 3.7 mmol/L Normal 3.5-5.0 [facility] ([place]) Comment on above: Performed By: #### C BC, ADIFF, ANEU, CMP, GFR ####[address] [address] Sodium [Moles/Vol] 148 mmol/L High 136-145 [facility] ([place]) Comment on above: Performed By: #### C BC, ADIFF, ANEU, CMP, GFR ####[address] [address] Urea nitrogen [Mass/Vol] 3.0 mg/dL Low 8.0-22.0 [facility] ([place]) Comment on above: Performed By: #### C BC, ADIFF, ANEU, CMP, GFR ####[place] [address] [place] [address] HHon 06-07-2019 Hematocrit (Bld) [Volume fraction] 27.4 % Low 34.0-46.0 [facility] ([place]) Comment on above: Performed By: #### H H ####[place] [address] [place] [address] Hemoglobin (Bld) [Mass/Vol] 9.6 G/dL Low 12.0-16.0 [facility] ([place]) Comment on above: Performed By: #### H H ####[address] [address] XR CHEST 1 VIEWon 06-07-2019 XR CHEST [...] AM Sign Date: 06/07/2019 7:43:21 AM Normal [facility] ([place]) .Auto Diffon 06-06-2019 Ammonia (P) [Mass/Vol] 0.70 10 3/mcL Normal 0.09-1.40 [facility] ([place]) Comment on above: Performed By: #### C STEPHANIE KRISHNAMURTHY ANEU #### [address] [address] #### BMP, GFR #### [address] [address] Basophils (Bld) [#/Vol] 0.00 10 3/mcL Normal 0.00-0.27 [facility] ([place]) Comment on above: Performed By: #### C BCSTEPHANIE ANEU #### [address] [address] #### BMP, GFR #### [address] [address] Basophils/100 WBC (Bld) 0.4 % Normal 0.0-2.5 [facility] ([place]) Comment on above: Performed By: #### C BC, ADIFF, ANEU #### [address] [address] #### BMP, GFR #### [address] [address] Eosinophils (Bld) [#/Vol] 0.10 10 3/mcL Normal 0.00-0.65 [facility] ([place]) Comment on above: Performed By: #### C BC, ADIFF, ANEU #### [place] [address] #### BMP, GFR #### [address] [address] Eosinophils/100 WBC (Bld) 0.8 % Normal 0.0-6.0 [facility] ([place]) Comment on above: Performed By: #### C BC, ADIFF, ANEU #### [place] [address] #### BMP, GFR #### [address] [address] Lymphocytes (Bld) [#/Vol] 0.70 10 3/mcL Low 0.90-4.32 [facility] ([place]) Comment on above: Performed By: #### C BC, ADIFF, ANEU #### [place] [address] #### BMP, GFR #### [address] [address] Lymphocytes/100 WBC (Bld) 9.2 % Low 20.0-40.0 [facility] ([place]) Comment on above: Performed By: #### C BC, ADIFF, ANEU #### [place] [address] #### BMP, GFR #### [address] [address] Monocytes/100 WBC (Bld) 9.6 % Normal 2.0-13.0 [facility] ([place]) Comment on above: Performed By: #### C BC, ADIFF, ANEU #### [place] [address] [address] #### BMP, GFR #### [facility] [address] [place] [address] Neutrophils/100 WBC (Bld) 80.0 % High 50.0-75.0 [facility] ([place]) Comment on above: Performed By: #### C BC, ADIFF, ANEU #### [address] [address] #### BMP, GFR #### [facility] [address] [place] [address] .GFRon 06-06-2019 GFR Non- >60 Normal [facility] ([place]) Comment on above: Result Comment: GFR Population [...] #### C BC, ADIFF, ANEU #### [place] [address] [place], [place] [address] #### BMP, GFR #### [place] [id number] [place] [address] GFR >60 Normal [facility] ([place]) Comment on above: Result Comment: GFR Population [...] Performed By: #### C BCBRYANIFF, ANEU #### [place] [address] #### BMP, GFR #### [address] [address] .NEUABSon 06-06-2019 Neutrophils (Bld) [#/Vol] 6.20 10 3/mcL Normal 2.25-8.10 [facility] ([place]) Comment on above: Performed By: #### C BCSTEPHANIE, ANEU #### [place] [address] #### BMP, GFR #### [place] [address] BMPon 06-06-2019 Calcium [Mass/Vol] 8.0 mg/dL Low 8.4-10.1 [facility] ([place]) Comment on above: Performed By: #### C BCBRYANIFF, ANEU #### [place] [address] #### BMP, GFR #### [place] [address] Chloride [Moles/Vol] 104 mmol/L Normal 98-110 [facility] ([place]) Comment on above: Performed By: #### C BC, ADIFF, ANEU #### [place] [address] #### BMP, GFR #### [address] [address] CO2 [Moles/Vol] 26 mmol/L Normal 22-32 [facility] ([place]) Comment on above: Performed By: #### C BC, ADIFF, ANEU #### [address] [address] #### BMP, GFR #### [address] [address] Creatinine [Mass/Vol] 0.66 mg/dL Normal 0.50-1.20 [facility] ([place]) Comment on above: Performed By: #### C BC, ADIFF, ANEU #### [place] [address] #### BMP, GFR #### [address] [address] Electrolyte Balance 10.0 mEq/L Normal 4.0-15.0 [facility] ([place]) Comment on above: Performed By: #### C BC, ADIFF, ANEU #### [place] [address] #### BMP, GFR #### [place] [address] Glucose [Mass/Vol] 104 mg/dL Normal 82-115 [facility] ([place]) Comment on above: Performed By: #### C BC, ADIFF, ANEU #### [place] [address] #### BMP, GFR #### [address] [address] Potassium [Moles/Vol] 3.2 mmol/L Low 3.5-5.0 [facility] ([place]) Comment on above: Performed By: #### C BC, ADIFF, ANEU #### [place] [address] #### BMP, GFR #### [address] [address] Sodium [Moles/Vol] 140 mmol/L Normal 136-145 [facility] ([place]) Comment on above: Performed By: #### C BC, ADIFF, ANEU #### [place] [address] #### BMP, GFR #### [place] [id number] Urea nitrogen [Mass/Vol] 10.0 mg/dL Normal 8.0-22.0 [facility] ([place]) Comment on above: Performed By: #### C BRYAN KRISHNAMURTHYIFF, ANEU #### [place] [address] #### BMP, GFR #### [address] [address] Urea nitrogen/Creatinine [Mass ratio] 15.2 ratio Normal 10.0-22.0 [facility] ([place]) Comment on above: Performed By: #### C BCBRYANIFF, ANEU #### [place] [address] #### BMP, GFR #### [place] [address] CBCon 06-06-2019 Erythrocyte distribution width (RBC) [Ratio] 13.6 % Normal 11.5-15.5 [facility] ([place]) Comment on above: Performed By: #### C STEPHANIE KRISHNAMURTHY, ANEU #### [place] [address] #### BMP, GFR #### [place] [address] Hematocrit (Bld) [Volume fraction] 27.0 % Low 34.0-46.0 [facility] ([place]) Comment on above: Performed By: #### C STEPHANIE KRISHNAMURTHY, ANEU #### [place] [address] #### BMP, GFR #### [place] [address] Hemoglobin (Bld) [Mass/Vol] 9.2 G/dL Low 12.0-16.0 [facility] ([place]) Comment on above: Performed By: #### C BRYAN KRISHNAMURTHYIFF, ANEU #### [place] [address] #### BMP, GFR #### [place] [address] MCH (RBC) [Entitic mass] 30.0 pg Normal 27.0-33.0 [facility] ([place]) Comment on above: Performed By: #### C BC, ADIFF, ANEU #### [address] [address] #### BMP, GFR #### [address] [address] MCHC (RBC) [Mass/Vol] 34.1 G/dL Normal 32.0-36.0 [facility] ([place]) Comment on above: Performed By: #### C BC, ADIFF, ANEU #### [place] [address] #### BMP, GFR #### [address] [address] MCV (RBC) [Entitic vol] 88.0 fL Normal 80.0-99.0 [facility] ([place]) Comment on above: Performed By: #### C BC, ADIFF, ANEU #### [place] [address] #### BMP, GFR #### [address] [address] Platelet mean volume (Bld) [Entitic vol] 8.2 fL Normal 6.6-10.5 [facility] ([place]) Comment on above: Performed By: #### C BC, ADIFF, ANEU #### [place] [address] #### BMP, GFR #### [address] [address] Platelets (Bld) [#/Vol] 155 10 3/mcL Normal 150-450 [facility] ([place]) Comment on above: Performed By: #### C BC, ADIFF, ANEU #### [place] [address] #### BMP, GFR #### [address] [address] RBC (Bld) [#/Vol] 3.07 10 6/mcL Low 4.10-5.30 [facility] ([place]) Comment on above: Performed By: #### C BC, ADIFF, ANEU #### [address] [address] #### BMP, GFR #### [address] [address] WBC (Bld) [#/Vol] 7.70 10 3/mcL Normal 4.50-10.80 [facility] ([place]) Comment on above: Performed By: #### C BCBRYANIFF, ANEU #### [address] [address] #### BMP, GFR #### [address] [address] XR CHEST 1 VIEWon 06-06-2019 XR CHEST [...] By: Daryl Dominguez MD Preliminary Report By: Darly Dominguez MD Electronically Signed By: Daryl Dominguez MD Dictated Date: 06/06/2019 6:37:57 AM Prelim Date: 06/06/2019 6:37:57 AM Sign Date: 06/06/2019 6:40:06 AM Normal [facility] ([place]) .Auto Diffon 06-05-2019 Ammonia (P) [Mass/Vol] 1.20 10 3/mcL Normal 0.09-1.40 [facility] ([place]) Comment on above: Performed By: #### C BRYAN KRISHNAMURTHYIFF, ANEU #### [address] [address] #### BMP, GFR #### [address] [address] Basophils (Bld) [#/Vol] 0.00 10 3/mcL Normal 0.00-0.27 [facility] ([place]) Comment on above: Performed By: #### C BC, ADIFF, ANEU #### [address] [address] #### BMP, GFR #### [address] [address] Basophils/100 WBC (Bld) 0.4 % Normal 0.0-2.5 [facility] ([place]) Comment on above: Performed By: #### C BC, ADIFF, ANEU #### [address] [address] #### BMP, GFR #### [address] [address] Eosinophils (Bld) [#/Vol] 0.10 10 3/mcL Normal 0.00-0.65 [facility] ([place]) Comment on above: Performed By: #### C BC, ADIFF, ANEU #### [place] [address] #### BMP, GFR #### [address] [address] Eosinophils/100 WBC (Bld) 0.6 % Normal 0.0-6.0 [facility] ([place]) Comment on above: Performed By: #### C BC, ADIFF, ANEU #### [place] [address] #### BMP, GFR #### [address] [address] Lymphocytes (Bld) [#/Vol] 1.10 10 3/mcL Normal 0.90-4.32 [facility] ([place]) Comment on above: Performed By: #### C BC, ADIFF, ANEU #### [address] [address] #### BMP, GFR #### [address] [address] Lymphocytes/100 WBC (Bld) 9.5 % Low 20.0-40.0 [facility] ([place]) Comment on above: Performed By: #### C BC, ADIFF, ANEU #### [place] [address] #### BMP, GFR #### [facility] [address] [place] [address] Monocytes/100 WBC (Bld) 9.9 % Normal 2.0-13.0 [facility] ([place]) Comment on above: Performed By: #### C BC, ADIFF, ANEU #### [address] [address] #### BMP, GFR #### [address] [address] Neutrophils/100 WBC (Bld) 79.6 % High 50.0-75.0 [facility] ([place]) Comment on above: Performed By: #### C BC, ADIFF, ANEU #### [address] [address] #### BMP, GFR #### [address] [address] .GFRon 06-05-2019 GFR >60 Normal [facility] ([place]) Comment on above: Result Comment: GFR Population [...] By: #### C BC, ADIFF, ANEU #### [address] [address] #### BMP, GFR #### [address] [address] GFR Non- >60 Normal [facility] ([place]) Comment on above: Result Comment: GFR Population [...] Performed By: #### C BCBRYANIFF, ANEU #### [place] [address] #### BMP, GFR #### [place] [address] .Morphon 06-05-2019 Platelets (Bld) [#/Vol] Slt Decreased Normal [facility] ([place]) Comment on above: Performed By: #### C STEPHANIE KRISHNAMURTHY, ANEU #### [place] [address] #### BMP, GFR #### [place] [address] RBC morphology finding Nom (Bld) Normal Normal [facility] ([place]) Comment on above: Performed By: #### C STEPHANIE KRISHNAMURTHY, ANEU #### [place] [address] #### BMP, GFR #### [place] [address] .NEUABSon 06-05-2019 Neutrophils (Bld) [#/Vol] 9.30 10 3/mcL High 2.25-8.10 [facility] ([place]) Comment on above: Performed By: #### C STEPHANIE KRISHNAMURTHY, ANEU #### [place] [address] #### BMP, GFR #### [place] [address] BMPon 06-05-2019 Calcium [Mass/Vol] 8.2 mg/dL Low 8.4-10.1 [facility] ([place]) Comment on above: Performed By: #### C BC, ADIFF, ANEU #### [address] [address] #### BMP, GFR #### [address] [address] CO2 [Moles/Vol] 23 mmol/L Normal 22-32 [facility] ([place]) Comment on above: Performed By: #### C BC, ADIFF, ANEU #### [address] [address] #### BMP, GFR #### [address] [address] Creatinine [Mass/Vol] 0.65 mg/dL Normal 0.50-1.20 [facility] ([place]) Comment on above: Performed By: #### C BC, ADIFF, ANEU #### [address] [address] #### BMP, GFR #### [address] [address] Electrolyte Balance 11.0 mEq/L Normal 4.0-15.0 [facility] ([place]) Comment on above: Performed By: #### C BC, ADIFF, ANEU #### [address] [address] #### BMP, GFR #### [address] [address] Glucose [Mass/Vol] 114 mg/dL Normal 82-115 [facility] ([place]) Comment on above: Performed By: #### C BC, ADIFF, ANEU #### [address] [address] #### BMP, GFR #### [address] [address] Potassium [Moles/Vol] 4.2 mmol/L Normal 3.5-5.0 [facility] ([place]) Comment on above: Performed By: #### C BC, ADIFF, ANEU #### [address] [address] #### BMP, GFR #### [address] [address] Urea nitrogen [Mass/Vol] 9.0 mg/dL Normal 8.0-22.0 [facility] ([place]) Comment on above: Performed By: #### C BC, ADIFF, ANEU #### [address] [address] #### BMP, GFR #### [address] [address] Urea nitrogen/Creatinine [Mass ratio] 13.8 ratio Normal 10.0-22.0 [facility] ([place]) Comment on above: Performed By: #### C BC, ADIFF, ANEU #### [address] [address] #### BMP, GFR #### [address] [address] Chloride [Moles/Vol] 107 mmol/L Normal 98-110 [facility] ([place]) Comment on above: Performed By: #### C BC, ADIFF, ANEU #### [address] [address] #### BMP, GFR #### [address] [address] Sodium [Moles/Vol] 141 mmol/L Normal 136-145 [facility] ([place]) Comment on above: Performed By: #### C BC, ADIFF, ANEU #### [place] [address] #### BMP, GFR #### [address] [address] CBCon 06-05-2019 Platelet mean volume (Bld) [Entitic vol] 9.1 fL Normal 6.6-10.5 [facility] ([place]) Comment on above: Performed By: #### C BC, ADIFF, ANEU #### [address] [address] #### BMP, GFR #### [address] [address] Platelets (Bld) [#/Vol] 143 10 3/mcL Low 150-450 [facility] ([place]) Comment on above: Performed By: #### C BC, ADIFF, ANEU #### [address] [address] #### BMP, GFR #### [address] [address] Erythrocyte distribution width (RBC) [Ratio] 14.0 % Normal 11.5-15.5 [facility] ([place]) Comment on above: Performed By: #### C BC, ADIFF, ANEU #### [address] [address] #### BMP, GFR #### [address] [address] Hematocrit (Bld) [Volume fraction] 30.7 % Low 34.0-46.0 [facility] ([place]) Comment on above: Performed By: #### C BC, ADIFF, ANEU #### [place] [address] #### BMP, GFR #### [address] [address] Hemoglobin (Bld) [Mass/Vol] 10.7 G/dL Low 12.0-16.0 [facility] ([place]) Comment on above: Performed By: #### C BC, ADIFF, ANEU #### [place] [address] #### BMP, GFR #### [address] [address] MCH (RBC) [Entitic mass] 30.4 pg Normal 27.0-33.0 [facility] ([place]) Comment on above: Performed By: #### C BC, ADIFF, ANEU #### [place] [address] #### BMP, GFR #### [address] [address] MCHC (RBC) [Mass/Vol] 34.8 G/dL Normal 32.0-36.0 [facility] ([place]) Comment on above: Performed By: #### C BC, ADIFF, ANEU #### [place] [address] #### BMP, GFR #### [place] [address] MCV (RBC) [Entitic vol] 87.6 fL Normal 80.0-99.0 [facility] ([place]) Comment on above: Performed By: #### C BC, ADIFF, ANEU #### [place] [address] #### BMP, GFR #### [place] [address] RBC (Bld) [#/Vol] 3.50 10 6/mcL Low 4.10-5.30 [facility] ([place]) Comment on above: Performed By: #### C BC, ADIFF, ANEU #### [place] [address] #### BMP, GFR #### [place] [address] WBC (Bld) [#/Vol] 11.60 10 3/mcL High 4.50-10.80 [facility] ([place]) Comment on above: Performed By: #### C BC ADIFF, ANEU #### [place] [address] #### BMP, GFR #### [place] [address] XR CHEST 1 VIEWon 06-05-2019 XR CHEST [...] AM Sign Date: 06/05/2019 7:45:20 AM Normal [facility] ([place]) XR CHEST 1 VIEW ORIGINAL PORTABLE UPRIGHT [...] PM Sign Date: 06/04/2019 11:53:30 PM Normal [facility] ([place]) .Auto Diffon 06-04-2019 Ammonia (P) [Mass/Vol] 0.90 10 3/mcL Normal 0.09-1.40 [facility] ([place]) Comment on above: Performed By: #### C STEPHANIE KRISHNAMURTHY ANEU #### [address] [address] #### BMP, GFR #### [address] [address] Basophils (Bld) [#/Vol] 0.00 10 3/mcL Normal 0.00-0.27 [facility] ([place]) Comment on above: Performed By: #### C STEPHANIE KRISHNAMURTHY ANEU #### [address] [address] #### BMP, GFR #### [address] [address] Basophils/100 WBC (Bld) 0.3 % Normal 0.0-2.5 [facility] ([place]) Comment on above: Performed By: #### C BC, ADIFF, ANEU #### [place] [address] #### BMP, GFR #### [address] [address] Eosinophils (Bld) [#/Vol] 0.00 10 3/mcL Normal 0.00-0.65 [facility] ([place]) Comment on above: Performed By: #### C BC, ADIFF, ANEU #### [place] [address] #### BMP, GFR #### [address] [address] Eosinophils/100 WBC (Bld) 0.1 % Normal 0.0-6.0 [facility] ([place]) Comment on above: Performed By: #### C BC, ADIFF, ANEU #### [place] [address] #### BMP, GFR #### [address] [address] Lymphocytes (Bld) [#/Vol] 0.90 10 3/mcL Normal 0.90-4.32 [facility] ([place]) Comment on above: Performed By: #### C BC, ADIFF, ANEU #### [place] [address] #### BMP, GFR #### [address] [address] Lymphocytes/100 WBC (Bld) 10.3 % Low 20.0-40.0 [facility] ([place]) Comment on above: Performed By: #### C BC, ADIFF, ANEU #### [place] [address] #### BMP, GFR #### [address] [address] Monocytes/100 WBC (Bld) 9.5 % Normal 2.0-13.0 [facility] ([place]) Comment on above: Performed By: #### C BC, ADIFF, ANEU #### [address] [address] #### BMP, GFR #### [address] [address] Neutrophils/100 WBC (Bld) 79.8 % High 50.0-75.0 [facility] ([place]) Comment on above: Performed By: #### C BC, ADIFF, ANEU #### [address] [address] #### BMP, GFR #### [address] [address] .GFRon 06-04-2019 GFR >60 Normal [facility] ([place]) Comment on above: Result Comment: GFR Population [...] By: #### C BC, ADIFF, ANEU #### [address] [address] #### BMP, GFR #### [address] [address] GFR Non- >60 Normal [facility] ([place]) Comment on above: Result Comment: GFR Population [...] By: #### C BC, ADIFF, ANEU #### [address] [address] #### BMP, GFR #### [address] [address] .NEUABSon 06-04-2019 Neutrophils (Bld) [#/Vol] 7.20 10 3/mcL Normal 2.25-8.10 [facility] ([place]) Comment on above: Performed By: #### C BCBRYANIFF, ANEU #### [place] [address] #### BMP, GFR #### [address] [address] BMPon 06-04-2019 Calcium [Mass/Vol] 8.8 mg/dL Normal 8.4-10.1 [facility] ([place]) Comment on above: Performed By: #### C BCBRYANIFF, ANEU #### [place] [address] #### BMP, GFR #### [address] [address] Chloride [Moles/Vol] 109 mmol/L Normal 98-110 [facility] ([place]) Comment on above: Performed By: #### C BC ADIFF, ANEU #### [place] [address] #### BMP, GFR #### [address] [address] CO2 [Moles/Vol] 25 mmol/L Normal 22-32 [facility] ([place]) Comment on above: Performed By: #### C BC, ADIFF, ANEU #### [place] [address] #### BMP, GFR #### [address] [address] Creatinine [Mass/Vol] 0.82 mg/dL Normal 0.50-1.20 [facility] ([place]) Comment on above: Performed By: #### C BC, ADIFF, ANEU #### [address] [address] #### BMP, GFR #### [address] [address] Electrolyte Balance 8.0 mEq/L Normal 4.0-15.0 [facility] ([place]) Comment on above: Performed By: #### C BC, ADIFF, ANEU #### [address] [address] #### BMP, GFR #### [address] [address] Glucose [Mass/Vol] 132 mg/dL High 82-115 [facility] ([place]) Comment on above: Performed By: #### C BC, ADIFF, ANEU #### [place] [address] #### BMP, GFR #### [address] [address] Potassium [Moles/Vol] 4.3 mmol/L Normal 3.5-5.0 [facility] ([place]) Comment on above: Performed By: #### C BC, ADIFF, ANEU #### [place] [address] #### BMP, GFR #### [address] [address] Sodium [Moles/Vol] 142 mmol/L Normal 136-145 [facility] ([place]) Comment on above: Performed By: #### C BC, ADIFF, ANEU #### [place] [address] #### BMP, GFR #### [address] [address] Urea nitrogen [Mass/Vol] 12.0 mg/dL Normal 8.0-22.0 [facility] ([place]) Comment on above: Performed By: #### C BC, ADIFF, ANEU #### [address] [address] #### BMP, GFR #### [address] [address] Urea nitrogen/Creatinine [Mass ratio] 14.6 ratio Normal 10.0-22.0 [facility] ([place]) Comment on above: Performed By: #### C BC, ADIFF, ANEU #### [address] [address] #### BMP, GFR #### [address] [address] CBCon 06-04-2019 Erythrocyte distribution width (RBC) [Ratio] 14.0 % Normal 11.5-15.5 [facility] ([place]) Comment on above: Performed By: #### C RAGHU ADIFF, ANEU #### [address] [address] #### BMP, GFR #### [place] [address] Hematocrit (Bld) [Volume fraction] 38.5 % Normal 34.0-46.0 [facility] ([place]) Comment on above: Performed By: #### C BRYAN KRISHNAMURTHYIFF, ANEU #### [place] [address] #### BMP, GFR #### [address] [address] Hemoglobin (Bld) [Mass/Vol] 13.0 G/dL Normal 12.0-16.0 [facility] ([place]) Comment on above: Performed By: #### C BC, ADIFF, ANEU #### [address] [address] #### BMP, GFR #### [address] [address] MCH (RBC) [Entitic mass] 30.1 pg Normal 27.0-33.0 [facility] ([place]) Comment on above: Performed By: #### C BC ADIFF, ANEU #### [place] [id number] #### BMP, GFR #### [address] [address] MCHC (RBC) [Mass/Vol] 33.7 G/dL Normal 32.0-36.0 [facility] ([place]) Comment on above: Performed By: #### C BC, ADIFF, ANEU #### [address] [address] #### BMP, GFR #### [address] [address] MCV (RBC) [Entitic vol] 89.5 fL Normal 80.0-99.0 [facility] ([place]) Comment on above: Performed By: #### C BC, ADIFF, ANEU #### [place] [id number] #### BMP, GFR #### [address] [address] Platelet mean volume (Bld) [Entitic vol] 7.6 fL Normal 6.6-10.5 [facility] ([place]) Comment on above: Performed By: #### C BC, ADIFF, ANEU #### [place] [id number] #### BMP, GFR #### [address] [address] Platelets (Bld) [#/Vol] 197 10 3/mcL Normal 150-450 [facility] ([place]) Comment on above: Performed By: #### C BC, ADIFF, ANEU #### [place] [id number] #### BMP, GFR #### [address] [address] RBC (Bld) [#/Vol] 4.31 10 6/mcL Normal 4.10-5.30 [facility] ([place]) Comment on above: Performed By: #### C BC, ADIFF, ANEU #### [address] [address] #### BMP, GFR #### [address] [place] [address] WBC (Bld) [#/Vol] 9.00 10 3/mcL Normal 4.50-10.80 [facility] ([place]) Comment on above: Performed By: #### C BC, ADYAMILEX, ANEU #### [place] [id number] [place], [place] [address] #### BMP, GFR #### [address] [address] [address] ANKLE W/O CONTRAST RIGHTo n 06-04-2019 [...] PM Sign Date: 06/04/2019 12:03:00 AM Normal [facility] ([place]) CT WRIST W/O CONTRAST RIGHTo n 06-04-2019 [...] AM Sign Date: 06/04/2019 12:04:55 AM Normal [facility] ([place]) PROon 06-04-2019 INR Coag (PPP) [Relative time] 1.0 {INR} Normal [facility] ([place]) Comment on above: Result Comment: [employer] (CHEST, 1992, [id number]) recommended therapeutic range for oral anticoagulant therapy is: LOW RISK: Prophylaxis of venous thrombosis INR: 2.0-3.0 Treatment of pulmonary embolism 2.0-3.0 Prevention of systemic embolism 2.0-3.0 HIGH RISK: Mechanical prosthetic valves 2.5-3.5 Performed By: #### C BC, ADIFF, ANEU #### [facility] [address] [place], [place] [address] #### BMP, GFR #### [address] [address] PT Coag (PPP) [Time] 12.0 s Normal 9.0-14.6 [facility] ([place]) Comment on above: Result Comment: Effe ctive 03/28/08, Protime results may be affected by some antibiotics (i.e. Ciprofloxacin, Azithromycin, Bactrim) which may potentiate the action of oral anticoagulants, with further increases in Protime/INR. Performed By: #### C BC, ADIFF, ANEU #### [address] [address] #### BMP, GFR #### [place] [address] TABOon 06-04-2019 ABO/Rh Interp Negative [facility] ([place]) Comment on above: Performed By: #### C BC, ADIFF, ANEU #### [address] [address] #### BMP, GFR #### [place] [address] TABSon 06-04-2019 Antibody Screen Tango Negative Normal [facility] ([place]) Comment on above: Performed By: #### C BC, ADIFF, ANEU #### [place] [address] #### BMP, GFR #### [place] [address] XR CHEST 1 VIEWon 06-04-2019 XR CHEST [...] AM Sign Date: 06/04/2019 5:25:45 AM Normal [facility] ([place]) XR FLUORO < 1HR TECH TIMEon 06-04-2019 XR FLUORO < 1HR TECH TIME ORIGINAL Intraoperative fluoroscopy and image intensifier views of the right ankle Clinical Statement: rt ankle fx, internal fixation Comparison: Radiographs 06/03/2019 FINDINGS: Technical Details: Tech Time - < 1hr\X0D0A\1120-2p total for both ; C-Arm # - 7; Total Dose - .85mGy; Images - 6; 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; History - rt ankle fx, [...] PM Sign Date: 06/04/2019 3:30:03 PM Normal [facility] ([place]) XR FLUORO 1-2 HRS TECH TIMEo n 06-04-2019 XR FLUORO 1-2 HRS TECH TIME ORIGINAL Intraoperative fluoroscopy and image intensifier views of the right wrist Clinical Statement: rt wrist fx, internal fixation Comparison: 06/03/2019 FINDINGS: Technical Details: Tech Time - 1120-2p total for both exams; C-Arm # - 7; Total Dose - 1.71mGy; Images - 5; 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; History - rt wrist fx; [...] PM Sign Date: 06/04/2019 3:36:44 PM Normal [facility] ([place]) XR HAND MINIMUM 3 VIEWS LEFT on [...] AM Sign Date: 06/04/2019 9:53:38 AM Normal [facility] ([place]) .Auto Diffon 06-03-2019 Ammonia (P) [Mass/Vol] 0.60 10 3/mcL Normal 0.15-1.00 [facility] ([place]) Comment on above: Performed By: #### C STEPHANIE KRISHNAMURTHY, ANEU #### [place] [address] #### BMP, GFR #### [address] [address] Basophils (Bld) [#/Vol] 0.00 10 3/mcL Normal 0.00-0.19 [facility] ([place]) Comment on above: Performed By: #### STEPHANIE JOHNSON, ANEU #### [place] [address] #### BMP, GFR #### [address] [address] Basophils/100 WBC (Bld) 0.4 % Normal 0.0-2.5 [facility] ([place]) Comment on above: Performed By: #### C STEPHANIE KRISHNAMURTHY, ANEU #### [place] [address] #### BMP, GFR #### [address] [address] Eosinophils (Bld) [#/Vol] 0.10 10 3/mcL Normal 0.00-0.40 [facility] ([place]) Comment on above: Performed By: #### C BCSTEPHANIE, ANEU #### [place] [address] #### BMP, GFR #### [address] [address] Eosinophils/100 WBC (Bld) 1.0 % Normal 0.0-7.0 [facility] ([place]) Comment on above: Performed By: #### C BCBRYANIFF, ANEU #### [place] [id number] #### BMP, GFR #### [address] [address] Lymphocytes (Bld) [#/Vol] 1.20 10 3/mcL Normal 0.77-3.85 [facility] ([place]) Comment on above: Performed By: #### C BC, ADIFF, ANEU #### [address] [address] #### BMP, GFR #### [address] [address] Lymphocytes/100 WBC (Bld) 12.6 % Normal 10.0-50.0 [facility] ([place]) Comment on above: Performed By: #### C BC, ADIFF, ANEU #### [place] [address] #### BMP, GFR #### [address] [address] Monocytes/100 WBC (Bld) 6.3 % Normal 1.7-13.0 [facility] ([place]) Comment on above: Performed By: #### C BC, ADIFF, ANEU #### [place] [address] #### BMP, GFR #### [address] [address] Neutrophils/100 WBC (Bld) 79.7 % Normal 37.0-80.0 [facility] ([place]) Comment on above: Performed By: #### C BC, ADIFF, ANEU #### [place] [address] #### BMP, GFR #### [address] [address] .GFRon 06-03-2019 GFR 78 ml/min/1.73sqm Normal [facility] ([place]) Comment on above: Result Comment: GFR [...] Performed By: #### C BCBRYANIFF, ANEU #### [address] [address] #### BMP, GFR #### [address] [address] GFR Non- 64 ml/min/1.73sqm Normal [facility] ([place]) Comment on above: Result Comment: GFR Population [...] Performed By: #### C BCSTEPHANIE, ANEU #### [address] [address] #### BMP, GFR #### [address] [address] .NEUABSon 06-03-2019 Neutrophils (Bld) [#/Vol] 7.90 10 3/mcL High 2.85-6.16 [facility] ([place]) Comment on above: Performed By: #### C BCBRYANIFF, ANEU #### [address] [address] #### BMP, GFR #### [address] [address] BMPon 06-03-2019 Calcium [Mass/Vol] 9.2 mg/dL Normal 8.4-10.2 [facility] ([place]) Comment on above: Performed By: #### C BC, ADIFF, ANEU #### [address] [address] #### BMP, GFR #### [address] [address] Chloride [Moles/Vol] 104 mmol/L Normal 98-107 [facility] ([place]) Comment on above: Performed By: #### C BC, ADIFF, ANEU #### [address] [address] #### BMP, GFR #### [place] [address] CO2 [Moles/Vol] 30 mmol/L Normal 23-31 [facility] ([place]) Comment on above: Performed By: #### C BC, ADIFF, ANEU #### [place] [address] #### BMP, GFR #### [address] [address] Creatinine [Mass/Vol] 0.85 mg/dL Normal 0.55-1.02 [facility] ([place]) Comment on above: Performed By: #### C BC, ADIFF, ANEU #### [address] [address] #### BMP, GFR #### [place] [address] Electrolyte Balance 9.0 mEq/L Normal [facility] ([place]) Comment on above: Performed By: #### C BC, ADIFF, ANEU #### [place] [address] #### BMP, GFR #### [place] [address] Glucose [Mass/Vol] 135 mg/dL High 83-110 [facility] ([place]) Comment on above: Performed By: #### C BC, ADIFF, ANEU #### [address] [address] #### BMP, GFR #### [address] [address] Potassium [Moles/Vol] 4.1 mmol/L Normal 3.5-5.1 [facility] ([place]) Comment on above: Performed By: #### C BC, ADIFF, ANEU #### [address] [address] #### BMP, GFR #### [address] [address] Sodium [Moles/Vol] 143 mmol/L Normal 136-145 [facility] ([place]) Comment on above: Performed By: #### C BC, ADIFF, ANEU #### [address] [address] #### BMP, GFR #### [address] [address] Urea nitrogen [Mass/Vol] 14 mg/dL Normal 7-18 [facility] ([place]) Comment on above: Performed By: #### C BC, ADIFF, ANEU #### [address] [address] #### BMP, GFR #### [address] [address] Urea nitrogen/Creatinine [Mass ratio] 16 ratio Normal 7-27 [facility] ([place]) Comment on above: Performed By: #### C BC, ADIFF, ANEU #### [place] [address] #### BMP, GFR #### [address] [address] CBCon 06-03-2019 Erythrocyte distribution width (RBC) [Ratio] 14.3 % Normal 11.5-14.5 [facility] ([place]) Comment on above: Performed By: #### C BC, ADIFF, ANEU #### [address] [address] #### BMP, GFR #### [address] [address] Hematocrit (Bld) [Volume fraction] 38.5 % Normal 37.0-47.0 [facility] ([place]) Comment on above: Performed By: #### C STEPHANIE KRISHNAMURTHY, ANEU #### [address] [address] #### BMP, GFR #### [address] [address] Hemoglobin (Bld) [Mass/Vol] 13.0 G/dL Normal 12.0-16.0 [facility] ([place]) Comment on above: Performed By: #### C STEPHANIE KRISHNAMURTHY, ANEU #### [place] [address] #### BMP, GFR #### [place] [address] MCH (RBC) [Entitic mass] 30.0 pg Normal 27.0-31.2 [facility] ([place]) Comment on above: Performed By: #### C STEPHANIE KRISHNAMURTHY, ANEU #### [place] [address] #### BMP, GFR #### [place] [address] MCHC (RBC) [Mass/Vol] 33.8 G/dL Normal 33.0-37.0 [facility] ([place]) Comment on above: Performed By: #### STEPHANIE JOHNSON, ANEU #### [place] [address] #### BMP, GFR #### [place] [address] MCV (RBC) [Entitic vol] 88.6 fL Normal 80.0-94.0 [facility] ([place]) Comment on above: Performed By: #### STEPHANIE JOHNSON, ANEU #### [place] [address] #### BMP, GFR #### [place] [id number] Platelet mean volume (Bld) [Entitic vol] 8.1 fL Normal 7.4-10.4 [facility] ([place]) Comment on above: Performed By: #### C BC, ADIFF, ANEU #### [address] [address] #### BMP, GFR #### [address] [address] Platelets (Bld) [#/Vol] 221 10 3/mcL Normal 130-400 [facility] ([place]) Comment on above: Performed By: #### C BC, ADIFF, ANEU #### [address] [address] #### BMP, GFR #### [address] [address] RBC (Bld) [#/Vol] 4.35 10 6/mcL Normal 4.20-5.40 [facility] ([place]) Comment on above: Performed By: #### C BC, ADIFF, ANEU #### [place] [address] #### BMP, GFR #### [address] [address] WBC (Bld) [#/Vol] 9.90 10 3/mcL Normal 4.60-10.80 [facility] ([place]) Comment on above: Performed By: #### C BC, ADIFF, ANEU #### [place] [address] #### BMP, GFR #### [address] [address] [address] ABD/PELVIS W/ IV CONTRAST ONLYon 06-03-2019 [...] PM Sign Date: 06/03/2019 4:57:41 PM Normal [facility] ([place] CT HEAD OR BRAIN W/O CONTRAS Ton [...] PM Sign Date: 06/03/2019 4:10:32 PM Normal [facility] ([place] SPINE CERVICAL W/O CONTRA STon 06-03-2019 [...] PM Sign Date: 06/03/2019 4:35:12 PM Normal [facility] ([place]) CT THORAX W/ CONTRASTon 05-16 CT THORAX [...] PM Sign Date: 06/03/2019 4:53:52 PM Normal [facility] ([place]) XR ANKLE AND FOOT 6 VIEWS RI [...] PM Sign Date: 06/03/2019 3:45:45 PM Normal [facility] ([place]) XR ANKLE MINIMUM 3 VIEWS RIG HTon [...] PM Sign Date: 06/03/2019 7:11:45 PM Normal [facility] ([place]) [place]R CHEST 1 VIEWon 06-03-2019 XR CHEST [...] PM Sign Date: 06/03/2019 6:20:15 PM Normal [facility] ([place]) XR CHEST 1 VIEW ORIGINAL XR CHEST [...] Alyson Becker MD Electronically Signed By: Alyson eBcker MD Dictated Date: 06/03/2019 3:46:16 PM Prelim Date: 06/03/2019 3:46:16 PM Sign Date: 06/03/2019 3:47:37 PM Normal [facility] ([place] XR FOREARM 2 VIEWS RIGHTon 0 06-03-2019 [...] PM Sign Date: 06/03/2019 7:13:59 PM Normal [facility] ([place]R KNEE THREE VIEWS RIGHTon 06-03-2019 XR [...] PM Sign Date: 06/03/2019 7:12:24 PM Normal [facility] ([place]) XR PELVIS 1 OR 2 VIEWSon XR [...] By: Alyson Becker MD Preliminary Report By: Aylson Becker MD Electronically Signed By: Alyson Becker MD Dictated Date: 06/03/2019 3:56:17 PM Prelim Date: 06/03/2019 3:56:17 PM Sign Date: 06/03/2019 3:58:51 PM Normal [facility] ([place]R WRIST TWO VIEWS RIGHTon 0 06-03-2019 [...] PM Sign Date: 06/03/2019 3:56:05 PM Normal [facility] ([place] C-REACTIVE PROTEIN ([id number])Or dered By: Executive Chairman on 10-15-2017 CRP mass conc 1.0 mg/L Normal 0.0-4.9 Comprehensi Internal Medicine Work Phone: Comment on above: PATIENT NOT FASTINGP ERFORMED BY: [id number] [facility]Critical [facility] [id number] CBC (AUTO) ([id number])Ordered By : Executive Chairman on 10-15-2017 Erythrocyte distribution width Ratio (RBC) 13.8 % Normal 12.3-15.4 [facility] Work Phone: Comment on above: PATIENT NOT FASTINGP ERFORMED BY: [id number] [facility]Christian HospitalPorteroCritical access hospital [id number] Hematocrit Volume Fraction (Bld) 40.2 % Normal 34.0-46.6 [facility] Work Phone: Comment on above: PATIENT NOT FASTINGP ERFORMED BY: [id number] [facility] [id number] Hemoglobin mass conc (Bld) 13.4 g/dL Normal 11.1-15.9 [facility] Work Phone: Comment on above: PATIENT NOT FASTINGP ERFORMED BY: CB [facility] Myodso9907 Rodriguez RoadDublin [place] [id number] MCH Entitic mass (RBC) 29.8 pg Normal 26.6-33.0 Co [facility] Internal Medicine Work Phone: Comment on above: PATIENT NOT FASTINGP ERFORMED BY: CB [facility] Ksbejc8114 Rodriguez RoadDublin [place] [id number] MCHC mass conc (RBC) 33.3 g/dL Normal 31.5-35.7 [facility] Internal Medicine Work Phone: Comment on above: PATIENT NOT FASTINGP ERFORMED BY: CB [facility] Dkmrzo1967 Rodriguez RoadDublin [place] [id number] MCV Entitic volume (RBC) 90 fL Normal 79-97 [facility] Internal Medicine Work Phone: Comment on above: PATIENT NOT FASTINGP ERFORMED BY: CB [facility] Tqzmnw2128 Rodriguez RoadDublin [place] [id number] Platelets #/vol (Bld) 211 {x10E3/uL} Normal 150-379 [facility] Internal Medicine Work Phone: Comment on above: PATIENT NOT FASTINGP ERFORMED BY: CB [facility] Leiuty2407 [address] RoadDublin [place] [id number] RBC #/vol (Bld) 4.49 {x10E6/uL} Normal 3.77-5.28 [facility] Internal Medicine Work Phone: Comment on above: PATIENT NOT FASTINGP ERFORMED BY: CB [facility] Uhbylk6912 [address] RoadDublin [place] [id number] WBC #/vol (Bld) 4.9 {x10E3/uL} Normal 3.4-10.8 [facility] Internal Medicine Work Phone: Comment on above: PATIENT NOT FASTINGP ERFORMED BY: CB [facility] Raqgmc0902 [address] RoadDublin [place] [id number] METABOLIC PANEL, COMPREHENSI VE ([id number])Ordered By: Executive Chairman on 10-15-2017 Albumin mass conc 3.9 g/dL Normal 3.5-4.8 Compreh ensive Internal Medicine Work Phone: Comment on above: PATIENT NOT FASTINGP ERFORMED BY: ORTIZ LabCoaustyn ChesterNlispi8592 Rodriguez [facility] [id number] Albumin/Globulin mass ratio 1.6 {ratio} Normal 1.2-2.2 [facility] Work Phone: Comment on above: PATIENT NOT FASTINGP ERFORMED BY: ORTIZ [facility] Djlnww2903 [address] [facility] [id number] ALP enzyme act/vol 78 [iU]/L Normal 39-117 Compre [facility] Internal Medicine Work Phone: Comment on above: PATIENT NOT FASTINGP ERFORMED BY: ORTIZ Lab[facility] Hxqczy7987 [facility] [id number] ALT enzyme act/vol 18 [iU]/L Normal 0-32 Compre [facility] Internal Medicine Work Phone: Comment on above: PATIENT NOT FASTINGP ERFORMED BY: ORTIZ [facility] Fbmfch8355 [facility] [id number] AST enzyme act/vol 25 [iU]/L Normal 0-40 [facility] Internal Medicine Work Phone: Comment on above: PATIENT NOT FASTINGP ERFORMED BY: ORTIZ RobledoCo Jwdmui6030 [facility] [id number] Bilirubin mass conc 0.4 mg/dL Normal 0.0-1.2 Compr [facility] Internal Medicine Work Phone: Comment on above: PATIENT NOT FASTINGP ERFORMED BY: ORTIZ [facility] Rlnuym3083 [facility] [id number] Calcium mass conc 9.5 mg/dL Normal 8.7-10.3 Compreh [facility] servicesive Internal Medicine Work Phone: Comment on above: PATIENT NOT FASTINGP ERFORMED BY: ORTIZ [facility] Ejxpxv9725 [facility] [id number] Chloride molar conc 102 mmol/L Normal 96-106 Compr ensive Internal Medicine Work Phone: Comment on above: PATIENT NOT FASTINGP ERFORMED BY: Lab[facility] Cwnxxk1252 Rodriguez [facility]in [place] [id number] CO2 molar conc 27 mmol/L Normal 18-29 Comprehens trupti Internal Medicine Work Phone: Comment on above: PATIENT NOT FASTINGP ERFORMED BY: ORTIZ [facility] Ckfinp8510 [address] [facility] [id number] Creatinine mass conc 0.88 mg/dL Normal 0.57-1.00 Comp rehensive Internal Medicine Work Phone: Comment on above: PATIENT NOT FASTINGP ERFORMED BY: LabCo Ewywlq9612 [facility] [id number] GFR/1.73 sq M predicted among blacks CKD-EPI vol rate/area (S/P/Bld) 73 mL/min/1.73 Normal [facility] Work Phone: Comment on above: PATIENT NOT FASTINGP ERFORMED BY: LabCore[facility]6370 [facility] [id number] GFR/1.73 sq M predicted among non-blacks CKD-EPI vol rate/area (S/P/Bld) 63 mL/min/1.73 Normal Comprehensiv e Internal Medicine Work Phone: Comment on above: PATIENT NOT FASTINGP ERFORMED BY: Lab[facility] Olmtgx9360 [facility] [id number] Globulin mass conc (S) 2.4 g/dL Normal 1.5-4.5 Co mprehensive Internal Medicine Work Phone: Comment on above: PATIENT NOT FASTINGP ERFORMED BY: Lab[facility] Xjqpyh7024 [facility] [place] [id number] Glucose mass conc 87 mg/dL Normal 65-99 Compreh ensive Internal Medicine Work Phone: Comment on above: PATIENT NOT FASTINGP ERFORMED BY: Lab[facility] Exvoyi3631 [facility] [id number] Potassium molar conc 4.8 mmol/L Normal 3.5-5.2 Comp rehensive Internal Medicine Work Phone: Comment on above: PATIENT NOT FASTINGP ERFORMED BY: ORTIZ LabCoaustyn CroweAqyomw9799 Rodriguez RoadDublin [place] [id number] Protein mass conc 6.3 g/dL Normal 6.0-8.5 Compreh ensive Internal Medicine Work Phone: Comment on above: PATIENT NOT FASTINGP ERFORMED BY: ORTIZ [facility] Cdmmgt8305 [address] RoadDublin [place] [id number] Sodium molar conc 143 mmol/L Normal 134-144 Compreh ensive Internal Medicine Work Phone: Comment on above: PATIENT NOT FASTINGP ERFORMED BY: ORTIZ LabCoaustyn CroweZqcvss0197 [address] RoadDublin [place] [id number] Urea nitrogen mass conc 10 mg/dL Normal 8- [facility] Work Phone: Comment on above: PATIENT NOT FASTINGP ERFORMED BY: ORTIZ LabCoaustyn CroweSfylqo6239 Rodriguez RoadDuin [place] [id number] Urea nitrogen/Creatinine mass ratio 11 mg/mg Abnormal 12- [facility] Work Phone: Comment on above: PATIENT NOT FASTINGP ERFORMED BY: ORTIZ LabCoaustyn CroweFqxrpj1473 Rodriguez [facility]in [place] [id number] SED RATE ERYTHROCYTE ([id number]) Ordered By: Executive Chairman on 10-15-2017 ESR Velocity (Bld) 2 mm/h Normal 0-40 Compre hensive Internal Medicine Work Phone: Comment on above: PATIENT NOT FASTINGP ERFORMED BY: ORTIZ [facility] Fwefkd8218 Rodriguez [facility]in [place] [id number] CBC W/AUTO DIFF WBC ([id number])O rdered By: Executive Chairman on 09-01-2017 Basophils #/vol (Bld) 0.0 {x10E3/uL} Normal 0.0-0.2 [facility] Work Phone: Comment on above: PATIENT WAS FASTINGP ERFORMED BY: ORTIZ [facility] Byqfgj5203 [address] RoadDublin [place] [id number] Basophils/100 WBC (Bld) 0 % Normal [facility] Work Phone: Comment on above: PATIENT WAS FASTINGP ERFORMED BY: ORTIZ [facility] Efqzoz1284 [address] RoadDublin [place] [id number] Eosinophils #/vol (Bld) 0.1 {x10E3/uL} Normal 0.0-0.4 [facility] Work Phone: Comment on above: PATIENT WAS FASTINGP ERFORMED BY: ORTIZ [facility] Hebhnz7132 [address] RoadDublin [place] [id number] Eosinophils/100 WBC (Bld) 1 % Normal [facility] Work Phone: Comment on above: PATIENT WAS FASTINGP ERFORMED BY: ORTIZ [facility] Bortua9608 [address] RoadDublin [place] [id number] Erythrocyte distribution width Ratio (RBC) 13.8 % Normal 12.3-15.4 [facility] Work Phone: Comment on above: PATIENT WAS FASTINGP ERFORMED BY: ORTIZ [facility] Szxlmy4672 [address] RoadDublin [place] [id number] Hematocrit Volume Fraction (Bld) 40.2 % Normal 34.0-46.6 [facility] Work Phone: Comment on above: PATIENT WAS FASTINGP ERFORMED BY: ORTIZ [facility] Ljtvha6273 [address] RoadDublin [place] [id number] Hemoglobin mass conc (Bld) 13.2 g/dL Normal 11.1-15.9 [facility] Work Phone: Comment on above: PATIENT WAS FASTINGP ERFORMED BY: [facility] Lbdyrr8414 Rodriguez RoadDublin [place] [id number] Immature granulocytes #/vol (Bld) 0.0 {x10E3/uL} Normal 0.0-0.1 [facility] Work Phone: Comment on above: PATIENT WAS FASTINGP ERFORMED BY: [facility] Pbrrwb6112 [address] RoadDublin [place] [id number] Immature granulocytes/100 WBC (Bld) 0 % Normal [facility] Work Phone: Comment on above: PATIENT WAS FASTINGP ERFORMED BY: ORTIZ [facility] Bvsoam4079 [address] RoadDublin [place] [id number] Lymphocytes #/vol (Bld) 1.3 {x10E3/uL} Normal 0.7-3.1 [facility] Work Phone: Comment on above: PATIENT WAS FASTINGP ERFORMED BY: ORTIZ [facility] Djupwe0143 [address] [facility] [id number] Lymphocytes/100 WBC (Bld) 29 % Normal [facility] Work Phone: Comment on above: PATIENT WAS FASTINGP ERFORMED BY: [facility] Fixgce4122 [address] [facility] [id number] MCH Entitic mass (RBC) 29.5 pg Normal 26.6-33.0 [facility] Internal Medicine Work Phone: Comment on above: PATIENT WAS FASTINGP ERFORMED BY: ORTIZ Lab[facility] Nornzk5194 [facility] [id number] MCHC mass conc (RBC) 32.8 g/dL Normal 31.5-35.7 [facility] Internal Medicine Work Phone: Comment on above: PATIENT WAS FASTINGP ERFORMED BY: ORTIZ [facility] Elwihr0434 [facility] [id number] MCV Entitic volume (RBC) 90 fL Normal 79-97 [facility] Work Phone: Comment on above: PATIENT WAS FASTINGP ERFORMED BY: [facility] Oswwzo9522 [facility] [id number] Monocytes #/vol (Bld) 0.4 {x10E3/uL} Normal 0.1-0.9 [facility] Work Phone: Comment on above: PATIENT WAS FASTINGP ERFORMED BY: [facility] Engqtd9051 [address] [facility] [id number] Monocytes/100 WBC (Bld) 9 % Normal [facility] Work Phone: Comment on above: PATIENT WAS FASTINGP ERFORMED BY: [facility] Tssvzw6623 [address] [facility] [id number] Neutrophils #/vol (Bld) 2.7 {x10E3/uL} Normal 1.4-7.0 [facility] Work Phone: Comment on above: PATIENT WAS FASTINGP ERFORMED BY: ORTIZ LabCoaustyn Piades5978 Rodriguez RoadDublin [place] [id number] Neutrophils/100 WBC (Bld) 61 % Normal [facility] Work Phone: Comment on above: PATIENT WAS FASTINGP ERFORMED BY: ORTIZ [facility] Tmmqna0058 [address] RoadDublin [place] [id number] Platelets #/vol (Bld) 198 {x10E3/uL} Normal 150-379 [facility] Work Phone: Comment on above: PATIENT WAS FASTINGP ERFORMED BY: ORTIZ [facility] Rupqfv3410 [address] RoadDublin [place] [id number] RBC #/vol (Bld) 4.47 {x10E6/uL} Normal 3.77-5.28 [facility] Internal Medicine Work Phone: Comment on above: PATIENT WAS FASTINGP ERFORMED BY: ORTIZ [facility] Ufllmq6454 [address] RoadDublin [place] [id number] WBC #/vol (Bld) 4.5 {x10E3/uL} Normal 3.4-10.8 [facility] Internal Medicine Work Phone: Comment on above: PATIENT WAS FASTINGP ERFORMED BY: ORTIZ [facility] Sulhdp5403 [address] [facility]blin [place] [id number] LIPID PANEL ([id number])Ordered B y: Executive Chairman on 09-01-2017 Cholesterol in HDL mass conc 59 mg/dL Normal [facility] Work Phone: Comment on above: PATIENT WAS FASTINGP ERFORMED BY: ORTIZ [facility] Rvfpxz5515 [address] RoadDublin [place] [id number] Cholesterol in LDL mass conc 72 mg/dL Normal 0-99 [facility] Work Phone: Comment on above: PATIENT WAS FASTINGP ERFORMED BY: ORTIZ [facility] Tpoyyx6729 [address] RoadDublin [place] [id number] Cholesterol in LDL/Cholesterol in HDL mass ratio 1.2 {ratio_units} Normal 0.0-3.2 [facility] Work Phone: Comment on above: LDL/HDL Ratio Men Wo men 1/2 Avg.Risk 1.0 1.5 Avg.Risk 3.6 3.2 2X Avg.Risk 6.2 5.0 3X Avg.Risk 8.0 6.1 PATIENT WAS FASTINGP ERFORMED BY: ORTIZ [facility] Qdltnk4351 [address] RoadDublin [place] [id number] Cholesterol in VLDL mass conc 18 mg/dL Normal 5-40 [facility] Work Phone: Comment on above: PATIENT WAS FASTINGP ERFORMED BY: ORTIZ LabCoaustyn Vwgmbp5449 [address] RoadDublin [place] [id number] Cholesterol mass conc 149 mg/dL Normal 100-199 Com prehensive Internal Medicine Work Phone: Comment on above: PATIENT WAS FASTINGP ERFORMED BY: ORTIZ LabCoaustyn Sbivjg0521 [address] RoadDublin [place] [id number] Triglyceride mass conc 92 mg/dL Normal 0-149 Co [facility] centerensive Internal Medicine Work Phone: Comment on above: PATIENT WAS FASTINGP ERFORMED BY: ORTIZ LabCoaustyn Hfdwgn3281 [address] RoadDublin [place] [id number] METABOLIC PANEL, COMPREHENSI VE ([id number])Ordered By: Executive Chairman on 09-01-2017 Albumin mass conc 4.3 g/dL Normal 3.5-4.8 Compreh [facility] Internal Medicine Work Phone: Comment on above: PATIENT WAS FASTINGP ERFORMED BY: ORTIZ [facility] Osxzfk1787 Rodriguez RoadDublin [place] [id number] Albumin/Globulin mass ratio 2.0 {ratio} Normal 1.2-2.2 [facility] Work Phone: Comment on above: PATIENT WAS FASTINGP ERFORMED BY: ORTIZ [facility] Pmhfvw7383 [address] RoadDublin [place] [id number] ALP enzyme act/vol 71 [iU]/L Normal 39-117 Compre [facility] Internal Medicine Work Phone: Comment on above: PATIENT WAS FASTINGP ERFORMED BY: ORTIZ [facility] Pemwyq5181 [address] RoadDublin [place] [id number] ALT enzyme act/vol 11 [iU]/L Normal 0-32 [facility] Internal Medicine Work Phone: Comment on above: PATIENT WAS FASTINGP ERFORMED BY: CB [facility] Sjxfww1900 [address] RoadDublin [place] [id number] AST enzyme act/vol 16 [iU]/L Normal 0-40 [facility] Internal Medicine Work Phone: Comment on above: PATIENT WAS FASTINGP ERFORMED BY: CB [facility] Wcxbaq2186 [address] RoadDublin [place] [id number] Bilirubin mass conc 0.4 mg/dL Normal 0.0-1.2 [facility] Internal [facility] Work Phone: Comment on above: PATIENT WAS FASTINGP ERFORMED BY: Lab[facility] Jhzyen8314 [address] RoadDublin [place] [id number] Calcium mass conc 9.5 mg/dL Normal 8.7-10.3 Compreh [facility]ive Internal Medicine Work Phone: Comment on above: PATIENT WAS FASTINGP ERFORMED BY: [facility] Lqoyia0133 [address] RoadDublin [place] [id number] Chloride molar conc 102 mmol/L Normal 96-106 [facility] Internal Medicine Work Phone: Comment on above: PATIENT WAS FASTINGP ERFORMED BY: [facility] Nyqfgs8572 [address] Roadblin [place] [id number] CO2 molar conc 27 mmol/L Normal 18-29 [facility]pre[facility]in[facility] Internal Medicine Work Phone: Comment on above: PATIENT WAS FASTINGP ERFORMED BY: CB [facility] Ttadxl1080 [address] RoadDublin [place] [id number] Creatinine mass conc 0.84 mg/dL Normal 0.57-1.[address] [facility] Internal Medicine Work Phone: Comment on above: PATIENT WAS FASTINGP ERFORMED BY: CB [facility] Iqfeug4251 [address] RoadDublin [place] [id number] GFR/1.73 sq M predicted among blacks CKD-EPI vol rate/area (S/P/Bld) 77 mL/min/1.73 Normal [facility] Work Phone: Comment on above: PATIENT WAS FASTINGP ERFORMED BY: ORTIZ [facility] Lnkcba3769 [address] RoadDublin [place] [id number] GFR/1.73 sq M predicted among non-blacks CKD-EPI vol rate/area (S/P/Bld) 67 mL/min/1.73 Normal Comprehensiv e Internal Medicine Work Phone: Comment on above: PATIENT WAS FASTINGP ERFORMED BY: CB [facility] Oecnja6237 [address] RoadDublin [place] [id number] Globulin mass conc (S) 2.2 g/dL Normal 1.5-4.5 Co mprehensive Internal Medicine Work Phone: Comment on above: PATIENT WAS FASTINGP ERFORMED BY: ORTIZ [facility] Utpkoc2774 [address] RoadDublin [place] [id number] Glucose mass conc 88 mg/dL Normal 65-99 Compreh ensive Internal Medicine Work Phone: Comment on above: PATIENT WAS FASTINGP ERFORMED BY: ORTIZ [facility] Chnvnb8421 [address] RoadDublin [place] [id number] Potassium molar conc 4.3 mmol/L Normal 3.5-5.2 Comp rehensive Internal Medicine Work Phone: Comment on above: PATIENT WAS FASTINGP ERFORMED BY: [facility] Jwpgkh1064 [address] RoadDublin [place] [id number] Protein mass conc 6.5 g/dL Normal 6.0-8.5 Compreh ensive Internal Medicine Work Phone: Comment on above: PATIENT WAS FASTINGP ERFORMED BY: CB [facility] Wabhdf6490 [address] RoadDublin [place] [id number] Sodium molar conc 143 mmol/L Normal 134-144 Compreh ensive Internal Medicine Work Phone: Comment on above: PATIENT WAS FASTINGP ERFORMED BY: CB [facility] Tqyvwn2791 [address] RoadDublin [place] [id number] Urea nitrogen mass conc 13 mg/dL Normal 8-27 [facility] Work Phone: Comment on above: PATIENT WAS FASTINGP ERFORMED BY: CB [facility] Lajbkb7619 [address] RoadDublin [place] [id number] Urea nitrogen/Creatinine mass ratio 15 mg/mg Normal 12- [facility] Work Phone: Comment on above: PATIENT WAS FASTINGP ERFORMED BY: CB [facility] Ipwytg2044 [address] RoadDublin [place] [id number] TSH ([id number])Ordered By: [employer] m Media Production Manager on 09-01-2017 Thyrotropin Qn 2.410 {uIU/mL} Normal 0.450-4.50 0 [facility] Work Phone: Comment on above: PATIENT WAS FASTINGP ERFORMED BY: CB [facility] Nqkqwx9324 [address] RoadDublin [place] [id number] VITAMIN B-12 (CYANOCOBALAMIN ) ([id number])Ordered By: Executive Chairman on 09-01-2017 Cobalamin (Vitamin B12) mass conc 311 pg/mL Normal 232-1245 [facility] Work Phone: Comment on above: Please note refere nce interval change PATIENT WAS FASTINGP ERFORMED BY: CB [facility] Chorrv8568 [address] RoadDublin [place] [id number] Vitamin D Hydroxy (09561)Ord ered By: Executive Chairman on 09-01-2017 25-Hydroxyvitamin D2+25-Hydroxyvitamin D3 mass conc 33.4 ng/mL Normal 30.0-100.0 [facility] Work Phone: Comment on above: Vitamin D deficiency has been defined by the Tow ofMedicine and an Endocrine Society practice guideline as alevel of serum 25-OH vitamin D less than 20 ng/mL (1,2).The Endocrine Society went on to further define vitamin Dinsufficiency as a level between 21 and 29 ng/mL (2).1. IOM (Tow of Medicine). 2010. Dietary reference intakes for calcium and D. [place]: The National Academies Press.2. Allie MF, Emile NC, Natalie POOLE, et al. Evaluation, treatment, and prevention of vitamin D deficiency: an Endocrine Society clinical practice guideline. JCEM. 2010; 96(7):1911-30. PATIENT WAS FASTINGP ERFORMED BY: [id number] CartRescuerblin [place] [id number] Office Visiton 06-05-2017 Dietary management education, guidance, and counseling (procedure) yes Invalid Interpretation Code [facility] Work Phone: Documentation of current medications (procedure) Done Invalid Interpretation Code [facility] Work Phone: Fall risk assessment No Invalid Interpretation Code [facility] Work Phone: Tobacco use CPHS Never smoker Invalid Interpretation Code [facility] Work Phone: CALCIFIDIOL (69062) VIT D 25 Ordered By: Executive Chairman on 12-16-2016 25-Hydroxyvitamin D2+25-Hydroxyvitamin D3 mass conc 37.5 ng/mL Normal 30.0-100.0 [facility] Work Phone: Comment on above: Vitamin D deficiency has been defined by the Tow ofMedicine and an Endocrine Society practice guideline as alevel of serum 25-OH vitamin D less than 20 ng/mL (1,2).The Endocrine Society went on to further define vitamin Dinsufficiency as a level between 21 and 29 ng/mL (2).1. IOM (Tow of Medicine). 2010. Dietary reference intakes for calcium and D. [place]: The National Academies Press.2. Allie MF, Emile [place], Natalie POOLE, et al. Evaluation, treatment, and prevention of vitamin D deficiency: an Endocrine Society clinical practice guideline. JCEM. 2010; 96(7):1911-30. PATIENT WAS FASTINGP ERFORMED BY: [employer] Vkpyza5243 CartRescuerblin [place] [id number] HEPATIC FUNCTION PANEL (8007 6)Ordered By: Executive Chairman on 12-16-2016 Albumin mass conc 4.3 g/dL Normal 3.5-4.8 Compreh ensive Internal Medicine Work Phone: Comment on above: PATIENT WAS FASTINGP ERFORMED BY: [employer] Txunxi7660 [address] [employer]mbu[employer], Tu Tienda OnlineDublin [place] [id number] ALP enzyme act/vol 72 [iU]/L Normal 39-117 [facility] Internal Medicine Work Phone: Comment on above: PATIENT WAS FASTINGP ERFORMED BY: ORTIZ [facility] Itglnd0815 [address] RoadDublin [place] [id number] ALT enzyme act/vol 15 [iU]/L Normal 0-32 [facility] Internal Medicine Work Phone: Comment on above: PATIENT WAS FASTINGP ERFORMED BY: CB [facility] Wqzjnq5107 [address] RoadDublin [place] [id number] AST enzyme act/vol 18 [iU]/L Normal 0-40 [facility] Internal Medicine Work Phone: Comment on above: PATIENT WAS FASTINGP ERFORMED BY: ORTIZ [facility] Xxblwz4813 [address] RoadDublin [place] [id number] Bilirubin mass conc 0.5 mg/dL Normal 0.0-1.2 [facility] Internal Medicine Work Phone: Comment on above: PATIENT WAS FASTINGP ERFORMED BY: ORTIZ [facility] Bopxtn8790 Rodriguez RoadAtrium Health University Cityin [place] [id number] Bilirubin.direct mass conc 0.16 mg/dL Normal 0.00-0.40 [facility] Work Phone: Comment on above: PATIENT WAS FASTINGP ERFORMED BY: ORTIZ [facility] Jeaxzo8213 Rodriguez RoadAtrium Health University Cityin [place] [id number] Protein mass conc 6.7 g/dL Normal 6.0-8.5 [facility] Internal Medicine Work Phone: Comment on above: PATIENT WAS FASTINGP ERFORMED BY: [facility] Tfcrea5019 Rodriguez RoadAtrium Health University Cityin [place] [id number] LIPID PANEL ([id number])Ordered B y: Executive Chairman on 12-16-2016 Cholesterol in HDL mass conc 56 mg/dL Normal [facility] Work Phone: Comment on above: PATIENT WAS FASTINGP ERFORMED BY: ORTIZ [facility] Ajjbom6604 Rodriguez RoadDublin [place] [id number] Information: [id number], [id number] Cholesterol in LDL mass conc 44 mg/dL Normal 0-99 [facility] Work Phone: Comment on above: PATIENT WAS FASTINGP ERFORMED BY: ORTIZ [facility] Cqtuno5316 [facility] [id number] Information: [id number], [id number] Cholesterol in LDL/Cholesterol in HDL mass ratio 0.8 {ratio_units} Normal 0.0-3.2 [facility] Work Phone: Comment on above: LDL/HDL Ratio Men Wo men 1/2 Avg.Risk 1.0 1.5 Avg.Risk 3.6 3.2 2X Avg.Risk 6.2 5.0 3X Avg.Risk 8.0 6.1 PATIENT WAS FASTINGP ERFORMED BY: ORTIZ [facility] Nhvasm3914 [facility] [id number] Information: [id number], [id number] Cholesterol in VLDL mass conc 27 mg/dL Normal 5-40 [facility] Work Phone: Comment on above: PATIENT WAS FASTINGP ERFORMED BY: ORTIZ [facility] Bukrwh6655 [facility] [id number] Information: [id number], [id number] Cholesterol mass conc 127 mg/dL Normal 100-199 Com prehensive Internal Medicine Work Phone: Comment on above: PATIENT WAS FASTINGP ERFORMED BY: ORTIZ [facility] Jrbbtc8365 [facility] [id number] Information: [id number], [id number] Triglyceride mass conc 135 mg/dL Normal 0-149 [facility]eren[facility] Work Phone: Comment on above: PATIENT WAS FASTINGP ERFORMED BY: [facility] Iegwxf7941 [facility] [id number] Information: [id number], [id number] Clinical Lists Update: Prelo nurse healthcare manager 10-31-2016 Left ventricular Ejection fraction 70 % Invalid Interpretation Code [facility] Work Phone: Lipid Panel (17669)Ordered B y: Executive Chairman on 09-16-2016 Cholesterol in HDL mass conc 44 mg/dL Normal [facility] Work Phone: Comment on above: PATIENT WAS FASTINGP ERFORMED BY: ORTIZ LabAleksandr CroweYqbclp2604 [address] RoadDublin [place] [id number] Cholesterol in LDL mass conc 161 mg/dL Abnormal 0-99 [facility] Work Phone: Comment on above: PATIENT WAS FASTINGP ERFORMED BY: ORTIZ Crowelin[address] RoadDublin [place] [id number] Cholesterol in LDL/Cholesterol in HDL mass ratio 3.7 {ratio_units} Abnormal 0.0-3.2 [facility] Work Phone: Comment on above: LDL/HDL Ratio Men Wo men 1/2 Avg.Risk 1.0 1.5 Avg.Risk 3.6 3.2 2X Avg.Risk 6.2 5.0 3X Avg.Risk 8.0 6.1 PATIENT WAS FASTINGP ERFORMED BY: ORTIZ Crowelin6[address] RoadDublin [place] [id number] Cholesterol in VLDL mass conc 28 mg/dL Normal 5-40 [facility] Work Phone: Comment on above: PATIENT WAS FASTINGP ERFORMED BY: ORTIZ Crowelin6[address] RoadDublin [place] [id number] Cholesterol mass conc 233 mg/dL Abnormal 100-199 Com prehensive Internal Medicine Work Phone: Comment on above: PATIENT WAS FASTINGP ERFORMED BY: ORTIZ Crowelin6[address] RoadDublin [place] [id number] Triglyceride mass conc 139 mg/dL Normal 0-149 [facility] Work Phone: Comment on above: PATIENT WAS FASTINGP ERFORMED BY: ORTIZ LabAleksandr CroweLnjdft1525 Rodriguez RoadDublin [place] [id number] VITAMIN B-12 (CYANOCOBALAMIN ) ([id number])Ordered By: Executive Chairman on 09-16-2016 Cobalamin (Vitamin B12) mass conc 788 pg/mL Normal 211-946 [facility] Work Phone: Comment on above: PATIENT WAS FASTINGP ERFORMED BY: ORTIZ LabCoaustyn Kyzvll1573 [address] RoadDublin [place] [id number] CALCIFIDIOL (04842) VIT D 25 Ordered By: Executive Chairman on 07-01-2016 25-Hydroxyvitamin D2+25-Hydroxyvitamin D3 mass conc 34.8 ng/mL Normal 30.0-100.0 [facility] Work Phone: Comment on above: Vitamin D deficiency has been defined by the Tow ofMedicine and an Endocrine Society practice guideline as alevel of serum 25-OH vitamin D less than 20 ng/mL (1,2).The Endocrine Society went on to further define vitamin Dinsufficiency as a level between 21 and 29 ng/mL (2).1. IOM (Tow of Medicine). 2010. Dietary reference intakes for calcium and D. [place]: The National Academies Press.2. Allie MF, Emile PONCE, Natalie POOLE, et al. Evaluation, treatment, and prevention of vitamin D deficiency: an Endocrine Society clinical practice guideline. JCEM. 2010; 96(7):1911-30. PATIENT WAS FASTINGP ERFORMED BY: Moneyspyder70 [employer] [id number] CBC W/AUTO DIFF WBC (70333)O rdered By: Executive Chairman on 07-01-2016 Basophils #/vol (Bld) 0.0 {x10E3/uL} Normal 0.0-0.2 [facility] Work Phone: Comment on above: PATIENT WAS FASTINGP ERFORMED BY: Pow[employer]in [place] [id number] Basophils/100 WBC (Bld) 0 % Normal [facility] Work Phone: Comment on above: PATIENT WAS FASTINGP ERFORMED BY: P2i6370 [employer] [id number] Eosinophils #/vol (Bld) 0.1 {x10E3/uL} Normal 0.0-0.4 [facility] Work Phone: Comment on above: PATIENT WAS FASTINGP ERFORMED BY: [place]ain [place] [id number] Eosinophils/100 WBC (Bld) 2 % Normal [facility] Work Phone: Comment on above: PATIENT WAS FASTINGP ERFORMED BY: ORTIZ [facility]6370 [facility] [id number] Erythrocyte distribution width Ratio (RBC) 14.0 % Normal 12.3-15.4 [facility] Work Phone: Comment on above: PATIENT WAS FASTINGP ERFORMED BY: ORTIZ [facility] Ccsmjt5442 [facility] [id number] Hematocrit Volume Fraction (Bld) 42.4 % Normal 34.0-46.6 [facility] Work Phone: Comment on above: PATIENT WAS FASTINGP ERFORMED BY: ORTIZ [facility] Eqzwyf4649 [facility] [id number] Hemoglobin mass conc (Bld) 14.1 g/dL Normal 11.1-15.9 [facility] Work Phone: Comment on above: PATIENT WAS FASTINGP ERFORMED BY: ORTIZ [facility] Rbiowv4420 [facility] [id number] Immature granulocytes #/vol (Bld) 0.0 {x10E3/uL} Normal 0.0-0.1 [facility] Work Phone: Comment on above: PATIENT WAS FASTINGP ERFORMED BY: ORTIZ [place] 6203470 [facility] [id number] Immature granulocytes/100 WBC (Bld) 0 % Normal [facility] Work Phone: Comment on above: PATIENT WAS FASTINGP ERFORMED BY: ORTIZ [facility]6370 [facility] [id number] Lymphocytes #/vol (Bld) 1.8 {x10E3/uL} Normal 0.7-3.1 [facility] Work Phone: Comment on above: PATIENT WAS FASTINGP ERFORMED BY: ORTIZ [place] 6203470 [facility] [id number] Lymphocytes/100 WBC (Bld) 31 % Normal [facility] Work Phone: Comment on above: PATIENT WAS FASTINGP ERFORMED BY: ORTIZ Chester[address] [facility] [place] [id number] MCH Entitic mass (RBC) 29.7 pg Normal 26.6-33.0 [facility] Internal Medicine Work Phone: Comment on above: PATIENT WAS FASTINGP ERFORMED BY: ORTIZ Chester[address] RoadAtrium Health University Cityin [place] [id number] MCHC mass conc (RBC) 33.3 g/dL Normal 31.5-35.7 [facility] Internal Medicine Work Phone: Comment on above: PATIENT WAS FASTINGP ERFORMED BY: ORTIZ Crowelin[address] [facility]in [place] [id number] MCV Entitic volume (RBC) 89 fL Normal 79-97 [facility] Work Phone: Comment on above: PATIENT WAS FASTINGP ERFORMED BY: ORTIZ Cehster6370 [facility] [id number] Monocytes #/vol (Bld) 0.4 {x10E3/uL} Normal 0.1-0.9 [facility] Work Phone: Comment on above: PATIENT WAS FASTINGP ERFORMED BY: ORTIZ Chester[address] [facility] [id number] Monocytes/100 WBC (Bld) 6 % Normal [facility] Work Phone: Comment on above: PATIENT WAS FASTINGP ERFORMED BY: ORTIZ Crowelin[address] [facility] [id number] Neutrophils #/vol (Bld) 3.7 {x10E3/uL} Normal 1.4-7.0 [facility] Work Phone: Comment on above: PATIENT WAS FASTINGP ERFORMED BY: ORTIZ LabAleksandr CroweUjvgnr5745 [address] [facility] [id number] Neutrophils/100 WBC (Bld) 61 % Normal [facility] Work Phone: Comment on above: PATIENT WAS FASTINGP ERFORMED BY: ORTIZ Crowelin[address] [facility]in [place] [id number] Platelets #/vol (Bld) 221 {x10E3/uL} Normal 150-379 [facility] Work Phone: Comment on above: PATIENT WAS FASTINGP ERFORMED BY: ORTIZ Hou Yqrjtw8647 [facility] [id number] RBC #/vol (Bld) 4.75 {x10E6/uL} Normal 3.77-5.28 Comp [facility]erensive [facility] Work Phone: Comment on above: PATIENT WAS FASTINGP ERFORMED BY: ORTIZ [facility] Shwvzl0881 [facility] [id number] WBC #/vol (Bld) 6.0 {x10E3/uL} Normal 3.4-10.8 [facility] Internal Medicine Work Phone: Comment on above: PATIENT WAS FASTINGP ERFORMED BY: ORTIZ Ameya Xiawfw2341 [facility] [id number] LIPID PANEL ([id number])Ordered B y: Executive Chairman on 07-01-2016 Cholesterol in HDL mass conc 41 mg/dL Normal [facility] Work Phone: Comment on above: According to ATP-III Guidelines, HDL-C >59 mg/dL is considered anegative risk factor for CHD. PATIENT WAS FASTINGP ERFORMED BY: ORTIZ Nilda Crowelin6370 [facility] [id number] Cholesterol in LDL mass conc 129 mg/dL Abnormal 0-99 [facility] Work Phone: Comment on above: PATIENT WAS FASTINGP ERFORMED BY: ORTIZ [place] 6203470 [facility] [id number] Cholesterol in LDL/Cholesterol in HDL mass ratio 3.1 {ratio_units} Normal 0.0-3.2 [facility] Work Phone: Comment on above: LDL/HDL Ratio Men Wo men 1/2 Avg.Risk 1.0 1.5 Avg.Risk 3.6 3.2 2X Avg.Risk 6.2 5.0 3X Avg.Risk 8.0 6.1 PATIENT WAS FASTINGP ERFORMED BY: [place] 6512270 [facility] [id number] Cholesterol in VLDL mass conc 45 mg/dL Abnormal 5-40 [facility] Work Phone: Comment on above: PATIENT WAS FASTINGP ERFORMED BY: ORTIZ LabAleksandr CroweCpfeww7248 [facility] [id number] Cholesterol mass conc 215 mg/dL Abnormal 100-199 Com prehensive [facility] Medicine Work Phone: Comment on above: PATIENT WAS FASTINGP ERFORMED BY: ORTIZ LabCoaustyn CroweObhbzz1676 [facility] [id number] Triglyceride mass conc 223 mg/dL Abnormal 0-149 Co [facility]erehens[facility] Work Phone: Comment on above: PATIENT WAS FASTINGP ERFORMED BY: ORTIZ LabAleksandr CroweHwuyec4274 [facility] [id number] METABOLIC PANEL, COMPREHENSI VE ([id number])Ordered By: Executive Chairman on 07-01-2016 Albumin mass conc 4.1 g/dL Normal 3.5-4.8 Compreh [facility] Internal Medicine Work Phone: Comment on above: PATIENT WAS FASTINGP ERFORMED BY: ORTIZ [facility] Qkfcvo0595 [facility] [id number] Albumin/Globulin mass ratio 1.6 {ratio} Normal 1.1-2.5 [facility] Internal Medicine Work Phone: Comment on above: PATIENT WAS FASTINGP ERFORMED BY: ORTIZ [facility] Ysnwwf3931 [facility] [id number] ALP enzyme act/vol 98 [iU]/L Normal 39-117 [facility] Work Phone: Comment on above: PATIENT WAS FASTINGP ERFORMED BY: ORTIZ [facility] Wdrhmg1070 [address] [facility] [id number] ALT enzyme act/vol 11 [iU]/L Normal 0-32 [facility] Internal Medicine Work Phone: Comment on above: PATIENT WAS FASTINGP ERFORMED BY: ORTIZ [facility] Ildmkj1135 [facility] [id number] AST enzyme act/vol 17 [iU]/L Normal 0-40 Compre [facility] Internal Medicine Work Phone: Comment on above: PATIENT WAS FASTINGP ERFORMED BY: ORTIZ [facility] Otyadc7770 [address] RoadDublin [place] [id number] Bilirubin mass conc 0.2 mg/dL Normal 0.0-1.2 Compr ensive Internal Medicine Work Phone: Comment on above: PATIENT WAS FASTINGP ERFORMED BY: CB [facility] Okbwfp1225 [address] RoadDublin [place] [id number] Calcium mass conc 9.8 mg/dL Normal 8.7-10.3 Compreh [facility] servicesive Internal [facility] Work Phone: Comment on above: PATIENT WAS FASTINGP ERFORMED BY: CB [facility] Nlydhi4976 Rodriguez Roadblin [place] [id number] Chloride molar conc 101 mmol/L Normal 97-106 Compr [facility] Internal Medicine Work Phone: Comment on above: Please note refere nce interval change PATIENT WAS FASTINGP ERFORMED BY: ORTIZ [facility] Pxswkp5790 [address] Roadblin [place] [id number] CO2 molar conc 27 mmol/L Normal 18-29 Comprehens trupti Internal Medicine Work Phone: Comment on above: PATIENT WAS FASTINGP ERFORMED BY: ORTIZ [facility] Rdtuhg5732 [address] [facility] [place] [id number] Creatinine mass conc 0.89 mg/dL Normal 0.57-1.[address] [facility] Internal Medicine Work Phone: Comment on above: PATIENT WAS FASTINGP ERFORMED BY: CB [facility] Wvquba8706 [address] RoadDublin [place] [id number] GFR/1.73 sq M predicted among blacks CKD-EPI vol rate/area (S/P/Bld) 72 mL/min/1.73 Normal [facility] Work Phone: Comment on above: PATIENT WAS FASTINGP ERFORMED BY: CB [facility] Tyowtb0865 [address] RoadDublin [place] [id number] GFR/1.73 sq M predicted among non-blacks CKD-EPI vol rate/area (S/P/Bld) 63 mL/min/1.73 Normal Comprehensiv e Internal Medicine Work Phone: Comment on above: PATIENT WAS FASTINGP ERFORMED BY: ORTIZ LabCoaustyn Sxwykz1229 [address] [facility]blin [place] [id number] Globulin mass conc (S) 2.5 g/dL Normal 1.5-4.5 Co mprehensive [facility] Medicine Work Phone: Comment on above: PATIENT WAS FASTINGP ERFORMED BY: CB [facility] Xbmpam4731 [address] [facility] [id number] Glucose mass conc 92 mg/dL Normal 65-99 Compreh ensive Internal Medicine Work Phone: Comment on above: PATIENT WAS FASTINGP ERFORMED BY: ORTIZ [facility] Ilmhmn7237 [address] [facility] [id number] Potassium molar conc 5.0 mmol/L Normal 3.5-5.2 Comp rehensive Internal Medicine Work Phone: Comment on above: Please note refere nce interval change PATIENT WAS FASTINGP ERFORMED BY: ORTIZ [facility] Vqlqgx3053 [address] [facility]in [place] [id number] Protein mass conc 6.6 g/dL Normal 6.0-8.5 Compreh ensive Internal Medicine Work Phone: Comment on above: PATIENT WAS FASTINGP ERFORMED BY: [facility] Jdwvaw0157 [address] [facility]in [place] [id number] Sodium molar conc 143 mmol/L Normal 136-144 Compreh ensive Internal Medicine Work Phone: Comment on above: Please note refere nce interval change PATIENT WAS FASTINGP ERFORMED BY: [facility] Dzxqlb3092 [address] [facility] Hospitalblin [place] [id number] Urea nitrogen mass conc 9 mg/dL Normal 8-27 [facility] Work Phone: Comment on above: PATIENT WAS FASTINGP ERFORMED BY: [facility] Mktpvm2251 [address] [facility] [place] [id number] Urea nitrogen/Creatinine mass ratio 10 mg/mg Abnormal 11-26 [facility] Work Phone: Comment on above: PATIENT WAS FASTINGP ERFORMED BY: ORTIZ [facility] Phfmsc1291 [address] RoadDublin [place] [id number] MICROALBUMINOrdered By: [employer] Media Production Manager on 07-01-2016 Albumin DL <= 20 mg/L mass conc (U) 5.9 ug/mL Normal [facility] Work Phone: Comment on above: PATIENT WAS FASTINGP ERFORMED BY: ORTIZ [facility] Jwievr6772 [address] RoadDublin [place] [id number] Albumin/Creatinine mass ratio (U) 4.3 {mg/g_creat} Normal 0.0-30.0 [facility] Work Phone: Comment on above: PATIENT WAS FASTINGP ERFORMED BY: ORTIZ [facility] Mitbmp9447 [address] RoadDublin [place] [id number] Creatinine mass conc (U) 138.1 mg/dL Normal [facility] Work Phone: Comment on above: PATIENT WAS FASTINGP ERFORMED BY: ORTIZ [facility] Mssvki9155 [address] RoadDublin [place] [id number] TSH ([id number])Ordered By: Samantha Media Production Manager on 07-01-2016 Thyrotropin Qn 3.470 {uIU/mL} Normal 0.450-4.50 0 [facility] Work Phone: Comment on above: PATIENT WAS FASTINGP ERFORMED BY: ORTIZ [facility] Zqgtkb3633 [address] RoadDublin [place] [id number] URINALYSIS, W/ MICRO ([id number]) Ordered By: Executive Chairman on 07-01-2016 Appearance Nom (U) Clear Normal Compre hensive Internal Medicine Work Phone: Comment on above: PATIENT WAS FASTINGP ERFORMED BY: ORTIZ [facility] Kwuqhx3597 [address] RoadDublin [place] [id number] Bilirubin Ql (U) Negative Normal Comprehe nsive Internal Medicine Work Phone: Comment on above: PATIENT WAS FASTINGP ERFORMED BY: ORTIZ [facility] Ttjenh2573 [address] RoadDublin [place] [id number] Color Nom (U) Yellow Normal Comprehensi ve Internal Medicine Work Phone: Comment on above: PATIENT WAS FASTINGP ERFORMED BY: ORTIZ Chester[address]Dublin [place] [id number] Glucose Ql (U) Negative Normal Comprehens trupti Internal Medicine Work Phone: Comment on above: PATIENT WAS FASTINGP ERFORMED BY: ORTIZ Chester[address]Dublin [place] [id number] Hemoglobin Ql (U) Negative Normal Compreh ensive Internal Medicine Work Phone: Comment on above: PATIENT WAS FASTINGP ERFORMED BY: ORTIZ Chester[address] [place] [id number] Ketones Ql (U) Negative Normal Comprehens trupti Internal Medicine Work Phone: Comment on above: PATIENT WAS FASTINGP ERFORMED BY: ORTIZ Chester[address] [place] [id number] Leukocyte esterase Test strip Ql (U) Negative Normal [facility] Work Phone: Comment on above: PATIENT WAS FASTINGP ERFORMED BY: ORTIZ Chester[address] [place] [id number] Microscopic observation LM Nom (Urine sed) MICRON Normal [facility] Work Phone: Comment on above: Microscopic follows if indicated. PATIENT WAS FASTINGP ERFORMED BY: ORTIZ Chester[address]Dublin [place] [id number] Microscopic observation LM Nom (Urine sed) See below: Normal [facility] Work Phone: Comment on above: Microscopic was derrick cated and was performed. PATIENT WAS FASTINGP ERFORMED BY: ORTIZ Crowelin6[address] RoadDublin [place] [id number] Nitrite Ql (U) Negative Normal Comprehens trupti Internal Medicine Work Phone: Comment on above: PATIENT WAS FASTINGP ERFORMED BY: ORTIZ Crowelin6[address]Dublin [place] [id number] pH (U) 5.5 [pH] Normal 5.0-7.5 [facility] Work Phone: Comment on above: PATIENT WAS FASTINGP ERFORMED BY: ORTIZ Chester[address] [employer], Tu Tienda Onlineblin [place] [id number] Protein Ql (U) Negative Normal Comprehens trupti Internal Medicine Work Phone: Comment on above: PATIENT WAS FASTINGP ERFORMED BY: ORTIZ Crowelin[address] [facility] [id number] Specific gravity Relative Density (U) 1.016 1 Normal 1.005-1.03 0 [facility] Work Phone: Comment on above: PATIENT WAS FASTINGP ERFORMED BY: ORTIZ Crowelin[address] [employer], Tu Ti[employer] Onlineblin [place] [id number] Urobilinogen Test strip mass conc (U) 0.2 mg/dL Normal 0.2-1.0 Comprehensiv e Internal Medicine Work Phone: Comment on above: PATIENT WAS FASTINGP ERFORMED BY: ORTIZ [facility] Uufhsz4080 [address] [facility] [place] [id number] VITAMIN B-12 (CYANOCOBALAMIN ) ([id number])Ordered By: Executive Chairman on 07-01-2016 Cobalamin (Vitamin B12) mass conc 861 pg/mL Normal 211-946 [facility] Work Phone: Comment on above: PATIENT WAS FASTINGP ERFORMED BY: ORTIZ [facility] Cfpcfw6867 [address] [facility]blin [place] [id number] CALCIFIDIOL (29928) VIT D 25 Ordered By: Executive Chairman on 12-05-2015 25-Hydroxyvitamin D2+25-Hydroxyvitamin D3 mass conc 40.5 ng/mL Normal 30.0-100.0 [facility] Work Phone: Comment on above: Vitamin D deficiency has been defined by the Tow ofMedicine and an Endocrine Society practice guideline as alevel of serum 25-OH vitamin D less than 20 ng/mL (1,2).The Endocrine Society went on to further define vitamin Dinsufficiency as a level between 21 and 29 ng/mL (2).1. IOM (Tow of Medicine). 2010. Dietary reference intakes for calcium and D. [place]: The National Academies Press.2. Allie MF, Emile NC, Natalie POOLE, et al. Evaluation, treatment, and prevention of vitamin D deficiency: an Endocrine Society clinical practice guideline. JCEM. 2010; 96(7):1911-30. PATIENT WAS FASTINGP ERFORMED BY: [facility] Xoxgqe1816 [address] RoadDublin [place] [id number] CBC W/AUTO DIFF WBC (94908)O rdered By: Executive Chairman on 12-05-2015 Basophils #/vol (Bld) 0.0 {x10E3/uL} Normal 0.0-0.2 [facility] Work Phone: Comment on above: PATIENT WAS FASTINGP ERFORMED BY: [facility] Dfvmdz0163 Rodriguez RoadDublin [place] [id number] Information: [id number] Basophils/100 WBC (Bld) 1 % Normal [facility] Work Phone: Comment on above: PATIENT WAS FASTINGP ERFORMED BY: [facility] Kcigsi6715 [address] RoadDublin [place] [id number] Information: [id number] Eosinophils #/vol (Bld) 0.2 {x10E3/uL} Normal 0.0-0.4 [facility] Work Phone: Comment on above: PATIENT WAS FASTINGP ERFORMED BY: [facility] Vvjlex5647 [address] Roadblin [place] [id number] Information: [id number] Eosinophils/100 WBC (Bld) 4 % Normal [facility] Work Phone: Comment on above: PATIENT WAS FASTINGP ERFORMED BY: [facility] Ffakcm8688 Rodriguez RoadDublin [place] [id number] Information: [id number] Erythrocyte distribution width Ratio (RBC) 13.7 % Normal 12.3-15.4 [facility] Work Phone: Comment on above: PATIENT WAS FASTINGP ERFORMED BY: [facility] Rirjpt0403 Rodriguez RoadDublin [place] [id number] Information: [id number] Hematocrit Volume Fraction (Bld) 40.2 % Normal 34.0-46.6 [facility] Work Phone: Comment on above: PATIENT WAS FASTINGP ERFORMED BY: [place] 6512270 [facility] [id number] Information: [id number] Hemoglobin mass conc (Bld) 13.6 g/dL Normal 11.1-15.9 [facility] Work Phone: Comment on above: PATIENT WAS FASTINGP ERFORMED BY: [address] [id number] Information: [id number] Immature granulocytes #/vol (Bld) 0.0 {x10E3/uL} Normal 0.0-0.1 [facility] Work Phone: Comment on above: PATIENT WAS FASTINGP ERFORMED BY: [place] 6512270 [facility] [id number] Information: [id number] Immature granulocytes/100 WBC (Bld) 0 % Normal [facility] Work Phone: Comment on above: PATIENT WAS FASTINGP ERFORMED BY: [address] [id number] Information: [id number] Lymphocytes #/vol (Bld) 1.2 {x10E3/uL} Normal 0.7-3.1 [facility] Work Phone: Comment on above: PATIENT WAS FASTINGP ERFORMED BY: [place] 6512270 [facility] [id number] Information: [id number] Lymphocytes/100 WBC (Bld) 26 % Normal [facility] Work Phone: Comment on above: PATIENT WAS FASTINGP ERFORMED BY: [address] [id number] Information: [id number] MCH Entitic mass (RBC) 30.0 pg Normal 26.6-33.0 [facility] Internal Medicine Work Phone: Comment on above: PATIENT WAS FASTINGP ERFORMED BY: [place] 6512270 [facility] [id number] Information: [id number] MCHC mass conc (RBC) 33.8 g/dL Normal 31.5-35.7 [facility] Internal Medicine Work Phone: Comment on above: PATIENT WAS FASTINGP ERFORMED BY: [place] [id number] [facility] [id number] Information: [id number] MCV Entitic volume (RBC) 89 fL Normal 79-97 [facility] Internal Medicine Work Phone: Comment on above: PATIENT WAS FASTINGP ERFORMED BY: [address] [id number] Information: [id number] Monocytes #/vol (Bld) 0.5 {x10E3/uL} Normal 0.1-0.9 [facility] Work Phone: Comment on above: PATIENT WAS FASTINGP ERFORMED BY: [address] [id number] Information: [id number] Monocytes/100 WBC (Bld) 10 % Normal [facility] Work Phone: Comment on above: PATIENT WAS FASTINGP ERFORMED BY: [address] [id number] Information: [id number] Neutrophils #/vol (Bld) 2.7 {x10E3/uL} Normal 1.4-7.0 [facility] Work Phone: Comment on above: PATIENT WAS FASTINGP ERFORMED BY: [place] [id number] [facility] [id number] Information: [id number] Neutrophils/100 WBC (Bld) 59 % Normal [facility] Work Phone: Comment on above: PATIENT WAS FASTINGP ERFORMED BY: ORTIZ Chester6370 [facility] [id number] Information: [id number] Platelets #/vol (Bld) 206 {x10E3/uL} Normal 150-379 [facility] Work Phone: Comment on above: PATIENT WAS FASTINGP ERFORMED BY: ORTIZ Hou Idjjns0287 [facility] [id number] Information: [id number] RBC #/vol (Bld) 4.54 {x10E6/uL} Normal 3.77-5.28 [facility] Internal Medicine Work Phone: Comment on above: PATIENT WAS FASTINGP ERFORMED BY: ORTIZ Ameya Byrowm7308 [facility] [id number] Information: [id number] WBC #/vol (Bld) 4.5 {x10E3/uL} Normal 3.4-10.8 [facility] Internal Medicine Work Phone: Comment on above: PATIENT WAS FASTINGP ERFORMED BY: ORTIZ Chester6370 [facility] [id number] Information: [id number] LIPID PANEL (05135)Ordered B y: Executive Chairman on 12-05-2015 Cholesterol in HDL mass conc 46 mg/dL Normal [facility] Work Phone: Comment on above: According to ATP-III Guidelines, HDL-C >59 mg/dL is considered anegative risk factor for CHD. PATIENT WAS FASTINGP ERFORMED BY: ORTIZ [facility]Three [facility] Mdctwc0930 [facility] [id number] Cholesterol in LDL mass conc 126 mg/dL Abnormal 0-99 [facility] Work Phone: Comment on above: PATIENT WAS FASTINGP ERFORMED BY: ORTIZ [facility]enaThree [facility] Zuqcvk3557 [facility] [id number] Cholesterol in LDL/Cholesterol in HDL mass ratio 2.7 {ratio_units} Normal 0.0-3.2 [facility] Work Phone: Comment on above: LDL/HDL Ratio Men Wo men 1/2 Avg.Risk 1.0 1.5 Avg.Risk 3.6 3.2 2X Avg.Risk 6.2 5.0 3X Avg.Risk 8.0 6.1 PATIENT WAS FASTINGP ERFORMED BY: ORTIZ LabCoaustyn Qqebbg1627 [address] [facility] [facility] [id number] Cholesterol in VLDL mass conc 31 mg/dL Normal 5-40 [facility] Work Phone: Comment on above: PATIENT WAS FASTINGP ERFORMED BY: ORTIZ LabCoaustyn CroweXyyhan0272 [address] [employer] [place] [id number] Cholesterol mass conc 203 mg/dL Abnormal 100-199 Com prehensive Internal Medicine Work Phone: Comment on above: PATIENT WAS FASTINGP ERFORMED BY: ORTIZ LabCoaustyn CroweMbiobe0763 [facility]Critical [facility] [id number] Triglyceride mass conc 156 mg/dL Abnormal 0-149 [facility] Internal [facility] Work Phone: Comment on above: PATIENT WAS FASTINGP ERFORMED BY: ORTIZ LabCoaustyn Kakqqd4473 [address] MEI PharmaCritical access hospital [id number] METABOLIC PANEL, COMPREHENSI VE ([id number])Ordered By: Executive Chairman on 12-05-2015 Albumin mass conc 4.2 g/dL Normal 3.5-4.8 Compreh ensive Internal Medicine Work Phone: Comment on above: PATIENT WAS FASTINGP ERFORMED BY: ORTIZ [facility] Xzfomu8040 [address] [facility] PharmaCritical access hospital [id number] Albumin/Globulin mass ratio 1.8 {ratio} Normal 1.1-2.5 [facility] Work Phone: Comment on above: PATIENT WAS FASTINGP ERFORMED BY: ORTIZ LabCoaustyn Axhnhv7213 [address] [employer], Tu Tienda OnlineCarolinas ContinueCARE [facility] [id number] ALP enzyme act/vol 71 [iU]/L Normal 39-117 Compre [facility] Internal [facility] Work Phone: Comment on above: PATIENT WAS FASTINGP ERFORMED BY: ORTIZ [facility] Gqijct0405 Rodriguez RoadDublin [place] [id number] ALT enzyme act/vol 10 [iU]/L Normal 0-32 [facility] Internal Medicine Work Phone: Comment on above: PATIENT WAS FASTINGP ERFORMED BY: ORTIZ [facility] Iudejz9117 Rodriguez RoadDublin [place] [id number] AST enzyme act/vol 17 [iU]/L Normal 0-40 [facility] Internal Medicine Work Phone: Comment on above: PATIENT WAS FASTINGP ERFORMED BY: ORTIZ [facility] Hskzjq9375 Rodriguez RoadDublin [place] [id number] Bilirubin mass conc 0.4 mg/dL Normal 0.0-1.2 [facility] Internal Medicine Work Phone: Comment on above: PATIENT WAS FASTINGP ERFORMED BY: ORTIZ [facility] Zkhbhp6868 Rodriguez RoadDublin [place] [id number] Calcium mass conc 9.5 mg/dL Normal 8.7-10.3 Compreh [facility] Internal Medicine Work Phone: Comment on above: PATIENT WAS FASTINGP ERFORMED BY: ORTIZ [facility] Abzzan3341 Rodriguez RoadDublin [place] [id number] Chloride molar conc 106 mmol/L Normal 97-108 [facility] Internal Medicine Work Phone: Comment on above: PATIENT WAS FASTINGP ERFORMED BY: ORTIZ [facility] Ezojnr6851 Rodriguez RoadDublin [place] [id number] CO2 molar conc 25 mmol/L Normal 18-29 [facility] Internal Medicine Work Phone: Comment on above: PATIENT WAS FASTINGP ERFORMED BY: ORTIZ [facility] Uqpavd9945 Rodriguez RoadDublin [place] [id number] Creatinine mass conc 0.92 mg/dL Normal 0.57-1.00 [facility] Internal Medicine Work Phone: Comment on above: PATIENT WAS FASTINGP ERFORMED BY: ORTIZ [facility] Vhbqfi7226 Rodriguez RoadDublin [place] [id number] GFR/1.73 sq M predicted among blacks CKD-EPI vol rate/area (S/P/Bld) 70 mL/min/1.73 Normal [facility] Work Phone: Comment on above: PATIENT WAS FASTINGP ERFORMED BY: ORTIZ [facility] Akwhfz8920 [address] [facility] [place] [id number] GFR/1.73 sq M predicted among non-blacks CKD-EPI vol rate/area (S/P/Bld) 61 mL/min/1.73 Normal Comprehensiv e Internal Medicine Work Phone: Comment on above: PATIENT WAS FASTINGP ERFORMED BY: ORTIZ [facility] Qfzzbi2064 [address] [facility]in [place] [id number] Globulin mass conc (S) 2.3 g/dL Normal 1.5-4.5 Co mprehensive Internal Medicine Work Phone: Comment on above: PATIENT WAS FASTINGP ERFORMED BY: ORTIZ [facility] Seqrah8652 [facility] [id number] Glucose mass conc 84 mg/dL Normal 65-99 Compreh ensive Internal Medicine Work Phone: Comment on above: PATIENT WAS FASTINGP ERFORMED BY: ORTIZ [facility] Jfqkef8862 [address] [facility] [id number] Potassium molar conc 4.6 mmol/L Normal 3.5-5.2 Comp rehensive Internal Medicine Work Phone: Comment on above: PATIENT WAS FASTINGP ERFORMED BY: ORTIZ [facility] Rymcag7718 [facility] [id number] Protein mass conc 6.5 g/dL Normal 6.0-8.5 Compreh ensive Internal Medicine Work Phone: Comment on above: PATIENT WAS FASTINGP ERFORMED BY: ORTIZ [facility] Jhvhcl6113 [address] [facility] [id number] Sodium molar conc 145 mmol/L Abnormal 134-144 Compreh ensive Internal Medicine Work Phone: Comment on above: PATIENT WAS FASTINGP ERFORMED BY: ORTIZ [facility] Joskja3264 [address] [facility] [id number] Urea nitrogen mass conc 16 mg/dL Normal 8-27 [facility] Work Phone: Comment on above: PATIENT WAS FASTINGP ERFORMED BY: ORTIZ LabCoaustyn Crvawy5461 Rodriguez Roadblin [place] [id number] Urea nitrogen/Creatinine mass ratio 17 mg/mg Normal 11-26 [facility] Work Phone: Comment on above: PATIENT WAS FASTINGP ERFORMED BY: ORTIZ [facility] Mjcjma2017 Rodriguez Roadblin [place] [id number] MICROALBUMINOrdered By: [employer] em Media Production Manager on 12-05-2015 Albumin DL <= 20 mg/L mass conc (U) 25.6 ug/mL Abnormal 0.0-17.0 [facility] Work Phone: Comment on above: PATIENT WAS FASTINGP ERFORMED BY: ORTIZ [facility] Tiqdli6820 Rodriguez Roadblin [place] [id number] Albumin/Creatinine mass ratio (U) 9.3 {mg/g_creat} Normal 0.0-30.0 [facility] Work Phone: Comment on above: PATIENT WAS FASTINGP ERFORMED BY: ORTIZ LabCo Heevwx3194 [address] [facility]in [place] [id number] Creatinine mass conc (U) 276.5 mg/dL Normal 15.0-278.0 [facility] Work Phone: Comment on above: PATIENT WAS FASTINGP ERFORMED BY: ORTIZ Lab[facility] Eoalyn0285 [address] [facility] [id number] TSH ([id number])Ordered By: Sy[employer] m Media Production Manager on 12-05-2015 Thyrotropin Qn 1.330 {uIU/mL} Normal 0.450-4.50 0 [facility] Work Phone: Comment on above: PATIENT WAS FASTINGP ERFORMED BY: ORTIZ LabCo Mygiyc3134 Rodriguez [facility] AlmaDublin [place] [id number] URINALYSIS, W/ MICRO ([id number]) Ordered By: Executive Chairman on 12-05-2015 Appearance Nom (U) Clear Normal Compre [facility] Internal Medicine Work Phone: Comment on above: PATIENT WAS FASTINGP ERFORMED BY: ORTIZ Crowelin6370 [address] RoadDublin [place] [id number] Bilirubin Ql (U) Negative Normal Comprehe nsive Internal Medicine Work Phone: Comment on above: PATIENT WAS FASTINGP ERFORMED BY: ORTIZ MeenaAleksandr CroweKmlkod7401 Rodriguez RoadDublin [place] [id number] Color Nom (U) Yellow Normal Comprehensi ve Internal Medicine Work Phone: Comment on above: PATIENT WAS FASTINGP ERFORMED BY: ORTIZ Crowelin6370 [address] RoadDublin [place] [id number] Glucose Ql (U) Negative Normal Comprehens trupti Internal Medicine Work Phone: Comment on above: PATIENT WAS FASTINGP ERFORMED BY: ORTIZ Crowelin6370 [address] RoadDublin [place] [id number] Hemoglobin Ql (U) Negative Normal Compreh ensive Internal Medicine Work Phone: Comment on above: PATIENT WAS FASTINGP ERFORMED BY: ORTIZ Crowelin6370 [address] RoadDublin [place] [id number] Ketones Ql (U) Negative Normal Comprehens trupti Internal Medicine Work Phone: Comment on above: PATIENT WAS FASTINGP ERFORMED BY: ORTIZ Crowelin6370 [address] [facility]in [place] [id number] Leukocyte esterase Test strip Ql (U) Negative Normal [facility] Work Phone: Comment on above: PATIENT WAS FASTINGP ERFORMED BY: ORTIZ Crowelin6370 [address] Roadblin [place] [id number] Microscopic observation LM Nom (Urine sed) See below: Normal [facility] Work Phone: Comment on above: Microscopic was derrick cated and was performed. PATIENT WAS FASTINGP ERFORMED BY: ORTIZ Crowelin6370 [address] RoadDublin [place] [id number] Nitrite Ql (U) Negative Normal Comprehens trupti Internal Medicine Work Phone: Comment on above: PATIENT WAS FASTINGP ERFORMED BY: ORTIZ RobledoThree [facility] Zsufgo1835 [address] RoadMontgomery [place] [id number] pH (U) 5.5 [pH] Normal 5.0-7.5 [facility] Work Phone: Comment on above: PATIENT WAS FASTINGP ERFORMED BY: ORTIZ [facility]enaCore[facility]6370 [address] [facility] Hospitalblin [place] [id number] Protein Ql (U) 1+ Abnormal Comprehens trupti Internal Medicine Work Phone: Comment on above: PATIENT WAS FASTINGP ERFORMED BY: ORTIZ [facility]6370 [facility] [id number] Specific gravity Relative Density (U) 1.029 1 Normal 1.005-1.03 0 [facility] Work Phone: Comment on above: PATIENT WAS FASTINGP ERFORMED BY: ORTIZ [facility]6370 [facility] [id number] Urobilinogen Test strip mass conc (U) 0.2 mg/dL Normal 0.2-1.0 Comprehensiv e Internal Medicine Work Phone: Comment on above: PATIENT WAS FASTINGP ERFORMED BY: ORTIZ LabCorewell Health [facility]eland Hospital6370 [facility] [id number] VITAMIN B-12 (CYANOCOBALAMIN ) ([id number])Ordered By: Executive Chairman on 12-05-2015 Cobalamin (Vitamin B12) mass conc 465 pg/mL Normal 211-946 [facility] Work Phone: Comment on above: PATIENT WAS FASTINGP ERFORMED BY: LabCorewell [facility]eland Hospital6370 [facility] [id number] Fecal Occult Blood , Office ([id number])Ordered By: Gabino Bullock on 11-08-2015 Hemoglobin.gastrointes tinal Ql (St) Negative Normal [facility] Work Phone: VITAMIN B-12 (CYANOCOBALAMIN ) ([id number])Ordered By: Executive Chairman on 08-27-2015 Cobalamin (Vitamin B12) mass conc 919 pg/mL Normal 211-946 [facility] Work Phone: Comment on above: PATIENT NOT FASTINGP ERFORMED BY: [facility]allin6370 [facility] [id number] Information: [id number] Clinical Lists Update: Prelo nurse healthcare manager 05-26-2015 Anion gap 6 mmol/L Invalid Interpretation Code [facility] Work Phone: basophils as percent of blood leukocytes, manual count 0.5 % Invalid Interpretation Code [facility] Work Phone: BUN/Creatinine Ratio 18.8 mg/mg Invalid Interpretation Code [facility] Work Phone: Calcium 8.9 mg/dL Invalid Interpretation Code [facility] Work Phone: Chloride 106 mmol/L Invalid Interpretation Code [facility] Work Phone: CO2 31.0 mmol/L Invalid Interpretation Code [facility] Work Phone: Creatinine 0.85 mg/dL Invalid Interpretation Code [facility] Work Phone: eosinophils as percent of blood leukocytes, manual count 5.4 % High [facility] Work Phone: Erythrocytes (RBC) 4.14 10*6/uL Low [facility] Work Phone: Glucose 102 mg/dL Invalid Interpretation Code [facility] Work Phone: Hematocrit (HCT) 38.6 % Invalid Interpretation Code [facility] Work Phone: Hemoglobin (HGB) 12.6 g/dL Invalid Interpretation Code [facility] Work Phone: Lymphocytes/100 leukocytes 27.3 % Invalid Interpretation Code [facility] Work Phone: MCH 30.4 pg Invalid Interpretation Code [facility] Work Phone: MCHC 32.6 g/dL Invalid Interpretation Code [facility] Work Phone: MCV 93.2 fL Invalid Interpretation Code [facility] Work Phone: Monocytes/100 leukocytes 10.2 % High [facility] Work Phone: neutrophils, band form as percent of blood leukocytes, manual count 56.4 % Invalid Interpretation Code [facility] Work Phone: Platelets 162 10*3/mm3 Invalid Interpretation Code [facility] Work Phone: PMV by Bernard 9.6 fL Invalid Interpretation Code [facility] Work Phone: Potassium 4.3 mmol/L Invalid Interpretation Code [facility] Work Phone: RDW-CA 12.9 % Invalid Interpretation Code [facility] Work Phone: Sodium 143 mmol/L Invalid Interpretation Code [facility] Work Phone: Urea nitrogen 16 mg/dL Invalid Interpretation Code [facility] Work Phone: WBC (Leukocytes) 6.3 10*3/uL Invalid Interpretation Code [facility] Work Phone: Clinical Lists Update: Prelo nurse healthcare manager 04-26-2015 Cholesterol 136 mg/dL Invalid Interpretation Code [facility] Work Phone: HDL Cholesterol 49 mg/dL Invalid Interpretation Code [facility] Work Phone: LDL Cholesterol 66 mg/dL Invalid Interpretation Code [facility] Work Phone: Triglyceride 105 mg/dL Invalid Interpretation Code [facility] Work Phone: very low density lipoproteins 21 mg/dL Invalid Interpretation Code [facility] Work Phone: CBC W/AUTO DIFF WBC ([id number])O rdered By: Executive Chairman on 10-19-2014 Basophils #/vol (Bld) 0.0 {x10E3/uL} Normal 0.0-0.2 [facility] Work Phone: Comment on above: PATIENT WAS FASTINGP ERFORMED BY: ORTIZ [facility]In[facility] Connectr [place] [employer], Tu Tienda OnlineCarolinas ContinueCARE [facility] [id number] Information: [id number] Basophils/100 WBC (Bld) 1 % Normal [facility] Work Phone: Comment on above: PATIENT WAS FASTINGP ERFORMED BY: ORTIZ Student Designed Rodriguez MEI PharmaCritical access hospital [id number] Information: [id number] Eosinophils #/vol (Bld) 0.2 {x10E3/uL} Normal 0.0-0.4 [facility] Work Phone: Comment on above: PATIENT WAS FASTINGP ERFORMED BY: [place] 6512270 [facility] [id number] Information: [id number] Eosinophils/100 WBC (Bld) 5 % Normal [facility] Work Phone: Comment on above: PATIENT WAS FASTINGP ERFORMED BY: [address] [id number] Information: [id number] Erythrocyte distribution width Ratio (RBC) 13.5 % Normal 12.3-15.4 [facility] Work Phone: Comment on above: PATIENT WAS FASTINGP ERFORMED BY: [address] [id number] Information: [id number] Hematocrit Volume Fraction (Bld) 39.1 % Normal 34.0-46.6 [facility] Work Phone: Comment on above: PATIENT WAS FASTINGP ERFORMED BY: [address] [id number] Information: [id number] Hemoglobin mass conc (Bld) 12.9 g/dL Normal 11.1-15.9 [facility] Work Phone: Comment on above: PATIENT WAS FASTINGP ERFORMED BY: [address] [id number] Information: [id number] Immature granulocytes #/vol (Bld) 0.0 {x10E3/uL} Normal 0.0-0.1 [facility] Work Phone: Comment on above: PATIENT WAS FASTINGP ERFORMED BY: [address] [id number] Information: [id number] Immature granulocytes/100 WBC (Bld) 0 % Normal [facility] Work Phone: Comment on above: PATIENT WAS FASTINGP ERFORMED BY: [address] [id number] Information: [id number] Lymphocytes #/vol (Bld) 1.2 {x10E3/uL} Normal 0.7-3.1 [facility] Work Phone: Comment on above: PATIENT WAS FASTINGP ERFORMED BY: [address] [id number] Information: [id number] Lymphocytes/100 WBC (Bld) 25 % Normal [facility] Work Phone: Comment on above: PATIENT WAS FASTINGP ERFORMED BY: [address] [id number] Information: [id number] MCH Entitic mass (RBC) 29.8 pg Normal 26.6-33.0 [facility] Internal Medicine Work Phone: Comment on above: PATIENT WAS FASTINGP ERFORMED BY: [address] [id number] Information: [id number] MCHC mass conc (RBC) 33.0 g/dL Normal 31.5-35.7 [facility] Internal Medicine Work Phone: Comment on above: PATIENT WAS FASTINGP ERFORMED BY: [address] [id number] Information: [id number] MCV Entitic volume (RBC) 90 fL Normal 79-97 [facility] Internal Medicine Work Phone: Comment on above: PATIENT WAS FASTINGP ERFORMED BY: [address] [id number] Information: [id number] Monocytes #/vol (Bld) 0.5 {x10E3/uL} Normal 0.1-0.9 [facility] Work Phone: Comment on above: PATIENT WAS FASTINGP ERFORMED BY: ORTIZ [facility] Vtqmvr9329 [facility] [id number] Information: [id number] Monocytes/100 WBC (Bld) 10 % Normal [facility] Work Phone: Comment on above: PATIENT WAS FASTINGP ERFORMED BY: [place] 6512270 [facility] [id number] Information: [id number] Neutrophils #/vol (Bld) 2.9 {x10E3/uL} Normal 1.4-7.0 [facility] Work Phone: Comment on above: PATIENT WAS FASTINGP ERFORMED BY: [facility] Revcsk7067 [facility] [id number] Information: [id number] Neutrophils/100 WBC (Bld) 59 % Normal [facility] Work Phone: Comment on above: PATIENT WAS FASTINGP ERFORMED BY: ORTIZ [facility]6370 [facility] [id number] Information: [id number] Platelets #/vol (Bld) 196 {x10E3/uL} Normal 150-379 [facility] Work Phone: Comment on above: PATIENT WAS FASTINGP ERFORMED BY: [facility]6370 [facility] [id number] Information: [id number] RBC #/vol (Bld) 4.33 {x10E6/uL} Normal 3.77-5.28 [facility] Internal Medicine Work Phone: Comment on above: PATIENT WAS FASTINGP ERFORMED BY: LabCore[facility]6370 [facility] [id number] Information: [id number] WBC #/vol (Bld) 4.9 {x10E3/uL} Normal 3.4-10.8 [facility] Internal Medicine Work Phone: Comment on above: PATIENT WAS FASTINGP ERFORMED BY: ORTIZ [facility] Mmzdch1478 [address] [facility]in [place] [id number] Information: [id number] LIPID PANEL (08613)Ordered B y: Executive Chairman on 10-19-2014 Cholesterol in HDL mass conc 47 mg/dL Normal [facility] Work Phone: Comment on above: According to ATP-III Guidelines, HDL-C >59 mg/dL is considered anegative risk factor for CHD. PATIENT WAS FASTINGP ERFORMED BY: ORTIZ [facility] Whdnyj0876 [address] [facility]in [place] [id number] Cholesterol in LDL mass conc 148 mg/dL Abnormal 0-99 [facility] Work Phone: Comment on above: PATIENT WAS FASTINGP ERFORMED BY: ORTIZ LabCoaustyn Xemwic6793 [facility] [id number] Cholesterol in LDL/Cholesterol in HDL mass ratio 3.1 {ratio_units} Normal 0.0-3.2 [facility] Work Phone: Comment on above: LDL/HDL Ratio Men Wo men 1/2 Avg.Risk 1.0 1.5 Avg.Risk 3.6 3.2 2X Avg.Risk 6.2 5.0 3X Avg.Risk 8.0 6.1 PATIENT WAS FASTINGP ERFORMED BY: ORTIZ [facility] Eotuax2974 [facility] [id number] Cholesterol in VLDL mass conc 36 mg/dL Normal 5-40 [facility] Work Phone: Comment on above: PATIENT WAS FASTINGP ERFORMED BY: ORTIZ [facility] Wbslmj5750 [address] [facility]in [place] [id number] Cholesterol mass conc 231 mg/dL Abnormal 100-199 Com prehensive Internal Medicine Work Phone: Comment on above: PATIENT WAS FASTINGP ERFORMED BY: ORTIZ [facility] Gcevcc6188 [address] [facility] Hospitalblin [place] [id number] Triglyceride mass conc 179 mg/dL Abnormal 0-149 Co mprehensive Internal Medicine Work Phone: Comment on above: PATIENT WAS FASTINGP ERFORMED BY: ORTIZ [facility] Yzlgua9955 Rodriguez RoadDublin [place] [id number] METABOLIC PANEL, COMPREHENSI VE ([id number])Ordered By: Executive Chairman on 10-19-2014 Albumin mass conc 4.3 g/dL Normal 3.5-4.8 Compreh ensive Internal Medicine Work Phone: Comment on above: PATIENT WAS FASTINGP ERFORMED BY: ORTIZ [facility] Yttbjx8553 Rodriguez Roadblin [place] [id number] Albumin/Globulin mass ratio 2.2 {ratio} Normal 1.1-2.5 [facility] Work Phone: Comment on above: PATIENT WAS FASTINGP ERFORMED BY: ORTIZ [facility] Sqpsjl5886 Rodriguez RoadDublin [place] [id number] ALP enzyme act/vol 73 [iU]/L Normal 39-117 Compre [facility] Internal Medicine Work Phone: Comment on above: PATIENT WAS FASTINGP ERFORMED BY: ORTIZ [facility]Three [facility] Fajzln2608 Rodriguez Roadblin [place] [id number] ALT enzyme act/vol 8 [iU]/L Normal 0-32 Compre [facility] Internal Medicine Work Phone: Comment on above: PATIENT WAS FASTINGP ERFORMED BY: ORTIZ [facility] Ncdvvs0591 [address] Roadblin [place] [id number] AST enzyme act/vol 15 [iU]/L Normal 0-40 Compre [facility] Internal Medicine Work Phone: Comment on above: PATIENT WAS FASTINGP ERFORMED BY: ORTIZ LabThree [facility] Jbzlrr4392 [address] [facility]bl[facility] [place] [id number] Bilirubin mass conc 0.3 mg/dL Normal 0.0-1.2 Compr [facility] Internal Medicine Work Phone: Comment on above: PATIENT WAS FASTINGP ERFORMED BY: ORTIZ [facility] Susgaq4150 [address]bl[address] [place] [id number] Calcium mass conc 9.6 mg/dL Normal 8.7-10.3 Compreh ensive Internal Medicine Work Phone: Comment on above: PATIENT WAS FASTINGP ERFORMED BY: ORTIZ [facility] Unasnw9156 [address] [facility] [place] [id number] Chloride molar conc 99 mmol/L Normal 97-108 Compr ehensive Internal Medicine Work Phone: Comment on above: PATIENT WAS FASTINGP ERFORMED BY: ORTIZ LabKellie Ekrlrm3[address]bl[address] [place] [id number] CO2 molar conc 27 mmol/L Normal 18-29 Comprehens trupti Internal Medicine Work Phone: Comment on above: PATIENT WAS FASTINGP ERFORMED BY: ORTIZ [facility] Nmwrls8266 [address] RoadAtrium Health University Cityin [place] [id number] Creatinine mass conc 0.91 mg/dL Normal 0.57-1.00 Comp [facility] medical centerensive Internal Medicine Work Phone: Comment on above: PATIENT WAS FASTINGP ERFORMED BY: ORTIZ [facility] Anxafj0028 [facility] [id number] GFR/1.73 sq M predicted among blacks CKD-EPI vol rate/area (S/P/Bld) 71 mL/min/1.73 Normal [facility] Medicine Work Phone: Comment on above: PATIENT WAS FASTINGP ERFORMED BY: ORTIZ [facility] Fjiuss0046 [address] [facility] [id number] GFR/1.73 sq M predicted among non-blacks CKD-EPI vol rate/area (S/P/Bld) 62 mL/min/1.73 Normal Comprehensiv e Internal Medicine Work Phone: Comment on above: PATIENT WAS FASTINGP ERFORMED BY: ORTIZ [facility] Wsgdao0[address] [facility] [id number] Globulin mass conc (S) 2.0 g/dL Normal 1.5-4.5 Co [facility] centerensive Internal Medicine Work Phone: Comment on above: PATIENT WAS FASTINGP ERFORMED BY: ORTIZ [facility] Ewgmeh89[address] [facility] [place] [id number] Glucose mass conc 82 mg/dL Normal 65-99 Compreh ensive Internal Medicine Work Phone: Comment on above: PATIENT WAS FASTINGP ERFORMED BY: ORTIZ [facility] Ihsogi9510 [address] RoadDublin [place] [id number] Potassium molar conc 4.6 mmol/L Normal 3.5-5.2 Comp rehensive Internal Medicine Work Phone: Comment on above: PATIENT WAS FASTINGP ERFORMED BY: ORTIZ [facility] Abxlkh9488 [address] RoadDublin [place] [id number] Protein mass conc 6.3 g/dL Normal 6.0-8.5 Compreh ensive Internal Medicine Work Phone: Comment on above: PATIENT WAS FASTINGP ERFORMED BY: ORTIZ [facility] Udwylz4557 [address] RoadDublin [place] [id number] Sodium molar conc 141 mmol/L Normal 134-144 Compreh ensive Internal Medicine Work Phone: Comment on above: PATIENT WAS FASTINGP ERFORMED BY: ORTIZ LabCoaustyn CrowePtlzjf5[address] RoadDuin [place] [id number] Urea nitrogen mass conc 11 mg/dL Normal 8-27 [facility] Internal Medicine Work Phone: Comment on above: PATIENT WAS FASTINGP ERFORMED BY: ORTIZ [facility] Eaquwl14[address] [facility] [place] [id number] Urea nitrogen/Creatinine mass ratio 12 mg/mg Normal 11-26 [facility] Internal Medicine Work Phone: Comment on above: PATIENT WAS FASTINGP ERFORMED BY: ORTIZ Hou Hzmysx0491 [address] [facility]in [place] [id number] MICROALBUMINOrdered By: Syst em Media Production Manager on 10-19-2014 Albumin DL <= 20 mg/L mass conc (U) 10.7 ug/mL Normal 0.0-17.0 [facility] Medicine Work Phone: Comment on above: PATIENT WAS FASTINGP ERFORMED BY: ORTIZ [facility] Oictqt6517 [address] RoadDublin [place] [id number] Albumin/Creatinine mass ratio (U) 8.1 {mg/g_creat} Normal 0.0-30.0 [facility] Medicine Work Phone: Comment on above: PATIENT WAS FASTINGP ERFORMED BY: ORTIZ [facility] Mwrhit2498 [address] RoadDublin [place] [id number] Creatinine mass conc (U) 132.3 mg/dL Normal 15.0-278.0 [facility] Medicine Work Phone: Comment on above: PATIENT WAS FASTINGP ERFORMED BY: ORTIZ Crowelin6[address] [facility] [place] [id number] TSH ([id number])Ordered By: [employer] Weather Mediae m Media Production Manager on 10-19-2014 Thyrotropin Qn 1.170 {uIU/mL} Normal 0.450-4.50 0 [facility] Internal Medicine Work Phone: Comment on above: PATIENT WAS FASTINGP ERFORMED BY: ORTIZ Chester6370 [facility] [id number] URINALYSIS, W/ MICRO ([id number]) Ordered By: Executive Chairman on 10-19-2014 Appearance Nom (U) Clear Normal Compre hensive Internal Medicine Work Phone: Comment on above: PATIENT WAS FASTINGP ERFORMED BY: ORTIZ Crowelin6[address] [facility] [id number] Bilirubin Ql (U) Negative Normal Comprehe nsive Internal Medicine Work Phone: Comment on above: PATIENT WAS FASTINGP ERFORMED BY: ORTIZ Crowelin6[address] [facility] [id number] Color Nom (U) Yellow Normal Comprehensi ve Internal Medicine Work Phone: Comment on above: PATIENT WAS FASTINGP ERFORMED BY: ORTIZ Crowelin6[address] [facility] [id number] Glucose Ql (U) Negative Normal Comprehens trupti Internal Medicine Work Phone: Comment on above: PATIENT WAS FASTINGP ERFORMED BY: ORTIZ LabAleksandr CroweBpbvpz1610 [address] RoadDublin [place] [id number] Hemoglobin Ql (U) Negative Normal Compreh ensive Internal Medicine Work Phone: Comment on above: PATIENT WAS FASTINGP ERFORMED BY: ORTIZ LabAleksandr CroweMhlsvp0678 [address] [facility]in [place] [id number] Ketones Ql (U) Negative Normal Comprehens trupti Internal Medicine Work Phone: Comment on above: PATIENT WAS FASTINGP ERFORMED BY: ORTIZ [facility] Priunb1643 [address] RoadDublin [place] [id number] Leukocyte esterase Test strip Ql (U) Negative Normal [facility] Medicine Work Phone: Comment on above: PATIENT WAS FASTINGP ERFORMED BY: ORTIZ [facility] Jcsyta9967 [address] RoadDublin [place] [id number] Microscopic observation LM Nom (Urine sed) See below: Normal [facility] Internal Medicine Work Phone: Comment on above: Microscopic was derrick cated and was performed. PATIENT WAS FASTINGP ERFORMED BY: ORTIZ LabCoaustyn CroweDlnwnd9487 [address] RoadDublin [place] [id number] Microscopic observation LM Nom (Urine sed) MICRON Normal [facility] Internal Medicine Work Phone: Comment on above: Microscopic follows if indicated. PATIENT WAS FASTINGP ERFORMED BY: ORTIZ Crowelin6370 [address] RoadDublin [place] [id number] Nitrite Ql (U) Negative Normal [facility] trupti Internal Medicine Work Phone: Comment on above: PATIENT WAS FASTINGP ERFORMED BY: ORTIZ Crowelin6370 [address] RoadDublin [place] [id number] pH (U) 7.0 [pH] Normal 5.0-7.5 [facility] Internal Medicine Work Phone: Comment on above: PATIENT WAS FASTINGP ERFORMED BY: ORTIZ Crowelin6370 [address] RoadDublin [place] [id number] Protein Ql (U) Trace Normal [facility] Internal Medicine Work Phone: Comment on above: PATIENT WAS FASTINGP ERFORMED BY: ORTIZ [facility] Djiour7014 [address] RoadDublin [place] [id number] Specific gravity Relative Density (U) 1.017 1 Normal 1.005-1.03 0 [facility] Internal Medicine Work Phone: Comment on above: PATIENT WAS FASTINGP ERFORMED BY: ORTIZ [facility] Rqajib2233 [address] RoadDublin [place] [id number] Urobilinogen Test strip mass conc (U) 0.2 mg/dL Normal 0.0-1.9 Comprehensiv e Internal Medicine Work Phone: Comment on above: PATIENT WAS FASTINGP ERFORMED BY: CInergy International UKCoSaint Barnabas Behavioral Health CenterLjjaqc1382 [facility] [id number] Vitamin D Hydroxy (87961)Ord ered By: Executive Chairman on 10-19-2014 25-Hydroxyvitamin D2+25-Hydroxyvitamin D3 mass conc 39.6 ng/mL Normal 30.0-100.0 [facility] Internal Medicine Work Phone: Comment on above: Vitamin D deficiency has been defined by the Tow ofMedicine and an Endocrine Society practice guideline as alevel of serum 25-OH vitamin D less than 20 ng/mL (1,2).The Endocrine Society went on to further define vitamin Dinsufficiency as a level between 21 and 29 ng/mL (2).1. IOM (Tow of Medicine). 2010. Dietary reference intakes for calcium and D. [place]: The National Academies Press.2. Allie MF, Emile NC, Natalie POOLE, et al. Evaluation, treatment, and prevention of vitamin D deficiency: an Endocrine Society clinical practice guideline. JCEM. 2010; 96(7):1911-30. PATIENT WAS FASTINGP ERFORMED BY: CInergy International UKCoAPImetrics Ksfrsh9797 [facility] [id number] FECAL OCCULT HGB ASSAY- tube s sent home ([id number])Ordered By: Cady Huber on 10-12-2014 Hemoglobin.gastrointes tinal Ql (St) Negative Normal [facility] Internal Medicine Work Phone: Office Visit: [facility] 10-10-19 15 cardiac risk group C Invalid Interpretation Code [facility] Work Phone: General cardiovascular disease 10Y risk [#] [place] N/A Invalid Interpretation Code [facility] Work Phone: Replaced Document: Escobar Watsonon 10-10-2014 electrocardiogram interpretation Sinus Bradycardia WITHIN NORMAL LIMITS Invalid Interpretation Code [facility] Work Phone: GE use only - for LinkLogic import when terms are not otherwise specified 438 ms Invalid Interpretation Code [facility] Work Phone: P wave axis, electrocardiogram 33 deg Invalid Interpretation Code [facility] Work Phone: MN interval, electrocardiogram 164 ms Invalid Interpretation Code [facility] Work Phone: Pulse (Heart Rate) 55 /min Invalid Interpretation Code [facility] Work Phone: QRS axis, electrocardiogram 7 deg Invalid Interpretation Code [facility] Work Phone: QRS duration, electrocardiogram 90 ms Invalid Interpretation Code [facility] Work Phone: QT interval, electrocardiogram new path ms Invalid Interpretation Code [facility] Work Phone: T wave axis, electrocardiogram 41 deg Invalid Interpretation Code [facility] Work Phone: CBC WITH MANUAL DIFF ([id number]) Ordered By: Executive Chairman on 06-26-2014 Basophils #/vol (Bld) 0.0 {x10E3/uL} Normal 0.0-0.2 [facility] Work Phone: Comment on above: PATIENT WAS FASTINGP ERFORMED BY: EcoFactorCritical access hospital [id number] Information: [id number] Basophils/100 WBC (Bld) 1 % Normal [facility] Work Phone: Comment on above: PATIENT WAS FASTINGP ERFORMED BY: EcoFactorCritical access hospital [id number] Information: [id number] Eosinophils #/vol (Bld) 0.2 {x10E3/uL} Normal 0.0-0.4 [facility] Work Phone: Comment on above: PATIENT WAS FASTINGP ERFORMED BY: mobifriends HaoguihuaCritical access hospital [id number] Information: [id number] Eosinophils/100 WBC (Bld) 3 % Normal [facility] Work Phone: Comment on above: PATIENT WAS FASTINGP ERFORMED BY: [facility] GeekChicDailyDublin [place] [id number] Information: [id number] Erythrocyte distribution width Ratio (RBC) 13.4 % Normal 12.3-15.4 [facility] Work Phone: Comment on above: PATIENT WAS FASTINGP ERFORMED BY: [address] [id number] Information: [id number] Hematocrit Volume Fraction (Bld) 40.5 % Normal 34.0-46.6 [facility] Work Phone: Comment on above: PATIENT WAS FASTINGP ERFORMED BY: [address] [id number] Information: [id number] Hemoglobin mass conc (Bld) 13.1 g/dL Normal 11.1-15.9 [facility] Work Phone: Comment on above: PATIENT WAS FASTINGP ERFORMED BY: [address] [id number] Information: [id number] Immature granulocytes #/vol (Bld) 0.0 {x10E3/uL} Normal 0.0-0.1 [facility] Work Phone: Comment on above: PATIENT WAS FASTINGP ERFORMED BY: [place] 6512270 [facility] [id number] Information: [id number] Immature granulocytes/100 WBC (Bld) 0 % Normal [facility] Medicine Work Phone: Comment on above: PATIENT WAS FASTINGP ERFORMED BY: [place] 6512270 [facility] [id number] Information: [id number] Lymphocytes #/vol (Bld) 1.1 {x10E3/uL} Normal 0.7-3.1 [facility] Work Phone: Comment on above: PATIENT WAS FASTINGP ERFORMED BY: [address] [id number] Information: [id number] Lymphocytes/100 WBC (Bld) 21 % Normal [facility] Medicine Work Phone: Comment on above: PATIENT WAS FASTINGP ERFORMED BY: [place] 6512270 [facility] [id number] Information: [id number] MCH Entitic mass (RBC) 29.4 pg Normal 26.6-33.0 [facility] Internal Medicine Work Phone: Comment on above: PATIENT WAS FASTINGP ERFORMED BY: [address] [id number] Information: [id number] MCHC mass conc (RBC) 32.3 g/dL Normal 31.5-35.7 [facility] Internal Medicine Work Phone: Comment on above: PATIENT WAS FASTINGP ERFORMED BY: [address] [id number] Information: [id number] MCV Entitic volume (RBC) 91 fL Normal 79-97 [facility] Medicine Work Phone: Comment on above: PATIENT WAS FASTINGP ERFORMED BY: [address] [id number] Information: [id number] Monocytes #/vol (Bld) 0.5 {x10E3/uL} Normal 0.1-0.9 [facility] Work Phone: Comment on above: PATIENT WAS FASTINGP ERFORMED BY: [address] [id number] Information: [id number] Monocytes/100 WBC (Bld) 10 % Normal [facility] Medicine Work Phone: Comment on above: PATIENT WAS FASTINGP ERFORMED BY: [address] [id number] Information: [id number] Neutrophils #/vol (Bld) 3.7 {x10E3/uL} Normal 1.4-7.0 [facility] Work Phone: Comment on above: PATIENT WAS FASTINGP ERFORMED BY: ORTIZ Chester6370 [facility] [id number] Information: [id number] Neutrophils/100 WBC (Bld) 65 % Normal [facility] Medicine Work Phone: Comment on above: PATIENT WAS FASTINGP ERFORMED BY: ORTIZ RobledoThree [facility] Jyubmk64[address] [id number] Information: [id number] Platelets #/vol (Bld) 198 {x10E3/uL} Normal 150-379 [facility] Internal Medicine Work Phone: Comment on above: PATIENT WAS FASTINGP ERFORMED BY: MeenaThree [facility] Healthcare Xlznii679[address] [id number] Information: [id number] RBC #/vol (Bld) 4.45 {x10E6/uL} Normal 3.77-5.28 [facility] Internal Medicine Work Phone: Comment on above: PATIENT WAS FASTINGP ERFORMED BY: ORTIZ RobledoThree [facility] Dtqspt477[address] [id number] Information: [id number] WBC #/vol (Bld) 5.6 {x10E3/uL} Normal 3.4-10.8 [facility] Internal Medicine Work Phone: Comment on above: PATIENT WAS FASTINGP ERFORMED BY: [place] [address]12270 [facility] [id number] Information: [id number] LIPID PANEL (15753)Ordered B y: Executive Chairman on 06-26-2014 Cholesterol in HDL mass conc 46 mg/dL Normal [facility] Medicine Work Phone: Comment on above: According to ATP-III Guidelines, HDL-C >59 mg/dL is considered anegative risk factor for CHD. PATIENT WAS FASTINGP ERFORMED BY: [place] 6512270 [facility] [id number] Cholesterol in LDL mass conc 130 mg/dL Abnormal 0-99 [facility] Medicine Work Phone: Comment on above: PATIENT WAS FASTINGP ERFORMED BY: ORTIZ Chester6370 [facility] [id number] Cholesterol in LDL/Cholesterol in HDL mass ratio 2.8 {ratio_units} Normal 0.0-3.2 [facility] Work Phone: Comment on above: LDL/HDL Ratio Men Wo men 1/2 Avg.Risk 1.0 1.5 Avg.Risk 3.6 3.2 2X Avg.Risk 6.2 5.0 3X Avg.Risk 8.0 6.1 PATIENT WAS FASTINGP ERFORMED BY: ORTIZ Crowelin6370 [facility] [id number] Cholesterol in VLDL mass conc 41 mg/dL Abnormal 5-40 [facility] Work Phone: Comment on above: PATIENT WAS FASTINGP ERFORMED BY: ORTIZ Crowelin6370 [facility] [id number] Cholesterol mass conc 217 mg/dL Abnormal 100-199 Com prehensive Internal Medicine Work Phone: Comment on above: PATIENT WAS FASTINGP ERFORMED BY: ORTIZ Crowelin6370 [facility] [id number] Triglyceride mass conc 203 mg/dL Abnormal 0-149 Co mprehensive Internal Medicine Work Phone: Comment on above: PATIENT WAS FASTINGP ERFORMED BY: ORTIZ Crowelin6370 [facility] [id number] METABOLIC PANEL, COMPREHENSI VE ([id number])Ordered By: Executive Chairman on 06-26-2014 Albumin mass conc 4.0 g/dL Normal 3.5-4.8 Compreh ensive Internal Medicine Work Phone: Comment on above: PATIENT WAS FASTINGP ERFORMED BY: ORTIZ Crowelin6370 [facility] [id number] Albumin/Globulin mass ratio 1.7 {ratio} Normal 1.1-2.5 [facility] Work Phone: Comment on above: PATIENT WAS FASTINGP ERFORMED BY: ORTIZ [facility] Gwudjx4353 [address] RoadDublin [place] [id number] ALP enzyme act/vol 80 [iU]/L Normal 39-117 [facility]pr[facility] Internal Medicine Work Phone: Comment on above: PATIENT WAS FASTINGP ERFORMED BY: CB [facility] Mcoxrq6652 [address] RoadDublin [place] [id number] ALT enzyme act/vol 8 [iU]/L Normal 0-32 [facility] Internal Medicine Work Phone: Comment on above: PATIENT WAS FASTINGP ERFORMED BY: ORTIZ [facility] Qxafct7095 [address] RoadDublin [place] [id number] AST enzyme act/vol 10 [iU]/L Normal 0-40 [facility]pr[facility] Internal Medicine Work Phone: Comment on above: PATIENT WAS FASTINGP ERFORMED BY: ORTIZ [facility] Djmrlj7139 [address] RoadDublin [place] [id number] Bilirubin mass conc 0.3 mg/dL Normal 0.0-1.2 Compr [facility] Internal Medicine Work Phone: Comment on above: PATIENT WAS FASTINGP ERFORMED BY: ORTIZ [facility] Vamakh7919 [address] RoadDublin [place] [id number] Calcium mass conc 9.4 mg/dL Normal 8.6-10.2 Compreh [facility] servicesive Internal Medicine Work Phone: Comment on above: PATIENT WAS FASTINGP ERFORMED BY: ORTIZ [facility] Xmkkzb8895 [address] RoadDublin [place] [id number] Chloride molar conc 100 mmol/L Normal 97-108 Compr ensive Internal Medicine Work Phone: Comment on above: PATIENT WAS FASTINGP ERFORMED BY: CB [facility] Ippgjw5003 [address] RoadDublin [place] [id number] CO2 molar conc 26 mmol/L Normal 18-29 Comprehens trupti Internal Medicine Work Phone: Comment on above: PATIENT WAS FASTINGP ERFORMED BY: ORTIZ [facility] Uxcneg1630 [address] RoadDublin [place] [id number] Creatinine mass conc 0.80 mg/dL Normal 0.57-1.00 Comp rehensive Internal Medicine Work Phone: Comment on above: PATIENT WAS FASTINGP ERFORMED BY: ORTIZ MeenaAleksandr CroweBzdgdd1040 [facility] [id number] GFR/1.73 sq M predicted among blacks CKD-EPI vol rate/area (S/P/Bld) 83 mL/min/1.73 Normal [facility] Work Phone: Comment on above: PATIENT WAS FASTINGP ERFORMED BY: ORTIZ Crwoelin6370 [facility] [id number] GFR/1.73 sq M predicted among non-blacks CKD-EPI vol rate/area (S/P/Bld) 72 mL/min/1.73 Normal Comprehensiv e Internal Medicine Work Phone: Comment on above: PATIENT WAS FASTINGP ERFORMED BY: ORTIZ Crowelin6370 [facility] [id number] Globulin mass conc (S) 2.3 g/dL Normal 1.5-4.5 Co [facility] centerehensive Internal Medicine Work Phone: Comment on above: PATIENT WAS FASTINGP ERFORMED BY: ORTIZ Chester6370 [facility] [id number] Glucose mass conc 90 mg/dL Normal 65-99 Compreh ensive Internal Medicine Work Phone: Comment on above: PATIENT WAS FASTINGP ERFORMED BY: ORTIZ Crowelin6370 [facility] [id number] Potassium molar conc 4.0 mmol/L Normal 3.5-5.2 Comp rehensive Internal Medicine Work Phone: Comment on above: PATIENT WAS FASTINGP ERFORMED BY: ORTIZ MeenaAleksandr CroweYkraag2064 [facility] [id number] Protein mass conc 6.3 g/dL Normal 6.0-8.5 Compreh ensive Internal Medicine Work Phone: Comment on above: PATIENT WAS FASTINGP ERFORMED BY: ORTIZ Crowelin6370 [facility] [id number] Sodium molar conc 142 mmol/L Normal 134-144 Compreh ensive Internal Medicine Work Phone: Comment on above: PATIENT WAS FASTINGP ERFORMED BY: ORTIZ Chester6370 [facility] [id number] Urea nitrogen mass conc 10 mg/dL Normal 8-27 [facility] Work Phone: Comment on above: PATIENT WAS FASTINGP ERFORMED BY: ORTIZ Ameya Dzrvzd2070 [facility] [id number] Urea nitrogen/Creatinine mass ratio 13 mg/mg Normal 11-26 [facility] Work Phone: Comment on above: PATIENT WAS FASTINGP ERFORMED BY: ORTIZ Ameya Xwqzsv7476 [facility] [id number] MICROALBUMINOrdered By: [employer] em Media Production Manager on 06-26-2014 Albumin DL <= 20 mg/L mass conc (U) 12.3 ug/mL Normal 0.0-17.0 [facility] Work Phone: Comment on above: PATIENT WAS FASTINGP ERFORMED BY: ORTIZ [facility]Three [facility] Naisku6895 [facility] [id number] Albumin/Creatinine mass ratio (U) 7.0 {mg/g_creat} Normal 0.0-30.0 [facility] Work Phone: Comment on above: PATIENT WAS FASTINGP ERFORMED BY: Ameya Pgpumu9632 [facility] [id number] Creatinine mass conc (U) 176.5 mg/dL Normal 15.0-278.0 [facility] Work Phone: Comment on above: PATIENT WAS FASTINGP ERFORMED BY: [facility]enaThree [facility] Wrqlfg4399 [facility] [id number] TSH ([id number])Ordered By: [employer] Mediae m Media Production Manager on 06-26-2014 Thyrotropin Qn 1.220 {uIU/mL} Normal 0.450-4.50 0 [facility] Work Phone: Comment on above: PATIENT WAS FASTINGP ERFORMED BY: ORTIZ [facility] Nqkhge5903 [address] RoadDublin [place] [id number] URINALYSIS, W/ MICRO ([id number]) Ordered By: Executive Chairman on 06-26-2014 Appearance Nom (U) Clear Normal Compre hensive Internal Medicine Work Phone: Comment on above: PATIENT WAS FASTINGP ERFORMED BY: ORTIZ [facility] Suisur4972 [address] RoadDublin [place] [id number] Bilirubin Ql (U) Negative Normal Comprehe nsive Internal Medicine Work Phone: Comment on above: PATIENT WAS FASTINGP ERFORMED BY: ORTIZ [facility] Dpooqq8785 [address] RoadDublin [place] [id number] Color Nom (U) Yellow Normal Comprehensi ve Internal Medicine Work Phone: Comment on above: PATIENT WAS FASTINGP ERFORMED BY: ORTIZ [facility] Puklrb0654 [address] RoadDublin [place] [id number] Glucose Ql (U) Negative Normal Comprehens trupti Internal Medicine Work Phone: Comment on above: PATIENT WAS FASTINGP ERFORMED BY: ORTIZ [facility] Bqnpts5735 [address] RoadDublin [place] [id number] Hemoglobin Ql (U) Negative Normal Compreh ensive Internal Medicine Work Phone: Comment on above: PATIENT WAS FASTINGP ERFORMED BY: ORTIZ [facility] Awcskb5146 [address] RoadDublin [place] [id number] Ketones Ql (U) Negative Normal Comprehens trupti Internal Medicine Work Phone: Comment on above: PATIENT WAS FASTINGP ERFORMED BY: ORTIZ [facility] Fpsirc0364 [address] RoadDublin [place] [id number] Leukocyte esterase Test strip Ql (U) Negative Normal [facility] Work Phone: Comment on above: PATIENT WAS FASTINGP ERFORMED BY: ORTIZ [facility] Bqikyg1656 [address] RoadDublin [place] [id number] Microscopic observation LM Nom (Urine sed) See below: Normal [facility] Work Phone: Comment on above: Microscopic was derrick cated and was performed. PATIENT WAS FASTINGP ERFORMED BY: ORTIZ [facility] Dybotm3343 [address] RoadDublin [place] [id number] Microscopic observation LM Nom (Urine sed) MICRON Normal [facility] Work Phone: Comment on above: Microscopic follows if indicated. PATIENT WAS FASTINGP ERFORMED BY: ORTIZ [facility] Mnuljk3846 Rodriguez RoadDublin [place] [id number] Nitrite Ql (U) Negative Normal Comprehens trupti Internal Medicine Work Phone: Comment on above: PATIENT WAS FASTINGP ERFORMED BY: ORTIZ [facility] Flqagw5378 [address] RoadDublin [place] [id number] pH (U) 5.5 [pH] Normal 5.0-7.5 [facility] Work Phone: Comment on above: PATIENT WAS FASTINGP ERFORMED BY: ORTIZ [facility] Vbepyj4646 [address]z RoadDublin [place] [id number] Protein Ql (U) Negative Normal Comprehens trupti Internal Medicine Work Phone: Comment on above: PATIENT WAS FASTINGP ERFORMED BY: ORTIZ [facility] Bxfpep4309 [address] RoadDublin [place] [id number] Specific gravity Relative Density (U) 1.020 1 Normal 1.005-1.03 0 [facility] Work Phone: Comment on above: PATIENT WAS FASTINGP ERFORMED BY: [facility] Goyktg3324 [address] RoadDublin [place] [id number] Urobilinogen Test strip mass conc (U) 0.2 mg/dL Normal 0.0-1.9 Comprehensiv e Internal Medicine Work Phone: Comment on above: PATIENT WAS FASTINGP ERFORMED BY: [facility] Ueimss9623 [address] RoadDublin [place] [id number] Vitamin D Hydroxy (46152)Ord ered By: Executive Chairman on 06-26-2014 25-Hydroxyvitamin D2+25-Hydroxyvitamin D3 mass conc 38.9 ng/mL Normal 30.0-100.0 [facility] Work Phone: Comment on above: Vitamin D deficiency has been defined by the Tow ofMedicine and an Endocrine Society practice guideline as alevel of serum 25-OH vitamin D less than 20 ng/mL (1,2).The Endocrine Society went on to further define vitamin Dinsufficiency as a level between 21 and 29 ng/mL (2).1. IOM (Tow of Medicine). 2010. Dietary reference intakes for calcium and D. [place]: The National Academies Press.2. Allie MF, Emile PONCE, Natalie POOLE, et al. Evaluation, treatment, and prevention of vitamin D deficiency: an Endocrine Society clinical practice guideline. JCEM. 2010; 96(7):1911-30. PATIENT WAS FASTINGP ERFORMED BY: [employer] LabAvanir Pharmaceuticals Kesjaj7[address] MEI Pharmablin [place] [id number] URINE IBRAHIMA CULTURE-IDENTIFICA [place] (44375)Ordered By: Executive Chairman on 04-17-2014 Bacteria identified Cx Nom (U) Escherichia coli Abnormal [facility] Work Phone: Comment on above: Greater than 100,000 colony forming units per mL PATIENT NOT FASTINGP ERFORMED BY: CB [facility] Azjaeg0397 Rodriguez RoadDublin [place] [id number] Information: [id number] Bacteria identified Cx Nom (U) Final report Abnormal [facility] Work Phone: Comment on above: PATIENT NOT FASTINGP ERFORMED BY: [employer] [facility] Whmclr7667 Rodriguez RoadDublin [place] [id number] Information: [id number] Other Antibiotic [facility] mSpoke [facility] prehensive Internal Medicine Work Phone: Comment on above: S = Susceptibl e; I = Intermediate; R = Resistant P = Positive; N = Negative MICS are expressed in micrograms per mL Antibiotic RSLT#1 RSLT#2 RSLT#3 RSLT#4Amoxicillin/Clavulanic Acid SAmpicillin SCefepime SCeftriaxone SCefuroxime SCephalothin SCiprofloxacin SErtapenem SGentamicin SImipenem SLevofloxacin SNitrofurantoin SPiperacillin STetracycline STobramycin STrimethoprim/Sulfa S PATIENT NOT FASTINGP ERFORMED BY: CB LabPenelope's PurseInelme8013 [facility] [id number] Information: [id number] Urinalysis, Office (62968)Or dered By: Alyson Dixon on 04-17-2014 Bilirubin [...] Medicine Work Phone: CBC WITH MANUAL DIFF (79259) Ordered By: Executive Chairman on 04-06-2014 Basophils #/vol (Bld) 0.0 {x10E3/uL} Normal 0.0-0.2 [facility] Work Phone: Comment on above: PATIENT NOT FASTINGP ERFORMED BY: mobifriendsrp Omcqgs0576 [facility] [id number] Information: [id number] Basophils/100 WBC (Bld) 0 % Normal 0-3 [facility] Work Phone: Comment on above: PATIENT NOT FASTINGP ERFORMED BY: mobifriendsrp Kicoko4619 [facility] [id number] Information: [id number] Eosinophils #/vol (Bld) 0.1 {x10E3/uL} Normal 0.0-0.4 [facility] Work Phone: Comment on above: PATIENT NOT FASTINGP ERFORMED BY: ORTIZ Chester6370 [facility] [id number] Information: [id number] Eosinophils/100 WBC (Bld) 2 % Normal 0-5 [facility] Work Phone: Comment on above: PATIENT NOT FASTINGP ERFORMED BY: ORTIZ Robledo[address] [id number] Information: [id number] Erythrocyte distribution width Ratio (RBC) 13.5 % Normal 12.3-15.4 [facility] Work Phone: Comment on above: PATIENT NOT FASTINGP ERFORMED BY: ORTIZ [facility] Elrbma[address] [id number] Information: [id number] Hematocrit Volume Fraction (Bld) 38.1 % Normal 34.0-46.6 [facility] Work Phone: Comment on above: PATIENT NOT FASTINGP ERFORMED BY: ORTIZ Robledo[address] [id number] Information: [id number] Hemoglobin mass conc (Bld) 12.8 g/dL Normal 11.1-15.9 [facility] Work Phone: Comment on above: PATIENT NOT FASTINGP ERFORMED BY: ORTIZ Lab[address] [id number] Information: [id number] Immature granulocytes #/vol (Bld) 0.0 {x10E3/uL} Normal 0.0-0.1 [facility] Work Phone: Comment on above: PATIENT NOT FASTINGP ERFORMED BY: ORTIZ LabJames Ville 7594670 [facility] [id number] Information: [id number] Immature granulocytes/100 WBC (Bld) 0 % Normal 0-2 [facility] Work Phone: Comment on above: PATIENT NOT FASTINGP ERFORMED BY: [facility]6370 [facility] [id number] Information: [id number] Lymphocytes #/vol (Bld) 1.5 {x10E3/uL} Normal 0.7-3.1 [facility] Work Phone: Comment on above: PATIENT NOT FASTINGP ERFORMED BY: [address] [id number] Information: [id number] Lymphocytes/100 WBC (Bld) 26 % Normal 14-46 [facility] Work Phone: Comment on above: PATIENT NOT FASTINGP ERFORMED BY: [address] [id number] Information: [id number] MCH Entitic mass (RBC) 31.1 pg Normal 26.6-33.0 [facility] Internal Medicine Work Phone: Comment on above: PATIENT NOT FASTINGP ERFORMED BY: [place] 6512270 [facility] [id number] Information: [id number] MCHC mass conc (RBC) 33.6 g/dL Normal 31.5-35.7 [facility] Internal Medicine Work Phone: Comment on above: PATIENT NOT FASTINGP ERFORMED BY: [address] [id number] Information: [id number] MCV Entitic volume (RBC) 93 fL Normal 79-97 [facility] Internal Medicine Work Phone: Comment on above: PATIENT NOT FASTINGP ERFORMED BY: LabCorewell Health [facility]eland Hospital6370 [facility] [id number] Information: [id number] Monocytes #/vol (Bld) 0.5 {x10E3/uL} Normal 0.1-0.9 [facility] Work Phone: Comment on above: PATIENT NOT FASTINGP ERFORMED BY: ORTIZ Chester6370 [facility] [id number] Information: [id number] Monocytes/100 WBC (Bld) 9 % Normal 4-12 [facility] Work Phone: Comment on above: PATIENT NOT FASTINGP ERFORMED BY: ORTIZ Crowelin6370 [facility] [id number] Information: [id number] Neutrophils #/vol (Bld) 3.5 {x10E3/uL} Normal 1.4-7.0 [facility] Work Phone: Comment on above: PATIENT NOT FASTINGP ERFORMED BY: ORTIZ Chester6370 [facility] [id number] Information: [id number] Neutrophils/100 WBC (Bld) 63 % Normal 40-74 [facility] Work Phone: Comment on above: PATIENT NOT FASTINGP ERFORMED BY: ORTIZ Hou Jrztys0358 [facility] [id number] Information: [id number] Platelets #/vol (Bld) 193 {x10E3/uL} Normal 150-379 [facility] Work Phone: Comment on above: PATIENT NOT FASTINGP ERFORMED BY: ORTIZ Hou Krlgwz8502 [facility] [id number] Information: [id number] RBC #/vol (Bld) 4.12 {x10E6/uL} Normal 3.77-5.28 [facility] Internal Medicine Work Phone: Comment on above: PATIENT NOT FASTINGP ERFORMED BY: ORTIZ Hou Cteclc8253 [facility] [id number] Information: [id number] WBC #/vol (Bld) 5.6 {x10E3/uL} Normal 3.4-10.8 [facility] Internal Medicine Work Phone: Comment on above: PATIENT NOT FASTINGP ERFORMED BY: ORTIZ [facility] Zbnren5265 [address] RoadDublin [place] [id number] Information: [id number] LIPID PANEL (76481)Ordered B y: Executive Chairman on 04-06-2014 Cholesterol in HDL mass conc 54 mg/dL Normal [facility] Work Phone: Comment on above: According to ATP-III Guidelines, HDL-C >59 mg/dL is considered anegative risk factor for CHD. PATIENT NOT FASTINGP ERFORMED BY: CB [facility] Mxtsoi1953 [address] RoadDublin [place] [id number] Cholesterol in LDL mass conc 63 mg/dL Normal 0-99 [facility] Work Phone: Comment on above: PATIENT NOT FASTINGP ERFORMED BY: ORTIZ [facility] Xagmci0162 [address] RoadDublin [place] [id number] Cholesterol in LDL/Cholesterol in HDL mass ratio 1.2 {ratio_units} Normal 0.0-3.2 [facility] Work Phone: Comment on above: PATIENT NOT FASTINGP ERFORMED BY: CB [facility] Woyues9284 [address] RoadDublin [place] [id number] Cholesterol in VLDL mass conc 41 mg/dL Abnormal 5-40 [facility] Work Phone: Comment on above: PATIENT NOT FASTINGP ERFORMED BY: ORTIZ [facility] Zinnsb4363 [address] RoadDublin [place] [id number] Cholesterol mass conc 158 mg/dL Normal 100-199 Com prehensive Internal Medicine Work Phone: Comment on above: PATIENT NOT FASTINGP ERFORMED BY: CB [facility] Shlivi7365 [address] RoadDublin [place] [id number] Triglyceride mass conc 206 mg/dL Abnormal 0-149 Co [facility] centerensive Internal Medicine Work Phone: Comment on above: PATIENT NOT FASTINGP ERFORMED BY: CB [facility] Jxmiix1574 [address] RoadDublin [place] [id number] METABOLIC PANEL, COMPREHENSI VE (72835)Ordered By: Executive Chairman on 04-06-2014 Albumin mass conc 4.3 g/dL Normal 3.5-4.8 Compreh ensive Internal Medicine Work Phone: Comment on above: PATIENT NOT FASTINGP ERFORMED BY: ORTIZ LabCoaustyn ChesterDnwsfb60[address] [facility] [id number] Albumin/Globulin mass ratio 2.2 {ratio} Normal 1.1-2.5 [facility] Work Phone: Comment on above: PATIENT NOT FASTINGP ERFORMED BY: ORTIZ [facility] Vijywr1859 [facility] [id number] ALP enzyme act/vol 87 [iU]/L Normal 39-117 Compre [facility] Internal Medicine Work Phone: Comment on above: PATIENT NOT FASTINGP ERFORMED BY: ORTIZ LabCo Wwpcfz6975 [facility] [id number] ALT enzyme act/vol 14 [iU]/L Normal 0-32 Compre [facility] Internal Medicine Work Phone: Comment on above: PATIENT NOT FASTINGP ERFORMED BY: ORTIZ LabCo Wvggdw0609 [facility] [id number] AST enzyme act/vol 18 [iU]/L Normal 0-40 [facility] Internal Medicine Work Phone: Comment on above: PATIENT NOT FASTINGP ERFORMED BY: ORTIZ Hou Knvltz2269 [facility] [id number] Bilirubin mass conc 0.3 mg/dL Normal 0.0-1.2 Compr [facility] Internal Medicine Work Phone: Comment on above: PATIENT NOT FASTINGP ERFORMED BY: ORTIZ Lab[facility] Hzjpnl0337 [facility] [id number] Calcium mass conc 10.0 mg/dL Normal 8.6-10.2 Compreh [facility] servicesive Internal Medicine Work Phone: Comment on above: PATIENT NOT FASTINGP ERFORMED BY: ORTIZ [facility] Pawxxf7804 [facility] [id number] Chloride molar conc 101 mmol/L Normal 97-108 Compr ensive Internal Medicine Work Phone: Comment on above: PATIENT NOT FASTINGP ERFORMED BY: LabCo Dgxkbh9334 [address] [facility]in [place] [id number] CO2 molar conc 28 mmol/L Normal 18-29 Comprehens trupti Internal Medicine Work Phone: Comment on above: PATIENT NOT FASTINGP ERFORMED BY: ORTIZ [facility] Giwexa9867 [address] [facility] [id number] Creatinine mass conc 0.73 mg/dL Normal 0.57-1.00 Comp rehensive Internal Medicine Work Phone: Comment on above: PATIENT NOT FASTINGP ERFORMED BY: LabCo Yeavnk6070 [facility] [id number] GFR/1.73 sq M predicted among blacks CKD-EPI vol rate/area (S/P/Bld) 94 mL/min/1.73 Normal [facility] Work Phone: Comment on above: PATIENT NOT FASTINGP ERFORMED BY: [facility] Gxhpul7124 [facility] [id number] GFR/1.73 sq M predicted among non-blacks CKD-EPI vol rate/area (S/P/Bld) 81 mL/min/1.73 Normal Comprehensiv e Internal Medicine Work Phone: Comment on above: PATIENT NOT FASTINGP ERFORMED BY: LabKellie Qupwxt3955 [facility] [id number] Globulin mass conc (S) 2.0 g/dL Normal 1.5-4.5 Co mprehensive Internal Medicine Work Phone: Comment on above: PATIENT NOT FASTINGP ERFORMED BY: LabCo Nwtuzr0359 [facility] [place] [id number] Glucose mass conc 87 mg/dL Normal 65-99 Compreh ensive Internal Medicine Work Phone: Comment on above: PATIENT NOT FASTINGP ERFORMED BY: LabCo Efrlvv4592 [facility] [id number] Potassium molar conc 5.0 mmol/L Normal 3.5-5.2 Comp rehensive Internal Medicine Work Phone: Comment on above: PATIENT NOT FASTINGP ERFORMED BY: ORTIZ [facility] Gbtjzu1656 [address] RoadDublin [place] [id number] Protein mass conc 6.3 g/dL Normal 6.0-8.5 Compreh ensive Internal Medicine Work Phone: Comment on above: PATIENT NOT FASTINGP ERFORMED BY: CB [facility] Shjsyh4879 Rodriguez RoadDublin [place] [id number] Sodium molar conc 142 mmol/L Normal 134-144 Compreh ensive Internal Medicine Work Phone: Comment on above: PATIENT NOT FASTINGP ERFORMED BY: CB [facility] Dptxky0478 [address] RoadDublin [place] [id number] Urea nitrogen mass conc 12 mg/dL Normal 8-27 [facility] Work Phone: Comment on above: PATIENT NOT FASTINGP ERFORMED BY: CB [facility] Mvzanl9106 [address] RoadDublin [place] [id number] Urea nitrogen/Creatinine mass ratio 16 mg/mg Normal 11-26 [facility] Work Phone: Comment on above: PATIENT NOT FASTINGP ERFORMED BY: CB [facility] Uksjhi0297 [address] RoadDublin [place] [id number] TSH (04407)Ordered By: Samantha m Media Production Manager on 04-06-2014 Thyrotropin Qn 0.748 {uIU/mL} Normal 0.450-4.50 0 [facility] Work Phone: Comment on above: PATIENT NOT FASTINGP ERFORMED BY: CB [facility] Kuwcro4119 [address] RoadDublin [place] [id number] Vitamin D Hydroxy (59429)Ord ered By: Executive Chairman on 04-06-2014 25-Hydroxyvitamin D2+25-Hydroxyvitamin D3 mass conc 29.5 ng/mL Abnormal 30.0-100.0 [facility] Work Phone: Comment on above: Vitamin D deficiency has been defined by the Tow ofMedicine and an Endocrine Society practice guideline as alevel of serum 25-OH vitamin D less than 20 ng/mL (1,2).The Endocrine Society went on to further define vitamin Dinsufficiency as a level between 21 and 29 ng/mL (2).1. IOM (Tow of Medicine). 2010. Dietary reference intakes for calcium and D. [place]: The National Academies Press.2. Allie MF, Emile PONCE, Natalie POOLE, et al. Evaluation, treatment, and prevention of vitamin D deficiency: an Endocrine Society clinical practice guideline. JCEM. 2010; 96(7):1911-30. PATIENT NOT FASTINGP ERFORMED BY: CB [facility] Hwwrgq7087 [address] [facility] Hospitalblin [place] [id number] CBC WITH MANUAL DIFF (43429) Ordered By: Executive Chairman on 12-22-2013 Basophils #/vol (Bld) 0.0 {x10E3/uL} Normal 0.0-0.2 [facility] Work Phone: Comment on above: PATIENT NOT FASTINGP ERFORMED BY: CB [facility] Tsaseq8575 Rodriguez RoadDublin [place] [id number] Information: [id number], [id number] Basophils/100 WBC (Bld) 0 % Normal 0-3 [facility] Work Phone: Comment on above: PATIENT NOT FASTINGP ERFORMED BY: CB [facility] Zlqbat1472 [address] RoadDublin [place] [id number] Information: [id number], [id number] Eosinophils #/vol (Bld) 0.1 {x10E3/uL} Normal 0.0-0.4 [facility] Work Phone: Comment on above: PATIENT NOT FASTINGP ERFORMED BY: CB [facility] Pjpsrx0000 Rodriguez RoadDublin [place] [id number] Information: [id number], [id number] Eosinophils/100 WBC (Bld) 2 % Normal 0-5 [facility] Work Phone: Comment on above: PATIENT NOT FASTINGP ERFORMED BY: CB [facility] Mtgrqj9326 [address] [facility] AlmaDublin [place] [id number] Information: [id number], 084508 Erythrocyte distribution width Ratio (RBC) 13.7 % Normal 12.3-15.4 [facility] Work Phone: Comment on above: PATIENT NOT FASTINGP ERFORMED BY: ORTIZ RobledoCoaustyn CroweTfxrit1655 [facility] [id number] Information: [id number] Hematocrit Volume Fraction (Bld) 38.4 % Normal 34.0-46.6 [facility] Work Phone: Comment on above: PATIENT NOT FASTINGP ERFORMED BY: ORTIZ RobledoCo Amjwtn7448 [facility] [id number] Information: [id number] [id number] Hemoglobin mass conc (Bld) 12.8 g/dL Normal 11.1-15.9 [facility] Work Phone: Comment on above: PATIENT NOT FASTINGP ERFORMED BY: ORTIZ RobledoCoaustyn CroweUcvbmo2538 [facility] [id number] Information: [id number], [id number] Immature granulocytes #/vol (Bld) 0.0 {x10E3/uL} Normal 0.0-0.1 [facility] Work Phone: Comment on above: PATIENT NOT FASTINGP ERFORMED BY: ORTIZ RobledoCo Xiedcz3605 [facility] [id number] Information: [id number], [id number] Immature granulocytes/100 WBC (Bld) 0 % Normal 0-2 [facility] Work Phone: Comment on above: PATIENT NOT FASTINGP ERFORMED BY: ORTIZ RobledoCo Icqcqo6331 [facility] [id number] Information: [id number], [id number] Lymphocytes #/vol (Bld) 1.1 {x10E3/uL} Normal 0.7-3.1 [facility] Work Phone: Comment on above: PATIENT NOT FASTINGP ERFORMED BY: ORTIZ [facility] Dmhhsj2956 [facility] [id number] Information: [id number], [id number] Lymphocytes/100 WBC (Bld) 22 % Normal 14-46 [facility] Work Phone: Comment on above: PATIENT NOT FASTINGP ERFORMED BY: ORTIZ LabCoSaint Barnabas Behavioral Health CenterIsjwog2795 [facility] [id number] Information: [id number], 157845 MCH Entitic mass (RBC) 30.6 pg Normal 26.6-33.0 [facility] Internal Medicine Work Phone: Comment on above: PATIENT NOT FASTINGP ERFORMED BY: [facility] CampusCoSaint Barnabas Behavioral Health CenterGrxkvd6159 [facility] [id number] Information: [id number], [id number] MCHC mass conc (RBC) 33.3 g/dL Normal 31.5-35.7 [facility] Internal Medicine Work Phone: Comment on above: PATIENT NOT FASTINGP ERFORMED BY: [facility]6370 [facility] [id number] Information: [id number], 417591 MCV Entitic volume (RBC) 92 fL Normal 79-97 [facility] Work Phone: Comment on above: PATIENT NOT FASTINGP ERFORMED BY: [facility]6370 [facility] [id number] Information: [id number], [id number] Monocytes #/vol (Bld) 0.4 {x10E3/uL} Normal 0.1-0.9 [facility] Work Phone: Comment on above: PATIENT NOT FASTINGP ERFORMED BY: [facility]6370 [facility] [id number] Information: [id number], 338124 Monocytes/100 WBC (Bld) 8 % Normal 4-12 [facility] Work Phone: Comment on above: PATIENT NOT FASTINGP ERFORMED BY: LabCorewell Health Zeeland Hospital6370 [facility] [id number] Information: [id number], 146182 Neutrophils #/vol (Bld) 3.3 {x10E3/uL} Normal 1.4-7.0 [facility] Work Phone: Comment on above: PATIENT NOT FASTINGP ERFORMED BY: LabJames Ville 7594670 [facility] [id number] Information: [id number], 089690 Neutrophils/100 WBC (Bld) 68 % Normal 40-74 [facility] Internal Medicine Work Phone: Comment on above: PATIENT NOT FASTINGP ERFORMED BY: ORTIZ RobledoCoaustyn ChesterIeuhru1143 [facility] [id number] Information: [id number], [id number] Platelets #/vol (Bld) 190 {x10E3/uL} Normal 155-379 [facility] Internal Medicine Work Phone: Comment on above: PATIENT NOT FASTINGP ERFORMED BY: ORTIZ LabCo Kgslic0875 [facility] [id number] Information: [id number], [id number] RBC #/vol (Bld) 4.18 {x10E6/uL} Normal 3.77-5.28 [facility] Internal Medicine Work Phone: Comment on above: PATIENT NOT FASTINGP ERFORMED BY: ORTIZ RobleodCo Iwkxfm9574 [facility] [id number] Information: [id number], [id number] WBC #/vol (Bld) 4.8 {x10E3/uL} Normal 3.4-10.8 [facility] Internal Medicine Work Phone: Comment on above: PATIENT NOT FASTINGP ERFORMED BY: ORTIZ LabCo Ahcsnq2243 [facility] [id number] Information: [id number], [id number] D-Dimer (06063)Ordered By: Dc keithte Media Production Manager on 12-22-2013 D-Dimer (07485) 0.40 {ug_FEU/mL} Normal 0.00-0.49 [facility] Internal Medicine Work Phone: Comment on above: In conjunction with a non-high clinical probability assessment, anormal (<0.50 ug FEU/mL) result excludes deep vein thrombosis (DVT)and pulmonary embolism (PE) with high sensitivity. PATIENT NOT FASTINGP ERFORMED BY: CB LabCo Skpvlv2682 [facility] [id number] PT (Prothrobim Time) (81147) Ordered By: Executive Chairman on 12-22-2013 INR Coag RelTime (PPP) 1.0 {INR} Normal 0.8-1.2 [facility] Internal Medicine Work Phone: Comment on above: Reference interval i s for non-anticoagulated patients. . Suggested INR therapeutic range for Vitamin K antagonist therapy: Standard Dose (moderate intensity therapeutic range): 2.0 - 3.0 Higher intensity therapeutic range 2.5 - 3.5 PATIENT NOT FASTINGP ERFORMED BY: CInergy International UKCorewell Health Zeeland Hospital[address] [employer], Tu Tienda OnlineCarolinas ContinueCARE [facility] [id number] Prothrombin time (PT) Coag time (PPP) 10.6 {sec} Normal 9.1-12.0 [facility] Internal Medicine Work Phone: Comment on above: PATIENT NOT FASTINGP ERFORMED BY: Nov[facility] LaboratoriesWinslow Indian Health Care CenterSjxbwx3321 [place] [employer], Tu Tienda OnlineCarolinas ContinueCARE [facility] [id number] PTT (Activated Partial Throm boplastin Time) (30965)Ordered By: Executive Chairman on 12-22-2013 aPTT Coag time (PPP) 26 {sec} Normal 24-33 [facility] Internal Medicine Work Phone: Comment on above: This test has not be en validated for monitoring unfractionated heparintherapy. aPTT-based therapeutic ranges for unfractionated heparintherapy have not been established. For general guidelines onHeparin monitoring, refer to the [facility] Directory of Services. PATIENT NOT FASTINGP ERFORMED BY: [facility] LaboratoriesSaint Barnabas Behavioral Health CenterIeooqy5859 [facility] [id number] MICROALBUMINOrdered By: Syst em Media Production Manager on 12-05-2013 Albumin DL <= 20 mg/L mass conc (U) 23.2 ug/mL Abnormal 0.0-17.0 [facility] Work Phone: Comment on above: PATIENT NOT FASTINGP ERFORMED BY: CInergy International UKCorewell Health Zeeland Hospital6370 [facility] [id number] Albumin/Creatinine mass ratio (U) 14.1 {mg/g_creat} Normal 0.0-30.0 [facility] Work Phone: Comment on above: PATIENT NOT FASTINGP ERFORMED BY: ORTIZ MeenaAleksandr CroweYsfweq4040 [address] [facility] [id number] Creatinine mass conc (U) 164.8 mg/dL Normal 15.0-278.0 [facility] Work Phone: Comment on above: PATIENT NOT FASTINGP ERFORMED BY: ORTIZ MeenaAleksandr CroweFdwprc1074 [address] [facility] [id number] URINALYSIS, W/ MICRO ([id number]) Ordered By: Executive Chairman on 12-05-2013 Appearance Nom (U) Cloudy Abnormal Compre hensive Internal Medicine Work Phone: Comment on above: PATIENT NOT FASTINGP ERFORMED BY: ORTIZ Crowelin6370 [address] [facility] [id number] Information: [id number] Bilirubin Ql (U) Negative Normal Comprehe nsive Internal Medicine Work Phone: Comment on above: PATIENT NOT FASTINGP ERFORMED BY: ORTIZ Crowelin6370 [address] [facility] [id number] Information: [id number] Color Nom (U) Yellow Normal Comprehensi ve Internal Medicine Work Phone: Comment on above: PATIENT NOT FASTINGP ERFORMED BY: ORTIZ Crowelin6370 [facility] [id number] Information: [id number] Glucose Ql (U) Negative Normal Comprehens trupti Internal Medicine Work Phone: Comment on above: PATIENT NOT FASTINGP ERFORMED BY: ORTIZ Crowelin6370 [address] [facility] [id number] Information: [id number] Hemoglobin Ql (U) Negative Normal Compreh ensive Internal Medicine Work Phone: Comment on above: PATIENT NOT FASTINGP ERFORMED BY: ORTIZ MeenaAleksandr CroweMbjekb5270 [address] [facility] [id number] Information: [id number] Ketones Ql (U) Negative Normal Comprehens trupti Internal Medicine Work Phone: Comment on above: PATIENT NOT FASTINGP ERFORMED BY: ORTIZ Munguia Grrspl2245 Rodriguez RoadAtrium Health University Cityin [place] [id number] Information: [id number] Leukocyte esterase Test strip Ql (U) Negative Normal [facility] Work Phone: Comment on above: PATIENT NOT FASTINGP ERFORMED BY: ORTIZ Crowelin6370 Rodriguez RoadDublin [place] [id number] Information: [id number] Microscopic observation LM Nom (Urine sed) See below: Normal [facility] Work Phone: Comment on above: PATIENT NOT FASTINGP ERFORMED BY: ORTIZ MeenaCorp Idiotm6563 Rodriguez Roadblin [place] [id number] Information: H32148 Microscopic observation LM Nom (Urine sed) MICRON Normal [facility] Work Phone: Comment on above: Microscopic follows if indicated. PATIENT NOT FASTINGP ERFORMED BY: ORTIZ Nilda Hrnedg2128 Rodriguez RoadCarolinas ContinueCARE Hospital [facility] [id number] Information: [id number] Nitrite Ql (U) Negative Normal Comprehens trupti Internal Medicine Work Phone: Comment on above: PATIENT NOT FASTINGP ERFORMED BY: ORTIZ MeenaCo Gevgds9318 [address] [facility] [id number] Information: [id number] pH (U) 5.0 [pH] Normal 5.0-7.5 [facility] Work Phone: Comment on above: PATIENT NOT FASTINGP ERFORMED BY: ORTIZ Ameyarp Tcxfwd4992 [address] [facility] [id number] Information: [id number] Protein Ql (U) Negative Normal Comprehens trupti Internal Medicine Work Phone: Comment on above: PATIENT NOT FASTINGP ERFORMED BY: ORTIZ MeenaCorp Gfvlha0273 Rodriguez [facility] [place] [id number] Information: [id number] Specific gravity Relative Density (U) 1.017 1 Normal 1.005-1.03 0 [facility] Work Phone: Comment on above: PATIENT NOT FASTINGP ERFORMED BY: ORTIZ [facility] Hkqwaf1415 Rodriguez [facility] [place] [id number] Information: [id number] Urobilinogen Test strip mass conc (U) 0.2 mg/dL Normal 0.0-1.9 Comprehensiv e Internal Medicine Work Phone: Comment on above: PATIENT NOT FASTINGP ERFORMED BY: ORTIZ [address] [id number] Information: [id number] CBC WITH MANUAL DIFF (26908) Ordered By: Executive Chairman on 12-01-2013 Basophils #/vol (Bld) 0.0 {x10E3/uL} Normal 0.0-0.2 [facility] Work Phone: Comment on above: PATIENT WAS FASTINGP ERFORMED BY: ORTIZ [place] 6203470 [facility] [id number] Information: [id number],[id number] Basophils/100 WBC (Bld) 0 % Normal 0-3 [facility] Work Phone: Comment on above: PATIENT WAS FASTINGP ERFORMED BY: [address] [id number] Information: [id number] Eosinophils #/vol (Bld) 0.1 {x10E3/uL} Normal 0.0-0.4 [facility] Work Phone: Comment on above: PATIENT WAS FASTINGP ERFORMED BY: [place] 6512270 [facility] [id number] Information: [id number] Eosinophils/100 WBC (Bld) 1 % Normal 0-5 [facility] Work Phone: Comment on above: PATIENT WAS FASTINGP ERFORMED BY: [address] [id number] Information: [id number] Erythrocyte distribution width Ratio (RBC) 13.5 % Normal 12.3-15.4 [facility] Work Phone: Comment on above: PATIENT WAS FASTINGP ERFORMED BY: [address] StreetDublin [place] [id number] Information: 135439,[id number] Hematocrit Volume Fraction (Bld) 40.8 % Normal 34.0-46.6 [facility] Work Phone: Comment on above: PATIENT WAS FASTINGP ERFORMED BY: [place] 6512270 [facility] [id number] Information: [id number] Hemoglobin mass conc (Bld) 13.2 g/dL Normal 11.1-15.9 [facility] Work Phone: Comment on above: PATIENT WAS FASTINGP ERFORMED BY: [address] [id number] Information: [id number],[id number] Immature granulocytes #/vol (Bld) 0.0 {x10E3/uL} Normal 0.0-0.1 [facility] Work Phone: Comment on above: PATIENT WAS FASTINGP ERFORMED BY: [place] 6512270 [facility] [id number] Information: [id number] Immature granulocytes/100 WBC (Bld) 0 % Normal 0-2 [facility] Work Phone: Comment on above: PATIENT WAS FASTINGP ERFORMED BY: [place] 6512270 [facility] [id number] Information: [id number] Lymphocytes #/vol (Bld) 1.4 {x10E3/uL} Normal 0.7-3.1 [facility] Work Phone: Comment on above: PATIENT WAS FASTINGP ERFORMED BY: [place] 6512270 [facility] [id number] Information: 337359,[id number] Lymphocytes/100 WBC (Bld) 18 % Normal 14-46 [facility] Work Phone: Comment on above: PATIENT WAS FASTINGP ERFORMED BY: [place] 6512270 [facility] [id number] Information: [id number] MCH Entitic mass (RBC) 30.1 pg Normal 26.6-33.0 [facility] Internal Medicine Work Phone: Comment on above: PATIENT WAS FASTINGP ERFORMED BY: [facility]6370 [facility] [id number] Information: [id number] MCHC mass conc (RBC) 32.4 g/dL Normal 31.5-35.7 [facility] Internal Medicine Work Phone: Comment on above: PATIENT WAS FASTINGP ERFORMED BY: [place] 6512270 [facility] [id number] Information: [id number] MCV Entitic volume (RBC) 93 fL Normal 79-97 [facility] Internal Medicine Work Phone: Comment on above: PATIENT WAS FASTINGP ERFORMED BY: [address] [id number] Information: [id number] Monocytes #/vol (Bld) 0.6 {x10E3/uL} Normal 0.1-0.9 [facility] Work Phone: Comment on above: PATIENT WAS FASTINGP ERFORMED BY: [place] 6512270 [facility] [id number] Information: [id number] Monocytes/100 WBC (Bld) 7 % Normal 4-12 [facility] Work Phone: Comment on above: PATIENT WAS FASTINGP ERFORMED BY: [facility]Core[facility]6370 [facility] [id number] Information: [id number] Neutrophils #/vol (Bld) 5.9 {x10E3/uL} Normal 1.4-7.0 [facility] Work Phone: Comment on above: PATIENT WAS FASTINGP ERFORMED BY: [place] 6512270 [facility] [id number] Information: 207126,[id number] Neutrophils/100 WBC (Bld) 74 % Normal 40-74 [facility] Work Phone: Comment on above: PATIENT WAS FASTINGP ERFORMED BY: ORTIZ [place]6370 [facility] [id number] Information: [id number] Platelets #/vol (Bld) 225 {x10E3/uL} Normal 155-379 [facility] Work Phone: Comment on above: PATIENT WAS FASTINGP ERFORMED BY: [facility] Cecdaz6646 [facility] [id number] Information: [id number] RBC #/vol (Bld) 4.38 {x10E6/uL} Normal 3.77-5.28 [facility] Internal Medicine Work Phone: Comment on above: PATIENT WAS FASTINGP ERFORMED BY: [facility] Brrvbj5677 [facility] [id number] Information: [id number] WBC #/vol (Bld) 8.0 {x10E3/uL} Normal 3.4-10.8 [facility] Internal Medicine Work Phone: Comment on above: PATIENT WAS FASTINGP ERFORMED BY: ORTIZ Hou Hoemup5869 [facility] [id number] Information: [id number] LIPID PANEL (43742)Ordered B y: Executive Chairman on 12-01-2013 Cholesterol in HDL mass conc 47 mg/dL Normal [facility] Work Phone: Comment on above: According to ATP-III Guidelines, HDL-C >59 mg/dL is considered anegative risk factor for CHD. PATIENT WAS FASTINGP ERFORMED BY: ORTIZ [facility]oThree [facility] Ydwipk5016 [facility] [id number] Cholesterol in LDL mass conc 50 mg/dL Normal 0-99 [facility] Work Phone: Comment on above: PATIENT WAS FASTINGP ERFORMED BY: [facility]6370 [facility] [id number] Cholesterol in LDL/Cholesterol in HDL mass ratio 1.1 {ratio_units} Normal 0.0-3.2 [facility] Work Phone: Comment on above: PATIENT WAS FASTINGP ERFORMED BY: ORTIZ [facility] Hospitalaustyn Qvaotm6306 [facility] [id number] Cholesterol in VLDL mass conc 35 mg/dL Normal 5-40 [facility] Work Phone: Comment on above: PATIENT WAS FASTINGP ERFORMED BY: ORTIZ [facility] Kldgid0945 [facility] [id number] Cholesterol mass conc 132 mg/dL Normal 100-199 Com prehensive Internal Medicine Work Phone: Comment on above: PATIENT WAS FASTINGP ERFORMED BY: ORTIZ RobledoKyaustyn CroweZmbagv4909 [facility] [id number] Triglyceride mass conc 177 mg/dL Abnormal 0-149 Co [facility] centerensive Internal Medicine Work Phone: Comment on above: PATIENT WAS FASTINGP ERFORMED BY: ORTIZ [place] 6203470 [facility] [id number] Lab Report: Ordered by Dr. Saritha delgado 12-01-2013 Alanine aminotransferase (ALT) 10 U/L Invalid Interpretation Code [facility] Work Phone: Alkaline phosphatase (ALP) 76 U/L Invalid Interpretation Code [facility] Work Phone: Aspartate aminotransferase (AST) 13 U/L Invalid Interpretation Code [facility] Work Phone: METABOLIC PANEL, COMPREHENSI VE (99624)Ordered By: Executive Chairman on 12-01-2013 Albumin mass conc 4.5 g/dL Normal 3.5-4.8 Compreh ensive Internal Medicine Work Phone: Comment on above: PATIENT WAS FASTINGP ERFORMED BY: ORTIZ LabJames Ville 7594670 [facility] [id number] Albumin/Globulin mass ratio 2.1 {ratio} Normal 1.1-2.5 [facility] Work Phone: Comment on above: PATIENT WAS FASTINGP ERFORMED BY: ORTIZ [facility] Bicwue9957 Rodriguez RoadDublin [place] [id number] ALP enzyme act/vol 76 [iU]/L Normal 39-117 [facility] Work Phone: Comment on above: PATIENT WAS FASTINGP ERFORMED BY: [facility] Segntc7190 Rodriguez RoadDublin [place] [id number] ALT enzyme act/vol 10 [iU]/L Normal 0-32 [facility] Work Phone: Comment on above: PATIENT WAS FASTINGP ERFORMED BY: [facility] Tivipc7723 Rodriguez RoadDublin [place] [id number] AST enzyme act/vol 13 [iU]/L Normal 0-40 [facility] Internal Medicine Work Phone: Comment on above: PATIENT WAS FASTINGP ERFORMED BY: [facility] Bvsvjv7089 Rodriguez RoadDublin [place] [id number] Bilirubin mass conc 0.3 mg/dL Normal 0.0-1.2 [facility] Work Phone: Comment on above: PATIENT WAS FASTINGP ERFORMED BY: [facility] Yxtvug8175 Rodriguez RoadDublin [place] [id number] Calcium mass conc 9.9 mg/dL Normal 8.6-10.2 Compreh [facility] servicesive Internal Medicine Work Phone: Comment on above: PATIENT WAS FASTINGP ERFORMED BY: [facility] Dpfxls0582 Rodriguez RoadDublin [place] [id number] Chloride molar conc 101 mmol/L Normal 97-108 Compr ensive Internal Medicine Work Phone: Comment on above: PATIENT WAS FASTINGP ERFORMED BY: [facility] Kdygas9774 Rodriguez RoadDublin [place] [id number] CO2 molar conc 27 mmol/L Normal 19-28 [facility]prehjefferson health northeaste Internal Medicine Work Phone: Comment on above: PATIENT WAS FASTINGP ERFORMED BY: [facility] Owqfar1043 Rodriguez RoadDublin [place] [id number] Creatinine mass conc 0.97 mg/dL Normal 0.57-1.00 Comp [facility] centerensive Internal Medicine Work Phone: Comment on above: PATIENT WAS FASTINGP ERFORMED BY: ORTIZ [facility] Ujkrzm9583 Rodriguez [facility] [place] [id number] GFR/1.73 sq M predicted among blacks CKD-EPI vol rate/area (S/P/Bld) 67 mL/min/1.73 Normal [facility] Work Phone: Comment on above: PATIENT WAS FASTINGP ERFORMED BY: ORTIZ [facility] Mlliow5250 [address] [facility] [id number] GFR/1.73 sq M predicted among non-blacks CKD-EPI vol rate/area (S/P/Bld) 58 mL/min/1.73 Abnormal Comprehensiv e Internal Medicine Work Phone: Comment on above: PATIENT WAS FASTINGP ERFORMED BY: ORTIZ [facility] Elhpzk4987 [facility] [id number] Globulin mass conc (S) 2.1 g/dL Normal 1.5-4.5 Co [facility]erehensive [facility] Work Phone: Comment on above: PATIENT WAS FASTINGP ERFORMED BY: ORTIZ [facility] Gkjhhi6732 [facility] [id number] Glucose mass conc 99 mg/dL Normal 65-99 Compreh ensive Internal Medicine Work Phone: Comment on above: PATIENT WAS FASTINGP ERFORMED BY: [facility] Ucohee0611 [facility] [id number] Potassium molar conc 4.9 mmol/L Normal 3.5-5.2 Comp rehensive Internal Medicine Work Phone: Comment on above: PATIENT WAS FASTINGP ERFORMED BY: [facility] Nfhizs3231 [address] [facility]in [place] [id number] Protein mass conc 6.6 g/dL Normal 6.0-8.5 Compreh ensive Internal Medicine Work Phone: Comment on above: PATIENT WAS FASTINGP ERFORMED BY: [facility] Qjuvdi8376 [address] [facility] [id number] Sodium molar conc 141 mmol/L Normal 134-144 Compreh ensive Internal Medicine Work Phone: Comment on above: PATIENT WAS FASTINGP ERFORMED BY: [facility] Yvvvhx6347 [facility] [id number] Urea nitrogen mass conc 21 mg/dL Normal 8-27 [facility] Work Phone: Comment on above: PATIENT WAS FASTINGP ERFORMED BY: [facility] Spxeqa8437 Rodriguez [employer], Tu Tienda OnlineCarolinas ContinueCARE [facility] [id number] Urea nitrogen/Creatinine mass ratio 22 mg/mg Normal 11- [facility] Work Phone: Comment on above: PATIENT WAS FASTINGP ERFORMED BY: [facility] Xnatpb7502 [facility] [id number] TSH (57952)Ordered By: [employer] Production Manager on 12-01-2013 Thyrotropin Qn 1.040 {uIU/mL} Normal 0.450-4.50 0 [facility] Work Phone: Comment on above: PATIENT WAS FASTINGP ERFORMED BY: [facility] Kelmuk6451 [facility] [id number] URINE IBRAHIMA CULTURE (TY COL COUNT) (90772)Ordered By: Executive Chairman on 12-01-2013 Bacteria identified Cx Nom (U) Escherichia coli Normal [facility] Work Phone: Comment on above: Greater than 100,000 colony forming units per mL PATIENT NOT FASTINGP ERFORMED BY: [facility] Erimpo1702 [facility] [id number] Information: SRC:UR [id number] Bacteria identified Cx Nom (U) Final report Normal [facility] Work Phone: Comment on above: PATIENT NOT FASTINGP ERFORMED BY: [facility] Dnador8691 [facility] [id number] Information: SRC:UR E13793 Other Antibiotic [facility] [employer] prehensive Internal Medicine Work Phone: Comment on above: S = Susceptibl e; I = Intermediate; R = Resistant P = Positive; N = Negative MICS are expressed in micrograms per mL Antibiotic RSLT#1 RSLT#2 RSLT#3 RSLT#4Amoxicillin/Clavulanic Acid SAmpicillin SCefepime SCeftriaxone SCefuroxime SCephalothin SCiprofloxacin SErtapenem SGentamicin SImipenem SLevofloxacin SNitrofurantoin SPiperacillin STetracycline STobramycin STrimethoprim/Sulfa S PATIENT NOT FASTINGP ERFORMED BY: ORTIZ [facility] Qzxgtr2013 [address] RoadDublin [place] [id number] Information: SRC:UR E08033 Urinalysis, Office (46635)Or dered By: Jacinta Patel on 12-01-2013 Bilirubin [...] Internal Medicine Work Phone: Vitamin D Hydroxy (52643)Ord ered By: Executive Chairman on 12-01-2013 25-Hydroxyvitamin D2+25-Hydroxyvitamin D3 mass conc 38.9 ng/mL Normal 30.0-100.0 [facility] Work Phone: Comment on above: Vitamin D deficiency has been defined by the Tow ofMedicine and an Endocrine Society practice guideline as alevel of serum 25-OH vitamin D less than 20 ng/mL (1,2).The Endocrine Society went on to further define vitamin Dinsufficiency as a level between 21 and 29 ng/mL (2).1. IOM (Tow of Medicine). 2010. Dietary reference intakes for calcium and D. [place]: The National Academies Press.2. Allie MF, Emile NC, Natalie POOLE, et al. Evaluation, treatment, and prevention of vitamin D deficiency: an Endocrine Society clinical practice guideline. JCEM. 2010; 96(7):1911-30. PATIENT WAS FASTINGP ERFORMED BY: [employer] [place] [id number] Lab Report: PTon 04-19-2013 INR in blood by coagulation 1.0 {INR} Normal [facility] Work Phone: prothrombin time, actual/normal, ratio 12.8 SECONDS Normal 11.9-14.4 [facility] Work Phone: Lab Report: PTTon 04-19-2013 aPTT 29.8 s Normal 24.1-36.2 [facility] Work Phone: Replaced Document: Escobar ROMERO Observationson 04-19-2013 Pulse (Heart Rate) 421 ms Invalid Interpretation Code [facility] Work Phone: URINE IBRAHIMA CULTURE-TY COL C OUNT (46210)Ordered By: Executive Chairman on 04-18-2013 Bacteria identified Cx Nom (U) Final report Normal [facility] Work Phone: Comment on above: PATIENT NOT FASTINGP ERFORMED BY: [employer] [place] [id number] Information: SRC:UR A02069 Bacteria identified Cx Nom (U) NG36 Normal [facility] Work Phone: Comment on above: No growth in 36 - 48 hours. PATIENT NOT FASTINGP ERFORMED BY: Moneyspyder70 [place] [id number] Information: SRC:UR K98084 Urinalysis, Office (79215)Or dered By: Jacinta Patel on 04-15-2013 Bilirubin [...] [facility] Work Phone: Lab Report: SPIKE 02-05-20 13 Albumin 4.0 g/dL Normal 3.4-5.0 [facility] Work Phone: Bilirubin (direct) 0.12 mg/dL Normal 0.00-0.30 [facility] Work Phone: Bilirubin (total) 0.40 mg/dL Normal 0.00-1.00 [facility] Work Phone: URINE IBRAHIMA CULTURE (TY COL COUNT) (83587)Ordered By: Executive Chairman on 09-30-2012 Bacteria identified Cx Nom (U) Escherichia coli Normal [facility] Work Phone: Comment on above: Greater than 100,000 colony forming units per mL PATIENT NOT FASTINGP ERFORMED BY: ORTIZ [facility] Fshoee1273 [facility] [id number] Information: SRC:UR [id number] Bacteria identified Cx Nom (U) Final report Normal [facility] Work Phone: Comment on above: PATIENT NOT FASTINGP ERFORMED BY: ORTIZ [facility] Cjnwlr4026 Rodriguez RoadDublin [place] [id number] Information: SRC:UR B75897 Other Antibiotic [facility] prehensive Internal Medicine Work Phone: Comment on above: S = Susceptibl e; I = Intermediate; R = Resistant P = Positive; N = Negative MICS are expressed in micrograms per mL Antibiotic RSLT#1 RSLT#2 RSLT#3 RSLT#4Amoxicillin/Clavulanic Acid SAmpicillin SCefazolin SCefepime SCeftriaxone SCefuroxime SCephalothin SCiprofloxacin SESBL NErtapenem SGentamicin SImipenem SLevofloxacin SNitrofurantoin SPiperacillin STetracycline STobramycin STrimethoprim/Sulfa S PATIENT NOT FASTINGP ERFORMED BY: ORTIZ [facility] Zdoicb8045 Rodriguez RoadCarolinas ContinueCARE Hospital [facility] [id number] Information: SRC:UR Y51674 Urinalysis, Office (73440)Or dered By: Alyson Dixon on 09-30-2012 Bilirubin [...] Phone: Protein 6.7 g/dL Invalid Interpretation Code [facility] Work Phone: Alkaline Phosphatase (67406) Ordered By: Executive Chairman on 02-25-2012 ALP enzyme act/vol 67 [iU]/L Normal 25-165 Compre [facility] Internal Medicine Work Phone: Comment on above: PATIENT NOT FASTINGP ERFORMED BY: P2i6370 [facility] [id number] CALCIFIDIOL (33033) VIT D 25 Ordered By: Executive Chairman on 02-25-2012 25-Hydroxyvitamin D2+25-Hydroxyvitamin D3 mass conc 45.8 ng/mL Normal 30.0-100.0 [facility] Work Phone: Comment on above: Vitamin D deficiency has been defined by the Tow ofMedicine and an Endocrine Society practice guideline as alevel of serum 25-OH vitamin D less than 20 ng/mL (1,2).The Endocrine Society went on to further define vitamin Dinsufficiency as a level between 21 and 29 ng/mL (2).1. IOM (Tow of Medicine). 2010. Dietary reference intakes for calcium and D. [place]: The National Academies Press.2. Allie MF, Emile [place], Natalie POOLE, et al. Evaluation, treatment, and prevention of vitamin D deficiency: an Endocrine Society clinical practice guideline. JCEM. 2010; 96(7):1911-30. PATIENT NOT FASTINGP ERFORMED BY: [employer] Zvqguq1758 [facility] [id number] Information: [id number] Calcium Serum (32226)Ordered By: Executive Chairman on 02-25-2012 Calcium mass conc 9.3 mg/dL Normal 8.6-10.2 [facility]pre[facility] Internal [facility] Work Phone: Comment on above: PATIENT NOT FASTINGP ERFORMED BY: [employer] Fknmns9518 Rodriguez RoadDublin [place] [id number] Clinical Lists Update: Prelo nurse healthcare manager 02-16-2012 MCHC 34.6 % Invalid Interpretation Code [facility] Work Phone: CBC (AUTO) (07515)Ordered By : Executive Chairman on 10-14-2010 Erythrocyte distribution width Ratio (RBC) 13.5 % Normal 11.7-15.0 [facility] Work Phone: Comment on above: PATIENT NOT FASTINGP ERFORMED BY: CB [facility] Eluezu0051 Rodriguez RoadDublin [place] [id number] Hematocrit Volume Fraction (Bld) 40.4 % Normal 34.0-44.0 [facility] Work Phone: Comment on above: PATIENT NOT FASTINGP ERFORMED BY: CB [facility] Dsleki9359 Rodriguez RoadDublin [place] [id number] Hemoglobin mass conc (Bld) 13.7 g/dL Normal 11.5-15.0 [facility] Work Phone: Comment on above: PATIENT NOT FASTINGP ERFORMED BY: CB [facility] Xudkqt8176 Rodriguez RoadDublin [place] [id number] MCH Entitic mass (RBC) 29.5 pg Normal 27.0-34.0 [facility] Internal Medicine Work Phone: Comment on above: PATIENT NOT FASTINGP ERFORMED BY: CB [facility] Zkexmh3652 [address] RoadDublin [place] [id number] MCHC mass conc (RBC) 33.9 g/dL Normal 32.0-36.0 [facility] Internal Medicine Work Phone: Comment on above: PATIENT NOT FASTINGP ERFORMED BY: CB [facility] Sscxln9480 Rodriguez RoadDublin [place] [id number] MCV Entitic volume (RBC) 87 fL Normal 80-98 [facility] Work Phone: Comment on above: PATIENT NOT FASTINGP ERFORMED BY: CB [facility] Xnfbog2737 Rodriguez RoadDublin [place] [id number] Platelets #/vol (Bld) 280 {x10E3/uL} Normal 140-415 [facility] Work Phone: Comment on above: PATIENT NOT FASTINGP ERFORMED BY: ORTIZ Chester6370 [facility] [id number] RBC #/vol (Bld) 4.64 {x10E6/uL} Normal 3.80-5.10 Comp rehensive Internal Medicine Work Phone: Comment on above: PATIENT NOT FASTINGP ERFORMED BY: ORTIZ Hou Ijdcnc1457 [facility] [id number] WBC #/vol (Bld) 6.2 {x10E3/uL} Normal 4.0-10.5 Compr ensive Internal Medicine Work Phone: Comment on above: PATIENT NOT FASTINGP ERFORMED BY: ORTIZ Crowelin6370 [facility] [id number] METABOLIC PANEL, COMPREHENSI VE (53712)Ordered By: Executive Chairman on 10-14-2010 Albumin mass conc 4.4 g/dL Normal 3.5-4.8 Compreh [facility] Work Phone: Comment on above: PATIENT NOT FASTINGP ERFORMED BY: ORTIZ Crowelin6370 [facility] [id number] Information: [id number] Albumin/Globulin mass ratio 1.8 {ratio} Normal 1.1-2.5 [facility] Work Phone: Comment on above: PATIENT NOT FASTINGP ERFORMED BY: ORTIZ LabKellie Wzjzdg9745 [facility] [id number] Information: [id number] ALP enzyme act/vol 84 [iU]/L Normal 25-165 Compre [facility] Internal Medicine Work Phone: Comment on above: PATIENT NOT FASTINGP ERFORMED BY: ORTIZ Hou Kbcgtx5020 [facility] [id number] Information: [id number],[id number] ALT enzyme act/vol 13 [iU]/L Normal 0-40 Compre [facility] Internal Medicine Work Phone: Comment on above: PATIENT NOT FASTINGP ERFORMED BY: ORTIZ [facility] Bnmiyz1785 Rodriguez RoadDublin [place] [id number] Information: [id number] AST enzyme act/vol 13 [iU]/L Normal 0-40 Compre hensive Internal Medicine Work Phone: Comment on above: PATIENT NOT FASTINGP ERFORMED BY: CB [facility] Kcyycu1734 [address]blin [place] [id number] Information: 005150,[id number] Bilirubin mass conc 0.2 mg/dL Normal 0.0-1.2 Compr ehensive Internal Medicine Work Phone: Comment on above: PATIENT NOT FASTINGP ERFORMED BY: ORTIZ [facility] Reuqcg1010 [address] Roadblin [place] [id number] Information: [id number] Calcium mass conc 10.4 mg/dL Abnormal 8.6-10.2 Compreh ensive Internal Medicine Work Phone: Comment on above: PATIENT NOT FASTINGP ERFORMED BY: CB [facility] Naithz7620 Rodriguez RoadAtrium Health University Cityin [place] [id number] Information: 496691,[id number] Chloride molar conc 101 mmol/L Normal 97-108 Compr ensive Internal Medicine Work Phone: Comment on above: PATIENT NOT FASTINGP ERFORMED BY: CB [facility] Zwnana3326 [address] [facility] [place] [id number] Information: [id number] CO2 molar conc 28 mmol/L Normal 20-32 Comprehens trupti Internal Medicine Work Phone: Comment on above: PATIENT NOT FASTINGP ERFORMED BY: CB [facility] Wamukm6229 [address] RoadDublin [place] [id number] Information: 390362,[id number] Creatinine mass conc 0.70 mg/dL Normal 0.57-1.00 Comp [facility] centeren[facility]ive Internal Medicine Work Phone: Comment on above: PATIENT NOT FASTINGP ERFORMED BY: CB [facility] Ixdsos8435 [address] RoadDublin [place] [id number] Information: 660936,[id number] GFR/1.73 sq M predicted among blacks MDRD [...] PATIENT NOT FASTINGP ERFORMED BY: ORTIZ [facility] Qqwanm3333 [facility] [id number] Information: 263193,V61454 GFR/1.73 sq M.predicted MDRD (S/P/Bld) [Vol rate/Area] mL/min/{1.73_m2} Normal [facility] Work Phone: Comment on above: PATIENT NOT FASTINGP ERFORMED BY: ORTIZ [facility] Zjytur8256 [facility] [id number] Information: 537120,V31769 GFR/1.73 sq M.predicted MDRD vol rate/area mL/min/{1.73_m2} Normal [facility] Work Phone: Comment on above: PATIENT NOT FASTINGP ERFORMED BY: ORTIZ [facility] Jnqcja6935 [facility] [id number] Information: 685215,[id number] Globulin mass conc (S) 2.5 g/dL Normal 1.5-4.5 Co mprehensive [facility] Medicine Work Phone: Comment on above: PATIENT NOT FASTINGP ERFORMED BY: ORTIZ [facility] Tcsdxo3939 [facility] [id number] Information: [id number],Z10007 Glucose mass conc 88 mg/dL Normal 65-99 Compreh ensive Internal Medicine Work Phone: Comment on above: PATIENT NOT FASTINGP ERFORMED BY: ORTIZ [facility] Qngevd8343 [address] [facility] [id number] Information: 859895,M48871 Potassium molar conc 4.6 mmol/L Normal 3.5-5.2 Comp rehensive Internal Medicine Work Phone: Comment on above: PATIENT NOT FASTINGP ERFORMED BY: ORTIZ LabCoSaint Barnabas Behavioral Health CenterRdgbof3204 [facility] [id number] Information: [id number] Protein mass conc 6.9 g/dL Normal 6.0-8.5 Compreh ensive Internal Medicine Work Phone: Comment on above: PATIENT NOT FASTINGP ERFORMED BY: ORTIZ [facility] Hekops7306 [facility] [id number] Information: 275887,[id number] Sodium molar conc 140 mmol/L Normal 135-145 Compreh ensive Internal Medicine Work Phone: Comment on above: PATIENT NOT FASTINGP ERFORMED BY: LabCore[facility]6370 [facility] [id number] Information: 225227,[id number] Urea nitrogen mass conc 9 mg/dL Normal 8-27 [facility] Work Phone: Comment on above: PATIENT NOT FASTINGP ERFORMED BY: AmeyaSaint Barnabas Behavioral Health CenterTjhlrx6578 [facility] [id number] Information: [id number],[id number] Urea nitrogen/Creatinine mass ratio 13 mg/mg Normal 11-26 [facility] Work Phone: Comment on above: PATIENT NOT FASTINGP ERFORMED BY: [facility] Gtbtqo7824 [facility] [id number] Information: [id number],[id number] TSH (55251)Ordered By: Samantha Montelongo on 10-14-2010 Thyrotropin Qn 1.320 {uIU/mL} Normal 0.450-4.50 0 [facility] Work Phone: Comment on above: PATIENT NOT FASTINGP ERFORMED BY: LabCoSaint Barnabas Behavioral Health CenterMneqou9704 [facility] [id number] URINALYSIS W/O MICRO ([id number]) Ordered By: Executive Chairman on 10-14-2010 Appearance Nom (U) Clear Normal Compre hensive Internal Medicine Work Phone: Comment on above: PATIENT NOT FASTINGP ERFORMED BY: ORTIZ MeenaAleksandr CroweOvyqnf5561 [address]blin [place] [id number] Bilirubin Ql (U) Negative Normal Comprehe nsive Internal Medicine Work Phone: Comment on above: PATIENT NOT FASTINGP ERFORMED BY: ORTIZ LabAleksandr CroweFlvszr2315 [address] [facility]in [place] [id number] Color Nom (U) Yellow Normal Comprehensi ve Internal Medicine Work Phone: Comment on above: PATIENT NOT FASTINGP ERFORMED BY: ORTIZ MeenaAleksandr CroweRglwtg1546 [address] [facility] [id number] Glucose Ql (U) Negative Normal Comprehens trupti Internal Medicine Work Phone: Comment on above: PATIENT NOT FASTINGP ERFORMED BY: ORTIZ Crowelin6370 [address] [facility] [id number] Hemoglobin Ql (U) Negative Normal Compreh ensive Internal Medicine Work Phone: Comment on above: PATIENT NOT FASTINGP ERFORMED BY: ORTIZ Crowelin6370 [address] [facility] [id number] Ketones Ql (U) Negative Normal Comprehens trupti Internal Medicine Work Phone: Comment on above: PATIENT NOT FASTINGP ERFORMED BY: ORTIZ Crowelin6370 [address] [facility] [id number] Leukocyte esterase Test strip Ql (U) Negative Normal [facility] Work Phone: Comment on above: PATIENT NOT FASTINGP ERFORMED BY: ORTIZ LabAleksandr CroweKpmyzy0541 [address] [facility] [id number] Microscopic observation LM Nom (Urine sed) MICRON Normal [facility] Work Phone: Comment on above: Microscopic follows if indicated. PATIENT NOT FASTINGP ERFORMED BY: ORTIZ LabKellie Vacaso5462 [address] [facility] [id number] Nitrite Ql (U) Negative Normal Comprehens trupti Internal Medicine Work Phone: Comment on above: PATIENT NOT FASTINGP ERFORMED BY: ORTIZ Chester6370 [address] [facility]in [place] [id number] pH (U) 6.5 [pH] Normal 5.0-7.5 [facility] Work Phone: Comment on above: PATIENT NOT FASTINGP ERFORMED BY: ORTIZ Chester6370 [address] [facility] [id number] Protein Ql (U) Negative Normal Comprehens trupti Internal Medicine Work Phone: Comment on above: PATIENT NOT FASTINGP ERFORMED BY: ORTIZ Chester6[address] [facility] [id number] Specific gravity Relative Density (U) 1.020 1 Normal 1.005-1.03 0 [facility] Work Phone: Comment on above: PATIENT NOT FASTINGP ERFORMED BY: ORTIZ Chester6[address] [facility] [id number] Urobilinogen Test strip mass conc (U) 0.2 mg/dL Normal 0.0-1.9 Comprehensiv e Internal Medicine Work Phone: Comment on above: PATIENT NOT FASTINGP ERFORMED BY: ORTIZ Chester6370 [facility] [id number] VITAMIN B-12 (CYANOCOBALAMIN ) (64314)Ordered By: Executive Chairman on 10-14-2010 Cobalamin (Vitamin B12) mass conc 246 pg/mL Normal 211-946 [facility] Work Phone: Comment on above: PATIENT NOT FASTINGP ERFORMED BY: ORTIZ [facility] Yurqvk6875 [address] [facility]in [place] [id number] LIPID PANEL (35799)Ordered B y: Executive Chairman on 12-14-2009 Cholesterol in HDL mass conc 54 mg/dL Normal [facility] Work Phone: Comment on above: According to ATP-III Guidelines, HDL-C >59 mg/dL is considered anegative risk factor for CHD. PATIENT WAS FASTINGP ERFORMED BY: LabCo Pgtwwl8117 [facility] [id number] Information: [id number] Cholesterol in LDL mass conc 111 mg/dL Abnormal 0-99 [facility] Work Phone: Comment on above: PATIENT WAS FASTINGP ERFORMED BY: Lab[facility] Heahed5672 [facility] [id number] Information: 749985,D80347 Cholesterol in LDL/Cholesterol in HDL mass ratio 2.1 {ratio_units} Normal 0.0-3.2 [facility] Work Phone: Comment on above: PATIENT WAS FASTINGP ERFORMED BY: Lab[facility] Lxpdmn6127 [facility] [id number] Information: 580893,Q40783 Cholesterol in VLDL mass conc 21 mg/dL Normal 5-40 [facility] Work Phone: Comment on above: PATIENT WAS FASTINGP ERFORMED BY: [facility] Xuewtu5898 [facility] [id number] Information: 415130,[id number] Cholesterol mass conc 186 mg/dL Normal 100-199 [facility] Internal Medicine Work Phone: Comment on above: PATIENT WAS FASTINGP ERFORMED BY: [facility] Zqubkp0596 [facility] [id number] Information: 306658,[id number] Triglyceride mass conc 103 mg/dL Normal 0-149 Co [facility] Internal Medicine Work Phone: Comment on above: PATIENT WAS FASTINGP ERFORMED BY: [facility] Xxjcjs4028 [facility] [id number] Information: 397509,[id number] TSH (79458)Ordered By: Samantha Montelongo on 12-14-2009 Thyrotropin Qn 1.680 {uIU/mL} Normal 0.450-4.50 0 [facility] Work Phone: Comment on above: PATIENT WAS FASTINGP ERFORMED BY: LabCorewell Health [facility] Hospital6370 [facility] [id number] CBC WITH MANUAL DIFF ([id number]) Ordered By: Executive Chairman on 12-13-2009 Basophils #/vol (Bld) 0.0 {x10E3/uL} Normal 0.0-0.2 [facility] Work Phone: Comment on above: PATIENT NOT FASTINGP ERFORMED BY: [facility] Rwyrxl9830 [address] [facility] [id number] Information: 443534,Q44722 Basophils/100 WBC (Bld) 0 % Normal 0-3 [facility] Work Phone: Comment on above: PATIENT NOT FASTINGP ERFORMED BY: LabCoSaint Barnabas Behavioral Health CenterIfeako3952 [facility] [id number] Information: 094437,[id number] Eosinophils #/vol (Bld) 0.0 {x10E3/uL} Normal 0.0-0.4 [facility] Work Phone: Comment on above: PATIENT NOT FASTINGP ERFORMED BY: LabCoSaint Barnabas Behavioral Health CenterKxznmr0219 [facility] [id number] Information: 933881,G94141 Eosinophils/100 WBC (Bld) 0 % Normal 0-7 [facility] Work Phone: Comment on above: PATIENT NOT FASTINGP ERFORMED BY: LabCoSaint Barnabas Behavioral Health CenterXrwcrb4541 [facility] [id number] Information: 496762,[id number] Erythrocyte distribution width Ratio (RBC) 13.9 % Normal 11.7-15.0 [facility] Work Phone: Comment on above: PATIENT NOT FASTINGP ERFORMED BY: [facility] Nsjmjk3613 [address] [facility] [id number] Information: 872010,C19776 Hematocrit Volume Fraction (Bld) 38.9 % Normal 34.0-44.0 [facility] Work Phone: Comment on above: PATIENT NOT FASTINGP ERFORMED BY: [facility] Jbmuwf9275 [facility] [id number] Information: [id number],[id number] Hemoglobin mass conc (Bld) 13.7 g/dL Normal 11.5-15.0 [facility] Work Phone: Comment on above: PATIENT NOT FASTINGP ERFORMED BY: ORTIZ RobledoCo Rzfvev0958 [facility] [id number] Information: [id number] Lymphocytes #/vol (Bld) 1.3 {x10E3/uL} Normal 0.7-4.5 [facility] Work Phone: Comment on above: PATIENT NOT FASTINGP ERFORMED BY: Lab[address] [id number] Information: [id number] Lymphocytes/100 WBC (Bld) 20 % Normal 14-46 [facility] Work Phone: Comment on above: PATIENT NOT FASTINGP ERFORMED BY: [address] [id number] Information: [id number],[id number] MCH Entitic mass (RBC) 31.3 pg Normal 27.0-34.0 [facility] Internal Medicine Work Phone: Comment on above: PATIENT NOT FASTINGP ERFORMED BY: ORTIZ [facility] HospitalCoRyan [place] 5960870 [facility] [id number] Information: 230902,[id number] MCHC mass conc (RBC) 35.2 g/dL Normal 32.0-36.0 [facility] Internal Medicine Work Phone: Comment on above: PATIENT NOT FASTINGP ERFORMED BY: LabCoSaint Barnabas Behavioral Health CenterPnlrmk8379 [facility] [id number] Information: [id number] MCV Entitic volume (RBC) 89 fL Normal 80-98 [facility] Internal Medicine Work Phone: Comment on above: PATIENT NOT FASTINGP ERFORMED BY: [address] [id number] Information: [id number],[id number] Monocytes #/vol (Bld) 0.4 {x10E3/uL} Normal 0.1-1.0 [facility] Work Phone: Comment on above: PATIENT NOT FASTINGP ERFORMED BY: ORTIZ LabCoaustyn ChesterRpowbs5380 [facility] [id number] Information: 257684,Z36097 Monocytes/100 WBC (Bld) 6 % Normal 4-13 [facility] Work Phone: Comment on above: PATIENT NOT FASTINGP ERFORMED BY: LabCoSaint Barnabas Behavioral Health CenterCtdpxv2607 [facility] [id number] Information: [id number] Neutrophils #/vol (Bld) 5.0 {x10E3/uL} Normal 1.8-7.8 [facility] Work Phone: Comment on above: PATIENT NOT FASTINGP ERFORMED BY: LabCoSaint Barnabas Behavioral Health CenterYqvwbs9786 [facility] [id number] Information: 793786,P19851 Neutrophils/100 WBC (Bld) 74 % Normal 40-74 [facility] Work Phone: Comment on above: PATIENT NOT FASTINGP ERFORMED BY: LabCo Xkfcau0229 [facility] [id number] Information: 543209,[id number] Platelets #/vol (Bld) 228 {x10E3/uL} Normal 140-415 [facility] Work Phone: Comment on above: PATIENT NOT FASTINGP ERFORMED BY: LabCoSaint Barnabas Behavioral Health CenterCmpivj3425 [facility] [id number] Information: [id number] RBC #/vol (Bld) 4.38 {x10E6/uL} Normal 3.80-5.[address] [facility] Internal Medicine Work Phone: Comment on above: PATIENT NOT FASTINGP ERFORMED BY: LabCoSaint Barnabas Behavioral Health CenterLdabnh9544 [facility] [id number] Information: [id number] WBC #/vol (Bld) 6.7 {x10E3/uL} Normal 4.0-10.5 Compr [facility] Internal Medicine Work Phone: Comment on above: PATIENT NOT FASTINGP ERFORMED BY: ORTIZ Chester6370 [facility] [id number] Information: [id number],[id number] METABOLIC PANEL, COMPREHENSI VE (55301)Ordered By: Executive Chairman on 12-13-2009 Albumin mass conc 4.1 g/dL Normal 3.5-4.8 Compreh [facility] servicesive [facility] Work Phone: Comment on above: PATIENT NOT FASTINGP ERFORMED BY: ORTIZ [facility] Oqfdpm9974 [facility] [id number] Albumin/Globulin mass ratio 1.7 {ratio} Normal 1.1-2.5 [facility] Work Phone: Comment on above: PATIENT NOT FASTINGP ERFORMED BY: ORTIZ [facility] Zptbui4463 [facility] [id number] ALP enzyme act/vol 82 [iU]/L Normal 25-165 [facility] Work Phone: Comment on above: PATIENT NOT FASTINGP ERFORMED BY: ORTIZ [facility] Vhpfzm8855 [facility] [id number] ALT enzyme act/vol 12 [iU]/L Normal 0-40 [facility] Work Phone: Comment on above: PATIENT NOT FASTINGP ERFORMED BY: CB [facility] Xicilh4852 [address] [facility] [id number] AST enzyme act/vol 19 [iU]/L Normal 0-40 [facility] Work Phone: Comment on above: PATIENT NOT FASTINGP ERFORMED BY: CB [facility] Dsuauo6313 [address] [facility] [id number] Bilirubin mass conc 0.2 mg/dL Normal 0.1-1.2 Compr [facility] Internal Medicine Work Phone: Comment on above: PATIENT NOT FASTINGP ERFORMED BY: CB [facility] Fazcau8080 [facility] [id number] Calcium mass conc 9.6 mg/dL Normal 8.6-10.2 Compreh ensive Internal Medicine Work Phone: Comment on above: PATIENT NOT FASTINGP ERFORMED BY: ORTIZ Crowelin6370 [facility] [id number] Chloride molar conc 104 mmol/L Normal 97-108 Compr ehensive Internal Medicine Work Phone: Comment on above: PATIENT NOT FASTINGP ERFORMED BY: ORTIZ LabKellie Hnxstk2051 [facility] [id number] CO2 molar conc 25 mmol/L Normal 20-32 Comprehens trupti Internal Medicine Work Phone: Comment on above: PATIENT NOT FASTINGP ERFORMED BY: ORTIZ Hou Tzvgkd4254 [facility] [id number] Creatinine mass conc 0.71 mg/dL Normal 0.57-1.00 Comp rehensive Internal Medicine Work Phone: Comment on above: PATIENT NOT FASTINGP ERFORMED BY: ORTIZ Hou Owkqqp2572 [facility] [id number] GFR/1.73 sq M predicted among blacks MDRD [...] PATIENT NOT FASTINGP ERFORMED BY: ORTIZ [facility] Cnbgsb7086 [facility] [id number] GFR/1.73 sq M.predicted MDRD (S/P/Bld) [Vol rate/Area] mL/min/{1.73_m2} Normal [facility] Work Phone: Comment on above: PATIENT NOT FASTINGP ERFORMED BY: ORTIZ [facility] Szxnri2469 [address] [facility] [place] [id number] GFR/1.73 sq M.predicted MDRD vol rate/area mL/min/{1.73_m2} Normal [facility] Work Phone: Comment on above: PATIENT NOT FASTINGP ERFORMED BY: ORTIZ [facility] Rsqyml0093 [address] [facility] [id number] Globulin mass conc (S) 2.4 g/dL Normal 1.5-4.5 Co mprehensive Internal Medicine Work Phone: Comment on above: PATIENT NOT FASTINGP ERFORMED BY: ORTIZ [facility] Mpqnla2548 [address] [facility] [id number] Glucose mass conc 89 mg/dL Normal 65-99 Compreh ensive Internal Medicine Work Phone: Comment on above: PATIENT NOT FASTINGP ERFORMED BY: ORTIZ [facility] Gzglhe0527 [address] [facility] [id number] Potassium molar conc 5.0 mmol/L Normal 3.5-5.2 Comp rehensive Internal Medicine Work Phone: Comment on above: PATIENT NOT FASTINGP ERFORMED BY: ORTIZ [facility] Lwtwpb6390 [address] [facility] [place] [id number] Protein mass conc 6.5 g/dL Normal 6.0-8.5 Compreh ensive Internal Medicine Work Phone: Comment on above: PATIENT NOT FASTINGP ERFORMED BY: ORTIZ [facility] Tczqer1662 [address] [facility] [id number] Sodium molar conc 142 mmol/L Normal 135-145 Compreh ensive Internal Medicine Work Phone: Comment on above: PATIENT NOT FASTINGP ERFORMED BY: ORTIZ [facility] Dkpkcc8569 [address] [facility] [place] [id number] Urea nitrogen mass conc 10 mg/dL Normal 5-26 [facility] Work Phone: Comment on above: PATIENT NOT FASTINGP ERFORMED BY: ORTIZ [facility] Kxaxdn8835 [address] [facility] [place] [id number] Urea nitrogen/Creatinine mass ratio 14 mg/mg Normal 8-27 [facility] Work Phone: Comment on above: PATIENT NOT FASTINGP ERFORMED BY: [facility] Ubslzn3084 [facility] [id number] Urinalysis, Office ([id number])Or dered By: Radha Velez on 09-21-2008 Bilirubin [...] Bacteria identified Cx Nom (U) Escherichia coli [facility] Work Phone: Vital Signs Date Time Vital Sign Value Performing Clinician Facility 03-02-2025 18:29-0400 Body height 157.[address] Yesika Faust MD Work Phone: [facility] 05-05-2019 10:14-0400 BMI (Body Mass Index) 33.02 kg/m2 Mirella Mccracken Comprehens [facility]i Internal Medicine Work Phone: 05-05-2019 10:14-0400 Body weight 74.16 kg Mirella Mccracken [facility] Internal Medicine Work Phone: 05-05-2019 10:14-0400 BP Diastolic 80 mm[Hg] Mirella Mccracken [facility] Internal Medicine Work Phone: Comment on above: Patient Position: Sitting; Cuff Location : Left Arm; Cuff Size: Large 05-05-2019 10:14-0400 BP Systolic 138 mm[Hg] Mirella Mccracken [facility] Internal Medicine Work Phone: Comment on above: Patient Position: Sitting; Cuff Location : Left Arm; Cuff Size: Large 05-05-2019 10:14-0400 BSA (Body Surface Area) 1.69 m2 Mirella Mccracken [facility] Internal Medicine Work Phone: 05-05-2019 10:14-0400 Height 149.86 cm Mirella Mccracken [facility] Internal Medicine Work Phone: 05-05-2019 10:14-0400 Pulse (Heart Rate) 68 /min Mirella Mccracken [facility] Internal Medicine Work Phone: Comment on above: Pattern: Regular 05-05-2019 10:14-0400 Pulse Oximetry 95 % Mirella Mccracken [facility] Internal Medicine Work Phone: Comment on above: Room air 05-05-2019 10:14-0400 Respiratory Rate 18 /min Mirella Mccracken [facility] Internal Medicine Work Phone: Comment on above: Pattern: Unlabored 03-15-2019 09:59-0400 BMI (Body Mass Index) 33.4 kg/m2 Mirella [facility] Internal Medicine Work Phone: 03-15-2019 09:59-0400 Body weight 75.01 kg Mirella Mccracken [facility] Internal Medicine Work Phone: 03-15-2019 09:59-0400 BP Diastolic 82 mm[Hg] Mirella Mccracken [facility] Internal Medicine Work Phone: Comment on above: Patient Position: Sitting; Cuff Location : Left Arm; Cuff Size: Large 03-15-2019 09:59-0400 BP Systolic 168 mm[Hg] Mirella Mccracken [facility] Internal Medicine Work Phone: Comment on above: Patient Position: Sitting; Cuff Location : Left Arm; Cuff Size: Large 03-15-2019 09:59-0400 BSA (Body Surface Area) 1.7 m2 Mirella Mccracken [facility] Internal Medicine Work Phone: 03-15-2019 09:59-0400 Height 149.86 cm Mirella Mccracken [facility] Internal Medicine Work Phone: 03-15-2019 09:59-0400 Pulse (Heart Rate) 88 /min Mirella Mccracken [facility] Internal Medicine Work Phone: Comment on above: Pattern: Regular 03-15-2019 09:59-0400 Pulse Oximetry 98 % Mirella Mccracken [facility] Internal Medicine Work Phone: Comment on above: Room air 03-15-2019 09:59-0400 Respiratory Rate 18 /min Mirella Mccracken [facility] Internal Medicine Work Phone: Comment on above: Pattern: Unlabored 01-21-2018 08:25-0400 BMI (Body Mass Index) 29.34 kg/m2 Mirella Mccracken [facility] Internal Medicine Work Phone: 01-21-2018 08:25-0400 Body weight 65.89 kg Mirella Mccracken [facility] Internal Medicine Work Phone: 01-21-2018 08:25-0400 BP Diastolic 84 mm[Hg] Mirella Mccracken [facility] Internal Medicine Work Phone: Comment on above: Patient Position: Sitting; Cuff Location : Left Arm; Cuff Size: Large 01-21-2018 08:25-0400 BP Systolic 128 mm[Hg] Mirella Mccracken [facility] Internal Medicine Work Phone: Comment on above: Patient Position: Sitting; Cuff Location : Left Arm; Cuff Size: Large 01-21-2018 08:25-0400 BSA (Body Surface Area) 1.61 m2 Mirella Mccracken [facility] Internal Medicine Work Phone: 01-21-2018 08:25-0400 Height 149.86 cm Mirella Mccracken [facility] Internal Medicine Work Phone: 01-21-2018 08:25-0400 Pulse (Heart Rate) 84 /min Mirella Mccracken [facility] Internal Medicine Work Phone: Comment on above: Pattern: Regular 01-21-2018 08:25-0400 Pulse Oximetry 98 % Mirella Mccracken [facility] Internal Medicine Work Phone: Comment on above: Room air 01-21-2018 08:25-0400 Respiratory Rate 18 /min Mirella Mccracken [facility] Internal Medicine Work Phone: Comment on above: Pattern: Unlabored 01-21-2018 08:25-0400 Weight 65.89 kg Mirella Mccracken [facility] Internal Medicine Work Phone: 11-09-2017 14:35-0500 BMI (Body Mass Index) 28.91 kg/m2 Mirella Mccracken [facility] Internal Medicine Work Phone: 11-09-2017 14:35-0500 Body weight 64.92 kg Mirella Mccracken [facility] Internal Medicine Work Phone: 11-09-2017 14:35-0500 BP Diastolic 90 mm[Hg] Mirella Mccracken [facility] Internal Medicine Work Phone: Comment on above: Patient Position: Sitting; Cuff Location : Left Arm; Cuff Size: Large 11-09-2017 14:35-0500 BP Systolic 148 mm[Hg] Mirella Mccracken [facility] Internal Medicine Work Phone: Comment on above: Patient Position: Sitting; Cuff Location : Left Arm; Cuff Size: Large 11-09-2017 14:35-0500 BSA (Body Surface Area) 1.6 m2 Mirella Mccracken [facility] Internal Medicine Work Phone: 11-09-2017 14:35-0500 Height 149.86 cm Mirella Mccracken [facility] Internal Medicine Work Phone: 11-09-2017 14:35-0500 Pulse (Heart Rate) 67 /min Mirella Mccracken [facility] Internal Medicine Work Phone: Comment on above: Pattern: Regular 11-09-2017 14:35-0500 Pulse Oximetry 98 % Mirella Mccracken [facility] Internal Medicine Work Phone: Comment on above: Room air 11-09-2017 14:35-0500 Respiratory Rate 18 /min Mirella Mccracken [facility] Internal Medicine Work Phone: Comment on above: Pattern: Unlabored 11-09-2017 14:35-0500 Weight 64.92 kg Mirella Mccracken [facility] Internal Medicine Work Phone: 10-15-2017 09:58-0500 BMI (Body Mass Index) 28.91 kg/m2 Mirella Mccracken [facility] Internal Medicine Work Phone: 10-15-2017 09:58-0500 Body weight 64.92 kg Mirella Mccracken [facility] Internal Medicine Work Phone: 10-15-2017 09:58-0500 BP Diastolic 78 mm[Hg] Mirella Mccracken [facility] Internal Medicine Work Phone: Comment on above: Patient Position: Sitting; Cuff Location : Left Arm; Cuff Size: Large 10-15-2017 09:58-0500 BP Systolic 146 mm[Hg] Mirella Mccracken [facility] Internal Medicine Work Phone: Comment on above: Patient Position: Sitting; Cuff Location : Left Arm; Cuff Size: Large 10-15-2017 09:58-0500 BSA (Body Surface Area) 1.6 m2 Mirella Mccracken [facility] Internal Medicine Work Phone: 10-15-2017 09:58-0500 Height 149.86 cm Mirella Mccracken [facility] Internal Medicine Work Phone: 10-15-2017 09:58-0500 Pulse (Heart Rate) 74 /min Mirella Mccracken [facility] Internal Medicine Work Phone: Comment on above: Pattern: Regular 10-15-2017 09:58-0500 Pulse Oximetry 99 % Mirella Mccracken [facility] Internal Medicine Work Phone: Comment on above: Room air 10-15-2017 09:58-0500 Respiratory Rate 18 /min Mirella Mccracken [facility] Internal Medicine Work Phone: Comment on above: Pattern: Unlabored 10-15-2017 09:58-0500 Weight 64.92 kg Mirella Mccracken [facility] Internal Medicine Work Phone: 09-18-2017 09:08-0500 BMI (Body Mass Index) 28.91 kg/m2 Mirella Mccracken [facility] Internal Medicine Work Phone: 09-18-2017 09:08-0500 Body weight 64.92 kg Mirella Mccracken [facility] Internal Medicine Work Phone: 09-18-2017 09:08-0500 BP Diastolic 82 mm[Hg] Mirella Mccracken [facility] Internal Medicine Work Phone: Comment on above: Patient Position: Sitting; Cuff Location : Left Arm; Cuff Size: Large 09-18-2017 09:08-0500 BP Systolic 128 mm[Hg] Mirella Mccracken [facility] Internal Medicine Work Phone: Comment on above: Patient Position: Sitting; Cuff Location : Left Arm; Cuff Size: Large 09-18-2017 09:08-0500 BSA (Body Surface Area) 1.6 m2 Mirella Mccracken [facility] Internal Medicine Work Phone: 09-18-2017 09:08-0500 Height 149.86 cm Mirella Mccracken [facility] Internal Medicine Work Phone: 09-18-2017 09:08-0500 Pulse (Heart Rate) 72 /min Mirella Mccracken [facility] Internal Medicine Work Phone: Comment on above: Pattern: Regular 09-18-2017 09:08-0500 Pulse Oximetry 98 % Mirella Mccracken [facility] Internal Medicine Work Phone: Comment on above: Room air 09-18-2017 09:08-0500 Respiratory Rate 18 /min Mirella Mccracken [facility] Internal Medicine Work Phone: Comment on above: Pattern: Unlabored 09-18-2017 09:08-0500 Weight 64.92 kg Mirella Mccracken [facility] Internal Medicine Work Phone: 06-05-2017 [...] (Body Mass Index) 29.29 kg/m2 Mirella Mccracken [facility] Internal Medicine Work Phone: 05-07-2017 11:04-0400 Body [facility] 65.77 [facility]: 05-07-2017 11:04-0400 BP Diastolic 82 mm[Hg] [facility]: Comment on above: Patient Position: Sitting; Cuff Location : Left Arm; Cuff Size: Standard 05-07-2017 11:04-0400 BP Systolic 128 mm[Hg] [facility]: Comment on above: Patient Position: Sitting; Cuff Location : Left Arm; Cuff Size: Standard 05-07-2017 11:04-0400 BSA (Body Surface Area) 1.61 m2 [facility] Work Phone: 05-07-2017 11:04-0400 Height 149.86 cm Mirella Mccracken [facility] Internal Medicine Work Phone: 05-07-2017 11:04-0400 Pulse (Heart Rate) 65 /min Mirlela Mccracken [facility] Internal Medicine Work Phone: Comment on above: Pattern: Regular 05-07-2017 11:04-0400 Pulse Oximetry 98 % Mirella Mccracken [facility] Internal Medicine Work Phone: Comment on above: Room air 05-07-2017 11:04-0400 Respiratory Rate 18 /min Mirella Mccracken [facility] Internal Medicine Work Phone: Comment on above: Pattern: Unlabored 05-07-2017 11:04-0400 Weight 65.77 kg Mirella Mccracken [facility] Internal Medicine Work Phone: 03-26-2017 08:06-0400 BMI (Body Mass Index) 29.29 kg/m2 Mirella Mccracken [facility] Internal Medicine Work Phone: 03-26-2017 08:06-0400 Body Temperature 97.5 [degF] Mirella Mccracken [facility] Internal Medicine Work Phone: Comment on above: Method: Temporal 03-26-2017 08:06-0400 Body weight 65.77 kg Mirella Mccracken [facility] Internal Medicine Work Phone: 03-26-2017 08:06-0400 BP Diastolic 84 mm[Hg] Mirella Mccracken [facility] Internal Medicine Work Phone: Comment on above: Patient Position: Sitting; Cuff Location : Left Arm; Cuff Size: Large 03-26-2017 08:06-0400 BP Systolic 126 mm[Hg] Mirella Mccracken [facility] Internal Medicine Work Phone: Comment on above: Patient Position: Sitting; Cuff Location : Left Arm; Cuff Size: Large 03-26-2017 08:06-0400 BSA (Body Surface Area) 1.61 m2 Mirella Mccracken [facility] Internal Medicine Work Phone: 03-26-2017 08:06-0400 Height 149.86 cm [facility] Work Phone: 03-26-2017 08:06-0400 Pulse (Heart Rate) 82 /min Mirella Mccracken [facility] Internal Medicine Work Phone: Comment on above: Pattern: Regular 03-26-2017 08:06-0400 Pulse Oximetry 98 % Mirella Mccracken [facility] Internal Medicine Work Phone: Comment on above: Room air 03-26-2017 08:06-0400 Respiratory Rate 16 /min Mirella Mccracken [facility] Internal Medicine Work Phone: Comment on above: Pattern: Unlabored 03-26-2017 08:06-0400 Weight 65.77 kg Mirella Mccracken [facility] Internal Medicine Work Phone: 12-25-2016 10:08-0400 BMI (Body Mass Index) 29.51 kg/m2 Mirella Mccracken [facility] Internal Medicine Work Phone: 12-25-2016 10:08-0400 Body weight 66.28 kg Mirella Mccracken [facility] Internal Medicine Work Phone: 12-25-2016 10:08-0400 BP Diastolic 80 mm[Hg] Mirella Mccracken [facility] Internal Medicine Work Phone: Comment on above: Patient Position: Sitting; Cuff Location : Left Arm; Cuff Size: Large 12-25-2016 10:08-0400 BP Systolic 122 mm[Hg] Mirella Mccracken [facility] Internal Medicine Work Phone: Comment on above: Patient Position: Sitting; Cuff Location : Left Arm; Cuff Size: Large 12-25-2016 10:08-0400 BSA (Body Surface Area) 1.61 m2 Mirella Mccracken [facility] Internal Medicine Work Phone: 12-25-2016 10:08-0400 Height 149.86 cm Mirella Mccracken [facility] Internal Medicine Work Phone: 12-25-2016 10:08-0400 Pulse (Heart Rate) 69 /min Mirella Mccracken [facility] Internal Medicine Work Phone: Comment on above: Pattern: Regular 12-25-2016 10:08-0400 Pulse Oximetry 98 % Mirella Mccracken [facility] Internal Medicine Work Phone: Comment on above: Room air 12-25-2016 10:08-0400 Respiratory Rate 18 /min Mirella Mccracken [facility] Internal Medicine Work Phone: Comment on above: Pattern: Unlabored 12-25-2016 10:08-0400 Weight 66.28 kg Mirella Mccracken [facility] Internal Medicine Work Phone: 11-03-2016 14:09-0500 BSA (Body Surface Area) 1.59 m2 [facility] Work Phone: 09-25-2016 07:51-0500 BMI (Body Mass Index) 29.94 kg/m2 Mirella Mccracken [facility] Internal Medicine Work Phone: 09-25-2016 07:51-0500 Body Temperature 97.6 [degF] Mirella Mccracken [facility] Internal Medicine Work Phone: 09-25-2016 07:51-0500 Body weight 67.25 kg Mirella Mccracken [facility] Internal Medicine Work Phone: 09-25-2016 07:51-0500 BP Diastolic 78 mm[Hg] Mirella Mccracken [facility] Internal Medicine Work Phone: Comment on above: Patient Position: Sitting; Cuff Location : Left Arm; Cuff Size: Standard 09-25-2016 07:51-0500 BP Systolic 122 mm[Hg] Mirella Mccracken [facility] Internal Medicine Work Phone: Comment on above: Patient Position: Sitting; Cuff Location : Left Arm; Cuff Size: Standard 09-25-2016 07:51-0500 BSA (Body Surface Area) 1.62 m2 Mirella Mccracken [facility] Internal Medicine Work Phone: 09-25-2016 07:51-0500 Height 149.86 cm Mirella Mccracken [facility] Internal Medicine Work Phone: 09-25-2016 07:51-0500 Pulse (Heart Rate) 94 /min Mirella Mccracken [facility] Internal Medicine Work Phone: Comment on above: Pattern: Regular 09-25-2016 07:51-0500 Pulse Oximetry 96 % Mirella Mccracken [facility] Internal Medicine Work Phone: Comment on above: Room air 09-25-2016 07:51-0500 Respiratory Rate 17 /min Mirella Mccracken [facility] Internal Medicine Work Phone: Comment on above: Pattern: Unlabored 09-25-2016 07:51-0500 Weight 67.25 kg Mirella Mccracken [facility] Internal Medicine Work Phone: 06-25-2016 08:52-0400 BMI (Body Mass Index) 29.54 kg/m2 Mirella Mccracken [facility] Internal Medicine Work Phone: 06-25-2016 08:52-0400 Body weight 66.34 kg Mirella Mccracken [facility] Internal Medicine Work Phone: 06-25-2016 08:52-0400 BP Diastolic 60 mm[Hg] Mirella Mccracken [facility] Internal Medicine Work Phone: Comment on above: Patient Position: Sitting; Cuff Location : Left Arm; Cuff Size: Standard 06-25-2016 08:52-0400 BP Systolic 110 mm[Hg] Mirella Mccracken [facility] Internal Medicine Work Phone: Comment on above: Patient Position: Sitting; Cuff Location : Left Arm; Cuff Size: Standard 06-25-2016 08:52-0400 BSA (Body Surface Area) 1.61 m2 Mirella Mccracken [facility] Internal Medicine Work Phone: 06-25-2016 08:52-0400 Height 149.86 cm Mirella Mccracken [facility] Internal Medicine Work Phone: 06-25-2016 08:52-0400 Pulse (Heart Rate) 72 /min Mirella Mccracken [facility] Internal Medicine Work Phone: Comment on above: Pattern: Regular 06-25-2016 08:52-0400 Pulse Oximetry 100 % Mirella Mccracken [facility] Internal Medicine Work Phone: Comment on above: Room air 06-25-2016 08:52-0400 Respiratory Rate 18 /min Mirella Mccracken [facility] Internal Medicine Work Phone: Comment on above: Pattern: Unlabored 06-25-2016 08:52-0400 Weight 66.34 kg Mirella Mccracken [facility] Internal Medicine Work Phone: 05-21-2016 08:08-0400 BMI (Body Mass Index) 29.39 kg/m2 Mirella Mccracken [facility] Internal Medicine Work Phone: 05-21-2016 08:08-0400 Body Temperature 97.2 [degF] Mirella Mccracken [facility] Internal Medicine Work Phone: 05-21-2016 08:08-0400 Body weight 66 kg Mirella Mccracken [facility] Internal Medicine Work Phone: 05-21-2016 08:08-0400 BP Diastolic 82 mm[Hg] Mirella Mccracken [facility] Internal Medicine Work Phone: Comment on above: Patient Position: Sitting; Cuff Location : Left Arm; Cuff Size: Standard 05-21-2016 08:08-0400 BP Systolic 124 mm[Hg] Mirella Mccracken [facility] Internal Medicine Work Phone: Comment on above: Patient Position: Sitting; Cuff Location : Left Arm; Cuff Size: Standard 05-21-2016 08:08-0400 BSA (Body Surface Area) 1.61 m2 Mirella Mccracken [facility] Internal Medicine Work Phone: 05-21-2016 08:08-0400 Height 149.86 cm Mirella Mccracken [facility] Internal Medicine Work Phone: 05-21-2016 08:08-0400 Pulse (Heart Rate) 80 /min Mirella Mccracken [facility] Internal Medicine Work Phone: Comment on above: Pattern: Regular 05-21-2016 08:08-0400 Pulse Oximetry 98 % Mirella Mccracken [facility] Internal Medicine Work Phone: Comment on above: Room air 05-21-2016 08:08-0400 Respiratory Rate 16 /min Mirella Mccracken [facility] Internal Medicine Work Phone: Comment on above: Pattern: Unlabored 05-21-2016 08:08-0400 Weight 66 kg Mirella Mccracken [facility] Internal Medicine Work Phone: 01-04-2016 09:52-0400 BMI (Body Mass Index) 29.59 kg/m2 Mirella [facility] Work Phone: 01-04-2016 09:52-0400 Body weight 66.45 kg Mirella Mccracken [facility] Medicine Work Phone: 01-04-2016 09:52-0400 BP Diastolic 64 mm[Hg] Mirella Mccracken [facility] Internal Medicine Work Phone: Comment on above: Patient Position: Sitting; Cuff Location : Left Arm; Cuff Size: Standard 01-04-2016 09:52-0400 BP Systolic 110 mm[Hg] Mirella Mccracken [facility] Internal Medicine Work Phone: Comment on above: Patient Position: Sitting; Cuff Location : Left Arm; Cuff Size: Standard 01-04-2016 09:52-0400 BSA (Body Surface Area) 1.62 m2 Mirella Mccracken [facility] Internal Medicine Work Phone: 01-04-2016 09:52-0400 Height 149.86 cm Mirella Mccracken [facility] Internal Medicine Work Phone: 01-04-2016 09:52-0400 Pulse (Heart Rate) 64 /min Mirella Mccracken [facility] Internal Medicine Work Phone: Comment on above: Pattern: Regular 01-04-2016 09:52-0400 Pulse Oximetry 97 % Mirella Mccracken [facility] Internal Medicine Work Phone: Comment on above: Room air 01-04-2016 09:52-0400 Respiratory Rate 18 /min Mirella Mccracken [facility] Internal Medicine Work Phone: Comment on above: Pattern: Unlabored 01-04-2016 09:52-0400 Weight 66.45 kg Mirella Mccracken [facility] Internal Medicine Work Phone: 12-06-2015 09:19-0400 BMI (Body Mass Index) 29.89 kg/m2 Mirella [facility] Work Phone: 12-06-2015 09:19-0400 Body weight 67.13 kg Mirella Mccracken [facility] Internal Medicine Work Phone: 12-06-2015 09:19-0400 BP Diastolic 78 mm[Hg] Mirella Mccracken [facility] Internal Medicine Work Phone: Comment on above: Patient Position: Sitting; Cuff Location : Left Arm; Cuff Size: Large 12-06-2015 09:19-0400 BP Systolic 122 mm[Hg] Mirella Mccracken [facility] Internal Medicine Work Phone: Comment on above: Patient Position: Sitting; Cuff Location : Left Arm; Cuff Size: Large 12-06-2015 09:19-0400 BSA (Body Surface Area) 1.62 m2 Mirella Mccracken [facility] Internal Medicine Work Phone: 12-06-2015 09:19-0400 Height 149.86 cm Mirella Mccracken [facility] Internal Medicine Work Phone: 12-06-2015 09:19-0400 Pulse (Heart Rate) 73 /min Mirella Mccracken [facility] Internal Medicine Work Phone: Comment on above: Pattern: Regular 12-06-2015 09:19-0400 Pulse Oximetry 99 % Mirella Mccracken [facility] Internal Medicine Work Phone: Comment on above: Room air 12-06-2015 09:19-0400 Respiratory Rate 18 /min Mirella Mccracken [facility] Internal Medicine Work Phone: Comment on above: Pattern: Unlabored 12-06-2015 09:19-0400 Weight 67.13 kg Mirella Mccracken [facility] Internal Medicine Work Phone: 11-29-2015 09:09-0400 BMI (Body Mass Index) 29.72 kg/m2 Mirella Mccracken [facility] Internal Medicine Work Phone: 11-29-2015 09:09-0400 Body Temperature 98.2 [degF] Mirella Mccracken [facility] Internal Medicine Work Phone: Comment on above: Method: Oral 11-29-2015 09:09-0400 Body weight 66.74 kg Mirella Mccracken [facility] Internal Medicine Work Phone: 11-29-2015 09:09-0400 BP Diastolic 58 mm[Hg] Mirella Mccracken [facility] Internal Medicine Work Phone: Comment on above: Patient Position: Sitting; Cuff Location : Left Arm; Cuff Size: Large 11-29-2015 09:09-0400 BP Systolic 100 mm[Hg] Mirella Mccracken [facility] Internal Medicine Work Phone: Comment on above: Patient Position: Sitting; Cuff Location : Left Arm; Cuff Size: Large 11-29-2015 09:09-0400 BSA (Body Surface Area) 1.62 m2 Mirella Mccracken [facility] Internal Medicine Work Phone: 11-29-2015 09:09-0400 Height 149.86 cm Mirella Mccracken [facility] Internal Medicine Work Phone: 11-29-2015 09:09-0400 Pulse (Heart Rate) 71 /min Mirella Mccracken [facility] Internal Medicine Work Phone: Comment on above: Pattern: Regular 11-29-2015 09:09-0400 Pulse Oximetry 98 % Mirella Mccracken [facility] Internal Medicine Work Phone: Comment on above: Room air 11-29-2015 09:09-0400 Respiratory Rate 18 /min Mirella Mccracken [facility] Internal Medicine Work Phone: Comment on above: Pattern: Unlabored 11-29-2015 09:09-0400 Weight 66.74 kg Mirella Mccracken [facility] Internal Medicine Work Phone: 10-24-2015 10:01-0500 BMI (Body Mass Index) 30.78 kg/m2 Mirella Mccracken [facility] Internal Medicine Work Phone: Comment on above: Dr[facility]stein [facility] 10-24-2015 10:01-0500 Body weight 69.12 kg Mirella Mccracken [facility] Internal Medicine Work Phone: Comment on above: Dr[facility] Goldstein [facility] 10-24-2015 10:01-0500 BP Diastolic 82 mm[Hg] [facility] Internal Medicine Work Phone: Comment on above: Patient Position: Sitting; Cuff Location : Left Arm; Cuff Size: [facility] 10:01-0500 BP Systolic 124 mm[Hg] [facility] Internal Medicine Work Phone: Comment on above: Patient Position: Sitting; Cuff Location : Left Arm; Cuff Size: [facility]-24-2015 10:01-0500 BSA (Body Surface Area) 1.64 m2 [facility] Internal Medicine Work Phone: Comment on above: Dr[facility] Goldstein [facility] 10-24-2015 10:01-0500 Height 149.86 cm [facility] Internal Medicine Work Phone: Comment on above[facility] 10:01-0500 Pulse (Heart Rate) 66 /min [facility] Internal Medicine Work Phone: Comment on above: Pattern: Regular [facility]-24-2015 10:01-0500 Pulse Oximetry 98 % [facility] Medicine Work Phone: Comment on above: Room air [facility]-24-2015 10:01-0500 Respiratory Rate 18 /min [facility] Internal Medicine Work Phone: Comment on above: Pattern: Unlabored [facility]-24-2015 10:01-0500 Weight 69.12 kg [facility] Medicine Work Phone: Comment on above: [facility] 07-26-2015 10:22-0500 BMI (Body Mass Index) 32.32 kg/m2 [facility] Internal Medicine Work Phone: 07-26-2015 10:22-0500 Body weight 72.58 kg Mirella Mccracken [facility] Internal Medicine Work Phone: 07-26-2015 10:22-0500 BP Diastolic 80 mm[Hg] Mirella Mccracken [facility] Internal Medicine Work Phone: Comment on above: Patient Position: Sitting; Cuff Location : Left Arm; Cuff Size: Large 07-26-2015 10:22-0500 BP Systolic 138 mm[Hg] Mirella Mccracken [facility] Work Phone: Comment on above: Patient Position: Sitting; Cuff Location : Left Arm; Cuff Size: Large 07-26-2015 10:22-0500 BSA (Body Surface Area) 1.68 m2 Mirella Mccracken [facility] Medicine Work Phone: 07-26-2015 10:22-0500 Height 149.86 cm Mirella Mccracken [facility] Internal Medicine Work Phone: 07-26-2015 10:22-0500 Pulse (Heart Rate) 62 /min Mirella Mccracken [facility] Internal Medicine Work Phone: Comment on above: Pattern: Regular 07-26-2015 10:22-0500 Pulse Oximetry 98 % Mirella Mccracken [facility] Internal Medicine Work Phone: Comment on above: Room air 07-26-2015 10:22-0500 Respiratory Rate 18 /min Mirella Mccracken [facility] Internal Medicine Work Phone: Comment on above: Pattern: Unlabored 07-26-2015 10:22-0500 Weight 72.58 kg Mirella Mccracken [facility] Internal Medicine Work Phone: 07-06-2015 09:03-0400 Body weight 72.12 kg Mirella Mccracken [facility] Internal Medicine Work Phone: 07-06-2015 09:03-0400 BP Diastolic 78 mm[Hg] Mirella Mccracken [facility] Internal Medicine Work Phone: Comment on above: Patient Position: Sitting; Cuff Location : Left Arm; Cuff Size: Large 07-06-2015 09:03-0400 BP Systolic 122 mm[Hg] Mirella Mccracken [facility] Internal Medicine Work Phone: Comment on above: Patient Position: Sitting; Cuff Location : Left Arm; Cuff Size: Large 07-06-2015 09:03-0400 Pulse (Heart Rate) 68 /min Mirella Mccracken [facility] Internal Medicine Work Phone: Comment on above: Pattern: Regular 07-06-2015 09:03-0400 Pulse Oximetry 98 % Mirella Mccracken [facility] Internal Medicine Work Phone: Comment on above: Room air 07-06-2015 09:03-0400 Respiratory Rate 18 /min Mirella Mccracken [facility] Internal Medicine Work Phone: Comment on above: Pattern: Unlabored 07-06-2015 09:03-0400 Weight 72.12 kg Mirella Mccracken [facility] Internal Medicine Work Phone: 04-19-2015 10:10-0400 BMI (Body Mass Index) 31.02 kg/m2 Mirella Mccracken [facility] Internal Medicine Work Phone: 04-19-2015 10:10-0400 Body Temperature 97.5 [degF] Mirella Mccracken [facility] Internal Medicine Work Phone: Comment on above: Method: Temporal 04-19-2015 10:10-0400 Body weight 69.67 kg Mirella Mccracken [facility] Internal Medicine Work Phone: 04-19-2015 10:10-0400 BP Diastolic 82 mm[Hg] Mirella Mccracken [facility] Internal Medicine Work Phone: Comment on above: Patient Position: Sitting; Cuff Location : Left Arm; Cuff Size: Standard 04-19-2015 10:10-0400 BP Systolic 124 mm[Hg] Mirella Mccracken [facility] Internal Medicine Work Phone: Comment on above: Patient Position: Sitting; Cuff Location : Left Arm; Cuff Size: Standard 04-19-2015 10:10-0400 BSA (Body Surface Area) 1.65 m2 Mirella Mccracken [facility] Internal Medicine Work Phone: 04-19-2015 10:10-0400 Height 149.86 cm Mirella Mccracken [facility] Internal Medicine Work Phone: 04-19-2015 [id number] Pulse (Heart Rate) 62 /min Mirella Mccracken [facility] Internal Medicine Work Phone: Comment on above: Pattern: Regular 04-19-2015 10:100400 Pulse Oximetry 98 % Mirella Mccracken [facility] Internal Medicine Work Phone: Comment on above: Room air 04-19-2015 10:100400 Respiratory Rate 16 /min Mirella Mccracken [facility] Internal Medicine Work Phone: Comment on above: Pattern: Unlabored 04-19-2015 10:10-0400 Weight 69.67 kg Mirella Mccracken [facility] Internal Medicine Work Phone: 01-11-2015 10:29-0400 BMI (Body Mass Index) 31.2 kg/m2 Mirella Mccracken [facility] Internal Medicine Work Phone: 01-11-2015 10:29-0400 Body weight 70.08 kg Mirella Mccracken [facility] Internal Medicine Work Phone: 01-11-2015 10:29-0400 BP Diastolic 80 mm[Hg] Mirella Mccracken [facility] Internal Medicine Work Phone: Comment on above: Patient Position: Sitting; Cuff Location : Left Arm; Cuff Size: Standard 01-11-2015 10:290400 BP Systolic 128 mm[Hg] Mirella Mccracken [facility] Internal Medicine Work Phone: Comment on above: Patient Position: Sitting; Cuff Location : Left Arm; Cuff Size: Standard 01-11-2015 10:290400 BSA (Body Surface Area) 1.65 m2 Mirella Mccracken [facility] Internal Medicine Work Phone: 01-11-2015 10:290400 Height 149.86 cm Mirella Mccracken [facility] Internal Medicine Work Phone: 01-11-2015 10:29-0400 Pulse (Heart Rate) 56 /min Mirella Mccracken [facility] Internal Medicine Work Phone: Comment [...] Unlabored 10-31-2014 11:54-0500 Weight 70.76 kg Mirella [facility] Work Phone: 10-12-2014 10:10-0500 Body Temperature 96.2 [degF] Mirella Mccracken [facility] Work Phone: Comment on above: Method: Oral [facility] 03/2014[facility] 10-12-2014 10:10-0500 Body weight 70.76 kg Mirella Mccracken [facility] Work Phone: Comment on above: [facility] 03/2014[facility] 10-12-2014 10:10-0500 BP Diastolic 82 mm[Hg] Mirella Mccracken [facility] Work Phone: Comment on above: Patient Position: Sitting; Cuff Location : Left Arm; Cuff Size: Large [facility] 03/2014[facility] 10-12-2014 10:10-0500 BP Systolic 132 mm[Hg] Mirella Mccracken [facility] Work Phone: Comment on above: Patient Position: Sitting; Cuff Location : Left Arm; Cuff Size: Large [facility] 03/2014[facility] 10-12-2014 10:10-0500 Pulse (Heart Rate) 61 /min Mirella Mccracken [facility] Work Phone: Comment on above: Pattern: Regular [facility] 03/2014[facility] 10-12-2014 10:10-0500 Pulse Oximetry 96 % Mirella Mccracken [facility] Work Phone: Comment on above: Room air [facility] 03/2014[facility] 10-12-2014 10:10-0500 Respiratory Rate 18 /min Mirella Mccracken [facility] Work Phone: Comment on above: Pattern: Unlabored [facility] 03/2014[facility] 10-12-2014 10:10-0500 Weight 70.76 kg Mirella Mccracken [facility] Work Phone: Comment on above: [facility] 03/2014[facility] 08-31-2014 11:25-0500 Body weight 68.66 kg Mirella Mccracken [facility] Work Phone: 08-31-2014 11:25-0500 BP Diastolic 82 mm[Hg] Mirella Mccracken [facility] Work Phone: Comment on above: Patient Position: Sitting; Cuff Location : Left Arm; Cuff Size: Large 08-31-2014 11:25-0500 BP Systolic 138 mm[Hg] Mirella Mccracken [facility] Medicine Work Phone: Comment on above: Patient Position: Sitting; Cuff Location : Left Arm; Cuff Size: Large 08-31-2014 11:25-0500 Pulse (Heart Rate) 56 /min Mirella Mccracken [facility] Internal Medicine Work Phone: Comment on above: Pattern: Regular 08-31-2014 11:25-0500 Respiratory Rate 18 /min Mirella Mccracken [facility] Internal Medicine Work Phone: Comment on above: Pattern: Unlabored 08-31-2014 11:25-0500 Weight 68.66 kg Mirella Mccracken [facility] Internal Medicine Work Phone: 08-14-2014 14:10-0500 Body Temperature 97.3 [degF] Mirella Mccracken [facility] Internal Medicine Work Phone: Comment on above: Method: Oral 08-14-2014 14:10-0500 Body weight 69.15 kg Mirella Mccracken [facility] Internal Medicine Work Phone: 08-14-2014 14:10-0500 BP Diastolic 72 mm[Hg] Mirella Mccracken [facility] Internal Medicine Work Phone: Comment on above: Patient Position: Sitting; Cuff Location : Left Arm; Cuff Size: Standard 08-14-2014 14:10-0500 BP Systolic 132 mm[Hg] Mirella Mccracken [facility] Internal Medicine Work Phone: Comment on above: Patient Position: Sitting; Cuff Location : Left Arm; Cuff Size: Standard 08-14-2014 14:10-0500 Pulse (Heart Rate) 53 /min Mirella Mccracken [facility] Internal Medicine Work Phone: Comment on above: Pattern: Regular 08-14-2014 14:10-0500 Pulse Oximetry 97 % Mirella Mccracken [facility] Internal Medicine Work Phone: Comment on above: Room air 08-14-2014 14:10-0500 Respiratory Rate 16 /min Mirella Mccracken [facility] Internal Medicine Work Phone: Comment on above: Pattern: Unlabored 08-14-2014 14:10-0500 Weight 69.15 kg Mirella Mccracken [facility] Internal Medicine Work Phone: 07-26-2014 10:15-0500 BMI (Body Mass Index) 30.55 kg/m2 Mirella Mccracken [facility] Internal Medicine Work Phone: 07-26-2014 10:15-0500 Body Temperature 97.4 [degF] Mirella Mccracken [facility] Internal Medicine Work Phone: Comment on above: Method: Oral 07-26-2014 10:15-0500 Body weight 68.61 kg Mirella Mccracken [facility] Internal Medicine Work Phone: 07-26-2014 10:15-0500 BP Diastolic 70 mm[Hg] Mirella Mccracken [facility] Internal Medicine Work Phone: Comment on above: Patient Position: Sitting; Cuff Location : Left Arm; Cuff Size: Standard 07-26-2014 10:15-0500 BP Systolic 110 mm[Hg] Mirella Mccracken [facility] Internal Medicine Work Phone: Comment on above: Patient Position: Sitting; Cuff Location : Left Arm; Cuff Size: Standard 07-26-2014 10:15-0500 BSA (Body Surface Area) 1.64 m2 Mirella Mccracken [facility] Internal Medicine Work Phone: 07-26-2014 10:15-0500 Height 149.86 cm Mirella Mccracken [facility] Internal Medicine Work Phone: 07-26-2014 10:15-0500 Pulse (Heart Rate) 66 /min Mirella Mccracken [facility] Internal Medicine Work Phone: Comment on above: Pattern: Regular 07-26-2014 10:15-0500 Pulse Oximetry 95 % Mirella Mccracken [facility] Internal Medicine Work Phone: Comment on above: Room air 07-26-2014 10:15-0500 Respiratory Rate 15 /min Mirella Mccracken [facility] Internal Medicine Work Phone: 07-26-2014 10:15-0500 Weight 68.61 kg Mirella M[facility]rack[facility] Work Phone: 07-25-2014 14:56-0500 BMI (Body Mass Index) 30.55 kg/m2 Mirella Mccracken [facility] Work Phone: 07-25-2014 14:56-0500 Body weight 68.61 kg Mirella Mccracken [facility] Work Phone: 07-25-2014 14:56-0500 BP Diastolic 80 mm[Hg] Mirella Mccracken [facility] Work Phone: Comment on above: Patient Position: Sitting; Cuff Location : Left Arm; Cuff Size: Large 07-25-2014 14:56-0500 BP Systolic 140 mm[Hg] Mirella Mccracken [facility] Work Phone: Comment on above: Patient Position: Sitting; Cuff Location : Left Arm; Cuff Size: Large 07-25-2014 14:56-0500 BSA (Body Surface Area) 1.64 m2 Mirella Mccracken [facility] Work Phone: 07-25-2014 14:56-0500 Height 149.86 cm Mirella Mccracken [facility] Medicine Work Phone: 07-25-2014 14:56-0500 Pulse (Heart Rate) 59 /min Mirella Mccracken [facility] Work Phone: Comment on above: Pattern: Regular 07-25-2014 14:56-0500 Pulse Oximetry 98 % Mirella Mccracken [facility] Work Phone: Comment on above: Room air 07-25-2014 14:56-0500 Respiratory Rate 18 /min Mirella Mccracken [facility] Work Phone: Comment on above: Pattern: Unlabored 07-25-2014 14:56-0500 Weight 68.61 kg Mirella Mccracken [facility] Internal Medicine Work Phone: 07-13-2014 12:20-0400 BMI (Body Mass Index) 30.5 kg/m2 Mirella [facility] Work Phone: 07-13-2014 12:20-0400 Body weight 68.49 kg Mirella Mccracken [facility] Internal Medicine Work Phone: 07-13-2014 12:20-0400 BP Diastolic 78 mm[Hg] Mirella Mccracken [facility] Internal Medicine Work Phone: Comment on above: Patient Position: Sitting; Cuff Location : Left Arm; Cuff Size: Large 07-13-2014 12:20-0400 BP Systolic 138 mm[Hg] Mirella Mccracken [facility] Internal Medicine Work Phone: Comment on above: Patient Position: Sitting; Cuff Location : Left Arm; Cuff Size: Large 07-13-2014 12:20-0400 BSA (Body Surface Area) 1.64 m2 Mirella Mccracken [facility] Internal Medicine Work Phone: 07-13-2014 12:20-0400 Height 149.86 cm Mirella Mccracken [facility] Internal Medicine Work Phone: 07-13-2014 12:20-0400 Pulse (Heart Rate) 58 /min Mirella Mccracken [facility] Internal Medicine Work Phone: Comment on above: Pattern: Regular 07-13-2014 12:20-0400 Pulse Oximetry 96 % Mirella Mccracken [facility] Internal Medicine Work Phone: Comment on above: Room air 07-13-2014 12:20-0400 Respiratory Rate 20 /min Mirella Mccracken [facility] Internal Medicine Work Phone: Comment on above: Pattern: Unlabored 07-13-2014 12:20-0400 Weight 68.49 kg Mirella Mccracken [facility] Internal Medicine Work Phone: 04-17-2014 11:27-0400 BMI (Body Mass Index) 30.59 kg/m2 Mirella [facility] Internal Medicine Work Phone: 04-17-2014 11:27-0400 Body weight 68.69 kg Mirella Mccracken [facility] Internal Medicine Work Phone: 04-17-2014 11:27-0400 BP Diastolic 70 mm[Hg] Mirella Mccracken [facility] Internal Medicine Work Phone: Comment on above: Patient Position: Sitting; Cuff Location : Left Arm; Cuff Size: Large 04-17-2014 11:27-0400 BP Systolic 124 mm[Hg] Mirella Mccracken [facility] Internal Medicine Work Phone: Comment on above: Patient Position: Sitting; Cuff Location : Left Arm; Cuff Size: Large 04-17-2014 11:27-0400 BSA (Body Surface Area) 1.64 m2 Mirella Mccracken [facility] Internal Medicine Work Phone: 04-17-2014 11:27-0400 Height 149.86 cm Mierlla Mccracken [facility] Medicine Work Phone: 04-17-2014 11:27-0400 Pulse (Heart Rate) 72 /min Mirella Mccracken [facility] Internal Medicine Work Phone: Comment on above: Pattern: Regular 04-17-2014 11:27-0400 Pulse Oximetry 97 % Mirella Mccracken [facility] Internal Medicine Work Phone: Comment on above: Room air 04-17-2014 11:27-0400 Respiratory Rate 18 /min Mirella Mccracken [facility] Internal Medicine Work Phone: Comment on above: Pattern: Unlabored 04-17-2014 11:27-0400 Weight 68.69 kg Mirella Mccracken [facility] Internal Medicine Work Phone: 04-06-2014 11:09-0400 BMI (Body Mass Index) 30.59 kg/m2 Mirella Mccracken [facility] Internal Medicine Work Phone: 04-06-2014 11:09-0400 Body weight 68.69 kg Mirella Mccracken [facility] Internal Medicine Work Phone: 04-06-2014 11:09-0400 BP Diastolic 80 mm[Hg] Mirella Mccracken [facility] Internal Medicine Work Phone: Comment on above: Patient Position: Sitting; Cuff Location : Left Arm; Cuff Size: Standard 04-06-2014 11:09-0400 BP Systolic 142 mm[Hg] Mirella Mccracken [facility] Internal Medicine Work Phone: Comment on above: Patient Position: Sitting; Cuff Location : Left Arm; Cuff Size: Standard 04-06-2014 11:090400 BSA (Body Surface Area) 1.64 m2 Mirella Mccracken [facility] Internal Medicine Work Phone: 04-06-2014 11:09-0400 Height 149.86 cm Mirella Mccracken [facility] Internal Medicine Work Phone: 04-06-2014 11:09-0400 Pulse (Heart Rate) 73 /min Mirella Mccracken [facility] Internal Medicine Work Phone: Comment on above: Pattern: Regular 04-06-2014 11:0400 Pulse Oximetry 97 % Mirella Mccracken [facility] Internal Medicine Work Phone: Comment on above: Room air 04-06-2014 11:090400 Respiratory Rate 18 /min Mirella Mccracken [facility] Internal Medicine Work Phone: Comment on above: Pattern: Unlabored 04-06-2014 11:090400 Weight 68.69 kg Mirella Mccracken [facility] Internal Medicine Work Phone: 12-30-2013 10:27-0400 BMI (Body Mass Index) 32.03 kg/m2 Mirella Mccracken [facility] Internal Medicine Work Phone: 12-30-2013 10:27-0400 Body Temperature 98.2 [degF] Mirella Mccracken [facility] Internal Medicine Work Phone: Comment on above: Method: Oral 12-30-2013 10:27-0400 Body weight 71.92 kg Mirella Mccracken [facility] Internal Medicine Work Phone: 12-30-2013 10:27-0400 BP Diastolic 70 mm[Hg] Mirella Mccracken [facility] Internal Medicine Work Phone: Comment on above: Patient Position: Sitting; Cuff Location : Left Arm; Cuff Size: Large 12-30-2013 10:27-0400 BP Systolic 120 mm[Hg] Mirella Mccracken [facility] Internal Medicine Work Phone: Comment on above: Patient Position: Sitting; Cuff Location : Left Arm; Cuff Size: Large 12-30-2013 10:0400 BSA (Body Surface Area) 1.67 m2 Mirella Mccracken [facility] Internal Medicine Work Phone: 12-30-2013 10:27-0400 Height 149.86 cm Mirella Mccracken [facility] Internal Medicine Work Phone: 12-30-2013 10:27-0400 Pulse (Heart Rate) 66 /min Mirella Mccracken [facility] Internal Medicine Work Phone: Comment on above: Pattern: Regular 12-30-2013 10:27-0400 Pulse Oximetry 97 % Mirella Mccracken [facility] Internal Medicine Work Phone: Comment on above: Room air 12-30-2013 10:27-0400 Respiratory Rate 20 /min Mirella Mccracken [facility] Internal Medicine Work Phone: Comment on above: Pattern: Unlabored 12-30-2013 10:0400 Weight 71.92 kg Mirella Mccracken [facility] Medicine Work Phone: 12-22-2013 10:090400 BMI (Body Mass Index) 31.79 kg/m2 Mirella Mccracken [facility] Internal Medicine Work Phone: 12-22-2013 10:090400 Body Temperature 98.2 [degF] Mirella Mccracken [facility] Medicine Work Phone: Comment on above: Method: Oral 12-22-2013 10:0400 Body weight 71.39 kg Mirella Mccracken [facility] Internal Medicine Work Phone: 12-22-2013 10:09-0400 BP Diastolic 60 mm[Hg] Mirella Mccracken [facility] Internal Medicine Work Phone: Comment on above: Patient Position: Sitting; Cuff Location : Left Arm; Cuff Size: Large 12-22-2013 10:09-0400 BP Systolic 104 mm[Hg] Mirella Mccracken [facility] Medicine Work Phone: Comment on above: Patient Position: Sitting; Cuff Location : Left Arm; Cuff Size: Large 12-22-2013 10:09-0400 BSA (Body Surface Area) 1.67 m2 Mirella Mccracken [facility] Medicine Work Phone: 12-22-2013 10:09-0400 Height 149.86 cm Mirella Mccracken [facility] Medicine Work Phone: 12-22-2013 10:09-0400 Pulse (Heart Rate) 65 /min Mirella Mccracken [facility] Work Phone: Comment on above: Pattern: Regular 12-22-2013 10:09-0400 Pulse Oximetry 98 % Mirella Mccracken [facility] Medicine Work Phone: Comment on above: Room air 12-22-2013 10:09-0400 Respiratory Rate 20 /min Mirella Mccracken [facility] Medicine Work Phone: Comment on above: Pattern: Unlabored 12-22-2013 10:09-0400 Weight 71.39 kg Mirella Mccracken [facility] Work Phone: 12-01-2013 09:54-0400 BMI (Body Mass Index) 32.32 kg/m2 Mirella Mccracken [facility] Medicine Work Phone: 12-01-2013 09:54-0400 Body Temperature 98.4 [degF] Mirella Mccracken [facility] Medicine Work Phone: Comment on above: Method: Temporal 12-01-2013 09:54-0400 Body weight 72.58 kg Mirella Mccracken [facility] Work Phone: 12-01-2013 09:54-0400 BP Diastolic 62 mm[Hg] Mirella Mccracken [facility] Work Phone: Comment on above: Patient Position: Sitting; Cuff Location : Left Arm; Cuff Size: Standard 12-01-2013 09:54-0400 BP Systolic 124 mm[Hg] Mirella Mccracken [facility] Work Phone: Comment on above: Patient Position: Sitting; Cuff Location : Left Arm; Cuff Size: Standard 12-01-2013 09:54-0400 BSA (Body Surface Area) 1.68 m2 Mirella Mccracken [facility] Work Phone: 12-01-2013 09:54-0400 Height 149.86 cm Mirella Mccracken [facility] Work Phone: 12-01-2013 09:54-0400 Pulse (Heart Rate) 69 /min Mirella Mccracken [facility] Work Phone: Comment on above: Pattern: Regular 12-01-2013 09:54-0400 Pulse Oximetry 97 % Mirella Mccracken [facility] Work Phone: Comment on above: Room air 12-01-2013 09:54-0400 Respiratory Rate 16 /min Mirella Mccracken [facility] Work Phone: Comment on above: Pattern: Unlabored 12-01-2013 09:54-0400 Weight 72.58 kg Mirella Mccracken [facility] Work Phone: 09-23-2013 11:57-0500 BMI (Body Mass Index) 33.01 kg/m2 Mirella Mccracken [facility] Work Phone: 09-23-2013 11:57-0500 Body weight 74.14 kg Mirella Mccracken [facility] Work Phone: 09-23-2013 11:57-0500 BP Diastolic 80 mm[Hg] Mirella Mccracken [facility] Work Phone: Comment on above: Patient Position: Sitting; Cuff Location : Left Arm; Cuff Size: Large 09-23-2013 11:57-0500 BP Systolic 122 mm[Hg] Mirella Mccracken [facility] Work Phone: Comment on above: Patient Position: Sitting; Cuff Location : Left Arm; Cuff Size: Large 09-23-2013 11:57-0500 BSA (Body Surface Area) 1.69 m2 Mirella Mccracken [facility] Work Phone: 09-23-2013 11:57-0500 Height 149.86 cm Mirella Mccracken [facility] Work Phone: 09-23-2013 11:57-0500 Pulse (Heart Rate) 66 /min Mirella Mccracken [facility] Work Phone: Comment on above: Pattern: Regular 09-23-2013 11:57-0500 Pulse Oximetry 98 % Mirella Mccracken [facility] Work Phone: Comment on above: Room air 09-23-2013 11:57-0500 Respiratory Rate 18 /min Mirella Mccracken [facility] Work Phone: Comment on above: Pattern: Unlabored 09-23-2013 11:57-0500 Weight 74.14 kg Mirella Mccracken [facility] Work Phone: 08-01-2013 10:54-0500 BMI (Body Mass Index) 33.58 kg/m2 Mirella Mccracken [facility] Medicine Work Phone: 08-01-2013 10:54-0500 Body Temperature 98.3 [degF] Mirella Mccracken [facility] Work Phone: Comment on above: Method: Oral 08-01-2013 10:54-0500 Body weight 75.41 kg iMrella Mccracken [facility] Work Phone: 08-01-2013 10:54-0500 BP Diastolic 60 mm[Hg] Mirella Mccracken [facility] Work Phone: Comment on above: Patient Position: Sitting; Cuff Location : Left Arm; Cuff Size: Large 08-01-2013 10:54-0500 BP Systolic 102 mm[Hg] Mirella Mccracken [facility] Work Phone: Comment on above: Patient Position: Sitting; Cuff Location : Left Arm; Cuff Size: Large 08-01-2013 10:54-0500 BSA (Body Surface Area) 1.7 m2 M[facility] Internal Medicine Work Phone: 08-01-2013 10:54-0500 Height 149.86 cm Mirella Mccracken [facility] Internal Medicine Work Phone: 08-01-2013 10:54-0500 Pulse (Heart Rate) 68 /min Mirella Mccracken [facility] Internal Medicine Work Phone: Comment on above: Pattern: Regular 08-01-2013 10:54-0500 Pulse Oximetry 97 % Mirella Mccracken [facility] Internal Medicine Work Phone: Comment on above: Room air 08-01-2013 10:54-0500 Respiratory Rate 20 /min Mirella Mccracken [facility] Internal Medicine Work Phone: Comment on above: Pattern: Unlabored 08-01-2013 10:54-0500 Weight 75.41 kg Mirella Mccracken [facility] Medicine Work Phone: 07-04-2013 09:33-0400 BMI (Body Mass Index) 33.73 kg/m2 Mirella Mccracken [facility] Internal Medicine Work Phone: Comment on above: hearing wntrisha Jones 07-04-2013 09:33-0400 Body Temperature 98.2 [degF] [facility] Work [facility]: Comment on above: Method: Oral hearing denae Jones 07-04-2013 09:33-0400 Body weight 75.75 kg [facility] Work Phone: Comment on above: hearing denae Jones 07-04-2013 09:33-0400 BP Diastolic 62 mm[Hg] Mirella [facility] Internal Medicine Work Phone: Comment on above: Patient Position: Sitting; Cuff Location : Left Arm; Cuff Size: Large adarsh Jones 07-04-2013 09:33-0400 BP Systolic 120 mm[Hg] [facility] Work Phone: Comment on above: Patient Position: Sitting; Cuff Location : Left Arm; Cuff Size: Large adarsh Jones 07-04-2013 09:33-0400 BSA (Body Surface Area) 1.71 m2 Mirella [facility] Internal Medicine Work Phone: Comment on above: hearing denae Jones 07-04-2013 09:33-0400 Height 149.86 cm Mirella [facility] Medicine Work Phone: Comment on above: hearing yazminlvольга Jones 07-04-2013 09:33-0400 Pulse (Heart Rate) 52 /min Mirella Mccracken [facility] Internal Medicine Work Phone: Comment on above: Pattern: Regular hearing wnlvision Dr Samaria Jones 07-04-2013 09:33-0400 Pulse Oximetry 97 % Mirella Mccracken [facility] Internal Medicine Work Phone: Comment on above: Room air hearing wnlvision Dr Samaria Jones 07-04-2013 09:33-0400 Respiratory Rate 20 /min Mirella Mccracken [facility] Internal Medicine Work Phone: Comment on above: Pattern: Unlabored hearing wnlvision Dr Samaria Jones 07-04-2013 09:33-0400 Weight 75.75 kg Mirella Mccracken [facility] Internal Medicine Work Phone: Comment on above: hearing wnlvision Dr. Jones 06-27-2013 14:49-0400 BMI (Body Mass Index) 33.73 kg/m2 Mirella Mccracken [facility] Internal Medicine Work Phone: 06-27-2013 14:49-0400 Body weight 75.75 kg Mirella Mccracken [facility] Internal Medicine Work Phone: 06-27-2013 14:49-0400 BP Diastolic 62 mm[Hg] Mirella Mccracken [facility] Internal Medicine Work Phone: Comment on above: Patient Position: Sitting; Cuff Location : Left Arm; Cuff Size: Large 06-27-2013 14:49-0400 BP Systolic 128 mm[Hg] Mirella Mccracken [facility] Internal Medicine Work Phone: Comment on above: Patient Position: Sitting; Cuff Location : Left Arm; Cuff Size: Large 06-27-2013 14:49-0400 BSA (Body Surface Area) 1.71 m2 Mirella Mccracken [facility] Internal Medicine Work Phone: 06-27-2013 14:49-0400 Height 149.86 cm Mirella Mccracken [facility] Internal Medicine Work Phone: 06-27-2013 14:49-0400 Pulse (Heart Rate) 61 /min Mirella Mccracken [facility] Internal Medicine Work Phone: Comment on above: Pattern: Regular 06-27-2013 14:49-0400 Pulse Oximetry 98 % Mirella Mccracken [facility] Internal Medicine Work Phone: Comment on above: Room air 06-27-2013 14:49-0400 Respiratory Rate 20 /min Mirella Mccracken [facility] Internal Medicine Work Phone: Comment on above: Pattern: Unlabored 06-27-2013 14:49-0400 Weight 75.75 kg Mirella Mccracken [facility] Internal Medicine Work Phone: 06-20-2013 12:56-0400 BMI (Body Mass Index) 33.53 kg/m2 Mirella Mccracken [facility] Internal Medicine Work Phone: 06-20-2013 12:56-0400 Body Temperature 97.6 [degF] Mirella Mccracken [facility] Internal Medicine Work Phone: Comment on above: Method: Oral 06-20-2013 12:56-0400 Body weight 75.3 kg Mirella Mccracken [facility] Internal Medicine Work Phone: 06-20-2013 12:56-0400 BP Diastolic 68 mm[Hg] Mirella Mccracken [facility] Internal Medicine Work Phone: Comment on above: Patient Position: Sitting; Cuff Location : Left Arm; Cuff Size: Standard 06-20-2013 12:56-0400 BP Systolic 118 mm[Hg] Mirella Mccracken [facility] Internal Medicine Work Phone: Comment on above: Patient Position: Sitting; Cuff Location : Left Arm; Cuff Size: Standard 06-20-2013 12:56-0400 BSA (Body Surface Area) 1.7 m2 Mirella Mccracken [facility] Internal Medicine Work Phone: 06-20-2013 12:56-0400 Height 149.86 cm Mirella Mccracken [facility] Internal Medicine Work Phone: 06-20-2013 12:56-0400 Pulse (Heart Rate) 68 /min Mirella Mccracken [facility] Internal Medicine Work Phone: Comment on above: Pattern: Regular 06-20-2013 12:56-0400 Respiratory Rate 20 /min Mirella Mccracken [facility] Internal Medicine Work Phone: Comment on above: Pattern: Unlabored 06-20-2013 12:56-0400 Weight 75.3 kg Mirella Mccracken [facility] Internal Medicine Work Phone: 05-20-2013 08:13-0400 BMI (Body Mass Index) 33.63 kg/m2 Mirella Mccracken [facility] Internal Medicine Work Phone: 05-20-2013 08:13-0400 Body weight 75.52 kg Mirella Mccracken [facility] Internal Medicine Work Phone: 05-20-2013 08:13-0400 BP Diastolic 62 mm[Hg] Mirella Mccracken [facility] Internal Medicine Work Phone: Comment on above: Patient Position: Sitting; Cuff Location : Left Arm; Cuff Size: Standard 05-20-2013 08:13-0400 BP Systolic 128 mm[Hg] Mirella Mccracken [facility] Internal Medicine Work Phone: Comment on above: Patient Position: Sitting; Cuff Location : Left Arm; Cuff Size: Standard 05-20-2013 08:13-0400 BSA (Body Surface Area) 1.71 m2 Mirella Mccracken [facility] Internal Medicine Work Phone: 05-20-2013 08:13-0400 Height 149.86 cm Mirella Mccracken [facility] Internal Medicine Work Phone: 05-20-2013 08:13-0400 Pulse (Heart Rate) 60 /min Mirella Mccracken [facility] Internal Medicine Work Phone: Comment on above: Pattern: Regular 05-20-2013 08:13-0400 Respiratory Rate 20 /min Mirella Mccracken [facility] Internal Medicine Work Phone: Comment on above: Pattern: Unlabored 05-20-2013 08:13-0400 Weight 75.52 kg Mirella Mccracken [facility] Internal Medicine Work Phone: 04-22-2013 15:16-0400 BMI (Body Mass Index) 33.63 kg/m2 [facility] Internal Medicine Work Phone: 04-22-2013 15:16-0400 Body Temperature 96 [degF] Mirella Mccracken [facility] Internal Medicine Work Phone: Comment on above: Method: Oral 04-22-2013 15:16-0400 Body weight 75.52 kg Mirella Mccracken [facility] Internal Medicine Work Phone: 04-22-2013 15:16-0400 BP Diastolic 74 mm[Hg] Mirella Mccracken [facility] Internal Medicine Work Phone: Comment on above: Patient Position: Sitting; Cuff Location : Left Arm; Cuff Size: Large 04-22-2013 15:16-0400 BP Systolic 126 mm[Hg] Mirella Mccracken [facility] Internal Medicine Work Phone: Comment on above: Patient Position: Sitting; Cuff Location : Left Arm; Cuff Size: Large 04-22-2013 15:16-0400 BSA (Body Surface Area) 1.71 m2 Mirella Mccracken [facility] Internal Medicine Work Phone: 04-22-2013 15:16-0400 Height 149.86 cm Mirella Mccracken [facility] Internal Medicine Work Phone: 04-22-2013 15:16-0400 Pulse (Heart Rate) 64 /min Mirella Mccracken [facility] Internal Medicine Work Phone: Comment on above: Pattern: Regular 04-22-2013 15:16-0400 Respiratory Rate 18 /min Mirella Mccracken [facility] Internal Medicine Work Phone: Comment on above: Pattern: Unlabored 04-22-2013 15:16-0400 Weight 75.52 kg Mirella Mccracken [facility] Internal Medicine Work Phone: 04-15-2013 15:12-0400 BMI (Body Mass Index) 34.65 kg/m2 Mirella Mccracken [facility] Internal Medicine Work Phone: 04-15-2013 15:12-0400 Body Temperature 98 [degF] Mirella Mccracken [facility] Internal Medicine Work Phone: Comment on above: Method: Oral 04-15-2013 15:12-0400 Body weight 77.82 kg Mirella Mccracken [facility] Internal Medicine Work Phone: 04-15-2013 15:12-0400 BP Diastolic 70 mm[Hg] Mirella Mccracken [facility] Internal Medicine Work Phone: Comment on above: Patient Position: Sitting; Cuff Location : Left Arm; Cuff Size: Standard 04-15-2013 15:12-0400 BP Systolic 120 mm[Hg] Mirella Mccracken [facility] Internal Medicine Work Phone: Comment on above: Patient Position: Sitting; Cuff Location : Left Arm; Cuff Size: Standard 04-15-2013 15:12-0400 BSA (Body Surface Area) 1.73 m2 Mirella Mccracken [facility] Internal Medicine Work Phone: 04-15-2013 15:12-0400 Height 149.86 cm Mirella Mccracken [facility] Internal Medicine Work Phone: 04-15-2013 15:12-0400 Pulse (Heart Rate) 64 /min Mirella Mccracken [facility] Internal Medicine Work Phone: Comment on above: Pattern: Regular 04-15-2013 15:12-0400 Pulse Oximetry 98 % Mirella Mccracken [facility] Internal Medicine Work Phone: Comment on above: Room air 04-15-2013 15:12-0400 Weight 77.82 kg Mirella Mccracken [facility] Internal Medicine Work Phone: 03-31-2013 11:15-0400 BMI (Body Mass Index) 32.96 kg/m2 Mirella Mccracken [facility] Internal Medicine Work Phone: 03-31-2013 11:15-0400 Body Temperature 97.5 [degF] Mirella Mccracken [facility] Internal Medicine Work Phone: Comment on above: Method: Oral 03-31-2013 11:15-0400 Body weight 74.02 kg Mirella Mccracken [facility] Internal Medicine Work Phone: 03-31-2013 11:15-0400 BP Diastolic 60 mm[Hg] Mirella Mccracken [facility] Internal Medicine Work Phone: Comment on above: Patient Position: Sitting; Cuff Location : Left Arm; Cuff Size: Large 03-31-2013 11:15-0400 BP Systolic 118 mm[Hg] Mirella Mccracken [facility] Internal Medicine Work Phone: Comment on above: Patient Position: Sitting; Cuff Location : Left Arm; Cuff Size: Large 03-31-2013 11:15-0400 BSA (Body Surface Area) 1.69 m2 Mirella Mccracken [facility] Internal Medicine Work Phone: 03-31-2013 11:15-0400 Height 149.86 cm Mirella Mccracken [facility] Internal Medicine Work Phone: 03-31-2013 11:15-0400 Pulse (Heart Rate) 60 /min Mirella Mccracken [facility] Internal Medicine Work Phone: Comment on above: Pattern: Regular 03-31-2013 11:15-0400 Respiratory Rate 20 /min Mirella Mccracken [facility] Internal Medicine Work Phone: Comment on above: Pattern: Unlabored 03-31-2013 11:15-0400 Weight 74.02 kg Mirella Mccracken [facility] Internal Medicine Work Phone: 02-28-2013 09:53-0400 BMI (Body Mass Index) 32.57 kg/m2 Mirella Mccracken [facility] Internal Medicine Work Phone: 02-28-2013 09:53-0400 Body Temperature 98.3 [degF] Mirella Mccracken [facility] Internal Medicine Work Phone: Comment on above: Method: Oral 02-28-2013 09:53-0400 Body weight 73.14 kg Mirella Mccracken [facility] Internal Medicine Work Phone: 02-28-2013 09:53-0400 BP Diastolic 62 mm[Hg] Mirella Mccracken [facility] Internal Medicine Work Phone: Comment on above: Patient Position: Sitting; Cuff Location : Left Arm; Cuff Size: Large 02-28-2013 09:53-0400 BP Systolic 120 mm[Hg] Mirella Mccracken [facility] Internal Medicine Work Phone: Comment on above: Patient Position: Sitting; Cuff Location : Left Arm; Cuff Size: Large 02-28-2013 09:53-0400 BSA (Body Surface Area) 1.68 m2 Mirella Mccracken [facility] Internal Medicine Work Phone: 02-28-2013 09:53-0400 Height 149.86 cm Mirella Mccracken [facility] Internal Medicine Work Phone: 02-28-2013 09:53-0400 Pulse (Heart Rate) 60 /min Mirella Mccracken [facility] Internal Medicine Work Phone: Comment on above: Pattern: Regular 02-28-2013 09:53-0400 Respiratory Rate 18 /min Mirella Mccracken [facility] Internal Medicine Work Phone: Comment on above: Pattern: Unlabored 02-28-2013 09:53-0400 Weight 73.14 kg Mirella Mccracken [facility] Internal Medicine Work Phone: 11-15-2012 14:01-0500 BMI (Body Mass Index) 32.57 kg/m2 Mirella Mccracken [facility] Internal Medicine Work Phone: 11-15-2012 14:01-0500 Body Temperature 97.9 [degF] Mirella Mccracken [facility] Internal Medicine Work Phone: Comment on above: Method: Oral 11-15-2012 14:01-0500 Body weight 73.14 kg Mirella Mccracken [facility] Internal Medicine Work Phone: 11-15-2012 14:01-0500 BP Diastolic 78 mm[Hg] [facility] Work Phone: Comment on above: Patient Position: Sitting; Cuff Location : Left Arm; Cuff Size: Large 11-15-2012 14:01-0500 BP Systolic 122 mm[Hg] Mirella Mccracken [facility] Internal Medicine Work Phone: Comment on above: Patient Position: Sitting; Cuff Location : Left Arm; Cuff Size: Large 11-15-2012 14:01-0500 BSA (Body Surface Area) 1.68 m2 Mirella Mccracken [facility] Internal Medicine Work Phone: 11-15-2012 14:01-0500 Height 149.86 cm [facility] Work Phone: 11-15-2012 14:01-0500 Pulse (Heart Rate) 72 /min Mirella Mccracken [facility] Internal Medicine Work Phone: Comment on above: Pattern: Regular 11-15-2012 14:01-0500 Respiratory Rate 20 /min Mirella Mccracken [facility] Internal Medicine Work Phone: Comment on above: Pattern: Unlabored 11-15-2012 14:01-0500 Weight 73.14 kg Mirella Mccracken [facility] Internal Medicine Work Phone: 10-25-2012 11:26-0500 BMI (Body Mass Index) 32.74 kg/m2 Mirella Mccracken [facility] Internal Medicine Work Phone: 10-25-2012 11:26-0500 Body Temperature 98.3 [degF] Mirella Mccracken [facility] Internal Medicine Work Phone: Comment on above: Method: Oral 10-25-2012 11:26-0500 Body weight 73.54 kg Mirella Mccracken [facility] Internal Medicine Work Phone: 10-25-2012 11:26-0500 BP Diastolic 62 mm[Hg] Mirella Mccracken [facility] Internal Medicine Work Phone: Comment on above: Patient Position: Sitting; Cuff Location : Right Arm; Cuff Size: Large 10-25-2012 11:26-0500 BP Systolic 144 mm[Hg] Mirella Mccracken [facility] Internal Medicine Work Phone: Comment on above: Patient Position: Sitting; Cuff Location : Right Arm; Cuff Size: Large 10-25-2012 11:26-0500 BSA (Body Surface Area) 1.69 m2 Mirella Mccracken [facility] Internal Medicine Work Phone: 10-25-2012 11:26-0500 Height 149.86 cm Mirella Mccracken [facility] Internal Medicine Work Phone: 10-25-2012 11:26-0500 Pulse (Heart Rate) 72 /min Mirella Mccracken [facility] Internal Medicine Work Phone: Comment on above: Pattern: Regular 10-25-2012 11:26-0500 Respiratory Rate 20 /min Mirella Mccracken [facility] Internal Medicine Work Phone: Comment on above: Pattern: Unlabored 10-25-2012 11:26-0500 Weight 73.54 kg Mirella Mccracken [facility] Internal Medicine Work Phone: 10-21-2012 09:46-0500 BMI (Body Mass Index) 32.74 kg/m2 Mirella Mccracken [facility] Internal Medicine Work Phone: 10-21-2012 09:46-0500 Body Temperature 97.6 [degF] Mirella Mccracken [facility] Internal Medicine Work Phone: Comment on above: Method: Oral 10-21-2012 09:46-0500 Body weight 73.54 kg Mirella Mccracken [facility] Internal Medicine Work Phone: 10-21-2012 09:46-0500 BP Diastolic 62 mm[Hg] Mirella Mccracken [facility] Internal Medicine Work Phone: Comment on above: Patient Position: Sitting; Cuff Location : Left Arm; Cuff Size: Large 10-21-2012 09:46-0500 BP Systolic 120 mm[Hg] Mirella Mccracken [facility] Internal Medicine Work Phone: Comment on above: Patient Position: Sitting; Cuff Location : Left Arm; Cuff Size: Large 10-21-2012 09:46-0500 BSA (Body Surface Area) 1.69 m2 Mirella Mccracken [facility] Internal Medicine Work Phone: 10-21-2012 09:46-0500 Height 149.86 cm Mirella Mccracken [facility] Internal Medicine Work Phone: 10-21-2012 09:46-0500 Pulse (Heart Rate) 64 /min Mirella Mccracken [facility] Internal Medicine Work Phone: Comment on above: Pattern: Regular 10-21-2012 09:46-0500 Respiratory Rate 20 /min Mirella Mccracken [facility] Internal Medicine Work Phone: Comment on above: Pattern: Unlabored 10-21-2012 09:46-0500 Weight 73.54 kg Mirella Mccracken [facility] Internal Medicine Work Phone: 09-30-2012 09:48-0500 BMI (Body Mass Index) 32.74 kg/m2 Mirella Mccracken [facility] Internal Medicine Work Phone: 09-30-2012 09:48-0500 Body Temperature 98.2 [degF] Mirella Mccracken [facility] Internal Medicine Work Phone: Comment on above: Method: Oral 09-30-2012 09:48-0500 Body weight 73.54 kg Mirella Mccracken [facility] Internal Medicine Work Phone: 09-30-2012 09:48-0500 BP Diastolic 76 mm[Hg] Mirella Mccracken [facility] Internal Medicine Work Phone: Comment on above: Patient Position: Sitting; Cuff Location : Left Arm; Cuff Size: Standard 09-30-2012 09:48-0500 BP Systolic 122 mm[Hg] Mirella Mccracken [facility] Internal Medicine Work Phone: Comment on above: Patient Position: Sitting; Cuff Location : Left Arm; Cuff Size: Standard 09-30-2012 09:48-0500 BSA (Body Surface Area) 1.69 m2 Mirella Mccracken [facility] Internal Medicine Work Phone: 09-30-2012 09:48-0500 Height 149.86 cm Mirella Mccracken [facility] Internal Medicine Work Phone: 09-30-2012 09:48-0500 Pulse (Heart Rate) 58 /min Mirella Mccracken [facility] Internal Medicine Work Phone: Comment on above: Pattern: Regular 09-30-2012 09:48-0500 Pulse Oximetry 98 % Mirella Mccracken [facility] Internal Medicine Work Phone: Comment on above: Room air 09-30-2012 09:48-0500 Respiratory Rate 16 /min Mriella Mccracken [facility] Internal Medicine Work Phone: Comment on above: Pattern: Unlabored 09-30-2012 09:48-0500 Weight 73.54 kg Mirella Mccracken [facility] Internal Medicine Work Phone: 09-16-2012 09:47-0500 BMI (Body Mass Index) 32.74 kg/m2 Mirella [facility] Internal Medicine Work Phone: 09-16-2012 09:47-0500 Body Temperature 97 [degF] Mirella Mccracken [facility] Internal Medicine Work Phone: Comment on above: Method: Oral 09-16-2012 09:47-0500 Body weight 73.54 kg Mirella Mccracken [facility] Internal Medicine Work Phone: 09-16-2012 09:47-0500 BP Diastolic 76 mm[Hg] Mirella Mccracken [facility] Internal Medicine Work Phone: Comment on above: Patient Position: Sitting; Cuff Location : Left Arm; Cuff Size: Large 09-16-2012 09:47-0500 BP Systolic 128 mm[Hg] Mirella Mccracken [facility] Internal Medicine Work Phone: Comment on above: Patient Position: Sitting; Cuff Location : Left Arm; Cuff Size: Large 09-16-2012 09:47-0500 BSA (Body Surface Area) 1.69 m2 Mirella Mccracken [facility] Internal Medicine Work Phone: 09-16-2012 09:47-0500 Height 149.86 cm Mirella Mccracken [facility] Internal Medicine Work Phone: 09-16-2012 09:47-0500 Pulse (Heart Rate) 72 /min Mirella Mccracken [facility] Internal Medicine Work Phone: Comment on above: Pattern: Regular 09-16-2012 09:47-0500 Respiratory Rate 18 /min Mirella Mccracken [facility] Internal Medicine Work Phone: Comment on above: Pattern: Unlabored 09-16-2012 09:47-0500 Weight 73.54 kg Mirella Mccracken [facility] Internal Medicine Work Phone: 05-27-2012 09:32-0400 Body Temperature 96.9 [degF] Hung Dav[facility] Work Phone: 03-11-2012 13:42-0400 BMI (Body Mass Index) 28.88 kg/m2 Mirella [facility] Internal Medicine Work Phone: 03-11-2012 13:42-0400 Body Temperature 97.8 [degF] Mirella Mccracken [facility] Internal Medicine Work Phone: 03-11-2012 13:42-0400 Body weight 64.86 kg Mirella Mccracken [facility] Internal Medicine Work Phone: 03-11-2012 13:42-0400 BP Diastolic 70 mm[Hg] Mirella Mccracken [facility] Internal Medicine Work Phone: Comment on above: Patient Position: Sitting; Cuff Location : Left Arm; Cuff Size: Large 03-11-2012 13:42-0400 BP Systolic 124 mm[Hg] Mirella Mccracken [facility] Internal Medicine Work Phone: Comment on above: Patient Position: Sitting; Cuff Location : Left Arm; Cuff Size: Large 03-11-2012 13:42-0400 BSA (Body Surface Area) 1.6 m2 Mirella Mccracken [facility] Internal Medicine Work Phone: 03-11-2012 13:42-0400 Height 149.86 cm Mirella Mccracken [facility] Internal Medicine Work Phone: 03-11-2012 13:42-0400 Pulse (Heart Rate) 56 /min Mirella Mccracken [facility] Internal Medicine Work Phone: Comment on above: Pattern: Regular 03-11-2012 13:42-0400 Respiratory Rate 18 /min Mirella Mccracken [facility] Internal Medicine Work Phone: Comment on above: Pattern: Unlabored 03-11-2012 13:42-0400 Weight 64.86 kg Mirella Mccracken [facility] Internal Medicine Work Phone: 03-04-2012 12:12-0400 BMI (Body Mass Index) 28.96 kg/m2 Mirella Mccracken [facility] Internal Medicine Work Phone: 03-04-2012 12:12-0400 Body weight 65.03 kg Mirella Mccracken [facility] Internal Medicine Work Phone: 03-04-2012 12:12-0400 BP Diastolic 62 mm[Hg] Mirella Mccracken [facility] Internal Medicine Work Phone: Comment on above: Patient Position: Sitting; Cuff Location : Left Arm; Cuff Size: Large 03-04-2012 12:12-0400 BP Systolic 122 mm[Hg] Mirella Mccracken [facility] Internal Medicine Work Phone: Comment on above: Patient Position: Sitting; Cuff Location : Left Arm; Cuff Size: Large 03-04-2012 12:12-0400 BSA (Body Surface Area) 1.6 m2 Mirella Mccracken [facility] Internal Medicine Work Phone: 03-04-2012 12:12-0400 Height 149.86 cm Mirella Mccracken [facility] Internal Medicine Work Phone: 03-04-2012 12:12-0400 Pulse (Heart Rate) 60 /min Mirella Mccracken [facility] Internal Medicine Work Phone: Comment on above: Pattern: Regular 03-04-2012 12:12-0400 Respiratory Rate 20 /min [facility] Internal Medicine Work Phone: Comment on above: Pattern: Unlabored 03-04-2012 12:12-0400 Weight 65.03 kg Mirella Mccracken [facility] Internal Medicine Work Phone: 02-25-2012 13:29-0400 BMI (Body Mass Index) 28.96 kg/m2 Mirella Mccracken [facility] Internal Medicine Work Phone: 02-25-2012 13:29-0400 Body weight 65.03 kg Mirella Mccracken [facility] Internal Medicine Work Phone: 02-25-2012 13:29-0400 BP Diastolic 76 mm[Hg] Mirella Mccracken [facility] Internal Medicine Work Phone: Comment on above: Patient Position: Sitting; Cuff Location : Left Arm; Cuff Size: Standard 02-25-2012 13:29-0400 BP Systolic 120 mm[Hg] Mirella Mccracken [facility] Internal Medicine Work Phone: Comment on above: Patient Position: Sitting; Cuff Location : Left Arm; Cuff Size: Standard 02-25-2012 13:29-0400 BSA (Body Surface Area) 1.6 m2 Mirella Mccracken [facility] Internal Medicine Work Phone: 02-25-2012 13:29-0400 Height 149.86 cm Mirella Mccracken [facility] Internal Medicine Work Phone: 02-25-2012 13:29-0400 Pulse (Heart Rate) 68 /min Mirella Mccracken [facility] Internal Medicine Work Phone: Comment on above: Pattern: Regular 02-25-2012 13:29-0400 Respiratory Rate 20 /min Mirella Mccracken [facility] Internal Medicine Work Phone: Comment on above: Pattern: Unlabored 02-25-2012 13:29-0400 Weight 65.03 kg Mirella Mccracken [facility] Internal Medicine Work Phone: 01-30-2012 08:19-0400 BMI (Body Mass Index) 28.96 kg/m2 Mirella Mccracken [facility] Internal Medicine Work Phone: 01-30-2012 08:19-0400 Body weight 65.03 kg Mirella Mccracken [facility] Internal Medicine Work Phone: 01-30-2012 08:19-0400 BP Diastolic 70 mm[Hg] Mirella Mccracken [facility] Internal Medicine Work Phone: Comment on above: Patient Position: Sitting; Cuff Location : Left Arm; Cuff Size: Large 01-30-2012 08:19-0400 BP Systolic 120 mm[Hg] Mirella Mccracken [facility] Internal Medicine Work Phone: Comment on above: Patient Position: Sitting; Cuff Location : Left Arm; Cuff Size: Large 01-30-2012 08:19-0400 BSA (Body Surface Area) 1.6 m2 Mirella Mccracken [facility] Internal Medicine Work Phone: 01-30-2012 08:190400 Height 149.86 cm Mirella Mccracken [facility] Internal Medicine Work Phone: 01-30-2012 08:19-0400 Pulse (Heart Rate) 60 /min Mirella Mccracken [facility] Internal Medicine Work Phone: Comment on above: Pattern: Regular 01-30-2012 08:19-0400 Respiratory Rate 18 /min Mirella [facility] Internal Medicine Work Phone: Comment on above: Pattern: Unlabored 01-30-2012 08:19-0400 [facility] 65.03 [facility]: 01-15-2012 12:06-0400 BMI (Body Mass Index) 28.96 kg/m2 Mirella Mccracken [facility] Internal Medicine Work Phone: Comment on above: vison with correction ou=20/50 os=20/50 od=20/50hearing [facility] 01-15-2012 12:06-0400 Body Temperature 97 [degF] Mirella [facility] Internal Medicine Work Phone: Comment on above: Method: Oral vison with correctio n ou=20/50 os=20/50 od=20/50hearing [facility] 01-15-2012 12:06-0400 Body weight 65.03 kg Mirella [facility] Internal Medicine Work Phone: Comment on above: vison with correction ou=20/50 os=20/50 od=20/50hearing [facility] 01-15-2012 12:06-0400 BP Diastolic 60 mm[Hg] [facility] Medicine Work Phone: Comment on above: Patient Position: Sitting; Cuff Location : Left Arm; Cuff Size: Large vison with correctio n ou=20/50 os=20/50 od=20/50hearing [facility] 01-15-2012 12:06-0400 BP Systolic 118 mm[Hg] [facility] Internal Medicine Work Phone: Comment on above: Patient Position: Sitting; Cuff Location : Left Arm; Cuff Size: Large vison with correctio n ou=20/50 os=20/50 od=20/50hearing [facility] 01-15-2012 12:06-0400 BSA (Body Surface Area) 1.6 m2 [facility] Medicine Work Phone: Comment on above: vison with correction ou=20/50 os=20/50 od=20/50hearing [facility] 01-15-2012 12:06-0400 Height 149.86 cm Mirella Mccracken [facility] Internal Medicine Work Phone: Comment on above: vison with correction ou=20/50 os=20/50 od=20/50hearing [facility] 01-15-2012 12:06-0400 Pulse (Heart Rate) 68 /min Mirella Mccracken [facility] Internal Medicine Work Phone: Comment on above: Pattern: Regular vison with correctio n ou=20/50 os=20/50 od=20/50hearing [facility] 01-15-2012 12:06-0400 Respiratory Rate 20 /[facility]: Comment on above: Pattern: Unlabored vison with correctio n ou=20/50 os=20/50 od=20/50hearing [facility] 01-15-2012 12:06-0400 [facility] 65.03 [facility]: Comment on above: vison with correction ou=20/50 os=20/50 od=20/50hearing [facility] 12-31-2011 15:05-0400 BMI (Body Mass Index) 28.88 kg/m2 Mirella Mccracken [facility] Internal Medicine Work Phone: 12-31-2011 15:05-0400 Body weight 64.86 kg Mirella Mccracken [facility] Internal Medicine Work Phone: 12-31-2011 15:05-0400 BP Diastolic 78 mm[Hg] [facility]: Comment on above: Patient Position: Sitting; Cuff Location : Left Arm; Cuff Size: Large 12-31-2011 15:05-0400 BP Systolic 122 mm[Hg] [facility] Work [facility]: Comment on above: Patient Position: Sitting; Cuff Location : Left Arm; Cuff Size: Large 12-31-2011 15:05-0400 BSA (Body Surface Area) 1.6 m2 [facility] Work [facility]: 12-31-2011 15:05-0400 Height 149.86 cm Mirella Mccracken [facility] Internal Medicine Work Phone: 12-31-2011 15:05-0400 Pulse (Heart Rate) 60 /min Mirella Mccracken [facility] Internal Medicine Work Phone: Comment on above: Pattern: Regular 12-31-2011 15:05-0400 Respiratory Rate 18 /min Mirella Mccracken [facility] Internal Medicine Work Phone: Comment on above: Pattern: Unlabored 12-31-2011 15:05-0400 Weight 64.86 kg Mirella Mccracken [facility] Internal Medicine Work Phone: 12-26-2011 14:17-0400 BP Diastolic 62 mm[Hg] Mirella Mccracken [facility] Internal Medicine Work Phone: Comment on above: Patient Position: Sitting; Cuff Location : Left Arm; Cuff Size: Standard 12-26-2011 14:17-0400 BP Systolic 122 mm[Hg] Mirella Mccracken [facility] Internal Medicine Work Phone: Comment on above: Patient Position: Sitting; Cuff Location : Left Arm; Cuff Size: Standard 12-26-2011 14:17-0400 Pulse (Heart Rate) 58 /min Mirella Mccracken [facility] Internal Medicine Work Phone: Comment on above: Pattern: Regular 12-26-2011 14:17-0400 Pulse Oximetry 98 % Mirella Mccracken [facility] Internal Medicine Work Phone: Comment on above: Room air 12-26-2011 13:59-0400 Pulse (Heart Rate) 48 /min Mirella Mccracken [facility] Internal Medicine Work Phone: Comment on above: Pattern: Regular 12-26-2011 13:59-0400 Pulse Oximetry 95 % Mirella Mccracken [facility] Internal Medicine Work Phone: Comment on above: Room air 12-26-2011 13:13-0400 BMI (Body Mass Index) 29.49 kg/m2 Mirella Mccracken [facility] Internal Medicine Work Phone: 12-26-2011 13:13-0400 Body Temperature 97.8 [degF] Mirella Mccracken [facility] Internal Medicine Work Phone: Comment on above: Method: Oral 12-26-2011 13:130400 Body weight 66.23 kg Mirella Mccracken [facility] Internal Medicine Work Phone: 12-26-2011 13:13-0400 BP Diastolic 68 mm[Hg] Mirella Mccracken [facility] Internal Medicine Work Phone: Comment on above: Patient Position: Sitting; Cuff Location : Left Arm; Cuff Size: Standard 12-26-2011 13:13-0400 BP Systolic 114 mm[Hg] Mirella Mccracken [facility] Internal Medicine Work Phone: Comment on above: Patient Position: Sitting; Cuff Location : Left Arm; Cuff Size: Standard 12-26-2011 13:13-0400 BSA (Body Surface Area) 1.61 m2 Mirella Mccracken [facility] Internal Medicine Work Phone: 12-26-2011 13:13-0400 Height 149.86 cm Mirella Mccracken [facility] Internal Medicine Work Phone: 12-26-2011 13:13-0400 Pulse (Heart Rate) 54 /min Mirella Mccracken [facility] Internal Medicine Work Phone: Comment on above: Pattern: Regular 12-26-2011 13:13-0400 Pulse Oximetry 98 % Mirella Mccracken [facility] Internal Medicine Work Phone: Comment on above: Room air 12-26-2011 13:13-0400 Respiratory Rate 20 /min Mirella Mccracken [facility] Internal Medicine Work Phone: Comment on above: Pattern: Unlabored 12-26-2011 13:13-0400 Weight 66.23 kg Mirella Mccracken [facility] Internal Medicine Work Phone: 12-24-2011 14:07-0400 BMI (Body Mass Index) 29.5 kg/m2 Mirella Mccracken [facility] Internal Medicine Work Phone: 12-24-2011 14:07-0400 Body weight 66.25 kg Mirella Mccracken [facility] Internal Medicine Work Phone: 12-24-2011 14:07-0400 BP Diastolic 60 mm[Hg] Mirella Mccracken [facility] Internal Medicine Work Phone: Comment on above: Patient Position: Sitting; Cuff Location : Left Arm; Cuff Size: Large 12-24-2011 14:07-0400 BP Systolic 124 mm[Hg] Mirella Mccracken [facility] Internal Medicine Work Phone: Comment on above: Patient Position: Sitting; Cuff Location : Left Arm; Cuff Size: Large 12-24-2011 14:07-0400 BSA (Body Surface Area) 1.61 m2 Mirella Mccracken [facility] Internal Medicine Work Phone: 12-24-2011 14:07-0400 Height 149.86 cm Mirella Mccracken [facility] Internal Medicine Work Phone: 12-24-2011 14:07-0400 Pulse (Heart Rate) 60 /min Mirella Mccracken [facility] Internal Medicine Work Phone: Comment on above: Pattern: Regular 12-24-2011 14:07-0400 Respiratory Rate 18 /min Mirella Mccracken [facility] Internal Medicine Work Phone: Comment on above: Pattern: Unlabored 12-24-2011 14:07-0400 Weight 66.25 kg Mirelal Mccracken [facility] Internal Medicine Work Phone: 12-15-2011 09:30-0400 BMI (Body Mass Index) 29.31 kg/m2 Mirella Mccracken [facility] Internal Medicine Work Phone: 12-15-2011 09:30-0400 Body Temperature 97.9 [degF] Mirella Mccracken [facility] Internal Medicine Work Phone: Comment on above: Method: Oral 12-15-2011 09:30-0400 Body weight 65.83 kg Mirella Mccracken [facility] Internal Medicine Work Phone: 12-15-2011 09:30-0400 BP Diastolic 60 mm[Hg] Mirella Mccracken [facility] Internal Medicine Work Phone: Comment on above: Patient Position: Sitting; Cuff Location : Left Arm; Cuff Size: Large 12-15-2011 09:30-0400 BP Systolic 104 mm[Hg] Mirella Mccracken [facility] Internal Medicine Work Phone: Comment on above: Patient Position: Sitting; Cuff Location : Left Arm; Cuff Size: Large 12-15-2011 09:30-0400 BSA (Body Surface Area) 1.61 m2 Mirella Mccracken [facility] Internal Medicine Work Phone: 12-15-2011 09:30-0400 Height 149.86 cm Mirella Mccracken [facility] Internal Medicine Work Phone: 12-15-2011 09:30-0400 Pulse (Heart Rate) 60 /min Mirella Mccracken [facility] Internal Medicine Work Phone: Comment on above: Pattern: Regular 12-15-2011 09:30-0400 Respiratory Rate 18 /min Mirella Mccracken [facility] Internal Medicine Work Phone: Comment on above: Pattern: Unlabored 12-15-2011 09:30-0400 Weight 65.83 kg Mirella Mccracken [facility] Internal Medicine Work Phone: 11-26-2011 11:36-0400 BMI (Body Mass Index) 29.69 kg/m2 Mirella Mccracken [facility] Internal Medicine Work Phone: 11-26-2011 11:36-0400 Body Temperature 95.6 [degF] Mirella Mccracken [facility] Internal Medicine Work Phone: Comment on above: Method: Oral 11-26-2011 11:36-0400 Body weight 66.68 kg Mirella Mccracken [facility] Internal Medicine Work Phone: 11-26-2011 11:36-0400 BP Diastolic 62 mm[Hg] Mirella Mccracken [facility] Internal Medicine Work Phone: Comment on above: Patient Position: Sitting; Cuff Location : Left Arm; Cuff Size: Large 11-26-2011 11:36-0400 BP Systolic 118 mm[Hg] Mirella Mccracken [facility] Internal Medicine Work Phone: Comment on above: Patient Position: Sitting; Cuff Location : Left Arm; Cuff Size: Large 11-26-2011 11:36-0400 BSA (Body Surface Area) 1.62 m2 Mirella Mccracken [facility] Internal Medicine Work Phone: 11-26-2011 11:36-0400 Height 149.86 cm Mirella Mccracken [facility] Internal Medicine Work Phone: 11-26-2011 11:36-0400 Pulse (Heart Rate) 64 /min Mirella Mccracken [facility] Internal Medicine Work Phone: Comment on above: Pattern: Regular 11-26-2011 11:36-0400 Respiratory Rate 20 /min Mirella Mccracken [facility] Internal Medicine Work Phone: Comment on above: Pattern: Unlabored 11-26-2011 11:36-0400 Weight 66.68 kg Mirella Mccracken [facility] Internal Medicine Work Phone: 11-12-2011 12:55-0500 BMI (Body Mass Index) 30.51 kg/m2 Mirella Mccracken [facility] Internal Medicine Work Phone: 11-12-2011 12:55-0500 Body weight 68.52 kg Mirella Mccracken [facility] Internal Medicine Work Phone: 11-12-2011 12:55-0500 BP Diastolic 60 mm[Hg] Mirella Mccracken [facility] Internal Medicine Work Phone: Comment on above: Patient Position: Sitting; Cuff Location : Left Arm; Cuff Size: Large 11-12-2011 12:55-0500 BP Systolic 112 mm[Hg] Mirella Mccracken [facility] Internal Medicine Work Phone: Comment on above: Patient Position: Sitting; Cuff Location : Left Arm; Cuff Size: Large 11-12-2011 12:55-0500 BSA (Body Surface Area) 1.64 m2 Mirella Mccracken [facility] Internal Medicine Work Phone: 11-12-2011 12:55-0500 Height 149.86 cm Mirella Mccracken [facility] Internal Medicine Work Phone: 11-12-2011 12:55-0500 Pulse (Heart Rate) 68 /min Mirella Mccracken [facility] Internal Medicine Work Phone: Comment on above: Pattern: Regular 11-12-2011 12:55-0500 Respiratory Rate 20 /min Mirella Mccracken [facility] Internal Medicine Work Phone: Comment on above: Pattern: Unlabored 11-12-2011 12:55-0500 Weight 68.52 kg Mirella Mccracken [facility] Internal Medicine Work Phone: 11-06-2011 12:18-0500 BMI (Body Mass Index) 30.09 kg/m2 Mirella Mccracken [facility] Internal Medicine Work Phone: 11-06-2011 12:18-0500 Body Temperature 98.1 [degF] Mirella Mccracken [facility] Internal Medicine Work Phone: Comment on above: Method: Oral 11-06-2011 12:18-0500 Body weight 67.59 kg Mirella Mccracken [facility] Internal Medicine Work Phone: 11-06-2011 12:18-0500 BP Diastolic 70 mm[Hg] Mirella Mccracken [facility] Internal Medicine Work Phone: Comment on above: Patient Position: Sitting; Cuff Location : Left Arm; Cuff Size: Large 11-06-2011 12:18-0500 BP Systolic 134 mm[Hg] Mirella Mccracken [facility] Internal Medicine Work Phone: Comment on above: Patient Position: Sitting; Cuff Location : Left Arm; Cuff Size: Large 11-06-2011 12:18-0500 BSA (Body Surface Area) 1.63 m2 Mirella Mccracken [facility] Internal Medicine Work Phone: 11-06-2011 12:18-0500 Height 149.86 cm Mirella Mccracken [facility] Internal Medicine Work Phone: 11-06-2011 12:18-0500 Pulse (Heart Rate) 68 /min Mirella Mccracken [facility] Internal Medicine Work Phone: Comment on above: Pattern: Regular 11-06-2011 12:18-0500 Respiratory Rate 20 /min Mirella Mccracken [facility] Internal Medicine Work Phone: Comment on above: Pattern: Unlabored 11-06-2011 12:18-0500 Weight 67.59 kg Mirella Mccracken [facility] Internal Medicine Work Phone: 10-21-2011 13:27-0500 Body Temperature 97.9 [degF] Mirella Mccracken [facility] Internal Medicine Work Phone: 10-21-2011 13:27-0500 Body weight 67.54 kg Mirella Mccracken [facility] Internal Medicine Work Phone: 10-21-2011 13:27-0500 BP Diastolic 92 mm[Hg] Mirella Mccracken [facility] Internal Medicine Work Phone: Comment on above: Patient Position: Sitting; Cuff Location : Left Arm; Cuff Size: Standard 10-21-2011 13:27-0500 BP Systolic 152 mm[Hg] Mirella Mccracken [facility] Internal Medicine Work Phone: Comment on above: Patient Position: Sitting; Cuff Location : Left Arm; Cuff Size: Standard 10-21-2011 13:27-0500 Pulse (Heart Rate) 99 /min Mirella Mccracken [facility] Internal Medicine Work Phone: Comment on above: Pattern: Regular 10-21-2011 13:27-0500 Pulse Oximetry 92 % Mirella Mccracken [facility] Internal Medicine Work Phone: Comment on above: Room air 10-21-2011 13:27-0500 Respiratory Rate 17 /min Mirella Mccracken [facility] Internal Medicine Work Phone: Comment on above: Pattern: Unlabored 10-21-2011 13:27-0500 Weight 67.54 kg Mirella Mccracken [facility] Internal Medicine Work Phone: 06-05-2011 09:34-0400 BMI (Body Mass Index) 30.14 kg/m2 Mirella Mccracken [facility] Internal Medicine Work Phone: 06-05-2011 09:34-0400 Body Temperature 98.5 [degF] Mirella Mccracken [facility] Internal Medicine Work Phone: Comment on above: Method: Oral 06-05-2011 09:34-0400 Body weight 67.7 kg Mirella Mccracken [facility] Internal Medicine Work Phone: 06-05-2011 09:34-0400 BP Diastolic 78 mm[Hg] Mirella Mccracken [facility] Internal Medicine Work Phone: Comment on above: Patient Position: Sitting; Cuff Location : Left Arm; Cuff Size: Large 06-05-2011 09:34-0400 BP Systolic 142 mm[Hg] Mirella Mccracken [facility] Internal Medicine Work Phone: Comment on above: Patient Position: Sitting; Cuff Location : Left Arm; Cuff Size: Large 06-05-2011 09:34-0400 BSA (Body Surface Area) 1.63 m2 Mirella Mccracken [facility] Internal Medicine Work Phone: 06-05-2011 09:34-0400 Height 149.86 cm Mirella Mccracken [facility] Internal Medicine Work Phone: 06-05-2011 09:34-0400 Pulse (Heart Rate) 76 /min Mirella Mccracken [facility] Internal Medicine Work Phone: Comment on above: Pattern: Regular 06-05-2011 09:34-0400 Respiratory Rate 20 /min Mirella Mccracken [facility] Internal Medicine Work Phone: Comment on above: Pattern: Unlabored 06-05-2011 09:34-0400 Weight 67.7 kg Mirella Mccracken [facility] Internal Medicine Work Phone: 05-08-2011 08:10-0400 BMI (Body Mass Index) 28.19 kg/m2 Mirella Mccracken [facility] Internal Medicine Work Phone: 05-08-2011 08:10-0400 Body Temperature 98.7 [degF] Mirella Mccracken [facility] Internal Medicine Work Phone: Comment on above: Method: Oral 05-08-2011 08:10-0400 Body weight 63.31 kg Mirella Mccracken [facility] Internal Medicine Work Phone: 05-08-2011 08:10-0400 BP Diastolic 78 mm[Hg] Mirella Mccracken [facility] Internal Medicine Work Phone: Comment on above: Patient Position: Sitting; Cuff Location : Left Arm; Cuff Size: Standard 05-08-2011 08:10-0400 BP Systolic 142 mm[Hg] Mirella Mccracken [facility] Internal Medicine Work Phone: Comment on above: Patient Position: Sitting; Cuff Location : Left Arm; Cuff Size: Standard 05-08-2011 08:10-0400 BSA (Body Surface Area) 1.58 m2 Mirella Mccracken [facility] Internal Medicine Work Phone: 05-08-2011 08:10-0400 Height 149.86 cm Mirella Mccrcaken [facility] Internal Medicine Work Phone: 05-08-2011 08:10-0400 Pulse (Heart Rate) 84 /min Mirella Mccracken [facility] Internal Medicine Work Phone: Comment on above: Pattern: Regular 05-08-2011 08:10-0400 Respiratory Rate 17 /min Mirella Mccracken [facility] Internal Medicine Work Phone: 05-08-2011 08:10-0400 Weight 63.31 kg Mirella Mccracken [facility] Internal Medicine Work Phone: 05-07-2011 08:42-0400 BMI (Body Mass Index) 28.19 kg/m2 Mirella Mccracken [facility] Internal Medicine Work Phone: 05-07-2011 08:42-0400 Body Temperature 98 [degF] Mirella Mccracken [facility] Internal Medicine Work Phone: Comment on above: Method: Oral 05-07-2011 08:42-0400 Body weight 63.31 kg Mirella Mccracken [facility] Internal Medicine Work Phone: 05-07-2011 08:42-0400 BP Diastolic 72 mm[Hg] Mirella Mccracken [facility] Internal Medicine Work Phone: Comment on above: Patient Position: Sitting; Cuff Location : Left Arm; Cuff Size: Standard 05-07-2011 08:42-0400 BP Systolic 132 mm[Hg] Mirella Mccracken [facility] Internal Medicine Work Phone: Comment on above: Patient Position: Sitting; Cuff Location : Left Arm; Cuff Size: Standard 05-07-2011 08:42-0400 BSA (Body Surface Area) 1.58 m2 Mirella Mccracken [facility] Internal Medicine Work Phone: 05-07-2011 08:42-0400 Height 149.86 cm Mirella Mccracken [facility] Internal Medicine Work Phone: 05-07-2011 08:42-0400 Pulse (Heart Rate) 82 /min Mirella Mccracken [facility] Internal Medicine Work Phone: Comment on above: Pattern: Regular 05-07-2011 08:42-0400 Respiratory Rate 18 /min Mirella Mccracken [facility] Internal Medicine Work Phone: Comment on above: Pattern: Unlabored 05-07-2011 08:42-0400 Weight 63.31 kg Mirella Mccracken [facility] Internal Medicine Work Phone: 05-06-2011 16:25-0400 BP Diastolic 82 mm[Hg] Mirella Mccracken [facility] Internal Medicine Work Phone: Comment on above: Patient Position: Supine; Cuff Location: Right Arm; Cuff Size: Standard 05-06-2011 16:25-0400 BP Systolic 146 mm[Hg] Mirella Mccracken [facility] Internal Medicine Work Phone: Comment on above: Patient Position: Supine; Cuff Location: Right Arm; Cuff Size: Standard 05-06-2011 16:25-0400 Pulse (Heart Rate) 76 /min Mirella Mccracken [facility] Internal Medicine Work Phone: Comment on above: Pattern: Regular 11-06-2010 12:10-0500 BMI (Body Mass Index) 28.19 kg/m2 Mirella Mccracken [facility] Internal Medicine Work Phone: 11-06-2010 12:10-0500 Body Temperature 97.3 [degF] Mirella Mccracken [facility] Internal Medicine Work Phone: Comment on above: Method: Oral 11-06-2010 12:10-0500 Body weight 63.31 kg Mirella Mccracken [facility] Internal Medicine Work Phone: 11-06-2010 12:10-0500 BP Diastolic 82 mm[Hg] Mirella Mccracken [facility] Internal Medicine Work Phone: Comment on above: Patient Position: Sitting; Cuff Location : Left Arm; Cuff Size: Standard 11-06-2010 12:10-0500 BP Systolic 144 mm[Hg] Mirella M[facility] Internal Medicine Work Phone: Comment on above: Patient Position: Sitting; Cuff Location : Left Arm; Cuff Size: Standard 11-06-2010 12:10-0500 BSA (Body Surface Area) 1.58 m2 Mirella Mccracken [facility] Internal Medicine Work Phone: 11-06-2010 12:10-0500 Height 149.86 cm [facility] Work [facility]: 11-06-2010 12:10-0500 Pulse (Heart Rate) 76 /min Mirella Mccracken [facility] Internal Medicine Work Phone: Comment on above: Pattern: Regular 11-06-2010 12:10-0500 Respiratory Rate 18 /min Mirella Mccracken [facility] Internal Medicine Work Phone: Comment on above: Pattern: Unlabored 11-06-2010 12:10-0500 Weight 63.31 kg Mirella Mccracken [facility] Internal Medicine Work Phone: 11-04-2010 09:00-0500 BMI (Body Mass Index) 28.19 kg/m2 Mirella Mccracken [facility] Internal Medicine Work Phone: 11-04-2010 09:00-0500 Body weight 63.31 kg Mirella Mccracken [facility] Internal Medicine Work Phone: 11-04-2010 09:00-0500 BP Diastolic 72 mm[Hg] Mirella Mccracken [facility] Internal Medicine Work Phone: Comment on above: Patient Position: Sitting; Cuff Location : Left Arm; Cuff Size: Standard 11-04-2010 09:00-0500 BP Systolic 122 mm[Hg] Mirella Mccracken [facility] Internal Medicine Work Phone: Comment on above: Patient Position: Sitting; Cuff Location : Left Arm; Cuff Size: Standard 11-04-2010 09:00-0500 BSA (Body Surface Area) 1.58 m2 Mirella Mccracken [facility] Internal Medicine Work Phone: 11-04-2010 09:00-0500 Height 149.86 cm [facility] Work [facility]: 11-04-2010 09:00-0500 Pulse (Heart Rate) 62 /min Mirella Mccracken [facility] Internal Medicine Work Phone: Comment on above: Pattern: Regular 11-04-2010 09:00-0500 Respiratory Rate 16 /min Mirella Mccracken [facility] Internal Medicine Work Phone: Comment on above: Pattern: Unlabored 11-04-2010 09:00-0500 Weight 63.31 kg Mirella Mccracken [facility] Internal Medicine Work Phone: 10-14-2010 09:31-0500 BMI (Body Mass Index) 28.19 kg/m2 Mirella Mccracken [facility] Internal Medicine Work Phone: 10-14-2010 09:31-0500 Body weight 63.31 kg Mirella Mccracken [facility] Internal Medicine Work Phone: 10-14-2010 09:31-0500 BP Diastolic 70 mm[Hg] Mirella Mccracken [facility] Internal Medicine Work Phone: Comment on above: Patient Position: Sitting; Cuff Location : Left Arm; Cuff Size: Large 10-14-2010 09:31-0500 BP Systolic 132 mm[Hg] Mirella Mccracken [facility] Internal Medicine Work Phone: Comment on above: Patient Position: Sitting; Cuff Location : Left Arm; Cuff Size: Large 10-14-2010 09:31-0500 BSA (Body Surface Area) 1.58 m2 Mirella Mccracken [facility] Internal Medicine Work Phone: 10-14-2010 09:31-0500 Height 149.86 cm Mirella Mccracken [facility] Internal Medicine Work Phone: 10-14-2010 09:31-0500 Pulse (Heart Rate) 72 /min Mirella Mccracken [facility] Internal Medicine Work Phone: Comment on above: Pattern: Regular 10-14-2010 09:31-0500 Respiratory Rate 20 /min Mirella Mccracken [facility] Internal Medicine Work Phone: Comment on above: Pattern: Unlabored 10-14-2010 09:31-0500 Weight 63.31 kg Mirella Mccracken [facility] Internal Medicine Work Phone: 07-17-2010 08:52-0400 BMI (Body Mass Index) 29.73 kg/m2 Mirella [facility] Internal Medicine Work Phone: 07-17-2010 08:52-0400 Body weight 66.76 kg Mirella Mccracken [facility] Internal Medicine Work Phone: 07-17-2010 08:52-0400 BP Diastolic 78 mm[Hg] Mirella Mccracken [facility] Internal Medicine Work Phone: Comment on above: Patient Position: Sitting; Cuff Location : Left Arm; Cuff Size: Large 07-17-2010 08:52-0400 BP Systolic 138 mm[Hg] Mirella Mccracken [facility] Internal Medicine Work Phone: Comment on above: Patient Position: Sitting; Cuff Location : Left Arm; Cuff Size: Large 07-17-2010 08:52-0400 BSA (Body Surface Area) 1.62 m2 Mirella Mccracken [facility] Internal Medicine Work Phone: 07-17-2010 08:52-0400 Height 149.86 cm Mirella Mccracken [facility] Internal Medicine Work Phone: 07-17-2010 08:52-0400 Pulse (Heart Rate) 60 /min Mirella Mccracken [facility] Internal Medicine Work Phone: Comment on above: Pattern: Regular 07-17-2010 08:52-0400 Respiratory Rate 20 /min Mirella Mccracken [facility] Internal Medicine Work Phone: Comment on above: Pattern: Unlabored 07-17-2010 08:52-0400 Weight 66.76 kg Mirella Mccracken [facility] Internal Medicine Work Phone: 06-17-2010 10:04-0400 BMI (Body Mass Index) 29.6 kg/m2 Mirella Solano [facility] Internal Medicine Work Phone: 06-17-2010 10:04-0400 Body weight 66.48 kg Mirella Mccracken [facility] Internal Medicine Work Phone: 06-17-2010 10:04-0400 BP Diastolic 70 mm[Hg] Mirella [facility] Work Phone: Comment on above: Patient Position: Sitting; Cuff Location : Left Arm; Cuff Size: Large 06-17-2010 10:04-0400 BP Systolic 122 mm[Hg] Mirella [facility] Work Phone: Comment on above: Patient Position: Sitting; Cuff Location : Left Arm; Cuff Size: Large 06-17-2010 10:04-0400 BSA (Body Surface Area) 1.62 m2 Mirella Mccracken [facility] Internal Medicine Work Phone: 06-17-2010 10:04-0400 Height 149.86 cm Mirella Mccracken [facility] Internal Medicine Work Phone: 06-17-2010 10:04-0400 Pulse (Heart Rate) 68 /min Mirella Mccracken [facility] Internal Medicine Work Phone: Comment on above: Pattern: Regular 06-17-2010 10:04-0400 Respiratory Rate 20 /min Mirella Mccracken [facility] Internal Medicine Work Phone: Comment on above: Pattern: Unlabored 06-17-2010 10:04-0400 Weight 66.48 kg Mirella Mccracken [facility] Internal Medicine Work Phone: 01-25-2010 13:25-0400 Body weight 66.91 kg Mirella Mccracken [facility] Internal Medicine Work Phone: 01-25-2010 13:25-0400 BP Diastolic 76 mm[Hg] Mirella Mccracken [facility] Internal Medicine Work Phone: Comment on above: Patient Position: Sitting; Cuff Location : Left Arm; Cuff Size: Standard 01-25-2010 13:25-0400 BP Systolic 132 mm[Hg] Mirella [facility] Work Phone: Comment on above: Patient Position: Sitting; Cuff Location : Left Arm; Cuff Size: Standard 01-25-2010 13:25-0400 Pulse (Heart Rate) 68 /min Mirella [facility] Work Phone: Comment on above: Pattern: Regular 01-25-2010 13:25-0400 Respiratory Rate 18 /min Mirella Mccracken [facility] Internal Medicine Work Phone: Comment on above: Pattern: Unlabored 01-25-2010 13:25-0400 Weight 66.91 kg Mirella Mccracken [facility] Internal Medicine Work Phone: 12-13-2009 11:12-0400 BMI (Body Mass Index) 29.32 kg/m2 Mirella Mccracken [facility] Internal Medicine Work Phone: 12-13-2009 11:12-0400 Body weight 65.86 kg Mirella Mccracken [facility] Internal Medicine Work Phone: 12-13-2009 11:12-0400 BP Diastolic 78 mm[Hg] Mirella Mccracken [facility] Internal Medicine Work Phone: Comment on above: Patient Position: Sitting; Cuff Location : Left Arm; Cuff Size: Large 12-13-2009 11:12-0400 BP Systolic 118 mm[Hg] Mirella Mccracken [facility] Internal Medicine Work Phone: Comment on above: Patient Position: Sitting; Cuff Location : Left Arm; Cuff Size: Large 12-13-2009 11:12-0400 BSA (Body Surface Area) 1.61 m2 Mirella Mccracken [facility] Internal Medicine Work Phone: 12-13-2009 11:12-0400 Height 149.86 cm Mirella Mccracken [facility] Internal Medicine Work Phone: 12-13-2009 11:12-0400 Pulse (Heart Rate) 64 /min Mirella Mccracken [facility] Internal Medicine Work Phone: Comment on above: Pattern: Regular 12-13-2009 11:12-0400 Respiratory Rate 20 /min Mirella Mccracken [facility] Internal Medicine Work Phone: Comment on above: Pattern: Unlabored 12-13-2009 11:12-0400 Weight 65.86 kg Mirella Mccracken [facility] Internal Medicine Work Phone: 10-03-2009 11:50-0500 BMI (Body Mass Index) 27.37 kg/m2 [facility] Internal Medicine Work Phone: 10-03-2009 11:50-0500 Body weight 61.46 kg Mirella Mccracken [facility] Internal Medicine Work Phone: 10-03-2009 11:50-0500 BP Diastolic 78 mm[Hg] Mirella Mccracken [facility] Internal Medicine Work Phone: Comment on above: Patient Position: Sitting; Cuff Location : Left Arm; Cuff Size: Large 10-03-2009 11:50-0500 BP Systolic 120 mm[Hg] Mirella Mccracken [facility] Internal Medicine Work Phone: Comment on above: Patient Position: Sitting; Cuff Location : Left Arm; Cuff Size: Large 10-03-2009 11:50-0500 BSA (Body Surface Area) 1.56 m2 Mirella Mccracken [facility] Internal Medicine Work Phone: 10-03-2009 11:50-0500 Height 149.86 cm Mirella Mccracken [facility] Internal Medicine Work Phone: 10-03-2009 11:50-0500 Pulse (Heart Rate) 64 /min Mirella Mccracken [facility] Internal Medicine Work Phone: Comment on above: Pattern: Regular 10-03-2009 11:50-0500 Respiratory Rate 20 /min Mirella Mccracken [facility] Internal Medicine Work Phone: Comment on above: Pattern: Unlabored 10-03-2009 11:50-0500 Weight 61.46 kg Mirella Mccracken [facility] Internal Medicine Work Phone: 01-17-2009 07:54-0400 BMI (Body Mass Index) 27.37 kg/m2 Mirella Solano [facility] Internal Medicine Work Phone: 01-17-2009 07:54-0400 Body weight 61.46 kg Mirella Mccracken [facility] Internal Medicine Work Phone: 01-17-2009 07:54-0400 BP Diastolic 60 mm[Hg] Mirella Mccracken [facility] Internal Medicine Work Phone: Comment on above: Patient Position: Sitting; Cuff Location : Left Arm; Cuff Size: Large 01-17-2009 07:54-0400 BP Systolic 112 mm[Hg] Mirella Mccracken [facility] Internal Medicine Work Phone: Comment on above: Patient Position: Sitting; Cuff Location : Left Arm; Cuff Size: Large 01-17-2009 07:54-0400 BSA (Body Surface Area) 1.56 m2 Mirella Mccracken [facility] Internal Medicine Work Phone: 01-17-2009 07:54-0400 Head Circumference 0 cm Mirella Mccracken [facility] Internal Medicine Work Phone: 01-17-2009 07:54-0400 Height 149.86 cm Mirella Mccracken [facility] Internal Medicine Work Phone: 01-17-2009 07:54-0400 Pulse (Heart Rate) 64 /min Mirella Mccracken [facility] Internal Medicine Work Phone: Comment on above: Pattern: Regular 01-17-2009 07:54-0400 Respiratory Rate 20 /min Mirella Mccracken [facility] Internal Medicine Work Phone: Comment on above: Pattern: Unlabored 01-17-2009 07:54-0400 Weight 61.46 kg Mirella Mccracken [facility] Internal Medicine Work Phone: 01-12-2009 07:52-0400 BMI (Body Mass Index) 27.37 kg/m2 Mirella Mccracken [facility] Internal Medicine Work Phone: 01-12-2009 07:52-0400 Body weight 61.46 kg Mirella Mccracken [facility] Internal Medicine Work Phone: 01-12-2009 07:52-0400 BP Diastolic 78 mm[Hg] Mirella Mccracken [facility] Internal Medicine Work Phone: Comment on above: Patient Position: Sitting; Cuff Location : Left Arm; Cuff Size: Large 01-12-2009 07:52-0400 BP Systolic 122 mm[Hg] Mirella Mccracken [facility] Internal Medicine Work Phone: Comment on above: Patient Position: Sitting; Cuff Location : Left Arm; Cuff Size: Large 01-12-2009 07:52-0400 BSA (Body Surface Area) 1.56 m2 Mirella Mccracken [facility] Internal Medicine Work Phone: 01-12-2009 07:52-0400 Head Circumference 0 cm Mirella Mccracken [facility] Internal Medicine Work Phone: 01-12-2009 07:52-0400 Height 149.86 cm Mirella Mccracken [facility] Internal Medicine Work Phone: 01-12-2009 07:52-0400 Pulse (Heart Rate) 72 /min Mirella Mccracken [facility] Internal Medicine Work Phone: Comment on above: Pattern: Regular 01-12-2009 07:52-0400 Respiratory Rate 18 /min Mirella Mccracken [facility] Internal Medicine Work Phone: Comment on above: Pattern: Unlabored 01-12-2009 07:52-0400 Weight 61.46 kg Mirella Mccracken [facility] Internal Medicine Work Phone: 01-02-2009 09:31-0400 BMI (Body Mass Index) 27.37 kg/m2 Mirella Mccracken [facility] Internal Medicine Work Phone: 01-02-2009 09:31-0400 Body weight 61.46 kg Mirella Mccracken [facility] Internal Medicine Work Phone: 01-02-2009 09:31-0400 BP Diastolic 78 mm[Hg] Mirella Mccracken [facility] Internal Medicine Work Phone: Comment on above: Patient Position: Sitting; Cuff Location : Left Arm; Cuff Size: Large 01-02-2009 09:31-0400 BP Systolic 138 mm[Hg] Mirella Mccracken [facility] Internal Medicine Work Phone: Comment on above: Patient Position: Sitting; Cuff Location : Left Arm; Cuff Size: Large 01-02-2009 09:31-0400 BSA (Body Surface Area) 1.56 m2 Mirella Mccracken [facility] Internal Medicine Work Phone: 01-02-2009 09:31-0400 Head Circumference 0 cm Mirella Mccracken [facility] Internal Medicine Work Phone: 01-02-2009 09:31-0400 Height 149.86 cm [facility] Work Phone: 01-02-2009 09:31-0400 Pulse (Heart Rate) 72 /min Mirella Mccracken [facility] Internal Medicine Work Phone: Comment on above: Pattern: Regular 01-02-2009 09:31-0400 Respiratory Rate 20 /min Mirella Mccracken [facility] Internal Medicine Work Phone: Comment on above: Pattern: Unlabored 01-02-2009 09:31-0400 Weight 61.46 kg Mirella Mccracken [facility] Internal Medicine Work Phone: 12-07-2008 09:40-0400 BMI (Body Mass Index) 27.28 kg/m2 Mirella Mccracken [facility] Internal Medicine Work Phone: Comment on above: vision with correction OD= 20/50 OS=20/5 0 OU=20/50 12-07-2008 09:40-0400 Body weight 61.26 kg Mirella Mccracken [facility] Internal Medicine Work Phone: Comment on above: vision with correction OD= 20/50 OS=20/5 0 OU=20/50 12-07-2008 09:40-0400 BP Diastolic 78 mm[Hg] [facility] Work [facility]: Comment on above: Patient Position: Sitting; Cuff Location : Left Arm; Cuff Size: Large vision with correcti on OD= 20/50 OS=20/50 OU=20/50 12-07-2008 09:40-0400 BP Systolic 122 mm[Hg] Mirella Mccracken [facility] Internal Medicine Work Phone: Comment on above: Patient Position: Sitting; Cuff Location : Left Arm; Cuff Size: Large vision with correcti on OD= 20/50 OS=20/50 OU=20/50 12-07-2008 09:40-0400 BSA (Body Surface Area) 1.56 m2 Mirella Mccracken [facility] Internal Medicine Work Phone: Comment on above: vision with correction OD= 20/50 OS=20/5 0 OU=20/50 12-07-2008 09:40-0400 Head Circumference 0 cm Mirella [facility] Internal Medicine Work Phone: Comment on above: vision with correction OD= 20/50 OS=20/5 0 OU=20/50 12-07-2008 09:40-0400 Height 149.86 cm [facility] Comment on above: vision with correction OD= 20/50 OS=20/5 0 OU=20/50 12-07-2008 09:40-0400 Pulse (Heart Rate) 72 /min [facility] Work [facility]: Comment on above: Pattern: Regular vision with correcti on OD= 20/50 OS=20/50 OU=20/50 12-07-2008 09:40-0400 Respiratory Rate 20 /min Mirella [facility] Internal Medicine Work Phone: Comment on above: Pattern: Unlabored vision with correcti on OD= 20/50 OS=20/50 OU=20/50 12-07-2008 09:40-0400 Weight 61.26 kg [facility] Work [facility]: Comment on above: vision with correction OD= 20/50 OS=20/5 0 OU=20/50 10-04-2008 09:20-0500 BMI (Body Mass Index) 26.31 kg/m2 Mirella Mccracken [facility] Internal Medicine Work Phone: 10-04-2008 09:20-0500 Body weight 59.08 kg [facility] Work [facility]: 10-04-2008 09:20-0500 BP Diastolic 76 mm[Hg] Mirella [facility] Internal Medicine Work Phone: Comment on above: Patient Position: Sitting; Cuff Location : Left Arm; Cuff Size: Large 10-04-2008 09:20-0500 BP Systolic 124 mm[Hg] Mirella [facility] Internal Medicine Work Phone: Comment on above: Patient Position: Sitting; Cuff Location : Left Arm; Cuff Size: Large 10-04-2008 09:20-0500 BSA (Body Surface Area) 1.54 m2 Mirella [facility] Internal Medicine Work Phone: 10-04-2008 09:20-0500 Head Circumference 0 cm Mirella Mccracken [facility] Internal Medicine Work Phone: 10-04-2008 09:20-0500 Height 149.86 cm Mirella Mccracken [facility] Internal Medicine Work Phone: 10-04-2008 09:20-0500 Pulse (Heart Rate) 72 /min Mirella Mccracken [facility] Internal Medicine Work Phone: Comment on above: Pattern: Regular 10-04-2008 09:20-0500 Respiratory Rate 20 /min Mirella Mccracken [facility] Internal Medicine Work Phone: Comment on above: Pattern: Unlabored 10-04-2008 09:20-0500 Weight 59.08 kg Mirella Mccracken [facility] Internal Medicine Work Phone: 09-21-2008 14:19-0500 BMI (Body Mass Index) 26.9 kg/m2 Mirella Mccracken [facility] Internal Medicine Work Phone: 09-21-2008 14:19-0500 Body weight 60.41 kg Mirella Mccracken [facility] Internal Medicine Work Phone: 09-21-2008 14:19-0500 BP Diastolic 80 mm[Hg] Mirella Mccracken [facility] Internal Medicine Work Phone: Comment on above: Patient Position: Sitting; Cuff Location : Left Arm; Cuff Size: Standard 09-21-2008 14:19-0500 BP Systolic 142 mm[Hg] Mirella Mccracken [facility] Internal Medicine Work Phone: Comment on above: Patient Position: Sitting; Cuff Location : Left Arm; Cuff Size: Standard 09-21-2008 14:19-0500 BSA (Body Surface Area) 1.55 m2 Mirella Mccracken [facility] Internal Medicine Work Phone: 09-21-2008 14:19-0500 Head Circumference 0 cm Mirella Mccracken [facility] Internal Medicine Work Phone: 09-21-2008 14:19-0500 Height 149.86 cm Mirella Mccracken [facility] Internal Medicine Work Phone: 09-21-2008 14:19-0500 Pulse (Heart Rate) 64 /min Mirella Mccracken [facility] Internal Medicine Work Phone: Comment on above: Pattern: Regular 09-21-2008 14:19-0500 Respiratory Rate 20 /min Mirella Mccracken [facility] Internal Medicine Work Phone: Comment on above: Pattern: Unlabored 09-21-2008 14:19-0500 Weight 60.41 kg Mirella Mccracken [facility] Internal Medicine Work Phone: 08-24-2008 13:56-0500 BMI (Body Mass Index) 26.9 kg/m2 Mirella Mccracken [facility] Internal Medicine Work Phone: 08-24-2008 13:56-0500 Body weight 60.41 kg Mirella Mccracken [facility] Internal Medicine Work Phone: 08-24-2008 13:56-0500 BP Diastolic 88 mm[Hg] Mirella Mccracken [facility] Internal Medicine Work Phone: Comment on above: Patient Position: Sitting; Cuff Location : Left Arm; Cuff Size: Standard 08-24-2008 13:56-0500 BP Systolic 142 mm[Hg] Mirella Mccracken [facility] Internal Medicine Work Phone: Comment on above: Patient Position: Sitting; Cuff Location : Left Arm; Cuff Size: Standard 08-24-2008 13:56-0500 BSA (Body Surface Area) 1.55 m2 Mirella Mccracken [facility] Internal Medicine Work Phone: 08-24-2008 13:56-0500 Head Circumference 0 cm Mirella Mccracken [facility] Internal Medicine Work Phone: 08-24-2008 13:56-0500 Height 149.86 cm Mirella Mccracken [facility] Internal Medicine Work Phone: 08-24-2008 13:56-0500 Pulse (Heart Rate) 80 /min Mirella Mccracken [facility] Internal Medicine Work Phone: Comment on above: Pattern: Regular 08-24-2008 13:56-0500 Respiratory Rate 20 /min Mirella Mccracken [facility] Internal Medicine Work Phone: Comment on above: Pattern: Unlabored 08-24-2008 13:56-0500 Weight 60.41 kg Mirella Mccracken [facility] Internal Medicine Work Phone: 06-28-2008 14:04-0400 BMI (Body Mass Index) 26.93 kg/m2 Mirella Mccracken [facility] Internal Medicine Work Phone: 06-28-2008 14:04-0400 Body weight 60.47 kg Mirella Mccracken [facility] Internal Medicine Work Phone: 06-28-2008 14:04-0400 BP Diastolic 78 mm[Hg] Mirella Mccracken [facility] Internal Medicine Work Phone: Comment on above: Patient Position: Sitting; Cuff Location : Left Arm; Cuff Size: Standard 06-28-2008 14:04-0400 BP Systolic 140 mm[Hg] Mirella Mccracken [facility] Internal Medicine Work Phone: Comment on above: Patient Position: Sitting; Cuff Location : Left Arm; Cuff Size: Standard 06-28-2008 14:04-0400 BSA (Body Surface Area) 1.55 m2 Mirella Mccracken [facility] Internal Medicine Work Phone: 06-28-2008 14:04-0400 Head Circumference 0 cm Mirella Mccracken [facility] Internal Medicine Work Phone: 06-28-2008 14:04-0400 Height 149.86 cm Mirella Mccracken [facility] Internal Medicine Work Phone: 06-28-2008 14:04-0400 Pulse (Heart Rate) 68 /min Mirella Mccracken [facility] Internal Medicine Work Phone: Comment on above: Pattern: Regular 06-28-2008 14:04-0400 Respiratory Rate 16 /min Mirella Mccracken [facility] Internal Medicine Work Phone: Comment on above: Pattern: Unlabored 06-28-2008 14:04-0400 Weight 60.47 kg Mirella Mccracken [facility] Internal Medicine Work Phone: Encounters Encounter Date Encounter Type Care Provider Facility Start: 06-03-2025 ambulatory Yesika VICENTE Fa cility:[facility] Start: 05-22-2025 ambulatory Jeddenae VICENTE Fa cility:[facility] Start: 05-16-2025 ambulatory Tadky VICENTE Fa cility:[facility] Start: 05-16-2025 Registered Referred Yesika Dolan Start: 04-20-2025 End: 04-20-[address] Yesika Faust MD Work Phone: [facility] [place][Note 2] Start: 04-20-2025 End: 04-20-2025 Patient encounter procedure Miguel YATES -[facility] Work Phone: Start: 04-14-2025 ambulatory Yesika VICENTE Fa cility:[facility] Start: 04-14-2025 Registered Referred Yesika Dolan Start: 03-20-2025 End: 03-20-[address] Yesika Faust MD Work Phone: [facility] [place][Note 2] Start: 03-20-2025 End: 03-20-2025 Patient encounter procedure Zeina Balbuena NP-C -[facility] Work Phone: Start: 03-14-2025 End: 03-14-[address] Yesika Faust MD -[facility] Work Phone: Start: 03-14-2025 End: 03-14-[address] Yesika Faust MD Work Phone: [place] [facility] [place] Start: 03-14-2025 Registered Referred Yesika Dolan Start: 03-06-2025 Registered Referred Yesika Dolan Start: 03-06-2025 End: 03-06-[address] Yesika Faust MD Work Phone: [facility] [place][Note 2] Start: 03-06-2025 End: 03-06-2025 Patient encounter procedure Zeina MEEK [facility] [place][Note 2] Work Phone: Start: 02-27-2025 ambulatory Yesika VICENET Fa cility:[facility] Start: 02-27-2025 Registered Referred Yesika Dolan Start: 02-23-2025 End: 02-23-[address] Yesika Faust MD Work Phone: [facility] [place][Note 2] Start: 02-23-2025 End: 02-23-2025 Patient encounter procedure Miguel Yariel YATES [facility] [place][Note 2] Work Phone: Start: 02-13-2025 ambulatory Yesika VICENTE Fa cility:[facility] Start: 02-13-2025 Registered Referred Yesika Dolan Start: 01-31-2025 End: 01-31-[address] Yesika Faust MD Work Phone: [facility] [place][Note 2] Start: 01-31-2025 End: 01-31-[address] Yesika Faust MD [facility] [place][Note 2] Work Phone: Start: 01-23-2025 ambulatory Yesika Franklin ty:[facility] Start: 01-23-2025 Registered Referred Zeina Dolan Start: 01-18-2025 End: 01-18-2025 Departed Referred Yesika Dolan Start: 01-18-2025 Registered Referred Yesika Dolan Start: 01-18-2025 End: 01-18-2025 ambulatory Yesika VICENTE Facility:[facility] Start: 01-14-2025 End: 01-14-[address] Yesika Faust MD Work Phone: [facility] Work Phone: Start: 01-14-2025 End: 01-14-2025 Departed Referred Yesika Dolan Start: 01-14-2025 End: 01-14-2025 ambulatory Yesika VICENTE Facility:[facility] Start: 01-12-2025 End: 01-12-[address] Yesika Faust MD Work Phone: [facility] Work Phone: Start: 01-12-2025 End: 01-12-2025 Departed Referred Yesika Dolan Start: 01-12-2025 Registered Referred Yesika Dolan Start: 01-12-2025 End: 01-12-2025 ambulatory Yesika VICENTE Facility:[facility] Start: 12-16-2024 End: 12-16-[address] Yesika Faust MD Work Phone: [facility] Work Phone: Start: 12-16-2024 End: 12-16-2024 Patient encounter procedure Zeina MEEK -[facility] Work Phone: Start: 12-14-2024 End: 12-14-[address] Yesika Faust MD Work Phone: [facility] Work Phone: Start: 12-14-2024 End: 12-14-2024 Departed Referred Yesika Dolan Start: 12-14-2024 Registered Referred Yesika Dolan Start: 12-14-2024 End: 12-14-2024 ambulatory Yesika VICENTE Facility:[facility] Start: 11-15-2024 End: 11-15-2024 ambulatory Yesika Faust Facility:[facility] Start: 11-15-2024 End: 11-15-[address] Yesika Faust MD -[facility] Work Phone: Start: 11-14-2024 End: 11-14-[address] Yesika Faust MD Work Phone: [facility] Work Phone: Start: 11-14-2024 End: 11-14-2024 Departed Referred Yesika Dolan Start: 11-14-2024 End: 11-14-2024 ambulatory Efewongbe Oleghe OLS Facility:[facility] Start: 10-27-2024 End: 10-27-2024 ambulatory Efewongbe Oleghe Facility:[facility] Start: 10-27-2024 End: 10-27-2024 Patient encounter procedure Miguel YATES -[facility] Work Phone: Start: 10-17-2024 ambulatory Efewongbe Scoutghe OLS Fa cility:[facility] Start: 10-17-2024 Registered Referred Yesika Dolan Start: 10-14-2024 ambulatory Efewongbe Oleghe OLS Fa cility:[facility] Start: 10-14-2024 Registered Referred Yesika Dolan Start: 09-20-2024 End: 09-20-2024 ambulatory Efewongbe Oleghe Facility:[facility] Start: 09-20-2024 End: 09-20-[address] Yesika Faust MD -[facility] Work Phone: Start: 09-16-2024 ambulatory Efewongbe Oleghe OLS Fa cility:[facility] Start: 09-16-2024 Registered Referred Yesika Dolan Start: 08-16-2024 End: 08-16-2024 Departed Referred Yesika Dolan Start: 08-16-2024 End: 08-16-2024 ambulatory Efewongbe Sammye OLS Facility:[facility] Start: 08-09-2024 End: 08-09-2024 ambulatory Efewongbe Oleghe Facility:[facility] Start: 08-04-2024 End: 08-04-2024 ambulatory Efewongbe Oleghe Facility:[facility] Start: 08-04-2024 End: 08-04-2024 ambulatory Efewongbe Oleghe OLS Facility:[facility] Start: 08-02-2024 End: 08-02-2024 ambulatory Efewongbe Oleghe OLS Facility:[facility] Start: 07-28-2024 End: 07-28-2024 ambulatory Zeina Balbuena NP Facility:[facility] Start: 07-04-2024 End: 07-04-2024 ambulatory Efewongbe Olekathiee Facility:[facility] Start: 06-27-2024 End: 06-27-2024 ambulatory Carmen Shaikh Facility:[facility] Start: 12-22-2023 End: 12-22-[address] Cl Tsang Work Phone: [facility] Work Phone: Start: 11-30-2023 End: 11-30-[address] Cl Tsang Work Phone: [facility] Work Phone: Start: 11-17-2023 End: 11-17-[address] Cl Tsang Work Phone: [facility] Work Phone: Start: 11-17-2023 End: 11-17-[address] Cl Tsang Work Phone: [facility] Start: 10-20-2023 End: 10-20-[address] Cl Tsang Work Phone: [facility] Work Phone: Start: 10-08-2023 End: 10-08-[address] Cl Tsang Work Phone: [facility] Work Phone: Start: 08-25-2023 End: 08-25-[address] Cl Tsang Work Phone: [facility] Work Phone: Start: 08-18-2023 End: 08-18-[address] Cl Tsang Work Phone: [facility] Work Phone: Start: 08-18-2023 End: 08-18-[address] Cl Tsang Work Phone: [facility] Start: 06-30-2023 End: 06-30-[address] Cl Tsang Work Phone: [facility] Work Phone: Start: 06-08-2023 End: 06-08-[address] Cl Tsang Work Phone: [facility] Work Phone: Start: 06-04-2023 End: 06-04-[address] Cl Tsang Work Phone: [facility] Work Phone: Start: 05-28-2023 End: 05-28-[address] Cl Tsang Work Phone: [facility] Work Phone: Start: 05-21-2023 End: 05-21-[address] Cl Tsang Work Phone: [facility] Work Phone: Start: 05-19-2023 End: 05-19-[address] Cl Tsang Work Phone: [facility] Start: 05-13-2023 End: 05-13-[address] Cl Tsang Work Phone: [facility] Work Phone: Start: 04-09-2023 End: 04-09-[address] Cl Tsang Work Phone: [facility] Work Phone: Start: 04-07-2023 End: 04-07-[address] Cl Tsang Work Phone: [facility] Work Phone: Start: 02-17-2023 End: 02-17-[address] Cl Tsang Work Phone: [facility] Work Phone: Start: 02-17-2023 End: 02-17-[address] Cl Tsang Work Phone: [facility] Work Phone: Start: 02-17-2023 End: 02-17-[address] Cl Tsang Work Phone: [facility] Start: 02-10-2023 End: 02-10-[address] Cl Tsang Work Phone: [facility] Work Phone: Start: 01-12-2023 End: 01-12-[address] Cl Tsang Work Phone: [facility] Work Phone: Start: 01-12-2023 End: 01-12-[address] Cl Tsang Work Phone: [facility] Start: 12-29-2022 End: 12-29-[address] Cl Tsang Work Phone: [facility] Start: 12-23-2022 End: 12-23-[address] Cl Tsang Work Phone: [facility] Start: 12-05-2022 End: 12-05-[address] Cl Tsang Work Phone: [facility] Start: 11-18-2022 End: 11-18-[address] Cl Tsang Work Phone: [facility] Work Phone: Start: 11-18-2022 End: 11-18-[address] Cl Tsang Work Phone: [facility] Start: 10-28-2022 End: 10-28-[address] Cl Tsang Work Phone: [facility] Start: 10-17-2022 End: 10-17-[address] Cl Tsang Work Phone: [facility] Start: 10-08-2022 End: 10-08-[address] Cl Tsang Work Phone: [facility] Start: 09-01-2022 End: 09-01-[address] Cl Tsang Work Phone: [facility] Start: 08-19-2022 End: 08-19-[address] Cl Tsang Work Phone: [facility] Work Phone: Start: 08-19-2022 End: 08-19-[address] Cl Tsang Work Phone: [facility] Start: 07-29-2022 End: 07-29-[address] Cl Tsang Work Phone: [facility] Start: 05-29-2022 End: 05-30-[address] Cl Tsang Work Phone: [facility] Start: 05-20-2022 End: 05-20-[address] Cl Tsang Work Phone: [facility] Work Phone: Start: 05-20-2022 End: 05-20-[address] Cl Tsang Work Phone: [facility] Start: 04-18-2022 End: 04-18-[address] Cl Tsang Work Phone: [facility] Start: 03-07-[address] Cl herrera Work Phone: [facility] Start: 01-13-2022 End: 01-13-[address] Cl Tsang Work Phone: [facility] Start: 11-14-2021 End: 11-14-2021 Patient encounter procedure TRUDY YATES Work Phone: [facility] Start: 11-12-2021 End: 11-12-2021 Departed Referred TRUDY YATES Work Phone: [facility] Start: 09-30-2021 End: 09-30-2021 Patient encounter procedure TRUDY YATES Work Phone: [facility] Start: 05-05-2019 Review Mirella Mccracken [facility] Start: 05-05-2019 End: 05-05-2019 Office outpatient visit 25 minutes Mirellaleatha Mccracken [facility] Start: 03-15-2019 Review Mirella Searson [facility] Start: 03-15-2019 End: 03-15-2019 Office outpatient visit 15 minutes Mirellaleatha Mccracken [facility] Start: 01-21-2018 End: 01-21-2018 Office outpatient visit 25 minutes Mirellazac Mccracken [facility] Start: 11-09-2017 End: 11-09-2017 Office outpatient visit 10 minutes Mirellazac Mccracken [facility] Start: 10-15-2017 End: 10-15-2017 Office outpatient visit 15 minutes Mirellaleatha Mccracken [facility] Start: 09-18-2017 End: 09-18-2017 Office outpatient visit 25 minutes Mirellazac Mccracken [facility] Start: 05-07-2017 End: 05-07-2017 Office [...] 07-02-2016 End: 07-02-2016 Phone Encounter Mirella Sunshine [facility] Start: 07-01-2016 End: 07-01-2016 Office outpatient visit 5 minutes Mirella Sunshine [facility] Start: 06-25-2016 End: 06-25-2016 Office outpatient visit 25 minutes Mirella Mccracken [facility] Start: 05-21-2016 End: 05-21-2016 Office outpatient visit 10 minutes Mirella Sunshine [facility] Start: 01-04-2016 End: 01-04-2016 Office outpatient visit 25 minutes Mirella Mccracken [facility] Start: 12-06-2015 End: 12-06-2015 Office outpatient visit 10 minutes Mirella Sunshine [facility] Start: 11-29-2015 End: 11-29-2015 Office outpatient visit 25 minutes Mirella Mccracken [facility] Start: 11-08-2015 End: [...] Start: 05-23-2015 End: 05-23-2015 Annotation/Addendum Mirella Sunshine [facility] Start: 05-23-2015 End: 05-23-2015 Office outpatient visit 5 minutes Mirella Mccracken [facility] Start: 05-16-2015 End: 05-16-2015 Office outpatient visit 5 minutes Mirella Mccracken [facility] Start: 05-09-2015 End: 05-09-2015 Office outpatient visit 5 minutes Mirella Mccracken [facility] Start: 04-26-2015 End: 04-26-2015 Phone Encounter Mirella Sunshine [facility] Start: 04-19-2015 End: 04-19-2015 Office [...] 09-11-2014 End: 09-11-2014 Phone Encounter Mirella Sunshine [facility] Start: 08-31-2014 End: 08-31-2014 Office [...] Office outpatient new 20 minutes Mirella Mccracken [facility] Start: 07-13-2014 End: 07-14-2014 Office outpatient visit 15 minutes Mirella Mccracken [facility] Start: 04-17-2014 End: 04-17-2014 Office outpatient visit 15 minutes Mirellaleatha Searson [facility] Start: 04-13-2014 End: 04-13-2014 Phone Encounter Mirellaleatha Searson [facility] al Medicine Start: 04-06-2014 End: 04-06-2014 Patient encounter procedure Mirellaleatha Searson [facility] Start: 04-06-2014 End: 04-06-2014 Patient encounter procedure Mirellaleatha Searson [facility] Start: 12-30-2013 End: 12-30-2013 Patient encounter procedure Mirella Mccracken [facility] Start: 12-22-2013 End: 12-22-2013 Patient encounter procedure Mirellaleatha Searson [facility] Start: 12-01-2013 End: 12-01-2013 Phone Encounter Mirellaleatha Searson [facility] Medicine Start: 12-01-2013 End: 12-01-2013 Patient encounter procedure Mirella Nicole [facility] Start: 09-23-2013 End: 09-23-2013 Patient encounter procedure Mirella Nicole [facility] Start: 09-13-2013 End: 09-13-2013 Phone Encounter Mirellaleatha Mccracken [facility] Start: 08-01-2013 End: 08-01-2013 Patient encounter procedure Mirella Nicole [facility] Start: 07-04-2013 End: 07-04-2013 Patient encounter procedure Mirella Nicole [facility] Start: 06-27-2013 End: 06-27-2013 Patient encounter procedure Mirella Mccracken [facility] Start: 06-20-2013 End: 06-20-2013 Patient encounter procedure Mirella Mccracken [facility] Start: 06-08-2013 End: 06-08-2013 Patient encounter procedure Mirella Nicole [facility] Start: 05-20-2013 End: 05-20-2013 Patient encounter procedure Mirella Nicole [facility] Start: 04-22-2013 End: 04-22-2013 Patient encounter procedure Mirella Nicole [facility] Start: 04-15-2013 End: 04-15-2013 Patient encounter procedure Mirella Nicole [facility] Start: 03-31-2013 End: 03-31-2013 Patient encounter procedure Mirella Mccracken [facility] Start: 02-28-2013 End: 02-28-2013 Patient encounter procedure Mirella Nicole [facility] Start: 11-15-2012 End: 11-15-2012 Patient encounter procedure Mirella Mccracken [facility] Start: 10-25-2012 End: 10-25-2012 Patient encounter procedure Mirella Mccracken [facility] Start: 10-21-2012 End: 10-21-2012 Patient encounter procedure Mirella Mccracken [facility] Start: 09-30-2012 End: 09-30-2012 Patient encounter procedure Mirella Mccracken [facility] Start: 09-30-2012 End: 09-30-2012 Phone Encounter Mirella Mccracken [facility] Medicine Start: 09-16-2012 End: 09-16-2012 Patient encounter procedure Mirellaleatha Mccracken [facility] Start: 05-27-2012 End: 05-28-2012 Nursing evaluation of patient and report Mirellaleatha Searson [facility] Internal [facility] Start: 03-11-2012 End: 03-11-2012 Patient encounter procedure Mirellaleatha Searson [facility] Start: 03-04-2012 End: 03-05-2012 Patient encounter procedure Mirellaleatha Mccracken [facility] Start: 02-25-2012 End: 02-25-2012 Patient encounter procedure Mirellaleatha Mccracken [facility] Start: 02-05-2012 End: 02-05-2012 Phone Encounter Mirellaleatha Mccracken [facility] Start: 02-04-2012 End: 02-04-2012 Phone Encounter Mirellaleatha Mccracken [facility] Start: 01-30-2012 End: 01-30-2012 Patient encounter procedure Mirella Nicole [facility] Start: 01-15-2012 End: 01-15-2012 Patient encounter procedure Mirellaleatha Searson [facility] Start: 12-31-2011 End: 12-31-2011 Patient encounter procedure Mirella Mccracken [facility] Start: 12-26-2011 End: 12-26-2011 Patient encounter procedure Mirellaleatha Mccracken [facility] Start: 12-24-2011 End: 12-24-2011 Patient encounter procedure Mirellaleatha Mccracken [facility] Start: 12-15-2011 End: 12-15-2011 Patient encounter procedure Mirellaleatha Searson [facility] Start: 11-26-2011 End: 11-26-2011 Patient encounter procedure Mirella Nicole [facility] Start: 11-12-2011 End: 11-12-2011 Patient encounter procedure Mirella Mccracken [facility] Start: 11-06-2011 End: 11-06-2011 Office outpatient visit 25 minutes Mirella Mccracken [facility] Start: 10-22-2011 End: 10-22-2011 Annotation/Addendum Mirella Sunshine [facility] Start: 10-21-2011 End: 10-21-2011 Office outpatient visit 25 minutes Mirella Mccracken [facility] Start: 06-05-2011 End: 06-05-2011 Patient encounter procedure Mirella Mccracken [facility] Start: 05-08-2011 End: 05-08-2011 Patient encounter procedure Mirella Mccracken [facility] Start: 05-07-2011 End: 05-07-2011 Office outpatient visit 15 minutes Mirella Mccracken [facility] Start: 05-06-2011 End: 05-06-2011 Office outpatient visit 15 minutes Mirella Mccracken [facility] Start: 11-06-2010 End: 11-06-2010 Office outpatient visit 15 minutes Mirella Mccracken [facility] Start: 11-04-2010 End: 11-04-2010 Office outpatient visit 15 minutes Mirella Mccracken [facility] Start: 10-14-2010 End: 10-14-2010 Patient encounter procedure Mirella Mccracken [facility] Start: 07-17-2010 End: 07-17-2010 Patient encounter procedure Mirella Mccracken [facility] Start: 06-17-2010 End: 06-17-2010 Patient encounter procedure Mirella Mccracken [facility] Start: 01-25-2010 End: 01-25-2010 Patient encounter procedure Mirella Mccracken [facility] Start: 12-13-2009 End: 12-13-2009 Patient encounter procedure Mirella Mccracken [facility] Start: 10-03-2009 End: 10-03-2009 Office outpatient visit 10 minutes Mirella Sunshine [facility] Start: 06-13-2009 End: 06-13-2009 Patient encounter procedure Mirella Sunshine [facility] Start: 01-17-2009 End: 01-17-2009 Office outpatient visit 15 minutes Mirella Mccracken [facility] Start: 01-12-2009 End: 01-12-2009 Office outpatient visit 25 minutes Mirella Mccracken [facility] Start: 01-02-2009 End: 01-02-2009 Patient encounter procedure Mirella Mccracken [facility] Start: 12-07-2008 End: 12-07-2008 Patient encounter procedure Mirella Mccracken [facility] Start: 10-04-2008 End: 10-04-2008 Patient encounter procedure Mirella Mccracken [facility] Start: 09-21-2008 End: 09-21-2008 Office outpatient visit 25 minutes Mirella Mccracken [facility] Start: 08-24-2008 End: 08-24-2008 Patient encounter procedure Mirella Mccracken [facility] Start: 06-28-2008 End: 06-28-2008 Patient encounter procedure Mirella Mccracken [facility] Start: 06-28-2008 End: 06-28-2008 Patient encounter procedure Mirella Mccracken [facility] Start: 06-26-2008 End: 06-26-2008 Historical Summary Mirella Mccracken [facility] Procedures Date Procedure Procedure Detail [...] 1 View (Portable) Comments: See Note; NOTES: [facility] Imaging Services [address] [place] [address] Chest 1 View (Portable) MR#: [id number] Acct: [id number] Name: AGUSTIN GARCIA Rep #: [id number] : 1940 F 79 From: Antoni Gaviria MD PCP: Mirella Mccracken DO Status: [facility] Study: Chest 1 View (Portable) Date of Exam: 05/27/19 Exam# [id number] Ordering Dr: Satish Gonzales MD STUDY: X-RAY [...] Satish Gonzales MD; Mirella Mccracken DO Supervisor Fishing: Signed Mirella Mccracken Start: 05-27-2019 End: 05-27-2019 Shoulder min 2 Views Comments: See Note; NOTES: [facility] Imaging Services [address] [place] [address] Shoulder min 2 Views MR#: [id number] Acct: [id number] Name: AGUSTIN GARCIA Rep #: [id number] : 1940 F 79 From: Antoni Gaviria MD PCP: Mirella Mccracken DO Status: [facility] Study: Shoulder min 2 Views Date of Exam: 05/27/19 Exam# [id number] Ordering Dr: Aury Hyde MD STUDY: X-RAY [...] Aury Hyde MD; Mirella Mccracken DO Supervisor Fishing: Signed Mirella Mccracken Start: 05-27-2019 End: 05-27-2019 Operative Report Comments: See Note; NOTES: [facility] Medical Records Department [address] [place] [address] Operative Report 05/27/19 1615 MR#: [id number] Acct: [id number] Name: AGUSTIN GARCIA Rep #: [id number] : 1940 79 From: Uriel Francois MD PCP: Mirella Mccracken DO Status: REG SDC Y Location: [place] [address] Report of Operation Date of Procedure: 05/27/19 [...] back to the operating room at the [facility] local she was placed in dorsolithotomy position went into the bladder with a 21 Pashto rigid cystourethroscope cannulated the left ureteral orifice [...] Admission: No VTE Mechan Device Prophylaxis: SCD's 05/27/19 1619 <Electronically signed by Uriel Francois MD> Date Uriel Francois MD CC: Uriel Francois MD; Mirella Mccracken DO Signed Mirella Mccracken Start: 05-27-2019 End: 05-27-2019 Discharge Instruction Comments: See Note; NOTES: [facility] Medical Records Department [address] [place] [address] Instructions for Home/Discharge Instructions 05/27/19 1614 MR#: [id number] Acct: [id number] Name: AGUSTIN GARCIA Rep #: [id number] : 1940 79 From: Uriel Francois MD PCP: Mirella Mccracken DO Status: REG [facility] Discharge Diet: Light diet - advance as [...] or 2 Views Comments: See Note; NOTES: [facility] Imaging Services [address] [place] [address] Pelvis 1 or 2 Views MR#: [id number] Acct: [id number] Name: AGUSTIN GARCIA Rep #: [id number] : 1940 F 79 From: Antoni Gaviria MD PCP: Mirella Mccracken DO Status: [facility] Study: Pelvis 1 or 2 Views Date of Exam: 05/27/19 Exam# [id number] Ordering Dr: Uriel Francois MD STUDY: X-RAY [...] Uriel Francois MD; Mirella Mccracken DO Supervisor Fishing: Signed Mirella Nicole Start: 05-05-2019 End: 05-05-2019 Abdomen/Pelvis WITH Contrast Comments: See Note; NOTES: [facility] Imaging Services [address] [place] [address] Abdomen/Pelvis WITH Contrast MR#: [id number] Acct: [id number] Name: AGUSTIN GARCIA Rep #: [id number] : 1940 F 79 From: Zoran Reinoso MD PCP: Mirella Mccracken DO Status: REG CLI Study: Abdomen/Pelvis WITH Contrast Date of Exam: 05/05/19 Exam# [id number] Ordering Dr: Mirella Mccracken DO STUDY: CT [...] support , CC: Mirella Mccracken DO Supervisor Fishing: Signed Mirella Mccracken Work Phone: Start: 03-18-2019 End: 03-18-2019 Pelvic (Non ) Comments: See Note; NOTES: [facility] Imaging Services [address] [place] [address] Pelvic (Non ) MR#: [id number] Acct: [id number] Name: AGUSTIN GARCIA Rep #: [id number] : 1940 F 78 From: Avi Fisher MD PCP: Mirella Mccracken DO Status: REG CLI Study: Pelvic (Non ) Date of Exam: 03/18/19 Exam# [id number] Ordering Dr: Mirella Mccracken DO STUDY: ULTRASOUND [...] support , CC: Mirella Mccracken DO Supervisor Fishing: Signed Mirella Mccracken Work Phone: Start: 03-15-2019 End: 03-15-2019 Venous Duplex Lower Extremity Comments: See Note; NOTES: [facility] Cardiovascular Services [address] [place] [address] Venous Duplex US, Unilateral 03/15/19 1340 MR#: [id number] Acct: [id number] Name: AGUSTIN GARCIA Rep #: [id number] : 1940 78 From: James Moctezuma MD [...] 03/15/19 1340 Date Transcribed: 03/15/19 142 Supervisor Fishing: Signed Mirella Mccracken Work Phone: Start: 11-17-2017 End: 11-17-2017 PT D/C Summary (1) Comments: See Note; NOTES: [facility] Physical Therapy [facility] [address] [place] [address]. [address] [place] [address] Fax REHABILITATION SERVICES DISCHARGE SUMMARY MR#: [id number] Acct: [id number] Name: AGUSTIN GARCIA Rep #: [id number] : 1940 77 From: Chester Christine DPT, OCS, CSCS Referring Dr.: Mirella Mccracken DO Status: [...] please feel free to call me at [phone]. Thank you for the referral of this patient. Sincerely, Chester Christine DPT, OC <Electronically signed by Chester Christine DPT, MAKEDA, CSCS> 11/17/17 0920 CC: Mirella Mccracken DO EBG Signed Mirella Mccracken Start: 11-13-2017 End: 11-13-2017 Inital Evaluation (1) - PT Comments: See Note; NOTES: [facility] Physical Therapy [facility] [address] [place] [address]. [address] [place] [address] Fax REHABILITATION SERVICES INITIAL EVALUATION MR#: [id number] Acct: [id number] Name: AGUSTIN GARCIA Rep #: [id number] : 1940 77 From: Chester Christine DPT, MAKEDA, CSCS Referring Dr.: Mirella Mccracken DO Status: REG RCR Insurance: MEDICARE PART A B [facility] Patient's Visit Information AGUSTINDc GARCIA is a 77 year old F [...] to be FAXED BACK to us at [phone] for Medicare purposes. Please let me know if there are questions or concerns regarding this plan of care. Physician Signature: _Date: <Electronically signed by Chester GILLILANDT, OCS, CSCS> 11/13/17 0645 CC: Mirella Mccracken DO EBG Signed For Medicare only, by signing this I certify the plan of care. Physicians Signature Date Mirella Mccracken Start: 10-15-2017 End: 10-15-2017 Femur Min 2 Views Comments: See Note; NOTES: [facility] Imaging Services [address] [place] [address] Femur Min 2 Views MR#: [id number] Acct: [id number] Name: AGUSTIN GARCIA Rep #: [id number] : 1940 F 77 From: Edward Jha MD PCP: Mirella Mccracken DO Status: REG CLI Study: Femur Min 2 Views Date of Exam: 10/15/17 Exam# [id number] Ordering Dr: Mirella Mccracken DO STUDY: X-RAY [...] Edward Jha MD at 15:48 EST Tel [phone], Service support , CC: Mirella Mccracken DO Supervisor Fishing: Signed Mirella Mccracken Work Phone: Start: 10-15-2017 End: 10-15-2017 Hip 2-3 Views with Pelvis Comments: See Note; NOTES: [facility] Imaging Services [address] [place] [address] Hip 2-3 Views with Pelvis MR#: [id number] Acct: [id number] Name: AGUSTIN GARCIA Rep #: [id number] : 1940 F 77 From: Edward Jha MD PCP: Mirella Mccracken DO Status: REG CLI Study: Hip 2-3 Views with Pelvis Date of Exam: 10/15/17 Exam# [id number] Ordering Dr: Mirella Mccracken DO STUDY: X-RAY [...] Edward Jha MD at 15:54 EST Tel [phone], Service support , STUDY: X-RAY - PELVIS [...] Edward Jha MD at 15:55 EST Tel [phone], Service support , CC: Mirella Mccracken DO Supervisor Fishing: Signed Mirella Mccracken Work Phone: Start: 06-05-2017 End: 06-05-2017 Follow Up Appt 6 months Jose Vargas MD Start: 06-05-2017 End: 06-05-2017 [facility] Jose Vargas MD Start: 03-26-2017 End: 03-26-2017 Ribs Uni Min 3V w/PA Chest Comments: See Note; NOTES: [facility] Imaging Services [address] [place] [address] Verdana 4d Ribs Uni Min 3V w/PA Chest MR#: [id number] Acct: [id number] Name: AGUSTIN GARCIA Rep #: [id number] : 1940 F 76 From: Tomas Pat MD PCP: Mirella Mccracken DO Status: REG CLI Study: Ribs Uni Min 3V w/PA Chest Date of Exam: 03/26/17 Exam# [id number] Ordering Dr: Kaley Burkett MD STUDY: X-RAY - UNILATERAL RIBS [...] 16:03 EDT , Service support , CC: Kaley Burkett MD; Mirella Mccracken DO Supervisor Fishing: Signed Kaley Burkett Work Phone: Start: 11-13-2016 End: 11-13-2016 Kidney and Bladder Comments: See Note; NOTES: [facility] Imaging Services [address] [place] [address] Radha 4d Kidney and Bladder MR#: [id number] Acct: [id number] Name: AGUSTIN GARCIA Rep #: [id number] : 1940 F 76 From: Mackenzie Ortega MD PCP: Mirella Mccracken DO Status: REG CLI Study: Kidney and Bladder Date of Exam: 11/13/16 Exam# [id number] Ordering Dr: Uriel Francois MD STUDY: RENAL [...] MD at 16:03 EST , Service support [phone], CC: Uriel Francois MD; Mirella Mccracken DO Supervisor Fishing: Signed Mirella Mccracken Start: 11-03-2016 End: 11-03-2016 Follow Up Appt 9 months Zaria Trevino PA-C Work Phone: Start: 11-03-2016 End: 11-03-2016 [facility] Zaria Trevino PA-C Work Phone: Start: 07-07-2016 End: 07-07-2016 Breast Limited Unilateral Comments: See Note; NOTES: [facility] Imaging Services [address] [place] [address] Verdana 4d Breast Limited Unilateral MR#: [id number] Acct: [id number] Name: RADHAAGUSTIN Rep #: [id number] : 1940 F 76 From: Edward Jha MD PCP: Mirella Mccracken DO Status: REG CLI Study: Breast Limited Unilateral Date of Exam: 07/07/16 Exam# [id number] Ordering Dr: Mirella Mccracken DO STUDY: ULTRASOUND [...] Edward Jha MD at 15:23 EDT Tel [phone], Service support [phone], CC: Mirella Mccracken DO Supervisor Fishing: Signed Mirella Mccracken Work Phone: Start: 07-07-2016 End: 07-07-2016 Unilat Rt Diag Digital AND CAD Comments: See Note; NOTES: [facility] Imaging Services [address] [place] [address] Verdana 4d Unilat Rt Diag Digital AND CAD MR#: [id number] Acct: [id number] Name: AGUSTIN GARCIA Rep #: [id number] : 1940 F 76 From: Edward Jha MD PCP: Mirella Mccracken DO Status: REG CLI Study: Unilat Rt Diag Digital AND CAD Date of Exam: 07/07/16 Exam# [id number] Ordering Dr: Mirella Mccracken DO MAMMOGRAPHY - [...] Edward Jha MD at 15:21 EDT Tel [phone], Service support [phone], CC: Mirella Mccracken DO Supervisor Fishing: Signed Mirella Mccracken Work Phone: Start: 05-21-2016 End: 05-22-2016 Foot min 3 Views Comments: See Note; NOTES: [facility] Imaging Services [address] [place] [address] Verkaley 4d Foot min 3 Views MR#: [id number] Acct: [id number] Name: AGUSTIN GARCIA Rep #: [id number] : 1940 F 76 From: Edward Jha MD PCP: Mirella Mccracken DO Status: REG CLI Study: Foot min 3 Views Date of Exam: 05/21/16 Exam# [id number] Ordering Dr: Mirella Mccracken DO STUDY: X-RAY [...] Edward Jha MD at 9:42 EDT Tel [phone], Service support [phone], CC: Mirella Mccracken DO Supervisor Fishing: Signed Mirella Mccracken Work Phone: Start: 05-07-2016 End: 05-07-2016 Follow Up Appt 6 months Jose Vargas MD Start: 05-07-2016 End: 05-07-2016 MMM Jose Vargas MD Start: 01-04-2016 End: 01-04-2016 Ecg routine ecg w/least 12 lds w/i&r [MEASUREMENTS ANALYSIS] Date of Test: 01/04/2016 10:09:41; Heart Rate: 59; MN Interval: 158; QRS: 88; QT Interval: 432; Corrected QT Interval (QTc): 431; P [place]: 32; QRS [place]: 10; T [place]: 47; Blood Pressure: 110/64 [ECG DIAGNOSTIC STATEMENTS] Date of Test: 01/04/2016 10:09:41; Summary: Sinus Bradycardia WITHIN NORMAL LIMITS Mirella Mccracken Work Phone: Comment on above: sinus elin no acute chg Start: 11-29-2015 End: 11-29-2015 Carotid Duplex Ultrasound Comments: See Note; NOTES: [facility] Cardiovascular Services [address] [place] [address] Carotid Duplex Ultrasound 11/20/15 1035 MR#: [id number] Acct: [id number] Name: AGUSTIN GARCIA Rep #: [id number] : 1940 75 From: Miko Cutler MD Attending Dr: Zaria Bustamante Status: REG CLI Ordering Dr: Zaria Bustamante PA Date: 11/20/15 Location: [facility] Sex: F C [...] the left vertebral artery. Procedure Carotid Duplex 97770. The exam was diagnostic. Exam performed in [...] 11/20/15 1035 Date Transcribed: 11/29/15 1556 Supervisor Fishing: Francisca Mccracken Start: 11-13-2015 End: 11-13-2015 Bilat Scrn Digital AND CAD Comments: See Note; NOTES: [facility] Imaging Services [address] [place] [address] Verdana 4d Bilat Scrn Digital AND CAD MR#: [id number] Acct: [id number] Name: AGUSTIN GARCIA Rep #: [id number] : 1940 F 75 From: Edward Jha MD PCP: Mirella Mccracken DO Status: REG CLI Study: Bilat Scrn Digital AND CAD Date of Exam: 11/13/15 Exam# [id number] Ordering Dr: Mirella Mccracken DO MAMMOGRAPHY - [...] delay biopsy of a clinically suspicious abnormality. [id number] Electronically Signed: Edward Jha MD at 14:46 EST Tel [phone], Service support [phone], CC: Mirella Mccracken DO Supervisor Fishing: Signed Mirella Mccracken Work Phone: Start: 11-05-2015 [...] Cervical without Contras Comments: See Note; NOTES: [facility] Imaging Services [address] [place], [place] [address] CAT Scan Report MR#: [id number] Acct: [id number] Name: RADHAAGUSTIN Rep #: [id number] : 1940 F 75 From: Otoniel Tam MD PCP: Mirella Mccracken DO Status: REG CLI Study: Spine Cervical without Contras Date of Exam: 06/07/15 Exam# [id number] Ordering Dr: Louis Tsang STUDY: CT CERVICAL [...] MD at 16:59 EDT , Service support [phone], CC: Mirella Mccracken DO; LOUIS TSANG Supervisor Fishing: Signed Mirella Mccracken Start: 05-22-2015 End: 05-23-2015 Spine Lumbar without Contrast Comments: See Note; NOTES: [facility] Imaging Services [address] [place] [address] CAT Scan Report MR#: [id number] Acct: [id number] Name: AGUSTIN GARCIA Rep #: [id number] : 1940 F 75 From: Ruddy Pozo MD PCP: Mirella Mccracken DO Status: REG CLI Study: Spine Lumbar without Contrast Date of Exam: 05/22/15 Exam# [id number] Ordering Dr: Louis Tsang STUDY: CT LUMBAR [...] at 10:05 EDT Tel , Service support [phone], CC: Mirella Mccracken DO; LOUIS TSANG Supervisor Fishing: Signed Mirella Nicole Start: 05-09-2015 End: 05-10-2015 Documentation of current medications Jose Vargas MD Start: 05-09-2015 End: 05-09-2015 Follow Up Appt 6 months Jose Vargas MD Start: 05-09-2015 End: 10-23-2016 Follow Up Appt Other Jose Vargas MD Start: 05-09-2015 End: 05-09-2015 MMM Jose Vargas MD Start: 04-26-2015 End: 04-26-2015 Brain/Head W/WO Contrast Comments: See Note; NOTES: [facility] Imaging Services [address] [place] [address] CAT Scan Report MR#: [id number] Acct: [id number] Name: RADHAAGUSTIN Rep #: [id number] : 1940 F 74 From: Edward Jha MD PCP: Mirella Mccracken DO Status: REG CLI Study: Brain/Head W/WO Contrast Date of Exam: 04/26/15 Exam# [id number] Ordering Dr: Mirella Mccracken DO STUDY: CT [...] Edward Jha MD at 12:51 EDT Tel [phone], Service support [phone], CC: Mirella Mccracken DO Supervisor Fishing: Signed Mirella Mccracken Work Phone: Start: 10-24-2014 End: 10-24-2014 Breast Complete Unilateral Comments: See Note; NOTES: [facility] Imaging Services [address] [place] [address] Ultrasound Report MR#: [id number] Acct: [id number] Name: AGUSTIN GARCIA Rep #: [id number] : 1940 F 74 From: Edward Jha MD PCP: Mirella Mccracken DO Status: REG CLI Study: Breast Complete Unilateral Date of Exam: 10/24/14 Exam# [id number] Ordering Dr: Mirella Mccracken DO STUDY: ULTRASOUND [...] Edward Jha MD at 11:15 EST Tel [phone], Service support [phone], CC: Mirella Mccracken DO Supervisor Fishing: Signed Mirella Mccracken Work Phone: Start: 10-24-2014 End: 10-25-2014 Dexa Bone Density Study (HP) Comments: See Note; NOTES: [facility] Imaging Services [address] [place] [address] Bone Density Report MR#: [id number] Acct: [id number] Name: AGUSTIN GARCIA Rep #: [id number] : 1940 F 74 From: Edward Jha MD PCP: Mirella Mccracken DO Status: [facility] Study: Dexa Bone Density Study (HP) Date of Exam: 10/24/14 Exam# [id number] Ordering Dr: Mirella Mccracken DO STUDY: DUAL [...] Edward Jha MD at 10:14 EST Tel [phone], Service support [phone], CC: Mirella Mccracken DO Supervisor Fishing: Signed Mirella Mccracken Work Phone: Start: 10-19-2014 End: 10-20-2014 Bilat Scrn Digital AND CAD Comments: See Note; NOTES: [facility] Imaging Services [address] [place] [address] Breast Imaging Report MR#: [id number] Acct: [id number] Name: AGUSTIN GARCIA Rep #: [id number] : 1940 F 74 From: Edward Jha MD PCP: Mirella Mccracken DO Status: REG CLI Study: Bilat Scrn Digital AND CAD Date of Exam: 10/19/14 Exam# [id number] Ordering Dr: Mirella Mccracken DO MAMMOGRAPHY - [...] Edward Jha MD at 13:38 EST Tel [phone], Service support [phone], CC: Mirella Mccracken DO Supervisor Fishing: Signed Mirella Mccracken Work Phone: Start: 10-10-2014 [...] Brain/Head W/WO Contrast Comments: See Note; NOTES: [facility] Imaging Services [address] [place] [address] CAT Scan Report MR#: [id number] Acct: [id number] Name: AGUSTIN GARCIA Rep #: [id number] : 1940 F 74 From: Audie Hugo MD PCP: Mirella Mccracken DO Status: REG CLI Study: Brain/Head W/WO Contrast Date of Exam: 09/08/14 Exam# [id number] Ordering Dr: Mirella Mccracken DO STUDY: CT [...] To Hugo MD at 8:17 EST Tel [phone], Service support [phone], CC: Mirella Mccracken DO Supervisor Fishing: Signed Mirella Mccracken Work Phone: Start: 07-27-2014 End: 07-27-2014 History and Physical Exam Comments: See Note; NOTES: [facility] Medical Records Department [address] [place] [address] History and Physical 07/27/14 0753 MR#: [id number] Acct: [id number] Name: RADHAAGUSTIN Rep #: [id number] : 1940 74 From: Nella Howard PCP: Mirella Mccracken DO Status: PRE [facility] Location: [facility] DATE OF SERVICE: 07/28/2014 PREOPERATIVE DIAGNOSIS: Painful [...] scheduled to undergo outpatient surgical intervention at [facility] on July 28, 2014. Pedal pulses are easily palpable bilaterally and consent was reviewed, signed and placed in chart. Nella Howard DPM T: NTS JOB: [id number] 07/27/14 1156 <Electronically signed by Nella Howard > Date: Time: Nella Howard CC: Mirella Mccracken DO; Nella Howard DPM Date Dictated: 07/27/14752 Date Transcribed: 07/27/14752 Supervisor Fishing: Signed ____ I have re-examined the patient. There are no clinical changes since date of exam. ____ See Progress Notes for Changes ____ Dictated on Admission Date: Time: Signature: Mirella Mccracken Start: 04-10-2014 End: 04-10-2014 Follow Up Appt 6 months Jose Vargas MD Start: 04-10-2014 End: 04-10-2014 Follow Up BP Check Jose Vargas MD Start: 04-10-2014 End: 04-10-2014 CAR Vargas MD Start: 12-22-2013 End: 12-22-2013 CTA Chest W/WO Contrast Comments: See Note; NOTES: [facility] Imaging Services [address] [place] [address] CAT Scan Report MR#: [id number] Acct: [id number] Name: AGUSTIN GARCIA Rep #: [id number] : 1940 F 73 From: Edward Jha MD PCP: Status: REG CLI Study: CTA Chest W/WO Contrast Date of Exam: 12/22/13 Exam# [id number] Ordering Dr: Mirella Mccracken DO STUDY: CTA [...] at 13:14 EDT Tel , Service support [phone], CC: Mirella Mccracken DO Supervisor Fishing: Signed Mirella Mccracken Work Phone: Start: 12-13-2013 [...] PA-C Work Phone: Start: 08-08-2013 End: 08-08-2013 M Zaria Trevino PA-C Work Phone: Start: 08-08-2013 End: 08-08-2013 PFClara Trevino PA-C Work Phone: Start: 06-20-2013 End: 06-22-2013 Brain/Head w/wo Contrast Comments: See Note; NOTES: [facility] Imaging Services [address] [place] [address] CAT Scan Report MR#: [id number] Acct: [id number] Name: AGUSTIN GARCIA Rep #: [id number] : 1940 F 73 From: Audie Hugo MD PCP: Status: REG CLI Study: Brain/Head w/wo Contrast Date of Exam: 06/20/13 Exam# [id number] Ordering Dr: Kaley Burkett MD STUDY: CT BRAIN WITH AND [...] June 20, 2013 at 3:17:31 PM EDT [phone] Electronically Signed BW/BW If you are the referring physician and would like to consult with the radiologist who provided this interpretation, please contact To Hugo M.D. at [phone]. If this radiologist is unavailable, you will be directed to another radiologist to assist. If you are a patient with a question regarding this report, please contact your referring physician directly. Professional Interpretation Provided By: [employer], Phone , These documents contain legally protected [...] return or destruction of these documents. CC: Kaley Burkett MD Supervisor Fishing: Signed Kaley Burkett Work Phone: Start: 05-04-2013 End: 07-07-2013 [...] 1950 Appendectomy Alyson Dixon Comment on above: 1949 [...] Alyson richter Comment on above: with surgery [id number] Kidney Problems Alyson richter Comment on above: with surgery [id number] Kidney Problems Alyson richter Comment on above: with surgery [id number] Ligation of fallopia n tube Alyson Dixon Comment on above: 1966 Ligation of fallopia n tube Alyson Dixon Comment on above: 1966 Ligation of fallopia n tube Alyson Dixon Comment on above: 1966 Operation on heart Alyson Boone moiserober 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 11/17/11 Operation on heart Alyson Paolo brittani 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 11/17/11 Operation on heart Alyson Boone moiserober Comment [...] metabolic panel calcium total Metabolic Panel, Basic (84439) [facility] Work Phone: Start: 01-21-2018 Provider Instructions for Treatment [facility] Work Phone: Start: 11-24-2017 End: 11-24-2017 Appointment Appointment [facility] Work Phone: Start: 11-09-2017 Provider [...] Phone: Start: 06-05-2017 End: 06-05-2017 MMM MMM [facility] Work Phone: Start: 05-07-2017 Provider Instructions for Treatment [facility] Work Phone: Start: 05-07-2017 Urnls dip stick/tablet reagent auto microscopy URINALYSIS, W/ MICRO (96212) [facility] Work Phone: Start: 05-07-2017 Urine albumin quantitative MICROALBUMIN: CREATININE RATIO (56543) AND (73474) [facility] Work Phone: Start: 12-25-2016 Procedure Education Eprescribed prescriptions (G8553) [facility] Work Phone: Start: 12-25-2016 Provider Instructions for Treatment [facility] Work Phone: Start: 11-03-2016 End: 11-03-2016 Follow Up Appt 9 months Follow Up Appt 9 months [facility] Work Phone: Start: 11-03-2016 End: 11-03-2016 PFM PFM [facility] Work Phone: Start: 09-25-2016 Procedure Education Eprescribed prescriptions (G8553) [facility] Work Phone: Start: 09-25-2016 Provider Instructions for Treatment [facility] Work Phone: Start: 07-02-2016 Lipid panel Lipid Panel (92483) [facility] Work Phone: Start: 06-25-2016 Provider Instructions for Treatment [facility] Work Phone: Start: 05-12-2016 End: 05-11-2015 *Hepatic Function Panel *Hepatic Function Panel [facility] Work Phone: Start: 05-12-2016 End: 05-11-2015 Lipid panel [AGGREGATE] *Lipid Profile CC PCP [facility] Work Phone: Start: 05-07-2016 End: 05-07-2016 Follow Up Appt 6 months Follow Up Appt 6 months [facility] Work Phone: Start: 05-07-2016 End: 05-07-2016 MMM MMM [facility] Work Phone: Start: 01-04-2016 Patient Education Instructions for the Patient Before and After Surgery *: instructions [facility] Work Phone: Start: 01-04-2016 Provider Instructions for Treatment [facility] Work Phone: Start: 11-29-2015 Provider Instructions for Treatment [facility] Work Phone: Start: 11-05-2015 End: 11-05-2015 Carotid duplex Carotid duplex [facility] Work Phone: Start: 11-05-2015 End: 11-05-2015 Follow Up Appt 6 months Follow Up Appt 6 months [facility] Work Phone: Start: 11-05-2015 End: 11-05-2015 Follow Up Appt Other Follow Up Appt Other [facility] Work Phone: Start: 11-05-2015 End: 11-05-2015 PFM PFM [facility] Work Phone: Start: 10-24-2015 Provider Instructions for Treatment [facility] Work Phone: Start: 10-24-2015 Blood occult fecal hgb deter ia qual feces 1-3 FECAL OCCULT- Tubes sent home (16158) [facility] Work Phone: Start: 07-26-2015 Patient Education Anxiety: emotional health [facility] Work Phone: Start: 07-26-2015 Provider Instructions for Treatment [facility] Work Phone: Start: 07-26-2015 25 hydroxy includes fractions if performed CALCIFIDIOL (49430) VIT D 25 [facility] Work Phone: Start: 07-26-2015 Urnls dip stick/tablet reagent auto microscopy URINALYSIS, W/ MICRO (14677) [facility] Work Phone: Start: 07-26-2015 Urine albumin quantitative MICROALBUMIN: CREATININE RATIO (80505) AND (25058) [facility] Work Phone: Start: 07-26-2015 Comprehensive metabolic panel METABOLIC PANEL, COMPREHENSIVE (92655) [facility] Work Phone: Start: 07-26-2015 Blood count complete auto&auto difrntl wbc CBC W/AUTO DIFF WBC (25908) [facility] Work Phone: Start: 07-26-2015 Thyrotropin Qn TSH (18432) [facility] Work Phone: Start: 07-26-2015 Lipid panel LIPID PANEL (97134) [facility] Work Phone: Start: 05-09-2015 End: 05-09-2015 Follow Up Appt 6 months Follow Up Appt 6 months [facility] Work Phone: Start: 05-09-2015 End: 10-23-2016 Follow Up Appt Other Follow Up Appt Other [facility] Work Phone: Start: 05-09-2015 End: 05-09-2015 MMM MMM [facility] Work Phone: Start: 04-26-2015 Culture bct isol&prsmptv id isolate ea urine URINE IBRAHIMA CULTURE-IDENTIFICATN (27407) [facility] Work Phone: Start: 04-19-2015 Procedure Education Eprescribed prescriptions (G8578) [facility] Work Phone: Start: 04-19-2015 Provider Instructions for Treatment [facility] Work Phone: Start: 04-19-2015 Cobalamin (Vitamin B12) mass conc VITAMIN B-12 (CYANOCOBALAMIN) (46191) [facility] Work Phone: Start: 04-19-2015 Urnls dip stick/tablet rgnt auto w/o microscopy URINALYSIS W/O MICRO (08143) [facility] Work Phone: Start: 04-19-2015 Thyrotropin Qn TSH (17681) [facility] Work Phone: Start: 04-19-2015 Urine albumin quantitative MICROALBUMIN: CREATININE RATIO (97717) AND (70021) [facility] Work Phone: Start: 04-19-2015 Comprehensive metabolic panel METABOLIC PANEL, COMPREHENSIVE (35481) [facility] Work Phone: Start: 04-19-2015 Blood count complete auto&auto difrntl wbc CBC W/AUTO DIFF WBC (48125) [facility] Work Phone: Start: 04-19-2015 Lipid panel LIPID PANEL (99427) [facility] Work Phone: Start: 04-19-2015 25 hydroxy includes fractions if performed CALCIFIDIOL (78643) VIT D 25 [facility] Work Phone: Start: 01-11-2015 Provider Instructions for Treatment [facility] Work Phone: Start: 01-11-2015 25 hydroxy includes fractions if performed Vitamin D Hydroxy (33343) [facility] Work Phone: Start: 01-11-2015 Lipid panel LIPID PANEL (92107) [facility] Work Phone: Start: 01-11-2015 Thyrotropin Qn TSH (49254) [facility] Work Phone: Start: 01-11-2015 Urnls dip stick/tablet reagent auto microscopy URINALYSIS, W/ MICRO (00150) [facility] Work Phone: Start: 01-11-2015 Urine albumin quantitative MICROALBUMIN: CREATININE RATIO (11098) AND (15172) [facility] Work Phone: Start: 01-11-2015 Comprehensive metabolic panel METABOLIC PANEL, COMPREHENSIVE (36436) [facility] Work Phone: Start: 01-11-2015 Blood count complete auto&auto difrntl wbc CBC W/AUTO DIFF WBC (98964) [facility] Work Phone: Start: 10-31-2014 Provider Instructions for Treatment *Calcium Education (KF) [facility] Work Phone: Start: 10-12-2014 Provider Instructions for Treatment [facility] Work Phone: Start: 10-10-2014 End: 10-10-2014 Electrocardiogram, complete EKG (In office) [facility] Work Phone: Start: 10-10-2014 End: [...] includes fractions if performed Vitamin D Hydroxy (08715) [facility] Work Phone: Start: 08-31-2014 [...] 6 months Follow Up Appt 6 months [facility] Work Phone: Start: 04-10-2014 End: 04-10-2014 Follow Up BP Check Follow Up BP Check [facility] Work Phone: Start: 04-10-2014 End: 04-10-2014 MMM MMM [facility] Work Phone: Start: 04-06-2014 Procedure Education Eprescribed prescriptions (G8553) [facility] Work Phone: Start: 04-06-2014 Provider Instructions for Treatment [facility] Work Phone: Start: 04-06-2014 Prothrombin time (PT) Coag time (PPP) PT (Prothrobim Time) (83612) [facility] Work Phone: Comment on above: inr Start: 12-30-2013 Provider Instructions for Treatment [facility] Work Phone: Start: 12-13-2013 End: 05-10-2015 *Hepatic Function Panel *Hepatic Function Panel [facility] Work Phone: Start: 12-13-2013 End: 05-10-2015 Lipid panel [AGGREGATE] *Lipid Profile CC PCP [facility] Work Phone: Start: 12-07-2013 End: 12-07-2013 Follow Up Appt Other Follow Up Appt Other [facility] Work Phone: Start: 12-07-2013 End: 12-07-2013 PFM PFM [facility] Work Phone: Start: 12-01-2013 Patient Education Water in diet, brief version [facility] Work Phone: Start: 12-01-2013 Provider Instructions for Treatment [facility] Work Phone: Start: 08-08-2013 End: 08-08-2013 Follow Up Appt 4 months Follow Up Appt 4 months [facility] Work Phone: Start: 08-08-2013 End: 08-08-2013 Follow Up Appt Other Follow Up Appt Other [facility] Work Phone: Start: 08-08-2013 [...] difrntl wbc CBC, PLATELETS & AUT DIFF (45855) [facility] Work Phone: Start: 06-20-2013 CRP mass conc C-Reactive Protein (95919) [facility] Work Phone: Start: 06-20-2013 Sedimentation rate rbc non-automated Sed Rate Erythrocyte (03656) [facility] Work Phone: Start: 06-20-2013 Creatinine mass conc CREATININE BLOOD (47005) [facility] Work Phone: Start: 06-08-2013 Patient Education Flu (Influenza) *: flu shot [facility] Work Phone: Start: 05-20-2013 Provider Instructions for Treatment Reviewed Diagnostic Tests [facility] Work Phone: Start: 05-04-2013 End: 07-07-2013 *BMP *BMP [facility] Work Phone: Start: 04-27-2013 End: 04-27-2013 Pulmonary Fuction Test - complete Pulmonary Fuction Test - complete [facility] Work Phone: Start: 04-22-2013 Provider Instructions for Treatment Reviewed Diagnostic Tests [facility] Work Phone: Start: 04-19-2013 End: 04-20-2013 *BMP *BMP [facility] Work Phone: Start: 04-19-2013 End: 04-20-2013 aPTT *PTT-Partial Thromboplastin Time [facility] Work Phone: Start: 04-19-2013 End: 04-20-2013 CBC W Auto Differential panel - Blood *CBC without Diff [facility] Work Phone: Start: 04-19-2013 End: 04-20-2013 Chest x-ray X-Ray, Chest, PA & Lateral [facility] Work Phone: Start: 04-19-2013 End: 04-20-2013 Coagulation factor induced.INR assay in platelet poor plasma *PT/INR [facility] Work Phone: Start: 04-19-2013 End: 04-19-2013 Electrocardiogram, complete EKG (In office) [facility] Work Phone: Start: 04-19-2013 End: 04-19-2013 Follow Up Appt Other Follow Up Appt Other [facility] Work Phone: Start: 04-18-2013 End: 04-18-2013 Left & Right Heart Cath W/Grafts Left & Right Heart Cath W/Grafts [facility] Work Phone: Start: 04-15-2013 Patient Education Water in diet, brief version [facility] Work Phone: Start: 04-15-2013 Provider Instructions for Treatment [facility] Work Phone: Start: 03-15-2013 End: 03-09-2013 Echocardiography Echocardiogram (complete) [facility] Work Phone: Start: 02-28-2013 Provider Instructions for Treatment [facility] Work Phone: Start: 02-10-2013 End: 02-10-2013 Arterial exam Arterial exam [facility] Work Phone: Start: 02-10-2013 End: 02-10-2013 Electrocardiogram, complete EKG (In office) [facility] Work Phone: Start: 02-10-2013 End: 02-10-2013 Flecainide [Mass/volume] in Serum or Plasma *FLEC Flecainide (Tambocor) 01826 [facility] Work Phone: Start: 02-10-2013 End: 02-10-2013 Follow Up Appt 6 months Follow Up Appt 6 months [facility] Work Phone: Start: 02-10-2013 End: 08-08-2013 Lipid panel [AGGREGATE] *Lipid Profile CC PCP [facility] Work Phone: Start: 02-10-2013 End: 02-10-2013 MMM MMM [facility] Work Phone: Start: 11-15-2012 Provider [...] urine URINE IBRAHIMA CULTURE (TY COL COUNT) (33465) [facility] Work Phone: Start: 09-16-2012 Provider Instructions for Treatment Follow up in 1 month [facility] Work Phone: Start: 07-08-2012 End: 04-18-2013 *Hepatic Function Panel *Hepatic Function Panel [facility] Work Phone: Start: 07-08-2012 End: 07-09-2012 Electrocardiogram, complete EKG (In office) [facility] Work Phone: Start: 07-08-2012 End: 07-09-2012 Follow Up Appt 6 months Follow Up Appt 6 months [facility] Work Phone: Start: 07-08-2012 End: 04-18-2013 Lipid panel [AGGREGATE] *Lipid Profile [facility] Work Phone: Start: 04-12-2012 End: 04-12-2012 Follow Up Appt 3 months Follow Up Appt 3 months [facility] Work Phone: Start: 03-05-2012 [...] monitor 24 hour holter monitor [facility] Work Phone: Start: 01-06-2012 End: 01-06-2012 Electrocardiogram, complete EKG (In office) [facility] Work Phone: Start: 01-06-2012 End: 01-06-2012 Follow Up Appt 3 months Follow Up Appt 3 months [facility] Work Phone: Start: 01-06-2012 End: 01-06-2012 Follow Up Appt Other Follow Up Appt Other [facility] Work Phone: Start: 01-06-2012 End: 04-18-2013 Lipid panel [AGGREGATE] *Lipid Profile [facility] Work Phone: Start: 12-31-2011 Provider Instructions for Treatment [facility] Work Phone: Start: 12-24-2011 Fibrin dgradj products d-dimer quantitative D-Dimer (22324) [facility] Work Phone: Start: 12-24-2011 Blood count complete automated CBC (AUTO) (93034) [facility] Work Phone: Start: 12-03-2011 Culture bacterial quanttative colony count urine URINE IBRAHIMA CULTURE-TY COL COUNT (10247) [facility] Work Phone: Start: 11-26-2011 Provider Instructions for Treatment [facility] Work Phone: Start: 11-06-2011 Provider Instructions for Treatment Reviewed Diagnostic Tests [facility] Work Phone: Start: 11-04-2011 Renal function panel Renal function Panel (87054) [facility] Work Phone: Start: 10-22-2011 CRP mass conc C-Reactive Protein (12537) [facility] Work Phone: Start: 10-21-2011 Renal function panel Renal function Panel (09196) [facility] Work Phone: Start: 10-21-2011 Provider Instructions for Treatment Follow up in 2 weeks [facility] Work Phone: Start: 10-21-2011 Fibrin dgradj products d-dimer quantitative D-Dimer (35875) [facility] Work Phone: Start: 10-21-2011 Troponin I.cardiac mass conc Troponin I (10932) [facility] Work Phone: Start: 10-21-2011 Creatine kinase mb fraction only CPK MB FRACTION (06276) [facility] Work Phone: Start: 10-21-2011 Creatine kinase total CREATINE KINASE TOTAL (39185) [facility] Work Phone: Start: 10-21-2011 CRP mass conc C-Reactive Protein (25379) [facility] Work Phone: Start: 06-17-2010 Provider Instructions for Treatment [facility] Work Phone: Start: 12-13-2009 Provider Instructions for Treatment [facility] Work Phone: Start: 01-17-2009 Provider Instructions for Treatment [facility] Work Phone: Start: 01-12-2009 Provider Instructions for Treatment *ERGOCALCIFEROL DOSAGE PER SHEWMON [facility] Work Phone: Start: 01-12-2009 Nuclear Ab IF titer (S) CORTES (ANTINUCLEAR ANTIBODY) (80992) [facility] Work Phone: Start: 01-12-2009 Rheumatoid factor quantitative RHEUMATOID FACTOR-QUANT (36231) [facility] Work Phone: Start: 01-12-2009 25 hydroxy includes fractions if performed Vitamin D Hydroxy (87888) [facility] Work Phone: Comment on above: do in 3-4 months Start: 01-02-2009 Provider Instructions for Treatment [facility] Work Phone: Start: 01-02-2009 25 hydroxy includes fractions if performed Vitamin D Hydroxy (28456) [facility] Work Phone: Start: 01-02-2009 1 25 dihydroxy includes fractions if performed VITAMIN D, 1, 25-DIHYDROXY (93444) [facility] Work Phone: Start: 01-02-2009 Thyrotropin Qn TSH (46689) [facility] Work Phone: Start: 01-02-2009 Protein electrophoretic fractj&quantj serum [facility] Work Phone: Start: 01-02-2009 Sedimentation rate rbc non-automated SED RATE ERYTHROCYTE (56960) [facility] Work Phone: Start: 01-02-2009 Phosphate mass conc PHOSPHORUS (28885) [facility] Work Phone: Start: 01-02-2009 Assay of parathormone PARATHORMONE (97749) [facility] Work Phone: Start: 01-02-2009 Hepatic function panel HEPATIC FUNCTION PANEL (31789) [facility] Work Phone: Start: 01-02-2009 Blood count complete automated CBC (AUTO) (08908) [facility] Work Phone: Start: 01-02-2009 Calcium mass conc CALCIUM SERUM (38224) [facility] Work Phone: Start: 01-02-2009 CRP mass conc C-REACTIVE PROTEIN (28648) [facility] Work Phone: Start: 01-02-2009 ALP enzyme act/vol ALKALINE PHOSPHATASE (71999) [facility] Work Phone: Start: 10-04-2008 Provider Instructions for Treatment [facility] Work Phone: Start: 10-04-2008 Lipid panel LIPID PANEL (07987) [facility] Work Phone: Start: 09-21-2008 [...] Immunizations Immunization Date Immunization Notes Care Provider [facility] 06-13-2009 influenza, seasonal, injectable Mirella Nicole [facility] Work Phone: Comment on above: Lot #[id number]-left deltoidgiven by:[facility] 06-28-2008 influenza, seasonal, injectable Mirella Nicole [facility] Work Phone: Comment on above: done km 0.5cc given im ;lt arm lot [id number] exp 02-20 Payers Date Payer Category Payer Self-pay [id number] 2024 Unknown [id number] 2024 Unknown [id number] 2016 Unknown [id number] 2004 Medicare [id number] Medicare MEDICARE PART A B [id number] Private Health Insurance [id number] Unknown Unknown [id number] 2.16.840.1.222398.3.579.2.462 Unknown [id number] 2.16.840.1.546509.3.579.2.462 Unknown [id number] 2.16.840.1.986394.3.579.2.462 Unknown [id number] 2.16.840.1.353380.3.579.2.462 Unknown [id number] 2.16.840.1.475325.3.579.2.462 Unknown [id number] 2.840.1.897174.3.579.2.462 Unknown [id number] 2.840.1.954289.3.579.2.462 Unknown [id number] 2.840.1.668399.3.579.2.462 Unknown [id number] 2.840.1.448134.3.579.2.462 Unknown [id number] 2.840.1.328477.3.579.2.462 Unknown [id number] 2.840.1.096950.3.579.2.462 Unknown [id number] 2.840.1.690134.3.579.2.462 Unknown [id number] 2.840.1.957677.3.579.2.462 Unknown [id number] 2.840.1.171912.3.579.2.462 Unknown [id number] 2.840.1.470346.3.579.2.462 Unknown [id number] 2.840.1.785866.3.579.2.462 Unknown [id number] 2.840.1.983314.3.579.2.462 Unknown [id number] 2.16.840.1.228408.3.579.2.462 Unknown [id number] 2.16.840.1.602424.3.579.2.462 Unknown [id number] 2.840.1.080979.3.579.2.462 Unknown [id number] 2.16.840.1.809408.3.579.2.462 Unknown [id number] 2.16.840.1.294450.3.579.2.462 Unknown [id number] 2.16.840.1.902676.3.579.2.462 Unknown [id number] 2.16.840.1.998588.3.579.2.462 Unknown [id number] 2.16.840.1.882297.3.579.2.462 Unknown [id number] 2.16.840.1.110470.3.579.2.462 Unknown [id number] 2.16.840.1.308245.3.579.2.462 Unknown [id number] 2.16.840.1.637041.3.579.2.462 Unknown [id number] 2.16.840.1.732816.3.579.2.462 Unknown [id number] 2.16.840.1.487362.3.579.2.462 Unknown [id number] 2.16.840.1.911547.3.579.2.462 Unknown [id number] 2.16.840.1.804017.3.579.2.462 Unknown [id number] 2.16.840.1.194452.3.579.2.462 Unknown [id number] 2.16.840.1.977848.3.579.2.462 Unknown [id number] 2.16.840.1.194920.3.579.2.462 Social History Date Type Detail Facility Caffeine Use Never smoker [facility] Work Phone: Comment on above: 2 per week 3-4 miles QD walking , heterosexua l, celibate Retired Tobacco use: Never smoker. [facility] Work Phone: Start: 09-30-2021 End: 07-09-2023 Tobacco smoking status NHIS Unknown if ever smoked [facility] Start: 06-12-2021 None [facility] Start: 06-12-2021 Homeless [facility] Start: 06-12-2021 Non-smoker [facility] Start: 1940 Sex Assigned At Female [facility] Start: 02-07-2024 End: 03-02-2025 Tobacco smoking status NHIS Never smoked tobacco (finding) [facility] Start: 12-14-2024 End: 01-04-2025 Sex Female (finding) [facility] Medical Equipment Procedure Code Equipment Code Equipment [...] Evaluation note No assessment information availa ble [facility] Work Phone: Evaluation note Note Date & Type Note Facility Evaluation note Diagnosis Onset Date Pes anserinus bursitis of left knee noneactive Osteoarthritis of left knee noneactive [facility] Work Phone: Evaluation note Note Date & Type Note Facility Evaluation note Diagnosis Onset Date Pes anserinus bursitis of left knee noneactive Osteoarthritis of left knee noneactive Pes anserinus bursitis of left knee noneactive Osteoarthritis of left knee noneactive [facility] Work Phone: Evaluation note Note Date & Type Note Facility Evaluation note Diagnosis Onset Date Osteoarthritis of left knee noneactive Osteoarthritis of left knee noneactive Osteoarthritis of left knee noneactive Osteoarthritis of left knee noneactive [facility] Work Phone: Reason for referral (narrative) Note Date & Type Note Facility Reason for referral (narrative) No reason for referral information available [facility] Work Phone: Family History No Family History [...] Type:Provider Instructions for Treatment How to access [employer] online Indication:Coronary artery disease Start:06-Apr-2014 Instruction Type:Patient [...] for Treatment How to access health informa [employer] online Indication:Coronary artery disease Start:06-Apr-2014 Instruction Type:Patient [...] Yes May 27, 2019 6:37pm Power of Lead Miner Yes May 6:37pm Advance Directive Response Recorded Date/ Time Advance Directives Yes May 2:39pm Living Will Yes June 04, 2022 2:39pm Power of Lead Miner Yes May 2:39pm Advance Directive Response Recorded Date/ Time Advance Directives Yes July 9:15am Living Will Yes August 01 9:15am Power of Lead Miner Yes August 01, 2022 9:15am Advance Directive Response Recorded Date/ Time Advance Directives Yes July 10:15am Living Will Yes August 01 10:15am Power of Lead Miner Yes August 01, 2022 10:15am Advance Directive Response Recorded Date/ Time Advance Directives Yes July 09, 2023 8:23am Living Will Yes July 09 8:23am Power of Lead Miner Yes July 09, 2023 8:23am Advance Directive Response Recorded Date/ Time Advance Directives Yes July 09, 2023 9:23am Living Will Yes July 09 9:23am Power of Lead Miner Yes July 09, 2023 9:23am Advance Directive [...] 2025 5:0 0am Chief Complaint Admit Date LONG-TERM LAB WORK January 12, 2025 5:00 [...] 2025 5:0 0am Chief Complaint Admit Date LONG-TERM LAB WORK January 12, 2025 5:00 [...] Admit Date LABWORK January 18, 2025 5:00am LONG-TERM LAB [...] section and content) DATE CREATED AUTHOR 10/03/2019 [facility] ([place]) DATE CREATED AUTHOR AUTHOR'S EVELYN ATLEO 06/07/2025 [facility] Goals (unrecognized section and content) Goals [...] Care Provider, Referrin g Provider Active Sabrina YATES, PA Attending Provider Active Team Status: Inactive [...] MD Primary Care Provider Active Zeina Balbuena NP, RING CUTTER LATHE OPERATOR-C Attending Provider Active Team Status: Inactive Member [...] Cl Tsang MD Primary Care Provider Active Miguel YATES, PA Attending Provider Active Team Status: Inactive Member Role Status Dates Dr. Cl Tsang MD Primary Care Provider Active Carmen Shaikh NP-C Attending Provider Active Team Status: Active Member [...] 16, 2024 End: December 16, 2024 Zeina Tickton RING CUTTER LATHE OPERATOR, RING CUTTER LATHE OPERATOR-C Attending Provider Active Start: December 16, 2024 [...] 2024 End: December 16, 2024 Zeina Balbuena RING CUTTER LATHE OPERATOR, RING CUTTER LATHE OPERATOR-C Attending Provider Active Start: December 16, 2024 [...] End: March 06, 2025 Zeina Balbuena NP RING CUTTER LATHE OPERATOR-C Attending Provider Active Start: March 06, 2025 [...] 2025 End: March 06, 2025 Zeina Balbuena RING CUTTER LATHE OPERATOR, RING CUTTER LATHE OPERATOR-C Attending Provider Active Start: March 06, 2025 End: March 06, 2025 Team Status: Inactive Member Role/Relationship Status Dates Dr. Yesika Faust MD Primary Care Provider Active Start: March 20, 2025 End: March 20, 2025 Zeina Balbuena RING CUTTER LATHE OPERATOR, RING CUTTER LATHE OPERATOR-C Attending Provider Active Start: March 20, 2025 [...] 2025 End: March 20, 2025 Zeina Balbuena RING CUTTER LATHE OPERATOR, RING CUTTER LATHE OPERATOR-C Attending Provider Active Start: March 20, 2025 [...] Status: Inactive Member Role/Relationship Status Dates Dr. eYsika Faust MD Primary Care Provider Active Start: [...] 2025 End: March 06, 2025 Zeina Balbuena RING CUTTER LATHE OPERATOR, RING CUTTER LATHE OPERATOR-C Attending Provider Active Start: March 06, 2025 [...] End: March 20, 2025 Zeina Balbuena NP, RING CUTTER LATHE OPERATOR-C Attending Provider Active Start: March 20, 2025 [...] BE BASED ON THE PRIMARY CLINICAL RECORDS. [facility] provides no warranty or guarantee of the accuracy or completeness of information in this document.
--- OUTSIDE RECORDS SUMMARY | 2025-06-19 07:21 | XMS RPT_ITS | CCD ---
Author Organization [facility] Inform ion Partnership [facility] Care Team Providers Care Homicide Squad Captain Name Role Phone Hung Davison Unavailable Unavailable NicoleMirella jiang Unavailable Armando Gutierrez Unavailable [facility] Unavailable Art Curry Unavailable Alba Sargent Unavailable Amita Antoine Unavailable [phone] Dick Morris Unavailable [facility] Unavailable Kya Valdivia Unavailable Joe Skinner Unavailable Alyson Dixon Unavailable Unavailable Unavailable Unavailable TRUDY Chambers Attending Provider Dr. Cl Tsang Primary Care Provider MD Cl Tsang Referring Provider Unavailable Dr. Thom Montiel Attending Provider TRUDY Chambers Referring Provider [phone] Esha SHOTGUN SHELL REPRINTING UNIT OPERATOR, SHOTGUN SHELL REPRINTING UNIT OPERATOR-C Zeina Attending Provider Dr. Cl Williamson Primary Care Provider Dr. Cl Tsang Primary Care Provider Esha SHOTGUN SHELL REPRINTING UNIT OPERATOR, SHOTGUN SHELL REPRINTING UNIT OPERATOR-C Zeina Attending Provider Dr. Cl Williamson Primary Care Provider Esha SHOTGUN SHELL REPRINTING UNIT OPERATOR, SHOTGUN SHELL REPRINTING UNIT OPERATOR-C Zeina Attending Provider Dr. Cl Williamson Referring Provider TRUDY Chambers Attending Provider [phone] Dr. Thom Montiel Attending Provider Dr. Cl Tsang Primary Care Provider Dr. Cl Tsang Referring Provider TRUDY Chambers Attending Provider [phone] Dr. Thom Montiel Attending Provider Esha SHOTGUN SHELL REPRINTING UNIT OPERATOR, SHOTGUN SHELL REPRINTING UNIT OPERATOR-C Zeina Attending Provider Dr. Tomas Humphrey Attending Provider [phone] Dr. Yesika Faust Attending Provider [phone] Dr. Cl Tsang Primary Care Provider Dr. Cl Tsang Referring Provider Dr. Thom Montiel Attending Provider [phone] Cl Tsang Primary Care Provider Esha SHOTGUN SHELL REPRINTING UNIT OPERATOR, SHOTGUN SHELL REPRINTING UNIT OPERATOR-Lio Pastrana Attending Provider Dr. Yesika Reed Attending Provider [phone] Dr. Cl Tsang Referring Provider TRUDY Chambers Attending Provider [phone] Dr. Cl Tsang Primary Care Provider Dr. Cl Tsang Referring Provider TRUDY Chambers Attending Provider [phone] Dr. Thom Montiel Attending Provider [phone] Esha SHOTGUN SHELL REPRINTING UNIT OPERATOR, SHOTGUN SHELL REPRINTING UNIT OPERATOR-C Zeina Attending Provider Dr. Yesika Reed Attending Provider [phone] Dr. Cl Tsang Primary Care Provider Dr. Yesika Faust Attending Provider [phone] TRUDY Parada Attending Provider [phone] Dr. Cl Tsang Primary Care Provider Dr. Yesika Faust Attending Provider [phone] Hawa SHOTGUN SHELL REPRINTING UNIT OPERATOR-C Carmen Attending Provider [phone] Christianne GE, [...] Dr. Napoles Attending Provider [phone] Esha SHOTGUN SHELL REPRINTING UNIT OPERATOR-CZeina Attending Provider [phone] Christianne GE, Dr. Napoles Primary Care Provider Yesika Faust MD Attending Provider Unavaila raffi Balbuena SHOTGUN SHELL REPRINTING UNIT OPERATOR-CZeina Attending Provider Christianne GE, Dr. Napoles Primary Care Provider Yesika Faust MD Attending Provider Unavailchristian Faust MD, Dr. Napoles Attending Provider [phone] Miguel Parada Attending Provider Christianne GE, Dr. Napoles Primary Care Provider Yesika Faust MD Attending Provider Unavaila raffi Balbuena SHOTGUN SHELL REPRINTING UNIT OPERATOR-CZeina Attending Provider Christianne GE, Dr. Napoles [...] Unavailable Oleghe, Efewongbe Primary Care Unavailable [place] SHOTGUN SHELL REPRINTING UNIT OPERATOR, Zeina Attending Unavailable Oleghe, Efewongbe Primary Care Unavailable Oleghe, Efewongbe Primary Care Unavailable [place] SHOTGUN SHELL REPRINTING UNIT OPERATOR, Zeina Attending Unavailable Oleghe OLS, Efewongbe Attending Unavailabl e Oleghe, Efewongbe Primary Care Unavailable Oleghe OLS, Efewongbe Attending Unavailabl e Oleghe, Efewongbe Primary Care Unavailable Oleghe, Efewongbe Primary Care Unavailable Oleghe, Efewongbe Attending Unavailable Oleghe OLS, Efewongbe Attending Unavailabl e Oleghe, Efewongbe Primary Care Unavailable Oleghe, Efewongbe Primary Care Unavailable Esha SHOTGUN SHELL REPRINTING UNIT OPERATOR, Zeina Attending Unavailable Oleghe, Efewongbe Primary Care Unavailable Esha SHOTGUN SHELL REPRINTING UNIT OPERATOR, Zeina Attending Unavailable Oleghe, Efewongbe Primary Care Unavailable Miguel Parada Attending Unavailable Oleghe, Efewongbe Primary Care Unavailable Oleghe, Efewongbe Attending Unavailable Oleghe, Efewongbe Primary Care Unavailable Miguel Parada Attending Unavailable Oleghe, Efewongbe Primary Care Unavailable Esha SHOTGUN SHELL REPRINTING UNIT OPERATOR, Zeina Attending Unavailable Carmen Shaikh Attending Unavailable Oleghe, Efewongbe Primary Care Unavailable Oleghe, Efewongbe Primary Care Unavailable Esha SHOTGUN SHELL REPRINTING UNIT OPERATOR, Zeina Attending Unavailable Oleghe, Efewongbe Attending Unavailable Oleghe, Efewongbe Primary Care Unavailable Oleghe OLS, Efewongbe Attending Unavailabl e Oleghe, Efewongbe Primary Care Unavailable Allergies Allergy Classification Reported Allergen(s) Allergy Type Date of Onset Reaction(s) Facility (2 sources) acetaminophen / HYDROcodone; Translations: [VICODIN] allergy to substance 05-08-20 11 [facility] Work Phone: (20 sources) HYDROcodone; Translations: [HYDROCODONE] allergy to substance 12-30-19 12 Other [facility] Work Phone: (1 source) Sulfonamides [...] 09-01-20 Other [facility] (18 sources) Sulfamethoxazole Drug Allergy 09-01-20 Other [facility] (1 source) Acetaminophen Drug Allergy 02-07-20 [facility] Repository (1 source) Sulfamethoxazole Drug Allergy 02-07-20 [facility] Rep[facility] Medications Current Medications Medication Drug Class(es) [...] TABS One tablet by mouth daily ASPIRIN [id number] Kaelyn Ellis RN Start: 11-12-2011 End: 11-12-2011 ASPIRIN LOW DOSE, 81MG (Oral Tablet Delayed Release) [address] qd for 0 days Quantity: 30 {Tablet_DR} Refills: 0 Ordered: 12-Nov-2011 Mirella Mccracken DO, DO, Kathleen Start : 12-Nov-2011 End : 12-Nov-2011 Discontinued End: 04-12-2012 take 1 tablet by mouth once daily ASPIRIN EC 81 MG TBEC One tablet by mouth daily ASPIRIN [id number] Jose Vargas MD cloNIDine hydrochloride 0.1 mg [...] hand docusate sodium 50 mg / sennosides, group home 8.6 mg oral tablet (11 sources) Start: [...] One tablet by mouth daily DULOXETINE HCL [id number] Jose Vargas MD Comment on above: substitute [...] Start: 04-09-2023 take 1 capsule by mo [facility] every six hours as needed for [...] 2021 1:00am September 30, 2024 5:08pm Vit C,M-Zq-Fkboy-Lutein-Zeax an (10 sources) Start: 05-13-2019 Vit C,E-Zn-Digital Media Sales Consultant ok-Ydsxcy-Vivlfl Active 1 EACH PO DAILY May 13, 2019 9:27am Start: 05-13-2019 End: 05-21-2023 Vit C,P-Yw-Asuyr-Lutein-Zeax an Discontinued 1 EACH PO DAILY May 13, 2019 12:00am May 21, 2023 10:07am Start: 05-13-2019 End: 05-21-2023 Vit C,K-Ca-Xdqyd-Lutein-Zeax an Discontinued 1 EACH PO DAILY May 12, 2019 11:00pm May 21, 2023 9:07am Start: 05-13-2019 Vit C,E-Zn-Digital Media Sales Consultant vu-Gmpqpa-Gzantl Active 1 EACH PO DAILY May 12, 2019 11:00pm Start: 05-13-2019 Vit C,E-Zn-Digital Media Sales Consultant so-Ivjgxc-Ndqzhe Active 1 EACH PO DAILY May 13, 2019 12:00am Completed/Discontinued Medications Medication Drug Class(es) Dates Sig (Normalized) Sig (Original) HYDROCODONE-ACETAM INOPHEN (2 sources) Opioid Agonist Start: 05-07-2016 take 1 tablet by mouth once daily at bedtime NORCO 5-325 MG TABS One tablet by mouth daily @ bedtime HYDROCODONE-ACETAMI NOPHEN [id number] Jose Vargas MD Start: 05-07-2016 End: 06-05-2017 take 1 tablet by mouth once daily at bedtime NORCO 5-325 MG TABS One tablet by mouth daily @ bedtime HYDROCODONE-ACETAMINOPHEN [id number] Jose Vargas MD acetaminophen 325 mg / [...] PERCOCET 5-325 MG TABS As needed OXYCODONE-ACETAMINOPHEN [id number] Kaelyn Ellis RN Start: 12-07-2013 PERCOCET 5-325 MG TABS As needed OXYCODONE-ACETAMINOPHEN [id number] Zaria Trevino PA-C Start: 12-07-2013 End: 11-05-2015 PERCOCET 5-325 MG TABS As ne eded OXYCODONE-ACETAMINOPHEN [id number] Zaria Trevino PA-C Start: 02-10-2013 PERCOCET 10-32 5 MG TABS As needed OXYCODONE-ACETAMINOPHEN [id number] Jose Vargas MD Comment on above: thirty [...] One tablet by mouth daily AMIODARONE HCL [id number] Jose Vargas MD Start: 11-25-2011 take 1 tablet by jeffry th twice daily AMIODARONE HCL 200 MG TABS One tablet by mouth twice daily AMIODARONE HCL [id number] Jose Vargas MD amoxicillin 500 mg oral [...] One tablet by mouth daily ATORVASTATIN CALCIUM [id number] Zaria Trevino PA-C Start: 11-25-2011 End: 04-06-2014 [...] tablet by mouth daily CALCIUM CARBONATE TABS [id number] Dick Morris DO calcium carbonate / vitamin D (2 sources) Start: 01-06-2012 take 1 tablet by mouth once daily CALCIUM + D 600-200 MG-UNIT TABS One tablet by mouth daily CALCIUM CARBONATE-VITAMIN D [id number] Jose Vargas MD Start: 01-06-2012 End: 04-12-2012 take 1 tablet by mouth once daily CALCIUM + D 600-200 MG-UNIT TABS One tablet by mouth daily CALCIUM CARBONATE-VITAMIN D [id number] Jose Vargas MD casanthranol 30 mg / [...] capsule by mouth every week VITAMIN D3, [id number] (Oral Capsule) 1 (one) Capsule Capsule q week for 0 days Quantity: 4 {Capsule} Refills: 3 Ordered: 29-Nov-2015 Alyson Dixon LPN Start : 13-Jul-2014 End : 29-Nov-2015 Inactive Start: 01-06-2012 End: 04-12-2012 take 1 tablet by mouth once daily VITAMIN D 2000 UNIT TABS One tablet by mouth daily CHOLECALCIFEROL [id number] Jose Vargas MD ciprofloxacin 500 mg oral [...] One tablet by mouth daily CRANBERRY CAPS [id number] Zaria Trevino PA-C CRANBERRY-VITAMIN C, 84-20MG (Oral [...] 0.05 % OINT apply twice daily DESONIDE [id number] Dick Morris DO desoximetasone 2.5 mg/ml topical cream (20 sources) Corticosteroid Start: 05-07-2011 End: 06-05-2011 TOPICORT, 0.25% (External Cream) 1 Cream bid for 0 days Quantity: 1 {Cream} Refills: 0 Ordered: 05-Jun-2011 Alyson Dixon LPN Start : 07-May-2011 End : 05-Jun-2011 Inactive TOPICORT 0.25 % CREA apply twice daily DESOXIMETASONE [id number] Dick Morris DO End: 04-12-2012 TOPICORT 0.25 % CREA apply t wice daily DESOXIMETASONE [id number] Jose Vargas MD diazePAM 2 mg oral [...] tablet by mouth twice daily DIPHENHYDRAMINE HCL [id number] Mary Nolen RN ergocalciferol 49118 unt oral capsule (20 sources) Provitamin D2 Compound Start: 01-12-2009 End: 04-13-2014 take 1 capsule by mouth every week ERGOCALCIFEROL, [id number] (Oral Capsule) 1 Capsule 2 x week for 0 days Quantity: 8 {Capsule} Refills: 3 Ordered: 13-Apr-2014 Alyson Dixon LPN Start : 12-Jan-2009 End : 13-Apr-2014 Inactive End: 01-06-2012 VITAMIN D (ERGOCALCIFEROL) 5 0000 UNIT CAPS one tablet twice a week ERGOCALCIFEROL [id number] Dick Morris DO estradiol 0.025 mg vaginal [...] tablet by mouth three times daily GABAPENTIN [id number] Jose Vargas MD Start: 02-10-2013 End: 11-05-2015 take 1 tablet by mouth twice daily GABAPENTIN 600 MG TABS One tablet by mouth twice daily GABAPENTIN [id number] Zaria Trevino PA-C Start: 01-06-2012 take 1 tablet by jeffry th three times daily NEURONTIN 100 MG CAPS One tablet by mouth three times daily GABAPENTIN [id number] Jose Vargas MD hydrOXYzine hydrochloride 50 mg [...] once daily ISOSORBIDE MONONITRATE ER 30 MG [id number] One tablet by mouth daily (Imdur) ISOSORBIDE MONONITRATE [id number] Zaria Trevino PA-C Start: 04-27-2013 take 1 tablet by jeffry th once daily IMDUR 60 MG [id number] One tablet by mouth daily ISOSORBIDE MONONITRATE [id number] Jose Vargas MD Start: 03-09-2013 take 1 tablet by jeffry th once daily IMDUR 30 MG [id number] One tablet by mouth daily ISOSORBIDE MONONITRATE [id number] Jose Vargas MD E-FCXAOMAWLPPM-O69-B6-B2 TAB S (2 sources) take 1 tablet by mouth once daily CEREFOLIN TABS One tablet by mouth daily M-[id number]-K75-[id number]-B2 TABS [id number] Dick Morris DO End: 12-22-2011 take 1 tablet by mouth once daily CEREFOLIN TABS One tablet by mouth daily Y-WLBTNLPXVVWY-D37-B6-B2 TABS [id number] Mary Nolen RN lisinopril 5 mg oral tablet (20 sources) Angiotensin Converting Enzyme Inhibitor Start: 04-24-2014 End: 06-27-2014 take 1 tablet by mouth once daily LISINOPRIL 2.5 MG TABS One tablet by mouth daily LISINOPRIL [id number] Kaelyn Ellis RN Start: 12-07-2013 End: 04-10-2014 take 1 tablet by mouth once daily LISINOPRIL 5 MG TABS One tablet by mouth daily LISINOPRIL [id number] Jose Vargas MD Start: 04-27-2013 End: 11-05-2015 [...] TABS One tablet by mouth daily LUTEIN [id number] Zaria Trevino PA-C End: 07-08-2012 take 1 tablet by mouth once daily LUTEIN CAPS One tablet by mouth daily LUTEIN CAPS [id number] Dick Morris DO melatonin 3 mg / [...] TABS One tablet by mouth daily MELOXICAM [id number] Zaria Trevino PA-C metaxalone 800 mg oral [...] tablet by mouth twice daily METOPROLOL TARTRATE [id number] Jose Vargas MD Start: 03-11-2012 End: 04-06-2014 [...] tablet by mouth twice daily METOPROLOL TARTRATE [id number] Jose Vargas MD Multivitamin preparation (18 sources) End: 11-29-2015 MULTIVITAMIN (Oral Liquid) for 0 days Refills: 0 Ordered: 29-Nov-2015 Alyson Dixon LPN End : 29-Nov-2015 Inactive nitroglycerin 0.4 mg sublingual tablet (20 sources) Nitrate Vasodilator Start: 01-06-2012 End: 04-10-2014 NITROSTAT 0.4 MG SUBL 1 tablet under tongue every 5 min up to 3 X NITROGLYCERIN [id number] Jose Vargas MD Start: 12-26-2011 End: 11-29-2015 [...] CPDR One capsule by mouth daily OMEPRAZOLE [id number] Lex Byrnes Alexander Start: 12-31-2011 End: 06-20-2013 PRILOSEC, 20MG (Oral Capsule Delayed Release) [address] qd for 0 days Quantity: 30 {Capsule_DR} Refills: 0 Ordered: 20-Jun-2013 FRANCI Castelan Start : 31-Dec-2011 End : 20-Jun-2013 Inactive End: 12-22-2011 take 1 tablet by mouth once daily PRILOSEC 10 MG CPDR One tablet by mouth daily OMEPRAZOLE [id number] Dick Morris DO pantoprazole 20 mg delayed release oral tablet (2 sources) Proton Pump Inhibitor End: 04-12-2012 take 1 tablet by mouth once daily PROTONIX 20 MG TBEC One tablet by mouth daily PANTOPRAZOLE SODIUM [id number] Jose Vargas MD pravastatin sodium 80 mg [...] Three tablets by mouth daily PREDNISONE TABS [id number] Mary Nolen RN take [address] [facility] once daily PREDNISONE TABS Three tablets by mouth daily PREDNISONE TABS [id number] Dick Morris DO rosuvastatin calcium 10 mg [...] One tablet by mouth daily ROSUVASTATIN CALCIUM [id number] Jose Vargas MD Comment on above: substitute generic Mail order. DOCUSATE SODIUM CAPS (2 sources) COLACE CAPS as n eeded DOCUSATE SODIUM CAPS [id number] Dick Morris DO End: 10-10-2014 COLACE CAPS as needed 10/10 DOCUSATE SODIUM CAPS [id number] Zaria Trevino PA-C 28 actuat teriparatide 0.02 [...] mouth once daily DETROL LA 4 MG [id number] One tablet by mouth daily TOLTERODINE TARTRATE [id number] Mary Nolen RN take 1 tablet by jeffry th once daily DETROL LA 4 MG [id number]-[id number] One tablet by mouth daily TOLTERODINE TARTRATE [id number] Dick Morris DO traMADol hydrochloride 50 mg [...] mouth three times daily TRAMADOL HCL TABS [id number] Dick Morris DO End: 12-22-2011 take 1 tablet by mouth three times daily ULTRAM TABS One tablet by mouth three times daily TRAMADOL HCL TABS [id number] Mary Nolen RN Comment on above: [age]-- [...] : 01-Dec-2013 End : 06-Apr-2014 Inactive Vit C,Y-Pu-Gnymr-Lutein-Ze axan 1 EACH capsule (11 sources) Start: 019 End: 023 take 1 capsule by mouth once daily Vit C,Q-Hc-Lyopa-Lutein-Z eaxan 1 EACH capsule Discontinued 1 NMA PO DAILY May 13, 2019 12:00am May 21, 2023 10:07am CHOLECALCIFEROL (4 sources) Start: 016 End: 016 take 1 tablet by mouth once daily VITAMIN D 1000 UNIT TABS One tablet by mouth daily CHOLECALCIFEROL [id number] Zaria Trevino PA-C Start: 11-02-2015 take 1 tablet by jeffry once daily VITAMIN D 1000 UNIT TABS One tablet by mouth daily CHOLECALCIFEROL [id number] Mary Nolen RN Start: 02-10-2013 End: 10-10-2014 take 1 tablet by mouth once daily VITAMIN D 1000 UNIT TABS One tablet by mouth daily CHOLECALCIFEROL [id number] Zaria Trevino PA-C Start: 02-10-2013 take 1 tablet by once daily VITAMIN D 1000 UNIT TABS One tablet by mouth daily CHOLECALCIFEROL [id number] Jose Vargas MD Problems Active Problems Problem [...] disease (20 sources) Atherosclerotic heart disease of [place] coronary artery without angina pectoris; Translations: [Coronary [...] current use of drug therapy; Translations: [Other senior care (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 therapy] 11-23-2017 Episodic Other bone [...] (current) use of other medications; Translations: [Other senior care (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 therapy] Onset: 07-08-2013 Resolved: 05-11-2015 [...] p laced her on asa-- cardio at [place]- he said no more plavix ever- rec [...] p laced her on asa-- cardio at [place]- he said no more plavix ever- rec [...] 10*3/uL 0.83-4.51 [facility] Absolute neutrophil countOrd ered By: Yesika Faust on 05-16-2025 Neutrophils (Bld) [#/Vol] 9.3 10*3/uL High 2.0-7.7 [facility] Anion gap in Serum or Plasma Ordered By: Yesika Faust on 05-16-2025 Anion gap [Moles/Vol] 12 mmol/L 5-15 [facility] Automated lymphocyte count a s percentage of total leukocytesOrdered By: Yesika Faust on 05-16-2025 Lymphocytes/100 WBC Auto (Unsp spec) 11.7 % Low 19-41 [facility] BUN/creatinine ratioOrdered By: [facility] Faust on 05-16-2025 Urea nitrogen/Creatinine [Mass ratio] 24.6 mg/mg High 10-20 [facility] Basophil percentageOrdered B y: Yesika Faust on 05-16-2025 Basophils/100 WBC (Bld) 0.5 % 0-1 [facility] Carbon dioxide, total [Moles /volume] in Central venous bloodOrdered By: Yesika Faust on 05-16-2025 CO2 [Moles/Vol] 20.3 mmol/L Low 21.0-32.0 [facility] Chloride assayOrdered By: Tad Faust on 05-16-2025 Chloride [Moles/Vol] 103 mmol/L 98-108 [facility] Eosinophil percentageOrdered By: ky Faust on 05-16-2025 Eosinophils/100 WBC (Bld) 0.6 % 0-5 [facility] Erythrocyte distribution wid th ratioOrdered By: Yesika Faust on 05-16-2025 Erythrocyte distribution width (RBC) [Ratio] 13.1 % 11.6-14.6 [facility] Erythrocyte distribution wid th standard deviationOrdered By: ky Faust on 05-16-2025 Erythrocyte distribution width (RBC) [Ratio] 46.6 fl High 35.1-43.9 [facility] Glomerular filtration rate ( GFR) estimation/1.73 sq m using serum, plasma, or whole bOrdered By: Yesika Faust on 05-16-2025 GFR/1.73 sq M.predicted among non-blacks MDRD (S/P/Bld) [Vol rate/Area] 86 mL/min/{1.73_m2} >60 [facility] Comment on above: mL/min/1.73m2 CKD-EP I Creatinine Equation (2020) Hematocrit Auto (Bld) [Volum e fraction]Ordered By: Yesika Faust on 05-16-2025 Hematocrit (Bld) [Volume fraction] 41.8 % 37-47 [facility] Hemoglobin measurementOrdere d By: Yesika Faust on 05-16-2025 Hemoglobin (Bld) [Mass/Vol] 13.5 g/dL 12.0-15.0 [facility] Immature granulocytes/100 WB C Auto (Bld)Ordered By: Yesika Faust on 05-16-2025 Immature granulocytes/100 WBC (Bld) 0.500 % 0.0-0.9 [facility] Comment on above: IG% - Immature Granu locytes (promyelocytes, myelocytes and metamyelocytes) > 1% indicates that a LEFT SHIFT is Present. MCV (mean corpuscular volume ) determinationOrdered By: Yesika Faust on 05-16-2025 MCV (RBC) [Entitic vol] 98.4 fL 81-99 [facility] Mean corpuscular hemoglobin (MCH) determinationOrdered By: enriquetagoodyearmacarena Faust on 05-16-2025 MCH (RBC) [Entitic mass] 31.8 pg 27.0-32.0 [facility] Mean corpuscular hemoglobin concentration (MCHC) determinationOrdered By: Yesika Faust on 05-16-2025 MCHC (RBC) [Mass/Vol] 32.3 g/dL 32-36 [facility] Mean platelet volume determi nationOrdered By: Yesika Faust on 05-16-2025 Platelet mean volume (Bld) [Entitic vol] 11.1 fL 6.2-12.0 [facility] Monocyte percentageOrdered B y: Yesika Faust on 05-16-2025 Monocytes/100 WBC (Bld) 8.3 % 0-10 [facility] Neutrophil percentageOrdered By: Yesika Faust on 05-16-2025 Neutrophils/100 WBC (Bld) 78.4 % High 47-70 [facility] Nucleated red blood cell per centageOrdered By: Yesika Faust on 05-16-2025 Nucleated RBC/100 WBC (Bld) [Ratio] 0 % 0-5 [facility] Platelet countOrdered By: Tad Faust on 05-16-2025 Platelets (Bld) [#/Vol] 218 10*3/uL 150-450 [facility] Potassium measurement (mass/ volume)Ordered By: Yesika Faust on 05-16-2025 Potassium (Unsp spec) [Mass/Vol] 5.2 mmol/L High 3.3-5.1 [facility] Comment on above: Hemolysis present, R esults could be affected. RBC Auto (Bld) [#/Vol]Ordere d By: Yesika Faust on 05-16-2025 RBC (Bld) [#/Vol] 4.25 10*6/uL 4.2-5.4 [facility] Serum creatinine measurement (mass/volume)Ordered By: Yesika Faust on 05-16-2025 Creatinine [Mass/Vol] 0.64 mg/dL Low 0.70-1.20 [facility] Serum glucose measurement (m ass/volume)Ordered By: Yesika Faust on 05-16-2025 Glucose [Mass/Vol] 86 mg/dL 70-99 [facility] Serum or plasma calcium madi urement (mass/volume)Ordered By: Yesika Faust on 05-16-2025 Calcium [Mass/Vol] 9.4 mg/dL 7.6-11.0 [facility] Serum or plasma urea nitroge n measurement (mass/volume)Ordered By: Yesika Faust on 05-16-2025 Urea nitrogen [Mass/Vol] 16 mg/dL 4-19 [facility] Sodium levelOrdered By: Jed Faust on 05-16-2025 Sodium [Moles/Vol] 135 mmol/L 133-145 [facility] White blood cell (WBC) count Ordered By: Yesika Faust on 05-16-2025 WBC (Bld) [#/Vol] 11.8 10*3/uL High 4.4-11.0 [facility] Absolute lymphocyte countOrd ered By: Yesika Faust on 04-14-2025 Lymphocytes Auto (Unsp spec) [#/Vol] 1.92 10*3/uL 0.83-4.51 [facility] Absolute neutrophil countOrd ered By: Yesika Faust on 04-14-2025 Neutrophils (Bld) [#/Vol] 5.3 10*3/uL 2.0-7.7 [facility] Anion gap in Serum or Plasma Ordered By: Yesika Faust on 04-14-2025 Anion gap [Moles/Vol] 11 mmol/L 5-15 [facility] Automated lymphocyte count a s percentage of total leukocytesOrdered By: Yesika Faust on 04-14-2025 Lymphocytes/100 WBC Auto (Unsp spec) 23.1 % 19-41 [facility] BUN/creatinine ratioOrdered By: Yesika Faust on 04-14-2025 Urea nitrogen/Creatinine [Mass ratio] 34.0 mg/mg High 10-20 [facility] Basophil percentageOrdered B y: Yesika Faust on 04-14-2025 Basophils/100 WBC (Bld) 0.6 % 0-1 [facility] Bilirubin directOrdered By: Yesika Faust on 04-14-2025 Bilirubin.direct [Mass/Vol] 0.09 mg/dL 0.00-0.30 [facility] Bilirubin, totalOrdered By: Yesika Faust on 04-14-2025 Bilirubin [Mass/Vol] 0.23 mg/dL 0.00-1.30 [facility] Carbon dioxide, total [Moles /volume] in Central venous bloodOrdered By: Yesika Faust on 04-14-2025 CO2 [Moles/Vol] 27.5 mmol/L 21.0-32.0 [facility] Chloride assayOrdered By: Tad Faust on 04-14-2025 Chloride [Moles/Vol] 100 mmol/L 98-108 [facility] Eosinophil percentageOrdered By: Yesika Faust on 04-14-2025 Eosinophils/100 WBC (Bld) 3.1 % 0-5 [facility] Erythrocyte distribution wid th ratioOrdered By: Yesika Faust on 04-14-2025 Erythrocyte distribution width (RBC) [Ratio] 13.0 % 11.6-14.6 [facility] Erythrocyte distribution wid th standard deviationOrdered By: ky Faust on 04-14-2025 Erythrocyte distribution width (RBC) [Ratio] 46.0 fl High 35.1-43.9 [facility] Glomerular filtration rate ( GFR) estimation/1.73 sq m using serum, plasma, or whole bOrdered By: Yesika Faust on 04-14-2025 GFR/1.73 sq M.predicted among non-blacks MDRD (S/P/Bld) [Vol rate/Area] 87 mL/min/{1.73_m2} >60 [facility] Comment on above: mL/min/1.73m2 CKD-EP I Creatinine Equation (2020) Hematocrit Auto (Bld) [Volum e fraction]Ordered By: Yesika Faust on 04-14-2025 Hematocrit (Bld) [Volume fraction] 44.9 % 37-47 [facility] Hemoglobin measurementOrdere d By: Yesika Faust on 04-14-2025 Hemoglobin (Bld) [Mass/Vol] 14.4 g/dL 12.0-15.0 [facility] Immature granulocytes/100 WB C Auto (Bld)Ordered By: Yesika Faust 04-14-2025 Immature granulocytes/100 WBC (Bld) 0.600 % 0.0-0.9 [facility] Comment on above: IG% - Immature Granu locytes (promyelocytes, myelocytes and metamyelocytes) > 1% indicates that a LEFT SHIFT is Present. Laboratory - Chemistry and C hemistry - challengeOrdered By: Yesika Faust on 04-14-2025 AST [Catalytic activity/Vol] 19 U/L <32 [facility] MCV (mean corpuscular volume ) determinationOrdered By: Yesika Faust 04-14-2025 MCV (RBC) [Entitic vol] 96.8 fL 81-99 [facility] Mean corpuscular hemoglobin (MCH) determinationOrdered By: Yesika Faust on 04-14-2025 MCH (RBC) [Entitic mass] 31.0 pg 27.0-32.0 [facility] Mean corpuscular hemoglobin concentration (MCHC) determinationOrdered By: Yesika Faust on 04-14-2025 MCHC (RBC) [Mass/Vol] 32.1 g/dL 32-36 [facility] Mean platelet volume determi nationOrdered By: Yesika Faust on 04-14-2025 Platelet mean volume (Bld) [Entitic vol] 10.5 fL 6.2-12.0 [facility] Monocyte percentageOrdered B y: Yesika Faust on 04-14-2025 Monocytes/100 WBC (Bld) 9.3 % 0-10 [facility] Neutrophil percentageOrdered By: Yesika Faust on 04-14-2025 Neutrophils/100 WBC (Bld) 63.3 % 47-70 [facility] Nucleated red blood cell per centageOrdered By: Yesika Faust on 04-14-2025 Nucleated RBC/100 WBC (Bld) [Ratio] 0 % 0-5 [facility] Platelet countOrdered By: Tad Faust on 04-14-2025 Platelets (Bld) [#/Vol] 263 10*3/uL 150-450 [facility] Potassium measurement (mass/ volume)Ordered By: Yesika Faust on 04-14-2025 Potassium (Unsp spec) [Mass/Vol] 4.2 mmol/L 3.3-5.1 [facility] RBC Auto (Bld) [#/Vol]Ordere d By: Yesika Faust on 04-14-2025 RBC (Bld) [#/Vol] 4.64 10*6/uL 4.2-5.4 [facility] Serum creatinine measurement (mass/volume)Ordered By: Yesika Faust on 04-14-2025 Creatinine [Mass/Vol] 0.62 mg/dL Low 0.70-1.20 [facility] Serum globulin measurementOr dered By: Yesika Faust on 04-14-2025 Globulin (S) [Mass/Vol] 2.9 g/dL 2.2-4.2 [facility] Serum glucose measurement (m ass/volume)Ordered By: Yesika Faust on 04-14-2025 Glucose [Mass/Vol] 114 mg/dL High 70-99 [facility] Serum or plasma alanine vela otransferase (ALT) measurementOrdered By: Yesika Faust on 04-14-2025 ALT [Catalytic activity/Vol] 19 U/L <35 [facility] Serum or plasma albumin madi urement (mass/volume)Ordered By: Yesika Faust on 04-14-2025 Albumin [Mass/Vol] 4.2 g/dL 3.4-4.8 [facility] Serum or plasma alkaline mariaelena sphatase measurementOrdered By: Yesika Faust on 04-14-2025 ALP [Catalytic activity/Vol] 135 U/L High 35-104 [facility] Serum or plasma calcium madi urement (mass/volume)Ordered By: Yesika Faust on 04-14-2025 Calcium [Mass/Vol] 9.7 mg/dL 7.6-11.0 [facility] Serum or plasma urea nitroge n measurement (mass/volume)Ordered By: Yesika Faust on 04-14-2025 Urea nitrogen [Mass/Vol] 21 mg/dL High 4-19 [facility] Sodium levelOrdered By: Jed Faust on 04-14-2025 Sodium [Moles/Vol] 139 mmol/L 133-145 [facility] Total proteinOrdered By: Randall Faust on 04-14-2025 Protein [Mass/Vol] 7.1 g/dL 5.9-8.4 [facility] White blood cell (WBC) count Ordered By: Yesika Faust on 04-14-2025 WBC (Bld) [#/Vol] 8.3 10*3/uL 4.4-11.0 [facility] Absolute lymphocyte countOrd ered By: Yesika Faust on 03-14-2025 Lymphocytes Auto (Unsp spec) [#/Vol] 2.03 10*3/uL 0.83-4.51 [facility] Absolute neutrophil countOrd ered By: Tadenriquetadenae Christiansonrafaela on 03-14-2025 Neutrophils (Bld) [#/Vol] 3.4 10*3/uL 2.0-7.7 [facility] Anion gap in Serum or Plasma Ordered By: Yesika Faust on 03-14-2025 Anion gap [Moles/Vol] 9 mmol/L 5-15 [facility] Automated lymphocyte count a s percentage of total leukocytesOrdered By: Yesika Faust on 03-14-2025 Lymphocytes/100 WBC Auto (Unsp spec) 31.4 % 19-41 [facility] BUN/creatinine ratioOrdered By: ky Butterfieldkathierafaela on 03-14-2025 Urea nitrogen/Creatinine [Mass ratio] 38.6 mg/mg High 10-20 [facility] Basophil percentageOrdered B y: Yesika Butterfieldkathierafaela on 03-14-2025 Basophils/100 WBC (Bld) 0.5 % 0-1 [facility] Carbon dioxide, total [Moles /volume] in Central venous bloodOrdered By: Yesika Butterfieldkathierafaela on 03-14-2025 CO2 [Moles/Vol] 28.1 mmol/L 21.0-32.0 [facility] Chloride assayOrdered By: Tad enriquetadenae Faust on 03-14-2025 Chloride [Moles/Vol] 105 mmol/L 98-108 [facility] [place] Eosinophil percentageOrdered By: ky Butterfieldkathierafaela on 03-14-2025 Eosinophils/100 WBC (Bld) 5.6 % High 0-5 [facility] Erythrocyte distribution wid th ratioOrdered By: ky Faust on 03-14-2025 Erythrocyte distribution width (RBC) [Ratio] 12.8 % 11.6-14.6 [facility] Erythrocyte distribution wid th standard deviationOrdered By: enrqiuetagoodyearmacarena Faust on 03-14-2025 Erythrocyte distribution width (RBC) [Ratio] 46.6 fl High 35.1-43.9 [facility] Glomerular filtration rate ( GFR) estimation/1.73 sq m using serum, plasma, or whole bOrdered By: Yesika Faust on 03-14-2025 GFR/1.73 sq M.predicted among non-blacks MDRD (S/P/Bld) [Vol rate/Area] 88 mL/min/{1.73_m2} >60 [facility] Comment on above: mL/min/1.73m2 CKD-EP I Creatinine Equation (2020) Hematocrit Auto (Bld) [Volum e fraction]Ordered By: Yesika Faust on 03-14-2025 Hematocrit (Bld) [Volume fraction] 39.8 % 37-47 [facility] Hemoglobin measurementOrdere d By: Yesika Faust on 03-14-2025 Hemoglobin (Bld) [Mass/Vol] 12.8 g/dL 12.0-15.0 [facility] Immature granulocytes/100 WB C Auto (Bld)Ordered By: ky Faust on 03-14-2025 Immature granulocytes/100 WBC (Bld) 0.600 % 0.0-0.9 [facility] Comment on above: IG% - Immature Granu locytes (promyelocytes, myelocytes and metamyelocytes) > 1% indicates that a LEFT SHIFT is Present. MCV (mean corpuscular volume ) determinationOrdered By: Yesika Faust on 03-14-2025 MCV (RBC) [Entitic vol] 99.0 fL 81-99 [facility] Mean corpuscular hemoglobin (MCH) determinationOrdered By: Yesika Faust on 03-14-2025 MCH (RBC) [Entitic mass] 31.8 pg 27.0-32.0 [facility] Mean corpuscular hemoglobin concentration (MCHC) determinationOrdered By: Yesika Faust on 03-14-2025 MCHC (RBC) [Mass/Vol] 32.2 g/dL 32-36 [facility] Mean platelet volume determi nationOrdered By: Yesika Faust on 03-14-2025 Platelet mean volume (Bld) [Entitic vol] 10.4 fL 6.2-12.0 [facility] Monocyte percentageOrdered B y: Yesika Faust on 03-14-2025 Monocytes/100 WBC (Bld) 10.2 % High 0-10 [facility] Neutrophil percentageOrdered By: Yesika Faust on 03-14-2025 Neutrophils/100 WBC (Bld) 51.7 % 47-70 [facility] Nucleated red blood cell per centageOrdered By: Yesika Faust on 03-14-2025 Nucleated RBC/100 WBC (Bld) [Ratio] 0 % 0-5 [facility] Platelet countOrdered By: Tad Faust on 03-14-2025 Platelets (Bld) [#/Vol] 238 10*3/uL 150-450 [facility] Potassium measurement (mass/ volume)Ordered By: Yesika Faust on 03-14-2025 Potassium (Unsp spec) [Mass/Vol] 4.1 mmol/L 3.3-5.1 [facility] RBC Auto (Bld) [#/Vol]Ordere d By: Yesika Faust on 03-14-2025 RBC (Bld) [#/Vol] 4.02 10*6/uL Low 4.2-5.4 [facility] Serum creatinine measurement (mass/volume)Ordered By: Yesika Faust on 03-14-2025 Creatinine [Mass/Vol] 0.60 mg/dL Low 0.70-1.20 [facility] Serum glucose measurement (m ass/volume)Ordered By: Yesika Faust 03-14-2025 Glucose [Mass/Vol] 82 mg/dL 70-99 [facility] Serum or plasma calcium madi urement (mass/volume)Ordered By: Yesika Faust on 03-14-2025 Calcium [Mass/Vol] 9.1 mg/dL 7.6-11.0 [facility] Serum or plasma urea nitroge n measurement (mass/volume)Ordered By: Yesika Faust on 03-14-2025 Urea nitrogen [Mass/Vol] 23 mg/dL High 4-19 [facility] Sodium levelOrdered By: Jed Faust on 03-14-2025 Sodium [Moles/Vol] 142 mmol/L 133-145 [facility] White blood cell (WBC) count Ordered By: Yesika Faust on 03-14-2025 WBC (Bld) [#/Vol] 6.5 10*3/uL 4.4-11.0 [facility] Bilirubin Test strip Ql (U)O rdered By: Yesika Faust on 03-06-2025 Bilirubin Ql (U) Negative Negative [facility] Ketones Test strip Ql (U)Ord ered By: Yesika Faust on 03-06-2025 Ketones Ql (U) 5 mg/dl High Negative [facility] Nitrite Test strip Ql (U)Ord ered By: Yesika Faust on 03-06-2025 Nitrite Ql (U) Negative Negative [facility] Protein Test strip Ql (U)Ord ered By: Yesika Faust on 03-06-2025 Protein Ql (U) 100 mg/dl High Negative [facility] Urine clarityOrdered By: Randall Faust on 03-06-2025 Clarity (U) Turbid Clear [facility] Urine color determinationOrd ered By: Yesika Faust on 03-06-2025 Color (U) Yellow Yellow [facility] Urine cultureOrdered By: Randall Faust on 03-06-2025 Bacteria identified Cx Nom (U) Proteus mirabilis Abnormal [facility] Urine glucose detectionOrder ed By: Yesika Faust on 03-06-2025 Glucose Ql (U) Normal mg/dl Normal [facility] Urine leukocyte esterase det ection by dipstickOrdered By: Yesika Faust on 03-06-2025 Leukocyte esterase Test strip Ql (U) 500 /ul High Negative [facility] Urine pHOrdered By: Fernando Faust on 03-06-2025 pH (U) 6.0 [pH] 5.0 - 8.0 [facility] Urine specific gravity measu rementOrdered By: Yesika Faust on 03-06-2025 Specific gravity (U) [Rel density] 1.020 1.002-1.03 0 [facility] Urine urobilinogen measureme ntOrdered By: Yesika Faust on 03-06-2025 Urobilinogen Ql (U) Normal mg/dl Normal [facility] Serum or plasma valproate me asurement (mass/volume)Ordered By: Yesika Faust on 02-27-2025 Valproate [Mass/Vol] 15 ug/mL Low 50-100 [facility] [place] Comment on above: Valproic Acid concen trations >100 ug/mL are potentially toxic. Absolute lymphocyte countOrd ered By: Yesika Faust on 02-13-2025 Lymphocytes Auto (Unsp spec) [#/Vol] 1.82 10*3/uL 0.83-4.51 [facility] Absolute neutrophil countOrd ered By: Yesika Faust on 02-13-2025 Neutrophils (Bld) [#/Vol] 3.5 10*3/uL 2.0-7.7 [facility] Anion gap in Serum or Plasma Ordered By: Yesika Faust on 02-13-2025 Anion gap [Moles/Vol] 10 mmol/L 5-15 [facility] Automated lymphocyte count a s percentage of total leukocytesOrdered By: Yesika Faust on 02-13-2025 Lymphocytes/100 WBC Auto (Unsp spec) 29.1 % 19-41 [facility] BUN/creatinine ratioOrdered By: Yesika Faust on 02-13-2025 Urea nitrogen/Creatinine [Mass ratio] 32.3 mg/mg High 10-20 [facility] Basophil percentageOrdered B y: Yesika Faust on 02-13-2025 Basophils/100 WBC (Bld) 0.6 % 0-1 [facility] Carbon dioxide, total [Moles /volume] in Central venous bloodOrdered By: Yesika Faust on 02-13-2025 CO2 [Moles/Vol] 28.1 mmol/L 21.0-32.0 [facility] Chloride assayOrdered By: Tad Faust on 02-13-2025 Chloride [Moles/Vol] 101 mmol/L 98-108 [facility] [place] Eosinophil percentageOrdered By: Yesika Faust on 06-02-2025 Eosinophils/100 WBC (Bld) 3.7 % 0-5 [facility] Erythrocyte distribution wid th ratioOrdered By: Yesika Faust on 02-13-2025 Erythrocyte distribution width (RBC) [Ratio] 12.9 % 11.6-14.6 [facility] Erythrocyte distribution wid th standard deviationOrdered By: Yesika Faust on 02-13-2025 Erythrocyte distribution width (RBC) [Ratio] 46.5 fl High 35.1-43.9 [facility] Glomerular filtration rate ( GFR) estimation/1.73 sq m using serum, plasma, or whole bOrdered By: Jedgoodyearmacarena Faust on 02-13-2025 GFR/1.73 sq M.predicted among non-blacks MDRD (S/P/Bld) [Vol rate/Area] 87 mL/min/{1.73_m2} >60 [facility] Comment on above: mL/min/1.73m2 CKD-EP I Creatinine Equation (2020) Hematocrit Auto (Bld) [Volum e fraction]Ordered By: Yesika Faust on 02-13-2025 Hematocrit (Bld) [Volume fraction] 43.2 % 37-47 [facility] Hemoglobin measurementOrdere d By: Yesika Faust on 02-13-2025 Hemoglobin (Bld) [Mass/Vol] 13.9 g/dL 12.0-15.0 [facility] Immature granulocytes/100 WB C Auto (Bld)Ordered By: Yesika Faust on 02-13-2025 Immature granulocytes/100 WBC (Bld) 0.300 % 0.0-0.9 [facility] Comment on above: IG% - Immature Granu locytes (promyelocytes, myelocytes and metamyelocytes) > 1% indicates that a LEFT SHIFT is Present. MCV (mean corpuscular volume ) determinationOrdered By: Yesika Faust on 02-13-2025 MCV (RBC) [Entitic vol] 97.7 fL 81-99 [facility] Mean corpuscular hemoglobin (MCH) determinationOrdered By: enriquetagoodyearmacarena Faust 02-13-2025 MCH (RBC) [Entitic mass] 31.4 pg 27.0-32.0 [facility] Mean corpuscular hemoglobin concentration (MCHC) determinationOrdered By: Yesika aFust on 02-13-2025 MCHC (RBC) [Mass/Vol] 32.2 g/dL 32-36 [facility] Mean platelet volume determi nationOrdered By: Yesika Faust on 02-13-2025 Platelet mean volume (Bld) [Entitic vol] 10.3 fL 6.2-12.0 [facility] Monocyte percentageOrdered B y: Yesika Faust on 02-13-2025 Monocytes/100 WBC (Bld) 10.7 % High 0-10 [facility] Neutrophil percentageOrdered By: Yesika Faust on 02-13-2025 Neutrophils/100 WBC (Bld) 55.6 % 47-70 [facility] Nucleated red blood cell per centageOrdered By: Yesika Faust on 02-13-2025 Nucleated RBC/100 WBC (Bld) [Ratio] 0 % 0-5 [facility] Platelet countOrdered By: Tad Faust on 02-13-2025 Platelets (Bld) [#/Vol] 231 10*3/uL 150-450 [facility] Potassium measurement (mass/ volume)Ordered By: Yesika Faust on 02-13-2025 Potassium (Unsp spec) [Mass/Vol] 4.0 mmol/L 3.3-5.1 [facility] RBC Auto (Bld) [#/Vol]Ordere d By: Yesika Faust on 02-13-2025 RBC (Bld) [#/Vol] 4.42 10*6/uL 4.2-5.4 [facility] Serum creatinine measurement (mass/volume)Ordered By: Yesika Faust on 02-13-2025 Creatinine [Mass/Vol] 0.62 mg/dL Low 0.70-1.20 [facility] Serum glucose measurement (m ass/volume)Ordered By: Yesika Faust on 02-13-2025 Glucose [Mass/Vol] 88 mg/dL 70-99 [facility] Serum or plasma calcium madi urement (mass/volume)Ordered By: Yesika Faust on 02-13-2025 Calcium [Mass/Vol] 9.3 mg/dL 7.6-11.0 [facility] Serum or plasma urea nitroge n measurement (mass/volume)Ordered By: Yesika Faust on 02-13-2025 Urea nitrogen [Mass/Vol] 20 mg/dL High 4-19 [facility] Sodium levelOrdered By: Jed denae Scoutkathierafaela on 02-13-2025 Sodium [Moles/Vol] 140 mmol/L 133-145 [facility] White blood cell (WBC) count Ordered By: Yesika Faust on 02-13-2025 WBC (Bld) [#/Vol] 6.3 10*3/uL 4.4-11.0 [facility] Potassium measurement (mass/ volume)Ordered By: Zeina Balbuena on 01-23-2025 Potassium (Unsp spec) [Mass/Vol] 3.8 mmol/L 3.3-5.1 [facility] Absolute lymphocyte countOrd ered By: Yesika Faust on 01-18-2025 Lymphocytes Auto (Unsp spec) [#/Vol] 1.51 10*3/uL 0.83-4.51 [facility] Absolute neutrophil countOrd ered By: Yesika Butterfieldkathierafaela on 01-18-2025 Neutrophils (Bld) [#/Vol] 3.9 10*3/uL 2.0-7.7 [facility] Anion gap in Serum or Plasma Ordered By: Yesika Faust on 01-18-2025 Anion gap [Moles/Vol] 12 mmol/L 5-15 [facility] Automated lymphocyte count a s percentage of total leukocytesOrdered By: Yesika Faust on 01-18-2025 Lymphocytes/100 WBC Auto (Unsp spec) 23.4 % 19-41 [facility] BUN/creatinine ratioOrdered By: Yesika Faust on 01-18-2025 Urea nitrogen/Creatinine [Mass ratio] 36.2 mg/mg High 10-20 [facility] Basophil percentageOrdered B y: Yesika Faust on 01-18-2025 Basophils/100 WBC (Bld) 0.6 % 0-1 [facility] Bilirubin directOrdered By: Yesika Faust on 01-18-2025 Bilirubin.direct [Mass/Vol] 0.11 mg/dL 0.00-0.30 [facility] Bilirubin, totalOrdered By: Yesika Faust on 01-18-2025 Bilirubin [Mass/Vol] 0.25 mg/dL 0.00-1.30 [facility] [place] Carbon dioxide, total [Moles /volume] in Central venous bloodOrdered By: Yesika Faust on 01-18-2025 CO2 [Moles/Vol] 22.7 mmol/L 21.0-32.0 [facility] Chloride assayOrdered By: Tad Faust on 01-18-2025 Chloride [Moles/Vol] 107 mmol/L 98-108 [facility] [place] Eosinophil percentageOrdered By: Yesika Faust 01-18-2025 Eosinophils/100 WBC (Bld) 6.1 % High 0-5 [facility] Erythrocyte distribution wid th ratioOrdered By: Yesika Faust on 01-18-2025 Erythrocyte distribution width (RBC) [Ratio] 13.4 % 11.6-14.6 [facility] Erythrocyte distribution wid th standard deviationOrdered By: Yesika Faust on 01-18-2025 Erythrocyte distribution width (RBC) [Ratio] 46.6 fl High 35.1-43.9 [facility] Glomerular filtration rate ( GFR) estimation/1.73 sq m using serum, plasma, or whole bOrdered By: Yesika Faust 01-18-2025 GFR/1.73 sq M.predicted among non-blacks MDRD (S/P/Bld) [Vol rate/Area] 80 mL/min/{1.73_m2} >60 [facility] Comment on above: mL/min/1.73m2 CKD-EP I Creatinine Equation (2020) Hematocrit Auto (Bld) [Volum e fraction]Ordered By: Yesika Faust on 01-18-2025 Hematocrit (Bld) [Volume fraction] 42.1 % 37-47 [facility] Hemoglobin measurementOrdere d By: Yesika Faust on 01-18-2025 Hemoglobin (Bld) [Mass/Vol] 14.2 g/dL 12.0-15.0 [facility] Immature granulocytes/100 WB C Auto (Bld)Ordered By: Yesika Faust on 01-18-2025 Immature granulocytes/100 WBC (Bld) 0.500 % 0.0-0.9 [facility] Comment on above: IG% - Immature Granu locytes (promyelocytes, myelocytes and metamyelocytes) > 1% indicates that a LEFT SHIFT is Present. Laboratory - Chemistry and C hemistry - challengeOrdered By: Yesika Faust on 01-18-2025 AST [Catalytic activity/Vol] 19 U/L <32 [facility] MCV (mean corpuscular volume ) determinationOrdered By: Yesika Faust on 01-18-2025 MCV (RBC) [Entitic vol] 94.4 fL 81-99 [facility] Mean corpuscular hemoglobin (MCH) determinationOrdered By: Yesika Faust on 01-18-2025 MCH (RBC) [Entitic mass] 31.8 pg 27.0-32.0 [facility] Mean corpuscular hemoglobin concentration (MCHC) determinationOrdered By: Yesika Faust on 01-18-2025 MCHC (RBC) [Mass/Vol] 33.7 g/dL 32-36 [facility] Mean platelet volume determi nationOrdered By: Yesika Faust on 01-18-2025 Platelet mean volume (Bld) [Entitic vol] 11.6 fL 6.2-12.0 [facility] Monocyte percentageOrdered B y: Yesika Faust on 01-18-2025 Monocytes/100 WBC (Bld) 9.3 % 0-10 [facility] Neutrophil percentageOrdered By: Yesika Faust on 01-18-2025 Neutrophils/100 WBC (Bld) 60.1 % 47-70 [facility] Nucleated red blood cell per centageOrdered By: Yesika Faust on 01-18-2025 Nucleated RBC/100 WBC (Bld) [Ratio] 0 % 0-5 [facility] Platelet countOrdered By: Tad Faust on 01-18-2025 Platelet count TNP [facility] Comment on above: Test not performedPl ease [...] Platelets LM Ql (Bld) SLT DEC ADEQ [facility] Potassium measurement (mass/ volume)Ordered By: Yesika Faust on 01-18-2025 Potassium (Unsp spec) [Mass/Vol] 5.6 mmol/L High 3.3-5.1 [facility] RBC Auto (Bld) [#/Vol]Ordere d By: Yesika Faust on 01-18-2025 RBC (Bld) [#/Vol] 4.46 10*6/uL 4.2-5.4 [facility] Serum creatinine measurement (mass/volume)Ordered By: Yesika Faust on 01-18-2025 Creatinine [Mass/Vol] 0.73 mg/dL 0.70-1.20 [facility] Serum globulin measurementOr dered By: Yesika Faust on 01-18-2025 Globulin (S) [Mass/Vol] 2.5 g/dL 2.2-4.2 [facility] Serum glucose measurement (m ass/volume)Ordered By: Yesika Faust on 01-18-2025 Glucose [Mass/Vol] 84 mg/dL 70-99 [facility] Serum or plasma alanine vela otransferase (ALT) measurementOrdered By: Yesika Faust on 01-18-2025 ALT [Catalytic activity/Vol] 14 U/L <35 [facility] Serum or plasma albumin madi urement (mass/volume)Ordered By: Yesika Faust on 01-18-2025 Albumin [Mass/Vol] 3.7 g/dL 3.4-4.8 [facility] Serum or plasma alkaline mariaelena sphatase measurementOrdered By: Yesika Faust on 01-18-2025 ALP [Catalytic activity/Vol] 106 U/L High 35-104 [facility] Serum or plasma calcium madi urement (mass/volume)Ordered By: Yesika Faust on 01-18-2025 Calcium [Mass/Vol] 9.1 mg/dL 7.6-11.0 [facility] Serum or plasma urea nitroge n measurement (mass/volume)Ordered By: Yesika Faust on 01-18-2025 Urea nitrogen [Mass/Vol] 27 mg/dL High 4-19 [facility] Sodium levelOrdered By: eJd Faust on 01-18-2025 Sodium [Moles/Vol] 141 mmol/L 133-145 [facility] Total proteinOrdered By: Randall Faust on 01-18-2025 Protein [Mass/Vol] 6.1 g/dL 5.9-8.4 [facility] White blood cell (WBC) count Ordered By: Yesika Faust on 01-18-2025 WBC (Bld) [#/Vol] 6.4 10*3/uL 4.4-11.0 [facility] Bilirubin Test strip Ql (U)O rdered By: Yesika Faust on 01-14-2025 Bilirubin Ql (U) Negative Negative [facility] Ketones Test strip Ql (U)Ord ered By: Yesika Faust on 01-14-2025 Ketones Ql (U) Negative Negative [facility] Nitrite Test strip Ql (U)Ord ered By: Yesika Faust on 01-14-2025 Nitrite Ql (U) Negative Negative [facility] Protein Test strip Ql (U)Ord ered By: Yesika Faust on 01-14-2025 Protein Ql (U) 30 mg/dl High Negative [facility] Urine clarityOrdered By: Randall Faust on 01-14-2025 Clarity (U) Cloudy Clear [facility] Urine color determinationOrd ered By: Yesika Faust on 01-14-2025 Color (U) Yellow Yellow [facility] Urine cultureOrdered By: Randall Faust on 01-14-2025 Bacteria identified Cx Nom (U) Proteus mirabilis Abnormal [facility] Urine glucose detectionOrder ed By: Yesika Faust on 01-14-2025 Glucose Ql (U) Normal mg/dl Normal [facility] Urine leukocyte esterase det ection by dipstickOrdered By: Yesika Faust on 01-14-2025 Leukocyte esterase Test strip Ql (U) 500 /ul High Negative [facility] Urine pHOrdered By: Fernando Faust on 01-14-2025 pH (U) 7.0 [pH] 5.0 - 8.0 [facility] Urine specific gravity measu rementOrdered By: Yesika Faust on 01-14-2025 Specific gravity (U) [Rel density] 1.010 1.002-1.03 0 [facility] Urine urobilinogen measureme ntOrdered By: Yesika Faust on 01-14-2025 Urobilinogen Ql (U) Normal mg/dl Normal [facility] Absolute lymphocyte countOrd ered By: Yesika Faust on 01-12-2025 Lymphocytes Auto (Unsp spec) [#/Vol] 1.66 10*3/uL 0.83-4.51 [facility] Absolute neutrophil countOrd ered By: Yesika Faust on 01-12-2025 Neutrophils (Bld) [#/Vol] 3.2 10*3/uL 2.0-7.7 [facility] Anion gap in Serum or Plasma Ordered By: Yesika Faust on 01-12-2025 Anion gap [Moles/Vol] 13 mmol/L 5-15 [facility] Automated lymphocyte count a s percentage of total leukocytesOrdered By: Yesika Faust on 01-12-2025 Lymphocytes/100 WBC Auto (Unsp spec) 27.6 % - [facility] BUN/creatinine ratioOrdered By: Yesika Faust on 01-12-2025 Urea nitrogen/Creatinine [Mass ratio] 36.9 mg/mg High 10-20 [facility] Basophil percentageOrdered B y: Yesika Faust on 01-12-2025 Basophils/100 WBC (Bld) 0.8 % 0-1 [facility] Bilirubin directOrdered By: Yesika Faust on 01-12-2025 Bilirubin.direct [Mass/Vol] 0.11 mg/dL 0.00-0.30 [facility] Bilirubin, totalOrdered By: Yesika Faust on 01-12-2025 Bilirubin [Mass/Vol] 0.24 mg/dL 0.00-1.30 [facility] [place] Carbon dioxide, total [Moles /volume] in Central venous bloodOrdered By: Yesika Faust on 01-12-2025 CO2 [Moles/Vol] 22.3 mmol/L 21.0-32.0 [facility] Chloride assayOrdered By: Tad Faust on 01-12-2025 Chloride [Moles/Vol] 106 mmol/L 98-108 [facility] [place] Eosinophil percentageOrdered By: Yesika Faust on 01-12-2025 Eosinophils/100 WBC (Bld) 7.2 % High 0-5 [facility] Erythrocyte distribution wid th ratioOrdered By: Yesika Faust on 01-12-2025 Erythrocyte distribution width (RBC) [Ratio] 13.5 % 11.6-14.6 [facility] Erythrocyte distribution wid th standard deviationOrdered By: Yesika Faust on 01-12-2025 Erythrocyte distribution width (RBC) [Ratio] 47.9 fl High 35.1-43.9 [facility] Glomerular filtration rate ( GFR) estimation/1.73 sq m using serum, plasma, or whole bOrdered By: Yesika Faust on 01-12-2025 GFR/1.73 sq M.predicted among non-blacks MDRD (S/P/Bld) [Vol rate/Area] 84 mL/min/{1.73_m2} >60 [facility] Comment on above: mL/min/1.73m2 CKD-EP I Creatinine Equation (2020) Hematocrit Auto (Bld) [Volum e fraction]Ordered By: Yesika Faust on 01-12-2025 Hematocrit (Bld) [Volume fraction] 40.4 % 37-47 [facility] Hemoglobin measurementOrdere d By: Yesika Faust on 01-12-2025 Hemoglobin (Bld) [Mass/Vol] 13.3 g/dL 12.0-15.0 [facility] Immature granulocytes/100 WB C Auto (Bld)Ordered By: Yesika Faust on 01-12-2025 Immature granulocytes/100 WBC (Bld) 0.300 % 0.0-0.9 [facility] Comment on above: IG% - Immature Granu locytes (promyelocytes, myelocytes and metamyelocytes) > 1% indicates that a LEFT SHIFT is Present. Laboratory - Chemistry and C hemistry - challengeOrdered By: Yesika Faust on 01-12-2025 AST [Catalytic activity/Vol] 16 U/L <32 [facility] MCV (mean corpuscular volume ) determinationOrdered By: Yesika Faust on 01-12-2025 MCV (RBC) [Entitic vol] 97.1 fL 81-99 [facility] Mean corpuscular hemoglobin (MCH) determinationOrdered By: Yesika Faust on 01-12-2025 MCH (RBC) [Entitic mass] 32.0 pg 27.0-32.0 [facility] Mean corpuscular hemoglobin concentration (MCHC) determinationOrdered By: Yesika Faust on 01-12-2025 MCHC (RBC) [Mass/Vol] 32.9 g/dL 32-36 [facility] Mean platelet volume determi nationOrdered By: Yesika Faust on 01-12-2025 Platelet mean volume (Bld) [Entitic vol] 10.7 fL 6.2-12.0 [facility] Monocyte percentageOrdered B y: Yesika Faust on 01-12-2025 Monocytes/100 WBC (Bld) 10.8 % High 0-10 [facility] Neutrophil percentageOrdered By: Yesika Faust on 01-12-2025 Neutrophils/100 WBC (Bld) 53.3 % 47-70 [facility] Nucleated red blood cell per centageOrdered By: Yesika Faust on 01-12-2025 Nucleated RBC/100 WBC (Bld) [Ratio] 0 % 0-5 [facility] Platelet countOrdered By: Tad Faust on 01-12-2025 Platelets (Bld) [#/Vol] 233 10*3/uL 150-450 [facility] Potassium measurement (mass/ volume)Ordered By: Yesika Faust on 01-12-2025 Potassium (Unsp spec) [Mass/Vol] 4.4 mmol/L 3.3-5.1 [facility] RBC Auto (Bld) [#/Vol]Ordere d By: Yesika Faust on 01-12-2025 RBC (Bld) [#/Vol] 4.16 10*6/uL Low 4.2-5.4 [facility] Serum creatinine measurement (mass/volume)Ordered By: Yesika Faust on 01-12-2025 Creatinine [Mass/Vol] 0.71 mg/dL 0.70-1.20 [facility] Serum globulin measurementOr dered By: Yesika Faust on 01-12-2025 Globulin (S) [Mass/Vol] 2.2 g/dL 2.2-4.2 [facility] Serum glucose measurement (m ass/volume)Ordered By: Yesika Faust on 01-12-2025 Glucose [Mass/Vol] 95 mg/dL 70-99 [facility] Serum or plasma alanine vela otransferase (ALT) measurementOrdered By: Yesika Faust on 01-12-2025 ALT [Catalytic activity/Vol] 12 U/L <35 [facility] Serum or plasma albumin madi urement (mass/volume)Ordered By: Yesika Faust on 01-12-2025 Albumin [Mass/Vol] 3.5 g/dL 3.4-4.8 [facility] Serum or plasma alkaline mariaelena sphatase measurementOrdered By: Yesika Faust on 01-12-2025 ALP [Catalytic activity/Vol] 110 U/L High 35-104 [facility] Serum or plasma calcium madi urement (mass/volume)Ordered By: Yesika Faust on 01-12-2025 Calcium [Mass/Vol] 9.0 mg/dL 7.6-11.0 [facility] Serum or plasma urea nitroge n measurement (mass/volume)Ordered By: Yesika Faust on 01-12-2025 Urea nitrogen [Mass/Vol] 26 mg/dL High 4-19 [facility] Sodium levelOrdered By: Jed Faust on 01-12-2025 Sodium [Moles/Vol] 142 mmol/L 133-145 [facility] Total proteinOrdered By: Randall Faust on 01-12-2025 Protein [Mass/Vol] 5.7 g/dL Low 5.9-8.4 [facility] White blood cell (WBC) count Ordered By: Yesika Faust on 01-12-2025 WBC (Bld) [#/Vol] 6.0 10*3/uL 4.4-11.0 [facility] Absolute lymphocyte countOrd ered By: Yesika Faust on 12-14-2024 Lymphocytes Auto (Unsp spec) [#/Vol] 2.70 10*3/uL 0.83-4.51 [facility] Absolute neutrophil countOrd ered By: Yesika Faust on 12-14-2024 Neutrophils (Bld) [#/Vol] 4.2 10*3/uL 2.0-7.7 [facility] Anion gap in Serum or Plasma Ordered By: Yesika Faust on 12-14-2024 Anion gap [Moles/Vol] 12 mmol/L 5-15 [facility] Automated lymphocyte count a s percentage of total leukocytesOrdered By: Yesika Scoutkathierafaela on 12-14-2024 Lymphocytes/100 WBC Auto (Unsp spec) 33.0 % 19-41 [facility] BUN/creatinine ratioOrdered By: Yesika Faust on 12-14-2024 Urea nitrogen/Creatinine [Mass ratio] 30.0 mg/mg High 10-20 [facility] Basophil percentageOrdered B y: Yesika Faust on 12-14-2024 Basophils/100 WBC (Bld) 1.0 % 0-1 [facility] Carbon dioxide, total [Moles /volume] in Central venous bloodOrdered By: Yesika Scoutkathierafaela on 12-14-2024 CO2 [Moles/Vol] 25.1 mmol/L 21.0-32.0 [facility] Chloride assayOrdered By: Tad Faust on 12-14-2024 Chloride [Moles/Vol] 103 mmol/L 98-108 [facility] [place] Eosinophil percentageOrdered By: Yesika Faust on 12-14-2024 Eosinophils/100 WBC (Bld) 4.4 % 0-5 [facility] Erythrocyte distribution wid th (RBC) [Ratio]Ordered By: Yesika Faust on 12-14-2024 Erythrocyte distribution width (RBC) [Entitic vol] 45.8 fL High 35.1-43.9 [facility] Erythrocyte distribution wid th ratioOrdered By: Yesika Faust on 12-14-2024 Erythrocyte distribution width (RBC) [Ratio] 13.2 % 11.6-14.6 [facility] Erythrocyte distribution wid th standard deviationOrdered By: Yesika Faust on 12-14-2024 Erythrocyte distribution width (RBC) [Ratio] 45.8 fl High 35.1-43.9 [facility] GFR/1.73 sq M.predicted giorgio g non-blacks MDRD (S/P/Bld) [Vol rate/Area]Ordered By: Yesika Faust on 12-14-2024 Estimated GFR (MDRD) Non-Af Amer 76 >60 [facility] Comment on above: mL/min/1.73m2 CKD-EP I Creatinine Equation (2020) Glomerular filtration rate ( GFR) estimation/1.73 sq m using serum, plasma, or whole bOrdered By: Yesika Faust on 12-14-2024 GFR/1.73 sq M.predicted among non-blacks MDRD (S/P/Bld) [Vol rate/Area] 76 mL/min/{1.73_m2} >60 [facility] Comment on above: mL/min/1.73m2 CKD-EP I Creatinine Equation (2020) Hematocrit Auto (Bld) [Volum e fraction]Ordered By: Yesika Faust on 12-14-2024 Hematocrit (Bld) [Volume fraction] 46.6 % 37-47 [facility] Hemoglobin measurementOrdere d By: Yesika Faust on 12-14-2024 Hemoglobin (Bld) [Mass/Vol] 15.2 g/dL High 12.0-15.0 [facility] Immature granulocytes/100 WB C Auto (Bld)Ordered By: Yesika Faust on 12-14-2024 Immature granulocytes/100 WBC (Bld) 0.500 % 0.0-0.9 [facility] Comment on above: IG% - Immature Granu locytes (promyelocytes, myelocytes and metamyelocytes) > 1% indicates that a LEFT SHIFT is Present. Lymphocytes Auto (Unsp spec) [#/Vol]Ordered By: [facility] Butterfieldrafaela on 12-14-2024 Lymphocytes (Bld) [#/Vol] 2.70 10*3/uL 0.83-4.51 [facility] Lymphocytes/100 WBC Auto (Un sp spec)Ordered By: enriquetagoodyearmacarena Faust on 12-14-2024 Lymphocytes/100 WBC (Bld) 33.0 % 19-41 [facility] MCV (mean corpuscular volume ) determinationOrdered By: Yesika Faust on 12-14-2024 MCV (RBC) [Entitic vol] 94.7 fL 81-99 [facility] Mean corpuscular hemoglobin (MCH) determinationOrdered By: [facility] on 12-14-2024 MCH (RBC) [Entitic mass] 30.9 pg 27.0-32.0 [facility] Mean corpuscular hemoglobin concentration (MCHC) determinationOrdered By: enriquetagoodyearmacarena Faust on 12-14-2024 MCHC (RBC) [Mass/Vol] 32.6 g/dL 32-36 [facility] Mean platelet volume determi nationOrdered By: [facility] Faust on 12-14-2024 Platelet mean volume (Bld) [Entitic vol] 10.6 fL 6.2-12.0 [facility] Monocyte percentageOrdered B y: Yesika Faust on 12-14-2024 Monocytes/100 WBC (Bld) 9.7 % 0-10 [facility] Neutrophil percentageOrdered By: ky Faust on 12-14-2024 Neutrophils/100 WBC (Bld) 51.4 % 47-70 [facility] Nucleated red blood cell per centageOrdered By: Yesika Faust on 12-14-2024 Nucleated RBC/100 WBC (Bld) [Ratio] 0 % 0-5 [facility] Platelet countOrdered By: Tad Faust on 12-14-2024 Platelets (Bld) [#/Vol] 268 10*3/uL 150-450 [facility] Potassium (Unsp spec) [Mass/ Vol]Ordered By: Yesika Faust on 12-14-2024 Potassium [Moles/Vol] 4.3 mmol/L 3.3-5.1 [facility] Potassium measurement (mass/ volume)Ordered By: Yesika Faust on 12-14-2024 Potassium (Unsp spec) [Mass/Vol] 4.3 mmol/L 3.3-5.1 [facility] RBC Auto (Bld) [#/Vol]Ordere d By: Yesika Faust on 12-14-2024 RBC (Bld) [#/Vol] 4.92 10*6/uL 4.2-5.4 [facility] Serum creatinine measurement (mass/volume)Ordered By: Yesika Faust on 12-14-2024 Creatinine [Mass/Vol] 0.76 mg/dL 0.70-1.20 [facility] Serum glucose measurement (m ass/volume)Ordered By: Yesika Faust on 12-14-2024 Glucose [Mass/Vol] 105 mg/dL High 70-99 [facility] Serum or plasma calcium madi urement (mass/volume)Ordered By: Yesika Faust on 12-14-2024 Calcium [Mass/Vol] 9.7 mg/dL 7.6-11.0 [facility] Serum or plasma urea nitroge n measurement (mass/volume)Ordered By: Yesika Faust on 12-14-2024 Urea nitrogen [Mass/Vol] 23 mg/dL High 4-19 [facility] Sodium levelOrdered By: Jed Faust on 12-14-2024 Sodium [Moles/Vol] 141 mmol/L 133-145 [facility] White blood cell (WBC) count Ordered By: Yesika Faust on 12-14-2024 WBC (Bld) [#/Vol] 8.2 10*3/uL 4.4-11.0 [facility] Absolute lymphocyte countOrd ered By: ky Faust on 11-14-2024 Lymphocytes Auto (Unsp spec) [#/Vol] 2.15 10*3/uL 0.83-4.51 [facility] Absolute neutrophil countOrd ered By: ky Faust on 11-14-2024 Neutrophils (Bld) [#/Vol] 4.8 10*3/uL 2.0-7.7 [facility] Automated lymphocyte count a s percentage of total leukocytesOrdered By: Yesika Faust on 11-14-2024 Lymphocytes/100 WBC Auto (Unsp spec) 25.7 % 19-41 [facility] BUN/creatinine ratioOrdered By: Yesika Faust on 11-14-2024 Urea nitrogen/Creatinine [Mass ratio] 36.8 mg/mg High 10-20 [facility] Basophil percentageOrdered B y: Yesika Faust on 11-14-2024 Basophils/100 WBC (Bld) 1.0 % 0-1 [facility] Carbon dioxide measurementOr dered By: Yesika Faust on 11-14-2024 CO2 [Moles/Vol] 27.6 mmol/L 22.0-29.0 [facility] Chloride measurementOrdered By: enriquetagoodyearmacarena Faust on 11-14-2024 Chloride [Moles/Vol] 101 mmol/L 96-108 [facility] [place] Eosinophil percentageOrdered By: ky Faust on 11-14-2024 Eosinophils/100 WBC (Bld) 7.9 % High 0-5 [facility] Erythrocyte distribution wid th (RBC) [Ratio]Ordered By: Yesika Faust on 11-14-2024 Erythrocyte distribution width (RBC) [Entitic vol] 46.1 fL High 35.1-43.9 [facility] Erythrocyte distribution wid th ratioOrdered By: enriquetagoodyearmacarena Faust on 11-14-2024 Erythrocyte distribution width (RBC) [Ratio] 12.9 % 11.6-14.6 [facility] Erythrocyte distribution wid th standard deviationOrdered By: Yesika Faust on 11-14-2024 Erythrocyte distribution width (RBC) [Ratio] 46.1 fl High 35.1-43.9 [facility] GFR/1.73 sq M.predicted giorgio g non-blacks MDRD (S/P/Bld) [Vol rate/Area]Ordered By: Yesika Faust on 11-14-2024 Estimated GFR (MDRD) Non-Af Amer 86 >60 [facility] Comment on above: mL/min/1.73m2 CKD-EP I Creatinine Equation (2020) Glomerular filtration rate ( GFR) estimation/1.73 sq m using serum, plasma, or whole bOrdered By: Yesika Faust on 11-14-2024 GFR/1.73 sq M.predicted among non-blacks MDRD (S/P/Bld) [Vol rate/Area] 86 mL/min/{1.73_m2} >60 [facility] Comment on above: mL/min/1.73m2 CKD-EP I Creatinine Equation (2020) Hematocrit Auto (Bld) [Volum e fraction]Ordered By: Yesika Faust on 11-14-2024 Hematocrit (Bld) [Volume fraction] 46.9 % 37-47 [facility] Hemoglobin measurementOrdere d By: Yesika Faust on 11-14-2024 Hemoglobin (Bld) [Mass/Vol] 15.0 g/dL 12.0-15.0 [facility] Immature granulocytes/100 WB C Auto (Bld)Ordered By: Yesika Faust on 11-14-2024 Immature granulocytes/100 WBC (Bld) 0.500 % 0.0-0.9 [facility] Comment on above: IG% - Immature Granu locytes (promyelocytes, myelocytes and metamyelocytes) > 1% indicates that a LEFT SHIFT is Present. Lymphocytes Auto (Unsp spec) [#/Vol]Ordered By: ky Faust on 11-14-2024 Lymphocytes (Bld) [#/Vol] 2.15 10*3/uL 0.83-4.51 [facility] Lymphocytes/100 WBC Auto (Un sp spec)Ordered By: Yesika Faust on 11-14-2024 Lymphocytes/100 WBC (Bld) 25.7 % 19-41 [facility] MCV (mean corpuscular volume ) determinationOrdered By: Yesika Faust on 11-14-2024 MCV (RBC) [Entitic vol] 96.9 fL 81-99 [facility] Mean corpuscular hemoglobin (MCH) determinationOrdered By: Yesika Faust on 11-14-2024 MCH (RBC) [Entitic mass] 31.0 pg 27.0-32.0 [facility] Mean corpuscular hemoglobin concentration (MCHC) determinationOrdered By: Yesika Faust on 11-14-2024 MCHC (RBC) [Mass/Vol] 32.0 g/dL 32-36 [facility] Mean platelet volume determi nationOrdered By: Yesika Faust on 11-14-2024 Platelet mean volume (Bld) [Entitic vol] 10.4 fL 6.2-12.0 [facility] Monocyte percentageOrdered B y: Yesika Faust on 11-14-2024 Monocytes/100 WBC (Bld) 7.9 % 0-10 [facility] Neutrophil percentageOrdered By: Yesika Faust on 11-14-2024 Neutrophils/100 WBC (Bld) 57.0 % 47-70 [facility] Nucleated red blood cell per centageOrdered By: Yesika Faust on 11-14-2024 Nucleated RBC/100 WBC (Bld) [Ratio] 0 % 0-5 [facility] Platelet countOrdered By: Tad enriquetadenae Faust on 11-14-2024 Platelets (Bld) [#/Vol] 269 10*3/uL 150-450 [facility] RBC Auto (Bld) [#/Vol]Ordere d By: Yesika Faust on 11-14-2024 RBC (Bld) [#/Vol] 4.84 10*6/uL 4.2-5.4 [facility] Serum creatinine measurement (mass/volume)Ordered By: Yesika Faust on 11-14-2024 Creatinine [Mass/Vol] 0.65 mg/dL Low 0.70-1.20 [facility] Serum glucose measurement (m ass/volume)Ordered By: Yesika Faust on 11-14-2024 Glucose [Mass/Vol] 97 mg/dL 70-99 [facility] Serum or plasma anion gap de termination (moles/volume)Ordered By: Yesika Faust on 11-14-2024 Anion gap [Moles/Vol] 12 mmol/L 5-15 [facility] Serum or plasma calcium madi urement (mass/volume)Ordered By: Yesika Faust on 11-14-2024 Calcium [Mass/Vol] 9.4 mg/dL 7.6-11.0 [facility] Serum or plasma potassium me asurementOrdered By: Yesika Faust on 11-14-2024 Potassium [Moles/Vol] 4.3 mmol/L 3.3-5.1 [facility] Comment on above: Hemolysis present, R esults could be affected. Serum or plasma sodium measu rement (moles/volume)Ordered By: Yesika Faust on 11-14-2024 Sodium [Moles/Vol] 141 mmol/L 133-145 [facility] Serum or plasma urea nitroge n measurement (mass/volume)Ordered By: Yesika Faust on 11-14-2024 Urea nitrogen [Mass/Vol] 24 mg/dL High 4-19 [facility] White blood cell (WBC) count Ordered By: Yesika Faust on 11-14-2024 WBC (Bld) [#/Vol] 8.4 10*3/uL 4.4-11.0 [facility] Absolute lymphocyte countOrd ered By: Yesika Faust on 10-17-2024 Lymphocytes Auto (Unsp spec) [#/Vol] 1.81 10*3/uL 0.83-4.51 [facility] Absolute neutrophil countOrd ered By: Yesika Faust on 10-17-2024 Neutrophils (Bld) [#/Vol] 3.3 10*3/uL 2.0-7.7 [facility] Automated lymphocyte count a s percentage of total leukocytesOrdered By: Yesika Faust on 10-17-2024 Lymphocytes/100 WBC Auto (Unsp spec) 26.5 % 19-41 [facility] Basophil percentageOrdered B y: Yesika Faust on 10-17-2024 Basophils/100 WBC (Bld) 0.7 % 0-1 [facility] Bilirubin directOrdered By: Yesika Faust on 10-17-2024 Bilirubin.direct [Mass/Vol] 0.09 mg/dL 0.00-0.30 [facility] Bilirubin, totalOrdered By: Yesika Faust on 10-17-2024 Bilirubin [Mass/Vol] 0.20 mg/dL 0.20-1.00 [facility] [place] Comment on above: For patients on eltr ombopag therapy, use of Dimension [place] TBIL is not recommended. Blood urea nitrogen (BUN)/cr eatinine ratioOrdered By: Yesika Faust on 10-17-2024 Urea nitrogen/Creatinine [Mass ratio] 49.3 mg/mg High 10-20 [facility] Carbon dioxide measurementOr dered By: Yesika Faust on 10-17-2024 CO2 [Moles/Vol] 29.0 mmol/L 21.0-32.0 [facility] Chloride measurementOrdered By: Yesika Faust on 10-17-2024 Chloride [Moles/Vol] 106 mmol/L 98-107 [facility] [place] Eosinophil percentageOrdered By: Yesika Faust on 10-17-2024 Eosinophils/100 WBC (Bld) 14.6 % High 0-5 [facility] Erythrocyte distribution wid th (RBC) [Ratio]Ordered By: Yesika Faust on 10-17-2024 Erythrocyte distribution width (RBC) [Entitic vol] 46.3 fL High 35.1-43.9 [facility] [facility] [place] Erythrocyte distribution wid th ratioOrdered By: Yesika Faust on 10-17-2024 Erythrocyte distribution width (RBC) [Ratio] 13.0 % 11.6-14.6 [facility] [place] Erythrocyte distribution wid th standard deviationOrdered By: Yesika Faust on 10-17-2024 Erythrocyte distribution width (RBC) [Ratio] 46.3 fl High 35.1-43.9 [facility] [place] Estimated glomerular filtrat ion rate (GFR) AmericanOrdered By: Tadenriquetasaeidmacarena Faust on 10-17-2024 Estimated GFR (MDRD) Amer 120 mL/min >60 [facility] [place] Comment on above: GFR Calc Glomerular filtration rate ( GFR) estimationOrdered By: Yesika Faust on 10-17-2024 Estimated GFR (MDRD) Non-Af Amer 99 mL/min >60 [facility] [place] Comment on above: Non- GFR Calc GFR/1.73 sq M.predicted among non-blacks MDRD (S/P/Bld) [Vol rate/Area] 99 mL/min/{1.73_m2} >60 [facility] [place] Comment on above: Non- GFR Calc Glucose measurementOrdered B y: Jedsaeidmacarena Faust on 10-17-2024 Glucose [Mass/Vol] 86 mg/dL 74-106 [facility] Hematocrit Auto (Bld) [Volum e fraction]Ordered By: ky Faust on 10-17-2024 Hematocrit (Bld) [Volume fraction] 41.4 % 37-47 [facility] [place] Hemoglobin measurementOrdere d By: Tadenriquetasaeidmacarena Faust on 10-17-2024 Hemoglobin (Bld) [Mass/Vol] 13.5 g/dL 12.0-15.0 [facility] [place] Immature granulocytes/100 WB C Auto (Bld)Ordered By: Yesika Faust on 10-17-2024 Immature granulocytes/100 WBC (Bld) 0.400 % 0.0-0.9 [facility] [place] Comment on above: IG% - Immature Granu locytes (promyelocytes, myelocytes and metamyelocytes) > 1% indicates that a LEFT SHIFT is Present. Laboratory - Chemistry and C hemistry - challengeOrdered By: Yesika Faust on 10-17-2024 AST [Catalytic activity/Vol] 12 U/L Low 15-37 [facility] [place] Lymphocytes Auto (Unsp spec) [#/Vol]Ordered By: Yesika Faust on 10-17-2024 Lymphocytes (Bld) [#/Vol] 1.81 10*3/uL 0.83-4.51 [facility] [place] Lymphocytes/100 WBC Auto (Un sp spec)Ordered By: Yesika Faust on 10-17-2024 Lymphocytes/100 WBC (Bld) 26.5 % 19-41 [facility] [place] MCV (mean corpuscular volume ) determinationOrdered By: Yesika Faust on 10-17-2024 MCV (RBC) [Entitic vol] 98.6 fL 81-99 [facility] [place] Mean corpuscular hemoglobin (MCH) determinationOrdered By: Yesika Faust on 10-17-2024 MCH (RBC) [Entitic mass] 32.1 pg High 27.0-32.0 [facility] [place] Mean corpuscular hemoglobin concentration (MCHC) determinationOrdered By: Yesika Faust on 10-17-2024 MCHC (RBC) [Mass/Vol] 32.6 g/dL 32-36 [facility] Mean platelet volume determi nationOrdered By: Yesika Faust on 10-17-2024 Platelet mean volume (Bld) [Entitic vol] 10.6 fL 6.2-12.0 [facility] [place] Monocyte percentageOrdered B y: Yesika Faust on 10-17-2024 Monocytes/100 WBC (Bld) 9.5 % 0-10 [facility] [place] Neutrophil percentageOrdered By: Yesika Faust on 10-17-2024 Neutrophils/100 WBC (Bld) 48.3 % 47-70 [facility] [place] Nucleated red blood cell per centageOrdered By: Yesika Faust on 10-17-2024 Nucleated RBC/100 WBC (Bld) [Ratio] 0 % 0-5 [facility] [place] Platelet countOrdered By: Tad Faust on 10-17-2024 Platelets (Bld) [#/Vol] 232 10*3/uL 150-450 [facility] [place] Potassium measurementOrdered By: Yesika Faust on 10-17-2024 Potassium [Moles/Vol] 4.0 mmol/L 3.5-5.1 [facility] RBC Auto (Bld) [#/Vol]Ordere d By: Yesika Faust on 10-17-2024 RBC (Bld) [#/Vol] 4.20 10*6/uL 4.2-5.4 [facility] Serum anion gap measurementO rdered By: Yesika Faust on 10-17-2024 Anion gap [Moles/Vol] 5 mmol/L 5-15 [facility] Serum globulin measurementOr dered By: Yesika Faust on 10-17-2024 Globulin (S) [Mass/Vol] 3.2 g/dL 2.2-4.2 [facility] [place] Serum or plasma alanine vela otransferase (ALT) measurementOrdered By: Yesika Faust on 10-17-2024 ALT [Catalytic activity/Vol] 19 U/L 13-56 [facility] [place] Serum or plasma albumin madi urement (mass/volume)Ordered By: Yesika Faust on 10-17-2024 Albumin [Mass/Vol] 3.1 g/dL Low 3.2-5.0 [facility] Serum or plasma alkaline mariaelena sphatase measurementOrdered By: Yesika Faust on 10-17-2024 ALP [Catalytic activity/Vol] 108 U/L 45-117 [facility] [place] Serum or plasma calcium madi urement (mass/volume)Ordered By: Yesika Faust on 10-17-2024 Calcium [Mass/Vol] 9.1 mg/dL 8.5-10.1 [facility] Serum or plasma creatinine m easurement (mass/volume)Ordered By: Yesika Faust on 10-17-2024 Creatinine [Mass/Vol] 0.61 mg/dL 0.55-1.02 [facility] Comment on above: The validity of the calculated GFR & GFRAA in patients over 70 years has not been determined. Clinical correlation is essential. Serum or plasma urea nitroge n measurement (mass/volume)Ordered By: Yesika Faust on 10-17-2024 Urea nitrogen [Mass/Vol] 30 mg/dL High 7-18 [facility] [place] Sodium levelOrdered By: Jed Faust on 10-17-2024 Sodium [Moles/Vol] 140 mmol/L 136-145 [facility] Total proteinOrdered By: Randall montsemacarena Faust on 10-17-2024 Protein [Mass/Vol] 6.3 g/dL Low 6.4-8.2 [facility] White blood cell (WBC) count Ordered By: Yesika Faust on 10-17-2024 WBC (Bld) [#/Vol] 6.8 10*3/uL 4.4-11.0 [facility] Bilirubin Test strip Ql (U)O rdered By: Yesika Faust on 10-14-2024 Bilirubin Ql (U) Negative Negative [facility] [place] Epithelial cells.squamous LM Ql (Urine sed)Ordered By: Yesika Faust on 10-14-2024 Epithelial cells.squamous LM.HPF (Urine sed) [#/Area] 0 /[HPF] 5-10 [facility] [place] Glucose Ql (U)Ordered By: Tad Faust on 10-14-2024 Urine Glucose (UA) Normal mg/dl Normal [facility] [place] Ketones Test strip Ql (U)Ord ered By: Yesika Faust on 10-14-2024 Ketones Ql (U) Negative Negative [facility] [place] Microscopic analysis of urin e for red blood cells (RBC)Ordered By: Yesika Faust on 10-14-2024 Microscopic analysis of urine for red blood cells (RBC) 0 SEEN /hpf 0-5 [facility] [place] Urine RBC 0 SEEN /hpf 0-5 [facility] [place] Mucus LM Ql (Urine sed)Order ed By: Yesika Faust on 10-14-2024 Mucus Ql (Urine sed) 0 SEEN /hpf [facility] Nitrite Test strip Ql (U)Ord ered By: Yesika Faust on 10-14-2024 Nitrite Ql (U) Positive High Negative [facility] [place] Protein Test strip Ql (U)Ord ered By: Yesika Faust on 10-14-2024 Protein Ql (U) 15 mg/dl High Negative [facility] [place] Squamous epithelial cells de tection in urine sediment by light microscopyOrdered By: Yesika Faust on 10-14-2024 Epithelial cells.squamous LM Ql (Urine sed) 0 SEEN /hpf 5-10 [facility] [place] Triple phosphate crystals LM Ql (Urine sed)Ordered By: Yesika Faust on 10-14-2024 Urine Triple Phosphate Crystals 1+ /hpf [facility] [place] Triple phosphate crystals de tection in urine sediment by light microscopyOrdered By: Yesika Faust on 10-14-2024 Triple phosphate crystals LM Ql (Urine sed) 1+ /hpf [facility] [place] Urine blood detectionOrdered By: Yesika Faust on 10-14-2024 Urine Occult Blood Negative Negative [facility] Urine clarityOrdered By: Randall Faust on 10-14-2024 Clarity (U) Sl. Cloudy Clear [facility] [place] Urine color determinationOrd ered By: Yesika Faust on 10-14-2024 Color (U) Yellow Yellow [facility] [place] Urine cultureOrdered By: Randall Faust on 10-14-2024 Bacteria identified Cx Nom (U) Proteus mirabilis Abnormal [facility] [place] Urine glucose detectionOrder ed By: Yesika Faust on 10-14-2024 Glucose Ql (U) Normal mg/dl Normal [facility] [place] Urine leukocyte esterase det ection by dipstickOrdered By: Yesika Faust on 10-14-2024 Leukocyte esterase Test strip Ql (U) 25 /ul High Negative [facility] [place] Urine pHOrdered By: Fernando Faust on 10-14-2024 pH (U) 9.0 [pH] 5.0 - 8.0 [facility] [place] Urine sediment bacteria coun t by microscopy (number/high power field)Ordered By: Yesika Faust on 10-14-2024 Bacteria LM.HPF (Urine sed) [#/Area] 1 /[HPF] None Seen [facility] [place] Urine specific gravity measu rementOrdered By: Yesika Faust on 10-14-2024 Specific gravity (U) [Rel density] 1.015 1.002-1.03 0 [facility] [place] Urine urobilinogen measureme ntOrdered By: Yesika Faust on 10-14-2024 Urobilinogen Ql (U) Normal mg/dl Normal [facility] Urobilinogen Ql (U)Ordered B y: Jedsaeidmacarena Faust on 10-14-2024 Urine Urobilinogen Normal mg/dl Normal [facility] [place] White blood cell countOrdere d By: Yesika Faust on 10-14-2024 Urine WBC 0 SEEN /hpf 0-5 [facility] [place] White blood cell count 0 SEEN /hpf 0-5 [facility] Absolute neutrophil countOrd ered By: Yesika Faust on 09-16-2024 Neutrophils (Bld) [#/Vol] 4.4 10*3/uL 2.0-7.7 [facility] [place] Basophil percentageOrdered B y: Yesika Faust on 09-16-2024 Basophils/100 WBC (Bld) 0.7 % 0-1 [facility] [place] Blood urea nitrogen (BUN)/cr eatinine ratioOrdered By: Yesika Faust on 09-16-2024 Urea nitrogen/Creatinine [Mass ratio] 40.5 mg/mg High 10-20 [facility] [place] Carbon dioxide measurementOr dered By: Yesika Faust on 09-16-2024 CO2 [Moles/Vol] 28.0 mmol/L 21.0-32.0 [facility] [place] Chloride measurementOrdered By: Yesika Faust on 09-16-2024 Chloride [Moles/Vol] 106 mmol/L 98-107 [facility] [place] Eosinophil percentageOrdered By: Yesika Faust on 09-16-2024 Eosinophils/100 WBC (Bld) 3.0 % 0-5 [facility] [place] Erythrocyte distribution wid th (RBC) [Ratio]Ordered By: Yesika Faust on 09-16-2024 Erythrocyte distribution width (RBC) [Entitic vol] 48.3 fL High 35.1-43.9 [facility] [place] Erythrocyte distribution wid th ratioOrdered By: Yesika Faust on 09-16-2024 Erythrocyte distribution width (RBC) [Ratio] 13.2 % 11.6-14.6 [facility] [place] Estimated glomerular filtrat ion rate (GFR) AmericanOrdered By: Yesika Faust on 09-16-2024 Estimated GFR (MDRD) Amer 162 mL/min >60 [facility] [place] Comment on above: GFR Calc Glomerular filtration rate ( GFR) estimationOrdered By: Yesika Faust on 09-16-2024 Estimated GFR (MDRD) Non-Af Amer 134 mL/min >60 [facility] [place] Comment on above: Non- GFR Calc Glucose measurementOrdered B y: Yesika Faust on 09-16-2024 Glucose [Mass/Vol] 89 mg/dL 74-106 [facility] Hematocrit Auto (Bld) [Volum e fraction]Ordered By: Yesika Faust on 09-16-2024 Hematocrit (Bld) [Volume fraction] 38.9 % 37-47 [facility] [place] Hemoglobin measurementOrdere d By: Yesika Faust on 09-16-2024 Hemoglobin (Bld) [Mass/Vol] 12.4 g/dL 12.0-15.0 [facility] [place] Immature granulocytes/100 WB C Auto (Bld)Ordered By: Yesika Faust on 09-16-2024 Immature granulocytes/100 WBC (Bld) 0.300 % 0.0-0.9 [facility] [place] Comment on above: IG% - Immature Granu locytes (promyelocytes, myelocytes and metamyelocytes) > 1% indicates that a LEFT SHIFT is Present. Lymphocytes Auto (Unsp spec) [#/Vol]Ordered By: Yesika Faust on 09-16-2024 Lymphocytes (Bld) [#/Vol] 1.59 10*3/uL 0.83-4.51 [facility] [place] Lymphocytes/100 WBC Auto (Un sp spec)Ordered By: Yesika Faust on 09-16-2024 Lymphocytes/100 WBC (Bld) 23.1 % 19-41 [facility] [place] MCV (mean corpuscular volume ) determinationOrdered By: Yesika Faust on 09-16-2024 MCV (RBC) [Entitic vol] 98.7 fL 81-99 [facility] [place] Mean corpuscular hemoglobin (MCH) determinationOrdered By: Yesika Faust on 09-16-2024 MCH (RBC) [Entitic mass] 31.5 pg 27.0-32.0 [facility] [place] Mean corpuscular hemoglobin concentration (MCHC) determinationOrdered By: Yesika Faust on 09-16-2024 MCHC (RBC) [Mass/Vol] 31.9 g/dL Low 32-36 [facility] Mean platelet volume determi nationOrdered By: Yesika Faust on 09-16-2024 Platelet mean volume (Bld) [Entitic vol] 10.6 fL 6.2-12.0 [facility] [place] Monocyte percentageOrdered B y: Yesika Faust on 09-16-2024 Monocytes/100 WBC (Bld) 9.6 % 0-10 [facility] [place] Neutrophil percentageOrdered By: Yesika Faust on 09-16-2024 Neutrophils/100 WBC (Bld) 63.3 % 47-70 [facility] [place] Nucleated red blood cell per centageOrdered By: Yesika Faust on 09-16-2024 Nucleated RBC/100 WBC (Bld) [Ratio] 0 % 0-5 [facility] [place] Platelet countOrdered By: Tad Faust on 09-16-2024 Platelets (Bld) [#/Vol] 241 10*3/uL 150-450 [facility] [place] Potassium measurementOrdered By: Yesika Faust on 09-16-2024 Potassium [Moles/Vol] 3.8 mmol/L 3.5-5.1 [facility] RBC Auto (Bld) [#/Vol]Ordere d By: Yesika Faust on 09-16-2024 RBC (Bld) [#/Vol] 3.94 10*6/uL Low 4.2-5.4 [facility] Serum anion gap measurementO rdered By: Yesika Faust on 09-16-2024 Anion gap [Moles/Vol] 5 mmol/L 5-15 [facility] Serum or plasma calcium madi urement (mass/volume)Ordered By: Yesika Faust on 09-16-2024 Calcium [Mass/Vol] 8.8 mg/dL 8.5-10.1 [facility] Serum or plasma creatinine m easurement (mass/volume)Ordered By: Yesika Fuast on 09-16-2024 Creatinine [Mass/Vol] 0.47 mg/dL Low 0.55-1.02 [facility] Comment on above: The validity of the calculated GFR & GFRAA in patients over 70 years has not been determined. Clinical correlation is essential. Serum or plasma urea nitroge n measurement (mass/volume)Ordered By: Yesika Faust on 09-16-2024 Urea nitrogen [Mass/Vol] 19 mg/dL High 7-18 [facility] [place] Sodium levelOrdered By: Jed denae Christianne on 09-16-2024 Sodium [Moles/Vol] 139 mmol/L 136-145 [facility] White blood cell (WBC) count Ordered By: Yesika Faust on 09-16-2024 WBC (Bld) [#/Vol] 6.9 10*3/uL 4.4-11.0 [facility] Absolute neutrophil countOrd ered By: Yesika Faust on 08-16-2024 Neutrophils (Bld) [#/Vol] 3.4 10*3/uL 2.0-7.7 [facility] [place] Basophil percentageOrdered B y: Yesika Faust on 08-16-2024 Basophils/100 WBC (Bld) 0.7 % 0-1 [facility] [place] Blood urea nitrogen (BUN)/cr eatinine ratioOrdered By: Yesika Faust on 08-16-2024 Urea nitrogen/Creatinine [Mass ratio] 35.8 mg/mg High 10-20 [facility] [place] Carbon dioxide measurementOr dered By: Yesika Faust on 08-16-2024 CO2 [Moles/Vol] 28.0 mmol/L 21.0-32.0 [facility] [place] Chloride measurementOrdered By: Yesika Faust on 08-16-2024 Chloride [Moles/Vol] 110 mmol/L High 98-107 [facility] [place] Eosinophil percentageOrdered By: Yesika Faust on 08-16-2024 Eosinophils/100 WBC (Bld) 3.1 % 0-5 [facility] [place] Erythrocyte distribution wid th (RBC) [Ratio]Ordered By: Yesika Faust on 08-16-2024 Erythrocyte distribution width (RBC) [Entitic vol] 50.8 fL High 35.1-43.9 [facility] [place] Erythrocyte distribution wid th ratioOrdered By: Yesika Faust on 08-16-2024 Erythrocyte distribution width (RBC) [Ratio] 14.0 % 11.6-14.6 [facility] [place] Estimated glomerular filtrat ion rate (GFR) AmericanOrdered By: Yesika Faust on 08-16-2024 Estimated GFR (MDRD) Amer 141 mL/min >60 [facility] [place] Comment on above: GFR Calc Glomerular filtration rate ( GFR) estimationOrdered By: Yesika Faust on 08-16-2024 Estimated GFR (MDRD) Non-Af Amer 116 mL/min >60 [facility] [place] Comment on above: Non- GFR Calc Glucose measurementOrdered B y: Yesika Faust on 08-16-2024 Glucose [Mass/Vol] 85 mg/dL 74-106 [facility] Hematocrit Auto (Bld) [Volum e fraction]Ordered By: Yesika Faust on 08-16-2024 Hematocrit (Bld) [Volume fraction] 41.2 % 37-47 [facility] [place] Hemoglobin measurementOrdere d By: Yesika Faust on 08-16-2024 Hemoglobin (Bld) [Mass/Vol] 12.9 g/dL 12.0-15.0 [facility] [place] Immature granulocytes/100 WB C Auto (Bld)Ordered By: Yesika Faust on 08-16-2024 Immature granulocytes/100 WBC (Bld) 0.300 % 0.0-0.9 [facility] [place] Comment on above: IG% - Immature Granu locytes (promyelocytes, myelocytes and metamyelocytes) > 1% indicates that a LEFT SHIFT is Present. Lymphocytes Auto (Unsp spec) [#/Vol]Ordered By: Yesika Faust on 08-16-2024 Lymphocytes (Bld) [#/Vol] 1.61 10*3/uL 0.83-4.51 [facility] [place] Lymphocytes/100 WBC Auto (Un sp spec)Ordered By: Yesika Faust on 08-16-2024 Lymphocytes/100 WBC (Bld) 27.4 % 19-41 [facility] [place] MCV (mean corpuscular volume ) determinationOrdered By: Yesika Faust on 08-16-2024 MCV (RBC) [Entitic vol] 99.0 fL 81-99 [facility] [place] Mean corpuscular hemoglobin (MCH) determinationOrdered By: Yesika Faust on 08-16-2024 MCH (RBC) [Entitic mass] 31.0 pg 27.0-32.0 [facility] [place] Mean corpuscular hemoglobin concentration (MCHC) determinationOrdered By: Yesika Faust on 08-16-2024 MCHC (RBC) [Mass/Vol] 31.3 g/dL Low 32-36 [facility] Mean platelet volume determi nationOrdered By: Yesika Faust on 08-16-2024 Platelet mean volume (Bld) [Entitic vol] 10.8 fL 6.2-12.0 [facility] [place] Monocyte percentageOrdered B y: Yesika Faust on 08-16-2024 Monocytes/100 WBC (Bld) 10.5 % High 0-10 [facility] [place] Neutrophil percentageOrdered By: Yesika Faust on 08-16-2024 Neutrophils/100 WBC (Bld) 58.0 % 47-70 [facility] [place] Nucleated red blood cell per centageOrdered By: Yesika Faust on 08-16-2024 Nucleated RBC/100 WBC (Bld) [Ratio] 0 % 0-5 [facility] [place] Platelet countOrdered By: Tad Faust on 08-16-2024 Platelets (Bld) [#/Vol] 242 10*3/uL 150-450 [facility] [place] Potassium measurementOrdered By: Yesika Faust on 08-16-2024 Potassium [Moles/Vol] 3.9 mmol/L 3.5-5.1 [facility] RBC Auto (Bld) [#/Vol]Ordere d By: Yesika Faust on 08-16-2024 RBC (Bld) [#/Vol] 4.16 10*6/uL Low 4.2-5.4 [facility] Serum anion gap measurementO rdered By: Yesika Faust on 08-16-2024 Anion gap [Moles/Vol] 4 mmol/L Low 5-15 [facility] Serum or plasma calcium madi urement (mass/volume)Ordered By: Yesika Butterfieldkathierafaela on 08-16-2024 Calcium [Mass/Vol] 8.9 mg/dL 8.5-10.1 [facility] Serum or plasma creatinine m easurement (mass/volume)Ordered By: Yesika Faust on 08-16-2024 Creatinine [Mass/Vol] 0.53 mg/dL Low 0.55-1.02 [facility] Comment on above: The validity of the calculated GFR & GFRAA in patients over 70 years has not been determined. Clinical correlation is essential. Serum or plasma urea nitroge n measurement (mass/volume)Ordered By: Yesika Faust on 08-16-2024 Urea nitrogen [Mass/Vol] 19 mg/dL High 7-18 [facility] [place] Sodium levelOrdered By: Jed denae Christianne on 08-16-2024 Sodium [Moles/Vol] 142 mmol/L 136-145 [facility] White blood cell (WBC) count Ordered By: Yesika Faust on 08-16-2024 WBC (Bld) [#/Vol] 5.9 10*3/uL 4.4-11.0 [facility] Absolute lymphocyte countOrd ered By: Yesika Faust on 11-17-2023 Lymphocytes Auto (Unsp spec) [#/Vol] 1.64 10*3/uL 0.83-4.51 [facility] [place] Automated lymphocyte count a s percentage of total leukocytesOrdered By: Yesika Faust on 11-17-2023 Lymphocytes/100 WBC Auto (Unsp spec) 26.6 % 19-41 [facility] [place] Basophil percentageOrdered B y: Yesika Faust on 11-17-2023 Basophils/100 WBC (Bld) 0.6 % 0-1 [facility] [place] Chloride [Moles/Vol] 109 mmol/L 98-107 [facility] [place] Eosinophils/100 WBC (Bld) 1.8 % 0-5 [facility] [place] Glucose [Mass/Vol] 91 mg/dL 74-106 [facility] Hemoglobin (Bld) [Mass/Vol] 12.9 g/dL 12.0-15.0 [facility] [place] Monocytes/100 WBC (Bld) 9.4 % 0-10 [facility] [place] Neutrophils (Bld) [#/Vol] 3.8 10*3/uL 2.0-7.7 [facility] [place] Neutrophils/100 WBC (Bld) 61.1 % 47-70 [facility] [place] Potassium [Moles/Vol] 3.8 mmol/L 3.5-5.1 [facility] Sodium [Moles/Vol] 140 mmol/L 136-145 [facility] WBC (Bld) [#/Vol] 6.2 10*3/uL 4.4-11.0 [facility] Determination of erythrocyte mean corpuscular volume (MCV)Ordered By: Yesika Faust on 11-17-2023 MCV (RBC) [Entitic vol] 91.8 fL 81-99 [facility] [place] Erythrocyte distribution wid th ratioOrdered By: [facility]aren[facility] Fa[facility] on 11-17-2023 Erythrocyte distribution width (RBC) [Ratio] 14.3 % 11.6-14.6 [facility] [place] Erythrocyte distribution wid th standard deviationOrdered By: [facility] Scoutrafaela on 11-17-2023 Erythrocyte distribution width (RBC) [Entitic vol] 48.0 fL 35.1-43.9 [facility] [place] Hematocrit Auto (Bld) [Volum e fraction]Ordered By: Jedgoodyearmacarena Faust on 11-17-2023 Hematocrit (Bld) [Volume fraction] 39.3 % 37-47 [facility] [place] Immature granulocytes/100 WB C Auto (Bld)Ordered By: ky Faust on 11-17-2023 Immature granulocytes/100 WBC (Bld) 0.500 % 0.0-0.9 [facility] [place] Comment on above: IG% - Immature Granu locytes (promyelocytes, myelocytes and metamyelocytes) > 1% indicates that a LEFT SHIFT is Present. Laboratory - Chemistry and C hemistry - challengeOrdered By: Yesika Faust on 11-17-2023 CO2 [Moles/Vol] 28.0 mmol/L 21.0-32.0 [facility] [place] Urea nitrogen/Creatinine [Mass ratio] 18.6 mg/mg 10-20 [facility] [place] Laboratory - Hematology and Cell countsOrdered By: Yesika Faust on 11-17-2023 MCH (RBC) [Entitic mass] 30.1 pg 27.0-32.0 [facility] [place] MCHC (RBC) [Mass/Vol] 32.8 g/dL 32-36 [facility] Nucleated RBC/100 WBC (Bld) [Ratio] 0 % 0-5 [facility] [place] Platelet mean volume (Bld) [Entitic vol] 9.9 fL 6.2-12.0 [facility] Platelets (Bld) [#/Vol] 230 10*3/uL 150-450 [facility] No Panel InformationOrdered By: Yesika Faust on 11-17-2023 Estimated GFR (MDRD) Amer 94 mL/min >60 [facility] Comment on above: GFR Calc Estimated GFR (MDRD) Non-Af Amer 78 mL/min >60 [facility] Comment on above: Non- GFR Calc RBC Auto (Bld) [#/Vol]Ordere d By: Yesika Faust on 11-17-2023 RBC (Bld) [#/Vol] 4.28 10*6/uL 4.2-5.4 [facility] Serum or plasma calcium madi urement (mass/volume)Ordered By: Yesika Faust on 11-17-2023 Calcium [Mass/Vol] 9.2 mg/dL 8.5-10.1 [facility] Serum or plasma creatinine m easurement (mass/volume)Ordered By: Yesika Faust on 11-17-2023 Creatinine [Mass/Vol] 0.75 mg/dL 0.55-1.02 [facility] Comment on above: The validity of the calculated GFR & GFRAA in patients over 70 years has not been determined. Clinical correlation is essential. Serum or plasma urea nitroge n measurement (mass/volume)Ordered By: Yesika Faust on 11-17-2023 Urea nitrogen [Mass/Vol] 14 mg/dL 7-18 [facility] Thin prep Papanicolaou smear with manual screeningOrdered By: Yesika Faust on 11-17-2023 Thin prep Papanicolaou smear with manual screening 3 5-15 [facility] Absolute lymphocyte countOrd ered By: Yesika Faust on 08-18-2023 Lymphocytes Auto (Unsp spec) [#/Vol] 1.67 10*3/uL 0.83-4.51 [facility] Basophil percentageOrdered B y: Yesika Faust on 08-18-2023 Basophils/100 WBC (Bld) 0.7 % 0-1 [facility] Chloride [Moles/Vol] 109 mmol/L 98-107 [facility] [place] Eosinophils/100 WBC (Bld) 2.8 % 0-5 [facility] Glucose [Mass/Vol] 89 mg/dL 74-106 [facility] Neutrophils (Bld) [#/Vol] 3.1 10*3/uL 2.0-7.7 [facility] Neutrophils/100 WBC (Bld) 56.1 % 47-70 [facility] Potassium [Moles/Vol] 4.0 mmol/L 3.5-5.1 [facility] Sodium [Moles/Vol] 141 mmol/L 136-145 [facility] WBC (Bld) [#/Vol] 5.4 10*3/uL 4.4-11.0 [facility] Blood erythrocytes count (nu mber/volume)Ordered By: Yesika Faust on 08-18-2023 RBC (Bld) [#/Vol] 4.55 10*6/uL 4.2-5.4 [facility] Blood hemoglobin measurement (mass/volume)Ordered By: Yesika Faust on 08-18-2023 Hemoglobin (Bld) [Mass/Vol] 12.9 g/dL 12.0-15.0 [facility] Blood lymphocytes/100 leukoc ytesOrdered By: Yesika Faust on 08-18-2023 Lymphocytes/100 WBC (Bld) 30.8 % 19-41 [facility] Blood monocytes/100 leukocyt esOrdered By: Yesika Faust on 08-18-2023 Monocytes/100 WBC (Bld) 9.4 % 0-10 [facility] Blood platelet mean volumeOr dered By: Yesika Faust on 08-18-2023 Platelet mean volume (Bld) [Entitic vol] 10.4 fL 6.2-12.0 [facility] Determination of erythrocyte mean corpuscular volume (MCV)Ordered By: Yesika Faust on 08-18-2023 MCV (RBC) [Entitic vol] 89.5 fL 81-99 [facility] Hematocrit Auto (Bld) [Volum e fraction]Ordered By: Yesika Faust on 08-18-2023 Hematocrit (Bld) [Volume fraction] 40.7 % 37-47 [facility] Laboratory - Chemistry and C hemistry - challengeOrdered By: enriquetagoodyearmacarena Faust on 08-18-2023 CO2 [Moles/Vol] 29.0 mmol/L 21.0-32.0 [facility] Urea nitrogen/Creatinine [Mass ratio] 16.6 mg/mg 10-20 [facility] Laboratory - Hematology and Cell countsOrdered By: Yesika Faust on 08-18-2023 Erythrocyte distribution width (RBC) [Entitic vol] 45.5 fL 35.1-43.9 [facility] Erythrocyte distribution width (RBC) [Ratio] 13.9 % 11.6-14.6 [facility] Immature granulocytes/100 WBC (Bld) 0.200 % 0.0-0.9 [facility] Comment on above: IG% - Immature Granu locytes (promyelocytes, myelocytes and metamyelocytes) > 1% indicates that a LEFT SHIFT is Present. MCH (RBC) [Entitic mass] 28.4 pg 27.0-32.0 [facility] Nucleated RBC/100 WBC (Bld) [Ratio] 0 % 0-5 [facility] MCHC Auto (RBC) [Mass/Vol]Or dered By: Yesika Faust on 08-18-2023 MCHC (RBC) [Mass/Vol] 31.7 g/dL 32-36 [facility] No Panel InformationOrdered By: Yesika Faust on 08-18-2023 Estimated GFR (MDRD) Amer 109 mL/min >60 [facility] Comment on above: GFR Calc Estimated GFR (MDRD) Non-Af Amer 90 mL/min >60 [facility] Comment on above: Non- GFR Calc Platelets bldOrdered By: Randall Faust on 08-18-2023 Platelets (Bld) [#/Vol] 221 10*3/uL 150-450 [facility] Serum or plasma calcium madi urement (mass/volume)Ordered By: Yesika Faust on 08-18-2023 Calcium [Mass/Vol] 8.8 mg/dL 8.5-10.1 [facility] Serum or plasma creatinine m easurement (mass/volume)Ordered By: Yesika Faust on 08-18-2023 Creatinine [Mass/Vol] 0.66 mg/dL 0.55-1.02 [facility] Comment on above: The validity of the calculated GFR & GFRAA in patients over 70 years has not been determined. Clinical correlation is essential. Serum or plasma urea nitroge n measurement (mass/volume)Ordered By: Yesika Faust on 08-18-2023 Urea nitrogen [Mass/Vol] 11 mg/dL 7-18 [facility] Thin prep Papanicolaou smear with manual screeningOrdered By: Yesika Faust on 08-18-2023 Thin prep Papanicolaou smear with manual screening 3 5-15 [facility] Absolute lymphocyte countOrd ered By: Yesika Faust on 05-19-2023 Lymphocytes Auto (Unsp spec) [#/Vol] 1.86 10*3/uL 0.83-4.51 [facility] Basophil percentageOrdered B y: Yesika Faust on 05-19-2023 Basophils/100 WBC (Bld) 0.8 % 0-1 [facility] Chloride [Moles/Vol] 107 mmol/L 98-107 [facility] [place] Eosinophils/100 WBC (Bld) 1.5 % 0-5 [facility] Glucose [Mass/Vol] 125 mg/dL 74-106 [facility] Comment on above: Fasting Glucose resu lt from 100 to 125 mg/dL suggests IMPAIRED HOMEOSTASIS per A.D.A. criteria. Neutrophils (Bld) [#/Vol] 3.4 10*3/uL 2.0-7.7 [facility] Neutrophils/100 WBC (Bld) 55.5 % 47-70 [facility] Potassium [Moles/Vol] 3.6 mmol/L 3.5-5.1 [facility] Sodium [Moles/Vol] 139 mmol/L 136-145 [facility] WBC (Bld) [#/Vol] 6.2 10*3/uL 4.4-11.0 [facility] Blood erythrocytes count (nu mber/volume)Ordered By: Yesika Faust on 05-19-2023 RBC (Bld) [#/Vol] 4.24 10*6/uL 4.2-5.4 [facility] Blood hemoglobin measurement (mass/volume)Ordered By: Yesika Faust on 05-19-2023 Hemoglobin (Bld) [Mass/Vol] 11.7 g/dL 12.0-15.0 [facility] Blood lymphocytes/100 leukoc ytesOrdered By: Yesika Faust on 05-19-2023 Lymphocytes/100 WBC (Bld) 30.1 % 19-41 [facility] Blood monocytes/100 leukocyt esOrdered By: ky Faust on 05-19-2023 Monocytes/100 WBC (Bld) 11.8 % 0-10 [facility] Blood platelet mean volumeOr dered By: Yesika Faust on 05-19-2023 Platelet mean volume (Bld) [Entitic vol] 10.5 fL 6.2-12.0 [facility] Determination of erythrocyte mean corpuscular volume (MCV)Ordered By: Yesika Faust on 05-19-2023 MCV (RBC) [Entitic vol] 90.3 fL 81-99 [facility] Hematocrit Auto (Bld) [Volum e fraction]Ordered By: Yesika Faust on 05-19-2023 Hematocrit (Bld) [Volume fraction] 38.3 % 37-47 [facility] Laboratory - Chemistry and C hemistry - challengeOrdered By: Yesika Faust on 05-19-2023 CO2 [Moles/Vol] 29.0 mmol/L 21.0-32.0 [facility] Urea nitrogen/Creatinine [Mass ratio] 21.6 mg/mg 10-20 [facility] Laboratory - Hematology and Cell countsOrdered By: Yesika Faust on 05-19-2023 Erythrocyte distribution width (RBC) [Entitic vol] 50.2 fL 35.1-43.9 [facility] Erythrocyte distribution width (RBC) [Ratio] 15.2 % 11.6-14.6 [facility] Immature granulocytes/100 WBC (Bld) 0.300 % 0.0-0.9 [facility] Comment on above: IG% - Immature Granu locytes (promyelocytes, myelocytes and metamyelocytes) > 1% indicates that a LEFT SHIFT is Present. MCH (RBC) [Entitic mass] 27.6 pg 27.0-32.0 [facility] Nucleated RBC/100 WBC (Bld) [Ratio] 0 % 0-5 [facility] MCHC Auto (RBC) [Mass/Vol]Or dered By: Yesika Faust on 05-19-2023 MCHC (RBC) [Mass/Vol] 30.5 g/dL 32-36 [facility] No Panel InformationOrdered By: Yesika Faust on 05-19-2023 Estimated GFR (MDRD) Amer 74 mL/min >60 [facility] Comment on above: GFR Calc Estimated GFR (MDRD) Non-Af Amer 61 mL/min >60 [facility] Comment on above: Non- GFR Calc Platelets bldOrdered By: Randall Fasut on 05-19-2023 Platelets (Bld) [#/Vol] 234 10*3/uL 150-450 [facility] Serum or plasma calcium madi urement (mass/volume)Ordered By: Yesika Faust on 05-19-2023 Calcium [Mass/Vol] 8.7 mg/dL 8.5-10.1 [facility] Serum or plasma creatinine m easurement (mass/volume)Ordered By: Yesika Faust on 05-19-2023 Creatinine [Mass/Vol] 0.92 mg/dL 0.55-1.02 [facility] Comment on above: The validity of the calculated GFR & GFRAA in patients over 70 years has not been determined. Clinical correlation is essential. Serum or plasma urea nitroge n measurement (mass/volume)Ordered By: Yesika Faust on 05-19-2023 Urea nitrogen [Mass/Vol] 20 mg/dL 7-18 [facility] Thin prep Papanicolaou smear with manual screeningOrdered By: enriquetagoodyearmacarena Faust on 05-19-2023 Thin prep Papanicolaou smear with manual screening 3 5-15 [facility] Absolute lymphocyte countOrd ered By: enriquetagoodyearmacarena Faust on 02-17-2023 Lymphocytes Auto (Unsp spec) [#/Vol] 1.67 10*3/uL 0.83-4.51 [facility] Basophil percentageOrdered B y: Yesika Faust on 02-17-2023 Basophils/100 WBC (Bld) 0.8 % 0-1 [facility] Chloride [Moles/Vol] 109 mmol/L 98-107 [facility] [place] Eosinophils/100 WBC (Bld) 2.8 % 0-5 [facility] Glucose [Mass/Vol] 94 mg/dL 74-106 [facility] Neutrophils (Bld) [#/Vol] 3.9 10*3/uL 2.0-7.7 [facility] Neutrophils/100 WBC (Bld) 60.0 % 47-70 [facility] Potassium [Moles/Vol] 3.7 mmol/L 3.5-5.1 [facility] Sodium [Moles/Vol] 141 mmol/L 136-145 [facility] WBC (Bld) [#/Vol] 6.5 10*3/uL 4.4-11.0 [facility] Blood erythrocytes count (nu mber/volume)Ordered By: Yesika Faust on 02-17-2023 RBC (Bld) [#/Vol] 4.33 10*6/uL 4.2-5.4 [facility] Blood hemoglobin measurement (mass/volume)Ordered By: Yesika Faust on 02-17-2023 Hemoglobin (Bld) [Mass/Vol] 11.4 g/dL 12.0-15.0 [facility] Blood lymphocytes/100 leukoc ytesOrdered By: Yesika Faust on 02-17-2023 Lymphocytes/100 WBC (Bld) 25.9 % 19-41 [facility] Blood monocytes/100 leukocyt esOrdered By: Yesika Faust on 02-17-2023 Monocytes/100 WBC (Bld) 10.2 % 0-10 [facility] Blood platelet mean volumeOr dered By: Yesika Faust on 02-17-2023 Platelet mean volume (Bld) [Entitic vol] 10.6 fL 6.2-12.0 [facility] Determination of erythrocyte mean corpuscular volume (MCV)Ordered By: Yesika Faust on 02-17-2023 MCV (RBC) [Entitic vol] 86.4 fL 81-99 [facility] Hematocrit Auto (Bld) [Volum e fraction]Ordered By: Yesika Faust on 02-17-2023 Hematocrit (Bld) [Volume fraction] 37.4 % 37-47 [facility] Laboratory - Chemistry and C hemistry - challengeOrdered By: Yesika Faust on 02-17-2023 CO2 [Moles/Vol] 28.0 mmol/L 21.0-32.0 [facility] Urea nitrogen/Creatinine [Mass ratio] 16.1 mg/mg 10-20 [facility] Laboratory - Hematology and Cell countsOrdered By: Yesika Faust on 02-17-2023 Erythrocyte distribution width (RBC) [Entitic vol] 56.0 fL 35.1-43.9 [facility] Erythrocyte distribution width (RBC) [Ratio] 17.5 % 11.6-14.6 [facility] Immature granulocytes/100 WBC (Bld) 0.300 % 0.0-0.9 [facility] Comment on above: IG% - Immature Granu locytes (promyelocytes, myelocytes and metamyelocytes) > 1% indicates that a LEFT SHIFT is Present. MCH (RBC) [Entitic mass] 26.3 pg 27.0-32.0 [facility] Nucleated RBC/100 WBC (Bld) [Ratio] 0 % 0-5 [facility] MCHC Auto (RBC) [Mass/Vol]Or dered By: Yesika Faust on 02-17-2023 MCHC (RBC) [Mass/Vol] 30.5 g/dL 32-36 [facility] No Panel InformationOrdered By: Yesika Faust on 02-17-2023 Estimated GFR (MDRD) Amer 106 mL/min >60 [facility] Comment on above: GFR Calc Estimated GFR (MDRD) Non-Af Amer 87 mL/min >60 [facility] Comment on above: Non- GFR Calc Platelets bldOrdered By: Randall Faust on 02-17-2023 Platelets (Bld) [#/Vol] 228 10*3/uL 150-450 [facility] Serum or plasma calcium madi urement (mass/volume)Ordered By: Yesika Faust on 02-17-2023 Calcium [Mass/Vol] 8.8 mg/dL 8.5-10.1 [facility] Serum or plasma creatinine m easurement (mass/volume)Ordered By: Yesika Faust on 02-17-2023 Creatinine [Mass/Vol] 0.68 mg/dL 0.55-1.02 [facility] Comment on above: The validity of the calculated GFR & GFRAA in patients over 70 years has not been determined. Clinical correlation is essential. Serum or plasma urea nitroge n measurement (mass/volume)Ordered By: Yesika Faust on 02-17-2023 Urea nitrogen [Mass/Vol] 11 mg/dL 7-18 [facility] Thin prep Papanicolaou smear with manual screeningOrdered By: Yesika Faust on 02-17-2023 Thin prep Papanicolaou smear with manual screening 4 5-15 [facility] Basophil percentageOrdered B y: Cl Tsang on 01-12-2023 Cholesterol [Mass/Vol] 112 mg/dL <[address] [facility] Comment on above: <200 mg/dL Desirable 200-240 mg/dL Borderline >240 mg/dL High Risk Triglyceride [Mass/Vol] 110 mg/dL <199 [facility] Comment on above: The drugs N-Acetylcy steine and Metamizole may falsely depress this assay.Serum Triglycerides Reference Interval Normal <150 mg/dL Borderline high 150 - 199 mg/dL High 200 - 499 mg/dL Very High > or = 500 mg/dL Serum or plasma cholesterol in HDL measurement (mass/volume)Ordered By: Cl Tsang on 01-12-2023 Cholesterol in HDL [Mass/Vol] 50 mg/dL >40 [facility] Comment on above: The drugs N-Acetylcy steine and Metamizole may falsely depress this assay. Reference Range HDL <40 mg/dL Low HDL Cholesterol HDL >or= 60 mg/dL High HDL Cholesterol Serum or plasma cholesterol in VLDL measurement (mass/volume)Ordered By: Cl Tsang on 01-12-2023 Cholesterol in VLDL [Mass/Vol] 22 mg/dL 5-40 [facility] Serum or plasma low density lipoprotein (LDL) cholesterol measurement (mass/volume)Ordered By: Cl Tsang on 01-12-2023 Cholesterol in LDL [Mass/Vol] 40 mg/dL 0-130 [facility] Basophil percentageOrdered B y: Yesika Faust on 11-18-2022 Chloride [Moles/Vol] 108 mmol/L 98-107 [facility] [place] Glucose [Mass/Vol] 114 mg/dL 74-106 [facility] Comment on above: Fasting Glucose resu lt from 100 to 125 mg/dL suggests IMPAIRED HOMEOSTASIS per A.D.A. criteria. Potassium [Moles/Vol] 4.1 mmol/L 3.5-5.1 [facility] Sodium [Moles/Vol] 142 mmol/L 136-145 [facility] WBC (Bld) [#/Vol] 5.6 10*3/uL 4.4-11.0 [facility] Blood erythrocytes count (nu mber/volume)Ordered By: Yesika Faust on 11-18-2022 RBC (Bld) [#/Vol] 3.89 10*6/uL 4.2-5.4 [facility] Blood hemoglobin measurement (mass/volume)Ordered By: Yesika Faust on 11-18-2022 Hemoglobin (Bld) [Mass/Vol] 10.5 g/dL 12.0-15.0 [facility] Blood platelet mean volumeOr dered By: Yesika Faust on 11-18-2022 Platelet mean volume (Bld) [Entitic vol] 10.7 fL 6.2-12.0 [facility] Determination of erythrocyte mean corpuscular volume (MCV)Ordered By: Yesika Faust on 11-18-2022 MCV (RBC) [Entitic vol] 88.4 fL 81-99 [facility] Hematocrit Auto (Bld) [Volum e fraction]Ordered By: Yesika Faust on 11-18-2022 Hematocrit (Bld) [Volume fraction] 34.4 % 37-47 [facility] Laboratory - Chemistry and C hemistry - challengeOrdered By: Yesika Faust on 11-18-2022 CO2 [Moles/Vol] 27.0 mmol/L 21.0-32.0 [facility] Urea nitrogen/Creatinine [Mass ratio] 18.9 mg/mg 10-20 [facility] Laboratory - Hematology and Cell countsOrdered By: Yesika Faust on 11-18-2022 Erythrocyte distribution width (RBC) [Entitic vol] 43.8 fL 35.1-43.9 [facility] Erythrocyte distribution width (RBC) [Ratio] 13.4 % 11.6-14.6 [facility] MCH (RBC) [Entitic mass] 27.0 pg 27.0-32.0 [facility] MCHC Auto (RBC) [Mass/Vol]Or dered By: Yesika Faust on 11-18-2022 MCHC (RBC) [Mass/Vol] 30.5 g/dL 32-36 [facility] No Panel InformationOrdered By: Yesika Faust on 11-18-2022 Estimated GFR (MDRD) Amer 115 mL/min >60 [facility] Comment on above: GFR Calc Estimated GFR (MDRD) Non-Af Amer 95 mL/min >60 [facility] Comment on above: Non- GFR Calc Platelets bldOrdered By: Randall Faust on 11-18-2022 Platelets (Bld) [#/Vol] 247 10*3/uL 150-450 [facility] Serum or plasma calcium madi urement (mass/volume)Ordered By: Yesika Faust on 11-18-2022 Calcium [Mass/Vol] 9.1 mg/dL 8.5-10.1 [facility] Serum or plasma creatinine m easurement (mass/volume)Ordered By: Yseika Faust on 11-18-2022 Creatinine [Mass/Vol] 0.64 mg/dL 0.55-1.02 [facility] Comment on above: The validity of the calculated GFR & GFRAA in patients over 70 years has not been determined. Clinical correlation is essential. Serum or plasma urea nitroge n measurement (mass/volume)Ordered By: Yesika Faust on 11-18-2022 Urea nitrogen [Mass/Vol] 12 mg/dL 7-18 [facility] Thin prep Papanicolaou smear with manual screeningOrdered By: [facility] on 11-18-2022 Thin prep Papanicolaou smear with manual screening 7 5-15 [facility] Absolute lymphocyte countOrd ered By: Yesika Faust on 08-19-2022 Lymphocytes Auto (Unsp spec) [#/Vol] 1.60 10*3/uL 0.83-4.51 [facility] Basophil percentageOrdered B y: Yesika Faust on 08-19-2022 Basophils/100 WBC (Bld) 0.4 % 0-1 [facility] Chloride [Moles/Vol] 105 mmol/L 98-107 [facility] [place] Eosinophils/100 WBC (Bld) 0.2 % 0-5 [facility] Glucose [Mass/Vol] 96 mg/dL 74-106 [facility] Neutrophils (Bld) [#/Vol] 3.3 10*3/uL 2.0-7.7 [facility] Neutrophils/100 WBC (Bld) 59.4 % 47-70 [facility] Potassium [Moles/Vol] 4.0 mmol/L 3.5-5.1 [facility] Sodium [Moles/Vol] 141 mmol/L 136-145 [facility] WBC (Bld) [#/Vol] 5.6 10*3/uL 4.4-11.0 [facility] Blood erythrocytes count (nu mber/volume)Ordered By: Yesika Faust on 08-19-2022 RBC (Bld) [#/Vol] 4.44 10*6/uL 4.2-5.4 [facility] Blood hemoglobin measurement (mass/volume)Ordered By: Yesika Faust on 08-19-2022 Hemoglobin (Bld) [Mass/Vol] 13.0 g/dL 12.0-15.0 [facility] Blood lymphocytes/100 leukoc ytesOrdered By: Yesika Faust on 08-19-2022 Lymphocytes/100 WBC (Bld) 28.8 % 19-41 [facility] Blood monocytes/100 leukocyt esOrdered By: Yesika Faust on 08-19-2022 Monocytes/100 WBC (Bld) 11.0 % 0-10 [facility] Blood platelet mean volumeOr dered By: Yesika Faust on 08-19-2022 Platelet mean volume (Bld) [Entitic vol] 10.7 fL 6.2-12.0 [facility] Determination of erythrocyte mean corpuscular volume (MCV)Ordered By: Yesika Faust on 08-19-2022 MCV (RBC) [Entitic vol] 93.0 fL 81-99 [facility] Hematocrit Auto (Bld) [Volum e fraction]Ordered By: Yesika Faust on 08-19-2022 Hematocrit (Bld) [Volume fraction] 41.3 % 37-47 [facility] Laboratory - Chemistry and C hemistry - challengeOrdered By: Yesika Faust on 08-19-2022 CO2 [Moles/Vol] 29.0 mmol/L 21.0-32.0 [facility] Urea nitrogen/Creatinine [Mass ratio] 19.4 mg/mg 10-20 [facility] Laboratory - Hematology and Cell countsOrdered By: Yesika Faust on 08-19-2022 Erythrocyte distribution width (RBC) [Entitic vol] 44.3 fL 35.1-43.9 [facility] Erythrocyte distribution width (RBC) [Ratio] 12.9 % 11.6-14.6 [facility] Immature granulocytes/100 WBC (Bld) 0.200 % 0.0-0.9 [facility] Comment on above: IG% - Immature Granu locytes (promyelocytes, myelocytes and metamyelocytes) > 1% indicates that a LEFT SHIFT is Present. MCH (RBC) [Entitic mass] 29.3 pg 27.0-32.0 [facility] Nucleated RBC/100 WBC (Bld) [Ratio] 0 % 0-5 [facility] MCHC Auto (RBC) [Mass/Vol]Or dered By: Yesika Faust on 08-19-2022 MCHC (RBC) [Mass/Vol] 31.5 g/dL 32-36 [facility] No Panel InformationOrdered By: Yesika Faust on 08-19-2022 Estimated GFR (MDRD) Amer 99 mL/min >60 [facility] Comment on above: GFR Calc Estimated GFR (MDRD) Non-Af Amer 82 mL/min >60 [facility] Comment on above: Non- GFR Calc Platelets bldOrdered By: Randall Faust on 08-19-2022 Platelets (Bld) [#/Vol] 216 10*3/uL 150-450 [facility] Serum or plasma calcium madi urement (mass/volume)Ordered By: Yesika Faust on 08-19-2022 Calcium [Mass/Vol] 9.4 mg/dL 8.5-10.1 [facility] Serum or plasma creatinine m easurement (mass/volume)Ordered By: Yesika Faust on 08-19-2022 Creatinine [Mass/Vol] 0.72 mg/dL 0.55-1.02 [facility] Comment on above: The validity of the calculated GFR & GFRAA in patients over 70 years has not been determined. Clinical correlation is essential. Serum or plasma urea nitroge n measurement (mass/volume)Ordered By: Yesika Faust on 08-19-2022 Urea nitrogen [Mass/Vol] 14 mg/dL 7-18 [facility] Thin prep Papanicolaou smear with manual screeningOrdered By: Yesika Faust on 08-19-2022 Thin prep Papanicolaou smear with manual screening 7 5-15 [facility] Absolute lymphocyte counton 05-20-2022 Lymphocytes Auto (Unsp spec) [#/Vol] 1.88 10*3/uL 0.83-4.51 [facility] Work Phone: Basophil percentageon 2021 Basophils/100 WBC (Bld) 0.7 % 0-1 [facility] Work Phone: Chloride [Moles/Vol] 111 mmol/L 98-107 [facility] [place] Work Phone: Eosinophils/100 WBC (Bld) 4.0 % 0-5 [facility] Work Phone: Glucose [Mass/Vol] 94 mg/dL 74-106 [facility] Work Phone: Neutrophils (Bld) [#/Vol] 3.3 10*3/uL 2.0-7.7 [facility] Work Phone: Neutrophils/100 WBC (Bld) 55.6 % 47-70 [facility] Work Phone: Potassium [Moles/Vol] 4.1 mmol/L 3.5-5.1 [facility] Work Phone: Sodium [Moles/Vol] 139 mmol/L 136-145 [facility] Work Phone: WBC (Bld) [#/Vol] 6.0 10*3/uL 4.4-11.0 [facility] Work Phone: Blood erythrocytes count (nu mber/volume)on 05-20-2022 RBC (Bld) [#/Vol] 4.01 10*6/uL 4.2-5.4 [facility] Work Phone: Blood hemoglobin measurement (mass/volume)on 05-20-2022 Hemoglobin (Bld) [Mass/Vol] 13.0 g/dL 12.0-15.0 [facility] Work Phone: Blood lymphocytes/100 leukoc yteson 05-20-2022 Lymphocytes/100 WBC (Bld) 31.5 % 19-41 [facility] Work Phone: Blood monocytes/100 leukocyt eson 05-20-2022 Monocytes/100 WBC (Bld) 8.0 % 0-10 [facility] Work Phone: Blood platelet mean volumeon 05-20-2022 Platelet mean volume (Bld) [Entitic vol] 10.3 fL 6.2-12.0 [facility] Work Phone: Determination of erythrocyte mean corpuscular volume (MCV)on 05-20-2022 MCV (RBC) [Entitic vol] 99.3 fL 81-99 [facility] Work Phone: Hematocrit Auto (Bld) [Volum e fraction]on 05-20-2022 Hematocrit (Bld) [Volume fraction] 39.8 % 37-47 [facility] Work Phone: Laboratory - Chemistry and C hemistry - challengeon 05-20-2022 CO2 [Moles/Vol] 17.0 mmol/L 21.0-32.0 [facility] Work Phone: Urea nitrogen/Creatinine [Mass ratio] 13.2 mg/mg 10-20 [facility] Work Phone: Laboratory - Hematology and Cell countson 05-20-2022 Erythrocyte distribution width (RBC) [Entitic vol] 52.0 fL 35.1-43.9 [facility] Work Phone: Erythrocyte distribution width (RBC) [Ratio] 14.4 % 11.6-14.6 [facility] Work Phone: Immature granulocytes/100 WBC (Bld) 0.200 % 0.0-0.9 [facility] Work Phone: Comment on above: IG% - Immature Granu locytes (promyelocytes, myelocytes and metamyelocytes) > 1% indicates that a LEFT SHIFT is Present. MCH (RBC) [Entitic mass] 32.4 pg 27.0-32.0 [facility] Work Phone: Nucleated RBC/100 WBC (Bld) [Ratio] 0 % 0-5 [facility] Work Phone: MCHC Auto (RBC) [Mass/Vol]on 05-20-2022 MCHC (RBC) [Mass/Vol] 32.7 g/dL 32-36 [facility] Work Phone: No Panel Informationon 05-20 Estimated GFR (MDRD) Amer 94 mL/min >60 [facility] Work Phone: Comment on above: GFR Calc Estimated GFR (MDRD) Non-Af Amer 77 mL/min >60 [facility] Work Phone: Comment on above: Non- GFR Calc Platelets bldon 05-20-2022 Platelets (Bld) [#/Vol] 188 10*3/uL 150-450 [facility] Work Phone: Serum or plasma calcium madi urement (mass/volume)on 05-20-2022 Calcium [Mass/Vol] 9.5 mg/dL 8.5-10.1 [facility] Work Phone: Serum or plasma creatinine m easurement (mass/volume)on 05-20-2022 Creatinine [Mass/Vol] 0.76 mg/dL 0.55-1.02 [facility] Work Phone: Comment on above: The validity of the calculated GFR & GFRAA in patients over 70 years has not been determined. Clinical correlation is essential. Serum or plasma urea nitroge n measurement (mass/volume)on 05-20-2022 Urea nitrogen [Mass/Vol] 10 mg/dL 7-18 [facility] Work Phone: Thin prep Papanicolaou smear with manual screeningon 05-20-2022 Thin prep Papanicolaou smear with manual screening 11 5-15 [facility] Work Phone: Bilirubin Test strip Ql (U)o n 03-07-2022 Bilirubin Ql (U) Negative Negative [facility] Work Phone: Ketones Test strip Ql (U)on 03-07-2022 Ketones Ql (U) Negative Negative [facility] Work Phone: Nitrite Test strip Ql (U)on 03-07-2022 Nitrite Ql (U) Positive Negative [facility] Work Phone: Protein Test strip Ql (U)on 03-07-2022 Protein Ql (U) Negative Negative [facility] Work Phone: Urine blood detectionon 02-13 RBC Ql (U) 25 /ul Negative [facility] Work Phone: Urine clarityon 03-07-2022 Clarity (U) Clear Clear [facility] Work Phone: Urine color determinationon 03-07-2022 Color (U) Yellow Yellow [facility] Work Phone: Urine glucose detectionon Glucose Ql (U) Normal mg/dl Normal [facility] Work Phone: Urine leukocyte esterase det ection by dipstickon 03-07-2022 Leukocyte esterase Test strip Ql (U) 500 /ul Negative [facility] Work Phone: Urine pHon 03-07-2022 pH (U) 6.5 [pH] 5.0 - 8.0 [facility] Work Phone: Urine specific gravity measu rementon 03-07-2022 Specific gravity (U) [Rel density] 1.010 1.002-1.03 0 [facility] Work Phone: Urobilinogen Auto test strip Ql (U)on 03-07-2022 Urobilinogen Ql (U) Normal mg/dl Normal [facility] Work Phone: Basophil percentageon 2021 Cholesterol [Mass/Vol] 117 mg/dL <[address] [facility] Work Phone: Comment on above: <200 mg/dL Desirable 200-240 mg/dL Borderline >240 mg/dL High Risk Triglyceride [Mass/Vol] 118 mg/dL [facility] Work Phone: Comment on above: The drugs N-Acetylcy steine and Metamizole may falsely depress this assay.Serum Triglycerides Reference Interval Normal <150 mg/dL Borderline high 150 - 199 mg/dL High 200 - 499 mg/dL Very High > or = 500 mg/dL Serum or plasma cholesterol in HDL measurement (mass/volume)on 01-13-2022 Cholesterol in HDL [Mass/Vol] 44 mg/dL [facility] Work Phone: Comment on above: The drugs N-Acetylcy steine and Metamizole may falsely depress this assay. Reference Range HDL <40 mg/dL Low HDL Cholesterol HDL >or= 60 mg/dL High HDL Cholesterol Serum or plasma cholesterol in VLDL measurement (mass/volume)on 01-13-2022 Cholesterol in VLDL [Mass/Vol] 24 mg/dL 5-40 [facility] Work Phone: Serum or plasma low density lipoprotein (LDL) cholesterol measurement (mass/volume)on 01-13-2022 Cholesterol in LDL [Mass/Vol] 49 mg/dL 0-130 [facility] Work Phone: Absolute lymphocyte counton 11-12-2021 Lymphocytes Auto (Unsp spec) [#/Vol] 1.48 10*3/uL 0.83-4.51 [facility] Work Phone: Basophil percentageon 2021 Basophils/100 WBC (Bld) 0.5 % 0-1 [facility] Work Phone: Chloride [Moles/Vol] 108 mmol/L 98-107 [facility] [place] Work Phone: Eosinophils/100 WBC (Bld) 1.4 % 0-5 [facility] Work Phone: Glucose [Mass/Vol] 105 mg/dL 74-106 [facility] Work Phone: Comment on above: Fasting Glucose resu lt from 100 to 125 mg/dL suggests IMPAIRED HOMEOSTASIS per A.D.A. criteria. Neutrophils (Bld) [#/Vol] 3.5 10*3/uL 2.0-7.7 [facility] Work Phone: Neutrophils/100 WBC (Bld) 61.7 % 47-70 [facility] Work Phone: Potassium [Moles/Vol] 3.8 mmol/L 3.5-5.1 [facility] Work Phone: Sodium [Moles/Vol] 139 mmol/L 136-145 [facility] Work Phone: WBC (Bld) [#/Vol] 5.7 10*3/uL 4.4-11.0 [facility] Work Phone: Blood erythrocytes count (nu mber/volume)on 11-12-2021 RBC (Bld) [#/Vol] 4.44 10*6/uL 4.2-5.4 [facility] Work Phone: Blood hemoglobin measurement (mass/volume)on 11-12-2021 Hemoglobin (Bld) [Mass/Vol] 13.7 g/dL 12.0-15.0 [facility] Work Phone: Blood lymphocytes/100 leukoc yteson 11-12-2021 Lymphocytes/100 WBC (Bld) 26.0 % 19-41 [facility] Work Phone: Blood monocytes/100 leukocyt eson 11-12-2021 Monocytes/100 WBC (Bld) 10.0 % 0-10 [facility] Work Phone: Blood platelet mean volumeon 11-12-2021 Platelet mean volume (Bld) [Entitic vol] 10.2 fL 6.2-12.0 [facility] Work Phone: Determination of erythrocyte mean corpuscular volume (MCV)on 11-12-2021 MCV (RBC) [Entitic vol] 89.4 fL 81-99 [facility] Work Phone: Hematocrit Auto (Bld) [Volum e fraction]on 11-12-2021 Hematocrit (Bld) [Volume fraction] 39.7 % 37-47 [facility] Work Phone: Laboratory - Chemistry and C hemistry - challengeon 11-12-2021 CO2 [Moles/Vol] 29.0 mmol/L 21.0-32.0 [facility] Work Phone: Urea nitrogen/Creatinine [Mass ratio] 16.9 mg/mg 10-20 [facility] Work Phone: Laboratory - Hematology and Cell countson 11-12-2021 Erythrocyte distribution width (RBC) [Entitic vol] 41.8 fL 35.1-43.9 [facility] Work Phone: Erythrocyte distribution width (RBC) [Ratio] 12.8 % 11.6-14.6 [facility] Work Phone: Immature granulocytes/100 WBC (Bld) 0.400 % 0.0-0.9 [facility] Work Phone: Comment on above: IG% - Immature Granu locytes (promyelocytes, myelocytes and metamyelocytes) > 1% indicates that a LEFT SHIFT is Present. MCH (RBC) [Entitic mass] 30.9 pg 27.0-32.0 [facility] Work Phone: Nucleated RBC/100 WBC (Bld) [Ratio] 0 % 0-5 [facility] Work Phone: MCHC Auto (RBC) [Mass/Vol]on 11-12-2021 MCHC (RBC) [Mass/Vol] 34.5 g/dL 32-36 [facility] Work Phone: No Panel Informationon 11-12 Estimated GFR (MDRD) Amer 101 mL/min >60 [facility] Work Phone: Comment on above: GFR Calc Estimated GFR (MDRD) Non-Af Amer 84 mL/min >60 [facility] Work Phone: Comment on above: Non- GFR Calc Platelets bldon 11-12-2021 Platelets (Bld) [#/Vol] 194 10*3/uL 150-450 [facility] Work Phone: Serum or plasma calcium madi urement (mass/volume)on 11-12-2021 Calcium [Mass/Vol] 9.5 mg/dL 8.5-10.1 [facility] Work Phone: Serum or plasma creatinine m easurement (mass/volume)on 11-12-2021 Creatinine [Mass/Vol] 0.71 mg/dL 0.55-1.02 [facility] Work Phone: Comment on above: The validity of the calculated GFR & GFRAA in patients over 70 years has not been determined. Clinical correlation is essential. Serum or plasma urea nitroge n measurement (mass/volume)on 11-12-2021 Urea nitrogen [Mass/Vol] 12 mg/dL 7-18 [facility] Work Phone: Thin prep Papanicolaou smear with manual screeningon 11-12-2021 Thin prep Papanicolaou smear with manual screening 2 5-15 [facility] Work Phone: XR SPINE CERVICAL 1 VIEWon [...] Date: 07/04/2019 10:22:47 AM Ordering Provider:Dc Bush [facility] ([place]) .GFRon 06-09-2019 GFR >60 Normal [facility] ([place]) Comment on above: Result Comment: GFR Population [...] #### C BC, DIFF, MORPH, BMP, GFR ####[place] [address] GFR Non- >60 Normal [facility] ([place]) Comment on above: Result Comment: GFR Population [...] #### C BC, DIFF, MORPH, BMP, GFR ####[place] [address] .Manual Diffon 06-09-2019 Basophil %, Manual 1.0 % Normal 0.0-2.5 [facility] ([place]) Comment on above: Performed By: #### C BC, DIFF, MORPH, BMP, GFR ####[place] [address] Basophil, Abs Manual 0.08 10 3/mcL Normal 0.00-0.27 [facility] ([place]) Comment on above: Performed By: #### C BC, DIFF, MORPH, BMP, GFR ####[place] [address] Cells Counted 100 Normal [facility] ([place]) Comment on above: Performed By: #### C BC, DIFF, MORPH, BMP, GFR ####[place] [address] Eosinophil %, Manual 2.0 % Normal 0.0-6.0 [facility] ([place]) Comment on above: Performed By: #### C BC, DIFF, MORPH, BMP, GFR ####[place] [address] Eosinophil, Abs Manual 0.16 10 3/mcL Normal 0.00-0.65 [facility] ([place]) Comment on above: Performed By: #### C BC, DIFF, MORPH, BMP, GFR ####[address] [address] Lymphocyte %, Manual 9.0 % Low 20.0-40.0 [facility] ([place]) Comment on above: Performed By: #### C BC, DIFF, MORPH, BMP, GFR ####[address] [address] Lymphocyte, Abs Manual 0.72 10 3/mcL Low 0.90-4.32 [facility] ([place]) Comment on above: Performed By: #### C BC, DIFF, MORPH, BMP, GFR ####[place] [address] Monocyte %, Manual 6.0 % Normal 2.0-13.0 [facility] ([place]) Comment on above: Performed By: #### C BC, DIFF, MORPH, BMP, GFR ####[place] [address] Monocyte, Abs Manual 0.48 10 3/mcL Normal 0.09-1.40 [facility] ([place]) Comment on above: Performed By: #### C BC, DIFF, MORPH, BMP, GFR ####[place] [address] Myelocyte 1.0 % Normal [facility] ([place]) Comment on above: Performed By: #### C BC, DIFF, MORPH, BMP, GFR ####[place] [address] Neutrophil %, Manual 81.0 % High 50.0-75.0 [facility] ([place]) Comment on above: Performed By: #### C BC, DIFF, MORPH, BMP, GFR ####[address] [address] Neutrophil, Abs Manual 6.48 10 3/mcL Normal 2.25-8.10 [facility] ([place]) Comment on above: Performed By: #### C BC, DIFF, MORPH, BMP, GFR ####[place] [address] .Morphon 06-09-2019 Platelets (Bld) [#/Vol] Normal Normal [facility] ([place]) Comment on above: Performed By: #### C BC, DIFF, MORPH, BMP, GFR ####[address] [address] Polychrom Slight Normal [facility] ([place]) Comment on above: Performed By: #### C BC, DIFF, MORPH, BMP, GFR ####[place] [address] BMPon 06-09-2019 Creatinine [Mass/Vol] 0.75 mg/dL Normal 0.50-1.20 [facility] ([place]) Comment on above: Performed By: #### C BC, DIFF, MORPH, BMP, GFR ####[place] [address] Urea nitrogen/Creatinine [Mass ratio] 18.7 ratio Normal 10.0-22.0 [facility] ([place]) Comment on above: Performed By: #### C BC, DIFF, MORPH, BMP, GFR ####[place] [address] Calcium [Mass/Vol] 8.2 mg/dL Low 8.4-10.1 [facility] ([place]) Comment on above: Performed By: #### C BC, DIFF, MORPH, BMP, GFR ####[place] [address] Chloride [Moles/Vol] 106 mmol/L Normal 98-110 [facility] ([place]) Comment on above: Performed By: #### C BC, DIFF, MORPH, BMP, GFR ####[place] [address] CO2 [Moles/Vol] 18 mmol/L Low 22-32 [facility] ([place]) Comment on above: Performed By: #### C BC, DIFF, MORPH, BMP, GFR ####[place] [address] Electrolyte Balance 16.0 mEq/L High 4.0-15.0 [facility] ([place]) Comment on above: Performed By: #### C BC, DIFF, MORPH, BMP, GFR ####[address] [address] Glucose [Mass/Vol] 109 mg/dL Normal 82-115 [facility] ([place]) Comment on above: Performed By: #### C BC, DIFF, MORPH, BMP, GFR ####[address] [address] Potassium [Moles/Vol] 3.8 mmol/L Normal 3.5-5.0 [facility] ([place]) Comment on above: Performed By: #### C BC, DIFF, MORPH, BMP, GFR ####[address] [address] Sodium [Moles/Vol] 140 mmol/L Normal 136-145 [facility] ([place]) Comment on above: Performed By: #### C BC, DIFF, MORPH, BMP, GFR ####[address] [address] Urea nitrogen [Mass/Vol] 14.0 mg/dL Normal 8.0-22.0 [facility] ([place]) Comment on above: Performed By: #### C BC, DIFF, MORPH, BMP, GFR ####[address] [address] CBCon 06-09-2019 Platelet mean volume (Bld) [Entitic vol] 8.6 fL Normal 6.6-10.5 [facility] ([place]) Comment on above: Performed By: #### C BC, DIFF, MORPH, BMP, GFR ####[address] [address] Platelets (Bld) [#/Vol] 229 10 3/mcL Normal 150-450 [facility] ([place]) Comment on above: Performed By: #### C BC, DIFF, MORPH, BMP, GFR ####[address] [address] WBC (Bld) [#/Vol] 8.00 10 3/mcL Normal 4.50-10.80 [facility] ([place]) Comment on above: Performed By: #### C BC, DIFF, MORPH, BMP, GFR ####[address] [address] Erythrocyte distribution width (RBC) [Ratio] 13.8 % Normal 11.5-15.5 [facility] ([place]) Comment on above: Performed By: #### C BC, DIFF, MORPH, BMP, GFR ####[place] [address] Hematocrit (Bld) [Volume fraction] 26.6 % Low 34.0-46.0 [facility] ([place]) Comment on above: Performed By: #### C BC, DIFF, MORPH, BMP, GFR ####[place] [address] Hemoglobin (Bld) [Mass/Vol] 9.1 G/dL Low 12.0-16.0 [facility] ([place]) Comment on above: Performed By: #### C BC, DIFF, MORPH, BMP, GFR ####[place] [address] MCH (RBC) [Entitic mass] 30.1 pg Normal 27.0-33.0 [facility] ([place]) Comment on above: Performed By: #### C BC, DIFF, MORPH, BMP, GFR ####[place] [address] MCHC (RBC) [Mass/Vol] 34.3 G/dL Normal 32.0-36.0 [facility] ([place]) Comment on above: Performed By: #### C BC, DIFF, MORPH, BMP, GFR ####[place] [address] MCV (RBC) [Entitic vol] 87.9 fL Normal 80.0-99.0 [facility] ([place]) Comment on above: Performed By: #### C BC, DIFF, MORPH, BMP, GFR ####[place] [address] RBC (Bld) [#/Vol] 3.03 10 6/mcL Low 4.10-5.30 [facility] ([place]) Comment on above: Performed By: #### C BC, DIFF, MORPH, BMP, GFR ####[place] [address] XR CHEST 2 VIEWSon 9 XR CHEST [...] AM Sign Date: 06/09/2019 7:22:18 AM Normal [facility] ([place]) .GFRon 06-08-2019 GFR >60 Normal [facility] ([place]) Comment on above: Result Comment: GFR Population [...] meters Performed By: #### B MP, GFR ####[place] [address] GFR Non- >60 Normal [facility] ([place]) Comment on above: Result Comment: GFR Population [...] meters Performed By: #### B MP, GFR ####[address] [address] BMPon 06-08-2019 Creatinine [Mass/Vol] 0.60 mg/dL Normal 0.50-1.20 [facility] ([place]) Comment on above: Performed By: #### B MP, GFR ####[place] [address] Urea nitrogen/Creatinine [Mass ratio] 21.7 ratio Normal 10.0-22.0 [facility] ([place]) Comment on above: Performed By: #### B MP, GFR ####[place] [address] Calcium [Mass/Vol] 7.9 mg/dL Low 8.4-10.1 [facility] ([place]) Comment on above: Performed By: #### B MP, GFR ####[place] [id number] Chloride [Moles/Vol] 107 mmol/L Normal 98-110 [facility] ([place]) Comment on above: Performed By: #### B MP, GFR ####[address] [address] CO2 [Moles/Vol] 28 mmol/L Normal 22-32 [facility] ([place]) Comment on above: Performed By: #### B MP, GFR ####[place] [id number] Electrolyte Balance 8.0 mEq/L Normal 4.0-15.0 [facility] ([place]) Comment on above: Performed By: #### B MP, GFR ####[place] [id number] Glucose [Mass/Vol] 115 mg/dL Normal 82-115 [facility] ([place]) Comment on above: Performed By: #### B MP, GFR ####[address] [address] Potassium [Moles/Vol] 3.7 mmol/L Normal 3.5-5.0 [facility] ([place]) Comment on above: Performed By: #### B MP, GFR ####[place] [id number] [address] [place] [id number] Sodium [Moles/Vol] 143 mmol/L Normal 136-145 [facility] ([place]) Comment on above: Performed By: #### B MP, GFR ####[address] [address] Urea nitrogen [Mass/Vol] 13.0 mg/dL Normal 8.0-22.0 [facility] ([place]) Comment on above: Performed By: #### B MP, GFR ####[address] [address] XR CHEST 2 VIEWSon 9 XR CHEST [...] Daryl Dominguez MD Preliminary Report By: Daryl Dominguze MD Electronically Signed By: Daryl Dominguez MD Dictated Date: 06/08/2019 6:28:34 AM Prelim Date: 06/08/2019 6:28:34 AM Sign Date: 06/08/2019 6:29:24 AM Normal [facility] ([place]) .Auto Diffon 06-07-2019 Ammonia (P) [Mass/Vol] 0.40 10 3/mcL Normal 0.09-1.40 [facility] ([place]) Comment on above: Performed By: #### C BC, ADIFF, ANEU, CMP, GFR ####[address] [address] Basophils (Bld) [#/Vol] 0.00 10 3/mcL Normal 0.00-0.27 [facility] ([place]) Comment on above: Performed By: #### C BC, ADIFF, ANEU, CMP, GFR ####[address] [address] Basophils/100 WBC (Bld) 0.4 % Normal 0.0-2.5 [facility] ([place]) Comment on above: Performed By: #### C BC, ADIFF, ANEU, CMP, GFR ####[address] [address] Eosinophils (Bld) [#/Vol] 0.30 10 3/mcL Normal 0.00-0.65 [facility] ([place]) Comment on above: Performed By: #### C BC, ADIFF, ANEU, CMP, GFR ####[address] [address] Eosinophils/100 WBC (Bld) 6.6 % High 0.0-6.0 [facility] ([place]) Comment on above: Performed By: #### C BC, ADIFF, ANEU, CMP, GFR ####[address] [address] Lymphocytes (Bld) [#/Vol] 1.00 10 3/mcL Normal 0.90-4.32 [facility] ([place]) Comment on above: Performed By: #### C BC, ADIFF, ANEU, CMP, GFR ####[address] [address] Lymphocytes/100 WBC (Bld) 19.0 % Low 20.0-40.0 [facility] ([place]) Comment on above: Performed By: #### C BC, ADIFF, ANEU, CMP, GFR ####[address] [address] Monocytes/100 WBC (Bld) 7.4 % Normal 2.0-13.0 [facility] ([place]) Comment on above: Performed By: #### C BC, ADIFF, ANEU, CMP, GFR ####[address] [address] Neutrophils/100 WBC (Bld) 66.6 % Normal 50.0-75.0 [facility] ([place]) Comment on above: Performed By: #### C BC, ADIFF, ANEU, CMP, GFR ####[address] [address] Ammonia (P) [Mass/Vol] 0.50 10 3/mcL Normal 0.09-1.40 [facility] ([place]) Comment on above: Performed By: #### C BC, ADIFF, ANEU, BMP, GFR ####[address] [address] Basophils (Bld) [#/Vol] 0.00 10 3/mcL Normal 0.00-0.27 [facility] ([place]) Comment on above: Performed By: #### C BC, ADIFF, ANEU, BMP, GFR ####[address] [address] Basophils/100 WBC (Bld) 0.7 % Normal 0.0-2.5 [facility] ([place]) Comment on above: Performed By: #### C BC, ADIFF, ANEU, BMP, GFR ####[address] [address] Eosinophils (Bld) [#/Vol] 0.10 10 3/mcL Normal 0.00-0.65 [facility] ([place]) Comment on above: Performed By: #### C BC, ADIFF, ANEU, BMP, GFR ####[address] [address] Eosinophils/100 WBC (Bld) 1.8 % Normal 0.0-6.0 [facility] ([place]) Comment on above: Performed By: #### C BC, ADIFF, ANEU, BMP, GFR ####[address] [address] Lymphocytes (Bld) [#/Vol] 2.10 10 3/mcL Normal 0.90-4.32 [facility] ([place]) Comment on above: Performed By: #### C BC, ADIFF, ANEU, BMP, GFR ####[address] [address] Lymphocytes/100 WBC (Bld) 32.8 % Normal 20.0-40.0 [facility] ([place]) Comment on above: Performed By: #### C BC, ADIFF, ANEU, BMP, GFR ####[address] [address] Monocytes/100 WBC (Bld) 7.1 % Normal 2.0-13.0 [facility] ([place]) Comment on above: Performed By: #### C BC, ADIFF, ANEU, BMP, GFR ####[address] [address] Neutrophils/100 WBC (Bld) 57.6 % Normal 50.0-75.0 [facility] ([place]) Comment on above: Performed By: #### C BC, ADIFF, ANEU, BMP, GFR ####[address] [address] Ammonia (P) [Mass/Vol] 0.60 10 3/mcL Normal 0.09-1.40 [facility] ([place]) Comment on above: Performed By: #### C BC, ADIFF, ANEU #### [place] [address] #### BMP, GFR #### [address] [address] Basophils (Bld) [#/Vol] 0.00 10 3/mcL Normal 0.00-0.27 [facility] ([place]) Comment on above: Performed By: #### C BC ADIFF, ANEU #### [place] [address] #### BMP, GFR #### [address] [address] Basophils/100 WBC (Bld) 0.5 % Normal 0.0-2.5 [facility] ([place]) Comment on above: Performed By: #### C BC, ADIFF, ANEU #### [address] [address] #### BMP, GFR #### [address] [address] Eosinophils (Bld) [#/Vol] 0.10 10 3/mcL Normal 0.00-0.65 [facility] ([place]) Comment on above: Performed By: #### C BC, ADIFF, ANEU #### [address] [address] #### BMP, GFR #### [address] [address] Eosinophils/100 WBC (Bld) 2.2 % Normal 0.0-6.0 [facility] ([place]) Comment on above: Performed By: #### C BC, ADIFF, ANEU #### [place] [address] #### BMP, GFR #### [address] [address] Lymphocytes (Bld) [#/Vol] 0.80 10 3/mcL Low 0.90-4.32 [facility] ([place]) Comment on above: Performed By: #### C BC, BRYANIFF, ANEU #### [place] [address] #### BMP, GFR #### [address] [address] Lymphocytes/100 WBC (Bld) 12.3 % Low 20.0-40.0 [facility] ([place]) Comment on above: Performed By: #### C BC, BRYANIFF, ANEU #### [place] [address] #### BMP, GFR #### [address] [address] Monocytes/100 WBC (Bld) 9.5 % Normal 2.0-13.0 [facility] ([place]) Comment on above: Performed By: #### C BC, ADIFF, ANEU #### [place] [address] #### BMP, GFR #### [address] [address] Neutrophils/100 WBC (Bld) 75.5 % High 50.0-75.0 [facility] ([place]) Comment on above: Performed By: #### C BC, ADIFF, ANEU #### [place] [address] [place], [place] [address] #### BMP, GFR #### [facility] [address] [place] [address] .GFRon 06-07-2019 GFR >60 Normal [facility] ([place]) Comment on above: Result Comment: GFR Population [...] #### C BC, ADIFF, ANEU, CMP, GFR ####[place] [id number] [place] [address] GFR Non- >60 Normal [facility] ([place]) Comment on above: Result Comment: GFR Population [...] #### C BC, ADIFF, ANEU, CMP, GFR ####[place] [id number] [place] [address] GFR >60 Normal [facility] ([place]) Comment on above: Result Comment: GFR Population [...] #### C BC, ADIFF, ANEU, BMP, GFR ####[address] [address] GFR Non- >60 Normal [facility] ([place]) Comment on above: Result Comment: GFR Population [...] #### C BC, ADIFF, ANEU, BMP, GFR ####[address] [address] GFR Non- >60 Normal [facility] ([place]) Comment on above: Result Comment: GFR Population [...] #### C BC, ADIFF, ANEU, BMP, GFR ####[address] [address] GFR >60 Normal [facility] ([place]) Comment on above: Result Comment: GFR Population [...] #### C BC, ADIFF, ANEU, BMP, GFR ####[place] [address] .NEUABSon 06-07-2019 Neutrophils (Bld) [#/Vol] 3.40 10 3/mcL Normal 2.25-8.10 [facility] ([place]) Comment on above: Performed By: #### C BC, ADIFF, ANEU, CMP, GFR ####[address] [address] Neutrophils (Bld) [#/Vol] 3.80 10 3/mcL Normal 2.25-8.10 [facility] ([place]) Comment on above: Performed By: #### C BC, ADIFF, ANEU, BMP, GFR ####[address] [address] Neutrophils (Bld) [#/Vol] 5.00 10 3/mcL Normal 2.25-8.10 [facility] ([place]) Comment on above: Performed By: #### Lio BC, ADIFF, ANEU #### [address] [place], [place] [address] #### BMP, GFR #### [address] [address] BMPon 06-07-2019 Creatinine [Mass/Vol] 0.66 mg/dL Normal 0.50-1.20 [facility] ([place]) Comment on above: Performed By: #### C BC, ADIFF, ANEU, BMP, GFR ####[place] [address] Urea nitrogen/Creatinine [Mass ratio] 16.7 ratio Normal 10.0-22.0 [facility] ([place]) Comment on above: Performed By: #### C BC, ADIFF, ANEU, BMP, GFR ####[place] [address] Calcium [Mass/Vol] 7.8 mg/dL Low 8.4-10.1 [facility] ([place]) Comment on above: Performed By: #### C BC, ADIFF, ANEU, BMP, GFR ####[place] [address] Chloride [Moles/Vol] 106 mmol/L Normal 98-110 [facility] ([place]) Comment on above: Performed By: #### C BC, ADIFF, ANEU, BMP, GFR ####[place] [id number] CO2 [Moles/Vol] 26 mmol/L Normal 22-32 [facility] ([place]) Comment on above: Performed By: #### C BC, ADIFF, ANEU, BMP, GFR ####[address] [address] Electrolyte Balance 9.0 mEq/L Normal 4.0-15.0 [facility] ([place]) Comment on above: Performed By: #### C BC, ADIFF, ANEU, BMP, GFR ####[address] [address] Glucose [Mass/Vol] 101 mg/dL Normal 82-115 [facility] ([place]) Comment on above: Performed By: #### C BC, ADIFF, ANEU, BMP, GFR ####[address] [address] Potassium [Moles/Vol] 3.6 mmol/L Normal 3.5-5.0 [facility] ([place]) Comment on above: Performed By: #### C BC, ADIFF, ANEU, BMP, GFR ####[address] [address] Sodium [Moles/Vol] 141 mmol/L Normal 136-145 [facility] ([place]) Comment on above: Performed By: #### C BC, ADIFF, ANEU, BMP, GFR ####[address] [address] Urea nitrogen [Mass/Vol] 11.0 mg/dL Normal 8.0-22.0 [facility] ([place]) Comment on above: Performed By: #### C BC, ADIFF, ANEU, BMP, GFR ####[place] [address] Calcium [Mass/Vol] 8.4 mg/dL Normal 8.4-10.1 [facility] ([place]) Comment on above: Performed By: #### C BC, ADIFF, ANEU, BMP, GFR ####[place] [address] Chloride [Moles/Vol] 106 mmol/L Normal 98-110 [facility] ([place]) Comment on above: Performed By: #### C BC, ADIFF, ANEU, BMP, GFR ####[place] [id number] CO2 [Moles/Vol] 25 mmol/L Normal 22-32 [facility] ([place]) Comment on above: Performed By: #### C BC, ADIFF, ANEU, BMP, GFR ####[address] [address] Creatinine [Mass/Vol] 0.73 mg/dL Normal 0.50-1.20 [facility] ([place]) Comment on above: Performed By: #### C BC, ADIFF, ANEU, BMP, GFR ####[place] [address] Electrolyte Balance 9.0 mEq/L Normal 4.0-15.0 [facility] ([place]) Comment on above: Performed By: #### C BC, ADIFF, ANEU, BMP, GFR ####[address] [address] Glucose [Mass/Vol] 230 mg/dL High 82-115 [facility] ([place]) Comment on above: Performed By: #### C BC, ADIFF, ANEU, BMP, GFR ####[address] [address] Potassium [Moles/Vol] 3.8 mmol/L Normal 3.5-5.0 [facility] ([place]) Comment on above: Performed By: #### C BC, ADIFF, ANEU, BMP, GFR ####[place] [address] Sodium [Moles/Vol] 140 mmol/L Normal 136-145 [facility] ([place]) Comment on above: Performed By: #### C BC, ADIFF, ANEU, BMP, GFR ####[place] [address] Urea nitrogen [Mass/Vol] 16.0 mg/dL Normal 8.0-22.0 [facility] ([place]) Comment on above: Performed By: #### C BC, ADIFF, ANEU, BMP, GFR ####[address] [address] Urea nitrogen/Creatinine [Mass ratio] 21.9 ratio Normal 10.0-22.0 [facility] ([place]) Comment on above: Performed By: #### C BC, ADIFF, ANEU, BMP, GFR ####[address] [address] CBCon 06-07-2019 Erythrocyte distribution width (RBC) [Ratio] 12.5 % Normal 11.5-15.5 [facility] ([place]) Comment on above: Performed By: #### C BC, ADIFF, ANEU, CMP, GFR ####[address] [address] Hematocrit (Bld) [Volume fraction] 35.3 % Low 40.0-52.0 [facility] ([place]) Comment on above: Performed By: #### C BC, ADIFF, ANEU, CMP, GFR ####[address] [address] Hemoglobin (Bld) [Mass/Vol] 12.0 G/dL Low 13.0-17.5 [facility] ([place]) Comment on above: Performed By: #### C BC, ADIFF, ANEU, CMP, GFR ####[place] [id number] MCH (RBC) [Entitic mass] 32.0 pg Normal 27.0-33.0 [facility] ([place]) Comment on above: Performed By: #### C BC, ADIFF, ANEU, CMP, GFR ####[place] [address] MCHC (RBC) [Mass/Vol] 34.1 G/dL Normal 32.0-36.0 [facility] ([place]) Comment on above: Performed By: #### C BC, ADIFF, ANEU, CMP, GFR ####[place] [address] MCV (RBC) [Entitic vol] 94.1 fL Normal 81.0-100.0 [facility] ([place]) Comment on above: Performed By: #### C BC, ADIFF, ANEU, CMP, GFR ####[place] [address] Platelet mean volume (Bld) [Entitic vol] 6.9 fL Normal 6.4-10.5 [facility] ([place]) Comment on above: Performed By: #### C BC, ADIFF, ANEU, CMP, GFR ####[place] [id number] Platelets (Bld) [#/Vol] 109 10 3/mcL Low 150-450 [facility] ([place]) Comment on above: Performed By: #### C BC, ADIFF, ANEU, CMP, GFR ####[place] [id number] RBC (Bld) [#/Vol] 3.76 10 6/mcL Low 4.50-6.00 [facility] ([place]) Comment on above: Performed By: #### C BC, ADIFF, ANEU, CMP, GFR ####[place] [id number] WBC (Bld) [#/Vol] 5.00 10 3/mcL Normal 4.50-10.80 [facility] ([place]) Comment on above: Performed By: #### C BC, ADIFF, ANEU, CMP, GFR ####[place] [address] Erythrocyte distribution width (RBC) [Ratio] 13.6 % Normal 11.5-15.5 [facility] ([place]) Comment on above: Performed By: #### C BC, ADIFF, ANEU, BMP, GFR ####[place] [address] Hematocrit (Bld) [Volume fraction] 28.1 % Low 34.0-46.0 [facility] ([place]) Comment on above: Performed By: #### C BC, ADIFF, ANEU, BMP, GFR ####[place] [address] Hemoglobin (Bld) [Mass/Vol] 9.4 G/dL Low 12.0-16.0 [facility] ([place]) Comment on above: Performed By: #### C BC, ADIFF, ANEU, BMP, GFR ####[place] [address] MCH (RBC) [Entitic mass] 32.4 pg Normal 27.0-33.0 [facility] ([place]) Comment on above: Performed By: #### C BC, ADIFF, ANEU, BMP, GFR ####[place] [address] MCHC (RBC) [Mass/Vol] 33.5 G/dL Normal 32.0-36.0 [facility] ([place]) Comment on above: Performed By: #### C BC, ADIFF, ANEU, BMP, GFR ####[place] [address] MCV (RBC) [Entitic vol] 96.7 fL Normal 80.0-99.0 [facility] ([place]) Comment on above: Performed By: #### C BC, ADIFF, ANEU, BMP, GFR ####[address] [address] Platelet mean volume (Bld) [Entitic vol] 7.5 fL Normal 6.6-10.5 [facility] ([place]) Comment on above: Performed By: #### C BC, ADIFF, ANEU, BMP, GFR ####[address] [address] Platelets (Bld) [#/Vol] 257 10 3/mcL Normal 150-450 [facility] ([place]) Comment on above: Performed By: #### C BC, ADIFF, ANEU, BMP, GFR ####[address] [address] RBC (Bld) [#/Vol] 2.90 10 6/mcL Low 4.10-5.30 [facility] ([place]) Comment on above: Performed By: #### C BC, ADIFF, ANEU, BMP, GFR ####[address] [address] WBC (Bld) [#/Vol] 6.50 10 3/mcL Normal 4.50-10.80 [facility] ([place]) Comment on above: Performed By: #### C BC, ADIFF, ANEU, BMP, GFR ####[address] [address] Erythrocyte distribution width (RBC) [Ratio] 13.8 % Normal 11.5-15.5 [facility] ([place]) Comment on above: Performed By: #### C BC, ADIFF, ANEU #### [address] [address] #### BMP, GFR #### [address] [address] Hematocrit (Bld) [Volume fraction] 27.4 % Low 34.0-46.0 [facility] ([place]) Comment on above: Performed By: #### C BC, ADIFF, ANEU #### [address] [address] #### BMP, GFR #### [address] [address] Hemoglobin (Bld) [Mass/Vol] 9.4 G/dL Low 12.0-16.0 [facility] ([place]) Comment on above: Performed By: #### C BC, ADIFF, ANEU #### [address] [address] #### BMP, GFR #### [address] [address] MCH (RBC) [Entitic mass] 30.3 pg Normal 27.0-33.0 [facility] ([place]) Comment on above: Performed By: #### C BC, ADIFF, ANEU #### [place] [address] #### BMP, GFR #### [address] [address] MCHC (RBC) [Mass/Vol] 34.4 G/dL Normal 32.0-36.0 [facility] ([place]) Comment on above: Performed By: #### C BC, ADIFF, ANEU #### [place] [address] #### BMP, GFR #### [address] [address] MCV (RBC) [Entitic vol] 88.2 fL Normal 80.0-99.0 [facility] ([place]) Comment on above: Performed By: #### C BC, ADIFF, ANEU #### [place] [address] #### BMP, GFR #### [address] [address] Platelet mean volume (Bld) [Entitic vol] 8.1 fL Normal 6.6-10.5 [facility] ([place]) Comment on above: Performed By: #### C BC, ADIFF, ANEU #### [place] [address] #### BMP, GFR #### [address] [address] Platelets (Bld) [#/Vol] 188 10 3/mcL Normal 150-450 [facility] ([place]) Comment on above: Performed By: #### C BC, ADIFF, ANEU #### [address] [address] #### BMP, GFR #### [address] [address] RBC (Bld) [#/Vol] 3.11 10 6/mcL Low 4.10-5.30 [facility] ([place]) Comment on above: Performed By: #### C BC, ADIFF, ANEU #### [address] [address] #### BMP, GFR #### [place] [address] WBC (Bld) [#/Vol] 6.70 10 3/mcL Normal 4.50-10.80 [facility] ([place]) Comment on above: Performed By: #### C BC, ADIFF, ANEU #### [address] [address] #### BMP, GFR #### [place] [address] CMPon 06-07-2019 Albumin/Globulin [Mass ratio] 0.8 {ratio} Low 0.9-1.6 [facility] ([place]) Comment on above: Performed By: #### C BC, ADIFF, ANEU, CMP, GFR ####[place] [address] ALP [Catalytic activity/Vol] 47 U/L Normal 38-126 [facility] ([place]) Comment on above: Performed By: #### C BC, ADIFF, ANEU, CMP, GFR ####[place] [address] Bili Total 0.5 mg/dL Normal 0.2-1.2 [facility] ([place]) Comment on above: Performed By: #### C BC, ADIFF, ANEU, CMP, GFR ####[address] [place] [address] Creatinine [Mass/Vol] 0.66 mg/dL Normal 0.60-1.40 [facility] ([place]) Comment on above: Performed By: #### C BC, ADIFF, ANEU, CMP, GFR ####[address] [address] Globulin (S) [Mass/Vol] 2.7 G/dL Normal 1.5-3.8 [facility] ([place]) Comment on above: Performed By: #### C BC, ADIFF, ANEU, CMP, GFR ####[address] [address] Protein [Mass/Vol] 4.8 G/dL Low 6.0-8.5 [facility] ([place]) Comment on above: Performed By: #### C BC, ADIFF, ANEU, CMP, GFR ####[address] [address] Urea nitrogen/Creatinine [Mass ratio] 4.5 ratio Low 10.0-22.0 [facility] ([place]) Comment on above: Performed By: #### C BC, ADIFF, ANEU, CMP, GFR ####[address] [address] Albumin [Mass/Vol] 2.1 G/dL Low 3.2-4.8 [facility] ([place]) Comment on above: Performed By: #### C BC, ADIFF, ANEU, CMP, GFR ####[address] [address] ALT [Catalytic activity/Vol] 16 U/L Normal 12-55 [facility] ([place]) Comment on above: Performed By: #### C BC, ADIFF, ANEU, CMP, GFR ####[address] [address] AST [Catalytic activity/Vol] 11 U/L Normal 8-34 [facility] ([place]) Comment on above: Performed By: #### C BC, ADIFF, ANEU, CMP, GFR ####[address] [address] Calcium [Mass/Vol] 7.8 mg/dL Low 8.4-10.1 [facility] ([place]) Comment on above: Performed By: #### C BC, ADIFF, ANEU, CMP, GFR ####[address] [address] Chloride [Moles/Vol] 113 mmol/L High 98-110 [facility] ([place]) Comment on above: Performed By: #### C BC, ADIFF, ANEU, CMP, GFR ####[address] [address] CO2 [Moles/Vol] 30 mmol/L Normal 22-32 [facility] ([place]) Comment on above: Performed By: #### C BC, ADIFF, ANEU, CMP, GFR ####[address] [address] Electrolyte Balance 5.0 mEq/L Normal 4.0-15.0 [facility] ([place]) Comment on above: Performed By: #### C BC, ADIFF, ANEU, CMP, GFR ####[address] [address] Glucose [Mass/Vol] 124 mg/dL High 70-110 [facility] ([place]) Comment on above: Performed By: #### C BC, ADIFF, ANEU, CMP, GFR ####[address] [address] Potassium [Moles/Vol] 3.7 mmol/L Normal 3.5-5.0 [facility] ([place]) Comment on above: Performed By: #### C BC, ADIFF, ANEU, CMP, GFR ####[address] [address] Sodium [Moles/Vol] 148 mmol/L High 136-145 [facility] ([place]) Comment on above: Performed By: #### C BC, ADIFF, ANEU, CMP, GFR ####[address] [address] Urea nitrogen [Mass/Vol] 3.0 mg/dL Low 8.0-22.0 [facility] ([place]) Comment on above: Performed By: #### C BC, ADIFF, ANEU, CMP, GFR ####[place] [id number] [place] [address] HHon 06-07-2019 Hematocrit (Bld) [Volume fraction] 27.4 % Low 34.0-46.0 [facility] ([place]) Comment on above: Performed By: #### H H ####[place] [id number] [place] [address] Hemoglobin (Bld) [Mass/Vol] 9.6 G/dL Low 12.0-16.0 [facility] ([place]) Comment on above: Performed By: #### H H ####[address] [address] XR CHEST 1 VIEWon 06-07-2019 XR CHEST [...] AM Sign Date: 06/07/2019 7:43:21 AM Normal [facility] ([place]) .Auto Diffon 06-06-2019 Ammonia (P) [Mass/Vol] 0.70 10 3/mcL Normal 0.09-1.40 [facility] ([place]) Comment on above: Performed By: #### C STEPHANIE KRISHNAMURTHY ANEU #### [address] [address] #### BMP, GFR #### [address] [address] Basophils (Bld) [#/Vol] 0.00 10 3/mcL Normal 0.00-0.27 [facility] ([place]) Comment on above: Performed By: #### C BCSTEPHANIE ANEU #### [address] [address] #### BMP, GFR #### [address] [address] Basophils/100 WBC (Bld) 0.4 % Normal 0.0-2.5 [facility] ([place]) Comment on above: Performed By: #### C BC, ADIFF, ANEU #### [address] [address] #### BMP, GFR #### [address] [address] Eosinophils (Bld) [#/Vol] 0.10 10 3/mcL Normal 0.00-0.65 [facility] ([place]) Comment on above: Performed By: #### C BC, ADIFF, ANEU #### [place] [address] #### BMP, GFR #### [address] [address] Eosinophils/100 WBC (Bld) 0.8 % Normal 0.0-6.0 [facility] ([place]) Comment on above: Performed By: #### C BC, ADIFF, ANEU #### [place] [address] #### BMP, GFR #### [address] [address] Lymphocytes (Bld) [#/Vol] 0.70 10 3/mcL Low 0.90-4.32 [facility] ([place]) Comment on above: Performed By: #### C BC, ADIFF, ANEU #### [place] [address] #### BMP, GFR #### [address] [address] Lymphocytes/100 WBC (Bld) 9.2 % Low 20.0-40.0 [facility] ([place]) Comment on above: Performed By: #### C BC, ADIFF, ANEU #### [place] [address] #### BMP, GFR #### [address] [address] Monocytes/100 WBC (Bld) 9.6 % Normal 2.0-13.0 [facility] ([place]) Comment on above: Performed By: #### C BC, ADIFF, ANEU #### [place] [address] [address] #### BMP, GFR #### [facility] [address] [place] [address] Neutrophils/100 WBC (Bld) 80.0 % High 50.0-75.0 [facility] ([place]) Comment on above: Performed By: #### C BC, ADIFF, ANEU #### [address] [address] #### BMP, GFR #### [facility] [address] [place] [address] .GFRon 06-06-2019 GFR Non- >60 Normal [facility] ([place]) Comment on above: Result Comment: GFR Population [...] #### C BC, ADIFF, ANEU #### [place] [address] [place], [place] [address] #### BMP, GFR #### [place] [address] [place] [address] GFR >60 Normal [facility] ([place]) Comment on above: Result Comment: GFR Population [...] Performed By: #### C BCBRYANIFF, ANEU #### [place] [address] #### BMP, GFR #### [address] [address] .NEUABSon 06-06-2019 Neutrophils (Bld) [#/Vol] 6.20 10 3/mcL Normal 2.25-8.10 [facility] ([place]) Comment on above: Performed By: #### C BCSTEPHANIE, ANEU #### [place] [address] #### BMP, GFR #### [place] [address] BMPon 06-06-2019 Calcium [Mass/Vol] 8.0 mg/dL Low 8.4-10.1 [facility] ([place]) Comment on above: Performed By: #### C BCBRYANIFF, ANEU #### [place] [address] #### BMP, GFR #### [place] [address] Chloride [Moles/Vol] 104 mmol/L Normal 98-110 [facility] ([place]) Comment on above: Performed By: #### C BC, ADIFF, ANEU #### [place] [address] #### BMP, GFR #### [address] [address] CO2 [Moles/Vol] 26 mmol/L Normal 22-32 [facility] ([place]) Comment on above: Performed By: #### C BC, ADIFF, ANEU #### [address] [address] #### BMP, GFR #### [address] [address] Creatinine [Mass/Vol] 0.66 mg/dL Normal 0.50-1.20 [facility] ([place]) Comment on above: Performed By: #### C BC, ADIFF, ANEU #### [place] [address] #### BMP, GFR #### [address] [address] Electrolyte Balance 10.0 mEq/L Normal 4.0-15.0 [facility] ([place]) Comment on above: Performed By: #### C BC, ADIFF, ANEU #### [place] [address] #### BMP, GFR #### [place] [address] Glucose [Mass/Vol] 104 mg/dL Normal 82-115 [facility] ([place]) Comment on above: Performed By: #### C BC, ADIFF, ANEU #### [place] [address] #### BMP, GFR #### [address] [address] Potassium [Moles/Vol] 3.2 mmol/L Low 3.5-5.0 [facility] ([place]) Comment on above: Performed By: #### C BC, ADIFF, ANEU #### [place] [address] #### BMP, GFR #### [address] [address] Sodium [Moles/Vol] 140 mmol/L Normal 136-145 [facility] ([place]) Comment on above: Performed By: #### C BC, ADIFF, ANEU #### [place] [address] #### BMP, GFR #### [place] [id number] Urea nitrogen [Mass/Vol] 10.0 mg/dL Normal 8.0-22.0 [facility] ([place]) Comment on above: Performed By: #### C BRYAN KRISHNAMURTHYIFF, ANEU #### [place] [address] #### BMP, GFR #### [address] [address] Urea nitrogen/Creatinine [Mass ratio] 15.2 ratio Normal 10.0-22.0 [facility] ([place]) Comment on above: Performed By: #### C BCBRYANIFF, ANEU #### [place] [address] #### BMP, GFR #### [place] [address] CBCon 06-06-2019 Erythrocyte distribution width (RBC) [Ratio] 13.6 % Normal 11.5-15.5 [facility] ([place]) Comment on above: Performed By: #### C STEPHANIE KRISHNAMURTHY, ANEU #### [place] [address] #### BMP, GFR #### [place] [address] Hematocrit (Bld) [Volume fraction] 27.0 % Low 34.0-46.0 [facility] ([place]) Comment on above: Performed By: #### C STEPHANIE KRISHNAMURTHY, ANEU #### [place] [address] #### BMP, GFR #### [place] [address] Hemoglobin (Bld) [Mass/Vol] 9.2 G/dL Low 12.0-16.0 [facility] ([place]) Comment on above: Performed By: #### C BRYAN KRISHNAMURTHYIFF, ANEU #### [place] [address] #### BMP, GFR #### [place] [address] MCH (RBC) [Entitic mass] 30.0 pg Normal 27.0-33.0 [facility] ([place]) Comment on above: Performed By: #### C BC, ADIFF, ANEU #### [address] [address] #### BMP, GFR #### [address] [address] MCHC (RBC) [Mass/Vol] 34.1 G/dL Normal 32.0-36.0 [facility] ([place]) Comment on above: Performed By: #### C BC, ADIFF, ANEU #### [place] [address] #### BMP, GFR #### [address] [address] MCV (RBC) [Entitic vol] 88.0 fL Normal 80.0-99.0 [facility] ([place]) Comment on above: Performed By: #### C BC, ADIFF, ANEU #### [place] [address] #### BMP, GFR #### [address] [address] Platelet mean volume (Bld) [Entitic vol] 8.2 fL Normal 6.6-10.5 [facility] ([place]) Comment on above: Performed By: #### C BC, ADIFF, ANEU #### [place] [address] #### BMP, GFR #### [address] [address] Platelets (Bld) [#/Vol] 155 10 3/mcL Normal 150-450 [facility] ([place]) Comment on above: Performed By: #### C BC, ADIFF, ANEU #### [place] [address] #### BMP, GFR #### [address] [address] RBC (Bld) [#/Vol] 3.07 10 6/mcL Low 4.10-5.30 [facility] ([place]) Comment on above: Performed By: #### C BC, ADIFF, ANEU #### [address] [address] #### BMP, GFR #### [address] [address] WBC (Bld) [#/Vol] 7.70 10 3/mcL Normal 4.50-10.80 [facility] ([place]) Comment on above: Performed By: #### C BCBRYANIFF, ANEU #### [address] [address] #### BMP, GFR #### [address] [address] XR CHEST 1 VIEWon 06-06-2019 XR CHEST [...] AM Sign Date: 06/06/2019 6:40:06 AM Normal [facility] ([place]) .Auto Diffon 06-05-2019 Ammonia (P) [Mass/Vol] 1.20 10 3/mcL Normal 0.09-1.40 [facility] ([place]) Comment on above: Performed By: #### C BRYAN KRISHNAMURTHYIFF, ANEU #### [address] [address] #### BMP, GFR #### [address] [address] Basophils (Bld) [#/Vol] 0.00 10 3/mcL Normal 0.00-0.27 [facility] ([place]) Comment on above: Performed By: #### C BC, ADIFF, ANEU #### [address] [address] #### BMP, GFR #### [address] [address] Basophils/100 WBC (Bld) 0.4 % Normal 0.0-2.5 [facility] ([place]) Comment on above: Performed By: #### C BC, ADIFF, ANEU #### [address] [address] #### BMP, GFR #### [address] [address] Eosinophils (Bld) [#/Vol] 0.10 10 3/mcL Normal 0.00-0.65 [facility] ([place]) Comment on above: Performed By: #### C BC, ADIFF, ANEU #### [place] [address] #### BMP, GFR #### [address] [address] Eosinophils/100 WBC (Bld) 0.6 % Normal 0.0-6.0 [facility] ([place]) Comment on above: Performed By: #### C BC, ADIFF, ANEU #### [place] [address] #### BMP, GFR #### [address] [address] Lymphocytes (Bld) [#/Vol] 1.10 10 3/mcL Normal 0.90-4.32 [facility] ([place]) Comment on above: Performed By: #### C BC, ADIFF, ANEU #### [address] [address] #### BMP, GFR #### [address] [address] Lymphocytes/100 WBC (Bld) 9.5 % Low 20.0-40.0 [facility] ([place]) Comment on above: Performed By: #### C BC, ADIFF, ANEU #### [place] [address] #### BMP, GFR #### [facility] [address] [place] [address] Monocytes/100 WBC (Bld) 9.9 % Normal 2.0-13.0 [facility] ([place]) Comment on above: Performed By: #### C BC, ADIFF, ANEU #### [address] [address] #### BMP, GFR #### [address] [address] Neutrophils/100 WBC (Bld) 79.6 % High 50.0-75.0 [facility] ([place]) Comment on above: Performed By: #### C BC, ADIFF, ANEU #### [address] [address] #### BMP, GFR #### [address] [address] .GFRon 06-05-2019 GFR >60 Normal [facility] ([place]) Comment on above: Result Comment: GFR Population [...] By: #### C BC, ADIFF, ANEU #### [address] [address] #### BMP, GFR #### [address] [address] GFR Non- >60 Normal [facility] ([place]) Comment on above: Result Comment: GFR Population [...] Performed By: #### C BCBRYANIFF, ANEU #### [place] [address] #### BMP, GFR #### [place] [address] .Morphon 06-05-2019 Platelets (Bld) [#/Vol] Slt Decreased Normal [facility] ([place]) Comment on above: Performed By: #### C STEPHANIE KRISHNAMURTHY, ANEU #### [place] [address] #### BMP, GFR #### [place] [address] RBC morphology finding Nom (Bld) Normal Normal [facility] ([place]) Comment on above: Performed By: #### C STEPHANIE KRISHNAMURTHY, ANEU #### [place] [address] #### BMP, GFR #### [place] [address] .NEUABSon 06-05-2019 Neutrophils (Bld) [#/Vol] 9.30 10 3/mcL High 2.25-8.10 [facility] ([place]) Comment on above: Performed By: #### C STEPHANIE KRISHNAMURTHY, ANEU #### [place] [address] #### BMP, GFR #### [place] [address] BMPon 06-05-2019 Calcium [Mass/Vol] 8.2 mg/dL Low 8.4-10.1 [facility] ([place]) Comment on above: Performed By: #### C BC, ADIFF, ANEU #### [address] [address] #### BMP, GFR #### [address] [address] CO2 [Moles/Vol] 23 mmol/L Normal 22-32 [facility] ([place]) Comment on above: Performed By: #### C BC, ADIFF, ANEU #### [address] [address] #### BMP, GFR #### [address] [address] Creatinine [Mass/Vol] 0.65 mg/dL Normal 0.50-1.20 [facility] ([place]) Comment on above: Performed By: #### C BC, ADIFF, ANEU #### [address] [address] #### BMP, GFR #### [address] [address] Electrolyte Balance 11.0 mEq/L Normal 4.0-15.0 [facility] ([place]) Comment on above: Performed By: #### C BC, ADIFF, ANEU #### [address] [address] #### BMP, GFR #### [address] [address] Glucose [Mass/Vol] 114 mg/dL Normal 82-115 [facility] ([place]) Comment on above: Performed By: #### C BC, ADIFF, ANEU #### [address] [address] #### BMP, GFR #### [address] [address] Potassium [Moles/Vol] 4.2 mmol/L Normal 3.5-5.0 [facility] ([place]) Comment on above: Performed By: #### C BC, ADIFF, ANEU #### [address] [address] #### BMP, GFR #### [address] [address] Urea nitrogen [Mass/Vol] 9.0 mg/dL Normal 8.0-22.0 [facility] ([place]) Comment on above: Performed By: #### C BC, ADIFF, ANEU #### [address] [address] #### BMP, GFR #### [address] [address] Urea nitrogen/Creatinine [Mass ratio] 13.8 ratio Normal 10.0-22.0 [facility] ([place]) Comment on above: Performed By: #### C BC, ADIFF, ANEU #### [address] [address] #### BMP, GFR #### [address] [address] Chloride [Moles/Vol] 107 mmol/L Normal 98-110 [facility] ([place]) Comment on above: Performed By: #### C BC, ADIFF, ANEU #### [address] [address] #### BMP, GFR #### [address] [address] Sodium [Moles/Vol] 141 mmol/L Normal 136-145 [facility] ([place]) Comment on above: Performed By: #### C BC, ADIFF, ANEU #### [place] [address] #### BMP, GFR #### [address] [address] CBCon 06-05-2019 Platelet mean volume (Bld) [Entitic vol] 9.1 fL Normal 6.6-10.5 [facility] ([place]) Comment on above: Performed By: #### C BC, ADIFF, ANEU #### [address] [address] #### BMP, GFR #### [address] [address] Platelets (Bld) [#/Vol] 143 10 3/mcL Low 150-450 [facility] ([place]) Comment on above: Performed By: #### C BC, ADIFF, ANEU #### [address] [address] #### BMP, GFR #### [address] [address] Erythrocyte distribution width (RBC) [Ratio] 14.0 % Normal 11.5-15.5 [facility] ([place]) Comment on above: Performed By: #### C BC, ADIFF, ANEU #### [address] [address] #### BMP, GFR #### [address] [address] Hematocrit (Bld) [Volume fraction] 30.7 % Low 34.0-46.0 [facility] ([place]) Comment on above: Performed By: #### C BC, ADIFF, ANEU #### [place] [address] #### BMP, GFR #### [address] [address] Hemoglobin (Bld) [Mass/Vol] 10.7 G/dL Low 12.0-16.0 [facility] ([place]) Comment on above: Performed By: #### C BC, ADIFF, ANEU #### [place] [address] #### BMP, GFR #### [address] [address] MCH (RBC) [Entitic mass] 30.4 pg Normal 27.0-33.0 [facility] ([place]) Comment on above: Performed By: #### C BC, ADIFF, ANEU #### [place] [address] #### BMP, GFR #### [address] [address] MCHC (RBC) [Mass/Vol] 34.8 G/dL Normal 32.0-36.0 [facility] ([place]) Comment on above: Performed By: #### C BC, ADIFF, ANEU #### [place] [address] #### BMP, GFR #### [place] [address] MCV (RBC) [Entitic vol] 87.6 fL Normal 80.0-99.0 [facility] ([place]) Comment on above: Performed By: #### C BC, ADIFF, ANEU #### [place] [address] #### BMP, GFR #### [place] [address] RBC (Bld) [#/Vol] 3.50 10 6/mcL Low 4.10-5.30 [facility] ([place]) Comment on above: Performed By: #### C BC, ADIFF, ANEU #### [place] [address] #### BMP, GFR #### [place] [address] WBC (Bld) [#/Vol] 11.60 10 3/mcL High 4.50-10.80 [facility] ([place]) Comment on above: Performed By: #### C BC ADIFF, ANEU #### [place] [address] #### BMP, GFR #### [place] [address] XR CHEST 1 VIEWon 06-05-2019 XR CHEST [...] AM Sign Date: 06/05/2019 7:45:20 AM Normal [facility] ([place]) XR CHEST 1 VIEW ORIGINAL PORTABLE UPRIGHT [...] PM Sign Date: 06/04/2019 11:53:30 PM Normal [facility] ([place]) .Auto Diffon 06-04-2019 Ammonia (P) [Mass/Vol] 0.90 10 3/mcL Normal 0.09-1.40 [facility] ([place]) Comment on above: Performed By: #### C STEPHANIE KRISHNAMURTHY ANEU #### [address] [address] #### BMP, GFR #### [address] [address] Basophils (Bld) [#/Vol] 0.00 10 3/mcL Normal 0.00-0.27 [facility] ([place]) Comment on above: Performed By: #### C STEPHANIE KRISHNAMURTHY ANEU #### [address] [address] #### BMP, GFR #### [address] [address] Basophils/100 WBC (Bld) 0.3 % Normal 0.0-2.5 [facility] ([place]) Comment on above: Performed By: #### C BC, ADIFF, ANEU #### [place] [address] #### BMP, GFR #### [address] [address] Eosinophils (Bld) [#/Vol] 0.00 10 3/mcL Normal 0.00-0.65 [facility] ([place]) Comment on above: Performed By: #### C BC, ADIFF, ANEU #### [place] [address] #### BMP, GFR #### [address] [address] Eosinophils/100 WBC (Bld) 0.1 % Normal 0.0-6.0 [facility] ([place]) Comment on above: Performed By: #### C BC, ADIFF, ANEU #### [place] [address] #### BMP, GFR #### [address] [address] Lymphocytes (Bld) [#/Vol] 0.90 10 3/mcL Normal 0.90-4.32 [facility] ([place]) Comment on above: Performed By: #### C BC, ADIFF, ANEU #### [place] [address] #### BMP, GFR #### [address] [address] Lymphocytes/100 WBC (Bld) 10.3 % Low 20.0-40.0 [facility] ([place]) Comment on above: Performed By: #### C BC, ADIFF, ANEU #### [place] [address] #### BMP, GFR #### [address] [address] Monocytes/100 WBC (Bld) 9.5 % Normal 2.0-13.0 [facility] ([place]) Comment on above: Performed By: #### C BC, ADIFF, ANEU #### [address] [address] #### BMP, GFR #### [address] [address] Neutrophils/100 WBC (Bld) 79.8 % High 50.0-75.0 [facility] ([place]) Comment on above: Performed By: #### C BC, ADIFF, ANEU #### [address] [address] #### BMP, GFR #### [address] [address] .GFRon 06-04-2019 GFR >60 Normal [facility] ([place]) Comment on above: Result Comment: GFR Population [...] By: #### C BC, ADIFF, ANEU #### [address] [address] #### BMP, GFR #### [address] [address] GFR Non- >60 Normal [facility] ([place]) Comment on above: Result Comment: GFR Population [...] By: #### C BC, ADIFF, ANEU #### [address] [address] #### BMP, GFR #### [address] [address] .NEUABSon 06-04-2019 Neutrophils (Bld) [#/Vol] 7.20 10 3/mcL Normal 2.25-8.10 [facility] ([place]) Comment on above: Performed By: #### C BCBRYANIFF, ANEU #### [place] [address] #### BMP, GFR #### [address] [address] BMPon 06-04-2019 Calcium [Mass/Vol] 8.8 mg/dL Normal 8.4-10.1 [facility] ([place]) Comment on above: Performed By: #### C BCBRYANIFF, ANEU #### [place] [address] #### BMP, GFR #### [address] [address] Chloride [Moles/Vol] 109 mmol/L Normal 98-110 [facility] ([place]) Comment on above: Performed By: #### C BC ADIFF, ANEU #### [place] [address] #### BMP, GFR #### [address] [address] CO2 [Moles/Vol] 25 mmol/L Normal 22-32 [facility] ([place]) Comment on above: Performed By: #### C BC, ADIFF, ANEU #### [place] [address] #### BMP, GFR #### [address] [address] Creatinine [Mass/Vol] 0.82 mg/dL Normal 0.50-1.20 [facility] ([place]) Comment on above: Performed By: #### C BC, ADIFF, ANEU #### [address] [address] #### BMP, GFR #### [address] [address] Electrolyte Balance 8.0 mEq/L Normal 4.0-15.0 [facility] ([place]) Comment on above: Performed By: #### C BC, ADIFF, ANEU #### [address] [address] #### BMP, GFR #### [address] [address] Glucose [Mass/Vol] 132 mg/dL High 82-115 [facility] ([place]) Comment on above: Performed By: #### C BC, ADIFF, ANEU #### [place] [address] #### BMP, GFR #### [address] [address] Potassium [Moles/Vol] 4.3 mmol/L Normal 3.5-5.0 [facility] ([place]) Comment on above: Performed By: #### C BC, ADIFF, ANEU #### [place] [address] #### BMP, GFR #### [address] [address] Sodium [Moles/Vol] 142 mmol/L Normal 136-145 [facility] ([place]) Comment on above: Performed By: #### C BC, ADIFF, ANEU #### [place] [address] #### BMP, GFR #### [address] [address] Urea nitrogen [Mass/Vol] 12.0 mg/dL Normal 8.0-22.0 [facility] ([place]) Comment on above: Performed By: #### C BC, ADIFF, ANEU #### [address] [address] #### BMP, GFR #### [address] [address] Urea nitrogen/Creatinine [Mass ratio] 14.6 ratio Normal 10.0-22.0 [facility] ([place]) Comment on above: Performed By: #### C BC, ADIFF, ANEU #### [address] [address] #### BMP, GFR #### [address] [address] CBCon 06-04-2019 Erythrocyte distribution width (RBC) [Ratio] 14.0 % Normal 11.5-15.5 [facility] ([place]) Comment on above: Performed By: #### C RAGHU ADIFF, ANEU #### [address] [address] #### BMP, GFR #### [place] [address] Hematocrit (Bld) [Volume fraction] 38.5 % Normal 34.0-46.0 [facility] ([place]) Comment on above: Performed By: #### C BRYAN KRISHNAMURTHYIFF, ANEU #### [place] [address] #### BMP, GFR #### [address] [address] Hemoglobin (Bld) [Mass/Vol] 13.0 G/dL Normal 12.0-16.0 [facility] ([place]) Comment on above: Performed By: #### C BC, ADIFF, ANEU #### [address] [address] #### BMP, GFR #### [address] [address] MCH (RBC) [Entitic mass] 30.1 pg Normal 27.0-33.0 [facility] ([place]) Comment on above: Performed By: #### C BC ADIFF, ANEU #### [place] [id number] #### BMP, GFR #### [address] [address] MCHC (RBC) [Mass/Vol] 33.7 G/dL Normal 32.0-36.0 [facility] ([place]) Comment on above: Performed By: #### C BC, ADIFF, ANEU #### [address] [address] #### BMP, GFR #### [address] [address] MCV (RBC) [Entitic vol] 89.5 fL Normal 80.0-99.0 [facility] ([place]) Comment on above: Performed By: #### C BC, ADIFF, ANEU #### [place] [id number] #### BMP, GFR #### [address] [address] Platelet mean volume (Bld) [Entitic vol] 7.6 fL Normal 6.6-10.5 [facility] ([place]) Comment on above: Performed By: #### C BC, ADIFF, ANEU #### [place] [id number] #### BMP, GFR #### [address] [address] Platelets (Bld) [#/Vol] 197 10 3/mcL Normal 150-450 [facility] ([place]) Comment on above: Performed By: #### C BC, ADIFF, ANEU #### [place] [id number] #### BMP, GFR #### [address] [address] RBC (Bld) [#/Vol] 4.31 10 6/mcL Normal 4.10-5.30 [facility] ([place]) Comment on above: Performed By: #### C BC, ADIFF, ANEU #### [address] [address] #### BMP, GFR #### [address] [place] [address] WBC (Bld) [#/Vol] 9.00 10 3/mcL Normal 4.50-10.80 [facility] ([place]) Comment on above: Performed By: #### C BC, ADYAMILEX, ANEU #### [place] [address] [place], [place] [address] #### BMP, GFR #### [address] [address] [address] ANKLE W/O CONTRAST RIGHTo n 06-04-2019 [...] PM Sign Date: 06/04/2019 12:03:00 AM Normal [facility] ([place]) CT WRIST W/O CONTRAST RIGHTo n 06-04-2019 [...] AM Sign Date: 06/04/2019 12:04:55 AM Normal [facility] ([place]) PROon 06-04-2019 INR Coag (PPP) [Relative time] 1.0 {INR} Normal [facility] ([place]) Comment on above: Result Comment: The [employer] (CHEST, 1992, 102:[id number]) recommended therapeutic range for oral anticoagulant therapy is: LOW RISK: Prophylaxis of venous thrombosis INR: 2.0-3.0 Treatment of pulmonary embolism 2.0-3.0 Prevention of systemic embolism 2.0-3.0 HIGH RISK: Mechanical prosthetic valves 2.5-3.5 Performed By: #### C BC, ADIFF, ANEU #### [facility] [address] [place], [place] [address] #### BMP, GFR #### [address] [address] PT Coag (PPP) [Time] 12.0 s Normal 9.0-14.6 [facility] ([place]) Comment on above: Result Comment: Effe ctive 03/28/08, Protime results may be affected by some antibiotics (i.e. Ciprofloxacin, Azithromycin, Bactrim) which may potentiate the action of oral anticoagulants, with further increases in Protime/INR. Performed By: #### C BC, ADIFF, ANEU #### [address] [address] #### BMP, GFR #### [place] [address] TABOon 06-04-2019 ABO/Rh Interp Negative [facility] ([place]) Comment on above: Performed By: #### C BC, ADIFF, ANEU #### [address] [address] #### BMP, GFR #### [place] [address] TABSon 06-04-2019 Antibody Screen Tango Negative Normal [facility] ([place]) Comment on above: Performed By: #### C BC, ADIFF, ANEU #### [place] [address] #### BMP, GFR #### [place] [address] XR CHEST 1 VIEWon 06-04-2019 XR CHEST [...] AM Sign Date: 06/04/2019 5:25:45 AM Normal [facility] ([place]) XR FLUORO < 1HR TECH TIMEon 06-04-2019 XR FLUORO < 1HR TECH TIME ORIGINAL Intraoperative fluoroscopy and image intensifier views of the right ankle Clinical Statement: rt ankle fx, internal fixation Comparison: Radiographs 06/03/2019 FINDINGS: Technical Details: Tech Time - < 1hr\\[id number]\\1120-2p total for both ; C-Arm # - 7; Total Dose - .85mGy; Images - 6; Test Deck Supervisor - nmk; History - rt ankle fx, [...] PM Sign Date: 06/04/2019 3:30:03 PM Normal [facility] ([place]) XR FLUORO 1-2 HRS TECH TIMEo n 06-04-2019 XR FLUORO 1-2 HRS TECH TIME ORIGINAL Intraoperative fluoroscopy and image intensifier views of the right wrist Clinical Statement: rt wrist fx, internal fixation Comparison: 06/03/2019 FINDINGS: Technical Details: Tech Time - 1120-2p total for both exams; C-Arm # - 7; Total Dose - 1.71mGy; Images - 5; Test Deck Supervisor - nmk; History - rt wrist fx; [...] PM Sign Date: 06/04/2019 3:36:44 PM Normal [facility] ([place]) XR HAND MINIMUM 3 VIEWS LEFT on [...] AM Sign Date: 06/04/2019 9:53:38 AM Normal [facility] ([place]) .Auto Diffon 06-03-2019 Ammonia (P) [Mass/Vol] 0.60 10 3/mcL Normal 0.15-1.00 [facility] ([place]) Comment on above: Performed By: #### C STEPHANIE KRISHNAMURTHY, ANEU #### [place] [address] #### BMP, GFR #### [address] [address] Basophils (Bld) [#/Vol] 0.00 10 3/mcL Normal 0.00-0.19 [facility] ([place]) Comment on above: Performed By: #### STEPHANIE JOHNSON, ANEU #### [place] [address] #### BMP, GFR #### [address] [address] Basophils/100 WBC (Bld) 0.4 % Normal 0.0-2.5 [facility] ([place]) Comment on above: Performed By: #### C STEPHANIE KRISHNAMURTHY, ANEU #### [place] [address] #### BMP, GFR #### [address] [address] Eosinophils (Bld) [#/Vol] 0.10 10 3/mcL Normal 0.00-0.40 [facility] ([place]) Comment on above: Performed By: #### C BCSTEPHANIE, ANEU #### [place] [address] #### BMP, GFR #### [address] [address] Eosinophils/100 WBC (Bld) 1.0 % Normal 0.0-7.0 [facility] ([place]) Comment on above: Performed By: #### C BCBRYANIFF, ANEU #### [place] [id number] #### BMP, GFR #### [address] [address] Lymphocytes (Bld) [#/Vol] 1.20 10 3/mcL Normal 0.77-3.85 [facility] ([place]) Comment on above: Performed By: #### C BC, ADIFF, ANEU #### [address] [address] #### BMP, GFR #### [address] [address] Lymphocytes/100 WBC (Bld) 12.6 % Normal 10.0-50.0 [facility] ([place]) Comment on above: Performed By: #### C BC, ADIFF, ANEU #### [place] [address] #### BMP, GFR #### [address] [address] Monocytes/100 WBC (Bld) 6.3 % Normal 1.7-13.0 [facility] ([place]) Comment on above: Performed By: #### C BC, ADIFF, ANEU #### [place] [address] #### BMP, GFR #### [address] [address] Neutrophils/100 WBC (Bld) 79.7 % Normal 37.0-80.0 [facility] ([place]) Comment on above: Performed By: #### C BC, ADIFF, ANEU #### [place] [address] #### BMP, GFR #### [address] [address] .GFRon 06-03-2019 GFR 78 ml/min/1.73sqm Normal [facility] ([place]) Comment on above: Result Comment: GFR [...] Performed By: #### C BCBRYANIFF, ANEU #### [address] [address] #### BMP, GFR #### [address] [address] GFR Non- 64 ml/min/1.73sqm Normal [facility] ([place]) Comment on above: Result Comment: GFR Population [...] Performed By: #### C BCSTEPHANIE, ANEU #### [address] [address] #### BMP, GFR #### [address] [address] .NEUABSon 06-03-2019 Neutrophils (Bld) [#/Vol] 7.90 10 3/mcL High 2.85-6.16 [facility] ([place]) Comment on above: Performed By: #### C BCBRYANIFF, ANEU #### [address] [address] #### BMP, GFR #### [address] [address] BMPon 06-03-2019 Calcium [Mass/Vol] 9.2 mg/dL Normal 8.4-10.2 [facility] ([place]) Comment on above: Performed By: #### C BC, ADIFF, ANEU #### [address] [address] #### BMP, GFR #### [address] [address] Chloride [Moles/Vol] 104 mmol/L Normal 98-107 [facility] ([place]) Comment on above: Performed By: #### C BC, ADIFF, ANEU #### [address] [address] #### BMP, GFR #### [place] [address] CO2 [Moles/Vol] 30 mmol/L Normal 23-31 [facility] ([place]) Comment on above: Performed By: #### C BC, ADIFF, ANEU #### [place] [address] #### BMP, GFR #### [address] [address] Creatinine [Mass/Vol] 0.85 mg/dL Normal 0.55-1.02 [facility] ([place]) Comment on above: Performed By: #### C BC, ADIFF, ANEU #### [address] [address] #### BMP, GFR #### [place] [address] Electrolyte Balance 9.0 mEq/L Normal [facility] ([place]) Comment on above: Performed By: #### C BC, ADIFF, ANEU #### [place] [address] #### BMP, GFR #### [place] [address] Glucose [Mass/Vol] 135 mg/dL High 83-110 [facility] ([place]) Comment on above: Performed By: #### C BC, ADIFF, ANEU #### [address] [address] #### BMP, GFR #### [address] [address] Potassium [Moles/Vol] 4.1 mmol/L Normal 3.5-5.1 [facility] ([place]) Comment on above: Performed By: #### C BC, ADIFF, ANEU #### [address] [address] #### BMP, GFR #### [address] [address] Sodium [Moles/Vol] 143 mmol/L Normal 136-145 [facility] ([place]) Comment on above: Performed By: #### C BC, ADIFF, ANEU #### [address] [address] #### BMP, GFR #### [address] [address] Urea nitrogen [Mass/Vol] 14 mg/dL Normal 7-18 [facility] ([place]) Comment on above: Performed By: #### C BC, ADIFF, ANEU #### [address] [address] #### BMP, GFR #### [address] [address] Urea nitrogen/Creatinine [Mass ratio] 16 ratio Normal 7-27 [facility] ([place]) Comment on above: Performed By: #### C BC, ADIFF, ANEU #### [place] [address] #### BMP, GFR #### [address] [address] CBCon 06-03-2019 Erythrocyte distribution width (RBC) [Ratio] 14.3 % Normal 11.5-14.5 [facility] ([place]) Comment on above: Performed By: #### C BC, ADIFF, ANEU #### [address] [address] #### BMP, GFR #### [address] [address] Hematocrit (Bld) [Volume fraction] 38.5 % Normal 37.0-47.0 [facility] ([place]) Comment on above: Performed By: #### C STEPHANIE KRISHNAMURTHY, ANEU #### [address] [address] #### BMP, GFR #### [address] [address] Hemoglobin (Bld) [Mass/Vol] 13.0 G/dL Normal 12.0-16.0 [facility] ([place]) Comment on above: Performed By: #### C STEPHANIE KRISHNAMURTHY, ANEU #### [place] [address] #### BMP, GFR #### [place] [address] MCH (RBC) [Entitic mass] 30.0 pg Normal 27.0-31.2 [facility] ([place]) Comment on above: Performed By: #### C STEPHANIE KRISHNAMURTHY, ANEU #### [place] [address] #### BMP, GFR #### [place] [address] MCHC (RBC) [Mass/Vol] 33.8 G/dL Normal 33.0-37.0 [facility] ([place]) Comment on above: Performed By: #### STEPHANIE JOHNSON, ANEU #### [place] [address] #### BMP, GFR #### [place] [address] MCV (RBC) [Entitic vol] 88.6 fL Normal 80.0-94.0 [facility] ([place]) Comment on above: Performed By: #### STEPHANIE JOHNSON, ANEU #### [place] [address] #### BMP, GFR #### [place] [id number] Platelet mean volume (Bld) [Entitic vol] 8.1 fL Normal 7.4-10.4 [facility] ([place]) Comment on above: Performed By: #### C BC, ADIFF, ANEU #### [address] [address] #### BMP, GFR #### [address] [address] Platelets (Bld) [#/Vol] 221 10 3/mcL Normal 130-400 [facility] ([place]) Comment on above: Performed By: #### C BC, ADIFF, ANEU #### [address] [address] #### BMP, GFR #### [address] [address] RBC (Bld) [#/Vol] 4.35 10 6/mcL Normal 4.20-5.40 [facility] ([place]) Comment on above: Performed By: #### C BC, ADIFF, ANEU #### [place] [address] #### BMP, GFR #### [address] [address] WBC (Bld) [#/Vol] 9.90 10 3/mcL Normal 4.60-10.80 [facility] ([place]) Comment on above: Performed By: #### C BC, ADIFF, ANEU #### [place] [address] #### BMP, GFR #### [address] [address] [address] ABD/PELVIS W/ IV CONTRAST ONLYon 06-03-2019 [...] PM Sign Date: 06/03/2019 4:57:41 PM Normal [facility] ([place]) CT HEAD OR BRAIN W/O CONTRAS Ton [...] PM Sign Date: 06/03/2019 4:10:32 PM Normal [facility] ([place]) CT SPINE CERVICAL W/O CONTRA STon 06-03-2019 [...] PM Sign Date: 06/03/2019 4:35:12 PM Normal [facility] ([place]) CT THORAX W/ CONTRASTon 05-16 CT THORAX [...] PM Sign Date: 06/03/2019 4:53:52 PM Normal [facility] ([place]) XR ANKLE AND FOOT 6 VIEWS RI [...] PM Sign Date: 06/03/2019 3:45:45 PM Normal [facility] ([place]) XR ANKLE MINIMUM 3 VIEWS RIG HTon [...] PM Sign Date: 06/03/2019 7:11:45 PM Normal [facility] ([place]) XR CHEST 1 VIEWon 06-03-2019 XR CHEST [...] PM Sign Date: 06/03/2019 6:20:15 PM Normal [facility] ([place]) XR CHEST 1 VIEW ORIGINAL XR CHEST [...] PM Sign Date: 06/03/2019 3:47:37 PM Normal [facility] ([place]) XR FOREARM 2 VIEWS RIGHTon 0 06-03-2019 [...] PM Sign Date: 06/03/2019 7:13:59 PM Normal [facility] ([place]) XR KNEE THREE VIEWS RIGHTon 06-03-2019 XR [...] PM Sign Date: 06/03/2019 7:12:24 PM Normal [facility] ([place]) XR PELVIS 1 OR 2 VIEWSon XR [...] PM Sign Date: 06/03/2019 3:58:51 PM Normal [facility] ([place]) XR WRIST TWO VIEWS RIGHTon 0 06-03-2019 [...] PM Sign Date: 06/03/2019 3:56:05 PM Normal [facility] ([place]) C-REACTIVE PROTEIN ([id number])Or dered By: Dobie Man on 10-15-2017 CRP mass conc 1.0 mg/L Normal 0.0-4.9 [facility] Work Phone: Comment on above: PATIENT NOT FASTINGP ERFORMED BY: [id number] [facility] HospitalAlkymosSelect [facility] [id number] CBC (AUTO) ([id number])Ordered By : Dobie Man on 10-15-2017 Erythrocyte distribution width Ratio (RBC) 13.8 % Normal 12.3-15.4 [facility] Work Phone: Comment on above: PATIENT NOT FASTINGP ERFORMED BY: [employer]6370 RodriguezPemiscot Memorial Health SystemsAlkymosSelect Specialty Hospital - Winston-Salem [id number] Hematocrit Volume Fraction (Bld) 40.2 % Normal 34.0-46.6 [facility] Work Phone: Comment on above: PATIENT NOT FASTINGP ERFORMED BY: [employer]6370 [facility] [id number] Hemoglobin mass conc (Bld) 13.4 g/dL Normal 11.1-15.9 [facility] Work Phone: Comment on above: PATIENT NOT FASTINGP ERFORMED BY: CB [facility] Ybupxr3495 Rodriguez RoadDublin [place] [id number] MCH Entitic mass (RBC) 29.8 pg Normal 26.6-33.0 [facility] Internal Medicine Work Phone: Comment on above: PATIENT NOT FASTINGP ERFORMED BY: CB [facility] Sxzeqe5134 Rodriguez RoadDublin [place] [id number] MCHC mass conc (RBC) 33.3 g/dL Normal 31.5-35.7 [facility] Internal Medicine Work Phone: Comment on above: PATIENT NOT FASTINGP ERFORMED BY: CB [facility] Tivffr1967 Rodriguez RoadDublin [place] [id number] MCV Entitic volume (RBC) 90 fL Normal 79-97 [facility] Internal Medicine Work Phone: Comment on above: PATIENT NOT FASTINGP ERFORMED BY: CB [facility] Eadbmk8834 [address] RoadDublin [place] [id number] Platelets #/vol (Bld) 211 {x10E3/uL} Normal 150-379 [facility] Internal Medicine Work Phone: Comment on above: PATIENT NOT FASTINGP ERFORMED BY: CB [facility] Ocmeod6643 Rodriguez RoadDublin [place] [id number] RBC #/vol (Bld) 4.49 {x10E6/uL} Normal 3.77-5.28 [facility] Internal Medicine Work Phone: Comment on above: PATIENT NOT FASTINGP ERFORMED BY: CB [facility] Jvxlya8438 Rodriguez RoadDublin [place] [id number] WBC #/vol (Bld) 4.9 {x10E3/uL} Normal 3.4-10.8 [facility] Internal Medicine Work Phone: Comment on above: PATIENT NOT FASTINGP ERFORMED BY: CB [facility] Xsuvon6864 [address] RoadDublin [place] [id number] METABOLIC PANEL, COMPREHENSI VE ([id number])Ordered By: Dobie Man on 10-15-2017 Albumin mass conc 3.9 g/dL Normal 3.5-4.8 Compreh ensive Internal Medicine Work Phone: Comment on above: PATIENT NOT FASTINGP ERFORMED BY: ORTIZ LabCoaustyn ChesterMputas5289 [address] [facility] [id number] Albumin/Globulin mass ratio 1.6 {ratio} Normal 1.2-2.2 [facility] Work Phone: Comment on above: PATIENT NOT FASTINGP ERFORMED BY: ORTIZ [facility] Jfdbve8730 [address] [facility] [id number] ALP enzyme act/vol 78 [iU]/L Normal 39-[address] Internal Medicine Work Phone: Comment on above: PATIENT NOT FASTINGP ERFORMED BY: ORTIZ [facility] Ezghhs3339 [facility] [id number] ALT enzyme act/vol 18 [iU]/L Normal 0-[address] [facility] Internal Medicine Work Phone: Comment on above: PATIENT NOT FASTINGP ERFORMED BY: ORTIZ [facility] Wfpyar5249 [facility] [id number] AST enzyme act/vol 25 [iU]/L Normal 0-40 [facility] Work Phone: Comment on above: PATIENT NOT FASTINGP ERFORMED BY: ORTIZ RobledoCo Razeul8064 [facility] [id number] Bilirubin mass conc 0.4 mg/dL Normal 0.0-1.2 Compr [facility] Internal Medicine Work Phone: Comment on above: PATIENT NOT FASTINGP ERFORMED BY: ORTIZ [facility] Xjwaqx8693 [facility] [id number] Calcium mass conc 9.5 mg/dL Normal 8.7-10.3 Compreh bannerive Internal Medicine Work Phone: Comment on above: PATIENT NOT FASTINGP ERFORMED BY: ORTIZ [facility] Wvufpk5840 [facility] [id number] Chloride molar conc 102 mmol/L Normal 96-106 Compr ensive Internal Medicine Work Phone: Comment on above: PATIENT NOT FASTINGP ERFORMED BY: Lab[facility] Gbfsim1525 [address] [facility] [place] [id number] CO2 molar conc 27 mmol/L Normal 18-29 Comprehens trupti Internal Medicine Work Phone: Comment on above: PATIENT NOT FASTINGP ERFORMED BY: ORTIZ [facility] Jhxhjy7212 [address] [facility] [id number] Creatinine mass conc 0.88 mg/dL Normal 0.57-1.00 Comp rehensive Internal Medicine Work Phone: Comment on above: PATIENT NOT FASTINGP ERFORMED BY: [facility] Zxqkwv6446 [facility] [id number] GFR/1.73 sq M predicted among blacks CKD-EPI vol rate/area (S/P/Bld) 73 mL/min/1.73 Normal [facility] Work Phone: Comment on above: PATIENT NOT FASTINGP ERFORMED BY: LabPromedica [facility] Hospital6370 [facility] [id number] GFR/1.73 sq M predicted among non-blacks CKD-EPI vol rate/area (S/P/Bld) 63 mL/min/1.73 Normal Comprehensiv e Internal Medicine Work Phone: Comment on above: PATIENT NOT FASTINGP ERFORMED BY: Lab[facility] Qgmlod4263 [facility] [id number] Globulin mass conc (S) 2.4 g/dL Normal 1.5-4.5 Co mprehensive Internal Medicine Work Phone: Comment on above: PATIENT NOT FASTINGP ERFORMED BY: Lab[facility] Mgwhun2510 [facility] [id number] Glucose mass conc 87 mg/dL Normal 65-99 Compreh ensive Internal Medicine Work Phone: Comment on above: PATIENT NOT FASTINGP ERFORMED BY: Lab[facility] Mqfmzg8982 [facility] [id number] Potassium molar conc 4.8 mmol/L Normal 3.5-5.2 Comp rehensive Internal Medicine Work Phone: Comment on above: PATIENT NOT FASTINGP ERFORMED BY: ORTIZ LabCoaustyn CroweLajahq7683 [address] RoadDublin [place] [id number] Protein mass conc 6.3 g/dL Normal 6.0-8.5 Compreh ensive Internal Medicine Work Phone: Comment on above: PATIENT NOT FASTINGP ERFORMED BY: ORTIZ [facility] Ugjtay6492 [address] RoadDublin [place] [id number] Sodium molar conc 143 mmol/L Normal 134-144 Compreh ensive Internal Medicine Work Phone: Comment on above: PATIENT NOT FASTINGP ERFORMED BY: ORTIZ LabCoaustyn CroweMmmiob1287 [address] RoadDublin [place] [id number] Urea nitrogen mass conc 10 mg/dL Normal 8- [facility] Work Phone: Comment on above: PATIENT NOT FASTINGP ERFORMED BY: ORTIZ LabCoaustyn CroweUtphto2799 [address] RoadDuin [place] [id number] Urea nitrogen/Creatinine mass ratio 11 mg/mg Abnormal 12- [facility] Work Phone: Comment on above: PATIENT NOT FASTINGP ERFORMED BY: ORTIZ LabCoaustyn CroweDoewcu5531 [address] [facility]in [place] [id number] SED RATE ERYTHROCYTE ([id number]) Ordered By: Dobie Man on 10-15-2017 ESR Velocity (Bld) 2 mm/h Normal 0-40 Compre hensive Internal Medicine Work Phone: Comment on above: PATIENT NOT FASTINGP ERFORMED BY: ORTIZ [facility] Gmkqxb4929 [address] [facility] [id number] CBC W/AUTO DIFF WBC ([id number])O rdered By: Dobie Man on 09-01-2017 Basophils #/vol (Bld) 0.0 {x10E3/uL} Normal 0.0-0.2 [facility] Work Phone: Comment on above: PATIENT WAS FASTINGP ERFORMED BY: ORTIZ [facility] Zdjlid9679 [address] RoadDublin [place] [id number] Basophils/100 WBC (Bld) 0 % Normal [facility] Work Phone: Comment on above: PATIENT WAS FASTINGP ERFORMED BY: ORTIZ [facility] Oxkfcz4988 [address] RoadDublin [place] [id number] Eosinophils #/vol (Bld) 0.1 {x10E3/uL} Normal 0.0-0.4 [facility] Work Phone: Comment on above: PATIENT WAS FASTINGP ERFORMED BY: ORTIZ LabSaint [facility] Cvzvul4998 [address] RoadDublin [place] [id number] Eosinophils/100 WBC (Bld) 1 % Normal [facility] Work Phone: Comment on above: PATIENT WAS FASTINGP ERFORMED BY: ORTIZ LabSaint [facility] Esqtpn4529 [address] RoadDublin [place] [id number] Erythrocyte distribution width Ratio (RBC) 13.8 % Normal 12.3-15.4 [facility] Work Phone: Comment on above: PATIENT WAS FASTINGP ERFORMED BY: ORTIZ [facility] Nipgof4183 [address] [place] [id number] Hematocrit Volume Fraction (Bld) 40.2 % Normal 34.0-46.6 [facility] Work Phone: Comment on above: PATIENT WAS FASTINGP ERFORMED BY: ORTIZ [facility]oS[facility] Cysqnv7166 [address] [place] [id number] Hemoglobin mass conc (Bld) 13.2 g/dL Normal 11.1-15.9 [facility] Work Phone: Comment on above: PATIENT WAS FASTINGP ERFORMED BY: LabSaint [facility] Hnoenm0573 [address] [place] [id number] Immature granulocytes #/vol (Bld) 0.0 {x10E3/uL} Normal 0.0-0.1 [facility] Work Phone: Comment on above: PATIENT WAS FASTINGP ERFORMED BY: LabSaint [facility] Iqcezj2926 [address] RoadDublin [place] [id number] Immature granulocytes/100 WBC (Bld) 0 % Normal [facility] Work Phone: Comment on above: PATIENT WAS FASTINGP ERFORMED BY: ORTIZ LabSaint [facility] Gbfzoh2149 [address] [place] [id number] Lymphocytes #/vol (Bld) 1.3 {x10E3/uL} Normal 0.7-3.1 [facility] Work Phone: Comment on above: PATIENT WAS FASTINGP ERFORMED BY: ORTIZ [facility] Zvzddm1771 [address] [facility] [id number] Lymphocytes/100 WBC (Bld) 29 % Normal [facility] Work Phone: Comment on above: PATIENT WAS FASTINGP ERFORMED BY: [facility] Dnpwrp8136 [address] [facility] [id number] MCH Entitic mass (RBC) 29.5 pg Normal 26.6-33.0 [facility] Internal Medicine Work Phone: Comment on above: PATIENT WAS FASTINGP ERFORMED BY: ORTIZ Lab[facility] Xeosup5118 [facility] [id number] MCHC mass conc (RBC) 32.8 g/dL Normal 31.5-35.7 [facility] Internal Medicine Work Phone: Comment on above: PATIENT WAS FASTINGP ERFORMED BY: ORTIZ [facility] Xjafww6626 [facility] [id number] MCV Entitic volume (RBC) 90 fL Normal 79-97 [facility] Work Phone: Comment on above: PATIENT WAS FASTINGP ERFORMED BY: [facility] Hmxeje7550 [facility] [id number] Monocytes #/vol (Bld) 0.4 {x10E3/uL} Normal 0.1-0.9 [facility] Work Phone: Comment on above: PATIENT WAS FASTINGP ERFORMED BY: [facility] Jxumqj1668 [address] [facility] [id number] Monocytes/100 WBC (Bld) 9 % Normal [facility] Work Phone: Comment on above: PATIENT WAS FASTINGP ERFORMED BY: [facility] Aqoxpz4550 [address] [facility] [id number] Neutrophils #/vol (Bld) 2.7 {x10E3/uL} Normal 1.4-7.0 [facility] Work Phone: Comment on above: PATIENT WAS FASTINGP ERFORMED BY: ORTIZ LabCoaustyn Tmctrs9623 Rodriguez RoadDublin [place] [id number] Neutrophils/100 WBC (Bld) 61 % Normal [facility] Work Phone: Comment on above: PATIENT WAS FASTINGP ERFORMED BY: ORTIZ [facility] Pjampx6990 [address] RoadDublin [place] [id number] Platelets #/vol (Bld) 198 {x10E3/uL} Normal 150-379 [facility] Work Phone: Comment on above: PATIENT WAS FASTINGP ERFORMED BY: ORTIZ [facility] Taxgch2108 [address] RoadDublin [place] [id number] RBC #/vol (Bld) 4.47 {x10E6/uL} Normal 3.77-5.28 [facility] Internal Medicine Work Phone: Comment on above: PATIENT WAS FASTINGP ERFORMED BY: ORTIZ [facility] Chivma9873 Rodriguez RoadDublin [place] [id number] WBC #/vol (Bld) 4.5 {x10E3/uL} Normal 3.4-10.8 [facility] Internal Medicine Work Phone: Comment on above: PATIENT WAS FASTINGP ERFORMED BY: ORTIZ [facility] Jetqlj2760 [address] [facility] [place] [id number] LIPID PANEL ([id number])Ordered B y: Dobie Man on 09-01-2017 Cholesterol in HDL mass conc 59 mg/dL Normal [facility] Work Phone: Comment on above: PATIENT WAS FASTINGP ERFORMED BY: ORTIZ [facility] Fyovdo8562 Rodriguez RoadDublin [place] [id number] Cholesterol in LDL mass conc 72 mg/dL Normal 0-99 [facility] Work Phone: Comment on above: PATIENT WAS FASTINGP ERFORMED BY: ORTIZ [facility] Tevtbm5049 Rodriguez RoadDublin [place] [id number] Cholesterol in LDL/Cholesterol in HDL mass ratio 1.2 {ratio_units} Normal 0.0-3.2 [facility] Work Phone: Comment on above: LDL/HDL Ratio Men Wo men 1/2 Avg.Risk 1.0 1.5 Avg.Risk 3.6 3.2 2X Avg.Risk 6.2 5.0 3X Avg.Risk 8.0 6.1 PATIENT WAS FASTINGP ERFORMED BY: ORTIZ [facility] Cldrrn7270 Rodriguez RoadDublin [place] [id number] Cholesterol in VLDL mass conc 18 mg/dL Normal 5-40 [facility] Work Phone: Comment on above: PATIENT WAS FASTINGP ERFORMED BY: ORTIZ LabCoaustyn Iidkra0505 [address] RoadDublin [place] [id number] Cholesterol mass conc 149 mg/dL Normal 100-199 Com prehensive Internal Medicine Work Phone: Comment on above: PATIENT WAS FASTINGP ERFORMED BY: ORTIZ LabCoaustyn Znyuwm0768 [address] RoadDublin [place] [id number] Triglyceride mass conc 92 mg/dL Normal 0-149 [facility]ensive [facility] Work Phone: Comment on above: PATIENT WAS FASTINGP ERFORMED BY: ORTIZ LabCoaustyn Mkgqgb6291 [address] RoadDublin [place] [id number] METABOLIC PANEL, COMPREHENSI VE ([id number])Ordered By: Dobie Man on 09-01-2017 Albumin mass conc 4.3 g/dL Normal 3.5-4.8 Compreh [facility] Internal Medicine Work Phone: Comment on above: PATIENT WAS FASTINGP ERFORMED BY: ORTIZ [facility] Uderoy8930 [address] RoadDublin [place] [id number] Albumin/Globulin mass ratio 2.0 {ratio} Normal 1.2-2.2 [facility] Work Phone: Comment on above: PATIENT WAS FASTINGP ERFORMED BY: ORTIZ [facility] Fsvuxe5107 [address] RoadDublin [place] [id number] ALP enzyme act/vol 71 [iU]/L Normal 39-[address] [facility] Internal Medicine Work Phone: Comment on above: PATIENT WAS FASTINGP ERFORMED BY: ORTIZ [facility] Azspkh6205 [address] RoadDublin [place] [id number] ALT enzyme act/vol 11 [iU]/L Normal 0-32 [facility] Internal Medicine Work Phone: Comment on above: PATIENT WAS FASTINGP ERFORMED BY: CB [facility] Gmevxm1360 [address] RoadDublin [place] [id number] AST enzyme act/vol 16 [iU]/L Normal 0-40 [facility] Internal Medicine Work Phone: Comment on above: PATIENT WAS FASTINGP ERFORMED BY: CB [facility] Twhkny7272 [address] RoadDublin [place] [id number] Bilirubin mass conc 0.4 mg/dL Normal 0.0-1.2 [facility] Work Phone: Comment on above: PATIENT WAS FASTINGP ERFORMED BY: [facility] Ucibph3314 [address] RoadDublin [place] [id number] Calcium mass conc 9.5 mg/dL Normal 8.7-10.3 Compreh bannerive Internal Medicine Work Phone: Comment on above: PATIENT WAS FASTINGP ERFORMED BY: [facility] Ukfttn1003 [address] RoadDublin [place] [id number] Chloride molar conc 102 mmol/L Normal 96-106 [facility] Internal Medicine Work Phone: Comment on above: PATIENT WAS FASTINGP ERFORMED BY: [facility] Hlxdqa7112 [address] Roadblin [place] [id number] CO2 molar conc 27 mmol/L Normal 18-29 [facility]pre[facility] Internal Medicine Work Phone: Comment on above: PATIENT WAS FASTINGP ERFORMED BY: CB [facility] Wszvjv1359 [address] RoadDublin [place] [id number] Creatinine mass conc 0.84 mg/dL Normal 0.57-1.00 Comp [facility] Internal Medicine Work Phone: Comment on above: PATIENT WAS FASTINGP ERFORMED BY: CB [facility] Uwirjb6573 [address] RoadDublin [place] [id number] GFR/1.73 sq M predicted among blacks CKD-EPI vol rate/area (S/P/Bld) 77 mL/min/1.73 Normal [facility] Work Phone: Comment on above: PATIENT WAS FASTINGP ERFORMED BY: ORTIZ [facility] Xzqpox2681 [address] RoadDublin [place] [id number] GFR/1.73 sq M predicted among non-blacks CKD-EPI vol rate/area (S/P/Bld) 67 mL/min/1.73 Normal Comprehensiv e Internal Medicine Work Phone: Comment on above: PATIENT WAS FASTINGP ERFORMED BY: CB [facility] Gpitkp8325 [address] RoadDublin [place] [id number] Globulin mass conc (S) 2.2 g/dL Normal 1.5-4.5 Co mprehensive Internal Medicine Work Phone: Comment on above: PATIENT WAS FASTINGP ERFORMED BY: ORTIZ [facility] Epmsxh9154 [address] RoadDublin [place] [id number] Glucose mass conc 88 mg/dL Normal 65-99 Compreh ensive Internal Medicine Work Phone: Comment on above: PATIENT WAS FASTINGP ERFORMED BY: ORTIZ [facility] Ebkazy2176 [address] RoadDublin [place] [id number] Potassium molar conc 4.3 mmol/L Normal 3.5-5.2 Comp rehensive Internal Medicine Work Phone: Comment on above: PATIENT WAS FASTINGP ERFORMED BY: [facility] Buqhob3344 [address] RoadDublin [place] [id number] Protein mass conc 6.5 g/dL Normal 6.0-8.5 Compreh ensive Internal Medicine Work Phone: Comment on above: PATIENT WAS FASTINGP ERFORMED BY: CB [facility] Zkwdtl2099 [address] RoadDublin [place] [id number] Sodium molar conc 143 mmol/L Normal 134-144 Compreh ensive Internal Medicine Work Phone: Comment on above: PATIENT WAS FASTINGP ERFORMED BY: CB [facility] Dakjrr9929 [address] RoadDublin [place] [id number] Urea nitrogen mass conc 13 mg/dL Normal 8-27 [facility] Work Phone: Comment on above: PATIENT WAS FASTINGP ERFORMED BY: CB [facility] Ugjtsu1254 [address] RoadDublin [place] [id number] Urea nitrogen/Creatinine mass ratio 15 mg/mg Normal 12- [facility] Work Phone: Comment on above: PATIENT WAS FASTINGP ERFORMED BY: CB [facility] Ekiwhm1787 [address] RoadDublin [place] [id number] TSH ([id number])Ordered By: Zscalere m Barrel Handler on 09-01-2017 Thyrotropin Qn 2.410 {uIU/mL} Normal 0.450-4.50 0 [facility] Work Phone: Comment on above: PATIENT WAS FASTINGP ERFORMED BY: CB [facility] Oalwdu2435 [address] RoadDublin [place] [id number] VITAMIN B-12 (CYANOCOBALAMIN ) ([id number])Ordered By: Dobie Man on 09-01-2017 Cobalamin (Vitamin B12) mass conc 311 pg/mL Normal 232-1245 [facility] Work Phone: Comment on above: Please note refere nce interval change PATIENT WAS FASTINGP ERFORMED BY: CB [facility] Jgspfs5661 [address] RoadDublin [place] [id number] Vitamin D Hydroxy (47561)Ord ered By: Dobie Man on 09-01-2017 25-Hydroxyvitamin D2+25-Hydroxyvitamin D3 mass conc 33.4 ng/mL Normal 30.0-100.0 [facility] Work Phone: Comment on above: Vitamin D deficiency has been defined by the [place] of[place]icine and an Endocrine Society practice guideline as alevel of serum 25-OH vitamin D less than 20 ng/mL (1,2).The Endocrine Society went on to further define vitamin Dinsufficiency as a level between 21 and 29 ng/mL (2).1. IOM ([place] of [employer]). 2010. Dietary reference intakes for calcium and D. [place]: The National Academies Press.2. Allie MF, Emile NC, Natalie POOLE, et al. Evaluation, treatment, and prevention of vitamin D deficiency: an Endocrine Society clinical practice guideline. JCEM. 2010; 96(7):1911-30. PATIENT WAS FASTINGP ERFORMED BY: [employer]6370 [address] zadachblin [place] [id number] Office Visiton 06-05-2017 Dietary management education, guidance, and counseling (procedure) yes Invalid Interpretation Code [facility] Work Phone: Documentation of current medications (procedure) Done Invalid Interpretation Code [facility] Work Phone: Fall risk assessment No Invalid Interpretation Code [facility] Work Phone: Tobacco use CPHS Never smoker Invalid Interpretation Code [facility] Work Phone: CALCIFIDIOL (64103) VIT D 25 Ordered By: Dobie Man on 12-16-2016 25-Hydroxyvitamin D2+25-Hydroxyvitamin D3 mass conc 37.5 ng/mL Normal 30.0-100.0 [facility] Work Phone: Comment on above: Vitamin D deficiency has been defined by the [place] of[place] and an Endocrine Society practice guideline as alevel of serum 25-OH vitamin D less than 20 ng/mL (1,2).The Endocrine Society went on to further define vitamin Dinsufficiency as a level between 21 and 29 ng/mL (2).1. IOM ([place] of [employer]). 2010. Dietary reference intakes for calcium and D. [place]: The National Academies Press.2. Allie MF, Emile [place], Natalie POOLE, et al. Evaluation, treatment, and prevention of vitamin D deficiency: an Endocrine Society clinical practice guideline. JCEM. 2010; 96(7):1911-30. PATIENT WAS FASTINGP ERFORMED BY: [employer] Rsmmxz5943 [address] obratnyh zadachblin [place] [id number] HEPATIC FUNCTION PANEL (8007 [id number])Ordered By: Dobie Man on 12-16-2016 Albumin mass conc 4.3 g/dL Normal 3.5-4.8 Compreh ensive Internal Medicine Work Phone: Comment on above: PATIENT WAS FASTINGP ERFORMED BY: [employer] Qyqtfh6431 Rodriguez LagotekDublin [place] [id number] ALP enzyme act/vol 72 [iU]/L Normal 39-117 [facility] Internal Medicine Work Phone: Comment on above: PATIENT WAS FASTINGP ERFORMED BY: ORTIZ [facility] Bjfcas9230 [address] RoadDublin [place] [id number] ALT enzyme act/vol 15 [iU]/L Normal 0-32 [facility] Internal Medicine Work Phone: Comment on above: PATIENT WAS FASTINGP ERFORMED BY: CB [facility] Yzsbah3796 [address] RoadDublin [place] [id number] AST enzyme act/vol 18 [iU]/L Normal 0-40 [facility] Internal Medicine Work Phone: Comment on above: PATIENT WAS FASTINGP ERFORMED BY: ORTIZ [facility] Vuyobo4330 [address] RoadDublin [place] [id number] Bilirubin mass conc 0.5 mg/dL Normal 0.0-1.2 [facility] Internal Medicine Work Phone: Comment on above: PATIENT WAS FASTINGP ERFORMED BY: ORTIZ [facility] Yqmchg0720 Rodriguez RoadCarteret Health Carein [place] [id number] Bilirubin.direct mass conc 0.16 mg/dL Normal 0.00-0.40 [facility] Work Phone: Comment on above: PATIENT WAS FASTINGP ERFORMED BY: ORTIZ [facility] Erohqd0920 Rodriguez RoadCarteret Health Carein [place] [id number] Protein mass conc 6.7 g/dL Normal 6.0-8.5 [facility] Internal Medicine Work Phone: Comment on above: PATIENT WAS FASTINGP ERFORMED BY: [facility] Kbrdis6851 Rodriguez RoadCarteret Health Carein [place] [id number] LIPID PANEL ([id number])Ordered B y: Dobie Man on 12-16-2016 Cholesterol in HDL mass conc 56 mg/dL Normal [facility] Work Phone: Comment on above: PATIENT WAS FASTINGP ERFORMED BY: ORTIZ [facility] Jemfrm1835 [address] RoadDublin [place] [id number] Information: [id number], [id number] Cholesterol in LDL mass conc 44 mg/dL Normal 0-99 [facility] Work Phone: Comment on above: PATIENT WAS FASTINGP ERFORMED BY: ORTIZ [facility] Nkmekf9355 [facility] [id number] Information: [id number], [id number] Cholesterol in LDL/Cholesterol in HDL mass ratio 0.8 {ratio_units} Normal 0.0-3.2 [facility] Work Phone: Comment on above: LDL/HDL Ratio Men Wo men 1/2 Avg.Risk 1.0 1.5 Avg.Risk 3.6 3.2 2X Avg.Risk 6.2 5.0 3X Avg.Risk 8.0 6.1 PATIENT WAS FASTINGP ERFORMED BY: ORTIZ [facility] Jamnbh9786 [facility] [id number] Information: [id number], [id number] Cholesterol in VLDL mass conc 27 mg/dL Normal 5-40 [facility] Work Phone: Comment on above: PATIENT WAS FASTINGP ERFORMED BY: ORTIZ [facility] Qecrim0217 [facility] [id number] Information: [id number], [id number] Cholesterol mass conc 127 mg/dL Normal 100-199 Com prehensive Internal Medicine Work Phone: Comment on above: PATIENT WAS FASTINGP ERFORMED BY: ORTIZ [facility] Rlkihj4665 [facility] [id number] Information: [id number], [id number] Triglyceride mass conc 135 mg/dL Normal 0-149 [facility] Work Phone: Comment on above: PATIENT WAS FASTINGP ERFORMED BY: [facility] Pjaopo6330 [facility] [id number] Information: [id number], [id number] 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 Left ventricular Ejection fraction 70 % Invalid Interpretation Code [facility] Work Phone: Lipid Panel (06427)Ordered B y: Dobie Man on 09-16-2016 Cholesterol in HDL mass conc 44 mg/dL Normal [facility] Work Phone: Comment on above: PATIENT WAS FASTINGP ERFORMED BY: ORTIZ LabAleksandr CroweTflpsl4537 Rodriguez RoadDublin [place] [id number] Cholesterol in LDL mass conc 161 mg/dL Abnormal 0-99 [facility] Work Phone: Comment on above: PATIENT WAS FASTINGP ERFORMED BY: ORTIZ Crowelin6370 [address] RoadDublin [place] [id number] Cholesterol in LDL/Cholesterol in HDL mass ratio 3.7 {ratio_units} Abnormal 0.0-3.2 [facility] Work Phone: Comment on above: LDL/HDL Ratio Men Wo men 1/2 Avg.Risk 1.0 1.5 Avg.Risk 3.6 3.2 2X Avg.Risk 6.2 5.0 3X Avg.Risk 8.0 6.1 PATIENT WAS FASTINGP ERFORMED BY: ORTIZ Crowelin6370 [address] RoadDublin [place] [id number] Cholesterol in VLDL mass conc 28 mg/dL Normal 5-40 [facility] Work Phone: Comment on above: PATIENT WAS FASTINGP ERFORMED BY: ORTIZ Crowelin6[address] RoadDublin [place] [id number] Cholesterol mass conc 233 mg/dL Abnormal 100-199 Com prehensive Internal Medicine Work Phone: Comment on above: PATIENT WAS FASTINGP ERFORMED BY: ORTIZ Crowelin6370 [address] RoadDublin [place] [id number] Triglyceride mass conc 139 mg/dL Normal 0-149 [facility] Work Phone: Comment on above: PATIENT WAS FASTINGP ERFORMED BY: ORTIZ LabAleksandr CroweDoudtn1886 Rodriguez RoadDublin [place] [id number] VITAMIN B-12 (CYANOCOBALAMIN ) (03024)Ordered By: Dobie Man on 09-16-2016 Cobalamin (Vitamin B12) mass conc 788 pg/mL Normal 211-946 [facility] Work Phone: Comment on above: PATIENT WAS FASTINGP ERFORMED BY: ORTIZ LabCoaustyn Cwciqy7733 Rodriguez RoadDublin [place] [id number] CALCIFIDIOL (97889) VIT D 25 Ordered By: Dobie Man on 07-01-2016 25-Hydroxyvitamin D2+25-Hydroxyvitamin D3 mass conc 34.8 ng/mL Normal 30.0-100.0 [facility] Work Phone: Comment on above: Vitamin D deficiency has been defined by the [place] of[place]icine and an Endocrine Society practice guideline as alevel of serum 25-OH vitamin D less than 20 ng/mL (1,2).The Endocrine Society went on to further define vitamin Dinsufficiency as a level between 21 and 29 ng/mL (2).1. IOM ([place] of [employer]). 2010. Dietary reference intakes for calcium and D. [place]: The National Academies Press.2. Allie MF, Emile PONCE, Natalie POOLE, et al. Evaluation, treatment, and prevention of vitamin D deficiency: an Endocrine Society clinical practice guideline. JCEM. 2010; 96(7):1911-30. PATIENT WAS FASTINGP ERFORMED BY: [employer] [employer] [place]in [place] [id number] CBC W/AUTO DIFF WBC (38124)O rdered By: Dobie Man on 07-01-2016 Basophils #/vol (Bld) 0.0 {x10E3/uL} Normal 0.0-0.2 [facility] Work Phone: Comment on above: PATIENT WAS FASTINGP ERFORMED BY: [place] [id number] Basophils/100 WBC (Bld) 0 % Normal [facility] Work Phone: Comment on above: PATIENT WAS FASTINGP ERFORMED BY: [employer] [place]in [place] [id number] Eosinophils #/vol (Bld) 0.1 {x10E3/uL} Normal 0.0-0.4 [facility] Work Phone: Comment on above: PATIENT WAS FASTINGP ERFORMED BY: [employer]in [place] [id number] Eosinophils/100 WBC (Bld) 2 % Normal [facility] Work Phone: Comment on above: PATIENT WAS FASTINGP ERFORMED BY: ORTIZ [facility]6370 [facility] [id number] Erythrocyte distribution width Ratio (RBC) 14.0 % Normal 12.3-15.4 [facility] Work Phone: Comment on above: PATIENT WAS FASTINGP ERFORMED BY: ORTIZ [facility] Olmbes1552 [facility] [id number] Hematocrit Volume Fraction (Bld) 42.4 % Normal 34.0-46.6 [facility] Work Phone: Comment on above: PATIENT WAS FASTINGP ERFORMED BY: ORTIZ [facility] Wtcbkw7090 [facility] [id number] Hemoglobin mass conc (Bld) 14.1 g/dL Normal 11.1-15.9 [facility] Work Phone: Comment on above: PATIENT WAS FASTINGP ERFORMED BY: ORTIZ [facility] Pdjnlp6004 [facility] [id number] Immature granulocytes #/vol (Bld) 0.0 {x10E3/uL} Normal 0.0-0.1 [facility] Work Phone: Comment on above: PATIENT WAS FASTINGP ERFORMED BY: ORTIZ [place] [id number] [facility] [id number] Immature granulocytes/100 WBC (Bld) 0 % Normal [facility] Work Phone: Comment on above: PATIENT WAS FASTINGP ERFORMED BY: ORTIZ [facility]6370 [facility] [id number] Lymphocytes #/vol (Bld) 1.8 {x10E3/uL} Normal 0.7-3.1 [facility] Work Phone: Comment on above: PATIENT WAS FASTINGP ERFORMED BY: ORTIZ [place] 9200970 [facility] [id number] Lymphocytes/100 WBC (Bld) 31 % Normal [facility] Work Phone: Comment on above: PATIENT WAS FASTINGP ERFORMED BY: ORTIZ Chester[address] [facility] [place] [id number] MCH Entitic mass (RBC) 29.7 pg Normal 26.6-33.0 [facility] Internal Medicine Work Phone: Comment on above: PATIENT WAS FASTINGP ERFORMED BY: ORTIZ Chester[address] RoadCarteret Health Carein [place] [id number] MCHC mass conc (RBC) 33.3 g/dL Normal 31.5-35.7 [facility] Internal Medicine Work Phone: Comment on above: PATIENT WAS FASTINGP ERFORMED BY: ORTIZ Crowelin[address] [facility] [id number] MCV Entitic volume (RBC) 89 fL Normal 79-97 [facility] Work Phone: Comment on above: PATIENT WAS FASTINGP ERFORMED BY: ORTIZ Chester6370 [facility] [id number] Monocytes #/vol (Bld) 0.4 {x10E3/uL} Normal 0.1-0.9 [facility] Work Phone: Comment on above: PATIENT WAS FASTINGP ERFORMED BY: ORTIZ Chester[address] [facility] [id number] Monocytes/100 WBC (Bld) 6 % Normal [facility] Work Phone: Comment on above: PATIENT WAS FASTINGP ERFORMED BY: ORTIZ Crowelin[address] [facility] [id number] Neutrophils #/vol (Bld) 3.7 {x10E3/uL} Normal 1.4-7.0 [facility] Work Phone: Comment on above: PATIENT WAS FASTINGP ERFORMED BY: ORTIZ LabAleksandr CroweIewwfx3[address] [facility] [id number] Neutrophils/100 WBC (Bld) 61 % Normal [facility] Work Phone: Comment on above: PATIENT WAS FASTINGP ERFORMED BY: ORTIZ Crowelin[address] [facility] [place] [id number] Platelets #/vol (Bld) 221 {x10E3/uL} Normal 150-379 [facility] Work Phone: Comment on above: PATIENT WAS FASTINGP ERFORMED BY: ORTIZ Hou Hbpywd6081 [facility] [id number] RBC #/vol (Bld) 4.75 {x10E6/uL} Normal 3.77-5.28 Comp [facility] centerensive Internal [facility] Work Phone: Comment on above: PATIENT WAS FASTINGP ERFORMED BY: ORTIZ [facility] Uicllx8997 [facility] [id number] WBC #/vol (Bld) 6.0 {x10E3/uL} Normal 3.4-10.8 [facility] Internal Medicine Work Phone: Comment on above: PATIENT WAS FASTINGP ERFORMED BY: ORTIZ Ameya Gxbbjz2765 [facility] [id number] LIPID PANEL ([id number])Ordered B y: Dobie Man on 07-01-2016 Cholesterol in HDL mass conc 41 mg/dL Normal [facility] Work Phone: Comment on above: According to ATP-III Guidelines, HDL-C >59 mg/dL is considered anegative risk factor for CHD. PATIENT WAS FASTINGP ERFORMED BY: ORTIZ Nilda Crowelin6370 [facility] [id number] Cholesterol in LDL mass conc 129 mg/dL Abnormal 0-99 [facility] Work Phone: Comment on above: PATIENT WAS FASTINGP ERFORMED BY: ORTIZ [place] 9200970 [facility] [id number] Cholesterol in LDL/Cholesterol in HDL mass ratio 3.1 {ratio_units} Normal 0.0-3.2 [facility] Work Phone: Comment on above: LDL/HDL Ratio Men Wo men 1/2 Avg.Risk 1.0 1.5 Avg.Risk 3.6 3.2 2X Avg.Risk 6.2 5.0 3X Avg.Risk 8.0 6.1 PATIENT WAS FASTINGP ERFORMED BY: [place] [id number] [facility] [id number] Cholesterol in VLDL mass conc 45 mg/dL Abnormal 5-40 [facility] Work Phone: Comment on above: PATIENT WAS FASTINGP ERFORMED BY: ORTIZ LabAleksandr CroweZiwlvs5905 [facility] [id number] Cholesterol mass conc 215 mg/dL Abnormal 100-199 Com prehensive Internal Medicine Work Phone: Comment on above: PATIENT WAS FASTINGP ERFORMED BY: ORTIZ LabCoaustyn CroweQgszfl2627 [facility] [id number] Triglyceride mass conc 223 mg/dL Abnormal 0-149 Co [facility]alehensive [facility] Work Phone: Comment on above: PATIENT WAS FASTINGP ERFORMED BY: ORTIZ LabAleksandr CroweRbidbp8634 [facility] [id number] METABOLIC PANEL, COMPREHENSI VE (51707)Ordered By: Dobie Man on 07-01-2016 Albumin mass conc 4.1 g/dL Normal 3.5-4.8 Compreh [facility] Internal Medicine Work Phone: Comment on above: PATIENT WAS FASTINGP ERFORMED BY: ORTIZ [facility] Jyuwrc9953 [facility] [id number] Albumin/Globulin mass ratio 1.6 {ratio} Normal 1.1-2.5 [facility] Internal Medicine Work Phone: Comment on above: PATIENT WAS FASTINGP ERFORMED BY: ORTIZ [facility] Vkonnz1501 [facility] [id number] ALP enzyme act/vol 98 [iU]/L Normal 39-117 [facility] Internal [facility] Work Phone: Comment on above: PATIENT WAS FASTINGP ERFORMED BY: ORTIZ [facility] Miwaqa1104 [address] [facility] [id number] ALT enzyme act/vol 11 [iU]/L Normal 0-32 [facility] Internal Medicine Work Phone: Comment on above: PATIENT WAS FASTINGP ERFORMED BY: ORTIZ [facility] Rfnucw9345 [facility] [id number] AST enzyme act/vol 17 [iU]/L Normal 0-[address] [facility] Internal Medicine Work Phone: Comment on above: PATIENT WAS FASTINGP ERFORMED BY: ORTIZ [facility] Kklfgl4600 Rodriguez RoadDublin [place] [id number] Bilirubin mass conc 0.2 mg/dL Normal 0.0-1.2 Compr ensive Internal Medicine Work Phone: Comment on above: PATIENT WAS FASTINGP ERFORMED BY: CB [facility] Guzbla0939 [address] RoadDublin [place] [id number] Calcium mass conc 9.8 mg/dL Normal 8.7-10.3 Compreh bannerive Internal Medicine Work Phone: Comment on above: PATIENT WAS FASTINGP ERFORMED BY: CB [facility] Rroxhs8594 Rodriguez Roadblin [place] [id number] Chloride molar conc 101 mmol/L Normal 97-106 Compr [facility] Internal Medicine Work Phone: Comment on above: Please note refere nce interval change PATIENT WAS FASTINGP ERFORMED BY: ORTIZ [facility] Habuxr9534 Rodriguez Roadblin [place] [id number] CO2 molar conc 27 mmol/L Normal 18-29 Comprehens trupti Internal Medicine Work Phone: Comment on above: PATIENT WAS FASTINGP ERFORMED BY: ORTIZ [facility] Dbgjpm9235 [address] [facility] [id number] Creatinine mass conc 0.89 mg/dL Normal 0.57-1.00 Comp [facility] Internal Medicine Work Phone: Comment on above: PATIENT WAS FASTINGP ERFORMED BY: CB [facility] Fcmtvt3915 [address] RoadDublin [place] [id number] GFR/1.73 sq M predicted among blacks CKD-EPI vol rate/area (S/P/Bld) 72 mL/min/1.73 Normal [facility] Work Phone: Comment on above: PATIENT WAS FASTINGP ERFORMED BY: CB [facility] Cczqzj6736 [address] RoadDublin [place] [id number] GFR/1.73 sq M predicted among non-blacks CKD-EPI vol rate/area (S/P/Bld) 63 mL/min/1.73 Normal Comprehensiv e Internal Medicine Work Phone: Comment on above: PATIENT WAS FASTINGP ERFORMED BY: ORTIZ LabCoaustyn Ryjdpn0431 [address] [facility] [id number] Globulin mass conc (S) 2.5 g/dL Normal 1.5-4.5 Co mprehensive Internal Medicine Work Phone: Comment on above: PATIENT WAS FASTINGP ERFORMED BY: CB [facility] Bokygy4615 [address] [facility] [id number] Glucose mass conc 92 mg/dL Normal 65-99 Compreh ensive Internal Medicine Work Phone: Comment on above: PATIENT WAS FASTINGP ERFORMED BY: ORTIZ [facility] Zzzbzc3292 [address] [facility] [id number] Potassium molar conc 5.0 mmol/L Normal 3.5-5.2 Comp rehensive Internal Medicine Work Phone: Comment on above: Please note refere nce interval change PATIENT WAS FASTINGP ERFORMED BY: ORTIZ [facility] Rjgfrn3581 [address] [facility] [place] [id number] Protein mass conc 6.6 g/dL Normal 6.0-8.5 Compreh ensive Internal Medicine Work Phone: Comment on above: PATIENT WAS FASTINGP ERFORMED BY: [facility] Ecjucy2178 [address] [facility] [id number] Sodium molar conc 143 mmol/L Normal 136-144 Compreh ensive Internal Medicine Work Phone: Comment on above: Please note refere nce interval change PATIENT WAS FASTINGP ERFORMED BY: [facility] Txjwqc5017 [address] [facility] [place] [id number] Urea nitrogen mass conc 9 mg/dL Normal 8-27 [facility] Work Phone: Comment on above: PATIENT WAS FASTINGP ERFORMED BY: [facility] Ndxxcp8281 [address] [facility] [place] [id number] Urea nitrogen/Creatinine mass ratio 10 mg/mg Abnormal 11-26 [facility] Work Phone: Comment on above: PATIENT WAS FASTINGP ERFORMED BY: ORTIZ [facility] Nwabaq8649 [address] RoadDublin [place] [id number] MICROALBUMINOrdered By: Zscaler Barrel Handler on 07-01-2016 Albumin DL <= 20 mg/L mass conc (U) 5.9 ug/mL Normal [facility] Work Phone: Comment on above: PATIENT WAS FASTINGP ERFORMED BY: ORTIZ [facility] Rwvxlq5482 [address] RoadDublin [place] [id number] Albumin/Creatinine mass ratio (U) 4.3 {mg/g_creat} Normal 0.0-30.0 [facility] Work Phone: Comment on above: PATIENT WAS FASTINGP ERFORMED BY: ORTIZ [facility] Mwvtnj1056 [address] RoadDublin [place] [id number] Creatinine mass conc (U) 138.1 mg/dL Normal [facility] Work Phone: Comment on above: PATIENT WAS FASTINGP ERFORMED BY: ORTIZ [facility] Ademhk5272 [address] RoadDublin [place] [id number] TSH (10147)Ordered By: Samantha Barrel Handler on 07-01-2016 Thyrotropin Qn 3.470 {uIU/mL} Normal 0.450-4.50 0 [facility] Work Phone: Comment on above: PATIENT WAS FASTINGP ERFORMED BY: ORTIZ [facility] Ugzrig3034 Rodriguez RoadDublin [place] [id number] URINALYSIS, W/ MICRO (27307) Ordered By: Dobie Man on 07-01-2016 Appearance Nom (U) Clear Normal Compre hensive Internal Medicine Work Phone: Comment on above: PATIENT WAS FASTINGP ERFORMED BY: ORTIZ [facility] Axwlxw3571 [address] RoadDublin [place] [id number] Bilirubin Ql (U) Negative Normal Comprehe nsive Internal Medicine Work Phone: Comment on above: PATIENT WAS FASTINGP ERFORMED BY: ORTIZ [facility] Epbjjw8497 [address] RoadDublin [place] [id number] Color Nom (U) Yellow Normal Comprehensi ve Internal Medicine Work Phone: Comment on above: PATIENT WAS FASTINGP ERFORMED BY: ORTIZ Chester6[address] RoadDublin [place] [id number] Glucose Ql (U) Negative Normal Comprehens trupti Internal Medicine Work Phone: Comment on above: PATIENT WAS FASTINGP ERFORMED BY: ORTIZ Chester6[address] RoadDublin [place] [id number] Hemoglobin Ql (U) Negative Normal Compreh ensive Internal Medicine Work Phone: Comment on above: PATIENT WAS FASTINGP ERFORMED BY: ORTIZ Chester6[address] RoadDublin [place] [id number] Ketones Ql (U) Negative Normal Comprehens trupti Internal Medicine Work Phone: Comment on above: PATIENT WAS FASTINGP ERFORMED BY: ORTIZ Chester6[address]Dublin [place] [id number] Leukocyte esterase Test strip Ql (U) Negative Normal [facility] Work Phone: Comment on above: PATIENT WAS FASTINGP ERFORMED BY: ORTIZ Chester[address]Dublin [place] [id number] Microscopic observation LM Nom (Urine sed) MICRON Normal [facility] Work Phone: Comment on above: Microscopic follows if indicated. PATIENT WAS FASTINGP ERFORMED BY: ORTIZ Chester6[address] RoadDublin [place] [id number] Microscopic observation LM Nom (Urine sed) See below: Normal [facility] Work Phone: Comment on above: Microscopic was derrick cated and was performed. PATIENT WAS FASTINGP ERFORMED BY: ORTIZ Crowelin6[address] RoadDublin [place] [id number] Nitrite Ql (U) Negative Normal Comprehens trupti Internal Medicine Work Phone: Comment on above: PATIENT WAS FASTINGP ERFORMED BY: ORTIZ Crowelin6[address]Dublin [place] [id number] pH (U) 5.5 [pH] Normal 5.0-7.5 [facility] Work Phone: Comment on above: PATIENT WAS FASTINGP ERFORMED BY: ORTIZ Chester[address] [place] [id number] Protein Ql (U) Negative Normal Comprehens trupti Internal Medicine Work Phone: Comment on above: PATIENT WAS FASTINGP ERFORMED BY: ORTIZ Crowelin6[address] [facility] [id number] Specific gravity Relative Density (U) 1.016 1 Normal 1.005-1.03 0 [facility] Work Phone: Comment on above: PATIENT WAS FASTINGP ERFORMED BY: ORTIZ Crowelin[address] [place] [id number] Urobilinogen Test strip mass conc (U) 0.2 mg/dL Normal 0.2-1.0 Comprehensiv e Internal Medicine Work Phone: Comment on above: PATIENT WAS FASTINGP ERFORMED BY: ORTIZ [facility] Gkfsmf1887 [address] [facility] [id number] VITAMIN B-12 (CYANOCOBALAMIN ) ([id number])Ordered By: Dobie Man on 07-01-2016 Cobalamin (Vitamin B12) mass conc 861 pg/mL Normal 211-946 [facility] Work Phone: Comment on above: PATIENT WAS FASTINGP ERFORMED BY: ORTIZ [facility] Iqnucx5386 [address] [facility] [place] [id number] CALCIFIDIOL (09471) VIT D 25 Ordered By: Dobie Man on 12-05-2015 25-Hydroxyvitamin D2+25-Hydroxyvitamin D3 mass conc 40.5 ng/mL Normal 30.0-100.0 [facility] Work Phone: Comment on above: Vitamin D deficiency has been defined by the [place] of[place]icine and an Endocrine Society practice guideline as alevel of serum 25-OH vitamin D less than 20 ng/mL (1,2).The Endocrine Society went on to further define vitamin Dinsufficiency as a level between 21 and 29 ng/mL (2).1. IOM ([place] of [employer]). 2010. Dietary reference intakes for calcium and D. [place]: The National Academies Press.2. Allie MF, Emile [place], Natalie POOLE, et al. Evaluation, treatment, and prevention of vitamin D deficiency: an Endocrine Society clinical practice guideline. JCEM. 2010; 96(7):1911-30. PATIENT WAS FASTINGP ERFORMED BY: [facility] Wlbcbb5414 Rodriguez RoadDublin [place] [id number] CBC W/AUTO DIFF WBC (31207)O rdered By: Dobie Man on 12-05-2015 Basophils #/vol (Bld) 0.0 {x10E3/uL} Normal 0.0-0.2 [facility] Work Phone: Comment on above: PATIENT WAS FASTINGP ERFORMED BY: [facility] Qkpmbc9076 Rodriguez RoadDublin [place] [id number] Information: [id number] Basophils/100 WBC (Bld) 1 % Normal [facility] Work Phone: Comment on above: PATIENT WAS FASTINGP ERFORMED BY: [facility] Guqskc7502 Rodriguez RoadDublin [place] [id number] Information: [id number] Eosinophils #/vol (Bld) 0.2 {x10E3/uL} Normal 0.0-0.4 [facility] Work Phone: Comment on above: PATIENT WAS FASTINGP ERFORMED BY: [facility] Sytdvm2182 Rodriguez Roadblin [place] [id number] Information: [id number] Eosinophils/100 WBC (Bld) 4 % Normal [facility] Work Phone: Comment on above: PATIENT WAS FASTINGP ERFORMED BY: [facility] Gexunw8506 Rodriguez RoadDublin [place] [id number] Information: [id number] Erythrocyte distribution width Ratio (RBC) 13.7 % Normal 12.3-15.4 [facility] Work Phone: Comment on above: PATIENT WAS FASTINGP ERFORMED BY: [facility] Yfiyyy4166 Rodriguez RoadDublin [place] [id number] Information: [id number] Hematocrit Volume Fraction (Bld) 40.2 % Normal 34.0-46.6 [facility] Work Phone: Comment on above: PATIENT WAS FASTINGP ERFORMED BY: [place] 2232070 [facility] [id number] Information: [id number] Hemoglobin mass conc (Bld) 13.6 g/dL Normal 11.1-15.9 [facility] Work Phone: Comment on above: PATIENT WAS FASTINGP ERFORMED BY: [address] [id number] Information: [id number] Immature granulocytes #/vol (Bld) 0.0 {x10E3/uL} Normal 0.0-0.1 [facility] Work Phone: Comment on above: PATIENT WAS FASTINGP ERFORMED BY: [place] 2232070 [facility] [id number] Information: [id number] Immature granulocytes/100 WBC (Bld) 0 % Normal [facility] Work Phone: Comment on above: PATIENT WAS FASTINGP ERFORMED BY: [address] [id number] Information: [id number] Lymphocytes #/vol (Bld) 1.2 {x10E3/uL} Normal 0.7-3.1 [facility] Work Phone: Comment on above: PATIENT WAS FASTINGP ERFORMED BY: [place] 2232070 [facility] [id number] Information: [id number] Lymphocytes/100 WBC (Bld) 26 % Normal [facility] Work Phone: Comment on above: PATIENT WAS FASTINGP ERFORMED BY: [address] [id number] Information: [id number] MCH Entitic mass (RBC) 30.0 pg Normal 26.6-33.0 [facility] Internal Medicine Work Phone: Comment on above: PATIENT WAS FASTINGP ERFORMED BY: [place] [id number] [facility] [id number] Information: [id number] MCHC mass conc (RBC) 33.8 g/dL Normal 31.5-35.7 [facility] Internal Medicine Work Phone: Comment on above: PATIENT WAS FASTINGP ERFORMED BY: [place] 2232070 [facility] [id number] Information: [id number] MCV Entitic volume (RBC) 89 fL Normal 79-97 [facility] Internal Medicine Work Phone: Comment on above: PATIENT WAS FASTINGP ERFORMED BY: [address] [id number] Information: [id number] Monocytes #/vol (Bld) 0.5 {x10E3/uL} Normal 0.1-0.9 [facility] Work Phone: Comment on above: PATIENT WAS FASTINGP ERFORMED BY: [address] [id number] Information: [id number] Monocytes/100 WBC (Bld) 10 % Normal [facility] Work Phone: Comment on above: PATIENT WAS FASTINGP ERFORMED BY: [address] [id number] Information: [id number] Neutrophils #/vol (Bld) 2.7 {x10E3/uL} Normal 1.4-7.0 [facility] Work Phone: Comment on above: PATIENT WAS FASTINGP ERFORMED BY: [place] [id number] [facility] [id number] Information: [id number] Neutrophils/100 WBC (Bld) 59 % Normal [facility] Work Phone: Comment on above: PATIENT WAS FASTINGP ERFORMED BY: ORTIZ Chester6370 [facility] [id number] Information: [id number] Platelets #/vol (Bld) 206 {x10E3/uL} Normal 150-379 [facility] Work Phone: Comment on above: PATIENT WAS FASTINGP ERFORMED BY: ORTIZ Hou Lghinw1118 [facility] [id number] Information: [id number] RBC #/vol (Bld) 4.54 {x10E6/uL} Normal 3.77-5.28 [facility] Internal Medicine Work Phone: Comment on above: PATIENT WAS FASTINGP ERFORMED BY: ORTIZ Ameya Fnzmwq2419 [facility] [id number] Information: [id number] WBC #/vol (Bld) 4.5 {x10E3/uL} Normal 3.4-10.8 [facility] Internal Medicine Work Phone: Comment on above: PATIENT WAS FASTINGP ERFORMED BY: ORTIZ Chester6370 [facility] [id number] Information: [id number] LIPID PANEL ([id number])Ordered B y: Dobie Man on 12-05-2015 Cholesterol in HDL mass conc 46 mg/dL Normal [facility] Work Phone: Comment on above: According to ATP-III Guidelines, HDL-C >59 mg/dL is considered anegative risk factor for CHD. PATIENT WAS FASTINGP ERFORMED BY: ORTIZ [facility] Pdrwey1331 [facility] [id number] Cholesterol in LDL mass conc 126 mg/dL Abnormal 0-99 [facility] Work Phone: Comment on above: PATIENT WAS FASTINGP ERFORMED BY: ORTIZ MeenaSaint [facility] Center Vnncsg2082 [facility] [id number] Cholesterol in LDL/Cholesterol in HDL mass ratio 2.7 {ratio_units} Normal 0.0-3.2 [facility] Work Phone: Comment on above: LDL/HDL Ratio Men Wo men 1/2 Avg.Risk 1.0 1.5 Avg.Risk 3.6 3.2 2X Avg.Risk 6.2 5.0 3X Avg.Risk 8.0 6.1 PATIENT WAS FASTINGP ERFORMED BY: ORTIZ LabCoaustyn Pczwyt9[address] [place] [id number] Cholesterol in VLDL mass conc 31 mg/dL Normal 5-40 [facility] Work Phone: Comment on above: PATIENT WAS FASTINGP ERFORMED BY: ORTIZ LabCoaustyn CroweYmlghk6261 [place] [id number] Cholesterol mass conc 203 mg/dL Abnormal 100-199 Com prehensive Internal Medicine Work Phone: Comment on above: PATIENT WAS FASTINGP ERFORMED BY: ORTIZ LabCoaustyn CroweLnvhns4130 Tehnologii obratnyh zadachSelect [facility] [id number] Triglyceride mass conc 156 mg/dL Abnormal 0-149 Co [facility] hospitalehensive Internal Medicine Work Phone: Comment on above: PATIENT WAS FASTINGP ERFORMED BY: ORTIZ LabCoaustyn Qkxzxm7775 Rodriguez ShipwireSelect [facility] [id number] METABOLIC PANEL, COMPREHENSI VE ([id number])Ordered By: Dobie Man on 12-05-2015 Albumin mass conc 4.2 g/dL Normal 3.5-4.8 Compreh ensive Internal Medicine Work Phone: Comment on above: PATIENT WAS FASTINGP ERFORMED BY: ORTIZ [facility] Xpnkeo2017 Rodriguez ShipwireSelect [facility] [id number] Albumin/Globulin mass ratio 1.8 {ratio} Normal 1.1-2.5 [facility] Work Phone: Comment on above: PATIENT WAS FASTINGP ERFORMED BY: ORTIZ LabCoaustyn Sounyr4762 Rodirguez LagotekNovant Health / N[facility] [id number] ALP enzyme act/vol 71 [iU]/L Normal 39-117 Compre [facility] Internal Medicine Work Phone: Comment on above: PATIENT WAS FASTINGP ERFORMED BY: ORTIZ [facility] Jlmqpm3063 Rodriguez RoadDublin [place] [id number] ALT enzyme act/vol 10 [iU]/L Normal 0-32 [facility] Internal Medicine Work Phone: Comment on above: PATIENT WAS FASTINGP ERFORMED BY: ORTIZ [facility] Wqmilk5235 Rodriguez RoadDublin [place] [id number] AST enzyme act/vol 17 [iU]/L Normal 0-40 [facility] Internal Medicine Work Phone: Comment on above: PATIENT WAS FASTINGP ERFORMED BY: ORTIZ [facility] Xgklon4227 Rodriguez RoadDublin [place] [id number] Bilirubin mass conc 0.4 mg/dL Normal 0.0-1.2 [facility] Internal Medicine Work Phone: Comment on above: PATIENT WAS FASTINGP ERFORMED BY: ORTIZ [facility] Wmjigw5230 Rodriguez RoadDublin [place] [id number] Calcium mass conc 9.5 mg/dL Normal 8.7-10.3 Compreh [facility] Internal Medicine Work Phone: Comment on above: PATIENT WAS FASTINGP ERFORMED BY: ORTIZ [facility] Memiwb7318 Rodriguez RoadDublin [place] [id number] Chloride molar conc 106 mmol/L Normal 97-108 [facility] Internal Medicine Work Phone: Comment on above: PATIENT WAS FASTINGP ERFORMED BY: ORTIZ [facility] Ifbtje0633 Rodriguez RoadDublin [place] [id number] CO2 molar conc 25 mmol/L Normal 18-29 [facility] Internal Medicine Work Phone: Comment on above: PATIENT WAS FASTINGP ERFORMED BY: ORTIZ [facility] Nlscvn2266 Rodriguez RoadDublin [place] [id number] Creatinine mass conc 0.92 mg/dL Normal 0.57-1.00 [facility] Internal Medicine Work Phone: Comment on above: PATIENT WAS FASTINGP ERFORMED BY: ORTIZ [facility] Jefubc7768 Rodriguez RoadDublin [place] [id number] GFR/1.73 sq M predicted among blacks CKD-EPI vol rate/area (S/P/Bld) 70 mL/min/1.73 Normal [facility] Work Phone: Comment on above: PATIENT WAS FASTINGP ERFORMED BY: ORTIZ [facility] Ddwicj5576 Rodriguez [facility] [place] [id number] GFR/1.73 sq M predicted among non-blacks CKD-EPI vol rate/area (S/P/Bld) 61 mL/min/1.73 Normal Comprehensiv e Internal Medicine Work Phone: Comment on above: PATIENT WAS FASTINGP ERFORMED BY: ORTIZ [facility] Ujykwh6824 Rodriguez [facility] [place] [id number] Globulin mass conc (S) 2.3 g/dL Normal 1.5-4.5 Co mprehensive Internal Medicine Work Phone: Comment on above: PATIENT WAS FASTINGP ERFORMED BY: ORTIZ [facility] Utjbga9801 [facility] [id number] Glucose mass conc 84 mg/dL Normal 65-99 Compreh ensive Internal Medicine Work Phone: Comment on above: PATIENT WAS FASTINGP ERFORMED BY: ORTIZ [facility] Fgqhck6292 Rodriguez [facility] [id number] Potassium molar conc 4.6 mmol/L Normal 3.5-5.2 Comp rehensive Internal Medicine Work Phone: Comment on above: PATIENT WAS FASTINGP ERFORMED BY: ORTIZ [facility] Lhlrik5120 [facility] [id number] Protein mass conc 6.5 g/dL Normal 6.0-8.5 Compreh ensive Internal Medicine Work Phone: Comment on above: PATIENT WAS FASTINGP ERFORMED BY: ORTIZ [facility] Qpdtqt1505 Rodriguez [facility] [id number] Sodium molar conc 145 mmol/L Abnormal 134-144 Compreh ensive Internal Medicine Work Phone: Comment on above: PATIENT WAS FASTINGP ERFORMED BY: ORTIZ [facility] Xrhmvg4424 Rodriguez [facility] [id number] Urea nitrogen mass conc 16 mg/dL Normal 8-27 [facility] Work Phone: Comment on above: PATIENT WAS FASTINGP ERFORMED BY: ORTIZ LabCoaustyn Zwafdk8154 [address] [place] [id number] Urea nitrogen/Creatinine mass ratio 17 mg/mg Normal 11-26 [facility] Work Phone: Comment on above: PATIENT WAS FASTINGP ERFORMED BY: ORTIZ [facility] Gexkdx0456 [address]bl[address] [place] [id number] MICROALBUMINOrdered By: Zscaler em Barrel Handler on 12-05-2015 Albumin DL <= 20 mg/L mass conc (U) 25.6 ug/mL Abnormal 0.0-17.0 [facility] Work Phone: Comment on above: PATIENT WAS FASTINGP ERFORMED BY: ORTIZ LabSaint [facility] Nzoomw4024 [address]bl[address] [place] [id number] Albumin/Creatinine mass ratio (U) 9.3 {mg/g_creat} Normal 0.0-30.0 [facility] Work Phone: Comment on above: PATIENT WAS FASTINGP ERFORMED BY: ORTIZ LabCo Zwilts0938 [address] [facility] [place] [id number] Creatinine mass conc (U) 276.5 mg/dL Normal 15.0-278.0 [facility] Work Phone: Comment on above: PATIENT WAS FASTINGP ERFORMED BY: ORTIZ LabSaint [facility] Center Facsnh7045 Rodriguez [facility] [id number] TSH ([id number])Ordered By: Syste m Barrel Handler on 12-05-2015 Thyrotropin Qn 1.330 {uIU/mL} Normal 0.450-4.50 0 [facility] Work Phone: Comment on above: PATIENT WAS FASTINGP ERFORMED BY: ORTIZ LabCo Jsuufd9506 Rodriguez [facility] [id number] URINALYSIS, W/ MICRO ([id number]) Ordered By: Dobie Man on 12-05-2015 Appearance Nom (U) Clear Normal Compre [facility] Internal Medicine Work Phone: Comment on above: PATIENT WAS FASTINGP ERFORMED BY: ORTIZ Crowelin6370 Rodriguez RoadDublin [place] [id number] Bilirubin Ql (U) Negative Normal Comprehe nsive Internal Medicine Work Phone: Comment on above: PATIENT WAS FASTINGP ERFORMED BY: ORTIZ MeenaAleksandr CroweKpbpio0048 Rodriguez RoadDublin [place] [id number] Color Nom (U) Yellow Normal Comprehensi ve Internal Medicine Work Phone: Comment on above: PATIENT WAS FASTINGP ERFORMED BY: ORTIZ Crowelin6370 [address] RoadDublin [place] [id number] Glucose Ql (U) Negative Normal Comprehens trupti Internal Medicine Work Phone: Comment on above: PATIENT WAS FASTINGP ERFORMED BY: ORTIZ Crowelin6370 [address] RoadDublin [place] [id number] Hemoglobin Ql (U) Negative Normal Compreh ensive Internal Medicine Work Phone: Comment on above: PATIENT WAS FASTINGP ERFORMED BY: ORTIZ Crowelin6370 [address] RoadDublin [place] [id number] Ketones Ql (U) Negative Normal Comprehens trupti Internal Medicine Work Phone: Comment on above: PATIENT WAS FASTINGP ERFORMED BY: ORTIZ Crowelin6370 Rodriguez [facility]in [place] [id number] Leukocyte esterase Test strip Ql (U) Negative Normal [facility] Work Phone: Comment on above: PATIENT WAS FASTINGP ERFORMED BY: ORTIZ Crowelin6370 [address] Roadblin [place] [id number] Microscopic observation LM Nom (Urine sed) See below: Normal [facility] Work Phone: Comment on above: Microscopic was derrick cated and was performed. PATIENT WAS FASTINGP ERFORMED BY: ORTIZ Crowelin6370 [address] RoadDublin [place] [id number] Nitrite Ql (U) Negative Normal Comprehens trupti Internal Medicine Work Phone: Comment on above: PATIENT WAS FASTINGP ERFORMED BY: ORTIZ RobledoSaint [facility] Yumorj4452 Rodriguez RoadBartley [place] [id number] pH (U) 5.5 [pH] Normal 5.0-7.5 [facility] Work Phone: Comment on above: PATIENT WAS FASTINGP ERFORMED BY: ORTIZ MeenaPromedica [facility] Hospital6370 [address] [facility] [place] [id number] Protein Ql (U) 1+ Abnormal Comprehens trupti Internal Medicine Work Phone: Comment on above: PATIENT WAS FASTINGP ERFORMED BY: ORTIZ [facility]6370 [facility] [id number] Specific gravity Relative Density (U) 1.029 1 Normal 1.005-1.03 0 [facility] Work Phone: Comment on above: PATIENT WAS FASTINGP ERFORMED BY: ORTIZ [facility]6370 [facility] [id number] Urobilinogen Test strip mass conc (U) 0.2 mg/dL Normal 0.2-1.0 Comprehensiv e Internal Medicine Work Phone: Comment on above: PATIENT WAS FASTINGP ERFORMED BY: ORTIZ LabPromedica [facility] Hospital6370 [facility] [id number] VITAMIN B-12 (CYANOCOBALAMIN ) ([id number])Ordered By: Dobie Man on 12-05-2015 Cobalamin (Vitamin B12) mass conc 465 pg/mL Normal 211-946 [facility] Work Phone: Comment on above: PATIENT WAS FASTINGP ERFORMED BY: LabPromedica [facility] Hospital6370 [facility] [id number] Fecal Occult Blood , Office ([id number])Ordered By: Gabino Bullock on 11-08-2015 Hemoglobin.gastrointes tinal Ql (St) Negative Normal [facility] Work Phone: VITAMIN B-12 (CYANOCOBALAMIN ) ([id number])Ordered By: Dobie Man on 08-27-2015 Cobalamin (Vitamin B12) mass conc 919 pg/mL Normal 211-946 [facility] Work Phone: Comment on above: PATIENT NOT FASTINGP ERFORMED BY: [facility]6370 [facility] [id number] Information: [id number] 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 Anion gap 6 mmol/L Invalid Interpretation Code [facility] Work Phone: basophils as percent of blood leukocytes, manual count 0.5 % Invalid Interpretation Code [facility] Work Phone: BUN/Creatinine Ratio 18.8 mg/mg Invalid Interpretation Code [facility] Work Phone: Calcium 8.9 mg/dL Invalid Interpretation Code [facility] Work Phone: Chloride 106 mmol/L Invalid Interpretation Code [facility] Work Phone: CO2 31.0 mmol/L Invalid Interpretation Code [facility] Work Phone: Creatinine 0.85 mg/dL Invalid Interpretation Code [employer] Work Phone: eosinophils as percent of blood leukocytes, manual count 5.4 % High [facility] Work Phone: Erythrocytes (RBC) 4.14 10*6/uL Low thrdPlace ter [facility] Work Phone: Glucose 102 mg/dL Invalid Interpretation Code [facility] Work Phone: Hematocrit (HCT) 38.6 % Invalid Interpretation Code [facility] Work Phone: Hemoglobin (HGB) 12.6 g/dL Invalid Interpretation Code [facility] Work Phone: Lymphocytes/100 leukocytes 27.3 % Invalid Interpretation Code [facility] Work Phone: MCH 30.4 pg Invalid Interpretation Code [facility] Work Phone: MCHC 32.6 g/dL Invalid Interpretation Code [facility] Work Phone: MCV 93.2 fL Invalid Interpretation Code [facility] Work Phone: Monocytes/100 leukocytes 10.2 % High [facility] Work Phone: neutrophils, band form as percent of blood leukocytes, manual count 56.4 % Invalid Interpretation Code [employer] Work Phone: Platelets 162 10*3/mm3 Invalid Interpretation Code [facility] Work Phone: PMV by Bernard 9.6 fL Invalid Interpretation Code [employer] Work Phone: Potassium 4.3 mmol/L Invalid Interpretation Code [facility] Work Phone: RDW-CA 12.9 % Invalid Interpretation Code [facility] Work Phone: Sodium 143 mmol/L Invalid Interpretation Code [facility] Work Phone: Urea nitrogen 16 mg/dL Invalid Interpretation Code [facility] Work Phone: WBC (Leukocytes) 6.3 10*3/uL Invalid Interpretation Code [employer] Work Phone: 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 Cholesterol 136 mg/dL Invalid Interpretation Code [employer] Work Phone: HDL Cholesterol 49 mg/dL Invalid Interpretation Code [facility] Work Phone: LDL Cholesterol 66 mg/dL Invalid Interpretation Code [facility] Work Phone: Triglyceride 105 mg/dL Invalid Interpretation Code [facility] Work Phone: very low density lipoproteins 21 mg/dL Invalid Interpretation Code [employer] Work Phone: CBC W/AUTO DIFF WBC ([id number])O rdered By: Dobie Man on 10-19-2014 Basophils #/vol (Bld) 0.0 {x10E3/uL} Normal 0.0-0.2 [facility] Work Phone: Comment on above: PATIENT WAS FASTINGP ERFORMED BY: ORTIZ [employer]Co NotaryAct Armstrong LagotekNovant Health / NHRMC [id number] Information: [id number] Basophils/100 WBC (Bld) 1 % Normal [facility] Work Phone: Comment on above: PATIENT WAS FASTINGP ERFORMED BY: ORTIZ [employer] Rodriguez ShipwireSelect Specialty Hospital [facility] [id number] Information: [id number] Eosinophils #/vol (Bld) 0.2 {x10E3/uL} Normal 0.0-0.4 [facility] Work Phone: Comment on above: PATIENT WAS FASTINGP ERFORMED BY: [place] 2232070 [facility] [id number] Information: [id number] Eosinophils/100 WBC (Bld) 5 % Normal [facility] Work Phone: Comment on above: PATIENT WAS FASTINGP ERFORMED BY: [address] [id number] Information: [id number] Erythrocyte distribution width Ratio (RBC) 13.5 % Normal 12.3-15.4 [facility] Work Phone: Comment on above: PATIENT WAS FASTINGP ERFORMED BY: [address] [id number] Information: [id number] Hematocrit Volume Fraction (Bld) 39.1 % Normal 34.0-46.6 [facility] Work Phone: Comment on above: PATIENT WAS FASTINGP ERFORMED BY: [address] [id number] Information: [id number] Hemoglobin mass conc (Bld) 12.9 g/dL Normal 11.1-15.9 [facility] Work Phone: Comment on above: PATIENT WAS FASTINGP ERFORMED BY: [address] [id number] Information: [id number] Immature granulocytes #/vol (Bld) 0.0 {x10E3/uL} Normal 0.0-0.1 [facility] Work Phone: Comment on above: PATIENT WAS FASTINGP ERFORMED BY: [address] [id number] Information: [id number] Immature granulocytes/100 WBC (Bld) 0 % Normal [facility] Work Phone: Comment on above: PATIENT WAS FASTINGP ERFORMED BY: [address] [id number] Information: [id number] Lymphocytes #/vol (Bld) 1.2 {x10E3/uL} Normal 0.7-3.1 [facility] Work Phone: Comment on above: PATIENT WAS FASTINGP ERFORMED BY: [address] [id number] Information: [id number] Lymphocytes/100 WBC (Bld) 25 % Normal [facility] Work Phone: Comment on above: PATIENT WAS FASTINGP ERFORMED BY: [address] [id number] Information: [id number] MCH Entitic mass (RBC) 29.8 pg Normal 26.6-33.0 [facility] Internal Medicine Work Phone: Comment on above: PATIENT WAS FASTINGP ERFORMED BY: [address] [id number] Information: [id number] MCHC mass conc (RBC) 33.0 g/dL Normal 31.5-35.7 [facility] Internal Medicine Work Phone: Comment on above: PATIENT WAS FASTINGP ERFORMED BY: [address] [id number] Information: [id number] MCV Entitic volume (RBC) 90 fL Normal 79-97 [facility] Internal Medicine Work Phone: Comment on above: PATIENT WAS FASTINGP ERFORMED BY: [address] [id number] Information: [id number] Monocytes #/vol (Bld) 0.5 {x10E3/uL} Normal 0.1-0.9 [facility] Work Phone: Comment on above: PATIENT WAS FASTINGP ERFORMED BY: ORTIZ MeenaSaint [facility] Health Center Caqoxe2850 [facility] [id number] Information: [id number] Monocytes/100 WBC (Bld) 10 % Normal [facility] Work Phone: Comment on above: PATIENT WAS FASTINGP ERFORMED BY: [place] 2232070 [facility] [id number] Information: [id number] Neutrophils #/vol (Bld) 2.9 {x10E3/uL} Normal 1.4-7.0 [facility] Work Phone: Comment on above: PATIENT WAS FASTINGP ERFORMED BY: [facility] Tzwylu7319 [facility] [id number] Information: [id number] Neutrophils/100 WBC (Bld) 59 % Normal [facility] Work Phone: Comment on above: PATIENT WAS FASTINGP ERFORMED BY: ORTIZ [facility]6370 [facility] [id number] Information: [id number] Platelets #/vol (Bld) 196 {x10E3/uL} Normal 150-379 [facility] Work Phone: Comment on above: PATIENT WAS FASTINGP ERFORMED BY: [facility]6370 [facility] [id number] Information: [id number] RBC #/vol (Bld) 4.33 {x10E6/uL} Normal 3.77-5.28 [facility] Internal Medicine Work Phone: Comment on above: PATIENT WAS FASTINGP ERFORMED BY: LabPromedica [facility] Hospital6370 [facility] [id number] Information: [id number] WBC #/vol (Bld) 4.9 {x10E3/uL} Normal 3.4-10.8 [facility] Internal Medicine Work Phone: Comment on above: PATIENT WAS FASTINGP ERFORMED BY: ORTIZ [facility] Rgpwkp9472 Rodriguez [facility] [place] [id number] Information: [id number] LIPID PANEL ([id number])Ordered B y: Dobie Man on 10-19-2014 Cholesterol in HDL mass conc 47 mg/dL Normal [facility] Work Phone: Comment on above: According to ATP-III Guidelines, HDL-C >59 mg/dL is considered anegative risk factor for CHD. PATIENT WAS FASTINGP ERFORMED BY: ORTIZ [facility] Kmotnf1178 Rodriguez [facility] [id number] Cholesterol in LDL mass conc 148 mg/dL Abnormal 0-99 [facility] Work Phone: Comment on above: PATIENT WAS FASTINGP ERFORMED BY: ORTIZ LabCoaustyn Pguyuk2777 [facility] [id number] Cholesterol in LDL/Cholesterol in HDL mass ratio 3.1 {ratio_units} Normal 0.0-3.2 [facility] Work Phone: Comment on above: LDL/HDL Ratio Men Wo men 1/2 Avg.Risk 1.0 1.5 Avg.Risk 3.6 3.2 2X Avg.Risk 6.2 5.0 3X Avg.Risk 8.0 6.1 PATIENT WAS FASTINGP ERFORMED BY: ORTIZ [facility] Itlemb0898 [facility] [id number] Cholesterol in VLDL mass conc 36 mg/dL Normal 5-40 [facility] Work Phone: Comment on above: PATIENT WAS FASTINGP ERFORMED BY: ORTIZ [facility] Mnoajt2254 Rodriguez [facility] [id number] Cholesterol mass conc 231 mg/dL Abnormal 100-199 Com prehensive Internal Medicine Work Phone: Comment on above: PATIENT WAS FASTINGP ERFORMED BY: ORTIZ [facility] Jibnyt0179 Rodriguez [facility] [place] [id number] Triglyceride mass conc 179 mg/dL Abnormal 0-149 Co mprehensive Internal Medicine Work Phone: Comment on above: PATIENT WAS FASTINGP ERFORMED BY: ORTIZ [facility] Mewysl2582 Rodriguez RoadDublin [place] [id number] METABOLIC PANEL, COMPREHENSI VE ([id number])Ordered By: Dobie Man on 10-19-2014 Albumin mass conc 4.3 g/dL Normal 3.5-4.8 Compreh ensive Internal Medicine Work Phone: Comment on above: PATIENT WAS FASTINGP ERFORMED BY: ORTIZ [facility] Vyimpo4943 Rodriguez Roadblin [place] [id number] Albumin/Globulin mass ratio 2.2 {ratio} Normal 1.1-2.5 [facility] Work Phone: Comment on above: PATIENT WAS FASTINGP ERFORMED BY: ORTIZ [facility] Lvaltz1747 Rodriguez RoadDublin [place] [id number] ALP enzyme act/vol 73 [iU]/L Normal 39-[address] [facility] Internal Medicine Work Phone: Comment on above: PATIENT WAS FASTINGP ERFORMED BY: ORTIZ LabSaint [facility] Center Auofvt5669 Rodriguez Roadblin [place] [id number] ALT enzyme act/vol 8 [iU]/L Normal 0-[address] [facility] Internal Medicine Work Phone: Comment on above: PATIENT WAS FASTINGP ERFORMED BY: ORTIZ [facility] Bklnzf3050 Rodriguez Roadblin [place] [id number] AST enzyme act/vol 15 [iU]/L Normal 0-[address] [facility] Internal Medicine Work Phone: Comment on above: PATIENT WAS FASTINGP ERFORMED BY: ORTIZ LabSaint [facility] Center Wcumle4578 [address] [facility] Hospitalbl[facility] [place] [id number] Bilirubin mass conc 0.3 mg/dL Normal 0.0-1.2 Compr [facility] Internal Medicine Work Phone: Comment on above: PATIENT WAS FASTINGP ERFORMED BY: ORTIZ [facility] Tgwobo7874 Rodriguez Roadblin [place] [id number] Calcium mass conc 9.6 mg/dL Normal 8.7-10.3 Compreh ensive Internal Medicine Work Phone: Comment on above: PATIENT WAS FASTINGP ERFORMED BY: ORTIZ [facility] Xnoaqv9863 [address] [facility] [id number] Chloride molar conc 99 mmol/L Normal 97-108 Compr ehensive Internal Medicine Work Phone: Comment on above: PATIENT WAS FASTINGP ERFORMED BY: ORTIZ LabKellie Kdydcn3070 [address] [place] [id number] CO2 molar conc 27 mmol/L Normal 18-29 Comprehens trupti Internal Medicine Work Phone: Comment on above: PATIENT WAS FASTINGP ERFORMED BY: ORTIZ LabSaint [facility] Center Xgffax8615 Rodriguez RoadCarteret Health Carein [place] [id number] Creatinine mass conc 0.91 mg/dL Normal 0.57-1.00 Comp [facility] centerensive Internal Medicine Work Phone: Comment on above: PATIENT WAS FASTINGP ERFORMED BY: ORTIZ RobledoSaint [facility] Wysqfo8576 [facility] [id number] GFR/1.73 sq M predicted among blacks CKD-EPI vol rate/area (S/P/Bld) 71 mL/min/1.73 Normal [facility] Work Phone: Comment on above: PATIENT WAS FASTINGP ERFORMED BY: ORTIZ RobledoSaint [facility] Lseyol3154 Rodriguez [facility] [id number] GFR/1.73 sq M predicted among non-blacks CKD-EPI vol rate/area (S/P/Bld) 62 mL/min/1.73 Normal Comprehensiv e Internal Medicine Work Phone: Comment on above: PATIENT WAS FASTINGP ERFORMED BY: ORTIZ [facility] Mrohho9589 [address] [facility] [id number] Globulin mass conc (S) 2.0 g/dL Normal 1.5-4.5 [facility] Work Phone: Comment on above: PATIENT WAS FASTINGP ERFORMED BY: ORTIZ [facility]Saint [facility] Pqnwug0801 [address] [facility] [place] [id number] Glucose mass conc 82 mg/dL Normal 65-99 Compreh ensive Internal Medicine Work Phone: Comment on above: PATIENT WAS FASTINGP ERFORMED BY: ORTIZ LabCo Lylmcb1529 Rodriguez RoadDublin [place] [id number] Potassium molar conc 4.6 mmol/L Normal 3.5-5.2 Comp rehensive Internal Medicine Work Phone: Comment on above: PATIENT WAS FASTINGP ERFORMED BY: ORTIZ [facility] Mkghyw7294 [address] RoadDublin [place] [id number] Protein mass conc 6.3 g/dL Normal 6.0-8.5 Compreh ensive Internal Medicine Work Phone: Comment on above: PATIENT WAS FASTINGP ERFORMED BY: ORTIZ [facility] Pvjguy9832 Rodriguez RoadDublin [place] [id number] Sodium molar conc 141 mmol/L Normal 134-144 Compreh ensive Internal Medicine Work Phone: Comment on above: PATIENT WAS FASTINGP ERFORMED BY: ORTIZ LabCoaustyn CroweKkcnmw1248 Rodriguez RoadDuin [place] [id number] Urea nitrogen mass conc 11 mg/dL Normal 8-27 Comprehensive Internal Medicine Work Phone: Comment on above: PATIENT WAS FASTINGP ERFORMED BY: ORTIZ [facility]Saint [facility] Rvvxss6600 Rodriguez [facility] [place] [id number] Urea nitrogen/Creatinine mass ratio 12 mg/mg Normal 11-26 Comprehensive Internal Medicine Work Phone: Comment on above: PATIENT WAS FASTINGP ERFORMED BY: ORTIZ Hou Wrianx5451 Rodriguez [facility] [place] [id number] MICROALBUMINOrdered By: Syst em Barrel Handler on 10-19-2014 Albumin DL <= 20 mg/L mass conc (U) 10.7 ug/mL Normal 0.0-17.0 [facility] Medicine Work Phone: Comment on above: PATIENT WAS FASTINGP ERFORMED BY: ORTIZ Lab[facility] Aashop8499 [address]Dublin [place] [id number] Albumin/Creatinine mass ratio (U) 8.1 {mg/g_creat} Normal 0.0-30.0 [facility] Internal Medicine Work Phone: Comment on above: PATIENT WAS FASTINGP ERFORMED BY: ORTIZ [facility] Ehmfbw3171 [address] RoadDublin [place] [id number] Creatinine mass conc (U) 132.3 mg/dL Normal 15.0-278.0 [facility] Internal Medicine Work Phone: Comment on above: PATIENT WAS FASTINGP ERFORMED BY: ORTIZ Crowelin6370 [address] [facility] [id number] TSH ([id number])Ordered By: Zscalere m Barrel Handler on 10-19-2014 Thyrotropin Qn 1.170 {uIU/mL} Normal 0.450-4.50 0 [facility] Internal Medicine Work Phone: Comment on above: PATIENT WAS FASTINGP ERFORMED BY: ORTIZ Chester6370 [facility] [id number] URINALYSIS, W/ MICRO ([id number]) Ordered By: Dobie Man on 10-19-2014 Appearance Nom (U) Clear Normal Compre hensive Internal Medicine Work Phone: Comment on above: PATIENT WAS FASTINGP ERFORMED BY: ORTIZ Crowelin6370 [address] [facility] [id number] Bilirubin Ql (U) Negative Normal Comprehe nsive Internal Medicine Work Phone: Comment on above: PATIENT WAS FASTINGP ERFORMED BY: ORTIZ Crowelin6370 [address] [facility] [id number] Color Nom (U) Yellow Normal Comprehensi ve Internal Medicine Work Phone: Comment on above: PATIENT WAS FASTINGP ERFORMED BY: ORTIZ Crowelin6370 [address] [facility] [id number] Glucose Ql (U) Negative Normal Comprehens trupti Internal Medicine Work Phone: Comment on above: PATIENT WAS FASTINGP ERFORMED BY: ORTIZ LabAleksandr CroweThwmuq6550 Rodriguez RoadDublin [place] [id number] Hemoglobin Ql (U) Negative Normal Compreh ensive Internal Medicine Work Phone: Comment on above: PATIENT WAS FASTINGP ERFORMED BY: ORTIZ LabAleksandr CroweMwpqfs5439 Rodriguez [facility] [place] [id number] Ketones Ql (U) Negative Normal Comprehens trupti Internal Medicine Work Phone: Comment on above: PATIENT WAS FASTINGP ERFORMED BY: ORTIZ [facility] Ptlmsd6207 [address] RoadDublin [place] [id number] Leukocyte esterase Test strip Ql (U) Negative Normal Comprehensive Internal Medicine Work Phone: Comment on above: PATIENT WAS FASTINGP ERFORMED BY: ORTIZ [facility] Hjbttz4080 Rodriguez RoadDublin [place] [id number] Microscopic observation LM Nom (Urine sed) See below: Normal Comprehensive Internal Medicine Work Phone: Comment on above: Microscopic was derrick cated and was performed. PATIENT WAS FASTINGP ERFORMED BY: ORTIZ LabCoaustyn CroweSmvddt2330 Rodriguez RoadDublin [place] [id number] Microscopic observation LM Nom (Urine sed) MICRON Normal Comprehensive Internal Medicine Work Phone: Comment on above: Microscopic follows if indicated. PATIENT WAS FASTINGP ERFORMED BY: ORTIZ Crowelin6370 [address] RoadDublin [place] [id number] Nitrite Ql (U) Negative Normal [facility]ens trupti Internal Medicine Work Phone: Comment on above: PATIENT WAS FASTINGP ERFORMED BY: ORTIZ Crowelin6370 [address] RoadDublin [place] [id number] pH (U) 7.0 [pH] Normal 5.0-7.5 Comprehensive Internal Medicine Work Phone: Comment on above: PATIENT WAS FASTINGP ERFORMED BY: ORTIZ Crowelin6370 [address] RoadDublin [place] [id number] Protein Ql (U) Trace Normal [facility] Internal Medicine Work Phone: Comment on above: PATIENT WAS FASTINGP ERFORMED BY: ORTIZ [facility] Tewdmh4299 Rodriguez RoadDublin [place] [id number] Specific gravity Relative Density (U) 1.017 1 Normal 1.005-1.03 0 Comprehensive Internal Medicine Work Phone: Comment on above: PATIENT WAS FASTINGP ERFORMED BY: ORTIZ [facility] Lewnip6912 Rodriguez RoadDublin [place] [id number] Urobilinogen Test strip mass conc (U) 0.2 mg/dL Normal 0.0-1.9 Comprehensiv e Internal Medicine Work Phone: Comment on above: PATIENT WAS FASTINGP ERFORMED BY: Gate 53|10 TechnologiesCoJersey Shore University Medical CenterIdzskz7635 [facility] [id number] Vitamin D Hydroxy (04068)Ord ered By: Dobie Man on 10-19-2014 25-Hydroxyvitamin D2+25-Hydroxyvitamin D3 mass conc 39.6 ng/mL Normal 30.0-100.0 Comprehensive Internal Medicine Work Phone: Comment on above: Vitamin D deficiency has been defined by the [place] ofMedicine and an Endocrine Society practice guideline as alevel of serum 25-OH vitamin D less than 20 ng/mL (1,2).The Endocrine Society went on to further define vitamin Dinsufficiency as a level between 21 and 29 ng/mL (2).1. IOM ([place] of Medicine). 2010. Dietary reference intakes for calcium and D. [place]: The National Academies Press.2. Allie MF, Emile NC, Natalie POOLE, et al. Evaluation, treatment, and prevention of vitamin D deficiency: an Endocrine Society clinical practice guideline. JCEM. 2010; 96(7):1911-30. PATIENT WAS FASTINGP ERFORMED BY: Gate 53|10 TechnologiesCoEmployInsight Pkmslj5877 [facility] [id number] FECAL OCCULT HGB ASSAY- tube s sent home (16440)Ordered By: Cady Huber on 10-12-2014 Hemoglobin.gastrointes tinal Ql (St) Negative Normal Comprehensive Internal Medicine Work Phone: Office Visit: [facility] 10-10-19 15 cardiac risk group C Invalid Interpretation Code [facility] Work Phone: General cardiovascular disease 10Y risk [#] [place] N/A Invalid Interpretation Code [employer] Work Phone: Replaced Document: Escobar Watsonon 10-10-2014 electrocardiogram interpretation Sinus Bradycardia WITHIN NORMAL LIMITS Invalid Interpretation Code [facility] Work Phone: GE use only - for [...] path ms Invalid Interpretation Code [facility] Work Phone: T wave axis, electrocardiogram 41 deg Invalid Interpretation Code [facility] Work Phone: CBC WITH MANUAL DIFF (03463) Ordered By: Dobie Man on 06-26-2014 Basophils #/vol (Bld) 0.0 {x10E3/uL} Normal 0.0-0.2 [facility] Medicine Work Phone: Comment on above: PATIENT WAS FASTINGP ERFORMED BY: [facility]edSelect [facility] [id number] Information: [id number] Basophils/100 WBC (Bld) 1 % Normal Comprehensive Internal Medicine Work Phone: Comment on above: PATIENT WAS FASTINGP ERFORMED BY: [facility]eb[facility]edSelect [facility] [id number] Information: [id number] Eosinophils #/vol (Bld) 0.2 {x10E3/uL} Normal 0.0-0.4 [facility] Internal Medicine Work Phone: Comment on above: PATIENT WAS FASTINGP ERFORMED BY: [employer]ow[employer] HydroLogexSelect Specialty Hospital [facility] [id number] Information: [id number] Eosinophils/100 WBC (Bld) 3 % Normal Comprehensive Internal Medicine Work Phone: Comment on above: PATIENT WAS FASTINGP ERFORMED BY: [facility] CoppertinoDublin [place] [id number] Information: [id number] Erythrocyte distribution width Ratio (RBC) 13.4 % Normal 12.3-15.4 [facility] Internal Medicine Work Phone: Comment on above: PATIENT WAS FASTINGP ERFORMED BY: [address] [id number] Information: [id number] Hematocrit Volume Fraction (Bld) 40.5 % Normal 34.0-46.6 [facility] Internal Medicine Work Phone: Comment on above: PATIENT WAS FASTINGP ERFORMED BY: [address] [id number] Information: [id number] Hemoglobin mass conc (Bld) 13.1 g/dL Normal 11.1-15.9 [facility] Medicine Work Phone: Comment on above: PATIENT WAS FASTINGP ERFORMED BY: [address] [id number] Information: [id number] Immature granulocytes #/vol (Bld) 0.0 {x10E3/uL} Normal 0.0-0.1 Comprehensive Internal Medicine Work Phone: Comment on above: PATIENT WAS FASTINGP ERFORMED BY: [place] [id number] [facility] [id number] Information: [id number] Immature granulocytes/100 WBC (Bld) 0 % Normal Comprehensive Internal Medicine Work Phone: Comment on above: PATIENT WAS FASTINGP ERFORMED BY: [place] [id number] [facility] [id number] Information: [id number] Lymphocytes #/vol (Bld) 1.1 {x10E3/uL} Normal 0.7-3.1 [facility] Internal Medicine Work Phone: Comment on above: PATIENT WAS FASTINGP ERFORMED BY: [address] [id number] Information: [id number] Lymphocytes/100 WBC (Bld) 21 % Normal Comprehensive Internal Medicine Work Phone: Comment on above: PATIENT WAS FASTINGP ERFORMED BY: [place] [id number] [facility] [id number] Information: [id number] MCH Entitic mass (RBC) 29.4 pg Normal 26.6-33.0 [facility] Internal Medicine Work Phone: Comment on above: PATIENT WAS FASTINGP ERFORMED BY: [address] [id number] Information: [id number] MCHC mass conc (RBC) 32.3 g/dL Normal 31.5-35.7 [facility] Internal Medicine Work Phone: Comment on above: PATIENT WAS FASTINGP ERFORMED BY: [address] [id number] Information: [id number] MCV Entitic volume (RBC) 91 fL Normal 79-97 Comprehensive Internal Medicine Work Phone: Comment on above: PATIENT WAS FASTINGP ERFORMED BY: [address] [id number] Information: [id number] Monocytes #/vol (Bld) 0.5 {x10E3/uL} Normal 0.1-0.9 [facility] Internal Medicine Work Phone: Comment on above: PATIENT WAS FASTINGP ERFORMED BY: [address] [id number] Information: [id number] Monocytes/100 WBC (Bld) 10 % Normal [facility] Internal Medicine Work Phone: Comment on above: PATIENT WAS FASTINGP ERFORMED BY: [address] [id number] Information: [id number] Neutrophils #/vol (Bld) 3.7 {x10E3/uL} Normal 1.4-7.0 [facility] Internal Medicine Work Phone: Comment on above: PATIENT WAS FASTINGP ERFORMED BY: ORTIZ Chester6370 [facility] [id number] Information: [id number] Neutrophils/100 WBC (Bld) 65 % Normal Comprehensive Internal Medicine Work Phone: Comment on above: PATIENT WAS FASTINGP ERFORMED BY: ORTIZ RobledoSaint [facility] Center Nflpkv[address] [id number] Information: [id number] Platelets #/vol (Bld) 198 {x10E3/uL} Normal 150-379 Comprehensive Internal Medicine Work Phone: Comment on above: PATIENT WAS FASTINGP ERFORMED BY: MeenaSaint [facility] Health Center Pbbkqx64[address] [id number] Information: [id number] RBC #/vol (Bld) 4.45 {x10E6/uL} Normal 3.77-5.28 [facility] Internal Medicine Work Phone: Comment on above: PATIENT WAS FASTINGP ERFORMED BY: ORTIZ RobledoSaint [facility] Center Gjyiwj96[address] [id number] Information: [id number] WBC #/vol (Bld) 5.6 {x10E3/uL} Normal 3.4-10.8 [facility] Internal Medicine Work Phone: Comment on above: PATIENT WAS FASTINGP ERFORMED BY: [place] [id number] [facility] [id number] Information: [id number] LIPID PANEL (12284)Ordered B y: Dobie Man on 06-26-2014 Cholesterol in HDL mass conc 46 mg/dL Normal Comprehensive Internal Medicine Work Phone: Comment on above: According to ATP-III Guidelines, HDL-C >59 mg/dL is considered anegative risk factor for CHD. PATIENT WAS FASTINGP ERFORMED BY: [place] [id number] [facility] [id number] Cholesterol in LDL mass conc 130 mg/dL Abnormal 0-99 Comprehensive Internal Medicine Work Phone: Comment on above: PATIENT WAS FASTINGP ERFORMED BY: ORTIZ Chester6370 [facility] [id number] Cholesterol in LDL/Cholesterol in HDL mass ratio 2.8 {ratio_units} Normal 0.0-3.2 Comprehensive Internal Medicine Work Phone: Comment on above: LDL/HDL Ratio Men Wo men 1/2 Avg.Risk 1.0 1.5 Avg.Risk 3.6 3.2 2X Avg.Risk 6.2 5.0 3X Avg.Risk 8.0 6.1 PATIENT WAS FASTINGP ERFORMED BY: ORTIZ Crowelin6370 [facility] [id number] Cholesterol in VLDL mass conc 41 mg/dL Abnormal 5-40 Comprehensive Internal Medicine Work Phone: Comment on above: PATIENT WAS FASTINGP ERFORMED BY: ORTIZ Crowelin6370 [facility] [id number] Cholesterol mass conc 217 mg/dL Abnormal 100-199 Com prehensive Internal Medicine Work Phone: Comment on above: PATIENT WAS FASTINGP ERFORMED BY: ORTIZ Crowelin6370 [facility] [id number] Triglyceride mass conc 203 mg/dL Abnormal 0-149 Co mprehensive Internal Medicine Work Phone: Comment on above: PATIENT WAS FASTINGP ERFORMED BY: ORTIZ Crowelin6370 [facility] [id number] METABOLIC PANEL, COMPREHENSI VE ([id number])Ordered By: Dobie Man on 06-26-2014 Albumin mass conc 4.0 g/dL Normal 3.5-4.8 Compreh ensive Internal Medicine Work Phone: Comment on above: PATIENT WAS FASTINGP ERFORMED BY: ORTIZ Crowelin6370 [facility] [id number] Albumin/Globulin mass ratio 1.7 {ratio} Normal 1.1-2.5 Comprehensive Internal Medicine Work Phone: Comment on above: PATIENT WAS FASTINGP ERFORMED BY: ORTIZ [facility] Pwcjbb8126 Rodriguez RoadDublin [place] [id number] ALP enzyme act/vol 80 [iU]/L Normal 39-117 [facility] Internal Medicine Work Phone: Comment on above: PATIENT WAS FASTINGP ERFORMED BY: CB [facility] Xdtfvt9164 Rodriguez RoadDublin [place] [id number] ALT enzyme act/vol 8 [iU]/L Normal 0-32 [facility] Internal Medicine Work Phone: Comment on above: PATIENT WAS FASTINGP ERFORMED BY: ORTIZ [facility] Ssmnla3934 Rodriguez RoadDublin [place] [id number] AST enzyme act/vol 10 [iU]/L Normal 0-40 [facility]north [facility] Internal Medicine Work Phone: Comment on above: PATIENT WAS FASTINGP ERFORMED BY: ORTIZ [facility] Jbecir4688 Rodriguez RoadDublin [place] [id number] Bilirubin mass conc 0.3 mg/dL Normal 0.0-1.2 Compr [facility] Internal Medicine Work Phone: Comment on above: PATIENT WAS FASTINGP ERFORMED BY: ORTIZ [facility] Fjvoeh4277 Rodriguez RoadDublin [place] [id number] Calcium mass conc 9.4 mg/dL Normal 8.6-10.2 Compreh bannerive Internal Medicine Work Phone: Comment on above: PATIENT WAS FASTINGP ERFORMED BY: ORTIZ [facility] Fyobug2336 [address] RoadDublin [place] [id number] Chloride molar conc 100 mmol/L Normal 97-108 Compr ensive Internal Medicine Work Phone: Comment on above: PATIENT WAS FASTINGP ERFORMED BY: CB [facility] Smdpgo7944 [address] RoadDublin [place] [id number] CO2 molar conc 26 mmol/L Normal 18-29 Comprehens trupti Internal Medicine Work Phone: Comment on above: PATIENT WAS FASTINGP ERFORMED BY: ORTIZ [facility] Lfnnwa1529 [address] RoadDublin [place] [id number] Creatinine mass conc 0.80 mg/dL Normal 0.57-1.00 Comp rehensive Internal Medicine Work Phone: Comment on above: PATIENT WAS FASTINGP ERFORMED BY: ORTIZ MeenaAleksandr CroweYnadpd2149 [facility] [id number] GFR/1.73 sq M predicted among blacks CKD-EPI vol rate/area (S/P/Bld) 83 mL/min/1.73 Normal Comprehensive Internal Medicine Work Phone: Comment on above: PATIENT WAS FASTINGP ERFORMED BY: ORTIZ Crowelin6370 [facility] [id number] GFR/1.73 sq M predicted among non-blacks CKD-EPI vol rate/area (S/P/Bld) 72 mL/min/1.73 Normal Comprehensiv e Internal Medicine Work Phone: Comment on above: PATIENT WAS FASTINGP ERFORMED BY: ORTIZ Crowelin6370 [facility] [id number] Globulin mass conc (S) 2.3 g/dL Normal 1.5-4.5 Co [facility] hospitalehensive Internal Medicine Work Phone: Comment on above: PATIENT WAS FASTINGP ERFORMED BY: ORTIZ Chester6370 [facility] [id number] Glucose mass conc 90 mg/dL Normal 65-99 Compreh ensive Internal Medicine Work Phone: Comment on above: PATIENT WAS FASTINGP ERFORMED BY: ORTIZ Crowelin6370 [facility] [id number] Potassium molar conc 4.0 mmol/L Normal 3.5-5.2 Comp rehensive Internal Medicine Work Phone: Comment on above: PATIENT WAS FASTINGP ERFORMED BY: ORTIZ MeenaAleksandr CroweArbfbf4921 [facility] [id number] Protein mass conc 6.3 g/dL Normal 6.0-8.5 Compreh ensive Internal Medicine Work Phone: Comment on above: PATIENT WAS FASTINGP ERFORMED BY: ORTIZ Crowelin6370 [facility] [id number] Sodium molar conc 142 mmol/L Normal 134-144 Compreh ensive Internal Medicine Work Phone: Comment on above: PATIENT WAS FASTINGP ERFORMED BY: ORTIZ Chester6370 [facility] [id number] Urea nitrogen mass conc 10 mg/dL Normal 8-27 [facility] Medicine Work Phone: Comment on above: PATIENT WAS FASTINGP ERFORMED BY: ORTIZ Ameya Tdcatd8153 [facility] [id number] Urea nitrogen/Creatinine mass ratio 13 mg/mg Normal 11-26 [facility] Medicine Work Phone: Comment on above: PATIENT WAS FASTINGP ERFORMED BY: ORTIZ Ameya Lwxyjk3652 [facility] [id number] MICROALBUMINOrdered By: Zscaler em Barrel Handler on 06-26-2014 Albumin DL <= 20 mg/L mass conc (U) 12.3 ug/mL Normal 0.0-17.0 [facility] Medicine Work Phone: Comment on above: PATIENT WAS FASTINGP ERFORMED BY: ORTIZ MeenaSaint [facility] Center Uhckxv1176 [facility] [id number] Albumin/Creatinine mass ratio (U) 7.0 {mg/g_creat} Normal 0.0-30.0 [facility] Medicine Work Phone: Comment on above: PATIENT WAS FASTINGP ERFORMED BY: Ameya Vcfgul9556 [facility] [id number] Creatinine mass conc (U) 176.5 mg/dL Normal 15.0-278.0 [facility] Medicine Work Phone: Comment on above: PATIENT WAS FASTINGP ERFORMED BY: MeenaSaint [facility] Nzokpe9365 [facility] [id number] TSH ([id number])Ordered By: Zscalere m Barrel Handler on 06-26-2014 Thyrotropin Qn 1.220 {uIU/mL} Normal 0.450-4.50 0 [facility] Work Phone: Comment on above: PATIENT WAS FASTINGP ERFORMED BY: ORTIZ [facility] Torvox7977 [address] RoadDublin [place] [id number] URINALYSIS, W/ MICRO ([id number]) Ordered By: Dobie Man on 06-26-2014 Appearance Nom (U) Clear Normal Compre hensive Internal Medicine Work Phone: Comment on above: PATIENT WAS FASTINGP ERFORMED BY: ORTIZ [facility] Kzcvwu1482 [address] RoadDublin [place] [id number] Bilirubin Ql (U) Negative Normal Comprehe nsive Internal Medicine Work Phone: Comment on above: PATIENT WAS FASTINGP ERFORMED BY: ORTIZ [facility] Srgiei2625 [address] RoadDublin [place] [id number] Color Nom (U) Yellow Normal Comprehensi ve Internal Medicine Work Phone: Comment on above: PATIENT WAS FASTINGP ERFORMED BY: ORTIZ [facility] Aamdox2395 [address] RoadDublin [place] [id number] Glucose Ql (U) Negative Normal Comprehens trupti Internal Medicine Work Phone: Comment on above: PATIENT WAS FASTINGP ERFORMED BY: ORTIZ [facility] Ivrloj9892 [address] RoadDublin [place] [id number] Hemoglobin Ql (U) Negative Normal Compreh ensive Internal Medicine Work Phone: Comment on above: PATIENT WAS FASTINGP ERFORMED BY: ORTIZ [facility] Kcmbbd5133 [address] RoadDublin [place] [id number] Ketones Ql (U) Negative Normal Comprehens trupti Internal Medicine Work Phone: Comment on above: PATIENT WAS FASTINGP ERFORMED BY: ORTIZ [facility] Znfsjz6148 [address] RoadDublin [place] [id number] Leukocyte esterase Test strip Ql (U) Negative Normal [facility] Work Phone: Comment on above: PATIENT WAS FASTINGP ERFORMED BY: ORTIZ [facility] Owftum5076 [address] RoadDublin [place] [id number] Microscopic observation LM Nom (Urine sed) See below: Normal [facility] Work Phone: Comment on above: Microscopic was derrick cated and was performed. PATIENT WAS FASTINGP ERFORMED BY: ORTIZ [facility] Qxngkt5450 [address] RoadDublin [place] [id number] Microscopic observation LM Nom (Urine sed) MICRON Normal [facility] Work Phone: Comment on above: Microscopic follows if indicated. PATIENT WAS FASTINGP ERFORMED BY: ORTIZ [facility] Iycpew8519 [address] RoadDublin [place] [id number] Nitrite Ql (U) Negative Normal Comprehens trupti Internal Medicine Work Phone: Comment on above: PATIENT WAS FASTINGP ERFORMED BY: ORTIZ [facility] Hkkiiq9359 [address] RoadDublin [place] [id number] pH (U) 5.5 [pH] Normal 5.0-7.5 [facility] Work Phone: Comment on above: PATIENT WAS FASTINGP ERFORMED BY: ORTIZ [facility] Nopdbk3257 [address] RoadDublin [place] [id number] Protein Ql (U) Negative Normal Comprehens trupti Internal Medicine Work Phone: Comment on above: PATIENT WAS FASTINGP ERFORMED BY: ORTIZ [facility] Jyzaft3183 [address] RoadDublin [place] [id number] Specific gravity Relative Density (U) 1.020 1 Normal 1.005-1.03 0 [facility] Work Phone: Comment on above: PATIENT WAS FASTINGP ERFORMED BY: [facility] Iuxnet7303 [address] RoadDublin [place] [id number] Urobilinogen Test strip mass conc (U) 0.2 mg/dL Normal 0.0-1.9 Comprehensiv e Internal Medicine Work Phone: Comment on above: PATIENT WAS FASTINGP ERFORMED BY: [facility] Sehswn4401 [address] RoadDublin [place] [id number] Vitamin D Hydroxy (79680)Ord ered By: Dobie Man on 06-26-2014 25-Hydroxyvitamin D2+25-Hydroxyvitamin D3 mass conc 38.9 ng/mL Normal 30.0-100.0 [facility] Work Phone: Comment on above: Vitamin D deficiency has been defined by the [place] of[place]icine and an Endocrine Society practice guideline as alevel of serum 25-OH vitamin D less than 20 ng/mL (1,2).The Endocrine Society went on to further define vitamin Dinsufficiency as a level between 21 and 29 ng/mL (2).1. IOM ([place] of [employer]). 2010. Dietary reference intakes for calcium and D. [place]: The National Academies Press.2. Allie MF, Emile PONCE, Natalie POOLE, et al. Evaluation, treatment, and prevention of vitamin D deficiency: an Endocrine Society clinical practice guideline. JCEM. 2010; 96(7):1911-30. PATIENT WAS FASTINGP ERFORMED BY: [employer] LabStartSpanish Omyzpd[address] Shipwirebl[place] [id number] URINE IBRAHIMA CULTURE-IDENTIFICA [place] (84769)Ordered By: Dobie Man on 04-17-2014 Bacteria identified Cx Nom (U) Escherichia coli Abnormal [facility] Work Phone: Comment on above: Greater than 100,000 colony forming units per mL PATIENT NOT FASTINGP ERFORMED BY: CB [facility] Kjfcsr0719 Rodriguez RoadDublin [place] [id number] Information: [id number] Bacteria identified Cx Nom (U) Final report Abnormal [facility] Work Phone: Comment on above: PATIENT NOT FASTINGP ERFORMED BY: [employer] [facility] Ymyqgd6456 Rodriguez RoadDublin [place] [id number] Information: [id number] Other Antibiotic [facility] Apalya [facility] prehensive Internal Medicine Work Phone: Comment on above: S = Susceptibl e; I = Intermediate; R = Resistant P = Positive; N = Negative MICS are expressed in micrograms per mL Antibiotic RSLT#1 RSLT#2 RSLT#3 RSLT#4Amoxicillin/Clavulanic Acid SAmpicillin SCefepime SCeftriaxone SCefuroxime SCephalothin SCiprofloxacin SErtapenem SGentamicin SImipenem SLevofloxacin SNitrofurantoin SPiperacillin STetracycline STobramycin STrimethoprim/Sulfa S PATIENT NOT FASTINGP ERFORMED BY: CB LabALENTYZbdoql5851 [facility] [id number] Information: [id number] Urinalysis, Office (49823)Or dered By: Alyson Dixon on 04-17-2014 Bilirubin [...] Medicine Work Phone: CBC WITH MANUAL DIFF (37277) Ordered By: Dobie Man on 04-06-2014 Basophils #/vol (Bld) 0.0 {x10E3/uL} Normal 0.0-0.2 [facility] Work Phone: Comment on above: PATIENT NOT FASTINGP ERFORMED BY: [employer] Vnecqi0100 [facility] [id number] Information: [id number] Basophils/100 WBC (Bld) 0 % Normal 0-3 [facility] Work Phone: Comment on above: PATIENT NOT FASTINGP ERFORMED BY: [employer] Qzgomr0661 [facility] [id number] Information: [id number] Eosinophils #/vol (Bld) 0.1 {x10E3/uL} Normal 0.0-0.4 [facility] Work Phone: Comment on above: PATIENT NOT FASTINGP ERFORMED BY: ORTIZ Chester6370 [facility] [id number] Information: [id number] Eosinophils/100 WBC (Bld) 2 % Normal 0-5 [facility] Work Phone: Comment on above: PATIENT NOT FASTINGP ERFORMED BY: ORTIZ Robledo[address] [id number] Information: [id number],[id number] Erythrocyte distribution width Ratio (RBC) 13.5 % Normal 12.3-15.4 [facility] Work Phone: Comment on above: PATIENT NOT FASTINGP ERFORMED BY: ORTIZ [facility]oS[facility] Rpiztm8[address] [id number] Information: [id number] Hematocrit Volume Fraction (Bld) 38.1 % Normal 34.0-46.6 [facility] Work Phone: Comment on above: PATIENT NOT FASTINGP ERFORMED BY: ORTIZ Robledo[address] [id number] Information: [id number],[id number] Hemoglobin mass conc (Bld) 12.8 g/dL Normal 11.1-15.9 [facility] Work Phone: Comment on above: PATIENT NOT FASTINGP ERFORMED BY: ORTIZ Lab[address] [id number] Information: [id number],[id number] Immature granulocytes #/vol (Bld) 0.0 {x10E3/uL} Normal 0.0-0.1 [facility] Work Phone: Comment on above: PATIENT NOT FASTINGP ERFORMED BY: ORTIZ LabAndre Ville 3096970 [facility] [id number] Information: [id number] Immature granulocytes/100 WBC (Bld) 0 % Normal 0-2 [facility] Work Phone: Comment on above: PATIENT NOT FASTINGP ERFORMED BY: [facility]6370 [facility] [id number] Information: [id number] Lymphocytes #/vol (Bld) 1.5 {x10E3/uL} Normal 0.7-3.1 [facility] Work Phone: Comment on above: PATIENT NOT FASTINGP ERFORMED BY: [address] [id number] Information: [id number] Lymphocytes/100 WBC (Bld) 26 % Normal 14-46 [facility] Work Phone: Comment on above: PATIENT NOT FASTINGP ERFORMED BY: [address] [id number] Information: [id number] MCH Entitic mass (RBC) 31.1 pg Normal 26.6-33.0 [facility] Internal Medicine Work Phone: Comment on above: PATIENT NOT FASTINGP ERFORMED BY: [place] [id number] [facility] [id number] Information: [id number] MCHC mass conc (RBC) 33.6 g/dL Normal 31.5-35.7 [facility] Internal Medicine Work Phone: Comment on above: PATIENT NOT FASTINGP ERFORMED BY: [address] [id number] Information: [id number] MCV Entitic volume (RBC) 93 fL Normal 79-97 [facility] Internal Medicine Work Phone: Comment on above: PATIENT NOT FASTINGP ERFORMED BY: LabProm[facility] Hospital6370 [facility] [id number] Information: [id number],[id number] Monocytes #/vol (Bld) 0.5 {x10E3/uL} Normal 0.1-0.9 [facility] Work Phone: Comment on above: PATIENT NOT FASTINGP ERFORMED BY: ORTIZ Chester6370 [facility] [id number] Information: [id number],S07301 Monocytes/100 WBC (Bld) 9 % Normal 4-12 [facility] Work Phone: Comment on above: PATIENT NOT FASTINGP ERFORMED BY: ORTIZ Crowelin6370 [facility] [id number] Information: [id number],[id number] Neutrophils #/vol (Bld) 3.5 {x10E3/uL} Normal 1.4-7.0 [facility] Work Phone: Comment on above: PATIENT NOT FASTINGP ERFORMED BY: ORTIZ Chester6370 [facility] [id number] Information: 085921,Z31369 Neutrophils/100 WBC (Bld) 63 % Normal 40-74 [facility] Work Phone: Comment on above: PATIENT NOT FASTINGP ERFORMED BY: ORTIZ Hou Ovvvzm8739 [facility] [id number] Information: [id number] Platelets #/vol (Bld) 193 {x10E3/uL} Normal 150-379 [facility] Work Phone: Comment on above: PATIENT NOT FASTINGP ERFORMED BY: ORTIZ Hou Epvwzx2917 [facility] [id number] Information: [id number],[id number] RBC #/vol (Bld) 4.12 {x10E6/uL} Normal 3.77-5.28 [facility] Internal Medicine Work Phone: Comment on above: PATIENT NOT FASTINGP ERFORMED BY: ORTIZ Hou Ifkxyw4986 [facility] [id number] Information: [id number],Z61841 WBC #/vol (Bld) 5.6 {x10E3/uL} Normal 3.4-10.8 [facility] Internal Medicine Work Phone: Comment on above: PATIENT NOT FASTINGP ERFORMED BY: ORTIZ [facility] Rbfgps5301 Rodriguez RoadDublin [place] [id number] Information: [id number],[id number] LIPID PANEL (72345)Ordered B y: Dobie Man on 04-06-2014 Cholesterol in HDL mass conc 54 mg/dL Normal [facility] Work Phone: Comment on above: According to ATP-III Guidelines, HDL-C >59 mg/dL is considered anegative risk factor for CHD. PATIENT NOT FASTINGP ERFORMED BY: CB [facility] Acoopb0454 Rodriguez RoadDublin [place] [id number] Cholesterol in LDL mass conc 63 mg/dL Normal 0-99 [facility] Work Phone: Comment on above: PATIENT NOT FASTINGP ERFORMED BY: ORTIZ [facility] Vhawrh6955 Rodriguez RoadDublin [place] [id number] Cholesterol in LDL/Cholesterol in HDL mass ratio 1.2 {ratio_units} Normal 0.0-3.2 [facility] Work Phone: Comment on above: PATIENT NOT FASTINGP ERFORMED BY: CB [facility] Wqptbg3633 Rodriguez RoadDublin [place] [id number] Cholesterol in VLDL mass conc 41 mg/dL Abnormal 5-40 [facility] Work Phone: Comment on above: PATIENT NOT FASTINGP ERFORMED BY: ORTIZ [facility] Bvggnd0639 Rodriguez RoadDublin [place] [id number] Cholesterol mass conc 158 mg/dL Normal 100-199 Com prehensive Internal Medicine Work Phone: Comment on above: PATIENT NOT FASTINGP ERFORMED BY: CB [facility] Sozrpf5753 [address] RoadDublin [place] [id number] Triglyceride mass conc 206 mg/dL Abnormal 0-149 [facility]ensive [facility] Work Phone: Comment on above: PATIENT NOT FASTINGP ERFORMED BY: CB [facility] Ifkvwn6195 [address] RoadDublin [place] [id number] METABOLIC PANEL, COMPREHENSI VE (64080)Ordered By: Dobie Man on 04-06-2014 Albumin mass conc 4.3 g/dL Normal 3.5-4.8 Compreh ensive Internal Medicine Work Phone: Comment on above: PATIENT NOT FASTINGP ERFORMED BY: ORTIZ LabCoaustyn ChesterMfnaim57[address] [facility] [id number] Albumin/Globulin mass ratio 2.2 {ratio} Normal 1.1-2.5 [facility] Work Phone: Comment on above: PATIENT NOT FASTINGP ERFORMED BY: ORTIZ [facility] Qafmfj6877 [facility] [id number] ALP enzyme act/vol 87 [iU]/L Normal 39-[address] [facility] Internal Medicine Work Phone: Comment on above: PATIENT NOT FASTINGP ERFORMED BY: ORTIZ LabCo Fjvljj8968 [facility] [id number] ALT enzyme act/vol 14 [iU]/L Normal 0-[address] [facility] Internal Medicine Work Phone: Comment on above: PATIENT NOT FASTINGP ERFORMED BY: ORTIZ LabCo Fkuqtz3590 [facility] [id number] AST enzyme act/vol 18 [iU]/L Normal 0-40 [facility] Work Phone: Comment on above: PATIENT NOT FASTINGP ERFORMED BY: ORTIZ Hou Kbphjj9062 [facility] [id number] Bilirubin mass conc 0.3 mg/dL Normal 0.0-1.2 Compr [facility] Internal Medicine Work Phone: Comment on above: PATIENT NOT FASTINGP ERFORMED BY: ORTIZ LabCo Tpiwpl1946 [facility] [id number] Calcium mass conc 10.0 mg/dL Normal 8.6-10.2 Compreh bannerive Internal Medicine Work Phone: Comment on above: PATIENT NOT FASTINGP ERFORMED BY: ORTIZ [facility] Thfpgx3460 [facility] [id number] Chloride molar conc 101 mmol/L Normal 97-108 Compr ensive Internal Medicine Work Phone: Comment on above: PATIENT NOT FASTINGP ERFORMED BY: LabCo Ltbzfg5772 [address] [facility] [place] [id number] CO2 molar conc 28 mmol/L Normal 18-29 Comprehens trupti Internal Medicine Work Phone: Comment on above: PATIENT NOT FASTINGP ERFORMED BY: ORTIZ [facility] Qitbwy8852 [address] [facility] [id number] Creatinine mass conc 0.73 mg/dL Normal 0.57-1.00 Comp rehensive Internal Medicine Work Phone: Comment on above: PATIENT NOT FASTINGP ERFORMED BY: LabCo Hhqoli0072 [facility] [id number] GFR/1.73 sq M predicted among blacks CKD-EPI vol rate/area (S/P/Bld) 94 mL/min/1.73 Normal [facility] Work Phone: Comment on above: PATIENT NOT FASTINGP ERFORMED BY: LabSaint [facility] Semmhg7612 [facility] [id number] GFR/1.73 sq M predicted among non-blacks CKD-EPI vol rate/area (S/P/Bld) 81 mL/min/1.73 Normal Comprehensiv e Internal Medicine Work Phone: Comment on above: PATIENT NOT FASTINGP ERFORMED BY: LabKellie Qldynu8446 [facility] [id number] Globulin mass conc (S) 2.0 g/dL Normal 1.5-4.5 Co mprehensive Internal Medicine Work Phone: Comment on above: PATIENT NOT FASTINGP ERFORMED BY: LabCo Tajsei3601 [facility] [place] [id number] Glucose mass conc 87 mg/dL Normal 65-99 Compreh ensive Internal Medicine Work Phone: Comment on above: PATIENT NOT FASTINGP ERFORMED BY: LabCo Voemdx3719 [facility] [id number] Potassium molar conc 5.0 mmol/L Normal 3.5-5.2 Comp rehensive Internal Medicine Work Phone: Comment on above: PATIENT NOT FASTINGP ERFORMED BY: ORTIZ [facility] Sbpeaa4187 Rodriguez RoadDublin [place] [id number] Protein mass conc 6.3 g/dL Normal 6.0-8.5 Compreh ensive Internal Medicine Work Phone: Comment on above: PATIENT NOT FASTINGP ERFORMED BY: CB [facility] Drztqx4021 Rodriguez RoadDublin [place] [id number] Sodium molar conc 142 mmol/L Normal 134-144 Compreh ensive Internal Medicine Work Phone: Comment on above: PATIENT NOT FASTINGP ERFORMED BY: CB [facility] Qhaynh2166 Rodriguez RoadDublin [place] [id number] Urea nitrogen mass conc 12 mg/dL Normal 8-27 [facility] Work Phone: Comment on above: PATIENT NOT FASTINGP ERFORMED BY: CB [facility] Qtegkb3218 Rodriguez RoadDublin [place] [id number] Urea nitrogen/Creatinine mass ratio 16 mg/mg Normal 11-26 [facility] Work Phone: Comment on above: PATIENT NOT FASTINGP ERFORMED BY: CB [facility] Tddrdr0167 [address] RoadDublin [place] [id number] TSH (33071)Ordered By: Samantha m Barrel Handler on 04-06-2014 Thyrotropin Qn 0.748 {uIU/mL} Normal 0.450-4.50 0 [facility] Work Phone: Comment on above: PATIENT NOT FASTINGP ERFORMED BY: CB [facility] Xgiyen8652 Rodriguez RoadDublin [place] [id number] Vitamin D Hydroxy (63625)Ord ered By: Dobie Man on 04-06-2014 25-Hydroxyvitamin D2+25-Hydroxyvitamin D3 mass conc 29.5 ng/mL Abnormal 30.0-100.0 [facility] Work Phone: Comment on above: Vitamin D deficiency has been defined by the [place] of[place]icine and an Endocrine Society practice guideline as alevel of serum 25-OH vitamin D less than 20 ng/mL (1,2).The Endocrine Society went on to further define vitamin Dinsufficiency as a level between 21 and 29 ng/mL (2).1. IOM ([place] of [employer]). 2010. Dietary reference intakes for calcium and D. [place]: The National Academies Press.2. Allie MF, Emile PONCE, Natalie POOLE, et al. Evaluation, treatment, and prevention of vitamin D deficiency: an Endocrine Society clinical practice guideline. JCEM. 2010; 96(7):1911-30. PATIENT NOT FASTINGP ERFORMED BY: CB [facility] Znsegs8081 [address] [facility] [place] [id number] CBC WITH MANUAL DIFF (00258) Ordered By: Dobie Man on 12-22-2013 Basophils #/vol (Bld) 0.0 {x10E3/uL} Normal 0.0-0.2 [facility] Work Phone: Comment on above: PATIENT NOT FASTINGP ERFORMED BY: CB [facility] Mcnmpd5458 [address] RoadDublin [place] [id number] Information: [id number], [id number] Basophils/100 WBC (Bld) 0 % Normal 0-3 [facility] Work Phone: Comment on above: PATIENT NOT FASTINGP ERFORMED BY: CB [facility] Etuoav7398 Rodriguez RoadDublin [place] [id number] Information: Y31207, 978303 Eosinophils #/vol (Bld) 0.1 {x10E3/uL} Normal 0.0-0.4 [facility] Work Phone: Comment on above: PATIENT NOT FASTINGP ERFORMED BY: CB [facility] Maqqpq6449 [address] RoadDublin [place] [id number] Information: [id number], 337644 Eosinophils/100 WBC (Bld) 2 % Normal 0-5 [facility] Work Phone: Comment on above: PATIENT NOT FASTINGP ERFORMED BY: CB [facility] Jwwemr0844 [address] [facility] [place] [id number] Information: [id number], 700012 Erythrocyte distribution width Ratio (RBC) 13.7 % Normal 12.3-15.4 [facility] Work Phone: Comment on above: PATIENT NOT FASTINGP ERFORMED BY: ORTIZ RobledoCoaustyn CroweDxbcrf6630 [facility] [id number] Information: [id number] Hematocrit Volume Fraction (Bld) 38.4 % Normal 34.0-46.6 [facility] Work Phone: Comment on above: PATIENT NOT FASTINGP ERFORMED BY: ORTIZ RobledoCo Qlzqtv3358 [facility] [id number] Information: [id number] 312503 Hemoglobin mass conc (Bld) 12.8 g/dL Normal 11.1-15.9 [facility] Work Phone: Comment on above: PATIENT NOT FASTINGP ERFORMED BY: ORTIZ RobledoCoaustyn CrowePdagvd4612 [facility] [id number] Information: U03755, 560776 Immature granulocytes #/vol (Bld) 0.0 {x10E3/uL} Normal 0.0-0.1 [facility] Work Phone: Comment on above: PATIENT NOT FASTINGP ERFORMED BY: ORTIZ RobledoCo Oabrnv8648 [facility] [id number] Information: O26406, 768591 Immature granulocytes/100 WBC (Bld) 0 % Normal 0-2 [facility] Work Phone: Comment on above: PATIENT NOT FASTINGP ERFORMED BY: ORTIZ RobledoCo Vngvnf9181 [facility] [id number] Information: H64243, 997676 Lymphocytes #/vol (Bld) 1.1 {x10E3/uL} Normal 0.7-3.1 [facility] Work Phone: Comment on above: PATIENT NOT FASTINGP ERFORMED BY: ORTIZ [facility] Fwmsvg9320 [facility] [id number] Information: [id number], 058053 Lymphocytes/100 WBC (Bld) 22 % Normal 14-46 [facility] Work Phone: Comment on above: PATIENT NOT FASTINGP ERFORMED BY: ORTIZ LabCoJersey Shore University Medical CenterMdjpgf5394 [facility] [id number] Information: R63248, 841141 MCH Entitic mass (RBC) 30.6 pg Normal 26.6-33.0 [facility] Internal Medicine Work Phone: Comment on above: PATIENT NOT FASTINGP ERFORMED BY: [facility] HospitalCoJersey Shore University Medical CenterInodfn8060 [facility] [id number] Information: I40250, 609294 MCHC mass conc (RBC) 33.3 g/dL Normal 31.5-35.7 [facility] Internal Medicine Work Phone: Comment on above: PATIENT NOT FASTINGP ERFORMED BY: [facility]6370 [facility] [id number] Information: [id number], 820769 MCV Entitic volume (RBC) 92 fL Normal 79-97 [facility] Work Phone: Comment on above: PATIENT NOT FASTINGP ERFORMED BY: [facility]6370 [facility] [id number] Information: [id number], 958937 Monocytes #/vol (Bld) 0.4 {x10E3/uL} Normal 0.1-0.9 [facility] Work Phone: Comment on above: PATIENT NOT FASTINGP ERFORMED BY: [facility]6370 [facility] [id number] Information: Z42295, 161226 Monocytes/100 WBC (Bld) 8 % Normal 4-12 [facility] Work Phone: Comment on above: PATIENT NOT FASTINGP ERFORMED BY: LabPromedica [facility] Hospital6370 [facility] [id number] Information: O48780, 154066 Neutrophils #/vol (Bld) 3.3 {x10E3/uL} Normal 1.4-7.0 [facility] Work Phone: Comment on above: PATIENT NOT FASTINGP ERFORMED BY: LabAndre Ville 3096970 [facility] [id number] Information: G81205, 807053 Neutrophils/100 WBC (Bld) 68 % Normal 40-74 [facility] Internal Medicine Work Phone: Comment on above: PATIENT NOT FASTINGP ERFORMED BY: ORTIZ RobledoCoaustyn ChesterXweicu8567 [facility] [id number] Information: E10716, 787796 Platelets #/vol (Bld) 190 {x10E3/uL} Normal 155-379 [facility] Internal Medicine Work Phone: Comment on above: PATIENT NOT FASTINGP ERFORMED BY: ORTIZ LabCo Nlbsnn1889 [facility] [id number] Information: [id number], 349842 RBC #/vol (Bld) 4.18 {x10E6/uL} Normal 3.77-5.28 [facility] Internal Medicine Work Phone: Comment on above: PATIENT NOT FASTINGP ERFORMED BY: ORTIZ RobledoCo Mwpqpv8323 [facility] [id number] Information: T85222, 150081 WBC #/vol (Bld) 4.8 {x10E3/uL} Normal 3.4-10.8 [facility] Internal Medicine Work Phone: Comment on above: PATIENT NOT FASTINGP ERFORMED BY: ORTIZ LabCo Tvvdyg0654 [facility] [id number] Information: [id number], 375314 D-Dimer (91547)Ordered By: Dc keithte Barrel Handler on 12-22-2013 D-Dimer (33189) 0.40 {ug_FEU/mL} Normal 0.00-0.49 [facility] Internal Medicine Work Phone: Comment on above: In conjunction with a non-high clinical probability assessment, anormal (<0.50 ug FEU/mL) result excludes deep vein thrombosis (DVT)and pulmonary embolism (PE) with high sensitivity. PATIENT NOT FASTINGP ERFORMED BY: CB LabCo Kewfgp1064 [facility] [id number] PT (Prothrobim Time) (25468) Ordered By: Dobie Man on 12-22-2013 INR Coag RelTime (PPP) 1.0 {INR} Normal 0.8-1.2 [facility] Internal Medicine Work Phone: Comment on above: Reference interval i s for non-anticoagulated patients. . Suggested INR therapeutic range for Vitamin K antagonist therapy: Standard Dose (moderate intensity therapeutic range): 2.0 - 3.0 Higher intensity therapeutic range 2.5 - 3.5 PATIENT NOT FASTINGP ERFORMED BY: Gate 53|10 TechnologiesPromedica Monroe Regional Hospital[address] LagotekNovant Health / N[facility] [id number] Prothrombin time (PT) Coag time (PPP) 10.6 {sec} Normal 9.1-12.0 [facility] Internal Medicine Work Phone: Comment on above: PATIENT NOT FASTINGP ERFORMED BY: [employer] CoZuni HospitalGdogji[address] LagotekNovant Health / N[facility]MC [id number] PTT (Activated Partial Throm boplastin Time) (86742)Ordered By: Dobie Man on 12-22-2013 aPTT Coag time (PPP) 26 {sec} Normal 24-33 [facility] Internal Medicine Work Phone: Comment on above: This test has not be en validated for monitoring unfractionated heparintherapy. aPTT-based therapeutic ranges for unfractionated heparintherapy have not been established. For general guidelines onHeparin monitoring, refer to the [facility] Directory of Services. PATIENT NOT FASTINGP ERFORMED BY: [employer] CoJersey Shore University Medical CenterJiewim7229 [facility] [id number] MICROALBUMINOrdered By: Syst em Barrel Handler on 12-05-2013 Albumin DL <= 20 mg/L mass conc (U) 23.2 ug/mL Abnormal 0.0-17.0 [facility] Work Phone: Comment on above: PATIENT NOT FASTINGP ERFORMED BY: [employer]10 TechnologiesPromedica Monroe Regional Hospital6370 [facility] [id number] Albumin/Creatinine mass ratio (U) 14.1 {mg/g_creat} Normal 0.0-30.0 [facility] Work Phone: Comment on above: PATIENT NOT FASTINGP ERFORMED BY: ORTIZ MeenaAleksandr CroweSkefwc5136 [address] [facility] [id number] Creatinine mass conc (U) 164.8 mg/dL Normal 15.0-278.0 [facility] Work Phone: Comment on above: PATIENT NOT FASTINGP ERFORMED BY: ORTIZ MeenaAleksandr CroweOlfiqi7005 [address] [facility] [id number] URINALYSIS, W/ MICRO (83395) Ordered By: Dobie Man on 12-05-2013 Appearance Nom (U) Cloudy Abnormal Compre hensive Internal Medicine Work Phone: Comment on above: PATIENT NOT FASTINGP ERFORMED BY: ORTIZ Crowelin6[address] [facility] [id number] Information: D05789 Bilirubin Ql (U) Negative Normal Comprehe nsive Internal Medicine Work Phone: Comment on above: PATIENT NOT FASTINGP ERFORMED BY: ORTIZ Crowelin6[address] [facility] [id number] Information: [id number] Color Nom (U) Yellow Normal Comprehensi ve Internal Medicine Work Phone: Comment on above: PATIENT NOT FASTINGP ERFORMED BY: ORTIZ Crowelin6370 [facility] [id number] Information: O13897 Glucose Ql (U) Negative Normal Comprehens trupti Internal Medicine Work Phone: Comment on above: PATIENT NOT FASTINGP ERFORMED BY: ORTIZ Crowelin6[address] [facility] [id number] Information: [id number] Hemoglobin Ql (U) Negative Normal Compreh ensive Internal Medicine Work Phone: Comment on above: PATIENT NOT FASTINGP ERFORMED BY: ORTIZ MeenaAleksandr CroweUfebos7625 [address] [facility] [id number] Information: [id number] Ketones Ql (U) Negative Normal Comprehens trupti Internal Medicine Work Phone: Comment on above: PATIENT NOT FASTINGP ERFORMED BY: ORTIZ Munguia Bomizp0717 Rodriguez RoadCarteret Health Carein [place] [id number] Information: [id number] Leukocyte esterase Test strip Ql (U) Negative Normal [facility] Work Phone: Comment on above: PATIENT NOT FASTINGP ERFORMED BY: ORTIZ Crowelin6370 Rodriguez RoadDublin [place] [id number] Information: [id number] Microscopic observation LM Nom (Urine sed) See below: Normal [facility] Work Phone: Comment on above: PATIENT NOT FASTINGP ERFORMED BY: ORTIZ [facility] Akxohw5415 Rodriguez Roadblin [place] [id number] Information: [id number] Microscopic observation LM Nom (Urine sed) MICRON Normal [facility] Work Phone: Comment on above: Microscopic follows if indicated. PATIENT NOT FASTINGP ERFORMED BY: ORTIZ Nilda Uvgoht8741 Rodriguez RoadNovant Health / N[facility] [id number] Information: [id number] Nitrite Ql (U) Negative Normal Comprehens trupti Internal Medicine Work Phone: Comment on above: PATIENT NOT FASTINGP ERFORMED BY: ORTIZ MeenaCo Bfurvu1779 [address] [facility] [id number] Information: [id number] pH (U) 5.0 [pH] Normal 5.0-7.5 [facility] Work Phone: Comment on above: PATIENT NOT FASTINGP ERFORMED BY: ORTIZ Ameyarp Jhjcnu3909 [address] [facility] [id number] Information: [id number] Protein Ql (U) Negative Normal Comprehens trupti Internal Medicine Work Phone: Comment on above: PATIENT NOT FASTINGP ERFORMED BY: ORTIZ [facility] Hhzffu2395 Rodriguez [facility] [place] [id number] Information: [id number] Specific gravity Relative Density (U) 1.017 1 Normal 1.005-1.03 0 [facility] Work Phone: Comment on above: PATIENT NOT FASTINGP ERFORMED BY: ORTIZ [facility] Adcodm4193 Rodriguez [facility] Hospitalblin [place] [id number] Information: [id number] Urobilinogen Test strip mass conc (U) 0.2 mg/dL Normal 0.0-1.9 Comprehensiv e Internal Medicine Work Phone: Comment on above: PATIENT NOT FASTINGP ERFORMED BY: ORTIZ [address] [id number] Information: [id number] CBC WITH MANUAL DIFF (10402) Ordered By: Dobie Man on 12-01-2013 Basophils #/vol (Bld) 0.0 {x10E3/uL} Normal 0.0-0.2 [facility] Work Phone: Comment on above: PATIENT WAS FASTINGP ERFORMED BY: ORTIZ [place] 9200970 [facility] [id number] Information: 434182,[id number] Basophils/100 WBC (Bld) 0 % Normal 0-3 [facility] Work Phone: Comment on above: PATIENT WAS FASTINGP ERFORMED BY: [address] [id number] Information: [id number],U30468 Eosinophils #/vol (Bld) 0.1 {x10E3/uL} Normal 0.0-0.4 [facility] Work Phone: Comment on above: PATIENT WAS FASTINGP ERFORMED BY: [place] 2232070 [facility] [id number] Information: 229007,P75267 Eosinophils/100 WBC (Bld) 1 % Normal 0-5 [facility] Work Phone: Comment on above: PATIENT WAS FASTINGP ERFORMED BY: [address] [id number] Information: [id number],W30012 Erythrocyte distribution width Ratio (RBC) 13.5 % Normal 12.3-15.4 [facility] Work Phone: Comment on above: PATIENT WAS FASTINGP ERFORMED BY: [address] StreetDublin [place] [id number] Information: [id number],[id number] Hematocrit Volume Fraction (Bld) 40.8 % Normal 34.0-46.6 [facility] Work Phone: Comment on above: PATIENT WAS FASTINGP ERFORMED BY: [place] 2232070 [facility] [id number] Information: [id number] Hemoglobin mass conc (Bld) 13.2 g/dL Normal 11.1-15.9 [facility] Work Phone: Comment on above: PATIENT WAS FASTINGP ERFORMED BY: [address] [id number] Information: [id number],V09560 Immature granulocytes #/vol (Bld) 0.0 {x10E3/uL} Normal 0.0-0.1 [facility] Work Phone: Comment on above: PATIENT WAS FASTINGP ERFORMED BY: [place] 2232070 [facility] [id number] Information: 355461,[id number] Immature granulocytes/100 WBC (Bld) 0 % Normal 0-2 [facility] Work Phone: Comment on above: PATIENT WAS FASTINGP ERFORMED BY: [place] 2232070 [facility] [id number] Information: [id number],[id number] Lymphocytes #/vol (Bld) 1.4 {x10E3/uL} Normal 0.7-3.1 [facility] Work Phone: Comment on above: PATIENT WAS FASTINGP ERFORMED BY: [place] 2232070 [facility] [id number] Information: 393439,N29475 Lymphocytes/100 WBC (Bld) 18 % Normal 14-46 [facility] Work Phone: Comment on above: PATIENT WAS FASTINGP ERFORMED BY: [place] 2232070 [facility] [id number] Information: 312368,[id number] MCH Entitic mass (RBC) 30.1 pg Normal 26.6-33.0 [facility] Internal Medicine Work Phone: Comment on above: PATIENT WAS FASTINGP ERFORMED BY: [facility]6370 [facility] [id number] Information: [id number],[id number] MCHC mass conc (RBC) 32.4 g/dL Normal 31.5-35.7 [facility] Internal Medicine Work Phone: Comment on above: PATIENT WAS FASTINGP ERFORMED BY: [place] 2232070 [facility] [id number] Information: 698981,[id number] MCV Entitic volume (RBC) 93 fL Normal 79-97 [facility] Internal Medicine Work Phone: Comment on above: PATIENT WAS FASTINGP ERFORMED BY: [address] [id number] Information: 701652,D16733 Monocytes #/vol (Bld) 0.6 {x10E3/uL} Normal 0.1-0.9 [facility] Work Phone: Comment on above: PATIENT WAS FASTINGP ERFORMED BY: [place] 2232070 [facility] [id number] Information: 960111,Q09373 Monocytes/100 WBC (Bld) 7 % Normal 4-12 [facility] Work Phone: Comment on above: PATIENT WAS FASTINGP ERFORMED BY: [facility]Prom[facility]6370 [facility] [id number] Information: 116332,F01343 Neutrophils #/vol (Bld) 5.9 {x10E3/uL} Normal 1.4-7.0 [facility] Work Phone: Comment on above: PATIENT WAS FASTINGP ERFORMED BY: [place] 2232070 [facility] [id number] Information: [id number],K15982 Neutrophils/100 WBC (Bld) 74 % Normal 40-74 [facility] Work Phone: Comment on above: PATIENT WAS FASTINGP ERFORMED BY: ORTIZ [place]6370 [facility] [id number] Information: 666312,[id number] Platelets #/vol (Bld) 225 {x10E3/uL} Normal 155-379 [facility] Work Phone: Comment on above: PATIENT WAS FASTINGP ERFORMED BY: [facility] Qpzrdy3132 [facility] [id number] Information: [id number],[id number] RBC #/vol (Bld) 4.38 {x10E6/uL} Normal 3.77-5.28 [facility] Internal Medicine Work Phone: Comment on above: PATIENT WAS FASTINGP ERFORMED BY: [facility] Nycvlu9460 [facility] [id number] Information: 382255,[id number] WBC #/vol (Bld) 8.0 {x10E3/uL} Normal 3.4-10.8 [facility] Internal Medicine Work Phone: Comment on above: PATIENT WAS FASTINGP ERFORMED BY: ORTIZ Hou Ajocxu8692 [facility] [id number] Information: [id number] LIPID PANEL (18399)Ordered B y: Dobie Man on 12-01-2013 Cholesterol in HDL mass conc 47 mg/dL Normal [facility] Work Phone: Comment on above: According to ATP-III Guidelines, HDL-C >59 mg/dL is considered anegative risk factor for CHD. PATIENT WAS FASTINGP ERFORMED BY: ORTIZ [facility]oSaint [facility] Vulsmx3177 [facility] [id number] Cholesterol in LDL mass conc 50 mg/dL Normal 0-99 [facility] Work Phone: Comment on above: PATIENT WAS FASTINGP ERFORMED BY: [facility]6370 [facility] [id number] Cholesterol in LDL/Cholesterol in HDL mass ratio 1.1 {ratio_units} Normal 0.0-3.2 [facility] Work Phone: Comment on above: PATIENT WAS FASTINGP ERFORMED BY: ORTIZ [facility]austyn Vazsbg3280 [facility] [id number] Cholesterol in VLDL mass conc 35 mg/dL Normal 5-40 [facility] Work Phone: Comment on above: PATIENT WAS FASTINGP ERFORMED BY: ORTIZ [facility] Smvads5844 [facility] [id number] Cholesterol mass conc 132 mg/dL Normal 100-199 Com prehensive Internal Medicine Work Phone: Comment on above: PATIENT WAS FASTINGP ERFORMED BY: ORTIZ RobledoTnaustyn CroweZgtdts4875 [facility] [id number] Triglyceride mass conc 177 mg/dL Abnormal 0-149 [facility]ensive [facility] Work Phone: Comment on above: PATIENT WAS FASTINGP ERFORMED BY: ORTIZ [place] 9200970 [facility] [id number] Lab Report: Ordered by Dr. Saritha delgado 12-01-2013 Alanine aminotransferase (ALT) 10 U/L Invalid Interpretation Code [facility] Work Phone: Alkaline phosphatase (ALP) 76 U/L Invalid Interpretation Code [facility] Work Phone: Aspartate aminotransferase (AST) 13 U/L Invalid Interpretation Code [facility] Work Phone: METABOLIC PANEL, COMPREHENSI VE (63489)Ordered By: Dobie Man on 12-01-2013 Albumin mass conc 4.5 g/dL Normal 3.5-4.8 Compreh ensive Internal Medicine Work Phone: Comment on above: PATIENT WAS FASTINGP ERFORMED BY: ORTIZ LabAndre Ville [id number] [facility] [id number] Albumin/Globulin mass ratio 2.1 {ratio} Normal 1.1-2.5 [facility] Work Phone: Comment on above: PATIENT WAS FASTINGP ERFORMED BY: ORTIZ [facility] Lgujch4325 Rodriguez RoadDublin [place] [id number] ALP enzyme act/vol 76 [iU]/L Normal 39-117 [facility] Work Phone: Comment on above: PATIENT WAS FASTINGP ERFORMED BY: [facility] Zxlldl1922 Rodriguez RoadDublin [place] [id number] ALT enzyme act/vol 10 [iU]/L Normal 0-32 [facility] Internal [facility] Work Phone: Comment on above: PATIENT WAS FASTINGP ERFORMED BY: [facility] Tnzboc2684 Rodriguez RoadDublin [place] [id number] AST enzyme act/vol 13 [iU]/L Normal 0-40 [facility] Internal Medicine Work Phone: Comment on above: PATIENT WAS FASTINGP ERFORMED BY: [facility] Qzzacf8219 Rodriguez RoadDublin [place] [id number] Bilirubin mass conc 0.3 mg/dL Normal 0.0-1.2 [facility] Work Phone: Comment on above: PATIENT WAS FASTINGP ERFORMED BY: [facility] Xuhlrk5387 Rodriguez RoadDublin [place] [id number] Calcium mass conc 9.9 mg/dL Normal 8.6-10.2 Compreh bannerive Internal Medicine Work Phone: Comment on above: PATIENT WAS FASTINGP ERFORMED BY: [facility] Rkyhyp8581 Rodriguez RoadDublin [place] [id number] Chloride molar conc 101 mmol/L Normal 97-108 Compr ensive Internal Medicine Work Phone: Comment on above: PATIENT WAS FASTINGP ERFORMED BY: [facility] Dnhwjl8149 Rodriguez RoadDublin [place] [id number] CO2 molar conc 27 mmol/L Normal 19-28 Comprehsurgical specialty hospital-coordinated hlthe Internal Medicine Work Phone: Comment on above: PATIENT WAS FASTINGP ERFORMED BY: [facility] Ywdkys6311 Rodriguez RoadDublin [place] [id number] Creatinine mass conc 0.97 mg/dL Normal 0.57-1.00 Comp [facility] centerensive Internal Medicine Work Phone: Comment on above: PATIENT WAS FASTINGP ERFORMED BY: ORTIZ [facility] Rgrwiv9137 [address] [facility] [place] [id number] GFR/1.73 sq M predicted among blacks CKD-EPI vol rate/area (S/P/Bld) 67 mL/min/1.73 Normal [facility] Work Phone: Comment on above: PATIENT WAS FASTINGP ERFORMED BY: ORTIZ [facility] Gaaogx0686 [address] [facility] [id number] GFR/1.73 sq M predicted among non-blacks CKD-EPI vol rate/area (S/P/Bld) 58 mL/min/1.73 Abnormal Comprehensiv e Internal Medicine Work Phone: Comment on above: PATIENT WAS FASTINGP ERFORMED BY: ORTIZ [facility] Ompjyp7780 [facility] [id number] Globulin mass conc (S) 2.1 g/dL Normal 1.5-4.5 Co [facility] hospitalehensive [facility] Work Phone: Comment on above: PATIENT WAS FASTINGP ERFORMED BY: ORTIZ [facility] Zfymop3910 [facility] [id number] Glucose mass conc 99 mg/dL Normal 65-99 Compreh ensive Internal Medicine Work Phone: Comment on above: PATIENT WAS FASTINGP ERFORMED BY: [facility] Cvskcy6104 [facility] [id number] Potassium molar conc 4.9 mmol/L Normal 3.5-5.2 Comp rehensive Internal Medicine Work Phone: Comment on above: PATIENT WAS FASTINGP ERFORMED BY: [facility] Msqwul3870 Rodriguez [facility] [place] [id number] Protein mass conc 6.6 g/dL Normal 6.0-8.5 Compreh ensive Internal Medicine Work Phone: Comment on above: PATIENT WAS FASTINGP ERFORMED BY: [facility] Ypzngy2952 [address] [facility] [id number] Sodium molar conc 141 mmol/L Normal 134-144 Compreh ensive Internal Medicine Work Phone: Comment on above: PATIENT WAS FASTINGP ERFORMED BY: [facility] Gpqfso4153 [facility] [id number] Urea nitrogen mass conc 21 mg/dL Normal 8-27 [facility] Work Phone: Comment on above: PATIENT WAS FASTINGP ERFORMED BY: [facility] Zwxcma0351 Rodriguez LagotekNovant Health / [facility] [id number] Urea nitrogen/Creatinine mass ratio 22 mg/mg Normal 11- [facility] Work Phone: Comment on above: PATIENT WAS FASTINGP ERFORMED BY: [facility] Dtbbak8311 [facility] [id number] TSH (25729)Ordered By: [employer] Barrel Handler on 12-01-2013 Thyrotropin Qn 1.040 {uIU/mL} Normal 0.450-4.50 0 [facility] Work Phone: Comment on above: PATIENT WAS FASTINGP ERFORMED BY: [facility] Ogdqex3540 [facility] [id number] URINE IBRAHIMA CULTURE (TY COL COUNT) (77246)Ordered By: Dobie Man on 12-01-2013 Bacteria identified Cx Nom (U) Escherichia coli Normal [facility] Work Phone: Comment on above: Greater than 100,000 colony forming units per mL PATIENT NOT FASTINGP ERFORMED BY: [facility] Slwffs7313 [facility] [id number] Information: SRC:UR [id number] Bacteria identified Cx Nom (U) Final report Normal [facility] Work Phone: Comment on above: PATIENT NOT FASTINGP ERFORMED BY: [facility] Lbbeam1550 [facility] [id number] Information: SRC:UR [id number] Other Antibiotic [facility] [employer] prehensive Internal Medicine Work Phone: Comment on above: S = Susceptibl e; I = Intermediate; R = Resistant P = Positive; N = Negative MICS are expressed in micrograms per mL Antibiotic RSLT#1 RSLT#2 RSLT#3 RSLT#4Amoxicillin/Clavulanic Acid SAmpicillin SCefepime SCeftriaxone SCefuroxime SCephalothin SCiprofloxacin SErtapenem SGentamicin SImipenem SLevofloxacin SNitrofurantoin SPiperacillin STetracycline STobramycin STrimethoprim/Sulfa S PATIENT NOT FASTINGP ERFORMED BY: ORTIZ [facility] Yqflft2014 [address] RoadDublin [place] [id number] Information: SRC:UR M56123 Urinalysis, Office (91797)Or dered By: Jacinta Patel on 12-01-2013 Bilirubin [...] Internal Medicine Work Phone: Vitamin D Hydroxy (35552)Ord ered By: Dobie Man on 12-01-2013 25-Hydroxyvitamin D2+25-Hydroxyvitamin D3 mass conc 38.9 ng/mL Normal 30.0-100.0 [facility] Work Phone: Comment on above: Vitamin D deficiency has been defined by the [place] of[place]icine and an Endocrine Society practice guideline as alevel of serum 25-OH vitamin D less than 20 ng/mL (1,2).The Endocrine Society went on to further define vitamin Dinsufficiency as a level between 21 and 29 ng/mL (2).1. IOM ([place] of [employer]). 2010. Dietary reference intakes for calcium and D. [place]: The National Academies Press.2. Allie MF, Emile NC, Natalie POOLE, et al. Evaluation, treatment, and prevention of vitamin D deficiency: an Endocrine Society clinical practice guideline. JCEM. 2010; 96(7):1911-30. PATIENT WAS FASTINGP ERFORMED BY: [place] [id number] Lab Report: PTon 04-19-2013 INR in blood by coagulation 1.0 {INR} Normal [facility] Work Phone: prothrombin time, actual/normal, ratio 12.8 SECONDS Normal 11.9-14.4 [facility] Work Phone: Lab Report: PTTon 04-19-2013 aPTT 29.8 s Normal 24.1-36.2 [facility] Work Phone: Replaced Document: Escobar ROMERO Observationson 04-19-2013 Pulse (Heart Rate) 421 ms Invalid Interpretation Code [facility] Work Phone: URINE IBRAHIMA CULTURE-TY COL C OUNT (88290)Ordered By: Dobie Man on 04-18-2013 Bacteria identified Cx Nom (U) Final report Normal [facility] Work Phone: Comment on above: PATIENT NOT FASTINGP ERFORMED BY: [place] [id number] Information: SRC:UR [id number] Bacteria identified Cx Nom (U) NG36 Normal [facility] Work Phone: Comment on above: No growth in 36 - 48 hours. PATIENT NOT FASTINGP ERFORMED BY: [employer] [employer] [place] [id number] Information: SRC:UR Q72465 Urinalysis, Office (53487)Or dered By: Jacinta Patel on 04-15-2013 Bilirubin [...] 02-05-20 13 Albumin 4.0 g/dL Normal 3.4-5.0 [facility] Work Phone: Bilirubin (direct) 0.12 mg/dL Normal 0.00-0.30 [facility] Work Phone: Bilirubin (total) 0.40 mg/dL Normal 0.00-1.00 [facility] Work Phone: URINE IBRAHIMA CULTURE (TY COL COUNT) (64856)Ordered By: Dobie Man on 09-30-2012 Bacteria identified Cx Nom (U) Escherichia coli Normal [facility] Work Phone: Comment on above: Greater than 100,000 colony forming units per mL PATIENT NOT FASTINGP ERFORMED BY: ORTIZ [facility] Kyygre9819 [facility] [id number] Information: SRC:UR [id number] Bacteria identified Cx Nom (U) Final report Normal [facility] Work Phone: Comment on above: PATIENT NOT FASTINGP ERFORMED BY: ORTIZ [facility] Htjyeh1282 [address] RoadDublin [place] [id number] Information: SRC:UR [id number] Other Antibiotic [facility] prehensive Internal Medicine Work Phone: Comment on above: S = Susceptibl e; I = Intermediate; R = Resistant P = Positive; N = Negative MICS are expressed in micrograms per mL Antibiotic RSLT#1 RSLT#2 RSLT#3 RSLT#4Amoxicillin/Clavulanic Acid SAmpicillin SCefazolin SCefepime SCeftriaxone SCefuroxime SCephalothin SCiprofloxacin SESBL NErtapenem SGentamicin SImipenem SLevofloxacin SNitrofurantoin SPiperacillin STetracycline STobramycin STrimethoprim/Sulfa S PATIENT NOT FASTINGP ERFORMED BY: ORTIZ [facility] Vcobiy8828 Rodriguez RoadNovant Health / N[facility]MC [id number] Information: SRC:UR [id number] Urinalysis, Office (58865)Or dered By: Alyson Dixon on 09-30-2012 Bilirubin [...] [facility] Work Phone: Alkaline Phosphatase (90052) Ordered By: Dobie Man on 02-25-2012 ALP enzyme act/vol 67 [iU]/L Normal 25-[address] [facility] Internal Medicine Work Phone: Comment on above: PATIENT NOT FASTINGP ERFORMED BY: [employer]6370 [facility] [id number] CALCIFIDIOL (33882) VIT D 25 Ordered By: Dobie Man on 02-25-2012 25-Hydroxyvitamin D2+25-Hydroxyvitamin D3 mass conc 45.8 ng/mL Normal 30.0-100.0 [facility] Work Phone: Comment on above: Vitamin D deficiency has been defined by the [place] of[place]icine and an Endocrine Society practice guideline as alevel of serum 25-OH vitamin D less than 20 ng/mL (1,2).The Endocrine Society went on to further define vitamin Dinsufficiency as a level between 21 and 29 ng/mL (2).1. IOM ([place] [employer]). 2010. Dietary reference intakes for calcium and D. [place]: The National Academies Press.2. Allie MF, Emile [place], Natalie POOLE, et al. Evaluation, treatment, and prevention of vitamin D deficiency: an Endocrine Society clinical practice guideline. JCEM. 2010; 96(7):1911-30. 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 02-16-2012 MCHC 34.6 % Invalid Interpretation Code [facility] Work Phone: CBC (AUTO) (04934)Ordered By : Dobie Man on 10-14-2010 Erythrocyte distribution width Ratio (RBC) 13.5 % Normal 11.7-15.0 [facility] Work Phone: Comment on above: PATIENT NOT FASTINGP ERFORMED BY: CB [facility] Fzgaiq2764 Rodriguez RoadDublin [place] [id number] Hematocrit Volume Fraction (Bld) 40.4 % Normal 34.0-44.0 [facility] Work Phone: Comment on above: PATIENT NOT FASTINGP ERFORMED BY: CB [facility] Tqlycr1623 [address] [place] [id number] Hemoglobin mass conc (Bld) 13.7 g/dL Normal 11.5-15.0 [facility] Work Phone: Comment on above: PATIENT NOT FASTINGP ERFORMED BY: CB [facility] Wglmdp7972 Rodriguez RoadDublin [place] [id number] MCH Entitic mass (RBC) 29.5 pg Normal 27.0-34.0 [facility] Internal Medicine Work Phone: Comment on above: PATIENT NOT FASTINGP ERFORMED BY: CB [facility] Kltbdu8067 Rodriguez RoadDublin [place] [id number] MCHC mass conc (RBC) 33.9 g/dL Normal 32.0-36.0 [facility] Internal Medicine Work Phone: Comment on above: PATIENT NOT FASTINGP ERFORMED BY: CB [facility] Vfyfra3916 [address] RoadDublin [place] [id number] MCV Entitic volume (RBC) 87 fL Normal 80-98 [facility] Work Phone: Comment on above: PATIENT NOT FASTINGP ERFORMED BY: CB [facility] Cwblul5074 [address] RoadDublin [place] [id number] Platelets #/vol (Bld) 280 {x10E3/uL} Normal 140-415 [facility] Work Phone: Comment on above: PATIENT NOT FASTINGP ERFORMED BY: ORTIZ [place]6370 [facility] [id number] RBC #/vol (Bld) 4.64 {x10E6/uL} Normal 3.80-5.10 Comp rehensive Internal Medicine Work Phone: Comment on above: PATIENT NOT FASTINGP ERFORMED BY: ORTIZ Hou Qmwocd0447 [facility] [id number] WBC #/vol (Bld) 6.2 {x10E3/uL} Normal 4.0-10.5 Compr ensive Internal Medicine Work Phone: Comment on above: PATIENT NOT FASTINGP ERFORMED BY: ORTIZ Crowelin6370 [facility] [id number] METABOLIC PANEL, COMPREHENSI VE (09711)Ordered By: Dobie Man on 10-14-2010 Albumin mass conc 4.4 g/dL Normal 3.5-4.8 Compreh bannerive Internal Medicine Work Phone: Comment on above: PATIENT NOT FASTINGP ERFORMED BY: ORTIZ Crowelin6370 [facility] [id number] Information: [id number] Albumin/Globulin mass ratio 1.8 {ratio} Normal 1.1-2.5 [facility] Work Phone: Comment on above: PATIENT NOT FASTINGP ERFORMED BY: ORTIZ LabKellie Hzkdxq4345 [facility] [id number] Information: [id number] ALP enzyme act/vol 84 [iU]/L Normal 25-[address] [facility] Internal Medicine Work Phone: Comment on above: PATIENT NOT FASTINGP ERFORMED BY: ORTIZ Hou Qkjszd2850 [facility] [id number] Information: [id number] ALT enzyme act/vol 13 [iU]/L Normal 0-[address] [facility] Internal Medicine Work Phone: Comment on above: PATIENT NOT FASTINGP ERFORMED BY: ORTIZ [facility] Rthdwl7419 Rodriguez RoadDublin [place] [id number] Information: [id number] AST enzyme act/vol 13 [iU]/L Normal 0-40 Compre hensive Internal Medicine Work Phone: Comment on above: PATIENT NOT FASTINGP ERFORMED BY: CB [facility] Nxezpq3429 [address] Roadblin [place] [id number] Information: [id number] Bilirubin mass conc 0.2 mg/dL Normal 0.0-1.2 Compr ehensive Internal Medicine Work Phone: Comment on above: PATIENT NOT FASTINGP ERFORMED BY: ORTIZ [facility] Llqnzu0360 [address] [place] [id number] Information: [id number] Calcium mass conc 10.4 mg/dL Abnormal 8.6-10.2 Compreh ensive Internal Medicine Work Phone: Comment on above: PATIENT NOT FASTINGP ERFORMED BY: CB [facility] Wzfbti5580 Rodriguez RoadCarteret Health Carein [place] [id number] Information: [id number] Chloride molar conc 101 mmol/L Normal 97-108 Compr ensive Internal Medicine Work Phone: Comment on above: PATIENT NOT FASTINGP ERFORMED BY: CB [facility] Jvasms4823 [address] [facility] [place] [id number] Information: [id number] CO2 molar conc 28 mmol/L Normal 20-32 Comprehens trupti Internal Medicine Work Phone: Comment on above: PATIENT NOT FASTINGP ERFORMED BY: CB [facility] Slrsig2090 [address]Dublin [place] [id number] Information: [id number] Creatinine mass conc 0.70 mg/dL Normal 0.57-1.00 Comp [facility] Work Phone: Comment on above: PATIENT NOT FASTINGP ERFORMED BY: CB [facility] Yteeph8014 Rodriguez RoadDublin [place] [id number] Information: [id number] GFR/1.73 sq M predicted among blacks MDRD [...] PATIENT NOT FASTINGP ERFORMED BY: ORTIZ [facility] Hiqucn7520 [facility] [id number] Information: 973110,[id number] GFR/1.73 sq M.predicted MDRD (S/P/Bld) [Vol rate/Area] mL/min/{1.73_m2} Normal [facility] Work Phone: Comment on above: PATIENT NOT FASTINGP ERFORMED BY: ORTIZ [facility] Fzyxyj8543 [facility] [id number] Information: [id number] GFR/1.73 sq M.predicted MDRD vol rate/area mL/min/{1.73_m2} Normal [facility] Work Phone: Comment on above: PATIENT NOT FASTINGP ERFORMED BY: ORTIZ [facility] Ivagnc3177 [facility] [id number] Information: [id number] Globulin mass conc (S) 2.5 g/dL Normal 1.5-4.5 Co mprehensive Internal Medicine Work Phone: Comment on above: PATIENT NOT FASTINGP ERFORMED BY: ORTIZ [facility] Oaenxp7147 [facility] [id number] Information: [id number] Glucose mass conc 88 mg/dL Normal 65-99 Compreh ensive Internal Medicine Work Phone: Comment on above: PATIENT NOT FASTINGP ERFORMED BY: ORTIZ [facility] Dnabst4072 [address] [facility] [id number] Information: [id number] Potassium molar conc 4.6 mmol/L Normal 3.5-5.2 Comp rehensive Internal Medicine Work Phone: Comment on above: PATIENT NOT FASTINGP ERFORMED BY: ORTIZ LabCoJersey Shore University Medical CenterQmrcia7910 [facility] [id number] Information: [id number] Protein mass conc 6.9 g/dL Normal 6.0-8.5 Compreh ensive Internal Medicine Work Phone: Comment on above: PATIENT NOT FASTINGP ERFORMED BY: ORTIZ [facility] Opzgln8876 [facility] [id number] Information: 431672,H02618 Sodium molar conc 140 mmol/L Normal 135-145 Compreh ensive Internal Medicine Work Phone: Comment on above: PATIENT NOT FASTINGP ERFORMED BY: LabProm[facility]6370 [facility] [id number] Information: [id number] Urea nitrogen mass conc 9 mg/dL Normal 8-27 [facility] Work Phone: Comment on above: PATIENT NOT FASTINGP ERFORMED BY: AmeyaJersey Shore University Medical CenterOgzoca6717 [facility] [id number] Information: [id number] Urea nitrogen/Creatinine mass ratio 13 mg/mg Normal 11-26 [facility] Work Phone: Comment on above: PATIENT NOT FASTINGP ERFORMED BY: [facility] Liszyz4752 [facility] [id number] Information: [id number] TSH ([id number])Ordered By: Samantha Montelongo on 10-14-2010 Thyrotropin Qn 1.320 {uIU/mL} Normal 0.450-4.50 0 [facility] Work Phone: Comment on above: PATIENT NOT FASTINGP ERFORMED BY: LabCoJersey Shore University Medical CenterXpokhd3251 [facility] [id number] URINALYSIS W/O MICRO ([id number]) Ordered By: Dobie Man on 10-14-2010 Appearance Nom (U) Clear Normal Compre hensive Internal Medicine Work Phone: Comment on above: PATIENT NOT FASTINGP ERFORMED BY: ORTIZ MeenaAleksandr CroweNskphy64[address] [place] [id number] Bilirubin Ql (U) Negative Normal Comprehe nsive Internal Medicine Work Phone: Comment on above: PATIENT NOT FASTINGP ERFORMED BY: ORTIZ LabAleksandr CroweUknbkz7532 [address] [facility] [place] [id number] Color Nom (U) Yellow Normal Comprehensi ve Internal Medicine Work Phone: Comment on above: PATIENT NOT FASTINGP ERFORMED BY: ORTIZ MeenaAleksandr CroweIvolxg2957 [address] [facility] [id number] Glucose Ql (U) Negative Normal Comprehens trupti Internal Medicine Work Phone: Comment on above: PATIENT NOT FASTINGP ERFORMED BY: ORTIZ Crowelin6370 [address] [facility] [id number] Hemoglobin Ql (U) Negative Normal Compreh ensive Internal Medicine Work Phone: Comment on above: PATIENT NOT FASTINGP ERFORMED BY: ORTIZ Crowelin6370 [address] [facility] [id number] Ketones Ql (U) Negative Normal Comprehens trupti Internal Medicine Work Phone: Comment on above: PATIENT NOT FASTINGP ERFORMED BY: ORTIZ Crowelin6370 [address] [facility] [id number] Leukocyte esterase Test strip Ql (U) Negative Normal [facility] Work Phone: Comment on above: PATIENT NOT FASTINGP ERFORMED BY: ORTIZ LabAleksandr CroweYeawmz2023 [address] [facility] [id number] Microscopic observation LM Nom (Urine sed) MICRON Normal [facility] Work Phone: Comment on above: Microscopic follows if indicated. PATIENT NOT FASTINGP ERFORMED BY: ORTIZ LabKellie Qzagdg1758 [address] [facility] [id number] Nitrite Ql (U) Negative Normal Comprehens trupti Internal Medicine Work Phone: Comment on above: PATIENT NOT FASTINGP ERFORMED BY: ORTIZ Chester[address] [facility] [id number] pH (U) 6.5 [pH] Normal 5.0-7.5 [facility] Work Phone: Comment on above: PATIENT NOT FASTINGP ERFORMED BY: ORTIZ Chester6370 [address] [facility] [id number] Protein Ql (U) Negative Normal Comprehens trupti Internal Medicine Work Phone: Comment on above: PATIENT NOT FASTINGP ERFORMED BY: ORTIZ Chester6[address] [facility] [id number] Specific gravity Relative Density (U) 1.020 1 Normal 1.005-1.03 0 [facility] Work Phone: Comment on above: PATIENT NOT FASTINGP ERFORMED BY: ORTIZ Chester6[address] [facility] [id number] Urobilinogen Test strip mass conc (U) 0.2 mg/dL Normal 0.0-1.9 Comprehensiv e Internal Medicine Work Phone: Comment on above: PATIENT NOT FASTINGP ERFORMED BY: ORTIZ Chester6370 [facility] [id number] VITAMIN B-12 (CYANOCOBALAMIN ) (14635)Ordered By: Dobie Man on 10-14-2010 Cobalamin (Vitamin B12) mass conc 246 pg/mL Normal 211-946 [facility] Work Phone: Comment on above: PATIENT NOT FASTINGP ERFORMED BY: ORTIZ [facility] Bynazr1773 [address] [facility] [id number] LIPID PANEL ([id number])Ordered B y: Dobie Man on 12-14-2009 Cholesterol in HDL mass conc 54 mg/dL Normal [facility] Work Phone: Comment on above: According to ATP-III Guidelines, HDL-C >59 mg/dL is considered anegative risk factor for CHD. PATIENT WAS FASTINGP ERFORMED BY: LabCo Hkimeo4266 [facility] [id number] Information: [id number] Cholesterol in LDL mass conc 111 mg/dL Abnormal 0-99 [facility] Work Phone: Comment on above: PATIENT WAS FASTINGP ERFORMED BY: [facility] Ccxjov3820 [facility] [id number] Information: [id number],[id number] Cholesterol in LDL/Cholesterol in HDL mass ratio 2.1 {ratio_units} Normal 0.0-3.2 [facility] Work Phone: Comment on above: PATIENT WAS FASTINGP ERFORMED BY: [facility] Ihiygv7517 [facility] [id number] Information: [id number] Cholesterol in VLDL mass conc 21 mg/dL Normal 5-40 [facility] Work Phone: Comment on above: PATIENT WAS FASTINGP ERFORMED BY: Lab[facility] Yzuqrq8574 [facility] [id number] Information: [id number] Cholesterol mass conc 186 mg/dL Normal 100-199 [facility] Internal Medicine Work Phone: Comment on above: PATIENT WAS FASTINGP ERFORMED BY: Lab[facility] Iuxtrx3849 [facility] [id number] Information: [id number] Triglyceride mass conc 103 mg/dL Normal 0-149 Co [facility] Internal Medicine Work Phone: Comment on above: PATIENT WAS FASTINGP ERFORMED BY: [facility] Wxignd7481 [facility] [id number] Information: [id number] TSH ([id number])Ordered By: Samantha Montelongo on 12-14-2009 Thyrotropin Qn 1.680 {uIU/mL} Normal 0.450-4.50 0 [facility] Work Phone: Comment on above: PATIENT WAS FASTINGP ERFORMED BY: LabPromedica [facility] Hospital6370 [facility] [id number] CBC WITH MANUAL DIFF ([id number]) Ordered By: Dobie Man on 12-13-2009 Basophils #/vol (Bld) 0.0 {x10E3/uL} Normal 0.0-0.2 [facility] Work Phone: Comment on above: PATIENT NOT FASTINGP ERFORMED BY: [facility] Jorunr7283 [address] [facility] [id number] Information: [id number] Basophils/100 WBC (Bld) 0 % Normal 0-3 [facility] Work Phone: Comment on above: PATIENT NOT FASTINGP ERFORMED BY: LabCoJersey Shore University Medical CenterQxnvfk4584 [facility] [id number] Information: [id number] Eosinophils #/vol (Bld) 0.0 {x10E3/uL} Normal 0.0-0.4 [facility] Work Phone: Comment on above: PATIENT NOT FASTINGP ERFORMED BY: LabCoJersey Shore University Medical CenterGkcibi9678 [facility] [id number] Information: 637989,Q43793 Eosinophils/100 WBC (Bld) 0 % Normal 0-7 [facility] Work Phone: Comment on above: PATIENT NOT FASTINGP ERFORMED BY: LabCoJersey Shore University Medical CenterGjzqkq6607 [facility] [id number] Information: 891994,[id number] Erythrocyte distribution width Ratio (RBC) 13.9 % Normal 11.7-15.0 [facility] Work Phone: Comment on above: PATIENT NOT FASTINGP ERFORMED BY: [facility] Hkoczy6044 [address] [facility] [id number] Information: [id number],[id number] Hematocrit Volume Fraction (Bld) 38.9 % Normal 34.0-44.0 [facility] Work Phone: Comment on above: PATIENT NOT FASTINGP ERFORMED BY: [facility] Aswkzo4163 [facility] [id number] Information: [id number] Hemoglobin mass conc (Bld) 13.7 g/dL Normal 11.5-15.0 [facility] Work Phone: Comment on above: PATIENT NOT FASTINGP ERFORMED BY: ORTIZ RobledoCo Ccifrh9415 [facility] [id number] Information: [id number] Lymphocytes #/vol (Bld) 1.3 {x10E3/uL} Normal 0.7-4.5 [facility] Work Phone: Comment on above: PATIENT NOT FASTINGP ERFORMED BY: Lab[address] [id number] Information: [id number] Lymphocytes/100 WBC (Bld) 20 % Normal 14-46 [facility] Work Phone: Comment on above: PATIENT NOT FASTINGP ERFORMED BY: [address] [id number] Information: [id number],[id number] MCH Entitic mass (RBC) 31.3 pg Normal 27.0-34.0 [facility] Internal Medicine Work Phone: Comment on above: PATIENT NOT FASTINGP ERFORMED BY: ORTIZ [facility] HospitalCoPhilip [place]ille 8523070 [facility] [id number] Information: [id number] MCHC mass conc (RBC) 35.2 g/dL Normal 32.0-36.0 [facility] Internal Medicine Work Phone: Comment on above: PATIENT NOT FASTINGP ERFORMED BY: LabCoJersey Shore University Medical CenterZqsvxk2258 [facility] [id number] Information: [id number] MCV Entitic volume (RBC) 89 fL Normal 80-98 [facility] Internal Medicine Work Phone: Comment on above: PATIENT NOT FASTINGP ERFORMED BY: [address] [id number] Information: [id number] Monocytes #/vol (Bld) 0.4 {x10E3/uL} Normal 0.1-1.0 [facility] Work Phone: Comment on above: PATIENT NOT FASTINGP ERFORMED BY: ORTIZ LabCoaustyn ChesterKwabkw3692 [facility] [id number] Information: [id number],S36912 Monocytes/100 WBC (Bld) 6 % Normal 4-13 [facility] Work Phone: Comment on above: PATIENT NOT FASTINGP ERFORMED BY: LabCoJersey Shore University Medical CenterAeumdb8298 [facility] [id number] Information: 555303,[id number] Neutrophils #/vol (Bld) 5.0 {x10E3/uL} Normal 1.8-7.8 [facility] Work Phone: Comment on above: PATIENT NOT FASTINGP ERFORMED BY: LabCoJersey Shore University Medical CenterTqoiev7447 [facility] [id number] Information: [id number],V08092 Neutrophils/100 WBC (Bld) 74 % Normal 40-74 [facility] Work Phone: Comment on above: PATIENT NOT FASTINGP ERFORMED BY: [facility] Hjnqmm6364 [facility] [id number] Information: [id number],Q61112 Platelets #/vol (Bld) 228 {x10E3/uL} Normal 140-415 [facility] Work Phone: Comment on above: PATIENT NOT FASTINGP ERFORMED BY: LabCoJersey Shore University Medical CenterIklzsq3205 [facility] [id number] Information: [id number] RBC #/vol (Bld) 4.38 {x10E6/uL} Normal 3.80-5.10 Comp [facility] Internal Medicine Work Phone: Comment on above: PATIENT NOT FASTINGP ERFORMED BY: LabCoJersey Shore University Medical CenterHmimhk9282 [facility] [id number] Information: 439453,[id number] WBC #/vol (Bld) 6.7 {x10E3/uL} Normal 4.0-10.5 Compr [facility] Internal Medicine Work Phone: Comment on above: PATIENT NOT FASTINGP ERFORMED BY: ORTIZ Chester6370 [facility] [id number] Information: [id number] METABOLIC PANEL, COMPREHENSI VE (10196)Ordered By: Dobie Man on 12-13-2009 Albumin mass conc 4.1 g/dL Normal 3.5-4.8 Compreh bannerive Internal Medicine Work Phone: Comment on above: PATIENT NOT FASTINGP ERFORMED BY: ORTIZ [facility] Ehiypb8350 [facility] [id number] Albumin/Globulin mass ratio 1.7 {ratio} Normal 1.1-2.5 [facility] Work Phone: Comment on above: PATIENT NOT FASTINGP ERFORMED BY: ORTIZ [facility] Gnasec9539 [facility] [id number] ALP enzyme act/vol 82 [iU]/L Normal 25-165 [facility] Work Phone: Comment on above: PATIENT NOT FASTINGP ERFORMED BY: ORTIZ [facility] Cktmwr2307 [facility] [id number] ALT enzyme act/vol 12 [iU]/L Normal 0-40 [facility] Work Phone: Comment on above: PATIENT NOT FASTINGP ERFORMED BY: CB [facility] Gsxrnc7187 [address] [facility] [id number] AST enzyme act/vol 19 [iU]/L Normal 0-40 [facility] Work Phone: Comment on above: PATIENT NOT FASTINGP ERFORMED BY: CB [facility] Kptepm1651 [address] [facility] [id number] Bilirubin mass conc 0.2 mg/dL Normal 0.1-1.2 Compr [facility] Internal Medicine Work Phone: Comment on above: PATIENT NOT FASTINGP ERFORMED BY: CB [facility] Pispha7983 [facility] [id number] Calcium mass conc 9.6 mg/dL Normal 8.6-10.2 Compreh ensive Internal Medicine Work Phone: Comment on above: PATIENT NOT FASTINGP ERFORMED BY: ORTIZ Crowelin6370 [facility] [id number] Chloride molar conc 104 mmol/L Normal 97-108 Compr ehensive Internal Medicine Work Phone: Comment on above: PATIENT NOT FASTINGP ERFORMED BY: ORTIZ LabKellie Lznonq4164 [facility] [id number] CO2 molar conc 25 mmol/L Normal 20-32 Comprehens trupti Internal Medicine Work Phone: Comment on above: PATIENT NOT FASTINGP ERFORMED BY: ORTIZ Hou Tzsibu4613 [facility] [id number] Creatinine mass conc 0.71 mg/dL Normal 0.57-1.00 Comp rehensive Internal Medicine Work Phone: Comment on above: PATIENT NOT FASTINGP ERFORMED BY: ORTIZ Hou Zfjpef4237 [facility] [id number] GFR/1.73 sq M predicted among blacks MDRD [...] PATIENT NOT FASTINGP ERFORMED BY: ORTIZ [facility] Qgppfs7812 [facility] [id number] GFR/1.73 sq M.predicted MDRD (S/P/Bld) [Vol rate/Area] mL/min/{1.73_m2} Normal [facility] Work Phone: Comment on above: PATIENT NOT FASTINGP ERFORMED BY: ORTIZ [facility] Qyougr7492 [address] [facility] [place] [id number] GFR/1.73 sq M.predicted MDRD vol rate/area mL/min/{1.73_m2} Normal [facility] Work Phone: Comment on above: PATIENT NOT FASTINGP ERFORMED BY: ORTIZ [facility] Bqcjxq2239 [address] [facility] [id number] Globulin mass conc (S) 2.4 g/dL Normal 1.5-4.5 Co mprehensive Internal Medicine Work Phone: Comment on above: PATIENT NOT FASTINGP ERFORMED BY: ORTIZ [facility] Fyglpr5600 [address] [facility] [id number] Glucose mass conc 89 mg/dL Normal 65-99 Compreh ensive Internal Medicine Work Phone: Comment on above: PATIENT NOT FASTINGP ERFORMED BY: ORTIZ [facility] Fjtnrv5826 [address] [facility] [id number] Potassium molar conc 5.0 mmol/L Normal 3.5-5.2 Comp rehensive Internal Medicine Work Phone: Comment on above: PATIENT NOT FASTINGP ERFORMED BY: ORTIZ [facility] Gpqmcm0547 [address] [facility] [place] [id number] Protein mass conc 6.5 g/dL Normal 6.0-8.5 Compreh ensive Internal Medicine Work Phone: Comment on above: PATIENT NOT FASTINGP ERFORMED BY: ORTIZ [facility] Esidro3797 [address] [facility] [id number] Sodium molar conc 142 mmol/L Normal 135-145 Compreh ensive Internal Medicine Work Phone: Comment on above: PATIENT NOT FASTINGP ERFORMED BY: ORTIZ [facility] Giihox7848 [address] [facility] [place] [id number] Urea nitrogen mass conc 10 mg/dL Normal 5-26 [facility] Work Phone: Comment on above: PATIENT NOT FASTINGP ERFORMED BY: ORTIZ [facility] Yhzbuz4661 [address] [facility] [place] [id number] Urea nitrogen/Creatinine mass ratio 14 mg/mg Normal 8-27 [facility] Work Phone: Comment on above: PATIENT NOT FASTINGP ERFORMED BY: [facility] Ilsvgv3085 [facility] [id number] Urinalysis, Office ([id number])Or dered By: Radha Velez on 09-21-2008 Bilirubin [...] Escherichia coli [facility] Work Phone: Vital Signs Date Time Vital Sign Value Performing Clinician Facility 03-02-2025 18:29-0400 Body height 157.[address] Yesika Faust MD Work Phone: [facility] 05-05-2019 10:14-0400 BMI (Body Mass Index) 33.02 kg/m2 Mirella Mccracken Comprehens trupti Internal Medicine Work Phone: 05-05-2019 10:14-0400 Body weight 74.16 kg Mirella Mccracken [facility] Internal Medicine Work Phone: 05-05-2019 10:14-0400 BP Diastolic 80 mm[Hg] Mirella Mccracken [facility] Internal Medicine Work Phone: Comment on above: Patient Position: Sitting; Cuff Location : Left Arm; Cuff Size: Large 05-05-2019 10:14-0400 BP Systolic 138 mm[Hg] Mirella Mccracken [facility] Internal Medicine Work Phone: Comment on above: Patient Position: Sitting; Cuff Location : Left Arm; Cuff Size: Large 05-05-2019 10:14-0400 BSA (Body Surface Area) 1.69 m2 Mirella Mccracken [facility] Internal Medicine Work Phone: 05-05-2019 10:14-0400 Height 149.86 cm Mirella Mccracken [facility] Internal Medicine Work Phone: 05-05-2019 10:14-0400 Pulse (Heart Rate) 68 /min Mirella Mccracken [facility] Internal Medicine Work Phone: Comment on above: Pattern: Regular 05-05-2019 10:14-0400 Pulse Oximetry 95 % Mirella Mccracken [facility] Internal Medicine Work Phone: Comment on above: Room air 05-05-2019 10:14-0400 Respiratory Rate 18 /min Mirella Mccracken [facility] Internal Medicine Work Phone: Comment on above: Pattern: Unlabored 03-15-2019 09:59-0400 BMI (Body Mass Index) 33.4 kg/m2 Mirella Solano [facility] Internal Medicine Work Phone: 03-15-2019 09:59-0400 Body weight 75.01 kg Mirella Mccracken [facility] Internal Medicine Work Phone: 03-15-2019 09:59-0400 BP Diastolic 82 mm[Hg] Mirella Mccracken [facility] Internal Medicine Work Phone: Comment on above: Patient Position: Sitting; Cuff Location : Left Arm; Cuff Size: Large 03-15-2019 09:59-0400 BP Systolic 168 mm[Hg] Mirella Mccracken [facility] Internal Medicine Work Phone: Comment on above: Patient Position: Sitting; Cuff Location : Left Arm; Cuff Size: Large 03-15-2019 09:59-0400 BSA (Body Surface Area) 1.7 m2 Mirella Mccracken [facility] Internal Medicine Work Phone: 03-15-2019 09:59-0400 Height 149.86 cm Mirella Mccracken [facility] Internal Medicine Work Phone: 03-15-2019 09:59-0400 Pulse (Heart Rate) 88 /min Mirella Mccracken [facility] Internal Medicine Work Phone: Comment on above: Pattern: Regular 03-15-2019 09:59-0400 Pulse Oximetry 98 % Mirella Mccracken [facility] Internal Medicine Work Phone: Comment on above: Room air 03-15-2019 09:59-0400 Respiratory Rate 18 /min Mirella Mccracken [facility] Internal Medicine Work Phone: Comment on above: Pattern: Unlabored 01-21-2018 08:25-0400 BMI (Body Mass Index) 29.34 kg/m2 Mirella Mccracken [facility] Internal Medicine Work Phone: 01-21-2018 08:25-0400 Body weight 65.89 kg Mirella Mccracken [facility] Internal Medicine Work Phone: 01-21-2018 08:25-0400 BP Diastolic 84 mm[Hg] Mirella Mccracken [facility] Internal Medicine Work Phone: Comment on above: Patient Position: Sitting; Cuff Location : Left Arm; Cuff Size: Large 01-21-2018 08:25-0400 BP Systolic 128 mm[Hg] Mirella Mccracken [facility] Internal Medicine Work Phone: Comment on above: Patient Position: Sitting; Cuff Location : Left Arm; Cuff Size: Large 01-21-2018 08:25-0400 BSA (Body Surface Area) 1.61 m2 Mirella Mccracken [facility] Internal Medicine Work Phone: 01-21-2018 08:25-0400 Height 149.86 cm Mirella Mccracken [facility] Internal Medicine Work Phone: 01-21-2018 08:25-0400 Pulse (Heart Rate) 84 /min Mirella Mccracken [facility] Internal Medicine Work Phone: Comment on above: Pattern: Regular 01-21-2018 08:25-0400 Pulse Oximetry 98 % Mirella Mccracken [facility] Internal Medicine Work Phone: Comment on above: Room air 01-21-2018 08:25-0400 Respiratory Rate 18 /min Mirella Mccracken [facility] Internal Medicine Work Phone: Comment on above: Pattern: Unlabored 01-21-2018 08:25-0400 Weight 65.89 kg Mirella Mccracken [facility] Internal Medicine Work Phone: 11-09-2017 14:35-0500 BMI (Body Mass Index) 28.91 kg/m2 Mirella Mccracken [facility] Internal Medicine Work Phone: 11-09-2017 14:35-0500 Body weight 64.92 kg Mirella Mccracken [facility] Internal Medicine Work Phone: 11-09-2017 14:35-0500 BP Diastolic 90 mm[Hg] Mirella Mccracken [facility] Internal Medicine Work Phone: Comment on above: Patient Position: Sitting; Cuff Location : Left Arm; Cuff Size: Large 11-09-2017 14:35-0500 BP Systolic 148 mm[Hg] Mirella Mccracken [facility] Internal Medicine Work Phone: Comment on above: Patient Position: Sitting; Cuff Location : Left Arm; Cuff Size: Large 11-09-2017 14:35-0500 BSA (Body Surface Area) 1.6 m2 Mirella Mccracken [facility] Internal Medicine Work Phone: 11-09-2017 14:35-0500 Height 149.86 cm Mirella Mccracken [facility] Internal Medicine Work Phone: 11-09-2017 14:35-0500 Pulse (Heart Rate) 67 /min Mirella Mccracken [facility] Internal Medicine Work Phone: Comment on above: Pattern: Regular 11-09-2017 14:35-0500 Pulse Oximetry 98 % Mirelal Mccracken [facility] Internal Medicine Work Phone: Comment on above: Room air 11-09-2017 14:35-0500 Respiratory Rate 18 /min Mirella Mccracken [facility] Internal Medicine Work Phone: Comment on above: Pattern: Unlabored 11-09-2017 14:35-0500 Weight 64.92 kg Mirella Mccracken [facility] Internal Medicine Work Phone: 10-15-2017 09:58-0500 BMI (Body Mass Index) 28.91 kg/m2 Mirella Mccracken [facility] Internal Medicine Work Phone: 10-15-2017 09:58-0500 Body weight 64.92 kg Mirella Mccracken [facility] Internal Medicine Work Phone: 10-15-2017 09:58-0500 BP Diastolic 78 mm[Hg] Mirella Mccracken [facility] Internal Medicine Work Phone: Comment on above: Patient Position: Sitting; Cuff Location : Left Arm; Cuff Size: Large 10-15-2017 09:58-0500 BP Systolic 146 mm[Hg] Mirella Mccracken [facility] Internal Medicine Work Phone: Comment on above: Patient Position: Sitting; Cuff Location : Left Arm; Cuff Size: Large 10-15-2017 09:58-0500 BSA (Body Surface Area) 1.6 m2 Mirella Mccracken [facility] Internal Medicine Work Phone: 10-15-2017 09:58-0500 Height 149.86 cm Mirella Mccracken [facility] Internal Medicine Work Phone: 10-15-2017 09:58-0500 Pulse (Heart Rate) 74 /min Mirella Mccracken [facility] Internal Medicine Work Phone: Comment on above: Pattern: Regular 10-15-2017 09:58-0500 Pulse Oximetry 99 % Mirella Mccracken [facility] Internal Medicine Work Phone: Comment on above: Room air 10-15-2017 09:58-0500 Respiratory Rate 18 /min Mirella Mccracken [facility] Internal Medicine Work Phone: Comment on above: Pattern: Unlabored 10-15-2017 09:58-0500 Weight 64.92 kg Mirella Mccracken [facility] Internal Medicine Work Phone: 09-18-2017 09:08-0500 BMI (Body Mass Index) 28.91 kg/m2 Mirella Mccracken [facility] Internal Medicine Work Phone: 09-18-2017 09:08-0500 Body weight 64.92 kg Mirella Mccracken [facility] Internal Medicine Work Phone: 09-18-2017 09:08-0500 BP Diastolic 82 mm[Hg] Mirella Mccracken [facility] Internal Medicine Work Phone: Comment on above: Patient Position: Sitting; Cuff Location : Left Arm; Cuff Size: Large 09-18-2017 09:08-0500 BP Systolic 128 mm[Hg] Mirella Mccracken [facility] Internal Medicine Work Phone: Comment on above: Patient Position: Sitting; Cuff Location : Left Arm; Cuff Size: Large 09-18-2017 09:08-0500 BSA (Body Surface Area) 1.6 m2 Mirella Mccracken [facility] Internal Medicine Work Phone: 09-18-2017 09:08-0500 Height 149.86 cm Mirella Mccracken [facility] Internal Medicine Work Phone: 09-18-2017 09:08-0500 Pulse (Heart Rate) 72 /min Mirella Mccracken [facility] Internal Medicine Work Phone: Comment on above: Pattern: Regular 09-18-2017 09:08-0500 Pulse Oximetry 98 % Mirella Mccracken [facility] Internal Medicine Work Phone: Comment on above: Room air 09-18-2017 09:08-0500 Respiratory Rate 18 /min Mirella Mccracken [facility] Internal Medicine Work Phone: Comment on above: Pattern: Unlabored 09-18-2017 09:08-0500 Weight 64.92 kg Mirella Mccracken [facility] Internal Medicine Work Phone: 06-05-2017 11:24-0400 [...] (Body Mass Index) 29.29 kg/m2 Mirella Mccracken [facility] Internal Medicine Work Phone: 05-07-2017 11:04-0400 Body [facility] 65.77 [facility] Work [facility]: 05-07-2017 11:04-0400 BP Diastolic 82 mm[Hg] [facility] Work [facility]: Comment on above: Patient Position: Sitting; Cuff Location : Left Arm; Cuff Size: Standard 05-07-2017 11:04-0400 BP Systolic 128 mm[Hg] [facility] Work [facility]: Comment on above: Patient Position: Sitting; Cuff Location : Left Arm; Cuff Size: Standard 05-07-2017 11:04-0400 BSA (Body Surface Area) 1.61 m2 [facility] Work Phone: 05-07-2017 11:04-0400 Height 149.86 cm Mirella Mccracken [facility] Internal Medicine Work Phone: 05-07-2017 11:04-0400 Pulse (Heart Rate) 65 /min Mirella Mccracken [facility] Internal Medicine Work Phone: Comment on above: Pattern: Regular 05-07-2017 11:04-0400 Pulse Oximetry 98 % Mirella Mccracken [facility] Internal Medicine Work Phone: Comment on above: Room air 05-07-2017 11:04-0400 Respiratory Rate 18 /min Mirella Mccracken [facility] Internal Medicine Work Phone: Comment on above: Pattern: Unlabored 05-07-2017 11:04-0400 Weight 65.77 kg Mirella Mccracken [facility] Internal Medicine Work Phone: 03-26-2017 08:06-0400 BMI (Body Mass Index) 29.29 kg/m2 Mirella Mccracken [facility] Internal Medicine Work Phone: 03-26-2017 08:06-0400 Body Temperature 97.5 [degF] Mirella Mccracken [facility] Internal Medicine Work Phone: Comment on above: Method: Temporal 03-26-2017 08:06-0400 Body weight 65.77 kg Mirella Mccracken [facility] Internal Medicine Work Phone: 03-26-2017 08:06-0400 BP Diastolic 84 mm[Hg] Mirella Mccracken [facility] Internal Medicine Work Phone: Comment on above: Patient Position: Sitting; Cuff Location : Left Arm; Cuff Size: Large 03-26-2017 08:06-0400 BP Systolic 126 mm[Hg] Mirella Mccracken [facility] Internal Medicine Work Phone: Comment on above: Patient Position: Sitting; Cuff Location : Left Arm; Cuff Size: Large 03-26-2017 08:06-0400 BSA (Body Surface Area) 1.61 m2 Mirella Mccracken [facility] Internal Medicine Work Phone: 03-26-2017 08:06-0400 Height 149.86 cm [facility] Work Phone: 03-26-2017 08:06-0400 Pulse (Heart Rate) 82 /min Mirella Mccracken [facility] Internal Medicine Work Phone: Comment on above: Pattern: Regular 03-26-2017 08:06-0400 Pulse Oximetry 98 % Mirella Mccracken [facility] Internal Medicine Work Phone: Comment on above: Room air 03-26-2017 08:06-0400 Respiratory Rate 16 /min Mirella Mccracken [facility] Internal Medicine Work Phone: Comment on above: Pattern: Unlabored 03-26-2017 08:06-0400 Weight 65.77 kg Mirella Mccracken [facility] Internal Medicine Work Phone: 12-25-2016 10:08-0400 BMI (Body Mass Index) 29.51 kg/m2 Mirella Mccracken [facility] Internal Medicine Work Phone: 12-25-2016 10:08-0400 Body weight 66.28 kg Mirella Mccracken [facility] Internal Medicine Work Phone: 12-25-2016 10:08-0400 BP Diastolic 80 mm[Hg] Mirella Mccracken [facility] Internal Medicine Work Phone: Comment on above: Patient Position: Sitting; Cuff Location : Left Arm; Cuff Size: Large 12-25-2016 10:08-0400 BP Systolic 122 mm[Hg] Mirella Mccracken [facility] Internal Medicine Work Phone: Comment on above: Patient Position: Sitting; Cuff Location : Left Arm; Cuff Size: Large 12-25-2016 10:08-0400 BSA (Body Surface Area) 1.61 m2 Mirella Mccracken [facility] Internal Medicine Work Phone: 12-25-2016 10:08-0400 Height 149.86 cm Mirella Mccracken [facility] Internal Medicine Work Phone: 12-25-2016 10:08-0400 Pulse (Heart Rate) 69 /min Mirella Mccracken [facility] Internal Medicine Work Phone: Comment on above: Pattern: Regular 12-25-2016 10:08-0400 Pulse Oximetry 98 % Mirella Mccracken [facility] Internal Medicine Work Phone: Comment on above: Room air 12-25-2016 10:08-0400 Respiratory Rate 18 /min Mirella Mccracken [facility] Internal Medicine Work Phone: Comment on above: Pattern: Unlabored 12-25-2016 10:08-0400 Weight 66.28 kg Mirella Mccracken [facility] Internal Medicine Work Phone: 11-03-2016 14:09-0500 BSA (Body Surface Area) 1.59 m2 [facility] Work Phone: 09-25-2016 07:51-0500 BMI (Body Mass Index) 29.94 kg/m2 Mirella Mccracken [facility] Internal Medicine Work Phone: 09-25-2016 07:51-0500 Body Temperature 97.6 [degF] Mirella Mccracken [facility] Internal Medicine Work Phone: 09-25-2016 07:51-0500 Body weight 67.25 kg Mirella Mccrcaken [facility] Internal Medicine Work Phone: 09-25-2016 07:51-0500 BP Diastolic 78 mm[Hg] Mirella Mccracken [facility] Internal Medicine Work Phone: Comment on above: Patient Position: Sitting; Cuff Location : Left Arm; Cuff Size: Standard 09-25-2016 07:51-0500 BP Systolic 122 mm[Hg] Mirella Mccracken [facility] Internal Medicine Work Phone: Comment on above: Patient Position: Sitting; Cuff Location : Left Arm; Cuff Size: Standard 09-25-2016 07:51-0500 BSA (Body Surface Area) 1.62 m2 Mirella Mccracken [facility] Internal Medicine Work Phone: 09-25-2016 07:51-0500 Height 149.86 cm Mirella Mccracken [facility] Internal Medicine Work Phone: 09-25-2016 07:51-0500 Pulse (Heart Rate) 94 /min Mirella Mccracken [facility] Internal Medicine Work Phone: Comment on above: Pattern: Regular 09-25-2016 07:51-0500 Pulse Oximetry 96 % Mirella Mccracken [facility] Internal Medicine Work Phone: Comment on above: Room air 09-25-2016 07:51-0500 Respiratory Rate 17 /min Mirella Mccracken [facility] Internal Medicine Work Phone: Comment on above: Pattern: Unlabored 09-25-2016 07:51-0500 Weight 67.25 kg Mirella Mccracken [facility] Internal Medicine Work Phone: 06-25-2016 08:52-0400 BMI (Body Mass Index) 29.54 kg/m2 Mirella Mccracken [facility] Internal Medicine Work Phone: 06-25-2016 08:52-0400 Body weight 66.34 kg Mirella Mccracken [facility] Internal Medicine Work Phone: 06-25-2016 08:52-0400 BP Diastolic 60 mm[Hg] Mirella Mccracken [facility] Internal Medicine Work Phone: Comment on above: Patient Position: Sitting; Cuff Location : Left Arm; Cuff Size: Standard 06-25-2016 08:52-0400 BP Systolic 110 mm[Hg] Mirella Mccracken [facility] Internal Medicine Work Phone: Comment on above: Patient Position: Sitting; Cuff Location : Left Arm; Cuff Size: Standard 06-25-2016 08:52-0400 BSA (Body Surface Area) 1.61 m2 Mirella Mccracken [facility] Internal Medicine Work Phone: 06-25-2016 08:52-0400 Height 149.86 cm Mirella Mccracken [facility] Internal Medicine Work Phone: 06-25-2016 08:52-0400 Pulse (Heart Rate) 72 /min Mirella Mccracken [facility] Internal Medicine Work Phone: Comment on above: Pattern: Regular 06-25-2016 08:52-0400 Pulse Oximetry 100 % Mirella Mccracken [facility] Internal Medicine Work Phone: Comment on above: Room air 06-25-2016 08:52-0400 Respiratory Rate 18 /min Mirella Mccracken [facility] Internal Medicine Work Phone: Comment on above: Pattern: Unlabored 06-25-2016 08:52-0400 Weight 66.34 kg Mirella Mccracken [facility] Internal Medicine Work Phone: 05-21-2016 08:08-0400 BMI (Body Mass Index) 29.39 kg/m2 Mirella Mccracken [facility] Internal Medicine Work Phone: 05-21-2016 08:08-0400 Body Temperature 97.2 [degF] Mirella Mccracken [facility] Internal Medicine Work Phone: 05-21-2016 08:08-0400 Body weight 66 kg Mirella Mccracken [facility] Internal Medicine Work Phone: 05-21-2016 08:08-0400 BP Diastolic 82 mm[Hg] Mirella Mccracken [facility] Internal Medicine Work Phone: Comment on above: Patient Position: Sitting; Cuff Location : Left Arm; Cuff Size: Standard 05-21-2016 08:08-0400 BP Systolic 124 mm[Hg] Mirella Mccracken [facility] Internal Medicine Work Phone: Comment on above: Patient Position: Sitting; Cuff Location : Left Arm; Cuff Size: Standard 05-21-2016 08:08-0400 BSA (Body Surface Area) 1.61 m2 Mirella Mccracken [facility] Internal Medicine Work Phone: 05-21-2016 08:08-0400 Height 149.86 cm Mirella Mccracken [facility] Internal Medicine Work Phone: 05-21-2016 08:08-0400 Pulse (Heart Rate) 80 /min Mirella Mccracken [facility] Internal Medicine Work Phone: Comment on above: Pattern: Regular 05-21-2016 08:08-0400 Pulse Oximetry 98 % Mirella Mccracken [facility] Internal Medicine Work Phone: Comment on above: Room air 05-21-2016 08:08-0400 Respiratory Rate 16 /min Mirella Mccracken [facility] Internal Medicine Work Phone: Comment on above: Pattern: Unlabored 05-21-2016 08:08-0400 Weight 66 kg Mirella Mccracken [facility] Internal Medicine Work Phone: 01-04-2016 09:52-0400 BMI (Body Mass Index) 29.59 kg/m2 Mirella [facility] Work Phone: 01-04-2016 09:52-0400 Body weight 66.45 kg Mirella Mccracken [facility] Internal Medicine Work Phone: 01-04-2016 09:52-0400 BP Diastolic 64 mm[Hg] Mirella Mccracken [facility] Internal Medicine Work Phone: Comment on above: Patient Position: Sitting; Cuff Location : Left Arm; Cuff Size: Standard 01-04-2016 09:52-0400 BP Systolic 110 mm[Hg] Mirella Mccracken [facility] Internal Medicine Work Phone: Comment on above: Patient Position: Sitting; Cuff Location : Left Arm; Cuff Size: Standard 01-04-2016 09:52-0400 BSA (Body Surface Area) 1.62 m2 Mirella Mccracken [facility] Internal Medicine Work Phone: 01-04-2016 09:52-0400 Height 149.86 cm Mirella Mccracken [facility] Internal Medicine Work Phone: 01-04-2016 09:52-0400 Pulse (Heart Rate) 64 /min Mirella Mccracken [facility] Internal Medicine Work Phone: Comment on above: Pattern: Regular 01-04-2016 09:52-0400 Pulse Oximetry 97 % Mirella Mccracken [facility] Internal Medicine Work Phone: Comment on above: Room air 01-04-2016 09:52-0400 Respiratory Rate 18 /min Mirella Mccracken [facility] Internal Medicine Work Phone: Comment on above: Pattern: Unlabored 01-04-2016 09:52-0400 Weight 66.45 kg Mirella Mccracken [facility] Internal Medicine Work Phone: 12-06-2015 09:19-0400 BMI (Body Mass Index) 29.89 kg/m2 Mirella [facility] Internal Medicine Work Phone: 12-06-2015 09:19-0400 Body weight 67.13 kg Mirella Mccracken [facility] Internal Medicine Work Phone: 12-06-2015 09:19-0400 BP Diastolic 78 mm[Hg] Mirella Mccracken [facility] Internal Medicine Work Phone: Comment on above: Patient Position: Sitting; Cuff Location : Left Arm; Cuff Size: Large 12-06-2015 09:19-0400 BP Systolic 122 mm[Hg] Mirella Mccracken [facility] Internal Medicine Work Phone: Comment on above: Patient Position: Sitting; Cuff Location : Left Arm; Cuff Size: Large 12-06-2015 09:19-0400 BSA (Body Surface Area) 1.62 m2 Mirella Mccracken [facility] Internal Medicine Work Phone: 12-06-2015 09:19-0400 Height 149.86 cm Mirella Mccracken [facility] Internal Medicine Work Phone: 12-06-2015 09:19-0400 Pulse (Heart Rate) 73 /min Mirella Mccracken [facility] Internal Medicine Work Phone: Comment on above: Pattern: Regular 12-06-2015 09:19-0400 Pulse Oximetry 99 % Mirella Mccracken [facility] Internal Medicine Work Phone: Comment on above: Room air 12-06-2015 09:19-0400 Respiratory Rate 18 /min Mirella Mccracken [facility] Internal Medicine Work Phone: Comment on above: Pattern: Unlabored 12-06-2015 09:19-0400 Weight 67.13 kg Mirella Mccracken [facility] Internal Medicine Work Phone: 11-29-2015 09:09-0400 BMI (Body Mass Index) 29.72 kg/m2 Mirella Mccracken [facility] Internal Medicine Work Phone: 11-29-2015 09:09-0400 Body Temperature 98.2 [degF] Mirella Mccracken [facility] Internal Medicine Work Phone: Comment on above: Method: Oral 11-29-2015 09:09-0400 Body weight 66.74 kg Mirella Mccracken [facility] Internal Medicine Work Phone: 11-29-2015 09:09-0400 BP Diastolic 58 mm[Hg] Mirella Mccracken [facility] Internal Medicine Work Phone: Comment on above: Patient Position: Sitting; Cuff Location : Left Arm; Cuff Size: Large 11-29-2015 09:09-0400 BP Systolic 100 mm[Hg] Mirella Mccracken [facility] Internal Medicine Work Phone: Comment on above: Patient Position: Sitting; Cuff Location : Left Arm; Cuff Size: Large 11-29-2015 09:09-0400 BSA (Body Surface Area) 1.62 m2 Mirella Mccracken [facility] Internal Medicine Work Phone: 11-29-2015 09:09-0400 Height 149.86 cm Mirella Mccracken [facility] Internal Medicine Work Phone: 11-29-2015 09:09-0400 Pulse (Heart Rate) 71 /min Mirella Mccracken [facility] Internal Medicine Work Phone: Comment on above: Pattern: Regular 11-29-2015 09:09-0400 Pulse Oximetry 98 % Mirella Mccracken [facility] Internal Medicine Work Phone: Comment on above: Room air 11-29-2015 09:09-0400 Respiratory Rate 18 /min Mirella Mccracken [facility] Internal Medicine Work Phone: Comment on above: Pattern: Unlabored 11-29-2015 09:09-0400 Weight 66.74 kg Mirella Mccracken [facility] Internal Medicine Work Phone: 10-24-2015 10:01-0500 BMI (Body Mass Index) 30.78 kg/m2 Mirella Mccracken [facility] Internal Medicine Work Phone: Comment on above: [facility] 10-24-2015 10:01-0500 Body weight 69.12 kg Mirella Mccracken [facility] Internal Medicine Work Phone: Comment on above: [facility]stein [facility] 10-24-2015 10:01-0500 BP Diastolic 82 mm[Hg] [facility] Internal Medicine Work Phone: Comment on above: Patient Position: Sitting; Cuff Location : Left Arm; Cuff Size: Large [facility]-24-2015 10:01-0500 BP Systolic 124 mm[Hg] [facility] Internal Medicine Work Phone: Comment on above: Patient Position: Sitting; Cuff Location : Left Arm; Cuff Size: Large [facility] 10-24-2015 10:01-0500 BSA (Body Surface Area) 1.64 m2 [facility] Internal Medicine Work Phone: Comment on above: [facility] 10-24-2015 10:01-0500 Height 149.86 cm [facility] Internal Medicine Work Phone: Comment on above[facility] 10:01-0500 Pulse (Heart Rate) 66 /min [facility] Internal Medicine Work Phone: Comment on above: Pattern: Regular [facility] 10-24-2015 10:01-0500 Pulse Oximetry 98 % [facility] Medicine Work Phone: Comment on above: Room air [facility] 10-24-2015 10:01-0500 Respiratory Rate 18 /min [facility] Internal Medicine Work Phone: Comment on above: Pattern: Unlabored Dr[facility] 10-24-2015 10:01-0500 Weight 69.12 kg [facility] Medicine Work Phone: Comment on above: [facility]-26-2015 10:22-0500 BMI (Body Mass Index) 32.32 kg/m2 [facility] Internal Medicine Work Phone: 07-26-2015 10:22-0500 Body weight 72.58 kg Mirella Mccracken [facility] Internal Medicine Work Phone: 07-26-2015 10:22-0500 BP Diastolic 80 mm[Hg] Mirella Mccracken [facility] Internal Medicine Work Phone: Comment on above: Patient Position: Sitting; Cuff Location : Left Arm; Cuff Size: Large 07-26-2015 10:22-0500 BP Systolic 138 mm[Hg] Mirella Mccracken [facility] Work Phone: Comment on above: Patient Position: Sitting; Cuff Location : Left Arm; Cuff Size: Large 07-26-2015 10:22-0500 BSA (Body Surface Area) 1.68 m2 Mirelal Mccracken [facility] Internal Medicine Work Phone: 07-26-2015 10:22-0500 Height 149.86 cm Mirella Mccracken [facility] Internal Medicine Work Phone: 07-26-2015 10:22-0500 Pulse (Heart Rate) 62 /min Mirella Mccracken [facility] Internal Medicine Work Phone: Comment on above: Pattern: Regular 07-26-2015 10:22-0500 Pulse Oximetry 98 % Mirella Mccracken [facility] Internal Medicine Work Phone: Comment on above: Room air 07-26-2015 10:22-0500 Respiratory Rate 18 /min Mirella Mccracken [facility] Internal Medicine Work Phone: Comment on above: Pattern: Unlabored 07-26-2015 10:22-0500 Weight 72.58 kg Mirella Mccracken [facility] Internal Medicine Work Phone: 07-06-2015 09:03-0400 Body weight 72.12 kg Mirella Mccracken [facility] Medicine Work Phone: 07-06-2015 09:03-0400 BP Diastolic 78 mm[Hg] Mirella Mccracken [facility] Internal Medicine Work Phone: Comment on above: Patient Position: Sitting; Cuff Location : Left Arm; Cuff Size: Large 07-06-2015 09:03-0400 BP Systolic 122 mm[Hg] Mirella Mccracken [facility] Internal Medicine Work Phone: Comment on above: Patient Position: Sitting; Cuff Location : Left Arm; Cuff Size: Large 07-06-2015 09:03-0400 Pulse (Heart Rate) 68 /min Mirella Mccracken [facility] Internal Medicine Work Phone: Comment on above: Pattern: Regular 07-06-2015 09:03-0400 Pulse Oximetry 98 % Mirella Mccracken [facility] Medicine Work Phone: Comment on above: Room air 07-06-2015 09:03-0400 Respiratory Rate 18 /min Mirella Mccracken [facility] Medicine Work Phone: Comment on above: Pattern: Unlabored 07-06-2015 09:03-0400 Weight 72.12 kg [facility] [facility] Work Phone: 04-19-2015 10:10-0400 BMI (Body Mass Index) 31.02 kg/m2 Mirella Mccracken [facility] Internal Medicine Work Phone: 04-19-2015 10:10-0400 Body Temperature 97.5 [degF] Mirella Mccracken [facility] Internal Medicine Work Phone: Comment on above: Method: Temporal 04-19-2015 10:10-0400 Body weight 69.67 kg Mirella Mccracken [facility] Internal Medicine Work Phone: 04-19-2015 10:10-0400 BP Diastolic 82 mm[Hg] Mirella Mccracken [facility] Internal Medicine Work Phone: Comment on above: Patient Position: Sitting; Cuff Location : Left Arm; Cuff Size: Standard 04-19-2015 10:10-0400 BP Systolic 124 mm[Hg] Mirella Mccracken [facility] Internal Medicine Work Phone: Comment on above: Patient Position: Sitting; Cuff Location : Left Arm; Cuff Size: Standard 04-19-2015 10:10-0400 BSA (Body Surface Area) 1.65 m2 Mirella Mccracken [facility] Internal Medicine Work Phone: 04-19-2015 10:10-0400 Height 149.86 cm Mirella Mccracken [facility] Internal Medicine Work Phone: 04-19-2015 [id number] Pulse (Heart Rate) 62 /min Mirella Mccracken [facility] Internal Medicine Work Phone: Comment on above: Pattern: Regular 04-19-2015 10:[id number] Pulse Oximetry 98 % Mirella Mccracken [facility] Internal Medicine Work Phone: Comment on above: Room air 04-19-2015 10:100400 Respiratory Rate 16 /min Mirella Mccracken [facility] Internal Medicine Work Phone: Comment on above: Pattern: Unlabored 04-19-2015 10:10-0400 Weight 69.67 kg Mirella Mccracken [facility] Internal Medicine Work Phone: 01-11-2015 10:29-0400 BMI (Body Mass Index) 31.2 kg/m2 Mirella Mccracken [facility] Internal Medicine Work Phone: 01-11-2015 10:29-0400 Body weight 70.08 kg Mirella Mccracken [facility] Internal Medicine Work Phone: 01-11-2015 10:29-0400 BP Diastolic 80 mm[Hg] Mirella Mccracken [facility] Internal Medicine Work Phone: Comment on above: Patient Position: Sitting; Cuff Location : Left Arm; Cuff Size: Standard 01-11-2015 10:290400 BP Systolic 128 mm[Hg] Mirella Mccracken [facility] Internal Medicine Work Phone: Comment on above: Patient Position: Sitting; Cuff Location : Left Arm; Cuff Size: Standard 01-11-2015 10:290400 BSA (Body Surface Area) 1.65 m2 Mirella Mccracken [facility] Internal Medicine Work Phone: 01-11-2015 10:290400 Height 149.86 cm Mirella Mccracken [facility] Internal Medicine Work Phone: 01-11-2015 10:29-0400 Pulse (Heart Rate) 56 /min Mirella Mccracken [facility] Internal Medicine Work Phone: [...] on above: Method: Oral [facility] 03/2014[facility] 10-12-2014 10:10-0500 Body weight 70.76 kg Mirella Mccracken [facility] Work Phone: Comment on above: [facility] 03/2014[facility] 10-12-2014 10:10-0500 BP Diastolic 82 mm[Hg] Mirella Mccracken [facility] Work Phone: Comment on above: Patient Position: Sitting; Cuff Location : Left Arm; Cuff Size: Large [facility] [place] [facility] 03/2014[facility] 10-12-2014 10:10-0500 BP Systolic 132 mm[Hg] Mirella Mccracken [facility] Work Phone: Comment on above: Patient Position: Sitting; Cuff Location : Left Arm; Cuff Size: Large [facility] 03/2014[facility] 10-12-2014 10:10-0500 Pulse (Heart Rate) 61 /min Mirella Mccracken [facility] Work Phone: Comment on above: Pattern: Regular [facility] [place] [facility] 03/2014[facility] 10-12-2014 10:10-0500 Pulse Oximetry 96 % Mirella Mccracken [facility] Work Phone: Comment on above: Room air [facility] [place] [facility] 03/2014[facility] 10-12-2014 10:10-0500 Respiratory Rate 18 /min Mirella Mccracken [facility] Work Phone: Comment on above: Pattern: Unlabored [facility] [place] [facility] 03/2014[facility] 10-12-2014 10:10-0500 Weight 70.76 kg Mirella Mccracken [facility] Work Phone: Comment on above: [facility] 03/2014[facility] 08-31-2014 11:25-0500 Body weight 68.66 kg Mirella Mccracken [facility] Work Phone: 08-31-2014 11:25-0500 BP Diastolic 82 mm[Hg] Mirella Mccracken [facility] Work Phone: Comment on above: Patient Position: Sitting; Cuff Location : Left Arm; Cuff Size: Large 08-31-2014 11:25-0500 BP Systolic 138 mm[Hg] Mirella Mccracken [facility] Internal Medicine Work Phone: Comment on above: Patient Position: Sitting; Cuff Location : Left Arm; Cuff Size: Large 08-31-2014 11:25-0500 Pulse (Heart Rate) 56 /min Mirella Mccracken [facility] Internal Medicine Work Phone: Comment on above: Pattern: Regular 08-31-2014 11:25-0500 Respiratory Rate 18 /min Mirella Mccracken [facility] Internal Medicine Work Phone: Comment on above: Pattern: Unlabored 08-31-2014 11:25-0500 Weight 68.66 kg Mirella Mccracken [facility] Internal Medicine Work Phone: 08-14-2014 14:10-0500 Body Temperature 97.3 [degF] Mirella Mccracken [facility] Internal Medicine Work Phone: Comment on above: Method: Oral 08-14-2014 14:10-0500 Body weight 69.15 kg Mirella Mccracken [facility] Internal Medicine Work Phone: 08-14-2014 14:10-0500 BP Diastolic 72 mm[Hg] Mirella Mccracken [facility] Internal Medicine Work Phone: Comment on above: Patient Position: Sitting; Cuff Location : Left Arm; Cuff Size: Standard 08-14-2014 14:10-0500 BP Systolic 132 mm[Hg] Mirella Mccracken [facility] Internal Medicine Work Phone: Comment on above: Patient Position: Sitting; Cuff Location : Left Arm; Cuff Size: Standard 08-14-2014 14:10-0500 Pulse (Heart Rate) 53 /min Mirella Mccracken [facility] Internal Medicine Work Phone: Comment on above: Pattern: Regular 08-14-2014 14:10-0500 Pulse Oximetry 97 % Mirella Mccracken [facility] Internal Medicine Work Phone: Comment on above: Room air 08-14-2014 14:10-0500 Respiratory Rate 16 /min Mirella Mccracken [facility] Internal Medicine Work Phone: Comment on above: Pattern: Unlabored 08-14-2014 14:10-0500 Weight 69.15 kg Mirella Mccracken [facility] Internal Medicine Work Phone: 07-26-2014 10:15-0500 BMI (Body Mass Index) 30.55 kg/m2 Mirella Mccracken [facility] Internal Medicine Work Phone: 07-26-2014 10:15-0500 Body Temperature 97.4 [degF] Mirella Mccracken [facility] Internal Medicine Work Phone: Comment on above: Method: Oral 07-26-2014 10:15-0500 Body weight 68.61 kg Mirella Mccracken [facility] Internal Medicine Work Phone: 07-26-2014 10:15-0500 BP Diastolic 70 mm[Hg] Mirella Mccracken [facility] Internal Medicine Work Phone: Comment on above: Patient Position: Sitting; Cuff Location : Left Arm; Cuff Size: Standard 07-26-2014 10:15-0500 BP Systolic 110 mm[Hg] Mirella Mccracken [facility] Internal Medicine Work Phone: Comment on above: Patient Position: Sitting; Cuff Location : Left Arm; Cuff Size: Standard 07-26-2014 10:15-0500 BSA (Body Surface Area) 1.64 m2 Mirella Mccracken [facility] Internal Medicine Work Phone: 07-26-2014 10:15-0500 Height 149.86 cm Mirella Mccracken [facility] Internal Medicine Work Phone: 07-26-2014 10:15-0500 Pulse (Heart Rate) 66 /min Mirella Mccracken [facility] Internal Medicine Work Phone: Comment on above: Pattern: Regular 07-26-2014 10:15-0500 Pulse Oximetry 95 % Mirella Mccracken [facility] Internal Medicine Work Phone: Comment on above: Room air 07-26-2014 10:15-0500 Respiratory Rate 15 /min Mirella Mccracken [facility] Internal Medicine Work Phone: 07-26-2014 [...] 07-25-2014 14:56-0500 Height 149.86 cm Mirella Mccracken [facility] Internal Medicine Work Phone: 07-25-2014 14:56-0500 [...] 07-25-2014 14:56-0500 Weight 68.61 kg Mirella Mccracken [facility] Internal Medicine Work Phone: 07-13-2014 12:20-0400 BMI (Body Mass Index) 30.5 kg/m2 Mirella [facility] Internal Medicine Work Phone: 07-13-2014 12:20-0400 Body weight 68.49 kg Mirella Mccracken [facility] Internal Medicine Work Phone: 07-13-2014 12:20-0400 BP Diastolic 78 mm[Hg] Mirella Mccracken [facility] Internal Medicine Work Phone: Comment on above: Patient Position: Sitting; Cuff Location : Left Arm; Cuff Size: Large 07-13-2014 12:20-0400 BP Systolic 138 mm[Hg] Mirella Mccracken [facility] Internal Medicine Work Phone: Comment on above: Patient Position: Sitting; Cuff Location : Left Arm; Cuff Size: Large 07-13-2014 12:20-0400 BSA (Body Surface Area) 1.64 m2 Mirella Mccracken [facility] Internal Medicine Work Phone: 07-13-2014 12:20-0400 Height 149.86 cm Mirella Mccracken [facility] Internal Medicine Work Phone: 07-13-2014 12:20-0400 Pulse (Heart Rate) 58 /min Mirella Mccracken [facility] Internal Medicine Work Phone: Comment on above: Pattern: Regular 07-13-2014 12:20-0400 Pulse Oximetry 96 % Mirella Mccracken [facility] Internal Medicine Work Phone: Comment on above: Room air 07-13-2014 12:20-0400 Respiratory Rate 20 /min Mirella Mccracken [facility] Internal Medicine Work Phone: Comment on above: Pattern: Unlabored 07-13-2014 12:20-0400 Weight 68.49 kg Mirella Mccracken [facility] Internal Medicine Work Phone: 04-17-2014 11:27-0400 BMI (Body Mass Index) 30.59 kg/m2 Mirella Solano [facility] Internal Medicine Work Phone: 04-17-2014 11:27-0400 Body weight 68.69 kg Mirella Mccracken [facility] Internal Medicine Work Phone: 04-17-2014 11:27-0400 BP Diastolic 70 mm[Hg] Mirella Mccracken [facility] Internal Medicine Work Phone: Comment on above: Patient Position: Sitting; Cuff Location : Left Arm; Cuff Size: Large 04-17-2014 11:27-0400 BP Systolic 124 mm[Hg] Mirella Mccracken [facility] Internal Medicine Work Phone: Comment on above: Patient Position: Sitting; Cuff Location : Left Arm; Cuff Size: Large 04-17-2014 11:27-0400 BSA (Body Surface Area) 1.64 m2 Mirella Mccracken [facility] Internal Medicine Work Phone: 04-17-2014 11:27-0400 Height 149.86 cm Mirella Mccracken [facility] Internal Medicine Work Phone: 04-17-2014 11:27-0400 Pulse (Heart Rate) 72 /min Mirella Mccracken [facility] Internal Medicine Work Phone: Comment on above: Pattern: Regular 04-17-2014 11:27-0400 Pulse Oximetry 97 % Mirella Mccracken [facility] Internal Medicine Work Phone: Comment on above: Room air 04-17-2014 11:27-0400 Respiratory Rate 18 /min Mirella Mccracken [facility] Internal Medicine Work Phone: Comment on above: Pattern: Unlabored 04-17-2014 11:27-0400 Weight 68.69 kg Mirella Mccracken [facility] Internal Medicine Work Phone: 04-06-2014 11:09-0400 BMI (Body Mass Index) 30.59 kg/m2 Mirella Mccracken [facility] Internal Medicine Work Phone: 04-06-2014 11:09-0400 Body weight 68.69 kg Mirella Mccracken [facility] Internal Medicine Work Phone: 04-06-2014 11:09-0400 BP Diastolic 80 mm[Hg] Mirella Mccracken [facility] Internal Medicine Work Phone: Comment on above: Patient Position: Sitting; Cuff Location : Left Arm; Cuff Size: Standard 04-06-2014 11:09-0400 BP Systolic 142 mm[Hg] Mirella Mccracken [facility] Internal Medicine Work Phone: Comment on above: Patient Position: Sitting; Cuff Location : Left Arm; Cuff Size: Standard 04-06-2014 11:090400 BSA (Body Surface Area) 1.64 m2 Mirella Mccracken [facility] Internal Medicine Work Phone: 04-06-2014 11:09-0400 Height 149.86 cm Mirella Mccracken [facility] Internal Medicine Work Phone: 04-06-2014 11:09-0400 Pulse (Heart Rate) 73 /min Mirella Mccracken [facility] Internal Medicine Work Phone: Comment on above: Pattern: Regular 04-06-2014 11:0400 Pulse Oximetry 97 % Mirella Mccracken [facility] Internal Medicine Work Phone: Comment on above: Room air 04-06-2014 11:090400 Respiratory Rate 18 /min Mirella Mccracken [facility] Internal Medicine Work Phone: Comment on above: Pattern: Unlabored 04-06-2014 11:090400 Weight 68.69 kg Mirella Mccracken [facility] Internal Medicine Work Phone: 12-30-2013 10:27-0400 BMI (Body Mass Index) 32.03 kg/m2 Mirella Mccracken [facility] Internal Medicine Work Phone: 12-30-2013 10:27-0400 Body Temperature 98.2 [degF] Mirella Mccracken [facility] Internal Medicine Work Phone: Comment on above: Method: Oral 12-30-2013 10:27-0400 Body weight 71.92 kg Mirella Mccracken [facility] Internal Medicine Work Phone: 12-30-2013 10:27-0400 BP Diastolic 70 mm[Hg] Mirella Mccracken [facility] Internal Medicine Work Phone: Comment on above: Patient Position: Sitting; Cuff Location : Left Arm; Cuff Size: Large 12-30-2013 10:27-0400 BP Systolic 120 mm[Hg] Mirella Mccracken [facility] Internal Medicine Work Phone: Comment on above: Patient Position: Sitting; Cuff Location : Left Arm; Cuff Size: Large 12-30-2013 10:0400 BSA (Body Surface Area) 1.67 m2 Mirella Mccracken [facility] Internal Medicine Work Phone: 12-30-2013 10:27-0400 Height 149.86 cm Mirella Mccracken [facility] Internal Medicine Work Phone: 12-30-2013 10:27-0400 Pulse (Heart Rate) 66 /min Mirella Mccracken [facility] Internal Medicine Work Phone: Comment on above: Pattern: Regular 12-30-2013 10:27-0400 Pulse Oximetry 97 % Mirella Mccracken [facility] Internal Medicine Work Phone: Comment on above: Room air 12-30-2013 10:27-0400 Respiratory Rate 20 /min Mirella Mccracken [facility] Internal Medicine Work Phone: Comment on above: Pattern: Unlabored 12-30-2013 10:0400 Weight 71.92 kg Mirella Mccracken [facility] Internal Medicine Work Phone: 12-22-2013 10:090400 BMI (Body Mass Index) 31.79 kg/m2 Mirella Mccracken [facility] Internal Medicine Work Phone: 12-22-2013 10:090400 Body Temperature 98.2 [degF] Mirella Mccracken [facility] Internal Medicine Work Phone: Comment on above: Method: Oral 12-22-2013 10:0400 Body weight 71.39 kg Mirella Mccracken [facility] Internal Medicine Work Phone: 12-22-2013 10:09-0400 BP Diastolic 60 mm[Hg] Mirella Mccracken [facility] Internal Medicine Work Phone: Comment on above: Patient Position: Sitting; Cuff Location : Left Arm; Cuff Size: Large 12-22-2013 10:09-0400 BP Systolic 104 mm[Hg] Mirella Mccracken [facility] Internal Medicine Work Phone: Comment on above: Patient Position: Sitting; Cuff Location : Left Arm; Cuff Size: Large 12-22-2013 10:09-0400 BSA (Body Surface Area) 1.67 m2 Mirella Mccracken [facility] Internal Medicine Work Phone: 12-22-2013 10:09-0400 Height 149.86 cm Mirella Mccracken [facility] Internal Medicine Work Phone: 12-22-2013 10:09-0400 Pulse (Heart Rate) 65 /min Mirella Mccracken [facility] Internal Medicine Work Phone: Comment on above: Pattern: Regular 12-22-2013 10:09-0400 Pulse Oximetry 98 % Mirella Mccracken [facility] Internal Medicine Work Phone: Comment on above: Room air 12-22-2013 10:09-0400 Respiratory Rate 20 /min Mirella Mccracken [facility] Internal Medicine Work Phone: Comment on above: Pattern: Unlabored 12-22-2013 10:09-0400 Weight 71.39 kg Mirella Mccracken [facility] Internal Medicine Work Phone: 12-01-2013 09:54-0400 BMI (Body Mass Index) 32.32 kg/m2 Mirella Mccracken [facility] Internal Medicine Work Phone: 12-01-2013 09:54-0400 Body Temperature 98.4 [degF] Mirella Mccracken [facility] Internal Medicine Work Phone: Comment on above: Method: Temporal 12-01-2013 09:54-0400 Body weight 72.58 kg Mirella Mccracken [facility] Internal Medicine Work Phone: 12-01-2013 09:54-0400 BP Diastolic 62 mm[Hg] Mirella Mccracken [facility] Internal Medicine Work Phone: Comment on above: Patient Position: Sitting; Cuff Location : Left Arm; Cuff Size: Standard 12-01-2013 09:54-0400 BP Systolic 124 mm[Hg] Mirella Mccracken [facility] Internal Medicine Work Phone: Comment on above: Patient Position: Sitting; Cuff Location : Left Arm; Cuff Size: Standard 12-01-2013 09:54-0400 BSA (Body Surface Area) 1.68 m2 Mirella Mccracken [facility] Internal Medicine Work Phone: 12-01-2013 09:54-0400 Height 149.86 cm Mirella Mccracken [facility] Internal Medicine Work Phone: 12-01-2013 09:54-0400 Pulse (Heart Rate) 69 /min Mirella Mccracken [facility] Internal Medicine Work Phone: Comment on above: Pattern: Regular 12-01-2013 09:54-0400 Pulse Oximetry 97 % Mirella Mccracken [facility] Internal Medicine Work Phone: Comment on above: Room air 12-01-2013 09:54-0400 Respiratory Rate 16 /min Mirella Mccracken [facility] Internal Medicine Work Phone: Comment on above: Pattern: Unlabored 12-01-2013 09:54-0400 Weight 72.58 kg Mirella Mccracken [facility] Internal Medicine Work Phone: 09-23-2013 11:57-0500 BMI (Body Mass Index) 33.01 kg/m2 Mirella Mccracken [facility] Internal Medicine Work Phone: 09-23-2013 11:57-0500 Body weight 74.14 kg Mirella Mccracken [facility] Internal Medicine Work Phone: 09-23-2013 11:57-0500 BP Diastolic 80 mm[Hg] Mirella Mccracken [facility] Internal Medicine Work Phone: Comment on above: Patient Position: Sitting; Cuff Location : Left Arm; Cuff Size: Large 09-23-2013 11:57-0500 BP Systolic 122 mm[Hg] Mirella Mccracken [facility] Internal Medicine Work Phone: Comment on above: Patient Position: Sitting; Cuff Location : Left Arm; Cuff Size: Large 09-23-2013 11:57-0500 BSA (Body Surface Area) 1.69 m2 Mirella Mccracken [facility] Internal Medicine Work Phone: 09-23-2013 11:57-0500 Height 149.86 cm Mirella Mccracken [facility] Internal Medicine Work Phone: 09-23-2013 11:57-0500 Pulse (Heart Rate) 66 /min Mirella Mccracken [facility] Internal Medicine Work Phone: Comment on above: Pattern: Regular 09-23-2013 11:57-0500 Pulse Oximetry 98 % Mirella Mccracken [facility] Internal Medicine Work Phone: Comment on above: Room air 09-23-2013 11:57-0500 Respiratory Rate 18 /min Mirella Mccracken [facility] Internal Medicine Work Phone: Comment on above: Pattern: Unlabored 09-23-2013 11:57-0500 Weight 74.14 kg Mirella Mccracken [facility] Internal Medicine Work Phone: 08-01-2013 10:54-0500 BMI (Body Mass Index) 33.58 kg/m2 Mirella Mccracken [facility] Internal Medicine Work Phone: 08-01-2013 10:54-0500 Body Temperature 98.3 [degF] Mirella Mccracken [facility] Internal Medicine Work Phone: Comment on above: Method: Oral 08-01-2013 10:54-0500 Body weight 75.41 kg Mirella Mccracken [facility] Internal Medicine Work Phone: 08-01-2013 10:54-0500 BP Diastolic 60 mm[Hg] Mirella Mccracken [facility] Internal Medicine Work Phone: Comment on above: Patient Position: Sitting; Cuff Location : Left Arm; Cuff Size: Large 08-01-2013 10:54-0500 BP Systolic 102 mm[Hg] Mirella Mccracken [facility] Internal Medicine Work Phone: Comment on above: Patient Position: Sitting; Cuff Location : Left Arm; Cuff Size: Large 08-01-2013 10:54-0500 BSA (Body Surface Area) 1.7 m2 Mirella Mccracken [facility] Internal Medicine Work Phone: 08-01-2013 10:54-0500 Height 149.86 cm Mirella Mccracken [facility] Internal Medicine Work Phone: 08-01-2013 10:54-0500 Pulse (Heart Rate) 68 /min Mirella Mccracken [facility] Internal Medicine Work Phone: Comment on above: Pattern: Regular 08-01-2013 10:54-0500 Pulse Oximetry 97 % Mirella Mccracken [facility] Internal Medicine Work Phone: Comment on above: Room air 08-01-2013 10:54-0500 Respiratory Rate 20 /min Mirella Mccracken [facility] Internal Medicine Work Phone: Comment on above: Pattern: Unlabored 08-01-2013 10:54-0500 Weight 75.41 kg Mirella Mccracken [facility] Medicine Work Phone: 07-04-2013 09:33-0400 BMI (Body Mass Index) 33.73 kg/m2 Mirella Mccracken [facility] Internal Medicine Work Phone: Comment on above: hearing wntrisha Jones 07-04-2013 09:33-0400 Body Temperature 98.2 [degF] [facility] Work [facility]: Comment on above: Method: Oral hearing denae Jones 07-04-2013 09:33-0400 Body weight 75.75 kg [facility] Work Phone: Comment on above: hearing denae Jones 07-04-2013 09:33-0400 BP Diastolic 62 mm[Hg] Mirella [facility] Internal Medicine Work Phone: Comment on above: Patient Position: Sitting; Cuff Location : Left Arm; Cuff Size: Large adarsh Jones 07-04-2013 09:33-0400 BP Systolic 120 mm[Hg] [facility] Work Phone: Comment on above: Patient Position: Sitting; Cuff Location : Left Arm; Cuff Size: Large adarsh Jones 07-04-2013 09:33-0400 BSA (Body Surface Area) 1.71 m2 Mirella [facility] Internal Medicine Work Phone: Comment on above: hearing denae Jones 07-04-2013 09:33-0400 Height 149.86 cm Mirella [facility] Medicine Work Phone: Comment on above: hearing yazminlvольга Jones 07-04-2013 09:33-0400 Pulse (Heart Rate) 52 /min Mirella Mccracken [facility] Internal Medicine Work Phone: Comment on above: Pattern: Regular hearing wnlvision Dr Samaria Jones 07-04-2013 09:33-0400 Pulse Oximetry 97 % Mirella Mccracken [facility] Internal Medicine Work Phone: Comment on above: Room air hearing [facility]nlvision Dr Samaria Jones 07-04-2013 09:33-0400 Respiratory Rate 20 /min Mirella Mccracken [facility] Internal Medicine Work Phone: Comment on above: Pattern: Unlabored hearing [facility]nl[facility] Dr Samaria Jones 07-04-2013 09:33-0400 Weight 75.75 kg Mirella Mccracken [facility] Internal Medicine Work Phone: Comment on above: hearing wnlvision Dr. Jones 06-27-2013 14:49-0400 BMI (Body Mass Index) 33.73 kg/m2 Mirella Mccracken [facility] Internal Medicine Work Phone: 06-27-2013 14:49-0400 Body weight 75.75 kg Mirella Mccracken [facility] Internal Medicine Work Phone: 06-27-2013 14:49-0400 BP Diastolic 62 mm[Hg] Mirella Mccracken [facility] Internal Medicine Work Phone: Comment on above: Patient Position: Sitting; Cuff Location : Left Arm; Cuff Size: Large 06-27-2013 14:49-0400 BP Systolic 128 mm[Hg] Mirella Mccracken [facility] Internal Medicine Work Phone: Comment on above: Patient Position: Sitting; Cuff Location : Left Arm; Cuff Size: Large 06-27-2013 14:49-0400 BSA (Body Surface Area) 1.71 m2 Mirella Mccracken [facility] Internal Medicine Work Phone: 06-27-2013 14:49-0400 Height 149.86 cm Mirella Mccracken [facility] Internal Medicine Work Phone: 06-27-2013 14:49-0400 Pulse (Heart Rate) 61 /min Mirella Mccracken [facility] Internal Medicine Work Phone: Comment on above: Pattern: Regular 06-27-2013 14:49-0400 Pulse Oximetry 98 % Mirella Mccracken [facility] Internal Medicine Work Phone: Comment on above: Room air 06-27-2013 14:49-0400 Respiratory Rate 20 /min [facility] Internal Medicine Work Phone: Comment on above: Pattern: Unlabored 06-27-2013 14:49-0400 Weight 75.75 kg Mirella Mccracken [facility] Internal Medicine Work Phone: 06-20-2013 12:56-0400 BMI (Body Mass Index) 33.53 kg/m2 Mirella Mccracken [facility] Internal Medicine Work Phone: 06-20-2013 12:56-0400 Body Temperature 97.6 [degF] Mirella Mccracken [facility] Internal Medicine Work Phone: Comment on above: Method: Oral 06-20-2013 12:56-0400 Body weight 75.3 kg Mirella Mccracken [facility] Internal Medicine Work Phone: 06-20-2013 12:56-0400 BP Diastolic 68 mm[Hg] Mirella Mccracken [facility] Internal Medicine Work Phone: Comment on above: Patient Position: Sitting; Cuff Location : Left Arm; Cuff Size: Standard 06-20-2013 12:56-0400 BP Systolic 118 mm[Hg] Mirella Mccracken [facility] Internal Medicine Work Phone: Comment on above: Patient Position: Sitting; Cuff Location : Left Arm; Cuff Size: Standard 06-20-2013 12:56-0400 BSA (Body Surface Area) 1.7 m2 Mirella Mccracken [facility] Internal Medicine Work Phone: 06-20-2013 12:56-0400 Height 149.86 cm Mirella Mccracken [facility] Internal Medicine Work Phone: 06-20-2013 12:56-0400 Pulse (Heart Rate) 68 /min Mirella Mccracken [facility] Internal Medicine Work Phone: Comment on above: Pattern: Regular 06-20-2013 12:56-0400 Respiratory Rate 20 /min Mirella Mccracken [facility] Internal Medicine Work Phone: Comment on above: Pattern: Unlabored 06-20-2013 12:56-0400 Weight 75.3 kg Mirella Mccracken [facility] Internal Medicine Work Phone: 05-20-2013 08:13-0400 BMI (Body Mass Index) 33.63 kg/m2 Mirella Mccracken [facility] Internal Medicine Work Phone: 05-20-2013 08:13-0400 Body weight 75.52 kg Mirella Mccracken [facility] Internal Medicine Work Phone: 05-20-2013 08:13-0400 BP Diastolic 62 mm[Hg] Mirella Mccracken [facility] Internal Medicine Work Phone: Comment on above: Patient Position: Sitting; Cuff Location : Left Arm; Cuff Size: Standard 05-20-2013 08:13-0400 BP Systolic 128 mm[Hg] Mirella Mccracken [facility] Internal Medicine Work Phone: Comment on above: Patient Position: Sitting; Cuff Location : Left Arm; Cuff Size: Standard 05-20-2013 08:13-0400 BSA (Body Surface Area) 1.71 m2 Mirella cMcracken [facility] Internal Medicine Work Phone: 05-20-2013 08:13-0400 Height 149.86 cm Mirella Mccracken [facility] Internal Medicine Work Phone: 05-20-2013 08:13-0400 Pulse (Heart Rate) 60 /min Mirella Mccracken [facility] Internal Medicine Work Phone: Comment on above: Pattern: Regular 05-20-2013 08:13-0400 Respiratory Rate 20 /min Mirella Mccracken [facility] Internal Medicine Work Phone: Comment on above: Pattern: Unlabored 05-20-2013 08:13-0400 Weight 75.52 kg Mirella Mccracken [facility] Internal Medicine Work Phone: 04-22-2013 15:16-0400 BMI (Body Mass Index) 33.63 kg/m2 [facility] Internal Medicine Work Phone: 04-22-2013 15:16-0400 Body Temperature 96 [degF] Mirella Mccracken [facility] Internal Medicine Work Phone: Comment on above: Method: Oral 04-22-2013 15:16-0400 Body weight 75.52 kg Mirella Mccracken [facility] Internal Medicine Work Phone: 04-22-2013 15:16-0400 BP Diastolic 74 mm[Hg] Mirella Mccracken [facility] Internal Medicine Work Phone: Comment on above: Patient Position: Sitting; Cuff Location : Left Arm; Cuff Size: Large 04-22-2013 15:16-0400 BP Systolic 126 mm[Hg] Mirella Mccracken [facility] Internal Medicine Work Phone: Comment on above: Patient Position: Sitting; Cuff Location : Left Arm; Cuff Size: Large 04-22-2013 15:16-0400 BSA (Body Surface Area) 1.71 m2 Mirella Mccracken [facility] Internal Medicine Work Phone: 04-22-2013 15:16-0400 Height 149.86 cm Mirella Mccracken [facility] Internal Medicine Work Phone: 04-22-2013 15:16-0400 Pulse (Heart Rate) 64 /min Mirella Mccracken [facility] Internal Medicine Work Phone: Comment on above: Pattern: Regular 04-22-2013 15:16-0400 Respiratory Rate 18 /min Mirella Mccracken [facility] Internal Medicine Work Phone: Comment on above: Pattern: Unlabored 04-22-2013 15:16-0400 Weight 75.52 kg Mirella Mccracken [facility] Internal Medicine Work Phone: 04-15-2013 15:12-0400 BMI (Body Mass Index) 34.65 kg/m2 Mirella Mccracken [facility] Internal Medicine Work Phone: 04-15-2013 15:12-0400 Body Temperature 98 [degF] Mirella Mccracken [facility] Internal Medicine Work Phone: Comment on above: Method: Oral 04-15-2013 15:12-0400 Body weight 77.82 kg Mirella Mccracken [facility] Internal Medicine Work Phone: 04-15-2013 15:12-0400 BP Diastolic 70 mm[Hg] Mirella Mccracken [facility] Internal Medicine Work Phone: Comment on above: Patient Position: Sitting; Cuff Location : Left Arm; Cuff Size: Standard 04-15-2013 15:12-0400 BP Systolic 120 mm[Hg] Mirella Mccracken [facility] Internal Medicine Work Phone: Comment on above: Patient Position: Sitting; Cuff Location : Left Arm; Cuff Size: Standard 04-15-2013 15:12-0400 BSA (Body Surface Area) 1.73 m2 Mirella Mccracken [facility] Internal Medicine Work Phone: 04-15-2013 15:12-0400 Height 149.86 cm Mirella Mccracken [facility] Internal Medicine Work Phone: 04-15-2013 15:12-0400 Pulse (Heart Rate) 64 /min Mirella Mccracken [facility] Internal Medicine Work Phone: Comment on above: Pattern: Regular 04-15-2013 15:12-0400 Pulse Oximetry 98 % Mirella Mccracken [facility] Internal Medicine Work Phone: Comment on above: Room air 04-15-2013 15:12-0400 Weight 77.82 kg Mirella Mccracken [facility] Internal Medicine Work Phone: 03-31-2013 11:15-0400 BMI (Body Mass Index) 32.96 kg/m2 Mirella Mccracken [facility] Internal Medicine Work Phone: 03-31-2013 11:15-0400 Body Temperature 97.5 [degF] Mirella Mccracken [facility] Internal Medicine Work Phone: Comment on above: Method: Oral 03-31-2013 11:15-0400 Body weight 74.02 kg Mirella Mccracken [facility] Internal Medicine Work Phone: 03-31-2013 11:15-0400 BP Diastolic 60 mm[Hg] Mirella Mccracken [facility] Internal Medicine Work Phone: Comment on above: Patient Position: Sitting; Cuff Location : Left Arm; Cuff Size: Large 03-31-2013 11:15-0400 BP Systolic 118 mm[Hg] Mirella Mccracken [facility] Internal Medicine Work Phone: Comment on above: Patient Position: Sitting; Cuff Location : Left Arm; Cuff Size: Large 03-31-2013 11:15-0400 BSA (Body Surface Area) 1.69 m2 Mirella Mccracken [facility] Internal Medicine Work Phone: 03-31-2013 11:15-0400 Height 149.86 cm Mirella Mccracken [facility] Internal Medicine Work Phone: 03-31-2013 11:15-0400 Pulse (Heart Rate) 60 /min Mirella Mccracken [facility] Internal Medicine Work Phone: Comment on above: Pattern: Regular 03-31-2013 11:15-0400 Respiratory Rate 20 /min Mirella Mccracken [facility] Internal Medicine Work Phone: Comment on above: Pattern: Unlabored 03-31-2013 11:15-0400 Weight 74.02 kg Mirella Mccracken [facility] Internal Medicine Work Phone: 02-28-2013 09:53-0400 BMI (Body Mass Index) 32.57 kg/m2 Mirella Mccracken [facility] Internal Medicine Work Phone: 02-28-2013 09:53-0400 Body Temperature 98.3 [degF] Mirella Mccracken [facility] Internal Medicine Work Phone: Comment on above: Method: Oral 02-28-2013 09:53-0400 Body weight 73.14 kg Mirella Mccracken [facility] Internal Medicine Work Phone: 02-28-2013 09:53-0400 BP Diastolic 62 mm[Hg] Mirella Mccracken [facility] Internal Medicine Work Phone: Comment on above: Patient Position: Sitting; Cuff Location : Left Arm; Cuff Size: Large 02-28-2013 09:53-0400 BP Systolic 120 mm[Hg] Mirella Mccracken [facility] Internal Medicine Work Phone: Comment on above: Patient Position: Sitting; Cuff Location : Left Arm; Cuff Size: Large 02-28-2013 09:53-0400 BSA (Body Surface Area) 1.68 m2 Mirella Mccracken [facility] Internal Medicine Work Phone: 02-28-2013 09:53-0400 Height 149.86 cm Mirella Mccracken [facility] Internal Medicine Work Phone: 02-28-2013 09:53-0400 Pulse (Heart Rate) 60 /min Mirella Mccracken [facility] Internal Medicine Work Phone: Comment on above: Pattern: Regular 02-28-2013 09:53-0400 Respiratory Rate 18 /min Mirella Mccracken [facility] Internal Medicine Work Phone: Comment on above: Pattern: Unlabored 02-28-2013 09:53-0400 Weight 73.14 kg Mirella Mccracken [facility] Internal Medicine Work Phone: 11-15-2012 14:01-0500 BMI (Body Mass Index) 32.57 kg/m2 Mirella Mccracken [facility] Internal Medicine Work Phone: 11-15-2012 14:01-0500 Body Temperature 97.9 [degF] Mirella Mccracken [facility] Internal Medicine Work Phone: Comment on above: Method: Oral 11-15-2012 14:01-0500 Body weight 73.14 kg Mirella Mccracken [facility] Internal Medicine Work Phone: 11-15-2012 14:01-0500 BP Diastolic 78 mm[Hg] [facility] Work [facility]: Comment on above: Patient Position: Sitting; Cuff Location : Left Arm; Cuff Size: Large 11-15-2012 14:01-0500 BP Systolic 122 mm[Hg] Mirella Mccracken [facility] Internal Medicine Work Phone: Comment on above: Patient Position: Sitting; Cuff Location : Left Arm; Cuff Size: Large 11-15-2012 14:01-0500 BSA (Body Surface Area) 1.68 m2 Mirella Mccracken [facility] Internal Medicine Work Phone: 11-15-2012 14:01-0500 Height 149.86 cm [facility] Work Phone: 11-15-2012 14:01-0500 Pulse (Heart Rate) 72 /min Mirella Mccracken [facility] Internal Medicine Work Phone: Comment on above: Pattern: Regular 11-15-2012 14:01-0500 Respiratory Rate 20 /min Mirella Mccracken [facility] Internal Medicine Work Phone: Comment on above: Pattern: Unlabored 11-15-2012 14:01-0500 Weight 73.14 kg Mirella Mccracken [facility] Internal Medicine Work Phone: 10-25-2012 11:26-0500 BMI (Body Mass Index) 32.74 kg/m2 Mirella Mccracken [facility] Internal Medicine Work Phone: 10-25-2012 11:26-0500 Body Temperature 98.3 [degF] Mirella Mccracken [facility] Internal Medicine Work Phone: Comment on above: Method: Oral 10-25-2012 11:26-0500 Body weight 73.54 kg Mirella Mccracken [facility] Internal Medicine Work Phone: 10-25-2012 11:26-0500 BP Diastolic 62 mm[Hg] Mirella Mccracken [facility] Internal Medicine Work Phone: Comment on above: Patient Position: Sitting; Cuff Location : Right Arm; Cuff Size: Large 10-25-2012 11:26-0500 BP Systolic 144 mm[Hg] Mirella Mccracken [facility] Internal Medicine Work Phone: Comment on above: Patient Position: Sitting; Cuff Location : Right Arm; Cuff Size: Large 10-25-2012 11:26-0500 BSA (Body Surface Area) 1.69 m2 Mirella Mccracken [facility] Internal Medicine Work Phone: 10-25-2012 11:26-0500 Height 149.86 cm Mirella Mccracken [facility] Internal Medicine Work Phone: 10-25-2012 11:26-0500 Pulse (Heart Rate) 72 /min Mirella Mccracken [facility] Internal Medicine Work Phone: Comment on above: Pattern: Regular 10-25-2012 11:26-0500 Respiratory Rate 20 /min Mirella Mccracken [facility] Internal Medicine Work Phone: Comment on above: Pattern: Unlabored 10-25-2012 11:26-0500 Weight 73.54 kg Mirella Mccracken [facility] Internal Medicine Work Phone: 10-21-2012 09:46-0500 BMI (Body Mass Index) 32.74 kg/m2 Mirella Mccracken [facility] Internal Medicine Work Phone: 10-21-2012 09:46-0500 Body Temperature 97.6 [degF] Mirella Mccracken [facility] Internal Medicine Work Phone: Comment on above: Method: Oral 10-21-2012 09:46-0500 Body weight 73.54 kg Mirella Mccracken [facility] Internal Medicine Work Phone: 10-21-2012 09:46-0500 BP Diastolic 62 mm[Hg] Mirella Mccracken [facility] Internal Medicine Work Phone: Comment on above: Patient Position: Sitting; Cuff Location : Left Arm; Cuff Size: Large 10-21-2012 09:46-0500 BP Systolic 120 mm[Hg] Mirella Mccracken [facility] Internal Medicine Work Phone: Comment on above: Patient Position: Sitting; Cuff Location : Left Arm; Cuff Size: Large 10-21-2012 09:46-0500 BSA (Body Surface Area) 1.69 m2 Mirella Mccracken [facility] Internal Medicine Work Phone: 10-21-2012 09:46-0500 Height 149.86 cm Mirella Mccracken [facility] Internal Medicine Work Phone: 10-21-2012 09:46-0500 Pulse (Heart Rate) 64 /min Mirella Mccracken [facility] Internal Medicine Work Phone: Comment on above: Pattern: Regular 10-21-2012 09:46-0500 Respiratory Rate 20 /min Mirella Mccracken [facility] Internal Medicine Work Phone: Comment on above: Pattern: Unlabored 10-21-2012 09:46-0500 Weight 73.54 kg Mirella Mccracken [facility] Internal Medicine Work Phone: 09-30-2012 09:48-0500 BMI (Body Mass Index) 32.74 kg/m2 Mirella Mccracken [facility] Internal Medicine Work Phone: 09-30-2012 09:48-0500 Body Temperature 98.2 [degF] Mirella Mccracken [facility] Internal Medicine Work Phone: Comment on above: Method: Oral 09-30-2012 09:48-0500 Body weight 73.54 kg Mirella Mccracken [facility] Internal Medicine Work Phone: 09-30-2012 09:48-0500 BP Diastolic 76 mm[Hg] Mirella Mccracken [facility] Internal Medicine Work Phone: Comment on above: Patient Position: Sitting; Cuff Location : Left Arm; Cuff Size: Standard 09-30-2012 09:48-0500 BP Systolic 122 mm[Hg] Mirella Mccracken [facility] Internal Medicine Work Phone: Comment on above: Patient Position: Sitting; Cuff Location : Left Arm; Cuff Size: Standard 09-30-2012 09:48-0500 BSA (Body Surface Area) 1.69 m2 Mirella Mccracken [facility] Internal Medicine Work Phone: 09-30-2012 09:48-0500 Height 149.86 cm Mirella Mccracken [facility] Internal Medicine Work Phone: 09-30-2012 09:48-0500 Pulse (Heart Rate) 58 /min Mirella Mccracken [facility] Internal Medicine Work Phone: Comment on above: Pattern: Regular 09-30-2012 09:48-0500 Pulse Oximetry 98 % Mirella Mccracken [facility] Internal Medicine Work Phone: Comment on above: Room air 09-30-2012 09:48-0500 Respiratory Rate 16 /min Mirella Mccracken [facility] Internal Medicine Work Phone: Comment on above: Pattern: Unlabored 09-30-2012 09:48-0500 Weight 73.54 kg Mirella Mccracken [facility] Internal Medicine Work Phone: 09-16-2012 09:47-0500 BMI (Body Mass Index) 32.74 kg/m2 Mirella [facility] Internal Medicine Work Phone: 09-16-2012 09:47-0500 Body Temperature 97 [degF] Mirella Mccracken [facility] Internal Medicine Work Phone: Comment on above: Method: Oral 09-16-2012 09:47-0500 Body weight 73.54 kg Mirella Mccracken [facility] Internal Medicine Work Phone: 09-16-2012 09:47-0500 BP Diastolic 76 mm[Hg] Mirella Mccracken [facility] Internal Medicine Work Phone: Comment on above: Patient Position: Sitting; Cuff Location : Left Arm; Cuff Size: Large 09-16-2012 09:47-0500 BP Systolic 128 mm[Hg] Mirella Mccracken [facility] Internal Medicine Work Phone: Comment on above: Patient Position: Sitting; Cuff Location : Left Arm; Cuff Size: Large 09-16-2012 09:47-0500 BSA (Body Surface Area) 1.69 m2 Mirella Mccracken [facility] Internal Medicine Work Phone: 09-16-2012 09:47-0500 Height 149.86 cm Mirella Mccracken [facility] Internal Medicine Work Phone: 09-16-2012 09:47-0500 Pulse (Heart Rate) 72 /min Mirella Mccracken [facility] Internal Medicine Work Phone: Comment on above: Pattern: Regular 09-16-2012 09:47-0500 Respiratory Rate 18 /min Mirella Mccracken [facility] Internal Medicine Work Phone: Comment on above: Pattern: Unlabored 09-16-2012 09:47-0500 Weight 73.54 kg Mirella Mccracken [facility] Internal Medicine Work Phone: 05-27-2012 09:32-0400 Body Temperature 96.9 [degF] Hung [facility] Work Phone: 03-11-2012 13:42-0400 BMI (Body Mass Index) 28.88 kg/m2 Mirella [facility] Internal Medicine Work Phone: 03-11-2012 13:42-0400 Body Temperature 97.8 [degF] Mirella Mccracken [facility] Internal Medicine Work Phone: 03-11-2012 13:42-0400 Body weight 64.86 kg Mirella Mccracken [facility] Internal Medicine Work Phone: 03-11-2012 13:42-0400 BP Diastolic 70 mm[Hg] Mirella Mccracken [facility] Internal Medicine Work Phone: Comment on above: Patient Position: Sitting; Cuff Location : Left Arm; Cuff Size: Large 03-11-2012 13:42-0400 BP Systolic 124 mm[Hg] Mirella Mccracken [facility] Internal Medicine Work Phone: Comment on above: Patient Position: Sitting; Cuff Location : Left Arm; Cuff Size: Large 03-11-2012 13:42-0400 BSA (Body Surface Area) 1.6 m2 Mirella Mccracken [facility] Internal Medicine Work Phone: 03-11-2012 13:42-0400 Height 149.86 cm Mirella Mccracken [facility] Internal Medicine Work Phone: 03-11-2012 13:42-0400 Pulse (Heart Rate) 56 /min Mirella Mccracken [facility] Internal Medicine Work Phone: Comment on above: Pattern: Regular 03-11-2012 13:42-0400 Respiratory Rate 18 /min Mirella Mccracken [facility] Internal Medicine Work Phone: Comment on above: Pattern: Unlabored 03-11-2012 13:42-0400 Weight 64.86 kg Mirella Mccracken [facility] Internal Medicine Work Phone: 03-04-2012 12:12-0400 BMI (Body Mass Index) 28.96 kg/m2 Mirella Mccracken [facility] Internal Medicine Work Phone: 03-04-2012 12:12-0400 Body weight 65.03 kg Mirella Mccracken [facility] Internal Medicine Work Phone: 03-04-2012 12:12-0400 BP Diastolic 62 mm[Hg] Mirella Mccracken [facility] Internal Medicine Work Phone: Comment on above: Patient Position: Sitting; Cuff Location : Left Arm; Cuff Size: Large 03-04-2012 12:12-0400 BP Systolic 122 mm[Hg] Mirella Mccracken [facility] Internal Medicine Work Phone: Comment on above: Patient Position: Sitting; Cuff Location : Left Arm; Cuff Size: Large 03-04-2012 12:12-0400 BSA (Body Surface Area) 1.6 m2 Mirella Mccracken [facility] Internal Medicine Work Phone: 03-04-2012 12:12-0400 Height 149.86 cm Mirella Mccracken [facility] Internal Medicine Work Phone: 03-04-2012 12:12-0400 Pulse (Heart Rate) 60 /min Mirella Mccracken [facility] Internal Medicine Work Phone: Comment on above: Pattern: Regular 03-04-2012 12:12-0400 Respiratory Rate 20 /min Mirella Mccracken [facility] Internal Medicine Work Phone: Comment on above: Pattern: Unlabored 03-04-2012 12:12-0400 Weight 65.03 kg iMrella Mccracken [facility] Internal Medicine Work Phone: 02-25-2012 13:29-0400 BMI (Body Mass Index) 28.96 kg/m2 Mirella Mccracken [facility] Internal Medicine Work Phone: 02-25-2012 13:29-0400 Body weight 65.03 kg Mirella Mccracken [facility] Internal Medicine Work Phone: 02-25-2012 13:29-0400 BP Diastolic 76 mm[Hg] Mirella Mccracken [facility] Internal Medicine Work Phone: Comment on above: Patient Position: Sitting; Cuff Location : Left Arm; Cuff Size: Standard 02-25-2012 13:29-0400 BP Systolic 120 mm[Hg] Mirella Mccracken [facility] Internal Medicine Work Phone: Comment on above: Patient Position: Sitting; Cuff Location : Left Arm; Cuff Size: Standard 02-25-2012 13:29-0400 BSA (Body Surface Area) 1.6 m2 Mirella Mccracken [facility] Internal Medicine Work Phone: 02-25-2012 13:29-0400 Height 149.86 cm Mirella Mccracken [facility] Internal Medicine Work Phone: 02-25-2012 13:29-0400 Pulse (Heart Rate) 68 /min Mirella Mccracken [facility] Internal Medicine Work Phone: Comment on above: Pattern: Regular 02-25-2012 13:29-0400 Respiratory Rate 20 /min Mirella Mccracken [facility] Internal Medicine Work Phone: Comment on above: Pattern: Unlabored 02-25-2012 13:29-0400 Weight 65.03 kg Mirella Mccracken [facility] Internal Medicine Work Phone: 01-30-2012 08:19-0400 BMI (Body Mass Index) 28.96 kg/m2 Mirella Mccracken [facility] Internal Medicine Work Phone: 01-30-2012 08:19-0400 Body weight 65.03 kg Mirella Mccracken [facility] Internal Medicine Work Phone: 01-30-2012 08:19-0400 BP Diastolic 70 mm[Hg] Mirella Mccracken [facility] Internal Medicine Work Phone: Comment on above: Patient Position: Sitting; Cuff Location : Left Arm; Cuff Size: Large 01-30-2012 08:19-0400 BP Systolic 120 mm[Hg] Mirella Mccracken [facility] Internal Medicine Work Phone: Comment on above: Patient Position: Sitting; Cuff Location : Left Arm; Cuff Size: Large 01-30-2012 08:19-0400 BSA (Body Surface Area) 1.6 m2 Mirella Mccracken [facility] Internal Medicine Work Phone: 01-30-2012 08:190400 Height 149.86 cm Mirella Mccracken [facility] Internal Medicine Work Phone: 01-30-2012 08:19-0400 Pulse (Heart Rate) 60 /min Mirella Mccracken [facility] Internal Medicine Work Phone: Comment on above: Pattern: Regular 01-30-2012 08:19-0400 Respiratory Rate 18 /min Mirella [facility] Internal Medicine Work Phone: Comment on above: Pattern: Unlabored 01-30-2012 08:19-0400 [facility] 65.03 [facility]: 01-15-2012 12:06-0400 BMI (Body Mass Index) 28.96 kg/m2 Mirella Mccracken [facility] Internal Medicine Work Phone: Comment on above: vison with correction ou=20/50 os=20/50 od=20/50hearing [facility] 01-15-2012 12:06-0400 Body Temperature 97 [degF] Mirella [facility] Internal Medicine Work Phone: Comment on above: Method: Oral vison with correctio n ou=20/50 os=20/50 od=20/50hearing [facility] 01-15-2012 12:06-0400 Body weight 65.03 kg Mirella [facility] Internal Medicine Work Phone: Comment on above: vison with correction ou=20/50 os=20/50 od=20/50hearing [facility] 01-15-2012 12:06-0400 BP Diastolic 60 mm[Hg] [facility] Medicine Work Phone: Comment on above: Patient Position: Sitting; Cuff Location : Left Arm; Cuff Size: Large vison with correctio n ou=20/50 os=20/50 od=20/50hearing [facility] 01-15-2012 12:06-0400 BP Systolic 118 mm[Hg] [facility] Internal Medicine Work Phone: Comment on above: Patient Position: Sitting; Cuff Location : Left Arm; Cuff Size: Large vison with correctio n ou=20/50 os=20/50 od=20/50hearing [facility] 01-15-2012 12:06-0400 BSA (Body Surface Area) 1.6 m2 [facility] Medicine Work Phone: Comment on above: vison with correction ou=20/50 os=20/50 od=20/50hearing [facility] 01-15-2012 12:06-0400 Height 149.86 cm Mirella Mccracken [facility] Internal Medicine Work Phone: Comment on above: vison with correction ou=20/50 os=20/50 od=20/50hearing [facility] 01-15-2012 12:06-0400 Pulse (Heart Rate) 68 /min Mirella Mccracken [facility] Internal Medicine Work Phone: Comment on above: Pattern: Regular vison with correctio n ou=20/50 os=20/50 od=20/50hearing [facility] 01-15-2012 12:06-0400 Respiratory Rate 20 /[facility] Work Phone: Comment on above: Pattern: Unlabored vison with correctio n ou=20/50 os=20/50 od=20/50hearing [facility] 01-15-2012 12:06-0400 Weight 65.03 kg Mirella [facility]: Comment on above: vison with correction ou=20/50 os=20/50 od=20/50hearing [facility] 12-31-2011 15:05-0400 BMI (Body Mass Index) 28.88 kg/m2 Mirella Mccracken [facility] Internal Medicine Work Phone: 12-31-2011 15:05-0400 Body weight 64.86 kg Mierlla Mccracken [facility] Internal Medicine Work Phone: 12-31-2011 15:05-0400 BP Diastolic 78 mm[Hg] [facility] Work [facility]: Comment on above: Patient Position: Sitting; Cuff Location : Left Arm; Cuff Size: Large 12-31-2011 15:05-0400 BP Systolic 122 mm[Hg] [facility] Work [facility]: Comment on above: Patient Position: Sitting; Cuff Location : Left Arm; Cuff Size: Large 12-31-2011 15:05-0400 BSA (Body Surface Area) 1.6 m2 [facility] Work Phone: 12-31-2011 15:05-0400 Height 149.86 cm Mirella Mccracken [facility] Internal Medicine Work Phone: 12-31-2011 15:05-0400 Pulse (Heart Rate) 60 /min Mirella Mccracken [facility] Internal Medicine Work Phone: Comment on above: Pattern: Regular 12-31-2011 15:05-0400 Respiratory Rate 18 /min Mirella Mccracken [facility] Internal Medicine Work Phone: Comment on above: Pattern: Unlabored 12-31-2011 15:05-0400 Weight 64.86 kg Mirella Mccracken [facility] Internal Medicine Work Phone: 12-26-2011 14:17-0400 BP Diastolic 62 mm[Hg] Mirella Mccracken [facility] Internal Medicine Work Phone: Comment on above: Patient Position: Sitting; Cuff Location : Left Arm; Cuff Size: Standard 12-26-2011 14:17-0400 BP Systolic 122 mm[Hg] Mirella Mccracken [facility] Internal Medicine Work Phone: Comment on above: Patient Position: Sitting; Cuff Location : Left Arm; Cuff Size: Standard 12-26-2011 14:17-0400 Pulse (Heart Rate) 58 /min Mirella Mccracken [facility] Internal Medicine Work Phone: Comment on above: Pattern: Regular 12-26-2011 14:17-0400 Pulse Oximetry 98 % Mirella Mccracken [facility] Internal Medicine Work Phone: Comment on above: Room air 12-26-2011 13:59-0400 Pulse (Heart Rate) 48 /min Mirella Mccracken [facility] Internal Medicine Work Phone: Comment on above: Pattern: Regular 12-26-2011 13:59-0400 Pulse Oximetry 95 % Mirella Mccracken [facility] Internal Medicine Work Phone: Comment on above: Room air 12-26-2011 13:13-0400 BMI (Body Mass Index) 29.49 kg/m2 Mirella Mccracken [facility] Internal Medicine Work Phone: 12-26-2011 13:13-0400 Body Temperature 97.8 [degF] Mirella Mccracken [facility] Internal Medicine Work Phone: Comment on above: Method: Oral 12-26-2011 13:130400 Body weight 66.23 kg Mirella Mccracken [facility] Internal Medicine Work Phone: 12-26-2011 13:13-0400 BP Diastolic 68 mm[Hg] Mirella Mccracken [facility] Internal Medicine Work Phone: Comment on above: Patient Position: Sitting; Cuff Location : Left Arm; Cuff Size: Standard 12-26-2011 13:13-0400 BP Systolic 114 mm[Hg] Mirella Mccracken [facility] Internal Medicine Work Phone: Comment on above: Patient Position: Sitting; Cuff Location : Left Arm; Cuff Size: Standard 12-26-2011 13:13-0400 BSA (Body Surface Area) 1.61 m2 Mirella Mccracken [facility] Internal Medicine Work Phone: 12-26-2011 13:13-0400 Height 149.86 cm Mirella Mccracken [facility] Internal Medicine Work Phone: 12-26-2011 13:13-0400 Pulse (Heart Rate) 54 /min Mirella Mccracken [facility] Internal Medicine Work Phone: Comment on above: Pattern: Regular 12-26-2011 13:13-0400 Pulse Oximetry 98 % Mirella Mccracken [facility] Internal Medicine Work Phone: Comment on above: Room air 12-26-2011 13:13-0400 Respiratory Rate 20 /min Mirella Mccracken [facility] Internal Medicine Work Phone: Comment on above: Pattern: Unlabored 12-26-2011 13:13-0400 Weight 66.23 kg Mirella Mccracken [facility] Internal Medicine Work Phone: 12-24-2011 14:07-0400 BMI (Body Mass Index) 29.5 kg/m2 Mirella Mccracken [facility] Internal Medicine Work Phone: 12-24-2011 14:07-0400 Body weight 66.25 kg Mirella Mccracken [facility] Internal Medicine Work Phone: 12-24-2011 14:07-0400 BP Diastolic 60 mm[Hg] Mirella Mccracken [facility] Internal Medicine Work Phone: Comment on above: Patient Position: Sitting; Cuff Location : Left Arm; Cuff Size: Large 12-24-2011 14:07-0400 BP Systolic 124 mm[Hg] Mirella Mccracken [facility] Internal Medicine Work Phone: Comment on above: Patient Position: Sitting; Cuff Location : Left Arm; Cuff Size: Large 12-24-2011 14:07-0400 BSA (Body Surface Area) 1.61 m2 Mirella Mccracken [facility] Internal Medicine Work Phone: 12-24-2011 14:07-0400 Height 149.86 cm Mirella Mccracken [facility] Internal Medicine Work Phone: 12-24-2011 14:07-0400 Pulse (Heart Rate) 60 /min Mirella Mccracken [facility] Internal Medicine Work Phone: Comment on above: Pattern: Regular 12-24-2011 14:07-0400 Respiratory Rate 18 /min Mirella Mccracken [facility] Internal Medicine Work Phone: Comment on above: Pattern: Unlabored 12-24-2011 14:07-0400 Weight 66.25 kg Mirella Mccracken [facility] Internal Medicine Work Phone: 12-15-2011 09:30-0400 BMI (Body Mass Index) 29.31 kg/m2 Mirella Mccracken [facility] Internal Medicine Work Phone: 12-15-2011 09:30-0400 Body Temperature 97.9 [degF] Mirella Mccracken [facility] Internal Medicine Work Phone: Comment on above: Method: Oral 12-15-2011 09:30-0400 Body weight 65.83 kg Mirella Mccracken [facility] Internal Medicine Work Phone: 12-15-2011 09:30-0400 BP Diastolic 60 mm[Hg] Mirella Mccracken [facility] Internal Medicine Work Phone: Comment on above: Patient Position: Sitting; Cuff Location : Left Arm; Cuff Size: Large 12-15-2011 09:30-0400 BP Systolic 104 mm[Hg] Mirella Mccracken [facility] Internal Medicine Work Phone: Comment on above: Patient Position: Sitting; Cuff Location : Left Arm; Cuff Size: Large 12-15-2011 09:30-0400 BSA (Body Surface Area) 1.61 m2 Mirella Mccracken [facility] Internal Medicine Work Phone: 12-15-2011 09:30-0400 Height 149.86 cm Mirella Mccracken [facility] Internal Medicine Work Phone: 12-15-2011 09:30-0400 Pulse (Heart Rate) 60 /min Mirella Mccracken [facility] Internal Medicine Work Phone: Comment on above: Pattern: Regular 12-15-2011 09:30-0400 Respiratory Rate 18 /min Mirella Mccracken [facility] Internal Medicine Work Phone: Comment on above: Pattern: Unlabored 12-15-2011 09:30-0400 Weight 65.83 kg Mirella Mccracken [facility] Internal Medicine Work Phone: 11-26-2011 11:36-0400 BMI (Body Mass Index) 29.69 kg/m2 Mirella Mccracken [facility] Internal Medicine Work Phone: 11-26-2011 11:36-0400 Body Temperature 95.6 [degF] Mirella Mccracken [facility] Internal Medicine Work Phone: Comment on above: Method: Oral 11-26-2011 11:36-0400 Body weight 66.68 kg Mirella Mccracken [facility] Internal Medicine Work Phone: 11-26-2011 11:36-0400 BP Diastolic 62 mm[Hg] Mirella Mccracken [facility] Internal Medicine Work Phone: Comment on above: Patient Position: Sitting; Cuff Location : Left Arm; Cuff Size: Large 11-26-2011 11:36-0400 BP Systolic 118 mm[Hg] Mirella Mccracken [facility] Internal Medicine Work Phone: Comment on above: Patient Position: Sitting; Cuff Location : Left Arm; Cuff Size: Large 11-26-2011 11:36-0400 BSA (Body Surface Area) 1.62 m2 Mirella Mccracken [facility] Internal Medicine Work Phone: 11-26-2011 11:36-0400 Height 149.86 cm Mirella Mccracken [facility] Internal Medicine Work Phone: 11-26-2011 11:36-0400 Pulse (Heart Rate) 64 /min Mirella Mccracken [facility] Internal Medicine Work Phone: Comment on above: Pattern: Regular 11-26-2011 11:36-0400 Respiratory Rate 20 /min Mirella Mccracken [facility] Internal Medicine Work Phone: Comment on above: Pattern: Unlabored 11-26-2011 11:36-0400 Weight 66.68 kg Mirella Mccracken [facility] Internal Medicine Work Phone: 11-12-2011 12:55-0500 BMI (Body Mass Index) 30.51 kg/m2 Mirella Mccracken [facility] Internal Medicine Work Phone: 11-12-2011 12:55-0500 Body weight 68.52 kg Mirella Mccracken [facility] Internal Medicine Work Phone: 11-12-2011 12:55-0500 BP Diastolic 60 mm[Hg] Mirella Mccracken [facility] Internal Medicine Work Phone: Comment on above: Patient Position: Sitting; Cuff Location : Left Arm; Cuff Size: Large 11-12-2011 12:55-0500 BP Systolic 112 mm[Hg] Mirella Mccracken [facility] Internal Medicine Work Phone: Comment on above: Patient Position: Sitting; Cuff Location : Left Arm; Cuff Size: Large 11-12-2011 12:55-0500 BSA (Body Surface Area) 1.64 m2 Mirella Mccracken [facility] Internal Medicine Work Phone: 11-12-2011 12:55-0500 Height 149.86 cm Mirella Mccracken [facility] Internal Medicine Work Phone: 11-12-2011 12:55-0500 Pulse (Heart Rate) 68 /min Mirella Mccracken [facility] Internal Medicine Work Phone: Comment on above: Pattern: Regular 11-12-2011 12:55-0500 Respiratory Rate 20 /min Mirella Mccracken [facility] Internal Medicine Work Phone: Comment on above: Pattern: Unlabored 11-12-2011 12:55-0500 Weight 68.52 kg Mirella Mccracken [facility] Internal Medicine Work Phone: 11-06-2011 12:18-0500 BMI (Body Mass Index) 30.09 kg/m2 Mirella Mccracken [facility] Internal Medicine Work Phone: 11-06-2011 12:18-0500 Body Temperature 98.1 [degF] Mirella Mccracken [facility] Internal Medicine Work Phone: Comment on above: Method: Oral 11-06-2011 12:18-0500 Body weight 67.59 kg Mirella Mccracken [facility] Internal Medicine Work Phone: 11-06-2011 12:18-0500 BP Diastolic 70 mm[Hg] Mirella Mccracken [facility] Internal Medicine Work Phone: Comment on above: Patient Position: Sitting; Cuff Location : Left Arm; Cuff Size: Large 11-06-2011 12:18-0500 BP Systolic 134 mm[Hg] Mirella Mccracken [facility] Internal Medicine Work Phone: Comment on above: Patient Position: Sitting; Cuff Location : Left Arm; Cuff Size: Large 11-06-2011 12:18-0500 BSA (Body Surface Area) 1.63 m2 Mirella Mccracken [facility] Internal Medicine Work Phone: 11-06-2011 12:18-0500 Height 149.86 cm Mirella Mccracken [facility] Internal Medicine Work Phone: 11-06-2011 12:18-0500 Pulse (Heart Rate) 68 /min Mirella Mccracken [facility] Internal Medicine Work Phone: Comment on above: Pattern: Regular 11-06-2011 12:18-0500 Respiratory Rate 20 /min Mirella Mccracken [facility] Internal Medicine Work Phone: Comment on above: Pattern: Unlabored 11-06-2011 12:18-0500 Weight 67.59 kg Mirella Mccracken [facility] Internal Medicine Work Phone: 10-21-2011 13:27-0500 Body Temperature 97.9 [degF] Mirella Mccracken [facility] Internal Medicine Work Phone: 10-21-2011 13:27-0500 Body weight 67.54 kg Mirella Mccracken [facility] Internal Medicine Work Phone: 10-21-2011 13:27-0500 BP Diastolic 92 mm[Hg] Mirella Mccracken [facility] Internal Medicine Work Phone: Comment on above: Patient Position: Sitting; Cuff Location : Left Arm; Cuff Size: Standard 10-21-2011 13:27-0500 BP Systolic 152 mm[Hg] Mirella Mccracken [facility] Internal Medicine Work Phone: Comment on above: Patient Position: Sitting; Cuff Location : Left Arm; Cuff Size: Standard 10-21-2011 13:27-0500 Pulse (Heart Rate) 99 /min Mirella Mccracken [facility] Internal Medicine Work Phone: Comment on above: Pattern: Regular 10-21-2011 13:27-0500 Pulse Oximetry 92 % Mirella Mccracken [facility] Internal Medicine Work Phone: Comment on above: Room air 10-21-2011 13:27-0500 Respiratory Rate 17 /min Mirella Mccracken [facility] Internal Medicine Work Phone: Comment on above: Pattern: Unlabored 10-21-2011 13:27-0500 Weight 67.54 kg Mirella Mccracken [facility] Internal Medicine Work Phone: 06-05-2011 09:34-0400 BMI (Body Mass Index) 30.14 kg/m2 Mirella Mccracken [facility] Internal Medicine Work Phone: 06-05-2011 09:34-0400 Body Temperature 98.5 [degF] Mirella Mccracken [facility] Internal Medicine Work Phone: Comment on above: Method: Oral 06-05-2011 09:34-0400 Body weight 67.7 kg Mirella Mccracken [facility] Internal Medicine Work Phone: 06-05-2011 09:34-0400 BP Diastolic 78 mm[Hg] Mirella Mccracken [facility] Internal Medicine Work Phone: Comment on above: Patient Position: Sitting; Cuff Location : Left Arm; Cuff Size: Large 06-05-2011 09:34-0400 BP Systolic 142 mm[Hg] Mirella Mccracken [facility] Internal Medicine Work Phone: Comment on above: Patient Position: Sitting; Cuff Location : Left Arm; Cuff Size: Large 06-05-2011 09:34-0400 BSA (Body Surface Area) 1.63 m2 Mirella Mccracken [facility] Internal Medicine Work Phone: 06-05-2011 09:34-0400 Height 149.86 cm Mirella Mccracken [facility] Internal Medicine Work Phone: 06-05-2011 09:34-0400 Pulse (Heart Rate) 76 /min Mirella Mccracken [facility] Internal Medicine Work Phone: Comment on above: Pattern: Regular 06-05-2011 09:34-0400 Respiratory Rate 20 /min Mirella Mccracken [facility] Internal Medicine Work Phone: Comment on above: Pattern: Unlabored 06-05-2011 09:34-0400 Weight 67.7 kg Mirella Mccracken [facility] Internal Medicine Work Phone: 05-08-2011 08:10-0400 BMI (Body Mass Index) 28.19 kg/m2 Mirella Mccracken [facility] Internal Medicine Work Phone: 05-08-2011 08:10-0400 Body Temperature 98.7 [degF] Mirella Mccracken [facility] Internal Medicine Work Phone: Comment on above: Method: Oral 05-08-2011 08:10-0400 Body weight 63.31 kg Mirella Mccracken [facility] Internal Medicine Work Phone: 05-08-2011 08:10-0400 BP Diastolic 78 mm[Hg] Mirella Mccracken [facility] Internal Medicine Work Phone: Comment on above: Patient Position: Sitting; Cuff Location : Left Arm; Cuff Size: Standard 05-08-2011 08:10-0400 BP Systolic 142 mm[Hg] Mirella Mccracken [facility] Internal Medicine Work Phone: Comment on above: Patient Position: Sitting; Cuff Location : Left Arm; Cuff Size: Standard 05-08-2011 08:10-0400 BSA (Body Surface Area) 1.58 m2 Mirella Mccracken [facility] Internal Medicine Work Phone: 05-08-2011 08:10-0400 Height 149.86 cm Mirella Mccracken [facility] Internal Medicine Work Phone: 05-08-2011 08:10-0400 Pulse (Heart Rate) 84 /min Mirella Mccracken [facility] Internal Medicine Work Phone: Comment on above: Pattern: Regular 05-08-2011 08:10-0400 Respiratory Rate 17 /min Mirella Mccracken [facility] Internal Medicine Work Phone: 05-08-2011 08:10-0400 Weight 63.31 kg Mirella Mccracken [facility] Internal Medicine Work Phone: 05-07-2011 08:42-0400 BMI (Body Mass Index) 28.19 kg/m2 Mirella Mccracken [facility] Internal Medicine Work Phone: 05-07-2011 08:42-0400 Body Temperature 98 [degF] Mirella Mccracken [facility] Internal Medicine Work Phone: Comment on above: Method: Oral 05-07-2011 08:42-0400 Body weight 63.31 kg Mirella Mccracken [facility] Internal Medicine Work Phone: 05-07-2011 08:42-0400 BP Diastolic 72 mm[Hg] Mirella Mccracken [facility] Internal Medicine Work Phone: Comment on above: Patient Position: Sitting; Cuff Location : Left Arm; Cuff Size: Standard 05-07-2011 08:42-0400 BP Systolic 132 mm[Hg] Mirella Mccracken [facility] Internal Medicine Work Phone: Comment on above: Patient Position: Sitting; Cuff Location : Left Arm; Cuff Size: Standard 05-07-2011 08:42-0400 BSA (Body Surface Area) 1.58 m2 Mirella Mccracken [facility] Internal Medicine Work Phone: 05-07-2011 08:42-0400 Height 149.86 cm Mirella Mccracken [facility] Internal Medicine Work Phone: 05-07-2011 08:42-0400 Pulse (Heart Rate) 82 /min Mirella Mccracken [facility] Internal Medicine Work Phone: Comment on above: Pattern: Regular 05-07-2011 08:42-0400 Respiratory Rate 18 /min Mirella Mccracken [facility] Internal Medicine Work Phone: Comment on above: Pattern: Unlabored 05-07-2011 08:42-0400 Weight 63.31 kg Mirella Mccracken [facility] Internal Medicine Work Phone: 05-06-2011 16:25-0400 BP Diastolic 82 mm[Hg] Mirella Mccracken [facility] Internal Medicine Work Phone: Comment on above: Patient Position: Supine; Cuff Location: Right Arm; Cuff Size: Standard 05-06-2011 16:25-0400 BP Systolic 146 mm[Hg] Mirella Mccracken [facility] Internal Medicine Work Phone: Comment on above: Patient Position: Supine; Cuff Location: Right Arm; Cuff Size: Standard 05-06-2011 16:25-0400 Pulse (Heart Rate) 76 /min Mirella Mccracken [facility] Internal Medicine Work Phone: Comment on above: Pattern: Regular 11-06-2010 12:10-0500 BMI (Body Mass Index) 28.19 kg/m2 Mirella Mccracken [facility] Internal Medicine Work Phone: 11-06-2010 12:10-0500 Body Temperature 97.3 [degF] Mirella Mccracken [facility] Internal Medicine Work Phone: Comment on above: Method: Oral 11-06-2010 12:10-0500 Body weight 63.31 kg Mirella Mccracken [facility] Internal Medicine Work Phone: 11-06-2010 12:10-0500 BP Diastolic 82 mm[Hg] Mirella Mccracken [facility] Internal Medicine Work Phone: Comment on above: Patient Position: Sitting; Cuff Location : Left Arm; Cuff Size: Standard 11-06-2010 12:10-0500 BP Systolic 144 mm[Hg] Mirella Mccracken [facility] Internal Medicine Work Phone: Comment on above: Patient Position: Sitting; Cuff Location : Left Arm; Cuff Size: Standard 11-06-2010 12:10-0500 BSA (Body Surface Area) 1.58 m2 Mirella Mccracken [facility] Internal Medicine Work Phone: 11-06-2010 12:10-0500 Height 149.86 cm [facility] Work Phone: 11-06-2010 12:10-0500 Pulse (Heart Rate) 76 /min Mirella Mccracken [facility] Internal Medicine Work Phone: Comment on above: Pattern: Regular 11-06-2010 12:10-0500 Respiratory Rate 18 /min Mirella Mccracken [facility] Internal Medicine Work Phone: Comment on above: Pattern: Unlabored 11-06-2010 12:10-0500 Weight 63.31 kg Mirella Mccracken [facility] Internal Medicine Work Phone: 11-04-2010 09:00-0500 BMI (Body Mass Index) 28.19 kg/m2 Mirella Mccracken [facility] Internal Medicine Work Phone: 11-04-2010 09:00-0500 Body weight 63.31 kg Mirella Mccracken [facility] Internal Medicine Work Phone: 11-04-2010 09:00-0500 BP Diastolic 72 mm[Hg] Mirella Mccracken [facility] Internal Medicine Work Phone: Comment on above: Patient Position: Sitting; Cuff Location : Left Arm; Cuff Size: Standard 11-04-2010 09:00-0500 BP Systolic 122 mm[Hg] Mirella Mccracken [facility] Internal Medicine Work Phone: Comment on above: Patient Position: Sitting; Cuff Location : Left Arm; Cuff Size: Standard 11-04-2010 09:00-0500 BSA (Body Surface Area) 1.58 m2 Mirella Mccracken [facility] Internal Medicine Work Phone: 11-04-2010 09:00-0500 Height 149.86 [facility] Work [facility]: 11-04-2010 09:00-0500 Pulse (Heart Rate) 62 /min Mirella Mccracken [facility] Internal Medicine Work Phone: Comment on above: Pattern: Regular 11-04-2010 09:00-0500 Respiratory Rate 16 /min Mirella Mccracken [facility] Internal Medicine Work Phone: Comment on above: Pattern: Unlabored 11-04-2010 09:00-0500 Weight 63.31 kg Mirella Mccracken [facility] Internal Medicine Work Phone: 10-14-2010 09:31-0500 BMI (Body Mass Index) 28.19 kg/m2 Mirella Mccracken [facility] Internal Medicine Work Phone: 10-14-2010 09:31-0500 Body weight 63.31 kg Mirella Mccracken [facility] Internal Medicine Work Phone: 10-14-2010 09:31-0500 BP Diastolic 70 mm[Hg] Mirella Mccracken [facility] Internal Medicine Work Phone: Comment on above: Patient Position: Sitting; Cuff Location : Left Arm; Cuff Size: Large 10-14-2010 09:31-0500 BP Systolic 132 mm[Hg] Mirella Mccracken [facility] Internal Medicine Work Phone: Comment on above: Patient Position: Sitting; Cuff Location : Left Arm; Cuff Size: Large 10-14-2010 09:31-0500 BSA (Body Surface Area) 1.58 m2 Mirella Mccracken [facility] Internal Medicine Work Phone: 10-14-2010 09:31-0500 Height 149.86 cm Mirella Mccracken [facility] Internal Medicine Work Phone: 10-14-2010 09:31-0500 Pulse (Heart Rate) 72 /min Mirella Mccracken [facility] Internal Medicine Work Phone: Comment on above: Pattern: Regular 10-14-2010 09:31-0500 Respiratory Rate 20 /min Mirella Mccracken [facility] Internal Medicine Work Phone: Comment on above: Pattern: Unlabored 10-14-2010 09:31-0500 Weight 63.31 kg Mirella Mccracken [facility] Internal Medicine Work Phone: 07-17-2010 08:52-0400 BMI (Body Mass Index) 29.73 kg/m2 Mirella [facility] Internal [facility] Work Phone: 07-17-2010 08:52-0400 Body weight 66.76 kg Mirella Mccracken [facility] Internal Medicine Work Phone: 07-17-2010 08:52-0400 BP Diastolic 78 mm[Hg] Mirella Mccracken [facility] Internal Medicine Work Phone: Comment on above: Patient Position: Sitting; Cuff Location : Left Arm; Cuff Size: Large 07-17-2010 08:52-0400 BP Systolic 138 mm[Hg] Mirella Mccracken [facility] Internal Medicine Work Phone: Comment on above: Patient Position: Sitting; Cuff Location : Left Arm; Cuff Size: Large 07-17-2010 08:52-0400 BSA (Body Surface Area) 1.62 m2 Mirella Mccracken [facility] Internal Medicine Work Phone: 07-17-2010 08:52-0400 Height 149.86 cm Mirella Mccracken [facility] Internal Medicine Work Phone: 07-17-2010 08:52-0400 Pulse (Heart Rate) 60 /min Mirella Mccracken [facility] Internal Medicine Work Phone: Comment on above: Pattern: Regular 07-17-2010 08:52-0400 Respiratory Rate 20 /min Mirella Mccracken [facility] Internal Medicine Work Phone: Comment on above: Pattern: Unlabored 07-17-2010 08:52-0400 Weight 66.76 kg Mirella Mccracken [facility] Internal Medicine Work Phone: 06-17-2010 10:04-0400 BMI (Body Mass Index) 29.6 kg/m2 Mirella Solano [facility] Internal Medicine Work Phone: 06-17-2010 10:04-0400 Body weight 66.48 kg Mirella Mccracken [facility] Internal Medicine Work Phone: 06-17-2010 10:04-0400 [...] BSA (Body Surface Area) 1.62 m2 Mirella Mccrackne [facility] Internal Medicine Work Phone: 06-17-2010 10:04-0400 Height 149.86 cm Mirella Mccracken [facility] Internal Medicine Work Phone: 06-17-2010 10:04-0400 Pulse (Heart Rate) 68 /min Mirella Mccracken [facility] Internal Medicine Work Phone: Comment on above: Pattern: Regular 06-17-2010 10:04-0400 Respiratory Rate 20 /min Mirella Mccracken [facility] Internal Medicine Work Phone: Comment on above: Pattern: Unlabored 06-17-2010 10:04-0400 Weight 66.48 kg Mirella Mccracken [facility] Internal Medicine Work Phone: 01-25-2010 13:25-0400 Body weight 66.91 kg Mirella Mccracken [facility] Internal Medicine Work Phone: 01-25-2010 13:25-0400 BP Diastolic 76 mm[Hg] Mirella Mccracken [facility] Internal Medicine Work Phone: [...] 13:25-0400 Respiratory Rate 18 /min [facility] [facility] Work Phone: Comment on above: Pattern: Unlabored 01-25-2010 13:25-0400 Weight 66.91 kg Mirella Mccracken [facility] Internal Medicine Work Phone: 12-13-2009 11:12-0400 BMI (Body Mass Index) 29.32 kg/m2 Mirella Mccracken [facility] Internal Medicine Work Phone: 12-13-2009 11:12-0400 Body weight 65.86 kg Mirella Mccracken [facility] Internal Medicine Work Phone: 12-13-2009 11:12-0400 BP Diastolic 78 mm[Hg] Mirella Mccracken [facility] Internal Medicine Work Phone: Comment on above: Patient Position: Sitting; Cuff Location : Left Arm; Cuff Size: Large 12-13-2009 11:12-0400 BP Systolic 118 mm[Hg] Mirella Mccracken [facility] Internal Medicine Work Phone: Comment on above: Patient Position: Sitting; Cuff Location : Left Arm; Cuff Size: Large 12-13-2009 11:12-0400 BSA (Body Surface Area) 1.61 m2 Mirella Mccracken [facility] Internal Medicine Work Phone: 12-13-2009 11:12-0400 Height 149.86 cm Mirella Mccracken [facility] Internal Medicine Work Phone: 12-13-2009 11:12-0400 Pulse (Heart Rate) 64 /min Mirella Mccracken [facility] Internal Medicine Work Phone: Comment on above: Pattern: Regular 12-13-2009 11:12-0400 Respiratory Rate 20 /min Mirella Mccracken [facility] Internal Medicine Work Phone: Comment on above: Pattern: Unlabored 12-13-2009 11:12-0400 Weight 65.86 kg Mirella Mccracken [facility] Internal Medicine Work Phone: 10-03-2009 11:50-0500 BMI (Body Mass Index) 27.37 kg/m2 [facility] Medicine Work Phone: 10-03-2009 11:50-0500 Body weight 61.46 kg Mirella Mccracken [facility] Internal Medicine Work Phone: 10-03-2009 11:50-0500 BP Diastolic 78 mm[Hg] Mirella Mccracken [facility] Internal Medicine Work Phone: Comment on above: Patient Position: Sitting; Cuff Location : Left Arm; Cuff Size: Large 10-03-2009 11:50-0500 BP Systolic 120 mm[Hg] Mirella Mccracken [facility] Internal Medicine Work Phone: Comment on above: Patient Position: Sitting; Cuff Location : Left Arm; Cuff Size: Large 10-03-2009 11:50-0500 BSA (Body Surface Area) 1.56 m2 Mirella Mccracken [facility] Internal Medicine Work Phone: 10-03-2009 11:50-0500 Height 149.86 cm Mirella Mccracken [facility] Internal Medicine Work Phone: 10-03-2009 11:50-0500 Pulse (Heart Rate) 64 /min Mirella Mccracken [facility] Internal Medicine Work Phone: Comment on above: Pattern: Regular 10-03-2009 11:50-0500 Respiratory Rate 20 /min Mirella Mccracken [facility] Internal Medicine Work Phone: Comment on above: Pattern: Unlabored 10-03-2009 11:50-0500 Weight 61.46 kg Mirella Mccracken [facility] Internal Medicine Work Phone: 01-17-2009 07:54-0400 BMI (Body Mass Index) 27.37 kg/m2 Mirella [facility] Internal Medicine Work Phone: 01-17-2009 07:54-0400 Body weight 61.46 kg Mirella Mccracken [facility] Internal Medicine Work Phone: 01-17-2009 07:54-0400 BP Diastolic 60 mm[Hg] Mirella Mccracken [facility] Internal Medicine Work Phone: Comment on above: Patient Position: Sitting; Cuff Location : Left Arm; Cuff Size: Large 01-17-2009 07:54-0400 BP Systolic 112 mm[Hg] Mirella Mccracken [facility] Internal Medicine Work Phone: Comment on above: Patient Position: Sitting; Cuff Location : Left Arm; Cuff Size: Large 01-17-2009 07:54-0400 BSA (Body Surface Area) 1.56 m2 Mirella Mccracken [facility] Internal Medicine Work Phone: 01-17-2009 07:54-0400 Head Circumference 0 cm Mirella Mccracken [facility] Internal Medicine Work Phone: 01-17-2009 07:54-0400 Height 149.86 cm Mirella Mccracken [facility] Internal Medicine Work Phone: 01-17-2009 07:54-0400 Pulse (Heart Rate) 64 /min Mirella Mccracken [facility] Internal Medicine Work Phone: Comment on above: Pattern: Regular 01-17-2009 07:54-0400 Respiratory Rate 20 /min Mirella Mccracken [facility] Internal Medicine Work Phone: Comment on above: Pattern: Unlabored 01-17-2009 07:54-0400 Weight 61.46 kg Mirella Mccracken [facility] Internal Medicine Work Phone: 01-12-2009 07:52-0400 BMI (Body Mass Index) 27.37 kg/m2 Mirella Mccracken [facility] Internal Medicine Work Phone: 01-12-2009 07:52-0400 Body weight 61.46 kg Mirella Mccracken [facility] Internal Medicine Work Phone: 01-12-2009 07:52-0400 BP Diastolic 78 mm[Hg] Mirella Mccracken [facility] Internal Medicine Work Phone: Comment on above: Patient Position: Sitting; Cuff Location : Left Arm; Cuff Size: Large 01-12-2009 07:52-0400 BP Systolic 122 mm[Hg] Mirella Mccracken [facility] Internal Medicine Work Phone: Comment on above: Patient Position: Sitting; Cuff Location : Left Arm; Cuff Size: Large 01-12-2009 07:52-0400 BSA (Body Surface Area) 1.56 m2 Mirella Mccracken [facility] Internal Medicine Work Phone: 01-12-2009 07:52-0400 Head Circumference 0 cm Mirella Mccracken [facility] Internal Medicine Work Phone: 01-12-2009 07:52-0400 Height 149.86 cm Mirella Mccracken [facility] Internal Medicine Work Phone: 01-12-2009 07:52-0400 Pulse (Heart Rate) 72 /min iMrella Mccracken [facility] Internal Medicine Work Phone: Comment on above: Pattern: Regular 01-12-2009 07:52-0400 Respiratory Rate 18 /min Mirella Mccracken [facility] Internal Medicine Work Phone: Comment on above: Pattern: Unlabored 01-12-2009 07:52-0400 Weight 61.46 kg Mirella Mccracken [facility] Internal Medicine Work Phone: 01-02-2009 09:31-0400 BMI (Body Mass Index) 27.37 kg/m2 Mirella Mccracken [facility] Internal Medicine Work Phone: 01-02-2009 09:31-0400 Body weight 61.46 kg Mirella Mccracken [facility] Internal Medicine Work Phone: 01-02-2009 09:31-0400 BP Diastolic 78 mm[Hg] Mirella Mccracken [facility] Internal Medicine Work Phone: Comment on above: Patient Position: Sitting; Cuff Location : Left Arm; Cuff Size: Large 01-02-2009 09:31-0400 BP Systolic 138 mm[Hg] Mirella Mccracken [facility] Internal Medicine Work Phone: Comment on above: Patient Position: Sitting; Cuff Location : Left Arm; Cuff Size: Large 01-02-2009 09:31-0400 BSA (Body Surface Area) 1.56 m2 Mirella Mccracken [facility] Internal Medicine Work Phone: 01-02-2009 09:31-0400 Head Circumference 0 cm Mirella Mccracken [facility] Internal Medicine Work Phone: 01-02-2009 09:31-0400 Height 149.86 cm [facility] Work Phone: 01-02-2009 09:31-0400 Pulse (Heart Rate) 72 /min Mirella Mccracken [facility] Internal Medicine Work Phone: Comment on above: Pattern: Regular 01-02-2009 09:31-0400 Respiratory Rate 20 /min Mirella Mccracken [facility] Internal Medicine Work Phone: Comment on above: Pattern: Unlabored 01-02-2009 09:31-0400 Weight 61.46 kg Mirella Mccracken [facility] Internal Medicine Work Phone: 12-07-2008 09:40-0400 BMI (Body Mass Index) 27.28 kg/m2 Mirella Mccracken [facility] Internal Medicine Work Phone: Comment on above: vision with correction OD= 20/50 OS=20/5 0 OU=20/50 12-07-2008 09:40-0400 Body weight 61.26 kg Mirella Mccracken [facility] Internal Medicine Work Phone: Comment on above: vision with correction OD= 20/50 OS=20/5 0 OU=20/50 12-07-2008 09:40-0400 BP Diastolic 78 mm[Hg] [facility] Work Phone: Comment on above: Patient Position: Sitting; Cuff Location : Left Arm; Cuff Size: Large vision with correcti on OD= 20/50 OS=20/50 OU=20/50 12-07-2008 09:40-0400 BP Systolic 122 mm[Hg] Mirella Mccracken [facility] Internal Medicine Work Phone: Comment on above: Patient Position: Sitting; Cuff Location : Left Arm; Cuff Size: Large vision with correcti on OD= 20/50 OS=20/50 OU=20/50 12-07-2008 09:40-0400 BSA (Body Surface Area) 1.56 m2 Mirella Mccracken [facility] Internal Medicine Work Phone: Comment on above: vision with correction OD= 20/50 OS=20/5 0 OU=20/50 12-07-2008 09:40-0400 Head Circumference 0 cm Mirella [facility] Internal Medicine Work Phone: Comment on above: vision with correction OD= 20/50 OS=20/5 0 OU=20/50 12-07-2008 09:40-0400 Height 149.86 [facility] Comment on above: vision with correction OD= 20/50 OS=20/5 0 OU=20/50 12-07-2008 09:40-0400 Pulse (Heart Rate) 72 /min [facility] Work Phone: Comment on above: Pattern: Regular vision with correcti on OD= 20/50 OS=20/50 OU=20/50 12-07-2008 09:40-0400 Respiratory Rate 20 /min Mirella [facility] Internal Medicine Work Phone: Comment on above: Pattern: Unlabored vision with correcti on OD= 20/50 OS=20/50 OU=20/50 12-07-2008 09:40-0400 Weight 61.26 [facility] Work Phone: Comment on above: vision with correction OD= 20/50 OS=20/5 0 OU=20/50 10-04-2008 09:20-0500 BMI (Body Mass Index) 26.31 kg/m2 Mirella Mccracken [facility] Internal Medicine Work Phone: 10-04-2008 09:20-0500 Body weight 59.08 kg [facility] Work Phone: 10-04-2008 09:20-0500 BP Diastolic 76 mm[Hg] Mirella [facility] Internal Medicine Work Phone: Comment on above: Patient Position: Sitting; Cuff Location : Left Arm; Cuff Size: Large 10-04-2008 09:20-0500 BP Systolic 124 mm[Hg] Mirella [facility] Internal Medicine Work Phone: Comment on above: Patient Position: Sitting; Cuff Location : Left Arm; Cuff Size: Large 10-04-2008 09:20-0500 BSA (Body Surface Area) 1.54 m2 Mirella [facility] Internal Medicine Work Phone: 10-04-2008 09:20-0500 Head Circumference 0 cm Mirella Mccracken [facility] Internal Medicine Work Phone: 10-04-2008 09:20-0500 Height 149.86 cm Mirella Mccracken [facility] Internal Medicine Work Phone: 10-04-2008 09:20-0500 Pulse (Heart Rate) 72 /min Mirella Mccracken [facility] Internal Medicine Work Phone: Comment on above: Pattern: Regular 10-04-2008 09:20-0500 Respiratory Rate 20 /min Mirella Mccracken [facility] Internal Medicine Work Phone: Comment on above: Pattern: Unlabored 10-04-2008 09:20-0500 Weight 59.08 kg Mirella Mccracken [facility] Internal Medicine Work Phone: 09-21-2008 14:19-0500 BMI (Body Mass Index) 26.9 kg/m2 Mirella Mccracken [facility] Internal Medicine Work Phone: 09-21-2008 14:19-0500 Body weight 60.41 kg Mirella Mccracken [facility] Internal Medicine Work Phone: 09-21-2008 14:19-0500 BP Diastolic 80 mm[Hg] Mirella Mccracken [facility] Internal Medicine Work Phone: Comment on above: Patient Position: Sitting; Cuff Location : Left Arm; Cuff Size: Standard 09-21-2008 14:19-0500 BP Systolic 142 mm[Hg] Mirella Mccracken [facility] Internal Medicine Work Phone: Comment on above: Patient Position: Sitting; Cuff Location : Left Arm; Cuff Size: Standard 09-21-2008 14:19-0500 BSA (Body Surface Area) 1.55 m2 Mirella Mccracken [facility] Internal Medicine Work Phone: 09-21-2008 14:19-0500 Head Circumference 0 cm Mirella Mccracken [facility] Internal Medicine Work Phone: 09-21-2008 14:19-0500 Height 149.86 cm Mirella Mccracken [facility] Internal Medicine Work Phone: 09-21-2008 14:19-0500 Pulse (Heart Rate) 64 /min Mirella Mccracken [facility] Internal Medicine Work Phone: Comment on above: Pattern: Regular 09-21-2008 14:19-0500 Respiratory Rate 20 /min Mirella Mccracken [facility] Internal Medicine Work Phone: Comment on above: Pattern: Unlabored 09-21-2008 14:19-0500 Weight 60.41 kg Mirella Mccracken [facility] Internal Medicine Work Phone: 08-24-2008 13:56-0500 BMI (Body Mass Index) 26.9 kg/m2 Mirella Mccracken [facility] Internal Medicine Work Phone: 08-24-2008 13:56-0500 Body weight 60.41 kg Mirella Mccracken [facility] Internal Medicine Work Phone: 08-24-2008 13:56-0500 BP Diastolic 88 mm[Hg] Mirella Mccracken [facility] Internal Medicine Work Phone: Comment on above: Patient Position: Sitting; Cuff Location : Left Arm; Cuff Size: Standard 08-24-2008 13:56-0500 BP Systolic 142 mm[Hg] Mirella Mccracken [facility] Internal Medicine Work Phone: Comment on above: Patient Position: Sitting; Cuff Location : Left Arm; Cuff Size: Standard 08-24-2008 13:56-0500 BSA (Body Surface Area) 1.55 m2 Mirella Mccracken [facility] Internal Medicine Work Phone: 08-24-2008 13:56-0500 Head Circumference 0 cm Mirella Mccracken [facility] Internal Medicine Work Phone: 08-24-2008 13:56-0500 Height 149.86 cm Mirella Mccracken [facility] Internal Medicine Work Phone: 08-24-2008 13:56-0500 Pulse (Heart Rate) 80 /min Mirella Mccracken [facility] Internal Medicine Work Phone: Comment on above: Pattern: Regular 08-24-2008 13:56-0500 Respiratory Rate 20 /min Mirella Mccracken [facility] Internal Medicine Work Phone: Comment on above: Pattern: Unlabored 08-24-2008 13:56-0500 Weight 60.41 kg Mirella Mccracken [facility] Internal Medicine Work Phone: 06-28-2008 14:04-0400 BMI (Body Mass Index) 26.93 kg/m2 Mirella Mccracken [facility] Internal Medicine Work Phone: 06-28-2008 14:04-0400 Body weight 60.47 kg Mirella Mccracken [facility] Internal Medicine Work Phone: 06-28-2008 14:04-0400 BP Diastolic 78 mm[Hg] Mirella Mccracken [facility] Internal Medicine Work Phone: Comment on above: Patient Position: Sitting; Cuff Location : Left Arm; Cuff Size: Standard 06-28-2008 14:04-0400 BP Systolic 140 mm[Hg] Mirella Mccracken [facility] Internal Medicine Work Phone: Comment on above: Patient Position: Sitting; Cuff Location : Left Arm; Cuff Size: Standard 06-28-2008 14:04-0400 BSA (Body Surface Area) 1.55 m2 Mirella Mccracken [facility] Internal Medicine Work Phone: 06-28-2008 14:04-0400 Head Circumference 0 cm Mirella Mccracken [facility] Internal Medicine Work Phone: 06-28-2008 14:04-0400 Height 149.86 cm Mirella Mccracken [facility] Internal Medicine Work Phone: 06-28-2008 14:04-0400 Pulse (Heart Rate) 68 /min Mirella Mccracken [facility] Internal Medicine Work Phone: Comment on above: Pattern: Regular 06-28-2008 14:04-0400 Respiratory Rate 16 /min Mirella Mccracken [facility] Internal Medicine Work Phone: Comment on above: Pattern: Unlabored 06-28-2008 14:04-0400 Weight 60.47 kg Mirella Mccracken [facility] Internal Medicine Work Phone: Encounters Encounter Date Encounter Type Care Provider Facility Start: 06-03-2025 ambulatory Yesika VICENTE Fa cility:[facility] Start: 05-22-2025 ambulatory Jeddenae VICENTE Fa cility:[facility] Start: 05-16-2025 ambulatory Tadky VICENTE Fa cility:[facility] Start: 05-16-2025 Registered Referred Yesika Dolan Start: 04-20-2025 End: 04-20-[address] Yesika Faust MD Work Phone: [facility] Start: 04-20-2025 End: 04-20-2025 Patient encounter procedure Miguel YATES -[facility] Work Phone: Start: 04-14-2025 ambulatory Yesika VICENTE Fa cility:[facility] Start: 04-14-2025 Registered Referred Yesika Dolan Start: 03-20-2025 End: 03-20-[address] Yesika Faust MD Work Phone: [facility] Start: 03-20-2025 End: 03-20-2025 Patient encounter procedure Zeina Balbuena NP-C -[facility] Work Phone: Start: 03-14-2025 End: 03-14-[address] Yesika Faust MD -[facility] Work Phone: Start: 03-14-2025 End: 03-14-[address] Yesika Faust MD Work Phone: [facility] Start: 03-14-2025 Registered Referred eYsika Dolan Start: 03-06-2025 Registered Referred Yesika Dolan Start: 03-06-2025 End: 03-06-[address] Yesika Faust MD Work Phone: [facility] Start: 03-06-2025 End: 03-06-2025 Patient encounter procedure Zeina MEEK [facility] Work Phone: Start: 02-27-2025 ambulatory Yesika VICENTE Fa cility:[facility] Start: 02-27-2025 Registered Referred Yesika Dolan Start: 02-23-2025 End: 02-23-[address] Yesika Faust MD Work Phone: [facility] Start: 02-23-2025 End: 02-23-2025 Patient encounter procedure Miguel Yariel YATES [facility] Work Phone: Start: 02-13-2025 ambulatory Yesika VICENTE Fa cility:[facility] Start: 02-13-2025 Registered Referred Yesika Dolan Start: 01-31-2025 End: 01-31-[address] Yesika Faust MD Work Phone: [facility] Start: 01-31-2025 End: 01-31-[address] Yesika Faust MD [facility] Work Phone: Start: 01-23-2025 ambulatory Yesika Franklin ty:[facility] Start: 01-23-2025 Registered Referred Zeina Dolan Start: 01-18-2025 End: 01-18-2025 Departed Referred Yesika Dolan Start: 01-18-2025 Registered Referred Yesika Dolan Start: 01-18-2025 End: 01-18-2025 ambulatory Yesika VICENTE Facility:[facility] Start: 01-14-2025 End: 01-14-[address] Yesika Faust MD Work Phone: [facility] Work Phone: Start: 01-14-2025 End: 01-14-2025 Departed Referred Yesika Dolan Start: 01-14-2025 End: 01-14-2025 ambulatory Yesika VICENTE Facility:[facility] Start: 01-12-2025 End: 01-12-[address] Yesika Faust MD Work Phone: [facility] Work Phone: Start: 01-12-2025 End: 01-12-2025 Departed Referred Yesika Dolan Start: 01-12-2025 Registered Referred Yesika Dolan Start: 01-12-2025 End: 01-12-2025 ambulatory Yesika VICENTE Facility:[facility] Start: 12-16-2024 End: 12-16-[address] Yesika Faust MD Work Phone: [facility] Work Phone: Start: 12-16-2024 End: 12-16-2024 Patient encounter procedure Zeina MEEK -[facility] Work Phone: Start: 12-14-2024 End: 12-14-[address] Yesika Faust MD Work Phone: [facility] Work Phone: Start: 12-14-2024 End: 12-14-2024 Departed Referred Yesika Dolan Start: 12-14-2024 Registered Referred Yesika Dolan Start: 12-14-2024 End: 12-14-2024 ambulatory Yesika VICENTE Facility:[facility] Start: 11-15-2024 End: 11-15-2024 ambulatory Yesika Faust Facility[place] Start: 11-15-2024 End: 11-15-[address] Yesika Faust MD -[facility] Work Phone: Start: 11-14-2024 End: 11-14-[address] Yesika Faust MD Work Phone: [facility] Work Phone: Start: 11-14-2024 End: 11-14-2024 Departed Referred Yesika Dolan Start: 11-14-2024 End: 11-14-2024 ambulatory Efewongbe Oleghe OLS Facility:[facility] Start: 10-27-2024 End: 10-27-2024 ambulatory Efewongbe Oleghe Facility:[facility] Start: 10-27-2024 End: 10-27-2024 Patient encounter procedure Miguel YATES -[facility] Work Phone: Start: 10-17-2024 ambulatory Efewongbe Scoutghe OLS Fa cility:[facility] Start: 10-17-2024 Registered Referred Yesika Dolan Start: 10-14-2024 ambulatory Efewongbe Oleghe OLS Fa cility:[facility] Start: 10-14-2024 Registered Referred Yesika Dolan Start: 09-20-2024 End: 09-20-2024 ambulatory Efewongbe Oleghe Facility:[facility] Start: 09-20-2024 End: 09-20-[address] Yesika Faust MD -[facility] Work Phone: Start: 09-16-2024 ambulatory Efewongbe Oleghe OLS Fa cility:[facility] Start: 09-16-2024 Registered Referred Yesika Dolan Start: 08-16-2024 End: 08-16-2024 Departed Referred Yesika Dolan Start: 08-16-2024 End: 08-16-2024 ambulatory Efewongbe Sammye OLS Facility:[facility] Start: 08-09-2024 End: 08-09-2024 ambulatory Efewongbe Oleghe Facility:[facility] Start: 08-04-2024 End: 08-04-2024 ambulatory Efewongbe Oleghe Facility:[facility] Start: 08-04-2024 End: 08-04-2024 ambulatory Efewongbe Oleghe OLS Facility:[facility] Start: 08-02-2024 End: 08-02-2024 ambulatory Efewongbe Oleghe OLS Facility:[facility] Start: 07-28-2024 End: 07-28-2024 ambulatory Zeina Balbuena NP Facility:[facility] Start: 07-04-2024 End: 07-04-2024 ambulatory Efewongbe Olekathiee Facility:[facility] Start: 06-27-2024 End: 06-27-2024 ambulatory Carmen Shaikh Facility:[facility] Start: 12-22-2023 End: 12-22-[address] Cl Tsang Work Phone: [facility] Work Phone: Start: 11-30-2023 End: 11-30-[address] Cl Tsang Work Phone: [facility] Work Phone: Start: 11-17-2023 End: 11-17-[address] Cl Tsang Work Phone: [facility] Work Phone: Start: 11-17-2023 End: 11-17-[address] lC Tsang Work Phone: [facility] Start: 10-20-2023 End: 10-20-[address] Cl Tsang Work Phone: [facility] Work Phone: Start: 10-08-2023 End: 10-08-[address] Cl Tsang Work Phone: [facility] Work Phone: Start: 08-25-2023 End: 08-25-[address] Cl Tsang Work Phone: [facility] Work Phone: Start: 08-18-2023 End: 08-18-[address] Cl Tsang Work Phone: [facility] Work Phone: Start: 08-18-2023 End: 08-18-[address] Cl Tsang Work Phone: [facility] Start: 06-30-2023 End: 06-30-[address] Cl Tsang Work Phone: [facility] Work Phone: Start: 06-08-2023 End: 06-08-[address] Cl Tsang Work Phone: [facility] Work Phone: Start: 06-04-2023 End: 06-04-[address] Cl Tsang Work Phone: [facility] Work Phone: Start: 05-28-2023 End: 05-28-[address] Cl Tsang Work Phone: [facility] Work Phone: Start: 05-21-2023 End: 05-21-[address] Cl Tsang Work Phone: [facility] Work Phone: Start: 05-19-2023 End: 05-19-[address] Cl Tsang Work Phone: [facility] Start: 05-13-2023 End: 05-13-[address] Cl Tsang Work Phone: [facility] Work Phone: Start: 04-09-2023 End: 04-09-[address] Cl Tsang Work Phone: [facility] Work Phone: Start: 04-07-2023 End: 04-07-[address] Cl Tsang Work Phone: [facility] [facility] Work Phone: Start: 02-17-2023 End: 02-17-[address] Cl Tsang Work Phone: [facility] Work Phone: Start: 02-17-2023 End: 02-17-[address] Cl Tsang Work Phone: [facility] Work Phone: Start: 02-17-2023 End: 02-17-[address] Cl Tsang Work Phone: [facility] Start: 02-10-2023 End: 02-10-[address] Cl Tsang Work Phone: [facility] Work Phone: Start: 01-12-2023 End: 01-12-[address] Cl Tsang Work Phone: [facility] Work Phone: Start: 01-12-2023 End: 01-12-[address] Cl Tsang Work Phone: [facility] Start: 12-29-2022 End: 12-29-[address] Cl Tsang Work Phone: [facility] Start: 12-23-2022 End: 12-23-[address] Cl Tsang Work Phone: [facility] Start: 12-05-2022 End: 12-05-[address] Cl Tsang Work Phone: [facility] Start: 11-18-2022 End: 11-18-[address] Cl Tsang Work Phone: [facility] Work Phone: Start: 11-18-2022 End: 11-18-[address] Cl Tsang Work Phone: [facility] Start: 10-28-2022 End: 10-28-[address] Cl Tsang Work Phone: [facility] Start: 10-17-2022 End: 10-17-[address] Cl Tsang Work Phone: [facility] Start: 10-08-2022 End: 10-08-[address] Cl Tsang Work Phone: [facility] Start: 09-01-2022 End: 09-01-[address] Cl Tsang Work Phone: [facility] Start: 08-19-2022 End: 08-19-[address] Cl Tsang Work Phone: [facility] Work Phone: Start: 08-19-2022 End: 08-19-[address] Cl Tsang Work Phone: [facility] Start: 07-29-2022 End: 07-29-[address] Cl Tsang Work Phone: [facility] Start: 05-29-2022 End: 05-30-[address] Cl Tsang Work Phone: [facility] Start: 05-20-2022 End: 05-20-[address] Cl Tsang Work Phone: [facility] Work Phone: Start: 05-20-2022 End: 05-20-[address] Cl Tsang Work Phone: [facility] Start: 04-18-2022 End: 04-18-[address] Cl Tsang Work Phone: [facility] Start: 03-07-[address] Cl herrera Work Phone: [facility] Start: 01-13-2022 End: 01-13-[address] Cl Tsang Work Phone: [facility] Start: 11-14-2021 End: 11-14-2021 Patient encounter procedure TRUDY YATES Work Phone: [facility] Start: 11-12-2021 End: 11-12-2021 Departed Referred TRUDY YATES Work Phone: [facility] Start: 09-30-2021 End: 09-30-2021 Patient encounter procedure TRUDY YATES Work Phone: [facility] Start: 05-05-2019 Review Mirella Mccracken [...] 07-02-2016 End: 07-02-2016 Phone Encounter Mirella Sunshine [facility] Start: 07-01-2016 End: 07-01-2016 Office outpatient visit 5 minutes Mirella [facility] Start: 06-25-2016 End: 06-25-2016 Office outpatient visit 25 minutes Mirella Mccracken [facility] Start: 05-21-2016 End: 05-21-2016 Office outpatient visit 10 minutes Mirella [facility] Start: 01-04-2016 End: 01-04-2016 Office outpatient visit 25 minutes Mirella Mccracken [facility] Start: 12-06-2015 End: 12-06-2015 Office outpatient visit 10 minutes Mirella Sun[facility] Start: 11-29-2015 End: 11-29-2015 Office outpatient visit 25 minutes Mirella Mccracken [facility] Start: 11-08-2015 End: 11-08-2015 [...] Start: 05-23-2015 End: 05-23-2015 Annotation/Addendum Mirella Sunshine [facility] Start: 05-23-2015 End: 05-23-2015 Office outpatient visit 5 minutes Mirella [facility] Start: 05-16-2015 End: 05-16-2015 Office outpatient visit 5 minutes Mirella Mccrack[facility] Start: 05-09-2015 End: 05-09-2015 Office outpatient visit 5 minutes Mirella Mccracken [facility] Start: 04-26-2015 End: 04-26-2015 Phone Encounter Mirella Sunshine [facility] Start: 04-19-2015 End: 04-19-2015 Office [...] 09-11-2014 End: 09-11-2014 Phone Encounter Mirella Sunshine [facility] Start: 08-31-2014 End: 08-31-2014 Office [...] Office outpatient visit 15 minutes Mirellaleatha Searson [facility] Start: 04-13-2014 End: 04-13-2014 Phone Encounter Mirellaleatha Searson [facility] al Medicine Start: 04-06-2014 End: 04-06-2014 Patient encounter procedure Mirellaleatha Searson [facility] Start: 04-06-2014 End: 04-06-2014 Patient encounter procedure Mirellaleatha Searson [facility] Start: 12-30-2013 End: 12-30-2013 Patient encounter procedure Mirella Mccracken [facility] Start: 12-22-2013 End: 12-22-2013 Patient encounter procedure Mirellalaetha Searson [facility] Start: 12-01-2013 End: 12-01-2013 Phone Encounter Mirellaleatha Searson [facility] Medicine Start: 12-01-2013 End: 12-01-2013 Patient encounter procedure Mirella Nicole [facility] Start: 09-23-2013 End: 09-23-2013 Patient encounter procedure Mirella Nicole [facility] Start: 09-13-2013 End: 09-13-2013 Phone Encounter Mirellaleatha Mccracken [facility] Start: 08-01-2013 End: 08-01-2013 Patient encounter procedure Mirella Nicole [facility] Start: 07-04-2013 End: 07-04-2013 Patient encounter procedure Mirella Nicole [facility] Start: 06-27-2013 End: 06-27-2013 Patient encounter procedure Mirella Mccracken [facility] Start: 06-20-2013 End: 06-20-2013 Patient encounter procedure Mirella Mccracken [facility] Start: 06-08-2013 End: 06-08-2013 Patient encounter procedure Mirella Nicole [facility] Start: 05-20-2013 End: 05-20-2013 Patient encounter procedure Mirella Nicole [facility] Start: 04-22-2013 End: 04-22-2013 Patient encounter procedure Mirella Nicole [facility] Start: 04-15-2013 End: 04-15-2013 Patient encounter procedure Mirella Nicole [facility] Start: 03-31-2013 End: 03-31-2013 Patient encounter procedure Mirella Mccracken [facility] Start: 02-28-2013 End: 02-28-2013 Patient encounter procedure Mirella Nicole [facility] Start: 11-15-2012 End: 11-15-2012 Patient encounter procedure Mirella Mccracken [facility] Start: 10-25-2012 End: 10-25-2012 Patient encounter procedure Mirella Mccracken [facility] Start: 10-21-2012 End: 10-21-2012 Patient encounter procedure Mirella Mccracken [facility] Start: 09-30-2012 End: 09-30-2012 Patient encounter procedure Mirella Mccracken [facility] Start: 09-30-2012 End: 09-30-2012 Phone Encounter Mirella Mccracken [facility] Medicine Start: 09-16-2012 End: 09-16-2012 Patient encounter procedure Mirellaleatha Mccracken [facility] Start: 05-27-2012 End: 05-28-2012 Nursing evaluation of patient and report Mirellaleatha Searson [facility] Start: 03-11-2012 End: 03-11-2012 Patient encounter procedure Mirellaleatha Searson [facility] Start: 03-04-2012 End: 03-05-2012 Patient encounter procedure Mirellaleatha Mccracken [facility] Start: 02-25-2012 End: 02-25-2012 Patient encounter procedure Mirellaleatha Mccracken [facility] Start: 02-05-2012 End: 02-05-2012 Phone Encounter Mirellaleatha Mccracken [facility] Start: 02-04-2012 End: 02-04-2012 Phone Encounter Mirellaleatha Mccracken [facility] Start: 01-30-2012 End: 01-30-2012 Patient encounter procedure Mirella Nicole [facility] Start: 01-15-2012 End: 01-15-2012 Patient encounter procedure Mirellaleatha Searson [facility] Start: 12-31-2011 End: 12-31-2011 Patient encounter procedure Mirella Mccracken [facility] Start: 12-26-2011 End: 12-26-2011 Patient encounter procedure Mriellaleatha Mccracken [facility] Start: 12-24-2011 End: 12-24-2011 Patient encounter procedure Mirellaleatha Mccracken [facility] Start: 12-15-2011 End: 12-15-2011 Patient encounter procedure Mirellaleatha Searson [facility] Start: 11-26-2011 End: 11-26-2011 Patient encounter procedure Mirella Nicole [facility] Start: 11-12-2011 End: 11-12-2011 Patient encounter procedure Mirella Mccrack[facility] Start: 11-06-2011 End: 11-06-2011 Office outpatient visit 25 minutes Mirella Mccracken [facility] Start: 10-22-2011 End: 10-22-2011 Annotation/Addendum Mirella Sunshine [facility] Start: 10-21-2011 End: 10-21-2011 Office outpatient visit 25 minutes Mirella Mccracken [facility] Start: 06-05-2011 End: 06-05-2011 Patient encounter procedure Mirella Mccracken [facility] Start: 05-08-2011 End: 05-08-2011 Patient encounter procedure Mirella Mccracken [facility] Start: 05-07-2011 End: 05-07-2011 Office outpatient visit 15 minutes Mirella Mccracken [facility] Start: 05-06-2011 End: 05-06-2011 Office outpatient visit 15 minutes Mirella Mccracken [facility] Start: 11-06-2010 End: 11-06-2010 Office outpatient visit 15 minutes Mirella Mccracken [facility] Start: 11-04-2010 End: 11-04-2010 Office outpatient visit 15 minutes Mirella Mccracken [facility] Start: 10-14-2010 End: 10-14-2010 Patient encounter procedure Mirella Mccracken [facility] Start: 07-17-2010 End: 07-17-2010 Patient encounter procedure Mirella Mccracken [facility] Start: 06-17-2010 End: 06-17-2010 Patient encounter procedure Mirella Mccracken [facility] Start: 01-25-2010 End: 01-25-2010 Patient encounter procedure Mirella Mccracken [facility] Start: 12-13-2009 End: 12-13-2009 Patient encounter procedure Mirella Mccracken [facility] Start: 10-03-2009 End: 10-03-2009 Office outpatient visit 10 minutes Mirella [facility] Start: 06-13-2009 End: 06-13-2009 Patient encounter procedure Mirella Sun[facility] Start: 01-17-2009 End: 01-17-2009 Office outpatient visit 15 minutes Mirella Mccracken [facility] Start: 01-12-2009 End: 01-12-2009 Office outpatient visit 25 minutes Mirella Mccracken [facility] Start: 01-02-2009 End: 01-02-2009 Patient encounter procedure Mirella Mccracken [facility] Start: 12-07-2008 End: 12-07-2008 Patient encounter procedure Mirella Mccracken [facility] Start: 10-04-2008 End: 10-04-2008 Patient encounter procedure Mirella Mccracken [facility] Start: 09-21-2008 End: 09-21-2008 Office outpatient visit 25 minutes Mirella Mccracken [facility] Start: 08-24-2008 End: 08-24-2008 Patient encounter procedure Mirella Mccracken [facility] Start: 06-28-2008 End: 06-28-2008 Patient encounter procedure Mirella Mccracken [facility] Start: 06-28-2008 End: 06-28-2008 Patient encounter procedure Mirella Mccracken [facility] Start: 06-26-2008 End: 06-26-2008 Historical Summary Mirella Mccracken [facility] Procedures Date Procedure Procedure Detail [...] 1 View (Portable) Comments: See Note; NOTES: [facility] Imaging Services [address] [place] [address] Chest 1 View (Portable) MR#: [id number] Acct: [id number] Name: AGUSTIN GARCIA Rep #: [id number] : 1940 F 79 From: Antoni Gaviria MD PCP: Mirella Mccracken DO Status: [facility] Study: Chest 1 View (Portable) Date of Exam: 05/27/19 Exam# [id number] Ordering Dr: Satish Gonzales MD STUDY: X-RAY [...] CC: Satish Gonzales MD; Mirella Mccracken DO Television Schedule Coordinator: Signed Mirella Mccracken Start: 05-27-2019 End: 05-27-2019 Shoulder min 2 Views Comments: See Note; NOTES: [facility] Imaging Services [address] [place] [address] Shoulder min 2 Views MR#: [id number] Acct: [id number] Name: AGUSTIN GARCIA Rep #: [id number] : 1940 F 79 From: Antoni Gaviria MD PCP: Mirella Mccracken DO Status: [facility] Study: Shoulder min 2 Views Date of Exam: 05/27/19 Exam# [id number] Ordering Dr: Aury Hyde MD STUDY: X-RAY [...] CC: Aury Hyde MD; Mirella Mccracken DO Television Schedule Coordinator: Signed Mirella Mccracken Start: 05-27-2019 End: 05-27-2019 Operative Report Comments: See Note; NOTES: [facility] Medical Records Department [address] [place] [address] Operative Report 05/27/19 1615 MR#: [id number] Acct: [id number] Name: AGUSTIN GARCIA Rep #: [id number] : 1940 79 From: Uriel Francois MD PCP: Mirella Mccracken DO Status: REG SDC Y Location: [place] [address] Report of Operation Date of Procedure: 05/27/19 [...] back to the operating room at the [facility] local she was placed in dorsolithotomy position went into the bladder with a 21 Kisw[place]ili rigid cystourethroscope cannulated the left ureteral orifice [...] 05-27-2019 Discharge Instruction Comments: See Note; NOTES: [facility] Medical Records Department [address] [place] [address] Instructions for Home/Discharge Instructions 05/27/19 1614 MR#: [id number] Acct: [id number] Name: AGUSTIN GARCIA Rep #: [id number] : 1940 79 From: Uriel Francois MD PCP: Mirella Mccracken DO Status: REG [facility] Discharge Diet: Light diet - advance as [...] or 2 Views Comments: See Note; NOTES: [facility] Imaging Services [address] [place] [address] Pelvis 1 or 2 Views MR#: [id number] Acct: [id number] Name: AGUSTIN GARCIA Rep #: [id number] : 1940 F 79 From: Antoni Gaviria MD PCP: Mirella Mccracken DO Status: [facility] Study: Pelvis 1 or 2 Views Date of Exam: 05/27/19 Exam# [id number] Ordering Dr: Uriel Francois MD STUDY: X-RAY [...] CC: Uriel Francois MD; Mirella Mccracken DO Television Schedule Coordinator: Signed Mirella Nicole Start: 05-05-2019 End: 05-05-2019 Abdomen/Pelvis WITH Contrast Comments: See Note; NOTES: [facility] Imaging Services [address] [place] [address] Abdomen/Pelvis WITH Contrast MR#: [id number] Acct: [id number] Name: AGUSTIN GARCIA Rep #: [id number] : 1940 F 79 From: Zoran Reinoso MD PCP: Mirella Mccracken DO Status: REG CLI Study: Abdomen/Pelvis WITH Contrast Date of Exam: 05/05/19 Exam# [id number] Ordering Dr: Mirella Mccracken DO STUDY: CT [...] Service support , CC: Mirella Mccracken DO Television Schedule Coordinator: Signed Mirella Mccracken Work Phone: Start: 03-18-2019 End: 03-18-2019 Pelvic (Non ) Comments: See Note; NOTES: [facility] Imaging Services [address] [place] [address] Pelvic (Non ) MR#: [id number] Acct: [id number] Name: AGUSTIN GARCIA Rep #: [id number] : 1940 F 78 From: Avi Fisher MD PCP: Mirella Mccracken DO Status: REG CLI Study: Pelvic (Non ) Date of Exam: 03/18/19 Exam# [id number] Ordering Dr: Mirella Mccracken DO STUDY: ULTRASOUND [...] Service support , CC: Mirella Mccracken DO Television Schedule Coordinator: Signed Mirella Mccracken Work Phone: Start: 03-15-2019 End: 03-15-2019 Venous Duplex Lower Extremity Comments: See Note; NOTES: [facility] Cardiovascular Services [address] [place] [address] Venous Duplex US, Unilateral 03/15/19 1340 MR#: [id number] Acct: [id number] Name: AGUSTIN GARCIA Rep #: [id number] : 1940 78 From: James Moctezuma MD [...] Dictated: 03/15/19 1340 Date Transcribed: 03/15/19 142 Television Schedule Coordinator: Signed Mirella Mccracken Work Phone: Start: 11-17-2017 End: 11-17-2017 PT D/C Summary (1) Comments: See Note; NOTES: [facility] Physical Therapy [facility] [address] [place] [address]. [address] [place] [address] Fax REHABILITATION SERVICES DISCHARGE SUMMARY MR#: [id number] Acct: [id number] Name: AGUSTIN GARCIA Rep #: [id number] : 1940 77 From: Chester Christine DPT, [...] please feel free to call me at [phone]. Thank you for the referral of this patient. Sincerely, Chester Christine DPT, OC <Electronically signed by Chester Christine DPT, MAKEDA, CSCS> 11/17/17 0920 CC: Mirella Mccracken DO EBG Signed Mirella Mccracken Start: 11-13-2017 End: 11-13-2017 Inital Evaluation (1) - PT Comments: See Note; NOTES: [facility] Physical Therapy [facility] [address] [place] [address]. [address] [place] [address] Fax REHABILITATION SERVICES INITIAL EVALUATION MR#: [id number] Acct: [id number] Name: AGUSTIN GARCIA Rep #: [id number] : 1940 77 From: Chester Christine DPT, MAKEDA, CSCS Referring Dr.: Mirella Mccracken DO Status: REG RCR Insurance: MEDICARE PART A B [facility] Patient's Visit Information AGUSTINDc GARCIA is a [...] to be FAXED BACK to us at [phone] for Medicare purposes. Please let me know [...] Min 2 Views Comments: See Note; NOTES: [facility] Imaging Services [address] [place] [address] Femur Min 2 Views MR#: [id number] Acct: [id number] Name: AGUSTIN GARCIA Rep #: [id number] : 1940 F 77 From: Edward Jha MD PCP: Mirella Mccracken DO Status: REG CLI Study: Femur Min 2 Views Date of Exam: 10/15/17 Exam# [id number] Ordering Dr: Mirella Mccracken DO STUDY: X-RAY [...] Edward Jha MD at 15:48 EST Tel [phone], Service support , CC: Mirella Mccracken DO Television Schedule Coordinator: Signed Mirella Mccracken Work Phone: Start: 10-15-2017 End: 10-15-2017 Hip 2-3 Views with Pelvis Comments: See Note; NOTES: [facility] Imaging Services [address] [place] [address] Hip 2-3 Views with Pelvis MR#: [id number] Acct: [id number] Name: AGUSTIN GARCIA Rep #: [id number] : 1940 F 77 From: Edward Jha MD PCP: Mirella Mccracken DO Status: REG CLI Study: Hip 2-3 Views with Pelvis Date of Exam: 10/15/17 Exam# [id number] Ordering Dr: Mirella Mccracken DO STUDY: X-RAY [...] Edward Jha MD at 15:54 EST Tel [phone], Service support , STUDY: X-RAY - PELVIS [...] Edward Jha MD at 15:55 EST Tel [phone], Service support , CC: Mirella Mccracken DO Television Schedule Coordinator: Signed Mirella Mccracken Work Phone: Start: 06-05-2017 End: 06-05-2017 Follow Up Appt 6 months Jose Vargas MD Start: 06-05-2017 End: 06-05-2017 [facility] Jose Vargas MD Start: 03-26-2017 End: 03-26-2017 Ribs Uni Min 3V w/PA Chest Comments: See Note; NOTES: [facility] Imaging Services [address] [place] [address] Verdana 4d Ribs Uni Min 3V w/PA Chest MR#: [id number] Acct: [id number] Name: AGUSTIN GARCIA Rep #: [id number] : 1940 F 76 From: Tomas Pat MD PCP: Mirella Mccracken DO Status: REG CLI Study: Ribs Uni Min 3V w/PA Chest Date of Exam: 03/26/17 Exam# [id number] Ordering Dr: Kaley Burkett MD STUDY: X-RAY [...] Service support , CC: Kaley Burkett MD; Mriella Mccracken DO Television Schedule Coordinator: Signed Kaley Burkett Work Phone: Start: 11-13-2016 End: 11-13-2016 Kidney and Bladder Comments: See Note; NOTES: [facility] Imaging Services [address] [place] [address] Radha 4d Kidney and Bladder MR#: [id number] Acct: [id number] Name: AGUSTIN GARCIA Rep #: [id number] : 1940 F 76 From: Mackenzie Ortega MD PCP: Mirella Mccracken DO Status: REG CLI Study: Kidney and Bladder Date of Exam: 11/13/16 Exam# [id number] Ordering Dr: Uriel Francois MD STUDY: RENAL [...] MD at 16:03 EST , Service support [phone], CC: Uriel Francois MD; Mirella Mccracken DO Television Schedule Coordinator: Signed Mirella Mccracken Start: 11-03-2016 End: 11-03-2016 Follow Up Appt 9 months Zaria Trevino PA-C Work Phone: Start: 11-03-2016 End: 11-03-2016 [facility] Zaria Trevino PA-C Work Phone: Start: 07-07-2016 End: 07-07-2016 Breast Limited Unilateral Comments: See Note; NOTES: [facility] Imaging Services [address] [place] [address] Verdana 4d Breast Limited Unilateral MR#: [id number] Acct: [id number] Name: RADHAAGUSTIN Rep #: [id number] : 1940 F 76 From: Edward Jha MD PCP: Mirella Mccracken DO Status: REG CLI Study: Breast Limited Unilateral Date of Exam: 07/07/16 Exam# [id number] Ordering Dr: Mirella Mccracken DO STUDY: ULTRASOUND [...] Edward Jha MD at 15:23 EDT Tel [phone], Service support [phone], CC: Mirella Mccracken DO Television Schedule Coordinator: Signed Mirella Mccracken Work Phone: Start: 07-07-2016 End: 07-07-2016 Unilat Rt Diag Digital AND CAD Comments: See Note; NOTES: [facility] Imaging Services [address] [place] [address] Verdana 4d Unilat Rt Diag Digital AND CAD MR#: [id number] Acct: [id number] Name: AGUSTIN GARCIA Rep #: [id number] : 1940 F 76 From: Edward Jha MD PCP: Mirella Mccracken DO Status: REG CLI Study: Unilat Rt Diag Digital AND CAD Date of Exam: 07/07/16 Exam# [id number] Ordering Dr: Mirella Mccracken DO MAMMOGRAPHY - [...] Edward Jha MD at 15:21 EDT Tel [phone], Service support [phone], CC: Mirella Mccracken DO Television Schedule Coordinator: Signed Mirella Mccracken Work Phone: Start: 05-21-2016 End: 05-22-2016 Foot min 3 Views Comments: See Note; NOTES: [facility] Imaging Services [address] [place] [address] Verkaley 4d Foot min 3 Views MR#: [id number] Acct: [id number] Name: AGUSTIN GARCIA Rep #: [id number] : 1940 F 76 From: Edward Jha MD PCP: Mirella Mccracken DO Status: REG CLI Study: Foot min 3 Views Date of Exam: 05/21/16 Exam# [id number] Ordering Dr: Mirella Mccracken DO STUDY: X-RAY [...] Edward Jha MD at 9:42 EDT Tel [phone], Service support [phone], CC: Mirella Mccracken DO Television Schedule Coordinator: Signed Mirella Mccracken Work Phone: Start: 05-07-2016 End: 05-07-2016 Follow Up Appt 6 months Jose Vargas MD Start: 05-07-2016 End: 05-07-2016 MMM Jose Vargas MD Start: 01-04-2016 End: 01-04-2016 Ecg routine ecg w/least 12 lds w/i&r [MEASUREMENTS ANALYSIS] Date of Test: 01/04/2016 10:09:41; Heart Rate: 59; ID Interval: 158; QRS: 88; QT Interval: 432; Corrected QT Interval (QTc): 431; P Wave [place]: 32; QRS Wave [place]: 10; T Wave [place]: 47; Blood Pressure: 110/64 [ECG DIAGNOSTIC STATEMENTS] Date of Test: 01/04/2016 10:09:41; Summary: Sinus Bradycardia WITHIN NORMAL LIMITS Mirella Mccracken Work Phone: Comment on above: sinus elin no acute chg Start: 11-29-2015 End: 11-29-2015 Carotid Duplex Ultrasound Comments: See Note; NOTES: [facility] Cardiovascular Services [address] [place] [address] Carotid Duplex Ultrasound 11/20/15 1035 MR#: [id number] Acct: [id number] Name: AGUSTIN GARCIA Rep #: [id number] : 1940 75 From: Miko Cutler MD [...] the left vertebral artery. Procedure Carotid Duplex 67305. The exam was diagnostic. Exam performed in [...] Dictated: 11/20/15 1035 Date Transcribed: 11/29/15 1556 Television Schedule Coordinator: Francisca Mccracken Start: 11-13-2015 End: 11-13-2015 Bilat Scrn Digital AND CAD Comments: See Note; NOTES: [facility] Imaging Services [address] [place] [address] Verdana 4d Bilat Scrn Digital AND CAD MR#: [id number] Acct: [id number] Name: AGUSTIN GARCIA Rep #: [id number] : 1940 F 75 From: Edward Jha MD PCP: Mirella Mccracken DO Status: REG CLI Study: Bilat Scrn Digital AND CAD Date of Exam: 11/13/15 Exam# [id number] Ordering Dr: Mirella Mccracken DO MAMMOGRAPHY - [...] delay biopsy of a clinically suspicious abnormality. [id number] Electronically Signed: Edward Jha MD at 14:46 EST Tel [phone], Service support [phone], CC: Mirella Mccracken DO Television Schedule Coordinator: Signed Mirella Mccracken Work Phone: Start: 11-05-2015 [...] Cervical without Contras Comments: See Note; NOTES: [facility] Imaging Services [address] [place], [place] [id number] CAT Scan Report MR#: [id number] Acct: [id number] Name: RADHAAGUSTIN Rep #: [id number] : 1940 F 75 From: Otoniel Tam MD PCP: Mirella Mccracken DO Status: REG CLI Study: Spine Cervical without Contras Date of Exam: 06/07/15 Exam# [id number] Ordering Dr: Louis Tsang STUDY: CT CERVICAL [...] MD at 16:59 EDT , Service support [phone], CC: Mirella Mccracken DO; [place] Television Schedule Coordinator: Signed Mirella Mccracken Start: 05-22-2015 End: 05-23-2015 Spine Lumbar without Contrast Comments: See Note; NOTES: [facility] Imaging Services [address] [place] [address] CAT Scan Report MR#: [id number] Acct: [id number] Name: AGUSTIN GARCIA Rep #: [id number] : 1940 F 75 From: Ruddy Pozo MD PCP: Mirella Mccracken DO Status: REG CLI Study: Spine Lumbar without Contrast Date of Exam: 05/22/15 Exam# [id number] Ordering Dr: Louis Tsang STUDY: CT LUMBAR [...] at 10:05 EDT Tel , Service support [phone], CC: Mirella Mccracken DO; [place] Television Schedule Coordinator: Signed Mirella Nicole Start: 05-09-2015 End: 05-10-2015 Documentation of current medications Jose Vargas MD Start: 05-09-2015 End: 05-09-2015 Follow Up Appt 6 months Jose Vargas MD Start: 05-09-2015 End: 10-23-2016 Follow Up Appt Other Jose Vargas MD Start: 05-09-2015 End: 05-09-2015 MMM Jose Vargas MD Start: 04-26-2015 End: 04-26-2015 Brain/Head W/WO Contrast Comments: See Note; NOTES: [facility] Imaging Services [address] [place] [address] CAT Scan Report MR#: [id number] Acct: [id number] Name: RADHAAGUSTIN Rep #: [id number] : 1940 F 74 From: Edward Jha MD PCP: Mirella Mccracken DO Status: REG CLI Study: Brain/Head W/WO Contrast Date of Exam: 04/26/15 Exam# [id number] Ordering Dr: Mirella Mccracken DO STUDY: CT [...] Edward Jha MD at 12:51 EDT Tel [phone], Service support [phone], CC: Mirella Mccracken DO Television Schedule Coordinator: Signed Mirella Mccracken Work Phone: Start: 10-24-2014 End: 10-24-2014 Breast Complete Unilateral Comments: See Note; NOTES: [facility] Imaging Services [address] [place] [address] Ultrasound Report MR#: [id number] Acct: [id number] Name: AGUSTIN GARCIA Rep #: [id number] : 1940 F 74 From: Edward Jha MD PCP: Mirella Mccracken DO Status: REG CLI Study: Breast Complete Unilateral Date of Exam: 10/24/14 Exam# [id number] Ordering Dr: Mirella Mccracken DO STUDY: ULTRASOUND [...] Edward Jha MD at 11:15 EST Tel [phone], Service support [phone], CC: Mirella Mccracken DO Television Schedule Coordinator: Signed Mirella Mccracken Work Phone: Start: 10-24-2014 End: 10-25-2014 Dexa Bone Density Study (HP) Comments: See Note; NOTES: [facility] Imaging Services [address] [place] [address] Bone Density Report MR#: [id number] Acct: [id number] Name: AGUSTIN GARCIA Rep #: [id number] : 1940 F 74 From: Edward Jha MD PCP: Mirella Mccracken DO Status: [facility] Study: Dexa Bone Density Study (HP) Date of Exam: 10/24/14 Exam# [id number] Ordering Dr: Mirella Mccracken DO STUDY: DUAL [...] Edward Jha MD at 10:14 EST Tel [phone], Service support [phone], CC: Mirella Mccracken DO Television Schedule Coordinator: Signed Mirella Mccracken Work Phone: Start: 10-19-2014 End: 10-20-2014 Bilat Scrn Digital AND CAD Comments: See Note; NOTES: [facility] Imaging Services [address] [place] [address] Breast Imaging Report MR#: [id number] Acct: [id number] Name: AGUSTIN GARCIA Rep #: [id number] : 1940 F 74 From: Edward Jha MD PCP: Mirella Mccracken DO Status: REG CLI Study: Bilat Scrn Digital AND CAD Date of Exam: 10/19/14 Exam# [id number] Ordering Dr: Mirella Mccracken DO MAMMOGRAPHY - [...] Edward Jha MD at 13:38 EST Tel [phone], Service support [phone], CC: Mirella Mccracken DO Television Schedule Coordinator: Signed Mirella Mccracken Work Phone: Start: 10-10-2014 [...] Brain/Head W/WO Contrast Comments: See Note; NOTES: [facility] Imaging Services [address] [place] [address] CAT Scan Report MR#: [id number] Acct: [id number] Name: AGUSTIN GARCIA Rep #: [id number] : 1940 F 74 From: Audie Hugo MD PCP: Mirella Mccracken DO Status: REG CLI Study: Brain/Head W/WO Contrast Date of Exam: 09/08/14 Exam# [id number] Ordering Dr: Mirella Mccracken DO STUDY: CT [...] To Hugo MD at 8:17 EST Tel [phone], Service support [phone], CC: Mirella Mccracken DO Television Schedule Coordinator: Signed Mirella Mccracken Work Phone: Start: 07-27-2014 End: 07-27-2014 History and Physical Exam Comments: See Note; NOTES: [facility] Medical Records Department [address] [facility] [place] [address] History and Physical 07/27/14 0753 MR#: [id number] Acct: [id number] Name: RADHAAGUSTIN Rep #: [id number] : 1940 74 From: Nella Howard PCP: Mirella Mccracken DO Status: PRE [facility] Location: [facility] DATE OF SERVICE: 07/28/2014 PREOPERATIVE DIAGNOSIS: Painful [...] intervention at [facility] on July 28, 2014. Pedal pulses are easily palpable bilaterally and consent was reviewed, signed and placed in chart. Nella Howard DPM T: NTS JOB: [id number] 07/27/14 1156 <Electronically signed by Nella Howard > Date: Time: Nella Howard CC: Mirella Mccracken DO; Nella Howard DPM Date Dictated: 07/27/14752 Date Transcribed: 07/27/14752 Television Schedule Coordinator: Signed ____ I have re-examined the patient. [...] Chest W/WO Contrast Comments: See Note; NOTES: [facility] Imaging Services [address] [place] [address] CAT Scan Report MR#: [id number] Acct: [id number] Name: AGUSTIN GARCIA Rep #: [id number] : 1940 F 73 From: Edward Jha MD PCP: Status: REG CLI Study: CTA Chest W/WO Contrast Date of Exam: 12/22/13 Exam# [id number] Ordering Dr: Mirella Mccracken DO STUDY: CTA [...] at 13:14 EDT Tel , Service support [phone], CC: Mirella Mccracken DO Television Schedule Coordinator: Signed Mirella Mccracken Work Phone: Start: 12-13-2013 End: 05-10-2015 *Hepatic Function Panel Jose Vargas MD Start: 12-13-2013 End: 05-10-2015 Lipid panel [AGGREGATE] Jose Vargas MD Start: 12-07-2013 End: 12-07-2013 Follow Up Appt Other Zaria Trevino PA-C Work Phone: Start: 12-07-2013 End: 12-07-2013 PFM Zaria Trevino PA-C Work Phone: Start: 08-08-2013 End: 08-08-2013 Follow Up Appt 4 months Zaria Trevion PA-C Work Phone: Start: 08-08-2013 End: 08-08-2013 Follow Up Appt Other Zaria Trevino PA-C Work Phone: Start: 08-08-2013 End: 08-08-2013 M Zaria Trevino PA-C Work Phone: Start: 08-08-2013 End: 08-08-2013 PFClara Trevino PA-C Work Phone: Start: 06-20-2013 End: 06-22-2013 Brain/Head w/wo Contrast Comments: See Note; NOTES: [facility] Imaging Services [address] [place] [address] CAT Scan Report MR#: [id number] Acct: [id number] Name: AGUSTIN GARCIA Rep #: [id number] : 1940 F 73 From: Audie Hugo MD PCP: Status: REG CLI Study: Brain/Head w/wo Contrast Date of Exam: 06/20/13 Exam# [id number] Ordering Dr: Kaley Burkett MD STUDY: CT [...] June 20, 2013 at 3:17:31 PM EDT [phone] Electronically Signed BW/BW If you are the referring physician and would like to consult with the radiologist who provided this interpretation, please contact To Hugo M.D. at [phone]. If this radiologist is unavailable, you will be directed to another radiologist to assist. If you are a patient with a question regarding this report, please contact your referring physician directly. Professional Interpretation Provided By: [employer], Phone , These documents contain legally protected [...] of these documents. CC: Kaley Burkett MD Television Schedule Coordinator: Signed Kaley Burkett Work Phone: Start: 05-04-2013 [...] End: 04-19-2013 Follow Up Appt Other Zaria Tervino PA-C Work Phone: Start: 04-18-2013 End: 07-07-2013 [...] Alyson richter Comment on above: with surgery [id number] Kidney Problems Alyson richter Comment on above: with surgery [id number] Kidney Problems Alyson richter Comment on above: with surgery [id number] Ligation of fallopia n tube Alyson Dixon [...] metabolic panel calcium total Metabolic Panel, Basic (83585) [facility] Work Phone: Start: 01-21-2018 Provider Instructions for Treatment [facility] Work Phone: Start: 11-24-2017 End: 11-24-2017 Appointment Appointment [facility] Work Phone: Start: 11-09-2017 Provider [...] stick/tablet reagent auto microscopy URINALYSIS, W/ MICRO (10264) [facility] Work Phone: Start: 05-07-2017 Urine albumin quantitative MICROALBUMIN: CREATININE RATIO (45996) AND (46324) [facility] Work Phone: Start: 12-25-2016 Procedure Education Eprescribed prescriptions (G8553) [facility] Work Phone: Start: 12-25-2016 Provider Instructions for Treatment [facility] Work Phone: Start: 11-03-2016 End: 11-03-2016 Follow Up Appt 9 months Follow Up Appt 9 months [facility] Work Phone: Start: 11-03-2016 End: 11-03-2016 PFM PFM [facility] Work Phone: Start: 09-25-2016 Procedure Education Eprescribed prescriptions (G8553) [facility] Work Phone: Start: 09-25-2016 Provider Instructions for Treatment [facility] Work Phone: Start: 07-02-2016 Lipid panel Lipid Panel (27784) [facility] Work Phone: Start: 06-25-2016 Provider Instructions for Treatment [facility] Work Phone: Start: 05-12-2016 End: 05-11-2015 *Hepatic Function Panel *Hepatic Function Panel [facility] Work Phone: Start: 05-12-2016 End: 05-11-2015 Lipid panel [AGGREGATE] *Lipid Profile CC PCP [facility] Work Phone: Start: 05-07-2016 End: 05-07-2016 Follow Up Appt 6 months Follow Up Appt 6 months [facility] Work Phone: Start: 05-07-2016 End: 05-07-2016 MMM MMM [facility] Work Phone: Start: 01-04-2016 Patient [...] Up Appt Other Follow Up Appt Other [facility] Work Phone: Start: 11-05-2015 End: 11-05-2015 PFM PFM [facility] Work Phone: Start: 10-24-2015 Provider Instructions for Treatment [facility] Work Phone: Start: 10-24-2015 Blood occult fecal hgb deter ia qual feces 1-3 FECAL OCCULT- Tubes sent home (40752) [facility] Work Phone: Start: 07-26-2015 Patient Education Anxiety: emotional health [facility] Work Phone: Start: 07-26-2015 Provider Instructions for Treatment [facility] Work Phone: Start: 07-26-2015 25 hydroxy includes fractions if performed CALCIFIDIOL (02200) VIT D 25 [facility] Work Phone: Start: 07-26-2015 Urnls dip stick/tablet reagent auto microscopy URINALYSIS, W/ MICRO (52387) [facility] Work Phone: Start: 07-26-2015 Urine albumin quantitative MICROALBUMIN: CREATININE RATIO (70556) AND (29563) [facility] Work Phone: Start: 07-26-2015 Comprehensive metabolic panel METABOLIC PANEL, COMPREHENSIVE (70256) [facility] Work Phone: Start: 07-26-2015 Blood count complete auto&auto difrntl wbc CBC W/AUTO DIFF WBC (51067) [facility] Work Phone: Start: 07-26-2015 Thyrotropin Qn TSH (54775) [facility] Work Phone: Start: 07-26-2015 Lipid panel LIPID PANEL (61465) [facility] Work Phone: Start: 05-09-2015 End: 05-09-2015 Follow Up Appt 6 months Follow Up Appt 6 months [facility] Work Phone: Start: 05-09-2015 End: 10-23-2016 Follow Up Appt Other Follow Up Appt Other [facility] Work Phone: Start: 05-09-2015 End: 05-09-2015 MMM MMM [facility] Work Phone: Start: 04-26-2015 Culture bct isol&prsmptv id isolate ea urine URINE IBRAHIMA CULTURE-IDENTIFICATN (80120) [facility] Work Phone: Start: 04-19-2015 Procedure Education Eprescribed prescriptions (G8599) [facility] Work Phone: Start: 04-19-2015 Provider Instructions for Treatment [facility] Work Phone: Start: 04-19-2015 Cobalamin (Vitamin B12) mass conc VITAMIN B-12 (CYANOCOBALAMIN) (02320) [facility] Work Phone: Start: 04-19-2015 Urnls dip stick/tablet rgnt auto w/o microscopy URINALYSIS W/O MICRO (64884) [facility] Work Phone: Start: 04-19-2015 Thyrotropin Qn TSH (04932) [facility] Work Phone: Start: 04-19-2015 Urine albumin quantitative MICROALBUMIN: CREATININE RATIO (75376) AND (51797) [facility] Work Phone: Start: 04-19-2015 Comprehensive metabolic panel METABOLIC PANEL, COMPREHENSIVE (71787) [facility] Work Phone: Start: 04-19-2015 Blood count complete auto&auto difrntl wbc CBC W/AUTO DIFF WBC (13096) [facility] Work Phone: Start: 04-19-2015 Lipid panel LIPID PANEL (29849) [facility] Work Phone: Start: 04-19-2015 25 hydroxy includes fractions if performed CALCIFIDIOL (43308) VIT D 25 [facility] Work Phone: Start: 01-11-2015 Provider Instructions for Treatment [facility] Work Phone: Start: 01-11-2015 25 hydroxy includes fractions if performed Vitamin D Hydroxy (47556) [facility] Work Phone: Start: 01-11-2015 Lipid panel LIPID PANEL (17575) [facility] Work Phone: Start: 01-11-2015 Thyrotropin Qn TSH (22095) [facility] Work Phone: Start: 01-11-2015 Urnls dip stick/tablet reagent auto microscopy URINALYSIS, W/ MICRO (16830) [facility] Work Phone: Start: 01-11-2015 Urine albumin quantitative MICROALBUMIN: CREATININE RATIO (37536) AND (36406) [facility] Work Phone: Start: 01-11-2015 Comprehensive metabolic panel METABOLIC PANEL, COMPREHENSIVE (47409) [facility] Work Phone: Start: 01-11-2015 Blood count complete auto&auto difrntl wbc CBC W/AUTO DIFF WBC (57962) [facility] Work Phone: Start: 10-31-2014 Provider Instructions for Treatment *Calcium Education (KF) [facility] Work Phone: Start: 10-12-2014 Provider Instructions for Treatment [facility] Work Phone: Start: 10-10-2014 End: 10-10-2014 Electrocardiogram, complete EKG (In office) [facility] Work Phone: Start: 10-10-2014 End: [...] includes fractions if performed Vitamin D Hydroxy (76133) [facility] Work Phone: Start: 08-31-2014 [...] 6 months Follow Up Appt 6 months [facility] Work Phone: Start: 04-10-2014 End: 04-10-2014 Follow Up BP Check Follow Up BP Check [facility] Work Phone: Start: 04-10-2014 End: 04-10-2014 MMM MMM [facility] Work Phone: Start: 04-06-2014 Procedure Education Eprescribed prescriptions (G8553) [facility] Work Phone: Start: 04-06-2014 Provider Instructions for Treatment [facility] Work Phone: Start: 04-06-2014 Prothrombin time (PT) Coag time (PPP) PT (Prothrobim Time) (37133) [facility] Work Phone: Comment on above: inr Start: 12-30-2013 Provider Instructions for Treatment [facility] Work Phone: Start: 12-13-2013 End: 05-10-2015 *Hepatic Function Panel *Hepatic Function Panel [facility] Work Phone: Start: 12-13-2013 End: 05-10-2015 Lipid panel [AGGREGATE] *Lipid Profile CC PCP [facility] Work Phone: Start: 12-07-2013 End: 12-07-2013 Follow Up Appt Other Follow Up Appt Other [facility] Work Phone: Start: 12-07-2013 End: 12-07-2013 PFM PFM [facility] Work Phone: Start: 12-01-2013 Patient Education Water in diet, brief version [facility] Work Phone: Start: 12-01-2013 Provider Instructions for Treatment [facility] Work Phone: Start: 08-08-2013 End: 08-08-2013 Follow Up Appt 4 months Follow Up Appt 4 months [facility] Work Phone: Start: 08-08-2013 End: 08-08-2013 Follow Up Appt Other Follow Up Appt Other [facility] Work Phone: Start: 08-08-2013 [...] difrntl wbc CBC, PLATELETS & AUT DIFF (58067) [facility] Work Phone: Start: 06-20-2013 CRP mass conc C-Reactive Protein (27761) [facility] Work Phone: Start: 06-20-2013 Sedimentation rate rbc non-automated Sed Rate Erythrocyte (26938) [facility] Work Phone: Start: 06-20-2013 Creatinine mass conc CREATININE BLOOD (14403) [facility] Work Phone: Start: 06-08-2013 Patient Education Flu (Influenza) *: flu shot [facility] Work Phone: Start: 05-20-2013 Provider Instructions for Treatment Reviewed Diagnostic Tests [facility] Work Phone: Start: 05-04-2013 End: 07-07-2013 *BMP *BMP [facility] Work Phone: Start: 04-27-2013 End: 04-27-2013 Pulmonary Fuction Test - complete Pulmonary Fuction Test - complete [facility] Work Phone: Start: 04-22-2013 Provider Instructions for Treatment Reviewed Diagnostic Tests [facility] Work Phone: Start: 04-19-2013 End: 04-20-2013 *BMP *BMP [facility] Work Phone: Start: 04-19-2013 End: 04-20-2013 aPTT *PTT-Partial Thromboplastin Time [facility] Work Phone: Start: 04-19-2013 End: 04-20-2013 CBC W Auto Differential panel - Blood *CBC without Diff [facility] Work Phone: Start: 04-19-2013 End: 04-20-2013 Chest x-ray X-Ray, Chest, PA & Lateral [facility] Work Phone: Start: 04-19-2013 End: 04-20-2013 Coagulation factor induced.INR assay in platelet poor plasma *PT/INR [facility] Work Phone: Start: 04-19-2013 End: 04-19-2013 Electrocardiogram, complete EKG (In office) [facility] Work Phone: Start: 04-19-2013 End: 04-19-2013 Follow Up Appt Other Follow Up Appt Other [facility] Work Phone: Start: 04-18-2013 End: 04-18-2013 Left & Right Heart Cath W/Grafts Left & Right Heart Cath W/Grafts [facility] Work Phone: Start: 04-15-2013 Patient Education Water in diet, brief version [facility] Work Phone: Start: 04-15-2013 Provider Instructions for Treatment [facility] Work Phone: Start: 03-15-2013 End: 03-09-2013 Echocardiography Echocardiogram (complete) [facility] Work Phone: Start: 02-28-2013 Provider Instructions for Treatment [facility] Work Phone: Start: 02-10-2013 End: 02-10-2013 Arterial exam Arterial exam [facility] Work Phone: Start: 02-10-2013 End: 02-10-2013 Electrocardiogram, complete EKG (In office) [facility] Work Phone: Start: 02-10-2013 End: 02-10-2013 Flecainide [Mass/volume] in Serum or Plasma *FLEC Flecainide (Tambocor) [address] [facility] Work Phone: Start: 02-10-2013 End: 02-10-2013 Follow Up Appt 6 months Follow Up Appt 6 months [facility] Work Phone: Start: 02-10-2013 End: 08-08-2013 Lipid panel [AGGREGATE] *Lipid Profile CC PCP [facility] Work Phone: Start: 02-10-2013 End: [...] urine URINE IBRAHIMA CULTURE (TY COL COUNT) (24596) [facility] Work Phone: Start: 09-16-2012 [...] 3 months Follow Up Appt 3 months [facility] Work Phone: Start: 03-05-2012 [...] End: 01-06-2012 Electrocardiogram, complete EKG (In office) [facility] Work Phone: Start: 01-06-2012 End: 01-06-2012 Follow Up Appt 3 months Follow Up Appt 3 months [facility] Work Phone: Start: 01-06-2012 End: 01-06-2012 Follow Up Appt Other Follow Up Appt Other [facility] Work Phone: Start: 01-06-2012 End: 04-18-2013 Lipid panel [AGGREGATE] *Lipid Profile [facility] Work Phone: Start: 12-31-2011 Provider Instructions for Treatment [facility] Work Phone: Start: 12-24-2011 Fibrin dgradj products d-dimer quantitative D-Dimer (69690) [facility] Work Phone: Start: 12-24-2011 Blood count complete automated CBC (AUTO) (78651) [facility] Work Phone: Start: 12-03-2011 Culture bacterial quanttative colony count urine URINE IBRAHIMA CULTURE-TY COL COUNT (13942) [facility] Work Phone: Start: 11-26-2011 Provider Instructions for Treatment [facility] Work Phone: Start: 11-06-2011 Provider Instructions for Treatment Reviewed Diagnostic Tests [facility] Work Phone: Start: 11-04-2011 Renal function panel Renal function Panel (18803) [facility] Work Phone: Start: 10-22-2011 CRP mass conc C-Reactive Protein (75277) [facility] Work Phone: Start: 10-21-2011 Renal function panel Renal function Panel (53007) [facility] Work Phone: Start: 10-21-2011 Provider Instructions for Treatment Follow up in 2 weeks [facility] Work Phone: Start: 10-21-2011 Fibrin dgradj products d-dimer quantitative D-Dimer (52025) [facility] Work Phone: Start: 10-21-2011 Troponin I.cardiac mass conc Troponin I (45494) [facility] Work Phone: Start: 10-21-2011 Creatine kinase mb fraction only CPK MB FRACTION (72223) [facility] Work Phone: Start: 10-21-2011 Creatine kinase total CREATINE KINASE TOTAL (51968) [facility] Work Phone: Start: 10-21-2011 CRP mass conc C-Reactive Protein (72432) [facility] Work Phone: Start: 06-17-2010 Provider Instructions for Treatment [facility] Work Phone: Start: 12-13-2009 Provider Instructions for Treatment [facility] Work Phone: Start: 01-17-2009 Provider Instructions for Treatment [facility] Work Phone: Start: 01-12-2009 Provider Instructions for Treatment *ERGOCALCIFEROL DOSAGE PER SHEWMON [facility] Work Phone: Start: 01-12-2009 Nuclear Ab IF titer (S) CORTES (ANTINUCLEAR ANTIBODY) (60413) [facility] Work Phone: Start: 01-12-2009 Rheumatoid factor quantitative RHEUMATOID FACTOR-QUANT (32193) [facility] Work Phone: Start: 01-12-2009 25 hydroxy includes fractions if performed Vitamin D Hydroxy (15644) [facility] Work Phone: Comment on above: do in 3-4 months Start: 01-02-2009 Provider Instructions for Treatment [facility] Work Phone: Start: 01-02-2009 25 hydroxy includes fractions if performed Vitamin D Hydroxy (96983) [facility] Work Phone: Start: 01-02-2009 1 25 dihydroxy includes fractions if performed VITAMIN D, 1, 25-DIHYDROXY (73488) [facility] Work Phone: Start: 01-02-2009 Thyrotropin Qn TSH (81351) [facility] Work Phone: Start: 01-02-2009 Protein electrophoretic fractj&quantj serum [facility] Work Phone: Start: 01-02-2009 Sedimentation rate rbc non-automated SED RATE ERYTHROCYTE (90941) [facility] Work Phone: Start: 01-02-2009 Phosphate mass conc PHOSPHORUS (64419) [facility] Work Phone: Start: 01-02-2009 Assay of parathormone PARATHORMONE (50627) [facility] Work Phone: Start: 01-02-2009 Hepatic function panel HEPATIC FUNCTION PANEL (53930) [facility] Work Phone: Start: 01-02-2009 Blood count complete automated CBC (AUTO) (31781) [facility] Work Phone: Start: 01-02-2009 Calcium mass conc CALCIUM SERUM (31067) [facility] Work Phone: Start: 01-02-2009 CRP mass conc C-REACTIVE PROTEIN (91883) [facility] Work Phone: Start: 01-02-2009 ALP enzyme act/vol ALKALINE PHOSPHATASE (68715) [facility] Work Phone: Start: 10-04-2008 Provider Instructions for Treatment [facility] Work Phone: Start: 10-04-2008 Lipid panel LIPID PANEL (39740) [facility] Work Phone: Start: 09-21-2008 [...] Immunizations Immunization Date Immunization Notes Care Provider [facility] 06-13-2009 influenza, seasonal, injectable Mirella Nicole [facility] Work Phone: Comment on above: Lot #[id number]-left deltoidgiven by:[facility] 06-28-2008 influenza, seasonal, injectable Mirella Nicole [facility] Work Phone: Comment on above: done km 0.5cc given im ;lt arm lot [id number] exp 02-20 Payers Date Payer Category Payer Self-pay [id number] 2024 Unknown [id number] 2024 Unknown [id number] 2016 Unknown [id number] 2004 Medicare [id number] Medicare MEDICARE PART A B [id number] Private Health Insurance [id number] Unknown Unknown [id number] 2.16.840.1.914497.3.579.2.462 Unknown [id number] 2.16.840.1.758567.3.579.2.462 Unknown [id number] 2.16.840.1.970091.3.579.2.462 Unknown [id number] 2.16.840.1.092241.3.579.2.462 Unknown [id number] 2.16.840.1.942223.3.579.2.462 Unknown [id number] 2.840.1.296362.3.579.2.462 Unknown [id number] 2.840.1.769407.3.579.2.462 Unknown [id number] 2.840.1.309608.3.579.2.462 Unknown [id number] 2.840.1.081583.3.579.2.462 Unknown [id number] 2.840.1.569853.3.579.2.462 Unknown [id number] 2.840.1.533819.3.579.2.462 Unknown [id number] 2.840.1.562886.3.579.2.462 Unknown [id number] 2.840.1.140952.3.579.2.462 Unknown [id number] 2.840.1.003341.3.579.2.462 Unknown [id number] 2.840.1.931610.3.579.2.462 Unknown [id number] 2.840.1.723700.3.579.2.462 Unknown [id number] 2.840.1.866736.3.579.2.462 Unknown [id number] 2.16.840.1.922982.3.579.2.462 Unknown [id number] 2.16.840.1.600365.3.579.2.462 Unknown [id number] 2.840.1.550860.3.579.2.462 Unknown [id number] 2.16.840.1.478836.3.579.2.462 Unknown [id number] 2.16.840.1.326589.3.579.2.462 Unknown [id number] 2.16.840.1.278898.3.579.2.462 Unknown [id number] 2.16.840.1.809096.3.579.2.462 Unknown [id number] 2.16.840.1.253278.3.579.2.462 Unknown [id number] 2.16.840.1.569614.3.579.2.462 Unknown [id number] 2.16.840.1.736172.3.579.2.462 Unknown [id number] 2.16.840.1.965036.3.579.2.462 Unknown [id number] 2.16.840.1.275376.3.579.2.462 Unknown [id number] 2.16.840.1.669190.3.579.2.462 Unknown [id number] 2.16.840.1.760136.3.579.2.462 Unknown [id number] 2.16.840.1.749027.3.579.2.462 Unknown [id number] 2.16.840.1.781057.3.579.2.462 Unknown [id number] 2.16.840.1.174627.3.579.2.462 Unknown [id number] 2.16.840.1.135894.3.579.2.462 Social History Date Type Detail Facility Caffeine Use Never smoker [facility] Work Phone: Comment on above: 2 per week 3-4 miles QD walking , heterosexua l, celibate Retired Tobacco use: Never smoker. [facility] Work Phone: Start: 09-30-2021 End: 07-09-2023 Tobacco smoking status NHIS Unknown if ever smoked [facility] Start: 06-12-2021 None [facility] Start: 06-12-2021 Homeless [facility] Start: 06-12-2021 Non-smoker [facility] Start: 1940 Sex Assigned At Female [facility] Start: 02-07-2024 End: 03-02-2025 Tobacco smoking status NHIS Never smoked tobacco (finding) [facility] Start: 12-14-2024 End: 01-04-2025 Sex Female (finding) [facility] Medical Equipment Procedure Code Equipment Code Equipment [...] availa ble [facility] Work Phone: Evaluation note Note Date & Type Note Facility Evaluation note Diagnosis Onset Date Pes anserinus bursitis of left knee noneactive Osteoarthritis of left knee noneactive [facility] Work Phone: Evaluation note Note Date & Type Note Facility Evaluation note Diagnosis Onset Date Pes anserinus bursitis of left knee noneactive Osteoarthritis of left knee noneactive Pes anserinus bursitis of left knee noneactive Osteoarthritis of left knee noneactive [facility] Work Phone: Evaluation note Note Date & Type Note Facility Evaluation note Diagnosis Onset Date Osteoarthritis of left knee noneactive Osteoarthritis of left knee noneactive Osteoarthritis of left knee noneactive Osteoarthritis of left knee noneactive [facility] Work Phone: Reason for referral (narrative) Note Date & Type Note Facility Reason for referral (narrative) No reason for referral information available [facility] Work Phone: Family History No Family History [...] Type:Provider Instructions for Treatment How to access [email or web address] [facility] online Indication:Coronary artery disease Start:06-Apr-2014 Instruction Type:Patient [...] for Treatment How to access health informa Web [employer] online Indication:Coronary artery disease Start:06-Apr-2014 Instruction Type:Patient [...] Yes May 27, 2019 6:37pm Power of Brake Repair Supervisor Yes May 6:37pm Advance Directive Response Recorded Date/ Time Advance Directives Yes May 2:39pm Living Will Yes June 04, 2022 2:39pm Power of Brake Repair Supervisor Yes May 2:39pm Advance Directive Response Recorded Date/ Time Advance Directives Yes July 9:15am Living Will Yes August 01 9:15am Power of Brake Repair Supervisor Yes August 01, 2022 9:15am Advance Directive Response Recorded Date/ Time Advance Directives Yes July 10:15am Living Will Yes August 01 10:15am Power of Brake Repair Supervisor Yes August 01, 2022 10:15am Advance Directive Response Recorded Date/ Time Advance Directives Yes July 09, 2023 8:23am Living Will Yes July 09 8:23am Power of Brake Repair Supervisor Yes July 09, 2023 8:23am Advance Directive Response Recorded Date/ Time Advance Directives Yes July 09, 2023 9:23am Living Will Yes July 09 9:23am Power of Brake Repair Supervisor Yes July 09, 2023 9:23am Advance Directive Response Recorded Date/ Time Advance Directives Yes July 09, 2023 9:23am Advance Directive Response Recorded Date/ Time Advance Directives Yes March 02 6:29pm Chief Complaint and Reason for Visit Chief Complaint Right hip xray [facility] MONTHLY EXAM Chief Complaint [facility] MONTHLY EXAM Chief Complaint [facility] NEW SYMPTOMS/CONCERN LABWORK MONTHLY EXAM Chief Complaint MONTHLY EXAM MONTH EXAM [facility] LEFT KNEE Rm 5 xray Reason for Visit Pes anserinus bursit is of left knee Osteoarthritis of left knee Chief Complaint [facility] K LEFT KNEE Rm 5 xray NEW CONCERN/PROBLEM LEFT KNEE room 1 MONTHLY EXAM [facility] MONTHLY Reason for Visit Pes anserinus bursit is of left knee Osteoarthritis of left knee Pes anserinus bursitis of left knee Osteoarthritis of left knee Chief Complaint NEW CONCERN/PROBLEM LEFT KNEE room 1 MONTHLY EXAM [facility] MONTHLY MONTHLY EXAM NEW PROBLEM [facility] Reason for Visit Pes anserinus bursit is of left knee Osteoarthritis of left knee Chief Complaint [facility] MONTHLY EXAM [facility] MONTHLY EXAM NEW CONCERN left knee Reason for Visit Pes anserinus bursit is of left knee Osteoarthritis of left knee Chief Complaint LEFT KNEE RM 5 LABWORK LEFT KNEE LEFT KNEE LEFT KNEE MONTHLY VISIT MONTHLY EXAM [facility] Reason for Visit Osteoarthritis of le ft knee Osteoarthritis of left knee Osteoarthritis of left knee Osteoarthritis of left knee Chief Complaint [facility] K MONTHLY EXAM - MD MONTHLY EXAM [facility] Chief Complaint MONTHLY EXAM MONTHLY EXAM MD [facility] MONTHLY EXAM MONTHLY EXAM MD Chief Complaint Admit Date LABWORK August 16, 2024 5 :00am [facility] September 16, 2024 5:00am MONTHLY EXAM September 20, 2024 7: 33pm LABWORK October 14, 2024 1 :00am [facility] October 17, 2024 5:00am MONTHLY EXAM October 27, 2024 11:58am LABWORK November 14, 2024 5:00 am Chief Complaint Admit Date [facility] September 16, 2024 5:00am MONTHLY EXAM September 20, 2024 7: 33pm LABWORK October 14, 2024 1 :00am [facility] October 17, 2024 5:00am MONTHLY EXAM October 27, 2024 11:58am LABWORK November 14, 2024 5:00 am MONTHLY EXAM November 15, 2024 5:36 pm LABWORK December 14, 2024 5:00 am Chief Complaint Admit Date LABWORK October 14, 2024 1 :00am [facility] October 17, 2024 5:00am MONTHLY EXAM October 27, 2024 11:58am LABWORK November 14, 2024 5:00 am MONTHLY EXAM November 15, 2024 5:36 pm LABWORK December 14, 2024 5:00 am LABWORK January 14, 2025 8:25am Chief Complaint Admit Date LABWORK October 14, 2024 1 :00am [facility] October 17, 2024 5:00am MONTHLY EXAM October 27, 2024 11:58am LABWORK November 14, 2024 5:00 am MONTHLY EXAM November 15, 2024 5:36 pm LABWORK December 14, 2024 5:00 am [facility] January 12, 2025 5:00 am LABWORK January 14, 2025 8:25am LABWORK January 18, 2025 5:00am Chief Complaint Admit Date LABWORK November 14, 2024 5:00 am MONTHLY EXAM November 15, 2024 5:36 pm LABWORK December 14, 2024 5:00 am Monthly Exam December 16, 2024 5:46 pm [facility] January 12, 2025 5:00 am LABWORK January 14, 2025 8:25am LABWORK January 18, 2025 5:00am [facility] January 23, 2025 5:0 0am Chief Complaint Admit Date LABWORK December 14, 2024 5:00 am Monthly Exam December 16, 2024 5:46 pm [facility] January 12, 2025 5:00 am LABWORK January 14, 2025 8:25am LABWORK January 18, 2025 5:00am [facility] January 23, 2025 5:0 0am MONTHLY EXAM January 31, 2025 4:00p m [facility] February 13, 2025 5:0 0am LABWORK February 27, 2025 5:00 am Chief Complaint Admit Date LABWORK December 14, 2024 5:00 am Monthly Exam December 16, 2024 5:46 pm [facility] January 12, 2025 5:00 am LABWORK January 14, 2025 8:25am LABWORK January 18, 2025 5:00am [facility] January 23, 2025 5:0 0am MONTHLY EXAM January 31, 2025 4:00p m [facility] February 13, 2025 5:0 0am MONTHLY EXAM February 23, 2025 9:45 am LABWORK February 27, 2025 5:00 am [facility] March 06, 2025 3: 47pm [facility] March 14, 2025 5:0 0am Chief Complaint Admit Date LABWORK December 14, 2024 5:00 am Monthly Exam December 16, 2024 5:46 pm [facility] January 12, 2025 5:00 am LABWORK January 14, 2025 8:25am LABWORK January 18, 2025 5:00am [facility] January 23, 2025 5:0 0am MONTHLY EXAM January 31, 2025 4:00p m [facility] February 13, 2025 5:0 0am MONTHLY EXAM February 23, 2025 9:45 am LABWORK February 27, 2025 5:00 am NEW CONCERN March 06, 2025 3:00 pm [facility] March 06, 2025 3: 47pm [facility] March 14, 2025 5:0 0am Chief Complaint Admit Date [facility] January 12, 2025 5:00 am LABWORK January 14, 2025 8:25am LABWORK January 18, 2025 5:00am [facility] January 23, 2025 5:0 0am MONTHLY EXAM January 31, 2025 4:00p m [facility] February 13, 2025 5:0 0am MONTHLY EXAM February 23, 2025 9:45 am LABWORK February 27, 2025 5:00 am NEW CONCERN March 06, 2025 3:00 pm [facility] March 06, 2025 3: 47pm [facility] March 14, 2025 5:0 0am New Concern March 20, 2025 4:08p m LABWORK April 14, 2025 5:0 0am Chief Complaint Admit Date [facility] January 12, 2025 5:00 am LABWORK January 14, 2025 8:25am LABWORK January 18, 2025 5:00am [facility] January 23, 2025 5:0 0am MONTHLY EXAM January 31, 2025 4:00p m [facility] February 13, 2025 5:0 0am MONTHLY EXAM February 23, 2025 9:45 am LABWORK February 27, 2025 5:00 am NEW CONCERN March 06, 2025 3:00 pm [facility] March 06, 2025 3: 47pm [facility] March 14, 2025 5:0 0am Monthly Exam March 14, 2025 10:00 pm New Concern March 20, 2025 4:08p m LABWORK April 14, 2025 5:0 0am Chief Complaint Admit Date LABWORK January 18, 2025 5:00am [facility] January 23, 2025 5:0 0am MONTHLY EXAM January 31, 2025 4:00p m [facility] February 13, 2025 5:0 0am MONTHLY EXAM February 23, 2025 9:45 am LABWORK February 27, 2025 5:00 am NEW CONCERN March 06, 2025 3:00 pm [facility] March 06, 2025 3: 47pm [facility] March 14, 2025 5:0 0am Monthly Exam March 14, 2025 10:00 pm New Concern March 20, 2025 4:08p m LABWORK April 14, 2025 5:0 0am MONTHLY EXAM April 20, 2025 11: 08am Additional Source Comments INFORMATION SOURCE (unrecogn ized section and content) DATE CREATED AUTHOR 10/03/2019 [facility] ([place]) DATE CREATED AUTHOR AUTHOR'S EVELYN ATLEO 06/07/2025 [facility] Goals (unrecognized section and [...] Primary Care Provider Active Zeina Balbuena NP, [employer] SHE[employer] REPRINTING UNIT OPERATOR-C Attending Provider Active Team Status: Inactive [...] Inactive Member Role Status Dates Dr. Yesika Fuast MD Primary Care Provider Active Start: October [...] 2024 End: December 16, 2024 Zeina Tickton [employer] REPRINTING UNIT OPERATOR, [employer] REPRINTING UNIT OPERATOR-C Attending Provider Active Start: December 16, [...] 2024 End: December 16, 2024 Zeina Balbuena [employer]OTG[employer] SHE[employer] REPRINTING UNIT OPERATOR, [employer] SHE[employer] REPRINTING UNIT OPERATOR-C Attending Provider Active Start: December 16, [...] Care Provider Active Start: March 06, 2025 Yeskia VICENTE MD Attending Provider Active Start: March [...] End: March 06, 2025 Zeina Balbuena NP [employer] REPRINTING UNIT OPERATOR-C Attending Provider Active Start: March 06, [...] 2025 End: March 06, 2025 Zeina Balbuena SHOTG[employer] SHELL REPRINTING UNIT OPERATOR, [employer] REPRINTING UNIT OPERATOR-C Attending Provider Active Start: March 06, 2025 End: March 06, 2025 Team Status: Inactive Member Role/Relationship Status Dates Dr. Yesika Faust MD Primary Care Provider Active Start: March 20, 2025 End: March 20, 2025 Zeina Balbuena [employer]OTG[employer] SHE[employer] REPRINTING UNIT OPERATOR, SHOT[employer] SHELL REPRINTING UNIT OPERATOR-C Attending Provider Active Start: March 20, [...] 2025 End: March 20, 2025 Zeina Balbuena [employer]OTG[employer] SHE[employer] REPRINTING UNIT OPERATOR, [employer]OT[employer]LL REPRINTING UNIT OPERATOR-C Attending Provider Active Start: March 20, [...] 2025 End: March 06, 2025 Zeina Balbuena [employer] SHE[employer] REPRINTING UNIT OPERATOR, SHOTG[employer] SHELL REPRINTING UNIT OPERATOR-C Attending Provider Active Start: March 06, [...] End: March 20, 2025 Zeina Balbuena NP, [employer]OTG[employer] SHELL REPRINTING UNIT OPERATOR-C Attending Provider Active Start: March 20, [...] BE BASED ON THE PRIMARY CLINICAL RECORDS. [facility]. provides no warranty or guarantee of the accuracy or completeness of information in this document."
[2025-06-19 07:35] LABS: Hematocrit 38.1 % (37-47); Hemoglobin 12.9 g/dL (12.0-15.0); Immature Granulocytes Count 0.010 X10^3/uL (0.0-0.0); Mean Corp Hgb Conc 33.9 g/dL (32-36); Mean Corpuscular Volume 95.0 fL (81-99); Mean Platelet Vol. 10.8 fl (6.2-12.0); NRBC Flagged by Analyzer 0 % (0-5); Platelet Count 193 K/mm3 (150-450); RBC Distribution Width CV 13.3 % (11.6-14.6); RBC Distribution Width SD 46.5 fl (35.1-43.9); Red Blood Count 4.01 M/mm3 (4.2-5.4); White Blood Count 5.4 K/mm3 (4.4-11.0)
[2025-06-19 07:50] LABS: Anion Gap 11 (5-15); BUN 15 mg/dL (4-19); BUN/Creat Ratio 28.8 RATIO (10-20); Calcium,Total 9.2 mg/dL (7.6-11.0); Carbon Dioxide 25.4 mmol/L (21.0-32.0); Chloride 106 mmol/L (98-108); Glucose 91 mg/dL (70-99); Potassium 3.9 mmol/L (3.3-5.1)
== END ==
LOC: OLS.WHLCAR 04:42
PROVIDERS: PCP Internal Medicine; Referring Provider Internal Medicine; Visit Provider Internal Medicine
DX: G30.9 Alzheimer's disease, unspecified (principal); R53.82 Chronic fatigue, unspecified; I10 Essential (primary) hypertension; I25.10 Atherosclerotic heart disease of native coronary artery without angina pectoris
CPT/HCPCS: 36415; 80048; 85025

== ENCOUNTER 2025-06-28 19:22 | Emergency (ER) | payer MEDICARE, MEDICAID, SELFPAY ==
[2025-06-28 19:24] VITALS: BP 173/98; PULSE 83; RESP 18; TEMP 36.8; O2SAT 97
--- NOTE | 2025-06-28 19:53 | EDS_ITS ---
HPI History of Present Illness Chief Complaint: Confusion Narrative Narrative: 85-year-old female past medical history of dementia with agitation presents from [facility] after being combative with staff. Patient denies any fevers or chills, no nausea or vomiting, denies that she is in pain anywhere. She had not been combative with squad or staff here as of yet. On review of her paperwork, she is DO NOT RESUSCITATE Comfort Care arrest. [facility] Medical History Dyspnea Intermittent claudication Shortness of breath Family history of coronary artery disease Family history of hyperlipidemia Family history of hypertension Home Medications ?Medication ?Instructions ?Recorded ?Last Taken ?Type aspirin 81 mg tablet,delayed 81 mg PO DAILY@0800 07/2505/25/15 History release diclofenac sodium 1 % topical gel 4 g topical BID 09/14 04/04 Unknown History melatonin 3 mg capsule 3 mg PO HS 04/09/23 Unknown History acetaminophen 500 mg tablet 1,000 mg PO TID 02/07/24 U nknown History donepezil 10 mg tablet 10 mg PO QHS 02/07/24 Unknow n History duloxetine 60 mg capsule,delayed 60 mg PO DAILY Unknown History release sennosides 8.6 mg-docusate sodium 2 tab-cap PO QHS Unknown History 50 mg tablet (Senexon-S) pregabalin 25 mg capsule 25 mg PO QDAY neuropathic pa in 30 06/05/25 Unknown Rx days #30 caps lorazepam 0.5 mg tablet 0.5 mg PO TID agitation 30 d ays 06/26/25 Unknown Rx #90 tabs brexpiprazole 1 mg tablet (Rexulti) 1 mg PO DAILY 06/14 02/05 Unknown History divalproex 125 mg capsule,delayed 125 mg PO TID Unknown History release sprinkle mirtazapine 7.5 mg tablet 7.5 mg PO QHS 06/28/25 Unkno wn History Allergy/AdvReac Type Severity Reaction Status Date / Time sulfamethoxazole Allergy Unknown Other Verified 06/28/25 19:24 acetaminophen (From Vicodin) Allergy Other Verified 06/28/25 19:24 hydrocodone (From Vicodin) Allergy Other Verified 06/28/25 19:24 Family History Other Family history of coronary artery disease Family history of hyperlipidemia Family history of hypertension Social History Smoking Status: Never smoker ROS ROS ED ROS Narrative Review of systems limited secondary to dementia. Patient denies fevers or chills, no nausea or vomiting, states she is not in pain anywhere. Denies any other symptoms. EXAM Physical Exam Narrative Exam Narrative: Afebrile. Vital signs noted. Nontoxic-appearing. Cardiovascular examination feels regular rate and rhythm. Lungs are clear to auscultation bilaterally. Abdomen soft and nontender without guarding or rebound. Neurological exam ination shows her comfortably lying on the cot. Awake, alert, interactive, currently pleasant. Const Vital Signs: 06/28/25 19:24 06/28/25 21:23 Temperature 98.3 F Temperature Source Oral Pulse Rate 83 Respiratory Rate 18 Blood Pressure 173/98 H 139/89 H Blood Pressure Mean 123 105 Pulse Ox 97 Oxygen Delivery Method Room Air MDM MDM MDM Narrative Medical decision making narrative: Differential diagnosis includes but not limited to dementia with agitation exacerbation versus dehydration versus UTI causing mental status change. Patient bolused normal saline 1 L intravenously. CBC, BMP, and UAC will be checked. I reviewed her laboratory work and she has normal white count of 5.2 with hemoglobin 13.2, hematocrit 39.9, platelet count 219. BMP is remarkable for glucose of 129 with a normal anion gap of 9, BUN of 20 which I think is nonspecific and creatinine 0.78. Urinalysis obtained and is negative for infection with 0-5 WBCs and 0 bacteria. I do not feel antibiotics are indicated. She was extremely agitated with the staff. I reviewed her medication list and she is supposed to be taking Ativan 0.5 mg orally up to 3 times a day. As this is already on her medication list and she is still agitated, she was administered Haldol 2 mg intravenously. She was still mildly combative. She will be dosed her Ativan 0.5 mg intravenously and discharged back to the senior living facility. I do not feel that she requires observation or admission as she has a history of dementia with agitation. Disposition is discharged home in stable condition. History & Record Review Discussion w/independent historian: Patient Additional record(s) reviewed:: Prior ED visit (Last seen in 2023 in ED.) Lab Data Attestation: I reviewed the patient's lab results. Labs: Laboratory Results - last 24 hr 06/28/25 06/28/25 20:10 20:15 WBC 5.2 RBC 4.18 L Hgb 13.2 Hct 39.9 MCV 95.5 MCH 31.6 MCHC 33.1 RDW Std Deviation 46.7 H RDW Coeff of Jeff 13.2 Plt Count 219 MPV 10.2 Immature Gran % (Auto) 0.200 Neut % (Auto) 53.8 Lymph % (Auto) 30.5 [place] % (Auto) 10.3 H Eos % (Auto) 4.6 Baso % (Auto) 0.6 Absolute Neuts (auto) 2.8 Absolute Lymphs (auto) 1.59 Nucleated RBC % 0 Sodium 141 Potassium 4.3 Chloride 103 Carbon Dioxide 28.7 Anion Gap 9 BUN 20 H Creatinine 0.78 Est GFR (MDRD) Non-Af 74 BUN/Creatinine Ratio 25.4 H Glucose 129 H Calcium 9.4 Urine Color Yellow Urine Clarity Clear Urine pH 6.5 Ur Specific [place] 1.015 Urine Protein 15 H Urine Glucose (UA) Normal Urine Ketones Negative Urine Occult Blood 10 H Urine Nitrite Negative Urine Bilirubin Negative Urine Urobilinogen Normal Ur Leukocyte Esterase Negative Urine RBC 0-5 SEEN Urine WBC 0-5 SEEN Ur Squamous Epith Cells 0 SEEN Urine Bacteria 0 SEEN Urine Mucus 0 SEEN Discharge Plan Triage Chief Complaint: Confusion ED Provider: Aric Oneil Dx/Rx/DC Orders Clinical Impression: Dementia with agitation, Combative behavior Instructions: ED DEMENTIA Alzheimer's, ED CAREGIVER SUPPORT for DEMENTIA Prescriptions: No Action diclofenac sodium 1 % gel 4 g topical BID Rx Instructions: apply to single elbow, wrist or hand; for hand includes palm/fingers/back of hand melatonin 3 mg capsule 3 mg PO HS aspirin 81 MG tablet 81 mg PO DAILY@0800 Patient Comments: HEART/BLOOD PRESSURE divalproex 125 mg capsule, delayed rel sprinkle 125 mg PO TID mirtazapine 7.5 mg tablet 7.5 mg PO QHS Rexulti 1 mg tablet 1 mg PO DAILY sennosides-docusate sodium [Senexon-S] 8.6-50 mg tablet 2 tab-cap PO QHS acetaminophen 500 mg tablet 1,000 mg PO TID donepezil 10 mg tablet 10 mg PO QHS duloxetine 60 mg capsule,delayed release(DR/EC) 60 mg PO DAILY pregabalin 25 mg capsule 25 mg PO QDAY 30 Days Qty: 30 0RF Rx Instructions: Give in evening. lorazepam 0.5 mg tablet 0.5 mg PO TID 30 Days Qty: 90 0RF Primary Care Provider: Yesika Faust Referrals: Yesika Faust MD [Primary Care Provider, Internal Medicine] - As soon as possible Print Language: Armenian Disposition Disposition: Home, Self Care
[2025-06-28 20:26] LABS: Mucous, Urine 0 SEEN /hpf (<or=2+); Squamous Epithelial Cells - UA 0 SEEN /hpf (5-10)
[2025-06-28 20:28] LABS: Hematocrit 39.9 % (37-47); Hemoglobin 13.2 g/dL (12.0-15.0); Immature Granulocytes Count 0.010 X10^3/uL (0.0-0.0); Mean Corp Hgb Conc 33.1 g/dL (32-36); Mean Corpuscular Volume 95.5 fL (81-99); Mean Platelet Vol. 10.2 fl (6.2-12.0); NRBC Flagged by Analyzer 0 % (0-5); Platelet Count 219 K/mm3 (150-450); RBC Distribution Width CV 13.2 % (11.6-14.6); RBC Distribution Width SD 46.7 fl (35.1-43.9); Red Blood Count 4.18 M/mm3 (4.2-5.4); White Blood Count 5.2 K/mm3 (4.4-11.0)
--- OUTSIDE RECORDS SUMMARY | 2025-06-28 20:29 | XMS RPT_ITS | CCD ---
Author Organization [facility] Care Team Providers Care Cooperage Shop Supervisor Name Role Phone Hung Davison Unavailable Unavailable NicoleMirella jiang Unavailable Armando Gutierrez Unavailable [facility], [facility] Unavailable Art Curry Unavailable Alba Sargent Unavailable Amita Antoine Unavailable Dick Morris Unavailable [facility] Unavailable Kya Valdivia Unavailable Joe Skinner Unavailable Alyson Dixon Unavailable Unavailable Unavailable Unavailable TRUDY Chambers Attending Provider Dr. Cl Tsang Primary Care Provider MD Cl Tsang Referring Provider Unavailable Dr. Thom Montiel Attending Provider TRUDY Chambers Referring Provider [phone] Esha HEAD ESTHETICIAN, HEAD ESTHETICIAN-C Zeina Attending Provider Dr. Cl Williamson Primary Care Provider Dr. Cl Tsang Primary Care Provider Esha HEAD ESTHETICIAN, HEAD ESTHETICIAN-C Zeina Attending Provider Dr. Cl Williamson Primary Care Provider Esha HEAD ESTHETICIAN, HEAD ESTHETICIAN-C Zeina Attending Provider Dr. Cl Williamson Referring Provider TRUDY Chambers Attending Provider [phone] Dr. Thom Montiel Attending Provider Dr. Cl Tsang Primary Care Provider Dr. Cl Tsang Referring Provider TRUDY Chambers Attending Provider [phone] Dr. Thom Montiel Attending Provider Esha HEAD ESTHETICIAN, HEAD ESTHETICIAN-C Zeina Attending Provider Dr. Tomas Humphrey Attending Provider [phone] Dr. Yesika Faust Attending Provider [phone] Dr. Cl Tsang Primary Care Provider Dr. Cl Tsang Referring Provider Dr. Thom Montiel Attending Provider [phone] Cl Tsang Primary Care Provider Esha HEAD ESTHETICIAN, HEAD ESTHETICIAN-Lio Pastrana Attending Provider Dr. Yesika Reed Attending Provider [phone] Dr. Cl Tsang Referring Provider TRUDY Chambers Attending Provider [phone] Dr. Cl Tsang Primary Care Provider Dr. Cl Tsang Referring Provider TRUDY Chambers Attending Provider [phone] Dr. Thom Montiel Attending Provider [phone] Esha HEAD ESTHETICIAN, HEAD ESTHETICIAN-C Zeina Attending Provider Dr. Yesika Reed Attending Provider [phone] Dr. Cl Tsang Primary Care Provider Dr. Yesika Faust Attending Provider [phone] TRUDY Parada Attending Provider [phone] Dr. Cl Tsang Primary Care Provider Dr. Yesika Faust Attending Provider [phone] Hawa HEAD ESTHETICIAN-C Carmen Attending Provider [phone] Christianne GE, Dr. [...] Dr. Napoles Attending Provider [phone] Esha HEAD ESTHETICIAN-CZeina Attending Provider [phone] Christianne GE, Dr. Napoles Primary Care Provider Yesika Faust MD Attending Provider Unavaila raffi Balbuena HEAD ESTHETICIAN-CZeina Attending Provider Christianne GE, Dr. Napoles Primary Care Provider Yesika Fasut MD Attending Provider Unavailchristian Faust MD, Dr. Napoles Attending Provider [phone] Miguel Parada Attending Provider Christianne GE, Dr. Napoles Primary Care Provider Yesika Faust MD Attending Provider Unavailchristian Balbuena HEAD ESTHETICIAN-CZeina Attending Provider Christianne GE, Dr. Napoles Primary Care Provider Yesika Faust MD Attending Provider Unavaila ble Yesika Negron Attending Unavailjeferson e Yesika Faust Primary Care Unavailable Oleandreea OLS, Yesika Attending Unavailabl e Christianne, Yesika Primary Care Unavailable Oleandreea VICENTE, Efewongbe Attending Unavailabl e Oleghe, Efewongbe Primary Care Unavailable Oleghe OLS, Efewongbe Attending Unavailabl e Oleghe OLS, Efewongbe Referring Unavailabl e Oleghe, Efewongbe Primary Care Unavailable [...] Unavailable Oleghe, Efewongbe Primary Care Unavailable [place] HEAD ESTHETICIAN, Zeina Attending Unavailable Oleghe, Efewongbe Primary Care Unavailable [place] HEAD ESTHETICIAN, Zeina Attending Unavailable Oleghe OLS, Efewongbe Attending [...] Unavailable Oleghe, Efewongbe Attending Unavailable Oleghe, Efewongbe Attending Unavailable Oleghe, Efewongbe Primary Care Unavailable [place] HEAD ESTHETICIAN, Zeina Attending Unavailable Oleghe, Efewongbe Primary Care Unavailable [place] HEAD ESTHETICIAN, Zeina Attending Unavailable Oleghe, Efewongbe Primary Care Unavailable Oleghe, Efewongbe Primary Care Unavailable [place] HEAD ESTHETICIAN, Zeina Attending Unavailable Carmen Shaikh Attending Unavailable Oleghe, Efewongbe Primary Care Unavailable Oleghe, Efewongbe Primary Care Unavailable [place] HEAD ESTHETICIAN, Zeina Attending Unavailable Oleghe OLS, Efewongbe Attending Unavailabl e Oleghe, Efewongbe Primary Care Unavailable Oleghe OLS, Efewongbe Attending Unavailabl e Oleghe, Efewongbe Primary Care Unavailable Allergies Allergy Classification Reported Allergen(s) Allergy Type Date of Onset Reaction(s) Facility (2 sources) acetaminophen / HYDROcodone; Translations: [VICODIN] allergy to substance 05-08-20 11 [facility] Work Phone: (20 sources) HYDROcodone; Translations: [HYDROCODONE] allergy to substance 12-30-19 12 Other [facility] Work Phone: (1 source) Sulfonamides [...] (18 sources) Acetaminophen Drug Allergy 09-01-20 Other [facility] (18 sources) Sulfamethoxazole Drug Allergy 09-01-20 Other [facility] (1 source) Acetaminophen Drug Allergy 02-07-20 [facility] (1 source) Sulfamethoxazole Drug Allergy 02-07-20 [facility] Medications Current Medications Medication Drug [...] TABS One tablet by mouth daily ASPIRIN [id number] Kaelyn Ellis RN Start: 11-12-2011 End: 11-12-2011 ASPIRIN LOW DOSE, 81MG (Oral Tablet Delayed Release) [address] qd for 0 days Quantity: 30 {Tablet_DR} Refills: 0 Ordered: 12-Nov-2011 Mirella Mccracken DO, DO, Kathleen Start : 12-Nov-2011 End : 12-Nov-2011 Discontinued End: 04-12-2012 take 1 tablet by mouth once daily ASPIRIN EC 81 MG TBEC One tablet by mouth daily ASPIRIN [id number] Jose Vargas MD cloNIDine hydrochloride 0.1 mg [...] hand docusate sodium 50 mg / sennosides, senior living 8.6 mg oral tablet (11 sources) Start: [...] One tablet by mouth daily DULOXETINE HCL [id number] Jose Vargas MD Comment on above: substitute [...] Start: 04-09-2023 take 1 capsule by mo ut every six hours as needed for pain [...] 2021 1:00am September 30, 2024 5:08pm Vit C,O-Cs-Ybwhi-Lutein-Zeax an (10 sources) Start: 05-13-2019 Vit C,E-Zn-Development Architect vl-Vtfguw-Tskcwh Active 1 EACH PO DAILY May 13, 2019 9:27am Start: 05-13-2019 End: 05-21-2023 Vit C,O-Cb-Acmqd-Lutein-Zeax an Discontinued 1 EACH PO DAILY May 13, 2019 12:00am May 21, 2023 10:07am Start: 05-13-2019 End: 05-21-2023 Vit C,W-En-Gvftr-Lutein-Zeax an Discontinued 1 EACH PO DAILY May 12, 2019 11:00pm May 21, 2023 9:07am Start: 05-13-2019 Vit C,E-Zn-Development Architect db-Netice-Xublvs Active 1 EACH PO DAILY May 12, 2019 11:00pm Start: 05-13-2019 Vit C,E-Zn-Development Architect eb-Nomuvg-Fcksih Active 1 EACH PO DAILY May 13, 2019 12:00am Completed/Discontinued Medications Medication Drug Class(es) Dates Sig (Normalized) Sig (Original) HYDROCODONE-ACETAM INOPHEN (2 sources) Opioid Agonist Start: 05-07-2016 take 1 tablet by mouth once daily at bedtime NORCO 5-325 MG TABS One tablet by mouth daily @ bedtime HYDROCODONE-ACETAMI NOPHEN [id number] Jose Vargas MD Start: 05-07-2016 End: 06-05-2017 take 1 tablet by mouth once daily at bedtime NORCO 5-325 MG TABS One tablet by mouth daily @ bedtime HYDROCODONE-ACETAMINOPHEN [id number] Jose Vargas MD acetaminophen 325 mg / [...] PERCOCET 5-325 MG TABS As needed OXYCODONE-ACETAMINOPHEN [id number] Kaelyn Ellis RN Start: 12-07-2013 PERCOCET 5-325 MG TABS As needed OXYCODONE-ACETAMINOPHEN [id number] Zaria Trevino PA-C Start: 12-07-2013 End: 11-05-2015 PERCOCET 5-325 MG TABS As ne eded OXYCODONE-ACETAMINOPHEN [id number] Zaria Trevino PA-C Start: 02-10-2013 PERCOCET 10-32 5 MG TABS As needed OXYCODONE-ACETAMINOPHEN [id number] Jose Vargas MD Comment on above: thirty [...] One tablet by mouth daily AMIODARONE HCL [id number] Jose Vargas MD Start: 11-25-2011 take 1 tablet by jeffry twice daily AMIODARONE HCL 200 MG TABS One tablet by mouth twice daily AMIODARONE HCL [id number] Jose Vargas MD amoxicillin 500 mg oral [...] One tablet by mouth daily ATORVASTATIN CALCIUM [id number] Zaria Trevino PA-C Start: 11-25-2011 End: 04-06-2014 [...] tablet by mouth daily CALCIUM CARBONATE TABS [id number] Dick Morris DO calcium carbonate / vitamin D (2 sources) Start: 01-06-2012 take 1 tablet by mouth once daily CALCIUM + D 600-200 MG-UNIT TABS One tablet by mouth daily CALCIUM CARBONATE-VITAMIN D 16600576681 Jose Vargas MD Start: 01-06-2012 End: 04-12-2012 take 1 tablet by mouth once daily CALCIUM + D 600-200 MG-UNIT TABS One tablet by mouth daily CALCIUM CARBONATE-VITAMIN D 59292401631 Jose Vargas MD casanthranol 30 mg / [...] capsule by mouth every week VITAMIN D3, [id number] (Oral Capsule) 1 (one) Capsule Capsule q week for 0 days Quantity: 4 {Capsule} Refills: 3 Ordered: 29-Nov-2015 Alyson Dixon LPN Start : 13-Jul-2014 End : 29-Nov-2015 Inactive Start: 01-06-2012 End: 04-12-2012 take 1 tablet by mouth once daily VITAMIN D 2000 UNIT TABS One tablet by mouth daily CHOLECALCIFEROL [id number] Jose Vargas MD ciprofloxacin 500 mg oral [...] One tablet by mouth daily CRANBERRY CAPS [id number] Zaria Trevino PA-C CRANBERRY-VITAMIN C, 84-20MG (Oral [...] 0.05 % OINT apply twice daily DESONIDE [id number] Dick Morris DO desoximetasone 2.5 mg/ml topical cream (20 sources) Corticosteroid Start: 05-07-2011 End: 06-05-2011 TOPICORT, 0.25% (External Cream) 1 Cream bid for 0 days Quantity: 1 {Cream} Refills: 0 Ordered: 05-Jun-2011 Alyson Dixon LPN Start : 07-May-2011 End : 05-Jun-2011 Inactive TOPICORT 0.25 % CREA apply twice daily DESOXIMETASONE [id number] Dick Morris DO End: 04-12-2012 TOPICORT 0.25 % CREA apply t wice daily DESOXIMETASONE 53086981799 Jose Vargas MD diazePAM 2 mg oral [...] tablet by mouth twice daily DIPHENHYDRAMINE HCL 65582660120 Mary Nolen RN ergocalciferol 40376 unt oral capsule (20 sources) Provitamin D2 Compound Start: 01-12-2009 End: 04-13-2014 take 1 capsule by mouth every week ERGOCALCIFEROL, [id number] (Oral Capsule) 1 Capsule 2 x week for 0 days Quantity: 8 {Capsule} Refills: 3 Ordered: 13-Apr-2014 Alyson Dixon LPN Start : 12-Jan-2009 End : 13-Apr-2014 Inactive End: 01-06-2012 VITAMIN D (ERGOCALCIFEROL) 5 0000 UNIT CAPS one tablet twice a week ERGOCALCIFEROL [id number] Dick Morris DO estradiol 0.025 mg vaginal [...] tablet by mouth three times daily GABAPENTIN [id number] Jose Vargas MD Start: 02-10-2013 End: 11-05-2015 take 1 tablet by mouth twice daily GABAPENTIN 600 MG TABS One tablet by mouth twice daily GABAPENTIN [id number] Zaria Trevino PA-C Start: 01-06-2012 take 1 tablet by jeffry th three times daily NEURONTIN 100 MG CAPS One tablet by mouth three times daily GABAPENTIN [id number] Jose Vargas MD hydrOXYzine hydrochloride 50 mg [...] once daily ISOSORBIDE MONONITRATE ER 30 MG [id number] One tablet by mouth daily (Imdur) ISOSORBIDE MONONITRATE [id number] Zaria Trevino PA-C Start: 04-27-2013 take 1 tablet by jeffry th once daily IMDUR 60 MG [id number] One tablet by mouth daily ISOSORBIDE MONONITRATE [id number] Jose Vargas MD Start: 03-09-2013 take 1 tablet by jeffry th once daily IMDUR 30 MG [id number] One tablet by mouth daily ISOSORBIDE MONONITRATE [id number] Jose Vargas MD [id number]-[id number] TAB S (2 sources) take 1 tablet by mouth once daily CEREFOLIN TABS One tablet by mouth daily [id number]-[id number] TABS [id number] Dick Morris DO End: 12-22-2011 take 1 tablet by mouth once daily CEREFOLIN TABS One tablet by mouth daily [id number]-[id number] TABS [id number] Mary Nolen RN lisinopril 5 mg oral tablet (20 sources) Angiotensin Converting Enzyme Inhibitor Start: 04-24-2014 End: 06-27-2014 take 1 tablet by mouth once daily LISINOPRIL 2.5 MG TABS One tablet by mouth daily LISINOPRIL [id number] Kaelyn Ellis RN Start: 12-07-2013 End: 04-10-2014 take 1 tablet by mouth once daily LISINOPRIL 5 MG TABS One tablet by mouth daily LISINOPRIL [id number] Jose Vargas MD Start: 04-27-2013 End: 11-05-2015 [...] TABS One tablet by mouth daily LUTEIN [id number] Zaria Trevino PA-C End: 07-08-2012 take 1 tablet by mouth once daily LUTEIN CAPS One tablet by mouth daily LUTEIN CAPS 60620395699 Dick Morris DO melatonin 3 mg / [...] TABS One tablet by mouth daily MELOXICAM [id number] Zaria rTevino PA-C metaxalone 800 mg oral tablet (18 [...] tablet by mouth twice daily METOPROLOL TARTRATE 72531168502 Jose Vargas MD Start: 03-11-2012 End: 04-06-2014 [...] tablet by mouth twice daily METOPROLOL TARTRATE [id number] Jose Vargas MD Multivitamin preparation (18 sources) End: 11-29-2015 MULTIVITAMIN (Oral Liquid) for 0 days Refills: 0 Ordered: 29-Nov-2015 Alyson Dixon LPN End : 29-Nov-2015 Inactive nitroglycerin 0.4 mg sublingual tablet (20 sources) Nitrate Vasodilator Start: 01-06-2012 End: 04-10-2014 NITROSTAT 0.4 MG SUBL 1 tablet under tongue every 5 min up to 3 X NITROGLYCERIN [id number] Jose Vargas MD Start: 12-26-2011 End: 11-29-2015 [...] CPDR One capsule by mouth daily OMEPRAZOLE [id number] Lex Munoz Start: 12-31-2011 End: 06-20-2013 PRILOSEC, 20MG (Oral Capsule Delayed Release) [address] qd for 0 days Quantity: 30 {Capsule_DR} Refills: 0 Ordered: 20-Jun-2013 FRANCI Castelan Start : 31-Dec-2011 End : 20-Jun-2013 Inactive End: 12-22-2011 take 1 tablet by mouth once daily PRILOSEC 10 MG CPDR One tablet by mouth daily OMEPRAZOLE [id number] Dick Morris DO pantoprazole 20 mg delayed release oral tablet (2 sources) Proton Pump Inhibitor End: 04-12-2012 take 1 tablet by mouth once daily PROTONIX 20 MG TBEC One tablet by mouth daily PANTOPRAZOLE SODIUM [id number] Jose Vargas MD pravastatin sodium 80 mg [...] Three tablets by mouth daily PREDNISONE TABS [id number] Mary Nolen RN take 3 tablets by mo uth once daily PREDNISONE TABS Three tablets by mouth daily PREDNISONE TABS [id number] Dick Morris DO rosuvastatin calcium 10 mg [...] One tablet by mouth daily ROSUVASTATIN CALCIUM [id number] Jose Vargas MD Comment on above: substitute generic Mail order. DOCUSATE SODIUM CAPS (2 sources) COLACE CAPS as n eeded DOCUSATE SODIUM CAPS [id number] Dick Morris DO End: 10-10-2014 COLACE CAPS as needed 10/10 DOCUSATE SODIUM CAPS [id number] Zaria Trevino PA-C 28 actuat teriparatide 0.02 [...] mouth once daily DETROL LA 4 MG [id number] One tablet by mouth daily TOLTERODINE TARTRATE [id number] Mary Nolen RN take 1 tablet by jeffry th once daily DETROL LA 4 MG [id number] One tablet by mouth daily TOLTERODINE TARTRATE [id number] Dick Morris DO traMADol hydrochloride 50 mg [...] mouth three times daily TRAMADOL HCL TABS [id number] Dick Morris DO End: 12-22-2011 take 1 tablet by mouth three times daily ULTRAM TABS One tablet by mouth three times daily TRAMADOL HCL TABS [id number] Mary Nolen RN Comment on above: [age]-- [...] : 01-Dec-2013 End : 06-Apr-2014 Inactive Vit C,I-He-Wwjqw-Lutein-Ze axan 1 EACH capsule (11 sources) Start: 019 End: 023 take 1 capsule by mouth once daily Vit C,I-Nd-Dnnhf-Lutein-Z eaxan 1 EACH capsule Discontinued 1 NMA PO DAILY May 13, 2019 12:00am May 21, 2023 10:07am CHOLECALCIFEROL (4 sources) Start: 016 End: 016 take 1 tablet by mouth once daily VITAMIN D 1000 UNIT TABS One tablet by mouth daily CHOLECALCIFEROL [id number] Zaria Trevino PA-C Start: 11-02-[address] [facility] once daily VITAMIN D 1000 UNIT TABS One tablet by mouth daily CHOLECALCIFEROL [id number] Mary Nolen RN Start: 02-10-2013 End: 10-10-2014 take 1 tablet by mouth once daily VITAMIN D 1000 UNIT TABS One tablet by mouth daily CHOLECALCIFEROL [id number] Zaria Trevino PA-C Start: 02-10-2013 take 1 tablet by jeffry th once daily VITAMIN D 1000 UNIT TABS One tablet by mouth daily CHOLECALCIFEROL [id number] Jose Vargas MD Problems Active Problems Problem [...] disease (20 sources) Atherosclerotic heart disease of [place] coronary artery without angina pectoris; Translations: [Coronary [...] current use of drug therapy; Translations: [Other meterman (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 therapy] 11-23-2017 Episodic Other bone [...] (current) use of other medications; Translations: [Other long-term (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 therapy] Onset: 07-08-2013 Resolved: 05-11-2015 [...] p laced her on asa-- cardio at [place]- he said no more plavix ever- rec [...] p laced her on asa-- cardio at [place]- he said no more plavix ever- rec [...] Auto (Unsp spec) [#/Vol] 1.39 10*3/uL 0.83-4.51 [facility] Absolute neutrophil countOrd ered By: Yesika Butterfieldkathierafaela on 05-16-2025 Neutrophils (Bld) [#/Vol] 9.3 10*3/uL High 2.0-7.7 [facility] Anion gap in Serum or Plasma Ordered By: Yesika Faust on 05-16-2025 Anion gap [Moles/Vol] 12 mmol/L 5-15 [facility] Automated lymphocyte count a s percentage of total leukocytesOrdered By: Yesika Faust on 05-16-2025 Lymphocytes/100 WBC Auto (Unsp spec) 11.7 % Low 19-41 [facility] BUN/creatinine ratioOrdered By: ky Faust on 05-16-2025 Urea nitrogen/Creatinine [Mass ratio] 24.6 mg/mg High 10-20 [facility] Basophil percentageOrdered B y: Yesika Faust on 05-16-2025 Basophils/100 WBC (Bld) 0.5 % 0-1 [facility] Carbon dioxide, total [Moles /volume] in Central venous bloodOrdered By: Yesika Faust on 05-16-2025 CO2 [Moles/Vol] 20.3 mmol/L Low 21.0-32.0 [facility] Chloride assayOrdered By: Tad Faust on 05-16-2025 Chloride [Moles/Vol] 103 mmol/L 98-108 [facility] Eosinophil percentageOrdered By: ky Faust on 05-16-2025 Eosinophils/100 WBC (Bld) 0.6 % 0-5 [facility] Erythrocyte distribution wid th ratioOrdered By: ky Faust on 05-16-2025 Erythrocyte distribution width (RBC) [Ratio] 13.1 % 11.6-14.6 [facility] Erythrocyte distribution wid th standard deviationOrdered By: ky Faust on 05-16-2025 Erythrocyte distribution width (RBC) [Ratio] 46.6 fl High 35.1-43.9 [facility] Glomerular filtration rate ( GFR) estimation/1.73 sq m using serum, plasma, or whole bOrdered By: Yesika Faust on 05-16-2025 GFR/1.73 sq M.predicted among non-blacks MDRD (S/P/Bld) [Vol rate/Area] 86 mL/min/{1.73_m2} >60 [facility] Comment on above: mL/min/1.73m2 CKD-EP I Creatinine Equation (2020) Hematocrit Auto (Bld) [Volum e fraction]Ordered By: Yesika Faust on 05-16-2025 Hematocrit (Bld) [Volume fraction] 41.8 % 37-47 [facility] Hemoglobin measurementOrdere d By: Yesika Faust on 05-16-2025 Hemoglobin (Bld) [Mass/Vol] 13.5 g/dL 12.0-15.0 [facility] Immature granulocytes/100 WB C Auto (Bld)Ordered By: enriquetakernersvillemacarena Faust on 05-16-2025 Immature granulocytes/100 WBC (Bld) 0.500 % 0.0-0.9 [facility] Comment on above: IG% - Immature Granu locytes (promyelocytes, myelocytes and metamyelocytes) > 1% indicates that a LEFT SHIFT is Present. MCV (mean corpuscular volume ) determinationOrdered By: Yesika Faust on 05-16-2025 MCV (RBC) [Entitic vol] 98.4 fL 81-99 [facility] Mean corpuscular hemoglobin (MCH) determinationOrdered By: Yesika Faust on 05-16-2025 MCH (RBC) [Entitic mass] 31.8 pg 27.0-32.0 [facility] Mean corpuscular hemoglobin concentration (MCHC) determinationOrdered By: Yesika aFust on 05-16-2025 MCHC (RBC) [Mass/Vol] 32.3 g/dL 32-36 [facility] Mean platelet volume determi nationOrdered By: Yesika Faust on 05-16-2025 Platelet mean volume (Bld) [Entitic vol] 11.1 fL 6.2-12.0 [facility] Monocyte percentageOrdered B y: Yesika Faust on 05-16-2025 Monocytes/100 WBC (Bld) 8.3 % 0-10 [facility] Neutrophil percentageOrdered By: Tadenriquetasaeidmacarena Butterfieldkathierafaela on 05-16-2025 Neutrophils/100 WBC (Bld) 78.4 % High 47-70 [facility] Nucleated red blood cell per centageOrdered By: Tadenriquetasaeidmacarena Faust on 05-16-2025 Nucleated RBC/100 WBC (Bld) [Ratio] 0 % 0-5 [facility] Platelet countOrdered By: Tad shymacarena Faust on 05-16-2025 Platelets (Bld) [#/Vol] 218 10*3/uL 150-450 [facility] Potassium measurement (mass/ volume)Ordered By: Yesika Faust on 05-16-2025 Potassium (Unsp spec) [Mass/Vol] 5.2 mmol/L High 3.3-5.1 [facility] Comment on above: Hemolysis present, R esults could be affected. RBC Auto (Bld) [#/Vol]Ordere d By: Yesika Faust on 05-16-2025 RBC (Bld) [#/Vol] 4.25 10*6/uL 4.2-5.4 [facility] Serum creatinine measurement (mass/volume)Ordered By: Yesika Faust on 05-16-2025 Creatinine [Mass/Vol] 0.64 mg/dL Low 0.70-1.20 [facility] Serum glucose measurement (m ass/volume)Ordered By: Yesika Faust on 05-16-2025 Glucose [Mass/Vol] 86 mg/dL 70-99 [facility] Serum or plasma calcium madi urement (mass/volume)Ordered By: Yesika Faust on 05-16-2025 Calcium [Mass/Vol] 9.4 mg/dL 7.6-11.0 [facility] Serum or plasma urea nitroge n measurement (mass/volume)Ordered By: Yesika Faust on 05-16-2025 Urea nitrogen [Mass/Vol] 16 mg/dL 4-19 [facility] Sodium levelOrdered By: Jed jiangannetterafaela Faust on 05-16-2025 Sodium [Moles/Vol] 135 mmol/L 133-145 [facility] White blood cell (WBC) count Ordered By: Yesika Faust on 05-16-2025 WBC (Bld) [#/Vol] 11.8 10*3/uL High 4.4-11.0 [facility] Absolute lymphocyte countOrd ered By: Yesika Faust on 04-14-2025 Lymphocytes Auto (Unsp spec) [#/Vol] 1.92 10*3/uL 0.83-4.51 [facility] Absolute neutrophil countOrd ered By: Yesika Faust on 04-14-2025 Neutrophils (Bld) [#/Vol] 5.3 10*3/uL 2.0-7.7 [facility] Anion gap in Serum or Plasma Ordered By: Yesika Faust on 04-14-2025 Anion gap [Moles/Vol] 11 mmol/L 5-15 [facility] Automated lymphocyte count a s percentage of total leukocytesOrdered By: Yesika Faust on 04-14-2025 Lymphocytes/100 WBC Auto (Unsp spec) 23.1 % 19-41 [facility] BUN/creatinine ratioOrdered By: Yesika Faust on 04-14-2025 Urea nitrogen/Creatinine [Mass ratio] 34.0 mg/mg High 10-20 [facility] Basophil percentageOrdered B y: Yesika Faust on 04-14-2025 Basophils/100 WBC (Bld) 0.6 % 0-1 [facility] Bilirubin directOrdered By: Yesika Faust on 04-14-2025 Bilirubin.direct [Mass/Vol] 0.09 mg/dL 0.00-0.30 [facility] Bilirubin, totalOrdered By: Yesika Faust on 04-14-2025 Bilirubin [Mass/Vol] 0.23 mg/dL 0.00-1.30 [facility] Carbon dioxide, total [Moles /volume] in Central venous bloodOrdered By: Yesiak Faust on 04-14-2025 CO2 [Moles/Vol] 27.5 mmol/L 21.0-32.0 [facility] Chloride assayOrdered By: Tad Faust on 04-14-2025 Chloride [Moles/Vol] 100 mmol/L 98-108 [facility] Eosinophil percentageOrdered By: Yesika Faust on 04-14-2025 Eosinophils/100 WBC (Bld) 3.1 % 0-5 [facility] Erythrocyte distribution wid th ratioOrdered By: Yesika Faust on 04-14-2025 Erythrocyte distribution width (RBC) [Ratio] 13.0 % 11.6-14.6 [facility] Erythrocyte distribution wid th standard deviationOrdered By: Yesika Faust on 04-14-2025 Erythrocyte distribution width (RBC) [Ratio] 46.0 fl High 35.1-43.9 [facility] Glomerular filtration rate ( GFR) estimation/1.73 sq m using serum, plasma, or whole bOrdered By: Yesika Faust on 04-14-2025 GFR/1.73 sq M.predicted among non-blacks MDRD (S/P/Bld) [Vol rate/Area] 87 mL/min/{1.73_m2} >60 [facility] Comment on above: mL/min/1.73m2 CKD-EP I Creatinine Equation (2020) Hematocrit Auto (Bld) [Volum e fraction]Ordered By: Yesika Faust on 04-14-2025 Hematocrit (Bld) [Volume fraction] 44.9 % 37-47 [facility] Hemoglobin measurementOrdere d By: Yesika Faust on 04-14-2025 Hemoglobin (Bld) [Mass/Vol] 14.4 g/dL 12.0-15.0 [facility] Immature granulocytes/100 WB C Auto (Bld)Ordered By: Yesika Faust on 04-14-2025 Immature granulocytes/100 WBC (Bld) 0.600 % 0.0-0.9 [facility] Comment on above: IG% - Immature Granu locytes (promyelocytes, myelocytes and metamyelocytes) > 1% indicates that a LEFT SHIFT is Present. Laboratory - Chemistry and C hemistry - challengeOrdered By: Yesika Faust on 04-14-2025 AST [Catalytic activity/Vol] 19 U/L <32 [facility] MCV (mean corpuscular volume ) determinationOrdered By: Yesika Faust on 04-14-2025 MCV (RBC) [Entitic vol] 96.8 fL 81-99 [facility] Mean corpuscular hemoglobin (MCH) determinationOrdered By: Yesika Faust on 04-14-2025 MCH (RBC) [Entitic mass] 31.0 pg 27.0-32.0 [facility] Mean corpuscular hemoglobin concentration (MCHC) determinationOrdered By: Yesika Faust on 04-14-2025 MCHC (RBC) [Mass/Vol] 32.1 g/dL 32-36 [facility] Mean platelet volume determi nationOrdered By: Yesika Faust on 04-14-2025 Platelet mean volume (Bld) [Entitic vol] 10.5 fL 6.2-12.0 [facility] Monocyte percentageOrdered B y: Yesika Faust on 04-14-2025 Monocytes/100 WBC (Bld) 9.3 % 0-10 [facility] Neutrophil percentageOrdered By: Yesika Faust on 04-14-2025 Neutrophils/100 WBC (Bld) 63.3 % 47-70 [facility] Nucleated red blood cell per centageOrdered By: Yesika Faust on 04-14-2025 Nucleated RBC/100 WBC (Bld) [Ratio] 0 % 0-5 [facility] Platelet countOrdered By: Tad Faust on 04-14-2025 Platelets (Bld) [#/Vol] 263 10*3/uL 150-450 [facility] Potassium measurement (mass/ volume)Ordered By: Yesika Faust on 04-14-2025 Potassium (Unsp spec) [Mass/Vol] 4.2 mmol/L 3.3-5.1 [facility] RBC Auto (Bld) [#/Vol]Ordere d By: Yesika Faust on 04-14-2025 RBC (Bld) [#/Vol] 4.64 10*6/uL 4.2-5.4 [facility] Serum creatinine measurement (mass/volume)Ordered By: Yesika Faust on 04-14-2025 Creatinine [Mass/Vol] 0.62 mg/dL Low 0.70-1.20 [facility] Serum globulin measurementOr dered By: Yesika Faust on 04-14-2025 Globulin (S) [Mass/Vol] 2.9 g/dL 2.2-4.2 [facility] Serum glucose measurement (m ass/volume)Ordered By: Yesika Faust on 04-14-2025 Glucose [Mass/Vol] 114 mg/dL High 70-99 [facility] Serum or plasma alanine vela otransferase (ALT) measurementOrdered By: Yesika Faust on 04-14-2025 ALT [Catalytic activity/Vol] 19 U/L <35 [facility] Serum or plasma albumin madi urement (mass/volume)Ordered By: Yesika Faust on 04-14-2025 Albumin [Mass/Vol] 4.2 g/dL 3.4-4.8 [facility] Serum or plasma alkaline mariaelena sphatase measurementOrdered By: Yesika Faust on 04-14-2025 ALP [Catalytic activity/Vol] 135 U/L High 35-104 [facility] Serum or plasma calcium madi urement (mass/volume)Ordered By: Yesika Faust on 04-14-2025 Calcium [Mass/Vol] 9.7 mg/dL 7.6-11.0 [facility] Serum or plasma urea nitroge n measurement (mass/volume)Ordered By: Yesika Faust on 04-14-2025 Urea nitrogen [Mass/Vol] 21 mg/dL High 4-19 [facility] Sodium levelOrdered By: Jed Faust on 04-14-2025 Sodium [Moles/Vol] 139 mmol/L 133-145 [facility] Total proteinOrdered By: Randall Faust on 04-14-2025 Protein [Mass/Vol] 7.1 g/dL 5.9-8.4 [facility] White blood cell (WBC) count Ordered By: Yesika Faust on 04-14-2025 WBC (Bld) [#/Vol] 8.3 10*3/uL 4.4-11.0 [facility] Absolute lymphocyte countOrd ered By: Yesika Faust on 03-14-2025 Lymphocytes Auto (Unsp spec) [#/Vol] 2.03 10*3/uL 0.83-4.51 [facility] Absolute neutrophil countOrd ered By: Yesika Faust on 03-14-2025 Neutrophils (Bld) [#/Vol] 3.4 10*3/uL 2.0-7.7 [facility] Anion gap in Serum or Plasma Ordered By: Yesika Faust on 03-14-2025 Anion gap [Moles/Vol] 9 mmol/L 5-15 [facility] Automated lymphocyte count a s percentage of total leukocytesOrdered By: Yesika Faust on 03-14-2025 Lymphocytes/100 WBC Auto (Unsp spec) 31.4 % 19-41 [facility] BUN/creatinine ratioOrdered By: Yesika Faust on 03-14-2025 Urea nitrogen/Creatinine [Mass ratio] 38.6 mg/mg High 10-20 [facility] Basophil percentageOrdered B y: Yesika Faust on 03-14-2025 Basophils/100 WBC (Bld) 0.5 % 0-1 [facility] Carbon dioxide, total [Moles /volume] in Central venous bloodOrdered By: Yesika Faust on 03-14-2025 CO2 [Moles/Vol] 28.1 mmol/L 21.0-32.0 [facility] Chloride assayOrdered By: Tad Faust on 03-14-2025 Chloride [Moles/Vol] 105 mmol/L 98-108 [facility] Eosinophil percentageOrdered By: Yesika Faust on 03-14-2025 Eosinophils/100 WBC (Bld) 5.6 % High 0-5 [facility] Erythrocyte distribution wid th ratioOrdered By: Yesika Faust on 03-14-2025 Erythrocyte distribution width (RBC) [Ratio] 12.8 % 11.6-14.6 [facility] Erythrocyte distribution wid th standard deviationOrdered By: Yesika Faust on 03-14-2025 Erythrocyte distribution width (RBC) [Ratio] 46.6 fl High 35.1-43.9 [facility] Glomerular filtration rate ( GFR) estimation/1.73 sq m using serum, plasma, or whole bOrdered By: Yesika Faust on 03-14-2025 GFR/1.73 sq M.predicted among non-blacks MDRD (S/P/Bld) [Vol rate/Area] 88 mL/min/{1.73_m2} >60 [facility] Comment on above: mL/min/1.73m2 CKD-EP I Creatinine Equation (2020) Hematocrit Auto (Bld) [Volum e fraction]Ordered By: enriquet[place]macarena Faust on 03-14-2025 Hematocrit (Bld) [Volume fraction] 39.8 % 37-47 [facility] Hemoglobin measurementOrdere d By: ky Faust on 03-14-2025 Hemoglobin (Bld) [Mass/Vol] 12.8 g/dL 12.0-15.0 [facility] Immature granulocytes/100 WB C Auto (Bld)Ordered By: Yesika Faust on 03-14-2025 Immature granulocytes/100 WBC (Bld) 0.600 % 0.0-0.9 [facility] Comment on above: IG% - Immature Granu locytes (promyelocytes, myelocytes and metamyelocytes) > 1% indicates that a LEFT SHIFT is Present. MCV (mean corpuscular volume ) determinationOrdered By: Yesika Faust on 03-14-2025 MCV (RBC) [Entitic vol] 99.0 fL 81-99 [facility] Mean corpuscular hemoglobin (MCH) determinationOrdered By: enri[place]arena Faust on 03-14-2025 MCH (RBC) [Entitic mass] 31.8 pg 27.0-32.0 [facility] Mean corpuscular hemoglobin concentration (MCHC) determinationOrdered By: enriquet[place]arena Faust on 03-14-2025 MCHC (RBC) [Mass/Vol] 32.2 g/dL 32-36 [facility] Mean platelet volume determi nationOrdered By: Yesika Faust on 03-14-2025 Platelet mean volume (Bld) [Entitic vol] 10.4 fL 6.2-12.0 [facility] Monocyte percentageOrdered B y: Jedsaeidmacarena Butterfieldkathierafaela on 03-14-2025 Monocytes/100 WBC (Bld) 10.2 % High 0-10 [facility] Neutrophil percentageOrdered By: Yesika Faust on 03-14-2025 Neutrophils/100 WBC (Bld) 51.7 % 47-70 [facility] Nucleated red blood cell per centageOrdered By: Yesika Faust on 03-14-2025 Nucleated RBC/100 WBC (Bld) [Ratio] 0 % 0-5 [facility] Platelet countOrdered By: Tad enriquetadenae Faust on 03-14-2025 Platelets (Bld) [#/Vol] 238 10*3/uL 150-450 [facility] Potassium measurement (mass/ volume)Ordered By: Yesika Faust on 03-14-2025 Potassium (Unsp spec) [Mass/Vol] 4.1 mmol/L 3.3-5.1 [facility] RBC Auto (Bld) [#/Vol]Ordere d By: Yesika Faust on 03-14-2025 RBC (Bld) [#/Vol] 4.02 10*6/uL Low 4.2-5.4 [facility] Serum creatinine measurement (mass/volume)Ordered By: Yesika Faust on 03-14-2025 Creatinine [Mass/Vol] 0.60 mg/dL Low 0.70-1.20 [facility] Serum glucose measurement (m ass/volume)Ordered By: Yesika Faust on 03-14-2025 Glucose [Mass/Vol] 82 mg/dL 70-99 [facility] Serum or plasma calcium madi urement (mass/volume)Ordered By: Yesika Faust on 03-14-2025 Calcium [Mass/Vol] 9.1 mg/dL 7.6-11.0 [facility] Serum or plasma urea nitroge n measurement (mass/volume)Ordered By: Yesika Faust on 03-14-2025 Urea nitrogen [Mass/Vol] 23 mg/dL High 4-19 [facility] Sodium levelOrdered By: Jed Faust on 03-14-2025 Sodium [Moles/Vol] 142 mmol/L 133-145 [facility] White blood cell (WBC) count Ordered By: Yesika Faust on 03-14-2025 WBC (Bld) [#/Vol] 6.5 10*3/uL 4.4-11.0 [facility] Bilirubin Test strip Ql (U)O rdered By: Yesika Faust on 03-06-2025 Bilirubin Ql (U) Negative Negative [facility] Ketones Test strip Ql (U)Ord ered By: Yesika Faust on 03-06-2025 Ketones Ql (U) 5 mg/dl High Negative [facility] Nitrite Test strip Ql (U)Ord ered By: Yesika Faust on 03-06-2025 Nitrite Ql (U) Negative Negative [facility] Protein Test strip Ql (U)Ord ered By: Yesiak Faust on 03-06-2025 Protein Ql (U) 100 mg/dl High Negative [facility] Urine clarityOrdered By: Randall Faust on 03-06-2025 Clarity (U) Turbid Clear [facility] Urine color determinationOrd ered By: Yesika Faust on 03-06-2025 Color (U) Yellow Yellow [facility] Urine cultureOrdered By: Randall Faust on 03-06-2025 Bacteria identified Cx Nom (U) Proteus mirabilis Abnormal [facility] Urine glucose detectionOrder ed By: Yesika Faust on 03-06-2025 Glucose Ql (U) Normal mg/dl Normal [facility] Urine leukocyte esterase det ection by dipstickOrdered By: Yesika Faust on 03-06-2025 Leukocyte esterase Test strip Ql (U) 500 /ul High Negative [facility] Urine pHOrdered By: Fernando Faust on 03-06-2025 pH (U) 6.0 [pH] 5.0 - 8.0 [facility] Urine specific gravity measu rementOrdered By: Yesika Faust on 03-06-2025 Specific gravity (U) [Rel density] 1.020 1.002-1.03 0 [facility] Urine urobilinogen measureme ntOrdered By: Yesika Faust on 03-06-2025 Urobilinogen Ql (U) Normal mg/dl Normal [facility] Serum or plasma valproate me asurement (mass/volume)Ordered By: Yesika Faust on 02-27-2025 Valproate [Mass/Vol] 15 ug/mL Low 50-100 [facility] Comment on above: Valproic Acid concen trations >100 ug/mL are potentially toxic. Absolute lymphocyte countOrd ered By: Yesika Faust on 02-13-2025 Lymphocytes Auto (Unsp spec) [#/Vol] 1.82 10*3/uL 0.83-4.51 [facility] Absolute neutrophil countOrd ered By: Yesika Faust on 02-13-2025 Neutrophils (Bld) [#/Vol] 3.5 10*3/uL 2.0-7.7 [facility] Anion gap in Serum or Plasma Ordered By: Yesika Faust on 02-13-2025 Anion gap [Moles/Vol] 10 mmol/L 5-15 [facility] Automated lymphocyte count a s percentage of total leukocytesOrdered By: Yesika Faust on 02-13-2025 Lymphocytes/100 WBC Auto (Unsp spec) 29.1 % 19-41 [facility] BUN/creatinine ratioOrdered By: Yesika Faust on 02-13-2025 Urea nitrogen/Creatinine [Mass ratio] 32.3 mg/mg High 10-20 [facility] Basophil percentageOrdered B y: Yesika Faust on 02-13-2025 Basophils/100 WBC (Bld) 0.6 % 0-1 [facility] Carbon dioxide, total [Moles /volume] in Central venous bloodOrdered By: Yesika Faust on 02-13-2025 CO2 [Moles/Vol] 28.1 mmol/L 21.0-32.0 [facility] Chloride assayOrdered By: Tad Faust on 02-13-2025 Chloride [Moles/Vol] 101 mmol/L 98-108 [facility] Eosinophil percentageOrdered By: Yesika Faust on 02-13-2025 Eosinophils/100 WBC (Bld) 3.7 % 0-5 [facility] Erythrocyte distribution wid th ratioOrdered By: Yesika Faust on 02-13-2025 Erythrocyte distribution width (RBC) [Ratio] 12.9 % 11.6-14.6 [facility] Erythrocyte distribution wid th standard deviationOrdered By: Yesika Faust on 02-13-2025 Erythrocyte distribution width (RBC) [Ratio] 46.5 fl High 35.1-43.9 [facility] Glomerular filtration rate ( GFR) estimation/1.73 sq m using serum, plasma, or whole bOrdered By: Yesika Faust on 02-13-2025 GFR/1.73 sq M.predicted among non-blacks MDRD (S/P/Bld) [Vol rate/Area] 87 mL/min/{1.73_m2} >60 [facility] Comment on above: mL/min/1.73m2 CKD-EP I Creatinine Equation (2020) Hematocrit Auto (Bld) [Volum e fraction]Ordered By: Yesika Faust on 02-13-2025 Hematocrit (Bld) [Volume fraction] 43.2 % 37-47 [facility] Hemoglobin measurementOrdere d By: Yesika Faust on 02-13-2025 Hemoglobin (Bld) [Mass/Vol] 13.9 g/dL 12.0-15.0 [facility] Immature granulocytes/100 WB C Auto (Bld)Ordered By: Yesika Faust on 02-13-2025 Immature granulocytes/100 WBC (Bld) 0.300 % 0.0-0.9 [facility] Comment on above: IG% - Immature Granu locytes (promyelocytes, myelocytes and metamyelocytes) > 1% indicates that a LEFT SHIFT is Present. MCV (mean corpuscular volume ) determinationOrdered By: Yesika Faust on 02-13-2025 MCV (RBC) [Entitic vol] 97.7 fL 81-99 [facility] Mean corpuscular hemoglobin (MCH) determinationOrdered By: Yesika Faust on 02-13-2025 MCH (RBC) [Entitic mass] 31.4 pg 27.0-32.0 [facility] Mean corpuscular hemoglobin concentration (MCHC) determinationOrdered By: Yesika Faust on 02-13-2025 MCHC (RBC) [Mass/Vol] 32.2 g/dL 32-36 [facility] Mean platelet volume determi nationOrdered By: Yesika Faust on 02-13-2025 Platelet mean volume (Bld) [Entitic vol] 10.3 fL 6.2-12.0 [facility] Monocyte percentageOrdered B y: Yesika Faust on 02-13-2025 Monocytes/100 WBC (Bld) 10.7 % High 0-10 [facility] Neutrophil percentageOrdered By: Yesika Faust on 02-13-2025 Neutrophils/100 WBC (Bld) 55.6 % 47-70 [facility] Nucleated red blood cell per centageOrdered By: Yesika Faust on 02-13-2025 Nucleated RBC/100 WBC (Bld) [Ratio] 0 % 0-5 [facility] Platelet countOrdered By: Tad Faust on 02-13-2025 Platelets (Bld) [#/Vol] 231 10*3/uL 150-450 [facility] Potassium measurement (mass/ volume)Ordered By: Yesika Faust on 02-13-2025 Potassium (Unsp spec) [Mass/Vol] 4.0 mmol/L 3.3-5.1 [facility] RBC Auto (Bld) [#/Vol]Ordere d By: Yesika Faust on 02-13-2025 RBC (Bld) [#/Vol] 4.42 10*6/uL 4.2-5.4 [facility] Serum creatinine measurement (mass/volume)Ordered By: Yesika Faust on 02-13-2025 Creatinine [Mass/Vol] 0.62 mg/dL Low 0.70-1.20 [facility] Serum glucose measurement (m ass/volume)Ordered By: Yesika Faust on 02-13-2025 Glucose [Mass/Vol] 88 mg/dL 70-99 [facility] Serum or plasma calcium madi urement (mass/volume)Ordered By: Yesika Faust on 02-13-2025 Calcium [Mass/Vol] 9.3 mg/dL 7.6-11.0 [facility] Serum or plasma urea nitroge n measurement (mass/volume)Ordered By: Yesika Faust on 02-13-2025 Urea nitrogen [Mass/Vol] 20 mg/dL High 4-19 [facility] Sodium levelOrdered By: Jed jiangbert Christianne on 02-13-2025 Sodium [Moles/Vol] 140 mmol/L 133-145 [facility] White blood cell (WBC) count Ordered By: Yesika Faust on 02-13-2025 WBC (Bld) [#/Vol] 6.3 10*3/uL 4.4-11.0 [facility] Potassium measurement (mass/ volume)Ordered By: Zeina Balbuena on 01-23-2025 Potassium (Unsp spec) [Mass/Vol] 3.8 mmol/L 3.3-5.1 [facility] Absolute lymphocyte countOrd ered By: Yesika Faust on 01-18-2025 Lymphocytes Auto (Unsp spec) [#/Vol] 1.51 10*3/uL 0.83-4.51 [facility] Absolute neutrophil countOrd ered By: Yesika Faust on 01-18-2025 Neutrophils (Bld) [#/Vol] 3.9 10*3/uL 2.0-7.7 [facility] Anion gap in Serum or Plasma Ordered By: Yesika Faust on 01-18-2025 Anion gap [Moles/Vol] 12 mmol/L 5-15 [facility] Automated lymphocyte count a s percentage of total leukocytesOrdered By: Yesika Faust on 01-18-2025 Lymphocytes/100 WBC Auto (Unsp spec) 23.4 % 19-41 [facility] BUN/creatinine ratioOrdered By: Yesika Faust on 01-18-2025 Urea nitrogen/Creatinine [Mass ratio] 36.2 mg/mg High 10-20 [facility] Basophil percentageOrdered B y: Yesika Faust on 01-18-2025 Basophils/100 WBC (Bld) 0.6 % 0-1 [facility] Bilirubin directOrdered By: Yesika Faust on 01-18-2025 Bilirubin.direct [Mass/Vol] 0.11 mg/dL 0.00-0.30 [facility] Bilirubin, totalOrdered By: Yesika Faust on 01-18-2025 Bilirubin [Mass/Vol] 0.25 mg/dL 0.00-1.30 [facility] Carbon dioxide, total [Moles /volume] in Central venous bloodOrdered By: Yesika Faust on 01-18-2025 CO2 [Moles/Vol] 22.7 mmol/L 21.0-32.0 [facility] Chloride assayOrdered By: Tad Faust on 01-18-2025 Chloride [Moles/Vol] 107 mmol/L 98-108 [facility] Eosinophil percentageOrdered By: Yesika Faust on 01-18-2025 Eosinophils/100 WBC (Bld) 6.1 % High 0-5 [facility] Erythrocyte distribution wid th ratioOrdered By: Yesika Faust on 01-18-2025 Erythrocyte distribution width (RBC) [Ratio] 13.4 % 11.6-14.6 [facility] Erythrocyte distribution wid th standard deviationOrdered By: Yesika Faust on 01-18-2025 Erythrocyte distribution width (RBC) [Ratio] 46.6 fl High 35.1-43.9 [facility] Glomerular filtration rate ( GFR) estimation/1.73 sq m using serum, plasma, or whole bOrdered By: Yesika Faust on 01-18-2025 GFR/1.73 sq M.predicted among non-blacks MDRD (S/P/Bld) [Vol rate/Area] 80 mL/min/{1.73_m2} >60 [facility] Comment on above: mL/min/1.73m2 CKD-EP I Creatinine Equation (2020) Hematocrit Auto (Bld) [Volum e fraction]Ordered By: Yesika Faust on 01-18-2025 Hematocrit (Bld) [Volume fraction] 42.1 % 37-47 [facility] Hemoglobin measurementOrdere d By: Yesika Faust on 01-18-2025 Hemoglobin (Bld) [Mass/Vol] 14.2 g/dL 12.0-15.0 [facility] Immature granulocytes/100 WB C Auto (Bld)Ordered By: Yesika Faust on 01-18-2025 Immature granulocytes/100 WBC (Bld) 0.500 % 0.0-0.9 [facility] Comment on above: IG% - Immature Granu locytes (promyelocytes, myelocytes and metamyelocytes) > 1% indicates that a LEFT SHIFT is Present. Laboratory - Chemistry and C hemistry - challengeOrdered By: Yesika Faust on 01-18-2025 AST [Catalytic activity/Vol] 19 U/L <32 [facility] MCV (mean corpuscular volume ) determinationOrdered By: Yesika Faust on 01-18-2025 MCV (RBC) [Entitic vol] 94.4 fL 81-99 [facility] Mean corpuscular hemoglobin (MCH) determinationOrdered By: enriquet[place]macarena Faust on 01-18-2025 MCH (RBC) [Entitic mass] 31.8 pg 27.0-32.0 [facility] Mean corpuscular hemoglobin concentration (MCHC) determinationOrdered By: Yesika Faust on 01-18-2025 MCHC (RBC) [Mass/Vol] 33.7 g/dL 32-36 [facility] Mean platelet volume determi nationOrdered By: Yesika Faust on 01-18-2025 Platelet mean volume (Bld) [Entitic vol] 11.6 fL 6.2-12.0 [facility] Monocyte percentageOrdered B y: Yesika Faust on 01-18-2025 Monocytes/100 WBC (Bld) 9.3 % 0-10 [facility] Neutrophil percentageOrdered By: Yesika Faust on 01-18-2025 Neutrophils/100 WBC (Bld) 60.1 % 47-70 [facility] Nucleated red blood cell per centageOrdered By: Yesika Faust on 01-18-2025 Nucleated RBC/100 WBC (Bld) [Ratio] 0 % 0-5 [facility] Platelet countOrdered By: Tad Faust on 01-18-2025 Platelet count TNP [facility] Comment on above: Test not performedPl [...] ADEQ [facility] Potassium measurement (mass/ volume)Ordered By: Yesika Faust on 01-18-2025 Potassium (Unsp spec) [Mass/Vol] 5.6 mmol/L High 3.3-5.1 [facility] RBC Auto (Bld) [#/Vol]Ordere d By: Yesika Faust on 01-18-2025 RBC (Bld) [#/Vol] 4.46 10*6/uL 4.2-5.4 [facility] Serum creatinine measurement (mass/volume)Ordered By: Yesika Faust on 01-18-2025 Creatinine [Mass/Vol] 0.73 mg/dL 0.70-1.20 [facility] Serum globulin measurementOr dered By: Yesika Faust on 01-18-2025 Globulin (S) [Mass/Vol] 2.5 g/dL 2.2-4.2 [facility] Serum glucose measurement (m ass/volume)Ordered By: Yesika Faust on 01-18-2025 Glucose [Mass/Vol] 84 mg/dL 70-99 [facility] Serum or plasma alanine vela otransferase (ALT) measurementOrdered By: Yesika Faust on 01-18-2025 ALT [Catalytic activity/Vol] 14 U/L <35 [facility] Serum or plasma albumin madi urement (mass/volume)Ordered By: Yesika Faust on 01-18-2025 Albumin [Mass/Vol] 3.7 g/dL 3.4-4.8 [facility] Serum or plasma alkaline mariaelena sphatase measurementOrdered By: Yesika Faust on 01-18-2025 ALP [Catalytic activity/Vol] 106 U/L High 35-104 [facility] Serum or plasma calcium madi urement (mass/volume)Ordered By: Yesika Faust on 01-18-2025 Calcium [Mass/Vol] 9.1 mg/dL 7.6-11.0 [facility] Serum or plasma urea nitroge n measurement (mass/volume)Ordered By: Yesika Faust on 01-18-2025 Urea nitrogen [Mass/Vol] 27 mg/dL High 4-19 [facility] Sodium levelOrdered By: Jed Faust on 01-18-2025 Sodium [Moles/Vol] 141 mmol/L 133-145 [facility] Total proteinOrdered By: Randall Faust on 01-18-2025 Protein [Mass/Vol] 6.1 g/dL 5.9-8.4 [facility] White blood cell (WBC) count Ordered By: Yesika Faust on 01-18-2025 WBC (Bld) [#/Vol] 6.4 10*3/uL 4.4-11.0 [facility] Bilirubin Test strip Ql (U)O rdered By: Yesika Faust on 01-14-2025 Bilirubin Ql (U) Negative Negative [facility] Ketones Test strip Ql (U)Ord ered By: Yesika Faust on 01-14-2025 Ketones Ql (U) Negative Negative [facility] Nitrite Test strip Ql (U)Ord ered By: Yesika Faust on 01-14-2025 Nitrite Ql (U) Negative Negative [facility] Protein Test strip Ql (U)Ord ered By: Yesika Faust on 01-14-2025 Protein Ql (U) 30 mg/dl High Negative [facility] Urine clarityOrdered By: Randall Faust on 01-14-2025 Clarity (U) Cloudy Clear [facility] Urine color determinationOrd ered By: Yesika Faust on 01-14-2025 Color (U) Yellow Yellow [facility] Urine cultureOrdered By: Randall Faust on 01-14-2025 Bacteria identified Cx Nom (U) Proteus mirabilis Abnormal [facility] Urine glucose detectionOrder ed By: Yesika Faust on 01-14-2025 Glucose Ql (U) Normal mg/dl Normal [facility] Urine leukocyte esterase det ection by dipstickOrdered By: Yesika Faust on 01-14-2025 Leukocyte esterase Test strip Ql (U) 500 /ul High Negative [facility] Urine pHOrdered By: Fernando Faust on 01-14-2025 pH (U) 7.0 [pH] 5.0 - 8.0 [facility] Urine specific gravity measu rementOrdered By: Yesika Faust on 01-14-2025 Specific gravity (U) [Rel density] 1.010 1.002-1.03 0 [facility] Urine urobilinogen measureme ntOrdered By: Yesika Faust on 01-14-2025 Urobilinogen Ql (U) Normal mg/dl Normal [facility] Absolute lymphocyte countOrd ered By: Yesika Faust on 01-12-2025 Lymphocytes Auto (Unsp spec) [#/Vol] 1.66 10*3/uL 0.83-4.51 [facility] Absolute neutrophil countOrd ered By: Yesika Faust on 01-12-2025 Neutrophils (Bld) [#/Vol] 3.2 10*3/uL 2.0-7.7 [facility] Anion gap in Serum or Plasma Ordered By: Yesika Faust on 01-12-2025 Anion gap [Moles/Vol] 13 mmol/L 5-15 [facility] Automated lymphocyte count a s percentage of total leukocytesOrdered By: Yesika Faust on 01-12-2025 Lymphocytes/100 WBC Auto (Unsp spec) 27.6 % 19-41 [facility] BUN/creatinine ratioOrdered By: Yesika Faust on 01-12-2025 Urea nitrogen/Creatinine [Mass ratio] 36.9 mg/mg High 10-20 [facility] Basophil percentageOrdered B y: Yesika Faust on 01-12-2025 Basophils/100 WBC (Bld) 0.8 % 0-1 [facility] Bilirubin directOrdered By: Yesika Faust on 01-12-2025 Bilirubin.direct [Mass/Vol] 0.11 mg/dL 0.00-0.30 [facility] Bilirubin, totalOrdered By: Yesika Faust on 01-12-2025 Bilirubin [Mass/Vol] 0.24 mg/dL 0.00-1.30 [facility] Carbon dioxide, total [Moles /volume] in Central venous bloodOrdered By: Yesika Faust on 01-12-2025 CO2 [Moles/Vol] 22.3 mmol/L 21.0-32.0 [facility] Chloride assayOrdered By: Tad Faust on 01-12-2025 Chloride [Moles/Vol] 106 mmol/L 98-108 [facility] Eosinophil percentageOrdered By: Yesika Faust on 01-12-2025 Eosinophils/100 WBC (Bld) 7.2 % High 0-5 [facility] Erythrocyte distribution wid th ratioOrdered By: Yesika Faust on 01-12-2025 Erythrocyte distribution width (RBC) [Ratio] 13.5 % 11.6-14.6 [facility] Erythrocyte distribution wid th standard deviationOrdered By: Yesika Faust on 01-12-2025 Erythrocyte distribution width (RBC) [Ratio] 47.9 fl High 35.1-43.9 [facility] Glomerular filtration rate ( GFR) estimation/1.73 sq m using serum, plasma, or whole bOrdered By: Yesika Fauts on 01-12-2025 GFR/1.73 sq M.predicted among non-blacks MDRD (S/P/Bld) [Vol rate/Area] 84 mL/min/{1.73_m2} >60 [facility] Comment on above: mL/min/1.73m2 CKD-EP I Creatinine Equation (2020) Hematocrit Auto (Bld) [Volum e fraction]Ordered By: Yesika Faust on 01-12-2025 Hematocrit (Bld) [Volume fraction] 40.4 % 37-47 [facility] Hemoglobin measurementOrdere d By: Yesika Faust on 01-12-2025 Hemoglobin (Bld) [Mass/Vol] 13.3 g/dL 12.0-15.0 [facility] Immature granulocytes/100 WB C Auto (Bld)Ordered By: Yesika Faust on 01-12-2025 Immature granulocytes/100 WBC (Bld) 0.300 % 0.0-0.9 [facility] Comment on above: IG% - Immature Granu locytes (promyelocytes, myelocytes and metamyelocytes) > 1% indicates that a LEFT SHIFT is Present. Laboratory - Chemistry and C hemistry - challengeOrdered By: Yesika Faust on 01-12-2025 AST [Catalytic activity/Vol] 16 U/L <32 [facility] MCV (mean corpuscular volume ) determinationOrdered By: Yesika Faust on 01-12-2025 MCV (RBC) [Entitic vol] 97.1 fL 81-99 [facility] Mean corpuscular hemoglobin (MCH) determinationOrdered By: enriquetakernersvillemacarena Faust on 01-12-2025 MCH (RBC) [Entitic mass] 32.0 pg 27.0-32.0 [facility] Mean corpuscular hemoglobin concentration (MCHC) determinationOrdered By: Yesika Faust on 01-12-2025 MCHC (RBC) [Mass/Vol] 32.9 g/dL 32-36 [facility] Mean platelet volume determi nationOrdered By: Yesika Faust on 01-12-2025 Platelet mean volume (Bld) [Entitic vol] 10.7 fL 6.2-12.0 [facility] Monocyte percentageOrdered B y: Yesika Faust on 01-12-2025 Monocytes/100 WBC (Bld) 10.8 % High 0-10 [facility] Neutrophil percentageOrdered By: Yesika Faust on 01-12-2025 Neutrophils/100 WBC (Bld) 53.3 % 47-70 [facility] Nucleated red blood cell per centageOrdered By: Yesika Faust on 01-12-2025 Nucleated RBC/100 WBC (Bld) [Ratio] 0 % 0-5 [facility] Platelet countOrdered By: Tad Faust on 01-12-2025 Platelets (Bld) [#/Vol] 233 10*3/uL 150-450 [facility] Potassium measurement (mass/ volume)Ordered By: Yesika Faust on 01-12-2025 Potassium (Unsp spec) [Mass/Vol] 4.4 mmol/L 3.3-5.1 [facility] RBC Auto (Bld) [#/Vol]Ordere d By: Yesika Faust on 01-12-2025 RBC (Bld) [#/Vol] 4.16 10*6/uL Low 4.2-5.4 [facility] Serum creatinine measurement (mass/volume)Ordered By: Yesika Faust on 01-12-2025 Creatinine [Mass/Vol] 0.71 mg/dL 0.70-1.20 [facility] Serum globulin measurementOr dered By: Yesika Faust on 01-12-2025 Globulin (S) [Mass/Vol] 2.2 g/dL 2.2-4.2 [facility] Serum glucose measurement (m ass/volume)Ordered By: Yesika Faust on 01-12-2025 Glucose [Mass/Vol] 95 mg/dL 70-99 [facility] Serum or plasma alanine vela otransferase (ALT) measurementOrdered By: Yesika Fasut on 01-12-2025 ALT [Catalytic activity/Vol] 12 U/L <35 [facility] Serum or plasma albumin madi urement (mass/volume)Ordered By: Yesika Faust on 01-12-2025 Albumin [Mass/Vol] 3.5 g/dL 3.4-4.8 [facility] Serum or plasma alkaline mariaelena sphatase measurementOrdered By: Yesika Faust on 01-12-2025 ALP [Catalytic activity/Vol] 110 U/L High 35-104 [facility] Serum or plasma calcium madi urement (mass/volume)Ordered By: Yesika Faust on 01-12-2025 Calcium [Mass/Vol] 9.0 mg/dL 7.6-11.0 [facility] Serum or plasma urea nitroge n measurement (mass/volume)Ordered By: Yesika Faust on 01-12-2025 Urea nitrogen [Mass/Vol] 26 mg/dL High 4-19 [facility] Sodium levelOrdered By: Jed Faust on 01-12-2025 Sodium [Moles/Vol] 142 mmol/L 133-145 [facility] Total proteinOrdered By: Randall Faust on 01-12-2025 Protein [Mass/Vol] 5.7 g/dL Low 5.9-8.4 [facility] White blood cell (WBC) count Ordered By: Yesika Faust on 01-12-2025 WBC (Bld) [#/Vol] 6.0 10*3/uL 4.4-11.0 [facility] Absolute lymphocyte countOrd ered By: Yesika Faust on 12-14-2024 Lymphocytes Auto (Unsp spec) [#/Vol] 2.70 10*3/uL 0.83-4.51 [facility] Absolute neutrophil countOrd ered By: Yesika Faust on 12-14-2024 Neutrophils (Bld) [#/Vol] 4.2 10*3/uL 2.0-7.7 [facility] Anion gap in Serum or Plasma Ordered By: Yesika Faust on 12-14-2024 Anion gap [Moles/Vol] 12 mmol/L 5-15 [facility] Automated lymphocyte count a s percentage of total leukocytesOrdered By: Yesika Faust on 12-14-2024 Lymphocytes/100 WBC Auto (Unsp spec) 33.0 % 19-41 [facility] BUN/creatinine ratioOrdered By: Yesika Faust on 12-14-2024 Urea nitrogen/Creatinine [Mass ratio] 30.0 mg/mg High 10-20 [facility] Basophil percentageOrdered B y: Yesika Faust on 12-14-2024 Basophils/100 WBC (Bld) 1.0 % 0-1 [facility] Carbon dioxide, total [Moles /volume] in Central venous bloodOrdered By: Yesika Faust on 12-14-2024 CO2 [Moles/Vol] 25.1 mmol/L 21.0-32.0 [facility] Chloride assayOrdered By: Tad Faust on 12-14-2024 Chloride [Moles/Vol] 103 mmol/L 98-108 [facility] Eosinophil percentageOrdered By: Yesika Faust on 12-14-2024 Eosinophils/100 WBC (Bld) 4.4 % 0-5 [facility] Erythrocyte distribution wid th (RBC) [Ratio]Ordered By: Yesika Faust on 12-14-2024 Erythrocyte distribution width (RBC) [Entitic vol] 45.8 fL High 35.1-43.9 [facility] Erythrocyte distribution wid th ratioOrdered By: Jedkernersvillemacarena Faust on 12-14-2024 Erythrocyte distribution width (RBC) [Ratio] 13.2 % 11.6-14.6 [facility] Erythrocyte distribution wid th standard deviationOrdered By: Yesika Faust on 12-14-2024 Erythrocyte distribution width (RBC) [Ratio] 45.8 fl High 35.1-43.9 [facility] GFR/1.73 sq M.predicted giorgio g non-blacks MDRD (S/P/Bld) [Vol rate/Area]Ordered By: Yesika Faust on 12-14-2024 Estimated GFR (MDRD) Non-Af Amer 76 >60 [facility] Comment on above: mL/min/1.73m2 CKD-EP I Creatinine Equation (2020) Glomerular filtration rate ( GFR) estimation/1.73 sq m using serum, plasma, or whole bOrdered By: Yesika Faust on 12-14-2024 GFR/1.73 sq M.predicted among non-blacks MDRD (S/P/Bld) [Vol rate/Area] 76 mL/min/{1.73_m2} >60 [facility] Comment on above: mL/min/1.73m2 CKD-EP I Creatinine Equation (2020) Hematocrit Auto (Bld) [Volum e fraction]Ordered By: Yesika Faust on 12-14-2024 Hematocrit (Bld) [Volume fraction] 46.6 % 37-47 [facility] Hemoglobin measurementOrdere d By: Yesika Faust on 12-14-2024 Hemoglobin (Bld) [Mass/Vol] 15.2 g/dL High 12.0-15.0 [facility] Immature granulocytes/100 WB C Auto (Bld)Ordered By: Yesika Faust on 12-14-2024 Immature granulocytes/100 WBC (Bld) 0.500 % 0.0-0.9 [facility] Comment on above: IG% - Immature Granu locytes (promyelocytes, myelocytes and metamyelocytes) > 1% indicates that a LEFT SHIFT is Present. Lymphocytes Auto (Unsp spec) [#/Vol]Ordered By: Yesika Faust on 12-14-2024 Lymphocytes (Bld) [#/Vol] 2.70 10*3/uL 0.83-4.51 [facility] Lymphocytes/100 WBC Auto (Un sp spec)Ordered By: Yesika Faust on 12-14-2024 Lymphocytes/100 WBC (Bld) 33.0 % 19-41 [facility] MCV (mean corpuscular volume ) determinationOrdered By: Yesika Faust on 12-14-2024 MCV (RBC) [Entitic vol] 94.7 fL 81-99 [facility] Mean corpuscular hemoglobin (MCH) determinationOrdered By: Yesika Faust on 12-14-2024 MCH (RBC) [Entitic mass] 30.9 pg 27.0-32.0 [facility] Mean corpuscular hemoglobin concentration (MCHC) determinationOrdered By: Yesika Faust on 12-14-2024 MCHC (RBC) [Mass/Vol] 32.6 g/dL 32-36 [facility] Mean platelet volume determi nationOrdered By: Yesika Faust on 12-14-2024 Platelet mean volume (Bld) [Entitic vol] 10.6 fL 6.2-12.0 [facility] Monocyte percentageOrdered B y: Yesika Faust on 12-14-2024 Monocytes/100 WBC (Bld) 9.7 % 0-10 [facility] Neutrophil percentageOrdered By: Yesika Faust on 12-14-2024 Neutrophils/100 WBC (Bld) 51.4 % 47-70 [facility] Nucleated red blood cell per centageOrdered By: Yesika Faust on 12-14-2024 Nucleated RBC/100 WBC (Bld) [Ratio] 0 % 0-5 [facility] Platelet countOrdered By: Tad Faust on 12-14-2024 Platelets (Bld) [#/Vol] 268 10*3/uL 150-450 [facility] Potassium (Unsp spec) [Mass/ Vol]Ordered By: Yesika Faust on 12-14-2024 Potassium [Moles/Vol] 4.3 mmol/L 3.3-5.1 [facility] Potassium measurement (mass/ volume)Ordered By: Yesika Faust on 12-14-2024 Potassium (Unsp spec) [Mass/Vol] 4.3 mmol/L 3.3-5.1 [facility] RBC Auto (Bld) [#/Vol]Ordere d By: Yesika Faust on 12-14-2024 RBC (Bld) [#/Vol] 4.92 10*6/uL 4.2-5.4 [facility] Serum creatinine measurement (mass/volume)Ordered By: Yesika Faust on 12-14-2024 Creatinine [Mass/Vol] 0.76 mg/dL 0.70-1.20 [facility] Serum glucose measurement (m ass/volume)Ordered By: Yesika Faust on 12-14-2024 Glucose [Mass/Vol] 105 mg/dL High 70-99 [facility] Serum or plasma calcium madi urement (mass/volume)Ordered By: Yesika Faust on 12-14-2024 Calcium [Mass/Vol] 9.7 mg/dL 7.6-11.0 [facility] Serum or plasma urea nitroge n measurement (mass/volume)Ordered By: Yesika Faust on 12-14-2024 Urea nitrogen [Mass/Vol] 23 mg/dL High 4-19 [facility] Sodium levelOrdered By: Jed Christiansonrafaela on 12-14-2024 Sodium [Moles/Vol] 141 mmol/L 133-145 [facility] White blood cell (WBC) count Ordered By: Tadenriquetadenae Scoutkathierafaela on 12-14-2024 WBC (Bld) [#/Vol] 8.2 10*3/uL 4.4-11.0 [facility] Absolute lymphocyte countOrd ered By: Yesika Scoutkathierafaela on 11-14-2024 Lymphocytes Auto (Unsp spec) [#/Vol] 2.15 10*3/uL 0.83-4.51 [facility] Absolute neutrophil countOrd ered By: Tadenriquetasaeidmacarena Butterfieldkathierafaela on 11-14-2024 Neutrophils (Bld) [#/Vol] 4.8 10*3/uL 2.0-7.7 [facility] Automated lymphocyte count a s percentage of total leukocytesOrdered By: Yesika Faust on 11-14-2024 Lymphocytes/100 WBC Auto (Unsp spec) 25.7 % 19-41 [facility] BUN/creatinine ratioOrdered By: Yesika Butterfieldkathierafaela on 11-14-2024 Urea nitrogen/Creatinine [Mass ratio] 36.8 mg/mg High 10-20 [facility] Basophil percentageOrdered B y: Tadenriquetasaeidmacarena Butterfieldkathierafaela on 11-14-2024 Basophils/100 WBC (Bld) 1.0 % 0-1 [facility] Carbon dioxide measurementOr dered By: Yesika Butterfieldkathierafaela on 11-14-2024 CO2 [Moles/Vol] 27.6 mmol/L 22.0-29.0 [facility] Chloride measurementOrdered By: Yesika Faust on 11-14-2024 Chloride [Moles/Vol] 101 mmol/L 96-108 [facility] Eosinophil percentageOrdered By: Tadky Butterfieldkathierafaela on 11-14-2024 Eosinophils/100 WBC (Bld) 7.9 % High 0-5 [facility] Erythrocyte distribution wid th (RBC) [Ratio]Ordered By: Yesika Butterfieldkathierafaela on 11-14-2024 Erythrocyte distribution width (RBC) [Entitic vol] 46.1 fL High 35.1-43.9 [facility] Erythrocyte distribution wid th ratioOrdered By: Yesika Faust on 11-14-2024 Erythrocyte distribution width (RBC) [Ratio] 12.9 % 11.6-14.6 [facility] Erythrocyte distribution wid th standard deviationOrdered By: Yesika Faust on 11-14-2024 Erythrocyte distribution width (RBC) [Ratio] 46.1 fl High 35.1-43.9 [facility] GFR/1.73 sq M.predicted giorgio g non-blacks MDRD (S/P/Bld) [Vol rate/Area]Ordered By: Yesika Faust on 11-14-2024 Estimated GFR (MDRD) Non-Af Amer 86 >60 [facility] Comment on above: mL/min/1.73m2 CKD-EP I Creatinine Equation (2020) Glomerular filtration rate ( GFR) estimation/1.73 sq m using serum, plasma, or whole bOrdered By: Yesika Faust on 11-14-2024 GFR/1.73 sq M.predicted among non-blacks MDRD (S/P/Bld) [Vol rate/Area] 86 mL/min/{1.73_m2} >60 [facility] Comment on above: mL/min/1.73m2 CKD-EP I Creatinine Equation (2020) Hematocrit Auto (Bld) [Volum e fraction]Ordered By: Yesika Faust on 11-14-2024 Hematocrit (Bld) [Volume fraction] 46.9 % 37-47 [facility] Hemoglobin measurementOrdere d By: Yesika Faust on 11-14-2024 Hemoglobin (Bld) [Mass/Vol] 15.0 g/dL 12.0-15.0 [facility] Immature granulocytes/100 WB C Auto (Bld)Ordered By: Yesika Faust on 11-14-2024 Immature granulocytes/100 WBC (Bld) 0.500 % 0.0-0.9 [facility] Comment on above: IG% - Immature Granu locytes (promyelocytes, myelocytes and metamyelocytes) > 1% indicates that a LEFT SHIFT is Present. Lymphocytes Auto (Unsp spec) [#/Vol]Ordered By: Yesika aFust on 11-14-2024 Lymphocytes (Bld) [#/Vol] 2.15 10*3/uL 0.83-4.51 [facility] Lymphocytes/100 WBC Auto (Un sp spec)Ordered By: Jedsaeidmacarena Butterfieldkathierafaela on 11-14-2024 Lymphocytes/100 WBC (Bld) 25.7 % 19-41 [facility] MCV (mean corpuscular volume ) determinationOrdered By: Yesika Faust on 11-14-2024 MCV (RBC) [Entitic vol] 96.9 fL 81-99 [facility] Mean corpuscular hemoglobin (MCH) determinationOrdered By: Yesika Faust on 11-14-2024 MCH (RBC) [Entitic mass] 31.0 pg 27.0-32.0 [facility] Mean corpuscular hemoglobin concentration (MCHC) determinationOrdered By: Yesika Faust on 11-14-2024 MCHC (RBC) [Mass/Vol] 32.0 g/dL 32-36 [facility] Mean platelet volume determi nationOrdered By: Yesika Faust on 11-14-2024 Platelet mean volume (Bld) [Entitic vol] 10.4 fL 6.2-12.0 [facility] Monocyte percentageOrdered B y: Yesika Faust on 11-14-2024 Monocytes/100 WBC (Bld) 7.9 % 0-10 [facility] Neutrophil percentageOrdered By: Yesika Faust on 11-14-2024 Neutrophils/100 WBC (Bld) 57.0 % 47-70 [facility] Nucleated red blood cell per centageOrdered By: Yesika Faust on 11-14-2024 Nucleated RBC/100 WBC (Bld) [Ratio] 0 % 0-5 [facility] Platelet countOrdered By: Tad enriquetadenae Faust on 11-14-2024 Platelets (Bld) [#/Vol] 269 10*3/uL 150-450 [facility] RBC Auto (Bld) [#/Vol]Ordere d By: Yesika Faust on 11-14-2024 RBC (Bld) [#/Vol] 4.84 10*6/uL 4.2-5.4 [facility] Serum creatinine measurement (mass/volume)Ordered By: Yesika Faust on 11-14-2024 Creatinine [Mass/Vol] 0.65 mg/dL Low 0.70-1.20 [facility] Serum glucose measurement (m ass/volume)Ordered By: Yesika Faust on 11-14-2024 Glucose [Mass/Vol] 97 mg/dL 70-99 [facility] Serum or plasma anion gap de termination (moles/volume)Ordered By: Yesika Faust on 11-14-2024 Anion gap [Moles/Vol] 12 mmol/L 5-15 [facility] Serum or plasma calcium madi urement (mass/volume)Ordered By: Yesika Faust on 11-14-2024 Calcium [Mass/Vol] 9.4 mg/dL 7.6-11.0 [facility] Serum or plasma potassium me asurementOrdered By: Yesika Faust on 11-14-2024 Potassium [Moles/Vol] 4.3 mmol/L 3.3-5.1 [facility] Comment on above: Hemolysis present, R esults could be affected. Serum or plasma sodium measu rement (moles/volume)Ordered By: Yesika Faust on 11-14-2024 Sodium [Moles/Vol] 141 mmol/L 133-145 [facility] Serum or plasma urea nitroge n measurement (mass/volume)Ordered By: Yesika Faust on 11-14-2024 Urea nitrogen [Mass/Vol] 24 mg/dL High 4-19 [facility] White blood cell (WBC) count Ordered By: Yesika Faust on 11-14-2024 WBC (Bld) [#/Vol] 8.4 10*3/uL 4.4-11.0 [facility] Absolute lymphocyte countOrd ered By: Yesika Faust on 10-17-2024 Lymphocytes Auto (Unsp spec) [#/Vol] 1.81 10*3/uL 0.83-4.51 [facility] Absolute neutrophil countOrd ered By: Yesika Faust on 10-17-2024 Neutrophils (Bld) [#/Vol] 3.3 10*3/uL 2.0-7.7 [facility] Automated lymphocyte count a s percentage of total leukocytesOrdered By: Yesika Faust on 10-17-2024 Lymphocytes/100 WBC Auto (Unsp spec) 26.5 % 19-41 [facility] Basophil percentageOrdered B y: Yesika Faust on 10-17-2024 Basophils/100 WBC (Bld) 0.7 % 0-1 [facility] Bilirubin directOrdered By: Yesika Faust on 10-17-2024 Bilirubin.direct [Mass/Vol] 0.09 mg/dL 0.00-0.30 [facility] Bilirubin, totalOrdered By: Yesika Faust on 10-17-2024 Bilirubin [Mass/Vol] 0.20 mg/dL 0.20-1.00 [facility] Comment on above: For patients on eltr ombopag therapy, use of Dimension [place] TBIL is not recommended. Blood urea nitrogen (BUN)/cr eatinine ratioOrdered By: Yesika Faust on 10-17-2024 Urea nitrogen/Creatinine [Mass ratio] 49.3 mg/mg High 10-20 [facility] Carbon dioxide measurementOr dered By: Yesika Faust on 10-17-2024 CO2 [Moles/Vol] 29.0 mmol/L 21.0-32.0 [facility] Chloride measurementOrdered By: Yesika Faust on 10-17-2024 Chloride [Moles/Vol] 106 mmol/L 98-107 [facility] Eosinophil percentageOrdered By: ky Faust on 10-17-2024 Eosinophils/100 WBC (Bld) 14.6 % High 0-5 [facility] Erythrocyte distribution wid th (RBC) [Ratio]Ordered By: Yesika Faust on 10-17-2024 Erythrocyte distribution width (RBC) [Entitic vol] 46.3 fL High 35.1-43.9 [facility] Erythrocyte distribution wid th ratioOrdered By: ky Faust on 10-17-2024 Erythrocyte distribution width (RBC) [Ratio] 13.0 % 11.6-14.6 [facility] Erythrocyte distribution wid th standard deviationOrdered By: Yesika Faust on 10-17-2024 Erythrocyte distribution width (RBC) [Ratio] 46.3 fl High 35.1-43.9 [facility] Estimated glomerular filtrat ion rate (GFR) AmericanOrdered By: Yesika Faust on 10-17-2024 Estimated GFR (MDRD) Amer 120 mL/min >60 [facility] Comment on above: GFR Calc Glomerular filtration rate ( GFR) estimationOrdered By: Yesika Faust on 10-17-2024 Estimated GFR (MDRD) Non-Af Amer 99 mL/min >60 [facility] Comment on above: Non- GFR Calc GFR/1.73 sq M.predicted among non-blacks MDRD (S/P/Bld) [Vol rate/Area] 99 mL/min/{1.73_m2} >60 [facility] Comment on above: Non- GFR Calc Glucose measurementOrdered B y: Yesika Faust on 10-17-2024 Glucose [Mass/Vol] 86 mg/dL 74-106 [facility] Hematocrit Auto (Bld) [Volum e fraction]Ordered By: Yesika Faust on 10-17-2024 Hematocrit (Bld) [Volume fraction] 41.4 % 37-47 [facility] Hemoglobin measurementOrdere d By: Yesika Faust on 10-17-2024 Hemoglobin (Bld) [Mass/Vol] 13.5 g/dL 12.0-15.0 [facility] Immature granulocytes/100 WB C Auto (Bld)Ordered By: Yesika Faust on 10-17-2024 Immature granulocytes/100 WBC (Bld) 0.400 % 0.0-0.9 [facility] Comment on above: IG% - Immature Granu locytes (promyelocytes, myelocytes and metamyelocytes) > 1% indicates that a LEFT SHIFT is Present. Laboratory - Chemistry and C hemistry - challengeOrdered By: Yesika Faust on 10-17-2024 AST [Catalytic activity/Vol] 12 U/L Low 15-37 [facility] Lymphocytes Auto (Unsp spec) [#/Vol]Ordered By: Yesika Faust on 10-17-2024 Lymphocytes (Bld) [#/Vol] 1.81 10*3/uL 0.83-4.51 [facility] Lymphocytes/100 WBC Auto (Un sp spec)Ordered By: Yesika Faust on 10-17-2024 Lymphocytes/100 WBC (Bld) 26.5 % 19-41 [facility] MCV (mean corpuscular volume ) determinationOrdered By: Yesika Faust on 10-17-2024 MCV (RBC) [Entitic vol] 98.6 fL 81-99 [facility] Mean corpuscular hemoglobin (MCH) determinationOrdered By: Yesika Faust on 10-17-2024 MCH (RBC) [Entitic mass] 32.1 pg High 27.0-32.0 [facility] Mean corpuscular hemoglobin concentration (MCHC) determinationOrdered By: eYsika Faust on 10-17-2024 MCHC (RBC) [Mass/Vol] 32.6 g/dL 32-36 [facility] Mean platelet volume determi nationOrdered By: Yesika Faust on 10-17-2024 Platelet mean volume (Bld) [Entitic vol] 10.6 fL 6.2-12.0 [facility] Monocyte percentageOrdered B y: Yesiak Faust on 10-17-2024 Monocytes/100 WBC (Bld) 9.5 % 0-10 [facility] Neutrophil percentageOrdered By: Yesika Faust on 10-17-2024 Neutrophils/100 WBC (Bld) 48.3 % 47-70 [facility] Nucleated red blood cell per centageOrdered By: Yesika Faust on 10-17-2024 Nucleated RBC/100 WBC (Bld) [Ratio] 0 % 0-5 [facility] Platelet countOrdered By: Tad Faust on 10-17-2024 Platelets (Bld) [#/Vol] 232 10*3/uL 150-450 [facility] Potassium measurementOrdered By: Yesika Faust on 10-17-2024 Potassium [Moles/Vol] 4.0 mmol/L 3.5-5.1 [facility] RBC Auto (Bld) [#/Vol]Ordere d By: Yesika Faust on 10-17-2024 RBC (Bld) [#/Vol] 4.20 10*6/uL 4.2-5.4 [facility] Serum anion gap measurementO rdered By: Yesika Faust on 10-17-2024 Anion gap [Moles/Vol] 5 mmol/L 5-15 [facility] Serum globulin measurementOr dered By: Yesika Faust on 10-17-2024 Globulin (S) [Mass/Vol] 3.2 g/dL 2.2-4.2 [facility] Serum or plasma alanine vela otransferase (ALT) measurementOrdered By: Yesika Faust on 10-17-2024 ALT [Catalytic activity/Vol] 19 U/L 13-56 [facility] Serum or plasma albumin madi urement (mass/volume)Ordered By: Yesika Faust on 10-17-2024 Albumin [Mass/Vol] 3.1 g/dL Low 3.2-5.0 [facility] Serum or plasma alkaline mariaelena sphatase measurementOrdered By: Yesika Faust on 10-17-2024 ALP [Catalytic activity/Vol] 108 U/L 45-117 [facility] Serum or plasma calcium madi urement (mass/volume)Ordered By: Yesika Faust on 10-17-2024 Calcium [Mass/Vol] 9.1 mg/dL 8.5-10.1 [facility] Serum or plasma creatinine m easurement (mass/volume)Ordered By: Yesika Faust on 10-17-2024 Creatinine [Mass/Vol] 0.61 mg/dL 0.55-1.02 [facility] Comment on above: The validity of the calculated GFR & GFRAA in patients over 70 years has not been determined. Clinical correlation is essential. Serum or plasma urea nitroge n measurement (mass/volume)Ordered By: Yesika Faust on 10-17-2024 Urea nitrogen [Mass/Vol] 30 mg/dL High 7-18 [facility] Sodium levelOrdered By: Jed jiangbert Christianne on 10-17-2024 Sodium [Moles/Vol] 140 mmol/L 136-145 [facility] Total proteinOrdered By: Randall montsemacarena Faust on 10-17-2024 Protein [Mass/Vol] 6.3 g/dL Low 6.4-8.2 [facility] White blood cell (WBC) count Ordered By: Yesika Faust on 10-17-2024 WBC (Bld) [#/Vol] 6.8 10*3/uL 4.4-11.0 [facility] Bilirubin Test strip Ql (U)O rdered By: Yesika Faust on 10-14-2024 Bilirubin Ql (U) Negative Negative [facility] Epithelial cells.squamous LM Ql (Urine sed)Ordered By: Yesika Faust on 10-14-2024 Epithelial cells.squamous LM.HPF (Urine sed) [#/Area] 0 /[HPF] 5-10 [facility] Glucose Ql (U)Ordered By: Tad Faust on 10-14-2024 Urine Glucose (UA) Normal mg/dl Normal [facility] Ketones Test strip Ql (U)Ord ered By: Yesika Faust on 10-14-2024 Ketones Ql (U) Negative Negative [facility] Microscopic analysis of urin e for red blood cells (RBC)Ordered By: Yesika Faust on 10-14-2024 Microscopic analysis of urine for red blood cells (RBC) 0 SEEN /hpf 0-5 [facility] Urine RBC 0 SEEN /hpf 0-5 [facility] Mucus LM Ql (Urine sed)Order ed By: Yesika Faust on 10-14-2024 Mucus Ql (Urine sed) 0 SEEN /hpf [facility] Nitrite Test strip Ql (U)Ord ered By: Yesika Faust on 10-14-2024 Nitrite Ql (U) Positive High Negative [facility] Protein Test strip Ql (U)Ord ered By: Yesika Faust on 10-14-2024 Protein Ql (U) 15 mg/dl High Negative [facility] Squamous epithelial cells de tection in urine sediment by light microscopyOrdered By: Yesika Faust on 10-14-2024 Epithelial cells.squamous LM Ql (Urine sed) 0 SEEN /hpf 5-10 [facility] Triple phosphate crystals LM Ql (Urine sed)Ordered By: Yesika Faust on 10-14-2024 Urine Triple Phosphate Crystals 1+ /hpf [facility] Triple phosphate crystals de tection in urine sediment by light microscopyOrdered By: Yesika Faust on 10-14-2024 Triple phosphate crystals LM Ql (Urine sed) 1+ /hpf [facility] Urine blood detectionOrdered By: Yesika Faust on 10-14-2024 Urine Occult Blood Negative Negative [facility] Urine clarityOrdered By: Randall Faust on 10-14-2024 Clarity (U) Sl. Cloudy Clear [facility] Urine color determinationOrd ered By: Yesika Faust on 10-14-2024 Color (U) Yellow Yellow [facility] Urine cultureOrdered By: Randall Faust on 10-14-2024 Bacteria identified Cx Nom (U) Proteus mirabilis Abnormal [facility] Urine glucose detectionOrder ed By: Yesika Faust on 10-14-2024 Glucose Ql (U) Normal mg/dl Normal [facility] Urine leukocyte esterase det ection by dipstickOrdered By: Yesika Faust on 10-14-2024 Leukocyte esterase Test strip Ql (U) 25 /ul High Negative [facility] Urine pHOrdered By: Fernando Faust on 10-14-2024 pH (U) 9.0 [pH] 5.0 - 8.0 [facility] Urine sediment bacteria coun t by microscopy (number/high power field)Ordered By: Yesika Faust on 10-14-2024 Bacteria LM.HPF (Urine sed) [#/Area] 1 /[HPF] None Seen [facility] Urine specific gravity measu rementOrdered By: Yesika Faust on 10-14-2024 Specific gravity (U) [Rel density] 1.015 1.002-1.03 0 [facility] Urine urobilinogen measureme ntOrdered By: Yesika Faust on 10-14-2024 Urobilinogen Ql (U) Normal mg/dl Normal [facility] Urobilinogen Ql (U)Ordered B y: Yesika Faust on 10-14-2024 Urine Urobilinogen Normal mg/dl Normal [facility] White blood cell countOrdere d By: Yesika Faust on 10-14-2024 Urine WBC 0 SEEN /hpf 0-5 [facility] White blood cell count 0 SEEN /hpf 0-5 [facility] Absolute neutrophil countOrd ered By: Yesika Faust on 09-16-2024 Neutrophils (Bld) [#/Vol] 4.4 10*3/uL 2.0-7.7 [facility] Basophil percentageOrdered B y: Yesika Faust on 09-16-2024 Basophils/100 WBC (Bld) 0.7 % 0-1 [facility] Blood urea nitrogen (BUN)/cr eatinine ratioOrdered By: Yesika Faust on 09-16-2024 Urea nitrogen/Creatinine [Mass ratio] 40.5 mg/mg High 10-20 [facility] Carbon dioxide measurementOr dered By: Yesika Faust on 09-16-2024 CO2 [Moles/Vol] 28.0 mmol/L 21.0-32.0 [facility] Chloride measurementOrdered By: Yesika Faust on 09-16-2024 Chloride [Moles/Vol] 106 mmol/L 98-107 [facility] Eosinophil percentageOrdered By: Yesika Faust on 09-16-2024 Eosinophils/100 WBC (Bld) 3.0 % 0-5 [facility] Erythrocyte distribution wid th (RBC) [Ratio]Ordered By: Yesika Faust on 09-16-2024 Erythrocyte distribution width (RBC) [Entitic vol] 48.3 fL High 35.1-43.9 [facility] Erythrocyte distribution wid th ratioOrdered By: Yesika Faust on 09-16-2024 Erythrocyte distribution width (RBC) [Ratio] 13.2 % 11.6-14.6 [facility] Estimated glomerular filtrat ion rate (GFR) AmericanOrdered By: Yesika Faust on 09-16-2024 Estimated GFR (MDRD) Amer 162 mL/min >60 [facility] Comment on above: GFR Calc Glomerular filtration rate ( GFR) estimationOrdered By: Yesika Faust on 09-16-2024 Estimated GFR (MDRD) Non-Af Amer 134 mL/min >60 [facility] Comment on above: Non- GFR Calc Glucose measurementOrdered B y: Yesika Faust on 09-16-2024 Glucose [Mass/Vol] 89 mg/dL 74-106 [facility] Hematocrit Auto (Bld) [Volum e fraction]Ordered By: Yesika Faust on 09-16-2024 Hematocrit (Bld) [Volume fraction] 38.9 % 37-47 [facility] Hemoglobin measurementOrdere d By: Yesika Faust on 09-16-2024 Hemoglobin (Bld) [Mass/Vol] 12.4 g/dL 12.0-15.0 [facility] Immature granulocytes/100 WB C Auto (Bld)Ordered By: Yesika Faust on 09-16-2024 Immature granulocytes/100 WBC (Bld) 0.300 % 0.0-0.9 [facility] Comment on above: IG% - Immature Granu locytes (promyelocytes, myelocytes and metamyelocytes) > 1% indicates that a LEFT SHIFT is Present. Lymphocytes Auto (Unsp spec) [#/Vol]Ordered By: Yesika Faust on 09-16-2024 Lymphocytes (Bld) [#/Vol] 1.59 10*3/uL 0.83-4.51 [facility] Lymphocytes/100 WBC Auto (Un sp spec)Ordered By: Yesika Faust on 09-16-2024 Lymphocytes/100 WBC (Bld) 23.1 % 19-41 [facility] MCV (mean corpuscular volume ) determinationOrdered By: Yesika Faust on 09-16-2024 MCV (RBC) [Entitic vol] 98.7 fL 81-99 [facility] Mean corpuscular hemoglobin (MCH) determinationOrdered By: Yesika Faust on 09-16-2024 MCH (RBC) [Entitic mass] 31.5 pg 27.0-32.0 [facility] Mean corpuscular hemoglobin concentration (MCHC) determinationOrdered By: Yesika Faust on 09-16-2024 MCHC (RBC) [Mass/Vol] 31.9 g/dL Low 32-36 [facility] Mean platelet volume determi nationOrdered By: Yesika Faust on 09-16-2024 Platelet mean volume (Bld) [Entitic vol] 10.6 fL 6.2-12.0 [facility] Monocyte percentageOrdered B y: Yesika Faust on 09-16-2024 Monocytes/100 WBC (Bld) 9.6 % 0-10 [facility] Neutrophil percentageOrdered By: Yesika Faust on 09-16-2024 Neutrophils/100 WBC (Bld) 63.3 % 47-70 [facility] Nucleated red blood cell per centageOrdered By: Yesika Faust on 09-16-2024 Nucleated RBC/100 WBC (Bld) [Ratio] 0 % 0-5 [facility] Platelet countOrdered By: Tad Faust on 09-16-2024 Platelets (Bld) [#/Vol] 241 10*3/uL 150-450 [facility] Potassium measurementOrdered By: Yesika Faust on 09-16-2024 Potassium [Moles/Vol] 3.8 mmol/L 3.5-5.1 [facility] RBC Auto (Bld) [#/Vol]Ordere d By: Yesika Faust on 09-16-2024 RBC (Bld) [#/Vol] 3.94 10*6/uL Low 4.2-5.4 [facility] Serum anion gap measurementO rdered By: Yesika Faust on 09-16-2024 Anion gap [Moles/Vol] 5 mmol/L 5-15 [facility] Serum or plasma calcium madi urement (mass/volume)Ordered By: Yesika Faust on 09-16-2024 Calcium [Mass/Vol] 8.8 mg/dL 8.5-10.1 [facility] Serum or plasma creatinine m easurement (mass/volume)Ordered By: Yesika Faust on 09-16-2024 Creatinine [Mass/Vol] 0.47 mg/dL Low 0.55-1.02 [facility] Comment on above: The validity of the calculated GFR & GFRAA in patients over 70 years has not been determined. Clinical correlation is essential. Serum or plasma urea nitroge n measurement (mass/volume)Ordered By: Yesika Faust on 09-16-2024 Urea nitrogen [Mass/Vol] 19 mg/dL High 7-18 [facility] Sodium levelOrdered By: Jed Faust on 09-16-2024 Sodium [Moles/Vol] 139 mmol/L 136-145 [facility] White blood cell (WBC) count Ordered By: Yesika Faust on 09-16-2024 WBC (Bld) [#/Vol] 6.9 10*3/uL 4.4-11.0 [facility] Absolute neutrophil countOrd ered By: Yesika Faust on 08-16-2024 Neutrophils (Bld) [#/Vol] 3.4 10*3/uL 2.0-7.7 [facility] Basophil percentageOrdered B y: Yesika Faust on 08-16-2024 Basophils/100 WBC (Bld) 0.7 % 0-1 [facility] Blood urea nitrogen (BUN)/cr eatinine ratioOrdered By: Yesika Faust on 08-16-2024 Urea nitrogen/Creatinine [Mass ratio] 35.8 mg/mg High 10-20 [facility] Carbon dioxide measurementOr dered By: Yesika Faust on 08-16-2024 CO2 [Moles/Vol] 28.0 mmol/L 21.0-32.0 [facility] Chloride measurementOrdered By: Yesika Faust on 08-16-2024 Chloride [Moles/Vol] 110 mmol/L High 98-107 [facility] Eosinophil percentageOrdered By: Yesika Faust on 08-16-2024 Eosinophils/100 WBC (Bld) 3.1 % 0-5 [facility] Erythrocyte distribution wid th (RBC) [Ratio]Ordered By: Yesika Faust on 08-16-2024 Erythrocyte distribution width (RBC) [Entitic vol] 50.8 fL High 35.1-43.9 [facility] Erythrocyte distribution wid th ratioOrdered By: [facility] Fa[facility] on 08-16-2024 Erythrocyte distribution width (RBC) [Ratio] 14.0 % 11.6-14.6 [facility] Estimated glomerular filtrat ion rate (GFR) AmericanOrdered By: enriquetakernersvillemacarena Faust on 08-16-2024 Estimated GFR (MDRD) Amer 141 mL/min >60 [facility] Comment on above: GFR Calc Glomerular filtration rate ( GFR) estimationOrdered By: enriquetakernersvillemacarena Faust on 08-16-2024 Estimated GFR (MDRD) Non-Af Amer 116 mL/min >60 [facility] Comment on above: Non- GFR Calc Glucose measurementOrdered B y: Yesika Faust on 08-16-2024 Glucose [Mass/Vol] 85 mg/dL 74-106 [facility] Hematocrit Auto (Bld) [Volum e fraction]Ordered By: [facility] Butterfieldrafaela on 08-16-2024 Hematocrit (Bld) [Volume fraction] 41.2 % 37-47 [facility] Hemoglobin measurementOrdere d By: enriquetakernersvillemacarena Faust on 08-16-2024 Hemoglobin (Bld) [Mass/Vol] 12.9 g/dL 12.0-15.0 [facility] Immature granulocytes/100 WB C Auto (Bld)Ordered By: ky Faust on 08-16-2024 Immature granulocytes/100 WBC (Bld) 0.300 % 0.0-0.9 [facility] Comment on above: IG% - Immature Granu locytes (promyelocytes, myelocytes and metamyelocytes) > 1% indicates that a LEFT SHIFT is Present. Lymphocytes Auto (Unsp spec) [#/Vol]Ordered By: enriquetakernersvillemacarena Faust on 08-16-2024 Lymphocytes (Bld) [#/Vol] 1.61 10*3/uL 0.83-4.51 [facility] Lymphocytes/100 WBC Auto (Un sp spec)Ordered By: Yesika Faust on 08-16-2024 Lymphocytes/100 WBC (Bld) 27.4 % 19-41 [facility] MCV (mean corpuscular volume ) determinationOrdered By: Yesika Faust on 08-16-2024 MCV (RBC) [Entitic vol] 99.0 fL 81-99 [facility] Mean corpuscular hemoglobin (MCH) determinationOrdered By: Yesika Faust on 08-16-2024 MCH (RBC) [Entitic mass] 31.0 pg 27.0-32.0 [facility] Mean corpuscular hemoglobin concentration (MCHC) determinationOrdered By: Yesika Faust on 08-16-2024 MCHC (RBC) [Mass/Vol] 31.3 g/dL Low 32-36 [facility] Mean platelet volume determi nationOrdered By: Yesika Faust on 08-16-2024 Platelet mean volume (Bld) [Entitic vol] 10.8 fL 6.2-12.0 [facility] Monocyte percentageOrdered B y: Yesika Faust on 08-16-2024 Monocytes/100 WBC (Bld) 10.5 % High 0-10 [facility] Neutrophil percentageOrdered By: Yesika Faust on 08-16-2024 Neutrophils/100 WBC (Bld) 58.0 % 47-70 [facility] Nucleated red blood cell per centageOrdered By: Yesika Faust on 08-16-2024 Nucleated RBC/100 WBC (Bld) [Ratio] 0 % 0-5 [facility] Platelet countOrdered By: Tad Faust on 08-16-2024 Platelets (Bld) [#/Vol] 242 10*3/uL 150-450 [facility] Potassium measurementOrdered By: Yesika Faust on 08-16-2024 Potassium [Moles/Vol] 3.9 mmol/L 3.5-5.1 [facility] RBC Auto (Bld) [#/Vol]Ordere d By: Yesika Faust on 08-16-2024 RBC (Bld) [#/Vol] 4.16 10*6/uL Low 4.2-5.4 [facility] Serum anion gap measurementO rdered By: Yesika Faust on 08-16-2024 Anion gap [Moles/Vol] 4 mmol/L Low 5-15 [facility] Serum or plasma calcium madi urement (mass/volume)Ordered By: Yesika Faust on 08-16-2024 Calcium [Mass/Vol] 8.9 mg/dL 8.5-10.1 [facility] Serum or plasma creatinine m easurement (mass/volume)Ordered By: Yesika Faust on 08-16-2024 Creatinine [Mass/Vol] 0.53 mg/dL Low 0.55-1.02 [facility] Comment on above: The validity of the calculated GFR & GFRAA in patients over 70 years has not been determined. Clinical correlation is essential. Serum or plasma urea nitroge n measurement (mass/volume)Ordered By: Yesika Faust on 08-16-2024 Urea nitrogen [Mass/Vol] 19 mg/dL High 7-18 [facility] Sodium levelOrdered By: Jed denae Scoutkathierafaela on 08-16-2024 Sodium [Moles/Vol] 142 mmol/L 136-145 [facility] White blood cell (WBC) count Ordered By: Yesika Faust on 08-16-2024 WBC (Bld) [#/Vol] 5.9 10*3/uL 4.4-11.0 [facility] Absolute lymphocyte countOrd ered By: Yesika Faust on 11-17-2023 Lymphocytes Auto (Unsp spec) [#/Vol] 1.64 10*3/uL 0.83-4.51 [facility] Automated lymphocyte count a s percentage of total leukocytesOrdered By: Yesika Faust on 11-17-2023 Lymphocytes/100 WBC Auto (Unsp spec) 26.6 % 19-41 [facility] Basophil percentageOrdered B y: Yesika Faust on 11-17-2023 Basophils/100 WBC (Bld) 0.6 % 0-1 [facility] Chloride [Moles/Vol] 109 mmol/L 98-107 [facility] Eosinophils/100 WBC (Bld) 1.8 % 0-5 [facility] Glucose [Mass/Vol] 91 mg/dL 74-106 [facility] Hemoglobin (Bld) [Mass/Vol] 12.9 g/dL 12.0-15.0 [facility] Monocytes/100 WBC (Bld) 9.4 % 0-10 [facility] Neutrophils (Bld) [#/Vol] 3.8 10*3/uL 2.0-7.7 [facility] Neutrophils/100 WBC (Bld) 61.1 % 47-70 [facility] Potassium [Moles/Vol] 3.8 mmol/L 3.5-5.1 [facility] Sodium [Moles/Vol] 140 mmol/L 136-145 [facility] WBC (Bld) [#/Vol] 6.2 10*3/uL 4.4-11.0 [facility] Determination of erythrocyte mean corpuscular volume (MCV)Ordered By: Yesika Faust on 11-17-2023 MCV (RBC) [Entitic vol] 91.8 fL 81-99 [facility] Erythrocyte distribution wid th ratioOrdered By: [facility] Scoutrafaela on 11-17-2023 Erythrocyte distribution width (RBC) [Ratio] 14.3 % 11.6-14.6 [facility] Erythrocyte distribution wid th standard deviationOrdered By: [facility] Scoutrafaela on 11-17-2023 Erythrocyte distribution width (RBC) [Entitic vol] 48.0 fL 35.1-43.9 [facility] Hematocrit Auto (Bld) [Volum e fraction]Ordered By: Yesika Faust on 11-17-2023 Hematocrit (Bld) [Volume fraction] 39.3 % 37-47 [facility] Immature granulocytes/100 WB C Auto (Bld)Ordered By: enriquetakernersvillemacarena Faust on 11-17-2023 Immature granulocytes/100 WBC (Bld) 0.500 % 0.0-0.9 [facility] Comment on above: IG% - Immature Granu locytes (promyelocytes, myelocytes and metamyelocytes) > 1% indicates that a LEFT SHIFT is Present. Laboratory - Chemistry and C hemistry - challengeOrdered By: Yesika Faust on 11-17-2023 CO2 [Moles/Vol] 28.0 mmol/L 21.0-32.0 [facility] Urea nitrogen/Creatinine [Mass ratio] 18.6 mg/mg 10-20 [facility] Laboratory - Hematology and Cell countsOrdered By: Yesika Faust on 11-17-2023 MCH (RBC) [Entitic mass] 30.1 pg 27.0-32.0 [facility] MCHC (RBC) [Mass/Vol] 32.8 g/dL 32-36 [facility] Nucleated RBC/100 WBC (Bld) [Ratio] 0 % 0-5 [facility] Platelet mean volume (Bld) [Entitic vol] 9.9 fL 6.2-12.0 [facility] Platelets (Bld) [#/Vol] 230 10*3/uL 150-450 [facility] No Panel InformationOrdered By: Yesika Faust on 11-17-2023 Estimated GFR (MDRD) Amer 94 mL/min >60 [facility] Comment on above: GFR Calc Estimated GFR (MDRD) Non-Af Amer 78 mL/min >60 [facility] Comment on above: Non- GFR Calc RBC Auto (Bld) [#/Vol]Ordere d By: Yesika Faust on 11-17-2023 RBC (Bld) [#/Vol] 4.28 10*6/uL 4.2-5.4 [facility] Serum or plasma calcium madi urement (mass/volume)Ordered By: Yesika Faust on 11-17-2023 Calcium [Mass/Vol] 9.2 mg/dL 8.5-10.1 [facility] Serum or plasma creatinine m easurement (mass/volume)Ordered By: Yesika Faust on 11-17-2023 Creatinine [Mass/Vol] 0.75 mg/dL 0.55-1.02 [facility] Comment on above: The validity of the calculated GFR & GFRAA in patients over 70 years has not been determined. Clinical correlation is essential. Serum or plasma urea nitroge n measurement (mass/volume)Ordered By: Yesika Faust on 11-17-2023 Urea nitrogen [Mass/Vol] 14 mg/dL 7-18 [facility] Thin prep Papanicolaou smear with manual screeningOrdered By: Yesika Faust on 11-17-2023 Thin prep Papanicolaou smear with manual screening 3 5-15 [facility] Absolute lymphocyte countOrd ered By: Yesika Faust on 08-18-2023 Lymphocytes Auto (Unsp spec) [#/Vol] 1.67 10*3/uL 0.83-4.51 [facility] Basophil percentageOrdered B y: Yesika Faust on 08-18-2023 Basophils/100 WBC (Bld) 0.7 % 0-1 [facility] Chloride [Moles/Vol] 109 mmol/L 98-107 [facility] Eosinophils/100 WBC (Bld) 2.8 % 0-5 [facility] Glucose [Mass/Vol] 89 mg/dL 74-106 [facility] Neutrophils (Bld) [#/Vol] 3.1 10*3/uL 2.0-7.7 [facility] Neutrophils/100 WBC (Bld) 56.1 % 47-70 [facility] Potassium [Moles/Vol] 4.0 mmol/L 3.5-5.1 [facility] Sodium [Moles/Vol] 141 mmol/L 136-145 [facility] WBC (Bld) [#/Vol] 5.4 10*3/uL 4.4-11.0 [facility] Blood erythrocytes count (nu mber/volume)Ordered By: Yesika Faust on 08-18-2023 RBC (Bld) [#/Vol] 4.55 10*6/uL 4.2-5.4 [facility] Blood hemoglobin measurement (mass/volume)Ordered By: Yesika Faust on 08-18-2023 Hemoglobin (Bld) [Mass/Vol] 12.9 g/dL 12.0-15.0 [facility] Blood lymphocytes/100 leukoc ytesOrdered By: Yesika Faust on 08-18-2023 Lymphocytes/100 WBC (Bld) 30.8 % 19-41 [facility] Blood monocytes/100 leukocyt esOrdered By: Yesika Faust on 08-18-2023 Monocytes/100 WBC (Bld) 9.4 % 0-10 [facility] Blood platelet mean volumeOr dered By: Yesika Faust on 08-18-2023 Platelet mean volume (Bld) [Entitic vol] 10.4 fL 6.2-12.0 [facility] Determination of erythrocyte mean corpuscular volume (MCV)Ordered By: Yesika Faust on 08-18-2023 MCV (RBC) [Entitic vol] 89.5 fL 81-99 [facility] Hematocrit Auto (Bld) [Volum e fraction]Ordered By: enriquetakernersvillemacarena Faust on 08-18-2023 Hematocrit (Bld) [Volume fraction] 40.7 % 37-47 [facility] Laboratory - Chemistry and C hemistry - challengeOrdered By: [facility] on 08-18-2023 CO2 [Moles/Vol] 29.0 mmol/L 21.0-32.0 [facility] Urea nitrogen/Creatinine [Mass ratio] 16.6 mg/mg 10-20 [facility] Laboratory - Hematology and Cell countsOrdered By: enriquetakernersvillemacarena Faust on 08-18-2023 Erythrocyte distribution width (RBC) [Entitic vol] 45.5 fL 35.1-43.9 [facility] Erythrocyte distribution width (RBC) [Ratio] 13.9 % 11.6-14.6 [facility] Immature granulocytes/100 WBC (Bld) 0.200 % 0.0-0.9 [facility] Comment on above: IG% - Immature Granu locytes (promyelocytes, myelocytes and metamyelocytes) > 1% indicates that a LEFT SHIFT is Present. MCH (RBC) [Entitic mass] 28.4 pg 27.0-32.0 [facility] Nucleated RBC/100 WBC (Bld) [Ratio] 0 % 0-5 [facility] MCHC Auto (RBC) [Mass/Vol]Or dered By: Yesika Faust on 08-18-2023 MCHC (RBC) [Mass/Vol] 31.7 g/dL 32-36 [facility] No Panel InformationOrdered By: Yesika Faust on 08-18-2023 Estimated GFR (MDRD) Amer 109 mL/min >60 [facility] Comment on above: GFR Calc Estimated GFR (MDRD) Non-Af Amer 90 mL/min >60 [facility] Comment on above: Non- GFR Calc Platelets bldOrdered By: Randall Faust on 08-18-2023 Platelets (Bld) [#/Vol] 221 10*3/uL 150-450 [facility] Serum or plasma calcium madi urement (mass/volume)Ordered By: Yesika Faust on 08-18-2023 Calcium [Mass/Vol] 8.8 mg/dL 8.5-10.1 [facility] Serum or plasma creatinine m easurement (mass/volume)Ordered By: Yesika Faust on 08-18-2023 Creatinine [Mass/Vol] 0.66 mg/dL 0.55-1.02 [facility] Comment on above: The validity of the calculated GFR & GFRAA in patients over 70 years has not been determined. Clinical correlation is essential. Serum or plasma urea nitroge n measurement (mass/volume)Ordered By: Yesika Faust on 08-18-2023 Urea nitrogen [Mass/Vol] 11 mg/dL 7-18 [facility] Thin prep Papanicolaou smear with manual screeningOrdered By: Yesika Faust on 08-18-2023 Thin prep Papanicolaou smear with manual screening 3 5-15 [facility] Absolute lymphocyte countOrd ered By: Yesika Faust on 05-19-2023 Lymphocytes Auto (Unsp spec) [#/Vol] 1.86 10*3/uL 0.83-4.51 [facility] Basophil percentageOrdered B y: Yesika Faust on 05-19-2023 Basophils/100 WBC (Bld) 0.8 % 0-1 [facility] Chloride [Moles/Vol] 107 mmol/L 98-107 [facility] Eosinophils/100 WBC (Bld) 1.5 % 0-5 [facility] Glucose [Mass/Vol] 125 mg/dL 74-106 [facility] Comment on above: Fasting Glucose resu lt from 100 to 125 mg/dL suggests IMPAIRED HOMEOSTASIS per A.D.A. criteria. Neutrophils (Bld) [#/Vol] 3.4 10*3/uL 2.0-7.7 [facility] Neutrophils/100 WBC (Bld) 55.5 % 47-70 [facility] Potassium [Moles/Vol] 3.6 mmol/L 3.5-5.1 [facility] Sodium [Moles/Vol] 139 mmol/L 136-145 [facility] WBC (Bld) [#/Vol] 6.2 10*3/uL 4.4-11.0 [facility] Blood erythrocytes count (nu mber/volume)Ordered By: Yesika Faust on 05-19-2023 RBC (Bld) [#/Vol] 4.24 10*6/uL 4.2-5.4 [facility] Blood hemoglobin measurement (mass/volume)Ordered By: Yesika Faust on 05-19-2023 Hemoglobin (Bld) [Mass/Vol] 11.7 g/dL 12.0-15.0 [facility] Blood lymphocytes/100 leukoc ytesOrdered By: Yesika Faust on 05-19-2023 Lymphocytes/100 WBC (Bld) 30.1 % 19-41 [facility] Blood monocytes/100 leukocyt esOrdered By: Yesika Faust on 05-19-2023 Monocytes/100 WBC (Bld) 11.8 % 0-10 [facility] Blood platelet mean volumeOr dered By: Yesika Faust on 05-19-2023 Platelet mean volume (Bld) [Entitic vol] 10.5 fL 6.2-12.0 [facility] Determination of erythrocyte mean corpuscular volume (MCV)Ordered By: Yesika Faust on 05-19-2023 MCV (RBC) [Entitic vol] 90.3 fL 81-99 [facility] Hematocrit Auto (Bld) [Volum e fraction]Ordered By: Yesika Faust on 05-19-2023 Hematocrit (Bld) [Volume fraction] 38.3 % 37-47 [facility] Laboratory - Chemistry and C hemistry - challengeOrdered By: Yesika Fuast on 05-19-2023 CO2 [Moles/Vol] 29.0 mmol/L 21.0-32.0 [facility] Urea nitrogen/Creatinine [Mass ratio] 21.6 mg/mg 10-20 [facility] Laboratory - Hematology and Cell countsOrdered By: Yesika Faust on 05-19-2023 Erythrocyte distribution width (RBC) [Entitic vol] 50.2 fL 35.1-43.9 [facility] Erythrocyte distribution width (RBC) [Ratio] 15.2 % 11.6-14.6 [facility] Immature granulocytes/100 WBC (Bld) 0.300 % 0.0-0.9 [facility] Comment on above: IG% - Immature Granu locytes (promyelocytes, myelocytes and metamyelocytes) > 1% indicates that a LEFT SHIFT is Present. MCH (RBC) [Entitic mass] 27.6 pg 27.0-32.0 [facility] Nucleated RBC/100 WBC (Bld) [Ratio] 0 % 0-5 [facility] MCHC Auto (RBC) [Mass/Vol]Or dered By: Yesika Faust on 05-19-2023 MCHC (RBC) [Mass/Vol] 30.5 g/dL 32-36 [facility] No Panel InformationOrdered By: Yesika Faust on 05-19-2023 Estimated GFR (MDRD) Amer 74 mL/min >60 [facility] Comment on above: GFR Calc Estimated GFR (MDRD) Non-Af Amer 61 mL/min >60 [facility] Comment on above: Non- GFR Calc Platelets bldOrdered By: Randall Fasut on 05-19-2023 Platelets (Bld) [#/Vol] 234 10*3/uL 150-450 [facility] Serum or plasma calcium madi urement (mass/volume)Ordered By: Yesika Faust on 05-19-2023 Calcium [Mass/Vol] 8.7 mg/dL 8.5-10.1 [facility] Serum or plasma creatinine m easurement (mass/volume)Ordered By: Yesika Faust on 05-19-2023 Creatinine [Mass/Vol] 0.92 mg/dL 0.55-1.02 [facility] Comment on above: The validity of the calculated GFR & GFRAA in patients over 70 years has not been determined. Clinical correlation is essential. Serum or plasma urea nitroge n measurement (mass/volume)Ordered By: Yesika Faust on 05-19-2023 Urea nitrogen [Mass/Vol] 20 mg/dL 7-18 [facility] Thin prep Papanicolaou smear with manual screeningOrdered By: ky Faust on 05-19-2023 Thin prep Papanicolaou smear with manual screening 3 5-15 [facility] Absolute lymphocyte countOrd ered By: Yesika Faust on 02-17-2023 Lymphocytes Auto (Unsp spec) [#/Vol] 1.67 10*3/uL 0.83-4.51 [facility] Basophil percentageOrdered B y: Yesika Faust on 02-17-2023 Basophils/100 WBC (Bld) 0.8 % 0-1 [facility] Chloride [Moles/Vol] 109 mmol/L 98-107 [facility] Eosinophils/100 WBC (Bld) 2.8 % 0-5 [facility] Glucose [Mass/Vol] 94 mg/dL 74-106 [facility] Neutrophils (Bld) [#/Vol] 3.9 10*3/uL 2.0-7.7 [facility] Neutrophils/100 WBC (Bld) 60.0 % 47-70 [facility] Potassium [Moles/Vol] 3.7 mmol/L 3.5-5.1 [facility] Sodium [Moles/Vol] 141 mmol/L 136-145 [facility] WBC (Bld) [#/Vol] 6.5 10*3/uL 4.4-11.0 [facility] Blood erythrocytes count (nu mber/volume)Ordered By: Yesika Faust on 02-17-2023 RBC (Bld) [#/Vol] 4.33 10*6/uL 4.2-5.4 [facility] Blood hemoglobin measurement (mass/volume)Ordered By: eYsika Faust on 02-17-2023 Hemoglobin (Bld) [Mass/Vol] 11.4 g/dL 12.0-15.0 [facility] Blood lymphocytes/100 leukoc ytesOrdered By: [facility] Fa[facility] on 02-17-2023 Lymphocytes/100 WBC (Bld) 25.9 % 19-41 [facility] Blood monocytes/100 leukocyt esOrdered By: [facility] Scoutrafaela on 02-17-2023 Monocytes/100 WBC (Bld) 10.2 % 0-10 [facility] Blood platelet mean volumeOr dered By: [facility] Scoutrafaela on 02-17-2023 Platelet mean volume (Bld) [Entitic vol] 10.6 fL 6.2-12.0 [facility] Determination of erythrocyte mean corpuscular volume (MCV)Ordered By: [facility] Scoutrafaela on 02-17-2023 MCV (RBC) [Entitic vol] 86.4 fL 81-99 [facility] Hematocrit Auto (Bld) [Volum e fraction]Ordered By: [facility] Scoutrafaela on 02-17-2023 Hematocrit (Bld) [Volume fraction] 37.4 % 37-47 [facility] Laboratory - Chemistry and C hemistry - challengeOrdered By: [facility] Butterfieldrafaela on 02-17-2023 CO2 [Moles/Vol] 28.0 mmol/L 21.0-32.0 [facility] Urea nitrogen/Creatinine [Mass ratio] 16.1 mg/mg 10-20 [facility] Laboratory - Hematology and Cell countsOrdered By: [facility] Scoutrafaela on 02-17-2023 Erythrocyte distribution width (RBC) [Entitic vol] 56.0 fL 35.1-43.9 [facility] Erythrocyte distribution width (RBC) [Ratio] 17.5 % 11.6-14.6 [facility] Immature granulocytes/100 WBC (Bld) 0.300 % 0.0-0.9 [facility] Comment on above: IG% - Immature Granu locytes (promyelocytes, myelocytes and metamyelocytes) > 1% indicates that a LEFT SHIFT is Present. MCH (RBC) [Entitic mass] 26.3 pg 27.0-32.0 [facility] Nucleated RBC/100 WBC (Bld) [Ratio] 0 % 0-5 [facility] ([facility]BC) [Mass/Vol]Or dered By: Yesika Faust on 02-17-2023 MCHC (RBC) [Mass/Vol] 30.5 g/dL 32-36 [facility] No Panel InformationOrdered By: Yesika Faust on 02-17-2023 Estimated GFR (MDRD) Amer 106 mL/min >60 [facility] Comment on above: GFR Calc Estimated GFR (MDRD) Non-Af Amer 87 mL/min >60 [facility] Comment on above: Non- GFR Calc Platelets bldOrdered By: Randall Faust on 02-17-2023 Platelets (Bld) [#/Vol] 228 10*3/uL 150-450 [facility] Serum or plasma calcium madi urement (mass/volume)Ordered By: Yesika Faust on 02-17-2023 Calcium [Mass/Vol] 8.8 mg/dL 8.5-10.1 [facility] Serum or plasma creatinine m easurement (mass/volume)Ordered By: Yesika Faust on 02-17-2023 Creatinine [Mass/Vol] 0.68 mg/dL 0.55-1.02 [facility] Comment on above: The validity of the calculated GFR & GFRAA in patients over 70 years has not been determined. Clinical correlation is essential. Serum or plasma urea nitroge n measurement (mass/volume)Ordered By: Yesika Faust on 02-17-2023 Urea nitrogen [Mass/Vol] 11 mg/dL 7-18 [facility] Thin prep Papanicolaou smear with manual screeningOrdered By: Yesika Faust on 02-17-2023 Thin prep Papanicolaou smear with manual screening 4 5-15 [facility] Basophil percentageOrdered B y: Cl Tsang on 01-12-2023 Cholesterol [Mass/Vol] 112 mg/dL <200 [facility] Comment on above: <200 mg/dL Desirable 200-240 mg/dL Borderline >240 mg/dL High Risk Triglyceride [Mass/Vol] 110 mg/dL <199 [facility] Comment on above: The drugs N-Acetylcy steine and Metamizole may falsely depress this assay.Serum Triglycerides Reference Interval Normal <150 mg/dL Borderline high 150 - 199 mg/dL High 200 - 499 mg/dL Very High > or = 500 mg/dL Serum or plasma cholesterol in HDL measurement (mass/volume)Ordered By: Cl Tsang on 01-12-2023 Cholesterol in HDL [Mass/Vol] 50 mg/dL >40 [facility] Comment on above: The drugs N-Acetylcy steine and Metamizole may falsely depress this assay. Reference Range HDL <40 mg/dL Low HDL Cholesterol HDL >or= 60 mg/dL High HDL Cholesterol Serum or plasma cholesterol in VLDL measurement (mass/volume)Ordered By: Cl Tsang on 01-12-2023 Cholesterol in VLDL [Mass/Vol] 22 mg/dL 5-40 [facility] Serum or plasma low density lipoprotein (LDL) cholesterol measurement (mass/volume)Ordered By: Cl Tsang on 01-12-2023 Cholesterol in LDL [Mass/Vol] 40 mg/dL 0-130 [facility] Basophil percentageOrdered B y: Yesika Faust on 11-18-2022 Chloride [Moles/Vol] 108 mmol/L 98-107 [facility] Glucose [Mass/Vol] 114 mg/dL 74-106 [facility] Comment on above: Fasting Glucose resu lt from 100 to 125 mg/dL suggests IMPAIRED HOMEOSTASIS per A.D.A. criteria. Potassium [Moles/Vol] 4.1 mmol/L 3.5-5.1 [facility] Sodium [Moles/Vol] 142 mmol/L 136-145 [facility] WBC (Bld) [#/Vol] 5.6 10*3/uL 4.4-11.0 [facility] Blood erythrocytes count (nu mber/volume)Ordered By: Yesika Faust on 11-18-2022 RBC (Bld) [#/Vol] 3.89 10*6/uL 4.2-5.4 [facility] Blood hemoglobin measurement (mass/volume)Ordered By: Yesika Faust on 11-18-2022 Hemoglobin (Bld) [Mass/Vol] 10.5 g/dL 12.0-15.0 [facility] Blood platelet mean volumeOr dered By: Yesika Faust on 11-18-2022 Platelet mean volume (Bld) [Entitic vol] 10.7 fL 6.2-12.0 [facility] Determination of erythrocyte mean corpuscular volume (MCV)Ordered By: Yesika Faust on 11-18-2022 MCV (RBC) [Entitic vol] 88.4 fL 81-99 [facility] Hematocrit Auto (Bld) [Volum e fraction]Ordered By: Yesika Faust on 11-18-2022 Hematocrit (Bld) [Volume fraction] 34.4 % 37-47 [facility] Laboratory - Chemistry and C hemistry - challengeOrdered By: Yesika Faust on 11-18-2022 CO2 [Moles/Vol] 27.0 mmol/L 21.0-32.0 [facility] Urea nitrogen/Creatinine [Mass ratio] 18.9 mg/mg 10-20 [facility] Laboratory - Hematology and Cell countsOrdered By: Yesika Faust on 11-18-2022 Erythrocyte distribution width (RBC) [Entitic vol] 43.8 fL 35.1-43.9 [facility] Erythrocyte distribution width (RBC) [Ratio] 13.4 % 11.6-14.6 [facility] MCH (RBC) [Entitic mass] 27.0 pg 27.0-32.0 [facility] MCHC Auto (RBC) [Mass/Vol]Or dered By: Yesika Faust on 11-18-2022 MCHC (RBC) [Mass/Vol] 30.5 g/dL 32-36 [facility] No Panel InformationOrdered By: Yesika Faust on 11-18-2022 Estimated GFR (MDRD) Amer 115 mL/min >60 [facility] Comment on above: GFR Calc Estimated GFR (MDRD) Non-Af Amer 95 mL/min >60 [facility] Comment on above: Non- GFR Calc Platelets bldOrdered By: Randall Faust on 11-18-2022 Platelets (Bld) [#/Vol] 247 10*3/uL 150-450 [facility] Serum or plasma calcium madi urement (mass/volume)Ordered By: Yesika Faust on 11-18-2022 Calcium [Mass/Vol] 9.1 mg/dL 8.5-10.1 [facility] Serum or plasma creatinine m easurement (mass/volume)Ordered By: Yesika Faust on 11-18-2022 Creatinine [Mass/Vol] 0.64 mg/dL 0.55-1.02 [facility] Comment on above: The validity of the calculated GFR & GFRAA in patients over 70 years has not been determined. Clinical correlation is essential. Serum or plasma urea nitroge n measurement (mass/volume)Ordered By: Yesika Faust on 11-18-2022 Urea nitrogen [Mass/Vol] 12 mg/dL 7-18 [facility] Thin prep Papanicolaou smear with manual screeningOrdered By: [facility] on 11-18-2022 Thin prep Papanicolaou smear with manual screening 7 5-15 [facility] Absolute lymphocyte countOrd ered By: Yesika Faust on 08-19-2022 Lymphocytes Auto (Unsp spec) [#/Vol] 1.60 10*3/uL 0.83-4.51 [facility] Basophil percentageOrdered B y: Yesika Faust on 08-19-2022 Basophils/100 WBC (Bld) 0.4 % 0-1 [facility] Chloride [Moles/Vol] 105 mmol/L 98-107 [facility] Eosinophils/100 WBC (Bld) 0.2 % 0-5 [facility] Glucose [Mass/Vol] 96 mg/dL 74-106 [facility] Neutrophils (Bld) [#/Vol] 3.3 10*3/uL 2.0-7.7 [facility] Neutrophils/100 WBC (Bld) 59.4 % 47-70 [facility] Potassium [Moles/Vol] 4.0 mmol/L 3.5-5.1 [facility] Sodium [Moles/Vol] 141 mmol/L 136-145 [facility] WBC (Bld) [#/Vol] 5.6 10*3/uL 4.4-11.0 [facility] Blood erythrocytes count (nu mber/volume)Ordered By: Yesika Faust on 08-19-2022 RBC (Bld) [#/Vol] 4.44 10*6/uL 4.2-5.4 [facility] Blood hemoglobin measurement (mass/volume)Ordered By: Yesika Faust on 08-19-2022 Hemoglobin (Bld) [Mass/Vol] 13.0 g/dL 12.0-15.0 [facility] Blood lymphocytes/100 leukoc ytesOrdered By: Yesika Faust on 08-19-2022 Lymphocytes/100 WBC (Bld) 28.8 % 19-41 [facility] Blood monocytes/100 leukocyt esOrdered By: Yesika Faust on 08-19-2022 Monocytes/100 WBC (Bld) 11.0 % 0-10 [facility] Blood platelet mean volumeOr dered By: Yesika Faust on 08-19-2022 Platelet mean volume (Bld) [Entitic vol] 10.7 fL 6.2-12.0 [facility] Determination of erythrocyte mean corpuscular volume (MCV)Ordered By: Yesika Faust on 08-19-2022 MCV (RBC) [Entitic vol] 93.0 fL 81-99 [facility] Hematocrit Auto (Bld) [Volum e fraction]Ordered By: Yesika Faust on 08-19-2022 Hematocrit (Bld) [Volume fraction] 41.3 % 37-47 [facility] Laboratory - Chemistry and C hemistry - challengeOrdered By: Yesika Faust on 08-19-2022 CO2 [Moles/Vol] 29.0 mmol/L 21.0-32.0 [facility] Urea nitrogen/Creatinine [Mass ratio] 19.4 mg/mg 10-20 [facility] Laboratory - Hematology and Cell countsOrdered By: Yesika Faust on 08-19-2022 Erythrocyte distribution width (RBC) [Entitic vol] 44.3 fL 35.1-43.9 [facility] Erythrocyte distribution width (RBC) [Ratio] 12.9 % 11.6-14.6 [facility] Immature granulocytes/100 WBC (Bld) 0.200 % 0.0-0.9 [facility] Comment on above: IG% - Immature Granu locytes (promyelocytes, myelocytes and metamyelocytes) > 1% indicates that a LEFT SHIFT is Present. MCH (RBC) [Entitic mass] 29.3 pg 27.0-32.0 [facility] Nucleated RBC/100 WBC (Bld) [Ratio] 0 % 0-5 [facility] MCHC Auto (RBC) [Mass/Vol]Or dered By: Yesika Faust on 08-19-2022 MCHC (RBC) [Mass/Vol] 31.5 g/dL 32-36 [facility] No Panel InformationOrdered By: Yesika Faust on 08-19-2022 Estimated GFR (MDRD) Amer 99 mL/min >60 [facility] Comment on above: GFR Calc Estimated GFR (MDRD) Non-Af Amer 82 mL/min >60 [facility] Comment on above: Non- GFR Calc Platelets bldOrdered By: Randall Faust on 08-19-2022 Platelets (Bld) [#/Vol] 216 10*3/uL 150-450 [facility] Serum or plasma calcium madi urement (mass/volume)Ordered By: Yesika Faust on 08-19-2022 Calcium [Mass/Vol] 9.4 mg/dL 8.5-10.1 [facility] Serum or plasma creatinine m easurement (mass/volume)Ordered By: Yesika Faust on 08-19-2022 Creatinine [Mass/Vol] 0.72 mg/dL 0.55-1.02 [facility] Comment on above: The validity of the calculated GFR & GFRAA in patients over 70 years has not been determined. Clinical correlation is essential. Serum or plasma urea nitroge n measurement (mass/volume)Ordered By: Yesika Faust on 08-19-2022 Urea nitrogen [Mass/Vol] 14 mg/dL 7-18 [facility] Thin prep Papanicolaou smear with manual screeningOrdered By: Yesika Faust on 08-19-2022 Thin prep Papanicolaou smear with manual screening 7 5-15 [facility] Absolute lymphocyte counton 05-20-2022 Lymphocytes Auto (Unsp spec) [#/Vol] 1.88 10*3/uL 0.83-4.51 [facility] Work Phone: Basophil percentageon 2021 Basophils/100 WBC (Bld) 0.7 % 0-1 [facility] Work Phone: Chloride [Moles/Vol] 111 mmol/L 98-107 [facility]: Eosinophils/100 WBC (Bld) 4.0 % 0-5 [facility] Work Phone: Glucose [Mass/Vol] 94 mg/dL 74-106 [facility] Work Phone: Neutrophils (Bld) [#/Vol] 3.3 10*3/uL 2.0-7.7 [facility] Work Phone: Neutrophils/100 WBC (Bld) 55.6 % 47-70 [facility] Work Phone: Potassium [Moles/Vol] 4.1 mmol/L 3.5-5.1 [facility] Work [facility]: Sodium [Moles/Vol] 139 mmol/L 136-145 [facility] Work Phone: WBC (Bld) [#/Vol] 6.0 10*3/uL 4.4-11.0 [facility] Work Phone: Blood erythrocytes count (nu mber/volume)on 05-20-2022 RBC (Bld) [#/Vol] 4.01 10*6/uL 4.2-5.4 [facility] Work Phone: Blood hemoglobin measurement (mass/volume)on 05-20-2022 Hemoglobin (Bld) [Mass/Vol] 13.0 g/dL 12.0-15.0 [facility] Work Phone: Blood lymphocytes/100 leukoc yteson 05-20-2022 Lymphocytes/100 WBC (Bld) 31.5 % 19-41 [facility] Work Phone: Blood monocytes/100 leukocyt eson 05-20-2022 Monocytes/100 WBC (Bld) 8.0 % 0-10 [facility] Work Phone: Blood platelet mean volumeon 05-20-2022 Platelet mean volume (Bld) [Entitic vol] 10.3 fL 6.2-12.0 [facility] Work Phone: Determination of erythrocyte mean corpuscular volume (MCV)on 05-20-2022 MCV (RBC) [Entitic vol] 99.3 fL 81-99 [facility] Work Phone: Hematocrit Auto (Bld) [Volum e fraction]on 05-20-2022 Hematocrit (Bld) [Volume fraction] 39.8 % 37-47 [facility] Work Phone: Laboratory - Chemistry and C hemistry - challengeon 05-20-2022 CO2 [Moles/Vol] 17.0 mmol/L 21.0-32.0 [facility] Work Phone: Urea nitrogen/Creatinine [Mass ratio] 13.2 mg/mg 10-20 [facility] Work Phone: Laboratory - Hematology and Cell countson 05-20-2022 Erythrocyte distribution width (RBC) [Entitic vol] 52.0 fL 35.1-43.9 [facility] Work Phone: Erythrocyte distribution width (RBC) [Ratio] 14.4 % 11.6-14.6 [facility] Work Phone: Immature granulocytes/100 WBC (Bld) 0.200 % 0.0-0.9 [facility] Work Phone: Comment on above: IG% - Immature Granu locytes (promyelocytes, myelocytes and metamyelocytes) > 1% indicates that a LEFT SHIFT is Present. MCH (RBC) [Entitic mass] 32.4 pg 27.0-32.0 [facility] Work Phone: Nucleated RBC/100 WBC (Bld) [Ratio] 0 % 0-5 [facility] Work Phone: MCHC Auto (RBC) [Mass/Vol]on 05-20-2022 MCHC (RBC) [Mass/Vol] 32.7 g/dL 32-36 [facility] Work Phone: No Panel Informationon 05-20 Estimated GFR (MDRD) Amer 94 mL/min >60 [facility] Work Phone: Comment on above: GFR Calc Estimated GFR (MDRD) Non-Af Amer 77 mL/min >60 [facility] Work Phone: Comment on above: Non- GFR Calc Platelets bldon 05-20-2022 Platelets (Bld) [#/Vol] 188 10*3/uL 150-450 [facility] Work Phone: Serum or plasma calcium madi urement (mass/volume)on 05-20-2022 Calcium [Mass/Vol] 9.5 mg/dL 8.5-10.1 [facility] Work Phone: Serum or plasma creatinine m easurement (mass/volume)on 05-20-2022 Creatinine [Mass/Vol] 0.76 mg/dL 0.55-1.02 [facility] Work Phone: Comment on above: The validity of the calculated GFR & GFRAA in patients over 70 years has not been determined. Clinical correlation is essential. Serum or plasma urea nitroge n measurement (mass/volume)on 05-20-2022 Urea nitrogen [Mass/Vol] 10 mg/dL 7-18 [facility] Work Phone: Thin prep Papanicolaou smear with manual screeningon 05-20-2022 Thin prep Papanicolaou smear with manual screening 11 5-15 [facility] Work Phone: Bilirubin Test strip Ql (U)o n 03-07-2022 Bilirubin Ql (U) Negative Negative [facility] Work Phone: Ketones Test strip Ql (U)on 03-07-2022 Ketones Ql (U) Negative Negative [facility] Work Phone: Nitrite Test strip Ql (U)on 03-07-2022 Nitrite Ql (U) Positive Negative [facility] Work Phone: Protein Test strip Ql (U)on 03-07-2022 Protein Ql (U) Negative Negative [facility] Work Phone: Urine blood detectionon 02-13 RBC Ql (U) 25 /ul Negative [facility] Work Phone: Urine clarityon 03-07-2022 Clarity (U) Clear Clear [facility] Work Phone: Urine color determinationon 03-07-2022 Color (U) Yellow Yellow [facility] Work Phone: Urine glucose detectionon Glucose Ql (U) Normal mg/dl Normal [facility] Work Phone: Urine leukocyte esterase det ection by dipstickon 03-07-2022 Leukocyte esterase Test strip Ql (U) 500 /ul Negative [facility] Work Phone: Urine pHon 03-07-2022 pH (U) 6.5 [pH] 5.0 - 8.0 [facility] Work Phone: Urine specific gravity measu rementon 03-07-2022 Specific gravity (U) [Rel density] 1.010 1.002-1.03 0 [facility] Work Phone: Urobilinogen Auto test strip Ql (U)on 03-07-2022 Urobilinogen Ql (U) Normal mg/dl Normal [facility] Work Phone: Basophil percentageon 2021 Cholesterol [Mass/Vol] 117 mg/dL <200 [facility] Work Phone: Comment on above: <200 mg/dL Desirable 200-240 mg/dL Borderline >240 mg/dL High Risk Triglyceride [Mass/Vol] 118 mg/dL [facility] Work Phone: Comment on above: The drugs N-Acetylcy steine and Metamizole may falsely depress this assay.Serum Triglycerides Reference Interval Normal <150 mg/dL Borderline high 150 - 199 mg/dL High 200 - 499 mg/dL Very High > or = 500 mg/dL Serum or plasma cholesterol in HDL measurement (mass/volume)on 01-13-2022 Cholesterol in HDL [Mass/Vol] 44 mg/dL [facility] Work Phone: Comment on above: The drugs N-Acetylcy steine and Metamizole may falsely depress this assay. Reference Range HDL <40 mg/dL Low HDL Cholesterol HDL >or= 60 mg/dL High HDL Cholesterol Serum or plasma cholesterol in VLDL measurement (mass/volume)on 01-13-2022 Cholesterol in VLDL [Mass/Vol] 24 mg/dL 5-40 [facility] Work Phone: Serum or plasma low density lipoprotein (LDL) cholesterol measurement (mass/volume)on 01-13-2022 Cholesterol in LDL [Mass/Vol] 49 mg/dL 0-130 [facility] Work Phone: Absolute lymphocyte counton 11-12-2021 Lymphocytes Auto (Unsp spec) [#/Vol] 1.48 10*3/uL 0.83-4.51 [facility] Work Phone: Basophil percentageon 2021 Basophils/100 WBC (Bld) 0.5 % 0-1 [facility] Work Phone: Chloride [Moles/Vol] 108 mmol/L 98-107 [facility] Work Phone: Eosinophils/100 WBC (Bld) 1.4 % 0-5 [facility] Work Phone: Glucose [Mass/Vol] 105 mg/dL 74-106 [facility] Work Phone: Comment on above: Fasting Glucose resu lt from 100 to 125 mg/dL suggests IMPAIRED HOMEOSTASIS per A.D.A. criteria. Neutrophils (Bld) [#/Vol] 3.5 10*3/uL 2.0-7.7 [facility] Work Phone: Neutrophils/100 WBC (Bld) 61.7 % 47-70 [facility] Work Phone: Potassium [Moles/Vol] 3.8 mmol/L 3.5-5.1 [facility] Work Phone: Sodium [Moles/Vol] 139 mmol/L 136-145 [facility] Work Phone: WBC (Bld) [#/Vol] 5.7 10*3/uL 4.4-11.0 [facility] Work Phone: Blood erythrocytes count (nu mber/volume)on 11-12-2021 RBC (Bld) [#/Vol] 4.44 10*6/uL 4.2-5.4 [facility]: Blood hemoglobin measurement (mass/volume)on 11-12-2021 Hemoglobin (Bld) [Mass/Vol] 13.7 g/dL 12.0-15.0 [facility] Work Phone: Blood lymphocytes/100 leukoc yteson 11-12-2021 Lymphocytes/100 WBC (Bld) 26.0 % 19-41 [facility] Work Phone: Blood monocytes/100 leukocyt eson 11-12-2021 Monocytes/100 WBC (Bld) 10.0 % 0-10 [facility] Work Phone: Blood platelet mean volumeon 11-12-2021 Platelet mean volume (Bld) [Entitic vol] 10.2 fL 6.2-12.0 [facility] Work Phone: Determination of erythrocyte mean corpuscular volume (MCV)on 11-12-2021 MCV (RBC) [Entitic vol] 89.4 fL 81-99 [facility] Work Phone: Hematocrit Auto (Bld) [Volum e fraction]on 11-12-2021 Hematocrit (Bld) [Volume fraction] 39.7 % 37-47 [facility] Work Phone: Laboratory - Chemistry and C hemistry - challengeon 11-12-2021 CO2 [Moles/Vol] 29.0 mmol/L 21.0-32.0 [facility] Work Phone: Urea nitrogen/Creatinine [Mass ratio] 16.9 mg/mg 10-20 [facility] Work Phone: Laboratory - Hematology and Cell countson 11-12-2021 Erythrocyte distribution width (RBC) [Entitic vol] 41.8 fL 35.1-43.9 [facility] Work Phone: Erythrocyte distribution width (RBC) [Ratio] 12.8 % 11.6-14.6 [facility] Work Phone: Immature granulocytes/100 WBC (Bld) 0.400 % 0.0-0.9 [facility] Work Phone: Comment on above: IG% - Immature Granu locytes (promyelocytes, myelocytes and metamyelocytes) > 1% indicates that a LEFT SHIFT is Present. MCH (RBC) [Entitic mass] 30.9 pg 27.0-32.0 [facility] Work Phone: Nucleated RBC/100 WBC (Bld) [Ratio] 0 % 0-5 [facility] Work Phone: MCHC Auto (RBC) [Mass/Vol]on 11-12-2021 MCHC (RBC) [Mass/Vol] 34.5 g/dL 32-36 [facility] Work Phone: No Panel Informationon 11-12 Estimated GFR (MDRD) Amer 101 mL/min >60 [facility] Work Phone: Comment on above: GFR Calc Estimated GFR (MDRD) Non-Af Amer 84 mL/min >60 [facility] Work Phone: Comment on above: Non- GFR Calc Platelets bldon 11-12-2021 Platelets (Bld) [#/Vol] 194 10*3/uL 150-450 [facility] Work Phone: Serum or plasma calcium madi urement (mass/volume)on 11-12-2021 Calcium [Mass/Vol] 9.5 mg/dL 8.5-10.1 [facility] Work Phone: Serum or plasma creatinine m easurement (mass/volume)on 11-12-2021 Creatinine [Mass/Vol] 0.71 mg/dL 0.55-1.02 [facility] Work Phone: Comment on above: The validity of the calculated GFR & GFRAA in patients over 70 years has not been determined. Clinical correlation is essential. Serum or plasma urea nitroge n measurement (mass/volume)on 11-12-2021 Urea nitrogen [Mass/Vol] 12 mg/dL 7-18 [facility] Work Phone: Thin prep Papanicolaou smear with manual screeningon 11-12-2021 Thin prep Papanicolaou smear with manual screening 2 5-15 [facility] Work Phone: XR SPINE CERVICAL 1 [...] 10:22:47 AM Ordering Provider:Dc Mota [facility] ([place]) .GFRon 06-09-2019 GFR >60 Normal [facility] ([place]) Comment on above: Result Comment: GFR Population [...] #### C BC, DIFF, MORPH, BMP, GFR ####[address] [address] GFR Non- >60 Normal [facility] ([place]) Comment on above: Result Comment: GFR Population [...] #### C BC, DIFF, MORPH, BMP, GFR ####[place] [address] .Manual Diffon 06-09-2019 Basophil %, Manual 1.0 % Normal 0.0-2.5 [facility] ([place]) Comment on above: Performed By: #### C BC, DIFF, MORPH, BMP, GFR ####[place] [address] Basophil, Abs Manual 0.08 10 3/mcL Normal 0.00-0.27 [facility] ([place]) Comment on above: Performed By: #### C BC, DIFF, MORPH, BMP, GFR ####[place] [address] [address] [facility] ([place]) Comment on above: Performed By: #### C BC, DIFF, MORPH, BMP, GFR ####[place] [address] Eosinophil %, Manual 2.0 % Normal 0.0-6.0 [facility] ([place]) Comment on above: Performed By: #### C BC, DIFF, MORPH, BMP, GFR ####[address] [place] [address] Eosinophil, Abs Manual 0.16 10 3/mcL Normal 0.00-0.65 [facility] ([place]) Comment on above: Performed By: #### C BC, DIFF, MORPH, BMP, GFR ####[address] [address] Lymphocyte %, Manual 9.0 % Low 20.0-40.0 [facility] ([place]) Comment on above: Performed By: #### C BC, DIFF, MORPH, BMP, GFR ####[address] [address] Lymphocyte, Abs Manual 0.72 10 3/mcL Low 0.90-4.32 [facility] ([place]) Comment on above: Performed By: #### C BC, DIFF, MORPH, BMP, GFR ####[address] [address] Monocyte %, Manual 6.0 % Normal 2.0-13.0 [facility] ([place]) Comment on above: Performed By: #### C BC, DIFF, MORPH, BMP, GFR ####[address] [address] Monocyte, Abs Manual 0.48 10 3/mcL Normal 0.09-1.40 [facility] ([place]) Comment on above: Performed By: #### C BC, DIFF, MORPH, BMP, GFR ####[address] [address] Myelocyte 1.0 % Normal [facility] ([place]) Comment on above: Performed By: #### C BC, DIFF, MORPH, BMP, GFR ####[place] [id number] Neutrophil %, Manual 81.0 % High 50.0-75.0 [facility] ([place] Comment on above: Performed By: #### C BC, DIFF, MORPH, BMP, GFR ####[address] [address] Neutrophil, Abs Manual 6.48 10 3/mcL Normal 2.25-8.10 [facility] ([place]) Comment on above: Performed By: #### C BC, DIFF, MORPH, BMP, GFR ####[address] [address] .Morphon 06-09-2019 Platelets (Bld) [#/Vol] Normal Normal [facility] ([place]) Comment on above: Performed By: #### C BC, DIFF, MORPH, BMP, GFR ####[address] [address] Polychrom Slight Normal [facility] ([place]) Comment on above: Performed By: #### C BC, DIFF, MORPH, BMP, GFR ####[address] [address] BMPon 06-09-2019 Creatinine [Mass/Vol] 0.75 mg/dL Normal 0.50-1.20 [facility] ([place]) Comment on above: Performed By: #### C BC, DIFF, MORPH, BMP, GFR ####[place] [address] Urea nitrogen/Creatinine [Mass ratio] 18.7 ratio Normal 10.0-22.0 [facility] ([place]) Comment on above: Performed By: #### C BC, DIFF, MORPH, BMP, GFR ####[place] [address] Calcium [Mass/Vol] 8.2 mg/dL Low 8.4-10.1 [facility] ([place]) Comment on above: Performed By: #### C BC, DIFF, MORPH, BMP, GFR ####[address] [address] Chloride [Moles/Vol] 106 mmol/L Normal 98-110 [facility] ([place]) Comment on above: Performed By: #### C BC, DIFF, MORPH, BMP, GFR ####[address] [address] CO2 [Moles/Vol] 18 mmol/L Low 22-32 [facility] ([place]) Comment on above: Performed By: #### C BC, DIFF, MORPH, BMP, GFR ####[place] [address] Electrolyte Balance 16.0 mEq/L High 4.0-15.0 [facility] ([place]) Comment on above: Performed By: #### C BC, DIFF, MORPH, BMP, GFR ####[address] [address] Glucose [Mass/Vol] 109 mg/dL Normal 82-115 [facility] ([place]) Comment on above: Performed By: #### C BC, DIFF, MORPH, BMP, GFR ####[address] [address] Potassium [Moles/Vol] 3.8 mmol/L Normal 3.5-5.0 [facility] ([place]) Comment on above: Performed By: #### C BC, DIFF, MORPH, BMP, GFR ####[address] [address] Sodium [Moles/Vol] 140 mmol/L Normal 136-145 [facility] ([place]) Comment on above: Performed By: #### C BC, DIFF, MORPH, BMP, GFR ####[address] [address] Urea nitrogen [Mass/Vol] 14.0 mg/dL Normal 8.0-22.0 [facility] ([place]) Comment on above: Performed By: #### C BC, DIFF, MORPH, BMP, GFR ####[address] [address] CBCon 06-09-2019 Platelet mean volume (Bld) [Entitic vol] 8.6 fL Normal 6.6-10.5 [facility] ([place]) Comment on above: Performed By: #### C BC, DIFF, MORPH, BMP, GFR ####[address] [address] Platelets (Bld) [#/Vol] 229 10 3/mcL Normal 150-450 [facility] ([place]) Comment on above: Performed By: #### C BC, DIFF, MORPH, BMP, GFR ####[address] [address] WBC (Bld) [#/Vol] 8.00 10 3/mcL Normal 4.50-10.80 [facility] ([place]) Comment on above: Performed By: #### C BC, DIFF, MORPH, BMP, GFR ####[place] [address] Erythrocyte distribution width (RBC) [Ratio] 13.8 % Normal 11.5-15.5 [facility] ([place]) Comment on above: Performed By: #### C BC, DIFF, MORPH, BMP, GFR ####[place] [address] Hematocrit (Bld) [Volume fraction] 26.6 % Low 34.0-46.0 [facility] ([place]) Comment on above: Performed By: #### C BC, DIFF, MORPH, BMP, GFR ####[place] [address] Hemoglobin (Bld) [Mass/Vol] 9.1 G/dL Low 12.0-16.0 [facility] ([place]) Comment on above: Performed By: #### C BC, DIFF, MORPH, BMP, GFR ####[place] [address] MCH (RBC) [Entitic mass] 30.1 pg Normal 27.0-33.0 [facility] ([place] Comment on above: Performed By: #### C BC, DIFF, MORPH, BMP, GFR ####[place] [address] MCHC (RBC) [Mass/Vol] 34.3 G/dL Normal 32.0-36.0 [facility] ([place]) Comment on above: Performed By: #### C BC, DIFF, MORPH, BMP, GFR ####[place] [address] MCV (RBC) [Entitic vol] 87.9 fL Normal 80.0-99.0 [facility] ([place]) Comment on above: Performed By: #### C BC, DIFF, MORPH, BMP, GFR ####[place] [address] RBC (Bld) [#/Vol] 3.03 10 6/mcL Low 4.10-5.30 [facility] ([place]) Comment on above: Performed By: #### C BC, DIFF, MORPH, BMP, GFR ####[place] [id number] [address] [place] [address] XR CHEST 2 VIEWSon 9 XR CHEST [...] AM Sign Date: 06/09/2019 7:22:18 AM Normal [facility] ([place]) .GFRon 06-08-2019 GFR >60 Normal [facility] ([place]) Comment on above: Result Comment: GFR Population [...] meters Performed By: #### B MP, GFR ####[address] [address] GFR Non- >60 Normal [facility] ([place]) Comment on above: Result Comment: GFR Population [...] meters Performed By: #### B MP, GFR ####[address] [address] BMPon 06-08-2019 Creatinine [Mass/Vol] 0.60 mg/dL Normal 0.50-1.20 [facility] ([place]) Comment on above: Performed By: #### B MP, GFR ####[address] [address] Urea nitrogen/Creatinine [Mass ratio] 21.7 ratio Normal 10.0-22.0 [facility] ([place]) Comment on above: Performed By: #### B MP, GFR ####[address] [address] Calcium [Mass/Vol] 7.9 mg/dL Low 8.4-10.1 [facility] ([place]) Comment on above: Performed By: #### B MP, GFR ####[address] [address] Chloride [Moles/Vol] 107 mmol/L Normal 98-110 [facility] ([place]) Comment on above: Performed By: #### B MP, GFR ####[address] [address] CO2 [Moles/Vol] 28 mmol/L Normal 22-32 [facility] ([place]) Comment on above: Performed By: #### B MP, GFR ####[address] [address] Electrolyte Balance 8.0 mEq/L Normal 4.0-15.0 [facility] ([place]) Comment on above: Performed By: #### B MP, GFR ####[place] [id number] [address] [place] [address] Glucose [Mass/Vol] 115 mg/dL Normal 82-115 [facility] ([place]) Comment on above: Performed By: #### B MP, GFR ####[place] [id number] [place] [address] Potassium [Moles/Vol] 3.7 mmol/L Normal 3.5-5.0 [facility] ([place]) Comment on above: Performed By: #### B MP, GFR ####[address] [address] Sodium [Moles/Vol] 143 mmol/L Normal 136-145 [facility] ([place]) Comment on above: Performed By: #### B MP, GFR ####[address] [address] Urea nitrogen [Mass/Vol] 13.0 mg/dL Normal 8.0-22.0 [facility] ([place] Comment on above: Performed By: #### B MP, GFR ####[address] [address] XR CHEST 2 VIEWSon 9 XR CHEST [...] AM Sign Date: 06/08/2019 6:29:24 AM Normal [facility] ([place]) .Auto Diffon 06-07-2019 Ammonia (P) [Mass/Vol] 0.40 10 3/mcL Normal 0.09-1.40 [facility] ([place]) Comment on above: Performed By: #### C BC, STEPHANIE, LOU, CMP, GFR ####[address] [address] Basophils (Bld) [#/Vol] 0.00 10 3/mcL Normal 0.00-0.27 [facility] ([place]) Comment on above: Performed By: #### C BC, ADIFF, ANEU, CMP, GFR ####[address] [address] Basophils/100 WBC (Bld) 0.4 % Normal 0.0-2.5 [facility] ([place]) Comment on above: Performed By: #### C BC, ADIFF, ANEU, CMP, GFR ####[address] [address] Eosinophils (Bld) [#/Vol] 0.30 10 3/mcL Normal 0.00-0.65 [facility] ([place]) Comment on above: Performed By: #### C BC, ADIFF, ANEU, CMP, GFR ####[address] [address] Eosinophils/100 WBC (Bld) 6.6 % High 0.0-6.0 [facility] ([place]) Comment on above: Performed By: #### C BC, ADIFF, ANEU, CMP, GFR ####[address] [address] Lymphocytes (Bld) [#/Vol] 1.00 10 3/mcL Normal 0.90-4.32 [facility] ([place]) Comment on above: Performed By: #### C BC, ADIFF, ANEU, CMP, GFR ####[address] [address] Lymphocytes/100 WBC (Bld) 19.0 % Low 20.0-40.0 [facility] ([place]) Comment on above: Performed By: #### C BC, ADIFF, ANEU, CMP, GFR ####[address] [address] Monocytes/100 WBC (Bld) 7.4 % Normal 2.0-13.0 [facility] ([place]) Comment on above: Performed By: #### C BC, ADIFF, ANEU, CMP, GFR ####[address] [address] Neutrophils/100 WBC (Bld) 66.6 % Normal 50.0-75.0 [facility] ([place] Comment on above: Performed By: #### C BC, ADIFF, ANEU, CMP, GFR ####[address] [address] Ammonia (P) [Mass/Vol] 0.50 10 3/mcL Normal 0.09-1.40 [facility] ([place]) Comment on above: Performed By: #### C BC, ADIFF, ANEU, BMP, GFR ####[address] [address] Basophils (Bld) [#/Vol] 0.00 10 3/mcL Normal 0.00-0.27 [facility] ([place] Comment on above: Performed By: #### C BC, ADIFF, ANEU, BMP, GFR ####[address] [address] Basophils/100 WBC (Bld) 0.7 % Normal 0.0-2.5 [facility] ([place] Comment on above: Performed By: #### C BC, ADIFF, ANEU, BMP, GFR ####[address] [address] Eosinophils (Bld) [#/Vol] 0.10 10 3/mcL Normal 0.00-0.65 [facility] ([place]) Comment on above: Performed By: #### C BC, ADIFF, ANEU, BMP, GFR ####[address] [address] Eosinophils/100 WBC (Bld) 1.8 % Normal 0.0-6.0 [facility] ([place]) Comment on above: Performed By: #### C BC, ADIFF, ANEU, BMP, GFR ####[address] [address] Lymphocytes (Bld) [#/Vol] 2.10 10 3/mcL Normal 0.90-4.32 [facility] ([place]) Comment on above: Performed By: #### C BC, ADIFF, ANEU, BMP, GFR ####[address] [address] Lymphocytes/100 WBC (Bld) 32.8 % Normal 20.0-40.0 [facility] ([place]) Comment on above: Performed By: #### C BC, ADIFF, ANEU, BMP, GFR ####[address] [address] Monocytes/100 WBC (Bld) 7.1 % Normal 2.0-13.0 [facility] ([place]) Comment on above: Performed By: #### C BC, ADIFF, ANEU, BMP, GFR ####[address] [address] Neutrophils/100 WBC (Bld) 57.6 % Normal 50.0-75.0 [facility] ([place]) Comment on above: Performed By: #### C BC, ADIFF, ANEU, BMP, GFR ####[address] [address] Ammonia (P) [Mass/Vol] 0.60 10 3/mcL Normal 0.09-1.40 [facility] ([place]) Comment on above: Performed By: #### C BC, ADIFF, ANEU #### [address] [address] #### BMP, GFR #### [address] [address] Basophils (Bld) [#/Vol] 0.00 10 3/mcL Normal 0.00-0.27 [facility] ([place]) Comment on above: Performed By: #### C BC, ADIFF, ANEU #### [address] [address] #### BMP, GFR #### [address] [address] Basophils/100 WBC (Bld) 0.5 % Normal 0.0-2.5 [facility] ([place]) Comment on above: Performed By: #### C BC, ADIFF, ANEU #### [place] [address] #### BMP, GFR #### [address] [address] Eosinophils (Bld) [#/Vol] 0.10 10 3/mcL Normal 0.00-0.65 [facility] ([place]) Comment on above: Performed By: #### C BC, ADIFF, ANEU #### [address] [address] #### BMP, GFR #### [address] [address] Eosinophils/100 WBC (Bld) 2.2 % Normal 0.0-6.0 [facility] ([place]) Comment on above: Performed By: #### C BC, ADIFF, ANEU #### [address] [address] #### BMP, GFR #### [address] [address] Lymphocytes (Bld) [#/Vol] 0.80 10 3/mcL Low 0.90-4.32 [facility] ([place]) Comment on above: Performed By: #### C BC, ADIFF, ANEU #### [address] [address] #### BMP, GFR #### [address] [address] Lymphocytes/100 WBC (Bld) 12.3 % Low 20.0-40.0 [facility] ([place]) Comment on above: Performed By: #### C BC, ADIFF, ANEU #### [address] [address] #### BMP, GFR #### [address] [address] Monocytes/100 WBC (Bld) 9.5 % Normal 2.0-13.0 [facility] ([place]) Comment on above: Performed By: #### C BC, ADIFF, ANEU #### [address] [address] #### BMP, GFR #### [address] [address] Neutrophils/100 WBC (Bld) 75.5 % High 50.0-75.0 [facility] ([place]) Comment on above: Performed By: #### C BC, BRYANIFF, ANEU #### [place] [address] [place], [place] [address] #### BMP, GFR #### [facility] [address] [place] [address] .GFRon 06-07-2019 GFR >60 Normal [facility] ([place]) Comment on above: Result Comment: GFR Population [...] Performed By: #### C BC, ADYAMILEX, ANEU, CMP, GFR ####[address] [address] GFR Non- >60 Normal [facility] ([place]) Comment on above: Result Comment: GFR Population [...] #### C BC, ADIFF, ANEU, CMP, GFR ####[place] [phone] [place] [address] GFR >60 Normal [facility] ([place] Comment on above: Result Comment: GFR Population [...] #### C BC, ADIFF, ANEU, BMP, GFR ####[place] [address] GFR Non- >60 Normal [facility] ([place] Comment on above: Result Comment: GFR Population [...] #### C BC, ADIFF, ANEU, BMP, GFR ####[address] [address] GFR Non- >60 Normal [facility] ([place] Comment on above: Result Comment: GFR Population [...] #### C BC, ADIFF, ANEU, BMP, GFR ####[address] [address] GFR >60 Normal [facility] ([place] Comment on above: Result Comment: GFR Population [...] #### C BC, ADIFF, ANEU, BMP, GFR ####[address] [address] .NEUABSon 06-07-2019 Neutrophils (Bld) [#/Vol] 3.40 10 3/mcL Normal 2.25-8.10 [facility] ([place] Comment on above: Performed By: #### C BC, ADIFF, ANEU, CMP, GFR ####[address] [address] Neutrophils (Bld) [#/Vol] 3.80 10 3/mcL Normal 2.25-8.10 [facility] ([place]) Comment on above: Performed By: #### C BC, ADIFF, ANEU, BMP, GFR ####[address] [address] Neutrophils (Bld) [#/Vol] 5.00 10 3/mcL Normal 2.25-8.10 [facility] ([place]) Comment on above: Performed By: #### C BC, ADIFF, ANEU #### [address] [address] #### BMP, GFR #### [address] [address] BMPon 06-07-2019 Creatinine [Mass/Vol] 0.66 mg/dL Normal 0.50-1.20 [facility] ([place]) Comment on above: Performed By: #### C BC, ADIFF, ANEU, BMP, GFR ####[address] [address] Urea nitrogen/Creatinine [Mass ratio] 16.7 ratio Normal 10.0-22.0 [facility] ([place]) Comment on above: Performed By: #### C BC, ADIFF, ANEU, BMP, GFR ####[address] [address] Calcium [Mass/Vol] 7.8 mg/dL Low 8.4-10.1 [facility] ([place]) Comment on above: Performed By: #### C BC, ADIFF, ANEU, BMP, GFR ####[address] [address] Chloride [Moles/Vol] 106 mmol/L Normal 98-110 [facility] ([place]) Comment on above: Performed By: #### C BC, ADIFF, ANEU, BMP, GFR ####[address] [address] CO2 [Moles/Vol] 26 mmol/L Normal 22-32 [facility] ([place]) Comment on above: Performed By: #### C BC, ADIFF, ANEU, BMP, GFR ####[address] [address] Electrolyte Balance 9.0 mEq/L Normal 4.0-15.0 [facility] ([place]) Comment on above: Performed By: #### C BC, ADIFF, ANEU, BMP, GFR ####[address] [address] Glucose [Mass/Vol] 101 mg/dL Normal 82-115 [facility] ([place]) Comment on above: Performed By: #### C BC, ADIFF, ANEU, BMP, GFR ####[address] [address] Potassium [Moles/Vol] 3.6 mmol/L Normal 3.5-5.0 [facility] ([place]) Comment on above: Performed By: #### C BC, ADIFF, ANEU, BMP, GFR ####[address] [address] Sodium [Moles/Vol] 141 mmol/L Normal 136-145 [facility] ([place]) Comment on above: Performed By: #### C BC, ADIFF, ANEU, BMP, GFR ####[address] [address] Urea nitrogen [Mass/Vol] 11.0 mg/dL Normal 8.0-22.0 [facility] ([place]) Comment on above: Performed By: #### C BC, ADIFF, ANEU, BMP, GFR ####[address] [address] Calcium [Mass/Vol] 8.4 mg/dL Normal 8.4-10.1 [facility] ([place]) Comment on above: Performed By: #### C BC, ADIFF, ANEU, BMP, GFR ####[address] [address] Chloride [Moles/Vol] 106 mmol/L Normal 98-110 [facility] ([place]) Comment on above: Performed By: #### C BC, ADIFF, ANEU, BMP, GFR ####[address] [address] CO2 [Moles/Vol] 25 mmol/L Normal 22-32 [facility] ([place] Comment on above: Performed By: #### C BC, ADIFF, ANEU, BMP, GFR ####[address] [address] Creatinine [Mass/Vol] 0.73 mg/dL Normal 0.50-1.20 [facility] ([place]) Comment on above: Performed By: #### C BC, ADIFF, ANEU, BMP, GFR ####[address] [address] Electrolyte Balance 9.0 mEq/L Normal 4.0-15.0 [facility] ([place]) Comment on above: Performed By: #### C BC, ADIFF, ANEU, BMP, GFR ####[address] [address] Glucose [Mass/Vol] 230 mg/dL High 82-115 [facility] ([place]) Comment on above: Performed By: #### C BC, ADIFF, ANEU, BMP, GFR ####[address] [address] Potassium [Moles/Vol] 3.8 mmol/L Normal 3.5-5.0 [facility] ([place]) Comment on above: Performed By: #### C BC, ADIFF, ANEU, BMP, GFR ####[place] [address] Sodium [Moles/Vol] 140 mmol/L Normal 136-145 [facility] ([place]) Comment on above: Performed By: #### C BC, ADIFF, ANEU, BMP, GFR ####[address] [address] Urea nitrogen [Mass/Vol] 16.0 mg/dL Normal 8.0-22.0 [facility] ([place]) Comment on above: Performed By: #### C BC, ADIFF, ANEU, BMP, GFR ####[address] [address] Urea nitrogen/Creatinine [Mass ratio] 21.9 ratio Normal 10.0-22.0 [facility] ([place]) Comment on above: Performed By: #### C BC, ADIFF, ANEU, BMP, GFR ####[address] [address] CBCon 06-07-2019 Erythrocyte distribution width (RBC) [Ratio] 12.5 % Normal 11.5-15.5 [facility] ([place]) Comment on above: Performed By: #### C BC, ADIFF, ANEU, CMP, GFR ####[place] [address] Hematocrit (Bld) [Volume fraction] 35.3 % Low 40.0-52.0 [facility] ([place]) Comment on above: Performed By: #### C BC, ADIFF, ANEU, CMP, GFR ####[place] [address] Hemoglobin (Bld) [Mass/Vol] 12.0 G/dL Low 13.0-17.5 [facility] ([place]) Comment on above: Performed By: #### C BC, ADIFF, ANEU, CMP, GFR ####[place] [address] MCH (RBC) [Entitic mass] 32.0 pg Normal 27.0-33.0 [facility] ([place]) Comment on above: Performed By: #### C BC, ADIFF, ANEU, CMP, GFR ####[place] [address] MCHC (RBC) [Mass/Vol] 34.1 G/dL Normal 32.0-36.0 [facility] ([place]) Comment on above: Performed By: #### C BC, ADIFF, ANEU, CMP, GFR ####[place] [address] MCV (RBC) [Entitic vol] 94.1 fL Normal 81.0-100.0 [facility] ([place]) Comment on above: Performed By: #### C BC, ADIFF, ANEU, CMP, GFR ####[place] [address] Platelet mean volume (Bld) [Entitic vol] 6.9 fL Normal 6.4-10.5 [facility] ([place]) Comment on above: Performed By: #### C BC, ADIFF, ANEU, CMP, GFR ####[place] [address] Platelets (Bld) [#/Vol] 109 10 3/mcL Low 150-450 [facility] ([place]) Comment on above: Performed By: #### C BC, ADIFF, ANEU, CMP, GFR ####[address] [address] RBC (Bld) [#/Vol] 3.76 10 6/mcL Low 4.50-6.00 [facility] ([place]) Comment on above: Performed By: #### C BC, ADIFF, ANEU, CMP, GFR ####[place] [id number] WBC (Bld) [#/Vol] 5.00 10 3/mcL Normal 4.50-10.80 [facility] ([place]) Comment on above: Performed By: #### C BC, ADIFF, ANEU, CMP, GFR ####[place] [address] Erythrocyte distribution width (RBC) [Ratio] 13.6 % Normal 11.5-15.5 [facility] ([place] Comment on above: Performed By: #### C BC, ADIFF, ANEU, BMP, GFR ####[place] [address] Hematocrit (Bld) [Volume fraction] 28.1 % Low 34.0-46.0 [facility] ([place] Comment on above: Performed By: #### C BC, ADIFF, ANEU, BMP, GFR ####[place] [address] Hemoglobin (Bld) [Mass/Vol] 9.4 G/dL Low 12.0-16.0 [facility] ([place] Comment on above: Performed By: #### C BC, ADIFF, ANEU, BMP, GFR ####[place] [id number] MCH (RBC) [Entitic mass] 32.4 pg Normal 27.0-33.0 [facility] ([place]) Comment on above: Performed By: #### C BC, ADIFF, ANEU, BMP, GFR ####[address] [address] MCHC (RBC) [Mass/Vol] 33.5 G/dL Normal 32.0-36.0 [facility] ([place] Comment on above: Performed By: #### C BC, ADIFF, ANEU, BMP, GFR ####[address] [address] MCV (RBC) [Entitic vol] 96.7 fL Normal 80.0-99.0 [facility] ([place] Comment on above: Performed By: #### C BC, ADIFF, ANEU, BMP, GFR ####[address] [address] Platelet mean volume (Bld) [Entitic vol] 7.5 fL Normal 6.6-10.5 [facility] ([place]) Comment on above: Performed By: #### C BC, ADIFF, ANEU, BMP, GFR ####[address] [address] Platelets (Bld) [#/Vol] 257 10 3/mcL Normal 150-450 [facility] ([place]) Comment on above: Performed By: #### C BC, ADIFF, ANEU, BMP, GFR ####[address] [address] RBC (Bld) [#/Vol] 2.90 10 6/mcL Low 4.10-5.30 [facility] ([place]) Comment on above: Performed By: #### C BC, ADIFF, ANEU, BMP, GFR ####[address] [address] WBC (Bld) [#/Vol] 6.50 10 3/mcL Normal 4.50-10.80 [facility] ([place] Comment on above: Performed By: #### C BC, ADIFF, ANEU, BMP, GFR ####[address] [address] Erythrocyte distribution width (RBC) [Ratio] 13.8 % Normal 11.5-15.5 [facility] ([place] Comment on above: Performed By: #### C BC, ADIFF, ANEU #### [address] [address] #### BMP, GFR #### [address] [address] Hematocrit (Bld) [Volume fraction] 27.4 % Low 34.0-46.0 [facility] ([place] Comment on above: Performed By: #### C BC, ADIFF, ANEU #### [address] [address] #### BMP, GFR #### [place] [address] Hemoglobin (Bld) [Mass/Vol] 9.4 G/dL Low 12.0-16.0 [facility] ([place] Comment on above: Performed By: #### C BC, ADIFF, ANEU #### [place] [address] #### BMP, GFR #### [place] [phone] MCH (RBC) [Entitic mass] 30.3 pg Normal 27.0-33.0 [facility] ([place] Comment on above: Performed By: #### C RAGHU, ADIFF, ANEU #### [place] [address] #### BMP, GFR #### [place] [address] MCHC (RBC) [Mass/Vol] 34.4 G/dL Normal 32.0-36.0 [facility] ([place] Comment on above: Performed By: #### C RAGHU, ADIFF, ANEU #### [place] [address] #### BMP, GFR #### [place] [phone] MCV (RBC) [Entitic vol] 88.2 fL Normal 80.0-99.0 [facility] ([place] Comment on above: Performed By: #### C BC, ADIFF, ANEU #### [place] [address] #### BMP, GFR #### [place] [phone] Platelet mean volume (Bld) [Entitic vol] 8.1 fL Normal 6.6-10.5 [facility] ([place]) Comment on above: Performed By: #### C RAGHU, ADIFF, ANEU #### [address] [address] #### BMP, GFR #### [address] [address] Platelets (Bld) [#/Vol] 188 10 3/mcL Normal 150-450 [facility] ([place]) Comment on above: Performed By: #### C BC, ADIFF, ANEU #### [place] [address] #### BMP, GFR #### [address] [address] RBC (Bld) [#/Vol] 3.11 10 6/mcL Low 4.10-5.30 [facility] ([place] Comment on above: Performed By: #### C BC, ADIFF, ANEU #### [place] [address] #### BMP, GFR #### [place] [phone] WBC (Bld) [#/Vol] 6.70 10 3/mcL Normal 4.50-10.80 [facility] ([place] Comment on above: Performed By: #### C BC, ADIFF, ANEU #### [place] [address] #### BMP, GFR #### [address] [address] CMPon 06-07-2019 Albumin/Globulin [Mass ratio] 0.8 {ratio} Low 0.9-1.6 [facility] ([place]) Comment on above: Performed By: #### C BC, ADIFF, ANEU, CMP, GFR ####[place] [address] ALP [Catalytic activity/Vol] 47 U/L Normal 38-126 [facility] ([place]) Comment on above: Performed By: #### C BC, ADIFF, ANEU, CMP, GFR ####[place] [address] Bili Total 0.5 mg/dL Normal 0.2-1.2 [facility] ([place]) Comment on above: Performed By: #### C BC, ADIFF, ANEU, CMP, GFR ####[address] [address] Creatinine [Mass/Vol] 0.66 mg/dL Normal 0.60-1.40 [facility] ([place]) Comment on above: Performed By: #### C BC, ADIFF, ANEU, CMP, GFR ####[address] [address] Globulin (S) [Mass/Vol] 2.7 G/dL Normal 1.5-3.8 [facility] ([place]) Comment on above: Performed By: #### C BC, ADIFF, ANEU, CMP, GFR ####[address] [address] Protein [Mass/Vol] 4.8 G/dL Low 6.0-8.5 [facility] ([place]) Comment on above: Performed By: #### C BC, ADIFF, ANEU, CMP, GFR ####[address] [address] Urea nitrogen/Creatinine [Mass ratio] 4.5 ratio Low 10.0-22.0 [facility] ([place]) Comment on above: Performed By: #### C BC, ADIFF, ANEU, CMP, GFR ####[address] [address] Albumin [Mass/Vol] 2.1 G/dL Low 3.2-4.8 [facility] ([place]) Comment on above: Performed By: #### C BC, ADIFF, ANEU, CMP, GFR ####[address] [address] ALT [Catalytic activity/Vol] 16 U/L Normal 12-55 [facility] ([place]) Comment on above: Performed By: #### C BC, ADIFF, ANEU, CMP, GFR ####[address] [address] AST [Catalytic activity/Vol] 11 U/L Normal 8-34 [facility] ([place]) Comment on above: Performed By: #### C BC, ADIFF, ANEU, CMP, GFR ####[address] [address] Calcium [Mass/Vol] 7.8 mg/dL Low 8.4-10.1 [facility] ([place]) Comment on above: Performed By: #### C BC, ADIFF, ANEU, CMP, GFR ####[address] [address] Chloride [Moles/Vol] 113 mmol/L High 98-110 [facility] ([place]) Comment on above: Performed By: #### C BC, ADIFF, ANEU, CMP, GFR ####[address] [address] CO2 [Moles/Vol] 30 mmol/L Normal 22-32 [facility] ([place]) Comment on above: Performed By: #### C BC, ADIFF, ANEU, CMP, GFR ####[address] [address] Electrolyte Balance 5.0 mEq/L Normal 4.0-15.0 [facility] ([place]) Comment on above: Performed By: #### C BC, ADIFF, ANEU, CMP, GFR ####[address] [address] Glucose [Mass/Vol] 124 mg/dL High 70-110 [facility] ([place]) Comment on above: Performed By: #### C BC, ADIFF, ANEU, CMP, GFR ####[address] [address] Potassium [Moles/Vol] 3.7 mmol/L Normal 3.5-5.0 [facility] ([place]) Comment on above: Performed By: #### C BC, ADIFF, ANEU, CMP, GFR ####[address] [address] Sodium [Moles/Vol] 148 mmol/L High 136-145 [facility] ([place]) Comment on above: Performed By: #### C BC, ADIFF, ANEU, CMP, GFR ####[address] [address] Urea nitrogen [Mass/Vol] 3.0 mg/dL Low 8.0-22.0 [facility] ([place] Comment on above: Performed By: #### C BC, ADIFF, ANEU, CMP, GFR ####[address] [address] HHon 06-07-2019 Hematocrit (Bld) [Volume fraction] 27.4 % Low 34.0-46.0 [facility] ([place]) Comment on above: Performed By: #### H H ####[place] [address] Hemoglobin (Bld) [Mass/Vol] 9.6 G/dL Low 12.0-16.0 [facility] ([place] Comment on above: Performed By: #### H H ####[place] [address] XR CHEST 1 VIEWon 06-07-2019 XR CHEST [...] AM Sign Date: 06/07/2019 7:43:21 AM Normal [facility] ([place]) .Auto Diffon 06-06-2019 Ammonia (P) [Mass/Vol] 0.70 10 3/mcL Normal 0.09-1.40 [facility] ([place]) Comment on above: Performed By: #### C BC, ADIFF, ANEU #### [address] [address] #### BMP, GFR #### [address] [address] Basophils (Bld) [#/Vol] 0.00 10 3/mcL Normal 0.00-0.27 [facility] ([place]) Comment on above: Performed By: #### C BC, ADIFF, ANEU #### [address] [address] #### BMP, GFR #### [address] [address] Basophils/100 WBC (Bld) 0.4 % Normal 0.0-2.5 [facility] ([place] Comment on above: Performed By: #### C BC, ADIFF, ANEU #### [address] [address] #### BMP, GFR #### [address] [address] Eosinophils (Bld) [#/Vol] 0.10 10 3/mcL Normal 0.00-0.65 [facility] ([place]) Comment on above: Performed By: #### C BC, ADIFF, ANEU #### [address] [address] #### BMP, GFR #### [address] [address] Eosinophils/100 WBC (Bld) 0.8 % Normal 0.0-6.0 [facility] ([place]) Comment on above: Performed By: #### C BC, ADIFF, ANEU #### [address] [address] #### BMP, GFR #### [address] [address] Lymphocytes (Bld) [#/Vol] 0.70 10 3/mcL Low 0.90-4.32 [facility] ([place] Comment on above: Performed By: #### C BC, ADIFF, ANEU #### [address] [address] #### BMP, GFR #### [address] [address] Lymphocytes/100 WBC (Bld) 9.2 % Low 20.0-40.0 [facility] ([place]) Comment on above: Performed By: #### C BC, ADIFF, ANEU #### [address] [address] #### BMP, GFR #### [facility] [address] [place] [address] Monocytes/100 WBC (Bld) 9.6 % Normal 2.0-13.0 [facility] ([place]) Comment on above: Performed By: #### C BC, ADIFF, ANEU #### [address] [address] #### BMP, GFR #### [facility] [address] [place] [address] Neutrophils/100 WBC (Bld) 80.0 % High 50.0-75.0 [facility] ([place]) Comment on above: Performed By: #### C BC, ADIFF, ANEU #### [address] [address] #### BMP, GFR #### [address] [address] .GFRon 06-06-2019 GFR Non- >60 Normal [facility] ([place]) Comment on above: Result Comment: GFR Population [...] #### C BC, ADIFF, ANEU #### [address] [address] #### BMP, GFR #### [address] [address] GFR >60 Normal [facility] ([place]) Comment on above: Result Comment: GFR Population [...] Performed By: #### C BCSTEPHANIE, ANEU #### [place] [address] #### BMP, GFR #### [address] [address] .NEUABSon 06-06-2019 Neutrophils (Bld) [#/Vol] 6.20 10 3/mcL Normal 2.25-8.10 [facility] ([place] Comment on above: Performed By: #### C STEPHNAIE KRISHNAMURTHY, ANEU #### [place] [address] #### BMP, GFR #### [address] [address] BMPon 06-06-2019 Calcium [Mass/Vol] 8.0 mg/dL Low 8.4-10.1 [facility] ([place]) Comment on above: Performed By: #### STEPHANIE JOHNSON, ANEU #### [place] [address] #### BMP, GFR #### [address] [address] Chloride [Moles/Vol] 104 mmol/L Normal 98-110 [facility] ([place] Comment on above: Performed By: #### Lio BCSTEPHANIE, ANEU #### [place] [id number] #### BMP, GFR #### [address] [address] CO2 [Moles/Vol] 26 mmol/L Normal 22-32 [facility] ([place]) Comment on above: Performed By: #### C BC, ADIFF, ANEU #### [address] [address] #### BMP, GFR #### [address] [address] Creatinine [Mass/Vol] 0.66 mg/dL Normal 0.50-1.20 [facility] ([place]) Comment on above: Performed By: #### C BC, ADIFF, ANEU #### [address] [address] #### BMP, GFR #### [address] [address] Electrolyte Balance 10.0 mEq/L Normal 4.0-15.0 [facility] ([place]) Comment on above: Performed By: #### C BC, ADIFF, ANEU #### [place] [address] #### BMP, GFR #### [address] [address] Glucose [Mass/Vol] 104 mg/dL Normal 82-115 [facility] ([place]) Comment on above: Performed By: #### C BC, ADIFF, ANEU #### [address] [address] #### BMP, GFR #### [address] [address] Potassium [Moles/Vol] 3.2 mmol/L Low 3.5-5.0 [facility] ([place] Comment on above: Performed By: #### C BC, ADIFF, ANEU #### [address] [address] #### BMP, GFR #### [address] [address] Sodium [Moles/Vol] 140 mmol/L Normal 136-145 [facility] ([place]) Comment on above: Performed By: #### C BC, ADIFF, ANEU #### [place] [id number] #### BMP, GFR #### [address] [address] Urea nitrogen [Mass/Vol] 10.0 mg/dL Normal 8.0-22.0 [facility] ([place] Comment on above: Performed By: #### C BC, ADIFF, ANEU #### [address] [address] #### BMP, GFR #### [address] [address] Urea nitrogen/Creatinine [Mass ratio] 15.2 ratio Normal 10.0-22.0 [facility] ([place] Comment on above: Performed By: #### C BC, ADIFF, ANEU #### [place] [address] #### BMP, GFR #### [address] [address] CBCon 06-06-2019 Erythrocyte distribution width (RBC) [Ratio] 13.6 % Normal 11.5-15.5 [facility] ([place]) Comment on above: Performed By: #### C BC, ADIFF, ANEU #### [place] [address] #### BMP, GFR #### [address] [address] Hematocrit (Bld) [Volume fraction] 27.0 % Low 34.0-46.0 [facility] ([place] Comment on above: Performed By: #### C BC, ADIFF, ANEU #### [place] [id number] #### BMP, GFR #### [address] [address] Hemoglobin (Bld) [Mass/Vol] 9.2 G/dL Low 12.0-16.0 [facility] ([place] Comment on above: Performed By: #### C BC, ADIFF, ANEU #### [place] [address] #### BMP, GFR #### [address] [address] MCH (RBC) [Entitic mass] 30.0 pg Normal 27.0-33.0 [facility] ([place] Comment on above: Performed By: #### C STEPHANIE KRISHNAMURTHY, ANEU #### [address] [address] #### BMP, GFR #### [address] [address] MCHC (RBC) [Mass/Vol] 34.1 G/dL Normal 32.0-36.0 [facility] ([place]) Comment on above: Performed By: #### C STEPHANIE KRISHNAMURTHY, ANEU #### [place] [address] #### BMP, GFR #### [address] [address] MCV (RBC) [Entitic vol] 88.0 fL Normal 80.0-99.0 [facility] ([place] Comment on above: Performed By: #### C STEPHANIE KRISHNAMURTHY, ANEU #### [place] [address] #### BMP, GFR #### [address] [address] Platelet mean volume (Bld) [Entitic vol] 8.2 fL Normal 6.6-10.5 [facility] ([place]) Comment on above: Performed By: #### C STEPHANIE KRISHNAMURTHY, ANEU #### [place] [address] #### BMP, GFR #### [address] [address] Platelets (Bld) [#/Vol] 155 10 3/mcL Normal 150-450 [facility] ([place]) Comment on above: Performed By: #### C STEPHANIE KRISHNAMURTHY, ANEU #### [place] [id number] #### BMP, GFR #### [address] [address] RBC (Bld) [#/Vol] 3.07 10 6/mcL Low 4.10-5.30 [facility] ([place] Comment on above: Performed By: #### C STEPHANIE KRISHNAMURTHY ANEU #### [address] [address] #### BMP, GFR #### [address] [address] WBC (Bld) [#/Vol] 7.70 10 3/mcL Normal 4.50-10.80 [facility] ([place] Comment on above: Performed By: #### C STEPHANIE KRISHNAMURTHY ANEU #### [address] [address] #### BMP, GFR #### [address] [address] XR CHEST 1 VIEWon 06-06-2019 XR CHEST [...] AM Sign Date: 06/06/2019 6:40:06 AM Normal [facility] ([place]) .Auto Diffon 06-05-2019 Ammonia (P) [Mass/Vol] 1.20 10 3/mcL Normal 0.09-1.40 [facility] ([place]) Comment on above: Performed By: #### C STEPHANIE KRISHNAMURTHY ANEU #### [address] [address] #### BMP, GFR #### [address] [address] Basophils (Bld) [#/Vol] 0.00 10 3/mcL Normal 0.00-0.27 [facility] ([place]) Comment on above: Performed By: #### C BC, ADIFF, ANEU #### [address] [address] #### BMP, GFR #### [address] [address] Basophils/100 WBC (Bld) 0.4 % Normal 0.0-2.5 [facility] ([place] Comment on above: Performed By: #### C BC, ADIFF, ANEU #### [address] [address] #### BMP, GFR #### [address] [address] Eosinophils (Bld) [#/Vol] 0.10 10 3/mcL Normal 0.00-0.65 [facility] ([place] Comment on above: Performed By: #### C BC, ADIFF, ANEU #### [place] [address] #### BMP, GFR #### [address] [address] Eosinophils/100 WBC (Bld) 0.6 % Normal 0.0-6.0 [facility] ([place]) Comment on above: Performed By: #### C BC, ADIFF, ANEU #### [place] [address] #### BMP, GFR #### [address] [address] Lymphocytes (Bld) [#/Vol] 1.10 10 3/mcL Normal 0.90-4.32 [facility] ([place] Comment on above: Performed By: #### C BC, ADIFF, ANEU #### [place] [address] #### BMP, GFR #### [address] [address] Lymphocytes/100 WBC (Bld) 9.5 % Low 20.0-40.0 [facility] ([place]) Comment on above: Performed By: #### C BC, ADIFF, ANEU #### [address] [address] #### BMP, GFR #### [facility] [address] [place] [address] Monocytes/100 WBC (Bld) 9.9 % Normal 2.0-13.0 [facility] ([place]) Comment on above: Performed By: #### C BC, ADIFF, ANEU #### [address] [address] #### BMP, GFR #### [facility] [address] [place] [address] Neutrophils/100 WBC (Bld) 79.6 % High 50.0-75.0 [facility] ([place]) Comment on above: Performed By: #### C BC, ADIFF, ANEU #### [address] [address] #### BMP, GFR #### [address] [address] .GFRon 06-05-2019 GFR >60 Normal [facility] ([place] Comment on above: Result Comment: GFR Population [...] #### C BC, ADIFF, ANEU #### [address] [address] #### BMP, GFR #### [address] [address] GFR Non- >60 Normal [facility] ([place]) Comment on above: Result Comment: GFR Population [...] By: #### C BC, ADIFF, ANEU #### [place] [address] #### BMP, GFR #### [place] [id number] .Morphon 06-05-2019 Platelets (Bld) [#/Vol] Slt Decreased Normal [facility] ([place]) Comment on above: Performed By: #### C BC, ADIFF, ANEU #### [place] [address] #### BMP, GFR #### [place] [address] RBC morphology finding Nom (Bld) Normal Normal [facility] ([place]) Comment on above: Performed By: #### C BC, ADIFF, ANEU #### [place] [address] #### BMP, GFR #### [place] [address] .NEUABSon 06-05-2019 Neutrophils (Bld) [#/Vol] 9.30 10 3/mcL High 2.25-8.10 [facility] ([place]) Comment on above: Performed By: #### C BC, ADIFF, ANEU #### [place] [address] #### BMP, GFR #### [place] [address] BMPon 06-05-2019 Calcium [Mass/Vol] 8.2 mg/dL Low 8.4-10.1 [facility] ([place]) Comment on above: Performed By: #### C BC, ADIFF, ANEU #### [address] [address] #### BMP, GFR #### [address] [address] CO2 [Moles/Vol] 23 mmol/L Normal 22-32 [facility] ([place]) Comment on above: Performed By: #### C BC, ADIFF, ANEU #### [address] [address] #### BMP, GFR #### [address] [address] Creatinine [Mass/Vol] 0.65 mg/dL Normal 0.50-1.20 [facility] ([place]) Comment on above: Performed By: #### Lio BCBRYANIFF, ANEU #### [address] [address] #### BMP, GFR #### [address] [address] Electrolyte Balance 11.0 mEq/L Normal 4.0-15.0 [facility] ([place]) Comment on above: Performed By: #### C BCBRYANIFF, ANEU #### [address] [address] #### BMP, GFR #### [address] [address] Glucose [Mass/Vol] 114 mg/dL Normal 82-115 [facility] ([place]) Comment on above: Performed By: #### C BC, ADIFF, ANEU #### [address] [address] #### BMP, GFR #### [address] [address] Potassium [Moles/Vol] 4.2 mmol/L Normal 3.5-5.0 [facility] ([place] Comment on above: Performed By: #### C BC, ADIFF, ANEU #### [address] [address] #### BMP, GFR #### [address] [address] Urea nitrogen [Mass/Vol] 9.0 mg/dL Normal 8.0-22.0 [facility] ([place]) Comment on above: Performed By: #### C BC, ADIFF, ANEU #### [address] [address] #### BMP, GFR #### [address] [address] Urea nitrogen/Creatinine [Mass ratio] 13.8 ratio Normal 10.0-22.0 [facility] ([place]) Comment on above: Performed By: #### C BC, ADIFF, ANEU #### [address] [address] #### BMP, GFR #### [address] [address] Chloride [Moles/Vol] 107 mmol/L Normal 98-110 [facility] ([place]) Comment on above: Performed By: #### C BC, ADIFF, ANEU #### [place] [address] #### BMP, GFR #### [address] [address] Sodium [Moles/Vol] 141 mmol/L Normal 136-145 [facility] ([place]) Comment on above: Performed By: #### C BC, ADIFF, ANEU #### [address] [address] #### BMP, GFR #### [address] [address] CBCon 06-05-2019 Platelet mean volume (Bld) [Entitic vol] 9.1 fL Normal 6.6-10.5 [facility] ([place]) Comment on above: Performed By: #### C BC, ADIFF, ANEU #### [place] [address] #### BMP, GFR #### [address] [address] Platelets (Bld) [#/Vol] 143 10 3/mcL Low 150-450 [facility] ([place]) Comment on above: Performed By: #### C BC, ADIFF, ANEU #### [address] [address] #### BMP, GFR #### [address] [address] Erythrocyte distribution width (RBC) [Ratio] 14.0 % Normal 11.5-15.5 [facility] ([place]) Comment on above: Performed By: #### C RAGHU, STEPHANIE, ANEU #### [address] [address] #### BMP, GFR #### [address] [address] Hematocrit (Bld) [Volume fraction] 30.7 % Low 34.0-46.0 [facility] ([place] Comment on above: Performed By: #### C RAGHU, ADIFF, ANEU #### [place] [address] #### BMP, GFR #### [place] [phone] Hemoglobin (Bld) [Mass/Vol] 10.7 G/dL Low 12.0-16.0 [facility] ([place] Comment on above: Performed By: #### C RAGHU, ADIFF, ANEU #### [place] [address] #### BMP, GFR #### [address] [address] MCH (RBC) [Entitic mass] 30.4 pg Normal 27.0-33.0 [facility] ([place]) Comment on above: Performed By: #### C BC, ADIFF, ANEU #### [address] [address] #### BMP, GFR #### [place] [id number] MCHC (RBC) [Mass/Vol] 34.8 G/dL Normal 32.0-36.0 [facility] ([place]) Comment on above: Performed By: #### C BC, ADIFF, ANEU #### [place] [address] #### BMP, GFR #### [address] [address] MCV (RBC) [Entitic vol] 87.6 fL Normal 80.0-99.0 [facility] ([place]) Comment on above: Performed By: #### C BC, ADIFF, ANEU #### [place] [address] #### BMP, GFR #### [place] [address] RBC (Bld) [#/Vol] 3.50 10 6/mcL Low 4.10-5.30 [facility] ([place]) Comment on above: Performed By: #### C BC, ADIFF, ANEU #### [place] [address] #### BMP, GFR #### [address] [address] WBC (Bld) [#/Vol] 11.60 10 3/mcL High 4.50-10.80 [facility] ([place]) Comment on above: Performed By: #### C BC, ADIFF, ANEU #### [place] [address] #### BMP, GFR #### [place] [address] XR CHEST 1 VIEWon 06-05-2019 XR CHEST [...] AM Sign Date: 06/05/2019 7:45:20 AM Normal [facility] ([place]) XR CHEST 1 VIEW ORIGINAL PORTABLE UPRIGHT [...] PM Sign Date: 06/04/2019 11:53:30 PM Normal [facility] ([place]) .Auto Diffon 06-04-2019 Ammonia (P) [Mass/Vol] 0.90 10 3/mcL Normal 0.09-1.40 [facility] ([place]) Comment on above: Performed By: #### C BCSTEPHANIE, ANEU #### [address] [address] #### BMP, GFR #### [address] [address] Basophils (Bld) [#/Vol] 0.00 10 3/mcL Normal 0.00-0.27 [facility] ([place] Comment on above: Performed By: #### C BC, ADIFF, ANEU #### [address] [address] #### BMP, GFR #### [address] [address] Basophils/100 WBC (Bld) 0.3 % Normal 0.0-2.5 [facility] ([place] Comment on above: Performed By: #### C BC, ADIFF, ANEU #### [address] [address] #### BMP, GFR #### [address] [address] Eosinophils (Bld) [#/Vol] 0.00 10 3/mcL Normal 0.00-0.65 [facility] ([place]) Comment on above: Performed By: #### C BC, ADIFF, ANEU #### [address] [address] #### BMP, GFR #### [address] [address] Eosinophils/100 WBC (Bld) 0.1 % Normal 0.0-6.0 [facility] ([place]) Comment on above: Performed By: #### C BC, ADIFF, ANEU #### [address] [address] #### BMP, GFR #### [address] [address] Lymphocytes (Bld) [#/Vol] 0.90 10 3/mcL Normal 0.90-4.32 [facility] ([place] Comment on above: Performed By: #### C BC, ADIFF, ANEU #### [address] [address] #### BMP, GFR #### [address] [address] Lymphocytes/100 WBC (Bld) 10.3 % Low 20.0-40.0 [facility] ([place] Comment on above: Performed By: #### C BC, ADIFF, ANEU #### [address] [address] #### BMP, GFR #### [address] [address] Monocytes/100 WBC (Bld) 9.5 % Normal 2.0-13.0 [facility] ([place] Comment on above: Performed By: #### C BC, ADIFF, ANEU #### [address] [address] #### BMP, GFR #### [address] [address] Neutrophils/100 WBC (Bld) 79.8 % High 50.0-75.0 [facility] ([place] Comment on above: Performed By: #### C BC, ADIFF, ANEU #### [address] [address] #### BMP, GFR #### [address] [address] .GFRon 06-04-2019 GFR >60 Normal [facility] ([place]) Comment on above: Result Comment: GFR Population [...] #### C BC, ADIFF, ANEU #### [address] [address] #### BMP, GFR #### [address] [address] GFR Non- >60 Normal [facility] ([place] Comment on above: Result Comment: GFR Population [...] By: #### C BC, ADIFF, ANEU #### [place] [address] #### BMP, GFR #### [address] [address] .NEUABSon 06-04-2019 Neutrophils (Bld) [#/Vol] 7.20 10 3/mcL Normal 2.25-8.10 [facility] ([place] Comment on above: Performed By: #### C BCBRYANIFF, ANEU #### [place] [address] #### BMP, GFR #### [place] [address] BMPon 06-04-2019 Calcium [Mass/Vol] 8.8 mg/dL Normal 8.4-10.1 [facility] ([place]) Comment on above: Performed By: #### C BCBRYANIFF, ANEU #### [place] [address] #### BMP, GFR #### [place] [phone] Chloride [Moles/Vol] 109 mmol/L Normal 98-110 [facility] ([place] Comment on above: Performed By: #### C BC, ADIFF, ANEU #### [place] [address] #### BMP, GFR #### [place] [phone] CO2 [Moles/Vol] 25 mmol/L Normal 22-32 [facility] ([place]) Comment on above: Performed By: #### C BC, ADIFF, ANEU #### [address] [address] #### BMP, GFR #### [address] [address] Creatinine [Mass/Vol] 0.82 mg/dL Normal 0.50-1.20 [facility] ([place] Comment on above: Performed By: #### C BC, ADIFF, ANEU #### [address] [address] #### BMP, GFR #### [address] [address] Electrolyte Balance 8.0 mEq/L Normal 4.0-15.0 [facility] ([place]) Comment on above: Performed By: #### C BC, ADIFF, ANEU #### [place] [address] #### BMP, GFR #### [address] [address] Glucose [Mass/Vol] 132 mg/dL High 82-115 [facility] ([place]) Comment on above: Performed By: #### C BC, ADIFF, ANEU #### [place] [address] #### BMP, GFR #### [address] [address] Potassium [Moles/Vol] 4.3 mmol/L Normal 3.5-5.0 [facility] ([place] Comment on above: Performed By: #### C BC, ADIFF, ANEU #### [place] [address] #### BMP, GFR #### [address] [address] Sodium [Moles/Vol] 142 mmol/L Normal 136-145 [facility] ([place]) Comment on above: Performed By: #### C BC, ADIFF, ANEU #### [address] [address] #### BMP, GFR #### [address] [address] Urea nitrogen [Mass/Vol] 12.0 mg/dL Normal 8.0-22.0 [facility] ([place] Comment on above: Performed By: #### C BC, ADIFF, ANEU #### [address] [address] #### BMP, GFR #### [address] [address] Urea nitrogen/Creatinine [Mass ratio] 14.6 ratio Normal 10.0-22.0 [facility] ([place]) Comment on above: Performed By: #### C BC, ADIFF, ANEU #### [address] [address] #### BMP, GFR #### [address] [address] CBCon 06-04-2019 Erythrocyte distribution width (RBC) [Ratio] 14.0 % Normal 11.5-15.5 [facility] ([place] Comment on above: Performed By: #### C RAGHU ADIFF, ANEU #### [place] [address] #### BMP, GFR #### [address] [address] Hematocrit (Bld) [Volume fraction] 38.5 % Normal 34.0-46.0 [facility] ([place] Comment on above: Performed By: #### C RAGHU, ADIFF, ANEU #### [place] [address] #### BMP, GFR #### [place] [address] Hemoglobin (Bld) [Mass/Vol] 13.0 G/dL Normal 12.0-16.0 [facility] ([place] Comment on above: Performed By: #### C BC, ADIFF, ANEU #### [place] [address] #### BMP, GFR #### [address] [address] MCH (RBC) [Entitic mass] 30.1 pg Normal 27.0-33.0 [facility] ([place] Comment on above: Performed By: #### C BC, ADIFF, ANEU #### [address] [address] #### BMP, GFR #### [address] [address] MCHC (RBC) [Mass/Vol] 33.7 G/dL Normal 32.0-36.0 [facility] ([place] Comment on above: Performed By: #### C BC, ADIFF, ANEU #### [place] [address] #### BMP, GFR #### [address] [address] MCV (RBC) [Entitic vol] 89.5 fL Normal 80.0-99.0 [facility] ([place] Comment on above: Performed By: #### C BC, ADIFF, ANEU #### [place] [address] #### BMP, GFR #### [address] [address] Platelet mean volume (Bld) [Entitic vol] 7.6 fL Normal 6.6-10.5 [facility] ([place]) Comment on above: Performed By: #### C BC, ADIFF, ANEU #### [address] [address] #### BMP, GFR #### [address] [address] Platelets (Bld) [#/Vol] 197 10 3/mcL Normal 150-450 [facility] ([place]) Comment on above: Performed By: #### C BC, ADIFF, ANEU #### [place] [address] #### BMP, GFR #### [address] [address] RBC (Bld) [#/Vol] 4.31 10 6/mcL Normal 4.10-5.30 [facility] ([place] Comment on above: Performed By: #### C BC, ADIFF, ANEU #### [place] [address] [place], [place] [address] #### BMP, GFR #### [address] [address] WBC (Bld) [#/Vol] 9.00 10 3/mcL Normal 4.50-10.80 [facility] ([place] Comment on above: Performed By: #### C BC, ADIFF, ANEU #### [place] [address] [place], [place] [address] #### BMP, GFR #### [address] [address] [address] ANKLE W/O CONTRAST RIGHTo n 06-04-2019 [...] PM Sign Date: 06/04/2019 12:03:00 AM Normal [facility] ([place] CT WRIST W/O CONTRAST RIGHTo n 06-04-2019 [...] AM Sign Date: 06/04/2019 12:04:55 AM Normal [facility] ([place]) PROon 06-04-2019 INR Coag (PPP) [Relative time] 1.0 {INR} Normal [facility] ([place]) Comment on above: Result Comment: [employer] (CHEST, 1992, 102:312S-25S) recommended therapeutic range for oral anticoagulant therapy is: LOW RISK: Prophylaxis of venous thrombosis INR: 2.0-3.0 Treatment of pulmonary embolism 2.0-3.0 Prevention of systemic embolism 2.0-3.0 HIGH RISK: Mechanical prosthetic valves 2.5-3.5 Performed By: #### C BC, ADIFF, ANEU #### [facility] [address] [place], [place] [address] #### BMP, GFR #### [address] [address] PT Coag (PPP) [Time] 12.0 s Normal 9.0-14.6 [facility] ([place]) Comment on above: Result Comment: Effe ctive 03/28/08, Protime results may be affected by some antibiotics (i.e. Ciprofloxacin, Azithromycin, Bactrim) which may potentiate the action of oral anticoagulants, with further increases in Protime/INR. Performed By: #### C BC, ADIFF, ANEU #### [address] [address] #### BMP, GFR #### [place] [address] TABOon 06-04-2019 ABO/Rh Interp Negative [facility] ([place]) Comment on above: Performed By: #### C BC, ADIFF, ANEU #### [address] [address] #### BMP, GFR #### [place] [address] TABSon 06-04-2019 Antibody Screen Tango Negative Normal [facility] ([place]) Comment on above: Performed By: #### C BC, ADIFF, ANEU #### [address] [address] #### BMP, GFR #### [place] [address] XR CHEST 1 VIEWon 06-04-2019 XR CHEST [...] AM Sign Date: 06/04/2019 5:25:45 AM Normal [facility] ([place]) X[place] FLUORO < 1HR TECH TIMEon 06-04-2019 XR FLUORO < 1HR TECH TIME ORIGINAL Intraoperative fluoroscopy and image intensifier views of the right ankle Clinical Statement: rt ankle fx, internal fixation Comparison: Radiographs 06/03/2019 FINDINGS: Technical Details: Tech Time - < 1hr\X0D0A\1120-2p total for both ; C-Arm # - 7; Total Dose - .85mGy; Images - 6; Lock Expert - nmk; History - rt ankle fx, [...] PM Sign Date: 06/04/2019 3:30:03 PM Normal [facility] ([place]) XR FLUORO 1-2 HRS TECH TIMEo n 06-04-2019 XR FLUORO 1-2 HRS TECH TIME ORIGINAL Intraoperative fluoroscopy and image intensifier views of the right wrist Clinical Statement: rt wrist fx, internal fixation Comparison: 06/03/2019 FINDINGS: Technical Details: Tech Time - 1120-2p total for both exams; C-Arm # - 7; Total Dose - 1.71mGy; Images - 5; Lock Expert - nmk; History - rt wrist fx; [...] PM Sign Date: 06/04/2019 3:36:44 PM Normal [facility] ([place]) XR HAND MINIMUM 3 VIEWS LEFT on [...] AM Sign Date: 06/04/2019 9:53:38 AM Normal [facility] ([place]) .Auto Diffon 06-03-2019 Ammonia (P) [Mass/Vol] 0.60 10 3/mcL Normal 0.15-1.00 [facility] ([place]) Comment on above: Performed By: #### C BCSTEPHANIE, ANEU #### [place] [address] #### BMP, GFR #### [address] [address] Basophils (Bld) [#/Vol] 0.00 10 3/mcL Normal 0.00-0.19 [facility] ([place]) Comment on above: Performed By: #### Lio BCSTEPHANIE, ANEU #### [place] [address] #### BMP, GFR #### [address] [address] Basophils/100 WBC (Bld) 0.4 % Normal 0.0-2.5 [facility] ([place] Comment on above: Performed By: #### Lio BC ADIFF, ANEU #### [place] [address] #### BMP, GFR #### [address] [address] Eosinophils (Bld) [#/Vol] 0.10 10 3/mcL Normal 0.00-0.40 [facility] ([place] Comment on above: Performed By: #### C BC ADIFF, ANEU #### [place] [address] #### BMP, GFR #### [address] [address] Eosinophils/100 WBC (Bld) 1.0 % Normal 0.0-7.0 [facility] ([place]) Comment on above: Performed By: #### C BC, ADIFF, ANEU #### [address] [address] #### BMP, GFR #### [address] [address] Lymphocytes (Bld) [#/Vol] 1.20 10 3/mcL Normal 0.77-3.85 [facility] ([place] Comment on above: Performed By: #### C BC, ADIFF, ANEU #### [address] [address] #### BMP, GFR #### [address] [address] Lymphocytes/100 WBC (Bld) 12.6 % Normal 10.0-50.0 [facility] ([place] Comment on above: Performed By: #### C BC, ADIFF, ANEU #### [address] [address] #### BMP, GFR #### [address] [address] Monocytes/100 WBC (Bld) 6.3 % Normal 1.7-13.0 [facility] ([place]) Comment on above: Performed By: #### C BC, ADIFF, ANEU #### [address] [address] #### BMP, GFR #### [address] [address] Neutrophils/100 WBC (Bld) 79.7 % Normal 37.0-80.0 [facility] ([place] Comment on above: Performed By: #### C BC, ADIFF, ANEU #### [address] [address] #### BMP, GFR #### [address] [address] .GFRon 06-03-2019 GFR 78 ml/min/1.73sqm Normal [facility] ([place]) Comment on above: Result Comment: GFR Population [...] #### C BC, ADIFF, ANEU #### [address] [address] #### BMP, GFR #### [address] [address] GFR Non- 64 ml/min/1.73sqm Normal [facility] ([place]) Comment on above: Result Comment: GFR Population [...] #### C BC, ADIFF, ANEU #### [address] [address] #### BMP, GFR #### [address] [address] .NEUABSon 06-03-2019 Neutrophils (Bld) [#/Vol] 7.90 10 3/mcL High 2.85-6.16 [facility] ([place]) Comment on above: Performed By: #### C BC, BRYANIFF, ANEU #### [address] [address] #### BMP, GFR #### [address] [address] BMPon 06-03-2019 Calcium [Mass/Vol] 9.2 mg/dL Normal 8.4-10.2 [facility] ([place]) Comment on above: Performed By: #### C BC, ADIFF, ANEU #### [address] [address] #### BMP, GFR #### [address] [address] Chloride [Moles/Vol] 104 mmol/L Normal 98-107 [facility] ([place]) Comment on above: Performed By: #### C BC, ADIFF, ANEU #### [address] [address] #### BMP, GFR #### [address] [address] CO2 [Moles/Vol] 30 mmol/L Normal 23-31 [facility] ([place]) Comment on above: Performed By: #### C BC, ADIFF, ANEU #### [place] [address] #### BMP, GFR #### [address] [address] Creatinine [Mass/Vol] 0.85 mg/dL Normal 0.55-1.02 [facility] ([place] Comment on above: Performed By: #### C BC, ADIFF, ANEU #### [address] [address] #### BMP, GFR #### [address] [address] Electrolyte Balance 9.0 mEq/L Normal [facility] ([place]) Comment on above: Performed By: #### C BC, ADIFF, ANEU #### [address] [address] #### BMP, GFR #### [address] [address] Glucose [Mass/Vol] 135 mg/dL High -110 [facility] ([place]) Comment on above: Performed By: #### C BC, ADIFF, ANEU #### [address] [address] #### BMP, GFR #### [address] [address] Potassium [Moles/Vol] 4.1 mmol/L Normal 3.5-5.1 [facility] ([place] Comment on above: Performed By: #### C BC, ADIFF, ANEU #### [address] [address] #### BMP, GFR #### [address] [address] Sodium [Moles/Vol] 143 mmol/L Normal 136-145 [facility] ([place]) Comment on above: Performed By: #### C BC, ADIFF, ANEU #### [address] [address] #### BMP, GFR #### [address] [address] Urea nitrogen [Mass/Vol] 14 mg/dL Normal 7-18 [facility] ([place] Comment on above: Performed By: #### C BC, ADIFF, ANEU #### [address] [address] #### BMP, GFR #### [address] [address] Urea nitrogen/Creatinine [Mass ratio] 16 ratio Normal 7-27 [facility] ([place]) Comment on above: Performed By: #### C BC, ADIFF, ANEU #### [address] [address] #### BMP, GFR #### [address] [address] CBCon 06-03-2019 Erythrocyte distribution width (RBC) [Ratio] 14.3 % Normal 11.5-14.5 [facility] ([place] Comment on above: Performed By: #### C BC, ADIFF, ANEU #### [address] [address] #### BMP, GFR #### [address] [address] Hematocrit (Bld) [Volume fraction] 38.5 % Normal 37.0-47.0 [facility] ([place] Comment on above: Performed By: #### C BC, ADIFF, ANEU #### [address] [address] #### BMP, GFR #### [address] [address] Hemoglobin (Bld) [Mass/Vol] 13.0 G/dL Normal 12.0-16.0 [facility] ([place] Comment on above: Performed By: #### C BC, ADIFF, ANEU #### [place] [address] #### BMP, GFR #### [place] [address] MCH (RBC) [Entitic mass] 30.0 pg Normal 27.0-31.2 [facility] ([place]) Comment on above: Performed By: #### C BC, ADIFF, ANEU #### [place] [address] #### BMP, GFR #### [address] [address] MCHC (RBC) [Mass/Vol] 33.8 G/dL Normal 33.0-37.0 [facility] ([place] Comment on above: Performed By: #### C BC, ADIFF, ANEU #### [place] [id number] #### BMP, GFR #### [address] [address] MCV (RBC) [Entitic vol] 88.6 fL Normal 80.0-94.0 [facility] ([place] Comment on above: Performed By: #### C BC, ADIFF, ANEU #### [place] [id number] #### BMP, GFR #### [address] [address] Platelet mean volume (Bld) [Entitic vol] 8.1 fL Normal 7.4-10.4 [facility] ([place]) Comment on above: Performed By: #### C BC, ADIFF, ANEU #### [address] [address] #### BMP, GFR #### [address] [address] Platelets (Bld) [#/Vol] 221 10 3/mcL Normal 130-400 [facility] ([place]) Comment on above: Performed By: #### C BC, ADIFF, ANEU #### [address] [address] #### BMP, GFR #### [address] [address] RBC (Bld) [#/Vol] 4.35 10 6/mcL Normal 4.20-5.40 [facility] ([place] Comment on above: Performed By: #### C BC, ADIFF, ANEU #### [address] [address] #### BMP, GFR #### [address] [address] WBC (Bld) [#/Vol] 9.90 10 3/mcL Normal 4.60-10.80 [facility] ([place] Comment on above: Performed By: #### C BC, ADIFF, ANEU #### [place] [address] #### BMP, GFR #### [address] [address] [address] ABD/PELVIS W/ IV CONTRAST ONLYon 06-03-2019 [...] PM Sign Date: 06/03/2019 4:57:41 PM Normal [facility] ([place]) CT HEAD OR BRAIN W/O CONTRAS Ton [...] PM Sign Date: 06/03/2019 4:10:32 PM Normal [facility] ([place] CT SPINE CERVICAL W/O CONTRA STon 06-03-2019 [...] PM Sign Date: 06/03/2019 4:35:12 PM Normal [facility] ([place]) CT THORAX W/ CONTRASTon 05-16 CT THORAX [...] By: Berna Clancy MD Preliminary Report By: Jeffry ,Tree DO Electronically Signed By: Berna Clancy MD Dictated Date: 06/03/2019 4:19:47 PM Prelim Date: 06/03/2019 4:26:59 PM Sign Date: 06/03/2019 4:53:52 PM Normal [facility] ([place]) XR ANKLE AND FOOT 6 VIEWS RI Alvino 06-03-2019 XR ANKLE AND FOOT 6 VIEWS [...] PM Sign Date: 06/03/2019 3:45:45 PM Normal [facility] ([place]) X[place] ANKLE MINIMUM 3 VIEWS RIG on 06-03-2019 XR ANKLE MINIMUM 3 VIEWS RIGHT [...] PM Sign Date: 06/03/2019 7:11:45 PM Normal [facility] ([place]) [place] CHEST 1 VIEWon 06-03-2019 XR CHEST [...] resident's findings and interpretation. Interpreted By: Berna Calncy MD Preliminary Report By: Tree Roberson DO Electronically Signed By: Berna Clancy MD Dictated Date: 06/03/2019 6:10:59 PM Prelim Date: 06/03/2019 6:13:12 PM Sign Date: 06/03/2019 6:20:15 PM Normal [facility] ([place] X[place] CHEST 1 VIEW ORIGINAL XR CHEST [...] PM Sign Date: 06/03/2019 3:47:37 PM Normal [facility] ([place] XR FOREARM 2 VIEWS RIGHTon 0 06-03-2019 [...] PM Sign Date: 06/03/2019 7:13:59 PM Normal [facility] ([place] X[place] KNEE THREE VIEWS RIGHTon 06-03-2019 XR [...] PM Sign Date: 06/03/2019 7:12:24 PM Normal [facility] [place] PELVIS 1 OR 2 VIEWSon XR [...] PM Sign Date: 06/03/2019 3:58:51 PM Normal [facility] ([place] X[place] WRIST TWO VIEWS RIGHTon 0 06-03-2019 [...] PM Sign Date: 06/03/2019 3:56:05 PM Normal [facility] ([place]) C-REACTIVE PROTEIN ([id number])Or dered By: Head Esthetician on 10-15-2017 CRP mass conc 1.0 mg/L Normal 0.0-4.9 Comprehensi ve Internal Medicine Work Phone: Comment on above: PATIENT NOT FASTINGP ERFORMED BY: ORTIZ [employer] Partnersaustyn [id number] [facility] [id number] CBC (AUTO) ([id number])Ordered By : Head Esthetician on 10-15-2017 Erythrocyte distribution width Ratio (RBC) 13.8 % Normal 12.3-15.4 [facility] Work Phone: Comment on above: PATIENT NOT FASTINGP ERFORMED BY: ORTIZ [employer]yn [id number] [facility] [id number] Hematocrit Volume Fraction (Bld) 40.2 % Normal 34.0-46.6 [facility] Work Phone: Comment on above: PATIENT NOT FASTINGP ERFORMED BY: ORTIZ [employer]70 [facility] [id number] Hemoglobin mass conc (Bld) 13.4 g/dL Normal 11.1-15.9 [facility] Internal Medicine Work Phone: Comment on above: PATIENT NOT FASTINGP ERFORMED BY: CB [facility] [id number] [address]bl[address] [place] [id number] MCH Entitic mass (RBC) 29.8 pg Normal 26.6-33.0 [facility] Internal Medicine Work Phone: Comment on above: PATIENT NOT FASTINGP ERFORMED BY: CB [facility] Dutbtw1287 [address]blin [place] [id number] MCHC mass conc (RBC) 33.3 g/dL Normal 31.5-35.7 [facility] Internal Medicine Work Phone: Comment on above: PATIENT NOT FASTINGP ERFORMED BY: CB [facility] [id number] [facility] [id number] MCV Entitic volume (RBC) 90 fL Normal 79-97 [facility] Internal Medicine Work Phone: Comment on above: PATIENT NOT FASTINGP ERFORMED BY: CB [facility] [id number] RoadFormerly [facility]in [place] [id number] Platelets #/vol (Bld) 211 {x10E3/uL} Normal 150-379 [facility] Internal Medicine Work Phone: Comment on above: PATIENT NOT FASTINGP ERFORMED BY: CB [facility] Baydst80[address]Formerly [facility] [place] [id number] RBC #/vol (Bld) 4.49 {x10E6/uL} Normal 3.77-5.28 [facility] Internal Medicine Work Phone: Comment on above: PATIENT NOT FASTINGP ERFORMED BY: CB [facility] [id number] [address] RoadDublin [place] [id number] WBC #/vol (Bld) 4.9 {x10E3/uL} Normal 3.4-10.8 [facility] Internal Medicine Work Phone: Comment on above: PATIENT NOT FASTINGP ERFORMED BY: CB [facility] [id number] [facility] [id number] METABOLIC PANEL, COMPREHENSI VE ([id number])Ordered By: Head Esthetician on 10-15-2017 Albumin mass conc 3.9 g/dL Normal 3.5-4.8 Compreh ensive Internal Medicine Work Phone: Comment on above: PATIENT NOT FASTINGP ERFORMED BY: CB [facility] [id number] [address] RoadDublin [place] [id number] Albumin/Globulin mass ratio 1.6 {ratio} Normal 1.2-2.2 [facility] Work Phone: Comment on above: PATIENT NOT FASTINGP ERFORMED BY: CB [facility] [id number] [address] RoadDublin [place] [id number] ALP enzyme act/vol 78 [iU]/L Normal 39-117 [facility] Work Phone: Comment on above: PATIENT NOT FASTINGP ERFORMED BY: CB [facility] [id number] [address] RoadDublin [place] [id number] ALT enzyme act/vol 18 [iU]/L Normal 0-32 Compre [facility] Internal Medicine Work Phone: Comment on above: PATIENT NOT FASTINGP ERFORMED BY: CB [facility] [id number] [address] RoadDublin [place] [id number] AST enzyme act/vol 25 [iU]/L Normal 0-40 [facility] Work Phone: Comment on above: PATIENT NOT FASTINGP ERFORMED BY: CB [facility] [id number] [address] RoadDublin [place] [id number] Bilirubin mass conc 0.4 mg/dL Normal 0.0-1.[address] [facility] Internal Medicine Work Phone: Comment on above: PATIENT NOT FASTINGP ERFORMED BY: CB [facility] [id number] [address]Dublin [place] [id number] Calcium mass conc 9.5 mg/dL Normal 8.7-10.[address] [facility] Internal Medicine Work Phone: Comment on above: PATIENT NOT FASTINGP ERFORMED BY: CB [facility] Eqwecl0084 [address] RoadDublin [place] [id number] Chloride molar conc 102 mmol/L Normal 96-106 Compr ehensive Internal Medicine Work Phone: Comment on above: PATIENT NOT FASTINGP ERFORMED BY: ORTIZ Chester[address] [facility] [place] [id number] CO2 molar conc 27 mmol/L Normal 18-29 Comprehens trupti Internal Medicine Work Phone: Comment on above: PATIENT NOT FASTINGP ERFORMED BY: ORTIZ LabCoaustyn CroweThvjyq2421 [address] [facility] [id number] Creatinine mass conc 0.88 mg/dL Normal 0.57-1.00 Comp rehensive Internal Medicine Work Phone: Comment on above: PATIENT NOT FASTINGP ERFORMED BY: ORTIZ Chester6370 [facility] [id number] GFR/1.73 sq M predicted among blacks CKD-EPI vol rate/area (S/P/Bld) 73 mL/min/1.73 Normal [facility] Work Phone: Comment on above: PATIENT NOT FASTINGP ERFORMED BY: ORTIZ LabCoaustyn CroweScuodg3829 [address] [facility] [id number] GFR/1.73 sq M predicted among non-blacks CKD-EPI vol rate/area (S/P/Bld) 63 mL/min/1.73 Normal Comprehensiv e Internal Medicine Work Phone: Comment on above: PATIENT NOT FASTINGP ERFORMED BY: ORTIZ LabAleksandr Uhuhse5984 [facility] [id number] Globulin mass conc (S) 2.4 g/dL Normal 1.5-4.5 Co mprehensive Internal Medicine Work Phone: Comment on above: PATIENT NOT FASTINGP ERFORMED BY: ORTIZ [facility] Uvbrie8525 [address] [facility] [id number] Glucose mass conc 87 mg/dL Normal 65-99 Compreh ensive Internal Medicine Work Phone: Comment on above: PATIENT NOT FASTINGP ERFORMED BY: ORTIZ [facility] Xqcqhv7453 [facility] [id number] Potassium molar conc 4.8 mmol/L Normal 3.5-5.2 Comp rehensive Internal Medicine Work Phone: Comment on above: PATIENT NOT FASTINGP ERFORMED BY: ORTIZ Nilda Chester6370 [facility] [id number] Protein mass conc 6.3 g/dL Normal 6.0-8.5 Compreh ensive Internal Medicine Work Phone: Comment on above: PATIENT NOT FASTINGP ERFORMED BY: ORTIZ Ameyaaustyn CroweYxowsf5367 [facility] [id number] Sodium molar conc 143 mmol/L Normal 134-144 Compreh ensive Internal Medicine Work Phone: Comment on above: PATIENT NOT FASTINGP ERFORMED BY: ORTIZ MeenaAleksandr CroweKrwdat8746 [facility] [id number] Urea nitrogen mass conc 10 mg/dL Normal 8-27 [facility] Work Phone: Comment on above: PATIENT NOT FASTINGP ERFORMED BY: ORTIZ Crowelin6370 [facility] [id number] Urea nitrogen/Creatinine mass ratio 11 mg/mg Abnormal 12- [facility] Work Phone: Comment on above: PATIENT NOT FASTINGP ERFORMED BY: ORTIZ Crowelin6370 [facility] [id number] SED RATE ERYTHROCYTE ([id number]) Ordered By: Head Esthetician on 10-15-2017 ESR Velocity (Bld) 2 mm/h Normal 0-40 Compre hensive Internal Medicine Work Phone: Comment on above: PATIENT NOT FASTINGP ERFORMED BY: ORTIZ Crowelin6370 [facility] [id number] CBC W/AUTO DIFF WBC (71312)O rdered By: Head Esthetician on 09-01-2017 Basophils #/vol (Bld) 0.0 {x10E3/uL} Normal 0.0-0.2 [facility] Work Phone: Comment on above: PATIENT WAS FASTINGP ERFORMED BY: ORTIZ Crowelin6370 [facility] [id number] Basophils/100 WBC (Bld) 0 % Normal [facility] Work Phone: Comment on above: PATIENT WAS FASTINGP ERFORMED BY: LabCoPenn Medicine [facility] CenterZoemkn6[address] Roadbl[address] [place] [id number] Eosinophils #/vol (Bld) 0.1 {x10E3/uL} Normal 0.0-0.4 [facility] Work Phone: Comment on above: PATIENT WAS FASTINGP ERFORMED BY: LabCoLea Regional Medical CenterZqkvgt8210 [address] [facility] [place] [id number] Eosinophils/100 WBC (Bld) 1 % Normal [facility] Work Phone: Comment on above: PATIENT WAS FASTINGP ERFORMED BY: LabSelect [facility]ty Hospital6370 [address] [facility] [id number] Erythrocyte distribution width Ratio (RBC) 13.8 % Normal 12.3-15.4 [facility] Work Phone: Comment on above: PATIENT WAS FASTINGP ERFORMED BY: [place] [id number] [facility] [id number] Hematocrit Volume Fraction (Bld) 40.2 % Normal 34.0-46.6 [facility] Work Phone: Comment on above: PATIENT WAS FASTINGP ERFORMED BY: LabSelect Specialty Hospital6370 [address] [facility] [id number] Hemoglobin mass conc (Bld) 13.2 g/dL Normal 11.1-15.9 [facility] Work Phone: Comment on above: PATIENT WAS FASTINGP ERFORMED BY: [facility]Bo[facility] Mnbsat4402 [address] [facility] [id number] Immature granulocytes #/vol (Bld) 0.0 {x10E3/uL} Normal 0.0-0.1 [facility] Work Phone: Comment on above: PATIENT WAS FASTINGP ERFORMED BY: LabSelect [facility]ty Hospital6[address] [facility] [id number] Immature granulocytes/100 WBC (Bld) 0 % Normal [facility] Work Phone: Comment on above: PATIENT WAS FASTINGP ERFORMED BY: ORTIZ LabAleksandr CroweQkdqwf2486 [address] [facility] [id number] Lymphocytes #/vol (Bld) 1.3 {x10E3/uL} Normal 0.7-3.1 [facility] Work Phone: Comment on above: PATIENT WAS FASTINGP ERFORMED BY: ORTIZ Chester6370 [facility] [id number] Lymphocytes/100 WBC (Bld) 29 % Normal [facility] Work Phone: Comment on above: PATIENT WAS FASTINGP ERFORMED BY: ORTIZ LabAleksandr Chester6370 [facility] [id number] MCH Entitic mass (RBC) 29.5 pg Normal 26.6-33.0 [facility] Internal Medicine Work Phone: Comment on above: PATIENT WAS FASTINGP ERFORMED BY: ORTIZ Chester6370 [facility] [id number] MCHC mass conc (RBC) 32.8 g/dL Normal 31.5-35.7 [facility] Internal Medicine Work Phone: Comment on above: PATIENT WAS FASTINGP ERFORMED BY: ORTIZ Crowelin6370 [facility] [id number] MCV Entitic volume (RBC) 90 fL Normal 79-97 [facility] Work Phone: Comment on above: PATIENT WAS FASTINGP ERFORMED BY: ORTIZ Chester6370 [facility] [id number] Monocytes #/vol (Bld) 0.4 {x10E3/uL} Normal 0.1-0.9 [facility] Work Phone: Comment on above: PATIENT WAS FASTINGP ERFORMED BY: ORTIZ LabAleksandr CroweAyhgil7035 [facility] [id number] Monocytes/100 WBC (Bld) 9 % Normal [facility] Work Phone: Comment on above: PATIENT WAS FASTINGP ERFORMED BY: ORTIZ Crowelin6370 [facility] [place] [id number] Neutrophils #/vol (Bld) 2.7 {x10E3/uL} Normal 1.4-7.0 [facility] Work Phone: Comment on above: PATIENT WAS FASTINGP ERFORMED BY: ORITZ Crowelin[address] [facility] [place] [id number] Neutrophils/100 WBC (Bld) 61 % Normal [facility] Work Phone: Comment on above: PATIENT WAS FASTINGP ERFORMED BY: ORTIZ LabAleksandr CroweAjrtst8248 [address] RoadFormerly [facility]in [place] [id number] Platelets #/vol (Bld) 198 {x10E3/uL} Normal 150-379 [facility] Work Phone: Comment on above: PATIENT WAS FASTINGP ERFORMED BY: ORTIZ Crowelin6[address] [facility] [id number] RBC #/vol (Bld) 4.47 {x10E6/uL} Normal 3.77-5.28 [facility] Internal Medicine Work Phone: Comment on above: PATIENT WAS FASTINGP ERFORMED BY: ORTIZ Crowelin6[address] [facility]in [place] [id number] WBC #/vol (Bld) 4.5 {x10E3/uL} Normal 3.4-10.8 [facility] Internal Medicine Work Phone: Comment on above: PATIENT WAS FASTINGP ERFORMED BY: ORTIZ Crowelin6[address] [facility] [place] [id number] LIPID PANEL (70200)Ordered B y: Head Esthetician on 09-01-2017 Cholesterol in HDL mass conc 59 mg/dL Normal [facility] Work Phone: Comment on above: PATIENT WAS FASTINGP ERFORMED BY: ORTIZ LabAleksandr CroweTrpdkt6062 [address] [facility]in [place] [id number] Cholesterol in LDL mass conc 72 mg/dL Normal 0-99 [facility] Work Phone: Comment on above: PATIENT WAS FASTINGP ERFORMED BY: ORTIZ LabAleksandr CroweUqsusc2986 [facility] [id number] Cholesterol in LDL/Cholesterol in HDL mass ratio 1.2 {ratio_units} Normal 0.0-3.2 [facility] Work Phone: Comment on above: LDL/HDL Ratio Men Wo men 1/2 Avg.Risk 1.0 1.5 Avg.Risk 3.6 3.2 2X Avg.Risk 6.2 5.0 3X Avg.Risk 8.0 6.1 PATIENT WAS FASTINGP ERFORMED BY: ORTIZ LabCo Cjkker9125 [facility] [id number] Cholesterol in VLDL mass conc 18 mg/dL Normal 5-40 [facility] Work Phone: Comment on above: PATIENT WAS FASTINGP ERFORMED BY: ORTIZ LabCo Shgrxg1322 [facility] [id number] Cholesterol mass conc 149 mg/dL Normal 100-199 Com prehensive Internal Medicine Work Phone: Comment on above: PATIENT WAS FASTINGP ERFORMED BY: ORTIZ LabCoPenn Medicine [facility] CenterArxlha7331 [facility] [id number] Triglyceride mass conc 92 mg/dL Normal 0-149 Co mprehensive Internal Medicine Work Phone: Comment on above: PATIENT WAS FASTINGP ERFORMED BY: ORTIZ [facility] Iqkjog3523 [facility] [id number] METABOLIC PANEL, COMPREHENSI VE (60695)Ordered By: Head Esthetician on 09-01-2017 Albumin mass conc 4.3 g/dL Normal 3.5-4.8 Compreh ensive Internal Medicine Work Phone: Comment on above: PATIENT WAS FASTINGP ERFORMED BY: ORTIZ [facility] Jiyajj0142 [facility] [id number] Albumin/Globulin mass ratio 2.0 {ratio} Normal 1.2-2.2 [facility] Work Phone: Comment on above: PATIENT WAS FASTINGP ERFORMED BY: ORTIZ [facility] Kcmijc2780 [facility] [id number] ALP enzyme act/vol 71 [iU]/L Normal 39-117 Compre hensive Internal Medicine Work Phone: Comment on above: PATIENT WAS FASTINGP ERFORMED BY: ORTIZ LabCoaustyn CroweBdjfjb7444 Rodriguez RoadDublin [place] [id number] ALT enzyme act/vol 11 [iU]/L Normal 0-32 Compre [facility] Internal Medicine Work Phone: Comment on above: PATIENT WAS FASTINGP ERFORMED BY: ORTIZ [facility] Oompof3[address] Roadblin [place] [id number] AST enzyme act/vol 16 [iU]/L Normal 0-40 Comprmissouri [facility] Internal Medicine Work Phone: Comment on above: PATIENT WAS FASTINGP ERFORMED BY: ORTIZ LabCoaustyn CroweUqwhrx5723 [address] RoadFormerly [facility]in [place] [id number] Bilirubin mass conc 0.4 mg/dL Normal 0.0-1.2 Compr ensive Internal Medicine Work Phone: Comment on above: PATIENT WAS FASTINGP ERFORMED BY: ORTIZ LabAleksandr CroweVzmlfm3161 [address] [facility] [id number] Calcium mass conc 9.5 mg/dL Normal 8.7-10.3 Compreh ensive Internal Medicine Work Phone: Comment on above: PATIENT WAS FASTINGP ERFORMED BY: ORTIZ LabAleksandr CroweVqqqbb4240 [address] [facility] [id number] Chloride molar conc 102 mmol/L Normal 96-106 Compr ensive Internal Medicine Work Phone: Comment on above: PATIENT WAS FASTINGP ERFORMED BY: ORTIZ LabCoaustyn CrowePyyjtw8814 [address] RoadFormerly [facility]in [place] [id number] CO2 molar conc 27 mmol/L Normal 18-29 Comprehens trupti Internal Medicine Work Phone: Comment on above: PATIENT WAS FASTINGP ERFORMED BY: ORTIZ [facility] Qabwxf4924 [address] Roadblin [place] [id number] Creatinine mass conc 0.84 mg/dL Normal 0.57-1.00 Comp [facility]erensive Internal Medicine Work Phone: Comment on above: PATIENT WAS FASTINGP ERFORMED BY: ORTIZ [facility] Xgrvol1903 [address] [facility]in [place] [id number] GFR/1.73 sq M predicted among blacks CKD-EPI vol rate/area (S/P/Bld) 77 mL/min/1.73 Normal [facility] Work Phone: Comment on above: PATIENT WAS FASTINGP ERFORMED BY: ORTIZ [facility]enaBo[facility] Center Cavenw0487 [facility] [id number] GFR/1.73 sq M predicted among non-blacks CKD-EPI vol rate/area (S/P/Bld) 67 mL/min/1.73 Normal Comprehensiv e Internal Medicine Work Phone: Comment on above: PATIENT WAS FASTINGP ERFORMED BY: ORTIZ Crowelin6370 [facility] [id number] Globulin mass conc (S) 2.2 g/dL Normal 1.5-4.5 Co mprehensive Internal Medicine Work Phone: Comment on above: PATIENT WAS FASTINGP ERFORMED BY: ORTIZ Crowelin6370 [facility] [id number] Glucose mass conc 88 mg/dL Normal 65-99 Compreh ensive Internal Medicine Work Phone: Comment on above: PATIENT WAS FASTINGP ERFORMED BY: ORTIZ Crowelin6370 [facility] [id number] Potassium molar conc 4.3 mmol/L Normal 3.5-5.2 Comp rehensive Internal Medicine Work Phone: Comment on above: PATIENT WAS FASTINGP ERFORMED BY: ORTIZ Crowelin6370 [facility] [id number] Protein mass conc 6.5 g/dL Normal 6.0-8.5 Compreh ensive Internal Medicine Work Phone: Comment on above: PATIENT WAS FASTINGP ERFORMED BY: ORTIZ LabAleksandr CroweEebbog5799 [facility] [id number] Sodium molar conc 143 mmol/L Normal 134-144 Compreh ensive Internal Medicine Work Phone: Comment on above: PATIENT WAS FASTINGP ERFORMED BY: ORTIZ Crowelin6370 [facility] [place] [id number] Urea nitrogen mass conc 13 mg/dL Normal 8-27 [facility] Work Phone: Comment on above: PATIENT WAS FASTINGP ERFORMED BY: ORTIZ Hou Cwxsqq3173 [address] [facility]in [place] [id number] Urea nitrogen/Creatinine mass ratio 15 mg/mg Normal 12- [facility] Work Phone: Comment on above: PATIENT WAS FASTINGP ERFORMED BY: LabCo Mlwatm5783 [address] [facility] [place] [id number] TSH ([id number])Ordered By: Smartisane m Preservative Filler Machine Operator on 09-01-2017 Thyrotropin Qn 2.410 {uIU/mL} Normal 0.450-4.50 0 [facility] Work Phone: Comment on above: PATIENT WAS FASTINGP ERFORMED BY: [facility]6370 [facility] [id number] VITAMIN B-12 (CYANOCOBALAMIN ) (47906)Ordered By: Head Esthetician on 09-01-2017 Cobalamin (Vitamin B12) mass conc 311 pg/mL Normal 232-1245 [facility] Work Phone: Comment on above: Please note refere nce interval change PATIENT WAS FASTINGP ERFORMED BY: LabBo[facility] Center Idmiba1319 [address] [facility] [id number] Vitamin D Hydroxy (71659)Ord ered By: Head Esthetician on 09-01-2017 25-Hydroxyvitamin D2+25-Hydroxyvitamin D3 mass conc 33.4 ng/mL Normal 30.0-100.0 [facility] Work Phone: Comment on above: Vitamin D deficiency has been defined by the [place] ofMedicine and an Endocrine Society practice guideline as alevel of serum 25-OH vitamin D less than 20 ng/mL (1,2).The Endocrine Society went on to further define vitamin Dinsufficiency as a level between 21 and 29 ng/mL (2).1. IOM ([place] of Medicine). 2010. Dietary reference intakes for calcium and D. [place]: The National Academies Press.2. Emile Rayo, Natalie POOLE, et al. Evaluation, treatment, and prevention of vitamin D deficiency: an Endocrine Society clinical practice guideline. JCEM. 2010; 96(7):1911-30. PATIENT WAS FASTINGP ERFORMED BY: [employer] Playteauformerly [facility] [id number] Office Visiton 06-05-2017 Dietary management education, guidance, and counseling (procedure) yes Invalid Interpretation Code [facility] Work Phone: Documentation of current medications (procedure) Done Invalid Interpretation Code [facility] Work Phone: Fall risk assessment No Invalid Interpretation Code [facility] Work Phone: Tobacco use CPHS Never smoker Invalid Interpretation Code [facility] Work Phone: CALCIFIDIOL (88053) VIT D 25 Ordered By: Head Esthetician on 12-16-2016 25-Hydroxyvitamin D2+25-Hydroxyvitamin D3 mass conc 37.5 ng/mL Normal 30.0-100.0 [facility] Work Phone: Comment on above: Vitamin D deficiency has been defined by the [place] ofMedicine and an Endocrine Society practice guideline as alevel of serum 25-OH vitamin D less than 20 ng/mL (1,2).The Endocrine Society went on to further define vitamin Dinsufficiency as a level between 21 and 29 ng/mL (2).1. IOM ([place] of Medicine). 2010. Dietary reference intakes for calcium and D. [place]: The National Academies Press.2. Allie MARLOW, Emile PONCE, Natalie POOLE, et al. Evaluation, treatment, and prevention of vitamin D deficiency: an Endocrine Society clinical practice guideline. JCEM. 2010; 96(7):1911-30. PATIENT WAS FASTINGP ERFORMED BY: [employer] Yxbnni2567 [facility] [id number] HEPATIC FUNCTION PANEL (8007 6)Ordered By: Head Esthetician on 12-16-2016 Albumin mass conc 4.3 g/dL Normal 3.5-4.8 Compreh ensive Internal Medicine Work Phone: Comment on above: PATIENT WAS FASTINGP ERFORMED BY: ORTIZ [facility] Ioqowk5073 [address] RoadDublin [place] [id number] ALP enzyme act/vol 72 [iU]/L Normal 39-117 [facility] Internal Medicine Work Phone: Comment on above: PATIENT WAS FASTINGP ERFORMED BY: ORTIZ [facility] Xrbamv5702 [address] RoadDublin [place] [id number] ALT enzyme act/vol 15 [iU]/L Normal 0-32 [facility] Internal Medicine Work Phone: Comment on above: PATIENT WAS FASTINGP ERFORMED BY: ORTIZ [facility] Hrharv6492 [address] RoadDublin [place] [id number] AST enzyme act/vol 18 [iU]/L Normal 0-40 [facility] Internal Medicine Work Phone: Comment on above: PATIENT WAS FASTINGP ERFORMED BY: ORTIZ [facility] Rebrab0411 [address] RoadDublin [place] [id number] Bilirubin mass conc 0.5 mg/dL Normal 0.0-1.2 [facility] Internal Medicine Work Phone: Comment on above: PATIENT WAS FASTINGP ERFORMED BY: ORTIZ [facility] Kqzfyg5598 [address] RoadDublin [place] [id number] Bilirubin.direct mass conc 0.16 mg/dL Normal 0.00-0.40 [facility] Internal Medicine Work Phone: Comment on above: PATIENT WAS FASTINGP ERFORMED BY: ORTIZ [facility] Nwbvqh7727 [address] RoadDublin [place] [id number] Protein mass conc 6.7 g/dL Normal 6.0-8.[address] [facility] Internal Medicine Work Phone: Comment on above: PATIENT WAS FASTINGP ERFORMED BY: ORTIZ [facility] Ncqtfd0857 [address] RoadDublin [place] [id number] LIPID PANEL ([id number])Ordered B y: Head Esthetician on 12-16-2016 Cholesterol in HDL mass conc 56 mg/dL Normal [facility] Work Phone: Comment on above: PATIENT WAS FASTINGP ERFORMED BY: ORTIZ [facility] Lmicge7408 [address] RoadDublin [place] [id number] Information: [id number], [id number] Cholesterol in LDL mass conc 44 mg/dL Normal 0-99 [facility] Work Phone: Comment on above: PATIENT WAS FASTINGP ERFORMED BY: ORTIZ Ameyaaustyn Whupip4355 [facility] [id number] Information: [id number], [id number] Cholesterol in LDL/Cholesterol in HDL mass ratio 0.8 {ratio_units} Normal 0.0-3.2 [facility] Work Phone: Comment on above: LDL/HDL Ratio Men Wo men 1/2 Avg.Risk 1.0 1.5 Avg.Risk 3.6 3.2 2X Avg.Risk 6.2 5.0 3X Avg.Risk 8.0 6.1 PATIENT WAS FASTINGP ERFORMED BY: ORTIZ RobledoTxaustyn Hovfwn9278 [facility] [id number] Information: [id number], [id number] Cholesterol in VLDL mass conc 27 mg/dL Normal 5-40 [facility] Work Phone: Comment on above: PATIENT WAS FASTINGP ERFORMED BY: ORTIZ Crowelin6370 [facility] [id number] Information: [id number], [id number] Cholesterol mass conc 127 mg/dL Normal 100-199 Com prehensive Internal Medicine Work Phone: Comment on above: PATIENT WAS FASTINGP ERFORMED BY: ORTIZ [facility]Select [facility]6370 [facility] [id number] Information: [id number], [id number] Triglyceride mass conc 135 mg/dL Normal 0-[address] [facility]'sehensive Internal Medicine Work Phone: Comment on above: PATIENT WAS FASTINGP ERFORMED BY: ORTIZ [facility]6370 [facility] [id number] Information: [id number], [id number] Clinical Lists Update: Prelo chief order dispatcher 10-31-2016 Left ventricular Ejection fraction 70 % Invalid Interpretation Code [facility] Work Phone: Lipid Panel (88010)Ordered B y: Head Esthetician on 09-16-2016 Cholesterol in HDL mass conc 44 mg/dL Normal [facility] Work Phone: Comment on above: PATIENT WAS FASTINGP ERFORMED BY: ORTIZ Crowelin6370 [facility] [id number] Cholesterol in LDL mass conc 161 mg/dL Abnormal 0-99 [facility] Work Phone: Comment on above: PATIENT WAS FASTINGP ERFORMED BY: ORTIZ Chester6370 [facility] [id number] Cholesterol in LDL/Cholesterol in HDL mass ratio 3.7 {ratio_units} Abnormal 0.0-3.2 [facility] Work Phone: Comment on above: LDL/HDL Ratio Men Wo men 1/2 Avg.Risk 1.0 1.5 Avg.Risk 3.6 3.2 2X Avg.Risk 6.2 5.0 3X Avg.Risk 8.0 6.1 PATIENT WAS FASTINGP ERFORMED BY: ORTIZ Crowelin6370 [facility] [id number] Cholesterol in VLDL mass conc 28 mg/dL Normal 5-40 [facility] Work Phone: Comment on above: PATIENT WAS FASTINGP ERFORMED BY: ORTIZ Crowelin6370 [facility] [id number] Cholesterol mass conc 233 mg/dL Abnormal 100-199 Com prehensive Internal Medicine Work Phone: Comment on above: PATIENT WAS FASTINGP ERFORMED BY: ORTIZ Chester6370 [facility] [id number] Triglyceride mass conc 139 mg/dL Normal 0-149 Co mprehensive Internal Medicine Work Phone: Comment on above: PATIENT WAS FASTINGP ERFORMED BY: ORTIZ Crowelin6370 [facility] [id number] VITAMIN B-12 (CYANOCOBALAMIN ) (05408)Ordered By: Head Esthetician on 09-16-2016 Cobalamin (Vitamin B12) mass conc 788 pg/mL Normal 211-946 [facility] Work Phone: Comment on above: PATIENT WAS FASTINGP ERFORMED BY: Nekted70 [facility]tuneCarolinas ContinueC[facility] [id number] CALCIFIDIOL (38282) VIT D 25 Ordered By: Head Esthetician on 07-01-2016 25-Hydroxyvitamin D2+25-Hydroxyvitamin D3 mass conc 34.8 ng/mL Normal 30.0-100.0 [facility] Work Phone: Comment on above: Vitamin D deficiency has been defined by the [place] ofMedicine and an Endocrine Society practice guideline as alevel of serum 25-OH vitamin D less than 20 ng/mL (1,2).The Endocrine Society went on to further define vitamin Dinsufficiency as a level between 21 and 29 ng/mL (2).1. IOM ([place] of Medicine). 2010. Dietary reference intakes for calcium and D. [place]: The National Academies Press.2. Allie MF, Emile [place], Natalie POOLE, et al. Evaluation, treatment, and prevention of vitamin D deficiency: an Endocrine Society clinical practice guideline. JCEM. 2010; 96(7):1911-30. PATIENT WAS FASTINGP ERFORMED BY: [employer]6370 [facility]tuneCarolinas [facility] [id number] CBC W/AUTO DIFF WBC (14570)O rdered By: Head Esthetician on 07-01-2016 Basophils #/vol (Bld) 0.0 {x10E3/uL} Normal 0.0-0.2 [facility] Work Phone: Comment on above: PATIENT WAS FASTINGP ERFORMED BY: Nekted70 [facility] [id number] Basophils/100 WBC (Bld) 0 % Normal [facility] Work Phone: Comment on above: PATIENT WAS FASTINGP ERFORMED BY: [employer] [facility] [id number] Eosinophils #/vol (Bld) 0.1 {x10E3/uL} Normal 0.0-0.4 [facility] Work Phone: Comment on above: PATIENT WAS FASTINGP ERFORMED BY: [employer] [facility]in [place] [id number] Eosinophils/100 WBC (Bld) 2 % Normal [facility] Work Phone: Comment on above: PATIENT WAS FASTINGP ERFORMED BY: [facility] Fvoacj8121 [address] [facility] [id number] Erythrocyte distribution width Ratio (RBC) 14.0 % Normal 12.3-15.4 [facility] Work Phone: Comment on above: PATIENT WAS FASTINGP ERFORMED BY: [facility]6[address] [facility] [id number] Hematocrit Volume Fraction (Bld) 42.4 % Normal 34.0-46.6 [facility] Work Phone: Comment on above: PATIENT WAS FASTINGP ERFORMED BY: [facility] [facility] [id number] Hemoglobin mass conc (Bld) 14.1 g/dL Normal 11.1-15.9 [facility] Work Phone: Comment on above: PATIENT WAS FASTINGP ERFORMED BY: [facility] [facility] [id number] Immature granulocytes #/vol (Bld) 0.0 {x10E3/uL} Normal 0.0-0.1 [facility] Work Phone: Comment on above: PATIENT WAS FASTINGP ERFORMED BY: [facility] [facility] [place] [id number] Immature granulocytes/100 WBC (Bld) 0 % Normal [facility] Work Phone: Comment on above: PATIENT WAS FASTINGP ERFORMED BY: [facility] Otgksy7572 [address] [facility] [place] [id number] Lymphocytes #/vol (Bld) 1.8 {x10E3/uL} Normal 0.7-3.1 [facility] Work Phone: Comment on above: PATIENT WAS FASTINGP ERFORMED BY: [facility] Lxomzj0636 [address] [facility] [place] [id number] Lymphocytes/100 WBC (Bld) 31 % Normal [facility] Work Phone: Comment on above: PATIENT WAS FASTINGP ERFORMED BY: [facility] Tzkhci0881 [address] [facility] [place] [id number] MCH Entitic mass (RBC) 29.7 pg Normal 26.6-33.0 [facility] Work Phone: Comment on above: PATIENT WAS FASTINGP ERFORMED BY: [facility]6[address] [facility] [id number] MCHC mass conc (RBC) 33.3 g/dL Normal 31.5-35.7 [facility] Internal Medicine Work Phone: Comment on above: PATIENT WAS FASTINGP ERFORMED BY: [facility]6370 [facility] [id number] MCV Entitic volume (RBC) 89 fL Normal 79-97 [facility] Work Phone: Comment on above: PATIENT WAS FASTINGP ERFORMED BY: [facility]6370 [facility] [id number] Monocytes #/vol (Bld) 0.4 {x10E3/uL} Normal 0.1-0.9 [facility] Work Phone: Comment on above: PATIENT WAS FASTINGP ERFORMED BY: [facility] Infrch0253 [facility] [id number] Monocytes/100 WBC (Bld) 6 % Normal [facility] Work Phone: Comment on above: PATIENT WAS FASTINGP ERFORMED BY: [facility] Wqicvl2191 [address] [facility] [place] [id number] Neutrophils #/vol (Bld) 3.7 {x10E3/uL} Normal 1.4-7.0 [facility] Work Phone: Comment on above: PATIENT WAS FASTINGP ERFORMED BY: [facility] Nnpezg7168 [address] [facility] [place] [id number] Neutrophils/100 WBC (Bld) 61 % Normal [facility] Work Phone: Comment on above: PATIENT WAS FASTINGP ERFORMED BY: ORTIZ [facility] Rcrsew6073 [facility] [id number] Platelets #/vol (Bld) 221 {x10E3/uL} Normal 150-379 [facility] Work Phone: Comment on above: PATIENT WAS FASTINGP ERFORMED BY: [facility] Dktljc6393 [facility] [id number] RBC #/vol (Bld) 4.75 {x10E6/uL} Normal 3.77-5.28 [facility] Work Phone: Comment on above: PATIENT WAS FASTINGP ERFORMED BY: ORTIZ [facility] Gshuyr8096 [facility] [id number] WBC #/vol (Bld) 6.0 {x10E3/uL} Normal 3.4-10.8 [facility] Internal Medicine Work Phone: Comment on above: PATIENT WAS FASTINGP ERFORMED BY: [facility] Oltawc6402 [facility] [id number] LIPID PANEL ([id number])Ordered B y: Head Esthetician on 07-01-2016 Cholesterol in HDL mass conc 41 mg/dL Normal [facility] Work Phone: Comment on above: According to ATP-III Guidelines, HDL-C >59 mg/dL is considered anegative risk factor for CHD. PATIENT WAS FASTINGP ERFORMED BY: ORTIZ [facility] Rfaqlr4340 [facility] [id number] Cholesterol in LDL mass conc 129 mg/dL Abnormal 0-99 [facility] Work Phone: Comment on above: PATIENT WAS FASTINGP ERFORMED BY: [facility] Ulowmi9705 [facility] [id number] Cholesterol in LDL/Cholesterol in HDL mass ratio 3.1 {ratio_units} Normal 0.0-3.2 [facility] Work Phone: Comment on above: LDL/HDL Ratio Men Wo men 1/2 Avg.Risk 1.0 1.5 Avg.Risk 3.6 3.2 2X Avg.Risk 6.2 5.0 3X Avg.Risk 8.0 6.1 PATIENT WAS FASTINGP ERFORMED BY: ORTIZ LabCoaustyn Bqjpam3147 [facility] [id number] Cholesterol in VLDL mass conc 45 mg/dL Abnormal 5-40 [facility] Work Phone: Comment on above: PATIENT WAS FASTINGP ERFORMED BY: ORTIZ LabCoaustyn CroweJwgrgs8972 [facility] [id number] Cholesterol mass conc 215 mg/dL Abnormal 100-199 Com prehensive Internal Medicine Work Phone: Comment on above: PATIENT WAS FASTINGP ERFORMED BY: ORTIZ [facility] Yhnhii4970 [facility] [id number] Triglyceride mass conc 223 mg/dL Abnormal 0-149 Co [facility]zgib[facility] hospitalensive Internal Medicine Work Phone: Comment on above: PATIENT WAS FASTINGP ERFORMED BY: ORTIZ LabAleksandr CroweAfkxbj2489 [facility] [id number] METABOLIC PANEL, COMPREHENSI VE ([id number])Ordered By: Head Esthetician on 07-01-2016 Albumin mass conc 4.1 g/dL Normal 3.5-4.[address] [facility] Internal Medicine Work Phone: Comment on above: PATIENT WAS FASTINGP ERFORMED BY: ORTIZ LabKellie Vztqbr8475 [facility] [id number] Albumin/Globulin mass ratio 1.6 {ratio} Normal 1.1-2.5 [facility] Internal Medicine Work Phone: Comment on above: PATIENT WAS FASTINGP ERFORMED BY: ORTIZ [facility] Timzbv9400 [facility] [id number] ALP enzyme act/vol 98 [iU]/L Normal 39-117 [facility] Work Phone: Comment on above: PATIENT WAS FASTINGP ERFORMED BY: ORTIZ [facility] Zzooga9058 [facility] [id number] ALT enzyme act/vol 11 [iU]/L Normal 0-32 [facility] Internal Medicine Work Phone: Comment on above: PATIENT WAS FASTINGP ERFORMED BY: ORTIZ LabAleksandr CroweJmpime7257 [address] RoadDublin [place] [id number] AST enzyme act/vol 17 [iU]/L Normal 0-40 [facility] Internal Medicine Work Phone: Comment on above: PATIENT WAS FASTINGP ERFORMED BY: ORTIZ LabAleksandr CroweLiwukc3456 Rodriguez RoadDublin [place] [id number] Bilirubin mass conc 0.2 mg/dL Normal 0.0-1.[address] [facility] Internal Medicine Work Phone: Comment on above: PATIENT WAS FASTINGP ERFORMED BY: ORTIZ LabAleksandr CroweIpjzkh0472 [address] RoadDublin [place] [id number] Calcium mass conc 9.8 mg/dL Normal 8.7-10.[address] [facility] Internal Medicine Work Phone: Comment on above: PATIENT WAS FASTINGP ERFORMED BY: ORTIZ Crowelin6370 [address] RoadDublin [place] [id number] Chloride molar conc 101 mmol/L Normal 97-106 [facility] Internal Medicine Work Phone: Comment on above: Please note refere nce interval change PATIENT WAS FASTINGP ERFORMED BY: ORTIZ Crowelin6370 [address] RoadDublin [place] [id number] CO2 molar conc 27 mmol/L Normal 18-29 [facility] Internal [facility] Work Phone: Comment on above: PATIENT WAS FASTINGP ERFORMED BY: ORTIZ LabAleksandr CroweIrblph7619 [address] RoadDublin [place] [id number] Creatinine mass conc 0.89 mg/dL Normal 0.57-1.00 [facility] Internal Medicine Work Phone: Comment on above: PATIENT WAS FASTINGP ERFORMED BY: ORTIZ LabAleksandr CroweMncfng8731 [address] RoadDublin [place] [id number] GFR/1.73 sq M predicted among blacks CKD-EPI vol rate/area (S/P/Bld) 72 mL/min/1.73 Normal [facility] Work Phone: Comment on above: PATIENT WAS FASTINGP ERFORMED BY: ORTIZ Crowelin6370 [facility] [id number] GFR/1.73 sq M predicted among non-blacks CKD-EPI vol rate/area (S/P/Bld) 63 mL/min/1.73 Normal Comprehensiv e Internal Medicine Work Phone: Comment on above: PATIENT WAS FASTINGP ERFORMED BY: ORTIZ [facility] Mhqoab9516 [facility] [id number] Globulin mass conc (S) 2.5 g/dL Normal 1.5-4.5 Co mprehensive Internal Medicine Work Phone: Comment on above: PATIENT WAS FASTINGP ERFORMED BY: ORTIZ Hou Ctkmbd4638 [facility] [id number] Glucose mass conc 92 mg/dL Normal 65-99 Compreh ensive Internal Medicine Work Phone: Comment on above: PATIENT WAS FASTINGP ERFORMED BY: ORTIZ Hou Jpccrq8238 [facility] [id number] Potassium molar conc 5.0 mmol/L Normal 3.5-5.2 Comp rehensive Internal Medicine Work Phone: Comment on above: Please note refere nce interval change PATIENT WAS FASTINGP ERFORMED BY: ORTIZ Crowelin6370 [facility] [id number] Protein mass conc 6.6 g/dL Normal 6.0-8.5 Compreh ensive Internal Medicine Work Phone: Comment on above: PATIENT WAS FASTINGP ERFORMED BY: ORTIZ [facility]6370 [facility] [id number] Sodium molar conc 143 mmol/L Normal 136-144 Compreh ensive Internal Medicine Work Phone: Comment on above: Please note refere nce interval change PATIENT WAS FASTINGP ERFORMED BY: ORTIZ [facility]6370 [facility] [id number] Urea nitrogen mass conc 9 mg/dL Normal 8-27 [facility] Work Phone: Comment on above: PATIENT WAS FASTINGP ERFORMED BY: CB [facility] Vobrdz7737 [address] RoadDublin [place] [id number] Urea nitrogen/Creatinine mass ratio 10 mg/mg Abnormal 08-09 [facility] Work Phone: Comment on above: PATIENT WAS FASTINGP ERFORMED BY: [facility] Aafoco8948 [address] RoadDublin [place] [id number] MICROALBUMINOrdered By: Smartisan em Preservative Filler Machine Operator on 07-01-2016 Albumin DL <= 20 mg/L mass conc (U) 5.9 ug/mL Normal [facility] Work Phone: Comment on above: PATIENT WAS FASTINGP ERFORMED BY: [facility] Tsncef9727 [address] RoadDublin [place] [id number] Albumin/Creatinine mass ratio (U) 4.3 {mg/g_creat} Normal 0.0-30.0 [facility] Work Phone: Comment on above: PATIENT WAS FASTINGP ERFORMED BY: [facility] Woarnr3635 [address] RoadDublin [place] [id number] Creatinine mass conc (U) 138.1 mg/dL Normal [facility] Work Phone: Comment on above: PATIENT WAS FASTINGP ERFORMED BY: [facility] Zihkjc2508 [address] RoadDublin [place] [id number] TSH ([id number])Ordered By: Smartisane Preservative Filler Machine Operator on 07-01-2016 Thyrotropin Qn 3.470 {uIU/mL} Normal 0.450-4.50 0 [facility] Work Phone: Comment on above: PATIENT WAS FASTINGP ERFORMED BY: [facility] Luzohc5797 [address] RoadDublin [place] [id number] URINALYSIS, W/ MICRO ([id number]) Ordered By: Head Esthetician on 07-01-2016 Appearance Nom (U) Clear Normal Compre hensive Internal Medicine Work Phone: Comment on above: PATIENT WAS FASTINGP ERFORMED BY: [facility] Cvxssu3903 [address] RoadDublin [place] [id number] Bilirubin Ql (U) Negative Normal Comprehe nsive Internal Medicine Work Phone: Comment on above: PATIENT WAS FASTINGP ERFORMED BY: ORTIZ [facility] Ijfsao2629 [address] RoadDublin [place] [id number] Color Nom (U) Yellow Normal Comprehensi ve Internal Medicine Work Phone: Comment on above: PATIENT WAS FASTINGP ERFORMED BY: ORTIZ [facility] Hungdk6349 [address] RoadDublin [place] [id number] Glucose Ql (U) Negative Normal Comprehens trupti Internal Medicine Work Phone: Comment on above: PATIENT WAS FASTINGP ERFORMED BY: ORTIZ [facility] Skqcqs8494 [address] RoadDublin [place] [id number] Hemoglobin Ql (U) Negative Normal Compreh ensive Internal Medicine Work Phone: Comment on above: PATIENT WAS FASTINGP ERFORMED BY: ORTIZ [facility] Qkrmlj8778 [address] RoadDublin [place] [id number] Ketones Ql (U) Negative Normal Comprehens trupti Internal Medicine Work Phone: Comment on above: PATIENT WAS FASTINGP ERFORMED BY: ORTIZ [facility] Oihabu1135 [address]uze RoadDublin [place] [id number] Leukocyte esterase Test strip Ql (U) Negative Normal [facility] Work Phone: Comment on above: PATIENT WAS FASTINGP ERFORMED BY: ORTIZ [facility] Oaylbf2112 [address] RoadDublin [place] [id number] Microscopic observation LM Nom (Urine sed) MICRON Normal [facility] Work Phone: Comment on above: Microscopic follows if indicated. PATIENT WAS FASTINGP ERFORMED BY: ORTIZ [facility] Pinppt7897 [address]igeuz RoadDublin [place] [id number] Microscopic observation LM Nom (Urine sed) See below: Normal [facility] Work Phone: Comment on above: Microscopic was derrick cated and was performed. PATIENT WAS FASTINGP ERFORMED BY: ORTIZ [facility] Quynvx7022 [address] RoadDublin [place] [id number] Nitrite Ql (U) Negative Normal Comprehens trupti Internal Medicine Work Phone: Comment on above: PATIENT WAS FASTINGP ERFORMED BY: [facility] Ehvyfg1302 [address] RoadDublin [place] [id number] pH (U) 5.5 [pH] Normal 5.0-7.5 [facility] Work Phone: Comment on above: PATIENT WAS FASTINGP ERFORMED BY: [facility] Axxldi2019 [address] RoadDublin [place] [id number] Protein Ql (U) Negative Normal Comprehens trupti Internal Medicine Work Phone: Comment on above: PATIENT WAS FASTINGP ERFORMED BY: [facility] Ucgjgd7262 [address]ir[address] RoadDublin [place] [id number] Specific gravity Relative Density (U) 1.016 1 Normal 1.005-1.03 0 [facility] Work Phone: Comment on above: PATIENT WAS FASTINGP ERFORMED BY: [facility] Rromyo5759 [address] RoadDublin [place] [id number] Urobilinogen Test strip mass conc (U) 0.2 mg/dL Normal 0.2-1.0 Comprehensiv e Internal Medicine Work Phone: Comment on above: PATIENT WAS FASTINGP ERFORMED BY: [facility] Dvasbd7457 [address] RoadDublin [place] [id number] VITAMIN B-12 (CYANOCOBALAMIN ) ([id number])Ordered By: Head Esthetician on 07-01-2016 Cobalamin (Vitamin B12) mass conc 861 pg/mL Normal 211-946 [facility] Work Phone: Comment on above: PATIENT WAS FASTINGP ERFORMED BY: [facility] Hmqkhf2579 [address] RoadDublin [place] [id number] CALCIFIDIOL (50653) VIT D 25 Ordered By: Head Esthetician on 12-05-2015 25-Hydroxyvitamin D2+25-Hydroxyvitamin D3 mass conc 40.5 ng/mL Normal 30.0-100.0 [facility] Work Phone: Comment on above: Vitamin D deficiency has been defined by the [place] ofMedicine and an Endocrine Society practice guideline as alevel of serum 25-OH vitamin D less than 20 ng/mL (1,2).The Endocrine Society went on to further define vitamin Dinsufficiency as a level between 21 and 29 ng/mL (2).1. IOM ([place] of Medicine). 2010. Dietary reference intakes for calcium and D. [place]: The National Academies Press.2. Allie MF, Emile PONCE, Natalie POOLE, et al. Evaluation, treatment, and prevention of vitamin D deficiency: an Endocrine Society clinical practice guideline. JCEM. 2010; 96(7):1911-30. PATIENT WAS FASTINGP ERFORMED BY: [facility] Lpxpiv5774 [address] [facility]in [place] [id number] CBC W/AUTO DIFF WBC (15373)O rdered By: Head Esthetician on 12-05-2015 Basophils #/vol (Bld) 0.0 {x10E3/uL} Normal 0.0-0.2 [facility] Work Phone: Comment on above: PATIENT WAS FASTINGP ERFORMED BY: [facility] Kllxrg0349 [address] [facility]in [place] [id number] Information: [id number] Basophils/100 WBC (Bld) 1 % Normal [facility] Work Phone: Comment on above: PATIENT WAS FASTINGP ERFORMED BY: [facility] Dukxlt4472 [address] [facility]in [place] [id number] Information: [id number] Eosinophils #/vol (Bld) 0.2 {x10E3/uL} Normal 0.0-0.4 [facility] Work Phone: Comment on above: PATIENT WAS FASTINGP ERFORMED BY: [facility] Jkszlk[address] [facility] Hospitalblin [place] [id number] Information: [id number] Eosinophils/100 WBC (Bld) 4 % Normal [facility] Work Phone: Comment on above: PATIENT WAS FASTINGP ERFORMED BY: [facility] Nobnus9423 [address] [facility]in [place] [id number] Information: [id number] Erythrocyte distribution width Ratio (RBC) 13.7 % Normal 12.3-15.4 [facility] Work Phone: Comment on above: PATIENT WAS FASTINGP ERFORMED BY: ORTIZ [facility] Kdubox7443 [facility] [id number] Information: [id number] Hematocrit Volume Fraction (Bld) 40.2 % Normal 34.0-46.6 [facility] Work Phone: Comment on above: PATIENT WAS FASTINGP ERFORMED BY: [address] [id number] Information: [id number] Hemoglobin mass conc (Bld) 13.6 g/dL Normal 11.1-15.9 [facility] Work Phone: Comment on above: PATIENT WAS FASTINGP ERFORMED BY: [facility] Xinjbg189[address] [id number] Information: [id number] Immature granulocytes #/vol (Bld) 0.0 {x10E3/uL} Normal 0.0-0.1 [facility] Work Phone: Comment on above: PATIENT WAS FASTINGP ERFORMED BY: Meena[address] [id number] Information: [id number] Immature granulocytes/100 WBC (Bld) 0 % Normal [facility] Work Phone: Comment on above: PATIENT WAS FASTINGP ERFORMED BY: [address] [id number] Information: [id number] Lymphocytes #/vol (Bld) 1.2 {x10E3/uL} Normal 0.7-3.1 [facility] Work Phone: Comment on above: PATIENT WAS FASTINGP ERFORMED BY: Meena[address] [id number] Information: [id number] Lymphocytes/100 WBC (Bld) 26 % Normal [facility] Work Phone: Comment on above: PATIENT WAS FASTINGP ERFORMED BY: ORTIZ [facility]6370 [facility] [id number] Information: [id number] MCH Entitic mass (RBC) 30.0 pg Normal 26.6-33.0 [facility] Work Phone: Comment on above: PATIENT WAS FASTINGP ERFORMED BY: ORTIZ [address] [id number] Information: [id number] MCHC mass conc (RBC) 33.8 g/dL Normal 31.5-35.7 [facility] Internal Medicine Work Phone: Comment on above: PATIENT WAS FASTINGP ERFORMED BY: ORTIZ [address] [id number] Information: [id number] MCV Entitic volume (RBC) 89 fL Normal 79-97 [facility] Work Phone: Comment on above: PATIENT WAS FASTINGP ERFORMED BY: ORTIZ [address] [id number] Information: [id number] Monocytes #/vol (Bld) 0.5 {x10E3/uL} Normal 0.1-0.9 [facility] Work Phone: Comment on above: PATIENT WAS FASTINGP ERFORMED BY: ORTIZ [place] 6880370 [facility] [id number] Information: [id number] Monocytes/100 WBC (Bld) 10 % Normal [facility] Work Phone: Comment on above: PATIENT WAS FASTINGP ERFORMED BY: [address] [id number] Information: [id number] Neutrophils #/vol (Bld) 2.7 {x10E3/uL} Normal 1.4-7.0 [facility] Work Phone: Comment on above: PATIENT WAS FASTINGP ERFORMED BY: [place] [address] [facility] [id number] Information: [id number] Neutrophils/100 WBC (Bld) 59 % Normal [facility] Work Phone: Comment on above: PATIENT WAS FASTINGP ERFORMED BY: [facility]6370 [facility] [id number] Information: [id number] Platelets #/vol (Bld) 206 {x10E3/uL} Normal 150-379 [facility] Work Phone: Comment on above: PATIENT WAS FASTINGP ERFORMED BY: [address] [id number] Information: [id number] RBC #/vol (Bld) 4.54 {x10E6/uL} Normal 3.77-5.28 [facility] Internal Medicine Work Phone: Comment on above: PATIENT WAS FASTINGP ERFORMED BY: [facility]6370 [facility] [id number] Information: [id number] WBC #/vol (Bld) 4.5 {x10E3/uL} Normal 3.4-10.8 [facility] Internal Medicine Work Phone: Comment on above: PATIENT WAS FASTINGP ERFORMED BY: [place] 4548670 [facility] [id number] Information: [id number] LIPID PANEL (16160)Ordered B y: Head Esthetician on 12-05-2015 Cholesterol in HDL mass conc 46 mg/dL Normal [facility] Work Phone: Comment on above: According to ATP-III Guidelines, HDL-C >59 mg/dL is considered anegative risk factor for CHD. PATIENT WAS FASTINGP ERFORMED BY: [facility]6370 [facility] [id number] Cholesterol in LDL mass conc 126 mg/dL Abnormal 0-99 [facility] Work Phone: Comment on above: PATIENT WAS FASTINGP ERFORMED BY: ORTIZ LabCoaustyn CroweFrwune4955 [address] Roadblin [place] [id number] Cholesterol in LDL/Cholesterol in HDL mass ratio 2.7 {ratio_units} Normal 0.0-3.2 [facility] Work Phone: Comment on above: LDL/HDL Ratio Men Wo men 1/2 Avg.Risk 1.0 1.5 Avg.Risk 3.6 3.2 2X Avg.Risk 6.2 5.0 3X Avg.Risk 8.0 6.1 PATIENT WAS FASTINGP ERFORMED BY: ORTIZ LabAleksandr CroweKxldmf0431 [address] Roadblin [place] [id number] Cholesterol in VLDL mass conc 31 mg/dL Normal 5-40 [facility] Work Phone: Comment on above: PATIENT WAS FASTINGP ERFORMED BY: ORTIZ LabAleksandr CroweKlohuk4839 Rodriguez Playteaublin [place] [id number] Cholesterol mass conc 203 mg/dL Abnormal 100-199 Com prehensive Internal Medicine Work Phone: Comment on above: PATIENT WAS FASTINGP ERFORMED BY: ORTIZ LabAleksandr CroweQciezj1701 [address] [facility] [place] [id number] Triglyceride mass conc 156 mg/dL Abnormal 0-[address] [facility]'sehensive Internal Medicine Work Phone: Comment on above: PATIENT WAS FASTINGP ERFORMED BY: ORTIZ Munguia Zccazq4650 [address] [facility] [place] [id number] METABOLIC PANEL, COMPREHENSI VE ([id number])Ordered By: Head Esthetician on 12-05-2015 Albumin mass conc 4.2 g/dL Normal 3.5-4.8 Compreh ensive Internal Medicine Work Phone: Comment on above: PATIENT WAS FASTINGP ERFORMED BY: ORTIZ [facility] Rezeub0511 [address] RoadDublin [place] [id number] Albumin/Globulin mass ratio 1.8 {ratio} Normal 1.1-2.5 [facility] Work Phone: Comment on above: PATIENT WAS FASTINGP ERFORMED BY: ORTIZ [facility] Elohum[address] [facility] Hospitalbl[facility] [place] [id number] ALP enzyme act/vol 71 [iU]/L Normal 39-117 [facility] Internal Medicine Work Phone: Comment on above: PATIENT WAS FASTINGP ERFORMED BY: ORTIZ [facility] Fcwnsj7999 [address] RoadDublin [place] [id number] ALT enzyme act/vol 10 [iU]/L Normal 0-32 [facility] Internal Medicine Work Phone: Comment on above: PATIENT WAS FASTINGP ERFORMED BY: [facility] Cizvsn6302 [address] Roadblin [place] [id number] AST enzyme act/vol 17 [iU]/L Normal 0-40 [facility] Internal Medicine Work Phone: Comment on above: PATIENT WAS FASTINGP ERFORMED BY: ORTIZ [facility] Pqpxmi8305 [address] Roadblin [place] [id number] Bilirubin mass conc 0.4 mg/dL Normal 0.0-1.2 Compr ensive Internal Medicine Work Phone: Comment on above: PATIENT WAS FASTINGP ERFORMED BY: ORTIZ [facility] Navruu1701 [address] RoadFormerly [facility] Hospital [facility] Countyin [place] [id number] Calcium mass conc 9.5 mg/dL Normal 8.7-10.[address] [facility] hospitalive Internal Medicine Work Phone: Comment on above: PATIENT WAS FASTINGP ERFORMED BY: [facility] Uhwkes7[address]Formerly [facility] Countyin [place] [id number] Chloride molar conc 106 mmol/L Normal 97-[address] Internal Medicine Work Phone: Comment on above: PATIENT WAS FASTINGP ERFORMED BY: [facility] Hetuua2179 [address] Roadblin [place] [id number] CO2 molar conc 25 mmol/L Normal 18-29 Comprehens trupti Internal Medicine Work Phone: Comment on above: PATIENT WAS FASTINGP ERFORMED BY: [facility] Hmljgp4455 [address] RoadDublin [place] [id number] Creatinine mass conc 0.92 mg/dL Normal 0.57-1.00 Comp [facility] Work Phone: Comment on above: PATIENT WAS FASTINGP ERFORMED BY: [facility] Pnfblx[address] [facility] Hospitalbl[facility] [place] [id number] GFR/1.73 sq M predicted among blacks CKD-EPI vol rate/area (S/P/Bld) 70 mL/min/1.73 Normal [facility] Work Phone: Comment on above: PATIENT WAS FASTINGP ERFORMED BY: [facility] Ecxbph[address] [facility] Hospitalblin [place] [id number] GFR/1.73 sq M predicted among non-blacks CKD-EPI vol rate/area (S/P/Bld) 61 mL/min/1.73 Normal Comprehensiv e Internal Medicine Work Phone: Comment on above: PATIENT WAS FASTINGP ERFORMED BY: [facility] Ekhlpp9249 [facility] [id number] Globulin mass conc (S) 2.3 g/dL Normal 1.5-4.5 Co mprehensive Internal Medicine Work Phone: Comment on above: PATIENT WAS FASTINGP ERFORMED BY: [facility] Ujsznr6219 [address] [facility] [id number] Glucose mass conc 84 mg/dL Normal 65-99 Compreh ensive Internal Medicine Work Phone: Comment on above: PATIENT WAS FASTINGP ERFORMED BY: [facility] Qntvka9870 [facility] [id number] Potassium molar conc 4.6 mmol/L Normal 3.5-5.2 Comp rehensive Internal Medicine Work Phone: Comment on above: PATIENT WAS FASTINGP ERFORMED BY: [facility] Svstct0722 [address] [facility] Hospitalin [place] [id number] Protein mass conc 6.5 g/dL Normal 6.0-8.5 Compreh ensive Internal Medicine Work Phone: Comment on above: PATIENT WAS FASTINGP ERFORMED BY: [facility] Fmgktm4880 [address] [facility] Hospitalin [place] [id number] Sodium molar conc 145 mmol/L Abnormal 134-144 Compreh ensive Internal Medicine Work Phone: Comment on above: PATIENT WAS FASTINGP ERFORMED BY: [facility] Zpqbuu7112 [address] RoadDublin [place] [id number] Urea nitrogen mass conc 16 mg/dL Normal 8-27 [facility] Work Phone: Comment on above: PATIENT WAS FASTINGP ERFORMED BY: [facility] Fmflpr0070 [address] RoadDublin [place] [id number] Urea nitrogen/Creatinine mass ratio 17 mg/mg Normal 11-26 [facility] Work Phone: Comment on above: PATIENT WAS FASTINGP ERFORMED BY: [facility] Flhcla1711 [address] RoadDublin [place] [id number] MICROALBUMINOrdered By: Smartisan em Preservative Filler Machine Operator on 12-05-2015 Albumin DL <= 20 mg/L mass conc (U) 25.6 ug/mL Abnormal 0.0-17.0 [facility] Work Phone: Comment on above: PATIENT WAS FASTINGP ERFORMED BY: [facility]6[address]blin [place] [id number] Albumin/Creatinine mass ratio (U) 9.3 {mg/g_creat} Normal 0.0-30.0 [facility] Work Phone: Comment on above: PATIENT WAS FASTINGP ERFORMED BY: [facility] Gszbwa5572 [address] RoadDublin [place] [id number] Creatinine mass conc (U) 276.5 mg/dL Normal 15.0-278.0 [facility] Work Phone: Comment on above: PATIENT WAS FASTINGP ERFORMED BY: [facility] Cudgiw7462 [address] RoadDublin [place] [id number] TSH ([id number])Ordered By: Smartisane m Preservative Filler Machine Operator on 12-05-2015 Thyrotropin Qn 1.330 {uIU/mL} Normal 0.450-4.50 0 [facility] Work Phone: Comment on above: PATIENT WAS FASTINGP ERFORMED BY: [facility] Nuyavw0273 [address] RoadDublin [place] [id number] URINALYSIS, W/ MICRO ([id number]) Ordered By: Head Esthetician on 12-05-2015 Appearance Nom (U) Clear Normal Compre hensive Internal Medicine Work Phone: Comment on above: PATIENT WAS FASTINGP ERFORMED BY: ORTIZ LabAleksandr CroweOipftm5749 [address] RoadDublin [place] [id number] Bilirubin Ql (U) Negative Normal Comprehe nsive Internal Medicine Work Phone: Comment on above: PATIENT WAS FASTINGP ERFORMED BY: ORTIZ LabAleksandr CroweKsjxuj2677 [address] RoadDublin [place] [id number] Color Nom (U) Yellow Normal Comprehensi ve Internal Medicine Work Phone: Comment on above: PATIENT WAS FASTINGP ERFORMED BY: ORTIZ LabAleksandr CroweGzxmeh2952 [address] RoadDublin [place] [id number] Glucose Ql (U) Negative Normal Comprehens trupti Internal Medicine Work Phone: Comment on above: PATIENT WAS FASTINGP ERFORMED BY: ORTIZ Crowelin6370 [address] RoadDublin [place] [id number] Hemoglobin Ql (U) Negative Normal Compreh ensive Internal Medicine Work Phone: Comment on above: PATIENT WAS FASTINGP ERFORMED BY: ORTIZ Crowelin6370 [address] RoadDublin [place] [id number] Ketones Ql (U) Negative Normal Comprehens trupti Internal Medicine Work Phone: Comment on above: PATIENT WAS FASTINGP ERFORMED BY: ORTIZ Crowelin6370 [address] RoadDublin [place] [id number] Leukocyte esterase Test strip Ql (U) Negative Normal [facility] Work Phone: Comment on above: PATIENT WAS FASTINGP ERFORMED BY: ORTIZ LabKellierp Vzyyfw3872 [address] RoadDublin [place] [id number] Microscopic observation LM Nom (Urine sed) See below: Normal [facility] Work Phone: Comment on above: Microscopic was derrick cated and was performed. PATIENT WAS FASTINGP ERFORMED BY: ORTIZ [facility] Vijosl5495 [address] RoadDublin [place] [id number] Nitrite Ql (U) Negative Normal Comprehens trputi Internal Medicine Work Phone: Comment on above: PATIENT WAS FASTINGP ERFORMED BY: ORTIZ [facility] Viodgr0690 [address] RoadDublin [place] [id number] pH (U) 5.5 [pH] Normal 5.0-7.5 [facility] Work Phone: Comment on above: PATIENT WAS FASTINGP ERFORMED BY: ORTIZ [facility] Kzecfm6815 [address] RoadDublin [place] [id number] Protein Ql (U) 1+ Abnormal Comprehens trupti Internal Medicine Work Phone: Comment on above: PATIENT WAS FASTINGP ERFORMED BY: ORTIZ [facility] Wgccgz7427 [address] RoadDublin [place] [id number] Specific gravity Relative Density (U) 1.029 1 Normal 1.005-1.03 0 [facility] Work Phone: Comment on above: PATIENT WAS FASTINGP ERFORMED BY: ORTIZ [facility] Jtfubd4125 [address] RoadDublin [place] [id number] Urobilinogen Test strip mass conc (U) 0.2 mg/dL Normal 0.2-1.0 [facility] Work Phone: Comment on above: PATIENT WAS FASTINGP ERFORMED BY: ORTIZ [facility] Erwlnh0297 [address] RoadDublin [place] [id number] VITAMIN B-12 (CYANOCOBALAMIN ) ([id number])Ordered By: Head Esthetician on 12-05-2015 Cobalamin (Vitamin B12) mass conc 465 pg/mL Normal 211-946 [facility] Work Phone: Comment on above: PATIENT WAS FASTINGP ERFORMED BY: CB [facility] Qgyjho3667 [address] RoadDublin [place] [id number] Fecal Occult Blood , Office ([id number])Ordered By: Gabino Bullock on 11-08-2015 Hemoglobin.gastrointes tinal Ql (St) Negative Normal [facility] Work Phone: VITAMIN B-12 (CYANOCOBALAMIN ) ([id number])Ordered By: Head Esthetician on 08-27-2015 Cobalamin (Vitamin B12) mass conc 919 pg/mL Normal 211-946 [facility] Work Phone: Comment on above: PATIENT NOT FASTINGP ERFORMED BY: ORTIZ [facility] Czbkun3476 [address] [facility] [id number] Information: [id number] Clinical Lists Update: Prelo chief order dispatcher 05-26-2015 Anion gap 6 mmol/L Invalid Interpretation Code [facility] Work Phone: basophils as percent of blood leukocytes, manual count 0.5 % Invalid Interpretation Code [facility] Work Phone: BUN/Creatinine Ratio 18.8 mg/mg Invalid Interpretation Code [facility] Work Phone: Calcium 8.9 mg/dL Invalid Interpretation Code [facility] Work Phone: Chloride 106 mmol/L Invalid Interpretation Code [facility] Work Phone: CO2 31.0 mmol/L Invalid Interpretation Code [facility] Work Phone: Creatinine 0.85 mg/dL Invalid Interpretation Code [facility] Work Phone: eosinophils as percent of blood leukocytes, manual count 5.4 % High [facility] Work Phone: Erythrocytes (RBC) 4.14 10*6/uL [facility] Work Phone: Glucose 102 mg/dL Invalid Interpretation Code [facility] Work Phone: Hematocrit (HCT) 38.6 % Invalid Interpretation Code [facility] Work Phone: Hemoglobin (HGB) 12.6 g/dL Invalid Interpretation Code [facility] Work Phone: Lymphocytes/100 leukocytes 27.3 % Invalid Interpretation Code [facility] Work Phone: MCH 30.4 pg Invalid Interpretation Code [facility] Work Phone: MCHC 32.6 g/dL Invalid Interpretation Code [facility] Work Phone: MCV 93.2 fL Invalid Interpretation Code [facility] Work Phone: Monocytes/100 leukocytes 10.2 % High [facility] Work Phone: neutrophils, band form as percent of blood leukocytes, manual count 56.4 % Invalid Interpretation Code [facility] Work Phone: Platelets 162 10*3/mm3 Invalid Interpretation Code [facility] Work Phone: PMV by Bernard 9.6 fL Invalid Interpretation Code [facility] Work Phone: Potassium 4.3 mmol/L Invalid Interpretation Code [facility] Work Phone: RDW-CA 12.9 % Invalid Interpretation Code [facility] Work Phone: Sodium 143 mmol/L Invalid Interpretation Code [facility] Work Phone: Urea nitrogen 16 mg/dL Invalid Interpretation Code [facility] Work Phone: WBC (Leukocytes) 6.3 10*3/uL Invalid Interpretation Code [facility] Work Phone: Clinical Lists Update: Prelo chief order dispatcher 04-26-2015 Cholesterol 136 mg/dL Invalid Interpretation Code [facility] Work Phone: HDL Cholesterol 49 mg/dL Invalid Interpretation Code [facility] Work Phone: LDL Cholesterol 66 mg/dL Invalid Interpretation Code [facility] Work Phone: Triglyceride 105 mg/dL Invalid Interpretation Code [facility] Work Phone: very low density lipoproteins 21 mg/dL Invalid Interpretation Code [facility] Work Phone: CBC W/AUTO DIFF WBC ([id number])O rdered By: Head Esthetician on 10-19-2014 Basophils #/vol (Bld) 0.0 {x10E3/uL} Normal 0.0-0.2 [facility] Work Phone: Comment on above: PATIENT WAS FASTINGP ERFORMED BY: [facility]CoP[facility] CenterVikjpt4652 [facility] [id number] Information: [id number] Basophils/100 WBC (Bld) 1 % Normal [facility] Work Phone: Comment on above: PATIENT WAS FASTINGP ERFORMED BY: [facility]6370 [facility] [id number] Information: [id number] Eosinophils #/vol (Bld) 0.2 {x10E3/uL} Normal 0.0-0.4 [facility] Work Phone: Comment on above: PATIENT WAS FASTINGP ERFORMED BY: [address] [id number] Information: [id number] Eosinophils/100 WBC (Bld) 5 % Normal [facility] Work Phone: Comment on above: PATIENT WAS FASTINGP ERFORMED BY: [address] [id number] Information: [id number] Erythrocyte distribution width Ratio (RBC) 13.5 % Normal 12.3-15.4 [facility] Work Phone: Comment on above: PATIENT WAS FASTINGP ERFORMED BY: [address] [id number] Information: [id number] Hematocrit Volume Fraction (Bld) 39.1 % Normal 34.0-46.6 [facility] Work Phone: Comment on above: PATIENT WAS FASTINGP ERFORMED BY: [address] [id number] Information: [id number] Hemoglobin mass conc (Bld) 12.9 g/dL Normal 11.1-15.9 [facility] Work Phone: Comment on above: PATIENT WAS FASTINGP ERFORMED BY: [address] [id number] Information: [id number],[id number] Immature granulocytes #/vol (Bld) 0.0 {x10E3/uL} Normal 0.0-0.1 [facility] Work Phone: Comment on above: PATIENT WAS FASTINGP ERFORMED BY: [facility]6370 [facility] [id number] Information: [id number] Immature granulocytes/100 WBC (Bld) 0 % Normal [facility] Work Phone: Comment on above: PATIENT WAS FASTINGP ERFORMED BY: [address] [id number] Information: [id number] Lymphocytes #/vol (Bld) 1.2 {x10E3/uL} Normal 0.7-3.1 [facility] Work Phone: Comment on above: PATIENT WAS FASTINGP ERFORMED BY: [address] [id number] Information: [id number] Lymphocytes/100 WBC (Bld) 25 % Normal [facility] Work Phone: Comment on above: PATIENT WAS FASTINGP ERFORMED BY: [address] [id number] Information: [id number] MCH Entitic mass (RBC) 29.8 pg Normal 26.6-33.0 [facility] Internal Medicine Work Phone: Comment on above: PATIENT WAS FASTINGP ERFORMED BY: [address] [id number] Information: [id number] MCHC mass conc (RBC) 33.0 g/dL Normal 31.5-35.7 [facility] Internal Medicine Work Phone: Comment on above: PATIENT WAS FASTINGP ERFORMED BY: [facility]6370 [facility] [id number] Information: [id number] MCV Entitic volume (RBC) 90 fL Normal 79-97 [facility] Internal Medicine Work Phone: Comment on above: PATIENT WAS FASTINGP ERFORMED BY: [place] 4548670 [facility] [id number] Information: [id number] Monocytes #/vol (Bld) 0.5 {x10E3/uL} Normal 0.1-0.9 [facility] Work Phone: Comment on above: PATIENT WAS FASTINGP ERFORMED BY: [facility]6370 [facility] [id number] Information: [id number] Monocytes/100 WBC (Bld) 10 % Normal [facility] Work Phone: Comment on above: PATIENT WAS FASTINGP ERFORMED BY: LabKimberly Ville 2627470 [facility] [id number] Information: [id number] Neutrophils #/vol (Bld) 2.9 {x10E3/uL} Normal 1.4-7.0 [facility] Work Phone: Comment on above: PATIENT WAS FASTINGP ERFORMED BY: [address] [id number] Information: [id number] Neutrophils/100 WBC (Bld) 59 % Normal [facility] Work Phone: Comment on above: PATIENT WAS FASTINGP ERFORMED BY: [facility]6370 [facility] [id number] Information: [id number] Platelets #/vol (Bld) 196 {x10E3/uL} Normal 150-379 [facility] Work Phone: Comment on above: PATIENT WAS FASTINGP ERFORMED BY: [facility]6370 [facility] [id number] Information: [id number] RBC #/vol (Bld) 4.33 {x10E6/uL} Normal 3.77-5.28 [facility] Internal Medicine Work Phone: Comment on above: PATIENT WAS FASTINGP ERFORMED BY: [facility]6370 [facility] [id number] Information: [id number] WBC #/vol (Bld) 4.9 {x10E3/uL} Normal 3.4-10.8 [facility] Work Phone: Comment on above: PATIENT WAS FASTINGP ERFORMED BY: ORTIZ Crowelin6370 [facility] [id number] Information: [id number] LIPID PANEL ([id number])Ordered B y: Head Esthetician on 10-19-2014 Cholesterol in HDL mass conc 47 mg/dL Normal [facility] Work Phone: Comment on above: According to ATP-III Guidelines, HDL-C >59 mg/dL is considered anegative risk factor for CHD. PATIENT WAS FASTINGP ERFORMED BY: ORTIZ [place]6370 [facility] [id number] Cholesterol in LDL mass conc 148 mg/dL Abnormal 0-99 [facility] Work Phone: Comment on above: PATIENT WAS FASTINGP ERFORMED BY: ORTIZ [place]6370 [facility] [id number] Cholesterol in LDL/Cholesterol in HDL mass ratio 3.1 {ratio_units} Normal 0.0-3.2 [facility] Work Phone: Comment on above: LDL/HDL Ratio Men Wo men 1/2 Avg.Risk 1.0 1.5 Avg.Risk 3.6 3.2 2X Avg.Risk 6.2 5.0 3X Avg.Risk 8.0 6.1 PATIENT WAS FASTINGP ERFORMED BY: ORTIZ [place]6370 [facility] [id number] Cholesterol in VLDL mass conc 36 mg/dL Normal 5-40 [facility] Work Phone: Comment on above: PATIENT WAS FASTINGP ERFORMED BY: ORTIZ [place]6370 [facility] [id number] Cholesterol mass conc 231 mg/dL Abnormal 100-[address] [facility] prehensive Internal Medicine Work Phone: Comment on above: PATIENT WAS FASTINGP ERFORMED BY: ORTIZ [place]6370 [facility] [id number] Triglyceride mass conc 179 mg/dL Abnormal 0-149 [facility] Internal Medicine Work Phone: Comment on above: PATIENT WAS FASTINGP ERFORMED BY: CB [facility] Aqzptr0018 [address] RoadDublin [place] [id number] METABOLIC PANEL, COMPREHENSI VE (60152)Ordered By: Head Esthetician on 10-19-2014 Albumin mass conc 4.3 g/dL Normal 3.5-4.[address] [facility] Internal Medicine Work Phone: Comment on above: PATIENT WAS FASTINGP ERFORMED BY: CB [facility] Tfpcjf8075 [address] RoadDublin [place] [id number] Albumin/Globulin mass ratio 2.2 {ratio} Normal 1.1-2.5 [facility] Internal Medicine Work Phone: Comment on above: PATIENT WAS FASTINGP ERFORMED BY: CB [facility] Mmmdmi6497 Rodriguez RoadDublin [place] [id number] ALP enzyme act/vol 73 [iU]/L Normal 39-117 [facility] Internal Medicine Work Phone: Comment on above: PATIENT WAS FASTINGP ERFORMED BY: CB [facility] Gnfors3005 [address] RoadDublin [place] [id number] ALT enzyme act/vol 8 [iU]/L Normal 0-32 [facility] Internal Medicine Work Phone: Comment on above: PATIENT WAS FASTINGP ERFORMED BY: CB [facility] Nrujnn7080 [address] RoadDublin [place] [id number] AST enzyme act/vol 15 [iU]/L Normal 0-40 [facility] Internal Medicine Work Phone: Comment on above: PATIENT WAS FASTINGP ERFORMED BY: CB [facility] Zwzdph2541 [address] RoadDublin [place] [id number] Bilirubin mass conc 0.3 mg/dL Normal 0.0-1.2 [facility] Internal Medicine Work Phone: Comment on above: PATIENT WAS FASTINGP ERFORMED BY: CB [facility] Fpciiw1946 [address] RoadDublin [place] [id number] Calcium mass conc 9.6 mg/dL Normal 8.7-10.3 Compreh ensive Internal Medicine Work Phone: Comment on above: PATIENT WAS FASTINGP ERFORMED BY: ORTIZ LabCoaustyn Sfrqzh9314 [address] Roadblin [place] [id number] Chloride molar conc 99 mmol/L Normal 97-108 Compr ehensive Internal Medicine Work Phone: Comment on above: PATIENT WAS FASTINGP ERFORMED BY: ORTIZ [facility] Rncjnk4638 [address] Roadblin [place] [id number] CO2 molar conc 27 mmol/L Normal 18-29 Comprehens trupti Internal Medicine Work Phone: Comment on above: PATIENT WAS FASTINGP ERFORMED BY: ORTIZ [facility] Ifsxjl0228 [address] RoadFormerly [facility]in [place] [id number] Creatinine mass conc 0.91 mg/dL Normal 0.57-1.00 [facility] Work Phone: Comment on above: PATIENT WAS FASTINGP ERFORMED BY: ORTIZ [facility] Rtnldj3402 [address] [facility]in [place] [id number] GFR/1.73 sq M predicted among blacks CKD-EPI vol rate/area (S/P/Bld) 71 mL/min/1.73 Normal [facility] Work Phone: Comment on above: PATIENT WAS FASTINGP ERFORMED BY: ORTIZ [facility] Wlugnx6950 [address] [facility]in [place] [id number] GFR/1.73 sq M predicted among non-blacks CKD-EPI vol rate/area (S/P/Bld) 62 mL/min/1.73 Normal Comprehensiv e Internal Medicine Work Phone: Comment on above: PATIENT WAS FASTINGP ERFORMED BY: ORTIZ [facility] Xdukix2924 [address] RoadDublin [place] [id number] Globulin mass conc (S) 2.0 g/dL Normal 1.5-4.[address] [facility]ehens[facility] Internal Medicine Work Phone: Comment on above: PATIENT WAS FASTINGP ERFORMED BY: ORTIZ [facility] Zxsgrs7746 [address] Roadblin [place] [id number] Glucose mass conc 82 mg/dL Normal 65-99 Compreh ensive Internal Medicine Work Phone: Comment on above: PATIENT WAS FASTINGP ERFORMED BY: ORTIZ MeenaAleksandr CroweFvshes0858 [facility] [id number] Potassium molar conc 4.6 mmol/L Normal 3.5-5.2 Comp rehensive Internal Medicine Work Phone: Comment on above: PATIENT WAS FASTINGP ERFORMED BY: ORTIZ Ameyaaustyn CroweMeponu8615 [facility] [id number] Protein mass conc 6.3 g/dL Normal 6.0-8.5 Compreh ensive Internal Medicine Work Phone: Comment on above: PATIENT WAS FASTINGP ERFORMED BY: ORTIZ Crowelin6370 [facility] [id number] Sodium molar conc 141 mmol/L Normal 134-144 Compreh ensive Internal Medicine Work Phone: Comment on above: PATIENT WAS FASTINGP ERFORMED BY: ORTIZ Crowelin6370 [facility] [id number] Urea nitrogen mass conc 11 mg/dL Normal 8-27 [facility] Work Phone: Comment on above: PATIENT WAS FASTINGP ERFORMED BY: ORTIZ Crowelin6370 [facility] [id number] Urea nitrogen/Creatinine mass ratio 12 mg/mg Normal 11-26 [facility] Work Phone: Comment on above: PATIENT WAS FASTINGP ERFORMED BY: ORTIZ Crowelin6370 [facility] [id number] MICROALBUMINOrdered By: Syst em Preservative Filler Machine Operator on 10-19-2014 Albumin DL <= 20 mg/L mass conc (U) 10.7 ug/mL Normal 0.0-17.0 [facility] Work Phone: Comment on above: PATIENT WAS FASTINGP ERFORMED BY: ORTIZ Crowelin6370 [facility] [id number] Albumin/Creatinine mass ratio (U) 8.1 {mg/g_creat} Normal 0.0-30.0 [facility] Work Phone: Comment on above: PATIENT WAS FASTINGP ERFORMED BY: ORTIZ [facility] Vvmjti9177 [address] RoadDublin [place] [id number] Creatinine mass conc (U) 132.3 mg/dL Normal 15.0-278.0 [facility] Work Phone: Comment on above: PATIENT WAS FASTINGP ERFORMED BY: ORTIZ [facility] Ybelix4847 [address] RoadDublin [place] [id number] TSH ([id number])Ordered By: Smartisane m Preservative Filler Machine Operator on 10-19-2014 Thyrotropin Qn 1.170 {uIU/mL} Normal 0.450-4.50 0 [facility] Work Phone: Comment on above: PATIENT WAS FASTINGP ERFORMED BY: ORTIZ [facility] Qarsht1342 [address] RoadDublin [place] [id number] URINALYSIS, W/ MICRO ([id number]) Ordered By: Head Esthetician on 10-19-2014 Appearance Nom (U) Clear Normal Compre hensive Internal Medicine Work Phone: Comment on above: PATIENT WAS FASTINGP ERFORMED BY: ORTIZ [facility] Bxytif3150 [address] RoadDublin [place] [id number] Bilirubin Ql (U) Negative Normal Comprehe nsive Internal Medicine Work Phone: Comment on above: PATIENT WAS FASTINGP ERFORMED BY: ORTIZ [facility] Ptgzlh5887 [address] RoadDublin [place] [id number] Color Nom (U) Yellow Normal Comprehensi ve Internal Medicine Work Phone: Comment on above: PATIENT WAS FASTINGP ERFORMED BY: ORTIZ [facility] Fdvstl0845 [address] RoadDublin [place] [id number] Glucose Ql (U) Negative Normal Comprehens trupti Internal Medicine Work Phone: Comment on above: PATIENT WAS FASTINGP ERFORMED BY: ORTIZ [facility] Ylsxgz5189 [address] RoadDublin [place] [id number] Hemoglobin Ql (U) Negative Normal Compreh ensive Internal Medicine Work Phone: Comment on above: PATIENT WAS FASTINGP ERFORMED BY: ORTIZ [facility] Lacnlj6544 [address] RoadDublin [place] [id number] Ketones Ql (U) Negative Normal Comprehens trupti Internal Medicine Work Phone: Comment on above: PATIENT WAS FASTINGP ERFORMED BY: ORTIZ LabKellierp Ktdftj9676 [address] RoadDublin [place] [id number] Leukocyte esterase Test strip Ql (U) Negative Normal [facility] Work Phone: Comment on above: PATIENT WAS FASTINGP ERFORMED BY: ORTIZ [facility] Rbsevr4877 [address] RoadDublin [place] [id number] Microscopic observation LM Nom (Urine sed) See below: Normal [facility] Work Phone: Comment on above: Microscopic was derrick cated and was performed. PATIENT WAS FASTINGP ERFORMED BY: ORTIZ [facility] Kdpdsw6345 Rodriguez RoadDublin [place] [id number] Microscopic observation LM Nom (Urine sed) MICRON Normal [facility] Work Phone: Comment on above: Microscopic follows if indicated. PATIENT WAS FASTINGP ERFORMED BY: [facility] Azdswn6[address] RoadDublin [place] [id number] Nitrite Ql (U) Negative Normal Comprehens trupti Internal Medicine Work Phone: Comment on above: PATIENT WAS FASTINGP ERFORMED BY: ORTIZ [facility] Yexfrg[address] Formerly [facility] HospitalDublin [place] [id number] pH (U) 7.0 [pH] Normal 5.0-7.5 [facility] Work Phone: Comment on above: PATIENT WAS FASTINGP ERFORMED BY: ORTIZ [facility] Tmqvis5380 Rodriguez RoadDublin [place] [id number] Protein Ql (U) Trace Normal Comprehens trupti Internal Medicine Work Phone: Comment on above: PATIENT WAS FASTINGP ERFORMED BY: ORTIZ [facility] Sqvnzx7390 [address] RoadDublin [place] [id number] Specific gravity Relative Density (U) 1.017 1 Normal 1.005-1.03 0 [facility] Work Phone: Comment on above: PATIENT WAS FASTINGP ERFORMED BY: [facility] Rhlbyb5099 Rodriguez Roadblin [place] [id number] Urobilinogen Test strip mass conc (U) 0.2 mg/dL Normal 0.0-1.9 Comprehensiv e Internal Medicine Work Phone: Comment on above: PATIENT WAS FASTINGP ERFORMED BY: [employer] Ujcgvc4965 Rodriguez Roadblin [place] [id number] Vitamin D Hydroxy (74541)Ord ered By: Head Esthetician on 10-19-2014 25-Hydroxyvitamin D2+25-Hydroxyvitamin D3 mass conc 39.6 ng/mL Normal 30.0-100.0 [facility] Work Phone: Comment on above: Vitamin D deficiency has been defined by the [place] ofMedicine and an Endocrine Society practice guideline as alevel of serum 25-OH vitamin D less than 20 ng/mL (1,2).The Endocrine Society went on to further define vitamin Dinsufficiency as a level between 21 and 29 ng/mL (2).1. IOM ([place] of Medicine). 2010. Dietary reference intakes for calcium and D. [place]: The National Academies Press.2. Allie MF, Emile NC, Natalie POOLE, et al. Evaluation, treatment, and prevention of vitamin D deficiency: an Endocrine Society clinical practice guideline. JCEM. 2010; 96(7):1911-30. PATIENT WAS FASTINGP ERFORMED BY: [employer] Amgmwu2778 [facility] [id number] FECAL OCCULT HGB ASSAY- tube s sent home (83325)Ordered By: Cady Huber on 10-12-2014 Hemoglobin.gastrointes tinal Ql (St) Negative Normal [facility] Work Phone: Office Visit: [facility] 10-10-19 15 cardiac risk group C Invalid Interpretation Code [facility] Work Phone: General cardiovascular disease 10Y risk [#] [place]D'Agost[place] N/A Invalid Interpretation Code [facility] Work Phone: Replaced Document: Escobar ROMERO Observationson 10-10-2014 electrocardiogram interpretation Sinus Bradycardia WITHIN NORMAL LIMITS Invalid Interpretation Code [facility] [employer] Work Phone: GE use only - for LinkLogic import when terms are not otherwise specified 438 ms Invalid Interpretation Code [facility] Work Phone: P wave axis, electrocardiogram 33 deg Invalid Interpretation Code [facility] Work Phone: IL interval, electrocardiogram 164 ms Invalid Interpretation Code [facility] Work Phone: Pulse (Heart Rate) 55 /min Invalid Interpretation Code [facility] Work Phone: QRS axis, electrocardiogram 7 deg Invalid Interpretation Code [facility] Work Phone: QRS duration, electrocardiogram 90 ms Invalid Interpretation Code [facility] Work Phone: QT interval, electrocardiogram new path ms Invalid Interpretation Code [facility] Work Phone: T wave axis, electrocardiogram 41 deg Invalid Interpretation Code [facility] Work Phone: CBC WITH MANUAL DIFF (52041) Ordered By: Head Esthetician on 06-26-2014 Basophils #/vol (Bld) 0.0 {x10E3/uL} Normal 0.0-0.2 [facility] Work Phone: Comment on above: PATIENT WAS FASTINGP ERFORMED BY: [employer] RodriguezNOBLE PEAK VISIONCarolinas ContinueCARE Hospital [facility] [id number] Information: [id number] Basophils/100 WBC (Bld) 1 % Normal [facility] Work Phone: Comment on above: PATIENT WAS FASTINGP ERFORMED BY: Agorafy Rodriguez [facility]Car[facility] [id number] Information: [id number] Eosinophils #/vol (Bld) 0.2 {x10E3/uL} Normal 0.0-0.4 [facility] Work Phone: Comment on above: PATIENT WAS FASTINGP ERFORMED BY: Agorafy Rodriguez Playteauformerly [facility] [id number] Information: [id number] Eosinophils/100 WBC (Bld) 3 % Normal [facility] Work Phone: Comment on above: PATIENT WAS FASTINGP ERFORMED BY: [address] [id number] Information: [id number] Erythrocyte distribution width Ratio (RBC) 13.4 % Normal 12.3-15.4 [facility] Work Phone: Comment on above: PATIENT WAS FASTINGP ERFORMED BY: [address] [id number] Information: [id number] Hematocrit Volume Fraction (Bld) 40.5 % Normal 34.0-46.6 [facility] Work Phone: Comment on above: PATIENT WAS FASTINGP ERFORMED BY: [address] [id number] Information: [id number] Hemoglobin mass conc (Bld) 13.1 g/dL Normal 11.1-15.9 [facility] Work Phone: Comment on above: PATIENT WAS FASTINGP ERFORMED BY: [address] [id number] Information: [id number] Immature granulocytes #/vol (Bld) 0.0 {x10E3/uL} Normal 0.0-0.1 [facility] Work Phone: Comment on above: PATIENT WAS FASTINGP ERFORMED BY: [address] [id number] Information: [id number] Immature granulocytes/100 WBC (Bld) 0 % Normal [facility] Work Phone: Comment on above: PATIENT WAS FASTINGP ERFORMED BY: [address] [id number] Information: [id number] Lymphocytes #/vol (Bld) 1.1 {x10E3/uL} Normal 0.7-3.1 [facility] Work Phone: Comment on above: PATIENT WAS FASTINGP ERFORMED BY: ORTIZ [facility]6370 [facility] [id number] Information: [id number] Lymphocytes/100 WBC (Bld) 21 % Normal [facility] Work Phone: Comment on above: PATIENT WAS FASTINGP ERFORMED BY: ORTIZ [place] 6880370 [facility] [id number] Information: 360846,[id number] MCH Entitic mass (RBC) 29.4 pg Normal 26.6-33.0 [facility] Internal Medicine Work Phone: Comment on above: PATIENT WAS FASTINGP ERFORMED BY: ORTIZ MeenaAleksandr CroweIexxyk[address] [id number] Information: [id number] MCHC mass conc (RBC) 32.3 g/dL Normal 31.5-35.7 [facility] Internal Medicine Work Phone: Comment on above: PATIENT WAS FASTINGP ERFORMED BY: ORTIZ [place]oKim[place] 2627470 [facility] [id number] Information: 413887,[id number] MCV Entitic volume (RBC) 91 fL Normal 79-97 [facility] Internal Medicine Work Phone: Comment on above: PATIENT WAS FASTINGP ERFORMED BY: ORTIZ [address] [id number] Information: [id number] Monocytes #/vol (Bld) 0.5 {x10E3/uL} Normal 0.1-0.9 [facility] Work Phone: Comment on above: PATIENT WAS FASTINGP ERFORMED BY: ORTIZ LabKimberly Ville 2627470 [facility] [id number] Information: 333195,[id number] Monocytes/100 WBC (Bld) 10 % Normal [facility] Work Phone: Comment on above: PATIENT WAS FASTINGP ERFORMED BY: ORTIZ Lab66 Mor[address] Streetblin [place] [id number] Information: [id number],[id number] Neutrophils #/vol (Bld) 3.7 {x10E3/uL} Normal 1.4-7.0 [facility] Work Phone: Comment on above: PATIENT WAS FASTINGP ERFORMED BY: [address] [id number] Information: [id number] Neutrophils/100 WBC (Bld) 65 % Normal [facility] Work Phone: Comment on above: PATIENT WAS FASTINGP ERFORMED BY: [address] [id number] Information: [id number],[id number] Platelets #/vol (Bld) 198 {x10E3/uL} Normal 150-379 [facility] Work Phone: Comment on above: PATIENT WAS FASTINGP ERFORMED BY: [facility]6370 [facility] [id number] Information: [id number] RBC #/vol (Bld) 4.45 {x10E6/uL} Normal 3.77-5.28 [facility] Internal Medicine Work Phone: Comment on above: PATIENT WAS FASTINGP ERFORMED BY: [facility]6370 [facility] [id number] Information: [id number],[id number] WBC #/vol (Bld) 5.6 {x10E3/uL} Normal 3.4-10.8 [facility] Internal Medicine Work Phone: Comment on above: PATIENT WAS FASTINGP ERFORMED BY: [facility]6370 [facility] [id number] Information: 219357,L10324 LIPID PANEL (22820)Ordered B y: Head Esthetician on 06-26-2014 Cholesterol in HDL mass conc 46 mg/dL Normal [facility] Work Phone: Comment on above: According to ATP-III Guidelines, HDL-C >59 mg/dL is considered anegative risk factor for CHD. PATIENT WAS FASTINGP ERFORMED BY: ORTIZ Chester6370 [facility] [id number] Cholesterol in LDL mass conc 130 mg/dL Abnormal 0-99 [facility] Work Phone: Comment on above: PATIENT WAS FASTINGP ERFORMED BY: ORTIZ Chester6370 [facility] [id number] Cholesterol in LDL/Cholesterol in HDL mass ratio 2.8 {ratio_units} Normal 0.0-3.2 [facility] Work Phone: Comment on above: LDL/HDL Ratio Men Wo men 1/2 Avg.Risk 1.0 1.5 Avg.Risk 3.6 3.2 2X Avg.Risk 6.2 5.0 3X Avg.Risk 8.0 6.1 PATIENT WAS FASTINGP ERFORMED BY: ORTIZ Chester6370 [facility] [id number] Cholesterol in VLDL mass conc 41 mg/dL Abnormal 5-40 [facility] Work Phone: Comment on above: PATIENT WAS FASTINGP ERFORMED BY: ORTIZ Chester6370 [facility] [id number] Cholesterol mass conc 217 mg/dL Abnormal 100-199 Com prehensive Internal Medicine Work Phone: Comment on above: PATIENT WAS FASTINGP ERFORMED BY: ORTIZ Chester6370 [facility] [id number] Triglyceride mass conc 203 mg/dL Abnormal 0-149 Co fitzgibbon hospitalensive Internal Medicine Work Phone: Comment on above: PATIENT WAS FASTINGP ERFORMED BY: ORTIZ Crowelin6370 [facility] [id number] METABOLIC PANEL, COMPREHENSI VE (41217)Ordered By: Head Esthetician on 06-26-2014 Albumin mass conc 4.0 g/dL Normal 3.5-4.8 Compreh ensive Internal Medicine Work Phone: Comment on above: PATIENT WAS FASTINGP ERFORMED BY: ORTIZ Crowelin6370 Rodriguez RoadMililani [place] [id number] Albumin/Globulin mass ratio 1.7 {ratio} Normal 1.1-2.5 [facility] Work Phone: Comment on above: PATIENT WAS FASTINGP ERFORMED BY: [facility] Ntfspv9200 Rodriguez RoadDublin [place] [id number] ALP enzyme act/vol 80 [iU]/L Normal 39-117 [facility] Internal Medicine Work Phone: Comment on above: PATIENT WAS FASTINGP ERFORMED BY: [facility] Wdoxbe3685 Rodriguez RoadDublin [place] [id number] ALT enzyme act/vol 8 [iU]/L Normal 0-32 [facility] Internal Medicine Work Phone: Comment on above: PATIENT WAS FASTINGP ERFORMED BY: [facility] Jniaoi0070 [address] Roadblin [place] [id number] AST enzyme act/vol 10 [iU]/L Normal 0-40 [facility] Internal Medicine Work Phone: Comment on above: PATIENT WAS FASTINGP ERFORMED BY: [facility] Paetaq4814 Rodriguez RoadDublin [place] [id number] Bilirubin mass conc 0.3 mg/dL Normal 0.0-1.2 [facility] Internal Medicine Work Phone: Comment on above: PATIENT WAS FASTINGP ERFORMED BY: [facility] Rrslct1885 Rodriguez RoadDublin [place] [id number] Calcium mass conc 9.4 mg/dL Normal 8.6-10.[address] [facility]ose[facility] hospitalive Internal Medicine Work Phone: Comment on above: PATIENT WAS FASTINGP ERFORMED BY: [facility] Qunoto1179 Rodriguez RoadDublin [place] [id number] Chloride molar conc 100 mmol/L Normal 97-108 Compr ensive Internal Medicine Work Phone: Comment on above: PATIENT WAS FASTINGP ERFORMED BY: [facility] Fpjgwp3949 Rodriguez RoadDublin [place] [id number] CO2 molar conc 26 mmol/L Normal 18-29 Comprehens trupti Internal Medicine Work Phone: Comment on above: PATIENT WAS FASTINGP ERFORMED BY: ORTIZ [facility] Repmyc6320 [address] RoadDublin [place] [id number] Creatinine mass conc 0.80 mg/dL Normal 0.57-1.00 Comp rehensive Internal Medicine Work Phone: Comment on above: PATIENT WAS FASTINGP ERFORMED BY: ORTIZ [facility] Drsntu8343 Rodriguez RoadDublin [place] [id number] GFR/1.73 sq M predicted among blacks CKD-EPI vol rate/area (S/P/Bld) 83 mL/min/1.73 Normal [facility] Work Phone: Comment on above: PATIENT WAS FASTINGP ERFORMED BY: ORTIZ [facility] Afqrcc9014 Rodriguez RoadDublin [place] [id number] GFR/1.73 sq M predicted among non-blacks CKD-EPI vol rate/area (S/P/Bld) 72 mL/min/1.73 Normal Comprehensiv e Internal Medicine Work Phone: Comment on above: PATIENT WAS FASTINGP ERFORMED BY: ORTIZ [facility] Mxabzk7309 [address] Roadblin [place] [id number] Globulin mass conc (S) 2.3 g/dL Normal 1.5-4.5 Co fitzgibbon hospitalensive Internal Medicine Work Phone: Comment on above: PATIENT WAS FASTINGP ERFORMED BY: [facility] Zmsemi[address] Formerly [facility] HospitalD[facility] [place] [id number] Glucose mass conc 90 mg/dL Normal 65-99 Compreh ensive Internal Medicine Work Phone: Comment on above: PATIENT WAS FASTINGP ERFORMED BY: [facility] Vodwqs15[address] Formerly [facility] HospitalD[facility] [place] [id number] Potassium molar conc 4.0 mmol/L Normal 3.5-5.2 Comp rehensive Internal Medicine Work Phone: Comment on above: PATIENT WAS FASTINGP ERFORMED BY: ORTIZ [facility] Pgsyzh0545 Rodriguez RoadDublin [place] [id number] Protein mass conc 6.3 g/dL Normal 6.0-8.5 Compreh ensive Internal Medicine Work Phone: Comment on above: PATIENT WAS FASTINGP ERFORMED BY: ORTIZ [facility] Cxjvvg3330 [address] [facility]in [place] [id number] Sodium molar conc 142 mmol/L Normal 134-144 Compreh ensive Internal Medicine Work Phone: Comment on above: PATIENT WAS FASTINGP ERFORMED BY: ORTIZ [facility] Lloyga4[address] [facility]in [place] [id number] Urea nitrogen mass conc 10 mg/dL Normal 8-27 [facility] Work Phone: Comment on above: PATIENT WAS FASTINGP ERFORMED BY: ORTIZ [facility] Lgfetm4587 [address] [facility] [id number] Urea nitrogen/Creatinine mass ratio 13 mg/mg Normal 11-26 [facility] Work Phone: Comment on above: PATIENT WAS FASTINGP ERFORMED BY: ORTIZ [facility] Fzqbdj8244 [facility] [id number] MICROALBUMINOrdered By: Smartisan em Preservative Filler Machine Operator on 06-26-2014 Albumin DL <= 20 mg/L mass conc (U) 12.3 ug/mL Normal 0.0-17.0 [facility] Work Phone: Comment on above: PATIENT WAS FASTINGP ERFORMED BY: ORTIZ [facility] Bitxei5315 [facility] [id number] Albumin/Creatinine mass ratio (U) 7.0 {mg/g_creat} Normal 0.0-30.0 [facility] Work Phone: Comment on above: PATIENT WAS FASTINGP ERFORMED BY: [facility] Edvaqb2120 [address] [facility] [id number] Creatinine mass conc (U) 176.5 mg/dL Normal 15.0-278.0 [facility] Work Phone: Comment on above: PATIENT WAS FASTINGP ERFORMED BY: ORTIZ [facility] Dborkh6019 [address] [facility] [id number] TSH (01931)Ordered By: Syste m Preservative Filler Machine Operator on 06-26-2014 Thyrotropin Qn 1.220 {uIU/mL} Normal 0.450-4.50 0 [facility] Work Phone: Comment on above: PATIENT WAS FASTINGP ERFORMED BY: ORTIZ MeenaAleksandr CroweLugkcj7192 Rodriguez RoadDublin [place] [id number] URINALYSIS, W/ MICRO ([id number]) Ordered By: Head Esthetician on 06-26-2014 Appearance Nom (U) Clear Normal Compre hensive Internal Medicine Work Phone: Comment on above: PATIENT WAS FASTINGP ERFORMED BY: ORTIZ MeenaAleksandr CroweEwfxrc0487 Rodriguez RoadDublin [place] [id number] Bilirubin Ql (U) Negative Normal Comprehe nsive Internal Medicine Work Phone: Comment on above: PATIENT WAS FASTINGP ERFORMED BY: ORTIZ Crowelin6370 [address] RoadDuin [place] [id number] Color Nom (U) Yellow Normal Comprehensi ve Internal Medicine Work Phone: Comment on above: PATIENT WAS FASTINGP ERFORMED BY: ORTIZ Crowelin6[address] RoadDublin [place] [id number] Glucose Ql (U) Negative Normal Comprehens trupti Internal Medicine Work Phone: Comment on above: PATIENT WAS FASTINGP ERFORMED BY: ORTIZ Crowelin6[address] Roadblin [place] [id number] Hemoglobin Ql (U) Negative Normal Compreh ensive Internal Medicine Work Phone: Comment on above: PATIENT WAS FASTINGP ERFORMED BY: ORTIZ Crowelin6[address] RoadDublin [place] [id number] Ketones Ql (U) Negative Normal Comprehens trupti Internal Medicine Work Phone: Comment on above: PATIENT WAS FASTINGP ERFORMED BY: ORTIZ LabAleksandr CroweMqewcz9385 Rodriguez RoadDublin [place] [id number] Leukocyte esterase Test strip Ql (U) Negative Normal [facility] Work Phone: Comment on above: PATIENT WAS FASTINGP ERFORMED BY: ORTIZ Crowelin6[address] RoadDublin [place] [id number] Microscopic observation LM Nom (Urine sed) See below: Normal [facility] Work Phone: Comment on above: Microscopic was derrick cated and was performed. PATIENT WAS FASTINGP ERFORMED BY: ORTIZ Crowelin[address] [facility] Hospitalblin [place] [id number] Microscopic observation LM Nom (Urine sed) MICRON Normal [facility] Work Phone: Comment on above: Microscopic follows if indicated. PATIENT WAS FASTINGP ERFORMED BY: ORTIZ Chester[address] [facility]in [place] [id number] Nitrite Ql (U) Negative Normal Comprehens trupti Internal Medicine Work Phone: Comment on above: PATIENT WAS FASTINGP ERFORMED BY: ORTIZ Chester[address] [facility]in [place] [id number] pH (U) 5.5 [pH] Normal 5.0-7.5 [facility] Work Phone: Comment on above: PATIENT WAS FASTINGP ERFORMED BY: ORTIZ Crowelin6[address] [facility] [id number] Protein Ql (U) Negative Normal Comprehens trupti Internal Medicine Work Phone: Comment on above: PATIENT WAS FASTINGP ERFORMED BY: ORTIZ Crowelin6370 [facility] [id number] Specific gravity Relative Density (U) 1.020 1 Normal 1.005-1.03 0 [facility] Work Phone: Comment on above: PATIENT WAS FASTINGP ERFORMED BY: ORTIZ [facility]Bo[facility] Fmgpun3664 [address] [facility] [id number] Urobilinogen Test strip mass conc (U) 0.2 mg/dL Normal 0.0-1.9 Comprehensiv e Internal Medicine Work Phone: Comment on above: PATIENT WAS FASTINGP ERFORMED BY: ORTIZ [facility] Ltiwxg4368 [address] [facility]in [place] [id number] Vitamin D Hydroxy (76348)Ord ered By: Head Esthetician on 06-26-2014 25-Hydroxyvitamin D2+25-Hydroxyvitamin D3 mass conc 38.9 ng/mL Normal 30.0-100.0 [facility] Work Phone: Comment on above: Vitamin D deficiency has been defined by the [place] ofMedicine and an Endocrine Society practice guideline as alevel of serum 25-OH vitamin D less than 20 ng/mL (1,2).The Endocrine Society went on to further define vitamin Dinsufficiency as a level between 21 and 29 ng/mL (2).1. IOM ([place] of Medicine). 2010. Dietary reference intakes for calcium and D. [place]: The National Academies Press.2. Allie MF, Emile PONCE, Natalie POOLE, et al. Evaluation, treatment, and prevention of vitamin D deficiency: an Endocrine Society clinical practice guideline. JCEM. 2010; 96(7):1911-30. PATIENT WAS FASTINGP ERFORMED BY: Nekted70 [address] [employer] [place] [id number] URINE IBRAHIMA CULTURE-IDENTIFICA [place] (53904)Ordered By: Head Esthetician on 04-17-2014 Bacteria identified Cx Nom (U) Escherichia coli Abnormal [facility] Work Phone: Comment on above: Greater than 100,000 colony forming units per mL PATIENT NOT FASTINGP ERFORMED BY: [employer] Boardin [place] [id number] Information: [id number] Bacteria identified Cx Nom (U) Final report Abnormal [facility] Work Phone: Comment on above: PATIENT NOT FASTINGP ERFORMED BY: [employer] [place] [id number] Information: [id number] Other [facility] [employer] prehensive Internal Medicine Work Phone: Comment on above: S = Susceptibl e; I = Intermediate; R = Resistant P = Positive; N = Negative MICS are expressed in micrograms per mL Antibiotic RSLT#1 RSLT#2 RSLT#3 RSLT#4Amoxicillin/Clavulanic Acid SAmpicillin SCefepime SCeftriaxone SCefuroxime SCephalothin SCiprofloxacin SErtapenem SGentamicin SImipenem SLevofloxacin SNitrofurantoin SPiperacillin STetracycline STobramycin STrimethoprim/Sulfa S PATIENT NOT FASTINGP ERFORMED BY: ORTIZ Chester6370 [facility] [id number] Information: [id number] Urinalysis, Office (03007)Or dered By: Alyson Dixon on 04-17-2014 Bilirubin [...] Medicine Work Phone: CBC WITH MANUAL DIFF (44269) Ordered By: Head Esthetician on 04-06-2014 Basophils #/vol (Bld) 0.0 {x10E3/uL} Normal 0.0-0.2 [facility] Work Phone: Comment on above: PATIENT NOT FASTINGP ERFORMED BY: ORTIZ Crowelin6[address] [facility] [id number] Information: [id number] Basophils/100 WBC (Bld) 0 % Normal 0-3 [facility] Work Phone: Comment on above: PATIENT NOT FASTINGP ERFORMED BY: ORTIZ Acqua InnovationsAleksandr CroweYfagjr1950 [facility] [id number] Information: 731211,[id number] Eosinophils #/vol (Bld) 0.1 {x10E3/uL} Normal 0.0-0.4 [facility] Work Phone: Comment on above: PATIENT NOT FASTINGP ERFORMED BY: [facility]CoP[facility] Medicine [facility] CenterAonsuh4793 [facility] [id number] Information: [id number] Eosinophils/100 WBC (Bld) 2 % Normal 0-5 [facility] Work Phone: Comment on above: PATIENT NOT FASTINGP ERFORMED BY: [facility]CoPenn Medicine [facility] CenterEuxdhp5777 [facility] [id number] Information: [id number],[id number] Erythrocyte distribution width Ratio (RBC) 13.5 % Normal 12.3-15.4 [facility] Work Phone: Comment on above: PATIENT NOT FASTINGP ERFORMED BY: [facility] Qllfgh5568 [facility] [id number] Information: [id number] Hematocrit Volume Fraction (Bld) 38.1 % Normal 34.0-46.6 [facility] Work Phone: Comment on above: PATIENT NOT FASTINGP ERFORMED BY: [facility] Aoceja3439 [facility] [id number] Information: [id number] Hemoglobin mass conc (Bld) 12.8 g/dL Normal 11.1-15.9 [facility] Work Phone: Comment on above: PATIENT NOT FASTINGP ERFORMED BY: [facility] Ylngcb4436 [facility] [id number] Information: [id number],[id number] Immature granulocytes #/vol (Bld) 0.0 {x10E3/uL} Normal 0.0-0.1 [facility] Work Phone: Comment on above: PATIENT NOT FASTINGP ERFORMED BY: CB [facility] Yppedk2517 [facility] [id number] Information: 548133,[id number] Immature granulocytes/100 WBC (Bld) 0 % Normal 0-2 [facility] Work Phone: Comment on above: PATIENT NOT FASTINGP ERFORMED BY: ORTIZ HouJulian V[place] 1010670 [facility] [id number] Information: [id number] Lymphocytes #/vol (Bld) 1.5 {x10E3/uL} Normal 0.7-3.1 [facility] Work Phone: Comment on above: PATIENT NOT FASTINGP ERFORMED BY: 00 [address] [id number] Information: [id number] Lymphocytes/100 WBC (Bld) 26 % Normal 14-46 [facility] Work Phone: Comment on above: PATIENT NOT FASTINGP ERFORMED BY: [address] [id number] Information: [id number] MCH Entitic mass (RBC) 31.1 pg Normal 26.6-33.0 [facility] Internal Medicine Work Phone: Comment on above: PATIENT NOT FASTINGP ERFORMED BY: [address] [id number] Information: [id number] MCHC mass conc (RBC) 33.6 g/dL Normal 31.5-35.7 [facility] Internal Medicine Work Phone: Comment on above: PATIENT NOT FASTINGP ERFORMED BY: [address] [id number] Information: [id number] MCV Entitic volume (RBC) 93 fL Normal 79-97 [facility] Internal Medicine Work Phone: Comment on above: PATIENT NOT FASTINGP ERFORMED BY: [address] [id number] Information: [id number] Monocytes #/vol (Bld) 0.5 {x10E3/uL} Normal 0.1-0.9 [facility] Work Phone: Comment on above: PATIENT NOT FASTINGP ERFORMED BY: ORTIZ Chester6370 [facility] [id number] Information: 109619,[id number] Monocytes/100 WBC (Bld) 9 % Normal 4-12 [facility] Work Phone: Comment on above: PATIENT NOT FASTINGP ERFORMED BY: ORTIZ RobledoCoJul[place] 1010670 [facility] [id number] Information: 294708,[id number] Neutrophils #/vol (Bld) 3.5 {x10E3/uL} Normal 1.4-7.0 [facility] Work Phone: Comment on above: PATIENT NOT FASTINGP ERFORMED BY: [facility] Xvcsuz2725 [facility] [id number] Information: [id number] Neutrophils/100 WBC (Bld) 63 % Normal 40-74 [facility] Work Phone: Comment on above: PATIENT NOT FASTINGP ERFORMED BY: ORTIZ Hou Askmjw9578 [facility] [id number] Information: 594239,Y75633 Platelets #/vol (Bld) 193 {x10E3/uL} Normal 150-379 [facility] Work Phone: Comment on above: PATIENT NOT FASTINGP ERFORMED BY: ORTIZ [facility]6370 [facility] [id number] Information: 476321,[id number] RBC #/vol (Bld) 4.12 {x10E6/uL} Normal 3.77-5.28 [facility] Internal Medicine Work Phone: Comment on above: PATIENT NOT FASTINGP ERFORMED BY: ORTIZ LabCoPenn Medicine [facility] CenterBeqnzn5940 [facility] [id number] Information: [id number] WBC #/vol (Bld) 5.6 {x10E3/uL} Normal 3.4-10.8 [facility] Internal Medicine Work Phone: Comment on above: PATIENT NOT FASTINGP ERFORMED BY: ORTIZ Nilda Utuklq6[address] RoadDublin [place] [id number] Information: [id number] LIPID PANEL (78073)Ordered B y: Head Esthetician on 04-06-2014 Cholesterol in HDL mass conc 54 mg/dL Normal [facility] Work Phone: Comment on above: According to ATP-III Guidelines, HDL-C >59 mg/dL is considered anegative risk factor for CHD. PATIENT NOT FASTINGP ERFORMED BY: ORTIZ Crowelin6370 [address] RoadFormerly [facility] Countyin [place] [id number] Cholesterol in LDL mass conc 63 mg/dL Normal 0-99 [facility] Work Phone: Comment on above: PATIENT NOT FASTINGP ERFORMED BY: ORTIZ Crowelin6[address] [facility]in [place] [id number] Cholesterol in LDL/Cholesterol in HDL mass ratio 1.2 {ratio_units} Normal 0.0-3.2 [facility] Work Phone: Comment on above: PATIENT NOT FASTINGP ERFORMED BY: ORTIZ Crowelin[address] Formerly [facility] HospitalDublin [place] [id number] Cholesterol in VLDL mass conc 41 mg/dL Abnormal 5-40 [facility] Work Phone: Comment on above: PATIENT NOT FASTINGP ERFORMED BY: ORTIZ MeenaAleksandr CroweZqmsoy[address] Formerly [facility] HospitalDublin [place] [id number] Cholesterol mass conc 158 mg/dL Normal 100-199 Com prehensive Internal Medicine Work Phone: Comment on above: PATIENT NOT FASTINGP ERFORMED BY: ORTIZ LablAeksandr CroweKeuvym8694 [address] RoadDublin [place] [id number] Triglyceride mass conc 206 mg/dL Abnormal 0-149 [facility] Internal Medicine Work Phone: Comment on above: PATIENT NOT FASTINGP ERFORMED BY: ORTIZ LabAleksandr CrowePmsvdp4320 [address] Formerly [facility] HospitalDublin [place] [id number] METABOLIC PANEL, COMPREHENSI VE (13575)Ordered By: Head Esthetician on 04-06-2014 Albumin mass conc 4.3 g/dL Normal 3.5-4.8 Compreh ensive Internal Medicine Work Phone: Comment on above: PATIENT NOT FASTINGP ERFORMED BY: CB [facility] Yrnybi2731 [address] RoadDublin [place] [id number] Albumin/Globulin mass ratio 2.2 {ratio} Normal 1.1-2.5 [facility] Work Phone: Comment on above: PATIENT NOT FASTINGP ERFORMED BY: CB [facility] Yusave7534 Rodriguez RoadDublin [place] [id number] ALP enzyme act/vol 87 [iU]/L Normal 39-117 [facility] Internal [facility] Work Phone: Comment on above: PATIENT NOT FASTINGP ERFORMED BY: CB [facility] Fxcenf8705 [address] RoadDublin [place] [id number] ALT enzyme act/vol 14 [iU]/L Normal 0-32 Compre [facility] Internal Medicine Work Phone: Comment on above: PATIENT NOT FASTINGP ERFORMED BY: CB [facility] Ascbyx2386 [address] RoadDublin [place] [id number] AST enzyme act/vol 18 [iU]/L Normal 0-40 [facility] Internal Medicine Work Phone: Comment on above: PATIENT NOT FASTINGP ERFORMED BY: CB [facility] Rzebjs7749 [address] RoadDublin [place] [id number] Bilirubin mass conc 0.3 mg/dL Normal 0.0-1.[address] Internal Medicine Work Phone: Comment on above: PATIENT NOT FASTINGP ERFORMED BY: CB [facility] Karaiw3301 [address] RoadDublin [place] [id number] Calcium mass conc 10.0 mg/dL Normal 8.6-10.[address] [facility] hospitalive Internal Medicine Work Phone: Comment on above: PATIENT NOT FASTINGP ERFORMED BY: CB [facility] Mdqgxh9297 [address] RoadDublin [place] [id number] Chloride molar conc 101 mmol/L Normal 97-108 Compr ehensive Internal Medicine Work Phone: Comment on above: PATIENT NOT FASTINGP ERFORMED BY: ORTIZ Chester[address] [facility]in [place] [id number] CO2 molar conc 28 mmol/L Normal 18-29 Comprehens trupti Internal Medicine Work Phone: Comment on above: PATIENT NOT FASTINGP ERFORMED BY: ORTIZ LabCoaustyn CrowePflshy9065 [address] [facility] [id number] Creatinine mass conc 0.73 mg/dL Normal 0.57-1.00 Comp rehensive Internal Medicine Work Phone: Comment on above: PATIENT NOT FASTINGP ERFORMED BY: ORTIZ Chester6370 [facility] [id number] GFR/1.73 sq M predicted among blacks CKD-EPI vol rate/area (S/P/Bld) 94 mL/min/1.73 Normal [facility] Work Phone: Comment on above: PATIENT NOT FASTINGP ERFORMED BY: ORTIZ LabAleksandr CrowePafeea8660 [address] [facility] [id number] GFR/1.73 sq M predicted among non-blacks CKD-EPI vol rate/area (S/P/Bld) 81 mL/min/1.73 Normal Comprehensiv e Internal Medicine Work Phone: Comment on above: PATIENT NOT FASTINGP ERFORMED BY: ORTIZ LabAleksandr Smkiqj1206 [facility] [id number] Globulin mass conc (S) 2.0 g/dL Normal 1.5-4.5 Co mprehensive Internal Medicine Work Phone: Comment on above: PATIENT NOT FASTINGP ERFORMED BY: ORTIZ [facility] Sbpana3793 [address] [facility] [id number] Glucose mass conc 87 mg/dL Normal 65-99 Compreh ensive Internal Medicine Work Phone: Comment on above: PATIENT NOT FASTINGP ERFORMED BY: ORTIZ [facility] Sudbyt5201 [address] [facility] [id number] Potassium molar conc 5.0 mmol/L Normal 3.5-5.2 Comp rehensive Internal Medicine Work Phone: Comment on above: PATIENT NOT FASTINGP ERFORMED BY: ORTIZ Chester[address] [facility]in [place] [id number] Protein mass conc 6.3 g/dL Normal 6.0-8.5 Compreh ensive Internal Medicine Work Phone: Comment on above: PATIENT NOT FASTINGP ERFORMED BY: ORTIZ Chester[address] [facility]in [place] [id number] Sodium molar conc 142 mmol/L Normal 134-144 Compreh ensive Internal Medicine Work Phone: Comment on above: PATIENT NOT FASTINGP ERFORMED BY: ORTIZ Chester[address] [facility]in [place] [id number] Urea nitrogen mass conc 12 mg/dL Normal 8-27 [facility] Work Phone: Comment on above: PATIENT NOT FASTINGP ERFORMED BY: ORTIZ Chester[address] [facility]in [place] [id number] Urea nitrogen/Creatinine mass ratio 16 mg/mg Normal 11-26 [facility] Work Phone: Comment on above: PATIENT NOT FASTINGP ERFORMED BY: ORTIZ Chester[address] [facility]in [place] [id number] TSH (65605)Ordered By: Serenae m Preservative Filler Machine Operator on 04-06-2014 Thyrotropin Qn 0.748 {uIU/mL} Normal 0.450-4.50 0 [facility] Work Phone: Comment on above: PATIENT NOT FASTINGP ERFORMED BY: ORTIZ Crowelin6[address] [facility]in [place] [id number] Vitamin D Hydroxy (06837)Ord ered By: Head Esthetician on 04-06-2014 25-Hydroxyvitamin D2+25-Hydroxyvitamin D3 mass conc 29.5 ng/mL Abnormal 30.0-100.0 [facility] Work Phone: Comment on above: Vitamin D deficiency has been defined by the [place] ofMedicine and an Endocrine Society practice guideline as alevel of serum 25-OH vitamin D less than 20 ng/mL (1,2).The Endocrine Society went on to further define vitamin Dinsufficiency as a level between 21 and 29 ng/mL (2).1. IOM ([place] of Medicine). 2010. Dietary reference intakes for calcium and D. [place]: The National Academies Press.2. Allie MF, Emile NC, Natalie POOLE, et al. Evaluation, treatment, and prevention of vitamin D deficiency: an Endocrine Society clinical practice guideline. JCEM. 2010; 96(7):1911-30. PATIENT NOT FASTINGP ERFORMED BY: CB [facility] Ikppdt8214 [address] RoadDublin [place] [id number] CBC WITH MANUAL DIFF (15327) Ordered By: Head Esthetician on 12-22-2013 Basophils #/vol (Bld) 0.0 {x10E3/uL} Normal 0.0-0.2 [facility] Work Phone: Comment on above: PATIENT NOT FASTINGP ERFORMED BY: CB [facility] Rstflv2718 [address] RoadDublin [place] [id number] Information: [id number], 616032 Basophils/100 WBC (Bld) 0 % Normal 0-3 [facility] Work Phone: Comment on above: PATIENT NOT FASTINGP ERFORMED BY: CB [facility] Uurowg1979 [address] RoadDublin [place] [id number] Information: W00575, 241929 Eosinophils #/vol (Bld) 0.1 {x10E3/uL} Normal 0.0-0.4 [facility] Work Phone: Comment on above: PATIENT NOT FASTINGP ERFORMED BY: CB [facility] Mxrgyz3236 [address] RoadDublin [place] [id number] Information: H93198, 085557 Eosinophils/100 WBC (Bld) 2 % Normal 0-5 [facility] Work Phone: Comment on above: PATIENT NOT FASTINGP ERFORMED BY: CB [facility] Iwftxq3782 [address] RoadDublin [place] [id number] Information: [id number], 484387 Erythrocyte distribution width Ratio (RBC) 13.7 % Normal 12.3-15.4 [facility] Work Phone: Comment on above: PATIENT NOT FASTINGP ERFORMED BY: ORTIZ Chester6370 [facility] [id number] Information: A62370, 500595 Hematocrit Volume Fraction (Bld) 38.4 % Normal 34.0-46.6 [facility] Work Phone: Comment on above: PATIENT NOT FASTINGP ERFORMED BY: ORTIZ [place] 6880370 [facility] [id number] Information: L78044, 613830 Hemoglobin mass conc (Bld) 12.8 g/dL Normal 11.1-15.9 [facility] Work Phone: Comment on above: PATIENT NOT FASTINGP ERFORMED BY: [place] 4548670 [facility] [id number] Information: L93985, 020454 Immature granulocytes #/vol (Bld) 0.0 {x10E3/uL} Normal 0.0-0.1 [facility] Work Phone: Comment on above: PATIENT NOT FASTINGP ERFORMED BY: ORTIZ Hou Iraltb6750 [facility] [id number] Information: F65613, 762734 Immature granulocytes/100 WBC (Bld) 0 % Normal 0-2 [facility] Work Phone: Comment on above: PATIENT NOT FASTINGP ERFORMED BY: ORTIZ [place] 6880370 [facility] [id number] Information: [id number], 818052 Lymphocytes #/vol (Bld) 1.1 {x10E3/uL} Normal 0.7-3.1 [facility] Work Phone: Comment on above: PATIENT NOT FASTINGP ERFORMED BY: ORTIZ [place] 6880370 [facility] [id number] Information: F35251, 392949 Lymphocytes/100 WBC (Bld) 22 % Normal 14-46 [facility] Work Phone: Comment on above: PATIENT NOT FASTINGP ERFORMED BY: ORTIZ LabCo Ulhgos6005 [facility] [id number] Information: Q95121, 602818 MCH Entitic mass (RBC) 30.6 pg Normal 26.6-33.0 [facility] Internal Medicine Work Phone: Comment on above: PATIENT NOT FASTINGP ERFORMED BY: ORTIZ LabCoJulian Ville 1010670 [facility] [id number] Information: G19570, 811111 MCHC mass conc (RBC) 33.3 g/dL Normal 31.5-35.7 [facility] Internal Medicine Work Phone: Comment on above: PATIENT NOT FASTINGP ERFORMED BY: [place] 4548670 [facility] [id number] Information: W43602, 129100 MCV Entitic volume (RBC) 92 fL Normal 79-97 [facility] Internal Medicine Work Phone: Comment on above: PATIENT NOT FASTINGP ERFORMED BY: MeenaCo Nzagge9147 [facility] [id number] Information: T77152, 302923 Monocytes #/vol (Bld) 0.4 {x10E3/uL} Normal 0.1-0.9 [facility] Work Phone: Comment on above: PATIENT NOT FASTINGP ERFORMED BY: LabCoPenn Medicine Princeton Medical CenterBefysd8320 [facility] [id number] Information: I22494, 531761 Monocytes/100 WBC (Bld) 8 % Normal 4-12 [facility] Work Phone: Comment on above: PATIENT NOT FASTINGP ERFORMED BY: LabCoPenn Medicine Princeton Medical CenterUviyoy9045 [facility] [id number] Information: O53536, 410224 Neutrophils #/vol (Bld) 3.3 {x10E3/uL} Normal 1.4-7.0 [facility] Work Phone: Comment on above: PATIENT NOT FASTINGP ERFORMED BY: ORTIZ LabCoaustyn ChesterFxbpvz2157 [facility] [id number] Information: F75244, 387875 Neutrophils/100 WBC (Bld) 68 % Normal 40-74 [facility] Internal Medicine Work Phone: Comment on above: PATIENT NOT FASTINGP ERFORMED BY: CB [facility]Corp Xapekk1638 [facility] [id number] Information: R61890, 049590 Platelets #/vol (Bld) 190 {x10E3/uL} Normal 155-379 [facility] Internal Medicine Work Phone: Comment on above: PATIENT NOT FASTINGP ERFORMED BY: ORTIZ RobledoCoaustyn ChesterTibcia2978 [facility] [id number] Information: V31646, 256032 RBC #/vol (Bld) 4.18 {x10E6/uL} Normal 3.77-5.28 [facility] Internal Medicine Work Phone: Comment on above: PATIENT NOT FASTINGP ERFORMED BY: ORTIZ RobledoCorp Hdakll8198 [facility] [id number] Information: H97117, 677682 WBC #/vol (Bld) 4.8 {x10E3/uL} Normal 3.4-10.8 [facility] Internal Medicine Work Phone: Comment on above: PATIENT NOT FASTINGP ERFORMED BY: CB [facility] Rwyroe7894 [facility] [id number] Information: O59503, 647511 D-Dimer (18060)Ordered By: Dc luong Preservative Filler Machine Operator on 12-22-2013 D-Dimer (03885) 0.40 {ug_FEU/mL} Normal 0.00-0.49 [facility] Internal Medicine Work Phone: Comment on above: In conjunction with a non-high clinical probability assessment, anormal (<0.50 ug FEU/mL) result excludes deep vein thrombosis (DVT)and pulmonary embolism (PE) with high sensitivity. PATIENT NOT FASTINGP ERFORMED BY: [employer] Qqxbhy3602 [address] Playteauformerly [facility] [id number] PT (Prothrobim Time) (77064) Ordered By: Head Esthetician on 12-22-2013 INR Coag RelTime (PPP) 1.0 {INR} Normal 0.8-1.2 [facility] Internal Medicine Work Phone: Comment on above: Reference interval i s for non-anticoagulated patients. . Suggested INR therapeutic range for Vitamin K antagonist therapy: Standard Dose (moderate intensity therapeutic range): 2.0 - 3.0 Higher intensity therapeutic range 2.5 - 3.5 PATIENT NOT FASTINGP ERFORMED BY: [employer] Pdlcdq8741 [facility] [id number] Prothrombin time (PT) Coag time (PPP) 10.6 {sec} Normal 9.1-12.0 [facility] Work Phone: Comment on above: PATIENT NOT FASTINGP ERFORMED BY: [facility] Rklhls4466 [facility] [id number] PTT (Activated Partial Throm boplastin Time) (16389)Ordered By: Head Esthetician on 12-22-2013 aPTT Coag time (PPP) 26 {sec} Normal 24-33 [facility] Internal Medicine Work Phone: Comment on above: This test has not be en validated for monitoring unfractionated heparintherapy. aPTT-based therapeutic ranges for unfractionated heparintherapy have not been established. For general guidelines onHeparin monitoring, refer to the [facility] Directory of Services. PATIENT NOT FASTINGP ERFORMED BY: [employer] Ufysni1851 [facility] [id number] MICROALBUMINOrdered By: Syst em Preservative Filler Machine Operator on 12-05-2013 Albumin DL <= 20 mg/L mass conc (U) 23.2 ug/mL Abnormal 0.0-17.0 [facility] Internal Medicine Work Phone: Comment on above: PATIENT NOT FASTINGP ERFORMED BY: [facility]ations[facility]6370 [facility] [id number] Albumin/Creatinine mass ratio (U) 14.1 {mg/g_creat} Normal 0.0-30.0 [facility] Work Phone: Comment on above: PATIENT NOT FASTINGP ERFORMED BY: ORTIZ LabAleksandr CroweQpmzdn[address] [facility] Hospitalblin [place] [id number] Creatinine mass conc (U) 164.8 mg/dL Normal 15.0-278.0 [facility] Internal Medicine Work Phone: Comment on above: PATIENT NOT FASTINGP ERFORMED BY: ORTIZ [facility] Uazswg4327 [address] [facility] [id number] URINALYSIS, W/ MICRO (18884) Ordered By: Head Esthetician on 12-05-2013 Appearance Nom (U) Cloudy Abnormal Compre hensive Internal Medicine Work Phone: Comment on above: PATIENT NOT FASTINGP ERFORMED BY: ORTIZ [facility] Qwocsd5753 [address] Roadformerly [facility] [id number] Information: H73911 Bilirubin Ql (U) Negative Normal Comprehe nsive Internal Medicine Work Phone: Comment on above: PATIENT NOT FASTINGP ERFORMED BY: ORTIZ LabCo Cybohj0520 [address] [facility] [id number] Information: E23073 Color Nom (U) Yellow Normal Comprehensi Internal Medicine Work Phone: Comment on above: PATIENT NOT FASTINGP ERFORMED BY: ORTIZ [facility] Xicvtq1465 [address] [facility] [id number] Information: A59825 Glucose Ql (U) Negative Normal Comprehens trupti Internal Medicine Work Phone: Comment on above: PATIENT NOT FASTINGP ERFORMED BY: ORTIZ [facility] Wpuonj9268 [address] RoadFormerly [facility] Countyin [place] [id number] Information: L83397 Hemoglobin Ql (U) Negative Normal Compreh ensive Internal Medicine Work Phone: Comment on above: PATIENT NOT FASTINGP ERFORMED BY: ORTIZ [facility] Cwgfnh2746 [address] [facility]in [place] [id number] Information: C71293 Ketones Ql (U) Negative Normal Comprehens trupti Internal Medicine Work Phone: Comment on above: PATIENT NOT FASTINGP ERFORMED BY: ORTIZ Crowelin6370 [address] [facility] [id number] Information: Q93552 Leukocyte esterase Test strip Ql (U) Negative Normal [facility] Work Phone: Comment on above: PATIENT NOT FASTINGP ERFORMED BY: ORTIZ Hou Ejgzho8853 [address] [facility] [id number] Information: L89372 Microscopic observation LM Nom (Urine sed) See below: Normal [facility] Work Phone: Comment on above: PATIENT NOT FASTINGP ERFORMED BY: ORTIZ Hou Rcssxe3929 [address] [facility] [id number] Information: D59515 Microscopic observation LM Nom (Urine sed) MICRON Normal [facility] Work Phone: Comment on above: Microscopic follows if indicated. PATIENT NOT FASTINGP ERFORMED BY: ORTIZ Ameya Raespf9921 [address] [facility] [id number] Information: N31562 Nitrite Ql (U) Negative Normal Comprehens trupti Internal Medicine Work Phone: Comment on above: PATIENT NOT FASTINGP ERFORMED BY: ORTIZ Hou Qhyquc6901 [facility] [id number] Information: Z46525 pH (U) 5.0 [pH] Normal 5.0-7.5 [facility] Work Phone: Comment on above: PATIENT NOT FASTINGP ERFORMED BY: ORTIZ LabBo[facility] Center Olaiwl0408 [address] [facility] [id number] Information: Z64189 Protein Ql (U) Negative Normal Comprehens trupti Internal Medicine Work Phone: Comment on above: PATIENT NOT FASTINGP ERFORMED BY: ORTIZ RobledoCorp Thialg0327 [address] [facility] [id number] Information: H20121 Specific gravity Relative Density (U) 1.017 1 Normal 1.005-1.03 0 [facility] Work Phone: Comment on above: PATIENT NOT FASTINGP ERFORMED BY: [facility] Bkafou1385 [facility] [id number] Information: K40449 Urobilinogen Test strip mass conc (U) 0.2 mg/dL Normal 0.0-1.9 Comprehensiv e Internal Medicine Work Phone: Comment on above: PATIENT NOT FASTINGP ERFORMED BY: [address] [id number] Information: J90147 CBC WITH MANUAL DIFF (68369) Ordered By: Head Esthetician on 12-01-2013 Basophils #/vol (Bld) 0.0 {x10E3/uL} Normal 0.0-0.2 [facility] Work Phone: Comment on above: PATIENT WAS FASTINGP ERFORMED BY: [place] 4548670 [facility] [id number] Information: 049372,Z16235 Basophils/100 WBC (Bld) 0 % Normal 0-3 [facility] Work Phone: Comment on above: PATIENT WAS FASTINGP ERFORMED BY: MeenaKimberly [place] 2627470 [facility] [id number] Information: 086201,T85354 Eosinophils #/vol (Bld) 0.1 {x10E3/uL} Normal 0.0-0.4 [facility] Work Phone: Comment on above: PATIENT WAS FASTINGP ERFORMED BY: [place] 4548670 [facility] [id number] Information: 762110,R58054 Eosinophils/100 WBC (Bld) 1 % Normal 0-5 [facility] Work Phone: Comment on above: PATIENT WAS FASTINGP ERFORMED BY: [place] 4548670 [facility] [id number] Information: 472032,E92920 Erythrocyte distribution width Ratio (RBC) 13.5 % Normal 12.3-15.4 [facility] Work Phone: Comment on above: PATIENT WAS FASTINGP ERFORMED BY: ORTIZ [facility] Snackv9588 [facility] [id number] Information: 572518,W02722 Hematocrit Volume Fraction (Bld) 40.8 % Normal 34.0-46.6 [facility] Work Phone: Comment on above: PATIENT WAS FASTINGP ERFORMED BY: [address] [id number] Information: 277698,T22521 Hemoglobin mass conc (Bld) 13.2 g/dL Normal 11.1-15.9 [facility] Work Phone: Comment on above: PATIENT WAS FASTINGP ERFORMED BY: ORTIZ [address] [id number] Information: 933081,U22750 Immature granulocytes #/vol (Bld) 0.0 {x10E3/uL} Normal 0.0-0.1 [facility] Internal Medicine Work Phone: Comment on above: PATIENT WAS FASTINGP ERFORMED BY: ORTIZ [facility] Velxav[address] [id number] Information: [id number] Immature granulocytes/100 WBC (Bld) 0 % Normal 0-2 [facility] Work Phone: Comment on above: PATIENT WAS FASTINGP ERFORMED BY: [address] [id number] Information: [id number] Lymphocytes #/vol (Bld) 1.4 {x10E3/uL} Normal 0.7-3.1 [facility] Work Phone: Comment on above: PATIENT WAS FASTINGP ERFORMED BY: [place] 4548670 [facility] [id number] Information: [id number] Lymphocytes/100 WBC (Bld) 18 % Normal 14-46 [facility] Work Phone: Comment on above: PATIENT WAS FASTINGP ERFORMED BY: [facility]6370 [facility] [id number] Information: [id number] MCH Entitic mass (RBC) 30.1 pg Normal 26.6-33.0 [facility] Internal Medicine Work Phone: Comment on above: PATIENT WAS FASTINGP ERFORMED BY: [address] [id number] Information: [id number] MCHC mass conc (RBC) 32.4 g/dL Normal 31.5-35.7 [facility] Internal Medicine Work Phone: Comment on above: PATIENT WAS FASTINGP ERFORMED BY: [place] 4548670 [facility] [id number] Information: [id number] MCV Entitic volume (RBC) 93 fL Normal 79-97 [facility] Internal Medicine Work Phone: Comment on above: PATIENT WAS FASTINGP ERFORMED BY: [place] 4548670 [facility] [id number] Information: [id number] Monocytes #/vol (Bld) 0.6 {x10E3/uL} Normal 0.1-0.9 [facility] Work Phone: Comment on above: PATIENT WAS FASTINGP ERFORMED BY: [address] [id number] Information: [id number] Monocytes/100 WBC (Bld) 7 % Normal 4-12 [facility] Work Phone: Comment on above: PATIENT WAS FASTINGP ERFORMED BY: [facility]6370 [facility] [id number] Information: [id number],[id number] Neutrophils #/vol (Bld) 5.9 {x10E3/uL} Normal 1.4-7.0 [facility] Work Phone: Comment on above: PATIENT WAS FASTINGP ERFORMED BY: ORTIZ RobledoCoaustyn ChesterLhvjss0790 [facility] [id number] Information: [id number] Neutrophils/100 WBC (Bld) 74 % Normal 40-74 [facility] Work Phone: Comment on above: PATIENT WAS FASTINGP ERFORMED BY: [facility] Bqotnb5436 [facility] [id number] Information: [id number] Platelets #/vol (Bld) 225 {x10E3/uL} Normal 155-379 [facility] Work Phone: Comment on above: PATIENT WAS FASTINGP ERFORMED BY: [facility] Fjtlcf2239 [facility] [id number] Information: [id number] RBC #/vol (Bld) 4.38 {x10E6/uL} Normal 3.77-5.28 [facility] Internal Medicine Work Phone: Comment on above: PATIENT WAS FASTINGP ERFORMED BY: ORTIZ [facility] Zwnzss8584 [facility] [id number] Information: [id number] WBC #/vol (Bld) 8.0 {x10E3/uL} Normal 3.4-10.8 [facility] Internal Medicine Work Phone: Comment on above: PATIENT WAS FASTINGP ERFORMED BY: [facility] Tuqsua5907 [facility] [id number] Information: [id number] LIPID PANEL (35757)Ordered B y: Head Esthetician on 12-01-2013 Cholesterol in HDL mass conc 47 mg/dL Normal [facility] Work Phone: Comment on above: According to ATP-III Guidelines, HDL-C >59 mg/dL is considered anegative risk factor for CHD. PATIENT WAS FASTINGP ERFORMED BY: ORTIZ [facility] Eduuds1165 [facility] [id number] Cholesterol in LDL mass conc 50 mg/dL Normal 0-99 [facility] Work Phone: Comment on above: PATIENT WAS FASTINGP ERFORMED BY: CB [facility] Gpbbdz1850 Rodriguez RoadDublin [place] [id number] Cholesterol in LDL/Cholesterol in HDL mass ratio 1.1 {ratio_units} Normal 0.0-3.2 [facility] Work Phone: Comment on above: PATIENT WAS FASTINGP ERFORMED BY: CB [facility] Gbrdai6945 Rodriguez RoadDublin [place] [id number] Cholesterol in VLDL mass conc 35 mg/dL Normal 5-40 [facility] Work Phone: Comment on above: PATIENT WAS FASTINGP ERFORMED BY: CB [facility] Wxvpys4051 [address] RoadDublin [place] [id number] Cholesterol mass conc 132 mg/dL Normal 100-199 Com prehensive Internal Medicine Work Phone: Comment on above: PATIENT WAS FASTINGP ERFORMED BY: CB [facility] Iwdikp8573 Rodriguez RoadDuin [place] [id number] Triglyceride mass conc 177 mg/dL Abnormal 0-149 Co [facility]ib[facility] hospitalensive Internal Medicine Work Phone: Comment on above: PATIENT WAS FASTINGP ERFORMED BY: CB LabCoaustyn Yfwiza0170 [address] [facility] [id number] Lab Report: Ordered by Dr. Saritha delgado 12-01-2013 Alanine aminotransferase (ALT) 10 U/L Invalid Interpretation Code [facility] Work Phone: Alkaline phosphatase (ALP) 76 U/L Invalid Interpretation Code [facility] Work Phone: Aspartate aminotransferase (AST) 13 U/L Invalid Interpretation Code [facility] Work Phone: METABOLIC PANEL, COMPREHENSI VE (33409)Ordered By: Head Esthetician on 12-01-2013 Albumin mass conc 4.5 g/dL Normal 3.5-4.8 Compreh ensive Internal Medicine Work Phone: Comment on above: PATIENT WAS FASTINGP ERFORMED BY: CB [facility] Pfpdrq2875 Rodriguez RoadDublin [place] [id number] Albumin/Globulin mass ratio 2.1 {ratio} Normal 1.1-2.5 [facility] Work Phone: Comment on above: PATIENT WAS FASTINGP ERFORMED BY: ORTIZ LabKellieaustyn CroweDqshbx2505 [address] [facility] [place] [id number] ALP enzyme act/vol 76 [iU]/L Normal 39-117 [facility] Internal Medicine Work Phone: Comment on above: PATIENT WAS FASTINGP ERFORMED BY: ORTIZ [facility] Zaqgqc6010 [address] [facility] [place] [id number] ALT enzyme act/vol 10 [iU]/L Normal 0-32 [facility] Internal Medicine Work Phone: Comment on above: PATIENT WAS FASTINGP ERFORMED BY: ORTIZ LabAleksandr CroweLrpqzh0406 [address] [facility] [place] [id number] AST enzyme act/vol 13 [iU]/L Normal 0-40 [facility] Internal Medicine Work Phone: Comment on above: PATIENT WAS FASTINGP ERFORMED BY: ORTIZ Crowelin6370 [address] [facility] [id number] Bilirubin mass conc 0.3 mg/dL Normal 0.0-1.[address] Internal Medicine Work Phone: Comment on above: PATIENT WAS FASTINGP ERFORMED BY: ORTIZ Crowelin6370 [facility] [id number] Calcium mass conc 9.9 mg/dL Normal 8.6-10.2 Compreh ensive Internal Medicine Work Phone: Comment on above: PATIENT WAS FASTINGP ERFORMED BY: ORTIZ [facility] Dddast9211 [address] [facility] [place] [id number] Chloride molar conc 101 mmol/L Normal 97-[address] Internal Medicine Work Phone: Comment on above: PATIENT WAS FASTINGP ERFORMED BY: ORTIZ LabCoaustyn CroweWpuahz[address] [facility] Hospitalblin [place] [id number] CO2 molar conc 27 mmol/L Normal 19-28 Comprehens trupti Internal Medicine Work Phone: Comment on above: PATIENT WAS FASTINGP ERFORMED BY: [facility]6[address] [facility] [place] [id number] Creatinine mass conc 0.97 mg/dL Normal 0.57-1.00 Comp rehensive Internal Medicine Work Phone: Comment on above: PATIENT WAS FASTINGP ERFORMED BY: [facility]6370 [facility] [id number] GFR/1.73 sq M predicted among blacks CKD-EPI vol rate/area (S/P/Bld) 67 mL/min/1.73 Normal [facility] Work Phone: Comment on above: PATIENT WAS FASTINGP ERFORMED BY: [facility]6370 [facility] [id number] GFR/1.73 sq M predicted among non-blacks CKD-EPI vol rate/area (S/P/Bld) 58 mL/min/1.73 Abnormal Comprehensiv e Internal Medicine Work Phone: Comment on above: PATIENT WAS FASTINGP ERFORMED BY: [facility]6370 [facility] [id number] Globulin mass conc (S) 2.1 g/dL Normal 1.5-4.5 Co mprehensive Internal Medicine Work Phone: Comment on above: PATIENT WAS FASTINGP ERFORMED BY: [facility]6370 [facility] [id number] Glucose mass conc 99 mg/dL Normal 65-99 Compreh ensive Internal Medicine Work Phone: Comment on above: PATIENT WAS FASTINGP ERFORMED BY: [facility]6370 [facility] [id number] Potassium molar conc 4.9 mmol/L Normal 3.5-5.2 Comp rehensive Internal Medicine Work Phone: Comment on above: PATIENT WAS FASTINGP ERFORMED BY: [facility]6370 [facility] [id number] Protein mass conc 6.6 g/dL Normal 6.0-8.5 Compreh ensive Internal Medicine Work Phone: Comment on above: PATIENT WAS FASTINGP ERFORMED BY: [facility] Ghsivi[address] [facility] Hospitalblin [place] [id number] Sodium molar conc 141 mmol/L Normal 134-144 Compreh ensive Internal Medicine Work Phone: Comment on above: PATIENT WAS FASTINGP ERFORMED BY: [facility] Rziqyw9837 [address] [facility] [place] [id number] Urea nitrogen mass conc 21 mg/dL Normal 8-27 [facility] Work Phone: Comment on above: PATIENT WAS FASTINGP ERFORMED BY: [facility] Ozbswt0788 [address] [facility] [place] [id number] Urea nitrogen/Creatinine mass ratio 22 mg/mg Normal 11- [facility] Work Phone: Comment on above: PATIENT WAS FASTINGP ERFORMED BY: [facility] Lcgieg5889 [address] [facility] [id number] TSH (77284)Ordered By: Smartisane m Preservative Filler Machine Operator on 12-01-2013 Thyrotropin Qn 1.040 {uIU/mL} Normal 0.450-4.50 0 [facility] Work Phone: Comment on above: PATIENT WAS FASTINGP ERFORMED BY: [facility] Suimqz5880 [address] [facility] [id number] URINE IBRAHIMA CULTURE (TY COL COUNT) ([id number])Ordered By: Head Esthetician on 12-01-2013 Bacteria identified Cx Nom (U) Escherichia coli Normal [facility] Work Phone: Comment on above: Greater than 100,000 colony forming units per mL PATIENT NOT FASTINGP ERFORMED BY: [facility] Wgujyi8018 [address] [facility]in [place] [id number] Information: SRC:UR [id number] Bacteria identified Cx Nom (U) Final report Normal [facility] Work Phone: Comment on above: PATIENT NOT FASTINGP ERFORMED BY: [facility] Uqdtbj[address] [facility] Hospitalblin [place] [id number] Information: SRC:UR V07741 Other Antibiotic [facility] [employer] [facility] prehensive Internal Medicine Work Phone: Comment on above: S = Susceptibl e; I = Intermediate; R = Resistant P = Positive; N = Negative MICS are expressed in micrograms per mL Antibiotic RSLT#1 RSLT#2 RSLT#3 RSLT#4Amoxicillin/Clavulanic Acid SAmpicillin SCefepime SCeftriaxone SCefuroxime SCephalothin SCiprofloxacin SErtapenem SGentamicin SImipenem SLevofloxacin SNitrofurantoin SPiperacillin STetracycline STobramycin STrimethoprim/Sulfa S PATIENT NOT FASTINGP ERFORMED BY: ORTIZ [facility] Mvtvvj6973 Rodriguez Roadformerly [facility] [id number] Information: SRC:POORNIMA [id number] Urinalysis, Office (64835)Or dered By: Jacinta Patel on 12-01-2013 Bilirubin [...] Internal Medicine Work Phone: Vitamin D Hydroxy (44876)Ord ered By: Head Esthetician on 12-01-2013 25-Hydroxyvitamin D2+25-Hydroxyvitamin D3 mass conc 38.9 ng/mL Normal 30.0-100.0 [facility] Work Phone: Comment on above: Vitamin D deficiency has been defined by the [place] ofMedicine and an Endocrine Society practice guideline as alevel of serum 25-OH vitamin D less than 20 ng/mL (1,2).The Endocrine Society went on to further define vitamin Dinsufficiency as a level between 21 and 29 ng/mL (2).1. IOM ([place] of Medicine). 2010. Dietary reference intakes for calcium and D. [place]: The National Academies Press.2. Allie MF, Emile PONCE, Natalie POOLE, et al. Evaluation, treatment, and prevention of vitamin D deficiency: an Endocrine Society clinical practice guideline. JCEM. 2010; 96(7):1911-30. PATIENT WAS FASTINGP ERFORMED BY: [place] [id number] Lab Report: PTon 04-19-2013 INR in blood by coagulation 1.0 {INR} Normal [facility] Work Phone: prothrombin time, actual/normal, ratio 12.8 SECONDS Normal 11.9-14.4 [facility] Work Phone: Lab Report: PTTon 04-19-2013 aPTT 29.8 s Normal 24.1-36.2 [facility] Work Phone: Replaced Document: Escobar Parra CG Observationson 04-19-2013 Pulse (Heart Rate) 421 ms Invalid Interpretation Code [facility] Work Phone: URINE IBRAHIMA CULTURE-TY COL C OUNT (16100)Ordered By: Head Esthetician on 04-18-2013 Bacteria identified Cx Nom (U) Final report Normal [facility] Work Phone: Comment on above: PATIENT NOT FASTINGP ERFORMED BY: [place] [id number] Information: SRC:UR X47557 Bacteria identified Cx Nom (U) NG36 Normal [facility] Work Phone: Comment on above: No growth in 36 - 48 hours. PATIENT NOT FASTINGP ERFORMED BY: TaxifyDublin [place] [id number] Information: SRC:UR Z64881 Urinalysis, Office (02912)Or dered By: Jacinta Patel on 04-15-2013 Bilirubin [...] Phone: URINE IBRAHIMA CULTURE (TY COL COUNT) (18897)Ordered By: Head Esthetician on 09-30-2012 Bacteria identified Cx Nom (U) Escherichia coli Normal [facility] Work Phone: Comment on above: Greater than 100,000 colony forming units per mL PATIENT NOT FASTINGP ERFORMED BY: ORTIZ LabM876370 [facility] [id number] Information: SRC:UR K47455 Bacteria identified Cx Nom (U) Final report Normal [facility] Work Phone: Comment on above: PATIENT NOT FASTINGP ERFORMED BY: [facility] Iuvclq0654 [address] RoadFormerly [facility] Hospital [facility] Countyin [place] [id number] Information: SRC:UR A38632 Other Antibiotic [facility] prehensive Internal Medicine Work Phone: Comment on above: S = Susceptibl e; I = Intermediate; R = Resistant P = Positive; N = Negative MICS are expressed in micrograms per mL Antibiotic RSLT#1 RSLT#2 RSLT#3 RSLT#4Amoxicillin/Clavulanic Acid SAmpicillin SCefazolin SCefepime SCeftriaxone SCefuroxime SCephalothin SCiprofloxacin SESBL NErtapenem SGentamicin SImipenem SLevofloxacin SNitrofurantoin SPiperacillin STetracycline STobramycin STrimethoprim/Sulfa S PATIENT NOT FASTINGP ERFORMED BY: ORTIZ [facility] Fviecb8482 [facility] [id number] Information: SRC:UR P39723 Urinalysis, Office (38229)Or dered By: Alyson Dixon on 09-30-2012 Bilirubin [...] Albumin/Globulin Ratio 1.1 {ratio} Invalid Interpretation Code [facility] Work Phone: Protein 6.7 g/dL Invalid Interpretation Code [facility] Work Phone: Alkaline Phosphatase (04658) Ordered By: Head Esthetician on 02-25-2012 ALP enzyme act/vol 67 [iU]/L Normal 25-165 Compre hensive Internal Medicine Work Phone: Comment on above: PATIENT NOT FASTINGP ERFORMED BY: [employer] InnovationsCoLokata.ru Sagyqx6941 [address] [facility] [id number] CALCIFIDIOL (09958) VIT D 25 Ordered By: Head Esthetician on 02-25-2012 25-Hydroxyvitamin D2+25-Hydroxyvitamin D3 mass conc 45.8 ng/mL Normal 30.0-100.0 [facility] Work Phone: Comment on above: Vitamin D deficiency has been defined by the [place] ofMedicine and an Endocrine Society practice guideline as alevel of serum 25-OH vitamin D less than 20 ng/mL (1,2).The Endocrine Society went on to further define vitamin Dinsufficiency as a level between 21 and 29 ng/mL (2).1. IOM ([place] of Medicine). 2010. Dietary reference intakes for calcium and D. [place]: The National Academies Press.2. Allie MF, Emile [place], Natalie POOLE, et al. Evaluation, treatment, and prevention of vitamin D deficiency: an Endocrine Society clinical practice guideline. JCEM. 2010; 96(7):1911-30. PATIENT NOT FASTINGP ERFORMED BY: No Paper Just Vapor [facility] Xptbrp2026 [address] [facility]ly [facility] HospitalDuCarolin[facility] ContinueC[facility] [id number] Information: [id number] Calcium Serum (56676)Ordered By: Head Esthetician on 02-25-2012 Calcium mass conc 9.3 mg/dL Normal 8.6-10.[address] [facility] Internal Medicine Work Phone: Comment on above: PATIENT NOT FASTINGP ERFORMED BY: ORTIZ MeenaAleksandr CroweOgjbgp6027 [facility] [id number] Clinical Lists Update: Adalgisa smith 02-16-2012 MCHC 34.6 % Invalid Interpretation Code [facility] Work Phone: CBC (AUTO) (29668)Ordered By : Head Esthetician on 10-14-2010 Erythrocyte distribution width Ratio (RBC) 13.5 % Normal 11.7-15.0 [facility] Work Phone: Comment on above: PATIENT NOT FASTINGP ERFORMED BY: ORTIZ Chester6370 [address] [facility] [id number] Hematocrit Volume Fraction (Bld) 40.4 % Normal 34.0-44.0 [facility] Work Phone: Comment on above: PATIENT NOT FASTINGP ERFORMED BY: ORTIZ Chester6370 [address] [facility] [id number] Hemoglobin mass conc (Bld) 13.7 g/dL Normal 11.5-15.0 [facility] Work Phone: Comment on above: PATIENT NOT FASTINGP ERFORMED BY: ORTIZ Crowelin6370 [address] [facility] [id number] MCH Entitic mass (RBC) 29.5 pg Normal 27.0-34.0 [facility] Work Phone: Comment on above: PATIENT NOT FASTINGP ERFORMED BY: ORTIZ LabAleksandr CroweUvjymt2718 [address] [facility] [id number] MCHC mass conc (RBC) 33.9 g/dL Normal 32.0-36.0 [facility] Work Phone: Comment on above: PATIENT NOT FASTINGP ERFORMED BY: ORTIZ LabAleksandr CroweQgmmhe4139 [address] [facility] [id number] MCV Entitic volume (RBC) 87 fL Normal 80-98 [facility] Work Phone: Comment on above: PATIENT NOT FASTINGP ERFORMED BY: ORTIZ LabCoaustyn CroweGoergs8286 [address] [facility]in [place] [id number] Platelets #/vol (Bld) 280 {x10E3/uL} Normal 140-415 [facility] Work Phone: Comment on above: PATIENT NOT FASTINGP ERFORMED BY: ORTIZ LabCoaustyn ChesterYkehnb5084 [address] [facility] [id number] RBC #/vol (Bld) 4.64 {x10E6/uL} Normal 3.80-5.10 Comp [facility] centerensive [facility] Medicine Work Phone: Comment on above: PATIENT NOT FASTINGP ERFORMED BY: ORTIZ [facility] Yqmbiu4954 [address] [facility] [id number] WBC #/vol (Bld) 6.2 {x10E3/uL} Normal 4.0-10.[address] Internal Medicine Work Phone: Comment on above: PATIENT NOT FASTINGP ERFORMED BY: ORTIZ [facility] Ucfhxv6155 [facility] [id number] METABOLIC PANEL, COMPREHENSI VE (33400)Ordered By: Head Esthetician on 10-14-2010 Albumin mass conc 4.4 g/dL Normal 3.5-4.[address] [facility] Internal Medicine Work Phone: Comment on above: PATIENT NOT FASTINGP ERFORMED BY: ORTIZ RobledoCo Fopivi3129 [facility] [id number] Information: [id number] Albumin/Globulin mass ratio 1.8 {ratio} Normal 1.1-2.5 [facility] Work Phone: Comment on above: PATIENT NOT FASTINGP ERFORMED BY: CB [facility] Wciznp3994 [address] [facility] [id number] Information: [id number] ALP enzyme act/vol 84 [iU]/L Normal 25-165 Compre [facility] Internal Medicine Work Phone: Comment on above: PATIENT NOT FASTINGP ERFORMED BY: CB [facility] Nrrepn0638 [address] [facility] [id number] Information: 149771,[id number] ALT enzyme act/vol 13 [iU]/L Normal 0-40 Compre [facility] Internal Medicine Work Phone: Comment on above: PATIENT NOT FASTINGP ERFORMED BY: ORTIZ [facility] Nxrepw1150 [address] [facility] [place] [id number] Information: [id number],[id number] AST enzyme act/vol 13 [iU]/L Normal 0-40 Compre [facility] Internal Medicine Work Phone: Comment on above: PATIENT NOT FASTINGP ERFORMED BY: CB [facility] Xshlxu4580 [address] [facility] [id number] Information: 134973,[id number] Bilirubin mass conc 0.2 mg/dL Normal 0.0-1.2 Compr ensive Internal Medicine Work Phone: Comment on above: PATIENT NOT FASTINGP ERFORMED BY: LabCoPenn Medicine [facility] Medical CenterIybrua3181 [facility] [id number] Information: 461741,Q86222 Calcium mass conc 10.4 mg/dL Abnormal 8.6-10.2 Compreh ensive Internal Medicine Work Phone: Comment on above: PATIENT NOT FASTINGP ERFORMED BY: ORTIZ [facility] Fcyzhi7611 [facility] [id number] Information: 342025,M06730 Chloride molar conc 101 mmol/L Normal 97-108 Compr ensive Internal Medicine Work Phone: Comment on above: PATIENT NOT FASTINGP ERFORMED BY: CB [facility] Civbci7180 [address] [facility] [id number] Information: [id number] CO2 molar conc 28 mmol/L Normal 20-32 Comprehens trupti Internal Medicine Work Phone: Comment on above: PATIENT NOT FASTINGP ERFORMED BY: ORTIZ [facility] Morswm2159 [address] [facility] [id number] Information: [id number],G08925 Creatinine mass conc 0.70 mg/dL Normal 0.57-1.00 Comp rehensive Internal Medicine Work Phone: Comment on above: PATIENT NOT FASTINGP ERFORMED BY: ORTIZ [facility] Ewvctl9760 [facility] [id number] Information: 943965,O27384 GFR/1.73 sq M predicted among blacks MDRD [...] PATIENT NOT FASTINGP ERFORMED BY: ORTIZ [facility] Zeilnz8342 [facility] [id number] Information: 797655,C34594 GFR/1.73 sq M.predicted MDRD (S/P/Bld) [Vol rate/Area] mL/min/{1.73_m2} Normal [facility] Work Phone: Comment on above: PATIENT NOT FASTINGP ERFORMED BY: [facility] Socdou2431 [facility] [id number] Information: 217789,S78428 GFR/1.73 sq M.predicted MDRD vol rate/area mL/min/{1.73_m2} Normal [facility] Work Phone: Comment on above: PATIENT NOT FASTINGP ERFORMED BY: CB [facility] Nsgprv1924 [facility] [id number] Information: 805289,A89751 Globulin mass conc (S) 2.5 g/dL Normal 1.5-4.5 [facility] Work Phone: Comment on above: PATIENT NOT FASTINGP ERFORMED BY: CB [facility] Mukwxj6159 [facility] [id number] Information: 348295,Q17250 Glucose mass conc 88 mg/dL Normal 65-99 Compreh ensive Internal Medicine Work Phone: Comment on above: PATIENT NOT FASTINGP ERFORMED BY: ORTIZ Chester6370 [facility] [id number] Information: [id number],D60961 Potassium molar conc 4.6 mmol/L Normal 3.5-5.2 Comp rehensive Internal Medicine Work Phone: Comment on above: PATIENT NOT FASTINGP ERFORMED BY: ORTIZ Hou Cgxnnx4605 [facility] [id number] Information: [id number],Z02109 Protein mass conc 6.9 g/dL Normal 6.0-8.5 Compreh ensive Internal Medicine Work Phone: Comment on above: PATIENT NOT FASTINGP ERFORMED BY: ORTIZ Hou Rucqnf9172 [facility] [id number] Information: 096604,F52961 Sodium molar conc 140 mmol/L Normal 135-145 Compreh ensive Internal Medicine Work Phone: Comment on above: PATIENT NOT FASTINGP ERFORMED BY: ORTIZ Hou Xnvwpo3383 [facility] [id number] Information: 487691,M74460 Urea nitrogen mass conc 9 mg/dL Normal 8-27 [facility] Work Phone: Comment on above: PATIENT NOT FASTINGP ERFORMED BY: ORTIZ [facility] Mcvgrb8512 [facility] [id number] Information: [id number] Urea nitrogen/Creatinine mass ratio 13 mg/mg Normal 11-26 [facility] Work Phone: Comment on above: PATIENT NOT FASTINGP ERFORMED BY: ORTIZ Hou Rryufb9324 [facility] [id number] Information: [id number] TSH ([id number])Ordered By: Samantha Montelongo on 10-14-2010 Thyrotropin Qn 1.320 {uIU/mL} Normal 0.450-4.50 0 [facility] Work Phone: Comment on above: PATIENT NOT FASTINGP ERFORMED BY: ORTIZ [facility] Yltcfa2517 [address] RoadDublin [place] [id number] URINALYSIS W/O MICRO ([id number]) Ordered By: Head Esthetician on 10-14-2010 Appearance Nom (U) Clear Normal Compre hensive Internal Medicine Work Phone: Comment on above: PATIENT NOT FASTINGP ERFORMED BY: ORTIZ [facility] Rokmgr5473 [address] RoadDublin [place] [id number] Bilirubin Ql (U) Negative Normal Comprehe nsive Internal Medicine Work Phone: Comment on above: PATIENT NOT FASTINGP ERFORMED BY: ORTIZ LabCoaustyn CroweDavndx0675 [address] RoadDublin [place] [id number] Color Nom (U) Yellow Normal Comprehensi ve Internal Medicine Work Phone: Comment on above: PATIENT NOT FASTINGP ERFORMED BY: ORTIZ [facility] Icedwu6092 [address] RoadDublin [place] [id number] Glucose Ql (U) Negative Normal Comprehens trupti Internal Medicine Work Phone: Comment on above: PATIENT NOT FASTINGP ERFORMED BY: ORTIZ LabAleksandr CroweMxvtac0405 [address] RoadDublin [place] [id number] Hemoglobin Ql (U) Negative Normal Compreh ensive Internal Medicine Work Phone: Comment on above: PATIENT NOT FASTINGP ERFORMED BY: ORTIZ LabKellierp Yiejsr0635 [address] RoadDublin [place] [id number] Ketones Ql (U) Negative Normal Comprehens trupti Internal Medicine Work Phone: Comment on above: PATIENT NOT FASTINGP ERFORMED BY: ORTIZ [facility] Zgxklo9465 [address] RoadDublin [place] [id number] Leukocyte esterase Test strip Ql (U) Negative Normal [facility] Work Phone: Comment on above: PATIENT NOT FASTINGP ERFORMED BY: ORTIZ [facility] Esyuvx1520 [address] RoadDublin [place] [id number] Microscopic observation LM Nom (Urine sed) MICRON Normal [facility] Work Phone: Comment on above: Microscopic follows if indicated. PATIENT NOT FASTINGP ERFORMED BY: ORTIZ [facility] Qidfmi4809 [address] RoadDublin [place] [id number] Nitrite Ql (U) Negative Normal Comprehens trupti Internal Medicine Work Phone: Comment on above: PATIENT NOT FASTINGP ERFORMED BY: ORTIZ [facility] Emuiez0697 [address] RoadDublin [place] [id number] pH (U) 6.5 [pH] Normal 5.0-7.5 [facility] Work Phone: Comment on above: PATIENT NOT FASTINGP ERFORMED BY: CB [facility] Jddaim0270 [address] RoadDublin [place] [id number] Protein Ql (U) Negative Normal Comprehens trupti Internal Medicine Work Phone: Comment on above: PATIENT NOT FASTINGP ERFORMED BY: ORTIZ [facility] Ajnmrw3506 [address] RoadDublin [place] [id number] Specific gravity Relative Density (U) 1.020 1 Normal 1.005-1.03 0 [facility] Work Phone: Comment on above: PATIENT NOT FASTINGP ERFORMED BY: ORTIZ [facility] Uhvell0463 [address] RoadDublin [place] [id number] Urobilinogen Test strip mass conc (U) 0.2 mg/dL Normal 0.0-1.9 Comprehensiv e Internal Medicine Work Phone: Comment on above: PATIENT NOT FASTINGP ERFORMED BY: CB [facility] Ucljcz5221 [address] RoadDublin [place] [id number] VITAMIN B-12 (CYANOCOBALAMIN ) ([id number])Ordered By: Head Esthetician on 10-14-2010 Cobalamin (Vitamin B12) mass conc 246 pg/mL Normal 211-946 [facility] Work Phone: Comment on above: PATIENT NOT FASTINGP ERFORMED BY: ORTIZ [facility] Pxayad2454 [address] RoadDublin [place] [id number] LIPID PANEL ([id number])Ordered B y: Head Esthetician on 12-14-2009 Cholesterol in HDL mass conc 54 mg/dL Normal [facility] Work Phone: Comment on above: According to ATP-III Guidelines, HDL-C >59 mg/dL is considered anegative risk factor for CHD. PATIENT WAS FASTINGP ERFORMED BY: ORTIZ [facility] Ddmgsy6701 [facility] [id number] Information: [id number] Cholesterol in LDL mass conc 111 mg/dL Abnormal 0-99 [facility] Work Phone: Comment on above: PATIENT WAS FASTINGP ERFORMED BY: [address] [id number] Information: [id number] Cholesterol in LDL/Cholesterol in HDL mass ratio 2.1 {ratio_units} Normal 0.0-3.2 [facility] Work Phone: Comment on above: PATIENT WAS FASTINGP ERFORMED BY: [address] [id number] Information: [id number] Cholesterol in VLDL mass conc 21 mg/dL Normal 5-40 [facility] Work Phone: Comment on above: PATIENT WAS FASTINGP ERFORMED BY: [place] 2627470 [facility] [id number] Information: [id number] Cholesterol mass conc 186 mg/dL Normal 100-199 Com prehensive Internal Medicine Work Phone: Comment on above: PATIENT WAS FASTINGP ERFORMED BY: [address] [id number] Information: [id number] Triglyceride mass conc 103 mg/dL Normal 0-149 Co fitzgibbon hospitalensive Internal Medicine Work Phone: Comment on above: PATIENT WAS FASTINGP ERFORMED BY: [place] [id number] [facility] [id number] Information: [id number] TSH ([id number])Ordered By: Samantha Montelongo on 12-14-2009 Thyrotropin Qn 1.680 {uIU/mL} Normal 0.450-4.50 0 [facility] Work Phone: Comment on above: PATIENT WAS FASTINGP ERFORMED BY: ORTIZ Hou Ojtwtj1885 [facility] [id number] CBC WITH MANUAL DIFF ([id number]) Ordered By: Head Esthetician on 12-13-2009 Basophils #/vol (Bld) 0.0 {x10E3/uL} Normal 0.0-0.2 [facility] Work Phone: Comment on above: PATIENT NOT FASTINGP ERFORMED BY: ORTIZ RobledoKimberly [place] 2627470 [facility] [id number] Information: [id number] Basophils/100 WBC (Bld) 0 % Normal 0-3 [facility] Work Phone: Comment on above: PATIENT NOT FASTINGP ERFORMED BY: ORTIZ [place] [id number] [facility] [id number] Information: [id number] Eosinophils #/vol (Bld) 0.0 {x10E3/uL} Normal 0.0-0.4 [facility] Work Phone: Comment on above: PATIENT NOT FASTINGP ERFORMED BY: ORTIZ Hou Vupsxv9774 [facility] [id number] Information: [id number] Eosinophils/100 WBC (Bld) 0 % Normal 0-7 [facility] Work Phone: Comment on above: PATIENT NOT FASTINGP ERFORMED BY: ORTIZ RobledoKim[place] 2627470 [facility] [id number] Information: [id number] Erythrocyte distribution width Ratio (RBC) 13.9 % Normal 11.7-15.0 [facility] Work Phone: Comment on above: PATIENT NOT FASTINGP ERFORMED BY: ORTIZ [place] [id number] [facility] [id number] Information: [id number],[id number] Hematocrit Volume Fraction (Bld) 38.9 % Normal 34.0-44.0 [facility] Work Phone: Comment on above: PATIENT NOT FASTINGP ERFORMED BY: ORTIZ Hou Vtskhb6602 [facility] [id number] Information: [id number] Hemoglobin mass conc (Bld) 13.7 g/dL Normal 11.5-15.0 [facility] Work Phone: Comment on above: PATIENT NOT FASTINGP ERFORMED BY: ORTIZ LabCo[address] [id number] Information: [id number] Lymphocytes #/vol (Bld) 1.3 {x10E3/uL} Normal 0.7-4.5 [facility] Work Phone: Comment on above: PATIENT NOT FASTINGP ERFORMED BY: ROTIZ Hou Bbfpma4522 [facility] [id number] Information: [id number] Lymphocytes/100 WBC (Bld) 20 % Normal 14-46 [facility] Work Phone: Comment on above: PATIENT NOT FASTINGP ERFORMED BY: ORTIZ HouJulian [place] 1010670 [facility] [id number] Information: [id number],[id number] MCH Entitic mass (RBC) 31.3 pg Normal 27.0-34.0 [facility] Internal [facility] Work Phone: Comment on above: PATIENT NOT FASTINGP ERFORMED BY: ORTIZ RobledoKimberly [place] 2627470 [facility] [id number] Information: [id number] MCHC mass conc (RBC) 35.2 g/dL Normal 32.0-36.0 [facility] Internal Medicine Work Phone: Comment on above: PATIENT NOT FASTINGP ERFORMED BY: ORTIZ LabKellie Jdvzbq7336 [facility] [id number] Information: 133985,[id number] MCV Entitic volume (RBC) 89 fL Normal 80-98 [facility] Work Phone: Comment on above: PATIENT NOT FASTINGP ERFORMED BY: ORTIZ MeenaCo Ycuzub9604 [facility] [id number] Information: 155659,[id number] Monocytes #/vol (Bld) 0.4 {x10E3/uL} Normal 0.1-1.0 [facility] Work Phone: Comment on above: PATIENT NOT FASTINGP ERFORMED BY: ORTIZ [facility] Umsriy6927 [facility] [id number] Information: [id number] Monocytes/100 WBC (Bld) 6 % Normal 4-13 [facility] Work Phone: Comment on above: PATIENT NOT FASTINGP ERFORMED BY: ORTIZ MeenaCo Fvtgco8581 [facility] [id number] Information: 767575,[id number] Neutrophils #/vol (Bld) 5.0 {x10E3/uL} Normal 1.8-7.8 [facility] Work Phone: Comment on above: PATIENT NOT FASTINGP ERFORMED BY: ORTIZ MeenaCo Nzfluu8229 [facility] [id number] Information: [id number] Neutrophils/100 WBC (Bld) 74 % Normal 40-74 [facility] Work Phone: Comment on above: PATIENT NOT FASTINGP ERFORMED BY: ORTIZ MeenaCo Vknjvd6743 [facility] [id number] Information: [id number] Platelets #/vol (Bld) 228 {x10E3/uL} Normal 140-415 [facility] Work Phone: Comment on above: PATIENT NOT FASTINGP ERFORMED BY: ORTIZ [facility] Daudoo1360 [facility] [id number] Information: [id number] RBC #/vol (Bld) 4.38 {x10E6/uL} Normal 3.80-5.10 [facility] Work Phone: Comment on above: PATIENT NOT FASTINGP ERFORMED BY: ORTIZ Ameyarp Wphsiw6263 [address] RoadDublin [place] [id number] Information: [id number] WBC #/vol (Bld) 6.7 {x10E3/uL} Normal 4.0-10.5 [facility] Internal Medicine Work Phone: Comment on above: PATIENT NOT FASTINGP ERFORMED BY: CB [facility] Hlcpbm2844 Rodriguez Roadblin [place] [id number] Information: [id number] METABOLIC PANEL, COMPREHENSI VE (40218)Ordered By: Head Esthetician on 12-13-2009 Albumin mass conc 4.1 g/dL Normal 3.5-4.[address] [facility] Internal Medicine Work Phone: Comment on above: PATIENT NOT FASTINGP ERFORMED BY: CB [facility] Hvenhr9447 [address] RoadFormerly [facility]in [place] [id number] Albumin/Globulin mass ratio 1.7 {ratio} Normal 1.1-2.5 [facility] Internal Medicine Work Phone: Comment on above: PATIENT NOT FASTINGP ERFORMED BY: CB [facility] Lhiwnp9981 [address] RoadDublin [place] [id number] ALP enzyme act/vol 82 [iU]/L Normal 25-165 [facility] Internal Medicine Work Phone: Comment on above: PATIENT NOT FASTINGP ERFORMED BY: CB [facility] Kozchh2390 [address] RoadDublin [place] [id number] ALT enzyme act/vol 12 [iU]/L Normal 0-40 [facility] Internal Medicine Work Phone: Comment on above: PATIENT NOT FASTINGP ERFORMED BY: CB [facility] Hywweo7826 [address] RoadDublin [place] [id number] AST enzyme act/vol 19 [iU]/L Normal 0-40 [facility] Internal Medicine Work Phone: Comment on above: PATIENT NOT FASTINGP ERFORMED BY: CB [facility] Dbqhgx3122 [address] RoadDublin [place] [id number] Bilirubin mass conc 0.2 mg/dL Normal 0.1-1.2 Compr ehensive Internal Medicine Work Phone: Comment on above: PATIENT NOT FASTINGP ERFORMED BY: ORTIZ LabCoaustyn Umqwug[address] [facility] [place] [id number] Calcium mass conc 9.6 mg/dL Normal 8.6-10.2 Compreh ensive Internal Medicine Work Phone: Comment on above: PATIENT NOT FASTINGP ERFORMED BY: CB [facility] Vepswn8889 [address] [facility] [id number] Chloride molar conc 104 mmol/L Normal 97-108 Compr ehensive Internal Medicine Work Phone: Comment on above: PATIENT NOT FASTINGP ERFORMED BY: ORTIZ [facility] Ljynqv6598 [address] [facility] [id number] CO2 molar conc 25 mmol/L Normal 20-32 Comprehens trupti Internal Medicine Work Phone: Comment on above: PATIENT NOT FASTINGP ERFORMED BY: ORTIZ [facility] Bktglk4320 [address] [facility] [id number] Creatinine mass conc 0.71 mg/dL Normal 0.57-1.00 Comp [facility] Work Phone: Comment on above: PATIENT NOT FASTINGP ERFORMED BY: ORTIZ [facility] Grutsl0716 [address] [facility] [id number] GFR/1.73 sq M predicted among blacks MDRD vol rate/area (S/P/Bld) mL/min/{1.73_m2} Normal [facility] Work Phone: Comment on above: Note: Persistent red uction for 3 months or more in an eGFR<60 mL/min/1.73 m2 defines CKD. Patients with eGFR values>/=60 mL/min/1.73 m2 may also have CKD if evidence of persistentproteinuria is present. Additional information may be found [email or web address]. PATIENT NOT FASTINGP ERFORMED BY: CB [facility] Nactpx8023 [address] RoadFormerly [facility]in [place] [id number] GFR/1.73 sq M.predicted MDRD (S/P/Bld) [Vol rate/Area] mL/min/{1.73_m2} Normal [facility] Work Phone: Comment on above: PATIENT NOT FASTINGP ERFORMED BY: ORTIZ [facility] Mmkklj2925 [address] Roadblin [place] [id number] GFR/1.73 sq M.predicted MDRD vol rate/area mL/min/{1.73_m2} Normal [facility] Work Phone: Comment on above: PATIENT NOT FASTINGP ERFORMED BY: ORTIZ [facility] Cyqnsx1834 [address] RoadFormerly [facility]in [place] [id number] Globulin mass conc (S) 2.4 g/dL Normal 1.5-4.5 Co mprehensive Internal Medicine Work Phone: Comment on above: PATIENT NOT FASTINGP ERFORMED BY: ORTIZ [facility] Netcsa4508 [address] RoadFormerly [facility]in [place] [id number] Glucose mass conc 89 mg/dL Normal 65-99 Compreh ensive Internal Medicine Work Phone: Comment on above: PATIENT NOT FASTINGP ERFORMED BY: ORTIZ [facility] Gklvlw4114 [address] [facility]in [place] [id number] Potassium molar conc 5.0 mmol/L Normal 3.5-5.2 Comp rehensive Internal Medicine Work Phone: Comment on above: PATIENT NOT FASTINGP ERFORMED BY: ORTIZ [facility] Thdtwx0445 [address] [facility]in [place] [id number] Protein mass conc 6.5 g/dL Normal 6.0-8.5 Compreh ensive Internal Medicine Work Phone: Comment on above: PATIENT NOT FASTINGP ERFORMED BY: ORTIZ [facility] Yluoop4758 [address] [facility] [place] [id number] Sodium molar conc 142 mmol/L Normal 135-145 Compreh ensive Internal Medicine Work Phone: Comment on above: PATIENT NOT FASTINGP ERFORMED BY: ORTIZ [facility] Neugob8019 [address] RoadDublin [place] [id number] Urea nitrogen mass conc 10 mg/dL Normal 5-26 [facility] Work Phone: Comment on above: PATIENT NOT FASTINGP ERFORMED BY: [facility] Zfsjbq9916 [facility] [id number] Urea nitrogen/Creatinine mass ratio 14 mg/mg Normal 8-27 [facility] Work Phone: Comment on above: PATIENT NOT FASTINGP ERFORMED BY: [facility] Cpopqg8430 [facility] [id number] Urinalysis, Office ([id number])Or dered By: Radha Velez on 09-21-2008 Bilirubin [...] Bacteria identified Cx Nom (U) Escherichia coli [facility] Work Phone: Vital Signs Date Time Vital Sign Value Performing Clinician Facility 03-02-2025 18:29-0400 Body height 157.[address] Yesika Faust MD Work Phone: [facility] 05-05-2019 10:14-0400 BMI (Body Mass Index) 33.02 kg/m2 Mirella Solano trupti Internal Medicine Work Phone: 05-05-2019 10:14-0400 Body weight 74.16 kg Mirella Mccracken [facility] Work Phone: 05-05-2019 10:14-0400 BP Diastolic 80 mm[Hg] Mirella Mccracken [facility] Work Phone: Comment on above: Patient Position: Sitting; Cuff Location : Left Arm; Cuff Size: Large 05-05-2019 10:14-0400 BP Systolic 138 mm[Hg] Mirella Mccracken [facility] Work Phone: Comment on above: Patient Position: Sitting; Cuff Location : Left Arm; Cuff Size: Large 05-05-2019 10:14-0400 BSA (Body Surface Area) 1.69 m2 Mirella Mccracken [facility] Work Phone: 05-05-2019 10:14-0400 Height 149.86 cm Mirella Mccracken [facility] Work Phone: 05-05-2019 10:14-0400 Pulse (Heart Rate) 68 /min Mirella Mccracken [facility] Work Phone: Comment on above: Pattern: Regular 05-05-2019 10:14-0400 Pulse Oximetry 95 % Mirella Mccracken [facility] Work Phone: Comment on above: Room air 05-05-2019 10:14-0400 Respiratory Rate 18 /min Mirella Mccracken [facility] Work Phone: Comment on above: Pattern: Unlabored 03-15-2019 09:59-0400 BMI (Body Mass Index) 33.4 kg/m2 Mirella Solano tr[facility]i [facility] Work Phone: 03-15-2019 09:59-0400 Body weight 75.01 kg Mirella Mccracken [facility] Work Phone: 03-15-2019 09:59-0400 BP Diastolic 82 mm[Hg] Mirella Mccracken [facility] Internal Medicine Work Phone: Comment on above: Patient Position: Sitting; Cuff Location : Left Arm; Cuff Size: Large 03-15-2019 09:59-0400 BP Systolic 168 mm[Hg] Mirella Mccracken [facility] Internal Medicine Work Phone: Comment on above: Patient Position: Sitting; Cuff Location : Left Arm; Cuff Size: Large 03-15-2019 09:59-0400 BSA (Body Surface Area) 1.7 m2 Mirella Mccracken [facility] Internal Medicine Work Phone: 03-15-2019 09:59-0400 Height 149.86 cm Mirella Mccracken [facility] Medicine Work Phone: 03-15-2019 09:59-0400 Pulse (Heart Rate) 88 /min Mirella Mccracken [facility] Internal Medicine Work Phone: Comment on above: Pattern: Regular 03-15-2019 09:59-0400 Pulse Oximetry 98 % Mirella Mccracken [facility] Internal Medicine Work Phone: Comment on above: Room air 03-15-2019 09:59-0400 Respiratory Rate 18 /min Mirella Mccracken [facility] Internal Medicine Work Phone: Comment on above: Pattern: Unlabored 01-21-2018 08:25-0400 BMI (Body Mass Index) 29.34 kg/m2 Mirella Mccracken [facility] Internal Medicine Work Phone: 01-21-2018 08:25-0400 Body weight 65.89 kg Mirella Mccracken [facility] Medicine Work Phone: 01-21-2018 08:25-0400 BP Diastolic 84 mm[Hg] Mirella Mccracken [facility] Medicine Work Phone: Comment on above: Patient Position: Sitting; Cuff Location : Left Arm; Cuff Size: Large 01-21-2018 08:25-0400 BP Systolic 128 mm[Hg] Mirella Mccracken [facility] Internal Medicine Work Phone: Comment on above: Patient Position: Sitting; Cuff Location : Left Arm; Cuff Size: Large 01-21-2018 08:25-0400 BSA (Body Surface Area) 1.61 m2 Mirella Mccracken [facility] Internal Medicine Work Phone: 01-21-2018 08:25-0400 Height 149.86 cm Mirella Mccracken [facility] Medicine Work Phone: 01-21-2018 08:25-0400 Pulse (Heart Rate) 84 /min Mirella Mccracken [facility] Internal Medicine Work Phone: Comment on above: Pattern: Regular 01-21-2018 08:25-0400 Pulse Oximetry 98 % Mirella Mccracken [facility] Internal Medicine Work Phone: Comment on above: Room air 01-21-2018 08:25-0400 Respiratory Rate 18 /min Mirella Mccracken [facility] Internal Medicine Work Phone: Comment on above: Pattern: Unlabored 01-21-2018 08:25-0400 Weight 65.89 kg Mirella Mccracken [facility] Internal Medicine Work Phone: 11-09-2017 14:35-0500 BMI (Body Mass Index) 28.91 kg/m2 Mirella Mccracken [facility] Internal Medicine Work Phone: 11-09-2017 14:35-0500 Body weight 64.92 kg Mirella Mccracken [facility] Internal Medicine Work Phone: 11-09-2017 14:35-0500 BP Diastolic 90 mm[Hg] Mirella Mccracken [facility] Internal Medicine Work Phone: Comment on above: Patient Position: Sitting; Cuff Location : Left Arm; Cuff Size: Large 11-09-2017 14:35-0500 BP Systolic 148 mm[Hg] Mirella Mccracken [facility] Internal Medicine Work Phone: Comment on above: Patient Position: Sitting; Cuff Location : Left Arm; Cuff Size: Large 11-09-2017 14:35-0500 BSA (Body Surface Area) 1.6 m2 Mirella Mccracken [facility] Internal Medicine Work Phone: 11-09-2017 14:35-0500 Height 149.86 cm Mirella Mccracken [facility] Medicine Work Phone: 11-09-2017 14:35-0500 Pulse (Heart Rate) 67 /min Mirella Mccracken [facility] Internal Medicine Work Phone: Comment on above: Pattern: Regular 11-09-2017 14:35-0500 Pulse Oximetry 98 % Mirella Mccracken [facility] Internal Medicine Work Phone: Comment on above: Room air 11-09-2017 14:35-0500 Respiratory Rate 18 /min Mirella Mccracken [facility] Internal Medicine Work Phone: Comment on above: Pattern: Unlabored 11-09-2017 14:35-0500 Weight 64.92 kg Mirella Mccracken [facility] Internal Medicine Work Phone: 10-15-2017 09:58-0500 BMI (Body Mass Index) 28.91 kg/m2 Mirella Mccracken [facility] Internal Medicine Work Phone: 10-15-2017 09:58-0500 Body weight 64.92 kg Mirella Mccracken [facility] Internal Medicine Work Phone: 10-15-2017 09:58-0500 BP Diastolic 78 mm[Hg] Mirella Mccracken [facility] Internal Medicine Work Phone: Comment on above: Patient Position: Sitting; Cuff Location : Left Arm; Cuff Size: Large 10-15-2017 09:58-0500 BP Systolic 146 mm[Hg] Mirella Mccracken [facility] Internal Medicine Work Phone: Comment on above: Patient Position: Sitting; Cuff Location : Left Arm; Cuff Size: Large 10-15-2017 09:58-0500 BSA (Body Surface Area) 1.6 m2 Mirella Mccracken [facility] Internal Medicine Work Phone: 10-15-2017 09:58-0500 Height 149.86 cm Mirella Mccracken [facility] Medicine Work Phone: 10-15-2017 09:58-0500 Pulse (Heart Rate) 74 /min Mirella Mccracken [facility] Internal Medicine Work Phone: Comment on above: Pattern: Regular 10-15-2017 09:58-0500 Pulse Oximetry 99 % Mirella Mccracken [facility] Internal Medicine Work Phone: Comment on above: Room air 10-15-2017 09:58-0500 Respiratory Rate 18 /min Mirella Mccracken [facility] Internal Medicine Work Phone: Comment on above: Pattern: Unlabored 10-15-2017 09:58-0500 Weight 64.92 kg Mirella Mccracken [facility] Internal Medicine Work Phone: 09-18-2017 09:08-0500 BMI (Body Mass Index) 28.91 kg/m2 Mirella Mccracken [facility] Internal Medicine Work Phone: 09-18-2017 09:08-0500 Body weight 64.92 kg Mirella Mccracken [facility] Internal Medicine Work Phone: 09-18-2017 09:08-0500 BP Diastolic 82 mm[Hg] Mirella Mccracken [facility] Internal Medicine Work Phone: Comment on above: Patient Position: Sitting; Cuff Location : Left Arm; Cuff Size: Large 09-18-2017 09:08-0500 BP Systolic 128 mm[Hg] Mirella Mccracken [facility] Internal Medicine Work Phone: Comment on above: Patient Position: Sitting; Cuff Location : Left Arm; Cuff Size: Large 09-18-2017 09:08-0500 BSA (Body Surface Area) 1.6 m2 Mirella Mccracken [facility] Internal Medicine Work Phone: 09-18-2017 09:08-0500 Height 149.86 cm Mirella [facility]racken [facility] [facility] Work Phone: 09-18-2017 09:08-0500 Pulse (Heart Rate) 72 /min Mirella Mccracken [facility] Medicine Work Phone: Comment on above: Pattern: Regular 09-18-2017 09:08-0500 Pulse Oximetry 98 % Mirella Mccracken [facility] Medicine Work Phone: Comment on above: Room air 09-18-2017 09:08-0500 Respiratory Rate 18 /min Mirella Mccracken [facility] Internal Medicine Work Phone: Comment on above: Pattern: Unlabored 09-18-2017 09:08-0500 Weight 64.92 kg Mirella Mccracken [facility] Internal Medicine Work Phone: 06-05-2017 [...] 11:04-0400 Body weight 65.77 kg Mirella Mccracken [facility] Work Phone: 05-07-2017 11:04-0400 BP Diastolic 82 mm[Hg] Mirella Mccracken [facility] Internal Medicine Work Phone: Comment on above: Patient Position: Sitting; Cuff Location : Left Arm; Cuff Size: Standard 05-07-2017 11:04-0400 BP Systolic 128 mm[Hg] Mirella Mccracken [facility] Medicine Work Phone: Comment on above: Patient Position: Sitting; Cuff Location : Left Arm; Cuff Size: Standard 05-07-2017 11:04-0400 BSA (Body Surface Area) 1.61 m2 Mirella Mccracken [facility] Internal Medicine Work Phone: 05-07-2017 11:04-0400 Height 149.86 cm Mirella Mccracken [facility] Work Phone: 05-07-2017 11:04-0400 Pulse (Heart Rate) 65 /min Mirella Mccracken [facility] Internal Medicine Work Phone: Comment on above: Pattern: Regular 05-07-2017 11:04-0400 Pulse Oximetry 98 % Mirella Mccracken [facility] Internal Medicine Work Phone: Comment on above: Room air 05-07-2017 11:04-0400 Respiratory Rate 18 /min Mirella Mccracken [facility] Internal Medicine Work Phone: Comment on above: Pattern: Unlabored 05-07-2017 11:04-0400 Weight 65.77 kg Mirella Mccracken [facility] Medicine Work Phone: 03-26-2017 08:06-0400 BMI (Body Mass Index) 29.29 kg/m2 Mirella Mccracken [facility] Internal Medicine Work Phone: 03-26-2017 08:06-0400 Body Temperature 97.5 [degF] Mirella Mccracken [facility] Internal Medicine Work Phone: Comment on above: Method: Temporal 03-26-2017 08:06-0400 Body weight 65.77 kg Mirella Mccracken [facility] Medicine Work Phone: 03-26-2017 08:06-0400 BP Diastolic 84 mm[Hg] Mirella Mccracken [facility] Internal Medicine Work Phone: Comment on above: Patient Position: Sitting; Cuff Location : Left Arm; Cuff Size: Large 03-26-2017 08:06-0400 BP Systolic 126 mm[Hg] Mirella Mccracken [facility] Medicine Work Phone: Comment on above: Patient Position: Sitting; Cuff Location : Left Arm; Cuff Size: Large 03-26-2017 08:06-0400 BSA (Body Surface Area) 1.61 m2 Mirella Mccracken [facility] Work Phone: 03-26-2017 08:06-0400 Height 149.86 cm Mirella Mccracken [facility] Work Phone: 03-26-2017 08:06-0400 Pulse (Heart Rate) 82 /min Mirella Mccracken [facility] Internal Medicine Work Phone: Comment on above: Pattern: Regular 03-26-2017 08:06-0400 Pulse Oximetry 98 % Mirella Mccracken [facility] Internal Medicine Work Phone: Comment on above: Room air 03-26-2017 08:06-0400 Respiratory Rate 16 /min Mirella Mccracken [facility] Internal Medicine Work Phone: Comment on above: Pattern: Unlabored 03-26-2017 08:06-0400 Weight 65.77 kg Mirella Mccracken [facility] Internal Medicine Work Phone: 12-25-2016 10:08-0400 BMI (Body Mass Index) 29.51 kg/m2 Mirella Mccracken [facility] Internal Medicine Work Phone: 12-25-2016 10:08-0400 Body weight 66.28 kg Mirella Mccracken [facility] Medicine Work Phone: 12-25-2016 10:08-0400 BP Diastolic 80 mm[Hg] Mirella Mccracken [facility] Internal Medicine Work Phone: Comment on above: Patient Position: Sitting; Cuff Location : Left Arm; Cuff Size: Large 12-25-2016 10:08-0400 BP Systolic 122 mm[Hg] Mirella Mccracken [facility] Internal Medicine Work Phone: Comment on above: Patient Position: Sitting; Cuff Location : Left Arm; Cuff Size: Large 12-25-2016 10:08-0400 BSA (Body Surface Area) 1.61 m2 Mirella Mccracken [facility] Internal Medicine Work Phone: 12-25-2016 10:08-0400 Height 149.86 cm Mirella Mccracken [facility] Work Phone: 12-25-2016 10:08-0400 Pulse (Heart Rate) 69 /min Mirella Mccracken [facility] Medicine Work Phone: Comment on above: Pattern: Regular 12-25-2016 10:08-0400 Pulse Oximetry 98 % Mirella Mccracken [facility] Internal Medicine Work Phone: Comment on above: Room air 12-25-2016 10:08-0400 Respiratory Rate 18 /min Mirella Mccracken [facility] Medicine Work Phone: Comment on above: Pattern: Unlabored 12-25-2016 10:08-0400 Weight 66.28 kg Mirella Mccracken [facility] Medicine Work Phone: 11-03-2016 14:09-0500 BSA (Body Surface Area) 1.59 m2 Hung Davison [facility] Work Phone: 09-25-2016 07:51-0500 BMI (Body Mass Index) 29.94 kg/m2 Mirella Mccracken [facility] Medicine Work Phone: 09-25-2016 07:51-0500 Body Temperature 97.6 [degF] Mirella Mccracken [facility] Work Phone: 09-25-2016 07:51-0500 Body weight 67.25 kg Mirella Mccracken [facility] Medicine Work Phone: 09-25-2016 07:51-0500 BP Diastolic 78 mm[Hg] Mirella Mccracken [facility] Work Phone: Comment on above: Patient Position: Sitting; Cuff Location : Left Arm; Cuff Size: Standard 09-25-2016 07:51-0500 BP Systolic 122 mm[Hg] Mirella Mccracken [facility] Work Phone: Comment on above: Patient Position: Sitting; Cuff Location : Left Arm; Cuff Size: Standard 09-25-2016 07:51-0500 BSA (Body Surface Area) 1.62 m2 Mirella Mccracken [facility] Medicine Work Phone: 09-25-2016 07:51-0500 Height 149.86 cm Mirella Mccracken [facility] Work Phone: 09-25-2016 07:51-0500 Pulse (Heart Rate) 94 /min Mirella Mccracken [facility] Work Phone: Comment on above: Pattern: Regular 09-25-2016 07:51-0500 Pulse Oximetry 96 % Mirella Mccracken [facility] Work Phone: Comment on above: Room air 09-25-2016 07:51-0500 Respiratory Rate 17 /min Mirella Mccracken [facility] Work Phone: Comment on above: Pattern: Unlabored 09-25-2016 07:51-0500 Weight 67.25 kg Mirella Mccracken [facility] Work Phone: 06-25-2016 08:52-0400 BMI (Body Mass Index) 29.54 kg/m2 Mirella Mccracken [facility] Work Phone: 06-25-2016 08:52-0400 Body weight 66.34 kg Mirella Mccracken [facility] Work Phone: 06-25-2016 08:52-0400 BP Diastolic 60 mm[Hg] Mirella Mccracken [facility] Work Phone: Comment on above: Patient Position: Sitting; Cuff Location : Left Arm; Cuff Size: Standard 06-25-2016 08:52-0400 BP Systolic 110 mm[Hg] Mirella Mccracken [facility] Work Phone: Comment on above: Patient Position: Sitting; Cuff Location : Left Arm; Cuff Size: Standard 06-25-2016 08:52-0400 BSA (Body Surface Area) 1.61 m2 Mirella Mccracken [facility] Work Phone: 06-25-2016 08:52-0400 Height 149.86 cm Mirella Mccracken [facility] Work Phone: 06-25-2016 08:52-0400 Pulse (Heart Rate) 72 /min Mirella Mccracken [facility] Work Phone: Comment on above: Pattern: Regular 06-25-2016 08:52-0400 Pulse Oximetry 100 % Mirella Mccracken [facility] Work Phone: Comment on above: Room air 06-25-2016 08:52-0400 Respiratory Rate 18 /min Mirella Mccracken [facility] Work Phone: Comment on above: Pattern: Unlabored 06-25-2016 08:52-0400 Weight 66.34 kg Mirella Mccracken [facility] Work Phone: 05-21-2016 08:08-0400 BMI (Body Mass Index) 29.39 kg/m2 Mirella Mccracken [facility] Work Phone: 05-21-2016 08:08-0400 Body Temperature 97.2 [degF] Mirella Mccracken [facility] Work Phone: 05-21-2016 08:08-0400 Body weight 66 kg Mirella Mccracken [facility] Work Phone: 05-21-2016 08:08-0400 BP Diastolic 82 mm[Hg] Mirella Mccracken [facility] Work Phone: Comment on above: Patient Position: Sitting; Cuff Location : Left Arm; Cuff Size: Standard 05-21-2016 08:08-0400 BP Systolic 124 mm[Hg] Mirella Mccracken [facility] Work Phone: Comment on above: Patient Position: Sitting; Cuff Location : Left Arm; Cuff Size: Standard 05-21-2016 08:08-0400 BSA (Body Surface Area) 1.61 m2 Mirella Mccracken [facility] Work Phone: 05-21-2016 08:08-0400 Height 149.86 cm Mirella Mccracken [facility] Work Phone: 05-21-2016 08:08-0400 Pulse (Heart Rate) 80 /min Mirella Mccracken [facility] Work Phone: Comment on above: Pattern: Regular 05-21-2016 08:08-0400 Pulse Oximetry 98 % Mirella Mccracken [facility] Work Phone: Comment on above: Room air 05-21-2016 08:08-0400 Respiratory Rate 16 /min Mirella Mccracken [facility] Work Phone: Comment on above: Pattern: Unlabored 05-21-2016 08:08-0400 Weight 66 kg Mirella Mccracken [facility] Work Phone: 01-04-2016 09:52-0400 BMI (Body Mass Index) 29.59 kg/m2 Mirella Mccracken [facility] Medicine Work Phone: 01-04-2016 09:52-0400 Body weight 66.45 kg Mirella Mccracken [facility] Work Phone: 01-04-2016 09:52-0400 BP Diastolic 64 mm[Hg] Mirella Mccracken [facility] Work Phone: Comment on above: Patient Position: Sitting; Cuff Location : Left Arm; Cuff Size: Standard 01-04-2016 09:52-0400 BP Systolic 110 mm[Hg] Mirella Mccracken [facility] Work Phone: Comment on above: Patient Position: Sitting; Cuff Location : Left Arm; Cuff Size: Standard 01-04-2016 09:52-0400 BSA (Body Surface Area) 1.62 m2 Mirella Mccracken [facility] Work Phone: 01-04-2016 09:52-0400 Height 149.86 cm Mirella Mccracken [facility] Work Phone: 01-04-2016 09:52-0400 Pulse (Heart Rate) 64 /min Mirella Mccracken [facility] Work Phone: Comment on above: Pattern: Regular 01-04-2016 09:52-0400 Pulse Oximetry 97 % Mirella Mccracken [facility] Work Phone: Comment on above: Room air 01-04-2016 09:52-0400 Respiratory Rate 18 /min Mirella Mccracken [facility] Work Phone: Comment on above: Pattern: Unlabored 01-04-2016 09:52-0400 Weight 66.45 kg Mirella Mccracken [facility] Work Phone: 12-06-2015 09:19-0400 BMI (Body Mass Index) 29.89 kg/m2 Mirella [facility] Work Phone: 12-06-2015 09:19-0400 Body weight 67.13 kg Mirella Mccracken [facility] Work Phone: 12-06-2015 09:19-0400 BP Diastolic 78 mm[Hg] Mirella Mccracken [facility] Work Phone: Comment on above: Patient Position: Sitting; Cuff Location : Left Arm; Cuff Size: Large 12-06-2015 09:19-0400 BP Systolic 122 mm[Hg] Mirella Mccracken [facility] Work Phone: Comment on above: Patient Position: Sitting; Cuff Location : Left Arm; Cuff Size: Large 12-06-2015 09:190400 BSA (Body Surface Area) 1.62 m2 Mirella Mccracken [facility] Work Phone: 12-06-2015 09:19-0400 Height 149.86 cm Mirella Mccracken [facility] Work Phone: 12-06-2015 09:19-0400 Pulse (Heart Rate) 73 /min Mirella Mccracken [facility] Work Phone: Comment on above: Pattern: Regular 12-06-2015 09:19-0400 Pulse Oximetry 99 % Mirella Mccracken [facility] Work Phone: Comment on above: Room air 12-06-2015 09:19-0400 Respiratory Rate 18 /min Mirella Mccracken [facility] Work Phone: Comment on above: Pattern: Unlabored 12-06-2015 09:19-0400 Weight 67.13 kg Mirella Mccracken [facility] Work Phone: 11-29-2015 09:09-0400 BMI (Body Mass Index) 29.72 kg/m2 Mirella [facility] Work Phone: 11-29-2015 09:09-0400 Body Temperature 98.2 [degF] Mirella Mccracken [facility] Work Phone: Comment on above: Method: Oral 11-29-2015 09:09-0400 Body weight 66.74 kg Mirella Mccracken [facility] Work Phone: 11-29-2015 09:09-0400 BP Diastolic 58 mm[Hg] Mirella Mccracken [facility] Work Phone: Comment on above: Patient Position: Sitting; Cuff Location : Left Arm; Cuff Size: Large 11-29-2015 09:09-0400 BP Systolic 100 mm[Hg] Mirella Mccracken [facility] Work Phone: Comment on above: Patient Position: Sitting; Cuff Location : Left Arm; Cuff Size: Large 11-29-2015 09:09-0400 BSA (Body Surface Area) 1.62 m2 Mirella Mccracken [facility] Work Phone: 11-29-2015 09:09-0400 Height 149.86 cm Mirella Mccracken [facility] Work Phone: 11-29-2015 09:09-0400 Pulse (Heart Rate) 71 /min Mirella Mccracken [facility] Work Phone: Comment on above: Pattern: Regular 11-29-2015 09:09-0400 Pulse Oximetry 98 % Mirella Mccracken [facility] Work Phone: Comment on above: Room air 11-29-2015 09:09-0400 Respiratory Rate 18 /min Mirella Mccracken [facility] Work Phone: Comment on above: Pattern: Unlabored 11-29-2015 09:09-0400 Weight 66.74 kg Mirella Mccracken [facility] Work Phone: 10-24-2015 10:01-0500 BMI (Body Mass Index) 30.78 kg/m2 Mirella Mccracken [facility] Internal Medicine Work Phone: Comment on above: Dr. Goldstein and [facility] 10-24-2015 10:01-0500 Body weight 69.12 kg Mirella Mccracken [facility] Internal [facility] Work Phone: Comment on above: Dr. Goldstein and [facility] 10-24-2015 10:01-0500 BP Diastolic 82 mm[Hg] [facility] Work Phone: Comment on above: Patient Position: Sitting; Cuff Location : Left Arm; Cuff Size: Large [facility] 10:01-0500 BP Systolic 124 mm[Hg] [facility] Internal [facility] Work Phone: Comment on above: Patient Position: Sitting; Cuff Location : Left Arm; Cuff Size: Large [facility]-24-2015 10:01-0500 BSA (Body Surface Area) 1.64 m2 [facility] Medicine Work Phone: Comment on above: Dr. Goldstein and [facility] 10-24-2015 10:01-0500 Height 149.86 cm [facility] Work Phone: Comment on above: Dr. Goldstein and [facility] 10-24-2015 10:01-0500 Pulse (Heart Rate) 66 /min [facility] Work Phone: Comment on above: Pattern: Regular [facility]-24-2015 10:01-0500 Pulse Oximetry 98 % [facility] Work Phone: Comment on above: Room air [facility]-2015 10:01-0500 Respiratory Rate 18 /min [facility] Work Phone: Comment on above: Pattern: Unlabored Dr[facility]-24-2015 10:01-0500 Weight 69.12 kg [facility] Work Phone: Comment on above: Dr. Goldstein and [facility] 07-26-2015 10:22-0500 BMI (Body Mass Index) 32.32 kg/m2 Mirella Mccracken [facility] Medicine Work Phone: 07-26-2015 10:22-0500 Body weight 72.58 kg Mirella Mccracken [facility] Work Phone: 07-26-2015 10:22-0500 BP Diastolic 80 mm[Hg] Mirella Mccracken [facility] Work Phone: Comment on above: Patient Position: Sitting; Cuff Location : Left Arm; Cuff Size: Large 07-26-2015 10:22-0500 BP Systolic 138 mm[Hg] Mirella Mccracken [facility] Work Phone: Comment on above: Patient Position: Sitting; Cuff Location : Left Arm; Cuff Size: Large 07-26-2015 10:22-0500 BSA (Body Surface Area) 1.68 m2 Mirella Mccracken [facility] Work Phone: 07-26-2015 10:22-0500 Height 149.86 cm Mirella Mccracken [facility] Work Phone: 07-26-2015 10:22-0500 Pulse (Heart Rate) 62 /min Mirella Mccracken [facility] Work Phone: Comment on above: Pattern: Regular 07-26-2015 10:22-0500 Pulse Oximetry 98 % Mirella Mccracken [facility] Work Phone: Comment on above: Room air 07-26-2015 10:22-0500 Respiratory Rate 18 /min Mirella Mccracken [facility] Work Phone: Comment on above: Pattern: Unlabored 07-26-2015 10:22-0500 Weight 72.58 kg Mirella Mccracken [facility] Work Phone: 07-06-2015 09:03-0400 Body weight 72.12 kg Mirella Mccracken [facility] Work Phone: 07-06-2015 09:03-0400 BP Diastolic 78 mm[Hg] Mirella Mccracken [facility] Work Phone: Comment on above: Patient Position: Sitting; Cuff Location : Left Arm; Cuff Size: Large 07-06-2015 09:03-0400 BP Systolic 122 mm[Hg] Mirella Mccracken [facility] Work Phone: Comment on above: Patient Position: Sitting; Cuff Location : Left Arm; Cuff Size: Large 07-06-2015 09:03-0400 Pulse (Heart Rate) 68 /min Mirella Mccracken [facility] Work Phone: Comment on above: Pattern: Regular 07-06-2015 09:03-0400 Pulse Oximetry 98 % Mirella Mccracken [facility] Work Phone: Comment on above: Room air 07-06-2015 09:03-0400 Respiratory Rate 18 /min Mirella Mccracken [facility] Work Phone: Comment on above: Pattern: Unlabored 07-06-2015 09:03-0400 Weight 72.12 kg Mirella Mccracken [facility] Work Phone: 04-19-2015 10:10-0400 BMI (Body Mass Index) 31.02 kg/m2 Mirella Mccracken [facility] Work Phone: 04-19-2015 10:10-0400 Body Temperature 97.5 [degF] Mirella Mccracken [facility] Work Phone: Comment on above: Method: Temporal 04-19-2015 10:10-0400 Body weight 69.67 kg Mirella Mccracken [facility] Work Phone: 04-19-2015 10:10-0400 BP Diastolic 82 mm[Hg] Mirella Mccracken [facility] Work Phone: Comment on above: Patient Position: Sitting; Cuff Location : Left Arm; Cuff Size: Standard 04-19-2015 10:10-0400 BP Systolic 124 mm[Hg] Mirella Mccracken [facility] Work Phone: Comment on above: Patient Position: Sitting; Cuff Location : Left Arm; Cuff Size: Standard 04-19-2015 10:10-0400 BSA (Body Surface Area) 1.65 m2 Mirella Mccracken [facility] Work Phone: 04-19-2015 10:100400 Height 149.86 cm Mirella Mccracken [facility] Work Phone: 04-19-2015 10:10-0400 Pulse (Heart Rate) 62 /min Mirella Mccracken [facility] Work Phone: Comment on above: Pattern: Regular 04-19-2015 10:10-0400 Pulse Oximetry 98 % Mirella Mccracken [facility] Work Phone: Comment on above: Room air 04-19-2015 10:10-0400 Respiratory Rate 16 /min Mirella Mccracken [facility] Work Phone: Comment on above: Pattern: Unlabored 04-19-2015 10:10-0400 Weight 69.67 kg Mirella Mccracken [facility] Work Phone: 01-11-2015 10:29-0400 BMI (Body Mass Index) 31.2 kg/m2 Mirella Mccracken [facility] Work Phone: 01-11-2015 10:29-0400 Body weight 70.08 kg Mirella Mccracken [facility] Work Phone: 01-11-2015 10:29-0400 BP Diastolic 80 mm[Hg] Mirella Mccracken [facility] Work Phone: Comment on above: Patient Position: Sitting; Cuff Location : Left Arm; Cuff Size: Standard 01-11-2015 10:29-0400 BP Systolic 128 mm[Hg] Mirella Mccracken [facility] Work Phone: Comment on above: Patient Position: Sitting; Cuff Location : Left Arm; Cuff Size: Standard 01-11-2015 10:29-0400 BSA (Body Surface Area) 1.65 m2 Mirella Mccracken [facility] Work Phone: 01-11-2015 10:29-0400 Height 149.86 cm Mirella Mccracken [facility] Work Phone: 01-11-2015 [...] 11:54-0500 Pulse (Heart Rate) 52 /min Mirella [facility] Work Phone: [...] Work Phone: Comment on above: Method: Oral [facility] Fraire [facility] 03/2014[facility] 10-12-2014 10:10-0500 Body weight 70.76 kg Mirella [facility] Work Phone: Comment on above: [facility] 03/2014[place] 10-12-2014 10:10-0500 BP Diastolic 82 mm[Hg] Mirella Mccrack[facility] Work Phone: Comment on above: Patient Position: Sitting; Cuff Location : Left Arm; Cuff Size: Large [facility] 03/2014[facility] 10-12-2014 10:10-0500 BP Systolic 132 mm[Hg] Mirella Mccrack[facility] Work Phone: Comment on above: Patient Position: Sitting; Cuff Location : Left Arm; Cuff Size: Large [facility] 03/2014[facility] 10-12-2014 10:10-0500 Pulse (Heart Rate) 61 /min Mirella Mccrack[facility] Work Phone: Comment on above: Pattern: Regular [facility] Fraire [facility] 03/2014[facility] 10-12-2014 10:10-0500 Pulse Oximetry 96 % Mirella Mccrack[facility] Work Phone: Comment on above: Room air [facility] Fraire [facility] 03/2014[facility] 10-12-2014 10:10-0500 Respiratory Rate 18 /min Mirella Mccrack[facility] Work Phone: Comment on above: Pattern: Unlabored [facility] Fraire [facility] 03/2014[facility] 10-12-2014 10:10-0500 Weight 70.76 kg Mirella M[facility]rack[facility] Work Phone: Comment on above: [facility] 03/2014[place] 08-31-2014 11:25-0500 Body weight 68.66 kg Mirella [...] 08-31-2014 11:25-0500 Respiratory Rate 18 /min Mirella [facility] Work Phone: Comment on above: Pattern: Unlabored 08-31-2014 11:25-0500 Weight 68.66 kg Mirella Mccracken [facility] Internal Medicine Work Phone: 08-14-2014 14:10-0500 Body Temperature 97.3 [degF] Mirella [facility] Work Phone: Comment on above: Method: Oral 08-14-2014 14:10-0500 Body weight 69.15 kg Mirella [facility] Work Phone: 08-14-2014 14:10-0500 BP Diastolic 72 mm[Hg] Mirella [facility] Work Phone: Comment on above: Patient Position: Sitting; Cuff Location : Left Arm; Cuff Size: Standard 08-14-2014 14:10-0500 BP Systolic 132 mm[Hg] Mirella [facility] Work Phone: Comment on above: Patient Position: Sitting; Cuff Location : Left Arm; Cuff Size: Standard 08-14-2014 14:10-0500 Pulse (Heart Rate) 53 /min Mirella [facility] Work Phone: Comment on above: Pattern: Regular 08-14-2014 14:10-0500 Pulse Oximetry 97 % Mirella Mccracken [facility] Internal Medicine Work Phone: Comment on above: Room air 08-14-2014 14:10-0500 Respiratory Rate 16 /min Mirella Mccracken [facility] Internal Medicine Work Phone: Comment on above: Pattern: Unlabored 08-14-2014 14:10-0500 Weight 69.15 kg Mirella Mccracken [facility] Internal Medicine Work Phone: 07-26-2014 10:15-0500 BMI (Body Mass Index) 30.55 kg/m2 Mirella Mccracken [facility] Internal Medicine Work Phone: 07-26-2014 10:15-0500 Body Temperature 97.4 [degF] Mirella Mccracken [facility] Internal Medicine Work Phone: Comment on above: Method: Oral 07-26-2014 10:15-0500 Body weight 68.61 kg Mirella Mccracken [facility] Internal Medicine Work Phone: 07-26-2014 10:15-0500 BP Diastolic 70 mm[Hg] Mirella Mccracken [facility] Internal Medicine Work Phone: Comment on above: Patient Position: Sitting; Cuff Location : Left Arm; Cuff Size: Standard 07-26-2014 10:15-0500 BP Systolic 110 mm[Hg] Mirella Mccracken [facility] Internal Medicine Work Phone: Comment on above: Patient Position: Sitting; Cuff Location : Left Arm; Cuff Size: Standard 07-26-2014 10:15-0500 BSA (Body Surface Area) 1.64 m2 Mirella Mccracken [facility] Internal Medicine Work Phone: 07-26-2014 10:15-0500 Height 149.86 cm Mirella Mccracken [facility] Medicine Work Phone: 07-26-2014 10:15-0500 Pulse (Heart Rate) 66 /min Mirella Mccracken [facility] Internal Medicine Work Phone: Comment on above: Pattern: Regular 07-26-2014 10:15-0500 Pulse Oximetry 95 % Mirella Mccracken [facility] Medicine Work Phone: Comment on above: Room air 07-26-2014 10:15-0500 Respiratory Rate 15 /min Mirella Mccracken [facility] Work Phone: 07-26-2014 10:15-0500 Weight 68.61 kg Mirella Mccracken [facility] Internal Medicine Work Phone: 07-25-2014 14:56-0500 BMI (Body Mass Index) 30.55 kg/m2 Mirella Mccracken [facility] Internal Medicine Work Phone: 07-25-2014 14:56-0500 Body weight 68.61 kg Mirella Mccracken [facility] Internal Medicine Work Phone: 07-25-2014 14:56-0500 BP Diastolic 80 mm[Hg] Mirella Mccracken [facility] Internal Medicine Work Phone: Comment on above: Patient Position: Sitting; Cuff Location : Left Arm; Cuff Size: Large 07-25-2014 14:56-0500 BP Systolic 140 mm[Hg] Mirella Mccracken [facility] Internal Medicine Work Phone: Comment on above: Patient Position: Sitting; Cuff Location : Left Arm; Cuff Size: Large 07-25-2014 14:56-0500 BSA (Body Surface Area) 1.64 m2 Mirella Mccracken [facility] Internal Medicine Work Phone: 07-25-2014 14:56-0500 Height 149.86 cm Mirella Mccracken [facility] Internal Medicine Work Phone: 07-25-2014 14:56-0500 Pulse (Heart Rate) 59 /min Mirella Mccracken [facility] Internal Medicine Work Phone: Comment on above: Pattern: Regular 07-25-2014 14:56-0500 Pulse Oximetry 98 % Mirella Mccracken [facility] Internal Medicine Work Phone: Comment on above: Room air 07-25-2014 14:56-0500 Respiratory Rate 18 /min Mirella Mccracken [facility] Internal Medicine Work Phone: Comment on above: Pattern: Unlabored 07-25-2014 14:56-0500 Weight 68.61 kg Mirella Mccracken [facility] Internal Medicine Work Phone: 07-13-2014 12:20-0400 BMI (Body Mass Index) 30.5 kg/m2 Mirella [facility] Work Phone: 07-13-2014 12:20-0400 Body weight 68.49 kg Mirella Mccracken [facility] Internal Medicine Work Phone: 07-13-2014 12:20-0400 BP Diastolic 78 mm[Hg] Mirella Mccracken [facility] Internal Medicine Work Phone: Comment on above: Patient Position: Sitting; Cuff Location : Left Arm; Cuff Size: Large 07-13-2014 12:20-0400 BP Systolic 138 mm[Hg] Mirella Mccracken [facility] Internal Medicine Work Phone: Comment on above: Patient Position: Sitting; Cuff Location : Left Arm; Cuff Size: Large 07-13-2014 12:20-0400 BSA (Body Surface Area) 1.64 m2 Mirella Mccracken [facility] Internal Medicine Work Phone: 07-13-2014 12:20-0400 Height 149.86 cm Mirella Mccracken [facility] Internal Medicine Work Phone: 07-13-2014 12:20-0400 Pulse (Heart Rate) 58 /min Mirella Mccracken [facility] Internal Medicine Work Phone: Comment on above: Pattern: Regular 07-13-2014 12:20-0400 Pulse Oximetry 96 % Mirella Mccracken [facility] Internal Medicine Work Phone: Comment on above: Room air 07-13-2014 12:20-0400 Respiratory Rate 20 /min Mirella Mccracken [facility] Internal Medicine Work Phone: Comment on above: Pattern: Unlabored 07-13-2014 12:20-0400 Weight 68.49 kg Mirella Mccracken [facility] Internal Medicine Work Phone: 04-17-2014 11:27-0400 BMI (Body Mass Index) 30.59 kg/m2 Mirella [facility] Work Phone: 04-17-2014 11:27-0400 Body weight 68.69 kg Mirella Mccracken [facility] Internal Medicine Work Phone: 04-17-2014 11:27-0400 BP Diastolic 70 mm[Hg] Mirella Mccracken [facility] Internal Medicine Work Phone: Comment on above: Patient Position: Sitting; Cuff Location : Left Arm; Cuff Size: Large 04-17-2014 11:27-0400 BP Systolic 124 mm[Hg] Mirella Mccracken [facility] Work Phone: Comment on above: Patient Position: Sitting; Cuff Location : Left Arm; Cuff Size: Large 04-17-2014 11:27-0400 BSA (Body Surface Area) 1.64 m2 Mirella Mccracken [facility] Internal Medicine Work Phone: 04-17-2014 11:27-0400 Height 149.86 cm Mirella Mccracken [facility] Medicine Work Phone: 04-17-2014 11:27-0400 Pulse (Heart Rate) 72 /min Mirella Mccracken [facility] Internal Medicine Work Phone: Comment on above: Pattern: Regular 04-17-2014 11:27-0400 Pulse Oximetry 97 % Mirella Mccracken [facility] Work Phone: Comment on above: Room air 04-17-2014 11:27-0400 Respiratory Rate 18 /min Mirella Mccracken [facility] Work Phone: Comment on above: Pattern: Unlabored 04-17-2014 11:27-0400 Weight 68.69 kg Mirella Mccracken [facility] Internal Medicine Work Phone: 04-06-2014 11:09-0400 BMI (Body Mass Index) 30.59 kg/m2 Mirella Mccracken [facility] Internal Medicine Work Phone: 04-06-2014 11:09-040 Body weight 68.69 kg Mirella Mccracken [facility] Internal Medicine Work Phone: 04-06-2014 11:09-0400 BP Diastolic 80 mm[Hg] Mirella Mccracken [facility] Internal Medicine Work Phone: Comment on above: Patient Position: Sitting; Cuff Location : Left Arm; Cuff Size: Standard 04-06-2014 11:090400 BP Systolic 142 mm[Hg] Mirella Mccracken [facility] Work Phone: Comment on above: Patient Position: Sitting; Cuff Location : Left Arm; Cuff Size: Standard 04-06-2014 11:090400 BSA (Body Surface Area) 1.64 m2 Mirella Mccracken [facility] Medicine Work Phone: 04-06-2014 11:040 Height 149.86 cm Mirella Mccracken [facility] Work Phone: 04-06-2014 11:090400 Pulse (Heart Rate) 73 /min Mirella Mccracken [facility] Work Phone: Comment on above: Pattern: Regular 04-06-2014 11:090400 Pulse Oximetry 97 % Mirella Mccracken [facility] Work Phone: Comment on above: Room air 04-06-2014 11:0400 Respiratory Rate 18 /min Mirella Mccracken [facility] Work Phone: Comment on above: Pattern: Unlabored 04-06-2014 11:0400 Weight 68.69 kg Mirella Mccracken [facility] Internal [facility] Work Phone: 12-30-2013 10:27-0400 BMI (Body Mass Index) 32.03 kg/m2 Mirella Mccracken [facility] Work Phone: 12-30-2013 10:27-0400 Body Temperature 98.2 [degF] Mirella Mccracken [facility] Work Phone: Comment on above: Method: Oral 12-30-2013 10:27-0400 Body weight 71.92 kg Mirella Mccracken [facility] Work Phone: 12-30-2013 10:27-0400 BP Diastolic 70 mm[Hg] Mirella Mccracken [facility] Work Phone: Comment on above: Patient Position: Sitting; Cuff Location : Left Arm; Cuff Size: Large 12-30-2013 10:27-0400 BP Systolic 120 mm[Hg] Mirella Mccracken [facility] Work Phone: Comment on above: Patient Position: Sitting; Cuff Location : Left Arm; Cuff Size: Large 12-30-2013 10:270400 BSA (Body Surface Area) 1.67 m2 Mirella Mccracken [facility] Work Phone: 12-30-2013 10:27-0400 Height 149.86 cm Mirella Mccracken [facility] Work Phone: 12-30-2013 10:27-0400 Pulse (Heart Rate) 66 /min Mirella Mccracken [facility] Work Phone: Comment on above: Pattern: Regular 12-30-2013 10:0400 Pulse Oximetry 97 % Mirella Mccracken [facility] Internal Medicine Work Phone: Comment on above: Room air 12-30-2013 10:0400 Respiratory Rate 20 /min Mirella Mccracken [facility] Work Phone: Comment on above: Pattern: Unlabored 12-30-2013 10:0400 Weight 71.92 kg Mirella Mccracken [facility] Internal Medicine Work Phone: 12-22-2013 10:090400 BMI (Body Mass Index) 31.79 kg/m2 Mirella [facility] Internal Medicine Work Phone: 12-22-2013 10:09-0400 Body Temperature 98.2 [degF] Mirella Mccracken [facility] Work Phone: Comment on above: Method: Oral 12-22-2013 10:090400 Body weight 71.39 kg Mirella Mccracken [facility] Work Phone: 12-22-2013 10:09-0400 BP Diastolic 60 mm[Hg] Mirella Mccracken [facility] Work Phone: Comment on above: Patient Position: Sitting; Cuff Location : Left Arm; Cuff Size: Large 12-22-2013 10:09-0400 BP Systolic 104 mm[Hg] Mirella Mccracken [facility] Work Phone: Comment on above: Patient Position: Sitting; Cuff Location : Left Arm; Cuff Size: Large 12-22-2013 10:09-0400 BSA (Body Surface Area) 1.67 m2 Mirella Mccracken [facility] Internal Medicine Work Phone: 12-22-2013 10:09-0400 Height 149.86 cm Mirella Mccracken [facility] Work Phone: 12-22-2013 10:09-0400 Pulse (Heart Rate) 65 /min Mirella Mccracken [facility] Internal [facility] Work Phone: Comment on above: Pattern: Regular 12-22-2013 10:09-0400 Pulse Oximetry 98 % Mirella Mccracken [facility] Internal Medicine Work Phone: Comment on above: Room air 12-22-2013 10:090400 Respiratory Rate 20 /min Mirella Mccracken [facility] Internal Medicine Work Phone: Comment on above: Pattern: Unlabored 12-22-2013 10:090400 Weight 71.39 kg Mirella Mccracken [facility] Internal Medicine Work Phone: 12-01-2013 09:54-0400 BMI (Body Mass Index) 32.32 kg/m2 Mirella [facility]ccracken [facility] Work Phone: 12-01-2013 09:54-0400 Body Temperature 98.4 [degF] Mirella Mccracken [facility] Work Phone: Comment on above: Method: Temporal 12-01-2013 09:54-0400 Body weight 72.58 kg Mirella Mccracken [facility] Work Phone: 12-01-2013 09:54-0400 BP Diastolic 62 mm[Hg] Mirella Mccracken [facility] Work Phone: Comment on above: Patient Position: Sitting; Cuff Location : Left Arm; Cuff Size: Standard 12-01-2013 09:54-0400 BP Systolic 124 mm[Hg] Mirella Mccracken [facility] Work Phone: Comment on above: Patient Position: Sitting; Cuff Location : Left Arm; Cuff Size: Standard 12-01-2013 09:54-0400 BSA (Body Surface Area) 1.68 m2 Mirella Mccracken [facility] Work Phone: 12-01-2013 09:54-0400 Height 149.86 cm Mirella Mccracken [facility] Medicine Work Phone: 12-01-2013 09:54-0400 Pulse (Heart Rate) 69 /min Mirella Mccracken [facility] Work Phone: Comment on above: Pattern: Regular 12-01-2013 09:54-0400 Pulse Oximetry 97 % Mirella Mccracken [facility] Work Phone: Comment on above: Room air 12-01-2013 09:54-0400 Respiratory Rate 16 /min Mirella Mccracken [facility] Internal [facility] Work Phone: Comment on above: Pattern: Unlabored 12-01-2013 09:54-0400 Weight 72.58 kg Mirella Mccracken [facility] Work Phone: 09-23-2013 11:57-0500 BMI (Body Mass Index) 33.01 kg/m2 Mirella Mccracken [facility] Work Phone: 09-23-2013 11:57-0500 Body weight 74.14 kg Mirella Mccracken [facility] Medicine Work Phone: 09-23-2013 11:57-0500 BP Diastolic 80 mm[Hg] Mirella Mccracken [facility] Work Phone: Comment on above: Patient Position: Sitting; Cuff Location : Left Arm; Cuff Size: Large 09-23-2013 11:57-0500 BP Systolic 122 mm[Hg] Mirella Mccracken [facility] Work Phone: Comment on above: Patient Position: Sitting; Cuff Location : Left Arm; Cuff Size: Large 09-23-2013 11:57-0500 BSA (Body Surface Area) 1.69 m2 Mirella Mccracken [facility] Internal Medicine Work Phone: 09-23-2013 11:57-0500 Height 149.86 cm Mirella Mccracken [facility] Work Phone: 09-23-2013 11:57-0500 Pulse (Heart Rate) 66 /min Mirella Mccracken [facility] Work Phone: Comment on above: Pattern: Regular 09-23-2013 11:57-0500 Pulse Oximetry 98 % Mirella Mccracken [facility] Medicine Work Phone: Comment on above: Room air 09-23-2013 11:57-0500 Respiratory Rate 18 /min Mirella Mccracken [facility] Work Phone: Comment on above: Pattern: Unlabored 09-23-2013 11:57-0500 Weight 74.14 kg Mirella Mccracken [facility] Work Phone: 08-01-2013 10:54-0500 BMI (Body Mass Index) 33.58 kg/m2 Mirella Mccracken [facility] Work Phone: 08-01-2013 10:54-0500 Body Temperature 98.3 [degF] Mirella Mccracken [facility] Work Phone: Comment on above: Method: Oral 08-01-2013 10:54-0500 Body weight 75.41 kg Mirella Mccracken [facility] Work Phone: 08-01-2013 10:54-0500 BP Diastolic 60 mm[Hg] Mirella Mccracken [facility] Work Phone: Comment on above: Patient Position: Sitting; Cuff Location : Left Arm; Cuff Size: Large 08-01-2013 10:54-0500 BP Systolic 102 mm[Hg] Mirella Mccracken [facility] Work Phone: Comment on above: Patient Position: Sitting; Cuff Location : Left Arm; Cuff Size: Large 08-01-2013 10:54-0500 BSA (Body Surface Area) 1.7 m2 Mirella Mccracken [facility] Work Phone: 08-01-2013 10:54-0500 Height 149.86 cm Mirella Mccracken [facility] Work Phone: 08-01-2013 10:54-0500 Pulse (Heart Rate) 68 /min Mirella Mccracken [facility] Work Phone: Comment on above: Pattern: Regular 08-01-2013 10:54-0500 Pulse Oximetry 97 % Mirella Mccracken [facility] Medicine Work Phone: Comment on above: Room air 08-01-2013 10:54-0500 Respiratory Rate 20 /min Mirella Mccracken [facility] Work Phone: Comment on above: Pattern: Unlabored 08-01-2013 10:54-0500 Weight 75.41 kg Mirella Mccracken [facility] Work Phone: 07-04-2013 09:33-0400 BMI (Body Mass Index) 33.73 kg/m2 Mirella [facility]racken [facility] Work Phone: Comment on above: hearing wnlvольга Jones 07-04-2013 09:33-0400 Body Temperature 98.2 [degF] Mirella [facility] Internal Medicine Work Phone: Comment on above: Method: Oral hearing wnlvольга Jones 07-04-2013 09:33-0400 Body weight 75.75 kg [facility] Work [facility]: Comment on above: hearing wnlvision Dr. Jones 07-04-2013 09:33-0400 BP Diastolic 62 mm[Hg] Mirella [facility] Internal Medicine Work Phone: Comment on above: Patient Position: Sitting; Cuff Location : Left Arm; Cuff Size: Large hearing denae Jones 07-04-2013 09:33-0400 BP Systolic 120 mm[Hg] Mirella [facility] Internal Medicine Work Phone: Comment on above: Patient Position: Sitting; Cuff Location : Left Arm; Cuff Size: Large hearing denae Jones 07-04-2013 09:33-0400 BSA (Body Surface Area) 1.71 m2 Mirella [facility] Internal Medicine Work Phone: Comment on above: hearing wnlvision Dr. Jones 07-04-2013 09:33-0400 Height 149.86 cm [facility] Internal Medicine Work Phone: Comment on above: hearing wnlvision Dr. Jones 07-04-2013 09:33-0400 Pulse (Heart Rate) 52 /min Mirella Mccracken [facility] Medicine Work Phone: Comment on above: Pattern: Regular hearing wnlvision Dr Samaria Jones 07-04-2013 09:33-0400 Pulse Oximetry 97 % Mirella Mccracken [facility] Medicine Work Phone: Comment on above: Room air hearing wnlvision Dr Samaria Jones 07-04-2013 09:33-0400 Respiratory Rate 20 /min Mirella Mccracken [facility] Medicine Work Phone: Comment on above: Pattern: Unlabored hearing wnlvision Dr Samaria Jones 07-04-2013 09:33-0400 Weight 75.75 kg Mirella Mccracken [facility] Medicine Work Phone: Comment on above: hearing wnlvision Dr. Jones 06-27-2013 14:49-0400 BMI (Body Mass Index) 33.73 kg/m2 Mirella [facility]racken [facility] Medicine Work Phone: 06-27-2013 14:49-0400 Body weight 75.75 kg Mirella Mccracken [facility] Medicine Work Phone: 06-27-2013 14:49-0400 BP Diastolic 62 mm[Hg] [facility] Work [facility]: Comment on above: Patient Position: Sitting; Cuff Location : Left Arm; Cuff Size: Large 06-27-2013 14:49-0400 BP Systolic 128 mm[Hg] [facility] Work Phone: Comment on above: Patient Position: Sitting; Cuff Location : Left Arm; Cuff Size: Large 06-27-2013 14:49-0400 BSA (Body Surface Area) 1.71 m2 Mirella Mccracken [facility] Medicine Work Phone: 06-27-2013 14:49-0400 Height 149.86 cm [facility] Work Phone: 06-27-2013 14:49-0400 Pulse (Heart Rate) 61 /min Mirella Mccracken [facility] Medicine Work Phone: Comment on above: Pattern: Regular 06-27-2013 14:49-0400 Pulse Oximetry 98 % Mirella Mccracken [facility] Internal Medicine Work Phone: Comment on above: Room air 06-27-2013 14:49-0400 Respiratory Rate 20 /min Mirella Mccracken [facility] Medicine Work Phone: Comment on above: Pattern: Unlabored 06-27-2013 14:49-0400 Weight 75.75 kg Mirella Mccracken [facility] Medicine Work Phone: 06-20-2013 12:56-0400 BMI (Body Mass Index) 33.53 kg/m2 Mirella Mccracken [facility] Medicine Work Phone: 06-20-2013 12:56-0400 Body Temperature 97.6 [degF] Mirella Mccracken [facility] Medicine Work Phone: Comment on above: Method: Oral 06-20-2013 12:56-0400 Body weight 75.3 kg Mirella Mccracken [facility] Medicine Work Phone: 06-20-2013 12:56-0400 BP Diastolic 68 mm[Hg] Mirella Mccracken [facility] Medicine Work Phone: Comment on above: Patient Position: Sitting; Cuff Location : Left Arm; Cuff Size: Standard 06-20-2013 12:56-0400 BP Systolic 118 mm[Hg] Mirella Mccracken [facility] Medicine Work Phone: Comment on above: Patient Position: Sitting; Cuff Location : Left Arm; Cuff Size: Standard 06-20-2013 12:56-0400 BSA (Body Surface Area) 1.7 m2 Mirella Mccracken [facility] Internal Medicine Work Phone: 06-20-2013 12:56-0400 Height 149.86 cm Mirella Mccracken [facility] Medicine Work Phone: 06-20-2013 12:56-0400 Pulse (Heart Rate) 68 /min Mirella Mccracken [facility] Internal Medicine Work Phone: Comment on above: Pattern: Regular 06-20-2013 12:56-0400 Respiratory Rate 20 /min Mirella Mccracken [facility] Internal Medicine Work Phone: Comment on above: Pattern: Unlabored 06-20-2013 12:56-0400 Weight 75.3 kg Mirella Mccracken [facility] Internal Medicine Work Phone: 05-20-2013 08:13-0400 BMI (Body Mass Index) 33.63 kg/m2 Mirella Mccracken [facility] Internal Medicine Work Phone: 05-20-2013 08:13-0400 Body weight 75.52 kg Mirella Mccracken [facility] Internal Medicine Work Phone: 05-20-2013 08:13-0400 BP Diastolic 62 mm[Hg] Mirella Mccracken [facility] Internal Medicine Work Phone: Comment on above: Patient Position: Sitting; Cuff Location : Left Arm; Cuff Size: Standard 05-20-2013 08:13-0400 BP Systolic 128 mm[Hg] Mirella Mccracken [facility] Internal Medicine Work Phone: Comment on above: Patient Position: Sitting; Cuff Location : Left Arm; Cuff Size: Standard 05-20-2013 08:13-0400 BSA (Body Surface Area) 1.71 m2 Mirella Mccracken [facility] Internal Medicine Work Phone: 05-20-2013 08:13-0400 Height 149.86 cm Mirella Mccracken [facility] Internal Medicine Work Phone: 05-20-2013 08:13-0400 Pulse (Heart Rate) 60 /min Mirella Mccracken [facility] Internal Medicine Work Phone: Comment on above: Pattern: Regular 05-20-2013 08:13-0400 Respiratory Rate 20 /min Mirella Mccracken [facility] Internal Medicine Work Phone: Comment on above: Pattern: Unlabored 05-20-2013 08:13-0400 Weight 75.52 kg Mirella Mccracken [facility] Internal Medicine Work Phone: 04-22-2013 15:16-0400 BMI (Body Mass Index) 33.63 kg/m2 Mirella [facility] Internal Medicine Work Phone: 04-22-2013 15:16-0400 Body Temperature 96 [degF] Mirella M[facility]racken [facility] Internal Medicine Work Phone: Comment on above: Method: Oral 04-22-2013 15:16-0400 Body weight 75.52 kg Mirella Mccracken [facility] Internal Medicine Work Phone: 04-22-2013 15:16-0400 BP Diastolic 74 mm[Hg] Mirella Mccracken [facility] Internal Medicine Work Phone: Comment on above: Patient Position: Sitting; Cuff Location : Left Arm; Cuff Size: Large 04-22-2013 15:16-0400 BP Systolic 126 mm[Hg] Mirella Mccracken [facility] Internal Medicine Work Phone: Comment on above: Patient Position: Sitting; Cuff Location : Left Arm; Cuff Size: Large 04-22-2013 15:16-0400 BSA (Body Surface Area) 1.71 m2 Mirella Mccracken [facility] Internal Medicine Work Phone: 04-22-2013 15:16-0400 Height 149.86 cm Mirella Mccracken [facility] Internal Medicine Work Phone: 04-22-2013 15:16-0400 Pulse (Heart Rate) 64 /min Mirella Mccracken [facility] Internal Medicine Work Phone: Comment on above: Pattern: Regular 04-22-2013 15:16-0400 Respiratory Rate 18 /min Mirella Mccracken [facility] Internal Medicine Work Phone: Comment on above: Pattern: Unlabored 04-22-2013 15:16-0400 Weight 75.52 kg Mirella Mccracken [facility] Internal Medicine Work Phone: 04-15-2013 15:12-0400 BMI (Body Mass Index) 34.65 kg/m2 Mirella Solano [facility] Internal Medicine Work Phone: 04-15-2013 15:12-0400 Body Temperature 98 [degF] Mirella Mccracken [facility] Internal Medicine Work Phone: Comment on above: Method: Oral 04-15-2013 15:12-0400 Body weight 77.82 kg Mirella Mccracken [facility] Internal Medicine Work Phone: 04-15-2013 15:12-0400 BP Diastolic 70 mm[Hg] Mirella Mccracken [facility] Internal Medicine Work Phone: Comment on above: Patient Position: Sitting; Cuff Location : Left Arm; Cuff Size: Standard 04-15-2013 15:12-0400 BP Systolic 120 mm[Hg] Mirlela Mccracken [facility] Internal Medicine Work Phone: Comment on above: Patient Position: Sitting; Cuff Location : Left Arm; Cuff Size: Standard 04-15-2013 15:12-0400 BSA (Body Surface Area) 1.73 m2 Mirella Mccracken [facility] Internal Medicine Work Phone: 04-15-2013 15:12-0400 Height 149.86 cm Mirella Mccracken [facility] Internal Medicine Work Phone: 04-15-2013 15:12-0400 Pulse (Heart Rate) 64 /min Mirella Mccracken [facility] Internal Medicine Work Phone: Comment on above: Pattern: Regular 04-15-2013 15:12-0400 Pulse Oximetry 98 % Mirella Mccracken [facility] Internal Medicine Work Phone: Comment on above: Room air 04-15-2013 15:12-0400 Weight 77.82 kg Mirella Mccracken [facility] Internal Medicine Work Phone: 03-31-2013 11:15-0400 BMI (Body Mass Index) 32.96 kg/m2 Mirella Mccracken [facility] Internal Medicine Work Phone: 03-31-2013 11:15-0400 Body Temperature 97.5 [degF] Mirella Mccracken [facility] Internal Medicine Work Phone: Comment on above: Method: Oral 03-31-2013 11:15-0400 Body weight 74.02 kg Mirella Mccracken [facility] Internal Medicine Work Phone: 03-31-2013 11:15-0400 BP Diastolic 60 mm[Hg] Mirella Mccracken [facility] Internal Medicine Work Phone: Comment on above: Patient Position: Sitting; Cuff Location : Left Arm; Cuff Size: Large 03-31-2013 11:15-0400 BP Systolic 118 mm[Hg] Mirella Mccracken [facility] Internal Medicine Work Phone: Comment on above: Patient Position: Sitting; Cuff Location : Left Arm; Cuff Size: Large 03-31-2013 11:15-0400 BSA (Body Surface Area) 1.69 m2 Mirella Mccracken [facility] Internal Medicine Work Phone: 03-31-2013 11:15-0400 Height 149.86 cm Mirella Mccracken [facility] Internal Medicine Work Phone: 03-31-2013 11:15-0400 Pulse (Heart Rate) 60 /min Mirella Mccracken [facility] Internal Medicine Work Phone: Comment on above: Pattern: Regular 03-31-2013 11:15-0400 Respiratory Rate 20 /min Mirella Mccracken [facility] Internal Medicine Work Phone: Comment on above: Pattern: Unlabored 03-31-2013 11:15-0400 Weight 74.02 kg Mirella Mccracken [facility] Internal Medicine Work Phone: 02-28-2013 09:53-0400 BMI (Body Mass Index) 32.57 kg/m2 Mirella Mccracken [facility] Internal Medicine Work Phone: 02-28-2013 09:53-0400 Body Temperature 98.3 [degF] Mirella Mccracken [facility] Internal Medicine Work Phone: Comment on above: Method: Oral 02-28-2013 09:53-0400 Body weight 73.14 kg Mirella Mccracken [facility] Internal Medicine Work Phone: 02-28-2013 09:53-0400 BP Diastolic 62 mm[Hg] Mirella Mccracken [facility] Internal Medicine Work Phone: Comment on above: Patient Position: Sitting; Cuff Location : Left Arm; Cuff Size: Large 02-28-2013 09:53-0400 BP Systolic 120 mm[Hg] [facility] Work [facility]: Comment on above: Patient Position: Sitting; Cuff Location : Left Arm; Cuff Size: Large 02-28-2013 09:53-0400 BSA (Body Surface Area) 1.68 m2 Mirella Mccracken [facility] Internal Medicine Work Phone: 02-28-2013 09:53-0400 Height 149.86 cm Mirlela Mccracken [facility] Internal Medicine Work Phone: 02-28-2013 09:53-0400 Pulse (Heart Rate) 60 /min Mirella Mccracken [facility] Internal Medicine Work Phone: Comment on above: Pattern: Regular 02-28-2013 09:53-0400 Respiratory Rate 18 /min Mirella Mccracken [facility] Internal Medicine Work Phone: Comment on above: Pattern: Unlabored 02-28-2013 09:53-0400 Weight 73.14 kg Mirella Mccracken [facility] Internal Medicine Work Phone: 11-15-2012 14:01-0500 BMI (Body Mass Index) 32.57 kg/m2 Mirella Mccracken [facility] Internal Medicine Work Phone: 11-15-2012 14:01-0500 Body Temperature 97.9 [degF] Mirella Mccracken [facility] Internal Medicine Work Phone: Comment on above: Method: Oral 11-15-2012 14:01-0500 Body weight 73.14 kg Mirella Mccracken [facility] Internal Medicine Work Phone: 11-15-2012 14:01-0500 BP Diastolic 78 mm[Hg] [facility] Work [facility]: Comment on above: Patient Position: Sitting; Cuff Location : Left Arm; Cuff Size: Large 11-15-2012 14:01-0500 BP Systolic 122 mm[Hg] Mirella Mccracken [facility] Internal Medicine Work Phone: Comment on above: Patient Position: Sitting; Cuff Location : Left Arm; Cuff Size: Large 11-15-2012 14:01-0500 BSA (Body Surface Area) 1.68 m2 Mirella Mccracken [facility] Internal Medicine Work Phone: 11-15-2012 14:01-0500 Height 149.86 cm Mirella Mccracken [facility] Internal Medicine Work Phone: 11-15-2012 14:01-0500 Pulse (Heart Rate) 72 /min Mirella Mccracken [facility] Internal Medicine Work Phone: Comment on above: Pattern: Regular 11-15-2012 14:01-0500 Respiratory Rate 20 /min Mirella Mccracken [facility] Internal Medicine Work Phone: Comment on above: Pattern: Unlabored 11-15-2012 14:01-0500 Weight 73.14 kg Mirella Mccracken [facility] Internal Medicine Work Phone: 10-25-2012 11:26-0500 BMI (Body Mass Index) 32.74 kg/m2 Mirella Mccracken [facility] Internal Medicine Work Phone: 10-25-2012 11:26-0500 Body Temperature 98.3 [degF] Mirella Mccracken [facility] Internal Medicine Work Phone: Comment on above: Method: Oral 10-25-2012 11:26-0500 Body weight 73.54 kg Mirella Mccracken [facility] Internal Medicine Work Phone: 10-25-2012 11:26-0500 BP Diastolic 62 mm[Hg] Mirella Mccracken [facility] Internal Medicine Work Phone: Comment on above: Patient Position: Sitting; Cuff Location : Right Arm; Cuff Size: Large 10-25-2012 11:26-0500 BP Systolic 144 mm[Hg] Mirella Mccracken [facility] Internal Medicine Work Phone: Comment on above: Patient Position: Sitting; Cuff Location : Right Arm; Cuff Size: Large 10-25-2012 11:26-0500 BSA (Body Surface Area) 1.69 m2 Mirella Mccracken [facility] Internal Medicine Work Phone: 10-25-2012 11:26-0500 Height 149.86 cm Mirella Mccracken [facility] Internal Medicine Work Phone: 10-25-2012 11:26-0500 Pulse (Heart Rate) 72 /min Mirella Mccracken [facility] Internal Medicine Work Phone: Comment on above: Pattern: Regular 10-25-2012 11:26-0500 Respiratory Rate 20 /min Mirella Mccracken [facility] Internal Medicine Work Phone: Comment on above: Pattern: Unlabored 10-25-2012 11:26-0500 Weight 73.54 kg Mirella Mccracken [facility] Internal Medicine Work Phone: 10-21-2012 09:46-0500 BMI (Body Mass Index) 32.74 kg/m2 Mirella Mccracken [facility] Internal Medicine Work Phone: 10-21-2012 09:46-0500 Body Temperature 97.6 [degF] Mirella Mccracken [facility] Internal Medicine Work Phone: Comment on above: Method: Oral 10-21-2012 09:46-0500 Body weight 73.54 kg Mirella Mccracken [facility] Internal Medicine Work Phone: 10-21-2012 09:46-0500 BP Diastolic 62 mm[Hg] Mirella Mccracken [facility] Internal Medicine Work Phone: Comment on above: Patient Position: Sitting; Cuff Location : Left Arm; Cuff Size: Large 10-21-2012 09:46-0500 BP Systolic 120 mm[Hg] Mirella Mccracken [facility] Internal Medicine Work Phone: Comment on above: Patient Position: Sitting; Cuff Location : Left Arm; Cuff Size: Large 10-21-2012 09:46-0500 BSA (Body Surface Area) 1.69 m2 Mirella Mccracken [facility] Internal Medicine Work Phone: 10-21-2012 09:46-0500 Height 149.86 cm Mirella Mccracken [facility] Internal Medicine Work Phone: 10-21-2012 09:46-0500 Pulse (Heart Rate) 64 /min Mirella Mccracken [facility] Internal Medicine Work Phone: Comment on above: Pattern: Regular 10-21-2012 09:46-0500 Respiratory Rate 20 /min Mirella Mccracken [facility] Internal Medicine Work Phone: Comment on above: Pattern: Unlabored 10-21-2012 09:46-0500 Weight 73.54 kg Mirella Mccracken [facility] Internal Medicine Work Phone: 09-30-2012 09:48-0500 BMI (Body Mass Index) 32.74 kg/m2 Mirella Solano [facility] Internal Medicine Work Phone: 09-30-2012 09:48-0500 Body Temperature 98.2 [degF] Mirella Mccracken [facility] Internal Medicine Work Phone: Comment on above: Method: Oral 09-30-2012 09:48-0500 Body weight 73.54 kg Mirella Mccracken [facility] Internal Medicine Work Phone: 09-30-2012 09:48-0500 BP Diastolic 76 mm[Hg] Mirella Mccracken [facility] Internal Medicine Work Phone: Comment on above: Patient Position: Sitting; Cuff Location : Left Arm; Cuff Size: Standard 09-30-2012 09:48-0500 BP Systolic 122 mm[Hg] Mirella Mccracken [facility] Internal Medicine Work Phone: Comment on above: Patient Position: Sitting; Cuff Location : Left Arm; Cuff Size: Standard 09-30-2012 09:48-0500 BSA (Body Surface Area) 1.69 m2 Mirella Mccracken [facility] Internal Medicine Work Phone: 09-30-2012 09:48-0500 Height 149.86 cm Mirella Mccracken [facility] Internal Medicine Work Phone: 09-30-2012 09:48-0500 Pulse (Heart Rate) 58 /min Mirella Mccracken [facility] Internal Medicine Work Phone: Comment on above: Pattern: Regular 09-30-2012 09:48-0500 Pulse Oximetry 98 % Mirella Mccracken [facility] Internal Medicine Work Phone: Comment on above: Room air 09-30-2012 09:48-0500 Respiratory Rate 16 /min Mirella Mccracken [facility] Internal Medicine Work Phone: Comment on above: Pattern: Unlabored 09-30-2012 09:48-0500 Weight 73.54 kg Mirella Mccracken [facility] Internal Medicine Work Phone: 09-16-2012 09:47-0500 BMI (Body Mass Index) 32.74 kg/m2 Mirella Mccracken [facility] Internal Medicine Work Phone: 09-16-2012 09:47-0500 Body Temperature 97 [degF] Mirella Mccracken [facility] Internal Medicine Work Phone: Comment on above: Method: Oral 09-16-2012 09:47-0500 Body weight 73.54 kg Mirella Mccracken [facility] Internal Medicine Work Phone: 09-16-2012 09:47-0500 BP Diastolic 76 mm[Hg] Mierlla Mccracken [facility] Internal Medicine Work Phone: Comment on above: Patient Position: Sitting; Cuff Location : Left Arm; Cuff Size: Large 09-16-2012 09:47-0500 BP Systolic 128 mm[Hg] Mirella Mccracken [facility] Internal Medicine Work Phone: Comment on above: Patient Position: Sitting; Cuff Location : Left Arm; Cuff Size: Large 09-16-2012 09:47-0500 BSA (Body Surface Area) 1.69 m2 Mirella Mccracken [facility] Internal Medicine Work Phone: 09-16-2012 09:47-0500 Height 149.86 cm Mirella Mccrackne [facility] Internal Medicine Work Phone: 09-16-2012 09:47-0500 Pulse (Heart Rate) 72 /min Mirella Mccracken [facility] Internal Medicine Work Phone: Comment on above: Pattern: Regular 09-16-2012 09:47-0500 Respiratory Rate 18 /min Mirella Mccracken [facility] Internal Medicine Work Phone: Comment on above: Pattern: Unlabored 09-16-2012 09:47-0500 Weight 73.54 kg Mirella Mccracken [facility] Internal Medicine Work Phone: 05-27-2012 09:32-0400 Body Temperature 96.9 [degF] [facility] Work Phone: 03-11-2012 13:42-0400 BMI (Body Mass Index) 28.88 kg/m2 Mirella [facility] Internal Medicine Work Phone: 03-11-2012 13:42-0400 Body Temperature 97.8 [degF] Mirella Mccracken [facility] Internal Medicine Work Phone: 03-11-2012 13:42-0400 Body weight 64.86 kg Mirella Mccracken [facility] Internal Medicine Work Phone: 03-11-2012 13:42-0400 BP Diastolic 70 mm[Hg] Mirella Mccracken [facility] Internal Medicine Work Phone: Comment on above: Patient Position: Sitting; Cuff Location : Left Arm; Cuff Size: Large 03-11-2012 13:42-0400 BP Systolic 124 mm[Hg] Mirella Mccracken [facility] Internal Medicine Work Phone: Comment on above: Patient Position: Sitting; Cuff Location : Left Arm; Cuff Size: Large 03-11-2012 13:42-0400 BSA (Body Surface Area) 1.6 m2 Mirella Mccracken [facility] Internal Medicine Work Phone: 03-11-2012 13:42-0400 Height 149.86 cm Mirella Mccracken [facility] Internal Medicine Work Phone: 03-11-2012 13:42-0400 Pulse (Heart Rate) 56 /min Mirella Mccracken [facility] Internal Medicine Work Phone: Comment on above: Pattern: Regular 03-11-2012 13:42-0400 Respiratory Rate 18 /min Mirella Mccracken [facility] Internal Medicine Work Phone: Comment on above: Pattern: Unlabored 03-11-2012 13:42-0400 Weight 64.86 kg Mirella Mccracken [facility] Internal Medicine Work Phone: 03-04-2012 12:12-0400 BMI (Body Mass Index) 28.96 kg/m2 Mirella Solano [facility] Internal Medicine Work Phone: 03-04-2012 12:12-0400 Body weight 65.03 kg Mirella Mccracken [facility] Internal Medicine Work Phone: 03-04-2012 12:12-0400 BP Diastolic 62 mm[Hg] Mirella Mccracken [facility] Internal Medicine Work Phone: Comment on above: Patient Position: Sitting; Cuff Location : Left Arm; Cuff Size: Large 03-04-2012 12:12-0400 BP Systolic 122 mm[Hg] Mirella Mccracken [facility] Internal Medicine Work Phone: Comment on above: Patient Position: Sitting; Cuff Location : Left Arm; Cuff Size: Large 03-04-2012 12:12-0400 BSA (Body Surface Area) 1.6 m2 Mirella Mccracken [facility] Internal Medicine Work Phone: 03-04-2012 12:12-0400 Height 149.86 cm Mirella Mccracken [facility] Internal Medicine Work Phone: 03-04-2012 12:12-0400 Pulse (Heart Rate) 60 /min Mirella Mccracken [facility] Internal Medicine Work Phone: Comment on above: Pattern: Regular 03-04-2012 12:12-0400 Respiratory Rate 20 /min Mirella Mccracken [facility] Internal Medicine Work Phone: Comment on above: Pattern: Unlabored 03-04-2012 12:12-0400 Weight 65.03 kg Mirella Mccracken [facility] Internal Medicine Work Phone: 02-25-2012 13:29-0400 BMI (Body Mass Index) 28.96 kg/m2 Mirella Mccracken [facility] Internal Medicine Work Phone: 02-25-2012 13:29-0400 Body weight 65.03 kg Mirella Mccracken [facility] Internal Medicine Work Phone: 02-25-2012 13:29-0400 BP Diastolic 76 mm[Hg] Mirella Mccracken [facility] Internal Medicine Work Phone: Comment on above: Patient Position: Sitting; Cuff Location : Left Arm; Cuff Size: Standard 02-25-2012 13:29-0400 BP Systolic 120 mm[Hg] Mirella Mccracken [facility] Internal Medicine Work Phone: Comment on above: Patient Position: Sitting; Cuff Location : Left Arm; Cuff Size: Standard 02-25-2012 13:29-0400 BSA (Body Surface Area) 1.6 m2 Mirella Mccracken [facility] Internal Medicine Work Phone: 02-25-2012 13:29-0400 Height 149.86 cm Mirella Mccracken [facility] Internal Medicine Work Phone: 02-25-2012 13:29-0400 Pulse (Heart Rate) 68 /min Mirella Mccracken [facility] Internal Medicine Work Phone: Comment on above: Pattern: Regular 02-25-2012 13:29-0400 Respiratory Rate 20 /min Mirella Mccracken [facility] Internal Medicine Work Phone: Comment on above: Pattern: Unlabored 02-25-2012 13:29-0400 Weight 65.03 kg Mirella Mccracken [facility] Internal Medicine Work Phone: 01-30-2012 08:19-0400 BMI (Body Mass Index) 28.96 kg/m2 Mirella Mccracken [facility] Internal Medicine Work Phone: 01-30-2012 08:19-0400 Body weight 65.03 kg Mirella Mccracken [facility] Internal Medicine Work Phone: 01-30-2012 08:19-0400 BP Diastolic 70 mm[Hg] [facility] Work [facility]: Comment on above: Patient Position: Sitting; Cuff Location : Left Arm; Cuff Size: Large 01-30-2012 08:19-0400 BP Systolic 120 mm[Hg] [facility] Work [facility]: Comment on above: Patient Position: Sitting; Cuff Location : Left Arm; Cuff Size: Large 01-30-2012 08:19-0400 BSA (Body Surface Area) 1.6 m2 Mirella Mccracken [facility] Internal Medicine Work Phone: 01-30-2012 08:19-0400 Height 149.86 cm Mirella Mccracken [facility] Internal Medicine Work Phone: 01-30-2012 08:19-0400 Pulse (Heart Rate) 60 /min Mirella [facility] Internal Medicine Work Phone: Comment on above: Pattern: Regular 01-30-2012 08:19-0400 Respiratory Rate 18 /min Mirella Mccracken [facility] Internal Medicine Work Phone: Comment on above: Pattern: Unlabored 01-30-2012 08:19-0400 Weight 65.03 kg Mirella Mccracken [facility] Internal Medicine Work Phone: 01-15-2012 12:06-0400 BMI (Body Mass Index) 28.96 kg/m2 Mirella Mccracken [facility] Internal Medicine Work Phone: Comment on above: vison with correction ou=20/50 os=20/50 od=20/50hearing [facility] 01-15-2012 12:06-0400 Body Temperature 97 [degF] [facility] Work [facility]: Comment on above: Method: Oral vison with correctio n ou=20/50 os=20/50 od=20/50hearing [facility] 01-15-2012 12:06-0400 Body weight 65.03 kg [facility] Work Phone: Comment on above: vison with correction ou=20/50 os=20/50 od=20/50hearing [facility] 01-15-2012 12:06-0400 BP Diastolic 60 mm[Hg] Mirella [facility] Internal Medicine Work Phone: Comment on above: Patient Position: Sitting; Cuff Location : Left Arm; Cuff Size: Large vison with correctio n ou=20/50 os=20/50 od=20/50hearing [facility] 01-15-2012 12:06-0400 BP Systolic 118 mm[Hg] [facility] Internal Medicine Work Phone: Comment on above: Patient Position: Sitting; Cuff Location : Left Arm; Cuff Size: Large vison with correctio n ou=20/50 os=20/50 od=20/50hearing [facility] 01-15-2012 12:06-0400 BSA (Body Surface Area) 1.6 m2 [facility] Internal Medicine Work Phone: Comment on above: vison with correction ou=20/50 os=20/50 od=20/50hearing [facility] 01-15-2012 12:06-0400 Height 149.86 cm Mirella [facility] Internal Medicine Work Phone: Comment on above: vison with correction ou=20/50 os=20/50 od=20/50hearing [facility] 01-15-2012 12:06-0400 Pulse (Heart Rate) 68 /min [facility] Internal Medicine Work Phone: Comment on above: Pattern: Regular vison with correctio n ou=20/50 os=20/50 od=20/50hearing [facility] 01-15-2012 12:06-0400 Respiratory Rate 20 /min [facility] Internal Medicine Work Phone: Comment on above: Pattern: Unlabored vison with correctio n ou=20/50 os=20/50 od=20/50hearing [facility] 01-15-2012 12:06-0400 Weight 65.03 kg [facility] Internal Medicine Work Phone: Comment on above: vison with correction ou=20/50 os=20/50 od=20/50hearing [facility] 12-31-2011 15:05-0400 BMI (Body Mass Index) 28.88 kg/m2 Mirellazac Mccracken [facility] Internal Medicine Work Phone: 12-31-2011 15:05-0400 Body weight 64.86 kg [facility] Internal Medicine Work Phone: 12-31-2011 15:05-0400 BP Diastolic 78 mm[Hg] [facility] Internal Medicine Work Phone: Comment on above: Patient Position: Sitting; Cuff Location : Left Arm; Cuff Size: Large 12-31-2011 15:05-0400 BP Systolic 122 mm[Hg] [facility] Internal Medicine Work Phone: Comment on above: Patient Position: Sitting; Cuff Location : Left Arm; Cuff Size: Large 12-31-2011 15:05-0400 BSA (Body Surface Area) 1.6 m2 Mirella Mccracken [facility] Internal Medicine Work Phone: 12-31-2011 15:05-0400 Height 149.86 cm Mirella Mccracken [facility] Internal Medicine Work Phone: 12-31-2011 15:05-0400 Pulse (Heart Rate) 60 /min Mirella Mccracken [facility] Internal Medicine Work Phone: Comment on above: Pattern: Regular 12-31-2011 15:05-0400 Respiratory Rate 18 /min Mirella Mccracken [facility] Internal Medicine Work Phone: Comment on above: Pattern: Unlabored 12-31-2011 15:05-0400 Weight 64.86 kg Mirella Mccracken [facility] Internal Medicine Work Phone: 12-26-2011 14:17-0400 BP Diastolic 62 mm[Hg] Mirella Mccracken [facility] Internal Medicine Work Phone: Comment on above: Patient Position: Sitting; Cuff Location : Left Arm; Cuff Size: Standard 12-26-2011 14:17-0400 BP Systolic 122 mm[Hg] Mirella Mccracken [facility] Internal Medicine Work Phone: Comment on above: Patient Position: Sitting; Cuff Location : Left Arm; Cuff Size: Standard 12-26-2011 14:17-0400 Pulse (Heart Rate) 58 /min Mirella Mccracken [facility] Internal Medicine Work Phone: Comment on above: Pattern: Regular 12-26-2011 14:17-0400 Pulse Oximetry 98 % Mirella Mccracken [facility] Internal Medicine Work Phone: Comment on above: Room air 12-26-2011 13:59-0400 Pulse (Heart Rate) 48 /min Mirella Mccracken [facility] Internal Medicine Work Phone: Comment on above: Pattern: Regular 12-26-2011 13:59-0400 Pulse Oximetry 95 % Mirella Mccracken [facility] Internal Medicine Work Phone: Comment on above: Room air 12-26-2011 13:13-0400 BMI (Body Mass Index) 29.49 kg/m2 Mirella [facility]ccracken [facility] Internal Medicine Work Phone: 12-26-2011 13:130400 Body Temperature 97.8 [degF] Mirella Mccracken [facility] Internal Medicine Work Phone: Comment on above: Method: Oral 12-26-2011 13:130400 Body weight 66.23 kg Mirella Mccracken [facility] Internal Medicine Work Phone: 12-26-2011 13:13-0400 BP Diastolic 68 mm[Hg] Mirella Mccracken [facility] Internal Medicine Work Phone: Comment on above: Patient Position: Sitting; Cuff Location : Left Arm; Cuff Size: Standard 12-26-2011 13:13-0400 BP Systolic 114 mm[Hg] Mirella Mccracken [facility] Internal Medicine Work Phone: Comment on above: Patient Position: Sitting; Cuff Location : Left Arm; Cuff Size: Standard 12-26-2011 13:130400 BSA (Body Surface Area) 1.61 m2 Mirella Mccracken [facility] Internal Medicine Work Phone: 12-26-2011 13:130400 Height 149.86 cm Mirella Mccracken [facility] Internal Medicine Work Phone: 12-26-2011 13:13-0400 Pulse (Heart Rate) 54 /min Mirella Mccracken [facility] Internal Medicine Work Phone: Comment on above: Pattern: Regular 12-26-2011 13:13-0400 Pulse Oximetry 98 % Mirella Mccracken [facility] Internal Medicine Work Phone: Comment on above: Room air 12-26-2011 13:13-0400 Respiratory Rate 20 /min Mirella Mccracken [facility] Internal Medicine Work Phone: Comment on above: Pattern: Unlabored 12-26-2011 13:13-0400 Weight 66.23 kg Mirella Mccracken [facility] Internal Medicine Work Phone: 12-24-2011 14:07-0400 BMI (Body Mass Index) 29.5 kg/m2 Mirella Mccracken [facility] Internal Medicine Work Phone: 12-24-2011 14:07-0400 Body weight 66.25 kg Mirella Mccracken [facility] Internal Medicine Work Phone: 12-24-2011 14:07-0400 BP Diastolic 60 mm[Hg] Mirella Mccracken [facility] Internal Medicine Work Phone: Comment on above: Patient Position: Sitting; Cuff Location : Left Arm; Cuff Size: Large 12-24-2011 14:07-0400 BP Systolic 124 mm[Hg] Mirella Mccracken [facility] Internal Medicine Work Phone: Comment on above: Patient Position: Sitting; Cuff Location : Left Arm; Cuff Size: Large 12-24-2011 14:07-0400 BSA (Body Surface Area) 1.61 m2 Mirella Mccracken [facility] Internal Medicine Work Phone: 12-24-2011 14:07-0400 Height 149.86 cm Mirella Mccracken [facility] Internal Medicine Work Phone: 12-24-2011 14:07-0400 Pulse (Heart Rate) 60 /min Mirella Mccracken [facility] Internal Medicine Work Phone: Comment on above: Pattern: Regular 12-24-2011 14:07-0400 Respiratory Rate 18 /min Mirella Mccracken [facility] Internal Medicine Work Phone: Comment on above: Pattern: Unlabored 12-24-2011 14:07-0400 Weight 66.25 kg Mirella Mccracken [facility] Internal Medicine Work Phone: 12-15-2011 09:30-0400 BMI (Body Mass Index) 29.31 kg/m2 Mirella Mccracken [facility] Internal Medicine Work Phone: 12-15-2011 09:30-0400 Body Temperature 97.9 [degF] Mirella Mccracken [facility] Internal Medicine Work Phone: Comment on above: Method: Oral 12-15-2011 09:30-0400 Body weight 65.83 kg Mirella Mccracken [facility] Internal Medicine Work Phone: 12-15-2011 09:30-0400 BP Diastolic 60 mm[Hg] Mirella Mccracken [facility] Internal Medicine Work Phone: Comment on above: Patient Position: Sitting; Cuff Location : Left Arm; Cuff Size: Large 12-15-2011 09:30-0400 BP Systolic 104 mm[Hg] Mirella Mccracken [facility] Internal Medicine Work Phone: Comment on above: Patient Position: Sitting; Cuff Location : Left Arm; Cuff Size: Large 12-15-2011 09:30-0400 BSA (Body Surface Area) 1.61 m2 Mirella Mccracken [facility] Internal Medicine Work Phone: 12-15-2011 09:30-0400 Height 149.86 cm Mirella Mccracken [facility] Internal Medicine Work Phone: 12-15-2011 09:30-0400 Pulse (Heart Rate) 60 /min Mirella Mccracken [facility] Internal Medicine Work Phone: Comment on above: Pattern: Regular 12-15-2011 09:30-0400 Respiratory Rate 18 /min Mirella Mccracken [facility] Internal Medicine Work Phone: Comment on above: Pattern: Unlabored 12-15-2011 09:30-0400 Weight 65.83 kg Mirella Mccracken [facility] Internal Medicine Work Phone: 11-26-2011 11:36-0400 BMI (Body Mass Index) 29.69 kg/m2 Mirella Mccracken [facility] Internal Medicine Work Phone: 11-26-2011 11:36-0400 Body Temperature 95.6 [degF] Mirella Mccracken [facility] Internal Medicine Work Phone: Comment on above: Method: Oral 11-26-2011 11:36-0400 Body weight 66.68 kg Mirella Mccracken [facility] Internal Medicine Work Phone: 11-26-2011 11:36-0400 BP Diastolic 62 mm[Hg] Mirella Mccracken [facility] Internal Medicine Work Phone: Comment on above: Patient Position: Sitting; Cuff Location : Left Arm; Cuff Size: Large 11-26-2011 11:36-0400 BP Systolic 118 mm[Hg] Mirella Mccracken [facility] Internal Medicine Work Phone: Comment on above: Patient Position: Sitting; Cuff Location : Left Arm; Cuff Size: Large 11-26-2011 11:36-0400 BSA (Body Surface Area) 1.62 m2 Mirella Mccracken [facility] Internal Medicine Work Phone: 11-26-2011 11:36-0400 Height 149.86 cm Mirella Mccracken [facility] Internal Medicine Work Phone: 11-26-2011 11:36-0400 Pulse (Heart Rate) 64 /min Mirella Mccracken [facility] Internal Medicine Work Phone: Comment on above: Pattern: Regular 11-26-2011 11:36-0400 Respiratory Rate 20 /min Mirella Mccracken [facility] Internal Medicine Work Phone: Comment on above: Pattern: Unlabored 11-26-2011 11:36-0400 Weight 66.68 kg Mirella Mccracken [facility] Internal Medicine Work Phone: 11-12-2011 12:55-0500 BMI (Body Mass Index) 30.51 kg/m2 Mirella Mccracken [facility] Internal Medicine Work Phone: 11-12-2011 12:55-0500 Body weight 68.52 kg Mirella Mccracken [facility] Internal Medicine Work Phone: 11-12-2011 12:55-0500 BP Diastolic 60 mm[Hg] [facility]: Comment on above: Patient Position: Sitting; Cuff Location : Left Arm; Cuff Size: Large 11-12-2011 12:55-0500 BP Systolic 112 mm[Hg] [facility] Work [facility]: Comment on above: Patient Position: Sitting; Cuff Location : Left Arm; Cuff Size: Large 11-12-2011 12:55-0500 BSA (Body Surface Area) 1.64 m2 Mirella Mccracken [facility] Internal Medicine Work Phone: 11-12-2011 12:55-0500 Height 149.86 cm Mirella Mccracken [facility] Internal Medicine Work Phone: 11-12-2011 12:55-0500 Pulse (Heart Rate) 68 /min [facility] Work [facility]: Comment on above: Pattern: Regular 11-12-2011 12:55-0500 Respiratory Rate 20 /min Mirlela Mccracken [facility] Internal Medicine Work Phone: Comment on above: Pattern: Unlabored 11-12-2011 12:55-0500 Weight 68.52 kg Mirella Mccracken [facility] Internal Medicine Work Phone: 11-06-2011 12:18-0500 BMI (Body Mass Index) 30.09 kg/m2 Mirella Mccracken [facility] Internal Medicine Work Phone: 11-06-2011 12:18-0500 Body Temperature 98.1 [degF] Mirella Mccracken [facility] Internal Medicine Work Phone: Comment on above: Method: Oral 11-06-2011 12:18-0500 Body weight 67.59 kg Mirella Mccracken [facility] Internal Medicine Work Phone: 11-06-2011 12:18-0500 BP Diastolic 70 mm[Hg] Mirella Mccracken [facility] Internal Medicine Work Phone: Comment on above: Patient Position: Sitting; Cuff Location : Left Arm; Cuff Size: Large 11-06-2011 12:18-0500 BP Systolic 134 mm[Hg] Mirella Mccracken [facility] Internal Medicine Work Phone: Comment on above: Patient Position: Sitting; Cuff Location : Left Arm; Cuff Size: Large 11-06-2011 12:18-0500 BSA (Body Surface Area) 1.63 m2 Mirella Mccracken [facility] Internal Medicine Work Phone: 11-06-2011 12:18-0500 Height 149.86 cm Mirella Mccracken [facility] Internal Medicine Work Phone: 11-06-2011 12:18-0500 Pulse (Heart Rate) 68 /min Mirella Mccracken [facility] Internal Medicine Work Phone: Comment on above: Pattern: Regular 11-06-2011 12:18-0500 Respiratory Rate 20 /min Mirella Mccracken [facility] Internal Medicine Work Phone: Comment on above: Pattern: Unlabored 11-06-2011 12:18-0500 Weight 67.59 kg Mirella Mccracken [facility] Internal Medicine Work Phone: 10-21-2011 13:27-0500 Body Temperature 97.9 [degF] Mirella Mccracken [facility] Internal Medicine Work Phone: 10-21-2011 13:27-0500 Body weight 67.54 kg Mirella Mccracken [facility] Internal Medicine Work Phone: 10-21-2011 13:27-0500 BP Diastolic 92 mm[Hg] Mirella Mccracken [facility] Internal Medicine Work Phone: Comment on above: Patient Position: Sitting; Cuff Location : Left Arm; Cuff Size: Standard 10-21-2011 13:27-0500 BP Systolic 152 mm[Hg] Mirella Mccracken [facility] Internal Medicine Work Phone: Comment on above: Patient Position: Sitting; Cuff Location : Left Arm; Cuff Size: Standard 10-21-2011 13:27-0500 Pulse (Heart Rate) 99 /min Mirella Mccracken [facility] Internal Medicine Work Phone: Comment on above: Pattern: Regular 10-21-2011 13:27-0500 Pulse Oximetry 92 % Mirella Mccracken [facility] Internal Medicine Work Phone: Comment on above: Room air 10-21-2011 13:27-0500 Respiratory Rate 17 /min Mirella Mccracken [facility] Internal Medicine Work Phone: Comment on above: Pattern: Unlabored 10-21-2011 13:27-0500 Weight 67.54 kg Mirella Mccracken [facility] Internal Medicine Work Phone: 06-05-2011 09:34-0400 BMI (Body Mass Index) 30.14 kg/m2 Mirella Mccracken [facility] Internal Medicine Work Phone: 06-05-2011 09:34-0400 Body Temperature 98.5 [degF] Mirella Mccracken [facility] Internal Medicine Work Phone: Comment on above: Method: Oral 06-05-2011 09:34-0400 Body weight 67.7 kg Mirella Mccracken [facility] Internal Medicine Work Phone: 06-05-2011 09:34-0400 BP Diastolic 78 mm[Hg] Mirella Mccracken [facility] Internal Medicine Work Phone: Comment on above: Patient Position: Sitting; Cuff Location : Left Arm; Cuff Size: Large 06-05-2011 09:34-0400 BP Systolic 142 mm[Hg] Mirella Mccracken [facility] Internal Medicine Work Phone: Comment on above: Patient Position: Sitting; Cuff Location : Left Arm; Cuff Size: Large 06-05-2011 09:34-0400 BSA (Body Surface Area) 1.63 m2 Mirella Mccracken [facility] Internal Medicine Work Phone: 06-05-2011 09:34-0400 Height 149.86 cm Mirella Mccracken [facility] Internal Medicine Work Phone: 06-05-2011 09:34-0400 Pulse (Heart Rate) 76 /min Mirella Mccracken [facility] Internal Medicine Work Phone: Comment on above: Pattern: Regular 06-05-2011 09:34-0400 Respiratory Rate 20 /min Mirella Mccracken [facility] Internal Medicine Work Phone: Comment on above: Pattern: Unlabored 06-05-2011 09:34-0400 Weight 67.7 kg Mirella Mccracken [facility] Internal Medicine Work Phone: 05-08-2011 08:10-0400 BMI (Body Mass Index) 28.19 kg/m2 Mirella Mccracken [facility] Internal Medicine Work Phone: 05-08-2011 08:10-0400 Body Temperature 98.7 [degF] Mirella Mccracken [facility] Internal Medicine Work Phone: Comment on above: Method: Oral 05-08-2011 08:10-0400 Body weight 63.31 kg Mirella Mccracken [facility] Internal Medicine Work Phone: 05-08-2011 08:10-0400 BP Diastolic 78 mm[Hg] Mirella Mccracken [facility] Internal Medicine Work Phone: Comment on above: Patient Position: Sitting; Cuff Location : Left Arm; Cuff Size: Standard 05-08-2011 08:10-0400 BP Systolic 142 mm[Hg] Mirella Mccracken [facility] Internal Medicine Work Phone: Comment on above: Patient Position: Sitting; Cuff Location : Left Arm; Cuff Size: Standard 05-08-2011 08:10-0400 BSA (Body Surface Area) 1.58 m2 Mirella Mccracken [facility] Internal Medicine Work Phone: 05-08-2011 08:10-0400 Height 149.86 cm Mirella Mccracken [facility] Internal Medicine Work Phone: 05-08-2011 08:10-0400 Pulse (Heart Rate) 84 /min Mirella Mccracken [facility] Internal Medicine Work Phone: Comment on above: Pattern: Regular 05-08-2011 08:10-0400 Respiratory Rate 17 /min Mirella Mccracken [facility] Internal Medicine Work Phone: 05-08-2011 08:10-0400 Weight 63.31 kg Mirella Mccracken [facility] Internal Medicine Work Phone: 05-07-2011 08:42-0400 BMI (Body Mass Index) 28.19 kg/m2 Mirella Mccracken [facility] Internal Medicine Work Phone: 05-07-2011 08:42-0400 Body Temperature 98 [degF] Mirella Mccracken [facility] Internal Medicine Work Phone: Comment on above: Method: Oral 05-07-2011 08:42-0400 Body weight 63.31 kg Mirella Mccracken [facility] Internal Medicine Work Phone: 05-07-2011 08:42-0400 BP Diastolic 72 mm[Hg] [facility] Work Phone: Comment on above: Patient Position: Sitting; Cuff Location : Left Arm; Cuff Size: Standard 05-07-2011 08:42-0400 BP Systolic 132 mm[Hg] Mirella Mccracken [facility] Internal Medicine Work Phone: Comment on above: Patient Position: Sitting; Cuff Location : Left Arm; Cuff Size: Standard 05-07-2011 08:42-0400 BSA (Body Surface Area) 1.58 m2 Mirella Mccracken [facility] Internal Medicine Work Phone: 05-07-2011 08:42-0400 Height 149.86 cm Mirella Mccracken [facility] Internal Medicine Work Phone: 05-07-2011 08:42-0400 Pulse (Heart Rate) 82 /min Mirella Mccracken [facility] Internal Medicine Work Phone: Comment on above: Pattern: Regular 05-07-2011 08:42-0400 Respiratory Rate 18 /min Mirella Mccracken [facility] Internal Medicine Work Phone: Comment on above: Pattern: Unlabored 05-07-2011 08:42-0400 Weight 63.31 kg Mirella Mccracken [facility] Internal Medicine Work Phone: 05-06-2011 16:25-0400 BP Diastolic 82 mm[Hg] Mirella Mccracken [facility] Internal Medicine Work Phone: Comment on above: Patient Position: Supine; Cuff Location: Right Arm; Cuff Size: Standard 05-06-2011 16:25-0400 BP Systolic 146 mm[Hg] Mirella Mccracken [facility] Internal Medicine Work Phone: Comment on above: Patient Position: Supine; Cuff Location: Right Arm; Cuff Size: Standard 05-06-2011 16:25-0400 Pulse (Heart Rate) 76 /min Mirella Mccracken [facility] Internal Medicine Work Phone: Comment on above: Pattern: Regular 11-06-2010 12:10-0500 BMI (Body Mass Index) 28.19 kg/m2 Mirella Mccracken [facility] Internal Medicine Work Phone: 11-06-2010 12:10-0500 Body Temperature 97.3 [degF] Mirella Mccracken [facility] Internal Medicine Work Phone: Comment on above: Method: Oral 11-06-2010 12:10-0500 Body weight 63.31 kg Mirella Mccracken [facility] Internal Medicine Work Phone: 11-06-2010 12:10-0500 BP Diastolic 82 mm[Hg] [facility] Work Phone: Comment on above: Patient Position: Sitting; Cuff Location : Left Arm; Cuff Size: Standard 11-06-2010 12:10-0500 BP Systolic 144 mm[Hg] Mirella Mccracken [facility] Internal Medicine Work Phone: Comment on above: Patient Position: Sitting; Cuff Location : Left Arm; Cuff Size: Standard 11-06-2010 12:10-0500 BSA (Body Surface Area) 1.58 m2 Mirella Mccracken [facility] Internal Medicine Work Phone: 11-06-2010 12:10-0500 Height 149.86 cm Mirella Mccracken [facility] Internal Medicine Work Phone: 11-06-2010 12:10-0500 Pulse (Heart Rate) 76 /min Mirella Mccracken [facility] Internal Medicine Work Phone: Comment on above: Pattern: Regular 11-06-2010 12:10-0500 Respiratory Rate 18 /min Mirella Mccracken [facility] Internal Medicine Work Phone: Comment on above: Pattern: Unlabored 11-06-2010 12:10-0500 Weight 63.31 kg Mirella Mccracken [facility] Internal Medicine Work Phone: 11-04-2010 09:00-0500 BMI (Body Mass Index) 28.19 kg/m2 Mirella Mccracken [facility] Internal Medicine Work Phone: 11-04-2010 09:00-0500 Body weight 63.31 kg Mirella Mccracken [facility] Internal Medicine Work Phone: 11-04-2010 09:00-0500 BP Diastolic 72 mm[Hg] Mirella Mccracken [facility] Internal Medicine Work Phone: Comment on above: Patient Position: Sitting; Cuff Location : Left Arm; Cuff Size: Standard 11-04-2010 09:00-0500 BP Systolic 122 mm[Hg] [facility] Work Phone: Comment on above: Patient Position: Sitting; Cuff Location : Left Arm; Cuff Size: Standard 11-04-2010 09:00-0500 BSA (Body Surface Area) 1.58 m2 [facility] Work Phone: 11-04-2010 09:00-0500 Height 149.86 cm Mirella Mccracken [facility] Internal Medicine Work Phone: 11-04-2010 09:00-0500 Pulse (Heart Rate) 62 /min Mirella Mccracken [facility] Internal Medicine Work Phone: Comment on above: Pattern: Regular 11-04-2010 09:00-0500 Respiratory Rate 16 /min Mirella Mccracken [facility] Internal Medicine Work Phone: Comment on above: Pattern: Unlabored 11-04-2010 09:00-0500 Weight 63.31 kg Mirella Mccracken [facility] Internal Medicine Work Phone: 10-14-2010 09:31-0500 BMI (Body Mass Index) 28.19 kg/m2 Mirella Mccracken [facility] Internal Medicine Work Phone: 10-14-2010 09:31-0500 Body weight 63.31 kg Mirella Mccracken [facility] Internal Medicine Work Phone: 10-14-2010 09:31-0500 BP Diastolic 70 mm[Hg] Mirella Mccracken [facility] Internal Medicine Work Phone: Comment on above: Patient Position: Sitting; Cuff Location : Left Arm; Cuff Size: Large 10-14-2010 09:31-0500 BP Systolic 132 mm[Hg] Mirella Mccracken [facility] Internal Medicine Work Phone: Comment on above: Patient Position: Sitting; Cuff Location : Left Arm; Cuff Size: Large 10-14-2010 09:31-0500 BSA (Body Surface Area) 1.58 m2 Mirella Mccracken [facility] Internal Medicine Work Phone: 10-14-2010 09:31-0500 Height 149.86 cm Mirella Mccracken [facility] Internal Medicine Work Phone: 10-14-2010 09:31-0500 Pulse (Heart Rate) 72 /min Mirella Mccracken [facility] Internal Medicine Work Phone: Comment on above: Pattern: Regular 10-14-2010 09:31-0500 Respiratory Rate 20 /min Mirella Mccracken [facility] Internal Medicine Work Phone: Comment on above: Pattern: Unlabored 10-14-2010 09:31-0500 Weight 63.31 kg Mirella Mccracken [facility] Internal Medicine Work Phone: 07-17-2010 08:52-0400 BMI (Body Mass Index) 29.73 kg/m2 [facility]ire[facility]ccrack[facility] Work Phone: 07-17-2010 08:52-0400 Body weight 66.76 kg Mirella Mccracken [facility] Internal Medicine Work Phone: 07-17-2010 08:52-0400 BP Diastolic 78 mm[Hg] Mirella Mccracken [facility] Internal Medicine Work Phone: Comment on above: Patient Position: Sitting; Cuff Location : Left Arm; Cuff Size: Large 07-17-2010 08:52-0400 BP Systolic 138 mm[Hg] Mirella Mccracken [facility] Internal Medicine Work Phone: Comment on above: Patient Position: Sitting; Cuff Location : Left Arm; Cuff Size: Large 07-17-2010 08:52-0400 BSA (Body Surface Area) 1.62 m2 Mirella Mccracken [facility] Internal Medicine Work Phone: 07-17-2010 08:52-0400 Height 149.86 cm Mirella Mccracken [facility] Internal Medicine Work Phone: 07-17-2010 08:52-0400 Pulse (Heart Rate) 60 /min Mirella Mccracken [facility] Internal Medicine Work Phone: Comment on above: Pattern: Regular 07-17-2010 08:52-0400 Respiratory Rate 20 /min Mirella Mccracken [facility] Internal Medicine Work Phone: Comment on above: Pattern: Unlabored 07-17-2010 08:52-0400 Weight 66.76 kg Mirella Mccracken [facility] Internal Medicine Work Phone: 06-17-2010 10:04-0400 BMI (Body Mass Index) 29.6 kg/m2 [facility] Work Phone: 06-17-2010 10:04-0400 Body weight 66.48 kg Mirella Mccracken [facility] Internal Medicine Work Phone: 06-17-2010 10:04-0400 BP Diastolic 70 mm[Hg] Mirella Mccracken [facility] Internal Medicine Work Phone: Comment on above: Patient Position: Sitting; Cuff Location : Left Arm; Cuff Size: Large 06-17-2010 10:04-0400 BP Systolic 122 mm[Hg] Mirella Mccracken [facility] Internal Medicine Work Phone: Comment on above: Patient Position: Sitting; Cuff Location : Left Arm; Cuff Size: Large 06-17-2010 10:04-0400 BSA (Body Surface Area) 1.62 m2 Mirella Mccracken [facility] Internal Medicine Work Phone: 06-17-2010 10:04-0400 Height 149.86 cm Mirella Mccracken [facility] Internal Medicine Work Phone: 06-17-2010 10:04-0400 Pulse (Heart Rate) 68 /min Mirella Mccracken [facility] Internal Medicine Work Phone: Comment on above: Pattern: Regular 06-17-2010 10:04-0400 Respiratory Rate 20 /min Mirella Mccracken [facility] Internal Medicine Work Phone: Comment on above: Pattern: Unlabored 06-17-2010 10:04-0400 Weight 66.48 kg Mirella Mccracken [facility] Internal Medicine Work Phone: 01-25-2010 13:25-0400 Body weight 66.91 kg Mirella Mccracken [facility] Internal Medicine Work Phone: 01-25-2010 13:25-0400 BP Diastolic 76 mm[Hg] Mirella Mccracken [facility] Internal Medicine Work Phone: Comment on above: Patient Position: Sitting; Cuff Location : Left Arm; Cuff Size: Standard 01-25-2010 13:25-0400 BP Systolic 132 mm[Hg] Mirella Mccracken [facility] Internal Medicine Work Phone: Comment on above: Patient Position: Sitting; Cuff Location : Left Arm; Cuff Size: Standard 01-25-2010 13:25-0400 Pulse (Heart Rate) 68 /min Mirella Mccracken [facility] Internal Medicine Work Phone: Comment on above: Pattern: Regular 01-25-2010 13:25-0400 Respiratory Rate 18 /min Mirella Mccracken [facility] Internal Medicine Work Phone: Comment on above: Pattern: Unlabored 01-25-2010 13:25-0400 Weight 66.91 kg Mirella Mccracken [facility] Internal Medicine Work Phone: 12-13-2009 11:12-0400 BMI (Body Mass Index) 29.32 kg/m2 Mirella Mccracken [facility] Internal Medicine Work Phone: 12-13-2009 11:12-0400 Body weight 65.86 kg Mirella Mccracken [facility] Internal Medicine Work Phone: 12-13-2009 11:12-0400 BP Diastolic 78 mm[Hg] Mirella Mccracken [facility] Internal Medicine Work Phone: Comment on above: Patient Position: Sitting; Cuff Location : Left Arm; Cuff Size: Large 12-13-2009 11:12-0400 BP Systolic 118 mm[Hg] Mirella Mccracken [facility] Internal Medicine Work Phone: Comment on above: Patient Position: Sitting; Cuff Location : Left Arm; Cuff Size: Large 12-13-2009 11:12-0400 BSA (Body Surface Area) 1.61 m2 Mirella Mccracken [facility] Internal Medicine Work Phone: 12-13-2009 11:12-0400 Height 149.86 cm Mirella Mccracken [facility] Internal Medicine Work Phone: 12-13-2009 11:12-0400 Pulse (Heart Rate) 64 /min Mirella Mccracken [facility] Internal Medicine Work Phone: Comment on above: Pattern: Regular 12-13-2009 11:12-0400 Respiratory Rate 20 /min Mirella Mccracken [facility] Internal Medicine Work Phone: Comment on above: Pattern: Unlabored 12-13-2009 11:12-0400 Weight 65.86 kg Mirella Mccracken [facility] Work Phone: 10-03-2009 11:50-0500 BMI (Body Mass Index) 27.37 kg/m2 Mirella Solano [facility] Internal Medicine Work Phone: 10-03-2009 11:50-0500 Body weight 61.46 kg Mirella Mccracken [facility] Internal Medicine Work Phone: 10-03-2009 11:50-0500 BP Diastolic 78 mm[Hg] Mirella Mccracken [facility] Internal Medicine Work Phone: Comment on above: Patient Position: Sitting; Cuff Location : Left Arm; Cuff Size: Large 10-03-2009 11:50-0500 BP Systolic 120 mm[Hg] Mirella Mccracken [facility] Internal Medicine Work Phone: Comment on above: Patient Position: Sitting; Cuff Location : Left Arm; Cuff Size: Large 10-03-2009 11:50-0500 BSA (Body Surface Area) 1.56 m2 Mirella Mccracken [facility] Internal Medicine Work Phone: 10-03-2009 11:50-0500 Height 149.86 cm Mirella Mccracken [facility] Internal Medicine Work Phone: 10-03-2009 11:50-0500 Pulse (Heart Rate) 64 /min Mirella Mccracken [facility] Internal Medicine Work Phone: Comment on above: Pattern: Regular 10-03-2009 11:50-0500 Respiratory Rate 20 /min Mirella Mccracken [facility] Internal Medicine Work Phone: Comment on above: Pattern: Unlabored 10-03-2009 11:50-0500 Weight 61.46 kg Mirella Mccracken [facility] Internal Medicine Work Phone: 01-17-2009 07:54-0400 BMI (Body Mass Index) 27.37 kg/m2 Mirella Solano [facility] Internal Medicine Work Phone: 01-17-2009 07:54-0400 Body weight 61.46 kg Mirella Mccracken [facility] Internal Medicine Work Phone: 01-17-2009 07:54-0400 BP Diastolic 60 mm[Hg] Mirella Mccracken [facility] Internal Medicine Work Phone: Comment on above: Patient Position: Sitting; Cuff Location : Left Arm; Cuff Size: Large 01-17-2009 07:54-0400 BP Systolic 112 mm[Hg] Mirella Mccracken [facility] Internal Medicine Work Phone: Comment on above: Patient Position: Sitting; Cuff Location : Left Arm; Cuff Size: Large 01-17-2009 07:54-0400 BSA (Body Surface Area) 1.56 m2 Mirella Mccracken [facility] Internal Medicine Work Phone: 01-17-2009 07:54-0400 Head Circumference 0 cm Mirella Mccracken [facility] Internal Medicine Work Phone: 01-17-2009 07:54-0400 Height 149.86 cm Mirella Mccracken [facility] Internal Medicine Work Phone: 01-17-2009 07:54-0400 Pulse (Heart Rate) 64 /min Mirella Mccracken [facility] Internal Medicine Work Phone: Comment on above: Pattern: Regular 01-17-2009 07:54-0400 Respiratory Rate 20 /min Mirella Mccracken [facility] Internal Medicine Work Phone: Comment on above: Pattern: Unlabored 01-17-2009 07:54-0400 Weight 61.46 kg Mirella Mccracken [facility] Internal Medicine Work Phone: 01-12-2009 07:52-0400 BMI (Body Mass Index) 27.37 kg/m2 Mirella Mccracken [facility] Internal Medicine Work Phone: 01-12-2009 07:52-0400 Body weight 61.46 kg Mirella Mccracken [facility] Internal Medicine Work Phone: 01-12-2009 07:52-0400 BP Diastolic 78 mm[Hg] Mirella Mccracken [facility] Internal Medicine Work Phone: Comment on above: Patient Position: Sitting; Cuff Location : Left Arm; Cuff Size: Large 01-12-2009 07:52-0400 BP Systolic 122 mm[Hg] Mirella Mccracken [facility] Internal Medicine Work Phone: Comment on above: Patient Position: Sitting; Cuff Location : Left Arm; Cuff Size: Large 01-12-2009 07:52-0400 BSA (Body Surface Area) 1.56 m2 Mirella Mccracken [facility] Internal Medicine Work Phone: 01-12-2009 07:52-0400 Head Circumference 0 cm Mirella Mccracken [facility] Internal Medicine Work Phone: 01-12-2009 07:52-0400 Height 149.86 cm Mirella Mccracken [facility] Internal Medicine Work Phone: 01-12-2009 07:52-0400 Pulse (Heart Rate) 72 /min Mirella Mccracken [facility] Internal Medicine Work Phone: Comment on above: Pattern: Regular 01-12-2009 07:52-0400 Respiratory Rate 18 /min Mirella Mccracken [facility] Internal Medicine Work Phone: Comment on above: Pattern: Unlabored 01-12-2009 07:52-0400 Weight 61.46 kg Mirella Mccracken [facility] Internal Medicine Work Phone: 01-02-2009 09:31-0400 BMI (Body Mass Index) 27.37 kg/m2 Mirella Mccracken [facility] Internal Medicine Work Phone: 01-02-2009 09:31-0400 Body weight 61.46 kg Mriella Mccracken [facility] Internal Medicine Work Phone: 01-02-2009 09:31-0400 BP Diastolic 78 mm[Hg] [facility] Work Phone: Comment on above: Patient Position: Sitting; Cuff Location : Left Arm; Cuff Size: Large 01-02-2009 09:31-0400 BP Systolic 138 mm[Hg] [facility] Work Phone: Comment on above: Patient Position: Sitting; Cuff Location : Left Arm; Cuff Size: Large 01-02-2009 09:31-0400 BSA (Body Surface Area) 1.56 m2 Mirella Mccracken [facility] Internal Medicine Work Phone: 01-02-2009 09:31-0400 Head Circumference 0 cm [facility] Work Phone: 01-02-2009 09:31-0400 Height 149.86 cm Mirella Mccracken [facility] Internal Medicine Work Phone: 01-02-2009 09:31-0400 Pulse (Heart Rate) 72 /min Mirella Mccracken [facility] Internal Medicine Work Phone: Comment on above: Pattern: Regular 01-02-2009 09:31-0400 Respiratory Rate 20 /min Mirella Mccracken [facility] Internal Medicine Work Phone: Comment on above: Pattern: Unlabored 01-02-2009 09:31-0400 Weight 61.46 kg Mirella Mccracken [facility] Internal Medicine Work Phone: 12-07-2008 09:40-0400 BMI (Body Mass Index) 27.28 kg/m2 Mirella Mccracken [facility] Internal Medicine Work Phone: Comment on above: vision with correction OD= 20/50 OS=20/5 0 OU=20/50 12-07-2008 09:40-0400 Body weight 61.26 kg Mirella Mccracken [facility] Internal Medicine Work Phone: Comment on above: vision with correction OD= 20/50 OS=20/5 0 OU=20/50 12-07-2008 09:40-0400 BP Diastolic 78 mm[Hg] [facility] Work Phone: Comment on above: Patient Position: Sitting; Cuff Location : Left Arm; Cuff Size: Large vision with correcti on OD= 20/50 OS=20/50 OU=20/50 12-07-2008 09:40-0400 BP Systolic 122 mm[Hg] [facility] Work Phone: Comment on above: Patient Position: Sitting; Cuff Location : Left Arm; Cuff Size: Large vision with correcti on OD= 20/50 OS=20/50 OU=20/50 12-07-2008 09:40-0400 BSA (Body Surface Area) 1.56 m2 [facility] Work Phone: Comment on above: vision with correction OD= 20/50 OS=20/5 0 OU=20/50 12-07-2008 09:40-0400 Head Circumference 0 cm [facility] Work Phone: Comment on above: vision with correction OD= 20/50 OS=20/5 0 OU=20/50 12-07-2008 09:40-0400 Height 149.86 cm Mirella [facility] Internal Medicine Work Phone: Comment on above: vision with correction OD= 20/50 OS=20/5 0 OU=20/50 12-07-2008 09:40-0400 Pulse (Heart Rate) 72 /min [facility] Work Phone: Comment on above: Pattern: Regular vision with correcti on OD= 20/50 OS=20/50 OU=20/50 12-07-2008 09:40-0400 Respiratory Rate 20 /min Mirella [facility] Internal Medicine Work Phone: Comment on above: Pattern: Unlabored vision with correcti on OD= 20/50 OS=20/50 OU=20/50 12-07-2008 09:40-0400 Weight 61.26 kg [facility] Work Phone: Comment on above: vision with correction OD= 20/50 OS=20/5 0 OU=20/50 10-04-2008 09:20-0500 BMI (Body Mass Index) 26.31 kg/m2 Mirella Mccracken [facility] Internal Medicine Work Phone: 10-04-2008 09:20-0500 Body weight 59.08 kg [facility] Work Phone: 10-04-2008 09:20-0500 BP Diastolic 76 mm[Hg] Mirella [facility] Internal Medicine Work Phone: Comment on above: Patient Position: Sitting; Cuff Location : Left Arm; Cuff Size: Large 10-04-2008 09:20-0500 BP Systolic 124 mm[Hg] Mirella [facility] Internal Medicine Work Phone: Comment on above: Patient Position: Sitting; Cuff Location : Left Arm; Cuff Size: Large 10-04-2008 09:20-0500 BSA (Body Surface Area) 1.54 m2 Mirella Mccracken [facility] Internal Medicine Work Phone: 10-04-2008 09:20-0500 Head Circumference 0 cm Mirella Mccracken [facility] Internal Medicine Work Phone: 10-04-2008 09:20-0500 Height 149.86 cm [facility] Work Phone: 10-04-2008 09:20-0500 Pulse (Heart Rate) 72 /min [facility] Work Phone: Comment on above: Pattern: Regular 10-04-2008 09:20-0500 Respiratory Rate 20 /min Mirella Mccracken [facility] Internal Medicine Work Phone: Comment on above: Pattern: Unlabored 10-04-2008 09:20-0500 Weight 59.08 kg [facility] Work Phone: 09-21-2008 14:19-0500 BMI (Body Mass Index) 26.9 kg/m2 Mirella Mccracken [facility] Internal Medicine Work Phone: 09-21-2008 14:19-0500 Body weight 60.41 kg [facility] Work Phone: 09-21-2008 14:19-0500 BP Diastolic 80 mm[Hg] [facility] Work Phone: Comment on above: Patient Position: Sitting; Cuff Location : Left Arm; Cuff Size: Standard 09-21-2008 14:19-0500 BP Systolic 142 mm[Hg] [facility] Work Phone: Comment on above: Patient Position: Sitting; Cuff Location : Left Arm; Cuff Size: Standard 09-21-2008 14:19-0500 BSA (Body Surface Area) 1.55 m2 [facility] Work Phone: 09-21-2008 14:19-0500 Head Circumference 0 cm [facility] Work Phone: 09-21-2008 14:19-0500 Height 149.86 cm Mirella Mccracken [facility] Internal Medicine Work Phone: 09-21-2008 14:19-0500 Pulse (Heart Rate) 64 /min Mirella Mccracken [facility] Internal Medicine Work Phone: Comment on above: Pattern: Regular 09-21-2008 14:19-0500 Respiratory Rate 20 /min Mirella Mccracken [facility] Internal Medicine Work Phone: Comment on above: Pattern: Unlabored 09-21-2008 14:19-0500 Weight 60.41 kg Mirella Mccracken [facility] Internal Medicine Work Phone: 08-24-2008 13:56-0500 BMI (Body Mass Index) 26.9 kg/m2 Mirella Mccracken [facility] Internal Medicine Work Phone: 08-24-2008 13:56-0500 Body weight 60.41 kg Mirella Mccracken [facility] Internal Medicine Work Phone: 08-24-2008 13:56-0500 BP Diastolic 88 mm[Hg] Mirella Mccracken [facility] Internal Medicine Work Phone: Comment on above: Patient Position: Sitting; Cuff Location : Left Arm; Cuff Size: Standard 08-24-2008 13:56-0500 BP Systolic 142 mm[Hg] Mirella Mccracken [facility] Internal Medicine Work Phone: Comment on above: Patient Position: Sitting; Cuff Location : Left Arm; Cuff Size: Standard 08-24-2008 13:56-0500 BSA (Body Surface Area) 1.55 m2 Mirella Mccracken [facility] Internal Medicine Work Phone: 08-24-2008 13:56-0500 Head Circumference 0 cm Mirella Mccracken [facility] Internal Medicine Work Phone: 08-24-2008 13:56-0500 Height 149.86 cm Mirella Mccracken [facility] Internal Medicine Work Phone: 08-24-2008 13:56-0500 Pulse (Heart Rate) 80 /min Mirella Mccracken [facility] Internal Medicine Work Phone: Comment on above: Pattern: Regular 08-24-2008 13:56-0500 Respiratory Rate 20 /min Mirella Mccracken [facility] Internal Medicine Work Phone: Comment on above: Pattern: Unlabored 08-24-2008 13:56-0500 Weight 60.41 kg Mirella Mccracken [facility] Internal Medicine Work Phone: 06-28-2008 14:04-0400 BMI (Body Mass Index) 26.93 kg/m2 Mirella Mccracken [facility] Internal Medicine Work Phone: 06-28-2008 14:04-0400 Body weight 60.47 kg Mirella Mccracken [facility] Internal Medicine Work Phone: 06-28-2008 14:04-0400 BP Diastolic 78 mm[Hg] Mirella Mccracken [facility] Internal Medicine Work Phone: Comment on above: Patient Position: Sitting; Cuff Location : Left Arm; Cuff Size: Standard 06-28-2008 14:04-0400 BP Systolic 140 mm[Hg] Mirella Mccracken [facility] Internal Medicine Work Phone: Comment on above: Patient Position: Sitting; Cuff Location : Left Arm; Cuff Size: Standard 06-28-2008 14:04-0400 BSA (Body Surface Area) 1.55 m2 Mirella Mccracken [facility] Internal Medicine Work Phone: 06-28-2008 14:04-0400 Head Circumference 0 cm Mirella Mccracken [facility] Internal Medicine Work Phone: 06-28-2008 14:04-0400 Height 149.86 cm Mirella Mccracken [facility] Internal Medicine Work Phone: 06-28-2008 14:04-0400 Pulse (Heart Rate) 68 /min Mirella Mccracken [facility] Internal Medicine Work Phone: Comment on above: Pattern: Regular 06-28-2008 14:04-0400 Respiratory Rate 16 /min Mirella Mccracken [facility] Internal Medicine Work Phone: Comment on above: Pattern: Unlabored 06-28-2008 14:04-0400 Weight 60.47 kg Mirella Mccracken [facility] Internal Medicine Work Phone: Encounters Encounter Date Encounter Type Care Provider Facility Start: 06-19-2025 ambulatory Jeddenae Butterfieldandreea OLS Fa cility:[facility] Start: 06-03-2025 ambulatory Yesika Faust OLS Fa cility:[facility] Start: 05-22-2025 ambulatory Efky Christiansone OLS Fa cility:[facility] Start: 05-16-2025 ambulatory Yesika Faust OLS Fa cility:[facility] Start: 05-16-2025 Registered Referred Yesika Dolan Start: 04-20-2025 End: 04-20-[address] Yesika Faust MD Work Phone: [facility] Start: 04-20-2025 End: 04-20-2025 Patient encounter procedure Miguel YAETS [facility] Work Phone: Start: 04-14-2025 ambulatory Yesika VICENTE Fa cility:[facility] Start: 04-14-2025 Registered Referred Yesika Dolan Start: 03-20-2025 End: 03-20-[address] Yesika Faust MD Work Phone: [facility] Start: 03-20-2025 End: 03-20-2025 Patient encounter procedure Zeina MEEK -[facility] Work Phone: Start: 03-14-2025 End: 03-14-[address] Yesika Faust MD -[facility] Work Phone: Start: 03-14-2025 End: 03-14-[address] Yesika Faust MD Work Phone: [facility] Start: 03-14-2025 Registered Referred Yesika Dolan Start: 03-06-2025 Registered Referred Yesika Ferreirangton Start: 03-06-2025 End: 03-06-[address] Yesika Faust MD Work Phone: [facility] Start: 03-06-2025 End: 03-06-2025 Patient encounter procedure Zeina FORRESTC [facility] Work Phone: Start: 02-27-2025 ambulatory Yesika VICENTE Fa cility:[facility] Start: 02-27-2025 Registered Referred Yesika Dolan Start: 02-23-2025 End: 02-23-[address] Yesika Faust MD Work Phone: [facility] Start: 02-23-2025 End: 02-23-2025 Patient encounter procedure Miguel YATES [facility] Work Phone: Start: 02-13-2025 ambulatory Yesika VICENTE Fa cility:[facility] Start: 02-13-2025 Registered Referred Yesika Dolan Start: 01-31-2025 End: 01-31-[address] Yesika Faust MD Work Phone: [facility] Start: 01-31-2025 End: 01-31-[address] Yesika Faust MD [facility] Work Phone: Start: 01-23-2025 ambulatory Yesika [place] ty:[facility] Start: 01-23-2025 Registered Referred Zeina Dolan Start: 01-18-2025 End: 01-18-2025 Departed Referred Yesika Dolan Start: 01-18-2025 Registered Referred Yesika Dolan Start: 01-18-2025 End: 01-18-2025 ambulatory Yesika VICENTE Facility:[facility] Start: 01-14-2025 End: 01-14-[address] Yesika Faust MD Work Phone: [facility] Work Phone: Start: 01-14-2025 End: 01-14-2025 Departed Referred Yesika Dolan Start: 01-14-2025 End: 01-14-2025 ambulatory Yesika VICENTE Facility:[facility] Start: 01-12-2025 End: 01-12-[address] Yesika Faust MD Work Phone: [facility] Work Phone: Start: 01-12-2025 End: 01-12-2025 Departed Referred Yesika Dolan Start: 01-12-2025 Registered Referred Yesika Dolan Start: 01-12-2025 End: 01-12-2025 ambulatory Yesika VICENTE Facility:[facility] Start: 12-16-2024 End: 12-16-[address] Yesika Faust MD Work Phone: [facility] Work Phone: Start: 12-16-2024 End: 12-16-2024 [facility] Start: 12-14-2024 End: 12-14-[address] Yesika Faust MD Work Phone: [facility] Work Phone: Start: 12-14-2024 End: 12-14-2024 Departed Referred Yesika Dolan Start: 12-14-2024 Registered Referred Yesika Dolan Start: 12-14-2024 End: 12-14-2024 ambulatory Yesika VICENTE Facility:[facility] Start: 11-15-2024 End: 11-15-2024 ambulatory Efewongbe Olekathiee Facility:[facility] Start: 11-15-2024 End: 11-15-[address] Yesika Faust MD -[facility] Work Phone: Start: 11-14-2024 End: 11-14-[address] Yesika Faust MD Work Phone: [facility] Work Phone: Start: 11-14-2024 End: 11-14-2024 Departed Referred Yesika Dolan Start: 11-14-2024 End: 11-14-2024 ambulatory Efky Christiansone OLS Facility:[facility] Start: 10-27-2024 End: 10-27-2024 ambulatory Efewongmacarena Christiansone Facility:[facility] Start: 10-27-2024 End: 10-27-2024 Patient encounter procedure Miguel YATES -[facility] Work Phone: Start: 10-17-2024 ambulatory Efenriquetadenae Christiansone OLS Fa cility:[facility] Start: 10-17-2024 Registered Referred Yesika Dolan Start: 10-14-2024 ambulatory Efky Christiansone OLS Fa cility:[facility] Start: 10-14-2024 Registered Referred Yesika Dolan Start: 09-20-2024 End: 09-20-2024 ambulatory Efenriquetaongmacarena Christiansone Facility:[facility] Start: 09-20-2024 End: 09-20-[address] Yesika Faust MD -[facility] Work Phone: Start: 09-16-2024 ambulatory Efenriquetadenae Christiansone OLS Fa cility:[facility] Start: 09-16-2024 Registered Referred Yesika Dolan Start: 08-16-2024 End: 08-16-2024 Departed Referred Efky Faust MD -[facility] Start: 08-16-2024 End: 08-16-2024 ambulatory Yesika Christiansone OLS Facility:[facility] Start: 08-09-2024 End: 08-09-2024 ambulatory Yesika Faust Facility:[facility] Start: 08-04-2024 End: 08-04-2024 ambulatory Zeina Esha HEAD ESTHE[employer]ICIAN Facility:[facility] Start: 08-04-2024 End: 08-04-2024 ambulatory Yesika Faust OLS Facility:[facility] Start: 08-02-2024 End: 08-02-2024 ambulatory Yesika Christiansone OLS Facility:[facility] Start: 07-28-2024 End: 07-28-2024 ambulatory Zeina Esha [facility] [employer]HE[employer]IC[facility] Facility:[facility] Start: 07-04-2024 End: 07-04-2024 ambulatory Yesika Faust Facility:[facility] Start: 06-27-2024 End: 06-27-2024 ambulatory Carmen Shaikh Facility:[facility] Start: 12-22-2023 End: 12-22-[address] Cl Tsang Work Phone: [facility] Work Phone: Start: 11-30-2023 End: 11-30-[address] Cl Tsang Work Phone: [facility] Work Phone: Start: 11-17-2023 End: 11-17-[address] Cl Tsang Work Phone: [facility] Work Phone: Start: 11-17-2023 End: 11-17-[address] Cl Tsang Work Phone: [facility] Start: 10-20-2023 End: 10-20-[address] Cl Tsang Work Phone: [facility] Work Phone: Start: 10-08-2023 End: 10-08-[address] Cl Tsang Work Phone: [facility] Work Phone: Start: 08-25-2023 End: 08-25-[address] Cl Tsang Work Phone: [facility] Work Phone: Start: 08-18-2023 End: 08-18-[address] Cl Tsang Work Phone: [facility] Work Phone: Start: 08-18-2023 End: 08-18-[address] Cl Tsang Work Phone: [facility] Start: 06-30-2023 End: 06-30-[address] Cl Tsang Work Phone: [facility] Work Phone: Start: 06-08-2023 End: 06-08-[address] Cl Tsang Work Phone: [facility] Work Phone: Start: 06-04-2023 End: 06-04-[address] Cl Tsang Work Phone: [facility] Work Phone: Start: 05-28-2023 End: 05-28-[address] Cl Tsang Work Phone: [facility] Work Phone: Start: 05-21-2023 End: 05-21-[address] Cl Tsang Work Phone: [facility] Work Phone: Start: 05-19-2023 End: 05-19-[address] Cl Tsang Work Phone: [facility] Start: 05-13-2023 End: 05-13-[address] Cl Tsang Work Phone: [facility] Work Phone: Start: 04-09-2023 End: 04-09-[address] Cl Tsang Work Phone: [facility] Work Phone: Start: 04-07-2023 End: 04-07-[address] Cl Tsang Work Phone: [facility] Work Phone: Start: 02-17-2023 End: 02-17-[address] Cl Tsang Work Phone: [facility] Work Phone: Start: 02-17-2023 End: 02-17-[address] Cl Tsang Work Phone: [facility] Work Phone: Start: 02-17-2023 End: 02-17-[address] Cl Tsang Work Phone: [facility] Start: 02-10-2023 End: 02-10-[address] Cl Tsang Work Phone: [facility] Work Phone: Start: 01-12-2023 End: 01-12-[address] Cl Tsang Work Phone: [facility] Work Phone: Start: 01-12-2023 End: 01-12-[address] Cl Tsang Work Phone: [facility] Start: 12-29-2022 End: 12-29-[address] Cl Tsang Work Phone: [facility] Start: 12-23-2022 End: 12-23-[address] Cl Tsang Work Phone: [facility] Start: 12-05-2022 End: 12-05-[address] Cl Tsang Work Phone: [facility] Start: 11-18-2022 End: 11-18-[address] Cl Tsang Work Phone: [facility] Work Phone: Start: 11-18-2022 End: 11-18-[address] Cl Tsang Work Phone: [facility] Start: 10-28-2022 End: 10-28-[address] Cl Tsang Work Phone: [facility] Start: 10-17-2022 End: 10-17-[address] Cl Tsang Work Phone: [facility] Start: 10-08-2022 End: 10-08-[address] Cl Tsang Work Phone: [facility] Start: 09-01-2022 End: 09-01-[address] Cl Tsang Work Phone: [facility] Start: 08-19-2022 End: 08-19-[address] Cl Tsang Work Phone: [facility] Work Phone: Start: 08-19-2022 End: 08-19-[address] Cl Tsang Work Phone: [facility] Start: 07-29-2022 End: 07-29-[address] Cl Tsang Work Phone: [facility] Start: 05-29-2022 End: 05-30-[address] Cl sTang Work Phone: [facility] Start: 05-20-2022 End: 05-20-[address] Cl Tsang Work Phone: [facility] Work Phone: Start: 05-20-2022 End: 05-20-[address] Cl Tsang Work Phone: [facility] Start: 04-18-2022 End: 04-18-[address] Cl Tsang Work Phone: [facility] Start: 03-07-[address] Cl herrera Work Phone: [facility] Start: 01-13-2022 End: 01-13-[address] Cl Tsang Work Phone: [facility] Start: 11-14-2021 End: 11-14-2021 Patient encounter procedure TRUDY YATES Work Phone: [facility] Start: 11-12-2021 End: 11-12-2021 Departed Referred TRUDY YATES Work Phone: [facility] Start: 09-30-2021 End: 09-30-2021 Patient encounter procedure TRUDY YATES Work Phone: [facility] Start: 05-05-2019 Review Mirella Mccracken Compreh ensive Internal Medicine Start: 05-05-2019 End: 05-05-2019 Office outpatient visit 25 minutes Mirella Mccracken [facility] Start: 03-15-2019 Review Mirella Mccracken Compreh ensive Internal Medicine Start: 03-15-2019 End: 03-15-2019 Office outpatient visit 15 minutes Mirella Mccracken [facility] Start: 01-21-2018 End: 01-21-2018 Office outpatient visit 25 minutes Mirella Mccracken [facility] Start: 11-09-2017 End: 11-09-2017 Office outpatient visit 10 minutes Mirella Mccracken [facility] Start: 10-15-2017 End: [...] 07-02-2016 End: 07-02-2016 Phone Encounter Mirella Sunshine Chief Technologist al Medicine Start: 07-01-2016 End: 07-01-2016 Office outpatient visit 5 minutes Mirella Sunshine Internal Medicine Start: 06-25-2016 End: 06-25-2016 Office outpatient visit 25 minutes Mirella uSnshine Internal Medicine Start: 05-21-2016 End: 05-21-2016 Office [...] End: 08-13-2015 Office outpatient visit 5 minutes iMrella Sunshine Internal Medicine Start: 08-08-2015 End: 08-08-2015 [...] Medicine Start: 05-23-2015 End: 05-23-2015 Annotation/Addendum Mirella Mccracken [facility] Chief Technologist al Medicine Start: 05-23-2015 End: 05-23-2015 Office outpatient visit 5 minutes Mirella Mccracken [facility] Start: 05-16-2015 End: 05-16-2015 Office outpatient visit 5 minutes Mirella Mccracken [facility] Start: 05-09-2015 End: 05-09-2015 Office outpatient visit 5 minutes Mirella Mccracken [facility] Start: 04-26-2015 End: 04-26-2015 Phone Encounter Mirella Sunshine Chief Technologist al Medicine Start: 04-19-2015 End: 04-19-2015 Office [...] 09-11-2014 End: 09-11-2014 Phone Encounter Mirella Sunshine Chief Technologist al Medicine Start: 08-31-2014 End: 08-31-2014 Office outpatient visit 15 minutes Mirella Mccracken [facility] Start: 08-21-2014 End: 08-22-2014 Office outpatient visit 5 minutes Mirella Mccracken [facility] Start: 08-14-2014 End: 08-14-2014 Periodic preventive med est patient 65yrs& older Mirella Sunshine Internal Medicine Start: 07-26-2014 End: 07-26-2014 Office outpatient visit 15 minutes Mirella Mccracken [facility] Start: 07-25-2014 End: 07-25-2014 Office outpatient new 20 minutes Mirella Mccracken [facility] Internal Medicine Start: 07-13-2014 End: 07-14-2014 Office outpatient visit 15 minutes Mirella Mccracken [facility] Internal Medicine Start: 04-17-2014 End: 04-17-2014 Office outpatient visit 15 minutes Mirella Nicole [facility] Internal Medicine Start: 04-13-2014 End: 04-13-2014 Phone Encounter Mirella Mccracken [facility] al Medicine Start: 04-06-2014 End: 04-06-2014 Patient encounter procedure Mirella Mccracken [facility] Internal Medicine Start: 04-06-2014 End: 04-06-2014 Patient encounter procedure Mirella Mccracken [facility] Internal Medicine Start: 12-30-2013 End: 12-30-2013 Patient encounter procedure Mirella Mccracken [facility] Internal Medicine Start: 12-22-2013 End: 12-22-2013 Patient encounter procedure Mirella Mccracken [facility] Internal Medicine Start: 12-01-2013 End: 12-01-2013 Phone Encounter Mirella Mccracken [facility] al Medicine Start: 12-01-2013 End: 12-01-2013 Patient encounter procedure Mirella Mccracken [facility] Internal Medicine Start: 09-23-2013 End: 09-23-2013 Patient encounter procedure Mirella Mccracken [facility] Internal Medicine Start: 09-13-2013 End: 09-13-2013 Phone Encounter Mirella Nicole [facility] al [facility] Start: 08-01-2013 End: 08-01-2013 Patient encounter procedure Mirella Mccracken [facility] Internal Medicine Start: 07-04-2013 End: 07-04-2013 Patient encounter procedure Mirella Mccracken [facility] Internal Medicine Start: 06-27-2013 End: 06-27-2013 Patient encounter procedure Mirella Mccracken [facility] Internal Medicine Start: 06-20-2013 End: 06-20-2013 Patient encounter procedure Mirella Mccracken [facility] Internal Medicine Start: 06-08-2013 End: 06-08-2013 Patient encounter procedure Mirella Mccracken [facility] Internal Medicine Start: 05-20-2013 End: 05-20-2013 Patient encounter procedure Mirella Mccracken [facility] Internal Medicine Start: 04-22-2013 End: 04-22-2013 Patient encounter procedure Mirella Mccracken [facility] Internal Medicine Start: 04-15-2013 End: 04-15-2013 Patient encounter procedure Mirella Mccracken [facility] Internal Medicine Start: 03-31-2013 End: 03-31-2013 Patient encounter procedure Mirella Mccracken [facility] Internal Medicine Start: 02-28-2013 End: 02-28-2013 Patient encounter procedure Mirella Mccracken [facility] Internal Medicine Start: 11-15-2012 End: 11-15-2012 Patient encounter procedure Mirella Mccracken [facility] Internal Medicine Start: 10-25-2012 End: 10-25-2012 Patient encounter procedure Mirella Mccracken [facility] Internal Medicine Start: 10-21-2012 End: 10-21-2012 Patient encounter procedure Mirella Mccracken [facility] Internal Medicine Start: 09-30-2012 End: 09-30-2012 Patient encounter procedure Mirella Mccracken [facility] Internal Medicine Start: 09-30-2012 End: 09-30-2012 Phone Encounter Mirellaleatha Mccracken [facility] Chief Technologist al Medicine Start: 09-16-2012 End: 09-16-2012 Patient encounter procedure Imrellaleatha Mccracken [facility] Internal Medicine Start: 05-27-2012 End: 05-28-2012 Nursing evaluation of patient and report Mirellaleatha Searson [facility] Internal [facility] Start: 03-11-2012 End: 03-11-2012 Patient encounter procedure Mirellaleatha Mccracken [facility] Internal Medicine Start: 03-04-2012 End: 03-05-2012 Patient encounter procedure Mirellaleatha Mccracken [facility] Internal Medicine Start: 02-25-2012 End: 02-25-2012 Patient encounter procedure Mirellaleatha Mccracken [facility] Internal Medicine Start: 02-05-2012 End: 02-05-2012 Phone Encounter Mirellaleatha Mccracken [facility] al Medicine Start: 02-04-2012 End: 02-04-2012 Phone Encounter Mirellaleatha Mccracken [facility] Chief Technologist al Medicine Start: 01-30-2012 End: 01-30-2012 Patient encounter procedure Mirella Mccracken [facility] Internal Medicine Start: 01-15-2012 End: 01-15-2012 Patient encounter procedure Mirellaleatha Mccracken [facility] Internal Medicine Start: 12-31-2011 End: 12-31-2011 Patient encounter procedure Mirellaleatha Mccracken [facility] Internal Medicine Start: 12-26-2011 End: 12-26-2011 Patient encounter procedure Mirellaleatha Mccracken [facility] Internal Medicine Start: 12-24-2011 End: 12-24-2011 Patient encounter procedure Mirella Nicole [facility] Internal Medicine Start: 12-15-2011 End: 12-15-2011 Patient encounter procedure Mirella Nicole [facility] Internal Medicine Start: 11-26-2011 End: 11-26-2011 Patient encounter procedure Mirella Nicole [facility] Internal Medicine Start: 11-12-2011 End: 11-12-2011 Patient encounter procedure Mirella Nicole [facility] Internal Medicine Start: 11-06-2011 End: 11-06-2011 Office outpatient visit 25 minutes Mirella Mccracken [facility] Internal Medicine Start: 10-22-2011 End: 10-22-2011 Annotation/Addendum Mirella Mccracken [facility] Chief Technologist al Medicine Start: 10-21-2011 End: 10-21-2011 Office outpatient visit 25 minutes Mirella Mccracken [facility] Internal Medicine Start: 06-05-2011 End: 06-05-2011 Patient encounter procedure Mirella Nicole [facility] Internal Medicine Start: 05-08-2011 End: 05-08-2011 Patient encounter procedure Mirella Nicole [facility] Internal Medicine Start: 05-07-2011 End: 05-07-2011 Office outpatient visit 15 minutes Mirella Mccracken [facility] Internal Medicine Start: 05-06-2011 End: 05-06-2011 Office outpatient visit 15 minutes Mirella Mccracken [facility] Internal Medicine Start: 11-06-2010 End: 11-06-2010 Office outpatient visit 15 minutes Mirella Mccracken [facility] Internal Medicine Start: 11-04-2010 End: 11-04-2010 Office outpatient visit 15 minutes Mirella Mccracken [facility] Internal Medicine Start: 10-14-2010 End: 10-14-2010 Patient encounter procedure Mirella Mccracken [facility] Internal Medicine Start: 07-17-2010 End: 07-17-2010 Patient encounter procedure Mirella Mccracken [facility] Internal Medicine Start: 06-17-2010 End: 06-17-2010 Patient encounter procedure Mirella Nicole [facility] Internal Medicine Start: 01-25-2010 End: 01-25-2010 Patient encounter procedure Mirella Nicole [facility] Internal Medicine Start: 12-13-2009 End: 12-13-2009 Patient encounter procedure Mirella Mccracken [facility] Internal Medicine Start: 10-03-2009 End: 10-03-2009 Office outpatient visit 10 minutes Mirella Mccracken [facility] Internal Medicine Start: 06-13-2009 End: 06-13-2009 Patient encounter procedure Mirella Mccracken [facility] Internal Medicine Start: 01-17-2009 End: 01-17-2009 Office outpatient visit 15 minutes Mirella Mccracken [facility] Internal Medicine Start: 01-12-2009 End: 01-12-2009 Office outpatient visit 25 minutes Mirella Mccracken [facility] Internal Medicine Start: 01-02-2009 End: 01-02-2009 Patient encounter procedure Mirella Mccracken [facility] Internal Medicine Start: 12-07-2008 End: 12-07-2008 Patient encounter procedure Mirella Mccracken [facility] Internal Medicine Start: 10-04-2008 End: 10-04-2008 Patient encounter procedure Mirella Mccracken [facility] Internal Medicine Start: 09-21-2008 End: 09-21-2008 Office outpatient visit 25 minutes Mirella Mccracken [facility] Internal Medicine Start: 08-24-2008 End: 08-24-2008 Patient encounter procedure Mirella Mccracken [facility] Internal Medicine Start: 06-28-2008 End: 06-28-2008 Patient encounter procedure Mirella Mccracken [facility] Internal Medicine Start: 06-28-2008 End: 06-28-2008 Patient encounter procedure Mirella Mccracken [facility] Internal Medicine Start: 06-26-2008 End: 06-26-2008 Historical Summary Mirella Mccracken [facility] Chief Technologist al Medicine Procedures Date Procedure Procedure Detail [...] 1 View (Portable) Comments: See Note; NOTES: [facility] Imaging Services [address] [place] [address] Chest 1 View (Portable) MR#: [id number] Acct: [id number] Name: AGUSTIN GARCIA Rep #: [id number] : 1940 F 79 From: Antoni Gaviria MD PCP: Mirella Mccracken DO Status: [facility] Study: Chest 1 View (Portable) Date of Exam: 05/27/19 Exam# [id number] Ordering Dr: Satish Gonzales MD STUDY: X-RAY [...] CC: Satish Gonzales MD; Mirella Mccracken DO Automobile Mechanic Apprentice: Signed Mirella Mccracken Start: 05-27-2019 End: 05-27-2019 Shoulder min 2 Views Comments: See Note; NOTES: [facility] Imaging Services [address] [place] [address] Shoulder min 2 Views MR#: [id number] Acct: [id number] Name: AGUSTIN GARCIA Rep #: [id number] : 1940 F 79 From: Antoni Gaviria MD PCP: Mirella Mccracken DO Status: [facility] Study: Shoulder min 2 Views Date of Exam: 05/27/19 Exam# [id number] Ordering Dr: Aury Hyde MD STUDY: X-RAY [...] CC: Aury Hyde MD; Mirella Mccracken DO Automobile Mechanic Apprentice: Signed Mirella Mccracken Start: 05-27-2019 End: 05-27-2019 Operative Report Comments: See Note; NOTES: [facility] Medical Records Department [address] [place] [address] Operative Report 05/27/19 1615 MR#: [id number] Acct: [id number] Name: AGUSTIN GARCIA Rep #: [id number] : 1940 79 From: Uriel Francois MD PCP: Mirella Mccracken DO Status: REG [facility] Y Location: [place] [address] Report of Operation Date of Procedure: 05/27/19 [...] back to the operating room at the [facility] local she was placed in dorsolithotomy position went into the bladder with a 21 [place] rigid cystourethroscope cannulated the left ureteral orifice [...] 05-27-2019 Discharge Instruction Comments: See Note; NOTES: [facility] Medical Records Department [address] [place] [address] Instructions for Home/Discharge Instructions 05/27/19 1614 MR#: [id number] Acct: [id number] Name: AGUSTIN GARCIA Rep #: [id number] : 1940 79 From: Uriel Francois MD PCP: Mirella Mccracken DO Status: [facility] Discharge Diet: Light diet - advance as [...] or 2 Views Comments: See Note; NOTES: [facility] Imaging Services [address] [place] [address] Pelvis 1 or 2 Views MR#: [id number] Acct: [id number] Name: AGUSITN GARCIA Rep #: [id number] : 1940 F 79 From: Antoni Gaviria MD PCP: Mirella Mccracken DO Status: [facility] Study: Pelvis 1 or 2 Views Date of Exam: 05/27/19 Exam# [id number] Ordering Dr: Uriel Francois MD STUDY: X-RAY [...] CC: Uriel Francois MD; Mirella Mccracken DO Automobile Mechanic Apprentice: Signed Mirella Mccracken Start: 05-05-2019 End: 05-05-2019 Abdomen/Pelvis WITH Contrast Comments: See Note; NOTES: [facility] Imaging Services [address] [place] [address] Abdomen/Pelvis WITH Contrast MR#: [id number] Acct: [id number] Name: AGUSTIN GARCIA Rep #: [id number] : 1940 F 79 From: Zoran Reinoso MD PCP: Mirella Mccracken DO Status: REG CLI Study: Abdomen/Pelvis WITH Contrast Date of Exam: 05/05/19 Exam# [id number] Ordering Dr: Mirella Mccracken DO STUDY: CT [...] Service support , CC: Mirella Mccracken DO Automobile Mechanic Apprentice: Signed Mirella Mccracken Work Phone: Start: 03-18-2019 End: 03-18-2019 Pelvic (Non ) Comments: See Note; NOTES: [facility] Imaging Services [address] [place] [address] Pelvic (Non ) MR#: [id number] Acct: [id number] Name: AGUSTIN GARCIA Rep #: [id number] : 1940 F 78 From: Avi Fisher MD PCP: Mirella Mccracken DO Status: REG CLI Study: Pelvic (Non ) Date of Exam: 03/18/19 Exam# [id number] Ordering Dr: Mirella Mccracken DO STUDY: ULTRASOUND [...] Service support , CC: Mirella Mccracken DO Automobile Mechanic Apprentice: Signed Mirella Mccracken Work Phone: Start: 03-15-2019 End: 03-15-2019 Venous Duplex Lower Extremity Comments: See Note; NOTES: [facility] Cardiovascular Services [address] [place] [address] Venous Duplex US, Unilateral 03/15/19 1340 MR#: [id number] Acct: [id number] Name: AGUSTIN GARCIA Rep #: [id number] : 1940 78 From: James Moctezuma MD [...] Dictated: 03/15/19 1340 Date Transcribed: 03/15/19 142 Autom[employer] Mechanic Apprentice: Signed Mirella Mccracken Work Phone: Start: 11-17-2017 End: 11-17-2017 PT D/C Summary (1) Comments: See Note; NOTES: [facility] Physical Therapy [address] [place] [address] Fax REHABILITATION SERVICES DISCHARGE SUMMARY MR#: [id number] Acct: [id number] Name: AGUSTIN GARCIA Rep #: [id number] : 1940 77 From: Chester Christine DPT, [...] please feel free to call me at [phone]. Thank you for the referral of this patient. Sincerely, Chester Christine DPT, OC <Electronically signed by MAKEDA Camarillo DPT, CSCS> 11/17/17 0920 CC: Mirella Mccracken DO EBG Signed Mirella Mccracken Start: 11-13-2017 End: 11-13-2017 Inital Evaluation (1) - PT Comments: See Note; NOTES: [facility] Physical Therapy [facility] [address] [place] [address]. [address] [place] [address] Fax REHABILITATION SERVICES INITIAL EVALUATION MR#: [id number] Acct: [id number] Name: AGUSTIN GARCIA Rep #: [id number] : 1940 77 From: Chester Christine DPT, MAKEDA, CSCS Referring DrSamaria: Mirella Mccracken DO Status: REG [facility] Insurance: MEDICARE PART A B [facility] Patient's Visit Information AGUSTIN GARCIA is [...] to be FAXED BACK to us at [phone] for Medicare purposes. Please let me know [...] Min 2 Views Comments: See Note; NOTES: [facility] Imaging Services [address] [place] [address] Femur Min 2 Views MR#: [id number] Acct: [id number] Name: AGUSTIN GARCIA Rep #: [id number] : 1940 F 77 From: Edward Jha MD PCP: Mirella Mccracken DO Status: REG CLI Study: Femur Min 2 Views Date of Exam: 10/15/17 Exam# [id number] Ordering Dr: Mirella Mccracken DO STUDY: X-RAY [...] Edward Jha MD at 15:48 EST Tel [phone], Service support , CC: Mirella Mccracken DO Automobile Mechanic Apprentice: Signed Mirella Mccracken Work Phone: Start: 10-15-2017 End: 10-15-2017 Hip 2-3 Views with Pelvis Comments: See Note; NOTES: [facility] Imaging Services [address] [place] [address] Hip 2-3 Views with Pelvis MR#: [id number] Acct: [id number] Name: AGUSTIN GARCIA Rep #: [id number] : 1940 F 77 From: Edward Jha MD PCP: Mirella Mccracken DO Status: REG CLI Study: Hip 2-3 Views with Pelvis Date of Exam: 10/15/17 Exam# [id number] Ordering Dr: Mirella Mccracken DO STUDY: X-RAY [...] Edward Jha MD at 15:54 EST Tel [phone], Service support , STUDY: X-RAY - PELVIS [...] Edward Jha MD at 15:55 EST Tel [phone], Service support , CC: Mirella Mccracken DO Automobile Mechanic Apprentice: Signed Mirella Mccracken Work Phone: Start: 06-05-2017 End: 06-05-2017 Follow Up Appt 6 months Jose Vargas MD Start: 06-05-2017 End: 06-05-2017 [facility] Jose Vargas MD Start: 03-26-2017 End: 03-26-2017 Ribs Uni Min 3V w/PA Chest Comments: See Note; NOTES: [facility] Imaging Services [address] [place] [address] Radha 4d Ribs Uni Min 3V w/PA Chest MR#: [id number] Acct: [id number] Name: AGUSTIN GARCIA Rep #: [id number] : 1940 F 76 From: Tomas Pat MD PCP: Mirella Mccracken DO Status: REG CLI Study: Ribs Uni Min 3V w/PA Chest Date of Exam: 03/26/17 Exam# [id number] Ordering Dr: Stephenie Burkett MD STUDY: X-RAY [...] CC: Stephenie Burkett MD; Mirella Mccracken DO Automobile Mechanic Apprentice: Signed Stephenie Burkett Work Phone: Start: 11-13-2016 End: 11-13-2016 Kidney and Bladder Comments: See Note; NOTES: [facility] Imaging Services [address] [place] [address] Verdana 4d Kidney and Bladder MR#: [id number] Acct: [id number] Name: AGUSTIN GARCIA Rep #: [id number] : 1940 F 76 From: Mackenzie Ortega MD PCP: Mirella Mccracken DO Status: REG CLI Study: Kidney and Bladder Date of Exam: 11/13/16 Exam# [id number] Ordering Dr: Uriel Francois MD STUDY: RENAL [...] MD at 16:03 EST , Service support [phone], CC: Uriel Francois MD; Mirella Mccracken DO Automobile Mechanic Apprentice: Signed Mirella Mccracken Start: 11-03-2016 End: 11-03-2016 Follow Up Appt 9 months Zaria Trevino PA-C Work Phone: Start: 11-03-2016 End: 11-03-2016 [facility] Zaria Trevino PA-C Work Phone: Start: 07-07-2016 End: 07-07-2016 Breast Limited Unilateral Comments: See Note; NOTES: [facility] Imaging Services [address] [place] [address] Verdana 4d Breast Limited Unilateral MR#: [id number] Acct: [id number] Name: AGUSTIN GARCIA Rep #: [id number] : 1940 F 76 From: Edward Jha MD PCP: Mirella Mccracken DO Status: REG CLI Study: Breast Limited Unilateral Date of Exam: 07/07/16 Exam# [id number] Ordering Dr: Mirella Mccracken DO STUDY: ULTRASOUND [...] Edward Jha MD at 15:23 EDT Tel [phone], Service support [phone], CC: Mirella Mccracken DO Automobile Mechanic Apprentice: Signed Mirella Mccracken Work Phone: Start: 07-07-2016 End: 07-07-2016 Unilat Rt Diag Digital AND CAD Comments: See Note; NOTES: [facility] Imaging Services [address] [place] [address] Verdana 4d Unilat Rt Diag Digital AND CAD MR#: [id number] Acct: [id number] Name: AGUSTIN GARCIA Rep #: [id number] : 1940 F 76 From: Edward Jha MD PCP: Mirella Mccracken DO Status: REG CLI Study: Unilat Rt Diag Digital AND CAD Date of Exam: 07/07/16 Exam# [id number] Ordering Dr: Mirella Mccracken DO MAMMOGRAPHY - [...] no significant change since the prior study. [facility]/Unilat Rt Diag Digital AND CAD [...] Edward Jha MD at 15:21 EDT Tel [phone], Service support [phone], CC: Mirella Mccracken DO Automobile Mechanic Apprentice: Signed Mirella Mccracken Work Phone: Start: 05-21-2016 End: 05-22-2016 Foot min 3 Views Comments: See Note; NOTES: [facility] Imaging Services [address] [place] [address] Verdana 4d Foot min 3 Views MR#: [id number] Acct: [id number] Name: AGUSTIN GARCIA Rep #: [id number] : 1940 F 76 From: Edward Jha MD PCP: Mirella Mccracken DO Status: REG CLI Study: Foot min 3 Views Date of Exam: 05/21/16 Exam# [id number] Ordering Dr: Mirella Mccracken DO STUDY: X-RAY [...] Edward Jha MD at 9:42 EDT Tel [phone], Service support [phone], CC: Mirella Mccracken DO Automobile Mechanic Apprentice: Signed Mirella Mccracken Work Phone: Start: 05-07-2016 End: 05-07-2016 Follow Up Appt 6 months Jose Vargas MD Start: 05-07-2016 End: 05-07-2016 MMM Jose Vargas MD Start: 01-04-2016 End: 01-04-2016 Ecg routine ecg w/least 12 lds w/i&r [MEASUREMENTS ANALYSIS] Date of Test: 01/04/2016 10:09:41; Heart Rate: 59; IL Interval: 158; QRS: 88; QT Interval: 432; Corrected QT Interval (QTc): 431; P Wave Milton: 32; QRS Wave Milton: 10; T Wave [place]: 47; Blood Pressure: 110/64 [ECG DIAGNOSTIC STATEMENTS] Date of Test: 01/04/2016 10:09:41; Summary: Sinus Bradycardia WITHIN NORMAL LIMITS Mirella Mccracken Work Phone: Comment on above: sinus elin no acute chg Start: 11-29-2015 End: 11-29-2015 Carotid Duplex Ultrasound Comments: See Note; NOTES: [facility] Cardiovascular Services [address] [place] [address] Carotid Duplex Ultrasound 11/20/15 1035 MR#: [id number] Acct: [id number] Name: AGUSTIN GARCIA Rep #: [id number] : 1940 75 From: Miko Cutler MD Attending Dr: Zaria Bustamante Status: REG CLI Ordering Dr: Zaria Bustamante PA Date: 11/20/15 Location: [facility] Sex: F C Admitted: Reason For [...] the left vertebral artery. Procedure Carotid Duplex 39247. The exam was diagnostic. Exam performed in [...] Date Dictated: 11/20/15 1035 Date Transcribed: 11/29/15 5669 Automobile Mechanic Apprentice: Signed Mirella Mccracken Start: 11-13-2015 End: 11-13-2015 Bilat Scrn Digital AND CAD Comments: See Note; NOTES: [facility] Imaging Services [address] [place] [address] Verdana 4d Bilat Scrn Digital AND CAD MR#: [id number] Acct: [id number] Name: AGUSTIN GARCIA Rep #: [id number] : 1940 F 75 From: Edward Jha MD PCP: Mirella Mccracken DO Status: REG CLI Study: Bilat Scrn Digital AND CAD Date of Exam: 11/13/15 Exam# [id number] Ordering Dr: Mirella Mccracken DO MAMMOGRAPHY - [...] delay biopsy of a clinically suspicious abnormality. [id number] Electronically Signed: Edward Jha MD at 14:46 EST Tel [phone], Service support [phone], CC: Mirella Mccracken DO Automobile Mechanic Apprentice: Signed Mirella Mccracken Work Phone: Start: 11-05-2015 [...] Cervical without Contras Comments: See Note; NOTES: [facility] Imaging Services [address] [place] [address] CAT Scan Report MR#: [id number] Acct: [id number] Name: AGUSTIN GARCIA Rep #: [id number] : 1940 F 75 From: Otoniel Tam MD PCP: Mirella Mccracken DO Status: REG CLI Study: Spine Cervical without Contras Date of Exam: 06/07/15 Exam# [id number] Ordering Dr: Louis Tsang STUDY: CT CERVICAL [...] MD at 16:59 EDT , Service support [phone], CC: Mirella Mccracken DO; LOUIS TSANG Automobile Mechanic Apprentice: Signed Mirella Mccracken Start: 05-22-2015 End: 05-23-2015 Spine Lumbar without Contrast Comments: See Note; NOTES: [facility] Imaging Services [address] [place] [address] CAT Scan Report MR#: [id number] Acct: [id number] Name: AGUSTIN GARCIA Rep #: [id number] : 1940 F 75 From: Ruddy Pozo MD PCP: Mirella Mccracken DO Status: REG CLI Study: Spine Lumbar without Contrast Date of Exam: 05/22/15 Exam# [id number] Ordering Dr: Louis Tsang STUDY: CT LUMBAR [...] at 10:05 EDT Tel , Service support [phone], CC: Mirella Mccracken DO; LOUIS TSANG Automobile Mechanic Apprentice: Signed Mirella Mccracken Start: 05-09-2015 End: 05-10-2015 Documentation of current medications Jose Vargas MD Start: 05-09-2015 End: 05-09-2015 Follow Up Appt 6 months Jose Vargas MD Start: 05-09-2015 End: 10-23-2016 Follow Up Appt Other Jose Vargas MD Start: 05-09-2015 End: 05-09-2015 MMM Jose Vargas MD Start: 04-26-2015 End: 04-26-2015 Brain/Head W/WO Contrast Comments: See Note; NOTES: [facility] Imaging Services [address] [place], [place] [id number] CAT Scan Report MR#: [id number] Acct: [id number] Name: AGUSTIN GARCIA Rep #: [id number] : 1940 F 74 From: Edward Jha MD PCP: Mirella Mccracken DO Status: REG CLI Study: Brain/Head W/WO Contrast Date of Exam: 04/26/15 Exam# [id number] Ordering Dr: Mirella Mccracken DO STUDY: CT [...] Edward Jha MD at 12:51 EDT Tel [phone], Service support [phone], CC: Mirella Mccracken DO Automobile Mechanic Apprentice: Signed Mirella Mccracken Work Phone: Start: 10-24-2014 End: 10-24-2014 Breast Complete Unilateral Comments: See Note; NOTES: [facility] Imaging Services [address] [place] [address] Ultrasound Report MR#: [id number] Acct: [id number] Name: AGUSTIN GARCIA Rep #: [id number] : 1940 F 74 From: Edward Jha MD PCP: Mirella Mccracken DO Status: REG CLI Study: Breast Complete Unilateral Date of Exam: 10/24/14 Exam# [id number] Ordering Dr: Mirella Mccracken DO STUDY: ULTRASOUND [...] Edward Jha MD at 11:15 EST Tel [phone], Service support [phone], CC: Mirella Mccracken DO Automobile Mechanic Apprentice: Signed Mirella Mccracken Work Phone: Start: 10-24-2014 End: 10-25-2014 Dexa Bone Density Study (HP) Comments: See Note; NOTES: [facility] Imaging Services [address] [place] [address] Bone Density Report MR#: [id number] Acct: [id number] Name: AGUSTIN GARCIA Rep #: [id number] : 1940 F 74 From: Edward Jha MD PCP: Mirella Mccracken DO Status: [facility] Study: Dexa Bone Density Study (HP) Date of Exam: 10/24/14 Exam# [id number] Ordering Dr: Mirella Mccracken DO STUDY: DUAL [...] Edward Jha MD at 10:14 EST Tel [phone], Service support [phone], CC: Mirella Mccracken DO Automobile Mechanic Apprentice: Signed Mirella Mccracken Work Phone: Start: 10-19-2014 End: 10-20-2014 Bilat Scrn Digital AND CAD Comments: See Note; NOTES: [facility] Imaging Services [address] [place] [address] Breast Imaging Report MR#: [id number] Acct: [id number] Name: AGUSTIN GARCIA Rep #: [id number] : 1940 F 74 From: Edward Jha MD PCP: Mirella Mccracekn DO Status: REG CLI Study: Bilat Scrn Digital AND CAD Date of Exam: 10/19/14 Exam# [id number] Ordering Dr: Mirella Mccracken DO MAMMOGRAPHY - [...] a clinically suspicious abnormality. Electronically Signed: Edward hJa MD at 13:38 EST Tel [phone], Service support [phone], CC: Mirella Mccracken DO Automobile Mechanic Apprentice: Signed Mirella Mccracken Work Phone: Start: 10-10-2014 [...] Brain/Head W/WO Contrast Comments: See Note; NOTES: [facility] Imaging Services [address] [place] [address] CAT Scan Report MR#: [id number] Acct: [id number] Name: AGUSTIN GARCIA Rep #: [id number] : 1940 F 74 From: Audie Hugo MD PCP: Mirella Mccracken DO Status: REG CLI Study: Brain/Head W/WO Contrast Date of Exam: 09/08/14 Exam# [id number] Ordering Dr: Mirella Mccracken DO STUDY: CT [...] To Hugo MD at 8:17 EST Tel [phone], Service support [phone], CC: Mirella Mccracken DO Automobile Mechanic Apprentice: Signed Mirella Mccracken Work Phone: Start: 07-27-2014 End: 07-27-2014 History and Physical Exam Comments: See Note; NOTES: [facility] Medical Records Department [address] [place] [address] History and Physical 07/27/14 0753 MR#: [id number] Acct: [id number] Name: RADHAAGUSTIN M Rep #: [id number] : 1940 74 From: Nella Howard PCP: Mirella Mccracken DO Status: PRE [facility] Location: [facility] DATE OF SERVICE: 07/28/2014 PREOPERATIVE DIAGNOSIS: Painful [...] scheduled to undergo outpatient surgical intervention at [facility] on July 28, 2014. Pedal pulses are easily palpable bilaterally and consent was reviewed, signed and placed in chart. Nella Howard DPM T: NTS JOB: [id number] 07/27/14 1156 <Electronically signed by Nella Howard > Date: Time: Nella Howard CC: Mirella Mccracken DO; Nella Howard DPM Date Dictated: 07/27/14752 Date Transcribed: 07/27/14752 Automobile Mechanic Apprentice: Signed ____ I have re-examined the patient. [...] Chest W/WO Contrast Comments: See Note; NOTES: [facility] Imaging Services [address] [place] [address] CAT Scan Report MR#: [id number] Acct: [id number] Name: AGUSTIN GARCIA Rep #: [id number] : 1940 F 73 From: Edward Jha MD PCP: Status: REG CLI Study: CTA Chest W/WO Contrast Date of Exam: 12/22/13 Exam# [id number] Ordering Dr: Mirella Mccracken DO STUDY: CTA [...] at 13:14 EDT Tel , Service support [phone], CC: Mirella Mccracken DO Automobile Mechanic Apprentice: Signed Mirella Mccracken Work Phone: Start: 12-13-2013 [...] Brain/Head w/wo Contrast Comments: See Note; NOTES: [facility] Imaging Services [address] [place] [address] CAT Scan Report MR#: [id number] Acct: [id number] Name: AGUSTIN GARCIA Rep #: [id number] : 1940 F 73 From: Audie Hugo MD PCP: Status: REG CLI Study: Brain/Head w/wo Contrast Date of Exam: 06/20/13 Exam# [id number] Ordering Dr: Stephenie Burkett MD STUDY: CT [...] June 20, 2013 at 3:17:31 PM EDT [phone] Electronically Signed BW/BW If you are the referring physician and would like to consult with the radiologist who provided this interpretation, please contact To Hugo M.D. at [phone]. If this radiologist is unavailable, you will be directed to another radiologist to assist. If you are a patient with a question regarding this report, please contact your referring physician directly. Professional Interpretation Provided By: [employer], Phone , These documents contain legally protected [...] of these documents. CC: Stephenie Burkett MD Automobile Mechanic Apprentice: Signed Stephenie Burkett Work Phone: Start: 05-04-2013 End: 07-07-2013 *REBECCA Vargas MD Start: 05-04-2013 End: 05-04-2013 Nurse, [...] Abdominal hysterectomy Alyson Dixon Comment on above: 1972 Amputation Alyson Dixon Comment on above: 4TH [...] Alyson richter Comment on above: 1995 Cholecystectomy Alyosn richter Comment on above: 1995 Colonoscopy Alyson [...] Alyson richter Comment on above: with surgery [id number] Kidney Problems Alyson irchter Comment on above: with surgery [id number] Kidney Problems Alyson richter Comment on above: with surgery [id number] Ligation of fallopia n tube Alyson Messenger [...] on above: 09/12/15 Operation on neck Alyson jollyer Comment on above: 09/12/15 Operation on neck Alyson Mess enger Comment on above: 09/12/15 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 Aniat Dioxn Tonsillectomy Alyson sevilla Comment on above: 1944 Tonsillectomy Alyson sevilla Comment on above: 1944 Tonsillectomy Alyson sevilla Comment on above: [address] Cl sevilla Work Phone: Plan of Treatment Date Care Activity Detail Author Start: 05-05-2019 Basic metabolic panel calcium total Metabolic Panel, Basic (10667) [facility] Work Phone: Start: 01-21-2018 Provider Instructions for Treatment [facility] Work Phone: Start: 11-24-2017 End: 11-24-2017 Appointment Appointment [facility] Work Phone: Start: 11-09-2017 Provider [...] stick/tablet reagent auto microscopy URINALYSIS, W/ MICRO (03613) [facility] Work Phone: Start: 05-07-2017 Urine albumin quantitative MICROALBUMIN: CREATININE RATIO (69559) AND (30021) [facility] Work Phone: Start: 12-25-2016 Procedure Education Eprescribed prescriptions (G8553) [facility] Work Phone: Start: 12-25-2016 Provider Instructions for Treatment [facility] Work Phone: Start: 11-03-2016 End: 11-03-2016 Follow Up Appt 9 months Follow Up Appt 9 months [facility] Work Phone: Start: 11-03-2016 End: 11-03-2016 PFM PFM [facility] Work Phone: Start: 09-25-2016 Procedure Education Eprescribed prescriptions (G8553) [facility] Work Phone: Start: 09-25-2016 Provider Instructions for Treatment [facility] Work Phone: Start: 07-02-2016 Lipid panel Lipid Panel (34310) [facility] Work Phone: Start: 06-25-2016 Provider Instructions for Treatment [facility] Work Phone: Start: 05-12-2016 End: 05-11-2015 *Hepatic Function Panel *Hepatic Function Panel [facility] Work Phone: Start: 05-12-2016 End: 05-11-2015 Lipid panel [AGGREGATE] *Lipid Profile CC PCP [facility] Work Phone: Start: 05-07-2016 End: 05-07-2016 Follow Up Appt 6 months Follow Up Appt 6 months [facility] Work Phone: Start: 05-07-2016 End: 05-07-2016 MMM MMM [facility] Work Phone: Start: 01-04-2016 Patient Education Instructions for the Patient Before and After Surgery *: instructions [facility] Work Phone: Start: 01-04-2016 Provider Instructions for Treatment [facility] Work Phone: Start: 11-29-2015 Provider Instructions for Treatment [facility] Work Phone: Start: 11-05-2015 End: 11-05-2015 Carotid duplex Carotid duplex [facility] Work Phone: Start: 11-05-2015 End: 11-05-2015 Follow Up Appt 6 months Follow Up Appt 6 months [facility] Work Phone: Start: 11-05-2015 End: 11-05-2015 Follow Up Appt Other Follow Up Appt Other [facility] Work Phone: Start: 11-05-2015 End: 11-05-2015 PFM PFM [facility] Work Phone: Start: 10-24-2015 Provider Instructions for Treatment [facility] Work Phone: Start: 10-24-2015 Blood occult fecal hgb deter ia qual feces 1-3 FECAL OCCULT- Tubes sent home (82967) [facility] Work Phone: Start: 07-26-2015 Patient Education Anxiety: emotional health [facility] Work Phone: Start: 07-26-2015 Provider Instructions for Treatment [facility] Work Phone: Start: 07-26-2015 25 hydroxy includes fractions if performed CALCIFIDIOL (56710) VIT D 25 [facility] Work Phone: Start: 07-26-2015 Urnls dip stick/tablet reagent auto microscopy URINALYSIS, W/ MICRO (63824) [facility] Work Phone: Start: 07-26-2015 Urine albumin quantitative MICROALBUMIN: CREATININE RATIO (51182) AND (63218) [facility] Work Phone: Start: 07-26-2015 Comprehensive metabolic panel METABOLIC PANEL, COMPREHENSIVE (31128) [facility] Work Phone: Start: 07-26-2015 Blood count complete auto&auto difrntl wbc CBC W/AUTO DIFF WBC (12604) [facility] Work Phone: Start: 07-26-2015 Thyrotropin Qn TSH (34114) [facility] Work Phone: Start: 07-26-2015 Lipid panel LIPID PANEL (17845) [facility] Work Phone: Start: 05-09-2015 End: 05-09-2015 Follow Up Appt 6 months Follow Up Appt 6 months [facility] Work Phone: Start: 05-09-2015 End: 10-23-2016 Follow Up Appt Other Follow Up Appt Other [facility] Work Phone: Start: 05-09-2015 End: 05-09-2015 MMM MMM [facility] Work Phone: Start: 04-26-2015 Culture bct isol&prsmptv id isolate ea urine URINE IBRAHIMA CULTURE-IDENTIFICATN (59974) [facility] Work Phone: Start: 04-19-2015 Procedure Education Eprescribed prescriptions (G8553) [facility] Work Phone: Start: 04-19-2015 Provider Instructions for Treatment [facility] Work Phone: Start: 04-19-2015 Cobalamin (Vitamin B12) mass conc VITAMIN B-12 (CYANOCOBALAMIN) (47736) [facility] Work Phone: Start: 04-19-2015 Urnls dip stick/tablet rgnt auto w/o microscopy URINALYSIS W/O MICRO (04618) [facility] Work Phone: Start: 04-19-2015 Thyrotropin Qn TSH (90479) [facility] Work Phone: Start: 04-19-2015 Urine albumin quantitative MICROALBUMIN: CREATININE RATIO (85064) AND (53089) [facility] Work Phone: Start: 04-19-2015 Comprehensive metabolic panel METABOLIC PANEL, COMPREHENSIVE (54942) [facility] Work Phone: Start: 04-19-2015 Blood count complete auto&auto difrntl wbc CBC W/AUTO DIFF WBC (91965) [facility] Work Phone: Start: 04-19-2015 Lipid panel LIPID PANEL (92861) [facility] Work Phone: Start: 04-19-2015 25 hydroxy includes fractions if performed CALCIFIDIOL (19891) VIT D 25 [facility] Work Phone: Start: 01-11-2015 Provider Instructions for Treatment [facility] Work Phone: Start: 01-11-2015 25 hydroxy includes fractions if performed Vitamin D Hydroxy (18337) [facility] Work Phone: Start: 01-11-2015 Lipid panel LIPID PANEL (23134) [facility] Work Phone: Start: 01-11-2015 Thyrotropin Qn TSH (38279) [facility] Work Phone: Start: 01-11-2015 Urnls dip stick/tablet reagent auto microscopy URINALYSIS, W/ MICRO (94069) [facility] Work Phone: Start: 01-11-2015 Urine albumin quantitative MICROALBUMIN: CREATININE RATIO (32039) AND (03644) [facility] Work Phone: Start: 01-11-2015 Comprehensive metabolic panel METABOLIC PANEL, COMPREHENSIVE (27602) [facility] Work Phone: Start: 01-11-2015 Blood count complete auto&auto difrntl wbc CBC W/AUTO DIFF WBC (35222) [facility] Work Phone: Start: 10-31-2014 [...] Phone: Start: 10-10-2014 End: 10-10-2014 PFM PFM [facility] Work Phone: Start: 10-09-2014 25 hydroxy includes fractions if performed Vitamin D Hydroxy (39288) [facility] Work Phone: Start: 08-31-2014 [...] 6 months Follow Up Appt 6 months [facility] Work Phone: Start: 04-10-2014 End: 04-10-2014 Follow Up BP Check Follow Up BP Check [facility] Work Phone: Start: 04-10-2014 End: 04-10-2014 MMM MMM [facility] Work Phone: Start: 04-06-2014 Procedure Education Eprescribed prescriptions (G8553) [facility] Work Phone: Start: 04-06-2014 Provider Instructions for Treatment [facility] Work Phone: Start: 04-06-2014 Prothrombin time (PT) Coag time (PPP) PT (Prothrobim Time) (06866) [facility] Work Phone: Comment on above: inr Start: 12-30-2013 Provider Instructions for Treatment [facility] Work Phone: Start: 12-13-2013 End: 05-10-2015 *Hepatic Function Panel *Hepatic Function Panel [facility] Work Phone: Start: 12-13-2013 End: 05-10-2015 Lipid panel [AGGREGATE] *Lipid Profile CC PCP [facility] Work Phone: Start: 12-07-2013 End: 12-07-2013 Follow Up Appt Other Follow Up Appt Other [facility] Work Phone: Start: 12-07-2013 End: 12-07-2013 PFM PFM [facility] Work Phone: Start: 12-01-2013 Patient Education Water in diet, brief version [facility] Work Phone: Start: 12-01-2013 Provider Instructions for Treatment [facility] Work Phone: Start: 08-08-2013 End: 08-08-2013 Follow Up Appt 4 months Follow Up Appt 4 months [facility] Work Phone: Start: 08-08-2013 End: 08-08-2013 Follow Up Appt Other Follow Up Appt Other [facility] Work Phone: Start: 08-08-2013 End: 08-08-2013 MMM MMM [facility] Work Phone: Start: 08-08-2013 End: 08-08-2013 PFM PFM [facility] Work Phone: Start: 08-01-2013 Provider Instructions for Treatment [facility] Work Phone: Start: 07-04-2013 Provider Instructions for Treatment [facility] Work Phone: Start: 06-27-2013 Provider Instructions for Treatment [facility] Work Phone: Start: 06-20-2013 Blood count complete auto&auto difrntl wbc CBC, PLATELETS & AUT DIFF (21172) [facility] Work Phone: Start: 06-20-2013 CRP mass conc C-Reactive Protein (67809) [facility] Work Phone: Start: 06-20-2013 Sedimentation rate rbc non-automated Sed Rate Erythrocyte (29289) [facility] Work Phone: Start: 06-20-2013 Creatinine mass conc CREATININE BLOOD (31257) [facility] Work Phone: Start: 06-08-2013 [...] Phone: Start: 04-19-2013 End: 04-20-2013 *BMP *BMP [facility] Work Phone: Start: 04-19-2013 End: 04-20-2013 aPTT *PTT-Partial Thromboplastin Time [facility] Work Phone: Start: 04-19-2013 End: 04-20-2013 CBC W Auto Differential panel - Blood *CBC without Diff [facility] Work Phone: Start: 04-19-2013 End: 04-20-2013 Chest x-ray X-Ray, Chest, PA & Lateral [facility] Work Phone: Start: 04-19-2013 End: 04-20-2013 Coagulation factor induced.INR assay in platelet poor plasma *PT/INR [facility] Work Phone: Start: 04-19-2013 End: 04-19-2013 Electrocardiogram, complete EKG (In office) [facility] Work Phone: Start: 04-19-2013 End: 04-19-2013 Follow Up Appt Other Follow Up Appt Other [facility] Work Phone: Start: 04-18-2013 End: 04-18-2013 Left & Right Heart Cath W/Grafts Left & Right Heart Cath W/Grafts [facility] Work Phone: Start: 04-15-2013 Patient Education Water in diet, brief version [facility] Work Phone: Start: 04-15-2013 Provider Instructions for Treatment [facility] Work Phone: Start: 03-15-2013 End: 03-09-2013 Echocardiography Echocardiogram (complete) [facility] Work Phone: Start: 02-28-2013 Provider Instructions for Treatment [facility] Work Phone: Start: 02-10-2013 End: 02-10-2013 Arterial exam Arterial exam [facility] Work Phone: Start: 02-10-2013 End: 02-10-2013 Electrocardiogram, complete EKG (In office) [facility] Work Phone: Start: 02-10-2013 End: 02-10-2013 Flecainide [Mass/volume] in Serum or Plasma *FLEC Flecainide (Tambocor) 48753 [facility] Work Phone: Start: 02-10-2013 End: 02-10-2013 Follow Up Appt 6 months Follow Up Appt 6 months [facility] Work Phone: Start: 02-10-2013 End: 08-08-2013 Lipid panel [AGGREGATE] *Lipid Profile CC PCP [facility] Work Phone: Start: 02-10-2013 End: 02-10-2013 MMM MMM [facility] Work Phone: Start: 11-15-2012 Provider Instructions for [...] urine URINE IBRAHIMA CULTURE (TY COL COUNT) (79393) [facility] Work Phone: Start: 09-16-2012 Provider Instructions for Treatment Follow up in 1 month [facility] Work Phone: Start: 07-08-2012 End: 04-18-2013 *Hepatic Function Panel *Hepatic Function Panel [facility] Work Phone: Start: 07-08-2012 End: 07-09-2012 Electrocardiogram, complete EKG (In office) [facility] Work Phone: Start: 07-08-2012 End: 07-09-2012 Follow Up Appt 6 months Follow Up Appt 6 months [facility] Work Phone: Start: 07-08-2012 End: 04-18-2013 Lipid [...] 04-18-2013 *Hepatic Function Panel *Hepatic Function Panel [facility] Work Phone: Start: 01-06-2012 End: 01-06-2012 24 hour holter monitor 24 hour holter monitor [facility] Work Phone: Start: 01-06-2012 End: 01-06-2012 Electrocardiogram, complete EKG (In office) [facility] Work Phone: Start: 01-06-2012 End: 01-06-2012 Follow Up Appt 3 months Follow Up Appt 3 months [facility] Work Phone: Start: 01-06-2012 End: 01-06-2012 Follow Up Appt Other Follow Up Appt Other [facility] Work Phone: Start: 01-06-2012 End: 04-18-2013 Lipid panel [AGGREGATE] *Lipid Profile [facility] Work Phone: Start: 12-31-2011 Provider Instructions for Treatment [facility] Work Phone: Start: 12-24-2011 Fibrin dgradj products d-dimer quantitative D-Dimer (83210) [facility] Work Phone: Start: 12-24-2011 Blood count complete automated CBC (AUTO) (90234) [facility] Work Phone: Start: 12-03-2011 Culture bacterial quanttative colony count urine URINE IBRAHIMA CULTURE-TY COL COUNT (66099) [facility] Work Phone: Start: 11-26-2011 Provider Instructions for Treatment [facility] Work Phone: Start: 11-06-2011 Provider Instructions for Treatment Reviewed Diagnostic Tests [facility] Work Phone: Start: 11-04-2011 Renal function panel Renal function Panel (63614) [facility] Work Phone: Start: 10-22-2011 CRP mass conc C-Reactive Protein (18188) [facility] Work Phone: Start: 10-21-2011 Renal function panel Renal function Panel (68925) [facility] Work Phone: Start: 10-21-2011 Provider Instructions for Treatment Follow up in 2 weeks [facility] Work Phone: Start: 10-21-2011 Fibrin dgradj products d-dimer quantitative D-Dimer (25016) [facility] Work Phone: Start: 10-21-2011 Troponin I.cardiac mass conc Troponin I (34417) [facility] Work Phone: Start: 10-21-2011 Creatine kinase mb fraction only CPK MB FRACTION (11310) [facility] Work Phone: Start: 10-21-2011 Creatine kinase total CREATINE KINASE TOTAL (29799) [facility] Work Phone: Start: 10-21-2011 CRP mass conc C-Reactive Protein (68092) [facility] Work Phone: Start: 06-17-2010 Provider Instructions for Treatment [facility] Work Phone: Start: 12-13-2009 Provider Instructions for Treatment [facility] Work Phone: Start: 01-17-2009 Provider Instructions for Treatment [facility] Work Phone: Start: 01-12-2009 Provider Instructions for Treatment *ERGOCALCIFEROL DOSAGE PER SHEWMON [facility] Work Phone: Start: 01-12-2009 Nuclear Ab IF titer (S) CORTES (ANTINUCLEAR ANTIBODY) (42585) [facility] Work Phone: Start: 01-12-2009 Rheumatoid factor quantitative RHEUMATOID FACTOR-QUANT (96191) [facility] Work Phone: Start: 01-12-2009 25 hydroxy includes fractions if performed Vitamin D Hydroxy (93364) [facility] Work Phone: Comment on above: do in 3-4 months Start: 01-02-2009 Provider Instructions for Treatment [facility] Work Phone: Start: 01-02-2009 25 hydroxy includes fractions if performed Vitamin D Hydroxy (67973) [facility] Work Phone: Start: 01-02-2009 1 25 dihydroxy includes fractions if performed VITAMIN D, 1, 25-DIHYDROXY (31357) [facility] Work Phone: Start: 01-02-2009 Thyrotropin Qn TSH (91085) [facility] Work Phone: Start: 01-02-2009 Protein electrophoretic fractj&quantj serum [facility] Work Phone: Start: 01-02-2009 Sedimentation rate rbc non-automated SED RATE ERYTHROCYTE (92832) [facility] Work Phone: Start: 01-02-2009 Phosphate mass conc PHOSPHORUS (15795) [facility] Work Phone: Start: 01-02-2009 Assay of parathormone PARATHORMONE (98157) [facility] Work Phone: Start: 01-02-2009 Hepatic function panel HEPATIC FUNCTION PANEL (39323) [facility] Work Phone: Start: 01-02-2009 Blood count complete automated CBC (AUTO) (56009) [facility] Work Phone: Start: 01-02-2009 Calcium mass conc CALCIUM SERUM (37586) [facility] Work Phone: Start: 01-02-2009 CRP mass conc C-REACTIVE PROTEIN (37233) [facility] Work Phone: Start: 01-02-2009 ALP enzyme act/vol ALKALINE PHOSPHATASE (51620) [facility] Work Phone: Start: 10-04-2008 Provider Instructions for Treatment [facility] Work Phone: Start: 10-04-2008 Lipid panel LIPID PANEL (03461) [facility] Work Phone: Start: 09-21-2008 Patient Education Water in diet, brief version [facility] Work Phone: Start: 09-21-2008 Provider Instructions for Treatment [facility] Work Phone: Start: 08-24-2008 Provider Instructions for Treatment [facility] Work Phone: Start: 06-28-2008 Provider Instructions for Treatment [facility] Work Phone: Patient Education HYPERLIPIDEMIA [facility] Work Phone: [facility] [...] Immunizations Immunization Date Immunization Notes Care Provider [facility] 06-13-2009 influenza, seasonal, injectable Mirella Nicole [facility] Work Phone: Comment on above: Lot #[id number]-left deltoidgiven by:[facility] 06-28-2008 influenza, seasonal, injectable Mirella Nicole [facility] Work Phone: Comment on above: done km 0.5cc given im ;lt arm lot [id number] exp 02-20 Payers Date Payer Category Payer Self-pay [id number] 2024 Unknown [id number] 2024 Unknown [id number] 2016 Unknown [id number] 2004 Medicare [id number] Medicare MEDICARE PART A B [id number] Private Health Insurance [id number] Unknown Unknown [id number] 2.16.840.1.119575.3.579.2.462 Unknown [id number] 2.16.840.1.038436.3.579.2.462 Unknown [id number] 2.16.840.1.024938.3.579.2.462 Unknown [id number] 2..840.1.609644.3.579.2.462 Unknown [id number] 2.840.1.614576.3.579.2.462 Unknown [id number] 2.840.1.105670.3.579.2.462 Unknown [id number] 2..840.1.206732.3.579.2.462 Unknown [id number] 2.840.1.865136.3.579.2.462 Unknown [id number] 2.840.1.441106.3.579.2.462 Unknown [id number] 2.840.1.769152.3.579.2.462 Unknown [id number] 2..840.1.772880.3.579.2.462 Unknown [id number] 2..840.1.290722.3.579.2.462 Unknown [id number] 2.840.1.050446.3.579.2.462 Unknown [id number] 2..840.1.093308.3.579.2.462 Unknown [id number] 2..840.1.924845.3.579.2.462 Unknown [id number] 2.840.1.522758.3.579.2.462 Unknown [id number] 2.16.840.1.031289.3.579.2.462 Unknown [id number] 2.16.840.1.604313.3.579.2.462 Unknown [id number] 2.16.840.1.490044.3.579.2.462 Unknown [id number] 2.16.840.1.275203.3.579.2.462 Unknown [id number] 2.16.840.1.456988.3.579.2.462 Unknown [id number] 2.16.840.1.875812.3.579.2.462 Unknown [id number] 2.16.840.1.505890.3.579.2.462 Unknown [id number] 2.16840.1.591787.3.579.2.462 Unknown [id number] 2.16840.1.930720.3.579.2.462 Unknown [id number] 2.16840.1.154071.3.579.2.462 Unknown [id number] 2.16840.1.337452.3.579.2.462 Unknown [id number] 2.16840.1.687292.3.579.2.462 Unknown [id number] 2.16840.1.100113.3.579.2.462 Unknown [id number] 2.16840.1.942606.3.579.2.462 Unknown [id number] 2.16840.1.162793.3.579.2.462 Unknown [id number] 2.16840.1.154799.3.579.2.462 Unknown [id number] 2.16.840.1.755448.3.579.2.462 Unknown [id number] 2.16840.1.346348.3.579.2.462 Unknown [id number] 2.16.840.1.182181.3.579.2.462 Unknown [id number] 2.16840.1.994729.3.579.2.462 Social History Date Type Detail Facility Caffeine Use Never smoker [facility] Work Phone: Comment on above: 2 per week 3-4 miles QD walking , heterosexua l, celibate Retired Tobacco use: Never smoker. [facility] Work Phone: Start: 09-30-2021 End: 07-09-2023 Tobacco smoking status NHIS Unknown if ever smoked [facility] Start: 06-12-2021 None [facility] Start: 06-12-2021 Homeless [facility] Start: 06-12-2021 Non-smoker [facility] Start: 1940 Sex Assigned At Female [facility] Start: 02-07-2024 End: 03-02-2025 Tobacco smoking status NHIS Never smoked tobacco (finding) [facility] Start: 12-14-2024 End: 01-04-2025 Sex Female (finding) [facility] Medical Equipment Procedure Code Equipment Code [...] Evaluation note No assessment information availa ble [facility] Work Phone: Evaluation note Note Date & Type Note Facility Evaluation note Diagnosis Onset Date Pes anserinus bursitis of left knee noneactive Osteoarthritis of left knee noneactive [facility] Work Phone: Evaluation note Note Date & Type Note Facility Evaluation note Diagnosis Onset Date Pes anserinus bursitis of left knee noneactive Osteoarthritis of left knee noneactive Pes anserinus bursitis of left knee noneactive Osteoarthritis of left knee noneactive [facility] Work Phone: Evaluation note Note Date & Type Note Facility Evaluation note Diagnosis Onset Date Osteoarthritis of left knee noneactive Osteoarthritis of left knee noneactive Osteoarthritis of left knee noneactive Osteoarthritis of left knee noneactive [facility] Work Phone: Reason for referral (narrative) Note Date & Type Note Facility Reason for referral (narrative) No reason for referral information available [facility] Work Phone: Family History No Family [...] for Treatment How to access health informa [employer] online Indication:Coronary artery disease Start:06-Apr-2014 Instruction Type:Patient [...] for Treatment How to access health informa [employer] online Indication:Coronary artery disease Start:06-Apr-2014 Instruction Type:Patient [...] for Treatment How to access health informa [employer] online Indication:Nonsmoker Start:15-Mar-2019 Instruction Type:Patient Education How [...] Yes May 27, 2019 6:37pm Power of Director Of Online Education Yes May 6:37pm Advance Directive Response Recorded Date/ Time Advance Directives Yes May 2:39pm Living Will Yes June 04, 2022 2:39pm Power of Director Of Online Education Yes May 2:39pm Advance Directive Response Recorded Date/ Time Advance Directives Yes July 9:15am Living Will Yes August 01 9:15am Power of Director Of Online Education Yes August 01, 2022 9:15am Advance Directive Response Recorded Date/ Time Advance Directives Yes July 10:15am Living Will Yes August 01 10:15am Power of Director Of Online Education Yes August 01, 2022 10:15am Advance Directive Response Recorded Date/ Time Advance Directives Yes July 09, 2023 8:23am Living Will Yes July 09 8:23am Power of Director Of Online Education Yes July 09, 2023 8:23am Advance Directive Response Recorded Date/ Time Advance Directives Yes July 09, 2023 9:23am Living Will Yes July 09 9:23am Power of Director Of Online Education Yes July 09, 2023 9:23am Advance Directive Response Recorded Date/ Time Advance Directives Yes July 09, 2023 9:23am Advance Directive Response Recorded Date/ Time Advance Directives Yes March 02 6:29pm Chief Complaint and Reason for Visit Chief Complaint Right hip xray DETENTION LABWORK MONTHLY EXAM Chief Complaint DETENTION LABWORK MONTHLY EXAM Chief Complaint DETENTION LABWORK NEW SYMPTOMS/CONCERN LABWORK MONTHLY EXAM Chief Complaint MONTHLY EXAM MONTH EXAM DETENTION LAB WORK LEFT KNEE Rm 5 xray Reason for Visit Pes anserinus bursit is of left knee Osteoarthritis of left knee Chief Complaint DETENTION LAB WOR K LEFT KNEE Rm 5 xray NEW CONCERN/PROBLEM LEFT KNEE room 1 MONTHLY EXAM DETENTION LABWORK MONTHLY Reason for Visit Pes anserinus bursit is of left knee Osteoarthritis of left knee Pes anserinus bursitis of left knee Osteoarthritis of left knee Chief Complaint NEW CONCERN/PROBLEM LEFT KNEE room 1 MONTHLY EXAM DETENTION LABWORK MONTHLY MONTHLY EXAM NEW PROBLEM DETENTION LABWORK Reason for Visit Pes anserinus bursit is of left knee Osteoarthritis of left knee Chief Complaint DETENTION LABWORK MONTHLY EXAM DETENTION LAB WORK MONTHLY EXAM NEW CONCERN left knee Reason for Visit Pes anserinus bursit is of left knee Osteoarthritis of left knee Chief Complaint LEFT KNEE RM 5 LABWORK LEFT KNEE LEFT KNEE LEFT KNEE MONTHLY VISIT MONTHLY EXAM DETENTION LAB WORK Reason for Visit Osteoarthritis of le ft knee Osteoarthritis of left knee Osteoarthritis of left knee Osteoarthritis of left knee Chief Complaint DETENTION LAB WOR K MONTHLY EXAM - MD MONTHLY EXAM DETENTION LAB WORK Chief Complaint MONTHLY EXAM MONTHLY EXAM MD DETENTION LAB WORK MONTHLY EXAM MONTHLY EXAM MD Chief Complaint Admit Date LABWORK August 16, 2024 5 :00am DETENTION LAB WORK September 16, 2024 5:00am MONTHLY EXAM September 20, 2024 7: 33pm LABWORK October 14, 2024 1 :00am DETENTION LAB WORK October 17, 2024 5:00am MONTHLY EXAM October 27, 2024 11:58am LABWORK November 14, 2024 5:00 am Chief Complaint Admit Date DETENTION LAB WORK September 16, 2024 5:00am MONTHLY EXAM September 20, 2024 7: 33pm LABWORK October 14, 2024 1 :00am DETENTION LAB WORK October 17, 2024 5:00am MONTHLY EXAM October 27, 2024 11:58am LABWORK November 14, 2024 5:00 am MONTHLY EXAM November 15, 2024 5:36 pm LABWORK December 14, 2024 5:00 am Chief Complaint Admit Date LABWORK October 14, 2024 1 :00am DETENTION LAB WORK October 17, 2024 5:00am MONTHLY EXAM October 27, 2024 11:58am LABWORK November 14, 2024 5:00 am MONTHLY EXAM November 15, 2024 5:36 pm LABWORK December 14, 2024 5:00 am LABWORK January 14, 2025 8:25am Chief Complaint Admit Date LABWORK October 14, 2024 1 :00am DETENTION LAB WORK October 17, 2024 5:00am MONTHLY EXAM October 27, 2024 11:58am LABWORK November 14, 2024 5:00 am MONTHLY EXAM November 15, 2024 5:36 pm LABWORK December 14, 2024 5:00 am DETENTION LAB WORK January 12, 2025 5:00 am LABWORK January 14, 2025 8:25am LABWORK January 18, 2025 5:00am Chief Complaint Admit Date LABWORK November 14, 2024 5:00 am MONTHLY EXAM November 15, 2024 5:36 pm LABWORK December 14, 2024 5:00 am Monthly Exam December 16, 2024 5:46 pm DETENTION LAB WORK January 12, 2025 5:00 am LABWORK January 14, 2025 8:25am LABWORK January 18, 2025 5:00am DETENTION LAB WORK January 23, 2025 5:0 0am Chief Complaint Admit Date LABWORK December 14, 2024 5:00 am Monthly Exam December 16, 2024 5:46 pm DETENTION LAB WORK January 12, 2025 5:00 am LABWORK January 14, 2025 8:25am LABWORK January 18, 2025 5:00am DETENTION LAB WORK January 23, 2025 5:0 0am MONTHLY EXAM January 31, 2025 4:00p m DETENTION LAB WORK February 13, 2025 5:0 0am LABWORK February 27, 2025 5:00 am Chief Complaint Admit Date LABWORK December 14, 2024 5:00 am Monthly Exam December 16, 2024 5:46 pm DETENTION LAB WORK January 12, 2025 5:00 am LABWORK January 14, 2025 8:25am LABWORK January 18, 2025 5:00am DETENTION LAB WORK January 23, 2025 5:0 0am MONTHLY EXAM January 31, 2025 4:00p m DETENTION LAB WORK February 13, 2025 5:0 0am MONTHLY EXAM February 23, 2025 9:45 am LABWORK February 27, 2025 5:00 am DETENTION LAB WORK March 06, 2025 3: 47pm DETENTION LAB WORK March 14, 2025 5:0 0am Chief Complaint Admit Date LABWORK December 14, 2024 5:00 am Monthly Exam December 16, 2024 5:46 pm DETENTION LAB WORK January 12, 2025 5:00 am LABWORK January 14, 2025 8:25am LABWORK January 18, 2025 5:00am DETENTION LAB WORK January 23, 2025 5:0 0am MONTHLY EXAM January 31, 2025 4:00p m DETENTION LAB WORK February 13, 2025 5:0 0am MONTHLY EXAM February 23, 2025 9:45 am LABWORK February 27, 2025 5:00 am NEW CONCERN March 06, 2025 3:00 pm DETENTION LAB WORK March 06, 2025 3: 47pm DETENTION LAB WORK March 14, 2025 5:0 0am Chief Complaint Admit Date DETENTION LAB WORK January 12, 2025 5:00 am LABWORK January 14, 2025 8:25am LABWORK January 18, 2025 5:00am DETENTION LAB WORK January 23, 2025 5:0 0am MONTHLY EXAM January 31, 2025 4:00p m DETENTION LAB WORK February 13, 2025 5:0 0am MONTHLY EXAM February 23, 2025 9:45 am LABWORK February 27, 2025 5:00 am NEW CONCERN March 06, 2025 3:00 pm DETENTION LAB WORK March 06, 2025 3: 47pm DETENTION LAB WORK March 14, 2025 5:0 0am New Concern March 20, 2025 4:08p m LABWORK April 14, 2025 5:0 0am Chief Complaint Admit Date DETENTION LAB WORK January 12, 2025 5:00 am LABWORK January 14, 2025 8:25am LABWORK January 18, 2025 5:00am DETENTION LAB WORK January 23, 2025 5:0 0am MONTHLY EXAM January 31, 2025 4:00p m DETENTION LAB WORK February 13, 2025 5:0 0am MONTHLY EXAM February 23, 2025 9:45 am LABWORK February 27, 2025 5:00 am NEW CONCERN March 06, 2025 3:00 pm DETENTION LAB WORK March 06, 2025 3: 47pm DETENTION LAB WORK March 14, 2025 5:0 0am Monthly Exam March 14, 2025 10:00 pm New Concern March 20, 2025 4:08p m LABWORK April 14, 2025 5:0 0am Chief Complaint Admit Date LABWORK January 18, 2025 5:00am DETENTION LAB WORK January 23, 2025 5:0 0am MONTHLY EXAM January 31, 2025 4:00p m DETENTION LAB WORK February 13, 2025 5:0 0am MONTHLY EXAM February 23, 2025 9:45 am LABWORK February 27, 2025 5:00 am NEW CONCERN March 06, 2025 3:00 pm DETENTION LAB WORK March 06, 2025 3: 47pm DETENTION LAB WORK March 14, 2025 5:0 0am Monthly Exam March 14, 2025 10:00 pm New Concern March 20, 2025 4:08p m LABWORK April 14, 2025 5:0 0am MONTHLY EXAM April 20, 2025 11: 08am Additional Source Comments INFORMATION SOURCE (unrecogn ized section and content) DATE CREATED AUTHOR 10/03/2019 [facility] ([place]) DATE CREATED AUTHOR AUTHOR'S ORGANIZ ATION [facility] Goals (unrecognized section and content) Goals may [...] MD Primary Care Provider Active Zeina Balbuena HEAD ESTHETICIAN, HEAD ESTHETICIAN-C Attending Provider Active Team Status: Inactive Member [...] 2024 End: December 16, 2024 Zeina Balbuena HEAD ESTHETICIAN, HEAD ESTHETICIAN-C Attending Provider Active Start: December 16, 2024 [...] 2024 End: December 16, 2024 Zeina Balbuena HEAD ESTHETICIAN, HEAD ESTHETICIAN-C Attending Provider Active Start: December 16, 2024 [...] 2025 End: March 06, 2025 Zeina Balbuena NP, HEAD ESTHETICIAN-C Attending Provider Active Start: March 06, 2025 [...] End: March 06, 2025 Zeina Balbuena NP HEAD ESTHETICIAN-C Attending Provider Active Start: March 06, 2025 End: March 06, 2025 Team Status: Inactive Member Role/Relationship Status Dates Dr. Yesika Faust MD Primary Care Provider Active Start: March 20, 2025 End: March 20, 2025 Zeina Balbuena NP HEAD ESTHETICIAN-C Attending Provider Active Start: March 20, 2025 [...] End: March 20, 2025 Zeina Balbuena NP, NP-C Attending Provider Active Start: March 20, 2025 [...] 2025 End: March 06, 2025 Zeina Balbuena HEAD ESTHETICIAN HEAD ESTHETICIAN-C Attending Provider Active Start: March 06, 2025 [...] 2025 End: March 20, 2025 Zeina Balbuena HEAD ESTHETICIAN HEAD ESTHETICIAN-C Attending Provider Active Start: March 20, 2025 [...] BE BASED ON THE PRIMARY CLINICAL RECORDS. [facility] [employer], [facility]. provides no warranty or guarantee of the accuracy or completeness of information in this document.
[2025-06-28 20:36] LABS: Color, Urine Yellow (Yellow); Glucose, Dipstick Normal (Normal); Ketone-Dipstick Negative (Negative); Leukocyte Esterase-Dipstick Negative /ul (Negative); Nitrite-Dipstick Negative (Negative); Occult Blood-Urine 10 /ul (Negative); Protein-Dipstick 15 mg/dl (Negative); Specific Gravity, Urine 1.015 (1.002-1.030); Urine Bilirubin Dipstick Negative (Negative)
[2025-06-28 20:51] LABS: Anion Gap 9 (5-15); BUN 20 mg/dL (4-19); BUN/Creat Ratio 25.4 RATIO (10-20); Calcium,Total 9.4 mg/dL (7.6-11.0); Carbon Dioxide 28.7 mmol/L (21.0-32.0); Chloride 103 mmol/L (98-108); Glucose 129 mg/dL (70-99); Potassium 4.3 mmol/L (3.3-5.1)
[2025-06-28] MEDS: 0.9% Normal Saline (1000mL) 1,000 ML 999 ML IV (20:51)
[2025-06-28 21:23] VITALS: BP 139/89
[2025-06-28 22:02] LABS: Red Blood Cells-Urine 0-5 SEEN /hpf (0-5)
--- NOTE | 2025-06-28 22:06 | ED.RN ---
Pt combative with staff. Throwing objects at staff. Pt noncompliant with staying in bed and was found standing at side of bed. Attempted to de-esculate pt without success. Therefore Pt was medicated for Pt and staff safety.
--- NOTE | 2025-06-28 22:22 | ED.RN ---
Attempted to call son for permission to treat. No answer.
[2025-06-28 23:00] VITALS: BP 129/89; PULSE 65; RESP 18; O2SAT 94
--- NOTE | 2025-06-28 23:19 | ED.RN ---
Report called to [facility].
[2025-06-28 23:29] VITALS: BP 129/89; PULSE 65; RESP 18; TEMP 36.6; O2SAT 94
== END 2025-06-28 23:31 | disposition home or self-care (01) ==
PROVIDERS: Emergency Provider Emergency Medicine; PCP Internal Medicine; Visit Provider Emergency Medicine
DX: R41.0 Disorientation, unspecified (principal); F03.911 Unspecified dementia, unspecified severity, with agitation; Z66 Do not resuscitate; R45.6 Violent behavior
CPT/HCPCS: 80048; 81001; 85025; 96361; 96374; 96375; 96376; 99285; P9612; A4216

== ENCOUNTER → 2025-07-12 05:00 | Outpatient (REF) | payer MEDICARE, MEDICAID, SELFPAY ==
[2025-07-12 08:16] LABS: Hematocrit 41.1 % (37-47); Hemoglobin 13.2 g/dL (12.0-15.0); Mean Corp Hgb Conc 32.1 g/dL (32-36); Mean Corpuscular Volume 96.9 fL (81-99); Mean Platelet Vol. 10.6 fl (6.2-12.0); Platelet Count 265 K/mm3 (150-450); RBC Distribution Width CV 13.1 % (11.6-14.6); RBC Distribution Width SD 46.5 fl (35.1-43.9); Red Blood Count 4.24 M/mm3 (4.2-5.4); White Blood Count 6.7 K/mm3 (4.4-11.0)
[2025-07-12 08:20] LABS: Scan Indicated on CBC? Y/N NO
[2025-07-12 08:37] LABS: Valproic Acid (Depakene) Level 24 ug/mL (50-100)
[2025-07-12 08:57] LABS: AST(SGOT) 16 U/L (<=31); Alanine Aminotransfer ALT/SGPT 8 U/L (<=34); Albumin, Serum 3.7 g/dL (3.4-4.8); Alkaline Phosphatase 108 U/L (35-104); Bilirubin, Direct < 0.08 mg/dL (0.00-0.30); Globulin 2.4 g/dL (2.2-4.2)
== END ==
LOC: OLS.WHLCAR 05:00
PROVIDERS: PCP Internal Medicine; Visit Provider Internal Medicine
DX: I25.10 Atherosclerotic heart disease of native coronary artery without angina pectoris (principal)
CPT/HCPCS: 36415; 80076; 80164; 85027

== ENCOUNTER → 2025-07-17 | Outpatient (REF) | payer MEDICARE, MEDICAID, SELFPAY ==
--- OUTSIDE RECORDS SUMMARY | 2025-07-17 04:20 | XMS RPT_ITS | CCD ---
Author Organization [facility] ion Partnership [facility] Care Team Providers Care Coverstitch Elastic Attacher Name Role Phone Hung Davison Unavailable Unavailable NicoleMirella jiang Unavailable Armando Gutierrez Unavailable [facility] Unavailable Art Curry Unavailable Alba Sargent Unavailable Amita Antoine Unavailable Dick Morris Unavailable [facility] Unavailable Kya Valdivia Unavailable Joe Skinner Unavailable Alyson Dixon Unavailable Unavailable Unavailable Unavailable TRUDY Chambers Attending Provider Dr. Cl Tsang Primary Care Provider MD Cl Tsang Referring Provider Unavailable Dr. Thom Montiel Attending Provider TRUDY Chambers Referring Provider Esha CORK WIRER, CORK WIRER-C Zeina Attending Provider Dr. Cl Williamson Primary Care Provider Dr. Cl Tsang Primary Care Provider Esha CORK WIRER, CORK WIRER-C Zeina Attending Provider Dr. Cl Williamson Primary Care Provider Esha CORK WIRER, CORK WIRER-C Zeina Attending Provider Dr. Cl Williamson Referring Provider TRUDY Chambers Attending Provider [phone] Dr. Thom Montiel Attending Provider Dr. Cl Tsang Primary Care Provider Dr. Cl Tsang Referring Provider TRUDY Chambers Attending Provider [phone] Dr. Thom Montiel Attending Provider Esha CORK WIRER, CORK WIRER-C Zeina Attending Provider Dr. Tomas Humphrey Attending Provider [phone] Dr. Yesika Faust Attending Provider [phone] Dr. Cl Tsang Primary Care Provider Dr. Cl Tsang Referring Provider Dr. Thom Montiel Attending Provider [phone] Cl Tsang Primary Care Provider Esha CORK WIRER, CORK WIRER-Lio Pastrana Attending Provider Dr. Yesika Reed Attending Provider [phone] Dr. Cl Tsang Referring Provider TRUDY Chambers Attending Provider [phone] Dr. Cl Tsang Primary Care Provider Dr. Cl Tsang Referring Provider TRUDY Chambers Attending Provider [phone] Dr. Thom Montiel Attending Provider [phone] Esha CORK WIRER, CORK WIRER-C Zeina Attending Provider Dr. Yesika Reed Attending Provider [phone] Dr. lC Tsang Primary Care Provider Dr. Yesika Faust Attending Provider [phone] TRUDY Parada Attending Provider [phone] Dr. Cl Tsang Primary Care Provider Dr. Yesika Faust Attending Provider [phone] Hawa CORK WIRER-C Carmen Attending Provider [phone] Christianne GE, Dr. [...] Dr. Napoles Attending Provider [phone] Esha CORK WIRER-CZeina Attending Provider [phone] Christianne GE, Dr. Napoles Primary Care Provider Yesika Faust MD Attending Provider Unavaila raffi Balbuena CORK WIRER-CZeina Attending Provider Christianne GE, Dr. Napoles Primary Care Provider Yesika Faust MD Attending Provider Unavailchristian Faust MD, Dr. Napoles Attending Provider [phone] Miguel Parada Attending Provider Christianne GE, Dr. Napoles Primary Care Provider Yesika Faust MD Attending Provider Unavailchristian Balbuena CORK WIRER-CZeina Attending Provider Christianne GE, Dr. Napoles Primary Care Provider Yesika Faust MD Attending Provider Unavaila ble Yesika Negron Attending Unavailjeferson e Yesika Faust Primary Care Unavailable Oleandreea OLS, Yesika Attending Unavailabl e Christianne, Yesika Primary Care Unavailable Oleandreea VICENTE, Efewongbe Attending Unavailabl e Oleghe, Efewongbe Primary Care Unavailable Oleghe, Efewongbe Primary Care Unavailable Zeian Whyte Attending Unavailable Oleghe OLS, Efewongbe Attending Unavailabl e Oleghe, Efewongbe Primary Care Unavailable Oleghe OLS, Efewongbe Attending Unavailabl e Oleghe, Efewongbe Primary Care Unavailable Oleghe OLS, Efewongbe Attending Unavailabl e Oleghe, Efewongbe Primary Care Unavailable Oleghe OLS, Efewongbe Attending Unavailabl e Oleghe, Efewongbe Primary Care Unavailable Oleghe, Efewongbe Attending Unavailable Oleghe, Efewongbe Primary Care Unavailable Oleghe, Efewongbe Primary Care Unavailable Zeina Balbuena Attending Unavailable Oleghe OLS, Efewongbe Attending Unavailabl [...] Care Unavailable Oleghe, Efewongbe Primary Care Unavailable Aric Oneil Attending Unavailable Oleghe OLS, Efewongbe Attending Unavailabl [...] Attending Unavailable Oleghe, Efewongbe Primary Care Unavailable Zeina Balbuena Attending Unavailable Oleghe, Efewongbe Primary Care Unavailable TickZeina quarles Attending Unavailable Oleghe, Efewongbe Primary Care Unavailable Miguel Parada Attending Unavailable Oleghe, Efewongbe Primary Care Unavailable Oleghe, Efewongbe Attending Unavailable Oleghe, Efewongbe Primary Care Unavailable Zeina Balbuena Attending Unavailable Oleghe, Efewongbe Attending Unavailable Oleghe, Efewongbe Primary Care Unavailable Zeina Balbuena Attending Unavailable Oleghe, Efewongbe Primary Care Unavailable Oleghe, Efewongbe Attending Unavailable Oleghe, Efewongbe Primary Care Unavailable Oleghe OLS, Efewongbe Attending Unavailabl e Oleghe, Efewongbe Primary Care Unavailable Oleghe, Efewongbe Primary Care Unavailable Miguel Parada Attending Unavailable Oleghe OLS, Efewongbe Attending Unavailabl e Oleghe, Efewongbe Primary Care Unavailable Oleghe Dr. Yesika GE Primary Care Physician Yesika Faust MD Attending Physician Unavail able Dr. Yesika Faust MD Attending Physician Esha CORK WIRER-CZeina Attending Physician Miguel Parada Attending Physician [phone] Yesika Faust MD Referring Provider Aric Gonzáles MD Attending Physician [phone] Aric Oneil MD Emergency Department Physician Allergies Allergy Classification Reported Allergen(s) Allergy Type Date of Onset Reaction(s) Facility (2 sources) acetaminophen / HYDROcodone; Translations: [VICODIN] allergy to substance 05-08-20 11 [facility] Work Phone: (20 sources) HYDROcodone; Translations: [HYDROCODONE] allergy to substance 12-30-19 12 Other [facility] Work Phone: (1 source) Sulfonamides [...] Drug Allergy [facility] Work Phone: (19 sources) Acetaminophen Drug Allergy 09-01-20 22 Other [facility] (19 sources) Sulfamethoxazole Drug Allergy 09-01-20 22 Other [facility] (1 source) Acetaminophen Drug Allergy 06-28-20 [facility] (1 source) Sulfamethoxazole Drug Allergy 06-28-20 25 [facility] Medications Current Medications Medication Drug Class(es) Dates Sig (Normalized) Sig (Original) acetaminophen 500 mg oral tablet (20 sources) Start: 02-07-2024 take 2 tablets by mouth three times daily Acetaminophen 500 mg tablet Active 1000 mg PO THREE TIMES A DAY February 07, 2024 12:00am Complies with drug therapy Start: 04-09-2023 End: 06-28-2025 take 2 capsules by mouth every four hours as needed for pain Acetaminophen 325 mg capsule Discontinued 650 mg PO Q4H as needed for fever or pain April 09, 2023 12:00am June 28, 2025 8:00pm Start: 04-09-2023 take 325 mg by mouth once Acet aminophen Active 325 MG PO ONCE April 09, 2023 12:00am aspirin 81 mg delayed release oral tablet (20 sources) Nonsteroidal Anti-inflammatory Drug Start: 04-10-2014 take 1 tablet by mouth once daily Aspirin 81 MG tablet Active 81 mg PO DAILY@0800 July 25, 2014 1:00am Complies with drug therapy Start: 12-27-2013 End: 01-26-2014 take 1 tablet [...] TABS One tablet by mouth daily ASPIRIN [id number] Kaelyn Ellis RN Start: 11-12-2011 End: 11-12-2011 ASPIRIN LOW DOSE, 81MG (Oral Tablet Delayed Release) [address] qd for 0 days Quantity: 30 {Tablet_DR} Refills: 0 Ordered: 12-Nov-2011 Mirella Mccracken DO, DO, Kathleen Start : 12-Nov-2011 End : 12-Nov-2011 Discontinued End: 04-12-2012 take 1 tablet by mouth once daily ASPIRIN EC 81 MG TBEC One tablet by mouth daily ASPIRIN [id number] Jose Vargas MD brexpiprazole 1 mg oral tablet (1 source) Atypical Antipsychotic Start: 06-28-2025 take 1 tablet by mouth once daily Brexpiprazole (Brexpiprazole 1 Mg Tablet) 1 mg tablet Active 1 mg PO DAILY June 28, 2025 12:00am Complies with drug therapy diclofenac sodium 0.01 mg/mg topical gel (20 sources) Nonsteroidal Anti-inflammatory Drug Start: 09-30-2021 apply 4 g topically twice daily Diclofenac Sodium 1 % gel Active 4 g TOPICAL TWICE A DAY September 30, 2021 1:00am apply to single elbow, wrist or hand; for hand includes palm/fingers/back of hand Complies with drug therapy Start: 09-30-2021 apply 2 g topically once Diclo fenac Sodium Active 2 GM TOPICAL ONCE September 30, 2021 1:00am apply to single elbow, wrist or hand; for hand includes palm/fingers/back of hand docusate sodium 50 mg / sennosides, halfway 8.6 mg oral tablet (12 sources) Start: 02-07-2024 Sennosides-Doc usate Sodium (Senexon-S) 8.6-50 mg tablet Active 2 NMA PO AT BEDTIME February 07, 2024 12:00am Complies with drug therapy donepezil hydrochloride 10 mg oral tablet (20 sources) Start: 02-07-2024 take 1 tablet by mouth at bedtime Donepezil 10 mg tablet Active 10 mg PO AT BEDTIME February 07, 2024 12:00am Complies with drug therapy Start: 04-09-2023 End: 02-07-2024 take 1 tablet by mouth at bedtime Donepezil 5 mg tablet Discontinued 5 mg PO AT BEDTIME April 09, 2023 12:00am February 07, 2024 3:28am DULoxetine 60 mg delayed release oral capsule (20 sources) Serotonin and Norepinephrine Reuptake Inhibitor Start: 02-07-2024 take 1 capsule by mouth once daily Duloxetine 60 mg capsule,delayed release(DR/EC) Active 60 mg PO DAILY February 07, 2024 12:00am Complies with drug therapy Start: 02-07-2024 End: 06-28-2025 take 1 capsule by mouth at bedtime Duloxetine 30 mg capsule,delayed release(DR/EC) Discontinued 30 mg PO AT BEDTIME February 07, 2024 12:00am June 28, 2025 8:00pm Start: 12-01-2013 End: 12-01-2013 CYMBALTA, 30MG (Oral [...] One tablet by mouth daily DULOXETINE HCL [id number] Jose Vargas MD Comment on above: substitute generic p lease LORazepam 1 mg oral tablet (20 sources) Benzodiazepine Start: 07-05-2025 take 1 tablet by mouth once daily Start: 06-29-2025 take 1 tablet by jeffry th twice daily Start: 06-29-2025 End: 07-05-2025 take 1 tablet by mouth once daily Lorazepam 1 mg tablet Discontinued 1 mg PO daily 30 30 0 June 29, 2025 12:00am July 28, 2025 1:00am July 05, 2025 11:09am dementia with behaviors Start: 05-25-2025 End: 06-29-2025 take 1 tablet by mouth three times daily Lorazepam 0.5 mg tablet Discontinued 0.5 mg PO THREE TIMES A DAY 90 30 0 June 26, 2025 12:30pm July 25, 2025 1:00am June 29, 2025 9:27am agitation Start: 01-27-2025 End: 05-19-2025 take 1 tablet by mouth three times daily Lorazepam 0.5 mg tablet Discontinued 0.5 mg PO THREE TIMES A DAY 90 30 0 April 19, 2025 12:28pm May 18, 2025 12:00am May 19, 2025 12:07am agitation Start: 08-22-2024 End: 01-25-2025 take 1 [...] above: thirty melatonin 3 mg oral capsule (16 sources) Start: 04-09-2023 take 1 capsule by mouth at bedtime Melatonin 3 mg capsule Active 3 mg PO BEDTIME April 09, 2023 12:00am Complies with drug therapy mirtazapine 7.5 mg oral tablet (1 source) Start: 06-28-2025 take 1 tablet by mouth at bedtime Mirtazapine 7.5 mg tablet Active 7.5 mg PO AT BEDTIME June 28, 2025 12:00am Complies with drug therapy pregabalin 25 mg oral capsule (20 sources) Start: 07-10-2025 take 1 capsule by mouth once daily in the evening Start: 06-05-2025 End: 07-10-2025 take 1 capsule by mouth once daily in the evening Pregabalin 25 mg capsule Discontinued 25 mg PO daily 30 30 0 July 03, 2025 1:21pm August 01, 2025 1:00am July 10, 2025 9:45am neuropathic pain Give in evening. Start: 04-05-2025 End: 06-02-2025 take 1 capsule by mouth once daily in the evening Pregabalin 25 mg capsule Discontinued 25 mg PO daily 30 30 0 May 03, 2025 1:35pm June 01, 2025 12:00am June 02, 2025 12:10am neuropathic pain Give in evening. Start: 02-01-2025 [...] 30, 2021 1:00am September 30, 2024 5:08pm divalproex sodium 125 mg delayed release oral capsule (1 source) Mood Stabilizer, Anti-epileptic Agent Start: 06-28-2025 take 1 capsule by mouth three times daily Divalproex 125 mg capsule, delayed rel sprinkle Active 125 mg PO THREE TIMES A DAY June 28, 2025 12:00am Complies with drug therapy Vit C,X-Mi-Wmpzu-Lute in-Zeaxan (10 sources) Start: 05-13-2019 Vit C,A-Hj-Iucta-Lut ein-Zeaxan Active 1 EACH PO DAILY May 13, 2019 9:27am Start: 05-13-2019 End: 05-21-2023 Vit C,G-Ei-Yszwh-Lutein-Zeax an Discontinued 1 EACH PO DAILY May 13, 2019 12:00am May 21, 2023 10:07am Start: 05-13-2019 End: 05-21-2023 Vit C,E-Rm-Ifokz-Lutein-Zeax an Discontinued 1 EACH PO DAILY May 12, 2019 11:00pm May 21, 2023 9:07am Start: 05-13-2019 Vit C,E-Zn-Research Management Associate zb-Lrxeyu-Joeduc Active 1 EACH PO DAILY May 12, 2019 11:00pm Start: 05-13-2019 Vit C,E-Zn-Research Management Associate dq-Hrxcqk-Bugtse Active 1 EACH PO DAILY May 13, 2019 12:00am Completed/Discontinued Medications Medication Drug Class(es) Dates Sig (Normalized) Sig (Original) HYDROCODONE-ACETAM INOPHEN (2 sources) Opioid Agonist Start: 05-07-2016 take 1 tablet by mouth once daily at bedtime NORCO 5-325 MG TABS One tablet by mouth daily @ bedtime HYDROCODONE-ACETAMI NOPHEN [id number] Jose Vargas MD Start: 05-07-2016 End: 06-05-2017 take 1 tablet by mouth once daily at bedtime NORCO 5-325 MG TABS One tablet by mouth daily @ bedtime HYDROCODONE-ACETAMINOPHEN [id number] Jose Vargas MD acetaminophen 325 mg / [...] PERCOCET 5-325 MG TABS As needed OXYCODONE-ACETAMINOPHEN [id number] Kaelyn Ellis RN Start: 12-07-2013 PERCOCET 5-325 MG TABS As needed OXYCODONE-ACETAMINOPHEN [id number] Zaria Trevino PA-C Start: 12-07-2013 End: 11-05-2015 PERCOCET 5-325 MG TABS As ne eded OXYCODONE-ACETAMINOPHEN [id number] Zaria Trevino PA-C Start: 02-10-2013 PERCOCET 10-32 5 MG TABS As needed OXYCODONE-ACETAMINOPHEN [id number] Jose Vargas MD Comment on above: thirty [...] mg/ml / simethicone 4 mg/ml oral suspension (16 sources) Start: 04-09-2023 End: 02-07-2024 take 1 [...] One tablet by mouth daily AMIODARONE HCL [id number] Jose Vargas MD Start: 11-25-2011 take 1 tablet by jeffry twice daily AMIODARONE HCL 200 MG TABS One tablet by mouth twice daily AMIODARONE HCL [id number] Jose Vargas MD amoxicillin 500 mg oral [...] One tablet by mouth daily ATORVASTATIN CALCIUM [id number] Zaria Trevino PA-C Start: 11-25-2011 End: 04-06-2014 [...] {Packet} Refills: 3 Ordered: 06-Apr-2014 Alyson Dixon ELENA Start : 04-Jul-2013 End : 06-Apr-2014 Inactive benzocaine 0.1 mg/mg oral gel (16 sources) Standardized Chemical Allergen Start: 04-09-2023 End: [...] tablet by mouth daily CALCIUM CARBONATE TABS [id number] Dick Morris DO calcium carbonate / vitamin D (2 sources) Start: 01-06-2012 take 1 tablet by mouth once daily CALCIUM + D 600-200 MG-UNIT TABS One tablet by mouth daily CALCIUM CARBONATE-VITAMIN D [id number] Jose Vargas MD Start: 01-06-2012 End: 04-12-2012 take 1 tablet by mouth once daily CALCIUM + D 600-200 MG-UNIT TABS One tablet by mouth daily CALCIUM CARBONATE-VITAMIN D [id number] Jose Vargas MD casanthranol 30 mg / [...] capsule by mouth every week VITAMIN D3, [id number] (Oral Capsule) 1 (one) Capsule Capsule q week for 0 days Quantity: 4 {Capsule} Refills: 3 Ordered: 29-Nov-2015 Alyson Dixon LPN Start : 13-Jul-2014 End : 29-Nov-2015 Inactive Start: 01-06-2012 End: 04-12-2012 take 1 tablet by mouth once daily VITAMIN D 2000 UNIT TABS One tablet by mouth daily CHOLECALCIFEROL [id number] Jose Vargas MD ciprofloxacin 500 mg oral [...] Start : 26-Nov-2011 End : 03-Dec-2011 Inactive cloNIDine hydrochloride 0.1 mg oral tablet (16 sources) Central alpha-2 Adrenergic Agonist Start: 04-09-2023 End: 06-28-2025 take 1 tablet by mouth every two hours as needed Clonidine Hcl 0.1 mg tablet Discontinued 0.1 mg PO Q2H as needed for hypertensive emergency April 09, 2023 12:00am June 28, 2025 8:00pm If SBP >190 or DBP >110 may give 0.1mg PO, if after 2 hours BP still above parameters, may give another 0.1mg PO. clopidogrel 75 mg oral tablet (20 sources) [...] One tablet by mouth daily CRANBERRY CAPS [id number] Zaria Trevino PA-C CRANBERRY-VITAMIN C, 84-20MG (Oral [...] 0.05 % OINT apply twice daily DESONIDE [id number] Dick Morris DO desoximetasone 2.5 mg/ml topical cream (20 sources) Corticosteroid Start: 05-07-2011 End: 06-05-2011 TOPICORT, 0.25% (External Cream) 1 Cream bid for 0 days Quantity: 1 {Cream} Refills: 0 Ordered: 05-Jun-2011 Alyson Dixon LPN Start : 07-May-2011 End : 05-Jun-2011 Inactive TOPICORT 0.25 % CREA apply twice daily DESOXIMETASONE [id number] Dick Morris DO End: 04-12-2012 TOPICORT 0.25 % CREA apply t wice daily DESOXIMETASONE [id number] Jose Vargas MD diazePAM 2 mg oral [...] tablet by mouth twice daily DIPHENHYDRAMINE HCL [id number] Mary Nolen RN ergocalciferol 12540 unt oral capsule (20 sources) Provitamin D2 Compound Start: 01-12-2009 End: 04-13-2014 take 1 capsule by mouth every week ERGOCALCIFEROL, [id number] (Oral Capsule) 1 Capsule 2 x week for 0 days Quantity: 8 {Capsule} Refills: 3 Ordered: 13-Apr-2014 Alyson Dixon LPN Start : 12-Jan-2009 End : 13-Apr-2014 Inactive End: 01-06-2012 VITAMIN D (ERGOCALCIFEROL) 5 0000 UNIT CAPS one tablet twice a week ERGOCALCIFEROL [id number] Dick Morris DO escitalopram 10 mg oral tablet (16 sources) Serotonin Reuptake Inhibitor Start: 04-09-2023 End: 06-28-2025 take 1 tablet by mouth once daily Escitalopram Oxalate 10 mg tablet Discontinued 10 mg PO DAILY April 09, 2023 12:00am June 28, 2025 8:00pm estradiol 0.025 mg vaginal tablet (18 sources) [...] tablet by mouth three times daily GABAPENTIN [id number] Jose Vargas MD Start: 02-10-2013 End: 11-05-2015 take 1 tablet by mouth twice daily GABAPENTIN 600 MG TABS One tablet by mouth twice daily GABAPENTIN [id number] Zaria Trevino PA-C Start: 01-06-2012 take 1 tablet by jeffry th three times daily NEURONTIN 100 MG CAPS One tablet by mouth three times daily GABAPENTIN [id number] Jose Vagras MD hydrOXYzine hydrochloride 50 mg oral tablet [...] {Tablet} Refills: 1 Ordered: 13-Dec-2009 Mirella Mccracken DO Nicole DO Mirella Start : 13-Dec-2009 End : 13-Dec-2009 Discontinued 24 hr isosorbide mononitrate 30 mg extended release oral tablet (4 sources) Start: 08-08-2013 End: 12-07-2013 take 1 tablet by mouth once daily ISOSORBIDE MONONITRATE ER 30 MG [id number] One tablet by mouth daily (Imdur) ISOSORBIDE MONONITRATE [id number] Zaria Trevino PA-C Start: 04-27-2013 take 1 tablet by jeffry th once daily IMDUR 60 MG [id number] One tablet by mouth daily ISOSORBIDE MONONITRATE [id number] Jose aVrgas MD Start: 03-09-2013 take 1 tablet by jeffry th once daily IMDUR 30 MG [id number] One tablet by mouth daily ISOSORBIDE MONONITRATE [id number] Jose Vargas MD [id number] TAB S (2 sources) take 1 tablet by mouth once daily CEREFOLIN TABS One tablet by mouth daily [id number] TABS [id number] Dick Morris DO End: 12-22-2011 take 1 tablet by mouth once daily CEREFOLIN TABS One tablet by mouth daily [id number]-[id number]-[id number] TABS [id number] Mary Nolen RN lisinopril 5 mg oral tablet (20 sources) Angiotensin Converting Enzyme Inhibitor Start: 04-24-2014 End: 06-27-2014 take 1 tablet by mouth once daily LISINOPRIL 2.5 MG TABS One tablet by mouth daily LISINOPRIL [id number] Kaelyn Ellis RN Start: 12-07-2013 End: 04-10-2014 take 1 tablet by mouth once daily LISINOPRIL 5 MG TABS One tablet by mouth daily LISINOPRIL [id number] Jose Vargas MD Start: 04-27-2013 End: 11-05-2015 [...] TABS One tablet by mouth daily LUTEIN [id number] Zaria Trevino PA-C End: 07-08-2012 take 1 tablet by mouth once daily LUTEIN CAPS One tablet by mouth daily LUTEIN CAPS [id number] Dick Morris DO melatonin 3 mg / [...] TABS One tablet by mouth daily MELOXICAM [id number] Zaria Trevino PA-C metaxalone 800 mg oral [...] tablet by mouth twice daily METOPROLOL TARTRATE [id number] Jose Vargas MD Start: 03-11-2012 End: 04-06-2014 [...] tablet by mouth twice daily METOPROLOL TARTRATE [id number] Jose Vargas MD Multivitamin preparation (18 sources) End: 11-29-2015 MULTIVITAMIN (Oral Liquid) for 0 days Refills: 0 Ordered: 29-Nov-2015 Alyson Dixon LPN End : 29-Nov-2015 Inactive nitroglycerin 0.4 mg sublingual tablet (20 sources) Nitrate Vasodilator Start: 01-06-2012 End: 04-10-2014 NITROSTAT 0.4 MG SUBL 1 tablet under tongue every 5 min up to 3 X NITROGLYCERIN [id number] Jose Vargas MD Start: 12-26-2011 End: 11-29-2015 [...] CPDR One capsule by mouth daily OMEPRAZOLE [id number] Lex Munoz Start: 12-31-2011 End: 06-20-2013 PRILOSEC, 20MG (Oral Capsule Delayed Release) [address] qd for 0 days Quantity: 30 {Capsule_DR} Refills: 0 Ordered: 20-Jun-2013 FRANCI Castelan Start : 31-Dec-2011 End : 20-Jun-2013 Inactive End: 12-22-2011 take 1 tablet by mouth once daily PRILOSEC 10 MG CPDR One tablet by mouth daily OMEPRAZOLE [id number] Dick Morris DO oxyCODONE hydrochloride 5 mg oral tablet (20 sources) Opioid Agonist Start: 02-07-2024 End: 06-28-2025 take 1 tablet by mouth every twelve hours Oxycodone 5 mg tablet Discontinued 5 mg PO Q12H February 07, 2024 12:00am June 28, 2025 8:00pm Start: 04-09-2023 End: 06-28-2025 take 1 capsule by mouth every six hours as needed for pain Oxycodone 5 mg capsule Discontinued 5 mg PO EVERY 6 HOURS as needed for pain 0 April 09, 2023 12:00am June 28, 2025 8:00pm pantoprazole 20 mg delayed release oral tablet (2 sources) Proton Pump Inhibitor End: 04-12-2012 take 1 tablet by mouth once daily PROTONIX 20 MG TBEC One tablet by mouth daily PANTOPRAZOLE SODIUM [id number] Jose Vargas MD pravastatin sodium 80 mg [...] Three tablets by mouth daily PREDNISONE TABS [id number] aMry Nolen RN take 3 tablets by mo [facility] once daily PREDNISONE TABS Three tablets by mouth daily PREDNISONE TABS [id number] Dick Morris DO rosuvastatin calcium 10 mg oral tablet (20 sources) HMG-CoA Reductase Inhibitor Start: 02-02-2019 take 1 tablet by mouth once daily Crestor 10 MG Oral Tablet 1 (one) Tablet qd for 0 days Quantity: 30 {Tablet} Refills: 4 Ordered: 02-Feb-2019 Mirella Mccracken DO, DO, Kathleen Start : 02-Feb-2019 Active Comments: substitute generic Start: 01-19-2019 take 1 tablet by jeffry once daily Crestor 10 MG Oral Tablet [...] One tablet by mouth daily ROSUVASTATIN CALCIUM [id number] Jose Vargas MD Comment on above: substitute generic Mail order. DOCUSATE SODIUM CAPS (2 sources) COLACE CAPS as n eeded DOCUSATE SODIUM CAPS [id number] Dick Morris DO End: 10-10-2014 COLACE CAPS as needed 10/10 DOCUSATE SODIUM CAPS [id number] Zaria Trevino PA-C 28 actuat teriparatide 0.02 [...] mouth once daily DETROL LA 4 MG [id number] One tablet by mouth daily TOLTERODINE TARTRATE [id number] Mary Nolen RN take 1 tablet by jeffry th once daily DETROL LA 4 MG [id number] One tablet by mouth daily TOLTERODINE TARTRATE [id number] Dick Morris DO traMADol hydrochloride 50 mg [...] mouth three times daily TRAMADOL HCL TABS [id number] Dick Morris DO End: 12-22-2011 take 1 tablet by mouth three times daily ULTRAM TABS One tablet by mouth three times daily TRAMADOL HCL TABS [id number] Mary Nolen RN Comment on above: sixty-- [...] and Norepinephrine Reuptake Inhibitor Start: 014 End: 07-24-2 014 take 1 tablet by mouth once daily VENLAFAXINE HCL, 37.5MG (Oral Tablet) 1 (one) Tablet Tablet qd for 0 days Quantity: 30 {Tablet} Refills: 3 Ordered: 06-Apr-2014 Alyson Dixon LPN Start : 01-Dec-2013 End : 06-Apr-2014 Inactive Vit C,Z-Jk-Eqzmu-Lutein-Ze axan 1 EACH capsule (12 sources) Start: End: take 1 capsule by mouth once daily Vit C,E-Sw-Agbsu-Lutein-Z eaxan 1 EACH capsule Discontinued 1 NMA PO DAILY May 13, 2019 12:00am May 21, 2023 10:07am CHOLECALCIFEROL (4 sources) Start: End: take 1 tablet by mouth once daily VITAMIN D 1000 UNIT TABS One tablet by mouth daily CHOLECALCIFEROL [id number] Zaria Trevino PA-C Start: 11-02-2015 take 1 tablet by jeffry th once daily VITAMIN D 1000 UNIT TABS One tablet by mouth daily CHOLECALCIFEROL [id number] Mary Nolen RN Start: 02-10-2013 End: 10-10-2014 take 1 tablet by mouth once daily VITAMIN D 1000 UNIT TABS One tablet by mouth daily CHOLECALCIFEROL [id number] Zaria Trevino PA-C Start: 02-10-2013 take 1 tablet by jeffry th once daily VITAMIN D 1000 UNIT TABS One tablet by mouth daily CHOLECALCIFEROL [id number] Jose Vargas MD Problems Active Problems Problem Classification Problem Date Documented Date Episodic/Chronic Adjustment disorders (18 sources) Adjustment disorder with depressed mood; Translations: [Grief finding] 01-21-2018 Chronic Anxiety disorders (20 sources) Anxiety; Translations: [Anxiety] 01-21-2018 Chronic Comment on above: stable Attention-deficit, conduct, and disruptive behavior disorders (1 source) Combativeness; Translations: [Other symptoms and signs involving appearance and behavior] 07-06-2025 Episodic Cardiac dysrhythmias (20 sources) Paroxysmal atrial fibrillation; [...] disease (20 sources) Atherosclerotic heart disease of [place] coronary artery without angina pectoris; Translations: [Coronary arteriosclerosis] Onset: 12-30-2011 10-31-2016 Chronic Delirium, dementia, and amnestic and other cognitive disorders (20 sources) Dementia; Translations: [Dementia with agitation] Onset: 06-06-2025 08-22-2024 Chronic Disorders of lipid metabolism (20 sources) Hyperlipidemia; Translations: [Pure hypercholesterolemia] Onset: 01-06-2012 01-06-2012 Chronic Essential hypertension (20 sources) Hypertensive disorder; Translations: [Essential (primary) hypertension] Onset: 12-30-2011 12-30-2011 Chronic Fluid and electrolyte disorders (1 source) Hyperkalemia; Translations: [Hyperkalemia] Onset: 07-13-2025 Episodic Genitourinary symptoms and ill-defined conditions (20 sources) Urinary incontinence; Translations: [Urinary incontinence] 01-21-2018 Chronic Headache; including migraine (18 sources) Muscular headache ; Translations: [Muscle tension headache] 01-21-2018 Chronic Headache; including migraine (18 sources) Headache; including migraine Malaise and fatigue (2 sources) Chronic fatigue, unspecified; Translations: [Chronic fatigue, unspecified] Onset: 06-06-2025 Chronic Malignant neoplasm without specification of site [...] current use of drug therapy; Translations: [Other exterminator (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 therapy] 11-23-2017 Episodic Other bone disease and musculoskeletal deformities (12 sources) Avascular necrosis of bone of hip; [...] falling] 10-24-2013 Episodic Other nervous system disorders (12 sources) Walking disability; Translations: [Difficulty in walking, not elsewhere classified] 02-07-2024 Chronic Other non-traumatic joint disorders (19 sources) Pain in left knee; Translations: [Left [...] refer again for comparison Residual codes; unclassified (1 source) Disorientation, unspecified; Translations: [Disorientation, unspecified] Onset: 07-06-2025 Episodic Screening and history of mental health and [...] elsewhere, unspecified severity, with agitation] Onset: 10-25-2024 Past or Other Problems Problem Classification Problem [...] (current) use of other medications; Translations: [Other custodial (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 therapy] Onset: 07-08-2013 Resolved: 05-11-2015 [...] p laced her on asa-- cardio at [place]- he said no more plavix ever- rec [...] p laced her on asa-- cardio at [place]- he said no more plavix ever- rec [...] limb Unclassified (12 sources) Therapeutic drug monitoring Urinary tract infections (20 sources) Acute cystitis; Translations: [Urinary tract infection, site not specified] Onset: 01-27-2025 01-21-2018 Episodic Results Test Name Value Interpretation Reference Range Facility Absolute lymphocyte countOrd ered By: Aric Oneil on 06-28-2025 Lymphocytes Auto (Unsp spec) [#/Vol] 1.59 10*3/uL 0.83-4.51 [facility] Absolute neutrophil countOrd ered By: Aric Oneil on 06-28-2025 Neutrophils (Bld) [#/Vol] 2.8 10*3/uL 2.0-7.7 [facility] Anion gap in Serum or Plasma Ordered By: Aric Oneil on 06-28-2025 Anion gap [Moles/Vol] 9 mmol/L - [facility] Automated lymphocyte count a s percentage of total leukocytesOrdered By: Aric Oneil on 06-28-2025 Lymphocytes/100 WBC Auto (Unsp spec) 30.5 % - [facility] BUN/creatinine ratioOrdered By: Aric Oneil on 06-28-2025 Urea nitrogen/Creatinine [Mass ratio] 25.4 mg/mg High 07-03 [facility] Basic Metabolic Profile (BMP )on 06-28-2025 BUN/CRE 25.4 RATIO High 07-03 [facility] Comment on above: Performed By: #### L 100.0100, L500.2500 #### [facility] [address] [place], [address] Calcium [Mass/Vol] 9.4 mg/dL Normal 7.6-11.0 [facility] Comment on above: Performed By: #### L 100.0100, L500.2500 #### [facility] [address] [place], [address] Chloride [Moles/Vol] 103 mmol/L Normal 98-108 [facility] Comment on above: Performed By: #### L 100.0100, L500.2500 #### [facility] [address] [place], [address] CO2 [Moles/Vol] 28.7 mmol/L Normal 21.0-32.0 [facility] Comment on above: Performed By: #### L 100.0100, L500.2500 #### [facility] [address] [place], [address] Creatinine [Mass/Vol] 0.78 mg/dL Normal 0.70-1.20 [facility] Comment on above: Performed By: #### L 100.0100, L500.2500 #### [facility] [address] [place], [address] GAP 9 Normal -15 [facility] Comment on above: Performed By: #### L 100.0100, L500.2500 #### [facility] [address] [place], [address] GFR/1.73 sq M.predicted among non-blacks MDRD (S/P/Bld) [Vol rate/Area] 74 mL/min/{1.73_m2} Normal >60 [facility] Comment on above: Result Comment: mL/m in/1.73m2 CKD-EPI Creatinine Equation (2020) Performed By: #### L 100.0100, L500.2500 #### [facility] [address] [place], [address] Glucose [Mass/Vol] 129 mg/dL High 70-99 [facility] Comment on above: Performed By: #### L 100.0100, L500.2500 #### [facility] [address] [place], [address] Potassium [Moles/Vol] 4.3 mmol/L Normal 3.3-5.1 [facility] Comment on above: Performed By: #### L 100.0100, L500.2500 #### [facility] [address] [place], [address] Sodium [Moles/Vol] 141 mmol/L Normal 133-145 [facility] Comment on above: Performed By: #### L 100.0100, L500.2500 #### [facility] [address] [place], [address] Urea nitrogen [Mass/Vol] 20 mg/dL High 4-19 [facility] Comment on above: Performed By: #### L 100.0100, L500.2500 #### [facility] [address] [place], [address] Basophil percentageOrdered B y: Aric Oneil on 06-28-2025 Basophils/100 WBC (Bld) 0.6 % 0-1 [facility] Bilirubin Test strip Ql (U)O rdered By: Aric Oneil on 06-28-2025 Bilirubin Ql (U) Negative Negative [facility] CBC W/Diff, Automatedon 10 Absolute Lymph 1.59 X10 3/uL Normal 0.83-4.51 [facility] Comment on above: Performed By: #### L 100.0100, L500.2500 #### [facility] [address] [place], [address] Absolute Neut 2.8 X10 3/uL Normal 2.0-7.7 [facility] Comment on above: Performed By: #### L 100.0100, L500.2500 #### [facility] [address] [place], [address] Basophils/100 WBC (Bld) 0.6 % Normal 0-1 [facility] Comment on above: Performed By: #### L 100.0100, L500.2500 #### [facility] [address] [place], [address] Eosinophils/100 WBC (Bld) 4.6 % Normal 0-5 [facility] Comment on above: Performed By: #### L 100.0100, L500.2500 #### [facility] [address] [place], [address] Erythrocyte distribution width (RBC) [Ratio] 13.2 % Normal 11.6-14.6 [facility] Comment on above: Performed By: #### L 100.0100, L500.2500 #### [facility] [address] [place], [address] Hematocrit (Bld) [Volume fraction] 39.9 % Normal 37-47 [facility] Comment on above: Performed By: #### L 100.0100, L500.2500 #### [facility] [address] [place], [address] Hemoglobin (Bld) [Mass/Vol] 13.2 g/dL Normal 12.0-15.0 [facility] Comment on above: Performed By: #### L 100.0100, L500.2500 #### [facility] [address] [place], [address] IG% 0.200 Normal 0.0-0.9 [facility] Comment on above: Result Comment: IG% - Immature Granulocytes (promyelocytes, myelocytes and metamyelocytes) > 1% indicates that a LEFT SHIFT is Present. Performed By: #### L 100.0100, L500.2500 #### [facility] [address] [place], [address] Lymphocytes/100 WBC (Bld) 30.5 % Normal 19-41 [facility] Comment on above: Performed By: #### L 100.0100, L500.2500 #### [facility] [address] [place], [address] MCH (RBC) [Entitic mass] 31.6 pg Normal 27.0-32.0 [facility] Comment on above: Performed By: #### L 100.0100, L500.2500 #### [facility] [address] [place], [address] MCHC (RBC) [Mass/Vol] 33.1 g/dL Normal 32-36 [facility] Comment on above: Performed By: #### L 100.0100, L500.2500 #### [facility] [address] [place], [address] MCV (RBC) [Entitic vol] 95.5 fL Normal 81-99 [facility] Comment on above: Performed By: #### L 100.0100, L500.2500 #### [facility] [address] [place], [address] Monocytes/100 WBC (Bld) 10.3 % High 0-10 [facility] Comment on above: Performed By: #### L 100.0100, L500.2500 #### [facility] [address] [place], [address] Neutrophils/100 WBC (Bld) 53.8 % Normal 47-70 [facility] Comment on above: Performed By: #### L 100.0100, L500.2500 #### [facility] [address] [place], [address] Nucleated RBC (Bld) [#/Vol] 0 10*3/uL Normal 0-5 [facility] Comment on above: Performed By: #### L 100.0100, L500.2500 #### [facility] [address] [place], [address] Platelet mean volume (Bld) [Entitic vol] 10.2 fL Normal 6.2-12.0 [facility] Comment on above: Performed By: #### L 100.0100, L500.2500 #### [facility] [address] [place], [address] Platelets (Bld) [#/Vol] 219 10*3/uL Normal 150-450 [facility] Comment on above: Performed By: #### L 100.0100, L500.2500 #### [facility] [address] [place], [address] RBC (Bld) [#/Vol] 4.18 10*6/uL Low 4.2-5.4 [facility] Comment on above: Performed By: #### L 100.0100, L500.2500 #### [facility] [address] [place], [address] RDW SD 46.7 fl High 35.1-43.9 [facility] Comment on above: Performed By: #### L 100.0100, L500.2500 #### [facility] [address] [place], [address] WBC (Bld) [#/Vol] 5.2 10*3/uL Normal 4.4-11.0 [facility] Comment on above: Performed By: #### L 100.0100, L500.2500 #### [facility] [address] [place], [address] Carbon dioxide, total [Moles /volume] in Central venous bloodOrdered By: Aric Oneil on 06-28-2025 CO2 [Moles/Vol] 28.7 mmol/L 21.0-32.0 [facility] Chloride assayOrdered By: Nathanael Oneil on 06-28-2025 Chloride [Moles/Vol] 103 mmol/L 98-108 [facility] Emergency Department Summary on 06-28-2025 Emergency Department Summary [facility] Medical Records Department [address] [place] [address] Emergency Department Summary 06/28/25 MR#: [id number] Acct: [id number] Name: AGUSTIN GARCIA Rep #: [id number] : 1940 85 From: Aric Oneil MD PCP: Dr. Yesika Faust MD Status:REG ER Location: ED HPI History of Present Illness Chief Complaint: Confusion Narrative Narrative: 85-year-old female past medical history of dementia with agitation presents from [facility] after being combative with staff. Patient denies any fevers or chills, no nausea or vomiting, denies that she is in pain anywhere. She had not been combative with squad or staff here as of yet. On review of her paperwork, she is DO NOT RESUSCITATE [facility] arrest. [facility] Medical History Dyspnea Intermittent claudication Shortness of breath Family history of coronary artery disease Family history of hyperlipidemia Family history of hypertension Home Medications ???Medication ???Instructions ???Recorded ???Last Taken ???Type aspirin 81 mg tablet,delayed 81 mg PO DAILY@0800 07/25/1405/25 History release diclofenac sodium 1 % topical gel 4 g topical BID 09/30/21 Unknown History melatonin 3 mg capsule 3 mg PO HS 04/09/23 Unknown Histor y acetaminophen 500 mg tablet 1,000 mg PO TID 02/07/24 Unknown H istory donepezil 10 mg tablet 10 mg PO QHS 02/07/24 Unknown Hist ory duloxetine 60 mg capsule,delayed 60 mg PO DAILY 02/07/24 Unknown Hi story release sennosides 8.6 mg-docusate sodium 2 tab-cap PO QHS 02/07/24 Unknown History 50 mg tablet (Senexon-S) pregabalin 25 mg capsule 25 mg PO QDAY neuropathic pain 30 06/05/25 Unknown Rx days #30 caps lorazepam 0.5 mg tablet 0.5 mg PO TID agitation 30 days Unknown Rx #90 tabs brexpiprazole 1 mg tablet (Rexulti) 1 mg PO DAILY 06/28/25 Unknown History divalproex 125 mg capsule,delayed 125 mg PO TID 06/28/25 Unknown Hi story release sprinkle mirtazapine 7.5 mg tablet 7.5 mg PO QHS 06/28/25 Unknown His tory Allergy/AdvReac Type Severity Reaction Status Date / Time sulfamethoxazole Allergy Unknown Other Verified 06/28/25 19:24 acetaminophen (From Vicodin) Allergy Other Verified 06/28/25 19:24 hydrocodone (From Vicodin) Allergy Other Verified 06/28/25 19:24 Family History Other Family history of coronary artery disease Family history of hyperlipidemia Family history of hypertension Social History Smoking Status: Never smoker ROS ROS ED ROS Narrative Review of systems limited secondary to dementia. Patient denies fevers or chills, no nausea or vomiting, states she is not in pain anywhere. Denies any other symptoms. EXAM Physical Exam Narrative Exam Narrative: Afebrile. Vital signs noted. Nontoxic-appearing. Cardiovascular examination feels regular rate and rhythm. Lungs are clear to auscultation bilaterally. Abdomen soft and nontender without guarding or rebound. Neurological examination shows her comfortably lying on the cot. Awake, alert, interactive, currently pleasant. Const Vital Signs: 06/28/25 19:24 06/28/25 21:23 Temperature 98.3 F Temperature Source Oral Pulse Rate 83 Respiratory Rate 18 Blood Pressure 173/98 H 139/89 H Blood Pressure Mean 123 105 Pulse Ox 97 Oxygen Delivery Method Room Air MDM MDM MDM Narrative Medical decision making narrative: Differential diagnosis includes but not limited to dementia with agitation exacerbation versus dehydration versus UTI causing mental status change. Patient bolused normal saline 1 L intravenously. CBC, BMP, and UAC will be checked. I reviewed her laboratory work and she has normal white count of 5.2 with hemoglobin 13.2, hematocrit 39.9, platelet count 219. BMP is remarkable for glucose of 129 with a normal anion gap of 9, BUN of 20 which I think is nonspecific and creatinine 0.78. Urinalysis obtained and is negative for infection with 0-5 WBCs and 0 bacteria. I do not feel antibiotics are indicated. She was extremely agitated with the staff. I reviewed her medication list and she is supposed to be taking Ativan 0.5 mg orally up to 3 times a day. As this is already on her medication list and she is still agitated, she was administered Haldol 2 mg intravenously. She was still mildly combative. She will be dosed her Ativan 0.5 mg intravenously and [facility] I do not feel that she requires observation or admission as she has a history of dementia with agitation. Disposition is discharged home in stable condition. History Record Review Discussion w/independent historian: Patient Additional rec (more content not included)... Normal [facility] Eosinophil percentageOrdered By: Aric Oneil on 06-28-2025 Eosinophils/100 WBC (Bld) 4.6 % 0-5 [facility] Erythrocyte distribution wid th ratioOrdered By: Aric Oneil on 06-28-2025 Erythrocyte distribution width (RBC) [Ratio] 13.2 % 11.6-14.6 [facility] Erythrocyte distribution wid th standard deviationOrdered By: Aric Oneil on 06-28-2025 Erythrocyte distribution width (RBC) [Ratio] 46.7 fl High 35.1-43.9 [facility] Glomerular filtration rate ( GFR) estimation/1.73 sq m using serum, plasma, or whole bOrdered By: Aric Oneil on 06-28-2025 GFR/1.73 sq M.predicted among non-blacks MDRD (S/P/Bld) [Vol rate/Area] 74 mL/min/{1.73_m2} >60 [facility] Comment on above: mL/min/1.73m2 CKD-EP I Creatinine Equation (2020) Hematocrit Auto (Bld) [Volum e fraction]Ordered By: Aric Oneil on 06-28-2025 Hematocrit (Bld) [Volume fraction] 39.9 % 37-47 [facility] Hemoglobin measurementOrdere d By: Aric Oneil on 06-28-2025 Hemoglobin (Bld) [Mass/Vol] 13.2 g/dL 12.0-15.0 [facility] Immature granulocytes/100 WB C Auto (Bld)Ordered By: Aric Oneil on 06-28-2025 Immature granulocytes/100 WBC (Bld) 0.200 % 0.0-0.9 [facility] Comment on above: IG% - Immature Granu locytes (promyelocytes, myelocytes and metamyelocytes) > 1% indicates that a LEFT SHIFT is Present. Ketones Test strip Ql (U)Ord ered By: Aric Oneil on 06-28-2025 Ketones Ql (U) Negative Negative [facility] MCV (mean corpuscular volume ) determinationOrdered By: Aric Oneil on 06-28-2025 MCV (RBC) [Entitic vol] 95.5 fL 81-99 [facility] Mean corpuscular hemoglobin (MCH) determinationOrdered By: Aric Oneil on 06-28-2025 MCH (RBC) [Entitic mass] 31.6 pg 27.0-32.0 [facility] Mean corpuscular hemoglobin concentration (MCHC) determinationOrdered By: Aric Oneil on 06-28-2025 MCHC (RBC) [Mass/Vol] 33.1 g/dL 32-36 [facility] Mean platelet volume determi nationOrdered By: Aric Oneil on 06-28-2025 Platelet mean volume (Bld) [Entitic vol] 10.2 fL 6.2-12.0 [facility] Microscopic analysis of urin e for red blood cells (RBC)Ordered By: Aric Oneil on 06-28-2025 Microscopic analysis of urine for red blood cells (RBC) 0-5 SEEN /hpf 0-5 [facility] Monocyte percentageOrdered B y: Aric Oneil on 06-28-2025 Monocytes/100 WBC (Bld) 10.3 % High 0-10 [facility] Mucus LM Ql (Urine sed)Order ed By: Aric Oneil on 06-28-2025 Mucus Ql (Urine sed) 0 SEEN /hpf [facility] Neutrophil percentageOrdered By: Aric Oneil on 06-28-2025 Neutrophils/100 WBC (Bld) 53.8 % 47-70 [facility] Nitrite Test strip Ql (U)Ord ered By: Aric Oneil on 06-28-2025 Nitrite Ql (U) Negative Negative [facility] Nucleated red blood cell per centageOrdered By: Aric Oneil on 06-28-2025 Nucleated RBC/100 WBC (Bld) [Ratio] 0 % 0-5 [facility] Platelet countOrdered By: Nathanael Oneil on 06-28-2025 Platelets (Bld) [#/Vol] 219 10*3/uL 150-450 [facility] Potassium measurement (mass/ volume)Ordered By: Aric Oneil on 06-28-2025 Potassium (Unsp spec) [Mass/Vol] 4.3 mmol/L 3.3-5.1 [facility] Protein Test strip Ql (U)Ord ered By: Aric Oneil on 06-28-2025 Protein Ql (U) 15 mg/dl High Negative [facility] RBC Auto (Bld) [#/Vol]Ordere d By: Aric Oneil on 06-28-2025 RBC (Bld) [#/Vol] 4.18 10*6/uL Low 4.2-5.4 [facility] Serum creatinine measurement (mass/volume)Ordered By: Aric Oneil on 06-28-2025 Creatinine [Mass/Vol] 0.78 mg/dL 0.70-1.20 [facility] Serum glucose measurement (m ass/volume)Ordered By: Aric Oneil on 06-28-2025 Glucose [Mass/Vol] 129 mg/dL High 70-99 [facility] Serum or plasma calcium madi urement (mass/volume)Ordered By: Aric Oneil on 06-28-2025 Calcium [Mass/Vol] 9.4 mg/dL 7.6-11.0 [facility] Serum or plasma urea nitroge n measurement (mass/volume)Ordered By: Aric Oneil on 06-28-2025 Urea nitrogen [Mass/Vol] 20 mg/dL High 4-19 [facility] Sodium levelOrdered By: Aric Oneil on 06-28-2025 Sodium [Moles/Vol] 141 mmol/L 133-145 [facility] Squamous epithelial cells de tection in urine sediment by light microscopyOrdered By: Aric Oneil on 06-28-2025 Epithelial cells.squamous LM Ql (Urine sed) 0 SEEN /hpf 5-10 [facility] Urinalysis, Completeon 06-28 RBC 0-5 SEEN Normal 0-5 [facility] Comment on above: Order Comment: YANCI CTOR TO SPECIFY Performed By: #### L 400.0001 #### [facility] [address] [place], [address] WBC 0-5 SEEN Normal 0-5 [facility] Comment on above: Order Comment: YANCI CTOR TO SPECIFY Performed By: #### L 400.0001 #### [facility] [address] [place], [address] BACTERIA 0 SEEN Normal None Seen [facility] Comment on above: Order Comment: YANCI CTOR TO SPECIFY Performed By: #### L 400.0001 #### [facility] [address] [place], [address] EPI,SQUAMOUS 0 SEEN Normal 5-10 [facility] Comment on above: Order Comment: YANCI CTOR TO SPECIFY Performed By: #### L 400.0001 #### [facility] [address] [place], [address] Mucus Ql (Urine sed) 0 SEEN Normal [facility] Comment on above: Order Comment: YANCI CTOR TO SPECIFY Performed By: #### L 400.0001 #### [facility] [address] [place], [address] Urine clarityOrdered By: Pushpa Oneil on 06-28-2025 Clarity (U) Clear Clear [facility] Urine color determinationOrd ered By: Aric Oneil on 06-28-2025 Color (U) Yellow Yellow [facility] Urine glucose detectionOrder ed By: Aric Oneil on 06-28-2025 Glucose Ql (U) Normal mg/dl Normal [facility] Urine leukocyte esterase det ection by dipstickOrdered By: Aric Oneil on 06-28-2025 Leukocyte esterase Test strip Ql (U) Negative Negative [facility] Urine pHOrdered By: Aric vasquez on 06-28-2025 pH (U) 6.5 [pH] 5.0 - 8.0 [facility] Urine sediment bacteria coun t by microscopy (number/high power field)Ordered By: Aric Oneil on 06-28-2025 Bacteria LM.HPF (Urine sed) [#/Area] 0 /[HPF] None Seen [facility] Urine specific gravity measu rementOrdered By: Aric Oneil on 06-28-2025 Specific gravity (U) [Rel density] 1.015 1.002-1.03 0 [facility] Urine urobilinogen measureme ntOrdered By: Aric Oneil on 06-28-2025 Urobilinogen Ql (U) Normal mg/dl Normal [facility] White blood cell (WBC) count Ordered By: Aric Oneil on 06-28-2025 WBC (Bld) [#/Vol] 5.2 10*3/uL 4.4-11.0 [facility] White blood cell countOrdere d By: Aric Oneil on 06-28-2025 White blood cell count 0-5 SEEN /hpf 0-5 [facility] Absolute lymphocyte countOrd ered By: Yesika Faust on 06-19-2025 Lymphocytes Auto (Unsp spec) [#/Vol] 2.09 10*3/uL 0.83-4.51 [facility] Absolute neutrophil countOrd ered By: Yesika Faust on 06-19-2025 Neutrophils (Bld) [#/Vol] 2.4 10*3/uL 2.0-7.7 [facility] Anion gap in Serum or Plasma Ordered By: Yesika Faust on 06-19-2025 Anion gap [Moles/Vol] 11 mmol/L 01-26 [facility] Automated lymphocyte count a s percentage of total leukocytesOrdered By: Yesika Faust on 06-19-2025 Lymphocytes/100 WBC Auto (Unsp spec) 38.7 % - [facility] BUN/creatinine ratioOrdered By: Yesika Faust on 06-19-2025 Urea nitrogen/Creatinine [Mass ratio] 28.8 mg/mg High 10-20 [facility] Basophil percentageOrdered B y: Yesika Faust on 06-19-2025 Basophils/100 WBC (Bld) 0.6 % 0-1 [facility] Carbon dioxide, total [Moles /volume] in Central venous bloodOrdered By: Yesika Faust on 06-19-2025 CO2 [Moles/Vol] 25.4 mmol/L 21.0-32.0 [facility] Chloride assayOrdered By: Tad Faust on 06-19-2025 Chloride [Moles/Vol] 106 mmol/L 98-108 [facility] Eosinophil percentageOrdered By: Yesika Faust on 06-19-2025 Eosinophils/100 WBC (Bld) 7.0 % High 0-5 [facility] Erythrocyte distribution wid th ratioOrdered By: Yesika Faust on 06-19-2025 Erythrocyte distribution width (RBC) [Ratio] 13.3 % 11.6-14.6 [facility] Erythrocyte distribution wid th standard deviationOrdered By: ky Faust on 06-19-2025 Erythrocyte distribution width (RBC) [Ratio] 46.5 fl High 35.1-43.9 [facility] Glomerular filtration rate ( GFR) estimation/1.73 sq m using serum, plasma, or whole bOrdered By: Yesika Faust on 06-19-2025 GFR/1.73 sq M.predicted among non-blacks MDRD (S/P/Bld) [Vol rate/Area] 91 mL/min/{1.73_m2} >60 [facility] Comment on above: mL/min/1.73m2 CKD-EP I Creatinine Equation (2020) Hematocrit Auto (Bld) [Volum e fraction]Ordered By: Yesika Faust on 06-19-2025 Hematocrit (Bld) [Volume fraction] 38.1 % 37-47 [facility] Hemoglobin measurementOrdere d By: Yesika Faust on 06-19-2025 Hemoglobin (Bld) [Mass/Vol] 12.9 g/dL 12.0-15.0 [facility] Immature granulocytes/100 WB C Auto (Bld)Ordered By: Yesika Faust on 06-19-2025 Immature granulocytes/100 WBC (Bld) 0.200 % 0.0-0.9 [facility] Comment on above: IG% - Immature Granu locytes (promyelocytes, myelocytes and metamyelocytes) > 1% indicates that a LEFT SHIFT is Present. MCV (mean corpuscular volume ) determinationOrdered By: Yesika Faust on 06-19-2025 MCV (RBC) [Entitic vol] 95.0 fL 81-99 [facility] Mean corpuscular hemoglobin (MCH) determinationOrdered By: Yesika Faust on 06-19-2025 MCH (RBC) [Entitic mass] 32.2 pg High 27.0-32.0 [facility] Mean corpuscular hemoglobin concentration (MCHC) determinationOrdered By: Yesika Faust on 06-19-2025 MCHC (RBC) [Mass/Vol] 33.9 g/dL 32-36 [facility] Mean platelet volume determi nationOrdered By: Yesika Faust on 06-19-2025 Platelet mean volume (Bld) [Entitic vol] 10.8 fL 6.2-12.0 [facility] Monocyte percentageOrdered B y: Yesika Faust on 06-19-2025 Monocytes/100 WBC (Bld) 9.1 % 0-10 [facility] Neutrophil percentageOrdered By: Yesika Faust on 06-19-2025 Neutrophils/100 WBC (Bld) 44.4 % Low 47-70 [facility] Nucleated red blood cell per centageOrdered By: Yesika Faust on 06-19-2025 Nucleated RBC/100 WBC (Bld) [Ratio] 0 % 0-5 [facility] Platelet countOrdered By: Tad Faust on 06-19-2025 Platelets (Bld) [#/Vol] 193 10*3/uL 150-450 [facility] Potassium measurement (mass/ volume)Ordered By: Yesika Faust on 06-19-2025 Potassium (Unsp spec) [Mass/Vol] 3.9 mmol/L 3.3-5.1 [facility] RBC Auto (Bld) [#/Vol]Ordere d By: Yesika Faust on 06-19-2025 RBC (Bld) [#/Vol] 4.01 10*6/uL Low 4.2-5.4 [facility] Serum creatinine measurement (mass/volume)Ordered By: Yesika Faust on 06-19-2025 Creatinine [Mass/Vol] 0.51 mg/dL Low 0.70-1.20 [facility] Serum glucose measurement (m ass/volume)Ordered By: Yesika Faust on 06-19-2025 Glucose [Mass/Vol] 91 mg/dL 70-99 [facility] Serum or plasma calcium madi urement (mass/volume)Ordered By: Yesika Faust on 06-19-2025 Calcium [Mass/Vol] 9.2 mg/dL 7.6-11.0 [facility] Serum or plasma urea nitroge n measurement (mass/volume)Ordered By: Yesika Faust on 06-19-2025 Urea nitrogen [Mass/Vol] 15 mg/dL 4-19 [facility] Sodium levelOrdered By: Jed Faust on 06-19-2025 Sodium [Moles/Vol] 142 mmol/L 133-145 [facility] White blood cell (WBC) count Ordered By: Yesika Faust on 06-19-2025 WBC (Bld) [#/Vol] 5.4 10*3/uL 4.4-11.0 [facility] Bilirubin Test strip Ql (U)O rdered By: Yesika Faust on 06-03-2025 Bilirubin Ql (U) Negative Negative [facility] Ketones Test strip Ql (U)Ord ered By: Yesika Faust on 06-03-2025 Ketones Ql (U) 15 mg/dl High Negative [facility] Microscopic analysis of urin e for red blood cells (RBC)Ordered By: Yesika Faust on 06-03-2025 Microscopic analysis of urine for red blood cells (RBC) 0-5 SEEN /hpf 0-5 [facility] Mucus LM Ql (Urine sed)Order ed By: Yesika Faust on 06-03-2025 Mucus Ql (Urine sed) 0 SEEN /hpf [facility] Nitrite Test strip Ql (U)Ord ered By: Yesika Faust on 06-03-2025 Nitrite Ql (U) Positive High Negative [facility] Protein Test strip Ql (U)Ord ered By: Yesika Faust on 06-03-2025 Protein Ql (U) 30 mg/dl High Negative [facility] Squamous epithelial cells de tection in urine sediment by light microscopyOrdered By: eYsika Faust on 06-03-2025 Epithelial cells.squamous LM Ql (Urine sed) 0-5 SEEN /hpf 5-10 [facility] Transitional cells detection in urine sediment by light microscopyOrdered By: Yesika Faust on 06-03-2025 Transitional cells LM Ql (Urine sed) 0-5 SEEN /hpf 0-5 [facility] Urine clarityOrdered By: Randall Faust on 06-03-2025 Clarity (U) Cloudy Clear [facility] Urine color determinationOrd ered By: Yesika Faust on 06-03-2025 Color (U) Yellow Yellow [facility] Urine cultureOrdered By: Randall Faust on 06-03-2025 Bacteria identified Cx Nom (U) Staphylococcus aureus Abnormal [facility] Bacteria identified Cx Nom (U) Negative Abnormal [facility] Urine glucose detectionOrder ed By: Yesika Faust on 06-03-2025 Glucose Ql (U) Normal mg/dl Normal [facility] Urine leukocyte esterase det ection by dipstickOrdered By: Yesika Faust on 06-03-2025 Leukocyte esterase Test strip Ql (U) 500 /ul High Negative [facility] Urine pHOrdered By: Fernando Faust on 06-03-2025 pH (U) 6.0 [pH] 5.0 - 8.0 [facility] Urine sediment bacteria coun t by microscopy (number/high power field)Ordered By: Yesika Faust on 06-03-2025 Bacteria LM.HPF (Urine sed) [#/Area] RARE /hpf None Seen [facility] Urine specific gravity measu rementOrdered By: Yesika Faust on 06-03-2025 Specific gravity (U) [Rel density] 1.020 1.002-1.03 0 [facility] Urine urobilinogen measureme ntOrdered By: Yesika Faust on 06-03-2025 Urobilinogen Ql (U) Normal mg/dl Normal [facility] White blood cell countOrdere d By: Yesika Faust on 06-03-2025 White blood cell count >100 SEEN /hpf 0-5 [facility] Absolute lymphocyte countOrd ered By: Yesika Faust on 05-22-2025 Lymphocytes Auto (Unsp spec) [#/Vol] 2.01 10*3/uL 0.83-4.51 [facility] Absolute neutrophil countOrd ered By: Yesika Faust on 05-22-2025 Neutrophils (Bld) [#/Vol] 3.0 10*3/uL 2.0-7.7 [facility] Anion gap in Serum or Plasma Ordered By: Yesika Faust on 05-22-2025 Anion gap [Moles/Vol] 11 mmol/L 5-15 [facility] Automated lymphocyte count a s percentage of total leukocytesOrdered By: Yesika Faust on 05-22-2025 Lymphocytes/100 WBC Auto (Unsp spec) 32.4 % 19-41 [facility] BUN/creatinine ratioOrdered By: Yesika Faust on 05-22-2025 Urea nitrogen/Creatinine [Mass ratio] 32.0 mg/mg High 10-20 [facility] Basophil percentageOrdered B y: Yesika Faust on 05-22-2025 Basophils/100 WBC (Bld) 0.8 % 0-1 [facility] Bilirubin directOrdered By: Yesika Faust on 05-22-2025 Bilirubin.direct [Mass/Vol] 0.09 mg/dL 0.00-0.30 [facility] Bilirubin, totalOrdered By: Yesika Faust on 05-22-2025 Bilirubin [Mass/Vol] 0.21 mg/dL 0.00-1.30 [facility] Carbon dioxide, total [Moles /volume] in Central venous bloodOrdered By: Yesika Faust on 05-22-2025 CO2 [Moles/Vol] 27.6 mmol/L 21.0-32.0 [facility] Chloride assayOrdered By: Tad Faust on 05-22-2025 Chloride [Moles/Vol] 104 mmol/L 98-108 [facility] Eosinophil percentageOrdered By: Yesika Faust on 05-22-2025 Eosinophils/100 WBC (Bld) 6.5 % High 0-5 [facility] Erythrocyte distribution wid th ratioOrdered By: ky Faust on 05-22-2025 Erythrocyte distribution width (RBC) [Ratio] 12.7 % 11.6-14.6 [facility] Erythrocyte distribution wid th standard deviationOrdered By: enriquetaedroymacarena Faust on 05-22-2025 Erythrocyte distribution width (RBC) [Ratio] 44.8 fl High 35.1-43.9 [facility] Glomerular filtration rate ( GFR) estimation/1.73 sq m using serum, plasma, or whole bOrdered By: Yesika Faust on 05-22-2025 GFR/1.73 sq M.predicted among non-blacks MDRD (S/P/Bld) [Vol rate/Area] 88 mL/min/{1.73_m2} >60 [facility] Comment on above: mL/min/1.73m2 CKD-EP I Creatinine Equation (2020) Hematocrit Auto (Bld) [Volum e fraction]Ordered By: Yesika Faust on 05-22-2025 Hematocrit (Bld) [Volume fraction] 41.9 % 37-47 [facility] Hemoglobin measurementOrdere d By: Yesika Faust on 05-22-2025 Hemoglobin (Bld) [Mass/Vol] 13.9 g/dL 12.0-15.0 [facility] Immature granulocytes/100 WB C Auto (Bld)Ordered By: Yesika Faust on 05-22-2025 Immature granulocytes/100 WBC (Bld) 0.300 % 0.0-0.9 [facility] Comment on above: IG% - Immature Granu locytes (promyelocytes, myelocytes and metamyelocytes) > 1% indicates that a LEFT SHIFT is Present. Laboratory - Chemistry and C hemistry - challengeOrdered By: Yesika Faust on 05-22-2025 AST [Catalytic activity/Vol] 17 U/L <32 [facility] MCV (mean corpuscular volume ) determinationOrdered By: Yesika Faust on 05-22-2025 MCV (RBC) [Entitic vol] 95.0 fL 81-99 [facility] Mean corpuscular hemoglobin (MCH) determinationOrdered By: enriquetaedroymacarena Faust on 05-22-2025 MCH (RBC) [Entitic mass] 31.5 pg 27.0-32.0 [facility] Mean corpuscular hemoglobin concentration (MCHC) determinationOrdered By: Yesika Faust on 05-22-2025 MCHC (RBC) [Mass/Vol] 33.2 g/dL 32-36 [facility] Mean platelet volume determi nationOrdered By: Yesika Faust on 05-22-2025 Platelet mean volume (Bld) [Entitic vol] 10.5 fL 6.2-12.0 [facility] Monocyte percentageOrdered B y: Yesika Faust on 05-22-2025 Monocytes/100 WBC (Bld) 12.3 % High 0-10 [facility] Neutrophil percentageOrdered By: enriquetaedroymacarena Faust on 05-22-2025 Neutrophils/100 WBC (Bld) 47.7 % 47-70 [facility] Nucleated red blood cell per centageOrdered By: Yeskia Faust on 05-22-2025 Nucleated RBC/100 WBC (Bld) [Ratio] 0 % 0-5 [facility] Platelet countOrdered By: Tad Faust on 05-22-2025 Platelets (Bld) [#/Vol] 312 10*3/uL 150-450 [facility] Potassium measurement (mass/ volume)Ordered By: Yesika Faust on 05-22-2025 Potassium (Unsp spec) [Mass/Vol] 3.9 mmol/L 3.3-5.1 [facility] RBC Auto (Bld) [#/Vol]Ordere d By: Yesika Faust on 05-22-2025 RBC (Bld) [#/Vol] 4.41 10*6/uL 4.2-5.4 [facility] Serum creatinine measurement (mass/volume)Ordered By: Yesika Faust on 05-22-2025 Creatinine [Mass/Vol] 0.59 mg/dL Low 0.70-1.20 [facility] Serum globulin measurementOr dered By: Yesika Faust on 05-22-2025 Globulin (S) [Mass/Vol] 2.8 g/dL 2.2-4.2 [facility] Serum glucose measurement (m ass/volume)Ordered By: Yesika Faust on 05-22-2025 Glucose [Mass/Vol] 89 mg/dL 70-99 [facility] Serum or plasma alanine vela otransferase (ALT) measurementOrdered By: Yesika Faust on 05-22-2025 ALT [Catalytic activity/Vol] 8 U/L <35 [facility] Serum or plasma albumin madi urement (mass/volume)Ordered By: Yesika Faust 05-22-2025 Albumin [Mass/Vol] 3.8 g/dL 3.4-4.8 [facility] Serum or plasma alkaline mariaelena sphatase measurementOrdered By: Yesika Faust 05-22-2025 ALP [Catalytic activity/Vol] 204 U/L High 35-104 [facility] Serum or plasma calcium madi urement (mass/volume)Ordered By: Yesika Faust on 05-22-2025 Calcium [Mass/Vol] 9.6 mg/dL 7.6-11.0 [facility] Serum or plasma urea nitroge n measurement (mass/volume)Ordered By: Yesika Faust on 05-22-2025 Urea nitrogen [Mass/Vol] 19 mg/dL 4-19 [facility] Sodium levelOrdered By: Jed Faust on 05-22-2025 Sodium [Moles/Vol] 142 mmol/L 133-145 [facility] Total proteinOrdered By: Randall Faust on 05-22-2025 Protein [Mass/Vol] 6.6 g/dL 5.9-8.4 [facility] White blood cell (WBC) count Ordered By: Yesika Faust on 05-22-2025 WBC (Bld) [#/Vol] 6.2 10*3/uL 4.4-11.0 [facility] Absolute lymphocyte countOrd ered By: Yesika Faust on 05-16-2025 Lymphocytes Auto (Unsp spec) [#/Vol] 1.39 10*3/uL 0.83-4.51 [facility] Absolute neutrophil countOrd ered By: Yesika Faust on 05-16-2025 Neutrophils (Bld) [#/Vol] 9.3 10*3/uL High 2.0-7.7 [facility] Anion gap in Serum or Plasma Ordered By: Yesika Faust on 05-16-2025 Anion gap [Moles/Vol] 12 mmol/L 5-15 [facility] Automated lymphocyte count a s percentage of total leukocytesOrdered By: Yesika Faust on 05-16-2025 Lymphocytes/100 WBC Auto (Unsp spec) 11.7 % Low 19-41 [facility] BUN/creatinine ratioOrdered By: Yesika Faust on 05-16-2025 Urea nitrogen/Creatinine [Mass ratio] 24.6 mg/mg High 10-20 [facility] Basophil percentageOrdered B y: Yesika Faust on 05-16-2025 Basophils/100 WBC (Bld) 0.5 % 0-1 [facility] Carbon dioxide, total [Moles /volume] in Central venous bloodOrdered By: Yesika Faust on 05-16-2025 CO2 [Moles/Vol] 20.3 mmol/L Low 21.0-32.0 [facility] Chloride assayOrdered By: Tad Faust on 05-16-2025 Chloride [Moles/Vol] 103 mmol/L 98-108 [facility] Eosinophil percentageOrdered By: Yesika Faust on 05-16-2025 Eosinophils/100 WBC (Bld) 0.6 % 0-5 [facility] Erythrocyte distribution wid th ratioOrdered By: Yesika Faust on 05-16-2025 Erythrocyte distribution width (RBC) [Ratio] 13.1 % 11.6-14.6 [facility] Erythrocyte distribution wid th standard deviationOrdered By: Yesika Faust on 05-16-2025 Erythrocyte distribution width (RBC) [Ratio] 46.6 fl High 35.1-43.9 [facility] Glomerular filtration rate ( GFR) estimation/1.73 sq m using serum, plasma, or whole bOrdered By: Jededroymacarena Faust on 05-16-2025 GFR/1.73 sq M.predicted among non-blacks MDRD (S/P/Bld) [Vol rate/Area] 86 mL/min/{1.73_m2} >60 [facility] Comment on above: mL/min/1.73m2 CKD-EP I Creatinine Equation (2020) Hematocrit Auto (Bld) [Volum e fraction]Ordered By: Yesika Faust on 05-16-2025 Hematocrit (Bld) [Volume fraction] 41.8 % 37-47 [facility] Hemoglobin measurementOrdere d By: Jededroymacarena Faust on 05-16-2025 Hemoglobin (Bld) [Mass/Vol] 13.5 g/dL 12.0-15.0 [facility] Immature granulocytes/100 WB C Auto (Bld)Ordered By: Yesika Faust on 05-16-2025 Immature granulocytes/100 WBC (Bld) 0.500 % 0.0-0.9 [facility] Comment on above: IG% - Immature Granu locytes (promyelocytes, myelocytes and metamyelocytes) > 1% indicates that a LEFT SHIFT is Present. MCV (mean corpuscular volume ) determinationOrdered By: Yesika Faust on 05-16-2025 MCV (RBC) [Entitic vol] 98.4 fL 81-99 [facility] Mean corpuscular hemoglobin (MCH) determinationOrdered By: enriquetaedroymacarena Faust 05-16-2025 MCH (RBC) [Entitic mass] 31.8 pg 27.0-32.0 [facility] Mean corpuscular hemoglobin concentration (MCHC) determinationOrdered By: Yesika Faust on 05-16-2025 MCHC (RBC) [Mass/Vol] 32.3 g/dL 32-36 [facility] Mean platelet volume determi nationOrdered By: Yesika Faust on 05-16-2025 Platelet mean volume (Bld) [Entitic vol] 11.1 fL 6.2-12.0 [facility] Monocyte percentageOrdered B y: Yesika Faust on 05-16-2025 Monocytes/100 WBC (Bld) 8.3 % 0-10 [facility] Neutrophil percentageOrdered By: [facility] Peachmacarena Faust on 05-16-2025 Neutrophils/100 WBC (Bld) 78.4 % High 47-70 [facility] Nucleated red blood cell per centageOrdered By: enriquetaedroymacarena Faust on 05-16-2025 Nucleated RBC/100 WBC (Bld) [Ratio] 0 % 0-5 [facility] Platelet countOrdered By: Tad Faust on 05-16-2025 Platelets (Bld) [#/Vol] 218 10*3/uL 150-450 [facility] Potassium measurement (mass/ volume)Ordered By: Yesika Faust on 05-16-2025 Potassium (Unsp spec) [Mass/Vol] 5.2 mmol/L High 3.3-5.1 [facility] Comment on above: Hemolysis present, R esults could be affected. RBC Auto (Bld) [#/Vol]Ordere d By: Yesika Faust on 05-16-2025 RBC (Bld) [#/Vol] 4.25 10*6/uL 4.2-5.4 [facility] Serum creatinine measurement (mass/volume)Ordered By: Yesika Faust on 05-16-2025 Creatinine [Mass/Vol] 0.64 mg/dL Low 0.70-1.20 [facility] Serum glucose measurement (m ass/volume)Ordered By: Yesika Faust on 05-16-2025 Glucose [Mass/Vol] 86 mg/dL 70-99 [facility] Serum or plasma calcium madi urement (mass/volume)Ordered By: Yesika Faust on 05-16-2025 Calcium [Mass/Vol] 9.4 mg/dL 7.6-11.0 [facility] Serum or plasma urea nitroge n measurement (mass/volume)Ordered By: Yesika Faust on 05-16-2025 Urea nitrogen [Mass/Vol] 16 mg/dL 4-19 [facility] Sodium levelOrdered By: Jed jiangbert Christianne on 05-16-2025 Sodium [Moles/Vol] 135 mmol/L 133-145 [facility] White blood cell (WBC) count Ordered By: Yesika Faust on 05-16-2025 WBC (Bld) [#/Vol] 11.8 10*3/uL High 4.4-11.0 [facility] Absolute lymphocyte countOrd ered By: Yesika Faust on 04-14-2025 Lymphocytes Auto (Unsp spec) [#/Vol] 1.92 10*3/uL 0.83-4.51 [facility] Absolute neutrophil countOrd ered By: Yesika Faust on 04-14-2025 Neutrophils (Bld) [#/Vol] 5.3 10*3/uL 2.0-7.7 [facility] Anion gap in Serum or Plasma Ordered By: Yesika Faust on 04-14-2025 Anion gap [Moles/Vol] 11 mmol/L 5-15 [facility] Automated lymphocyte count a s percentage of total leukocytesOrdered By: Yesika Faust on 04-14-2025 Lymphocytes/100 WBC Auto (Unsp spec) 23.1 % 19-41 [facility] BUN/creatinine ratioOrdered By: Yesika Faust on 04-14-2025 Urea nitrogen/Creatinine [Mass ratio] 34.0 mg/mg High 10-20 [facility] Basophil percentageOrdered B y: Yesika Faust on 04-14-2025 Basophils/100 WBC (Bld) 0.6 % 0-1 [facility] Bilirubin directOrdered By: Yesika Faust on 04-14-2025 Bilirubin.direct [Mass/Vol] 0.09 mg/dL 0.00-0.30 [facility] Bilirubin, totalOrdered By: Yesika Faust on 04-14-2025 Bilirubin [Mass/Vol] 0.23 mg/dL 0.00-1.30 [facility] Carbon dioxide, total [Moles /volume] in Central venous bloodOrdered By: Yesika Faust on 04-14-2025 CO2 [Moles/Vol] 27.5 mmol/L 21.0-32.0 [facility] Chloride assayOrdered By: Tad Faust on 04-14-2025 Chloride [Moles/Vol] 100 mmol/L 98-108 [facility] Eosinophil percentageOrdered By: Yesika Faust on 04-14-2025 Eosinophils/100 WBC (Bld) 3.1 % 0-5 [facility] Erythrocyte distribution wid th ratioOrdered By: Yesika Faust on 04-14-2025 Erythrocyte distribution width (RBC) [Ratio] 13.0 % 11.6-14.6 [facility] Erythrocyte distribution wid th standard deviationOrdered By: Yesika Faust on 04-14-2025 Erythrocyte distribution width (RBC) [Ratio] 46.0 fl High 35.1-43.9 [facility] Glomerular filtration rate ( GFR) estimation/1.73 sq m using serum, plasma, or whole bOrdered By: Yesika Faust on 04-14-2025 GFR/1.73 sq M.predicted among non-blacks MDRD (S/P/Bld) [Vol rate/Area] 87 mL/min/{1.73_m2} >60 [facility] Comment on above: mL/min/1.73m2 CKD-EP I Creatinine Equation (2020) Hematocrit Auto (Bld) [Volum e fraction]Ordered By: Yesika Faust on 04-14-2025 Hematocrit (Bld) [Volume fraction] 44.9 % 37-47 [facility] Hemoglobin measurementOrdere d By: Yesika Faust on 04-14-2025 Hemoglobin (Bld) [Mass/Vol] 14.4 g/dL 12.0-15.0 [facility] Immature granulocytes/100 WB C Auto (Bld)Ordered By: Yesika Faust on 04-14-2025 Immature granulocytes/100 WBC (Bld) 0.600 % 0.0-0.9 [facility] Comment on above: IG% - Immature Granu locytes (promyelocytes, myelocytes and metamyelocytes) > 1% indicates that a LEFT SHIFT is Present. Laboratory - Chemistry and C hemistry - challengeOrdered By: Yesika Faust on 04-14-2025 AST [Catalytic activity/Vol] 19 U/L <32 [facility] MCV (mean corpuscular volume ) determinationOrdered By: Yesika Faust on 04-14-2025 MCV (RBC) [Entitic vol] 96.8 fL 81-99 [facility] Mean corpuscular hemoglobin (MCH) determinationOrdered By: Yesika Faust on 04-14-2025 MCH (RBC) [Entitic mass] 31.0 pg 27.0-32.0 [facility] Mean corpuscular hemoglobin concentration (MCHC) determinationOrdered By: Yesika Faust on 04-14-2025 MCHC (RBC) [Mass/Vol] 32.1 g/dL 32-36 [facility] Mean platelet volume determi nationOrdered By: Yesika Faust on 04-14-2025 Platelet mean volume (Bld) [Entitic vol] 10.5 fL 6.2-12.0 [facility] Monocyte percentageOrdered B y: Yesika Faust on 04-14-2025 Monocytes/100 WBC (Bld) 9.3 % 0-10 [facility] Neutrophil percentageOrdered By: Yesika Faust on 04-14-2025 Neutrophils/100 WBC (Bld) 63.3 % 47-70 [facility] Nucleated red blood cell per centageOrdered By: Yesika Faust on 04-14-2025 Nucleated RBC/100 WBC (Bld) [Ratio] 0 % 0-5 [facility] Platelet countOrdered By: Tad Faust on 04-14-2025 Platelets (Bld) [#/Vol] 263 10*3/uL 150-450 [facility] Potassium measurement (mass/ volume)Ordered By: Yesika Faust on 04-14-2025 Potassium (Unsp spec) [Mass/Vol] 4.2 mmol/L 3.3-5.1 [facility] RBC Auto (Bld) [#/Vol]Ordere d By: Yesika Faust on 04-14-2025 RBC (Bld) [#/Vol] 4.64 10*6/uL 4.2-5.4 [facility] Serum creatinine measurement (mass/volume)Ordered By: Yesika Faust on 04-14-2025 Creatinine [Mass/Vol] 0.62 mg/dL Low 0.70-1.20 [facility] Serum globulin measurementOr dered By: Yesika Faust on 04-14-2025 Globulin (S) [Mass/Vol] 2.9 g/dL 2.2-4.2 [facility] Serum glucose measurement (m ass/volume)Ordered By: Yesika Faust on 04-14-2025 Glucose [Mass/Vol] 114 mg/dL High 70-99 [facility] Serum or plasma alanine vela otransferase (ALT) measurementOrdered By: Yesika Faust on 04-14-2025 ALT [Catalytic activity/Vol] 19 U/L <35 [facility] Serum or plasma albumin madi urement (mass/volume)Ordered By: Yesika Faust on 04-14-2025 Albumin [Mass/Vol] 4.2 g/dL 3.4-4.8 [facility] Serum or plasma alkaline mariaelena sphatase measurementOrdered By: Yesika Faust on 04-14-2025 ALP [Catalytic activity/Vol] 135 U/L High 35-104 [facility] Serum or plasma calcium madi urement (mass/volume)Ordered By: Yesika Faust on 04-14-2025 Calcium [Mass/Vol] 9.7 mg/dL 7.6-11.0 [facility] Serum or plasma urea nitroge n measurement (mass/volume)Ordered By: Yesika Faust on 04-14-2025 Urea nitrogen [Mass/Vol] 21 mg/dL High 4-19 [facility] Sodium levelOrdered By: Jed Faust on 04-14-2025 Sodium [Moles/Vol] 139 mmol/L 133-145 [facility] Total proteinOrdered By: Randall Faust on 04-14-2025 Protein [Mass/Vol] 7.1 g/dL 5.9-8.4 [facility] White blood cell (WBC) count Ordered By: Yesika Faust on 04-14-2025 WBC (Bld) [#/Vol] 8.3 10*3/uL 4.4-11.0 [facility] Absolute lymphocyte countOrd ered By: Yesika Faust on 03-14-2025 Lymphocytes Auto (Unsp spec) [#/Vol] 2.03 10*3/uL 0.83-4.51 [facility] Absolute neutrophil countOrd ered By: Yesika Faust on 03-14-2025 Neutrophils (Bld) [#/Vol] 3.4 10*3/uL 2.0-7.7 [facility] Anion gap in Serum or Plasma Ordered By: Yesika Faust on 03-14-2025 Anion gap [Moles/Vol] 9 mmol/L 5-15 [facility] Automated lymphocyte count a s percentage of total leukocytesOrdered By: Yesika Faust on 03-14-2025 Lymphocytes/100 WBC Auto (Unsp spec) 31.4 % 19-41 [facility] BUN/creatinine ratioOrdered By: Yesika Faust on 03-14-2025 Urea nitrogen/Creatinine [Mass ratio] 38.6 mg/mg High 10-20 [facility] Basophil percentageOrdered B y: Yesika Faust on 03-14-2025 Basophils/100 WBC (Bld) 0.5 % 0-1 [facility] Carbon dioxide, total [Moles /volume] in Central venous bloodOrdered By: Yesika Faust on 03-14-2025 CO2 [Moles/Vol] 28.1 mmol/L 21.0-32.0 [facility] Chloride assayOrdered By: Tad mcpherson Scoutandreea on 03-14-2025 Chloride [Moles/Vol] 105 mmol/L 98-108 [facility] [facility] Eosinophil percentageOrdered By: Yesika Faust on 03-14-2025 Eosinophils/100 WBC (Bld) 5.6 % High 0-5 [facility] Erythrocyte distribution wid th ratioOrdered By: Yesika Faust on 03-14-2025 Erythrocyte distribution width (RBC) [Ratio] 12.8 % 11.6-14.6 [facility] Erythrocyte distribution wid th standard deviationOrdered By: Yesika Faust on 03-14-2025 Erythrocyte distribution width (RBC) [Ratio] 46.6 fl High 35.1-43.9 [facility] Glomerular filtration rate ( GFR) estimation/1.73 sq m using serum, plasma, or whole bOrdered By: Yesika Faust on 03-14-2025 GFR/1.73 sq M.predicted among non-blacks MDRD (S/P/Bld) [Vol rate/Area] 88 mL/min/{1.73_m2} >60 [facility] Comment on above: mL/min/1.73m2 CKD-EP I Creatinine Equation (2020) Hematocrit Auto (Bld) [Volum e fraction]Ordered By: Jededroymacarena Faust on 03-14-2025 Hematocrit (Bld) [Volume fraction] 39.8 % 37-47 [facility] Hemoglobin measurementOrdere d By: Yesika Faust 03-14-2025 Hemoglobin (Bld) [Mass/Vol] 12.8 g/dL 12.0-15.0 [facility] Immature granulocytes/100 WB C Auto (Bld)Ordered By: Yesika Faust on 03-14-2025 Immature granulocytes/100 WBC (Bld) 0.600 % 0.0-0.9 [facility] Comment on above: IG% - Immature Granu locytes (promyelocytes, myelocytes and metamyelocytes) > 1% indicates that a LEFT SHIFT is Present. MCV (mean corpuscular volume ) determinationOrdered By: Yesika Faust 03-14-2025 MCV (RBC) [Entitic vol] 99.0 fL 81-99 [facility] Mean corpuscular hemoglobin (MCH) determinationOrdered By: Yesika Faust on 03-14-2025 MCH (RBC) [Entitic mass] 31.8 pg 27.0-32.0 [facility] Mean corpuscular hemoglobin concentration (MCHC) determinationOrdered By: Yesika Faust on 03-14-2025 MCHC (RBC) [Mass/Vol] 32.2 g/dL 32-36 [facility] Mean platelet volume determi nationOrdered By: Yesika Faust on 03-14-2025 Platelet mean volume (Bld) [Entitic vol] 10.4 fL 6.2-12.0 [facility] Monocyte percentageOrdered B y: Yesika Faust on 03-14-2025 Monocytes/100 WBC (Bld) 10.2 % High 0-10 [facility] Neutrophil percentageOrdered By: Yesika Faust on 03-14-2025 Neutrophils/100 WBC (Bld) 51.7 % 47-70 [facility] Nucleated red blood cell per centageOrdered By: Yesika Faust on 03-14-2025 Nucleated RBC/100 WBC (Bld) [Ratio] 0 % 0-5 [facility] Platelet countOrdered By: Tad Faust on 03-14-2025 Platelets (Bld) [#/Vol] 238 10*3/uL 150-450 [facility] Potassium measurement (mass/ volume)Ordered By: Yesika Faust on 03-14-2025 Potassium (Unsp spec) [Mass/Vol] 4.1 mmol/L 3.3-5.1 [facility] RBC Auto (Bld) [#/Vol]Ordere d By: Yesika Faust on 03-14-2025 RBC (Bld) [#/Vol] 4.02 10*6/uL Low 4.2-5.4 [facility] Serum creatinine measurement (mass/volume)Ordered By: Yesika Faust on 03-14-2025 Creatinine [Mass/Vol] 0.60 mg/dL Low 0.70-1.20 [facility] Serum glucose measurement (m ass/volume)Ordered By: Yesika Faust on 03-14-2025 Glucose [Mass/Vol] 82 mg/dL 70-99 [facility] Serum or plasma calcium madi urement (mass/volume)Ordered By: Yesika Faust on 03-14-2025 Calcium [Mass/Vol] 9.1 mg/dL 7.6-11.0 [facility] Serum or plasma urea nitroge n measurement (mass/volume)Ordered By: Yesika Faust on 03-14-2025 Urea nitrogen [Mass/Vol] 23 mg/dL High 4-19 [facility] Sodium levelOrdered By: Jed Fauts on 03-14-2025 Sodium [Moles/Vol] 142 mmol/L 133-145 [facility] White blood cell (WBC) count Ordered By: Yesika Faust on 03-14-2025 WBC (Bld) [#/Vol] 6.5 10*3/uL 4.4-11.0 [facility] Bilirubin Test strip Ql (U)O rdered By: Yesika Faust on 03-06-2025 Bilirubin Ql (U) Negative Negative [facility] Ketones Test strip Ql (U)Ord ered By: Yesika Faust on 03-06-2025 Ketones Ql (U) 5 mg/dl High Negative [facility] Nitrite Test strip Ql (U)Ord ered By: Yesika Faust on 03-06-2025 Nitrite Ql (U) Negative Negative [facility] Protein Test strip Ql (U)Ord ered By: Yesika Faust on 03-06-2025 Protein Ql (U) 100 mg/dl High Negative [facility] Urine clarityOrdered By: Randall Faust on 03-06-2025 Clarity (U) Turbid Clear [facility] Urine color determinationOrd ered By: Yesika Faust on 03-06-2025 Color (U) Yellow Yellow [facility] Urine cultureOrdered By: Randall Faust on 03-06-2025 Bacteria identified Cx Nom (U) Proteus mirabilis Abnormal [facility] Urine glucose detectionOrder ed By: Yseika Faust on 03-06-2025 Glucose Ql (U) Normal mg/dl Normal [facility] Urine leukocyte esterase det ection by dipstickOrdered By: Yesika Faust on 03-06-2025 Leukocyte esterase Test strip Ql (U) 500 /ul High Negative [facility] Urine pHOrdered By: Fernando Faust on 03-06-2025 pH (U) 6.0 [pH] 5.0 - 8.0 [facility] Urine specific gravity measu rementOrdered By: Yesika Faust on 03-06-2025 Specific gravity (U) [Rel density] 1.020 1.002-1.03 0 [facility] Urine urobilinogen measureme ntOrdered By: Yesika Faust on 03-06-2025 Urobilinogen Ql (U) Normal mg/dl Normal [facility] Serum or plasma valproate me asurement (mass/volume)Ordered By: Yesika Faust on 02-27-2025 Valproate [Mass/Vol] 15 ug/mL Low 50-100 [facility] Comment on above: Valproic Acid concen trations >100 ug/mL are potentially toxic. Absolute lymphocyte countOrd ered By: Yesika Faust on 02-13-2025 Lymphocytes Auto (Unsp spec) [#/Vol] 1.82 10*3/uL 0.83-4.51 [facility] Absolute neutrophil countOrd ered By: Yesika Faust on 02-13-2025 Neutrophils (Bld) [#/Vol] 3.5 10*3/uL 2.0-7.7 [facility] Anion gap in Serum or Plasma Ordered By: Yesika Faust on 02-13-2025 Anion gap [Moles/Vol] 10 mmol/L 5-15 [facility] Automated lymphocyte count a s percentage of total leukocytesOrdered By: Yesika Faust on 02-13-2025 Lymphocytes/100 WBC Auto (Unsp spec) 29.1 % 19-41 [facility] BUN/creatinine ratioOrdered By: Yesika Faust on 02-13-2025 Urea nitrogen/Creatinine [Mass ratio] 32.3 mg/mg High 10-20 [facility] Basophil percentageOrdered B y: Yesika Faust on 02-13-2025 Basophils/100 WBC (Bld) 0.6 % 0-1 [facility] Carbon dioxide, total [Moles /volume] in Central venous bloodOrdered By: Yesika Faust on 02-13-2025 CO2 [Moles/Vol] 28.1 mmol/L 21.0-32.0 [facility] Chloride assayOrdered By: Tad Faust on 02-13-2025 Chloride [Moles/Vol] 101 mmol/L 98-108 [facility] Eosinophil percentageOrdered By: ky Faust on 02-13-2025 Eosinophils/100 WBC (Bld) 3.7 % 0-5 [facility] Erythrocyte distribution wid th ratioOrdered By: ky Faust on 02-13-2025 Erythrocyte distribution width (RBC) [Ratio] 12.9 % 11.6-14.6 [facility] Erythrocyte distribution wid th standard deviationOrdered By: Yesika Faust on 02-13-2025 Erythrocyte distribution width (RBC) [Ratio] 46.5 fl High 35.1-43.9 [facility] Glomerular filtration rate ( GFR) estimation/1.73 sq m using serum, plasma, or whole bOrdered By: Yesika Faust on 02-13-2025 GFR/1.73 sq M.predicted among non-blacks MDRD (S/P/Bld) [Vol rate/Area] 87 mL/min/{1.73_m2} >60 [facility] Comment on above: mL/min/1.73m2 CKD-EP I Creatinine Equation (2020) Hematocrit Auto (Bld) [Volum e fraction]Ordered By: Yesika Faust on 02-13-2025 Hematocrit (Bld) [Volume fraction] 43.2 % 37-47 [facility] Hemoglobin measurementOrdere d By: Yesika Faust on 02-13-2025 Hemoglobin (Bld) [Mass/Vol] 13.9 g/dL 12.0-15.0 [facility] Immature granulocytes/100 WB C Auto (Bld)Ordered By: Yesika Faust on 02-13-2025 Immature granulocytes/100 WBC (Bld) 0.300 % 0.0-0.9 [facility] Comment on above: IG% - Immature Granu locytes (promyelocytes, myelocytes and metamyelocytes) > 1% indicates that a LEFT SHIFT is Present. MCV (mean corpuscular volume ) determinationOrdered By: Yesika Faust on 02-13-2025 MCV (RBC) [Entitic vol] 97.7 fL 81-99 [facility] Mean corpuscular hemoglobin (MCH) determinationOrdered By: Yesika Faust on 02-13-2025 MCH (RBC) [Entitic mass] 31.4 pg 27.0-32.0 [facility] Mean corpuscular hemoglobin concentration (MCHC) determinationOrdered By: Yesika Faust on 02-13-2025 MCHC (RBC) [Mass/Vol] 32.2 g/dL 32-36 [facility] Mean platelet volume determi nationOrdered By: Yesika Faust on 02-13-2025 Platelet mean volume (Bld) [Entitic vol] 10.3 fL 6.2-12.0 [facility] Monocyte percentageOrdered B y: Yesika Faust on 02-13-2025 Monocytes/100 WBC (Bld) 10.7 % High 0-10 [facility] Neutrophil percentageOrdered By: Yesika Faust on 02-13-2025 Neutrophils/100 WBC (Bld) 55.6 % 47-70 [facility] Nucleated red blood cell per centageOrdered By: Yesika Faust on 02-13-2025 Nucleated RBC/100 WBC (Bld) [Ratio] 0 % 0-5 [facility] Platelet countOrdered By: Tad Faust on 02-13-2025 Platelets (Bld) [#/Vol] 231 10*3/uL 150-450 [facility] Potassium measurement (mass/ volume)Ordered By: Yesika Faust on 02-13-2025 Potassium (Unsp spec) [Mass/Vol] 4.0 mmol/L 3.3-5.1 [facility] RBC Auto (Bld) [#/Vol]Ordere d By: Yesika Faust on 02-13-2025 RBC (Bld) [#/Vol] 4.42 10*6/uL 4.2-5.4 [facility] Serum creatinine measurement (mass/volume)Ordered By: Yesika Faust on 02-13-2025 Creatinine [Mass/Vol] 0.62 mg/dL Low 0.70-1.20 [facility] Serum glucose measurement (m ass/volume)Ordered By: Yesika Faust on 02-13-2025 Glucose [Mass/Vol] 88 mg/dL 70-99 [facility] Serum or plasma calcium madi urement (mass/volume)Ordered By: Yesika Faust on 02-13-2025 Calcium [Mass/Vol] 9.3 mg/dL 7.6-11.0 [facility] Serum or plasma urea nitroge n measurement (mass/volume)Ordered By: Yesika Faust on 02-13-2025 Urea nitrogen [Mass/Vol] 20 mg/dL High 4-19 [facility] Sodium levelOrdered By: Tadenriqueta philippe Christianne on 02-13-2025 Sodium [Moles/Vol] 140 mmol/L 133-145 [facility] White blood cell (WBC) count Ordered By: Yesika Faust on 02-13-2025 WBC (Bld) [#/Vol] 6.3 10*3/uL 4.4-11.0 [facility] Potassium measurement (mass/ volume)Ordered By: Zeina Balbuena on 01-23-2025 Potassium (Unsp spec) [Mass/Vol] 3.8 mmol/L 3.3-5.1 [facility] Absolute lymphocyte countOrd ered By: Yesika Faust on 01-18-2025 Lymphocytes Auto (Unsp spec) [#/Vol] 1.51 10*3/uL 0.83-4.51 [facility] Absolute neutrophil countOrd ered By: Yesika Faust on 01-18-2025 Neutrophils (Bld) [#/Vol] 3.9 10*3/uL 2.0-7.7 [facility] Anion gap in Serum or Plasma Ordered By: Yesika Faust on 01-18-2025 Anion gap [Moles/Vol] 12 mmol/L 5-15 [facility] Automated lymphocyte count a s percentage of total leukocytesOrdered By: Yesika Faust on 01-18-2025 Lymphocytes/100 WBC Auto (Unsp spec) 23.4 % 19-41 [facility] BUN/creatinine ratioOrdered By: Yesika Faust on 01-18-2025 Urea nitrogen/Creatinine [Mass ratio] 36.2 mg/mg High 10-20 [facility] Basophil percentageOrdered B y: Yesika Faust on 01-18-2025 Basophils/100 WBC (Bld) 0.6 % 0-1 [facility] Bilirubin directOrdered By: Yesika aFust on 01-18-2025 Bilirubin.direct [Mass/Vol] 0.11 mg/dL 0.00-0.30 [facility] Bilirubin, totalOrdered By: Yesika Faust on 01-18-2025 Bilirubin [Mass/Vol] 0.25 mg/dL 0.00-1.30 [facility] Carbon dioxide, total [Moles /volume] in Central venous bloodOrdered By: Yesika Faust on 01-18-2025 CO2 [Moles/Vol] 22.7 mmol/L 21.0-32.0 [facility] Chloride assayOrdered By: Tad Faust on 01-18-2025 Chloride [Moles/Vol] 107 mmol/L 98-108 [facility] Eosinophil percentageOrdered By: Yesika Faust on 01-18-2025 Eosinophils/100 WBC (Bld) 6.1 % High 0-5 [facility] Erythrocyte distribution wid th ratioOrdered By: Yesika Faust on 01-18-2025 Erythrocyte distribution width (RBC) [Ratio] 13.4 % 11.6-14.6 [facility] Erythrocyte distribution wid th standard deviationOrdered By: Yesika Faust on 01-18-2025 Erythrocyte distribution width (RBC) [Ratio] 46.6 fl High 35.1-43.9 [facility] Glomerular filtration rate ( GFR) estimation/1.73 sq m using serum, plasma, or whole bOrdered By: Yesika Faust on 01-18-2025 GFR/1.73 sq M.predicted among non-blacks MDRD (S/P/Bld) [Vol rate/Area] 80 mL/min/{1.73_m2} >60 [facility] Comment on above: mL/min/1.73m2 CKD-EP I Creatinine Equation (2020) Hematocrit Auto (Bld) [Volum e fraction]Ordered By: Yesika Faust on 01-18-2025 Hematocrit (Bld) [Volume fraction] 42.1 % 37-47 [facility] Hemoglobin measurementOrdere d By: ky Faust on 01-18-2025 Hemoglobin (Bld) [Mass/Vol] 14.2 g/dL 12.0-15.0 [facility] Immature granulocytes/100 WB C Auto (Bld)Ordered By: enriquetaedroymacarena Faust on 01-18-2025 Immature granulocytes/100 WBC (Bld) 0.500 % 0.0-0.9 [facility] Comment on above: IG% - Immature Granu locytes (promyelocytes, myelocytes and metamyelocytes) > 1% indicates that a LEFT SHIFT is Present. Laboratory - Chemistry and C hemistry - challengeOrdered By: Yesika Faust on 01-18-2025 AST [Catalytic activity/Vol] 19 U/L <32 [facility] MCV (mean corpuscular volume ) determinationOrdered By: Yesika Faust on 01-18-2025 MCV (RBC) [Entitic vol] 94.4 fL 81-99 [facility] Mean corpuscular hemoglobin (MCH) determinationOrdered By: ky Faust on 01-18-2025 MCH (RBC) [Entitic mass] 31.8 pg 27.0-32.0 [facility] Mean corpuscular hemoglobin concentration (MCHC) determinationOrdered By: Yesika Faust on 01-18-2025 MCHC (RBC) [Mass/Vol] 33.7 g/dL 32-36 [facility] Mean platelet volume determi nationOrdered By: Yesika Faust on 01-18-2025 Platelet mean volume (Bld) [Entitic vol] 11.6 fL 6.2-12.0 [facility] Monocyte percentageOrdered B y: Yesika Faust on 01-18-2025 Monocytes/100 WBC (Bld) 9.3 % 0-10 [facility] Neutrophil percentageOrdered By: Yesika Faust on 01-18-2025 Neutrophils/100 WBC (Bld) 60.1 % 47-70 [facility] Nucleated red blood cell per centageOrdered By: Yesika Faust on 01-18-2025 Nucleated RBC/100 WBC (Bld) [Ratio] 0 % 0-5 [facility] Platelet countOrdered By: Tad Faust on 01-18-2025 Platelet count TNP [facility] Comment on above: Test not performedPl [...] Platelets LM Ql (Bld) SLT DEC ADEQ [facility] Potassium measurement (mass/ volume)Ordered By: Yesika Faust on 01-18-2025 Potassium (Unsp spec) [Mass/Vol] 5.6 mmol/L High 3.3-5.1 [facility] RBC Auto (Bld) [#/Vol]Ordere d By: Yesika Faust on 01-18-2025 RBC (Bld) [#/Vol] 4.46 10*6/uL 4.2-5.4 [facility] Serum creatinine measurement (mass/volume)Ordered By: Yesika Faust on 01-18-2025 Creatinine [Mass/Vol] 0.73 mg/dL 0.70-1.20 [facility] Serum globulin measurementOr dered By: Yesika Faust on 01-18-2025 Globulin (S) [Mass/Vol] 2.5 g/dL 2.2-4.2 [facility] Serum glucose measurement (m ass/volume)Ordered By: Yesika Faust on 01-18-2025 Glucose [Mass/Vol] 84 mg/dL 70-99 [facility] Serum or plasma alanine vela otransferase (ALT) measurementOrdered By: Yesika Faust on 01-18-2025 ALT [Catalytic activity/Vol] 14 U/L <35 [facility] Serum or plasma albumin madi urement (mass/volume)Ordered By: Yesika Faust on 01-18-2025 Albumin [Mass/Vol] 3.7 g/dL 3.4-4.8 [facility] Serum or plasma alkaline mariaelena sphatase measurementOrdered By: Yesika Faust on 01-18-2025 ALP [Catalytic activity/Vol] 106 U/L High 35-104 [facility] Serum or plasma calcium madi urement (mass/volume)Ordered By: Yesika Faust on 01-18-2025 Calcium [Mass/Vol] 9.1 mg/dL 7.6-11.0 [facility] Serum or plasma urea nitroge n measurement (mass/volume)Ordered By: Yesika Faust on 01-18-2025 Urea nitrogen [Mass/Vol] 27 mg/dL High 4-19 [facility] Sodium levelOrdered By: Jed Faust on 01-18-2025 Sodium [Moles/Vol] 141 mmol/L 133-145 [facility] Total proteinOrdered By: Randall Faust on 01-18-2025 Protein [Mass/Vol] 6.1 g/dL 5.9-8.4 [facility] White blood cell (WBC) count Ordered By: Yesika Faust on 01-18-2025 WBC (Bld) [#/Vol] 6.4 10*3/uL 4.4-11.0 [facility] Bilirubin Test strip Ql (U)O rdered By: Yesika Faust on 01-14-2025 Bilirubin Ql (U) Negative Negative [facility] Ketones Test strip Ql (U)Ord ered By: Yeskia Faust on 01-14-2025 Ketones Ql (U) Negative Negative [facility] Nitrite Test strip Ql (U)Ord ered By: Yesika Faust on 01-14-2025 Nitrite Ql (U) Negative Negative [facility] Protein Test strip Ql (U)Ord ered By: Yesika Faust on 01-14-2025 Protein Ql (U) 30 mg/dl High Negative [facility] Urine clarityOrdered By: Randall Faust on 01-14-2025 Clarity (U) Cloudy Clear [facility] Urine color determinationOrd ered By: Yesika Faust on 01-14-2025 Color (U) Yellow Yellow [facility] Urine cultureOrdered By: Randall Faust on 01-14-2025 Bacteria identified Cx Nom (U) Proteus mirabilis Abnormal [facility] Urine glucose detectionOrder ed By: Yesika Faust on 01-14-2025 Glucose Ql (U) Normal mg/dl Normal [facility] Urine leukocyte esterase det ection by dipstickOrdered By: Yesika Faust on 01-14-2025 Leukocyte esterase Test strip Ql (U) 500 /ul High Negative [facility] Urine pHOrdered By: Fernando Faust on 01-14-2025 pH (U) 7.0 [pH] 5.0 - 8.0 [facility] Urine specific gravity measu rementOrdered By: Yesika Faust on 01-14-2025 Specific gravity (U) [Rel density] 1.010 1.002-1.03 0 [facility] Urine urobilinogen measureme ntOrdered By: Yesika Faust on 01-14-2025 Urobilinogen Ql (U) Normal mg/dl Normal [facility] Absolute lymphocyte countOrd ered By: Yesika Faust on 01-12-2025 Lymphocytes Auto (Unsp spec) [#/Vol] 1.66 10*3/uL 0.83-4.51 [facility] Absolute neutrophil countOrd ered By: Yesika Faust on 01-12-2025 Neutrophils (Bld) [#/Vol] 3.2 10*3/uL 2.0-7.7 [facility] Anion gap in Serum or Plasma Ordered By: Yesika Faust on 01-12-2025 Anion gap [Moles/Vol] 13 mmol/L 5-15 [facility] Automated lymphocyte count a s percentage of total leukocytesOrdered By: Yesika Faust on 01-12-2025 Lymphocytes/100 WBC Auto (Unsp spec) 27.6 % 19-41 [facility] BUN/creatinine ratioOrdered By: Yesika Faust on 01-12-2025 Urea nitrogen/Creatinine [Mass ratio] 36.9 mg/mg High 10-20 [facility] Basophil percentageOrdered B y: Yesika Faust on 01-12-2025 Basophils/100 WBC (Bld) 0.8 % 0-1 [facility] Bilirubin directOrdered By: Yesika Faust on 01-12-2025 Bilirubin.direct [Mass/Vol] 0.11 mg/dL 0.00-0.30 [facility] Bilirubin, totalOrdered By: Yesika Faust on 01-12-2025 Bilirubin [Mass/Vol] 0.24 mg/dL 0.00-1.30 [facility] Carbon dioxide, total [Moles /volume] in Central venous bloodOrdered By: Yesika Faust on 01-12-2025 CO2 [Moles/Vol] 22.3 mmol/L 21.0-32.0 [facility] Chloride assayOrdered By: Tad Faust on 01-12-2025 Chloride [Moles/Vol] 106 mmol/L 98-108 [facility] Eosinophil percentageOrdered By: Yesika Faust on 01-12-2025 Eosinophils/100 WBC (Bld) 7.2 % High 0-5 [facility] Erythrocyte distribution wid th ratioOrdered By: Yesika Faust on 01-12-2025 Erythrocyte distribution width (RBC) [Ratio] 13.5 % 11.6-14.6 [facility] Erythrocyte distribution wid th standard deviationOrdered By: Yesika Faust on 01-12-2025 Erythrocyte distribution width (RBC) [Ratio] 47.9 fl High 35.1-43.9 [facility] Glomerular filtration rate ( GFR) estimation/1.73 sq m using serum, plasma, or whole bOrdered By: Yesika Fauts on 01-12-2025 GFR/1.73 sq M.predicted among non-blacks MDRD (S/P/Bld) [Vol rate/Area] 84 mL/min/{1.73_m2} >60 [facility] Comment on above: mL/min/1.73m2 CKD-EP I Creatinine Equation (2020) Hematocrit Auto (Bld) [Volum e fraction]Ordered By: Yesika Faust on 01-12-2025 Hematocrit (Bld) [Volume fraction] 40.4 % 37-47 [facility] Hemoglobin measurementOrdere d By: Yesika Faust on 01-12-2025 Hemoglobin (Bld) [Mass/Vol] 13.3 g/dL 12.0-15.0 [facility] Immature granulocytes/100 WB C Auto (Bld)Ordered By: ky Faust on 01-12-2025 Immature granulocytes/100 WBC (Bld) 0.300 % 0.0-0.9 [facility] Comment on above: IG% - Immature Granu locytes (promyelocytes, myelocytes and metamyelocytes) > 1% indicates that a LEFT SHIFT is Present. Laboratory - Chemistry and C hemistry - challengeOrdered By: Yesika Faust on 01-12-2025 AST [Catalytic activity/Vol] 16 U/L <32 [facility] MCV (mean corpuscular volume ) determinationOrdered By: Yesika Faust on 01-12-2025 MCV (RBC) [Entitic vol] 97.1 fL 81-99 [facility] Mean corpuscular hemoglobin (MCH) determinationOrdered By: ky Faust on 01-12-2025 MCH (RBC) [Entitic mass] 32.0 pg 27.0-32.0 [facility] Mean corpuscular hemoglobin concentration (MCHC) determinationOrdered By: Yesika Faust on 01-12-2025 MCHC (RBC) [Mass/Vol] 32.9 g/dL 32-36 [facility] Mean platelet volume determi nationOrdered By: Yesika Faust on 01-12-2025 Platelet mean volume (Bld) [Entitic vol] 10.7 fL 6.2-12.0 [facility] Monocyte percentageOrdered B y: Yesika Faust on 01-12-2025 Monocytes/100 WBC (Bld) 10.8 % High 0-10 [facility] Neutrophil percentageOrdered By: Yesika Faust on 01-12-2025 Neutrophils/100 WBC (Bld) 53.3 % 47-70 [facility] Nucleated red blood cell per centageOrdered By: Yesika Faust on 01-12-2025 Nucleated RBC/100 WBC (Bld) [Ratio] 0 % 0-5 [facility] Platelet countOrdered By: Tad Faust on 01-12-2025 Platelets (Bld) [#/Vol] 233 10*3/uL 150-450 [facility] Potassium measurement (mass/ volume)Ordered By: Yesika Faust on 01-12-2025 Potassium (Unsp spec) [Mass/Vol] 4.4 mmol/L 3.3-5.1 [facility] RBC Auto (Bld) [#/Vol]Ordere d By: Yesika Faust on 01-12-2025 RBC (Bld) [#/Vol] 4.16 10*6/uL Low 4.2-5.4 [facility] Serum creatinine measurement (mass/volume)Ordered By: Yesika Faust on 01-12-2025 Creatinine [Mass/Vol] 0.71 mg/dL 0.70-1.20 [facility] Serum globulin measurementOr dered By: Yesika Faust on 01-12-2025 Globulin (S) [Mass/Vol] 2.2 g/dL 2.2-4.2 [facility] Serum glucose measurement (m ass/volume)Ordered By: Yesika Faust on 01-12-2025 Glucose [Mass/Vol] 95 mg/dL 70-99 [facility] Serum or plasma alanine vela otransferase (ALT) measurementOrdered By: Yesika Faust on 01-12-2025 ALT [Catalytic activity/Vol] 12 U/L <35 [facility] Serum or plasma albumin madi urement (mass/volume)Ordered By: Yesika Faust on 01-12-2025 Albumin [Mass/Vol] 3.5 g/dL 3.4-4.8 [facility] Serum or plasma alkaline mariaelena sphatase measurementOrdered By: Yesika Faust on 01-12-2025 ALP [Catalytic activity/Vol] 110 U/L High 35-104 [facility] Serum or plasma calcium madi urement (mass/volume)Ordered By: Yesika Faust on 01-12-2025 Calcium [Mass/Vol] 9.0 mg/dL 7.6-11.0 [facility] Serum or plasma urea nitroge n measurement (mass/volume)Ordered By: Yesika Faust on 01-12-2025 Urea nitrogen [Mass/Vol] 26 mg/dL High 4-19 [facility] Sodium levelOrdered By: Jed jiangbert Christianne on 01-12-2025 Sodium [Moles/Vol] 142 mmol/L 133-145 [facility] Total proteinOrdered By: Randall Faust on 01-12-2025 Protein [Mass/Vol] 5.7 g/dL Low 5.9-8.4 [facility] White blood cell (WBC) count Ordered By: Yesika Faust on 01-12-2025 WBC (Bld) [#/Vol] 6.0 10*3/uL 4.4-11.0 [facility] Absolute lymphocyte countOrd ered By: Yesika Faust on 12-14-2024 Lymphocytes Auto (Unsp spec) [#/Vol] 2.70 10*3/uL 0.83-4.51 [facility] Absolute neutrophil countOrd ered By: Yesika Faust on 12-14-2024 Neutrophils (Bld) [#/Vol] 4.2 10*3/uL 2.0-7.7 [facility] Anion gap in Serum or Plasma Ordered By: Yesika Faust on 12-14-2024 Anion gap [Moles/Vol] 12 mmol/L 5-15 [facility] Automated lymphocyte count a s percentage of total leukocytesOrdered By: Yesika Faust on 12-14-2024 Lymphocytes/100 WBC Auto (Unsp spec) 33.0 % 19-41 [facility] BUN/creatinine ratioOrdered By: Tadenriquetasaeidmacarena Butterfieldkathieaida on 12-14-2024 Urea nitrogen/Creatinine [Mass ratio] 30.0 mg/mg High 10-20 [facility] Basophil percentageOrdered B y: Yesika Scoutandreea on 12-14-2024 Basophils/100 WBC (Bld) 1.0 % 0-1 [facility] Carbon dioxide, total [Moles /volume] in Central venous bloodOrdered By: [facility] Faust on 12-14-2024 CO2 [Moles/Vol] 25.1 mmol/L 21.0-32.0 [facility] Chloride assayOrdered By: enriquetadenae Faust on 12-14-2024 Chloride [Moles/Vol] 103 mmol/L 98-108 [facility] Eosinophil percentageOrdered By: enriquetadenae Scoutkathieaida on 12-14-2024 Eosinophils/100 WBC (Bld) 4.4 % 0-5 [facility] Erythrocyte distribution wid th (RBC) [Ratio]Ordered By: [facility] Butterfieldkathieaida on 12-14-2024 Erythrocyte distribution width (RBC) [Entitic vol] 45.8 fL High 35.1-43.9 [facility] Erythrocyte distribution wid th ratioOrdered By: [facility] Scoutkathieaida on 12-14-2024 Erythrocyte distribution width (RBC) [Ratio] 13.2 % 11.6-14.6 [facility] Erythrocyte distribution wid th standard deviationOrdered By: [facility] Butterfieldkathieaida on 12-14-2024 Erythrocyte distribution width (RBC) [Ratio] 45.8 fl High 35.1-43.9 [facility] GFR/1.73 sq M.predicted giorgio g non-blacks MDRD (S/P/Bld) [Vol rate/Area]Ordered By: Tadky Faust on 12-14-2024 Estimated GFR (MDRD) Non-Af Amer 76 >60 [facility] Comment on above: mL/min/1.73m2 CKD-EP I Creatinine Equation (2020) Glomerular filtration rate ( GFR) estimation/1.73 sq m using serum, plasma, or whole bOrdered By: Yesika Faust on 12-14-2024 GFR/1.73 sq M.predicted among non-blacks MDRD (S/P/Bld) [Vol rate/Area] 76 mL/min/{1.73_m2} >60 [facility] Comment on above: mL/min/1.73m2 CKD-EP I Creatinine Equation (2020) Hematocrit Auto (Bld) [Volum e fraction]Ordered By: Yesika Faust on 12-14-2024 Hematocrit (Bld) [Volume fraction] 46.6 % 37-47 [facility] Hemoglobin measurementOrdere d By: Yesika Faust on 12-14-2024 Hemoglobin (Bld) [Mass/Vol] 15.2 g/dL High 12.0-15.0 [facility] Immature granulocytes/100 WB C Auto (Bld)Ordered By: enriquetaedroymacarena Faust on 12-14-2024 Immature granulocytes/100 WBC (Bld) 0.500 % 0.0-0.9 [facility] Comment on above: IG% - Immature Granu locytes (promyelocytes, myelocytes and metamyelocytes) > 1% indicates that a LEFT SHIFT is Present. Lymphocytes Auto (Unsp spec) [#/Vol]Ordered By: Yesika Faust on 12-14-2024 Lymphocytes (Bld) [#/Vol] 2.70 10*3/uL 0.83-4.51 [facility] Lymphocytes/100 WBC Auto (Un sp spec)Ordered By: Yesika Faust on 12-14-2024 Lymphocytes/100 WBC (Bld) 33.0 % 19-41 [facility] MCV (mean corpuscular volume ) determinationOrdered By: Yesika Faust on 12-14-2024 MCV (RBC) [Entitic vol] 94.7 fL 81-99 [facility] Mean corpuscular hemoglobin (MCH) determinationOrdered By: Yesika Faust on 12-14-2024 MCH (RBC) [Entitic mass] 30.9 pg 27.0-32.0 [facility] Mean corpuscular hemoglobin concentration (MCHC) determinationOrdered By: Yesika Faust on 12-14-2024 MCHC (RBC) [Mass/Vol] 32.6 g/dL 32-36 [facility] Mean platelet volume determi nationOrdered By: Yesika Faust on 12-14-2024 Platelet mean volume (Bld) [Entitic vol] 10.6 fL 6.2-12.0 [facility] Monocyte percentageOrdered B y: Yesika Faust on 12-14-2024 Monocytes/100 WBC (Bld) 9.7 % 0-10 [facility] Neutrophil percentageOrdered By: Yesika Faust on 12-14-2024 Neutrophils/100 WBC (Bld) 51.4 % 47-70 [facility] Nucleated red blood cell per centageOrdered By: Yesika Faust on 12-14-2024 Nucleated RBC/100 WBC (Bld) [Ratio] 0 % 0-5 [facility] Platelet countOrdered By: Tad enriquetadenae Faust on 12-14-2024 Platelets (Bld) [#/Vol] 268 10*3/uL 150-450 [facility] Potassium (Unsp spec) [Mass/ Vol]Ordered By: Yesika Faust on 12-14-2024 Potassium [Moles/Vol] 4.3 mmol/L 3.3-5.1 [facility] Potassium measurement (mass/ volume)Ordered By: Yesika Faust on 12-14-2024 Potassium (Unsp spec) [Mass/Vol] 4.3 mmol/L 3.3-5.1 [facility] RBC Auto (Bld) [#/Vol]Ordere d By: Yesika Faust on 12-14-2024 RBC (Bld) [#/Vol] 4.92 10*6/uL 4.2-5.4 [facility] Serum creatinine measurement (mass/volume)Ordered By: Yesika Faust on 12-14-2024 Creatinine [Mass/Vol] 0.76 mg/dL 0.70-1.20 [facility] Serum glucose measurement (m ass/volume)Ordered By: Yesika Faust on 12-14-2024 Glucose [Mass/Vol] 105 mg/dL High 70-99 [facility] Serum or plasma calcium madi urement (mass/volume)Ordered By: Yesika Faust on 12-14-2024 Calcium [Mass/Vol] 9.7 mg/dL 7.6-11.0 [facility] Serum or plasma urea nitroge n measurement (mass/volume)Ordered By: Yesika Faust on 12-14-2024 Urea nitrogen [Mass/Vol] 23 mg/dL High 4-19 [facility] Sodium levelOrdered By: Jed jiangbert Christianne on 12-14-2024 Sodium [Moles/Vol] 141 mmol/L 133-145 [facility] White blood cell (WBC) count Ordered By: Yesika Faust on 12-14-2024 WBC (Bld) [#/Vol] 8.2 10*3/uL 4.4-11.0 [facility] Absolute lymphocyte countOrd ered By: Yesika Faust on 11-14-2024 Lymphocytes Auto (Unsp spec) [#/Vol] 2.15 10*3/uL 0.83-4.51 [facility] Absolute neutrophil countOrd ered By: Yesika Faust on 11-14-2024 Neutrophils (Bld) [#/Vol] 4.8 10*3/uL 2.0-7.7 [facility] Automated lymphocyte count a s percentage of total leukocytesOrdered By: Yesika Faust on 11-14-2024 Lymphocytes/100 WBC Auto (Unsp spec) 25.7 % 19-41 [facility] BUN/creatinine ratioOrdered By: Yesika Faust on 11-14-2024 Urea nitrogen/Creatinine [Mass ratio] 36.8 mg/mg High 10-20 [facility] Basophil percentageOrdered B y: Yesika Faust on 11-14-2024 Basophils/100 WBC (Bld) 1.0 % 0-1 [facility] Carbon dioxide measurementOr dered By: Yesika Faust on 11-14-2024 CO2 [Moles/Vol] 27.6 mmol/L 22.0-29.0 [facility] Chloride measurementOrdered By: Yesika Faust on 11-14-2024 Chloride [Moles/Vol] 101 mmol/L 96-108 [facility] Eosinophil percentageOrdered By: Yesika Faust on 11-14-2024 Eosinophils/100 WBC (Bld) 7.9 % High 0-5 [facility] Erythrocyte distribution wid th (RBC) [Ratio]Ordered By: Yesika Faust on 11-14-2024 Erythrocyte distribution width (RBC) [Entitic vol] 46.1 fL High 35.1-43.9 [facility] Erythrocyte distribution wid th ratioOrdered By: Jededroymacarena Faust on 11-14-2024 Erythrocyte distribution width (RBC) [Ratio] 12.9 % 11.6-14.6 [facility] Erythrocyte distribution wid th standard deviationOrdered By: Yesika Faust on 11-14-2024 Erythrocyte distribution width (RBC) [Ratio] 46.1 fl High 35.1-43.9 [facility] GFR/1.73 sq M.predicted giorgio g non-blacks MDRD (S/P/Bld) [Vol rate/Area]Ordered By: Yesika Faust on 11-14-2024 Estimated GFR (MDRD) Non-Af Amer 86 >60 [facility] Comment on above: mL/min/1.73m2 CKD-EP I Creatinine Equation (2020) Glomerular filtration rate ( GFR) estimation/1.73 sq m using serum, plasma, or whole bOrdered By: Yesika Faust on 11-14-2024 GFR/1.73 sq M.predicted among non-blacks MDRD (S/P/Bld) [Vol rate/Area] 86 mL/min/{1.73_m2} >60 [facility] Comment on above: mL/min/1.73m2 CKD-EP I Creatinine Equation (2020) Hematocrit Auto (Bld) [Volum e fraction]Ordered By: Yesika Faust on 11-14-2024 Hematocrit (Bld) [Volume fraction] 46.9 % 37-47 [facility] Hemoglobin measurementOrdere d By: Yesika Faust on 11-14-2024 Hemoglobin (Bld) [Mass/Vol] 15.0 g/dL 12.0-15.0 [facility] Immature granulocytes/100 WB C Auto (Bld)Ordered By: Yesika Faust on 11-14-2024 Immature granulocytes/100 WBC (Bld) 0.500 % 0.0-0.9 [facility] Comment on above: IG% - Immature Granu locytes (promyelocytes, myelocytes and metamyelocytes) > 1% indicates that a LEFT SHIFT is Present. Lymphocytes Auto (Unsp spec) [#/Vol]Ordered By: Yesika Faust on 11-14-2024 Lymphocytes (Bld) [#/Vol] 2.15 10*3/uL 0.83-4.51 [facility] Lymphocytes/100 WBC Auto (Un sp spec)Ordered By: Yesika Faust on 11-14-2024 Lymphocytes/100 WBC (Bld) 25.7 % 19-41 [facility] MCV (mean corpuscular volume ) determinationOrdered By: Yesika Faust on 11-14-2024 MCV (RBC) [Entitic vol] 96.9 fL 81-99 [facility] Mean corpuscular hemoglobin (MCH) determinationOrdered By: enriquetaedroymacarena Faust on 11-14-2024 MCH (RBC) [Entitic mass] 31.0 pg 27.0-32.0 [facility] Mean corpuscular hemoglobin concentration (MCHC) determinationOrdered By: enriquetaedroymacarena Faust on 11-14-2024 MCHC (RBC) [Mass/Vol] 32.0 g/dL 32-36 [facility] Mean platelet volume determi nationOrdered By: Yesika Faust on 11-14-2024 Platelet mean volume (Bld) [Entitic vol] 10.4 fL 6.2-12.0 [facility] Monocyte percentageOrdered B y: Yesika Faust on 11-14-2024 Monocytes/100 WBC (Bld) 7.9 % 0-10 [facility] Neutrophil percentageOrdered By: Yesika Faust on 11-14-2024 Neutrophils/100 WBC (Bld) 57.0 % 47-70 [facility] Nucleated red blood cell per centageOrdered By: Yesika Faust on 11-14-2024 Nucleated RBC/100 WBC (Bld) [Ratio] 0 % 0-5 [facility] Platelet countOrdered By: Tad Faust on 11-14-2024 Platelets (Bld) [#/Vol] 269 10*3/uL 150-450 [facility] RBC Auto (Bld) [#/Vol]Ordere d By: Yesika Faust on 11-14-2024 RBC (Bld) [#/Vol] 4.84 10*6/uL 4.2-5.4 [facility] Serum creatinine measurement (mass/volume)Ordered By: Yesika Faust on 11-14-2024 Creatinine [Mass/Vol] 0.65 mg/dL Low 0.70-1.20 [facility] Serum glucose measurement (m ass/volume)Ordered By: Yesika Faust on 11-14-2024 Glucose [Mass/Vol] 97 mg/dL 70-99 [facility] Serum or plasma anion gap de termination (moles/volume)Ordered By: Yesika Faust on 11-14-2024 Anion gap [Moles/Vol] 12 mmol/L 5-15 [facility] Serum or plasma calcium madi urement (mass/volume)Ordered By: Yesika Faust on 11-14-2024 Calcium [Mass/Vol] 9.4 mg/dL 7.6-11.0 [facility] Serum or plasma potassium me asurementOrdered By: Yesika Faust on 11-14-2024 Potassium [Moles/Vol] 4.3 mmol/L 3.3-5.1 [facility] Comment on above: Hemolysis present, R esults could be affected. Serum or plasma sodium measu rement (moles/volume)Ordered By: Yesika Faust on 11-14-2024 Sodium [Moles/Vol] 141 mmol/L 133-145 [facility] Serum or plasma urea nitroge n measurement (mass/volume)Ordered By: Yesika Faust on 11-14-2024 Urea nitrogen [Mass/Vol] 24 mg/dL High 4-19 [facility] White blood cell (WBC) count Ordered By: Yesika Faust on 11-14-2024 WBC (Bld) [#/Vol] 8.4 10*3/uL 4.4-11.0 [facility] Absolute lymphocyte countOrd ered By: Yesika Faust on 10-17-2024 Lymphocytes Auto (Unsp spec) [#/Vol] 1.81 10*3/uL 0.83-4.51 [facility] Absolute neutrophil countOrd ered By: Yesika Faust on 10-17-2024 Neutrophils (Bld) [#/Vol] 3.3 10*3/uL 2.0-7.7 [facility] Automated lymphocyte count a s percentage of total leukocytesOrdered By: Yesika Faust on 10-17-2024 Lymphocytes/100 WBC Auto (Unsp spec) 26.5 % 19-41 [facility] Basophil percentageOrdered B y: Yesika Faust on 10-17-2024 Basophils/100 WBC (Bld) 0.7 % 0-1 [facility] Bilirubin directOrdered By: Yesika Faust on 10-17-2024 Bilirubin.direct [Mass/Vol] 0.09 mg/dL 0.00-0.30 [facility] Bilirubin, totalOrdered By: Yesika Faust on 10-17-2024 Bilirubin [Mass/Vol] 0.20 mg/dL 0.20-1.00 [facility] Comment on above: For patients on eltr ombopag therapy, use of Dimension [place] TBIL is not recommended. Blood urea nitrogen (BUN)/cr eatinine ratioOrdered By: Yesika Faust on 10-17-2024 Urea nitrogen/Creatinine [Mass ratio] 49.3 mg/mg High 10-20 [facility] Carbon dioxide measurementOr dered By: Yesika Faust on 10-17-2024 CO2 [Moles/Vol] 29.0 mmol/L 21.0-32.0 [facility] Chloride measurementOrdered By: Yesika Faust on 10-17-2024 Chloride [Moles/Vol] 106 mmol/L 98-107 [facility] Eosinophil percentageOrdered By: Yesika Faust on 10-17-2024 Eosinophils/100 WBC (Bld) 14.6 % High 0-5 [facility] Erythrocyte distribution wid th (RBC) [Ratio]Ordered By: Yesika Faust on 10-17-2024 Erythrocyte distribution width (RBC) [Entitic vol] 46.3 fL High 35.1-43.9 [facility] Erythrocyte distribution wid th ratioOrdered By: Yesika Faust on 10-17-2024 Erythrocyte distribution width (RBC) [Ratio] 13.0 % 11.6-14.6 [facility] Erythrocyte distribution wid th standard deviationOrdered By: Yesika Faust on 10-17-2024 Erythrocyte distribution width (RBC) [Ratio] 46.3 fl High 35.1-43.9 [facility] Estimated glomerular filtrat ion rate (GFR) AmericanOrdered By: Yesika Faust on 10-17-2024 Estimated GFR (MDRD) Amer 120 mL/min >60 [facility] Comment on above: GFR Calc Glomerular filtration rate ( GFR) estimationOrdered By: Yesika Faust on 10-17-2024 Estimated GFR (MDRD) Non-Af Amer 99 mL/min >60 [facility] Comment on above: Non- GFR Calc GFR/1.73 sq M.predicted among non-blacks MDRD (S/P/Bld) [Vol rate/Area] 99 mL/min/{1.73_m2} >60 [facility] Comment on above: Non- GFR Calc Glucose measurementOrdered B y: Yesika Faust on 10-17-2024 Glucose [Mass/Vol] 86 mg/dL 74-106 [facility] Hematocrit Auto (Bld) [Volum e fraction]Ordered By: Yesika Faust on 10-17-2024 Hematocrit (Bld) [Volume fraction] 41.4 % 37-47 [facility] Hemoglobin measurementOrdere d By: Yesika Faust on 10-17-2024 Hemoglobin (Bld) [Mass/Vol] 13.5 g/dL 12.0-15.0 [facility] Immature granulocytes/100 WB C Auto (Bld)Ordered By: Yesika Faust on 10-17-2024 Immature granulocytes/100 WBC (Bld) 0.400 % 0.0-0.9 [facility] Comment on above: IG% - Immature Granu locytes (promyelocytes, myelocytes and metamyelocytes) > 1% indicates that a LEFT SHIFT is Present. Laboratory - Chemistry and C hemistry - challengeOrdered By: Yesika Faust on 10-17-2024 AST [Catalytic activity/Vol] 12 U/L Low 15-37 [facility] Lymphocytes Auto (Unsp spec) [#/Vol]Ordered By: [facility] on 10-17-2024 Lymphocytes (Bld) [#/Vol] 1.81 10*3/uL 0.83-4.51 [facility] Lymphocytes/100 WBC Auto (Un sp spec)Ordered By: Yesika Faust on 10-17-2024 Lymphocytes/100 WBC (Bld) 26.5 % 19-41 [facility] MCV (mean corpuscular volume ) determinationOrdered By: Yesika Faust on 10-17-2024 MCV (RBC) [Entitic vol] 98.6 fL 81-99 [facility] Mean corpuscular hemoglobin (MCH) determinationOrdered By: enriquetaedroymacarena Faust on 10-17-2024 MCH (RBC) [Entitic mass] 32.1 pg High 27.0-32.0 [facility] Mean corpuscular hemoglobin concentration (MCHC) determinationOrdered By: enriquetaedroymacarena Faust on 10-17-2024 MCHC (RBC) [Mass/Vol] 32.6 g/dL 32-36 [facility] Mean platelet volume determi nationOrdered By: [facility] on 10-17-2024 Platelet mean volume (Bld) [Entitic vol] 10.6 fL 6.2-12.0 [facility] Monocyte percentageOrdered B y: Yesika Faust on 10-17-2024 Monocytes/100 WBC (Bld) 9.5 % 0-10 [facility] Neutrophil percentageOrdered By: ky Faust on 10-17-2024 Neutrophils/100 WBC (Bld) 48.3 % 47-70 [facility] Nucleated red blood cell per centageOrdered By: Yesika Faust on 10-17-2024 Nucleated RBC/100 WBC (Bld) [Ratio] 0 % 0-5 [facility] Platelet countOrdered By: Tad Faust on 10-17-2024 Platelets (Bld) [#/Vol] 232 10*3/uL 150-450 [facility] Potassium measurementOrdered By: Yesika Faust on 10-17-2024 Potassium [Moles/Vol] 4.0 mmol/L 3.5-5.1 [facility] RBC Auto (Bld) [#/Vol]Ordere d By: Yesika Faust on 10-17-2024 RBC (Bld) [#/Vol] 4.20 10*6/uL 4.2-5.4 [facility] Serum anion gap measurementO rdered By: Yesika Faust on 10-17-2024 Anion gap [Moles/Vol] 5 mmol/L 5-15 [facility] Serum globulin measurementOr dered By: Yesika Faust on 10-17-2024 Globulin (S) [Mass/Vol] 3.2 g/dL 2.2-4.2 [facility] Serum or plasma alanine vela otransferase (ALT) measurementOrdered By: Yesika Faust on 10-17-2024 ALT [Catalytic activity/Vol] 19 U/L 13-56 [facility] Serum or plasma albumin madi urement (mass/volume)Ordered By: Yesika Faust on 10-17-2024 Albumin [Mass/Vol] 3.1 g/dL Low 3.2-5.0 [facility] Serum or plasma alkaline mariaelena sphatase measurementOrdered By: Yesika Faust on 10-17-2024 ALP [Catalytic activity/Vol] 108 U/L 45-117 [facility] Serum or plasma calcium madi urement (mass/volume)Ordered By: Yesika Faust on 10-17-2024 Calcium [Mass/Vol] 9.1 mg/dL 8.5-10.1 [facility] Serum or plasma creatinine m easurement (mass/volume)Ordered By: Yesika Faust on 10-17-2024 Creatinine [Mass/Vol] 0.61 mg/dL 0.55-1.02 [facility] Comment on above: The validity of the calculated GFR & GFRAA in patients over 70 years has not been determined. Clinical correlation is essential. Serum or plasma urea nitroge n measurement (mass/volume)Ordered By: Yesika Faust on 10-17-2024 Urea nitrogen [Mass/Vol] 30 mg/dL High 7-18 [facility] Sodium levelOrdered By: Jed jiangannetteaida Faust on 10-17-2024 Sodium [Moles/Vol] 140 mmol/L 136-145 [facility] Total proteinOrdered By: Randall Faust on 10-17-2024 Protein [Mass/Vol] 6.3 g/dL Low 6.4-8.2 [facility] White blood cell (WBC) count Ordered By: Yesika Faust on 10-17-2024 WBC (Bld) [#/Vol] 6.8 10*3/uL 4.4-11.0 [facility] Bilirubin Test strip Ql (U)O rdered By: Yesika Faust on 10-14-2024 Bilirubin Ql (U) Negative Negative [facility] Epithelial cells.squamous LM Ql (Urine sed)Ordered By: Yesika Faust on 10-14-2024 Epithelial cells.squamous LM.HPF (Urine sed) [#/Area] 0 /[HPF] 5-10 [facility] Glucose Ql (U)Ordered By: Tad Faust on 10-14-2024 Urine Glucose (UA) Normal mg/dl Normal [facility] Ketones Test strip Ql (U)Ord ered By: Yesika Faust on 10-14-2024 Ketones Ql (U) Negative Negative [facility] Microscopic analysis of urin e for red blood cells (RBC)Ordered By: Yesika Faust on 10-14-2024 Microscopic analysis of urine for red blood cells (RBC) 0 SEEN /hpf 0-5 [facility] Urine RBC 0 SEEN /hpf 0-5 [facility] Mucus LM Ql (Urine sed)Order ed By: Yesika Faust on 10-14-2024 Mucus Ql (Urine sed) 0 SEEN /hpf [facility] Nitrite Test strip Ql (U)Ord ered By: Yesika Faust on 10-14-2024 Nitrite Ql (U) Positive High Negative [facility] Protein Test strip Ql (U)Ord ered By: Yesika Faust on 10-14-2024 Protein Ql (U) 15 mg/dl High Negative [facility] Squamous epithelial cells de tection in urine sediment by light microscopyOrdered By: Yesika Faust on 10-14-2024 Epithelial cells.squamous LM Ql (Urine sed) 0 SEEN /hpf 5-10 [facility] Triple phosphate crystals LM Ql (Urine sed)Ordered By: Yesika Faust on 10-14-2024 Urine Triple Phosphate Crystals 1+ /hpf [facility] Triple phosphate crystals de tection in urine sediment by light microscopyOrdered By: Yesika Faust on 10-14-2024 Triple phosphate crystals LM Ql (Urine sed) 1+ /hpf [facility] Urine blood detectionOrdered By: Yesika Faust on 10-14-2024 Urine Occult Blood Negative Negative [facility] Urine clarityOrdered By: Randall Faust on 10-14-2024 Clarity (U) Sl. Cloudy Clear [facility] Urine color determinationOrd ered By: Yesika Faust on 10-14-2024 Color (U) Yellow Yellow [facility] Urine cultureOrdered By: Randall Faust on 10-14-2024 Bacteria identified Cx Nom (U) Proteus mirabilis Abnormal [facility] Urine glucose detectionOrder ed By: Yesika Faust on 10-14-2024 Glucose Ql (U) Normal mg/dl Normal [facility] Urine leukocyte esterase det ection by dipstickOrdered By: Yesika Faust on 10-14-2024 Leukocyte esterase Test strip Ql (U) 25 /ul High Negative [facility] Urine pHOrdered By: Fernando Faust on 10-14-2024 pH (U) 9.0 [pH] 5.0 - 8.0 [facility] Urine sediment bacteria coun t by microscopy (number/high power field)Ordered By: Yesika Faust on 10-14-2024 Bacteria LM.HPF (Urine sed) [#/Area] 1 /[HPF] None Seen [facility] Urine specific gravity measu rementOrdered By: Yesika Faust on 10-14-2024 Specific gravity (U) [Rel density] 1.015 1.002-1.03 0 [facility] Urine urobilinogen measureme ntOrdered By: Yesika Faust on 10-14-2024 Urobilinogen Ql (U) Normal mg/dl Normal [facility] Urobilinogen Ql (U)Ordered B y: Yesika Faust on 10-14-2024 Urine Urobilinogen Normal mg/dl Normal [facility] White blood cell countOrdere d By: Yesika Faust on 10-14-2024 Urine WBC 0 SEEN /hpf 0-5 [facility] White blood cell count 0 SEEN /hpf 0-5 [facility] Absolute neutrophil countOrd ered By: Yesika Faust on 09-16-2024 Neutrophils (Bld) [#/Vol] 4.4 10*3/uL 2.0-7.7 [facility] Basophil percentageOrdered B y: Yesika Fauts on 09-16-2024 Basophils/100 WBC (Bld) 0.7 % 0-1 [facility] Blood urea nitrogen (BUN)/cr eatinine ratioOrdered By: Yesika Faust on 09-16-2024 Urea nitrogen/Creatinine [Mass ratio] 40.5 mg/mg High 10-20 [facility] Carbon dioxide measurementOr dered By: Yesika Faust on 09-16-2024 CO2 [Moles/Vol] 28.0 mmol/L 21.0-32.0 [facility] Chloride measurementOrdered By: Yesika Faust on 09-16-2024 Chloride [Moles/Vol] 106 mmol/L 98-107 [facility] Eosinophil percentageOrdered By: Yesika Faust on 09-16-2024 Eosinophils/100 WBC (Bld) 3.0 % 0-5 [facility] Erythrocyte distribution wid th (RBC) [Ratio]Ordered By: Yesika Faust on 09-16-2024 Erythrocyte distribution width (RBC) [Entitic vol] 48.3 fL High 35.1-43.9 [facility] Erythrocyte distribution wid th ratioOrdered By: [facility] on 09-16-2024 Erythrocyte distribution width (RBC) [Ratio] 13.2 % 11.6-14.6 [facility] Estimated glomerular filtrat ion rate (GFR) AmericanOrdered By: enriquetaedroymacarena Faust on 09-16-2024 Estimated GFR (MDRD) Amer 162 mL/min >60 [facility] Comment on above: GFR Calc Glomerular filtration rate ( GFR) estimationOrdered By: enriquetaedroymacarena Faust on 09-16-2024 Estimated GFR (MDRD) Non-Af Amer 134 mL/min >60 [facility] Comment on above: Non- GFR Calc Glucose measurementOrdered B y: Yesika Faust on 09-16-2024 Glucose [Mass/Vol] 89 mg/dL 74-106 [facility] Hematocrit Auto (Bld) [Volum e fraction]Ordered By: ky Faust on 09-16-2024 Hematocrit (Bld) [Volume fraction] 38.9 % 37-47 [facility] Hemoglobin measurementOrdere d By: enriquetaedroymacarena Faust on 09-16-2024 Hemoglobin (Bld) [Mass/Vol] 12.4 g/dL 12.0-15.0 [facility] Immature granulocytes/100 WB C Auto (Bld)Ordered By: ky Faust on 09-16-2024 Immature granulocytes/100 WBC (Bld) 0.300 % 0.0-0.9 [facility] Comment on above: IG% - Immature Granu locytes (promyelocytes, myelocytes and metamyelocytes) > 1% indicates that a LEFT SHIFT is Present. Lymphocytes Auto (Unsp spec) [#/Vol]Ordered By: ky Faust on 09-16-2024 Lymphocytes (Bld) [#/Vol] 1.59 10*3/uL 0.83-4.51 [facility] Lymphocytes/100 WBC Auto (Un sp spec)Ordered By: Yesika Faust on 09-16-2024 Lymphocytes/100 WBC (Bld) 23.1 % 19-41 [facility] MCV (mean corpuscular volume ) determinationOrdered By: Yesika Faust on 09-16-2024 MCV (RBC) [Entitic vol] 98.7 fL 81-99 [facility] Mean corpuscular hemoglobin (MCH) determinationOrdered By: Yesika Faust on 09-16-2024 MCH (RBC) [Entitic mass] 31.5 pg 27.0-32.0 [facility] Mean corpuscular hemoglobin concentration (MCHC) determinationOrdered By: Yesika Faust on 09-16-2024 MCHC (RBC) [Mass/Vol] 31.9 g/dL Low 32-36 [facility] Mean platelet volume determi nationOrdered By: Yesika Faust on 09-16-2024 Platelet mean volume (Bld) [Entitic vol] 10.6 fL 6.2-12.0 [facility] Monocyte percentageOrdered B y: Yesika Faust on 09-16-2024 Monocytes/100 WBC (Bld) 9.6 % 0-10 [facility] Neutrophil percentageOrdered By: Yesika Faust on 09-16-2024 Neutrophils/100 WBC (Bld) 63.3 % 47-70 [facility] Nucleated red blood cell per centageOrdered By: Yesika Faust on 09-16-2024 Nucleated RBC/100 WBC (Bld) [Ratio] 0 % 0-5 [facility] Platelet countOrdered By: Tad Faust on 09-16-2024 Platelets (Bld) [#/Vol] 241 10*3/uL 150-450 [facility] Potassium measurementOrdered By: Yesika Faust on 09-16-2024 Potassium [Moles/Vol] 3.8 mmol/L 3.5-5.1 [facility] RBC Auto (Bld) [#/Vol]Ordere d By: Yesika Faust on 09-16-2024 RBC (Bld) [#/Vol] 3.94 10*6/uL Low 4.2-5.4 [facility] Serum anion gap measurementO rdered By: Yesika Butterfieldkathieaida on 09-16-2024 Anion gap [Moles/Vol] 5 mmol/L 5-15 [facility] Serum or plasma calcium madi urement (mass/volume)Ordered By: Yesika Faust on 09-16-2024 Calcium [Mass/Vol] 8.8 mg/dL 8.5-10.1 [facility] Serum or plasma creatinine m easurement (mass/volume)Ordered By: Yesika Faust on 09-16-2024 Creatinine [Mass/Vol] 0.47 mg/dL Low 0.55-1.02 [facility] Comment on above: The validity of the calculated GFR & GFRAA in patients over 70 years has not been determined. Clinical correlation is essential. Serum or plasma urea nitroge n measurement (mass/volume)Ordered By: Yesika Faust on 09-16-2024 Urea nitrogen [Mass/Vol] 19 mg/dL High 7-18 [facility] Sodium levelOrdered By: Jed denae Christianne on 09-16-2024 Sodium [Moles/Vol] 139 mmol/L 136-145 [facility] White blood cell (WBC) count Ordered By: Yesika Faust on 09-16-2024 WBC (Bld) [#/Vol] 6.9 10*3/uL 4.4-11.0 [facility] Absolute neutrophil countOrd ered By: Yesika Faust on 08-16-2024 Neutrophils (Bld) [#/Vol] 3.4 10*3/uL 2.0-7.7 [facility] Basophil percentageOrdered B y: Yesika Faust on 08-16-2024 Basophils/100 WBC (Bld) 0.7 % 0-1 [facility] Blood urea nitrogen (BUN)/cr eatinine ratioOrdered By: Yesika Faust on 08-16-2024 Urea nitrogen/Creatinine [Mass ratio] 35.8 mg/mg High 10-20 [facility] Carbon dioxide measurementOr dered By: Yesika Faust on 08-16-2024 CO2 [Moles/Vol] 28.0 mmol/L 21.0-32.0 [facility] Chloride measurementOrdered By: Yesika Faust on 08-16-2024 Chloride [Moles/Vol] 110 mmol/L High 98-107 [facility] Eosinophil percentageOrdered By: Yesika Faust on 08-16-2024 Eosinophils/100 WBC (Bld) 3.1 % 0-5 [facility] Erythrocyte distribution wid th (RBC) [Ratio]Ordered By: Yesika Faust on 08-16-2024 Erythrocyte distribution width (RBC) [Entitic vol] 50.8 fL High 35.1-43.9 [facility] Erythrocyte distribution wid th ratioOrdered By: Yesika Faust on 08-16-2024 Erythrocyte distribution width (RBC) [Ratio] 14.0 % 11.6-14.6 [facility] Estimated glomerular filtrat ion rate (GFR) AmericanOrdered By: Yesika Faust on 08-16-2024 Estimated GFR (MDRD) Amer 141 mL/min >60 [facility] Comment on above: GFR Calc Glomerular filtration rate ( GFR) estimationOrdered By: Yesika Faust on 08-16-2024 Estimated GFR (MDRD) Non-Af Amer 116 mL/min >60 [facility] Comment on above: Non- GFR Calc Glucose measurementOrdered B y: Yesika Faust on 08-16-2024 Glucose [Mass/Vol] 85 mg/dL 74-106 [facility] Hematocrit Auto (Bld) [Volum e fraction]Ordered By: Yesika Faust on 08-16-2024 Hematocrit (Bld) [Volume fraction] 41.2 % 37-47 [facility] Hemoglobin measurementOrdere d By: Yesika Faust on 08-16-2024 Hemoglobin (Bld) [Mass/Vol] 12.9 g/dL 12.0-15.0 [facility] Immature granulocytes/100 WB C Auto (Bld)Ordered By: Yesika Faust on 08-16-2024 Immature granulocytes/100 WBC (Bld) 0.300 % 0.0-0.9 [facility] Comment on above: IG% - Immature Granu locytes (promyelocytes, myelocytes and metamyelocytes) > 1% indicates that a LEFT SHIFT is Present. Lymphocytes Auto (Unsp spec) [#/Vol]Ordered By: Yesika Faust on 08-16-2024 Lymphocytes (Bld) [#/Vol] 1.61 10*3/uL 0.83-4.51 [facility] Lymphocytes/100 WBC Auto (Un sp spec)Ordered By: Yesika Faust on 08-16-2024 Lymphocytes/100 WBC (Bld) 27.4 % 19-41 [facility] MCV (mean corpuscular volume ) determinationOrdered By: Yesika Faust on 08-16-2024 MCV (RBC) [Entitic vol] 99.0 fL 81-99 [facility] Mean corpuscular hemoglobin (MCH) determinationOrdered By: Yesika Faust on 08-16-2024 MCH (RBC) [Entitic mass] 31.0 pg 27.0-32.0 [facility] Mean corpuscular hemoglobin concentration (MCHC) determinationOrdered By: Yesika Faust on 08-16-2024 MCHC (RBC) [Mass/Vol] 31.3 g/dL Low 32-36 [facility] Mean platelet volume determi nationOrdered By: Yesika Faust on 08-16-2024 Platelet mean volume (Bld) [Entitic vol] 10.8 fL 6.2-12.0 [facility] Monocyte percentageOrdered B y: Yesika Faust on 08-16-2024 Monocytes/100 WBC (Bld) 10.5 % High 0-10 [facility] Neutrophil percentageOrdered By: Yesika Faust on 08-16-2024 Neutrophils/100 WBC (Bld) 58.0 % 47-70 [facility] Nucleated red blood cell per centageOrdered By: Yesika Faust on 08-16-2024 Nucleated RBC/100 WBC (Bld) [Ratio] 0 % 0-5 [facility] Platelet countOrdered By: Tad robisonsaeidmacarena Faust on 08-16-2024 Platelets (Bld) [#/Vol] 242 10*3/uL 150-450 [facility] Potassium measurementOrdered By: Yesika Butterfieldkathieaida on 08-16-2024 Potassium [Moles/Vol] 3.9 mmol/L 3.5-5.1 [facility] RBC Auto (Bld) [#/Vol]Ordere d By: Yesika Butterfieldkathieaida on 08-16-2024 RBC (Bld) [#/Vol] 4.16 10*6/uL Low 4.2-5.4 [facility] Serum anion gap measurementO rdered By: Yesika Butterfieldkathieaida on 08-16-2024 Anion gap [Moles/Vol] 4 mmol/L Low 5-15 [facility] Serum or plasma calcium madi urement (mass/volume)Ordered By: Yesika Faust on 08-16-2024 Calcium [Mass/Vol] 8.9 mg/dL 8.5-10.1 [facility] Serum or plasma creatinine m easurement (mass/volume)Ordered By: Yesika Faust on 08-16-2024 Creatinine [Mass/Vol] 0.53 mg/dL Low 0.55-1.02 [facility] Comment on above: The validity of the calculated GFR & GFRAA in patients over 70 years has not been determined. Clinical correlation is essential. Serum or plasma urea nitroge n measurement (mass/volume)Ordered By: Yesika Faust on 08-16-2024 Urea nitrogen [Mass/Vol] 19 mg/dL High 7-18 [facility] Sodium levelOrdered By: Jed denae Scoutkathieaida on 08-16-2024 Sodium [Moles/Vol] 142 mmol/L 136-145 [facility] White blood cell (WBC) count Ordered By: Yesika Butterfieldkathieaida on 08-16-2024 WBC (Bld) [#/Vol] 5.9 10*3/uL 4.4-11.0 [facility] Absolute lymphocyte countOrd ered By: Yesika Faust on 11-17-2023 Lymphocytes Auto (Unsp spec) [#/Vol] 1.64 10*3/uL 0.83-4.51 [facility] Automated lymphocyte count a s percentage of total leukocytesOrdered By: Yseika Faust on 11-17-2023 Lymphocytes/100 WBC Auto (Unsp spec) 26.6 % 19-41 [facility] Basophil percentageOrdered B y: Yesika Faust on 11-17-2023 Basophils/100 WBC (Bld) 0.6 % 0-1 [facility] Chloride [Moles/Vol] 109 mmol/L 98-107 [facility] Eosinophils/100 WBC (Bld) 1.8 % 0-5 [facility] Glucose [Mass/Vol] 91 mg/dL 74-106 [facility] Hemoglobin (Bld) [Mass/Vol] 12.9 g/dL 12.0-15.0 [facility] Monocytes/100 WBC (Bld) 9.4 % 0-10 [facility] Neutrophils (Bld) [#/Vol] 3.8 10*3/uL 2.0-7.7 [facility] Neutrophils/100 WBC (Bld) 61.1 % 47-70 [facility] Potassium [Moles/Vol] 3.8 mmol/L 3.5-5.1 [facility] Sodium [Moles/Vol] 140 mmol/L 136-145 [facility] WBC (Bld) [#/Vol] 6.2 10*3/uL 4.4-11.0 [facility] Determination of erythrocyte mean corpuscular volume (MCV)Ordered By: Yesika Faust on 11-17-2023 MCV (RBC) [Entitic vol] 91.8 fL 81-99 [facility] Erythrocyte distribution wid th ratioOrdered By: [facility] Christianne on 11-17-2023 Erythrocyte distribution width (RBC) [Ratio] 14.3 % 11.6-14.6 [facility] Erythrocyte distribution wid th standard deviationOrdered By: enriquetaedroymacarena Faust on 11-17-2023 Erythrocyte distribution width (RBC) [Entitic vol] 48.0 fL 35.1-43.9 [facility] Hematocrit Auto (Bld) [Volum e fraction]Ordered By: Yesika Faust on 11-17-2023 Hematocrit (Bld) [Volume fraction] 39.3 % 37-47 [facility] Immature granulocytes/100 WB C Auto (Bld)Ordered By: Yesika Faust on 11-17-2023 Immature granulocytes/100 WBC (Bld) 0.500 % 0.0-0.9 [facility] Comment on above: IG% - Immature Granu locytes (promyelocytes, myelocytes and metamyelocytes) > 1% indicates that a LEFT SHIFT is Present. Laboratory - Chemistry and C hemistry - challengeOrdered By: Yesika Faust on 11-17-2023 CO2 [Moles/Vol] 28.0 mmol/L 21.0-32.0 [facility] Urea nitrogen/Creatinine [Mass ratio] 18.6 mg/mg 10-20 [facility] Laboratory - Hematology and Cell countsOrdered By: Yesika Faust on 11-17-2023 MCH (RBC) [Entitic mass] 30.1 pg 27.0-32.0 [facility] MCHC (RBC) [Mass/Vol] 32.8 g/dL 32-36 [facility] Nucleated RBC/100 WBC (Bld) [Ratio] 0 % 0-5 [facility] Platelet mean volume (Bld) [Entitic vol] 9.9 fL 6.2-12.0 [facility] Platelets (Bld) [#/Vol] 230 10*3/uL 150-450 [facility] No Panel InformationOrdered By: Yesika Faust on 11-17-2023 Estimated GFR (MDRD) Amer 94 mL/min >60 [facility] Comment on above: GFR Calc Estimated GFR (MDRD) Non-Af Amer 78 mL/min >60 [facility] Comment on above: Non- GFR Calc RBC Auto (Bld) [#/Vol]Ordere d By: Yesika Faust on 11-17-2023 RBC (Bld) [#/Vol] 4.28 10*6/uL 4.2-5.4 [facility] Serum or plasma calcium madi urement (mass/volume)Ordered By: Yesika Faust on 11-17-2023 Calcium [Mass/Vol] 9.2 mg/dL 8.5-10.1 [facility] Serum or plasma creatinine m easurement (mass/volume)Ordered By: Yesika Faust on 11-17-2023 Creatinine [Mass/Vol] 0.75 mg/dL 0.55-1.02 [facility] Comment on above: The validity of the calculated GFR & GFRAA in patients over 70 years has not been determined. Clinical correlation is essential. Serum or plasma urea nitroge n measurement (mass/volume)Ordered By: Yesika Faust on 11-17-2023 Urea nitrogen [Mass/Vol] 14 mg/dL 7-18 [facility] Thin prep Papanicolaou smear with manual screeningOrdered By: enriquetaedroymacarena Faust on 11-17-2023 Thin prep Papanicolaou smear with manual screening 3 5-15 [facility] Absolute lymphocyte countOrd ered By: Yesika Faust on 08-18-2023 Lymphocytes Auto (Unsp spec) [#/Vol] 1.67 10*3/uL 0.83-4.51 [facility] Basophil percentageOrdered B y: Yesika Faust on 08-18-2023 Basophils/100 WBC (Bld) 0.7 % 0-1 [facility] Chloride [Moles/Vol] 109 mmol/L 98-107 [facility] Eosinophils/100 WBC (Bld) 2.8 % 0-5 [facility] Glucose [Mass/Vol] 89 mg/dL 74-106 [facility] Neutrophils (Bld) [#/Vol] 3.1 10*3/uL 2.0-7.7 [facility] Neutrophils/100 WBC (Bld) 56.1 % 47-70 [facility] Potassium [Moles/Vol] 4.0 mmol/L 3.5-5.1 [facility] Sodium [Moles/Vol] 141 mmol/L 136-145 [facility] WBC (Bld) [#/Vol] 5.4 10*3/uL 4.4-11.0 [facility] Blood erythrocytes count (nu mber/volume)Ordered By: Yesika Faust on 12-05-2023 RBC (Bld) [#/Vol] 4.55 10*6/uL 4.2-5.4 [facility] Blood hemoglobin measurement (mass/volume)Ordered By: Yesika Faust on 08-18-2023 Hemoglobin (Bld) [Mass/Vol] 12.9 g/dL 12.0-15.0 [facility] Blood lymphocytes/100 leukoc ytesOrdered By: Yesika Faust on 08-18-2023 Lymphocytes/100 WBC (Bld) 30.8 % 19-41 [facility] Blood monocytes/100 leukocyt esOrdered By: ky Faust on 08-18-2023 Monocytes/100 WBC (Bld) 9.4 % 0-10 [facility] Blood platelet mean volumeOr dered By: Yesika Faust on 08-18-2023 Platelet mean volume (Bld) [Entitic vol] 10.4 fL 6.2-12.0 [facility] Determination of erythrocyte mean corpuscular volume (MCV)Ordered By: Yesika Faust on 08-18-2023 MCV (RBC) [Entitic vol] 89.5 fL 81-99 [facility] Hematocrit Auto (Bld) [Volum e fraction]Ordered By: Yesika Faust on 08-18-2023 Hematocrit (Bld) [Volume fraction] 40.7 % 37-47 [facility] Laboratory - Chemistry and C hemistry - challengeOrdered By: Yesika Faust on 08-18-2023 CO2 [Moles/Vol] 29.0 mmol/L 21.0-32.0 [facility] Urea nitrogen/Creatinine [Mass ratio] 16.6 mg/mg 10-20 [facility] Laboratory - Hematology and Cell countsOrdered By: Yesika Faust on 08-18-2023 Erythrocyte distribution width (RBC) [Entitic vol] 45.5 fL 35.1-43.9 [facility] Erythrocyte distribution width (RBC) [Ratio] 13.9 % 11.6-14.6 [facility] Immature granulocytes/100 WBC (Bld) 0.200 % 0.0-0.9 [facility] Comment on above: IG% - Immature Granu locytes (promyelocytes, myelocytes and metamyelocytes) > 1% indicates that a LEFT SHIFT is Present. MCH (RBC) [Entitic mass] 28.4 pg 27.0-32.0 [facility] Nucleated RBC/100 WBC (Bld) [Ratio] 0 % 0-5 [facility] MCHC Auto (RBC) [Mass/Vol]Or dered By: Yesika Faust on 08-18-2023 MCHC (RBC) [Mass/Vol] 31.7 g/dL 32-36 [facility] No Panel InformationOrdered By: Yesika Faust on 08-18-2023 Estimated GFR (MDRD) Amer 109 mL/min >60 [facility] Comment on above: GFR Calc Estimated GFR (MDRD) Non-Af Amer 90 mL/min >60 [facility] Comment on above: Non- GFR Calc Platelets bldOrdered By: Randall Faust on 08-18-2023 Platelets (Bld) [#/Vol] 221 10*3/uL 150-450 [facility] Serum or plasma calcium madi urement (mass/volume)Ordered By: Yesika Faust on 08-18-2023 Calcium [Mass/Vol] 8.8 mg/dL 8.5-10.1 [facility] Serum or plasma creatinine m easurement (mass/volume)Ordered By: Yesika Faust on 08-18-2023 Creatinine [Mass/Vol] 0.66 mg/dL 0.55-1.02 [facility] Comment on above: The validity of the calculated GFR & GFRAA in patients over 70 years has not been determined. Clinical correlation is essential. Serum or plasma urea nitroge n measurement (mass/volume)Ordered By: Yesika Faust on 08-18-2023 Urea nitrogen [Mass/Vol] 11 mg/dL 7-18 [facility] Thin prep Papanicolaou smear with manual screeningOrdered By: Yesika Faust on 08-18-2023 Thin prep Papanicolaou smear with manual screening 3 5-15 [facility] Absolute lymphocyte countOrd ered By: Yesika Faust on 05-19-2023 Lymphocytes Auto (Unsp spec) [#/Vol] 1.86 10*3/uL 0.83-4.51 [facility] Basophil percentageOrdered B y: Yesika Faust on 05-19-2023 Basophils/100 WBC (Bld) 0.8 % 0-1 [facility] Chloride [Moles/Vol] 107 mmol/L 98-107 [facility] Eosinophils/100 WBC (Bld) 1.5 % 0-5 [facility] Glucose [Mass/Vol] 125 mg/dL 74-106 [facility] Comment on above: Fasting Glucose resu lt from 100 to 125 mg/dL suggests IMPAIRED HOMEOSTASIS per A.D.A. criteria. Neutrophils (Bld) [#/Vol] 3.4 10*3/uL 2.0-7.7 [facility] Neutrophils/100 WBC (Bld) 55.5 % 47-70 [facility] Potassium [Moles/Vol] 3.6 mmol/L 3.5-5.1 [facility] Sodium [Moles/Vol] 139 mmol/L 136-145 [facility] WBC (Bld) [#/Vol] 6.2 10*3/uL 4.4-11.0 [facility] Blood erythrocytes count (nu mber/volume)Ordered By: Yesika Faust on 05-19-2023 RBC (Bld) [#/Vol] 4.24 10*6/uL 4.2-5.4 [facility] Blood hemoglobin measurement (mass/volume)Ordered By: Yesika Faust on 05-19-2023 Hemoglobin (Bld) [Mass/Vol] 11.7 g/dL 12.0-15.0 [facility] Blood lymphocytes/100 leukoc ytesOrdered By: Yesika Faust on 05-19-2023 Lymphocytes/100 WBC (Bld) 30.1 % 19-41 [facility] Blood monocytes/100 leukocyt esOrdered By: Yesika Faust on 05-19-2023 Monocytes/100 WBC (Bld) 11.8 % 0-10 [facility] Blood platelet mean volumeOr dered By: Yesika Faust on 05-19-2023 Platelet mean volume (Bld) [Entitic vol] 10.5 fL 6.2-12.0 [facility] Determination of erythrocyte mean corpuscular volume (MCV)Ordered By: Yesika Faust on 05-19-2023 MCV (RBC) [Entitic vol] 90.3 fL 81-99 [facility] Hematocrit Auto (Bld) [Volum e fraction]Ordered By: Yesika Faust on 05-19-2023 Hematocrit (Bld) [Volume fraction] 38.3 % 37-47 [facility] Laboratory - Chemistry and C hemistry - challengeOrdered By: ky Faust on 05-19-2023 CO2 [Moles/Vol] 29.0 mmol/L 21.0-32.0 [facility] Urea nitrogen/Creatinine [Mass ratio] 21.6 mg/mg 10-20 [facility] Laboratory - Hematology and Cell countsOrdered By: Yesika Faust on 05-19-2023 Erythrocyte distribution width (RBC) [Entitic vol] 50.2 fL 35.1-43.9 [facility] Erythrocyte distribution width (RBC) [Ratio] 15.2 % 11.6-14.6 [facility] Immature granulocytes/100 WBC (Bld) 0.300 % 0.0-0.9 [facility] Comment on above: IG% - Immature Granu locytes (promyelocytes, myelocytes and metamyelocytes) > 1% indicates that a LEFT SHIFT is Present. MCH (RBC) [Entitic mass] 27.6 pg 27.0-32.0 [facility] Nucleated RBC/100 WBC (Bld) [Ratio] 0 % 0-5 [facility] MCHC Auto (RBC) [Mass/Vol]Or dered By: Yesika Faust on 05-19-2023 MCHC (RBC) [Mass/Vol] 30.5 g/dL 32-36 [facility] No Panel InformationOrdered By: Yesika Faust on 05-19-2023 Estimated GFR (MDRD) Amer 74 mL/min >60 [facility] Comment on above: GFR Calc Estimated GFR (MDRD) Non-Af Amer 61 mL/min >60 [facility] Comment on above: Non- GFR Calc Platelets bldOrdered By: Randall sheppard Christianne on 05-19-2023 Platelets (Bld) [#/Vol] 234 10*3/uL 150-450 [facility] Serum or plasma calcium madi urement (mass/volume)Ordered By: Yesika Faust on 05-19-2023 Calcium [Mass/Vol] 8.7 mg/dL 8.5-10.1 [facility] Serum or plasma creatinine m easurement (mass/volume)Ordered By: Yesika Faust on 05-19-2023 Creatinine [Mass/Vol] 0.92 mg/dL 0.55-1.02 [facility] Comment on above: The validity of the calculated GFR & GFRAA in patients over 70 years has not been determined. Clinical correlation is essential. Serum or plasma urea nitroge n measurement (mass/volume)Ordered By: Yesika Faust on 05-19-2023 Urea nitrogen [Mass/Vol] 20 mg/dL 7-18 [facility] Thin prep Papanicolaou smear with manual screeningOrdered By: Yesika Faust on 05-19-2023 Thin prep Papanicolaou smear with manual screening 3 5-15 [facility] Absolute lymphocyte countOrd ered By: Tadenriquetasaeidmacarena Faust on 02-17-2023 Lymphocytes Auto (Unsp spec) [#/Vol] 1.67 10*3/uL 0.83-4.51 [facility] Basophil percentageOrdered B y: Yesika Faust on 02-17-2023 Basophils/100 WBC (Bld) 0.8 % 0-1 [facility] Chloride [Moles/Vol] 109 mmol/L 98-107 [facility] Eosinophils/100 WBC (Bld) 2.8 % 0-5 [facility] Glucose [Mass/Vol] 94 mg/dL 74-106 [facility] Neutrophils (Bld) [#/Vol] 3.9 10*3/uL 2.0-7.7 [facility] Neutrophils/100 WBC (Bld) 60.0 % 47-70 [facility] Potassium [Moles/Vol] 3.7 mmol/L 3.5-5.1 [facility] Sodium [Moles/Vol] 141 mmol/L 136-145 [facility] WBC (Bld) [#/Vol] 6.5 10*3/uL 4.4-11.0 [facility] Blood erythrocytes count (nu mber/volume)Ordered By: Yesika Faust on 02-17-2023 RBC (Bld) [#/Vol] 4.33 10*6/uL 4.2-5.4 [facility] Blood hemoglobin measurement (mass/volume)Ordered By: Yseika Faust on 02-17-2023 Hemoglobin (Bld) [Mass/Vol] 11.4 g/dL 12.0-15.0 [facility] Blood lymphocytes/100 leukoc ytesOrdered By: Yesika Faust on 02-17-2023 Lymphocytes/100 WBC (Bld) 25.9 % 19-41 [facility] Blood monocytes/100 leukocyt esOrdered By: Yesika Faust on 02-17-2023 Monocytes/100 WBC (Bld) 10.2 % 0-10 [facility] Blood platelet mean volumeOr dered By: Yesika Faust on 02-17-2023 Platelet mean volume (Bld) [Entitic vol] 10.6 fL 6.2-12.0 [facility] Determination of erythrocyte mean corpuscular volume (MCV)Ordered By: Yesika Faust on 02-17-2023 MCV (RBC) [Entitic vol] 86.4 fL 81-99 [facility] Hematocrit Auto (Bld) [Volum e fraction]Ordered By: Yesika Faust on 02-17-2023 Hematocrit (Bld) [Volume fraction] 37.4 % 37-47 [facility] Laboratory - Chemistry and C hemistry - challengeOrdered By: Yesika Faust on 02-17-2023 CO2 [Moles/Vol] 28.0 mmol/L 21.0-32.0 [facility] Urea nitrogen/Creatinine [Mass ratio] 16.1 mg/mg 10-20 [facility] Laboratory - Hematology and Cell countsOrdered By: Yesika Faust on 02-17-2023 Erythrocyte distribution width (RBC) [Entitic vol] 56.0 fL 35.1-43.9 [facility] Erythrocyte distribution width (RBC) [Ratio] 17.5 % 11.6-14.6 [facility] Immature granulocytes/100 WBC (Bld) 0.300 % 0.0-0.9 [facility] Comment on above: IG% - Immature Granu locytes (promyelocytes, myelocytes and metamyelocytes) > 1% indicates that a LEFT SHIFT is Present. MCH (RBC) [Entitic mass] 26.3 pg 27.0-32.0 [facility] Nucleated RBC/100 WBC (Bld) [Ratio] 0 % 0-5 [facility] MCHC Auto (RBC) [Mass/Vol]Or dered By: Yesika Faust on 02-17-2023 MCHC (RBC) [Mass/Vol] 30.5 g/dL 32-36 [facility] No Panel InformationOrdered By: Yesika Faust on 02-17-2023 Estimated GFR (MDRD) Amer 106 mL/min >60 [facility] Comment on above: GFR Calc Estimated GFR (MDRD) Non-Af Amer 87 mL/min >60 [facility] Comment on above: Non- GFR Calc Platelets bldOrdered By: Randall Faust on 02-17-2023 Platelets (Bld) [#/Vol] 228 10*3/uL 150-450 [facility] Serum or plasma calcium madi urement (mass/volume)Ordered By: Yesika Faust on 02-17-2023 Calcium [Mass/Vol] 8.8 mg/dL 8.5-10.1 [facility] Serum or plasma creatinine m easurement (mass/volume)Ordered By: Yesika Faust on 02-17-2023 Creatinine [Mass/Vol] 0.68 mg/dL 0.55-1.02 [facility] Comment on above: The validity of the calculated GFR & GFRAA in patients over 70 years has not been determined. Clinical correlation is essential. Serum or plasma urea nitroge n measurement (mass/volume)Ordered By: Yesika Faust on 02-17-2023 Urea nitrogen [Mass/Vol] 11 mg/dL 7-18 [facility] Thin prep Papanicolaou smear with manual screeningOrdered By: Yesika Faust on 02-17-2023 Thin prep Papanicolaou smear with manual screening 4 5-15 [facility] Basophil percentageOrdered B y: Cl Tsang on 01-12-2023 Cholesterol [Mass/Vol] 112 mg/dL <200 [facility] Comment on above: <200 mg/dL Desirable 200-240 mg/dL Borderline >240 mg/dL High Risk Triglyceride [Mass/Vol] 110 mg/dL <199 [facility] Comment on above: The drugs N-Acetylcy steine and Metamizole may falsely depress this assay.Serum Triglycerides Reference Interval Normal <150 mg/dL Borderline high 150 - 199 mg/dL High 200 - 499 mg/dL Very High > or = 500 mg/dL Serum or plasma cholesterol in HDL measurement (mass/volume)Ordered By: Cl Tsang on 01-12-2023 Cholesterol in HDL [Mass/Vol] 50 mg/dL >40 [facility] Comment on above: The drugs N-Acetylcy steine and Metamizole may falsely depress this assay. Reference Range HDL <40 mg/dL Low HDL Cholesterol HDL >or= 60 mg/dL High HDL Cholesterol Serum or plasma cholesterol in VLDL measurement (mass/volume)Ordered By: Cl Tsang on 01-12-2023 Cholesterol in VLDL [Mass/Vol] 22 mg/dL 5-40 [facility] Serum or plasma low density lipoprotein (LDL) cholesterol measurement (mass/volume)Ordered By: Cl Tsang on 01-12-2023 Cholesterol in LDL [Mass/Vol] 40 mg/dL 0-130 [facility] Basophil percentageOrdered B y: Yesika Faust on 11-18-2022 Chloride [Moles/Vol] 108 mmol/L 98-107 [facility] Glucose [Mass/Vol] 114 mg/dL 74-106 [facility] Comment on above: Fasting Glucose resu lt from 100 to 125 mg/dL suggests IMPAIRED HOMEOSTASIS per A.D.A. criteria. Potassium [Moles/Vol] 4.1 mmol/L 3.5-5.1 [facility] Sodium [Moles/Vol] 142 mmol/L 136-145 [facility] WBC (Bld) [#/Vol] 5.6 10*3/uL 4.4-11.0 [facility] Blood erythrocytes count (nu mber/volume)Ordered By: Yesika Faust on 11-18-2022 RBC (Bld) [#/Vol] 3.89 10*6/uL 4.2-5.4 [facility] Blood hemoglobin measurement (mass/volume)Ordered By: Yesika Faust on 11-18-2022 Hemoglobin (Bld) [Mass/Vol] 10.5 g/dL 12.0-15.0 [facility] Blood platelet mean volumeOr dered By: Yesika Faust on 11-18-2022 Platelet mean volume (Bld) [Entitic vol] 10.7 fL 6.2-12.0 [facility] Determination of erythrocyte mean corpuscular volume (MCV)Ordered By: Yesika Faust on 11-18-2022 MCV (RBC) [Entitic vol] 88.4 fL 81-99 [facility] Hematocrit Auto (Bld) [Volum e fraction]Ordered By: Yesika Faust on 11-18-2022 Hematocrit (Bld) [Volume fraction] 34.4 % 37-47 [facility] Laboratory - Chemistry and C hemistry - challengeOrdered By: Yesika Faust on 11-18-2022 CO2 [Moles/Vol] 27.0 mmol/L 21.0-32.0 [facility] Urea nitrogen/Creatinine [Mass ratio] 18.9 mg/mg 10-20 [facility] Laboratory - Hematology and Cell countsOrdered By: Yesika Faust on 11-18-2022 Erythrocyte distribution width (RBC) [Entitic vol] 43.8 fL 35.1-43.9 [facility] Erythrocyte distribution width (RBC) [Ratio] 13.4 % 11.6-14.6 [facility] MCH (RBC) [Entitic mass] 27.0 pg 27.0-32.0 [facility] MCHC Auto (RBC) [Mass/Vol]Or dered By: Yesika Faust on 11-18-2022 MCHC (RBC) [Mass/Vol] 30.5 g/dL 32-36 [facility] No Panel InformationOrdered By: Yesika Faust on 11-18-2022 Estimated GFR (MDRD) Amer 115 mL/min >60 [facility] Comment on above: GFR Calc Estimated GFR (MDRD) Non-Af Amer 95 mL/min >60 [facility] Comment on above: Non- GFR Calc Platelets bldOrdered By: Randall montsemacarena Faust on 11-18-2022 Platelets (Bld) [#/Vol] 247 10*3/uL 150-450 [facility] Serum or plasma calcium madi urement (mass/volume)Ordered By: Yesika Faust on 11-18-2022 Calcium [Mass/Vol] 9.1 mg/dL 8.5-10.1 [facility] Serum or plasma creatinine m easurement (mass/volume)Ordered By: Yesika Faust on 11-18-2022 Creatinine [Mass/Vol] 0.64 mg/dL 0.55-1.02 [facility] Comment on above: The validity of the calculated GFR & GFRAA in patients over 70 years has not been determined. Clinical correlation is essential. Serum or plasma urea nitroge n measurement (mass/volume)Ordered By: Yesika Faust on 11-18-2022 Urea nitrogen [Mass/Vol] 12 mg/dL 7-18 [facility] Thin prep Papanicolaou smear with manual screeningOrdered By: Yesika Faust on 11-18-2022 Thin prep Papanicolaou smear with manual screening 7 5-15 [facility] Absolute lymphocyte countOrd ered By: Yesika Faust on 08-19-2022 Lymphocytes Auto (Unsp spec) [#/Vol] 1.60 10*3/uL 0.83-4.51 [facility] Basophil percentageOrdered B y: Yesika Faust on 08-19-2022 Basophils/100 WBC (Bld) 0.4 % 0-1 [facility] Chloride [Moles/Vol] 105 mmol/L 98-107 [facility] Eosinophils/100 WBC (Bld) 0.2 % 0-5 [facility] Glucose [Mass/Vol] 96 mg/dL 74-106 [facility] Neutrophils (Bld) [#/Vol] 3.3 10*3/uL 2.0-7.7 [facility] Neutrophils/100 WBC (Bld) 59.4 % 47-70 [facility] Potassium [Moles/Vol] 4.0 mmol/L 3.5-5.1 [facility] Sodium [Moles/Vol] 141 mmol/L 136-145 [facility] WBC (Bld) [#/Vol] 5.6 10*3/uL 4.4-11.0 [facility] Blood erythrocytes count (nu mber/volume)Ordered By: Yesika Faust on 08-19-2022 RBC (Bld) [#/Vol] 4.44 10*6/uL 4.2-5.4 [facility] Blood hemoglobin measurement (mass/volume)Ordered By: Yesika Faust on 08-19-2022 Hemoglobin (Bld) [Mass/Vol] 13.0 g/dL 12.0-15.0 [facility] Blood lymphocytes/100 leukoc ytesOrdered By: Yesika Faust on 08-19-2022 Lymphocytes/100 WBC (Bld) 28.8 % 19-41 [facility] Blood monocytes/100 leukocyt esOrdered By: Yesika Faust on 08-19-2022 Monocytes/100 WBC (Bld) 11.0 % 0-10 [facility] Blood platelet mean volumeOr dered By: Yesika Faust on 08-19-2022 Platelet mean volume (Bld) [Entitic vol] 10.7 fL 6.2-12.0 [facility] Determination of erythrocyte mean corpuscular volume (MCV)Ordered By: Yesika Faust on 08-19-2022 MCV (RBC) [Entitic vol] 93.0 fL 81-99 [facility] Hematocrit Auto (Bld) [Volum e fraction]Ordered By: Yesika Faust on 08-19-2022 Hematocrit (Bld) [Volume fraction] 41.3 % 37-47 [facility] Laboratory - Chemistry and C hemistry - challengeOrdered By: Yesika Faust on 08-19-2022 CO2 [Moles/Vol] 29.0 mmol/L 21.0-32.0 [facility] Urea nitrogen/Creatinine [Mass ratio] 19.4 mg/mg 10-20 [facility] Laboratory - Hematology and Cell countsOrdered By: Yesika Faust on 08-19-2022 Erythrocyte distribution width (RBC) [Entitic vol] 44.3 fL 35.1-43.9 [facility] Erythrocyte distribution width (RBC) [Ratio] 12.9 % 11.6-14.6 [facility] Immature granulocytes/100 WBC (Bld) 0.200 % 0.0-0.9 [facility] Comment on above: IG% - Immature Granu locytes (promyelocytes, myelocytes and metamyelocytes) > 1% indicates that a LEFT SHIFT is Present. MCH (RBC) [Entitic mass] 29.3 pg 27.0-32.0 [facility] Nucleated RBC/100 WBC (Bld) [Ratio] 0 % 0-5 [facility] MCHC Auto (RBC) [Mass/Vol]Or dered By: Yesika Faust on 08-19-2022 MCHC (RBC) [Mass/Vol] 31.5 g/dL 32-36 [facility] No Panel InformationOrdered By: Yesika Faust on 08-19-2022 Estimated GFR (MDRD) Amer 99 mL/min >60 [facility] Comment on above: GFR Calc Estimated GFR (MDRD) Non-Af Amer 82 mL/min >60 [facility] Comment on above: Non- GFR Calc Platelets bldOrdered By: Randall Faust on 08-19-2022 Platelets (Bld) [#/Vol] 216 10*3/uL 150-450 [facility] Serum or plasma calcium madi urement (mass/volume)Ordered By: Yesika Faust on 08-19-2022 Calcium [Mass/Vol] 9.4 mg/dL 8.5-10.1 [facility] Serum or plasma creatinine m easurement (mass/volume)Ordered By: Yesika Faust on 08-19-2022 Creatinine [Mass/Vol] 0.72 mg/dL 0.55-1.02 [facility] Comment on above: The validity of the calculated GFR & GFRAA in patients over 70 years has not been determined. Clinical correlation is essential. Serum or plasma urea nitroge n measurement (mass/volume)Ordered By: Yesika Faust on 08-19-2022 Urea nitrogen [Mass/Vol] 14 mg/dL 7-18 [facility] Thin prep Papanicolaou smear with manual screeningOrdered By: Yesika Faust on 08-19-2022 Thin prep Papanicolaou smear with manual screening 7 5-15 [facility] Absolute lymphocyte counton 05-20-2022 Lymphocytes Auto (Unsp spec) [#/Vol] 1.88 10*3/uL 0.83-4.51 [facility] Work Phone: Basophil percentageon 2021 Basophils/100 WBC (Bld) 0.7 % 0-1 [facility] Work Phone: Chloride [Moles/Vol] 111 mmol/L 98-107 [facility] Work Phone: Eosinophils/100 WBC (Bld) 4.0 % 0-5 [facility] Work Phone: Glucose [Mass/Vol] 94 mg/dL 74-106 [facility] Work Phone: Neutrophils (Bld) [#/Vol] 3.3 10*3/uL 2.0-7.7 [facility] Work Phone: Neutrophils/100 WBC (Bld) 55.6 % 47-70 [facility] Work Phone: Potassium [Moles/Vol] 4.1 mmol/L 3.5-5.1 [facility] Work Phone: Sodium [Moles/Vol] 139 mmol/L 136-145 [facility] Work Phone: WBC (Bld) [#/Vol] 6.0 10*3/uL 4.4-11.0 [facility] Work Phone: Blood erythrocytes count (nu mber/volume)on 05-20-2022 RBC (Bld) [#/Vol] 4.01 10*6/uL 4.2-5.4 [facility] Work Phone: Blood hemoglobin measurement (mass/volume)on 05-20-2022 Hemoglobin (Bld) [Mass/Vol] 13.0 g/dL 12.0-15.0 [facility] Work Phone: Blood lymphocytes/100 leukoc yteson 05-20-2022 Lymphocytes/100 WBC (Bld) 31.5 % 19-41 [facility] Work Phone: Blood monocytes/100 leukocyt eson 05-20-2022 Monocytes/100 WBC (Bld) 8.0 % 0-10 [facility] Work Phone: Blood platelet mean volumeon 05-20-2022 Platelet mean volume (Bld) [Entitic vol] 10.3 fL 6.2-12.0 [facility] Work Phone: Determination of erythrocyte mean corpuscular volume (MCV)on 05-20-2022 MCV (RBC) [Entitic vol] 99.3 fL 81-99 [facility] Work Phone: Hematocrit Auto (Bld) [Volum e fraction]on 05-20-2022 Hematocrit (Bld) [Volume fraction] 39.8 % 37-47 [facility] Work Phone: Laboratory - Chemistry and C hemistry - challengeon 05-20-2022 CO2 [Moles/Vol] 17.0 mmol/L 21.0-32.0 [facility] Work Phone: Urea nitrogen/Creatinine [Mass ratio] 13.2 mg/mg 10-20 [facility] Work Phone: Laboratory - Hematology and Cell countson 05-20-2022 Erythrocyte distribution width (RBC) [Entitic vol] 52.0 fL 35.1-43.9 [facility] Work Phone: Erythrocyte distribution width (RBC) [Ratio] 14.4 % 11.6-14.6 [facility] Work Phone: Immature granulocytes/100 WBC (Bld) 0.200 % 0.0-0.9 [facility] Work Phone: Comment on above: IG% - Immature Granu locytes (promyelocytes, myelocytes and metamyelocytes) > 1% indicates that a LEFT SHIFT is Present. MCH (RBC) [Entitic mass] 32.4 pg 27.0-32.0 [facility] Work Phone: Nucleated RBC/100 WBC (Bld) [Ratio] 0 % 0-5 [facility] Work Phone: MCHC Auto (RBC) [Mass/Vol]on 05-20-2022 MCHC (RBC) [Mass/Vol] 32.7 g/dL 32-36 [facility] Work Phone: No Panel Informationon 05-20 Estimated GFR (MDRD) Amer 94 mL/min >60 [facility] Work Phone: Comment on above: GFR Calc Estimated GFR (MDRD) Non-Af Amer 77 mL/min >60 [facility] Work Phone: Comment on above: Non- GFR Calc Platelets bldon 05-20-2022 Platelets (Bld) [#/Vol] 188 10*3/uL 150-450 [facility] Work Phone: Serum or plasma calcium madi urement (mass/volume)on 05-20-2022 Calcium [Mass/Vol] 9.5 mg/dL 8.5-10.1 [facility] Work Phone: Serum or plasma creatinine m easurement (mass/volume)on 05-20-2022 Creatinine [Mass/Vol] 0.76 mg/dL 0.55-1.02 [facility] Work Phone: Comment on above: The validity of the calculated GFR & GFRAA in patients over 70 years has not been determined. Clinical correlation is essential. Serum or plasma urea nitroge n measurement (mass/volume)on 05-20-2022 Urea nitrogen [Mass/Vol] 10 mg/dL 7-18 [facility] Work Phone: Thin prep Papanicolaou smear with manual screeningon 05-20-2022 Thin prep Papanicolaou smear with manual screening 11 5-15 [facility] Work Phone: Bilirubin Test strip Ql (U)o n 03-07-2022 Bilirubin Ql (U) Negative Negative [facility] Work Phone: Ketones Test strip Ql (U)on 03-07-2022 Ketones Ql (U) Negative Negative [facility] Work Phone: Nitrite Test strip Ql (U)on 03-07-2022 Nitrite Ql (U) Positive Negative [facility] Work Phone: Protein Test strip Ql (U)on 03-07-2022 Protein Ql (U) Negative Negative [facility] Work Phone: Urine blood detectionon 02-13 RBC Ql (U) 25 /ul Negative [facility] Work Phone: Urine clarityon 03-07-2022 Clarity (U) Clear Clear [facility] Work Phone: Urine color determinationon 03-07-2022 Color (U) Yellow Yellow [facility] Work Phone: Urine glucose detectionon Glucose Ql (U) Normal mg/dl Normal [facility] Work Phone: Urine leukocyte esterase det ection by dipstickon 03-07-2022 Leukocyte esterase Test strip Ql (U) 500 /ul Negative [facility] Work Phone: Urine pHon 03-07-2022 pH (U) 6.5 [pH] 5.0 - 8.0 [facility] Work Phone: Urine specific gravity measu rementon 03-07-2022 Specific gravity (U) [Rel density] 1.010 1.002-1.03 0 [facility] Work Phone: Urobilinogen Auto test strip Ql (U)on 03-07-2022 Urobilinogen Ql (U) Normal mg/dl Normal [facility] Work Phone: Basophil percentageon 2021 Cholesterol [Mass/Vol] 117 mg/dL <200 [facility] Work Phone: Comment on above: <200 mg/dL Desirable 200-240 mg/dL Borderline >240 mg/dL High Risk Triglyceride [Mass/Vol] 118 mg/dL [facility] Work Phone: Comment on above: The drugs N-Acetylcy steine and Metamizole may falsely depress this assay.Serum Triglycerides Reference Interval Normal <150 mg/dL Borderline high 150 - 199 mg/dL High 200 - 499 mg/dL Very High > or = 500 mg/dL Serum or plasma cholesterol in HDL measurement (mass/volume)on 01-13-2022 Cholesterol in HDL [Mass/Vol] 44 mg/dL [facility] Work Phone: Comment on above: The drugs N-Acetylcy steine and Metamizole may falsely depress this assay. Reference Range HDL <40 mg/dL Low HDL Cholesterol HDL >or= 60 mg/dL High HDL Cholesterol Serum or plasma cholesterol in VLDL measurement (mass/volume)on 01-13-2022 Cholesterol in VLDL [Mass/Vol] 24 mg/dL 5-40 [facility] Work Phone: Serum or plasma low density lipoprotein (LDL) cholesterol measurement (mass/volume)on 01-13-2022 Cholesterol in LDL [Mass/Vol] 49 mg/dL 0-130 [facility] Work Phone: Absolute lymphocyte counton 11-12-2021 Lymphocytes Auto (Unsp spec) [#/Vol] 1.48 10*3/uL 0.83-4.51 [facility] Work Phone: Basophil percentageon 2021 Basophils/100 WBC (Bld) 0.5 % 0-1 [facility] Work Phone: Chloride [Moles/Vol] 108 mmol/L 98-107 [facility] Work Phone: Eosinophils/100 WBC (Bld) 1.4 % 0-5 [facility] Work Phone: Glucose [Mass/Vol] 105 mg/dL 74-106 [facility] Work Phone: Comment on above: Fasting Glucose resu lt from 100 to 125 mg/dL suggests IMPAIRED HOMEOSTASIS per A.D.A. criteria. Neutrophils (Bld) [#/Vol] 3.5 10*3/uL 2.0-7.7 [facility] Work Phone: Neutrophils/100 WBC (Bld) 61.7 % 47-70 [facility] Work Phone: Potassium [Moles/Vol] 3.8 mmol/L 3.5-5.1 [facility] Work Phone: Sodium [Moles/Vol] 139 mmol/L 136-145 [facility] Work Phone: WBC (Bld) [#/Vol] 5.7 10*3/uL 4.4-11.0 [facility] Work Phone: Blood erythrocytes count (nu mber/volume)on 11-12-2021 RBC (Bld) [#/Vol] 4.44 10*6/uL 4.2-5.4 [facility] Work Phone: Blood hemoglobin measurement (mass/volume)on 11-12-2021 Hemoglobin (Bld) [Mass/Vol] 13.7 g/dL 12.0-15.0 [facility] Work Phone: Blood lymphocytes/100 leukoc yteson 11-12-2021 Lymphocytes/100 WBC (Bld) 26.0 % 19-41 [facility] Work Phone: Blood monocytes/100 leukocyt eson 11-12-2021 Monocytes/100 WBC (Bld) 10.0 % 0-10 [facility] Work Phone: Blood platelet mean volumeon 11-12-2021 Platelet mean volume (Bld) [Entitic vol] 10.2 fL 6.2-12.0 [facility] Work Phone: Determination of erythrocyte mean corpuscular volume (MCV)on 11-12-2021 MCV (RBC) [Entitic vol] 89.4 fL 81-99 [facility] Work Phone: Hematocrit Auto (Bld) [Volum e fraction]on 11-12-2021 Hematocrit (Bld) [Volume fraction] 39.7 % 37-47 [facility] Work Phone: Laboratory - Chemistry and C hemistry - challengeon 11-12-2021 CO2 [Moles/Vol] 29.0 mmol/L 21.0-32.0 [facility] Work Phone: Urea nitrogen/Creatinine [Mass ratio] 16.9 mg/mg 10-20 [facility] Work Phone: Laboratory - Hematology and Cell countson 11-12-2021 Erythrocyte distribution width (RBC) [Entitic vol] 41.8 fL 35.1-43.9 [facility] Work Phone: Erythrocyte distribution width (RBC) [Ratio] 12.8 % 11.6-14.6 [facility] Work Phone: Immature granulocytes/100 WBC (Bld) 0.400 % 0.0-0.9 [facility] Work Phone: Comment on above: IG% - Immature Granu locytes (promyelocytes, myelocytes and metamyelocytes) > 1% indicates that a LEFT SHIFT is Present. MCH (RBC) [Entitic mass] 30.9 pg 27.0-32.0 [facility] Work Phone: Nucleated RBC/100 WBC (Bld) [Ratio] 0 % 0-5 [facility] Work Phone: MCHC Auto (RBC) [Mass/Vol]on 11-12-2021 MCHC (RBC) [Mass/Vol] 34.5 g/dL 32-36 [facility] Work Phone: No Panel Informationon 11-12 Estimated GFR (MDRD) Amer 101 mL/min >60 [facility] Work Phone: Comment on above: GFR Calc Estimated GFR (MDRD) Non-Af Amer 84 mL/min >60 [facility] Work Phone: Comment on above: Non- GFR Calc Platelets bldon 11-12-2021 Platelets (Bld) [#/Vol] 194 10*3/uL 150-450 [facility] Work Phone: Serum or plasma calcium madi urement (mass/volume)on 11-12-2021 Calcium [Mass/Vol] 9.5 mg/dL 8.5-10.1 [facility] Work Phone: Serum or plasma creatinine m easurement (mass/volume)on 11-12-2021 Creatinine [Mass/Vol] 0.71 mg/dL 0.55-1.02 [facility] Work Phone: Comment on above: The validity of the calculated GFR & GFRAA in patients over 70 years has not been determined. Clinical correlation is essential. Serum or plasma urea nitroge n measurement (mass/volume)on 11-12-2021 Urea nitrogen [Mass/Vol] 12 mg/dL 7-18 [facility] Work Phone: Thin prep Papanicolaou smear with manual screeningon 11-12-2021 Thin prep Papanicolaou smear with manual screening 2 5-15 [facility] Work Phone: XR SPINE CERVICAL 1 [...] Date: 07/04/2019 10:22:47 AM Ordering Provider:Dc Mota [facility] ([place]) .GFRon 06-09-2019 GFR >60 Normal [facility] ([place]) Comment on above: Result Comment: [...] #### C BC, DIFF, MORPH, BMP, GFR ####[place] [address] GFR Non- >60 [facility] ([place] Comment on above: Result Comment: [...] #### C BC, DIFF, MORPH, BMP, GFR ####[place] [address] .Manual Diffon 06-09-2019 Basophil %, Manual 1.0 % Normal 0.0-2.5 [facility] ([place]) Comment on above: Performed By: #### C BC, DIFF, MORPH, BMP, GFR ####[place] [address] Basophil, Abs Manual 0.08 10 3/mcL Normal 0.00-0.27 [facility] ([place]) Comment on above: Performed By: #### C BC, DIFF, MORPH, BMP, GFR ####[place] [address] Cells Counted 100 Normal [facility] ([place]) Comment on above: Performed By: #### C BC, DIFF, MORPH, BMP, GFR ####[address] [address] Eosinophil %, Manual 2.0 % Normal 0.0-6.0 [facility] ([place]) Comment on above: Performed By: #### C BC, DIFF, MORPH, BMP, GFR ####[address] [address] Eosinophil, Abs Manual 0.16 10 3/mcL Normal 0.00-0.65 [facility] ([place] Comment on above: Performed By: #### C BC, DIFF, MORPH, BMP, GFR ####[address] [address] Lymphocyte %, Manual 9.0 % Low 20.0-40.0 [facility] ([place]) Comment on above: Performed By: #### C BC, DIFF, MORPH, BMP, GFR ####[address] [address] Lymphocyte, Abs Manual 0.72 10 3/mcL Low 0.90-4.32 [facility] ([place] Comment on above: Performed By: #### C BC, DIFF, MORPH, BMP, GFR ####[address] [address] Monocyte %, Manual 6.0 % Normal 2.0-13.0 [facility] ([place]) Comment on above: Performed By: #### C BC, DIFF, MORPH, BMP, GFR ####[address] [address] Monocyte, Abs Manual 0.48 10 3/mcL Normal 0.09-1.40 [facility] ([place]) Comment on above: Performed By: #### C BC, DIFF, MORPH, BMP, GFR ####[address] [address] Myelocyte 1.0 % Normal [facility] ([place] Comment on above: Performed By: #### C BC, DIFF, MORPH, BMP, GFR ####[address] [address] Neutrophil %, Manual 81.0 % High 50.0-75.0 [facility] ([place]) Comment on above: Performed By: #### C BC, DIFF, MORPH, BMP, GFR ####[place] [address] Neutrophil, Abs Manual 6.48 10 3/mcL Normal 2.25-8.10 [facility] ([place] Comment on above: Performed By: #### C BC, DIFF, MORPH, BMP, GFR ####[place] [address] .Morphon 06-09-2019 Platelets (Bld) [#/Vol] Normal [facility] ([place] Comment on above: Performed By: #### C BC, DIFF, MORPH, BMP, GFR ####[place] [address] Polychrom Slight [facility] ([place] Comment on above: Performed By: #### C BC, DIFF, MORPH, BMP, GFR ####[place] [address] BMPon 06-09-2019 Creatinine [Mass/Vol] 0.75 mg/dL Normal 0.50-1.20 [facility] ([place]) Comment on above: Performed By: #### C BC, DIFF, MORPH, BMP, GFR ####[place] [address] Urea nitrogen/Creatinine [Mass ratio] 18.7 ratio Normal 10.0-22.0 [facility] ([place] Comment on above: Performed By: #### C BC, DIFF, MORPH, BMP, GFR ####[place] [address] Calcium [Mass/Vol] 8.2 mg/dL Low 8.4-10.1 [facility] ([place]) Comment on above: Performed By: #### C BC, DIFF, MORPH, BMP, GFR ####[place] [address] Chloride [Moles/Vol] 106 mmol/L Normal 98-110 [facility] ([place]) Comment on above: Performed By: #### C BC, DIFF, MORPH, BMP, GFR ####[address] [address] CO2 [Moles/Vol] 18 mmol/L Low 22-32 [facility] ([place]) Comment on above: Performed By: #### C BC, DIFF, MORPH, BMP, GFR ####[place] [address] Electrolyte Balance 16.0 mEq/L High 4.0-15.0 [facility] ([place]) Comment on above: Performed By: #### C BC, DIFF, MORPH, BMP, GFR ####[place] [address] Glucose [Mass/Vol] 109 mg/dL Normal 82-115 [facility] ([place]) Comment on above: Performed By: #### C BC, DIFF, MORPH, BMP, GFR ####[place] [address] Potassium [Moles/Vol] 3.8 mmol/L Normal 3.5-5.0 [facility] ([place]) Comment on above: Performed By: #### C BC, DIFF, MORPH, BMP, GFR ####[place] [address] Sodium [Moles/Vol] 140 mmol/L Normal 136-145 [facility] ([place]) Comment on above: Performed By: #### C BC, DIFF, MORPH, BMP, GFR ####[place] [address] Urea nitrogen [Mass/Vol] 14.0 mg/dL Normal 8.0-22.0 [facility] ([place] Comment on above: Performed By: #### C BC, DIFF, MORPH, BMP, GFR ####[address] [address] CBCon 06-09-2019 Platelet mean volume (Bld) [Entitic vol] 8.6 fL Normal 6.6-10.5 [facility] ([place]) Comment on above: Performed By: #### C BC, DIFF, MORPH, BMP, GFR ####[address] [address] Platelets (Bld) [#/Vol] 229 10 3/mcL Normal 150-450 [facility] ([place] Comment on above: Performed By: #### C BC, DIFF, MORPH, BMP, GFR ####[place] [id number] WBC (Bld) [#/Vol] 8.00 10 3/mcL Normal 4.50-10.80 [facility] ([place]) Comment on above: Performed By: #### C BC, DIFF, MORPH, BMP, GFR ####[place] [address] Erythrocyte distribution width (RBC) [Ratio] 13.8 % Normal 11.5-15.5 [facility] ([place] Comment on above: Performed By: #### C BC, DIFF, MORPH, BMP, GFR ####[place] [address] Hematocrit (Bld) [Volume fraction] 26.6 % Low 34.0-46.0 [facility] ([place] Comment on above: Performed By: #### C BC, DIFF, MORPH, BMP, GFR ####[place] [address] Hemoglobin (Bld) [Mass/Vol] 9.1 G/dL Low 12.0-16.0 [facility] ([place] Comment on above: Performed By: #### C BC, DIFF, MORPH, BMP, GFR ####[place] [id number] MCH (RBC) [Entitic mass] 30.1 pg Normal 27.0-33.0 [facility] ([place] Comment on above: Performed By: #### C BC, DIFF, MORPH, BMP, GFR ####[place] [id number] MCHC (RBC) [Mass/Vol] 34.3 G/dL Normal 32.0-36.0 [facility] ([place]) Comment on above: Performed By: #### C BC, DIFF, MORPH, BMP, GFR ####[address] [address] MCV (RBC) [Entitic vol] 87.9 fL Normal 80.0-99.0 [facility] ([place] Comment on above: Performed By: #### C BC, DIFF, MORPH, BMP, GFR ####[address] [address] RBC (Bld) [#/Vol] 3.03 10 6/mcL Low 4.10-5.30 [facility] ([place]) Comment on above: Performed By: #### C BC, DIFF, MORPH, BMP, GFR ####[address] [address] XR CHEST 2 VIEWSon 9 XR CHEST [...] AM Sign Date: 06/09/2019 7:22:18 AM Normal [facility] ([place]) .GFRon 06-08-2019 GFR >60 Normal [facility] ([place]) Comment on above: Result Comment: [...] meters Performed By: #### B MP, GFR ####[address] [address] GFR Non- >60 Normal [facility] ([place] Comment on above: Result Comment: [...] meters Performed By: #### B MP, GFR ####[address] [address] BMPon 06-08-2019 Creatinine [Mass/Vol] 0.60 mg/dL Normal 0.50-1.20 [facility] ([place]) Comment on above: Performed By: #### B MP, GFR ####[address] [address] Urea nitrogen/Creatinine [Mass ratio] 21.7 ratio Normal 10.0-22.0 [facility] ([place] Comment on above: Performed By: #### B MP, GFR ####[address] [address] Calcium [Mass/Vol] 7.9 mg/dL Low 8.4-10.1 [facility] ([place]) Comment on above: Performed By: #### B MP, GFR ####[address] [address] Chloride [Moles/Vol] 107 mmol/L Normal 98-110 [facility] ([place]) Comment on above: Performed By: #### B MP, GFR ####[address] [address] CO2 [Moles/Vol] 28 mmol/L Normal 22-32 [facility] ([place]) Comment on above: Performed By: #### B MP, GFR ####[address] [address] Electrolyte Balance 8.0 mEq/L Normal 4.0-15.0 [facility] ([place]) Comment on above: Performed By: #### B MP, GFR ####[address] [address] Glucose [Mass/Vol] 115 mg/dL Normal 82-115 [facility] ([place] Comment on above: Performed By: #### B MP, GFR ####[place] [address] Potassium [Moles/Vol] 3.7 mmol/L Normal 3.5-5.0 [facility] ([place] Comment on above: Performed By: #### B MP, GFR ####[place] [address] Sodium [Moles/Vol] 143 mmol/L Normal 136-145 [facility] ([place] Comment on above: Performed By: #### B MP, GFR ####[place] [address] Urea nitrogen [Mass/Vol] 13.0 mg/dL Normal 8.0-22.0 [facility] [place] Comment on above: Performed By: #### B MP, GFR ####[place] [address] XR CHEST 2 VIEWSon 9 XR CHEST [...] AM Sign Date: 06/08/2019 6:29:24 AM Normal [facility] ([place]) .Auto Diffon 06-07-2019 Ammonia (P) [Mass/Vol] 0.40 10 3/mcL Normal 0.09-1.40 [facility] [place] Comment on above: Performed By: #### C BC, ADIFF, ANEU, CMP, GFR ####[address] [address] Basophils (Bld) [#/Vol] 0.00 10 3/mcL Normal 0.00-0.27 [facility] ([place] Comment on above: Performed By: #### C BC, ADIFF, ANEU, CMP, GFR ####[address] [address] Basophils/100 WBC (Bld) 0.4 % Normal 0.0-2.5 [facility] ([place] Comment on above: Performed By: #### C BC, ADIFF, ANEU, CMP, GFR ####[address] [address] Eosinophils (Bld) [#/Vol] 0.30 10 3/mcL Normal 0.00-0.65 [facility] ([place] Comment on above: Performed By: #### C BC, ADIFF, ANEU, CMP, GFR ####[address] [address] Eosinophils/100 WBC (Bld) 6.6 % High 0.0-6.0 [facility] ([place] Comment on above: Performed By: #### C BC, ADIFF, ANEU, CMP, GFR ####[address] [address] Lymphocytes (Bld) [#/Vol] 1.00 10 3/mcL Normal 0.90-4.32 [facility] ([place] Comment on above: Performed By: #### C BC, ADIFF, ANEU, CMP, GFR ####[address] [address] Lymphocytes/100 WBC (Bld) 19.0 % Low 20.0-40.0 [facility] ([place] Comment on above: Performed By: #### C BC, ADIFF, ANEU, CMP, GFR ####[address] [address] Monocytes/100 WBC (Bld) 7.4 % Normal 2.0-13.0 [facility] ([place]) Comment on above: Performed By: #### C BC, ADIFF, ANEU, CMP, GFR ####[address] [address] Neutrophils/100 WBC (Bld) 66.6 % Normal 50.0-75.0 [facility] ([place] Comment on above: Performed By: #### C BC, ADIFF, ANEU, CMP, GFR ####[address] [address] Ammonia (P) [Mass/Vol] 0.50 10 3/mcL Normal 0.09-1.40 [facility] ([place] Comment on above: Performed By: #### C BC, ADIFF, ANEU, BMP, GFR ####[address] [address] Basophils (Bld) [#/Vol] 0.00 10 3/mcL Normal 0.00-0.27 [facility] ([place] Comment on above: Performed By: #### C BC, ADIFF, ANEU, BMP, GFR ####[address] [address] Basophils/100 WBC (Bld) 0.7 % Normal 0.0-2.5 [facility] ([place] Comment on above: Performed By: #### C BC, ADIFF, ANEU, BMP, GFR ####[address] [address] Eosinophils (Bld) [#/Vol] 0.10 10 3/mcL Normal 0.00-0.65 [facility] ([place] Comment on above: Performed By: #### C BC, ADIFF, ANEU, BMP, GFR ####[address] [address] Eosinophils/100 WBC (Bld) 1.8 % Normal 0.0-6.0 [facility] [place] Comment on above: Performed By: #### C BC, ADIFF, ANEU, BMP, GFR ####[address] [address] Lymphocytes (Bld) [#/Vol] 2.10 10 3/mcL Normal 0.90-4.32 [facility] ([place] Comment on above: Performed By: #### C BC, ADIFF, ANEU, BMP, GFR ####[address] [address] Lymphocytes/100 WBC (Bld) 32.8 % Normal 20.0-40.0 [facility] ([place] Comment on above: Performed By: #### C BC, ADIFF, ANEU, BMP, GFR ####[address] [address] Monocytes/100 WBC (Bld) 7.1 % Normal 2.0-13.0 [facility] ([place] Comment on above: Performed By: #### C BC, ADIFF, ANEU, BMP, GFR ####[address] [address] Neutrophils/100 WBC (Bld) 57.6 % Normal 50.0-75.0 [facility] ([place] Comment on above: Performed By: #### C BC, ADIFF, ANEU, BMP, GFR ####[address] [address] Ammonia (P) [Mass/Vol] 0.60 10 3/mcL Normal 0.09-1.40 [facility] ([place] Comment on above: Performed By: #### C BC, ADIFF, ANEU #### [address] [address] #### BMP, GFR #### [address] [address] Basophils (Bld) [#/Vol] 0.00 10 3/mcL Normal 0.00-0.27 [facility] ([place] Comment on above: Performed By: #### C BC, ADIFF, ANEU #### [address] [address] #### BMP, GFR #### [address] [address] Basophils/100 WBC (Bld) 0.5 % Normal 0.0-2.5 [facility] ([place]) Comment on above: Performed By: #### C BC, ADIFF, ANEU #### [address] [address] #### BMP, GFR #### [address] [address] Eosinophils (Bld) [#/Vol] 0.10 10 3/mcL Normal 0.00-0.65 [facility] ([place] Comment on above: Performed By: #### C BC, ADIFF, ANEU #### [place] [address] #### BMP, GFR #### [address] [address] Eosinophils/100 WBC (Bld) 2.2 % Normal 0.0-6.0 [facility] ([place] Comment on above: Performed By: #### C BC, ADIFF, ANEU #### [place] [address] #### BMP, GFR #### [address] [address] Lymphocytes (Bld) [#/Vol] 0.80 10 3/mcL Low 0.90-4.32 [facility] ([place]) Comment on above: Performed By: #### C BC, ADIFF, ANEU #### [address] [address] #### BMP, GFR #### [address] [address] Lymphocytes/100 WBC (Bld) 12.3 % Low 20.0-40.0 [facility] ([place]) Comment on above: Performed By: #### C BC, ADIFF, ANEU #### [place] [address] #### BMP, GFR #### [facility] [address] [place] [address] Monocytes/100 WBC (Bld) 9.5 % Normal 2.0-13.0 [facility] ([place] Comment on above: Performed By: #### C BC, ADIFF, ANEU #### [address] [address] #### BMP, GFR #### [facility] [address] [place] [address] Neutrophils/100 WBC (Bld) 75.5 % High 50.0-75.0 [facility] ([place] Comment on above: Performed By: #### C BC, ADIFF, ANEU #### [address] [address] #### BMP, GFR #### [facility] [address] [place] [address] .GFRon 06-07-2019 GFR >60 Normal [facility] ([place]) Comment on above: Result Comment: [...] #### C BC, ADIFF, ANEU, CMP, GFR ####[facility] [place] [address] GFR Non- >60 Normal [facility] ([place] Comment on above: Result Comment: [...] meters Performed By: #### C STEPHANIE KRISHNAMURTHY, ANEU, CMP, GFR ####[place] [id number] GFR >60 Normal [facility] ([place] Comment on above: Result Comment: [...] meters Performed By: #### C STEPHANIE KRISHNAMURTHY, ANEU, BMP, GFR ####[place] [address] GFR Non- >60 Normal [facility] ([place] Comment on above: Result Comment: [...] meters Performed By: #### C STEPHANIE KRISHNAMURTHY, ANEU, BMP, GFR ####[address] [address] GFR Non- >60 Normal [facility] ([place] Comment on above: Result Comment: [...] #### C BC, ADIFF, ANEU, BMP, GFR ####[place] [address] GFR >60 Normal [facility] ([place] Comment on above: Result Comment: [...] #### C BC, ADIFF, ANEU, BMP, GFR ####[address] [address] .NEUABSon 06-07-2019 Neutrophils (Bld) [#/Vol] 3.40 10 3/mcL Normal 2.25-8.10 [facility] ([place] Comment on above: Performed By: #### C BC, ADIFF, ANEU, CMP, GFR ####[address] [address] Neutrophils (Bld) [#/Vol] 3.80 10 3/mcL Normal 2.25-8.10 [facility] ([place] Comment on above: Performed By: #### C BC, ADIFF, ANEU, BMP, GFR ####[address] [address] Neutrophils (Bld) [#/Vol] 5.00 10 3/mcL Normal 2.25-8.10 [facility] ([place] Comment on above: Performed By: #### C BC, ADIFF, ANEU #### [address] [address] #### BMP, GFR #### [address] [address] BMPon 06-07-2019 Creatinine [Mass/Vol] 0.66 mg/dL Normal 0.50-1.20 [facility] ([place] Comment on above: Performed By: #### C BC, ADIFF, ANEU, BMP, GFR ####[address] [address] Urea nitrogen/Creatinine [Mass ratio] 16.7 ratio Normal 10.0-22.0 [facility] ([place] Comment on above: Performed By: #### C BC, ADIFF, ANEU, BMP, GFR ####[address] [address] Calcium [Mass/Vol] 7.8 mg/dL Low 8.4-10.1 [facility] ([place]) Comment on above: Performed By: #### C BC, ADIFF, ANEU, BMP, GFR ####[address] [address] Chloride [Moles/Vol] 106 mmol/L Normal 98-110 [facility] ([place]) Comment on above: Performed By: #### C BC, ADIFF, ANEU, BMP, GFR ####[address] [address] CO2 [Moles/Vol] 26 mmol/L Normal 22-32 [facility] ([place]) Comment on above: Performed By: #### C BC, ADIFF, ANEU, BMP, GFR ####[address] [address] Electrolyte Balance 9.0 mEq/L Normal 4.0-15.0 [facility] ([place] Comment on above: Performed By: #### C BC, ADIFF, ANEU, BMP, GFR ####[address] [address] Glucose [Mass/Vol] 101 mg/dL Normal 82-115 [facility] ([place] Comment on above: Performed By: #### C BC, ADIFF, ANEU, BMP, GFR ####[address] [address] Potassium [Moles/Vol] 3.6 mmol/L Normal 3.5-5.0 [facility] ([place] Comment on above: Performed By: #### C BC, ADIFF, ANEU, BMP, GFR ####[address] [address] Sodium [Moles/Vol] 141 mmol/L Normal 136-145 [facility] ([place] Comment on above: Performed By: #### C BC, ADIFF, ANEU, BMP, GFR ####[address] [address] Urea nitrogen [Mass/Vol] 11.0 mg/dL Normal 8.0-22.0 [facility] ([place] Comment on above: Performed By: #### C BC, ADIFF, ANEU, BMP, GFR ####[address] [address] Calcium [Mass/Vol] 8.4 mg/dL Normal 8.4-10.1 [facility] ([place] Comment on above: Performed By: #### C BC, ADIFF, ANEU, BMP, GFR ####[address] [address] Chloride [Moles/Vol] 106 mmol/L Normal 98-110 [facility] ([place] Comment on above: Performed By: #### C BC, ADIFF, ANEU, BMP, GFR ####[address] [address] CO2 [Moles/Vol] 25 mmol/L Normal 22-32 [facility] ([place]) Comment on above: Performed By: #### C BC, ADIFF, ANEU, BMP, GFR ####[address] [address] Creatinine [Mass/Vol] 0.73 mg/dL Normal 0.50-1.20 [facility] ([place]) Comment on above: Performed By: #### C BC, ADIFF, ANEU, BMP, GFR ####[address] [address] Electrolyte Balance 9.0 mEq/L Normal 4.0-15.0 [facility] ([place] Comment on above: Performed By: #### C BC, ADIFF, ANEU, BMP, GFR ####[address] [address] Glucose [Mass/Vol] 230 mg/dL High 82-115 [facility] ([place] Comment on above: Performed By: #### C BC, ADIFF, ANEU, BMP, GFR ####[address] [address] Potassium [Moles/Vol] 3.8 mmol/L Normal 3.5-5.0 [facility] ([place] Comment on above: Performed By: #### C BC, ADIFF, ANEU, BMP, GFR ####[address] [address] Sodium [Moles/Vol] 140 mmol/L Normal 136-145 [facility] ([place] Comment on above: Performed By: #### C BC, ADIFF, ANEU, BMP, GFR ####[address] [address] Urea nitrogen [Mass/Vol] 16.0 mg/dL Normal 8.0-22.0 [facility] ([place] Comment on above: Performed By: #### C BC, ADIFF, ANEU, BMP, GFR ####[address] [address] Urea nitrogen/Creatinine [Mass ratio] 21.9 ratio Normal 10.0-22.0 [facility] ([place] Comment on above: Performed By: #### C BC, ADIFF, ANEU, BMP, GFR ####[place] [address] CBCon 06-07-2019 Erythrocyte distribution width (RBC) [Ratio] 12.5 % Normal 11.5-15.5 [facility] ([place] Comment on above: Performed By: #### C BC, ADIFF, ANEU, CMP, GFR ####[place] [address] Hematocrit (Bld) [Volume fraction] 35.3 % Low 40.0-52.0 [facility] ([place] Comment on above: Performed By: #### C BC, ADIFF, ANEU, CMP, GFR ####[place] [address] Hemoglobin (Bld) [Mass/Vol] 12.0 G/dL Low 13.0-17.5 [facility] ([place] Comment on above: Performed By: #### C BC, ADIFF, ANEU, CMP, GFR ####[place] [address] MCH (RBC) [Entitic mass] 32.0 pg Normal 27.0-33.0 [facility] ([place] Comment on above: Performed By: #### C BC, ADIFF, ANEU, CMP, GFR ####[place] [address] MCHC (RBC) [Mass/Vol] 34.1 G/dL Normal 32.0-36.0 [facility] ([place] Comment on above: Performed By: #### C BC, ADIFF, ANEU, CMP, GFR ####[place] [address] MCV (RBC) [Entitic vol] 94.1 fL Normal 81.0-100.0 [facility] ([place] Comment on above: Performed By: #### C BC, ADIFF, ANEU, CMP, GFR ####[place] [address] Platelet mean volume (Bld) [Entitic vol] 6.9 fL Normal 6.4-10.5 [facility] ([place] Comment on above: Performed By: #### C BC, ADIFF, ANEU, CMP, GFR ####[address] [address] Platelets (Bld) [#/Vol] 109 10 3/mcL Low 150-450 [facility] ([place] Comment on above: Performed By: #### C BC, ADIFF, ANEU, CMP, GFR ####[address] [address] RBC (Bld) [#/Vol] 3.76 10 6/mcL Low 4.50-6.00 [facility] ([place] Comment on above: Performed By: #### C BC, ADIFF, ANEU, CMP, GFR ####[address] [address] WBC (Bld) [#/Vol] 5.00 10 3/mcL Normal 4.50-10.80 [facility] ([place] Comment on above: Performed By: #### C BC, ADIFF, ANEU, CMP, GFR ####[place] [address] Erythrocyte distribution width (RBC) [Ratio] 13.6 % Normal 11.5-15.5 [facility] ([place] Comment on above: Performed By: #### C BC, ADIFF, ANEU, BMP, GFR ####[address] [address] Hematocrit (Bld) [Volume fraction] 28.1 % Low 34.0-46.0 [facility] ([place] Comment on above: Performed By: #### C BC, ADIFF, ANEU, BMP, GFR ####[address] [address] Hemoglobin (Bld) [Mass/Vol] 9.4 G/dL Low 12.0-16.0 [facility] ([place] Comment on above: Performed By: #### C BC, ADIFF, ANEU, BMP, GFR ####[address] [address] MCH (RBC) [Entitic mass] 32.4 pg Normal 27.0-33.0 [facility] ([place] Comment on above: Performed By: #### C BC, ADIFF, ANEU, BMP, GFR ####[address] [address] MCHC (RBC) [Mass/Vol] 33.5 G/dL Normal 32.0-36.0 [facility] ([place] Comment on above: Performed By: #### C BC, ADIFF, ANEU, BMP, GFR ####[address] [address] MCV (RBC) [Entitic vol] 96.7 fL Normal 80.0-99.0 [facility] ([place] Comment on above: Performed By: #### C BC, ADIFF, ANEU, BMP, GFR ####[address] [address] Platelet mean volume (Bld) [Entitic vol] 7.5 fL Normal 6.6-10.5 [facility] ([place] Comment on above: Performed By: #### C BC, ADIFF, ANEU, BMP, GFR ####[address] [address] Platelets (Bld) [#/Vol] 257 10 3/mcL Normal 150-450 [facility] ([place] Comment on above: Performed By: #### C BC, ADIFF, ANEU, BMP, GFR ####[address] [address] RBC (Bld) [#/Vol] 2.90 10 6/mcL Low 4.10-5.30 [facility] ([place] Comment on above: Performed By: #### C BC, ADIFF, ANEU, BMP, GFR ####[address] [address] WBC (Bld) [#/Vol] 6.50 10 3/mcL Normal 4.50-10.80 [facility] ([place] Comment on above: Performed By: #### C BC, ADIFF, ANEU, BMP, GFR ####[address] [address] Erythrocyte distribution width (RBC) [Ratio] 13.8 % Normal 11.5-15.5 [facility] ([place] Comment on above: Performed By: #### C STEPHANIE KRISHNAMURTHY, ANEU #### [address] [address] #### BMP, GFR #### [address] [address] Hematocrit (Bld) [Volume fraction] 27.4 % Low 34.0-46.0 [facility] [place] Comment on above: Performed By: #### C STEPHANIE KRISHNAMURTHY, ANEU #### [address] [address] #### BMP, GFR #### [place] [address] Hemoglobin (Bld) [Mass/Vol] 9.4 G/dL Low 12.0-16.0 [facility] [place] Comment on above: Performed By: #### C STEPHANIE KRISHNAMURTHY, ANEU #### [place] [address] #### BMP, GFR #### [address] [address] MCH (RBC) [Entitic mass] 30.3 pg Normal 27.0-33.0 [facility] [place] Comment on above: Performed By: #### C STEPHANIE KRISHNAMURTHY, ANEU #### [place] [address] #### BMP, GFR #### [place] [address] MCHC (RBC) [Mass/Vol] 34.4 G/dL Normal 32.0-36.0 [facility] ([place] Comment on above: Performed By: #### C STEPHANIE KRISHNAMURTHY, ANEU #### [place] [address] #### BMP, GFR #### [address] [address] MCV (RBC) [Entitic vol] 88.2 fL Normal 80.0-99.0 [facility] [place] Comment on above: Performed By: #### C BC, ADIFF, ANEU #### [address] [address] #### BMP, GFR #### [address] [address] Platelet mean volume (Bld) [Entitic vol] 8.1 fL Normal 6.6-10.5 [facility] ([place] Comment on above: Performed By: #### C BC, ADIFF, ANEU #### [address] [address] #### BMP, GFR #### [address] [address] Platelets (Bld) [#/Vol] 188 10 3/mcL Normal 150-450 [facility] ([place] Comment on above: Performed By: #### C BC, ADIFF, ANEU #### [place] [address] #### BMP, GFR #### [address] [address] RBC (Bld) [#/Vol] 3.11 10 6/mcL Low 4.10-5.30 [facility] ([place]) Comment on above: Performed By: #### C BC, ADIFF, ANEU #### [address] [address] #### BMP, GFR #### [address] [address] WBC (Bld) [#/Vol] 6.70 10 3/mcL Normal 4.50-10.80 [facility] ([place]) Comment on above: Performed By: #### C BC, ADIFF, ANEU #### [place] [address] #### BMP, GFR #### [address] [address] CMPon 06-07-2019 Albumin/Globulin [Mass ratio] 0.8 {ratio} Low 0.9-1.6 [facility] [place] Comment on above: Performed By: #### C BC, ADIFF, ANEU, CMP, GFR ####[address] [address] ALP [Catalytic activity/Vol] 47 U/L Normal 38-126 [facility] ([place] Comment on above: Performed By: #### C BC, ADIFF, ANEU, CMP, GFR ####[address] [address] Bili Total 0.5 mg/dL Normal 0.2-1.2 [facility] [place] Comment on above: Performed By: #### C BC, ADIFF, ANEU, CMP, GFR ####[address] [address] Creatinine [Mass/Vol] 0.66 mg/dL Normal 0.60-1.40 [facility] ([place] Comment on above: Performed By: #### C BC, ADIFF, ANEU, CMP, GFR ####[address] [address] Globulin (S) [Mass/Vol] 2.7 G/dL Normal 1.5-3.8 [facility] [place] Comment on above: Performed By: #### C BC, ADIFF, ANEU, CMP, GFR ####[address] [address] Protein [Mass/Vol] 4.8 G/dL Low 6.0-8.5 [facility] ([place] Comment on above: Performed By: #### C BC, ADIFF, ANEU, CMP, GFR ####[address] [address] Urea nitrogen/Creatinine [Mass ratio] 4.5 ratio Low 10.0-22.0 [facility] [place] Comment on above: Performed By: #### C BC, ADIFF, ANEU, CMP, GFR ####[address] [address] Albumin [Mass/Vol] 2.1 G/dL Low 3.2-4.8 [facility] ([place] Comment on above: Performed By: #### C BC, ADIFF, ANEU, CMP, GFR ####[address] [address] ALT [Catalytic activity/Vol] 16 U/L Normal 12-55 [facility] ([place] Comment on above: Performed By: #### C BC, ADIFF, ANEU, CMP, GFR ####[address] [address] AST [Catalytic activity/Vol] 11 U/L Normal 8-34 [facility] ([place] Comment on above: Performed By: #### C BC, ADIFF, ANEU, CMP, GFR ####[place] [address] Calcium [Mass/Vol] 7.8 mg/dL Low 8.4-10.1 [facility] ([place] Comment on above: Performed By: #### C BC, ADIFF, ANEU, CMP, GFR ####[address] [address] Chloride [Moles/Vol] 113 mmol/L High 98-110 [facility] ([place] Comment on above: Performed By: #### C BC, ADIFF, ANEU, CMP, GFR ####[place] [address] CO2 [Moles/Vol] 30 mmol/L Normal 22-32 [facility] ([place] Comment on above: Performed By: #### C BC, ADIFF, ANEU, CMP, GFR ####[address] [address] Electrolyte Balance 5.0 mEq/L Normal 4.0-15.0 [facility] ([place] Comment on above: Performed By: #### C BC, ADIFF, ANEU, CMP, GFR ####[address] [address] Glucose [Mass/Vol] 124 mg/dL High 70-110 [facility] ([place] Comment on above: Performed By: #### C BC, ADIFF, ANEU, CMP, GFR ####[address] [address] Potassium [Moles/Vol] 3.7 mmol/L Normal 3.5-5.0 [facility] ([place] Comment on above: Performed By: #### C BC, ADIFF, ANEU, CMP, GFR ####[place] [address] Sodium [Moles/Vol] 148 mmol/L High 136-145 [facility] ([place] Comment on above: Performed By: #### C BC, ADIFF, ANEU, CMP, GFR ####[place] [address] Urea nitrogen [Mass/Vol] 3.0 mg/dL Low 8.0-22.0 [facility] [place] Comment on above: Performed By: #### C BC, ADIFF, ANEU, CMP, GFR ####[place] [address] HHon 06-07-2019 Hematocrit (Bld) [Volume fraction] 27.4 % Low 34.0-46.0 [facility] [place] Comment on above: Performed By: #### H H ####[place] [address] Hemoglobin (Bld) [Mass/Vol] 9.6 G/dL Low 12.0-16.0 [facility] [place] Comment on above: Performed By: #### H H ####[place] [address] XR CHEST 1 VIEWon 06-07-2019 XR CHEST [...] AM Sign Date: 06/07/2019 7:43:21 AM Normal [facility] ([place] .Auto Diffon 06-06-2019 Ammonia (P) [Mass/Vol] 0.70 10 3/mcL Normal 0.09-1.40 [facility] ([place] Comment on above: Performed By: #### C BC, ADIFF, ANEU #### [place] [address] #### BMP, GFR #### [address] [address] Basophils (Bld) [#/Vol] 0.00 10 3/mcL Normal 0.00-0.27 [facility] ([place]) Comment on above: Performed By: #### C BC, ADIFF, ANEU #### [place] [address] #### BMP, GFR #### [address] [address] Basophils/100 WBC (Bld) 0.4 % Normal 0.0-2.5 [facility] [place] Comment on above: Performed By: #### C BC, ADIFF, ANEU #### [place] [address] #### BMP, GFR #### [address] [address] Eosinophils (Bld) [#/Vol] 0.10 10 3/mcL Normal 0.00-0.65 [facility] ([place] Comment on above: Performed By: #### C BC, ADIFF, ANEU #### [place] [address] #### BMP, GFR #### [address] [address] Eosinophils/100 WBC (Bld) 0.8 % Normal 0.0-6.0 [facility] [place] Comment on above: Performed By: #### C BC, ADIFF, ANEU #### [place] [address] #### BMP, GFR #### [address] [address] Lymphocytes (Bld) [#/Vol] 0.70 10 3/mcL Low 0.90-4.32 [facility] ([place] Comment on above: Performed By: #### C BC, ADIFF, ANEU #### [address] [address] #### BMP, GFR #### [facility] [address] [place] [address] Lymphocytes/100 WBC (Bld) 9.2 % Low 20.0-40.0 [facility] ([place] Comment on above: Performed By: #### C BC, ADIFF, ANEU #### [place] [address] [address] #### BMP, GFR #### [facility] [address] [place] [address] Monocytes/100 WBC (Bld) 9.6 % Normal 2.0-13.0 [facility] ([place] Comment on above: Performed By: #### C BC, ADIFF, ANEU #### [address] [address] #### BMP, GFR #### [address] [address] Neutrophils/100 WBC (Bld) 80.0 % High 50.0-75.0 [facility] [place] Comment on above: Performed By: #### C BC, ADIFF, ANEU #### [address] [address] #### BMP, GFR #### [address] [address] .GFRon 06-06-2019 GFR Non- >60 Normal [facility] ([place] Comment on above: Result Comment: [...] By: #### C BC, ADIFF, ANEU #### [address] [address] #### BMP, GFR #### [address] [address] GFR >60 Normal [facility] ([place]) Comment on above: Result Comment: [...] By: #### C BC, ADIFF, ANEU #### [place] [address] #### BMP, GFR #### [address] [address] .NEUABSon 06-06-2019 Neutrophils (Bld) [#/Vol] 6.20 10 3/mcL Normal 2.25-8.10 [facility] [place] Comment on above: Performed By: #### C BC, ADIFF, ANEU #### [address] [address] #### BMP, GFR #### [address] [address] BMPon 06-06-2019 Calcium [Mass/Vol] 8.0 mg/dL Low 8.4-10.1 [facility] ([place]) Comment on above: Performed By: #### C BC, ADIFF, ANEU #### [place] [address] #### BMP, GFR #### [address] [address] Chloride [Moles/Vol] 104 mmol/L Normal 98-110 [facility] ([place] Comment on above: Performed By: #### C BC, ADIFF, ANEU #### [address] [address] #### BMP, GFR #### [address] [address] CO2 [Moles/Vol] 26 mmol/L Normal 22-32 [facility] ([place]) Comment on above: Performed By: #### C BC, ADIFF, ANEU #### [address] [address] #### BMP, GFR #### [address] [address] Creatinine [Mass/Vol] 0.66 mg/dL Normal 0.50-1.20 [facility] ([place]) Comment on above: Performed By: #### C BC, ADIFF, ANEU #### [address] [address] #### BMP, GFR #### [address] [address] Electrolyte Balance 10.0 mEq/L Normal 4.0-15.0 [facility] ([place]) Comment on above: Performed By: #### C BC, ADIFF, ANEU #### [address] [address] #### BMP, GFR #### [address] [address] Glucose [Mass/Vol] 104 mg/dL Normal 82-115 [facility] ([place] Comment on above: Performed By: #### C BC, ADIFF, ANEU #### [address] [address] #### BMP, GFR #### [address] [address] Potassium [Moles/Vol] 3.2 mmol/L Low 3.5-5.0 [facility] ([place] Comment on above: Performed By: #### C BC, ADIFF, ANEU #### [address] [address] #### BMP, GFR #### [address] [address] Sodium [Moles/Vol] 140 mmol/L Normal 136-145 [facility] ([place] Comment on above: Performed By: #### C BC, ADIFF, ANEU #### [address] [address] #### BMP, GFR #### [address] [address] Urea nitrogen [Mass/Vol] 10.0 mg/dL Normal 8.0-22.0 [facility] [place] Comment on above: Performed By: #### C BC, ADIFF, ANEU #### [place] [address] #### BMP, GFR #### [place] [address] Urea nitrogen/Creatinine [Mass ratio] 15.2 ratio Normal 10.0-22.0 [facility] [place] Comment on above: Performed By: #### C BC, ADIFF, ANEU #### [place] [address] #### BMP, GFR #### [address] [address] CBCon 06-06-2019 Erythrocyte distribution width (RBC) [Ratio] 13.6 % Normal 11.5-15.5 [facility] [place] Comment on above: Performed By: #### C BC, ADIFF, ANEU #### [address] [address] #### BMP, GFR #### [address] [address] Hematocrit (Bld) [Volume fraction] 27.0 % Low 34.0-46.0 [facility] [place] Comment on above: Performed By: #### C BC, ADIFF, ANEU #### [address] [address] #### BMP, GFR #### [address] [address] Hemoglobin (Bld) [Mass/Vol] 9.2 G/dL Low 12.0-16.0 [facility] [place] Comment on above: Performed By: #### C BC, ADIFF, ANEU #### [place] [address] #### BMP, GFR #### [address] [address] MCH (RBC) [Entitic mass] 30.0 pg Normal 27.0-33.0 [facility] [place] Comment on above: Performed By: #### C BC, ADIFF, ANEU #### [place] [address] #### BMP, GFR #### [address] [address] MCHC (RBC) [Mass/Vol] 34.1 G/dL Normal 32.0-36.0 [facility] ([place]) Comment on above: Performed By: #### C BC, ADIFF, ANEU #### [place] [address] #### BMP, GFR #### [address] [address] MCV (RBC) [Entitic vol] 88.0 fL Normal 80.0-99.0 [facility] [place] Comment on above: Performed By: #### C BC, ADIFF, ANEU #### [place] [address] #### BMP, GFR #### [address] [address] Platelet mean volume (Bld) [Entitic vol] 8.2 fL Normal 6.6-10.5 [facility] ([place]) Comment on above: Performed By: #### C BC, ADIFF, ANEU #### [place] [address] #### BMP, GFR #### [address] [place], [place] [address] Platelets (Bld) [#/Vol] 155 10 3/mcL Normal 150-450 [facility] [place] Comment on above: Performed By: #### C BC, ADIFF, ANEU #### [address] [address] #### BMP, GFR #### [address] [address] RBC (Bld) [#/Vol] 3.07 10 6/mcL Low 4.10-5.30 [facility] ([place]) Comment on above: Performed By: #### C BC, ADIFF, ANEU #### [address] [address] #### BMP, GFR #### [address] [address] WBC (Bld) [#/Vol] 7.70 10 3/mcL Normal 4.50-10.80 [facility] ([place] Comment on above: Performed By: #### C BC, ADIFF, ANEU #### [address] [address] #### BMP, GFR #### [address] [address] XR CHEST 1 VIEWon 06-06-2019 XR CHEST [...] AM Sign Date: 06/06/2019 6:40:06 AM Normal [facility] [place] .Auto Diffon 06-05-2019 Ammonia (P) [Mass/Vol] 1.20 10 3/mcL Normal 0.09-1.40 [facility] [place] Comment on above: Performed By: #### C STEPHANIE KRISHNAMURTHY, ANEU #### [place] [address] #### BMP, GFR #### [address] [address] Basophils (Bld) [#/Vol] 0.00 10 3/mcL Normal 0.00-0.27 [facility] ([place] Comment on above: Performed By: #### C STEPHANIE KRISHNAMURTHY, ANEU #### [place] [address] #### BMP, GFR #### [address] [address] Basophils/100 WBC (Bld) 0.4 % Normal 0.0-2.5 [facility] [place] Comment on above: Performed By: #### C STEPHANIE KRISHNAMURTHY, ANEU #### [place] [address] #### BMP, GFR #### [address] [address] Eosinophils (Bld) [#/Vol] 0.10 10 3/mcL Normal 0.00-0.65 [facility] [place] Comment on above: Performed By: #### C STEPHANIE KRISHNAMURTHY, ANEU #### [place] [address] #### BMP, GFR #### [address] [address] Eosinophils/100 WBC (Bld) 0.6 % Normal 0.0-6.0 [facility] [place] Comment on above: Performed By: #### C STEPHANIE KRISHNAMURTHY, ANEU #### [place] [address] #### BMP, GFR #### [address] [address] Lymphocytes (Bld) [#/Vol] 1.10 10 3/mcL Normal 0.90-4.32 [facility] [place] Comment on above: Performed By: #### C BC, ADIFF, ANEU #### [address] [address] #### BMP, GFR #### [address] [address] Lymphocytes/100 WBC (Bld) 9.5 % Low 20.0-40.0 [facility] [place] Comment on above: Performed By: #### C BC, ADIFF, ANEU #### [address] [address] #### BMP, GFR #### [address] [address] Monocytes/100 WBC (Bld) 9.9 % Normal 2.0-13.0 [facility] [place] Comment on above: Performed By: #### C BC, ADIFF, ANEU #### [address] [address] #### BMP, GFR #### [address] [address] Neutrophils/100 WBC (Bld) 79.6 % High 50.0-75.0 [facility] [place] Comment on above: Performed By: #### C BC, ADIFF, ANEU #### [address] [address] #### BMP, GFR #### [address] [address] .GFRon 06-05-2019 GFR >60 Normal [facility] ([place] Comment on above: Result Comment: [...] By: #### C BC, ADIFF, ANEU #### [address] [address] #### BMP, GFR #### [address] [address] GFR Non- >60 Normal [facility] [place] Comment on above: Result Comment: [...] By: #### C BC, ADIFF, ANEU #### [place] [address] #### BMP, GFR #### [address] [address] .Morphon 06-05-2019 Platelets (Bld) [#/Vol] Slt Decreased Normal [facility] [place] Comment on above: Performed By: #### C BC, ADIFF, ANEU #### [address] [address] #### BMP, GFR #### [address] [address] RBC morphology finding Nom (Bld) Normal [facility] ([place]) Comment on above: Performed By: #### C BC, ADIFF, ANEU #### [address] [address] #### BMP, GFR #### [address] [address] .NEUABSon 06-05-2019 Neutrophils (Bld) [#/Vol] 9.30 10 3/mcL High 2.25-8.10 [facility] [place] Comment on above: Performed By: #### C BRYAN KRISHNAMURTHYIFF, ANEU #### [address] [address] #### BMP, GFR #### [place] [address] BMPon 06-05-2019 Calcium [Mass/Vol] 8.2 mg/dL Low 8.4-10.1 [facility] ([place] Comment on above: Performed By: #### C STEPHANIE KRISHNAMURTHY, ANEU #### [place] [address] #### BMP, GFR #### [place] [address] CO2 [Moles/Vol] 23 mmol/L Normal 22-32 [facility] ([place]) Comment on above: Performed By: #### C BCBRYANIFF, ANEU #### [place] [address] #### BMP, GFR #### [place] [address] Creatinine [Mass/Vol] 0.65 mg/dL Normal 0.50-1.20 [facility] ([place]) Comment on above: Performed By: #### C STEPHANIE KRISHNAMURTHY, ANEU #### [place] [address] #### BMP, GFR #### [place] [address] Electrolyte Balance 11.0 mEq/L Normal 4.0-15.0 [facility] ([place] Comment on above: Performed By: #### C BC ADIFF, ANEU #### [place] [address] #### BMP, GFR #### [place] [address] Glucose [Mass/Vol] 114 mg/dL Normal 82-115 [facility] ([place] Comment on above: Performed By: #### C BC, ADIFF, ANEU #### [address] [address] #### BMP, GFR #### [address] [address] Potassium [Moles/Vol] 4.2 mmol/L Normal 3.5-5.0 [facility] ([place] Comment on above: Performed By: #### C BC, ADIFF, ANEU #### [address] [address] #### BMP, GFR #### [address] [address] Urea nitrogen [Mass/Vol] 9.0 mg/dL Normal 8.0-22.0 [facility] [place] Comment on above: Performed By: #### C BC, ADIFF, ANEU #### [place] [address] #### BMP, GFR #### [address] [address] Urea nitrogen/Creatinine [Mass ratio] 13.8 ratio Normal 10.0-22.0 [facility] [place] Comment on above: Performed By: #### C BC, ADIFF, ANEU #### [address] [address] #### BMP, GFR #### [address] [address] Chloride [Moles/Vol] 107 mmol/L Normal 98-110 [facility] ([place] Comment on above: Performed By: #### C BC, ADIFF, ANEU #### [address] [address] #### BMP, GFR #### [address] [address] Sodium [Moles/Vol] 141 mmol/L Normal 136-145 [facility] ([place] Comment on above: Performed By: #### C BC, ADIFF, ANEU #### [address] [address] #### BMP, GFR #### [address] [address] CBCon 06-05-2019 Platelet mean volume (Bld) [Entitic vol] 9.1 fL Normal 6.6-10.5 [facility] ([place] Comment on above: Performed By: #### C BC, ADIFF, ANEU #### [place] [address] #### BMP, GFR #### [address] [address] Platelets (Bld) [#/Vol] 143 10 3/mcL Low 150-450 [facility] [place] Comment on above: Performed By: #### C BC, ADIFF, ANEU #### [place] [address] #### BMP, GFR #### [place] [address] Erythrocyte distribution width (RBC) [Ratio] 14.0 % Normal 11.5-15.5 [facility] [place] Comment on above: Performed By: #### C BC, ADIFF, ANEU #### [place] [address] #### BMP, GFR #### [address] [address] Hematocrit (Bld) [Volume fraction] 30.7 % Low 34.0-46.0 [facility] [place] Comment on above: Performed By: #### C BC, ADIFF, ANEU #### [place] [address] #### BMP, GFR #### [address] [address] Hemoglobin (Bld) [Mass/Vol] 10.7 G/dL Low 12.0-16.0 [facility] [place] Comment on above: Performed By: #### C BC, ADIFF, ANEU #### [place] [address] #### BMP, GFR #### [place] [address] MCH (RBC) [Entitic mass] 30.4 pg Normal 27.0-33.0 [facility] [place] Comment on above: Performed By: #### C BC ADIFF, ANEU #### [address] [address] #### BMP, GFR #### [place] [address] MCHC (RBC) [Mass/Vol] 34.8 G/dL Normal 32.0-36.0 [facility] ([place] Comment on above: Performed By: #### C STEPHANIE KRISHNAMURTHY, ANEU #### [place] [address] #### BMP, GFR #### [place] [address] MCV (RBC) [Entitic vol] 87.6 fL Normal 80.0-99.0 [facility] [place] Comment on above: Performed By: #### C BC, STEPHANIE, ANEU #### [place] [address] #### BMP, GFR #### [place] [address] RBC (Bld) [#/Vol] 3.50 10 6/mcL Low 4.10-5.30 [facility] ([place] Comment on above: Performed By: #### C STEPHANIE KRISHNAMURTHY, ANEU #### [place] [address] #### BMP, GFR #### [place] [address] WBC (Bld) [#/Vol] 11.60 10 3/mcL High 4.50-10.80 [facility] ([place] Comment on above: Performed By: #### C BC, ADIFF, ANEU #### [place] [address] #### BMP, GFR #### [place] [address] XR CHEST 1 VIEWon 09-22-2019 XR CHEST 1 VIEW ORIGINAL XR CHEST [...] By: Daryl Dominguez MD Electronically Signed By: aDryl Dominguez MD Dictated Date: 06/05/2019 7:44:14 AM Prelim Date: 06/05/2019 7:44:14 AM Sign Date: 06/05/2019 7:45:20 AM Normal [facility] [place] X[place] CHEST 1 VIEW ORIGINAL [...] PM Sign Date: 06/04/2019 11:53:30 PM Normal [facility] [place] .Auto Diffon 06-04-2019 Ammonia (P) [Mass/Vol] 0.90 10 3/mcL Normal 0.09-1.40 [facility] [place] Comment on above: Performed By: #### C RAGHU, LOU BROWN #### [address] [address] #### BMP, GFR #### [address] [address] Basophils (Bld) [#/Vol] 0.00 10 3/mcL Normal 0.00-0.27 [facility] ([place] Comment on above: Performed By: #### C BC, ADIFF, ANEU #### [place] [address] #### BMP, GFR #### [address] [address] Basophils/100 WBC (Bld) 0.3 % Normal 0.0-2.5 [facility] [place] Comment on above: Performed By: #### C BC, ADIFF, ANEU #### [place] [address] #### BMP, GFR #### [address] [address] Eosinophils (Bld) [#/Vol] 0.00 10 3/mcL Normal 0.00-0.65 [facility] ([place] Comment on above: Performed By: #### C BC, ADIFF, ANEU #### [place] [address] #### BMP, GFR #### [address] [address] Eosinophils/100 WBC (Bld) 0.1 % Normal 0.0-6.0 [facility] [place] Comment on above: Performed By: #### C BC, ADIFF, ANEU #### [place] [address] #### BMP, GFR #### [address] [address] Lymphocytes (Bld) [#/Vol] 0.90 10 3/mcL Normal 0.90-4.32 [facility] ([place] Comment on above: Performed By: #### C BC, ADIFF, ANEU #### [place] [address] #### BMP, GFR #### [address] [address] Lymphocytes/100 WBC (Bld) 10.3 % Low 20.0-40.0 [facility] [place] Comment on above: Performed By: #### C BC, ADIFF, ANEU #### [address] [address] #### BMP, GFR #### [address] [address] Monocytes/100 WBC (Bld) 9.5 % Normal 2.0-13.0 [facility] [place] Comment on above: Performed By: #### C BC, ADIFF, ANEU #### [address] [address] #### BMP, GFR #### [address] [address] Neutrophils/100 WBC (Bld) 79.8 % High 50.0-75.0 [facility] [place] Comment on above: Performed By: #### C BC, ADIFF, ANEU #### [address] [address] #### BMP, GFR #### [address] [address] .GFRon 06-04-2019 GFR >60 Normal [facility] ([place] Comment on above: Result Comment: [...] By: #### C BC, ADIFF, ANEU #### [address] [address] #### BMP, GFR #### [address] [address] GFR Non- >60 Normal [facility] [place] Comment on above: Result Comment: [...] By: #### C STEPHANIE KRISHNAMURTHY, ANEU #### [place] [address] #### BMP, GFR #### [place] [address] .NEUABSon 06-04-2019 Neutrophils (Bld) [#/Vol] 7.20 10 3/mcL Normal 2.25-8.10 [facility] [place] Comment on above: Performed By: #### STEPHANIE JOHNSON, ANEU #### [place] [address] #### BMP, GFR #### [place] [address] BMPon 06-04-2019 Calcium [Mass/Vol] 8.8 mg/dL Normal 8.4-10.1 [facility] ([place] Comment on above: Performed By: #### STEPHANIE JOHNSON, ANEU #### [place] [address] #### BMP, GFR #### [place] [address] Chloride [Moles/Vol] 109 mmol/L Normal 98-110 [facility] ([place] Comment on above: Performed By: #### C BC, ADIFF, ANEU #### [address] [address] #### BMP, GFR #### [address] [address] CO2 [Moles/Vol] 25 mmol/L Normal 22-32 [facility] ([place]) Comment on above: Performed By: #### C BC, ADIFF, ANEU #### [address] [address] #### BMP, GFR #### [address] [address] Creatinine [Mass/Vol] 0.82 mg/dL Normal 0.50-1.20 [facility] ([place] Comment on above: Performed By: #### C BC, ADIFF, ANEU #### [address] [address] #### BMP, GFR #### [address] [address] Electrolyte Balance 8.0 mEq/L Normal 4.0-15.0 [facility] ([place] Comment on above: Performed By: #### C BC, ADIFF, ANEU #### [address] [address] #### BMP, GFR #### [address] [address] Glucose [Mass/Vol] 132 mg/dL High 82-115 [facility] ([place] Comment on above: Performed By: #### C BC, ADIFF, ANEU #### [address] [address] #### BMP, GFR #### [address] [address] Potassium [Moles/Vol] 4.3 mmol/L Normal 3.5-5.0 [facility] ([place] Comment on above: Performed By: #### C BC, ADIFF, ANEU #### [address] [address] #### BMP, GFR #### [address] [address] Sodium [Moles/Vol] 142 mmol/L Normal 136-145 [facility] ([place] Comment on above: Performed By: #### C BC, ADIFF, ANEU #### [address] [address] #### BMP, GFR #### [address] [address] Urea nitrogen [Mass/Vol] 12.0 mg/dL Normal 8.0-22.0 [facility] [place] Comment on above: Performed By: #### C BC, ADIFF, ANEU #### [address] [address] #### BMP, GFR #### [address] [address] Urea nitrogen/Creatinine [Mass ratio] 14.6 ratio Normal 10.0-22.0 [facility] [place] Comment on above: Performed By: #### C RAGHU, ADIFF, ANEU #### [address] [address] #### BMP, GFR #### [address] [address] CBCon 06-04-2019 Erythrocyte distribution width (RBC) [Ratio] 14.0 % Normal 11.5-15.5 [facility] [place] Comment on above: Performed By: #### C BRYAN KRISHNAMURTHYIFF, ANEU #### [address] [address] #### BMP, GFR #### [address] [address] Hematocrit (Bld) [Volume fraction] 38.5 % Normal 34.0-46.0 [facility] [place] Comment on above: Performed By: #### C BC, ADIFF, ANEU #### [address] [address] #### BMP, GFR #### [address] [address] Hemoglobin (Bld) [Mass/Vol] 13.0 G/dL Normal 12.0-16.0 [facility] [place] Comment on above: Performed By: #### C BC, ADIFF, ANEU #### [address] [address] #### BMP, GFR #### [address] [address] MCH (RBC) [Entitic mass] 30.1 pg Normal 27.0-33.0 [facility] [place] Comment on above: Performed By: #### C BC, ADIFF, ANEU #### [address] [address] #### BMP, GFR #### [address] [address] MCHC (RBC) [Mass/Vol] 33.7 G/dL Normal 32.0-36.0 [facility] ([place] Comment on above: Performed By: #### C RAGHU ADIFF, ANEU #### [place] [address] #### BMP, GFR #### [address] [address] MCV (RBC) [Entitic vol] 89.5 fL Normal 80.0-99.0 [facility] [place] Comment on above: Performed By: #### C BC, ADIFF, ANEU #### [address] [address] #### BMP, GFR #### [address] [address] Platelet mean volume (Bld) [Entitic vol] 7.6 fL Normal 6.6-10.5 [facility] ([place] Comment on above: Performed By: #### C BC, ADIFF, ANEU #### [place] [address] #### BMP, GFR #### [address] [address] Platelets (Bld) [#/Vol] 197 10 3/mcL Normal 150-450 [facility] ([place] Comment on above: Performed By: #### C BC, ADIFF, ANEU #### [address] [address] #### BMP, GFR #### [address] [address] RBC (Bld) [#/Vol] 4.31 10 6/mcL Normal 4.10-5.30 [facility] ([place] Comment on above: Performed By: #### C BC, ADIFF, ANEU #### [address] [address] #### BMP, GFR #### [address] [address] WBC (Bld) [#/Vol] 9.00 10 3/mcL Normal 4.50-10.80 [facility] ([place] Comment on above: Performed By: #### C BC, ADIFF, ANEU #### [address] [address] #### BMP, GFR #### [address] [address] [address] ANKLE W/O CONTRAST RIGHTo n 06-04-2019 [...] PM Sign Date: 06/04/2019 12:03:00 AM Normal [facility] [place] WRIST W/O CONTRAST RIGHTo [...] AM Sign Date: 06/04/2019 12:04:55 AM Normal [facility] [place] PROon 06-04-2019 INR Coag (PPP) [Relative time] 1.0 {INR} Normal [facility] [place] Comment on above: Result Comment: [employer] (CHEST, 1992, [id number]) recommended therapeutic range for oral anticoagulant therapy is: LOW RISK: Prophylaxis of venous thrombosis INR: 2.0-3.0 Treatment of pulmonary embolism 2.0-3.0 Prevention of systemic embolism 2.0-3.0 HIGH RISK: Mechanical prosthetic valves 2.5-3.5 Performed By: #### C BC, ADIFF, ANEU #### [place] [address] #### BMP, GFR #### [place] [address] PT Coag (PPP) [Time] 12.0 s Normal 9.0-14.6 [facility] ([place] Comment on above: Result Comment: Effe ctive 03/28/08, Protime results may be affected by some antibiotics (i.e. Ciprofloxacin, Azithromycin, Bactrim) which may potentiate the action of oral anticoagulants, with further increases in Protime/INR. Performed By: #### C BC ADIFF, ANEU #### [place] [address] #### BMP, GFR #### [place] [address] TABOon 06-04-2019 ABO/Rh Interp Negative [facility] ([place] Comment on above: Performed By: #### C BC ADIFF, ANEU #### [place] [address] #### BMP, GFR #### [place] [address] TABSon 06-04-2019 Antibody Screen Tango Negative Normal [facility] ([place] Comment on above: Performed By: #### C BC ADIFF, ANEU #### [place] [address] #### BMP, GFR #### [place] [address] XR CHEST 1 VIEWon 06-04-2019 XR CHEST [...] AM Sign Date: 06/04/2019 5:25:45 AM Normal [facility] [place] X[place] FLUORO < 1HR TECH TIMEon 06-04-2019 XR FLUORO < 1HR TECH TIME ORIGINAL Intraoperative fluoroscopy and image intensifier views of the right ankle Clinical Statement: rt ankle fx, internal fixation Comparison: Radiographs 06/03/2019 FINDINGS: Technical Details: Tech Time - < 1hr\\[id number]\\1120-2p total for both ; C-Arm # - 7; Total Dose - .85mGy; Images - 6; Matrix Repairer - nmk; History - rt ankle fx, [...] PM Sign Date: 06/04/2019 3:30:03 PM Normal [facility] [place] XR FLUORO 1-2 HRS TECH TIMEo n 06-04-2019 XR FLUORO 1-2 HRS TECH TIME ORIGINAL Intraoperative fluoroscopy and image intensifier views of the right wrist Clinical Statement: rt wrist fx, internal fixation Comparison: 06/03/2019 FINDINGS: Technical Details: Tech Time - 1120-2p total for both exams; C-Arm # - 7; Total Dose - 1.71mGy; Images - 5; Matrix Repairer - nmk; History - rt wrist fx; [...] PM Sign Date: 06/04/2019 3:36:44 PM Normal [facility] [place] HAND MINIMUM 3 VIEWS [...] AM Sign Date: 06/04/2019 9:53:38 AM Normal [facility] [place] .Auto Diffon 06-03-2019 Ammonia (P) [Mass/Vol] 0.60 10 3/mcL Normal 0.15-1.00 [facility] [place] Comment on above: Performed By: #### C STEPHANIE KRISHNAMURTHY ANEU #### [place] [address] #### BMP, GFR #### [address] [address] Basophils (Bld) [#/Vol] 0.00 10 3/mcL Normal 0.00-0.19 [facility] [place] Comment on above: Performed By: #### STEPHANIE JOHNSON ANEU #### [place] [id number] #### BMP, GFR #### [address] [address] Basophils/100 WBC (Bld) 0.4 % Normal 0.0-2.5 [facility] [facility] [place] Comment on above: Performed By: #### C BCSTEPHANIE ANEU #### [address] [address] #### BMP, GFR #### [address] [address] Eosinophils (Bld) [#/Vol] 0.10 10 3/mcL Normal 0.00-0.40 [facility] ([place]) Comment on above: Performed By: #### C BC, ADIFF, ANEU #### [address] [address] #### BMP, GFR #### [address] [address] Eosinophils/100 WBC (Bld) 1.0 % Normal 0.0-7.0 [facility] ([place]) Comment on above: Performed By: #### C BC, ADIFF, ANEU #### [address] [address] #### BMP, GFR #### [address] [address] Lymphocytes (Bld) [#/Vol] 1.20 10 3/mcL Normal 0.77-3.85 [facility] ([place]) Comment on above: Performed By: #### C STEPHANIE KRISHNAMURTHY, ANEU #### [address] [address] #### BMP, GFR #### [address] [address] Lymphocytes/100 WBC (Bld) 12.6 % Normal 10.0-50.0 [facility] ([place]) Comment on above: Performed By: #### C RAGHU, ADIFF, ANEU #### [address] [address] #### BMP, GFR #### [address] [address] Monocytes/100 WBC (Bld) 6.3 % Normal 1.7-13.0 [facility] ([place]) Comment on above: Performed By: #### C BC, ADIFF, ANEU #### [address] [address] #### BMP, GFR #### [address] [address] Neutrophils/100 WBC (Bld) 79.7 % Normal 37.0-80.0 [facility] ([place]) Comment on above: Performed By: #### C BC, ADIFF, ANEU #### [address] [place], [place] [address] #### BMP, GFR #### [address] [address] .GFRon 06-03-2019 GFR 78 ml/min/1.73sqm Normal [facility] ([place]) Comment on above: Result Comment: [...] #### C BC, ADIFF, ANEU #### [address] [place] [address] [place], [place] [address] #### BMP, GFR #### [address] [address] GFR Non- 64 ml/min/1.73sqm Normal [facility] ([place] Comment on above: Result Comment: [...] By: #### C BC, ADIFF, ANEU #### [address] [address] #### BMP, GFR #### [address] [address] .NEUABSon 06-03-2019 Neutrophils (Bld) [#/Vol] 7.90 10 3/mcL High 2.85-6.16 [facility] [place] Comment on above: Performed By: #### C BC, ADIFF, ANEU #### [place] [address] #### BMP, GFR #### [address] [address] BMPon 06-03-2019 Calcium [Mass/Vol] 9.2 mg/dL Normal 8.4-10.2 [facility] ([place]) Comment on above: Performed By: #### C BC, ADIFF, ANEU #### [place] [address] #### BMP, GFR #### [place] [address] Chloride [Moles/Vol] 104 mmol/L Normal 98-107 [facility] ([place]) Comment on above: Performed By: #### C BC, ADIFF, ANEU #### [place] [address] #### BMP, GFR #### [address] [address] CO2 [Moles/Vol] 30 mmol/L Normal 23-31 [facility] ([place]) Comment on above: Performed By: #### C BC, ADIFF, ANEU #### [address] [address] #### BMP, GFR #### [address] [address] Creatinine [Mass/Vol] 0.85 mg/dL Normal 0.55-1.02 [facility] ([place]) Comment on above: Performed By: #### C BC, ADIFF, ANEU #### [place] [address]47 #### BMP, GFR #### [address] [address] Electrolyte Balance 9.0 mEq/L Normal [facility] ([place]) Comment on above: Performed By: #### C BC, ADIFF, ANEU #### [address] [address] #### BMP, GFR #### [address] [address] Glucose [Mass/Vol] 135 mg/dL High 83-110 [facility] ([place]) Comment on above: Performed By: #### C BC, ADIFF, ANEU #### [address] [address] #### BMP, GFR #### [address] [address] Potassium [Moles/Vol] 4.1 mmol/L Normal 3.5-5.1 [facility] ([place]) Comment on above: Performed By: #### C BC, ADIFF, ANEU #### [address] [address] #### BMP, GFR #### [address] [address] Sodium [Moles/Vol] 143 mmol/L Normal 136-145 [facility] ([place] Comment on above: Performed By: #### C BC, ADIFF, ANEU #### [address] [address] #### BMP, GFR #### [address] [address] Urea nitrogen [Mass/Vol] 14 mg/dL Normal 7-18 [facility] [place] Comment on above: Performed By: #### C BC, ADIFF, ANEU #### [address] [address] #### BMP, GFR #### [address] [address] Urea nitrogen/Creatinine [Mass ratio] 16 ratio Normal 7-27 [facility] ([place] Comment on above: Performed By: #### C BC, BRYANIFF, ANEU #### [address] [address] #### BMP, GFR #### [address] [address] CBCon 06-03-2019 Erythrocyte distribution width (RBC) [Ratio] 14.3 % Normal 11.5-14.5 [facility] [place] Comment on above: Performed By: #### C BC, ADIFF, ANEU #### [place] [address] #### BMP, GFR #### [place] [address] Hematocrit (Bld) [Volume fraction] 38.5 % Normal 37.0-47.0 [facility] ([place]) Comment on above: Performed By: #### C BC, ADIFF, ANEU #### [place] [address] #### BMP, GFR #### [place] [address] Hemoglobin (Bld) [Mass/Vol] 13.0 G/dL Normal 12.0-16.0 [facility] [place] Comment on above: Performed By: #### C STEPHANIE KRISHNAMURTHY, ANEU #### [address] [address] #### BMP, GFR #### [place] [address] MCH (RBC) [Entitic mass] 30.0 pg Normal 27.0-31.2 [facility] ([place] Comment on above: Performed By: #### C BC, ADIFF, ANEU #### [address] [address] #### BMP, GFR #### [place] [id number] MCHC (RBC) [Mass/Vol] 33.8 G/dL Normal 33.0-37.0 [facility] ([place]) Comment on above: Performed By: #### C BC, ADIFF, ANEU #### [address] [address] #### BMP, GFR #### [address] [address] MCV (RBC) [Entitic vol] 88.6 fL Normal 80.0-94.0 [facility] [place] Comment on above: Performed By: #### C BC, ADIFF, ANEU #### [place] [id number] #### BMP, GFR #### [address] [address] Platelet mean volume (Bld) [Entitic vol] 8.1 fL Normal 7.4-10.4 [facility] ([place]) Comment on above: Performed By: #### C BC, ADIFF, ANEU #### [place] [address] #### BMP, GFR #### [address] [address] Platelets (Bld) [#/Vol] 221 10 3/mcL Normal 130-400 [facility] [place] Comment on above: Performed By: #### C BC, ADIFF, ANEU #### [place] [address] #### BMP, GFR #### [address] [address] RBC (Bld) [#/Vol] 4.35 10 6/mcL Normal 4.20-5.40 [facility] ([place]) Comment on above: Performed By: #### C BC, ADIFF, ANEU #### [place] [id number] #### BMP, GFR #### [address] [address] WBC (Bld) [#/Vol] 9.90 10 3/mcL Normal 4.60-10.80 [facility] ([place] Comment on above: Performed By: #### C BC, ADIFF, ANEU #### [place] [address] #### BMP, GFR #### [facility] [address] [place] [address] CT ABD/PELVIS W/ IV CONTRAST ONLYon 06-03-2019 [...] PM Sign Date: 06/03/2019 4:57:41 PM Normal [facility] HEAD OR BRAIN W/O [...] PM Sign Date: 06/03/2019 4:10:32 PM [facility] [place] SPINE CERVICAL W/O CONTRA [...] PM Sign Date: 06/03/2019 4:35:12 PM [facility] [place] THORAX W/ CONTRASTon 05-16 [...] PM Sign Date: 06/03/2019 4:53:52 PM Normal [facility] [place] ANKLE AND FOOT 6 VIEWS [facility] 06-03-2019 XR ANKLE AND FOOT 6 [...] PM Sign Date: 06/03/2019 3:45:45 PM Normal [facility] [place] ANKLE MINIMUM 3 VIEWS [facility] 06-03-2019 XR ANKLE MINIMUM 3 VIEWS RIGHT [...] PM Sign Date: 06/03/2019 7:11:45 PM Normal [facility] [place] CHEST 1 VIEWon 06-03-2019 [...] PM Sign Date: 06/03/2019 6:20:15 PM Normal [facility] [place] CHEST 1 VIEW ORIGINAL [...] PM Sign Date: 06/03/2019 3:47:37 PM Normal [facility] [place] FOREARM 2 VIEWS RIGHTon [...] PM Sign Date: 06/03/2019 7:13:59 PM Normal [facility] [place] KNEE THREE VIEWS RIGHTon [...] PM Sign Date: 06/03/2019 7:12:24 PM Normal [facility] [place] PELVIS 1 OR 2 [...] PM Sign Date: 06/03/2019 3:58:51 PM Normal [facility] [place] WRIST TWO VIEWS RIGHTon [...] PM Sign Date: 06/03/2019 3:56:05 PM Normal [facility] [place] C-REACTIVE PROTEIN (79787)Or dered By: Chaplain on 10-15-2017 CRP mass conc 1.0 mg/L Normal 0.0-4.9 Comprehensi ve Internal Medicine Work Phone: Comment on above: PATIENT NOT FASTINGP ERFORMED BY: ORTIZ [facility] Zhjqnw4132 [facility] [id number] CBC (AUTO) ([id number])Ordered By : Chaplain on 10-15-2017 Erythrocyte distribution width Ratio (RBC) 13.8 % Normal 12.3-15.4 [facility] Work Phone: Comment on above: PATIENT NOT FASTINGP ERFORMED BY: CB [facility] Icfnbr8203 [facility] [place] [id number] Hematocrit Volume Fraction (Bld) 40.2 % Normal 34.0-46.6 [facility] Work Phone: Comment on above: PATIENT NOT FASTINGP ERFORMED BY: CB [facility] Fkfzro7819 [address] [facility] [id number] Hemoglobin mass conc (Bld) 13.4 g/dL Normal 11.1-15.9 [facility] Work Phone: Comment on above: PATIENT NOT FASTINGP ERFORMED BY: CB [facility] Lzlhyh1650 [address] [facility] [id number] MCH Entitic mass (RBC) 29.8 pg Normal 26.6-33.0 [facility] Internal Medicine Work Phone: Comment on above: PATIENT NOT FASTINGP ERFORMED BY: CB [facility] Kxeafy8849 [facility] [place] [id number] MCHC mass conc (RBC) 33.3 g/dL Normal 31.5-35.7 [facility] Work Phone: Comment on above: PATIENT NOT FASTINGP ERFORMED BY: CB [facility] Tzgrwr3361 [address] [facility] [id number] MCV Entitic volume (RBC) 90 fL Normal 79-97 [facility] Work Phone: Comment on above: PATIENT NOT FASTINGP ERFORMED BY: CB [facility] Fzbqej7318 [facility] [place] [id number] Platelets #/vol (Bld) 211 {x10E3/uL} Normal 150-379 [facility] Work Phone: Comment on above: PATIENT NOT FASTINGP ERFORMED BY: CB [facility] Nwsagr5416 [facility] [place] [id number] RBC #/vol (Bld) 4.49 {x10E6/uL} Normal 3.77-5.28 [facility] Work Phone: Comment on above: PATIENT NOT FASTINGP ERFORMED BY: CB [facility] Drigxn8552 [address] RoadDublin [place] [id number] WBC #/vol (Bld) 4.9 {x10E3/uL} Normal 3.4-10.8 [facility] Internal Medicine Work Phone: Comment on above: PATIENT NOT FASTINGP ERFORMED BY: CB [facility] Xzuppb3923 [address] RoadDublin [place] [id number] METABOLIC PANEL, COMPREHENSI VE ([id number])Ordered By: Chaplain on 10-15-2017 Albumin mass conc 3.9 g/dL Normal 3.5-4.8 Compreh [facility] Internal Medicine Work Phone: Comment on above: PATIENT NOT FASTINGP ERFORMED BY: CB [facility] Hlwwxn0188 [address] RoadDublin [place] [id number] Albumin/Globulin mass ratio 1.6 {ratio} Normal 1.2-2.2 [facility] Internal Medicine Work Phone: Comment on above: PATIENT NOT FASTINGP ERFORMED BY: CB [facility] Hdmfrl1304 [address] RoadDublin [place] [id number] ALP enzyme act/vol 78 [iU]/L Normal 39-117 [facility] Internal Medicine Work Phone: Comment on above: PATIENT NOT FASTINGP ERFORMED BY: CB [facility] Dyglnp5350 [address] RoadDublin [place] [id number] ALT enzyme act/vol 18 [iU]/L Normal 0-32 [facility] Internal Medicine Work Phone: Comment on above: PATIENT NOT FASTINGP ERFORMED BY: CB [facility] Bpvgpw5484 [address] RoadDublin [place] [id number] AST enzyme act/vol 25 [iU]/L Normal 0-40 [facility] Internal Medicine Work Phone: Comment on above: PATIENT NOT FASTINGP ERFORMED BY: CB [facility] Aiatla7737 [address] RoadDublin [place] [id number] Bilirubin mass conc 0.4 mg/dL Normal 0.0-1.2 Compr ehensive Internal Medicine Work Phone: Comment on above: PATIENT NOT FASTINGP ERFORMED BY: CB [facility] Khaoee8277 [address] RoadDublin [place] [id number] Calcium mass conc 9.5 mg/dL Normal 8.7-10.3 Compreh ensive Internal Medicine Work Phone: Comment on above: PATIENT NOT FASTINGP ERFORMED BY: CB [facility] Loidet2394 [address] RoadDublin [place] [id number] Chloride molar conc 102 mmol/L Normal 96-106 Compr ehensive Internal Medicine Work Phone: Comment on above: PATIENT NOT FASTINGP ERFORMED BY: CB [facility] Imsngt5701 [address] RoadDublin [place] [id number] CO2 molar conc 27 mmol/L Normal 18-29 Comprehens trupti Internal Medicine Work Phone: Comment on above: PATIENT NOT FASTINGP ERFORMED BY: CB [facility] Mzperf8403 [address] Roadblin [place] [id number] Creatinine mass conc 0.88 mg/dL Normal 0.57-1.00 [facility] Work Phone: Comment on above: PATIENT NOT FASTINGP ERFORMED BY: CB [facility] Qqwbdz2839 [address] Roadblin [place] [id number] GFR/1.73 sq M predicted among blacks CKD-EPI vol rate/area (S/P/Bld) 73 mL/min/1.73 Normal [facility] Work Phone: Comment on above: PATIENT NOT FASTINGP ERFORMED BY: CB [facility] Lkeekf3951 [address] RoadDublin [place] [id number] GFR/1.73 sq M predicted among non-blacks CKD-EPI vol rate/area (S/P/Bld) 63 mL/min/1.73 Normal Comprehensiv e Internal Medicine Work Phone: Comment on above: PATIENT NOT FASTINGP ERFORMED BY: CB [facility] Heqdqs3889 [address] RoadDublin [place] [id number] Globulin mass conc (S) 2.4 g/dL Normal 1.5-4.5 Co mprehensive Internal Medicine Work Phone: Comment on above: PATIENT NOT FASTINGP ERFORMED BY: ORTIZ LabAleksandr CroweZbtrjk5482 [address] [facility] [place] [id number] Glucose mass conc 87 mg/dL Normal 65-99 Compreh ensive Internal Medicine Work Phone: Comment on above: PATIENT NOT FASTINGP ERFORMED BY: ORTIZ LabAleksandr CroweFmdhal6041 [address] Roadblin [place] [id number] Potassium molar conc 4.8 mmol/L Normal 3.5-5.2 Comp rehensive Internal Medicine Work Phone: Comment on above: PATIENT NOT FASTINGP ERFORMED BY: ORTIZ Crowelin6370 [address] Roadbl[address] [place] [id number] Protein mass conc 6.3 g/dL Normal 6.0-8.5 Compreh ensive Internal Medicine Work Phone: Comment on above: PATIENT NOT FASTINGP ERFORMED BY: ORTIZ Crowelin6370 [address] RoadUnc Health Blue Ridgein [place] [id number] Sodium molar conc 143 mmol/L Normal 134-144 Compreh ensive Internal Medicine Work Phone: Comment on above: PATIENT NOT FASTINGP ERFORMED BY: ORTIZ Crowelin6[address] [facility] [place] [id number] Urea nitrogen mass conc 10 mg/dL Normal 8-27 [facility] Work Phone: Comment on above: PATIENT NOT FASTINGP ERFORMED BY: ORTIZ Crowelin6370 [address] [facility] [place] [id number] Urea nitrogen/Creatinine mass ratio 11 mg/mg Abnormal 12-28 [facility] Work Phone: Comment on above: PATIENT NOT FASTINGP ERFORMED BY: ORTIZ LabAleksandr CroweYabecq9873 [address] [facility] RegionD[facility] [place] [id number] SED RATE ERYTHROCYTE ([id number]) Ordered By: Chaplain on 10-15-2017 ESR Velocity (Bld) 2 mm/h Normal 0-40 Compre hensive Internal Medicine Work Phone: Comment on above: PATIENT NOT FASTINGP ERFORMED BY: ORTIZ Crowelin6370 [facility] [id number] CBC W/AUTO DIFF WBC ([id number])O rdered By: Chaplain on 09-01-2017 Basophils #/vol (Bld) 0.0 {x10E3/uL} Normal 0.0-0.2 [facility] Work Phone: Comment on above: PATIENT WAS FASTINGP ERFORMED BY: ORTIZ Crowelin6370 [facility] [id number] Basophils/100 WBC (Bld) 0 % Normal [facility] Work Phone: Comment on above: PATIENT WAS FASTINGP ERFORMED BY: ORTIZ Crowelin6370 [facility] [id number] Eosinophils #/vol (Bld) 0.1 {x10E3/uL} Normal 0.0-0.4 [facility] Work Phone: Comment on above: PATIENT WAS FASTINGP ERFORMED BY: ORTIZ Chester6370 [facility] [id number] Eosinophils/100 WBC (Bld) 1 % Normal [facility] Work Phone: Comment on above: PATIENT WAS FASTINGP ERFORMED BY: ORTIZ Crowelin6370 [facility] [id number] Erythrocyte distribution width Ratio (RBC) 13.8 % Normal 12.3-15.4 [facility] Work Phone: Comment on above: PATIENT WAS FASTINGP ERFORMED BY: ORTIZ Crowelin6370 [facility] [id number] Hematocrit Volume Fraction (Bld) 40.2 % Normal 34.0-46.6 [facility] Work Phone: Comment on above: PATIENT WAS FASTINGP ERFORMED BY: ORTIZ Crowelin6370 [facility] [id number] Hemoglobin mass conc (Bld) 13.2 g/dL Normal 11.1-15.9 [facility] Work Phone: Comment on above: PATIENT WAS FASTINGP ERFORMED BY: ORTIZ Crowelin6370 [facility] [place] [id number] Immature granulocytes #/vol (Bld) 0.0 {x10E3/uL} Normal 0.0-0.1 [facility] Work Phone: Comment on above: PATIENT WAS FASTINGP ERFORMED BY: ORTIZ LabAleksandr CroweBlsgvh3784 [facility]in [place] [id number] Immature granulocytes/100 WBC (Bld) 0 % Normal [facility] Work Phone: Comment on above: PATIENT WAS FASTINGP ERFORMED BY: ORTIZ LabKellie Soiucd6189 [facility]in [place] [id number] Lymphocytes #/vol (Bld) 1.3 {x10E3/uL} Normal 0.7-3.1 [facility] Work Phone: Comment on above: PATIENT WAS FASTINGP ERFORMED BY: ORTIZ Chester[address] [facility] [id number] Lymphocytes/100 WBC (Bld) 29 % Normal [facility] Work Phone: Comment on above: PATIENT WAS FASTINGP ERFORMED BY: ORTIZ LabMnaustyn CroweHuoeut4242 [address] [facility] [id number] MCH Entitic mass (RBC) 29.5 pg Normal 26.6-33.0 [facility] Internal Medicine Work Phone: Comment on above: PATIENT WAS FASTINGP ERFORMED BY: ORTIZ Hou Iflqgs1949 [address] [facility] [id number] MCHC mass conc (RBC) 32.8 g/dL Normal 31.5-35.7 [facility] Internal Medicine Work Phone: Comment on above: PATIENT WAS FASTINGP ERFORMED BY: ORTIZ LabAleksandr CroweSlffzl3499 [facility] [place] [id number] MCV Entitic volume (RBC) 90 fL Normal 79-97 [facility] Work Phone: Comment on above: PATIENT WAS FASTINGP ERFORMED BY: ORTIZ [facility] Brnbzj6766 [facility]in [place] [id number] Monocytes #/vol (Bld) 0.4 {x10E3/uL} Normal 0.1-0.9 [facility] Work Phone: Comment on above: PATIENT WAS FASTINGP ERFORMED BY: ORTIZ [facility] Flpzii0426 [address] RoadDublin [place] [id number] Monocytes/100 WBC (Bld) 9 % Normal [facility] Work Phone: Comment on above: PATIENT WAS FASTINGP ERFORMED BY: [facility] Ifbcco6345 [address] RoadDublin [place] [id number] Neutrophils #/vol (Bld) 2.7 {x10E3/uL} Normal 1.4-7.0 [facility] Work Phone: Comment on above: PATIENT WAS FASTINGP ERFORMED BY: ORTIZ [facility] Ckvqoo9480 [address] RoadUnc Health Blue Ridgein [place] [id number] Neutrophils/100 WBC (Bld) 61 % Normal [facility] Work Phone: Comment on above: PATIENT WAS FASTINGP ERFORMED BY: [facility] Vzcuxi8969 [address] RoadUnc Health Blue Ridgein [place] [id number] Platelets #/vol (Bld) 198 {x10E3/uL} Normal 150-379 [facility] Work Phone: Comment on above: PATIENT WAS FASTINGP ERFORMED BY: [facility] Hqutmm5751 [facility]in [place] [id number] RBC #/vol (Bld) 4.47 {x10E6/uL} Normal 3.77-5.28 [facility] Internal Medicine Work Phone: Comment on above: PATIENT WAS FASTINGP ERFORMED BY: [facility] Xvkule8696 [address] RoadDublin [place] [id number] WBC #/vol (Bld) 4.5 {x10E3/uL} Normal 3.4-10.8 [facility] Internal Medicine Work Phone: Comment on above: PATIENT WAS FASTINGP ERFORMED BY: [facility] Dmzdgz8527 [address] RoadDublin [place] [id number] LIPID PANEL ([id number])Ordered B y: Chaplain on 09-01-2017 Cholesterol in HDL mass conc 59 mg/dL Normal [facility] Work Phone: Comment on above: PATIENT WAS FASTINGP ERFORMED BY: ORTIZ Ameyaaustyn Rkbsir2952 [facility] [id number] Cholesterol in LDL mass conc 72 mg/dL Normal 0-99 [facility] Work Phone: Comment on above: PATIENT WAS FASTINGP ERFORMED BY: ORTIZ MeenaAleksandr CroweEpxbhb3782 [facility] [id number] Cholesterol in LDL/Cholesterol in HDL mass ratio 1.2 {ratio_units} Normal 0.0-3.2 [facility] Work Phone: Comment on above: LDL/HDL Ratio Men Wo men 1/2 Avg.Risk 1.0 1.5 Avg.Risk 3.6 3.2 2X Avg.Risk 6.2 5.0 3X Avg.Risk 8.0 6.1 PATIENT WAS FASTINGP ERFORMED BY: ORTIZ Crowelin6370 [facility] [id number] Cholesterol in VLDL mass conc 18 mg/dL Normal 5-40 [facility] Work Phone: Comment on above: PATIENT WAS FASTINGP ERFORMED BY: ORTIZ Crowelin6370 [facility] [id number] Cholesterol mass conc 149 mg/dL Normal 100-199 Com prehensive Internal Medicine Work Phone: Comment on above: PATIENT WAS FASTINGP ERFORMED BY: ORTIZ Crowelin6370 [facility] [id number] Triglyceride mass conc 92 mg/dL Normal 0-149 Co mprehensive Internal Medicine Work Phone: Comment on above: PATIENT WAS FASTINGP ERFORMED BY: ORTIZ MeenaAleksandr CroweAaongg2907 [facility] [id number] METABOLIC PANEL, COMPREHENSI VE ([id number])Ordered By: Chaplain on 09-01-2017 Albumin mass conc 4.3 g/dL Normal 3.5-4.8 Compreh ensive Internal Medicine Work Phone: Comment on above: PATIENT WAS FASTINGP ERFORMED BY: ORTIZ [facility] Mytdej4639 [address] RoadDublin [place] [id number] Albumin/Globulin mass ratio 2.0 {ratio} Normal 1.2-2.2 [facility] Internal Medicine Work Phone: Comment on above: PATIENT WAS FASTINGP ERFORMED BY: ORTIZ LabAleksandr CroweVuarcw1522 [address] RoadDublin [place] [id number] ALP enzyme act/vol 71 [iU]/L Normal 39-117 [facility] Internal Medicine Work Phone: Comment on above: PATIENT WAS FASTINGP ERFORMED BY: ORTIZ [facility] Gjmqxd4693 [address] RoadDublin [place] [id number] ALT enzyme act/vol 11 [iU]/L Normal 0-32 [facility] Internal Medicine Work Phone: Comment on above: PATIENT WAS FASTINGP ERFORMED BY: ORTIZ LabAleksandr CroweVpwacj2416 [address] RoadDublin [place] [id number] AST enzyme act/vol 16 [iU]/L Normal 0-40 [facility] Internal Medicine Work Phone: Comment on above: PATIENT WAS FASTINGP ERFORMED BY: ORTIZ LabAleksandr CroweHlwigh0521 [address] RoadDublin [place] [id number] Bilirubin mass conc 0.4 mg/dL Normal 0.0-1.2 [facility] Internal Medicine Work Phone: Comment on above: PATIENT WAS FASTINGP ERFORMED BY: ORTIZ [facility] Agelqn0996 [address] RoadDublin [place] [id number] Calcium mass conc 9.5 mg/dL Normal 8.7-10.[address] [facility] Internal Medicine Work Phone: Comment on above: PATIENT WAS FASTINGP ERFORMED BY: ORTIZ [facility] Hzfcfc4389 [address] RoadDublin [place] [id number] Chloride molar conc 102 mmol/L Normal 96-106 [facility] Internal Medicine Work Phone: Comment on above: PATIENT WAS FASTINGP ERFORMED BY: ORTIZ LabAleksandr CrowePhrspy4253 [address] RoadDublin [place] [id number] CO2 molar conc 27 mmol/L Normal 18-29 Comprehens trupti Internal Medicine Work Phone: Comment on above: PATIENT WAS FASTINGP ERFORMED BY: ORTIZ Ameyaaustyn CroweVdllvl6667 [address] Roadblin [place] [id number] Creatinine mass conc 0.84 mg/dL Normal 0.57-1.00 Comp rehensive Internal Medicine Work Phone: Comment on above: PATIENT WAS FASTINGP ERFORMED BY: ORTIZ MeenaAleksandr CroweHipisw1312 [facility]in [place] [id number] GFR/1.73 sq M predicted among blacks CKD-EPI vol rate/area (S/P/Bld) 77 mL/min/1.73 Normal [facility] Work Phone: Comment on above: PATIENT WAS FASTINGP ERFORMED BY: ORTIZ Crowelin6370 [address] RoadUnc Health Blue Ridgein [place] [id number] GFR/1.73 sq M predicted among non-blacks CKD-EPI vol rate/area (S/P/Bld) 67 mL/min/1.73 Normal Comprehensiv e Internal Medicine Work Phone: Comment on above: PATIENT WAS FASTINGP ERFORMED BY: ORTIZ Crowelin6370 [facility] [place] [id number] Globulin mass conc (S) 2.2 g/dL Normal 1.5-4.5 Co mprehensive [facility] Work Phone: Comment on above: PATIENT WAS FASTINGP ERFORMED BY: ORTIZ LabAleksandr CroweGkumzf6012 [facility] [place] [id number] Glucose mass conc 88 mg/dL Normal 65-99 Compreh ensive Internal Medicine Work Phone: Comment on above: PATIENT WAS FASTINGP ERFORMED BY: ORTIZ LabAleksandr CroweUhiuun4187 [facility] [place] [id number] Potassium molar conc 4.3 mmol/L Normal 3.5-5.2 Comp rehensive Internal Medicine Work Phone: Comment on above: PATIENT WAS FASTINGP ERFORMED BY: ORTIZ LabAleksandr CrowePmaoyd3030 [address] [facility] [id number] Protein mass conc 6.5 g/dL Normal 6.0-8.5 Compreh ensive Internal Medicine Work Phone: Comment on above: PATIENT WAS FASTINGP ERFORMED BY: ORTIZ Ameyaaustyn Nahjxs2151 [facility] [id number] Sodium molar conc 143 mmol/L Normal 134-144 Compreh ensive Internal Medicine Work Phone: Comment on above: PATIENT WAS FASTINGP ERFORMED BY: ORTIZ MeenaAleksandr CroweFsfrmf6125 [facility] [id number] Urea nitrogen mass conc 13 mg/dL Normal 8-27 [facility] Work Phone: Comment on above: PATIENT WAS FASTINGP ERFORMED BY: ORTIZ Nilda Chester6370 [facility] [id number] Urea nitrogen/Creatinine mass ratio 15 mg/mg Normal 12- [facility] Work Phone: Comment on above: PATIENT WAS FASTINGP ERFORMED BY: ORTIZ RobledoKellie Atmzit3959 [facility] [id number] TSH ([id number])Ordered By: [employer]e m Inspector [employer] on 09-01-2017 Thyrotropin Qn 2.410 {uIU/mL} Normal 0.450-4.50 0 [facility] Work Phone: Comment on above: PATIENT WAS FASTINGP ERFORMED BY: ORTIZ Ameya Ydcxxr9279 [facility] [id number] VITAMIN B-12 (CYANOCOBALAMIN ) ([id number])Ordered By: Chaplain on 09-01-2017 Cobalamin (Vitamin B12) mass conc 311 pg/mL Normal 232-1245 [facility] Work Phone: Comment on above: Please note refere nce interval change PATIENT WAS FASTINGP ERFORMED BY: ORTIZ MeenaAleksandr Imixev8540 [facility] [id number] Vitamin D Hydroxy (55961)Ord ered By: Chaplain on 09-01-2017 25-Hydroxyvitamin D2+25-Hydroxyvitamin D3 mass conc 33.4 ng/mL Normal 30.0-100.0 [facility] Work Phone: Comment on above: Vitamin D deficiency has been defined by the [place] of[place]icine and an Endocrine Society practice guideline as alevel of serum 25-OH vitamin D less than 20 ng/mL (1,2).The Endocrine Society went on to further define vitamin Dinsufficiency as a level between 21 and 29 ng/mL (2).1. IOM ([place] of Medicine). 2010. Dietary reference intakes for calcium and D. [place]: The National AcademFancyBox Press.2. Emile Rayo, Natalie POOLE, et al. Evaluation, treatment, and prevention of vitamin D deficiency: an Endocrine Society clinical practice guideline. JCEM. 2010; 96(7):1911-30. PATIENT WAS FASTINGP ERFORMED BY: LabCo Mymalb8250 [facility] [id number] Office Visiton 06-05-2017 Dietary management education, guidance, and counseling (procedure) yes Invalid Interpretation Code [facility] Work Phone: Documentation of current medications (procedure) Done Invalid Interpretation Code [facility] Work Phone: Fall risk assessment No Invalid Interpretation Code [facility] Work Phone: Tobacco use CPHS Never smoker Invalid Interpretation Code [facility] Work Phone: CALCIFIDIOL (66475) VIT D 25 Ordered By: Chaplain on 12-16-2016 25-Hydroxyvitamin D2+25-Hydroxyvitamin D3 mass conc 37.5 ng/mL Normal 30.0-100.0 [facility] Work Phone: Comment on above: Vitamin D deficiency has been defined by the [place] of[place]icine and an Endocrine Society practice guideline as alevel of serum 25-OH vitamin D less than 20 ng/mL (1,2).The Endocrine Society went on to further define vitamin Dinsufficiency as a level between 21 and 29 ng/mL (2).1. IOM ([place] of Medicine). 2010. Dietary reference intakes for calcium and D. [place]: The National Academies Press.2. Emile Rayo, Natalie POOLE, et al. Evaluation, treatment, and prevention of vitamin D deficiency: an Endocrine Society clinical practice guideline. JCEM. 2010; 96(7):1911-30. PATIENT WAS FASTINGP ERFORMED BY: CB [facility] Vayajq5272 Rodriguez RoadDublin [place] [id number] HEPATIC FUNCTION PANEL (8007 6)Ordered By: Chaplain on 12-16-2016 Albumin mass conc 4.3 g/dL Normal 3.5-4.8 Compreh [facility] Work Phone: Comment on above: PATIENT WAS FASTINGP ERFORMED BY: CB [facility] Nkudsh3986 Rodriguez RoadDublin [place] [id number] ALP enzyme act/vol 72 [iU]/L Normal 39-117 [facility] Work Phone: Comment on above: PATIENT WAS FASTINGP ERFORMED BY: CB [facility] Cueowl3381 [address] RoadDublin [place] [id number] ALT enzyme act/vol 15 [iU]/L Normal 0-32 [facility] Work Phone: Comment on above: PATIENT WAS FASTINGP ERFORMED BY: CB [facility] Gmafts9553 [address] RoadDublin [place] [id number] AST enzyme act/vol 18 [iU]/L Normal 0-40 [facility] Work Phone: Comment on above: PATIENT WAS FASTINGP ERFORMED BY: CB [facility] Msgbrw4756 [address] RoadDublin [place] [id number] Bilirubin mass conc 0.5 mg/dL Normal 0.0-1.2 Compr [facility] Internal Medicine Work Phone: Comment on above: PATIENT WAS FASTINGP ERFORMED BY: CB [facility] Orspje9159 [address] RoadDublin [place] [id number] Bilirubin.direct mass conc 0.16 mg/dL Normal 0.00-0.40 [facility] Internal Medicine Work Phone: Comment on above: PATIENT WAS FASTINGP ERFORMED BY: CB [facility] Hwzwlg9381 [address] RoadDublin [place] [id number] Protein mass conc 6.7 g/dL Normal 6.0-8.5 Compreh [facility] Work Phone: Comment on above: PATIENT WAS FASTINGP ERFORMED BY: ORTIZ LabCoaustyn Jkizqw8344 [facility] [id number] LIPID PANEL ([id number])Ordered B y: Chaplain on 12-16-2016 Cholesterol in HDL mass conc 56 mg/dL Normal [facility] Work Phone: Comment on above: PATIENT WAS FASTINGP ERFORMED BY: ORTIZ [facility] Pfoshq9743 [facility] [id number] Information: [id number], [id number] Cholesterol in LDL mass conc 44 mg/dL Normal 0-99 [facility] Work Phone: Comment on above: PATIENT WAS FASTINGP ERFORMED BY: ORTIZ MeenaCoaustyn CroweJzvzuu8013 [facility] [id number] Information: [id number], [id number] Cholesterol in LDL/Cholesterol in HDL mass ratio 0.8 {ratio_units} Normal 0.0-3.2 [facility] Work Phone: Comment on above: LDL/HDL Ratio Men Wo men 1/2 Avg.Risk 1.0 1.5 Avg.Risk 3.6 3.2 2X Avg.Risk 6.2 5.0 3X Avg.Risk 8.0 6.1 PATIENT WAS FASTINGP ERFORMED BY: ORTIZ MeenaCoaustyn CroweXrffbg1348 [facility] [id number] Information: [id number], [id number] Cholesterol in VLDL mass conc 27 mg/dL Normal 5-40 [facility] Work Phone: Comment on above: PATIENT WAS FASTINGP ERFORMED BY: ORTIZ [facility] Woisfh4620 [facility] [id number] Information: [id number], [id number] Cholesterol mass conc 127 mg/dL Normal 100-199 Com prehensive Internal Medicine Work Phone: Comment on above: PATIENT WAS FASTINGP ERFORMED BY: ORTIZ [facility] Ortsvv5610 [facility] [id number] Information: [id number], 150421 Triglyceride mass conc 135 mg/dL Normal 0-149 Co [facility] divisionehens[facility] Work Phone: Comment on above: PATIENT WAS FASTINGP ERFORMED BY: ORTIZ Chester6370 [facility] [id number] Information: [id number], [id number] 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 Left ventricular Ejection fraction 70 % Invalid Interpretation Code [facility] Work Phone: Lipid Panel (48324)Ordered B y: Chaplain on 09-16-2016 Cholesterol in HDL mass conc 44 mg/dL Normal [facility] Work Phone: Comment on above: PATIENT WAS FASTINGP ERFORMED BY: ORTIZ Chester6370 [facility] [id number] Cholesterol in LDL mass conc 161 mg/dL Abnormal 0-99 [facility] Work Phone: Comment on above: PATIENT WAS FASTINGP ERFORMED BY: ORTIZ Chester6370 [facility] [id number] Cholesterol in LDL/Cholesterol in HDL mass ratio 3.7 {ratio_units} Abnormal 0.0-3.2 [facility] Work Phone: Comment on above: LDL/HDL Ratio Men Wo men 1/2 Avg.Risk 1.0 1.5 Avg.Risk 3.6 3.2 2X Avg.Risk 6.2 5.0 3X Avg.Risk 8.0 6.1 PATIENT WAS FASTINGP ERFORMED BY: ORTIZ Chester6370 [facility] [id number] Cholesterol in VLDL mass conc 28 mg/dL Normal 5-40 [facility] Work Phone: Comment on above: PATIENT WAS FASTINGP ERFORMED BY: ORTIZ Chester6370 [facility] [id number] Cholesterol mass conc 233 mg/dL Abnormal 100-199 Com prehensive Internal Medicine Work Phone: Comment on above: PATIENT WAS FASTINGP ERFORMED BY: ORTIZ Chester6370 [facility] [id number] Triglyceride mass conc 139 mg/dL Normal 0-149 Co [facility] Internal Medicine Work Phone: Comment on above: PATIENT WAS FASTINGP ERFORMED BY: ORTIZ [employer] Gcxxsu9527 [facility]in [place] [id number] VITAMIN B-12 (CYANOCOBALAMIN ) (24661)Ordered By: Chaplain on 09-16-2016 Cobalamin (Vitamin B12) mass conc 788 pg/mL Normal 211-946 [facility] Work Phone: Comment on above: PATIENT WAS FASTINGP ERFORMED BY: ORTIZ [employer] Ocjevm3323 [facility]in [place] [id number] CALCIFIDIOL (32730) VIT D 25 Ordered By: Chaplain on 07-01-2016 25-Hydroxyvitamin D2+25-Hydroxyvitamin D3 mass conc 34.8 ng/mL Normal 30.0-100.0 [facility] Work Phone: Comment on above: Vitamin D deficiency has been defined by the [place] ofMedicine and an Endocrine Society practice guideline as alevel of serum 25-OH vitamin D less than 20 ng/mL (1,2).The Endocrine Society went on to further define vitamin Dinsufficiency as a level between 21 and 29 ng/mL (2).1. IOM ([place] of [employer]). 2010. Dietary reference intakes for calcium and D. [place]: The National Academies Press.2. Allie MF, Emile [place], Natalie POOLE, et al. Evaluation, treatment, and prevention of vitamin D deficiency: an Endocrine Society clinical practice guideline. JCEM. 2010; 96(7):1911-30. PATIENT WAS FASTINGP ERFORMED BY: ORTIZ [employer] Gynqel8498 [facility] [place] [id number] CBC W/AUTO DIFF WBC (00386)O rdered By: Chaplain on 07-01-2016 Basophils #/vol (Bld) 0.0 {x10E3/uL} Normal 0.0-0.2 [facility] Work Phone: Comment on above: PATIENT WAS FASTINGP ERFORMED BY: [employer] Yfyofw7448 [address] [facility] [id number] Basophils/100 WBC (Bld) 0 % Normal [facility] Work Phone: Comment on above: PATIENT WAS FASTINGP ERFORMED BY: LabCoCare One at Raritan Bay Medical CenterArrmxm0489 [address] Roadblin [place] [id number] Eosinophils #/vol (Bld) 0.1 {x10E3/uL} Normal 0.0-0.4 [facility] Work Phone: Comment on above: PATIENT WAS FASTINGP ERFORMED BY: LabCoPresbyterian Santa Fe Medical CenterDqfgmo6709 [facility]in [place] [id number] Eosinophils/100 WBC (Bld) 2 % Normal [facility] Work Phone: Comment on above: PATIENT WAS FASTINGP ERFORMED BY: [facility]6370 [address] [facility] [id number] Erythrocyte distribution width Ratio (RBC) 14.0 % Normal 12.3-15.4 [facility] Work Phone: Comment on above: PATIENT WAS FASTINGP ERFORMED BY: [place] 1064570 [address] [facility] [id number] Hematocrit Volume Fraction (Bld) 42.4 % Normal 34.0-46.6 [facility] Work Phone: Comment on above: PATIENT WAS FASTINGP ERFORMED BY: [facility]6370 [address] [facility] [id number] Hemoglobin mass conc (Bld) 14.1 g/dL Normal 11.1-15.9 [facility] Work Phone: Comment on above: PATIENT WAS FASTINGP ERFORMED BY: [facility]Centerpoint [facility] Gyikjg2128 [address] [facility] [id number] Immature granulocytes #/vol (Bld) 0.0 {x10E3/uL} Normal 0.0-0.1 [facility] Work Phone: Comment on above: PATIENT WAS FASTINGP ERFORMED BY: [facility]6370 [address] [facility] [id number] Immature granulocytes/100 WBC (Bld) 0 % Normal [facility] Work Phone: Comment on above: PATIENT WAS FASTINGP ERFORMED BY: ORTIZ LabAleksandr CroweHnxpsa8451 [address] [facility] [id number] Lymphocytes #/vol (Bld) 1.8 {x10E3/uL} Normal 0.7-3.1 [facility] Work Phone: Comment on above: PATIENT WAS FASTINGP ERFORMED BY: ORTIZ Chester6370 [facility] [id number] Lymphocytes/100 WBC (Bld) 31 % Normal [facility] Work Phone: Comment on above: PATIENT WAS FASTINGP ERFORMED BY: ORTIZ LabAleksandr Chester6370 [facility] [id number] MCH Entitic mass (RBC) 29.7 pg Normal 26.6-33.0 [facility] Internal Medicine Work Phone: Comment on above: PATIENT WAS FASTINGP ERFORMED BY: ORTIZ Chester6370 [facility] [id number] MCHC mass conc (RBC) 33.3 g/dL Normal 31.5-35.7 [facility] Internal Medicine Work Phone: Comment on above: PATIENT WAS FASTINGP ERFORMED BY: ORTIZ Crowelin6370 [facility] [id number] MCV Entitic volume (RBC) 89 fL Normal 79-97 [facility] Work Phone: Comment on above: PATIENT WAS FASTINGP ERFORMED BY: ORTIZ Chester6370 [facility] [id number] Monocytes #/vol (Bld) 0.4 {x10E3/uL} Normal 0.1-0.9 [facility] Work Phone: Comment on above: PATIENT WAS FASTINGP ERFORMED BY: ORTIZ LabAleksandr CroweHxvpis8995 [facility] [id number] Monocytes/100 WBC (Bld) 6 % Normal [facility] Work Phone: Comment on above: PATIENT WAS FASTINGP ERFORMED BY: ORTIZ Crowelin6370 [facility] [place] [id number] Neutrophils #/vol (Bld) 3.7 {x10E3/uL} Normal 1.4-7.0 [facility] Work Phone: Comment on above: PATIENT WAS FASTINGP ERFORMED BY: ORTIZ MeenaCo Wzlaiq2717 [facility] [place] [id number] Neutrophils/100 WBC (Bld) 61 % Normal [facility] Work Phone: Comment on above: PATIENT WAS FASTINGP ERFORMED BY: [facility] Pvnrjg7133 [address] [facility] [id number] Platelets #/vol (Bld) 221 {x10E3/uL} Normal 150-379 [facility] Work Phone: Comment on above: PATIENT WAS FASTINGP ERFORMED BY: LabCenterpoint [facility] Heobig8516 [facility] [id number] RBC #/vol (Bld) 4.75 {x10E6/uL} Normal 3.77-5.28 [facility] Internal Medicine Work Phone: Comment on above: PATIENT WAS FASTINGP ERFORMED BY: LabCenterpoint [facility] Wbtzma7979 [address] [facility] [id number] WBC #/vol (Bld) 6.0 {x10E3/uL} Normal 3.4-10.8 [facility] Internal Medicine Work Phone: Comment on above: PATIENT WAS FASTINGP ERFORMED BY: [facility] Ffcgkl5051 [facility] [id number] LIPID PANEL ([id number])Ordered B y: Chaplain on 07-01-2016 Cholesterol in HDL mass conc 41 mg/dL Normal [facility] Work Phone: Comment on above: According to ATP-III Guidelines, HDL-C >59 mg/dL is considered anegative risk factor for CHD. PATIENT WAS FASTINGP ERFORMED BY: ORTIZ [facility] Qhipaj5195 [facility] [id number] Cholesterol in LDL mass conc 129 mg/dL Abnormal 0-99 [facility] Work Phone: Comment on above: PATIENT WAS FASTINGP ERFORMED BY: ORTIZ LabAleksandr Xjtlok6875 [facility] [place] [id number] Cholesterol in LDL/Cholesterol in HDL mass ratio 3.1 {ratio_units} Normal 0.0-3.2 [facility] Work Phone: Comment on above: LDL/HDL Ratio Men Wo men 1/2 Avg.Risk 1.0 1.5 Avg.Risk 3.6 3.2 2X Avg.Risk 6.2 5.0 3X Avg.Risk 8.0 6.1 PATIENT WAS FASTINGP ERFORMED BY: ORTIZ LabAleksandr CroweDvwiwb5918 [address] Mozat Pte LtdUnc Health Blue Ridgein [place] [id number] Cholesterol in VLDL mass conc 45 mg/dL Abnormal 5-40 [facility] Work Phone: Comment on above: PATIENT WAS FASTINGP ERFORMED BY: ORTIZ LabAleksandr CroweZyratl6501 [address] Moz[facility] Pte LtdUnc Health Blue Ridgein [place] [id number] Cholesterol mass conc 215 mg/dL Abnormal 100-199 Com prehensive Internal Medicine Work Phone: Comment on above: PATIENT WAS FASTINGP ERFORMED BY: ORTIZ LabAleksandr CroweJdegwk7598 [address] [facility]bl[facility] [place] [id number] Triglyceride mass conc 223 mg/dL Abnormal 0-149 Co mprehensive Internal Medicine Work Phone: Comment on above: PATIENT WAS FASTINGP ERFORMED BY: ORTIZ LabAleksandr CroweJdjskw5421 [facility] [place] [id number] METABOLIC PANEL, COMPREHENSI VE ([id number])Ordered By: Chaplain on 07-01-2016 Albumin mass conc 4.1 g/dL Normal 3.5-4.8 Compreh ensive Internal Medicine Work Phone: Comment on above: PATIENT WAS FASTINGP ERFORMED BY: ORTIZ LabAleksandr Gqwrsg7388 [address] [facility] [place] [id number] Albumin/Globulin mass ratio 1.6 {ratio} Normal 1.1-2.5 [facility] Work Phone: Comment on above: PATIENT WAS FASTINGP ERFORMED BY: ORTIZ [facility] Njpbjc4150 [address] RoadDublin [place] [id number] ALP enzyme act/vol 98 [iU]/L Normal 39-117 Compre [facility] Internal Medicine Work Phone: Comment on above: PATIENT WAS FASTINGP ERFORMED BY: CB [facility] Jwbmxz0637 [address] RoadDublin [place] [id number] ALT enzyme act/vol 11 [iU]/L Normal 0-32 Compre [facility] Internal Medicine Work Phone: Comment on above: PATIENT WAS FASTINGP ERFORMED BY: CB [facility] Dqrhlo5690 [address] RoadDublin [place] [id number] AST enzyme act/vol 17 [iU]/L Normal 0-40 [facility] Work Phone: Comment on above: PATIENT WAS FASTINGP ERFORMED BY: [facility] Yoodqq7192 [address] RoadDublin [place] [id number] Bilirubin mass conc 0.2 mg/dL Normal 0.0-1.2 Compr ensive Internal Medicine Work Phone: Comment on above: PATIENT WAS FASTINGP ERFORMED BY: [facility] Imokma8672 [address] RoadDublin [place] [id number] Calcium mass conc 9.8 mg/dL Normal 8.7-10.3 Compreh [facility]ive Internal [facility] Work Phone: Comment on above: PATIENT WAS FASTINGP ERFORMED BY: [facility] Qgnxpx3055 [address] Roadblin [place] [id number] Chloride molar conc 101 mmol/L Normal 97-106 Compr ensive Internal Medicine Work Phone: Comment on above: Please note refere nce interval change PATIENT WAS FASTINGP ERFORMED BY: CB [facility] Axqdra6152 [address] RoadDublin [place] [id number] CO2 molar conc 27 mmol/L Normal 18-29 Comprehens trupti Internal Medicine Work Phone: Comment on above: PATIENT WAS FASTINGP ERFORMED BY: CB [facility] Lphuzi9699 [address] RoadDublin [place] [id number] Creatinine mass conc 0.89 mg/dL Normal 0.57-1.00 Comp [facility]ensive Internal [facility] Work Phone: Comment on above: PATIENT WAS FASTINGP ERFORMED BY: ORTIZ [facility] Cpkhmq5636 [address] RoadDublin [place] [id number] GFR/1.73 sq M predicted among blacks CKD-EPI vol rate/area (S/P/Bld) 72 mL/min/1.73 Normal [facility] Work Phone: Comment on above: PATIENT WAS FASTINGP ERFORMED BY: CB [facility] Undjax6836 [address] RoadDublin [place] [id number] GFR/1.73 sq M predicted among non-blacks CKD-EPI vol rate/area (S/P/Bld) 63 mL/min/1.73 Normal Comprehensiv e Internal Medicine Work Phone: Comment on above: PATIENT WAS FASTINGP ERFORMED BY: ORTIZ LabCoaustyn CroweNtejah7925 [address] RoadDublin [place] [id number] Globulin mass conc (S) 2.5 g/dL Normal 1.5-4.5 [facility]isensive Internal [facility] Work Phone: Comment on above: PATIENT WAS FASTINGP ERFORMED BY: ORTIZ LabCouastyn Xnwakd8383 [address] RoadDublin [place] [id number] Glucose mass conc 92 mg/dL Normal 65-99 Compreh ensive Internal Medicine Work Phone: Comment on above: PATIENT WAS FASTINGP ERFORMED BY: ORTIZ LabCoaustyn Mumvnf6121 [address] RoadDublin [place] [id number] Potassium molar conc 5.0 mmol/L Normal 3.5-5.2 Comp rehensive Internal Medicine Work Phone: Comment on above: Please note refere nce interval change PATIENT WAS FASTINGP ERFORMED BY: ORTIZ [facility] Wbbveb2299 [address] RoadDublin [place] [id number] Protein mass conc 6.6 g/dL Normal 6.0-8.5 Compreh ensive Internal Medicine Work Phone: Comment on above: PATIENT WAS FASTINGP ERFORMED BY: ORTIZ [facility] Twmqpt0095 [address] RoadDublin [place] [id number] Sodium molar conc 143 mmol/L Normal 136-144 Compreh ensive Internal Medicine Work Phone: Comment on above: Please note refere nce interval change PATIENT WAS FASTINGP ERFORMED BY: ORTIZ LabAleksandr CroweFcgrcc8357 [address] Roadblin [place] [id number] Urea nitrogen mass conc 9 mg/dL Normal 8-27 [facility] Work Phone: Comment on above: PATIENT WAS FASTINGP ERFORMED BY: ORTIZ [facility] Vmxbgl3285 [address] [facility]bl[facility] [place] [id number] Urea nitrogen/Creatinine mass ratio 10 mg/mg Abnormal 11- [facility] Work Phone: Comment on above: PATIENT WAS FASTINGP ERFORMED BY: ORTIZ [facility] Kodtvb9523 [facility]in [place] [id number] MICROALBUMINOrdered By: [employer] em [employer] on 07-01-2016 Albumin DL <= 20 mg/L mass conc (U) 5.9 ug/mL Normal [facility] Work Phone: Comment on above: PATIENT WAS FASTINGP ERFORMED BY: ORTIZ [facility] Zascll8715 [facility] [place] [id number] Albumin/Creatinine mass ratio (U) 4.3 {mg/g_creat} Normal 0.0-30.0 [facility] Work Phone: Comment on above: PATIENT WAS FASTINGP ERFORMED BY: ORTIZ [facility] Bmqamg9206 [facility] [place] [id number] Creatinine mass conc (U) 138.1 mg/dL Normal [facility] Work Phone: Comment on above: PATIENT WAS FASTINGP ERFORMED BY: ORTIZ [facility] Qjxmtz9259 [address] [facility]bl[facility] [place] [id number] TSH ([id number])Ordered By: [employer]e [employer] on 07-01-2016 Thyrotropin Qn 3.470 {uIU/mL} Normal 0.450-4.50 0 [facility] Work Phone: Comment on above: PATIENT WAS FASTINGP ERFORMED BY: ORTIZ [facility] Nameaa0475 [address] RoadDublin [place] [id number] URINALYSIS, W/ MICRO ([id number]) Ordered By: Chaplain on 07-01-2016 Appearance Nom (U) Clear Normal Compre hensive Internal Medicine Work Phone: Comment on above: PATIENT WAS FASTINGP ERFORMED BY: ORTIZ [facility] Jqgwcj7090 [address] RoadDublin [place] [id number] Bilirubin Ql (U) Negative Normal Comprehe nsive Internal Medicine Work Phone: Comment on above: PATIENT WAS FASTINGP ERFORMED BY: ORTIZ [facility] Smutwm7966 [address] RoadDublin [place] [id number] Color Nom (U) Yellow Normal Comprehensi ve Internal Medicine Work Phone: Comment on above: PATIENT WAS FASTINGP ERFORMED BY: ORTIZ [facility] Fkdaqj1445 [address] RoadDublin [place] [id number] Glucose Ql (U) Negative Normal Comprehens trupti Internal Medicine Work Phone: Comment on above: PATIENT WAS FASTINGP ERFORMED BY: ORTIZ [facility] Cvxzho9225 [address] RoadDublin [place] [id number] Hemoglobin Ql (U) Negative Normal Compreh ensive Internal Medicine Work Phone: Comment on above: PATIENT WAS FASTINGP ERFORMED BY: ORTIZ [facility] Zsblil1863 [address] RoadDublin [place] [id number] Ketones Ql (U) Negative Normal Comprehens trupti Internal Medicine Work Phone: Comment on above: PATIENT WAS FASTINGP ERFORMED BY: ORTIZ [facility] Wzcjcv7312 [address] RoadDublin [place] [id number] Leukocyte esterase Test strip Ql (U) Negative Normal [facility] Work Phone: Comment on above: PATIENT WAS FASTINGP ERFORMED BY: ORTIZ [facility] Cprmvo2780 [address] RoadDublin [place] [id number] Microscopic observation LM Nom (Urine sed) MICRON Normal [facility] Work Phone: Comment on above: Microscopic follows if indicated. PATIENT WAS FASTINGP ERFORMED BY: ORTIZ [facility] Xxdnrj4737 [address] RoadDublin [place] [id number] Microscopic observation LM Nom (Urine sed) See below: Normal [facility] Work Phone: Comment on above: Microscopic was derrick cated and was performed. PATIENT WAS FASTINGP ERFORMED BY: ORTIZ [facility] Tntnet3650 [address] RoadDublin [place] [id number] Nitrite Ql (U) Negative Normal Comprehens trupti Internal Medicine Work Phone: Comment on above: PATIENT WAS FASTINGP ERFORMED BY: [facility] Aevlrm5710 [address] RoadDublin [place] [id number] pH (U) 5.5 [pH] Normal 5.0-7.5 [facility] Work Phone: Comment on above: PATIENT WAS FASTINGP ERFORMED BY: [facility] Wqgjev9263 [address] RoadDublin [place] [id number] Protein Ql (U) Negative Normal Comprehens trupti Internal Medicine Work Phone: Comment on above: PATIENT WAS FASTINGP ERFORMED BY: [facility] Kqgwhr2120 [address] RoadDublin [place] [id number] Specific gravity Relative Density (U) 1.016 1 Normal 1.005-1.03 0 [facility] Work Phone: Comment on above: PATIENT WAS FASTINGP ERFORMED BY: [facility] Qdxnrc1062 Rodriguez RoadDublin [place] [id number] Urobilinogen Test strip mass conc (U) 0.2 mg/dL Normal 0.2-1.0 Comprehensiv e Internal Medicine Work Phone: Comment on above: PATIENT WAS FASTINGP ERFORMED BY: [facility] Ymuqup0252 Rodriguez RoadDublin [place] [id number] VITAMIN B-12 (CYANOCOBALAMIN ) (30768)Ordered By: Chaplain on 07-01-2016 Cobalamin (Vitamin B12) mass conc 861 pg/mL Normal 211-946 [facility] Work Phone: Comment on above: PATIENT WAS FASTINGP ERFORMED BY: [facility] Reriir8792 Rodriguez RoadDublin [place] [id number] CALCIFIDIOL (94869) VIT D 25 Ordered By: Chaplain on 12-05-2015 25-Hydroxyvitamin D2+25-Hydroxyvitamin D3 mass conc 40.5 ng/mL Normal 30.0-100.0 [facility] Work Phone: Comment on above: Vitamin D deficiency has been defined by the [place] [facility] and an Endocrine Society practice guideline as alevel of serum 25-OH vitamin D less than 20 ng/mL (1,2).The Endocrine Society went on to further define vitamin Dinsufficiency as a level between 21 and 29 ng/mL (2).1. IOM ([place] of Medicine). 2010. Dietary reference intakes for calcium and D. [place]: The National Academies Press.2. Allie MF, Emile PONCE, Natalie POOLE, et al. Evaluation, treatment, and prevention of vitamin D deficiency: an Endocrine Society clinical practice guideline. JCEM. 2010; 96(7):1911-30. PATIENT WAS FASTINGP ERFORMED BY: [employer] Kgipzh9017 [facility] [id number] CBC W/AUTO DIFF WBC (81626)O rdered By: Chaplain on 12-05-2015 Basophils #/vol (Bld) 0.0 {x10E3/uL} Normal 0.0-0.2 [facility] Work Phone: Comment on above: PATIENT WAS FASTINGP ERFORMED BY: [employer] Lefcel8016 [facility] [id number] Information: [id number] Basophils/100 WBC (Bld) 1 % Normal [facility] Work Phone: Comment on above: PATIENT WAS FASTINGP ERFORMED BY: [employer] Irfwkr4145 [facility] [id number] Information: [id number] Eosinophils #/vol (Bld) 0.2 {x10E3/uL} Normal 0.0-0.4 [facility] Work Phone: Comment on above: PATIENT WAS FASTINGP ERFORMED BY: Liquid BronzeMichael Ville 5047370 [facility] [id number] Information: [id number] Eosinophils/100 WBC (Bld) 4 % Normal [facility] Work Phone: Comment on above: PATIENT WAS FASTINGP ERFORMED BY: [address] [id number] Information: [id number] Erythrocyte distribution width Ratio (RBC) 13.7 % Normal 12.3-15.4 [facility] Work Phone: Comment on above: PATIENT WAS FASTINGP ERFORMED BY: [address] [id number] Information: [id number] Hematocrit Volume Fraction (Bld) 40.2 % Normal 34.0-46.6 [facility] Work Phone: Comment on above: PATIENT WAS FASTINGP ERFORMED BY: [address] [id number] Information: [id number] Hemoglobin mass conc (Bld) 13.6 g/dL Normal 11.1-15.9 [facility] Work Phone: Comment on above: PATIENT WAS FASTINGP ERFORMED BY: [address] [id number] Information: [id number] Immature granulocytes #/vol (Bld) 0.0 {x10E3/uL} Normal 0.0-0.1 [facility] Work Phone: Comment on above: PATIENT WAS FASTINGP ERFORMED BY: [address] [id number] Information: [id number] Immature granulocytes/100 WBC (Bld) 0 % Normal [facility] Work Phone: Comment on above: PATIENT WAS FASTINGP ERFORMED BY: [address] [id number] Information: [id number] Lymphocytes #/vol (Bld) 1.2 {x10E3/uL} Normal 0.7-3.1 [facility] Work Phone: Comment on above: PATIENT WAS FASTINGP ERFORMED BY: [place] 1064570 [facility] [id number] Information: [id number] Lymphocytes/100 WBC (Bld) 26 % Normal [facility] Work Phone: Comment on above: PATIENT WAS FASTINGP ERFORMED BY: [address] [id number] Information: [id number] MCH Entitic mass (RBC) 30.0 pg Normal 26.6-33.0 [facility] Internal Medicine Work Phone: Comment on above: PATIENT WAS FASTINGP ERFORMED BY: [address] [id number] Information: [id number] MCHC mass conc (RBC) 33.8 g/dL Normal 31.5-35.7 [facility] Internal Medicine Work Phone: Comment on above: PATIENT WAS FASTINGP ERFORMED BY: [address] [id number] Information: [id number] MCV Entitic volume (RBC) 89 fL Normal 79-97 [facility] Work Phone: Comment on above: PATIENT WAS FASTINGP ERFORMED BY: [address] [id number] Information: [id number] Monocytes #/vol (Bld) 0.5 {x10E3/uL} Normal 0.1-0.9 [facility] Work Phone: Comment on above: PATIENT WAS FASTINGP ERFORMED BY: [place] 1064570 [facility] [id number] Information: [id number] Monocytes/100 WBC (Bld) 10 % Normal [facility] Work Phone: Comment on above: PATIENT WAS FASTINGP ERFORMED BY: [facility] Qzszkw1341 [facility] [id number] Information: [id number] Neutrophils #/vol (Bld) 2.7 {x10E3/uL} Normal 1.4-7.0 [facility] Work Phone: Comment on above: PATIENT WAS FASTINGP ERFORMED BY: [place] 1064570 [facility] [id number] Information: [id number] Neutrophils/100 WBC (Bld) 59 % Normal [facility] Work Phone: Comment on above: PATIENT WAS FASTINGP ERFORMED BY: [facility]6370 [facility] [id number] Information: [id number] Platelets #/vol (Bld) 206 {x10E3/uL} Normal 150-379 [facility] Work Phone: Comment on above: PATIENT WAS FASTINGP ERFORMED BY: [facility]6370 [facility] [id number] Information: [id number] RBC #/vol (Bld) 4.54 {x10E6/uL} Normal 3.77-5.28 [facility] Internal Medicine Work Phone: Comment on above: PATIENT WAS FASTINGP ERFORMED BY: [place] 1064570 [facility] [id number] Information: [id number] WBC #/vol (Bld) 4.5 {x10E3/uL} Normal 3.4-10.8 [facility] Internal Medicine Work Phone: Comment on above: PATIENT WAS FASTINGP ERFORMED BY: [facility]6370 [facility] [id number] Information: [id number] LIPID PANEL (82911)Ordered B y: Chaplain on 12-05-2015 Cholesterol in HDL mass conc 46 mg/dL Normal [facility] Work Phone: Comment on above: According to ATP-III Guidelines, HDL-C >59 mg/dL is considered anegative risk factor for CHD. PATIENT WAS FASTINGP ERFORMED BY: ORTIZ Nilda Crowelin6370 [facility] [id number] Cholesterol in LDL mass conc 126 mg/dL Abnormal 0-99 [facility] Work Phone: Comment on above: PATIENT WAS FASTINGP ERFORMED BY: ORTIZ [place] 6095670 [facility] [id number] Cholesterol in LDL/Cholesterol in HDL mass ratio 2.7 {ratio_units} Normal 0.0-3.2 [facility] Work Phone: Comment on above: LDL/HDL Ratio Men Wo men 1/2 Avg.Risk 1.0 1.5 Avg.Risk 3.6 3.2 2X Avg.Risk 6.2 5.0 3X Avg.Risk 8.0 6.1 PATIENT WAS FASTINGP ERFORMED BY: ORTIZ [place] 6095670 [facility] [id number] Cholesterol in VLDL mass conc 31 mg/dL Normal 5-40 [facility] Work Phone: Comment on above: PATIENT WAS FASTINGP ERFORMED BY: ORTIZ Ameya Jlulfq4010 [facility] [id number] Cholesterol mass conc 203 mg/dL Abnormal 100-199 Com prehensive Internal Medicine Work Phone: Comment on above: PATIENT WAS FASTINGP ERFORMED BY: ORTIZ [place] 6095670 [facility] [id number] Triglyceride mass conc 156 mg/dL Abnormal 0-149 Co mprehensive Internal Medicine Work Phone: Comment on above: PATIENT WAS FASTINGP ERFORMED BY: ORTIZ [facility]6370 [facility] [id number] METABOLIC PANEL, COMPREHENSI VE ([id number])Ordered By: Chaplain on 12-05-2015 Albumin mass conc 4.2 g/dL Normal 3.5-4.8 Compreh ensive Internal Medicine Work Phone: Comment on above: PATIENT WAS FASTINGP ERFORMED BY: ORTIZ [facility] Ubqldv4574 Rodriguez Roadblin [place] [id number] Albumin/Globulin mass ratio 1.8 {ratio} Normal 1.1-2.5 [facility] Internal Medicine Work Phone: Comment on above: PATIENT WAS FASTINGP ERFORMED BY: ORTIZ [facility] Cspnra8578 [address] [facility] [place] [id number] ALP enzyme act/vol 71 [iU]/L Normal 39-117 [facility] Internal Medicine Work Phone: Comment on above: PATIENT WAS FASTINGP ERFORMED BY: ORTIZ [facility] Fhxdxc6321 [address] [facility] [place] [id number] ALT enzyme act/vol 10 [iU]/L Normal 0-32 [facility] Internal Medicine Work Phone: Comment on above: PATIENT WAS FASTINGP ERFORMED BY: ORTIZ [facility] Absorw5048 [address] [facility] [id number] AST enzyme act/vol 17 [iU]/L Normal 0-40 [facility] Internal Medicine Work Phone: Comment on above: PATIENT WAS FASTINGP ERFORMED BY: ORTIZ [facility] Zgkqep4704 [address] [facility] [place] [id number] Bilirubin mass conc 0.4 mg/dL Normal 0.0-1.2 [facility] Internal Medicine Work Phone: Comment on above: PATIENT WAS FASTINGP ERFORMED BY: ORTIZ [facility] Pbbrzw5515 [address] [facility] [place] [id number] Calcium mass conc 9.5 mg/dL Normal 8.7-10.[address] [facility] Internal Medicine Work Phone: Comment on above: PATIENT WAS FASTINGP ERFORMED BY: ORTIZ [facility] Picxhe6913 [address] [facility] [place] [id number] Chloride molar conc 106 mmol/L Normal 97-108 [facility] Internal Medicine Work Phone: Comment on above: PATIENT WAS FASTINGP ERFORMED BY: ORTIZ [facility] Cayxyl5[address] [facility] [place] [id number] CO2 molar conc 25 mmol/L Normal 18-29 Comprehens trupti Internal Medicine Work Phone: Comment on above: PATIENT WAS FASTINGP ERFORMED BY: ORTIZ Nilda Crowelin6370 [facility] [id number] Creatinine mass conc 0.92 mg/dL Normal 0.57-1.00 Comp rehensive Internal Medicine Work Phone: Comment on above: PATIENT WAS FASTINGP ERFORMED BY: ORTIZ Ameya Faxsbk2869 [facility] [id number] GFR/1.73 sq M predicted among blacks CKD-EPI vol rate/area (S/P/Bld) 70 mL/min/1.73 Normal [facility] Work Phone: Comment on above: PATIENT WAS FASTINGP ERFORMED BY: ORTIZ Crowelin6370 [facility] [id number] GFR/1.73 sq M predicted among non-blacks CKD-EPI vol rate/area (S/P/Bld) 61 mL/min/1.73 Normal Comprehensiv e Internal Medicine Work Phone: Comment on above: PATIENT WAS FASTINGP ERFORMED BY: ORTIZ Crowelin6370 [facility] [id number] Globulin mass conc (S) 2.3 g/dL Normal 1.5-4.5 Co mprehensive Internal Medicine Work Phone: Comment on above: PATIENT WAS FASTINGP ERFORMED BY: ORTIZ MeenaAleksandr CroweLsluyh8245 [facility] [id number] Glucose mass conc 84 mg/dL Normal 65-99 Compreh ensive Internal Medicine Work Phone: Comment on above: PATIENT WAS FASTINGP ERFORMED BY: ORTIZ MeenaAleksandr CroweCincdp7790 [facility] [id number] Potassium molar conc 4.6 mmol/L Normal 3.5-5.2 Comp rehensive Internal Medicine Work Phone: Comment on above: PATIENT WAS FASTINGP ERFORMED BY: ORTIZ Crowelin6370 [place] [facility] [id number] Protein mass conc 6.5 g/dL Normal 6.0-8.5 Compreh ensive Internal Medicine Work Phone: Comment on above: PATIENT WAS FASTINGP ERFORMED BY: ORTIZ [place] [facility] [place] [id number] Sodium molar conc 145 mmol/L Abnormal 134-144 Compreh ensive Internal Medicine Work Phone: Comment on above: PATIENT WAS FASTINGP ERFORMED BY: Ameya Gpfzzo1635 [address] [facility] [place] [id number] Urea nitrogen mass conc 16 mg/dL Normal 8-27 [facility] Work Phone: Comment on above: PATIENT WAS FASTINGP ERFORMED BY: ORTIZ Ameya Letyah6561 [facility] [id number] Urea nitrogen/Creatinine mass ratio 17 mg/mg Normal 11-26 [facility] Work Phone: Comment on above: PATIENT WAS FASTINGP ERFORMED BY: [facility] Oqqbqu3363 [facility] [id number] MICROALBUMINOrdered By: Syst em Inspector [employer]ating [employer]rig[employer] on 12-05-2015 Albumin DL <= 20 mg/L mass conc (U) 25.6 ug/mL Abnormal 0.0-17.0 [facility] Work Phone: Comment on above: PATIENT WAS FASTINGP ERFORMED BY: [facility] Ludkzd7880 [facility] [id number] Albumin/Creatinine mass ratio (U) 9.3 {mg/g_creat} Normal 0.0-30.0 [facility] Work Phone: Comment on above: PATIENT WAS FASTINGP ERFORMED BY: LabKellie Dvdbeg84[address] [facility] [id number] Creatinine mass conc (U) 276.5 mg/dL Normal 15.0-278.0 [facility] Work Phone: Comment on above: PATIENT WAS FASTINGP ERFORMED BY: [facility] Gvqqfu4012 [address] RoadDublin [place] [id number] TSH ([id number])Ordered By: Syste m Inspector [employer] on 12-05-2015 Thyrotropin Qn 1.330 {uIU/mL} Normal 0.450-4.50 0 [facility] Work Phone: Comment on above: PATIENT WAS FASTINGP ERFORMED BY: ORTIZ [facility] Cnksjb1632 [address] RoadDublin [place] [id number] URINALYSIS, W/ MICRO ([id number]) Ordered By: Chaplain on 12-05-2015 Appearance Nom (U) Clear Normal Compre hensive Internal Medicine Work Phone: Comment on above: PATIENT WAS FASTINGP ERFORMED BY: ORTIZ LabCoaustyn CroweZgjkro3325 [address] RoadDublin [place] [id number] Bilirubin Ql (U) Negative Normal Comprehe nsive Internal Medicine Work Phone: Comment on above: PATIENT WAS FASTINGP ERFORMED BY: ORTIZ LabCoaustyn CroweFhhtrh5794 [address] RoadDublin [place] [id number] Color Nom (U) Yellow Normal Comprehensi ve Internal Medicine Work Phone: Comment on above: PATIENT WAS FASTINGP ERFORMED BY: ORTIZ LabCoaustyn CroweWdiori0519 [address] RoadDublin [place] [id number] Glucose Ql (U) Negative Normal Comprehens trupti Internal Medicine Work Phone: Comment on above: PATIENT WAS FASTINGP ERFORMED BY: ORTIZ LabAleksandr CroweKosqki8999 [address] RoadDublin [place] [id number] Hemoglobin Ql (U) Negative Normal Compreh ensive Internal Medicine Work Phone: Comment on above: PATIENT WAS FASTINGP ERFORMED BY: ORTIZ [facility] Gyonkc5274 [address] RoadDublin [place] [id number] Ketones Ql (U) Negative Normal Comprehens trupti Internal Medicine Work Phone: Comment on above: PATIENT WAS FASTINGP ERFORMED BY: ORTIZ [facility] Nqongx8186 [address] RoadDublin [place] [id number] Leukocyte esterase Test strip Ql (U) Negative Normal [facility] Work Phone: Comment on above: PATIENT WAS FASTINGP ERFORMED BY: ORTIZ [facility] Jlglzo6683 [address] RoadDublin [place] [id number] Microscopic observation LM Nom (Urine sed) See below: Normal [facility] Work Phone: Comment on above: Microscopic was derrick cated and was performed. PATIENT WAS FASTINGP ERFORMED BY: ORTIZ [facility] Tgcvtn2734 [address] RoadDublin [place] [id number] Nitrite Ql (U) Negative Normal Comprehens trupti Internal Medicine Work Phone: Comment on above: PATIENT WAS FASTINGP ERFORMED BY: ORTIZ [facility] Wsqkak2503 [address] RoadDublin [place] [id number] pH (U) 5.5 [pH] Normal 5.0-7.5 [facility] Work Phone: Comment on above: PATIENT WAS FASTINGP ERFORMED BY: ORTIZ LabCoaustyn CroweEylczd5459 [address] RoadDublin [place] [id number] Protein Ql (U) 1+ Abnormal Comprehens trupti Internal Medicine Work Phone: Comment on above: PATIENT WAS FASTINGP ERFORMED BY: ORTIZ [facility] Eywgxp0170 [address] RoadDublin [place] [id number] Specific gravity Relative Density (U) 1.029 1 Normal 1.005-1.03 0 [facility] Work Phone: Comment on above: PATIENT WAS FASTINGP ERFORMED BY: ORTIZ [facility] Lilogr3699 [address] RoadDublin [place] [id number] Urobilinogen Test strip mass conc (U) 0.2 mg/dL Normal 0.2-1.0 Comprehensiv e Internal Medicine Work Phone: Comment on above: PATIENT WAS FASTINGP ERFORMED BY: ORTIZ [facility] Pvzkby9591 [address] RoadDublin [place] [id number] VITAMIN B-12 (CYANOCOBALAMIN ) ([id number])Ordered By: Chaplain on 12-05-2015 Cobalamin (Vitamin B12) mass conc 465 pg/mL Normal 211-946 [facility] Work Phone: Comment on above: PATIENT WAS FASTINGP ERFORMED BY: [facility] Sesfyg[address] Juxta [facility]Carol[facility] [id number] Fecal Occult Blood , Office ([id number])Ordered By: Gabino Bullock on 11-08-2015 Hemoglobin.gastrointes tinal Ql (St) Negative Normal [facility] Work Phone: VITAMIN B-12 (CYANOCOBALAMIN ) ([id number])Ordered By: Chaplain on 08-27-2015 Cobalamin (Vitamin B12) mass conc 919 pg/mL Normal 211-946 [facility] Work Phone: Comment on above: PATIENT NOT FASTINGP ERFORMED BY: [facility] Izvmdo7[address] Juxta LabsCarolinaEast [facility] Center [id number] Information: [id number] 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 Anion gap 6 mmol/L Invalid Interpretation Code [facility] Work Phone: basophils as percent of blood leukocytes, manual count 0.5 % Invalid Interpretation Code [facility] Work Phone: BUN/Creatinine Ratio 18.8 mg/mg Invalid Interpretation Code [facility] Work Phone: Calcium 8.9 mg/dL Invalid Interpretation Code [facility] Work Phone: Chloride 106 mmol/L Invalid Interpretation Code [facility] Work Phone: CO2 31.0 mmol/L Invalid Interpretation Code [facility] Work Phone: Creatinine 0.85 mg/dL Invalid Interpretation Code [facility] Work Phone: eosinophils as percent of blood leukocytes, manual count 5.4 % High [facility] Work Phone: Erythrocytes (RBC) 4.14 10*6/uL [facility] Work Phone: Glucose 102 mg/dL Invalid Interpretation Code [facility] Work Phone: Hematocrit (HCT) 38.6 % Invalid Interpretation Code [facility] Work Phone: Hemoglobin (HGB) 12.6 g/dL Invalid Interpretation Code [facility] Work Phone: Lymphocytes/100 leukocytes 27.3 % Invalid Interpretation Code [employer] Work Phone: MCH 30.4 pg Invalid Interpretation Code [employer] Work Phone: MCHC 32.6 g/dL Invalid Interpretation Code [employer] Work Phone: MCV 93.2 fL Invalid Interpretation Code [employer] Work Phone: Monocytes/100 leukocytes 10.2 % High [employer] Work Phone: neutrophils, band form as percent of blood leukocytes, manual count 56.4 % Invalid Interpretation Code [employer] Work Phone: Platelets 162 10*3/mm3 Invalid Interpretation Code [employer] Work Phone: PMV by Bernard 9.6 fL Invalid Interpretation Code [employer] Work Phone: Potassium 4.3 mmol/L Invalid Interpretation Code [employer] Work Phone: RDW-CA 12.9 % Invalid Interpretation Code [employer] Work Phone: Sodium 143 mmol/L Invalid Interpretation Code [employer] Work Phone: Urea nitrogen 16 mg/dL Invalid Interpretation Code [employer] Work Phone: WBC (Leukocytes) 6.3 10*3/uL Invalid Interpretation Code [employer] Work Phone: 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 Cholesterol 136 mg/dL Invalid Interpretation Code [employer] Work Phone: HDL Cholesterol 49 mg/dL Invalid Interpretation Code [employer] Work Phone: LDL Cholesterol 66 mg/dL Invalid Interpretation Code [employer] Work Phone: Triglyceride 105 mg/dL Invalid Interpretation Code [employer] Work Phone: very low density lipoproteins 21 mg/dL Invalid Interpretation Code [employer] Work Phone: CBC W/AUTO DIFF WBC ([id number])O rdered By: Chaplain on 10-19-2014 Basophils #/vol (Bld) 0.0 {x10E3/uL} Normal 0.0-0.2 [facility] Work Phone: Comment on above: PATIENT WAS FASTINGP ERFORMED BY: [place] 1064570 [facility] [id number] Information: [id number] Basophils/100 WBC (Bld) 1 % Normal [facility] Work Phone: Comment on above: PATIENT WAS FASTINGP ERFORMED BY: [address] [id number] Information: [id number] Eosinophils #/vol (Bld) 0.2 {x10E3/uL} Normal 0.0-0.4 [facility] Work Phone: Comment on above: PATIENT WAS FASTINGP ERFORMED BY: [address] [id number] Information: [id number] Eosinophils/100 WBC (Bld) 5 % Normal [facility] Work Phone: Comment on above: PATIENT WAS FASTINGP ERFORMED BY: [address] [id number] Information: [id number] Erythrocyte distribution width Ratio (RBC) 13.5 % Normal 12.3-15.4 [facility] Work Phone: Comment on above: PATIENT WAS FASTINGP ERFORMED BY: [address] [id number] Information: [id number] Hematocrit Volume Fraction (Bld) 39.1 % Normal 34.0-46.6 [facility] Work Phone: Comment on above: PATIENT WAS FASTINGP ERFORMED BY: [address] [id number] Information: [id number] Hemoglobin mass conc (Bld) 12.9 g/dL Normal 11.1-15.9 [facility] Work Phone: Comment on above: PATIENT WAS FASTINGP ERFORMED BY: ORTIZ [place] 6095670 [facility] [id number] Information: [id number] Immature granulocytes #/vol (Bld) 0.0 {x10E3/uL} Normal 0.0-0.1 [facility] Work Phone: Comment on above: PATIENT WAS FASTINGP ERFORMED BY: [address] [id number] Information: [id number] Immature granulocytes/100 WBC (Bld) 0 % Normal [facility] Work Phone: Comment on above: PATIENT WAS FASTINGP ERFORMED BY: [address] [id number] Information: [id number] Lymphocytes #/vol (Bld) 1.2 {x10E3/uL} Normal 0.7-3.1 [facility] Work Phone: Comment on above: PATIENT WAS FASTINGP ERFORMED BY: [address] [id number] Information: [id number] Lymphocytes/100 WBC (Bld) 25 % Normal [facility] Work Phone: Comment on above: PATIENT WAS FASTINGP ERFORMED BY: [address] [id number] Information: [id number] MCH Entitic mass (RBC) 29.8 pg Normal 26.6-33.0 [facility] Internal Medicine Work Phone: Comment on above: PATIENT WAS FASTINGP ERFORMED BY: [address] [id number] Information: [id number] MCHC mass conc (RBC) 33.0 g/dL Normal 31.5-35.7 [facility] Internal Medicine Work Phone: Comment on above: PATIENT WAS FASTINGP ERFORMED BY: ORTIZ LabCoCare [facility] at [facility] CenterGqgvez4388 [facility] [id number] Information: [id number] MCV Entitic volume (RBC) 90 fL Normal 79-97 [facility] Work Phone: Comment on above: PATIENT WAS FASTINGP ERFORMED BY: LabCoCare [facility] CenterUrbqtp9908 [facility] [id number] Information: [id number] Monocytes #/vol (Bld) 0.5 {x10E3/uL} Normal 0.1-0.9 [facility] Work Phone: Comment on above: PATIENT WAS FASTINGP ERFORMED BY: ORTIZ [facility] Institute6370 [facility] [id number] Information: [id number] Monocytes/100 WBC (Bld) 10 % Normal [facility] Work Phone: Comment on above: PATIENT WAS FASTINGP ERFORMED BY: LabCoCare [facility] CenterWkhvsk2336 [facility] [id number] Information: [id number] Neutrophils #/vol (Bld) 2.9 {x10E3/uL} Normal 1.4-7.0 [facility] Work Phone: Comment on above: PATIENT WAS FASTINGP ERFORMED BY: ORTIZ LabK[facility] Institute6370 [facility] [id number] Information: [id number] Neutrophils/100 WBC (Bld) 59 % Normal [facility] Work Phone: Comment on above: PATIENT WAS FASTINGP ERFORMED BY: LabCo Yzdktc0902 [facility] [id number] Information: [id number] Platelets #/vol (Bld) 196 {x10E3/uL} Normal 150-379 [facility] Work Phone: Comment on above: PATIENT WAS FASTINGP ERFORMED BY: LabK[facility] Institute6370 [facility] [id number] Information: [id number] RBC #/vol (Bld) 4.33 {x10E6/uL} Normal 3.77-5.28 [facility] Internal Medicine Work Phone: Comment on above: PATIENT WAS FASTINGP ERFORMED BY: ORTIZ Hou Rtemzo2351 [facility] [id number] Information: [id number] WBC #/vol (Bld) 4.9 {x10E3/uL} Normal 3.4-10.8 [facility] Internal Medicine Work Phone: Comment on above: PATIENT WAS FASTINGP ERFORMED BY: ORTIZ Ameya Enlykw6597 [facility] [id number] Information: [id number] LIPID PANEL (15071)Ordered B y: Chaplain on 10-19-2014 Cholesterol in HDL mass conc 47 mg/dL Normal [facility] Work Phone: Comment on above: According to ATP-III Guidelines, HDL-C >59 mg/dL is considered anegative risk factor for CHD. PATIENT WAS FASTINGP ERFORMED BY: ORTIZ Ameya Dtxilo1411 [facility] [id number] Cholesterol in LDL mass conc 148 mg/dL Abnormal 0-99 [facility] Work Phone: Comment on above: PATIENT WAS FASTINGP ERFORMED BY: AmeyaCare One at Rar[facility] Medical CenterVctaph2975 [facility] [id number] Cholesterol in LDL/Cholesterol in HDL mass ratio 3.1 {ratio_units} Normal 0.0-3.2 [facility] Work Phone: Comment on above: LDL/HDL Ratio Men Wo men 1/2 Avg.Risk 1.0 1.5 Avg.Risk 3.6 3.2 2X Avg.Risk 6.2 5.0 3X Avg.Risk 8.0 6.1 PATIENT WAS FASTINGP ERFORMED BY: [facility] Oqevgq9834 [facility] [id number] Cholesterol in VLDL mass conc 36 mg/dL Normal 5-40 [facility] Work Phone: Comment on above: PATIENT WAS FASTINGP ERFORMED BY: ORTIZ [facility] Bhzfuo2588 Rodriguez RoadDublin [place] [id number] Cholesterol mass conc 231 mg/dL Abnormal 100-[address] [facility] Work Phone: Comment on above: PATIENT WAS FASTINGP ERFORMED BY: ORTIZ [facility] Ilskbt6438 Rodriguez RoadDublin [place] [id number] Triglyceride mass conc 179 mg/dL Abnormal 0-149 [facility] Work Phone: Comment on above: PATIENT WAS FASTINGP ERFORMED BY: ORTIZ [facility] Sdqvvp7845 Rodriguez Roadblin [place] [id number] METABOLIC PANEL, COMPREHENSI VE (42247)Ordered By: Chaplain on 10-19-2014 Albumin mass conc 4.3 g/dL Normal 3.5-4.[address] [facility] Internal Medicine Work Phone: Comment on above: PATIENT WAS FASTINGP ERFORMED BY: ORTIZ [facility] Oknpee0488 [address] RoadDublin [place] [id number] Albumin/Globulin mass ratio 2.2 {ratio} Normal 1.1-2.5 [facility] Internal Medicine Work Phone: Comment on above: PATIENT WAS FASTINGP ERFORMED BY: ORTIZ [facility] Gagosb4235 [address] [facility] Hospitalbl[facility] [place] [id number] ALP enzyme act/vol 73 [iU]/L Normal 39-117 [facility] Internal Medicine Work Phone: Comment on above: PATIENT WAS FASTINGP ERFORMED BY: ORTIZ [facility] Ufxsse7049 [address] RoadDublin [place] [id number] ALT enzyme act/vol 8 [iU]/L Normal 0-32 [facility] Internal Medicine Work Phone: Comment on above: PATIENT WAS FASTINGP ERFORMED BY: ORTIZ [facility] Ifsmds9071 [address] RoadDublin [place] [id number] AST enzyme act/vol 15 [iU]/L Normal 0-40 [facility] Internal Medicine Work Phone: Comment on above: PATIENT WAS FASTINGP ERFORMED BY: ORTIZ [facility] Osoakq9168 [address] Roadblin [place] [id number] Bilirubin mass conc 0.3 mg/dL Normal 0.0-1.2 Compr ensive Internal Medicine Work Phone: Comment on above: PATIENT WAS FASTINGP ERFORMED BY: ORTIZ [facility] Gbnley7589 Rodriguez RoadUnc Health Blue Ridgein [place] [id number] Calcium mass conc 9.6 mg/dL Normal 8.7-10.3 Compreh ensive Internal Medicine Work Phone: Comment on above: PATIENT WAS FASTINGP ERFORMED BY: ORTIZ LabCoaustyn CroweUlgwhf3978 [address] [facility]in [place] [id number] Chloride molar conc 99 mmol/L Normal 97-108 Compr [facility] Internal Medicine Work Phone: Comment on above: PATIENT WAS FASTINGP ERFORMED BY: ORTIZ [facility] Rdpsbh1881 [address] [facility] [id number] CO2 molar conc 27 mmol/L Normal 18-29 Comprehens trupti Internal Medicine Work Phone: Comment on above: PATIENT WAS FASTINGP ERFORMED BY: ORTIZ LabCoaustyn ChesterFjmmeo8173 [address] [facility] [id number] Creatinine mass conc 0.91 mg/dL Normal 0.57-1.00 Comp [facility] Internal Medicine Work Phone: Comment on above: PATIENT WAS FASTINGP ERFORMED BY: ORTIZ [facility] Imnzvl1739 [address] [facility] [id number] GFR/1.73 sq M predicted among blacks CKD-EPI vol rate/area (S/P/Bld) 71 mL/min/1.73 Normal [facility] Work Phone: Comment on above: PATIENT WAS FASTINGP ERFORMED BY: ORTIZ [facility] Ywzexg9413 [address] [facility] Hospitalin [place] [id number] GFR/1.73 sq M predicted among non-blacks CKD-EPI vol rate/area (S/P/Bld) 62 mL/min/1.73 Normal Comprehensiv e Internal Medicine Work Phone: Comment on above: PATIENT WAS FASTINGP ERFORMED BY: ORTIZ LabCoaustyn Siyvqn3457 [address] RoadDublin [place] [id number] Globulin mass conc (S) 2.0 g/dL Normal 1.5-4.5 [facility] Work Phone: Comment on above: PATIENT WAS FASTINGP ERFORMED BY: ORTIZ LabCoaustyn CroweWbbsih8591 [address] RoadDublin [place] [id number] Glucose mass conc 82 mg/dL Normal 65-99 Compreh ensive Internal Medicine Work Phone: Comment on above: PATIENT WAS FASTINGP ERFORMED BY: ORTIZ LabAleksandr CroweCppmwd3174 [address] RoadDublin [place] [id number] Potassium molar conc 4.6 mmol/L Normal 3.5-5.2 Comp [facility]ensive Internal [facility] Work Phone: Comment on above: PATIENT WAS FASTINGP ERFORMED BY: ORTIZ LabAleksandr CroweXdpjhu6982 [address] RoadDublin [place] [id number] Protein mass conc 6.3 g/dL Normal 6.0-8.5 Compreh ensive Internal Medicine Work Phone: Comment on above: PATIENT WAS FASTINGP ERFORMED BY: ORTIZ LabAleksandr CroweMdwuco7187 [address] RoadDublin [place] [id number] Sodium molar conc 141 mmol/L Normal 134-144 Compreh ensive Internal Medicine Work Phone: Comment on above: PATIENT WAS FASTINGP ERFORMED BY: ORTIZ LabAleksandr CroweCwwfaw5933 [address] RoadDublin [place] [id number] Urea nitrogen mass conc 11 mg/dL Normal 8-27 [facility] Work Phone: Comment on above: PATIENT WAS FASTINGP ERFORMED BY: ORTIZ LabCoaustyn Rtxmjq9718 [address] RoadDublin [place] [id number] Urea nitrogen/Creatinine mass ratio 12 mg/mg Normal 11-26 [facility] Work Phone: Comment on above: PATIENT WAS FASTINGP ERFORMED BY: ORTIZ LabCoaustyn Uzwosb0507 [address] RoadDublin [place] [id number] MICROALBUMINOrdered By: Syst em Inspector [employer] on 10-19-2014 Albumin DL <= 20 mg/L mass conc (U) 10.7 ug/mL Normal 0.0-17.0 [facility] Work Phone: Comment on above: PATIENT WAS FASTINGP ERFORMED BY: ORTIZ LabAleksandr CroweGpepis9725 [address] RoadDublin [place] [id number] Albumin/Creatinine mass ratio (U) 8.1 {mg/g_creat} Normal 0.0-30.0 [facility] Work Phone: Comment on above: PATIENT WAS FASTINGP ERFORMED BY: ORTIZ LabCenterpoint [facility] Center Hwokka7965 [address] RoadDublin [place] [id number] Creatinine mass conc (U) 132.3 mg/dL Normal 15.0-278.0 [facility] Work Phone: Comment on above: PATIENT WAS FASTINGP ERFORMED BY: ORTIZ Hou Kzuggk0154 [address] RoadDublin [place] [id number] TSH ([id number])Ordered By: [employer]e m Inspector [employer] on 10-19-2014 Thyrotropin Qn 1.170 {uIU/mL} Normal 0.450-4.50 0 [facility] Work Phone: Comment on above: PATIENT WAS FASTINGP ERFORMED BY: ORTIZ Crowelin6370 [address] RoadDublin [place] [id number] URINALYSIS, W/ MICRO ([id number]) Ordered By: Chaplain on 10-19-2014 Appearance Nom (U) Clear Normal Compre [facility] Internal Medicine Work Phone: Comment on above: PATIENT WAS FASTINGP ERFORMED BY: ORTIZ LabCo Crvulv7605 [address] RoadDublin [place] [id number] Bilirubin Ql (U) Negative Normal Comprehe nsive Internal Medicine Work Phone: Comment on above: PATIENT WAS FASTINGP ERFORMED BY: ORTIZ LabCenterpoint Medical Center Cflhcb7175 [address] RoadDublin [place] [id number] Color Nom (U) Yellow Normal Comprehensi ve Internal Medicine Work Phone: Comment on above: PATIENT WAS FASTINGP ERFORMED BY: ORTIZ Crowelin6[address] [facility] [id number] Glucose Ql (U) Negative Normal Comprehens trupti Internal Medicine Work Phone: Comment on above: PATIENT WAS FASTINGP ERFORMED BY: ORTIZ Crowelin6[address] [facility] [id number] Hemoglobin Ql (U) Negative Normal Compreh ensive Internal Medicine Work Phone: Comment on above: PATIENT WAS FASTINGP ERFORMED BY: ORTIZ Crowelin6[address] [facility] [id number] Ketones Ql (U) Negative Normal Comprehens trupti Internal Medicine Work Phone: Comment on above: PATIENT WAS FASTINGP ERFORMED BY: ORTIZ Crowelin6370 [facility] [id number] Leukocyte esterase Test strip Ql (U) Negative Normal [facility] Work Phone: Comment on above: PATIENT WAS FASTINGP ERFORMED BY: ORTIZ Crowelin6[address] [facility] [id number] Microscopic observation LM Nom (Urine sed) See below: Normal [facility] Work Phone: Comment on above: Microscopic was derrick cated and was performed. PATIENT WAS FASTINGP ERFORMED BY: ORTIZ Crowelin[address] [facility] [id number] Microscopic observation LM Nom (Urine sed) MICRON Normal [facility] Work Phone: Comment on above: Microscopic follows if indicated. PATIENT WAS FASTINGP ERFORMED BY: ORTIZ Crowelin[address] [facility] [id number] Nitrite Ql (U) Negative Normal Comprehens trupti Internal Medicine Work Phone: Comment on above: PATIENT WAS FASTINGP ERFORMED BY: ORTIZ Crowelin6370 [address] [facility]in [place] [id number] pH (U) 7.0 [pH] Normal 5.0-7.5 [facility] Work Phone: Comment on above: PATIENT WAS FASTINGP ERFORMED BY: ORTIZ Crowelin6[address] [facility] Hospitalbl[facility] [place] [id number] Protein Ql (U) Trace Normal Comprehens trupti Internal Medicine Work Phone: Comment on above: PATIENT WAS FASTINGP ERFORMED BY: ORTIZ LabCo Ybufwh3455 [address] RoadDublin [place] [id number] Specific gravity Relative Density (U) 1.017 1 Normal 1.005-1.03 0 [facility] Work Phone: Comment on above: PATIENT WAS FASTINGP ERFORMED BY: LabCo Uzsxfq9772 [address] RoadDublin [place] [id number] Urobilinogen Test strip mass conc (U) 0.2 mg/dL Normal 0.0-1.9 Comprehensiv e Internal Medicine Work Phone: Comment on above: PATIENT WAS FASTINGP ERFORMED BY: comment.comCenterpoint Medical Center Dzxayw6871 [address] [facility] Hospitalbl[facility] [place] [id number] Vitamin D Hydroxy (69758)Ord ered By: Chaplain on 10-19-2014 25-Hydroxyvitamin D2+25-Hydroxyvitamin D3 mass conc 39.6 ng/mL Normal 30.0-100.0 [facility] Work Phone: Comment on above: Vitamin D deficiency has been defined by the [place] ofMedicine and an Endocrine Society practice guideline as alevel of serum 25-OH vitamin D less than 20 ng/mL (1,2).The Endocrine Society went on to further define vitamin Dinsufficiency as a level between 21 and 29 ng/mL (2).1. IOM ([place] of Medicine). 2010. Dietary reference intakes for calcium and D. [place]: The National Academies Press.2. Allie MF, Emile [place], Jaja-Mg POOLE, et al. Evaluation, treatment, and prevention of vitamin D deficiency: an Endocrine Society clinical practice guideline. JCEM. 2010; 96(7):1911-30. PATIENT WAS FASTINGP ERFORMED BY: [facility] Uiaeoo4773 [address] RoadDublin [place] [id number] FECAL OCCULT HGB ASSAY- tube s sent home (02276)Ordered By: Cady Huber on 10-12-2014 Hemoglobin.gastrointes tinal Ql (St) Negative Normal [facility] Work Phone: Office Visit: [facility] 10-10-19 15 cardiac risk group C Invalid Interpretation Code [facility] Work Phone: General cardiovascular disease 10Y risk [#] [place].D'Agostino N/A Invalid Interpretation Code [facility] Work Phone: Replaced Document: Escobar Watsonon 10-10-2014 electrocardiogram interpretation Sinus Bradycardia WITHIN NORMAL LIMITS Invalid Interpretation Code [facility] Work Phone: GE use only - for LinkLogic import when terms are not otherwise specified 438 ms Invalid Interpretation Code [facility] Work Phone: P wave axis, electrocardiogram 33 deg Invalid Interpretation Code [facility] Work Phone: WI interval, electrocardiogram 164 ms Invalid Interpretation Code [facility] Work Phone: Pulse (Heart Rate) 55 /min Invalid Interpretation Code [facility] Work Phone: QRS axis, electrocardiogram 7 deg Invalid Interpretation Code [facility] Work Phone: QRS duration, electrocardiogram 90 ms Invalid Interpretation Code [facility] Work Phone: QT interval, electrocardiogram new path ms Invalid Interpretation Code [facility] Work Phone: T wave axis, electrocardiogram 41 deg Invalid Interpretation Code [facility] Work Phone: CBC WITH MANUAL DIFF (94072) Ordered By: Chaplain on 06-26-2014 Basophils #/vol (Bld) 0.0 {x10E3/uL} Normal 0.0-0.2 [facility] Work Phone: Comment on above: PATIENT WAS FASTINGP ERFORMED BY: ORTIZ Hungry LocalCarolinaEast Medical Center [id number] Information: [id number] Basophils/100 WBC (Bld) 1 % Normal [facility] Work Phone: Comment on above: PATIENT WAS FASTINGP ERFORMED BY: NexerciseCarolinaEast Medical Center [id number] Information: [id number] Eosinophils #/vol (Bld) 0.2 {x10E3/uL} Normal 0.0-0.4 [facility] Work Phone: Comment on above: PATIENT WAS FASTINGP ERFORMED BY: [place] 1064570 [facility] [id number] Information: [id number] Eosinophils/100 WBC (Bld) 3 % Normal [facility] Work Phone: Comment on above: PATIENT WAS FASTINGP ERFORMED BY: [address] [id number] Information: [id number] Erythrocyte distribution width Ratio (RBC) 13.4 % Normal 12.3-15.4 [facility] Work Phone: Comment on above: PATIENT WAS FASTINGP ERFORMED BY: [address] [id number] Information: [id number] Hematocrit Volume Fraction (Bld) 40.5 % Normal 34.0-46.6 [facility] Work Phone: Comment on above: PATIENT WAS FASTINGP ERFORMED BY: [address] [id number] Information: [id number] Hemoglobin mass conc (Bld) 13.1 g/dL Normal 11.1-15.9 [facility] Work Phone: Comment on above: PATIENT WAS FASTINGP ERFORMED BY: [place] 1064570 [facility] [id number] Information: [id number] Immature granulocytes #/vol (Bld) 0.0 {x10E3/uL} Normal 0.0-0.1 [facility] Work Phone: Comment on above: PATIENT WAS FASTINGP ERFORMED BY: [address] [id number] Information: [id number] Immature granulocytes/100 WBC (Bld) 0 % Normal [facility] Work Phone: Comment on above: PATIENT WAS FASTINGP ERFORMED BY: [place] 1064570 [facility] [id number] Information: [id number] Lymphocytes #/vol (Bld) 1.1 {x10E3/uL} Normal 0.7-3.1 [facility] Work Phone: Comment on above: PATIENT WAS FASTINGP ERFORMED BY: [address] [id number] Information: [id number] Lymphocytes/100 WBC (Bld) 21 % Normal [facility] Work Phone: Comment on above: PATIENT WAS FASTINGP ERFORMED BY: [address] [id number] Information: [id number] MCH Entitic mass (RBC) 29.4 pg Normal 26.6-33.0 [facility] Internal Medicine Work Phone: Comment on above: PATIENT WAS FASTINGP ERFORMED BY: [address] [id number] Information: [id number] MCHC mass conc (RBC) 32.3 g/dL Normal 31.5-35.7 [facility] Internal Medicine Work Phone: Comment on above: PATIENT WAS FASTINGP ERFORMED BY: [address] [id number] Information: [id number] MCV Entitic volume (RBC) 91 fL Normal 79-97 [facility] Internal Medicine Work Phone: Comment on above: PATIENT WAS FASTINGP ERFORMED BY: [address] [id number] Information: [id number] Monocytes #/vol (Bld) 0.5 {x10E3/uL} Normal 0.1-0.9 [facility] Work Phone: Comment on above: PATIENT WAS FASTINGP ERFORMED BY: ORTIZ RobledoCenterpoint Medical Center Ssniha5354 [facility] [id number] Information: [id number] Monocytes/100 WBC (Bld) 10 % Normal [facility] Work Phone: Comment on above: PATIENT WAS FASTINGP ERFORMED BY: [address] [id number] Information: [id number] Neutrophils #/vol (Bld) 3.7 {x10E3/uL} Normal 1.4-7.0 [facility] Work Phone: Comment on above: PATIENT WAS FASTINGP ERFORMED BY: [address] [id number] Information: [id number] Neutrophils/100 WBC (Bld) 65 % Normal [facility] Work Phone: Comment on above: PATIENT WAS FASTINGP ERFORMED BY: [address] [id number] Information: [id number] Platelets #/vol (Bld) 198 {x10E3/uL} Normal 150-379 [facility] Work Phone: Comment on above: PATIENT WAS FASTINGP ERFORMED BY: [address] [id number] Information: [id number] RBC #/vol (Bld) 4.45 {x10E6/uL} Normal 3.77-5.28 [facility] Internal Medicine Work Phone: Comment on above: PATIENT WAS FASTINGP ERFORMED BY: [facility]6370 [facility] [id number] Information: [id number] WBC #/vol (Bld) 5.6 {x10E3/uL} Normal 3.4-10.8 [facility] Internal Medicine Work Phone: Comment on above: PATIENT WAS FASTINGP ERFORMED BY: ORTIZ LabAleksandr Mkwfjp8105 [facility]in [place] [id number] Information: [id number] LIPID PANEL (03111)Ordered B y: Chaplain on 06-26-2014 Cholesterol in HDL mass conc 46 mg/dL Normal [facility] Work Phone: Comment on above: According to ATP-III Guidelines, HDL-C >59 mg/dL is considered anegative risk factor for CHD. PATIENT WAS FASTINGP ERFORMED BY: ORTIZ LabAleksandr CroweTusemk3784 [address] [facility] [id number] Cholesterol in LDL mass conc 130 mg/dL Abnormal 0-99 [facility] Work Phone: Comment on above: PATIENT WAS FASTINGP ERFORMED BY: ORTIZ Crowelin6370 [facility] [id number] Cholesterol in LDL/Cholesterol in HDL mass ratio 2.8 {ratio_units} Normal 0.0-3.2 [facility] Work Phone: Comment on above: LDL/HDL Ratio Men Wo men 1/2 Avg.Risk 1.0 1.5 Avg.Risk 3.6 3.2 2X Avg.Risk 6.2 5.0 3X Avg.Risk 8.0 6.1 PATIENT WAS FASTINGP ERFORMED BY: ORTIZ Crowelin6370 [facility] [id number] Cholesterol in VLDL mass conc 41 mg/dL Abnormal 5-40 [facility] Work Phone: Comment on above: PATIENT WAS FASTINGP ERFORMED BY: ORTIZ LabCoaustyn Uuehwm2504 [address] [facility]in [place] [id number] Cholesterol mass conc 217 mg/dL Abnormal 100-199 Com [facility] Internal Medicine Work Phone: Comment on above: PATIENT WAS FASTINGP ERFORMED BY: ORTIZ LabAleksandr CroweCcxbkj1155 [address] [facility] [id number] Triglyceride mass conc 203 mg/dL Abnormal 0-149 Co [facility] Internal Medicine Work Phone: Comment on above: PATIENT WAS FASTINGP ERFORMED BY: CB [facility] Lljiij2020 [address] RoadDublin [place] [id number] METABOLIC PANEL, COMPREHENSI VE ([id number])Ordered By: Chaplain on 06-26-2014 Albumin mass conc 4.0 g/dL Normal 3.5-4.8 Compreh ensive Internal Medicine Work Phone: Comment on above: PATIENT WAS FASTINGP ERFORMED BY: CB [facility] Fayznk2389 [address] RoadDublin [place] [id number] Albumin/Globulin mass ratio 1.7 {ratio} Normal 1.1-2.5 [facility] Work Phone: Comment on above: PATIENT WAS FASTINGP ERFORMED BY: CB [facility] Edbvvh4259 Rodriugez RoadDublin [place] [id number] ALP enzyme act/vol 80 [iU]/L Normal 39-117 Compre [facility] Internal Medicine Work Phone: Comment on above: PATIENT WAS FASTINGP ERFORMED BY: CB [facility] Xglyfw2082 [address] RoadDublin [place] [id number] ALT enzyme act/vol 8 [iU]/L Normal 0-32 Compre [facility] Internal Medicine Work Phone: Comment on above: PATIENT WAS FASTINGP ERFORMED BY: CB [facility] Cqmftu4710 [address] RoadDublin [place] [id number] AST enzyme act/vol 10 [iU]/L Normal 0-40 Compre [facility] Internal Medicine Work Phone: Comment on above: PATIENT WAS FASTINGP ERFORMED BY: CB [facility] Rnachz9286 Rodriguez RoadDublin [place] [id number] Bilirubin mass conc 0.3 mg/dL Normal 0.0-1.2 Compr [facility] Internal Medicine Work Phone: Comment on above: PATIENT WAS FASTINGP ERFORMED BY: CB [facility] Ufyhke9158 [address] RoadDublin [place] [id number] Calcium mass conc 9.4 mg/dL Normal 8.6-10.2 Compreh ensive Internal Medicine Work Phone: Comment on above: PATIENT WAS FASTINGP ERFORMED BY: ORTIZ [facility] Cdorgz8045 [address] RoadDublin [place] [id number] Chloride molar conc 100 mmol/L Normal 97-108 Compr ehensive Internal Medicine Work Phone: Comment on above: PATIENT WAS FASTINGP ERFORMED BY: ORTIZ [facility] Nxjrrh6332 [address] RoadDublin [place] [id number] CO2 molar conc 26 mmol/L Normal 18-29 Comprehens trupti Internal Medicine Work Phone: Comment on above: PATIENT WAS FASTINGP ERFORMED BY: ORTIZ [facility] Qwrqqz0750 [address] RoadDublin [place] [id number] Creatinine mass conc 0.80 mg/dL Normal 0.57-1.00 Comp [facility] Internal [facility] Work Phone: Comment on above: PATIENT WAS FASTINGP ERFORMED BY: ORTIZ [facility] Ucmitn0425 [address] RoadDublin [place] [id number] GFR/1.73 sq M predicted among blacks CKD-EPI vol rate/area (S/P/Bld) 83 mL/min/1.73 Normal [facility] Medicine Work Phone: Comment on above: PATIENT WAS FASTINGP ERFORMED BY: ORTIZ [facility] Gfypyb4293 [address] RoadDublin [place] [id number] GFR/1.73 sq M predicted among non-blacks CKD-EPI vol rate/area (S/P/Bld) 72 mL/min/1.73 Normal Comprehensiv e Internal Medicine Work Phone: Comment on above: PATIENT WAS FASTINGP ERFORMED BY: CB [facility] Sshgmg8847 [address] RoadDublin [place] [id number] Globulin mass conc (S) 2.3 g/dL Normal 1.5-4.5 [facility] Internal [facility] Work Phone: Comment on above: PATIENT WAS FASTINGP ERFORMED BY: CB [facility] Bnwirn4806 [address] RoadDublin [place] [id number] Glucose mass conc 90 mg/dL Normal 65-99 Compreh ensive Internal Medicine Work Phone: Comment on above: PATIENT WAS FASTINGP ERFORMED BY: ORTIZ LabAleksandr CroweMblumm99[address] [facility] [id number] Potassium molar conc 4.0 mmol/L Normal 3.5-5.2 Comp rehensive Internal Medicine Work Phone: Comment on above: PATIENT WAS FASTINGP ERFORMED BY: ORTIZ LabAleksandr CroweKpnexi9827 [address] [facility] [id number] Protein mass conc 6.3 g/dL Normal 6.0-8.5 Compreh ensive Internal Medicine Work Phone: Comment on above: PATIENT WAS FASTINGP ERFORMED BY: ORTIZ LabAleksandr CroweFhizgd7484 [address] [facility] [id number] Sodium molar conc 142 mmol/L Normal 134-144 Compreh ensive Internal Medicine Work Phone: Comment on above: PATIENT WAS FASTINGP ERFORMED BY: ORTIZ Chester6370 [facility] [id number] Urea nitrogen mass conc 10 mg/dL Normal 8-27 [facility] Medicine Work Phone: Comment on above: PATIENT WAS FASTINGP ERFORMED BY: ORTIZ Crowelin6370 [facility] [id number] Urea nitrogen/Creatinine mass ratio 13 mg/mg Normal 11-26 [facility] Medicine Work Phone: Comment on above: PATIENT WAS FASTINGP ERFORMED BY: ORTIZ Crowelin6370 [facility] [id number] MICROALBUMINOrdered By: Syst em Inspector [employer]rig[employer] on 06-26-2014 Albumin DL <= 20 mg/L mass conc (U) 12.3 ug/mL Normal 0.0-17.0 [facility] Medicine Work Phone: Comment on above: PATIENT WAS FASTINGP ERFORMED BY: ORTIZ Hou Hqwlnw6663 [facility] [id number] Albumin/Creatinine mass ratio (U) 7.0 {mg/g_creat} Normal 0.0-30.0 [facility] Medicine Work Phone: Comment on above: PATIENT WAS FASTINGP ERFORMED BY: ORTIZ Crowelin6370 [address] RoadDublin [place] [id number] Creatinine mass conc (U) 176.5 mg/dL Normal 15.0-278.0 [facility] Internal Medicine Work Phone: Comment on above: PATIENT WAS FASTINGP ERFORMED BY: ORTIZ Ameya Qfhytg5863 [address] RoadDublin [place] [id number] TSH ([id number])Ordered By: [employer]e m Inspector [employer] on 06-26-2014 Thyrotropin Qn 1.220 {uIU/mL} Normal 0.450-4.50 0 [facility] Internal Medicine Work Phone: Comment on above: PATIENT WAS FASTINGP ERFORMED BY: ORTIZ Ameya Dvujrn4529 [address] [facility] [place] [id number] URINALYSIS, W/ MICRO ([id number]) Ordered By: Chaplain on 06-26-2014 Appearance Nom (U) Clear Normal Compre hensive Internal Medicine Work Phone: Comment on above: PATIENT WAS FASTINGP ERFORMED BY: ORTIZ [facility]Center[facility] Mumbok5371 Rodriguez RoadUnc Health Blue Ridgein [place] [id number] Bilirubin Ql (U) Negative Normal Comprehe nsive Internal Medicine Work Phone: Comment on above: PATIENT WAS FASTINGP ERFORMED BY: ORTIZ Ameyaaustyn Uktmga5400 [address] [facility]in [place] [id number] Color Nom (U) Yellow Normal Comprehensi ve Internal Medicine Work Phone: Comment on above: PATIENT WAS FASTINGP ERFORMED BY: ORTIZ [facility] Myoxph7348 [address] RoadDublin [place] [id number] Glucose Ql (U) Negative Normal Comprehens trupti Internal Medicine Work Phone: Comment on above: PATIENT WAS FASTINGP ERFORMED BY: ORTIZ LabKellie Qluxkn7877 [address] RoadDublin [place] [id number] Hemoglobin Ql (U) Negative Normal Compreh ensive Internal Medicine Work Phone: Comment on above: PATIENT WAS FASTINGP ERFORMED BY: ORTIZ [facility] Ezttse3636 [address] RoadDublin [place] [id number] Ketones Ql (U) Negative Normal Comprehens trupti Internal Medicine Work Phone: Comment on above: PATIENT WAS FASTINGP ERFORMED BY: ORTIZ Chester6[address] [facility] [place] [id number] Leukocyte esterase Test strip Ql (U) Negative Normal [facility] Internal Medicine Work Phone: Comment on above: PATIENT WAS FASTINGP ERFORMED BY: ORTIZ Chester6[address] [facility] [place] [id number] Microscopic observation LM Nom (Urine sed) See below: Normal [facility] Internal Medicine Work Phone: Comment on above: Microscopic was derrick cated and was performed. PATIENT WAS FASTINGP ERFORMED BY: ORTIZ Chester[address] [facility]bl[facility] [place] [id number] Microscopic observation LM Nom (Urine sed) MICRON Normal [facility] Internal Medicine Work Phone: Comment on above: Microscopic follows if indicated. PATIENT WAS FASTINGP ERFORMED BY: ORTIZ Chester6[address] [facility]in [place] [id number] Nitrite Ql (U) Negative Normal Comprehens trupti Internal Medicine Work Phone: Comment on above: PATIENT WAS FASTINGP ERFORMED BY: ORTIZ Chester[address] [facility] [id number] pH (U) 5.5 [pH] Normal 5.0-7.5 [facility] Internal Medicine Work Phone: Comment on above: PATIENT WAS FASTINGP ERFORMED BY: ORTIZ Chester6[address] [facility]in [place] [id number] Protein Ql (U) Negative Normal Comprehens trupti Internal Medicine Work Phone: Comment on above: PATIENT WAS FASTINGP ERFORMED BY: ORTIZ Chester6[address] [facility]in [place] [id number] Specific gravity Relative Density (U) 1.020 1 Normal 1.005-1.03 0 [facility] Internal Medicine Work Phone: Comment on above: PATIENT WAS FASTINGP ERFORMED BY: ORTIZ Crowelin6[address] [facility]in [place] [id number] Urobilinogen Test strip mass conc (U) 0.2 mg/dL Normal 0.0-1.9 Comprehensiv e Internal Medicine Work Phone: Comment on above: PATIENT WAS FASTINGP ERFORMED BY: ORTIZ Hungry Localblin [place] [id number] Vitamin D Hydroxy (25936)Ord ered By: Chaplain on 06-26-2014 25-Hydroxyvitamin D2+25-Hydroxyvitamin D3 mass conc 38.9 ng/mL Normal 30.0-100.0 [facility] Medicine Work Phone: Comment on above: Vitamin D deficiency has been defined by the [place] ofMedicine and an Endocrine Society practice guideline as alevel of serum 25-OH vitamin D less than 20 ng/mL (1,2).The Endocrine Society went on to further define vitamin Dinsufficiency as a level between 21 and 29 ng/mL (2).1. IOM ([place] of Medicine). 2010. Dietary reference intakes for calcium and D. [place]: The National Academies Press.2. Allie MF, Emile PONCE, Natalie POOLE, et al. Evaluation, treatment, and prevention of vitamin D deficiency: an Endocrine Society clinical practice guideline. JCEM. 2010; 96(7):1911-30. PATIENT WAS FASTINGP ERFORMED BY: Zaldiva70 [employer] [place] [id number] URINE IBRAHIMA CULTURE-IDENTIFICA [place] (50061)Ordered By: Chaplain on 04-17-2014 Bacteria identified Cx Nom (U) Escherichia coli Abnormal [facility] Internal Medicine Work Phone: Comment on above: Greater than 100,000 colony forming units per mL PATIENT NOT FASTINGP ERFORMED BY: Zaldiva70 [employer] Data Solutionsblin [place] [id number] Information: [id number] Bacteria identified Cx Nom (U) Final report Abnormal [facility] Internal Medicine Work Phone: Comment on above: PATIENT NOT FASTINGP ERFORMED BY: Zaldiva70 [employer] Data Solutionsblin [place] [id number] Information: [id number] Other Antibiotic sus Indiewalls NoteWagon [facility] prehensive Internal Medicine Work Phone: Comment on above: S = Susceptibl e; I = Intermediate; R = Resistant P = Positive; N = Negative MICS are expressed in micrograms per mL Antibiotic RSLT#1 RSLT#2 RSLT#3 RSLT#4Amoxicillin/Clavulanic Acid SAmpicillin SCefepime SCeftriaxone SCefuroxime SCephalothin SCiprofloxacin SErtapenem SGentamicin SImipenem SLevofloxacin SNitrofurantoin SPiperacillin STetracycline STobramycin STrimethoprim/Sulfa S PATIENT NOT FASTINGP ERFORMED BY: ORTIZ [facility] Bxmpjz0063 RodriguezSSM Rehab [id number] Information: [id number] Urinalysis, Office ([id number])Or dered By: Alyson Dixon on 04-17-2014 Bilirubin [...] Medicine Work Phone: CBC WITH MANUAL DIFF (14424) Ordered By: Chaplain on 04-06-2014 Basophils #/vol (Bld) 0.0 {x10E3/uL} Normal 0.0-0.2 [facility] Work Phone: Comment on above: PATIENT NOT FASTINGP ERFORMED BY: ORTIZ RobledoCoaustyn ChesterAkbvdy7880 [facility] [id number] Information: [id number] Basophils/100 WBC (Bld) 0 % Normal 0-3 [facility] Medicine Work Phone: Comment on above: PATIENT NOT FASTINGP ERFORMED BY: ORTIZ [facility] Ucwixn3424 [facility] [id number] Information: [id number] Eosinophils #/vol (Bld) 0.1 {x10E3/uL} Normal 0.0-0.4 [facility] Medicine Work Phone: Comment on above: PATIENT NOT FASTINGP ERFORMED BY: ORTIZ RobledoCo Ppkjfs5212 [facility] [id number] Information: [id number] Eosinophils/100 WBC (Bld) 2 % Normal 0-5 [facility] Medicine Work Phone: Comment on above: PATIENT NOT FASTINGP ERFORMED BY: ORTIZ [facility] Poqnrl1230 [facility] [id number] Information: [id number] Erythrocyte distribution width Ratio (RBC) 13.5 % Normal 12.3-15.4 [facility] Medicine Work Phone: Comment on above: PATIENT NOT FASTINGP ERFORMED BY: ORTIZ LabCoCare One at Raritan Bay Medical CenterBlxtxf9976 [facility] [id number] Information: [id number] Hematocrit Volume Fraction (Bld) 38.1 % Normal 34.0-46.6 [facility] Medicine Work Phone: Comment on above: PATIENT NOT FASTINGP ERFORMED BY: ORTIZ [facility] Xhwyfh9484 [facility] [id number] Information: [id number] Hemoglobin mass conc (Bld) 12.8 g/dL Normal 11.1-15.9 [facility] Work Phone: Comment on above: PATIENT NOT FASTINGP ERFORMED BY: ORTIZ LabCoCare [facility] at [facility]ar[facility] Medical CenterCddbhq5605 [facility] [id number] Information: [id number] Immature granulocytes #/vol (Bld) 0.0 {x10E3/uL} Normal 0.0-0.1 [facility] Medicine Work Phone: Comment on above: PATIENT NOT FASTINGP ERFORMED BY: LabCoMichael [place]ille 5047370 [facility] [id number] Information: [id number] Immature granulocytes/100 WBC (Bld) 0 % Normal 0-2 [facility] Medicine Work Phone: Comment on above: PATIENT NOT FASTINGP ERFORMED BY: ORTIZ LabCoCare [facility] at Rar[facility] Medical CenterKonewb6846 [facility] [id number] Information: [id number] Lymphocytes #/vol (Bld) 1.5 {x10E3/uL} Normal 0.7-3.1 [facility] Medicine Work Phone: Comment on above: PATIENT NOT FASTINGP ERFORMED BY: ORTIZ LabCoMichael [place] 5047370 [facility] [id number] Information: [id number] Lymphocytes/100 WBC (Bld) 26 % Normal 14-46 [facility] Medicine Work Phone: Comment on above: PATIENT NOT FASTINGP ERFORMED BY: LabCoMichael [place] 5047370 [facility] [id number] Information: [id number] MCH Entitic mass (RBC) 31.1 pg Normal 26.6-33.0 Co [facility] Internal Medicine Work Phone: Comment on above: PATIENT NOT FASTINGP ERFORMED BY: LabCoCare One at Rar[facility] Medical CenterZxtdoi6363 [facility] [id number] Information: [id number] MCHC mass conc (RBC) 33.6 g/dL Normal 31.5-35.7 [facility] Internal Medicine Work Phone: Comment on above: PATIENT NOT FASTINGP ERFORMED BY: ORTIZ [facility] Qiylzb7472 [address] [facility] Hospitalin [place] [id number] Information: [id number] MCV Entitic volume (RBC) 93 fL Normal 79-97 [facility] Medicine Work Phone: Comment on above: PATIENT NOT FASTINGP ERFORMED BY: [facility] Boswlz4897 [address] [facility] [id number] Information: [id number] Monocytes #/vol (Bld) 0.5 {x10E3/uL} Normal 0.1-0.9 [facility] Medicine Work Phone: Comment on above: PATIENT NOT FASTINGP ERFORMED BY: LabK[facility]6[address] [facility] [id number] Information: [id number] Monocytes/100 WBC (Bld) 9 % Normal 4-12 [facility] Internal Medicine Work Phone: Comment on above: PATIENT NOT FASTINGP ERFORMED BY: LabCoCare One at Rar[facility] Medical CenterXqrwfu9907 [address] [facility] [id number] Information: [id number] Neutrophils #/vol (Bld) 3.5 {x10E3/uL} Normal 1.4-7.0 [facility] Medicine Work Phone: Comment on above: PATIENT NOT FASTINGP ERFORMED BY: LabCoPresbyterian Santa Fe Medical CenterBflmqj6239 [address] [facility] [id number] Information: [id number] Neutrophils/100 WBC (Bld) 63 % Normal 40-74 [facility] Medicine Work Phone: Comment on above: PATIENT NOT FASTINGP ERFORMED BY: [facility] Qowctc6057 [address] [facility] Hospitalin [place] [id number] Information: [id number] Platelets #/vol (Bld) 193 {x10E3/uL} Normal 150-379 [facility] Medicine Work Phone: Comment on above: PATIENT NOT FASTINGP ERFORMED BY: [facility] Tvsaik6759 [address] [facility] [id number] Information: [id number] RBC #/vol (Bld) 4.12 {x10E6/uL} Normal 3.77-5.28 [facility]ensive Internal [facility] Work Phone: Comment on above: PATIENT NOT FASTINGP ERFORMED BY: ORTIZ MeenaAleksandr Chester6370 RodriguezWashington [facility] Medical CenterJohnCarolinaEast Medical Center [id number] Information: [id number] WBC #/vol (Bld) 5.6 {x10E3/uL} Normal 3.4-10.8 [facility] Internal Medicine Work Phone: Comment on above: PATIENT NOT FASTINGP ERFORMED BY: ORTIZ Chester6370 [facility] [id number] Information: [id number] LIPID PANEL ([id number])Ordered B y: Chaplain on 04-06-2014 Cholesterol in HDL mass conc 54 mg/dL Normal [facility] Medicine Work Phone: Comment on above: According to ATP-III Guidelines, HDL-C >59 mg/dL is considered anegative risk factor for CHD. PATIENT NOT FASTINGP ERFORMED BY: ORTIZ Chester6370 [facility] [id number] Cholesterol in LDL mass conc 63 mg/dL Normal 0-99 [facility] Medicine Work Phone: Comment on above: PATIENT NOT FASTINGP ERFORMED BY: ORTIZ Chester6370 [facility] [id number] Cholesterol in LDL/Cholesterol in HDL mass ratio 1.2 {ratio_units} Normal 0.0-3.2 [facility] Work Phone: Comment on above: PATIENT NOT FASTINGP ERFORMED BY: ORTIZ LabAleksandr CroweJhxvin4169 [facility] [id number] Cholesterol in VLDL mass conc 41 mg/dL Abnormal 5-40 [facility] Medicine Work Phone: Comment on above: PATIENT NOT FASTINGP ERFORMED BY: ORTIZ Crowelin6370 [facility] [id number] Cholesterol mass conc 158 mg/dL Normal 100-[address] [facility] Internal [facility] Work Phone: Comment on above: PATIENT NOT FASTINGP ERFORMED BY: ORTIZ [facility] Dggbdt0053 Rodriguez RoadDublin [place] [id number] Triglyceride mass conc 206 mg/dL Abnormal 0-149 [address] [facility] Internal [facility] Work Phone: Comment on above: PATIENT NOT FASTINGP ERFORMED BY: CB [facility] Ppscbz7969 [address] [facility] [place] [id number] METABOLIC PANEL, COMPREHENSI VE (71112)Ordered By: Chaplain on 04-06-2014 Albumin mass conc 4.3 g/dL Normal 3.5-4.8 Compreh [facility] Internal Medicine Work Phone: Comment on above: PATIENT NOT FASTINGP ERFORMED BY: ORTIZ [facility] Reymgc3494 Rodriguez RoadUnc Health Blue Ridgein [place] [id number] Albumin/Globulin mass ratio 2.2 {ratio} Normal 1.1-2.5 [facility] Internal Medicine Work Phone: Comment on above: PATIENT NOT FASTINGP ERFORMED BY: CB [facility] Jdytgd8215 [address] [facility]in [place] [id number] ALP enzyme act/vol 87 [iU]/L Normal 39-117 [facility] Internal Medicine Work Phone: Comment on above: PATIENT NOT FASTINGP ERFORMED BY: CB [facility] Gxdgwc4876 [address] [facility]in [place] [id number] ALT enzyme act/vol 14 [iU]/L Normal 0-32 [facility] Internal Medicine Work Phone: Comment on above: PATIENT NOT FASTINGP ERFORMED BY: CB [facility] Ohlubx7249 [address] Roadblin [place] [id number] AST enzyme act/vol 18 [iU]/L Normal 0-40 [facility] Internal Medicine Work Phone: Comment on above: PATIENT NOT FASTINGP ERFORMED BY: CB [facility] Gdhqmt2447 [address] Roadblin [place] [id number] Bilirubin mass conc 0.3 mg/dL Normal 0.0-1.2 Compr ehensive Internal Medicine Work Phone: Comment on above: PATIENT NOT FASTINGP ERFORMED BY: CB [facility] Lzxahd6056 [address] RoadDublin [place] [id number] Calcium mass conc 10.0 mg/dL Normal 8.6-10.2 Compreh ensive Internal Medicine Work Phone: Comment on above: PATIENT NOT FASTINGP ERFORMED BY: CB [facility] Dtikih2960 [address] RoadDublin [place] [id number] Chloride molar conc 101 mmol/L Normal 97-108 Compr ehensive Internal Medicine Work Phone: Comment on above: PATIENT NOT FASTINGP ERFORMED BY: CB [facility] Fmymjx8756 [address] RoadDublin [place] [id number] CO2 molar conc 28 mmol/L Normal 18-29 Comprehens trupti Internal Medicine Work Phone: Comment on above: PATIENT NOT FASTINGP ERFORMED BY: CB [facility] Dkuava0269 [address] Roadblin [place] [id number] Creatinine mass conc 0.73 mg/dL Normal 0.57-1.00 Comp [facility]ensive Internal Medicine Work Phone: Comment on above: PATIENT NOT FASTINGP ERFORMED BY: CB [facility] Aqusrk4246 Rodriguez RoadUnc Health Blue Ridgein [place] [id number] GFR/1.73 sq M predicted among blacks CKD-EPI vol rate/area (S/P/Bld) 94 mL/min/1.73 Normal [facility] Medicine Work Phone: Comment on above: PATIENT NOT FASTINGP ERFORMED BY: CB [facility] Gnxfbv0627 [address] RoadDublin [place] [id number] GFR/1.73 sq M predicted among non-blacks CKD-EPI vol rate/area (S/P/Bld) 81 mL/min/1.73 Normal Comprehensiv e Internal Medicine Work Phone: Comment on above: PATIENT NOT FASTINGP ERFORMED BY: CB [facility] Ftdhob6044 [address] RoadDublin [place] [id number] Globulin mass conc (S) 2.0 g/dL Normal 1.5-4.5 Co [facility] divisionehensive Internal Medicine Work Phone: Comment on above: PATIENT NOT FASTINGP ERFORMED BY: ORTIZ LabAleksandr CroweRwmebn6824 [address] [facility]bl[facility] [place] [id number] Glucose mass conc 87 mg/dL Normal 65-99 Compreh ensive Internal Medicine Work Phone: Comment on above: PATIENT NOT FASTINGP ERFORMED BY: ORTIZ LabAleksandr CroweBtoaji8338 [address] Roadblin [place] [id number] Potassium molar conc 5.0 mmol/L Normal 3.5-5.2 Comp rehensive Internal Medicine Work Phone: Comment on above: PATIENT NOT FASTINGP ERFORMED BY: ORTIZ Crowelin6370 [address] Roadbl[address] [place] [id number] Protein mass conc 6.3 g/dL Normal 6.0-8.5 Compreh ensive Internal Medicine Work Phone: Comment on above: PATIENT NOT FASTINGP ERFORMED BY: ORTIZ Crowelin6370 [address] [facility] [place] [id number] Sodium molar conc 142 mmol/L Normal 134-144 Compreh ensive Internal Medicine Work Phone: Comment on above: PATIENT NOT FASTINGP ERFORMED BY: ORTIZ Crowelin6370 [address] [facility]in [place] [id number] Urea nitrogen mass conc 12 mg/dL Normal 8-27 [facility] Work Phone: Comment on above: PATIENT NOT FASTINGP ERFORMED BY: ORTIZ Crowelin6370 [address] [facility] [place] [id number] Urea nitrogen/Creatinine mass ratio 16 mg/mg Normal 11-26 [facility] Work Phone: Comment on above: PATIENT NOT FASTINGP ERFORMED BY: ORTIZ LabAleksandr CroweXlqevc8164 [address] [facility]bl[facility] [place] [id number] TSH ([id number])Ordered By: Samantha Montelongo on 04-06-2014 Thyrotropin Qn 0.748 {uIU/mL} Normal 0.450-4.50 0 [facility] Work Phone: Comment on above: PATIENT NOT FASTINGP ERFORMED BY: [employer]6370 [employer] Data Solutionsblin [place] [id number] Vitamin D Hydroxy (60692)Ord ered By: Chaplain on 04-06-2014 25-Hydroxyvitamin D2+25-Hydroxyvitamin D3 mass conc 29.5 ng/mL Abnormal 30.0-100.0 [facility] Work Phone: Comment on above: Vitamin D deficiency has been defined by the [place] ofUc Healthcine and an Endocrine Society practice guideline as alevel of serum 25-OH vitamin D less than 20 ng/mL (1,2).The Endocrine Society went on to further define vitamin Dinsufficiency as a level between 21 and 29 ng/mL (2).1. IOM ([place] of Medicine). 2010. Dietary reference intakes for calcium and D. [place]: The National Academies Press.2. Allie MF, Emile PONCE, Natalie POOLE, et al. Evaluation, treatment, and prevention of vitamin D deficiency: an Endocrine Society clinical practice guideline. JCEM. 2010; 96(7):1911-30. PATIENT NOT FASTINGP ERFORMED BY: [employer]6370 [employer] Data Solutionsin [place] [id number] CBC WITH MANUAL DIFF ([id number]) Ordered By: Chaplain on 12-22-2013 Basophils #/vol (Bld) 0.0 {x10E3/uL} Normal 0.0-0.2 [facility] Work Phone: Comment on above: PATIENT NOT FASTINGP ERFORMED BY: [employer]6370 HealthPlan Data SolutionsCarolinaEast Medical Center [id number] Information: [id number], [id number] Basophils/100 WBC (Bld) 0 % Normal 0-3 [facility] Work Phone: Comment on above: PATIENT NOT FASTINGP ERFORMED BY: [employer]6370 [employer] Solutionsin [place] [id number] Information: [id number], [id number] Eosinophils #/vol (Bld) 0.1 {x10E3/uL} Normal 0.0-0.4 [facility] Work Phone: Comment on above: PATIENT NOT FASTINGP ERFORMED BY: ORTIZ RobledoCo Wkluwj0318 [address] [facility] [id number] Information: [id number], [id number] Eosinophils/100 WBC (Bld) 2 % Normal 0-5 [facility] Work Phone: Comment on above: PATIENT NOT FASTINGP ERFORMED BY: LabCoCare [facility] at Raritan Bay Medical CenterIixnwc4866 [facility] [id number] Information: [id number] Erythrocyte distribution width Ratio (RBC) 13.7 % Normal 12.3-15.4 Comprehensive Internal Medicine Work Phone: Comment on above: PATIENT NOT FASTINGP ERFORMED BY: ORTIZ RobledoCo Boliov6280 [facility] [id number] Information: [id number] Hematocrit Volume Fraction (Bld) 38.4 % Normal 34.0-46.6 [facility] Work Phone: Comment on above: PATIENT NOT FASTINGP ERFORMED BY: MeenaCoCare One at [facility] Medical CenterVvcdgy1536 [facility] [id number] Information: [id number], [id number] Hemoglobin mass conc (Bld) 12.8 g/dL Normal 11.1-15.9 [facility] Work Phone: Comment on above: PATIENT NOT FASTINGP ERFORMED BY: LabCoCare One at [facility] Medical CenterUyptqf4268 [facility] [id number] Information: [id number] Immature granulocytes #/vol (Bld) 0.0 {x10E3/uL} Normal 0.0-0.1 [facility] Work Phone: Comment on above: PATIENT NOT FASTINGP ERFORMED BY: LabCo Mprxpw2422 [facility] [id number] Information: [id number], [id number] Immature granulocytes/100 WBC (Bld) 0 % Normal 0-2 [facility] Work Phone: Comment on above: PATIENT NOT FASTINGP ERFORMED BY: LabCoMichael Ville 5047370 [facility] [id number] Information: [id number], 237236 Lymphocytes #/vol (Bld) 1.1 {x10E3/uL} Normal 0.7-3.1 [facility] Work Phone: Comment on above: PATIENT NOT FASTINGP ERFORMED BY: ORTIZ LabCoCare One at [facility] CenterXybqxe2761 [facility] [id number] Information: [id number] [id number] Lymphocytes/100 WBC (Bld) 22 % Normal 14-46 [facility] Work Phone: Comment on above: PATIENT NOT FASTINGP ERFORMED BY: LabCoCare One at [facility] CenterRkklsg0958 [facility] [id number] Information: H63612, 089970 MCH Entitic mass (RBC) 30.6 pg Normal 26.6-33.0 [facility] Internal Medicine Work Phone: Comment on above: PATIENT NOT FASTINGP ERFORMED BY: ORTIZ LabCoCare One at [facility] Medical CenterPtwxnw5982 [facility] [id number] Information: G86357, 173957 MCHC mass conc (RBC) 33.3 g/dL Normal 31.5-35.7 [facility] Internal Medicine Work Phone: Comment on above: PATIENT NOT FASTINGP ERFORMED BY: ORTIZ LabCoCare One at [facility] Medical CenterEyaeht6155 [facility] [id number] Information: [id number], 913145 MCV Entitic volume (RBC) 92 fL Normal 79-97 [facility] Internal Medicine Work Phone: Comment on above: PATIENT NOT FASTINGP ERFORMED BY: LabCo Oyhhhf3162 [facility] [id number] Information: E11172, 404820 Monocytes #/vol (Bld) 0.4 {x10E3/uL} Normal 0.1-0.9 [facility] Work Phone: Comment on above: PATIENT NOT FASTINGP ERFORMED BY: LabCo Cpbpsd2791 [facility] [id number] Information: [id number], 592662 Monocytes/100 WBC (Bld) 8 % Normal 4-12 [facility] Work Phone: Comment on above: PATIENT NOT FASTINGP ERFORMED BY: ORTIZ Chester6370 [facility] [id number] Information: M54298, 896208 Neutrophils #/vol (Bld) 3.3 {x10E3/uL} Normal 1.4-7.0 [facility] Work Phone: Comment on above: PATIENT NOT FASTINGP ERFORMED BY: ORTIZ [facility] Ajjimm4009 [facility] [id number] Information: A90928, 783571 Neutrophils/100 WBC (Bld) 68 % Normal 40-74 [facility] Work Phone: Comment on above: PATIENT NOT FASTINGP ERFORMED BY: ORTIZ MeenaCo Cjlyof3088 [facility] [id number] Information: [id number], [id number] Platelets #/vol (Bld) 190 {x10E3/uL} Normal 155-379 [facility] Work Phone: Comment on above: PATIENT NOT FASTINGP ERFORMED BY: ORTIZ Nilda Chester6370 [facility] [id number] Information: B88192, 568115 RBC #/vol (Bld) 4.18 {x10E6/uL} Normal 3.77-5.28 [facility] Internal Medicine Work Phone: Comment on above: PATIENT NOT FASTINGP ERFORMED BY: ORTIZ [facility] Hbpxuj6731 [facility] [id number] Information: B54217, 229174 WBC #/vol (Bld) 4.8 {x10E3/uL} Normal 3.4-10.8 [facility] Internal Medicine Work Phone: Comment on above: PATIENT NOT FASTINGP ERFORMED BY: ORTIZ Lab[facility] Uydrqg6428 [facility] [id number] Information: F67756, 026341 D-Dimer (20913)Ordered By: Dc ystem Inspector Heating And Refrigeration on 12-22-2013 D-Dimer (75762) 0.40 {ug_FEU/mL} Normal 0.00-0.49 [facility] Internal Medicine Work Phone: Comment on above: In conjunction with a non-high clinical probability assessment, anormal (<0.50 ug FEU/mL) result excludes deep vein thrombosis (DVT)and pulmonary embolism (PE) with high sensitivity. PATIENT NOT FASTINGP ERFORMED BY: [employer]70 [facility] Data SolutionsCarolinaEast [facility] Center [id number] PT (Prothrobim Time) (76357) Ordered By: Chaplain on 12-22-2013 INR Coag RelTime (PPP) 1.0 {INR} Normal 0.8-1.2 [facility] Internal Medicine Work Phone: Comment on above: Reference interval i s for non-anticoagulated patients. . Suggested INR therapeutic range for Vitamin K antagonist therapy: Standard Dose (moderate intensity therapeutic range): 2.0 - 3.0 Higher intensity therapeutic range 2.5 - 3.5 PATIENT NOT FASTINGP ERFORMED BY: [employer]70 Health[facility] Data SolutionsCarolinaEast Medical Center [id number] Prothrombin time (PT) Coag time (PPP) 10.6 {sec} Normal 9.1-12.0 [facility] Internal Medicine Work Phone: Comment on above: PATIENT NOT FASTINGP ERFORMED BY: [employer]70 [address] Mozat Pte LtdFormerly [facility] [id number] PTT (Activated Partial Throm boplastin Time) (11842)Ordered By: Chaplain on 12-22-2013 aPTT Coag time (PPP) 26 {sec} Normal 24-33 [facility] Internal Medicine Work Phone: Comment on above: This test has not be en validated for monitoring unfractionated heparintherapy. aPTT-based therapeutic ranges for unfractionated heparintherapy have not been established. For general guidelines onHeparin monitoring, refer to the [employer] Directory of Services. PATIENT NOT FASTINGP ERFORMED BY: ORTIZ [employer] Guixai8961 [facility]in [place] [id number] MICROALBUMINOrdered By: Syst em Inspector [employer]ating And Refrigeration on 12-05-2013 Albumin DL <= 20 mg/L mass conc (U) 23.2 ug/mL Abnormal 0.0-17.0 [facility] Work Phone: Comment on above: PATIENT NOT FASTINGP ERFORMED BY: ROTIZ [facility] Zeuvse1136 [address] RoadUnc Health Blue Ridgein [place] [id number] Albumin/Creatinine mass ratio (U) 14.1 {mg/g_creat} Normal 0.0-30.0 [facility] Work Phone: Comment on above: PATIENT NOT FASTINGP ERFORMED BY: ORTIZ Nilda Crowelin6370 [address] [facility] [id number] Creatinine mass conc (U) 164.8 mg/dL Normal 15.0-278.0 [facility] Work Phone: Comment on above: PATIENT NOT FASTINGP ERFORMED BY: ORTIZ LabKellie Cmoifi2273 [address] [facility] [id number] URINALYSIS, W/ MICRO (06893) Ordered By: Chaplain on 12-05-2013 Appearance Nom (U) Cloudy Abnormal Compre hensive Internal Medicine Work Phone: Comment on above: PATIENT NOT FASTINGP ERFORMED BY: ORTIZ [facility] Dnndzl8309 [address] [facility] [id number] Information: [id number] Bilirubin Ql (U) Negative Normal Comprehe nsive Internal Medicine Work Phone: Comment on above: PATIENT NOT FASTINGP ERFORMED BY: ORTIZ [facility] Nrqxuy6364 [facility]in [place] [id number] Information: P80321 Color Nom (U) Yellow Normal Comprehensi ve Internal Medicine Work Phone: Comment on above: PATIENT NOT FASTINGP ERFORMED BY: ORTIZ [facility] Gsaqjo0175 [facility]in [place] [id number] Information: G72580 Glucose Ql (U) Negative Normal Comprehens trupti Internal Medicine Work Phone: Comment on above: PATIENT NOT FASTINGP ERFORMED BY: ORTIZ [facility] Dclxkh0125 Rodriguez RoadDublin [place] [id number] Information: M88591 Hemoglobin Ql (U) Negative Normal Compreh ensive Internal Medicine Work Phone: Comment on above: PATIENT NOT FASTINGP ERFORMED BY: ORTIZ [facility] Iimaoy7762 Rodriguez RoadDublin [place] [id number] Information: S68484 Ketones Ql (U) Negative Normal Comprehens trupti Internal Medicine Work Phone: Comment on above: PATIENT NOT FASTINGP ERFORMED BY: ORTIZ [facility] Mwqweu9549 Rodriguez RoadDublin [place] [id number] Information: E97707 Leukocyte esterase Test strip Ql (U) Negative Normal [facility] Work Phone: Comment on above: PATIENT NOT FASTINGP ERFORMED BY: ORTIZ Crowelin6370 [address] RoadUnc Health Blue Ridgein [place] [id number] Information: T48873 Microscopic observation LM Nom (Urine sed) See below: Normal [facility] Work Phone: Comment on above: PATIENT NOT FASTINGP ERFORMED BY: ORTIZ Crowelin6370 [address] RoadUnc Health Blue Ridgein [place] [id number] Information: X50138 Microscopic observation LM Nom (Urine sed) MICRON Normal [facility] Work Phone: Comment on above: Microscopic follows if indicated. PATIENT NOT FASTINGP ERFORMED BY: ORTIZ [facility] Swtcyc0951 Rodriguez Roadblin [place] [id number] Information: M53319 Nitrite Ql (U) Negative Normal Comprehens trupti Internal Medicine Work Phone: Comment on above: PATIENT NOT FASTINGP ERFORMED BY: ORTIZ [facility] Xzowty9542 Rodriguez RoadUnc Health Blue Ridgein [place] [id number] Information: E61879 pH (U) 5.0 [pH] Normal 5.0-7.5 [facility] Work Phone: Comment on above: PATIENT NOT FASTINGP ERFORMED BY: [facility]6370 [facility] [id number] Information: G26991 Protein Ql (U) Negative Normal Comprehens trupti Internal Medicine Work Phone: Comment on above: PATIENT NOT FASTINGP ERFORMED BY: [facility]6370 [facility] [id number] Information: W98131 Specific gravity Relative Density (U) 1.017 1 Normal 1.005-1.03 0 [facility] Work Phone: Comment on above: PATIENT NOT FASTINGP ERFORMED BY: [address] [id number] Information: W00986 Urobilinogen Test strip mass conc (U) 0.2 mg/dL Normal 0.0-1.9 Comprehensiv e Internal Medicine Work Phone: Comment on above: PATIENT NOT FASTINGP ERFORMED BY: [address] [id number] Information: E36836 CBC WITH MANUAL DIFF (33023) Ordered By: Chaplain on 12-01-2013 Basophils #/vol (Bld) 0.0 {x10E3/uL} Normal 0.0-0.2 [facility] Work Phone: Comment on above: PATIENT WAS FASTINGP ERFORMED BY: [facility]6370 [facility] [id number] Information: 872764,V85026 Basophils/100 WBC (Bld) 0 % Normal 0-3 [facility] Work Phone: Comment on above: PATIENT WAS FASTINGP ERFORMED BY: [facility]6370 [facility] [id number] Information: 806604,M06755 Eosinophils #/vol (Bld) 0.1 {x10E3/uL} Normal 0.0-0.4 [facility] Work Phone: Comment on above: PATIENT WAS FASTINGP ERFORMED BY: [place] 1064570 [facility] [id number] Information: 505641,B29140 Eosinophils/100 WBC (Bld) 1 % Normal 0-5 [facility] Work Phone: Comment on above: PATIENT WAS FASTINGP ERFORMED BY: [address] [id number] Information: 458103,V06424 Erythrocyte distribution width Ratio (RBC) 13.5 % Normal 12.3-15.4 [facility] Work Phone: Comment on above: PATIENT WAS FASTINGP ERFORMED BY: [address] [id number] Information: 058631,K57625 Hematocrit Volume Fraction (Bld) 40.8 % Normal 34.0-46.6 [facility] Work Phone: Comment on above: PATIENT WAS FASTINGP ERFORMED BY: [address] [id number] Information: 395188,E21612 Hemoglobin mass conc (Bld) 13.2 g/dL Normal 11.1-15.9 [facility] Work Phone: Comment on above: PATIENT WAS FASTINGP ERFORMED BY: [address] [id number] Information: 869007,Z35760 Immature granulocytes #/vol (Bld) 0.0 {x10E3/uL} Normal 0.0-0.1 [facility] Work Phone: Comment on above: PATIENT WAS FASTINGP ERFORMED BY: [address] [id number] Information: 239230,Y88193 Immature granulocytes/100 WBC (Bld) 0 % Normal 0-2 [facility] Work Phone: Comment on above: PATIENT WAS FASTINGP ERFORMED BY: [address] [id number] Information: 873830,V33519 Lymphocytes #/vol (Bld) 1.4 {x10E3/uL} Normal 0.7-3.1 [facility] Work Phone: Comment on above: PATIENT WAS FASTINGP ERFORMED BY: [place] 1064570 [facility] [id number] Information: 655695,T61598 Lymphocytes/100 WBC (Bld) 18 % Normal 14-46 [facility] Work Phone: Comment on above: PATIENT WAS FASTINGP ERFORMED BY: [address] [id number] Information: 186788,Y19375 MCH Entitic mass (RBC) 30.1 pg Normal 26.6-33.0 [facility] Internal Medicine Work Phone: Comment on above: PATIENT WAS FASTINGP ERFORMED BY: [address] [id number] Information: 842206,M77193 MCHC mass conc (RBC) 32.4 g/dL Normal 31.5-35.7 [facility] Internal Medicine Work Phone: Comment on above: PATIENT WAS FASTINGP ERFORMED BY: [address] [id number] Information: 122201,Q35790 MCV Entitic volume (RBC) 93 fL Normal 79-97 [facility] Internal Medicine Work Phone: Comment on above: PATIENT WAS FASTINGP ERFORMED BY: [address] [id number] Information: [id number],T22160 Monocytes #/vol (Bld) 0.6 {x10E3/uL} Normal 0.1-0.9 [facility] Internal Medicine Work Phone: Comment on above: PATIENT WAS FASTINGP ERFORMED BY: [address] [id number] Information: [id number],A44916 Monocytes/100 WBC (Bld) 7 % Normal 4-12 [facility] Work Phone: Comment on above: PATIENT WAS FASTINGP ERFORMED BY: ORTIZ [facility]Centerpoint [facility] Center Mgjjnr7625 [facility] [id number] Information: 391616,L04909 Neutrophils #/vol (Bld) 5.9 {x10E3/uL} Normal 1.4-7.0 [facility] Work Phone: Comment on above: PATIENT WAS FASTINGP ERFORMED BY: [address] [id number] Information: [id number],M17772 Neutrophils/100 WBC (Bld) 74 % Normal 40-74 [facility] Work Phone: Comment on above: PATIENT WAS FASTINGP ERFORMED BY: [address] [id number] Information: [id number],A38719 Platelets #/vol (Bld) 225 {x10E3/uL} Normal 155-379 [facility] Work Phone: Comment on above: PATIENT WAS FASTINGP ERFORMED BY: [address] [id number] Information: [id number],M89028 RBC #/vol (Bld) 4.38 {x10E6/uL} Normal 3.77-5.28 [facility] Internal Medicine Work Phone: Comment on above: PATIENT WAS FASTINGP ERFORMED BY: [place] 1064570 [facility] [id number] Information: 878336,[id number] WBC #/vol (Bld) 8.0 {x10E3/uL} Normal 3.4-10.8 [facility] Internal Medicine Work Phone: Comment on above: PATIENT WAS FASTINGP ERFORMED BY: [facility]6370 [facility] [id number] Information: 058545,D49715 LIPID PANEL (34605)Ordered B y: Chaplain on 12-01-2013 Cholesterol in HDL mass conc 47 mg/dL Normal [facility] Work Phone: Comment on above: According to ATP-III Guidelines, HDL-C >59 mg/dL is considered anegative risk factor for CHD. PATIENT WAS FASTINGP ERFORMED BY: CB [facility] Zhwrhr1651 [address] Mozat Pte LtdDublin [place] [id number] Cholesterol in LDL mass conc 50 mg/dL Normal 0-99 [facility] Work Phone: Comment on above: PATIENT WAS FASTINGP ERFORMED BY: CB [facility] Kmpkxp0013 Rodriguez RoadDublin [place] [id number] Cholesterol in LDL/Cholesterol in HDL mass ratio 1.1 {ratio_units} Normal 0.0-3.2 [facility] Work Phone: Comment on above: PATIENT WAS FASTINGP ERFORMED BY: CB [facility] Txehvd8672 Rodriguez RoadDublin [place] [id number] Cholesterol in VLDL mass conc 35 mg/dL Normal 5-40 [facility] Work Phone: Comment on above: PATIENT WAS FASTINGP ERFORMED BY: CB [facility] Fyypzt3407 [address] Moz[address] Pte LtdDublin [place] [id number] Cholesterol mass conc 132 mg/dL Normal 100-199 Com prehensive Internal Medicine Work Phone: Comment on above: PATIENT WAS FASTINGP ERFORMED BY: CB [facility] Ovzojd9545 [address] Moz[address] Pte LtdDublin [place] [id number] Triglyceride mass conc 177 mg/dL Abnormal 0-149 [facility] Internal [facility] Work Phone: Comment on above: PATIENT WAS FASTINGP ERFORMED BY: CB [facility] Mxwqef6436 Rodriguez RoadDublin [place] [id number] Lab Report: Ordered by Dr. Saritha delgado 12-01-2013 Alanine aminotransferase (ALT) 10 U/L Invalid Interpretation Code [facility] Work Phone: Alkaline phosphatase (ALP) 76 U/L Invalid Interpretation Code [facility] Work Phone: Aspartate aminotransferase (AST) 13 U/L Invalid Interpretation Code [facility] Work Phone: METABOLIC PANEL, COMPREHENSI VE (88393)Ordered By: Chaplain on 12-01-2013 Albumin mass conc 4.5 g/dL Normal 3.5-4.8 Compreh ensive Internal Medicine Work Phone: Comment on above: PATIENT WAS FASTINGP ERFORMED BY: CB [facility] Duvpqr5359 Rodriguez RoadDublin [place] [id number] Albumin/Globulin mass ratio 2.1 {ratio} Normal 1.1-2.5 [facility] Work Phone: Comment on above: PATIENT WAS FASTINGP ERFORMED BY: CB [facility] Johqbg2749 Rodriguez RoadDublin [place] [id number] ALP enzyme act/vol 76 [iU]/L Normal 39-117 Compre [facility] Internal Medicine Work Phone: Comment on above: PATIENT WAS FASTINGP ERFORMED BY: CB [facility] Yipaid8871 [address] RoadDublin [place] [id number] ALT enzyme act/vol 10 [iU]/L Normal 0-32 Compre [facility] Internal Medicine Work Phone: Comment on above: PATIENT WAS FASTINGP ERFORMED BY: CB [facility] Vcjpqu3208 [address] RoadDublin [place] [id number] AST enzyme act/vol 13 [iU]/L Normal 0-40 Compre [facility] Internal Medicine Work Phone: Comment on above: PATIENT WAS FASTINGP ERFORMED BY: CB [facility] Ondiwr2043 [address] RoadDublin [place] [id number] Bilirubin mass conc 0.3 mg/dL Normal 0.0-1.2 Compr [facility] Internal Medicine Work Phone: Comment on above: PATIENT WAS FASTINGP ERFORMED BY: CB [facility] Qsnieu7297 [address] RoadDublin [place] [id number] Calcium mass conc 9.9 mg/dL Normal 8.6-10.2 Compreh ensive Internal Medicine Work Phone: Comment on above: PATIENT WAS FASTINGP ERFORMED BY: CB [facility] Ckunjf1161 [address] RoadDublin [place] [id number] Chloride molar conc 101 mmol/L Normal 97-108 Compr ehensive Internal Medicine Work Phone: Comment on above: PATIENT WAS FASTINGP ERFORMED BY: ORTIZ Ameayaustyn Kebnei2060 [facility] [id number] CO2 molar conc 27 mmol/L Normal 19-28 Comprehens trupti Internal Medicine Work Phone: Comment on above: PATIENT WAS FASTINGP ERFORMED BY: ORTIZ MeenaAleksandr CrowePtyirn5504 [facility] [id number] Creatinine mass conc 0.97 mg/dL Normal 0.57-1.00 Comp rehensive Internal Medicine Work Phone: Comment on above: PATIENT WAS FASTINGP ERFORMED BY: ORTIZ MeenaAleksandr CroweEsmhsp5113 [facility] [id number] GFR/1.73 sq M predicted among blacks CKD-EPI vol rate/area (S/P/Bld) 67 mL/min/1.73 Normal [facility] Work Phone: Comment on above: PATIENT WAS FASTINGP ERFORMED BY: ORTIZ MeenaAleksandr CroweRocmir2541 [facility] [id number] GFR/1.73 sq M predicted among non-blacks CKD-EPI vol rate/area (S/P/Bld) 58 mL/min/1.73 Abnormal Comprehensiv e Internal Medicine Work Phone: Comment on above: PATIENT WAS FASTINGP ERFORMED BY: ORTIZ Crowelin6370 [facility] [id number] Globulin mass conc (S) 2.1 g/dL Normal 1.5-4.5 Co mprehensive Internal Medicine Work Phone: Comment on above: PATIENT WAS FASTINGP ERFORMED BY: ORTIZ MeenaAleksandr Bahkwz6750 [facility] [id number] Glucose mass conc 99 mg/dL Normal 65-99 Compreh ensive Internal Medicine Work Phone: Comment on above: PATIENT WAS FASTINGP ERFORMED BY: ORTIZ MeenaKellie Ksdvwg7950 [facility] [id number] Potassium molar conc 4.9 mmol/L Normal 3.5-5.2 Comp rehensive Internal Medicine Work Phone: Comment on above: PATIENT WAS FASTINGP ERFORMED BY: ORTIZ [facility]6370 [facility] [id number] Protein mass conc 6.6 g/dL Normal 6.0-8.5 Compreh ensive Internal Medicine Work Phone: Comment on above: PATIENT WAS FASTINGP ERFORMED BY: [facility]6370 [facility] [id number] Sodium molar conc 141 mmol/L Normal 134-144 Compreh ensive Internal Medicine Work Phone: Comment on above: PATIENT WAS FASTINGP ERFORMED BY: ORTIZ [facility] Rnyouo0100 [facility] [id number] Urea nitrogen mass conc 21 mg/dL Normal 8-27 [facility] Work Phone: Comment on above: PATIENT WAS FASTINGP ERFORMED BY: ORTIZ [place] 6095670 [facility] [id number] Urea nitrogen/Creatinine mass ratio 22 mg/mg Normal 11-26 [facility] Work Phone: Comment on above: PATIENT WAS FASTINGP ERFORMED BY: ORTIZ [facility] Fgisrn5487 [facility] [id number] TSH (07003)Ordered By: Syste m Inspector Heating And Refrigeration on 12-01-2013 Thyrotropin Qn 1.040 {uIU/mL} Normal 0.450-4.50 0 [facility] Work Phone: Comment on above: PATIENT WAS FASTINGP ERFORMED BY: [facility]6370 [facility] [id number] URINE IBRAHIMA CULTURE (TY COL COUNT) ([id number])Ordered By: Chaplain on 12-01-2013 Bacteria identified Cx Nom (U) Escherichia coli Normal [facility] Work Phone: Comment on above: Greater than 100,000 colony forming units per mL PATIENT NOT FASTINGP ERFORMED BY: ORTIZ [place] 6095670 [facility] [id number] Information: SRC:UR [id number] Bacteria identified Cx Nom (U) Final report Normal [facility] Work Phone: Comment on above: PATIENT NOT FASTINGP ERFORMED BY: comment.comCenterpoint Medical Center Vdqrnr0986 [facility] [id number] Information: SRC:UR Q60751 Other Antibiotic [facility] prehensive Internal Medicine Work Phone: Comment on above: S = Susceptibl e; I = Intermediate; R = Resistant P = Positive; N = Negative MICS are expressed in micrograms per mL Antibiotic RSLT#1 RSLT#2 RSLT#3 RSLT#4Amoxicillin/Clavulanic Acid SAmpicillin SCefepime SCeftriaxone SCefuroxime SCephalothin SCiprofloxacin SErtapenem SGentamicin SImipenem SLevofloxacin SNitrofurantoin SPiperacillin STetracycline STobramycin STrimethoprim/Sulfa S PATIENT NOT FASTINGP ERFORMED BY: [facility] Pprxxj2649 [facility] [id number] Information: SRC:UR [id number] Urinalysis, Office (02009)Or dered By: Jacinta Patel on 12-01-2013 Bilirubin [...] Internal Medicine Work Phone: Vitamin D Hydroxy (14249)Ord ered By: Chaplain on 12-01-2013 25-Hydroxyvitamin D2+25-Hydroxyvitamin D3 mass conc 38.9 ng/mL Normal 30.0-100.0 [facility] Work Phone: Comment on above: Vitamin D deficiency has been defined by the [place] ofMedicine and an Endocrine Society practice guideline as alevel of serum 25-OH vitamin D less than 20 ng/mL (1,2).The Endocrine Society went on to further define vitamin Dinsufficiency as a level between 21 and 29 ng/mL (2).1. IOM ([place] [employer]). 2010. Dietary reference intakes for calcium and D. [place]: The National Academies Press.2. Allie MF, Emile PONCE, Natalie POOLE, et al. Evaluation, treatment, and prevention of vitamin D deficiency: an Endocrine Society clinical practice guideline. JCEM. 2010; 96(7):1911-30. PATIENT WAS FASTINGP ERFORMED BY: LabCoCare [facility] CenterLjzoyw5438 [facility] [id number] Lab Report: PTon 04-19-2013 INR in blood by coagulation 1.0 {INR} Normal [facility] Work Phone: prothrombin time, actual/normal, ratio 12.8 SECONDS Normal 11.9-14.4 [facility] Work Phone: Lab Report: PTTon 04-19-2013 aPTT 29.8 s Normal 24.1-36.2 [facility] Work Phone: Replaced Document: Escobar Aida CG Observationson 04-19-2013 Pulse (Heart Rate) 421 ms Invalid Interpretation Code [facility] Work Phone: URINE IBRAHIMA CULTURE-TY COL C OUNT (79578)Ordered By: Chaplain on 04-18-2013 Bacteria identified Cx Nom (U) Final report Normal [facility] Work Phone: Comment on above: PATIENT NOT FASTINGP ERFORMED BY: [facility] Xoswbp8729 [facility] [id number] Information: SRC:UR [id number] Bacteria identified Cx Nom (U) NG36 Normal [facility] Work Phone: Comment on above: No growth in 36 - 48 hours. PATIENT NOT FASTINGP ERFORMED BY: [facility] Wzrvzh2939 [facility] [id number] Information: SRC:UR K17307 Urinalysis, Office (76542)Or dered By: Jacinta Patel on 04-15-2013 Bilirubin [...] 02-05-20 13 Albumin 4.0 g/dL Normal 3.4-5.0 [facility] Work Phone: Bilirubin (direct) 0.12 mg/dL Normal 0.00-0.30 [facility] Work Phone: Bilirubin (total) 0.40 mg/dL Normal 0.00-1.00 [facility] Work Phone: URINE IBRAHIMA CULTURE (TY COL COUNT) (78894)Ordered By: Chaplain on 09-30-2012 Bacteria identified Cx Nom (U) Escherichia coli Normal [facility] Work Phone: Comment on above: Greater than 100,000 colony forming units per mL PATIENT NOT FASTINGP ERFORMED BY: ORTIZ [employer]70 HealthPlan Data SolutionsCarolinaEast Medical Center [id number] Information: SRC:UR I57554 Bacteria identified Cx Nom (U) Final report Normal [facility] Work Phone: Comment on above: PATIENT NOT FASTINGP ERFORMED BY: Zaldiva70 HealthPlan Data SolutionsCarolinaEast Medical Center [id number] Information: SRC:UR T97897 Other Antibiotic susc [facility] prehensive Internal Medicine Work Phone: Comment on above: S = Susceptibl e; I = Intermediate; R = Resistant P = Positive; N = Negative MICS are expressed in micrograms per mL Antibiotic RSLT#1 RSLT#2 RSLT#3 RSLT#4Amoxicillin/Clavulanic Acid SAmpicillin SCefazolin SCefepime SCeftriaxone SCefuroxime SCephalothin SCiprofloxacin SESBL NErtapenem SGentamicin SImipenem SLevofloxacin SNitrofurantoin SPiperacillin STetracycline STobramycin STrimethoprim/Sulfa S PATIENT NOT FASTINGP ERFORMED BY: [employer] Txjynj4889 [address] Mozat Pte LtdFormerly [facility] [id number] Information: SRC:UR T21507 Urinalysis, Office (71841)Or dered By: Alyson Dixon on 09-30-2012 Bilirubin [...] Albumin/Globulin Ratio 1.1 {ratio} Invalid Interpretation Code [facility] Work Phone: Protein 6.7 g/dL Invalid Interpretation Code [facility] Work Phone: Alkaline Phosphatase (12983) Ordered By: Chaplain on 02-25-2012 ALP enzyme act/vol 67 [iU]/L Normal 25-165 Compre [facility] Work Phone: Comment on above: PATIENT NOT FASTINGP ERFORMED BY: [facility] CenterTrcrpn4219 [facility] [id number] CALCIFIDIOL (54993) VIT D 25 Ordered By: Chaplain on 02-25-2012 25-Hydroxyvitamin D2+25-Hydroxyvitamin D3 mass conc 45.8 ng/mL Normal 30.0-100.0 [facility] Work Phone: Comment on above: Vitamin D deficiency has been defined by the [place] [employer] and an Endocrine Society practice guideline as alevel of serum 25-OH vitamin D less than 20 ng/mL (1,2).The Endocrine Society went on to further define vitamin Dinsufficiency as a level between 21 and 29 ng/mL (2).1. IOM ([place] [employer]). 2010. Dietary reference intakes for calcium and D. [place]: The National Academies Press.2. Allie MF, Emile PONCE, Natalie POOLE, et al. Evaluation, treatment, and prevention of vitamin D deficiency: an Endocrine Society clinical practice guideline. JCEM. 2010; 96(7):1911-30. 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 MCHC 34.6 % Invalid Interpretation Code [facility] Work Phone: CBC (AUTO) (07846)Ordered By : Chaplain on 10-14-2010 Erythrocyte distribution width Ratio (RBC) 13.5 % Normal 11.7-15.0 [facility] Work Phone: Comment on above: PATIENT NOT FASTINGP ERFORMED BY: ORTIZ [facility] Svlskr2708 [address] [facility]bl[facility] [place] [id number] Hematocrit Volume Fraction (Bld) 40.4 % Normal 34.0-44.0 [facility] Work Phone: Comment on above: PATIENT NOT FASTINGP ERFORMED BY: CB [facility] Nyfpxz7303 Rodriguez RoadDublin [place] [id number] Hemoglobin mass conc (Bld) 13.7 g/dL Normal 11.5-15.0 [facility] Work Phone: Comment on above: PATIENT NOT FASTINGP ERFORMED BY: CB [facility] Xfxjjn3416 Rodriguez RoadDublin [place] [id number] MCH Entitic mass (RBC) 29.5 pg Normal 27.0-34.0 Co [facility] Internal Medicine Work Phone: Comment on above: PATIENT NOT FASTINGP ERFORMED BY: CB [facility] Wublvp2906 Rodriguez RoadDublin [place] [id number] MCHC mass conc (RBC) 33.9 g/dL Normal 32.0-36.0 [facility] Work Phone: Comment on above: PATIENT NOT FASTINGP ERFORMED BY: ORTIZ Chester6370 [facility] [id number] MCV Entitic volume (RBC) 87 fL Normal 80-98 [facility] Work Phone: Comment on above: PATIENT NOT FASTINGP ERFORMED BY: ORTIZ Crowelin6370 [facility] [id number] Platelets #/vol (Bld) 280 {x10E3/uL} Normal 140-415 [facility] Work Phone: Comment on above: PATIENT NOT FASTINGP ERFORMED BY: ORTIZ Crowelin6370 [facility] [id number] RBC #/vol (Bld) 4.64 {x10E6/uL} Normal 3.80-5.10 [facility] Work Phone: Comment on above: PATIENT NOT FASTINGP ERFORMED BY: ORTIZ Crowelin6370 [facility] [id number] WBC #/vol (Bld) 6.2 {x10E3/uL} Normal 4.0-10.5 [facility] Internal Medicine Work Phone: Comment on above: PATIENT NOT FASTINGP ERFORMED BY: ORTIZ Crowelin6370 [facility] [id number] METABOLIC PANEL, COMPREHENSI VE (50187)Ordered By: Chaplain on 10-14-2010 Albumin mass conc 4.4 g/dL Normal 3.5-4.8 Compreh [facility] Internal Medicine Work Phone: Comment on above: PATIENT NOT FASTINGP ERFORMED BY: ORTIZ Crowelin6370 [facility] [id number] Information: 065167,[id number] Albumin/Globulin mass ratio 1.8 {ratio} Normal 1.1-2.5 [facility] Work Phone: Comment on above: PATIENT NOT FASTINGP ERFORMED BY: CB [facility] Mpqilx8239 Rodriguez RoadDublin [place] [id number] Information: [id number] ALP enzyme act/vol 84 [iU]/L Normal 25-165 [facility] Work Phone: Comment on above: PATIENT NOT FASTINGP ERFORMED BY: CB [facility] Ngtgtn2460 [address] RoadDublin [place] [id number] Information: 655330,R67502 ALT enzyme act/vol 13 [iU]/L Normal 0-40 [facility] Internal Medicine Work Phone: Comment on above: PATIENT NOT FASTINGP ERFORMED BY: CB [facility] Oamhbt4056 Rodriguez RoadDublin [place] [id number] Information: 663604,C76367 AST enzyme act/vol 13 [iU]/L Normal 0-40 [facility] Internal Medicine Work Phone: Comment on above: PATIENT NOT FASTINGP ERFORMED BY: CB [facility] Hjcljd6819 Rodriguez RoadDublin [place] [id number] Information: 495809,Z44745 Bilirubin mass conc 0.2 mg/dL Normal 0.0-1.2 Compr [facility] Internal Medicine Work Phone: Comment on above: PATIENT NOT FASTINGP ERFORMED BY: CB [facility] Yktkaz7724 [address] RoadDublin [place] [id number] Information: 483469,O05004 Calcium mass conc 10.4 mg/dL Abnormal 8.6-10.2 Compreh [facility] hospitalive Internal Medicine Work Phone: Comment on above: PATIENT NOT FASTINGP ERFORMED BY: CB [facility] Cjirxo9091 Rodriguez RoadDublin [place] [id number] Information: 718601,D51474 Chloride molar conc 101 mmol/L Normal 97-108 Compr [facility] Internal Medicine Work Phone: Comment on above: PATIENT NOT FASTINGP ERFORMED BY: CB [facility] Jorwoo9724 [address] RoadDublin [place] [id number] Information: 465656,C16436 CO2 molar conc 28 mmol/L Normal 20-32 Comprehens trupti Internal Medicine Work Phone: Comment on above: PATIENT NOT FASTINGP ERFORMED BY: ORTIZ Hou Qakwnj9511 [facility] [id number] Information: 053063,H09013 Creatinine mass conc 0.70 mg/dL Normal 0.57-1.00 Comp rehensive Internal Medicine Work Phone: Comment on above: PATIENT NOT FASTINGP ERFORMED BY: [address] [id number] Information: 829260,O75866 GFR/1.73 sq M predicted among blacks MDRD [...] [email or web address]. PATIENT NOT FASTINGP ERFORMED BY: ORTIZ [facility]oCenter[facility] Center Drphpa8365 [facility] [id number] Information: 635604,R60393 GFR/1.73 sq M.predicted MDRD (S/P/Bld) [Vol rate/Area] mL/min/{1.73_m2} Normal [facility] Work Phone: Comment on above: PATIENT NOT FASTINGP ERFORMED BY: LabK[facility] Institute6370 [facility] [id number] Information: 754686,J33609 GFR/1.73 sq M.predicted MDRD vol rate/area mL/min/{1.73_m2} Normal [facility] Work Phone: Comment on above: PATIENT NOT FASTINGP ERFORMED BY: CB LabDavid Ville 7462870 [facility] [id number] Information: 718387,J38037 Globulin mass conc (S) 2.5 g/dL Normal 1.5-4.5 [facility] louisensive Internal Medicine Work Phone: Comment on above: PATIENT NOT FASTINGP ERFORMED BY: ORTIZ [facility]Co[facility] CenterWuqwgn8370 [facility] [id number] Information: 970704,U72130 Glucose mass conc 88 mg/dL Normal 65-99 Compreh ensive Internal Medicine Work Phone: Comment on above: PATIENT NOT FASTINGP ERFORMED BY: ORTIZ [facility]Co[facility] CenterTasfqx4163 [facility] [id number] Information: 120098,C46446 Potassium molar conc 4.6 mmol/L Normal 3.5-5.2 Comp rehensive Internal Medicine Work Phone: Comment on above: PATIENT NOT FASTINGP ERFORMED BY: ORTIZ RobledoKresge Eye Institute6370 [facility] [id number] Information: 848587,Y50521 Protein mass conc 6.9 g/dL Normal 6.0-8.5 Compreh ensive Internal Medicine Work Phone: Comment on above: PATIENT NOT FASTINGP ERFORMED BY: ORTIZ [facility]Co[facility] CenterIsseoo7797 [facility] [id number] Information: 979276,L01100 Sodium molar conc 140 mmol/L Normal 135-145 Compreh ensive Internal Medicine Work Phone: Comment on above: PATIENT NOT FASTINGP ERFORMED BY: ORTIZ [facility] Gdspul6607 [facility] [id number] Information: 368882,U20484 Urea nitrogen mass conc 9 mg/dL Normal 8-27 [facility] Work Phone: Comment on above: PATIENT NOT FASTINGP ERFORMED BY: ORTIZ [facility] Cwervn9112 [facility] [id number] Information: 673663,[id number] Urea nitrogen/Creatinine mass ratio 13 mg/mg Normal 11- [facility] Work Phone: Comment on above: PATIENT NOT FASTINGP ERFORMED BY: ORTIZ Ameyaaustyn CroweDdqlzm3750 Rodriguez RoadDublin [place] [id number] Information: 922330,F09875 TSH (55861)Ordered By: Syste m Inspector [employer]ating [employer]rig[employer] on 10-14-2010 Thyrotropin Qn 1.320 {uIU/mL} Normal 0.450-4.50 0 [facility] Work Phone: Comment on above: PATIENT NOT FASTINGP ERFORMED BY: ORTIZ LabCoaustyn CroweIcffwc2047 Rodriguez RoadDublin [place] [id number] URINALYSIS W/O MICRO (45769) Ordered By: Chaplain on 10-14-2010 Appearance Nom (U) Clear Normal Compre hensive Internal Medicine Work Phone: Comment on above: PATIENT NOT FASTINGP ERFORMED BY: ORTIZ LabAleksandr CroweDxvzhv8673 [address] RoadDublin [place] [id number] Bilirubin Ql (U) Negative Normal Comprehe nsive Internal Medicine Work Phone: Comment on above: PATIENT NOT FASTINGP ERFORMED BY: ORTIZ LabAleksandr CroweSwulbv3900 [address] RoadDublin [place] [id number] Color Nom (U) Yellow Normal Comprehensi ve Internal Medicine Work Phone: Comment on above: PATIENT NOT FASTINGP ERFORMED BY: ORTIZ [facility] Xnpdji5952 [address] RoadDublin [place] [id number] Glucose Ql (U) Negative Normal Comprehens trupti Internal Medicine Work Phone: Comment on above: PATIENT NOT FASTINGP ERFORMED BY: ORTIZ [facility] Mwvdif0883 [address] RoadDublin [place] [id number] Hemoglobin Ql (U) Negative Normal Compreh ensive Internal Medicine Work Phone: Comment on above: PATIENT NOT FASTINGP ERFORMED BY: ORTIZ LabKellierp Gnqkdu3837 [address] RoadDublin [place] [id number] Ketones Ql (U) Negative Normal Comprehens trupti Internal Medicine Work Phone: Comment on above: PATIENT NOT FASTINGP ERFORMED BY: ORTIZ [facility] Nnkhte8186 [address] RoadDublin [place] [id number] Leukocyte esterase Test strip Ql (U) Negative Normal [facility] Work Phone: Comment on above: PATIENT NOT FASTINGP ERFORMED BY: ORTIZ [facility] Tpaovs6649 [address] RoadDublin [place] [id number] Microscopic observation LM Nom (Urine sed) MICRON Normal [facility] Work Phone: Comment on above: Microscopic follows if indicated. PATIENT NOT FASTINGP ERFORMED BY: ORTIZ [facility] Kujewb5052 [address] RoadDublin [place] [id number] Nitrite Ql (U) Negative Normal Comprehens trupti Internal Medicine Work Phone: Comment on above: PATIENT NOT FASTINGP ERFORMED BY: ORTIZ [facility] Nthjvu1389 [address] RoadDublin [place] [id number] pH (U) 6.5 [pH] Normal 5.0-7.5 [facility] Work Phone: Comment on above: PATIENT NOT FASTINGP ERFORMED BY: ORTIZ [facility] Qfeyyj0377 [address] RoadDublin [place] [id number] Protein Ql (U) Negative Normal Comprehens trupti Internal Medicine Work Phone: Comment on above: PATIENT NOT FASTINGP ERFORMED BY: ORTIZ [facility] Zbxfsy6027 [address] RoadDublin [place] [id number] Specific gravity Relative Density (U) 1.020 1 Normal 1.005-1.03 0 [facility] Work Phone: Comment on above: PATIENT NOT FASTINGP ERFORMED BY: CB [facility] Ycxyep7937 [address] RoadDublin [place] [id number] Urobilinogen Test strip mass conc (U) 0.2 mg/dL Normal 0.0-1.9 Comprehensiv e Internal Medicine Work Phone: Comment on above: PATIENT NOT FASTINGP ERFORMED BY: CB [facility] Arkwrg9046 [address] RoadDublin [place] [id number] VITAMIN B-12 (CYANOCOBALAMIN ) (92143)Ordered By: Chaplain on 10-14-2010 Cobalamin (Vitamin B12) mass conc 246 pg/mL Normal 211-946 [facility] Work Phone: Comment on above: PATIENT NOT FASTINGP ERFORMED BY: ORTIZ Crowelin6370 [facility] [id number] LIPID PANEL (55155)Ordered B y: Chaplain on 12-14-2009 Cholesterol in HDL mass conc 54 mg/dL Normal [facility] Work Phone: Comment on above: According to ATP-III Guidelines, HDL-C >59 mg/dL is considered anegative risk factor for CHD. PATIENT WAS FASTINGP ERFORMED BY: ORTIZ [facility] Iwbzov6930 [facility] [id number] Information: 803068,U43363 Cholesterol in LDL mass conc 111 mg/dL Abnormal 0-99 [facility] Work Phone: Comment on above: PATIENT WAS FASTINGP ERFORMED BY: [facility] Crvwal4398 [facility] [id number] Information: 244138,B59135 Cholesterol in LDL/Cholesterol in HDL mass ratio 2.1 {ratio_units} Normal 0.0-3.2 [facility] Work Phone: Comment on above: PATIENT WAS FASTINGP ERFORMED BY: ORTIZ [facility] Znszji2022 [facility] [id number] Information: 866521,Z20448 Cholesterol in VLDL mass conc 21 mg/dL Normal 5-40 [facility] Work Phone: Comment on above: PATIENT WAS FASTINGP ERFORMED BY: [facility] Rffbpy6481 [facility] [id number] Information: 713003,M08680 Cholesterol mass conc 186 mg/dL Normal 100-199 [facility] prehensive Internal Medicine Work Phone: Comment on above: PATIENT WAS FASTINGP ERFORMED BY: [facility] Wckknw9843 [facility] [id number] Information: 044005,Y69098 Triglyceride mass conc 103 mg/dL Normal 0-149 [facility]ensive [facility] Work Phone: Comment on above: PATIENT WAS FASTINGP ERFORMED BY: ORTIZ [facility]Co[facility] CenterKgyhsm0309 [facility] [id number] Information: 129965,V68824 TSH (15133)Ordered By: [employer]e m Inspector [employer]ating [employer] on 12-14-2009 Thyrotropin Qn 1.680 {uIU/mL} Normal 0.450-4.50 0 [facility] Work Phone: Comment on above: PATIENT WAS FASTINGP ERFORMED BY: LabCoMichael Ville 5047370 [facility] [id number] CBC WITH MANUAL DIFF (59449) Ordered By: Chaplain on 12-13-2009 Basophils #/vol (Bld) 0.0 {x10E3/uL} Normal 0.0-0.2 [facility] Work Phone: Comment on above: PATIENT NOT FASTINGP ERFORMED BY: LabKres[facility] Institute6370 [facility] [id number] Information: 236136,W65034 Basophils/100 WBC (Bld) 0 % Normal 0-3 [facility] Work Phone: Comment on above: PATIENT NOT FASTINGP ERFORMED BY: LabCo[facility] CenterQoacjn6260 [facility] [id number] Information: 639654,P33138 Eosinophils #/vol (Bld) 0.0 {x10E3/uL} Normal 0.0-0.4 [facility] Work Phone: Comment on above: PATIENT NOT FASTINGP ERFORMED BY: [facility] Hgzuac5491 [facility] [id number] Information: 294792,D09976 Eosinophils/100 WBC (Bld) 0 % Normal 0-7 [facility] Work Phone: Comment on above: PATIENT NOT FASTINGP ERFORMED BY: LabCoMichael Ville 5047370 [facility] [id number] Information: 188327,D34000 Erythrocyte distribution width Ratio (RBC) 13.9 % Normal 11.7-15.0 [facility] Internal Medicine Work Phone: Comment on above: PATIENT NOT FASTINGP ERFORMED BY: ORTIZ Crowelin6370 [facility] [id number] Information: 159403,X62749 Hematocrit Volume Fraction (Bld) 38.9 % Normal 34.0-44.0 [facility] Internal Medicine Work Phone: Comment on above: PATIENT NOT FASTINGP ERFORMED BY: [place] 1064570 [facility] [id number] Information: 234096,S90908 Hemoglobin mass conc (Bld) 13.7 g/dL Normal 11.5-15.0 [facility] Internal Medicine Work Phone: Comment on above: PATIENT NOT FASTINGP ERFORMED BY: [address] [id number] Information: 288360,G55796 Lymphocytes #/vol (Bld) 1.3 {x10E3/uL} Normal 0.7-4.5 [facility] Internal Medicine Work Phone: Comment on above: PATIENT NOT FASTINGP ERFORMED BY: ORTIZ RobledoDavid Ville 7462870 [facility] [id number] Information: 068686,[id number] Lymphocytes/100 WBC (Bld) 20 % Normal 14-46 [facility] Work Phone: Comment on above: PATIENT NOT FASTINGP ERFORMED BY: LabCoMichael Ville 5047370 [facility] [id number] Information: 960878,L39583 MCH Entitic mass (RBC) 31.3 pg Normal 27.0-34.0 [facility] Internal Medicine Work Phone: Comment on above: PATIENT NOT FASTINGP ERFORMED BY: [place] 1064570 [facility] [id number] Information: 935709,Z58039 MCHC mass conc (RBC) 35.2 g/dL Normal 32.0-36.0 [facility] Internal Medicine Work Phone: Comment on above: PATIENT NOT FASTINGP ERFORMED BY: ORTIZ Crowelin6370 [facility] [id number] Information: 393649,Y43093 MCV Entitic volume (RBC) 89 fL Normal 80-98 [facility] Work Phone: Comment on above: PATIENT NOT FASTINGP ERFORMED BY: ORTIZ [address] [id number] Information: 505339,Y16047 Monocytes #/vol (Bld) 0.4 {x10E3/uL} Normal 0.1-1.0 [facility] Work Phone: Comment on above: PATIENT NOT FASTINGP ERFORMED BY: [address] [id number] Information: 810147,P33539 Monocytes/100 WBC (Bld) 6 % Normal 4-13 [facility] Work Phone: Comment on above: PATIENT NOT FASTINGP ERFORMED BY: ORTIZ H[address] [id number] Information: 891772,[id number] Neutrophils #/vol (Bld) 5.0 {x10E3/uL} Normal 1.8-7.8 [facility] Work Phone: Comment on above: PATIENT NOT FASTINGP ERFORMED BY: [address] [id number] Information: 572386,T14638 Neutrophils/100 WBC (Bld) 74 % Normal 40-74 [facility] Work Phone: Comment on above: PATIENT NOT FASTINGP ERFORMED BY: [place] 1064570 [facility] [id number] Information: 549680,[id number] Platelets #/vol (Bld) 228 {x10E3/uL} Normal 140-415 [facility] Work Phone: Comment on above: PATIENT NOT FASTINGP ERFORMED BY: ORTIZ LabCoaustyn ChesterSywkhx8347 [address] [facility] [id number] Information: [id number],[id number] RBC #/vol (Bld) 4.38 {x10E6/uL} Normal 3.80-5.10 Comp [facility]ensive Internal Medicine Work Phone: Comment on above: PATIENT NOT FASTINGP ERFORMED BY: ORTIZ [facility] Jowenk4558 [facility] [id number] Information: 545649,Q70426 WBC #/vol (Bld) 6.7 {x10E3/uL} Normal 4.0-10.5 [facility] Internal Medicine Work Phone: Comment on above: PATIENT NOT FASTINGP ERFORMED BY: ORTIZ LabKellie Vbrhwt7778 [facility] [id number] Information: 306508,[id number] METABOLIC PANEL, COMPREHENSI VE (80843)Ordered By: Chaplain on 12-13-2009 Albumin mass conc 4.1 g/dL Normal 3.5-4.8 Compreh [facility] Internal Medicine Work Phone: Comment on above: PATIENT NOT FASTINGP ERFORMED BY: ORTIZ Crowelin6370 [facility] [id number] Albumin/Globulin mass ratio 1.7 {ratio} Normal 1.1-2.5 [facility] Internal Medicine Work Phone: Comment on above: PATIENT NOT FASTINGP ERFORMED BY: ORTIZ [facility] Erfskq1266 [facility] [id number] ALP enzyme act/vol 82 [iU]/L Normal 25-165 Compre [facility] Internal Medicine Work Phone: Comment on above: PATIENT NOT FASTINGP ERFORMED BY: ORTIZ [facility] Kxggsm3406 [address] [facility] [id number] ALT enzyme act/vol 12 [iU]/L Normal 0-40 Compre [facility] Internal Medicine Work Phone: Comment on above: PATIENT NOT FASTINGP ERFORMED BY: ORTIZ [facility] Zjumoq1416 [address] RoadDublin [place] [id number] AST enzyme act/vol 19 [iU]/L Normal 0-40 Compre [facility] centerive Internal [facility] Work Phone: Comment on above: PATIENT NOT FASTINGP ERFORMED BY: ORTIZ [facility] Wpnjwi4381 [address] RoadDublin [place] [id number] Bilirubin mass conc 0.2 mg/dL Normal 0.1-1.2 Compr ensive Internal Medicine Work Phone: Comment on above: PATIENT NOT FASTINGP ERFORMED BY: ORTIZ [facility] [id number] [address] RoadDublin [place] [id number] Calcium mass conc 9.6 mg/dL Normal 8.6-10.2 Compreh [facility] Work Phone: Comment on above: PATIENT NOT FASTINGP ERFORMED BY: ORTIZ [facility] [id number] [address] RoadUnc Health [facility] [place]in [place] [id number] Chloride molar conc 104 mmol/L Normal 97-108 Compr ensive Internal Medicine Work Phone: Comment on above: PATIENT NOT FASTINGP ERFORMED BY: ORTIZ [facility] [id number] Rodriguez RoadDublin [place] [id number] CO2 molar conc 25 mmol/L Normal 20-32 Comprehens trupti Internal Medicine Work Phone: Comment on above: PATIENT NOT FASTINGP ERFORMED BY: ORTIZ [facility] [id number] [address] RoadUnc Health [facility] [place]in [place] [id number] Creatinine mass conc 0.71 mg/dL Normal 0.57-1.00 Comp [facility] Work Phone: Comment on above: PATIENT NOT FASTINGP ERFORMED BY: ORTIZ [facility] [id number] Rodriguez RoadDublin [place] [id number] GFR/1.73 sq M predicted among blacks MDRD [...] PATIENT NOT FASTINGP ERFORMED BY: ORTIZ [facility] [id number] [facility] [id number] GFR/1.73 sq M.predicted MDRD (S/P/Bld) [Vol rate/Area] mL/min/{1.73_m2} Normal [facility] Work Phone: Comment on above: PATIENT NOT FASTINGP ERFORMED BY: [facility]6370 [facility] [id number] GFR/1.73 sq M.predicted MDRD vol rate/area mL/min/{1.73_m2} Normal [facility] Work Phone: Comment on above: PATIENT NOT FASTINGP ERFORMED BY: [facility]6370 [facility] [id number] Globulin mass conc (S) 2.4 g/dL Normal 1.5-4.5 Co mprehensive Internal Medicine Work Phone: Comment on above: PATIENT NOT FASTINGP ERFORMED BY: ORTIZ [facility]6370 [facility] [id number] Glucose mass conc 89 mg/dL Normal 65-99 Compreh ensive Internal Medicine Work Phone: Comment on above: PATIENT NOT FASTINGP ERFORMED BY: [facility] [id number] [facility] [id number] Potassium molar conc 5.0 mmol/L Normal 3.5-5.2 Comp rehensive Internal Medicine Work Phone: Comment on above: PATIENT NOT FASTINGP ERFORMED BY: [facility] [id number] [facility] [id number] Protein mass conc 6.5 g/dL Normal 6.0-8.5 Compreh ensive Internal Medicine Work Phone: Comment on above: PATIENT NOT FASTINGP ERFORMED BY: [facility] [id number] [facility] [id number] Sodium molar conc 142 mmol/L Normal 135-145 Compreh ensive Internal Medicine Work Phone: Comment on above: PATIENT NOT FASTINGP ERFORMED BY: [facility] [id number] [facility] [id number] Urea nitrogen mass conc 10 mg/dL Normal 5- [facility] Work Phone: Comment on above: PATIENT NOT FASTINGP ERFORMED BY: [facility] [id number] [facility] [id number] Urea nitrogen/Creatinine mass ratio 14 mg/mg Normal 8- [facility] Work Phone: Comment on above: PATIENT NOT FASTINGP ERFORMED BY: [facility] [id number] [facility] [id number] Urinalysis, Office ([id number])Or dered By: Radha Velez on 09-21-2008 Bilirubin [...] Bacteria identified Cx Nom (U) Escherichia coli [facility] Work Phone: Vital Signs Date Time Vital Sign Value Performing Clinician Facility 06-28-2025 23:29-0400 Body temperature 98 [degF] Dr. Yesika Faust MD Work Phone: [facility] 06-28-2025 23:29-0400 Diastolic blood pressure 89 mm[Hg] Dr. Yesika Faust MD Work Phone: [facility] 06-28-2025 23:29-0400 Heart rate 65 /min Dr. Yesika Faust MD Work Phone: [facility] 06-28-2025 23:29-0400 Respiratory rate 18 /min Dr. Yesika Faust MD Work Phone: [facility] 06-28-2025 23:29-0400 SaO2% (BldA) [Mass fraction] 94 % Dr. Yesika Faust MD Work Phone: [facility] 06-28-2025 23:29-0400 Systolic blood pressure 129 mm[Hg] Dr. Yesika Faust MD Work Phone: [facility] 06-28-2025 19:24-0400 Body height 157.[address] Yesika Faust MD Work Phone: [facility] 03-02-2025 18:29-0400 Body height 157.[address] Yesika Faust MD Work Phone: [facility] 05-05-2019 10:14-0400 BMI (Body Mass Index) 33.02 kg/m2 Mirella Mccracken [facility] Internal Medicine Work Phone: 05-05-2019 10:14-0400 Body weight 74.16 kg Mirella Mccracken [facility] Internal Medicine Work Phone: 05-05-2019 10:14-0400 BP Diastolic 80 mm[Hg] Mirella Mccracken [facility] Internal Medicine Work Phone: Comment on above: Patient Position: Sitting; Cuff Location : Left Arm; Cuff Size: Large 05-05-2019 10:14-0400 BP Systolic 138 mm[Hg] Mirella Mccracken [facility] Internal Medicine Work Phone: Comment on above: Patient Position: Sitting; Cuff Location : Left Arm; Cuff Size: Large 05-05-2019 10:14-0400 BSA (Body Surface Area) 1.69 m2 Mirella Mccracken [facility] Internal Medicine Work Phone: 05-05-2019 10:14-0400 Height 149.86 cm Mirella Mccracken [facility] Internal Medicine Work Phone: 05-05-2019 10:14-0400 Pulse (Heart Rate) 68 /min Mirella Mccracken [facility] Internal Medicine Work Phone: Comment on above: Pattern: Regular 05-05-2019 10:14-0400 Pulse Oximetry 95 % Mirella Mccracken [facility] Internal Medicine Work Phone: Comment on above: Room air 05-05-2019 10:14-0400 Respiratory Rate 18 /min Mirella Mccracken [facility] Internal Medicine Work Phone: Comment on above: Pattern: Unlabored 03-15-2019 09:59-0400 BMI (Body Mass Index) 33.4 kg/m2 Mirella Mccracken [facility] Internal Medicine Work Phone: 03-15-2019 09:59-0400 Body weight 75.01 kg Mirella Mccracken [facility] Internal Medicine Work Phone: 03-15-2019 09:59-0400 BP Diastolic 82 mm[Hg] Mirella Mccracken [facility] Internal Medicine Work Phone: Comment on above: Patient Position: Sitting; Cuff Location : Left Arm; Cuff Size: Large 03-15-2019 09:59-0400 BP Systolic 168 mm[Hg] Mirella Mccracken [facility] Internal Medicine Work Phone: Comment on above: Patient Position: Sitting; Cuff Location : Left Arm; Cuff Size: Large 03-15-2019 09:59-0400 BSA (Body Surface Area) 1.7 m2 Mirella Mccracken [facility] Internal Medicine Work Phone: 03-15-2019 09:59-0400 Height 149.86 cm Mirella Mccracken [facility] Internal Medicine Work Phone: 03-15-2019 09:59-0400 Pulse (Heart Rate) 88 /min Mirella Mccracken [facility] Internal Medicine Work Phone: Comment on above: Pattern: Regular 03-15-2019 09:59-0400 Pulse Oximetry 98 % Mirella Mccracken [facility] Internal Medicine Work Phone: Comment on above: Room air 03-15-2019 09:59-0400 Respiratory Rate 18 /min Mirella Mccracken [facility] Internal Medicine Work Phone: Comment on above: Pattern: Unlabored 01-21-2018 08:25-0400 BMI (Body Mass Index) 29.34 kg/m2 Mirella Mccracken [facility] Internal Medicine Work Phone: 01-21-2018 08:25-0400 Body weight 65.89 kg Mirella Mccracken [facility] Internal Medicine Work Phone: 01-21-2018 08:25-0400 BP Diastolic 84 mm[Hg] [facility] Internal [facility] Work Phone: Comment on above: Patient Position: Sitting; Cuff Location : Left Arm; Cuff Size: Large 01-21-2018 08:25-0400 BP Systolic 128 mm[Hg] Mirella Mccracken [facility] Internal Medicine Work Phone: Comment on above: Patient Position: Sitting; Cuff Location : Left Arm; Cuff Size: Large 01-21-2018 08:25-0400 BSA (Body Surface Area) 1.61 m2 Mirella Mccracken [facility] Internal Medicine Work Phone: 01-21-2018 08:25-0400 Height 149.86 cm [facility] Internal [facility] Work Phone: 01-21-2018 08:25-0400 Pulse (Heart Rate) 84 /min Mirella Mccracken [facility] Internal Medicine Work Phone: Comment on above: Pattern: Regular 01-21-2018 08:25-0400 Pulse Oximetry 98 % Mirella Mccracken [facility] Internal Medicine Work Phone: Comment on above: Room air 01-21-2018 08:25-0400 Respiratory Rate 18 /min Mirella Mccracken [facility] Internal Medicine Work Phone: Comment on above: Pattern: Unlabored 01-21-2018 08:25-0400 Weight 65.89 kg Mirella Mccracken [facility] Internal Medicine Work Phone: 11-09-2017 14:35-0500 BMI (Body Mass Index) 28.91 kg/m2 Mirella Mccracken [facility] Internal Medicine Work Phone: 11-09-2017 14:35-0500 Body weight 64.92 kg Mirella Mccracken [facility] Internal Medicine Work Phone: 11-09-2017 14:35-0500 BP Diastolic 90 mm[Hg] Mirella Mccracken [facility] Internal Medicine Work Phone: Comment on above: Patient Position: Sitting; Cuff Location : Left Arm; Cuff Size: Large 11-09-2017 14:35-0500 BP Systolic 148 mm[Hg] Mirella Mccracken [facility] Internal Medicine Work Phone: Comment on above: Patient Position: Sitting; Cuff Location : Left Arm; Cuff Size: Large 11-09-2017 14:35-0500 BSA (Body Surface Area) 1.6 m2 Mirella Mccracken [facility] Internal Medicine Work Phone: 11-09-2017 14:35-0500 Height 149.86 cm Mirella Mccracken [facility] Internal Medicine Work Phone: 11-09-2017 14:35-0500 Pulse (Heart Rate) 67 /min Mirella Mccracken [facility] Internal Medicine Work Phone: Comment on above: Pattern: Regular 11-09-2017 14:35-0500 Pulse Oximetry 98 % Mirella Mccracken [facility] Internal Medicine Work Phone: Comment on above: Room air 11-09-2017 14:35-0500 Respiratory Rate 18 /min Mirella Mccracken [facility] Internal Medicine Work Phone: Comment on above: Pattern: Unlabored 11-09-2017 14:35-0500 Weight 64.92 kg Mirella Mccracken [facility] Internal Medicine Work Phone: 10-15-2017 09:58-0500 BMI (Body Mass Index) 28.91 kg/m2 Mirella Mccracken [facility] Internal Medicine Work Phone: 10-15-2017 09:58-0500 Body weight 64.92 kg Mirella Mccracken [facility] Internal Medicine Work Phone: 10-15-2017 09:58-0500 BP Diastolic 78 mm[Hg] Mirella Mccracken [facility] Internal Medicine Work Phone: Comment on above: Patient Position: Sitting; Cuff Location : Left Arm; Cuff Size: Large 10-15-2017 09:58-0500 BP Systolic 146 mm[Hg] Mirella Mccracken [facility] Internal Medicine Work Phone: Comment on above: Patient Position: Sitting; Cuff Location : Left Arm; Cuff Size: Large 10-15-2017 09:58-0500 BSA (Body Surface Area) 1.6 m2 Mirella Mccracken [facility] Internal Medicine Work Phone: 10-15-2017 09:58-0500 Height 149.86 cm Mirella Mccracken [facility] Internal Medicine Work Phone: 10-15-2017 09:58-0500 Pulse (Heart Rate) 74 /min Mirella Mccracken [facility] Internal Medicine Work Phone: Comment on above: Pattern: Regular 10-15-2017 09:58-0500 Pulse Oximetry 99 % Mirella Mccracken [facility] Internal Medicine Work Phone: Comment on above: Room air 10-15-2017 09:58-0500 Respiratory Rate 18 /min Mirella Mccracken [facility] Internal Medicine Work Phone: Comment on above: Pattern: Unlabored 10-15-2017 09:58-0500 Weight 64.92 kg Mirella Mccracken [facility] Internal Medicine Work Phone: 09-18-2017 09:08-0500 BMI (Body Mass Index) 28.91 kg/m2 Mirella Mccracken [facility] Internal Medicine Work Phone: 09-18-2017 09:08-0500 Body weight 64.92 kg Mirella Mccracken [facility] Internal Medicine Work Phone: 09-18-2017 09:08-0500 BP Diastolic 82 mm[Hg] Mirella Mccracken [facility] Internal Medicine Work Phone: Comment on above: Patient Position: Sitting; Cuff Location : Left Arm; Cuff Size: Large 09-18-2017 09:08-0500 BP Systolic 128 mm[Hg] Mirella Mccracken [facility] Internal Medicine Work Phone: Comment on above: Patient Position: Sitting; Cuff Location : Left Arm; Cuff Size: Large 09-18-2017 09:08-0500 BSA (Body Surface Area) 1.6 m2 Mirella Mccracken [facility] Internal Medicine Work Phone: 09-18-2017 09:08-0500 Height 149.86 cm Mirella Mccracken [facility] Internal Medicine Work Phone: 09-18-2017 09:08-0500 Pulse (Heart Rate) 72 /min Mirella Mccracken [facility] Internal Medicine Work Phone: Comment on above: Pattern: Regular 09-18-2017 09:08-0500 Pulse Oximetry 98 % Mirella Mccracken [facility] Internal Medicine Work Phone: Comment on above: Room air 09-18-2017 09:08-0500 Respiratory Rate 18 /min Mirella Mccracken [facility] Internal Medicine Work Phone: Comment on above: Pattern: Unlabored 09-18-2017 09:08-0500 Weight 64.92 kg Mirella Mccracken [facility] Internal Medicine Work Phone: 06-05-2017 11:24-0400 BMI (Body Mass Index) 29.67 kg/m2 [employer] Work Phone: 06-05-2017 11:24-0400 BP [...] (Body Mass Index) 29.29 kg/m2 Mirella Mccracken [facility] Internal Medicine Work Phone: 05-07-2017 11:04-0400 Body weight 65.77 kg Mirella Mccracken [facility] Internal Medicine Work Phone: 05-07-2017 11:04-0400 BP Diastolic 82 mm[Hg] [facility] Internal Medicine Work Phone: Comment on above: Patient Position: Sitting; Cuff Location : Left Arm; Cuff Size: Standard 05-07-2017 11:04-0400 BP Systolic 128 mm[Hg] Mirella Mccracken [facility] Internal Medicine Work Phone: Comment on above: Patient Position: Sitting; Cuff Location : Left Arm; Cuff Size: Standard 05-07-2017 11:04-0400 BSA (Body Surface Area) 1.61 m2 Mirella Mccracken [facility] Internal Medicine Work Phone: 05-07-2017 11:04-0400 Height 149.86 cm [facility] Internal [facility] Work Phone: 05-07-2017 11:04-0400 Pulse (Heart Rate) 65 /min Mirella Mccracken [facility] Internal Medicine Work Phone: Comment on above: Pattern: Regular 05-07-2017 11:04-0400 Pulse Oximetry 98 % Mirella Mccracken [facility] Internal Medicine Work Phone: Comment on above: Room air 05-07-2017 11:04-0400 Respiratory Rate 18 /min Mirella Mccracken [facility] Internal Medicine Work Phone: Comment on above: Pattern: Unlabored 05-07-2017 11:04-0400 Weight 65.77 kg Mirella Mccracken [facility] Internal Medicine Work Phone: 03-26-2017 08:06-0400 BMI (Body Mass Index) 29.29 kg/m2 Mirella Mccracken [facility] Internal Medicine Work Phone: 03-26-2017 08:06-0400 Body Temperature 97.5 [degF] Mirella Mccracken [facility] Internal Medicine Work Phone: Comment on above: Method: Temporal 03-26-2017 08:06-0400 Body weight 65.77 kg Mirella Mccracken [facility] Internal Medicine Work Phone: 03-26-2017 08:06-0400 BP Diastolic 84 mm[Hg] Mirella Mccracken [facility] Internal Medicine Work Phone: Comment on above: Patient Position: Sitting; Cuff Location : Left Arm; Cuff Size: Large 03-26-2017 08:06-0400 BP Systolic 126 mm[Hg] Mirella Mccracken [facility] Internal Medicine Work Phone: Comment on above: Patient Position: Sitting; Cuff Location : Left Arm; Cuff Size: Large 03-26-2017 08:06-0400 BSA (Body Surface Area) 1.61 m2 Mirella Mccracken [facility] Internal Medicine Work Phone: 03-26-2017 08:06-0400 Height 149.86 cm Mirella Mccracken [facility] Internal Medicine Work Phone: 03-26-2017 08:06-0400 Pulse (Heart Rate) 82 /min Mirella Mccracken [facility] Internal Medicine Work Phone: Comment on above: Pattern: Regular 03-26-2017 08:06-0400 Pulse Oximetry 98 % Mirella Mccracken [facility] Internal Medicine Work Phone: Comment on above: Room air 03-26-2017 08:06-0400 Respiratory Rate 16 /min Mirella Mccracken [facility] Internal Medicine Work Phone: Comment on above: Pattern: Unlabored 03-26-2017 08:06-0400 Weight 65.77 kg Mirella Mccracken [facility] Internal Medicine Work Phone: 12-25-2016 10:08-0400 BMI (Body Mass Index) 29.51 kg/m2 Mirella Mccracken [facility] Internal Medicine Work Phone: 12-25-2016 10:08-0400 Body weight 66.28 kg Mirella Mccracken [facility] Internal Medicine Work Phone: 12-25-2016 10:08-0400 BP Diastolic 80 mm[Hg] Mirella Mccracken [facility] Internal Medicine Work Phone: Comment on above: Patient Position: Sitting; Cuff Location : Left Arm; Cuff Size: Large 12-25-2016 10:08-0400 BP Systolic 122 mm[Hg] Mirella Mccracken [facility] Internal Medicine Work Phone: Comment on above: Patient Position: Sitting; Cuff Location : Left Arm; Cuff Size: Large 12-25-2016 10:08-0400 BSA (Body Surface Area) 1.61 m2 Mirella Mccracken [facility] Internal Medicine Work Phone: 12-25-2016 10:08-0400 Height 149.86 cm Mirella Mccracken [facility] Internal Medicine Work Phone: 12-25-2016 10:08-0400 Pulse (Heart Rate) 69 /min Mirella Mccracken [facility] Internal Medicine Work Phone: Comment on above: Pattern: Regular 12-25-2016 10:08-0400 Pulse Oximetry 98 % Mirella Mccracken [facility] Internal Medicine Work Phone: Comment on above: Room air 12-25-2016 10:08-0400 Respiratory Rate 18 /min Mirella Mccracken [facility] Internal Medicine Work Phone: Comment on above: Pattern: Unlabored 12-25-2016 10:08-0400 Weight 66.28 kg Mirella Mccracken [facility] Internal Medicine Work Phone: 11-03-2016 14:09-0500 BSA (Body Surface Area) 1.59 m2 [facility] Work Phone: 09-25-2016 07:51-0500 BMI (Body Mass Index) 29.94 kg/m2 Mirella Mccracken [facility] Internal Medicine Work Phone: 09-25-2016 07:51-0500 Body Temperature 97.6 [degF] Mirella Mccracken [facility] Internal Medicine Work Phone: 09-25-2016 07:51-0500 Body weight 67.25 kg Mirella Mccracken [facility] Internal Medicine Work Phone: 09-25-2016 07:51-0500 BP Diastolic 78 mm[Hg] Mirella Mccracken [facility] Internal Medicine Work Phone: Comment on above: Patient Position: Sitting; Cuff Location : Left Arm; Cuff Size: Standard 09-25-2016 07:51-0500 BP Systolic 122 mm[Hg] Mirella Mccracken [facility] Internal Medicine Work Phone: Comment on above: Patient Position: Sitting; Cuff Location : Left Arm; Cuff Size: Standard 09-25-2016 07:51-0500 BSA (Body Surface Area) 1.62 m2 Mirella Mccracken [facility] Internal Medicine Work Phone: 09-25-2016 07:51-0500 Height 149.86 cm Mirella Mccracken [facility] Internal Medicine Work Phone: 09-25-2016 07:51-0500 Pulse (Heart Rate) 94 /min Mirella Mccracken [facility] Internal Medicine Work Phone: Comment on above: Pattern: Regular 09-25-2016 07:51-0500 Pulse Oximetry 96 % Mirella Mccracken [facility] Internal Medicine Work Phone: Comment on above: Room air 09-25-2016 07:51-0500 Respiratory Rate 17 /min Mirella Mccracken [facility] Internal Medicine Work Phone: Comment on above: Pattern: Unlabored 09-25-2016 07:51-0500 Weight 67.25 kg Mirella Mccracken [facility] Internal Medicine Work Phone: 06-25-2016 08:52-0400 BMI (Body Mass Index) 29.54 kg/m2 Mirella Mccracken [facility] Internal Medicine Work Phone: 06-25-2016 08:52-0400 Body weight 66.34 kg Mirella Mccracken [facility] Internal Medicine Work Phone: 06-25-2016 08:52-0400 BP Diastolic 60 mm[Hg] Mirella Mccracken [facility] Internal Medicine Work Phone: Comment on above: Patient Position: Sitting; Cuff Location : Left Arm; Cuff Size: Standard 06-25-2016 08:52-0400 BP Systolic 110 mm[Hg] Mirella Mccracken [facility] Internal Medicine Work Phone: Comment on above: Patient Position: Sitting; Cuff Location : Left Arm; Cuff Size: Standard 06-25-2016 08:52-0400 BSA (Body Surface Area) 1.61 m2 Mirella Mccracken [facility] Internal Medicine Work Phone: 06-25-2016 08:52-0400 Height 149.86 cm Mirella Mccracken [facility] Internal Medicine Work Phone: 06-25-2016 08:52-0400 Pulse (Heart Rate) 72 /min Mirella Mccracken [facility] Internal Medicine Work Phone: Comment on above: Pattern: Regular 06-25-2016 08:52-0400 Pulse Oximetry 100 % Mirella Mccracken [facility] Internal Medicine Work Phone: Comment on above: Room air 06-25-2016 08:52-0400 Respiratory Rate 18 /min Mirella Mccracken [facility] Internal Medicine Work Phone: Comment on above: Pattern: Unlabored 06-25-2016 08:52-0400 Weight 66.34 kg Mirella Mccracken [facility] Internal Medicine Work Phone: 05-21-2016 08:08-0400 BMI (Body Mass Index) 29.39 kg/m2 [facility] Work Phone: 05-21-2016 08:08-0400 Body Temperature 97.2 [degF] Mirella Mccracken [facility] Internal Medicine Work Phone: 05-21-2016 08:08-0400 Body weight 66 kg Mirella Mccracken [facility] Internal Medicine Work Phone: 05-21-2016 08:08-0400 BP Diastolic 82 mm[Hg] Mirella Mccracken [facility] Internal Medicine Work Phone: Comment on above: Patient Position: Sitting; Cuff Location : Left Arm; Cuff Size: Standard 05-21-2016 08:08-0400 BP Systolic 124 mm[Hg] Mirella Mccracken [facility] Internal Medicine Work Phone: Comment on above: Patient Position: Sitting; Cuff Location : Left Arm; Cuff Size: Standard 05-21-2016 08:08-0400 BSA (Body Surface Area) 1.61 m2 Mirella Mccracken [facility] Internal Medicine Work Phone: 05-21-2016 08:08-0400 Height 149.86 cm Mirella Mccracken [facility] Internal Medicine Work Phone: 05-21-2016 08:08-0400 Pulse (Heart Rate) 80 /min Mirella Mccracken [facility] Internal Medicine Work Phone: Comment on above: Pattern: Regular 05-21-2016 08:08-0400 Pulse Oximetry 98 % Mirella Mccracken [facility] Internal Medicine Work Phone: Comment on above: Room air 05-21-2016 08:08-0400 Respiratory Rate 16 /min Mirella Mccracken [facility] Internal Medicine Work Phone: Comment on above: Pattern: Unlabored 05-21-2016 08:08-0400 Weight 66 kg Mirella Mccracken [facility] Internal Medicine Work Phone: 01-04-2016 09:52-0400 BMI (Body Mass Index) 29.59 kg/m2 Mirella [facility] Internal Medicine Work Phone: 01-04-2016 09:52-0400 Body weight 66.45 kg Mirella [facility] Internal Medicine Work Phone: 01-04-2016 09:52-0400 BP Diastolic 64 mm[Hg] Mirella [facility] Work Phone: Comment on above: Patient Position: Sitting; Cuff Location : Left Arm; Cuff Size: Standard 01-04-2016 09:52-0400 BP Systolic 110 mm[Hg] Mirella Mccracken [facility] Work Phone: Comment on above: Patient Position: Sitting; Cuff Location : Left Arm; Cuff Size: Standard 01-04-2016 09:52-0400 BSA (Body Surface Area) 1.62 m2 Mirella Mccracken [facility] Internal Medicine Work Phone: 01-04-2016 09:52-0400 Height 149.86 cm Mirella Mccracken [facility] Work Phone: 01-04-2016 09:52-0400 Pulse (Heart Rate) 64 /min Mirella Mccracken [facility] Internal Medicine Work Phone: Comment on above: Pattern: Regular 01-04-2016 09:52-0400 Pulse Oximetry 97 % Mirella Mccracken [facility] Internal Medicine Work Phone: Comment on above: Room air 01-04-2016 09:52-0400 Respiratory Rate 18 /min Mirella Mccracken [facility] Internal Medicine Work Phone: Comment on above: Pattern: Unlabored 01-04-2016 09:52-0400 Weight 66.45 kg Mirella Mccracken [facility] Internal Medicine Work Phone: 12-06-2015 09:19-0400 BMI (Body Mass Index) 29.89 kg/m2 Mirella Solano [facility] Internal Medicine Work Phone: 12-06-2015 09:19-0400 Body weight 67.13 kg Mirella Mccracken [facility] Internal Medicine Work Phone: 12-06-2015 09:19-0400 BP Diastolic 78 mm[Hg] Mirella Mccracken [facility] Internal Medicine Work Phone: Comment on above: Patient Position: Sitting; Cuff Location : Left Arm; Cuff Size: Large 12-06-2015 09:19-0400 BP Systolic 122 mm[Hg] Mirella Mccracken [facility] Internal Medicine Work Phone: Comment on above: Patient Position: Sitting; Cuff Location : Left Arm; Cuff Size: Large 12-06-2015 09:19-0400 BSA (Body Surface Area) 1.62 m2 Mirella Mccracken [facility] Internal Medicine Work Phone: 12-06-2015 09:19-0400 Height 149.86 cm Mirella Mccracken [facility] Internal Medicine Work Phone: 12-06-2015 09:19-0400 Pulse (Heart Rate) 73 /min Mirella Mccracken [facility] Internal Medicine Work Phone: Comment on above: Pattern: Regular 12-06-2015 09:19-0400 Pulse Oximetry 99 % Mirella Mccracken [facility] Internal Medicine Work Phone: Comment on above: Room air 12-06-2015 09:19-0400 Respiratory Rate 18 /min Mirella Mccracken [facility] Internal Medicine Work Phone: Comment on above: Pattern: Unlabored 12-06-2015 09:19-0400 Weight 67.13 kg Mirella Mccracken [facility] Internal Medicine Work Phone: 11-29-2015 09:09-0400 BMI (Body Mass Index) 29.72 kg/m2 Mirella Mccracken [facility] Internal Medicine Work Phone: 11-29-2015 09:09-0400 Body Temperature 98.2 [degF] Mirella Mccracken [facility] Internal Medicine Work Phone: Comment on above: Method: Oral 11-29-2015 09:09-0400 Body weight 66.74 kg Mirella Mccracken [facility] Internal Medicine Work Phone: 11-29-2015 09:09-0400 BP Diastolic 58 mm[Hg] Mirella Mccracken [facility] Internal Medicine Work Phone: Comment on above: Patient Position: Sitting; Cuff Location : Left Arm; Cuff Size: Large 11-29-2015 09:09-0400 BP Systolic 100 mm[Hg] Mirella Mccracken [facility] Internal Medicine Work Phone: Comment on above: Patient Position: Sitting; Cuff Location : Left Arm; Cuff Size: Large 11-29-2015 09:09-0400 BSA (Body Surface Area) 1.62 m2 Mirella Mccracken [facility] Internal Medicine Work Phone: 11-29-2015 09:09-0400 Height 149.86 cm Mirella Mccracken [facility] Internal Medicine Work Phone: 11-29-2015 09:09-0400 Pulse (Heart Rate) 71 /min Mirella Mccracken [facility] Internal Medicine Work Phone: Comment on above: Pattern: Regular 11-29-2015 09:09-0400 Pulse Oximetry 98 % Mirella Mccracekn [facility] Internal Medicine Work Phone: Comment on above: Room air 11-29-2015 09:09-0400 Respiratory Rate 18 /min Mirella Mccracken [facility] Internal Medicine Work Phone: Comment on above: Pattern: Unlabored 11-29-2015 09:09-0400 Weight 66.74 kg Mirella Mccracken [facility] Internal Medicine Work Phone: 10-24-2015 10:01-0500 BMI (Body Mass Index) 30.78 kg/m2 Mirella Mccracken [facility] Internal Medicine Work Phone: Comment on above: [facility]-24-2015 10:01-0500 Body weight 69.12 kg Mirella Mccracken [facility] Internal Medicine Work Phone: Comment on above: [facility] 10-24-2015 10:01-0500 BP Diastolic 82 mm[Hg] Mirella Mccracken [facility] Internal Medicine Work Phone: Comment on above: Patient Position: Sitting; Cuff Location : Left Arm; Cuff Size: Large [facility] 10:01-0500 BP Systolic 124 mm[Hg] Mirella [facility] Internal Medicine Work Phone: Comment on above: Patient Position: Sitting; Cuff Location : Left Arm; Cuff Size: Large [facility] 10-24-2015 10:01-0500 BSA (Body Surface Area) 1.64 m2 [facility] Internal Medicine Work Phone: Comment on above[facility] 10:01-0500 Height 149.86 cm [facility] Internal Medicine Work Phone: Comment on above: [facility]-2015 10:01-0500 Pulse (Heart Rate) 66 /min [facility] Internal Medicine Work Phone: Comment on above: Pattern: Regular [facility] 10:01-0500 Pulse Oximetry 98 % [facility] Internal Medicine Work Phone: Comment on above: Room air [facility] 10:01-0500 Respiratory Rate 18 /min [facility] Internal Medicine Work Phone: Comment on above: Pattern: Unlabored [facility]-2015 10:01-0500 Weight 69.12 kg Mirella Nicole [facility] Internal Medicine Work Phone: Comment on above: [facility] 07-26-2015 10:22-0500 BMI (Body Mass Index) 32.32 kg/m2 Mirellazac Mccracken [facility] Internal Medicine Work Phone: 07-26-2015 10:22-0500 Body weight 72.58 kg [facility] Internal Medicine Work Phone: 07-26-2015 10:22-0500 [...] (Body Surface Area) 1.68 m2 Mirella Mccracken [facility] Internal Medicine Work Phone: 07-26-2015 10:22-0500 Height 149.86 cm Mirella Mccracken [facility] Internal Medicine Work Phone: 07-26-2015 10:22-0500 Pulse (Heart Rate) 62 /min Mirella Mccracken [facility] Internal Medicine Work Phone: Comment on above: Pattern: Regular 07-26-2015 10:22-0500 Pulse Oximetry 98 % Mirella Mccracken [facility] Internal Medicine Work Phone: Comment on above: Room air 07-26-2015 10:22-0500 Respiratory Rate 18 /min Mirella Mccracken [facility] Internal Medicine Work Phone: Comment on above: Pattern: Unlabored 07-26-2015 10:22-0500 Weight 72.58 kg Mirella Mccracken [facility] Internal Medicine Work Phone: 07-06-2015 09:03-0400 Body weight 72.12 kg Mirella Mccracken [facility] Internal Medicine Work Phone: 07-06-2015 09:03-0400 BP [...] Pulse (Heart Rate) 68 /min Mirella Mccracken [facility] Internal Medicine Work Phone: Comment on above: Pattern: Regular 07-06-2015 09:03-0400 Pulse Oximetry 98 % Mirella Mccracken [facility] Internal Medicine Work Phone: Comment on above: Room air 07-06-2015 09:03-0400 Respiratory Rate 18 /min Mirella Mccracken [facility] Internal Medicine Work Phone: Comment on above: Pattern: Unlabored 07-06-2015 09:03-0400 Weight 72.12 kg Mirella Mccracken [facility] Internal Medicine Work Phone: 04-19-2015 10:10-0400 BMI (Body Mass Index) 31.02 kg/m2 Mirella Mccracken [facility] Internal Medicine Work Phone: 04-19-2015 10:10-0400 Body Temperature 97.5 [degF] Mirella Mccracken [facility] Internal Medicine Work Phone: Comment on above: Method: Temporal 04-19-2015 10:10-0400 Body weight 69.67 kg Mirella Mccracken [facility] Internal Medicine Work Phone: 04-19-2015 10:10-0400 BP Diastolic 82 mm[Hg] Mirella Mccracken [facility] Internal Medicine Work Phone: Comment on above: Patient Position: Sitting; Cuff Location : Left Arm; Cuff Size: Standard 04-19-2015 10:10-0400 BP Systolic 124 mm[Hg] Mirella Mccracken [facility] Internal Medicine Work Phone: Comment on above: Patient Position: Sitting; Cuff Location : Left Arm; Cuff Size: Standard 04-19-2015 10:10-0400 BSA (Body Surface Area) 1.65 m2 Mirella Mccracken [facility] Internal Medicine Work Phone: 04-19-2015 10:10-0400 Height 149.86 cm Mirella Mccracken [facility] Internal Medicine Work Phone: 04-19-2015 10:10-0400 Pulse (Heart Rate) 62 /min Mirella Mccracken [facility] Internal Medicine Work Phone: Comment on above: Pattern: Regular 04-19-2015 10:100400 Pulse Oximetry 98 % Mirella Mccracken [facility] Internal Medicine Work Phone: Comment on above: Room air 04-19-2015 10:100400 Respiratory Rate 16 /min Mirella Mccracken [facility] Internal Medicine Work Phone: Comment on above: Pattern: Unlabored 04-19-2015 10:100400 Weight 69.67 kg Mirella Mccracken [facility] Internal Medicine Work Phone: 01-11-2015 10:29-0400 BMI (Body Mass Index) 31.2 kg/m2 Mirella Mccracken [facility] Internal Medicine Work Phone: 01-11-2015 10:29-0400 Body weight 70.08 kg Mirella Mccracken [facility] Internal Medicine Work Phone: 01-11-2015 10:29-0400 BP Diastolic 80 mm[Hg] Mirella Mccracken [facility] Internal Medicine Work Phone: Comment on above: Patient Position: Sitting; Cuff Location : Left Arm; Cuff Size: Standard 01-11-2015 10:29-0400 BP Systolic 128 mm[Hg] Mirella Mccracken [facility] Internal Medicine Work Phone: Comment on above: Patient Position: Sitting; Cuff Location : Left Arm; Cuff Size: Standard 01-11-2015 10:290400 BSA (Body Surface Area) 1.65 m2 Mirella Mccracken [facility] Internal Medicine Work Phone: 01-11-2015 10:29-0400 Height 149.86 cm Mirella Mccracken [facility] Internal Medicine Work Phone: 01-11-2015 10:29-0400 Pulse (Heart Rate) 56 /min Mirella Mccracken [facility] Internal Medicine Work Phone: Comment on above: Pattern: Regular 01-11-2015 10:0400 Pulse Oximetry 98 % Mirella Mccracken [facility] Internal Medicine Work [...] Phone: Comment on above: Method: Oral [facility] 03/2014hearing -wnl 10-12-2014 10:10-0500 Body weight 70.76 kg Mirella [facility] Work Phone: Comment on above: [facility] 03/2014[facility] 10-12-2014 10:10-0500 BP Diastolic 82 mm[Hg] Mirella Mccrack[facility] Work Phone: Comment on above: Patient Position: Sitting; Cuff Location : Left Arm; Cuff Size: Large [facility] 03/2014[facility] 10-12-2014 10:10-0500 BP Systolic 132 mm[Hg] Mirella M[facility] Work Phone: Comment on above: Patient Position: Sitting; Cuff Location : Left Arm; Cuff Size: Large [facility] 03/2014[facility] 10-12-2014 10:10-0500 Pulse (Heart Rate) 61 /min Mirella Mccrack[facility] Work Phone: Comment on above: Pattern: Regular [facility] 03/2014[facility] 10-12-2014 10:10-0500 Pulse Oximetry 96 % Mirella [facility] Work Phone: Comment on above: Room air [facility] 03/2014[facility] 10-12-2014 10:10-0500 Respiratory Rate 18 /min Mirella Mccracken [facility] Internal Medicine Work Phone: Comment on above: Pattern: Unlabored [facility] 03/2014[facility] 10-12-2014 10:10-0500 Weight 70.76 kg Mirella [facility] Work Phone: Comment on above: [facility] 03/2014[facility] 08-31-2014 11:25-0500 Body weight 68.66 kg [...] 08-31-2014 11:25-0500 Weight 68.66 kg Mirella Mccracken [facility] Internal Medicine Work Phone: 08-14-2014 14:10-0500 Body Temperature 97.3 [degF] Mirella Mccracken [facility] Internal Medicine Work Phone: Comment on above: Method: Oral 08-14-2014 14:10-0500 Body weight 69.15 kg Mirella Mccracken [facility] Internal Medicine Work Phone: 08-14-2014 14:10-0500 BP [...] 14:10-0500 Pulse Oximetry 97 % Mirella [facility]rack[facility] Work Phone: Comment on above: Room air 08-14-2014 14:10-0500 Respiratory Rate 16 /min Mirella Mccracken [facility] Internal Medicine Work Phone: Comment on above: Pattern: Unlabored 08-14-2014 14:10-0500 Weight 69.15 kg Mirella Mccracken [facility] Internal Medicine Work Phone: 07-26-2014 10:15-0500 BMI (Body Mass Index) 30.55 kg/m2 [facility] Work Phone: 07-26-2014 10:15-0500 Body Temperature 97.4 [degF] Mirella Mcrcacken [facility] Internal Medicine Work Phone: Comment on above: Method: Oral 07-26-2014 10:15-0500 Body weight 68.61 kg Mirella Mccracken [facility] Internal Medicine Work Phone: 07-26-2014 10:15-0500 BP Diastolic 70 mm[Hg] Mirella Mccracken [facility] Internal Medicine Work Phone: Comment on above: Patient Position: Sitting; Cuff Location : Left Arm; Cuff Size: Standard 07-26-2014 10:15-0500 BP Systolic 110 mm[Hg] Mirella Mccracken [facility] Internal Medicine Work Phone: Comment on above: Patient Position: Sitting; Cuff Location : Left Arm; Cuff Size: Standard 07-26-2014 10:15-0500 BSA (Body Surface Area) 1.64 m2 Mirella Mccracken [facility] Internal Medicine Work Phone: 07-26-2014 10:15-0500 Height 149.86 cm Mirella Mccracken [facility] Internal Medicine Work Phone: 07-26-2014 10:15-0500 Pulse (Heart Rate) 66 /min Mirella Mccracken [facility] Internal Medicine Work Phone: Comment on above: Pattern: Regular 07-26-2014 10:15-0500 Pulse Oximetry 95 % Mirella Mccracken [facility] Internal Medicine Work Phone: Comment on above: Room air 07-26-2014 10:15-0500 Respiratory Rate 15 /min Mirella Mccracken [facility] Internal Medicine Work Phone: 07-26-2014 10:15-0500 Weight 68.61 kg Mirella Mccracken [facility] Internal Medicine Work Phone: 07-25-2014 14:56-0500 BMI (Body Mass Index) 30.55 kg/m2 Mirella Solano [facility] Internal Medicine Work Phone: 07-25-2014 14:56-0500 Body weight 68.61 kg Mirella [facility] Work Phone: 07-25-2014 14:56-0500 BP Diastolic 80 mm[Hg] Mirella Mccracken [facility] Internal Medicine Work Phone: Comment on above: Patient Position: Sitting; Cuff Location : Left Arm; Cuff Size: Large 07-25-2014 14:56-0500 BP Systolic 140 mm[Hg] Mirella Mccracken [facility] Internal Medicine Work Phone: Comment on above: Patient Position: Sitting; Cuff Location : Left Arm; Cuff Size: Large 07-25-2014 14:56-0500 BSA (Body Surface Area) 1.64 m2 Mirella [facility] Work Phone: 07-25-2014 14:56-0500 Height 149.86 cm Mirella [facility] Work Phone: 07-25-2014 14:56-0500 Pulse (Heart Rate) 59 /min Mirella Mccracken [facility] Internal Medicine Work Phone: Comment on above: Pattern: Regular 07-25-2014 14:56-0500 Pulse Oximetry 98 % Mirella Mccracken [facility] Internal Medicine Work Phone: Comment on above: Room air 07-25-2014 14:56-0500 Respiratory Rate 18 /min Mirella Mccracken [facility] Internal Medicine Work Phone: Comment on above: Pattern: Unlabored 07-25-2014 14:56-0500 Weight 68.61 kg Mirella Mccracken [facility] Internal Medicine Work Phone: 07-13-2014 12:20-0400 BMI (Body Mass Index) 30.5 kg/m2 Mirella Solano [facility] Internal Medicine Work Phone: 07-13-2014 12:20-0400 Body weight 68.49 kg Mirella Sunshine Internal Medicine Work Phone: 07-13-2014 12:20-0400 BP Diastolic 78 mm[Hg] Mirella Mccracken [facility] Internal Medicine Work Phone: Comment on above: Patient Position: Sitting; Cuff Location : Left Arm; Cuff Size: Large 07-13-2014 12:20-0400 BP Systolic 138 mm[Hg] Mirella Mccracken [facility] Internal Medicine Work Phone: Comment on above: Patient Position: Sitting; Cuff Location : Left Arm; Cuff Size: Large 07-13-2014 12:20-0400 BSA (Body Surface Area) 1.64 m2 Mirella Mccracken [facility] Internal Medicine Work Phone: 07-13-2014 12:20-0400 Height 149.86 cm Mirella Mccracken [facility] Internal Medicine Work Phone: 07-13-2014 12:20-0400 Pulse (Heart Rate) 58 /min Mirella Mccracken [facility] Internal Medicine Work Phone: Comment on above: Pattern: Regular 07-13-2014 12:20-0400 Pulse Oximetry 96 % Mirella Mccracken [facility] Internal Medicine Work Phone: Comment on above: Room air 07-13-2014 12:20-0400 Respiratory Rate 20 /min Mirella Mccracken [facility] Internal Medicine Work Phone: Comment on above: Pattern: Unlabored 07-13-2014 12:20-0400 Weight 68.49 kg Mirella Mccracken [facility] Internal Medicine Work Phone: 04-17-2014 11:27-0400 BMI (Body Mass Index) 30.59 kg/m2 Mirella Mccracken [facility] Internal Medicine Work Phone: 04-17-2014 11:27-0400 Body weight 68.69 kg Mirella Mccracken [facility] Internal Medicine Work Phone: 04-17-2014 11:27-0400 BP Diastolic 70 mm[Hg] Mirella Mccracken [facility] Internal Medicine Work Phone: Comment on above: Patient Position: Sitting; Cuff Location : Left Arm; Cuff Size: Large 04-17-2014 11:270400 BP Systolic 124 mm[Hg] Mirella Mccracken [facility] Internal Medicine Work Phone: Comment on above: Patient Position: Sitting; Cuff Location : Left Arm; Cuff Size: Large 04-17-2014 11:270400 BSA (Body Surface Area) 1.64 m2 Mirella Mccracken [facility] Internal Medicine Work Phone: 04-17-2014 11:27-040 Height 149.86 cm Mirella Mccracken [facility] Internal Medicine Work Phone: 04-17-2014 11:27-0400 Pulse (Heart Rate) 72 /min Mirella Mccracken [facility] Internal Medicine Work Phone: Comment on above: Pattern: Regular 04-17-2014 11:27-0400 Pulse Oximetry 97 % Mirella Mccracken [facility] Internal Medicine Work Phone: Comment on above: Room air 04-17-2014 11:27-0400 Respiratory Rate 18 /min Mirella Mccracken [facility] Internal Medicine Work Phone: Comment on above: Pattern: Unlabored 04-17-2014 11:27-0400 Weight 68.69 kg Mirella Mccracken [facility] Internal Medicine Work Phone: 04-06-2014 11:09-0400 BMI (Body Mass Index) 30.59 kg/m2 Mirella Mccracken [facility] Internal Medicine Work Phone: 04-06-2014 11:09-0400 Body weight 68.69 kg Mirella Mccracken [facility] Internal Medicine Work Phone: 04-06-2014 11:09-0400 BP Diastolic 80 mm[Hg] Mirella Mccracken [facility] Internal Medicine Work Phone: Comment on above: Patient Position: Sitting; Cuff Location : Left Arm; Cuff Size: Standard 04-06-2014 11:090400 BP Systolic 142 mm[Hg] Mirella Mccracken [facility] Internal Medicine Work Phone: Comment on above: Patient Position: Sitting; Cuff Location : Left Arm; Cuff Size: Standard 04-06-2014 11:09-0400 BSA (Body Surface Area) 1.64 m2 Mirella Mccracken [facility] Internal Medicine Work Phone: 04-06-2014 11:040 Height 149.86 cm Mirella Mccracken [facility] Internal Medicine Work Phone: 04-06-2014 11:0400 Pulse (Heart Rate) 73 /min Mirella Mccracken [facility] Internal Medicine Work Phone: Comment on above: Pattern: Regular 04-06-2014 11:040 Pulse Oximetry 97 % Mirella Mccracken [facility] Internal Medicine Work Phone: Comment on above: Room air 04-06-2014 11:040 Respiratory Rate 18 /min Mirella Mccracken [facility] Internal Medicine Work Phone: Comment on above: Pattern: Unlabored 04-06-2014 11:040 Weight 68.69 kg Mirella Mccracken [facility] Internal Medicine Work Phone: 12-30-2013 10:27-0400 BMI (Body Mass Index) 32.03 kg/m2 Mirella Mccracken [facility] Internal Medicine Work Phone: 12-30-2013 10:270400 Body Temperature 98.2 [degF] Mirella Mccracken [facility] Internal Medicine Work Phone: Comment on above: Method: Oral 12-30-2013 10:0400 Body weight 71.92 kg Mirella Mccracken [facility] Internal Medicine Work Phone: 12-30-2013 10:27-0400 BP Diastolic 70 mm[Hg] Mirella Mccracken [facility] Internal Medicine Work Phone: Comment on above: Patient Position: Sitting; Cuff Location : Left Arm; Cuff Size: Large 12-30-2013 10:27-0400 BP Systolic 120 mm[Hg] Mirella Mccracken [facility] Internal Medicine Work Phone: Comment on above: Patient Position: Sitting; Cuff Location : Left Arm; Cuff Size: Large 12-30-2013 10:27-0400 BSA (Body Surface Area) 1.67 m2 Mirella Mccracken [facility] Internal Medicine Work Phone: 12-30-2013 10:0400 Height 149.86 cm Mirella Mccracken [facility] Internal Medicine Work Phone: 12-30-2013 10:27-0400 Pulse (Heart Rate) 66 /min Mirella Mccracken [facility] Internal Medicine Work Phone: Comment on above: Pattern: Regular 12-30-2013 10:27-0400 Pulse Oximetry 97 % Mirella Mccracken [facility] Internal Medicine Work Phone: Comment on above: Room air 12-30-2013 10:27-0400 Respiratory Rate 20 /min Mirella Mccracken [facility] Internal Medicine Work Phone: Comment on above: Pattern: Unlabored 12-30-2013 10:27-0400 Weight 71.92 kg Mirella Mccracken [facility] Internal Medicine Work Phone: 12-22-2013 10:090400 BMI (Body Mass Index) 31.79 kg/m2 Mirella Mccracken [facility] Internal Medicine Work Phone: 12-22-2013 10:040 Body Temperature 98.2 [degF] Mirella Mccracken [facility] Internal Medicine Work Phone: Comment on above: Method: Oral 12-22-2013 10:090400 Body weight 71.39 kg Mirella Mccracken [facility] Internal Medicine Work Phone: 12-22-2013 10:090400 BP Diastolic 60 mm[Hg] Mirella Mccracken [facility] Internal Medicine Work Phone: Comment on above: Patient Position: Sitting; Cuff Location : Left Arm; Cuff Size: Large 12-22-2013 10:090400 BP Systolic 104 mm[Hg] Mirella Mccracken [facility] Internal Medicine Work Phone: Comment on above: Patient Position: Sitting; Cuff Location : Left Arm; Cuff Size: Large 12-22-2013 10:090400 BSA (Body Surface Area) 1.67 m2 Mirella Mccracken [facility] Internal Medicine Work Phone: 12-22-2013 10:090400 Height 149.86 cm Mirella Mccracken [facility] Internal Medicine Work Phone: 12-22-2013 10:09-0400 Pulse (Heart Rate) 65 /min Mirella Mccracken [facility] Internal Medicine Work Phone: Comment on above: Pattern: Regular 12-22-2013 10:09-0400 Pulse Oximetry 98 % Mirella Mccracken [facility] Internal Medicine Work Phone: Comment on above: Room air 12-22-2013 10:09-0400 Respiratory Rate 20 /min Mirella Mccracken [facility] Internal Medicine Work Phone: Comment on above: Pattern: Unlabored 12-22-2013 10:09-0400 Weight 71.39 kg Mirella Mccracken [facility] Internal Medicine Work Phone: 12-01-2013 09:54-0400 BMI (Body Mass Index) 32.32 kg/m2 Mirella Mccracken [facility] Internal Medicine Work Phone: 12-01-2013 09:54-0400 Body Temperature 98.4 [degF] Mirella Mccracken [facility] Internal Medicine Work Phone: Comment on above: Method: Temporal 12-01-2013 09:54-0400 Body weight 72.58 kg Mirella Mccracken [facility] Internal Medicine Work Phone: 12-01-2013 09:54-0400 BP Diastolic 62 mm[Hg] Mirella Mccracken [facility] Internal Medicine Work Phone: Comment on above: Patient Position: Sitting; Cuff Location : Left Arm; Cuff Size: Standard 12-01-2013 09:54-0400 BP Systolic 124 mm[Hg] Mirella Mccracken [facility] Internal Medicine Work Phone: Comment on above: Patient Position: Sitting; Cuff Location : Left Arm; Cuff Size: Standard 12-01-2013 09:54-0400 BSA (Body Surface Area) 1.68 m2 Mirella Mccracken [facility] Internal Medicine Work Phone: 12-01-2013 09:54-0400 Height 149.86 cm Mirella Mccracken [facility] Internal Medicine Work Phone: 12-01-2013 09:54-0400 Pulse (Heart Rate) 69 /min Mirella Mccracken [facility] Internal Medicine Work Phone: Comment on above: Pattern: Regular 12-01-2013 09:54-0400 Pulse Oximetry 97 % Mirella Mccracken [facility] Internal Medicine Work Phone: Comment on above: Room air 12-01-2013 09:54-0400 Respiratory Rate 16 /min Mirella Mccracken [facility] Internal Medicine Work Phone: Comment on above: Pattern: Unlabored 12-01-2013 09:54-0400 Weight 72.58 kg Mirella Mccracken [facility] Internal Medicine Work Phone: 09-23-2013 11:57-0500 BMI (Body Mass Index) 33.01 kg/m2 Mirella Mccracken [facility] Internal Medicine Work Phone: 09-23-2013 11:57-0500 Body weight 74.14 kg Mirella Mccracken [facility] Internal Medicine Work Phone: 09-23-2013 11:57-0500 BP Diastolic 80 mm[Hg] Mirella Mccracken [facility] Internal Medicine Work Phone: Comment on above: Patient Position: Sitting; Cuff Location : Left Arm; Cuff Size: Large 09-23-2013 11:57-0500 BP Systolic 122 mm[Hg] Mirella Mccracken [facility] Internal Medicine Work Phone: Comment on above: Patient Position: Sitting; Cuff Location : Left Arm; Cuff Size: Large 09-23-2013 11:57-0500 BSA (Body Surface Area) 1.69 m2 Mirella Mccracken [facility] Internal Medicine Work Phone: 09-23-2013 11:57-0500 Height 149.86 cm Mirella Mccracken [facility] Internal Medicine Work Phone: 09-23-2013 11:57-0500 Pulse (Heart Rate) 66 /min Mirella Mccracken [facility] Internal Medicine Work Phone: Comment on above: Pattern: Regular 09-23-2013 11:57-0500 Pulse Oximetry 98 % Mirella Mccracken [facility] Internal Medicine Work Phone: Comment on above: Room air 09-23-2013 11:57-0500 Respiratory Rate 18 /min Mirella Mccracken [facility] Internal Medicine Work Phone: Comment on above: Pattern: Unlabored 09-23-2013 11:57-0500 Weight 74.14 kg Mirella Mccracken [facility] Internal Medicine Work Phone: 08-01-2013 10:54-0500 BMI (Body Mass Index) 33.58 kg/m2 Mirella Mccracken [facility] Internal Medicine Work Phone: 08-01-2013 10:54-0500 Body Temperature 98.3 [degF] Mirella Mccracken [facility] Internal Medicine Work Phone: Comment on above: Method: Oral 08-01-2013 10:54-0500 Body weight 75.41 kg Mirella Mccracken [facility] Internal Medicine Work Phone: 08-01-2013 10:54-0500 BP Diastolic 60 mm[Hg] Mirella Mccracken [facility] Internal Medicine Work Phone: Comment on above: Patient Position: Sitting; Cuff Location : Left Arm; Cuff Size: Large 08-01-2013 10:54-0500 BP Systolic 102 mm[Hg] Mirella Mccracken [facility] Internal Medicine Work Phone: Comment on above: Patient Position: Sitting; Cuff Location : Left Arm; Cuff Size: Large 08-01-2013 10:54-0500 BSA (Body Surface Area) 1.7 m2 Mirella Mccracken [facility] Internal Medicine Work Phone: 08-01-2013 10:54-0500 Height 149.86 cm Mirella Mccracken [facility] Internal Medicine Work Phone: 08-01-2013 10:54-0500 Pulse (Heart Rate) 68 /min Mirella Mccracken [facility] Internal Medicine Work Phone: Comment on above: Pattern: Regular 08-01-2013 10:54-0500 Pulse Oximetry 97 % Mirella Mccracken [facility] Internal Medicine Work Phone: Comment on above: Room air 08-01-2013 10:54-0500 Respiratory Rate 20 /min [facility] Internal Medicine Work Phone: Comment on above: Pattern: Unlabored 08-01-2013 10:54-0500 Weight 75.41 kg [facility] Medicine Work Phone: 07-04-2013 09:33-0400 BMI (Body Mass Index) 33.73 kg/m2 [facility] Internal Medicine Work Phone: Comment on above: hearing wnlvision Dr. Jones 07-04-2013 09:33-0400 Body Temperature 98.2 [degF] [facility] Internal Medicine Work Phone: Comment on above: Method: Oral hearing wnlvision Dr Samaria Jones 07-04-2013 09:33-0400 Body weight 75.75 kg [facility] Internal Medicine Work Phone: Comment on above: hearing wnlvision Dr. Jones 07-04-2013 09:33-0400 BP Diastolic 62 mm[Hg] [facility] Internal Medicine Work Phone: Comment on above: Patient Position: Sitting; Cuff Location : Left Arm; Cuff Size: Large hearing yazminlvольга Jones 07-04-2013 09:33-0400 BP Systolic 120 mm[Hg] [facility] Internal Medicine Work Phone: Comment on above: Patient Position: Sitting; Cuff Location : Left Arm; Cuff Size: Large hearing wnlvольга Jones 07-04-2013 09:33-0400 BSA (Body Surface Area) 1.71 m2 [facility] Internal Medicine Work Phone: Comment on above: hearing wnlvision Dr. Jones 07-04-2013 09:33-0400 Height 149.86 cm [facility] Internal Medicine Work Phone: Comment on above: hearing wnlvision Dr. Jones 07-04-2013 09:33-0400 Pulse (Heart Rate) 52 /min [facility] Internal Medicine Work Phone: Comment on above: Pattern: Regular hearing wnlvision Dr Samaria Jones 07-04-2013 09:33-0400 Pulse Oximetry 97 % Mirella Mccracken [facility] Internal Medicine Work Phone: Comment on above: Room air hearing wnlvision Dr Samaria Jones 07-04-2013 09:33-0400 Respiratory Rate 20 /min Mirella Mccracken [facility] Internal Medicine Work Phone: Comment on above: Pattern: Unlabored hearing wnlvision Dr Samaria Jones 07-04-2013 09:33-0400 Weight 75.75 kg Mirella Mccracken [facility] Internal Medicine Work Phone: Comment on above: hearing wnlvision Dr. Jones 06-27-2013 14:49-0400 BMI (Body Mass Index) 33.73 kg/m2 Mirella Mccracken [facility] Internal Medicine Work Phone: 06-27-2013 14:49-0400 Body weight 75.75 kg Mirella Mccracken [facility] Internal Medicine Work Phone: 06-27-2013 14:49-0400 BP Diastolic 62 mm[Hg] Mirella Mccracken [facility] Internal Medicine Work Phone: Comment on above: Patient Position: Sitting; Cuff Location : Left Arm; Cuff Size: Large 06-27-2013 14:49-0400 BP Systolic 128 mm[Hg] Mirella Mccracken [facility] Internal Medicine Work Phone: Comment on above: Patient Position: Sitting; Cuff Location : Left Arm; Cuff Size: Large 06-27-2013 14:49-0400 BSA (Body Surface Area) 1.71 m2 Mirella Mccracken [facility] Internal Medicine Work Phone: 06-27-2013 14:49-0400 Height 149.86 cm Mirella Mccracken [facility] Internal Medicine Work Phone: 06-27-2013 14:49-0400 Pulse (Heart Rate) 61 /min Mirella Mccracken [facility] Internal Medicine Work Phone: Comment on above: Pattern: Regular 06-27-2013 14:49-0400 Pulse Oximetry 98 % Mirella Mccracken [facility] Internal Medicine Work Phone: Comment on above: Room air 06-27-2013 14:49-0400 Respiratory Rate 20 /min Mirella Mccracken [facility] Internal Medicine Work Phone: Comment on above: Pattern: Unlabored 06-27-2013 14:49-0400 Weight 75.75 kg Mirella Mccracken [facility] Internal Medicine Work Phone: 06-20-2013 12:56-0400 BMI (Body Mass Index) 33.53 kg/m2 Mirella Mccracken [facility] Internal Medicine Work Phone: 06-20-2013 12:56-0400 Body Temperature 97.6 [degF] Mirella Mccracken [facility] Internal Medicine Work Phone: Comment on above: Method: Oral 06-20-2013 12:56-0400 Body weight 75.3 kg Mirella Mccracken [facility] Internal Medicine Work Phone: 06-20-2013 12:56-0400 BP Diastolic 68 mm[Hg] Mirella Mccracken [facility] Internal Medicine Work Phone: Comment on above: Patient Position: Sitting; Cuff Location : Left Arm; Cuff Size: Standard 06-20-2013 12:56-0400 BP Systolic 118 mm[Hg] Mirella Mccracken [facility] Internal Medicine Work Phone: Comment on above: Patient Position: Sitting; Cuff Location : Left Arm; Cuff Size: Standard 06-20-2013 12:56-0400 BSA (Body Surface Area) 1.7 m2 Mirella Mccracken [facility] Internal Medicine Work Phone: 06-20-2013 12:56-0400 Height 149.86 cm Mirella Mccracken [facility] Internal Medicine Work Phone: 06-20-2013 12:56-0400 Pulse (Heart Rate) 68 /min Mirella Mccracken [facility] Internal Medicine Work Phone: Comment on above: Pattern: Regular 06-20-2013 12:56-0400 Respiratory Rate 20 /min Mirella Mccracken [facility] Internal Medicine Work Phone: Comment on above: Pattern: Unlabored 06-20-2013 12:56-0400 Weight 75.3 kg Mirella Mccracken [facility] Internal Medicine Work Phone: 05-20-2013 08:13-0400 BMI (Body Mass Index) 33.63 kg/m2 Mirella Solano [facility] Internal Medicine Work Phone: 05-20-2013 08:13-0400 Body weight 75.52 kg Mirella Mccracken [facility] Internal Medicine Work Phone: 05-20-2013 08:13-0400 BP Diastolic 62 mm[Hg] Mirella Mccracken [facility] Internal Medicine Work Phone: Comment on above: Patient Position: Sitting; Cuff Location : Left Arm; Cuff Size: Standard 05-20-2013 08:13-0400 BP Systolic 128 mm[Hg] Mirella Mccracken [facility] Internal Medicine Work Phone: Comment on above: Patient Position: Sitting; Cuff Location : Left Arm; Cuff Size: Standard 05-20-2013 08:13-0400 BSA (Body Surface Area) 1.71 m2 Mirella Mccracken [facility] Internal Medicine Work Phone: 05-20-2013 08:13-0400 Height 149.86 cm Mirella Mccracken [facility] Internal Medicine Work Phone: 05-20-2013 08:13-0400 Pulse (Heart Rate) 60 /min Mirella Mccracken [facility] Internal Medicine Work Phone: Comment on above: Pattern: Regular 05-20-2013 08:13-0400 Respiratory Rate 20 /min Mirella Mccracken [facility] Internal Medicine Work Phone: Comment on above: Pattern: Unlabored 05-20-2013 08:13-0400 Weight 75.52 kg Mirella Mccracken [facility] Internal Medicine Work Phone: 04-22-2013 15:16-0400 BMI (Body Mass Index) 33.63 kg/m2 Mirella Solano [facility] Internal Medicine Work Phone: 04-22-2013 15:16-0400 Body Temperature 96 [degF] Mirella Mccracken [facility] Internal Medicine Work Phone: Comment on above: Method: Oral 04-22-2013 15:16-0400 Body weight 75.52 kg Mirella Mccracken [facility] Internal Medicine Work Phone: 04-22-2013 15:16-0400 BP Diastolic 74 mm[Hg] Mirella Mccracken [facility] Internal Medicine Work Phone: Comment on above: Patient Position: Sitting; Cuff Location : Left Arm; Cuff Size: Large 04-22-2013 15:16-0400 BP Systolic 126 mm[Hg] Mirella Mccracken [facility] Internal Medicine Work Phone: Comment on above: Patient Position: Sitting; Cuff Location : Left Arm; Cuff Size: Large 04-22-2013 15:16-0400 BSA (Body Surface Area) 1.71 m2 Mirella Mccracken [facility] Internal Medicine Work Phone: 04-22-2013 15:16-0400 Height 149.86 cm Mirella Mccracken [facility] Internal Medicine Work Phone: 04-22-2013 15:16-0400 Pulse (Heart Rate) 64 /min Mirella Mccracken [facility] Internal Medicine Work Phone: Comment on above: Pattern: Regular 04-22-2013 15:16-0400 Respiratory Rate 18 /min Mirella Mccracken [facility] Internal Medicine Work Phone: Comment on above: Pattern: Unlabored 04-22-2013 15:16-0400 Weight 75.52 kg Mirella Mccracken [facility] Internal Medicine Work Phone: 04-15-2013 15:12-0400 BMI (Body Mass Index) 34.65 kg/m2 Mirella Mccracken [facility] Internal Medicine Work Phone: 04-15-2013 15:12-0400 Body Temperature 98 [degF] Mirella Mccracken [facility] Internal Medicine Work Phone: Comment on above: Method: Oral 04-15-2013 15:12-0400 Body weight 77.82 kg Mirella Mccracken [facility] Internal Medicine Work Phone: 04-15-2013 15:12-0400 BP Diastolic 70 mm[Hg] Mirella Mccracken [facility] Internal Medicine Work Phone: Comment on above: Patient Position: Sitting; Cuff Location : Left Arm; Cuff Size: Standard 04-15-2013 15:12-0400 BP Systolic 120 mm[Hg] Mirella Mccracken [facility] Internal Medicine Work Phone: Comment on above: Patient Position: Sitting; Cuff Location : Left Arm; Cuff Size: Standard 04-15-2013 15:12-0400 BSA (Body Surface Area) 1.73 m2 Mirella Mccracken [facility] Internal Medicine Work Phone: 04-15-2013 15:12-0400 Height 149.86 cm Mirella Mccracken [facility] Internal Medicine Work Phone: 04-15-2013 15:12-0400 Pulse (Heart Rate) 64 /min Mirella Mccracken [facility] Internal Medicine Work Phone: Comment on above: Pattern: Regular 04-15-2013 15:12-0400 Pulse Oximetry 98 % Mirella Mccracken [facility] Internal Medicine Work Phone: Comment on above: Room air 04-15-2013 15:12-0400 Weight 77.82 kg Mirella Mccracken [facility] Internal Medicine Work Phone: 03-31-2013 11:15-0400 BMI (Body Mass Index) 32.96 kg/m2 Mirella Mccracken [facility] Internal Medicine Work Phone: 03-31-2013 11:15-0400 Body Temperature 97.5 [degF] Mirella Mccracken [facility] Internal Medicine Work Phone: Comment on above: Method: Oral 03-31-2013 11:15-0400 Body weight 74.02 kg Mirella Mccracken [facility] Internal Medicine Work Phone: 03-31-2013 11:15-0400 BP Diastolic 60 mm[Hg] Mirella Mccracken [facility] Internal Medicine Work Phone: Comment on above: Patient Position: Sitting; Cuff Location : Left Arm; Cuff Size: Large 03-31-2013 11:15-0400 BP Systolic 118 mm[Hg] Mirella Mccracken [facility] Internal Medicine Work Phone: Comment on above: Patient Position: Sitting; Cuff Location : Left Arm; Cuff Size: Large 03-31-2013 11:15-0400 BSA (Body Surface Area) 1.69 m2 Mirella Mccracken [facility] Internal Medicine Work Phone: 03-31-2013 11:15-0400 Height 149.86 cm Mirella Mccracken [facility] Internal Medicine Work Phone: 03-31-2013 11:15-0400 Pulse (Heart Rate) 60 /min Mirella Mccracken [facility] Internal Medicine Work Phone: Comment on above: Pattern: Regular 03-31-2013 11:15-0400 Respiratory Rate 20 /min Mirella Mccracken [facility] Internal Medicine Work Phone: Comment on above: Pattern: Unlabored 03-31-2013 11:15-0400 Weight 74.02 kg Mirella Mccracken [facility] Internal Medicine Work Phone: 02-28-2013 09:53-0400 BMI (Body Mass Index) 32.57 kg/m2 Mirella Mccracken [facility] Internal Medicine Work Phone: 02-28-2013 09:53-0400 Body Temperature 98.3 [degF] Mirella Mccracken [facility] Internal Medicine Work Phone: Comment on above: Method: Oral 02-28-2013 09:53-0400 Body weight 73.14 kg Mirella Mccracken [facility] Internal Medicine Work Phone: 02-28-2013 09:53-0400 BP Diastolic 62 mm[Hg] Mirella Mccracken [facility] Internal Medicine Work Phone: Comment on above: Patient Position: Sitting; Cuff Location : Left Arm; Cuff Size: Large 02-28-2013 09:53-0400 BP Systolic 120 mm[Hg] Mirella Mccracken [facility] Internal Medicine Work Phone: Comment on above: Patient Position: Sitting; Cuff Location : Left Arm; Cuff Size: Large 02-28-2013 09:53-0400 BSA (Body Surface Area) 1.68 m2 Mirella Mccracken [facility] Internal Medicine Work Phone: 02-28-2013 09:53-0400 Height 149.86 cm Mirella Mccracken [facility] Internal Medicine Work Phone: 02-28-2013 09:53-0400 Pulse (Heart Rate) 60 /min Mirella Mccracken [facility] Internal Medicine Work Phone: Comment on above: Pattern: Regular 02-28-2013 09:53-0400 Respiratory Rate 18 /min Mirella Mccracken [facility] Internal Medicine Work Phone: Comment on above: Pattern: Unlabored 02-28-2013 09:53-0400 Weight 73.14 kg Mirella Mccracken [facility] Internal Medicine Work Phone: 11-15-2012 14:01-0500 BMI (Body Mass Index) 32.57 kg/m2 Mirella Mccracken [facility] Internal Medicine Work Phone: 11-15-2012 14:01-0500 Body Temperature 97.9 [degF] Mirella Mccracken [facility] Internal Medicine Work Phone: Comment on above: Method: Oral 11-15-2012 14:01-0500 Body weight 73.14 kg Mirella Mccracken [facility] Internal Medicine Work Phone: 11-15-2012 14:01-0500 BP Diastolic 78 mm[Hg] Mirella Mccracken [facility] Internal Medicine Work Phone: Comment on above: Patient Position: Sitting; Cuff Location : Left Arm; Cuff Size: Large 11-15-2012 14:01-0500 BP Systolic 122 mm[Hg] Mirella Mccracken [facility] Internal Medicine Work Phone: Comment on above: Patient Position: Sitting; Cuff Location : Left Arm; Cuff Size: Large 11-15-2012 14:01-0500 BSA (Body Surface Area) 1.68 m2 Mirella Mccracken [facility] Internal Medicine Work Phone: 11-15-2012 14:01-0500 Height 149.86 cm Mirella Mccracken [facility] Internal Medicine Work Phone: 11-15-2012 14:01-0500 Pulse (Heart Rate) 72 /min Mirella Mccracken [facility] Internal Medicine Work Phone: Comment on above: Pattern: Regular 11-15-2012 14:01-0500 Respiratory Rate 20 /min Mirella Mccracken [facility] Internal Medicine Work Phone: Comment on above: Pattern: Unlabored 11-15-2012 14:01-0500 Weight 73.14 kg Mirella Mccracken [facility] Internal Medicine Work Phone: 10-25-2012 11:26-0500 BMI (Body Mass Index) 32.74 kg/m2 Mirella Mccracken [facility] Internal Medicine Work Phone: 10-25-2012 11:26-0500 Body Temperature 98.3 [degF] Mirella Mccracken [facility] Internal Medicine Work Phone: Comment on above: Method: Oral 10-25-2012 11:26-0500 Body weight 73.54 kg Mirella Mccracken [facility] Internal Medicine Work Phone: 10-25-2012 11:26-0500 BP Diastolic 62 mm[Hg] Mirella Mccracken [facility] Internal Medicine Work Phone: Comment on above: Patient Position: Sitting; Cuff Location : Right Arm; Cuff Size: Large 10-25-2012 11:26-0500 BP Systolic 144 mm[Hg] Mirella Mccracken [facility] Internal Medicine Work Phone: Comment on above: Patient Position: Sitting; Cuff Location : Right Arm; Cuff Size: Large 10-25-2012 11:26-0500 BSA (Body Surface Area) 1.69 m2 Mirella Mccracken [facility] Internal Medicine Work Phone: 10-25-2012 11:26-0500 Height 149.86 cm Mirella Mccracken [facility] Internal Medicine Work Phone: 10-25-2012 11:26-0500 Pulse (Heart Rate) 72 /min Mirella Mccracken [facility] Internal Medicine Work Phone: Comment on above: Pattern: Regular 10-25-2012 11:26-0500 Respiratory Rate 20 /min Mirella Mccracken [facility] Internal Medicine Work Phone: Comment on above: Pattern: Unlabored 10-25-2012 11:26-0500 Weight 73.54 kg Mirella Mccracken [facility] Internal Medicine Work Phone: 10-21-2012 09:46-0500 BMI (Body Mass Index) 32.74 kg/m2 [facility] Work Phone: 10-21-2012 09:46-0500 Body Temperature 97.6 [degF] Mirella Mccracken [facility] Internal Medicine Work Phone: Comment on above: Method: Oral 10-21-2012 09:46-0500 Body weight 73.54 kg Mirella Mccracken [facility] Internal Medicine Work Phone: 10-21-2012 09:46-0500 BP Diastolic 62 mm[Hg] Mirella Mccracken [facility] Internal Medicine Work Phone: Comment on above: Patient Position: Sitting; Cuff Location : Left Arm; Cuff Size: Large 10-21-2012 09:46-0500 BP Systolic 120 mm[Hg] Mirella Mccracken [facility] Internal Medicine Work Phone: Comment on above: Patient Position: Sitting; Cuff Location : Left Arm; Cuff Size: Large 10-21-2012 09:46-0500 BSA (Body Surface Area) 1.69 m2 Mirella Mccracken [facility] Internal Medicine Work Phone: 10-21-2012 09:46-0500 Height 149.86 cm Mirella Mccracken [facility] Internal Medicine Work Phone: 10-21-2012 09:46-0500 Pulse (Heart Rate) 64 /min Mirella Mccracken [facility] Internal Medicine Work Phone: Comment on above: Pattern: Regular 10-21-2012 09:46-0500 Respiratory Rate 20 /min Mirella Mccracken [facility] Internal Medicine Work Phone: Comment on above: Pattern: Unlabored 10-21-2012 09:46-0500 Weight 73.54 kg Mirella Mccracken [facility] Internal Medicine Work Phone: 09-30-2012 09:48-0500 BMI (Body Mass Index) 32.74 kg/m2 Mirella Solano [facility] Internal Medicine Work Phone: 09-30-2012 09:48-0500 Body Temperature 98.2 [degF] Mirella Mccracken [facility] Internal Medicine Work Phone: Comment on above: Method: Oral 09-30-2012 09:48-0500 Body weight 73.54 kg Mirella Mccracken [facility] Internal Medicine Work Phone: 09-30-2012 09:48-0500 BP Diastolic 76 mm[Hg] Mirella Mccracken [facility] Internal Medicine Work Phone: Comment on above: Patient Position: Sitting; Cuff Location : Left Arm; Cuff Size: Standard 09-30-2012 09:48-0500 BP Systolic 122 mm[Hg] Mirella Mccracken [facility] Internal Medicine Work Phone: Comment on above: Patient Position: Sitting; Cuff Location : Left Arm; Cuff Size: Standard 09-30-2012 09:48-0500 BSA (Body Surface Area) 1.69 m2 Mirella Mccracken [facility] Internal Medicine Work Phone: 09-30-2012 09:48-0500 Height 149.86 cm Mirella Mccracken [facility] Internal Medicine Work Phone: 09-30-2012 09:48-0500 Pulse (Heart Rate) 58 /min Mirella Mccracken [facility] Internal Medicine Work Phone: Comment on above: Pattern: Regular 09-30-2012 09:48-0500 Pulse Oximetry 98 % Mirella Mccracken [facility] Internal Medicine Work Phone: Comment on above: Room air 09-30-2012 09:48-0500 Respiratory Rate 16 /min Mirella Mccracken [facility] Internal Medicine Work Phone: Comment on above: Pattern: Unlabored 09-30-2012 09:48-0500 Weight 73.54 kg Mirella Mccracken [facility] Internal Medicine Work Phone: 09-16-2012 09:47-0500 BMI (Body Mass Index) 32.74 kg/m2 Mirella Mccracken [facility] Internal Medicine Work Phone: 09-16-2012 09:47-0500 Body Temperature 97 [degF] Mirella Mccracken [facility] Internal Medicine Work Phone: Comment on above: Method: Oral 09-16-2012 09:47-0500 Body weight 73.54 kg Mirella Mccracken [facility] Internal Medicine Work Phone: 09-16-2012 09:47-0500 BP Diastolic 76 mm[Hg] Mirella Mccracken [facility] Internal Medicine Work Phone: Comment on above: Patient Position: Sitting; Cuff Location : Left Arm; Cuff Size: Large 09-16-2012 09:47-0500 BP Systolic 128 mm[Hg] Mirella Mccracken [facility] Internal Medicine Work Phone: Comment on above: Patient Position: Sitting; Cuff Location : Left Arm; Cuff Size: Large 09-16-2012 09:47-0500 BSA (Body Surface Area) 1.69 m2 Mirella Mccracken [facility] Internal Medicine Work Phone: 09-16-2012 09:47-0500 Height 149.86 cm Mirella Mccracken [facility] Internal Medicine Work Phone: 09-16-2012 09:47-0500 Pulse (Heart Rate) 72 /min Mirella Mccracken [facility] Internal Medicine Work Phone: Comment on above: Pattern: Regular 09-16-2012 09:47-0500 Respiratory Rate 18 /min Mirella Mccracken [facility] Internal Medicine Work Phone: Comment on above: Pattern: Unlabored 09-16-2012 09:47-0500 Weight 73.54 kg Mirella Mccracken [facility] Internal Medicine Work Phone: 05-27-2012 09:32-0400 Body Temperature 96.9 [degF] Hung Davison [facility] Work Phone: 03-11-2012 13:42-0400 BMI (Body Mass Index) 28.88 kg/m2 Mirella Mccracken [facility] Internal Medicine Work Phone: 03-11-2012 13:42-0400 Body Temperature 97.8 [degF] Mirella Mccracken [facility] Internal Medicine Work Phone: 03-11-2012 13:42-0400 Body weight 64.86 kg Mirella Mccracken [facility] Internal Medicine Work Phone: 03-11-2012 13:42-0400 BP Diastolic 70 mm[Hg] Mirella Mccracken [facility] Internal Medicine Work Phone: Comment on above: Patient Position: Sitting; Cuff Location : Left Arm; Cuff Size: Large 03-11-2012 13:42-0400 BP Systolic 124 mm[Hg] Mirella Mccracken [facility] Internal Medicine Work Phone: Comment on above: Patient Position: Sitting; Cuff Location : Left Arm; Cuff Size: Large 03-11-2012 13:42-0400 BSA (Body Surface Area) 1.6 m2 Mirella Mccracken [facility] Internal Medicine Work Phone: 03-11-2012 13:42-0400 Height 149.86 cm Mirella Mccracken [facility] Internal Medicine Work Phone: 03-11-2012 13:42-0400 Pulse (Heart Rate) 56 /min Mirella Mccracken [facility] Internal Medicine Work Phone: Comment on above: Pattern: Regular 03-11-2012 13:42-0400 Respiratory Rate 18 /min Mirella Mccracken [facility] Internal Medicine Work Phone: Comment on above: Pattern: Unlabored 03-11-2012 13:42-0400 Weight 64.86 kg Mirella Mccracken [facility] Internal Medicine Work Phone: 03-04-2012 12:12-0400 BMI (Body Mass Index) 28.96 kg/m2 Mirella Mccracken [facility] Internal Medicine Work Phone: 03-04-2012 12:12-0400 Body weight 65.03 kg Mirella Mccracken [facility] Internal Medicine Work Phone: 03-04-2012 12:12-0400 BP Diastolic 62 mm[Hg] Mirella Mccracken [facility] Internal Medicine Work Phone: Comment on above: Patient Position: Sitting; Cuff Location : Left Arm; Cuff Size: Large 03-04-2012 12:12-0400 BP Systolic 122 mm[Hg] Mirella Mccracken [facility] Internal Medicine Work Phone: Comment on above: Patient Position: Sitting; Cuff Location : Left Arm; Cuff Size: Large 03-04-2012 12:12-0400 BSA (Body Surface Area) 1.6 m2 Mirella Mccracken [facility] Internal Medicine Work Phone: 03-04-2012 12:12-0400 Height 149.86 cm Mirella Mccracken [facility] Internal Medicine Work Phone: 03-04-2012 12:12-0400 Pulse (Heart Rate) 60 /min Mirella Mccracken [facility] Internal Medicine Work Phone: Comment on above: Pattern: Regular 03-04-2012 12:12-0400 Respiratory Rate 20 /min Mirella Mccracken [facility] Internal Medicine Work Phone: Comment on above: Pattern: Unlabored 03-04-2012 12:12-0400 Weight 65.03 kg Mirella Mccracken [facility] Internal Medicine Work Phone: 02-25-2012 13:29-0400 BMI (Body Mass Index) 28.96 kg/m2 Mirella Mccracken [facility] Internal Medicine Work Phone: 02-25-2012 13:29-0400 Body weight 65.03 kg Mirella Mccracken [facility] Internal Medicine Work Phone: 02-25-2012 13:29-0400 BP Diastolic 76 mm[Hg] Mirella Mccracken [facility] Internal Medicine Work Phone: Comment on above: Patient Position: Sitting; Cuff Location : Left Arm; Cuff Size: Standard 02-25-2012 13:29-0400 BP Systolic 120 mm[Hg] Mirella Mccracken [facility] Internal Medicine Work Phone: Comment on above: Patient Position: Sitting; Cuff Location : Left Arm; Cuff Size: Standard 02-25-2012 13:290400 BSA (Body Surface Area) 1.6 m2 Mirella Mccracken [facility] Internal Medicine Work Phone: 02-25-2012 13:29-0400 Height 149.86 cm [facility] Work Phone: 02-25-2012 13:29-0400 Pulse (Heart Rate) 68 /min Mirella Mccracken [facility] Internal Medicine Work Phone: Comment on above: Pattern: Regular 02-25-2012 13:29-0400 Respiratory Rate 20 /min Mirella Mccracken [facility] Internal Medicine Work Phone: Comment on above: Pattern: Unlabored 02-25-2012 13:29-0400 Weight 65.03 kg Mirella Mccracken [facility] Internal Medicine Work Phone: 01-30-2012 08:19-0400 BMI (Body Mass Index) 28.96 kg/m2 Mirella Mccracken [facility] Internal Medicine Work Phone: 01-30-2012 08:19-0400 Body weight 65.03 kg Mirella Mccracken [facility] Internal Medicine Work Phone: 01-30-2012 08:19-0400 BP Diastolic 70 mm[Hg] Mirella Mccracken [facility] Internal Medicine Work Phone: Comment on above: Patient Position: Sitting; Cuff Location : Left Arm; Cuff Size: Large 01-30-2012 08:19-0400 BP Systolic 120 mm[Hg] Mirella Mccracken [facility] Internal Medicine Work Phone: Comment on above: Patient Position: Sitting; Cuff Location : Left Arm; Cuff Size: Large 01-30-2012 08:19-0400 BSA (Body Surface Area) 1.6 m2 Mirella Mccracken [facility] Internal Medicine Work Phone: 01-30-2012 08:19-0400 Height 149.86 cm Mirella Mccracken [facility] Internal Medicine Work Phone: 01-30-2012 08:19-0400 Pulse (Heart Rate) 60 /min Mirella Mccracken [facility] Internal Medicine Work Phone: Comment on above: Pattern: Regular 01-30-2012 08:19-0400 Respiratory Rate 18 /min Mirella Mccracken [facility] Internal Medicine Work Phone: Comment on above: Pattern: Unlabored 01-30-2012 08:19-0400 Weight 65.03 kg Mirella Mccracken [facility] Internal Medicine Work Phone: 01-15-2012 12:06-0400 BMI (Body Mass Index) 28.96 kg/m2 Mirella Mccracken [facility] Internal Medicine Work Phone: Comment on above: vison with correction ou=20/50 os=20/50 od=20/50hearing [facility] 01-15-2012 12:06-0400 Body Temperature 97 [degF] Mirella Mccracken [facility] Internal Medicine Work Phone: Comment on above: Method: Oral vison with correctio n ou=20/50 os=20/50 od=20/50hearing [facility] 01-15-2012 12:06-0400 Body weight 65.03 kg Mirella Mccracken [facility] Internal Medicine Work Phone: Comment on above: vison with correction ou=20/50 os=20/50 od=20/50hearing [facility] 01-15-2012 12:06-0400 BP Diastolic 60 mm[Hg] [facility] Work Phone: Comment on above: Patient Position: Sitting; Cuff Location : Left Arm; Cuff Size: Large vison with correctio n ou=20/50 os=20/50 od=20/50hearing [facility] 01-15-2012 12:06-0400 BP Systolic 118 mm[Hg] [facility] Work Phone: Comment on above: Patient Position: Sitting; Cuff Location : Left Arm; Cuff Size: Large vison with correctio n ou=20/50 os=20/50 od=20/50hearing [facility] 01-15-2012 12:06-0400 BSA (Body Surface Area) 1.6 m2 [facility] Work Phone: Comment on above: vison with correction ou=20/50 os=20/50 od=20/50hearing [facility] 01-15-2012 12:06-0400 Height 149.86 cm [facility] Work Phone: Comment on above: vison with correction ou=20/50 os=20/50 od=20/50hearing [facility] 01-15-2012 12:06-0400 Pulse (Heart Rate) 68 /min Mirella [facility] Internal Medicine Work Phone: Comment on above: Pattern: Regular vison with correctio n ou=20/50 os=20/50 od=20/50hearing [facility] 01-15-2012 12:06-0400 Respiratory Rate 20 /min [facility] Internal Medicine Work Phone: Comment on above: Pattern: Unlabored vison with correctio n ou=20/50 os=20/50 od=20/50hearing [facility] 01-15-2012 12:06-0400 Weight 65.03 kg Mirella [facility] Internal Medicine Work Phone: Comment on above: vison with correction ou=20/50 os=20/50 od=20/50hearing [facility] 12-31-2011 15:05-0400 BMI (Body Mass Index) 28.88 kg/m2 Mirellazac Mccracken [facility] Internal Medicine Work Phone: 12-31-2011 15:05-0400 Body weight 64.86 kg [facility] Internal Medicine Work Phone: 12-31-2011 15:05-0400 BP Diastolic 78 mm[Hg] [facility] Internal Medicine Work Phone: Comment on above: Patient Position: Sitting; Cuff Location : Left Arm; Cuff Size: Large 12-31-2011 15:05-0400 BP Systolic 122 mm[Hg] [facility] Internal Medicine Work Phone: Comment on above: Patient Position: Sitting; Cuff Location : Left Arm; Cuff Size: Large 12-31-2011 15:05-0400 BSA (Body Surface Area) 1.6 m2 [facility] Internal Medicine Work Phone: 12-31-2011 15:05-0400 Height 149.86 cm [facility] Internal Medicine Work Phone: 12-31-2011 15:05-0400 Pulse (Heart Rate) 60 /min Mirella Mccracken [facility] Internal Medicine Work Phone: Comment on above: Pattern: Regular 12-31-2011 15:05-0400 Respiratory Rate 18 /min Mirella Mccracken [facility] Internal Medicine Work Phone: Comment on above: Pattern: Unlabored 12-31-2011 15:05-0400 Weight 64.86 kg Mirella Mccracken [facility] Internal Medicine Work Phone: 12-26-2011 14:17-0400 BP Diastolic 62 mm[Hg] Mirella Mccracken [facility] Internal Medicine Work Phone: Comment on above: Patient Position: Sitting; Cuff Location : Left Arm; Cuff Size: Standard 12-26-2011 14:17-0400 BP Systolic 122 mm[Hg] Mirella Mccracken [facility] Internal Medicine Work Phone: Comment on above: Patient Position: Sitting; Cuff Location : Left Arm; Cuff Size: Standard 12-26-2011 14:17-0400 Pulse (Heart Rate) 58 /min Mirella Mccracken [facility] Internal Medicine Work Phone: Comment on above: Pattern: Regular 12-26-2011 14:17-0400 Pulse Oximetry 98 % Mirella Mccracken [facility] Internal Medicine Work Phone: Comment on above: Room air 12-26-2011 13:59-0400 Pulse (Heart Rate) 48 /min Mirella Mccracken [facility] Internal Medicine Work Phone: Comment on above: Pattern: Regular 12-26-2011 13:59-0400 Pulse Oximetry 95 % Mirella Mccracken [facility] Internal Medicine Work Phone: Comment on above: Room air 12-26-2011 13:13-0400 BMI (Body Mass Index) 29.49 kg/m2 Mirella Mccracken [facility] Internal Medicine Work Phone: 12-26-2011 13:13-0400 Body Temperature 97.8 [degF] Mirella Mccracken [facility] Internal Medicine Work Phone: Comment on above: Method: Oral 12-26-2011 13:13-0400 Body weight 66.23 kg Mirella Mccracken [facility] Internal Medicine Work Phone: 12-26-2011 13:13-0400 BP Diastolic 68 mm[Hg] Mirella Mccracken [facility] Internal Medicine Work Phone: Comment on above: Patient Position: Sitting; Cuff Location : Left Arm; Cuff Size: Standard 12-26-2011 13:13-0400 BP Systolic 114 mm[Hg] Mirella Mccracken [facility] Internal Medicine Work Phone: Comment on above: Patient Position: Sitting; Cuff Location : Left Arm; Cuff Size: Standard 12-26-2011 13:13-0400 BSA (Body Surface Area) 1.61 m2 Mirella Mccracken [facility] Internal Medicine Work Phone: 12-26-2011 13:13-0400 Height 149.86 cm Mirella Mccracken [facility] Internal Medicine Work Phone: 12-26-2011 13:13-0400 Pulse (Heart Rate) 54 /min Mirella Mccracken [facility] Internal Medicine Work Phone: Comment on above: Pattern: Regular 12-26-2011 13:13-0400 Pulse Oximetry 98 % Mirella Mccracken [facility] Internal Medicine Work Phone: Comment on above: Room air 12-26-2011 13:13-0400 Respiratory Rate 20 /min Mirella Mccracken [facility] Internal Medicine Work Phone: Comment on above: Pattern: Unlabored 12-26-2011 13:13-0400 Weight 66.23 kg Mirella Mccracken [facility] Internal Medicine Work Phone: 12-24-2011 14:07-0400 BMI (Body Mass Index) 29.5 kg/m2 Mirella Mccracken [facility] Internal Medicine Work Phone: 12-24-2011 14:07-0400 Body weight 66.25 kg Mirella Mccracken [facility] Internal Medicine Work Phone: 12-24-2011 14:07-0400 BP Diastolic 60 mm[Hg] Mirella Mccracken [facility] Internal Medicine Work Phone: Comment on above: Patient Position: Sitting; Cuff Location : Left Arm; Cuff Size: Large 12-24-2011 14:07-0400 BP Systolic 124 mm[Hg] Mirella Mccracken [facility] Internal Medicine Work Phone: Comment on above: Patient Position: Sitting; Cuff Location : Left Arm; Cuff Size: Large 12-24-2011 14:07-0400 BSA (Body Surface Area) 1.61 m2 Mirella Mccracken [facility] Internal Medicine Work Phone: 12-24-2011 14:07-0400 Height 149.86 cm Mirella Mccracken [facility] Internal Medicine Work Phone: 12-24-2011 14:07-0400 Pulse (Heart Rate) 60 /min Mirella Mccracken [facility] Internal Medicine Work Phone: Comment on above: Pattern: Regular 12-24-2011 14:07-0400 Respiratory Rate 18 /min Mirella Mccracken [facility] Internal Medicine Work Phone: Comment on above: Pattern: Unlabored 12-24-2011 14:07-0400 Weight 66.25 kg Mirella Mccracken [facility] Internal Medicine Work Phone: 12-15-2011 09:30-0400 BMI (Body Mass Index) 29.31 kg/m2 Mirella Mccracken [facility] Internal Medicine Work Phone: 12-15-2011 09:30-0400 Body Temperature 97.9 [degF] Mirella Mccracken [facility] Internal Medicine Work Phone: Comment on above: Method: Oral 12-15-2011 09:30-0400 Body weight 65.83 kg Mirella Mccracken [facility] Internal Medicine Work Phone: 12-15-2011 09:30-0400 BP Diastolic 60 mm[Hg] Mirella Mccracken [facility] Internal Medicine Work Phone: Comment on above: Patient Position: Sitting; Cuff Location : Left Arm; Cuff Size: Large 12-15-2011 09:30-0400 BP Systolic 104 mm[Hg] Mirella Mccracken [facility] Internal Medicine Work Phone: Comment on above: Patient Position: Sitting; Cuff Location : Left Arm; Cuff Size: Large 12-15-2011 09:30-0400 BSA (Body Surface Area) 1.61 m2 Mirella Mccracken [facility] Internal Medicine Work Phone: 12-15-2011 09:30-0400 Height 149.86 cm Mirella Mccracken [facility] Internal Medicine Work Phone: 12-15-2011 09:30-0400 Pulse (Heart Rate) 60 /min Mirella Mccracken [facility] Internal Medicine Work Phone: Comment on above: Pattern: Regular 12-15-2011 09:30-0400 Respiratory Rate 18 /min Mirella Mccracken [facility] Internal Medicine Work Phone: Comment on above: Pattern: Unlabored 12-15-2011 09:30-0400 Weight 65.83 kg Mirella Mccracken [facility] Internal Medicine Work Phone: 11-26-2011 11:36-0400 BMI (Body Mass Index) 29.69 kg/m2 Mirella Mccracken [facility] Internal Medicine Work Phone: 11-26-2011 11:36-0400 Body Temperature 95.6 [degF] Mirella Mccracken [facility] Internal Medicine Work Phone: Comment on above: Method: Oral 11-26-2011 11:36-0400 Body weight 66.68 kg Mirella Mccracken [facility] Internal Medicine Work Phone: 11-26-2011 11:36-0400 BP Diastolic 62 mm[Hg] [facility] Work Phone: Comment on above: Patient Position: Sitting; Cuff Location : Left Arm; Cuff Size: Large 11-26-2011 11:36-0400 BP Systolic 118 mm[Hg] Mirella Mccracken [facility] Internal Medicine Work Phone: Comment on above: Patient Position: Sitting; Cuff Location : Left Arm; Cuff Size: Large 11-26-2011 11:36-0400 BSA (Body Surface Area) 1.62 m2 Mirella Mccracken [facility] Internal Medicine Work Phone: 11-26-2011 11:36-0400 Height 149.86 cm [facility] Work Phone: 11-26-2011 11:36-0400 Pulse (Heart Rate) 64 /min Mirella Mccracken [facility] Internal Medicine Work Phone: Comment on above: Pattern: Regular 11-26-2011 11:36-0400 Respiratory Rate 20 /min Mirella Mccracken [facility] Internal Medicine Work Phone: Comment on above: Pattern: Unlabored 11-26-2011 11:36-0400 Weight 66.68 kg Mirella Mccracken [facility] Internal Medicine Work Phone: 11-12-2011 12:55-0500 BMI (Body Mass Index) 30.51 kg/m2 Mirella Mccracken [facility] Internal Medicine Work Phone: 11-12-2011 12:55-0500 Body weight 68.52 kg Mirella Mccracken [facility] Internal Medicine Work Phone: 11-12-2011 12:55-0500 BP Diastolic 60 mm[Hg] Mirella Mccracken [facility] Internal Medicine Work Phone: Comment on above: Patient Position: Sitting; Cuff Location : Left Arm; Cuff Size: Large 11-12-2011 12:55-0500 BP Systolic 112 mm[Hg] Mirella Mccracken [facility] Internal Medicine Work Phone: Comment on above: Patient Position: Sitting; Cuff Location : Left Arm; Cuff Size: Large 11-12-2011 12:55-0500 BSA (Body Surface Area) 1.64 m2 Mirella Mccracken [facility] Internal Medicine Work Phone: 11-12-2011 12:55-0500 Height 149.86 cm Mirella Mccracken [facility] Internal Medicine Work Phone: 11-12-2011 12:55-0500 Pulse (Heart Rate) 68 /min iMrella Mccracken [facility] Internal Medicine Work Phone: Comment on above: Pattern: Regular 11-12-2011 12:55-0500 Respiratory Rate 20 /min Mirella Mccracken [facility] Internal Medicine Work Phone: Comment on above: Pattern: Unlabored 11-12-2011 12:55-0500 Weight 68.52 kg Mirella Mccracken [facility] Internal Medicine Work Phone: 11-06-2011 12:18-0500 BMI (Body Mass Index) 30.09 kg/m2 Mirella Mccracken [facility] Internal Medicine Work Phone: 11-06-2011 12:18-0500 Body Temperature 98.1 [degF] Mirella Mccracken [facility] Internal Medicine Work Phone: Comment on above: Method: Oral 11-06-2011 12:18-0500 Body weight 67.59 kg Mirella Mccracken [facility] Internal Medicine Work Phone: 11-06-2011 12:18-0500 BP Diastolic 70 mm[Hg] Mirella Mccracken [facility] Internal Medicine Work Phone: Comment on above: Patient Position: Sitting; Cuff Location : Left Arm; Cuff Size: Large 11-06-2011 12:18-0500 BP Systolic 134 mm[Hg] Mirella Mccracken [facility] Internal Medicine Work Phone: Comment on above: Patient Position: Sitting; Cuff Location : Left Arm; Cuff Size: Large 11-06-2011 12:18-0500 BSA (Body Surface Area) 1.63 m2 Mirella Mccracken [facility] Internal Medicine Work Phone: 11-06-2011 12:18-0500 Height 149.86 cm Mirella Mccracken [facility] Internal Medicine Work Phone: 11-06-2011 12:18-0500 Pulse (Heart Rate) 68 /min Mirella Mccracken [facility] Internal Medicine Work Phone: Comment on above: Pattern: Regular 11-06-2011 12:18-0500 Respiratory Rate 20 /min Mirella Mccracken [facility] Internal Medicine Work Phone: Comment on above: Pattern: Unlabored 11-06-2011 12:18-0500 Weight 67.59 kg Mirella Mccracken [facility] Internal Medicine Work Phone: 10-21-2011 13:27-0500 Body Temperature 97.9 [degF] Mirella Mccracken [facility] Internal Medicine Work Phone: 10-21-2011 13:27-0500 Body weight 67.54 kg Mirella Mccracken [facility] Internal Medicine Work Phone: 10-21-2011 13:27-0500 BP Diastolic 92 mm[Hg] Mirella Mccracken [facility] Internal Medicine Work Phone: Comment on above: Patient Position: Sitting; Cuff Location : Left Arm; Cuff Size: Standard 10-21-2011 13:27-0500 BP Systolic 152 mm[Hg] Mirella Mccracken [facility] Internal Medicine Work Phone: Comment on above: Patient Position: Sitting; Cuff Location : Left Arm; Cuff Size: Standard 10-21-2011 13:27-0500 Pulse (Heart Rate) 99 /min Mirella Mccracken [facility] Internal Medicine Work Phone: Comment on above: Pattern: Regular 10-21-2011 13:27-0500 Pulse Oximetry 92 % Mirella Mccracken [facility] Internal Medicine Work Phone: Comment on above: Room air 10-21-2011 13:27-0500 Respiratory Rate 17 /min Mirella Mccracken [facility] Internal Medicine Work Phone: Comment on above: Pattern: Unlabored 10-21-2011 13:27-0500 Weight 67.54 kg Mirella Mccracken [facility] Internal Medicine Work Phone: 06-05-2011 09:34-0400 BMI (Body Mass Index) 30.14 kg/m2 Mirella Mccracken [facility] Internal Medicine Work Phone: 06-05-2011 09:34-0400 Body Temperature 98.5 [degF] Mirella Mccracken [facility] Internal Medicine Work Phone: Comment on above: Method: Oral 06-05-2011 09:34-0400 Body weight 67.7 kg Mirella Mccracken [facility] Internal Medicine Work Phone: 06-05-2011 09:34-0400 BP Diastolic 78 mm[Hg] Mirella Mccracken [facility] Internal Medicine Work Phone: Comment on above: Patient Position: Sitting; Cuff Location : Left Arm; Cuff Size: Large 06-05-2011 09:34-0400 BP Systolic 142 mm[Hg] Mirella Mccracken [facility] Internal Medicine Work Phone: Comment on above: Patient Position: Sitting; Cuff Location : Left Arm; Cuff Size: Large 06-05-2011 09:34-0400 BSA (Body Surface Area) 1.63 m2 Mirella Mccracken [facility] Internal Medicine Work Phone: 06-05-2011 09:34-0400 Height 149.86 cm Mirella Mccracken [facility] Internal Medicine Work Phone: 06-05-2011 09:34-0400 Pulse (Heart Rate) 76 /min Mirella Mccracken [facility] Internal Medicine Work Phone: Comment on above: Pattern: Regular 06-05-2011 09:34-0400 Respiratory Rate 20 /min Mirella Mccracken [facility] Internal Medicine Work Phone: Comment on above: Pattern: Unlabored 06-05-2011 09:34-0400 Weight 67.7 kg Mirella [facility] Internal Medicine Work Phone: 05-08-2011 08:10-0400 BMI (Body Mass Index) 28.19 kg/m2 Mirella Mccracken [facility] Internal Medicine Work Phone: 05-08-2011 08:10-0400 Body Temperature 98.7 [degF] Mirella Mccracken [facility] Internal Medicine Work Phone: Comment on above: Method: Oral 05-08-2011 08:10-0400 Body weight 63.31 kg Mirella Mccracken [facility] Internal Medicine Work Phone: 05-08-2011 08:10-0400 BP Diastolic 78 mm[Hg] Mirella Mccracken [facility] Internal Medicine Work Phone: Comment on above: Patient Position: Sitting; Cuff Location : Left Arm; Cuff Size: Standard 05-08-2011 08:10-0400 BP Systolic 142 mm[Hg] Mirella Mccracken [facility] Internal Medicine Work Phone: Comment on above: Patient Position: Sitting; Cuff Location : Left Arm; Cuff Size: Standard 05-08-2011 08:10-0400 BSA (Body Surface Area) 1.58 m2 Mirella Mccracken [facility] Internal Medicine Work Phone: 05-08-2011 08:10-0400 Height 149.86 cm Mirella Mccracken [facility] Internal Medicine Work Phone: 05-08-2011 08:10-0400 Pulse (Heart Rate) 84 /min Mirella Mccracken [facility] Internal Medicine Work Phone: Comment on above: Pattern: Regular 05-08-2011 08:10-0400 Respiratory Rate 17 /min Mirella Mccracken [facility] Internal Medicine Work Phone: 05-08-2011 08:10-0400 Weight 63.31 kg Mirella Mccracken [facility] Internal Medicine Work Phone: 05-07-2011 08:42-0400 BMI (Body Mass Index) 28.19 kg/m2 Mirella Mccracken [facility] Internal Medicine Work Phone: 05-07-2011 08:42-0400 Body Temperature 98 [degF] Mirella Mccracken [facility] Internal Medicine Work Phone: Comment on above: Method: Oral 05-07-2011 08:42-0400 Body weight 63.31 kg Mirella Mccracken [facility] Internal Medicine Work Phone: 05-07-2011 08:42-0400 BP Diastolic 72 mm[Hg] Mirella Mccracken [facility] Internal Medicine Work Phone: Comment on above: Patient Position: Sitting; Cuff Location : Left Arm; Cuff Size: Standard 05-07-2011 08:42-0400 BP Systolic 132 mm[Hg] Mirella Mccracken [facility] Internal Medicine Work Phone: Comment on above: Patient Position: Sitting; Cuff Location : Left Arm; Cuff Size: Standard 05-07-2011 08:42-0400 BSA (Body Surface Area) 1.58 m2 Mirella Mccracken [facility] Internal Medicine Work Phone: 05-07-2011 08:42-0400 Height 149.86 cm Mirella Mccracken [facility] Internal Medicine Work Phone: 05-07-2011 08:42-0400 Pulse (Heart Rate) 82 /min Mirella Mccracken [facility] Internal Medicine Work Phone: Comment on above: Pattern: Regular 05-07-2011 08:42-0400 Respiratory Rate 18 /min Mirella M[facility]racken [facility] Internal Medicine Work Phone: Comment on above: Pattern: Unlabored 05-07-2011 08:42-0400 Weight 63.31 kg Mirella Mccracken [facility] Internal Medicine Work Phone: 05-06-2011 16:25-0400 BP Diastolic 82 mm[Hg] Mirella Mccracken [facility] Internal Medicine Work Phone: Comment on above: Patient Position: Supine; Cuff Location: Right Arm; Cuff Size: Standard 05-06-2011 16:25-0400 BP Systolic 146 mm[Hg] Mirella M[facility]racken [facility] Internal Medicine Work Phone: Comment on above: Patient Position: Supine; Cuff Location: Right Arm; Cuff Size: Standard 05-06-2011 16:25-0400 Pulse (Heart Rate) 76 /min Mirella Mccracken [facility] Internal Medicine Work Phone: Comment on above: Pattern: Regular 11-06-2010 12:10-0500 BMI (Body Mass Index) 28.19 kg/m2 Mirella Mccracken [facility] Internal Medicine Work Phone: 11-06-2010 12:10-0500 Body Temperature 97.3 [degF] Mirella M[facility]racken [facility] Internal Medicine Work Phone: Comment on above: Method: Oral 11-06-2010 12:10-0500 Body weight 63.31 kg Mirella M[facility]racken [facility] Internal Medicine Work Phone: 11-06-2010 12:10-0500 BP Diastolic 82 mm[Hg] Mirella M[facility]racken [facility] Internal Medicine Work Phone: Comment on above: Patient Position: Sitting; Cuff Location : Left Arm; Cuff Size: Standard 11-06-2010 12:10-0500 BP Systolic 144 mm[Hg] Mirella Mccracken [facility] Internal Medicine Work Phone: Comment on above: Patient Position: Sitting; Cuff Location : Left Arm; Cuff Size: Standard 11-06-2010 12:10-0500 BSA (Body Surface Area) 1.58 m2 Mirella Mccracken [facility] Internal Medicine Work Phone: 11-06-2010 12:10-0500 Height 149.86 cm Mirella Mccracken [facility] Internal Medicine Work Phone: 11-06-2010 12:10-0500 Pulse (Heart Rate) 76 /min [facility] Work Phone: Comment on above: Pattern: Regular 11-06-2010 12:10-0500 Respiratory Rate 18 /min Mirella Mccracken [facility] Internal Medicine Work Phone: Comment on above: Pattern: Unlabored 11-06-2010 12:10-0500 Weight 63.31 kg Mirella Mccracken [facility] Internal Medicine Work Phone: 11-04-2010 09:00-0500 BMI (Body Mass Index) 28.19 kg/m2 Mirella Mccracken [facility] Internal Medicine Work Phone: 11-04-2010 09:00-0500 Body weight 63.31 kg Mirella Mccracken [facility] Internal Medicine Work Phone: 11-04-2010 09:00-0500 BP Diastolic 72 mm[Hg] [facility] Work Phone: Comment on above: Patient Position: Sitting; Cuff Location : Left Arm; Cuff Size: Standard 11-04-2010 09:00-0500 BP Systolic 122 mm[Hg] [facility] Internal [facility] Work Phone: Comment on above: Patient Position: Sitting; Cuff Location : Left Arm; Cuff Size: Standard 11-04-2010 09:00-0500 BSA (Body Surface Area) 1.58 m2 Mirella Mccracken [facility] Internal Medicine Work Phone: 11-04-2010 09:00-0500 Height 149.86 cm Mirella Mccracken [facility] Internal Medicine Work Phone: 11-04-2010 09:00-0500 Pulse (Heart Rate) 62 /min [facility] Internal [facility] Work Phone: Comment on above: Pattern: Regular 11-04-2010 09:00-0500 Respiratory Rate 16 /min Mirella M[facility]racken [facility] Internal Medicine Work Phone: Comment on above: Pattern: Unlabored 11-04-2010 09:00-0500 Weight 63.31 kg Mirella Mccracken [facility] Internal Medicine Work Phone: 10-14-2010 09:31-0500 BMI (Body Mass Index) 28.19 kg/m2 Mirella Mccracken [facility] Internal Medicine Work Phone: 10-14-2010 09:31-0500 Body weight 63.31 kg Mirella Mccracken [facility] Internal Medicine Work Phone: 10-14-2010 09:31-0500 BP Diastolic 70 mm[Hg] Mirella Mccracken [facility] Internal Medicine Work Phone: Comment on above: Patient Position: Sitting; Cuff Location : Left Arm; Cuff Size: Large 10-14-2010 09:31-0500 BP Systolic 132 mm[Hg] Mirella Mccracken [facility] Internal Medicine Work Phone: Comment on above: Patient Position: Sitting; Cuff Location : Left Arm; Cuff Size: Large 10-14-2010 09:31-0500 BSA (Body Surface Area) 1.58 m2 Mirella Mccracken [facility] Internal Medicine Work Phone: 10-14-2010 09:31-0500 Height 149.86 cm Mirella Mccracken [facility] Internal Medicine Work Phone: 10-14-2010 09:31-0500 Pulse (Heart Rate) 72 /min Mirella Mccracken [facility] Internal Medicine Work Phone: Comment on above: Pattern: Regular 10-14-2010 09:31-0500 Respiratory Rate 20 /min Mirella Mccracken [facility] Internal Medicine Work Phone: Comment on above: Pattern: Unlabored 10-14-2010 09:31-0500 Weight 63.31 kg Mirella Mccracken [facility] Internal Medicine Work Phone: 07-17-2010 08:52-0400 BMI (Body Mass Index) 29.73 kg/m2 Mirella [facility] Internal Medicine Work Phone: 07-17-2010 08:52-0400 Body weight 66.76 kg Mirella Mccracken [facility] Internal Medicine Work Phone: 07-17-2010 08:52-0400 BP Diastolic 78 mm[Hg] Mirella Mccracken [facility] Internal Medicine Work Phone: Comment on above: Patient Position: Sitting; Cuff Location : Left Arm; Cuff Size: Large 07-17-2010 08:52-0400 BP Systolic 138 mm[Hg] Mirella Mccracken [facility] Internal Medicine Work Phone: Comment on above: Patient Position: Sitting; Cuff Location : Left Arm; Cuff Size: Large 07-17-2010 08:52-0400 BSA (Body Surface Area) 1.62 m2 Mirella Mccracken [facility] Internal Medicine Work Phone: 07-17-2010 08:52-0400 Height 149.86 cm Mirella Mccracken [facility] Internal Medicine Work Phone: 07-17-2010 08:52-0400 Pulse (Heart Rate) 60 /min Mirella Mccracken [facility] Internal Medicine Work Phone: Comment on above: Pattern: Regular 07-17-2010 08:52-0400 Respiratory Rate 20 /min Mirella Mccracken [facility] Internal Medicine Work Phone: Comment on above: Pattern: Unlabored 07-17-2010 08:52-0400 Weight 66.76 kg Mirella Mccracken [facility] Internal Medicine Work Phone: 06-17-2010 10:04-0400 BMI (Body Mass Index) 29.6 kg/m2 Mirella [facility] Internal Medicine Work Phone: 06-17-2010 10:04-0400 Body weight 66.48 kg Mirella Mccracken [facility] Internal Medicine Work Phone: 06-17-2010 10:04-0400 BP Diastolic 70 mm[Hg] Mirella Mccracken [facility] Internal Medicine Work Phone: Comment on above: Patient Position: Sitting; Cuff Location : Left Arm; Cuff Size: Large 06-17-2010 10:04-0400 BP Systolic 122 mm[Hg] Mirella [facility] Medicine Work Phone: Comment on above: Patient Position: Sitting; Cuff Location : Left Arm; Cuff Size: Large 06-17-2010 10:04-0400 BSA (Body Surface Area) 1.62 m2 Mirella [facility] Internal Medicine Work Phone: 06-17-2010 10:04-0400 Height 149.86 cm Mirella [facility] Internal Medicine Work Phone: 06-17-2010 10:04-0400 Pulse (Heart Rate) 68 /min Mirella [facility] Internal Medicine Work Phone: Comment on above: Pattern: Regular 06-17-2010 10:04-0400 Respiratory Rate 20 /min Mirella [facility] Internal Medicine Work Phone: Comment on above: Pattern: Unlabored 06-17-2010 10:04-0400 Weight 66.48 kg Mirella [facility] Internal Medicine Work Phone: 01-25-2010 13:25-0400 Body weight 66.91 kg Mirella [facility] Internal Medicine Work Phone: 01-25-2010 13:25-0400 BP Diastolic 76 mm[Hg] Mirella [facility] Internal Medicine Work [...] 13:25-0400 Respiratory Rate 18 /min Mirella [facility] Internal Medicine Work Phone: Comment on above: Pattern: Unlabored 01-25-2010 13:25-0400 Weight 66.91 kg Mirella Mccracken [facility] Internal Medicine Work Phone: 12-13-2009 11:12-0400 BMI (Body Mass Index) 29.32 kg/m2 [facility] Internal [facility] Work Phone: 12-13-2009 11:12-0400 Body weight 65.86 kg Mirella Mccracken [facility] Internal Medicine Work Phone: 12-13-2009 11:12-0400 BP Diastolic 78 mm[Hg] Mirella [facility] Internal Medicine Work Phone: Comment on above: Patient Position: Sitting; Cuff Location : Left Arm; Cuff Size: Large 12-13-2009 11:12-0400 BP Systolic 118 mm[Hg] Mirella Mccracken [facility] Internal Medicine Work Phone: Comment on above: Patient Position: Sitting; Cuff Location : Left Arm; Cuff Size: Large 12-13-2009 11:12-0400 BSA (Body Surface Area) 1.61 m2 Mirella Mccracken [facility] Internal Medicine Work Phone: 12-13-2009 11:12-0400 Height 149.86 cm Mirella Mccracken [facility] Internal Medicine Work Phone: 12-13-2009 11:12-0400 Pulse (Heart Rate) 64 /min Mirella Mccracken [facility] Internal Medicine Work Phone: Comment on above: Pattern: Regular 12-13-2009 11:12-0400 Respiratory Rate 20 /min Mirella Mccracken [facility] Internal Medicine Work Phone: Comment on above: Pattern: Unlabored 12-13-2009 11:12-0400 Weight 65.86 kg Mirella Mccracken [facility] Internal Medicine Work Phone: 10-03-2009 11:50-0500 BMI (Body Mass Index) 27.37 kg/m2 [facility] Internal [facility] Work Phone: 10-03-2009 11:50-0500 Body weight 61.46 kg Mirella Mccracken [facility] Internal Medicine Work Phone: 10-03-2009 11:50-0500 BP Diastolic 78 mm[Hg] Mirella Mccracken [facility] Internal Medicine Work Phone: Comment on above: Patient Position: Sitting; Cuff Location : Left Arm; Cuff Size: Large 10-03-2009 11:50-0500 BP Systolic 120 mm[Hg] Mirella Mccracken [facility] Internal Medicine Work Phone: Comment on above: Patient Position: Sitting; Cuff Location : Left Arm; Cuff Size: Large 10-03-2009 11:50-0500 BSA (Body Surface Area) 1.56 m2 Mirella Mccracken [facility] Internal Medicine Work Phone: 10-03-2009 11:50-0500 Height 149.86 cm Mirella Mccracken [facility] Internal Medicine Work Phone: 10-03-2009 11:50-0500 Pulse (Heart Rate) 64 /min Mirella Mccracken [facility] Internal Medicine Work Phone: Comment on above: Pattern: Regular 10-03-2009 11:50-0500 Respiratory Rate 20 /min Mirella Mccracken [facility] Internal Medicine Work Phone: Comment on above: Pattern: Unlabored 10-03-2009 11:50-0500 Weight 61.46 kg Mirella Mccracken [facility] Internal Medicine Work Phone: 01-17-2009 07:54-0400 BMI (Body Mass Index) 27.37 kg/m2 Mirella Mccracken [facility] Internal Medicine Work Phone: 01-17-2009 07:54-0400 Body weight 61.46 kg Mirella Mccracken [facility] Internal Medicine Work Phone: 01-17-2009 07:54-0400 BP Diastolic 60 mm[Hg] Mirella Mccracken [facility] Internal Medicine Work Phone: Comment on above: Patient Position: Sitting; Cuff Location : Left Arm; Cuff Size: Large 01-17-2009 07:54-0400 BP Systolic 112 mm[Hg] Mirella Mccracken [facility] Internal Medicine Work Phone: Comment on above: Patient Position: Sitting; Cuff Location : Left Arm; Cuff Size: Large 01-17-2009 07:54-0400 BSA (Body Surface Area) 1.56 m2 Mirella Mccracken [facility] Internal Medicine Work Phone: 01-17-2009 07:54-0400 Head Circumference 0 cm Mirella Mccracken [facility] Internal Medicine Work Phone: 01-17-2009 07:54-0400 Height 149.86 cm Mirella Mccracken [facility] Internal Medicine Work Phone: 01-17-2009 07:54-0400 Pulse (Heart Rate) 64 /min Mirella Mccracken [facility] Internal Medicine Work Phone: Comment on above: Pattern: Regular 01-17-2009 07:54-0400 Respiratory Rate 20 /min Mirella Mccracken [facility] Internal Medicine Work Phone: Comment on above: Pattern: Unlabored 01-17-2009 07:54-0400 Weight 61.46 kg Mirella Mccracken [facility] Internal Medicine Work Phone: 01-12-2009 07:52-0400 BMI (Body Mass Index) 27.37 kg/m2 Mirella Mccracken [facility] Internal Medicine Work Phone: 01-12-2009 07:52-0400 Body weight 61.46 kg Mirella Mccracken [facility] Internal Medicine Work Phone: 01-12-2009 07:52-0400 BP Diastolic 78 mm[Hg] Mirella Mccracken [facility] Internal Medicine Work Phone: Comment on above: Patient Position: Sitting; Cuff Location : Left Arm; Cuff Size: Large 01-12-2009 07:52-0400 BP Systolic 122 mm[Hg] Mirella Mccracken [facility] Internal Medicine Work Phone: Comment on above: Patient Position: Sitting; Cuff Location : Left Arm; Cuff Size: Large 01-12-2009 07:52-0400 BSA (Body Surface Area) 1.56 m2 Mirella Mccracken [facility] Internal Medicine Work Phone: 01-12-2009 07:52-0400 Head Circumference 0 cm Mirella Mccracken [facility] Internal Medicine Work Phone: 01-12-2009 07:52-0400 Height 149.86 cm Mirella Mccracken [facility] Internal Medicine Work Phone: 01-12-2009 07:52-0400 Pulse (Heart Rate) 72 /min Mirella Mccracken [facility] Internal Medicine Work Phone: Comment on above: Pattern: Regular 01-12-2009 07:52-0400 Respiratory Rate 18 /min Mirella Mccracken [facility] Internal Medicine Work Phone: Comment on above: Pattern: Unlabored 01-12-2009 07:52-0400 Weight 61.46 kg Mirella Mccracken [facility] Internal Medicine Work Phone: 01-02-2009 09:31-0400 BMI (Body Mass Index) 27.37 kg/m2 Mirella Mccracken [facility] Internal Medicine Work Phone: 01-02-2009 09:31-0400 Body weight 61.46 kg Mirella Mccracken [facility] Internal Medicine Work Phone: 01-02-2009 09:31-0400 BP Diastolic 78 mm[Hg] Mirella Mccracken [facility] Internal Medicine Work Phone: Comment on above: Patient Position: Sitting; Cuff Location : Left Arm; Cuff Size: Large 01-02-2009 09:31-0400 BP Systolic 138 mm[Hg] [facility] Internal [facility] Work Phone: Comment on above: Patient Position: Sitting; Cuff Location : Left Arm; Cuff Size: Large 01-02-2009 09:31-0400 BSA (Body Surface Area) 1.56 m2 Mirella Mccracken [facility] Internal Medicine Work Phone: 01-02-2009 09:31-0400 Head Circumference 0 cm Mirella Mccracken [facility] Internal Medicine Work Phone: 01-02-2009 09:31-0400 Height 149.86 cm Mirella Mccracken [facility] Internal Medicine Work Phone: 01-02-2009 09:31-0400 Pulse (Heart Rate) 72 /min Mirella Mccracken [facility] Internal Medicine Work Phone: Comment on above: Pattern: Regular 01-02-2009 09:31-0400 Respiratory Rate 20 /min Mirella Mccracken [facility] Internal Medicine Work Phone: Comment on above: Pattern: Unlabored 01-02-2009 09:31-0400 Weight 61.46 kg Mirella Mccracken [facility] Internal Medicine Work Phone: 12-07-2008 09:40-0400 BMI (Body Mass Index) 27.28 kg/m2 Mirella Mccracken [facility] Internal Medicine Work Phone: Comment on above: vision with correction OD= 20/50 OS=20/5 0 OU=20/50 12-07-2008 09:40-0400 Body weight 61.26 kg Mirella Mccracken [facility] Internal Medicine Work Phone: Comment on above: vision with correction OD= 20/50 OS=20/5 0 OU=20/50 12-07-2008 09:40-0400 BP Diastolic 78 mm[Hg] Mirella [facility] Internal Medicine Work Phone: Comment on above: Patient Position: Sitting; Cuff Location : Left Arm; Cuff Size: Large vision with correcti on OD= 20/50 OS=20/50 OU=20/50 12-07-2008 09:40-0400 BP Systolic 122 mm[Hg] [facility] Internal Medicine Work Phone: Comment on above: Patient Position: Sitting; Cuff Location : Left Arm; Cuff Size: Large vision with correcti on OD= 20/50 OS=20/50 OU=20/50 12-07-2008 09:40-0400 BSA (Body Surface Area) 1.56 m2 [facility] Internal Medicine Work Phone: Comment on above: vision with correction OD= 20/50 OS=20/5 0 OU=20/50 12-07-2008 09:40-0400 Head Circumference 0 cm [facility]ll[facility]atha [facility] Internal Medicine Work Phone: Comment on above: vision with correction OD= 20/50 OS=20/5 0 OU=20/50 12-07-2008 09:40-0400 Height 149.86 cm Mirella [facility] Internal Medicine Work Phone: Comment on above: vision with correction OD= 20/50 OS=20/5 0 OU=20/50 12-07-2008 09:40-0400 Pulse (Heart Rate) 72 /min Mirella [facility] Internal Medicine Work Phone: Comment on above: Pattern: Regular vision with correcti on OD= 20/50 OS=20/50 OU=20/50 12-07-2008 09:40-0400 Respiratory Rate 20 /min Mirella [facility] Internal Medicine Work Phone: Comment on above: Pattern: Unlabored vision with correcti on OD= 20/50 OS=20/50 OU=20/50 12-07-2008 09:40-0400 Weight 61.26 kg Mirella [facility] Internal Medicine Work Phone: Comment on above: vision with correction OD= 20/50 OS=20/5 0 OU=20/50 10-04-2008 09:20-0500 BMI (Body Mass Index) 26.31 kg/m2 Mirellazac Mccracken [facility] Internal Medicine Work Phone: 10-04-2008 09:20-0500 Body weight 59.08 kg Mirella [facility] Internal Medicine Work Phone: 10-04-2008 09:20-0500 BP Diastolic 76 mm[Hg] [facility] Internal Medicine Work Phone: Comment on above: Patient Position: Sitting; Cuff Location : Left Arm; Cuff Size: Large 10-04-2008 09:20-0500 BP Systolic 124 mm[Hg] [facility] Internal Medicine Work Phone: Comment on above: Patient Position: Sitting; Cuff Location : Left Arm; Cuff Size: Large 10-04-2008 09:20-0500 BSA (Body Surface Area) 1.54 m2 Mirella [facility] Internal Medicine Work Phone: 10-04-2008 09:20-0500 Head Circumference 0 cm [facility] Internal Medicine Work Phone: 10-04-2008 09:20-0500 Height 149.86 cm Mirella Mccracken [facility] Internal Medicine Work Phone: 10-04-2008 09:20-0500 Pulse (Heart Rate) 72 /min Mirella Mccracken [facility] Internal Medicine Work Phone: Comment on above: Pattern: Regular 10-04-2008 09:20-0500 Respiratory Rate 20 /min Mirella Mccracken [facility] Internal Medicine Work Phone: Comment on above: Pattern: Unlabored 10-04-2008 09:20-0500 Weight 59.08 kg Mirella Mccracken [facility] Internal Medicine Work Phone: 09-21-2008 14:19-0500 BMI (Body Mass Index) 26.9 kg/m2 Mirella Mccracken [facility] Internal Medicine Work Phone: 09-21-2008 14:19-0500 Body weight 60.41 kg Mirella Mccracken [facility] Internal Medicine Work Phone: 09-21-2008 14:19-0500 BP Diastolic 80 mm[Hg] Mirella Mccracken [facility] Internal Medicine Work Phone: Comment on above: Patient Position: Sitting; Cuff Location : Left Arm; Cuff Size: Standard 09-21-2008 14:19-0500 BP Systolic 142 mm[Hg] Mirella Mccracken [facility] Internal Medicine Work Phone: Comment on above: Patient Position: Sitting; Cuff Location : Left Arm; Cuff Size: Standard 09-21-2008 14:19-0500 BSA (Body Surface Area) 1.55 m2 Mirella Mccracken [facility] Internal Medicine Work Phone: 09-21-2008 14:19-0500 Head Circumference 0 cm Mirella Mccracken [facility] Internal Medicine Work Phone: 09-21-2008 14:19-0500 Height 149.86 cm Mirella Mccracken [facility] Internal Medicine Work Phone: 09-21-2008 14:19-0500 Pulse (Heart Rate) 64 /min [facility] Internal [facility] Work Phone: Comment on above: Pattern: Regular 09-21-2008 14:19-0500 Respiratory Rate 20 /min Mirella Mccracken [facility] Internal Medicine Work Phone: Comment on above: Pattern: Unlabored 09-21-2008 14:19-0500 Weight 60.41 kg Mirella Mccracken [facility] Internal Medicine Work Phone: 08-24-2008 13:56-0500 BMI (Body Mass Index) 26.9 kg/m2 Mirella Mccracken [facility] Internal Medicine Work Phone: 08-24-2008 13:56-0500 Body weight 60.41 kg Mirella Mccracken [facility] Internal Medicine Work Phone: 08-24-2008 13:56-0500 BP Diastolic 88 mm[Hg] Mirella Mccracken [facility] Internal Medicine Work Phone: Comment on above: Patient Position: Sitting; Cuff Location : Left Arm; Cuff Size: Standard 08-24-2008 13:56-0500 BP Systolic 142 mm[Hg] Mirella Mccracken [facility] Internal Medicine Work Phone: Comment on above: Patient Position: Sitting; Cuff Location : Left Arm; Cuff Size: Standard 08-24-2008 13:56-0500 BSA (Body Surface Area) 1.55 m2 Mirella Mccracken [facility] Internal Medicine Work Phone: 08-24-2008 13:56-0500 Head Circumference 0 cm Mirella Mccracken [facility] Internal Medicine Work Phone: 08-24-2008 13:56-0500 Height 149.86 cm Mirella Mccracken [facility] Internal Medicine Work Phone: 08-24-2008 13:56-0500 Pulse (Heart Rate) 80 /min Mirella Mccracken [facility] Internal Medicine Work Phone: Comment on above: Pattern: Regular 08-24-2008 13:56-0500 Respiratory Rate 20 /min Mirella Mccracken [facility] Internal Medicine Work Phone: Comment on above: Pattern: Unlabored 08-24-2008 13:56-0500 Weight 60.41 kg Mirella Mccracken [facility] Internal Medicine Work Phone: 06-28-2008 14:04-0400 BMI (Body Mass Index) 26.93 kg/m2 Mirella Mccracken [facility] Internal Medicine Work Phone: 06-28-2008 14:04-0400 Body weight 60.47 kg Mirella Mccracken [facility] Internal Medicine Work Phone: 06-28-2008 14:04-0400 BP Diastolic 78 mm[Hg] Mirella Mccracken [facility] Internal Medicine Work Phone: Comment on above: Patient Position: Sitting; Cuff Location : Left Arm; Cuff Size: Standard 06-28-2008 14:04-0400 BP Systolic 140 mm[Hg] Mirella Mccracken [facility] Internal Medicine Work Phone: Comment on above: Patient Position: Sitting; Cuff Location : Left Arm; Cuff Size: Standard 06-28-2008 14:04-0400 BSA (Body Surface Area) 1.55 m2 Mirella Mccracken [facility] Internal Medicine Work Phone: 06-28-2008 14:04-0400 Head Circumference 0 cm Mirella Mccracken [facility] Internal Medicine Work Phone: 06-28-2008 14:04-0400 Height 149.86 cm Mirella Mccracken [facility] Internal Medicine Work Phone: 06-28-2008 14:04-0400 Pulse (Heart Rate) 68 /min Mirella Mccracken [facility] Internal Medicine Work Phone: Comment on above: Pattern: Regular 06-28-2008 14:04-0400 Respiratory Rate 16 /min Mirella Mccracken [facility] Internal Medicine Work Phone: Comment on above: Pattern: Unlabored 06-28-2008 14:04-0400 Weight 60.47 kg Mirella Mccracken [facility] Internal Medicine Work Phone: Encounters Encounter Date Encounter Type Care Provider Facility Start: 07-12-2025 ambulatory [facility] Christianne [facility] Fa cility:[facility] Start: 06-28-2025 End: 06-28-2025 Emergency department patient visit Yesika Faust Facility:[facility] Start: 06-19-2025 Registered Referred Yesika Dolan Start: 06-19-2025 End: 06-19-2025 ambulatory Yesika Faust OLS Facility:[facility] Start: 06-03-2025 ambulatory Jenamacarena Butterfieldandreea OLS Fa cility:[facility] Start: 06-03-2025 Registered Referred Yesika Dolan Start: 05-22-2025 ambulatory Yesika Faust OLS Fa cility:[facility] Start: 05-22-2025 Registered Referred Yesika Dolan Start: 05-16-2025 Registered Referred Yesika Dolan Start: 05-16-2025 End: 05-16-2025 ambulatory Yesika VICENTE Facility:[facility] Start: 04-20-2025 End: 04-20-[address] Yesika Faust MD Work Phone: [facility] [place] Start: 04-20-2025 End: 04-20-2025 Patient encounter procedure Miguel YATES -[facility] Work Phone: Start: 04-14-2025 Registered Referred Yesika Dolan Start: 04-14-2025 End: 04-14-2025 ambulatory Jeddenae Butterfieldkathieaida VICENTE Facility:[facility] Start: 03-20-2025 End: 03-20-[address] Yesika Faust MD Work Phone: [facility] [place] Start: 03-20-2025 End: 03-20-2025 Patient encounter procedure Zeina MEEK -[facility] Work Phone: Start: 03-14-2025 End: 03-14-[address] Yesika Faust MD Work Phone: [facility] [place] Start: 03-14-2025 End: 03-14-[address] Yesika Faust MD -[facility] Work Phone: Start: 03-14-2025 Registered Referred Yesika Dolan Start: 03-14-2025 End: 03-14-2025 ambulatory Jeddenae VICENTE Facility:[facility] Start: 03-06-2025 Registered Referred Yesika Dolan Start: 03-06-2025 End: 03-06-[address] Yesika Faust MD Work Phone: [facility] [facility] [place] Start: 03-06-2025 End: 03-06-2025 Patient encounter procedure Zeina MEEK [facility] [place] Work Phone: Start: 02-27-2025 Registered Referred Yesika Dolan Start: 02-27-2025 End: 02-27-2025 ambulatory Jeddenae VICENTE Facility:[facility] Start: 02-23-2025 End: 02-23-[address] Yesika Faust MD Work Phone: [facility] [place] [facility] [place] Start: 02-23-2025 End: 02-23-2025 Patient encounter procedure Miguel YATES [facility] [place] Work Phone: Start: 02-13-2025 ambulatory Yesika VICENTE Fa cility:[facility] Start: 02-13-2025 Registered Referred Yesika Dolan Start: 01-31-2025 End: 01-31-[address] Yesika Faust MD Work Phone: [facility] [place] Start: 01-31-2025 End: 01-31-[address] Yesika Faust MD -[facility] Work Phone: Start: 01-23-2025 Registered Referred Zeina Dolan Start: 01-23-2025 End: 01-23-2025 ambulatory Yesika Faust Facility:[facility] Start: 01-18-2025 End: 01-18-2025 Departed Referred Yesika Dolan Start: 01-18-2025 Registered Referred Yesika Dolan Start: 01-18-2025 End: 01-18-2025 ambulatory Yesika VICENTE Facility:[facility] Start: 01-14-2025 End: 01-14-[address] Yesika Faust MD Work Phone: [facility] Work Phone: Start: 01-14-2025 End: 01-14-2025 Departed Referred Yesika Dolan Start: 01-14-2025 End: 01-14-2025 ambulatory Yesika VICENTE Facility:[facility] Start: 01-12-2025 End: 01-12-[address] Yesika Faust MD Work Phone: [facility] Work Phone: Start: 01-12-2025 End: 01-12-2025 Departed Referred Yesika Dolan Start: 01-12-2025 Registered Referred Yesika Dolan Start: 01-12-2025 End: 01-12-2025 ambulatory Yesika VICENTE Facility:[facility] Start: 12-16-2024 End: 12-16-[address] Yesika Faust MD Work Phone: [facility] Work Phone: Start: 12-16-2024 End: 12-16-2024 Patient encounter procedure Zeina Balbuena CORK WIRER- -[facility] Work Phone: Start: 12-14-2024 End: 12-14-[address] Yesika Faust MD Work Phone: [facility] Work Phone: Start: 12-14-2024 End: 12-14-2024 [facility] Start: 12-14-2024 [facility] Start: 12-14-2024 End: 12-14-2024 ambulatory Efewongbe Oleghe OLS Facility:[facility] Start: 11-15-2024 End: 11-15-2024 ambulatory Efewongbe Oleghe Facility:[facility] Start: 11-15-2024 End: 11-15-[address] Yesika Faust MD -[facility] Work Phone: Start: 11-14-2024 End: 11-14-[address] Yesika Faust MD Work Phone: [facility] Work Phone: Start: 11-14-2024 End: 11-14-2024 [facility] [place] Start: 11-14-2024 End: 11-14-2024 ambulatory Efewongbe Sammye OLS Facility:[facility] Start: 10-27-2024 End: 10-27-2024 ambulatory Efewongbe Olekathiee Facility:[facility] Start: 10-27-2024 End: 10-27-2024 Patient encounter procedure Miguel YATES -[facility] Work Phone: Start: 10-17-2024 ambulatory Efewongbe Oleghe OLS Fa cility:[facility] Start: 10-17-2024 [facility] [place] Start: 10-14-2024 ambulatory Efewongbe Oleghe OLS Fa cility:[facility] Start: 10-14-2024 [facility] [place] Start: 09-20-2024 End: 09-20-2024 ambulatory Efewongbe Oleghe Facility:[facility] Start: 09-20-2024 End: 09-20-[address] Yesika Faust MD -[facility] Work Phone: Start: 09-16-2024 ambulatory Tadenriquetadenae VICENTE Fa cility:[facility] Start: 09-16-2024 Registered Referred Yesika Faust MD [facility] Start: 08-16-2024 End: 08-16-2024 [facility] Start: 08-16-2024 End: 08-16-2024 ambulatory Tadenriquetadenae VICENTE Facility:[facility] Start: 08-09-2024 End: 08-09-2024 ambulatory Yesika Faust Facility:[facility] Start: 08-04-2024 End: 08-04-2024 ambulatory Yesika Christiansonaida Facility:[facility] Start: 08-04-2024 End: 08-04-2024 ambulatory Yesika Faust OLS Facility:[facility] Start: 08-02-2024 End: 08-02-2024 ambulatory Yesika Christiansonaida VICENTE Facility:[facility] Start: 07-28-2024 End: 07-28-2024 ambulatory Zeina [facility] Facility:[facility] Start: 12-22-2023 End: 12-22-[address] Cl Tsang Work Phone: [facility] Work Phone: Start: 11-30-2023 End: 11-30-[address] Cl Tsang Work Phone: [facility] Work Phone: Start: 11-17-2023 End: 11-17-[address] Cl Tsang Work Phone: [facility] Work Phone: Start: 11-17-2023 End: 11-17-[address] Cl Tsang Work Phone: [facility] Start: 10-20-2023 End: 10-20-[address] Cl Tsang Work Phone: [facility] Work Phone: Start: 10-08-2023 End: 10-08-[address] Cl Tsang Work Phone: [facility] Work Phone: Start: 08-25-2023 End: 08-25-[address] Cl Tsang Work Phone: [facility] Work Phone: Start: 08-18-2023 End: 08-18-[address] Cl Tsang Work Phone: [facility] Work Phone: Start: 08-18-2023 End: 08-18-[address] Cl Tsang Work Phone: [facility] Start: 06-30-2023 End: 06-30-[address] Cl Tsang Work Phone: [facility] Work Phone: Start: 06-08-2023 End: 06-08-[address] Cl Tsang Work Phone: [facility] Work Phone: Start: 06-04-2023 End: 06-04-[address] Cl Tsang Work Phone: [facility] Work Phone: Start: 05-28-2023 End: 05-28-[address] Cl Tsang Work Phone: [facility] Work Phone: Start: 05-21-2023 End: 05-21-[address] Cl Tsang Work Phone: [facility] Work Phone: Start: 05-19-2023 End: 05-19-[address] Cl Tsang Work Phone: [facility] Start: 05-13-2023 End: 05-13-[address] Cl Tsang Work Phone: [facility] Work Phone: Start: 04-09-2023 End: 04-09-[address] Cl Tsang Work Phone: [facility] Work Phone: Start: 04-07-2023 End: 04-07-[address] Cl Tsang Work Phone: [facility] Work Phone: Start: 02-17-2023 End: 02-17-[address] Cl Tsang Work Phone: [facility] Work Phone: Start: 02-17-2023 End: 02-17-[address] Cl Tsang Work Phone: [facility] Work Phone: Start: 02-17-2023 End: 02-17-[address] Cl Tsang Work Phone: [facility] Start: 02-10-2023 End: 02-10-[address] Cl Tsang Work Phone: [facility] Work Phone: Start: 01-12-2023 End: 01-12-[address] Cl Tsang Work Phone: [facility] Work Phone: Start: 01-12-2023 End: 01-12-[address] Cl Tsang Work Phone: [facility] Start: 12-29-2022 End: 12-29-[address] Cl Tsang Work Phone: [facility] Start: 12-23-2022 End: 12-23-[address] Cl Tsang Work Phone: [facility] Start: 12-05-2022 End: 12-05-[address] Cl Tsang Work Phone: [facility] Start: 11-18-2022 End: 11-18-[address] Cl Tsang Work Phone: [facility] Work Phone: Start: 11-18-2022 End: 11-18-[address] Cl Tsang Work Phone: [facility] Start: 10-28-2022 End: 10-28-[address] Cl Tsang Work Phone: [facility] Start: 10-17-2022 End: 10-17-[address] Cl Tsang Work Phone: [facility] Start: 10-08-2022 End: 10-08-[address] Cl Tsang Work Phone: [facility] Start: 09-01-2022 End: 09-01-[address] Cl Tsang Work Phone: [facility] Start: 08-19-2022 End: 08-19-[address] Cl Tsang Work Phone: [facility] Work Phone: Start: 08-19-2022 End: 08-19-[address] Cl Tsang Work Phone: [facility] Start: 07-29-2022 End: 07-29-[address] Cl Tsang Work Phone: [facility] Start: 05-29-2022 End: 05-30-[address] Cl Tsang Work Phone: [facility] Start: 05-20-2022 End: 05-20-[address] Cl Tsang Work Phone: [facility] Work Phone: Start: 05-20-2022 End: 05-20-[address] Cl Tsang Work Phone: [facility] Start: 04-18-2022 End: 04-18-[address] Cl Tsang Work Phone: [facility] Start: 03-07-[address] Cl herrera Work Phone: [facility] Start: 01-13-2022 End: 01-13-[address] Cl Tsang Work Phone: [facility] Start: 11-14-2021 End: 11-14-2021 Patient encounter procedure TRUDY YATES Work Phone: [facility] Start: 11-12-2021 End: 11-12-2021 Departed Referred TRUDY YATES Work Phone: [facility] Start: 09-30-2021 End: 09-30-2021 Patient encounter procedure TRUDY YATES Work Phone: [facility] Start: 05-05-2019 Review Mirella Mcrcacken [facility] Start: 05-05-2019 End: [...] Office outpatient visit 25 minutes Mirella Mccracken [facility] Internal Medicine Start: 05-07-2017 End: 05-07-2017 Office outpatient visit 25 minutes Mirella Sunshine Internal Medicine Start: 03-26-2017 End: 03-26-2017 Office outpatient visit 10 minutes Mirella Sunshine Internal Medicine Start: 12-25-2016 End: 12-25-2016 Office outpatient visit 25 minutes Mirella Sunshine Internal [facility] Start: 09-25-2016 End: 09-25-2016 Office outpatient visit 15 minutes Mirella Mccracken [facility] Internal Medicine Start: 09-16-2016 End: 09-17-2016 Office outpatient visit 5 minutes Mirella Sunshine Internal Medicine Start: 07-02-2016 End: 07-02-2016 Phone Encounter Mirella Sunshine [facility] Start: 07-01-2016 End: 07-01-2016 Office outpatient visit 5 minutes Mirella Sunshine Internal Medicine Start: 06-25-2016 End: 06-25-2016 Office outpatient visit 25 minutes Mirella Sunshine Internal Medicine Start: 05-21-2016 End: 05-21-2016 Office outpatient visit 10 minutes Mirella Susnhine Internal Medicine Start: 01-04-2016 End: 01-04-2016 Office [...] preventive med est patient 65yrs& older Mirella Mccracken [facility] Start: 08-13-2015 End: 08-13-2015 [...] Start: 05-23-2015 End: 05-23-2015 Annotation/Addendum Mirella Sunshine [facility] Start: 05-23-2015 End: 05-23-2015 Office outpatient visit 5 minutes Mirella [facility] Start: 05-16-2015 End: 05-16-2015 Office outpatient visit 5 minutes Mirella [facility] Start: 05-09-2015 End: 05-09-2015 Office outpatient visit 5 minutes Mirella [facility] Start: 04-26-2015 End: 04-26-2015 Phone Encounter Mirella Sunshine [facility] Start: 04-19-2015 End: 04-19-2015 Office [...] 09-11-2014 End: 09-11-2014 Phone Encounter Mirella Sunshine [facility] Start: 08-31-2014 End: 08-31-2014 Office [...] Office outpatient new 20 minutes Mirella Mccracken [facility] Start: 07-13-2014 End: 07-14-2014 Office outpatient visit 15 minutes Mirella Mccracken [facility] Start: 04-17-2014 End: 04-17-2014 Office outpatient visit 15 minutes Mirella Mccracken [facility] Start: 04-13-2014 End: 04-13-2014 Phone Encounter Mirella Sunshine [facility] Start: 04-06-2014 End: 04-06-2014 Patient encounter procedure Mirella Mccracken [facility] Start: 04-06-2014 End: 04-06-2014 Patient encounter procedure Mirella Mccracken [facility] Start: 12-30-2013 End: 12-30-2013 Patient encounter procedure Mirella Mccracken [facility] Start: 12-22-2013 End: 12-22-2013 Patient encounter procedure Mirella Mccracken [facility] Start: 12-01-2013 End: 12-01-2013 Phone Encounter Mirella Mccracken [facility] Start: 12-01-2013 End: 12-01-2013 Patient encounter procedure Mirella Mccracken [facility] Start: 09-23-2013 End: 09-23-2013 Patient encounter procedure Mirella Mccracken [facility] Start: 09-13-2013 End: 09-13-2013 Phone Encounter Mirella Mccracken [facility] Start: 08-01-2013 End: 08-01-2013 Patient encounter procedure Mirella Mccracken [facility] Start: 07-04-2013 End: 07-04-2013 Patient encounter procedure Mirella Mccracken [facility] Start: 06-27-2013 End: 06-27-2013 Patient encounter procedure Mirella Mccracken [facility] Start: 06-20-2013 End: 06-20-2013 Patient encounter procedure Mirella Mccracken [facility] Start: 06-08-2013 End: 06-08-2013 Patient encounter procedure Mirella Mccracken [facility] Start: 05-20-2013 End: 05-20-2013 Patient encounter procedure Mirella Mccracken [facility] Start: 04-22-2013 End: 04-22-2013 Patient encounter procedure Mirella Mccracken [facility] Start: 04-15-2013 End: 04-15-2013 Patient encounter procedure Mirella Mccracken [facility] Start: 03-31-2013 End: 03-31-2013 Patient encounter procedure Mirella Mccracken [facility] Start: 02-28-2013 End: 02-28-2013 Patient encounter procedure Mirella Mccracken [facility] Start: 11-15-2012 End: 11-15-2012 Patient encounter procedure Mirella Mccracken [facility] Start: 10-25-2012 End: 10-25-2012 Patient encounter procedure Mirella Mccracken [facility] Start: 10-21-2012 End: 10-21-2012 Patient encounter procedure Mirella Mccracken [facility] Start: 09-30-2012 End: 09-30-2012 Patient encounter procedure Mirella Mccracken [facility] Start: 09-30-2012 End: 09-30-2012 Phone Encounter Mirella Mccracken [facility] Start: 09-16-2012 End: 09-16-2012 Patient encounter procedure Mirellaleatha Mccracken [facility] Start: 05-27-2012 End: 05-28-2012 Nursing evaluation of patient and report Mirellaleatha Mccracken [facility] Start: 03-11-2012 End: 03-11-2012 Patient encounter procedure Mirella Mccracken [facility] Start: 03-04-2012 End: 03-05-2012 Patient encounter procedure Mirella Mccracken [facility] Start: 02-25-2012 End: 02-25-2012 Patient encounter procedure Mirella Mccracken [facility] Start: 02-05-2012 End: 02-05-2012 Phone Encounter Mirellaleatha Mccracken [facility] Start: 02-04-2012 End: 02-04-2012 Phone Encounter Mirellaleatha Mccracken [facility] Start: 01-30-2012 End: 01-30-2012 Patient encounter procedure Mirellaleatha Mccracken [facility] Start: 01-15-2012 End: 01-15-2012 Patient encounter procedure Mirellaleatha Mccracken [facility] Start: 12-31-2011 End: 12-31-2011 Patient encounter procedure Mirella Mccracken [facility] Start: 12-26-2011 End: 12-26-2011 Patient encounter procedure Mirella Nicole [facility] Start: 12-24-2011 End: 12-24-2011 Patient encounter procedure Mirella Mccracken [facility] Start: 12-15-2011 End: 12-15-2011 Patient encounter procedure Mirella Mccracken [facility] Start: 11-26-2011 End: 11-26-2011 Patient encounter procedure Mirellaleatha Mccracken [facility] Start: 11-12-2011 End: 11-12-2011 Patient encounter procedure Mirella Mccracken [facility] Start: 11-06-2011 End: 11-06-2011 Office outpatient visit 25 minutes Mirella Mccracken [facility] Start: 10-22-2011 End: 10-22-2011 Annotation/Addendum Mirella Nicole [facility] Start: 10-21-2011 End: 10-21-2011 Office outpatient visit 25 minutes Mirella Mccracken [facility] Start: 06-05-2011 End: 06-05-2011 Patient encounter procedure Mirella Nicole [facility] Start: 05-08-2011 End: 05-08-2011 Patient encounter procedure Mirellaleatha Searson [facility] Start: 05-07-2011 End: 05-07-2011 Office outpatient visit 15 minutes Mirella Mccracken [facility] Start: 05-06-2011 End: 05-06-2011 Office outpatient visit 15 minutes Mirella Mccracken [facility] Start: 11-06-2010 End: 11-06-2010 Office outpatient visit 15 minutes Mirella Mccracken [facility] Start: 11-04-2010 End: 11-04-2010 Office outpatient visit 15 minutes Mirella Mccracken [facility] Start: 10-14-2010 End: 10-14-2010 Patient encounter procedure Mirella Nicole [facility] Start: 07-17-2010 End: 07-17-2010 Patient encounter procedure Mirella Nicole [facility] Start: 06-17-2010 End: 06-17-2010 Patient encounter procedure Mirella Nicole [facility] Start: 01-25-2010 End: 01-25-2010 Patient encounter procedure Mirella Mccracken [facility] Internal [facility] Start: 12-13-2009 End: 12-13-2009 Patient encounter procedure [facility] Start: 10-03-2009 End: 10-03-2009 Office outpatient visit 10 minutes Mirella Mccrack[facility] Start: 06-13-2009 End: 06-13-2009 Patient encounter procedure Mirella Mccrack[facility] Start: 01-17-2009 End: 01-17-2009 Office outpatient visit 15 minutes Mirella Mccrack[facility] Start: 01-12-2009 End: 01-12-2009 Office outpatient visit 25 minutes Mirella Mccracken [facility] Start: 01-02-2009 End: 01-02-2009 Patient encounter procedure Mirella Mccrack[facility] Start: 12-07-2008 End: 12-07-2008 Patient encounter procedure Mirella Mccrack[facility] Start: 10-04-2008 End: 10-04-2008 Patient encounter procedure Mirella Mccracken [facility] Start: 09-21-2008 End: 09-21-2008 Office outpatient visit 25 minutes Mirella Mccracken [facility] Start: 08-24-2008 End: 08-24-2008 Patient encounter procedure Mirella Mccracken [facility] Start: 06-28-2008 End: 06-28-2008 Patient encounter procedure Mirella Mccracken [facility] Start: 06-28-2008 End: 06-28-2008 Patient encounter procedure Mirella Mccracken [facility] Start: 06-26-2008 End: 06-26-2008 Historical Summary Mirella Mccracken [facility] Medicine Procedures Date Procedure Procedure Detail Performing Clinician Start: 06-28-2025 Urnls dip stick/tablet reagent auto microscopy Dr. Yesika Faust MD Work Phone: Start: 06-03-[address] Yesika Faust MD Work Phone: Start: 06-03-2025 Urnls dip stick/tablet reagent auto microscopy Dr. Yesika Faust MD Work Phone: Start: 03-06-2025 Urnls dip stick/tablet reagent auto [...] 1 View (Portable) Comments: See Note; NOTES: [facility] [address] [place] [address] Chest 1 View (Portable) MR#: [id number] Acct: [id number] Name: RADHAAGUSTIN M Rep #: [id number] : 1940 F 79 From: Antoni Gaviria MD PCP: Mirella Mccracken DO Status: [facility] Study: Chest 1 View (Portable) Date of Exam: 05/27/19 Exam# [id number] Ordering Dr: Satish Gonzales MD STUDY: X-RAY [...] CC: Satish Gonzales MD; Mirella Mccracken DO Smearer: Signed Mirella Mccracken Start: 05-27-2019 End: 05-27-2019 Shoulder min 2 Views Comments: See Note; NOTES: [facility] [address] [place] [address] Shoulder min 2 Views MR#: [id number] Acct: [id number] Name: AGUSTIN GARCIA Clara Rep #: [id number] : 1940 F 79 From: Antoni Gaviria MD PCP: Mirella Mccracken DO Status: [facility] Study: Shoulder min 2 Views Date of Exam: 05/27/19 Exam# [id number] Ordering Dr: Aury Hyde MD STUDY: X-RAY [...] CC: Aury Hyde MD; Mirella Mccracken DO Smearer: Signed Mirella Mccracken Start: 05-27-2019 End: 05-27-2019 Operative Report Comments: See Note; NOTES: [facility] Medical Records Department [address] [place] [address] Operative Report 05/27/19 1615 MR#: [id number] Acct: [id number] Name: AGUSTIN GARCIA Rep #: [id number] : 1940 79 From: Uriel Francois MD PCP: Mirella Mccracken DO Status: REG SDC Y Location: [place] [address] Report of Operation Date of Procedure: 05/27/19 [...] back to the operating room at the smooth induction of MAC local she was placed in dorsolithotomy position went into the bladder with a 21 Albanian rigid cystourethroscope cannulated the left ureteral orifice [...] 05-27-2019 Discharge Instruction Comments: See Note; NOTES: [facility] Medical Records Department [address] [place] [address] Instructions for Home/Discharge Instructions 05/27/19 1614 MR#: [id number] Acct: [id number] Name: AGUSTIN GARCIA Rep #: [id number] : 1940 79 From: Uriel Francois MD PCP: Mirella Mccracken DO Status: REG [facility] Discharge Diet: Light diet - [...] or 2 Views Comments: See Note; NOTES: [facility] [address] [place] [address] Pelvis 1 or 2 Views MR#: [id number] Acct: [id number] Name: AGUSTIN GARCIA Rep #: [id number] : 1940 F 79 From: Antoni Gaviria MD PCP: Mirella Mccracken DO Status: REG SDC Study: Pelvis 1 or 2 Views Date of Exam: 05/27/19 Exam# [id number] Ordering Dr: Uriel Francois MD STUDY: X-RAY [...] CC: Uriel Francois MD; Mirella Mccracken DO Smearer: Signed Mirella Mccracken Start: 05-05-2019 End: 05-05-2019 Abdomen/Pelvis WITH Contrast Comments: See Note; NOTES: [facility] [address] [place] [address] Abdomen/Pelvis WITH Contrast MR#: [id number] Acct: [id number] Name: AGUSTIN GARCIA Rep #: [id number] : 1940 F 79 From: Zoran Reinoso MD PCP: Mirella Mccracken DO Status: REG CLI Study: Abdomen/Pelvis WITH Contrast Date of Exam: 05/05/19 Exam# [id number] Ordering Dr: Mirella Mccracken DO STUDY: CT [...] Service support , CC: Mirella Mccracken DO Smearer: Signed Mirella Mccracken Work Phone: Start: 03-18-2019 End: 03-18-2019 Pelvic (Non ) Comments: See Note; NOTES: [facility] [address] [place] [address] Pelvic (Non ) MR#: [id number] Acct: [id number] Name: AGUSTIN GARCIA Rep #: [id number] : 1940 F 78 From: Avi Fisher MD PCP: Mirella Mccracken DO Status: REG CLI Study: Pelvic (Non ) Date of Exam: 03/18/19 Exam# [id number] Ordering Dr: Mirella Mccracken DO STUDY: ULTRASOUND [...] Service support , CC: Mirella Mccracken DO Smearer: Signed Mirella Mccracken Work Phone: Start: 03-15-2019 End: 03-15-2019 Venous Duplex Lower Extremity Comments: See Note; NOTES: [facility] Services [address] [place] [address] Venous Duplex US, Unilateral 03/15/19 1340 MR#: [id number] Acct: [id number] Name: AGUSTIN GARCIA Rep #: [id number] : 1940 78 From: James Moctezuma MD [...] Physician: Mirella Mccracken Performed By: Dilshad Russo RVSinan 03/15/19 1423 Date James Moctezuma MD CC: Mirella Mccracken DO Date Dictated: 03/15/19 1340 Date Transcribed: 03/15/19 1423 Smearer: Signed Mirella Mccracken Work Phone: Start: 11-17-2017 End: 11-17-2017 PT D/C Summary (1) Comments: See Note; NOTES: [facility] [address] [place] [address]. [address] [place] [address] Fax REHABILITATION SERVICES DISCHARGE SUMMARY MR#: [id number] Acct: [id number] Name: AGUSTIN GARCIA Rep #: [id number] : 1940 77 From: Chester Christine DPT, OCS, CSCS Referring DrSamaria: Mirella Mccracken DO Status: REG RCR Insurance: MEDICARE PART A B [employer] HP - PT D/C Summary It has been my pleasure to treat AGUSTIN GARCIA under orders from Mirella Mccracken, for the diagnosis of L hip pain. [...] please feel free to call me at [phone]. Thank you for the referral of this patient. Sincerely, Chester Christine, DPT, OC <Electronically signed by Chester Christine DPT, OCS, CSCS> 11/17/17 0920 CC: Mirella Mccracken DO EBG Signed Mirella Mccracken Start: 11-13-2017 End: 11-13-2017 Inital Evaluation (1) - PT Comments: See Note; NOTES: [facility] [address] [place] [address]. [address] [place], [place] [address] Fax REHABILITATION SERVICES INITIAL EVALUATION MR#: [id number] Acct: [id number] Name: AGUSTIN GARCIA Rep #: [id number] : 1940 77 From: Chester Christine DPT, OCS, CSCS Referring DrSamaria: Mirella Mccracken DO Status: REG RCR Insurance: MEDICARE PART A B [facility] Patient's Visit Information AGUSTIN GARCIA is a 77 year old F referred to Physical Therapy by Mirella PARKS with a diagnosis of L hip pain.. Date of Evaluation: 11/12/17 Physical Therapist: Chester Christine, JAZMINE, OC - Visit Plan Frequency: 3x /Week [...] to be FAXED BACK to us at [phone] for Medicare purposes. Please let me know if there are questions or concerns regarding this plan of care. Physician Signature: _Date: <Electronically signed by Chester Christine DPSinan, OCS, CSCS> 11/13/17 0645 CC: Mirella Mccracken DO EBG Signed For Medicare only, by signing this I certify the plan of care. Physicians Signature Date Mirella Mccracken Start: 10-15-2017 End: 10-15-2017 Femur Min 2 Views Comments: See Note; NOTES: [facility] [address] [place] [address] Femur Min 2 Views MR#: [id number] Acct: [id number] Name: AGUSTIN GARCIA Rep #: [id number] : 1940 F 77 From: Edward Jha MD PCP: Mirella Mccracken DO Status: REG CLI Study: Femur Min 2 Views Date of Exam: 10/15/17 Exam# [id number] Ordering Dr: Mirella Mccracken DO STUDY: X-RAY [...] Edward Jha MD at 15:48 EST Tel [phone], Service support , CC: Mirella Mccracken DO Smearer: Signed Mirella Mccracken Work Phone: Start: 10-15-2017 End: 10-15-2017 Hip 2-3 Views with Pelvis Comments: See Note; NOTES: [facility] [address] [place] [address] Hip 2-3 Views with Pelvis MR#: [id number] Acct: [id number] Name: AGUSTIN GARCIA Rep #: [id number] : 1940 77 From: Edward Jah MD PCP: Mirella Mccracken DO Status: REG CLI Study: Hip 2-3 Views with Pelvis Date of Exam: 10/15/17 Exam# [id number] Ordering Dr: Mirella Mccracken DO STUDY: X-RAY [...] Edward Jha MD at 15:54 EST Tel [phone], Service support , STUDY: X-RAY - PELVIS [...] Edward Jha MD at 15:55 EST Tel [phone], Service support , CC: Mirella Mccracken DO Smearer: Signed Mirella Mccracken Work Phone: Start: 06-05-2017 End: 06-05-2017 Follow Up Appt 6 months Jose Vargas MD Start: 06-05-2017 End: 06-05-2017 [facility] Jose Vargas MD Start: 03-26-2017 End: 03-26-2017 Ribs Uni Min 3V w/PA Chest Comments: See Note; NOTES: [facility] [address] [place] [address] Verda 4d Ribs Uni Min 3V w/PA Chest MR#: [id number] Acct: [id number] Name: AGUSTIN GARCIA Rep #: [id number] : 1940 F 76 From: Tomas Pat MD PCP: Mirella Mccracken DO Status: REG CLI Study: Ribs Uni Min 3V w/PA Chest Date of Exam: 03/26/17 Exam# [id number] Ordering Dr: Stephenie Burkett MD STUDY: X-RAY [...] CC: Stephenie Burkett MD; Mirella Mccracken DO Smearer: Signed Stephenie Burkett Work Phone: Start: 11-13-2016 End: 11-13-2016 Kidney and Bladder Comments: See Note; NOTES: [facility] [address] [place] [address] Verdana 4d Kidney and Bladder MR#: [id number] Acct: [id number] Name: AGUSTIN GARCIA Rep #: [id number] : 1940 F 76 From: Mackenzie Ortega MD PCP: Mirella Mccracken DO Status: REG CLI Study: Kidney and Bladder Date of Exam: 11/13/16 Exam# [id number] Ordering Dr: Uriel Francois MD STUDY: RENAL [...] MD at 16:03 EST , Service support [phone], CC: Uriel Francois MD; Mirella Mccracken DO Smearer: Signed Mirella Mccracken Start: 11-03-2016 End: 11-03-2016 Follow Up Appt 9 months Zaria Trevino PA-C Work Phone: Start: 11-03-2016 End: 11-03-2016 [facility] Zaria Trevino PA-C Work Phone: Start: 07-07-2016 End: 07-07-2016 Breast Limited Unilateral Comments: See Note; NOTES: [facility] [address] [place] [address] Verdana 4d Breast Limited Unilateral MR#: [id number] Acct: [id number] Name: AGUSTIN GARCIA Rep #: [id number] : 1940 F 76 From: Edward Jha MD PCP: Mirella Mccracken DO Status: REG CLI Study: Breast Limited Unilateral Date of Exam: 07/07/16 Exam# [id number] Ordering Dr: Mirella Mccracken DO STUDY: ULTRASOUND [...] Edward Jha MD at 15:23 EDT Tel [phone], Service support [phone], CC: Mirella Mccracken DO Smearer: Signed Mirella Mccracken Work Phone: Start: 07-07-2016 End: 07-07-2016 Unilat Rt Diag Digital AND CAD Comments: See Note; NOTES: [facility] [address] [facility] [place] [address] Verdana 4d Unilat Rt Diag Digital AND CAD MR#: [id number] Acct: [id number] Name: AGUSTIN GARCIA Rep #: [id number] : 1940 F 76 From: Edward Jha MD PCP: Mirella Mccracken DO Status: REG CLI Study: Unilat Rt Diag Digital AND CAD Date of Exam: 07/07/16 Exam# [id number] Ordering Dr: Mirella Mccracken DO MAMMOGRAPHY - [...] no significant change since the prior study. [facility]Unilat Rt Diag Digital AND CAD IMPRESSION: Stable [...] Edward Jha MD at 15:21 EDT Tel [phone], Service support [phone], CC: Mirella Mccracken DO Smearer: Signed Mirella Mccracken Work Phone: Start: 05-21-2016 End: 05-22-2016 Foot min 3 Views Comments: See Note; NOTES: [facility] [address] [place] [address] Verdana 4d Foot min 3 Views MR#: [id number] Acct: [id number] Name: AGUSTIN GARCIA Rep #: [id number] : 1940 F 76 From: Edward Jha MD PCP: Mirella Mccracken DO Status: REG CLI Study: Foot min 3 Views Date of Exam: 05/21/16 Exam# [id number] Ordering Dr: Mirella Mccracken DO STUDY: X-RAY [...] Edward Jha MD at 9:42 EDT Tel [phone], Service support [phone], CC: Mirella Mccracken DO Smearer: Signed Mirella Mccracken Work Phone: Start: 05-07-2016 End: 05-07-2016 Follow Up Appt 6 months Jose Vargas MD Start: 05-07-2016 End: 05-07-2016 MM Jose Vargas MD Start: 01-04-2016 End: 01-04-2016 Ecg routine ecg w/least 12 lds w/i&r [MEASUREMENTS ANALYSIS] Date of Test: 01/04/2016 10:09:41; Heart Rate: 59; WI Interval: 158; QRS: 88; QT Interval: 432; Corrected QT Interval (QTc): 431; P Wave Allons: 32; QRS Wave Allons: 10; T Wave Allons: 47; Blood Pressure: 110/64 [ECG DIAGNOSTIC STATEMENTS] Date of Test: 01/04/2016 10:09:41; Summary: Sinus Bradycardia WITHIN NORMAL LIMITS Mirella Mccracken Work Phone: Comment on above: sinus elin no acute chg Start: 11-29-2015 End: 11-29-2015 Carotid Duplex Ultrasound Comments: See Note; NOTES: [facility] [address] [place] [address] Carotid Duplex Ultrasound 11/20/15 1035 MR#: [id number] Acct: [id number] Name: AGUSTIN GARCIA Rep #: [id number] : 1940 75 From: Miko Cutler MD [...] the left vertebral artery. Procedure Carotid Duplex 90411. The exam was diagnostic. Exam performed in [...] Dictated: 11/20/15 1035 Date Transcribed: 11/29/15 1556 Smearer: Signed Mirella Mccracken Start: 11-13-2015 End: 11-13-2015 Bilat Scrn Digital AND CAD Comments: See Note; NOTES: [facility] [address] [place] [address] Verdana 4d Bilat Scrn Digital AND CAD MR#: [id number] Acct: [id number] Name: AGUSTIN GARCIA Rep #: [id number] : 1940 F 75 From: Edward Jha MD PCP: Mirella Mccracken DO Status: REG CLI Study: Bilat Scrn Digital AND CAD Date of Exam: 11/13/15 Exam# [id number] Ordering Dr: Mirella Mccracken DO MAMMOGRAPHY - [...] delay biopsy of a clinically suspicious abnormality. [id number] Electronically Signed: Edward Jha MD at 14:46 EST Tel [phone], Service support [phone], CC: Mirella Mccracken DO Smearer: Signed Mirella Mccracken Work Phone: Start: 11-05-2015 [...] Cervical without Contras Comments: See Note; NOTES: [facility] [address] [place] [address] CAT Scan Report MR#: [id number] Acct: [id number] Name: AGUSTIN GARCIA Rep #: [id number] : 1940 F 75 From: Otoniel Tam MD PCP: Mirella Mccracken DO Status: REG CLI Study: Spine Cervical without Contras Date of Exam: 06/07/15 Exam# [id number] Ordering Dr: Louis Tsang STUDY: CT CERVICAL [...] MD at 16:59 EDT , Service support [phone], CC: Mirella Mccracken DO; LOUIS TSANG Smearer: Signed Mirella Mccracken Start: 05-22-2015 End: 05-23-2015 Spine Lumbar without Contrast Comments: See Note; NOTES: [facility] [address] [place] [address] CAT Scan Report MR#: [id number] Acct: [id number] Name: AGUSTIN GARCIA Rep #: [id number] : 1940 F 75 From: Ruddy Pozo MD PCP: Mirella Mccracken DO Status: REG CLI Study: Spine Lumbar without Contrast Date of Exam: 05/22/15 Exam# [id number] Ordering Dr: Louis Tsang STUDY: CT LUMBAR [...] at 10:05 EDT Tel , Service support [phone], CC: Mirella Mccracken DO; LOUIS TSANG Smearer: Signed Mirella Mccracken Start: 05-09-2015 End: 05-10-2015 Documentation of current medications Jose Vargas MD Start: 05-09-2015 End: 05-09-2015 Follow Up Appt 6 months Jose Vargas MD Start: 05-09-2015 End: 10-23-2016 Follow Up Appt Other Jose Vargas MD Start: 05-09-2015 End: 05-09-2015 [facility] Jose Vargas MD Start: 04-26-2015 End: 04-26-2015 Brain/Head W/WO Contrast Comments: See Note; NOTES: [facility] [address] [place] [address] CAT Scan Report MR#: [id number] Acct: [id number] Name: AGUSTIN GARCIA Rep #: [id number] : 1940 F 74 From: Edward Jha MD PCP: Mirella Mccracken DO Status: REG CLI Study: Brain/Head W/WO Contrast Date of Exam: 04/26/15 Exam# [id number] Ordering Dr: Mirella Mccracken DO STUDY: CT [...] Edward Jha MD at 12:51 EDT Tel [phone], Service support [phone], CC: Mirella Mcrcacken DO Smearer: Signed Mirella Mccracken Work Phone: Start: 10-24-2014 End: 10-24-2014 Breast Complete Unilateral Comments: See Note; NOTES: [facility] [address] [place] [address] Ultrasound Report MR#: [id number] Acct: [id number] Name: AGUSTIN GARCIA Rep #: [id number] : 1940 F 74 From: Edward Jha MD PCP: Mirella Mccracken DO Status: REG CLI Study: Breast Complete Unilateral Date of Exam: 10/24/14 Exam# [id number] Ordering Dr: Mirella Mccracken DO STUDY: ULTRASOUND [...] Edward Jha MD at 11:15 EST Tel [phone], Service support [phone], CC: Mirella Mccracken DO Smearer: Signed Mirella Mccracken Work Phone: Start: 10-24-2014 End: 10-25-2014 Dexa Bone Density Study (HP) Comments: See Note; NOTES: [facility] [address] [place] [address] Bone Density Report MR#: [id number] Acct: [id number] Name: AGUSTIN GARCIA Rep #: [id number] : 1940 F 74 From: Edward Jha MD PCP: Mirella Mccracken DO Status: [facility] CL Study: Dexa Bone Density Study () Date of Exam: 10/24/14 Exam# [id number] Ordering Dr: Mirella Mccracken DO STUDY: DUAL [...] Edward Jha MD at 10:14 EST Tel [phone], Service support [phone], CC: Mirella Mccracken DO Smearer: Signed Mirella Mccracken Work Phone: Start: 10-19-2014 End: 10-20-2014 Bilat Scrn Digital AND CAD Comments: See Note; NOTES: [facility] [address] [place] [address] Breast Imaging Report MR#: [id number] Acct: [id number] Name: RADHAAGUSTIN Rep #: [id number] : 1940 F 74 From: Edward Jha MD PCP: Mirella Mccracken DO Status: REG CLI Study: Bilat Scrn Digital AND CAD Date of Exam: 10/19/14 Exam# [id number] Ordering Dr: Mirella Mccracken DO MAMMOGRAPHY - [...] Edward Jha MD at 13:38 EST Tel [phone], Service support [phone], CC: Mirella Mccracken DO Smearer: Signed Mirella Mccracken Work Phone: Start: 10-10-2014 [...] Brain/Head W/WO Contrast Comments: See Note; NOTES: [facility] [address] [place] [address] CAT Scan Report MR#: [id number] Acct: [id number] Name: AGUSTIN GARCIA Rep #: [id number] : 1940 F 74 From: Audie Hugo MD PCP: Mirella Mccracken DO Status: REG CLI Study: Brain/Head W/WO Contrast Date of Exam: 09/08/14 Exam# [id number] Ordering Dr: Mirella Mccracken DO STUDY: CT [...] To Hugo MD at 8:17 EST Tel [phone], Service support [phone], CC: Mirella Mccracken DO Smearer: Signed Mirella Mccracken Work Phone: Start: 07-27-2014 End: 07-27-2014 History and Physical Exam Comments: See Note; NOTES: [facility] [address] [place] [address] History and Physical 07/27/14 0752 MR#: [id number] Acct: [id number] Name: AGUSTIN GARCIA Rep #: [id number] : 1940 74 From: Nella Howard PCP: Mirella Mccracken DO Status: PRE [facility] Location: [facility] DATE OF SERVICE: 07/28/2014 PREOPERATIVE [...] scheduled to undergo outpatient surgical intervention at [facility] on July 28, 2014. Pedal pulses are easily palpable bilaterally and consent was reviewed, signed and placed in chart. Nella Howard DPM T: JOVANNA JOB: [id number] 07/27/14 1156 <Electronically signed by Nella Howard > Date: Time: Nella Howard CC: Mirella Mccracken DO; Nella Howard DPM Date Dictated: 07/27/14752 Date Transcribed: 07/27/14752 Smearer: Signed ____ I have re-examined the patient. [...] Chest W/WO Contrast Comments: See Note; NOTES: [facility] [address] [place], [place] [address] CAT Scan Report MR#: [id number] Acct: [id number] Name: AGUSTIN GARCIA Rep #: [id number] : 1940 F 73 From: Edward Jha MD PCP: Status: REG CLI Study: CTA Chest W/WO Contrast Date of Exam: 12/22/13 Exam# [id number] Ordering Dr: Mirella Mccracken DO STUDY: CTA [...] at 13:14 EDT Tel , Service support [phone], CC: Mirella Mccracken DO Smearer: Signed iMrella Mccracken Work Phone: Start: 12-13-2013 End: 05-10-2015 [...] Brain/Head w/wo Contrast Comments: See Note; NOTES: [facility] [address] [place], [place] [address] CAT Scan Report MR#: [id number] Acct: [id number] Name: AGUSTIN GARCIA Rep #: [id number] : 1940 F 73 From: Audie Hugo MD PCP: Status: REG CLI Study: Brain/Head w/wo Contrast Date of Exam: 06/20/13 Exam# [id number] Ordering Dr: Stephenie Burkett MD STUDY: CT [...] June 20, 2013 at 3:17:31 PM EDT [phone] Electronically Signed BW/BW If you are the referring physician and would like to consult with the radiologist who provided this interpretation, please contact To Hugo M.D. at [phone]. If this radiologist is unavailable, you will be directed to another radiologist to assist. If you are a patient with a question regarding this report, please contact your referring physician directly. Professional Interpretation Provided By: [employer], Phone , These documents contain legally protected [...] of these documents. CC: Stephenie Burkett MD Smearer: Signed Stephenie Burkett Work Phone: Start: 05-04-2013 [...] hysterectomy Alyson Dixon Comment on above: 1972 Abdominal hysterectomy Alyson Messenger Comment on above: 1972 Abdominal hysterectomy Alyson Messenger Comment on above: 1972 Amputation Alyson Messenger Comment on above: 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 Amputation Alyson Messenger Comment on above: 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 Amputation Alyson Dixon Comment on above: 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 Appendectomy Alyson Dixon Comment on above: 1949 Appendectomy Alyson iDxon Comment on above: 1949 Appendectomy Alyson Dixon [...] Alyson richter Comment on above: with surgery [id number] Kidney Problems Alyson richter Comment on above: with surgery [id number] Kidney Problems Alyson richter Comment on above: with surgery [id number] Ligation of fallopia n tube Alyson Dixon [...] Treatment Date Care Activity Detail Author Start: 06-28-2025 [facility] Start: 05-05-2019 Basic metabolic panel calcium total Metabolic Panel, Basic ([id number]) [facility] Work Phone: Start: 01-21-2018 Provider Instructions for Treatment [facility] Work Phone: Start: 11-24-2017 End: 11-24-2017 Appointment Appointment [facility] Work Phone: Start: 11-09-2017 Provider Instructions for Treatment Hip Bursa [facility] Work Phone: Start: 10-15-2017 Provider Instructions for Treatment Hip Bursa-L [facility] Work Phone: Start: 09-18-2017 Provider Instructions for Treatment [facility] Work Phone: Start: 06-05-2017 End: 06-05-2017 Follow Up Appt 6 months Follow Up Appt 6 months [facility] Work Phone: Start: 06-05-2017 End: 06-05-2017 MMM MMM [facility] Work Phone: Start: 05-07-2017 Provider Instructions for Treatment [facility] Work Phone: Start: 05-07-2017 Urnls dip stick/tablet reagent auto microscopy URINALYSIS, W/ MICRO ([id number]) [facility] Work Phone: Start: 05-07-2017 Urine albumin quantitative MICROALBUMIN: CREATININE RATIO (78038) AND (88112) [facility] Work Phone: Start: 12-25-2016 Procedure Education Eprescribed prescriptions ([id number]) [facility] Work Phone: Start: 12-25-2016 Provider Instructions for Treatment [facility] Work Phone: Start: 11-03-2016 End: 11-03-2016 Follow Up Appt 9 months Follow Up Appt 9 months [facility] Work Phone: Start: 11-03-2016 End: 11-03-2016 PFM PFM [facility] Work Phone: Start: 09-25-2016 Procedure Education Eprescribed prescriptions (G8553) [facility] Work Phone: Start: 09-25-2016 Provider Instructions for Treatment [facility] Work Phone: Start: 07-02-2016 Lipid panel Lipid Panel (26691) [facility] Work Phone: Start: 06-25-2016 Provider Instructions for Treatment [facility] Work Phone: Start: 05-12-2016 End: 05-11-2015 *Hepatic Function Panel *Hepatic Function Panel [facility] Work Phone: Start: 05-12-2016 End: 05-11-2015 Lipid panel [AGGREGATE] *Lipid Profile CC PCP [facility] Work Phone: Start: 05-07-2016 End: 05-07-2016 Follow Up Appt 6 months Follow Up Appt 6 months [facility] Work Phone: Start: 05-07-2016 End: 05-07-2016 MMM MMM [facility] Work Phone: Start: 01-04-2016 Patient Education Instructions for the Patient Before and After Surgery *: instructions [facility] Work Phone: Start: 01-04-2016 Provider Instructions for Treatment [facility] Work Phone: Start: 11-29-2015 Provider Instructions for Treatment [facility] Work Phone: Start: 11-05-2015 End: 11-05-2015 Carotid duplex Carotid duplex [facility] Work Phone: Start: 11-05-2015 End: 11-05-2015 Follow Up Appt 6 months Follow Up Appt 6 months [facility] Work Phone: Start: 11-05-2015 End: 11-05-2015 Follow Up Appt Other Follow Up Appt Other [facility] Work Phone: Start: 11-05-2015 End: 11-05-2015 PFM P[facility] Work Phone: Start: 10-24-2015 Provider Instructions for Treatment [facility] Work Phone: Start: 10-24-2015 Blood occult fecal hgb deter ia qual feces 1-3 FECAL OCCULT- Tubes sent home (49661) [facility] Work Phone: Start: 07-26-2015 Patient Education Anxiety: emotional health [facility] Work Phone: Start: 07-26-2015 Provider Instructions for Treatment [facility] Work Phone: Start: 07-26-2015 25 hydroxy includes fractions if performed CALCIFIDIOL (32970) VIT D 25 [facility] Work Phone: Start: 07-26-2015 Urnls dip stick/tablet reagent auto microscopy URINALYSIS, W/ MICRO (63055) [facility] Work Phone: Start: 07-26-2015 Urine albumin quantitative MICROALBUMIN: CREATININE RATIO (18437) AND (74832) [facility] Work Phone: Start: 07-26-2015 Comprehensive metabolic panel METABOLIC PANEL, COMPREHENSIVE (42607) [facility] Work Phone: Start: 07-26-2015 Blood count complete auto&auto difrntl wbc CBC W/AUTO DIFF WBC (13006) [facility] Work Phone: Start: 07-26-2015 Thyrotropin Qn TSH (59720) [facility] Work Phone: Start: 07-26-2015 Lipid panel LIPID PANEL (08687) [facility] Work Phone: Start: 05-09-2015 End: 05-09-2015 Follow Up Appt 6 months Follow Up Appt 6 months [facility] Work Phone: Start: 05-09-2015 End: 10-23-2016 Follow Up Appt Other Follow Up Appt Other [facility] Work Phone: Start: 05-09-2015 End: 05-09-2015 MMM MMM [facility] Work Phone: Start: 04-26-2015 Culture bct isol&prsmptv id isolate ea urine URINE IBRAHIMA CULTURE-IDENTIFICATN (94997) [facility] Work Phone: Start: 04-19-2015 Procedure Education Eprescribed prescriptions (G8553) [facility] Work Phone: Start: 04-19-2015 Provider Instructions for Treatment [facility] Work Phone: Start: 04-19-2015 Cobalamin (Vitamin B12) mass conc VITAMIN B-12 (CYANOCOBALAMIN) (84409) [facility] Work Phone: Start: 04-19-2015 Urnls dip stick/tablet rgnt auto w/o microscopy URINALYSIS W/O MICRO (20928) [facility] Work Phone: Start: 04-19-2015 Thyrotropin Qn TSH (80523) [facility] Work Phone: Start: 04-19-2015 Urine albumin quantitative MICROALBUMIN: CREATININE RATIO (89660) AND (95450) [facility] Work Phone: Start: 04-19-2015 Comprehensive metabolic panel METABOLIC PANEL, COMPREHENSIVE (69474) [facility] Work Phone: Start: 04-19-2015 Blood count complete auto&auto difrntl wbc CBC W/AUTO DIFF WBC (03816) [facility] Work Phone: Start: 04-19-2015 Lipid panel LIPID PANEL (36672) [facility] Work Phone: Start: 04-19-2015 25 hydroxy includes fractions if performed CALCIFIDIOL (14480) VIT D 25 [facility] Work Phone: Start: 01-11-2015 Provider Instructions for Treatment [facility] Work Phone: Start: 01-11-2015 25 hydroxy includes fractions if performed Vitamin D Hydroxy (59221) [facility] Work Phone: Start: 01-11-2015 Lipid panel LIPID PANEL (50476) [facility] Work Phone: Start: 01-11-2015 Thyrotropin Qn TSH (88450) [facility] Work Phone: Start: 01-11-2015 Urnls dip stick/tablet reagent auto microscopy URINALYSIS, W/ MICRO (69692) [facility] Work Phone: Start: 01-11-2015 Urine albumin quantitative MICROALBUMIN: CREATININE RATIO (76531) AND (40018) [facility] Work Phone: Start: 01-11-2015 Comprehensive metabolic panel METABOLIC PANEL, COMPREHENSIVE (54373) [facility] Work Phone: Start: 01-11-2015 Blood count complete auto&auto difrntl wbc CBC W/AUTO DIFF WBC (64954) [facility] Work Phone: Start: 10-31-2014 Provider Instructions for Treatment *Calcium Education (KF) [facility] Work Phone: Start: 10-12-2014 Provider Instructions for Treatment [facility] Work Phone: Start: 10-10-2014 End: 10-10-2014 Electrocardiogram, complete EKG (In office) [facility] Work Phone: Start: 10-10-2014 End: 10-10-2014 Follow Up Appt 6 months Follow Up Appt 6 months [facility] Work Phone: Start: 10-10-2014 End: 10-23-2016 Follow Up Appt Other Follow Up Appt Other [facility] Work Phone: Start: 10-10-2014 End: 10-10-2014 PFM [facility] Work Phone: Start: 10-09-2014 25 hydroxy includes fractions if performed Vitamin D Hydroxy (40492) [facility] Work Phone: Start: 08-31-2014 [...] 6 months Follow Up Appt 6 months [facility] Work Phone: Start: 04-10-2014 End: 04-10-2014 Follow Up BP Check Follow Up BP Check [facility] Work Phone: Start: 04-10-2014 End: 04-10-2014 MMM MMM [facility] Work Phone: Start: 04-06-2014 Procedure Education Eprescribed prescriptions (G8553) [facility] Work Phone: Start: 04-06-2014 Provider Instructions for Treatment [facility] Work Phone: Start: 04-06-2014 Prothrombin time (PT) Coag time (PPP) PT (Prothrobim Time) (06291) [facility] Work Phone: Comment on above: inr Start: 12-30-2013 Provider Instructions for Treatment [facility] Work Phone: Start: 12-13-2013 End: 05-10-2015 *Hepatic Function Panel *Hepatic Function Panel [facility] Work Phone: Start: 12-13-2013 End: 05-10-2015 Lipid panel [AGGREGATE] *Lipid Profile CC PCP [facility] Work Phone: Start: 12-07-2013 End: 12-07-2013 Follow Up Appt Other Follow Up Appt Other [facility] Work Phone: Start: 12-07-2013 End: 12-07-2013 PFM PFM [facility] Work Phone: Start: 12-01-2013 Patient Education Water in diet, brief version [facility] Work Phone: Start: 12-01-2013 Provider Instructions for Treatment [facility] Work Phone: Start: 08-08-2013 End: 08-08-2013 Follow Up Appt 4 months Follow Up Appt 4 months [facility] Work Phone: Start: 08-08-2013 End: 08-08-2013 Follow Up Appt Other Follow Up Appt Other [facility] Work Phone: Start: 08-08-2013 End: 08-08-2013 MMM MMM [facility] Work Phone: Start: 08-08-2013 End: 08-08-2013 PFM PFM [facility] Work Phone: Start: 08-01-2013 Provider Instructions for Treatment [facility] Work Phone: Start: 07-04-2013 Provider Instructions for Treatment [facility] Work Phone: Start: 06-27-2013 Provider Instructions for Treatment [facility] Work Phone: Start: 06-20-2013 Blood count complete auto&auto difrntl wbc CBC, PLATELETS & AUT DIFF (32036) [facility] Work Phone: Start: 06-20-2013 CRP mass conc C-Reactive Protein (69086) [facility] Work Phone: Start: 06-20-2013 Sedimentation rate rbc non-automated Sed Rate Erythrocyte (92516) [facility] Work Phone: Start: 06-20-2013 Creatinine mass conc CREATININE BLOOD (44344) [facility] Work Phone: Start: 06-08-2013 Patient Education Flu (Influenza) *: flu shot [facility] Work Phone: Start: 05-20-2013 Provider Instructions for Treatment Reviewed Diagnostic Tests [facility] Work Phone: Start: 05-04-2013 End: 07-07-2013 *BMP *BMP [facility] Work Phone: Start: 04-27-2013 End: 04-27-2013 Pulmonary Fuction Test - complete Pulmonary Fuction Test - complete [facility] Work Phone: Start: 04-22-2013 Provider Instructions for Treatment Reviewed Diagnostic Tests [facility] Work Phone: Start: 04-19-2013 End: 04-20-2013 *BMP *BMP [facility] Work Phone: Start: 04-19-2013 End: 04-20-2013 aPTT *PTT-Partial Thromboplastin Time [facility] Work Phone: Start: 04-19-2013 End: 04-20-2013 CBC W Auto Differential panel - Blood *CBC without Diff [facility] Work Phone: Start: 04-19-2013 End: 04-20-2013 Chest x-ray X-Ray, Chest, PA & Lateral [facility] Work Phone: Start: 04-19-2013 End: 04-20-2013 Coagulation factor induced.INR assay in platelet poor plasma *PT/INR [facility] Work Phone: Start: 04-19-2013 End: 04-19-2013 Electrocardiogram, complete EKG (In office) [facility] Work Phone: Start: 04-19-2013 End: 04-19-2013 Follow Up Appt Other Follow Up Appt Other [facility] Work Phone: Start: 04-18-2013 End: 04-18-2013 Left & Right Heart Cath W/Grafts Left & Right Heart Cath W/Grafts [facility] Work Phone: Start: 04-15-2013 Patient Education Water in diet, brief version [facility] Work Phone: Start: 04-15-2013 Provider Instructions for Treatment [facility] Work Phone: Start: 03-15-2013 End: 03-09-2013 Echocardiography Echocardiogram (complete) [facility] Work Phone: Start: 02-28-2013 Provider Instructions for Treatment [facility] Work Phone: Start: 02-10-2013 End: 02-10-2013 Arterial exam Arterial exam [facility] Work Phone: Start: 02-10-2013 End: 02-10-2013 Electrocardiogram, complete EKG (In office) [facility] Work Phone: Start: 02-10-2013 End: 02-10-2013 Flecainide [Mass/volume] in Serum or Plasma *FLEC Flecainide (Tambocor) 56440 [facility] Work Phone: Start: 02-10-2013 End: 02-10-2013 Follow Up Appt 6 months Follow Up Appt 6 months [facility] Work Phone: Start: 02-10-2013 End: 08-08-2013 Lipid panel [AGGREGATE] *Lipid Profile CC PCP [facility] Work Phone: Start: 02-10-2013 End: 02-10-2013 MMM MMM [facility] Work Phone: Start: 11-15-2012 Provider [...] urine URINE IBRAHIMA CULTURE (TY COL COUNT) (88721) [facility] Work Phone: Start: 09-16-2012 Provider Instructions for Treatment Follow up in 1 month [facility] Work Phone: Start: 07-08-2012 End: 04-18-2013 *Hepatic Function Panel *Hepatic Function Panel [facility] [employer] Work Phone: Start: 07-08-2012 End: 07-09-2012 Electrocardiogram, complete EKG (In office) [facility] Work Phone: Start: 07-08-2012 End: 07-09-2012 Follow Up Appt 6 months Follow Up Appt 6 months [facility] Work Phone: Start: 07-08-2012 End: 04-18-2013 Lipid panel [AGGREGATE] *Lipid Profile [facility] Work Phone: Start: 04-12-2012 End: 04-12-2012 Follow Up Appt 3 months Follow Up Appt 3 months [facility] [employer] [facility] Work Phone: Start: 03-05-2012 Provider Instructions for [...] 04-18-2013 *Hepatic Function Panel *Hepatic Function Panel [facility] Work Phone: Start: 01-06-2012 End: 01-06-2012 24 hour holter monitor 24 hour holter monitor [employer] Work Phone: Start: 01-06-2012 End: 01-06-2012 Electrocardiogram, complete EKG (In office) [facility] Work Phone: Start: 01-06-2012 End: 01-06-2012 Follow Up Appt 3 months Follow Up Appt 3 months [facility] Work Phone: Start: 01-06-2012 End: 01-06-2012 Follow Up Appt Other Follow Up Appt Other [facility] Work Phone: Start: 01-06-2012 End: 04-18-2013 Lipid panel [AGGREGATE] *Lipid Profile [facility] Work Phone: Start: 12-31-2011 Provider Instructions for Treatment [facility] Work Phone: Start: 12-24-2011 Fibrin dgradj products d-dimer quantitative D-Dimer (96532) [facility] Work Phone: Start: 12-24-2011 Blood count complete automated CBC (AUTO) (65502) [facility] Work Phone: Start: 12-03-2011 Culture bacterial quanttative colony count urine URINE IBRAHIMA CULTURE-TY COL COUNT (48500) [facility] Work Phone: Start: 11-26-2011 Provider Instructions for Treatment [facility] Work Phone: Start: 11-06-2011 Provider Instructions for Treatment Reviewed Diagnostic Tests [facility] Work Phone: Start: 11-04-2011 Renal function panel Renal function Panel (63362) [facility] Work Phone: Start: 10-22-2011 CRP mass conc C-Reactive Protein (37094) [facility] Work Phone: Start: 10-21-2011 Renal function panel Renal function Panel (73744) [facility] Work Phone: Start: 10-21-2011 Provider Instructions for Treatment Follow up in 2 weeks [facility] Work Phone: Start: 10-21-2011 Fibrin dgradj products d-dimer quantitative D-Dimer (47029) [facility] Work Phone: Start: 10-21-2011 Troponin I.cardiac mass conc Troponin I (21971) [facility] Work Phone: Start: 10-21-2011 Creatine kinase mb fraction only CPK MB FRACTION (16483) [facility] Work Phone: Start: 10-21-2011 Creatine kinase total CREATINE KINASE TOTAL (11117) [facility] Work Phone: Start: 10-21-2011 CRP mass conc C-Reactive Protein (13448) [facility] Work Phone: Start: 06-17-2010 Provider Instructions for Treatment [facility] Work Phone: Start: 12-13-2009 Provider Instructions for Treatment [facility] Work Phone: Start: 01-17-2009 Provider Instructions for Treatment [facility] Work Phone: Start: 01-12-2009 Provider Instructions for Treatment *ERGOCALCIFEROL DOSAGE PER SHEWMON [facility] Work Phone: Start: 01-12-2009 Nuclear Ab IF titer (S) CORTES (ANTINUCLEAR ANTIBODY) (75251) [facility] Work Phone: Start: 01-12-2009 Rheumatoid factor quantitative RHEUMATOID FACTOR-QUANT (50725) [facility] Work Phone: Start: 01-12-2009 25 hydroxy includes fractions if performed Vitamin D Hydroxy (76886) [facility] Work Phone: Comment on above: do in 3-4 months Start: 01-02-2009 Provider Instructions for Treatment [facility] Work Phone: Start: 01-02-2009 25 hydroxy includes fractions if performed Vitamin D Hydroxy (86079) [facility] Work Phone: Start: 01-02-2009 1 25 dihydroxy includes fractions if performed VITAMIN D, 1, 25-DIHYDROXY (43083) [facility] Work Phone: Start: 01-02-2009 Thyrotropin Qn TSH (62943) [facility] Work Phone: Start: 01-02-2009 Protein electrophoretic fractj&quantj serum [facility] Work Phone: Start: 01-02-2009 Sedimentation rate rbc non-automated SED RATE ERYTHROCYTE (59098) [facility] Work Phone: Start: 01-02-2009 Phosphate mass conc PHOSPHORUS (99255) [facility] Work Phone: Start: 01-02-2009 Assay of parathormone PARATHORMONE (43646) [facility] Work Phone: Start: 01-02-2009 Hepatic function panel HEPATIC FUNCTION PANEL (66584) [facility] Work Phone: Start: 01-02-2009 Blood count complete automated CBC (AUTO) (98109) [facility] Work Phone: Start: 01-02-2009 Calcium mass conc CALCIUM SERUM (47966) [facility] Work Phone: Start: 01-02-2009 CRP mass conc C-REACTIVE PROTEIN (60265) [facility] Work Phone: Start: 01-02-2009 ALP enzyme act/vol ALKALINE PHOSPHATASE (19658) [facility] Work Phone: Start: 10-04-2008 Provider Instructions for Treatment [facility] Work Phone: Start: 10-04-2008 Lipid panel LIPID PANEL (49497) [facility] Work Phone: Start: 09-21-2008 Patient Education Water in diet, brief version [facility] Work Phone: Start: 09-21-2008 Provider Instructions for Treatment [facility] Work Phone: Start: 08-24-2008 Provider Instructions for Treatment [facility] Work Phone: Start: 06-28-2008 Provider Instructions for Treatment [facility] Work Phone: Patient Education [facility] Work Phone: [facility] Work [...] Immunization Date Immunization Notes Care Provider [facility] 06-13-2009 influenza, seasonal, injectable Mirella Nicole [facility] Work Phone: Comment on above: Lot #[id number]-left deltoidgiven by:[facility] 06-28-2008 influenza, seasonal, injectable Mirella Nicole [facility] Work Phone: Comment on above: done km 0.5cc given im ;lt arm lot [id number] exp 02-20 Payers Date Payer Category Payer Self-pay [id number] 2024 Unknown [id number] 2024 Unknown [id number] 2016 Unknown [id number] 2004 Medicare [id number] Medicare MEDICARE PART A B [id number] Private Health Insurance [id number] Unknown Unknown [id number] 2.0.1.014895.3.579.2.462 Unknown [id number] .0.1.313022.3.579.2.462 Unknown [id number] 2.0.1.246005.3.579.2.462 Unknown [id number] 2.840.1.949732.3.579.2.462 Unknown [id number] 2.0.1.166883.3.579.2.462 Unknown [id number] 2.840.1.977126.3.579.2.462 Unknown [id number] .840.1.958355.3.579.2.462 Unknown [id number] 2.840.1.543940.3.579.2.462 Unknown [id number] 2.840.1.703854.3.579.2.462 Unknown [id number] 2.840.1.988908.3.579.2.462 Unknown [id number] 2.16.840.1.826066.3.579.2.462 Unknown [id number] 2.16.840.1.171682.3.579.2.462 Unknown [id number] 2.16.840.1.312358.3.579.2.462 Unknown [id number] 2.16.840.1.226843.3.579.2.462 Unknown [id number] 2.16.840.1.629582.3.579.2.462 Unknown [id number] 2.16.840.1.460175.3.579.2.462 Unknown [id number] 2.16.840.1.849931.3.579.2.462 Unknown [id number] 2.840.1.915256.3.579.2.462 Unknown [id number] 2..840.1.558891.3.579.2.462 Unknown [id number] 2..840.1.399858.3.579.2.462 Unknown [id number] 2.16.840.1.705377.3.579.2.462 Unknown [id number] 2.16.840.1.018225.3.579.2.462 Unknown [id number] 2.16.840.1.450700.3.579.2.462 Unknown [id number] 2..840.1.280973.3.579.2.462 Unknown [id number] 2.16.840.1.144751.3.579.2.462 Unknown [id number] 2.16.840.1.100026.3.579.2.462 Unknown [id number] 2.16.840.1.907494.3.579.2.462 Unknown [id number] 2.16.840.1.938281.3.579.2.462 Unknown [id number] 2.16.840.1.661169.3.579.2.462 Unknown [id number] 2.16.840.1.416143.3.579.2.462 Unknown [id number] 2.16.840.1.032331.3.579.2.462 Unknown [id number] 2.16.840.1.677611.3.579.2.462 Unknown [id number] 2.16.840.1.002327.3.579.2.462 Unknown [id number] 2.16.840.1.405672.3.579.2.462 Unknown [id number] 2.16.840.1.647379.3.579.2.462 Unknown [id number] 2.16.840.1.622289.3.579.2.462 Social History Date Type Detail Facility Caffeine Use Never smoker [facility] Work Phone: Comment on above: 2 per week 3-4 miles QD walking , heterosexua l, celibate Retired Tobacco use: Never smoker. [facility] Work Phone: Start: 09-30-2021 End: 07-09-2023 Tobacco smoking status WIIS Unknown if ever smoked [facility] Start: 06-12-2021 None [facility] Start: 06-12-2021 Homeless [facility] Start: 06-12-2021 Non-smoker [facility] Start: 1940 Sex Assigned At Female [facility] Start: 02-07-2024 End: 06-28-2025 Tobacco smoking status NHIS Never smoked tobacco (finding) [facility] Start: 12-14-2024 End: 01-04-2025 Sex Female (finding) [facility] Sex Female [facility] Medical Equipment Procedure Code Equipment Code [...] 05-27-2019 GENERATOR,BLADDE R STIM [facility] Start: 05-27-2019 Mental Status Date Assessment Result Facility 06-28-2025 Cognitive function Voice/Name [facility] Work Phone: Discharge summary 06-28-2025 Note Date & Type Note Facility 06-28-2025 Discharge summary [facility] Discharge summary 06-28-2025 Note Date & Type Note Facility 06-28-2025 Discharge summary Note Date/Time June 28, 2025 10:17pm [facility] Medical Records Department [address] [place] [address] Emergency Department Summary 06/28/25 MR#: [id number] Acct: [id number] Name: RADHAAGUSTIN ARAUJO Clara Rep #:[id number] : 1940 85 From: Aric Oneil MD PCP: Dr. Yesika Faust MD Status:R EG ER Location: ED HPI History of Present Illness Chief Complaint: Confusion Narrative Narrative: 85-year-old female past [facility]. Patient denies any fevers or chills, no nausea or vomiting, denies that she is in pain anywhere. She had notbeen combative with squad or staff here as of yet. On review of her paperwork, she is DO NOT RESUSCITATE [facility] arrest. [facility] Medical History Dyspnea Intermittent claudication Shortness of breath Family history of coronary artery disease Family history of hyperlipidemia Family history of hypertension Home Medications ?Medication ?Instructions ?Recorded ?Last Taken ?Type aspirin 81 mg tablet,delayed 81 mg PO DAILY@0800 07/2505/25/15 History release diclofenac sodium 1 % topical gel 4 g topical BID 09/14 04/04 Unknown History melatonin 3 mg capsule 3 mg PO HS 04/09/23 Unknown History acetaminophen 500 mg tablet 1,000 mg PO TID 02/07/24 U nknown History donepezil 10 mg tablet 10 mg PO QHS 02/07/24 Unknow n History duloxetine 60 mg capsule,delayed 60 mg PO DAILY Unknown History release sennosides 8.6 mg-docusate sodium 2 tab-cap PO QHS Unknown History 50 mg tablet (Senexon-S) pregabalin 25 mg capsule 25 mg PO QDAY neuropathic pa in 30 06/05/25 Unknown Rx days #30 caps lorazepam 0.5 mg tablet 0.5 mg PO TID agitation 30 d ays 06/26/25 Unknown Rx #90 tabs brexpiprazole 1 mg tablet (Rexulti) 1 mg PO DAILY 06/14 02/05 Unknown History divalproex 125 mg capsule,delayed 125 mg PO TID Unknown History release sprinkle mirtazapine 7.5 mg tablet 7.5 mg PO QHS 06/28/25 Unkno wn History Allergy/AdvReac Type Severity Reaction Status Date / Time sulfamethoxazole Allergy Unknown Other Verified 06/28/25 19:24 acetaminophen (From Vicodin) Allergy Other Verified 06/28/25 19:24 hydrocodone (From Vicodin) Allergy Other Verified 06/28/25 19:24 Family History Other Family history of coronary artery disease Family history of hyperlipidemia Family history of hypertension Social History Smoking Status: Never smoker ROS ROS ED ROS Narrative Review of systems limited secondary to dementia. Patient denies fevers or chills, no nausea or vomiting, states she is not in pain anywhere. Denies any other symptoms. EXAM Physical Exam Narrative Exam Narrative: Afebrile. Vital signs noted. Nontoxic-appearing. Cardiovascular examination feels regular rate and rhythm. Lungs are clear to auscultation bilaterally. Abdomen soft and nontender without guarding or rebound. Neurological examination shows her comfortably lying on the cot. Awake, alert, interactive, currently pleasant. Const Vital Signs: 06/28/25 19:24 06/28/25 21:23 Temperature 98.3 F Temperature Source Oral Pulse Rate 83 Respiratory Rate 18 Blood Pressure 173/98 H 139/89 H Blood Pressure Mean 123 105 Pulse Ox 97 Oxygen Delivery Method Room Air MDM MDM MDM Narrative Medical decision making narrative: Differential diagnosis includes but not limited to dementia with agitation exacerbation versus dehydration versus UTI causing mental status change. Patient bolused normal saline 1 L intravenously. CBC, BMP, and UAC will be checked. I reviewed her laboratory work and she has normal white count of 5.2 with hemoglobin 13.2, hematocrit 39.9, platelet count 219. BMP is remarkable for glucose of 129 with a normal anion gap of 9, BUN of 20 which I think is nonspecific and creatinine 0.78. Urinalysis obtained and is negative for infection with 0-5 WBCs and 0 bacteria. I do not feel antibiotics are indicated. She was extremely agitated with the staff. I reviewed her medication list and she is supposed to be taking Ativan 0.5 mg orally up to 3 times a day. As this is already on her medication list and she is still agitated, she was administered Haldol 2 mg intravenously. She was still mildly combative. She will be dosed her Ativan 0.5 mg intravenously and discharged back to the [facility] facility. I do not feel that she requires observation or admission as she has a history of dementia with agitation. Disposition is discharged home instable condition. History & Record Review Discussion w/independent historian: Patient Additional record(s) reviewed:: Prior ED visit (Last seen in 2023 in ED.) Lab Data Attestation: I reviewed the patient's lab results. Labs: Laboratory Results - last 24 hr 06/28/25 06/28/25 20:10 20:15 WBC 5.2 RBC 4.18 L Hgb 13.2 Hct 39.9 MCV 95.5 MCH 31.6 MCHC 33.1 RDW Std Deviation 46.7 H RDW Coeff of Jeff 13.2 Plt Count 219 MPV 10.2 Immature Gran % (Auto) 0.200 Neut % (Auto) 53.8 Lymph % (Auto) 30.5 Towns % (Auto) 10.3 H Eos % (Auto) 4.6 Baso % (Auto) 0.6 Absolute Neuts (auto) 2.8 Absolute Lymphs (auto) 1.59 Nucleated RBC % 0 Sodium 141 Potassium 4.3 Chloride 103 Carbon Dioxide 28.7 Anion Gap 9 BUN 20 H Creatinine 0.78 Est GFR (MDRD) Non-Af 74 BUN/Creatinine Ratio 25.4 H Glucose 129 H Calcium 9.4 Urine Color Yellow Urine Clarity Clear Urine pH 6.5 Ur Specific [place] 1.015 Urine Protein 15 H Urine Glucose (UA) Normal Urine Ketones Negative Urine Occult Blood 10 H Urine Nitrite Negative Urine Bilirubin Negative Urine Urobilinogen Normal Ur Leukocyte Esterase Negative Urine RBC 0-5 SEEN Urine WBC 0-5 SEEN Ur Squamous Epith Cells 0 SEEN Urine Bacteria 0 SEEN Urine Mucus 0 SEEN Discharge Plan Triage Chief Complaint: Confusion ED Provider: Aric Oneil Dx/Rx/DC Orders Clinical Impression: Dementia with agitation, Combative behavior Instructions: ED DEMENTIA Alzheimer's, ED CAREGIVER SUPPORT for DEMENTIA Prescriptions: No Action diclofenac sodium 1 % gel 4 g topical BID Rx Instructions: apply to single elbow, wrist or hand; for hand includes palm/fingers/back of hand melatonin 3 mg capsule 3 mg PO HS aspirin 81 MG tablet 81 mg PO DAILY@0800 Patient Comments: HEART/BLOOD PRESSURE divalproex 125 mg capsule, delayed rel sprinkle 125 mg PO TID mirtazapine 7.5 mg tablet 7.5 mg PO QHS Rexulti 1 mg tablet 1 mg PO DAILY sennosides-docusate sodium [Senexon-S] 8.6-50 mg tablet 2 tab-cap PO QHS acetaminophen 500 mg tablet 1,000 mg PO TID donepezil 10 mg tablet 10 mg PO QHS duloxetine 60 mg capsule,delayed release(DR/EC) 60 mg PO DAILY pregabalin 25 mg capsule 25 mg PO QDAY 30 Days Qty: 30 0RF Rx Instructions: Give in evening. lorazepam 0.5 mg tablet 0.5 mg PO TID 30 Days Qty: 90 0RF Primary Care Provider: Yesika Faust Referrals: Yesika Faust MD [Primary Care Provider, Internal Medicine] - As soon as possible Print Language: [place] Citizen Disposition Disposition: Home, Self Care What to do if you have Problems For any increased pain, shortness of breath, bleeding, nausea or vomiting, chestpain, or any unexpected problems, contact your Primary Care Provider. Call [facility] ([phone]) or report to the closest Emergency Room. Call 911 if necessary. 06/28/252216 <Electronically signed by Aric Oneil MD> Cosigner Signature (if applicable): CC: Dr. Yesika Faust MD ~ Signed [facility] Work Phone: Evaluation note Note Date & Type Note Facility Evaluation note No assessment information availa ble [facility] Work Phone: Evaluation note Note Date & Type Note Facility Evaluation note Diagnosis Onset Date Pes anserinus bursitis of left knee noneactive Osteoarthritis of left knee noneactive [facility] Work Phone: Evaluation note Note Date & Type Note Facility Evaluation note Diagnosis Onset Date Pes anserinus bursitis of left knee noneactive Osteoarthritis of left knee noneactive Pes anserinus bursitis of left knee noneactive Osteoarthritis of left knee noneactive [facility] Work Phone: Evaluation note Note Date & Type Note Facility Evaluation note Diagnosis Onset Date Osteoarthritis of left knee noneactive Osteoarthritis of left knee noneactive Osteoarthritis of left knee noneactive Osteoarthritis of left knee noneactive [facility] Work Phone: Hospital Discharge instructions Note Date & Type Note Facility Hospital Discharge instructions Additional Instructions Your laboratory work was grossly unremarkable today. Urinalysis did not show signs of infection. Continue your Ativan as previously directed. [facility] Work Phone: Reason for referral (narrative) Note Date & Type Note Facility Reason for referral (narrative) No reason for referral information available [facility] Work Phone: Family History Unknown Family Member Name Dates Details First [...] Instructions for Treatment How to access health [employer] online Indication:Hyperlipidemia Start:19-Apr-2015 Instruction Type:Patient Education How to access health informa tion online - Detail Indication:Hyperlipidemia Start:19-Apr-2015 Instruction Type:Patient Education Patient Instructions Indication:Hyperlipidemia Start:19-Apr-2015 Instruction Type:Provider Instructions for Treatment cardiovascular counseling Indication:Coronary artery disease Start:12-Oct-2014 Instruction Type:Provider Instructions for Treatment Patient Instructions Indication:Headache Start:12-Oct-2014 Instruction Type:Provider Instructions for Treatment Patient Instructions Indication:Headache Start:31-Aug-2014 Instruction Type:Provider Instructions for Treatment How to access health informa [employer] online Indication:Coronary artery disease Start:13-Jul-2014 Instruction Type:Patient Education How to access health informa tion online - Detail Indication:Coronary artery disease Start:13-Jul-2014 Instruction Type:Patient Education Patient Instructions Indication:Coronary artery disease Start:13-Jul-2014 Instruction Type:Provider Instructions for Treatment Patient Instructions Indication:SYMPTOMS INVOLVING URINARY SYSTEM; DYSURIA Start:17-Apr-2014 Instruction Type:Provider Instructions for Treatment How to access health informa [employer] online Indication:Coronary artery disease Start:06-Apr-2014 Instruction Type:Patient [...] Type:Patient Education How to access health informa [employer] online - Detail Indication:Hyperlipidemia Start:19-Apr-2015 Instruction Type:Patient Education Patient Instructions Indication:Hyperlipidemia Start:19-Apr-2015 Instruction Type:Provider Instructions for Treatment cardiovascular counseling Indication:Coronary artery disease Start:12-Oct-2014 Instruction Type:Provider Instructions for Treatment Patient Instructions Indication:Headache Start:12-Oct-2014 Instruction Type:Provider Instructions for Treatment Patient Instructions Indication:Headache Start:31-Aug-2014 Instruction Type:Provider Instructions for Treatment How to access health [employer] online Indication:Coronary artery disease Start:13-Jul-2014 Instruction Type:Patient Education How to access health informa tion [employer] - Detail Indication:Coronary artery disease Start:13-Jul-2014 Instruction Type:Patient Education Patient Instructions Indication:Coronary artery disease Start:13-Jul-2014 Instruction Type:Provider Instructions for Treatment Patient Instructions Indication:SYMPTOMS INVOLVING URINARY SYSTEM; DYSURIA Start:17-Apr-2014 Instruction Type:Provider Instructions for Treatment How to access [employer]ver online Indication:Coronary artery disease Start:06-Apr-2014 Instruction Type:Patient Education How to access [employer] informa [employer]ver online - Detail Indication:Coronary artery disease Start:06-Apr-2014 [...] Instructions Indication:SOB (shortness of breath) on exertion Start:2-Aug-2013 Instruction Type:Provider Instructions for Treatment Patient Instructions [...] for Treatment How to access health informa [employer] online Indication:Coronary artery disease Start:06-Apr-2014 Instruction Type:Patient [...] Instructions for Treatment Summary Purpose Advance Directives Advance Directive Response Recorded Date/ Time Advance Directives Yes May 5:27am Living Will Yes May 27, 2019 6:37pm Power of Accountant Bookkeeper Yes May 6:37pm Advance Directive Response Recorded Date/ Time Advance Directives Yes May 2:39pm Living Will Yes June 04, 2022 2:39pm Power of Accountant Bookkeeper Yes May 2:39pm Advance Directive Response Recorded Date/ Time Advance Directives Yes July 9:15am Living Will Yes August 01 9:15am Power of Accountant Bookkeeper Yes August 01, 2022 9:15am Advance Directive Response Recorded Date/ Time Advance Directives Yes July 10:15am Living Will Yes August 01 10:15am Power of Accountant Bookkeeper Yes August 01, 2022 10:15am Advance Directive Response Recorded Date/ Time Advance Directives Yes July 09, 2023 8:23am Living Will Yes July 09 8:23am Power of Accountant Bookkeeper Yes July 09, 2023 8:23am Advance Directive Response Recorded Date/ Time Advance Directives Yes July 09, 2023 9:23am Living Will Yes July 09 9:23am Power of Accountant Bookkeeper Yes July 09, 2023 9:23am Advance Directive Response Recorded Date/ Time Advance Directives Yes July 09, 2023 9:23am Advance Directive Response Recorded Date/ Time Advance Directives Yes March 02 6:29pm Chief Complaint and Reason for Visit Chief Complaint Right hip xray SKILLED NURSING LABWORK MONTHLY EXAM Chief Complaint SKILLED NURSING LABWORK MONTHLY EXAM Chief Complaint SKILLED NURSING LABWORK NEW SYMPTOMS/CONCERN LABWORK MONTHLY EXAM Chief Complaint MONTHLY EXAM MONTH EXAM SKILLED NURSING LAB WORK LEFT KNEE Rm 5 xray Reason for Visit Pes anserinus bursit is of left knee Osteoarthritis of left knee Chief Complaint SKILLED NURSING LAB WOR K LEFT KNEE Rm 5 xray NEW CONCERN/PROBLEM LEFT KNEE room 1 MONTHLY EXAM SKILLED NURSING LABWORK MONTHLY Reason for Visit Pes anserinus bursit is of left knee Osteoarthritis of left knee Pes anserinus bursitis of left knee Osteoarthritis of left knee Chief Complaint NEW CONCERN/PROBLEM LEFT KNEE room 1 MONTHLY EXAM SKILLED NURSING LABWORK MONTHLY MONTHLY EXAM NEW PROBLEM SKILLED NURSING LABWORK Reason for Visit Pes anserinus bursit is of left knee Osteoarthritis of left knee Chief Complaint SKILLED NURSING LABWORK MONTHLY EXAM SKILLED NURSING LAB WORK MONTHLY EXAM NEW CONCERN left knee Reason for Visit Pes anserinus bursit is of left knee Osteoarthritis of left knee Chief Complaint LEFT KNEE RM 5 LABWORK LEFT KNEE LEFT KNEE LEFT KNEE MONTHLY VISIT MONTHLY EXAM SKILLED NURSING LAB WORK Reason for Visit Osteoarthritis of le ft knee Osteoarthritis of left knee Osteoarthritis of left knee Osteoarthritis of left knee Chief Complaint SKILLED NURSING LAB WOR K MONTHLY EXAM - MD MONTHLY EXAM SKILLED NURSING LAB WORK Chief Complaint MONTHLY EXAM MONTHLY EXAM MD SKILLED NURSING LAB WORK MONTHLY EXAM MONTHLY EXAM MD Chief Complaint Admit Date LABWORK August 16, 2024 5 :00am SKILLED NURSING LAB WORK September 16, 2024 5:00am MONTHLY EXAM September 20, 2024 7: 33pm LABWORK October 14, 2024 1 :00am SKILLED NURSING LAB WORK October 17, 2024 5:00am MONTHLY EXAM October 27, 2024 11:58am LABWORK November 14, 2024 5:00 am Chief Complaint Admit Date SKILLED NURSING LAB WORK September 16, 2024 5:00am MONTHLY EXAM September 20, 2024 7: 33pm LABWORK October 14, 2024 1 :00am SKILLED NURSING LAB WORK October 17, 2024 5:00am MONTHLY EXAM October 27, 2024 11:58am LABWORK November 14, 2024 5:00 am MONTHLY EXAM November 15, 2024 5:36 pm LABWORK December 14, 2024 5:00 am Chief Complaint Admit Date LABWORK October 14, 2024 1 :00am SKILLED NURSING LAB WORK October 17, 2024 5:00am MONTHLY EXAM October 27, 2024 11:58am LABWORK November 14, 2024 5:00 am MONTHLY EXAM November 15, 2024 5:36 pm LABWORK December 14, 2024 5:00 am LABWORK January 14, 2025 8:25am Chief Complaint Admit Date LABWORK October 14, 2024 1 :00am SKILLED NURSING LAB WORK October 17, 2024 5:00am MONTHLY EXAM October 27, 2024 11:58am LABWORK November 14, 2024 5:00 am MONTHLY EXAM November 15, 2024 5:36 pm LABWORK December 14, 2024 5:00 am SKILLED NURSING LAB WORK January 12, 2025 5:00 am LABWORK January 14, 2025 8:25am LABWORK January 18, 2025 5:00am Chief Complaint Admit Date LABWORK November 14, 2024 5:00 am MONTHLY EXAM November 15, 2024 5:36 pm LABWORK December 14, 2024 5:00 am Monthly Exam December 16, 2024 5:46 pm SKILLED NURSING LAB WORK January 12, 2025 5:00 am LABWORK January 14, 2025 8:25am LABWORK January 18, 2025 5:00am SKILLED NURSING LAB WORK January 23, 2025 5:0 0am Chief Complaint Admit Date LABWORK December 14, 2024 5:00 am Monthly Exam December 16, 2024 5:46 pm SKILLED NURSING LAB WORK January 12, 2025 5:00 am LABWORK January 14, 2025 8:25am LABWORK January 18, 2025 5:00am SKILLED NURSING LAB WORK January 23, 2025 5:0 0am MONTHLY EXAM January 31, 2025 4:00p m SKILLED NURSING LAB WORK February 13, 2025 5:0 0am LABWORK February 27, 2025 5:00 am Chief Complaint Admit Date LABWORK December 14, 2024 5:00 am Monthly Exam December 16, 2024 5:46 pm SKILLED NURSING LAB WORK January 12, 2025 5:00 am LABWORK January 14, 2025 8:25am LABWORK January 18, 2025 5:00am SKILLED NURSING LAB WORK January 23, 2025 5:0 0am MONTHLY EXAM January 31, 2025 4:00p m SKILLED NURSING LAB WORK February 13, 2025 5:0 0am MONTHLY EXAM February 23, 2025 9:45 am LABWORK February 27, 2025 5:00 am SKILLED NURSING LAB WORK March 06, 2025 3: 47pm SKILLED NURSING LAB WORK March 14, 2025 5:0 0am Chief Complaint Admit Date LABWORK December 14, 2024 5:00 am Monthly Exam December 16, 2024 5:46 pm SKILLED NURSING LAB WORK January 12, 2025 5:00 am LABWORK January 14, 2025 8:25am LABWORK January 18, 2025 5:00am SKILLED NURSING LAB WORK January 23, 2025 5:0 0am MONTHLY EXAM January 31, 2025 4:00p m SKILLED NURSING LAB WORK February 13, 2025 5:0 0am MONTHLY EXAM February 23, 2025 9:45 am LABWORK February 27, 2025 5:00 am NEW CONCERN March 06, 2025 3:00 pm SKILLED NURSING LAB WORK March 06, 2025 3: 47pm SKILLED NURSING LAB WORK March 14, 2025 5:0 0am Chief Complaint Admit Date SKILLED NURSING LAB WORK January 12, 2025 5:00 am LABWORK January 14, 2025 8:25am LABWORK January 18, 2025 5:00am SKILLED NURSING LAB WORK January 23, 2025 5:0 0am MONTHLY EXAM January 31, 2025 4:00p m SKILLED NURSING LAB WORK February 13, 2025 5:0 0am MONTHLY EXAM February 23, 2025 9:45 am LABWORK February 27, 2025 5:00 am NEW CONCERN March 06, 2025 3:00 pm SKILLED NURSING LAB WORK March 06, 2025 3: 47pm SKILLED NURSING LAB WORK March 14, 2025 5:0 0am New Concern March 20, 2025 4:08p m LABWORK April 14, 2025 5:0 0am Chief Complaint Admit Date SKILLED NURSING LAB WORK January 12, 2025 5:00 am LABWORK January 14, 2025 8:25am LABWORK January 18, 2025 5:00am SKILLED NURSING LAB WORK January 23, 2025 5:0 0am MONTHLY EXAM January 31, 2025 4:00p m SKILLED NURSING LAB WORK February 13, 2025 5:0 0am MONTHLY EXAM February 23, 2025 9:45 am LABWORK February 27, 2025 5:00 am NEW CONCERN March 06, 2025 3:00 pm SKILLED NURSING LAB WORK March 06, 2025 3: 47pm SKILLED NURSING LAB WORK March 14, 2025 5:0 0am Monthly Exam March 14, 2025 10:00 pm New Concern March 20, 2025 4:08p m LABWORK April 14, 2025 5:0 0am Chief Complaint Admit Date LABWORK January 18, 2025 5:00am SKILLED NURSING LAB WORK January 23, 2025 5:0 0am MONTHLY EXAM January 31, 2025 4:00p m SKILLED NURSING LAB WORK February 13, 2025 5:0 0am MONTHLY EXAM February 23, 2025 9:45 am LABWORK February 27, 2025 5:00 am NEW CONCERN March 06, 2025 3:00 pm SKILLED NURSING LAB WORK March 06, 2025 3: 47pm SKILLED NURSING LAB WORK March 14, 2025 5:0 0am Monthly Exam March 14, 2025 10:00 pm New Concern March 20, 2025 4:08p m LABWORK April 14, 2025 5:0 0am MONTHLY EXAM April 20, 2025 11: 08am Chief Complaint Admit Date SKILLED NURSING LAB WORK March 14, 2025 5:0 0am Monthly Exam March 14, 2025 10:00 pm New Concern March 20, 2025 4:08p m LABWORK April 14, 2025 5:0 0am MONTHLY EXAM April 20, 2025 11: 08am SKILLED NURSING LAB WORK May 16 5:00am SKILLED NURSING LAB WORK May 22 5:00am SKILLED NURSING LAB WORK June 19, 2025 4:42am Confused June 28, 2025 7 :22pm Additional Source Comments INFORMATION SOURCE (unrecogn ized section and content) DATE CREATED AUTHOR 10/03/2019 [facility] ([place]) DATE CREATED AUTHOR AUTHOR'S ORGANIZ ATION 07/13/2025 [facility] Goals (unrecognized section and [...] Primary Care Provider Active Zeina Balbuena NP, CORK WIRER-C Attending Provider Active Team Status: Inactive Member [...] Care Provider Active Start: September 16, 2024 eYsika VICENTE MD Attending Provider Active Start: September [...] 2024 End: December 16, 2024 Zeina Balbuena NP CORK WIRER-C Attending Provider Active Start: December 16, 2024 [...] End: December 16, 2024 Zeina Balbuena NP, NP-C Attending Provider Active Start: December 16, 2024 [...] End: March 06, 2025 Zeina Balbuena NP CORK WIRER-C Attending Provider Active Start: March 06, 2025 [...] 2025 End: March 06, 2025 Zeina Balbuena CORK WIRER, CORK WIRER-C Attending Provider Active Start: March 06, 2025 End: March 06, 2025 Team Status: Inactive Member Role/Relationship Status Dates Dr. Yesika Faust MD Primary Care Provider Active Start: March 20, 2025 End: March 20, 2025 Zeina Balbuena CORK WIRER, CORK WIRER-C Attending Provider Active Start: March 20, 2025 [...] 2025 End: March 20, 2025 Zeina Balbuena CORK WIRER, CORK WIRER-C Attending Provider Active Start: March 20, 2025 [...] Care Provider Active Start: January 23, 2025 ADRIANE BeauchampC Attending Provider Active Start: January 23, 2025 [...] End: March 06, 2025 Zeina Balbuena NP CORK WIRER-C Attending Provider Active Start: March 06, 2025 [...] 2025 End: March 20, 2025 Zeina Balbuena CORK WIRER, CORK WIRER-C Attending Provider Active Start: March 20, 2025 [...] Attending Provider Active Start: May 16, 2025 Team Status: Active Member Role/Relationship Status Dates Dr. Yesika Faust MD Primary care physician Activ e Team Status: Active Member Role/Relationship Status Dates Dr. Yesika Faust MD Primary care physician Activ e Start: March 14, 2025 Yesika VICENTE MD Attending physician Active Start: March 14, 2025 Team Status: Inactive Member Role/Relationship Status Dates Dr. Yesika Faust MD Primary care physician Activ e Start: March 14, 2025 End: March 14, 2025 Dr. Yesika Faust MD Attending physician Active Start: March 14, 2025 End: March 14, 2025 Team Status: Inactive Member Role/Relationship Status Dates Dr. Yesika Faust MD Primary care physician Activ e Start: March 20, 2025 End: March 20, 2025 Zeina Balbuena CORK WIRER, CORK WIRER-C Attending physician Active Start: March 20, 2025 End: March 20, 2025 Team Status: Active Member Role/Relationship Status Dates Dr. Yesika Faust MD Primary care physician Activ e Start: April 14, 2025 Yesika VICENTE MD Attending physician Active Start: April 14, 2025 Team Status: Inactive Member Role/Relationship Status Dates Dr. Yesika Faust MD Primary care physician Activ e Start: April 20, 2025 End: April 20, 2025 Miguel YATES PA Attending physician Active S tart: April 20, 2025 End: April 20, 2025 Team Status: Active Member Role/Relationship Status Dates Dr. Yesika Faust MD Primary care physician Activ e Start: May 16, 2025 Yesika VICENTE MD Attending physician Active Start: May 16, 2025 Team Status: Active Member Role/Relationship Status Dates Dr. Yesika Faust MD Primary care physician Activ e Start: May 22, 2025 Yesika VICENTE MD Attending physician Active Start: May 22, 2025 Team Status: Active Member Role/Relationship Status Dates Dr. Yesika Faust MD Primary care physician Activ e Start: June 03, 2025 Yesika VICENTE MD Attending physician Active Start: June 03, 2025 Team Status: Active Member Role/Relationship Status Dates Dr. Yesika Faust MD Primary care physician Activ e Start: June 19, 2025 Yesika VICENTE MD Attending physician Active Start: June 19, 2025 Yesika VICENTE MD Referring Provider Active Start: June 19, 2025 Team Status: Inactive Member Role/Relationship Status Dates Dr. Yesika Faust MD Primary care physician Activ e Start: June 28, 2025 End: June 28, 2025 Aric Oneil MD Attending physician Active Sta rt: June 28, 2025 End: June 28, 2025 Aric Oneil MD Emergency Department Physician Active Start: June 28, 2025 End: June 28, 2025 FOR RECORDS PERTAINING TO PATIENTS WHO [...] BE BASED ON THE PRIMARY CLINICAL RECORDS. [facility]. provides no warranty or guarantee of the accuracy or completeness of information in this document.
[2025-07-17 07:49] LABS: Hematocrit 41.7 % (37-47); Hemoglobin 13.1 g/dL (12.0-15.0); Immature Granulocytes Count 0.030 X10^3/uL (0.0-0.0); Mean Corp Hgb Conc 31.4 g/dL (32-36); Mean Corpuscular Volume 101.7 fL (81-99); Mean Platelet Vol. 10.2 fl (6.2-12.0); NRBC Flagged by Analyzer 0 % (0-5); Platelet Count 219 K/mm3 (150-450); RBC Distribution Width CV 13.3 % (11.6-14.6); RBC Distribution Width SD 49.8 fl (35.1-43.9); Red Blood Count 4.10 M/mm3 (4.2-5.4); White Blood Count 7.6 K/mm3 (4.4-11.0)
[2025-07-17 08:08] LABS: Anion Gap 10 (5-15); BUN 17 mg/dL (4-19); BUN/Creat Ratio 25.8 RATIO (10-20); Calcium,Total 9.2 mg/dL (7.6-11.0); Carbon Dioxide 25.3 mmol/L (21.0-32.0); Chloride 108 mmol/L (98-108); Glucose 92 mg/dL (70-99); Potassium 4.3 mmol/L (3.3-5.1)
== END ==
LOC: OLS.WHLCAR 05:00
PROVIDERS: PCP Internal Medicine; Visit Provider Internal Medicine
DX: R53.82 Chronic fatigue, unspecified (principal); G30.9 Alzheimer's disease, unspecified; I10 Essential (primary) hypertension; I25.10 Atherosclerotic heart disease of native coronary artery without angina pectoris
CPT/HCPCS: 36415; 80048; 85025

== ENCOUNTER 2025-08-05 11:28 | Emergency (ER) | payer MEDICARE, MEDICAID, SELFPAY ==
[2025-08-05 11:30] VITALS: BP 124/63; PULSE 73; RESP 16; TEMP 36.3; O2SAT 96; BMI 25.0
--- OUTSIDE RECORDS SUMMARY | 2025-08-05 12:04 | XMS RPT_ITS | CCD ---
Author Organization [facility] Care Team Providers Care Tank Operator Name Role Phone Hung Davison Neo Unavailable Unavailable NicoleMirella jiang Unavailable Armando Gutierrez Unavailable [facility], Obi [facility] Unavailable Art Curry Unavailable Alba Sargent Unavailable Amita Antoine Unavailable [phone] Dick Morris Unavailable [facility] Unavailable Kya Valdivia Unavailable Joe Skinner Unavailable Alyson Dixon Unavailable Unavailable Unavailable Unavailable TRUDY Chambers Attending Provider [phone] Dr. Cl Tsang Primary Care Provider MD Cl Tsang Referring Provider Unavailable Dr. Thom Montiel Attending Provider TRUDY Chambers Referring Provider [phone] Esha [employer], KINDRA-Lio Pastrana Attending Provider Dr. Cl Williamson Primary Care Provider Dr. Cl Tsang Primary Care Provider Esha D[employer] GUID[employer]OV[employer], DIP GUIDER STOVES-C Zeina Attending Provider Dr. Cl Williamson Primary Care Provider Esha D[employer], DIP GUIDER STOV[employer]-C Zeina Attending Provider Dr. Cl Williamson Referring Provider TRUDY Chambers Attending Provider [phone] Dr. Thom Montiel Attending Provider [phone] Cl Tsang Primary Care Provider Dr. Cl Tsang Referring Provider TRUDY Chambers Attending Provider [phone] Dr. Thom Montiel Attending Provider [facility] D[employer]OV[employer], DIP GUIDER STOVES-C Zeina Attending Provider Dr. Tomas Humphrey Attending Provider [phone] Dr. Yesika Faust Attending Provider [phone] Dr. Cl Tsang Primary Care Provider Dr. Cl Tsang Referring Provider Dr. Thom Montiel Attending Provider [phone] Cl Tsang Primary Care Provider Esha [employer], DIP GUIDER STOVES-C Zeina Attending Provider Dr. Yesika Reed Attending Provider [phone] Dr. Cl Tsang Referring Provider TRUDY Chambers Attending Provider [phone] Dr. Cl Tsang Primary Care Provider Dr. Cl Tsang Referring Provider TRUDY Chambers Attending Provider [phone] Dr. Thom Montiel Attending Provider [phone] [facility] [employer], DIP GUIDER STOVES-C Zeina Attending Provider Dr. Yesika Reed Attending Provider [phone] Dr. Cl Tsang Primary Care Provider Dr. Yesika Faust Attending Provider [phone] TRUDY Parada Attending Provider [phone] Dr. Cl Tsang Primary Care Provider Dr. Yesika Faust Attending Provider [phone] [place] [employer]-C Carmen Attending Provider [phone] Christianne GE, Dr. Napoles Primary Care Provider Yesika Fauts MD Attending Provider Carlotta Faust MD, Dr. Napoles Attending Provider [phone] Miguel Parada Attending Provider [phone] Christianne GE, Dr. Napoles Primary Care Provider Yesika Faust MD Attending Provider Carlotta Faust MD, Dr. Napoles Primary Care Provider Yesika Faust MD Attending Provider Carlotta Faust MD, Dr. Napoles Attending Provider [phone] Esha D[employer]OV[employer]-CZeina Attending Provider [phone] Christianne GE, Dr. Napoles Primary Care Provider Yesika Faust MD Attending Provider Carlotta Balbuena D[employer]OV[employer]-CZeina Attending Provider Christianne GE, Dr. Napoles Primary Care Provider Yesika Faust MD Attending Provider Carlotta Faust MD, Dr. Napoles Attending Provider [phone] Miguel Parada Attending Provider [phone] Christianne GE, Dr. Napoles Primary Care Provider Yesika Faust MD Attending Provider Unavailchristian Balbuena D[employer]-CZeina Attending Provider Chirstianne GE, Dr. Napoles Primary Care Provider Yesika Faust MD Attending Provider Carlotta Faust MD, Dr. Napoles Primary Care Physician Yesika Faust MD Attending Physician Adrian Faust MD, Dr. Napoles Attending Physician [phone] Esha [employer]-CZeina Attending Physician Miguel Parada Attending Physician Christianne GE, Yesika Referring Provider Carlotta Oneil MD, Aric Attending Physician [phone] Aric Oneil MD Emergency Department Physician Oleghe OLS, Efewongbe Attending Unavailabl e Oleghe, [...] Care Unavailable Oleghe, Efewongbe Primary Care Unavailable Clarice, Aric Attending Unavailable Oleghe OLS, Efewongbe Attending Unavailabl [...] e Oleghe, Efewongbe Primary Care Unavailable [place] [employer], Zeina Attending Unavailable Oleghe, Efewongbe Primary Care [...] Attending Unavailable Oleghe, Efewongbe Primary Care Unavailable Tickrobina DIP GUIDER STOVESZeina Attending Unavailable Oleghe, Efewongbe Primary Care Unavailable Oleghe, Efewongbe Attending Unavailable [place] [employer], Zeina Attending Unavailable Oleghe, Efewongbe Primary Care Unavailable Oleghe, Efewongbe Attending Unavailable Oleghe, Efewongbe Primary Care Unavailable Oleghe, Efewongbe Primary Care Unavailable Oleghe, Efewongbe Attending Unavailable Oleghe, Efewongbe Primary Care Unavailable Miguel Parada Attending Unavailable [place] D[employer], Zeina Attending Unavailable Oleghe, Efewongbe Primary Care Unavailable Esha DIP GUIDER STOVESZeina Attending Unavailable Oleghe, Efewongbe Primary Care Unavailable [...] HYDROcodone; Translations: [VICODIN] allergy to substance 05-08-20 [employer] Work Phone: (20 sources) HYDROcodone; Translations: [HYDROCODONE] allergy to substance 12-30-19 12 Other [facility] Work Phone: (1 source) Sulfonamides (Antibiotic) drug allergy [facility] Work Phone: (18 sources) Acetaminophen / [...] Phone: (19 sources) Acetaminophen Drug Allergy 09-01-20 Other [facility] (19 sources) Sulfamethoxazole Drug Allergy 09-01-20 22 [facility] (1 source) Acetaminophen Drug Allergy 06-28-20 25 [facility] Repository (1 source) Sulfamethoxazole Drug Allergy 06-28-20 25 [facility] Repository Medications Current Medications Medication Drug [...] TABS One tablet by mouth daily ASPIRIN [id number] Kaelyn Ellis RN Start: 11-12-2011 End: 11-12-2011 ASPIRIN LOW DOSE, 81MG (Oral Tablet Delayed Release) [address] qd for 0 days Quantity: 30 {Tablet_DR} Refills: 0 Ordered: 12-Nov-2011 Mirella Mccracken DO, DO, Kathleen Start : 12-Nov-2011 End : 12-Nov-2011 Discontinued End: 04-12-2012 take 1 tablet by mouth once daily ASPIRIN EC 81 MG TBEC One tablet by mouth daily ASPIRIN [id number] Jose Vargas MD brexpiprazole 1 mg oral [...] hand docusate sodium 50 mg / sennosides, longterm 8.6 mg oral tablet (12 sources) Start: [...] One tablet by mouth daily DULOXETINE HCL [id number] Jose Vargas MD Comment on above: substitute generic p lease LORazepam 1 mg oral tablet (20 sources) Benzodiazepine Start: 07-05-2025 take 1 tablet by mouth once daily Start: 06-29-2025 take 1 tablet by jeffry twice daily Start: 06-29-2025 End: 07-05-2025 take [...] 2025 12:00am Complies with drug therapy Vit C,W-Un-Tszgb-Lute in-Zeaxan (10 sources) Start: 05-13-2019 Vit C,P-Oj-Jbkxu-Lut ein-Zeaxan Active 1 EACH PO DAILY May 13, 2019 9:27am Start: 05-13-2019 End: 05-21-2023 Vit C,Z-Vr-Rbqom-Lutein-Zeax an Discontinued 1 EACH PO DAILY May 13, 2019 12:00am May 21, 2023 10:07am Start: 05-13-2019 End: 05-21-2023 Vit C,R-Jl-Yugcb-Lutein-Zeax an Discontinued 1 EACH PO DAILY May 12, 2019 11:00pm May 21, 2023 9:07am Start: 05-13-2019 Vit C,E-Zn-District Superintendent [id number]-[id number] Active 1 EACH PO DAILY May 12, 2019 11:00pm Start: 05-13-2019 Vit C,E-Zn-District Superintendent [id number] Active 1 EACH PO DAILY May 13, 2019 12:00am Completed/Discontinued Medications Medication Drug Class(es) Dates Sig (Normalized) Sig (Original) HYDROCODONE-ACETAM INOPHEN (2 sources) Opioid Agonist Start: 05-07-2016 take 1 tablet by mouth once daily at bedtime NORCO 5-325 MG TABS One tablet by mouth daily @ bedtime HYDROCODONE-ACETAMI NOPHEN [id number] Jose Vargas MD Start: 05-07-2016 End: 06-05-2017 take 1 tablet by mouth once daily at bedtime NORCO 5-325 MG TABS One tablet by mouth daily @ bedtime HYDROCODONE-ACETAMINOPHEN [id number] Jose Vargas MD acetaminophen 325 mg / [...] PERCOCET 5-325 MG TABS As needed OXYCODONE-ACETAMINOPHEN [id number] Kaelyn Ellis RN Start: 12-07-2013 PERCOCET 5-325 MG TABS As needed OXYCODONE-ACETAMINOPHEN [id number] Zaria Trevino PA-C Start: 12-07-2013 End: 11-05-2015 PERCOCET 5-325 MG TABS As ne eded OXYCODONE-ACETAMINOPHEN [id number] Zaria Trevino PA-C Start: 02-10-2013 PERCOCET 10-32 5 MG TABS As needed OXYCODONE-ACETAMINOPHEN [id number] Jose Vargas MD Comment on above: thirty [...] One tablet by mouth daily AMIODARONE HCL [id number] Jose Vargas MD Start: 11-25-2011 take 1 tablet by jeffry th twice daily AMIODARONE HCL 200 MG TABS One tablet by mouth twice daily AMIODARONE HCL [id number] Jose Vargas MD amoxicillin 500 mg oral [...] One tablet by mouth daily ATORVASTATIN CALCIUM [id number] Zaria Trevino PA-C Start: 11-25-2011 End: 04-06-2014 [...] tablet by mouth daily CALCIUM CARBONATE TABS [id number] Dick Morris DO calcium carbonate / vitamin D (2 sources) Start: 01-06-2012 take 1 tablet by mouth once daily CALCIUM + D 600-200 MG-UNIT TABS One tablet by mouth daily CALCIUM CARBONATE-VITAMIN D [id number] Jose Vargas MD Start: 01-06-2012 End: 04-12-2012 take 1 tablet by mouth once daily CALCIUM + D 600-200 MG-UNIT TABS One tablet by mouth daily CALCIUM CARBONATE-VITAMIN D [id number] Jose Vargas MD casanthranol 30 mg / [...] capsule by mouth every week VITAMIN D3, 25150XWOY (Oral Capsule) 1 (one) Capsule Capsule q week for 0 days Quantity: 4 {Capsule} Refills: 3 Ordered: 29-Nov-2015 Alyson Dixon LPN Start : 13-Jul-2014 End : 29-Nov-2015 Inactive Start: 01-06-2012 End: 04-12-2012 take 1 tablet by mouth once daily VITAMIN D 2000 UNIT TABS One tablet by mouth daily CHOLECALCIFEROL [id number] Jose Vargas MD ciprofloxacin 500 mg oral [...] for 7 days Refills: 0 Ordered: 15-Dec-2011 Nicole ANAND Mirella Vera DO Start : 26-Nov-2011 End : 03-Dec-2011 Inactive [...] One tablet by mouth daily CRANBERRY CAPS [id number] Zaria Trevino PA-C CRANBERRY-VITAMIN C, 84-20MG (Oral [...] 0.05 % OINT apply twice daily DESONIDE [id number] Dick Morris DO desoximetasone 2.5 mg/ml topical cream (20 sources) Corticosteroid Start: 05-07-2011 End: 06-05-2011 TOPICORT, 0.25% (External Cream) 1 Cream bid for 0 days Quantity: 1 {Cream} Refills: 0 Ordered: 05-Jun-2011 Alyson Dixon LPN Start : 07-May-2011 End : 05-Jun-2011 Inactive TOPICORT 0.25 % CREA apply twice daily DESOXIMETASONE [id number] Dick Morris DO End: 04-12-2012 TOPICORT 0.25 % CREA apply t wice daily DESOXIMETASONE 34829203079 Jose Vargas MD diazePAM 2 mg oral [...] tablet by mouth twice daily DIPHENHYDRAMINE HCL 31258180910 Mary Nolen RN ergocalciferol 29197 unt oral capsule (20 sources) Provitamin D2 Compound Start: 01-12-2009 End: 04-13-2014 take 1 capsule by mouth every week ERGOCALCIFEROL, 07524MNGM (Oral Capsule) 1 Capsule 2 x week for 0 days Quantity: 8 {Capsule} Refills: 3 Ordered: 13-Apr-2014 Alyson Dixon LPN Start : 12-Jan-2009 End : 13-Apr-2014 Inactive End: 01-06-2012 VITAMIN D (ERGOCALCIFEROL) 5 0000 UNIT CAPS one tablet twice a week ERGOCALCIFEROL [id number] Dick Morris DO escitalopram 10 mg oral [...] tablet by mouth three times daily GABAPENTIN [id number] Jose Vargas MD Start: 02-10-2013 End: 11-05-2015 take 1 tablet by mouth twice daily GABAPENTIN 600 MG TABS One tablet by mouth twice daily GABAPENTIN [id number] Zaria Trevino PA-C Start: 01-06-2012 take 1 tablet by jeffry th three times daily NEURONTIN 100 MG CAPS One tablet by mouth three times daily GABAPENTIN [id number] Jose Vargas MD hydrOXYzine hydrochloride 50 mg oral tablet (18 sources) Antihistamine Start: 05-08-2011 End: 06-05-2011 HYDROXYZINE HCL, 50MG (Oral Tablet) 1 Tablet q6-8 hrs prn itching for 0 days Quantity: 30 {Tablet} Refills: 0 Ordered: 05-Jun-2011 Alyson Dixon ELENA Start : 08-May-2011 End : 05-Jun-2011 Inactive [...] once daily ISOSORBIDE MONONITRATE ER 30 MG [id number] One tablet by mouth daily (Imdur) ISOSORBIDE MONONITRATE 15202718602 Zaria Trevino PA-C Start: 04-27-2013 take 1 tablet by jeffry th once daily IMDUR 60 MG [id number] One tablet by mouth daily ISOSORBIDE MONONITRATE [id number] Jose Vargas MD Start: 03-09-2013 take 1 tablet by jeffry th once daily IMDUR 30 MG [id number] One tablet by mouth daily ISOSORBIDE MONONITRATE [id number] Jose Vargas MD T-[id number]-H39-B6-B2 TAB S (2 sources) take 1 tablet by mouth once daily CEREFOLIN TABS One tablet by mouth daily S-[id number]-[id number]-B2 TABS [id number] Dick Morris DO End: 12-22-2011 take 1 tablet by mouth once daily CEREFOLIN TABS One tablet by mouth daily L-TNVLBOBCJHIJ-P63-B6-B2 TABS [id number] Mary Nolen RN lisinopril 5 mg oral tablet (20 sources) Angiotensin Converting Enzyme Inhibitor Start: 04-24-2014 End: 06-27-2014 take 1 tablet by mouth once daily LISINOPRIL 2.5 MG TABS One tablet by mouth daily LISINOPRIL [id number] Kaelyn Ellis RN Start: 12-07-2013 End: 04-10-2014 take 1 tablet by mouth once daily LISINOPRIL 5 MG TABS One tablet by mouth daily LISINOPRIL [id number] Jose Vargas MD Start: 04-27-2013 End: 11-05-2015 [...] TABS One tablet by mouth daily LUTEIN 53952548353 Zaria Trevino PA-C End: 07-08-2012 take 1 tablet by mouth once daily LUTEIN CAPS One tablet by mouth daily LUTEIN CAPS [id number] Dick Morris DO melatonin 3 mg / [...] TABS One tablet by mouth daily MELOXICAM 94951436844 Zaria Trevino PA-C metaxalone 800 mg oral [...] tablet by mouth twice daily METOPROLOL TARTRATE [id number] Jose Vargas MD Start: 03-11-2012 End: 04-06-2014 [...] tablet by mouth twice daily METOPROLOL TARTRATE [id number] Jose Vargas MD Multivitamin preparation (18 sources) End: 11-29-2015 MULTIVITAMIN (Oral Liquid) for 0 days Refills: 0 Ordered: 29-Nov-2015 Alyson Dixon LPN End : 29-Nov-2015 Inactive nitroglycerin 0.4 mg sublingual tablet (20 sources) Nitrate Vasodilator Start: 01-06-2012 End: 04-10-2014 NITROSTAT 0.4 MG SUBL 1 tablet under tongue every 5 min up to 3 X NITROGLYCERIN [id number] Jose Vargas MD Start: 12-26-2011 End: 11-29-2015 [...] CPDR One capsule by mouth daily OMEPRAZOLE [id number] Lextimi Munoz Start: 12-31-2011 End: 06-20-2013 PRILOSEC, 20MG (Oral Capsule Delayed Release) [address] qd for 0 days Quantity: 30 {Capsule_DR} Refills: 0 Ordered: 20-Jun-2013 FRANCI Castelan Start : 31-Dec-2011 End : 20-Jun-2013 Inactive End: 12-22-2011 take 1 tablet by mouth once daily PRILOSEC 10 MG CPDR One tablet by mouth daily OMEPRAZOLE [id number] Dick Morris DO oxyCODONE hydrochloride 5 mg [...] One tablet by mouth daily PANTOPRAZOLE SODIUM [id number] Jose Vargas MD pravastatin sodium 80 mg [...] Three tablets by mouth daily PREDNISONE TABS [id number] Mary Nolen RN take 3 tablets by mo [facility] once daily PREDNISONE TABS Three tablets by mouth daily PREDNISONE TABS 42131410614 Dick Morris DO rosuvastatin calcium 10 mg [...] One tablet by mouth daily ROSUVASTATIN CALCIUM 22633582260 Jose Vargas MD Comment on above: substitute generic Mail order. DOCUSATE SODIUM CAPS (2 sources) COLACE CAPS as n eeded DOCUSATE SODIUM CAPS [id number] Dick Morris DO End: 10-10-2014 COLACE CAPS as needed 10/10 DOCUSATE SODIUM CAPS [id number] Zaria Trevino PA-C 28 actuat teriparatide 0.02 [...] mouth once daily DETROL LA 4 MG [id number] One tablet by mouth daily TOLTERODINE TARTRATE [id number] Mary A Tamanna RN take 1 tablet by jeffry th once daily DETROL LA 4 MG [id number] One tablet by mouth daily TOLTERODINE TARTRATE 49556920081 Dick Morris DO traMADol hydrochloride 50 mg [...] mouth three times daily TRAMADOL HCL TABS [id number] Dick Morris DO End: 12-22-2011 take 1 tablet by mouth three times daily ULTRAM TABS One tablet by mouth three times daily TRAMADOL HCL TABS [id number] Mary Nolen RN Comment on above: [age]-- [...] : 01-Dec-2013 End : 06-Apr-2014 Inactive Vit C,V-Di-Qznhz-Lutein-Ze axan 1 EACH capsule (12 sources) Start: 019 End: take 1 capsule by mouth once daily Vit C,S-Tl-Fbldx-Lutein-Z eaxan 1 EACH capsule Discontinued 1 NMA PO DAILY May 13, 2019 12:00am May 21, 2023 10:07am CHOLECALCIFEROL (4 sources) Start: End: take 1 tablet by mouth once daily VITAMIN D 1000 UNIT TABS One tablet by mouth daily CHOLECALCIFEROL [id number] Zaria Trevino PA-C Start: 11-02-2015 take 1 tablet by jeffry th once daily VITAMIN D 1000 UNIT TABS One tablet by mouth daily CHOLECALCIFEROL 64680052900 Mary Nolen RN Start: 02-10-2013 End: 10-10-2014 take 1 tablet by mouth once daily VITAMIN D 1000 UNIT TABS One tablet by mouth daily CHOLECALCIFEROL 24082397654 Zaria Trevino PA-C Start: 02-10-2013 take 1 tablet by jeffry th once daily VITAMIN D 1000 UNIT TABS One tablet by mouth daily CHOLECALCIFEROL [id number] Jose Vargas MD Problems Active Problems Problem [...] disease (20 sources) Atherosclerotic heart disease of [place] coronary artery without angina pectoris; Translations: [Coronary [...] fatigue, unspecified; Translations: [Chronic fatigue, unspecified] Onset: 07-13-2025 Chronic Malignant neoplasm without specification of site [...] current use of drug therapy; Translations: [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] 11-23-2017 Episodic Other bone [...] (current) use of other medications; Translations: [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] Onset: 07-08-2013 Resolved: 05-11-2015 [...] p laced her on asa-- cardio at [place]- he said no more plavix ever- rec [...] p laced her on asa-- cardio at [place]- he said no more plavix ever- rec [...] Auto (Unsp spec) [#/Vol] 1.59 10*3/uL 0.83-4.51 [facility] Absolute neutrophil countOrd ered By: Aric Oneil on 06-28-2025 Neutrophils (Bld) [#/Vol] 2.8 10*3/uL 2.0-7.7 [facility] Anion gap in Serum or Plasma Ordered By: Aric Oneil on 06-28-2025 Anion gap [Moles/Vol] 9 mmol/L 01-26 [facility] Automated lymphocyte count a s percentage of total leukocytesOrdered By: Aric Oneil on 06-28-2025 Lymphocytes/100 WBC Auto (Unsp spec) 30.5 % 19-41 [facility] BUN/creatinine ratioOrdered By: Aric Oneil on 06-28-2025 Urea nitrogen/Creatinine [Mass ratio] 25.4 mg/mg High 07-03 [facility] Basic Metabolic Profile (BMP )on 06-28-2025 BUN/CRE 25.4 RATIO High 07-03 [facility] Comment on above: Performed By: #### L 100.0100, L500.2500 #### [facility] [address] [place], [address] Calcium [Mass/Vol] 9.4 mg/dL Normal 7.6-11.0 [facility] Comment on above: Performed By: #### L 100.0100, L500.2500 #### [facility] [address] [place], [address] Chloride [Moles/Vol] 103 mmol/L Normal 98-108 [facility] Comment on above: Performed By: #### L 100.0100, L500.2500 #### [facility] [address] [place], [address] CO2 [Moles/Vol] 28.7 mmol/L Normal 21.0-32.0 [facility] Comment on above: Performed By: #### L 100.0100, L500.2500 #### [facility] [address] [place], [address] Creatinine [Mass/Vol] 0.78 mg/dL Normal 0.70-1.20 [facility] Comment on above: Performed By: #### L 100.0100, L500.2500 #### [facility] [address] [place], [address] GAP 9 Normal 5-15 [facility] Comment on above: Performed By: #### L 100.0100, L500.2500 #### [facility] [address] [place], [address] GFR/1.73 sq M.predicted among non-blacks MDRD (S/P/Bld) [Vol rate/Area] 74 mL/min/{1.73_m2} Normal >60 [facility] Comment on above: Result Comment: mL/m in/1.73m2 CKD-EPI Creatinine Equation (2020) Performed By: #### L 100.0100, L500.2500 #### [facility] [address] [place], [address] Glucose [Mass/Vol] 129 mg/dL High 70-99 [facility] Comment on above: Performed By: #### L 100.0100, L500.2500 #### [facility] [address] [place], [address] Potassium [Moles/Vol] 4.3 mmol/L Normal 3.3-5.1 [facility] Comment on above: Performed By: #### L 100.0100, L500.2500 #### [facility] [address] [place], [address] Sodium [Moles/Vol] 141 mmol/L Normal 133-145 [facility] Comment on above: Performed By: #### L 100.0100, L500.2500 #### [facility] [address] [place], [address] Urea nitrogen [Mass/Vol] 20 mg/dL High 4-19 [facility] Comment on above: Performed By: #### L 100.0100, L500.2500 #### [facility] [address] [place], [address] Basophil percentageOrdered B y: Aric Oneil on 06-28-2025 Basophils/100 WBC (Bld) 0.6 % 0-1 [facility] Bilirubin Test strip Ql (U)O rdered By: Aric Oneil on 06-28-2025 Bilirubin Ql (U) Negative Negative [facility] CBC W/Diff, Automatedon 10- Absolute Lymph 1.59 X10 3/uL Normal 0.83-4.51 [facility] Comment on above: Performed By: #### L 100.0100, L500.2500 #### [facility] [address] [place], [address] Absolute Neut 2.8 X10 3/uL Normal 2.0-7.7 [facility] Comment on above: Performed By: #### L 100.0100, L500.2500 #### [facility] [address] [place], [address] Basophils/100 WBC (Bld) 0.6 % Normal 0-1 [facility] Comment on above: Performed By: #### L 100.0100, L500.2500 #### [facility] [address] [place], [address] Eosinophils/100 WBC (Bld) 4.6 % Normal 0-5 [facility] Comment on above: Performed By: #### L 100.0100, L500.2500 #### [facility] [address] [place], [address] Erythrocyte distribution width (RBC) [Ratio] 13.2 % Normal 11.6-14.6 [facility] Comment on above: Performed By: #### L 100.0100, L500.2500 #### [facility] [address] [place], [address] Hematocrit (Bld) [Volume fraction] 39.9 % Normal 37-47 [facility] Comment on above: Performed By: #### L 100.0100, L500.2500 #### [facility] [address] [place], [address] Hemoglobin (Bld) [Mass/Vol] 13.2 g/dL Normal 12.0-15.0 [facility] Comment on above: Performed By: #### L 100.0100, L500.2500 #### [facility] [address] [place], [address] IG% 0.200 Normal 0.0-0.9 [facility] Comment on above: Result Comment: IG% - Immature Granulocytes (promyelocytes, myelocytes and metamyelocytes) > 1% indicates that a LEFT SHIFT is Present. Performed By: #### L 100.0100, L500.2500 #### [facility] [address] [place], [address] Lymphocytes/100 WBC (Bld) 30.5 % Normal 19-41 [facility] Comment on above: Performed By: #### L 100.0100, L500.2500 #### [facility] [address] [place], [address] MCH (RBC) [Entitic mass] 31.6 pg Normal 27.0-32.0 [facility] Comment on above: Performed By: #### L 100.0100, L500.2500 #### [facility] [address] [place], [address] MCHC (RBC) [Mass/Vol] 33.1 g/dL Normal 32-36 [facility] Comment on above: Performed By: #### L 100.0100, L500.2500 #### [facility] [address] [place], [address] MCV (RBC) [Entitic vol] 95.5 fL Normal 81-99 [facility] Comment on above: Performed By: #### L 100.0100, L500.2500 #### [facility] [address] [place], [address] Monocytes/100 WBC (Bld) 10.3 % High 0-10 [facility] Comment on above: Performed By: #### L 100.0100, L500.2500 #### [facility] [address] [place], [address] Neutrophils/100 WBC (Bld) 53.8 % Normal 47-70 [facility] [facility] Comment on above: Performed By: #### L 100.0100, L500.2500 #### [facility] [address] [place], [address] Nucleated RBC (Bld) [#/Vol] 0 10*3/uL Normal 0-5 [facility] Comment on above: Performed By: #### L 100.0100, L500.2500 #### [facility] [address] [place], [address] Platelet mean volume (Bld) [Entitic vol] 10.2 fL Normal 6.2-12.0 [facility] Comment on above: Performed By: #### L 100.0100, L500.2500 #### [facility] [address] [place], [address] Platelets (Bld) [#/Vol] 219 10*3/uL Normal 150-450 [facility] Comment on above: Performed By: #### L 100.0100, L500.2500 #### [facility] [address] [place], [address] RBC (Bld) [#/Vol] 4.18 10*6/uL Low 4.2-5.4 [facility] Comment on above: Performed By: #### L 100.0100, L500.2500 #### [facility] [address] [place], [address] RDW SD 46.7 fl High 35.1-43.9 [facility] Comment on above: Performed By: #### L 100.0100, L500.2500 #### [facility] [address] [place], [address] WBC (Bld) [#/Vol] 5.2 10*3/uL Normal 4.4-11.0 [facility] Comment on above: Performed By: #### L 100.0100, L500.2500 #### [facility] [address] [place], [address] Carbon dioxide, total [Moles /volume] in Central venous bloodOrdered By: Aric Oneil on 06-28-2025 CO2 [Moles/Vol] 28.7 mmol/L 21.0-32.0 [facility] Chloride assayOrdered By: Nathanael Oneil on 06-28-2025 Chloride [Moles/Vol] 103 mmol/L 98-108 [facility] Emergency Department Summary on 06-28-2025 Emergency Department Summary [facility] Medical Records Department [address] [place] [address] Emergency Department Summary 06/28/25 MR#: [id number] Acct: [id number] Name: AGUSTIN GARCIA Rep #: [id number] : 1940 85 From: Aric Oneil MD PCP: Dr. Yesika Faust MD Status:REG ER Location: ED HPI History of Present Illness Chief Complaint: Confusion Narrative Narrative: 85-year-old female past medical history of dementia with agitation presents from [facility] after being combative with staff. Patient denies any fevers or chills, no nausea or vomiting, denies that she is in pain anywhere. She had not been combative with squad or staff here as of yet. On review of her paperwork, she is DO NOT RESUSCITATE [facility] arrest. [facility] Medical History Dyspnea Intermittent claudication Shortness of [...] mg intravenously and discharged back to the long-term facility. I do not feel that she requires observation or admission as she has a history of dementia with agitation. Disposition is discharged home in stable condition. History Record Review Discussion w/independent historian: Patient Additional rec (more content not included)... Normal [facility] Eosinophil percentageOrdered By: Aric Oneil on 06-28-2025 Eosinophils/100 WBC (Bld) 4.6 % 0-5 [facility] Erythrocyte distribution wid th ratioOrdered By: Aric Oneil on 06-28-2025 Erythrocyte distribution width (RBC) [Ratio] 13.2 % 11.6-14.6 [facility] Erythrocyte distribution wid th standard deviationOrdered By: Aric Oneil on 06-28-2025 Erythrocyte distribution width (RBC) [Ratio] 46.7 fl High 35.1-43.9 [facility] Glomerular filtration rate ( GFR) estimation/1.73 sq m using serum, plasma, or whole bOrdered By: Aric Oneil on 06-28-2025 GFR/1.73 sq M.predicted among non-blacks MDRD (S/P/Bld) [Vol rate/Area] 74 mL/min/{1.73_m2} >60 [facility] Comment on above: mL/min/1.73m2 CKD-EP I Creatinine Equation (2020) Hematocrit Auto (Bld) [Volum e fraction]Ordered By: Aric Oneil on 06-28-2025 Hematocrit (Bld) [Volume fraction] 39.9 % 37-47 [facility] Hemoglobin measurementOrdere d By: Aric Oneil on 06-28-2025 Hemoglobin (Bld) [Mass/Vol] 13.2 g/dL 12.0-15.0 [facility] Immature granulocytes/100 WB C Auto (Bld)Ordered By: Aric Oneil on 06-28-2025 Immature granulocytes/100 WBC (Bld) 0.200 % 0.0-0.9 [facility] Comment on above: IG% - Immature Granu locytes (promyelocytes, myelocytes and metamyelocytes) > 1% indicates that a LEFT SHIFT is Present. Ketones Test strip Ql (U)Ord ered By: Aric Oneil on 06-28-2025 Ketones Ql (U) Negative Negative [facility] MCV (mean corpuscular volume ) determinationOrdered By: Aric Oneil on 06-28-2025 MCV (RBC) [Entitic vol] 95.5 fL 81-99 [facility] Mean corpuscular hemoglobin (MCH) determinationOrdered By: Aric Oneil on 06-28-2025 MCH (RBC) [Entitic mass] 31.6 pg 27.0-32.0 [facility] Mean corpuscular hemoglobin concentration (MCHC) determinationOrdered By: Aric Oneil on 06-28-2025 MCHC (RBC) [Mass/Vol] 33.1 g/dL 32-36 [facility] Mean platelet volume determi nationOrdered By: Aric Oneil on 06-28-2025 Platelet mean volume (Bld) [Entitic vol] 10.2 fL 6.2-12.0 [facility] Microscopic analysis of urin e for red blood cells (RBC)Ordered By: Aric Oneil on 06-28-2025 Microscopic analysis of urine for red blood cells (RBC) 0-5 SEEN /hpf 0-5 [facility] Monocyte percentageOrdered B y: Aric Oneil on 06-28-2025 Monocytes/100 WBC (Bld) 10.3 % High 0-10 [facility] Mucus LM Ql (Urine sed)Order ed By: Aric Oneil on 06-28-2025 Mucus Ql (Urine sed) 0 SEEN /hpf [facility] Neutrophil percentageOrdered By: Aric Oneil on 06-28-2025 Neutrophils/100 WBC (Bld) 53.8 % 47-70 [facility] Nitrite Test strip Ql (U)Ord ered By: Aric Oneil on 06-28-2025 Nitrite Ql (U) Negative Negative [facility] Nucleated red blood cell per centageOrdered By: Aric Oneil on 06-28-2025 Nucleated RBC/100 WBC (Bld) [Ratio] 0 % 0-5 [facility] Platelet countOrdered By: Nathanael Oneil on 06-28-2025 Platelets (Bld) [#/Vol] 219 10*3/uL 150-450 [facility] Potassium measurement (mass/ volume)Ordered By: Aric Oneil on 06-28-2025 Potassium (Unsp spec) [Mass/Vol] 4.3 mmol/L 3.3-5.1 [facility] Protein Test strip Ql (U)Ord ered By: Aric Oneil on 06-28-2025 Protein Ql (U) 15 mg/dl High Negative [facility] RBC Auto (Bld) [#/Vol]Ordere d By: Aric Oneil on 06-28-2025 RBC (Bld) [#/Vol] 4.18 10*6/uL Low 4.2-5.4 [facility] Serum creatinine measurement (mass/volume)Ordered By: Aric Oneil on 06-28-2025 Creatinine [Mass/Vol] 0.78 mg/dL 0.70-1.20 [facility] Serum glucose measurement (m ass/volume)Ordered By: Aric Oneil on 06-28-2025 Glucose [Mass/Vol] 129 mg/dL High 70-99 [facility] Serum or plasma calcium madi urement (mass/volume)Ordered By: Aric Oneil on 06-28-2025 Calcium [Mass/Vol] 9.4 mg/dL 7.6-11.0 [facility] Serum or plasma urea nitroge n measurement (mass/volume)Ordered By: Aric Oneil on 10-15-2025 Urea nitrogen [Mass/Vol] 20 mg/dL High 4-19 [facility] Sodium levelOrdered By: Aric Oneil on 06-28-2025 Sodium [Moles/Vol] 141 mmol/L 133-145 [facility] Squamous epithelial cells de tection in urine sediment by light microscopyOrdered By: Aric Oneil on 06-28-2025 Epithelial cells.squamous LM Ql (Urine sed) 0 SEEN /hpf 5-10 [facility] Urinalysis, Completeon 06-28 RBC 0-5 SEEN Normal 0-5 [facility] Comment on above: Order Comment: YANCI CTOR TO SPECIFY Performed By: #### L 400.0001 #### [facility] [address] [place], [address] WBC 0-5 SEEN Normal 0-5 [facility] Comment on above: Order Comment: YANCI CTOR TO SPECIFY Performed By: #### L 400.0001 #### [facility] [address] [place], [address] BACTERIA 0 SEEN Normal None Seen [facility] Comment on above: Order Comment: YANCI CTOR TO SPECIFY Performed By: #### L 400.0001 #### [facility] [address] [place], [address] EPI,SQUAMOUS 0 SEEN Normal 5-10 [facility] Comment on above: Order Comment: YANCI CTOR TO SPECIFY Performed By: #### L 400.0001 #### [facility] [address] [place], [address] Mucus Ql (Urine sed) 0 SEEN Normal [facility] Comment on above: Order Comment: YANCI CTOR TO SPECIFY Performed By: #### L 400.0001 #### [facility] [address] [place], [address] Urine clarityOrdered By: Pushpa Oneil on 06-28-2025 Clarity (U) Clear Clear [facility] Urine color determinationOrd ered By: Aric Oneil on 06-28-2025 Color (U) Yellow Yellow [facility] Urine glucose detectionOrder ed By: Aric Oneil on 06-28-2025 Glucose Ql (U) Normal mg/dl Normal [facility] Urine leukocyte esterase det ection by dipstickOrdered By: Aric Oneil on 06-28-2025 Leukocyte esterase Test strip Ql (U) Negative Negative [facility] Urine pHOrdered By: Aric vasquez on 06-28-2025 pH (U) 6.5 [pH] 5.0 - 8.0 [facility] Urine sediment bacteria coun t by microscopy (number/high power field)Ordered By: Aric Oneil on 06-28-2025 Bacteria LM.HPF (Urine sed) [#/Area] 0 /[HPF] None Seen [facility] Urine specific gravity measu rementOrdered By: Aric Oneil on 06-28-2025 Specific gravity (U) [Rel density] 1.015 1.002-1.03 0 [facility] Urine urobilinogen measureme ntOrdered By: Aric Oneil on 06-28-2025 Urobilinogen Ql (U) Normal mg/dl Normal [facility] White blood cell (WBC) count Ordered By: Aric Oneil on 06-28-2025 WBC (Bld) [#/Vol] 5.2 10*3/uL 4.4-11.0 [facility] White blood cell countOrdere d By: Aric Oneil on 06-28-2025 White blood cell count 0-5 SEEN /hpf 0-5 [facility] Absolute lymphocyte countOrd ered By: Yesika Faust on 06-19-2025 Lymphocytes Auto (Unsp spec) [#/Vol] 2.09 10*3/uL 0.83-4.51 [facility] Absolute neutrophil countOrd ered By: Yesika Faust on 06-19-2025 Neutrophils (Bld) [#/Vol] 2.4 10*3/uL 2.0-7.7 [facility] Anion gap in Serum or Plasma Ordered By: Yesika Faust on 06-19-2025 Anion gap [Moles/Vol] 11 mmol/L 01-26 [facility] Automated lymphocyte count a s percentage of total leukocytesOrdered By: Yesika Faust on 06-19-2025 Lymphocytes/100 WBC Auto (Unsp spec) 38.7 % 19-41 [facility] BUN/creatinine ratioOrdered By: Yesika Faust on 06-19-2025 Urea nitrogen/Creatinine [Mass ratio] 28.8 mg/mg High 10-20 [facility] Basophil percentageOrdered B y: Yesika Faust on 06-19-2025 Basophils/100 WBC (Bld) 0.6 % 0-1 [facility] Carbon dioxide, total [Moles /volume] in Central venous bloodOrdered By: ky Faust on 06-19-2025 CO2 [Moles/Vol] 25.4 mmol/L 21.0-32.0 [facility] Chloride assayOrdered By: Tad Faust on 06-19-2025 Chloride [Moles/Vol] 106 mmol/L 98-108 [facility] Eosinophil percentageOrdered By: Yesika Faust on 06-19-2025 Eosinophils/100 WBC (Bld) 7.0 % High 0-5 [facility] Erythrocyte distribution wid th ratioOrdered By: ky Faust on 06-19-2025 Erythrocyte distribution width (RBC) [Ratio] 13.3 % 11.6-14.6 [facility] Erythrocyte distribution wid th standard deviationOrdered By: [facility] Fa[facility] on 06-19-2025 Erythrocyte distribution width (RBC) [Ratio] 46.5 fl High 35.1-43.9 [facility] Glomerular filtration rate ( GFR) estimation/1.73 sq m using serum, plasma, or whole bOrdered By: Yesika Faust on 06-19-2025 GFR/1.73 sq M.predicted among non-blacks MDRD (S/P/Bld) [Vol rate/Area] 91 mL/min/{1.73_m2} >60 [facility] Comment on above: mL/min/1.73m2 CKD-EP I Creatinine Equation (2020) Hematocrit Auto (Bld) [Volum e fraction]Ordered By: Yesika Faust on 06-19-2025 Hematocrit (Bld) [Volume fraction] 38.1 % 37-47 [facility] Hemoglobin measurementOrdere d By: Yesika Faust on 06-19-2025 Hemoglobin (Bld) [Mass/Vol] 12.9 g/dL 12.0-15.0 [facility] Immature granulocytes/100 WB C Auto (Bld)Ordered By: Yesika Faust on 06-19-2025 Immature granulocytes/100 WBC (Bld) 0.200 % 0.0-0.9 [facility] Comment on above: IG% - Immature Granu locytes (promyelocytes, myelocytes and metamyelocytes) > 1% indicates that a LEFT SHIFT is Present. MCV (mean corpuscular volume ) determinationOrdered By: Yesika Faust on 06-19-2025 MCV (RBC) [Entitic vol] 95.0 fL 81-99 [facility] Mean corpuscular hemoglobin (MCH) determinationOrdered By: Yesika Faust on 06-19-2025 MCH (RBC) [Entitic mass] 32.2 pg High 27.0-32.0 [facility] Mean corpuscular hemoglobin concentration (MCHC) determinationOrdered By: Yesika Faust on 06-19-2025 MCHC (RBC) [Mass/Vol] 33.9 g/dL 32-36 [facility] Mean platelet volume determi nationOrdered By: Yesika Faust on 06-19-2025 Platelet mean volume (Bld) [Entitic vol] 10.8 fL 6.2-12.0 [facility] Monocyte percentageOrdered B y: Yesika Faust on 06-19-2025 Monocytes/100 WBC (Bld) 9.1 % 0-10 [facility] Neutrophil percentageOrdered By: Yesika Faust on 06-19-2025 Neutrophils/100 WBC (Bld) 44.4 % Low 47-70 [facility] Nucleated red blood cell per centageOrdered By: Yesika Faust on 06-19-2025 Nucleated RBC/100 WBC (Bld) [Ratio] 0 % 0-5 [facility] Platelet countOrdered By: Tad Faust on 06-19-2025 Platelets (Bld) [#/Vol] 193 10*3/uL 150-450 [facility] Potassium measurement (mass/ volume)Ordered By: Yesika Fasut on 06-19-2025 Potassium (Unsp spec) [Mass/Vol] 3.9 mmol/L 3.3-5.1 [facility] RBC Auto (Bld) [#/Vol]Ordere d By: Yesika Faust on 06-19-2025 RBC (Bld) [#/Vol] 4.01 10*6/uL Low 4.2-5.4 [facility] Serum creatinine measurement (mass/volume)Ordered By: Yesika Faust on 06-19-2025 Creatinine [Mass/Vol] 0.51 mg/dL Low 0.70-1.20 [facility] Serum glucose measurement (m ass/volume)Ordered By: Yesika Faust on 06-19-2025 Glucose [Mass/Vol] 91 mg/dL 70-99 [facility] Serum or plasma calcium madi urement (mass/volume)Ordered By: Yesika Faust on 06-19-2025 Calcium [Mass/Vol] 9.2 mg/dL 7.6-11.0 [facility] Serum or plasma urea nitroge n measurement (mass/volume)Ordered By: Yesika Faust on 06-19-2025 Urea nitrogen [Mass/Vol] 15 mg/dL 4-19 [facility] Sodium levelOrdered By: Jed Faust on 06-19-2025 Sodium [Moles/Vol] 142 mmol/L 133-145 [facility] White blood cell (WBC) count Ordered By: Yesika Faust on 06-19-2025 WBC (Bld) [#/Vol] 5.4 10*3/uL 4.4-11.0 [facility] Bilirubin Test strip Ql (U)O rdered By: Yesika Faust on 06-03-2025 Bilirubin Ql (U) Negative Negative [facility] Ketones Test strip Ql (U)Ord ered By: Yesika Faust on 06-03-2025 Ketones Ql (U) 15 mg/dl High Negative [facility] Microscopic analysis of urin e for red blood cells (RBC)Ordered By: Yesika Faust on 06-03-2025 Microscopic analysis of urine for red blood cells (RBC) 0-5 SEEN /hpf 0-5 [facility] Mucus LM Ql (Urine sed)Order ed By: Yesika Faust on 06-03-2025 Mucus Ql (Urine sed) 0 SEEN /hpf [facility] Nitrite Test strip Ql (U)Ord ered By: Yesika Faust on 06-03-2025 Nitrite Ql (U) Positive High Negative [facility] Protein Test strip Ql (U)Ord ered By: Yesika Faust on 06-03-2025 Protein Ql (U) 30 mg/dl High Negative [facility] Squamous epithelial cells de tection in urine sediment by light microscopyOrdered By: Yesika Faust on 06-03-2025 Epithelial cells.squamous LM Ql (Urine sed) 0-5 SEEN /hpf 5-10 [facility] Transitional cells detection in urine sediment by light microscopyOrdered By: Yesika Faust on 06-03-2025 Transitional cells LM Ql (Urine sed) 0-5 SEEN /hpf 0-5 [facility] Urine clarityOrdered By: Randall Faust on 06-03-2025 Clarity (U) Cloudy Clear [facility] Urine color determinationOrd ered By: Yesika Faust on 06-03-2025 Color (U) Yellow Yellow [facility] Urine cultureOrdered By: Randall Faust on 06-03-2025 Bacteria identified Cx Nom (U) Staphylococcus aureus Abnormal [facility] Bacteria identified Cx Nom (U) Negative Abnormal [facility] Urine glucose detectionOrder ed By: Yesika Faust on 06-03-2025 Glucose Ql (U) Normal mg/dl Normal [facility] Urine leukocyte esterase det ection by dipstickOrdered By: Yesika Faust on 06-03-2025 Leukocyte esterase Test strip Ql (U) 500 /ul High Negative [facility] Urine pHOrdered By: Fernando Faust on 06-03-2025 pH (U) 6.0 [pH] 5.0 - 8.0 [facility] Urine sediment bacteria coun t by microscopy (number/high power field)Ordered By: Yesika Faust on 06-03-2025 Bacteria LM.HPF (Urine sed) [#/Area] RARE /hpf None Seen [facility] Urine specific gravity measu rementOrdered By: Yesika Faust on 06-03-2025 Specific gravity (U) [Rel density] 1.020 1.002-1.03 0 [facility] Urine urobilinogen measureme ntOrdered By: Yesika Faust on 06-03-2025 Urobilinogen Ql (U) Normal mg/dl Normal [facility] White blood cell countOrdere d By: Yesika Faust on 06-03-2025 White blood cell count >100 SEEN /hpf 0-5 [facility] Absolute lymphocyte countOrd ered By: Yesika Faust on 05-22-2025 Lymphocytes Auto (Unsp spec) [#/Vol] 2.01 10*3/uL 0.83-4.51 [facility] Absolute neutrophil countOrd ered By: Yesika Faust on 05-22-2025 Neutrophils (Bld) [#/Vol] 3.0 10*3/uL 2.0-7.7 [facility] Anion gap in Serum or Plasma Ordered By: Yesika Faust on 05-22-2025 Anion gap [Moles/Vol] 11 mmol/L 5-15 [facility] Automated lymphocyte count a s percentage of total leukocytesOrdered By: Yesika Faust on 05-22-2025 Lymphocytes/100 WBC Auto (Unsp spec) 32.4 % 19-41 [facility] BUN/creatinine ratioOrdered By: ky Faust on 05-22-2025 Urea nitrogen/Creatinine [Mass ratio] 32.0 mg/mg High 10-20 [facility] Basophil percentageOrdered B y: Yesika Faust on 05-22-2025 Basophils/100 WBC (Bld) 0.8 % 0-1 [facility] Bilirubin directOrdered By: Yesika Faust on 05-22-2025 Bilirubin.direct [Mass/Vol] 0.09 mg/dL 0.00-0.30 [facility] Bilirubin, totalOrdered By: Yesika Faust on 05-22-2025 Bilirubin [Mass/Vol] 0.21 mg/dL 0.00-1.30 [facility] Carbon dioxide, total [Moles /volume] in Central venous bloodOrdered By: Yesika Faust on 05-22-2025 CO2 [Moles/Vol] 27.6 mmol/L 21.0-32.0 [facility] Chloride assayOrdered By: Tad Faust on 05-22-2025 Chloride [Moles/Vol] 104 mmol/L 98-108 [facility] Eosinophil percentageOrdered By: Yesika Faust on 05-22-2025 Eosinophils/100 WBC (Bld) 6.5 % High 0-5 [facility] Erythrocyte distribution wid th ratioOrdered By: ky Faust on 05-22-2025 Erythrocyte distribution width (RBC) [Ratio] 12.7 % 11.6-14.6 [facility] Erythrocyte distribution wid th standard deviationOrdered By: Yesika Faust on 05-22-2025 Erythrocyte distribution width (RBC) [Ratio] 44.8 fl High 35.1-43.9 [facility] Glomerular filtration rate ( GFR) estimation/1.73 sq m using serum, plasma, or whole bOrdered By: Yesika Faust on 05-22-2025 GFR/1.73 sq M.predicted among non-blacks MDRD (S/P/Bld) [Vol rate/Area] 88 mL/min/{1.73_m2} >60 [facility] Comment on above: mL/min/1.73m2 CKD-EP I Creatinine Equation (2020) Hematocrit Auto (Bld) [Volum e fraction]Ordered By: Yesika Faust on 05-22-2025 Hematocrit (Bld) [Volume fraction] 41.9 % 37-47 [facility] Hemoglobin measurementOrdere d By: Yesika Faust on 05-22-2025 Hemoglobin (Bld) [Mass/Vol] 13.9 g/dL 12.0-15.0 [facility] Immature granulocytes/100 WB C Auto (Bld)Ordered By: Yesika Faust on 05-22-2025 Immature granulocytes/100 WBC (Bld) 0.300 % 0.0-0.9 [facility] Comment on above: IG% - Immature Granu locytes (promyelocytes, myelocytes and metamyelocytes) > 1% indicates that a LEFT SHIFT is Present. Laboratory - Chemistry and C hemistry - challengeOrdered By: Yesika Faust on 05-22-2025 AST [Catalytic activity/Vol] 17 U/L <32 [facility] MCV (mean corpuscular volume ) determinationOrdered By: ky Faust on 05-22-2025 MCV (RBC) [Entitic vol] 95.0 fL 81-99 [facility] Mean corpuscular hemoglobin (MCH) determinationOrdered By: ky Faust on 05-22-2025 MCH (RBC) [Entitic mass] 31.5 pg 27.0-32.0 [facility] Mean corpuscular hemoglobin concentration (MCHC) determinationOrdered By: Yesika Faust on 05-22-2025 MCHC (RBC) [Mass/Vol] 33.2 g/dL 32-36 [facility] Mean platelet volume determi nationOrdered By: Yesika Faust on 05-22-2025 Platelet mean volume (Bld) [Entitic vol] 10.5 fL 6.2-12.0 [facility] Monocyte percentageOrdered B y: Yesika Faust on 05-22-2025 Monocytes/100 WBC (Bld) 12.3 % High 0-10 [facility] Neutrophil percentageOrdered By: Yesika Faust on 05-22-2025 Neutrophils/100 WBC (Bld) 47.7 % 47-70 [facility] Nucleated red blood cell per centageOrdered By: ky Faust on 05-22-2025 Nucleated RBC/100 WBC (Bld) [Ratio] 0 % 0-5 [facility] Platelet countOrdered By: Tad Faust on 05-22-2025 Platelets (Bld) [#/Vol] 312 10*3/uL 150-450 [facility] Potassium measurement (mass/ volume)Ordered By: Yesika Faust on 05-22-2025 Potassium (Unsp spec) [Mass/Vol] 3.9 mmol/L 3.3-5.1 [facility] RBC Auto (Bld) [#/Vol]Ordere d By: Yesika Faust on 05-22-2025 RBC (Bld) [#/Vol] 4.41 10*6/uL 4.2-5.4 [facility] Serum creatinine measurement (mass/volume)Ordered By: Yesika Faust on 05-22-2025 Creatinine [Mass/Vol] 0.59 mg/dL Low 0.70-1.20 [facility] Serum globulin measurementOr dered By: Yesika Faust 05-22-2025 Globulin (S) [Mass/Vol] 2.8 g/dL 2.2-4.2 [facility] Serum glucose measurement (m ass/volume)Ordered By: Yesika Faust on 05-22-2025 Glucose [Mass/Vol] 89 mg/dL 70-99 [facility] Serum or plasma alanine vela otransferase (ALT) measurementOrdered By: Yesika Faust 05-22-2025 ALT [Catalytic activity/Vol] 8 U/L <35 [facility] Serum or plasma albumin madi urement (mass/volume)Ordered By: Yesika Faust 05-22-2025 Albumin [Mass/Vol] 3.8 g/dL 3.4-4.8 [facility] Serum or plasma alkaline mariaelena sphatase measurementOrdered By: Yesika Faust 05-22-2025 ALP [Catalytic activity/Vol] 204 U/L High 35-104 [facility] Serum or plasma calcium madi urement (mass/volume)Ordered By: Yesika Faust 05-22-2025 Calcium [Mass/Vol] 9.6 mg/dL 7.6-11.0 [facility] Serum or plasma urea nitroge n measurement (mass/volume)Ordered By: Yesika Faust 05-22-2025 Urea nitrogen [Mass/Vol] 19 mg/dL 4-19 [facility] Sodium levelOrdered By: Jed Faust on 05-22-2025 Sodium [Moles/Vol] 142 mmol/L 133-145 [facility] Total proteinOrdered By: Randall Faust on 05-22-2025 Protein [Mass/Vol] 6.6 g/dL 5.9-8.4 [facility] White blood cell (WBC) count Ordered By: Yesika Faust on 05-22-2025 WBC (Bld) [#/Vol] 6.2 10*3/uL 4.4-11.0 [facility] Absolute lymphocyte countOrd ered By: Yseika Faust on 05-16-2025 Lymphocytes Auto (Unsp spec) [#/Vol] 1.39 10*3/uL 0.83-4.51 [facility] Absolute neutrophil countOrd ered By: Yesika Faust on 05-16-2025 Neutrophils (Bld) [#/Vol] 9.3 10*3/uL High 2.0-7.7 [facility] Anion gap in Serum or Plasma Ordered By: Yesika Faust on 05-16-2025 Anion gap [Moles/Vol] 12 mmol/L 5-15 [facility] Automated lymphocyte count a s percentage of total leukocytesOrdered By: Yesika Faust on 05-16-2025 Lymphocytes/100 WBC Auto (Unsp spec) 11.7 % Low 19-41 [facility] BUN/creatinine ratioOrdered By: Yesika Faust on 05-16-2025 Urea nitrogen/Creatinine [Mass ratio] 24.6 mg/mg High 10-20 [facility] Basophil percentageOrdered B y: Yesika Faust on 05-16-2025 Basophils/100 WBC (Bld) 0.5 % 0-1 [facility] Carbon dioxide, total [Moles /volume] in Central venous bloodOrdered By: Yesika Faust on 05-16-2025 CO2 [Moles/Vol] 20.3 mmol/L Low 21.0-32.0 [facility] Chloride assayOrdered By: Tad Faust on 05-16-2025 Chloride [Moles/Vol] 103 mmol/L 98-108 [facility] Eosinophil percentageOrdered By: Yesika Faust on 05-16-2025 Eosinophils/100 WBC (Bld) 0.6 % 0-5 [facility] Erythrocyte distribution wid th ratioOrdered By: Yesika Faust on 05-16-2025 Erythrocyte distribution width (RBC) [Ratio] 13.1 % 11.6-14.6 [facility] Erythrocyte distribution wid th standard deviationOrdered By: Yesika Faust on 05-16-2025 Erythrocyte distribution width (RBC) [Ratio] 46.6 fl High 35.1-43.9 [facility] Glomerular filtration rate ( GFR) estimation/1.73 sq m using serum, plasma, or whole bOrdered By: Yesika Faust on 05-16-2025 GFR/1.73 sq M.predicted among non-blacks MDRD (S/P/Bld) [Vol rate/Area] 86 mL/min/{1.73_m2} >60 [facility] Comment on above: mL/min/1.73m2 CKD-EP I Creatinine Equation (2020) Hematocrit Auto (Bld) [Volum e fraction]Ordered By: [facility] Faust on 05-16-2025 Hematocrit (Bld) [Volume fraction] 41.8 % 37-47 [facility] Hemoglobin measurementOrdere d By: Yesika Faust on 05-16-2025 Hemoglobin (Bld) [Mass/Vol] 13.5 g/dL 12.0-15.0 [facility] Immature granulocytes/100 WB C Auto (Bld)Ordered By: Yesika Faust on 05-16-2025 Immature granulocytes/100 WBC (Bld) 0.500 % 0.0-0.9 [facility] Comment on above: IG% - Immature Granu locytes (promyelocytes, myelocytes and metamyelocytes) > 1% indicates that a LEFT SHIFT is Present. MCV (mean corpuscular volume ) determinationOrdered By: Yesika Faust on 05-16-2025 MCV (RBC) [Entitic vol] 98.4 fL 81-99 [facility] Mean corpuscular hemoglobin (MCH) determinationOrdered By: Yesika Faust on 05-16-2025 MCH (RBC) [Entitic mass] 31.8 pg 27.0-32.0 [facility] Mean corpuscular hemoglobin concentration (MCHC) determinationOrdered By: Yesika Faust on 05-16-2025 MCHC (RBC) [Mass/Vol] 32.3 g/dL 32-36 [facility] Mean platelet volume determi nationOrdered By: Yesika Faust on 05-16-2025 Platelet mean volume (Bld) [Entitic vol] 11.1 fL 6.2-12.0 [facility] Monocyte percentageOrdered B y: Yesika Faust on 05-16-2025 Monocytes/100 WBC (Bld) 8.3 % 0-10 [facility] Neutrophil percentageOrdered By: Yesika Faust on 05-16-2025 Neutrophils/100 WBC (Bld) 78.4 % High 47-70 [facility] Nucleated red blood cell per centageOrdered By: Yesika Faust on 05-16-2025 Nucleated RBC/100 WBC (Bld) [Ratio] 0 % 0-5 [facility] Platelet countOrdered By: Tad Faust on 05-16-2025 Platelets (Bld) [#/Vol] 218 10*3/uL 150-450 [facility] Potassium measurement (mass/ volume)Ordered By: Yesika Faust on 05-16-2025 Potassium (Unsp spec) [Mass/Vol] 5.2 mmol/L High 3.3-5.1 [facility] Comment on above: Hemolysis present, R esults could be affected. RBC Auto (Bld) [#/Vol]Ordere d By: Yesika Faust on 05-16-2025 RBC (Bld) [#/Vol] 4.25 10*6/uL 4.2-5.4 [facility] Serum creatinine measurement (mass/volume)Ordered By: Yesika Faust on 05-16-2025 Creatinine [Mass/Vol] 0.64 mg/dL Low 0.70-1.20 [facility] Serum glucose measurement (m ass/volume)Ordered By: Yesika Faust on 05-16-2025 Glucose [Mass/Vol] 86 mg/dL 70-99 [facility] Serum or plasma calcium madi urement (mass/volume)Ordered By: Tadenriquetasaeidmacarena Butterfieldkathierafaela on 05-16-2025 Calcium [Mass/Vol] 9.4 mg/dL 7.6-11.0 [facility] Serum or plasma urea nitroge n measurement (mass/volume)Ordered By: Yesika Faust on 05-16-2025 Urea nitrogen [Mass/Vol] 16 mg/dL 4-19 [facility] Sodium levelOrdered By: Tad denae Scoutkathierafaela on 05-16-2025 Sodium [Moles/Vol] 135 mmol/L 133-145 [facility] White blood cell (WBC) count Ordered By: Yesika Faust on 05-16-2025 WBC (Bld) [#/Vol] 11.8 10*3/uL High 4.4-11.0 [facility] Absolute lymphocyte countOrd ered By: Yesika Faust on 04-14-2025 Lymphocytes Auto (Unsp spec) [#/Vol] 1.92 10*3/uL 0.83-4.51 [facility] Absolute neutrophil countOrd ered By: Tadky Faust on 04-14-2025 Neutrophils (Bld) [#/Vol] 5.3 10*3/uL 2.0-7.7 [facility] Anion gap in Serum or Plasma Ordered By: Yesika Faust on 04-14-2025 Anion gap [Moles/Vol] 11 mmol/L 5-15 [facility] Automated lymphocyte count a s percentage of total leukocytesOrdered By: Yesika aFust on 04-14-2025 Lymphocytes/100 WBC Auto (Unsp spec) 23.1 % 19-41 [facility] BUN/creatinine ratioOrdered By: Tadky Faust on 04-14-2025 Urea nitrogen/Creatinine [Mass ratio] 34.0 mg/mg High 10-20 [facility] Basophil percentageOrdered B y: Yesika Faust on 04-14-2025 Basophils/100 WBC (Bld) 0.6 % 0-1 [facility] Bilirubin directOrdered By: Yesika Faust on 04-14-2025 Bilirubin.direct [Mass/Vol] 0.09 mg/dL 0.00-0.30 [facility] Bilirubin, totalOrdered By: Yesika Faust on 04-14-2025 Bilirubin [Mass/Vol] 0.23 mg/dL 0.00-1.30 [facility] Carbon dioxide, total [Moles /volume] in Central venous bloodOrdered By: Yesika Faust on 04-14-2025 CO2 [Moles/Vol] 27.5 mmol/L 21.0-32.0 [facility] Chloride assayOrdered By: Tad Faust on 04-14-2025 Chloride [Moles/Vol] 100 mmol/L 98-108 [facility] Eosinophil percentageOrdered By: Yesika Faust 04-14-2025 Eosinophils/100 WBC (Bld) 3.1 % 0-5 [facility] Erythrocyte distribution wid th ratioOrdered By: Yesika Faust on 04-14-2025 Erythrocyte distribution width (RBC) [Ratio] 13.0 % 11.6-14.6 [facility] Erythrocyte distribution wid th standard deviationOrdered By: Yesika Faust on 04-14-2025 Erythrocyte distribution width (RBC) [Ratio] 46.0 fl High 35.1-43.9 [facility] Glomerular filtration rate ( GFR) estimation/1.73 sq m using serum, plasma, or whole bOrdered By: Yesika Faust on 04-14-2025 GFR/1.73 sq M.predicted among non-blacks MDRD (S/P/Bld) [Vol rate/Area] 87 mL/min/{1.73_m2} >60 [facility] Comment on above: mL/min/1.73m2 CKD-EP I Creatinine Equation (2020) Hematocrit Auto (Bld) [Volum e fraction]Ordered By: Yesika Faust on 04-14-2025 Hematocrit (Bld) [Volume fraction] 44.9 % 37-47 [facility] Hemoglobin measurementOrdere d By: Yesika Faust 04-14-2025 Hemoglobin (Bld) [Mass/Vol] 14.4 g/dL 12.0-15.0 [facility] Immature granulocytes/100 WB C Auto (Bld)Ordered By: Yesika Faust on 04-14-2025 Immature granulocytes/100 WBC (Bld) 0.600 % 0.0-0.9 [facility] Comment on above: IG% - Immature Granu locytes (promyelocytes, myelocytes and metamyelocytes) > 1% indicates that a LEFT SHIFT is Present. Laboratory - Chemistry and C hemistry - challengeOrdered By: Yesika Faust on 04-14-2025 AST [Catalytic activity/Vol] 19 U/L <32 [facility] MCV (mean corpuscular volume ) determinationOrdered By: Yesika Faust on 04-14-2025 MCV (RBC) [Entitic vol] 96.8 fL 81-99 [facility] Mean corpuscular hemoglobin (MCH) determinationOrdered By: Yesika Faust on 04-14-2025 MCH (RBC) [Entitic mass] 31.0 pg 27.0-32.0 [facility] Mean corpuscular hemoglobin concentration (MCHC) determinationOrdered By: Yesika Faust on 04-14-2025 MCHC (RBC) [Mass/Vol] 32.1 g/dL 32-36 [facility] Mean platelet volume determi nationOrdered By: Yesika Faust on 04-14-2025 Platelet mean volume (Bld) [Entitic vol] 10.5 fL 6.2-12.0 [facility] Monocyte percentageOrdered B y: Yesika Faust on 04-14-2025 Monocytes/100 WBC (Bld) 9.3 % 0-10 [facility] Neutrophil percentageOrdered By: Yesika Faust on 04-14-2025 Neutrophils/100 WBC (Bld) 63.3 % 47-70 [facility] Nucleated red blood cell per centageOrdered By: Yesika Faust on 04-14-2025 Nucleated RBC/100 WBC (Bld) [Ratio] 0 % 0-5 [facility] Platelet countOrdered By: Tad Faust on 04-14-2025 Platelets (Bld) [#/Vol] 263 10*3/uL 150-450 [facility] Potassium measurement (mass/ volume)Ordered By: Yesika Faust on 04-14-2025 Potassium (Unsp spec) [Mass/Vol] 4.2 mmol/L 3.3-5.1 [facility] RBC Auto (Bld) [#/Vol]Ordere d By: Yesika Faust on 04-14-2025 RBC (Bld) [#/Vol] 4.64 10*6/uL 4.2-5.4 [facility] Serum creatinine measurement (mass/volume)Ordered By: Yesika Faust on 04-14-2025 Creatinine [Mass/Vol] 0.62 mg/dL Low 0.70-1.20 [facility] Serum globulin measurementOr dered By: Yesika Faust on 04-14-2025 Globulin (S) [Mass/Vol] 2.9 g/dL 2.2-4.2 [facility] Serum glucose measurement (m ass/volume)Ordered By: Yesika Faust on 04-14-2025 Glucose [Mass/Vol] 114 mg/dL High 70-99 [facility] Serum or plasma alanine vela otransferase (ALT) measurementOrdered By: Yesika Faust on 04-14-2025 ALT [Catalytic activity/Vol] 19 U/L <35 [facility] Serum or plasma albumin madi urement (mass/volume)Ordered By: Yesika Faust on 04-14-2025 Albumin [Mass/Vol] 4.2 g/dL 3.4-4.8 [facility] Serum or plasma alkaline mariaelena sphatase measurementOrdered By: Yesika Faust on 04-14-2025 ALP [Catalytic activity/Vol] 135 U/L High 35-104 [facility] Serum or plasma calcium madi urement (mass/volume)Ordered By: Yesika Faust on 04-14-2025 Calcium [Mass/Vol] 9.7 mg/dL 7.6-11.0 [facility] Serum or plasma urea nitroge n measurement (mass/volume)Ordered By: Yesika Faust on 04-14-2025 Urea nitrogen [Mass/Vol] 21 mg/dL High 4-19 [facility] Sodium levelOrdered By: Jed Faust on 04-14-2025 Sodium [Moles/Vol] 139 mmol/L 133-145 [facility] Total proteinOrdered By: Randall Faust on 04-14-2025 Protein [Mass/Vol] 7.1 g/dL 5.9-8.4 [facility] White blood cell (WBC) count Ordered By: Yesika Faust on 04-14-2025 WBC (Bld) [#/Vol] 8.3 10*3/uL 4.4-11.0 [facility] Absolute lymphocyte countOrd ered By: Yesika Faust on 03-14-2025 Lymphocytes Auto (Unsp spec) [#/Vol] 2.03 10*3/uL 0.83-4.51 [facility] Absolute neutrophil countOrd ered By: Yesika Faust on 03-14-2025 Neutrophils (Bld) [#/Vol] 3.4 10*3/uL 2.0-7.7 [facility] Anion gap in Serum or Plasma Ordered By: Yesika Faust on 03-14-2025 Anion gap [Moles/Vol] 9 mmol/L 5-15 [facility] Automated lymphocyte count a s percentage of total leukocytesOrdered By: Yesika Faust on 03-14-2025 Lymphocytes/100 WBC Auto (Unsp spec) 31.4 % 19-41 [facility] BUN/creatinine ratioOrdered By: Yesika Faust on 03-14-2025 Urea nitrogen/Creatinine [Mass ratio] 38.6 mg/mg High 10-20 [facility] Basophil percentageOrdered B y: Yesika Faust on 03-14-2025 Basophils/100 WBC (Bld) 0.5 % 0-1 [facility] Carbon dioxide, total [Moles /volume] in Central venous bloodOrdered By: Yesika Faust on 03-14-2025 CO2 [Moles/Vol] 28.1 mmol/L 21.0-32.0 [facility] Chloride assayOrdered By: Tad Faust on 03-14-2025 Chloride [Moles/Vol] 105 mmol/L 98-108 [facility] Eosinophil percentageOrdered By: Yesika Faust on 03-14-2025 Eosinophils/100 WBC (Bld) 5.6 % High 0-5 [facility] Erythrocyte distribution wid th ratioOrdered By: Yesika Faust on 03-14-2025 Erythrocyte distribution width (RBC) [Ratio] 12.8 % 11.6-14.6 [facility] Erythrocyte distribution wid th standard deviationOrdered By: Yesika Faust on 03-14-2025 Erythrocyte distribution width (RBC) [Ratio] 46.6 fl High 35.1-43.9 [facility] Glomerular filtration rate ( GFR) estimation/1.73 sq m using serum, plasma, or whole bOrdered By: Yesika Faust 03-14-2025 GFR/1.73 sq M.predicted among non-blacks MDRD (S/P/Bld) [Vol rate/Area] 88 mL/min/{1.73_m2} >60 [facility] Comment on above: mL/min/1.73m2 CKD-EP I Creatinine Equation (2020) Hematocrit Auto (Bld) [Volum e fraction]Ordered By: Yesika Faust on 03-14-2025 Hematocrit (Bld) [Volume fraction] 39.8 % 37-47 [facility] Hemoglobin measurementOrdere d By: Yesika Faust on 03-14-2025 Hemoglobin (Bld) [Mass/Vol] 12.8 g/dL 12.0-15.0 [facility] Immature granulocytes/100 WB C Auto (Bld)Ordered By: Yesika Faust 03-14-2025 Immature granulocytes/100 WBC (Bld) 0.600 % 0.0-0.9 [facility] Comment on above: IG% - Immature Granu locytes (promyelocytes, myelocytes and metamyelocytes) > 1% indicates that a LEFT SHIFT is Present. MCV (mean corpuscular volume ) determinationOrdered By: Yesika Faust 03-14-2025 MCV (RBC) [Entitic vol] 99.0 fL 81-99 [facility] Mean corpuscular hemoglobin (MCH) determinationOrdered By: Tadenriquetasaeidmacarena Butterfieldkathierafaela on 03-14-2025 MCH (RBC) [Entitic mass] 31.8 pg 27.0-32.0 [facility] Mean corpuscular hemoglobin concentration (MCHC) determinationOrdered By: Yesika Butterfieldkathierafaela on 03-14-2025 MCHC (RBC) [Mass/Vol] 32.2 g/dL 32-36 [facility] Mean platelet volume determi nationOrdered By: Yesika Butterfieldkathierafaela on 03-14-2025 Platelet mean volume (Bld) [Entitic vol] 10.4 fL 6.2-12.0 [facility] Monocyte percentageOrdered B y: Yesika Butterfieldkathierafaela on 03-14-2025 Monocytes/100 WBC (Bld) 10.2 % High 0-10 [facility] Neutrophil percentageOrdered By: Yesika Faust on 03-14-2025 Neutrophils/100 WBC (Bld) 51.7 % 47-70 [facility] Nucleated red blood cell per centageOrdered By: Yesika Butterfieldkathierafaela on 03-14-2025 Nucleated RBC/100 WBC (Bld) [Ratio] 0 % 0-5 [facility] Platelet countOrdered By: Tad shymacarena Butterfieldkathierafaela on 03-14-2025 Platelets (Bld) [#/Vol] 238 10*3/uL 150-450 [facility] Potassium measurement (mass/ volume)Ordered By: Yesika Faust on 03-14-2025 Potassium (Unsp spec) [Mass/Vol] 4.1 mmol/L 3.3-5.1 [facility] RBC Auto (Bld) [#/Vol]Ordere d By: Yesika Faust on 03-14-2025 RBC (Bld) [#/Vol] 4.02 10*6/uL Low 4.2-5.4 [facility] Serum creatinine measurement (mass/volume)Ordered By: Yesika Faust on 03-14-2025 Creatinine [Mass/Vol] 0.60 mg/dL Low 0.70-1.20 [facility] Serum glucose measurement (m ass/volume)Ordered By: Yesika Faust on 03-14-2025 Glucose [Mass/Vol] 82 mg/dL 70-99 [facility] Serum or plasma calcium madi urement (mass/volume)Ordered By: Yesika Faust on 03-14-2025 Calcium [Mass/Vol] 9.1 mg/dL 7.6-11.0 [facility] Serum or plasma urea nitroge n measurement (mass/volume)Ordered By: Yesika Faust on 03-14-2025 Urea nitrogen [Mass/Vol] 23 mg/dL High 4-19 [facility] Sodium levelOrdered By: Jed Faust on 03-14-2025 Sodium [Moles/Vol] 142 mmol/L 133-145 [facility] White blood cell (WBC) count Ordered By: Yesika Faust on 03-14-2025 WBC (Bld) [#/Vol] 6.5 10*3/uL 4.4-11.0 [facility] Bilirubin Test strip Ql (U)O rdered By: Yesika Faust on 03-06-2025 Bilirubin Ql (U) Negative Negative [facility] Ketones Test strip Ql (U)Ord ered By: Yesika Faust on 03-06-2025 Ketones Ql (U) 5 mg/dl High Negative [facility] Nitrite Test strip Ql (U)Ord ered By: Yesika Faust on 03-06-2025 Nitrite Ql (U) Negative Negative [facility] Protein Test strip Ql (U)Ord ered By: Yesika Faust on 03-06-2025 Protein Ql (U) 100 mg/dl High Negative [facility] Urine clarityOrdered By: Randall Faust on 03-06-2025 Clarity (U) Turbid Clear [facility] Urine color determinationOrd ered By: Yesika Faust on 03-06-2025 Color (U) Yellow Yellow [facility] Urine cultureOrdered By: Randall Faust on 03-06-2025 Bacteria identified Cx Nom (U) Proteus mirabilis Abnormal [facility] Urine glucose detectionOrder ed By: Yesika Faust on 03-06-2025 Glucose Ql (U) Normal mg/dl Normal [facility] Urine leukocyte esterase det ection by dipstickOrdered By: Yesika Faust on 03-06-2025 Leukocyte esterase Test strip Ql (U) 500 /ul High Negative [facility] Urine pHOrdered By: Fernando Faust on 03-06-2025 pH (U) 6.0 [pH] 5.0 - 8.0 [facility] Urine specific gravity measu rementOrdered By: Yesika Faust on 03-06-2025 Specific gravity (U) [Rel density] 1.020 1.002-1.03 0 [facility] Urine urobilinogen measureme ntOrdered By: Yesika Faust on 03-06-2025 Urobilinogen Ql (U) Normal mg/dl Normal [facility] Serum or plasma valproate me asurement (mass/volume)Ordered By: Yesika Faust on 02-27-2025 Valproate [Mass/Vol] 15 ug/mL Low 50-100 [facility] Comment on above: Valproic Acid concen trations >100 ug/mL are potentially toxic. Absolute lymphocyte countOrd ered By: Yesika Faust on 02-13-2025 Lymphocytes Auto (Unsp spec) [#/Vol] 1.82 10*3/uL 0.83-4.51 [facility] Absolute neutrophil countOrd ered By: Yesika Faust on 02-13-2025 Neutrophils (Bld) [#/Vol] 3.5 10*3/uL 2.0-7.7 [facility] Anion gap in Serum or Plasma Ordered By: Yesika Faust on 02-13-2025 Anion gap [Moles/Vol] 10 mmol/L 5-15 [facility] Automated lymphocyte count a s percentage of total leukocytesOrdered By: Yesika Faust on 02-13-2025 Lymphocytes/100 WBC Auto (Unsp spec) 29.1 % 19-41 [facility] BUN/creatinine ratioOrdered By: Yesika Faust on 02-13-2025 Urea nitrogen/Creatinine [Mass ratio] 32.3 mg/mg High 10-20 [facility] Basophil percentageOrdered B y: Yesika Faust on 02-13-2025 Basophils/100 WBC (Bld) 0.6 % 0-1 [facility] Carbon dioxide, total [Moles /volume] in Central venous bloodOrdered By: Yesika Faust on 02-13-2025 CO2 [Moles/Vol] 28.1 mmol/L 21.0-32.0 [facility] Chloride assayOrdered By: Tad Faust on 02-13-2025 Chloride [Moles/Vol] 101 mmol/L 98-108 [facility] Eosinophil percentageOrdered By: Yesika Faust on 02-13-2025 Eosinophils/100 WBC (Bld) 3.7 % 0-5 [facility] Erythrocyte distribution wid th ratioOrdered By: Yesika Faust on 02-13-2025 Erythrocyte distribution width (RBC) [Ratio] 12.9 % 11.6-14.6 [facility] Erythrocyte distribution wid th standard deviationOrdered By: ky Faust on 02-13-2025 Erythrocyte distribution width (RBC) [Ratio] 46.5 fl High 35.1-43.9 [facility] Glomerular filtration rate ( GFR) estimation/1.73 sq m using serum, plasma, or whole bOrdered By: Yesika Faust on 02-13-2025 GFR/1.73 sq M.predicted among non-blacks MDRD (S/P/Bld) [Vol rate/Area] 87 mL/min/{1.73_m2} >60 [facility] Comment on above: mL/min/1.73m2 CKD-EP I Creatinine Equation (2020) Hematocrit Auto (Bld) [Volum e fraction]Ordered By: Yesika Faust on 02-13-2025 Hematocrit (Bld) [Volume fraction] 43.2 % 37-47 [facility] Hemoglobin measurementOrdere d By: Yesika Faust on 02-13-2025 Hemoglobin (Bld) [Mass/Vol] 13.9 g/dL 12.0-15.0 [facility] Immature granulocytes/100 WB C Auto (Bld)Ordered By: Yesika Faust on 02-13-2025 Immature granulocytes/100 WBC (Bld) 0.300 % 0.0-0.9 [facility] Comment on above: IG% - Immature Granu locytes (promyelocytes, myelocytes and metamyelocytes) > 1% indicates that a LEFT SHIFT is Present. MCV (mean corpuscular volume ) determinationOrdered By: Yesika Faust on 02-13-2025 MCV (RBC) [Entitic vol] 97.7 fL 81-99 [facility] Mean corpuscular hemoglobin (MCH) determinationOrdered By: Yesika Faust on 02-13-2025 MCH (RBC) [Entitic mass] 31.4 pg 27.0-32.0 [facility] Mean corpuscular hemoglobin concentration (MCHC) determinationOrdered By: Jedriverdalemacarena Faust on 02-13-2025 MCHC (RBC) [Mass/Vol] 32.2 g/dL 32-36 [facility] Mean platelet volume determi nationOrdered By: Yesika Faust on 02-13-2025 Platelet mean volume (Bld) [Entitic vol] 10.3 fL 6.2-12.0 [facility] Monocyte percentageOrdered B y: Yesika Faust on 02-13-2025 Monocytes/100 WBC (Bld) 10.7 % High 0-10 [facility] Neutrophil percentageOrdered By: Yesika Faust on 02-13-2025 Neutrophils/100 WBC (Bld) 55.6 % 47-70 [facility] Nucleated red blood cell per centageOrdered By: Yesika Faust on 02-13-2025 Nucleated RBC/100 WBC (Bld) [Ratio] 0 % 0-5 [facility] Platelet countOrdered By: Tad Faust on 02-13-2025 Platelets (Bld) [#/Vol] 231 10*3/uL 150-450 [facility] Potassium measurement (mass/ volume)Ordered By: Yesika Faust on 02-13-2025 Potassium (Unsp spec) [Mass/Vol] 4.0 mmol/L 3.3-5.1 [facility] RBC Auto (Bld) [#/Vol]Ordere d By: Yesika Faust on 02-13-2025 RBC (Bld) [#/Vol] 4.42 10*6/uL 4.2-5.4 [facility] Serum creatinine measurement (mass/volume)Ordered By: Yesika Faust on 02-13-2025 Creatinine [Mass/Vol] 0.62 mg/dL Low 0.70-1.20 [facility] Serum glucose measurement (m ass/volume)Ordered By: Yesika Faust on 02-13-2025 Glucose [Mass/Vol] 88 mg/dL 70-99 [facility] Serum or plasma calcium madi urement (mass/volume)Ordered By: Yesika Faust on 02-13-2025 Calcium [Mass/Vol] 9.3 mg/dL 7.6-11.0 [facility] Serum or plasma urea nitroge n measurement (mass/volume)Ordered By: Yesika Faust on 02-13-2025 Urea nitrogen [Mass/Vol] 20 mg/dL High 4-19 [facility] Sodium levelOrdered By: Jed jiangbert Christianne on 02-13-2025 Sodium [Moles/Vol] 140 mmol/L 133-145 [facility] White blood cell (WBC) count Ordered By: Yesika Faust on 02-13-2025 WBC (Bld) [#/Vol] 6.3 10*3/uL 4.4-11.0 [facility] Potassium measurement (mass/ volume)Ordered By: Zeina Balbuena on 01-23-2025 Potassium (Unsp spec) [Mass/Vol] 3.8 mmol/L 3.3-5.1 [facility] Absolute lymphocyte countOrd ered By: Yesika Faust on 01-18-2025 Lymphocytes Auto (Unsp spec) [#/Vol] 1.51 10*3/uL 0.83-4.51 [facility] Absolute neutrophil countOrd ered By: Yesika Faust on 01-18-2025 Neutrophils (Bld) [#/Vol] 3.9 10*3/uL 2.0-7.7 [facility] Anion gap in Serum or Plasma Ordered By: Yesika Faust on 01-18-2025 Anion gap [Moles/Vol] 12 mmol/L 5-15 [facility] Automated lymphocyte count a s percentage of total leukocytesOrdered By: Yesika Faust on 01-18-2025 Lymphocytes/100 WBC Auto (Unsp spec) 23.4 % 19-41 [facility] BUN/creatinine ratioOrdered By: Yesika Faust on 01-18-2025 Urea nitrogen/Creatinine [Mass ratio] 36.2 mg/mg High 10-20 [facility] Basophil percentageOrdered B y: Yesika Faust on 01-18-2025 Basophils/100 WBC (Bld) 0.6 % 0-1 [facility] Bilirubin directOrdered By: Yesika Faust on 01-18-2025 Bilirubin.direct [Mass/Vol] 0.11 mg/dL 0.00-0.30 [facility] Bilirubin, totalOrdered By: Yesika Faust on 01-18-2025 Bilirubin [Mass/Vol] 0.25 mg/dL 0.00-1.30 [facility] Carbon dioxide, total [Moles /volume] in Central venous bloodOrdered By: Yesika Faust on 01-18-2025 CO2 [Moles/Vol] 22.7 mmol/L 21.0-32.0 [facility] Chloride assayOrdered By: Tad Faust on 01-18-2025 Chloride [Moles/Vol] 107 mmol/L 98-108 [facility] Eosinophil percentageOrdered By: Yesika Faust on 01-18-2025 Eosinophils/100 WBC (Bld) 6.1 % High 0-5 [facility] Erythrocyte distribution wid th ratioOrdered By: Yesika Faust on 01-18-2025 Erythrocyte distribution width (RBC) [Ratio] 13.4 % 11.6-14.6 [facility] Erythrocyte distribution wid th standard deviationOrdered By: Yesika Faust on 01-18-2025 Erythrocyte distribution width (RBC) [Ratio] 46.6 fl High 35.1-43.9 [facility] Glomerular filtration rate ( GFR) estimation/1.73 sq m using serum, plasma, or whole bOrdered By: Yesika Faust on 01-18-2025 GFR/1.73 sq M.predicted among non-blacks MDRD (S/P/Bld) [Vol rate/Area] 80 mL/min/{1.73_m2} >60 [facility] Comment on above: mL/min/1.73m2 CKD-EP I Creatinine Equation (2020) Hematocrit Auto (Bld) [Volum e fraction]Ordered By: [facility] on 01-18-2025 Hematocrit (Bld) [Volume fraction] 42.1 % 37-47 [facility] Hemoglobin measurementOrdere d By: Yesika Faust on 01-18-2025 Hemoglobin (Bld) [Mass/Vol] 14.2 g/dL 12.0-15.0 [facility] Immature granulocytes/100 WB C Auto (Bld)Ordered By: Yesika Faust on 01-18-2025 Immature granulocytes/100 WBC (Bld) 0.500 % 0.0-0.9 [facility] Comment on above: IG% - Immature Granu locytes (promyelocytes, myelocytes and metamyelocytes) > 1% indicates that a LEFT SHIFT is Present. Laboratory - Chemistry and C hemistry - challengeOrdered By: Yesika Faust on 01-18-2025 AST [Catalytic activity/Vol] 19 U/L <32 [facility] MCV (mean corpuscular volume ) determinationOrdered By: Yesika Faust 01-18-2025 MCV (RBC) [Entitic vol] 94.4 fL 81-99 [facility] Mean corpuscular hemoglobin (MCH) determinationOrdered By: enriquetariverdalemacarena Fasut 01-18-2025 MCH (RBC) [Entitic mass] 31.8 pg 27.0-32.0 [facility] Mean corpuscular hemoglobin concentration (MCHC) determinationOrdered By: enriquetariverdalemacarena Faust 01-18-2025 MCHC (RBC) [Mass/Vol] 33.7 g/dL 32-36 [facility] Mean platelet volume determi nationOrdered By: Yesika Faust on 01-18-2025 Platelet mean volume (Bld) [Entitic vol] 11.6 fL 6.2-12.0 [facility] Monocyte percentageOrdered B y: Yesika Faust on 01-18-2025 Monocytes/100 WBC (Bld) 9.3 % 0-10 [facility] Neutrophil percentageOrdered By: Yesika Faust on 01-18-2025 Neutrophils/100 WBC (Bld) 60.1 % 47-70 [facility] Nucleated red blood cell per centageOrdered By: Yesika Faust on 01-18-2025 Nucleated RBC/100 WBC (Bld) [Ratio] 0 % 0-5 [facility] Platelet countOrdered By: Tad Faust on 01-18-2025 Platelet count TNP [facility] Comment on above: Test not performedPl [...] Platelets LM Ql (Bld) SLT DEC ADEQ [facility] Potassium measurement (mass/ volume)Ordered By: Yesika Faust on 01-18-2025 Potassium (Unsp spec) [Mass/Vol] 5.6 mmol/L High 3.3-5.1 [facility] RBC Auto (Bld) [#/Vol]Ordere d By: Yesika Faust on 01-18-2025 RBC (Bld) [#/Vol] 4.46 10*6/uL 4.2-5.4 [facility] Serum creatinine measurement (mass/volume)Ordered By: Yesika Faust on 01-18-2025 Creatinine [Mass/Vol] 0.73 mg/dL 0.70-1.20 [facility] Serum globulin measurementOr dered By: Yesika Faust on 01-18-2025 Globulin (S) [Mass/Vol] 2.5 g/dL 2.2-4.2 [facility] Serum glucose measurement (m ass/volume)Ordered By: Yesika Faust on 01-18-2025 Glucose [Mass/Vol] 84 mg/dL 70-99 [facility] Serum or plasma alanine vela otransferase (ALT) measurementOrdered By: Yesika Faust on 01-18-2025 ALT [Catalytic activity/Vol] 14 U/L <35 [facility] Serum or plasma albumin madi urement (mass/volume)Ordered By: Yesika Faust on 01-18-2025 Albumin [Mass/Vol] 3.7 g/dL 3.4-4.8 [facility] Serum or plasma alkaline mariaelena sphatase measurementOrdered By: Yesika Faust on 01-18-2025 ALP [Catalytic activity/Vol] 106 U/L High 35-104 [facility] Serum or plasma calcium madi urement (mass/volume)Ordered By: Yesika aFust on 01-18-2025 Calcium [Mass/Vol] 9.1 mg/dL 7.6-11.0 [facility] Serum or plasma urea nitroge n measurement (mass/volume)Ordered By: Yesika Faust on 01-18-2025 Urea nitrogen [Mass/Vol] 27 mg/dL High 4-19 [facility] Sodium levelOrdered By: Jed Faust on 01-18-2025 Sodium [Moles/Vol] 141 mmol/L 133-145 [facility] Total proteinOrdered By: Randall Faust on 01-18-2025 Protein [Mass/Vol] 6.1 g/dL 5.9-8.4 [facility] White blood cell (WBC) count Ordered By: Yesika Faust on 01-18-2025 WBC (Bld) [#/Vol] 6.4 10*3/uL 4.4-11.0 [facility] Bilirubin Test strip Ql (U)O rdered By: Yesika Faust on 01-14-2025 Bilirubin Ql (U) Negative Negative [facility] Ketones Test strip Ql (U)Ord ered By: Yesika Faust on 01-14-2025 Ketones Ql (U) Negative Negative [facility] Nitrite Test strip Ql (U)Ord ered By: Yesika Faust on 01-14-2025 Nitrite Ql (U) Negative Negative [facility] Protein Test strip Ql (U)Ord ered By: Yesika Faust on 01-14-2025 Protein Ql (U) 30 mg/dl High Negative [facility] Urine clarityOrdered By: Randall Faust on 01-14-2025 Clarity (U) Cloudy Clear [facility] Urine color determinationOrd ered By: Yesika Faust on 01-14-2025 Color (U) Yellow Yellow [facility] Urine cultureOrdered By: Randall Faust on 01-14-2025 Bacteria identified Cx Nom (U) Proteus mirabilis Abnormal [facility] Urine glucose detectionOrder ed By: Yesika Faust on 01-14-2025 Glucose Ql (U) Normal mg/dl Normal [facility] Urine leukocyte esterase det ection by dipstickOrdered By: Yesika Faust on 01-14-2025 Leukocyte esterase Test strip Ql (U) 500 /ul High Negative [facility] Urine pHOrdered By: Fernando Faust on 01-14-2025 pH (U) 7.0 [pH] 5.0 - 8.0 [facility] Urine specific gravity measu rementOrdered By: Yesika Faust on 01-14-2025 Specific gravity (U) [Rel density] 1.010 1.002-1.03 0 [facility] Urine urobilinogen measureme ntOrdered By: Yesika Faust on 01-14-2025 Urobilinogen Ql (U) Normal mg/dl Normal [facility] Absolute lymphocyte countOrd ered By: Yesika Faust on 01-12-2025 Lymphocytes Auto (Unsp spec) [#/Vol] 1.66 10*3/uL 0.83-4.51 [facility] Absolute neutrophil countOrd ered By: Yesika Faust on 01-12-2025 Neutrophils (Bld) [#/Vol] 3.2 10*3/uL 2.0-7.7 [facility] Anion gap in Serum or Plasma Ordered By: Yesika Faust on 01-12-2025 Anion gap [Moles/Vol] 13 mmol/L 5-15 [facility] Automated lymphocyte count a s percentage of total leukocytesOrdered By: Yesika Faust on 01-12-2025 Lymphocytes/100 WBC Auto (Unsp spec) 27.6 % 19-41 [facility] BUN/creatinine ratioOrdered By: Yesika Faust on 01-12-2025 Urea nitrogen/Creatinine [Mass ratio] 36.9 mg/mg High 10-20 [facility] Basophil percentageOrdered B y: Yesika Faust on 01-12-2025 Basophils/100 WBC (Bld) 0.8 % 0-1 [facility] Bilirubin directOrdered By: Yesika Faust on 01-12-2025 Bilirubin.direct [Mass/Vol] 0.11 mg/dL 0.00-0.30 [facility] Bilirubin, totalOrdered By: Yesika Faust on 01-12-2025 Bilirubin [Mass/Vol] 0.24 mg/dL 0.00-1.30 [facility] Carbon dioxide, total [Moles /volume] in Central venous bloodOrdered By: Yesika Faust on 01-12-2025 CO2 [Moles/Vol] 22.3 mmol/L 21.0-32.0 [facility] Chloride assayOrdered By: Tad Faust on 01-12-2025 Chloride [Moles/Vol] 106 mmol/L 98-108 [facility] Eosinophil percentageOrdered By: Yesika Faust on 01-12-2025 Eosinophils/100 WBC (Bld) 7.2 % High 0-5 [facility] Erythrocyte distribution wid th ratioOrdered By: Yesika Faust on 01-12-2025 Erythrocyte distribution width (RBC) [Ratio] 13.5 % 11.6-14.6 [facility] Erythrocyte distribution wid th standard deviationOrdered By: Yesika Faust on 01-12-2025 Erythrocyte distribution width (RBC) [Ratio] 47.9 fl High 35.1-43.9 [facility] Glomerular filtration rate ( GFR) estimation/1.73 sq m using serum, plasma, or whole bOrdered By: Yesika Faust on 01-12-2025 GFR/1.73 sq M.predicted among non-blacks MDRD (S/P/Bld) [Vol rate/Area] 84 mL/min/{1.73_m2} >60 [facility] Comment on above: mL/min/1.73m2 CKD-EP I Creatinine Equation (2020) Hematocrit Auto (Bld) [Volum e fraction]Ordered By: enriquetariverdalemacarena Faust on 01-12-2025 Hematocrit (Bld) [Volume fraction] 40.4 % 37-47 [facility] Hemoglobin measurementOrdere d By: Yesika Faust on 01-12-2025 Hemoglobin (Bld) [Mass/Vol] 13.3 g/dL 12.0-15.0 [facility] Immature granulocytes/100 WB C Auto (Bld)Ordered By: Yesika Faust on 01-12-2025 Immature granulocytes/100 WBC (Bld) 0.300 % 0.0-0.9 [facility] Comment on above: IG% - Immature Granu locytes (promyelocytes, myelocytes and metamyelocytes) > 1% indicates that a LEFT SHIFT is Present. Laboratory - Chemistry and C hemistry - challengeOrdered By: Yesika Faust on 01-12-2025 AST [Catalytic activity/Vol] 16 U/L <32 [facility] MCV (mean corpuscular volume ) determinationOrdered By: Yesika Faust on 01-12-2025 MCV (RBC) [Entitic vol] 97.1 fL 81-99 [facility] Mean corpuscular hemoglobin (MCH) determinationOrdered By: Yesika Faust on 01-12-2025 MCH (RBC) [Entitic mass] 32.0 pg 27.0-32.0 [facility] Mean corpuscular hemoglobin concentration (MCHC) determinationOrdered By: Yesika Faust on 01-12-2025 MCHC (RBC) [Mass/Vol] 32.9 g/dL 32-36 [facility] Mean platelet volume determi nationOrdered By: Yesika Faust on 01-12-2025 Platelet mean volume (Bld) [Entitic vol] 10.7 fL 6.2-12.0 [facility] Monocyte percentageOrdered B y: Yesika Faust on 01-12-2025 Monocytes/100 WBC (Bld) 10.8 % High 0-10 [facility] Neutrophil percentageOrdered By: Yesika Faust on 01-12-2025 Neutrophils/100 WBC (Bld) 53.3 % 47-70 [facility] Nucleated red blood cell per centageOrdered By: Yesika Faust on 01-12-2025 Nucleated RBC/100 WBC (Bld) [Ratio] 0 % 0-5 [facility] Platelet countOrdered By: Tad Faust on 01-12-2025 Platelets (Bld) [#/Vol] 233 10*3/uL 150-450 [facility] Potassium measurement (mass/ volume)Ordered By: Yesika Faust on 01-12-2025 Potassium (Unsp spec) [Mass/Vol] 4.4 mmol/L 3.3-5.1 [facility] RBC Auto (Bld) [#/Vol]Ordere d By: Yesika Faust on 01-12-2025 RBC (Bld) [#/Vol] 4.16 10*6/uL Low 4.2-5.4 [facility] Serum creatinine measurement (mass/volume)Ordered By: Yesika Faust on 01-12-2025 Creatinine [Mass/Vol] 0.71 mg/dL 0.70-1.20 [facility] Serum globulin measurementOr dered By: Yesika Faust on 01-12-2025 Globulin (S) [Mass/Vol] 2.2 g/dL 2.2-4.2 [facility] Serum glucose measurement (m ass/volume)Ordered By: Yesika Faust on 01-12-2025 Glucose [Mass/Vol] 95 mg/dL 70-99 [facility] Serum or plasma alanine vela otransferase (ALT) measurementOrdered By: Yesika Faust on 01-12-2025 ALT [Catalytic activity/Vol] 12 U/L <35 [facility] Serum or plasma albumin madi urement (mass/volume)Ordered By: Yesika Faust on 01-12-2025 Albumin [Mass/Vol] 3.5 g/dL 3.4-4.8 [facility] Serum or plasma alkaline mariaelena sphatase measurementOrdered By: Yesika Faust on 01-12-2025 ALP [Catalytic activity/Vol] 110 U/L High 35-104 [facility] Serum or plasma calcium madi urement (mass/volume)Ordered By: Yesika Faust on 01-12-2025 Calcium [Mass/Vol] 9.0 mg/dL 7.6-11.0 [facility] Serum or plasma urea nitroge n measurement (mass/volume)Ordered By: Yesika Faust on 01-12-2025 Urea nitrogen [Mass/Vol] 26 mg/dL High 4-19 [facility] Sodium levelOrdered By: Jed denae Christianne on 01-12-2025 Sodium [Moles/Vol] 142 mmol/L 133-145 [facility] Total proteinOrdered By: Randallrafaela willardmacarena Faust on 01-12-2025 Protein [Mass/Vol] 5.7 g/dL Low 5.9-8.4 [facility] White blood cell (WBC) count Ordered By: Yesika Faust on 01-12-2025 WBC (Bld) [#/Vol] 6.0 10*3/uL 4.4-11.0 [facility] Absolute lymphocyte countOrd ered By: Yesika Faust on 12-14-2024 Lymphocytes Auto (Unsp spec) [#/Vol] 2.70 10*3/uL 0.83-4.51 [facility] Absolute neutrophil countOrd ered By: Yesika Faust on 12-14-2024 Neutrophils (Bld) [#/Vol] 4.2 10*3/uL 2.0-7.7 [facility] Anion gap in Serum or Plasma Ordered By: Yesika Faust on 12-14-2024 Anion gap [Moles/Vol] 12 mmol/L 5-15 [facility] Automated lymphocyte count a s percentage of total leukocytesOrdered By: Yesika Faust on 12-14-2024 Lymphocytes/100 WBC Auto (Unsp spec) 33.0 % 19-41 [facility] BUN/creatinine ratioOrdered By: Jedriverdalemacarena Faust on 12-14-2024 Urea nitrogen/Creatinine [Mass ratio] 30.0 mg/mg High 10-20 [facility] Basophil percentageOrdered B y: Yesika Faust on 12-14-2024 Basophils/100 WBC (Bld) 1.0 % 0-1 [facility] Carbon dioxide, total [Moles /volume] in Central venous bloodOrdered By: Yesika Faust on 12-14-2024 CO2 [Moles/Vol] 25.1 mmol/L 21.0-32.0 [facility] Chloride assayOrdered By: Tad Faust on 12-14-2024 Chloride [Moles/Vol] 103 mmol/L 98-108 [facility] Eosinophil percentageOrdered By: enriquetariverdalemacarena Faust on 12-14-2024 Eosinophils/100 WBC (Bld) 4.4 % 0-5 [facility] Erythrocyte distribution wid th (RBC) [Ratio]Ordered By: Yesika Faust on 12-14-2024 Erythrocyte distribution width (RBC) [Entitic vol] 45.8 fL High 35.1-43.9 [facility] Erythrocyte distribution wid th ratioOrdered By: Jedriverdalemacarena Faust on 12-14-2024 Erythrocyte distribution width (RBC) [Ratio] 13.2 % 11.6-14.6 [facility] Erythrocyte distribution wid th standard deviationOrdered By: enriquetariverdalemacarena Faust on 12-14-2024 Erythrocyte distribution width (RBC) [Ratio] 45.8 fl High 35.1-43.9 [facility] GFR/1.73 sq M.predicted giorgio g non-blacks MDRD (S/P/Bld) [Vol rate/Area]Ordered By: Yesika Faust on 12-14-2024 Estimated GFR (MDRD) Non-Af Amer 76 >60 [facility] Comment on above: mL/min/1.73m2 CKD-EP I Creatinine Equation (2020) Glomerular filtration rate ( GFR) estimation/1.73 sq m using serum, plasma, or whole bOrdered By: Yesika Faust on 12-14-2024 GFR/1.73 sq M.predicted among non-blacks MDRD (S/P/Bld) [Vol rate/Area] 76 mL/min/{1.73_m2} >60 [facility] Comment on above: mL/min/1.73m2 CKD-EP I Creatinine Equation (2020) Hematocrit Auto (Bld) [Volum e fraction]Ordered By: Yesika Faust on 12-14-2024 Hematocrit (Bld) [Volume fraction] 46.6 % 37-47 [facility] Hemoglobin measurementOrdere d By: Yesika Faust on 12-14-2024 Hemoglobin (Bld) [Mass/Vol] 15.2 g/dL High 12.0-15.0 [facility] Immature granulocytes/100 WB C Auto (Bld)Ordered By: Yesika Faust on 12-14-2024 Immature granulocytes/100 WBC (Bld) 0.500 % 0.0-0.9 [facility] Comment on above: IG% - Immature Granu locytes (promyelocytes, myelocytes and metamyelocytes) > 1% indicates that a LEFT SHIFT is Present. Lymphocytes Auto (Unsp spec) [#/Vol]Ordered By: enriquetariverdalemacarena Faust on 12-14-2024 Lymphocytes (Bld) [#/Vol] 2.70 10*3/uL 0.83-4.51 [facility] Lymphocytes/100 WBC Auto (Un sp spec)Ordered By: ky Faust on 12-14-2024 Lymphocytes/100 WBC (Bld) 33.0 % 19-41 [facility] MCV (mean corpuscular volume ) determinationOrdered By: Yesika Faust on 12-14-2024 MCV (RBC) [Entitic vol] 94.7 fL 81-99 [facility] Mean corpuscular hemoglobin (MCH) determinationOrdered By: Yesika Faust on 12-14-2024 MCH (RBC) [Entitic mass] 30.9 pg 27.0-32.0 [facility] Mean corpuscular hemoglobin concentration (MCHC) determinationOrdered By: Yesika Faust on 12-14-2024 MCHC (RBC) [Mass/Vol] 32.6 g/dL 32-36 [facility] Mean platelet volume determi nationOrdered By: Yesika Faust on 12-14-2024 Platelet mean volume (Bld) [Entitic vol] 10.6 fL 6.2-12.0 [facility] Monocyte percentageOrdered B y: Yesika Faust on 12-14-2024 Monocytes/100 WBC (Bld) 9.7 % 0-10 [facility] Neutrophil percentageOrdered By: Yesika Faust on 12-14-2024 Neutrophils/100 WBC (Bld) 51.4 % 47-70 [facility] Nucleated red blood cell per centageOrdered By: Yesika Faust on 12-14-2024 Nucleated RBC/100 WBC (Bld) [Ratio] 0 % 0-5 [facility] Platelet countOrdered By: Tad Faust on 12-14-2024 Platelets (Bld) [#/Vol] 268 10*3/uL 150-450 [facility] Potassium (Unsp spec) [Mass/ Vol]Ordered By: Yesika Faust on 12-14-2024 Potassium [Moles/Vol] 4.3 mmol/L 3.3-5.1 [facility] Potassium measurement (mass/ volume)Ordered By: Yesika Faust on 12-14-2024 Potassium (Unsp spec) [Mass/Vol] 4.3 mmol/L 3.3-5.1 [facility] RBC Auto (Bld) [#/Vol]Ordere d By: Yesika Faust on 12-14-2024 RBC (Bld) [#/Vol] 4.92 10*6/uL 4.2-5.4 [facility] Serum creatinine measurement (mass/volume)Ordered By: Yesika Faust on 12-14-2024 Creatinine [Mass/Vol] 0.76 mg/dL 0.70-1.20 [facility] Serum glucose measurement (m ass/volume)Ordered By: Yesika Faust on 12-14-2024 Glucose [Mass/Vol] 105 mg/dL High 70-99 [facility] Serum or plasma calcium madi urement (mass/volume)Ordered By: Yesika Faust on 12-14-2024 Calcium [Mass/Vol] 9.7 mg/dL 7.6-11.0 [facility] Serum or plasma urea nitroge n measurement (mass/volume)Ordered By: Yesika Faust on 12-14-2024 Urea nitrogen [Mass/Vol] 23 mg/dL High 4-19 [facility] Sodium levelOrdered By: Jed Faust on 12-14-2024 Sodium [Moles/Vol] 141 mmol/L 133-145 [facility] White blood cell (WBC) count Ordered By: Yesika Faust on 12-14-2024 WBC (Bld) [#/Vol] 8.2 10*3/uL 4.4-11.0 [facility] Absolute lymphocyte countOrd ered By: Yesika Faust on 11-14-2024 Lymphocytes Auto (Unsp spec) [#/Vol] 2.15 10*3/uL 0.83-4.51 [facility] Absolute neutrophil countOrd ered By: Yesika Faust on 11-14-2024 Neutrophils (Bld) [#/Vol] 4.8 10*3/uL 2.0-7.7 [facility] Automated lymphocyte count a s percentage of total leukocytesOrdered By: Yesika Faust on 11-14-2024 Lymphocytes/100 WBC Auto (Unsp spec) 25.7 % 19-41 [facility] BUN/creatinine ratioOrdered By: Yesika Faust on 11-14-2024 Urea nitrogen/Creatinine [Mass ratio] 36.8 mg/mg High 10-20 [facility] Basophil percentageOrdered B y: Yesika Faust on 11-14-2024 Basophils/100 WBC (Bld) 1.0 % 0-1 [facility] Carbon dioxide measurementOr dered By: Yesika Faust on 11-14-2024 CO2 [Moles/Vol] 27.6 mmol/L 22.0-29.0 [facility] Chloride measurementOrdered By: Yesika Faust on 11-14-2024 Chloride [Moles/Vol] 101 mmol/L 96-108 [facility] Eosinophil percentageOrdered By: Yesika Faust 11-14-2024 Eosinophils/100 WBC (Bld) 7.9 % High 0-5 [facility] Erythrocyte distribution wid th (RBC) [Ratio]Ordered By: Yesika Faust on 11-14-2024 Erythrocyte distribution width (RBC) [Entitic vol] 46.1 fL High 35.1-43.9 [facility] Erythrocyte distribution wid th ratioOrdered By: Jedriverdalemacarena Faust on 11-14-2024 Erythrocyte distribution width (RBC) [Ratio] 12.9 % 11.6-14.6 [facility] Erythrocyte distribution wid th standard deviationOrdered By: enriquetariverdalemacarena Faust on 11-14-2024 Erythrocyte distribution width (RBC) [Ratio] 46.1 fl High 35.1-43.9 [facility] GFR/1.73 sq M.predicted giorgio g non-blacks MDRD (S/P/Bld) [Vol rate/Area]Ordered By: Yesika Faust on 11-14-2024 Estimated GFR (MDRD) Non-Af Amer 86 >60 [facility] Comment on above: mL/min/1.73m2 CKD-EP I Creatinine Equation (2020) Glomerular filtration rate ( GFR) estimation/1.73 sq m using serum, plasma, or whole bOrdered By: Yesika Faust on 11-14-2024 GFR/1.73 sq M.predicted among non-blacks MDRD (S/P/Bld) [Vol rate/Area] 86 mL/min/{1.73_m2} >60 [facility] Comment on above: mL/min/1.73m2 CKD-EP I Creatinine Equation (2020) Hematocrit Auto (Bld) [Volum e fraction]Ordered By: Yesika Faust 11-14-2024 Hematocrit (Bld) [Volume fraction] 46.9 % 37-47 [facility] Hemoglobin measurementOrdere d By: Yesika Faust on 11-14-2024 Hemoglobin (Bld) [Mass/Vol] 15.0 g/dL 12.0-15.0 [facility] Immature granulocytes/100 WB C Auto (Bld)Ordered By: Yesika Faust on 11-14-2024 Immature granulocytes/100 WBC (Bld) 0.500 % 0.0-0.9 [facility] Comment on above: IG% - Immature Granu locytes (promyelocytes, myelocytes and metamyelocytes) > 1% indicates that a LEFT SHIFT is Present. Lymphocytes Auto (Unsp spec) [#/Vol]Ordered By: Jedriverdalemacarena Faust on 11-14-2024 Lymphocytes (Bld) [#/Vol] 2.15 10*3/uL 0.83-4.51 [facility] Lymphocytes/100 WBC Auto (Un sp spec)Ordered By: Yesika Faust on 11-14-2024 Lymphocytes/100 WBC (Bld) 25.7 % 19-41 [facility] MCV (mean corpuscular volume ) determinationOrdered By: enriquetariverdalemacarena Faust on 11-14-2024 MCV (RBC) [Entitic vol] 96.9 fL 81-99 [facility] Mean corpuscular hemoglobin (MCH) determinationOrdered By: Jedriverdalemacarena Faust on 11-14-2024 MCH (RBC) [Entitic mass] 31.0 pg 27.0-32.0 [facility] Mean corpuscular hemoglobin concentration (MCHC) determinationOrdered By: Yesika Faust on 11-14-2024 MCHC (RBC) [Mass/Vol] 32.0 g/dL 32-36 [facility] Mean platelet volume determi nationOrdered By: ky Faust on 11-14-2024 Platelet mean volume (Bld) [Entitic vol] 10.4 fL 6.2-12.0 [facility] Monocyte percentageOrdered B y: Yesika Faust on 11-14-2024 Monocytes/100 WBC (Bld) 7.9 % 0-10 [facility] Neutrophil percentageOrdered By: Yesika Faust on 11-14-2024 Neutrophils/100 WBC (Bld) 57.0 % 47-70 [facility] Nucleated red blood cell per centageOrdered By: Yesika Faust on 11-14-2024 Nucleated RBC/100 WBC (Bld) [Ratio] 0 % 0-5 [facility] Platelet countOrdered By: Tad Faust on 11-14-2024 Platelets (Bld) [#/Vol] 269 10*3/uL 150-450 [facility] RBC Auto (Bld) [#/Vol]Ordere d By: Yesika Faust on 11-14-2024 RBC (Bld) [#/Vol] 4.84 10*6/uL 4.2-5.4 [facility] Serum creatinine measurement (mass/volume)Ordered By: Yesika Faust on 11-14-2024 Creatinine [Mass/Vol] 0.65 mg/dL Low 0.70-1.20 [facility] Serum glucose measurement (m ass/volume)Ordered By: Yesika Faust on 11-14-2024 Glucose [Mass/Vol] 97 mg/dL 70-99 [facility] Serum or plasma anion gap de termination (moles/volume)Ordered By: Yesika Faust on 11-14-2024 Anion gap [Moles/Vol] 12 mmol/L 5-15 [facility] Serum or plasma calcium madi urement (mass/volume)Ordered By: Yesika Faust on 11-14-2024 Calcium [Mass/Vol] 9.4 mg/dL 7.6-11.0 [facility] Serum or plasma potassium me asurementOrdered By: Yesika Faust on 11-14-2024 Potassium [Moles/Vol] 4.3 mmol/L 3.3-5.1 [facility] Comment on above: Hemolysis present, R esults could be affected. Serum or plasma sodium measu rement (moles/volume)Ordered By: Yesika Faust on 11-14-2024 Sodium [Moles/Vol] 141 mmol/L 133-145 [facility] Serum or plasma urea nitroge n measurement (mass/volume)Ordered By: Yesika Faust on 11-14-2024 Urea nitrogen [Mass/Vol] 24 mg/dL High 4-19 [facility] White blood cell (WBC) count Ordered By: Yesika Faust on 11-14-2024 WBC (Bld) [#/Vol] 8.4 10*3/uL 4.4-11.0 [facility] Absolute lymphocyte countOrd ered By: Yesika Faust on 10-17-2024 Lymphocytes Auto (Unsp spec) [#/Vol] 1.81 10*3/uL 0.83-4.51 [facility] Absolute neutrophil countOrd ered By: Yesika Faust on 10-17-2024 Neutrophils (Bld) [#/Vol] 3.3 10*3/uL 2.0-7.7 [facility] Automated lymphocyte count a s percentage of total leukocytesOrdered By: Yesika Faust on 10-17-2024 Lymphocytes/100 WBC Auto (Unsp spec) 26.5 % 19-41 [facility] Basophil percentageOrdered B y: Yesika Faust on 10-17-2024 Basophils/100 WBC (Bld) 0.7 % 0-1 [facility] Bilirubin directOrdered By: Yesika Faust on 10-17-2024 Bilirubin.direct [Mass/Vol] 0.09 mg/dL 0.00-0.30 [facility] Bilirubin, totalOrdered By: Yesika Faust on 10-17-2024 Bilirubin [Mass/Vol] 0.20 mg/dL 0.20-1.00 [facility] Comment on above: For patients on eltr ombopag therapy, use of Dimension [place] TBIL is not recommended. Blood urea nitrogen (BUN)/cr eatinine ratioOrdered By: Yesika Faust on 10-17-2024 Urea nitrogen/Creatinine [Mass ratio] 49.3 mg/mg High 10-20 [facility] Carbon dioxide measurementOr dered By: Yesika Faust on 10-17-2024 CO2 [Moles/Vol] 29.0 mmol/L 21.0-32.0 [facility] Chloride measurementOrdered By: Yesika Faust on 10-17-2024 Chloride [Moles/Vol] 106 mmol/L 98-107 [facility] Eosinophil percentageOrdered By: Yesika Faust on 10-17-2024 Eosinophils/100 WBC (Bld) 14.6 % High 0-5 [facility] Erythrocyte distribution wid th (RBC) [Ratio]Ordered By: Yesika Faust on 10-17-2024 Erythrocyte distribution width (RBC) [Entitic vol] 46.3 fL High 35.1-43.9 [facility] Erythrocyte distribution wid th ratioOrdered By: Yesika Faust on 10-17-2024 Erythrocyte distribution width (RBC) [Ratio] 13.0 % 11.6-14.6 [facility] Erythrocyte distribution wid th standard deviationOrdered By: Yesika Faust on 10-17-2024 Erythrocyte distribution width (RBC) [Ratio] 46.3 fl High 35.1-43.9 [facility] Estimated glomerular filtrat ion rate (GFR) AmericanOrdered By: Yesika Faust on 10-17-2024 Estimated GFR (MDRD) Amer 120 mL/min >60 [facility] Comment on above: GFR Calc Glomerular filtration rate ( GFR) estimationOrdered By: Yesika Faust on 10-17-2024 Estimated GFR (MDRD) Non-Af Amer 99 mL/min >60 [facility] Comment on above: Non- GFR Calc GFR/1.73 sq M.predicted among non-blacks MDRD (S/P/Bld) [Vol rate/Area] 99 mL/min/{1.73_m2} >60 [facility] Comment on above: Non- GFR Calc Glucose measurementOrdered B y: Yesika Faust on 10-17-2024 Glucose [Mass/Vol] 86 mg/dL 74-106 [facility] Hematocrit Auto (Bld) [Volum e fraction]Ordered By: Yesika Faust on 10-17-2024 Hematocrit (Bld) [Volume fraction] 41.4 % 37-47 [facility] Hemoglobin measurementOrdere d By: Yesika Faust on 10-17-2024 Hemoglobin (Bld) [Mass/Vol] 13.5 g/dL 12.0-15.0 [facility] Immature granulocytes/100 WB C Auto (Bld)Ordered By: Yesika Faust on 10-17-2024 Immature granulocytes/100 WBC (Bld) 0.400 % 0.0-0.9 [facility] Comment on above: IG% - Immature Granu locytes (promyelocytes, myelocytes and metamyelocytes) > 1% indicates that a LEFT SHIFT is Present. Laboratory - Chemistry and C hemistry - challengeOrdered By: Yesika Faust on 10-17-2024 AST [Catalytic activity/Vol] 12 U/L Low 15-37 [facility] Lymphocytes Auto (Unsp spec) [#/Vol]Ordered By: Yesika Faust on 10-17-2024 Lymphocytes (Bld) [#/Vol] 1.81 10*3/uL 0.83-4.51 [facility] Lymphocytes/100 WBC Auto (Un sp spec)Ordered By: Yesika Faust on 10-17-2024 Lymphocytes/100 WBC (Bld) 26.5 % 19-41 [facility] MCV (mean corpuscular volume ) determinationOrdered By: Yesika Fasut on 10-17-2024 MCV (RBC) [Entitic vol] 98.6 fL 81-99 [facility] Mean corpuscular hemoglobin (MCH) determinationOrdered By: Yesika Faust on 10-17-2024 MCH (RBC) [Entitic mass] 32.1 pg High 27.0-32.0 [facility] Mean corpuscular hemoglobin concentration (MCHC) determinationOrdered By: Yesika Faust on 10-17-2024 MCHC (RBC) [Mass/Vol] 32.6 g/dL 32-36 [facility] Mean platelet volume determi nationOrdered By: Yesika Faust on 10-17-2024 Platelet mean volume (Bld) [Entitic vol] 10.6 fL 6.2-12.0 [facility] Monocyte percentageOrdered B y: Yesika Faust on 10-17-2024 Monocytes/100 WBC (Bld) 9.5 % 0-10 [facility] Neutrophil percentageOrdered By: Yesika Faust on 10-17-2024 Neutrophils/100 WBC (Bld) 48.3 % 47-70 [facility] Nucleated red blood cell per centageOrdered By: Yesika Faust on 10-17-2024 Nucleated RBC/100 WBC (Bld) [Ratio] 0 % 0-5 [facility] Platelet countOrdered By: Tad Faust on 10-17-2024 Platelets (Bld) [#/Vol] 232 10*3/uL 150-450 [facility] Potassium measurementOrdered By: Yesika Faust on 10-17-2024 Potassium [Moles/Vol] 4.0 mmol/L 3.5-5.1 [facility] RBC Auto (Bld) [#/Vol]Ordere d By: Yesika Faust on 10-17-2024 RBC (Bld) [#/Vol] 4.20 10*6/uL 4.2-5.4 [facility] Serum anion gap measurementO rdered By: Yesika Faust on 10-17-2024 Anion gap [Moles/Vol] 5 mmol/L 5-15 [facility] Serum globulin measurementOr dered By: Yesika Faust on 10-17-2024 Globulin (S) [Mass/Vol] 3.2 g/dL 2.2-4.2 [facility] Serum or plasma alanine vela otransferase (ALT) measurementOrdered By: Yesika Faust on 10-17-2024 ALT [Catalytic activity/Vol] 19 U/L 13-56 [facility] Serum or plasma albumin madi urement (mass/volume)Ordered By: Yesika Faust on 10-17-2024 Albumin [Mass/Vol] 3.1 g/dL Low 3.2-5.0 [facility] Serum or plasma alkaline mariaelena sphatase measurementOrdered By: Yesika Faust on 10-17-2024 ALP [Catalytic activity/Vol] 108 U/L 45-117 [facility] Serum or plasma calcium madi urement (mass/volume)Ordered By: Yesika Faust on 10-17-2024 Calcium [Mass/Vol] 9.1 mg/dL 8.5-10.1 [facility] Serum or plasma creatinine m easurement (mass/volume)Ordered By: Yesika Faust on 10-17-2024 Creatinine [Mass/Vol] 0.61 mg/dL 0.55-1.02 [facility] Comment on above: The validity of the calculated GFR & GFRAA in patients over 70 years has not been determined. Clinical correlation is essential. Serum or plasma urea nitroge n measurement (mass/volume)Ordered By: Yesika Faust on 10-17-2024 Urea nitrogen [Mass/Vol] 30 mg/dL High 7-18 [facility] Sodium levelOrdered By: Jed Faust on 10-17-2024 Sodium [Moles/Vol] 140 mmol/L 136-145 [facility] Total proteinOrdered By: Randall Faust on 10-17-2024 Protein [Mass/Vol] 6.3 g/dL Low 6.4-8.2 [facility] White blood cell (WBC) count Ordered By: Yesika Faust on 10-17-2024 WBC (Bld) [#/Vol] 6.8 10*3/uL 4.4-11.0 [facility] Bilirubin Test strip Ql (U)O rdered By: Yesika Faust on 10-14-2024 Bilirubin Ql (U) Negative Negative [facility] Epithelial cells.squamous LM Ql (Urine sed)Ordered By: Yesika Faust on 10-14-2024 Epithelial cells.squamous LM.HPF (Urine sed) [#/Area] 0 /[HPF] 5-10 [facility] Glucose Ql (U)Ordered By: Tad Faust on 10-14-2024 Urine Glucose (UA) Normal mg/dl Normal [facility] Ketones Test strip Ql (U)Ord ered By: Yesika Faust on 10-14-2024 Ketones Ql (U) Negative Negative [facility] Microscopic analysis of urin e for red blood cells (RBC)Ordered By: Yesika Faust on 10-14-2024 Microscopic analysis of urine for red blood cells (RBC) 0 SEEN /hpf 0-5 [facility] Urine RBC 0 SEEN /hpf 0-5 [facility] Mucus LM Ql (Urine sed)Order ed By: Yesika Faust on 10-14-2024 Mucus Ql (Urine sed) 0 SEEN /hpf [facility] Nitrite Test strip Ql (U)Ord ered By: Yesika Faust on 10-14-2024 Nitrite Ql (U) Positive High Negative [facility] Protein Test strip Ql (U)Ord ered By: Yesika Faust on 10-14-2024 Protein Ql (U) 15 mg/dl High Negative [facility] Squamous epithelial cells de tection in urine sediment by light microscopyOrdered By: Yesika Faust on 10-14-2024 Epithelial cells.squamous LM Ql (Urine sed) 0 SEEN /hpf 5-10 [facility] Triple phosphate crystals LM Ql (Urine sed)Ordered By: Yesika Faust on 10-14-2024 Urine Triple Phosphate Crystals 1+ /hpf [facility] Triple phosphate crystals de tection in urine sediment by light microscopyOrdered By: Yesika Faust on 10-14-2024 Triple phosphate crystals LM Ql (Urine sed) 1+ /hpf [facility] Urine blood detectionOrdered By: Yesika Faust on 10-14-2024 Urine Occult Blood Negative Negative [facility] Urine clarityOrdered By: Randall Faust on 10-14-2024 Clarity (U) Sl. Cloudy Clear [facility] Urine color determinationOrd ered By: Yesika Faust on 10-14-2024 Color (U) Yellow Yellow [facility] Urine cultureOrdered By: Randall Faust on 10-14-2024 Bacteria identified Cx Nom (U) Proteus mirabilis Abnormal [facility] Urine glucose detectionOrder ed By: Yesika Faust on 10-14-2024 Glucose Ql (U) Normal mg/dl Normal [facility] Urine leukocyte esterase det ection by dipstickOrdered By: Yesika Faust on 10-14-2024 Leukocyte esterase Test strip Ql (U) 25 /ul High Negative [facility] Urine pHOrdered By: Fernando Faust on 10-14-2024 pH (U) 9.0 [pH] 5.0 - 8.0 [facility] Urine sediment bacteria coun t by microscopy (number/high power field)Ordered By: Yesika Faust on 10-14-2024 Bacteria LM.HPF (Urine sed) [#/Area] 1 /[HPF] None Seen [facility] Urine specific gravity measu rementOrdered By: Yesika Faust on 10-14-2024 Specific gravity (U) [Rel density] 1.015 1.002-1.03 0 [facility] Urine urobilinogen measureme ntOrdered By: Yesika Faust on 10-14-2024 Urobilinogen Ql (U) Normal mg/dl Normal [facility] Urobilinogen Ql (U)Ordered B y: Yesika Faust on 10-14-2024 Urine Urobilinogen Normal mg/dl Normal [facility] White blood cell countOrdere d By: Yesika Faust on 10-14-2024 Urine WBC 0 SEEN /hpf 0-5 [facility] White blood cell count 0 SEEN /hpf 0-5 [facility] Absolute neutrophil countOrd ered By: Yesika Faust on 09-16-2024 Neutrophils (Bld) [#/Vol] 4.4 10*3/uL 2.0-7.7 [facility] Basophil percentageOrdered B y: Yesika Faust on 09-16-2024 Basophils/100 WBC (Bld) 0.7 % 0-1 [facility] Blood urea nitrogen (BUN)/cr eatinine ratioOrdered By: Yesika Faust on 09-16-2024 Urea nitrogen/Creatinine [Mass ratio] 40.5 mg/mg High 10-20 [facility] Carbon dioxide measurementOr dered By: Yesika Faust on 09-16-2024 CO2 [Moles/Vol] 28.0 mmol/L 21.0-32.0 [facility] Chloride measurementOrdered By: Yesika Faust on 09-16-2024 Chloride [Moles/Vol] 106 mmol/L 98-107 [facility] Eosinophil percentageOrdered By: Yesika Faust on 09-16-2024 Eosinophils/100 WBC (Bld) 3.0 % 0-5 [facility] Erythrocyte distribution wid th (RBC) [Ratio]Ordered By: ky aFust on 09-16-2024 Erythrocyte distribution width (RBC) [Entitic vol] 48.3 fL High 35.1-43.9 [facility] Erythrocyte distribution wid th ratioOrdered By: ky Faust on 09-16-2024 Erythrocyte distribution width (RBC) [Ratio] 13.2 % 11.6-14.6 [facility] Estimated glomerular filtrat ion rate (GFR) AmericanOrdered By: ky Faust on 09-16-2024 Estimated GFR (MDRD) Amer 162 mL/min >60 [facility] Comment on above: GFR Calc Glomerular filtration rate ( GFR) estimationOrdered By: Yesika Faust on 09-16-2024 Estimated GFR (MDRD) Non-Af Amer 134 mL/min >60 [facility] Comment on above: Non- GFR Calc Glucose measurementOrdered B y: Yesika Faust on 09-16-2024 Glucose [Mass/Vol] 89 mg/dL 74-106 [facility] Hematocrit Auto (Bld) [Volum e fraction]Ordered By: ky Faust on 09-16-2024 Hematocrit (Bld) [Volume fraction] 38.9 % 37-47 [facility] Hemoglobin measurementOrdere d By: Yesika Faust on 09-16-2024 Hemoglobin (Bld) [Mass/Vol] 12.4 g/dL 12.0-15.0 [facility] Immature granulocytes/100 WB C Auto (Bld)Ordered By: ky Faust on 09-16-2024 Immature granulocytes/100 WBC (Bld) 0.300 % 0.0-0.9 [facility] Comment on above: IG% - Immature Granu locytes (promyelocytes, myelocytes and metamyelocytes) > 1% indicates that a LEFT SHIFT is Present. Lymphocytes Auto (Unsp spec) [#/Vol]Ordered By: Yesika Faust on 09-16-2024 Lymphocytes (Bld) [#/Vol] 1.59 10*3/uL 0.83-4.51 [facility] Lymphocytes/100 WBC Auto (Un sp spec)Ordered By: Yesika Faust on 09-16-2024 Lymphocytes/100 WBC (Bld) 23.1 % 19-41 [facility] MCV (mean corpuscular volume ) determinationOrdered By: Yesika Faust on 09-16-2024 MCV (RBC) [Entitic vol] 98.7 fL 81-99 [facility] Mean corpuscular hemoglobin (MCH) determinationOrdered By: Yesika Faust on 09-16-2024 MCH (RBC) [Entitic mass] 31.5 pg 27.0-32.0 [facility] Mean corpuscular hemoglobin concentration (MCHC) determinationOrdered By: ky Faust on 09-16-2024 MCHC (RBC) [Mass/Vol] 31.9 g/dL Low 32-36 [facility] Mean platelet volume determi nationOrdered By: Yesika Faust on 09-16-2024 Platelet mean volume (Bld) [Entitic vol] 10.6 fL 6.2-12.0 [facility] Monocyte percentageOrdered B y: Yesika Faust on 09-16-2024 Monocytes/100 WBC (Bld) 9.6 % 0-10 [facility] Neutrophil percentageOrdered By: Yesika Faust on 09-16-2024 Neutrophils/100 WBC (Bld) 63.3 % 47-70 [facility] Nucleated red blood cell per centageOrdered By: ky Faust on 09-16-2024 Nucleated RBC/100 WBC (Bld) [Ratio] 0 % 0-5 [facility] Platelet countOrdered By: Tad Faust on 09-16-2024 Platelets (Bld) [#/Vol] 241 10*3/uL 150-450 [facility] Potassium measurementOrdered By: Yesika Faust on 09-16-2024 Potassium [Moles/Vol] 3.8 mmol/L 3.5-5.1 [facility] RBC Auto (Bld) [#/Vol]Ordere d By: Yesika Faust on 09-16-2024 RBC (Bld) [#/Vol] 3.94 10*6/uL Low 4.2-5.4 [facility] Serum anion gap measurementO rdered By: Yesika Faust on 09-16-2024 Anion gap [Moles/Vol] 5 mmol/L 5-15 [facility] Serum or plasma calcium madi urement (mass/volume)Ordered By: Yesika Faust on 09-16-2024 Calcium [Mass/Vol] 8.8 mg/dL 8.5-10.1 [facility] Serum or plasma creatinine m easurement (mass/volume)Ordered By: Yesika Faust on 09-16-2024 Creatinine [Mass/Vol] 0.47 mg/dL Low 0.55-1.02 [facility] Comment on above: The validity of the calculated GFR & GFRAA in patients over 70 years has not been determined. Clinical correlation is essential. Serum or plasma urea nitroge n measurement (mass/volume)Ordered By: Yesika Faust on 09-16-2024 Urea nitrogen [Mass/Vol] 19 mg/dL High 7-18 [facility] Sodium levelOrdered By: Jed Faust on 09-16-2024 Sodium [Moles/Vol] 139 mmol/L 136-145 [facility] White blood cell (WBC) count Ordered By: Yesika Faust on 09-16-2024 WBC (Bld) [#/Vol] 6.9 10*3/uL 4.4-11.0 [facility] Absolute neutrophil countOrd ered By: Yesika Faust on 08-16-2024 Neutrophils (Bld) [#/Vol] 3.4 10*3/uL 2.0-7.7 [facility] Basophil percentageOrdered B y: Yesika Faust on 08-16-2024 Basophils/100 WBC (Bld) 0.7 % 0-1 [facility] Blood urea nitrogen (BUN)/cr eatinine ratioOrdered By: Yesika Faust on 08-16-2024 Urea nitrogen/Creatinine [Mass ratio] 35.8 mg/mg High 10-20 [facility] Carbon dioxide measurementOr dered By: Yesika Faust on 08-16-2024 CO2 [Moles/Vol] 28.0 mmol/L 21.0-32.0 [facility] Chloride measurementOrdered By: Yesika Faust on 08-16-2024 Chloride [Moles/Vol] 110 mmol/L High 98-107 [facility] Eosinophil percentageOrdered By: Yesika Faust on 08-16-2024 Eosinophils/100 WBC (Bld) 3.1 % 0-5 [facility] Erythrocyte distribution wid th (RBC) [Ratio]Ordered By: Yesika Faust on 08-16-2024 Erythrocyte distribution width (RBC) [Entitic vol] 50.8 fL High 35.1-43.9 [facility] Erythrocyte distribution wid th ratioOrdered By: Yesika Faust on 08-16-2024 Erythrocyte distribution width (RBC) [Ratio] 14.0 % 11.6-14.6 [facility] Estimated glomerular filtrat ion rate (GFR) AmericanOrdered By: Yesika Faust on 08-16-2024 Estimated GFR (MDRD) Amer 141 mL/min >60 [facility] Comment on above: GFR Calc Glomerular filtration rate ( GFR) estimationOrdered By: Yesika Faust on 08-16-2024 Estimated GFR (MDRD) Non-Af Amer 116 mL/min >60 [facility] Comment on above: Non- GFR Calc Glucose measurementOrdered B y: Yeskia Faust on 08-16-2024 Glucose [Mass/Vol] 85 mg/dL 74-106 [facility] Hematocrit Auto (Bld) [Volum e fraction]Ordered By: Yesika Faust on 08-16-2024 Hematocrit (Bld) [Volume fraction] 41.2 % 37-47 [facility] Hemoglobin measurementOrdere d By: Yesika Faust on 08-16-2024 Hemoglobin (Bld) [Mass/Vol] 12.9 g/dL 12.0-15.0 [facility] Immature granulocytes/100 WB C Auto (Bld)Ordered By: Yesika Faust on 08-16-2024 Immature granulocytes/100 WBC (Bld) 0.300 % 0.0-0.9 [facility] Comment on above: IG% - Immature Granu locytes (promyelocytes, myelocytes and metamyelocytes) > 1% indicates that a LEFT SHIFT is Present. Lymphocytes Auto (Unsp spec) [#/Vol]Ordered By: Yesika Faust on 08-16-2024 Lymphocytes (Bld) [#/Vol] 1.61 10*3/uL 0.83-4.51 [facility] Lymphocytes/100 WBC Auto (Un sp spec)Ordered By: Yesika Faust on 08-16-2024 Lymphocytes/100 WBC (Bld) 27.4 % 19-41 [facility] MCV (mean corpuscular volume ) determinationOrdered By: Yesika Faust on 08-16-2024 MCV (RBC) [Entitic vol] 99.0 fL 81-99 [facility] Mean corpuscular hemoglobin (MCH) determinationOrdered By: enriquetariverdalemacarena Faust on 08-16-2024 MCH (RBC) [Entitic mass] 31.0 pg 27.0-32.0 [facility] Mean corpuscular hemoglobin concentration (MCHC) determinationOrdered By: Yesika Faust on 08-16-2024 MCHC (RBC) [Mass/Vol] 31.3 g/dL Low 32-36 [facility] Mean platelet volume determi nationOrdered By: Yesika Faust on 08-16-2024 Platelet mean volume (Bld) [Entitic vol] 10.8 fL 6.2-12.0 [facility] Monocyte percentageOrdered B y: Yesika Faust on 08-16-2024 Monocytes/100 WBC (Bld) 10.5 % High 0-10 [facility] Neutrophil percentageOrdered By: Yesika Faust on 08-16-2024 Neutrophils/100 WBC (Bld) 58.0 % 47-70 [facility] Nucleated red blood cell per centageOrdered By: Yesika Faust on 08-16-2024 Nucleated RBC/100 WBC (Bld) [Ratio] 0 % 0-5 [facility] Platelet countOrdered By: Tad shymacarena Butterfieldkathierafaela on 08-16-2024 Platelets (Bld) [#/Vol] 242 10*3/uL 150-450 [facility] Potassium measurementOrdered By: Jedsaeidmacarena Butterfieldkathierafaela on 08-16-2024 Potassium [Moles/Vol] 3.9 mmol/L 3.5-5.1 [facility] RBC Auto (Bld) [#/Vol]Ordere d By: Tadshymacarena Butterfieldandreea on 08-16-2024 RBC (Bld) [#/Vol] 4.16 10*6/uL Low 4.2-5.4 [facility] Serum anion gap measurementO rdered By: Tadenriquetasaeidmacarena Butterfieldkathierafaela on 08-16-2024 Anion gap [Moles/Vol] 4 mmol/L Low 5-15 [facility] Serum or plasma calcium madi urement (mass/volume)Ordered By: Yesika Butterfieldkathierafaela on 08-16-2024 Calcium [Mass/Vol] 8.9 mg/dL 8.5-10.1 [facility] Serum or plasma creatinine m easurement (mass/volume)Ordered By: Yesika Butterfieldkathierafaela on 08-16-2024 Creatinine [Mass/Vol] 0.53 mg/dL Low 0.55-1.02 [facility] Comment on above: The validity of the calculated GFR & GFRAA in patients over 70 years has not been determined. Clinical correlation is essential. Serum or plasma urea nitroge n measurement (mass/volume)Ordered By: Yesika Faust on 08-16-2024 Urea nitrogen [Mass/Vol] 19 mg/dL High 7-18 [facility] Sodium levelOrdered By: Jed denae Scoutkathierafaela on 08-16-2024 Sodium [Moles/Vol] 142 mmol/L 136-145 [facility] White blood cell (WBC) count Ordered By: Jedsaeidmacarena Butterfieldkathierafaela on 08-16-2024 WBC (Bld) [#/Vol] 5.9 10*3/uL 4.4-11.0 [facility] Absolute lymphocyte countOrd ered By: ky Faust on 11-17-2023 Lymphocytes Auto (Unsp spec) [#/Vol] 1.64 10*3/uL 0.83-4.51 [facility] Automated lymphocyte count a s percentage of total leukocytesOrdered By: Yesika Faust on 11-17-2023 Lymphocytes/100 WBC Auto (Unsp spec) 26.6 % 19-41 [facility] Basophil percentageOrdered B y: Yesika Faust on 11-17-2023 Basophils/100 WBC (Bld) 0.6 % 0-1 [facility] Chloride [Moles/Vol] 109 mmol/L 98-107 [facility] Eosinophils/100 WBC (Bld) 1.8 % 0-5 [facility] Glucose [Mass/Vol] 91 mg/dL 74-106 [facility] Hemoglobin (Bld) [Mass/Vol] 12.9 g/dL 12.0-15.0 [facility] Monocytes/100 WBC (Bld) 9.4 % 0-10 [facility] Neutrophils (Bld) [#/Vol] 3.8 10*3/uL 2.0-7.7 [facility] Neutrophils/100 WBC (Bld) 61.1 % 47-70 [facility] Potassium [Moles/Vol] 3.8 mmol/L 3.5-5.1 [facility] Sodium [Moles/Vol] 140 mmol/L 136-145 [facility] WBC (Bld) [#/Vol] 6.2 10*3/uL 4.4-11.0 [facility] Determination of erythrocyte mean corpuscular volume (MCV)Ordered By: Yesika Faust on 11-17-2023 MCV (RBC) [Entitic vol] 91.8 fL 81-99 [facility] Erythrocyte distribution wid th ratioOrdered By: enriquetariverdalemacarena Faust on 11-17-2023 Erythrocyte distribution width (RBC) [Ratio] 14.3 % 11.6-14.6 [facility] Erythrocyte distribution wid th standard deviationOrdered By: Yesika Faust on 11-17-2023 Erythrocyte distribution width (RBC) [Entitic vol] 48.0 fL 35.1-43.9 [facility] Hematocrit Auto (Bld) [Volum e fraction]Ordered By: Yesika Faust on 11-17-2023 Hematocrit (Bld) [Volume fraction] 39.3 % 37-47 [facility] Immature granulocytes/100 WB C Auto (Bld)Ordered By: Yesika Faust on 11-17-2023 Immature granulocytes/100 WBC (Bld) 0.500 % 0.0-0.9 [facility] Comment on above: IG% - Immature Granu locytes (promyelocytes, myelocytes and metamyelocytes) > 1% indicates that a LEFT SHIFT is Present. Laboratory - Chemistry and C hemistry - challengeOrdered By: Yesika Faust on 11-17-2023 CO2 [Moles/Vol] 28.0 mmol/L 21.0-32.0 [facility] Urea nitrogen/Creatinine [Mass ratio] 18.6 mg/mg 10-20 [facility] Laboratory - Hematology and Cell countsOrdered By: Yesika Faust on 11-17-2023 MCH (RBC) [Entitic mass] 30.1 pg 27.0-32.0 [facility] MCHC (RBC) [Mass/Vol] 32.8 g/dL 32-36 [facility] Nucleated RBC/100 WBC (Bld) [Ratio] 0 % 0-5 [facility] Platelet mean volume (Bld) [Entitic vol] 9.9 fL 6.2-12.0 [facility] Platelets (Bld) [#/Vol] 230 10*3/uL 150-450 [facility] No Panel InformationOrdered By: Yesika Faust on 11-17-2023 Estimated GFR (MDRD) Amer 94 mL/min >60 [facility] Comment on above: GFR Calc Estimated GFR (MDRD) Non-Af Amer 78 mL/min >60 [facility] Comment on above: Non- GFR Calc RBC Auto (Bld) [#/Vol]Ordere d By: Yesika Faust on 11-17-2023 RBC (Bld) [#/Vol] 4.28 10*6/uL 4.2-5.4 [facility] Serum or plasma calcium madi urement (mass/volume)Ordered By: Yesika Faust on 11-17-2023 Calcium [Mass/Vol] 9.2 mg/dL 8.5-10.1 [facility] Serum or plasma creatinine m easurement (mass/volume)Ordered By: ky Faust on 11-17-2023 Creatinine [Mass/Vol] 0.75 mg/dL 0.55-1.02 [facility] Comment on above: The validity of the calculated GFR & GFRAA in patients over 70 years has not been determined. Clinical correlation is essential. Serum or plasma urea nitroge n measurement (mass/volume)Ordered By: Yesika Faust on 11-17-2023 Urea nitrogen [Mass/Vol] 14 mg/dL 7-18 [facility] Thin prep Papanicolaou smear with manual screeningOrdered By: [facility] Scoutrafaela on 11-17-2023 Thin prep Papanicolaou smear with manual screening 3 5-15 [facility] Absolute lymphocyte countOrd ered By: Yesika Faust on 08-18-2023 Lymphocytes Auto (Unsp spec) [#/Vol] 1.67 10*3/uL 0.83-4.51 [facility] Basophil percentageOrdered B y: Yesika Faust on 08-18-2023 Basophils/100 WBC (Bld) 0.7 % 0-1 [facility] Chloride [Moles/Vol] 109 mmol/L 98-107 [facility] Eosinophils/100 WBC (Bld) 2.8 % 0-5 [facility] Glucose [Mass/Vol] 89 mg/dL 74-106 [facility] Neutrophils (Bld) [#/Vol] 3.1 10*3/uL 2.0-7.7 [facility] Neutrophils/100 WBC (Bld) 56.1 % 47-70 [facility] Potassium [Moles/Vol] 4.0 mmol/L 3.5-5.1 [facility] Sodium [Moles/Vol] 141 mmol/L 136-145 [facility] WBC (Bld) [#/Vol] 5.4 10*3/uL 4.4-11.0 [facility] Blood erythrocytes count (nu mber/volume)Ordered By: Yesika Faust on 08-18-2023 RBC (Bld) [#/Vol] 4.55 10*6/uL 4.2-5.4 [facility] Blood hemoglobin measurement (mass/volume)Ordered By: Yesika Faust on 08-18-2023 Hemoglobin (Bld) [Mass/Vol] 12.9 g/dL 12.0-15.0 [facility] Blood lymphocytes/100 leukoc ytesOrdered By: enriquetariverdalemacarena Faust on 08-18-2023 Lymphocytes/100 WBC (Bld) 30.8 % 19-41 [facility] Blood monocytes/100 leukocyt esOrdered By: ky Faust on 08-18-2023 Monocytes/100 WBC (Bld) 9.4 % 0-10 [facility] Blood platelet mean volumeOr dered By: Yesika Faust on 08-18-2023 Platelet mean volume (Bld) [Entitic vol] 10.4 fL 6.2-12.0 [facility] Determination of erythrocyte mean corpuscular volume (MCV)Ordered By: Yesika Faust on 08-18-2023 MCV (RBC) [Entitic vol] 89.5 fL 81-99 [facility] Hematocrit Auto (Bld) [Volum e fraction]Ordered By: Yesika Faust on 08-18-2023 Hematocrit (Bld) [Volume fraction] 40.7 % 37-47 [facility] Laboratory - Chemistry and C hemistry - challengeOrdered By: Yesika Faust on 08-18-2023 CO2 [Moles/Vol] 29.0 mmol/L 21.0-32.0 [facility] Urea nitrogen/Creatinine [Mass ratio] 16.6 mg/mg 10-20 [facility] Laboratory - Hematology and Cell countsOrdered By: Yesika Faust on 08-18-2023 Erythrocyte distribution width (RBC) [Entitic vol] 45.5 fL 35.1-43.9 [facility] Erythrocyte distribution width (RBC) [Ratio] 13.9 % 11.6-14.6 [facility] Immature granulocytes/100 WBC (Bld) 0.200 % 0.0-0.9 [facility] Comment on above: IG% - Immature Granu locytes (promyelocytes, myelocytes and metamyelocytes) > 1% indicates that a LEFT SHIFT is Present. MCH (RBC) [Entitic mass] 28.4 pg 27.0-32.0 [facility] Nucleated RBC/100 WBC (Bld) [Ratio] 0 % 0-5 [facility] MCHC Auto (RBC) [Mass/Vol]Or dered By: Yesika Faust on 08-18-2023 MCHC (RBC) [Mass/Vol] 31.7 g/dL 32-36 [facility] No Panel InformationOrdered By: Yesika Faust on 08-18-2023 Estimated GFR (MDRD) Amer 109 mL/min >60 [facility] Comment on above: GFR Calc Estimated GFR (MDRD) Non-Af Amer 90 mL/min >60 [facility] Comment on above: Non- GFR Calc Platelets bldOrdered By: Randall Faust on 08-18-2023 Platelets (Bld) [#/Vol] 221 10*3/uL 150-450 [facility] Serum or plasma calcium madi urement (mass/volume)Ordered By: Yesika Faust on 08-18-2023 Calcium [Mass/Vol] 8.8 mg/dL 8.5-10.1 [facility] Serum or plasma creatinine m easurement (mass/volume)Ordered By: Yesika Faust on 08-18-2023 Creatinine [Mass/Vol] 0.66 mg/dL 0.55-1.02 [facility] Comment on above: The validity of the calculated GFR & GFRAA in patients over 70 years has not been determined. Clinical correlation is essential. Serum or plasma urea nitroge n measurement (mass/volume)Ordered By: Yesika Faust on 08-18-2023 Urea nitrogen [Mass/Vol] 11 mg/dL 7-18 [facility] Thin prep Papanicolaou smear with manual screeningOrdered By: Yesika Faust on 08-18-2023 Thin prep Papanicolaou smear with manual screening 3 5-15 [facility] Absolute lymphocyte countOrd ered By: Yesika Faust on 05-19-2023 Lymphocytes Auto (Unsp spec) [#/Vol] 1.86 10*3/uL 0.83-4.51 [facility] Basophil percentageOrdered B y: Yesika Faust on 05-19-2023 Basophils/100 WBC (Bld) 0.8 % 0-1 [facility] Chloride [Moles/Vol] 107 mmol/L 98-107 [facility] Eosinophils/100 WBC (Bld) 1.5 % 0-5 [facility] Glucose [Mass/Vol] 125 mg/dL 74-106 [facility] Comment on above: Fasting Glucose resu lt from 100 to 125 mg/dL suggests IMPAIRED HOMEOSTASIS per A.D.A. criteria. Neutrophils (Bld) [#/Vol] 3.4 10*3/uL 2.0-7.7 [facility] Neutrophils/100 WBC (Bld) 55.5 % 47-70 [facility] Potassium [Moles/Vol] 3.6 mmol/L 3.5-5.1 [facility] Sodium [Moles/Vol] 139 mmol/L 136-145 [facility] WBC (Bld) [#/Vol] 6.2 10*3/uL 4.4-11.0 [facility] Blood erythrocytes count (nu mber/volume)Ordered By: Yesika Faust on 05-19-2023 RBC (Bld) [#/Vol] 4.24 10*6/uL 4.2-5.4 [facility] Blood hemoglobin measurement (mass/volume)Ordered By: Yesika Faust on 05-19-2023 Hemoglobin (Bld) [Mass/Vol] 11.7 g/dL 12.0-15.0 [facility] Blood lymphocytes/100 leukoc ytesOrdered By: Yesika Faust on 05-19-2023 Lymphocytes/100 WBC (Bld) 30.1 % 19-41 [facility] Blood monocytes/100 leukocyt esOrdered By: ky Faust on 05-19-2023 Monocytes/100 WBC (Bld) 11.8 % 0-10 [facility] Blood platelet mean volumeOr dered By: Yesika Faust on 05-19-2023 Platelet mean volume (Bld) [Entitic vol] 10.5 fL 6.2-12.0 [facility] Determination of erythrocyte mean corpuscular volume (MCV)Ordered By: enriquetariverdalemacarena Faust on 05-19-2023 MCV (RBC) [Entitic vol] 90.3 fL 81-99 [facility] Hematocrit Auto (Bld) [Volum e fraction]Ordered By: enriquetariverdalemacarena Faust on 05-19-2023 Hematocrit (Bld) [Volume fraction] 38.3 % 37-47 [facility] Laboratory - Chemistry and C hemistry - challengeOrdered By: enriquetariverdalemacarena Faust on 05-19-2023 CO2 [Moles/Vol] 29.0 mmol/L 21.0-32.0 [facility] Urea nitrogen/Creatinine [Mass ratio] 21.6 mg/mg 10-20 [facility] Laboratory - Hematology and Cell countsOrdered By: ky Faust on 05-19-2023 Erythrocyte distribution width (RBC) [Entitic vol] 50.2 fL 35.1-43.9 [facility] Erythrocyte distribution width (RBC) [Ratio] 15.2 % 11.6-14.6 [facility] Immature granulocytes/100 WBC (Bld) 0.300 % 0.0-0.9 [facility] Comment on above: IG% - Immature Granu locytes (promyelocytes, myelocytes and metamyelocytes) > 1% indicates that a LEFT SHIFT is Present. MCH (RBC) [Entitic mass] 27.6 pg 27.0-32.0 [facility] Nucleated RBC/100 WBC (Bld) [Ratio] 0 % 0-5 [facility] MCHC Auto (RBC) [Mass/Vol]Or dered By: enriquetariverdalemacarena Faust on 05-19-2023 MCHC (RBC) [Mass/Vol] 30.5 g/dL 32-36 [facility] No Panel InformationOrdered By: [facility] on 05-19-2023 Estimated GFR (MDRD) Amer 74 mL/min >60 [facility] Comment on above: GFR Calc Estimated GFR (MDRD) Non-Af Amer 61 mL/min >60 [facility] Comment on above: Non- GFR Calc Platelets bldOrdered By: Randall Faust on 05-19-2023 Platelets (Bld) [#/Vol] 234 10*3/uL 150-450 [facility] Serum or plasma calcium madi urement (mass/volume)Ordered By: Yesika Faust on 05-19-2023 Calcium [Mass/Vol] 8.7 mg/dL 8.5-10.1 [facility] Serum or plasma creatinine m easurement (mass/volume)Ordered By: Yesika Faust on 05-19-2023 Creatinine [Mass/Vol] 0.92 mg/dL 0.55-1.02 [facility] Comment on above: The validity of the calculated GFR & GFRAA in patients over 70 years has not been determined. Clinical correlation is essential. Serum or plasma urea nitroge n measurement (mass/volume)Ordered By: Yesika Faust on 05-19-2023 Urea nitrogen [Mass/Vol] 20 mg/dL 7-18 [facility] Thin prep Papanicolaou smear with manual screeningOrdered By: Yesika Faust on 05-19-2023 Thin prep Papanicolaou smear with manual screening 3 5-15 [facility] Absolute lymphocyte countOrd ered By: Yesika Faust on 02-17-2023 Lymphocytes Auto (Unsp spec) [#/Vol] 1.67 10*3/uL 0.83-4.51 [facility] Basophil percentageOrdered B y: Yesika Faust on 02-17-2023 Basophils/100 WBC (Bld) 0.8 % 0-1 [facility] Chloride [Moles/Vol] 109 mmol/L 98-107 [facility] Eosinophils/100 WBC (Bld) 2.8 % 0-5 [facility] Glucose [Mass/Vol] 94 mg/dL 74-106 [facility] Neutrophils (Bld) [#/Vol] 3.9 10*3/uL 2.0-7.7 [facility] Neutrophils/100 WBC (Bld) 60.0 % 47-70 [facility] Potassium [Moles/Vol] 3.7 mmol/L 3.5-5.1 [facility] Sodium [Moles/Vol] 141 mmol/L 136-145 [facility] WBC (Bld) [#/Vol] 6.5 10*3/uL 4.4-11.0 [facility] Blood erythrocytes count (nu mber/volume)Ordered By: Yesika Faust on 02-17-2023 RBC (Bld) [#/Vol] 4.33 10*6/uL 4.2-5.4 [facility] Blood hemoglobin measurement (mass/volume)Ordered By: Yesika Faust on 02-17-2023 Hemoglobin (Bld) [Mass/Vol] 11.4 g/dL 12.0-15.0 [facility] Blood lymphocytes/100 leukoc ytesOrdered By: Yesika Faust on 02-17-2023 Lymphocytes/100 WBC (Bld) 25.9 % 19-41 [facility] Blood monocytes/100 leukocyt esOrdered By: Jedriverdalemacarena Faust on 02-17-2023 Monocytes/100 WBC (Bld) 10.2 % 0-10 [facility] Blood platelet mean volumeOr dered By: Yesika Faust on 02-17-2023 Platelet mean volume (Bld) [Entitic vol] 10.6 fL 6.2-12.0 [facility] Determination of erythrocyte mean corpuscular volume (MCV)Ordered By: Yesika Faust on 02-17-2023 MCV (RBC) [Entitic vol] 86.4 fL 81-99 [facility] Hematocrit Auto (Bld) [Volum e fraction]Ordered By: Yesika Faust on 02-17-2023 Hematocrit (Bld) [Volume fraction] 37.4 % 37-47 [facility] Laboratory - Chemistry and C hemistry - challengeOrdered By: Yesika Faust on 02-17-2023 CO2 [Moles/Vol] 28.0 mmol/L 21.0-32.0 [facility] Urea nitrogen/Creatinine [Mass ratio] 16.1 mg/mg 10-20 [facility] Laboratory - Hematology and Cell countsOrdered By: Yesika Faust on 02-17-2023 Erythrocyte distribution width (RBC) [Entitic vol] 56.0 fL 35.1-43.9 [facility] Erythrocyte distribution width (RBC) [Ratio] 17.5 % 11.6-14.6 [facility] Immature granulocytes/100 WBC (Bld) 0.300 % 0.0-0.9 [facility] Comment on above: IG% - Immature Granu locytes (promyelocytes, myelocytes and metamyelocytes) > 1% indicates that a LEFT SHIFT is Present. MCH (RBC) [Entitic mass] 26.3 pg 27.0-32.0 [facility] Nucleated RBC/100 WBC (Bld) [Ratio] 0 % 0-5 [facility] MCHC Auto (RBC) [Mass/Vol]Or dered By: Yesika Fauts on 02-17-2023 MCHC (RBC) [Mass/Vol] 30.5 g/dL 32-36 [facility] No Panel InformationOrdered By: Yesika Faust on 02-17-2023 Estimated GFR (MDRD) Amer 106 mL/min >60 [facility] Comment on above: GFR Calc Estimated GFR (MDRD) Non-Af Amer 87 mL/min >60 [facility] Comment on above: Non- GFR Calc Platelets bldOrdered By: Randall Faust on 02-17-2023 Platelets (Bld) [#/Vol] 228 10*3/uL 150-450 [facility] Serum or plasma calcium madi urement (mass/volume)Ordered By: Yesika Faust on 02-17-2023 Calcium [Mass/Vol] 8.8 mg/dL 8.5-10.1 [facility] Serum or plasma creatinine m easurement (mass/volume)Ordered By: Yesika Faust on 02-17-2023 Creatinine [Mass/Vol] 0.68 mg/dL 0.55-1.02 [facility] Comment on above: The validity of the calculated GFR & GFRAA in patients over 70 years has not been determined. Clinical correlation is essential. Serum or plasma urea nitroge n measurement (mass/volume)Ordered By: Yesika Faust on 02-17-2023 Urea nitrogen [Mass/Vol] 11 mg/dL 7-18 [facility] Thin prep Papanicolaou smear with manual screeningOrdered By: Yesika Faust on 02-17-2023 Thin prep Papanicolaou smear with manual screening 4 5-15 [facility] Basophil percentageOrdered B y: Cl Tsang on 01-12-2023 Cholesterol [Mass/Vol] 112 mg/dL <200 [facility] Comment on above: <200 mg/dL Desirable 200-240 mg/dL Borderline >240 mg/dL High Risk Triglyceride [Mass/Vol] 110 mg/dL <199 [facility] Comment on above: The drugs N-Acetylcy steine and Metamizole may falsely depress this assay.Serum Triglycerides Reference Interval Normal <150 mg/dL Borderline high 150 - 199 mg/dL High 200 - 499 mg/dL Very High > or = 500 mg/dL Serum or plasma cholesterol in HDL measurement (mass/volume)Ordered By: Cl Tsang on 01-12-2023 Cholesterol in HDL [Mass/Vol] 50 mg/dL >40 [facility] Comment on above: The drugs N-Acetylcy steine and Metamizole may falsely depress this assay. Reference Range HDL <40 mg/dL Low HDL Cholesterol HDL >or= 60 mg/dL High HDL Cholesterol Serum or plasma cholesterol in VLDL measurement (mass/volume)Ordered By: Cl Tsang on 01-12-2023 Cholesterol in VLDL [Mass/Vol] 22 mg/dL 5-40 [facility] Serum or plasma low density lipoprotein (LDL) cholesterol measurement (mass/volume)Ordered By: Cl Tsang on 01-12-2023 Cholesterol in LDL [Mass/Vol] 40 mg/dL 0-130 [facility] Basophil percentageOrdered B y: Yesika Faust on 11-18-2022 Chloride [Moles/Vol] 108 mmol/L 98-107 [facility] Glucose [Mass/Vol] 114 mg/dL 74-106 [facility] Comment on above: Fasting Glucose resu lt from 100 to 125 mg/dL suggests IMPAIRED HOMEOSTASIS per A.D.A. criteria. Potassium [Moles/Vol] 4.1 mmol/L 3.5-5.1 [facility] Sodium [Moles/Vol] 142 mmol/L 136-145 [facility] WBC (Bld) [#/Vol] 5.6 10*3/uL 4.4-11.0 [facility] Blood erythrocytes count (nu mber/volume)Ordered By: Yesika Faust on 11-18-2022 RBC (Bld) [#/Vol] 3.89 10*6/uL 4.2-5.4 [facility] Blood hemoglobin measurement (mass/volume)Ordered By: Yesika Faust on 11-18-2022 Hemoglobin (Bld) [Mass/Vol] 10.5 g/dL 12.0-15.0 [facility] Blood platelet mean volumeOr dered By: Yesika Faust on 11-18-2022 Platelet mean volume (Bld) [Entitic vol] 10.7 fL 6.2-12.0 [facility] Determination of erythrocyte mean corpuscular volume (MCV)Ordered By: Yesika Faust on 11-18-2022 MCV (RBC) [Entitic vol] 88.4 fL 81-99 [facility] Hematocrit Auto (Bld) [Volum e fraction]Ordered By: Yesika Faust on 11-18-2022 Hematocrit (Bld) [Volume fraction] 34.4 % 37-47 [facility] Laboratory - Chemistry and C hemistry - challengeOrdered By: Yesika Faust on 11-18-2022 CO2 [Moles/Vol] 27.0 mmol/L 21.0-32.0 [facility] Urea nitrogen/Creatinine [Mass ratio] 18.9 mg/mg 10-20 [facility] Laboratory - Hematology and Cell countsOrdered By: Yesika Faust on 11-18-2022 Erythrocyte distribution width (RBC) [Entitic vol] 43.8 fL 35.1-43.9 [facility] Erythrocyte distribution width (RBC) [Ratio] 13.4 % 11.6-14.6 [facility] MCH (RBC) [Entitic mass] 27.0 pg 27.0-32.0 [facility] MCHC Auto (RBC) [Mass/Vol]Or dered By: Yesika Faust on 11-18-2022 MCHC (RBC) [Mass/Vol] 30.5 g/dL 32-36 [facility] No Panel InformationOrdered By: Yesika Faust on 11-18-2022 Estimated GFR (MDRD) Amer 115 mL/min >60 [facility] Comment on above: GFR Calc Estimated GFR (MDRD) Non-Af Amer 95 mL/min >60 [facility] Comment on above: Non- GFR Calc Platelets bldOrdered By: Randall montsemacaerna Faust on 11-18-2022 Platelets (Bld) [#/Vol] 247 10*3/uL 150-450 [facility] Serum or plasma calcium madi urement (mass/volume)Ordered By: Yesika Faust on 11-18-2022 Calcium [Mass/Vol] 9.1 mg/dL 8.5-10.1 [facility] Serum or plasma creatinine m easurement (mass/volume)Ordered By: Yesika Faust on 11-18-2022 Creatinine [Mass/Vol] 0.64 mg/dL 0.55-1.02 [facility] Comment on above: The validity of the calculated GFR & GFRAA in patients over 70 years has not been determined. Clinical correlation is essential. Serum or plasma urea nitroge n measurement (mass/volume)Ordered By: Yesika Faust on 11-18-2022 Urea nitrogen [Mass/Vol] 12 mg/dL 7-18 [facility] Thin prep Papanicolaou smear with manual screeningOrdered By: Yesika Faust on 11-18-2022 Thin prep Papanicolaou smear with manual screening 7 5-15 [facility] Absolute lymphocyte countOrd ered By: Yesika Faust on 08-19-2022 Lymphocytes Auto (Unsp spec) [#/Vol] 1.60 10*3/uL 0.83-4.51 [facility] Basophil percentageOrdered B y: Yesika Faust on 08-19-2022 Basophils/100 WBC (Bld) 0.4 % 0-1 [facility] Chloride [Moles/Vol] 105 mmol/L 98-107 [facility] Eosinophils/100 WBC (Bld) 0.2 % 0-5 [facility] Glucose [Mass/Vol] 96 mg/dL 74-106 [facility] Neutrophils (Bld) [#/Vol] 3.3 10*3/uL 2.0-7.7 [facility] Neutrophils/100 WBC (Bld) 59.4 % 47-70 [facility] Potassium [Moles/Vol] 4.0 mmol/L 3.5-5.1 [facility] Sodium [Moles/Vol] 141 mmol/L 136-145 [facility] WBC (Bld) [#/Vol] 5.6 10*3/uL 4.4-11.0 [facility] Blood erythrocytes count (nu mber/volume)Ordered By: Yesika Faust on 08-19-2022 RBC (Bld) [#/Vol] 4.44 10*6/uL 4.2-5.4 [facility] Blood hemoglobin measurement (mass/volume)Ordered By: Yesika Faust on 08-19-2022 Hemoglobin (Bld) [Mass/Vol] 13.0 g/dL 12.0-15.0 [facility] Blood lymphocytes/100 leukoc ytesOrdered By: Yesika Faust on 08-19-2022 Lymphocytes/100 WBC (Bld) 28.8 % 19-41 [facility] Blood monocytes/100 leukocyt esOrdered By: Yesika Faust on 08-19-2022 Monocytes/100 WBC (Bld) 11.0 % 0-10 [facility] Blood platelet mean volumeOr dered By: Yesika Faust on 08-19-2022 Platelet mean volume (Bld) [Entitic vol] 10.7 fL 6.2-12.0 [facility] Determination of erythrocyte mean corpuscular volume (MCV)Ordered By: Yesika Faust on 08-19-2022 MCV (RBC) [Entitic vol] 93.0 fL 81-99 [facility] Hematocrit Auto (Bld) [Volum e fraction]Ordered By: Yesika Faust on 08-19-2022 Hematocrit (Bld) [Volume fraction] 41.3 % 37-47 [facility] Laboratory - Chemistry and C hemistry - challengeOrdered By: Yesika Faust on 08-19-2022 CO2 [Moles/Vol] 29.0 mmol/L 21.0-32.0 [facility] Urea nitrogen/Creatinine [Mass ratio] 19.4 mg/mg 10-20 [facility] Laboratory - Hematology and Cell countsOrdered By: Yesika Faust on 08-19-2022 Erythrocyte distribution width (RBC) [Entitic vol] 44.3 fL 35.1-43.9 [facility] Erythrocyte distribution width (RBC) [Ratio] 12.9 % 11.6-14.6 [facility] Immature granulocytes/100 WBC (Bld) 0.200 % 0.0-0.9 [facility] Comment on above: IG% - Immature Granu locytes (promyelocytes, myelocytes and metamyelocytes) > 1% indicates that a LEFT SHIFT is Present. MCH (RBC) [Entitic mass] 29.3 pg 27.0-32.0 [facility] Nucleated RBC/100 WBC (Bld) [Ratio] 0 % 0-5 [facility] MCHC Auto (RBC) [Mass/Vol]Or dered By: Yesika Faust on 08-19-2022 MCHC (RBC) [Mass/Vol] 31.5 g/dL 32-36 [facility] No Panel InformationOrdered By: Yesika Faust on 08-19-2022 Estimated GFR (MDRD) Amer 99 mL/min >60 [facility] Comment on above: GFR Calc Estimated GFR (MDRD) Non-Af Amer 82 mL/min >60 [facility] Comment on above: Non- GFR Calc Platelets bldOrdered By: Randall Faust on 08-19-2022 Platelets (Bld) [#/Vol] 216 10*3/uL 150-450 [facility] Serum or plasma calcium madi urement (mass/volume)Ordered By: Yesika Faust on 08-19-2022 Calcium [Mass/Vol] 9.4 mg/dL 8.5-10.1 [facility] Serum or plasma creatinine m easurement (mass/volume)Ordered By: Yesika Faust on 08-19-2022 Creatinine [Mass/Vol] 0.72 mg/dL 0.55-1.02 [facility] Comment on above: The validity of the calculated GFR & GFRAA in patients over 70 years has not been determined. Clinical correlation is essential. Serum or plasma urea nitroge n measurement (mass/volume)Ordered By: Jenamacarena Faust on 08-19-2022 Urea nitrogen [Mass/Vol] 14 mg/dL 7-18 [facility] Thin prep Papanicolaou smear with manual screeningOrdered By: [facility] Scoutkathierafaela on 08-19-2022 Thin prep Papanicolaou smear with manual screening 7 5-15 [facility] Absolute lymphocyte counton 05-20-2022 Lymphocytes Auto (Unsp spec) [#/Vol] 1.88 10*3/uL 0.83-4.51 [facility] Work Phone: Basophil percentageon 2021 Basophils/100 WBC (Bld) 0.7 % 0-1 [facility] Work Phone: Chloride [Moles/Vol] 111 mmol/L 98-107 [facility] Work Phone: Eosinophils/100 WBC (Bld) 4.0 % 0-5 [facility] Work Phone: Glucose [Mass/Vol] 94 mg/dL 74-106 [facility] Work Phone: Neutrophils (Bld) [#/Vol] 3.3 10*3/uL 2.0-7.7 [facility] Work Phone: Neutrophils/100 WBC (Bld) 55.6 % 47-70 [facility] Work Phone: Potassium [Moles/Vol] 4.1 mmol/L 3.5-5.1 [facility] Work Phone: Sodium [Moles/Vol] 139 mmol/L 136-145 [facility] Work Phone: WBC (Bld) [#/Vol] 6.0 10*3/uL 4.4-11.0 [facility] Work Phone: Blood erythrocytes count (nu mber/volume)on 05-20-2022 RBC (Bld) [#/Vol] 4.01 10*6/uL 4.2-5.4 [facility] Work Phone: Blood hemoglobin measurement (mass/volume)on 05-20-2022 Hemoglobin (Bld) [Mass/Vol] 13.0 g/dL 12.0-15.0 [facility] Work Phone: Blood lymphocytes/100 leukoc yteson 05-20-2022 Lymphocytes/100 WBC (Bld) 31.5 % 19-41 [facility] Work Phone: Blood monocytes/100 leukocyt eson 05-20-2022 Monocytes/100 WBC (Bld) 8.0 % 0-10 [facility] Work Phone: Blood platelet mean volumeon 05-20-2022 Platelet mean volume (Bld) [Entitic vol] 10.3 fL 6.2-12.0 [facility] Work Phone: Determination of erythrocyte mean corpuscular volume (MCV)on 05-20-2022 MCV (RBC) [Entitic vol] 99.3 fL 81-99 [facility] Work Phone: Hematocrit Auto (Bld) [Volum e fraction]on 05-20-2022 Hematocrit (Bld) [Volume fraction] 39.8 % 37-47 [facility] Work Phone: Laboratory - Chemistry and C hemistry - challengeon 05-20-2022 CO2 [Moles/Vol] 17.0 mmol/L 21.0-32.0 [facility] Work Phone: Urea nitrogen/Creatinine [Mass ratio] 13.2 mg/mg 10-20 [facility] Work Phone: Laboratory - Hematology and Cell countson 05-20-2022 Erythrocyte distribution width (RBC) [Entitic vol] 52.0 fL 35.1-43.9 [facility] Work Phone: Erythrocyte distribution width (RBC) [Ratio] 14.4 % 11.6-14.6 [facility] Work Phone: Immature granulocytes/100 WBC (Bld) 0.200 % 0.0-0.9 [facility] Work Phone: Comment on above: IG% - Immature Granu locytes (promyelocytes, myelocytes and metamyelocytes) > 1% indicates that a LEFT SHIFT is Present. MCH (RBC) [Entitic mass] 32.4 pg 27.0-32.0 [facility] Work Phone: Nucleated RBC/100 WBC (Bld) [Ratio] 0 % 0-5 [facility] Work Phone: MCHC Auto (RBC) [Mass/Vol]on 05-20-2022 MCHC (RBC) [Mass/Vol] 32.7 g/dL 32-36 [facility] Work Phone: No Panel Informationon 05-20 Estimated GFR (MDRD) Amer 94 mL/min >60 [facility] Work Phone: Comment on above: GFR Calc Estimated GFR (MDRD) Non-Af Amer 77 mL/min >60 [facility] Work Phone: Comment on above: Non- GFR Calc Platelets bldon 05-20-2022 Platelets (Bld) [#/Vol] 188 10*3/uL 150-450 [facility] Work Phone: Serum or plasma calcium madi urement (mass/volume)on 05-20-2022 Calcium [Mass/Vol] 9.5 mg/dL 8.5-10.1 [facility] Work Phone: Serum or plasma creatinine m easurement (mass/volume)on 05-20-2022 Creatinine [Mass/Vol] 0.76 mg/dL 0.55-1.02 [facility] Work Phone: Comment on above: The validity of the calculated GFR & GFRAA in patients over 70 years has not been determined. Clinical correlation is essential. Serum or plasma urea nitroge n measurement (mass/volume)on 05-20-2022 Urea nitrogen [Mass/Vol] 10 mg/dL 7-18 [facility] Work Phone: Thin prep Papanicolaou smear with manual screeningon 05-20-2022 Thin prep Papanicolaou smear with manual screening 11 5-15 [facility] Work Phone: Bilirubin Test strip Ql (U)o n 03-07-2022 Bilirubin Ql (U) Negative Negative [facility] Work Phone: Ketones Test strip Ql (U)on 03-07-2022 Ketones Ql (U) Negative Negative [facility] Work Phone: Nitrite Test strip Ql (U)on 03-07-2022 Nitrite Ql (U) Positive Negative [facility] Work Phone: Protein Test strip Ql (U)on 03-07-2022 Protein Ql (U) Negative Negative [facility] Work Phone: Urine blood detectionon 02-13 RBC Ql (U) 25 /ul Negative [facility] Work Phone: Urine clarityon 03-07-2022 Clarity (U) Clear Clear [facility] Work Phone: Urine color determinationon 03-07-2022 Color (U) Yellow Yellow [facility] Work Phone: Urine glucose detectionon Glucose Ql (U) Normal mg/dl Normal [facility] Work Phone: Urine leukocyte esterase det ection by dipstickon 03-07-2022 Leukocyte esterase Test strip Ql (U) 500 /ul Negative [facility] Work Phone: Urine pHon 03-07-2022 pH (U) 6.5 [pH] 5.0 - 8.0 [facility] Work Phone: Urine specific gravity measu rementon 03-07-2022 Specific gravity (U) [Rel density] 1.010 1.002-1.03 0 [facility] Work Phone: Urobilinogen Auto test strip Ql (U)on 03-07-2022 Urobilinogen Ql (U) Normal mg/dl [facility]: Basophil percentageon 2021 Cholesterol [Mass/Vol] 117 mg/dL <200 [facility] Work Phone: Comment on above: <200 mg/dL Desirable 200-240 mg/dL Borderline >240 mg/dL High Risk Triglyceride [Mass/Vol] 118 mg/dL [facility] Work Phone: Comment on above: The drugs N-Acetylcy steine and Metamizole may falsely depress this assay.Serum Triglycerides Reference Interval Normal <150 mg/dL Borderline high 150 - 199 mg/dL High 200 - 499 mg/dL Very High > or = 500 mg/dL Serum or plasma cholesterol in HDL measurement (mass/volume)on 01-13-2022 Cholesterol in HDL [Mass/Vol] 44 mg/dL [facility] Work Phone: Comment on above: The drugs N-Acetylcy steine and Metamizole may falsely depress this assay. Reference Range HDL <40 mg/dL Low HDL Cholesterol HDL >or= 60 mg/dL High HDL Cholesterol Serum or plasma cholesterol in VLDL measurement (mass/volume)on 01-13-2022 Cholesterol in VLDL [Mass/Vol] 24 mg/dL 5-40 [facility] Work Phone: Serum or plasma low density lipoprotein (LDL) cholesterol measurement (mass/volume)on 01-13-2022 Cholesterol in LDL [Mass/Vol] 49 mg/dL 0-130 [facility] Work Phone: Absolute lymphocyte counton 11-12-2021 Lymphocytes Auto (Unsp spec) [#/Vol] 1.48 10*3/uL 0.83-4.51 [facility] Work Phone: Basophil percentageon 2021 Basophils/100 WBC (Bld) 0.5 % 0-1 [facility] Work Phone: Chloride [Moles/Vol] 108 mmol/L 98-107 [facility] Work Phone: Eosinophils/100 WBC (Bld) 1.4 % 0-5 [facility] Work Phone: Glucose [Mass/Vol] 105 mg/dL 74-106 [facility] Work Phone: Comment on above: Fasting Glucose resu lt from 100 to 125 mg/dL suggests IMPAIRED HOMEOSTASIS per A.D.A. criteria. Neutrophils (Bld) [#/Vol] 3.5 10*3/uL 2.0-7.7 [facility] Work Phone: Neutrophils/100 WBC (Bld) 61.7 % 47-70 [facility] Work Phone: Potassium [Moles/Vol] 3.8 mmol/L 3.5-5.1 [facility] Work Phone: Sodium [Moles/Vol] 139 mmol/L 136-145 [facility] Work Phone: WBC (Bld) [#/Vol] 5.7 10*3/uL 4.4-11.0 [facility] Work Phone: Blood erythrocytes count (nu mber/volume)on 11-12-2021 RBC (Bld) [#/Vol] 4.44 10*6/uL 4.2-5.4 [facility] Work Phone: Blood hemoglobin measurement (mass/volume)on 11-12-2021 Hemoglobin (Bld) [Mass/Vol] 13.7 g/dL 12.0-15.0 [facility] Work Phone: Blood lymphocytes/100 leukoc yteson 11-12-2021 Lymphocytes/100 WBC (Bld) 26.0 % 19-41 [facility] Work Phone: Blood monocytes/100 leukocyt eson 11-12-2021 Monocytes/100 WBC (Bld) 10.0 % 0-10 [facility] Work Phone: Blood platelet mean volumeon 11-12-2021 Platelet mean volume (Bld) [Entitic vol] 10.2 fL 6.2-12.0 [facility] Work Phone: Determination of erythrocyte mean corpuscular volume (MCV)on 11-12-2021 MCV (RBC) [Entitic vol] 89.4 fL 81-99 [facility] Work Phone: Hematocrit Auto (Bld) [Volum e fraction]on 11-12-2021 Hematocrit (Bld) [Volume fraction] 39.7 % 37-47 [facility] Work Phone: Laboratory - Chemistry and C hemistry - challengeon 11-12-2021 CO2 [Moles/Vol] 29.0 mmol/L 21.0-32.0 [facility] Work Phone: Urea nitrogen/Creatinine [Mass ratio] 16.9 mg/mg 10-20 [facility] Work Phone: Laboratory - Hematology and Cell countson 11-12-2021 Erythrocyte distribution width (RBC) [Entitic vol] 41.8 fL 35.1-43.9 [facility] Work Phone: Erythrocyte distribution width (RBC) [Ratio] 12.8 % 11.6-14.6 [facility] Work Phone: Immature granulocytes/100 WBC (Bld) 0.400 % 0.0-0.9 [facility] Work Phone: Comment on above: IG% - Immature Granu locytes (promyelocytes, myelocytes and metamyelocytes) > 1% indicates that a LEFT SHIFT is Present. MCH (RBC) [Entitic mass] 30.9 pg 27.0-32.0 [facility] Work Phone: Nucleated RBC/100 WBC (Bld) [Ratio] 0 % 0-5 [facility] Work Phone: MCHC Auto (RBC) [Mass/Vol]on 11-12-2021 MCHC (RBC) [Mass/Vol] 34.5 g/dL 32-36 [facility] Work Phone: No Panel Informationon 11-12 Estimated GFR (MDRD) Amer 101 mL/min >60 [facility] Work Phone: Comment on above: GFR Calc Estimated GFR (MDRD) Non-Af Amer 84 mL/min >60 [facility] Work Phone: Comment on above: Non- GFR Calc Platelets bldon 11-12-2021 Platelets (Bld) [#/Vol] 194 10*3/uL 150-450 [facility] Work Phone: Serum or plasma calcium madi urement (mass/volume)on 11-12-2021 Calcium [Mass/Vol] 9.5 mg/dL 8.5-10.1 [facility] Work Phone: Serum or plasma creatinine m easurement (mass/volume)on 11-12-2021 Creatinine [Mass/Vol] 0.71 mg/dL 0.55-1.02 [facility] Work Phone: Comment on above: The validity of the calculated GFR & GFRAA in patients over 70 years has not been determined. Clinical correlation is essential. Serum or plasma urea nitroge n measurement (mass/volume)on 11-12-2021 Urea nitrogen [Mass/Vol] 12 mg/dL 7-18 [facility] Work Phone: Thin prep Papanicolaou smear with manual screeningon 11-12-2021 Thin prep Papanicolaou smear with manual screening 2 5-15 [facility] Work Phone: XR SPINE CERVICAL 1 [...] 07/04/2019 10:22:47 AM Ordering Provider:Dc Mota Normal [facility] ([place]) .GFRon 06-09-2019 GFR >60 Normal [facility] ([place] Comment on above: Result Comment: GFR Population [...] #### C BC, DIFF, MORPH, BMP, GFR ####[place] [address] GFR Non- >60 Normal [facility] ([place] Comment on above: Result Comment: GFR Population [...] #### C BC, DIFF, MORPH, BMP, GFR ####[address] [address] .Manual Diffon 06-09-2019 Basophil %, Manual 1.0 % Normal 0.0-2.5 [facility] [place] Comment on above: Performed By: #### C BC, DIFF, MORPH, BMP, GFR ####[place] [address] Basophil, Abs Manual 0.08 10 3/mcL Normal 0.00-0.27 A [facility] ([place]) Comment on above: Performed By: #### C BC, DIFF, MORPH, BMP, GFR ####[address] [address] Cells Counted 100 Normal [facility] ([place] Comment on above: Performed By: #### C BC, DIFF, MORPH, BMP, GFR ####[address] [address] Eosinophil %, Manual 2.0 % Normal 0.0-6.0 [facility] ([place] Comment on above: Performed By: #### C BC, DIFF, MORPH, BMP, GFR ####[address] [address] Eosinophil, Abs Manual 0.16 10 3/mcL Normal 0.00-0.65 [facility] ([place] Comment on above: Performed By: #### C BC, DIFF, MORPH, BMP, GFR ####[address] [address] Lymphocyte %, Manual 9.0 % Low 20.0-40.0 [facility] ([place] Comment on above: Performed By: #### C BC, DIFF, MORPH, BMP, GFR ####[address] [address] Lymphocyte, Abs Manual 0.72 10 3/mcL Low 0.90-4.32 [facility] ([place] Comment on above: Performed By: #### C BC, DIFF, MORPH, BMP, GFR ####[address] [address] Monocyte %, Manual 6.0 % Normal 2.0-13.0 [facility] [place] Comment on above: Performed By: #### C BC, DIFF, MORPH, BMP, GFR ####[address] [address] Monocyte, Abs Manual 0.48 10 3/mcL Normal 0.09-1.40 A [facility] ([place] Comment on above: Performed By: #### C BC, DIFF, MORPH, BMP, GFR ####[address] [address] Myelocyte 1.0 % Normal [facility] ([place] Comment on above: Performed By: #### C BC, DIFF, MORPH, BMP, GFR ####[place] [address] Neutrophil %, Manual 81.0 % High 50.0-75.0 [facility] ([place] Comment on above: Performed By: #### C BC, DIFF, MORPH, BMP, GFR ####[place] [address] Neutrophil, Abs Manual 6.48 10 3/mcL Normal 2.25-8.10 [facility] ([place] Comment on above: Performed By: #### C BC, DIFF, MORPH, BMP, GFR ####[place] [address] .Morphon 06-09-2019 Platelets (Bld) [#/Vol] Normal Normal [facility] ([place] Comment on above: Performed By: #### C BC, DIFF, MORPH, BMP, GFR ####[place] [address] Polychrom Slight Normal [facility] ([place] Comment on above: Performed By: #### C BC, DIFF, MORPH, BMP, GFR ####[place] [address] BMPon 06-09-2019 Creatinine [Mass/Vol] 0.75 mg/dL Normal 0.50-1.20 [facility] ([place] Comment on above: Performed By: #### C BC, DIFF, MORPH, BMP, GFR ####[place] [address] Urea nitrogen/Creatinine [Mass ratio] 18.7 ratio Normal 10.0-22.0 [facility] ([place] Comment on above: Performed By: #### C BC, DIFF, MORPH, BMP, GFR ####[place] [address] Calcium [Mass/Vol] 8.2 mg/dL Low 8.4-10.1 [facility] [place] Comment on above: Performed By: #### C BC, DIFF, MORPH, BMP, GFR ####[address] [address] Chloride [Moles/Vol] 106 mmol/L Normal 98-110 [facility] ([place] Comment on above: Performed By: #### C BC, DIFF, MORPH, BMP, GFR ####[address] [address] CO2 [Moles/Vol] 18 mmol/L Low 22-32 [facility] ([place] Comment on above: Performed By: #### C BC, DIFF, MORPH, BMP, GFR ####[address] [address] Electrolyte Balance 16.0 mEq/L High 4.0-15.0 [facility] ([place]) Comment on above: Performed By: #### C BC, DIFF, MORPH, BMP, GFR ####[address] [address] Glucose [Mass/Vol] 109 mg/dL Normal 82-115 [facility] [place] Comment on above: Performed By: #### C BC, DIFF, MORPH, BMP, GFR ####[place] [address] Potassium [Moles/Vol] 3.8 mmol/L Normal 3.5-5.0 [facility] ([place] Comment on above: Performed By: #### C BC, DIFF, MORPH, BMP, GFR ####[address] [address] Sodium [Moles/Vol] 140 mmol/L Normal 136-145 [facility] [place] Comment on above: Performed By: #### C BC, DIFF, MORPH, BMP, GFR ####[address] [address] Urea nitrogen [Mass/Vol] 14.0 mg/dL Normal 8.0-22.0 [facility] ([place] Comment on above: Performed By: #### C BC, DIFF, MORPH, BMP, GFR ####[address] [address] CBCon 06-09-2019 Platelet mean volume (Bld) [Entitic vol] 8.6 fL Normal 6.6-10.5 [facility] ([place] Comment on above: Performed By: #### C BC, DIFF, MORPH, BMP, GFR ####[address] [address] Platelets (Bld) [#/Vol] 229 10 3/mcL Normal 150-450 [facility] ([place] Comment on above: Performed By: #### C BC, DIFF, MORPH, BMP, GFR ####[address] [address] WBC (Bld) [#/Vol] 8.00 10 3/mcL Normal 4.50-10.80 [facility] ([place] Comment on above: Performed By: #### C BC, DIFF, MORPH, BMP, GFR ####[address] [address] Erythrocyte distribution width (RBC) [Ratio] 13.8 % Normal 11.5-15.5 [facility] ([place] Comment on above: Performed By: #### C BC, DIFF, MORPH, BMP, GFR ####[place] [address] Hematocrit (Bld) [Volume fraction] 26.6 % Low 34.0-46.0 [facility] ([place] Comment on above: Performed By: #### C BC, DIFF, MORPH, BMP, GFR ####[address] [address] Hemoglobin (Bld) [Mass/Vol] 9.1 G/dL Low 12.0-16.0 [facility] ([place] Comment on above: Performed By: #### C BC, DIFF, MORPH, BMP, GFR ####[address] [address] MCH (RBC) [Entitic mass] 30.1 pg Normal 27.0-33.0 [facility] ([place] Comment on above: Performed By: #### C BC, DIFF, MORPH, BMP, GFR ####[address] [address] MCHC (RBC) [Mass/Vol] 34.3 G/dL Normal 32.0-36.0 [facility] ([place] Comment on above: Performed By: #### C BC, DIFF, MORPH, BMP, GFR ####[address] [address] MCV (RBC) [Entitic vol] 87.9 fL Normal 80.0-99.0 [facility] ([place] Comment on above: Performed By: #### C BC, DIFF, MORPH, BMP, GFR ####[address] [address] RBC (Bld) [#/Vol] 3.03 10 6/mcL Low 4.10-5.30 [facility] ([place] Comment on above: Performed By: #### C BC, DIFF, MORPH, BMP, GFR ####[address] [address] XR CHEST 2 VIEWSon 9 XR CHEST [...] By: Daryl Dominguez MD Preliminary Report By: Drayl Dominguez MD Electronically Signed By: Daryl Dominguez MD Dictated Date: 06/09/2019 7:19:53 AM Prelim Date: 06/09/2019 7:19:53 AM Sign Date: 06/09/2019 7:22:18 AM Normal [facility] ([place] .GFRon 06-08-2019 GFR >60 Normal [facility] [place] Comment on above: Result Comment: GFR Population [...] meters Performed By: #### B MP, GFR ####[address] [address] GFR Non- >60 Normal [facility] ([place] Comment on above: Result Comment: GFR Population [...] meters Performed By: #### B MP, GFR ####[address] [address] BMPon 06-08-2019 Creatinine [Mass/Vol] 0.60 mg/dL Normal 0.50-1.20 [facility] ([place] Comment on above: Performed By: #### B MP, GFR ####[address] [address] Urea nitrogen/Creatinine [Mass ratio] 21.7 ratio Normal 10.0-22.0 [facility] ([place] Comment on above: Performed By: #### B MP, GFR ####[address] [address] Calcium [Mass/Vol] 7.9 mg/dL Low 8.4-10.1 [facility] [place] Comment on above: Performed By: #### B MP, GFR ####[address] [address] Chloride [Moles/Vol] 107 mmol/L Normal 98-110 [facility] ([place] Comment on above: Performed By: #### B MP, GFR ####[address] [address] CO2 [Moles/Vol] 28 mmol/L Normal 22-32 [facility] ([place] Comment on above: Performed By: #### B MP, GFR ####[address] [address] Electrolyte Balance 8.0 mEq/L Normal 4.0-15.0 [facility] ([place] Comment on above: Performed By: #### B MP, GFR ####[address] [address] Glucose [Mass/Vol] 115 mg/dL Normal 82-115 [facility] [place] Comment on above: Performed By: #### B MP, GFR ####[address] [address] Potassium [Moles/Vol] 3.7 mmol/L Normal 3.5-5.0 [facility] ([place] Comment on above: Performed By: #### B MP, GFR ####[address] [address] Sodium [Moles/Vol] 143 mmol/L Normal 136-145 [facility] [place] Comment on above: Performed By: #### B MP, GFR ####[address] [address] Urea nitrogen [Mass/Vol] 13.0 mg/dL Normal 8.0-22.0 [facility] ([place] Comment on above: Performed By: #### B MP, GFR ####[address] [address] XR CHEST 2 VIEWSon 9 XR CHEST [...] AM Sign Date: 06/08/2019 6:29:24 AM Normal [facility] ([place]) .Auto Diffon 06-07-2019 Ammonia (P) [Mass/Vol] 0.40 10 3/mcL Normal 0.09-1.40 [facility] ([place] Comment on above: Performed By: #### C BC, ADIFF, ANEU, CMP, GFR ####[address] [address] Basophils (Bld) [#/Vol] 0.00 10 3/mcL Normal 0.00-0.27 [facility] ([place] Comment on above: Performed By: #### C BC, ADIFF, ANEU, CMP, GFR ####[address] [address] Basophils/100 WBC (Bld) 0.4 % Normal 0.0-2.5 [facility] ([place] Comment on above: Performed By: #### C BC, ADIFF, ANEU, CMP, GFR ####[address] [address] Eosinophils (Bld) [#/Vol] 0.30 10 3/mcL Normal 0.00-0.65 [facility] ([place] Comment on above: Performed By: #### C BC, ADIFF, ANEU, CMP, GFR ####[address] [address] Eosinophils/100 WBC (Bld) 6.6 % High 0.0-6.0 [facility] ([place] Comment on above: Performed By: #### C BC, ADIFF, ANEU, CMP, GFR ####[address] [address] Lymphocytes (Bld) [#/Vol] 1.00 10 3/mcL Normal 0.90-4.32 [facility] ([place] Comment on above: Performed By: #### C BC, ADIFF, ANEU, CMP, GFR ####[address] [address] Lymphocytes/100 WBC (Bld) 19.0 % Low 20.0-40.0 [facility] ([place] Comment on above: Performed By: #### C BC, ADIFF, ANEU, CMP, GFR ####[address] [address] Monocytes/100 WBC (Bld) 7.4 % Normal 2.0-13.0 [facility] ([place] Comment on above: Performed By: #### C BC, ADIFF, ANEU, CMP, GFR ####[address] [address] Neutrophils/100 WBC (Bld) 66.6 % Normal 50.0-75.0 [facility] ([place] Comment on above: Performed By: #### C BC, ADIFF, ANEU, CMP, GFR ####[address] [address] Ammonia (P) [Mass/Vol] 0.50 10 3/mcL Normal 0.09-1.40 [facility] ([place] Comment on above: Performed By: #### C BC, ADIFF, ANEU, BMP, GFR ####[address] [address] Basophils (Bld) [#/Vol] 0.00 10 3/mcL Normal 0.00-0.27 [facility] ([place] Comment on above: Performed By: #### C BC, ADIFF, ANEU, BMP, GFR ####[address] [address] Basophils/100 WBC (Bld) 0.7 % Normal 0.0-2.5 [facility] ([place] Comment on above: Performed By: #### C BC, ADIFF, ANEU, BMP, GFR ####[address] [address] Eosinophils (Bld) [#/Vol] 0.10 10 3/mcL Normal 0.00-0.65 [facility] ([place] Comment on above: Performed By: #### C BC, ADIFF, ANEU, BMP, GFR ####[address] [address] Eosinophils/100 WBC (Bld) 1.8 % Normal 0.0-6.0 [facility] ([place] Comment on above: Performed By: #### C BC, ADIFF, ANEU, BMP, GFR ####[address] [address] Lymphocytes (Bld) [#/Vol] 2.10 10 3/mcL Normal 0.90-4.32 [facility] ([place] Comment on above: Performed By: #### C BC, ADIFF, ANEU, BMP, GFR ####[address] [address] Lymphocytes/100 WBC (Bld) 32.8 % Normal 20.0-40.0 [facility] ([place] Comment on above: Performed By: #### C BC, ADIFF, ANEU, BMP, GFR ####[address] [address] Monocytes/100 WBC (Bld) 7.1 % Normal 2.0-13.0 [facility] ([place] Comment on above: Performed By: #### C BC, ADIFF, ANEU, BMP, GFR ####[address] [address] Neutrophils/100 WBC (Bld) 57.6 % Normal 50.0-75.0 [facility] ([place] Comment on above: Performed By: #### C BC, ADIFF, ANEU, BMP, GFR ####[address] [address] Ammonia (P) [Mass/Vol] 0.60 10 3/mcL Normal 0.09-1.40 [facility] ([place]) Comment on above: Performed By: #### C BC, ADIFF, ANEU #### [address] [address] #### BMP, GFR #### [address] [address] Basophils (Bld) [#/Vol] 0.00 10 3/mcL Normal 0.00-0.27 [facility] ([place] Comment on above: Performed By: #### C BC, ADIFF, ANEU #### [address] [address] #### BMP, GFR #### [address] [address] Basophils/100 WBC (Bld) 0.5 % Normal 0.0-2.5 [facility] ([place] Comment on above: Performed By: #### C BC, ADIFF, ANEU #### [address] [address] #### BMP, GFR #### [address] [address] Eosinophils (Bld) [#/Vol] 0.10 10 3/mcL Normal 0.00-0.65 [facility] ([place] Comment on above: Performed By: #### C BC, ADIFF, ANEU #### [place] [address] #### BMP, GFR #### [address] [address] Eosinophils/100 WBC (Bld) 2.2 % Normal 0.0-6.0 [facility] ([place] Comment on above: Performed By: #### C BC, ADIFF, ANEU #### [address] [address] #### BMP, GFR #### [address] [address] Lymphocytes (Bld) [#/Vol] 0.80 10 3/mcL Low 0.90-4.32 [facility] ([place] Comment on above: Performed By: #### C BC, ADIFF, ANEU #### [place] [address] #### BMP, GFR #### [address] [address] Lymphocytes/100 WBC (Bld) 12.3 % Low 20.0-40.0 [facility] ([place] Comment on above: Performed By: #### C BC, ADIFF, ANEU #### [address] [address] #### BMP, GFR #### [facility] [address] [place] [address] Monocytes/100 WBC (Bld) 9.5 % Normal 2.0-13.0 [facility] ([place] Comment on above: Performed By: #### C BC, ADIFF, ANEU #### [address] [address] #### BMP, GFR #### [facility] [address] [place] [address] Neutrophils/100 WBC (Bld) 75.5 % High 50.0-75.0 [facility] ([place] Comment on above: Performed By: #### C BC, ADIFF, ANEU #### [address] [address] #### BMP, GFR #### [facility] [address] [place] [address] .GFRon 06-07-2019 GFR >60 Normal [facility] ([place] Comment on above: Result Comment: GFR Population [...] #### C BC, ADIFF, ANEU, CMP, GFR ####[facility] [place] [address] GFR Non- >60 Normal [facility] ([place] Comment on above: Result Comment: GFR Population [...] BC, ADIFF, ANEU, CMP, GFR ####[place] [id number] [place] [address] GFR >60 Normal [facility] ([place] Comment on above: Result Comment: GFR Population [...] #### C BC, ADIFF, ANEU, BMP, GFR ####[address] [address] GFR Non- >60 Normal [facility] ([place] Comment on above: Result Comment: GFR Population [...] #### C BC, ADIFF, ANEU, BMP, GFR ####[address] [address] GFR Non- >60 Normal [facility] ([place] Comment on above: Result Comment: GFR Population [...] #### C BC, ADIFF, ANEU, BMP, GFR ####[address] [address] GFR >60 Normal [facility] ([place] Comment on above: Result Comment: GFR Population [...] #### C BC, ADIFF, ANEU, BMP, GFR ####[address] [address] .NEUABSon 06-07-2019 Neutrophils (Bld) [#/Vol] 3.40 10 3/mcL Normal 2.25-8.10 [facility] ([place] Comment on above: Performed By: #### C BC, ADIFF, ANEU, CMP, GFR ####[address] [address] Neutrophils (Bld) [#/Vol] 3.80 10 3/mcL Normal 2.25-8.10 [facility] ([place] Comment on above: Performed By: #### C BC, ADIFF, ANEU, BMP, GFR ####[address] [address] Neutrophils (Bld) [#/Vol] 5.00 10 3/mcL Normal 2.25-8.10 [facility] ([place] Comment on above: Performed By: #### C BC, ADIFF, ANEU #### [address] [address] #### BMP, GFR #### [address] [address] BMPon 06-07-2019 Creatinine [Mass/Vol] 0.66 mg/dL Normal 0.50-1.20 [facility] ([place] Comment on above: Performed By: #### C BC, ADIFF, ANEU, BMP, GFR ####[address] [address] Urea nitrogen/Creatinine [Mass ratio] 16.7 ratio Normal 10.0-22.0 [facility] ([place] Comment on above: Performed By: #### C BC, ADIFF, ANEU, BMP, GFR ####[place] [address] Calcium [Mass/Vol] 7.8 mg/dL Low 8.4-10.1 [facility] [place]: Performed By: #### C BC, ADIFF, ANEU, BMP, GFR ####[address] [address] Chloride [Moles/Vol] 106 mmol/L Normal 98-110 [facility] ([place] Comment on above: Performed By: #### C BC, ADIFF, ANEU, BMP, GFR ####[address] [address] CO2 [Moles/Vol] 26 mmol/L Normal 22-32 [facility] ([place] Comment on above: Performed By: #### C BC, ADIFF, ANEU, BMP, GFR ####[address] [address] Electrolyte Balance 9.0 mEq/L Normal 4.0-15.0 [facility] ([place] Comment on above: Performed By: #### C BC, ADIFF, ANEU, BMP, GFR ####[address] [address] Glucose [Mass/Vol] 101 mg/dL Normal 82-115 [facility] [place]: Performed By: #### C BC, ADIFF, ANEU, BMP, GFR ####[address] [address] Potassium [Moles/Vol] 3.6 mmol/L Normal 3.5-5.0 [facility] ([place] Comment on above: Performed By: #### C BC, ADIFF, ANEU, BMP, GFR ####[address] [address] Sodium [Moles/Vol] 141 mmol/L Normal 136-145 [facility] [place]: Performed By: #### C BC, ADIFF, ANEU, BMP, GFR ####[address] [address] Urea nitrogen [Mass/Vol] 11.0 mg/dL Normal 8.0-22.0 [facility] ([place] Comment on above: Performed By: #### C BC, ADIFF, ANEU, BMP, GFR ####[address] [address] Calcium [Mass/Vol] 8.4 mg/dL Normal 8.4-10.1 [facility] [place]: Performed By: #### C BC, ADIFF, ANEU, BMP, GFR ####[address] [address] Chloride [Moles/Vol] 106 mmol/L Normal 98-110 [facility] ([place] Comment on above: Performed By: #### C BC, ADIFF, ANEU, BMP, GFR ####[address] [address] CO2 [Moles/Vol] 25 mmol/L Normal 22-32 [facility] ([place] Comment on above: Performed By: #### C BC, ADIFF, ANEU, BMP, GFR ####[place] [address] Creatinine [Mass/Vol] 0.73 mg/dL Normal 0.50-1.20 [facility] ([place] Comment on above: Performed By: #### C BC, ADIFF, ANEU, BMP, GFR ####[address] [address] Electrolyte Balance 9.0 mEq/L Normal 4.0-15.0 [facility] ([place] Comment on above: Performed By: #### C BC, ADIFF, ANEU, BMP, GFR ####[place] [address] Glucose [Mass/Vol] 230 mg/dL High 82-115 [facility] [place]: Performed By: #### C BC, ADIFF, ANEU, BMP, GFR ####[address] [address] Potassium [Moles/Vol] 3.8 mmol/L Normal 3.5-5.0 [facility] ([place] Comment on above: Performed By: #### C BC, ADIFF, ANEU, BMP, GFR ####[address] [address] Sodium [Moles/Vol] 140 mmol/L Normal 136-145 [facility] [place]: Performed By: #### C BC, ADIFF, ANEU, BMP, GFR ####[address] [address] Urea nitrogen [Mass/Vol] 16.0 mg/dL Normal 8.0-22.0 [facility] ([place] Comment on above: Performed By: #### C BC, ADIFF, ANEU, BMP, GFR ####[place] [address] Urea nitrogen/Creatinine [Mass ratio] 21.9 ratio Normal 10.0-22.0 [facility] ([place] Comment on above: Performed By: #### C BC, ADIFF, ANEU, BMP, GFR ####[place] [address] CBCon 06-07-2019 Erythrocyte distribution width (RBC) [Ratio] 12.5 % Normal 11.5-15.5 [facility] ([place] Comment on above: Performed By: #### C BC, ADIFF, ANEU, CMP, GFR ####[place] [address] Hematocrit (Bld) [Volume fraction] 35.3 % Low 40.0-52.0 [facility] ([place] Comment on above: Performed By: #### C BC, ADIFF, ANEU, CMP, GFR ####[place] [address] Hemoglobin (Bld) [Mass/Vol] 12.0 G/dL Low 13.0-17.5 [facility] ([place] Comment on above: Performed By: #### C BC, ADIFF, ANEU, CMP, GFR ####[place] [address] MCH (RBC) [Entitic mass] 32.0 pg Normal 27.0-33.0 [facility] ([place] Comment on above: Performed By: #### C BC, ADIFF, ANEU, CMP, GFR ####[place] [address] MCHC (RBC) [Mass/Vol] 34.1 G/dL Normal 32.0-36.0 [facility] ([place] Comment on above: Performed By: #### C BC, ADIFF, ANEU, CMP, GFR ####[place] [address] MCV (RBC) [Entitic vol] 94.1 fL Normal 81.0-100.0 [facility] ([place] Comment on above: Performed By: #### C BC, ADIFF, ANEU, CMP, GFR ####[address] [address] Platelet mean volume (Bld) [Entitic vol] 6.9 fL Normal 6.4-10.5 [facility] ([place] Comment on above: Performed By: #### C BC, ADIFF, ANEU, CMP, GFR ####[address] [address] Platelets (Bld) [#/Vol] 109 10 3/mcL Low 150-450 [facility] ([place] Comment on above: Performed By: #### C BC, ADIFF, ANEU, CMP, GFR ####[address] [address] RBC (Bld) [#/Vol] 3.76 10 6/mcL Low 4.50-6.00 [facility] ([place] Comment on above: Performed By: #### C BC, ADIFF, ANEU, CMP, GFR ####[place] [id number] WBC (Bld) [#/Vol] 5.00 10 3/mcL Normal 4.50-10.80 [facility] ([place] Comment on above: Performed By: #### C BC, ADIFF, ANEU, CMP, GFR ####[place] [address] Erythrocyte distribution width (RBC) [Ratio] 13.6 % Normal 11.5-15.5 [facility] ([place] Comment on above: Performed By: #### C BC, ADIFF, ANEU, BMP, GFR ####[place] [address] Hematocrit (Bld) [Volume fraction] 28.1 % Low 34.0-46.0 [facility] ([place] Comment on above: Performed By: #### C BC, ADIFF, ANEU, BMP, GFR ####[address] [address] Hemoglobin (Bld) [Mass/Vol] 9.4 G/dL Low 12.0-16.0 [facility] ([place] Comment on above: Performed By: #### C BC, ADIFF, ANEU, BMP, GFR ####[address] [address] MCH (RBC) [Entitic mass] 32.4 pg Normal 27.0-33.0 [facility] ([place] Comment on above: Performed By: #### C BC, ADIFF, ANEU, BMP, GFR ####[address] [address] MCHC (RBC) [Mass/Vol] 33.5 G/dL Normal 32.0-36.0 [facility] ([place] Comment on above: Performed By: #### C BC, ADIFF, ANEU, BMP, GFR ####[place] [id number] MCV (RBC) [Entitic vol] 96.7 fL Normal 80.0-99.0 [facility] ([place] Comment on above: Performed By: #### C BC, ADIFF, ANEU, BMP, GFR ####[place] [address] Platelet mean volume (Bld) [Entitic vol] 7.5 fL Normal 6.6-10.5 [facility] ([place] Comment on above: Performed By: #### C BC, ADIFF, ANEU, BMP, GFR ####[place] [id number] Platelets (Bld) [#/Vol] 257 10 3/mcL Normal 150-450 [facility] ([place] Comment on above: Performed By: #### C BC, ADIFF, ANEU, BMP, GFR ####[address] [address] RBC (Bld) [#/Vol] 2.90 10 6/mcL Low 4.10-5.30 [facility] ([place] Comment on above: Performed By: #### C BC, ADIFF, ANEU, BMP, GFR ####[address] [address] WBC (Bld) [#/Vol] 6.50 10 3/mcL Normal 4.50-10.80 [facility] ([place] Comment on above: Performed By: #### C BC, ADIFF, ANEU, BMP, GFR ####[facility] [place] [address] Erythrocyte distribution width (RBC) [Ratio] 13.8 % Normal 11.5-15.5 [facility] ([place] Comment on above: Performed By: #### C BC, ADIFF, ANEU #### [address] [address] #### BMP, GFR #### [address] [address] Hematocrit (Bld) [Volume fraction] 27.4 % Low 34.0-46.0 [facility] ([place]) Comment on above: Performed By: #### C BC, ADIFF, ANEU #### [address] [address] #### BMP, GFR #### [address] [address] Hemoglobin (Bld) [Mass/Vol] 9.4 G/dL Low 12.0-16.0 [facility] ([place]) Comment on above: Performed By: #### C BC, ADIFF, ANEU #### [address] [address] #### BMP, GFR #### [address] [address] MCH (RBC) [Entitic mass] 30.3 pg Normal 27.0-33.0 [facility] ([place] Comment on above: Performed By: #### C BC, ADIFF, ANEU #### [address] [address] #### BMP, GFR #### [address] [address] MCHC (RBC) [Mass/Vol] 34.4 G/dL Normal 32.0-36.0 [facility] ([place]) Comment on above: Performed By: #### C BC, ADIFF, ANEU #### [address] [address] #### BMP, GFR #### [address] [address] MCV (RBC) [Entitic vol] 88.2 fL Normal 80.0-99.0 [facility] ([place] Comment on above: Performed By: #### C STEPHANIE KRISHNAMURTHY, ANEU #### [address] [address] #### BMP, GFR #### [address] [address] Platelet mean volume (Bld) [Entitic vol] 8.1 fL Normal 6.6-10.5 [facility] ([place] Comment on above: Performed By: #### C STEPHANIE KRISHNAMURTHY, ANEU #### [place] [address] #### BMP, GFR #### [address] [address] Platelets (Bld) [#/Vol] 188 10 3/mcL Normal 150-450 [facility] ([place] Comment on above: Performed By: #### C STEPHANIE KRISHNAMURTHY, ANEU #### [place] [address] #### BMP, GFR #### [address] [address] RBC (Bld) [#/Vol] 3.11 10 6/mcL Low 4.10-5.30 [facility] ([place] Comment on above: Performed By: #### C STEPHANIE KRISHNAMURTHY, ANEU #### [place] [address] #### BMP, GFR #### [address] [address] WBC (Bld) [#/Vol] 6.70 10 3/mcL Normal 4.50-10.80 [facility] ([place] Comment on above: Performed By: #### C STEPHANIE KRISHNAMURTHY, ANEU #### [address] [address] #### BMP, GFR #### [address] [address] [facility] Albumin/Globulin [Mass ratio] 0.8 {ratio} Low 0.9-1.6 [facility] ([place] Comment on above: Performed By: #### C BC, ADIFF, ANEU, CMP, GFR ####[address] [address] ALP [Catalytic activity/Vol] 47 U/L Normal 38-126 [facility] ([place] Comment on above: Performed By: #### C BC, ADIFF, ANEU, CMP, GFR ####[address] [address] Bili Total 0.5 mg/dL Normal 0.2-1.2 [facility] ([place] Comment on above: Performed By: #### C BC, ADIFF, ANEU, CMP, GFR ####[address] [address] Creatinine [Mass/Vol] 0.66 mg/dL Normal 0.60-1.40 [facility] ([place] Comment on above: Performed By: #### C BC, ADIFF, ANEU, CMP, GFR ####[address] [address] Globulin (S) [Mass/Vol] 2.7 G/dL Normal 1.5-3.8 [facility] ([place] Comment on above: Performed By: #### C BC, ADIFF, ANEU, CMP, GFR ####[address] [address] Protein [Mass/Vol] 4.8 G/dL Low 6.0-8.5 [facility] [place]: Performed By: #### C BC, ADIFF, ANEU, CMP, GFR ####[address] [address] Urea nitrogen/Creatinine [Mass ratio] 4.5 ratio Low 10.0-22.0 [facility] ([place] Comment on above: Performed By: #### C BC, ADIFF, ANEU, CMP, GFR ####[address] [address] Albumin [Mass/Vol] 2.1 G/dL Low 3.2-4.8 [facility] [place] Comment [place]: Performed By: #### C BC, ADIFF, ANEU, CMP, GFR ####[address] [address] ALT [Catalytic activity/Vol] 16 U/L Normal 12-55 [facility] ([place] Comment on above: Performed By: #### C BC, ADIFF, ANEU, CMP, GFR ####[address] [address] AST [Catalytic activity/Vol] 11 U/L Normal 8-34 [facility] ([place] Comment on above: Performed By: #### C BC, ADIFF, ANEU, CMP, GFR ####[address] [address] Calcium [Mass/Vol] 7.8 mg/dL Low 8.4-10.1 [facility] [place]: Performed By: #### C BC, ADIFF, ANEU, CMP, GFR ####[address] [address] Chloride [Moles/Vol] 113 mmol/L High 98-110 [facility] ([place] Comment on above: Performed By: #### C BC, ADIFF, ANEU, CMP, GFR ####[place] [address] CO2 [Moles/Vol] 30 mmol/L Normal 22-32 [facility] ([place] Comment on above: Performed By: #### C BC, ADIFF, ANEU, CMP, GFR ####[address] [address] Electrolyte Balance 5.0 mEq/L Normal 4.0-15.0 [facility] ([place] Comment on above: Performed By: #### C BC, ADIFF, ANEU, CMP, GFR ####[address] [address] Glucose [Mass/Vol] 124 mg/dL High 70-110 [facility] [place] Comment [place]: Performed By: #### C BC, ADIFF, ANEU, CMP, GFR ####[address] [address] Potassium [Moles/Vol] 3.7 mmol/L Normal 3.5-5.0 [facility] ([place] Comment on above: Performed By: #### C BC, ADIFF, ANEU, CMP, GFR ####[address] [address] Sodium [Moles/Vol] 148 mmol/L High 136-145 [facility] [place] Comment [place]: Performed By: #### C BC, ADIFF, ANEU, CMP, GFR ####[place] [address] Urea nitrogen [Mass/Vol] 3.0 mg/dL Low 8.0-22.0 [facility] ([place] Comment on above: Performed By: #### C BC, ADIFF, ANEU, CMP, GFR ####[place] [address] HHon 06-07-2019 Hematocrit (Bld) [Volume fraction] 27.4 % Low 34.0-46.0 [facility] ([place] Comment on above: Performed By: #### H H ####[place] [address] Hemoglobin (Bld) [Mass/Vol] 9.6 G/dL Low 12.0-16.0 [facility] ([place] Comment on above: Performed By: #### H H ####[place] [address] XR CHEST 1 VIEWon 06-07-2019 XR CHEST [...] AM Sign Date: 06/07/2019 7:43:21 AM Normal [facility] ([place]) .Auto Diffon 06-06-2019 Ammonia (P) [Mass/Vol] 0.70 10 3/mcL Normal 0.09-1.40 [facility] ([place] Comment on above: Performed By: #### C BRYAN KRISHNAMURTHYIFF, ANEU #### [address] [address] #### BMP, GFR #### [address] [address] Basophils (Bld) [#/Vol] 0.00 10 3/mcL Normal 0.00-0.27 [facility] ([place] Comment on above: Performed By: #### C STEPHANIE KRISHNAMURTHY, ANEU #### [place] [address] #### BMP, GFR #### [address] [address] Basophils/100 WBC (Bld) 0.4 % Normal 0.0-2.5 [facility] ([place] Comment on above: Performed By: #### C RAGHU ADIFF, ANEU #### [place] [address] #### BMP, GFR #### [address] [address] Eosinophils (Bld) [#/Vol] 0.10 10 3/mcL Normal 0.00-0.65 [facility] ([place] Comment on above: Performed By: #### BRYAN JOHNSONIFF, ANEU #### [place] [address] #### BMP, GFR #### [address] [address] Eosinophils/100 WBC (Bld) 0.8 % Normal 0.0-6.0 [facility] ([place] Comment on above: Performed By: #### C BC, ADIFF, ANEU #### [place] [address] #### BMP, GFR #### [address] [address] Lymphocytes (Bld) [#/Vol] 0.70 10 3/mcL Low 0.90-4.32 [facility] ([place]) Comment on above: Performed By: #### C BC, ADIFF, ANEU #### [address] [address] #### BMP, GFR #### [address] [address] Lymphocytes/100 WBC (Bld) 9.2 % Low 20.0-40.0 [facility] ([place]) Comment on above: Performed By: #### C BC, ADIFF, ANEU #### [address] [address] #### BMP, GFR #### [address] [address] Monocytes/100 WBC (Bld) 9.6 % Normal 2.0-13.0 [facility] ([place] Comment on above: Performed By: #### C BC, ADIFF, ANEU #### [place] [address] [address] #### BMP, GFR #### [address] [address] Neutrophils/100 WBC (Bld) 80.0 % High 50.0-75.0 [facility] ([place] Comment on above: Performed By: #### C BC, ADIFF, ANEU #### [address] [address] #### BMP, GFR #### [address] [address] .GFRon 06-06-2019 GFR Non- >60 Normal [facility] ([place]) Comment on above: Result Comment: GFR [...] Performed By: #### C BCSTEPHANIE, ANEU #### [address] [address] #### BMP, GFR #### [place] [address] GFR >60 Normal [facility] ([place] Comment on above: Result Comment: GFR Population [...] By: #### C STEPHANIE KRISHNAMURTHY, ANEU #### [place] [address] #### BMP, GFR #### [address] [address] .NEUABSon 06-06-2019 Neutrophils (Bld) [#/Vol] 6.20 10 3/mcL Normal 2.25-8.10 [facility] ([place] Comment on above: Performed By: #### C BCSTEPHANIE, ANEU #### [place] [address] #### BMP, GFR #### [address] [address] BMPon 06-06-2019 Calcium [Mass/Vol] 8.0 mg/dL Low 8.4-10.1 [facility] [place]: Performed By: #### C BCSTEPHANIE, ANEU #### [address] [address] #### BMP, GFR #### [address] [address] Chloride [Moles/Vol] 104 mmol/L Normal 98-110 [facility] ([place] Comment on above: Performed By: #### C BC, ADIFF, ANEU #### [address] [address] #### BMP, GFR #### [address] [address] CO2 [Moles/Vol] 26 mmol/L Normal 22-32 [facility] ([place] Comment on above: Performed By: #### C BC, ADIFF, ANEU #### [address] [address] #### BMP, GFR #### [address] [address] Creatinine [Mass/Vol] 0.66 mg/dL Normal 0.50-1.20 [facility] ([place] Comment on above: Performed By: #### C BC, ADIFF, ANEU #### [address] [address] #### BMP, GFR #### [address] [address] Electrolyte Balance 10.0 mEq/L Normal 4.0-15.0 [facility] ([place] Comment on above: Performed By: #### C BC, ADIFF, ANEU #### [address] [address] #### BMP, GFR #### [address] [address] Glucose [Mass/Vol] 104 mg/dL Normal 82-115 [facility] [place] Comment [place]: Performed By: #### C BC, ADIFF, ANEU #### [address] [address] #### BMP, GFR #### [address] [address] Potassium [Moles/Vol] 3.2 mmol/L Low 3.5-5.0 [facility] ([place] Comment on above: Performed By: #### C STEPHANIE KRISHNAMURTHY, ANEU #### [address] [address] #### BMP, GFR #### [address] [address] Sodium [Moles/Vol] 140 mmol/L Normal 136-145 [facility] [place] Comment [place]: Performed By: #### C STEPHANIE KRISHNAMURTHY, ANEU #### [address] [address] #### BMP, GFR #### [address] [address] Urea nitrogen [Mass/Vol] 10.0 mg/dL Normal 8.0-22.0 [facility] ([place] Comment on above: Performed By: #### C STEPHANIE KRISHNAMURTHY, ANEU #### [address] [address] #### BMP, GFR #### [address] [address] Urea nitrogen/Creatinine [Mass ratio] 15.2 ratio Normal 10.0-22.0 [facility] ([place] Comment on above: Performed By: #### C STEPHANIE KRISHNAMURTHY, ANEU #### [address] [address] #### BMP, GFR #### [address] [address] CBCon 06-06-2019 Erythrocyte distribution width (RBC) [Ratio] 13.6 % Normal 11.5-15.5 [facility] ([place] Comment on above: Performed By: #### C STEPHANIE KRISHNAMURTHY, ANEU #### [address] [address] #### BMP, GFR #### [address] [address] Hematocrit (Bld) [Volume fraction] 27.0 % Low 34.0-46.0 [facility] ([place] Comment on above: Performed By: #### C BC, ADIFF, ANEU #### [place] [address] #### BMP, GFR #### [address] [address] Hemoglobin (Bld) [Mass/Vol] 9.2 G/dL Low 12.0-16.0 [facility] ([place] Comment on above: Performed By: #### C BC, ADIFF, ANEU #### [place] [address] #### BMP, GFR #### [address] [address] MCH (RBC) [Entitic mass] 30.0 pg Normal 27.0-33.0 [facility] ([place] Comment on above: Performed By: #### C RAGHU, ADIFF, ANEU #### [place] [address] #### BMP, GFR #### [address] [address] MCHC (RBC) [Mass/Vol] 34.1 G/dL Normal 32.0-36.0 [facility] ([place] Comment on above: Performed By: #### C BC, ADIFF, ANEU #### [place] [address] #### BMP, GFR #### [place] [address] MCV (RBC) [Entitic vol] 88.0 fL Normal 80.0-99.0 [facility] ([place] Comment on above: Performed By: #### C BC, ADIFF, ANEU #### [place] [address] #### BMP, GFR #### [address] [address] Platelet mean volume (Bld) [Entitic vol] 8.2 fL Normal 6.6-10.5 [facility] ([place]) Comment on above: Performed By: #### C BC, ADIFF, ANEU #### [address] [address] #### BMP, GFR #### [address] [address] Platelets (Bld) [#/Vol] 155 10 3/mcL Normal 150-450 [facility] ([place]) Comment on above: Performed By: #### C BC, ADIFF, ANEU #### [place] [address] #### BMP, GFR #### [address] [address] RBC (Bld) [#/Vol] 3.07 10 6/mcL Low 4.10-5.30 [facility] ([place]) Comment on above: Performed By: #### C BC, ADIFF, ANEU #### [address] [address] #### BMP, GFR #### [address] [address] WBC (Bld) [#/Vol] 7.70 10 3/mcL Normal 4.50-10.80 [facility] ([place]) Comment on above: Performed By: #### C BC, ADIFF, ANEU #### [address] [address] #### BMP, GFR #### [address] [address] XR CHEST 1 VIEWon 06-06-2019 XR CHEST [...] AM Sign Date: 06/06/2019 6:40:06 AM Normal [facility] ([place]) .Auto Diffon 06-05-2019 Ammonia (P) [Mass/Vol] 1.20 10 3/mcL Normal 0.09-1.40 [facility] [facility] ([place]) Comment on above: Performed By: #### C BC, ADIFF, ANEU #### [place] [address] #### BMP, GFR #### [address] [address] Basophils (Bld) [#/Vol] 0.00 10 3/mcL Normal 0.00-0.27 [facility] ([place]) Comment on above: Performed By: #### C BC, ADIFF, ANEU #### [place] [address] #### BMP, GFR #### [address] [address] Basophils/100 WBC (Bld) 0.4 % Normal 0.0-2.5 [facility] ([place] Comment on above: Performed By: #### C BC, ADIFF, ANEU #### [place] [address] #### BMP, GFR #### [address] [address] Eosinophils (Bld) [#/Vol] 0.10 10 3/mcL Normal 0.00-0.65 [facility] ([place] Comment on above: Performed By: #### C BC, ADIFF, ANEU #### [place] [address] #### BMP, GFR #### [address] [address] Eosinophils/100 WBC (Bld) 0.6 % Normal 0.0-6.0 [facility] ([place] Comment on above: Performed By: #### C BC, ADIFF, ANEU #### [place] [address] #### BMP, GFR #### [address] [address] Lymphocytes (Bld) [#/Vol] 1.10 10 3/mcL Normal 0.90-4.32 [facility] ([place] Comment on above: Performed By: #### C BC, ADIFF, ANEU #### [address] [address] #### BMP, GFR #### [address] [address] Lymphocytes/100 WBC (Bld) 9.5 % Low 20.0-40.0 [facility] ([place] Comment on above: Performed By: #### C BC, ADIFF, ANEU #### [address] [address] #### BMP, GFR #### [address] [address] Monocytes/100 WBC (Bld) 9.9 % Normal 2.0-13.0 [facility] ([place] Comment on above: Performed By: #### C BC, ADIFF, ANEU #### [address] [address] #### BMP, GFR #### [address] [address] Neutrophils/100 WBC (Bld) 79.6 % High 50.0-75.0 [facility] ([place] Comment on above: Performed By: #### C BC, ADIFF, ANEU #### [address] [address] #### BMP, GFR #### [address] [address] .GFRon 06-05-2019 GFR >60 Normal [facility] ([place] Comment on above: Result Comment: GFR Population [...] By: #### C BC, ADIFF, ANEU #### [place] [address] #### BMP, GFR #### [place] [address] GFR Non- >60 Normal [facility] ([place] Comment on above: Result Comment: GFR Population [...] By: #### C BC, ADIFF, ANEU #### [address] [address] #### BMP, GFR #### [place] [address] .Morphon 06-05-2019 Platelets (Bld) [#/Vol] Slt Decreased Normal [facility] ([place] Comment on above: Performed By: #### C BC, ADIFF, ANEU #### [address] [address] #### BMP, GFR #### [address] [address] RBC morphology finding Nom (Bld) Normal Normal [facility] ([place] Comment on above: Performed By: #### C BC, ADIFF, ANEU #### [place] [address] #### BMP, GFR #### [address] [address] .NEUABSon 06-05-2019 Neutrophils (Bld) [#/Vol] 9.30 10 3/mcL High 2.25-8.10 [facility] ([place] Comment on above: Performed By: #### C BC, ADIFF, ANEU #### [place] [address] #### BMP, GFR #### [place] [address] BMPon 06-05-2019 Calcium [Mass/Vol] 8.2 mg/dL Low 8.4-10.1 [facility] [place]: Performed By: #### C BC, ADIFF, ANEU #### [place] [address] #### BMP, GFR #### [place] [address] CO2 [Moles/Vol] 23 mmol/L Normal 22-32 [facility] ([place] Comment on above: Performed By: #### C BC, ADIFF, ANEU #### [place] [address] #### BMP, GFR #### [place] [address] Creatinine [Mass/Vol] 0.65 mg/dL Normal 0.50-1.20 [facility] ([place] Comment on above: Performed By: #### C BC, ADIFF, ANEU #### [place] [address] #### BMP, GFR #### [place] [address] Electrolyte Balance 11.0 mEq/L Normal 4.0-15.0 [facility] ([place]) Comment on above: Performed By: #### C BC, ADIFF, ANEU #### [place] [address] #### BMP, GFR #### [address] [address] Glucose [Mass/Vol] 114 mg/dL Normal 82-115 [facility] [place]: Performed By: #### C BC, ADIFF, ANEU #### [address] [address] #### BMP, GFR #### [address] [address] Potassium [Moles/Vol] 4.2 mmol/L Normal 3.5-5.0 [facility] ([place] Comment on above: Performed By: #### C BC, ADIFF, ANEU #### [address] [address] #### BMP, GFR #### [address] [address] Urea nitrogen [Mass/Vol] 9.0 mg/dL Normal 8.0-22.0 [facility] ([place] Comment on above: Performed By: #### C BC, ADIFF, ANEU #### [address] [address] #### BMP, GFR #### [address] [address] Urea nitrogen/Creatinine [Mass ratio] 13.8 ratio Normal 10.0-22.0 [facility] ([place] Comment on above: Performed By: #### C BC, ADIFF, ANEU #### [address] [address] #### BMP, GFR #### [address] [address] Chloride [Moles/Vol] 107 mmol/L Normal 98-110 [facility] ([place] Comment on above: Performed By: #### C BC, ADIFF, ANEU #### [address] [address] #### BMP, GFR #### [address] [address] Sodium [Moles/Vol] 141 mmol/L Normal 136-145 [facility] [place]: Performed By: #### C BC, ADIFF, ANEU #### [address] [address] #### BMP, GFR #### [address] [address] CBCon 06-05-2019 Platelet mean volume (Bld) [Entitic vol] 9.1 fL Normal 6.6-10.5 [facility] ([place] Comment on above: Performed By: #### C BC, ADIFF, ANEU #### [address] [address] #### BMP, GFR #### [address] [address] Platelets (Bld) [#/Vol] 143 10 3/mcL Low 150-450 [facility] ([place] Comment on above: Performed By: #### C BC, ADIFF, ANEU #### [place] [address] #### BMP, GFR #### [address] [address] Erythrocyte distribution width (RBC) [Ratio] 14.0 % Normal 11.5-15.5 [facility] ([place] Comment on above: Performed By: #### C BC, ADIFF, ANEU #### [address] [address] #### BMP, GFR #### [address] [address] Hematocrit (Bld) [Volume fraction] 30.7 % Low 34.0-46.0 [facility] ([place] Comment on above: Performed By: #### C BC, ADIFF, ANEU #### [address] [address] #### BMP, GFR #### [address] [address] Hemoglobin (Bld) [Mass/Vol] 10.7 G/dL Low 12.0-16.0 [facility] ([place] Comment on above: Performed By: #### C BC, ADIFF, ANEU #### [address] [address] #### BMP, GFR #### [address] [address] MCH (RBC) [Entitic mass] 30.4 pg Normal 27.0-33.0 [facility] ([place] Comment on above: Performed By: #### C BC, ADIFF, ANEU #### [place] [address] #### BMP, GFR #### [address] [address] MCHC (RBC) [Mass/Vol] 34.8 G/dL Normal 32.0-36.0 [facility] ([place]) Comment on above: Performed By: #### C BC, ADIFF, ANEU #### [place] [address] #### BMP, GFR #### [place] [address] MCV (RBC) [Entitic vol] 87.6 fL Normal 80.0-99.0 [facility] ([place]) Comment on above: Performed By: #### C BC, ADIFF, ANEU #### [place] [address] #### BMP, GFR #### [address] [address] RBC (Bld) [#/Vol] 3.50 10 6/mcL Low 4.10-5.30 [facility] ([place]) Comment on above: Performed By: #### C BC, ADIFF, ANEU #### [place] [address] #### BMP, GFR #### [address] [address] WBC (Bld) [#/Vol] 11.60 10 3/mcL High 4.50-10.80 [facility] ([place]) Comment on above: Performed By: #### C BC, ADIFF, ANEU #### [address] [place], [place] [address] #### BMP, GFR #### [place] [id number] [address] [place] [address] XR CHEST 1 VIEWon 06-05-2019 XR CHEST [...] AM Sign Date: 06/05/2019 7:45:20 AM Normal [facility] ([place]) XR CHEST 1 VIEW ORIGINAL PORTABLE UPRIGHT [...] PM Sign Date: 06/04/2019 11:53:30 PM Normal [facility] ([place]) .Auto Diffon 06-04-2019 Ammonia (P) [Mass/Vol] 0.90 10 3/mcL Normal 0.09-1.40 [facility] ([place] Comment on above: Performed By: #### C BC, ADIFF, ANEU #### [place] [address] #### BMP, GFR #### [address] [address] Basophils (Bld) [#/Vol] 0.00 10 3/mcL Normal 0.00-0.27 [facility] ([place]) Comment on above: Performed By: #### C BC, ADIFF, ANEU #### [place] [address] #### BMP, GFR #### [address] [address] Basophils/100 WBC (Bld) 0.3 % Normal 0.0-2.5 [facility] ([place] Comment on above: Performed By: #### C BC, ADIFF, ANEU #### [place] [address] #### BMP, GFR #### [address] [address] Eosinophils (Bld) [#/Vol] 0.00 10 3/mcL Normal 0.00-0.65 [facility] ([place] Comment on above: Performed By: #### C BC, ADIFF, ANEU #### [place] [address] #### BMP, GFR #### [address] [address] Eosinophils/100 WBC (Bld) 0.1 % Normal 0.0-6.0 [facility] ([place] Comment on above: Performed By: #### C BC, ADIFF, ANEU #### [place] [address] #### BMP, GFR #### [address] [address] Lymphocytes (Bld) [#/Vol] 0.90 10 3/mcL Normal 0.90-4.32 [facility] ([place]) Comment on above: Performed By: #### C BC, ADIFF, ANEU #### [address] [address] #### BMP, GFR #### [facility] [address] [place] [address] Lymphocytes/100 WBC (Bld) 10.3 % Low 20.0-40.0 [facility] ([place]) Comment on above: Performed By: #### C BC, ADIFF, ANEU #### [address] [address] #### BMP, GFR #### [facility] [address] [place] [address] Monocytes/100 WBC (Bld) 9.5 % Normal 2.0-13.0 [facility] ([place] Comment on above: Performed By: #### C BC, ADIFF, ANEU #### [address] [address] #### BMP, GFR #### [address] [address] Neutrophils/100 WBC (Bld) 79.8 % High 50.0-75.0 [facility] ([place]) Comment on above: Performed By: #### C BC, ADIFF, ANEU #### [address] [address] #### BMP, GFR #### [address] [address] .GFRon 06-04-2019 GFR >60 Normal [facility] ([place]) Comment on above: Result Comment: GFR [...] By: #### C BC, ADIFF, ANEU #### [address] [address] #### BMP, GFR #### [address] [address] GFR Non- >60 Normal [facility] ([place] Comment on above: Result Comment: GFR Population [...] By: #### C BC, ADIFF, ANEU #### [place] [address] #### BMP, GFR #### [address] [address] .NEUABSon 06-04-2019 Neutrophils (Bld) [#/Vol] 7.20 10 3/mcL Normal 2.25-8.10 [facility] ([place] Comment on above: Performed By: #### C BC, ADIFF, ANEU #### [address] [address] #### BMP, GFR #### [address] [address] BMPon 06-04-2019 Calcium [Mass/Vol] 8.8 mg/dL Normal 8.4-10.1 [facility] [place]: Performed By: #### C BC, ADIFF, ANEU #### [place] [address] #### BMP, GFR #### [address] [address] Chloride [Moles/Vol] 109 mmol/L Normal 98-110 [facility] ([place] Comment on above: Performed By: #### C BC, ADIFF, ANEU #### [address] [address] #### BMP, GFR #### [address] [address] CO2 [Moles/Vol] 25 mmol/L Normal 22-32 [facility] ([place] Comment on above: Performed By: #### C BC, ADIFF, ANEU #### [address] [address] #### BMP, GFR #### [address] [address] Creatinine [Mass/Vol] 0.82 mg/dL Normal 0.50-1.20 [facility] ([place] Comment on above: Performed By: #### C BC, ADIFF, ANEU #### [address] [address] #### BMP, GFR #### [address] [address] Electrolyte Balance 8.0 mEq/L Normal 4.0-15.0 [facility] ([place] Comment on above: Performed By: #### C BC, ADIFF, ANEU #### [address] [address] #### BMP, GFR #### [address] [address] Glucose [Mass/Vol] 132 mg/dL High 82-115 [facility] [place]: Performed By: #### C BC, ADIFF, ANEU #### [address] [address] #### BMP, GFR #### [address] [address] Potassium [Moles/Vol] 4.3 mmol/L Normal 3.5-5.0 [facility] ([place] Comment on above: Performed By: #### C BC, ADIFF, ANEU #### [address] [address] #### BMP, GFR #### [address] [address] Sodium [Moles/Vol] 142 mmol/L Normal 136-145 [facility] [place] Comment [place] above: Performed By: #### C BC, ADIFF, ANEU #### [address] [address] #### BMP, GFR #### [address] [address] Urea nitrogen [Mass/Vol] 12.0 mg/dL Normal 8.0-22.0 [facility] ([place] Comment on above: Performed By: #### C BC, ADIFF, ANEU #### [address] [address] #### BMP, GFR #### [address] [address] Urea nitrogen/Creatinine [Mass ratio] 14.6 ratio Normal 10.0-22.0 [facility] ([place] Comment on above: Performed By: #### C BC, ADIFF, ANEU #### [address] [address] #### BMP, GFR #### [address] [address] CBCon 06-04-2019 Erythrocyte distribution width (RBC) [Ratio] 14.0 % Normal 11.5-15.5 [facility] ([place] Comment on above: Performed By: #### C BC, ADIFF, ANEU #### [address] [address] #### BMP, GFR #### [address] [address] Hematocrit (Bld) [Volume fraction] 38.5 % Normal 34.0-46.0 [facility] ([place] Comment on above: Performed By: #### C BC, ADIFF, ANEU #### [address] [address] #### BMP, GFR #### [address] [address] Hemoglobin (Bld) [Mass/Vol] 13.0 G/dL Normal 12.0-16.0 [facility] ([place] Comment on above: Performed By: #### C BC, ADIFF, ANEU #### [address] [address] #### BMP, GFR #### [address] [address] MCH (RBC) [Entitic mass] 30.1 pg Normal 27.0-33.0 [facility] ([place]) Comment on above: Performed By: #### C BC, ADIFF, ANEU #### [place] [address] #### BMP, GFR #### [address] [address] MCHC (RBC) [Mass/Vol] 33.7 G/dL Normal 32.0-36.0 [facility] ([place]) Comment on above: Performed By: #### C BC, ADIFF, ANEU #### [place] [address] #### BMP, GFR #### [address] [address] MCV (RBC) [Entitic vol] 89.5 fL Normal 80.0-99.0 [facility] ([place]) Comment on above: Performed By: #### C BC, ADIFF, ANEU #### [place] [address] #### BMP, GFR #### [address] [address] Platelet mean volume (Bld) [Entitic vol] 7.6 fL Normal 6.6-10.5 [facility] ([place]) Comment on above: Performed By: #### C BC, ADIFF, ANEU #### [place] [id number] #### BMP, GFR #### [address] [address] Platelets (Bld) [#/Vol] 197 10 3/mcL Normal 150-450 [facility] ([place] Comment on above: Performed By: #### C BC, ADIFF, ANEU #### [address] [address] #### BMP, GFR #### [address] [address] RBC (Bld) [#/Vol] 4.31 10 6/mcL Normal 4.10-5.30 [facility] ([place]) Comment on above: Performed By: #### C BC, ADIFF, ANEU #### [address] [address] #### BMP, GFR #### [address] [address] WBC (Bld) [#/Vol] 9.00 10 3/mcL Normal 4.50-10.80 [facility] ([place] Comment on above: Performed By: #### C BC, ADIFF, ANEU #### [address] [address] #### BMP, GFR #### [address] [address] [address] ANKLE W/O CONTRAST RIGHTo n 06-04-2019 [...] PM Sign Date: 06/04/2019 12:03:00 AM Normal [facility] ([place] WRIST W/O CONTRAST RIGHTo n 06-04-2019 [...] AM Sign Date: 06/04/2019 12:04:55 AM Normal [facility] ([place]) PROon 06-04-2019 INR Coag (PPP) [Relative time] 1.0 {INR} Normal [facility] ([place] Comment on above: Result Comment: [employer] (CHEST, 1992, [id number]) recommended therapeutic range for oral anticoagulant therapy is: LOW RISK: Prophylaxis of venous thrombosis INR: 2.0-3.0 Treatment of pulmonary embolism 2.0-3.0 Prevention of systemic embolism 2.0-3.0 HIGH RISK: Mechanical prosthetic valves 2.5-3.5 Performed By: #### C BC ADIFF, ANEU #### [place] [address] #### BMP, GFR #### [place] [address] PT Coag (PPP) [Time] 12.0 s Normal 9.0-14.6 [facility] ([place] Comment on above: Result Comment: Effe ctive 03/28/08, Protime results may be affected by some antibiotics (i.e. Ciprofloxacin, Azithromycin, Bactrim) which may potentiate the action of oral anticoagulants, with further increases in Protime/INR. Performed By: #### C BC ADIFF, ANEU #### [place] [address] #### BMP, GFR #### [place] [address] TABOon 06-04-2019 ABO/Rh Interp Negative [facility] ([place] Comment on above: Performed By: #### C BCBRYANIFF, ANEU #### [place] [address] #### BMP, GFR #### [place] [address] TABSon 06-04-2019 Antibody Screen Tango Negative Normal [facility] ([place] Comment on above: Performed By: #### C BC, ADIFF, ANEU #### [place] [address] #### BMP, GFR #### [place] [address] XR CHEST 1 VIEWon 06-04-2019 XR CHEST [...] AM Sign Date: 06/04/2019 5:25:45 AM Normal [facility] ([place] XR FLUORO < 1HR TECH TIMEon 06-04-2019 XR FLUORO < 1HR TECH TIME ORIGINAL Intraoperative fluoroscopy and image intensifier views of the right ankle Clinical Statement: rt ankle fx, internal fixation Comparison: Radiographs 06/03/2019 FINDINGS: Technical Details: Tech Time - < 1hr\\[id number]\\1120-2p total for both ; C-Arm # - 7; Total Dose - .85mGy; Images - 6; Boat Puller - nmk; History - rt ankle fx, [...] PM Sign Date: 06/04/2019 3:30:03 PM Normal [facility] ([place] FLUORO 1-2 HRS TECH TIMEo n 06-04-2019 XR FLUORO 1-2 HRS TECH TIME ORIGINAL Intraoperative fluoroscopy and image intensifier views of the right wrist Clinical Statement: rt wrist fx, internal fixation Comparison: 06/03/2019 FINDINGS: Technical Details: Tech Time - 1120-2p total for both exams; C-Arm # - 7; Total Dose - 1.71mGy; Images - 5; Boat Puller - nmk; History - rt wrist fx; [...] PM Sign Date: 06/04/2019 3:36:44 PM Normal [facility] ([place] HAND MINIMUM 3 VIEWS LEFT on [...] AM Sign Date: 06/04/2019 9:53:38 AM Normal [facility] ([place]) .Auto Diffon 06-03-2019 Ammonia (P) [Mass/Vol] 0.60 10 3/mcL Normal 0.15-1.00 [facility] ([place] Comment on above: Performed By: #### C STEPHANIE KRISHNAMURTHY ANEU #### [address] [address] #### BMP, GFR #### [address] [address] Basophils (Bld) [#/Vol] 0.00 10 3/mcL Normal 0.00-0.19 [facility] ([place] Comment on above: Performed By: #### C STEPHANIE KRISHNAMURTHY ANEU #### [address] [address] #### BMP, GFR #### [address] [address] Basophils/100 WBC (Bld) 0.4 % Normal 0.0-2.5 [facility] ([place] Comment on above: Performed By: #### STEPHANIE JOHNSON ANEU #### [place] [address] #### BMP, GFR #### [address] [address] Eosinophils (Bld) [#/Vol] 0.10 10 3/mcL Normal 0.00-0.40 [facility] ([place]) Comment on above: Performed By: #### C BC, ADIFF, ANEU #### [place] [address] #### BMP, GFR #### [address] [address] Eosinophils/100 WBC (Bld) 1.0 % Normal 0.0-7.0 [facility] ([place] Comment on above: Performed By: #### C BC, ADIFF, ANEU #### [place] [address] #### BMP, GFR #### [address] [address] Lymphocytes (Bld) [#/Vol] 1.20 10 3/mcL Normal 0.77-3.85 [facility] ([place]) Comment on above: Performed By: #### C BC, ADIFF, ANEU #### [place] [address] #### BMP, GFR #### [address] [address] Lymphocytes/100 WBC (Bld) 12.6 % Normal 10.0-50.0 [facility] ([place] Comment on above: Performed By: #### C BC, ADIFF, ANEU #### [address] [address] #### BMP, GFR #### [address] [address] Monocytes/100 WBC (Bld) 6.3 % Normal 1.7-13.0 [facility] ([place] Comment on above: Performed By: #### C BC, ADIFF, ANEU #### [place] [address] #### BMP, GFR #### [address] [address] Neutrophils/100 WBC (Bld) 79.7 % Normal 37.0-80.0 [facility] ([place] Comment on above: Performed By: #### C STEPHANIE KRISHNAMURTHY, ANEU #### [place] [address] [address] #### BMP, GFR #### [address] [address] .GFRon 06-03-2019 GFR 78 ml/min/1.73sqm Normal [facility] ([place]) Comment on above: Result Comment: GFR [...] By: #### C STEPHANIE KRISHNAMURTHY, ANEU #### [place] [address] [address] #### BMP, GFR #### [address] [address] GFR Non- 64 ml/min/1.73sqm Normal [facility] ([place] Comment on above: Result Comment: GFR Population [...] By: #### C BC, ADIFF, ANEU #### [address] [address] #### BMP, GFR #### [address] [address] .NEUABSon 06-03-2019 Neutrophils (Bld) [#/Vol] 7.90 10 3/mcL High 2.85-6.16 [facility] ([place] Comment on above: Performed By: #### C BC, ADIFF, ANEU #### [place] [address] #### BMP, GFR #### [address] [address]2019 Calcium [Mass/Vol] 9.2 mg/dL Normal 8.4-10.2 [facility] [place]: Performed By: #### C BC, ADIFF, ANEU #### [place] [address] #### BMP, GFR #### [address] [address] Chloride [Moles/Vol] 104 mmol/L Normal 98-107 [facility] ([place] Comment on above: Performed By: #### C BC, ADIFF, ANEU #### [place] [address] #### BMP, GFR #### [address] [address] CO2 [Moles/Vol] 30 mmol/L Normal 23-31 [facility] ([place] Comment on above: Performed By: #### C BC, ADIFF, ANEU #### [place] [address] #### BMP, GFR #### [address] [address] Creatinine [Mass/Vol] 0.85 mg/dL Normal 0.55-1.02 [facility] ([place] Comment on above: Performed By: #### C BC, ADIFF, ANEU #### [address] [address] #### BMP, GFR #### [address] [address] Electrolyte Balance 9.0 mEq/L Normal [facility] ([place] Comment on above: Performed By: #### C BC, ADIFF, ANEU #### [address] [address] #### BMP, GFR #### [address] [address] Glucose [Mass/Vol] 135 mg/dL High 83-110 [facility] [place] Comment [place]: Performed By: #### C BC, ADIFF, ANEU #### [address] [address] #### BMP, GFR #### [address] [address] Potassium [Moles/Vol] 4.1 mmol/L Normal 3.5-5.1 [facility] ([place] Comment on above: Performed By: #### C BC, ADIFF, ANEU #### [address] [address] #### BMP, GFR #### [address] [address] Sodium [Moles/Vol] 143 mmol/L Normal 136-145 [facility] [place] Comment [place]: Performed By: #### C BC, ADIFF, ANEU #### [address] [address] #### BMP, GFR #### [address] [address] Urea nitrogen [Mass/Vol] 14 mg/dL Normal 7-18 [facility] ([place] Comment on above: Performed By: #### C BC, ADIFF, ANEU #### [address] [address] #### BMP, GFR #### [address] [address] Urea nitrogen/Creatinine [Mass ratio] 16 ratio Normal 7-27 [facility] ([place] Comment on above: Performed By: #### C STEPHANIE KRISHNAMURTHY, ANEU #### [address] [address] #### BMP, GFR #### [address] [address] CBCon 06-03-2019 Erythrocyte distribution width (RBC) [Ratio] 14.3 % Normal 11.5-14.5 [facility] ([place] Comment on above: Performed By: #### C STEPHANIE KRISHNAMURTHY, ANEU #### [address] [address] #### BMP, GFR #### [address] [address] Hematocrit (Bld) [Volume fraction] 38.5 % Normal 37.0-47.0 [facility] ([place] Comment on above: Performed By: #### C STEPHANIE KRISHNAMURTHY, ANEU #### [address] [address] #### BMP, GFR #### [address] [address] Hemoglobin (Bld) [Mass/Vol] 13.0 G/dL Normal 12.0-16.0 [facility] ([place] Comment on above: Performed By: #### C STEPHANIE KRISHNAMURTHY, ANEU #### [place] [address] #### BMP, GFR #### [address] [address] MCH (RBC) [Entitic mass] 30.0 pg Normal 27.0-31.2 [facility] ([place] Comment on above: Performed By: #### C STEPHANIE KRISHNAMURTHY, ANEU #### [address] [address] #### BMP, GFR #### [address] [address] MCHC (RBC) [Mass/Vol] 33.8 G/dL Normal 33.0-37.0 [facility] ([place] Comment on above: Performed By: #### C BC, ADIFF, ANEU #### [address] [address] #### BMP, GFR #### [address] [address] MCV (RBC) [Entitic vol] 88.6 fL Normal 80.0-94.0 [facility] ([place] Comment on above: Performed By: #### C BC, ADIFF, ANEU #### [address] [address] #### BMP, GFR #### [address] [address] Platelet mean volume (Bld) [Entitic vol] 8.1 fL Normal 7.4-10.4 [facility] ([place]) Comment on above: Performed By: #### C BC, ADIFF, ANEU #### [place] [id number] #### BMP, GFR #### [address] [address] Platelets (Bld) [#/Vol] 221 10 3/mcL Normal 130-400 [facility] ([place]) Comment on above: Performed By: #### C BC, ADIFF, ANEU #### [place] [id number] #### BMP, GFR #### [address] [address] RBC (Bld) [#/Vol] 4.35 10 6/mcL Normal 4.20-5.40 [facility] ([place]) Comment on above: Performed By: #### C BC, ADIFF, ANEU #### [address] [address] #### BMP, GFR #### [address] [address] WBC (Bld) [#/Vol] 9.90 10 3/mcL Normal 4.60-10.80 [facility] ([place]) Comment on above: Performed By: #### C BC, ADIFF, ANEU #### [address] [place], [place] [address] #### BMP, GFR #### [address] [address] [address] ABD/PELVIS W/ IV CONTRAST ONLYon 06-03-2019 [...] PM Sign Date: 06/03/2019 4:57:41 PM Normal [facility] ([place] HEAD OR BRAIN W/O CONTRAS Ton [...] PM Sign Date: 06/03/2019 4:10:32 PM Normal [facility] ([place] SPINE CERVICAL W/O CONTRA STon 06-03-2019 [...] PM Sign Date: 06/03/2019 4:35:12 PM Normal [facility] ([place] THORAX W/ CONTRASTon - CT THORAX W/ CONTRAST ORIGINAL CT THORAX [...] PM Sign Date: 06/03/2019 4:53:52 PM Normal [facility] [place]) [place]R ANKLE AND FOOT 6 VIEWS [facility] 06-03-2019 XR ANKLE AND FOOT 6 [...] PM Sign Date: 06/03/2019 3:45:45 PM Normal [facility] [place] ANKLE MINIMUM 3 VIEWS [facility] 06-03-2019 XR ANKLE MINIMUM 3 VIEWS RIGHT [...] PM Sign Date: 06/03/2019 7:11:45 PM Normal [facility] [place]) [place]R CHEST 1 VIEWon 06-03-2019 XR CHEST [...] PM Sign Date: 06/03/2019 6:20:15 PM Normal [facility] [place] XR CHEST 1 VIEW ORIGINAL XR CHEST [...] PM Sign Date: 06/03/2019 3:47:37 PM Normal [facility] ([place]) XR FOREARM 2 VIEWS RIGHTon 0 06-03-2019 [...] PM Sign Date: 06/03/2019 7:13:59 PM Normal [facility] [place] KNEE THREE VIEWS RIGHTon 06-03-2019 XR [...] PM Sign Date: 06/03/2019 7:12:24 PM Normal [facility] [place] PELVIS 1 OR 2 VIEWSon XR [...] PM Sign Date: 06/03/2019 3:58:51 PM Normal [facility] [place] WRIST TWO VIEWS RIGHTon 0 06-03-2019 [...] Distal radius and ulnar fractures. Interpreted By: Alyosn Becker MD Preliminary Report By: Alyson Becker MD Electronically Signed By: Alyson Becker MD Dictated Date: 06/03/2019 3:54:03 PM Prelim Date: 06/03/2019 3:54:03 PM Sign Date: 06/03/2019 3:56:05 PM Normal [facility] ([place]) C-REACTIVE PROTEIN (90170)Or dered By: Care Attendant on 10-15-2017 CRP mass conc 1.0 mg/L Normal 0.0-4.9 Comprehensi ve Internal Medicine Work Phone: Comment on above: PATIENT NOT FASTINGP ERFORMED BY: [facility]6370 [facility] [id number] CBC (AUTO) ([id number])Ordered By : Care Attendant on 10-15-2017 Erythrocyte distribution width Ratio (RBC) 13.8 % Normal 12.3-15.4 [facility] Work Phone: Comment on above: PATIENT NOT FASTINGP ERFORMED BY: ORTIZ [facility] Jlzuli2143 [address] RoadDublin [place] [id number] Hematocrit Volume Fraction (Bld) 40.2 % Normal 34.0-46.6 [facility] Work Phone: Comment on above: PATIENT NOT FASTINGP ERFORMED BY: ORTIZ [facility] Syfouc9951 [address] RoadDublin [place] [id number] Hemoglobin mass conc (Bld) 13.4 g/dL Normal 11.1-15.9 [facility] Work Phone: Comment on above: PATIENT NOT FASTINGP ERFORMED BY: ORTIZ [facility] Ycrpyc4716 [address] RoadDublin [place] [id number] MCH Entitic mass (RBC) 29.8 pg Normal 26.6-33.0 [facility] Internal [facility] Work Phone: Comment on above: PATIENT NOT FASTINGP ERFORMED BY: ORTIZ [facility] Nrtrkw8782 [address] RoadDublin [place] [id number] MCHC mass conc (RBC) 33.3 g/dL Normal 31.5-35.7 [facility] Internal Medicine Work Phone: Comment on above: PATIENT NOT FASTINGP ERFORMED BY: CB [facility] Mwtycr8678 [address] RoadDublin [place] [id number] MCV Entitic volume (RBC) 90 fL Normal 79-97 [facility] Work Phone: Comment on above: PATIENT NOT FASTINGP ERFORMED BY: ORTIZ [facility] Ytikfs3828 [address] RoadDublin [place] [id number] Platelets #/vol (Bld) 211 {x10E3/uL} Normal 150-379 [facility] Work Phone: Comment on above: PATIENT NOT FASTINGP ERFORMED BY: ORTIZ [facility] Rvgmdl1570 [address] RoadDublin [place] [id number] RBC #/vol (Bld) 4.49 {x10E6/uL} Normal 3.77-5.28 Comp [facility] Work Phone: Comment on above: PATIENT NOT FASTINGP ERFORMED BY: ORTIZ Crowelin6370 [facility] [id number] WBC #/vol (Bld) 4.9 {x10E3/uL} Normal 3.4-10.8 Compr ensive Internal Medicine Work Phone: Comment on above: PATIENT NOT FASTINGP ERFORMED BY: ORTIZ Hou Yelzku6132 [facility] [id number] METABOLIC PANEL, COMPREHENSI VE ([id number])Ordered By: Care Attendant on 10-15-2017 Albumin mass conc 3.9 g/dL Normal 3.5-4.8 Compreh [facility] Internal Medicine Work Phone: Comment on above: PATIENT NOT FASTINGP ERFORMED BY: ORTIZ Hou Kfbndf2823 [facility] [id number] Albumin/Globulin mass ratio 1.6 {ratio} Normal 1.2-2.2 [facility] Work Phone: Comment on above: PATIENT NOT FASTINGP ERFORMED BY: ORTIZ Crowelin6370 [facility] [id number] ALP enzyme act/vol 78 [iU]/L Normal 39-117 [facility] Internal Medicine Work Phone: Comment on above: PATIENT NOT FASTINGP ERFORMED BY: ORTIZ Hou Edptrx6286 [facility] [id number] ALT enzyme act/vol 18 [iU]/L Normal 0-32 Compre [facility] Internal Medicine Work Phone: Comment on above: PATIENT NOT FASTINGP ERFORMED BY: ORTIZ Hou Zidphi0444 [facility] [id number] AST enzyme act/vol 25 [iU]/L Normal 0-40 [facility] Internal Medicine Work Phone: Comment on above: PATIENT NOT FASTINGP ERFORMED BY: ORTIZ [facility] Bzwana0064 [address] RoadDublin [place] [id number] Bilirubin mass conc 0.4 mg/dL Normal 0.0-1.2 Compr ehensive Internal Medicine Work Phone: Comment on above: PATIENT NOT FASTINGP ERFORMED BY: ORTIZ [facility] Dkmeks2069 [address] RoadDublin [place] [id number] Calcium mass conc 9.5 mg/dL Normal 8.7-10.3 Compreh ensive Internal Medicine Work Phone: Comment on above: PATIENT NOT FASTINGP ERFORMED BY: ORTIZ [facility] Bwezah9959 [address] RoadDublin [place] [id number] Chloride molar conc 102 mmol/L Normal 96-106 Compr ehensive Internal Medicine Work Phone: Comment on above: PATIENT NOT FASTINGP ERFORMED BY: ORTIZ [facility] Bdfjwy5563 [address] RoadDublin [place] [id number] CO2 molar conc 27 mmol/L Normal 18-29 Comprehens trupti Internal Medicine Work Phone: Comment on above: PATIENT NOT FASTINGP ERFORMED BY: ORTIZ [facility] Qiqofr8651 [address] RoadDublin [place] [id number] Creatinine mass conc 0.88 mg/dL Normal 0.57-1.00 Comp [facility]erensive Internal Medicine Work Phone: Comment on above: PATIENT NOT FASTINGP ERFORMED BY: ORTIZ [facility] Clghiu8598 [address] RoadDublin [place] [id number] GFR/1.73 sq M predicted among blacks CKD-EPI vol rate/area (S/P/Bld) 73 mL/min/1.73 Normal [facility] Work Phone: Comment on above: PATIENT NOT FASTINGP ERFORMED BY: CB [facility] Qiiere4592 [address]Dublin [place] [id number] GFR/1.73 sq M predicted among non-blacks CKD-EPI vol rate/area (S/P/Bld) 63 mL/min/1.73 Normal Comprehensiv e Internal Medicine Work Phone: Comment on above: PATIENT NOT FASTINGP ERFORMED BY: ORTIZ [facility] Kbrdeo7337 [address] RoadDublin [place] [id number] Globulin mass conc (S) 2.4 g/dL Normal 1.5-4.5 Co [facility] hospitalensive Internal [facility] Work Phone: Comment on above: PATIENT NOT FASTINGP ERFORMED BY: ORTIZ [facility] Rawmhl5907 [address] RoadDublin [place] [id number] Glucose mass conc 87 mg/dL Normal 65-99 Compreh ensive Internal Medicine Work Phone: Comment on above: PATIENT NOT FASTINGP ERFORMED BY: ORTIZ [facility] Gzzmxx7064 [address] RoadDublin [place] [id number] Potassium molar conc 4.8 mmol/L Normal 3.5-5.2 Comp [facility]eren[facility] Internal [facility] Work Phone: Comment on above: PATIENT NOT FASTINGP ERFORMED BY: ORTIZ [facility] Uhcwcn9684 [address] RoadDublin [place] [id number] Protein mass conc 6.3 g/dL Normal 6.0-8.5 Compreh ensive Internal Medicine Work Phone: Comment on above: PATIENT NOT FASTINGP ERFORMED BY: ORTIZ [facility] Cmwoam5777 [address] RoadDublin [place] [id number] Sodium molar conc 143 mmol/L Normal 134-144 Compreh ensive Internal Medicine Work Phone: Comment on above: PATIENT NOT FASTINGP ERFORMED BY: ORTIZ [facility] Coslry9[address] RoadDublin [place] [id number] Urea nitrogen mass conc 10 mg/dL Normal 8-27 [facility] Work Phone: Comment on above: PATIENT NOT FASTINGP ERFORMED BY: ORTIZ [facility] Rjeubr2684 [address]gi[address] RoadDublin [place] [id number] Urea nitrogen/Creatinine mass ratio 11 mg/mg Abnormal 12-28 [facility] Work Phone: Comment on above: PATIENT NOT FASTINGP ERFORMED BY: ORTIZ [facility] Qhrbak8901 [address] RoadDublin [place] [id number] SED RATE ERYTHROCYTE ([id number]) Ordered By: Care Attendant on 10-15-2017 ESR Velocity (Bld) 2 mm/h Normal 0-40 [facility] Internal Medicine Work Phone: Comment on above: PATIENT NOT FASTINGP ERFORMED BY: ORTIZ [facility] Oabple3461 [address] RoadDublin [place] [id number] CBC W/AUTO DIFF WBC ([id number])O rdered By: Care Attendant on 09-01-2017 Basophils #/vol (Bld) 0.0 {x10E3/uL} Normal 0.0-0.2 [facility] Work Phone: Comment on above: PATIENT WAS FASTINGP ERFORMED BY: ORTIZ [facility] Rvbmhb3138 [address] RoadDublin [place] [id number] Basophils/100 WBC (Bld) 0 % Normal [facility] Work Phone: Comment on above: PATIENT WAS FASTINGP ERFORMED BY: ORTIZ [facility] Gnkfjo8794 [address] RoadDublin [place] [id number] Eosinophils #/vol (Bld) 0.1 {x10E3/uL} Normal 0.0-0.4 [facility] Work Phone: Comment on above: PATIENT WAS FASTINGP ERFORMED BY: ORTIZ [facility] Gbpkpp2565 [address] RoadDublin [place] [id number] Eosinophils/100 WBC (Bld) 1 % Normal [facility] Work Phone: Comment on above: PATIENT WAS FASTINGP ERFORMED BY: ORTIZ [facility] Tqmisu5410 [address] RoadDublin [place] [id number] Erythrocyte distribution width Ratio (RBC) 13.8 % Normal 12.3-15.4 [facility] Work Phone: Comment on above: PATIENT WAS FASTINGP ERFORMED BY: ORTIZ [facility] Rwbiee5870 [address] RoadDublin [place] [id number] Hematocrit Volume Fraction (Bld) 40.2 % Normal 34.0-46.6 [facility] Work Phone: Comment on above: PATIENT WAS FASTINGP ERFORMED BY: ORTIZ [facility] Mmpzim3320 [address] RoadDublin [place] [id number] Hemoglobin mass conc (Bld) 13.2 g/dL Normal 11.1-15.9 [facility] Work Phone: Comment on above: PATIENT WAS FASTINGP ERFORMED BY: ORTIZ [facility] [facility]in [place] [id number] Immature granulocytes #/vol (Bld) 0.0 {x10E3/uL} Normal 0.0-0.1 [facility] Work Phone: Comment on above: PATIENT WAS FASTINGP ERFORMED BY: [facility] [facility]in [place] [id number] Immature granulocytes/100 WBC (Bld) 0 % Normal [facility] Work Phone: Comment on above: PATIENT WAS FASTINGP ERFORMED BY: ORTIZ [facility] Iwqlfj[address] [facility] [id number] Lymphocytes #/vol (Bld) 1.3 {x10E3/uL} Normal 0.7-3.1 [facility] Work Phone: Comment on above: PATIENT WAS FASTINGP ERFORMED BY: [facility] Sqszgt9[address] [facility] [id number] Lymphocytes/100 WBC (Bld) 29 % Normal [facility] Work Phone: Comment on above: PATIENT WAS FASTINGP ERFORMED BY: [facility] Hlhpqe7188 [facility] [id number] MCH Entitic mass (RBC) 29.5 pg Normal 26.6-33.0 [facility] Internal [facility] Work Phone: Comment on above: PATIENT WAS FASTINGP ERFORMED BY: [facility] Lfqspw[address] [facility] [id number] MCHC mass conc (RBC) 32.8 g/dL Normal 31.5-35.7 [facility] Internal Medicine Work Phone: Comment on above: PATIENT WAS FASTINGP ERFORMED BY: [facility] [facility] [id number] MCV Entitic volume (RBC) 90 fL Normal 79-97 [facility] Work Phone: Comment on above: PATIENT WAS FASTINGP ERFORMED BY: ORTIZ [facility] Nvkpzh89[address] [facility] [id number] Monocytes #/vol (Bld) 0.4 {x10E3/uL} Normal 0.1-0.9 [facility] Work Phone: Comment on above: PATIENT WAS FASTINGP ERFORMED BY: ORTIZ [facility] Blymve96[address] [facility] [id number] Monocytes/100 WBC (Bld) 9 % Normal [facility] Work Phone: Comment on above: PATIENT WAS FASTINGP ERFORMED BY: ORTIZ [facility] Wnmfke32[address] [facility] [id number] Neutrophils #/vol (Bld) 2.7 {x10E3/uL} Normal 1.4-7.0 [facility] Work Phone: Comment on above: PATIENT WAS FASTINGP ERFORMED BY: ORTIZ [facility] Zrzlwb2528 [facility] [id number] Neutrophils/100 WBC (Bld) 61 % Normal [facility] Work Phone: Comment on above: PATIENT WAS FASTINGP ERFORMED BY: ORTIZ [facility] Szkdku4151 [facility] [id number] Platelets #/vol (Bld) 198 {x10E3/uL} Normal 150-379 [facility] Work Phone: Comment on above: PATIENT WAS FASTINGP ERFORMED BY: [facility] Adjuve8977 [facility] [id number] RBC #/vol (Bld) 4.47 {x10E6/uL} Normal 3.77-5.28 [facility] Internal Medicine Work Phone: Comment on above: PATIENT WAS FASTINGP ERFORMED BY: [facility]6370 [facility] [id number] WBC #/vol (Bld) 4.5 {x10E3/uL} Normal 3.4-10.8 [facility] Internal Medicine Work Phone: Comment on above: PATIENT WAS FASTINGP ERFORMED BY: ORTIZ [facility] Pglklq5514 [address] RoadDublin [place] [id number] LIPID PANEL ([id number])Ordered B y: Care Attendant on 09-01-2017 Cholesterol in HDL mass conc 59 mg/dL Normal [facility] Work Phone: Comment on above: PATIENT WAS FASTINGP ERFORMED BY: ORTIZ [facility] Qsrdkq2234 [address] RoadDublin [place] [id number] Cholesterol in LDL mass conc 72 mg/dL Normal 0-99 [facility] Work Phone: Comment on above: PATIENT WAS FASTINGP ERFORMED BY: ORTIZ [facility] Ebzsow8740 [address] RoadDublin [place] [id number] Cholesterol in LDL/Cholesterol in HDL mass ratio 1.2 {ratio_units} Normal 0.0-3.2 [facility] Work Phone: Comment on above: LDL/HDL Ratio Men Wo men 1/2 Avg.Risk 1.0 1.5 Avg.Risk 3.6 3.2 2X Avg.Risk 6.2 5.0 3X Avg.Risk 8.0 6.1 PATIENT WAS FASTINGP ERFORMED BY: ORTIZ [facility] Gvubiq2421 [address] RoadDublin [place] [id number] Cholesterol in VLDL mass conc 18 mg/dL Normal 5-40 [facility] Work Phone: Comment on above: PATIENT WAS FASTINGP ERFORMED BY: ORTIZ [facility] Chqoiw6360 [address] RoadDublin [place] [id number] Cholesterol mass conc 149 mg/dL Normal 100-199 Com prehensive Internal Medicine Work Phone: Comment on above: PATIENT WAS FASTINGP ERFORMED BY: CB [facility] Rpmdip4903 [address] RoadDublin [place] [id number] Triglyceride mass conc 92 mg/dL Normal 0-149 Co [facility] hospitalehensive Internal Medicine Work Phone: Comment on above: PATIENT WAS FASTINGP ERFORMED BY: ORTIZ [facility] Pmjwlz9199 [address] RoadDublin [place] [id number] METABOLIC PANEL, COMPREHENSI VE ([id number])Ordered By: Care Attendant on 09-01-2017 Albumin mass conc 4.3 g/dL Normal 3.5-4.8 [facility] ensive Internal Medicine Work Phone: Comment on above: PATIENT WAS FASTINGP ERFORMED BY: ORTIZ [facility] Ubjaxc5390 [address] RoadDublin [place] [id number] Albumin/Globulin mass ratio 2.0 {ratio} Normal 1.2-2.2 [facility] Work Phone: Comment on above: PATIENT WAS FASTINGP ERFORMED BY: CB [facility] Xcqzjn7754 [address] RoadDublin [place] [id number] ALP enzyme act/vol 71 [iU]/L Normal 39-117 Compre [facility] Internal Medicine Work Phone: Comment on above: PATIENT WAS FASTINGP ERFORMED BY: [facility] Kydjpn0300 [address] RoadDublin [place] [id number] ALT enzyme act/vol 11 [iU]/L Normal 0-32 [facility] Internal Medicine Work Phone: Comment on above: PATIENT WAS FASTINGP ERFORMED BY: [facility] Zfwuhk8119 [address] Roadblin [place] [id number] AST enzyme act/vol 16 [iU]/L Normal 0-40 [facility] Internal Medicine Work Phone: Comment on above: PATIENT WAS FASTINGP ERFORMED BY: [facility] Piyzhq8424 [address] RoadFormerly [facility]ard[facility] Un[facility] Carein [place] [id number] Bilirubin mass conc 0.4 mg/dL Normal 0.0-1.2 [facility] Internal Medicine Work Phone: Comment on above: PATIENT WAS FASTINGP ERFORMED BY: [facility] Dwuzus3120 [address] Roadblin [place] [id number] Calcium mass conc 9.5 mg/dL Normal 8.7-10.3 [facility] Work Phone: Comment on above: PATIENT WAS FASTINGP ERFORMED BY: [facility] Tpzdjd0870 [address] Roadblin [place] [id number] Chloride molar conc 102 mmol/L Normal 96-106 Compr ensive Internal Medicine Work Phone: Comment on above: PATIENT WAS FASTINGP ERFORMED BY: CB [facility] Aumxpa6414 [address] RoadDublin [place] [id number] CO2 molar conc 27 mmol/L Normal 18-29 Comprehens trupti Internal Medicine Work Phone: Comment on above: PATIENT WAS FASTINGP ERFORMED BY: CB [facility] Gbayed2592 [address] RoadDublin [place] [id number] Creatinine mass conc 0.84 mg/dL Normal 0.57-1.00 Comp rehensive Internal Medicine Work Phone: Comment on above: PATIENT WAS FASTINGP ERFORMED BY: CB [facility] Jgadrk1093 [address] RoadDublin [place] [id number] GFR/1.73 sq M predicted among blacks CKD-EPI vol rate/area (S/P/Bld) 77 mL/min/1.73 Normal [facility] Work Phone: Comment on above: PATIENT WAS FASTINGP ERFORMED BY: CB [facility] Exdtin4710 [address] Roadblin [place] [id number] GFR/1.73 sq M predicted among non-blacks CKD-EPI vol rate/area (S/P/Bld) 67 mL/min/1.73 Normal Comprehensiv e Internal Medicine Work Phone: Comment on above: PATIENT WAS FASTINGP ERFORMED BY: ORTIZ [facility] Jijvls2005 [address] RoadD[address] [place] [id number] Globulin mass conc (S) 2.2 g/dL Normal 1.5-4.5 Co mprehensive Internal Medicine Work Phone: Comment on above: PATIENT WAS FASTINGP ERFORMED BY: CB [facility] Wreaoq2923 [address] RoadDublin [place] [id number] Glucose mass conc 88 mg/dL Normal 65-99 Compreh ensive Internal Medicine Work Phone: Comment on above: PATIENT WAS FASTINGP ERFORMED BY: CB [facility] Ogjxoi4036 [address] RoadDublin [place] [id number] Potassium molar conc 4.3 mmol/L Normal 3.5-5.2 Comp rehensive Internal Medicine Work Phone: Comment on above: PATIENT WAS FASTINGP ERFORMED BY: ORTIZ [facility] Focqbj0492 [address] RoadDublin [place] [id number] Protein mass conc 6.5 g/dL Normal 6.0-8.5 Compreh ensive Internal Medicine Work Phone: Comment on above: PATIENT WAS FASTINGP ERFORMED BY: ORTIZ [facility] Nqfwdk9393 [address] RoadDublin [place] [id number] Sodium molar conc 143 mmol/L Normal 134-144 Compreh ensive Internal Medicine Work Phone: Comment on above: PATIENT WAS FASTINGP ERFORMED BY: ORTIZ [facility] Xjswai2879 [address] RoadDublin [place] [id number] Urea nitrogen mass conc 13 mg/dL Normal 8-27 [facility] Work Phone: Comment on above: PATIENT WAS FASTINGP ERFORMED BY: ORTIZ [facility] Ncohmp0117 [address] RoadD[address] [place] [id number] Urea nitrogen/Creatinine mass ratio 15 mg/mg Normal 12- [facility] Work Phone: Comment on above: PATIENT WAS FASTINGP ERFORMED BY: ORTIZ [facility] Uqutvp6330 [address] RoadDublin [place] [id number] TSH ([id number])Ordered By: 58.com m Rn Diabetes Educator on 09-01-2017 Thyrotropin Qn 2.410 {uIU/mL} Normal 0.450-4.50 0 [facility] Work Phone: Comment on above: PATIENT WAS FASTINGP ERFORMED BY: CB [facility] Yhwdrm5511 [address] RoadDublin [place] [id number] VITAMIN B-12 (CYANOCOBALAMIN ) ([id number])Ordered By: Care Attendant on 09-01-2017 Cobalamin (Vitamin B12) mass conc 311 pg/mL Normal 232-1245 [facility] Work Phone: Comment on above: Please note refere nce interval change PATIENT WAS FASTINGP ERFORMED BY: ORTIZ [facility] Tmmkbf7077 [address] RoadDublin [place] [id number] Vitamin D Hydroxy (65628)Ord ered By: Care Attendant on 09-01-2017 25-Hydroxyvitamin D2+25-Hydroxyvitamin D3 mass conc 33.4 ng/mL Normal 30.0-100.0 [facility] Work Phone: Comment on above: Vitamin D deficiency has been defined by the [place] of[place]icine and an Endocrine Society practice guideline as alevel of serum 25-OH vitamin D less than 20 ng/mL (1,2).The Endocrine Society went on to further define vitamin Dinsufficiency as a level between 21 and 29 ng/mL (2).1. IOM ([place] of Medicine). 2010. Dietary reference intakes for calcium and D. [place]: [employer].2. Allie MF, Emile PONCE, Natalie POOLE, et al. Evaluation, treatment, and prevention of vitamin D deficiency: an Endocrine Society clinical practice guideline. JCEM. 2010; 96(7):1911-30. PATIENT WAS FASTINGP ERFORMED BY: [facility]6370 [facility] [id number] Office Visiton 06-05-2017 Dietary management education, guidance, and counseling (procedure) yes Invalid Interpretation Code [facility] Work Phone: Documentation of current medications (procedure) Done Invalid Interpretation Code [facility] Work Phone: Fall risk assessment No Invalid Interpretation Code [facility] Work Phone: Tobacco use [facility]PH[facility] Never smoker Invalid Interpretation Code [facility] Work Phone: CALCIFIDIOL (51303) VIT D 25 Ordered By: Care Attendant on 12-16-2016 25-Hydroxyvitamin D2+25-Hydroxyvitamin D3 mass conc 37.5 ng/mL Normal 30.0-100.0 [facility] Work Phone: Comment on above: Vitamin D deficiency has been defined by the [place] of[place]icine and an Endocrine Society practice guideline as alevel of serum 25-OH vitamin D less than 20 ng/mL (1,2).The Endocrine Society went on to further define vitamin Dinsufficiency as a level between 21 and 29 ng/mL (2).1. IOM ([place] of Medicine). 2010. Dietary reference intakes for calcium and D. [place]: The National Academies Press.2. Allie MF, Emile [place], Natalie POOLE, et al. Evaluation, treatment, and prevention of vitamin D deficiency: an Endocrine Society clinical practice guideline. JCEM. 2010; 96(7):1911-30. PATIENT WAS FASTINGP ERFORMED BY: ORTIZ [facility] Qznjrq0037 [address] RoadDublin [place] [id number] HEPATIC FUNCTION PANEL (8007 [id number])Ordered By: Care Attendant on 12-16-2016 Albumin mass conc 4.3 g/dL Normal 3.5-4.8 [facility] Internal Medicine Work Phone: Comment on above: PATIENT WAS FASTINGP ERFORMED BY: CB [facility] Odrtys0128 [address] RoadDublin [place] [id number] ALP enzyme act/vol 72 [iU]/L Normal 39-117 [facility] Internal Medicine Work Phone: Comment on above: PATIENT WAS FASTINGP ERFORMED BY: [facility] Qbvnzy5559 [address] RoadDublin [place] [id number] ALT enzyme act/vol 15 [iU]/L Normal 0-32 [facility] Internal Medicine Work Phone: Comment on above: PATIENT WAS FASTINGP ERFORMED BY: [facility] Mqypaz8134 [address] RoadD[address] [place] [id number] AST enzyme act/vol 18 [iU]/L Normal 0-40 [facility] Internal Medicine Work Phone: Comment on above: PATIENT WAS FASTINGP ERFORMED BY: CB [facility] Dnaocg7526 Rodriguez RoadDublin [place] [id number] Bilirubin mass conc 0.5 mg/dL Normal 0.0-1.2 [facility] Internal Medicine Work Phone: Comment on above: PATIENT WAS FASTINGP ERFORMED BY: CB [facility] Tgcnse6921 Rodriguez RoadDublin [place] [id number] Bilirubin.direct mass conc 0.16 mg/dL Normal 0.00-0.40 [facility] Internal Medicine Work Phone: Comment on above: PATIENT WAS FASTINGP ERFORMED BY: CB [facility] Ekscfd7274 [facility] [id number] Protein mass conc 6.7 g/dL Normal 6.0-8.5 Compreh ensive Internal Medicine Work Phone: Comment on above: PATIENT WAS FASTINGP ERFORMED BY: ORTIZ Ameya Mpjbpa7772 [facility] [id number] LIPID PANEL ([id number])Ordered B y: Care Attendant on 12-16-2016 Cholesterol in HDL mass conc 56 mg/dL Normal [facility] Work Phone: Comment on above: PATIENT WAS FASTINGP ERFORMED BY: ORTIZ [facility] Ccbjtm3702 [facility] [id number] Information: [id number], [id number] Cholesterol in LDL mass conc 44 mg/dL Normal 0-99 [facility] Work Phone: Comment on above: PATIENT WAS FASTINGP ERFORMED BY: ORTIZ Ameya Bhrrxd3958 [facility] [id number] Information: [id number], [id number] Cholesterol in LDL/Cholesterol in HDL mass ratio 0.8 {ratio_units} Normal 0.0-3.2 [facility] Work Phone: Comment on above: LDL/HDL Ratio Men Wo men 1/2 Avg.Risk 1.0 1.5 Avg.Risk 3.6 3.2 2X Avg.Risk 6.2 5.0 3X Avg.Risk 8.0 6.1 PATIENT WAS FASTINGP ERFORMED BY: ORTIZ [facility] Ysywpo5592 [facility] [id number] Information: [id number], [id number] Cholesterol in VLDL mass conc 27 mg/dL Normal 5-40 [facility] Work Phone: Comment on above: PATIENT WAS FASTINGP ERFORMED BY: ORTIZ Ameya Plhvwj1718 [facility] [id number] Information: [id number], [id number] Cholesterol mass conc 127 mg/dL Normal 100-199 Com prehensive Internal Medicine Work Phone: Comment on above: PATIENT WAS FASTINGP ERFORMED BY: ORTIZ [facility] Exvvpx5255 [address] [facility] [place] [id number] Information: [id number], [id number] Triglyceride mass conc 135 mg/dL Normal 0-149 [facility] Work Phone: Comment on above: PATIENT WAS FASTINGP ERFORMED BY: ORTIZ [facility] Wqmyzl0801 [address] [facility] [place] [id number] Information: [id number], [id number] Clinical Lists Update: Prelo photo checker 10-31-2016 Left ventricular Ejection fraction 70 % Invalid Interpretation Code [facility] Work Phone: Lipid Panel ([id number])Ordered B y: Care Attendant on 09-16-2016 Cholesterol in HDL mass conc 44 mg/dL Normal [facility] Work Phone: Comment on above: PATIENT WAS FASTINGP ERFORMED BY: ORTIZ [facility] Amrjen9811 [facility] [id number] Cholesterol in LDL mass conc 161 mg/dL Abnormal 0-99 [facility] Work Phone: Comment on above: PATIENT WAS FASTINGP ERFORMED BY: ORTIZ [facility] Cbpcgy3093 [address] [facility] [id number] Cholesterol in LDL/Cholesterol in HDL mass ratio 3.7 {ratio_units} Abnormal 0.0-3.2 [facility] Work Phone: Comment on above: LDL/HDL Ratio Men Wo men 1/2 Avg.Risk 1.0 1.5 Avg.Risk 3.6 3.2 2X Avg.Risk 6.2 5.0 3X Avg.Risk 8.0 6.1 PATIENT WAS FASTINGP ERFORMED BY: ORTIZ [facility] Qihytw4503 [address] [facility] [place] [id number] Cholesterol in VLDL mass conc 28 mg/dL Normal 5-40 [facility] Work Phone: Comment on above: PATIENT WAS FASTINGP ERFORMED BY: ORTIZ [facility] Udcboe8863 [address] [facility] [place] [id number] Cholesterol mass conc 233 mg/dL Abnormal 100-199 [facility] prehensive Internal Medicine Work Phone: Comment on above: PATIENT WAS FASTINGP ERFORMED BY: [facility] Oejxfc1758 [address] [facility] Hospitalbl[facility] [place] [id number] Triglyceride mass conc 139 mg/dL Normal 0-149 Co [facility] Internal Medicine Work Phone: Comment on above: PATIENT WAS FASTINGP ERFORMED BY: [facility] Cvohxs8663 [address] [facility] [id number] VITAMIN B-12 (CYANOCOBALAMIN ) ([id number])Ordered By: Care Attendant on 09-16-2016 Cobalamin (Vitamin B12) mass conc 788 pg/mL Normal 211-946 [facility] Work Phone: Comment on above: PATIENT WAS FASTINGP ERFORMED BY: CB [facility] Rzppnw3277 [address] [facility] [place] [id number] CALCIFIDIOL (12792) VIT D 25 Ordered By: Care Attendant on 07-01-2016 25-Hydroxyvitamin D2+25-Hydroxyvitamin D3 mass conc 34.8 ng/mL Normal 30.0-100.0 [facility] Work Phone: Comment on above: Vitamin D deficiency has been defined by the [place] [facility] and an Endocrine Society practice guideline as alevel of serum 25-OH vitamin D less than 20 ng/mL (1,2).The Endocrine Society went on to further define vitamin Dinsufficiency as a level between 21 and 29 ng/mL (2).1. IOM ([place] of Medicine). 2010. Dietary reference intakes for calcium and D. [place]: The National Academies Press.2. Allie MF, Emile [place], Natalie POOLE, et al. Evaluation, treatment, and prevention of vitamin D deficiency: an Endocrine Society clinical practice guideline. JCEM. 2010; 96(7):1911-30. PATIENT WAS FASTINGP ERFORMED BY: CB [facility] Xcjnhh2867 [address] [facility]in [place] [id number] CBC W/AUTO DIFF WBC (99101)O rdered By: Care Attendant on 07-01-2016 Basophils #/vol (Bld) 0.0 {x10E3/uL} Normal 0.0-0.2 [facility] Work Phone: Comment on above: PATIENT WAS FASTINGP ERFORMED BY: ORTIZ [facility] Fpknhu5736 [address] [facility] [place] [id number] Basophils/100 WBC (Bld) 0 % Normal [facility] Work Phone: Comment on above: PATIENT WAS FASTINGP ERFORMED BY: ORTIZ [facility] Slpkll1056 [address] RoadFormerly [facility] Carein [place] [id number] Eosinophils #/vol (Bld) 0.1 {x10E3/uL} Normal 0.0-0.4 [facility] Work Phone: Comment on above: PATIENT WAS FASTINGP ERFORMED BY: ORTIZ LabAleksandr CroweKjqkmk7878 [address] [facility] [place] [id number] Eosinophils/100 WBC (Bld) 2 % Normal [facility] Work Phone: Comment on above: PATIENT WAS FASTINGP ERFORMED BY: ORTIZ Crowelin6370 [facility] [id number] Erythrocyte distribution width Ratio (RBC) 14.0 % Normal 12.3-15.4 [facility] Work Phone: Comment on above: PATIENT WAS FASTINGP ERFORMED BY: ROTIZ Crowelin6370 [facility] [id number] Hematocrit Volume Fraction (Bld) 42.4 % Normal 34.0-46.6 [facility] Work Phone: Comment on above: PATIENT WAS FASTINGP ERFORMED BY: ORTIZ [facility] Zzgwpj8082 [address] [facility] [id number] Hemoglobin mass conc (Bld) 14.1 g/dL Normal 11.1-15.9 [facility] Work Phone: Comment on above: PATIENT WAS FASTINGP ERFORMED BY: ORTIZ [facility] Losnam8342 [address] [facility] [place] [id number] Immature granulocytes #/vol (Bld) 0.0 {x10E3/uL} Normal 0.0-0.1 [facility] Work Phone: Comment on above: PATIENT WAS FASTINGP ERFORMED BY: ORTIZ [facility] Pwtmab9150 [address] [facility] [place] [id number] Immature granulocytes/100 WBC (Bld) 0 % Normal [facility] Work Phone: Comment on above: PATIENT WAS FASTINGP ERFORMED BY: ORTIZ [facility] Pbnltw3801 [address] [facility] [id number] Lymphocytes #/vol (Bld) 1.8 {x10E3/uL} Normal 0.7-3.1 [facility] Work Phone: Comment on above: PATIENT WAS FASTINGP ERFORMED BY: ORTIZ [facility]Pers[facility] Ptxxvr7975 [address] [facility] [id number] Lymphocytes/100 WBC (Bld) 31 % Normal [facility] Work Phone: Comment on above: PATIENT WAS FASTINGP ERFORMED BY: ORTIZ [facility]Pers[facility] Ijjjtt6834 [address] [facility] [id number] MCH Entitic mass (RBC) 29.7 pg Normal 26.6-33.0 [facility] Internal Medicine Work Phone: Comment on above: PATIENT WAS FASTINGP ERFORMED BY: ORTIZ [facility]Pers[facility] Gcfgno8458 [address] [facility] [id number] MCHC mass conc (RBC) 33.3 g/dL Normal 31.5-35.7 [facility] Internal Medicine Work Phone: Comment on above: PATIENT WAS FASTINGP ERFORMED BY: ORTIZ [facility]Pers[facility] Wtrqpp7688 [address] [facility] [id number] MCV Entitic volume (RBC) 89 fL Normal 79-97 [facility] Internal Medicine Work Phone: Comment on above: PATIENT WAS FASTINGP ERFORMED BY: ORTIZ [facility] Xifcok4242 [address] [facility] [id number] Monocytes #/vol (Bld) 0.4 {x10E3/uL} Normal 0.1-0.9 [facility] Internal Medicine Work Phone: Comment on above: PATIENT WAS FASTINGP ERFORMED BY: ORTIZ [facility] Urgmwl0503 [address] [facility] [place] [id number] Monocytes/100 WBC (Bld) 6 % Normal [facility] Work Phone: Comment on above: PATIENT WAS FASTINGP ERFORMED BY: [facility] Ayecof2607 [facility] [id number] Neutrophils #/vol (Bld) 3.7 {x10E3/uL} Normal 1.4-7.0 [facility] Work Phone: Comment on above: PATIENT WAS FASTINGP ERFORMED BY: [facility]6370 [facility] [id number] Neutrophils/100 WBC (Bld) 61 % Normal [facility] Work Phone: Comment on above: PATIENT WAS FASTINGP ERFORMED BY: [facility] Xnodyr5833 [facility] [id number] Platelets #/vol (Bld) 221 {x10E3/uL} Normal 150-379 [facility] Work Phone: Comment on above: PATIENT WAS FASTINGP ERFORMED BY: [facility] Lhzqdx1305 [facility] [id number] RBC #/vol (Bld) 4.75 {x10E6/uL} Normal 3.77-5.28 [facility] Internal Medicine Work Phone: Comment on above: PATIENT WAS FASTINGP ERFORMED BY: [facility]6370 [facility] [id number] WBC #/vol (Bld) 6.0 {x10E3/uL} Normal 3.4-10.8 [facility] Internal Medicine Work Phone: Comment on above: PATIENT WAS FASTINGP ERFORMED BY: [facility]6370 [facility] [id number] LIPID PANEL ([id number])Ordered B y: Care Attendant on 07-01-2016 Cholesterol in HDL mass conc 41 mg/dL Normal [facility] Work Phone: Comment on above: According to ATP-III Guidelines, HDL-C >59 mg/dL is considered anegative risk factor for CHD. PATIENT WAS FASTINGP ERFORMED BY: AmeyaKindred Hospital at MorrisSrmsge8985 [facility] [id number] Cholesterol in LDL mass conc 129 mg/dL Abnormal 0-99 [facility] Work Phone: Comment on above: PATIENT WAS FASTINGP ERFORMED BY: ORTIZ Nilda Crowelin6370 [facility] [id number] Cholesterol in LDL/Cholesterol in HDL mass ratio 3.1 {ratio_units} Normal 0.0-3.2 [facility] Work Phone: Comment on above: LDL/HDL Ratio Men Wo men 1/2 Avg.Risk 1.0 1.5 Avg.Risk 3.6 3.2 2X Avg.Risk 6.2 5.0 3X Avg.Risk 8.0 6.1 PATIENT WAS FASTINGP ERFORMED BY: ORTIZ Ameyaaustyn Qruoln1993 [facility] [id number] Cholesterol in VLDL mass conc 45 mg/dL Abnormal 5-40 [facility] Work Phone: Comment on above: PATIENT WAS FASTINGP ERFORMED BY: ORTIZ [place] 8976670 [facility] [id number] Cholesterol mass conc 215 mg/dL Abnormal 100-199 Com prehensive Internal Medicine Work Phone: Comment on above: PATIENT WAS FASTINGP ERFORMED BY: ORTIZ Ameya Xffltx9253 [facility] [id number] Triglyceride mass conc 223 mg/dL Abnormal 0-149 Co mprehensive Internal Medicine Work Phone: Comment on above: PATIENT WAS FASTINGP ERFORMED BY: ORTIZ [facility]Asc[facility]6370 [facility] [id number] METABOLIC PANEL, COMPREHENSI VE ([id number])Ordered By: Care Attendant on 07-01-2016 Albumin mass conc 4.1 g/dL Normal 3.5-4.8 Compreh ensive Internal Medicine Work Phone: Comment on above: PATIENT WAS FASTINGP ERFORMED BY: ORTIZ [facility]Asc[facility]6370 [facility] [id number] Albumin/Globulin mass ratio 1.6 {ratio} Normal 1.1-2.5 [facility] Work Phone: Comment on above: PATIENT WAS FASTINGP ERFORMED BY: ORTIZ LabCoaustyn CroweVxawyg5360 [address] [facility] [place] [id number] ALP enzyme act/vol 98 [iU]/L Normal 39-117 [facility] Internal Medicine Work Phone: Comment on above: PATIENT WAS FASTINGP ERFORMED BY: ORTIZ LabAleksandr CroweHirsmt5746 [address] [facility] [place] [id number] ALT enzyme act/vol 11 [iU]/L Normal 0-32 [facility] Internal Medicine Work Phone: Comment on above: PATIENT WAS FASTINGP ERFORMED BY: ORTIZ LabAleksandr CroweMizwph4959 [address] [facility] [id number] AST enzyme act/vol 17 [iU]/L Normal 0-40 [facility] Internal Medicine Work Phone: Comment on above: PATIENT WAS FASTINGP ERFORMED BY: ORTIZ Crowelin6370 [address] [facility] [id number] Bilirubin mass conc 0.2 mg/dL Normal 0.0-1.2 [facility] Internal Medicine Work Phone: Comment on above: PATIENT WAS FASTINGP ERFORMED BY: ORTIZ Chester6370 [facility] [id number] Calcium mass conc 9.8 mg/dL Normal 8.7-10.3 [facility]pre[facility] Internal Medicine Work Phone: Comment on above: PATIENT WAS FASTINGP ERFORMED BY: ORTIZ [facility] Heifna2695 [facility] [id number] Chloride molar conc 101 mmol/L Normal 97-106 [facility] Internal Medicine Work Phone: Comment on above: Please note refere nce interval change PATIENT WAS FASTINGP ERFORMED BY: ORTIZ LabCoaustyn Bmfnpz2270 [address] [facility] [place] [id number] CO2 molar conc 27 mmol/L Normal 18-29 Comprehens trupti Internal Medicine Work Phone: Comment on above: PATIENT WAS FASTINGP ERFORMED BY: ORTIZ [facility] Gwnqaf0867 Rodriguez RoadDublin [place] [id number] Creatinine mass conc 0.89 mg/dL Normal 0.57-1.00 Comp rehensive Internal Medicine Work Phone: Comment on above: PATIENT WAS FASTINGP ERFORMED BY: [facility] Deptif3418 Rodriguez RoadDublin [place] [id number] GFR/1.73 sq M predicted among blacks CKD-EPI vol rate/area (S/P/Bld) 72 mL/min/1.73 Normal [facility] Work Phone: Comment on above: PATIENT WAS FASTINGP ERFORMED BY: [facility] Oqgtvc3269 Rodriguez RoadDublin [place] [id number] GFR/1.73 sq M predicted among non-blacks CKD-EPI vol rate/area (S/P/Bld) 63 mL/min/1.73 Normal Comprehensiv e Internal Medicine Work Phone: Comment on above: PATIENT WAS FASTINGP ERFORMED BY: [facility] Rkonxf6595 [address] RoadFormerly [facility] Carein [place] [id number] Globulin mass conc (S) 2.5 g/dL Normal 1.5-4.5 Co [facility] hospitalehensive Internal Medicine Work Phone: Comment on above: PATIENT WAS FASTINGP ERFORMED BY: [facility] Bdobxx8415 Rodriguez RoadDublin [place] [id number] Glucose mass conc 92 mg/dL Normal 65-99 Compreh ensive Internal Medicine Work Phone: Comment on above: PATIENT WAS FASTINGP ERFORMED BY: [facility] Wkvjjg8404 [address] [facility]bl[facility] [place] [id number] Potassium molar conc 5.0 mmol/L Normal 3.5-5.2 Comp rehensive Internal Medicine Work Phone: Comment on above: Please note refere nce interval change PATIENT WAS FASTINGP ERFORMED BY: [facility] Zqupzl3846 Rodriguez RoadDublin [place] [id number] Protein mass conc 6.6 g/dL Normal 6.0-8.5 Compreh ensive Internal Medicine Work Phone: Comment on above: PATIENT WAS FASTINGP ERFORMED BY: ORTIZ [facility] Kddbke9341 Rodriguez RoadDublin [place] [id number] Sodium molar conc 143 mmol/L Normal 136-144 Compreh ensive Internal Medicine Work Phone: Comment on above: Please note refere nce interval change PATIENT WAS FASTINGP ERFORMED BY: CB [facility] Ltyrtz7898 Rodriguez RoadDublin [place] [id number] Urea nitrogen mass conc 9 mg/dL Normal 8- [facility] Work Phone: Comment on above: PATIENT WAS FASTINGP ERFORMED BY: ORTIZ [facility] Mlewog9456 Rodriguez RoadDublin [place] [id number] Urea nitrogen/Creatinine mass ratio 10 mg/mg Abnormal 11- [facility] Work Phone: Comment on above: PATIENT WAS FASTINGP ERFORMED BY: ORTIZ [facility] Nzijqd5532 Rodriguez RoadDuin [place] [id number] MICROALBUMINOrdered By: Snapwiz em Rn Diabetes Educator on 07-01-2016 Albumin DL <= 20 mg/L mass conc (U) 5.9 ug/mL Normal [facility] Work Phone: Comment on above: PATIENT WAS FASTINGP ERFORMED BY: ORTIZ [facility] Hhgkkf4861 Rodriguez RoadDublin [place] [id number] Albumin/Creatinine mass ratio (U) 4.3 {mg/g_creat} Normal 0.0-30.0 [facility] Work Phone: Comment on above: PATIENT WAS FASTINGP ERFORMED BY: [facility] Kfuouv0608 Rodriguez RoadDublin [place] [id number] Creatinine mass conc (U) 138.1 mg/dL Normal [facility] Work Phone: Comment on above: PATIENT WAS FASTINGP ERFORMED BY: CB [facility] Gqumbe6655 Rodriguez RoadDublin [place] [id number] TSH ([id number])Ordered By: Snapwize m Rn Diabetes Educator on 07-01-2016 Thyrotropin Qn 3.470 {uIU/mL} Normal 0.450-4.50 0 [facility] Work Phone: Comment on above: PATIENT WAS FASTINGP ERFORMED BY: ORTIZ Crowelin6370 [address] RoadDublin [place] [id number] URINALYSIS, W/ MICRO ([id number]) Ordered By: Care Attendant on 07-01-2016 Appearance Nom (U) Clear Normal Compre hensive Internal Medicine Work Phone: Comment on above: PATIENT WAS FASTINGP ERFORMED BY: ORTIZ Crowelin6370 [address] RoadDublin [place] [id number] Bilirubin Ql (U) Negative Normal Comprehe nsive Internal Medicine Work Phone: Comment on above: PATIENT WAS FASTINGP ERFORMED BY: ROTIZ Crowelin6370 [address] Roadblin [place] [id number] Color Nom (U) Yellow Normal Comprehensi ve Internal Medicine Work Phone: Comment on above: PATIENT WAS FASTINGP ERFORMED BY: ORTIZ Crowelin6370 [address]Formerly [facility] Carein [place] [id number] Glucose Ql (U) Negative Normal Comprehens trupti Internal Medicine Work Phone: Comment on above: PATIENT WAS FASTINGP ERFORMED BY: ORTIZ Crowelin6370 [address] RoadTul[place] [id number] Hemoglobin Ql (U) Negative Normal Compreh ensive Internal Medicine Work Phone: Comment on above: PATIENT WAS FASTINGP ERFORMED BY: ORTIZ Crowelin6370 [address]Formerly [facility] Carein [place] [id number] Ketones Ql (U) Negative Normal Comprehens trupti Internal Medicine Work Phone: Comment on above: PATIENT WAS FASTINGP ERFORMED BY: ORTIZ LabAleksandr CroweNcrvod3524 [address] RoadDublin [place] [id number] Leukocyte esterase Test strip Ql (U) Negative Normal [facility] Work Phone: Comment on above: PATIENT WAS FASTINGP ERFORMED BY: ORTIZ Crowelin6370 [address] RoadDublin [place] [id number] Microscopic observation LM Nom (Urine sed) MICRON Normal [facility] Work Phone: Comment on above: Microscopic follows if indicated. PATIENT WAS FASTINGP ERFORMED BY: ORTIZ Crowelin6370 [address] [facility] [place] [id number] Microscopic observation LM Nom (Urine sed) See below: Normal [facility] Work Phone: Comment on above: Microscopic was derrick cated and was performed. PATIENT WAS FASTINGP ERFORMED BY: ORTIZ Crowelin6370 [address] [facility] [id number] Nitrite Ql (U) Negative Normal Comprehens trupti Internal Medicine Work Phone: Comment on above: PATIENT WAS FASTINGP ERFORMED BY: ORTIZ Crowelin6370 [facility] [id number] pH (U) 5.5 [pH] Normal 5.0-7.5 [facility] Work Phone: Comment on above: PATIENT WAS FASTINGP ERFORMED BY: ORTIZ [place]6370 [facility] [id number] Protein Ql (U) Negative Normal Comprehens trupti Internal Medicine Work Phone: Comment on above: PATIENT WAS FASTINGP ERFORMED BY: ORTIZ Crowelin6370 [facility] [id number] Specific gravity Relative Density (U) 1.016 1 Normal 1.005-1.03 0 [facility] Work Phone: Comment on above: PATIENT WAS FASTINGP ERFORMED BY: ORTIZ Chester6370 [facility] [id number] Urobilinogen Test strip mass conc (U) 0.2 mg/dL Normal 0.2-1.0 Comprehensiv e Internal Medicine Work Phone: Comment on above: PATIENT WAS FASTINGP ERFORMED BY: ORTIZ Crowelin6370 [address] [facility] [id number] VITAMIN B-12 (CYANOCOBALAMIN ) ([id number])Ordered By: Care Attendant on 07-01-2016 Cobalamin (Vitamin B12) mass conc 861 pg/mL Normal 211-946 [facility] Work Phone: Comment on above: PATIENT WAS FASTINGP ERFORMED BY: Dhf Taxi70 HelloWalletAtrium Health Cleveland [id number] CALCIFIDIOL (98439) VIT D 25 Ordered By: Care Attendant on 12-05-2015 25-Hydroxyvitamin D2+25-Hydroxyvitamin D3 mass conc 40.5 ng/mL Normal 30.0-100.0 [facility] Work Phone: Comment on above: Vitamin D deficiency has been defined by the [place] ofMedicine and an Endocrine Society practice guideline as alevel of serum 25-OH vitamin D less than 20 ng/mL (1,2).The Endocrine Society went on to further define vitamin Dinsufficiency as a level between 21 and 29 ng/mL (2).1. IOM ([place] of Medicine). 2010. Dietary reference intakes for calcium and D. [place]: The National Academies Press.2. Allie MF, Emile PONCE, Natalie POOLE, et al. Evaluation, treatment, and prevention of vitamin D deficiency: an Endocrine Society clinical practice guideline. JCEM. 2010; 96(7):1911-30. PATIENT WAS FASTINGP ERFORMED BY: Viblio6370 [address] [facility] [id number] CBC W/AUTO DIFF WBC ([id number])O rdered By: Care Attendant on 12-05-2015 Basophils #/vol (Bld) 0.0 {x10E3/uL} Normal 0.0-0.2 [facility] Work Phone: Comment on above: PATIENT WAS FASTINGP ERFORMED BY: M-DISC Arcaqb5235 [facility] [id number] Information: [id number] Basophils/100 WBC (Bld) 1 % Normal [facility] Work Phone: Comment on above: PATIENT WAS FASTINGP ERFORMED BY: Viblio6370 [facility] [id number] Information: [id number] Eosinophils #/vol (Bld) 0.2 {x10E3/uL} Normal 0.0-0.4 [facility] Work Phone: Comment on above: PATIENT WAS FASTINGP ERFORMED BY: ORTIZ [place]oEv[place] 0715770 [facility] [id number] Information: [id number] Eosinophils/100 WBC (Bld) 4 % Normal [facility] Work Phone: Comment on above: PATIENT WAS FASTINGP ERFORMED BY: [address] [id number] Information: [id number] Erythrocyte distribution width Ratio (RBC) 13.7 % Normal 12.3-15.4 [facility] Work Phone: Comment on above: PATIENT WAS FASTINGP ERFORMED BY: [address] [id number] Information: [id number] Hematocrit Volume Fraction (Bld) 40.2 % Normal 34.0-46.6 [facility] Work Phone: Comment on above: PATIENT WAS FASTINGP ERFORMED BY: [address] [id number] Information: [id number] Hemoglobin mass conc (Bld) 13.6 g/dL Normal 11.1-15.9 [facility] Work Phone: Comment on above: PATIENT WAS FASTINGP ERFORMED BY: [address] [id number] Information: [id number] Immature granulocytes #/vol (Bld) 0.0 {x10E3/uL} Normal 0.0-0.1 [facility] Work Phone: Comment on above: PATIENT WAS FASTINGP ERFORMED BY: [address] [id number] Information: [id number] Immature granulocytes/100 WBC (Bld) 0 % Normal [facility] Work Phone: Comment on above: PATIENT WAS FASTINGP ERFORMED BY: [facility]6370 [facility] [id number] Information: [id number] Lymphocytes #/vol (Bld) 1.2 {x10E3/uL} Normal 0.7-3.1 [facility] Work Phone: Comment on above: PATIENT WAS FASTINGP ERFORMED BY: [address] [id number] Information: [id number] Lymphocytes/100 WBC (Bld) 26 % Normal [facility] Work Phone: Comment on above: PATIENT WAS FASTINGP ERFORMED BY: [address] [id number] Information: [id number] MCH Entitic mass (RBC) 30.0 pg Normal 26.6-33.0 [facility] Work Phone: Comment on above: PATIENT WAS FASTINGP ERFORMED BY: [address] [id number] Information: [id number] MCHC mass conc (RBC) 33.8 g/dL Normal 31.5-35.7 [facility] Internal Medicine Work Phone: Comment on above: PATIENT WAS FASTINGP ERFORMED BY: [address] [id number] Information: [id number] MCV Entitic volume (RBC) 89 fL Normal 79-97 [facility] Internal Medicine Work Phone: Comment on above: PATIENT WAS FASTINGP ERFORMED BY: [address] [id number] Information: [id number] Monocytes #/vol (Bld) 0.5 {x10E3/uL} Normal 0.1-0.9 [facility] Work Phone: Comment on above: PATIENT WAS FASTINGP ERFORMED BY: [address]Dublin [place] [id number] Information: [id number] Monocytes/100 WBC (Bld) 10 % Normal [facility] Work Phone: Comment on above: PATIENT WAS FASTINGP ERFORMED BY: ORTIZ [place] [id number] [facility] [id number] Information: [id number] Neutrophils #/vol (Bld) 2.7 {x10E3/uL} Normal 1.4-7.0 [facility] Work Phone: Comment on above: PATIENT WAS FASTINGP ERFORMED BY: ORTIZ [address] [id number] Information: [id number] Neutrophils/100 WBC (Bld) 59 % Normal [facility] Work Phone: Comment on above: PATIENT WAS FASTINGP ERFORMED BY: ORTIZ [address] [id number] Information: [id number] Platelets #/vol (Bld) 206 {x10E3/uL} Normal 150-379 [facility] Work Phone: Comment on above: PATIENT WAS FASTINGP ERFORMED BY: ORTIZ [facility]6370 [facility] [id number] Information: [id number] RBC #/vol (Bld) 4.54 {x10E6/uL} Normal 3.77-5.28 [facility] Internal Medicine Work Phone: Comment on above: PATIENT WAS FASTINGP ERFORMED BY: [place] 9063870 [facility] [id number] Information: [id number] WBC #/vol (Bld) 4.5 {x10E3/uL} Normal 3.4-10.8 [facility] Internal Medicine Work Phone: Comment on above: PATIENT WAS FASTINGP ERFORMED BY: [place] 9063870 [facility] [id number] Information: [id number] LIPID PANEL (29817)Ordered B y: Care Attendant on 12-05-2015 Cholesterol in HDL mass conc 46 mg/dL Normal [facility] Work Phone: Comment on above: According to ATP-III Guidelines, HDL-C >59 mg/dL is considered anegative risk factor for CHD. PATIENT WAS FASTINGP ERFORMED BY: ORTIZ [place] SocialBuyAt[facility] [id number] Cholesterol in LDL mass conc 126 mg/dL Abnormal 0-99 [facility] Work Phone: Comment on above: PATIENT WAS FASTINGP ERFORMED BY: ORTIZ [place]6[address] [facility] [id number] Cholesterol in LDL/Cholesterol in HDL mass ratio 2.7 {ratio_units} Normal 0.0-3.2 [facility] Work Phone: Comment on above: LDL/HDL Ratio Men Wo men 1/2 Avg.Risk 1.0 1.5 Avg.Risk 3.6 3.2 2X Avg.Risk 6.2 5.0 3X Avg.Risk 8.0 6.1 PATIENT WAS FASTINGP ERFORMED BY: ORTIZ [place]6[address] [facility] [id number] Cholesterol in VLDL mass conc 31 mg/dL Normal 5-40 [facility] Work Phone: Comment on above: PATIENT WAS FASTINGP ERFORMED BY: ORTIZ [place]6[address] [facility] [id number] Cholesterol mass conc 203 mg/dL Abnormal 100-199 Com prehensive [facility] Medicine Work Phone: Comment on above: PATIENT WAS FASTINGP ERFORMED BY: ORTIZ [place] SocialBuyAt[facility] [id number] Triglyceride mass conc 156 mg/dL Abnormal 0-149 Co mprehensive [facility] Work Phone: Comment on above: PATIENT WAS FASTINGP ERFORMED BY: ORTIZ [place]6[address] [facility] [id number] METABOLIC PANEL, COMPREHENSI VE (69222)Ordered By: Care Attendant on 12-05-2015 Albumin mass conc 4.2 g/dL Normal 3.5-4.8 Compreh ensive Internal Medicine Work Phone: Comment on above: PATIENT WAS FASTINGP ERFORMED BY: CB [facility] Ozsmms7289 Rodriguez RoadDublin [place] [id number] Albumin/Globulin mass ratio 1.8 {ratio} Normal 1.1-2.5 [facility] Work Phone: Comment on above: PATIENT WAS FASTINGP ERFORMED BY: CB [facility] Uvwvtt1315 Rodriguez RoadDublin [place] [id number] ALP enzyme act/vol 71 [iU]/L Normal 39-117 Compre [facility] Internal Medicine Work Phone: Comment on above: PATIENT WAS FASTINGP ERFORMED BY: CB [facility] Rvpogk2749 Rodriguez RoadDublin [place] [id number] ALT enzyme act/vol 10 [iU]/L Normal 0-32 Compre [facility] Internal Medicine Work Phone: Comment on above: PATIENT WAS FASTINGP ERFORMED BY: CB [facility] Wpkrcf0422 Rodriguez RoadDublin [place] [id number] AST enzyme act/vol 17 [iU]/L Normal 0-40 [facility] Work Phone: Comment on above: PATIENT WAS FASTINGP ERFORMED BY: CB [facility] Nlkmzq3889 Rodriguez RoadDublin [place] [id number] Bilirubin mass conc 0.4 mg/dL Normal 0.0-1.2 Compr [facility] Internal Medicine Work Phone: Comment on above: PATIENT WAS FASTINGP ERFORMED BY: CB [facility] Czjprb9893 [address] RoadDublin [place] [id number] Calcium mass conc 9.5 mg/dL Normal 8.7-10.3 Compreh [facility] hospitalive [facility] Work Phone: Comment on above: PATIENT WAS FASTINGP ERFORMED BY: CB [facility] Ipgeaq1476 [address] RoadDublin [place] [id number] Chloride molar conc 106 mmol/L Normal 97-108 Compr ensive Internal Medicine Work Phone: Comment on above: PATIENT WAS FASTINGP ERFORMED BY: ORTIZ [facility] Pngbev9066 Rodriguez Roadblin [place] [id number] CO2 molar conc 25 mmol/L Normal 18-29 Comprehens trupti Internal Medicine Work Phone: Comment on above: PATIENT WAS FASTINGP ERFORMED BY: ORTIZ [facility] Lgboqs5597 [address] RoadFormerly [facility] Carein [place] [id number] Creatinine mass conc 0.92 mg/dL Normal 0.57-1.00 Comp [facility] centerensive Internal Medicine Work Phone: Comment on above: PATIENT WAS FASTINGP ERFORMED BY: ORTIZ [facility] Zsfunb3[address] [facility] [id number] GFR/1.73 sq M predicted among blacks CKD-EPI vol rate/area (S/P/Bld) 70 mL/min/1.73 Normal [facility] Work Phone: Comment on above: PATIENT WAS FASTINGP ERFORMED BY: ORTIZ [facility] Gjjtaa9151 Rodriguez RoadTulsa [place] [id number] GFR/1.73 sq M predicted among non-blacks CKD-EPI vol rate/area (S/P/Bld) 61 mL/min/1.73 Normal Comprehensiv e Internal Medicine Work Phone: Comment on above: PATIENT WAS FASTINGP ERFORMED BY: ORTIZ [facility] Nkoxwk9[address] [facility]in [place] [id number] Globulin mass conc (S) 2.3 g/dL Normal 1.5-4.5 Co [facility]ensive [facility] Work Phone: Comment on above: PATIENT WAS FASTINGP ERFORMED BY: ORTIZ [facility] Gmyapo29[address] [facility] Hospitalblin [place] [id number] Glucose mass conc 84 mg/dL Normal 65-99 Compreh ensive Internal Medicine Work Phone: Comment on above: PATIENT WAS FASTINGP ERFORMED BY: ORTIZ [facility] Ynsomd9[address] [facility]in [place] [id number] Potassium molar conc 4.6 mmol/L Normal 3.5-5.2 Comp rehensive Internal Medicine Work Phone: Comment on above: PATIENT WAS FASTINGP ERFORMED BY: ORTIZ MeenaAleksandr CroweCkkzxi9778 [facility] [id number] Protein mass conc 6.5 g/dL Normal 6.0-8.5 Compreh ensive Internal Medicine Work Phone: Comment on above: PATIENT WAS FASTINGP ERFORMED BY: ORTIZ Ameyaaustyn CroweQlowvq3840 [facility] [id number] Sodium molar conc 145 mmol/L Abnormal 134-144 Compreh ensive Internal Medicine Work Phone: Comment on above: PATIENT WAS FASTINGP ERFORMED BY: ORTIZ MeenaAleksandr CroweRxtocg7092 [facility] [id number] Urea nitrogen mass conc 16 mg/dL Normal 8-27 [facility] Work Phone: Comment on above: PATIENT WAS FASTINGP ERFORMED BY: ORTIZ Crowelin6370 [facility] [id number] Urea nitrogen/Creatinine mass ratio 17 mg/mg Normal 11-26 [facility] Work Phone: Comment on above: PATIENT WAS FASTINGP ERFORMED BY: ORTIZ Crowelin6370 [facility] [id number] MICROALBUMINOrdered By: Syst em Rn Diabetes Educator on 12-05-2015 Albumin DL <= 20 mg/L mass conc (U) 25.6 ug/mL Abnormal 0.0-17.0 [facility] Work Phone: Comment on above: PATIENT WAS FASTINGP ERFORMED BY: ORTIZ MeenaAleksandr CroweTwkniw2892 [facility] [id number] Albumin/Creatinine mass ratio (U) 9.3 {mg/g_creat} Normal 0.0-30.0 [facility] Work Phone: Comment on above: PATIENT WAS FASTINGP ERFORMED BY: ORTIZ MeenaAleksandr CroweJekfwd2871 [facility] [id number] Creatinine mass conc (U) 276.5 mg/dL Normal 15.0-278.0 [facility] Work Phone: Comment on above: PATIENT WAS FASTINGP ERFORMED BY: ORTIZ [facility] Rrytlb7939 Rodriguez RoadDublin [place] [id number] TSH ([id number])Ordered By: Snapwize m Rn Diabetes Educator on 12-05-2015 Thyrotropin Qn 1.330 {uIU/mL} Normal 0.450-4.50 0 [facility] Work Phone: Comment on above: PATIENT WAS FASTINGP ERFORMED BY: ORTIZ [facility] Kfmnmy3365 Rodriguez RoadDublin [place] [id number] URINALYSIS, W/ MICRO ([id number]) Ordered By: Care Attendant on 12-05-2015 Appearance Nom (U) Clear Normal Compre hensive Internal Medicine Work Phone: Comment on above: PATIENT WAS FASTINGP ERFORMED BY: ORTIZ LabAleksandr CrowePxjsvp2937 [address] RoadDublin [place] [id number] Bilirubin Ql (U) Negative Normal Comprehe nsive Internal Medicine Work Phone: Comment on above: PATIENT WAS FASTINGP ERFORMED BY: ORTIZ [facility] Odwtkl1518 [address] RoadDublin [place] [id number] Color Nom (U) Yellow Normal Comprehensi ve Internal Medicine Work Phone: Comment on above: PATIENT WAS FASTINGP ERFORMED BY: ORTIZ LabCoaustyn CroweDgrdvt0740 [address] RoadDublin [place] [id number] Glucose Ql (U) Negative Normal Comprehens trupti Internal Medicine Work Phone: Comment on above: PATIENT WAS FASTINGP ERFORMED BY: ORTIZ [facility] Niuvxe9904 [address] RoadDublin [place] [id number] Hemoglobin Ql (U) Negative Normal Compreh ensive Internal Medicine Work Phone: Comment on above: PATIENT WAS FASTINGP ERFORMED BY: ORTIZ [facility] Ztveml8911 [address] RoadDublin [place] [id number] Ketones Ql (U) Negative Normal Comprehens trupti Internal Medicine Work Phone: Comment on above: PATIENT WAS FASTINGP ERFORMED BY: ORTIZ [facility] Bviehl4819 [address] RoadDublin [place] [id number] Leukocyte esterase Test strip Ql (U) Negative Normal [facility] Work Phone: Comment on above: PATIENT WAS FASTINGP ERFORMED BY: ORTIZ [facility] Ouhufx5670 [address] RoadDublin [place] [id number] Microscopic observation LM Nom (Urine sed) See below: Normal [facility] Work Phone: Comment on above: Microscopic was derrick cated and was performed. PATIENT WAS FASTINGP ERFORMED BY: ORTIZ [facility]6[address] RoadFormerly [facility] Carein [place] [id number] Nitrite Ql (U) Negative Normal Comprehens trupti Internal Medicine Work Phone: Comment on above: PATIENT WAS FASTINGP ERFORMED BY: ORTIZ [facility] Vpleue9059 [address] [facility] [id number] pH (U) 5.5 [pH] Normal 5.0-7.5 [facility] Work Phone: Comment on above: PATIENT WAS FASTINGP ERFORMED BY: ORTIZ [facility] Xpklfu3745 [address] [facility] [id number] Protein Ql (U) 1+ Abnormal Comprehens trupti Internal Medicine Work Phone: Comment on above: PATIENT WAS FASTINGP ERFORMED BY: [facility] Wkuwsk2220 [facility] [id number] Specific gravity Relative Density (U) 1.029 1 Normal 1.005-1.03 0 [facility] Work Phone: Comment on above: PATIENT WAS FASTINGP ERFORMED BY: [facility] Jfkilo8[address] [facility]in [place] [id number] Urobilinogen Test strip mass conc (U) 0.2 mg/dL Normal 0.2-1.0 Comprehensiv e Internal Medicine Work Phone: Comment on above: PATIENT WAS FASTINGP ERFORMED BY: [facility] [facility] Hospitalblin [place] [id number] VITAMIN B-12 (CYANOCOBALAMIN ) ([id number])Ordered By: Care Attendant on 12-05-2015 Cobalamin (Vitamin B12) mass conc 465 pg/mL Normal 211-946 [facility] Work Phone: Comment on above: PATIENT WAS FASTINGP ERFORMED BY: [facility]6370 [facility] [id number] Fecal Occult Blood , Office (69207)Ordered By: Gabino Bullock on 11-08-2015 Hemoglobin.gastrointes tinal Ql (St) Negative Normal [facility] Work Phone: VITAMIN B-12 (CYANOCOBALAMIN ) (14158)Ordered By: Care Attendant on 08-27-2015 Cobalamin (Vitamin B12) mass conc 919 pg/mL Normal 211-946 [facility] Work Phone: Comment on above: PATIENT NOT FASTINGP ERFORMED BY: [facility]6370 Location LabsB[facility] [id number] Information: [id number] Clinical Lists Update: Prelo photo checker 05-26-2015 Anion gap 6 mmol/L Invalid Interpretation Code [facility] Work Phone: basophils as percent of blood leukocytes, manual count 0.5 % Invalid Interpretation Code [facility] Work Phone: BUN/Creatinine Ratio 18.8 mg/mg Invalid Interpretation Code [facility] Work Phone: Calcium 8.9 mg/dL Invalid Interpretation Code [facility] Work Phone: Chloride 106 mmol/L Invalid Interpretation Code [facility] Work Phone: CO2 31.0 mmol/L Invalid Interpretation Code [facility] Work Phone: Creatinine 0.85 mg/dL Invalid Interpretation Code [facility] Work Phone: eosinophils as percent of blood leukocytes, manual count 5.4 % High [facility] Work Phone: Erythrocytes (RBC) 4.14 10*6/uL [facility] Work Phone: Glucose 102 mg/dL Invalid Interpretation Code [facility] Work Phone: Hematocrit (HCT) 38.6 % Invalid Interpretation Code [facility] Work Phone: Hemoglobin (HGB) 12.6 g/dL Invalid Interpretation Code [facility] Work Phone: Lymphocytes/100 leukocytes 27.3 % Invalid Interpretation Code [facility] Work Phone: MCH 30.4 pg Invalid Interpretation Code [facility] Work Phone: MCHC 32.6 g/dL Invalid Interpretation Code [facility] Work Phone: MCV 93.2 fL Invalid Interpretation Code [facility] Work Phone: Monocytes/100 leukocytes 10.2 % High [facility] Work Phone: neutrophils, band form as percent of blood leukocytes, manual count 56.4 % Invalid Interpretation Code [facility] Work Phone: Platelets 162 10*3/mm3 Invalid Interpretation Code [facility] Work Phone: PMV by Bernard 9.6 fL Invalid Interpretation Code [facility] Work Phone: Potassium 4.3 mmol/L Invalid Interpretation Code [facility] Work Phone: RDW-CA 12.9 % Invalid Interpretation Code [facility] Work Phone: Sodium 143 mmol/L Invalid Interpretation Code [facility] Work Phone: Urea nitrogen 16 mg/dL Invalid Interpretation Code [facility] Work Phone: WBC (Leukocytes) 6.3 10*3/uL Invalid Interpretation Code [facility] Work Phone: Clinical Lists Update: Prelo photo checker 04-26-2015 Cholesterol 136 mg/dL Invalid Interpretation Code [facility] Work Phone: HDL Cholesterol 49 mg/dL Invalid Interpretation Code [facility] Work Phone: LDL Cholesterol 66 mg/dL Invalid Interpretation Code [facility] Work Phone: Triglyceride 105 mg/dL Invalid Interpretation Code [facility] Work Phone: very low density lipoproteins 21 mg/dL Invalid Interpretation Code [facility] Work Phone: CBC W/AUTO DIFF WBC (07875)O rdered By: Care Attendant on 10-19-2014 Basophils #/vol (Bld) 0.0 {x10E3/uL} Normal 0.0-0.2 [facility] Work Phone: Comment on above: PATIENT WAS FASTINGP ERFORMED BY: ORTIZ [facility]6370 [facility] [id number] Information: [id number] Basophils/100 WBC (Bld) 1 % Normal [facility] Work Phone: Comment on above: PATIENT WAS FASTINGP ERFORMED BY: [facility]6370 [facility] [id number] Information: [id number] Eosinophils #/vol (Bld) 0.2 {x10E3/uL} Normal 0.0-0.4 [facility] Work Phone: Comment on above: PATIENT WAS FASTINGP ERFORMED BY: ORTIZ [facility]6370 [facility] [id number] Information: [id number] Eosinophils/100 WBC (Bld) 5 % Normal [facility] Work Phone: Comment on above: PATIENT WAS FASTINGP ERFORMED BY: [facility]6370 [facility] [id number] Information: [id number] Erythrocyte distribution width Ratio (RBC) 13.5 % Normal 12.3-15.4 [facility] Work Phone: Comment on above: PATIENT WAS FASTINGP ERFORMED BY: [facility] Jdeekf0259 [facility] [id number] Information: [id number] Hematocrit Volume Fraction (Bld) 39.1 % Normal 34.0-46.6 [facility] Work Phone: Comment on above: PATIENT WAS FASTINGP ERFORMED BY: [facility] Ibxrvs5216 [facility] [id number] Information: [id number] Hemoglobin mass conc (Bld) 12.9 g/dL Normal 11.1-15.9 [facility] Work Phone: Comment on above: PATIENT WAS FASTINGP ERFORMED BY: [place] 9063870 [facility] [id number] Information: [id number] Immature granulocytes #/vol (Bld) 0.0 {x10E3/uL} Normal 0.0-0.1 [facility] Work Phone: Comment on above: PATIENT WAS FASTINGP ERFORMED BY: [address] [id number] Information: [id number] Immature granulocytes/100 WBC (Bld) 0 % Normal [facility] Work Phone: Comment on above: PATIENT WAS FASTINGP ERFORMED BY: [place] 9063870 [facility] [id number] Information: [id number] Lymphocytes #/vol (Bld) 1.2 {x10E3/uL} Normal 0.7-3.1 [facility] Work Phone: Comment on above: PATIENT WAS FASTINGP ERFORMED BY: [facility]6370 [facility] [id number] Information: [id number] Lymphocytes/100 WBC (Bld) 25 % Normal [facility] Work Phone: Comment on above: PATIENT WAS FASTINGP ERFORMED BY: [place] 9063870 [facility] [id number] Information: [id number] MCH Entitic mass (RBC) 29.8 pg Normal 26.6-33.0 Co [facility] Internal Medicine Work Phone: Comment on above: PATIENT WAS FASTINGP ERFORMED BY: [place] 9063870 [facility] [id number] Information: [id number] MCHC mass conc (RBC) 33.0 g/dL Normal 31.5-35.7 [facility] Internal Medicine Work Phone: Comment on above: PATIENT WAS FASTINGP ERFORMED BY: [place] 9063870 [facility] [id number] Information: [id number] MCV Entitic volume (RBC) 90 fL Normal 79-97 [facility] Work Phone: Comment on above: PATIENT WAS FASTINGP ERFORMED BY: [address] [id number] Information: [id number] Monocytes #/vol (Bld) 0.5 {x10E3/uL} Normal 0.1-0.9 [facility] Work Phone: Comment on above: PATIENT WAS FASTINGP ERFORMED BY: [address] [id number] Information: [id number] Monocytes/100 WBC (Bld) 10 % Normal [facility] Work Phone: Comment on above: PATIENT WAS FASTINGP ERFORMED BY: [address] [id number] Information: [id number] Neutrophils #/vol (Bld) 2.9 {x10E3/uL} Normal 1.4-7.0 [facility] Work Phone: Comment on above: PATIENT WAS FASTINGP ERFORMED BY: [address] [id number] Information: [id number] Neutrophils/100 WBC (Bld) 59 % Normal [facility] Work Phone: Comment on above: PATIENT WAS FASTINGP ERFORMED BY: [address] [id number] Information: [id number] Platelets #/vol (Bld) 196 {x10E3/uL} Normal 150-379 [facility] Work Phone: Comment on above: PATIENT WAS FASTINGP ERFORMED BY: ORTIZ [place]6[address] [facility] [id number] Information: [id number] RBC #/vol (Bld) 4.33 {x10E6/uL} Normal 3.77-5.28 [facility] Work Phone: Comment on above: PATIENT WAS FASTINGP ERFORMED BY: ORTIZ [facility] Hjtcrd9117 [facility] [id number] Information: [id number] WBC #/vol (Bld) 4.9 {x10E3/uL} Normal 3.4-10.8 [facility] Internal Medicine Work Phone: Comment on above: PATIENT WAS FASTINGP ERFORMED BY: ORTIZ [facility] Ffgaaa6323 [facility] [id number] Information: [id number] LIPID PANEL (46228)Ordered B y: Care Attendant on 10-19-2014 Cholesterol in HDL mass conc 47 mg/dL Normal [facility] Work Phone: Comment on above: According to ATP-III Guidelines, HDL-C >59 mg/dL is considered anegative risk factor for CHD. PATIENT WAS FASTINGP ERFORMED BY: ORTIZ [facility]Pers[facility] Ymuspt9550 [facility] [id number] Cholesterol in LDL mass conc 148 mg/dL Abnormal 0-99 [facility] Work Phone: Comment on above: PATIENT WAS FASTINGP ERFORMED BY: [facility] Bhvuef7601 [facility] [id number] Cholesterol in LDL/Cholesterol in HDL mass ratio 3.1 {ratio_units} Normal 0.0-3.2 [facility] Work Phone: Comment on above: LDL/HDL Ratio Men Wo men 1/2 Avg.Risk 1.0 1.5 Avg.Risk 3.6 3.2 2X Avg.Risk 6.2 5.0 3X Avg.Risk 8.0 6.1 PATIENT WAS FASTINGP ERFORMED BY: ORTIZ LabCoaustyn CroweKyghxe5219 Rodriguez Roadblin [place] [id number] Cholesterol in VLDL mass conc 36 mg/dL Normal 5-40 [facility] Work Phone: Comment on above: PATIENT WAS FASTINGP ERFORMED BY: ORTIZ LabAleksandr CrowePndfwr5[address] [facility] Hospitalblin [place] [id number] Cholesterol mass conc 231 mg/dL Abnormal 100-199 Com prehensive Internal Medicine Work Phone: Comment on above: PATIENT WAS FASTINGP ERFORMED BY: ORTIZ LabCoaustyn CroweMpupsq8550 [address] Roadblin [place] [id number] Triglyceride mass conc 179 mg/dL Abnormal 0-149 Co mprehensive [facility] Medicine Work Phone: Comment on above: PATIENT WAS FASTINGP ERFORMED BY: ORTIZ Crowelin[address] [facility] [id number] METABOLIC PANEL, COMPREHENSI VE ([id number])Ordered By: Care Attendant on 10-19-2014 Albumin mass conc 4.3 g/dL Normal 3.5-4.8 Compreh ensive Internal Medicine Work Phone: Comment on above: PATIENT WAS FASTINGP ERFORMED BY: ORTIZ LabAleksandr CroweWwnfft7458 Rodriguez [facility] [id number] Albumin/Globulin mass ratio 2.2 {ratio} Normal 1.1-2.5 [facility] Work Phone: Comment on above: PATIENT WAS FASTINGP ERFORMED BY: ORTIZ LabAleksandr CrowePgxtqg6905 [facility] [place] [id number] ALP enzyme act/vol 73 [iU]/L Normal 39-117 Compre [facility] Internal Medicine Work Phone: Comment on above: PATIENT WAS FASTINGP ERFORMED BY: ORTIZ LabCoaustyn Nbyzcv4397 Rodriguez [facility] [place] [id number] ALT enzyme act/vol 8 [iU]/L Normal 0-32 Compre [facility] Internal Medicine Work Phone: Comment on above: PATIENT WAS FASTINGP ERFORMED BY: ORTIZ LabAleksandr CroweHgszmy0979 [facility] [place] [id number] AST enzyme act/vol 15 [iU]/L Normal 0-40 [facility] Internal Medicine Work Phone: Comment on above: PATIENT WAS FASTINGP ERFORMED BY: ORTIZ [facility] Xlkupq2190 Rodriguez RoadDublin [place] [id number] Bilirubin mass conc 0.3 mg/dL Normal 0.0-1.2 [facility] Internal Medicine Work Phone: Comment on above: PATIENT WAS FASTINGP ERFORMED BY: CB [facility] Pbdbwb0026 Rodriguez Roadblin [place] [id number] Calcium mass conc 9.6 mg/dL Normal 8.7-10.3 [facility] Work Phone: Comment on above: PATIENT WAS FASTINGP ERFORMED BY: LabCo Fmqgzc1413 Rodriguez [facility] [place] [id number] Chloride molar conc 99 mmol/L Normal 97-108 Compr [facility] Internal Medicine Work Phone: Comment on above: PATIENT WAS FASTINGP ERFORMED BY: [facility] Zymolg2795 Rodriugez [facility] [place] [id number] CO2 molar conc 27 mmol/L Normal 18-29 [facility] Work Phone: Comment on above: PATIENT WAS FASTINGP ERFORMED BY: [facility] Bohltr7106 Rodriguez [facility] [place] [id number] Creatinine mass conc 0.91 mg/dL Normal 0.57-1.00 [facility] Internal Medicine Work Phone: Comment on above: PATIENT WAS FASTINGP ERFORMED BY: CB [facility] Fhwfun3682 Rodriguez RoadFormerly [facility] Carein [place] [id number] GFR/1.73 sq M predicted among blacks CKD-EPI vol rate/area (S/P/Bld) 71 mL/min/1.73 Normal [facility] Work Phone: Comment on above: PATIENT WAS FASTINGP ERFORMED BY: CB [facility] Kotqfr3129 Rodriguez RoadDuin [place] [id number] GFR/1.73 sq M predicted among non-blacks CKD-EPI vol rate/area (S/P/Bld) 62 mL/min/1.73 Normal Comprehensiv e Internal Medicine Work Phone: Comment on above: PATIENT WAS FASTINGP ERFORMED BY: ORTIZ [facility] Skavhp4632 Rodriguez RoadDublin [place] [id number] Globulin mass conc (S) 2.0 g/dL Normal 1.5-4.5 Co mprehensive Internal Medicine Work Phone: Comment on above: PATIENT WAS FASTINGP ERFORMED BY: ORTIZ [facility] Jyyylz6386 Rodriguez RoadDublin [place] [id number] Glucose mass conc 82 mg/dL Normal 65-99 Compreh ensive Internal Medicine Work Phone: Comment on above: PATIENT WAS FASTINGP ERFORMED BY: ORTIZ [facility] Uhdysh1128 Rodriguez RoadDublin [place] [id number] Potassium molar conc 4.6 mmol/L Normal 3.5-5.2 Comp rehensive Internal Medicine Work Phone: Comment on above: PATIENT WAS FASTINGP ERFORMED BY: ORTIZ [facility] Btzgdf4362 Rodriguez RoadDublin [place] [id number] Protein mass conc 6.3 g/dL Normal 6.0-8.5 Compreh ensive Internal Medicine Work Phone: Comment on above: PATIENT WAS FASTINGP ERFORMED BY: ORTIZ [facility] Zirhyx2192 Rodriguez RoadDublin [place] [id number] Sodium molar conc 141 mmol/L Normal 134-144 Compreh ensive Internal Medicine Work Phone: Comment on above: PATIENT WAS FASTINGP ERFORMED BY: CB [facility] Djlddl1860 Rodriguez RoadDublin [place] [id number] Urea nitrogen mass conc 11 mg/dL Normal 8-27 [facility] Work Phone: Comment on above: PATIENT WAS FASTINGP ERFORMED BY: ORTIZ [facility] Vvudsk0840 Rodriguez RoadDublin [place] [id number] Urea nitrogen/Creatinine mass ratio 12 mg/mg Normal 11-26 [facility] Work Phone: Comment on above: PATIENT WAS FASTINGP ERFORMED BY: CB [facility] Tbeghy6126 Rodriguez RoadDublin [place] [id number] MICROALBUMINOrdered By: Snapwiz em Rn Diabetes Educator on 10-19-2014 Albumin DL <= 20 mg/L mass conc (U) 10.7 ug/mL Normal 0.0-17.0 [facility] Work Phone: Comment on above: PATIENT WAS FASTINGP ERFORMED BY: CB [facility] Ifnlee1059 [address] RoadDublin [place] [id number] Albumin/Creatinine mass ratio (U) 8.1 {mg/g_creat} Normal 0.0-30.0 [facility] Work Phone: Comment on above: PATIENT WAS FASTINGP ERFORMED BY: CB [facility] Tskrrt3405 [address] RoadDublin [place] [id number] Creatinine mass conc (U) 132.3 mg/dL Normal 15.0-278.0 [facility] Work Phone: Comment on above: PATIENT WAS FASTINGP ERFORMED BY: ORTIZ [facility] Sunotr8815 [address] RoadDublin [place] [id number] TSH ([id number])Ordered By: Samantha Rn Diabetes Educator on 10-19-2014 Thyrotropin Qn 1.170 {uIU/mL} Normal 0.450-4.50 0 [facility] Work Phone: Comment on above: PATIENT WAS FASTINGP ERFORMED BY: CB [facility] Qlyebh2850 Rodriguez RoadDublin [place] [id number] URINALYSIS, W/ MICRO ([id number]) Ordered By: Care Attendant on 10-19-2014 Appearance Nom (U) Clear Normal Compre hensive Internal Medicine Work Phone: Comment on above: PATIENT WAS FASTINGP ERFORMED BY: CB [facility] Gyraap6290 [address] RoadDublin [place] [id number] Bilirubin Ql (U) Negative Normal Comprehe nsive Internal Medicine Work Phone: Comment on above: PATIENT WAS FASTINGP ERFORMED BY: CB [facility] Ssggax0696 Rodriguez RoadDublin [place] [id number] Color Nom (U) Yellow Normal Comprehensi ve Internal Medicine Work Phone: Comment on above: PATIENT WAS FASTINGP ERFORMED BY: ORTIZ Chester6370 [address] RoadDublin [place] [id number] Glucose Ql (U) Negative Normal Comprehens trupti Internal Medicine Work Phone: Comment on above: PATIENT WAS FASTINGP ERFORMED BY: ORTIZ Chester6370 [address] RoadDublin [place] [id number] Hemoglobin Ql (U) Negative Normal Compreh ensive Internal Medicine Work Phone: Comment on above: PATIENT WAS FASTINGP ERFORMED BY: ORTIZ Chester6[address] RoadDublin [place] [id number] Ketones Ql (U) Negative Normal Comprehens trupti Internal Medicine Work Phone: Comment on above: PATIENT WAS FASTINGP ERFORMED BY: ORTIZ Chester6[address] RoadDublin [place] [id number] Leukocyte esterase Test strip Ql (U) Negative Normal [facility] Work Phone: Comment on above: PATIENT WAS FASTINGP ERFORMED BY: ORTIZ Chester6[address] RoadDublin [place] [id number] Microscopic observation LM Nom (Urine sed) See below: Normal [facility] Work Phone: Comment on above: Microscopic was derrick cated and was performed. PATIENT WAS FASTINGP ERFORMED BY: ORTIZ Crowelin6370 [address] RoadDublin [place] [id number] Microscopic observation LM Nom (Urine sed) MICRON Normal [facility] Work Phone: Comment on above: Microscopic follows if indicated. PATIENT WAS FASTINGP ERFORMED BY: ORTIZ Crowelin6370 [address] RoadDublin [place] [id number] Nitrite Ql (U) Negative Normal Comprehens trupti Internal Medicine Work Phone: Comment on above: PATIENT WAS FASTINGP ERFORMED BY: ORTIZ Crowelin6370 [address] RoadDublin [place] [id number] pH (U) 7.0 [pH] Normal 5.0-7.5 [facility] Work Phone: Comment on above: PATIENT WAS FASTINGP ERFORMED BY: ORTIZ Crowelin6370 [address] RoadDublin [place] [id number] Protein Ql (U) Trace Normal Comprehens trupti Internal Medicine Work Phone: Comment on above: PATIENT WAS FASTINGP ERFORMED BY: ORTIZ LabCoaustyn Ykheff6012 [address] RoadDublin [place] [id number] Specific gravity Relative Density (U) 1.017 1 Normal 1.005-1.03 0 [facility] Work Phone: Comment on above: PATIENT WAS FASTINGP ERFORMED BY: ORTIZ Munguia Nfgcqs8768 [address] RoadDublin [place] [id number] Urobilinogen Test strip mass conc (U) 0.2 mg/dL Normal 0.0-1.9 Comprehensiv e Internal Medicine Work Phone: Comment on above: PATIENT WAS FASTINGP ERFORMED BY: ORTIZ Hourp Jazwoq8189 [address] RoadDublin [place] [id number] Vitamin D Hydroxy (98336)Ord ered By: Care Attendant on 10-19-2014 25-Hydroxyvitamin D2+25-Hydroxyvitamin D3 mass conc 39.6 ng/mL Normal 30.0-100.0 [facility] Work Phone: Comment on above: Vitamin D deficiency has been defined by the [place] of[place]icine and an Endocrine Society practice guideline as alevel of serum 25-OH vitamin D less than 20 ng/mL (1,2).The Endocrine Society went on to further define vitamin Dinsufficiency as a level between 21 and 29 ng/mL (2).1. IOM ([place] of Medicine). 2010. Dietary reference intakes for calcium and D. [place]: The National Academies Press.2. Allie MF, Emile NC, Natalie POOLE, et al. Evaluation, treatment, and prevention of vitamin D deficiency: an Endocrine Society clinical practice guideline. JCEM. 2010; 96(7):1911-30. PATIENT WAS FASTINGP ERFORMED BY: ORTIZ [facility] Oteagy3307 Rodriguez RoadDublin [place] [id number] FECAL OCCULT HGB ASSAY- tube s sent home (05337)Ordered By: Cady Huber on 10-12-2014 Hemoglobin.gastrointes tinal Ql (St) Negative Normal [facility] Work Phone: Office Visit: [facility] 10-10-19 15 cardiac risk group C Invalid Interpretation Code [employer] Work Phone: General cardiovascular disease 10Y risk [#] Savery.D'Agostino N/A Invalid Interpretation Code [employer] Work Phone: Replaced Document: Escobar ROMERO Observationson 10-10-2014 electrocardiogram interpretation Sinus Bradycardia WITHIN NORMAL LIMITS Invalid Interpretation Code [employer] Work Phone: GE use only - for [employer] import when terms are not otherwise specified 438 ms Invalid Interpretation Code [employer] Work Phone: P wave axis, electrocardiogram 33 deg Invalid Interpretation Code [facility] Work Phone: TX interval, electrocardiogram 164 ms Invalid Interpretation Code [facility] Work Phone: Pulse (Heart Rate) 55 /min Invalid Interpretation Code [facility] Work Phone: QRS axis, electrocardiogram 7 deg Invalid Interpretation Code [employer] Work Phone: QRS duration, electrocardiogram 90 ms Invalid Interpretation Code [facility] Work Phone: QT interval, electrocardiogram new path ms Invalid Interpretation Code [facility] Work Phone: T wave axis, electrocardiogram 41 deg Invalid Interpretation Code [facility] Work Phone: CBC WITH MANUAL DIFF ([id number]) Ordered By: Care Attendant on 06-26-2014 Basophils #/vol (Bld) 0.0 {x10E3/uL} Normal 0.0-0.2 [facility] Work Phone: Comment on above: PATIENT WAS FASTINGP ERFORMED BY: ORTIZ [facility] Yqhtdq0445 [facility] [id number] Information: [id number] Basophils/100 WBC (Bld) 1 % Normal [facility] Work Phone: Comment on above: PATIENT WAS FASTINGP ERFORMED BY: [place] 9063870 [facility] [id number] Information: [id number] Eosinophils #/vol (Bld) 0.2 {x10E3/uL} Normal 0.0-0.4 [facility] Work Phone: Comment on above: PATIENT WAS FASTINGP ERFORMED BY: [address] [id number] Information: [id number] Eosinophils/100 WBC (Bld) 3 % Normal [facility] Work Phone: Comment on above: PATIENT WAS FASTINGP ERFORMED BY: [address] [id number] Information: [id number] Erythrocyte distribution width Ratio (RBC) 13.4 % Normal 12.3-15.4 [facility] Work Phone: Comment on above: PATIENT WAS FASTINGP ERFORMED BY: [address] [id number] Information: [id number] Hematocrit Volume Fraction (Bld) 40.5 % Normal 34.0-46.6 [facility] Work Phone: Comment on above: PATIENT WAS FASTINGP ERFORMED BY: [address] [id number] Information: [id number] Hemoglobin mass conc (Bld) 13.1 g/dL Normal 11.1-15.9 [facility] Work Phone: Comment on above: PATIENT WAS FASTINGP ERFORMED BY: [place] 9063870 [facility] [id number] Information: [id number] Immature granulocytes #/vol (Bld) 0.0 {x10E3/uL} Normal 0.0-0.1 [facility] Work Phone: Comment on above: PATIENT WAS FASTINGP ERFORMED BY: [place] 9063870 [facility] [id number] Information: [id number] Immature granulocytes/100 WBC (Bld) 0 % Normal [facility] Work Phone: Comment on above: PATIENT WAS FASTINGP ERFORMED BY: [address] [id number] Information: [id number] Lymphocytes #/vol (Bld) 1.1 {x10E3/uL} Normal 0.7-3.1 [facility] Work Phone: Comment on above: PATIENT WAS FASTINGP ERFORMED BY: [address] [id number] Information: [id number] Lymphocytes/100 WBC (Bld) 21 % Normal [facility] Work Phone: Comment on above: PATIENT WAS FASTINGP ERFORMED BY: [address] [id number] Information: [id number] MCH Entitic mass (RBC) 29.4 pg Normal 26.6-33.0 [facility] Internal Medicine Work Phone: Comment on above: PATIENT WAS FASTINGP ERFORMED BY: [address] [id number] Information: [id number] MCHC mass conc (RBC) 32.3 g/dL Normal 31.5-35.7 [facility] Internal Medicine Work Phone: Comment on above: PATIENT WAS FASTINGP ERFORMED BY: [place] 9063870 [facility] [id number] Information: [id number] MCV Entitic volume (RBC) 91 fL Normal 79-97 [facility] Work Phone: Comment on above: PATIENT WAS FASTINGP ERFORMED BY: [address] [id number] Information: [id number] Monocytes #/vol (Bld) 0.5 {x10E3/uL} Normal 0.1-0.9 [facility] Work Phone: Comment on above: PATIENT WAS FASTINGP ERFORMED BY: [facility]6370 [facility] [id number] Information: [id number] Monocytes/100 WBC (Bld) 10 % Normal [facility] Work Phone: Comment on above: PATIENT WAS FASTINGP ERFORMED BY: [place] 9063870 [facility] [id number] Information: [id number] Neutrophils #/vol (Bld) 3.7 {x10E3/uL} Normal 1.4-7.0 [facility] Work Phone: Comment on above: PATIENT WAS FASTINGP ERFORMED BY: [facility]6370 [facility] [id number] Information: [id number] Neutrophils/100 WBC (Bld) 65 % Normal [facility] Work Phone: Comment on above: PATIENT WAS FASTINGP ERFORMED BY: [facility]6370 [facility] [id number] Information: [id number] Platelets #/vol (Bld) 198 {x10E3/uL} Normal 150-379 [facility] Work Phone: Comment on above: PATIENT WAS FASTINGP ERFORMED BY: LabCoKindred Hospital at MorrisWxohvm8601 [facility] [id number] Information: [id number] RBC #/vol (Bld) 4.45 {x10E6/uL} Normal 3.77-5.28 [facility] Internal Medicine Work Phone: Comment on above: PATIENT WAS FASTINGP ERFORMED BY: [facility]Asc[facility]6370 [facility] [id number] Information: [id number] WBC #/vol (Bld) 5.6 {x10E3/uL} Normal 3.4-10.8 [facility] ehensive Internal Medicine Work Phone: Comment on above: PATIENT WAS FASTINGP ERFORMED BY: ORTIZ [facility] NetworksPershing [facility] Hospital Afkgrp7190 [facility] [id number] Information: [id number] LIPID PANEL (14526)Ordered B y: Care Attendant on 06-26-2014 Cholesterol in HDL mass conc 46 mg/dL Normal [facility] Work Phone: Comment on above: According to ATP-III Guidelines, HDL-C >59 mg/dL is considered anegative risk factor for CHD. PATIENT WAS FASTINGP ERFORMED BY: ORTIZ [employer] Vvbxvq1092 Rodriguez SocialBuyAtrium Health Cleveland [id number] Cholesterol in LDL mass conc 130 mg/dL Abnormal 0-99 [facility] Work Phone: Comment on above: PATIENT WAS FASTINGP ERFORMED BY: ORTIZ Booking AngelKindred Hospital at MorrisTsbnqm[address] [place] [address] [id number] Cholesterol in LDL/Cholesterol in HDL mass ratio 2.8 {ratio_units} Normal 0.0-3.2 [facility] Work Phone: Comment on above: LDL/HDL Ratio Men Wo men 1/2 Avg.Risk 1.0 1.5 Avg.Risk 3.6 3.2 2X Avg.Risk 6.2 5.0 3X Avg.Risk 8.0 6.1 PATIENT WAS FASTINGP ERFORMED BY: ORTIZ Book[employer] AngelRaymond Ville [id number] [facility] [id number] Cholesterol in VLDL mass conc 41 mg/dL Abnormal 5-40 [facility] Work Phone: Comment on above: PATIENT WAS FASTINGP ERFORMED BY: ORTIZ Booking AngelKindred Hospital at MorrisZmczit8474 [facility] [id number] Cholesterol mass conc 217 mg/dL Abnormal 100-199 Com prehensive Internal Medicine Work Phone: Comment on above: PATIENT WAS FASTINGP ERFORMED BY: ORTIZ Edgewater NetworksAscension Borgess Alle[facility] Hospital[address] [place], [place] [address]ox [facility] [id number] Triglyceride mass conc 203 mg/dL Abnormal 0-149 Co [facility] Internal Medicine Work Phone: Comment on above: PATIENT WAS FASTINGP ERFORMED BY: ORTIZ Nilda Crowelin6370 [address] [facility] [id number] METABOLIC PANEL, COMPREHENSI VE ([id number])Ordered By: Care Attendant on 06-26-2014 Albumin mass conc 4.0 g/dL Normal 3.5-4.8 Compreh [facility] Internal Medicine Work Phone: Comment on above: PATIENT WAS FASTINGP ERFORMED BY: ORTIZ [facility] Txcanp9964 [address] [facility] [id number] Albumin/Globulin mass ratio 1.7 {ratio} Normal 1.1-2.5 [facility] Internal Medicine Work Phone: Comment on above: PATIENT WAS FASTINGP ERFORMED BY: ORTIZ LabPershing Memorial Hospital Vqsepn5693 [facility] [id number] ALP enzyme act/vol 80 [iU]/L Normal 39-117 [facility] Internal Medicine Work Phone: Comment on above: PATIENT WAS FASTINGP ERFORMED BY: ORTIZ [facility] Wvyhzl1233 [facility] [id number] ALT enzyme act/vol 8 [iU]/L Normal 0-32 [facility] Internal Medicine Work Phone: Comment on above: PATIENT WAS FASTINGP ERFORMED BY: ORTIZ LabPershing Memorial Hospital Mpubbb1645 [address] [facility] [id number] AST enzyme act/vol 10 [iU]/L Normal 0-40 [facility] Internal Medicine Work Phone: Comment on above: PATIENT WAS FASTINGP ERFORMED BY: ORTIZ [facility] Pphfpg5708 [address] [facility] [id number] Bilirubin mass conc 0.3 mg/dL Normal 0.0-1.2 [facility] Internal Medicine Work Phone: Comment on above: PATIENT WAS FASTINGP ERFORMED BY: ORTIZ [facility] Urosty7315 [facility] [id number] Calcium mass conc 9.4 mg/dL Normal 8.6-10.2 Compreh ensive Internal Medicine Work Phone: Comment on above: PATIENT WAS FASTINGP ERFORMED BY: ORTIZ MeenaAleksandr Pmotnq8113 [address] [facility] [place] [id number] Chloride molar conc 100 mmol/L Normal 97-108 Compr ehensive Internal Medicine Work Phone: Comment on above: PATIENT WAS FASTINGP ERFORMED BY: ORTIZ Crowelin6370 [address] [facility] [id number] CO2 molar conc 26 mmol/L Normal 18-29 Comprehens trupti Internal Medicine Work Phone: Comment on above: PATIENT WAS FASTINGP ERFORMED BY: ORTIZ Crowelin6370 [facility] [id number] Creatinine mass conc 0.80 mg/dL Normal 0.57-1.00 Comp rehensive Internal Medicine Work Phone: Comment on above: PATIENT WAS FASTINGP ERFORMED BY: ORTIZ Crowelin6370 [facility] [id number] GFR/1.73 sq M predicted among blacks CKD-EPI vol rate/area (S/P/Bld) 83 mL/min/1.73 Normal [facility] Work Phone: Comment on above: PATIENT WAS FASTINGP ERFORMED BY: ORTIZ LabAleksandr CrowePjtptg3098 [facility] [id number] GFR/1.73 sq M predicted among non-blacks CKD-EPI vol rate/area (S/P/Bld) 72 mL/min/1.73 Normal Comprehensiv e Internal Medicine Work Phone: Comment on above: PATIENT WAS FASTINGP ERFORMED BY: ORTIZ LabCoaustyn CroweYpwesr6447 [address] [facility] [id number] Globulin mass conc (S) 2.3 g/dL Normal 1.5-4.5 Co [facility]ensive Internal Medicine Work Phone: Comment on above: PATIENT WAS FASTINGP ERFORMED BY: ORTIZ LabCoaustyn CroweBhdiab8871 [facility] [id number] Glucose mass conc 90 mg/dL Normal 65-99 Compreh ensive Internal Medicine Work Phone: Comment on above: PATIENT WAS FASTINGP ERFORMED BY: ORTIZ Ameyaaustyn CroweCxmqdg8785 [address] [facility] [id number] Potassium molar conc 4.0 mmol/L Normal 3.5-5.2 Comp rehensive Internal Medicine Work Phone: Comment on above: PATIENT WAS FASTINGP ERFORMED BY: ORTIZ LabPershing [facility] Hospital Irhpka1057 [facility] [id number] Protein mass conc 6.3 g/dL Normal 6.0-8.5 Compreh ensive Internal Medicine Work Phone: Comment on above: PATIENT WAS FASTINGP ERFORMED BY: ORTIZ [facility] Valleyaustyn CroweAfxqzv0875 [facility] [id number] Sodium molar conc 142 mmol/L Normal 134-144 Compreh ensive Internal Medicine Work Phone: Comment on above: PATIENT WAS FASTINGP ERFORMED BY: ORTIZ [facility] Pippop9194 [facility] [id number] Urea nitrogen mass conc 10 mg/dL Normal 8-27 [facility] Work Phone: Comment on above: PATIENT WAS FASTINGP ERFORMED BY: ORTIZ RobledoPershing Memorial Hospital Vaothk2647 [facility] [id number] Urea nitrogen/Creatinine mass ratio 13 mg/mg Normal 11-26 [facility] Work Phone: Comment on above: PATIENT WAS FASTINGP ERFORMED BY: ORTIZ LabAsc[facility]6370 [facility] [id number] MICROALBUMINOrdered By: Syst em Rn Diabetes Educator on 06-26-2014 Albumin DL <= 20 mg/L mass conc (U) 12.3 ug/mL Normal 0.0-17.0 [facility] Work Phone: Comment on above: PATIENT WAS FASTINGP ERFORMED BY: ORTIZ LabAsc[facility]6370 [facility] [id number] Albumin/Creatinine mass ratio (U) 7.0 {mg/g_creat} Normal 0.0-30.0 [facility] Work Phone: Comment on above: PATIENT WAS FASTINGP ERFORMED BY: ORTIZ LabAleksandr CroweWvylmx7922 Rodriguez RoadDublin [place] [id number] Creatinine mass conc (U) 176.5 mg/dL Normal 15.0-278.0 [facility] Work Phone: Comment on above: PATIENT WAS FASTINGP ERFORMED BY: ORTIZ [facility] Mjnsvo3470 [address] Roadblin [place] [id number] TSH ([id number])Ordered By: Snapwize m Rn Diabetes Educator on 06-26-2014 Thyrotropin Qn 1.220 {uIU/mL} Normal 0.450-4.50 0 [facility] Work Phone: Comment on above: PATIENT WAS FASTINGP ERFORMED BY: ORTIZ LabAleksandr CroweRxnuie7614 [address] Roadbl[address] [place] [id number] URINALYSIS, W/ MICRO ([id number]) Ordered By: Care Attendant on 06-26-2014 Appearance Nom (U) Clear Normal Compre hensive Internal Medicine Work Phone: Comment on above: PATIENT WAS FASTINGP ERFORMED BY: ORTIZ LabAleksandr CroweOfoifv7683 [address] RoadDublin [place] [id number] Bilirubin Ql (U) Negative Normal Comprehe nsive Internal Medicine Work Phone: Comment on above: PATIENT WAS FASTINGP ERFORMED BY: ORTIZ LabAleksandr CroweBgwivq7502 Rodriguez RoadDublin [place] [id number] Color Nom (U) Yellow Normal Comprehensi ve Internal Medicine Work Phone: Comment on above: PATIENT WAS FASTINGP ERFORMED BY: ORTIZ [facility] Uvkuyg7834 Rodriguez RoadDublin [place] [id number] Glucose Ql (U) Negative Normal Comprehens trupti Internal Medicine Work Phone: Comment on above: PATIENT WAS FASTINGP ERFORMED BY: ORTIZ [facility] Tzbvpw2076 [address] RoadDublin [place] [id number] Hemoglobin Ql (U) Negative Normal Compreh ensive Internal Medicine Work Phone: Comment on above: PATIENT WAS FASTINGP ERFORMED BY: ORTIZ [facility] Ivoxlq5873 [address] RoadDublin [place] [id number] Ketones Ql (U) Negative Normal Comprehens trupti Internal Medicine Work Phone: Comment on above: PATIENT WAS FASTINGP ERFORMED BY: ORTIZ [facility] Xnzeug5885 [address] RoadDublin [place] [id number] Leukocyte esterase Test strip Ql (U) Negative Normal [facility] Work Phone: Comment on above: PATIENT WAS FASTINGP ERFORMED BY: ORTIZ [facility] Gmanqa8618 [address] RoadDublin [place] [id number] Microscopic observation LM Nom (Urine sed) See below: Normal [facility] Work Phone: Comment on above: Microscopic was derrick cated and was performed. PATIENT WAS FASTINGP ERFORMED BY: ORTIZ [facility] Ajswpr4181 Rodriguez RoadDublin [place] [id number] Microscopic observation LM Nom (Urine sed) MICRON Normal [facility] Work Phone: Comment on above: Microscopic follows if indicated. PATIENT WAS FASTINGP ERFORMED BY: ORTIZ [facility] Oteuht0662 [address] RoadDublin [place] [id number] Nitrite Ql (U) Negative Normal Comprehens trupti Internal Medicine Work Phone: Comment on above: PATIENT WAS FASTINGP ERFORMED BY: ORTIZ [facility] Jzfatj2066 [address] RoadDublin [place] [id number] pH (U) 5.5 [pH] Normal 5.0-7.5 [facility] Work Phone: Comment on above: PATIENT WAS FASTINGP ERFORMED BY: CB [facility] Ewiuem3698 [address] RoadDublin [place] [id number] Protein Ql (U) Negative Normal Comprehens trupti Internal Medicine Work Phone: Comment on above: PATIENT WAS FASTINGP ERFORMED BY: ORTIZ [facility] Pijmsw8064 [address] RoadDublin [place] [id number] Specific gravity Relative Density (U) 1.020 1 Normal 1.005-1.03 0 [facility] Work Phone: Comment on above: PATIENT WAS FASTINGP ERFORMED BY: ORTIZ Booking Angel Xkuhbd6478 [facility] [id number] Urobilinogen Test strip mass conc (U) 0.2 mg/dL Normal 0.0-1.9 Comprehensiv e Internal Medicine Work Phone: Comment on above: PATIENT WAS FASTINGP ERFORMED BY: ORTIZ Booking Angel Upucpu5992 [address] SocialBuyAtrium Health [facility] [id number] Vitamin D Hydroxy (93531)Ord ered By: Care Attendant on 06-26-2014 25-Hydroxyvitamin D2+25-Hydroxyvitamin D3 mass conc 38.9 ng/mL Normal 30.0-100.0 [facility] Work Phone: Comment on above: Vitamin D deficiency has been defined by the [place] of[place] and an Endocrine Society practice guideline as alevel of serum 25-OH vitamin D less than 20 ng/mL (1,2).The Endocrine Society went on to further define vitamin Dinsufficiency as a level between 21 and 29 ng/mL (2).1. IOM ([place] of Medicine). 2010. Dietary reference intakes for calcium and D. [place]: The National Academies Press.2. Allie MF, Emile NC, Natalie POOLE, et al. Evaluation, treatment, and prevention of vitamin D deficiency: an Endocrine Society clinical practice guideline. JCEM. 2010; 96(7):1911-30. PATIENT WAS FASTINGP ERFORMED BY: [employer] TicTacTiBetsy Johnson [facility] [id number] URINE IB[place] (28402)Ordered By: Care Attendant on 04-17-2014 Bacteria identified Cx Nom (U) Escherichia coli Abnormal [facility] Work Phone: Comment on above: Greater than 100,000 colony forming units per mL PATIENT NOT FASTINGP ERFORMED BY: ORTIZ Booking Angel Wtuaqr0228 [facility] [id number] Information: [id number] Bacteria identified Cx Nom (U) Final report Abnormal [facility] Work Phone: Comment on above: PATIENT NOT FASTINGP ERFORMED BY: [facility] Osuwpb1494 Rodriguez RoadDublin [place] [id number] Information: [id number] Other Antibiotic [facility] prehensive Internal Medicine Work Phone: Comment on above: S = Susceptibl e; I = Intermediate; R = Resistant P = Positive; N = Negative MICS are expressed in micrograms per mL Antibiotic RSLT#1 RSLT#2 RSLT#3 RSLT#4Amoxicillin/Clavulanic Acid SAmpicillin SCefepime SCeftriaxone SCefuroxime SCephalothin SCiprofloxacin SErtapenem SGentamicin SImipenem SLevofloxacin SNitrofurantoin SPiperacillin STetracycline STobramycin STrimethoprim/Sulfa S PATIENT NOT FASTINGP ERFORMED BY: [facility] Evkbmq8002 Rodriguez RoadDublin [place] [id number] Information: [id number] Urinalysis, Office (44509)Or dered By: Alyson Dixon on 04-17-2014 Bilirubin [...] Medicine Work Phone: CBC WITH MANUAL DIFF (22393) Ordered By: Care Attendant on 04-06-2014 Basophils #/vol (Bld) 0.0 {x10E3/uL} Normal 0.0-0.2 [facility] Work Phone: Comment on above: PATIENT NOT FASTINGP ERFORMED BY: CB [facility] Sdwykj8701 Rodriguez RoadDublin [place] [id number] Information: [id number] Basophils/100 WBC (Bld) 0 % Normal 0-3 [facility] Work Phone: Comment on above: PATIENT NOT FASTINGP ERFORMED BY: CB [facility] Hzxdvv1676 Rodriguez RoadDublin [place] [id number] Information: 114646,[id number] Eosinophils #/vol (Bld) 0.1 {x10E3/uL} Normal 0.0-0.4 [facility] Work Phone: Comment on above: PATIENT NOT FASTINGP ERFORMED BY: CB [facility] Tedoot3775 Rodriguez RoadDublin [place] [id number] Information: 002126,[id number] Eosinophils/100 WBC (Bld) 2 % Normal 0-5 [facility] Work Phone: Comment on above: PATIENT NOT FASTINGP ERFORMED BY: CB [facility] Ymwesd3919 Rodriguez Roadblin [place] [id number] Information: [id number] Erythrocyte distribution width Ratio (RBC) 13.5 % Normal 12.3-15.4 [facility] Work Phone: Comment on above: PATIENT NOT FASTINGP ERFORMED BY: CB [facility] Znenvp7510 Rodriguez RoadDublin [place] [id number] Information: [id number],[id number] Hematocrit Volume Fraction (Bld) 38.1 % Normal 34.0-46.6 [facility] Work Phone: Comment on above: PATIENT NOT FASTINGP ERFORMED BY: CB [facility] Uaztse6628 Rodriguez RoadDublin [place] [id number] Information: [id number] Hemoglobin mass conc (Bld) 12.8 g/dL Normal 11.1-15.9 [facility] Work Phone: Comment on above: PATIENT NOT FASTINGP ERFORMED BY: ORTIZ Hou Otaroh5076 [facility] [id number] Information: [id number] Immature granulocytes #/vol (Bld) 0.0 {x10E3/uL} Normal 0.0-0.1 [facility] Work Phone: Comment on above: PATIENT NOT FASTINGP ERFORMED BY: [address] [id number] Information: [id number] Immature granulocytes/100 WBC (Bld) 0 % Normal 0-2 [facility] Work Phone: Comment on above: PATIENT NOT FASTINGP ERFORMED BY: [address] [id number] Information: [id number],[id number] Lymphocytes #/vol (Bld) 1.5 {x10E3/uL} Normal 0.7-3.1 [facility] Work Phone: Comment on above: PATIENT NOT FASTINGP ERFORMED BY: Meena[address] [id number] Information: [id number],Q80818 Lymphocytes/100 WBC (Bld) 26 % Normal 14-46 [facility] Work Phone: Comment on above: PATIENT NOT FASTINGP ERFORMED BY: [address] [id number] Information: [id number],[id number] MCH Entitic mass (RBC) 31.1 pg Normal 26.6-33.0 [facility] Internal Medicine Work Phone: Comment on above: PATIENT NOT FASTINGP ERFORMED BY: [address] [id number] Information: [id number],[id number] MCHC mass conc (RBC) 33.6 g/dL Normal 31.5-35.7 Comp [facility] Internal Medicine Work Phone: Comment on above: PATIENT NOT FASTINGP ERFORMED BY: ORTIZ Chester6370 [facility] [id number] Information: 120777,[id number] MCV Entitic volume (RBC) 93 fL Normal 79-97 [facility] Work Phone: Comment on above: PATIENT NOT FASTINGP ERFORMED BY: ORTIZ Hou Vnlnvo[address] [id number] Information: [id number],[id number] Monocytes #/vol (Bld) 0.5 {x10E3/uL} Normal 0.1-0.9 [facility] Work Phone: Comment on above: PATIENT NOT FASTINGP ERFORMED BY: [address] [id number] Information: [id number] Monocytes/100 WBC (Bld) 9 % Normal 4-12 [facility] Work Phone: Comment on above: PATIENT NOT FASTINGP ERFORMED BY: ORTIZ Hou Dhpiep886[address] [id number] Information: 570643,[id number] Neutrophils #/vol (Bld) 3.5 {x10E3/uL} Normal 1.4-7.0 [facility] Work Phone: Comment on above: PATIENT NOT FASTINGP ERFORMED BY: ORTIZ Robledo[address] [id number] Information: 740856,[id number] Neutrophils/100 WBC (Bld) 63 % Normal 40-74 [facility] Work Phone: Comment on above: PATIENT NOT FASTINGP ERFORMED BY: ORTIZ [address] [id number] Information: [id number] Platelets #/vol (Bld) 193 {x10E3/uL} Normal 150-379 [facility] Work Phone: Comment on above: PATIENT NOT FASTINGP ERFORMED BY: CB [facility] Xlaber5956 [address] [facility] Hospitalbl[facility] [place] [id number] Information: [id number] RBC #/vol (Bld) 4.12 {x10E6/uL} Normal 3.77-5.28 [facility] Work Phone: Comment on above: PATIENT NOT FASTINGP ERFORMED BY: CB [facility] Yqwwga2255 [address] [facility]in [place] [id number] Information: [id number] WBC #/vol (Bld) 5.6 {x10E3/uL} Normal 3.4-10.8 [facility] Internal Medicine Work Phone: Comment on above: PATIENT NOT FASTINGP ERFORMED BY: CB [facility] Jkzsek5523 [address] [facility] [id number] Information: [id number] LIPID PANEL (35263)Ordered B y: Care Attendant on 04-06-2014 Cholesterol in HDL mass conc 54 mg/dL Normal [facility] Work Phone: Comment on above: According to ATP-III Guidelines, HDL-C >59 mg/dL is considered anegative risk factor for CHD. PATIENT NOT FASTINGP ERFORMED BY: CB [facility] Oooomi9642 [address] [facility]in [place] [id number] Cholesterol in LDL mass conc 63 mg/dL Normal 0-99 [facility] Work Phone: Comment on above: PATIENT NOT FASTINGP ERFORMED BY: CB [facility] Bzijbs9825 [address] [facility]in [place] [id number] Cholesterol in LDL/Cholesterol in HDL mass ratio 1.2 {ratio_units} Normal 0.0-3.2 [facility] Work Phone: Comment on above: PATIENT NOT FASTINGP ERFORMED BY: CB [facility] Anphma8133 [address] [facility]in [place] [id number] Cholesterol in VLDL mass conc 41 mg/dL Abnormal 5-40 [facility] Work Phone: Comment on above: PATIENT NOT FASTINGP ERFORMED BY: ORTIZ [facility] Awimwu6292 [address] [facility] [id number] Cholesterol mass conc 158 mg/dL Normal 100-199 Com prehensive Internal Medicine Work Phone: Comment on above: PATIENT NOT FASTINGP ERFORMED BY: ORTIZ LabCoaustyn CroweWplfzt0770 [address] [facility] [id number] Triglyceride mass conc 206 mg/dL Abnormal 0-149 Co mprehensive Internal Medicine Work Phone: Comment on above: PATIENT NOT FASTINGP ERFORMED BY: ORTIZ [facility] Pzekef1140 [address] [facility] [id number] METABOLIC PANEL, COMPREHENSI VE (44655)Ordered By: Care Attendant on 04-06-2014 Albumin mass conc 4.3 g/dL Normal 3.5-4.8 Compreh [facility] Internal Medicine Work Phone: Comment on above: PATIENT NOT FASTINGP ERFORMED BY: ORTIZ LabCoaustyn CrowePiqmed5684 [facility] [id number] Albumin/Globulin mass ratio 2.2 {ratio} Normal 1.1-2.5 [facility] Work Phone: Comment on above: PATIENT NOT FASTINGP ERFORMED BY: ORTIZ LabCoaustyn CroweRclabz8376 [facility] [id number] ALP enzyme act/vol 87 [iU]/L Normal 39-117 [facility] Internal [facility] Work Phone: Comment on above: PATIENT NOT FASTINGP ERFORMED BY: ORTIZ [facility] Reurnh9241 [facility] [id number] ALT enzyme act/vol 14 [iU]/L Normal 0-32 Compre [facility] Internal Medicine Work Phone: Comment on above: PATIENT NOT FASTINGP ERFORMED BY: ORTIZ [facility] Evdnbm6205 [address] [facility] [id number] AST enzyme act/vol 18 [iU]/L Normal 0-40 [facility] Internal Medicine Work Phone: Comment on above: PATIENT NOT FASTINGP ERFORMED BY: ORTIZ [facility] Qfjmxn0033 [address] RoadDublin [place] [id number] Bilirubin mass conc 0.3 mg/dL Normal 0.0-1.2 Compr ehensive Internal Medicine Work Phone: Comment on above: PATIENT NOT FASTINGP ERFORMED BY: ORTIZ [facility] Auuwyd4704 [address] RoadDublin [place] [id number] Calcium mass conc 10.0 mg/dL Normal 8.6-10.2 Compreh ensive Internal Medicine Work Phone: Comment on above: PATIENT NOT FASTINGP ERFORMED BY: ORTIZ [facility] Kjwjhx8197 [address] RoadDublin [place] [id number] Chloride molar conc 101 mmol/L Normal 97-108 Compr ehensive Internal Medicine Work Phone: Comment on above: PATIENT NOT FASTINGP ERFORMED BY: ORTIZ [facility] Sfhrdh8132 [address] RoadDublin [place] [id number] CO2 molar conc 28 mmol/L Normal 18-29 Comprehens trupti Internal Medicine Work Phone: Comment on above: PATIENT NOT FASTINGP ERFORMED BY: ORTIZ [facility] Dobqkf6000 [address] RoadDublin [place] [id number] Creatinine mass conc 0.73 mg/dL Normal 0.57-1.00 Comp [facility]eren[facility]ive Internal [facility] Work Phone: Comment on above: PATIENT NOT FASTINGP ERFORMED BY: ORTIZ [facility] Jwumrv2194 [address] RoadDublin [place] [id number] GFR/1.73 sq M predicted among blacks CKD-EPI vol rate/area (S/P/Bld) 94 mL/min/1.73 Normal [facility] Medicine Work Phone: Comment on above: PATIENT NOT FASTINGP ERFORMED BY: CB [facility] Saxjzt9624 [address] RoadDublin [place] [id number] GFR/1.73 sq M predicted among non-blacks CKD-EPI vol rate/area (S/P/Bld) 81 mL/min/1.73 Normal Comprehensiv e Internal Medicine Work Phone: Comment on above: PATIENT NOT FASTINGP ERFORMED BY: ORTIZ [facility] Uiyrye8182 [address] RoadDublin [place] [id number] Globulin mass conc (S) 2.0 g/dL Normal 1.5-4.5 Co [facility] Internal [facility] Work Phone: Comment on above: PATIENT NOT FASTINGP ERFORMED BY: ORTIZ [facility] Kmnxoj7576 [address] RoadDublin [place] [id number] Glucose mass conc 87 mg/dL Normal 65-99 Compreh ensive Internal Medicine Work Phone: Comment on above: PATIENT NOT FASTINGP ERFORMED BY: ORTIZ [facility] Bqfvhw2072 [address] RoadDublin [place] [id number] Potassium molar conc 5.0 mmol/L Normal 3.5-5.2 Comp [facility] centerensive Internal Medicine Work Phone: Comment on above: PATIENT NOT FASTINGP ERFORMED BY: ORTIZ [facility] Rzmiww9015 [address] RoadDublin [place] [id number] Protein mass conc 6.3 g/dL Normal 6.0-8.5 Compreh ensive Internal Medicine Work Phone: Comment on above: PATIENT NOT FASTINGP ERFORMED BY: ORTIZ [facility] Ejflid8227 [address] RoadDublin [place] [id number] Sodium molar conc 142 mmol/L Normal 134-144 Compreh ensive Internal Medicine Work Phone: Comment on above: PATIENT NOT FASTINGP ERFORMED BY: ORTIZ [facility] Tlbnlt1954 [address] RoadDublin [place] [id number] Urea nitrogen mass conc 12 mg/dL Normal 8-27 [facility] Work Phone: Comment on above: PATIENT NOT FASTINGP ERFORMED BY: CB [facility] Rhzxcw0978 Rodriguez RoadDublin [place] [id number] Urea nitrogen/Creatinine mass ratio 16 mg/mg Normal 11-26 [facility] Work Phone: Comment on above: PATIENT NOT FASTINGP ERFORMED BY: ORTIZ [facility] Rlnzit9565 Rodriguez RoadDublin [place] [id number] TSH (41011)Ordered By: Samantha Montelongo on 04-06-2014 Thyrotropin Qn 0.748 {uIU/mL} Normal 0.450-4.50 0 [facility] Work Phone: Comment on above: PATIENT NOT FASTINGP ERFORMED BY: ORTIZ Booking Angelaustyn ChesterSwqjlb7691 HelloWalletAtrium Health Cleveland [id number] Vitamin D Hydroxy (97381)Ord ered By: Care Attendant on 04-06-2014 25-Hydroxyvitamin D2+25-Hydroxyvitamin D3 mass conc 29.5 ng/mL Abnormal 30.0-100.0 [facility] Work Phone: Comment on above: Vitamin D deficiency has been defined by the [place] of[place]icine and an Endocrine Society practice guideline as alevel of serum 25-OH vitamin D less than 20 ng/mL (1,2).The Endocrine Society went on to further define vitamin Dinsufficiency as a level between 21 and 29 ng/mL (2).1. IOM ([place] of [employer]). 2010. Dietary reference intakes for calcium and D. [place]: The National Academies Press.2. Allie MF, Emile PONCE, Natalie POOLE, et al. Evaluation, treatment, and prevention of vitamin D deficiency: an Endocrine Society clinical practice guideline. JCEM. 2010; 96(7):1911-30. PATIENT NOT FASTINGP ERFORMED BY: ORTIZ Booking Angelrp Oishbg0365 [address] [facility] [id number] CBC WITH MANUAL DIFF (61404) Ordered By: Care Attendant on 12-22-2013 Basophils #/vol (Bld) 0.0 {x10E3/uL} Normal 0.0-0.2 [facility] Work Phone: Comment on above: PATIENT NOT FASTINGP ERFORMED BY: ORTIZ [facility] Mztbyq1121 [facility] [id number] Information: [id number], 467656 Basophils/100 WBC (Bld) 0 % Normal 0-3 [facility] Work Phone: Comment on above: PATIENT NOT FASTINGP ERFORMED BY: M-DISC Ssofxe7874 [facility] [id number] Information: R34694, 854246 Eosinophils #/vol (Bld) 0.1 {x10E3/uL} Normal 0.0-0.4 [facility] Work Phone: Comment on above: PATIENT NOT FASTINGP ERFORMED BY: ORTIZ Chester6370 [facility] [id number] Information: Z09305, 018740 Eosinophils/100 WBC (Bld) 2 % Normal 0-5 [facility] Work Phone: Comment on above: PATIENT NOT FASTINGP ERFORMED BY: ORTIZ Robledo[address] [id number] Information: [id number], 697142 Erythrocyte distribution width Ratio (RBC) 13.7 % Normal 12.3-15.4 [facility] Work Phone: Comment on above: PATIENT NOT FASTINGP ERFORMED BY: Meena[address] [id number] Information: [id number], 136516 Hematocrit Volume Fraction (Bld) 38.4 % Normal 34.0-46.6 [facility] Work Phone: Comment on above: PATIENT NOT FASTINGP ERFORMED BY: ORTIZ Hou Bzrocv2267 [facility] [id number] Information: I24503, [id number] Hemoglobin mass conc (Bld) 12.8 g/dL Normal 11.1-15.9 [facility] Work Phone: Comment on above: PATIENT NOT FASTINGP ERFORMED BY: ORTIZ RobledoAscension Borgess Allegan Hospital6370 [facility] [id number] Information: F98360, 154216 Immature granulocytes #/vol (Bld) 0.0 {x10E3/uL} Normal 0.0-0.1 [facility] Work Phone: Comment on above: PATIENT NOT FASTINGP ERFORMED BY: ORTIZ RobledoAscension Borgess Allegan Hospital6370 [facility] [id number] Information: H69683, 042164 Immature granulocytes/100 WBC (Bld) 0 % Normal 0-2 [facility] Work Phone: Comment on above: PATIENT NOT FASTINGP ERFORMED BY: ORTIZ LabCo Foimfs6000 [facility] [id number] Information: E42477, 061469 Lymphocytes #/vol (Bld) 1.1 {x10E3/uL} Normal 0.7-3.1 [facility] Work Phone: Comment on above: PATIENT NOT FASTINGP ERFORMED BY: ORTIZ LabCoKindred Hospital at MorrisOhxpal0195 [facility] [id number] Information: F80716, 910465 Lymphocytes/100 WBC (Bld) 22 % Normal 14-46 [facility] Work Phone: Comment on above: PATIENT NOT FASTINGP ERFORMED BY: ORTIZ [facility]oPershing [facility] Hospital Zszfyt8047 [facility] [id number] Information: Q12707, 289081 MCH Entitic mass (RBC) 30.6 pg Normal 26.6-33.0 [facility] Internal Medicine Work Phone: Comment on above: PATIENT NOT FASTINGP ERFORMED BY: ORTIZ LabCo Ssoqyf6891 [facility] [id number] Information: Z24345, 125029 MCHC mass conc (RBC) 33.3 g/dL Normal 31.5-35.7 [facility] Internal Medicine Work Phone: Comment on above: PATIENT NOT FASTINGP ERFORMED BY: LabCoKindred Hospital at MorrisDbiscc2865 [facility] [id number] Information: G28884, 380417 MCV Entitic volume (RBC) 92 fL Normal 79-97 [facility] Internal Medicine Work Phone: Comment on above: PATIENT NOT FASTINGP ERFORMED BY: ORTIZ LabCo Dnewyy7337 [facility] [id number] Information: O05058, 642994 Monocytes #/vol (Bld) 0.4 {x10E3/uL} Normal 0.1-0.9 [facility] Work Phone: Comment on above: PATIENT NOT FASTINGP ERFORMED BY: ORTIZ Chester6370 [facility] [id number] Information: D13339, 540729 Monocytes/100 WBC (Bld) 8 % Normal 4-12 [facility] Work Phone: Comment on above: PATIENT NOT FASTINGP ERFORMED BY: ORTIZ Chester6370 [facility] [id number] Information: [id number], [id number] Neutrophils #/vol (Bld) 3.3 {x10E3/uL} Normal 1.4-7.0 [facility] Work Phone: Comment on above: PATIENT NOT FASTINGP ERFORMED BY: ORTIZ Chester6370 [facility] [id number] Information: A78131, 695894 Neutrophils/100 WBC (Bld) 68 % Normal 40-74 [facility] Work Phone: Comment on above: PATIENT NOT FASTINGP ERFORMED BY: ORTIZ RobledoCo Jyhsfm2733 [facility] [id number] Information: Y36266, 253873 Platelets #/vol (Bld) 190 {x10E3/uL} Normal 155-379 [facility] Work Phone: Comment on above: PATIENT NOT FASTINGP ERFORMED BY: ORTIZ LabCo Vtjnrs2781 [facility] [id number] Information: M34406, 058735 RBC #/vol (Bld) 4.18 {x10E6/uL} Normal 3.77-5.28 [facility] Internal Medicine Work Phone: Comment on above: PATIENT NOT FASTINGP ERFORMED BY: ORTIZ [facility] Uanulh5918 [facility] [id number] Information: H59033, 022435 WBC #/vol (Bld) 4.8 {x10E3/uL} Normal 3.4-10.8 [facility] Internal Medicine Work Phone: Comment on above: PATIENT NOT FASTINGP ERFORMED BY: [employer] Oajvde7649 [address] SocialBuyFormerly [facility] Health Carein [place] [id number] Information: Q31305, 731495 D-Dimer (77487)Ordered By: Dc keithtem Rn Diabetes Educator on 12-22-2013 D-Dimer (56081) 0.40 {ug_FEU/mL} Normal 0.00-0.[address] [facility] Internal Medicine Work Phone: Comment on above: In conjunction with a non-high clinical probability assessment, anormal (<0.50 ug FEU/mL) result excludes deep vein thrombosis (DVT)and pulmonary embolism (PE) with high sensitivity. PATIENT NOT FASTINGP ERFORMED BY: [employer] Xgroca1131 [address] TicTacTiBetsy [facility] [id number] PT (Prothrobim Time) (17274) Ordered By: Care Attendant on 12-22-2013 INR Coag RelTime (PPP) 1.0 {INR} Normal 0.8-1.2 [facility] Internal Medicine Work Phone: Comment on above: Reference interval i s for non-anticoagulated patients. . Suggested INR therapeutic range for Vitamin K antagonist therapy: Standard Dose (moderate intensity therapeutic range): 2.0 - 3.0 Higher intensity therapeutic range 2.5 - 3.5 PATIENT NOT FASTINGP ERFORMED BY: Team-Match Tzjyzg2854 HelloWalletAtrium Health Cleveland [id number] Prothrombin time (PT) Coag time (PPP) 10.6 {sec} Normal 9.1-12.0 [facility] Internal Medicine Work Phone: Comment on above: PATIENT NOT FASTINGP ERFORMED BY: Team[employer]Match Touysi8564 Rodriguez SocialBuyAtrium Health [place] [id number] PTT (Activated Partial Throm boplastin Time) (40963)Ordered By: Care Attendant on 12-22-2013 aPTT Coag time (PPP) 26 {sec} Normal 24-33 [facility] Internal Medicine Work Phone: Comment on above: This test has not be en validated for monitoring unfractionated heparintherapy. aPTT-based therapeutic ranges for unfractionated heparintherapy have not been established. For general guidelines onHeparin monitoring, refer to the [facility] Directory of Services. PATIENT NOT FASTINGP ERFORMED BY: ORTIZ Hou Kxleoz5199 [facility] [id number] MICROALBUMINOrdered By: Syst em Rn Diabetes Educator on 12-05-2013 Albumin DL <= 20 mg/L mass conc (U) 23.2 ug/mL Abnormal 0.0-17.0 [facility] Work Phone: Comment on above: PATIENT NOT FASTINGP ERFORMED BY: [place] [id number] [facility] [id number] Albumin/Creatinine mass ratio (U) 14.1 {mg/g_creat} Normal 0.0-30.0 [facility] Work Phone: Comment on above: PATIENT NOT FASTINGP ERFORMED BY: [facility] [place] [address] [id number] Creatinine mass conc (U) 164.8 mg/dL Normal 15.0-278.0 [facility] Work Phone: Comment on above: PATIENT NOT FASTINGP ERFORMED BY: [facility] Osklvb0059 [facility] [id number] URINALYSIS, W/ MICRO ([id number]) Ordered By: Care Attendant on 12-05-2013 Appearance Nom (U) Cloudy Abnormal Compre [place] [facility] Internal [facility] Work Phone: Comment on above: PATIENT NOT FASTINGP ERFORMED BY: [place] [id number] [facility] [id number] Information: [id number] Bilirubin Ql (U) Negative Normal Comprehe nsive Internal Medicine Work Phone: Comment on above: PATIENT NOT FASTINGP ERFORMED BY: [facility] Dpeojg3184 [facility] [id number] Information: [id number] Color Nom (U) Yellow Normal Comprehensi Internal Medicine Work Phone: Comment on above: PATIENT NOT FASTINGP ERFORMED BY: [place] 9063870 [facility] [id number] Information: [id number] Glucose Ql (U) Negative Normal Comprehens trupti Internal Medicine Work Phone: Comment on above: PATIENT NOT FASTINGP ERFORMED BY: ORTIZ [facility] Bahkrd0693 Rodriguez RoadFormerly [facility] Carein [place] [id number] Information: [id number] Hemoglobin Ql (U) Negative Normal Compreh ensive Internal Medicine Work Phone: Comment on above: PATIENT NOT FASTINGP ERFORMED BY: ORTIZ [facility] Klvesh8085 Rodriguez RoadAtrium Health Cleveland [id number] Information: [id number] Ketones Ql (U) Negative Normal Comprehens trupti Internal Medicine Work Phone: Comment on above: PATIENT NOT FASTINGP ERFORMED BY: [facility] Waqgeb9134 Rodriguez [facility] [id number] Information: [id number] Leukocyte esterase Test strip Ql (U) Negative Normal [facility] Work Phone: Comment on above: PATIENT NOT FASTINGP ERFORMED BY: [facility] Lmqztq5791 Rodriguez [facility] [id number] Information: [id number] Microscopic observation LM Nom (Urine sed) See below: Normal [facility] Work Phone: Comment on above: PATIENT NOT FASTINGP ERFORMED BY: [facility] Cilxec6971 Rodriguez [facility] [place] [id number] Information: [id number] Microscopic observation LM Nom (Urine sed) MICRON Normal [facility] Work Phone: Comment on above: Microscopic follows if indicated. PATIENT NOT FASTINGP ERFORMED BY: [facility] Xbpbmm9609 Rodriguez RoadFormerly [facility] Carein [place] [id number] Information: [id number] Nitrite Ql (U) Negative Normal Comprehens trupti Internal Medicine Work Phone: Comment on above: PATIENT NOT FASTINGP ERFORMED BY: [facility] Lnkcxq5486 Rodriguez RoadFormerly [facility] Carein [place] [id number] Information: [id number] pH (U) 5.0 [pH] Normal 5.0-7.5 [facility] Work Phone: Comment on above: PATIENT NOT FASTINGP ERFORMED BY: ORTIZ HouRaymond Ville [id number] [facility] [id number] Information: [id number] Protein Ql (U) Negative Normal Comprehens trupti Internal Medicine Work Phone: Comment on above: PATIENT NOT FASTINGP ERFORMED BY: [address] [id number] Information: [id number] Specific gravity Relative Density (U) 1.017 1 Normal 1.005-1.03 0 [facility] Work Phone: Comment on above: PATIENT NOT FASTINGP ERFORMED BY: Meena[address] [id number] Information: [id number] Urobilinogen Test strip mass conc (U) 0.2 mg/dL Normal 0.0-1.9 Comprehensiv e Internal Medicine Work Phone: Comment on above: PATIENT NOT FASTINGP ERFORMED BY: [address] [id number] Information: [id number] CBC WITH MANUAL DIFF (98963) Ordered By: Care Attendant on 12-01-2013 Basophils #/vol (Bld) 0.0 {x10E3/uL} Normal 0.0-0.2 [facility] Work Phone: Comment on above: PATIENT WAS FASTINGP ERFORMED BY: [place] 9063870 [facility] [id number] Information: [id number] Basophils/100 WBC (Bld) 0 % Normal 0-3 [facility] Work Phone: Comment on above: PATIENT WAS FASTINGP ERFORMED BY: [place] 9063870 [facility] [id number] Information: [id number] Eosinophils #/vol (Bld) 0.1 {x10E3/uL} Normal 0.0-0.4 [facility] Work Phone: Comment on above: PATIENT WAS FASTINGP ERFORMED BY: [place] 9063870 [facility] [id number] Information: 540322,[id number] Eosinophils/100 WBC (Bld) 1 % Normal 0-5 [facility] Work Phone: Comment on above: PATIENT WAS FASTINGP ERFORMED BY: [address] [id number] Information: [id number] Erythrocyte distribution width Ratio (RBC) 13.5 % Normal 12.3-15.4 [facility] Work Phone: Comment on above: PATIENT WAS FASTINGP ERFORMED BY: [address] [id number] Information: [id number] Hematocrit Volume Fraction (Bld) 40.8 % Normal 34.0-46.6 [facility] Work Phone: Comment on above: PATIENT WAS FASTINGP ERFORMED BY: [address] [id number] Information: [id number] Hemoglobin mass conc (Bld) 13.2 g/dL Normal 11.1-15.9 [facility] Work Phone: Comment on above: PATIENT WAS FASTINGP ERFORMED BY: [address] [id number] Information: [id number] Immature granulocytes #/vol (Bld) 0.0 {x10E3/uL} Normal 0.0-0.1 [facility] Work Phone: Comment on above: PATIENT WAS FASTINGP ERFORMED BY: [place] 9063870 [facility] [id number] Information: [id number] Immature granulocytes/100 WBC (Bld) 0 % Normal 0-2 [facility] Work Phone: Comment on above: PATIENT WAS FASTINGP ERFORMED BY: [facility]6370 [facility] [id number] Information: [id number] Lymphocytes #/vol (Bld) 1.4 {x10E3/uL} Normal 0.7-3.1 [facility] Work Phone: Comment on above: PATIENT WAS FASTINGP ERFORMED BY: [address] [id number] Information: [id number] Lymphocytes/100 WBC (Bld) 18 % Normal 14-46 [facility] Work Phone: Comment on above: PATIENT WAS FASTINGP ERFORMED BY: [address] [id number] Information: [id number] MCH Entitic mass (RBC) 30.1 pg Normal 26.6-33.0 [facility] Internal Medicine Work Phone: Comment on above: PATIENT WAS FASTINGP ERFORMED BY: [address] [id number] Information: 400114,[id number] MCHC mass conc (RBC) 32.4 g/dL Normal 31.5-35.7 [facility] Internal Medicine Work Phone: Comment on above: PATIENT WAS FASTINGP ERFORMED BY: [address] [id number] Information: [id number],[id number] MCV Entitic volume (RBC) 93 fL Normal 79-97 [facility] Internal Medicine Work Phone: Comment on above: PATIENT WAS FASTINGP ERFORMED BY: [address] [id number] Information: [id number] Monocytes #/vol (Bld) 0.6 {x10E3/uL} Normal 0.1-0.9 [facility] Internal Medicine Work Phone: Comment on above: PATIENT WAS FASTINGP ERFORMED BY: ORTIZ Crowelin6370 [facility] [id number] Information: [id number] Monocytes/100 WBC (Bld) 7 % Normal 4-12 [facility] Work Phone: Comment on above: PATIENT WAS FASTINGP ERFORMED BY: ORTIZ Hou Mvjddj[address] [id number] Information: [id number] Neutrophils #/vol (Bld) 5.9 {x10E3/uL} Normal 1.4-7.0 [facility] Work Phone: Comment on above: PATIENT WAS FASTINGP ERFORMED BY: ORTIZ Crowe[address] [id number] Information: [id number] Neutrophils/100 WBC (Bld) 74 % Normal 40-74 [facility] Work Phone: Comment on above: PATIENT WAS FASTINGP ERFORMED BY: ORTIZ Crowelin6370 [facility] [id number] Information: [id number] Platelets #/vol (Bld) 225 {x10E3/uL} Normal 155-379 [facility] Work Phone: Comment on above: PATIENT WAS FASTINGP ERFORMED BY: ORTIZ Crowe[address] [id number] Information: [id number] RBC #/vol (Bld) 4.38 {x10E6/uL} Normal 3.77-5.28 [facility] Internal Medicine Work Phone: Comment on above: PATIENT WAS FASTINGP ERFORMED BY: ORTIZ [place]ouRaymond [place] [id number] [facility] [id number] Information: [id number] WBC #/vol (Bld) 8.0 {x10E3/uL} Normal 3.4-10.8 [facility] Internal Medicine Work Phone: Comment on above: PATIENT WAS FASTINGP ERFORMED BY: ORTIZ Crowelin6370 [facility] [id number] Information: [id number] LIPID PANEL (89183)Ordered B y: Care Attendant on 12-01-2013 Cholesterol in HDL mass conc 47 mg/dL Normal [facility] Work Phone: Comment on above: According to ATP-III Guidelines, HDL-C >59 mg/dL is considered anegative risk factor for CHD. PATIENT WAS FASTINGP ERFORMED BY: ORTIZ [facility]Pers[facility] Xovesc6970 [facility] [id number] Cholesterol in LDL mass conc 50 mg/dL Normal 0-99 [facility] Work Phone: Comment on above: PATIENT WAS FASTINGP ERFORMED BY: ORTIZ Ameya Xevxhg9291 [facility] [id number] Cholesterol in LDL/Cholesterol in HDL mass ratio 1.1 {ratio_units} Normal 0.0-3.2 [facility] Work Phone: Comment on above: PATIENT WAS FASTINGP ERFORMED BY: ORTIZ LabPers[facility] Mjdgce4591 [facility] [id number] Cholesterol in VLDL mass conc 35 mg/dL Normal 5-40 [facility] Work Phone: Comment on above: PATIENT WAS FASTINGP ERFORMED BY: [facility] Xyxsez2065 [facility] [id number] Cholesterol mass conc 132 mg/dL Normal 100-199 Com prehensive Internal Medicine Work Phone: Comment on above: PATIENT WAS FASTINGP ERFORMED BY: [facility] Rjswnj9510 [facility] [id number] Triglyceride mass conc 177 mg/dL Abnormal 0-149 Co [facility] hospitalehens[facility] Internal Medicine Work Phone: Comment on above: PATIENT WAS FASTINGP ERFORMED BY: [facility] Rlvzhr0833 [facility] [id number] Lab Report: Ordered by Dr. Saritha delgado 12-01-2013 Alanine aminotransferase (ALT) 10 U/L Invalid Interpretation Code [facility] Work Phone: Alkaline phosphatase (ALP) 76 U/L Invalid Interpretation Code [facility] Work Phone: Aspartate aminotransferase (AST) 13 U/L Invalid Interpretation Code [facility] Work Phone: METABOLIC PANEL, COMPREHENSI VE (43502)Ordered By: Care Attendant on 12-01-2013 Albumin mass conc 4.5 g/dL Normal 3.5-4.8 Compreh [facility] hospitalive Internal Medicine Work Phone: Comment on above: PATIENT WAS FASTINGP ERFORMED BY: CB [facility] Iaodlt4628 Rodriguez RoadDublin [place] [id number] Albumin/Globulin mass ratio 2.1 {ratio} Normal 1.1-2.5 [facility] Work Phone: Comment on above: PATIENT WAS FASTINGP ERFORMED BY: CB [facility] Aklecb8067 Rodriguez RoadDublin [place] [id number] ALP enzyme act/vol 76 [iU]/L Normal 39-117 [facility] Internal Medicine Work Phone: Comment on above: PATIENT WAS FASTINGP ERFORMED BY: CB [facility] Xmphed8499 Rodriguez RoadDublin [place] [id number] ALT enzyme act/vol 10 [iU]/L Normal 0-32 Compre [facility] Internal Medicine Work Phone: Comment on above: PATIENT WAS FASTINGP ERFORMED BY: CB [facility] Wgrmpa2727 Rodriguez RoadDublin [place] [id number] AST enzyme act/vol 13 [iU]/L Normal 0-40 [facility] Internal Medicine Work Phone: Comment on above: PATIENT WAS FASTINGP ERFORMED BY: CB [facility] Nnpfcx3433 Rodriguez RoadDublin [place] [id number] Bilirubin mass conc 0.3 mg/dL Normal 0.0-1.2 Compr [facility] Internal Medicine Work Phone: Comment on above: PATIENT WAS FASTINGP ERFORMED BY: CB [facility] Fonnjs8293 Rodriguez RoadDublin [place] [id number] Calcium mass conc 9.9 mg/dL Normal 8.6-10.2 Compreh ensive Internal Medicine Work Phone: Comment on above: PATIENT WAS FASTINGP ERFORMED BY: ORTIZ [facility] Zokhyx6917 Rodriguez Roadblin [place] [id number] Chloride molar conc 101 mmol/L Normal 97-108 Compr ehensive Internal Medicine Work Phone: Comment on above: PATIENT WAS FASTINGP ERFORMED BY: ORTIZ [facility] Dcgptw2112 [address] [facility] Hospitalbl[facility] [place] [id number] CO2 molar conc 27 mmol/L Normal 19-28 Comprehens trupti Internal Medicine Work Phone: Comment on above: PATIENT WAS FASTINGP ERFORMED BY: ORTIZ [facility] Qgqhzu6214 Rodriguez [facility] [place] [id number] Creatinine mass conc 0.97 mg/dL Normal 0.57-1.00 Comp rehensive Internal Medicine Work Phone: Comment on above: PATIENT WAS FASTINGP ERFORMED BY: ORTIZ [facility] Qjmihc5617 Rodriguez [facility] [id number] GFR/1.73 sq M predicted among blacks CKD-EPI vol rate/area (S/P/Bld) 67 mL/min/1.73 Normal [facility] Work Phone: Comment on above: PATIENT WAS FASTINGP ERFORMED BY: ORTIZ [facility] Nzkxlq6944 [address] [facility] [id number] GFR/1.73 sq M predicted among non-blacks CKD-EPI vol rate/area (S/P/Bld) 58 mL/min/1.73 Abnormal Comprehensiv e Internal Medicine Work Phone: Comment on above: PATIENT WAS FASTINGP ERFORMED BY: CB [facility] Sfblir3284 Rodriguez [facility] [place] [id number] Globulin mass conc (S) 2.1 g/dL Normal 1.5-4.5 Co mprehensive Internal Medicine Work Phone: Comment on above: PATIENT WAS FASTINGP ERFORMED BY: ORTIZ [facility] Dpmmzo7961 Rodriguez [facility] [place] [id number] Glucose mass conc 99 mg/dL Normal 65-99 Compreh ensive Internal Medicine Work Phone: Comment on above: PATIENT WAS FASTINGP ERFORMED BY: ORTIZ Ameyaaustyn Wuymgo3713 [address] [facility] [id number] Potassium molar conc 4.9 mmol/L Normal 3.5-5.2 Comp rehensive Internal Medicine Work Phone: Comment on above: PATIENT WAS FASTINGP ERFORMED BY: ORTIZ LabKellie Yyujsy8919 [facility] [id number] Protein mass conc 6.6 g/dL Normal 6.0-8.5 Compreh ensive Internal Medicine Work Phone: Comment on above: PATIENT WAS FASTINGP ERFORMED BY: ORTIZ Ameyaaustyn CroweImuihe3848 [facility] [id number] Sodium molar conc 141 mmol/L Normal 134-144 Compreh ensive Internal Medicine Work Phone: Comment on above: PATIENT WAS FASTINGP ERFORMED BY: ORTIZ [facility]oPers[facility] Yffyhk0487 [facility] [id number] Urea nitrogen mass conc 21 mg/dL Normal 8-27 [facility] Work Phone: Comment on above: PATIENT WAS FASTINGP ERFORMED BY: ORTIZ Ameyaaustyn Uwvbxv0053 [facility] [id number] Urea nitrogen/Creatinine mass ratio 22 mg/mg Normal 11-26 [facility] Work Phone: Comment on above: PATIENT WAS FASTINGP ERFORMED BY: ORTIZ Hou Frczhk3363 [facility] [id number] TSH (43715)Ordered By: Syste m Rn Diabetes Educator on 12-01-2013 Thyrotropin Qn 1.040 {uIU/mL} Normal 0.450-4.50 0 [facility] Work Phone: Comment on above: PATIENT WAS FASTINGP ERFORMED BY: ORTIZ LabKellie Tlawox8871 [facility] [id number] URINE IBRAHIMA CULTURE (TY COL COUNT) (47202)Ordered By: Care Attendant on 12-01-2013 Bacteria identified Cx Nom (U) Escherichia coli Normal [facility] Work Phone: Comment on above: Greater than 100,000 colony forming units per mL PATIENT NOT FASTINGP ERFORMED BY: ORTIZ [employer] Mjakeb9239 [facility] [id number] Information: SRC:UR [id number] Bacteria identified Cx Nom (U) Final report Normal [facility] Work Phone: Comment on above: PATIENT NOT FASTINGP ERFORMED BY: ORTIZ [employer]Co Gbumvs3683 [facility] [id number] Information: SRC:UR K37883 Other Antibiotic susc [facility] Normal [facility] prehensive Internal Medicine Work Phone: Comment on above: S = Susceptibl e; I = Intermediate; R = Resistant P = Positive; N = Negative MICS are expressed in micrograms per mL Antibiotic RSLT#1 RSLT#2 RSLT#3 RSLT#4Amoxicillin/Clavulanic Acid SAmpicillin SCefepime SCeftriaxone SCefuroxime SCephalothin SCiprofloxacin SErtapenem SGentamicin SImipenem SLevofloxacin SNitrofurantoin SPiperacillin STetracycline STobramycin STrimethoprim/Sulfa S PATIENT NOT FASTINGP ERFORMED BY: ORTIZ Ameya Tezsfu9047 [facility] [id number] Information: SRC:UR R28133 Urinalysis, Office (03566)Or dered By: Jacinta Patel on 12-01-2013 Bilirubin [...] Internal Medicine Work Phone: Vitamin D Hydroxy (27825)Ord ered By: Care Attendant on 12-01-2013 25-Hydroxyvitamin D2+25-Hydroxyvitamin D3 mass conc 38.9 ng/mL Normal 30.0-100.0 [facility] Work Phone: Comment on above: Vitamin D deficiency has been defined by the [place] of[place]icine and an Endocrine Society practice guideline as alevel of serum 25-OH vitamin D less than 20 ng/mL (1,2).The Endocrine Society went on to further define vitamin Dinsufficiency as a level between 21 and 29 ng/mL (2).1. IOM ([place] of Medicine). 2010. Dietary reference intakes for calcium and D. [place]: The National Academies Press.2. Allie MF, Emile NC, Natalie POOLE, et al. Evaluation, treatment, and prevention of vitamin D deficiency: an Endocrine Society clinical practice guideline. JCEM. 2010; 96(7):1911-30. PATIENT WAS FASTINGP ERFORMED BY: [facility]6370 [facility] [id number] Lab Report: PTon 04-19-2013 INR in blood by coagulation 1.0 {INR} Normal [facility] Work Phone: prothrombin time, actual/normal, ratio 12.8 SECONDS Normal 11.9-14.4 [facility] Work Phone: Lab Report: PTTon 04-19-2013 aPTT 29.8 s Normal 24.1-36.2 [facility] Work Phone: Replaced Document: Escobar E CG Observationson 04-19-2013 Pulse (Heart Rate) 421 ms Invalid Interpretation Code [facility] Work Phone: URINE IBRAHIMA CULTURE-TY COL C OUNT (47519)Ordered By: Care Attendant on 04-18-2013 Bacteria identified Cx Nom (U) Final report Normal [facility] Work Phone: Comment on above: PATIENT NOT FASTINGP ERFORMED BY: [facility] Cavdcx6420 Rodriguez [facility]icTacTiBets[facility] [id number] Information: SRC:UR Q55087 Bacteria identified Cx Nom (U) NG36 Normal [facility] Work Phone: Comment on above: No growth in 36 - 48 hours. PATIENT NOT FASTINGP ERFORMED BY: [facility] Jnerle4264 OrbiterBaptist Health Corbin [id number] Information: SRC:UR J98198 Urinalysis, Office (04707)Or dered By: Jacinta Patel on 04-15-2013 Bilirubin [...] 02-05-20 13 Albumin 4.0 g/dL Normal 3.4-5.0 [facility] Work Phone: Bilirubin (direct) 0.12 mg/dL Normal 0.00-0.30 [facility] Work Phone: Bilirubin (total) 0.40 mg/dL Normal 0.00-1.00 [facility] Work Phone: URINE IBRAHIMA CULTURE (TY COL COUNT) (40993)Ordered By: Care Attendant on 09-30-2012 Bacteria identified Cx Nom (U) Escherichia coli Normal [facility] Work Phone: Comment on above: Greater than 100,000 colony forming units per mL PATIENT NOT FASTINGP ERFORMED BY: ORTIZ LabBaubleBar Yujbue5293 OrbiterBaptist Health Corbin [id number] Information: SRC:UR [id number] Bacteria identified Cx Nom (U) Final report Normal [facility] Work Phone: Comment on above: PATIENT NOT FASTINGP ERFORMED BY: ORTIZ [employer] Cfhtfq4488ODIMEGWU PROFESSIONAL CONCEPTS INTERNATIONALBaptist Health Corbin [id number] Information: SRC:UR E97324 Other Antibiotic [facility] [employer] [facility] prehensive Internal Medicine Work Phone: Comment on above: S = Susceptibl e; I = Intermediate; R = Resistant P = Positive; N = Negative MICS are expressed in micrograms per mL Antibiotic RSLT#1 RSLT#2 RSLT#3 RSLT#4Amoxicillin/Clavulanic Acid SAmpicillin SCefazolin SCefepime SCeftriaxone SCefuroxime SCephalothin SCiprofloxacin SESBL NErtapenem SGentamicin SImipenem SLevofloxacin SNitrofurantoin SPiperacillin STetracycline STobramycin STrimethoprim/Sulfa S PATIENT NOT FASTINGP ERFORMED BY: ORTIZ [facility] Rlkxag2340 HelloWalletAtrium Health [facility] [id number] Information: SRC:UR [id number] Urinalysis, Office (44486)Or dered By: Alyson Dixon on 09-30-2012 Bilirubin [...] Albumin/Globulin Ratio 1.1 {ratio} Invalid Interpretation Code [facility] Work Phone: Protein 6.7 g/dL Invalid Interpretation Code [facility] Work Phone: Alkaline Phosphatase (39937) Ordered By: Care Attendant on 02-25-2012 ALP enzyme act/vol 67 [iU]/L Normal 25-165 Compre [place] [facility] Internal [facility] Work Phone: Comment on above: PATIENT NOT FASTINGP ERFORMED BY: [facility]Asc[facility]6370 [facility] [id number] CALCIFIDIOL (35377) VIT D 25 Ordered By: Care Attendant on 02-25-2012 25-Hydroxyvitamin D2+25-Hydroxyvitamin D3 mass conc 45.8 ng/mL Normal 30.0-100.0 [facility] Work Phone: Comment on above: Vitamin D deficiency has been defined by the [place] ofMedicine and an Endocrine Society practice guideline as alevel of serum 25-OH vitamin D less than 20 ng/mL (1,2).The Endocrine Society went on to further define vitamin Dinsufficiency as a level between 21 and 29 ng/mL (2).1. IOM ([place] of Medicine). 2010. Dietary reference intakes for calcium and D. [place]: The National Academies Press.2. Allie MF, Emile PONCE, Natalie POOLE, et al. Evaluation, treatment, and prevention of vitamin D deficiency: an Endocrine Society clinical practice guideline. JCEM. 2010; 96(7):1911-30. PATIENT NOT FASTINGP ERFORMED BY: ORTIZ [facility] Ineicu8876 Rodriguez TicTacTiin [place] [id number] Information: [id number] Calcium Serum (90856)Ordered By: Care Attendant on 02-25-2012 Calcium mass conc 9.3 mg/dL Normal 8.6-10.2 Compreh [facility] Internal Medicine Work Phone: Comment on above: PATIENT NOT FASTINGP ERFORMED BY: ORTIZ [facility] Pkcyyh8215 [address] [facility]TacTiB[facility] [id number] Clinical Lists Update: Prelo photo checker 02-16-2012 MCHC 34.6 % Invalid Interpretation Code [facility] Work Phone: CBC (AUTO) ([id number])Ordered By : Care Attendant on 10-14-2010 Erythrocyte distribution width Ratio (RBC) 13.5 % Normal 11.7-15.0 [facility] Work Phone: Comment on above: PATIENT NOT FASTINGP ERFORMED BY: ORTIZ [facility] Hynltm4884 [facility] [id number] Hematocrit Volume Fraction (Bld) 40.4 % Normal 34.0-44.0 [facility] Work Phone: Comment on above: PATIENT NOT FASTINGP ERFORMED BY: [facility] Iazkxu4670 [address] TicTacTiin [place] [id number] Hemoglobin mass conc (Bld) 13.7 g/dL Normal 11.5-15.0 [facility] Work Phone: Comment on above: PATIENT NOT FASTINGP ERFORMED BY: ORTIZ [facility] Jiobza1300 [address] TicTacTiin [place] [id number] MCH Entitic mass (RBC) 29.5 pg Normal 27.0-34.0 [facility] Internal Medicine Work Phone: Comment on above: PATIENT NOT FASTINGP ERFORMED BY: ORTIZ [facility] Mdzyls8456 Rodriguez RoadDublin [place] [id number] MCHC mass conc (RBC) 33.9 g/dL Normal 32.0-36.0 [facility] Internal Medicine Work Phone: Comment on above: PATIENT NOT FASTINGP ERFORMED BY: CB [facility] Wfplpx2609 Rodriguez RoadDublin [place] [id number] MCV Entitic volume (RBC) 87 fL Normal 80-98 [facility] Internal Medicine Work Phone: Comment on above: PATIENT NOT FASTINGP ERFORMED BY: ORTIZ [facility] Svmmxa4529 Rodriguez RoadDublin [place] [id number] Platelets #/vol (Bld) 280 {x10E3/uL} Normal 140-415 [facility] Internal Medicine Work Phone: Comment on above: PATIENT NOT FASTINGP ERFORMED BY: ORTIZ [facility] Xqbhbk2106 Rodriguez RoadDublin [place] [id number] RBC #/vol (Bld) 4.64 {x10E6/uL} Normal 3.80-5.10 [facility] Internal Medicine Work Phone: Comment on above: PATIENT NOT FASTINGP ERFORMED BY: ORTIZ [facility] Xpwkds7226 [address] RoadDublin [place] [id number] WBC #/vol (Bld) 6.2 {x10E3/uL} Normal 4.0-10.5 [facility] Internal Medicine Work Phone: Comment on above: PATIENT NOT FASTINGP ERFORMED BY: ORTIZ [facility] Veejuv4117 Rodriguez Roadblin [place] [id number] METABOLIC PANEL, COMPREHENSI VE (21131)Ordered By: Care Attendant on 10-14-2010 Albumin mass conc 4.4 g/dL Normal 3.5-4.8 Compreh [facility] Internal Medicine Work Phone: Comment on above: PATIENT NOT FASTINGP ERFORMED BY: ORTIZ [facility] Zblvka9547 Rodriguez RoadDublin [place] [id number] Information: [id number] Albumin/Globulin mass ratio 1.8 {ratio} Normal 1.1-2.5 [facility] Internal Medicine Work Phone: Comment on above: PATIENT NOT FASTINGP ERFORMED BY: ORTIZ LabCoaustyn CroweHxkgal7259 [facility] [id number] Information: [id number],[id number] ALP enzyme act/vol 84 [iU]/L Normal 25-165 [facility] Internal Medicine Work Phone: Comment on above: PATIENT NOT FASTINGP ERFORMED BY: LabCoRaymond Ville [id number] [facility] [id number] Information: [id number] ALT enzyme act/vol 13 [iU]/L Normal 0-40 [facility] Internal Medicine Work Phone: Comment on above: PATIENT NOT FASTINGP ERFORMED BY: LabCoKindred Hospital at MorrisUveqam1133 [facility] [id number] Information: [id number] AST enzyme act/vol 13 [iU]/L Normal 0-40 [facility] Internal Medicine Work Phone: Comment on above: PATIENT NOT FASTINGP ERFORMED BY: ORTZI LabCoKindred Hospital at MorrisFenmgx2777 [facility] [id number] Information: 577505,F17575 Bilirubin mass conc 0.2 mg/dL Normal 0.0-1.2 [facility] Internal Medicine Work Phone: Comment on above: PATIENT NOT FASTINGP ERFORMED BY: LabCoKindred Hospital at MorrisPwanpy9668 [facility] [id number] Information: [id number],[id number] Calcium mass conc 10.4 mg/dL Abnormal 8.6-10.2 Compreh [facility] Internal Medicine Work Phone: Comment on above: PATIENT NOT FASTINGP ERFORMED BY: Lab[facility] Dvymax9174 [facility] [id number] Information: [id number],[id number] Chloride molar conc 101 mmol/L Normal 97-108 Compr ehensive Internal Medicine Work Phone: Comment on above: PATIENT NOT FASTINGP ERFORMED BY: ORTIZ [facility] Bmimyf1347 [facility] [id number] Information: [id number],R16108 CO2 molar conc 28 mmol/L Normal 20-32 Comprehens [employer] [facility] Internal Medicine Work Phone: Comment on above: PATIENT NOT FASTINGP ERFORMED BY: CB [facility] Ffsken6147 [facility] [id number] Information: [id number],[id number] Creatinine mass conc 0.70 mg/dL Normal 0.57-1.00 Comp [facility] Internal Medicine Work Phone: Comment on above: PATIENT NOT FASTINGP ERFORMED BY: ORTIZ RobledoCo Bcriia9031 [facility] [id number] Information: 839801,U71113 GFR/1.73 sq M predicted among blacks MDRD [...] PATIENT NOT FASTINGP ERFORMED BY: ORTIZ [facility] Yldlvs8951 [facility] [id number] Information: 258421,Z44618 GFR/1.73 sq M.predicted MDRD (S/P/Bld) [Vol rate/Area] mL/min/{1.73_m2} Normal [facility] Work Phone: Comment on above: PATIENT NOT FASTINGP ERFORMED BY: ORTIZ [facility] Lxdedo4756 [facility] [id number] Information: [id number],[id number] GFR/1.73 sq M.predicted MDRD vol rate/area mL/min/{1.73_m2} Normal [facility] Work Phone: Comment on above: PATIENT NOT FASTINGP ERFORMED BY: ORTIZ Nilda Chester6370 [facility] [id number] Information: 539668,S68521 Globulin mass conc (S) 2.5 g/dL Normal 1.5-4.5 [facility]ensive [facility] Work Phone: Comment on above: PATIENT NOT FASTINGP ERFORMED BY: ORTIZ Ameya Kksmll3420 [facility] [id number] Information: 450048,G15291 Glucose mass conc 88 mg/dL Normal 65-99 Compreh ensive Internal Medicine Work Phone: Comment on above: PATIENT NOT FASTINGP ERFORMED BY: ORTIZ Ameya Vwmimv5187 [facility] [id number] Information: 450471,K06883 Potassium molar conc 4.6 mmol/L Normal 3.5-5.2 Comp [facility]eren[facility] Work Phone: Comment on above: PATIENT NOT FASTINGP ERFORMED BY: ORTIZ Ameya Scgyrr5826 [facility] [id number] Information: 194198,H99811 Protein mass conc 6.9 g/dL Normal 6.0-8.5 Compreh ensive Internal Medicine Work Phone: Comment on above: PATIENT NOT FASTINGP ERFORMED BY: ORTIZ MeenaEvelyn [place] [id number] [facility] [id number] Information: 781251,[id number] Sodium molar conc 140 mmol/L Normal 135-145 Compreh ensive Internal Medicine Work Phone: Comment on above: PATIENT NOT FASTINGP ERFORMED BY: ORTIZ Ameya Lskhbb4881 [facility] [id number] Information: 281823,[id number] Urea nitrogen mass conc 9 mg/dL Normal 8-27 [facility] Work Phone: Comment on above: PATIENT NOT FASTINGP ERFORMED BY: ORTIZ [facility] Vmizdf8022 Rodriguez RoadDublin [place] [id number] Information: 456446,X69857 Urea nitrogen/Creatinine mass ratio 13 mg/mg Normal 11- [facility] Work Phone: Comment on above: PATIENT NOT FASTINGP ERFORMED BY: ORTIZ [facility] Rsqpkw7486 Rodriguez Roadblin [place] [id number] Information: [id number],L67072 TSH (92751)Ordered By: Syste m Rn Diabetes Educator on 10-14-2010 Thyrotropin Qn 1.320 {uIU/mL} Normal 0.450-4.50 0 [facility] Work Phone: Comment on above: PATIENT NOT FASTINGP ERFORMED BY: ORTIZ [facility] Bfruat0391 Rodriguez Roadblin [place] [id number] URINALYSIS W/O MICRO (58489) Ordered By: Care Attendant on 10-14-2010 Appearance Nom (U) Clear Normal Compre hensive Internal Medicine Work Phone: Comment on above: PATIENT NOT FASTINGP ERFORMED BY: ORTIZ [facility] Sbfahl8900 [address] RoadDublin [place] [id number] Bilirubin Ql (U) Negative Normal Comprehe nsive Internal Medicine Work Phone: Comment on above: PATIENT NOT FASTINGP ERFORMED BY: ORTIZ [facility] Iiazaz0409 [address] RoadDublin [place] [id number] Color Nom (U) Yellow Normal Comprehensi ve Internal Medicine Work Phone: Comment on above: PATIENT NOT FASTINGP ERFORMED BY: [facility] Fwlftb0834 Rodriguez RoadDublin [place] [id number] Glucose Ql (U) Negative Normal Comprehens trupti Internal Medicine Work Phone: Comment on above: PATIENT NOT FASTINGP ERFORMED BY: ORTIZ [facility] Owofov3822 [address] RoadDublin [place] [id number] Hemoglobin Ql (U) Negative Normal Compreh ensive Internal Medicine Work Phone: Comment on above: PATIENT NOT FASTINGP ERFORMED BY: ORTIZ [facility] Tcvaeh5492 [address] RoadDublin [place] [id number] Ketones Ql (U) Negative Normal Comprehens trupti Internal Medicine Work Phone: Comment on above: PATIENT NOT FASTINGP ERFORMED BY: ORTIZ MeenaAleksandr CroweBvqylr9125 [facility] [id number] Leukocyte esterase Test strip Ql (U) Negative Normal [facility] Work Phone: Comment on above: PATIENT NOT FASTINGP ERFORMED BY: ORTIZ Chester6370 [facility] [id number] Microscopic observation LM Nom (Urine sed) MICRON Normal [facility] Work Phone: Comment on above: Microscopic follows if indicated. PATIENT NOT FASTINGP ERFORMED BY: ORTIZ Crowelin6370 [facility] [id number] Nitrite Ql (U) Negative Normal Comprehens trupti Internal Medicine Work Phone: Comment on above: PATIENT NOT FASTINGP ERFORMED BY: ORTIZ Crowelin6370 [facility] [id number] pH (U) 6.5 [pH] Normal 5.0-7.5 [facility] Work Phone: Comment on above: PATIENT NOT FASTINGP ERFORMED BY: ORTIZ Crowelin6370 [facility] [id number] Protein Ql (U) Negative Normal Comprehens trupti Internal Medicine Work Phone: Comment on above: PATIENT NOT FASTINGP ERFORMED BY: ORTIZ Crowelin6370 [facility] [id number] Specific gravity Relative Density (U) 1.020 1 Normal 1.005-1.03 0 [facility] Work Phone: Comment on above: PATIENT NOT FASTINGP ERFORMED BY: ORTIZ Crowelin6370 [facility] [id number] Urobilinogen Test strip mass conc (U) 0.2 mg/dL Normal 0.0-1.9 Comprehensiv e Internal Medicine Work Phone: Comment on above: PATIENT NOT FASTINGP ERFORMED BY: ORTIZ Chester6370 [facility]in [place] [id number] VITAMIN B-12 (CYANOCOBALAMIN ) (93161)Ordered By: Care Attendant on 10-14-2010 Cobalamin (Vitamin B12) mass conc 246 pg/mL Normal 211-946 [facility] Work Phone: Comment on above: PATIENT NOT FASTINGP ERFORMED BY: ORTIZ Hou Mhcxky6148 [facility] [id number] LIPID PANEL (25255)Ordered B y: Care Attendant on 12-14-2009 Cholesterol in HDL mass conc 54 mg/dL Normal [facility] Work Phone: Comment on above: According to ATP-III Guidelines, HDL-C >59 mg/dL is considered anegative risk factor for CHD. PATIENT WAS FASTINGP ERFORMED BY: ORTIZ Hou Lunnth2035 [facility] [id number] Information: 194241,I56000 Cholesterol in LDL mass conc 111 mg/dL Abnormal 0-99 [facility] Work Phone: Comment on above: PATIENT WAS FASTINGP ERFORMED BY: ORTIZ Hou Ybdmxl0483 [facility] [id number] Information: 400032,H03014 Cholesterol in LDL/Cholesterol in HDL mass ratio 2.1 {ratio_units} Normal 0.0-3.2 [facility] Work Phone: Comment on above: PATIENT WAS FASTINGP ERFORMED BY: ORTIZ Hou Jxesbu4037 [facility] [id number] Information: 124450,[id number] Cholesterol in VLDL mass conc 21 mg/dL Normal 5-40 [facility] Work Phone: Comment on above: PATIENT WAS FASTINGP ERFORMED BY: ORTIZ Hou Jqaigp1948 [facility] [id number] Information: 463044,J05939 Cholesterol mass conc 186 mg/dL Normal 100-199 [facility] prehensive Internal Medicine Work Phone: Comment on above: PATIENT WAS FASTINGP ERFORMED BY: LabCoKindred Hospital at MorrisCyhjvx8694 [facility] [id number] Information: 557131,B58764 Triglyceride mass conc 103 mg/dL Normal 0-149 [facility]ensive [facility] Work Phone: Comment on above: PATIENT WAS FASTINGP ERFORMED BY: [place] 9063870 [facility] [id number] Information: [id number],[id number] TSH (33611)Ordered By: Syste m Rn Diabetes Educator on 12-14-2009 Thyrotropin Qn 1.680 {uIU/mL} Normal 0.450-4.50 0 [facility] Work Phone: Comment on above: PATIENT WAS FASTINGP ERFORMED BY: [facility]6370 [facility] [id number] CBC WITH MANUAL DIFF (16412) Ordered By: Care Attendant on 12-13-2009 Basophils #/vol (Bld) 0.0 {x10E3/uL} Normal 0.0-0.2 [facility] Work Phone: Comment on above: PATIENT NOT FASTINGP ERFORMED BY: LabEvelyn Ville 0715770 [facility] [id number] Information: 042661,V53790 Basophils/100 WBC (Bld) 0 % Normal 0-3 [facility] Work Phone: Comment on above: PATIENT NOT FASTINGP ERFORMED BY: [facility]6370 [facility] [id number] Information: 279769,K13536 Eosinophils #/vol (Bld) 0.0 {x10E3/uL} Normal 0.0-0.4 [facility] Work Phone: Comment on above: PATIENT NOT FASTINGP ERFORMED BY: LabAsc[facility]6370 [facility] [id number] Information: 493290,Y06382 Eosinophils/100 WBC (Bld) 0 % Normal 0-7 [facility] Work Phone: Comment on above: PATIENT NOT FASTINGP ERFORMED BY: ORTIZ Hou Bjceco6631 [facility] [id number] Information: [id number],Y47085 Erythrocyte distribution width Ratio (RBC) 13.9 % Normal 11.7-15.0 [facility] Work Phone: Comment on above: PATIENT NOT FASTINGP ERFORMED BY: ORTIZ Robledo[address] [id number] Information: 409878,V23550 Hematocrit Volume Fraction (Bld) 38.9 % Normal 34.0-44.0 [facility] Work Phone: Comment on above: PATIENT NOT FASTINGP ERFORMED BY: ORTIZ Hou Gqjdkj3923 [facility] [id number] Information: 003952,F38748 Hemoglobin mass conc (Bld) 13.7 g/dL Normal 11.5-15.0 [facility] Work Phone: Comment on above: PATIENT NOT FASTINGP ERFORMED BY: ORTIZ RobledoEvelyn [place] 0715770 [facility] [id number] Information: 774698,H91469 Lymphocytes #/vol (Bld) 1.3 {x10E3/uL} Normal 0.7-4.5 [facility] Work Phone: Comment on above: PATIENT NOT FASTINGP ERFORMED BY: ORTIZ [address] [id number] Information: 438102,W40925 Lymphocytes/100 WBC (Bld) 20 % Normal 14-46 [facility] Work Phone: Comment on above: PATIENT NOT FASTINGP ERFORMED BY: ORTIZ RobledoEvelyn [place] 0715770 [facility] [id number] Information: 585966,A09254 MCH Entitic mass (RBC) 31.3 pg Normal 27.0-34.0 [facility] Internal [facility] Work Phone: Comment on above: PATIENT NOT FASTINGP ERFORMED BY: ORTIZ RobledoCo Vjryqy9066 [address] [facility] [id number] Information: 984971,P48554 MCHC mass conc (RBC) 35.2 g/dL Normal 32.0-36.0 [facility] Internal Medicine Work Phone: Comment on above: PATIENT NOT FASTINGP ERFORMED BY: ORTIZ [facility] Fwfhim0278 [address] [facility] [id number] Information: 636755,J08548 MCV Entitic volume (RBC) 89 fL Normal 80-98 [facility] Work Phone: Comment on above: PATIENT NOT FASTINGP ERFORMED BY: ORTIZ Hou Dnpprk3409 [facility] [id number] Information: 960632,M42836 Monocytes #/vol (Bld) 0.4 {x10E3/uL} Normal 0.1-1.0 [facility] Work Phone: Comment on above: PATIENT NOT FASTINGP ERFORMED BY: [facility] Sxbcqn6553 [facility] [id number] Information: 066532,W31350 Monocytes/100 WBC (Bld) 6 % Normal 4-13 [facility] Work Phone: Comment on above: PATIENT NOT FASTINGP ERFORMED BY: MeenaCoKindred Hospital at MorrisWkijaa2258 [facility] [id number] Information: 535578,W65512 Neutrophils #/vol (Bld) 5.0 {x10E3/uL} Normal 1.8-7.8 [facility] Work Phone: Comment on above: PATIENT NOT FASTINGP ERFORMED BY: ORTIZ LabCoKindred Hospital at MorrisYqodtp2991 [facility] [id number] Information: 968542,Y98115 Neutrophils/100 WBC (Bld) 74 % Normal 40-74 [facility] Work Phone: Comment on above: PATIENT NOT FASTINGP ERFORMED BY: LabCoRaymond Ville 4387170 [facility] [id number] Information: 496426,[id number] Platelets #/vol (Bld) 228 {x10E3/uL} Normal 140-415 [facility] Work Phone: Comment on above: PATIENT NOT FASTINGP ERFORMED BY: ORTIZ Chester6370 [facility] [id number] Information: [id number] RBC #/vol (Bld) 4.38 {x10E6/uL} Normal 3.80-5.10 Comp [facility] centerensive [facility] Work Phone: Comment on above: PATIENT NOT FASTINGP ERFORMED BY: ORTIZ Nilda Chester6370 [facility] [id number] Information: [id number],W38992 WBC #/vol (Bld) 6.7 {x10E3/uL} Normal 4.0-10.5 [facility] Work Phone: Comment on above: PATIENT NOT FASTINGP ERFORMED BY: ORTIZ Ameya Tblvyi4755 [facility] [id number] Information: 209155,Q25595 METABOLIC PANEL, COMPREHENSI VE (14009)Ordered By: Care Attendant on 12-13-2009 Albumin mass conc 4.1 g/dL Normal 3.5-4.8 Compreh [facility] Internal Medicine Work Phone: Comment on above: PATIENT NOT FASTINGP ERFORMED BY: ORTIZ Hou Sxljey2361 [facility] [id number] Albumin/Globulin mass ratio 1.7 {ratio} Normal 1.1-2.5 [facility] Work Phone: Comment on above: PATIENT NOT FASTINGP ERFORMED BY: ORTIZ LabKellie Edeasz9687 [facility] [id number] ALP enzyme act/vol 82 [iU]/L Normal 25-165 Compre [facility] Internal Medicine Work Phone: Comment on above: PATIENT NOT FASTINGP ERFORMED BY: ORTIZ Lab[facility] Lamqge9826 [facility] [id number] ALT enzyme act/vol 12 [iU]/L Normal 0-40 Compre [facility] Internal Medicine Work Phone: Comment on above: PATIENT NOT FASTINGP ERFORMED BY: CB [facility] Ebetkn7981 Rodriguez RoadDublin [place] [id number] AST enzyme act/vol 19 [iU]/L Normal 0-40 Compre [facility] Internal Medicine Work Phone: Comment on above: PATIENT NOT FASTINGP ERFORMED BY: CB [facility] Jdwdbk8970 [address] Roadblin [place] [id number] Bilirubin mass conc 0.2 mg/dL Normal 0.1-1.2 Compr ensive Internal Medicine Work Phone: Comment on above: PATIENT NOT FASTINGP ERFORMED BY: CB [facility] Ndqzjw3235 [address] RoadFormerly [facility] Carein [place] [id number] Calcium mass conc 9.6 mg/dL Normal 8.6-10.2 Compreh [facility] hospitalive [facility] Medicine Work Phone: Comment on above: PATIENT NOT FASTINGP ERFORMED BY: CB [facility] Cirdnx3901 [address] RoadFormerly [facility] Carein [place] [id number] Chloride molar conc 104 mmol/L Normal 97-108 Compr [facility] Internal Medicine Work Phone: Comment on above: PATIENT NOT FASTINGP ERFORMED BY: CB [facility] Lpdekh7299 [address] [facility]in [place] [id number] CO2 molar conc 25 mmol/L Normal 20-32 Comprehens trupti Internal Medicine Work Phone: Comment on above: PATIENT NOT FASTINGP ERFORMED BY: CB [facility] Llmpdc0226 Rodriguez RoadDublin [place] [id number] Creatinine mass conc 0.71 mg/dL Normal 0.57-1.00 Comp [facility] centerensive [facility] Work Phone: Comment on above: PATIENT NOT FASTINGP ERFORMED BY: CB [facility] Hdgibu8682 [address] RoadDublin [place] [id number] GFR/1.73 sq M predicted among blacks MDRD [...] PATIENT NOT FASTINGP ERFORMED BY: CB [facility] Vvjlxy5177 [address] RoadDublin [place] [id number] GFR/1.73 sq M.predicted MDRD (S/P/Bld) [Vol rate/Area] mL/min/{1.73_m2} Normal [facility] Work Phone: Comment on above: PATIENT NOT FASTINGP ERFORMED BY: CB [facility] Jwmmol9534 [address] RoadDublin [place] [id number] GFR/1.73 sq M.predicted MDRD vol rate/area mL/min/{1.73_m2} Normal [facility] Work Phone: Comment on above: PATIENT NOT FASTINGP ERFORMED BY: CB [facility] Indyvc3405 [address] RoadDublin [place] [id number] Globulin mass conc (S) 2.4 g/dL Normal 1.5-4.5 [facility] Work Phone: Comment on above: PATIENT NOT FASTINGP ERFORMED BY: CB [facility] Sryonp1353 [address] Roadblin [place] [id number] Glucose mass conc 89 mg/dL Normal 65-99 Compreh ensive Internal Medicine Work Phone: Comment on above: PATIENT NOT FASTINGP ERFORMED BY: CB [facility] Vjdhzp0235 [address] RoadDublin [place] [id number] Potassium molar conc 5.0 mmol/L Normal 3.5-5.2 Comp [facility]erensive [facility] Work Phone: Comment on above: PATIENT NOT FASTINGP ERFORMED BY: CB [facility] Xpayga4208 [address] RoadDublin [place] [id number] Protein mass conc 6.5 g/dL Normal 6.0-8.5 Compreh ensive Internal Medicine Work Phone: Comment on above: PATIENT NOT FASTINGP ERFORMED BY: ORTIZ [facility] Icrmza6875 [address] [facility]icTacTiBets[facility] [id number] Sodium molar conc 142 mmol/L Normal 135-145 Compreh ensive Internal Medicine Work Phone: Comment on above: PATIENT NOT FASTINGP ERFORMED BY: ORTIZ [facility] Rcoigv0217 [address] TicTacTiBetsy [facility] [id number] Urea nitrogen mass conc 10 mg/dL Normal 5- [facility] Work Phone: Comment on above: PATIENT NOT FASTINGP ERFORMED BY: ORTIZ [facility] Nfvekt4517 [address] TicTacTiBetsy [facility] [id number] Urea nitrogen/Creatinine mass ratio 14 mg/mg Normal 8- [facility] Work Phone: Comment on above: PATIENT NOT FASTINGP ERFORMED BY: ORTIZ [facility] Byndgr2646 [address] TicTacTiBetsy [facility] [id number] Urinalysis, Office ([id number])Or dered By: Radha Velez on 09-21-2008 Bilirubin [...] Bacteria identified Cx Nom (U) Escherichia coli [facility] Work Phone: Vital Signs Date Time Vital Sign Value Performing Clinician Facility 06-28-2025 23:29-0400 Body temperature 98 [degF] Dr. Yesika Faust MD Work Phone: [facility] 06-28-2025 23:29-0400 Diastolic blood pressure 89 mm[Hg] Dr. Yesika Faust MD Work Phone: [facility] 06-28-2025 23:29-0400 Heart rate 65 /min Dr. Yesika Faust MD Work Phone: [facility] 06-28-2025 23:29-0400 Respiratory rate 18 /min Dr. Yesika Faust MD Work Phone: [facility] 06-28-2025 23:29-0400 SaO2% (BldA) [Mass fraction] 94 % Dr. Yesika Faust MD Work Phone: [facility] 06-28-2025 23:29-0400 Systolic blood pressure 129 mm[Hg] Dr. Yesika Faust MD Work Phone: [facility] 06-28-2025 19:24-0400 Body height 157.[address] Yesika Faust MD Work Phone: [facility] 03-02-2025 18:29-0400 Body height 157.[address] Yesika Faust MD Work Phone: [facility] 05-05-2019 10:14-0400 BMI (Body Mass Index) 33.02 kg/m2 Mirella [facility] Internal Medicine Work Phone: 05-05-2019 10:14-0400 Body weight 74.16 kg Mirella [facility] Internal Medicine Work Phone: 05-05-2019 10:14-0400 BP Diastolic 80 mm[Hg] Mirella [facility] Internal Medicine Work Phone: Comment on above: Patient Position: Sitting; Cuff Location : Left Arm; Cuff Size: Large 05-05-2019 10:14-0400 BP Systolic 138 mm[Hg] Mirella [facility] Internal Medicine Work Phone: Comment on above: Patient Position: Sitting; Cuff Location : Left Arm; Cuff Size: Large 05-05-2019 10:14-0400 BSA (Body Surface Area) 1.69 m2 Mirella [facility] Internal Medicine Work Phone: 05-05-2019 10:14-0400 Height 149.86 cm Mirella [facility] Internal Medicine Work Phone: 05-05-2019 10:14-0400 Pulse (Heart Rate) 68 /min Mirella [facility] Internal Medicine Work Phone: Comment on above: Pattern: Regular 05-05-2019 10:14-0400 Pulse Oximetry 95 % Mirella [facility] Internal Medicine Work Phone: Comment on above: Room air 05-05-2019 10:14-0400 Respiratory Rate 18 /min Mirella [facility] Internal Medicine Work Phone: Comment on above: Pattern: Unlabored 03-15-2019 09:59-0400 BMI (Body Mass Index) 33.4 kg/m2 Mirella [facility] Internal Medicine Work Phone: 03-15-2019 09:59-0400 Body weight 75.01 kg Mirella [facility] Internal Medicine Work Phone: 03-15-2019 09:59-0400 BP Diastolic 82 mm[Hg] Mirella [facility] Internal Medicine Work Phone: Comment on above: Patient Position: Sitting; Cuff Location : Left Arm; Cuff Size: Large 03-15-2019 09:59-0400 BP Systolic 168 mm[Hg] Mirella [facility] Internal Medicine Work Phone: Comment on above: Patient Position: Sitting; Cuff Location : Left Arm; Cuff Size: Large 03-15-2019 09:59-0400 BSA (Body Surface Area) 1.7 m2 Mirella [facility] Internal Medicine Work Phone: 03-15-2019 09:59-0400 Height 149.86 cm Mirella [facility] Internal Medicine Work Phone: 03-15-2019 09:59-0400 Pulse (Heart Rate) 88 /min Mirella [facility] Internal Medicine Work Phone: Comment on above: Pattern: Regular 03-15-2019 09:59-0400 Pulse Oximetry 98 % Mirella [facility] Internal Medicine Work Phone: Comment on above: Room air 03-15-2019 09:59-0400 Respiratory Rate 18 /min Mirella [facility] Internal Medicine Work Phone: Comment on above: Pattern: Unlabored 01-21-2018 08:25-0400 BMI (Body Mass Index) 29.34 kg/m2 Mirella Mccracken [facility] Internal Medicine Work Phone: 01-21-2018 08:25-0400 Body weight 65.89 kg Mirella [facility] Internal Medicine Work Phone: 01-21-2018 08:25-0400 BP Diastolic 84 mm[Hg] Mirella [facility] Internal Medicine Work Phone: Comment on above: Patient Position: Sitting; Cuff Location : Left Arm; Cuff Size: Large 01-21-2018 08:25-0400 BP Systolic 128 mm[Hg] Mirella [facility] Internal Medicine Work Phone: Comment on above: Patient Position: Sitting; Cuff Location : Left Arm; Cuff Size: Large 01-21-2018 08:25-0400 BSA (Body Surface Area) 1.61 m2 Mirella [facility] Internal Medicine Work Phone: 01-21-2018 08:25-0400 Height 149.86 cm [facility] Work Phone: 01-21-2018 08:25-0400 Pulse (Heart Rate) 84 /min Mirella [facility] Internal Medicine Work Phone: Comment on above: Pattern: Regular 01-21-2018 08:25-0400 Pulse Oximetry 98 % Mirella [facility] Internal Medicine Work Phone: Comment on above: Room air 01-21-2018 08:25-0400 Respiratory Rate 18 /min Mirella [facility] Internal Medicine Work Phone: Comment on above: Pattern: Unlabored 01-21-2018 08:25-0400 Weight 65.89 kg Mirella [facility] Internal Medicine Work Phone: 11-09-2017 14:35-0500 BMI (Body Mass Index) 28.91 kg/m2 Mirella Mccracken [facility] Internal Medicine Work Phone: 11-09-2017 14:35-0500 Body weight 64.92 kg Mirella [facility] Internal Medicine Work Phone: 11-09-2017 14:35-0500 BP Diastolic 90 mm[Hg] Mirella [facility] Internal Medicine Work Phone: Comment on above: Patient Position: Sitting; Cuff Location : Left Arm; Cuff Size: Large 11-09-2017 14:35-0500 BP Systolic 148 mm[Hg] Mirella [facility] Internal Medicine Work Phone: Comment on above: Patient Position: Sitting; Cuff Location : Left Arm; Cuff Size: Large 11-09-2017 14:35-0500 BSA (Body Surface Area) 1.6 m2 Mirella [facility] Internal Medicine Work Phone: 11-09-2017 14:35-0500 Height 149.86 cm Mirella [facility] Internal Medicine Work Phone: 11-09-2017 14:35-0500 Pulse (Heart Rate) 67 /min Mirella [facility] Internal Medicine Work Phone: Comment on above: Pattern: Regular 11-09-2017 14:35-0500 Pulse Oximetry 98 % Mirella [facility] Internal Medicine Work Phone: Comment on above: Room air 11-09-2017 14:35-0500 Respiratory Rate 18 /min Mirella [facility] Internal Medicine Work Phone: Comment on above: Pattern: Unlabored 11-09-2017 14:35-0500 Weight 64.92 kg Mirella [facility] Internal Medicine Work Phone: 10-15-2017 09:58-0500 BMI (Body Mass Index) 28.91 kg/m2 Mirella Mccracken [facility] Internal Medicine Work Phone: 10-15-2017 09:58-0500 Body weight 64.92 kg Mirella [facility] Internal Medicine Work Phone: 10-15-2017 09:58-0500 BP Diastolic 78 mm[Hg] Mirella [facility] Internal Medicine Work Phone: Comment on above: Patient Position: Sitting; Cuff Location : Left Arm; Cuff Size: Large 10-15-2017 09:58-0500 BP Systolic 146 mm[Hg] Mirella [facility] Internal Medicine Work Phone: Comment on above: Patient Position: Sitting; Cuff Location : Left Arm; Cuff Size: Large 10-15-2017 09:58-0500 BSA (Body Surface Area) 1.6 m2 Mirella [facility] Internal Medicine Work Phone: 10-15-2017 09:58-0500 Height 149.86 cm Mirella [facility] Medicine Work Phone: 10-15-2017 09:58-0500 Pulse (Heart Rate) 74 /min Mirella [facility] Internal Medicine Work Phone: Comment on above: Pattern: Regular 10-15-2017 09:58-0500 Pulse Oximetry 99 % Mirella [facility] Internal Medicine Work Phone: Comment on above: Room air 10-15-2017 09:58-0500 Respiratory Rate 18 /min Mirella [facility] Internal Medicine Work Phone: Comment on above: Pattern: Unlabored 10-15-2017 09:58-0500 Weight 64.92 kg Mirella [facility] Internal Medicine Work Phone: 09-18-2017 09:08-0500 BMI (Body Mass Index) 28.91 kg/m2 Mirella Mccracken [facility] Internal Medicine Work Phone: 09-18-2017 09:08-0500 Body weight 64.92 kg Mirella [facility] Internal Medicine Work Phone: 09-18-2017 09:08-0500 BP Diastolic 82 mm[Hg] Mirella [facility] Internal Medicine Work Phone: Comment on above: Patient Position: Sitting; Cuff Location : Left Arm; Cuff Size: Large 09-18-2017 09:08-0500 BP Systolic 128 mm[Hg] Mirella [facility] Internal Medicine Work Phone: Comment on above: Patient Position: Sitting; Cuff Location : Left Arm; Cuff Size: Large 09-18-2017 09:08-0500 BSA (Body Surface Area) 1.6 m2 Mirella [facility] Internal Medicine Work Phone: 09-18-2017 09:08-0500 Height 149.86 cm Mirella [facility] Medicine Work Phone: 09-18-2017 09:08-0500 Pulse (Heart Rate) 72 /min Mirella [facility] Internal Medicine Work Phone: Comment on above: Pattern: Regular 09-18-2017 09:08-0500 Pulse Oximetry 98 % Mirella [facility] Internal Medicine Work Phone: Comment on above: Room air 09-18-2017 09:08-0500 Respiratory Rate 18 /min Mirella [facility] Medicine Work Phone: Comment on above: Pattern: Unlabored 09-18-2017 09:08-0500 Weight 64.92 kg Mirella [facility] Internal Medicine Work Phone: 06-05-2017 [...] 06-05-2017 11:24-0400 Pulse (Heart Rate) 72 /min [facility] Work Phone: 06-05-2017 11:24-0400 Respiratory Rate 18 /min [facility] Work Phone: 06-05-2017 11:24-0400 Weight 64.41 kg [facility] Work Phone: 05-07-2017 11:04-0400 BMI (Body Mass Index) 29.29 kg/m2 Mirella Mccracken [facility] Internal Medicine Work Phone: 05-07-2017 11:04-0400 Body weight 65.77 kg Mirella [facility] Work Phone: 05-07-2017 11:04-0400 BP Diastolic 82 mm[Hg] Mirella [facility] Work Phone: Comment on above: Patient Position: Sitting; Cuff Location : Left Arm; Cuff Size: Standard 05-07-2017 11:04-0400 BP Systolic 128 mm[Hg] Mirella [facility] Work Phone: Comment on above: Patient Position: Sitting; Cuff Location : Left Arm; Cuff Size: Standard 05-07-2017 11:04-0400 BSA (Body Surface Area) 1.61 m2 Mirella [facility] Work Phone: 05-07-2017 11:04-0400 Height 149.86 cm Mirella [facility] Work Phone: 05-07-2017 11:04-0400 Pulse (Heart Rate) 65 /min Mirella [facility] Medicine Work Phone: Comment on above: Pattern: Regular 05-07-2017 11:04-0400 Pulse Oximetry 98 % Mirella [facility] Work Phone: Comment on above: Room air 05-07-2017 11:04-0400 Respiratory Rate 18 /min Mirella [facility] Work Phone: Comment on above: Pattern: Unlabored 05-07-2017 11:04-0400 Weight 65.77 kg Mirella [facility] Work Phone: 03-26-2017 08:06-0400 BMI (Body Mass Index) 29.29 kg/m2 Mirella Mccracken [facility] Internal Medicine Work Phone: 03-26-2017 08:06-0400 Body Temperature 97.5 [degF] Mirella [facility] Internal Medicine Work Phone: Comment on above: Method: Temporal 03-26-2017 08:06-0400 Body weight 65.77 kg Mirella [facility] Medicine Work Phone: 03-26-2017 08:06-0400 BP Diastolic 84 mm[Hg] Mirella [facility] Work Phone: Comment on above: Patient Position: Sitting; Cuff Location : Left Arm; Cuff Size: Large 03-26-2017 08:06-0400 BP Systolic 126 mm[Hg] Mirella [facility] Work Phone: Comment on above: Patient Position: Sitting; Cuff Location : Left Arm; Cuff Size: Large 03-26-2017 08:06-0400 BSA (Body Surface Area) 1.61 m2 Mirella [facility] Work Phone: 03-26-2017 08:06-0400 Height 149.86 cm Mirella [facility] Work Phone: 03-26-2017 08:06-0400 Pulse (Heart Rate) 82 /min Mirella [facility] Work Phone: Comment on above: Pattern: Regular 03-26-2017 08:06-0400 Pulse Oximetry 98 % Mirella [facility] Work Phone: Comment on above: Room air 03-26-2017 08:06-0400 Respiratory Rate 16 /min Mirella [facility] Work Phone: Comment on above: Pattern: Unlabored 03-26-2017 08:06-0400 Weight 65.77 kg Mirella [facility] Work Phone: 12-25-2016 10:08-0400 BMI (Body Mass Index) 29.51 kg/m2 Mirella Mccracken [facility] Internal Medicine Work Phone: 12-25-2016 10:08-0400 Body weight 66.28 kg Mirella [facility] Medicine Work Phone: 12-25-2016 10:08-0400 BP Diastolic 80 mm[Hg] Mirella [facility] Work Phone: Comment on above: Patient Position: Sitting; Cuff Location : Left Arm; Cuff Size: Large 12-25-2016 10:08-0400 BP Systolic 122 mm[Hg] Mirella [facility] Internal Medicine Work Phone: Comment on above: Patient Position: Sitting; Cuff Location : Left Arm; Cuff Size: Large 12-25-2016 10:08-0400 BSA (Body Surface Area) 1.61 m2 Mirella [facility] Internal Medicine Work Phone: 12-25-2016 10:08-0400 Height 149.86 cm Mirella [facility] Medicine Work Phone: 12-25-2016 10:08-0400 Pulse (Heart Rate) 69 /min Mirella [facility] Medicine Work Phone: Comment on above: Pattern: Regular 12-25-2016 10:08-0400 Pulse Oximetry 98 % Mirella [facility] Internal Medicine Work Phone: Comment on above: Room air 12-25-2016 10:08-0400 Respiratory Rate 18 /min Mirella [facility] Internal Medicine Work Phone: Comment on above: Pattern: Unlabored 12-25-2016 10:08-0400 Weight 66.28 kg Mirella [facility] Internal Medicine Work Phone: 11-03-2016 14:09-0500 BSA (Body Surface Area) 1.59 m2 Hung [facility] Work Phone: 09-25-2016 07:51-0500 BMI (Body Mass Index) 29.94 kg/m2 Mirella Mccracken [facility] Internal Medicine Work Phone: 09-25-2016 07:51-0500 Body Temperature 97.6 [degF] Mirella [facility] Work Phone: 09-25-2016 07:51-0500 Body weight 67.25 kg Mirella [facility] Medicine Work Phone: 09-25-2016 07:51-0500 BP Diastolic 78 mm[Hg] Mirella [facility] Work Phone: Comment on above: Patient Position: Sitting; Cuff Location : Left Arm; Cuff Size: Standard 09-25-2016 07:51-0500 BP Systolic 122 mm[Hg] Mirella [facility] Work Phone: Comment on above: Patient Position: Sitting; Cuff Location : Left Arm; Cuff Size: Standard 09-25-2016 07:51-0500 BSA (Body Surface Area) 1.62 m2 Mirella [facility] Work Phone: 09-25-2016 07:51-0500 Height 149.86 cm Mirella [facility] Work Phone: 09-25-2016 07:51-0500 Pulse (Heart Rate) 94 /min Mirella [facility] Work Phone: Comment on above: Pattern: Regular 09-25-2016 07:51-0500 Pulse Oximetry 96 % Mirella [facility] Work Phone: Comment on above: Room air 09-25-2016 07:51-0500 Respiratory Rate 17 /min Mirella [facility] Work Phone: Comment on above: Pattern: Unlabored 09-25-2016 07:51-0500 Weight 67.25 kg Mirella [facility] Work Phone: 06-25-2016 08:52-0400 BMI (Body Mass Index) 29.54 kg/m2 Mirella Mccracken [facility] Internal Medicine Work Phone: 06-25-2016 08:52-0400 Body weight 66.34 kg Mirella [facility] Work Phone: 06-25-2016 08:52-0400 BP Diastolic 60 mm[Hg] Mirella [facility] Work Phone: Comment on above: Patient Position: Sitting; Cuff Location : Left Arm; Cuff Size: Standard 06-25-2016 08:52-0400 BP Systolic 110 mm[Hg] Mirella [facility] Work Phone: Comment on above: Patient Position: Sitting; Cuff Location : Left Arm; Cuff Size: Standard 06-25-2016 08:52-0400 BSA (Body Surface Area) 1.61 m2 Mirella [facility] Work Phone: 06-25-2016 08:52-0400 Height 149.86 cm Mirella [facility] Work Phone: 06-25-2016 08:52-0400 Pulse (Heart Rate) 72 /min Mirella [facility] Work Phone: Comment on above: Pattern: Regular 06-25-2016 08:52-0400 Pulse Oximetry 100 % Mirella [facility] Work Phone: Comment on above: Room air 06-25-2016 08:52-0400 Respiratory Rate 18 /min Mirella [facility] Work Phone: Comment on above: Pattern: Unlabored 06-25-2016 08:52-0400 Weight 66.34 kg Mirella [facility] Work Phone: 05-21-2016 08:08-0400 BMI (Body Mass Index) 29.39 kg/m2 Mirella Mccracken [facility] Internal Medicine Work Phone: 05-21-2016 08:08-0400 Body Temperature 97.2 [degF] Mirella [facility] Work Phone: 05-21-2016 08:08-0400 Body weight 66 kg Mirella [facility] Work Phone: 05-21-2016 08:08-0400 BP Diastolic 82 mm[Hg] Mirella [facility] Work Phone: Comment on above: Patient Position: Sitting; Cuff Location : Left Arm; Cuff Size: Standard 05-21-2016 08:08-0400 BP Systolic 124 mm[Hg] Mirella [facility] Work Phone: Comment on above: Patient Position: Sitting; Cuff Location : Left Arm; Cuff Size: Standard 05-21-2016 08:08-0400 BSA (Body Surface Area) 1.61 m2 Mirella [facility] Work Phone: 05-21-2016 08:08-0400 Height 149.86 cm Mirella [facility] Work Phone: 05-21-2016 08:08-0400 Pulse (Heart Rate) 80 /min Mirella [facility] Work Phone: Comment on above: Pattern: Regular 05-21-2016 08:08-0400 Pulse Oximetry 98 % Mirella [facility] Work Phone: Comment on above: Room air 05-21-2016 08:08-0400 Respiratory Rate 16 /min Mirella [facility] Work Phone: Comment on above: Pattern: Unlabored 05-21-2016 08:08-0400 Weight 66 kg Mirella [facility] Work Phone: 01-04-2016 09:52-0400 BMI (Body Mass Index) 29.59 kg/m2 Mirella [facility] Work Phone: 01-04-2016 09:52-0400 Body weight 66.45 kg Mirella [facility] [...] [facility] Work Phone: 01-04-2016 09:52-0400 Height 149.86 cm Mirella [facility] Work Phone: 01-04-2016 09:52-0400 Pulse (Heart Rate) 64 /min Mirella [facility] Work Phone: Comment on above: Pattern: Regular 01-04-2016 09:52-0400 Pulse Oximetry 97 % Mirella [facility] Work Phone: Comment on above: Room air 01-04-2016 09:52-0400 Respiratory Rate 18 /min Mirella [facility] Work Phone: Comment on above: Pattern: Unlabored 01-04-2016 09:52-0400 Weight 66.45 kg Mirella [facility] Work Phone: 12-06-2015 09:19-0400 BMI (Body Mass Index) 29.89 kg/m2 Mirella [facility] Work Phone: 12-06-2015 09:19-0400 Body weight 67.13 kg Mirella [facility] Work Phone: 12-06-2015 09:19-0400 BP Diastolic 78 mm[Hg] Mirella [facility] Work Phone: Comment on above: Patient Position: Sitting; Cuff Location : Left Arm; Cuff Size: Large 12-06-2015 09:19-0400 BP Systolic 122 mm[Hg] Mirella [facility] Work Phone: Comment on above: Patient Position: Sitting; Cuff Location : Left Arm; Cuff Size: Large 12-06-2015 09:19-0400 BSA (Body Surface Area) 1.62 m2 Mirella [facility] Work Phone: 12-06-2015 09:19-0400 Height 149.86 cm Mirella [facility] Work Phone: 12-06-2015 09:19-0400 Pulse (Heart Rate) 73 /min Mirella [facility] Work Phone: Comment on above: Pattern: Regular 12-06-2015 09:19-0400 Pulse Oximetry 99 % Mirella [facility] Work Phone: Comment on above: Room air 12-06-2015 09:19-0400 Respiratory Rate 18 /min Mirella [facility] Work Phone: Comment on above: Pattern: Unlabored 12-06-2015 09:19-0400 Weight 67.13 kg Mirella [facility] Work Phone: 11-29-2015 09:09-0400 BMI (Body Mass Index) 29.72 kg/m2 Mirella Mccracken [facility] Medicine Work Phone: 11-29-2015 09:09-0400 Body Temperature 98.2 [degF] Mirella [facility] Work Phone: Comment on above: Method: Oral 11-29-2015 09:09-0400 Body weight 66.74 kg Mirella [facility] Work Phone: 11-29-2015 09:09-0400 BP Diastolic 58 mm[Hg] Mirella [facility]ccrack[facility] Work Phone: Comment on above: Patient Position: Sitting; Cuff Location : Left Arm; Cuff Size: Large 11-29-2015 09:09-0400 BP Systolic 100 mm[Hg] Mirella Mccrack[facility] Work Phone: Comment on above: Patient Position: Sitting; Cuff Location : Left Arm; Cuff Size: Large 11-29-2015 09:09-0400 BSA (Body Surface Area) 1.62 m2 Mirella Mccracken [facility] Work Phone: 11-29-2015 09:09-0400 Height 149.86 cm Mirella [facility]ccrack[facility] Work Phone: 11-29-2015 09:09-0400 Pulse (Heart Rate) 71 /min Mirella [facility] Work Phone: Comment on above: Pattern: Regular 11-29-2015 09:09-0400 Pulse Oximetry 98 % Mirella [facility] Work Phone: Comment on above: Room air 11-29-2015 09:09-0400 Respiratory Rate 18 /min Mirella [facility] Work Phone: Comment on above: Pattern: Unlabored 11-29-2015 09:09-0400 Weight 66.74 kg Mirella [facility] Work Phone: 10-24-2015 10:01-0500 BMI (Body Mass Index) 30.78 kg/m2 Mirella Mccracken [facility] Medicine Work Phone: Comment on above: Dr. Goldstein and [facility] 10-24-2015 10:01-0500 Body weight 69.12 kg Mirella Mccrack[facility] Work Phone: Comment on above: Dr. Goldstein and had a glaucoma test donehe [facility] 10-24-2015 10:01-0500 BP Diastolic 82 mm[Hg] [facility] Work Phone: Comment on above: Patient Position: Sitting; Cuff Location : Left Arm; Cuff Size: Large Dr[facility] 10-24-2015 10:01-0500 BP Systolic 124 mm[Hg] [facility] Work Phone: Comment on above: Patient Position: Sitting; Cuff Location : Left Arm; Cuff Size: Large Dr[facility]stein [facility] 10-24-2015 10:01-0500 BSA (Body Surface Area) 1.64 m2 [facility] Work Phone: Comment on above: [facility] 10-24-2015 10:01-0500 Height 149.86 cm [facility] Work Phone: Comment on above: [facility] 10-24-2015 10:01-0500 Pulse (Heart Rate) 66 /min [facility] Work Phone: Comment on above: Pattern: Regular Dr[facility] Goldstein [facility] 10-24-2015 10:01-0500 Pulse Oximetry 98 % [facility] Work Phone: Comment on above: Room air Dr. Goldstein and had a glaucoma [facility] 10-24-2015 10:01-0500 Respiratory Rate 18 /min [facility] Internal Medicine Work Phone: Comment on above: Pattern: Unlabored Dr. Goldstein and had a glaucoma [facility] 10-24-2015 10:01-0500 Weight 69.12 kg [facility] Medicine Work Phone: Comment on above: Dr[facility] Goldstein [facility] 07-26-2015 10:22-0500 BMI (Body Mass Index) 32.32 kg/m2 [facility] Internal Medicine Work Phone: 07-26-2015 10:22-0500 Body weight 72.58 kg [facility] Internal Medicine Work Phone: 07-26-2015 10:22-0500 BP Diastolic 80 mm[Hg] [facility] Internal Medicine Work Phone: Comment on above: Patient Position: Sitting; Cuff Location : Left Arm; Cuff Size: Large 07-26-2015 10:22-0500 BP Systolic 138 mm[Hg] [facility] Internal Medicine Work Phone: Comment on above: Patient Position: Sitting; Cuff Location : Left Arm; Cuff Size: Large 07-26-2015 10:22-0500 BSA (Body Surface Area) 1.68 m2 [facility] Internal Medicine Work Phone: 07-26-2015 10:22-0500 Height 149.86 cm [facility] Internal Medicine Work Phone: 07-26-2015 10:22-0500 Pulse (Heart Rate) 62 /min [facility] Internal Medicine Work Phone: Comment on above: Pattern: Regular 07-26-2015 10:22-0500 Pulse Oximetry 98 % [facility] Internal Medicine Work Phone: Comment on above: Room air 07-26-2015 10:22-0500 Respiratory Rate 18 /min [facility] Internal Medicine Work Phone: Comment on above: Pattern: Unlabored 07-26-2015 10:22-0500 Weight 72.58 kg [facility] Internal Medicine Work Phone: 07-06-2015 09:03-0400 Body weight 72.12 kg [facility] Internal Medicine Work Phone: 07-06-2015 09:03-0400 BP Diastolic 78 mm[Hg] [facility] Internal Medicine Work Phone: Comment on above: Patient Position: Sitting; Cuff Location : Left Arm; Cuff Size: Large 07-06-2015 09:03-0400 BP Systolic 122 mm[Hg] [facility] Internal Medicine Work Phone: Comment on above: Patient Position: Sitting; Cuff Location : Left Arm; Cuff Size: Large 07-06-2015 09:03-0400 Pulse (Heart Rate) 68 /min [facility] Internal Medicine Work Phone: Comment on above: Pattern: Regular 07-06-2015 09:03-0400 Pulse Oximetry 98 % [facility] Internal Medicine Work Phone: Comment on above: Room air 07-06-2015 09:03-0400 Respiratory Rate 18 /min [facility] Internal Medicine Work Phone: Comment on above: Pattern: Unlabored 07-06-2015 09:03-0400 Weight 72.12 kg [facility] Internal Medicine Work Phone: 04-19-2015 10:10-0400 BMI (Body Mass Index) 31.02 kg/m2 Mirella [facility] Internal Medicine Work Phone: 04-19-2015 10:10-0400 Body Temperature 97.5 [degF] [facility] Internal Medicine Work Phone: Comment on above: Method: Temporal 04-19-2015 10:10-0400 Body weight 69.67 kg [facility] Internal Medicine Work Phone: 04-19-2015 10:10-0400 BP Diastolic 82 mm[Hg] [facility] Internal Medicine Work Phone: Comment on above: Patient Position: Sitting; Cuff Location : Left Arm; Cuff Size: Standard 04-19-2015 10:10-0400 BP Systolic 124 mm[Hg] [facility] Internal Medicine Work Phone: Comment on above: Patient Position: Sitting; Cuff Location : Left Arm; Cuff Size: Standard 04-19-2015 10:10-0400 BSA (Body Surface Area) 1.65 m2 [facility] Internal Medicine Work Phone: 04-19-2015 10:10-0400 Height 149.86 cm [facility] Internal Medicine Work Phone: 04-19-2015 10:100400 Pulse (Heart Rate) 62 /min [facility] Internal Medicine Work Phone: Comment on above: Pattern: Regular 04-19-2015 10:100400 Pulse Oximetry 98 % [facility] Internal Medicine Work Phone: Comment on above: Room air 04-19-2015 10:100400 Respiratory Rate 16 /min [facility] Internal Medicine Work Phone: Comment on above: Pattern: Unlabored 04-19-2015 10:100400 Weight 69.67 kg [facility] Internal Medicine Work Phone: 01-11-2015 10:29-0400 BMI (Body Mass Index) 31.2 kg/m2 Mirella Mccracken [facility] Internal Medicine Work Phone: 01-11-2015 10:29-0400 Body weight 70.08 kg [facility] Internal Medicine Work Phone: 01-11-2015 10:29-0400 BP Diastolic 80 mm[Hg] [facility] Internal Medicine Work Phone: Comment on above: Patient Position: Sitting; Cuff Location : Left Arm; Cuff Size: Standard 01-11-2015 10:29-0400 BP Systolic 128 mm[Hg] [facility] Internal Medicine Work Phone: Comment on above: Patient Position: Sitting; Cuff Location : Left Arm; Cuff Size: Standard 01-11-2015 10:29-0400 BSA (Body Surface Area) 1.65 m2 [facility] Internal Medicine Work Phone: 01-11-2015 10:29-0400 Height 149.86 cm [facility] Internal Medicine Work Phone: 01-11-2015 10:29-0400 Pulse (Heart Rate) 56 /min [facility] Internal Medicine [...] Standard 10-31-2014 11:54-0500 BP Systolic 116 mm[Hg] [facility] Medicine Work Phone: Comment [...] on above: Method: Oral [facility] 03/2014[facility] 10-12-2014 10:10-0500 Body weight 70.76 kg [facility] Medicine Work Phone: Comment on above: [facility] 03/2014[facility] 10-12-2014 10:10-0500 BP Diastolic 82 mm[Hg] [facility] Work Phone: Comment on above: Patient Position: Sitting; Cuff Location : Left Arm; Cuff Size: Large [facility] 03/2014[facility] 10-12-2014 10:10-0500 BP Systolic 132 mm[Hg] [facility] Work Phone: Comment on above: Patient Position: Sitting; Cuff Location : Left Arm; Cuff Size: Large [facility] 03/2014[facility] 10-12-2014 10:10-0500 Pulse (Heart Rate) 61 /min [facility] Work Phone: Comment on above: Pattern: Regular [facility] 03/2014[facility] 10-12-2014 10:10-0500 Pulse Oximetry 96 % [facility] Medicine Work Phone: Comment on above: Room air [facility] 03/2014[facility] 10-12-2014 10:10-0500 Respiratory Rate 18 /min [facility] Internal Medicine Work Phone: Comment on above: Pattern: Unlabored [facility] 03/2014[facility] 10-12-2014 10:10-0500 Weight 70.76 kg [facility] Medicine Work Phone: Comment on above: [facility] 03/2014[facility] 08-31-2014 11:25-0500 Body weight 68.66 kg [facility] Medicine Work Phone: 08-31-2014 11:25-0500 BP Diastolic 82 mm[Hg] [facility] Internal Medicine Work Phone: Comment on above: Patient Position: Sitting; Cuff Location : Left Arm; Cuff Size: Large 08-31-2014 11:25-0500 BP Systolic 138 mm[Hg] [facility] Internal Medicine Work Phone: Comment on above: Patient Position: Sitting; Cuff Location : Left Arm; Cuff Size: Large 08-31-2014 11:25-0500 Pulse (Heart Rate) 56 /min [facility] Internal Medicine Work Phone: Comment on above: Pattern: Regular 08-31-2014 11:25-0500 Respiratory Rate 18 /min [facility] Internal Medicine Work Phone: Comment on above: Pattern: Unlabored 08-31-2014 11:25-0500 Weight 68.66 kg [facility] Internal Medicine Work Phone: 08-14-2014 14:10-0500 Body Temperature 97.3 [degF] [facility] Internal Medicine Work Phone: Comment on above: Method: Oral 08-14-2014 14:10-0500 Body weight 69.15 kg [facility] Internal Medicine Work Phone: 08-14-2014 14:10-0500 BP Diastolic 72 mm[Hg] [facility] Internal Medicine Work Phone: Comment on above: Patient Position: Sitting; Cuff Location : Left Arm; Cuff Size: Standard 08-14-2014 14:10-0500 BP Systolic 132 mm[Hg] [facility] Internal Medicine Work Phone: Comment on above: Patient Position: Sitting; Cuff Location : Left Arm; Cuff Size: Standard 08-14-2014 14:10-0500 Pulse (Heart Rate) 53 /min [facility] Internal Medicine Work Phone: Comment on above: Pattern: Regular 08-14-2014 14:10-0500 Pulse Oximetry 97 % [facility] Internal Medicine Work Phone: Comment on above: Room air 08-14-2014 14:10-0500 Respiratory Rate 16 /min [facility] Internal Medicine Work Phone: Comment on above: Pattern: Unlabored 08-14-2014 14:10-0500 Weight 69.15 kg [facility] Internal Medicine Work Phone: 07-26-2014 10:15-0500 BMI (Body Mass Index) 30.55 kg/m2 Mirella Mccracken [facility] Internal Medicine Work Phone: 07-26-2014 10:15-0500 Body Temperature 97.4 [degF] [facility] Internal Medicine Work Phone: Comment on above: Method: Oral 07-26-2014 10:15-0500 Body weight 68.61 kg [facility] Internal Medicine Work Phone: 07-26-2014 10:15-0500 BP Diastolic 70 mm[Hg] [facility] Internal Medicine Work Phone: Comment on above: Patient Position: Sitting; Cuff Location : Left Arm; Cuff Size: Standard 07-26-2014 10:15-0500 BP Systolic 110 mm[Hg] [facility] Internal Medicine Work Phone: Comment on above: Patient Position: Sitting; Cuff Location : Left Arm; Cuff Size: Standard 07-26-2014 10:15-0500 BSA (Body Surface Area) 1.64 m2 [facility] Internal Medicine Work Phone: 07-26-2014 10:15-0500 Height 149.86 cm [facility] Internal Medicine Work Phone: 07-26-2014 10:15-0500 Pulse (Heart Rate) 66 /min [facility] Internal Medicine Work Phone: Comment on above: Pattern: Regular 07-26-2014 10:15-0500 Pulse Oximetry 95 % [facility] Internal Medicine Work Phone: Comment on above: Room air 07-26-2014 10:15-0500 Respiratory Rate 15 /min [facility] Internal Medicine Work Phone: 07-26-2014 10:15-0500 Weight 68.61 kg [facility] Internal Medicine Work Phone: 07-25-2014 14:56-0500 BMI (Body Mass Index) 30.55 kg/m2 [facility] Work Phone: 07-25-2014 14:56-0500 Body weight 68.61 kg [facility] Internal Medicine Work Phone: 07-25-2014 14:56-0500 BP Diastolic 80 mm[Hg] [facility] Internal Medicine Work Phone: Comment on above: Patient Position: Sitting; Cuff Location : Left Arm; Cuff Size: Large 07-25-2014 14:56-0500 BP Systolic 140 mm[Hg] [facility] Internal Medicine Work Phone: Comment on above: Patient Position: Sitting; Cuff Location : Left Arm; Cuff Size: Large 07-25-2014 14:56-0500 BSA (Body Surface Area) 1.64 m2 [facility] Internal Medicine Work Phone: 07-25-2014 14:56-0500 Height 149.86 cm [facility] Internal Medicine Work Phone: 07-25-2014 14:56-0500 Pulse (Heart Rate) 59 /min [facility] Internal Medicine Work Phone: Comment on above: Pattern: Regular 07-25-2014 14:56-0500 Pulse Oximetry 98 % [facility] Internal Medicine Work Phone: Comment on above: Room air 07-25-2014 14:56-0500 Respiratory Rate 18 /min [facility] Internal Medicine Work Phone: Comment on above: Pattern: Unlabored 07-25-2014 14:56-0500 Weight 68.61 kg [facility] Internal Medicine Work Phone: 07-13-2014 12:20-0400 BMI (Body Mass Index) 30.5 kg/m2 [facility]lla [facility] Internal Medicine Work Phone: 07-13-2014 12:20-0400 Body weight 68.49 kg [facility] Internal Medicine Work Phone: 07-13-2014 12:20-0400 BP Diastolic 78 mm[Hg] [facility] Internal Medicine Work Phone: Comment on above: Patient Position: Sitting; Cuff Location : Left Arm; Cuff Size: Large 07-13-2014 12:20-0400 BP Systolic 138 mm[Hg] [facility] Internal Medicine Work Phone: Comment on above: Patient Position: Sitting; Cuff Location : Left Arm; Cuff Size: Large 07-13-2014 12:20-0400 BSA (Body Surface Area) 1.64 m2 [facility] Internal Medicine Work Phone: 07-13-2014 12:20-0400 Height 149.86 cm [facility] Internal Medicine Work Phone: 07-13-2014 12:20-0400 Pulse (Heart Rate) 58 /min [facility] Internal Medicine Work Phone: Comment on above: Pattern: Regular 07-13-2014 12:20-0400 Pulse Oximetry 96 % [facility] Internal Medicine Work Phone: Comment on above: Room air 07-13-2014 12:20-0400 Respiratory Rate 20 /min [facility] Internal Medicine Work Phone: Comment on above: Pattern: Unlabored 07-13-2014 12:20-0400 Weight 68.49 kg [facility] Internal Medicine Work Phone: 04-17-2014 11:27-0400 BMI (Body Mass Index) 30.59 kg/m2 M[facility]lla [facility] Internal Medicine Work Phone: 04-17-2014 11:27-0400 Body weight 68.69 kg [facility] Internal Medicine Work Phone: 04-17-2014 11:27-0400 BP Diastolic 70 mm[Hg] [facility] Internal Medicine Work Phone: Comment on above: Patient Position: Sitting; Cuff Location : Left Arm; Cuff Size: Large 04-17-2014 11:27-0400 BP Systolic 124 mm[Hg] [facility] Internal Medicine Work Phone: Comment on above: Patient Position: Sitting; Cuff Location : Left Arm; Cuff Size: Large 04-17-2014 11:27-0400 BSA (Body Surface Area) 1.64 m2 [facility] Internal Medicine Work Phone: 04-17-2014 11:270400 Height 149.86 cm [facility] Internal Medicine Work Phone: 04-17-2014 11:27-0400 Pulse (Heart Rate) 72 /min [facility] Internal Medicine Work Phone: Comment on above: Pattern: Regular 04-17-2014 11:27-0400 Pulse Oximetry 97 % [facility] Internal Medicine Work Phone: Comment on above: Room air 04-17-2014 11:27-0400 Respiratory Rate 18 /min [facility] Internal Medicine Work Phone: Comment on above: Pattern: Unlabored 04-17-2014 11:27-0400 Weight 68.69 kg [facility] Internal Medicine Work Phone: 04-06-2014 11:09-0400 BMI (Body Mass Index) 30.59 kg/m2 Mirella Mccrack[facility] Internal Medicine Work Phone: 04-06-2014 11:09-0400 Body weight 68.69 kg [facility] Internal Medicine Work Phone: 04-06-2014 11:09-0400 BP Diastolic 80 mm[Hg] [facility] Internal Medicine Work Phone: Comment on above: Patient Position: Sitting; Cuff Location : Left Arm; Cuff Size: Standard 04-06-2014 11:09-0400 BP Systolic 142 mm[Hg] [facility] Internal Medicine Work Phone: Comment on above: Patient Position: Sitting; Cuff Location : Left Arm; Cuff Size: Standard 04-06-2014 11:040 BSA (Body Surface Area) 1.64 m2 [facility] Internal Medicine Work Phone: 04-06-2014 11:0400 Height 149.86 cm [facility] Internal Medicine Work Phone: 04-06-2014 11:09-0400 Pulse (Heart Rate) 73 /min [facility] Internal Medicine Work Phone: Comment on above: Pattern: Regular 04-06-2014 11:040 Pulse Oximetry 97 % [facility] Internal Medicine Work Phone: Comment on above: Room air 04-06-2014 11:0400 Respiratory Rate 18 /min [facility] Internal Medicine Work Phone: Comment on above: Pattern: Unlabored 04-06-2014 11:040 Weight 68.69 kg [facility] Internal Medicine Work Phone: 12-30-2013 10:27-0400 BMI (Body Mass Index) 32.03 kg/m2 Mirella Mccracken [facility] Internal Medicine Work Phone: 12-30-2013 10:27-0400 Body Temperature 98.2 [degF] [facility] Internal Medicine Work Phone: Comment on above: Method: Oral 12-30-2013 10:27-0400 Body weight 71.92 kg [facility] Internal Medicine Work Phone: 12-30-2013 10:27-0400 BP Diastolic 70 mm[Hg] [facility] Internal Medicine Work Phone: Comment on above: Patient Position: Sitting; Cuff Location : Left Arm; Cuff Size: Large 12-30-2013 10:27-0400 BP Systolic 120 mm[Hg] [facility] Internal Medicine Work Phone: Comment on above: Patient Position: Sitting; Cuff Location : Left Arm; Cuff Size: Large 12-30-2013 10:0 BSA (Body Surface Area) 1.67 m2 [facility] Internal Medicine Work Phone: 12-30-2013 10:270400 Height 149.86 cm [facility] Internal Medicine Work Phone: 12-30-2013 10:27-0400 Pulse (Heart Rate) 66 /min [facility] Internal Medicine Work Phone: Comment on above: Pattern: Regular 12-30-2013 10:270400 Pulse Oximetry 97 % [facility] Internal Medicine Work Phone: Comment on above: Room air 12-30-2013 10:270400 Respiratory Rate 20 /min [facility] Internal Medicine Work Phone: Comment on above: Pattern: Unlabored 12-30-2013 10:0400 Weight 71.92 kg [facility] Internal Medicine Work Phone: 12-22-2013 10:0400 BMI (Body Mass Index) 31.79 kg/m2 Mirella Mccracken [facility] Internal Medicine Work Phone: 12-22-2013 10:040 Body Temperature 98.2 [degF] [facility] Internal Medicine Work Phone: Comment on above: Method: Oral 12-22-2013 10:040 Body weight 71.39 kg [facility] Internal Medicine Work Phone: 12-22-2013 10:090400 BP Diastolic 60 mm[Hg] [facility] Internal Medicine Work Phone: Comment on above: Patient Position: Sitting; Cuff Location : Left Arm; Cuff Size: Large 12-22-2013 10:0400 BP Systolic 104 mm[Hg] [facility] Internal Medicine Work Phone: Comment on above: Patient Position: Sitting; Cuff Location : Left Arm; Cuff Size: Large 12-22-2013 10:090400 BSA (Body Surface Area) 1.67 m2 [facility] Internal Medicine Work Phone: 12-22-2013 10:09-0400 Height 149.86 cm [facility] Internal Medicine Work Phone: 12-22-2013 10:09-0400 Pulse (Heart Rate) 65 /min [facility] Internal Medicine Work Phone: Comment on above: Pattern: Regular 12-22-2013 10:09-0400 Pulse Oximetry 98 % [facility] Internal Medicine Work Phone: Comment on above: Room air 12-22-2013 10:090400 Respiratory Rate 20 /min [facility] Internal Medicine Work Phone: Comment on above: Pattern: Unlabored 12-22-2013 10:09-0400 Weight 71.39 kg [facility] Internal Medicine Work Phone: 12-01-2013 09:54-0400 BMI (Body Mass Index) 32.32 kg/m2 Mirella Mccrack[facility] Internal Medicine Work Phone: 12-01-2013 09:54-0400 Body Temperature 98.4 [degF] [facility] Internal Medicine Work Phone: Comment on above: Method: Temporal 12-01-2013 09:54-0400 Body weight 72.58 kg [facility] Internal Medicine Work Phone: 12-01-2013 09:54-0400 BP Diastolic 62 mm[Hg] [facility] Internal Medicine Work Phone: Comment on above: Patient Position: Sitting; Cuff Location : Left Arm; Cuff Size: Standard 12-01-2013 09:54-0400 BP Systolic 124 mm[Hg] [facility] Internal Medicine Work Phone: Comment on above: Patient Position: Sitting; Cuff Location : Left Arm; Cuff Size: Standard 12-01-2013 09:54-0400 BSA (Body Surface Area) 1.68 m2 [facility] Internal Medicine Work Phone: 12-01-2013 09:54-0400 Height 149.86 cm [facility] Internal Medicine Work Phone: 12-01-2013 09:54-0400 Pulse (Heart Rate) 69 /min [facility] Internal Medicine Work Phone: Comment on above: Pattern: Regular 12-01-2013 09:54-0400 Pulse Oximetry 97 % [facility] Internal Medicine Work Phone: Comment on above: Room air 12-01-2013 09:54-0400 Respiratory Rate 16 /min [facility] Internal Medicine Work Phone: Comment on above: Pattern: Unlabored 12-01-2013 09:54-0400 Weight 72.58 kg [facility] Internal Medicine Work Phone: 09-23-2013 11:57-0500 BMI (Body Mass Index) 33.01 kg/m2 Mirella Mccrack[facility] Internal Medicine Work Phone: 09-23-2013 11:57-0500 Body weight 74.14 kg [facility] Internal Medicine Work Phone: 09-23-2013 11:57-0500 BP Diastolic 80 mm[Hg] [facility] Internal Medicine Work Phone: Comment on above: Patient Position: Sitting; Cuff Location : Left Arm; Cuff Size: Large 09-23-2013 11:57-0500 BP Systolic 122 mm[Hg] [facility] Internal Medicine Work Phone: Comment on above: Patient Position: Sitting; Cuff Location : Left Arm; Cuff Size: Large 09-23-2013 11:57-0500 BSA (Body Surface Area) 1.69 m2 [facility] Internal Medicine Work Phone: 09-23-2013 11:57-0500 Height 149.86 cm [facility] Internal Medicine Work Phone: 09-23-2013 11:57-0500 Pulse (Heart Rate) 66 /min [facility] Internal Medicine Work Phone: Comment on above: Pattern: Regular 09-23-2013 11:57-0500 Pulse Oximetry 98 % [facility] Internal Medicine Work Phone: Comment on above: Room air 09-23-2013 11:57-0500 Respiratory Rate 18 /min [facility] Internal Medicine Work Phone: Comment on above: Pattern: Unlabored 09-23-2013 11:57-0500 Weight 74.14 kg [facility]lla [facility] Internal Medicine Work Phone: 08-01-2013 10:54-0500 BMI (Body Mass Index) 33.58 kg/m2 Mirella Mccracken [facility] Internal Medicine Work Phone: 08-01-2013 10:54-0500 Body Temperature 98.3 [degF] [facility] Internal Medicine Work Phone: Comment on above: Method: Oral 08-01-2013 10:54-0500 Body weight 75.41 kg [facility]lla [facility] Internal Medicine Work Phone: 08-01-2013 10:54-0500 BP Diastolic 60 mm[Hg] [facility] Internal Medicine Work Phone: Comment on above: Patient Position: Sitting; Cuff Location : Left Arm; Cuff Size: Large 08-01-2013 10:54-0500 BP Systolic 102 mm[Hg] Mirella [facility] Internal Medicine Work Phone: Comment on above: Patient Position: Sitting; Cuff Location : Left Arm; Cuff Size: Large 08-01-2013 10:54-0500 BSA (Body Surface Area) 1.7 m2 Mirella [facility] Internal Medicine Work Phone: 08-01-2013 10:54-0500 Height 149.86 cm Mirella [facility] Internal Medicine Work Phone: 08-01-2013 10:54-0500 Pulse (Heart Rate) 68 /min Mirella [facility] Internal Medicine Work Phone: Comment on above: Pattern: Regular 08-01-2013 10:54-0500 Pulse Oximetry 97 % Mirella [facility] Internal Medicine Work Phone: Comment on above: Room air 08-01-2013 10:54-0500 Respiratory Rate 20 /min Mirella [facility] Internal Medicine Work Phone: Comment on above: Pattern: Unlabored 08-01-2013 10:54-0500 Weight 75.41 kg [facility]: 07-04-2013 09:33-0400 BMI (Body Mass Index) 33.73 kg/m2 Mirella [facility] Internal Medicine Work Phone: Comment on above: hearing yazminlvольга Jones 07-04-2013 09:33-0400 Body Temperature 98.2 [degF] Mirella [facility] Internal Medicine Work Phone: Comment on above: Method: Oral hearing denae Jones 07-04-2013 09:33-0400 Body weight 75.75 kg Mirella [facility] Internal Medicine Work Phone: Comment on above: hearing denae Jones 07-04-2013 09:33-0400 BP Diastolic 62 mm[Hg] [facility] Internal Medicine Work Phone: Comment on above: Patient Position: Sitting; Cuff Location : Left Arm; Cuff Size: Large adarsh Jones 07-04-2013 09:33-0400 BP Systolic 120 mm[Hg] [facility] Internal Medicine Work Phone: Comment on above: Patient Position: Sitting; Cuff Location : Left Arm; Cuff Size: Large adarsh Jones 07-04-2013 09:33-0400 BSA (Body Surface Area) 1.71 m2 [facility] Internal Medicine Work Phone: Comment on above: hearing denae Jones 07-04-2013 09:33-0400 Height 149.86 cm [facility] Internal Medicine Work Phone: Comment on above: hearing yamzinlvольга Jones 07-04-2013 09:33-0400 Pulse (Heart Rate) 52 /min Mirella [facility] Internal Medicine Work Phone: Comment on above: Pattern: Regular hearing wnlvision Dr Samaria Jones 07-04-2013 09:33-0400 Pulse Oximetry 97 % Mirella [facility] Internal Medicine Work Phone: Comment on above: Room air hearing wnlvision Dr Samaria Jones 07-04-2013 09:33-0400 Respiratory Rate 20 /min Mirella [facility] Internal Medicine Work Phone: Comment on above: Pattern: Unlabored hearing wnlvision Dr Samaria Jones 07-04-2013 09:33-0400 Weight 75.75 kg Mirella [facility] Internal Medicine Work Phone: Comment on above: hearing wnlvision Dr. Jones 06-27-2013 14:49-0400 BMI (Body Mass Index) 33.73 kg/m2 Mirella [facility] Internal Medicine Work Phone: 06-27-2013 14:49-0400 Body weight 75.75 kg Mirella [facility] Internal Medicine Work Phone: 06-27-2013 14:49-0400 BP Diastolic 62 mm[Hg] Mirella [facility] Internal Medicine Work Phone: Comment on above: Patient Position: Sitting; Cuff Location : Left Arm; Cuff Size: Large 06-27-2013 14:49-0400 BP Systolic 128 mm[Hg] Mirella [facility] Internal Medicine Work Phone: Comment on above: Patient Position: Sitting; Cuff Location : Left Arm; Cuff Size: Large 06-27-2013 14:49-0400 BSA (Body Surface Area) 1.71 m2 Mirella [facility] Internal Medicine Work Phone: 06-27-2013 14:49-0400 Height 149.86 cm Mirella [facility] Internal Medicine Work Phone: 06-27-2013 14:49-0400 Pulse (Heart Rate) 61 /min Mirella [facility] Internal Medicine Work Phone: Comment on above: Pattern: Regular 06-27-2013 14:49-0400 Pulse Oximetry 98 % Mirella [facility] Internal Medicine Work Phone: Comment on above: Room air 06-27-2013 14:49-0400 Respiratory Rate 20 /min Mirella [facility] Internal Medicine Work Phone: Comment on above: Pattern: Unlabored 06-27-2013 14:49-0400 Weight 75.75 kg Mirella [facility] Internal Medicine Work Phone: 06-20-2013 12:56-0400 BMI (Body Mass Index) 33.53 kg/m2 Mirella [facility] Internal Medicine Work Phone: 06-20-2013 12:56-0400 Body Temperature 97.6 [degF] Mirella [facility] Internal Medicine Work Phone: Comment on above: Method: Oral 06-20-2013 12:56-0400 Body weight 75.3 kg Mirella [facility] Internal Medicine Work Phone: 06-20-2013 12:56-0400 BP Diastolic 68 mm[Hg] Mirella [facility] Internal Medicine Work Phone: Comment on above: Patient Position: Sitting; Cuff Location : Left Arm; Cuff Size: Standard 06-20-2013 12:56-0400 BP Systolic 118 mm[Hg] Mirella [facility] Internal Medicine Work Phone: Comment on above: Patient Position: Sitting; Cuff Location : Left Arm; Cuff Size: Standard 06-20-2013 12:56-0400 BSA (Body Surface Area) 1.7 m2 Mirella [facility] Internal Medicine Work Phone: 06-20-2013 12:56-0400 Height 149.86 cm Mirella [facility] Internal Medicine Work Phone: 06-20-2013 12:56-0400 Pulse (Heart Rate) 68 /min Mirella [facility] Internal Medicine Work Phone: Comment on above: Pattern: Regular 06-20-2013 12:56-0400 Respiratory Rate 20 /min Mirella [facility] Internal Medicine Work Phone: Comment on above: Pattern: Unlabored 06-20-2013 12:56-0400 Weight 75.3 kg Mirella [facility] Internal Medicine Work Phone: 05-20-2013 08:13-0400 BMI (Body Mass Index) 33.63 kg/m2 Mirella [facility] Internal Medicine Work Phone: 05-20-2013 08:13-0400 Body weight 75.52 kg Mirella [facility] Internal Medicine Work Phone: 05-20-2013 08:13-0400 BP Diastolic 62 mm[Hg] Mirella [facility] Internal Medicine Work Phone: Comment on above: Patient Position: Sitting; Cuff Location : Left Arm; Cuff Size: Standard 05-20-2013 08:13-0400 BP Systolic 128 mm[Hg] Mirella [facility] Internal Medicine Work Phone: Comment on above: Patient Position: Sitting; Cuff Location : Left Arm; Cuff Size: Standard 05-20-2013 08:13-0400 BSA (Body Surface Area) 1.71 m2 Mirella [facility] Internal Medicine Work Phone: 05-20-2013 08:13-0400 Height 149.86 cm Mirella [facility] Internal Medicine Work Phone: 05-20-2013 08:13-0400 Pulse (Heart Rate) 60 /min Mirella [facility] Internal Medicine Work Phone: Comment on above: Pattern: Regular 05-20-2013 08:13-0400 Respiratory Rate 20 /min Mirella [facility] Internal Medicine Work Phone: Comment on above: Pattern: Unlabored 05-20-2013 08:13-0400 Weight 75.52 kg Mirella [facility] Internal Medicine Work Phone: 04-22-2013 15:16-0400 BMI (Body Mass Index) 33.63 kg/m2 [facility]: 04-22-2013 15:16-0400 Body Temperature 96 [degF] Mirella [facility] Internal Medicine Work Phone: Comment on above: Method: Oral 04-22-2013 15:16-0400 Body weight 75.52 kg Mirella [facility] Internal Medicine Work Phone: 04-22-2013 15:16-0400 BP Diastolic 74 mm[Hg] Mirella [facility] Internal Medicine Work Phone: Comment on above: Patient Position: Sitting; Cuff Location : Left Arm; Cuff Size: Large 04-22-2013 15:16-0400 BP Systolic 126 mm[Hg] Mirella [facility] Internal Medicine Work Phone: Comment on above: Patient Position: Sitting; Cuff Location : Left Arm; Cuff Size: Large 04-22-2013 15:16-0400 BSA (Body Surface Area) 1.71 m2 Mirella [facility] Internal Medicine Work Phone: 04-22-2013 15:16-0400 Height 149.86 cm Mirella [facility] Internal Medicine Work Phone: 04-22-2013 15:16-0400 Pulse (Heart Rate) 64 /min Mirella [facility] Internal Medicine Work Phone: Comment on above: Pattern: Regular 04-22-2013 15:16-0400 Respiratory Rate 18 /min Mirella [facility] Internal Medicine Work Phone: Comment on above: Pattern: Unlabored 04-22-2013 15:16-0400 Weight 75.52 kg Mirella [facility] Internal Medicine Work Phone: 04-15-2013 15:12-0400 BMI (Body Mass Index) 34.65 kg/m2 Mirella [facility] Internal Medicine Work Phone: 04-15-2013 15:12-0400 Body Temperature 98 [degF] Mirella [facility] Internal Medicine Work Phone: Comment on above: Method: Oral 04-15-2013 15:12-0400 Body weight 77.82 kg Mirella [facility] Internal Medicine Work Phone: 04-15-2013 15:12-0400 BP Diastolic 70 mm[Hg] Mirella [facility] Internal Medicine Work Phone: Comment on above: Patient Position: Sitting; Cuff Location : Left Arm; Cuff Size: Standard 04-15-2013 15:12-0400 BP Systolic 120 mm[Hg] Mirella [facility] Internal Medicine Work Phone: Comment on above: Patient Position: Sitting; Cuff Location : Left Arm; Cuff Size: Standard 04-15-2013 15:12-0400 BSA (Body Surface Area) 1.73 m2 Mirella [facility] Internal Medicine Work Phone: 04-15-2013 15:12-0400 Height 149.86 cm Mirella [facility] Internal Medicine Work Phone: 04-15-2013 15:12-0400 Pulse (Heart Rate) 64 /min Mirella [facility] Internal Medicine Work Phone: Comment on above: Pattern: Regular 04-15-2013 15:12-0400 Pulse Oximetry 98 % Mirella [facility] Internal Medicine Work Phone: Comment on above: Room air 04-15-2013 15:12-0400 Weight 77.82 kg Mirella [facility] Internal Medicine Work Phone: 03-31-2013 11:15-0400 BMI (Body Mass Index) 32.96 kg/m2 Mirella [facility] Internal Medicine Work Phone: 03-31-2013 11:15-0400 Body Temperature 97.5 [degF] Mirella [facility] Internal Medicine Work Phone: Comment on above: Method: Oral 03-31-2013 11:15-0400 Body weight 74.02 kg Mirella [facility] Internal Medicine Work Phone: 03-31-2013 11:15-0400 BP Diastolic 60 mm[Hg] Mirella [facility] Internal Medicine Work Phone: Comment on above: Patient Position: Sitting; Cuff Location : Left Arm; Cuff Size: Large 03-31-2013 11:15-0400 BP Systolic 118 mm[Hg] Mirella [facility] Internal Medicine Work Phone: Comment on above: Patient Position: Sitting; Cuff Location : Left Arm; Cuff Size: Large 03-31-2013 11:15-0400 BSA (Body Surface Area) 1.69 m2 Mirella [facility] Internal Medicine Work Phone: 03-31-2013 11:15-0400 Height 149.86 cm Mirella [facility] Internal Medicine Work Phone: 03-31-2013 11:15-0400 Pulse (Heart Rate) 60 /min Mirella [facility] Internal Medicine Work Phone: Comment on above: Pattern: Regular 03-31-2013 11:15-0400 Respiratory Rate 20 /min Mirella [facility] Internal Medicine Work Phone: Comment on above: Pattern: Unlabored 03-31-2013 11:15-0400 Weight 74.02 kg Mirella [facility] Internal Medicine Work Phone: 02-28-2013 09:53-0400 BMI (Body Mass Index) 32.57 kg/m2 Mirella [facility] Internal Medicine Work Phone: 02-28-2013 09:53-0400 Body Temperature 98.3 [degF] Mirella [facility] Internal Medicine Work Phone: Comment on above: Method: Oral 02-28-2013 09:53-0400 Body weight 73.14 kg Mirella [facility] Internal Medicine Work Phone: 02-28-2013 09:53-0400 BP Diastolic 62 mm[Hg] Mirella [facility] Internal Medicine Work Phone: Comment on above: Patient Position: Sitting; Cuff Location : Left Arm; Cuff Size: Large 02-28-2013 09:53-0400 BP Systolic 120 mm[Hg] Mirella [facility] Internal Medicine Work Phone: Comment on above: Patient Position: Sitting; Cuff Location : Left Arm; Cuff Size: Large 02-28-2013 09:53-0400 BSA (Body Surface Area) 1.68 m2 Mirella [facility] Internal Medicine Work Phone: 02-28-2013 09:53-0400 Height 149.86 cm Mirella [facility] Internal Medicine Work Phone: 02-28-2013 09:53-0400 Pulse (Heart Rate) 60 /min Mirella [facility] Internal Medicine Work Phone: Comment on above: Pattern: Regular 02-28-2013 09:53-0400 Respiratory Rate 18 /min Mierlla [facility] Internal Medicine Work Phone: Comment on above: Pattern: Unlabored 02-28-2013 09:53-0400 Weight 73.14 kg Mirella [facility] Internal Medicine Work Phone: 11-15-2012 14:01-0500 BMI (Body Mass Index) 32.57 kg/m2 Mirella [facility] Internal Medicine Work Phone: 11-15-2012 14:01-0500 Body Temperature 97.9 [degF] Mirella [facility] Internal Medicine Work Phone: Comment on above: Method: Oral 11-15-2012 14:01-0500 Body weight 73.14 kg Mirella [facility] Internal Medicine Work Phone: 11-15-2012 14:01-0500 BP Diastolic 78 mm[Hg] [facility]: Comment on above: Patient Position: Sitting; Cuff Location : Left Arm; Cuff Size: Large 11-15-2012 14:01-0500 BP Systolic 122 mm[Hg] Mirella [facility] Internal Medicine Work Phone: Comment on above: Patient Position: Sitting; Cuff Location : Left Arm; Cuff Size: Large 11-15-2012 14:01-0500 BSA (Body Surface Area) 1.68 m2 Mirella [facility] Internal Medicine Work Phone: 11-15-2012 14:01-0500 Height 149.86 cm [facility] Work Phone: 11-15-2012 14:01-0500 Pulse (Heart Rate) 72 /min Mirella [facility] Internal Medicine Work Phone: Comment on above: Pattern: Regular 11-15-2012 14:01-0500 Respiratory Rate 20 /min Mirella [facility] Internal Medicine Work Phone: Comment on above: Pattern: Unlabored 11-15-2012 14:01-0500 Weight 73.14 kg Mirella [facility] Internal Medicine Work Phone: 10-25-2012 11:26-0500 BMI (Body Mass Index) 32.74 kg/m2 Mirella [facility] Internal Medicine Work Phone: 10-25-2012 11:26-0500 Body Temperature 98.3 [degF] Mirella [facility] Internal Medicine Work Phone: Comment on above: Method: Oral 10-25-2012 11:26-0500 Body weight 73.54 kg Mirella [facility] Internal Medicine Work Phone: 10-25-2012 11:26-0500 BP Diastolic 62 mm[Hg] Mirella [facility] Internal Medicine Work Phone: Comment on above: Patient Position: Sitting; Cuff Location : Right Arm; Cuff Size: Large 10-25-2012 11:26-0500 BP Systolic 144 mm[Hg] Mirella [facility] Internal Medicine Work Phone: Comment on above: Patient Position: Sitting; Cuff Location : Right Arm; Cuff Size: Large 10-25-2012 11:26-0500 BSA (Body Surface Area) 1.69 m2 Mirella [facility] Internal Medicine Work Phone: 10-25-2012 11:26-0500 Height 149.86 cm Mirella [facility] Internal Medicine Work Phone: 10-25-2012 11:26-0500 Pulse (Heart Rate) 72 /min Mirella [facility] Internal Medicine Work Phone: Comment on above: Pattern: Regular 10-25-2012 11:26-0500 Respiratory Rate 20 /min Mirella [facility] Internal Medicine Work Phone: Comment on above: Pattern: Unlabored 10-25-2012 11:26-0500 Weight 73.54 kg Mirella [facility] Internal Medicine Work Phone: 10-21-2012 09:46-0500 BMI (Body Mass Index) 32.74 kg/m2 Mirella [facility] Internal Medicine Work Phone: 10-21-2012 09:46-0500 Body Temperature 97.6 [degF] Mirella [facility] Internal Medicine Work Phone: Comment on above: Method: Oral 10-21-2012 09:46-0500 Body weight 73.54 kg Mirella [facility] Internal Medicine Work Phone: 10-21-2012 09:46-0500 BP Diastolic 62 mm[Hg] Mirella [facility] Internal Medicine Work Phone: Comment on above: Patient Position: Sitting; Cuff Location : Left Arm; Cuff Size: Large 10-21-2012 09:46-0500 BP Systolic 120 mm[Hg] Mirella [facility] Internal Medicine Work Phone: Comment on above: Patient Position: Sitting; Cuff Location : Left Arm; Cuff Size: Large 10-21-2012 09:46-0500 BSA (Body Surface Area) 1.69 m2 Mirella [facility] Internal Medicine Work Phone: 10-21-2012 09:46-0500 Height 149.86 cm Mirella [facility] Internal Medicine Work Phone: 10-21-2012 09:46-0500 Pulse (Heart Rate) 64 /min Mirella [facility] Internal Medicine Work Phone: Comment on above: Pattern: Regular 10-21-2012 09:46-0500 Respiratory Rate 20 /min Mirella [facility] Internal Medicine Work Phone: Comment on above: Pattern: Unlabored 10-21-2012 09:46-0500 Weight 73.54 kg Mirella [facility] Internal Medicine Work Phone: 09-30-2012 09:48-0500 BMI (Body Mass Index) 32.74 kg/m2 Mirella [facility] Internal Medicine Work Phone: 09-30-2012 09:48-0500 Body Temperature 98.2 [degF] Mirella [facility] Internal Medicine Work Phone: Comment on above: Method: Oral 09-30-2012 09:48-0500 Body weight 73.54 kg Mirella [facility] Internal Medicine Work Phone: 09-30-2012 09:48-0500 BP Diastolic 76 mm[Hg] Mirella [facility] Internal Medicine Work Phone: Comment on above: Patient Position: Sitting; Cuff Location : Left Arm; Cuff Size: Standard 09-30-2012 09:48-0500 BP Systolic 122 mm[Hg] Mirella [facility] Internal Medicine Work Phone: Comment on above: Patient Position: Sitting; Cuff Location : Left Arm; Cuff Size: Standard 09-30-2012 09:48-0500 BSA (Body Surface Area) 1.69 m2 Mirella [facility] Internal Medicine Work Phone: 09-30-2012 09:48-0500 Height 149.86 cm Mirella [facility] Internal Medicine Work Phone: 09-30-2012 09:48-0500 Pulse (Heart Rate) 58 /min Mirella [facility] Internal Medicine Work Phone: Comment on above: Pattern: Regular 09-30-2012 09:48-0500 Pulse Oximetry 98 % Mirella [facility] Internal Medicine Work Phone: Comment on above: Room air 09-30-2012 09:48-0500 Respiratory Rate 16 /min Mirella [facility] Internal Medicine Work Phone: Comment on above: Pattern: Unlabored 09-30-2012 09:48-0500 Weight 73.54 kg Mirella [facility] Internal Medicine Work Phone: 09-16-2012 09:47-0500 BMI (Body Mass Index) 32.74 kg/m2 [facility] Work Phone: 09-16-2012 09:47-0500 Body Temperature 97 [degF] Mirella [facility] Internal Medicine Work Phone: Comment on above: Method: Oral 09-16-2012 09:47-0500 Body weight 73.54 kg Mirella [facility] Internal Medicine Work Phone: 09-16-2012 09:47-0500 BP Diastolic 76 mm[Hg] Mirella [facility] Internal Medicine Work Phone: Comment on above: Patient Position: Sitting; Cuff Location : Left Arm; Cuff Size: Large 09-16-2012 09:47-0500 BP Systolic 128 mm[Hg] Mirella [facility] Internal Medicine Work Phone: Comment on above: Patient Position: Sitting; Cuff Location : Left Arm; Cuff Size: Large 09-16-2012 09:47-0500 BSA (Body Surface Area) 1.69 m2 Mirella [facility] Internal Medicine Work Phone: 09-16-2012 09:47-0500 Height 149.86 cm Mirella [facility] Internal Medicine Work Phone: 09-16-2012 09:47-0500 Pulse (Heart Rate) 72 /min Mirella [facility] Internal Medicine Work Phone: Comment on above: Pattern: Regular 09-16-2012 09:47-0500 Respiratory Rate 18 /min Mirella [facility] Internal Medicine Work Phone: Comment on above: Pattern: Unlabored 09-16-2012 09:47-0500 Weight 73.54 kg Mirella [facility] Internal Medicine Work Phone: 05-27-2012 09:32-0400 Body Temperature 96.9 [degF] [facility] Work Phone: 03-11-2012 13:42-0400 BMI (Body Mass Index) 28.88 kg/m2 [facility] Work Phone: 03-11-2012 13:42-0400 Body Temperature 97.8 [degF] Mirella [facility] Internal Medicine Work Phone: 03-11-2012 13:42-0400 Body weight 64.86 kg Mirella [facility] Internal Medicine Work Phone: 03-11-2012 13:42-0400 BP Diastolic 70 mm[Hg] Mirella [facility] Internal Medicine Work Phone: Comment on above: Patient Position: Sitting; Cuff Location : Left Arm; Cuff Size: Large 03-11-2012 13:42-0400 BP Systolic 124 mm[Hg] Mirella [facility] Internal Medicine Work Phone: Comment on above: Patient Position: Sitting; Cuff Location : Left Arm; Cuff Size: Large 03-11-2012 13:42-0400 BSA (Body Surface Area) 1.6 m2 Mirella [facility] Internal Medicine Work Phone: 03-11-2012 13:42-0400 Height 149.86 cm Mirella [facility] Medicine Work Phone: 03-11-2012 13:42-0400 Pulse (Heart Rate) 56 /min Mirella [facility] Medicine Work Phone: Comment on above: Pattern: Regular 03-11-2012 13:42-0400 Respiratory Rate 18 /min Mirella [facility] Internal Medicine Work Phone: Comment on above: Pattern: Unlabored 03-11-2012 13:42-0400 Weight 64.86 kg Mirella [facility] Internal Medicine Work Phone: 03-04-2012 12:12-0400 BMI (Body Mass Index) 28.96 kg/m2 Mirella [facility] Internal Medicine Work Phone: 03-04-2012 12:12-0400 Body weight 65.03 kg Mirella [facility] Internal Medicine Work Phone: 03-04-2012 12:12-0400 BP Diastolic 62 mm[Hg] Mirella [facility] Internal Medicine Work Phone: Comment on above: Patient Position: Sitting; Cuff Location : Left Arm; Cuff Size: Large 03-04-2012 12:12-0400 BP Systolic 122 mm[Hg] Mirella [facility] Internal Medicine Work Phone: Comment on above: Patient Position: Sitting; Cuff Location : Left Arm; Cuff Size: Large 03-04-2012 12:12-0400 BSA (Body Surface Area) 1.6 m2 Mirella [facility] Internal Medicine Work Phone: 03-04-2012 12:12-0400 Height 149.86 cm Mirella [facility] Medicine Work Phone: 03-04-2012 12:12-0400 Pulse (Heart Rate) 60 /min Mirella [facility] Internal Medicine Work Phone: Comment on above: Pattern: Regular 03-04-2012 12:12-0400 Respiratory Rate 20 /min Mirella [facility] Internal Medicine Work Phone: Comment on above: Pattern: Unlabored 03-04-2012 12:12-0400 Weight 65.03 kg Mirella [facility] Internal Medicine Work Phone: 02-25-2012 13:29-0400 BMI (Body Mass Index) 28.96 kg/m2 Mirella [facility] Internal Medicine Work Phone: 02-25-2012 13:29-0400 Body weight 65.03 kg Mirella [facility] Internal Medicine Work Phone: 02-25-2012 13:29-0400 BP Diastolic 76 mm[Hg] Mirella [facility] Internal Medicine Work Phone: Comment on above: Patient Position: Sitting; Cuff Location : Left Arm; Cuff Size: Standard 02-25-2012 13:29-0400 BP Systolic 120 mm[Hg] Mirella [facility] Internal Medicine Work Phone: Comment on above: Patient Position: Sitting; Cuff Location : Left Arm; Cuff Size: Standard 02-25-2012 13:29-0400 BSA (Body Surface Area) 1.6 m2 Mirella [facility] Internal Medicine Work Phone: 02-25-2012 13:29-0400 Height 149.86 cm Mirella [facility] Internal Medicine Work Phone: 02-25-2012 13:29-0400 Pulse (Heart Rate) 68 /min Mirella [facility] Internal Medicine Work Phone: Comment on above: Pattern: Regular 02-25-2012 13:29-0400 Respiratory Rate 20 /min Mirella [facility] Internal Medicine Work Phone: Comment on above: Pattern: Unlabored 02-25-2012 13:29-0400 Weight 65.03 kg Mirella [facility] Internal Medicine Work Phone: 01-30-2012 08:19-0400 BMI (Body Mass Index) 28.96 kg/m2 Mirella Mccracken [facility] Internal Medicine Work Phone: 01-30-2012 08:19-0400 Body weight 65.03 kg Mirella [facility] Internal Medicine Work Phone: 01-30-2012 08:19-0400 BP Diastolic 70 mm[Hg] Mirella [facility] Internal Medicine Work Phone: Comment on above: Patient Position: Sitting; Cuff Location : Left Arm; Cuff Size: Large 01-30-2012 08:19-0400 BP Systolic 120 mm[Hg] Mirella [facility] Internal Medicine Work Phone: Comment on above: Patient Position: Sitting; Cuff Location : Left Arm; Cuff Size: Large 01-30-2012 08:19-0400 BSA (Body Surface Area) 1.6 m2 Mirella [facility] Internal Medicine Work Phone: 01-30-2012 08:190400 Height 149.86 cm Mirella [facility] Internal Medicine Work Phone: 01-30-2012 08:19-0400 Pulse (Heart Rate) 60 /min Mirella [facility] Internal Medicine Work Phone: Comment on above: Pattern: Regular 01-30-2012 08:19-0400 Respiratory Rate 18 /min [facility]: Comment on above: Pattern: Unlabored 01-30-2012 08:19-0400 Weight 65.03 kg Mirella Mccracken [facility] Medicine Work Phone: 01-15-2012 12:06-0400 BMI (Body Mass Index) 28.96 kg/m2 Mirella Mccracken [facility] Internal Medicine Work Phone: Comment on above: vison with correction ou=20/50 os=20/50 od=20/50hearing [facility] 01-15-2012 12:06-0400 Body Temperature 97 [degF] [facility] Work [facility]: Comment on above: Method: Oral vison with correctio n ou=20/50 os=20/50 od=20/50hearing [facility] 01-15-2012 12:06-0400 Body weight 65.03 kg [facility] Work [facility]: Comment on above: vison with correction ou=20/50 os=20/50 od=20/50hearing [facility] 01-15-2012 12:06-0400 BP Diastolic 60 mm[Hg] Mirella [facility] Medicine Work Phone: Comment on above: Patient Position: Sitting; Cuff Location : Left Arm; Cuff Size: Large vison with correctio n ou=20/50 os=20/50 od=20/50hearing [facility] 01-15-2012 12:06-0400 BP Systolic 118 mm[Hg] [facility] Internal Medicine Work Phone: Comment on above: Patient Position: Sitting; Cuff Location : Left Arm; Cuff Size: Large vison with correctio n ou=20/50 os=20/50 od=20/50hearing [facility] 01-15-2012 12:06-0400 BSA (Body Surface Area) 1.6 m2 [facility] Internal Medicine Work Phone: Comment on above: vison with correction ou=20/50 os=20/50 od=20/50hearing [facility] 01-15-2012 12:06-0400 Height 149.86 cm Mirella [facility] Internal Medicine Work Phone: Comment on above: vison with correction ou=20/50 os=20/50 od=20/50hearing [facility] 01-15-2012 12:06-0400 Pulse (Heart Rate) 68 /min Mirella [facility] Internal Medicine Work Phone: Comment on above: Pattern: Regular vison with correctio n ou=20/50 os=20/50 od=20/50hearing [facility] 01-15-2012 12:06-0400 Respiratory Rate 20 /min [facility] Work Phone: Comment on above: Pattern: Unlabored vison with correctio n ou=20/50 os=20/50 od=20/50hearing [facility] 01-15-2012 12:06-0400 Weight 65.03 kg Mirella [facility] Internal Medicine Work Phone: Comment on above: vison with correction ou=20/50 os=20/50 od=20/50hearing [facility] 12-31-2011 15:05-0400 BMI (Body Mass Index) 28.88 kg/m2 Mirella Mccracken [facility] Internal Medicine Work Phone: 12-31-2011 15:05-0400 Body weight 64.86 kg Mirella [facility] Internal Medicine Work Phone: 12-31-2011 15:05-0400 BP Diastolic 78 mm[Hg] [facility] Work Phone: Comment on above: Patient Position: Sitting; Cuff Location : Left Arm; Cuff Size: Large 12-31-2011 15:05-0400 BP Systolic 122 mm[Hg] [facility] Work Phone: Comment on above: Patient Position: Sitting; Cuff Location : Left Arm; Cuff Size: Large 12-31-2011 15:05-0400 BSA (Body Surface Area) 1.6 m2 Mirella [facility] Internal Medicine Work Phone: 12-31-2011 15:05-0400 Height 149.86 cm Mirella [facility] Internal Medicine Work Phone: 12-31-2011 15:05-0400 Pulse (Heart Rate) 60 /min Mirella [facility] Internal Medicine Work Phone: Comment on above: Pattern: Regular 12-31-2011 15:05-0400 Respiratory Rate 18 /min Mirella [facility] Internal Medicine Work Phone: Comment on above: Pattern: Unlabored 12-31-2011 15:05-0400 Weight 64.86 kg Mirella [facility] Internal Medicine Work Phone: 12-26-2011 14:17-0400 BP Diastolic 62 mm[Hg] Mirella [facility] Internal Medicine Work Phone: Comment on above: Patient Position: Sitting; Cuff Location : Left Arm; Cuff Size: Standard 12-26-2011 14:17-0400 BP Systolic 122 mm[Hg] Mirella [facility] Internal Medicine Work Phone: Comment on above: Patient Position: Sitting; Cuff Location : Left Arm; Cuff Size: Standard 12-26-2011 14:17-0400 Pulse (Heart Rate) 58 /min Mirella [facility] Internal Medicine Work Phone: Comment on above: Pattern: Regular 12-26-2011 14:17-0400 Pulse Oximetry 98 % Mirella [facility] Internal Medicine Work Phone: Comment on above: Room air 12-26-2011 13:59-0400 Pulse (Heart Rate) 48 /min Mirella [facility] Internal Medicine Work Phone: Comment on above: Pattern: Regular 12-26-2011 13:59-0400 Pulse Oximetry 95 % Mirella [facility] Internal Medicine Work Phone: Comment on above: Room air 12-26-2011 13:13-0400 BMI (Body Mass Index) 29.49 kg/m2 Mirella Mccracken [facility] Internal Medicine Work Phone: 12-26-2011 13:13-0400 Body Temperature 97.8 [degF] Mirella [facility] Internal Medicine Work Phone: Comment on above: Method: Oral 12-26-2011 13:13-0400 Body weight 66.23 kg Mirella [facility] Internal Medicine Work Phone: 12-26-2011 13:13-0400 BP Diastolic 68 mm[Hg] Mirella [facility] Internal Medicine Work Phone: Comment on above: Patient Position: Sitting; Cuff Location : Left Arm; Cuff Size: Standard 12-26-2011 13:13-0400 BP Systolic 114 mm[Hg] Mirella [facility] Internal Medicine Work Phone: Comment on above: Patient Position: Sitting; Cuff Location : Left Arm; Cuff Size: Standard 12-26-2011 13:13-0400 BSA (Body Surface Area) 1.61 m2 Mirella [facility] Internal Medicine Work Phone: 12-26-2011 13:13-0400 Height 149.86 cm Mirella [facility] Internal Medicine Work Phone: 12-26-2011 13:13-0400 Pulse (Heart Rate) 54 /min Mirella [facility] Internal Medicine Work Phone: Comment on above: Pattern: Regular 12-26-2011 13:13-0400 Pulse Oximetry 98 % Mirella [facility] Internal Medicine Work Phone: Comment on above: Room air 12-26-2011 13:13-0400 Respiratory Rate 20 /min Mirella [facility] Internal Medicine Work Phone: Comment on above: Pattern: Unlabored 12-26-2011 13:13-0400 Weight 66.23 kg [facility] Work Phone: 12-24-2011 14:07-0400 BMI (Body Mass Index) 29.5 kg/m2 Mirella Mccracken [facility] Internal Medicine Work Phone: 12-24-2011 14:07-0400 Body weight 66.25 kg Mirella [facility] Internal Medicine Work Phone: 12-24-2011 14:07-0400 BP Diastolic 60 mm[Hg] Mirella [facility] Internal Medicine Work Phone: Comment on above: Patient Position: Sitting; Cuff Location : Left Arm; Cuff Size: Large 12-24-2011 14:07-0400 BP Systolic 124 mm[Hg] Mirella [facility] Internal Medicine Work Phone: Comment on above: Patient Position: Sitting; Cuff Location : Left Arm; Cuff Size: Large 12-24-2011 14:07-0400 BSA (Body Surface Area) 1.61 m2 Mirella [facility] Internal Medicine Work Phone: 12-24-2011 14:07-0400 Height 149.86 cm Mirella [facility] Internal Medicine Work Phone: 12-24-2011 14:07-0400 Pulse (Heart Rate) 60 /min Mirella [facility] Internal Medicine Work Phone: Comment on above: Pattern: Regular 12-24-2011 14:07-0400 Respiratory Rate 18 /min Mirella [facility] Internal Medicine Work Phone: Comment on above: Pattern: Unlabored 12-24-2011 14:07-0400 Weight 66.25 kg Mirella [facility] Internal Medicine Work Phone: 12-15-2011 09:30-0400 BMI (Body Mass Index) 29.31 kg/m2 Mirella Mccracken [facility] Internal Medicine Work Phone: 12-15-2011 09:30-0400 Body Temperature 97.9 [degF] Mirella [facility] Internal Medicine Work Phone: Comment on above: Method: Oral 12-15-2011 09:30-0400 Body weight 65.83 kg Mirella [facility] Internal Medicine Work Phone: 12-15-2011 09:30-0400 BP Diastolic 60 mm[Hg] Mirella [facility] Internal Medicine Work Phone: Comment on above: Patient Position: Sitting; Cuff Location : Left Arm; Cuff Size: Large 12-15-2011 09:30-0400 BP Systolic 104 mm[Hg] Mirella [facility] Internal Medicine Work Phone: Comment on above: Patient Position: Sitting; Cuff Location : Left Arm; Cuff Size: Large 12-15-2011 09:30-0400 BSA (Body Surface Area) 1.61 m2 Mirella [facility] Internal Medicine Work Phone: 12-15-2011 09:30-0400 Height 149.86 cm Mirella [facility] Internal Medicine Work Phone: 12-15-2011 09:30-0400 Pulse (Heart Rate) 60 /min Mirella [facility] Internal Medicine Work Phone: Comment on above: Pattern: Regular 12-15-2011 09:30-0400 Respiratory Rate 18 /min Mirella [facility] Internal Medicine Work Phone: Comment on above: Pattern: Unlabored 12-15-2011 09:30-0400 Weight 65.83 kg Mirella [facility] Internal Medicine Work Phone: 11-26-2011 11:36-0400 BMI (Body Mass Index) 29.69 kg/m2 Mirella Mccracken [facility] Internal Medicine Work Phone: 11-26-2011 11:36-0400 Body Temperature 95.6 [degF] Mirella [facility] Internal Medicine Work Phone: Comment on above: Method: Oral 11-26-2011 11:36-0400 Body weight 66.68 kg Mirella [facility] Internal Medicine Work Phone: 11-26-2011 11:36-0400 BP Diastolic 62 mm[Hg] Mirella [facility] Internal Medicine Work Phone: Comment on above: Patient Position: Sitting; Cuff Location : Left Arm; Cuff Size: Large 11-26-2011 11:36-0400 BP Systolic 118 mm[Hg] Mirella [facility] Internal Medicine Work Phone: Comment on above: Patient Position: Sitting; Cuff Location : Left Arm; Cuff Size: Large 11-26-2011 11:36-0400 BSA (Body Surface Area) 1.62 m2 Mirella [facility] Internal Medicine Work Phone: 11-26-2011 11:36-0400 Height 149.86 cm Mirella [facility] Internal Medicine Work Phone: 11-26-2011 11:36-0400 Pulse (Heart Rate) 64 /min Mirella [facility] Internal Medicine Work Phone: Comment on above: Pattern: Regular 11-26-2011 11:36-0400 Respiratory Rate 20 /min Mirella [facility] Internal Medicine Work Phone: Comment on above: Pattern: Unlabored 11-26-2011 11:36-0400 Weight 66.68 kg Mirella [facility] Internal Medicine Work Phone: 11-12-2011 12:55-0500 BMI (Body Mass Index) 30.51 kg/m2 Mirella Mccracken [facility] Internal Medicine Work Phone: 11-12-2011 12:55-0500 Body weight 68.52 kg Mirella [facility] Internal Medicine Work Phone: 11-12-2011 12:55-0500 BP Diastolic 60 mm[Hg] Mirella [facility] Internal Medicine Work Phone: Comment on above: Patient Position: Sitting; Cuff Location : Left Arm; Cuff Size: Large 11-12-2011 12:55-0500 BP Systolic 112 mm[Hg] Mirella [facility] Internal Medicine Work Phone: Comment on above: Patient Position: Sitting; Cuff Location : Left Arm; Cuff Size: Large 11-12-2011 12:55-0500 BSA (Body Surface Area) 1.64 m2 Mirella [facility] Internal Medicine Work Phone: 11-12-2011 12:55-0500 Height 149.86 cm Mirella [facility] Internal Medicine Work Phone: 11-12-2011 12:55-0500 Pulse (Heart Rate) 68 /min Mirella [facility] Internal Medicine Work Phone: Comment on above: Pattern: Regular 11-12-2011 12:55-0500 Respiratory Rate 20 /min Mirella [facility] Internal Medicine Work Phone: Comment on above: Pattern: Unlabored 11-12-2011 12:55-0500 Weight 68.52 kg Mirella [facility] Internal Medicine Work Phone: 11-06-2011 12:18-0500 BMI (Body Mass Index) 30.09 kg/m2 Mirella Mccracken [facility] Internal Medicine Work Phone: 11-06-2011 12:18-0500 Body Temperature 98.1 [degF] Mirella [facility] Internal Medicine Work Phone: Comment on above: Method: Oral 11-06-2011 12:18-0500 Body weight 67.59 kg Mirella [facility] Internal Medicine Work Phone: 11-06-2011 12:18-0500 BP Diastolic 70 mm[Hg] Mirella [facility] Internal Medicine Work Phone: Comment on above: Patient Position: Sitting; Cuff Location : Left Arm; Cuff Size: Large 11-06-2011 12:18-0500 BP Systolic 134 mm[Hg] Mirella [facility] Internal Medicine Work Phone: Comment on above: Patient Position: Sitting; Cuff Location : Left Arm; Cuff Size: Large 11-06-2011 12:18-0500 BSA (Body Surface Area) 1.63 m2 Mirella [facility] Internal Medicine Work Phone: 11-06-2011 12:18-0500 Height 149.86 cm Mirella [facility] Internal Medicine Work Phone: 11-06-2011 12:18-0500 Pulse (Heart Rate) 68 /min Mirella [facility] Internal Medicine Work Phone: Comment on above: Pattern: Regular 11-06-2011 12:18-0500 Respiratory Rate 20 /min Mirella [facility] Internal Medicine Work Phone: Comment on above: Pattern: Unlabored 11-06-2011 12:18-0500 Weight 67.59 kg Mirella [facility] Internal Medicine Work Phone: 10-21-2011 13:27-0500 Body Temperature 97.9 [degF] Mirella [facility] Internal Medicine Work Phone: 10-21-2011 13:27-0500 Body weight 67.54 kg Mirella [facility] Internal Medicine Work Phone: 10-21-2011 13:27-0500 BP Diastolic 92 mm[Hg] Mirella [facility] Internal Medicine Work Phone: Comment on above: Patient Position: Sitting; Cuff Location : Left Arm; Cuff Size: Standard 10-21-2011 13:27-0500 BP Systolic 152 mm[Hg] Mirella [facility] Internal Medicine Work Phone: Comment on above: Patient Position: Sitting; Cuff Location : Left Arm; Cuff Size: Standard 10-21-2011 13:27-0500 Pulse (Heart Rate) 99 /min Mirella [facility] Internal Medicine Work Phone: Comment on above: Pattern: Regular 10-21-2011 13:27-0500 Pulse Oximetry 92 % Mirella [facility] Internal Medicine Work Phone: Comment on above: Room air 10-21-2011 13:27-0500 Respiratory Rate 17 /min Mirella [facility] Internal Medicine Work Phone: Comment on above: Pattern: Unlabored 10-21-2011 13:27-0500 Weight 67.54 kg Mirella [facility] Internal Medicine Work Phone: 06-05-2011 09:34-0400 BMI (Body Mass Index) 30.14 kg/m2 Mirella Mccracken [facility] Internal Medicine Work Phone: 06-05-2011 09:34-0400 Body Temperature 98.5 [degF] Mirella [facility] Internal Medicine Work Phone: Comment on above: Method: Oral 06-05-2011 09:34-0400 Body weight 67.7 kg Mirella [facility] Internal Medicine Work Phone: 06-05-2011 09:34-0400 BP Diastolic 78 mm[Hg] Mirella [facility] Internal Medicine Work Phone: Comment on above: Patient Position: Sitting; Cuff Location : Left Arm; Cuff Size: Large 06-05-2011 09:34-0400 BP Systolic 142 mm[Hg] Mirella [facility] Internal Medicine Work Phone: Comment on above: Patient Position: Sitting; Cuff Location : Left Arm; Cuff Size: Large 06-05-2011 09:34-0400 BSA (Body Surface Area) 1.63 m2 Mirella [facility] Internal Medicine Work Phone: 06-05-2011 09:34-0400 Height 149.86 cm Mirella [facility] Internal Medicine Work Phone: 06-05-2011 09:34-0400 Pulse (Heart Rate) 76 /min Mirella [facility] Internal Medicine Work Phone: Comment on above: Pattern: Regular 06-05-2011 09:34-0400 Respiratory Rate 20 /min Mirella [facility] Internal Medicine Work Phone: Comment on above: Pattern: Unlabored 06-05-2011 09:34-0400 Weight 67.7 kg Mirella [facility] Internal Medicine Work Phone: 05-08-2011 08:10-0400 BMI (Body Mass Index) 28.19 kg/m2 Mirella Mccracken [facility] Internal Medicine Work Phone: 05-08-2011 08:10-0400 Body Temperature 98.7 [degF] Mirella [facility] Internal Medicine Work Phone: Comment on above: Method: Oral 05-08-2011 08:10-0400 Body weight 63.31 kg Mirella [facility] Internal Medicine Work Phone: 05-08-2011 08:10-0400 BP Diastolic 78 mm[Hg] Mirella [facility] Internal Medicine Work Phone: Comment on above: Patient Position: Sitting; Cuff Location : Left Arm; Cuff Size: Standard 05-08-2011 08:10-0400 BP Systolic 142 mm[Hg] Mirella [facility] Internal Medicine Work Phone: Comment on above: Patient Position: Sitting; Cuff Location : Left Arm; Cuff Size: Standard 05-08-2011 08:10-0400 BSA (Body Surface Area) 1.58 m2 Mirella [facility] Internal Medicine Work Phone: 05-08-2011 08:10-0400 Height 149.86 cm Mirella [facility] Internal Medicine Work Phone: 05-08-2011 08:10-0400 Pulse (Heart Rate) 84 /min Mirella [facility] Internal Medicine Work Phone: Comment on above: Pattern: Regular 05-08-2011 08:10-0400 Respiratory Rate 17 /min Mirella [facility] Medicine Work Phone: 05-08-2011 08:10-0400 Weight 63.31 kg Mirella [facility] Medicine Work Phone: 05-07-2011 08:42-0400 BMI (Body Mass Index) 28.19 kg/m2 Mirella Mccracken [facility] Internal Medicine Work Phone: 05-07-2011 08:42-0400 Body Temperature 98 [degF] Mirella [facility] Medicine Work Phone: Comment on above: Method: Oral 05-07-2011 08:42-0400 Body weight 63.31 kg Mirella [facility] Medicine Work Phone: 05-07-2011 08:42-0400 BP Diastolic 72 mm[Hg] Mirella [facility] Medicine Work Phone: Comment on above: Patient Position: Sitting; Cuff Location : Left Arm; Cuff Size: Standard 05-07-2011 08:42-0400 BP Systolic 132 mm[Hg] Mirella [facility] Medicine Work Phone: Comment on above: Patient Position: Sitting; Cuff Location : Left Arm; Cuff Size: Standard 05-07-2011 08:42-0400 BSA (Body Surface Area) 1.58 m2 Mirella [facility] Internal Medicine Work Phone: 05-07-2011 08:42-0400 Height 149.86 cm Mirella [facility] Medicine Work Phone: 05-07-2011 08:42-0400 Pulse (Heart Rate) 82 /min Mirella [facility] Medicine Work Phone: Comment on above: Pattern: Regular 05-07-2011 08:42-0400 Respiratory Rate 18 /min Mirella [facility] Medicine Work Phone: Comment on above: Pattern: Unlabored 05-07-2011 08:42-0400 Weight 63.31 kg Mirella [facility] Medicine Work Phone: 05-06-2011 16:25-0400 BP Diastolic 82 mm[Hg] Mirella [facility] Medicine Work Phone: Comment on above: Patient Position: Supine; Cuff Location: Right Arm; Cuff Size: Standard 05-06-2011 16:25-0400 BP Systolic 146 mm[Hg] Mirella [facility] Medicine Work Phone: Comment on above: Patient Position: Supine; Cuff Location: Right Arm; Cuff Size: Standard 05-06-2011 16:25-0400 Pulse (Heart Rate) 76 /min Mirella [facility] Medicine Work Phone: Comment on above: Pattern: Regular 11-06-2010 12:10-0500 BMI (Body Mass Index) 28.19 kg/m2 Mirella Mccracken [facility] Internal Medicine Work Phone: 11-06-2010 12:10-0500 Body Temperature 97.3 [degF] Mirella [facility] Medicine Work Phone: Comment on above: Method: Oral 11-06-2010 12:10-0500 Body weight 63.31 kg Mirella [facility] Medicine Work Phone: 11-06-2010 12:10-0500 BP Diastolic 82 mm[Hg] Mirella [facility] Medicine Work Phone: Comment on above: Patient Position: Sitting; Cuff Location : Left Arm; Cuff Size: Standard 11-06-2010 12:10-0500 BP Systolic 144 mm[Hg] Mirella [facility] Medicine Work Phone: Comment on above: Patient Position: Sitting; Cuff Location : Left Arm; Cuff Size: Standard 11-06-2010 12:10-0500 BSA (Body Surface Area) 1.58 m2 Mirella [facility] Medicine Work Phone: 11-06-2010 12:10-0500 Height 149.86 cm Mirella [facility] Medicine Work Phone: 11-06-2010 12:10-0500 Pulse (Heart Rate) 76 /min Mirella [facility] Medicine Work Phone: Comment on above: Pattern: Regular 11-06-2010 12:10-0500 Respiratory Rate 18 /min Mirella [facility]rack[facility] Medicine Work Phone: Comment on above: Pattern: Unlabored 11-06-2010 12:10-0500 Weight 63.31 kg Mirella [facility] Medicine Work Phone: 11-04-2010 09:00-0500 BMI (Body Mass Index) 28.19 kg/m2 Mirella Mccracken [facility] Internal Medicine Work Phone: 11-04-2010 09:00-0500 Body weight 63.31 kg Mirella Mccrack[facility] Medicine Work Phone: 11-04-2010 09:00-0500 BP Diastolic 72 mm[Hg] Mirella [facility]ccrack[facility] Medicine Work Phone: Comment on above: Patient Position: Sitting; Cuff Location : Left Arm; Cuff Size: Standard 11-04-2010 09:00-0500 BP Systolic 122 mm[Hg] Mirella [facility] Medicine Work Phone: Comment on above: Patient Position: Sitting; Cuff Location : Left Arm; Cuff Size: Standard 11-04-2010 09:00-0500 BSA (Body Surface Area) 1.58 m2 Mirella [facility]ccrack[facility] Medicine Work Phone: 11-04-2010 09:00-0500 Height 149.86 cm Mirella [facility] Medicine Work Phone: 11-04-2010 09:00-0500 Pulse (Heart Rate) 62 /min [facility] Medicine Work Phone: Comment on above: Pattern: Regular 11-04-2010 09:00-0500 Respiratory Rate 16 /min M[facility] Internal Medicine Work Phone: Comment on above: Pattern: Unlabored 11-04-2010 09:00-0500 Weight 63.31 kg Mirella [facility] Internal Medicine Work Phone: 10-14-2010 09:31-0500 BMI (Body Mass Index) 28.19 kg/m2 Mirella Mccracken [facility] Internal Medicine Work Phone: 10-14-2010 09:31-0500 Body weight 63.31 kg Mirella [facility] Internal Medicine Work Phone: 10-14-2010 09:31-0500 BP Diastolic 70 mm[Hg] Mirella [facility] Internal Medicine Work Phone: Comment on above: Patient Position: Sitting; Cuff Location : Left Arm; Cuff Size: Large 10-14-2010 09:31-0500 BP Systolic 132 mm[Hg] Mirella [facility] Internal Medicine Work Phone: Comment on above: Patient Position: Sitting; Cuff Location : Left Arm; Cuff Size: Large 10-14-2010 09:31-0500 BSA (Body Surface Area) 1.58 m2 Mirella [facility] Internal Medicine Work Phone: 10-14-2010 09:31-0500 Height 149.86 cm Mirella [facility] Internal Medicine Work Phone: 10-14-2010 09:31-0500 Pulse (Heart Rate) 72 /min Mirella [facility] Internal Medicine Work Phone: Comment on above: Pattern: Regular 10-14-2010 09:31-0500 Respiratory Rate 20 /min Mire[facility] Internal Medicine Work Phone: Comment on above: Pattern: Unlabored 10-14-2010 09:31-0500 Weight 63.31 kg Mirella [facility] Internal Medicine Work Phone: 07-17-2010 08:52-0400 BMI (Body Mass Index) 29.73 kg/m2 M[facility]lla [facility] Internal Medicine Work Phone: 07-17-2010 08:52-0400 Body weight 66.76 kg Mirella [facility] Internal Medicine Work Phone: 07-17-2010 08:52-0400 BP Diastolic 78 mm[Hg] Mirella [facility] Internal Medicine Work Phone: Comment on above: Patient Position: Sitting; Cuff Location : Left Arm; Cuff Size: Large 07-17-2010 08:52-0400 BP Systolic 138 mm[Hg] Mirella [facility] Internal Medicine Work Phone: Comment on above: Patient Position: Sitting; Cuff Location : Left Arm; Cuff Size: Large 07-17-2010 08:52-0400 BSA (Body Surface Area) 1.62 m2 Mirella [facility] Internal Medicine Work Phone: 07-17-2010 08:52-0400 Height 149.86 cm Mirella [facility] Internal Medicine Work Phone: 07-17-2010 08:52-0400 Pulse (Heart Rate) 60 /min Mirella [facility] Internal Medicine Work Phone: Comment on above: Pattern: Regular 07-17-2010 08:52-0400 Respiratory Rate 20 /min Mirella [facility] Internal Medicine Work Phone: Comment on above: Pattern: Unlabored 07-17-2010 08:52-0400 Weight 66.76 kg Mirella [facility] Internal Medicine Work Phone: 06-17-2010 10:04-0400 BMI (Body Mass Index) 29.6 kg/m2 Mirella [facility] Internal Medicine Work Phone: 06-17-2010 10:04-0400 Body weight 66.48 kg Mirella [facility] Internal Medicine Work Phone: 06-17-2010 10:04-0400 BP Diastolic 70 mm[Hg] Mirella [facility] Internal Medicine Work Phone: Comment on above: Patient Position: Sitting; Cuff Location : Left Arm; Cuff Size: Large 06-17-2010 10:04-0400 BP Systolic 122 mm[Hg] Mirella [facility] Internal Medicine Work Phone: Comment on above: Patient Position: Sitting; Cuff Location : Left Arm; Cuff Size: Large 06-17-2010 10:04-0400 BSA (Body Surface Area) 1.62 m2 Mirella [facility] Internal Medicine Work Phone: 06-17-2010 10:04-0400 Height 149.86 cm Mirella [facility] Internal Medicine Work Phone: 06-17-2010 10:04-0400 Pulse (Heart Rate) 68 /min Mirella [facility] Internal Medicine Work Phone: Comment on above: Pattern: Regular 06-17-2010 10:04-0400 Respiratory Rate 20 /min Mire[facility] Internal Medicine Work Phone: Comment on above: Pattern: Unlabored 06-17-2010 10:04-0400 Weight 66.48 kg Mirella [facility] Internal Medicine Work Phone: 01-25-2010 13:25-0400 Body weight 66.91 kg Mirella [facility] Internal Medicine Work Phone: 01-25-2010 13:25-0400 BP Diastolic 76 mm[Hg] Mirella [facility] Internal Medicine Work Phone: Comment on above: Patient Position: Sitting; Cuff Location : Left Arm; Cuff Size: Standard 01-25-2010 13:25-0400 BP Systolic 132 mm[Hg] Mirella [facility] Internal Medicine Work Phone: Comment on above: Patient Position: Sitting; Cuff Location : Left Arm; Cuff Size: Standard 01-25-2010 13:25-0400 Pulse (Heart Rate) 68 /min Mirella [facility] Internal Medicine Work Phone: Comment on above: Pattern: Regular 01-25-2010 13:25-0400 Respiratory Rate 18 /min Mirella [facility] Internal Medicine Work Phone: Comment on above: Pattern: Unlabored 01-25-2010 13:25-0400 Weight 66.91 kg Mirella [facility] Internal Medicine Work Phone: 12-13-2009 11:12-0400 BMI (Body Mass Index) 29.32 kg/m2 Mirella Mccracken [facility] Internal Medicine Work Phone: 12-13-2009 11:12-0400 Body weight 65.86 kg Mirella [facility] Internal Medicine Work Phone: 12-13-2009 11:12-0400 BP Diastolic 78 mm[Hg] Mire[facility] Internal Medicine Work Phone: Comment on above: Patient Position: Sitting; Cuff Location : Left Arm; Cuff Size: Large 12-13-2009 11:12-0400 BP Systolic 118 mm[Hg] Mirella [facility] Internal Medicine Work Phone: Comment on above: Patient Position: Sitting; Cuff Location : Left Arm; Cuff Size: Large 12-13-2009 11:12-0400 BSA (Body Surface Area) 1.61 m2 Mirella [facility] Internal Medicine Work Phone: 12-13-2009 11:12-0400 Height 149.86 cm Mirella [facility] Internal Medicine Work Phone: 12-13-2009 11:12-0400 Pulse (Heart Rate) 64 /min Mirella [facility] Internal Medicine Work Phone: Comment on above: Pattern: Regular 12-13-2009 11:12-0400 Respiratory Rate 20 /min Mirella [facility] Internal Medicine Work Phone: Comment on above: Pattern: Unlabored 12-13-2009 11:12-0400 Weight 65.86 kg Mirella [facility] Internal Medicine Work Phone: 10-03-2009 11:50-0500 BMI (Body Mass Index) 27.37 kg/m2 [facility] Internal Medicine Work Phone: 10-03-2009 11:50-0500 Body weight 61.46 kg Mirella [facility] Internal Medicine Work Phone: 10-03-2009 11:50-0500 BP Diastolic 78 mm[Hg] Mirella [facility] Internal Medicine Work Phone: Comment on above: Patient Position: Sitting; Cuff Location : Left Arm; Cuff Size: Large 10-03-2009 11:50-0500 BP Systolic 120 mm[Hg] Mirella [facility] Internal Medicine Work Phone: Comment on above: Patient Position: Sitting; Cuff Location : Left Arm; Cuff Size: Large 10-03-2009 11:50-0500 BSA (Body Surface Area) 1.56 m2 Mirella [facility] Internal Medicine Work Phone: 10-03-2009 11:50-0500 Height 149.86 cm Mirella [facility] Internal Medicine Work Phone: 10-03-2009 11:50-0500 Pulse (Heart Rate) 64 /min Mirella [facility] Internal Medicine Work Phone: Comment on above: Pattern: Regular 10-03-2009 11:50-0500 Respiratory Rate 20 /min Mirella [facility] Internal Medicine Work Phone: Comment on above: Pattern: Unlabored 10-03-2009 11:50-0500 Weight 61.46 kg Mirella [facility] Internal Medicine Work Phone: 01-17-2009 07:54-0400 BMI (Body Mass Index) 27.37 kg/m2 Mirella [facility] [employer] Internal Medicine Work Phone: 01-17-2009 07:54-0400 Body weight 61.46 kg Mirella [facility] Internal Medicine Work Phone: 01-17-2009 07:54-0400 BP Diastolic 60 mm[Hg] Mirella [facility] Internal Medicine Work Phone: Comment on above: Patient Position: Sitting; Cuff Location : Left Arm; Cuff Size: Large 05-06-2009 07:54-0400 BP Systolic 112 mm[Hg] Mirella [facility] Internal Medicine Work Phone: Comment on above: Patient Position: Sitting; Cuff Location : Left Arm; Cuff Size: Large 01-17-2009 07:54-0400 BSA (Body Surface Area) 1.56 m2 Mirella [facility] Internal Medicine Work Phone: 01-17-2009 07:54-0400 Head Circumference 0 cm Mirella [facility] Internal Medicine Work Phone: 01-17-2009 07:54-0400 Height 149.86 cm Mirella [facility] Internal Medicine Work Phone: 01-17-2009 07:54-0400 Pulse (Heart Rate) 64 /min Mirella [facility] Internal Medicine Work Phone: Comment on above: Pattern: Regular 01-17-2009 07:54-0400 Respiratory Rate 20 /min Mirella [facility] Internal Medicine Work Phone: Comment on above: Pattern: Unlabored 01-17-2009 07:54-0400 Weight 61.46 kg Mirella [facility] Internal Medicine Work Phone: 01-12-2009 07:52-0400 BMI (Body Mass Index) 27.37 kg/m2 Mirella Mccracken [facility] Internal Medicine Work Phone: 01-12-2009 07:52-0400 Body weight 61.46 kg Mirella [facility] Internal Medicine Work Phone: 01-12-2009 07:52-0400 BP Diastolic 78 mm[Hg] Mirella [facility] Internal Medicine Work Phone: Comment on above: Patient Position: Sitting; Cuff Location : Left Arm; Cuff Size: Large 01-12-2009 07:52-0400 BP Systolic 122 mm[Hg] M[facility]lla [facility] Internal Medicine Work Phone: Comment on above: Patient Position: Sitting; Cuff Location : Left Arm; Cuff Size: Large 01-12-2009 07:52-0400 BSA (Body Surface Area) 1.56 m2 Mirella [facility] Internal Medicine Work Phone: 01-12-2009 07:52-0400 Head Circumference 0 cm Mirella [facility] Internal Medicine Work Phone: 01-12-2009 07:52-0400 Height 149.86 cm Mirella [facility] Internal Medicine Work Phone: 01-12-2009 07:52-0400 Pulse (Heart Rate) 72 /min Mirella [facility] Internal Medicine Work Phone: Comment on above: Pattern: Regular 01-12-2009 07:52-0400 Respiratory Rate 18 /min Mirella [facility] Internal Medicine Work Phone: Comment on above: Pattern: Unlabored 01-12-2009 07:52-0400 Weight 61.46 kg Mirella [facility] Internal Medicine Work Phone: 01-02-2009 09:31-0400 BMI (Body Mass Index) 27.37 kg/m2 Mirella [facility]ccrack[facility] Internal Medicine Work Phone: 01-02-2009 09:31-0400 Body weight 61.46 kg Mirella [facility] Internal Medicine Work Phone: 01-02-2009 09:31-0400 BP Diastolic 78 mm[Hg] Mirella [facility] Internal Medicine Work Phone: Comment on above: Patient Position: Sitting; Cuff Location : Left Arm; Cuff Size: Large 01-02-2009 09:31-0400 BP Systolic 138 mm[Hg] [facility] Work Phone: Comment on above: Patient Position: Sitting; Cuff Location : Left Arm; Cuff Size: Large 01-02-2009 09:31-0400 BSA (Body Surface Area) 1.56 m2 Mirella [facility] Internal Medicine Work Phone: 01-02-2009 09:31-0400 Head Circumference 0 cm [facility] Work Phone: 01-02-2009 09:31-0400 Height 149.86 cm Mirella [facility] Internal Medicine Work Phone: 01-02-2009 09:31-0400 Pulse (Heart Rate) 72 /min Mirella [facility] Internal Medicine Work Phone: Comment on above: Pattern: Regular 01-02-2009 09:31-0400 Respiratory Rate 20 /min Mirella [facility] Internal Medicine Work Phone: Comment on above: Pattern: Unlabored 01-02-2009 09:31-0400 Weight 61.46 kg Mirella [facility] Internal Medicine Work Phone: 12-07-2008 09:40-0400 BMI (Body Mass Index) 27.28 kg/m2 Mirella Mccracken [facility] Internal Medicine Work Phone: Comment on above: vision with correction OD= 20/50 OS=20/5 0 OU=20/50 12-07-2008 09:40-0400 Body weight 61.26 kg Mirella [facility] Internal Medicine Work Phone: Comment on above: vision with correction OD= 20/50 OS=20/5 0 OU=20/50 12-07-2008 09:40-0400 BP Diastolic 78 mm[Hg] [facility] Work Phone: Comment on above: Patient Position: Sitting; Cuff Location : Left Arm; Cuff Size: Large vision with correcti on OD= 20/50 OS=20/50 OU=20/50 12-07-2008 09:40-0400 BP Systolic 122 mm[Hg] [facility] Work Phone: Comment on above: Patient Position: Sitting; Cuff Location : Left Arm; Cuff Size: Large vision with correcti on OD= 20/50 OS=20/50 OU=20/50 12-07-2008 09:40-0400 BSA (Body Surface Area) 1.56 m2 [facility] Work Phone: Comment on above: vision with correction OD= 20/50 OS=20/5 0 OU=20/50 12-07-2008 09:40-0400 Head Circumference 0 cm Mirella [facility] Internal Medicine Work Phone: Comment on above: vision with correction OD= 20/50 OS=20/5 0 OU=20/50 12-07-2008 09:40-0400 Height 149.86 cm Mirella [facility] Medicine Work Phone: Comment on above: vision with correction OD= 20/50 OS=20/5 0 OU=20/50 12-07-2008 09:40-0400 Pulse (Heart Rate) 72 /min Mirella [facility] Internal Medicine Work Phone: Comment on above: Pattern: Regular vision with correcti on OD= 20/50 OS=20/50 OU=20/50 12-07-2008 09:40-0400 Respiratory Rate 20 /min Mirella [facility] Internal Medicine Work Phone: Comment on above: Pattern: Unlabored vision with correcti on OD= 20/50 OS=20/50 OU=20/50 12-07-2008 09:40-0400 Weight 61.26 kg Mirella [facility] Internal Medicine Work Phone: Comment on above: vision with correction OD= 20/50 OS=20/5 0 OU=20/50 10-04-2008 09:20-0500 BMI (Body Mass Index) 26.31 kg/m2 Mirella Mccracken [facility] Internal Medicine Work Phone: 10-04-2008 09:20-0500 Body weight 59.08 kg [facility] Internal Medicine Work Phone: 10-04-2008 09:20-0500 BP Diastolic 76 mm[Hg] [facility] Internal Medicine Work Phone: Comment on above: Patient Position: Sitting; Cuff Location : Left Arm; Cuff Size: Large 10-04-2008 09:20-0500 BP Systolic 124 mm[Hg] [facility] Internal Medicine Work Phone: Comment on above: Patient Position: Sitting; Cuff Location : Left Arm; Cuff Size: Large 10-04-2008 09:20-0500 BSA (Body Surface Area) 1.54 m2 [facility] Internal Medicine Work Phone: 10-04-2008 09:20-0500 Head Circumference 0 cm Mirella [facility] Internal Medicine Work Phone: 10-04-2008 09:20-0500 Height 149.86 cm Mirella [facility] Internal Medicine Work Phone: 10-04-2008 09:20-0500 Pulse (Heart Rate) 72 /min Mirella [facility] Internal Medicine Work Phone: Comment on above: Pattern: Regular 10-04-2008 09:20-0500 Respiratory Rate 20 /min Mirella [facility] Internal Medicine Work Phone: Comment on above: Pattern: Unlabored 10-04-2008 09:20-0500 Weight 59.08 kg Mirella [facility] Internal Medicine Work Phone: 09-21-2008 14:19-0500 BMI (Body Mass Index) 26.9 kg/m2 Mirella Mccracken [facility] Internal Medicine Work Phone: 09-21-2008 14:19-0500 Body weight 60.41 kg Mirella [facility] Internal Medicine Work Phone: 09-21-2008 14:19-0500 BP Diastolic 80 mm[Hg] Mirella [facility] Internal Medicine Work Phone: Comment on above: Patient Position: Sitting; Cuff Location : Left Arm; Cuff Size: Standard 09-21-2008 14:19-0500 BP Systolic 142 mm[Hg] Mirella [facility] Internal Medicine Work Phone: Comment on above: Patient Position: Sitting; Cuff Location : Left Arm; Cuff Size: Standard 09-21-2008 14:19-0500 BSA (Body Surface Area) 1.55 m2 Mirella [facility] Internal Medicine Work Phone: 09-21-2008 14:19-0500 Head Circumference 0 cm Mirella [facility] Internal Medicine Work Phone: 09-21-2008 14:19-0500 Height 149.86 cm Mirella [facility] Internal Medicine Work Phone: 09-21-2008 14:19-0500 Pulse (Heart Rate) 64 /min Mirella [facility] Internal Medicine Work Phone: Comment on above: Pattern: Regular 09-21-2008 14:19-0500 Respiratory Rate 20 /min Mirella [facility] Internal Medicine Work Phone: Comment on above: Pattern: Unlabored 09-21-2008 14:19-0500 Weight 60.41 kg Mirella [facility] Internal Medicine Work Phone: 08-24-2008 13:56-0500 BMI (Body Mass Index) 26.9 kg/m2 Mirella Mccracken [facility] Internal Medicine Work Phone: 08-24-2008 13:56-0500 Body weight 60.41 kg Mirella [facility] Internal Medicine Work Phone: 08-24-2008 13:56-0500 BP Diastolic 88 mm[Hg] Mirella [facility] Internal Medicine Work Phone: Comment on above: Patient Position: Sitting; Cuff Location : Left Arm; Cuff Size: Standard 08-24-2008 13:56-0500 BP Systolic 142 mm[Hg] Mirella [facility] Internal Medicine Work Phone: Comment on above: Patient Position: Sitting; Cuff Location : Left Arm; Cuff Size: Standard 08-24-2008 13:56-0500 BSA (Body Surface Area) 1.55 m2 Mirella [facility] Internal Medicine Work Phone: 08-24-2008 13:56-0500 Head Circumference 0 cm Mirella [facility] Internal Medicine Work Phone: 08-24-2008 13:56-0500 Height 149.86 cm Mirella [facility] Internal Medicine Work Phone: 08-24-2008 13:56-0500 Pulse (Heart Rate) 80 /min Mirella [facility] Internal Medicine Work Phone: Comment on above: Pattern: Regular 08-24-2008 13:56-0500 Respiratory Rate 20 /min Mirella [facility] Internal Medicine Work Phone: Comment on above: Pattern: Unlabored 08-24-2008 13:56-0500 Weight 60.41 kg Mirella [facility] Internal Medicine Work Phone: 06-28-2008 14:04-0400 BMI (Body Mass Index) 26.93 kg/m2 Mirella Mccracken [facility] Internal Medicine Work Phone: 06-28-2008 14:04-0400 Body weight 60.47 kg Mirella [facility] Internal Medicine Work Phone: 06-28-2008 14:04-0400 BP Diastolic 78 mm[Hg] Mirella [facility] Internal Medicine Work Phone: Comment on above: Patient Position: Sitting; Cuff Location : Left Arm; Cuff Size: Standard 06-28-2008 14:04-0400 BP Systolic 140 mm[Hg] Mirella [facility] Internal Medicine Work Phone: Comment on above: Patient Position: Sitting; Cuff Location : Left Arm; Cuff Size: Standard 06-28-2008 14:04-0400 BSA (Body Surface Area) 1.55 m2 Mirella [facility] Internal Medicine Work Phone: 06-28-2008 14:04-0400 Head Circumference 0 cm Mirella [facility] Internal Medicine Work Phone: 06-28-2008 14:04-0400 Height 149.86 cm Mirella [facility] Internal Medicine Work Phone: 06-28-2008 14:04-0400 Pulse (Heart Rate) 68 /min Mirella [facility] Internal Medicine Work Phone: Comment on above: Pattern: Regular 06-28-2008 14:04-0400 Respiratory Rate 16 /min Mirella [facility] Internal Medicine Work Phone: Comment on above: Pattern: Unlabored 06-28-2008 14:04-0400 Weight 60.47 kg Mirella [facility] Internal Medicine Work Phone: Encounters Encounter Date Encounter Type Care Provider Facility Start: 07-17-2025 ambulatory Efewongbe Oleghe OLS Fa cility:[facility] Start: 07-12-2025 ambulatory Efenriquetaongmacarena Christiansone OLS Fa cility:[facility] Start: 06-28-2025 End: 06-28-2025 Emergency department patient visit Dr. Aric Oneil MD -Emergency Department Work Phone: Start: 06-19-2025 Registered Referred Yesika Dolan Start: 06-19-2025 End: 06-19-2025 ambulatory Efky Christiansone OLS Facility:[facility] Start: 06-03-2025 ambulatory Efky Christiansone OLS Fa cility:[facility] Start: 06-03-2025 Registered Referred Yesika Dolan Start: 05-22-2025 ambulatory Efky Faust OLS Fa cility:[facility] Start: 05-22-2025 Registered Referred Yesika Dolan Start: 05-16-2025 End: 05-16-2025 ambulatory Yesika Faust [place] [place] Start: 05-16-2025 Registered Referred Yesika Dolan Start: 05-16-2025 End: 05-16-2025 ambulatory Yesika Christiansone OLS Facility:[facility] Start: 04-20-2025 End: 04-20-[address] Yesika Faust MD Work Phone: -[facility] [place][Note 2] Start: 04-20-2025 End: 04-20-2025 Patient encounter procedure Miguel YATES -[facility] [place][Note 2] Work Phone: Start: 04-14-2025 Registered Referred Yesika Dolan Start: 04-14-2025 End: 04-14-2025 ambulatory Efenriquetadenae VICENTE Facility:[facility] Start: 03-20-2025 End: 03-20-[address] Yesika Faust MD Work Phone: [facility] Start: 03-20-2025 End: 03-20-2025 Patient encounter procedure Zeina MEEK -[facility] [place][Note 2] Work Phone: Start: 03-14-2025 End: 03-14-[address] Yesika Faust MD Work Phone: [facility] Start: 03-14-2025 End: 03-14-[address] Yesika Faust MD -[facility] [place][Note 2] Work Phone: Start: 03-14-2025 Registered Referred Yesika Dolan Start: 03-14-2025 End: 03-14-2025 ambulatory Yesika VICENTE Facility:[facility] Start: 03-06-2025 Registered Referred Yesika Dolan Start: 03-06-2025 End: 03-06-[address] Yesika Faust MD Work Phone: [facility] Start: 03-06-2025 End: 03-06-2025 Patient encounter procedure Zeina MEEK [facility] Work Phone: Start: 02-27-2025 Registered Referred Yesika Dolan Start: 02-27-2025 End: 02-27-2025 ambulatory Yesika VICENTE Facility:[facility] Start: 02-23-2025 End: 02-23-[address] Yesika Faust MD Work Phone: [facility] Start: 02-23-2025 End: 02-23-2025 Patient encounter procedure Miguel YATES -[facility] [place][Note 2] Work Phone: Start: 02-13-2025 ambulatory Yesika VICENTE Fa cility:[facility] Start: 02-13-2025 Registered Referred Yesika Dolan Start: 01-31-2025 End: 01-31-[address] Yesika Faust MD Work Phone: -[facility] [place][Note 2] Start: 01-31-2025 End: 01-31-[address] Yesika Faust MD -[facility] [place][Note 2] Work Phone: Start: 01-23-2025 Registered Referred Zeina Dolan Start: 01-23-2025 End: 01-23-2025 ambulatory Yesika Faust Facility:[facility] Start: 01-18-2025 End: 01-18-2025 Departed Referred Yesika Dolan Start: 01-18-2025 Registered Referred Yesika Dolan Start: 01-18-2025 End: 01-18-2025 ambulatory Yesika VICENTE Facility:[facility] Start: 01-14-2025 End: 01-14-[address] Yesika Faust MD Work Phone: [facility] Work Phone: Start: 01-14-2025 End: 01-14-2025 Departed Referred Yesika Dolan Start: 01-14-2025 End: 01-14-2025 ambulatory Yesika VICENTE Facility:[facility] Start: 01-12-2025 End: 01-12-[address] Yesika Faust MD Work Phone: [facility] Work Phone: Start: 01-12-2025 End: 01-12-2025 Departed Referred Yesika Dolan Start: 01-12-2025 Registered Referred Yesika Dolan Start: 01-12-2025 End: 01-12-2025 ambulatory Yesika VICENTE Facility:[facility] Start: 12-16-2024 End: 12-16-[address] Yesika Faust MD Work Phone: [facility] Work Phone: Start: 12-16-2024 End: 12-16-2024 Patient encounter procedure Zeina MEEK -[facility] [place][Note 2] Work Phone: Start: 12-14-2024 End: 12-14-[address] Yesika Faust MD Work Phone: [facility] Work Phone: Start: 12-14-2024 End: 12-14-2024 Departed Referred Yesika Dolan Start: 12-14-2024 Registered Referred Yesika Dolan Start: 12-14-2024 End: 12-14-2024 ambulatory Yesika VICENTE Facility:[facility] Start: 11-15-2024 End: 11-15-2024 ambulatory Efewsaeidbe Christianne Facility:[facility] Start: 11-15-2024 End: 11-15-[address] Yesika Faust MD -[facility] [place][Note 2] Work Phone: Start: 11-14-2024 End: 11-14-[address] Yesika Faust MD Work Phone: [facility] Work Phone: Start: 11-14-2024 End: 11-14-2024 Departed Referred Yesika Dolan Start: 11-14-2024 End: 11-14-2024 ambulatory Yesika VICENTE Facility:[facility] Start: 10-27-2024 End: 10-27-2024 ambulatory Efewongbe Olekathiee Facility:[facility] Start: 10-27-2024 End: 10-27-2024 Patient encounter procedure Miguel YATES -[facility] [place][Note 2] Work Phone: Start: 10-17-2024 ambulatory Yesika VICENTE Fa cility:[facility] Start: 10-17-2024 Registered Referred Yesika Dolan Start: 10-14-2024 ambulatory Efewongbe Sammye OLS Fa cility:[facility] Start: 10-14-2024 Registered Referred Yesika Dolan Start: 09-20-2024 End: 09-20-2024 ambulatory Efewongbe Sammye Facility:[facility] Start: 09-20-2024 End: 09-20-[address] Yesika Faust MD -[facility] [place][Note 2] Work Phone: Start: 09-16-2024 ambulatory Efewongbe Sammye OLS Fa cility:[facility] Start: 09-16-2024 Registered Referred Yesika Dolan Start: 08-16-2024 End: 08-16-2024 Departed Referred Yesika Dolan Start: 08-16-2024 End: 08-16-2024 ambulatory Efenriquetaongbe Sammye OLS Facility:[facility] Start: 08-09-2024 End: 08-09-2024 ambulatory Efewongbe Sammye Facility:[facility] Start: 08-04-2024 End: 08-04-2024 ambulatory [facility] [employer] Facility:[facility] Start: 08-04-2024 End: 08-04-2024 ambulatory Efewongbe Oleghe OLS Facility:[facility] Start: 08-02-2024 End: 08-02-2024 ambulatory Efewongbe Oleghe OLS Facility:[facility] Start: 07-28-2024 End: 07-28-2024 ambulatory [facility] [employer] Facility:[facility] Start: 12-22-2023 End: 12-22-[address] Cl Tsang Work Phone: [facility] Work Phone: Start: 11-30-2023 End: 11-30-[address] Cl Tsang Work Phone: [facility] Work Phone: Start: 11-17-2023 End: 11-17-[address] Cl Tsang Work Phone: [facility] Work Phone: Start: 11-17-2023 End: 11-17-[address] Cl Tsang Work Phone: [facility] Start: 10-20-2023 End: 10-20-[address] Cl Tsang Work Phone: [facility] Work Phone: Start: 10-08-2023 End: 10-08-[address] Cl Tsang Work Phone: [facility] Work Phone: Start: 08-25-2023 End: 08-25-[address] Cl Tsang Work Phone: [facility] Work Phone: Start: 08-18-2023 End: 08-18-[address] Cl Tsang Work Phone: [facility] Work Phone: Start: 08-18-2023 End: 08-18-[address] Cl Tsang Work Phone: [facility] Start: 06-30-2023 End: 06-30-[address] Cl Tsang Work Phone: [facility] Work Phone: Start: 06-08-2023 End: 06-08-[address] Cl Tsang Work Phone: [facility] Work Phone: Start: 06-04-2023 End: 06-04-[address] Cl Tsang Work Phone: [facility] Work Phone: Start: 05-28-2023 End: 05-28-[address] Cl Tsang Work Phone: [facility] Work Phone: Start: 05-21-2023 End: 05-21-[address] Cl Tsang Work Phone: [facility] Work Phone: Start: 05-19-2023 End: 05-19-[address] Cl Tsang Work Phone: [facility] Start: 05-13-2023 End: 05-13-[address] Cl Tsang Work Phone: [facility] Work Phone: Start: 04-09-2023 End: 04-09-[address] Cl Tsang Work Phone: [facility] Work Phone: Start: 04-07-2023 End: 04-07-[address] Cl Tsang Work Phone: [facility] Work Phone: Start: 02-17-2023 End: 02-17-[address] Cl Tsang Work Phone: [facility] Work Phone: Start: 02-17-2023 End: 02-17-[address] Cl Tsang Work Phone: [facility] Work Phone: Start: 02-17-2023 End: 02-17-[address] Cl Tsang Work Phone: [facility] Start: 02-10-2023 End: 02-10-[address] Cl Tsang Work Phone: [facility] Work Phone: Start: 01-12-2023 End: 01-12-[address] Cl Tsang Work Phone: [facility] Work Phone: Start: 01-12-2023 End: 01-12-[address] Cl Tsang Work Phone: [facility] Start: 12-29-2022 End: 12-29-[address] lC Tsang Work Phone: [facility] Start: 12-23-2022 End: 12-23-[address] Cl Tsang Work Phone: [facility] Start: 12-05-2022 End: 12-05-[address] Cl Tsang Work Phone: [facility] Start: 11-18-2022 End: 11-18-[address] Cl Tsang Work Phone: [facility] Work Phone: Start: 11-18-2022 End: 11-18-[address] Cl Tsang Work Phone: [facility] Start: 10-28-2022 End: 10-28-[address] Cl Tsang Work Phone: [facility] Start: 10-17-2022 End: 10-17-[address] Cl Tsang Work Phone: [facility] Start: 10-08-2022 End: 10-08-[address] Cl Tsang Work Phone: [facility] Start: 09-01-2022 End: 09-01-[address] Cl Tsang Work Phone: [facility] Start: 08-19-2022 End: 08-19-[address] Cl Tsang Work Phone: [facility] Work Phone: Start: 08-19-2022 End: 08-19-[address] Cl Tsang Work Phone: [facility] Start: 07-29-2022 End: 07-29-[address] Cl Tsang Work Phone: [facility] Start: 05-29-2022 End: 05-30-[address] Cl Tsang Work Phone: [facility] Start: 05-20-2022 End: 05-20-[address] Cl Tsang Work Phone: [facility] Work Phone: Start: 05-20-2022 End: 05-20-[address] Cl Tsang Work Phone: [facility] Start: 04-18-2022 End: 04-18-[address] Cl Tsang Work Phone: [facility] Start: 03-07-[address] Cl herrera Work Phone: [facility] Start: 01-13-2022 End: 01-13-[address] Cl Tsang Work Phone: [facility] Start: 11-14-2021 End: 11-14-2021 Patient encounter procedure TRUDY YATES Work Phone: [facility] Start: 11-12-2021 End: 11-12-2021 Departed Referred TRUDY YATES Work Phone: [facility] Start: 09-30-2021 End: 09-30-2021 Patient encounter procedure TRUDY YATES Work Phone: [facility] Start: 05-05-2019 Review Mirella [...] minutes Mirella [facility] Start: 09-18-2017 End: 09-18-2017 Office outpatient visit 25 minutes Mirella [facility] Start: 05-07-2017 End: 05-07-2017 Office outpatient visit 25 minutes Mirella [facility] Start: 03-26-2017 End: 03-26-2017 Office outpatient visit 10 minutes Mirella [facility] Start: 12-25-2016 End: 12-25-2016 Office outpatient visit 25 minutes Mirella [facility] Start: 09-25-2016 End: 09-25-2016 Office outpatient visit 15 minutes Mirella [facility] Start: 09-16-2016 End: 09-17-2016 Office outpatient visit 5 minutes Mirella [facility] Start: 07-02-2016 End: 07-02-2016 Phone Encounter Mirella [facility] Start: 07-01-2016 End: 07-01-2016 Office outpatient visit 5 minutes Mirella [facility] Start: 06-25-2016 End: 06-25-2016 Office outpatient visit 25 minutes Mirella [facility] Start: 05-21-2016 End: 05-21-2016 Office outpatient visit 10 minutes Mirella [facility] Start: 01-04-2016 End: 01-04-2016 Office outpatient visit 25 minutes Mirella [facility] Start: 12-06-2015 End: 12-06-2015 Office [...] End: 07-06-2015 Office outpatient visit 25 minutes [facility]ri[facility] Start: 05-30-2015 End: 06-04-2015 Office outpatient visit 5 minutes [facility] Start: 05-23-2015 End: 05-23-2015 Annotation/Addendum Mirella [facility] Start: 05-23-2015 End: 05-23-2015 Office outpatient visit 5 minutes [facility] Start: 05-16-2015 End: 05-16-2015 Office outpatient visit 5 minutes [facility] Start: 05-09-2015 End: 05-09-2015 Office outpatient visit 5 minutes [facility] Start: 04-26-2015 End: 04-26-2015 Phone Encounter Mirella [facility] Start: 04-19-2015 End: 04-19-2015 Office outpatient visit 40 minutes [facility] Start: 01-11-2015 End: 01-11-2015 Office outpatient visit 25 minutes [facility] Start: 10-31-2014 End: 10-31-2014 Office outpatient visit 15 minutes [facility] Start: 10-12-2014 End: 10-12-2014 Office outpatient visit 25 minutes [facility] Start: 09-11-2014 End: 09-11-2014 Phone Encounter Mirella [facility] Start: 08-31-2014 End: 08-31-2014 Office [...] Office outpatient visit 15 minutes Mirella [facility] Start: 04-17-2014 End: 04-17-2014 Office outpatient visit 15 minutes Mirella [facility]rack[facility] Start: 04-13-2014 End: 04-13-2014 Phone Encounter Mirella [facility] Start: 04-06-2014 End: 04-06-2014 Patient encounter procedure M[facility] Start: 04-06-2014 End: 04-06-2014 Patient encounter procedure Mirella [facility] Start: 12-30-2013 End: 12-30-2013 Patient encounter procedure M[facility]lla [facility] Start: 12-22-2013 End: 12-22-2013 Patient encounter procedure Mirella [facility]rack[facility] Start: 12-01-2013 End: 12-01-2013 Phone Encounter Mirella [facility] Start: 12-01-2013 End: 12-01-2013 Patient encounter procedure M[facility] Start: 09-23-2013 End: 09-23-2013 Patient encounter procedure [facility] Start: 09-13-2013 End: 09-13-2013 Phone Encounter Mirella [facility] Start: 08-01-2013 End: 08-01-2013 Patient encounter procedure Mirella [facility] Start: 07-04-2013 End: 07-04-2013 Patient encounter procedure Mirella [facility]ccrack[facility] Start: 06-27-2013 End: 06-27-2013 Patient encounter procedure Mirella [facility]ccrack[facility] Start: 06-20-2013 End: 06-20-2013 Patient encounter procedure Mirella [facility]ccrack[facility] Start: 06-08-2013 End: 06-08-2013 Patient encounter procedure Mirella [facility]ccrack[facility] Start: 05-20-2013 End: 05-20-2013 Patient encounter procedure Mirella [facility]ccrack[facility] Start: 04-22-2013 End: 04-22-2013 Patient encounter procedure Mirella [facility]ccrack[facility] Start: 04-15-2013 End: 04-15-2013 Patient encounter procedure Mirella [facility]rack[facility] Start: 03-31-2013 End: 03-31-2013 Patient encounter procedure Mirella [facility]ccrack[facility] Start: 02-28-2013 End: 02-28-2013 Patient encounter procedure Mirella [facility]ccrack[facility] Start: 11-15-2012 End: 11-15-2012 Patient encounter procedure Mirella [facility] Start: 10-25-2012 End: 10-25-2012 Patient encounter procedure Mirella [facility] Start: 10-21-2012 End: 10-21-2012 Patient encounter procedure Mirella [facility] Start: 09-30-2012 End: 09-30-2012 Patient encounter procedure Mirella [facility]rack[facility] Start: 09-30-2012 End: 09-30-2012 Phone Encounter Mirellaleatha Mccracken [facility] Start: 09-16-2012 End: 09-16-2012 Patient encounter procedure Mirella [facility]rack[facility] Start: 05-27-2012 End: 05-28-2012 Nursing evaluation of patient and report Mirellaleatha [facility] Start: 03-11-2012 End: 03-11-2012 Patient encounter procedure Mirella [facility]rack[facility] Start: 03-04-2012 End: 03-05-2012 Patient encounter procedure Mirellaleatha [facility] Start: 02-25-2012 End: 02-25-2012 Patient encounter procedure Mirella [facility] Start: 02-05-2012 End: 02-05-2012 Phone Encounter Mirella Nicoledeidre [facility] Start: 02-04-2012 End: 02-04-2012 Phone Encounter Mirella Mccracken [facility] Start: 01-30-2012 End: 01-30-2012 Patient encounter procedure Mirella [facility] Start: 01-15-2012 End: 01-15-2012 Patient encounter procedure Mirella [facility] Start: 12-31-2011 End: 12-31-2011 Patient encounter procedure Mirella [facility] Start: 12-26-2011 End: 12-26-2011 Patient encounter procedure Mirella [facility] Start: 12-24-2011 End: 12-24-2011 Patient encounter procedure Mirellaleatha [facility] Start: 12-15-2011 End: 12-15-2011 Patient encounter procedure Mirellaleatha [facility] Start: 11-26-2011 End: 11-26-2011 Patient encounter procedure Mirella [facility] Start: 11-12-2011 End: 11-12-2011 Patient encounter procedure Mirellaleatha [facility] Start: 11-06-2011 End: 11-06-2011 Office outpatient visit 25 minutes Mirella [facility] Start: 10-22-2011 End: 10-22-2011 Annotation/Addendum Mirella [facility] Start: 10-21-2011 End: 10-21-2011 Office outpatient visit 25 minutes Mirella [facility]ccrack[facility] Start: 06-05-2011 End: 06-05-2011 Patient encounter procedure Mirella [facility] Start: 05-08-2011 End: 05-08-2011 Patient encounter procedure Mirella [facility]ccrack[facility] Start: 05-07-2011 End: 05-07-2011 Office outpatient visit 15 minutes Mirella [facility]ccracken [facility] Start: 05-06-2011 End: 05-06-2011 Office outpatient visit 15 minutes Mirella [facility]rack[facility] Start: 11-06-2010 End: 11-06-2010 Office outpatient visit 15 minutes Mirella [facility]ccrack[facility] Start: 11-04-2010 End: 11-04-2010 Office outpatient visit 15 minutes Mirella [facility]ccrack[facility] Start: 10-14-2010 End: 10-14-2010 Patient encounter procedure Mirella [facility]ccrack[facility] Start: 07-17-2010 End: 07-17-2010 Patient encounter procedure Mirella [facility]ccrack[facility] Start: 06-17-2010 End: 06-17-2010 Patient encounter procedure Mirella [facility]ccrack[facility] Start: 01-25-2010 End: 01-25-2010 Patient encounter procedure Mirella [facility]ccrack[facility] Start: 12-13-2009 End: 12-13-2009 Patient encounter procedure Mirella [facility]ccrack[facility] Start: 10-03-2009 End: 10-03-2009 Office outpatient visit 10 minutes Mirella [facility]ccrack[facility] Start: 06-13-2009 End: 06-13-2009 Patient encounter procedure Mirella [facility]ccrack[facility] Start: 01-17-2009 End: 01-17-2009 Office outpatient visit 15 minutes Mirella [facility]ccrack[facility] Start: 01-12-2009 End: 01-12-2009 Office outpatient visit 25 minutes Mirella [facility]rack[facility] Start: 01-02-2009 End: 01-02-2009 Patient encounter procedure Mirella [facility]ccrack[facility] Start: 12-07-2008 End: 12-07-2008 Patient encounter procedure Mirella [facility]ccrack[facility] Start: 10-04-2008 End: 10-04-2008 Patient encounter procedure Mirella [facility]ccrack[facility] Start: 09-21-2008 End: 09-21-2008 Office outpatient visit 25 minutes Mirella Mccracken [facility] Start: 08-24-2008 End: 08-24-2008 Patient encounter procedure Mirella [facility]ccrack[facility] Start: 06-28-2008 End: 06-28-2008 Patient encounter procedure Mirella [facility]ccrack[facility] Start: 06-28-2008 End: 06-28-2008 Patient encounter procedure Mirella [facility] Start: 06-26-2008 End: 06-26-2008 Historical Summary Mirella [facility] Procedures Date Procedure Procedure Detail [...] Start: 10-17-2024 Measurement of renal function Dr. eYsika Faust MD Work Phone: Comment on above: [...] 1 View (Portable) Comments: See Note; NOTES: [facility] Imaging Services [address] [place] [address] Chest 1 View (Portable) MR#: [id number] Acct: [id number] Name: AGUSTIN GARCIA Rep #: [id number] : 1940 F 79 From: Antoni Gaviria MD PCP: Mirella Mccracken DO Status: REG SDC Study: Chest 1 View (Portable) Date of Exam: 05/27/19 Exam# [id number] Ordering Dr: Satish Gonzales MD STUDY: X-RAY [...] CC: Satish Gonzales MD; Mirella Mccracken DO Strip Winder: Signed Mirella Mccracken Start: 05-27-2019 End: 05-27-2019 Shoulder min 2 Views Comments: See Note; NOTES: [facility] Imaging Services [address] [place] [address] Shoulder min 2 Views MR#: [id number] Acct: [id number] Name: AGUSTIN GARCIA Rep #: [id number] : 1940 F 79 From: Antoni Gaviria MD PCP: Mirella Mccracken DO Status: REG [facility] Study: Shoulder min 2 Views Date of Exam: 05/27/19 Exam# [id number] Ordering Dr: Aury Hyde MD STUDY: X-RAY [...] 17:22 EDT , Service support , CC: Auyr Hyde MD; Mirella Mccracken DO Strip Winder: Signed Mirella Mccracken Start: 05-27-2019 End: 05-27-2019 Operative Report Comments: See Note; NOTES: [facility] Medical Records Department [address] [place] [id number] Operative Report 05/27/19 1615 MR#: [id number] Acct: [id number] Name: RADHAAGUSTIN Clara Rep #: [id number] : 1940 79 From: Uriel Francois MD PCP: Mirella Mccracken DO Status: [facility] SD Y Location: [place] [address] Report of Operation Date of Procedure: 05/27/19 [...] went into the bladder with a 21 [place] rigid cystourethroscope cannulated the left ureteral orifice [...] No VTE Mechan Device Prophylaxis: SCD's 05/27/19 2283 <Electronically signed by Uriel Francois MD> Date Uriel Francois MD CC: Uriel Francois MD; Mirella Mccracken DO Signed Mirella Mccracken Start: 05-27-2019 End: 05-27-2019 Discharge Instruction Comments: See Note; NOTES: [facility] Medical Records Department [address] [place] [address] Instructions for Home/Discharge Instructions 05/27/191613 MR#: [id number] Acct: [id number] Name: AGUSTIN GARCIA Rep #: [id number] : 1940 79 From: Uriel Francois MD PCP: Mirella Mccracken DO Status: REG [facility] Discharge Diet: Light diet - advance as [...] weeks, please call to make an appointment. 05/27/191613 <Electronically signed by Uriel Francois MD> Date Uriel Francois MD CC: Mirella Mccracken DO Signed Mirella Mccracken Start: 05-27-2019 End: 05-27-2019 Pelvis 1 or 2 Views Comments: See Note; NOTES: [facility] Imaging Services [address] [place] [address] Pelvis 1 or 2 Views MR#: [id number] Acct: [id number] Name: AGUSTIN GARCIA Rep #: [id number] : 1940 F 79 From: Antoni Gaviria MD PCP: Mirella Mccracken DO Status: REG [facility] Study: Pelvis 1 or 2 Views Date of Exam: 05/27/19 Exam# [id number] Ordering Dr: Uriel Francois MD STUDY: X-RAY [...] CC: Uriel Francois MD; Mirella Mccracken DO Strip Winder: Signed Mirella Mccracken Start: 05-05-2019 End: 05-05-2019 Abdomen/Pelvis WITH Contrast Comments: See Note; NOTES: [facility] Imaging Services [address] [place] [address] Abdomen/Pelvis WITH Contrast MR#: [id number] Acct: [id number] Name: AGUSTIN GARCIA Rep #: [id number] : 1940 F 79 From: Zoran Reinoso MD PCP: Mirella Mccracken DO Status: REG CLI Study: Abdomen/Pelvis WITH Contrast Date of Exam: 05/05/19 Exam# [id number] Ordering Dr: Mirella Mccracken DO STUDY: CT [...] Service support , CC: Mirella Mccracken DO Strip Winder: Signed Mirella Mccracken Work Phone: Start: 03-18-2019 End: 03-18-2019 Pelvic (Non ) Comments: See Note; NOTES: [facility] Imaging Services [address] [place] [address] Pelvic (Non ) MR#: [id number] Acct: [id number] Name: AGUSTIN GARCIA Rep #: [id number] : 1940 F 78 From: Avi Fisher MD PCP: Mirella Mccracken DO Status: REG CLI Study: Pelvic (Non ) Date of Exam: 03/18/19 Exam# [id number] Ordering Dr: Mirella Mccracken DO STUDY: ULTRASOUND [...] Service support , CC: Mirella Mccracken DO Strip Winder: Signed Mirella Mccracken Work Phone: Start: 03-15-2019 End: 03-15-2019 Venous Duplex Lower Extremity Comments: See Note; NOTES: [facility] Cardiovascular Services [address] [place] [address] Venous Duplex US, Unilateral 03/15/19 1340 MR#: [id number] Acct: [id number] Name: RADHAAGUSTIN Rep #: [id number] : 1940 78 From: James Moctezuma MD [...] Dictated: 03/15/19 1340 Date Transcribed: 03/15/19 142 Strip Winder: Signed Mirella Mccracken Work Phone: Start: 11-17-2017 End: 11-17-2017 PT D/C Summary (1) Comments: See Note; NOTES: [facility] Physical Therapy [facility] [address] [place], [place] [address] Fax REHABILITATION SERVICES DISCHARGE SUMMARY MR#: [id number] Acct: [id number] Name: AGUSTIN GARCIA Rep #: [id number] : 1940 77 From: Chester GILLILANDT, OCS, CSCS Referring Dr.: Mirella Mccracken DO [...] please feel free to call me at [phone]. Thank you for the referral of this patient. Sincerely, Chester Christine, DARSHANAT, OC <Electronically signed by Chester Christine DPT, OCS, CSCS> 11/17/17 0920 CC: Mirella Mccracken DO EBG Signed Mirella Mccracken Start: 11-13-2017 End: 11-13-2017 Inital Evaluation (1) - PT Comments: See Note; NOTES: [facility] Physical Therapy [facility] [address] [place] [address] Fax REHABILITATION SERVICES INITIAL EVALUATION MR#: [id number] Acct: [id number] Name: AGUSTIN GARCIA Rep #: [id number] : 1940 77 From: Chester Christine DPT, OCS, CSCS Referring Dr.: Mirella Mccracken DO Status: REG RCR Insurance: MEDICARE PART A B [facility] Patient's Visit Information AGUSTIN GARCIA is [...] to be FAXED BACK to us at [phone] for Medicare purposes. Please let me know [...] Min 2 Views Comments: See Note; NOTES: [facility] Imaging Services [address] [place] [address] Femur Min 2 Views MR#: [id number] Acct: [id number] Name: AGUSTIN GARCIA Rep #: [id number] : 1940 F 77 From: Edward Jha MD PCP: Mirella Mccracken DO Status: REG CLI Study: Femur Min 2 Views Date of Exam: 10/15/17 Exam# [id number] Ordering Dr: Mirella Mccracken DO STUDY: X-RAY [...] Edward Jha MD at 15:48 EST Tel [phone], Service support , CC: Mirella Mccracken DO Strip Winder: Signed Mirella Mccracken Work Phone: Start: 10-15-2017 End: 10-15-2017 Hip 2-3 Views with Pelvis Comments: See Note; NOTES: [facility] Imaging Services [address] [place] [address] Hip 2-3 Views with Pelvis MR#: [id number] Acct: [id number] Name: AGUSTIN GARCIA Rep #: [id number] : 1940 F 77 From: Edward Jha MD PCP: Mirella Mccracken DO Status: REG CLI Study: Hip 2-3 Views with Pelvis Date of Exam: 10/15/17 Exam# [id number] Ordering Dr: Mirella Mccracken DO STUDY: X-RAY [...] Edward Jha MD at 15:54 EST Tel [phone], Service support , STUDY: X-RAY - PELVIS [...] Edward Jha MD at 15:55 EST Tel [phone], Service support , CC: Mirella Mccracken DO Strip Winder: Signed Mirella Mccracken Work Phone: Start: 06-05-2017 End: 06-05-2017 Follow Up Appt 6 months Jose Vargas MD Start: 06-05-2017 End: 06-05-2017 [facility] Jose Vargas MD Start: 03-26-2017 End: 03-26-2017 Ribs Uni Min 3V w/PA Chest Comments: See Note; NOTES: [facility] Imaging Services [address] [place] [address] Verdana 4d Ribs Uni Min 3V w/PA Chest MR#: [id number] Acct: [id number] Name: AGUSTIN GARCIA Rep #: [id number] : 1940 F 76 From: Tomas Pat MD PCP: Mirella Mccracken DO Status: REG CLI Study: Ribs Uni Min 3V w/PA Chest Date of Exam: 03/26/17 Exam# [id number] Ordering Dr: Stephenie Burkett MD STUDY: X-RAY [...] CC: Stephenie Burkett MD; Mirella Mccracken DO Strip Winder: Signed Stephenie Burkett Work Phone: Start: 11-13-2016 End: 11-13-2016 Kidney and Bladder Comments: See Note; NOTES: [facility] Imaging Services [address] [place] [address] Verdana 4d Kidney and Bladder MR#: [id number] Acct: [id number] Name: RADHAAGUSTIN M Rep #: [id number] : 1940 F 76 From: Mackenzie Ortega MD PCP: Mirella Mccracken DO Status: [facility] CLI Study: Kidney and Bladder Date of Exam: 11/13/16 Exam# [id number] Ordering Dr: Uriel Francois MD STUDY: RENAL [...] MD at 16:03 EST , Service support [phone], CC: Uriel Francois MD; Mirella Mccracken DO Strip Winder: Signed Mirella Mccracken Start: 11-03-2016 End: 11-03-2016 Follow Up Appt 9 months Zaria Trevino PA-C Work Phone: Start: 11-03-2016 End: 11-03-2016 PF Zaria Trevino PA-C Work Phone: Start: 07-07-2016 End: 07-07-2016 Breast Limited Unilateral Comments: See Note; NOTES: [facility] Imaging Services [address] [place] [address] Verdana 4d Breast Limited Unilateral MR#: [id number] Acct: [id number] Name: AGUSTIN GARCIA Rep #: [id number] : 1940 F 76 From: Edward Jha MD PCP: Mirella Mccracken DO Status: REG CLI Study: Breast Limited Unilateral Date of Exam: 07/07/16 Exam# [id number] Ordering Dr: Mirella Mccracken DO STUDY: ULTRASOUND [...] Edward Jha MD at 15:23 EDT Tel [phone], Service support [phone], CC: Mriella Mccracken DO Strip Winder: Signed Mirella Mccracken Work Phone: Start: 07-07-2016 End: 07-07-2016 Unilat Rt Diag Digital AND CAD Comments: See Note; NOTES: [facility] Imaging Services [address] [place] [address] Verdana 4d Unilat Rt Diag Digital AND CAD MR#: [id number] Acct: [id number] Name: AGUSTIN GARCIA Rep #: [id number] : 1940 F 76 From: Edward Jha MD PCP: Mirella Mccracken DO Status: REG CLI Study: Unilat Rt Diag Digital AND CAD Date of Exam: 07/07/16 Exam# [id number] Ordering Dr: Mirella Mccracken DO MAMMOGRAPHY - [...] Edward Jha MD at 15:21 EDT Tel [phone], Service support [phone], CC: Mirella Mccracken DO Strip Winder: Signed Mirella Mccracken Work Phone: Start: 05-21-2016 End: 05-22-2016 Foot min 3 Views Comments: See Note; NOTES: [facility] Imaging Services [address] [place] [address] Verda 4d Foot min 3 Views MR#: [id number] Acct: [id number] Name: AGUSTIN GARCIA Rep #: [id number] : 1940 F 76 From: Edward Jha MD PCP: Mirella Mccracken DO Status: REG CLI Study: Foot min 3 Views Date of Exam: 05/21/16 Exam# [id number] Ordering Dr: Mirella Mccracken DO STUDY: X-RAY [...] Edward Jha MD at 9:42 EDT Tel [phone], Service support [phone], CC: Mirella Mccracken DO Strip Winder: Signed Mirella Mccracken Work Phone: Start: 05-07-2016 End: 05-07-2016 Follow Up Appt 6 months Jose Vargas MD Start: 05-07-2016 End: 05-07-2016 [facility] Jose Vargas MD Start: 01-04-2016 End: 01-04-2016 Ecg routine ecg w/least 12 lds w/i&r [MEASUREMENTS ANALYSIS] Date of Test: 01/04/2016 10:09:41; Heart Rate: 59; TX Interval: 158; QRS: 88; QT Interval: 432; Corrected QT Interval (QTc): 431; P Wave [place]: 32; QRS Wave [place]: 10; T Wave [place]: 47; Blood Pressure: 110/64 [ECG DIAGNOSTIC STATEMENTS] Date of Test: 01/04/2016 10:09:41; Summary: Sinus Bradycardia WITHIN NORMAL LIMITS Mirella Mccracken Work Phone: Comment on above: sinus elin no acute chg Start: 11-29-2015 End: 11-29-2015 Carotid Duplex Ultrasound Comments: See Note; NOTES: [facility] Cardiovascular Services [address] [place] [address] Carotid Duplex Ultrasound 11/20/15 1035 MR#: [id number] Acct: [id number] Name: AGUSTIN GARCIA Rep #: [id number] : 1940 75 From: Miko Cutler MD [...] the left vertebral artery. Procedure Carotid Duplex 24059. The exam was diagnostic. Exam performed in department. Interpretation Summary Mild (<50%) stenosis right extracranial internal carotid. Mild (<50%) stenosis left extracranial internal carotid. Flow within the vertebral arteries is antegrade bilaterally. Ordering Physician: Zaria Bustamante Referring Physician: Mirella Mccracken M.D. Performed By: Dilshad Russo RVT 11/29/15 1556 Date Miko Cutler MD CC: Mirella Bustamante Date Dictated: 11/20/15 1035 Date Transcribed: 11/29/15 1556 Strip Winder: Signed Mirella Mccracken Start: 11-13-2015 End: 11-13-2015 Bilat Scrn Digital AND CAD Comments: See Note; NOTES: [facility] Imaging Services [address] [place] [address] Verdana 4d Bilat Scrn Digital AND CAD MR#: [id number] Acct: [id number] Name: AGUSTIN GARCIA Rep #: [id number] : 1940 F 75 From: Edward Jha MD PCP: Mirella Mccracken DO Status: REG CLI Study: Bilat Scrn Digital AND CAD Date of Exam: 11/13/15 Exam# [id number] Ordering Dr: Mirella Mccracken DO MAMMOGRAPHY - [...] delay biopsy of a clinically suspicious abnormality. [id number] Electronically Signed: Edward Jha MD at 14:46 EST Tel [phone], Service support [phone], CC: Mirella Mccracken DO Strip Winder: Signed Mirella Mccracken Work Phone: Start: 11-05-2015 [...] Cervical without Contras Comments: See Note; NOTES: [facility] Imaging Services [address] [place] [address] CAT Scan Report MR#: [id number] Acct: [id number] Name: AGUSTIN GARCIA Rep #: [id number] : 1940 F 75 From: Otoniel Tam MD PCP: Mirella Mccracken DO Status: REG CLI Study: Spine Cervical without Contras Date of Exam: 06/07/15 Exam# [id number] Ordering Dr: Louis Tsang STUDY: CT CERVICAL [...] MD at 16:59 EDT , Service support [phone], CC: Mirella Mccracken DO; [place] TSANG Strip Winder: Signed Mirella Mccracken Start: 05-22-2015 End: 05-23-2015 Spine Lumbar without Contrast Comments: See Note; NOTES: [facility] Imaging Services [address] [place] [address] CAT Scan Report MR#: [id number] Acct: [id number] Name: AGUSTIN GARCIA Rep #: [id number] : 1940 F 75 From: Ruddy Pozo MD PCP: Mirella Mccracken DO Status: REG CLI Study: Spine Lumbar without Contrast Date of Exam: 05/22/15 Exam# [id number] Ordering Dr: Louis Tsang STUDY: CT LUMBAR [...] at 10:05 EDT Tel , Service support [phone], CC: Mirella Mccracken DO; [place] TSANG Strip Winder: Signed Mirella Mccracken Start: 05-09-2015 End: 05-10-2015 Documentation of current medications Jose Vargas MD Start: 05-09-2015 End: 05-09-2015 Follow Up Appt 6 months Jose Vargas MD Start: 05-09-2015 End: 10-23-2016 Follow Up Appt Other Jose Vargas MD Start: 05-09-2015 End: 05-09-2015 MM Jose Vargas MD Start: 04-26-2015 End: 04-26-2015 Brain/Head W/WO Contrast Comments: See Note; NOTES: [facility] Imaging [place] [address] CAT Scan Report MR#: [id number] Acct: [id number] Name: AGUSTIN GARCIA Rep #: [id number] : 1940 F 74 From: Edward Jha MD PCP: Mirella Mccracken DO Status: REG CLI Study: Brain/Head W/WO Contrast Date of Exam: 04/26/15 Exam# [id number] Ordering Dr: Mirella Mccracken DO STUDY: CT [...] Edward Jha MD at 12:51 EDT Tel [phone], Service support [phone], CC: Mirella Mccracken DO Strip Winder: Signed Mirella Mccracken Work Phone: Start: 10-24-2014 End: 10-24-2014 Breast Complete Unilateral Comments: See Note; NOTES: [facility] Imaging Services [address] [place] [address] Ultrasound Report MR#: [id number] Acct: [id number] Name: AGUSTIN GARCIA Rep #: [id number] : 1940 F 74 From: Edward Jha MD PCP: Mirella Mccracken DO Status: REG CLI Study: Breast Complete Unilateral Date of Exam: 10/24/14 Exam# [id number] Ordering Dr: Mirella Mccracken DO STUDY: ULTRASOUND [...] Edward Jha MD at 11:15 EST Tel [phone], Service support [phone], CC: Mirella Mccracken DO Strip Winder: Signed Mirella Mccracken Work Phone: Start: 10-24-2014 End: 10-25-2014 Dexa Bone Density Study (HP) Comments: See Note; NOTES: [facility] Imaging Services [address] [place] [address] Bone Density Report MR#: [id number] Acct: [id number] Name: AGUSTIN GARCIA Rep #: [id number] : 1940 F 74 From: Edward Jha MD PCP: Mirella Mccracken DO Status: [facility] CLI Study: Dexa Bone Density Study (HP) Date of Exam: 10/24/14 Exam# [id number] Ordering Dr: Mirella Mccracken DO STUDY: DUAL [...] Edward Jha MD at 10:14 EST Tel [phone], Service support [phone], CC: Mirella Mccracken DO Strip Winder: Signed Mirella Mccracken Work Phone: Start: 10-19-2014 End: 10-20-2014 Bilat Scrn Digital AND CAD Comments: See Note; NOTES: [facility] Imaging Services [address] [place] [address] Breast Imaging Report MR#: [id number] Acct: [id number] Name: AGUSTIN GARCIA Rep #: [id number] : 1940 F 74 From: Edward Jha MD PCP: Mirella Mccracken DO Status: REG CLI Study: Bilat Scrn Digital AND CAD Date of Exam: 10/19/14 Exam# [id number] Ordering Dr: Mirella Mccracken DO MAMMOGRAPHY - [...] Edward Jha MD at 13:38 EST Tel [phone], Service support [phone], CC: Mirella Mccracken DO Strip Winder: Signed Mirella Mccracken Work Phone: Start: 10-10-2014 [...] Brain/Head W/WO Contrast Comments: See Note; NOTES: [facility] Imaging Services [address] [place] [address] CAT Scan Report MR#: [id number] Acct: [id number] Name: AGUSTIN GARCIA Rep #: [id number] : 1940 F 74 From: Audie Hugo MD PCP: Mirella Mccracken DO Status: REG CLI Study: Brain/Head W/WO Contrast Date of Exam: 09/08/14 Exam# [id number] Ordering Dr: Mirella Mccracken DO STUDY: CT [...] To Hugo MD at 8:17 EST Tel [phone], Service support [phone], CC: Mirella Mccracken DO Strip Winder: Signed Mirella Mccracken Work Phone: Start: 07-27-2014 End: 07-27-2014 History and Physical Exam Comments: See Note; NOTES: [facility] Medical Records Department [address] [place] [address] History and Physical 07/27/14 0753 MR#: [id number] Acct: [id number] Name: AGUSTIN GARCIA Rep #: [id number] : 1940 74 From: Nella Howard PCP: Mirella Mccracken DO Status: PRE [facility] Location: [facility] DATE OF SERVICE: 07/28/2014 PREOPERATIVE DIAGNOSIS: Painful [...] scheduled to undergo outpatient surgical intervention at [facility] on July 28, 2014. Pedal pulses are easily palpable bilaterally and consent was reviewed, signed and placed in chart. Nella Howard DPM T: NTS JOB: [id number] 07/27/14 1156 <Electronically signed by Nella Howard > Date: Time: Nella Howard CC: Mirella Mccracken DO; Nella Howard DPM Date Dictated: 07/27/14752 Date Transcribed: 07/27/14752 Strip Winder: Signed ____ I have re-examined the patient. [...] Chest W/WO Contrast Comments: See Note; NOTES: [facility] Imaging Services [address] [place] [address] CAT Scan Report MR#: [id number] Acct: [id number] Name: RADHAAGUSTIN ARAUJO Clara Rep #: [id number] : 1940 F 73 From: Edward Jha MD PCP: Status: REG CLI Study: CTA Chest W/WO Contrast Date of Exam: 12/22/13 Exam# [id number] Ordering Dr: Mirella Mccracken DO STUDY: CTA [...] at 13:14 EDT Tel , Service support [phone], CC: Mirella Mccracken DO Strip Winder: Signed Mirella Mccracken Work Phone: Start: 12-13-2013 [...] PA-C Work Phone: Start: 08-08-2013 End: 08-08-2013 MM Zaria Trevino PA-C Work Phone: Start: 08-08-2013 End: 08-08-2013 PF Zaria Trevino PA-C Work Phone: Start: 06-20-2013 End: 06-22-2013 Brain/Head w/wo Contrast Comments: See Note; NOTES: [facility] Imaging Services [address] [place] [address] CAT Scan Report MR#: [id number] Acct: [id number] Name: AGUSTIN GARCIA Rep #: [id number] : 1940 F 73 From: Audie Hugo MD PCP: Status: REG CLI Study: Brain/Head w/wo Contrast Date of Exam: 06/20/13 Exam# [id number] Ordering Dr: Stephenie Burkett MD STUDY: CT [...] ml of Isovue 370 contrast material. COMPARISON: 2/5/13 FINDINGS: Normal soft tissue structures. There is [...] June 20, 2013 at 3:17:31 PM EDT [phone] Electronically Signed BW/BW If you are the referring physician and would like to consult with the radiologist who provided this interpretation, please contact To Hugo M.D. at [phone]. If this radiologist is unavailable, you will be directed to another radiologist to assist. If you are a patient with a question regarding this report, please contact your referring physician directly. Professional Interpretation Provided By: [employer], Phone , These documents contain legally protected [...] of these documents. CC: Stephenie Burkett MD Strip Winder: Signed Stephenie Burkett Work Phone: Start: 05-04-2013 [...] [AGGREGATE] Jose Vargas MD Abdominal hysterectomy Alyson Messenger Comment on above: 1971 Abdominal hysterectomy Alyson Messenger Comment on above: 1971 Abdominal hysterectomy Alyson Messenger Comment on above: 1972 Amputation Alyson Messenger Comment on above: 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 Amputation Alyson Messenger Comment on above: 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 Amputation Alyson Messenger Comment on above: 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 Appendectomy Alyson Messenger Comment on above: 1949 Appendectomy Alyson Messenger Comment on above: 1949 Appendectomy Alyson Messenger Comment on above: 1949 Cholecystectomy Alyson richter Comment on above: 1995 Cholecystectomy Alyson richter Comment on above: 1995 Cholecystectomy Alyson richter Comment on above: 1995 Colonoscopy Alyson Messenger Comment on above: 2007 Colonoscopy Alyson Messenger Comment on above: 2007 Colonoscopy Alyson Messenger Comment on above: 2007 History of coronary artery bypass grafting Aortocoronary bypass status TRUDY YATES Work Phone: Comment on above: CABG, GALLARDO to LAD, 2 RVSV one to 1st bra nch of obtuse marginal & the other to PDA November 2011 Kidney Problems Alyson richter Comment on above: with surgery [id number] Kidney Problems Alyson richter Comment on above: with surgery [id number] Kidney Problems Alyson richter Comment on above: with surgery [id number] Ligation of fallopia n tube Alyson Dixon Comment on above: 1966 Ligation of fallopia n tube Alyson Dixon Comment on above: 1966 Ligation of fallopia n tube Alyson Dixon Comment on above: 1967 Operation on heart Alyson peter Comment on [...] Date Care Activity Detail Author Start: 06-28-2025 [facility] Start: 05-05-2019 Basic metabolic panel calcium total Metabolic Panel, Basic (98899) [facility] Work Phone: Start: 01-21-2018 Provider Instructions for Treatment [facility] Work Phone: Start: 11-24-2017 End: 11-24-2017 Appointment Appointment [facility] Work Phone: Start: 11-09-2017 Provider Instructions for Treatment Hip Bursa [facility] Work Phone: Start: 10-15-2017 Provider Instructions for Treatment Hip Bursa-L [facility] Work Phone: Start: 09-18-2017 Provider Instructions for Treatment [facility] Work Phone: Start: 06-05-2017 End: 06-05-2017 Follow Up Appt 6 months Follow Up Appt 6 months [facility] Work Phone: Start: 06-05-2017 End: 06-05-2017 MMM MMM [facility] Work Phone: Start: 05-07-2017 Provider Instructions for Treatment [facility] Work Phone: Start: 05-07-2017 Urnls dip stick/tablet reagent auto microscopy URINALYSIS, W/ MICRO (04707) [facility] Work Phone: Start: 05-07-2017 Urine albumin quantitative MICROALBUMIN: CREATININE RATIO (11509) AND (83537) [facility] Work Phone: Start: 12-25-2016 [...] Phone: Start: 07-02-2016 Lipid panel Lipid Panel (06180) [facility] Work Phone: Start: 06-25-2016 Provider Instructions for Treatment [facility] Work Phone: Start: 05-12-2016 End: 05-11-2015 *Hepatic Function Panel *Hepatic Function Panel [facility] Work Phone: Start: 05-12-2016 End: 05-11-2015 Lipid panel [AGGREGATE] *Lipid Profile CC PCP [facility] Work Phone: Start: 05-07-2016 End: 05-07-2016 Follow Up Appt 6 months Follow Up Appt 6 months [facility] Work Phone: Start: 05-07-2016 End: 05-07-2016 MMM MMM [facility] Work Phone: Start: 01-04-2016 Patient Education Instructions for the Patient Before and After Surgery *: instructions [facility] Work Phone: Start: 01-04-2016 Provider Instructions for Treatment [facility] Work Phone: Start: 11-29-2015 Provider Instructions for Treatment [facility] Work Phone: Start: 11-05-2015 End: 11-05-2015 Carotid duplex Carotid duplex [facility] Work Phone: Start: 11-05-2015 End: [...] feces 1-3 FECAL OCCULT- Tubes sent home (44410) [facility] Work Phone: Start: 07-26-2015 Patient Education Anxiety: emotional health [facility] Work Phone: Start: 07-26-2015 Provider Instructions for Treatment [facility] Work Phone: Start: 07-26-2015 25 hydroxy includes fractions if performed CALCIFIDIOL (44894) VIT D 25 [facility] Work Phone: Start: 07-26-2015 Urnls dip stick/tablet reagent auto microscopy URINALYSIS, W/ MICRO (58694) [facility] Work Phone: Start: 07-26-2015 Urine albumin quantitative MICROALBUMIN: CREATININE RATIO (56017) AND (12652) [facility] Work Phone: Start: 07-26-2015 Comprehensive metabolic panel METABOLIC PANEL, COMPREHENSIVE (52247) [facility] Work Phone: Start: 07-26-2015 Blood count complete auto&auto difrntl wbc CBC W/AUTO DIFF WBC (97478) [facility] Work Phone: Start: 07-26-2015 Thyrotropin Qn TSH (95104) [facility] Work Phone: Start: 07-26-2015 Lipid panel LIPID PANEL (21903) [facility] Work Phone: Start: 05-09-2015 [...] id isolate ea urine URINE IBRAHIMA CULTURE-IDENTIFICATN (40952) [facility] Work Phone: Start: 04-19-2015 Procedure Education Eprescribed prescriptions (G4544) [facility] Work Phone: Start: 04-19-2015 Provider Instructions for Treatment [facility] Work Phone: Start: 04-19-2015 Cobalamin (Vitamin B12) mass conc VITAMIN B-12 (CYANOCOBALAMIN) (26659) [facility] Work Phone: Start: 04-19-2015 Urnls dip stick/tablet rgnt auto w/o microscopy URINALYSIS W/O MICRO (56393) [facility] Work Phone: Start: 04-19-2015 Thyrotropin Qn TSH (60275) [facility] Work Phone: Start: 04-19-2015 Urine albumin quantitative MICROALBUMIN: CREATININE RATIO (96315) AND (45418) [facility] Work Phone: Start: 04-19-2015 Comprehensive metabolic panel METABOLIC PANEL, COMPREHENSIVE (89928) [facility] Work Phone: Start: 04-19-2015 Blood count complete auto&auto difrntl wbc CBC W/AUTO DIFF WBC (67786) [facility] Work Phone: Start: 04-19-2015 Lipid panel LIPID PANEL (17738) [facility] Work Phone: Start: 04-19-2015 25 hydroxy includes fractions if performed CALCIFIDIOL (24122) VIT D 25 [facility] Work Phone: Start: 01-11-2015 Provider Instructions for Treatment [facility] Work Phone: Start: 01-11-2015 25 hydroxy includes fractions if performed Vitamin D Hydroxy (46321) [facility] Work Phone: Start: 01-11-2015 Lipid panel LIPID PANEL (64407) [facility] Work Phone: Start: 01-11-2015 Thyrotropin Qn TSH (41764) [facility] Work Phone: Start: 01-11-2015 Urnls dip stick/tablet reagent auto microscopy URINALYSIS, W/ MICRO (30230) [facility] Work Phone: Start: 01-11-2015 Urine albumin quantitative MICROALBUMIN: CREATININE RATIO (69469) AND (92204) [facility] Work Phone: Start: 01-11-2015 Comprehensive metabolic panel METABOLIC PANEL, COMPREHENSIVE (55546) [facility] Work Phone: Start: 01-11-2015 Blood count complete auto&auto difrntl wbc CBC W/AUTO DIFF WBC (25887) [facility] Work Phone: Start: 10-31-2014 Provider Instructions for Treatment *Calcium Education (KF) [facility] Work Phone: Start: 10-12-2014 Provider Instructions for Treatment [facility] Work Phone: Start: 10-10-2014 End: 10-10-2014 Electrocardiogram, complete EKG (In office) [facility] Work Phone: Start: 10-10-2014 End: 10-10-2014 Follow Up Appt 6 months Follow Up Appt 6 months [facility] Work Phone: Start: 10-10-2014 End: 10-23-2016 Follow Up Appt Other Follow Up Appt Other [facility] Work Phone: Start: 10-10-2014 End: 10-10-2014 PFM PFM [facility] Work Phone: Start: 10-09-2014 25 hydroxy includes fractions if performed Vitamin D Hydroxy (66417) [facility] Work Phone: Start: 08-31-2014 [...] 6 months Follow Up Appt 6 months [facility] Work Phone: Start: 04-10-2014 End: 04-10-2014 Follow Up BP Check Follow Up BP Check [facility] Work Phone: Start: 04-10-2014 End: 04-10-2014 MMM MMM [facility] Work Phone: Start: 04-06-2014 Procedure Education Eprescribed prescriptions (G8553) [facility] Work Phone: Start: 04-06-2014 Provider Instructions for Treatment [facility] Work Phone: Start: 04-06-2014 Prothrombin time (PT) Coag time (PPP) PT (Prothrobim Time) (51451) [facility] Work Phone: Comment on above: inr Start: 12-30-2013 Provider Instructions for Treatment [facility] Work Phone: Start: 12-13-2013 End: 05-10-2015 *Hepatic Function Panel *Hepatic Function Panel [facility] Work Phone: Start: 12-13-2013 [...] Phone: Start: 08-08-2013 End: 08-08-2013 MMM MMM [facility] Work Phone: Start: 08-08-2013 End: 08-08-2013 PFM PFM [facility] Work Phone: Start: 08-01-2013 Provider Instructions for Treatment [facility] Work Phone: Start: 07-04-2013 Provider Instructions for Treatment [facility] Work Phone: Start: 06-27-2013 Provider Instructions for Treatment [facility] Work Phone: Start: 06-20-2013 Blood count complete auto&auto difrntl wbc CBC, PLATELETS & AUT DIFF (06916) [facility] Work Phone: Start: 06-20-2013 CRP mass conc C-Reactive Protein (17282) [facility] Work Phone: Start: 06-20-2013 Sedimentation rate rbc non-automated Sed Rate Erythrocyte (93037) [facility] Work Phone: Start: 06-20-2013 Creatinine mass conc CREATININE BLOOD (77538) [facility] Work Phone: Start: 06-08-2013 Patient Education Flu (Influenza) *: flu shot [facility] Work Phone: Start: 05-20-2013 Provider Instructions for Treatment Reviewed Diagnostic Tests [facility] Work Phone: Start: 05-04-2013 End: 07-07-2013 *BMP *BMP [facility] Work Phone: Start: 04-27-2013 End: 04-27-2013 Pulmonary Fuction Test - complete Pulmonary Fuction Test - complete [facility] Work Phone: Start: 04-22-2013 Provider Instructions for Treatment Reviewed Diagnostic Tests [facility] Work Phone: Start: 04-19-2013 End: 04-20-2013 *BMP *BMP [facility] Work Phone: Start: 04-19-2013 End: 04-20-2013 aPTT *PTT-Partial Thromboplastin Time [facility] Work Phone: Start: 04-19-2013 End: 04-20-2013 CBC W Auto Differential panel - Blood *CBC without Diff [facility] Work Phone: Start: 04-19-2013 End: 04-20-2013 Chest x-ray X-Ray, Chest, PA & Lateral [facility] Work Phone: Start: 04-19-2013 End: 04-20-2013 Coagulation factor induced.INR assay in platelet poor plasma *PT/INR [facility] Work Phone: Start: 04-19-2013 End: 04-19-2013 Electrocardiogram, complete EKG (In office) [facility] Work Phone: Start: 04-19-2013 End: 04-19-2013 Follow Up Appt Other Follow Up Appt Other [facility] Work Phone: Start: 04-18-2013 End: 04-18-2013 Left & Right Heart Cath W/Grafts Left & Right Heart Cath W/Grafts [facility] Work Phone: Start: 04-15-2013 Patient Education Water in diet, brief version [facility] Work Phone: Start: 04-15-2013 Provider Instructions for Treatment [facility] Work Phone: Start: 03-15-2013 End: 03-09-2013 Echocardiography Echocardiogram (complete) [facility] Work Phone: Start: 02-28-2013 Provider Instructions for Treatment [facility] Work Phone: Start: 02-10-2013 End: 02-10-2013 Arterial exam Arterial exam [facility] Work Phone: Start: 02-10-2013 End: 02-10-2013 Electrocardiogram, complete EKG (In office) [facility] Work Phone: Start: 02-10-2013 End: 02-10-2013 Flecainide [Mass/volume] in Serum or Plasma *FLEC Flecainide (Tambocor) [id number] [facility] Work Phone: Start: 02-10-2013 End: 02-10-2013 Follow Up Appt 6 months Follow Up Appt 6 months [facility] Work Phone: Start: 02-10-2013 End: 08-08-2013 Lipid panel [AGGREGATE] *Lipid Profile CC PCP [facility] Work Phone: Start: 02-10-2013 End: [...] urine URINE IBRAHIMA CULTURE (TY COL COUNT) (51733) [facility] Work Phone: Start: 09-16-2012 Provider Instructions for Treatment Follow up in 1 month [facility] Work Phone: Start: 07-08-2012 End: 04-18-2013 *Hepatic Function Panel *Hepatic Function Panel [facility] Work Phone: Start: 07-08-2012 End: 07-09-2012 Electrocardiogram, complete EKG (In office) [facility] Work Phone: Start: 07-08-2012 End: 07-09-2012 Follow Up Appt 6 months Follow Up Appt 6 months [facility] Work Phone: Start: 07-08-2012 End: 04-18-2013 Lipid panel [AGGREGATE] *Lipid Profile [facility] Work Phone: Start: 04-12-2012 End: 04-12-2012 Follow Up Appt 3 months Follow Up Appt 3 months [facility] Work Phone: Start: 03-05-2012 Provider Instructions for [...] End: 01-06-2012 Electrocardiogram, complete EKG (In office) [facility] Work Phone: Start: 01-06-2012 End: 01-06-2012 Follow Up Appt 3 months Follow Up Appt 3 months [facility] Work Phone: Start: 01-06-2012 End: 01-06-2012 Follow Up Appt Other Follow Up Appt Other [facility] Work Phone: Start: 01-06-2012 End: 04-18-2013 Lipid panel [AGGREGATE] *Lipid Profile [facility] Work Phone: Start: 12-31-2011 Provider Instructions for Treatment [facility] Work Phone: Start: 12-24-2011 Fibrin dgradj products d-dimer quantitative D-Dimer (06688) [facility] Work Phone: Start: 12-24-2011 Blood count complete automated CBC (AUTO) (54364) [facility] Work Phone: Start: 12-03-2011 Culture bacterial quanttative colony count urine URINE IBRAHIMA CULTURE-TY COL COUNT (95868) [facility] Work Phone: Start: 11-26-2011 Provider Instructions for Treatment [facility] Work Phone: Start: 11-06-2011 Provider Instructions for Treatment Reviewed Diagnostic Tests [facility] Work Phone: Start: 11-04-2011 Renal function panel Renal function Panel (49850) [facility] Work Phone: Start: 10-22-2011 CRP mass conc C-Reactive Protein (22677) [facility] Work Phone: Start: 10-21-2011 Renal function panel Renal function Panel (78774) [facility] Work Phone: Start: 10-21-2011 Provider Instructions for Treatment Follow up in 2 weeks [facility] Work Phone: Start: 10-21-2011 Fibrin dgradj products d-dimer quantitative D-Dimer (86032) [facility] Work Phone: Start: 10-21-2011 Troponin I.cardiac mass conc Troponin I (85554) [facility] Work Phone: Start: 10-21-2011 Creatine kinase mb fraction only CPK MB FRACTION (17400) [facility] Work Phone: Start: 10-21-2011 Creatine kinase total CREATINE KINASE TOTAL (45066) [facility] Work Phone: Start: 10-21-2011 CRP mass conc C-Reactive Protein (18878) [facility] Work Phone: Start: 06-17-2010 Provider Instructions for Treatment [facility] Work Phone: Start: 12-13-2009 Provider Instructions for Treatment [facility] Work Phone: Start: 01-17-2009 Provider Instructions for Treatment [facility] Work Phone: Start: 01-12-2009 Provider Instructions for Treatment *ERGOCALCIFEROL DOSAGE PER SHEWMON [facility] Work Phone: Start: 01-12-2009 Nuclear Ab IF titer (S) CORTES (ANTINUCLEAR ANTIBODY) (83922) [facility] Work Phone: Start: 01-12-2009 Rheumatoid factor quantitative RHEUMATOID FACTOR-QUANT (17418) [facility] Work Phone: Start: 01-12-2009 25 hydroxy includes fractions if performed Vitamin D Hydroxy (11869) [facility] Work Phone: Comment on above: do in 3-4 months Start: 01-02-2009 Provider Instructions for Treatment [facility] Work Phone: Start: 01-02-2009 25 hydroxy includes fractions if performed Vitamin D Hydroxy (49239) [facility] Work Phone: Start: 01-02-2009 1 25 dihydroxy includes fractions if performed VITAMIN D, 1, 25-DIHYDROXY (41332) [facility] Work Phone: Start: 01-02-2009 Thyrotropin Qn TSH (93418) [facility] Work Phone: Start: 01-02-2009 Protein electrophoretic fractj&quantj serum [facility] Work Phone: Start: 01-02-2009 Sedimentation rate rbc non-automated SED RATE ERYTHROCYTE (26462) [facility] Work Phone: Start: 01-02-2009 Phosphate mass conc PHOSPHORUS (00284) [facility] Work Phone: Start: 01-02-2009 Assay of parathormone PARATHORMONE (31502) [facility] Work Phone: Start: 01-02-2009 Hepatic function panel HEPATIC FUNCTION PANEL (85376) [facility] Work Phone: Start: 01-02-2009 Blood count complete automated CBC (AUTO) (83147) [facility] Work Phone: Start: 01-02-2009 Calcium mass conc CALCIUM SERUM (34738) [facility] Work Phone: Start: 01-02-2009 CRP mass conc C-REACTIVE PROTEIN (93429) [facility] Work Phone: Start: 01-02-2009 ALP enzyme act/vol ALKALINE PHOSPHATASE (17385) [facility] Work Phone: Start: 10-04-2008 Provider Instructions for Treatment [facility] Work Phone: Start: 10-04-2008 Lipid panel LIPID PANEL (26140) [facility] Work Phone: Start: 09-21-2008 Patient Education Water in diet, brief version [facility] Work Phone: Start: 09-21-2008 Provider Instructions for Treatment [facility] Work Phone: Start: 08-24-2008 Provider Instructions for Treatment [facility] Work Phone: Start: 06-28-2008 Provider Instructions for Treatment [facility] Work Phone: Patient Education [facility] Work Phone: [facility] [...] Immunizations Immunization Date Immunization Notes Care Provider [facility] 06-13-2009 influenza, seasonal, injectable Mirella Searson [facility] Work Phone: Comment on above: Lot #[id number]-left deltoidgiven by:[facility] 06-28-2008 influenza, seasonal, injectable Mirella [facility] Work Phone: Comment on above: done km 0.5cc given im ;lt arm lot [id number] exp 02-20 Payers Date Payer Category Payer Self-pay [id number] 2024 Unknown [id number] 2024 Unknown [id number] 2016 Unknown [id number] 2004 Medicare [id number] Medicare MEDICARE PART A B [id number] Private Health Insurance [id number] Unknown Unknown [id number] 2.840.1.455404.3.579.2.462 Unknown [id number] 2.840.1.588003.3.579.2.462 Unknown [id number] 2.16.840.1.920151.3.579.2.462 Unknown [id number] 2.16.840.1.840198.3.579.2.462 Unknown [id number] 2.16.840.1.272276.3.579.2.462 Unknown [id number] 2.16.840.1.641753.3.579.2.462 Unknown [id number] 2.16840.1.950385.3.579.2.462 Unknown [id number] 2..840.1.129252.3.579.2.462 Unknown [id number] 2.840.1.474086.3.579.2.462 Unknown [id number] 2.840.1.280753.3.579.2.462 Unknown [id number] 2.840.1.062694.3.579.2.462 Unknown [id number] 2.840.1.458238.3.579.2.462 Unknown [id number] 2.840.1.219959.3.579.2.462 Unknown [id number] 2.840.1.320218.3.579.2.462 Unknown [id number] 2.840.1.186036.3.579.2.462 Unknown [id number] 2.840.1.678541.3.579.2.462 Unknown [id number] .840.1.883202.3.579.2.462 Unknown [id number] 2.840.1.803992.3.579.2.462 Unknown [id number] 2.840.1.302192.3.579.2.462 Unknown [id number] 2.840.1.494094.3.579.2.462 Unknown [id number] .840.1.922943.3.579.2.462 Unknown [id number] .840.1.037602.3.579.2.462 Unknown [id number] 2.840.1.448757.3.579.2.462 Unknown [id number] 2.840.1.719389.3.579.2.462 Unknown [id number] 2.840.1.677770.3.579.2.462 Unknown [id number] 2.16.840.1.013906.3.579.2.462 Unknown [id number] 2.16.840.1.417280.3.579.2.462 Unknown [id number] 2.16.840.1.452578.3.579.2.462 Unknown [id number] 2.16.840.1.841460.3.579.2.462 Unknown [id number] 2.16.840.1.740052.3.579.2.462 Unknown [id number] 2.16.840.1.517520.3.579.2.462 Unknown [id number] 2.16.840.1.429017.3.579.2.462 Unknown [id number] 2.16.840.1.332407.3.579.2.462 Unknown [id number] 2.16.840.1.448804.3.579.2.462 Unknown [id number] 2.16.840.1.577407.3.579.2.462 Unknown [id number] 2.16.840.1.565660.3.579.2.462 Unknown [id number] 2.16.840.1.858613.3.579.2.462 Unknown [id number] 2.16.840.1.888923.3.579.2.462 Social History Date Type Detail Facility Caffeine Use Never smoker [facility] Work Phone: Comment on above: 2 per week 3-4 miles QD walking , heterosexua l, celibate Retired Tobacco use: Never smoker. [facility] Work Phone: Start: 09-30-2021 End: 07-09-2023 Tobacco smoking status COIS Unknown if ever smoked [facility] Start: 06-12-2021 None [facility] Start: 06-12-2021 Homeless [facility] Start: 06-12-2021 Non-smoker [facility] Start: 1940 Sex Assigned At Female W [facility] Start: 02-07-2024 End: 06-28-2025 Tobacco smoking status NHIS Never smoked tobacco (finding) [facility] Start: 12-14-2024 End: 01-04-2025 Sex Female (finding) [facility] Sex Female [facility] Medical Equipment Procedure Code Equipment Code [...] Assessment Result Facility 06-28-2025 Cognitive function Voice/Name [facility] Work Phone: Discharge summary 06-28-2025 Note Date & Type Note Facility 06-28-2025 Discharge summary [facility] Discharge summary 06-28-2025 Note Date & Type Note Facility 06-28-2025 Discharge summary Note Date/Time June 28, 2025 10:17pm [facility] Medical Records Department [address] [place] [address] Emergency Department Summary 06/28/25 MR#: [id number] Acct: [id number] Name: AGUSTIN GARCIA Rep #:[id number] : 1940 85 From: Aric Oneil MD PCP: Dr. Yesika Faust MD Status:R EG ER Location: ED HPI History of Present Illness Chief Complaint: Confusion Narrative Narrative: 85-year-old female past [facility]. Patient denies any fevers or chills, no nausea or vomiting, denies that she is in pain anywhere. She had notbeen combative with squad or staff here as of yet. On review of her paperwork, she is DO NOT RESUSCITATE Comfort Care arrest. [facility] Medical History Dyspnea Intermittent claudication Shortness of [...] mg intravenously and discharged back to the [facility] ([place], [place]) facility. I do not feel that she [...] % (Auto) 53.8 Lymph % (Auto) 30.5 [place] % (Auto) 10.3 H Eos % (Auto) [...] Clarity Clear Urine pH 6.5 Ur Specific [place] 1.015 Urine Protein 15 H Urine Glucose [...] - As soon as possible Print Language: Yoruba Disposition Disposition: Home, Self Care What to do if you have Problems For any increased pain, shortness of breath, bleeding, nausea or vomiting, chestpain, or any unexpected problems, contact your Primary Care Provider. Call [facility] ([phone]) or report to the closest Emergency Room. Call 911 if necessary. 06/28/252216 <Electronically signed by Aric Oneil MD> Cosigner Signature (if applicable): CC: Dr. Yesika Faust MD ~ Signed [facility] Work Phone: Evaluation note Note Date & Type Note Facility Evaluation note No assessment information availa ble [facility] Work Phone: Evaluation note Note Date & Type Note Facility Evaluation note Diagnosis Onset Date Pes anserinus bursitis of left knee noneactive Osteoarthritis of left knee noneactive [facility] Work Phone: Evaluation note Note Date & Type Note Facility Evaluation note Diagnosis Onset Date Pes anserinus bursitis of left knee noneactive Osteoarthritis of left knee noneactive Pes anserinus bursitis of left knee noneactive Osteoarthritis of left knee noneactive [facility] Work Phone: Evaluation note Note Date & Type Note Facility Evaluation note Diagnosis Onset Date Osteoarthritis of left knee noneactive Osteoarthritis of left knee noneactive Osteoarthritis of left knee noneactive Osteoarthritis of left knee noneactive [facility] Work Phone: Hospital Discharge instructions Note Date & Type Note Facility Hospital Discharge instructions Additional Instructions Your laboratory work was grossly unremarkable today. Urinalysis did not show signs of infection. Continue your Ativan as previously directed. [facility] Work Phone: Reason for referral (narrative) Note Date & Type Note Facility Reason for referral (narrative) No reason for referral information available [facility] Work Phone: Family History No Family [...] for Treatment How to access health informa [employer] Indication:Coronary artery disease Start:13-Jul-2014 Instruction Type:Patient Education How to access health informa tion online - Detail Indication:Coronary artery disease Start:13-Jul-2014 Instruction Type:Patient Education Patient Instructions Indication:Coronary artery disease Start:13-Jul-2014 Instruction Type:Provider Instructions for Treatment Patient Instructions Indication:SYMPTOMS INVOLVING URINARY SYSTEM; DYSURIA Start:17-Apr-2014 Instruction Type:Provider Instructions for Treatment How to access health informa [employer] Indication:Coronary artery disease Start:06-Apr-2014 Instruction Type:Patient Education [...] Details How to access health informa tion Bugsnag Indication:Nonsmoker Start:15-Mar-2019 Instruction Type:Patient Education How to [...] Instructions for Treatment How to access health Ophtalmopharmaa OraMetrixon online Indication:Hyperlipidemia Start:19-Apr-2015 Instruction Type:Patient Education How [...] Instructions for Treatment How to access health [employer] online Indication:Hyperlipidemia Start:19-Apr-2015 Instruction Type:Patient Education How to access health informa tion online - Detail Indication:Hyperlipidemia Start:19-Apr-2015 Instruction Type:Patient Education Patient Instructions Indication:Hyperlipidemia Start:19-Apr-2015 Instruction Type:Provider Instructions for Treatment cardiovascular counseling Indication:Coronary artery disease Start:12-Oct-2014 Instruction Type:Provider Instructions for Treatment Patient Instructions Indication:Headache Start:12-Oct-2014 Instruction Type:Provider Instructions for Treatment Patient Instructions Indication:Headache Start:31-Aug-2014 Instruction Type:Provider Instructions for Treatment How to access health informa [employer] online Indication:Coronary artery disease Start:13-Jul-2014 Instruction Type:Patient Education How to access health informa tion online - Detail Indication:Coronary artery disease Start:13-Jul-2014 Instruction Type:Patient Education Patient Instructions Indication:Coronary artery disease Start:13-Jul-2014 Instruction Type:Provider Instructions for Treatment Patient Instructions Indication:SYMPTOMS INVOLVING URINARY SYSTEM; DYSURIA Start:17-Apr-2014 Instruction Type:Provider Instructions for Treatment How to access health [facility]alm[facility] [employer] online Indication:Coronary artery disease Start:06-Apr-2014 Instruction Type:Patient [...] Yes May 27, 2019 6:37pm Power of Registered Mail Clerk Yes May 6:37pm Advance Directive Response Recorded Date/ Time Advance Directives Yes May 2:39pm Living Will Yes June 04, 2022 2:39pm Power of Registered Mail Clerk Yes May 2:39pm Advance Directive Response Recorded Date/ Time Advance Directives Yes July 9:15am Living Will Yes August 01 9:15am Power of Registered Mail Clerk Yes August 01, 2022 9:15am Advance Directive Response Recorded Date/ Time Advance Directives Yes July 10:15am Living Will Yes August 01, 022 10:15am Power of Registered Mail Clerk Yes August 01, 2022 10:15am Advance Directive Response Recorded Date/ Time Advance Directives Yes July 09, 2023 8:23am Living Will Yes July 09 8:23am Power of Registered Mail Clerk Yes July 09, 2023 8:23am Advance Directive Response Recorded Date/ Time Advance Directives Yes July 09, 2023 9:23am Living Will Yes July 09 9:23am Power of Registered Mail Clerk Yes July 09, 2023 9:23am Advance Directive [...] 2025 11: 08am Chief Complaint Admit Date [facility] March 14, 2025 5:0 0am Monthly Exam March 14, 2025 10:00 pm New Concern March 20, 2025 4:08p m LABWORK April 14, 2025 5:0 0am MONTHLY EXAM April 20, 2025 11: 08am [facility] May 16 5:00am [facility] May 22 5:00am [facility] WORK June 19, 2025 4:42am Confused October 15th, 2025 7 :22pm Additional Source Comments INFORMATION SOURCE (unrecogn ized section and content) DATE CREATED AUTHOR 10/03/2019 [facility] ([place]) DATE CREATED AUTHOR AUTHOR'S ORGANIZ ATION 07/27/2025 [facility] Goals (unrecognized section and content) Goals [...] MD Primary Care Provider Active Zeina Balbuena DIP GUIDER STOVES, DIP GUIDER STOVES-C Attending Provider Active Team Status: Inactive Member [...] MD Primary Care Provider Active Carmen Shaikh DIP GUIDER STOVES-C Attending Provider Active Team Status: Active Member [...] 2024 End: December 16, 2024 Zeina Balbuena DIP GUIDER STOVES, DIP GUIDER STOVES-C Attending Provider Active Start: December 16, 2024 [...] End: December 16, 2024 Zeina Balbuena NP DIP GUIDER STOVES-C Attending Provider Active Start: December 16, 2024 [...] 2025 End: March 06, 2025 Zeina Balbuena DIP GUIDER STOVES, DIP GUIDER STOVES-C Attending Provider Active Start: March 06, 2025 [...] End: March 06, 2025 Zeina Balbuena NP DIP GUIDER STOVES-C Attending Provider Active Start: March 06, 2025 End: March 06, 2025 Team Status: Inactive Member Role/Relationship Status Dates Dr. Yesika Faust MD Primary Care Provider Active Start: March 20, 2025 End: March 20, 2025 Zeina Balbuena NP DIP GUIDER STOVES-C Attending Provider Active Start: March 20, 2025 [...] End: March 20, 2025 Zeina Balbuena NP DIP GUIDER [employer]OVES-C Attending Provider Active Start: March 20, 2025 End: March 20, 2025 Team Status: Active Member Role/Relationship Status Dates Dr. Yesika Faust MD Primary Care Provider Active Start: April 14, 2025 Yesika VICENTE MD Attending Provider Active Start: April 14, 2025 Team Status: Inactive Member Role/Relationship Status Dates Dr. Yeiska Faust MD Primary Care Provider Active Start: [...] 2025 End: March 06, 2025 Zeina Balbuena DIP GUIDER STOVES, DIP GUIDER STOVES-C Attending Provider Active Start: March 06, 2025 [...] 2025 End: March 20, 2025 Zeina Balbuena DIP GUIDER STOVES, DIP GUIDER STOVES-C Attending Provider Active Start: March 20, 2025 [...] 2025 End: March 20, 2025 Zeina Balbuena DIP GUIDER STOVES, DIP GUIDER STOVES-C Attending physician Active Start: March 20, 2025 [...] End: April 20, 2025 TRUDY Blanco Attending physician Active S tart: April 20, [...] BE BASED ON THE PRIMARY CLINICAL RECORDS. [facility] [employer] [facility]. provides no warranty or guarantee of the accuracy or completeness of information in this document.
--- NOTE | 2025-08-05 12:45 | CT_ITS ---
PROCEDURE: BRAIN/HEAD WITHOUT CONTRAST 08/05/2025 REASON FOR EXAM: FALL yesterday and today. History of dementia. Unknown if she hit her head. Unknown LOC. No thinners. TECHNIQUE: Procedure Code: CTBR Modality: CT Procedure: BRAIN/HEAD WITHOUT CONTRAST Coronal and Sagittal reconstruction series were provided. One or more dose reduction techniques were used (e.g., Automated exposure control, adjustment of the mA and/or kV according to patient size, use of iterative reconstruction technique. RADIATION DOSE SUMMARY: CTDlvol: 44.99 mGy DLP: 762.36 mGycm COMPARISON: 02/07/2024 FINDINGS: BRAIN: No acute intraparenchymal hemorrhage. No mass lesion. No CT evidence for acute territorial infarct. No midline shift or extra-axial collection. Diffuse cerebral volume loss with corresponding ventricular prominence. Patchy periventricular white matter low attenuation, likely microvascular ischemic changes. VENTRICLES: No hydrocephalus. ORBITS: Intraocular lens implant on the right. The orbits are otherwise unremarkable. SINUSES AND MASTOIDS: Moderate fluid in the right sphenoid sinus, increased since the prior study. 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 The mastoid air cells are clear. SOFT TISSUES: No acute abnormality seen. BONES: No acute osseous abnormality seen. Benign hyperostosis frontalis is present. OTHER: Calcified carotid siphons and vertebral arteries. CT/Brain/Head without Contrast IMPRESSION: 1. No acute intracranial abnormality. 2. Age-related senescent changes. 3. Moderate right sphenoid sinus fluid, increased since the prior, query acute sinusitis. Reading Location: [id number]
--- NOTE | 2025-08-05 12:45 | EKG12_ITS ---
Test Reason : GENERAL Blood Pressure : */* mmHG Vent. Rate : 76 BPM Atrial Rate : 76 BPM P-R Int : 158 ms QRS Dur : 72 ms QT Int : 438 ms P-R-T Axes : 67 17 57 degrees QTcB Int : 492 ms Normal sinus rhythm Prolonged QT Abnormal ECG Confirmed by IMANI GE, QUIRINO ([id number]), pictures editor TABITHA DUDLEY ([id number]) on 08/07/2025 1:38:47 PM Referred By: RONI Confirmed By: QUIRINO DIALLO MD
--- NOTE | 2025-08-05 12:45 | CT_ITS ---
PROCEDURE: SPINE CERVICAL WITHOUT CONTRAS 08/05/2025 REASON FOR EXAM: FALL yesterday and today. TECHNIQUE: Procedure Code: CTS Modality: CT Procedure: SPINE CERVICAL WITHOUT CONTRAS Coronal and Sagittal reconstruction series were provided. One or more dose reduction techniques were used (e.g., Automated exposure control, adjustment of the mA and/or kV according to patient size, use of iterative reconstruction technique. RADIATION DOSE SUMMARY: CTDlvol: 12.58, 12.58 mGy DLP: 253.67, 253.67 mGycm COMPARISON: None. FINDINGS: BONES: No acute fracture or focal osseous lesion. Anterior fusion hardware at C4-C5 with no evidence of hardware failure or loosening. Grade 1 anterolisthesis of C7 on T1 and T1 on T2. DISCS / DEGENERATIVE CHANGES: Bony fusion of the C4 to C7 vertebral bodies. Moderate C3-C4 and C7-T1 disc space narrowing. Multilevel facet arthropathy and neuroforaminal narrowing. Moderate spinal canal stenosis at the level of C3-C4, with an AP canal diameter of 5.8 mm. SOFT TISSUES: No prevertebral soft tissue swelling. No apical pneumothorax. Left upper lobe subpleural 2.[address]/Spine Cervical without Contras IMPRESSION: 1. No acute cervical spine fracture. 2. Postsurgical and degenerative changes as above. Reading Location: [id number]
--- NOTE | 2025-08-05 13:03 | EX.ED.DYSGE1 ---
HPI History of Present Illness Chief Complaint: Lower Extremity Injury Narrative Narrative: Chief complaint and HPI: 85-year-old female with past medical history of dementia, depression presents for evaluation of left hip pain after mechanical fall. Patient is a poor historian given her dementia. History taken by EMS. Patient had a fall yesterday that she was not evaluated for. Had another fall today. Unknown if it was witnessed. Complains of left hip pain and inability to ambulate. Unknown if she hit her head. Unknown LOC. Not on blood thinners. Review of systems: See HPI Medications: As listed on the chart Allergies: As listed on the chart PFSH: Per chart Vital signs: As listed on the chart. Reviewed. Physical exam: Gen: A&O to self only, NAD Head: Normocephalic, atraumatic Eyes: No sclera icterus, conjunctiva clear, PERRL, EOMI ENT: TMs clear BL, moist mucous membranes, face atraumatic Neck: Trachea midline, nontender, full range of motion CV: RRR, no murmurs, no chest wall TTP Resp: Lungs CTA BL, no w/r/c GI: Abd soft, non-distended, non-tender, no r/r/g Musc: Full range of motion of all extremities except to left lower extremity secondary to pain in hip, left lower extremity is shortened compared to the right, DP/PT pulses +2 bilaterally, no spinal TTP, no lilia step-offs, missing toes Skin: Warm, dry, intact Psych: Cooperative, appropriate mood and affect [facility] Medical History Dyspnea Intermittent claudication Shortness of breath Family history of coronary artery disease Family history of hyperlipidemia Family history of hypertension Home Medications Medication Instructions Recorded Last Taken Type aspirin 81 mg tablet,delayed 81 mg PO DAILY@0800 07/25/14 05/25/15 History release diclofenac sodium 1 % topical gel 4 g topical BID 09/30/21 Unknown History acetaminophen 500 mg tablet 1,000 mg PO TID 02/07/24 Unknown History donepezil 10 mg tablet 10 mg PO QHS 02/07/24 Unknown History duloxetine 60 mg capsule,delayed 60 mg PO DAILY 02/07/24 Unknown History release sennosides 8.6 mg-docusate sodium 2 tab-cap PO QHS 02/07/24 Unknown History 50 mg tablet (Senexon-S) brexpiprazole 1 mg tablet (Rexulti) 2 mg PO DAILY 06/28/25 Unknown History divalproex 125 mg capsule,delayed 125 mg PO BID 06/28/25 Unknown History release sprinkle mirtazapine 7.5 mg tablet 7.5 mg PO QHS 06/28/25 Unknown History oxycodone 5 mg tablet 2.5 mg (1/2 x 5 mg) PO Q6H PRN 07/31/25 Unknown Rx pain 30 days #30 tabs pregabalin 25 mg capsule 25 mg PO QDAY neuropathic pain 30 07/31/25 Unknown Rx days #30 caps levofloxacin 750 mg tablet 750 mg PO DAILY 7 days #7 tabs 08/05/25 Unknown Rx lorazepam 0.5 mg tablet 0.5 mg PO TID dementia with 08/05/25 Unknown History behaviors melatonin 5 mg capsule 5 mg PO QHS 08/05/25 Unknown History Allergy/AdvReac Type Severity Reaction Status Date / Time sulfamethoxazole Allergy Unknown Other Verified 08/05/25 11:35 acetaminophen (From Vicodin) Allergy Other Verified 08/05/25 11:35 hydrocodone (From Vicodin) Allergy Other Verified 08/05/25 11:35 Family History Other Family history of coronary artery disease Family history of hyperlipidemia Family history of hypertension Social History Smoking Status: Never smoker EXAM Physical Exam Const Vital Signs: 08/05/25 11:30 08/05/25 13:29 08/05/25 15:00 Temperature 97.4 F L Temperature Source Oral Pulse Rate 73 94 60 Respiratory Rate 16 18 17 Blood Pressure 124/63 H 143/86 H 143/64 H Blood Pressure Mean 83 105 90 Pulse Ox 96 100 96 Oxygen Delivery Method Room Air Room Air Room Air 08/05/25 17:00 Temperature Temperature Source Pulse Rate 80 Respiratory Rate 20 H Blood Pressure 135/68 H Blood Pressure Mean 90 Pulse Ox 97 Oxygen Delivery Method Room Air MDM MDM MDM Narrative Medical decision making narrative: 85-year-old female with past medical history of dementia, depression presents for evaluation of left hip pain after mechanical fall. Patient is a poor historian given her dementia. History taken by EMS. Patient had a fall yesterday that she was not evaluated for. Had another fall today. Unknown if it was witnessed. Complains of left hip pain and inability to ambulate. Unknown if she hit her head. Unknown LOC. Not on blood thinners. See physical exam findings. Concern is for left hip fracture. Given that it is unknown if she hit her head or neck. Will obtain CT head and neck to assess for fracture or intracranial bleed. Basic labs, chest x-ray, EKG ordered due to concern for possible hip fracture. UA obtained to rule out UTI as a source of falling. Morphine and Zofran ordered for symptoms. CBC unremarkable. UA positive for UTI. Urine culture sent. Previous cultures grew out protease and E. coli. Sensitive to Levaquin. First dose of Levaquin given here in the emergency department. X-ray of the knee was personally viewed interpreted by me, ED physician. No fracture or dislocation. Radiology in agreement. X-ray of the hip/pelvis I personally felt that per radiology shows right femoral lesser trochanter contour abnormality, possible artifactual due to leg rotation. However fracture cannot be excluded. No other signs of fracture. Severe left hip osteoarthritis. Given this reading and that the patient's pain is in her left hip which is shortened and externally rotated I did contact the radiologist about a hip fracture on the left. She re-looked at the imaging and did not see an obvious fracture. Therefore CT of the pelvis ordered. CT of the pelvis shows age-indeterminate compression deformity involving L3. Patient not having pain there with palpation. Severe left hip osteoarthritis with subchondral cystic change and [id number] apposition with questionable flattening of the medial aspect of the left humeral head raising the possibility of avascular necrosis. MRI with contrast is acquired for confirmation as deemed clinically necessary. At this point in time, no left hip fracture. On reevaluation patient still having left hip pain. She is still shortened on exam.Speaking with guardian, her knees. Patient is mostly wheelchair-bound and ambulates only to get out of her wheelchair to pivot to a chair or toilet. Will reach out to orthopedic surgeon. BMP has been redrawn multiple times due to hemolysis. Pending at this time. Patient was discussed with Dr. Pritchett. He reviewed the imaging. 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 However cannot rule out occult fracture. Given that patient is nonambulatory at baseline. Recommended follow-up in his office in 2 weeks. Weight on right lower extremity with transfers. Patient's guardian/niece was updated about the results and the plan. She confirmed understanding. BMP pending at this time. BMP relatively unremarkable without HERMILA. Patient is stable to discharge back to her [facility] care facility. EKG: Interpreted by me/EM physician: EKG shows normal sinus rhythm. No acute ischemic changes. Diagnostic: Interpreted by me/EM physician: Chest x-ray without pneumonia, effusion, cardiomegaly, pneumothorax. Radiology in agreement. Impression: 1. Fall 2. Left hip contusion 3. UTI Lab Data Labs: Laboratory Results - last 24 hr 08/05/25 08/05/25 08/05/25 13:06 13:58 14:50 WBC 8.8 RBC 4.34 Hgb 13.5 Hct 41.8 MCV 96.3 MCH 31.1 MCHC 32.3 RDW Std Deviation 48.1 H RDW Coeff of Jeff 13.4 Plt Count 283 MPV 10.5 Immature Gran % (Auto) 0.300 Neut % (Auto) 74.2 H Lymph % (Auto) 15.2 L Clay % (Auto) 9.0 Eos % (Auto) 0.8 Baso % (Auto) 0.5 Absolute Neuts (auto) 6.6 Absolute Lymphs (auto) 1.34 Nucleated RBC % 0 Sodium Cancelled Cancelled Potassium Cancelled Cancelled Chloride Cancelled Cancelled Carbon Dioxide Cancelled Cancelled Anion Gap Cancelled Cancelled BUN Cancelled Cancelled Creatinine Cancelled Cancelled Estim Creat Clear Calc Cancelled Cancelled Est GFR (MDRD) Non-Af Cancelled Cancelled BUN/Creatinine Ratio Cancelled Cancelled Glucose Cancelled Cancelled Calcium Cancelled Cancelled Urine Color Yellow Urine Clarity Cloudy Urine pH 7.0 Ur Specific [place] 1.010 Urine Protein 100 H Urine Glucose (UA) Normal Urine Ketones 15 H Urine Occult Blood 50 H Urine Nitrite Negative Urine Bilirubin Negative Urine Urobilinogen Normal Ur Leukocyte Esterase 500 H Urine RBC 0-5 SEEN Urine WBC >100 SEEN Ur Squamous Epith Cells 0-5 SEEN Urine Bacteria 1+ Hyaline Casts 0-5 SEEN Urine Mucus RARE 08/05/25 08/05/25 14:52 16:26 WBC RBC Hgb Hct MCV MCH MCHC RDW Std Deviation RDW Coeff of Jeff Plt Count MPV Immature Gran % (Auto) Neut % (Auto) Lymph % (Auto) Clay % (Auto) Eos % (Auto) Baso % (Auto) Absolute Neuts (auto) Absolute Lymphs (auto) Nucleated RBC % Sodium Cancelled 142 Potassium Cancelled 4.2 Chloride Cancelled 104 Carbon Dioxide Cancelled 27.4 Anion Gap Cancelled 11 BUN Cancelled 17 Creatinine Cancelled 0.73 Estim Creat Clear Calc Cancelled 43.78 L Est GFR (MDRD) Non-Af Cancelled 80 BUN/Creatinine Ratio Cancelled 22.8 H Glucose Cancelled 101 H Calcium Cancelled 9.0 Urine Color Urine Clarity Urine pH Ur Specific [place] Urine Protein Urine Glucose (UA) Urine Ketones Urine Occult Blood Urine Nitrite Urine Bilirubin Urine Urobilinogen Ur Leukocyte Esterase Urine RBC Urine WBC Ur Squamous Epith Cells Urine Bacteria Hyaline Casts Urine Mucus Radiography Diagnostic Testing: Clinical Impression(s) from Imaging Studies Brain CT 08/05/25 12:45 IMPRESSION: 1. No acute intracranial abnormality. 2. Age-related senescent changes. 3. Moderate right sphenoid sinus fluid, increased since the prior, query acute sinusitis. Reading Location: [facility] [address] 08/05/25 12:45 IMPRESSION: 1. No acute cervical spine fracture. 2. Postsurgical and degenerative changes as above. Reading Location: [facility] Chest X-Ray 08/05/25 13:35 IMPRESSION: No Acute Findings. Reading [facility] Hip/Pelvis X-Ray 08/05/25 13:35 IMPRESSION: 1. Right femoral lesser trochanter contour abnormality, possibly artifactual due to leg rotation, however a fracture can not be excluded. Correlate clinically for pain in the right hip. 2. No other signs of fracture. 3. Severe left hip osteoarthrosis. Reading Location: [facility] Knee X-Ray 08/05/25 13:35 IMPRESSION: NO EFFUSION, ACUTE FRACTURE OR DISLOCATION. Reading Location: [facility] [address] 08/05/25 14:46 IMPRESSION: Age indeterminate compression deformity involving L3. Severe left hip osteoarthrosis with subchondral cystic change and onyk-er-[id number] apposition with questionable flattening of the medial aspect of the left humeral head raising the possibility of avascular necrosis. MRI with contrast is required for confirmation as deemed clinically necessary. Reading Location: [facility] Discharge Plan Triage Chief Complaint: Lower Extremity Injury ED Provider: Wade Joseph Dx/Rx/DC Orders Clinical Impression: Contusion of hip, left, Fall, UTI (urinary tract infection) Instructions: UTIs, ED Contusion, Lower Extremity Prescriptions: New levofloxacin 750 mg tablet 750 mg PO DAILY 7 Days Qty: 7 0RF No Action diclofenac sodium 1 % gel 4 g topical BID Rx Instructions: apply to single elbow, wrist or hand; for hand includes palm/fingers/back of hand aspirin 81 MG tablet 81 mg PO DAILY@0800 Patient Comments: HEART/BLOOD PRESSURE divalproex 125 mg capsule, delayed rel sprinkle 125 mg PO BID mirtazapine 7.5 mg tablet 7.5 mg PO QHS Rexulti 1 mg tablet 2 mg PO DAILY sennosides-docusate sodium [Senexon-S] 8.6-50 mg tablet 2 tab-cap PO QHS acetaminophen 500 mg tablet 1,000 mg PO TID donepezil 10 mg tablet 10 mg PO QHS duloxetine 60 mg capsule,delayed release(DR/EC) 60 mg PO DAILY melatonin 5 mg capsule 5 mg PO QHS lorazepam 0.5 mg tablet 0.5 mg PO TID oxycodone 5 mg tablet 2.5 mg PO Q6H PRN (Reason: pain) 30 Days Qty: 30 0RF pregabalin 25 mg capsule 25 mg PO QDAY 30 Days Qty: 30 0RF Rx Instructions: Give in evening. Primary Care Provider: Yesika Faust Referrals: Yesika Faust MD [Primary Care Provider, Internal Medicine] - 3-5 Days Ambrose Pritchett MD [Med Staff - Active Staff, Orthopedics] - 1-2 Weeks Activity Restrictions/Additional Instructions: When pivoting out of her wheelchair, patient needs to put her weight on her right lower extremity and not her left. She needs to follow-up with orthopedic physician in 2 weeks. Return back to ED if symptoms change or worsen. Patient received her first dose of antibiotics here for her UTI. Follow-up with primary care physician. Print Language: Tajik Disposition Disposition: Home, Self Care
[2025-08-05 13:28] LABS: Hematocrit 41.8 % (37-47); Hemoglobin 13.5 g/dL (12.0-15.0); Immature Granulocytes Count 0.030 X10^3/uL (0.0-0.0); Mean Corp Hgb Conc 32.3 g/dL (32-36); Mean Corpuscular Volume 96.3 fL (81-99); Mean Platelet Vol. 10.5 fl (6.2-12.0); NRBC Flagged by Analyzer 0 % (0-5); Platelet Count 283 K/mm3 (150-450); RBC Distribution Width CV 13.4 % (11.6-14.6); RBC Distribution Width SD 48.1 fl (35.1-43.9); Red Blood Count 4.34 M/mm3 (4.2-5.4); White Blood Count 8.8 K/mm3 (4.4-11.0)
[2025-08-05 13:29] VITALS: BP 143/86; PULSE 94; RESP 18; O2SAT 100
--- NOTE | 2025-08-05 13:35 | RAD_ITS ---
PROCEDURE: HIP, UNI W/ PELVIS 2-3 VIEWS 08/05/2025 REASON FOR EXAM: PAIN TECHNIQUE: Procedure Code: [facility] Modality: DX Procedure: HIP, UNI W/ PELVIS 2-3 VIEWS Laterality: Left COMPARISON: 02/07/2024 FINDINGS: BONES: Abnormal contour of the right femoral lesser trochanter. No other findings to suggest fracture. Prior right total hip arthroplasty with well-seated hardware. JOINTS: No dislocation. Severe left hip arthritic changes with joint space narrowing, femoral head remodeling and subchondral sclerosis and cystic change. SOFT TISSUES: Stable position of the sacral neurostimulator device. RAD/HIP, UNI W/ Pelvis 2-3 Views IMPRESSION: 1. Right femoral lesser trochanter contour abnormality, possibly artifactual d ue to leg rotation, however a fracture can not be excluded. Correlate clinically for pain in the right hip. 2. No other signs of fracture. 3. Severe left hip osteoarthrosis. Reading Location: [id number]
--- NOTE | 2025-08-05 13:35 | RAD_ITS ---
PROCEDURE: CHEST 1 VIEW (PORTABLE) 08/05/2025 REASON FOR EXAM: FALL TECHNIQUE: Frontal view of the chest. COMPARISON: 02/07/2020 FINDINGS: Hardware: Sternotomy wires are present. Heart: The heart size is normal. Lungs: The lungs are clear. No pneumothorax or pleural effusion. Bones: Degenerative changes are identified within the thoracic spine. Partially imaged cervical spine fixation hardware. RAD/Chest 1 View (Portable) IMPRESSION: No Acute Findings. Reading Location[facility]
--- NOTE | 2025-08-05 13:35 | RAD_ITS ---
PROCEDURE: KNEE 4 OR MORE VIEWS 08/05/2025 REASON FOR EXAM: PAIN TECHNIQUE: Procedure Code: RADKN Modality: DX Procedure: KNEE 4 OR MORE VIEWS Laterality: Left COMPARISON: None. FINDINGS: BONES: No acute fracture or focal osseous lesion. Generalized osteopenia. JOINTS: No dislocation. The joint spaces are preserved. SOFT TISSUES: Vascular calcifications noted. RAD/Knee 4 or More Views IMPRESSION: NO EFFUSION, ACUTE FRACTURE OR DISLOCATION. Reading Location: [id number]
--- NOTE | 2025-08-05 14:46 | CT_ITS ---
PROCEDURE: PELVIS WITHOUT IV CONTRAST 08/05/2025 REASON FOR EXAM: LEFT HIP PAIN TECHNIQUE: Procedure Code: CTPEL Modality: CT Procedure: PELVIS WITHOUT IV CONTRAST One or more dose reduction techniques were used (e.g., Automated exposure control, adjustment of the mA and/or kV according to patient size, use of iterative reconstruction technique). RADIATION DOSE SUMMARY: CTDlvol: 15.6 mGy DLP: 547 mGycm COMPARISON: Reviewed FINDINGS: Partially visualized intra-abdominal contents are unremarkable. Chronic changes including vascular calcifications, sigmoid diverticulosis without CT evidence of diverticulitis. Anatomic total right hip arthroplasty. Age indeterminate compression deformity involving L3. Severe left hip osteoarthrosis with subchondral cystic change and jtzb-[id number]-ocwp apposition with questionable flattening of the medial aspect of the left humeral head raising the possibility of avascular necrosis. MRI with contrast is required for confirmation as deemed clinically necessary. CT/Pelvis without IV Contrast IMPRESSION: Age indeterminate compression deformity involving L3. Severe left hip osteoarthrosis with subchondral cystic change and chvv-nq-cmea apposition with questionable flattening of the medial aspect of the left humeral head raising the possibility of avascular nec rosis. MRI with contrast is required for confirmation as deemed clinically necessary. Reading Location: [facility]
[2025-08-05 15:00] VITALS: BP 143/64; PULSE 60; RESP 17; O2SAT 96
[2025-08-05 15:00] LABS: Color, Urine Yellow (Yellow); Glucose, Dipstick Normal (Normal); Ketone-Dipstick 15 mg/dl (Negative); Leukocyte Esterase-Dipstick 500 /ul (Negative); Nitrite-Dipstick Negative (Negative); Occult Blood-Urine 50 /ul (Negative); Protein-Dipstick 100 mg/dl (Negative); Specific Gravity, Urine 1.010 (1.002-1.030); Urine Bilirubin Dipstick Negative (Negative)
[2025-08-05 15:21] LABS: Mucous, Urine RARE /hpf (<or=2+); Red Blood Cells-Urine 0-5 SEEN /hpf (0-5); Squamous Epithelial Cells - UA 0-5 SEEN /hpf (5-10)
[2025-08-05 16:57] LABS: Anion Gap 11 (5-15); BUN 17 mg/dL (4-19); BUN/Creat Ratio 22.8 RATIO (10-20); Calcium,Total 9.0 mg/dL (7.6-11.0); Carbon Dioxide 27.4 mmol/L (21.0-32.0); Chloride 104 mmol/L (98-108); Estimated Creatinine Clearance 43.78 ml/min (50-250); Glucose 101 mg/dL (70-99); Potassium 4.2 mmol/L (3.3-5.1)
[2025-08-05 17:00] VITALS: BP 135/68; PULSE 80; RESP 20; O2SAT 97
--- NOTE | 2025-08-05 17:09 | ED.RN ---
Talked to RN @ [facility] and gave report.
[2025-08-05 17:10] VITALS: BP 135/68; PULSE 82; RESP 20; TEMP 36.6; O2SAT 100
== END 2025-08-05 18:04 | disposition home or self-care (01) ==
PROVIDERS: Emergency Provider Surgery; PCP Internal Medicine; Visit Provider Surgery
DX: S70.02XA Contusion of left hip, initial encounter (principal); F03.90 Unspecified dementia, unspecified severity, without behavioral disturbance, psychotic disturbance, mood disturbance, and anxiety; N39.0 Urinary tract infection, site not specified; B96.20 Unspecified Escherichia coli [E. coli] as the cause of diseases classified elsewhere; M16.12 Unilateral primary osteoarthritis, left hip; B96.4 Proteus (mirabilis) (morganii) as the cause of diseases classified elsewhere; R29.6 Repeated falls; Z91.81 History of falling; W19.XXXA Unspecified fall, initial encounter
CPT/HCPCS: 36415; 51702; 70450; 71045; 72125; 72192; 73502; 73564; 80048; 81001; 85025; 87077; 87086; 87088; 87186; 93005; 96374; 96375; 96376; 99285; A4216; J2405

== ENCOUNTER 2025-08-05 21:22 | Emergency (ER) | payer MEDICARE, MEDICAID, SELFPAY ==
[2025-08-05 21:25] VITALS: BP 174/96; PULSE 92; RESP 18; TEMP 36.6; O2SAT 94; BMI 24.9
[2025-08-05 21:27] VITALS: BP 174/96; PULSE 93; RESP 18; TEMP 36.6; O2SAT 94
--- NOTE | 2025-08-05 22:04 | CT_ITS ---
PROCEDURE: SPINE CERVICAL WITHOUT CONTRAS 08/06/2025 REASON FOR EXAM: FALL TECHNIQUE: Procedure Code: CTSPC Modality: CT Procedure: SPINE CERVICAL WITHOUT CONTRAS Coronal and Sagittal reconstruction series were provided. One or more dose reduction techniques were used (e.g., Automated exposure control, adjustment of the mA and/or kV according to patient size, use of iterative reconstruction technique. RADIATION DOSE SUMMARY: CTDlvol: 12.58, 12.58 mGy DLP: 253.67, 253.67 mGycm COMPARISON: 05-Aug-2025 FINDINGS: Anterior fixation of C4 and C5 vertebrae by plate and screws with C4 down to C7 bony fusion. No hardware break, loosening or osseous infection. Straightened cervical lordosis denoting myospasm. Mild C7 and T1 anterolithesis. Reduced bone density. The examined vertebral bodies show no structural collapse or posterior neural elements fractures. Intact atlanto-axial interval. Degenerative changes of the atlanto-axial articulation with related capsular calcifications. Cervical spondylodegenerative changes evident by marginal osteophytic lipping and multilevel subchondral sclerosis of the examined vertebral end plates with multilevel disc spaces narrowing. Multilevel degenerative unco-vertebral arthropathy with osteophytes formation seen encroaching upon the corresponding neural exit foramina. Multilevel degenerative facet arthropathy. Multilevel diffuse disc bulges with posterior osteophytes indenting the theca and encroaching upon the related neural exit foramina. No paraspinal masses. Vascular atheromatous calcifications CT/Spine Cervical without Contras IMPRESSION: Stable study findings. No vertebral fractures, structural collapse or acute dislocation. Reading Location: [facility]
--- NOTE | 2025-08-05 22:04 | CT_ITS ---
PROCEDURE: BRAIN/HEAD WITHOUT CONTRAST 08/05/2025 REASON FOR EXAM: FALL UNWTINESSED TECHNIQUE: Procedure Code: CTBR Modality: CT Procedure: BRAIN/HEAD WITHOUT CONTRAST Coronal and Sagittal reconstruction series were provided. One or more dose reduction techniques were used (e.g., Automated exposure control, adjustment of the mA and/or kV according to patient size, use of iterative reconstruction technique. COMPARISON: Earlier on the same day. FINDINGS: No acute intracranial hemorrhage. No midline shift. Mild generalized atrophy with commensurate mild ventriculomegaly. Mild low attenuation in the cerebral white matter is nonspecific, unchanged from the previous study, and likely represents mild chronic microvascular ischemic changes. Atherosclerotic calcifications within the carotid siphons and vertebral arteries. No extra-axial fluid collection is identified. No fracture. The calvarium is intact. Fluid level within the right sphenoid sinus, increased since the previous study. 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 CT/Brain/Head without Contrast IMPRESSION: No acute intracranial MR abnormality. Acute right sphenoid sinusitis, worsened since the previous study. Reading Location: [id number]
[2025-08-05 22:23] VITALS: BP 164/139; PULSE 93; RESP 17; O2SAT 97
--- OUTSIDE RECORDS SUMMARY | 2025-08-05 22:24 | XMS RPT_ITS | CCD ---
Author Organization [facility] Care Team Providers Care Mortgage Protection Specialist Name Role Phone Hung Davison Neo Unavailable Unavailable NicoleMirella jiang Unavailable Armando Gutierrez Unavailable [facility] Unavailable Art Curry Unavailable Alba Sargent Unavailable Amita Antoine Unavailable [phone] Dick Morris Unavailable [facility] Unavailable [phone] Kya Valdivia Unavailable Joe Skinner Unavailable Alyson Dixon Unavailable Unavailable Unavailable Unavailable TRUDY Chambers Attending Provider Dr. Cl Tsang Primary Care Provider MD Cl Tsang Referring Provider Unavailable Dr. Thom Montiel Attending Provider TRUDY Chambers Referring Provider [phone] Esha CHECK TOTALER, KINDRA-Lio Pastrana Attending Provider Dr. Cl Williamson Primary Care Provider Dr. Cl Tsang Primary Care Provider Esha CHECK TOTALER, CHECK TOTALER-C Zeina Attending Provider Dr. Cl Williamson Primary Care Provider Esha CHECK TOTALER, CHECK TOTALER-C Zeina Attending Provider Dr. Cl Williamson Referring Provider TRUDY Chambers Attending Provider [phone] Dr. Thom Montiel Attending Provider [phone] Cl Tsang Primary Care Provider Dr. Cl Tsang Referring Provider TRUDY Chambers Attending Provider [phone] Dr. Thom Montiel Attending Provider [facility] CHECK TOTALER, CHECK TOTALER-C Zeina Attending Provider Dr. Tomas Humphrey Attending Provider [phone] Dr. Yesika Faust Attending Provider [phone] Dr. Cl Tsang Primary Care Provider Dr. Cl Tsang Referring Provider Dr. Thom Montiel Attending Provider [phone] Cl Tsang Primary Care Provider Esha CHECK TOTALER, CHECK TOTALER-C Zeina Attending Provider Dr. Yesika Reed Attending Provider [phone] Dr. Cl Tsang Referring Provider TRUDY Chambers Attending Provider [phone] Dr. Cl Tsang Primary Care Provider Dr. Cl Tsang Referring Provider TRUDY Chambers Attending Provider [phone] Dr. Thom Montiel Attending Provider [phone] [facility] CHECK TOTALER, CHECK TOTALER-C Zeina Attending Provider Dr. Yesika Reed Attending Provider [phone] Dr. Cl Tsang Primary Care Provider Dr. Yesika Faust Attending Provider [phone] TRUDY Parada Attending Provider [phone] Dr. Cl Tsang Primary Care Provider Dr. Yesika Faust Attending Provider [phone] Hawa CHECK TOTALER-C Carmen Attending Provider [phone] Christianne GE, [...] Dr. Napoles Attending Provider [phone] Esha CHECK TOTALER-CZeina Attending Provider [phone] Christianne GE, Dr. Napoles Primary Care Provider Yesika Faust MD Attending Provider Carlotta Balbuena CHECK TOTALER-CZeina Attending Provider Christianne GE, Dr. Napoles Primary Care Provider Yesika Faust MD Attending Provider Carlotta Faust MD, Dr. Napoles Attending Provider [phone] Miguel Parada Attending Provider [phone] Christianne GE, Dr. Napoles Primary Care Provider Yesika Faust MD Attending Provider Unavailchristian Balbuena CHECK TOTALER-CZeina Attending Provider Christianne GE, Dr. Napoles Primary Care Provider Yesika Faust MD Attending Provider Carlotta Faust MD, Dr. Napoles Primary Care Physician Yesika Faust MD Attending Physician Adrian Faust MD, Dr. Napoles Attending Physician [phone] Esha CHECK TOTALER-CZeina Attending Physician Miguel Parada Attending Physician [phone] Christianne GE, Yesika Referring Provider Carlotta Oneil MD, Aric Attending Physician [phone] Aric Oneil MD Emergency Department Physician Oleghe [...] e Oleghe, Efewongbe Primary Care Unavailable [place] CHECK TOTALER, Zeina Attending Unavailable Oleghe, Efewongbe Primary Care [...] Unavailable Oleghe, Efewongbe Primary Care Unavailable Tickrobina CHECK TOTALERZeina Attending Unavailable Oleghe, Efewongbe Primary Care Unavailable Oleghe, Efewongbe Attending Unavailable [place] CHECK TOTALER, Zeina Attending Unavailable Oleghe, Efewongbe Primary Care Unavailable Oleghe, Efewongbe Attending Unavailable Oleghe, Efewongbe Primary Care Unavailable Oleghe, Efewongbe Primary Care Unavailable Oleghe, Efewongbe Attending Unavailable Oleghe, Efewongbe Primary Care Unavailable Miguel Parada Attending Unavailable [place] CHECK TOTALER, Zeina Attending Unavailable Oleghe, Efewongbe Primary Care Unavailable Esha CHECK TOTALERZeina Attending Unavailable Oleghe, Efewongbe Primary Care Unavailable [...] HYDROcodone; Translations: [VICODIN] allergy to substance 05-08-20 [employer] Work Phone: (20 sources) HYDROcodone; Translations: [HYDROCODONE] allergy to substance 12-30-19 12 Other [facility] Work Phone: (1 source) Sulfonamides (Antibiotic) drug allergy [facility] Work Phone: (18 sources) Acetaminophen [...] (19 sources) Acetaminophen Drug Allergy 09-01-20 Other [facility] (19 sources) Sulfamethoxazole Drug Allergy 09-01-[address] [facility] (1 source) Acetaminophen Drug Allergy 06-28-20 25 [facility] (1 source) Sulfamethoxazole Drug Allergy 06-28-20 25 [facility] Medications Current Medications Medication Drug [...] TABS One tablet by mouth daily ASPIRIN [id number] Kaelyn Ellis RN Start: 11-12-2011 End: 11-12-2011 ASPIRIN LOW DOSE, 81MG (Oral Tablet Delayed Release) [address] qd for 0 days Quantity: 30 {Tablet_DR} Refills: 0 Ordered: 12-Nov-2011 Mirella Mccracken DO, DO, Kathleen Start : 12-Nov-2011 End : 12-Nov-2011 Discontinued End: 04-12-2012 take 1 tablet by mouth once daily ASPIRIN EC 81 MG TBEC One tablet by mouth daily ASPIRIN [id number] Jose Vargas MD brexpiprazole 1 mg oral [...] hand docusate sodium 50 mg / sennosides, skilled nursing 8.6 mg oral tablet (12 sources) Start: [...] One tablet by mouth daily DULOXETINE HCL [id number] Jose Vargas MD Comment on above: substitute [...] 2025 12:00am Complies with drug therapy Vit C,Q-Ww-Dmrkj-Lute in-Zeaxan (10 sources) Start: 05-13-2019 Vit C,B-Ul-Tgaet-Lut ein-Zeaxan Active 1 EACH PO DAILY May 13, 2019 9:27am Start: 05-13-2019 End: 05-21-2023 Vit C,L-Xy-Mqiot-Lutein-Zeax an Discontinued 1 EACH PO DAILY May 13, 2019 12:00am May 21, 2023 10:07am Start: 05-13-2019 End: 05-21-2023 Vit C,I-Uu-Wyhun-Lutein-Zeax an Discontinued 1 EACH PO DAILY May 12, 2019 11:00pm May 21, 2023 9:07am Start: 05-13-2019 Vit C,E-Zn-Courtroom Clerk of-Cyedde-Ssbsfx Active 1 EACH PO DAILY May 12, 2019 11:00pm Start: 05-13-2019 Vit C,E-Zn-Courtroom Clerk ge-Shpikb-Bshsxe Active 1 EACH PO DAILY May 13, 2019 12:00am Completed/Discontinued Medications Medication Drug Class(es) Dates Sig (Normalized) Sig (Original) HYDROCODONE-ACETAM INOPHEN (2 sources) Opioid Agonist Start: 05-07-2016 take 1 tablet by mouth once daily at bedtime NORCO 5-325 MG TABS One tablet by mouth daily @ bedtime HYDROCODONE-ACETAMI NOPHEN [id number] Jose Vargas MD Start: 05-07-2016 End: 06-05-2017 take 1 tablet by mouth once daily at bedtime NORCO 5-325 MG TABS One tablet by mouth daily @ bedtime HYDROCODONE-ACETAMINOPHEN [id number] Jose Vargas MD acetaminophen 325 mg / [...] PERCOCET 5-325 MG TABS As needed OXYCODONE-ACETAMINOPHEN [id number] Kaelyn Ellis RN Start: 12-07-2013 PERCOCET 5-325 MG TABS As needed OXYCODONE-ACETAMINOPHEN [id number] Zaria Trevino PA-C Start: 12-07-2013 End: 11-05-2015 PERCOCET 5-325 MG TABS As ne eded OXYCODONE-ACETAMINOPHEN [id number] Zaria Trevino PA-C Start: 02-10-2013 PERCOCET 10-32 5 MG TABS As needed OXYCODONE-ACETAMINOPHEN [id number] Jose Vargas MD Comment on above: thirty [...] One tablet by mouth daily AMIODARONE HCL [id number] Jose Vargas MD Start: 11-25-2011 take 1 tablet by jeffry th twice daily AMIODARONE HCL 200 MG TABS One tablet by mouth twice daily AMIODARONE HCL [id number] Jose Vargas MD amoxicillin 500 mg oral [...] One tablet by mouth daily ATORVASTATIN CALCIUM [id number] Zaria Trevino PA-C Start: 11-25-2011 End: 04-06-2014 [...] tablet by mouth daily CALCIUM CARBONATE TABS [id number] Dick Morris DO calcium carbonate / vitamin D (2 sources) Start: 01-06-2012 take 1 tablet by mouth once daily CALCIUM + D 600-200 MG-UNIT TABS One tablet by mouth daily CALCIUM CARBONATE-VITAMIN D [id number] Jose Vargas MD Start: 01-06-2012 End: 04-12-2012 take 1 tablet by mouth once daily CALCIUM + D 600-200 MG-UNIT TABS One tablet by mouth daily CALCIUM CARBONATE-VITAMIN D [id number] Jose Vargas MD casanthranol 30 mg / [...] capsule by mouth every week VITAMIN D3, [id number] (Oral Capsule) 1 (one) Capsule Capsule q week for 0 days Quantity: 4 {Capsule} Refills: 3 Ordered: 29-Nov-2015 Alyson Dixon LPN Start : 13-Jul-2014 End : 29-Nov-2015 Inactive Start: 01-06-2012 End: 04-12-2012 take 1 tablet by mouth once daily VITAMIN D 2000 UNIT TABS One tablet by mouth daily CHOLECALCIFEROL [id number] Jose Vargas MD ciprofloxacin 500 mg oral [...] One tablet by mouth daily CRANBERRY CAPS [id number] Zaria Trevino PA-C CRANBERRY-VITAMIN C, 84-20MG (Oral Capsule) (18 sources) Start: 08-14-2014 End: 11-29-2015 take 1 capsule by mouth once daily CRANBERRY-VITAMIN C, 84-20MG (Oral Capsule) 1 (one) Capsule qd for 30 days Refills: 0 Ordered: 29-Nov-2015 Alyosn Dixon LPN Start : 14-Aug-2014 End : [...] 0.05 % OINT apply twice daily DESONIDE [id number] Dick Morris DO desoximetasone 2.5 mg/ml topical cream (20 sources) Corticosteroid Start: 05-07-2011 End: 06-05-2011 TOPICORT, 0.25% (External Cream) 1 Cream bid for 0 days Quantity: 1 {Cream} Refills: 0 Ordered: 05-Jun-2011 Alyson Dixon LPN Start : 07-May-2011 End : 05-Jun-2011 Inactive TOPICORT 0.25 % CREA apply twice daily DESOXIMETASONE [id number] Dick Morris DO End: 04-12-2012 TOPICORT 0.25 % CREA apply t wice daily DESOXIMETASONE [id number] Jose Vargas MD diazePAM 2 mg oral [...] tablet by mouth twice daily DIPHENHYDRAMINE HCL [id number] Mary Nolen RN ergocalciferol 29118 unt oral capsule (20 sources) Provitamin D2 Compound Start: 01-12-2009 End: 04-13-2014 take 1 capsule by mouth every week ERGOCALCIFEROL, 84958WMTM (Oral Capsule) 1 Capsule 2 x week for 0 days Quantity: 8 {Capsule} Refills: 3 Ordered: 13-Apr-2014 Alyson Dixon LPN Start : 12-Jan-2009 End : 13-Apr-2014 Inactive End: 01-06-2012 VITAMIN D (ERGOCALCIFEROL) 5 0000 UNIT CAPS one tablet twice a week ERGOCALCIFEROL [id number] Dick Morris DO escitalopram 10 mg oral [...] tablet by mouth three times daily GABAPENTIN [id number] Jose Vargas MD Start: 02-10-2013 End: 11-05-2015 take 1 tablet by mouth twice daily GABAPENTIN 600 MG TABS One tablet by mouth twice daily GABAPENTIN [id number] Zaria Trevino PA-C Start: 01-06-2012 take 1 tablet by jeffry th three times daily NEURONTIN 100 MG CAPS One tablet by mouth three times daily GABAPENTIN [id number] Jose Vargas MD hydrOXYzine hydrochloride 50 mg [...] once daily ISOSORBIDE MONONITRATE ER 30 MG [id number] One tablet by mouth daily (Imdur) ISOSORBIDE MONONITRATE [id number] Zaria Trevino PA-C Start: 04-27-2013 take 1 tablet by jeffry th once daily IMDUR 60 MG [id number] One tablet by mouth daily ISOSORBIDE MONONITRATE [id number] Jose Vargas MD Start: 03-09-2013 take 1 tablet by jeffry th once daily IMDUR 30 MG [id number]-[id number] One tablet by mouth daily ISOSORBIDE MONONITRATE [id number] Jose Vargas MD Y-[id number]-J01-B6-B2 TAB S (2 sources) take 1 tablet by mouth once daily CEREFOLIN TABS One tablet by mouth daily Y-DBFXPWLULFNA-U08-B6-B2 TABS [id number] Dick Morris DO End: 12-22-2011 take 1 tablet by mouth once daily CEREFOLIN TABS One tablet by mouth daily D-XLKLFXTNWBWI-D64-B6-B2 TABS [id number] Mary Nolen RN lisinopril 5 mg oral tablet (20 sources) Angiotensin Converting Enzyme Inhibitor Start: 04-24-2014 End: 06-27-2014 take 1 tablet by mouth once daily LISINOPRIL 2.5 MG TABS One tablet by mouth daily LISINOPRIL [id number] Kaelyn Ellis RN Start: 12-07-2013 End: 04-10-2014 take 1 tablet by mouth once daily LISINOPRIL 5 MG TABS One tablet by mouth daily LISINOPRIL [id number] Jose Vargas MD Start: 04-27-2013 End: 11-05-2015 [...] TABS One tablet by mouth daily LUTEIN [id number] Zaria Trevino PA-C End: 07-08-2012 take 1 tablet by mouth once daily LUTEIN CAPS One tablet by mouth daily LUTEIN CAPS [id number] Dick Morris DO melatonin 3 mg / [...] TABS One tablet by mouth daily MELOXICAM [id number] Zaria Trevino PA-C metaxalone 800 mg oral [...] tablet by mouth twice daily METOPROLOL TARTRATE [id number] Jose Vargas MD Start: 03-11-2012 End: 04-06-2014 [...] tablet by mouth twice daily METOPROLOL TARTRATE [id number] Jose Vargas MD Multivitamin preparation (18 sources) End: 11-29-2015 MULTIVITAMIN (Oral Liquid) for 0 days Refills: 0 Ordered: 29-Nov-2015 Alyson Dixon LPN End : 29-Nov-2015 Inactive nitroglycerin 0.4 mg sublingual tablet (20 sources) Nitrate Vasodilator Start: 01-06-2012 End: 04-10-2014 NITROSTAT 0.4 MG SUBL 1 tablet under tongue every 5 min up to 3 X NITROGLYCERIN [id number] Jose Vargas MD Start: 12-26-2011 End: 11-29-2015 [...] CPDR One capsule by mouth daily OMEPRAZOLE [id number] Lextimi Munoz Start: 12-31-2011 End: 06-20-2013 PRILOSEC, 20MG (Oral Capsule Delayed Release) [address] qd for 0 days Quantity: 30 {Capsule_DR} Refills: 0 Ordered: 20-Jun-2013 FRANCI Castelan Start : 31-Dec-2011 End : 20-Jun-2013 Inactive End: 12-22-2011 take 1 tablet by mouth once daily PRILOSEC 10 MG CPDR One tablet by mouth daily OMEPRAZOLE 87645991002 Dick Morris DO oxyCODONE hydrochloride 5 mg [...] One tablet by mouth daily PANTOPRAZOLE SODIUM 21942245942 Jose Vargas MD pravastatin sodium 80 mg [...] Three tablets by mouth daily PREDNISONE TABS 40269670527 Mary Nolen RN take 3 tablets by mo [facility] once daily PREDNISONE TABS Three tablets by mouth daily PREDNISONE TABS [id number] Dick Morris DO rosuvastatin calcium 10 mg [...] One tablet by mouth daily ROSUVASTATIN CALCIUM [id number] Jose Vargas MD Comment on above: substitute generic Mail order. DOCUSATE SODIUM CAPS (2 sources) COLACE CAPS as n eeded DOCUSATE SODIUM CAPS [id number] Dick Morris DO End: 10-10-2014 COLACE CAPS as needed 10/10 DOCUSATE SODIUM CAPS [id number] Zaria Trevino PA-C 28 actuat teriparatide 0.02 [...] mouth once daily DETROL LA 4 MG [id number] One tablet by mouth daily TOLTERODINE TARTRATE 37940494210 Mary A Tamanna RN take 1 tablet by jeffry th once daily DETROL LA 4 MG [id number] One tablet by mouth daily TOLTERODINE TARTRATE [id number] Dick Morris DO traMADol hydrochloride 50 mg [...] Quantity: 60 {Tablet} Refills: 0 Ordered: 26-Nov-2011 Mirelal Mccracken DO, DO, Kathleen Start : 26-Nov-2011 End : 26-Nov-2011 Discontinued Comments: [age]-- after bypass surgery take 1 tablet by jeffry th three times daily ULTRAM TABS One tablet by mouth three times daily TRAMADOL HCL TABS [id number] Dick Morris DO End: 12-22-2011 take 1 tablet by mouth three times daily ULTRAM TABS One tablet by mouth three times daily TRAMADOL HCL TABS [id number] Mary Nolen RN Comment on above: [age]-- [...] : 01-Dec-2013 End : 06-Apr-2014 Inactive Vit C,I-Jx-Dhbei-Lutein-Ze axan 1 EACH capsule (12 sources) Start: 019 End: take 1 capsule by mouth once daily Vit C,F-Bi-Tfwhd-Lutein-Z eaxan 1 EACH capsule Discontinued 1 NMA PO DAILY May 13, 2019 12:00am May 21, 2023 10:07am CHOLECALCIFEROL (4 sources) Start: End: take 1 tablet by mouth once daily VITAMIN D 1000 UNIT TABS One tablet by mouth daily CHOLECALCIFEROL [id number] Zaria Trevino PA-C Start: 11-02-2015 take 1 tablet by jeffry th once daily VITAMIN D 1000 UNIT TABS One tablet by mouth daily CHOLECALCIFEROL [id number] Mary Nolen RN Start: 02-10-2013 End: 10-10-2014 take 1 tablet by mouth once daily VITAMIN D 1000 UNIT TABS One tablet by mouth daily CHOLECALCIFEROL [id number] Zaria Trevino PA-C Start: 02-10-2013 take 1 tablet by jeffry th once daily VITAMIN D 1000 UNIT TABS One tablet by mouth daily CHOLECALCIFEROL [id number] Jose Vargas MD Problems Active Problems Problem [...] disease (20 sources) Atherosclerotic heart disease of [place] coronary artery without angina pectoris; Translations: [Coronary [...] current use of drug therapy; Translations: [Other filler leaf cutter long (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 therapy] 11-23-2017 Episodic Other bone [...] (current) use of other medications; Translations: [Other filler leaf cutter long (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 therapy] Onset: 07-08-2013 Resolved: 05-11-2015 [...] p laced her on asa-- cardio at junction- he said no more plavix ever- rec [...] p laced her on asa-- cardio at junction- he said no more plavix ever- rec [...] Auto (Unsp spec) [#/Vol] 1.59 10*3/uL 0.83-4.51 [facility] Absolute neutrophil countOrd ered By: Aric Oneil on 06-28-2025 Neutrophils (Bld) [#/Vol] 2.8 10*3/uL 2.0-7.7 [facility] Anion gap in Serum or Plasma Ordered By: Aric Oneil on 06-28-2025 Anion gap [Moles/Vol] 9 mmol/L 01-26 [facility] Automated lymphocyte count a s percentage of total leukocytesOrdered By: Aric Oneil on 06-28-2025 Lymphocytes/100 WBC Auto (Unsp spec) 30.5 % 19-41 [facility] BUN/creatinine ratioOrdered By: Aric Oneil on 06-28-2025 Urea nitrogen/Creatinine [Mass ratio] 25.4 mg/mg High 07-03 [facility] Basic Metabolic Profile (BMP )on 06-28-2025 BUN/CRE 25.4 RATIO High 07-03 [facility] Comment on above: Performed By: #### L 100.0100, L500.2500 #### [facility] [address] [place], [address] Calcium [Mass/Vol] 9.4 mg/dL Normal 7.6-11.0 [facility] Comment on above: Performed By: #### L 100.0100, L500.2500 #### [facility] [address] [place], [address] Chloride [Moles/Vol] 103 mmol/L Normal 98-108 [facility] Comment on above: Performed By: #### L 100.0100, L500.2500 #### [facility] [address] [place], [address] CO2 [Moles/Vol] 28.7 mmol/L Normal 21.0-32.0 [facility] Comment on above: Performed By: #### L 100.0100, L500.2500 #### [facility] [address] [place], [address] Creatinine [Mass/Vol] 0.78 mg/dL Normal 0.70-1.20 [facility] Comment on above: Performed By: #### L 100.0100, L500.2500 #### [facility] [address] [place], [address] GAP 9 Normal 5-15 [facility] Comment on above: Performed By: #### L 100.0100, L500.2500 #### [facility] [address] [place], [address] GFR/1.73 sq M.predicted among non-blacks MDRD (S/P/Bld) [Vol rate/Area] 74 mL/min/{1.73_m2} Normal >60 [facility] Comment on above: Result Comment: mL/m in/1.73m2 CKD-EPI Creatinine Equation (2020) Performed By: #### L 100.0100, L500.2500 #### [facility] [address] [place], [address] Glucose [Mass/Vol] 129 mg/dL High 70-99 [facility] Comment on above: Performed By: #### L 100.0100, L500.2500 #### [facility] [address] [place], [address] Potassium [Moles/Vol] 4.3 mmol/L Normal 3.3-5.1 [facility] Comment on above: Performed By: #### L 100.0100, L500.2500 #### [facility] [address] [place], [address] Sodium [Moles/Vol] 141 mmol/L Normal 133-145 [facility] Comment on above: Performed By: #### L 100.0100, L500.2500 #### [facility] [address] [place], [address] Urea nitrogen [Mass/Vol] 20 mg/dL High 4-19 [facility] Comment on above: Performed By: #### L 100.0100, L500.2500 #### [facility] [address] [place], [address] Basophil percentageOrdered B y: Aric Oneil on 06-28-2025 Basophils/100 WBC (Bld) 0.6 % 0-1 [facility] Bilirubin Test strip Ql (U)O rdered By: Aric Oneil on 06-28-2025 Bilirubin Ql (U) Negative Negative [facility] CBC W/Diff, Automatedon 10- Absolute Lymph 1.59 X10 3/uL Normal 0.83-4.51 [facility] Comment on above: Performed By: #### L 100.0100, L500.2500 #### [facility] [address] [place], [address] Absolute Neut 2.8 X10 3/uL Normal 2.0-7.7 [facility] Comment on above: Performed By: #### L 100.0100, L500.2500 #### [facility] [address] [place], [address] Basophils/100 WBC (Bld) 0.6 % Normal 0-1 [facility] Comment on above: Performed By: #### L 100.0100, L500.2500 #### [facility] [address] [place], [address] Eosinophils/100 WBC (Bld) 4.6 % Normal 0-5 [facility] Comment on above: Performed By: #### L 100.0100, L500.2500 #### [facility] [address] [place], [address] Erythrocyte distribution width (RBC) [Ratio] 13.2 % Normal 11.6-14.6 [facility] Comment on above: Performed By: #### L 100.0100, L500.2500 #### [facility] [address] [place], [address] Hematocrit (Bld) [Volume fraction] 39.9 % Normal 37-47 [facility] Comment on above: Performed By: #### L 100.0100, L500.2500 #### [facility] [address] [place], [address] Hemoglobin (Bld) [Mass/Vol] 13.2 g/dL Normal 12.0-15.0 [facility] Comment on above: Performed By: #### L 100.0100, L500.2500 #### [facility] [address] [place], [address] IG% 0.200 Normal 0.0-0.9 [facility] Comment on above: Result Comment: IG% - Immature Granulocytes (promyelocytes, myelocytes and metamyelocytes) > 1% indicates that a LEFT SHIFT is Present. Performed By: #### L 100.0100, L500.2500 #### [facility] [address] [place], [address] Lymphocytes/100 WBC (Bld) 30.5 % Normal 19-41 [facility] Comment on above: Performed By: #### L 100.0100, L500.2500 #### [facility] [address] [place], [address] MCH (RBC) [Entitic mass] 31.6 pg Normal 27.0-32.0 [facility] Comment on above: Performed By: #### L 100.0100, L500.2500 #### [facility] [address] [place], [address] MCHC (RBC) [Mass/Vol] 33.1 g/dL Normal 32-36 [facility] Comment on above: Performed By: #### L 100.0100, L500.2500 #### [facility] [address] [place], [address] MCV (RBC) [Entitic vol] 95.5 fL Normal 81-99 [facility] Comment on above: Performed By: #### L 100.0100, L500.2500 #### [facility] [address] [place], [address] Monocytes/100 WBC (Bld) 10.3 % High 0-10 [facility] Comment on above: Performed By: #### L 100.0100, L500.2500 #### [facility] [address] [place], [address] Neutrophils/100 WBC (Bld) 53.8 % Normal 47-70 [facility] Comment on above: Performed By: #### L 100.0100, L500.2500 #### [facility] [address] [place], [address] Nucleated RBC (Bld) [#/Vol] 0 10*3/uL Normal 0-5 [facility] Comment on above: Performed By: #### L 100.0100, L500.2500 #### [facility] [address] [place], [address] Platelet mean volume (Bld) [Entitic vol] 10.2 fL Normal 6.2-12.0 [facility] Comment on above: Performed By: #### L 100.0100, L500.2500 #### [facility] [address] [place], [address] Platelets (Bld) [#/Vol] 219 10*3/uL Normal 150-450 [facility] Comment on above: Performed By: #### L 100.0100, L500.2500 #### [facility] [address] [place], [address] RBC (Bld) [#/Vol] 4.18 10*6/uL Low 4.2-5.4 [facility] Comment on above: Performed By: #### L 100.0100, L500.2500 #### [facility] [address] [place], [address] RDW SD 46.7 fl High 35.1-43.9 [facility] Comment on above: Performed By: #### L 100.0100, L500.2500 #### [facility] [address] [place], [address] WBC (Bld) [#/Vol] 5.2 10*3/uL Normal 4.4-11.0 [facility] Comment on above: Performed By: #### L 100.0100, L500.2500 #### [facility] [address] [place], [address] Carbon dioxide, total [Moles /volume] in Central venous bloodOrdered By: Aric Oneil on 06-28-2025 CO2 [Moles/Vol] 28.7 mmol/L 21.0-32.0 [facility] Chloride assayOrdered By: Nathanael Oneil on 06-28-2025 Chloride [Moles/Vol] 103 mmol/L 98-108 [facility] Emergency Department Summary on 06-28-2025 Emergency Department Summary [facility] Medical Records Department [address] [place] [address] Emergency Department Summary 06/28/25 MR#: [id number] Acct: [id number] Name: AGUSTIN GARCIA Rep #: [id number] : [id number] From: Aric Oneil MD PCP: Dr. Yesika Faust MD Status:REG ER Location: ED HPI History of Present Illness Chief Complaint: Confusion Narrative Narrative: 85-year-old female past medical history of dementia with agitation presents from [facility] after being combative with staff. Patient denies [...] mg intravenously and [facility]. I do not feel that she requires observation or admission as she has a history of dementia with agitation. Disposition is discharged home in stable condition. History Record Review Discussion w/independent historian: Patient Additional rec (more content not included)... Normal [facility] Eosinophil percentageOrdered By: Aric Oneil on 06-28-2025 Eosinophils/100 WBC (Bld) 4.6 % 0-5 [facility] Erythrocyte distribution wid th ratioOrdered By: Aric Oneil on 06-28-2025 Erythrocyte distribution width (RBC) [Ratio] 13.2 % 11.6-14.6 [facility] Erythrocyte distribution wid th standard deviationOrdered By: Aric Oneil on 06-28-2025 Erythrocyte distribution width (RBC) [Ratio] 46.7 fl High 35.1-43.9 [facility] Glomerular filtration rate ( GFR) estimation/1.73 sq m using serum, plasma, or whole bOrdered By: Aric Oneil on 06-28-2025 GFR/1.73 sq M.predicted among non-blacks MDRD (S/P/Bld) [Vol rate/Area] 74 mL/min/{1.73_m2} >60 [facility] Comment on above: mL/min/1.73m2 CKD-EP I Creatinine Equation (2020) Hematocrit Auto (Bld) [Volum e fraction]Ordered By: Aric Oneil on 06-28-2025 Hematocrit (Bld) [Volume fraction] 39.9 % 37-47 [facility] Hemoglobin measurementOrdere d By: Aric Oneil on 06-28-2025 Hemoglobin (Bld) [Mass/Vol] 13.2 g/dL 12.0-15.0 [facility] Immature granulocytes/100 WB C Auto (Bld)Ordered By: Aric Oneil on 06-28-2025 Immature granulocytes/100 WBC (Bld) 0.200 % 0.0-0.9 [facility] Comment on above: IG% - Immature Granu locytes (promyelocytes, myelocytes and metamyelocytes) > 1% indicates that a LEFT SHIFT is Present. Ketones Test strip Ql (U)Ord ered By: Aric Oneil on 06-28-2025 Ketones Ql (U) Negative Negative [facility] MCV (mean corpuscular volume ) determinationOrdered By: Aric Oneil on 06-28-2025 MCV (RBC) [Entitic vol] 95.5 fL 81-99 [facility] Mean corpuscular hemoglobin (MCH) determinationOrdered By: Aric Oneil on 06-28-2025 MCH (RBC) [Entitic mass] 31.6 pg 27.0-32.0 [facility] Mean corpuscular hemoglobin concentration (MCHC) determinationOrdered By: Aric Oneil on 06-28-2025 MCHC (RBC) [Mass/Vol] 33.1 g/dL 32-36 [facility] Mean platelet volume determi nationOrdered By: Aric Oneil on 06-28-2025 Platelet mean volume (Bld) [Entitic vol] 10.2 fL 6.2-12.0 [facility] Microscopic analysis of urin e for red blood cells (RBC)Ordered By: Aric Oneil on 06-28-2025 Microscopic analysis of urine for red blood cells (RBC) 0-5 SEEN /hpf 0-5 [facility] Monocyte percentageOrdered B y: Aric Oneil on 06-28-2025 Monocytes/100 WBC (Bld) 10.3 % High 0-10 [facility] Mucus LM Ql (Urine sed)Order ed By: Aric Oneil on 06-28-2025 Mucus Ql (Urine sed) 0 SEEN /hpf [facility] Neutrophil percentageOrdered By: Aric Oneil on 06-28-2025 Neutrophils/100 WBC (Bld) 53.8 % 47-70 [facility] Nitrite Test strip Ql (U)Ord ered By: Aric Oneil on 06-28-2025 Nitrite Ql (U) Negative Negative [facility] Nucleated red blood cell per centageOrdered By: Aric Oneil on 06-28-2025 Nucleated RBC/100 WBC (Bld) [Ratio] 0 % 0-5 [facility] Platelet countOrdered By: Nathanael Oneil on 06-28-2025 Platelets (Bld) [#/Vol] 219 10*3/uL 150-450 [facility] Potassium measurement (mass/ volume)Ordered By: Aric Oneil on 06-28-2025 Potassium (Unsp spec) [Mass/Vol] 4.3 mmol/L 3.3-5.1 [facility] Protein Test strip Ql (U)Ord ered By: Aric Oneil on 06-28-2025 Protein Ql (U) 15 mg/dl High Negative [facility] RBC Auto (Bld) [#/Vol]Ordere d By: Aric Oneil on 06-28-2025 RBC (Bld) [#/Vol] 4.18 10*6/uL Low 4.2-5.4 [facility] Serum creatinine measurement (mass/volume)Ordered By: Aric Oneil on 06-28-2025 Creatinine [Mass/Vol] 0.78 mg/dL 0.70-1.20 [facility] Serum glucose measurement (m ass/volume)Ordered By: Aric Oneil on 06-28-2025 Glucose [Mass/Vol] 129 mg/dL High 70-99 [facility] Serum or plasma calcium madi urement (mass/volume)Ordered By: Aric Oneil on 06-28-2025 Calcium [Mass/Vol] 9.4 mg/dL 7.6-11.0 [facility] Serum or plasma urea nitroge n measurement (mass/volume)Ordered By: Aric Oneil on 10-15-2025 Urea nitrogen [Mass/Vol] 20 mg/dL High 4-19 [facility] Sodium levelOrdered By: Aric Oneil on 06-28-2025 Sodium [Moles/Vol] 141 mmol/L 133-145 [facility] Squamous epithelial cells de tection in urine sediment by light microscopyOrdered By: Aric Oneil on 06-28-2025 Epithelial cells.squamous LM Ql (Urine sed) 0 SEEN /hpf 5-10 [facility] Urinalysis, Completeon 06-28 RBC 0-5 SEEN Normal 0-5 [facility] Comment on above: Order Comment: YANCI CTOR TO SPECIFY Performed By: #### L [id number] #### [facility] [address] [place], [address] WBC 0-5 SEEN Normal 0-5 [facility] Comment on above: Order Comment: YANCI CTOR TO SPECIFY Performed By: #### [id number] #### [facility] [address] [place], [address] BACTERIA 0 SEEN Normal None Seen [facility] Comment on above: Order Comment: YANCI CTOR TO SPECIFY Performed By: #### L [id number] #### [facility] [address] [place], [address] EPI,SQUAMOUS 0 SEEN Normal 5-10 [facility] Comment on above: Order Comment: YANCI CTOR TO SPECIFY Performed By: #### [id number] #### [facility] [address] [place], [address] Mucus Ql (Urine sed) 0 SEEN Normal [facility] Comment on above: Order Comment: YANCI CTOR TO SPECIFY Performed By: #### [id number] #### [facility] [address] [place], [address] Urine clarityOrdered By: Pushpa Oneil on 06-28-2025 Clarity (U) Clear Clear [facility] Urine color determinationOrd ered By: Aric Oneil on 06-28-2025 Color (U) Yellow Yellow [facility] Urine glucose detectionOrder ed By: Aric Oneil on 06-28-2025 Glucose Ql (U) Normal mg/dl Normal [facility] Urine leukocyte esterase det ection by dipstickOrdered By: Aric Oneil on 06-28-2025 Leukocyte esterase Test strip Ql (U) Negative Negative [facility] Urine pHOrdered By: Aric vasquez on 06-28-2025 pH (U) 6.5 [pH] 5.0 - 8.0 [facility] Urine sediment bacteria coun t by microscopy (number/high power field)Ordered By: Aric Oneil on 06-28-2025 Bacteria LM.HPF (Urine sed) [#/Area] 0 /[HPF] None Seen [facility] Urine specific gravity measu rementOrdered By: Aric Oneil on 06-28-2025 Specific gravity (U) [Rel density] 1.015 1.002-1.03 0 [facility] Urine urobilinogen measureme ntOrdered By: Aric Oneil on 06-28-2025 Urobilinogen Ql (U) Normal mg/dl Normal [facility] White blood cell (WBC) count Ordered By: Aric Oneil on 06-28-2025 WBC (Bld) [#/Vol] 5.2 10*3/uL 4.4-11.0 [facility] White blood cell countOrdere d By: Aric Oneil on 06-28-2025 White blood cell count 0-5 SEEN /hpf 0-5 [facility] Absolute lymphocyte countOrd ered By: Yesika Faust on 06-19-2025 Lymphocytes Auto (Unsp spec) [#/Vol] 2.09 10*3/uL 0.83-4.51 [facility] Absolute neutrophil countOrd ered By: Yesika Faust on 06-19-2025 Neutrophils (Bld) [#/Vol] 2.4 10*3/uL 2.0-7.7 [facility] Anion gap in Serum or Plasma Ordered By: Yesika Faust on 06-19-2025 Anion gap [Moles/Vol] 11 mmol/L 01-26 [facility] Automated lymphocyte count a s percentage of total leukocytesOrdered By: Yesika Faust on 06-19-2025 Lymphocytes/100 WBC Auto (Unsp spec) 38.7 % 19-41 [facility] BUN/creatinine ratioOrdered By: Yesika Faust on 06-19-2025 Urea nitrogen/Creatinine [Mass ratio] 28.8 mg/mg High 10-20 [facility] Basophil percentageOrdered B y: Yesika Faust on 06-19-2025 Basophils/100 WBC (Bld) 0.6 % 0-1 [facility] Carbon dioxide, total [Moles /volume] in Central venous bloodOrdered By: ky Faust on 06-19-2025 CO2 [Moles/Vol] 25.4 mmol/L 21.0-32.0 [facility] Chloride assayOrdered By: Tad Faust on 06-19-2025 Chloride [Moles/Vol] 106 mmol/L 98-108 [facility] Eosinophil percentageOrdered By: Yesika Faust on 06-19-2025 Eosinophils/100 WBC (Bld) 7.0 % High 0-5 [facility] Erythrocyte distribution wid th ratioOrdered By: ky Faust on 06-19-2025 Erythrocyte distribution width (RBC) [Ratio] 13.3 % 11.6-14.6 [facility] Erythrocyte distribution wid th standard deviationOrdered By: [facility] Faust on 06-19-2025 Erythrocyte distribution width (RBC) [Ratio] 46.5 fl High 35.1-43.9 [facility] Glomerular filtration rate ( GFR) estimation/1.73 sq m using serum, plasma, or whole bOrdered By: Yesika Faust on 06-19-2025 GFR/1.73 sq M.predicted among non-blacks MDRD (S/P/Bld) [Vol rate/Area] 91 mL/min/{1.73_m2} >60 [facility] Comment on above: mL/min/1.73m2 CKD-EP I Creatinine Equation (2020) Hematocrit Auto (Bld) [Volum e fraction]Ordered By: Yesika Faust on 06-19-2025 Hematocrit (Bld) [Volume fraction] 38.1 % 37-47 [facility] Hemoglobin measurementOrdere d By: Yesika Faust on 06-19-2025 Hemoglobin (Bld) [Mass/Vol] 12.9 g/dL 12.0-15.0 [facility] Immature granulocytes/100 WB C Auto (Bld)Ordered By: Yesika Faust on 06-19-2025 Immature granulocytes/100 WBC (Bld) 0.200 % 0.0-0.9 [facility] Comment on above: IG% - Immature Granu locytes (promyelocytes, myelocytes and metamyelocytes) > 1% indicates that a LEFT SHIFT is Present. MCV (mean corpuscular volume ) determinationOrdered By: Yesika Faust on 06-19-2025 MCV (RBC) [Entitic vol] 95.0 fL 81-99 [facility] Mean corpuscular hemoglobin (MCH) determinationOrdered By: Yesika Faust on 06-19-2025 MCH (RBC) [Entitic mass] 32.2 pg High 27.0-32.0 [facility] Mean corpuscular hemoglobin concentration (MCHC) determinationOrdered By: Yesika Faust on 06-19-2025 MCHC (RBC) [Mass/Vol] 33.9 g/dL 32-36 [facility] Mean platelet volume determi nationOrdered By: Yesika Faust on 06-19-2025 Platelet mean volume (Bld) [Entitic vol] 10.8 fL 6.2-12.0 [facility] Monocyte percentageOrdered B y: Yesika Faust on 06-19-2025 Monocytes/100 WBC (Bld) 9.1 % 0-10 [facility] Neutrophil percentageOrdered By: Yesika Faust on 06-19-2025 Neutrophils/100 WBC (Bld) 44.4 % Low 47-70 [facility] Nucleated red blood cell per centageOrdered By: Yesika Faust on 06-19-2025 Nucleated RBC/100 WBC (Bld) [Ratio] 0 % 0-5 [facility] Platelet countOrdered By: Tad Faust on 06-19-2025 Platelets (Bld) [#/Vol] 193 10*3/uL 150-450 [facility] Potassium measurement (mass/ volume)Ordered By: Yesika Faust on 06-19-2025 Potassium (Unsp spec) [Mass/Vol] 3.9 mmol/L 3.3-5.1 [facility] RBC Auto (Bld) [#/Vol]Ordere d By: Yesika Faust on 06-19-2025 RBC (Bld) [#/Vol] 4.01 10*6/uL Low 4.2-5.4 [facility] Serum creatinine measurement (mass/volume)Ordered By: Yesika Faust on 06-19-2025 Creatinine [Mass/Vol] 0.51 mg/dL Low 0.70-1.20 [facility] Serum glucose measurement (m ass/volume)Ordered By: Yesika Faust on 06-19-2025 Glucose [Mass/Vol] 91 mg/dL 70-99 [facility] Serum or plasma calcium madi urement (mass/volume)Ordered By: Yesika Faust on 06-19-2025 Calcium [Mass/Vol] 9.2 mg/dL 7.6-11.0 [facility] Serum or plasma urea nitroge n measurement (mass/volume)Ordered By: Yesika Faust on 06-19-2025 Urea nitrogen [Mass/Vol] 15 mg/dL 4-19 [facility] Sodium levelOrdered By: Jed Faust on 06-19-2025 Sodium [Moles/Vol] 142 mmol/L 133-145 [facility] White blood cell (WBC) count Ordered By: Yesika Faust on 06-19-2025 WBC (Bld) [#/Vol] 5.4 10*3/uL 4.4-11.0 [facility] Bilirubin Test strip Ql (U)O rdered By: Yesika Faust on 06-03-2025 Bilirubin Ql (U) Negative Negative [facility] Ketones Test strip Ql (U)Ord ered By: Yesika Faust on 06-03-2025 Ketones Ql (U) 15 mg/dl High Negative [facility] Microscopic analysis of urin e for red blood cells (RBC)Ordered By: Yesika Faust on 06-03-2025 Microscopic analysis of urine for red blood cells (RBC) 0-5 SEEN /hpf 0-5 [facility] Mucus LM Ql (Urine sed)Order ed By: Yesika Faust on 06-03-2025 Mucus Ql (Urine sed) 0 SEEN /hpf [facility] Nitrite Test strip Ql (U)Ord ered By: Yesika Faust on 06-03-2025 Nitrite Ql (U) Positive High Negative [facility] Protein Test strip Ql (U)Ord ered By: Yesika Faust on 06-03-2025 Protein Ql (U) 30 mg/dl High Negative [facility] Squamous epithelial cells de tection in urine sediment by light microscopyOrdered By: Yesika Faust on 06-03-2025 Epithelial cells.squamous LM Ql (Urine sed) 0-5 SEEN /hpf 5-10 [facility] Transitional cells detection in urine sediment by light microscopyOrdered By: Yesika Faust on 06-03-2025 Transitional cells LM Ql (Urine sed) 0-5 SEEN /hpf 0-5 [facility] Urine clarityOrdered By: Rnadall Faust on 06-03-2025 Clarity (U) Cloudy Clear [facility] Urine color determinationOrd ered By: Yesika Faust on 06-03-2025 Color (U) Yellow Yellow [facility] Urine cultureOrdered By: Randall Faust on 06-03-2025 Bacteria identified Cx Nom (U) Staphylococcus aureus Abnormal [facility] Bacteria identified Cx Nom (U) Negative Abnormal [facility] Urine glucose detectionOrder ed By: Yesika Faust on 06-03-2025 Glucose Ql (U) Normal mg/dl Normal [facility] Urine leukocyte esterase det ection by dipstickOrdered By: Yesika Faust on 06-03-2025 Leukocyte esterase Test strip Ql (U) 500 /ul High Negative [facility] Urine pHOrdered By: Fernando Faust on 06-03-2025 pH (U) 6.0 [pH] 5.0 - 8.0 [facility] Urine sediment bacteria coun t by microscopy (number/high power field)Ordered By: Yesika Faust on 06-03-2025 Bacteria LM.HPF (Urine sed) [#/Area] RARE /hpf None Seen [facility] Urine specific gravity measu rementOrdered By: Yesika Faust on 06-03-2025 Specific gravity (U) [Rel density] 1.020 1.002-1.03 0 [facility] Urine urobilinogen measureme ntOrdered By: Yesika Faust on 06-03-2025 Urobilinogen Ql (U) Normal mg/dl Normal [facility] White blood cell countOrdere d By: Yesika Faust on 06-03-2025 White blood cell count >100 SEEN /hpf 0-5 [facility] Absolute lymphocyte countOrd ered By: Yesika Faust on 05-22-2025 Lymphocytes Auto (Unsp spec) [#/Vol] 2.01 10*3/uL 0.83-4.51 [facility] Absolute neutrophil countOrd ered By: Yesika Faust on 05-22-2025 Neutrophils (Bld) [#/Vol] 3.0 10*3/uL 2.0-7.7 [facility] Anion gap in Serum or Plasma Ordered By: Yesika Faust on 05-22-2025 Anion gap [Moles/Vol] 11 mmol/L 5-15 [facility] Automated lymphocyte count a s percentage of total leukocytesOrdered By: Yesika Faust on 05-22-2025 Lymphocytes/100 WBC Auto (Unsp spec) 32.4 % 19-41 [facility] BUN/creatinine ratioOrdered By: ky Faust on 05-22-2025 Urea nitrogen/Creatinine [Mass ratio] 32.0 mg/mg High 10-20 [facility] Basophil percentageOrdered B y: Yesika Faust on 05-22-2025 Basophils/100 WBC (Bld) 0.8 % 0-1 [facility] Bilirubin directOrdered By: Yesika Faust on 05-22-2025 Bilirubin.direct [Mass/Vol] 0.09 mg/dL 0.00-0.30 [facility] Bilirubin, totalOrdered By: Yesika Faust on 05-22-2025 Bilirubin [Mass/Vol] 0.21 mg/dL 0.00-1.30 [facility] Carbon dioxide, total [Moles /volume] in Central venous bloodOrdered By: Yesika Faust on 05-22-2025 CO2 [Moles/Vol] 27.6 mmol/L 21.0-32.0 [facility] Chloride assayOrdered By: Tad Faust on 05-22-2025 Chloride [Moles/Vol] 104 mmol/L 98-108 [facility] Eosinophil percentageOrdered By: Yesika Faust on 05-22-2025 Eosinophils/100 WBC (Bld) 6.5 % High 0-5 [facility] Erythrocyte distribution wid th ratioOrdered By: ky Faust on 05-22-2025 Erythrocyte distribution width (RBC) [Ratio] 12.7 % 11.6-14.6 [facility] Erythrocyte distribution wid th standard deviationOrdered By: Yesika Faust on 05-22-2025 Erythrocyte distribution width (RBC) [Ratio] 44.8 fl High 35.1-43.9 [facility] Glomerular filtration rate ( GFR) estimation/1.73 sq m using serum, plasma, or whole bOrdered By: Yesika Faust on 05-22-2025 GFR/1.73 sq M.predicted among non-blacks MDRD (S/P/Bld) [Vol rate/Area] 88 mL/min/{1.73_m2} >60 [facility] Comment on above: mL/min/1.73m2 CKD-EP I Creatinine Equation (2020) Hematocrit Auto (Bld) [Volum e fraction]Ordered By: Yesika Faust on 05-22-2025 Hematocrit (Bld) [Volume fraction] 41.9 % 37-47 [facility] Hemoglobin measurementOrdere d By: Yesika Faust on 05-22-2025 Hemoglobin (Bld) [Mass/Vol] 13.9 g/dL 12.0-15.0 [facility] Immature granulocytes/100 WB C Auto (Bld)Ordered By: Yesika Faust on 05-22-2025 Immature granulocytes/100 WBC (Bld) 0.300 % 0.0-0.9 [facility] Comment on above: IG% - Immature Granu locytes (promyelocytes, myelocytes and metamyelocytes) > 1% indicates that a LEFT SHIFT is Present. Laboratory - Chemistry and C hemistry - challengeOrdered By: Yesika Faust on 05-22-2025 AST [Catalytic activity/Vol] 17 U/L <32 [facility] MCV (mean corpuscular volume ) determinationOrdered By: ky Faust on 05-22-2025 MCV (RBC) [Entitic vol] 95.0 fL 81-99 [facility] Mean corpuscular hemoglobin (MCH) determinationOrdered By: ky Faust on 05-22-2025 MCH (RBC) [Entitic mass] 31.5 pg 27.0-32.0 [facility] Mean corpuscular hemoglobin concentration (MCHC) determinationOrdered By: Yesika Faust on 05-22-2025 MCHC (RBC) [Mass/Vol] 33.2 g/dL 32-36 [facility] Mean platelet volume determi nationOrdered By: Yesika Faust on 05-22-2025 Platelet mean volume (Bld) [Entitic vol] 10.5 fL 6.2-12.0 [facility] Monocyte percentageOrdered B y: Yesika Faust on 05-22-2025 Monocytes/100 WBC (Bld) 12.3 % High 0-10 [facility] Neutrophil percentageOrdered By: Yesika Faust on 05-22-2025 Neutrophils/100 WBC (Bld) 47.7 % 47-70 [facility] Nucleated red blood cell per centageOrdered By: ky Faust on 05-22-2025 Nucleated RBC/100 WBC (Bld) [Ratio] 0 % 0-5 [facility] Platelet countOrdered By: Tad Faust on 05-22-2025 Platelets (Bld) [#/Vol] 312 10*3/uL 150-450 [facility] Potassium measurement (mass/ volume)Ordered By: Yesika Faust on 05-22-2025 Potassium (Unsp spec) [Mass/Vol] 3.9 mmol/L 3.3-5.1 [facility] RBC Auto (Bld) [#/Vol]Ordere d By: Yesika Faust on 05-22-2025 RBC (Bld) [#/Vol] 4.41 10*6/uL 4.2-5.4 [facility] Serum creatinine measurement (mass/volume)Ordered By: Yesika Faust on 05-22-2025 Creatinine [Mass/Vol] 0.59 mg/dL Low 0.70-1.20 [facility] Serum globulin measurementOr dered By: Yesika Faust 05-22-2025 Globulin (S) [Mass/Vol] 2.8 g/dL 2.2-4.2 [facility] Serum glucose measurement (m ass/volume)Ordered By: Yesika Faust on 05-22-2025 Glucose [Mass/Vol] 89 mg/dL 70-99 [facility] Serum or plasma alanine vela otransferase (ALT) measurementOrdered By: Yesika Faust 05-22-2025 ALT [Catalytic activity/Vol] 8 U/L <35 [facility] Serum or plasma albumin madi urement (mass/volume)Ordered By: Yesika Faust 05-22-2025 Albumin [Mass/Vol] 3.8 g/dL 3.4-4.8 [facility] Serum or plasma alkaline mariaelena sphatase measurementOrdered By: Yesika Faust 05-22-2025 ALP [Catalytic activity/Vol] 204 U/L High 35-104 [facility] Serum or plasma calcium madi urement (mass/volume)Ordered By: Yesika Faust 05-22-2025 Calcium [Mass/Vol] 9.6 mg/dL 7.6-11.0 [facility] Serum or plasma urea nitroge n measurement (mass/volume)Ordered By: Yesika Faust 05-22-2025 Urea nitrogen [Mass/Vol] 19 mg/dL 4-19 [facility] Sodium levelOrdered By: Jed Faust on 05-22-2025 Sodium [Moles/Vol] 142 mmol/L 133-145 [facility] Total proteinOrdered By: Randall Faust on 05-22-2025 Protein [Mass/Vol] 6.6 g/dL 5.9-8.4 [facility] White blood cell (WBC) count Ordered By: Yesika Faust on 05-22-2025 WBC (Bld) [#/Vol] 6.2 10*3/uL 4.4-11.0 [facility] Absolute lymphocyte countOrd ered By: Yesika Faust on 05-16-2025 Lymphocytes Auto (Unsp spec) [#/Vol] 1.39 10*3/uL 0.83-4.51 [facility] Absolute neutrophil countOrd ered By: Yesika Faust on 05-16-2025 Neutrophils (Bld) [#/Vol] 9.3 10*3/uL High 2.0-7.7 [facility] Anion gap in Serum or Plasma Ordered By: Yesika Faust on 05-16-2025 Anion gap [Moles/Vol] 12 mmol/L 5-15 [facility] Automated lymphocyte count a s percentage of total leukocytesOrdered By: Yesika Faust on 05-16-2025 Lymphocytes/100 WBC Auto (Unsp spec) 11.7 % Low 19-41 [facility] BUN/creatinine ratioOrdered By: Yesika Faust on 05-16-2025 Urea nitrogen/Creatinine [Mass ratio] 24.6 mg/mg High 10-20 [facility] Basophil percentageOrdered B y: Yesika Faust on 05-16-2025 Basophils/100 WBC (Bld) 0.5 % 0-1 [facility] Carbon dioxide, total [Moles /volume] in Central venous bloodOrdered By: Yesika Faust on 05-16-2025 CO2 [Moles/Vol] 20.3 mmol/L Low 21.0-32.0 [facility] Chloride assayOrdered By: Tad Faust on 05-16-2025 Chloride [Moles/Vol] 103 mmol/L 98-108 [facility] Eosinophil percentageOrdered By: Yesika Faust on 05-16-2025 Eosinophils/100 WBC (Bld) 0.6 % 0-5 [facility] Erythrocyte distribution wid th ratioOrdered By: Yeskia Faust on 05-16-2025 Erythrocyte distribution width (RBC) [Ratio] 13.1 % 11.6-14.6 [facility] Erythrocyte distribution wid th standard deviationOrdered By: Yesika Faust on 05-16-2025 Erythrocyte distribution width (RBC) [Ratio] 46.6 fl High 35.1-43.9 [facility] Glomerular filtration rate ( GFR) estimation/1.73 sq m using serum, plasma, or whole bOrdered By: Yesika Faust on 05-16-2025 GFR/1.73 sq M.predicted among non-blacks MDRD (S/P/Bld) [Vol rate/Area] 86 mL/min/{1.73_m2} >60 [facility] Comment on above: mL/min/1.73m2 CKD-EP I Creatinine Equation (2020) Hematocrit Auto (Bld) [Volum e fraction]Ordered By: [facility] on 05-16-2025 Hematocrit (Bld) [Volume fraction] 41.8 % 37-47 [facility] Hemoglobin measurementOrdere d By: Yesika Faust on 05-16-2025 Hemoglobin (Bld) [Mass/Vol] 13.5 g/dL 12.0-15.0 [facility] Immature granulocytes/100 WB C Auto (Bld)Ordered By: Yesika Faust on 05-16-2025 Immature granulocytes/100 WBC (Bld) 0.500 % 0.0-0.9 [facility] Comment on above: IG% - Immature Granu locytes (promyelocytes, myelocytes and metamyelocytes) > 1% indicates that a LEFT SHIFT is Present. MCV (mean corpuscular volume ) determinationOrdered By: Yesika Faust on 05-16-2025 MCV (RBC) [Entitic vol] 98.4 fL 81-99 [facility] Mean corpuscular hemoglobin (MCH) determinationOrdered By: Yesika Faust on 05-16-2025 MCH (RBC) [Entitic mass] 31.8 pg 27.0-32.0 [facility] Mean corpuscular hemoglobin concentration (MCHC) determinationOrdered By: Yesika Faust on 05-16-2025 MCHC (RBC) [Mass/Vol] 32.3 g/dL 32-36 [facility] Mean platelet volume determi nationOrdered By: Yesika Faust on 05-16-2025 Platelet mean volume (Bld) [Entitic vol] 11.1 fL 6.2-12.0 [facility] Monocyte percentageOrdered B y: eYsika Faust on 05-16-2025 Monocytes/100 WBC (Bld) 8.3 % 0-10 [facility] Neutrophil percentageOrdered By: Yesika Faust on 05-16-2025 Neutrophils/100 WBC (Bld) 78.4 % High 47-70 [facility] Nucleated red blood cell per centageOrdered By: Yesika Faust on 05-16-2025 Nucleated RBC/100 WBC (Bld) [Ratio] 0 % 0-5 [facility] Platelet countOrdered By: Tad Faust on 05-16-2025 Platelets (Bld) [#/Vol] 218 10*3/uL 150-450 [facility] Potassium measurement (mass/ volume)Ordered By: Yesika Faust on 05-16-2025 Potassium (Unsp spec) [Mass/Vol] 5.2 mmol/L High 3.3-5.1 [facility] Comment on above: Hemolysis present, R esults could be affected. RBC Auto (Bld) [#/Vol]Ordere d By: Yesika Faust on 05-16-2025 RBC (Bld) [#/Vol] 4.25 10*6/uL 4.2-5.4 [facility] Serum creatinine measurement (mass/volume)Ordered By: Yesika Faust on 05-16-2025 Creatinine [Mass/Vol] 0.64 mg/dL Low 0.70-1.20 [facility] Serum glucose measurement (m ass/volume)Ordered By: Yesika Faust on 05-16-2025 Glucose [Mass/Vol] 86 mg/dL 70-99 [facility] Serum or plasma calcium madi urement (mass/volume)Ordered By: Tadenriquetasaeidmacarena Butterfieldkathierafaela on 05-16-2025 Calcium [Mass/Vol] 9.4 mg/dL 7.6-11.0 [facility] Serum or plasma urea nitroge n measurement (mass/volume)Ordered By: Yesika Faust on 05-16-2025 Urea nitrogen [Mass/Vol] 16 mg/dL 4-19 [facility] Sodium levelOrdered By: Tad denae Scoutkathierafaela on 05-16-2025 Sodium [Moles/Vol] 135 mmol/L 133-145 [facility] White blood cell (WBC) count Ordered By: Yesika Faust on 05-16-2025 WBC (Bld) [#/Vol] 11.8 10*3/uL High 4.4-11.0 [facility] Absolute lymphocyte countOrd ered By: Yesika Faust on 04-14-2025 Lymphocytes Auto (Unsp spec) [#/Vol] 1.92 10*3/uL 0.83-4.51 [facility] Absolute neutrophil countOrd ered By: Tadky Faust on 04-14-2025 Neutrophils (Bld) [#/Vol] 5.3 10*3/uL 2.0-7.7 [facility] Anion gap in Serum or Plasma Ordered By: Yesika Faust on 04-14-2025 Anion gap [Moles/Vol] 11 mmol/L 5-15 [facility] Automated lymphocyte count a s percentage of total leukocytesOrdered By: Yesika Faust on 04-14-2025 Lymphocytes/100 WBC Auto (Unsp spec) 23.1 % 19-41 [facility] BUN/creatinine ratioOrdered By: Tadyk Faust on 04-14-2025 Urea nitrogen/Creatinine [Mass ratio] 34.0 mg/mg High 10-20 [facility] Basophil percentageOrdered B y: Yesika Faust on 04-14-2025 Basophils/100 WBC (Bld) 0.6 % 0-1 [facility] Bilirubin directOrdered By: Yesika Faust on 04-14-2025 Bilirubin.direct [Mass/Vol] 0.09 mg/dL 0.00-0.30 [facility] Bilirubin, totalOrdered By: Yesika Faust on 04-14-2025 Bilirubin [Mass/Vol] 0.23 mg/dL 0.00-1.30 [facility] Carbon dioxide, total [Moles /volume] in Central venous bloodOrdered By: Yesika Faust on 04-14-2025 CO2 [Moles/Vol] 27.5 mmol/L 21.0-32.0 [facility] Chloride assayOrdered By: Tad Faust on 04-14-2025 Chloride [Moles/Vol] 100 mmol/L 98-108 [facility] Eosinophil percentageOrdered By: Yesika Faust 04-14-2025 Eosinophils/100 WBC (Bld) 3.1 % 0-5 [facility] Erythrocyte distribution wid th ratioOrdered By: Yesika Faust on 04-14-2025 Erythrocyte distribution width (RBC) [Ratio] 13.0 % 11.6-14.6 [facility] Erythrocyte distribution wid th standard deviationOrdered By: Yesika Faust on 04-14-2025 Erythrocyte distribution width (RBC) [Ratio] 46.0 fl High 35.1-43.9 [facility] Glomerular filtration rate ( GFR) estimation/1.73 sq m using serum, plasma, or whole bOrdered By: Yesika Faust on 04-14-2025 GFR/1.73 sq M.predicted among non-blacks MDRD (S/P/Bld) [Vol rate/Area] 87 mL/min/{1.73_m2} >60 [facility] Comment on above: mL/min/1.73m2 CKD-EP I Creatinine Equation (2020) Hematocrit Auto (Bld) [Volum e fraction]Ordered By: Yesika Faust on 04-14-2025 Hematocrit (Bld) [Volume fraction] 44.9 % 37-47 [facility] Hemoglobin measurementOrdere d By: Yesika Faust 04-14-2025 Hemoglobin (Bld) [Mass/Vol] 14.4 g/dL 12.0-15.0 [facility] Immature granulocytes/100 WB C Auto (Bld)Ordered By: Yesika Faust on 04-14-2025 Immature granulocytes/100 WBC (Bld) 0.600 % 0.0-0.9 [facility] Comment on above: IG% - Immature Granu locytes (promyelocytes, myelocytes and metamyelocytes) > 1% indicates that a LEFT SHIFT is Present. Laboratory - Chemistry and C hemistry - challengeOrdered By: Yesika Faust on 04-14-2025 AST [Catalytic activity/Vol] 19 U/L <32 [facility] MCV (mean corpuscular volume ) determinationOrdered By: Yesika Faust on 04-14-2025 MCV (RBC) [Entitic vol] 96.8 fL 81-99 [facility] Mean corpuscular hemoglobin (MCH) determinationOrdered By: Yesika Faust on 04-14-2025 MCH (RBC) [Entitic mass] 31.0 pg 27.0-32.0 [facility] Mean corpuscular hemoglobin concentration (MCHC) determinationOrdered By: Yesika Faust on 04-14-2025 MCHC (RBC) [Mass/Vol] 32.1 g/dL 32-36 [facility] Mean platelet volume determi nationOrdered By: Yesika Faust on 04-14-2025 Platelet mean volume (Bld) [Entitic vol] 10.5 fL 6.2-12.0 [facility] Monocyte percentageOrdered B y: Yesika Faust on 04-14-2025 Monocytes/100 WBC (Bld) 9.3 % 0-10 [facility] Neutrophil percentageOrdered By: Yesika Faust on 04-14-2025 Neutrophils/100 WBC (Bld) 63.3 % 47-70 [facility] Nucleated red blood cell per centageOrdered By: Yesika Faust on 04-14-2025 Nucleated RBC/100 WBC (Bld) [Ratio] 0 % 0-5 [facility] Platelet countOrdered By: Tad Faust on 04-14-2025 Platelets (Bld) [#/Vol] 263 10*3/uL 150-450 [facility] Potassium measurement (mass/ volume)Ordered By: Yesika Faust on 04-14-2025 Potassium (Unsp spec) [Mass/Vol] 4.2 mmol/L 3.3-5.1 [facility] RBC Auto (Bld) [#/Vol]Ordere d By: Yesika Faust on 04-14-2025 RBC (Bld) [#/Vol] 4.64 10*6/uL 4.2-5.4 [facility] Serum creatinine measurement (mass/volume)Ordered By: Yesika Faust on 04-14-2025 Creatinine [Mass/Vol] 0.62 mg/dL Low 0.70-1.20 [facility] Serum globulin measurementOr dered By: Yesika Faust on 04-14-2025 Globulin (S) [Mass/Vol] 2.9 g/dL 2.2-4.2 [facility] Serum glucose measurement (m ass/volume)Ordered By: Yesika Faust on 04-14-2025 Glucose [Mass/Vol] 114 mg/dL High 70-99 [facility] Serum or plasma alanine vela otransferase (ALT) measurementOrdered By: Yesika Faust on 04-14-2025 ALT [Catalytic activity/Vol] 19 U/L <35 [facility] Serum or plasma albumin madi urement (mass/volume)Ordered By: Yesika Faust on 04-14-2025 Albumin [Mass/Vol] 4.2 g/dL 3.4-4.8 [facility] Serum or plasma alkaline mariaelena sphatase measurementOrdered By: Yesika Faust on 04-14-2025 ALP [Catalytic activity/Vol] 135 U/L High 35-104 [facility] Serum or plasma calcium madi urement (mass/volume)Ordered By: Yesika Faust on 04-14-2025 Calcium [Mass/Vol] 9.7 mg/dL 7.6-11.0 [facility] Serum or plasma urea nitroge n measurement (mass/volume)Ordered By: Yesika Faust on 04-14-2025 Urea nitrogen [Mass/Vol] 21 mg/dL High 4-19 [facility] Sodium levelOrdered By: Jed Faust on 04-14-2025 Sodium [Moles/Vol] 139 mmol/L 133-145 [facility] Total proteinOrdered By: Randall Faust on 04-14-2025 Protein [Mass/Vol] 7.1 g/dL 5.9-8.4 [facility] White blood cell (WBC) count Ordered By: Yesika Faust on 04-14-2025 WBC (Bld) [#/Vol] 8.3 10*3/uL 4.4-11.0 [facility] Absolute lymphocyte countOrd ered By: Yesika Faust on 03-14-2025 Lymphocytes Auto (Unsp spec) [#/Vol] 2.03 10*3/uL 0.83-4.51 [facility] Absolute neutrophil countOrd ered By: Yesika Faust on 03-14-2025 Neutrophils (Bld) [#/Vol] 3.4 10*3/uL 2.0-7.7 [facility] Anion gap in Serum or Plasma Ordered By: Yesika Faust on 03-14-2025 Anion gap [Moles/Vol] 9 mmol/L 5-15 [facility] Automated lymphocyte count a s percentage of total leukocytesOrdered By: Yesika Faust on 03-14-2025 Lymphocytes/100 WBC Auto (Unsp spec) 31.4 % 19-41 [facility] BUN/creatinine ratioOrdered By: Yesika Faust on 03-14-2025 Urea nitrogen/Creatinine [Mass ratio] 38.6 mg/mg High 10-20 [facility] Basophil percentageOrdered B y: Yesika Faust on 03-14-2025 Basophils/100 WBC (Bld) 0.5 % 0-1 [facility] Carbon dioxide, total [Moles /volume] in Central venous bloodOrdered By: Yesika Faust on 03-14-2025 CO2 [Moles/Vol] 28.1 mmol/L 21.0-32.0 [facility] Chloride assayOrdered By: Tad Faust on 03-14-2025 Chloride [Moles/Vol] 105 mmol/L 98-108 [facility] Eosinophil percentageOrdered By: Yesika Faust on 03-14-2025 Eosinophils/100 WBC (Bld) 5.6 % High 0-5 [facility] Erythrocyte distribution wid th ratioOrdered By: Yesika Faust on 03-14-2025 Erythrocyte distribution width (RBC) [Ratio] 12.8 % 11.6-14.6 [facility] Erythrocyte distribution wid th standard deviationOrdered By: Yesika Faust on 03-14-2025 Erythrocyte distribution width (RBC) [Ratio] 46.6 fl High 35.1-43.9 [facility] Glomerular filtration rate ( GFR) estimation/1.73 sq m using serum, plasma, or whole bOrdered By: Yesika Faust 03-14-2025 GFR/1.73 sq M.predicted among non-blacks MDRD (S/P/Bld) [Vol rate/Area] 88 mL/min/{1.73_m2} >60 [facility] Comment on above: mL/min/1.73m2 CKD-EP I Creatinine Equation (2020) Hematocrit Auto (Bld) [Volum e fraction]Ordered By: Yesika Faust on 03-14-2025 Hematocrit (Bld) [Volume fraction] 39.8 % 37-47 [facility] Hemoglobin measurementOrdere d By: Yesika Faust on 03-14-2025 Hemoglobin (Bld) [Mass/Vol] 12.8 g/dL 12.0-15.0 [facility] Immature granulocytes/100 WB C Auto (Bld)Ordered By: Yesika Faust 03-14-2025 Immature granulocytes/100 WBC (Bld) 0.600 % 0.0-0.9 [facility] Comment on above: IG% - Immature Granu locytes (promyelocytes, myelocytes and metamyelocytes) > 1% indicates that a LEFT SHIFT is Present. MCV (mean corpuscular volume ) determinationOrdered By: Yesika Faust 03-14-2025 MCV (RBC) [Entitic vol] 99.0 fL 81-99 [facility] Mean corpuscular hemoglobin (MCH) determinationOrdered By: Tadenriquetasaeidmacarena Butterfieldkathierafaela on 03-14-2025 MCH (RBC) [Entitic mass] 31.8 pg 27.0-32.0 [facility] Mean corpuscular hemoglobin concentration (MCHC) determinationOrdered By: Yesika Butterfieldkathierafaela on 03-14-2025 MCHC (RBC) [Mass/Vol] 32.2 g/dL 32-36 [facility] Mean platelet volume determi nationOrdered By: Yesika Butterfieldkathierafaela on 03-14-2025 Platelet mean volume (Bld) [Entitic vol] 10.4 fL 6.2-12.0 [facility] Monocyte percentageOrdered B y: Yesika Butterfieldkathierafaela on 03-14-2025 Monocytes/100 WBC (Bld) 10.2 % High 0-10 [facility] Neutrophil percentageOrdered By: Yesika Faust on 03-14-2025 Neutrophils/100 WBC (Bld) 51.7 % 47-70 [facility] Nucleated red blood cell per centageOrdered By: Yesika Butterfieldkathierafaela on 03-14-2025 Nucleated RBC/100 WBC (Bld) [Ratio] 0 % 0-5 [facility] Platelet countOrdered By: Tad shymacarena Butterfieldkathierafaela on 03-14-2025 Platelets (Bld) [#/Vol] 238 10*3/uL 150-450 [facility] Potassium measurement (mass/ volume)Ordered By: Yesika Faust on 03-14-2025 Potassium (Unsp spec) [Mass/Vol] 4.1 mmol/L 3.3-5.1 [facility] RBC Auto (Bld) [#/Vol]Ordere d By: Yesika Faust on 03-14-2025 RBC (Bld) [#/Vol] 4.02 10*6/uL Low 4.2-5.4 [facility] Serum creatinine measurement (mass/volume)Ordered By: Yesika Faust on 03-14-2025 Creatinine [Mass/Vol] 0.60 mg/dL Low 0.70-1.20 [facility] Serum glucose measurement (m ass/volume)Ordered By: Yesika Faust on 03-14-2025 Glucose [Mass/Vol] 82 mg/dL 70-99 [facility] Serum or plasma calcium madi urement (mass/volume)Ordered By: Yesika Faust on 03-14-2025 Calcium [Mass/Vol] 9.1 mg/dL 7.6-11.0 [facility] Serum or plasma urea nitroge n measurement (mass/volume)Ordered By: Yesika Faust on 03-14-2025 Urea nitrogen [Mass/Vol] 23 mg/dL High 4-19 [facility] Sodium levelOrdered By: Jed Faust on 03-14-2025 Sodium [Moles/Vol] 142 mmol/L 133-145 [facility] White blood cell (WBC) count Ordered By: Yesika Faust on 03-14-2025 WBC (Bld) [#/Vol] 6.5 10*3/uL 4.4-11.0 [facility] Bilirubin Test strip Ql (U)O rdered By: Yesika Faust on 03-06-2025 Bilirubin Ql (U) Negative Negative [facility] Ketones Test strip Ql (U)Ord ered By: Yesika Faust on 03-06-2025 Ketones Ql (U) 5 mg/dl High Negative [facility] Nitrite Test strip Ql (U)Ord ered By: Yesika Faust on 03-06-2025 Nitrite Ql (U) Negative Negative [facility] Protein Test strip Ql (U)Ord ered By: Yesika Faust on 03-06-2025 Protein Ql (U) 100 mg/dl High Negative [facility] Urine clarityOrdered By: Randall Faust on 03-06-2025 Clarity (U) Turbid Clear [facility] Urine color determinationOrd ered By: Yesika Faust on 03-06-2025 Color (U) Yellow Yellow [facility] Urine cultureOrdered By: Randall Faust on 03-06-2025 Bacteria identified Cx Nom (U) Proteus mirabilis Abnormal [facility] Urine glucose detectionOrder ed By: Yesika Faust on 03-06-2025 Glucose Ql (U) Normal mg/dl Normal [facility] Urine leukocyte esterase det ection by dipstickOrdered By: Yesika Faust on 03-06-2025 Leukocyte esterase Test strip Ql (U) 500 /ul High Negative [facility] Urine pHOrdered By: Fernando Faust on 03-06-2025 pH (U) 6.0 [pH] 5.0 - 8.0 [facility] Urine specific gravity measu rementOrdered By: Yesika Faust on 03-06-2025 Specific gravity (U) [Rel density] 1.020 1.002-1.03 0 [facility] Urine urobilinogen measureme ntOrdered By: Yesika Faust on 03-06-2025 Urobilinogen Ql (U) Normal mg/dl Normal [facility] Serum or plasma valproate me asurement (mass/volume)Ordered By: Yesika Faust on 02-27-2025 Valproate [Mass/Vol] 15 ug/mL Low 50-100 [facility] Comment on above: Valproic Acid concen trations >100 ug/mL are potentially toxic. Absolute lymphocyte countOrd ered By: Yesika Faust on 02-13-2025 Lymphocytes Auto (Unsp spec) [#/Vol] 1.82 10*3/uL 0.83-4.51 [facility] Absolute neutrophil countOrd ered By: Yesika Faust on 02-13-2025 Neutrophils (Bld) [#/Vol] 3.5 10*3/uL 2.0-7.7 [facility] Anion gap in Serum or Plasma Ordered By: Yesika Faust on 02-13-2025 Anion gap [Moles/Vol] 10 mmol/L 5-15 [facility] Automated lymphocyte count a s percentage of total leukocytesOrdered By: Yesika Faust on 02-13-2025 Lymphocytes/100 WBC Auto (Unsp spec) 29.1 % 19-41 [facility] BUN/creatinine ratioOrdered By: Yesika Faust on 02-13-2025 Urea nitrogen/Creatinine [Mass ratio] 32.3 mg/mg High 10-20 [facility] Basophil percentageOrdered B y: Yesika Faust on 02-13-2025 Basophils/100 WBC (Bld) 0.6 % 0-1 [facility] Carbon dioxide, total [Moles /volume] in Central venous bloodOrdered By: Yesika Faust on 02-13-2025 CO2 [Moles/Vol] 28.1 mmol/L 21.0-32.0 [facility] Chloride assayOrdered By: Tad Faust on 02-13-2025 Chloride [Moles/Vol] 101 mmol/L 98-108 [facility] Eosinophil percentageOrdered By: Yesika Faust on 02-13-2025 Eosinophils/100 WBC (Bld) 3.7 % 0-5 [facility] Erythrocyte distribution wid th ratioOrdered By: Yesika Faust on 02-13-2025 Erythrocyte distribution width (RBC) [Ratio] 12.9 % 11.6-14.6 [facility] Erythrocyte distribution wid th standard deviationOrdered By: ky Faust on 02-13-2025 Erythrocyte distribution width (RBC) [Ratio] 46.5 fl High 35.1-43.9 [facility] Glomerular filtration rate ( GFR) estimation/1.73 sq m using serum, plasma, or whole bOrdered By: Yesika Faust on 02-13-2025 GFR/1.73 sq M.predicted among non-blacks MDRD (S/P/Bld) [Vol rate/Area] 87 mL/min/{1.73_m2} >60 [facility] Comment on above: mL/min/1.73m2 CKD-EP I Creatinine Equation (2020) Hematocrit Auto (Bld) [Volum e fraction]Ordered By: Yesika Faust on 02-13-2025 Hematocrit (Bld) [Volume fraction] 43.2 % 37-47 [facility] Hemoglobin measurementOrdere d By: Yesika Faust on 02-13-2025 Hemoglobin (Bld) [Mass/Vol] 13.9 g/dL 12.0-15.0 [facility] Immature granulocytes/100 WB C Auto (Bld)Ordered By: Yesika Faust on 02-13-2025 Immature granulocytes/100 WBC (Bld) 0.300 % 0.0-0.9 [facility] Comment on above: IG% - Immature Granu locytes (promyelocytes, myelocytes and metamyelocytes) > 1% indicates that a LEFT SHIFT is Present. MCV (mean corpuscular volume ) determinationOrdered By: Yesika Faust on 02-13-2025 MCV (RBC) [Entitic vol] 97.7 fL 81-99 [facility] Mean corpuscular hemoglobin (MCH) determinationOrdered By: Yesika Faust on 02-13-2025 MCH (RBC) [Entitic mass] 31.4 pg 27.0-32.0 [facility] Mean corpuscular hemoglobin concentration (MCHC) determinationOrdered By: Jedkeomacarena Faust on 02-13-2025 MCHC (RBC) [Mass/Vol] 32.2 g/dL 32-36 [facility] Mean platelet volume determi nationOrdered By: Yesika Faust on 02-13-2025 Platelet mean volume (Bld) [Entitic vol] 10.3 fL 6.2-12.0 [facility] Monocyte percentageOrdered B y: Yesika Faust on 02-13-2025 Monocytes/100 WBC (Bld) 10.7 % High 0-10 [facility] Neutrophil percentageOrdered By: Yesika Faust on 02-13-2025 Neutrophils/100 WBC (Bld) 55.6 % 47-70 [facility] Nucleated red blood cell per centageOrdered By: Yesika Faust on 02-13-2025 Nucleated RBC/100 WBC (Bld) [Ratio] 0 % 0-5 [facility] Platelet countOrdered By: Tad Faust on 02-13-2025 Platelets (Bld) [#/Vol] 231 10*3/uL 150-450 [facility] Potassium measurement (mass/ volume)Ordered By: Yesika Faust on 02-13-2025 Potassium (Unsp spec) [Mass/Vol] 4.0 mmol/L 3.3-5.1 [facility] RBC Auto (Bld) [#/Vol]Ordere d By: Yesika Faust on 02-13-2025 RBC (Bld) [#/Vol] 4.42 10*6/uL 4.2-5.4 [facility] Serum creatinine measurement (mass/volume)Ordered By: Yesika Faust on 02-13-2025 Creatinine [Mass/Vol] 0.62 mg/dL Low 0.70-1.20 [facility] Serum glucose measurement (m ass/volume)Ordered By: Yesika Faust on 02-13-2025 Glucose [Mass/Vol] 88 mg/dL 70-99 [facility] Serum or plasma calcium madi urement (mass/volume)Ordered By: Yesika Faust on 02-13-2025 Calcium [Mass/Vol] 9.3 mg/dL 7.6-11.0 [facility] Serum or plasma urea nitroge n measurement (mass/volume)Ordered By: Yesika Faust on 02-13-2025 Urea nitrogen [Mass/Vol] 20 mg/dL High 4-19 [facility] Sodium levelOrdered By: Jed jiangbert Christianne on 02-13-2025 Sodium [Moles/Vol] 140 mmol/L 133-145 [facility] White blood cell (WBC) count Ordered By: Yesika Faust on 02-13-2025 WBC (Bld) [#/Vol] 6.3 10*3/uL 4.4-11.0 [facility] Potassium measurement (mass/ volume)Ordered By: Zeina Balbuena on 01-23-2025 Potassium (Unsp spec) [Mass/Vol] 3.8 mmol/L 3.3-5.1 [facility] Absolute lymphocyte countOrd ered By: Yesika Faust on 01-18-2025 Lymphocytes Auto (Unsp spec) [#/Vol] 1.51 10*3/uL 0.83-4.51 [facility] Absolute neutrophil countOrd ered By: Yesika Faust on 01-18-2025 Neutrophils (Bld) [#/Vol] 3.9 10*3/uL 2.0-7.7 [facility] Anion gap in Serum or Plasma Ordered By: Yesika Faust on 01-18-2025 Anion gap [Moles/Vol] 12 mmol/L 5-15 [facility] Automated lymphocyte count a s percentage of total leukocytesOrdered By: Yesika Faust on 01-18-2025 Lymphocytes/100 WBC Auto (Unsp spec) 23.4 % 19-41 [facility] BUN/creatinine ratioOrdered By: Yesika Faust on 01-18-2025 Urea nitrogen/Creatinine [Mass ratio] 36.2 mg/mg High 10-20 [facility] Basophil percentageOrdered B y: Yesika Faust on 01-18-2025 Basophils/100 WBC (Bld) 0.6 % 0-1 [facility] Bilirubin directOrdered By: Yesika Faust on 01-18-2025 Bilirubin.direct [Mass/Vol] 0.11 mg/dL 0.00-0.30 [facility] Bilirubin, totalOrdered By: Yesika Faust on 01-18-2025 Bilirubin [Mass/Vol] 0.25 mg/dL 0.00-1.30 [facility] Carbon dioxide, total [Moles /volume] in Central venous bloodOrdered By: Yesika Faust on 01-18-2025 CO2 [Moles/Vol] 22.7 mmol/L 21.0-32.0 [facility] Chloride assayOrdered By: Tad Faust on 01-18-2025 Chloride [Moles/Vol] 107 mmol/L 98-108 [facility] Eosinophil percentageOrdered By: Yesika Faust on 01-18-2025 Eosinophils/100 WBC (Bld) 6.1 % High 0-5 [facility] Erythrocyte distribution wid th ratioOrdered By: Yesika Faust on 01-18-2025 Erythrocyte distribution width (RBC) [Ratio] 13.4 % 11.6-14.6 [facility] Erythrocyte distribution wid th standard deviationOrdered By: Yesika Faust on 01-18-2025 Erythrocyte distribution width (RBC) [Ratio] 46.6 fl High 35.1-43.9 [facility] Glomerular filtration rate ( GFR) estimation/1.73 sq m using serum, plasma, or whole bOrdered By: Yesika Faust on 01-18-2025 GFR/1.73 sq M.predicted among non-blacks MDRD (S/P/Bld) [Vol rate/Area] 80 mL/min/{1.73_m2} >60 [facility] Comment on above: mL/min/1.73m2 CKD-EP I Creatinine Equation (2020) Hematocrit Auto (Bld) [Volum e fraction]Ordered By: [facility] on 01-18-2025 Hematocrit (Bld) [Volume fraction] 42.1 % 37-47 [facility] Hemoglobin measurementOrdere d By: Yesika Faust on 01-18-2025 Hemoglobin (Bld) [Mass/Vol] 14.2 g/dL 12.0-15.0 [facility] Immature granulocytes/100 WB C Auto (Bld)Ordered By: Yesika Faust on 01-18-2025 Immature granulocytes/100 WBC (Bld) 0.500 % 0.0-0.9 [facility] Comment on above: IG% - Immature Granu locytes (promyelocytes, myelocytes and metamyelocytes) > 1% indicates that a LEFT SHIFT is Present. Laboratory - Chemistry and C hemistry - challengeOrdered By: Yesika Faust on 01-18-2025 AST [Catalytic activity/Vol] 19 U/L <32 [facility] MCV (mean corpuscular volume ) determinationOrdered By: Yesika Faust 01-18-2025 MCV (RBC) [Entitic vol] 94.4 fL 81-99 [facility] Mean corpuscular hemoglobin (MCH) determinationOrdered By: enriquetakeomacarena Faust 01-18-2025 MCH (RBC) [Entitic mass] 31.8 pg 27.0-32.0 [facility] Mean corpuscular hemoglobin concentration (MCHC) determinationOrdered By: enriquetakeomacarena Faust 01-18-2025 MCHC (RBC) [Mass/Vol] 33.7 g/dL 32-36 [facility] Mean platelet volume determi nationOrdered By: Yesika Faust on 01-18-2025 Platelet mean volume (Bld) [Entitic vol] 11.6 fL 6.2-12.0 [facility] Monocyte percentageOrdered B y: Yesika Faust on 01-18-2025 Monocytes/100 WBC (Bld) 9.3 % 0-10 [facility] Neutrophil percentageOrdered By: Yesika Faust on 01-18-2025 Neutrophils/100 WBC (Bld) 60.1 % 47-70 [facility] Nucleated red blood cell per centageOrdered By: Yesika Faust on 01-18-2025 Nucleated RBC/100 WBC (Bld) [Ratio] 0 % 0-5 [facility] Platelet countOrdered By: Tad Faust on 01-18-2025 Platelet count TNP [facility] Comment on above: Test not performedPl [...] [facility] Potassium measurement (mass/ volume)Ordered By: Yeiska Faust on 01-18-2025 Potassium (Unsp spec) [Mass/Vol] 5.6 mmol/L High 3.3-5.1 [facility] RBC Auto (Bld) [#/Vol]Ordere d By: Yesika Faust on 01-18-2025 RBC (Bld) [#/Vol] 4.46 10*6/uL 4.2-5.4 [facility] Serum creatinine measurement (mass/volume)Ordered By: Yesika Faust on 01-18-2025 Creatinine [Mass/Vol] 0.73 mg/dL 0.70-1.20 [facility] Serum globulin measurementOr dered By: Yesika Faust on 01-18-2025 Globulin (S) [Mass/Vol] 2.5 g/dL 2.2-4.2 [facility] Serum glucose measurement (m ass/volume)Ordered By: Yesika Faust on 01-18-2025 Glucose [Mass/Vol] 84 mg/dL 70-99 [facility] Serum or plasma alanine vela otransferase (ALT) measurementOrdered By: Yesika Faust on 01-18-2025 ALT [Catalytic activity/Vol] 14 U/L <35 [facility] Serum or plasma albumin madi urement (mass/volume)Ordered By: Yesika Faust on 01-18-2025 Albumin [Mass/Vol] 3.7 g/dL 3.4-4.8 [facility] Serum or plasma alkaline mariaelena sphatase measurementOrdered By: Yeskia Faust on 01-18-2025 ALP [Catalytic activity/Vol] 106 U/L High 35-104 [facility] Serum or plasma calcium madi urement (mass/volume)Ordered By: Yesika Faust on 01-18-2025 Calcium [Mass/Vol] 9.1 mg/dL 7.6-11.0 [facility] Serum or plasma urea nitroge n measurement (mass/volume)Ordered By: Yesika Faust on 01-18-2025 Urea nitrogen [Mass/Vol] 27 mg/dL High 4-19 [facility] Sodium levelOrdered By: Jed Faust on 01-18-2025 Sodium [Moles/Vol] 141 mmol/L 133-145 [facility] Total proteinOrdered By: Randall Faust on 01-18-2025 Protein [Mass/Vol] 6.1 g/dL 5.9-8.4 [facility] White blood cell (WBC) count Ordered By: Yesika Faust on 01-18-2025 WBC (Bld) [#/Vol] 6.4 10*3/uL 4.4-11.0 [facility] Bilirubin Test strip Ql (U)O rdered By: Yesika Faust on 01-14-2025 Bilirubin Ql (U) Negative Negative [facility] Ketones Test strip Ql (U)Ord ered By: Yesika Faust on 01-14-2025 Ketones Ql (U) Negative Negative [facility] Nitrite Test strip Ql (U)Ord ered By: Yesika Faust on 01-14-2025 Nitrite Ql (U) Negative Negative [facility] Protein Test strip Ql (U)Ord ered By: Yesika Faust on 01-14-2025 Protein Ql (U) 30 mg/dl High Negative [facility] Urine clarityOrdered By: Randall Faust on 01-14-2025 Clarity (U) Cloudy Clear [facility] Urine color determinationOrd ered By: Yesika Faust on 01-14-2025 Color (U) Yellow Yellow [facility] Urine cultureOrdered By: Randall aFust on 01-14-2025 Bacteria identified Cx Nom (U) Proteus mirabilis Abnormal [facility] Urine glucose detectionOrder ed By: Yesika Faust on 01-14-2025 Glucose Ql (U) Normal mg/dl Normal [facility] Urine leukocyte esterase det ection by dipstickOrdered By: Yesika Faust on 01-14-2025 Leukocyte esterase Test strip Ql (U) 500 /ul High Negative [facility] Urine pHOrdered By: Fernando Faust on 01-14-2025 pH (U) 7.0 [pH] 5.0 - 8.0 [facility] Urine specific gravity measu rementOrdered By: Yesika Faust on 01-14-2025 Specific gravity (U) [Rel density] 1.010 1.002-1.03 0 [facility] Urine urobilinogen measureme ntOrdered By: Yesika Faust on 01-14-2025 Urobilinogen Ql (U) Normal mg/dl Normal [facility] Absolute lymphocyte countOrd ered By: Yesika Faust on 01-12-2025 Lymphocytes Auto (Unsp spec) [#/Vol] 1.66 10*3/uL 0.83-4.51 [facility] Absolute neutrophil countOrd ered By: Yesika Faust on 01-12-2025 Neutrophils (Bld) [#/Vol] 3.2 10*3/uL 2.0-7.7 [facility] Anion gap in Serum or Plasma Ordered By: Yesika Faust on 01-12-2025 Anion gap [Moles/Vol] 13 mmol/L 5-15 [facility] Automated lymphocyte count a s percentage of total leukocytesOrdered By: Yesika Faust on 01-12-2025 Lymphocytes/100 WBC Auto (Unsp spec) 27.6 % 19-41 [facility] BUN/creatinine ratioOrdered By: Yesika Faust on 01-12-2025 Urea nitrogen/Creatinine [Mass ratio] 36.9 mg/mg High 10-20 [facility] Basophil percentageOrdered B y: Yesika Faust on 01-12-2025 Basophils/100 WBC (Bld) 0.8 % 0-1 [facility] Bilirubin directOrdered By: Yesika Faust on 01-12-2025 Bilirubin.direct [Mass/Vol] 0.11 mg/dL 0.00-0.30 [facility] Bilirubin, totalOrdered By: Yesika Faust on 01-12-2025 Bilirubin [Mass/Vol] 0.24 mg/dL 0.00-1.30 [facility] Carbon dioxide, total [Moles /volume] in Central venous bloodOrdered By: Yesika Fauts on 01-12-2025 CO2 [Moles/Vol] 22.3 mmol/L 21.0-32.0 [facility] Chloride assayOrdered By: Tad Faust on 01-12-2025 Chloride [Moles/Vol] 106 mmol/L 98-108 [facility] Eosinophil percentageOrdered By: Yesika Faust on 01-12-2025 Eosinophils/100 WBC (Bld) 7.2 % High 0-5 [facility] Erythrocyte distribution wid th ratioOrdered By: Yesika Faust on 01-12-2025 Erythrocyte distribution width (RBC) [Ratio] 13.5 % 11.6-14.6 [facility] Erythrocyte distribution wid th standard deviationOrdered By: Yesika Faust on 01-12-2025 Erythrocyte distribution width (RBC) [Ratio] 47.9 fl High 35.1-43.9 [facility] Glomerular filtration rate ( GFR) estimation/1.73 sq m using serum, plasma, or whole bOrdered By: Yesika Faust on 01-12-2025 GFR/1.73 sq M.predicted among non-blacks MDRD (S/P/Bld) [Vol rate/Area] 84 mL/min/{1.73_m2} >60 [facility] Comment on above: mL/min/1.73m2 CKD-EP I Creatinine Equation (2020) Hematocrit Auto (Bld) [Volum e fraction]Ordered By: enriquetakeomacarena Faust on 01-12-2025 Hematocrit (Bld) [Volume fraction] 40.4 % 37-47 [facility] Hemoglobin measurementOrdere d By: Yesika Faust on 01-12-2025 Hemoglobin (Bld) [Mass/Vol] 13.3 g/dL 12.0-15.0 [facility] Immature granulocytes/100 WB C Auto (Bld)Ordered By: Yesika Faust on 01-12-2025 Immature granulocytes/100 WBC (Bld) 0.300 % 0.0-0.9 [facility] Comment on above: IG% - Immature Granu locytes (promyelocytes, myelocytes and metamyelocytes) > 1% indicates that a LEFT SHIFT is Present. Laboratory - Chemistry and C hemistry - challengeOrdered By: Yesika Faust on 01-12-2025 AST [Catalytic activity/Vol] 16 U/L <32 [facility] MCV (mean corpuscular volume ) determinationOrdered By: Yesika Faust on 01-12-2025 MCV (RBC) [Entitic vol] 97.1 fL 81-99 [facility] Mean corpuscular hemoglobin (MCH) determinationOrdered By: Yesika Faust on 01-12-2025 MCH (RBC) [Entitic mass] 32.0 pg 27.0-32.0 [facility] Mean corpuscular hemoglobin concentration (MCHC) determinationOrdered By: Yesika Faust on 01-12-2025 MCHC (RBC) [Mass/Vol] 32.9 g/dL 32-36 [facility] Mean platelet volume determi nationOrdered By: Yesika Faust on 01-12-2025 Platelet mean volume (Bld) [Entitic vol] 10.7 fL 6.2-12.0 [facility] Monocyte percentageOrdered B y: Yesika Faust on 01-12-2025 Monocytes/100 WBC (Bld) 10.8 % High 0-10 [facility] Neutrophil percentageOrdered By: Yesika Faust on 01-12-2025 Neutrophils/100 WBC (Bld) 53.3 % 47-70 [facility] Nucleated red blood cell per centageOrdered By: Yesika Faust on 01-12-2025 Nucleated RBC/100 WBC (Bld) [Ratio] 0 % 0-5 [facility] Platelet countOrdered By: Tad Faust on 01-12-2025 Platelets (Bld) [#/Vol] 233 10*3/uL 150-450 [facility] Potassium measurement (mass/ volume)Ordered By: Yesika Faust on 01-12-2025 Potassium (Unsp spec) [Mass/Vol] 4.4 mmol/L 3.3-5.1 [facility] RBC Auto (Bld) [#/Vol]Ordere d By: Yesika Faust on 01-12-2025 RBC (Bld) [#/Vol] 4.16 10*6/uL Low 4.2-5.4 [facility] Serum creatinine measurement (mass/volume)Ordered By: Yesika Faust on 01-12-2025 Creatinine [Mass/Vol] 0.71 mg/dL 0.70-1.20 [facility] Serum globulin measurementOr dered By: Yesika Faust on 01-12-2025 Globulin (S) [Mass/Vol] 2.2 g/dL 2.2-4.2 [facility] Serum glucose measurement (m ass/volume)Ordered By: Yesika Faust on 01-12-2025 Glucose [Mass/Vol] 95 mg/dL 70-99 [facility] Serum or plasma alanine vela otransferase (ALT) measurementOrdered By: Yesika Faust on 01-12-2025 ALT [Catalytic activity/Vol] 12 U/L <35 [facility] Serum or plasma albumin madi urement (mass/volume)Ordered By: Yesika Faust on 01-12-2025 Albumin [Mass/Vol] 3.5 g/dL 3.4-4.8 [facility] Serum or plasma alkaline mariaelena sphatase measurementOrdered By: Yesika Faust on 01-12-2025 ALP [Catalytic activity/Vol] 110 U/L High 35-104 [facility] Serum or plasma calcium madi urement (mass/volume)Ordered By: Yesika Faust on 01-12-2025 Calcium [Mass/Vol] 9.0 mg/dL 7.6-11.0 [facility] Serum or plasma urea nitroge n measurement (mass/volume)Ordered By: Yesika Faust on 01-12-2025 Urea nitrogen [Mass/Vol] 26 mg/dL High 4-19 [facility] Sodium levelOrdered By: Jed denae Christianne on 01-12-2025 Sodium [Moles/Vol] 142 mmol/L 133-145 [facility] Total proteinOrdered By: Randallrafaela willadrmacarena Faust on 01-12-2025 Protein [Mass/Vol] 5.7 g/dL Low 5.9-8.4 [facility] White blood cell (WBC) count Ordered By: Yesika Faust on 01-12-2025 WBC (Bld) [#/Vol] 6.0 10*3/uL 4.4-11.0 [facility] Absolute lymphocyte countOrd ered By: Yesika Faust on 12-14-2024 Lymphocytes Auto (Unsp spec) [#/Vol] 2.70 10*3/uL 0.83-4.51 [facility] Absolute neutrophil countOrd ered By: Yesika Faust on 12-14-2024 Neutrophils (Bld) [#/Vol] 4.2 10*3/uL 2.0-7.7 [facility] Anion gap in Serum or Plasma Ordered By: Yesika Faust on 12-14-2024 Anion gap [Moles/Vol] 12 mmol/L 5-15 [facility] Automated lymphocyte count a s percentage of total leukocytesOrdered By: Yesika Faust on 12-14-2024 Lymphocytes/100 WBC Auto (Unsp spec) 33.0 % 19-41 [facility] BUN/creatinine ratioOrdered By: Jedkeomacarena Faust on 12-14-2024 Urea nitrogen/Creatinine [Mass ratio] 30.0 mg/mg High 10-20 [facility] Basophil percentageOrdered B y: Yesika Faust on 12-14-2024 Basophils/100 WBC (Bld) 1.0 % 0-1 [facility] Carbon dioxide, total [Moles /volume] in Central venous bloodOrdered By: Yesika Faust on 12-14-2024 CO2 [Moles/Vol] 25.1 mmol/L 21.0-32.0 [facility] Chloride assayOrdered By: Tad Faust on 12-14-2024 Chloride [Moles/Vol] 103 mmol/L 98-108 [facility] Eosinophil percentageOrdered By: enriquetakeomacarena Faust on 12-14-2024 Eosinophils/100 WBC (Bld) 4.4 % 0-5 [facility] Erythrocyte distribution wid th (RBC) [Ratio]Ordered By: Yesika Faust on 12-14-2024 Erythrocyte distribution width (RBC) [Entitic vol] 45.8 fL High 35.1-43.9 [facility] Erythrocyte distribution wid th ratioOrdered By: Jedkeomacarena Faust on 12-14-2024 Erythrocyte distribution width (RBC) [Ratio] 13.2 % 11.6-14.6 [facility] Erythrocyte distribution wid th standard deviationOrdered By: enriquetakeomacarena Faust on 12-14-2024 Erythrocyte distribution width (RBC) [Ratio] 45.8 fl High 35.1-43.9 [facility] GFR/1.73 sq M.predicted giorgio g non-blacks MDRD (S/P/Bld) [Vol rate/Area]Ordered By: Yesika Faust on 12-14-2024 Estimated GFR (MDRD) Non-Af Amer 76 >60 [facility] Comment on above: mL/min/1.73m2 CKD-EP I Creatinine Equation (2020) Glomerular filtration rate ( GFR) estimation/1.73 sq m using serum, plasma, or whole bOrdered By: Yesika Faust on 12-14-2024 GFR/1.73 sq M.predicted among non-blacks MDRD (S/P/Bld) [Vol rate/Area] 76 mL/min/{1.73_m2} >60 [facility] Comment on above: mL/min/1.73m2 CKD-EP I Creatinine Equation (2020) Hematocrit Auto (Bld) [Volum e fraction]Ordered By: Yesika Fauts on 12-14-2024 Hematocrit (Bld) [Volume fraction] 46.6 % 37-47 [facility] Hemoglobin measurementOrdere d By: Yesika Faust on 12-14-2024 Hemoglobin (Bld) [Mass/Vol] 15.2 g/dL High 12.0-15.0 [facility] Immature granulocytes/100 WB C Auto (Bld)Ordered By: Yesika Faust on 12-14-2024 Immature granulocytes/100 WBC (Bld) 0.500 % 0.0-0.9 [facility] Comment on above: IG% - Immature Granu locytes (promyelocytes, myelocytes and metamyelocytes) > 1% indicates that a LEFT SHIFT is Present. Lymphocytes Auto (Unsp spec) [#/Vol]Ordered By: enriquetakeomacarena Faust on 12-14-2024 Lymphocytes (Bld) [#/Vol] 2.70 10*3/uL 0.83-4.51 [facility] Lymphocytes/100 WBC Auto (Un sp spec)Ordered By: ky Faust on 12-14-2024 Lymphocytes/100 WBC (Bld) 33.0 % 19-41 [facility] MCV (mean corpuscular volume ) determinationOrdered By: Yesika Faust on 12-14-2024 MCV (RBC) [Entitic vol] 94.7 fL 81-99 [facility] Mean corpuscular hemoglobin (MCH) determinationOrdered By: Yesika Faust on 12-14-2024 MCH (RBC) [Entitic mass] 30.9 pg 27.0-32.0 [facility] Mean corpuscular hemoglobin concentration (MCHC) determinationOrdered By: Yesika Faust on 12-14-2024 MCHC (RBC) [Mass/Vol] 32.6 g/dL 32-36 [facility] Mean platelet volume determi nationOrdered By: Yesika Faust on 12-14-2024 Platelet mean volume (Bld) [Entitic vol] 10.6 fL 6.2-12.0 [facility] Monocyte percentageOrdered B y: Yesika Faust on 12-14-2024 Monocytes/100 WBC (Bld) 9.7 % 0-10 [facility] Neutrophil percentageOrdered By: Yesika Faust on 12-14-2024 Neutrophils/100 WBC (Bld) 51.4 % 47-70 [facility] Nucleated red blood cell per centageOrdered By: Yesika Faust on 12-14-2024 Nucleated RBC/100 WBC (Bld) [Ratio] 0 % 0-5 [facility] Platelet countOrdered By: Tad Faust on 12-14-2024 Platelets (Bld) [#/Vol] 268 10*3/uL 150-450 [facility] Potassium (Unsp spec) [Mass/ Vol]Ordered By: Yesika Faust on 12-14-2024 Potassium [Moles/Vol] 4.3 mmol/L 3.3-5.1 [facility] Potassium measurement (mass/ volume)Ordered By: Yesika Faust on 12-14-2024 Potassium (Unsp spec) [Mass/Vol] 4.3 mmol/L 3.3-5.1 [facility] RBC Auto (Bld) [#/Vol]Ordere d By: Yesika Faust on 12-14-2024 RBC (Bld) [#/Vol] 4.92 10*6/uL 4.2-5.4 [facility] Serum creatinine measurement (mass/volume)Ordered By: Yesika Faust on 12-14-2024 Creatinine [Mass/Vol] 0.76 mg/dL 0.70-1.20 [facility] Serum glucose measurement (m ass/volume)Ordered By: Yesika Faust on 12-14-2024 Glucose [Mass/Vol] 105 mg/dL High 70-99 [facility] Serum or plasma calcium madi urement (mass/volume)Ordered By: Yesika Faust on 12-14-2024 Calcium [Mass/Vol] 9.7 mg/dL 7.6-11.0 [facility] Serum or plasma urea nitroge n measurement (mass/volume)Ordered By: Yesika Faust on 12-14-2024 Urea nitrogen [Mass/Vol] 23 mg/dL High 4-19 [facility] Sodium levelOrdered By: Jed Faust on 12-14-2024 Sodium [Moles/Vol] 141 mmol/L 133-145 [facility] White blood cell (WBC) count Ordered By: Yesika Faust on 12-14-2024 WBC (Bld) [#/Vol] 8.2 10*3/uL 4.4-11.0 [facility] Absolute lymphocyte countOrd ered By: Yesika Faust on 11-14-2024 Lymphocytes Auto (Unsp spec) [#/Vol] 2.15 10*3/uL 0.83-4.51 [facility] Absolute neutrophil countOrd ered By: Yesika Faust on 11-14-2024 Neutrophils (Bld) [#/Vol] 4.8 10*3/uL 2.0-7.7 [facility] Automated lymphocyte count a s percentage of total leukocytesOrdered By: Yesika Faust on 11-14-2024 Lymphocytes/100 WBC Auto (Unsp spec) 25.7 % 19-41 [facility] BUN/creatinine ratioOrdered By: Yesika Faust on 11-14-2024 Urea nitrogen/Creatinine [Mass ratio] 36.8 mg/mg High 10-20 [facility] Basophil percentageOrdered B y: Yesika Faust on 11-14-2024 Basophils/100 WBC (Bld) 1.0 % 0-1 [facility] Carbon dioxide measurementOr dered By: Yesika Faust on 11-14-2024 CO2 [Moles/Vol] 27.6 mmol/L 22.0-29.0 [facility] Chloride measurementOrdered By: Yesika Faust on 11-14-2024 Chloride [Moles/Vol] 101 mmol/L 96-108 [facility] Eosinophil percentageOrdered By: Yesika Faust 11-14-2024 Eosinophils/100 WBC (Bld) 7.9 % High 0-5 [facility] Erythrocyte distribution wid th (RBC) [Ratio]Ordered By: Yesika Faust on 11-14-2024 Erythrocyte distribution width (RBC) [Entitic vol] 46.1 fL High 35.1-43.9 [facility] Erythrocyte distribution wid th ratioOrdered By: Jedkeomacarena Faust on 11-14-2024 Erythrocyte distribution width (RBC) [Ratio] 12.9 % 11.6-14.6 [facility] Erythrocyte distribution wid th standard deviationOrdered By: enriquetakeomacarena Faust on 11-14-2024 Erythrocyte distribution width (RBC) [Ratio] 46.1 fl High 35.1-43.9 [facility] GFR/1.73 sq M.predicted giorgio g non-blacks MDRD (S/P/Bld) [Vol rate/Area]Ordered By: Yesika Faust on 11-14-2024 Estimated GFR (MDRD) Non-Af Amer 86 >60 [facility] Comment on above: mL/min/1.73m2 CKD-EP I Creatinine Equation (2020) Glomerular filtration rate ( GFR) estimation/1.73 sq m using serum, plasma, or whole bOrdered By: Yesika Faust on 11-14-2024 GFR/1.73 sq M.predicted among non-blacks MDRD (S/P/Bld) [Vol rate/Area] 86 mL/min/{1.73_m2} >60 [facility] Comment on above: mL/min/1.73m2 CKD-EP I Creatinine Equation (2020) Hematocrit Auto (Bld) [Volum e fraction]Ordered By: Yesika Faust 11-14-2024 Hematocrit (Bld) [Volume fraction] 46.9 % 37-47 [facility] Hemoglobin measurementOrdere d By: Yesika Faust on 11-14-2024 Hemoglobin (Bld) [Mass/Vol] 15.0 g/dL 12.0-15.0 [facility] Immature granulocytes/100 WB C Auto (Bld)Ordered By: Yesika Faust on 11-14-2024 Immature granulocytes/100 WBC (Bld) 0.500 % 0.0-0.9 [facility] Comment on above: IG% - Immature Granu locytes (promyelocytes, myelocytes and metamyelocytes) > 1% indicates that a LEFT SHIFT is Present. Lymphocytes Auto (Unsp spec) [#/Vol]Ordered By: Jedkeomacarena Faust on 11-14-2024 Lymphocytes (Bld) [#/Vol] 2.15 10*3/uL 0.83-4.51 [facility] Lymphocytes/100 WBC Auto (Un sp spec)Ordered By: Yesika Faust on 11-14-2024 Lymphocytes/100 WBC (Bld) 25.7 % 19-41 [facility] MCV (mean corpuscular volume ) determinationOrdered By: enriquetakeomacarena Faust on 11-14-2024 MCV (RBC) [Entitic vol] 96.9 fL 81-99 [facility] Mean corpuscular hemoglobin (MCH) determinationOrdered By: Jedkeomacarena Faust on 11-14-2024 MCH (RBC) [Entitic mass] 31.0 pg 27.0-32.0 [facility] Mean corpuscular hemoglobin concentration (MCHC) determinationOrdered By: Yesika Faust on 11-14-2024 MCHC (RBC) [Mass/Vol] 32.0 g/dL 32-36 [facility] Mean platelet volume determi nationOrdered By: ky Faust on 11-14-2024 Platelet mean volume (Bld) [Entitic vol] 10.4 fL 6.2-12.0 [facility] Monocyte percentageOrdered B y: Yesika Faust on 11-14-2024 Monocytes/100 WBC (Bld) 7.9 % 0-10 [facility] Neutrophil percentageOrdered By: Yesika Faust on 11-14-2024 Neutrophils/100 WBC (Bld) 57.0 % 47-70 [facility] Nucleated red blood cell per centageOrdered By: Yesika Faust on 11-14-2024 Nucleated RBC/100 WBC (Bld) [Ratio] 0 % 0-5 [facility] Platelet countOrdered By: Tad Faust on 11-14-2024 Platelets (Bld) [#/Vol] 269 10*3/uL 150-450 [facility] RBC Auto (Bld) [#/Vol]Ordere d By: Yesika Faust on 11-14-2024 RBC (Bld) [#/Vol] 4.84 10*6/uL 4.2-5.4 [facility] Serum creatinine measurement (mass/volume)Ordered By: Yesika Faust on 11-14-2024 Creatinine [Mass/Vol] 0.65 mg/dL Low 0.70-1.20 [facility] Serum glucose measurement (m ass/volume)Ordered By: Yesika Faust on 11-14-2024 Glucose [Mass/Vol] 97 mg/dL 70-99 [facility] Serum or plasma anion gap de termination (moles/volume)Ordered By: Yesika Faust on 11-14-2024 Anion gap [Moles/Vol] 12 mmol/L 5-15 [facility] Serum or plasma calcium madi urement (mass/volume)Ordered By: Yesika Faust on 11-14-2024 Calcium [Mass/Vol] 9.4 mg/dL 7.6-11.0 [facility] Serum or plasma potassium me asurementOrdered By: Yesika Faust on 11-14-2024 Potassium [Moles/Vol] 4.3 mmol/L 3.3-5.1 [facility] Comment on above: Hemolysis present, R esults could be affected. Serum or plasma sodium measu rement (moles/volume)Ordered By: Yesika Faust on 11-14-2024 Sodium [Moles/Vol] 141 mmol/L 133-145 [facility] Serum or plasma urea nitroge n measurement (mass/volume)Ordered By: Yesika Faust on 11-14-2024 Urea nitrogen [Mass/Vol] 24 mg/dL High 4-19 [facility] White blood cell (WBC) count Ordered By: Yesika Faust on 11-14-2024 WBC (Bld) [#/Vol] 8.4 10*3/uL 4.4-11.0 [facility] Absolute lymphocyte countOrd ered By: Yesika Faust on 10-17-2024 Lymphocytes Auto (Unsp spec) [#/Vol] 1.81 10*3/uL 0.83-4.51 [facility] Absolute neutrophil countOrd ered By: Yesika Faust on 10-17-2024 Neutrophils (Bld) [#/Vol] 3.3 10*3/uL 2.0-7.7 [facility] Automated lymphocyte count a s percentage of total leukocytesOrdered By: Yesika Faust on 10-17-2024 Lymphocytes/100 WBC Auto (Unsp spec) 26.5 % 19-41 [facility] Basophil percentageOrdered B y: Yesika Faust on 10-17-2024 Basophils/100 WBC (Bld) 0.7 % 0-1 [facility] Bilirubin directOrdered By: Yesika Faust on 10-17-2024 Bilirubin.direct [Mass/Vol] 0.09 mg/dL 0.00-0.30 [facility] Bilirubin, totalOrdered By: Yesika Faust on 10-17-2024 Bilirubin [Mass/Vol] 0.20 mg/dL 0.20-1.00 [facility] Comment on above: For patients on eltr ombopag therapy, use of Dimension [place] TBIL is not recommended. Blood urea nitrogen (BUN)/cr eatinine ratioOrdered By: Yesika Faust on 10-17-2024 Urea nitrogen/Creatinine [Mass ratio] 49.3 mg/mg High 10-20 [facility] Carbon dioxide measurementOr dered By: Yesika Faust on 10-17-2024 CO2 [Moles/Vol] 29.0 mmol/L 21.0-32.0 [facility] Chloride measurementOrdered By: Yesika Faust on 10-17-2024 Chloride [Moles/Vol] 106 mmol/L 98-107 [facility] Eosinophil percentageOrdered By: Yesika Faust on 10-17-2024 Eosinophils/100 WBC (Bld) 14.6 % High 0-5 [facility] Erythrocyte distribution wid th (RBC) [Ratio]Ordered By: Yesika Faust on 10-17-2024 Erythrocyte distribution width (RBC) [Entitic vol] 46.3 fL High 35.1-43.9 [facility] Erythrocyte distribution wid th ratioOrdered By: Yesika Faust on 10-17-2024 Erythrocyte distribution width (RBC) [Ratio] 13.0 % 11.6-14.6 [facility] Erythrocyte distribution wid th standard deviationOrdered By: Yesika Faust on 10-17-2024 Erythrocyte distribution width (RBC) [Ratio] 46.3 fl High 35.1-43.9 [facility] Estimated glomerular filtrat ion rate (GFR) AmericanOrdered By: Yesika Faust on 10-17-2024 Estimated GFR (MDRD) Amer 120 mL/min >60 [facility] Comment on above: GFR Calc Glomerular filtration rate ( GFR) estimationOrdered By: Yesika Faust on 10-17-2024 Estimated GFR (MDRD) Non-Af Amer 99 mL/min >60 [facility] Comment on above: Non- GFR Calc GFR/1.73 sq M.predicted among non-blacks MDRD (S/P/Bld) [Vol rate/Area] 99 mL/min/{1.73_m2} >60 [facility] Comment on above: Non- GFR Calc Glucose measurementOrdered B y: Yesika Faust on 10-17-2024 Glucose [Mass/Vol] 86 mg/dL 74-106 [facility] Hematocrit Auto (Bld) [Volum e fraction]Ordered By: Yesika Faust on 10-17-2024 Hematocrit (Bld) [Volume fraction] 41.4 % 37-47 [facility] Hemoglobin measurementOrdere d By: Yesika Faust on 10-17-2024 Hemoglobin (Bld) [Mass/Vol] 13.5 g/dL 12.0-15.0 [facility] Immature granulocytes/100 WB C Auto (Bld)Ordered By: Yesika Faust on 10-17-2024 Immature granulocytes/100 WBC (Bld) 0.400 % 0.0-0.9 [facility] Comment on above: IG% - Immature Granu locytes (promyelocytes, myelocytes and metamyelocytes) > 1% indicates that a LEFT SHIFT is Present. Laboratory - Chemistry and C hemistry - challengeOrdered By: Yesika Faust on 10-17-2024 AST [Catalytic activity/Vol] 12 U/L Low 15-37 [facility] Lymphocytes Auto (Unsp spec) [#/Vol]Ordered By: Yesika Faust on 10-17-2024 Lymphocytes (Bld) [#/Vol] 1.81 10*3/uL 0.83-4.51 [facility] Lymphocytes/100 WBC Auto (Un sp spec)Ordered By: Yesika Faust on 10-17-2024 Lymphocytes/100 WBC (Bld) 26.5 % 19-41 [facility] MCV (mean corpuscular volume ) determinationOrdered By: Yesika Faust on 10-17-2024 MCV (RBC) [Entitic vol] 98.6 fL 81-99 [facility] Mean corpuscular hemoglobin (MCH) determinationOrdered By: Yesika Faust on 10-17-2024 MCH (RBC) [Entitic mass] 32.1 pg High 27.0-32.0 [facility] Mean corpuscular hemoglobin concentration (MCHC) determinationOrdered By: Yesika Faust on 10-17-2024 MCHC (RBC) [Mass/Vol] 32.6 g/dL 32-36 [facility] Mean platelet volume determi nationOrdered By: Yesika Faust on 10-17-2024 Platelet mean volume (Bld) [Entitic vol] 10.6 fL 6.2-12.0 [facility] Monocyte percentageOrdered B y: Yesika Faust on 10-17-2024 Monocytes/100 WBC (Bld) 9.5 % 0-10 [facility] Neutrophil percentageOrdered By: Yesika Faust on 10-17-2024 Neutrophils/100 WBC (Bld) 48.3 % 47-70 [facility] Nucleated red blood cell per centageOrdered By: Yesika Faust on 10-17-2024 Nucleated RBC/100 WBC (Bld) [Ratio] 0 % 0-5 [facility] Platelet countOrdered By: Tad Faust on 10-17-2024 Platelets (Bld) [#/Vol] 232 10*3/uL 150-450 [facility] Potassium measurementOrdered By: Yesika Faust on 10-17-2024 Potassium [Moles/Vol] 4.0 mmol/L 3.5-5.1 [facility] RBC Auto (Bld) [#/Vol]Ordere d By: Yesika Faust on 10-17-2024 RBC (Bld) [#/Vol] 4.20 10*6/uL 4.2-5.4 [facility] Serum anion gap measurementO rdered By: Yesika Faust on 10-17-2024 Anion gap [Moles/Vol] 5 mmol/L 5-15 [facility] Serum globulin measurementOr dered By: Yesika Faust on 10-17-2024 Globulin (S) [Mass/Vol] 3.2 g/dL 2.2-4.2 [facility] Serum or plasma alanine vela otransferase (ALT) measurementOrdered By: Yesika Faust on 10-17-2024 ALT [Catalytic activity/Vol] 19 U/L 13-56 [facility] Serum or plasma albumin madi urement (mass/volume)Ordered By: Yesika Faust on 10-17-2024 Albumin [Mass/Vol] 3.1 g/dL Low 3.2-5.0 [facility] Serum or plasma alkaline mariaelena sphatase measurementOrdered By: Yesika Faust on 10-17-2024 ALP [Catalytic activity/Vol] 108 U/L 45-117 [facility] Serum or plasma calcium madi urement (mass/volume)Ordered By: Yesika Faust on 10-17-2024 Calcium [Mass/Vol] 9.1 mg/dL 8.5-10.1 [facility] Serum or plasma creatinine m easurement [...] Urea nitrogen [Mass/Vol] 30 mg/dL High 7-18 [facility] Sodium levelOrdered By: Jed Faust on 10-17-2024 Sodium [Moles/Vol] 140 mmol/L 136-145 [facility] Total proteinOrdered By: Randall Faust on 10-17-2024 Protein [Mass/Vol] 6.3 g/dL Low 6.4-8.2 [facility] White blood cell (WBC) count Ordered By: Yesika Faust on 10-17-2024 WBC (Bld) [#/Vol] 6.8 10*3/uL 4.4-11.0 [facility] Bilirubin Test strip Ql (U)O rdered By: Yesika Faust on 10-14-2024 Bilirubin Ql (U) Negative Negative [facility] Epithelial cells.squamous LM Ql (Urine sed)Ordered By: Yesika Faust on 10-14-2024 Epithelial cells.squamous LM.HPF (Urine sed) [#/Area] 0 /[HPF] 5-10 [facility] Glucose Ql (U)Ordered By: Tad Faust on 10-14-2024 Urine Glucose (UA) Normal mg/dl Normal [facility] Ketones Test strip Ql (U)Ord ered By: Yesika Faust on 10-14-2024 Ketones Ql (U) Negative Negative [facility] Microscopic analysis of urin e for red blood cells (RBC)Ordered By: Yesika Faust on 10-14-2024 Microscopic analysis of urine for red blood cells (RBC) 0 SEEN /hpf 0-5 [facility] Urine RBC 0 SEEN /hpf 0-5 [facility] Mucus LM Ql (Urine sed)Order ed By: Yesika Faust on 10-14-2024 Mucus Ql (Urine sed) 0 SEEN /hpf [facility] Nitrite Test strip Ql (U)Ord ered By: Yesika Faust on 10-14-2024 Nitrite Ql (U) Positive High Negative [facility] Protein Test strip Ql (U)Ord ered By: Yesika Faust on 10-14-2024 Protein Ql (U) 15 mg/dl High Negative [facility] Squamous epithelial cells de tection in urine sediment by light microscopyOrdered By: Yesika Faust on 10-14-2024 Epithelial cells.squamous LM Ql (Urine sed) 0 SEEN /hpf 5-10 [facility] Triple phosphate crystals LM Ql (Urine sed)Ordered By: Yesika Faust on 10-14-2024 Urine Triple Phosphate Crystals 1+ /hpf [facility] Triple phosphate crystals de tection in urine sediment by light microscopyOrdered By: Yesika Faust on 10-14-2024 Triple phosphate crystals LM Ql (Urine sed) 1+ /hpf [facility] Urine blood detectionOrdered By: Yesika Faust on 10-14-2024 Urine Occult Blood Negative Negative [facility] Urine clarityOrdered By: Randall Faust on 10-14-2024 Clarity (U) Sl. Cloudy Clear [facility] Urine color determinationOrd ered By: Yesika Faust on 10-14-2024 Color (U) Yellow Yellow [facility] Urine cultureOrdered By: Randall Faust on 10-14-2024 Bacteria identified Cx Nom (U) Proteus mirabilis Abnormal [facility] Urine glucose detectionOrder ed By: Yesika Faust on 10-14-2024 Glucose Ql (U) Normal mg/dl Normal [facility] Urine leukocyte esterase det ection by dipstickOrdered By: Yesika Faust on 10-14-2024 Leukocyte esterase Test strip Ql (U) 25 /ul High Negative [facility] Urine pHOrdered By: Fernando Faust on 10-14-2024 pH (U) 9.0 [pH] 5.0 - 8.0 [facility] Urine sediment bacteria coun t by microscopy (number/high power field)Ordered By: Yesika Faust on 10-14-2024 Bacteria LM.HPF (Urine sed) [#/Area] 1 /[HPF] None Seen [facility] Urine specific gravity measu rementOrdered By: Yesika Faust on 10-14-2024 Specific gravity (U) [Rel density] 1.015 1.002-1.03 0 [facility] Urine urobilinogen measureme ntOrdered By: Yesika Faust on 10-14-2024 Urobilinogen Ql (U) Normal mg/dl Normal [facility] Urobilinogen Ql (U)Ordered B y: Yesika Faust on 10-14-2024 Urine Urobilinogen Normal mg/dl Normal [facility] White blood cell countOrdere d By: Yesika Faust on 10-14-2024 Urine WBC 0 SEEN /hpf 0-5 [facility] White blood cell count 0 SEEN /hpf 0-5 [facility] Absolute neutrophil countOrd ered By: Yesika Faust on 09-16-2024 Neutrophils (Bld) [#/Vol] 4.4 10*3/uL 2.0-7.7 [facility] Basophil percentageOrdered B y: Yeskia Faust on 09-16-2024 Basophils/100 WBC (Bld) 0.7 % 0-1 [facility] Blood urea nitrogen (BUN)/cr eatinine ratioOrdered By: Yesika Faust on 09-16-2024 Urea nitrogen/Creatinine [Mass ratio] 40.5 mg/mg High 10-20 [facility] Carbon dioxide measurementOr dered By: Yesika Faust on 09-16-2024 CO2 [Moles/Vol] 28.0 mmol/L 21.0-32.0 [facility] Chloride measurementOrdered By: Yesika Faust on 09-16-2024 Chloride [Moles/Vol] 106 mmol/L 98-107 [facility] Eosinophil percentageOrdered By: Yesika Faust on 09-16-2024 Eosinophils/100 WBC (Bld) 3.0 % 0-5 [facility] Erythrocyte distribution wid th (RBC) [Ratio]Ordered By: ky Faust on 09-16-2024 Erythrocyte distribution width (RBC) [Entitic vol] 48.3 fL High 35.1-43.9 [facility] Erythrocyte distribution wid th ratioOrdered By: ky Faust on 09-16-2024 Erythrocyte distribution width (RBC) [Ratio] 13.2 % 11.6-14.6 [facility] Estimated glomerular filtrat ion rate (GFR) AmericanOrdered By: ky Faust on 09-16-2024 Estimated GFR (MDRD) Amer 162 mL/min >60 [facility] Comment on above: GFR Calc Glomerular filtration rate ( GFR) estimationOrdered By: Yesika Faust on 09-16-2024 Estimated GFR (MDRD) Non-Af Amer 134 mL/min >60 [facility] Comment on above: Non- GFR Calc Glucose measurementOrdered B y: Yesika Faust on 09-16-2024 Glucose [Mass/Vol] 89 mg/dL 74-106 [facility] Hematocrit Auto (Bld) [Volum e fraction]Ordered By: ky Faust on 09-16-2024 Hematocrit (Bld) [Volume fraction] 38.9 % 37-47 [facility] Hemoglobin measurementOrdere d By: Yesika Faust on 09-16-2024 Hemoglobin (Bld) [Mass/Vol] 12.4 g/dL 12.0-15.0 [facility] Immature granulocytes/100 WB C Auto (Bld)Ordered By: ky Faust on 09-16-2024 Immature granulocytes/100 WBC (Bld) 0.300 % 0.0-0.9 [facility] Comment on above: IG% - Immature Granu locytes (promyelocytes, myelocytes and metamyelocytes) > 1% indicates that a LEFT SHIFT is Present. Lymphocytes Auto (Unsp spec) [#/Vol]Ordered By: Yesika Faust on 09-16-2024 Lymphocytes (Bld) [#/Vol] 1.59 10*3/uL 0.83-4.51 [facility] Lymphocytes/100 WBC Auto (Un sp spec)Ordered By: Yesika Faust on 09-16-2024 Lymphocytes/100 WBC (Bld) 23.1 % 19-41 [facility] MCV (mean corpuscular volume ) determinationOrdered By: Yesika Faust on 09-16-2024 MCV (RBC) [Entitic vol] 98.7 fL 81-99 [facility] Mean corpuscular hemoglobin (MCH) determinationOrdered By: Yesika Faust on 09-16-2024 MCH (RBC) [Entitic mass] 31.5 pg 27.0-32.0 [facility] Mean corpuscular hemoglobin concentration (MCHC) determinationOrdered By: ky Faust on 09-16-2024 MCHC (RBC) [Mass/Vol] 31.9 g/dL Low 32-36 [facility] Mean platelet volume determi nationOrdered By: Yesika Faust on 09-16-2024 Platelet mean volume (Bld) [Entitic vol] 10.6 fL 6.2-12.0 [facility] Monocyte percentageOrdered B y: Yesika Faust on 09-16-2024 Monocytes/100 WBC (Bld) 9.6 % 0-10 [facility] Neutrophil percentageOrdered By: Yesika Faust on 09-16-2024 Neutrophils/100 WBC (Bld) 63.3 % 47-70 [facility] Nucleated red blood cell per centageOrdered By: ky Faust on 09-16-2024 Nucleated RBC/100 WBC (Bld) [Ratio] 0 % 0-5 [facility] Platelet countOrdered By: Tad Faust on 09-16-2024 Platelets (Bld) [#/Vol] 241 10*3/uL 150-450 [facility] Potassium measurementOrdered By: Yesika Faust on 09-16-2024 Potassium [Moles/Vol] 3.8 mmol/L 3.5-5.1 [facility] RBC Auto (Bld) [#/Vol]Ordere d By: Yesika Faust on 09-16-2024 RBC (Bld) [#/Vol] 3.94 10*6/uL Low 4.2-5.4 [facility] Serum anion gap measurementO rdered By: Yesika Faust on 09-16-2024 Anion gap [Moles/Vol] 5 mmol/L 5-15 [facility] Serum or plasma calcium madi urement (mass/volume)Ordered By: Yesika Faust on 09-16-2024 Calcium [Mass/Vol] 8.8 mg/dL 8.5-10.1 [facility] Serum or plasma creatinine m easurement [...] Urea nitrogen [Mass/Vol] 19 mg/dL High 7-18 [facility] Sodium levelOrdered By: Jed Faust on 09-16-2024 Sodium [Moles/Vol] 139 mmol/L 136-145 [facility] White blood cell (WBC) count Ordered By: Yesika Faust on 09-16-2024 WBC (Bld) [#/Vol] 6.9 10*3/uL 4.4-11.0 [facility] Absolute neutrophil countOrd ered By: Yesika Faust on 08-16-2024 Neutrophils (Bld) [#/Vol] 3.4 10*3/uL 2.0-7.7 [facility] Basophil percentageOrdered B y: Yesika Faust on 08-16-2024 Basophils/100 WBC (Bld) 0.7 % 0-1 [facility] Blood urea nitrogen (BUN)/cr eatinine ratioOrdered By: Yesika Faust on 08-16-2024 Urea nitrogen/Creatinine [Mass ratio] 35.8 mg/mg High 10-20 [facility] Carbon dioxide measurementOr dered By: Yesika Faust on 08-16-2024 CO2 [Moles/Vol] 28.0 mmol/L 21.0-32.0 [facility] Chloride measurementOrdered By: Yesika Faust on 08-16-2024 Chloride [Moles/Vol] 110 mmol/L High 98-107 [facility] Eosinophil percentageOrdered By: Yesika Faust on 08-16-2024 Eosinophils/100 WBC (Bld) 3.1 % 0-5 [facility] Erythrocyte distribution wid th (RBC) [Ratio]Ordered By: Yesika Faust on 08-16-2024 Erythrocyte distribution width (RBC) [Entitic vol] 50.8 fL High 35.1-43.9 [facility] Erythrocyte distribution wid th ratioOrdered By: Yesika Faust on 08-16-2024 Erythrocyte distribution width (RBC) [Ratio] 14.0 % 11.6-14.6 [facility] Estimated glomerular filtrat ion rate (GFR) AmericanOrdered By: Yesika Faust on 08-16-2024 Estimated GFR (MDRD) Amer 141 mL/min >60 [facility] Comment on above: GFR Calc Glomerular filtration rate ( GFR) estimationOrdered By: Yesika Faust on 08-16-2024 Estimated GFR (MDRD) Non-Af Amer 116 mL/min >60 [facility] Comment on above: Non- GFR Calc Glucose measurementOrdered B y: Yesika Faust on 08-16-2024 Glucose [Mass/Vol] 85 mg/dL 74-106 [facility] Hematocrit Auto (Bld) [Volum e fraction]Ordered By: Yesika Faust on 08-16-2024 Hematocrit (Bld) [Volume fraction] 41.2 % 37-47 [facility] Hemoglobin measurementOrdere d By: Yesika Faust on 08-16-2024 Hemoglobin (Bld) [Mass/Vol] 12.9 g/dL 12.0-15.0 [facility] Immature granulocytes/100 WB C Auto (Bld)Ordered By: Yesika Faust on 08-16-2024 Immature granulocytes/100 WBC (Bld) 0.300 % 0.0-0.9 [facility] Comment on above: IG% - Immature Granu locytes (promyelocytes, myelocytes and metamyelocytes) > 1% indicates that a LEFT SHIFT is Present. Lymphocytes Auto (Unsp spec) [#/Vol]Ordered By: Yesika Faust on 08-16-2024 Lymphocytes (Bld) [#/Vol] 1.61 10*3/uL 0.83-4.51 [facility] Lymphocytes/100 WBC Auto (Un sp spec)Ordered By: Yesika Faust on 08-16-2024 Lymphocytes/100 WBC (Bld) 27.4 % 19-41 [facility] MCV (mean corpuscular volume ) determinationOrdered By: Yesika Faust on 08-16-2024 MCV (RBC) [Entitic vol] 99.0 fL 81-99 [facility] Mean corpuscular hemoglobin (MCH) determinationOrdered By: enriquetakeomacarena Faust on 08-16-2024 MCH (RBC) [Entitic mass] 31.0 pg 27.0-32.0 [facility] Mean corpuscular hemoglobin concentration (MCHC) determinationOrdered By: Yesika Faust on 08-16-2024 MCHC (RBC) [Mass/Vol] 31.3 g/dL Low 32-36 [facility] Mean platelet volume determi nationOrdered By: Yesika Faust on 08-16-2024 Platelet mean volume (Bld) [Entitic vol] 10.8 fL 6.2-12.0 [facility] Monocyte percentageOrdered B y: Yesika Faust on 08-16-2024 Monocytes/100 WBC (Bld) 10.5 % High 0-10 [facility] Neutrophil percentageOrdered By: Yesika Faust on 08-16-2024 Neutrophils/100 WBC (Bld) 58.0 % 47-70 [facility] Nucleated red blood cell per centageOrdered By: Yesika Faust on 08-16-2024 Nucleated RBC/100 WBC (Bld) [Ratio] 0 % 0-5 [facility] Platelet countOrdered By: Tad shymacarena Butterfieldkathierafaela on 08-16-2024 Platelets (Bld) [#/Vol] 242 10*3/uL 150-450 [facility] Potassium measurementOrdered By: Jedsaeidmacarena Butterfieldkathierafaela on 08-16-2024 Potassium [Moles/Vol] 3.9 mmol/L 3.5-5.1 [facility] RBC Auto (Bld) [#/Vol]Ordere d By: Tadshymacarena Butterfieldandreea on 08-16-2024 RBC (Bld) [#/Vol] 4.16 10*6/uL Low 4.2-5.4 [facility] Serum anion gap measurementO rdered By: Tadenriquetasaeidmacarena Butterfieldkathierafaela on 08-16-2024 Anion gap [Moles/Vol] 4 mmol/L Low 5-15 [facility] Serum or plasma calcium madi urement (mass/volume)Ordered By: Yesika Butterfieldkathierafaela on 08-16-2024 Calcium [Mass/Vol] 8.9 mg/dL 8.5-10.1 [facility] Serum or plasma creatinine m easurement [...] Urea nitrogen [Mass/Vol] 19 mg/dL High 7-18 [facility] Sodium levelOrdered By: Jed denae Scoutkathierafaela on 08-16-2024 Sodium [Moles/Vol] 142 mmol/L 136-145 [facility] White blood cell (WBC) count Ordered By: Jedsaeidmacarena Butterfieldkathierafaela on 08-16-2024 WBC (Bld) [#/Vol] 5.9 10*3/uL 4.4-11.0 [facility] Absolute lymphocyte countOrd ered By: ky Faust on 11-17-2023 Lymphocytes Auto (Unsp spec) [#/Vol] 1.64 10*3/uL 0.83-4.51 [facility] Automated lymphocyte count a s percentage of total leukocytesOrdered By: Yesika Faust on 11-17-2023 Lymphocytes/100 WBC Auto (Unsp spec) 26.6 % 19-41 [facility] Basophil percentageOrdered B y: Yesika Faust on 11-17-2023 Basophils/100 WBC (Bld) 0.6 % 0-1 [facility] Chloride [Moles/Vol] 109 mmol/L 98-107 [facility] Eosinophils/100 WBC (Bld) 1.8 % 0-5 [facility] Glucose [Mass/Vol] 91 mg/dL 74-106 [facility] Hemoglobin (Bld) [Mass/Vol] 12.9 g/dL 12.0-15.0 [facility] Monocytes/100 WBC (Bld) 9.4 % 0-10 [facility] Neutrophils (Bld) [#/Vol] 3.8 10*3/uL 2.0-7.7 [facility] Neutrophils/100 WBC (Bld) 61.1 % 47-70 [facility] Potassium [Moles/Vol] 3.8 mmol/L 3.5-5.1 [facility] Sodium [Moles/Vol] 140 mmol/L 136-145 [facility] WBC (Bld) [#/Vol] 6.2 10*3/uL 4.4-11.0 [facility] Determination of erythrocyte mean corpuscular volume (MCV)Ordered By: Yesika Faust on 11-17-2023 MCV (RBC) [Entitic vol] 91.8 fL 81-99 [facility] Erythrocyte distribution wid th ratioOrdered By: enriquetakeomacarena Faust on 11-17-2023 Erythrocyte distribution width (RBC) [Ratio] 14.3 % 11.6-14.6 [facility] Erythrocyte distribution wid th standard deviationOrdered By: Yesika Faust on 11-17-2023 Erythrocyte distribution width (RBC) [Entitic vol] 48.0 fL 35.1-43.9 [facility] Hematocrit Auto (Bld) [Volum e fraction]Ordered By: Yesika Faust on 11-17-2023 Hematocrit (Bld) [Volume fraction] 39.3 % 37-47 [facility] Immature granulocytes/100 WB C Auto (Bld)Ordered By: Yesika Faust on 11-17-2023 Immature granulocytes/100 WBC (Bld) 0.500 % 0.0-0.9 [facility] Comment on above: IG% - Immature Granu locytes (promyelocytes, myelocytes and metamyelocytes) > 1% indicates that a LEFT SHIFT is Present. Laboratory - Chemistry and C hemistry - challengeOrdered By: Yesika Faust on 11-17-2023 CO2 [Moles/Vol] 28.0 mmol/L 21.0-32.0 [facility] Urea nitrogen/Creatinine [Mass ratio] 18.6 mg/mg 10-20 [facility] Laboratory - Hematology and Cell countsOrdered By: Yesika Faust on 11-17-2023 MCH (RBC) [Entitic mass] 30.1 pg 27.0-32.0 [facility] MCHC (RBC) [Mass/Vol] 32.8 g/dL 32-36 [facility] Nucleated RBC/100 WBC (Bld) [Ratio] 0 % 0-5 [facility] Platelet mean volume (Bld) [Entitic vol] 9.9 fL 6.2-12.0 [facility] Platelets (Bld) [#/Vol] 230 10*3/uL 150-450 [facility] No Panel InformationOrdered By: Yesika Faust on 11-17-2023 Estimated GFR (MDRD) Amer 94 mL/min >60 [facility] Comment on above: GFR Calc Estimated GFR (MDRD) Non-Af Amer 78 mL/min >60 [facility] Comment on above: Non- GFR Calc RBC Auto (Bld) [#/Vol]Ordere d By: Yesika Faust on 11-17-2023 RBC (Bld) [#/Vol] 4.28 10*6/uL 4.2-5.4 [facility] Serum or plasma calcium madi urement (mass/volume)Ordered By: Yesika Faust on 11-17-2023 Calcium [Mass/Vol] 9.2 mg/dL 8.5-10.1 [facility] Serum or plasma creatinine m easurement [...] 11-17-2023 Urea nitrogen [Mass/Vol] 14 mg/dL 7-18 [facility] Thin prep Papanicolaou smear with manual screeningOrdered By: [facility] Scoutrafaela on 11-17-2023 Thin prep Papanicolaou smear with manual screening 3 5-15 [facility] Absolute lymphocyte countOrd ered By: Yesika Faust on 08-18-2023 Lymphocytes Auto (Unsp spec) [#/Vol] 1.67 10*3/uL 0.83-4.51 [facility] Basophil percentageOrdered B y: Yesika Faust on 08-18-2023 Basophils/100 WBC (Bld) 0.7 % 0-1 [facility] Chloride [Moles/Vol] 109 mmol/L 98-107 [facility] Eosinophils/100 WBC (Bld) 2.8 % 0-5 [facility] Glucose [Mass/Vol] 89 mg/dL 74-106 [facility] Neutrophils (Bld) [#/Vol] 3.1 10*3/uL 2.0-7.7 [facility] Neutrophils/100 WBC (Bld) 56.1 % 47-70 [facility] Potassium [Moles/Vol] 4.0 mmol/L 3.5-5.1 [facility] Sodium [Moles/Vol] 141 mmol/L 136-145 [facility] WBC (Bld) [#/Vol] 5.4 10*3/uL 4.4-11.0 [facility] Blood erythrocytes count (nu mber/volume)Ordered By: Yesika Faust on 08-18-2023 RBC (Bld) [#/Vol] 4.55 10*6/uL 4.2-5.4 [facility] Blood hemoglobin measurement (mass/volume)Ordered By: Yesika Faust on 08-18-2023 Hemoglobin (Bld) [Mass/Vol] 12.9 g/dL 12.0-15.0 [facility] Blood lymphocytes/100 leukoc ytesOrdered By: enriquetakeomacarena Faust on 08-18-2023 Lymphocytes/100 WBC (Bld) 30.8 % 19-41 [facility] Blood monocytes/100 leukocyt esOrdered By: ky Faust on 08-18-2023 Monocytes/100 WBC (Bld) 9.4 % 0-10 [facility] Blood platelet mean volumeOr dered By: Yesika Faust on 08-18-2023 Platelet mean volume (Bld) [Entitic vol] 10.4 fL 6.2-12.0 [facility] Determination of erythrocyte mean corpuscular volume (MCV)Ordered By: Yesika Faust on 08-18-2023 MCV (RBC) [Entitic vol] 89.5 fL 81-99 [facility] Hematocrit Auto (Bld) [Volum e fraction]Ordered By: Yesika Faust on 08-18-2023 Hematocrit (Bld) [Volume fraction] 40.7 % 37-47 [facility] Laboratory - Chemistry and C hemistry - challengeOrdered By: Yesika Faust on 08-18-2023 CO2 [Moles/Vol] 29.0 mmol/L 21.0-32.0 [facility] Urea nitrogen/Creatinine [Mass ratio] 16.6 mg/mg 10-20 [facility] Laboratory - Hematology and Cell countsOrdered By: Yesika Faust on 08-18-2023 Erythrocyte distribution width (RBC) [Entitic vol] 45.5 fL 35.1-43.9 [facility] Erythrocyte distribution width (RBC) [Ratio] 13.9 % 11.6-14.6 [facility] Immature granulocytes/100 WBC (Bld) 0.200 % 0.0-0.9 [facility] Comment on above: IG% - Immature Granu locytes (promyelocytes, myelocytes and metamyelocytes) > 1% indicates that a LEFT SHIFT is Present. MCH (RBC) [Entitic mass] 28.4 pg 27.0-32.0 [facility] Nucleated RBC/100 WBC (Bld) [Ratio] 0 % 0-5 [facility] MCHC Auto (RBC) [Mass/Vol]Or dered By: Yesika Faust on 08-18-2023 MCHC (RBC) [Mass/Vol] 31.7 g/dL 32-36 [facility] No Panel InformationOrdered By: Yesika Faust on 08-18-2023 Estimated GFR (MDRD) Amer 109 mL/min >60 [facility] Comment on above: GFR Calc Estimated GFR (MDRD) Non-Af Amer 90 mL/min >60 [facility] Comment on above: Non- GFR Calc Platelets bldOrdered By: Randall Faust on 08-18-2023 Platelets (Bld) [#/Vol] 221 10*3/uL 150-450 [facility] Serum or plasma calcium madi urement (mass/volume)Ordered By: Yesika Faust on 08-18-2023 Calcium [Mass/Vol] 8.8 mg/dL 8.5-10.1 [facility] Serum or plasma creatinine m easurement [...] 08-18-2023 Urea nitrogen [Mass/Vol] 11 mg/dL 7-18 [facility] Thin prep Papanicolaou smear with manual screeningOrdered By: Yesika Faust on 08-18-2023 Thin prep Papanicolaou smear with manual screening 3 5-15 [facility] Absolute lymphocyte countOrd ered By: Yesika Faust on 05-19-2023 Lymphocytes Auto (Unsp spec) [#/Vol] 1.86 10*3/uL 0.83-4.51 [facility] Basophil percentageOrdered B y: Yesika Faust on 05-19-2023 Basophils/100 WBC (Bld) 0.8 % 0-1 [facility] Chloride [Moles/Vol] 107 mmol/L 98-107 [facility] Eosinophils/100 WBC (Bld) 1.5 % 0-5 [facility] Glucose [Mass/Vol] 125 mg/dL 74-106 [facility] Comment on above: Fasting Glucose resu lt from 100 to 125 mg/dL suggests IMPAIRED HOMEOSTASIS per A.D.A. criteria. Neutrophils (Bld) [#/Vol] 3.4 10*3/uL 2.0-7.7 [facility] Neutrophils/100 WBC (Bld) 55.5 % 47-70 [facility] Potassium [Moles/Vol] 3.6 mmol/L 3.5-5.1 [facility] Sodium [Moles/Vol] 139 mmol/L 136-145 [facility] WBC (Bld) [#/Vol] 6.2 10*3/uL 4.4-11.0 [facility] Blood erythrocytes count (nu mber/volume)Ordered By: Yesika Faust on 05-19-2023 RBC (Bld) [#/Vol] 4.24 10*6/uL 4.2-5.4 [facility] Blood hemoglobin measurement (mass/volume)Ordered By: Yesika Faust on 05-19-2023 Hemoglobin (Bld) [Mass/Vol] 11.7 g/dL 12.0-15.0 [facility] Blood lymphocytes/100 leukoc ytesOrdered By: Yesika Faust on 05-19-2023 Lymphocytes/100 WBC (Bld) 30.1 % 19-41 [facility] Blood monocytes/100 leukocyt esOrdered By: ky Faust on 05-19-2023 Monocytes/100 WBC (Bld) 11.8 % 0-10 [facility] Blood platelet mean volumeOr dered By: Yesika Faust on 05-19-2023 Platelet mean volume (Bld) [Entitic vol] 10.5 fL 6.2-12.0 [facility] Determination of erythrocyte mean corpuscular volume (MCV)Ordered By: enriquetakeomacarena Faust on 05-19-2023 MCV (RBC) [Entitic vol] 90.3 fL 81-99 [facility] Hematocrit Auto (Bld) [Volum e fraction]Ordered By: enriquetakeomacarena Faust on 05-19-2023 Hematocrit (Bld) [Volume fraction] 38.3 % 37-47 [facility] Laboratory - Chemistry and C hemistry - challengeOrdered By: enriquetakeomacarena Faust on 05-19-2023 CO2 [Moles/Vol] 29.0 mmol/L 21.0-32.0 [facility] Urea nitrogen/Creatinine [Mass ratio] 21.6 mg/mg 10-20 [facility] - Hematology and Cell countsOrdered By: ky Faust on 05-19-2023 Erythrocyte distribution width (RBC) [Entitic vol] 50.2 fL 35.1-43.9 [facility] Erythrocyte distribution width (RBC) [Ratio] 15.2 % 11.6-14.6 [facility] Immature granulocytes/100 WBC (Bld) 0.300 % 0.0-0.9 [facility] Comment on above: IG% - Immature Granu locytes (promyelocytes, myelocytes and metamyelocytes) > 1% indicates that a LEFT SHIFT is Present. MCH (RBC) [Entitic mass] 27.6 pg 27.0-32.0 [facility] Nucleated RBC/100 WBC (Bld) [Ratio] 0 % 0-5 [facility] MCHC Auto (RBC) [Mass/Vol]Or dered By: enriquetakeomacarena Faust on 05-19-2023 MCHC (RBC) [Mass/Vol] 30.5 g/dL 32-36 [facility] No Panel InformationOrdered By: [facility] on 05-19-2023 Estimated GFR (MDRD) Amer 74 mL/min >60 [facility] Comment on above: GFR Calc Estimated GFR (MDRD) Non-Af Amer 61 mL/min >60 [facility] Comment on above: Non- GFR Calc Platelets bldOrdered By: Randall Faust on 05-19-2023 Platelets (Bld) [#/Vol] 234 10*3/uL 150-450 [facility] Serum or plasma calcium madi urement (mass/volume)Ordered By: Yesika Faust on 05-19-2023 Calcium [Mass/Vol] 8.7 mg/dL 8.5-10.1 [facility] Serum or plasma creatinine m easurement [...] 05-19-2023 Urea nitrogen [Mass/Vol] 20 mg/dL 7-18 [facility] Thin prep Papanicolaou smear with manual screeningOrdered By: Yesika Faust on 05-19-2023 Thin prep Papanicolaou smear with manual screening 3 5-15 [facility] Absolute lymphocyte countOrd ered By: Yesika Faust on 02-17-2023 Lymphocytes Auto (Unsp spec) [#/Vol] 1.67 10*3/uL 0.83-4.51 [facility] Basophil percentageOrdered B y: Yesika Faust on 02-17-2023 Basophils/100 WBC (Bld) 0.8 % 0-1 [facility] Chloride [Moles/Vol] 109 mmol/L 98-107 [facility] Eosinophils/100 WBC (Bld) 2.8 % 0-5 [facility] Glucose [Mass/Vol] 94 mg/dL 74-106 [facility] Neutrophils (Bld) [#/Vol] 3.9 10*3/uL 2.0-7.7 [facility] Neutrophils/100 WBC (Bld) 60.0 % 47-70 [facility] Potassium [Moles/Vol] 3.7 mmol/L 3.5-5.1 [facility] Sodium [Moles/Vol] 141 mmol/L 136-145 [facility] WBC (Bld) [#/Vol] 6.5 10*3/uL 4.4-11.0 [facility] Blood erythrocytes count (nu mber/volume)Ordered By: Yesika Faust on 02-17-2023 RBC (Bld) [#/Vol] 4.33 10*6/uL 4.2-5.4 [facility] Blood hemoglobin measurement (mass/volume)Ordered By: Yesika Faust on 02-17-2023 Hemoglobin (Bld) [Mass/Vol] 11.4 g/dL 12.0-15.0 [facility] Blood lymphocytes/100 leukoc ytesOrdered By: Yesika Faust on 02-17-2023 Lymphocytes/100 WBC (Bld) 25.9 % 19-41 [facility] Blood monocytes/100 leukocyt esOrdered By: Jedkeomacarena Faust on 02-17-2023 Monocytes/100 WBC (Bld) 10.2 % 0-10 [facility] Blood platelet mean volumeOr dered By: Yesika Faust on 02-17-2023 Platelet mean volume (Bld) [Entitic vol] 10.6 fL 6.2-12.0 [facility] Determination of erythrocyte mean corpuscular volume (MCV)Ordered By: Yesika Faust on 02-17-2023 MCV (RBC) [Entitic vol] 86.4 fL 81-99 [facility] Hematocrit Auto (Bld) [Volum e fraction]Ordered By: Yesika Faust on 02-17-2023 Hematocrit (Bld) [Volume fraction] 37.4 % 37-47 [facility] Laboratory - Chemistry and C hemistry - challengeOrdered By: Yesika Faust on 02-17-2023 CO2 [Moles/Vol] 28.0 mmol/L 21.0-32.0 [facility] Urea nitrogen/Creatinine [Mass ratio] 16.1 mg/mg 10-20 [facility] - Hematology and Cell countsOrdered By: Yesika Faust on 02-17-2023 Erythrocyte distribution width (RBC) [Entitic vol] 56.0 fL 35.1-43.9 [facility] Erythrocyte distribution width (RBC) [Ratio] 17.5 % 11.6-14.6 [facility] Immature granulocytes/100 WBC (Bld) 0.300 % 0.0-0.9 [facility] Comment on above: IG% - Immature Granu locytes (promyelocytes, myelocytes and metamyelocytes) > 1% indicates that a LEFT SHIFT is Present. MCH (RBC) [Entitic mass] 26.3 pg 27.0-32.0 [facility] Nucleated RBC/100 WBC (Bld) [Ratio] 0 % 0-5 [facility] MCHC Auto (RBC) [Mass/Vol]Or dered By: Yesika Faust on 02-17-2023 MCHC (RBC) [Mass/Vol] 30.5 g/dL 32-36 [facility] No Panel InformationOrdered By: Yesika Faust on 02-17-2023 Estimated GFR (MDRD) Amer 106 mL/min >60 [facility] Comment on above: GFR Calc Estimated GFR (MDRD) Non-Af Amer 87 mL/min >60 [facility] Comment on above: Non- GFR Calc Platelets bldOrdered By: Randall Faust on 02-17-2023 Platelets (Bld) [#/Vol] 228 10*3/uL 150-450 [facility] Serum or plasma calcium madi urement (mass/volume)Ordered By: Yesika Faust on 02-17-2023 Calcium [Mass/Vol] 8.8 mg/dL 8.5-10.1 [facility] Serum or plasma creatinine m easurement [...] 02-17-2023 Urea nitrogen [Mass/Vol] 11 mg/dL 7-18 [facility] Thin prep Papanicolaou smear with manual screeningOrdered By: Yesika Faust on 02-17-2023 Thin prep Papanicolaou smear with manual screening 4 5-15 [facility] Basophil percentageOrdered B y: Cl Tsang on 01-12-2023 Cholesterol [Mass/Vol] 112 mg/dL <200 [facility] Comment on above: <200 mg/dL Desirable 200-240 mg/dL Borderline >240 mg/dL High Risk Triglyceride [Mass/Vol] 110 mg/dL <199 [facility] Comment on above: The drugs N-Acetylcy steine and Metamizole may falsely depress this assay.Serum Triglycerides Reference Interval Normal <150 mg/dL Borderline high 150 - 199 mg/dL High 200 - 499 mg/dL Very High > or = 500 mg/dL Serum or plasma cholesterol in HDL measurement (mass/volume)Ordered By: Cl Tsang on 01-12-2023 Cholesterol in HDL [Mass/Vol] 50 mg/dL >40 [facility] Comment on above: The drugs N-Acetylcy steine and Metamizole may falsely depress this assay. Reference Range HDL <40 mg/dL Low HDL Cholesterol HDL >or= 60 mg/dL High HDL Cholesterol Serum or plasma cholesterol in VLDL measurement (mass/volume)Ordered By: Cl Tsang on 01-12-2023 Cholesterol in VLDL [Mass/Vol] 22 mg/dL 5-40 [facility] Serum or plasma low density lipoprotein (LDL) cholesterol measurement (mass/volume)Ordered By: Cl Tsang on 01-12-2023 Cholesterol in LDL [Mass/Vol] 40 mg/dL 0-130 [facility] Basophil percentageOrdered B y: Yesika Faust on 11-18-2022 Chloride [Moles/Vol] 108 mmol/L 98-107 [facility] Glucose [Mass/Vol] 114 mg/dL 74-106 [facility] Comment on above: Fasting Glucose resu lt from 100 to 125 mg/dL suggests IMPAIRED HOMEOSTASIS per A.D.A. criteria. Potassium [Moles/Vol] 4.1 mmol/L 3.5-5.1 [facility] Sodium [Moles/Vol] 142 mmol/L 136-145 [facility] WBC (Bld) [#/Vol] 5.6 10*3/uL 4.4-11.0 [facility] Blood erythrocytes count (nu mber/volume)Ordered By: Yesika Faust on 11-18-2022 RBC (Bld) [#/Vol] 3.89 10*6/uL 4.2-5.4 [facility] Blood hemoglobin measurement (mass/volume)Ordered By: Yesika Faust on 11-18-2022 Hemoglobin (Bld) [Mass/Vol] 10.5 g/dL 12.0-15.0 [facility] Blood platelet mean volumeOr dered By: Yesika Faust on 11-18-2022 Platelet mean volume (Bld) [Entitic vol] 10.7 fL 6.2-12.0 [facility] Determination of erythrocyte mean corpuscular volume (MCV)Ordered By: Yesika Faust on 11-18-2022 MCV (RBC) [Entitic vol] 88.4 fL 81-99 [facility] Hematocrit Auto (Bld) [Volum e fraction]Ordered By: Yesika Faust on 11-18-2022 Hematocrit (Bld) [Volume fraction] 34.4 % 37-47 [facility] Laboratory - Chemistry and C hemistry - challengeOrdered By: Yesika Faust on 11-18-2022 CO2 [Moles/Vol] 27.0 mmol/L 21.0-32.0 [facility] Urea nitrogen/Creatinine [Mass ratio] 18.9 mg/mg 10-20 [facility] - Hematology and Cell countsOrdered By: Yesika Faust on 11-18-2022 Erythrocyte distribution width (RBC) [Entitic vol] 43.8 fL 35.1-43.9 [facility] Erythrocyte distribution width (RBC) [Ratio] 13.4 % 11.6-14.6 [facility] MCH (RBC) [Entitic mass] 27.0 pg 27.0-32.0 [facility] MCHC Auto (RBC) [Mass/Vol]Or dered By: Yesika Faust on 11-18-2022 MCHC (RBC) [Mass/Vol] 30.5 g/dL 32-36 [facility] No Panel InformationOrdered By: Yesika Faust on 11-18-2022 Estimated GFR (MDRD) Amer 115 mL/min >60 [facility] Comment on above: GFR Calc Estimated GFR (MDRD) Non-Af Amer 95 mL/min >60 [facility] Comment on above: Non- GFR Calc Platelets bldOrdered By: Randall montsemacarena Faust on 11-18-2022 Platelets (Bld) [#/Vol] 247 10*3/uL 150-450 [facility] Serum or plasma calcium madi urement (mass/volume)Ordered By: Yesika Faust on 11-18-2022 Calcium [Mass/Vol] 9.1 mg/dL 8.5-10.1 [facility] Serum or plasma creatinine m easurement [...] 11-18-2022 Urea nitrogen [Mass/Vol] 12 mg/dL 7-18 [facility] Thin prep Papanicolaou smear with manual screeningOrdered By: Yesika Faust on 11-18-2022 Thin prep Papanicolaou smear with manual screening 7 5-15 [facility] Absolute lymphocyte countOrd ered By: Yesika Faust on 08-19-2022 Lymphocytes Auto (Unsp spec) [#/Vol] 1.60 10*3/uL 0.83-4.51 [facility] Basophil percentageOrdered B y: Yesika Faust on 08-19-2022 Basophils/100 WBC (Bld) 0.4 % 0-1 [facility] Chloride [Moles/Vol] 105 mmol/L 98-107 [facility] Eosinophils/100 WBC (Bld) 0.2 % 0-5 [facility] Glucose [Mass/Vol] 96 mg/dL 74-106 [facility] Neutrophils (Bld) [#/Vol] 3.3 10*3/uL 2.0-7.7 [facility] Neutrophils/100 WBC (Bld) 59.4 % 47-70 [facility] Potassium [Moles/Vol] 4.0 mmol/L 3.5-5.1 [facility] Sodium [Moles/Vol] 141 mmol/L 136-145 [facility] WBC (Bld) [#/Vol] 5.6 10*3/uL 4.4-11.0 [facility] Blood erythrocytes count (nu mber/volume)Ordered By: Yesika Faust on 08-19-2022 RBC (Bld) [#/Vol] 4.44 10*6/uL 4.2-5.4 [facility] Blood hemoglobin measurement (mass/volume)Ordered By: Yesika Faust on 08-19-2022 Hemoglobin (Bld) [Mass/Vol] 13.0 g/dL 12.0-15.0 [facility] Blood lymphocytes/100 leukoc ytesOrdered By: Yesika Faust on 08-19-2022 Lymphocytes/100 WBC (Bld) 28.8 % 19-41 [facility] Blood monocytes/100 leukocyt esOrdered By: Yesika Faust on 08-19-2022 Monocytes/100 WBC (Bld) 11.0 % 0-10 [facility] Blood platelet mean volumeOr dered By: Yesika Faust on 08-19-2022 Platelet mean volume (Bld) [Entitic vol] 10.7 fL 6.2-12.0 [facility] Determination of erythrocyte mean corpuscular volume (MCV)Ordered By: Yesika Faust on 08-19-2022 MCV (RBC) [Entitic vol] 93.0 fL 81-99 [facility] Hematocrit Auto (Bld) [Volum e fraction]Ordered By: Yesika Faust on 08-19-2022 Hematocrit (Bld) [Volume fraction] 41.3 % 37-47 [facility] - Chemistry and C hemistry - challengeOrdered By: Yesika Faust on 08-19-2022 CO2 [Moles/Vol] 29.0 mmol/L 21.0-32.0 [facility] Urea nitrogen/Creatinine [Mass ratio] 19.4 mg/mg 10-20 [facility] - Hematology and Cell countsOrdered By: Yesika Faust on 08-19-2022 Erythrocyte distribution width (RBC) [Entitic vol] 44.3 fL 35.1-43.9 [facility] Erythrocyte distribution width (RBC) [Ratio] 12.9 % 11.6-14.6 [facility] Immature granulocytes/100 WBC (Bld) 0.200 % 0.0-0.9 [facility] Comment on above: IG% - Immature Granu locytes (promyelocytes, myelocytes and metamyelocytes) > 1% indicates that a LEFT SHIFT is Present. MCH (RBC) [Entitic mass] 29.3 pg 27.0-32.0 [facility] Nucleated RBC/100 WBC (Bld) [Ratio] 0 % 0-5 [facility] MCHC Auto (RBC) [Mass/Vol]Or dered By: Yesika Faust on 08-19-2022 MCHC (RBC) [Mass/Vol] 31.5 g/dL 32-36 [facility] No Panel InformationOrdered By: Yesika Faust on 08-19-2022 Estimated GFR (MDRD) Amer 99 mL/min >60 [facility] Comment on above: GFR Calc Estimated GFR (MDRD) Non-Af Amer 82 mL/min >60 [facility] Comment on above: Non- GFR Calc Platelets bldOrdered By: Randall Faust on 08-19-2022 Platelets (Bld) [#/Vol] 216 10*3/uL 150-450 [facility] Serum or plasma calcium madi urement (mass/volume)Ordered By: Yesika Faust on 08-19-2022 Calcium [Mass/Vol] 9.4 mg/dL 8.5-10.1 [facility] Serum or plasma creatinine m easurement [...] 08-19-2022 Urea nitrogen [Mass/Vol] 14 mg/dL 7-18 [facility] Thin prep Papanicolaou smear with manual screeningOrdered By: [facility]arena Scoutkathierafaela on 08-19-2022 Thin prep Papanicolaou smear with manual screening 7 5-15 [facility] Absolute lymphocyte counton 05-20-2022 Lymphocytes Auto (Unsp spec) [#/Vol] 1.88 10*3/uL 0.83-4.51 [facility] Work Phone: Basophil percentageon 2021 Basophils/100 WBC (Bld) 0.7 % 0-1 [facility] Work Phone: Chloride [Moles/Vol] 111 mmol/L 98-107 [facility] Work Phone: Eosinophils/100 WBC (Bld) 4.0 % 0-5 [facility] Work Phone: Glucose [Mass/Vol] 94 mg/dL 74-106 [facility] Work Phone: Neutrophils (Bld) [#/Vol] 3.3 10*3/uL 2.0-7.7 [facility] Work Phone: Neutrophils/100 WBC (Bld) 55.6 % 47-70 [facility] Work Phone: Potassium [Moles/Vol] 4.1 mmol/L 3.5-5.1 [facility] Work Phone: Sodium [Moles/Vol] 139 mmol/L 136-145 [facility] Work Phone: WBC (Bld) [#/Vol] 6.0 10*3/uL 4.4-11.0 [facility] Work Phone: Blood erythrocytes count (nu mber/volume)on 05-20-2022 RBC (Bld) [#/Vol] 4.01 10*6/uL 4.2-5.4 [facility] Work Phone: Blood hemoglobin measurement (mass/volume)on 05-20-2022 Hemoglobin (Bld) [Mass/Vol] 13.0 g/dL 12.0-15.0 [facility] Work Phone: Blood lymphocytes/100 leukoc yteson 05-20-2022 Lymphocytes/100 WBC (Bld) 31.5 % 19-41 [facility] Work Phone: Blood monocytes/100 leukocyt eson 05-20-2022 Monocytes/100 WBC (Bld) 8.0 % 0-10 [facility] Work Phone: Blood platelet mean volumeon 05-20-2022 Platelet mean volume (Bld) [Entitic vol] 10.3 fL 6.2-12.0 [facility] Work Phone: Determination of erythrocyte mean corpuscular volume (MCV)on 05-20-2022 MCV (RBC) [Entitic vol] 99.3 fL 81-99 [facility] Work Phone: Hematocrit Auto (Bld) [Volum e fraction]on 05-20-2022 Hematocrit (Bld) [Volume fraction] 39.8 % 37-47 [facility] Work Phone: Laboratory - Chemistry and C hemistry - challengeon 05-20-2022 CO2 [Moles/Vol] 17.0 mmol/L 21.0-32.0 [facility] Work Phone: Urea nitrogen/Creatinine [Mass ratio] 13.2 mg/mg 10-20 [facility] Work Phone: Laboratory - Hematology and Cell countson 05-20-2022 Erythrocyte distribution width (RBC) [Entitic vol] 52.0 fL 35.1-43.9 [facility] Work Phone: Erythrocyte distribution width (RBC) [Ratio] 14.4 % 11.6-14.6 [facility] Work Phone: Immature granulocytes/100 WBC (Bld) 0.200 % 0.0-0.9 [facility] Work Phone: Comment on above: IG% - Immature Granu locytes (promyelocytes, myelocytes and metamyelocytes) > 1% indicates that a LEFT SHIFT is Present. MCH (RBC) [Entitic mass] 32.4 pg 27.0-32.0 [facility] Work Phone: Nucleated RBC/100 WBC (Bld) [Ratio] 0 % 0-5 [facility] Work Phone: MCHC Auto (RBC) [Mass/Vol]on 05-20-2022 MCHC (RBC) [Mass/Vol] 32.7 g/dL 32-36 [facility] Work Phone: No Panel Informationon 05-20 Estimated GFR (MDRD) Amer 94 mL/min >60 [facility] Work Phone: Comment on above: GFR Calc Estimated GFR (MDRD) Non-Af Amer 77 mL/min >60 [facility] Work Phone: Comment on above: Non- GFR Calc Platelets bldon 05-20-2022 Platelets (Bld) [#/Vol] 188 10*3/uL 150-450 [facility] Work Phone: Serum or plasma calcium madi urement (mass/volume)on 05-20-2022 Calcium [Mass/Vol] 9.5 mg/dL 8.5-10.1 [facility] Work Phone: Serum or plasma creatinine m easurement (mass/volume)on 05-20-2022 Creatinine [Mass/Vol] 0.76 mg/dL 0.55-1.02 [facility] Work Phone: Comment on above: The validity of the calculated GFR & GFRAA in patients over 70 years has not been determined. Clinical correlation is essential. Serum or plasma urea nitroge n measurement (mass/volume)on 05-20-2022 Urea nitrogen [Mass/Vol] 10 mg/dL 7-18 [facility] Work Phone: Thin prep Papanicolaou smear with manual screeningon 05-20-2022 Thin prep Papanicolaou smear with manual screening 11 5-15 [facility] Work Phone: Bilirubin Test strip Ql (U)o n 03-07-2022 Bilirubin Ql (U) Negative Negative [facility] Work Phone: Ketones Test strip Ql (U)on 03-07-2022 Ketones Ql (U) Negative Negative [facility] Work Phone: Nitrite Test strip Ql (U)on 03-07-2022 Nitrite Ql (U) Positive Negative [facility] Work Phone: Protein Test strip Ql (U)on 03-07-2022 Protein Ql (U) Negative Negative [facility] Work Phone: Urine blood detectionon 02-13 RBC Ql (U) 25 /ul Negative [facility] Work Phone: Urine clarityon 03-07-2022 Clarity (U) Clear Clear [facility] Work Phone: Urine color determinationon 03-07-2022 Color (U) Yellow Yellow [facility] Work Phone: Urine glucose detectionon Glucose Ql (U) Normal mg/dl Normal [facility] Work Phone: Urine leukocyte esterase det ection by dipstickon 03-07-2022 Leukocyte esterase Test strip Ql (U) 500 /ul Negative [facility] Work Phone: Urine pHon 03-07-2022 pH (U) 6.5 [pH] 5.0 - 8.0 [facility] Work Phone: Urine specific gravity measu rementon 03-07-2022 Specific gravity (U) [Rel density] 1.010 1.002-1.03 0 [facility] Work Phone: Urobilinogen Auto test strip Ql (U)on 03-07-2022 Urobilinogen Ql (U) Normal mg/dl [facility]: Basophil percentageon 2021 Cholesterol [Mass/Vol] 117 mg/dL <200 [facility] Work Phone: Comment on above: <200 mg/dL Desirable 200-240 mg/dL Borderline >240 mg/dL High Risk Triglyceride [Mass/Vol] 118 mg/dL [facility] Work Phone: Comment on above: The drugs N-Acetylcy steine and Metamizole may falsely depress this assay.Serum Triglycerides Reference Interval Normal <150 mg/dL Borderline high 150 - 199 mg/dL High 200 - 499 mg/dL Very High > or = 500 mg/dL Serum or plasma cholesterol in HDL measurement (mass/volume)on 01-13-2022 Cholesterol in HDL [Mass/Vol] 44 mg/dL [facility] Work Phone: Comment on above: The drugs N-Acetylcy steine and Metamizole may falsely depress this assay. Reference Range HDL <40 mg/dL Low HDL Cholesterol HDL >or= 60 mg/dL High HDL Cholesterol Serum or plasma cholesterol in VLDL measurement (mass/volume)on 01-13-2022 Cholesterol in VLDL [Mass/Vol] 24 mg/dL 5-40 [facility] Work Phone: Serum or plasma low density lipoprotein (LDL) cholesterol measurement (mass/volume)on 01-13-2022 Cholesterol in LDL [Mass/Vol] 49 mg/dL 0-130 [facility] Work Phone: Absolute lymphocyte counton 11-12-2021 Lymphocytes Auto (Unsp spec) [#/Vol] 1.48 10*3/uL 0.83-4.51 [facility] Work Phone: Basophil percentageon 2021 Basophils/100 WBC (Bld) 0.5 % 0-1 [facility] Work Phone: Chloride [Moles/Vol] 108 mmol/L 98-107 [facility] Work Phone: Eosinophils/100 WBC (Bld) 1.4 % 0-5 [facility] Work Phone: Glucose [Mass/Vol] 105 mg/dL 74-106 [facility] Work Phone: Comment on above: Fasting Glucose resu lt from 100 to 125 mg/dL suggests IMPAIRED HOMEOSTASIS per A.D.A. criteria. Neutrophils (Bld) [#/Vol] 3.5 10*3/uL 2.0-7.7 [facility] Work Phone: Neutrophils/100 WBC (Bld) 61.7 % 47-70 [facility] Work Phone: Potassium [Moles/Vol] 3.8 mmol/L 3.5-5.1 [facility] Work Phone: Sodium [Moles/Vol] 139 mmol/L 136-145 [facility] Work Phone: WBC (Bld) [#/Vol] 5.7 10*3/uL 4.4-11.0 [facility] Work Phone: Blood erythrocytes count (nu mber/volume)on 11-12-2021 RBC (Bld) [#/Vol] 4.44 10*6/uL 4.2-5.4 [facility] Work Phone: Blood hemoglobin measurement (mass/volume)on 11-12-2021 Hemoglobin (Bld) [Mass/Vol] 13.7 g/dL 12.0-15.0 [facility] Work Phone: Blood lymphocytes/100 leukoc yteson 11-12-2021 Lymphocytes/100 WBC (Bld) 26.0 % 19-41 [facility] Work Phone: Blood monocytes/100 leukocyt eson 11-12-2021 Monocytes/100 WBC (Bld) 10.0 % 0-10 [facility] Work Phone: Blood platelet mean volumeon 11-12-2021 Platelet mean volume (Bld) [Entitic vol] 10.2 fL 6.2-12.0 [facility] Work Phone: Determination of erythrocyte mean corpuscular volume (MCV)on 11-12-2021 MCV (RBC) [Entitic vol] 89.4 fL 81-99 [facility] Work Phone: Hematocrit Auto (Bld) [Volum e fraction]on 11-12-2021 Hematocrit (Bld) [Volume fraction] 39.7 % 37-47 [facility] Work Phone: Laboratory - Chemistry and C hemistry - challengeon 11-12-2021 CO2 [Moles/Vol] 29.0 mmol/L 21.0-32.0 [facility] Work Phone: Urea nitrogen/Creatinine [Mass ratio] 16.9 mg/mg 10-20 [facility] Work Phone: Laboratory - Hematology and Cell countson 11-12-2021 Erythrocyte distribution width (RBC) [Entitic vol] 41.8 fL 35.1-43.9 [facility] Work Phone: Erythrocyte distribution width (RBC) [Ratio] 12.8 % 11.6-14.6 [facility] Work Phone: Immature granulocytes/100 WBC (Bld) 0.400 % 0.0-0.9 [facility] Work Phone: Comment on above: IG% - Immature Granu locytes (promyelocytes, myelocytes and metamyelocytes) > 1% indicates that a LEFT SHIFT is Present. MCH (RBC) [Entitic mass] 30.9 pg 27.0-32.0 [facility] Work Phone: Nucleated RBC/100 WBC (Bld) [Ratio] 0 % 0-5 [facility] Work Phone: MCHC Auto (RBC) [Mass/Vol]on 11-12-2021 MCHC (RBC) [Mass/Vol] 34.5 g/dL 32-36 [facility] Work Phone: No Panel Informationon 11-12 Estimated GFR (MDRD) Amer 101 mL/min >60 [facility] Work Phone: Comment on above: GFR Calc Estimated GFR (MDRD) Non-Af Amer 84 mL/min >60 [facility] Work Phone: Comment on above: Non- GFR Calc Platelets bldon 11-12-2021 Platelets (Bld) [#/Vol] 194 10*3/uL 150-450 [facility] Work Phone: Serum or plasma calcium madi urement (mass/volume)on 11-12-2021 Calcium [Mass/Vol] 9.5 mg/dL 8.5-10.1 [facility] Work Phone: Serum or plasma creatinine m easurement (mass/volume)on 11-12-2021 Creatinine [Mass/Vol] 0.71 mg/dL 0.55-1.02 [facility] Work Phone: Comment on above: The validity of the calculated GFR & GFRAA in patients over 70 years has not been determined. Clinical correlation is essential. Serum or plasma urea nitroge n measurement (mass/volume)on 11-12-2021 Urea nitrogen [Mass/Vol] 12 mg/dL 7-18 [facility] Work Phone: Thin prep Papanicolaou smear with manual screeningon 11-12-2021 Thin prep Papanicolaou smear with manual screening 2 5-15 [facility] Work Phone: XR SPINE CERVICAL 1 [...] 07/04/2019 10:22:47 AM Ordering Provider:Dc Mota Normal [facility] ([place]) .GFRon 06-09-2019 GFR >60 Normal [facility] ([place] Comment on above: Result Comment: GFR Population [...] #### C BC, DIFF, MORPH, BMP, GFR ####[place] [address] GFR Non- >60 Normal [facility] ([place] Comment on above: Result Comment: GFR Population [...] #### C BC, DIFF, MORPH, BMP, GFR ####[address] [address] .Manual Diffon 06-09-2019 Basophil %, Manual 1.0 % Normal 0.0-2.5 [facility] ([place]) Comment on above: Performed By: #### C BC, DIFF, MORPH, BMP, GFR ####[place] [address] Basophil, Abs Manual 0.08 10 3/mcL Normal 0.00-0.27 A [facility] ([place]) Comment on above: Performed By: #### C BC, DIFF, MORPH, BMP, GFR ####[address] [address] Cells Counted 100 Normal [facility] ([place]) Comment on above: Performed By: #### C BC, DIFF, MORPH, BMP, GFR ####[address] [address] Eosinophil %, Manual 2.0 % Normal 0.0-6.0 [facility] ([place] Comment on above: Performed By: #### C BC, DIFF, MORPH, BMP, GFR ####[address] [address] Eosinophil, Abs Manual 0.16 10 3/mcL Normal 0.00-0.65 [facility] ([place] Comment on above: Performed By: #### C BC, DIFF, MORPH, BMP, GFR ####[address] [address] Lymphocyte %, Manual 9.0 % Low 20.0-40.0 [facility] ([place] Comment on above: Performed By: #### C BC, DIFF, MORPH, BMP, GFR ####[address] [address] Lymphocyte, Abs Manual 0.72 10 3/mcL Low 0.90-4.32 [facility] ([place] Comment on above: Performed By: #### C BC, DIFF, MORPH, BMP, GFR ####[address] [address] Monocyte %, Manual 6.0 % Normal 2.0-13.0 [facility] ([place]) Comment on above: Performed By: #### C BC, DIFF, MORPH, BMP, GFR ####[address] [address] Monocyte, Abs Manual 0.48 10 3/mcL Normal 0.09-1.40 A [facility] ([place] Comment on above: Performed By: #### C BC, DIFF, MORPH, BMP, GFR ####[address] [address] Myelocyte 1.0 % Normal [facility] ([place] Comment on above: Performed By: #### C BC, DIFF, MORPH, BMP, GFR ####[place] [address] Neutrophil %, Manual 81.0 % High 50.0-75.0 [facility] ([place] Comment on above: Performed By: #### C BC, DIFF, MORPH, BMP, GFR ####[place] [address] Neutrophil, Abs Manual 6.48 10 3/mcL Normal 2.25-8.10 [facility] ([place] Comment on above: Performed By: #### C BC, DIFF, MORPH, BMP, GFR ####[place] [address] .Morphon 06-09-2019 Platelets (Bld) [#/Vol] Normal Normal [facility] ([place] Comment on above: Performed By: #### C BC, DIFF, MORPH, BMP, GFR ####[place] [address] Polychrom Slight Normal [facility] ([place] Comment on above: Performed By: #### C BC, DIFF, MORPH, BMP, GFR ####[place] [address] BMPon 06-09-2019 Creatinine [Mass/Vol] 0.75 mg/dL Normal 0.50-1.20 [facility] ([place] Comment on above: Performed By: #### C BC, DIFF, MORPH, BMP, GFR ####[place] [address] Urea nitrogen/Creatinine [Mass ratio] 18.7 ratio Normal 10.0-22.0 [facility] ([place] Comment on above: Performed By: #### C BC, DIFF, MORPH, BMP, GFR ####[place] [address] Calcium [Mass/Vol] 8.2 mg/dL Low 8.4-10.1 [facility] ([place] Comment on above: Performed By: #### C BC, DIFF, MORPH, BMP, GFR ####[address] [address] Chloride [Moles/Vol] 106 mmol/L Normal 98-110 [facility] ([place] Comment on above: Performed By: #### C BC, DIFF, MORPH, BMP, GFR ####[address] [address] CO2 [Moles/Vol] 18 mmol/L Low 22-32 [facility] ([place]) Comment on above: Performed By: #### C BC, DIFF, MORPH, BMP, GFR ####[address] [address] Electrolyte Balance 16.0 mEq/L High 4.0-15.0 [facility] ([place] Comment on above: Performed By: #### C BC, DIFF, MORPH, BMP, GFR ####[address] [address] Glucose [Mass/Vol] 109 mg/dL Normal 82-115 [facility] ([place]) Comment on above: Performed By: #### C BC, DIFF, MORPH, BMP, GFR ####[place] [address] Potassium [Moles/Vol] 3.8 mmol/L Normal 3.5-5.0 [facility] ([place] Comment on above: Performed By: #### C BC, DIFF, MORPH, BMP, GFR ####[address] [address] Sodium [Moles/Vol] 140 mmol/L Normal 136-145 [facility] ([place]) Comment on above: Performed By: #### C BC, DIFF, MORPH, BMP, GFR ####[address] [address] Urea nitrogen [Mass/Vol] 14.0 mg/dL Normal 8.0-22.0 [facility] ([place] Comment on above: Performed By: #### C BC, DIFF, MORPH, BMP, GFR ####[address] [address] CBCon 06-09-2019 Platelet mean volume (Bld) [Entitic vol] 8.6 fL Normal 6.6-10.5 [facility] ([place] Comment on above: Performed By: #### C BC, DIFF, MORPH, BMP, GFR ####[address] [address] Platelets (Bld) [#/Vol] 229 10 3/mcL Normal 150-450 [facility] ([place] Comment on above: Performed By: #### C BC, DIFF, MORPH, BMP, GFR ####[address] [address] WBC (Bld) [#/Vol] 8.00 10 3/mcL Normal 4.50-10.80 [facility] ([place]) Comment on above: Performed By: #### C BC, DIFF, MORPH, BMP, GFR ####[address] [address] Erythrocyte distribution width (RBC) [Ratio] 13.8 % Normal 11.5-15.5 [facility] ([place]) Comment on above: Performed By: #### C BC, DIFF, MORPH, BMP, GFR ####[place] [address] Hematocrit (Bld) [Volume fraction] 26.6 % Low 34.0-46.0 [facility] ([place] Comment on above: Performed By: #### C BC, DIFF, MORPH, BMP, GFR ####[address] [address] Hemoglobin (Bld) [Mass/Vol] 9.1 G/dL Low 12.0-16.0 [facility] ([place] Comment on above: Performed By: #### C BC, DIFF, MORPH, BMP, GFR ####[address] [address] MCH (RBC) [Entitic mass] 30.1 pg Normal 27.0-33.0 [facility] ([place]) Comment on above: Performed By: #### C BC, DIFF, MORPH, BMP, GFR ####[address] [address] MCHC (RBC) [Mass/Vol] 34.3 G/dL Normal 32.0-36.0 [facility] ([place] Comment on above: Performed By: #### C BC, DIFF, MORPH, BMP, GFR ####[address] [address] MCV (RBC) [Entitic vol] 87.9 fL Normal 80.0-99.0 [facility] ([place]) Comment on above: Performed By: #### C BC, DIFF, MORPH, BMP, GFR ####[address] [address] RBC (Bld) [#/Vol] 3.03 10 6/mcL Low 4.10-5.30 [facility] ([place] Comment on above: Performed By: #### C BC, DIFF, MORPH, BMP, GFR ####[address] [address] [address] XR CHEST 2 VIEWSon 9 XR CHEST [...] AM Sign Date: 06/09/2019 7:22:18 AM Normal [facility] ([place]) .GFRon 06-08-2019 GFR >60 Normal [facility] ([place]) Comment on above: Result Comment: GFR Population [...] meters Performed By: #### B MP, GFR ####[address] [address] GFR Non- >60 Normal [facility] ([place]) Comment on above: Result Comment: GFR Population [...] meters Performed By: #### B MP, GFR ####[address] [address] BMPon 06-08-2019 Creatinine [Mass/Vol] 0.60 mg/dL Normal 0.50-1.20 [facility] ([place] Comment on above: Performed By: #### B MP, GFR ####[address] [address] Urea nitrogen/Creatinine [Mass ratio] 21.7 ratio Normal 10.0-22.0 [facility] ([place]) Comment on above: Performed By: #### B MP, GFR ####[address] [address] Calcium [Mass/Vol] 7.9 mg/dL Low 8.4-10.1 [facility] ([place]) Comment on above: Performed By: #### B MP, GFR ####[address] [address] Chloride [Moles/Vol] 107 mmol/L Normal 98-110 [facility] ([place] Comment on above: Performed By: #### B MP, GFR ####[address] [address] CO2 [Moles/Vol] 28 mmol/L Normal 22-32 [facility] ([place] Comment on above: Performed By: #### B MP, GFR ####[address] [address] Electrolyte Balance 8.0 mEq/L Normal 4.0-15.0 [facility] ([place] Comment on above: Performed By: #### B MP, GFR ####[address] [address] Glucose [Mass/Vol] 115 mg/dL Normal 82-115 [facility] ([place]) Comment on above: Performed By: #### B MP, GFR ####[address] [address] Potassium [Moles/Vol] 3.7 mmol/L Normal 3.5-5.0 [facility] ([place] Comment on above: Performed By: #### B MP, GFR ####[address] [address] Sodium [Moles/Vol] 143 mmol/L Normal 136-145 [facility] ([place] Comment on above: Performed By: #### B MP, GFR ####[address] [address] Urea nitrogen [Mass/Vol] 13.0 mg/dL Normal 8.0-22.0 [facility] ([place] Comment on above: Performed By: #### B MP, GFR ####[address] [address] XR CHEST 2 VIEWSon 9 XR CHEST [...] AM Sign Date: 06/08/2019 6:29:24 AM Normal [facility] ([place]) .Auto Diffon 06-07-2019 Ammonia (P) [Mass/Vol] 0.40 10 3/mcL Normal 0.09-1.40 [facility] ([place] Comment on above: Performed By: #### C BC, ADIFF, ANEU, CMP, GFR ####[address] [address] Basophils (Bld) [#/Vol] 0.00 10 3/mcL Normal 0.00-0.27 [facility] ([place] Comment on above: Performed By: #### C BC, ADIFF, ANEU, CMP, GFR ####[address] [address] Basophils/100 WBC (Bld) 0.4 % Normal 0.0-2.5 [facility] ([place] Comment on above: Performed By: #### C BC, ADIFF, ANEU, CMP, GFR ####[address] [address] Eosinophils (Bld) [#/Vol] 0.30 10 3/mcL Normal 0.00-0.65 [facility] ([place] Comment on above: Performed By: #### C BC, ADIFF, ANEU, CMP, GFR ####[address] [address] Eosinophils/100 WBC (Bld) 6.6 % High 0.0-6.0 [facility] ([place] Comment on above: Performed By: #### C BC, ADIFF, ANEU, CMP, GFR ####[address] [address] Lymphocytes (Bld) [#/Vol] 1.00 10 3/mcL Normal 0.90-4.32 [facility] ([place] Comment on above: Performed By: #### C BC, ADIFF, ANEU, CMP, GFR ####[address] [address] Lymphocytes/100 WBC (Bld) 19.0 % Low 20.0-40.0 [facility] ([place] Comment on above: Performed By: #### C BC, ADIFF, ANEU, CMP, GFR ####[address] [address] Monocytes/100 WBC (Bld) 7.4 % Normal 2.0-13.0 [facility] ([place] Comment on above: Performed By: #### C BC, ADIFF, ANEU, CMP, GFR ####[address] [address] Neutrophils/100 WBC (Bld) 66.6 % Normal 50.0-75.0 [facility] ([place] Comment on above: Performed By: #### C BC, ADIFF, ANEU, CMP, GFR ####[address] [address] Ammonia (P) [Mass/Vol] 0.50 10 3/mcL Normal 0.09-1.40 [facility] ([place] Comment on above: Performed By: #### C BC, ADIFF, ANEU, BMP, GFR ####[address] [address] Basophils (Bld) [#/Vol] 0.00 10 3/mcL Normal 0.00-0.27 [facility] ([place] Comment on above: Performed By: #### C BC, ADIFF, ANEU, BMP, GFR ####[address] [address] Basophils/100 WBC (Bld) 0.7 % Normal 0.0-2.5 [facility] ([place] Comment on above: Performed By: #### C BC, ADIFF, ANEU, BMP, GFR ####[address] [address] Eosinophils (Bld) [#/Vol] 0.10 10 3/mcL Normal 0.00-0.65 [facility] ([place] Comment on above: Performed By: #### C BC, ADIFF, ANEU, BMP, GFR ####[address] [address] Eosinophils/100 WBC (Bld) 1.8 % Normal 0.0-6.0 [facility] ([place] Comment on above: Performed By: #### C BC, ADIFF, ANEU, BMP, GFR ####[address] [address] Lymphocytes (Bld) [#/Vol] 2.10 10 3/mcL Normal 0.90-4.32 [facility] ([place] Comment on above: Performed By: #### C BC, ADIFF, ANEU, BMP, GFR ####[address] [address] Lymphocytes/100 WBC (Bld) 32.8 % Normal 20.0-40.0 [facility] ([place] Comment on above: Performed By: #### C BC, ADIFF, ANEU, BMP, GFR ####[address] [address] Monocytes/100 WBC (Bld) 7.1 % Normal 2.0-13.0 [facility] ([place] Comment on above: Performed By: #### C BC, ADIFF, ANEU, BMP, GFR ####[address] [address] Neutrophils/100 WBC (Bld) 57.6 % Normal 50.0-75.0 [facility] ([place] Comment on above: Performed By: #### C BC, ADIFF, ANEU, BMP, GFR ####[address] [address] Ammonia (P) [Mass/Vol] 0.60 10 3/mcL Normal 0.09-1.40 [facility] ([place]) Comment on above: Performed By: #### C BC, ADIFF, ANEU #### [address] [address] #### BMP, GFR #### [address] [address] Basophils (Bld) [#/Vol] 0.00 10 3/mcL Normal 0.00-0.27 [facility] ([place]) Comment on above: Performed By: #### C BC, ADIFF, ANEU #### [address] [address] #### BMP, GFR #### [address] [address] Basophils/100 WBC (Bld) 0.5 % Normal 0.0-2.5 [facility] ([place]) Comment on above: Performed By: #### C BC, ADIFF, ANEU #### [address] [address] #### BMP, GFR #### [address] [address] Eosinophils (Bld) [#/Vol] 0.10 10 3/mcL Normal 0.00-0.65 [facility] ([place]) Comment on above: Performed By: #### C BC, ADIFF, ANEU #### [place] [address] #### BMP, GFR #### [address] [address] Eosinophils/100 WBC (Bld) 2.2 % Normal 0.0-6.0 [facility] ([place]) Comment on above: Performed By: #### C BC, ADIFF, ANEU #### [address] [address] #### BMP, GFR #### [address] [address] Lymphocytes (Bld) [#/Vol] 0.80 10 3/mcL Low 0.90-4.32 [facility] ([place]) Comment on above: Performed By: #### C BC, ADIFF, ANEU #### [place] [address] #### BMP, GFR #### [address] [address] Lymphocytes/100 WBC (Bld) 12.3 % Low 20.0-40.0 [facility] ([place]) Comment on above: Performed By: #### C BC, ADIFF, ANEU #### [address] [address] #### BMP, GFR #### [facility] [address] [place] [address] Monocytes/100 WBC (Bld) 9.5 % Normal 2.0-13.0 [facility] ([place]) Comment on above: Performed By: #### C BC, ADIFF, ANEU #### [address] [address] #### BMP, GFR #### [facility] [address] [place] [address] Neutrophils/100 WBC (Bld) 75.5 % High 50.0-75.0 [facility] ([place]) Comment on above: Performed By: #### C BC, ADIFF, ANEU #### [address] [address] #### BMP, GFR #### [facility] [address] [place] [address] .GFRon 06-07-2019 GFR >60 Normal [facility] ([place] Comment on above: Result Comment: GFR Population [...] #### C BC, ADIFF, ANEU, CMP, GFR ####[facility] [place] [address] GFR Non- >60 Normal [facility] ([place]) Comment on above: Result Comment: GFR Population [...] #### C BC, ADIFF, ANEU, CMP, GFR ####[place] [address] [place] [address] GFR >60 Normal [facility] ([place] Comment on above: Result Comment: GFR Population [...] #### C BC, ADIFF, ANEU, BMP, GFR ####[address] [address] GFR Non- >60 Normal [facility] ([place] Comment on above: Result Comment: GFR Population [...] #### C BC, ADIFF, ANEU, BMP, GFR ####[address] [address] GFR Non- >60 Normal [facility] ([place] Comment on above: Result Comment: GFR Population [...] #### C BC, ADIFF, ANEU, BMP, GFR ####[address] [address] GFR >60 Normal [facility] ([place] Comment on above: Result Comment: GFR Population [...] #### C BC, ADIFF, ANEU, BMP, GFR ####[address] [address] .NEUABSon 06-07-2019 Neutrophils (Bld) [#/Vol] 3.40 10 3/mcL Normal 2.25-8.10 [facility] ([place] Comment on above: Performed By: #### C BC, ADIFF, ANEU, CMP, GFR ####[address] [address] Neutrophils (Bld) [#/Vol] 3.80 10 3/mcL Normal 2.25-8.10 [facility] ([place]) Comment on above: Performed By: #### C BC, ADIFF, ANEU, BMP, GFR ####[address] [address] Neutrophils (Bld) [#/Vol] 5.00 10 3/mcL Normal 2.25-8.10 [facility] ([place]) Comment on above: Performed By: #### C BC, ADIFF, ANEU #### [address] [address] #### BMP, GFR #### [address] [address] BMPon 06-07-2019 Creatinine [Mass/Vol] 0.66 mg/dL Normal 0.50-1.20 [facility] ([place] Comment on above: Performed By: #### C BC, ADIFF, ANEU, BMP, GFR ####[address] [address] Urea nitrogen/Creatinine [Mass ratio] 16.7 ratio Normal 10.0-22.0 [facility] ([place]) Comment on above: Performed By: #### C BC, ADIFF, ANEU, BMP, GFR ####[place] [address] Calcium [Mass/Vol] 7.8 mg/dL Low 8.4-10.1 [facility] ([place]) Comment on above: Performed By: #### C BC, ADIFF, ANEU, BMP, GFR ####[address] [address] Chloride [Moles/Vol] 106 mmol/L Normal 98-110 [facility] ([place] Comment on above: Performed By: #### C BC, ADIFF, ANEU, BMP, GFR ####[address] [address] CO2 [Moles/Vol] 26 mmol/L Normal 22-32 [facility] ([place]) Comment on above: Performed By: #### C BC, ADIFF, ANEU, BMP, GFR ####[address] [address] Electrolyte Balance 9.0 mEq/L Normal 4.0-15.0 [facility] ([place] Comment on above: Performed By: #### C BC, ADIFF, ANEU, BMP, GFR ####[address] [address] Glucose [Mass/Vol] 101 mg/dL Normal 82-115 [facility] ([place]) Comment on above: Performed By: #### C BC, ADIFF, ANEU, BMP, GFR ####[address] [address] Potassium [Moles/Vol] 3.6 mmol/L Normal 3.5-5.0 [facility] ([place] Comment on above: Performed By: #### C BC, ADIFF, ANEU, BMP, GFR ####[address] [address] Sodium [Moles/Vol] 141 mmol/L Normal 136-145 [facility] ([place]) Comment on above: Performed By: #### C BC, ADIFF, ANEU, BMP, GFR ####[address] [address] Urea nitrogen [Mass/Vol] 11.0 mg/dL Normal 8.0-22.0 [facility] ([place]) Comment on above: Performed By: #### C BC, ADIFF, ANEU, BMP, GFR ####[address] [address] Calcium [Mass/Vol] 8.4 mg/dL Normal 8.4-10.1 [facility] ([place]) Comment on above: Performed By: #### C BC, ADIFF, ANEU, BMP, GFR ####[address] [address] Chloride [Moles/Vol] 106 mmol/L Normal 98-110 [facility] ([place] Comment on above: Performed By: #### C BC, ADIFF, ANEU, BMP, GFR ####[address] [address] CO2 [Moles/Vol] 25 mmol/L Normal 22-32 [facility] ([place]) Comment on above: Performed By: #### C BC, ADIFF, ANEU, BMP, GFR ####[place] [address] Creatinine [Mass/Vol] 0.73 mg/dL Normal 0.50-1.20 [facility] ([place] Comment on above: Performed By: #### C BC, ADIFF, ANEU, BMP, GFR ####[address] [address] Electrolyte Balance 9.0 mEq/L Normal 4.0-15.0 [facility] ([place] Comment on above: Performed By: #### C BC, ADIFF, ANEU, BMP, GFR ####[place] [address] Glucose [Mass/Vol] 230 mg/dL High 82-115 [facility] ([place]) Comment on above: Performed By: #### C BC, ADIFF, ANEU, BMP, GFR ####[address] [address] Potassium [Moles/Vol] 3.8 mmol/L Normal 3.5-5.0 [facility] ([place] Comment on above: Performed By: #### C BC, ADIFF, ANEU, BMP, GFR ####[address] [address] Sodium [Moles/Vol] 140 mmol/L Normal 136-145 [facility] ([place] Comment on above: Performed By: #### C BC, ADIFF, ANEU, BMP, GFR ####[address] [address] Urea nitrogen [Mass/Vol] 16.0 mg/dL Normal 8.0-22.0 [facility] ([place]) Comment on above: Performed By: #### C BC, ADIFF, ANEU, BMP, GFR ####[place] [address] Urea nitrogen/Creatinine [Mass ratio] 21.9 ratio Normal 10.0-22.0 [facility] ([place]) Comment on above: Performed By: #### C BC, ADIFF, ANEU, BMP, GFR ####[place] [address] CBCon 06-07-2019 Erythrocyte distribution width (RBC) [Ratio] 12.5 % Normal 11.5-15.5 [facility] ([place] Comment on above: Performed By: #### C BC, ADIFF, ANEU, CMP, GFR ####[place] [address] Hematocrit (Bld) [Volume fraction] 35.3 % Low 40.0-52.0 [facility] ([place] Comment on above: Performed By: #### C BC, ADIFF, ANEU, CMP, GFR ####[place] [address] Hemoglobin (Bld) [Mass/Vol] 12.0 G/dL Low 13.0-17.5 [facility] ([place] Comment on above: Performed By: #### C BC, ADIFF, ANEU, CMP, GFR ####[place] [address] MCH (RBC) [Entitic mass] 32.0 pg Normal 27.0-33.0 [facility] ([place] Comment on above: Performed By: #### C BC, ADIFF, ANEU, CMP, GFR ####[place] [address] MCHC (RBC) [Mass/Vol] 34.1 G/dL Normal 32.0-36.0 [facility] ([place] Comment on above: Performed By: #### C BC, ADIFF, ANEU, CMP, GFR ####[place] [address] MCV (RBC) [Entitic vol] 94.1 fL Normal 81.0-100.0 [facility] ([place] Comment on above: Performed By: #### C BC, ADIFF, ANEU, CMP, GFR ####[address] [address] Platelet mean volume (Bld) [Entitic vol] 6.9 fL Normal 6.4-10.5 [facility] ([place] Comment on above: Performed By: #### C BC, ADIFF, ANEU, CMP, GFR ####[address] [address] Platelets (Bld) [#/Vol] 109 10 3/mcL Low 150-450 [facility] ([place] Comment on above: Performed By: #### C BC, ADIFF, ANEU, CMP, GFR ####[address] [address] RBC (Bld) [#/Vol] 3.76 10 6/mcL Low 4.50-6.00 [facility] ([place] Comment on above: Performed By: #### C BC, ADIFF, ANEU, CMP, GFR ####[place] [id number] WBC (Bld) [#/Vol] 5.00 10 3/mcL Normal 4.50-10.80 [facility] ([place] Comment on above: Performed By: #### C BC, ADIFF, ANEU, CMP, GFR ####[place] [address] Erythrocyte distribution width (RBC) [Ratio] 13.6 % Normal 11.5-15.5 [facility] ([place] Comment on above: Performed By: #### C BC, ADIFF, ANEU, BMP, GFR ####[place] [address] Hematocrit (Bld) [Volume fraction] 28.1 % Low 34.0-46.0 [facility] ([place] Comment on above: Performed By: #### C BC, ADIFF, ANEU, BMP, GFR ####[address] [address] Hemoglobin (Bld) [Mass/Vol] 9.4 G/dL Low 12.0-16.0 [facility] ([place] Comment on above: Performed By: #### C BC, ADIFF, ANEU, BMP, GFR ####[address] [address] MCH (RBC) [Entitic mass] 32.4 pg Normal 27.0-33.0 [facility] ([place] Comment on above: Performed By: #### C BC, ADIFF, ANEU, BMP, GFR ####[address] [address] MCHC (RBC) [Mass/Vol] 33.5 G/dL Normal 32.0-36.0 [facility] ([place] Comment on above: Performed By: #### C BC, ADIFF, ANEU, BMP, GFR ####[place] [id number] MCV (RBC) [Entitic vol] 96.7 fL Normal 80.0-99.0 [facility] ([place] Comment on above: Performed By: #### C BC, ADIFF, ANEU, BMP, GFR ####[place] [address] Platelet mean volume (Bld) [Entitic vol] 7.5 fL Normal 6.6-10.5 [facility] ([place] Comment on above: Performed By: #### C BC, ADIFF, ANEU, BMP, GFR ####[place] [id number] Platelets (Bld) [#/Vol] 257 10 3/mcL Normal 150-450 [facility] ([place] Comment on above: Performed By: #### C BC, ADIFF, ANEU, BMP, GFR ####[address] [address] RBC (Bld) [#/Vol] 2.90 10 6/mcL Low 4.10-5.30 [facility] ([place] Comment on above: Performed By: #### C BC, ADIFF, ANEU, BMP, GFR ####[address] [address] WBC (Bld) [#/Vol] 6.50 10 3/mcL Normal 4.50-10.80 [facility] ([place] Comment on above: Performed By: #### C BC, ADIFF, ANEU, BMP, GFR ####[facility] [place] [address] Erythrocyte distribution width (RBC) [Ratio] 13.8 % Normal 11.5-15.5 [facility] ([place] Comment on above: Performed By: #### C BC, ADIFF, ANEU #### [address] [address] #### BMP, GFR #### [address] [address] Hematocrit (Bld) [Volume fraction] 27.4 % Low 34.0-46.0 [facility] ([place]) Comment on above: Performed By: #### C BC, ADIFF, ANEU #### [address] [address] #### BMP, GFR #### [address] [address] Hemoglobin (Bld) [Mass/Vol] 9.4 G/dL Low 12.0-16.0 [facility] ([place]) Comment on above: Performed By: #### C BC, ADIFF, ANEU #### [address] [address] #### BMP, GFR #### [address] [address] MCH (RBC) [Entitic mass] 30.3 pg Normal 27.0-33.0 [facility] ([place] Comment on above: Performed By: #### C BC, ADIFF, ANEU #### [address] [address] #### BMP, GFR #### [address] [address] MCHC (RBC) [Mass/Vol] 34.4 G/dL Normal 32.0-36.0 [facility] ([place]) Comment on above: Performed By: #### C BC, ADIFF, ANEU #### [address] [address] #### BMP, GFR #### [address] [address] MCV (RBC) [Entitic vol] 88.2 fL Normal 80.0-99.0 [facility] ([place] Comment on above: Performed By: #### C STEPHANIE KRISHNAMURTHY, ANEU #### [address] [address] #### BMP, GFR #### [address] [address] Platelet mean volume (Bld) [Entitic vol] 8.1 fL Normal 6.6-10.5 [facility] ([place] Comment on above: Performed By: #### C STEPHANIE KRISHNAMURTHY, ANEU #### [place] [address] #### BMP, GFR #### [address] [address] Platelets (Bld) [#/Vol] 188 10 3/mcL Normal 150-450 [facility] ([place] Comment on above: Performed By: #### C STEPHANIE KRISHNAMURTHY, ANEU #### [place] [address] #### BMP, GFR #### [address] [address] RBC (Bld) [#/Vol] 3.11 10 6/mcL Low 4.10-5.30 [facility] ([place] Comment on above: Performed By: #### C STEPHANIE KRISHNAMURTHY, ANEU #### [place] [address] #### BMP, GFR #### [address] [address] WBC (Bld) [#/Vol] 6.70 10 3/mcL Normal 4.50-10.80 [facility] ([place] Comment on above: Performed By: #### C STEPHANIE KRISHNAMURTHY, ANEU #### [address] [address] #### BMP, GFR #### [address] [address] [facility] Albumin/Globulin [Mass ratio] 0.8 {ratio} Low 0.9-1.6 [facility] [place] Comment on above: Performed By: #### C BC, ADIFF, ANEU, CMP, GFR ####[address] [address] ALP [Catalytic activity/Vol] 47 U/L Normal 38-126 [facility] ([place] Comment on above: Performed By: #### C BC, ADIFF, ANEU, CMP, GFR ####[address] [address] Bili Total 0.5 mg/dL Normal 0.2-1.2 [facility] ([place] Comment on above: Performed By: #### C BC, ADIFF, ANEU, CMP, GFR ####[address] [address] Creatinine [Mass/Vol] 0.66 mg/dL Normal 0.60-1.40 [facility] ([place] Comment on above: Performed By: #### C BC, ADIFF, ANEU, CMP, GFR ####[address] [address] Globulin (S) [Mass/Vol] 2.7 G/dL Normal 1.5-3.8 [facility] ([place] Comment on above: Performed By: #### C BC, ADIFF, ANEU, CMP, GFR ####[address] [address] Protein [Mass/Vol] 4.8 G/dL Low 6.0-8.5 [facility] ([place] Comment on above: Performed By: #### C BC, ADIFF, ANEU, CMP, GFR ####[address] [address] Urea nitrogen/Creatinine [Mass ratio] 4.5 ratio Low 10.0-22.0 [facility] ([place] Comment on above: Performed By: #### C BC, ADIFF, ANEU, CMP, GFR ####[address] [address] Albumin [Mass/Vol] 2.1 G/dL Low 3.2-4.8 [facility] ([place]) Comment on above: Performed By: #### C BC, ADIFF, ANEU, CMP, GFR ####[address] [address] ALT [Catalytic activity/Vol] 16 U/L Normal 12-55 [facility] ([place] Comment on above: Performed By: #### C BC, ADIFF, ANEU, CMP, GFR ####[address] [address] AST [Catalytic activity/Vol] 11 U/L Normal 8-34 [facility] ([place] Comment on above: Performed By: #### C BC, ADIFF, ANEU, CMP, GFR ####[address] [address] Calcium [Mass/Vol] 7.8 mg/dL Low 8.4-10.1 [facility] ([place] Comment on above: Performed By: #### C BC, ADIFF, ANEU, CMP, GFR ####[address] [address] Chloride [Moles/Vol] 113 mmol/L High 98-110 [facility] ([place] Comment on above: Performed By: #### C BC, ADIFF, ANEU, CMP, GFR ####[place] [address] CO2 [Moles/Vol] 30 mmol/L Normal 22-32 [facility] ([place] Comment on above: Performed By: #### C BC, ADIFF, ANEU, CMP, GFR ####[address] [address] Electrolyte Balance 5.0 mEq/L Normal 4.0-15.0 [facility] ([place] Comment on above: Performed By: #### C BC, ADIFF, ANEU, CMP, GFR ####[address] [address] Glucose [Mass/Vol] 124 mg/dL High 70-110 [facility] ([place] Comment on above: Performed By: #### C BC, ADIFF, ANEU, CMP, GFR ####[address] [address] Potassium [Moles/Vol] 3.7 mmol/L Normal 3.5-5.0 [facility] ([place] Comment on above: Performed By: #### C BC, ADIFF, ANEU, CMP, GFR ####[address] [address] Sodium [Moles/Vol] 148 mmol/L High 136-145 [facility] ([place] Comment on above: Performed By: #### C BC, ADIFF, ANEU, CMP, GFR ####[place] [address] Urea nitrogen [Mass/Vol] 3.0 mg/dL Low 8.0-22.0 [facility] ([place] Comment on above: Performed By: #### C BC, ADIFF, ANEU, CMP, GFR ####[place] [address] HHon 06-07-2019 Hematocrit (Bld) [Volume fraction] 27.4 % Low 34.0-46.0 [facility] ([place] Comment on above: Performed By: #### H H ####[place] [address] Hemoglobin (Bld) [Mass/Vol] 9.6 G/dL Low 12.0-16.0 [facility] ([place] Comment on above: Performed By: #### H H ####[place] [address] XR CHEST 1 VIEWon 06-07-2019 XR CHEST [...] AM Sign Date: 06/07/2019 7:43:21 AM Normal [facility] ([place]) .Auto Diffon 06-06-2019 Ammonia (P) [Mass/Vol] 0.70 10 3/mcL Normal 0.09-1.40 [facility] ([place] Comment on above: Performed By: #### C BRYAN KRISHNAMURTHYIFF, ANEU #### [address] [address] #### BMP, GFR #### [address] [address] Basophils (Bld) [#/Vol] 0.00 10 3/mcL Normal 0.00-0.27 [facility] ([place] Comment on above: Performed By: #### C STEPHANIE KRISHNAMURTHY, ANEU #### [place] [address] #### BMP, GFR #### [address] [address] Basophils/100 WBC (Bld) 0.4 % Normal 0.0-2.5 [facility] ([place] Comment on above: Performed By: #### C RAGHU ADIFF, ANEU #### [place] [address] #### BMP, GFR #### [address] [address] Eosinophils (Bld) [#/Vol] 0.10 10 3/mcL Normal 0.00-0.65 [facility] ([place] Comment on above: Performed By: #### BRYAN JOHNSONIFF, ANEU #### [place] [address] #### BMP, GFR #### [address] [address] Eosinophils/100 WBC (Bld) 0.8 % Normal 0.0-6.0 [facility] ([place] Comment on above: Performed By: #### C BC, ADIFF, ANEU #### [place] [address] #### BMP, GFR #### [address] [address] Lymphocytes (Bld) [#/Vol] 0.70 10 3/mcL Low 0.90-4.32 [facility] ([place]) Comment on above: Performed By: #### C BC, ADIFF, ANEU #### [address] [address] #### BMP, GFR #### [address] [address] Lymphocytes/100 WBC (Bld) 9.2 % Low 20.0-40.0 [facility] ([place]) Comment on above: Performed By: #### C BC, ADIFF, ANEU #### [address] [address] #### BMP, GFR #### [address] [address] Monocytes/100 WBC (Bld) 9.6 % Normal 2.0-13.0 [facility] ([place]) Comment on above: Performed By: #### C BC, ADIFF, ANEU #### [place] [address] [address] #### BMP, GFR #### [address] [address] Neutrophils/100 WBC (Bld) 80.0 % High 50.0-75.0 [facility] ([place]) Comment on above: Performed By: #### C BC, ADIFF, ANEU #### [address] [address] #### BMP, GFR #### [address] [address] .GFRon 06-06-2019 GFR Non- >60 Normal [facility] ([place]) Comment on above: Result Comment: [...] Performed By: #### C BCSTEPHANIE, ANEU #### [address] [address] #### BMP, GFR #### [place] [address] GFR >60 Normal [facility] ([place]) Comment on above: Result Comment: GFR Population [...] By: #### C STEPHANIE KRISHNAMURTHY, ANEU #### [place] [address] #### BMP, GFR #### [address] [address] .NEUABSon 06-06-2019 Neutrophils (Bld) [#/Vol] 6.20 10 3/mcL Normal 2.25-8.10 [facility] ([place]) Comment on above: Performed By: #### C BCSTEPHANIE, ANEU #### [place] [address] #### BMP, GFR #### [address] [address] BMPon 06-06-2019 Calcium [Mass/Vol] 8.0 mg/dL Low 8.4-10.1 [facility] ([place]) Comment on above: Performed By: #### C BCSTEPHANIE, ANEU #### [address] [address] #### BMP, GFR #### [address] [address] Chloride [Moles/Vol] 104 mmol/L Normal 98-110 [facility] ([place]) Comment on above: Performed By: #### C BC, ADIFF, ANEU #### [address] [address] #### BMP, GFR #### [address] [address] CO2 [Moles/Vol] 26 mmol/L Normal 22-32 [facility] ([place]) Comment on above: Performed By: #### C BC, ADIFF, ANEU #### [address] [address] #### BMP, GFR #### [address] [address] Creatinine [Mass/Vol] 0.66 mg/dL Normal 0.50-1.20 [facility] ([place]) Comment on above: Performed By: #### C BC, ADIFF, ANEU #### [address] [address] #### BMP, GFR #### [address] [address] Electrolyte Balance 10.0 mEq/L Normal 4.0-15.0 [facility] ([place] Comment on above: Performed By: #### C BC, ADIFF, ANEU #### [address] [address] #### BMP, GFR #### [address] [address] Glucose [Mass/Vol] 104 mg/dL Normal 82-115 [facility] ([place]) Comment on above: Performed By: #### C BC, ADIFF, ANEU #### [address] [address] #### BMP, GFR #### [address] [address] Potassium [Moles/Vol] 3.2 mmol/L Low 3.5-5.0 [facility] ([place] Comment on above: Performed By: #### C STEPHANIE KRISHNAMURTHY, ANEU #### [address] [address] #### BMP, GFR #### [address] [address] Sodium [Moles/Vol] 140 mmol/L Normal 136-145 [facility] ([place]) Comment on above: Performed By: #### C STEPHANIE KRISHNAMURTHY, ANEU #### [address] [address] #### BMP, GFR #### [address] [address] Urea nitrogen [Mass/Vol] 10.0 mg/dL Normal 8.0-22.0 [facility] ([place] Comment on above: Performed By: #### C STEPHANIE KRISHNAMURTHY, ANEU #### [address] [address] #### BMP, GFR #### [address] [address] Urea nitrogen/Creatinine [Mass ratio] 15.2 ratio Normal 10.0-22.0 [facility] ([place] Comment on above: Performed By: #### C STEPHANIE KRISHNAMURTHY, ANEU #### [address] [address] #### BMP, GFR #### [address] [address] CBCon 06-06-2019 Erythrocyte distribution width (RBC) [Ratio] 13.6 % Normal 11.5-15.5 [facility] ([place] Comment on above: Performed By: #### C STEPHANIE KRISHNAMURTHY, ANEU #### [address] [address] #### BMP, GFR #### [address] [address] Hematocrit (Bld) [Volume fraction] 27.0 % Low 34.0-46.0 [facility] ([place] Comment on above: Performed By: #### C BC, ADIFF, ANEU #### [place] [address] #### BMP, GFR #### [address] [address] Hemoglobin (Bld) [Mass/Vol] 9.2 G/dL Low 12.0-16.0 [facility] ([place] Comment on above: Performed By: #### C BC, ADIFF, ANEU #### [place] [address] #### BMP, GFR #### [address] [address] MCH (RBC) [Entitic mass] 30.0 pg Normal 27.0-33.0 [facility] ([place] Comment on above: Performed By: #### C RAGHU, ADIFF, ANEU #### [place] [address] #### BMP, GFR #### [address] [address] MCHC (RBC) [Mass/Vol] 34.1 G/dL Normal 32.0-36.0 [facility] ([place] Comment on above: Performed By: #### C BC, ADIFF, ANEU #### [place] [address] #### BMP, GFR #### [place] [address] MCV (RBC) [Entitic vol] 88.0 fL Normal 80.0-99.0 [facility] ([place] Comment on above: Performed By: #### C BC, ADIFF, ANEU #### [place] [address] #### BMP, GFR #### [address] [address] Platelet mean volume (Bld) [Entitic vol] 8.2 fL Normal 6.6-10.5 [facility] ([place] Comment on above: Performed By: #### C BC, ADIFF, ANEU #### [address] [address] #### BMP, GFR #### [address] [address] Platelets (Bld) [#/Vol] 155 10 3/mcL Normal 150-450 [facility] ([place] Comment on above: Performed By: #### C BC, ADIFF, ANEU #### [place] [address] #### BMP, GFR #### [address] [address] RBC (Bld) [#/Vol] 3.07 10 6/mcL Low 4.10-5.30 [facility] ([place]) Comment on above: Performed By: #### C BC, ADIFF, ANEU #### [address] [address] #### BMP, GFR #### [address] [address] WBC (Bld) [#/Vol] 7.70 10 3/mcL Normal 4.50-10.80 [facility] ([place] Comment on above: Performed By: #### C BC, ADIFF, ANEU #### [address] [address] #### BMP, GFR #### [address] [address] XR CHEST 1 VIEWon 06-06-2019 XR CHEST [...] AM Sign Date: 06/06/2019 6:40:06 AM Normal [facility] ([place]) .Auto Diffon 06-05-2019 Ammonia (P) [Mass/Vol] 1.20 10 3/mcL Normal 0.09-1.40 [facility] ([place]) Comment on above: Performed By: #### C BC, ADIFF, ANEU #### [place] [address] #### BMP, GFR #### [address] [address] Basophils (Bld) [#/Vol] 0.00 10 3/mcL Normal 0.00-0.27 [facility] ([place] Comment on above: Performed By: #### C BC, ADIFF, ANEU #### [place] [address] #### BMP, GFR #### [address] [address] Basophils/100 WBC (Bld) 0.4 % Normal 0.0-2.5 [facility] ([place]) Comment on above: Performed By: #### C BC, ADIFF, ANEU #### [place] [address] #### BMP, GFR #### [address] [address] Eosinophils (Bld) [#/Vol] 0.10 10 3/mcL Normal 0.00-0.65 [facility] ([place] Comment on above: Performed By: #### C BC, ADIFF, ANEU #### [place] [address] #### BMP, GFR #### [address] [address] Eosinophils/100 WBC (Bld) 0.6 % Normal 0.0-6.0 [facility] ([place]) Comment on above: Performed By: #### C BC, ADIFF, ANEU #### [place] [address] #### BMP, GFR #### [address] [address] Lymphocytes (Bld) [#/Vol] 1.10 10 3/mcL Normal 0.90-4.32 [facility] ([place] Comment on above: Performed By: #### C BC, ADIFF, ANEU #### [address] [address] #### BMP, GFR #### [address] [address] Lymphocytes/100 WBC (Bld) 9.5 % Low 20.0-40.0 [facility] ([place]) Comment on above: Performed By: #### C BC, ADIFF, ANEU #### [address] [address] #### BMP, GFR #### [address] [address] Monocytes/100 WBC (Bld) 9.9 % Normal 2.0-13.0 [facility] ([place]) Comment on above: Performed By: #### C BC, ADIFF, ANEU #### [address] [address] #### BMP, GFR #### [address] [address] Neutrophils/100 WBC (Bld) 79.6 % High 50.0-75.0 [facility] ([place]) Comment on above: Performed By: #### C BC, ADIFF, ANEU #### [address] [address] #### BMP, GFR #### [address] [address] .GFRon 06-05-2019 GFR >60 Normal [facility] ([place]) Comment on above: Result Comment: GFR Population [...] By: #### C BC, ADIFF, ANEU #### [place] [address] #### BMP, GFR #### [place] [address] GFR Non- >60 Normal [facility] ([place] Comment on above: Result Comment: GFR Population [...] By: #### C BC, ADIFF, ANEU #### [address] [address] #### BMP, GFR #### [place] [id number] .Morphon 06-05-2019 Platelets (Bld) [#/Vol] Slt Decreased Normal [facility] ([place] Comment on above: Performed By: #### C BC, ADIFF, ANEU #### [address] [address] #### BMP, GFR #### [address] [address] RBC morphology finding Nom (Bld) Normal Normal [facility] ([place] Comment on above: Performed By: #### C BC, ADIFF, ANEU #### [place] [address] #### BMP, GFR #### [address] [address] .NEUABSon 06-05-2019 Neutrophils (Bld) [#/Vol] 9.30 10 3/mcL High 2.25-8.10 [facility] ([place]) Comment on above: Performed By: #### C BC, ADIFF, ANEU #### [place] [address] #### BMP, GFR #### [place] [address] BMPon 06-05-2019 Calcium [Mass/Vol] 8.2 mg/dL Low 8.4-10.1 [facility] ([place]) Comment on above: Performed By: #### C BC, ADIFF, ANEU #### [place] [address] #### BMP, GFR #### [place] [address] CO2 [Moles/Vol] 23 mmol/L Normal 22-32 [facility] ([place]) Comment on above: Performed By: #### C BC, ADIFF, ANEU #### [place] [address] #### BMP, GFR #### [place] [address] Creatinine [Mass/Vol] 0.65 mg/dL Normal 0.50-1.20 [facility] ([place] Comment on above: Performed By: #### C BC, ADIFF, ANEU #### [place] [address] #### BMP, GFR #### [place] [address] Electrolyte Balance 11.0 mEq/L Normal 4.0-15.0 [facility] ([place] Comment on above: Performed By: #### C BC, ADIFF, ANEU #### [place] [address] #### BMP, GFR #### [address] [address] Glucose [Mass/Vol] 114 mg/dL Normal 82-115 [facility] ([place]) Comment on above: Performed By: #### C BC, ADIFF, ANEU #### [address] [address] #### BMP, GFR #### [address] [address] Potassium [Moles/Vol] 4.2 mmol/L Normal 3.5-5.0 [facility] ([place] Comment on above: Performed By: #### C BC, ADIFF, ANEU #### [address] [address] #### BMP, GFR #### [address] [address] Urea nitrogen [Mass/Vol] 9.0 mg/dL Normal 8.0-22.0 [facility] ([place] Comment on above: Performed By: #### C BC, ADIFF, ANEU #### [address] [address] #### BMP, GFR #### [address] [address] Urea nitrogen/Creatinine [Mass ratio] 13.8 ratio Normal 10.0-22.0 [facility] ([place] Comment on above: Performed By: #### C BC, ADIFF, ANEU #### [address] [address] #### BMP, GFR #### [address] [address] Chloride [Moles/Vol] 107 mmol/L Normal 98-110 [facility] ([place]) Comment on above: Performed By: #### C BC, ADIFF, ANEU #### [address] [address] #### BMP, GFR #### [address] [address] Sodium [Moles/Vol] 141 mmol/L Normal 136-145 [facility] ([place]) Comment on above: Performed By: #### C BC, ADIFF, ANEU #### [address] [address] #### BMP, GFR #### [address] [address] CBCon 06-05-2019 Platelet mean volume (Bld) [Entitic vol] 9.1 fL Normal 6.6-10.5 [facility] ([place] Comment on above: Performed By: #### C BC, ADIFF, ANEU #### [address] [address] #### BMP, GFR #### [address] [address] Platelets (Bld) [#/Vol] 143 10 3/mcL Low 150-450 [facility] ([place] Comment on above: Performed By: #### C BC, ADIFF, ANEU #### [place] [address] #### BMP, GFR #### [address] [address] Erythrocyte distribution width (RBC) [Ratio] 14.0 % Normal 11.5-15.5 [facility] ([place] Comment on above: Performed By: #### C BC, ADIFF, ANEU #### [address] [address] #### BMP, GFR #### [address] [address] Hematocrit (Bld) [Volume fraction] 30.7 % Low 34.0-46.0 [facility] ([place] Comment on above: Performed By: #### C BC, ADIFF, ANEU #### [address] [address] #### BMP, GFR #### [address] [address] Hemoglobin (Bld) [Mass/Vol] 10.7 G/dL Low 12.0-16.0 [facility] ([place] Comment on above: Performed By: #### C BC, ADIFF, ANEU #### [address] [address] #### BMP, GFR #### [address] [address] MCH (RBC) [Entitic mass] 30.4 pg Normal 27.0-33.0 [facility] ([place] Comment on above: Performed By: #### C BC, ADIFF, ANEU #### [place] [address] #### BMP, GFR #### [address] [address] MCHC (RBC) [Mass/Vol] 34.8 G/dL Normal 32.0-36.0 [facility] ([place]) Comment on above: Performed By: #### C BC, ADIFF, ANEU #### [place] [address] #### BMP, GFR #### [place] [address] MCV (RBC) [Entitic vol] 87.6 fL Normal 80.0-99.0 [facility] ([place]) Comment on above: Performed By: #### C BC, ADIFF, ANEU #### [place] [address] #### BMP, GFR #### [address] [address] RBC (Bld) [#/Vol] 3.50 10 6/mcL Low 4.10-5.30 [facility] ([place]) Comment on above: Performed By: #### C BC, ADIFF, ANEU #### [place] [address] #### BMP, GFR #### [address] [address] WBC (Bld) [#/Vol] 11.60 10 3/mcL High 4.50-10.80 [facility] ([place]) Comment on above: Performed By: #### C BC, ADIFF, ANEU #### [address] [place], [place] [address] #### BMP, GFR #### [place] [id number] [address] [place] [address] XR CHEST 1 VIEWon 06-05-2019 XR CHEST [...] AM Sign Date: 06/05/2019 7:45:20 AM Normal [facility] ([place] XR CHEST 1 VIEW ORIGINAL PORTABLE UPRIGHT [...] PM Sign Date: 06/04/2019 11:53:30 PM Normal [facility] ([place]) .Auto Diffon 06-04-2019 Ammonia (P) [Mass/Vol] 0.90 10 3/mcL Normal 0.09-1.40 [facility] ([place]) Comment on above: Performed By: #### C BC, ADIFF, ANEU #### [place] [address] #### BMP, GFR #### [address] [address] Basophils (Bld) [#/Vol] 0.00 10 3/mcL Normal 0.00-0.27 [facility] ([place]) Comment on above: Performed By: #### C BC, ADIFF, ANEU #### [place] [address] #### BMP, GFR #### [address] [address] Basophils/100 WBC (Bld) 0.3 % Normal 0.0-2.5 [facility] ([place] Comment on above: Performed By: #### C BC, ADIFF, ANEU #### [place] [address] #### BMP, GFR #### [address] [address] Eosinophils (Bld) [#/Vol] 0.00 10 3/mcL Normal 0.00-0.65 [facility] ([place] Comment on above: Performed By: #### C BC, ADIFF, ANEU #### [place] [address] #### BMP, GFR #### [address] [address] Eosinophils/100 WBC (Bld) 0.1 % Normal 0.0-6.0 [facility] ([place] Comment on above: Performed By: #### C BC, ADIFF, ANEU #### [place] [address] #### BMP, GFR #### [address] [address] Lymphocytes (Bld) [#/Vol] 0.90 10 3/mcL Normal 0.90-4.32 [facility] ([place]) Comment on above: Performed By: #### C BC, ADIFF, ANEU #### [address] [address] #### BMP, GFR #### [facility] [address] [place] [address] Lymphocytes/100 WBC (Bld) 10.3 % Low 20.0-40.0 [facility] ([place]) Comment on above: Performed By: #### C BC, ADIFF, ANEU #### [address] [address] #### BMP, GFR #### [facility] [address] [place] [address] Monocytes/100 WBC (Bld) 9.5 % Normal 2.0-13.0 [facility] ([place] Comment on above: Performed By: #### C BC, ADIFF, ANEU #### [address] [address] #### BMP, GFR #### [address] [address] Neutrophils/100 WBC (Bld) 79.8 % High 50.0-75.0 [facility] ([place]) Comment on above: Performed By: #### C BC, ADIFF, ANEU #### [address] [address] #### BMP, GFR #### [address] [address] .GFRon 06-04-2019 GFR >60 Normal [facility] ([place]) Comment on above: Result Comment: [...] By: #### C BC, ADIFF, ANEU #### [address] [address] #### BMP, GFR #### [address] [address] GFR Non- >60 Normal [facility] ([place] Comment on above: Result Comment: GFR Population [...] By: #### C BC, ADIFF, ANEU #### [place] [address] #### BMP, GFR #### [address] [address] .NEUABSon 06-04-2019 Neutrophils (Bld) [#/Vol] 7.20 10 3/mcL Normal 2.25-8.10 [facility] ([place] Comment on above: Performed By: #### C BC, ADIFF, ANEU #### [address] [address] #### BMP, GFR #### [address] [address] BMPon 06-04-2019 Calcium [Mass/Vol] 8.8 mg/dL Normal 8.4-10.1 [facility] ([place] Comment on above: Performed By: #### C BC, ADIFF, ANEU #### [place] [address] #### BMP, GFR #### [address] [address] Chloride [Moles/Vol] 109 mmol/L Normal 98-110 [facility] ([place] Comment on above: Performed By: #### C BC, ADIFF, ANEU #### [address] [address] #### BMP, GFR #### [address] [address] CO2 [Moles/Vol] 25 mmol/L Normal 22-32 [facility] ([place] Comment on above: Performed By: #### C BC, ADIFF, ANEU #### [address] [address] #### BMP, GFR #### [address] [address] Creatinine [Mass/Vol] 0.82 mg/dL Normal 0.50-1.20 [facility] ([place] Comment on above: Performed By: #### C BC, ADIFF, ANEU #### [address] [address] #### BMP, GFR #### [address] [address] Electrolyte Balance 8.0 mEq/L Normal 4.0-15.0 [facility] ([place] Comment on above: Performed By: #### C BC, ADIFF, ANEU #### [address] [address] #### BMP, GFR #### [address] [address] Glucose [Mass/Vol] 132 mg/dL High 82-115 [facility] ([place]) Comment on above: Performed By: #### C BC, ADIFF, ANEU #### [address] [address] #### BMP, GFR #### [address] [address] Potassium [Moles/Vol] 4.3 mmol/L Normal 3.5-5.0 [facility] ([place] Comment on above: Performed By: #### C BC, ADIFF, ANEU #### [address] [address] #### BMP, GFR #### [address] [address] Sodium [Moles/Vol] 142 mmol/L Normal 136-145 [facility] ([place]) Comment on above: Performed By: #### C BC, ADIFF, ANEU #### [address] [address] #### BMP, GFR #### [address] [address] Urea nitrogen [Mass/Vol] 12.0 mg/dL Normal 8.0-22.0 [facility] ([place] Comment on above: Performed By: #### C BC, ADIFF, ANEU #### [address] [address] #### BMP, GFR #### [address] [address] Urea nitrogen/Creatinine [Mass ratio] 14.6 ratio Normal 10.0-22.0 [facility] ([place] Comment on above: Performed By: #### C BC, ADIFF, ANEU #### [address] [address] #### BMP, GFR #### [address] [address] CBCon 06-04-2019 Erythrocyte distribution width (RBC) [Ratio] 14.0 % Normal 11.5-15.5 [facility] ([place] Comment on above: Performed By: #### C BC, ADIFF, ANEU #### [address] [address] #### BMP, GFR #### [address] [address] Hematocrit (Bld) [Volume fraction] 38.5 % Normal 34.0-46.0 [facility] ([place] Comment on above: Performed By: #### C BC, ADIFF, ANEU #### [address] [address] #### BMP, GFR #### [address] [address] Hemoglobin (Bld) [Mass/Vol] 13.0 G/dL Normal 12.0-16.0 [facility] ([place] Comment on above: Performed By: #### C BC, ADIFF, ANEU #### [address] [address] #### BMP, GFR #### [address] [address] MCH (RBC) [Entitic mass] 30.1 pg Normal 27.0-33.0 [facility] ([place]) Comment on above: Performed By: #### C BC, ADIFF, ANEU #### [place] [address] #### BMP, GFR #### [address] [address] MCHC (RBC) [Mass/Vol] 33.7 G/dL Normal 32.0-36.0 [facility] ([place]) Comment on above: Performed By: #### C BC, ADIFF, ANEU #### [place] [address] #### BMP, GFR #### [address] [address] MCV (RBC) [Entitic vol] 89.5 fL Normal 80.0-99.0 [facility] ([place]) Comment on above: Performed By: #### C BC, ADIFF, ANEU #### [place] [address] #### BMP, GFR #### [address] [address] Platelet mean volume (Bld) [Entitic vol] 7.6 fL Normal 6.6-10.5 [facility] ([place]) Comment on above: Performed By: #### C BC, ADIFF, ANEU #### [place] [id number] #### BMP, GFR #### [address] [address] Platelets (Bld) [#/Vol] 197 10 3/mcL Normal 150-450 [facility] ([place] Comment on above: Performed By: #### C BC, ADIFF, ANEU #### [address] [address] #### BMP, GFR #### [address] [address] RBC (Bld) [#/Vol] 4.31 10 6/mcL Normal 4.10-5.30 [facility] ([place]) Comment on above: Performed By: #### C BC, ADIFF, ANEU #### [address] [address] #### BMP, GFR #### [address] [address] WBC (Bld) [#/Vol] 9.00 10 3/mcL Normal 4.50-10.80 [facility] ([place] Comment on above: Performed By: #### C BC, ADIFF, ANEU #### [address] [address] #### BMP, GFR #### [address] [address] [address] ANKLE W/O CONTRAST RIGHTo n 06-04-2019 [...] PM Sign Date: 06/04/2019 12:03:00 AM Normal [facility] ([place] CT WRIST W/O CONTRAST RIGHTo n [...] AM Sign Date: 06/04/2019 12:04:55 AM Normal [facility] ([place]) PROon 06-04-2019 INR Coag (PPP) [Relative time] 1.0 {INR} Normal [facility] ([place]) Comment on above: Result Comment: The [employer] (CHEST, 1992, [id number]) recommended therapeutic range for oral anticoagulant therapy is: LOW RISK: Prophylaxis of venous thrombosis INR: 2.0-3.0 Treatment of pulmonary embolism 2.0-3.0 Prevention of systemic embolism 2.0-3.0 HIGH RISK: Mechanical prosthetic valves 2.5-3.5 Performed By: #### C BC ADIFF, ANEU #### [place] [address] #### BMP, GFR #### [place] [address] PT Coag (PPP) [Time] 12.0 s Normal 9.0-14.6 [facility] ([place] Comment on above: Result Comment: Effe ctive 03/28/08, Protime results may be affected by some antibiotics (i.e. Ciprofloxacin, Azithromycin, Bactrim) which may potentiate the action of oral anticoagulants, with further increases in Protime/INR. Performed By: #### C BC ADIFF, ANEU #### [place] [address] #### BMP, GFR #### [place] [address] TABOon 06-04-2019 ABO/Rh Interp Negative [facility] ([place]) Comment on above: Performed By: #### C BCBRYANIFF, ANEU #### [place] [address] #### BMP, GFR #### [place] [address] TABSon 06-04-2019 Antibody Screen Tango Negative Normal [facility] ([place] Comment on above: Performed By: #### C BC, ADIFF, ANEU #### [place] [address] #### BMP, GFR #### [place] [address] XR CHEST 1 VIEWon 06-04-2019 XR CHEST [...] AM Sign Date: 06/04/2019 5:25:45 AM Normal [facility] ([place] XR FLUORO < 1HR TECH TIMEon 06-04-2019 XR FLUORO < 1HR TECH TIME ORIGINAL Intraoperative fluoroscopy and image intensifier views of the right ankle Clinical Statement: rt ankle fx, internal fixation Comparison: Radiographs 06/03/2019 FINDINGS: Technical Details: Tech Time - < 1hr\X0D0A\1120-2p total for both ; C-Arm # - 7; Total Dose - .85mGy; Images - 6; Technical Training Coordinator - nmk; History - rt ankle fx, [...] PM Sign Date: 06/04/2019 3:30:03 PM Normal [facility] ([place] XR FLUORO 1-2 HRS TECH TIMEo n 06-04-2019 XR FLUORO 1-2 HRS TECH TIME ORIGINAL Intraoperative fluoroscopy and image intensifier views of the right wrist Clinical Statement: rt wrist fx, internal fixation Comparison: 06/03/2019 FINDINGS: Technical Details: Tech Time - 1120-2p total for both exams; C-Arm # - 7; Total Dose - 1.71mGy; Images - 5; Technical Training Coordinator - nmk; History - rt wrist fx; [...] PM Sign Date: 06/04/2019 3:36:44 PM Normal [facility] ([place]) XR HAND MINIMUM 3 VIEWS LEFT on [...] AM Sign Date: 06/04/2019 9:53:38 AM Normal [facility] ([place]) .Auto Diffon 06-03-2019 Ammonia (P) [Mass/Vol] 0.60 10 3/mcL Normal 0.15-1.00 [facility] ([place] Comment on above: Performed By: #### C STEPHANIE KRISHNAMURTHY ANEU #### [address] [address] #### BMP, GFR #### [address] [address] Basophils (Bld) [#/Vol] 0.00 10 3/mcL Normal 0.00-0.19 [facility] ([place] Comment on above: Performed By: #### C STEPHANIE KRISHNAMURTHY ANEU #### [address] [address] #### BMP, GFR #### [address] [address] [address] Basophils/100 WBC (Bld) 0.4 % Normal 0.0-2.5 [facility] ([place]) Comment on above: Performed By: #### STEPHANIE JOHNSON ANEU #### [place] [address] #### BMP, GFR #### [address] [address] Eosinophils (Bld) [#/Vol] 0.10 10 3/mcL Normal 0.00-0.40 [facility] ([place]) Comment on above: Performed By: #### C BC, ADIFF, ANEU #### [place] [address] #### BMP, GFR #### [address] [address] Eosinophils/100 WBC (Bld) 1.0 % Normal 0.0-7.0 [facility] ([place]) Comment on above: Performed By: #### C BC, ADIFF, ANEU #### [place] [address] #### BMP, GFR #### [address] [address] Lymphocytes (Bld) [#/Vol] 1.20 10 3/mcL Normal 0.77-3.85 [facility] ([place]) Comment on above: Performed By: #### C BC, ADIFF, ANEU #### [place] [address] #### BMP, GFR #### [address] [address] Lymphocytes/100 WBC (Bld) 12.6 % Normal 10.0-50.0 [facility] ([place]) Comment on above: Performed By: #### C BC, ADIFF, ANEU #### [address] [address] #### BMP, GFR #### [address] [address] Monocytes/100 WBC (Bld) 6.3 % Normal 1.7-13.0 [facility] ([place]) Comment on above: Performed By: #### C BC, ADIFF, ANEU #### [place] [address] #### BMP, GFR #### [address] [address] Neutrophils/100 WBC (Bld) 79.7 % Normal 37.0-80.0 [facility] ([place]) Comment on above: Performed By: #### C STEPHANIE KRISHNAMURTHY, ANEU #### [place] [address] [address] #### BMP, GFR #### [address] [address] .GFRon 06-03-2019 GFR 78 ml/min/1.73sqm Normal [facility] ([place]) Comment on above: Result Comment: [...] #### C STEPHANIE KRISHNAMURTHY, ANEU #### [place] [address] [address] #### BMP, GFR #### [address] [address] GFR Non- 64 ml/min/1.73sqm Normal [facility] ([place]) Comment on above: Result Comment: GFR Population [...] By: #### C BC, ADIFF, ANEU #### [address] [address] #### BMP, GFR #### [address] [address] .NEUABSon 06-03-2019 Neutrophils (Bld) [#/Vol] 7.90 10 3/mcL High 2.85-6.16 [facility] ([place]) Comment on above: Performed By: #### C BC, ADIFF, ANEU #### [place] [address] #### BMP, GFR #### [address] [address] Calcium [Mass/Vol] 9.2 mg/dL Normal 8.4-10.2 [facility] ([place]) Comment on above: Performed By: #### C BC, ADIFF, ANEU #### [place] [address] #### BMP, GFR #### [address] [address] Chloride [Moles/Vol] 104 mmol/L Normal 98-107 [facility] ([place]) Comment on above: Performed By: #### C BC, ADIFF, ANEU #### [place] [address] #### BMP, GFR #### [address] [address] CO2 [Moles/Vol] 30 mmol/L Normal 23-31 [facility] ([place]) Comment on above: Performed By: #### C BC, ADIFF, ANEU #### [place] [address]607 #### BMP, GFR #### [address] [address] Creatinine [Mass/Vol] 0.85 mg/dL Normal 0.55-1.02 [facility] ([place]) Comment on above: Performed By: #### C BC, ADIFF, ANEU #### [address] [address] #### BMP, GFR #### [address] [address] Electrolyte Balance 9.0 mEq/L Normal [facility] ([place]) Comment on above: Performed By: #### C BC, ADIFF, ANEU #### [address] [address] #### BMP, GFR #### [address] [address] Glucose [Mass/Vol] 135 mg/dL High 83-110 [facility] ([place]) Comment on above: Performed By: #### C BC, ADIFF, ANEU #### [address] [address] #### BMP, GFR #### [address] [address] Potassium [Moles/Vol] 4.1 mmol/L Normal 3.5-5.1 [facility] ([place]) Comment on above: Performed By: #### C BC, ADIFF, ANEU #### [address] [address] #### BMP, GFR #### [address] [address] Sodium [Moles/Vol] 143 mmol/L Normal 136-145 [facility] ([place]) Comment on above: Performed By: #### C BC, ADIFF, ANEU #### [address] [address] #### BMP, GFR #### [address] [address] Urea nitrogen [Mass/Vol] 14 mg/dL Normal 7-18 [facility] ([place]) Comment on above: Performed By: #### C BC, ADIFF, ANEU #### [address] [address] #### BMP, GFR #### [address] [address] Urea nitrogen/Creatinine [Mass ratio] 16 ratio Normal 7-27 [facility] ([place]) Comment on above: Performed By: #### C STEPHANIE KRISHNAMURTHY, ANEU #### [address] [address] #### BMP, GFR #### [address] [address] CBCon 06-03-2019 Erythrocyte distribution width (RBC) [Ratio] 14.3 % Normal 11.5-14.5 [facility] ([place] Comment on above: Performed By: #### C STEPHANIE KRISHNAMURTHY, ANEU #### [address] [address] #### BMP, GFR #### [address] [address] Hematocrit (Bld) [Volume fraction] 38.5 % Normal 37.0-47.0 [facility] ([place]) Comment on above: Performed By: #### C STEPHANIE KRISHNAMURTHY, ANEU #### [address] [address] #### BMP, GFR #### [address] [address] Hemoglobin (Bld) [Mass/Vol] 13.0 G/dL Normal 12.0-16.0 [facility] ([place]) Comment on above: Performed By: #### C STEPHANIE KRISHNAMURTHY, ANEU #### [place] [address] #### BMP, GFR #### [address] [address] MCH (RBC) [Entitic mass] 30.0 pg Normal 27.0-31.2 [facility] ([place] Comment on above: Performed By: #### C STEPHANIE KRISHNAMURTHY, ANEU #### [address] [address] #### BMP, GFR #### [address] [address] MCHC (RBC) [Mass/Vol] 33.8 G/dL Normal 33.0-37.0 [facility] ([place] Comment on above: Performed By: #### C BC, ADIFF, ANEU #### [address] [address] #### BMP, GFR #### [address] [address] MCV (RBC) [Entitic vol] 88.6 fL Normal 80.0-94.0 [facility] ([place]) Comment on above: Performed By: #### C BC, ADIFF, ANEU #### [address] [address] #### BMP, GFR #### [address] [address] Platelet mean volume (Bld) [Entitic vol] 8.1 fL Normal 7.4-10.4 [facility] ([place]) Comment on above: Performed By: #### C BC, ADIFF, ANEU #### [place] [id number] #### BMP, GFR #### [address] [address] Platelets (Bld) [#/Vol] 221 10 3/mcL Normal 130-400 [facility] ([place]) Comment on above: Performed By: #### C BC, ADIFF, ANEU #### [place] [id number] #### BMP, GFR #### [address] [address] RBC (Bld) [#/Vol] 4.35 10 6/mcL Normal 4.20-5.40 [facility] ([place] Comment on above: Performed By: #### C BC, ADIFF, ANEU #### [address] [address] #### BMP, GFR #### [address] [address] WBC (Bld) [#/Vol] 9.90 10 3/mcL Normal 4.60-10.80 [facility] ([place]) Comment on above: Performed By: #### C BC, ADIFF, ANEU #### [place] [address] [place], [place] [address] #### BMP, GFR #### [address] [address] [address] ABD/PELVIS W/ IV CONTRAST ONLYon 06-03-2019 [...] PM Sign Date: 06/03/2019 4:57:41 PM Normal [facility] ([place] CT HEAD OR BRAIN W/O CONTRAS Ton [...] PM Sign Date: 06/03/2019 4:10:32 PM Normal [facility] ([place] SPINE CERVICAL W/O CONTRA STon 06-03-2019 [...] PM Sign Date: 06/03/2019 4:35:12 PM Normal [facility] ([place] CT THORAX W/ CONTRASTon - CT THORAX [...] PM Sign Date: 06/03/2019 4:53:52 PM Normal [facility] [place] XR ANKLE AND FOOT 6 VIEWS [facility] 06-03-2019 XR ANKLE AND FOOT 6 [...] PM Sign Date: 06/03/2019 3:45:45 PM Normal [facility] [place] ANKLE MINIMUM 3 VIEWS [facility] 06-03-2019 XR ANKLE MINIMUM 3 VIEWS [...] By: Tree Roberson DO Electronically Signed By: Brena Clancy MD Dictated Date: 06/03/2019 6:49:26 PM Prelim Date: 06/03/2019 6:53:42 PM Sign Date: 06/03/2019 7:11:45 PM Normal [facility] ([place]) [place]R CHEST 1 VIEWon 06-03-2019 XR CHEST [...] PM Sign Date: 06/03/2019 6:20:15 PM Normal [facility] ([place]) XR CHEST 1 VIEW ORIGINAL XR CHEST [...] PM Sign Date: 06/03/2019 3:47:37 PM Normal [facility] ([place]) XR FOREARM 2 VIEWS RIGHTon 0 [...] PM Sign Date: 06/03/2019 7:13:59 PM Normal [facility] ([place]) [place] KNEE THREE VIEWS RIGHTon 06-03-2019 XR [...] PM Sign Date: 06/03/2019 7:12:24 PM Normal [facility] ([place]) XR PELVIS 1 OR 2 VIEWSon XR [...] PM Sign Date: 06/03/2019 3:58:51 PM Normal [facility] [place]) X[place] WRIST TWO VIEWS RIGHTon 0 06-03-2019 [...] PM Sign Date: 06/03/2019 3:56:05 PM Normal [facility] ([place]) C-REACTIVE PROTEIN ([id number])Or dered By: Derrick Engineer on 10-15-2017 CRP mass conc 1.0 mg/L Normal 0.0-4.9 Comprehensi ve Internal Medicine Work Phone: Comment on above: PATIENT NOT FASTINGP ERFORMED BY: [facility]6370 [facility] [id number] CBC (AUTO) ([id number])Ordered By : Derrick Engineer on 10-15-2017 Erythrocyte distribution width Ratio (RBC) 13.8 % Normal 12.3-15.4 [facility] Work Phone: Comment on above: PATIENT NOT FASTINGP ERFORMED BY: ORTIZ [facility] Dafjuy3968 [address] RoadDublin [place] [id number] Hematocrit Volume Fraction (Bld) 40.2 % Normal 34.0-46.6 [facility] Work Phone: Comment on above: PATIENT NOT FASTINGP ERFORMED BY: ORTIZ [facility] Silepl5457 [address] RoadDublin [place] [id number] Hemoglobin mass conc (Bld) 13.4 g/dL Normal 11.1-15.9 [facility] Work Phone: Comment on above: PATIENT NOT FASTINGP ERFORMED BY: ORTIZ [facility] Ahjogq0420 [address] RoadDublin [place] [id number] MCH Entitic mass (RBC) 29.8 pg Normal 26.6-33.0 [facility] Internal Medicine Work Phone: Comment on above: PATIENT NOT FASTINGP ERFORMED BY: ORTIZ [facility] Mprpvj1466 [address] RoadDublin [place] [id number] MCHC mass conc (RBC) 33.3 g/dL Normal 31.5-35.7 [facility] Internal Medicine Work Phone: Comment on above: PATIENT NOT FASTINGP ERFORMED BY: CB [facility] Oetklq8794 [address] RoadDublin [place] [id number] MCV Entitic volume (RBC) 90 fL Normal 79-97 [facility] Work Phone: Comment on above: PATIENT NOT FASTINGP ERFORMED BY: ORTIZ [facility] Djuidk0694 [address] RoadDublin [place] [id number] Platelets #/vol (Bld) 211 {x10E3/uL} Normal 150-379 [facility] Work Phone: Comment on above: PATIENT NOT FASTINGP ERFORMED BY: ORTIZ [facility] Buqgcg7853 [address] RoadDublin [place] [id number] RBC #/vol (Bld) 4.49 {x10E6/uL} Normal 3.77-5.28 [facility] Work Phone: Comment on above: PATIENT NOT FASTINGP ERFORMED BY: ORTIZ Crowelin6370 [facility] [id number] WBC #/vol (Bld) 4.9 {x10E3/uL} Normal 3.4-10.8 Compr ensive Internal Medicine Work Phone: Comment on above: PATIENT NOT FASTINGP ERFORMED BY: ORTIZ Hou Kwqvvo5252 [facility] [id number] METABOLIC PANEL, COMPREHENSI VE ([id number])Ordered By: Derrick Engineer on 10-15-2017 Albumin mass conc 3.9 g/dL Normal 3.5-4.8 Compreh [facility] Internal Medicine Work Phone: Comment on above: PATIENT NOT FASTINGP ERFORMED BY: ORTIZ Hou Ckkcci0524 [facility] [id number] Albumin/Globulin mass ratio 1.6 {ratio} Normal 1.2-2.2 [facility] Work Phone: Comment on above: PATIENT NOT FASTINGP ERFORMED BY: ORTIZ Crowelin6370 [facility] [id number] ALP enzyme act/vol 78 [iU]/L Normal 39-117 [facility] Internal Medicine Work Phone: Comment on above: PATIENT NOT FASTINGP ERFORMED BY: ORTIZ Hou Jjpvwx6415 [facility] [id number] ALT enzyme act/vol 18 [iU]/L Normal 0-32 Compre [facility] Internal Medicine Work Phone: Comment on above: PATIENT NOT FASTINGP ERFORMED BY: ORTIZ Hou Vpipce8080 [facility] [id number] AST enzyme act/vol 25 [iU]/L Normal 0-40 [facility] Internal Medicine Work Phone: Comment on above: PATIENT NOT FASTINGP ERFORMED BY: ORTIZ [facility] Xizlhs0811 [address] RoadDublin [place] [id number] Bilirubin mass conc 0.4 mg/dL Normal 0.0-1.2 Compr ehensive Internal Medicine Work Phone: Comment on above: PATIENT NOT FASTINGP ERFORMED BY: ORTIZ [facility] Wbjyzo6512 [address] RoadDublin [place] [id number] Calcium mass conc 9.5 mg/dL Normal 8.7-10.3 Compreh ensive Internal Medicine Work Phone: Comment on above: PATIENT NOT FASTINGP ERFORMED BY: ORTIZ [facility] Mrnjud7264 [address] RoadDublin [place] [id number] Chloride molar conc 102 mmol/L Normal 96-106 Compr ehensive Internal Medicine Work Phone: Comment on above: PATIENT NOT FASTINGP ERFORMED BY: ORTIZ [facility] Fffhlq1041 [address] RoadDublin [place] [id number] CO2 molar conc 27 mmol/L Normal 18-29 Comprehens trupti Internal Medicine Work Phone: Comment on above: PATIENT NOT FASTINGP ERFORMED BY: ORTIZ [facility] Paodgn2947 [address] RoadDublin [place] [id number] Creatinine mass conc 0.88 mg/dL Normal 0.57-1.00 [facility] Work Phone: Comment on above: PATIENT NOT FASTINGP ERFORMED BY: ORTIZ [facility] Swwybf3048 [address] RoadDublin [place] [id number] GFR/1.73 sq M predicted among blacks CKD-EPI vol rate/area (S/P/Bld) 73 mL/min/1.73 Normal [facility] Work Phone: Comment on above: PATIENT NOT FASTINGP ERFORMED BY: CB [facility] Bwlgsy5407 [address]Dublin [place] [id number] GFR/1.73 sq M predicted among non-blacks CKD-EPI vol rate/area (S/P/Bld) 63 mL/min/1.73 Normal Comprehensiv e Internal Medicine Work Phone: Comment on above: PATIENT NOT FASTINGP ERFORMED BY: ORTIZ [facility] Jzigln1694 [address] RoadDublin [place] [id number] Globulin mass conc (S) 2.4 g/dL Normal 1.5-4.5 [facility]ensive [facility] Work Phone: Comment on above: PATIENT NOT FASTINGP ERFORMED BY: ORTIZ [facility] Knqiwu9593 [address] RoadDublin [place] [id number] Glucose mass conc 87 mg/dL Normal 65-99 Compreh ensive Internal Medicine Work Phone: Comment on above: PATIENT NOT FASTINGP ERFORMED BY: ORTIZ [facility] Pdgiug3222 [address] RoadDublin [place] [id number] Potassium molar conc 4.8 mmol/L Normal 3.5-5.2 [facility] Work Phone: Comment on above: PATIENT NOT FASTINGP ERFORMED BY: ORTIZ [facility] Afvnsv8239 [address] RoadDublin [place] [id number] Protein mass conc 6.3 g/dL Normal 6.0-8.5 Compreh ensive Internal Medicine Work Phone: Comment on above: PATIENT NOT FASTINGP ERFORMED BY: ORTIZ [facility] Baybff1360 [address] RoadDublin [place] [id number] Sodium molar conc 143 mmol/L Normal 134-144 Compreh ensive Internal Medicine Work Phone: Comment on above: PATIENT NOT FASTINGP ERFORMED BY: ORTIZ [facility] Bcxfij0725 [address] RoadDublin [place] [id number] Urea nitrogen mass conc 10 mg/dL Normal 8-27 [facility] Work Phone: Comment on above: PATIENT NOT FASTINGP ERFORMED BY: ORTIZ [facility] Yuwxfo3355 [address] RoadDublin [place] [id number] Urea nitrogen/Creatinine mass ratio 11 mg/mg Abnormal 12-28 [facility] Work Phone: Comment on above: PATIENT NOT FASTINGP ERFORMED BY: ORTIZ [facility] Ottnsb7641 [address] RoadDublin [place] [id number] SED RATE ERYTHROCYTE ([id number]) Ordered By: Derrick Engineer on 10-15-2017 ESR Velocity (Bld) 2 mm/h Normal 0-40 [facility] Internal Medicine Work Phone: Comment on above: PATIENT NOT FASTINGP ERFORMED BY: ORTIZ [facility] Lijitz1994 [address] RoadDublin [place] [id number] CBC W/AUTO DIFF WBC ([id number])O rdered By: Derrick Engineer on 09-01-2017 Basophils #/vol (Bld) 0.0 {x10E3/uL} Normal 0.0-0.2 [facility] Work Phone: Comment on above: PATIENT WAS FASTINGP ERFORMED BY: ORTIZ [facility] Adxwsz1912 [address] RoadDublin [place] [id number] Basophils/100 WBC (Bld) 0 % Normal [facility] Work Phone: Comment on above: PATIENT WAS FASTINGP ERFORMED BY: ORTIZ [facility] Ihchem8791 [address] RoadDublin [place] [id number] Eosinophils #/vol (Bld) 0.1 {x10E3/uL} Normal 0.0-0.4 [facility] Work Phone: Comment on above: PATIENT WAS FASTINGP ERFORMED BY: ORTIZ [facility] Gkqyzi5794 [address] RoadDublin [place] [id number] Eosinophils/100 WBC (Bld) 1 % Normal [facility] Work Phone: Comment on above: PATIENT WAS FASTINGP ERFORMED BY: ORTIZ [facility] Lrtocf2059 [address] RoadD[address] [place] [id number] Erythrocyte distribution width Ratio (RBC) 13.8 % Normal 12.3-15.4 [facility] Work Phone: Comment on above: PATIENT WAS FASTINGP ERFORMED BY: ORTIZ [facility] Evjwqi9459 [address] RoadDublin [place] [id number] Hematocrit Volume Fraction (Bld) 40.2 % Normal 34.0-46.6 [facility] Work Phone: Comment on above: PATIENT WAS FASTINGP ERFORMED BY: ORTIZ [facility] Tdqlvc5238 [address] RoadDublin [place] [id number] Hemoglobin mass conc (Bld) 13.2 g/dL Normal 11.1-15.9 [facility] Work Phone: Comment on above: PATIENT WAS FASTINGP ERFORMED BY: ORTIZ [facility] [facility]in [place] [id number] Immature granulocytes #/vol (Bld) 0.0 {x10E3/uL} Normal 0.0-0.1 [facility] Work Phone: Comment on above: PATIENT WAS FASTINGP ERFORMED BY: [facility] [facility]in [place] [id number] Immature granulocytes/100 WBC (Bld) 0 % Normal [facility] Work Phone: Comment on above: PATIENT WAS FASTINGP ERFORMED BY: ORTIZ [facility] Pypokq8724 [address] [facility] [id number] Lymphocytes #/vol (Bld) 1.3 {x10E3/uL} Normal 0.7-3.1 [facility] Work Phone: Comment on above: PATIENT WAS FASTINGP ERFORMED BY: [facility] Vhqzas5[address] [facility] [id number] Lymphocytes/100 WBC (Bld) 29 % Normal [facility] Work Phone: Comment on above: PATIENT WAS FASTINGP ERFORMED BY: [facility] Phaoed7181 [facility] [id number] MCH Entitic mass (RBC) 29.5 pg Normal 26.6-33.0 [facility] Internal Medicine Work Phone: Comment on above: PATIENT WAS FASTINGP ERFORMED BY: [facility] Zpaolm1720 [address] [facility] [id number] MCHC mass conc (RBC) 32.8 g/dL Normal 31.5-35.7 [facility] Internal Medicine Work Phone: Comment on above: PATIENT WAS FASTINGP ERFORMED BY: [facility]6[address] [facility] [id number] MCV Entitic volume (RBC) 90 fL Normal 79-97 [facility] Work Phone: Comment on above: PATIENT WAS FASTINGP ERFORMED BY: ORTIZ [facility] Daueuu3[address] [facility] [id number] Monocytes #/vol (Bld) 0.4 {x10E3/uL} Normal 0.1-0.9 [facility] Work Phone: Comment on above: PATIENT WAS FASTINGP ERFORMED BY: ORTIZ [facility] Attmzq5491 [address] [facility] [id number] Monocytes/100 WBC (Bld) 9 % Normal [facility] Work Phone: Comment on above: PATIENT WAS FASTINGP ERFORMED BY: ORTIZ [facility] Sleffz2028 [address] [facility] [id number] Neutrophils #/vol (Bld) 2.7 {x10E3/uL} Normal 1.4-7.0 [facility] Work Phone: Comment on above: PATIENT WAS FASTINGP ERFORMED BY: ORTIZ [facility] Cjcleh1646 [facility] [id number] Neutrophils/100 WBC (Bld) 61 % Normal [facility] Work Phone: Comment on above: PATIENT WAS FASTINGP ERFORMED BY: ORTIZ [facility] Wxdvuw6929 [facility] [id number] Platelets #/vol (Bld) 198 {x10E3/uL} Normal 150-379 [facility] Work Phone: Comment on above: PATIENT WAS FASTINGP ERFORMED BY: [facility] Doakij2125 [facility] [id number] RBC #/vol (Bld) 4.47 {x10E6/uL} Normal 3.77-5.28 [facility] Internal Medicine Work Phone: Comment on above: PATIENT WAS FASTINGP ERFORMED BY: [facility]6370 [facility] [id number] WBC #/vol (Bld) 4.5 {x10E3/uL} Normal 3.4-10.8 [facility] Internal Medicine Work Phone: Comment on above: PATIENT WAS FASTINGP ERFORMED BY: ORTIZ [facility] Sivqbb7883 [address] RoadDublin [place] [id number] LIPID PANEL ([id number])Ordered B y: Derrick Engineer on 09-01-2017 Cholesterol in HDL mass conc 59 mg/dL Normal [facility] Work Phone: Comment on above: PATIENT WAS FASTINGP ERFORMED BY: ORTIZ [facility] Zjvtxb9324 [address] RoadDublin [place] [id number] Cholesterol in LDL mass conc 72 mg/dL Normal 0-99 [facility] Work Phone: Comment on above: PATIENT WAS FASTINGP ERFORMED BY: ORTIZ [facility] Wvnhcy4031 [address] RoadD[address] [place] [id number] Cholesterol in LDL/Cholesterol in HDL mass ratio 1.2 {ratio_units} Normal 0.0-3.2 [facility] Work Phone: Comment on above: LDL/HDL Ratio Men Wo men 1/2 Avg.Risk 1.0 1.5 Avg.Risk 3.6 3.2 2X Avg.Risk 6.2 5.0 3X Avg.Risk 8.0 6.1 PATIENT WAS FASTINGP ERFORMED BY: ORTIZ [facility] Oxfkvz9177 [address] RoadDublin [place] [id number] Cholesterol in VLDL mass conc 18 mg/dL Normal 5-40 [facility] Work Phone: Comment on above: PATIENT WAS FASTINGP ERFORMED BY: ORTIZ [facility] Cvcakz2992 [address] RoadDublin [place] [id number] Cholesterol mass conc 149 mg/dL Normal 100-199 Com prehensive Internal Medicine Work Phone: Comment on above: PATIENT WAS FASTINGP ERFORMED BY: CB [facility] Pnwipz3435 [address] RoadDublin [place] [id number] Triglyceride mass conc 92 mg/dL Normal 0-149 [address] [facility] [address] [facility]hens[facility] Internal Medicine Work Phone: Comment on above: PATIENT WAS FASTINGP ERFORMED BY: ORTIZ [facility] Nphfkp9682 [address] RoadDublin [place] [id number] METABOLIC PANEL, COMPREHENSI VE ([id number])Ordered By: Derrick Engineer on 09-01-2017 Albumin mass conc 4.3 g/dL Normal 3.5-4.8 [facility] ensive Internal Medicine Work Phone: Comment on above: PATIENT WAS FASTINGP ERFORMED BY: ORTIZ [facility] Aqezdb7503 [address] RoadDublin [place] [id number] Albumin/Globulin mass ratio 2.0 {ratio} Normal 1.2-2.2 [facility] Work Phone: Comment on above: PATIENT WAS FASTINGP ERFORMED BY: CB [facility] Ezaatd2491 [address] RoadDublin [place] [id number] ALP enzyme act/vol 71 [iU]/L Normal 39-117 Compre [facility] Internal Medicine Work Phone: Comment on above: PATIENT WAS FASTINGP ERFORMED BY: [facility] Cpeyhc7980 [address] RoadDublin [place] [id number] ALT enzyme act/vol 11 [iU]/L Normal 0-32 [facility] Internal Medicine Work Phone: Comment on above: PATIENT WAS FASTINGP ERFORMED BY: [facility] Iietid6539 [address]blin [place] [id number] AST enzyme act/vol 16 [iU]/L Normal 0-40 [facility] Internal Medicine Work Phone: Comment on above: PATIENT WAS FASTINGP ERFORMED BY: [facility] Vkjvrd0661 [address] RoadCarepartners Rehabilitation Hospitalin [place] [id number] Bilirubin mass conc 0.4 mg/dL Normal 0.0-1.2 [facility] Internal Medicine Work Phone: Comment on above: PATIENT WAS FASTINGP ERFORMED BY: [facility] Bdykhq4249 [address] Roadblin [place] [id number] Calcium mass conc 9.5 mg/dL Normal 8.7-10.3 [facility] Work Phone: Comment on above: PATIENT WAS FASTINGP ERFORMED BY: [facility] Lksjlz6067 [address] Roadblin [place] [id number] Chloride molar conc 102 mmol/L Normal 96-106 Compr ensive Internal Medicine Work Phone: Comment on above: PATIENT WAS FASTINGP ERFORMED BY: CB [facility] Igsdpt5174 [address]Dublin [place] [id number] CO2 molar conc 27 mmol/L Normal 18-29 Comprehens trupti Internal Medicine Work Phone: Comment on above: PATIENT WAS FASTINGP ERFORMED BY: CB [facility] Qhflni5130 [address] RoadDublin [place] [id number] Creatinine mass conc 0.84 mg/dL Normal 0.57-1.00 Comp rehensive Internal Medicine Work Phone: Comment on above: PATIENT WAS FASTINGP ERFORMED BY: CB [facility] Jpqqhe4001 [address] RoadDublin [place] [id number] GFR/1.73 sq M predicted among blacks CKD-EPI vol rate/area (S/P/Bld) 77 mL/min/1.73 Normal [facility] Work Phone: Comment on above: PATIENT WAS FASTINGP ERFORMED BY: CB [facility] Uncbli4728 [address] Roadblin [place] [id number] GFR/1.73 sq M predicted among non-blacks CKD-EPI vol rate/area (S/P/Bld) 67 mL/min/1.73 Normal Comprehensiv e Internal Medicine Work Phone: Comment on above: PATIENT WAS FASTINGP ERFORMED BY: ORTIZ [facility] Egbedc9479 [address] RoadDublin [place] [id number] Globulin mass conc (S) 2.2 g/dL Normal 1.5-4.5 Co mprehensive Internal Medicine Work Phone: Comment on above: PATIENT WAS FASTINGP ERFORMED BY: CB [facility] Bwoqpk9749 [address] RoadDublin [place] [id number] Glucose mass conc 88 mg/dL Normal 65-99 Compreh ensive Internal Medicine Work Phone: Comment on above: PATIENT WAS FASTINGP ERFORMED BY: CB [facility] Ngrmfq5576 [address] RoadDublin [place] [id number] Potassium molar conc 4.3 mmol/L Normal 3.5-5.2 Comp rehensive Internal Medicine Work Phone: Comment on above: PATIENT WAS FASTINGP ERFORMED BY: ORTIZ [facility] Hfshow0857 [address] RoadDublin [place] [id number] Protein mass conc 6.5 g/dL Normal 6.0-8.5 Compreh ensive Internal Medicine Work Phone: Comment on above: PATIENT WAS FASTINGP ERFORMED BY: ORTIZ [facility] Kikhoc6286 [address] RoadDublin [place] [id number] Sodium molar conc 143 mmol/L Normal 134-144 Compreh ensive Internal Medicine Work Phone: Comment on above: PATIENT WAS FASTINGP ERFORMED BY: ORTIZ [facility] Cnsixk7259 [address] RoadDublin [place] [id number] Urea nitrogen mass conc 13 mg/dL Normal 8-27 [facility] Work Phone: Comment on above: PATIENT WAS FASTINGP ERFORMED BY: ORTIZ [facility] Dveoun5800 [address] RoadDublin [place] [id number] Urea nitrogen/Creatinine mass ratio 15 mg/mg Normal 12- [facility] Work Phone: Comment on above: PATIENT WAS FASTINGP ERFORMED BY: ORTIZ [facility] Iqaxpv3020 [address] RoadDublin [place] [id number] TSH ([id number])Ordered By: [employer] Router on 09-01-2017 Thyrotropin Qn 2.410 {uIU/mL} Normal 0.450-4.50 0 [facility] Work Phone: Comment on above: PATIENT WAS FASTINGP ERFORMED BY: CB [facility] Dhxfts5238 [address] RoadDublin [place] [id number] VITAMIN B-12 (CYANOCOBALAMIN ) (18322)Ordered By: Derrick Engineer on 09-01-2017 Cobalamin (Vitamin B12) mass conc 311 pg/mL Normal 232-1245 [facility] Work Phone: Comment on above: Please note refere nce interval change PATIENT WAS FASTINGP ERFORMED BY: ORTIZ [facility] Wvtgew4268 [address] RoadDublin [place] [id number] Vitamin D Hydroxy (33159)Ord ered By: Derrick Engineer on 09-01-2017 25-Hydroxyvitamin D2+25-Hydroxyvitamin D3 mass conc 33.4 ng/mL Normal 30.0-100.0 [facility] Work Phone: Comment on above: Vitamin D deficiency has been defined by the [place] ofMedicine and an Endocrine Society practice guideline as alevel of serum 25-OH vitamin D less than 20 ng/mL (1,2).The Endocrine Society went on to further define vitamin Dinsufficiency as a level between 21 and 29 ng/mL (2).1. IOM ([place] of Medicine). 2010. Dietary reference intakes for calcium and D. [place]: The National [employer].2. Allie MF, Emile PONCE, Natalie POOLE, et al. Evaluation, treatment, and prevention of vitamin D deficiency: an Endocrine Society clinical practice guideline. JCEM. 2010; 96(7):1911-30. PATIENT WAS FASTINGP ERFORMED BY: [facility]6370 [facility] [id number] Office Visiton 06-05-2017 Dietary management education, guidance, and counseling (procedure) yes Invalid Interpretation Code [facility] Work Phone: Documentation of current medications (procedure) Done Invalid Interpretation Code [facility] Work Phone: Fall risk assessment No Invalid Interpretation Code [facility] Work Phone: Tobacco use CPHS Never smoker Invalid Interpretation Code [facility] Work Phone: CALCIFIDIOL (89538) VIT D 25 Ordered By: Derrick Engineer on 12-16-2016 25-Hydroxyvitamin D2+25-Hydroxyvitamin D3 mass conc 37.5 ng/mL Normal 30.0-100.0 [facility] Work Phone: Comment on above: Vitamin D deficiency has been defined by the [place] of[place]icine and an Endocrine Society practice guideline as alevel of serum 25-OH vitamin D less than 20 ng/mL (1,2).The Endocrine Society went on to further define vitamin Dinsufficiency as a level between 21 and 29 ng/mL (2).1. IOM ([place] of Medicine). 2010. Dietary reference intakes for calcium and D. [place]: The National Academies Press.2. Allie MF, Emile [place], Natalie POOLE, et al. Evaluation, treatment, and prevention of vitamin D deficiency: an Endocrine Society clinical practice guideline. JCEM. 2010; 96(7):1911-30. PATIENT WAS FASTINGP ERFORMED BY: ORTIZ [facility] Uqvvxj2984 [address] RoadDublin [place] [id number] HEPATIC FUNCTION PANEL (8007 6)Ordered By: Derrick Engineer on 12-16-2016 Albumin mass conc 4.3 g/dL Normal 3.5-4.8 [facility] Internal Medicine Work Phone: Comment on above: PATIENT WAS FASTINGP ERFORMED BY: CB [facility] Adrhea5650 [address] RoadDublin [place] [id number] ALP enzyme act/vol 72 [iU]/L Normal 39-117 [facility] Internal Medicine Work Phone: Comment on above: PATIENT WAS FASTINGP ERFORMED BY: [facility] Enlizc4772 [address] RoadDublin [place] [id number] ALT enzyme act/vol 15 [iU]/L Normal 0-32 [facility] Internal Medicine Work Phone: Comment on above: PATIENT WAS FASTINGP ERFORMED BY: [facility] Tzcxdy8579 [address] RoadDublin [place] [id number] AST enzyme act/vol 18 [iU]/L Normal 0-40 [facility] Internal Medicine Work Phone: Comment on above: PATIENT WAS FASTINGP ERFORMED BY: CB [facility] Dfnlig7760 [address] RoadDublin [place] [id number] Bilirubin mass conc 0.5 mg/dL Normal 0.0-1.2 [facility] Internal Medicine Work Phone: Comment on above: PATIENT WAS FASTINGP ERFORMED BY: CB [facility] Qlcukj7935 [address] RoadDublin [place] [id number] Bilirubin.direct mass conc 0.16 mg/dL Normal 0.00-0.40 [facility] Internal Medicine Work Phone: Comment on above: PATIENT WAS FASTINGP ERFORMED BY: CB [facility] Vrpbns1140 [facility] [id number] Protein mass conc 6.7 g/dL Normal 6.0-8.5 Compreh ensive Internal Medicine Work Phone: Comment on above: PATIENT WAS FASTINGP ERFORMED BY: ORTIZ Ameya Akkyos1504 [facility] [id number] LIPID PANEL (16013)Ordered B y: Derrick Engineer on 12-16-2016 Cholesterol in HDL mass conc 56 mg/dL Normal [facility] Work Phone: Comment on above: PATIENT WAS FASTINGP ERFORMED BY: ORTIZ [facility] Xwhpvj4273 [facility] [id number] Information: [id number], [id number] Cholesterol in LDL mass conc 44 mg/dL Normal 0-99 [facility] Work Phone: Comment on above: PATIENT WAS FASTINGP ERFORMED BY: ORTIZ Ameya Wnobpi7879 [facility] [id number] Information: [id number], [id number] Cholesterol in LDL/Cholesterol in HDL mass ratio 0.8 {ratio_units} Normal 0.0-3.2 [facility] Work Phone: Comment on above: LDL/HDL Ratio Men Wo men 1/2 Avg.Risk 1.0 1.5 Avg.Risk 3.6 3.2 2X Avg.Risk 6.2 5.0 3X Avg.Risk 8.0 6.1 PATIENT WAS FASTINGP ERFORMED BY: ORTIZ [facility] Zaxhxy5369 [facility] [id number] Information: [id number], [id number] Cholesterol in VLDL mass conc 27 mg/dL Normal 5-40 [facility] Work Phone: Comment on above: PATIENT WAS FASTINGP ERFORMED BY: ORTIZ Ameya Qnmodt8520 [facility] [id number] Information: [id number], [id number] Cholesterol mass conc 127 mg/dL Normal 100-199 Com prehensive Internal Medicine Work Phone: Comment on above: PATIENT WAS FASTINGP ERFORMED BY: ORTIZ [facility] Wcuxww3870 [address] [facility]in [place] [id number] Information: [id number], [id number] Triglyceride mass conc 135 mg/dL Normal 0-149 [facility] Work Phone: Comment on above: PATIENT WAS FASTINGP ERFORMED BY: ORTIZ [facility] Gdmjpt5560 [address] [facility]in [place] [id number] Information: [id number], [id number] Clinical Lists Update: Prelo specialist wound care 10-31-2016 Left ventricular Ejection fraction 70 % Invalid Interpretation Code [facility] Work Phone: Lipid Panel (91575)Ordered B y: Derrick Engineer on 09-16-2016 Cholesterol in HDL mass conc 44 mg/dL Normal [facility] Work Phone: Comment on above: PATIENT WAS FASTINGP ERFORMED BY: ORTIZ [facility] Snsqpr6739 [facility] [id number] Cholesterol in LDL mass conc 161 mg/dL Abnormal 0-99 [facility] Work Phone: Comment on above: PATIENT WAS FASTINGP ERFORMED BY: ORTIZ [facility] Mdtovj5320 [address] [facility] [id number] Cholesterol in LDL/Cholesterol in HDL mass ratio 3.7 {ratio_units} Abnormal 0.0-3.2 [facility] Work Phone: Comment on above: LDL/HDL Ratio Men Wo men 1/2 Avg.Risk 1.0 1.5 Avg.Risk 3.6 3.2 2X Avg.Risk 6.2 5.0 3X Avg.Risk 8.0 6.1 PATIENT WAS FASTINGP ERFORMED BY: ORTIZ [facility] Pkvnoz8326 [address] [facility] [place] [id number] Cholesterol in VLDL mass conc 28 mg/dL Normal 5-40 [facility] Work Phone: Comment on above: PATIENT WAS FASTINGP ERFORMED BY: ORTIZ [facility] Bmhgrv9540 [address] [facility] [place] [id number] Cholesterol mass conc 233 mg/dL Abnormal 100-199 [facility] prehensive Internal Medicine Work Phone: Comment on above: PATIENT WAS FASTINGP ERFORMED BY: [facility] Egnrja3020 [address] [facility] [place] [id number] Triglyceride mass conc 139 mg/dL Normal 0-149 Co [facility] Internal Medicine Work Phone: Comment on above: PATIENT WAS FASTINGP ERFORMED BY: [facility] Gfebkb9209 [address] [facility] [id number] VITAMIN B-12 (CYANOCOBALAMIN ) (59188)Ordered By: Derrick Engineer on 09-16-2016 Cobalamin (Vitamin B12) mass conc 788 pg/mL Normal 211-946 [facility] Work Phone: Comment on above: PATIENT WAS FASTINGP ERFORMED BY: CB [facility] Uvlaly4780 [address] [facility]in [place] [id number] CALCIFIDIOL (29577) VIT D 25 Ordered By: Derrick Engineer on 07-01-2016 25-Hydroxyvitamin D2+25-Hydroxyvitamin D3 mass conc 34.8 ng/mL Normal 30.0-100.0 [facility] Work Phone: Comment on above: Vitamin D deficiency has been defined by the [place] of[facility] and an Endocrine Society practice guideline as alevel of serum 25-OH vitamin D less than 20 ng/mL (1,2).The Endocrine Society went on to further define vitamin Dinsufficiency as a level between 21 and 29 ng/mL (2).1. IOM ([place] of Medicine). 2010. Dietary reference intakes for calcium and D. [place]: The National Academies Press.2. Allie MF, Emile [place], Natalie POOLE, et al. Evaluation, treatment, and prevention of vitamin D deficiency: an Endocrine Society clinical practice guideline. JCEM. 2010; 96(7):1911-30. PATIENT WAS FASTINGP ERFORMED BY: CB [facility] Ufwgql0980 [address] [facility]in [place] [id number] CBC W/AUTO DIFF WBC (13256)O rdered By: Derrick Engineer on 07-01-2016 Basophils #/vol (Bld) 0.0 {x10E3/uL} Normal 0.0-0.2 [facility] Work Phone: Comment on above: PATIENT WAS FASTINGP ERFORMED BY: ORTIZ [facility] Jsifcd6027 [address] [facility]in [place] [id number] Basophils/100 WBC (Bld) 0 % Normal [facility] Work Phone: Comment on above: PATIENT WAS FASTINGP ERFORMED BY: ORTIZ [facility] Dyjyop8032 Rodriguez RoadCarepartners Rehabilitation Hospitalin [place] [id number] Eosinophils #/vol (Bld) 0.1 {x10E3/uL} Normal 0.0-0.4 [facility] Work Phone: Comment on above: PATIENT WAS FASTINGP ERFORMED BY: ORTIZ LabAleksandr CroweHuwajx3824 [address] [facility]in [place] [id number] Eosinophils/100 WBC (Bld) 2 % Normal [facility] Work Phone: Comment on above: PATIENT WAS FASTINGP ERFORMED BY: ORTIZ Crowelin6370 [facility] [id number] Erythrocyte distribution width Ratio (RBC) 14.0 % Normal 12.3-15.4 [facility] Work Phone: Comment on above: PATIENT WAS FASTINGP ERFORMED BY: ORTIZ Crowelin6370 [facility] [id number] Hematocrit Volume Fraction (Bld) 42.4 % Normal 34.0-46.6 [facility] Work Phone: Comment on above: PATIENT WAS FASTINGP ERFORMED BY: ORTIZ [facility] Nxeycf3085 [address] [facility] [id number] Hemoglobin mass conc (Bld) 14.1 g/dL Normal 11.1-15.9 [facility] Work Phone: Comment on above: PATIENT WAS FASTINGP ERFORMED BY: ORTIZ [facility] Sfbphk2854 Rodrgi[address] [facility]in [place] [id number] Immature granulocytes #/vol (Bld) 0.0 {x10E3/uL} Normal 0.0-0.1 [facility] Work Phone: Comment on above: PATIENT WAS FASTINGP ERFORMED BY: ORTIZ [facility] Wbodtw4698 [address] [facility]in [place] [id number] Immature granulocytes/100 WBC (Bld) 0 % Normal [facility] Work Phone: Comment on above: PATIENT WAS FASTINGP ERFORMED BY: ORTIZ [facility] Tnzmhq4075 [address] [facility] [id number] Lymphocytes #/vol (Bld) 1.8 {x10E3/uL} Normal 0.7-3.1 [facility] Work Phone: Comment on above: PATIENT WAS FASTINGP ERFORMED BY: ORTIZ [facility] Szsmyr9604 [address] [facility] [id number] Lymphocytes/100 WBC (Bld) 31 % Normal [facility] Work Phone: Comment on above: PATIENT WAS FASTINGP ERFORMED BY: ORTIZ [facility] Unqpjq5851 [address] [facility] [id number] MCH Entitic mass (RBC) 29.7 pg Normal 26.6-33.0 [facility] Internal Medicine Work Phone: Comment on above: PATIENT WAS FASTINGP ERFORMED BY: ORTIZ [facility] Ddzlvs9151 [address] [facility] [id number] MCHC mass conc (RBC) 33.3 g/dL Normal 31.5-35.7 [facility] Internal Medicine Work Phone: Comment on above: PATIENT WAS FASTINGP ERFORMED BY: ORTIZ [facility] Vutxku8025 [address] [facility] [id number] MCV Entitic volume (RBC) 89 fL Normal 79-97 [facility] Internal Medicine Work Phone: Comment on above: PATIENT WAS FASTINGP ERFORMED BY: ORTIZ [facility] Hjixfv5930 [address] [facility] [id number] Monocytes #/vol (Bld) 0.4 {x10E3/uL} Normal 0.1-0.9 [facility] Internal Medicine Work Phone: Comment on above: PATIENT WAS FASTINGP ERFORMED BY: ORTIZ [facility] Xdyods6827 [address] [facility] [place] [id number] Monocytes/100 WBC (Bld) 6 % Normal [facility] Work Phone: Comment on above: PATIENT WAS FASTINGP ERFORMED BY: [facility] Ekspse9160 [facility] [id number] Neutrophils #/vol (Bld) 3.7 {x10E3/uL} Normal 1.4-7.0 [facility] Work Phone: Comment on above: PATIENT WAS FASTINGP ERFORMED BY: [facility]6370 [facility] [id number] Neutrophils/100 WBC (Bld) 61 % Normal [facility] Work Phone: Comment on above: PATIENT WAS FASTINGP ERFORMED BY: [facility] Qpeure1884 [facility] [id number] Platelets #/vol (Bld) 221 {x10E3/uL} Normal 150-379 [facility] Work Phone: Comment on above: PATIENT WAS FASTINGP ERFORMED BY: [facility] Wnouuc1537 [facility] [id number] RBC #/vol (Bld) 4.75 {x10E6/uL} Normal 3.77-5.28 [facility] Internal Medicine Work Phone: Comment on above: PATIENT WAS FASTINGP ERFORMED BY: [facility]6370 [facility] [id number] WBC #/vol (Bld) 6.0 {x10E3/uL} Normal 3.4-10.8 [facility] Internal Medicine Work Phone: Comment on above: PATIENT WAS FASTINGP ERFORMED BY: [facility]6370 [facility] [id number] LIPID PANEL ([id number])Ordered B y: Derrick Engineer on 07-01-2016 Cholesterol in HDL mass conc 41 mg/dL Normal [facility] Work Phone: Comment on above: According to ATP-III Guidelines, HDL-C >59 mg/dL is considered anegative risk factor for CHD. PATIENT WAS FASTINGP ERFORMED BY: AmeyaSt. Francis Medical CenterSajjpd0400 [facility] [id number] Cholesterol in LDL mass conc 129 mg/dL Abnormal 0-99 [facility] Work Phone: Comment on above: PATIENT WAS FASTINGP ERFORMED BY: ORTIZ Nilda Crowelin6370 [facility] [id number] Cholesterol in LDL/Cholesterol in HDL mass ratio 3.1 {ratio_units} Normal 0.0-3.2 [facility] Work Phone: Comment on above: LDL/HDL Ratio Men Wo men 1/2 Avg.Risk 1.0 1.5 Avg.Risk 3.6 3.2 2X Avg.Risk 6.2 5.0 3X Avg.Risk 8.0 6.1 PATIENT WAS FASTINGP ERFORMED BY: ORTIZ Ameyaaustyn Skxlgj0574 [facility] [id number] Cholesterol in VLDL mass conc 45 mg/dL Abnormal 5-40 [facility] Work Phone: Comment on above: PATIENT WAS FASTINGP ERFORMED BY: ORTIZ [place] 3749970 [facility] [id number] Cholesterol mass conc 215 mg/dL Abnormal 100-199 Com prehensive Internal Medicine Work Phone: Comment on above: PATIENT WAS FASTINGP ERFORMED BY: ORTIZ Ameya Sgfsit0009 [facility] [id number] Triglyceride mass conc 223 mg/dL Abnormal 0-149 Co mprehensive Internal Medicine Work Phone: Comment on above: PATIENT WAS FASTINGP ERFORMED BY: ORTIZ [facility]6370 [facility] [id number] METABOLIC PANEL, COMPREHENSI VE ([id number])Ordered By: Derrick Engineer on 07-01-2016 Albumin mass conc 4.1 g/dL Normal 3.5-4.8 Compreh ensive Internal Medicine Work Phone: Comment on above: PATIENT WAS FASTINGP ERFORMED BY: ORTIZ [facility]6370 [facility] [id number] Albumin/Globulin mass ratio 1.6 {ratio} Normal 1.1-2.5 [facility] Work Phone: Comment on above: PATIENT WAS FASTINGP ERFORMED BY: ORTIZ LabCoaustyn CroweDukihy6464 [address] [facility] [place] [id number] ALP enzyme act/vol 98 [iU]/L Normal 39-117 [facility] Internal Medicine Work Phone: Comment on above: PATIENT WAS FASTINGP ERFORMED BY: ORTIZ LabAleksandr CroweKlbxpe3075 [address] [facility]in [place] [id number] ALT enzyme act/vol 11 [iU]/L Normal 0-32 [facility] Internal Medicine Work Phone: Comment on above: PATIENT WAS FASTINGP ERFORMED BY: ORTIZ LabAleksandr CroweSbeawp3928 [address] [facility] [id number] AST enzyme act/vol 17 [iU]/L Normal 0-40 [facility] Internal Medicine Work Phone: Comment on above: PATIENT WAS FASTINGP ERFORMED BY: ORTIZ Crowelin6370 [address] [facility] [id number] Bilirubin mass conc 0.2 mg/dL Normal 0.0-1.2 Compr [facility] Internal Medicine Work Phone: Comment on above: PATIENT WAS FASTINGP ERFORMED BY: ORTIZ [place]6370 [facility] [id number] Calcium mass conc 9.8 mg/dL Normal 8.7-10.3 [facility]pre[facility] Internal Medicine Work Phone: Comment on above: PATIENT WAS FASTINGP ERFORMED BY: ORTIZ [facility] Nieefi3364 [facility] [id number] Chloride molar conc 101 mmol/L Normal 97-106 Compr [facility] Internal Medicine Work Phone: Comment on above: Please note refere nce interval change PATIENT WAS FASTINGP ERFORMED BY: ORTIZ LabCoaustyn Zrnmvv6289 [address] [facility]in [place] [id number] CO2 molar conc 27 mmol/L Normal 18-29 Comprehens trupti Internal Medicine Work Phone: Comment on above: PATIENT WAS FASTINGP ERFORMED BY: ORTIZ [facility] Qsavdj0908 [address] RoadDublin [place] [id number] Creatinine mass conc 0.89 mg/dL Normal 0.57-1.00 Comp rehensive Internal Medicine Work Phone: Comment on above: PATIENT WAS FASTINGP ERFORMED BY: [facility] Kdfpjd4151 [address] RoadDublin [place] [id number] GFR/1.73 sq M predicted among blacks CKD-EPI vol rate/area (S/P/Bld) 72 mL/min/1.73 Normal [facility] Work Phone: Comment on above: PATIENT WAS FASTINGP ERFORMED BY: [facility] Woblwp3317 [address] RoadDublin [place] [id number] GFR/1.73 sq M predicted among non-blacks CKD-EPI vol rate/area (S/P/Bld) 63 mL/min/1.73 Normal Comprehensiv e Internal Medicine Work Phone: Comment on above: PATIENT WAS FASTINGP ERFORMED BY: [facility] Fbhyib8921 Rodriguez RoadCarepartners Rehabilitation Hospitalin [place] [id number] Globulin mass conc (S) 2.5 g/dL Normal 1.5-4.5 [address] [facility] [address] josephehensive Internal Medicine Work Phone: Comment on above: PATIENT WAS FASTINGP ERFORMED BY: [facility] Gfixob4921 [address] RoadDublin [place] [id number] Glucose mass conc 92 mg/dL Normal 65-99 Compreh ensive Internal Medicine Work Phone: Comment on above: PATIENT WAS FASTINGP ERFORMED BY: [facility] Spewhm4156 [address] [facility]bl[facility] [place] [id number] Potassium molar conc 5.0 mmol/L Normal 3.5-5.2 Comp rehensive Internal Medicine Work Phone: Comment on above: Please note refere nce interval change PATIENT WAS FASTINGP ERFORMED BY: [facility] Ltbztu1978 [address] RoadDublin [place] [id number] Protein mass conc 6.6 g/dL Normal 6.0-8.5 Compreh ensive Internal Medicine Work Phone: Comment on above: PATIENT WAS FASTINGP ERFORMED BY: ORTIZ [facility] Djqwyd2434 [address] RoadDublin [place] [id number] Sodium molar conc 143 mmol/L Normal 136-144 Compreh ensive Internal Medicine Work Phone: Comment on above: Please note refere nce interval change PATIENT WAS FASTINGP ERFORMED BY: CB [facility] Zwrork1723 [address] RoadDublin [place] [id number] Urea nitrogen mass conc 9 mg/dL Normal 8- [facility] Work Phone: Comment on above: PATIENT WAS FASTINGP ERFORMED BY: ORTIZ [facility] Bpmizn9313 [address] RoadDublin [place] [id number] Urea nitrogen/Creatinine mass ratio 10 mg/mg Abnormal 11- [facility] Work Phone: Comment on above: PATIENT WAS FASTINGP ERFORMED BY: ORTIZ [facility] Gouqcp4476 [address] RoadDuin [place] [id number] MICROALBUMINOrdered By: [employer] on 07-01-2016 Albumin DL <= 20 mg/L mass conc (U) 5.9 ug/mL Normal [facility] Work Phone: Comment on above: PATIENT WAS FASTINGP ERFORMED BY: ORTIZ [facility] Adiuff0250 [address] RoadDublin [place] [id number] Albumin/Creatinine mass ratio (U) 4.3 {mg/g_creat} Normal 0.0-30.0 [facility] Work Phone: Comment on above: PATIENT WAS FASTINGP ERFORMED BY: [facility] Ivjwdo1662 [address] RoadDublin [place] [id number] Creatinine mass conc (U) 138.1 mg/dL Normal [facility] Work Phone: Comment on above: PATIENT WAS FASTINGP ERFORMED BY: CB [facility] Vnuqap9271 [address] RoadDublin [place] [id number] TSH ([id number])Ordered By: TxCelle m [employer] Boards Router on 07-01-2016 Thyrotropin Qn 3.470 {uIU/mL} Normal 0.450-4.50 0 [facility] Work Phone: Comment on above: PATIENT WAS FASTINGP ERFORMED BY: ORTIZ Crowelin[address] RoadDublin [place] [id number] URINALYSIS, W/ MICRO ([id number]) Ordered By: Derrick Engineer on 07-01-2016 Appearance Nom (U) Clear Normal Compre hensive Internal Medicine Work Phone: Comment on above: PATIENT WAS FASTINGP ERFORMED BY: ORTIZ Crowelin6[address] RoadDublin [place] [id number] Bilirubin Ql (U) Negative Normal Comprehe nsive Internal Medicine Work Phone: Comment on above: PATIENT WAS FASTINGP ERFORMED BY: ORTIZ Crowelin[address] Roadblin [place] [id number] Color Nom (U) Yellow Normal Comprehensi ve Internal Medicine Work Phone: Comment on above: PATIENT WAS FASTINGP ERFORMED BY: ORTIZ Crowelin[address] RoadCarepartners Rehabilitation Hospitalin [place] [id number] Glucose Ql (U) Negative Normal Comprehens trupti Internal Medicine Work Phone: Comment on above: PATIENT WAS FASTINGP ERFORMED BY: ORTIZ Crowelin6[address] RoadLacombe [place] [id number] Hemoglobin Ql (U) Negative Normal Compreh ensive Internal Medicine Work Phone: Comment on above: PATIENT WAS FASTINGP ERFORMED BY: ORTIZ Crowelin[address] RoadCarepartners Rehabilitation Hospitalin [place] [id number] Ketones Ql (U) Negative Normal Comprehens trupti Internal Medicine Work Phone: Comment on above: PATIENT WAS FASTINGP ERFORMED BY: ORTIZ LabAleksandr CroweGdrigc9[address] RoadDublin [place] [id number] Leukocyte esterase Test strip Ql (U) Negative Normal [facility] Work Phone: Comment on above: PATIENT WAS FASTINGP ERFORMED BY: ORTIZ Crowelin[address] RoadDublin [place] [id number] Microscopic observation LM Nom (Urine sed) MICRON Normal [facility] Work Phone: Comment on above: Microscopic follows if indicated. PATIENT WAS FASTINGP ERFORMED BY: ORTIZ Crowelin[address] [facility] Systemblin [place] [id number] Microscopic observation LM Nom (Urine sed) See below: Normal [facility] Work Phone: Comment on above: Microscopic was derrick cated and was performed. PATIENT WAS FASTINGP ERFORMED BY: ORTIZ Crowelin[address] [facility] [id number] Nitrite Ql (U) Negative Normal Comprehens trupti Internal Medicine Work Phone: Comment on above: PATIENT WAS FASTINGP ERFORMED BY: ORTIZ Crowelin6370 [facility] [id number] pH (U) 5.5 [pH] Normal 5.0-7.5 [facility] Work Phone: Comment on above: PATIENT WAS FASTINGP ERFORMED BY: ORTIZ Chester6370 [facility] [id number] Protein Ql (U) Negative Normal Comprehens trupti Internal Medicine Work Phone: Comment on above: PATIENT WAS FASTINGP ERFORMED BY: ORTIZ Crowelin6370 [facility] [id number] Specific gravity Relative Density (U) 1.016 1 Normal 1.005-1.03 0 [facility] Work Phone: Comment on above: PATIENT WAS FASTINGP ERFORMED BY: ORTIZ Chester6370 [facility] [id number] Urobilinogen Test strip mass conc (U) 0.2 mg/dL Normal 0.2-1.0 Comprehensiv e Internal Medicine Work Phone: Comment on above: PATIENT WAS FASTINGP ERFORMED BY: ORTIZ Crowelin[address] [facility] [id number] VITAMIN B-12 (CYANOCOBALAMIN ) ([id number])Ordered By: Derrick Engineer on 07-01-2016 Cobalamin (Vitamin B12) mass conc 861 pg/mL Normal 211-946 [facility] Work Phone: Comment on above: PATIENT WAS FASTINGP ERFORMED BY: [employer]70 luxustravel.esCentral Carolina Hospital [id number] CALCIFIDIOL (98706) VIT D 25 Ordered By: Derrick Engineer on 12-05-2015 25-Hydroxyvitamin D2+25-Hydroxyvitamin D3 mass conc 40.5 ng/mL Normal 30.0-100.0 [facility] Work Phone: Comment on above: Vitamin D deficiency has been defined by the [place] ofMedicine and an Endocrine Society practice guideline as alevel of serum 25-OH vitamin D less than 20 ng/mL (1,2).The Endocrine Society went on to further define vitamin Dinsufficiency as a level between 21 and 29 ng/mL (2).1. IOM ([place] of Medicine). 2010. Dietary reference intakes for calcium and D. [place]: The National Academies Press.2. Allie MF, Emile PONCE, Natalie POOLE, et al. Evaluation, treatment, and prevention of vitamin D deficiency: an Endocrine Society clinical practice guideline. JCEM. 2010; 96(7):1911-30. PATIENT WAS FASTINGP ERFORMED BY: [employer] [facility] [id number] CBC W/AUTO DIFF WBC (35308)O rdered By: Derrick Engineer on 12-05-2015 Basophils #/vol (Bld) 0.0 {x10E3/uL} Normal 0.0-0.2 [facility] Work Phone: Comment on above: PATIENT WAS FASTINGP ERFORMED BY: [employer] Zidwap1668 [facility] [id number] Information: [id number] Basophils/100 WBC (Bld) 1 % Normal [facility] Work Phone: Comment on above: PATIENT WAS FASTINGP ERFORMED BY: [employer]6370 [facility] [id number] Information: [id number] Eosinophils #/vol (Bld) 0.2 {x10E3/uL} Normal 0.0-0.4 [facility] Work Phone: Comment on above: PATIENT WAS FASTINGP ERFORMED BY: ORTIZ RobledoScott [place] 5158570 [facility] [id number] Information: [id number] Eosinophils/100 WBC (Bld) 4 % Normal [facility] Work Phone: Comment on above: PATIENT WAS FASTINGP ERFORMED BY: [address] [id number] Information: [id number] Erythrocyte distribution width Ratio (RBC) 13.7 % Normal 12.3-15.4 [facility] Work Phone: Comment on above: PATIENT WAS FASTINGP ERFORMED BY: [address] [id number] Information: [id number] Hematocrit Volume Fraction (Bld) 40.2 % Normal 34.0-46.6 [facility] Work Phone: Comment on above: PATIENT WAS FASTINGP ERFORMED BY: [address] [id number] Information: [id number] Hemoglobin mass conc (Bld) 13.6 g/dL Normal 11.1-15.9 [facility] Work Phone: Comment on above: PATIENT WAS FASTINGP ERFORMED BY: [address] [id number] Information: [id number] Immature granulocytes #/vol (Bld) 0.0 {x10E3/uL} Normal 0.0-0.1 [facility] Work Phone: Comment on above: PATIENT WAS FASTINGP ERFORMED BY: [address] [id number] Information: [id number] Immature granulocytes/100 WBC (Bld) 0 % Normal [facility] Work Phone: Comment on above: PATIENT WAS FASTINGP ERFORMED BY: [facility]6370 [facility] [id number] Information: [id number] Lymphocytes #/vol (Bld) 1.2 {x10E3/uL} Normal 0.7-3.1 [facility] Work Phone: Comment on above: PATIENT WAS FASTINGP ERFORMED BY: [address] [id number] Information: [id number] Lymphocytes/100 WBC (Bld) 26 % Normal [facility] Work Phone: Comment on above: PATIENT WAS FASTINGP ERFORMED BY: [address] [id number] Information: [id number] MCH Entitic mass (RBC) 30.0 pg Normal 26.6-33.0 [facility] Internal Medicine Work Phone: Comment on above: PATIENT WAS FASTINGP ERFORMED BY: [address] [id number] Information: [id number] MCHC mass conc (RBC) 33.8 g/dL Normal 31.5-35.7 [facility] Internal Medicine Work Phone: Comment on above: PATIENT WAS FASTINGP ERFORMED BY: [address] [id number] Information: [id number] MCV Entitic volume (RBC) 89 fL Normal 79-97 [facility] Internal Medicine Work Phone: Comment on above: PATIENT WAS FASTINGP ERFORMED BY: [address] [id number] Information: [id number] Monocytes #/vol (Bld) 0.5 {x10E3/uL} Normal 0.1-0.9 [facility] Work Phone: Comment on above: PATIENT WAS FASTINGP ERFORMED BY: [address] StreetDublin [place] [id number] Information: [id number] Monocytes/100 WBC (Bld) 10 % Normal [facility] Work Phone: Comment on above: PATIENT WAS FASTINGP ERFORMED BY: ORTIZ [place] 3749970 [facility] [id number] Information: [id number] Neutrophils #/vol (Bld) 2.7 {x10E3/uL} Normal 1.4-7.0 [facility] Work Phone: Comment on above: PATIENT WAS FASTINGP ERFORMED BY: ORTIZ [address] [id number] Information: [id number] Neutrophils/100 WBC (Bld) 59 % Normal [facility] Work Phone: Comment on above: PATIENT WAS FASTINGP ERFORMED BY: ORTIZ [address] [id number] Information: [id number] Platelets #/vol (Bld) 206 {x10E3/uL} Normal 150-379 [facility] Work Phone: Comment on above: PATIENT WAS FASTINGP ERFORMED BY: ORTIZ [facility]6370 [facility] [id number] Information: [id number] RBC #/vol (Bld) 4.54 {x10E6/uL} Normal 3.77-5.28 [facility] Internal Medicine Work Phone: Comment on above: PATIENT WAS FASTINGP ERFORMED BY: [place] 3664470 [facility] [id number] Information: [id number] WBC #/vol (Bld) 4.5 {x10E3/uL} Normal 3.4-10.8 [facility] Internal Medicine Work Phone: Comment on above: PATIENT WAS FASTINGP ERFORMED BY: [place] 3664470 [facility] [id number] Information: [id number] LIPID PANEL ([id number])Ordered B y: Derrick Engineer on 12-05-2015 Cholesterol in HDL mass conc 46 mg/dL Normal [facility] Work Phone: Comment on above: According to ATP-III Guidelines, HDL-C >59 mg/dL is considered anegative risk factor for CHD. PATIENT WAS FASTINGP ERFORMED BY: ORTIZ Chester[address] [employer] SARLCentral Carolina Hospital [id number] Cholesterol in LDL mass conc 126 mg/dL Abnormal 0-99 [facility] Work Phone: Comment on above: PATIENT WAS FASTINGP ERFORMED BY: ORTIZ Chester6370 [facility] [id number] Cholesterol in LDL/Cholesterol in HDL mass ratio 2.7 {ratio_units} Normal 0.0-3.2 [facility] Work Phone: Comment on above: LDL/HDL Ratio Men Wo men 1/2 Avg.Risk 1.0 1.5 Avg.Risk 3.6 3.2 2X Avg.Risk 6.2 5.0 3X Avg.Risk 8.0 6.1 PATIENT WAS FASTINGP ERFORMED BY: ORTIZ Chester6370 [facility] [id number] Cholesterol in VLDL mass conc 31 mg/dL Normal 5-40 [facility] Work Phone: Comment on above: PATIENT WAS FASTINGP ERFORMED BY: ORTIZ Chester6370 [facility] [id number] Cholesterol mass conc 203 mg/dL Abnormal 100-199 Com prehensive Internal Medicine Work Phone: Comment on above: PATIENT WAS FASTINGP ERFORMED BY: ORTIZ Chester[address] [employer] SARLCentral Carolina Hospital [id number] Triglyceride mass conc 156 mg/dL Abnormal 0-149 Co mprehensive Internal Medicine Work Phone: Comment on above: PATIENT WAS FASTINGP ERFORMED BY: ORTIZ Chester6370 [facility] [id number] METABOLIC PANEL, COMPREHENSI VE ([id number])Ordered By: Derrick Engineer on 12-05-2015 Albumin mass conc 4.2 g/dL Normal 3.5-4.8 Compreh ensive Internal Medicine Work Phone: Comment on above: PATIENT WAS FASTINGP ERFORMED BY: CB [facility] Hruiqq20[address] Rodriguez RoadDublin [place] [id number] Albumin/Globulin mass ratio 1.8 {ratio} Normal 1.1-2.5 [facility] Work Phone: Comment on above: PATIENT WAS FASTINGP ERFORMED BY: CB [facility] Grpmnf8[address] RoadDublin [place] [id number] ALP enzyme act/vol 71 [iU]/L Normal 39-117 Compre [facility] Internal Medicine Work Phone: Comment on above: PATIENT WAS FASTINGP ERFORMED BY: CB [facility] Xuiiwa8555 [address] RoadDublin [place] [id number] ALT enzyme act/vol 10 [iU]/L Normal 0-32 Compre [facility] Internal Medicine Work Phone: Comment on above: PATIENT WAS FASTINGP ERFORMED BY: CB [facility] Uopmjg5735 [address] RoadDublin [place] [id number] AST enzyme act/vol 17 [iU]/L Normal 0-[address] [facility] Internal Medicine Work Phone: Comment on above: PATIENT WAS FASTINGP ERFORMED BY: CB [facility] Flynhf7[address] RoadDublin [place] [id number] Bilirubin mass conc 0.4 mg/dL Normal 0.0-1.2 Compr [facility] Internal Medicine Work Phone: Comment on above: PATIENT WAS FASTINGP ERFORMED BY: CB [facility] Epcbah95[address] RoadDublin [place] [id number] Calcium mass conc 9.5 mg/dL Normal 8.7-10.3 Compreh [facility] centerive Internal [facility] Work Phone: Comment on above: PATIENT WAS FASTINGP ERFORMED BY: CB [facility] Ivvkop12[address] RoadDublin [place] [id number] Chloride molar conc 106 mmol/L Normal 97-108 Compr ensive Internal Medicine Work Phone: Comment on above: PATIENT WAS FASTINGP ERFORMED BY: ORTIZ [facility] Zgwtjm7[address] Roadblin [place] [id number] CO2 molar conc 25 mmol/L Normal 18-29 Comprehens trupti Internal Medicine Work Phone: Comment on above: PATIENT WAS FASTINGP ERFORMED BY: ORTIZ [facility] Nivjkg75[address] RoadCarepartners Rehabilitation Hospitalin [place] [id number] Creatinine mass conc 0.92 mg/dL Normal 0.57-1.00 Comp premier healthensive Internal Medicine Work Phone: Comment on above: PATIENT WAS FASTINGP ERFORMED BY: ORTIZ [facility] Tqxmhz[address] [facility] [id number] GFR/1.73 sq M predicted among blacks CKD-EPI vol rate/area (S/P/Bld) 70 mL/min/1.73 Normal [facility] Work Phone: Comment on above: PATIENT WAS FASTINGP ERFORMED BY: ORTIZ [facility] Zfoemq2820 Rodriguez RoadLacombe [place] [id number] GFR/1.73 sq M predicted among non-blacks CKD-EPI vol rate/area (S/P/Bld) 61 mL/min/1.73 Normal Comprehensiv e Internal Medicine Work Phone: Comment on above: PATIENT WAS FASTINGP ERFORMED BY: ORTIZ [facility] Higppj[address] [facility]in [place] [id number] Globulin mass conc (S) 2.3 g/dL Normal 1.5-4.5 Co [facility] hospitalensive Internal [facility] Work Phone: Comment on above: PATIENT WAS FASTINGP ERFORMED BY: ORTIZ [facility] Dbirob[address] [facility]bl[facility] [place] [id number] Glucose mass conc 84 mg/dL Normal 65-99 Compreh ensive Internal Medicine Work Phone: Comment on above: PATIENT WAS FASTINGP ERFORMED BY: ORTIZ [facility] Lrhhoo[address] [facility]in [place] [id number] Potassium molar conc 4.6 mmol/L Normal 3.5-5.2 Comp rehensive Internal Medicine Work Phone: Comment on above: PATIENT WAS FASTINGP ERFORMED BY: ORTIZ MeenaAleksandr CroweHxnxsk6093 [facility] [id number] Protein mass conc 6.5 g/dL Normal 6.0-8.5 Compreh ensive Internal Medicine Work Phone: Comment on above: PATIENT WAS FASTINGP ERFORMED BY: ORTIZ Ameyaaustyn CroweHdwsna2255 [facility] [id number] Sodium molar conc 145 mmol/L Abnormal 134-144 Compreh ensive Internal Medicine Work Phone: Comment on above: PATIENT WAS FASTINGP ERFORMED BY: ORTIZ MeenaAleksandr CroweXiqprm7656 [facility] [id number] Urea nitrogen mass conc 16 mg/dL Normal 8-27 [facility] Work Phone: Comment on above: PATIENT WAS FASTINGP ERFORMED BY: ORTIZ Crowelin6370 [facility] [id number] Urea nitrogen/Creatinine mass ratio 17 mg/mg Normal 11-26 [facility] Work Phone: Comment on above: PATIENT WAS FASTINGP ERFORMED BY: ORTIZ Crowelin6370 [facility] [id number] MICROALBUMINOrdered By: Syst em [employer] Boards Router on 12-05-2015 Albumin DL <= 20 mg/L mass conc (U) 25.6 ug/mL Abnormal 0.0-17.0 [facility] Work Phone: Comment on above: PATIENT WAS FASTINGP ERFORMED BY: ORTIZ MeenaAleksandr CroweIhjkes2611 [facility] [id number] Albumin/Creatinine mass ratio (U) 9.3 {mg/g_creat} Normal 0.0-30.0 [facility] Work Phone: Comment on above: PATIENT WAS FASTINGP ERFORMED BY: ORTIZ MeenaAleksandr CroweUxucio7921 [facility] [id number] Creatinine mass conc (U) 276.5 mg/dL Normal 15.0-278.0 [facility] Work Phone: Comment on above: PATIENT WAS FASTINGP ERFORMED BY: ORTIZ [facility] Dfinwx6073 Rodriguez RoadDublin [place] [id number] TSH ([id number])Ordered By: TxCelle m [employer] Router on 12-05-2015 Thyrotropin Qn 1.330 {uIU/mL} Normal 0.450-4.50 0 [facility] Work Phone: Comment on above: PATIENT WAS FASTINGP ERFORMED BY: ORTIZ [facility] Tjijtr8581 [address] RoadDublin [place] [id number] URINALYSIS, W/ MICRO ([id number]) Ordered By: Derrick Engineer on 12-05-2015 Appearance Nom (U) Clear Normal Compre hensive Internal Medicine Work Phone: Comment on above: PATIENT WAS FASTINGP ERFORMED BY: ORTIZ LabAleksandr CroweOcykle8343 [address] RoadDublin [place] [id number] Bilirubin Ql (U) Negative Normal Comprehe nsive Internal Medicine Work Phone: Comment on above: PATIENT WAS FASTINGP ERFORMED BY: ORTIZ [facility] Rjsvgu8617 [address] RoadDublin [place] [id number] Color Nom (U) Yellow Normal Comprehensi ve Internal Medicine Work Phone: Comment on above: PATIENT WAS FASTINGP ERFORMED BY: ORTIZ LabCoaustyn CroweXylqwu19[address] RoadDublin [place] [id number] Glucose Ql (U) Negative Normal Comprehens trupti Internal Medicine Work Phone: Comment on above: PATIENT WAS FASTINGP ERFORMED BY: ORTIZ [facility] Ihetqb1136 [address] RoadDublin [place] [id number] Hemoglobin Ql (U) Negative Normal Compreh ensive Internal Medicine Work Phone: Comment on above: PATIENT WAS FASTINGP ERFORMED BY: ORTIZ [facility] Lcpzat0307 [address] RoadDublin [place] [id number] Ketones Ql (U) Negative Normal Comprehens trupti Internal Medicine Work Phone: Comment on above: PATIENT WAS FASTINGP ERFORMED BY: ORTIZ [facility] Ruhpuj9049 [address] RoadDublin [place] [id number] Leukocyte esterase Test strip Ql (U) Negative Normal [facility] Work Phone: Comment on above: PATIENT WAS FASTINGP ERFORMED BY: ORTIZ [facility]enaBo[facility] Center Stxatc4008 Rodriguez RoadDublin [place] [id number] Microscopic observation LM Nom (Urine sed) See below: Normal [facility] Work Phone: Comment on above: Microscopic was derrick cated and was performed. PATIENT WAS FASTINGP ERFORMED BY: ORTIZ [facility]6[address] RoadCarepartners Rehabilitation Hospitalin [place] [id number] Nitrite Ql (U) Negative Normal Comprehens trupti Internal Medicine Work Phone: Comment on above: PATIENT WAS FASTINGP ERFORMED BY: ORTIZ [facility]enaBo[facility] Center Shurua[address] [facility] [id number] pH (U) 5.5 [pH] Normal 5.0-7.5 [facility] Work Phone: Comment on above: PATIENT WAS FASTINGP ERFORMED BY: ORTIZ [facility] Sarlap[address] [facility] [id number] Protein Ql (U) 1+ Abnormal Comprehens trupti Internal Medicine Work Phone: Comment on above: PATIENT WAS FASTINGP ERFORMED BY: [facility] Cxerwg5775 [facility] [id number] Specific gravity Relative Density (U) 1.029 1 Normal 1.005-1.03 0 [facility] Work Phone: Comment on above: PATIENT WAS FASTINGP ERFORMED BY: [facility] Jzygfs[address] [facility]in [place] [id number] Urobilinogen Test strip mass conc (U) 0.2 mg/dL Normal 0.2-1.0 Comprehensiv e Internal Medicine Work Phone: Comment on above: PATIENT WAS FASTINGP ERFORMED BY: [facility] [facility]bl[facility] [place] [id number] VITAMIN B-12 (CYANOCOBALAMIN ) ([id number])Ordered By: Derrick Engineer on 12-05-2015 Cobalamin (Vitamin B12) mass conc 465 pg/mL Normal 211-946 [facility] Work Phone: Comment on above: PATIENT WAS FASTINGP ERFORMED BY: [employer]6370 MaxxAthleteUNC Health Lenoir [id number] Fecal Occult Blood , Office ([id number])Ordered By: Gabino Bullock on 11-08-2015 Hemoglobin.gastrointes tinal Ql (St) Negative Normal [facility] Work Phone: VITAMIN B-12 (CYANOCOBALAMIN ) ([id number])Ordered By: Derrick Engineer on 08-27-2015 Cobalamin (Vitamin B12) mass conc 919 pg/mL Normal 211-946 [facility] Work Phone: Comment on above: PATIENT NOT FASTINGP ERFORMED BY: [employer]6370 MaxxAthleteUNC Health Lenoir [id number] Information: [id number] Clinical Lists Update: Prelo specialist wound care 05-26-2015 Anion gap 6 mmol/L Invalid Interpretation Code [facility] Work Phone: basophils as percent of blood leukocytes, manual count 0.5 % Invalid Interpretation Code [facility] Work Phone: BUN/Creatinine Ratio 18.8 mg/mg Invalid Interpretation Code [facility] Work Phone: Calcium 8.9 mg/dL Invalid Interpretation Code [facility] Work Phone: Chloride 106 mmol/L Invalid Interpretation Code [facility] Work Phone: CO2 31.0 mmol/L Invalid Interpretation Code [facility] Work Phone: Creatinine 0.85 mg/dL Invalid Interpretation Code [facility] Work Phone: eosinophils as percent of blood leukocytes, manual count 5.4 % High [facility] Work Phone: Erythrocytes (RBC) 4.14 10*6/uL [facility] Work Phone: Glucose 102 mg/dL Invalid Interpretation Code [facility] Work Phone: Hematocrit (HCT) 38.6 % Invalid Interpretation Code [employer] Work Phone: Hemoglobin (HGB) 12.6 g/dL Invalid Interpretation Code [employer] Work Phone: Lymphocytes/100 leukocytes 27.3 % Invalid Interpretation Code [employer] Work Phone: MCH 30.4 pg Invalid Interpretation Code [employer] Work Phone: MCHC 32.6 g/dL Invalid Interpretation Code [employer] Work Phone: MCV 93.2 fL Invalid Interpretation Code [employer] Work Phone: Monocytes/100 leukocytes 10.2 % High [employer] Work Phone: neutrophils, band form as percent of blood leukocytes, manual count 56.4 % Invalid Interpretation Code [employer] Work Phone: Platelets 162 10*3/mm3 Invalid Interpretation Code [employer] Work Phone: PMV by Bernard 9.6 fL Invalid Interpretation Code [employer] Work Phone: Potassium 4.3 mmol/L Invalid Interpretation Code [employer] Work Phone: RDW-CA 12.9 % Invalid Interpretation Code [employer] Work Phone: Sodium 143 mmol/L Invalid Interpretation Code [employer] Work Phone: Urea nitrogen 16 mg/dL Invalid Interpretation Code [employer] Work Phone: WBC (Leukocytes) 6.3 10*3/uL Invalid Interpretation Code [employer] Work Phone: Clinical Lists Update: Prelo specialist wound care 04-26-2015 Cholesterol 136 mg/dL Invalid Interpretation Code [employer] Work Phone: HDL Cholesterol 49 mg/dL Invalid Interpretation Code [employer] Work Phone: LDL Cholesterol 66 mg/dL Invalid Interpretation Code [employer] Work Phone: Triglyceride 105 mg/dL Invalid Interpretation Code [employer] Work Phone: very low density lipoproteins 21 mg/dL Invalid Interpretation Code [facility] Work Phone: CBC W/AUTO DIFF WBC ([id number])O rdered By: Derrick Engineer on 10-19-2014 Basophils #/vol (Bld) 0.0 {x10E3/uL} Normal 0.0-0.2 [facility] Work Phone: Comment on above: PATIENT WAS FASTINGP ERFORMED BY: ORTIZ [facility]6370 [facility] [id number] Information: [id number] Basophils/100 WBC (Bld) 1 % Normal [facility] Work Phone: Comment on above: PATIENT WAS FASTINGP ERFORMED BY: LabMymichigan [facility] [id number] Information: [id number] Eosinophils #/vol (Bld) 0.2 {x10E3/uL} Normal 0.0-0.4 [facility] Work Phone: Comment on above: PATIENT WAS FASTINGP ERFORMED BY: OR[facility]Z [facility] [id number] Information: [id number] Eosinophils/100 WBC (Bld) 5 % Normal [facility] Work Phone: Comment on above: PATIENT WAS FASTINGP ERFORMED BY: [facility]6370 [facility] [id number] Information: [id number] Erythrocyte distribution width Ratio (RBC) 13.5 % Normal 12.3-15.4 [facility] Work Phone: Comment on above: PATIENT WAS FASTINGP ERFORMED BY: LabCo Fawjdl1783 [facility] [id number] Information: [id number] Hematocrit Volume Fraction (Bld) 39.1 % Normal 34.0-46.6 [facility] Work Phone: Comment on above: PATIENT WAS FASTINGP ERFORMED BY: LabCo Xnthgh3914 [facility] [id number] Information: [id number] Hemoglobin mass conc (Bld) 12.9 g/dL Normal 11.1-15.9 [facility] Work Phone: Comment on above: PATIENT WAS FASTINGP ERFORMED BY: [place] [id number] [facility] [id number] Information: [id number] Immature granulocytes #/vol (Bld) 0.0 {x10E3/uL} Normal 0.0-0.1 [facility] Work Phone: Comment on above: PATIENT WAS FASTINGP ERFORMED BY: [address] [id number] Information: [id number] Immature granulocytes/100 WBC (Bld) 0 % Normal [facility] Work Phone: Comment on above: PATIENT WAS FASTINGP ERFORMED BY: [place] [id number] [facility] [id number] Information: [id number] Lymphocytes #/vol (Bld) 1.2 {x10E3/uL} Normal 0.7-3.1 [facility] Work Phone: Comment on above: PATIENT WAS FASTINGP ERFORMED BY: [facility]6370 [facility] [id number] Information: [id number] Lymphocytes/100 WBC (Bld) 25 % Normal [facility] Work Phone: Comment on above: PATIENT WAS FASTINGP ERFORMED BY: [place] 3664470 [facility] [id number] Information: [id number] MCH Entitic mass (RBC) 29.8 pg Normal 26.6-33.0 [facility] Internal Medicine Work Phone: Comment on above: PATIENT WAS FASTINGP ERFORMED BY: [place] [id number] [facility] [id number] Information: [id number] MCHC mass conc (RBC) 33.0 g/dL Normal 31.5-35.7 [facility] Internal Medicine Work Phone: Comment on above: PATIENT WAS FASTINGP ERFORMED BY: [place] [id number] [facility] [id number] Information: [id number] MCV Entitic volume (RBC) 90 fL Normal 79-97 [facility] Work Phone: Comment on above: PATIENT WAS FASTINGP ERFORMED BY: [address] [id number] Information: [id number] Monocytes #/vol (Bld) 0.5 {x10E3/uL} Normal 0.1-0.9 [facility] Work Phone: Comment on above: PATIENT WAS FASTINGP ERFORMED BY: [address] [id number] Information: [id number] Monocytes/100 WBC (Bld) 10 % Normal [facility] Work Phone: Comment on above: PATIENT WAS FASTINGP ERFORMED BY: [address] [id number] Information: [id number] Neutrophils #/vol (Bld) 2.9 {x10E3/uL} Normal 1.4-7.0 [facility] Work Phone: Comment on above: PATIENT WAS FASTINGP ERFORMED BY: [address] [id number] Information: [id number] Neutrophils/100 WBC (Bld) 59 % Normal [facility] Work Phone: Comment on above: PATIENT WAS FASTINGP ERFORMED BY: [address] [id number] Information: [id number] Platelets #/vol (Bld) 196 {x10E3/uL} Normal 150-379 [facility] Work Phone: Comment on above: PATIENT WAS FASTINGP ERFORMED BY: ORTIZ [place]6370 [facility] [id number] Information: [id number] RBC #/vol (Bld) 4.33 {x10E6/uL} Normal 3.77-5.28 [facility] Work Phone: Comment on above: PATIENT WAS FASTINGP ERFORMED BY: ORTIZ LabCo Gpbnvu0562 [facility] [id number] Information: [id number] WBC #/vol (Bld) 4.9 {x10E3/uL} Normal 3.4-10.8 [facility] Internal Medicine Work Phone: Comment on above: PATIENT WAS FASTINGP ERFORMED BY: ORTIZ [facility] Jlmmbm1051 [facility] [id number] Information: [id number] LIPID PANEL ([id number])Ordered B y: Derrick Engineer on 10-19-2014 Cholesterol in HDL mass conc 47 mg/dL Normal [facility] Work Phone: Comment on above: According to ATP-III Guidelines, HDL-C >59 mg/dL is considered anegative risk factor for CHD. PATIENT WAS FASTINGP ERFORMED BY: ORTIZ LabBo[facility] Center Xpitit0022 [facility] [id number] Cholesterol in LDL mass conc 148 mg/dL Abnormal 0-99 [facility] Work Phone: Comment on above: PATIENT WAS FASTINGP ERFORMED BY: LabCo Ldurgp3587 [facility] [id number] Cholesterol in LDL/Cholesterol in HDL mass ratio 3.1 {ratio_units} Normal 0.0-3.2 [facility] Work Phone: Comment on above: LDL/HDL Ratio Men Wo men 1/2 Avg.Risk 1.0 1.5 Avg.Risk 3.6 3.2 2X Avg.Risk 6.2 5.0 3X Avg.Risk 8.0 6.1 PATIENT WAS FASTINGP ERFORMED BY: ORTIZ LabCoaustyn CroweNtkcie20[address] Roadblin [place] [id number] Cholesterol in VLDL mass conc 36 mg/dL Normal 5-40 [facility] Work Phone: Comment on above: PATIENT WAS FASTINGP ERFORMED BY: ORTIZ LabAleksandr CroweOtlemd[address] [facility] Systembl[facility] [place] [id number] Cholesterol mass conc 231 mg/dL Abnormal 100-199 Com prehensive Internal Medicine Work Phone: Comment on above: PATIENT WAS FASTINGP ERFORMED BY: ORTIZ LabCoaustyn CrowePgfutw5279 [address] Roadblin [place] [id number] Triglyceride mass conc 179 mg/dL Abnormal 0-149 Co mprehensive Internal Medicine Work Phone: Comment on above: PATIENT WAS FASTINGP ERFORMED BY: ORTIZ Crowelin[address] [facility] [id number] METABOLIC PANEL, COMPREHENSI VE ([id number])Ordered By: Derrick Engineer on 10-19-2014 Albumin mass conc 4.3 g/dL Normal 3.5-4.8 Compreh ensive Internal Medicine Work Phone: Comment on above: PATIENT WAS FASTINGP ERFORMED BY: ORTIZ LabAleksandr CroweZammnu[address] [facility] [id number] Albumin/Globulin mass ratio 2.2 {ratio} Normal 1.1-2.5 [facility] Work Phone: Comment on above: PATIENT WAS FASTINGP ERFORMED BY: ORTIZ LabAleksandr CroweXmdvwu023[address] [facility] [place] [id number] ALP enzyme act/vol 73 [iU]/L Normal 39-117 Compre [facility] Internal Medicine Work Phone: Comment on above: PATIENT WAS FASTINGP ERFORMED BY: ORTIZ LabCoaustyn Qurxgw68[address] [facility]in [place] [id number] ALT enzyme act/vol 8 [iU]/L Normal 0-32 Compre [facility] Internal Medicine Work Phone: Comment on above: PATIENT WAS FASTINGP ERFORMED BY: ORTIZ LabAleksandr CroweVijnez[address] [facility]in [place] [id number] AST enzyme act/vol 15 [iU]/L Normal 0-40 [facility] Internal Medicine Work Phone: Comment on above: PATIENT WAS FASTINGP ERFORMED BY: ORTIZ [facility] Uqfglw3968 [address] RoadDublin [place] [id number] Bilirubin mass conc 0.3 mg/dL Normal 0.0-1.2 [facility] Internal Medicine Work Phone: Comment on above: PATIENT WAS FASTINGP ERFORMED BY: CB [facility] Knimol48[address] Roadblin [place] [id number] Calcium mass conc 9.6 mg/dL Normal 8.7-10.3 Compreh [facility] Internal Medicine Work Phone: Comment on above: PATIENT WAS FASTINGP ERFORMED BY: LabCo Vzexrl[address] [facility]in [place] [id number] Chloride molar conc 99 mmol/L Normal 97-108 Compr [facility] Internal Medicine Work Phone: Comment on above: PATIENT WAS FASTINGP ERFORMED BY: Lab[facility] Qjcogo[address] [facility]in [place] [id number] CO2 molar conc 27 mmol/L Normal 18-29 [facility] Internal Medicine Work Phone: Comment on above: PATIENT WAS FASTINGP ERFORMED BY: [facility] Ezruae[address] [facility]in [place] [id number] Creatinine mass conc 0.91 mg/dL Normal 0.57-1.00 [facility] Internal Medicine Work Phone: Comment on above: PATIENT WAS FASTINGP ERFORMED BY: CB [facility] Vxyhwc1281 [address] RoadCarepartners Rehabilitation Hospitalin [place] [id number] GFR/1.73 sq M predicted among blacks CKD-EPI vol rate/area (S/P/Bld) 71 mL/min/1.73 Normal [facility] Work Phone: Comment on above: PATIENT WAS FASTINGP ERFORMED BY: CB [facility] Pcnomo8835 [address] RoadDuin [place] [id number] GFR/1.73 sq M predicted among non-blacks CKD-EPI vol rate/area (S/P/Bld) 62 mL/min/1.73 Normal Comprehensiv e Internal Medicine Work Phone: Comment on above: PATIENT WAS FASTINGP ERFORMED BY: ORTIZ [facility] Bedoot6900 [address] RoadDublin [place] [id number] Globulin mass conc (S) 2.0 g/dL Normal 1.5-4.5 Co mprehensive Internal Medicine Work Phone: Comment on above: PATIENT WAS FASTINGP ERFORMED BY: ORTIZ [facility] Rmjjdl7412 [address] RoadDublin [place] [id number] Glucose mass conc 82 mg/dL Normal 65-99 Compreh ensive Internal Medicine Work Phone: Comment on above: PATIENT WAS FASTINGP ERFORMED BY: ORTIZ [facility] Ecjygq2403 [address] RoadDublin [place] [id number] Potassium molar conc 4.6 mmol/L Normal 3.5-5.2 Comp rehensive Internal Medicine Work Phone: Comment on above: PATIENT WAS FASTINGP ERFORMED BY: ORTIZ [facility] Forexi4443 [address] RoadDublin [place] [id number] Protein mass conc 6.3 g/dL Normal 6.0-8.5 Compreh ensive Internal Medicine Work Phone: Comment on above: PATIENT WAS FASTINGP ERFORMED BY: ORTIZ [facility] Mvakxp5451 [address] RoadDublin [place] [id number] Sodium molar conc 141 mmol/L Normal 134-144 Compreh ensive Internal Medicine Work Phone: Comment on above: PATIENT WAS FASTINGP ERFORMED BY: CB [facility] Auuhxx9744 [address] RoadDublin [place] [id number] Urea nitrogen mass conc 11 mg/dL Normal 8-27 [facility] Work Phone: Comment on above: PATIENT WAS FASTINGP ERFORMED BY: ORTIZ [facility] Pjagjq9154 [address] RoadDublin [place] [id number] Urea nitrogen/Creatinine mass ratio 12 mg/mg Normal 11-26 [facility] Work Phone: Comment on above: PATIENT WAS FASTINGP ERFORMED BY: CB [facility] Kdquzi7026 [address] RoadDublin [place] [id number] MICROALBUMINOrdered By: [employer] Router on 10-19-2014 Albumin DL <= 20 mg/L mass conc (U) 10.7 ug/mL Normal 0.0-17.0 [facility] Work Phone: Comment on above: PATIENT WAS FASTINGP ERFORMED BY: CB [facility] Nzjbht0713 [address] RoadDublin [place] [id number] Albumin/Creatinine mass ratio (U) 8.1 {mg/g_creat} Normal 0.0-30.0 [facility] Work Phone: Comment on above: PATIENT WAS FASTINGP ERFORMED BY: CB [facility] Dydrjh3782 [address] RoadDublin [place] [id number] Creatinine mass conc (U) 132.3 mg/dL Normal 15.0-278.0 [facility] Work Phone: Comment on above: PATIENT WAS FASTINGP ERFORMED BY: ORTIZ [facility] Bfcxpr6721 [address] RoadDublin [place] [id number] TSH ([id number])Ordered By: Samantha [employer] Router on 10-19-2014 Thyrotropin Qn 1.170 {uIU/mL} Normal 0.450-4.50 0 [facility] Work Phone: Comment on above: PATIENT WAS FASTINGP ERFORMED BY: CB [facility] Izooed4670 [address] RoadDublin [place] [id number] URINALYSIS, W/ MICRO ([id number]) Ordered By: Derrick Engineer on 10-19-2014 Appearance Nom (U) Clear Normal Compre hensive Internal Medicine Work Phone: Comment on above: PATIENT WAS FASTINGP ERFORMED BY: CB [facility] Ynkqfo7915 [address] RoadDublin [place] [id number] Bilirubin Ql (U) Negative Normal Comprehe nsive Internal Medicine Work Phone: Comment on above: PATIENT WAS FASTINGP ERFORMED BY: CB [facility] Hbbzky5905 [address] RoadDublin [place] [id number] Color Nom (U) Yellow Normal Comprehensi ve Internal Medicine Work Phone: Comment on above: PATIENT WAS FASTINGP ERFORMED BY: ORTIZ Chester[address]Dublin [place] [id number] Glucose Ql (U) Negative Normal Comprehens trupti Internal Medicine Work Phone: Comment on above: PATIENT WAS FASTINGP ERFORMED BY: ORTIZ Chester[address]Dublin [place] [id number] Hemoglobin Ql (U) Negative Normal Compreh ensive Internal Medicine Work Phone: Comment on above: PATIENT WAS FASTINGP ERFORMED BY: ORTIZ Chester[address]Dublin [place] [id number] Ketones Ql (U) Negative Normal Comprehens trupti Internal Medicine Work Phone: Comment on above: PATIENT WAS FASTINGP ERFORMED BY: ORTIZ Chester[address]Dublin [place] [id number] Leukocyte esterase Test strip Ql (U) Negative Normal [facility] Work Phone: Comment on above: PATIENT WAS FASTINGP ERFORMED BY: ORTIZ Chester[address] [place] [id number] Microscopic observation LM Nom (Urine sed) See below: Normal [facility] Work Phone: Comment on above: Microscopic was derrick cated and was performed. PATIENT WAS FASTINGP ERFORMED BY: ORTIZ Crowelin6[address] RoadDublin [place] [id number] Microscopic observation LM Nom (Urine sed) MICRON Normal [facility] Work Phone: Comment on above: Microscopic follows if indicated. PATIENT WAS FASTINGP ERFORMED BY: ORTIZ Crowelin6[address]Dublin [place] [id number] Nitrite Ql (U) Negative Normal Comprehens trupti Internal Medicine Work Phone: Comment on above: PATIENT WAS FASTINGP ERFORMED BY: ORTIZ Crowelin6[address] RoadDublin [place] [id number] pH (U) 7.0 [pH] Normal 5.0-7.5 [facility] Work Phone: Comment on above: PATIENT WAS FASTINGP ERFORMED BY: ORTIZ Crowelin6[address]Dublin [place] [id number] Protein Ql (U) Trace Normal Comprehens trupti Internal Medicine Work Phone: Comment on above: PATIENT WAS FASTINGP ERFORMED BY: ORTIZ LabCoaustyn Ojpcwl6760 [address] RoadDublin [place] [id number] Specific gravity Relative Density (U) 1.017 1 Normal 1.005-1.03 0 [facility] Work Phone: Comment on above: PATIENT WAS FASTINGP ERFORMED BY: ORTIZ Munguia Ayyzgr1151 [address] RoadDublin [place] [id number] Urobilinogen Test strip mass conc (U) 0.2 mg/dL Normal 0.0-1.9 Comprehensiv e Internal Medicine Work Phone: Comment on above: PATIENT WAS FASTINGP ERFORMED BY: ORTIZ Hourp Cloqya9[address] RoadDublin [place] [id number] Vitamin D Hydroxy (36443)Ord ered By: Derrick Engineer on 10-19-2014 25-Hydroxyvitamin D2+25-Hydroxyvitamin D3 mass conc 39.6 ng/mL Normal 30.0-100.0 [facility] Work Phone: Comment on above: Vitamin D deficiency has been defined by the [place] ofMedicine and an Endocrine Society practice guideline as alevel of serum 25-OH vitamin D less than 20 ng/mL (1,2).The Endocrine Society went on to further define vitamin Dinsufficiency as a level between 21 and 29 ng/mL (2).1. IOM ([place] of Medicine). 2010. Dietary reference intakes for calcium and D. [place]: The National Academies Press.2. Allie MF, Emile NC, Natalie POOLE, et al. Evaluation, treatment, and prevention of vitamin D deficiency: an Endocrine Society clinical practice guideline. JCEM. 2010; 96(7):1911-30. PATIENT WAS FASTINGP ERFORMED BY: ORTIZ [facility] Rbmxum5913 [address] RoadDublin [place] [id number] FECAL OCCULT HGB ASSAY- tube s sent home (31368)Ordered By: Cady Huber on 10-12-2014 Hemoglobin.gastrointes tinal Ql (St) Negative Normal [facility] Work Phone: Office Visit: [facility] 10-10-19 15 cardiac risk group C Invalid Interpretation Code [employer] Work Phone: General cardiovascular disease 10Y risk [#] [place].D'Agostino N/A Invalid Interpretation Code [employer] Work Phone: Replaced Document: Escobar ROMERO Observationson 10-10-2014 electrocardiogram interpretation Sinus Bradycardia WITHIN NORMAL LIMITS Invalid Interpretation Code [employer] Work Phone: GE use only - for [employer] import when terms are not otherwise specified 438 ms Invalid Interpretation Code [employer] Work Phone: P wave axis, electrocardiogram 33 deg Invalid Interpretation Code [employer] [facility] [employer] Work Phone: PA interval, electrocardiogram 164 ms Invalid Interpretation Code [employer] Work Phone: Pulse (Heart Rate) 55 /min Invalid Interpretation Code [employer] Work Phone: QRS axis, electrocardiogram 7 deg Invalid Interpretation Code [employer] Work Phone: QRS duration, electrocardiogram 90 ms Invalid Interpretation Code [employer] Work Phone: QT interval, electrocardiogram new path ms Invalid Interpretation Code [employer] Work Phone: T wave axis, electrocardiogram 41 deg Invalid Interpretation Code [employer] Work Phone: CBC WITH MANUAL DIFF ([id number]) Ordered By: Derrick Engineer on 06-26-2014 Basophils #/vol (Bld) 0.0 {x10E3/uL} Normal 0.0-0.2 [facility] Work Phone: Comment on above: PATIENT WAS FASTINGP ERFORMED BY: ORTIZ [facility] Gginoj8204 [facility] [id number] Information: [id number] Basophils/100 WBC (Bld) 1 % Normal [facility] Work Phone: Comment on above: PATIENT WAS FASTINGP ERFORMED BY: [place] 3664470 [facility] [id number] Information: [id number] Eosinophils #/vol (Bld) 0.2 {x10E3/uL} Normal 0.0-0.4 [facility] Work Phone: Comment on above: PATIENT WAS FASTINGP ERFORMED BY: [address] [id number] Information: [id number] Eosinophils/100 WBC (Bld) 3 % Normal [facility] Work Phone: Comment on above: PATIENT WAS FASTINGP ERFORMED BY: [address] [id number] Information: [id number] Erythrocyte distribution width Ratio (RBC) 13.4 % Normal 12.3-15.4 [facility] Work Phone: Comment on above: PATIENT WAS FASTINGP ERFORMED BY: [address] [id number] Information: [id number] Hematocrit Volume Fraction (Bld) 40.5 % Normal 34.0-46.6 [facility] Work Phone: Comment on above: PATIENT WAS FASTINGP ERFORMED BY: [address] [id number] Information: [id number] Hemoglobin mass conc (Bld) 13.1 g/dL Normal 11.1-15.9 [facility] Work Phone: Comment on above: PATIENT WAS FASTINGP ERFORMED BY: [place] 3664470 [facility] [id number] Information: [id number] Immature granulocytes #/vol (Bld) 0.0 {x10E3/uL} Normal 0.0-0.1 [facility] Work Phone: Comment on above: PATIENT WAS FASTINGP ERFORMED BY: [place] 3664470 [facility] [id number] Information: [id number] Immature granulocytes/100 WBC (Bld) 0 % Normal [facility] Work Phone: Comment on above: PATIENT WAS FASTINGP ERFORMED BY: [address] [id number] Information: [id number] Lymphocytes #/vol (Bld) 1.1 {x10E3/uL} Normal 0.7-3.1 [facility] Work Phone: Comment on above: PATIENT WAS FASTINGP ERFORMED BY: [address] [id number] Information: [id number] Lymphocytes/100 WBC (Bld) 21 % Normal [facility] Work Phone: Comment on above: PATIENT WAS FASTINGP ERFORMED BY: [address] [id number] Information: [id number] MCH Entitic mass (RBC) 29.4 pg Normal 26.6-33.0 [facility] Internal Medicine Work Phone: Comment on above: PATIENT WAS FASTINGP ERFORMED BY: [address] [id number] Information: [id number] MCHC mass conc (RBC) 32.3 g/dL Normal 31.5-35.7 [facility] Internal Medicine Work Phone: Comment on above: PATIENT WAS FASTINGP ERFORMED BY: [place] 3664470 [facility] [id number] Information: [id number] MCV Entitic volume (RBC) 91 fL Normal 79-97 [facility] Work Phone: Comment on above: PATIENT WAS FASTINGP ERFORMED BY: [address] [id number] Information: [id number] Monocytes #/vol (Bld) 0.5 {x10E3/uL} Normal 0.1-0.9 [facility] Work Phone: Comment on above: PATIENT WAS FASTINGP ERFORMED BY: [facility]6370 [facility] [id number] Information: [id number] Monocytes/100 WBC (Bld) 10 % Normal [facility] Work Phone: Comment on above: PATIENT WAS FASTINGP ERFORMED BY: [place] 3664470 [facility] [id number] Information: [id number] Neutrophils #/vol (Bld) 3.7 {x10E3/uL} Normal 1.4-7.0 [facility] Work Phone: Comment on above: PATIENT WAS FASTINGP ERFORMED BY: [facility]6370 [facility] [id number] Information: [id number] Neutrophils/100 WBC (Bld) 65 % Normal [facility] Work Phone: Comment on above: PATIENT WAS FASTINGP ERFORMED BY: [facility]6370 [facility] [id number] Information: [id number] Platelets #/vol (Bld) 198 {x10E3/uL} Normal 150-379 [facility] Work Phone: Comment on above: PATIENT WAS FASTINGP ERFORMED BY: LabCoSt. Francis Medical CenterCjooda5928 [facility] [id number] Information: [id number] RBC #/vol (Bld) 4.45 {x10E6/uL} Normal 3.77-5.28 [facility] Internal Medicine Work Phone: Comment on above: PATIENT WAS FASTINGP ERFORMED BY: LabMymich[facility] Center6370 [facility] [id number] Information: [id number] WBC #/vol (Bld) 5.6 {x10E3/uL} Normal 3.4-10.8 [facility] ehensive Internal Medicine Work Phone: Comment on above: PATIENT WAS FASTINGP ERFORMED BY: ORTIZ IPXBo[facility] Center Uccrsf7208 [facility] [id number] Information: [id number] LIPID PANEL (11962)Ordered B y: Derrick Engineer on 06-26-2014 Cholesterol in HDL mass conc 46 mg/dL Normal [facility] Work Phone: Comment on above: According to ATP-III Guidelines, HDL-C >59 mg/dL is considered anegative risk factor for CHD. PATIENT WAS FASTINGP ERFORMED BY: ORTIZ [employer] Gfyzht[address] [employer] SARLCentral Carolina Hospital [id number] Cholesterol in LDL mass conc 130 mg/dL Abnormal 0-99 [facility] Work Phone: Comment on above: PATIENT WAS FASTINGP ERFORMED BY: ORTIZ Double the DonationSt. Francis Medical CenterYlrwzp[address] [place] [address] [id number] Cholesterol in LDL/Cholesterol in HDL mass ratio 2.8 {ratio_units} Normal 0.0-3.2 [facility] Work Phone: Comment on above: LDL/HDL Ratio Men Wo men 1/2 Avg.Risk 1.0 1.5 Avg.Risk 3.6 3.2 2X Avg.Risk 6.2 5.0 3X Avg.Risk 8.0 6.1 PATIENT WAS FASTINGP ERFORMED BY: ORTIZ Double the DonationEmily Ville [id number] [facility] [id number] Cholesterol in VLDL mass conc 41 mg/dL Abnormal 5-40 [facility] Work Phone: Comment on above: PATIENT WAS FASTINGP ERFORMED BY: ORTIZ Double the DonationSt. Francis Medical CenterUmbkqb8041 Golden [facility] [id number] Cholesterol mass conc 217 mg/dL Abnormal 100-199 Com prehensive Internal Medicine Work Phone: Comment on above: PATIENT WAS FASTINGP ERFORMED BY: ORTIZ IPXMymichigan Medical Center[address] [place], [place] [address]ox [facility] [id number] Triglyceride mass conc 203 mg/dL Abnormal 0-149 [facility] Internal Medicine Work Phone: Comment on above: PATIENT WAS FASTINGP ERFORMED BY: ORTIZ Nilda Crowelin6370 Rodriguez [facility] [id number] METABOLIC PANEL, COMPREHENSI VE ([id number])Ordered By: Derrick Engineer on 06-26-2014 Albumin mass conc 4.0 g/dL Normal 3.5-4.8 Compreh [facility] Internal Medicine Work Phone: Comment on above: PATIENT WAS FASTINGP ERFORMED BY: ORTIZ LabCo Lctlbw5026 Rodriguez [facility] [id number] Albumin/Globulin mass ratio 1.7 {ratio} Normal 1.1-2.5 [facility] Internal Medicine Work Phone: Comment on above: PATIENT WAS FASTINGP ERFORMED BY: ORTIZ [facility] Aqgyty2869 [facility] [id number] ALP enzyme act/vol 80 [iU]/L Normal 39-117 [facility] Internal Medicine Work Phone: Comment on above: PATIENT WAS FASTINGP ERFORMED BY: ORTIZ [facility] Isqycx9265 [facility] [id number] ALT enzyme act/vol 8 [iU]/L Normal 0-32 [facility] Internal Medicine Work Phone: Comment on above: PATIENT WAS FASTINGP ERFORMED BY: ORTIZ [facility] Mtwhgp3309 Rodriguez [facility] [id number] AST enzyme act/vol 10 [iU]/L Normal 0-40 [facility] Internal Medicine Work Phone: Comment on above: PATIENT WAS FASTINGP ERFORMED BY: ORTIZ [facility] Uiyzwb0041 Rodriguez [facility] [id number] Bilirubin mass conc 0.3 mg/dL Normal 0.0-1.2 [facility] Internal Medicine Work Phone: Comment on above: PATIENT WAS FASTINGP ERFORMED BY: ORTIZ [facility] Cowzjd8389 [facility] [id number] Calcium mass conc 9.4 mg/dL Normal 8.6-10.2 Compreh ensive Internal Medicine Work Phone: Comment on above: PATIENT WAS FASTINGP ERFORMED BY: ORTIZ MeenaAleksandr Lybbxe5518 Rodriguez [facility] [place] [id number] Chloride molar conc 100 mmol/L Normal 97-108 Compr ehensive Internal Medicine Work Phone: Comment on above: PATIENT WAS FASTINGP ERFORMED BY: ORTIZ Crowelin6370 [address] [facility] [id number] CO2 molar conc 26 mmol/L Normal 18-29 Comprehens trupti Internal Medicine Work Phone: Comment on above: PATIENT WAS FASTINGP ERFORMED BY: ORTIZ Crowelin6370 [facility] [id number] Creatinine mass conc 0.80 mg/dL Normal 0.57-1.00 Comp rehensive Internal Medicine Work Phone: Comment on above: PATIENT WAS FASTINGP ERFORMED BY: ORTIZ rCowelin6370 [facility] [id number] GFR/1.73 sq M predicted among blacks CKD-EPI vol rate/area (S/P/Bld) 83 mL/min/1.73 Normal [facility] Work Phone: Comment on above: PATIENT WAS FASTINGP ERFORMED BY: ORTIZ LabAleksandr CroweKeifnl9887 [facility] [id number] GFR/1.73 sq M predicted among non-blacks CKD-EPI vol rate/area (S/P/Bld) 72 mL/min/1.73 Normal Comprehensiv e Internal Medicine Work Phone: Comment on above: PATIENT WAS FASTINGP ERFORMED BY: ORTIZ LabCoaustyn CroweVxampb8201 [address] [facility] [id number] Globulin mass conc (S) 2.3 g/dL Normal 1.5-4.5 [facility] Work Phone: Comment on above: PATIENT WAS FASTINGP ERFORMED BY: ORTIZ LabCoaustyn CroweUcinhw9035 [facility] [id number] Glucose mass conc 90 mg/dL Normal 65-99 Compreh ensive Internal Medicine Work Phone: Comment on above: PATIENT WAS FASTINGP ERFORMED BY: ORTIZ Ameyaaustyn CroweSmcbcj8593 [address] [facility] [id number] Potassium molar conc 4.0 mmol/L Normal 3.5-5.2 Comp rehensive Internal Medicine Work Phone: Comment on above: PATIENT WAS FASTINGP ERFORMED BY: ORTIZ [facility] Jnofmj6121 [facility] [id number] Protein mass conc 6.3 g/dL Normal 6.0-8.5 Compreh ensive Internal Medicine Work Phone: Comment on above: PATIENT WAS FASTINGP ERFORMED BY: ORTIZ [facility] Hospitalaustyn CroweMlqxhc1642 [facility] [id number] Sodium molar conc 142 mmol/L Normal 134-144 Compreh ensive Internal Medicine Work Phone: Comment on above: PATIENT WAS FASTINGP ERFORMED BY: ORTIZ [facility] Iycvjb8860 [facility] [id number] Urea nitrogen mass conc 10 mg/dL Normal 8-27 [facility] Work Phone: Comment on above: PATIENT WAS FASTINGP ERFORMED BY: ORTIZ [facility] Igotuc4098 [facility] [id number] Urea nitrogen/Creatinine mass ratio 13 mg/mg Normal 11-26 [facility] Work Phone: Comment on above: PATIENT WAS FASTINGP ERFORMED BY: ORTIZ LabM[facility]ich[facility] Center6370 [facility] [id number] MICROALBUMINOrdered By: Syst em [employer] Boards Router on 06-26-2014 Albumin DL <= 20 mg/L mass conc (U) 12.3 ug/mL Normal 0.0-17.0 [facility] Work Phone: Comment on above: PATIENT WAS FASTINGP ERFORMED BY: ORTIZ LabM[facility]ich[facility] Center6370 [facility] [id number] Albumin/Creatinine mass ratio (U) 7.0 {mg/g_creat} Normal 0.0-30.0 [facility] Work Phone: Comment on above: PATIENT WAS FASTINGP ERFORMED BY: ORTIZ LabAleksandr CroweGswzic0519 Rodriguez RoadDublin [place] [id number] Creatinine mass conc (U) 176.5 mg/dL Normal 15.0-278.0 [facility] Work Phone: Comment on above: PATIENT WAS FASTINGP ERFORMED BY: ORTIZ [facility] Seofou6534 Rodriguez Roadblin [place] [id number] TSH ([id number])Ordered By: TxCelle m [employer] Router on 06-26-2014 Thyrotropin Qn 1.220 {uIU/mL} Normal 0.450-4.50 0 [facility] Work Phone: Comment on above: PATIENT WAS FASTINGP ERFORMED BY: ORTIZ LabAleksandr CroweMgxnjw7539 Rodriguez Roadblin [place] [id number] URINALYSIS, W/ MICRO ([id number]) Ordered By: Derrick Engineer on 06-26-2014 Appearance Nom (U) Clear Normal Compre hensive Internal Medicine Work Phone: Comment on above: PATIENT WAS FASTINGP ERFORMED BY: ORTIZ LabAleksandr CroweQlxbyy7707 [address] RoadDublin [place] [id number] Bilirubin Ql (U) Negative Normal Comprehe nsive Internal Medicine Work Phone: Comment on above: PATIENT WAS FASTINGP ERFORMED BY: ORTIZ LabAleksandr CroweJqbpie7640 Rodriguez RoadDublin [place] [id number] Color Nom (U) Yellow Normal Comprehensi ve Internal Medicine Work Phone: Comment on above: PATIENT WAS FASTINGP ERFORMED BY: ORTIZ [facility] Vtmkkn1523 Rodriguez RoadDublin [place] [id number] Glucose Ql (U) Negative Normal Comprehens trupti Internal Medicine Work Phone: Comment on above: PATIENT WAS FASTINGP ERFORMED BY: ORTIZ [facility] Nsaxyu3780 [address] RoadDublin [place] [id number] Hemoglobin Ql (U) Negative Normal Compreh ensive Internal Medicine Work Phone: Comment on above: PATIENT WAS FASTINGP ERFORMED BY: ORTIZ [facility] Tdqswz5419 [address] RoadDublin [place] [id number] Ketones Ql (U) Negative Normal Comprehens trupti Internal Medicine Work Phone: Comment on above: PATIENT WAS FASTINGP ERFORMED BY: ORTIZ [facility] Triyaa3533 [address] RoadDublin [place] [id number] Leukocyte esterase Test strip Ql (U) Negative Normal [facility] Work Phone: Comment on above: PATIENT WAS FASTINGP ERFORMED BY: ORTIZ [facility] Lgtsof7267 [address] RoadDublin [place] [id number] Microscopic observation LM Nom (Urine sed) See below: Normal [facility] Work Phone: Comment on above: Microscopic was derrick cated and was performed. PATIENT WAS FASTINGP ERFORMED BY: ORTIZ [facility] Ddrtgn8631 Rodriguez RoadDublin [place] [id number] Microscopic observation LM Nom (Urine sed) MICRON Normal [facility] Work Phone: Comment on above: Microscopic follows if indicated. PATIENT WAS FASTINGP ERFORMED BY: ORTIZ [facility] Auxfht5218 Rodriguez RoadDublin [place] [id number] Nitrite Ql (U) Negative Normal Comprehens trupti Internal Medicine Work Phone: Comment on above: PATIENT WAS FASTINGP ERFORMED BY: ORTIZ [facility] Ckvkxy4127 [address] RoadDublin [place] [id number] pH (U) 5.5 [pH] Normal 5.0-7.5 [facility] Work Phone: Comment on above: PATIENT WAS FASTINGP ERFORMED BY: CB [facility] Obcitd6457 [address] RoadDublin [place] [id number] Protein Ql (U) Negative Normal Comprehens trupti Internal Medicine Work Phone: Comment on above: PATIENT WAS FASTINGP ERFORMED BY: ORTIZ [facility] Ialavg0580 [address] RoadDublin [place] [id number] Specific gravity Relative Density (U) 1.020 1 Normal 1.005-1.03 0 [facility] Work Phone: Comment on above: PATIENT WAS FASTINGP ERFORMED BY: ORTIZ Double [employer]ation Tervqm2804 MaxxAthleteUNC Health Lenoir [id number] Urobilinogen Test strip mass conc (U) 0.2 mg/dL Normal 0.0-1.9 Comprehensiv e Internal Medicine Work Phone: Comment on above: PATIENT WAS FASTINGP ERFORMED BY: ORTIZ [employer] Iemfsy9406 Rodriguez [employer] SARLCentral Carolina Hospital [id number] Vitamin D Hydroxy (13081)Ord ered By: Derrick Engineer on 06-26-2014 25-Hydroxyvitamin D2+25-Hydroxyvitamin D3 mass conc 38.9 ng/mL Normal 30.0-100.0 [facility] Work Phone: Comment on above: Vitamin D deficiency has been defined by the [place] of[place]icine and an Endocrine Society practice guideline as alevel of serum 25-OH vitamin D less than 20 ng/mL (1,2).The Endocrine Society went on to further define vitamin Dinsufficiency as a level between 21 and 29 ng/mL (2).1. IOM ([place] of Medicine). 2010. Dietary reference intakes for calcium and D. [place]: The National Academies Press.2. Allie MF, Emile NC, Natalie POOLE, et al. Evaluation, treatment, and prevention of vitamin D deficiency: an Endocrine Society clinical practice guideline. JCEM. 2010; 96(7):1911-30. PATIENT WAS FASTINGP ERFORMED BY: [employer]6370 [address] Candy LabUNC Health Lenoir [id number] URINE IBRAHIMA CULTURE-IDENTIFICA [place] ([id number])Ordered By: Derrick Engineer on 04-17-2014 Bacteria identified Cx Nom (U) Escherichia coli Abnormal [facility] Work Phone: Comment on above: Greater than 100,000 colony forming units per mL PATIENT NOT FASTINGP ERFORMED BY: ORTIZ [employer] Ldkguc1791 [facility] [id number] Information: [id number] Bacteria identified Cx Nom (U) Final report Abnormal [facility] Work Phone: Comment on above: PATIENT NOT FASTINGP ERFORMED BY: [facility] Ljztvw5513 Rodriguez RoadDublin [place] [id number] Information: [id number] Other Antibiotic [facility] prehensive Internal Medicine Work Phone: Comment on above: S = Susceptibl e; I = Intermediate; R = Resistant P = Positive; N = Negative MICS are expressed in micrograms per mL Antibiotic RSLT#1 RSLT#2 RSLT#3 RSLT#4Amoxicillin/Clavulanic Acid SAmpicillin SCefepime SCeftriaxone SCefuroxime SCephalothin SCiprofloxacin SErtapenem SGentamicin SImipenem SLevofloxacin SNitrofurantoin SPiperacillin STetracycline STobramycin STrimethoprim/Sulfa S PATIENT NOT FASTINGP ERFORMED BY: [facility] Htnxmu9838 Rodriguez RoadDublin [place] [id number] Information: [id number] Urinalysis, Office ([id number])Or dered By: Alyson Dixon on 04-17-2014 Bilirubin [...] Medicine Work Phone: CBC WITH MANUAL DIFF ([id number]) Ordered By: Derrick Engineer on 04-06-2014 Basophils #/vol (Bld) 0.0 {x10E3/uL} Normal 0.0-0.2 [facility] Work Phone: Comment on above: PATIENT NOT FASTINGP ERFORMED BY: CB [facility] Ewtdgp5740 Rodriguez RoadDublin [place] [id number] Information: [id number] Basophils/100 WBC (Bld) 0 % Normal 0-3 [facility] Work Phone: Comment on above: PATIENT NOT FASTINGP ERFORMED BY: CB [facility] Xsbhfl5425 Rodriguez RoadDublin [place] [id number] Information: [id number] Eosinophils #/vol (Bld) 0.1 {x10E3/uL} Normal 0.0-0.4 [facility] Work Phone: Comment on above: PATIENT NOT FASTINGP ERFORMED BY: CB [facility] Xabpny3891 Rodriguez RoadDublin [place] [id number] Information: [id number] Eosinophils/100 WBC (Bld) 2 % Normal 0-5 [facility] Work Phone: Comment on above: PATIENT NOT FASTINGP ERFORMED BY: CB [facility] Nwtpmj7993 Rodriguez Roadblin [place] [id number] Information: 374395,[id number] Erythrocyte distribution width Ratio (RBC) 13.5 % Normal 12.3-15.4 [facility] Work Phone: Comment on above: PATIENT NOT FASTINGP ERFORMED BY: CB [facility] Cqnvaa6552 Rodriguez RoadDublin [place] [id number] Information: [id number],[id number] Hematocrit Volume Fraction (Bld) 38.1 % Normal 34.0-46.6 [facility] Work Phone: Comment on above: PATIENT NOT FASTINGP ERFORMED BY: CB [facility] Iddwys1247 Rodriguez RoadDublin [place] [id number] Information: [id number],[id number] Hemoglobin mass conc (Bld) 12.8 g/dL Normal 11.1-15.9 [facility] Work Phone: Comment on above: PATIENT NOT FASTINGP ERFORMED BY: ORTIZ Hou Sbtcwm6725 [facility] [id number] Information: [id number] Immature granulocytes #/vol (Bld) 0.0 {x10E3/uL} Normal 0.0-0.1 [facility] Work Phone: Comment on above: PATIENT NOT FASTINGP ERFORMED BY: [address] [id number] Information: [id number] Immature granulocytes/100 WBC (Bld) 0 % Normal 0-2 [facility] Work Phone: Comment on above: PATIENT NOT FASTINGP ERFORMED BY: [address] [id number] Information: [id number],[id number] Lymphocytes #/vol (Bld) 1.5 {x10E3/uL} Normal 0.7-3.1 [facility] Work Phone: Comment on above: PATIENT NOT FASTINGP ERFORMED BY: Meena[address] [id number] Information: [id number],[id number] Lymphocytes/100 WBC (Bld) 26 % Normal 14-46 [facility] Work Phone: Comment on above: PATIENT NOT FASTINGP ERFORMED BY: [address] [id number] Information: [id number] MCH Entitic mass (RBC) 31.1 pg Normal 26.6-33.0 [facility] Internal Medicine Work Phone: Comment on above: PATIENT NOT FASTINGP ERFORMED BY: [address] [id number] Information: [id number] MCHC mass conc (RBC) 33.6 g/dL Normal 31.5-35.7 Comp [facility] Internal Medicine Work Phone: Comment on above: PATIENT NOT FASTINGP ERFORMED BY: ORTIZ Chester6370 [facility] [id number] Information: [id number] MCV Entitic volume (RBC) 93 fL Normal 79-97 [facility] Work Phone: Comment on above: PATIENT NOT FASTINGP ERFORMED BY: ORTIZ Hou Aqcumd34[address] [id number] Information: [id number],[id number] Monocytes #/vol (Bld) 0.5 {x10E3/uL} Normal 0.1-0.9 [facility] Work Phone: Comment on above: PATIENT NOT FASTINGP ERFORMED BY: [address] [id number] Information: [id number] Monocytes/100 WBC (Bld) 9 % Normal 4-12 [facility] Work Phone: Comment on above: PATIENT NOT FASTINGP ERFORMED BY: ORTIZ Hou Isjpfm307[address] [id number] Information: [id number],[id number] Neutrophils #/vol (Bld) 3.5 {x10E3/uL} Normal 1.4-7.0 [facility] Work Phone: Comment on above: PATIENT NOT FASTINGP ERFORMED BY: ORTIZ Robledo[address] [id number] Information: [id number] Neutrophils/100 WBC (Bld) 63 % Normal 40-74 [facility] Work Phone: Comment on above: PATIENT NOT FASTINGP ERFORMED BY: ORTIZ [address] [id number] Information: [id number],[id number] Platelets #/vol (Bld) 193 {x10E3/uL} Normal 150-379 [facility] Work Phone: Comment on above: PATIENT NOT FASTINGP ERFORMED BY: CB [facility] Rfzotx6140 [address] [facility] Systemblin [place] [id number] Information: [id number] RBC #/vol (Bld) 4.12 {x10E6/uL} Normal 3.77-5.28 [facility] Internal [facility] Work Phone: Comment on above: PATIENT NOT FASTINGP ERFORMED BY: CB [facility] Etdwwv2317 [address] [facility] [place] [id number] Information: [id number],[id number] WBC #/vol (Bld) 5.6 {x10E3/uL} Normal 3.4-10.8 [facility] Internal Medicine Work Phone: Comment on above: PATIENT NOT FASTINGP ERFORMED BY: CB [facility] Sgneel3916 [address] [facility] [id number] Information: 395759,[id number] LIPID PANEL (48532)Ordered B y: Derrick Engineer on 04-06-2014 Cholesterol in HDL mass conc 54 mg/dL Normal [facility] Work Phone: Comment on above: According to ATP-III Guidelines, HDL-C >59 mg/dL is considered anegative risk factor for CHD. PATIENT NOT FASTINGP ERFORMED BY: CB [facility] Uugpjw0860 [address] [facility]in [place] [id number] Cholesterol in LDL mass conc 63 mg/dL Normal 0-99 [facility] Work Phone: Comment on above: PATIENT NOT FASTINGP ERFORMED BY: CB [facility] Vbttck3735 [address] [facility]in [place] [id number] Cholesterol in LDL/Cholesterol in HDL mass ratio 1.2 {ratio_units} Normal 0.0-3.2 [facility] Work Phone: Comment on above: PATIENT NOT FASTINGP ERFORMED BY: CB [facility] Hnnjpn3400 [address] [facility]in [place] [id number] Cholesterol in VLDL mass conc 41 mg/dL Abnormal 5-40 [facility] Work Phone: Comment on above: PATIENT NOT FASTINGP ERFORMED BY: ORTIZ [facility] Lfrfun5592 [address] [facility] [id number] Cholesterol mass conc 158 mg/dL Normal 100-199 Com prehensive Internal Medicine Work Phone: Comment on above: PATIENT NOT FASTINGP ERFORMED BY: ORTIZ LabCoaustyn CroweLpcvoj7106 Rodriguez [facility] [id number] Triglyceride mass conc 206 mg/dL Abnormal 0-149 Co mprehensive Internal Medicine Work Phone: Comment on above: PATIENT NOT FASTINGP ERFORMED BY: ORTIZ [facility] Roqjxm2001 [address] [facility] [id number] METABOLIC PANEL, COMPREHENSI VE (43830)Ordered By: Derrick Engineer on 04-06-2014 Albumin mass conc 4.3 g/dL Normal 3.5-4.8 Compreh [facility] Internal Medicine Work Phone: Comment on above: PATIENT NOT FASTINGP ERFORMED BY: ORTIZ LabCoaustyn CroweUrnpbn6860 [facility] [id number] Albumin/Globulin mass ratio 2.2 {ratio} Normal 1.1-2.5 [facility] Work Phone: Comment on above: PATIENT NOT FASTINGP ERFORMED BY: ORTIZ LabCoaustyn CroweSibimk8106 [facility] [id number] ALP enzyme act/vol 87 [iU]/L Normal 39-117 [facility] Internal Medicine Work Phone: Comment on above: PATIENT NOT FASTINGP ERFORMED BY: ORTIZ [facility] Jouqcz8057 [facility] [id number] ALT enzyme act/vol 14 [iU]/L Normal 0-32 Compre [facility] Internal Medicine Work Phone: Comment on above: PATIENT NOT FASTINGP ERFORMED BY: ORTIZ [facility] Jebgzh7800 [address] [facility] [id number] AST enzyme act/vol 18 [iU]/L Normal 0-40 [facility] Internal Medicine Work Phone: Comment on above: PATIENT NOT FASTINGP ERFORMED BY: ORTIZ [facility] Lksogj8484 [address] RoadDublin [place] [id number] Bilirubin mass conc 0.3 mg/dL Normal 0.0-1.2 Compr ehensive Internal Medicine Work Phone: Comment on above: PATIENT NOT FASTINGP ERFORMED BY: ORTIZ [facility] Cxcumw5617 [address] RoadDublin [place] [id number] Calcium mass conc 10.0 mg/dL Normal 8.6-10.2 Compreh ensive Internal Medicine Work Phone: Comment on above: PATIENT NOT FASTINGP ERFORMED BY: ORTIZ [facility] Bdvpst0978 [address] RoadDublin [place] [id number] Chloride molar conc 101 mmol/L Normal 97-108 Compr ehensive Internal Medicine Work Phone: Comment on above: PATIENT NOT FASTINGP ERFORMED BY: ORTIZ [facility] Fedvqe5330 [address] RoadDublin [place] [id number] CO2 molar conc 28 mmol/L Normal 18-29 Comprehens trupti Internal Medicine Work Phone: Comment on above: PATIENT NOT FASTINGP ERFORMED BY: ORTIZ [facility] Kjlvdy0927 [address] RoadDublin [place] [id number] Creatinine mass conc 0.73 mg/dL Normal 0.57-1.00 Comp [facility] Internal Medicine Work Phone: Comment on above: PATIENT NOT FASTINGP ERFORMED BY: ORTIZ [facility] Elrdbd9547 Rodriguez RoadDublin [place] [id number] GFR/1.73 sq M predicted among blacks CKD-EPI vol rate/area (S/P/Bld) 94 mL/min/1.73 Normal [facility] Work Phone: Comment on above: PATIENT NOT FASTINGP ERFORMED BY: CB [facility] Pbnyef3383 [address] RoadDublin [place] [id number] GFR/1.73 sq M predicted among non-blacks CKD-EPI vol rate/area (S/P/Bld) 81 mL/min/1.73 Normal Comprehensiv e Internal Medicine Work Phone: Comment on above: PATIENT NOT FASTINGP ERFORMED BY: ORTIZ [facility] Ripxjp1718 [address] RoadDublin [place] [id number] Globulin mass conc (S) 2.0 g/dL Normal 1.5-4.5 [facility] Work Phone: Comment on above: PATIENT NOT FASTINGP ERFORMED BY: ORTIZ [facility] Blazrg1106 [address] RoadDublin [place] [id number] Glucose mass conc 87 mg/dL Normal 65-99 Compreh ensive Internal Medicine Work Phone: Comment on above: PATIENT NOT FASTINGP ERFORMED BY: ORTIZ [facility] Syzizi2941 [address] RoadDublin [place] [id number] Potassium molar conc 5.0 mmol/L Normal 3.5-5.2 Comp [facility] Internal Medicine Work Phone: Comment on above: PATIENT NOT FASTINGP ERFORMED BY: ORTIZ [facility] Ghotvh1292 [address] RoadDublin [place] [id number] Protein mass conc 6.3 g/dL Normal 6.0-8.5 Compreh ensive Internal Medicine Work Phone: Comment on above: PATIENT NOT FASTINGP ERFORMED BY: ORTIZ [facility] Ojdjkf2524 [address] RoadDublin [place] [id number] Sodium molar conc 142 mmol/L Normal 134-144 Compreh ensive Internal Medicine Work Phone: Comment on above: PATIENT NOT FASTINGP ERFORMED BY: ORTIZ [facility] Agpmlo9263 [address] RoadDublin [place] [id number] Urea nitrogen mass conc 12 mg/dL Normal 8-27 [facility] Work Phone: Comment on above: PATIENT NOT FASTINGP ERFORMED BY: CB [facility] Flmmbl6278 [address] RoadDublin [place] [id number] Urea nitrogen/Creatinine mass ratio 16 mg/mg Normal 11-26 [facility] Work Phone: Comment on above: PATIENT NOT FASTINGP ERFORMED BY: ORTIZ [facility] Anauwd2325 [address] RoadDublin [place] [id number] TSH ([id number])Ordered By: Samantha Montelongo on 04-06-2014 Thyrotropin Qn 0.748 {uIU/mL} Normal 0.450-4.50 0 [facility] Work Phone: Comment on above: PATIENT NOT FASTINGP ERFORMED BY: ORTIZ Double the Donationaustyn ChesterKbmhcu4126 luxustravel.esCentral Carolina Hospital [id number] Vitamin D Hydroxy (91978)Ord ered By: Derrick Engineer on 04-06-2014 25-Hydroxyvitamin D2+25-Hydroxyvitamin D3 mass conc 29.5 ng/mL Abnormal 30.0-100.0 [facility] Work Phone: Comment on above: Vitamin D deficiency has been defined by the [place] of[place]icine and an Endocrine Society practice guideline as alevel of serum 25-OH vitamin D less than 20 ng/mL (1,2).The Endocrine Society went on to further define vitamin Dinsufficiency as a level between 21 and 29 ng/mL (2).1. IOM ([place] of Medicine). 2010. Dietary reference intakes for calcium and D. [place]: The National Academies Press.2. Allie MF, Emile PONCE, Natalie POOLE, et al. Evaluation, treatment, and prevention of vitamin D deficiency: an Endocrine Society clinical practice guideline. JCEM. 2010; 96(7):1911-30. PATIENT NOT FASTINGP ERFORMED BY: ORTIZ [employer] Ovusdr5740 Rodriguez [facility] [id number] CBC WITH MANUAL DIFF ([id number]) Ordered By: Derrick Engineer on 12-22-2013 Basophils #/vol (Bld) 0.0 {x10E3/uL} Normal 0.0-0.2 [facility] Work Phone: Comment on above: PATIENT NOT FASTINGP ERFORMED BY: ORTIZ [facility] Zxszec0986 [facility] [id number] Information: [id number], [id number] Basophils/100 WBC (Bld) 0 % Normal 0-3 [facility] Work Phone: Comment on above: PATIENT NOT FASTINGP ERFORMED BY: [employer] Csxjbg2363 [facility] [id number] Information: F25636, 300643 Eosinophils #/vol (Bld) 0.1 {x10E3/uL} Normal 0.0-0.4 [facility] Work Phone: Comment on above: PATIENT NOT FASTINGP ERFORMED BY: ORTIZ Chester6370 [facility] [id number] Information: J10147, 976883 Eosinophils/100 WBC (Bld) 2 % Normal 0-5 [facility] Work Phone: Comment on above: PATIENT NOT FASTINGP ERFORMED BY: ORTIZ Robledo[address] [id number] Information: P66644, 532883 Erythrocyte distribution width Ratio (RBC) 13.7 % Normal 12.3-15.4 [facility] Work Phone: Comment on above: PATIENT NOT FASTINGP ERFORMED BY: Meena[address] [id number] Information: I88931, 547745 Hematocrit Volume Fraction (Bld) 38.4 % Normal 34.0-46.6 [facility] Work Phone: Comment on above: PATIENT NOT FASTINGP ERFORMED BY: ORTIZ Hou Goyefz5448 [facility] [id number] Information: H88822, 938810 Hemoglobin mass conc (Bld) 12.8 g/dL Normal 11.1-15.9 [facility] Work Phone: Comment on above: PATIENT NOT FASTINGP ERFORMED BY: ORTIZ [facility]oM[facility]igan [facility] Center6370 [facility] [id number] Information: [id number], 785161 Immature granulocytes #/vol (Bld) 0.0 {x10E3/uL} Normal 0.0-0.1 [facility] Work Phone: Comment on above: PATIENT NOT FASTINGP ERFORMED BY: ORTIZ [facility]ledoMymichigan Medical Center6370 [facility] [id number] Information: S25897, 870105 Immature granulocytes/100 WBC (Bld) 0 % Normal 0-2 [facility] Work Phone: Comment on above: PATIENT NOT FASTINGP ERFORMED BY: ORTIZ [facility] Uxqlon8525 [facility] [id number] Information: W06641, 886138 Lymphocytes #/vol (Bld) 1.1 {x10E3/uL} Normal 0.7-3.1 [facility] Work Phone: Comment on above: PATIENT NOT FASTINGP ERFORMED BY: ORTIZ LabCoSt. Francis Medical CenterLqitjx2419 [facility] [id number] Information: K12560, 256974 Lymphocytes/100 WBC (Bld) 22 % Normal 14-46 [facility] Work Phone: Comment on above: PATIENT NOT FASTINGP ERFORMED BY: ORTIZ [facility]oBo[facility] Center Jiysdu0115 [facility] [id number] Information: R89681, 385858 MCH Entitic mass (RBC) 30.6 pg Normal 26.6-33.0 [facility] Internal Medicine Work Phone: Comment on above: PATIENT NOT FASTINGP ERFORMED BY: ORTIZ [facility] Gixiis6427 [facility] [id number] Information: R87982, 490763 MCHC mass conc (RBC) 33.3 g/dL Normal 31.5-35.7 [facility] Internal Medicine Work Phone: Comment on above: PATIENT NOT FASTINGP ERFORMED BY: LabCoSt. Francis Medical CenterNgkbza2841 [facility] [id number] Information: [id number], 460632 MCV Entitic volume (RBC) 92 fL Normal 79-97 [facility] Internal Medicine Work Phone: Comment on above: PATIENT NOT FASTINGP ERFORMED BY: ORTIZ [facility] Viyzgf0637 [facility] [id number] Information: [id number], 566892 Monocytes #/vol (Bld) 0.4 {x10E3/uL} Normal 0.1-0.9 [facility] Work Phone: Comment on above: PATIENT NOT FASTINGP ERFORMED BY: ORTIZ Chester6370 [facility] [id number] Information: [id number], 762934 Monocytes/100 WBC (Bld) 8 % Normal 4-12 [facility] Work Phone: Comment on above: PATIENT NOT FASTINGP ERFORMED BY: ORTIZ Chester6370 [facility] [id number] Information: L19443, 236380 Neutrophils #/vol (Bld) 3.3 {x10E3/uL} Normal 1.4-7.0 [facility] Work Phone: Comment on above: PATIENT NOT FASTINGP ERFORMED BY: ORTIZ Chester6370 [facility] [id number] Information: P79620, 545172 Neutrophils/100 WBC (Bld) 68 % Normal 40-74 [facility] Work Phone: Comment on above: PATIENT NOT FASTINGP ERFORMED BY: ORTIZ RobledoCo Wttqbw9720 [facility] [id number] Information: R40913, 346328 Platelets #/vol (Bld) 190 {x10E3/uL} Normal 155-379 [facility] Work Phone: Comment on above: PATIENT NOT FASTINGP ERFORMED BY: ORTIZ [facility] Sabfbv0910 [facility] [id number] Information: P19322, 777827 RBC #/vol (Bld) 4.18 {x10E6/uL} Normal 3.77-5.28 [facility] Internal Medicine Work Phone: Comment on above: PATIENT NOT FASTINGP ERFORMED BY: ORTIZ [facility] Ltmimo8077 [facility] [id number] Information: N54826, 033369 WBC #/vol (Bld) 4.8 {x10E3/uL} Normal 3.4-10.8 [facility] Internal Medicine Work Phone: Comment on above: PATIENT NOT FASTINGP ERFORMED BY: Eleven James Dsrveb1827 Rodriguez [employer] SARLCarepartners Rehabilitation Hospitalin [place] [id number] Information: N35413, 470934 D-Dimer (51554)Ordered By: Dc keithtem [employer] Router on 12-22-2013 D-Dimer (54343) 0.40 {ug_FEU/mL} Normal 0.00-0.49 [facility] Internal Medicine Work Phone: Comment on above: In conjunction with a non-high clinical probability assessment, anormal (<0.50 ug FEU/mL) result excludes deep vein thrombosis (DVT)and pulmonary embolism (PE) with high sensitivity. PATIENT NOT FASTINGP ERFORMED BY: Eleven James Hvtuib5884 Rodriguez [facility] LabUNC [facility] Lenoir [id number] PT (Prothrobim Time) (72898) Ordered By: Derrick Engineer on 12-22-2013 INR Coag RelTime (PPP) 1.0 {INR} Normal 0.8-1.2 [facility] Internal Medicine Work Phone: Comment on above: Reference interval i s for non-anticoagulated patients. . Suggested INR therapeutic range for Vitamin K antagonist therapy: Standard Dose (moderate intensity therapeutic range): 2.0 - 3.0 Higher intensity therapeutic range 2.5 - 3.5 PATIENT NOT FASTINGP ERFORMED BY: Eleven James Dnkrsc7438 luxustravel.[facility]Central [facility] [id number] Prothrombin time (PT) Coag time (PPP) 10.6 {sec} Normal 9.1-12.0 [facility] Internal Medicine Work Phone: Comment on above: PATIENT NOT FASTINGP ERFORMED BY: Eleven James Yyhysy8718 Rodriguez [employer] SARLCentral Carolina Hospital [id number] PTT (Activated Partial Throm boplastin Time) (54747)Ordered By: Derrick Engineer on 12-22-2013 aPTT Coag time (PPP) 26 {sec} Normal 24-33 [facility] Internal Medicine Work Phone: Comment on above: This test has not be en validated for monitoring unfractionated heparintherapy. aPTT-based therapeutic ranges for unfractionated heparintherapy have not been established. For general guidelines onHeparin monitoring, refer to the [facility] Directory of Services. PATIENT NOT FASTINGP ERFORMED BY: ORTIZ Hou Xvovhj8670 [facility] [id number] MICROALBUMINOrdered By: Syst em [employer]outer on 12-05-2013 Albumin DL <= 20 mg/L mass conc (U) 23.2 ug/mL Abnormal 0.0-17.0 [facility] Work Phone: Comment on above: PATIENT NOT FASTINGP ERFORMED BY: [place] 3664470 [facility] [id number] Albumin/Creatinine mass ratio (U) 14.1 {mg/g_creat} Normal 0.0-30.0 [facility] Work Phone: Comment on above: PATIENT NOT FASTINGP ERFORMED BY: [facility] [place] [address] [id number] Creatinine mass conc (U) 164.8 mg/dL Normal 15.0-278.0 [facility] Work Phone: Comment on above: PATIENT NOT FASTINGP ERFORMED BY: [facility] Vbviqx1959 [facility] [id number] URINALYSIS, W/ MICRO (80290) Ordered By: Derrick Engineer on 12-05-2013 Appearance Nom (U) Cloudy Abnormal Compre [facility] Internal Medicine Work Phone: Comment on above: PATIENT NOT FASTINGP ERFORMED BY: [place] 3664470 [facility] [id number] Information: E29318 Bilirubin Ql (U) Negative Normal Comprehe nsive Internal Medicine Work Phone: Comment on above: PATIENT NOT FASTINGP ERFORMED BY: [facility] Knaueb1301 [facility] [id number] Information: N64583 Color Nom (U) Yellow Normal Comprehensi Internal Medicine Work Phone: Comment on above: PATIENT NOT FASTINGP ERFORMED BY: [place] 3664470 [facility] [id number] Information: [id number] Glucose Ql (U) Negative Normal Comprehens trupti Internal Medicine Work Phone: Comment on above: PATIENT NOT FASTINGP ERFORMED BY: ORTIZ [facility] Flthni3218 Rodriguez RoadCarepartners Rehabilitation Hospitalin [place] [id number] Information: Z43809 Hemoglobin Ql (U) Negative Normal Compreh ensive Internal Medicine Work Phone: Comment on above: PATIENT NOT FASTINGP ERFORMED BY: ORTIZ [facility] Ydwmxo8971 Rodriguez RoadCentral Carolina Hospital [id number] Information: A30880 Ketones Ql (U) Negative Normal Comprehens trupti Internal Medicine Work Phone: Comment on above: PATIENT NOT FASTINGP ERFORMED BY: [facility] Vcfldg6535 Rodriguez [facility] [id number] Information: A53464 Leukocyte esterase Test strip Ql (U) Negative Normal [facility] Work Phone: Comment on above: PATIENT NOT FASTINGP ERFORMED BY: [facility] Ixaegn6239 Rodriguez [facility] [id number] Information: Y54750 Microscopic observation LM Nom (Urine sed) See below: Normal [facility] Work Phone: Comment on above: PATIENT NOT FASTINGP ERFORMED BY: [facility] Tadcio3379 Rodriguez [facility]in [place] [id number] Information: A20560 Microscopic observation LM Nom (Urine sed) MICRON Normal [facility] Work Phone: Comment on above: Microscopic follows if indicated. PATIENT NOT FASTINGP ERFORMED BY: [facility] Safeyk4326 Rodriguez RoadCarepartners Rehabilitation Hospitalin [place] [id number] Information: E48117 Nitrite Ql (U) Negative Normal Comprehens trupti Internal Medicine Work Phone: Comment on above: PATIENT NOT FASTINGP ERFORMED BY: [facility] Initbq8890 Rodriguez RoadCarepartners Rehabilitation Hospitalin [place] [id number] Information: J08646 pH (U) 5.0 [pH] Normal 5.0-7.5 [facility] Work Phone: Comment on above: PATIENT NOT FASTINGP ERFORMED BY: ORTIZ HouEmily [place] 0269670 [facility] [id number] Information: M80028 Protein Ql (U) Negative Normal Comprehens trupti Internal Medicine Work Phone: Comment on above: PATIENT NOT FASTINGP ERFORMED BY: [address] [id number] Information: N99829 Specific gravity Relative Density (U) 1.017 1 Normal 1.005-1.03 0 [facility] Work Phone: Comment on above: PATIENT NOT FASTINGP ERFORMED BY: Meena[address] [id number] Information: E46072 Urobilinogen Test strip mass conc (U) 0.2 mg/dL Normal 0.0-1.9 Comprehensiv e Internal Medicine Work Phone: Comment on above: PATIENT NOT FASTINGP ERFORMED BY: [address] [id number] Information: [id number] CBC WITH MANUAL DIFF (28787) Ordered By: Derrick Engineer on 12-01-2013 Basophils #/vol (Bld) 0.0 {x10E3/uL} Normal 0.0-0.2 [facility] Work Phone: Comment on above: PATIENT WAS FASTINGP ERFORMED BY: [place] 3664470 [facility] [id number] Information: 627901,D13914 Basophils/100 WBC (Bld) 0 % Normal 0-3 [facility] Work Phone: Comment on above: PATIENT WAS FASTINGP ERFORMED BY: [place] 3664470 [facility] [id number] Information: 806659,P27767 Eosinophils #/vol (Bld) 0.1 {x10E3/uL} Normal 0.0-0.4 [facility] Work Phone: Comment on above: PATIENT WAS FASTINGP ERFORMED BY: [place] 3664470 [facility] [id number] Information: 584851,F60799 Eosinophils/100 WBC (Bld) 1 % Normal 0-5 [facility] Work Phone: Comment on above: PATIENT WAS FASTINGP ERFORMED BY: [address] [id number] Information: 222103,K87781 Erythrocyte distribution width Ratio (RBC) 13.5 % Normal 12.3-15.4 [facility] Work Phone: Comment on above: PATIENT WAS FASTINGP ERFORMED BY: [address] [id number] Information: 275578,L87822 Hematocrit Volume Fraction (Bld) 40.8 % Normal 34.0-46.6 [facility] Work Phone: Comment on above: PATIENT WAS FASTINGP ERFORMED BY: [address] [id number] Information: 036920,L71460 Hemoglobin mass conc (Bld) 13.2 g/dL Normal 11.1-15.9 [facility] Work Phone: Comment on above: PATIENT WAS FASTINGP ERFORMED BY: [address] [id number] Information: 037896,Z17724 Immature granulocytes #/vol (Bld) 0.0 {x10E3/uL} Normal 0.0-0.1 [facility] Work Phone: Comment on above: PATIENT WAS FASTINGP ERFORMED BY: [place] 3664470 [facility] [id number] Information: 387437,D10193 Immature granulocytes/100 WBC (Bld) 0 % Normal 0-2 [facility] Work Phone: Comment on above: PATIENT WAS FASTINGP ERFORMED BY: [facility]6370 [facility] [id number] Information: 061818,H44643 Lymphocytes #/vol (Bld) 1.4 {x10E3/uL} Normal 0.7-3.1 [facility] Work Phone: Comment on above: PATIENT WAS FASTINGP ERFORMED BY: [address] [id number] Information: 548792,O99978 Lymphocytes/100 WBC (Bld) 18 % Normal 14-46 [facility] Work Phone: Comment on above: PATIENT WAS FASTINGP ERFORMED BY: [address] [id number] Information: 429160,C15076 MCH Entitic mass (RBC) 30.1 pg Normal 26.6-33.0 [facility] Internal Medicine Work Phone: Comment on above: PATIENT WAS FASTINGP ERFORMED BY: [address] [id number] Information: 797369,R40299 MCHC mass conc (RBC) 32.4 g/dL Normal 31.5-35.7 [facility] Internal Medicine Work Phone: Comment on above: PATIENT WAS FASTINGP ERFORMED BY: [address] [id number] Information: 093170,R73266 MCV Entitic volume (RBC) 93 fL Normal 79-97 [facility] Internal Medicine Work Phone: Comment on above: PATIENT WAS FASTINGP ERFORMED BY: [address] [id number] Information: [id number],B01543 Monocytes #/vol (Bld) 0.6 {x10E3/uL} Normal 0.1-0.9 [facility] Internal Medicine Work Phone: Comment on above: PATIENT WAS FASTINGP ERFORMED BY: ORTIZ Crowelin6370 [facility] [id number] Information: 616585,A47954 Monocytes/100 WBC (Bld) 7 % Normal 4-12 [facility] Work Phone: Comment on above: PATIENT WAS FASTINGP ERFORMED BY: ORTIZ Hou Uwncnz[address] [id number] Information: 126013,T78637 Neutrophils #/vol (Bld) 5.9 {x10E3/uL} Normal 1.4-7.0 [facility] Work Phone: Comment on above: PATIENT WAS FASTINGP ERFORMED BY: ORTIZ Crowe[address] [id number] Information: [id number],N22302 Neutrophils/100 WBC (Bld) 74 % Normal 40-74 [facility] Work Phone: Comment on above: PATIENT WAS FASTINGP ERFORMED BY: ORTIZ Crowelin6370 [facility] [id number] Information: 355339,S47017 Platelets #/vol (Bld) 225 {x10E3/uL} Normal 155-379 [facility] Work Phone: Comment on above: PATIENT WAS FASTINGP ERFORMED BY: ORTIZ Crowe[address] [id number] Information: 314748,L03171 RBC #/vol (Bld) 4.38 {x10E6/uL} Normal 3.77-5.28 [facility] Internal Medicine Work Phone: Comment on above: PATIENT WAS FASTINGP ERFORMED BY: ORTIZ HouEmily [place] 0269670 [facility] [id number] Information: 921329,[id number] WBC #/vol (Bld) 8.0 {x10E3/uL} Normal 3.4-10.8 [facility] Internal Medicine Work Phone: Comment on above: PATIENT WAS FASTINGP ERFORMED BY: ORTIZ Crowelin6370 [facility] [id number] Information: 432977,S38305 LIPID PANEL (60558)Ordered B y: Derrick Engineer on 12-01-2013 Cholesterol in HDL mass conc 47 mg/dL Normal [facility] Work Phone: Comment on above: According to ATP-III Guidelines, HDL-C >59 mg/dL is considered anegative risk factor for CHD. PATIENT WAS FASTINGP ERFORMED BY: ORTIZ LabBo[facility] Iyyedr4501 [facility] [id number] Cholesterol in LDL mass conc 50 mg/dL Normal 0-99 [facility] Work Phone: Comment on above: PATIENT WAS FASTINGP ERFORMED BY: ORTIZ Ameya Bxzxdr2531 [facility] [id number] Cholesterol in LDL/Cholesterol in HDL mass ratio 1.1 {ratio_units} Normal 0.0-3.2 [facility] Work Phone: Comment on above: PATIENT WAS FASTINGP ERFORMED BY: ORTIZ LabBo[facility] Arbjtr9662 [facility] [id number] Cholesterol in VLDL mass conc 35 mg/dL Normal 5-40 [facility] Work Phone: Comment on above: PATIENT WAS FASTINGP ERFORMED BY: [facility] Wsvwix3380 [facility] [id number] Cholesterol mass conc 132 mg/dL Normal 100-199 Com prehensive Internal Medicine Work Phone: Comment on above: PATIENT WAS FASTINGP ERFORMED BY: [facility] Hsdgby1041 [facility] [id number] Triglyceride mass conc 177 mg/dL Abnormal 0-[address] josephehensive Internal Medicine Work Phone: Comment on above: PATIENT WAS FASTINGP ERFORMED BY: [facility] Fybcpd7614 [facility] [id number] Lab Report: Ordered by Dr. Saritha delgado 12-01-2013 Alanine aminotransferase (ALT) 10 U/L Invalid Interpretation Code [facility] Work Phone: Alkaline phosphatase (ALP) 76 U/L Invalid Interpretation Code [facility] Work Phone: Aspartate aminotransferase (AST) 13 U/L Invalid Interpretation Code [facility] Work Phone: METABOLIC PANEL, COMPREHENSI VE (25042)Ordered By: Derrick Engineer on 12-01-2013 Albumin mass conc 4.5 g/dL Normal 3.5-4.8 Compreh [facility] Internal Medicine Work Phone: Comment on above: PATIENT WAS FASTINGP ERFORMED BY: CB [facility] Eeeeno4936 Rodriguez RoadDublin [place] [id number] Albumin/Globulin mass ratio 2.1 {ratio} Normal 1.1-2.5 [facility] Work Phone: Comment on above: PATIENT WAS FASTINGP ERFORMED BY: CB [facility] Ektqpt5709 Rodriguez RoadDublin [place] [id number] ALP enzyme act/vol 76 [iU]/L Normal 39-117 [facility] Internal Medicine Work Phone: Comment on above: PATIENT WAS FASTINGP ERFORMED BY: CB [facility] Ytbuqp1715 Rodriguez RoadDublin [place] [id number] ALT enzyme act/vol 10 [iU]/L Normal 0-32 Compre [facility] Internal Medicine Work Phone: Comment on above: PATIENT WAS FASTINGP ERFORMED BY: CB [facility] Hpzxlb0178 Rodriguez RoadDublin [place] [id number] AST enzyme act/vol 13 [iU]/L Normal 0-40 [facility] Internal Medicine Work Phone: Comment on above: PATIENT WAS FASTINGP ERFORMED BY: CB [facility] Xoppxq0293 Rodriguez RoadDublin [place] [id number] Bilirubin mass conc 0.3 mg/dL Normal 0.0-1.2 Compr [facility] Internal Medicine Work Phone: Comment on above: PATIENT WAS FASTINGP ERFORMED BY: CB [facility] Bbwkcc9512 Rodriguez RoadDublin [place] [id number] Calcium mass conc 9.9 mg/dL Normal 8.6-10.2 Compreh ensive Internal Medicine Work Phone: Comment on above: PATIENT WAS FASTINGP ERFORMED BY: ORTIZ [facility] Svmlmw8522 Rodriguez Roadblin [place] [id number] Chloride molar conc 101 mmol/L Normal 97-108 Compr ehensive Internal Medicine Work Phone: Comment on above: PATIENT WAS FASTINGP ERFORMED BY: ORTIZ [facility] Dzzjxp7322 Rodriguez [facility] Systemblin [place] [id number] CO2 molar conc 27 mmol/L Normal 19-28 Comprehens trupti Internal Medicine Work Phone: Comment on above: PATIENT WAS FASTINGP ERFORMED BY: ORTIZ [facility] Riwswb8785 Rodriguez [facility]in [place] [id number] Creatinine mass conc 0.97 mg/dL Normal 0.57-1.00 Comp rehensive Internal Medicine Work Phone: Comment on above: PATIENT WAS FASTINGP ERFORMED BY: ORTIZ [facility] Dcnehd5899 Rodriguez [facility] [id number] GFR/1.73 sq M predicted among blacks CKD-EPI vol rate/area (S/P/Bld) 67 mL/min/1.73 Normal [facility] Work Phone: Comment on above: PATIENT WAS FASTINGP ERFORMED BY: ORTIZ [facility] Npxyne4816 Rodriguez [facility] [id number] GFR/1.73 sq M predicted among non-blacks CKD-EPI vol rate/area (S/P/Bld) 58 mL/min/1.73 Abnormal Comprehensiv e Internal Medicine Work Phone: Comment on above: PATIENT WAS FASTINGP ERFORMED BY: CB [facility] Zkxkfc1432 Rodriguez [facility]in [place] [id number] Globulin mass conc (S) 2.1 g/dL Normal 1.5-4.5 Co mprehensive Internal Medicine Work Phone: Comment on above: PATIENT WAS FASTINGP ERFORMED BY: ORTIZ [facility] Ecfzci3764 Rodriguez [facility]in [place] [id number] Glucose mass conc 99 mg/dL Normal 65-99 Compreh ensive Internal Medicine Work Phone: Comment on above: PATIENT WAS FASTINGP ERFORMED BY: ORTIZ Ameyaaustyn Zhzxwt6453 Rodriguez [facility] [id number] Potassium molar conc 4.9 mmol/L Normal 3.5-5.2 Comp rehensive Internal Medicine Work Phone: Comment on above: PATIENT WAS FASTINGP ERFORMED BY: ORTIZ LabKellie Ulxwgb6436 [facility] [id number] Protein mass conc 6.6 g/dL Normal 6.0-8.5 Compreh ensive Internal Medicine Work Phone: Comment on above: PATIENT WAS FASTINGP ERFORMED BY: ORTIZ Ameyaaustyn CroweRetkft9135 [facility] [id number] Sodium molar conc 141 mmol/L Normal 134-144 Compreh ensive Internal Medicine Work Phone: Comment on above: PATIENT WAS FASTINGP ERFORMED BY: ORTIZ RobledoBo[facility] Hospital Center Urnqiq8445 [facility] [id number] Urea nitrogen mass conc 21 mg/dL Normal 8-27 [facility] Work Phone: Comment on above: PATIENT WAS FASTINGP ERFORMED BY: ORTIZ Ameyaaustyn Nftqlg5456 [facility] [id number] Urea nitrogen/Creatinine mass ratio 22 mg/mg Normal 11-26 [facility] Work Phone: Comment on above: PATIENT WAS FASTINGP ERFORMED BY: ORTIZ Hou Dzijve6883 [facility] [id number] TSH (24412)Ordered By: Syste m [employer] on 12-01-2013 Thyrotropin Qn 1.040 {uIU/mL} Normal 0.450-4.50 0 [facility] Work Phone: Comment on above: PATIENT WAS FASTINGP ERFORMED BY: ORTIZ LabKellie Cktywo7106 [facility] [id number] URINE IBRAHIMA CULTURE (TY COL COUNT) (11022)Ordered By: Derrick Engineer on 12-01-2013 Bacteria identified Cx Nom (U) Escherichia coli Normal [facility] Work Phone: Comment on above: Greater than 100,000 colony forming units per mL PATIENT NOT FASTINGP ERFORMED BY: ORTIZ IPXCo Ophlxz4984 [facility] [id number] Information: SRC:UR [id number] Bacteria identified Cx Nom (U) Final report Normal [facility] Work Phone: Comment on above: PATIENT NOT FASTINGP ERFORMED BY: ORTIZ IPXCo Eapchp9353 [facility] [id number] Information: SRC:UR [id number] Other Antibiotic susc [facility] Normal [facility] prehensive Internal Medicine Work Phone: Comment on above: S = Susceptibl e; I = Intermediate; R = Resistant P = Positive; N = Negative MICS are expressed in micrograms per mL Antibiotic RSLT#1 RSLT#2 RSLT#3 RSLT#4Amoxicillin/Clavulanic Acid SAmpicillin SCefepime SCeftriaxone SCefuroxime SCephalothin SCiprofloxacin SErtapenem SGentamicin SImipenem SLevofloxacin SNitrofurantoin SPiperacillin STetracycline STobramycin STrimethoprim/Sulfa S PATIENT NOT FASTINGP ERFORMED BY: ORTIZ Ameya Agiwfe8995 [facility] [id number] Information: SRC:UR [id number] Urinalysis, Office (34138)Or dered By: Jacinta Patel on 12-01-2013 Bilirubin [...] Internal Medicine Work Phone: Vitamin D Hydroxy (04444)Ord ered By: Derrick Engineer on 12-01-2013 25-Hydroxyvitamin D2+25-Hydroxyvitamin D3 mass conc 38.9 ng/mL Normal 30.0-100.0 [facility] Work Phone: Comment on above: Vitamin D deficiency has been defined by the [place] ofMedicine and an Endocrine Society practice guideline as alevel of serum 25-OH vitamin D less than 20 ng/mL (1,2).The Endocrine Society went on to further define vitamin Dinsufficiency as a level between 21 and 29 ng/mL (2).1. IOM ([place] of Medicine). 2010. Dietary reference intakes for calcium and D. [place]: The National Academies Press.2. Allie MF, Emile NC, Natalie POOLE, et al. Evaluation, treatment, and prevention of vitamin D deficiency: an Endocrine Society clinical practice guideline. JCEM. 2010; 96(7):1911-30. PATIENT WAS FASTINGP ERFORMED BY: [facility]6370 [facility] [id number] Lab Report: PTon 04-19-2013 INR in blood by coagulation 1.0 {INR} Normal [facility] Work Phone: prothrombin time, actual/normal, ratio 12.8 SECONDS Normal 11.9-14.4 [facility] Work Phone: Lab Report: PTTon 04-19-2013 aPTT 29.8 s Normal 24.1-36.2 [facility] Work Phone: Replaced Document: Escobar E CG Observationson 04-19-2013 Pulse (Heart Rate) 421 ms Invalid Interpretation Code [facility] Work Phone: URINE IBRAHIMA CULTURE-TY COL C OUNT (20469)Ordered By: Derrick Engineer on 04-18-2013 Bacteria identified Cx Nom (U) Final report Normal [facility] Work Phone: Comment on above: PATIENT NOT FASTINGP ERFORMED BY: [facility] Uyzlvi4782 [address] Candy LabUNC Health Lenoir [id number] Information: SRC:UR [id number] Bacteria identified Cx Nom (U) NG36 Normal [facility] Work Phone: Comment on above: No growth in 36 - 48 hours. PATIENT NOT FASTINGP ERFORMED BY: [facility] Djlaqv9098 TenBu TechnologiesUofL Health - Medical Center South [id number] Information: SRC:UR K32652 Urinalysis, Office (65839)Or dered By: Jacinta Patel on 04-15-2013 Bilirubin [...] 02-05-20 13 Albumin 4.0 g/dL Normal 3.4-5.0 [facility] Work Phone: Bilirubin (direct) 0.12 mg/dL Normal 0.00-0.30 [facility] Work Phone: Bilirubin (total) 0.40 mg/dL Normal 0.00-1.00 [facility] Work Phone: URINE IBRAHIMA CULTURE (TY COL COUNT) (05766)Ordered By: Derrick Engineer on 09-30-2012 Bacteria identified Cx Nom (U) Escherichia coli Normal [facility] Work Phone: Comment on above: Greater than 100,000 colony forming units per mL PATIENT NOT FASTINGP ERFORMED BY: ORTIZ LabPetta Mexqfu5309 TenBu TechnologiesUofL Health - Medical Center South [id number] Information: SRC:UR [id number] Bacteria identified Cx Nom (U) Final report Normal [facility] Work Phone: Comment on above: PATIENT NOT FASTINGP ERFORMED BY: ORTIZ [employer] Muhdts7154eTecUofL Health - Medical Center South [id number] Information: SRC:UR P80417 Other Antibiotic [facility] [employer] [facility] prehensive Internal Medicine Work Phone: [...] PATIENT NOT FASTINGP ERFORMED BY: ORTIZ [facility] Ytqmqf7604 luxustravel.esCentral Carolina Hospital [id number] Information: SRC:UR M81610 Urinalysis, Office (40625)Or dered By: Alyson Dixon on 09-30-2012 Bilirubin [...] Albumin/Globulin Ratio 1.1 {ratio} Invalid Interpretation Code [facility] Work Phone: Protein 6.7 g/dL Invalid Interpretation Code [facility] Work Phone: Alkaline Phosphatase (13494) Ordered By: Derrick Engineer on 02-25-2012 ALP enzyme act/vol 67 [iU]/L Normal 25-165 [facility] Work Phone: Comment on above: PATIENT NOT FASTINGP ERFORMED BY: LabMymichigan Medical Center6370 [facility] [id number] CALCIFIDIOL (49523) VIT D 25 Ordered By: Derrick Engineer on 02-25-2012 25-Hydroxyvitamin D2+25-Hydroxyvitamin D3 mass conc 45.8 ng/mL Normal 30.0-100.0 [facility] Work Phone: Comment on above: Vitamin D deficiency has been defined by the [place] of[place]icine and an Endocrine Society practice guideline as alevel of serum 25-OH vitamin D less than 20 ng/mL (1,2).The Endocrine Society went on to further define vitamin Dinsufficiency as a level between 21 and 29 ng/mL (2).1. IOM ([place] of Medicine). 2010. Dietary reference intakes for calcium and D. [place]: The National Academies Press.2. Allie MF, Emile PONCE, Natalie POOLE, et al. Evaluation, treatment, and prevention of vitamin D deficiency: an Endocrine Society clinical practice guideline. JCEM. 2010; 96(7):1911-30. PATIENT NOT FASTINGP ERFORMED BY: ORTIZ [facility] Jmbdgr9681 Rodriguez Candy Labin [place] [id number] Information: [id number] Calcium Serum (42070)Ordered By: Derrick Engineer on 02-25-2012 Calcium mass conc 9.3 mg/dL Normal 8.6-10.2 Compreh [facility] Internal Medicine Work Phone: Comment on above: PATIENT NOT FASTINGP ERFORMED BY: ROTIZ [facility] Xnxtes7846 [address] Candy LabUNC Health Lenoir [id number] Clinical Lists Update: Prelo specialist wound care 02-16-2012 MCHC 34.6 % Invalid Interpretation Code [facility] Work Phone: CBC (AUTO) (45887)Ordered By : Derrick Engineer on 10-14-2010 Erythrocyte distribution width Ratio (RBC) 13.5 % Normal 11.7-15.0 [facility] Work Phone: Comment on above: PATIENT NOT FASTINGP ERFORMED BY: ORTIZ [facility] Utuavr4175 MaxxAthleteUNC Health Lenoir [id number] Hematocrit Volume Fraction (Bld) 40.4 % Normal 34.0-44.0 [facility] Work Phone: Comment on above: PATIENT NOT FASTINGP ERFORMED BY: [facility] Kjnids2444 [address] Lab[place] [id number] Hemoglobin mass conc (Bld) 13.7 g/dL Normal 11.5-15.0 [facility] Work Phone: Comment on above: PATIENT NOT FASTINGP ERFORMED BY: ORTIZ [facility] Juvkxj9392 [address] C[address] Labin [place] [id number] MCH Entitic mass (RBC) 29.5 pg Normal 27.0-34.0 [facility] Internal Medicine Work Phone: Comment on above: PATIENT NOT FASTINGP ERFORMED BY: ORTIZ [facility] Sgxwuh6047 Rodriguez RoadDublin [place] [id number] MCHC mass conc (RBC) 33.9 g/dL Normal 32.0-36.0 [facility] Internal Medicine Work Phone: Comment on above: PATIENT NOT FASTINGP ERFORMED BY: CB [facility] Nczxoj2951 Rodriguez RoadDublin [place] [id number] MCV Entitic volume (RBC) 87 fL Normal 80-98 [facility] Internal Medicine Work Phone: Comment on above: PATIENT NOT FASTINGP ERFORMED BY: ORTIZ [facility] Ralini8762 Rodriguez RoadDublin [place] [id number] Platelets #/vol (Bld) 280 {x10E3/uL} Normal 140-415 [facility] Internal Medicine Work Phone: Comment on above: PATIENT NOT FASTINGP ERFORMED BY: ORTIZ [facility] Qxqahs9146 [address] RoadDublin [place] [id number] RBC #/vol (Bld) 4.64 {x10E6/uL} Normal 3.80-5.10 [facility] Internal Medicine Work Phone: Comment on above: PATIENT NOT FASTINGP ERFORMED BY: ORTIZ [facility] Uzuyvu0459 [address] RoadDublin [place] [id number] WBC #/vol (Bld) 6.2 {x10E3/uL} Normal 4.0-10.5 [facility] Internal Medicine Work Phone: Comment on above: PATIENT NOT FASTINGP ERFORMED BY: ORTIZ [facility] Cnszgb4853 Rodriguez Roadblin [place] [id number] METABOLIC PANEL, COMPREHENSI VE (99018)Ordered By: Derrick Engineer on 10-14-2010 Albumin mass conc 4.4 g/dL Normal 3.5-4.8 Compreh [facility] Internal Medicine Work Phone: Comment on above: PATIENT NOT FASTINGP ERFORMED BY: ORTIZ [facility] Gvmyms0226 Rodriguez RoadDublin [place] [id number] Information: [id number] Albumin/Globulin mass ratio 1.8 {ratio} Normal 1.1-2.5 [facility] Internal Medicine Work Phone: Comment on above: PATIENT NOT FASTINGP ERFORMED BY: ORTIZ LabCoaustyn CroweWcjfok2099 [facility] [id number] Information: [id number] ALP enzyme act/vol 84 [iU]/L Normal 25-165 [facility] Internal Medicine Work Phone: Comment on above: PATIENT NOT FASTINGP ERFORMED BY: LabCoEmily Ville 0269670 [facility] [id number] Information: [id number] ALT enzyme act/vol 13 [iU]/L Normal 0-40 [facility] Internal Medicine Work Phone: Comment on above: PATIENT NOT FASTINGP ERFORMED BY: LabCoSt. Francis Medical CenterVilebc9589 [facility] [id number] Information: [id number] AST enzyme act/vol 13 [iU]/L Normal 0-40 [facility] Internal Medicine Work Phone: Comment on above: PATIENT NOT FASTINGP ERFORMED BY: ORTIZ LabCoSt. Francis Medical CenterYnzdqy0596 [facility] [id number] Information: [id number] Bilirubin mass conc 0.2 mg/dL Normal 0.0-1.2 [facility] Internal Medicine Work Phone: Comment on above: PATIENT NOT FASTINGP ERFORMED BY: LabCoSt. Francis Medical CenterZmayvh5821 [facility] [id number] Information: [id number] Calcium mass conc 10.4 mg/dL Abnormal 8.6-10.2 Compreh [facility] Internal Medicine Work Phone: Comment on above: PATIENT NOT FASTINGP ERFORMED BY: LabCo Kqaujg7988 [facility] [id number] Information: [id number] Chloride molar conc 101 mmol/L Normal 97-108 Compr ehensive Internal Medicine Work Phone: Comment on above: PATIENT NOT FASTINGP ERFORMED BY: ORTIZ LabCo Njdugt7707 [facility] [id number] Information: [id number] CO2 molar conc 28 mmol/L Normal 20-32 Comprehens [facility] Internal Medicine Work Phone: Comment on above: PATIENT NOT FASTINGP ERFORMED BY: CB LabCo Nnvygd3894 [facility] [id number] Information: [id number] Creatinine mass conc 0.70 mg/dL Normal 0.57-1.00 Comp [facility] Internal Medicine Work Phone: Comment on above: PATIENT NOT FASTINGP ERFORMED BY: ORTIZ RobledoCo Bmxcvs6696 [facility] [id number] Information: [id number],K98171 GFR/1.73 sq M predicted among blacks MDRD [...] PATIENT NOT FASTINGP ERFORMED BY: ORTIZ LabCo Oyqxhu2776 [facility] [id number] Information: [id number] GFR/1.73 sq M.predicted MDRD (S/P/Bld) [Vol rate/Area] mL/min/{1.73_m2} Normal [facility] Work Phone: Comment on above: PATIENT NOT FASTINGP ERFORMED BY: ORTIZ LabCo Soasrr5607 [facility] [id number] Information: 520342,[id number] GFR/1.73 sq M.predicted MDRD vol rate/area mL/min/{1.73_m2} Normal [facility] Work Phone: Comment on above: PATIENT NOT FASTINGP ERFORMED BY: ORTIZ Nilda Chester6370 [facility] [id number] Information: [id number],[id number] Globulin mass conc (S) 2.5 g/dL Normal 1.5-4.5 [facility] hospitalensive [facility] Work Phone: Comment on above: PATIENT NOT FASTINGP ERFORMED BY: ORTIZ Ameya Qsokxs5525 [facility] [id number] Information: [id number] Glucose mass conc 88 mg/dL Normal 65-99 Compreh ensive Internal Medicine Work Phone: Comment on above: PATIENT NOT FASTINGP ERFORMED BY: ORTIZ Ameya Wtqlbk9498 [facility] [id number] Information: [id number] Potassium molar conc 4.6 mmol/L Normal 3.5-5.2 Comp [facility] Internal Medicine Work Phone: Comment on above: PATIENT NOT FASTINGP ERFORMED BY: ORTIZ Ameya Nfhfod8506 [facility] [id number] Information: [id number] Protein mass conc 6.9 g/dL Normal 6.0-8.5 Compreh ensive Internal Medicine Work Phone: Comment on above: PATIENT NOT FASTINGP ERFORMED BY: ORTIZ MeenaScott Ville 5158570 [facility] [id number] Information: [id number] Sodium molar conc 140 mmol/L Normal 135-145 Compreh ensive Internal Medicine Work Phone: Comment on above: PATIENT NOT FASTINGP ERFORMED BY: ORTIZ Ameya Aeanyn2267 [facility] [id number] Information: [id number] Urea nitrogen mass conc 9 mg/dL Normal 8-27 [facility] Work Phone: Comment on above: PATIENT NOT FASTINGP ERFORMED BY: ORTIZ [facility] Gniece3824 Rodriguez RoadDublin [place] [id number] Information: [id number] Urea nitrogen/Creatinine mass ratio 13 mg/mg Normal 11- [facility] Work Phone: Comment on above: PATIENT NOT FASTINGP ERFORMED BY: ORTZI LabCo Lrxcus2014 [address] Roadblin [place] [id number] Information: [id number] TSH (60544)Ordered By: Syste m [employer] Router on 10-14-2010 Thyrotropin Qn 1.320 {uIU/mL} Normal 0.450-4.50 0 [facility] Work Phone: Comment on above: PATIENT NOT FASTINGP ERFORMED BY: ORTIZ LabCo Ouagjl7403 [address] Roadblin [place] [id number] URINALYSIS W/O MICRO (49253) Ordered By: Derrick Engineer on 10-14-2010 Appearance Nom (U) Clear Normal Compre hensive Internal Medicine Work Phone: Comment on above: PATIENT NOT FASTINGP ERFORMED BY: ORTIZ LabCo Cvkyda6633 [address] RoadDublin [place] [id number] Bilirubin Ql (U) Negative Normal Comprehe nsive Internal Medicine Work Phone: Comment on above: PATIENT NOT FASTINGP ERFORMED BY: ORTIZ LabCo Fjwjgr5902 [address] RoadDublin [place] [id number] Color Nom (U) Yellow Normal Comprehensi ve Internal Medicine Work Phone: Comment on above: PATIENT NOT FASTINGP ERFORMED BY: [facility] Nsrptg7766 [address] RoadDublin [place] [id number] Glucose Ql (U) Negative Normal Comprehens trupti Internal Medicine Work Phone: Comment on above: PATIENT NOT FASTINGP ERFORMED BY: ORTIZ [facility] Hoebpz3477 Rodriguez RoadDublin [place] [id number] Hemoglobin Ql (U) Negative Normal Compreh ensive Internal Medicine Work Phone: Comment on above: PATIENT NOT FASTINGP ERFORMED BY: ORTIZ [facility] Zymakk7398 [address] RoadDublin [place] [id number] Ketones Ql (U) Negative Normal Comprehens trupti Internal Medicine Work Phone: Comment on above: PATIENT NOT FASTINGP ERFORMED BY: ORTIZ MeenaAleksandr CroweQhntqq4316 [facility] [id number] Leukocyte esterase Test strip Ql (U) Negative Normal [facility] Work Phone: Comment on above: PATIENT NOT FASTINGP ERFORMED BY: ORTIZ Chester6370 [facility] [id number] Microscopic observation LM Nom (Urine sed) MICRON Normal [facility] Work Phone: Comment on above: Microscopic follows if indicated. PATIENT NOT FASTINGP ERFORMED BY: ORTIZ Crowelin6370 [facility] [id number] Nitrite Ql (U) Negative Normal Comprehens trupti Internal Medicine Work Phone: Comment on above: PATIENT NOT FASTINGP ERFORMED BY: ORTIZ Crowelin6370 [facility] [id number] pH (U) 6.5 [pH] Normal 5.0-7.5 [facility] Work Phone: Comment on above: PATIENT NOT FASTINGP ERFORMED BY: ORTIZ Crowelin6370 [facility] [id number] Protein Ql (U) Negative Normal Comprehens trupti Internal Medicine Work Phone: Comment on above: PATIENT NOT FASTINGP ERFORMED BY: ORTIZ Crowelin6370 [facility] [id number] Specific gravity Relative Density (U) 1.020 1 Normal 1.005-1.03 0 [facility] Work Phone: Comment on above: PATIENT NOT FASTINGP ERFORMED BY: ORTIZ Crowelin6370 [facility] [id number] Urobilinogen Test strip mass conc (U) 0.2 mg/dL Normal 0.0-1.9 Comprehensiv e Internal Medicine Work Phone: Comment on above: PATIENT NOT FASTINGP ERFORMED BY: ORTIZ Chester6370 [facility] [place] [id number] VITAMIN B-12 (CYANOCOBALAMIN ) (37145)Ordered By: Derrick Engineer on 10-14-2010 Cobalamin (Vitamin B12) mass conc 246 pg/mL Normal 211-946 [facility] Work Phone: Comment on above: PATIENT NOT FASTINGP ERFORMED BY: ORTIZ Hou Nfnxxc1545 [facility] [id number] LIPID PANEL (47647)Ordered B y: Derrick Engineer on 12-14-2009 Cholesterol in HDL mass conc 54 mg/dL Normal [facility] Work Phone: Comment on above: According to ATP-III Guidelines, HDL-C >59 mg/dL is considered anegative risk factor for CHD. PATIENT WAS FASTINGP ERFORMED BY: ORTIZ Hou Oouavj4995 [facility] [id number] Information: [id number] Cholesterol in LDL mass conc 111 mg/dL Abnormal 0-99 [facility] Work Phone: Comment on above: PATIENT WAS FASTINGP ERFORMED BY: ORTIZ Hou Jpphss9210 [facility] [id number] Information: [id number] Cholesterol in LDL/Cholesterol in HDL mass ratio 2.1 {ratio_units} Normal 0.0-3.2 [facility] Work Phone: Comment on above: PATIENT WAS FASTINGP ERFORMED BY: ORTIZ Hou Vxpojo5691 [facility] [id number] Information: [id number] Cholesterol in VLDL mass conc 21 mg/dL Normal 5-40 [facility] Work Phone: Comment on above: PATIENT WAS FASTINGP ERFORMED BY: ORTIZ Hou Cfwpru5463 [facility] [id number] Information: [id number] Cholesterol mass conc 186 mg/dL Normal 100-199 [facility] prehensive Internal Medicine Work Phone: Comment on above: PATIENT WAS FASTINGP ERFORMED BY: LabCoSt. Francis Medical CenterUbpsdu3426 [facility] [id number] Information: [id number] Triglyceride mass conc 103 mg/dL Normal 0-149 [facility] Work Phone: Comment on above: PATIENT WAS FASTINGP ERFORMED BY: [place] 3664470 [facility] [id number] Information: [id number] TSH (77213)Ordered By: Syste m [employer] Router on 12-14-2009 Thyrotropin Qn 1.680 {uIU/mL} Normal 0.450-4.50 0 [facility] Work Phone: Comment on above: PATIENT WAS FASTINGP ERFORMED BY: [facility]6370 [facility] [id number] CBC WITH MANUAL DIFF (99506) Ordered By: Derrick Engineer on 12-13-2009 Basophils #/vol (Bld) 0.0 {x10E3/uL} Normal 0.0-0.2 [facility] Work Phone: Comment on above: PATIENT NOT FASTINGP ERFORMED BY: LabScott Ville 5158570 [facility] [id number] Information: [id number] Basophils/100 WBC (Bld) 0 % Normal 0-3 [facility] Work Phone: Comment on above: PATIENT NOT FASTINGP ERFORMED BY: LabMymichigan Medical Center6370 [facility] [id number] Information: [id number] Eosinophils #/vol (Bld) 0.0 {x10E3/uL} Normal 0.0-0.4 [facility] Work Phone: Comment on above: PATIENT NOT FASTINGP ERFORMED BY: LabMymichigan Medical Center6370 [facility] [id number] Information: [id number] Eosinophils/100 WBC (Bld) 0 % Normal 0-7 [facility] Work Phone: Comment on above: PATIENT NOT FASTINGP ERFORMED BY: ORTIZ Hou Hkfbbr5251 [facility] [id number] Information: [id number],[id number] Erythrocyte distribution width Ratio (RBC) 13.9 % Normal 11.7-15.0 [facility] Work Phone: Comment on above: PATIENT NOT FASTINGP ERFORMED BY: ORTIZ Robledo[address] [id number] Information: [id number] Hematocrit Volume Fraction (Bld) 38.9 % Normal 34.0-44.0 [facility] Work Phone: Comment on above: PATIENT NOT FASTINGP ERFORMED BY: ORTIZ Hou Uoefbd1387 [facility] [id number] Information: [id number] Hemoglobin mass conc (Bld) 13.7 g/dL Normal 11.5-15.0 [facility] Work Phone: Comment on above: PATIENT NOT FASTINGP ERFORMED BY: ORTIZ RobledoScott Ville 5158570 [facility] [id number] Information: [id number] Lymphocytes #/vol (Bld) 1.3 {x10E3/uL} Normal 0.7-4.5 [facility] Work Phone: Comment on above: PATIENT NOT FASTINGP ERFORMED BY: ORTIZ [address] [id number] Information: [id number] Lymphocytes/100 WBC (Bld) 20 % Normal 14-46 [facility] Work Phone: Comment on above: PATIENT NOT FASTINGP ERFORMED BY: ORTIZ RobledoScott Ville 5158570 [facility] [id number] Information: [id number] MCH Entitic mass (RBC) 31.3 pg Normal 27.0-34.0 [facility] Internal Medicine Work Phone: Comment on above: PATIENT NOT FASTINGP ERFORMED BY: ORTIZ RobledoCo Icrqwo2606 [address] [facility] [id number] Information: [id number] MCHC mass conc (RBC) 35.2 g/dL Normal 32.0-36.0 [facility] Internal Medicine Work Phone: Comment on above: PATIENT NOT FASTINGP ERFORMED BY: ORTIZ LabCo Ztlwyc9526 [address] [facility] [id number] Information: [id number] MCV Entitic volume (RBC) 89 fL Normal 80-98 [facility] Work Phone: Comment on above: PATIENT NOT FASTINGP ERFORMED BY: ORTIZ Hou Mpwmzd9845 [facility] [id number] Information: [id number] Monocytes #/vol (Bld) 0.4 {x10E3/uL} Normal 0.1-1.0 [facility] Work Phone: Comment on above: PATIENT NOT FASTINGP ERFORMED BY: [facility]Bo[facility] Qowsan9396 [facility] [id number] Information: [id number] Monocytes/100 WBC (Bld) 6 % Normal 4-13 [facility] Work Phone: Comment on above: PATIENT NOT FASTINGP ERFORMED BY: MeenaCoSt. Francis Medical CenterRbmiqm1641 [facility] [id number] Information: [id number] Neutrophils #/vol (Bld) 5.0 {x10E3/uL} Normal 1.8-7.8 [facility] Work Phone: Comment on above: PATIENT NOT FASTINGP ERFORMED BY: ORTIZ LabCoSt. Francis Medical CenterCtppkt8726 [facility] [id number] Information: [id number] Neutrophils/100 WBC (Bld) 74 % Normal 40-74 [facility] Work Phone: Comment on above: PATIENT NOT FASTINGP ERFORMED BY: LabCoEmily [place] [id number] [facility] [id number] Information: [id number] Platelets #/vol (Bld) 228 {x10E3/uL} Normal 140-415 [facility] Work Phone: Comment on above: PATIENT NOT FASTINGP ERFORMED BY: ORTIZ [id number] [facility] [id number] Information: [id number] RBC #/vol (Bld) 4.38 {x10E6/uL} Normal 3.80-5.10 [facility] Work Phone: Comment on above: PATIENT NOT FASTINGP ERFORMED BY: ORTIZ Nilda Chester6370 [facility] [id number] Information: [id number] WBC #/vol (Bld) 6.7 {x10E3/uL} Normal 4.0-10.5 [facility] Work Phone: Comment on above: PATIENT NOT FASTINGP ERFORMED BY: ORTIZ Ameya [id number] [facility] [id number] Information: [id number] METABOLIC PANEL, COMPREHENSI VE ([id number])Ordered By: Derrick Engineer on 12-13-2009 Albumin mass conc 4.1 g/dL Normal 3.5-4.8 Compreh [facility] Internal Medicine Work Phone: Comment on above: PATIENT NOT FASTINGP ERFORMED BY: ORTIZ Hou [id number] [facility] [id number] Albumin/Globulin mass ratio 1.7 {ratio} Normal 1.1-2.5 [facility] Work Phone: Comment on above: PATIENT NOT FASTINGP ERFORMED BY: ORTIZ LabKellie [id number] [facility] [id number] ALP enzyme act/vol 82 [iU]/L Normal 25-165 Compre [facility] Internal Medicine Work Phone: Comment on above: PATIENT NOT FASTINGP ERFORMED BY: ORTIZ [facility] [id number] [facility] [id number] ALT enzyme act/vol 12 [iU]/L Normal 0-40 Compre [facility] Internal Medicine Work Phone: Comment on above: PATIENT NOT FASTINGP ERFORMED BY: CB [facility] [id number] [address] RoadDublin [place] [id number] AST enzyme act/vol 19 [iU]/L Normal 0-40 Compre [facility] Internal Medicine Work Phone: Comment on above: PATIENT NOT FASTINGP ERFORMED BY: CB [facility] [id number] Rodriguez Roadblin [place] [id number] Bilirubin mass conc 0.2 mg/dL Normal 0.1-1.2 Compr ensive Internal Medicine Work Phone: Comment on above: PATIENT NOT FASTINGP ERFORMED BY: CB [facility] [id number] [address] RoadCarepartners Rehabilitation Hospitalin [place] [id number] Calcium mass conc 9.6 mg/dL Normal 8.6-10.2 Compreh [facility] Work Phone: Comment on above: PATIENT NOT FASTINGP ERFORMED BY: CB [facility] [id number] Rodriguez RoadCarepartners Rehabilitation Hospitalin [place] [id number] Chloride molar conc 104 mmol/L Normal 97-108 Compr [facility] Internal Medicine Work Phone: Comment on above: PATIENT NOT FASTINGP ERFORMED BY: CB [facility] [id number] [facility] [place] [id number] CO2 molar conc 25 mmol/L Normal 20-32 Comprehens trupti Internal Medicine Work Phone: Comment on above: PATIENT NOT FASTINGP ERFORMED BY: CB [facility] [id number] [address] RoadDublin [place] [id number] Creatinine mass conc 0.71 mg/dL Normal 0.57-1.00 [facility] Work Phone: Comment on above: PATIENT NOT FASTINGP ERFORMED BY: CB [facility] [id number] [address] RoadDublin [place] [id number] GFR/1.73 sq M predicted among blacks MDRD [...] PATIENT NOT FASTINGP ERFORMED BY: CB [facility] Kisbab1092 [address] RoadDublin [place] [id number] GFR/1.73 sq M.predicted MDRD (S/P/Bld) [Vol rate/Area] mL/min/{1.73_m2} Normal [facility] Work Phone: Comment on above: PATIENT NOT FASTINGP ERFORMED BY: CB [facility] [id number] [address] RoadDublin [place] [id number] GFR/1.73 sq M.predicted MDRD vol rate/area mL/min/{1.73_m2} Normal [facility] Work Phone: Comment on above: PATIENT NOT FASTINGP ERFORMED BY: CB [facility] [id number] [address] RoadDublin [place] [id number] Globulin mass conc (S) 2.4 g/dL Normal 1.5-4.5 [facility] Work Phone: Comment on above: PATIENT NOT FASTINGP ERFORMED BY: CB [facility] [id number] [address] Roadbl[address] [place] [id number] Glucose mass conc 89 mg/dL Normal 65-99 Compreh ensive Internal Medicine Work Phone: Comment on above: PATIENT NOT FASTINGP ERFORMED BY: CB [facility] [id number] [address] RoadDublin [place] [id number] Potassium molar conc 5.0 mmol/L Normal 3.5-5.2 [facility] Work Phone: Comment on above: PATIENT NOT FASTINGP ERFORMED BY: CB [facility] [id number] [address] RoadDublin [place] [id number] Protein mass conc 6.5 g/dL Normal 6.0-8.5 Compreh ensive Internal Medicine Work Phone: Comment on above: PATIENT NOT FASTINGP ERFORMED BY: ORTIZ [facility] [id number] [address] Candy LabUNC [facility]oir [id number] Sodium molar conc 142 mmol/L Normal 135-145 Compreh ensive Internal Medicine Work Phone: Comment on above: PATIENT NOT FASTINGP ERFORMED BY: ORTIZ [facility] [id number] [address] Candy LabUNC Health Lenoir [id number] Urea nitrogen mass conc 10 mg/dL Normal 5- [facility] Work Phone: Comment on above: PATIENT NOT FASTINGP ERFORMED BY: ORTIZ [facility] [id number] [address] C[address] LabUNC Health Lenoir [id number] Urea nitrogen/Creatinine mass ratio 14 mg/mg Normal 8- [facility] Work Phone: Comment on above: PATIENT NOT FASTINGP ERFORMED BY: ORTIZ [facility] [id number] [address] Candy LabUNC Health Lenoir [id number] Urinalysis, Office ([id number])Or dered By: Radha Velez on 09-21-2008 Bilirubin [...] Bacteria identified Cx Nom (U) Escherichia coli [facility] Work Phone: Vital Signs Date Time Vital Sign Value Performing Clinician Facility 06-28-2025 23:29-0400 Body temperature 98 [degF] Dr. Yesika Faust MD Work Phone: [facility] 06-28-2025 23:29-0400 Diastolic blood pressure 89 mm[Hg] Dr. Yesika Faust MD Work Phone: [facility] 06-28-2025 23:29-0400 Heart rate 65 /min Dr. Yesika Faust MD Work Phone: [facility] 06-28-2025 23:29-0400 Respiratory rate 18 /min Dr. Yesika Faust MD Work Phone: [facility] 06-28-2025 23:29-0400 SaO2% (BldA) [Mass fraction] 94 % Dr. Yesika Faust MD Work Phone: [facility] 06-28-2025 23:29-0400 Systolic blood pressure 129 mm[Hg] Dr. Yesika Faust MD Work Phone: [facility] 06-28-2025 19:24-0400 Body height 157.[address] Yesika Faust MD Work Phone: [facility] 03-02-2025 18:29-0400 Body height 157.[address] Yesika Faust MD Work Phone: [facility] 05-05-2019 10:14-0400 BMI (Body Mass Index) 33.02 kg/m2 Mirella Solano trupti Internal Medicine Work Phone: 05-05-2019 10:14-0400 Body weight 74.16 kg Mirella Mccracken [facility] Internal Medicine Work Phone: 05-05-2019 10:14-0400 BP Diastolic 80 mm[Hg] Mirella Mccracken [facility] Internal Medicine Work Phone: Comment on above: Patient Position: Sitting; Cuff Location : Left Arm; Cuff Size: Large 05-05-2019 10:14-0400 BP Systolic 138 mm[Hg] Mirella Mccracken [facility] Internal Medicine Work Phone: Comment on above: Patient Position: Sitting; Cuff Location : Left Arm; Cuff Size: Large 05-05-2019 10:14-0400 BSA (Body Surface Area) 1.69 m2 Mirella Mccracken [facility] Internal Medicine Work Phone: 05-05-2019 10:14-0400 Height 149.86 cm Mirella Mccracken [facility] Internal Medicine Work Phone: 05-05-2019 10:14-0400 Pulse (Heart Rate) 68 /min Mirella Mccracken [facility] Internal Medicine Work Phone: Comment on above: Pattern: Regular 05-05-2019 10:14-0400 Pulse Oximetry 95 % Mirella Mccracken [facility] Internal Medicine Work Phone: Comment on above: Room air 05-05-2019 10:14-0400 Respiratory Rate 18 /min Mirella Mccracken [facility] Internal Medicine Work Phone: Comment on above: Pattern: Unlabored 03-15-2019 09:59-0400 BMI (Body Mass Index) 33.4 kg/m2 Mirella Solano [facility] Medicine Work Phone: 03-15-2019 09:59-0400 Body weight 75.01 kg Mirella Mccracken [facility] Internal Medicine Work Phone: 03-15-2019 09:59-0400 BP Diastolic 82 mm[Hg] Mirella Mccracken [facility] Internal Medicine Work Phone: Comment on above: Patient Position: Sitting; Cuff Location : Left Arm; Cuff Size: Large 03-15-2019 09:59-0400 BP Systolic 168 mm[Hg] Mirella Mccracken [facility] Internal Medicine Work Phone: Comment on above: Patient Position: Sitting; Cuff Location : Left Arm; Cuff Size: Large 03-15-2019 09:59-0400 BSA (Body Surface Area) 1.7 m2 Mirella Mccracken [facility] Internal Medicine Work Phone: 03-15-2019 09:59-0400 Height 149.86 cm Mirella Mccracken [facility] Internal Medicine Work Phone: 03-15-2019 09:59-0400 Pulse (Heart Rate) 88 /min Mirella Mccracken [facility] Internal Medicine Work Phone: Comment on above: Pattern: Regular 03-15-2019 09:59-0400 Pulse Oximetry 98 % Mirella Mccracken [facility] Internal Medicine Work Phone: Comment on above: Room air 03-15-2019 09:59-0400 Respiratory Rate 18 /min Mirella Mccracken [facility] Internal Medicine Work Phone: Comment on above: Pattern: Unlabored 01-21-2018 08:25-0400 BMI (Body Mass Index) 29.34 kg/m2 Mirella Mccracken [facility] Internal Medicine Work Phone: 01-21-2018 08:25-0400 Body weight 65.89 kg Mirella Mccracken [facility] Internal Medicine Work Phone: 01-21-2018 08:25-0400 BP Diastolic 84 mm[Hg] Mirella Mccracken [facility] Internal Medicine Work Phone: Comment on above: Patient Position: Sitting; Cuff Location : Left Arm; Cuff Size: Large 01-21-2018 08:25-0400 BP Systolic 128 mm[Hg] Mirella Mccracken [facility] Internal Medicine Work Phone: Comment on above: Patient Position: Sitting; Cuff Location : Left Arm; Cuff Size: Large 01-21-2018 08:25-0400 BSA (Body Surface Area) 1.61 m2 Mirella Mccracken [facility] Internal Medicine Work Phone: 01-21-2018 08:25-0400 Height 149.86 cm Mirella Mccracken [facility] Internal Medicine Work Phone: 01-21-2018 08:25-0400 Pulse (Heart Rate) 84 /min Mirella Mccracken [facility] Internal Medicine Work Phone: Comment on above: Pattern: Regular 01-21-2018 08:25-0400 Pulse Oximetry 98 % Mirella Mccracken [facility] Internal Medicine Work Phone: Comment on above: Room air 01-21-2018 08:25-0400 Respiratory Rate 18 /min Mirella Mccracken [facility] Internal Medicine Work Phone: Comment on above: Pattern: Unlabored 01-21-2018 08:25-0400 Weight 65.89 kg Mirella Mccracken [facility] Internal Medicine Work Phone: 11-09-2017 14:35-0500 BMI (Body Mass Index) 28.91 kg/m2 Mirella Mccracken [facility] Internal Medicine Work Phone: 11-09-2017 14:35-0500 Body weight 64.92 kg Mirella Mccracken [facility] Internal Medicine Work Phone: 11-09-2017 14:35-0500 BP Diastolic 90 mm[Hg] Mirella Mccracken [facility] Internal Medicine Work Phone: Comment on above: Patient Position: Sitting; Cuff Location : Left Arm; Cuff Size: Large 11-09-2017 14:35-0500 BP Systolic 148 mm[Hg] Mirella Mccracken [facility] Internal Medicine Work Phone: Comment on above: Patient Position: Sitting; Cuff Location : Left Arm; Cuff Size: Large 11-09-2017 14:35-0500 BSA (Body Surface Area) 1.6 m2 Mirella Mccracken [facility] Internal Medicine Work Phone: 11-09-2017 14:35-0500 Height 149.86 cm Mirella Mccracken [facility] Internal Medicine Work Phone: 11-09-2017 14:35-0500 Pulse (Heart Rate) 67 /min Mirella Mccracken [facility] Internal Medicine Work Phone: Comment on above: Pattern: Regular 11-09-2017 14:35-0500 Pulse Oximetry 98 % Mirella Mccracken [facility] Internal Medicine Work Phone: Comment on above: Room air 11-09-2017 14:35-0500 Respiratory Rate 18 /min Mirella Mccracken [facility] Internal Medicine Work Phone: Comment on above: Pattern: Unlabored 11-09-2017 14:35-0500 Weight 64.92 kg Mirella Mccracken [facility] Internal Medicine Work Phone: 10-15-2017 09:58-0500 BMI (Body Mass Index) 28.91 kg/m2 Mirella Mccracken [facility] Internal Medicine Work Phone: 10-15-2017 09:58-0500 Body weight 64.92 kg Mirella Mccracken [facility] Internal Medicine Work Phone: 10-15-2017 09:58-0500 BP Diastolic 78 mm[Hg] Mirella Mccracken [facility] Internal Medicine Work Phone: Comment on above: Patient Position: Sitting; Cuff Location : Left Arm; Cuff Size: Large 10-15-2017 09:58-0500 BP Systolic 146 mm[Hg] Mirella Mccracken [facility] Internal Medicine Work Phone: Comment on above: Patient Position: Sitting; Cuff Location : Left Arm; Cuff Size: Large 10-15-2017 09:58-0500 BSA (Body Surface Area) 1.6 m2 Mirella Mccracken [facility] Internal Medicine Work Phone: 10-15-2017 09:58-0500 Height 149.86 cm Mirella Mccracken [facility] Internal Medicine Work Phone: 10-15-2017 09:58-0500 Pulse (Heart Rate) 74 /min Mirella Mccracken [facility] Internal Medicine Work Phone: Comment on above: Pattern: Regular 10-15-2017 09:58-0500 Pulse Oximetry 99 % Mirella Mccracken [facility] Internal Medicine Work Phone: Comment on above: Room air 10-15-2017 09:58-0500 Respiratory Rate 18 /min Mirella Mccracken [facility] Internal Medicine Work Phone: Comment on above: Pattern: Unlabored 10-15-2017 09:58-0500 Weight 64.92 kg Mirella Mccracken [facility] Internal Medicine Work Phone: 09-18-2017 09:08-0500 BMI (Body Mass Index) 28.91 kg/m2 Mirella Mccracken [facility] Internal Medicine Work Phone: 09-18-2017 09:08-0500 Body weight 64.92 kg Mirella Mccracken [facility] Internal Medicine Work Phone: 09-18-2017 09:08-0500 BP Diastolic 82 mm[Hg] Mirella Mccracken [facility] Internal Medicine Work Phone: Comment on above: Patient Position: Sitting; Cuff Location : Left Arm; Cuff Size: Large 09-18-2017 09:08-0500 BP Systolic 128 mm[Hg] Mirella Mccracken [facility] Internal Medicine Work Phone: Comment on above: Patient Position: Sitting; Cuff Location : Left Arm; Cuff Size: Large 09-18-2017 09:08-0500 BSA (Body Surface Area) 1.6 m2 Mirella Mccracken [facility] Internal Medicine Work Phone: 09-18-2017 09:08-0500 Height 149.86 cm Mirella Mccracken [facility] Internal Medicine Work Phone: 09-18-2017 09:08-0500 Pulse (Heart Rate) 72 /min Mirella Mccracken [facility] Internal Medicine Work Phone: Comment on above: Pattern: Regular 09-18-2017 09:08-0500 Pulse Oximetry 98 % Mirella Mccracken [facility] Internal Medicine Work Phone: Comment on above: Room air 09-18-2017 09:08-0500 Respiratory Rate 18 /min Mirella Mccracken [facility] Internal Medicine Work Phone: Comment on above: Pattern: Unlabored 09-18-2017 09:08-0500 Weight 64.92 kg Mirella Mccracken [facility] Internal Medicine Work Phone: 06-05-2017 11:24-0400 [...] (Body Mass Index) 29.29 kg/m2 Mirella Mccracken [facility] Internal Medicine Work Phone: 05-07-2017 11:04-0400 Body weight 65.77 kg Mirella [facility] Internal Medicine Work Phone: 05-07-2017 11:04-0400 BP Diastolic 82 mm[Hg] Mirella [facility] Internal Medicine Work Phone: Comment on above: Patient Position: Sitting; Cuff Location : Left Arm; Cuff Size: Standard 05-07-2017 11:04-0400 BP Systolic 128 mm[Hg] Mirella [facility] Internal Medicine Work Phone: Comment on above: Patient Position: Sitting; Cuff Location : Left Arm; Cuff Size: Standard 05-07-2017 11:04-0400 BSA (Body Surface Area) 1.61 m2 Mirella [facility] Internal Medicine Work Phone: 05-07-2017 11:04-0400 Height 149.86 cm Mirella Mccracken [facility] Internal Medicine Work Phone: 05-07-2017 11:04-0400 Pulse (Heart Rate) 65 /min Mirella Mccracken [facility] Internal Medicine Work Phone: Comment on above: Pattern: Regular 05-07-2017 11:04-0400 Pulse Oximetry 98 % Mirella Mccracken [facility] Internal Medicine Work Phone: Comment on above: Room air 05-07-2017 11:04-0400 Respiratory Rate 18 /min Mirella Mccracken [facility] Internal Medicine Work Phone: Comment on above: Pattern: Unlabored 05-07-2017 11:04-0400 Weight 65.77 kg Mirella Mccracken [facility] Internal Medicine Work Phone: 03-26-2017 08:06-0400 BMI (Body Mass Index) 29.29 kg/m2 Mirella Mccracken [facility] Internal Medicine Work Phone: 03-26-2017 08:06-0400 Body Temperature 97.5 [degF] Mirella Mccracken [facility] Internal Medicine Work Phone: Comment on above: Method: Temporal 03-26-2017 08:06-0400 Body weight 65.77 kg Mirella Mccracken [facility] Internal Medicine Work Phone: 03-26-2017 08:06-0400 BP Diastolic 84 mm[Hg] Mirella Mccracken [facility] Internal Medicine Work Phone: Comment on above: Patient Position: Sitting; Cuff Location : Left Arm; Cuff Size: Large 03-26-2017 08:06-0400 BP Systolic 126 mm[Hg] Mirella Mccracken [facility] Internal Medicine Work Phone: Comment on above: Patient Position: Sitting; Cuff Location : Left Arm; Cuff Size: Large 03-26-2017 08:06-0400 BSA (Body Surface Area) 1.61 m2 Mirella Mccracken [facility] Internal Medicine Work Phone: 03-26-2017 08:06-0400 Height 149.86 cm Mirella Mccracken [facility] Internal Medicine Work Phone: 03-26-2017 08:06-0400 Pulse (Heart Rate) 82 /min Mirella Mccracken [facility] Internal Medicine Work Phone: Comment on above: Pattern: Regular 03-26-2017 08:06-0400 Pulse Oximetry 98 % Mirella Mccracken [facility] Internal Medicine Work Phone: Comment on above: Room air 03-26-2017 08:06-0400 Respiratory Rate 16 /min Mirella Mccracken [facility] Internal Medicine Work Phone: Comment on above: Pattern: Unlabored 03-26-2017 08:06-0400 Weight 65.77 kg Mirella Mccracken [facility] Internal Medicine Work Phone: 12-25-2016 10:08-0400 BMI (Body Mass Index) 29.51 kg/m2 Mirella Mccracken [facility] Internal Medicine Work Phone: 12-25-2016 10:08-0400 Body weight 66.28 kg Mirella Mccracken [facility] Internal Medicine Work Phone: 12-25-2016 10:08-0400 BP Diastolic 80 mm[Hg] Mirella Mccracken [facility] Internal Medicine Work Phone: Comment on above: Patient Position: Sitting; Cuff Location : Left Arm; Cuff Size: Large 12-25-2016 10:08-0400 BP Systolic 122 mm[Hg] Mirella Mccracken [facility] Internal Medicine Work Phone: Comment on above: Patient Position: Sitting; Cuff Location : Left Arm; Cuff Size: Large 12-25-2016 10:08-0400 BSA (Body Surface Area) 1.61 m2 Mirella Mccracken [facility] Internal Medicine Work Phone: 12-25-2016 10:08-0400 Height 149.86 cm Mirella Mccracken [facility] Internal Medicine Work Phone: 12-25-2016 10:08-0400 Pulse (Heart Rate) 69 /min Mirella Mccracken [facility] Internal Medicine Work Phone: Comment on above: Pattern: Regular 12-25-2016 10:08-0400 Pulse Oximetry 98 % Mirella Mccracken [facility] Internal Medicine Work Phone: Comment on above: Room air 12-25-2016 10:08-0400 Respiratory Rate 18 /min Mirella Mccracken [facility] Internal Medicine Work Phone: Comment on above: Pattern: Unlabored 12-25-2016 10:08-0400 Weight 66.28 kg Mirella Mccracken [facility] Internal Medicine Work Phone: 11-03-2016 14:09-0500 BSA (Body Surface Area) 1.59 m2 Hung Davison [facility] Work Phone: 09-25-2016 07:51-0500 BMI (Body Mass Index) 29.94 kg/m2 Mirella Mccracken [facility] Internal Medicine Work Phone: 09-25-2016 07:51-0500 Body Temperature 97.6 [degF] Mirella Mccracken [facility] Internal Medicine Work Phone: 09-25-2016 07:51-0500 Body weight 67.25 kg Mirella Mccracken [facility] Internal Medicine Work Phone: 09-25-2016 07:51-0500 BP Diastolic 78 mm[Hg] Mirella Mccracken [facility] Internal Medicine Work Phone: Comment on above: Patient Position: Sitting; Cuff Location : Left Arm; Cuff Size: Standard 09-25-2016 07:51-0500 BP Systolic 122 mm[Hg] Mirella Mccracken [facility] Internal Medicine Work Phone: Comment on above: Patient Position: Sitting; Cuff Location : Left Arm; Cuff Size: Standard 09-25-2016 07:51-0500 BSA (Body Surface Area) 1.62 m2 Mirella Mccracken [facility] Internal Medicine Work Phone: 09-25-2016 07:51-0500 Height 149.86 cm Mirella Mccracken [facility] Internal Medicine Work Phone: 09-25-2016 07:51-0500 Pulse (Heart Rate) 94 /min Mirella Mccracken [facility] Internal Medicine Work Phone: Comment on above: Pattern: Regular 09-25-2016 07:51-0500 Pulse Oximetry 96 % Mirella Mccracken [facility] Internal Medicine Work Phone: Comment on above: Room air 09-25-2016 07:51-0500 Respiratory Rate 17 /min Mirella Mccracken [facility] Internal Medicine Work Phone: Comment on above: Pattern: Unlabored 09-25-2016 07:51-0500 Weight 67.25 kg Mirella Mccracken [facility] Internal Medicine Work Phone: 06-25-2016 08:52-0400 BMI (Body Mass Index) 29.54 kg/m2 Mirella Mccracken [facility] Internal Medicine Work Phone: 06-25-2016 08:52-0400 Body weight 66.34 kg Mirella Mccracken [facility] Internal Medicine Work Phone: 06-25-2016 08:52-0400 BP Diastolic 60 mm[Hg] Mirella Mccracken [facility] Internal Medicine Work Phone: Comment on above: Patient Position: Sitting; Cuff Location : Left Arm; Cuff Size: Standard 06-25-2016 08:52-0400 BP Systolic 110 mm[Hg] Mirella Mccracken [facility] Internal Medicine Work Phone: Comment on above: Patient Position: Sitting; Cuff Location : Left Arm; Cuff Size: Standard 06-25-2016 08:52-0400 BSA (Body Surface Area) 1.61 m2 Mirella Mccracken [facility] Internal Medicine Work Phone: 06-25-2016 08:52-0400 Height 149.86 cm Mirella Mccracken [facility] Internal Medicine Work Phone: 06-25-2016 08:52-0400 Pulse (Heart Rate) 72 /min Mirella Mccracken [facility] Internal Medicine Work Phone: Comment on above: Pattern: Regular 06-25-2016 08:52-0400 Pulse Oximetry 100 % Mirella Mccracken [facility] Internal Medicine Work Phone: Comment on above: Room air 06-25-2016 08:52-0400 Respiratory Rate 18 /min Mirella Mccracken [facility] Internal Medicine Work Phone: Comment on above: Pattern: Unlabored 06-25-2016 08:52-0400 Weight 66.34 kg Mirella Mccracken [facility] Internal Medicine Work Phone: 05-21-2016 08:08-0400 BMI (Body Mass Index) 29.39 kg/m2 Mirella Mccracken [facility] Internal Medicine Work Phone: 05-21-2016 08:08-0400 Body Temperature 97.2 [degF] Mirella Mccracken [facility] Internal Medicine Work Phone: 05-21-2016 08:08-0400 Body weight 66 kg Mirella Mccracken [facility] Medicine Work Phone: 05-21-2016 08:08-0400 BP Diastolic 82 mm[Hg] Mirella Mccracken [facility] Internal Medicine Work Phone: Comment on above: Patient Position: Sitting; Cuff Location : Left Arm; Cuff Size: Standard 05-21-2016 08:08-0400 BP Systolic 124 mm[Hg] Mirella Mccracken [facility] Internal Medicine Work Phone: Comment on above: Patient Position: Sitting; Cuff Location : Left Arm; Cuff Size: Standard 05-21-2016 08:08-0400 BSA (Body Surface Area) 1.61 m2 Mirella Mccracken [facility] Internal Medicine Work Phone: 05-21-2016 08:08-0400 Height 149.86 cm Mirella Mccracken [facility] Internal Medicine Work Phone: 05-21-2016 08:08-0400 Pulse (Heart Rate) 80 /min Mirella Mccracken [facility] Internal Medicine Work Phone: Comment on above: Pattern: Regular 05-21-2016 08:08-0400 Pulse Oximetry 98 % Mirella Mccracken [facility] Internal Medicine Work Phone: Comment on above: Room air 05-21-2016 08:08-0400 Respiratory Rate 16 /min Mirella Mccracken [facility] Internal Medicine Work Phone: Comment on above: Pattern: Unlabored 05-21-2016 08:08-0400 Weight 66 kg Mirella M[facility]en [facility] Work Phone: 01-04-2016 09:52-0400 BMI (Body Mass Index) 29.59 kg/m2 Mirella [facility] Internal Medicine Work Phone: 01-04-2016 09:52-0400 Body weight 66.45 kg Mirella Mccracken [facility] Internal Medicine [...] 01-04-2016 09:52-0400 Height 149.86 cm Mirella Mccracken [facility] Internal Medicine Work Phone: 01-04-2016 09:52-0400 Pulse (Heart Rate) 64 /min Mirella Mccracken [facility] Internal Medicine Work Phone: Comment on above: Pattern: Regular 01-04-2016 09:52-0400 Pulse Oximetry 97 % Mirella Mccracken [facility] Internal Medicine Work Phone: Comment on above: Room air 01-04-2016 09:52-0400 Respiratory Rate 18 /min Mirella M[facility] Work Phone: Comment on above: Pattern: Unlabored 01-04-2016 09:52-0400 Weight 66.45 kg Mirella Mccracken [facility] Internal Medicine Work Phone: 12-06-2015 09:19-0400 BMI (Body Mass Index) 29.89 kg/m2 Mirella [facility] Internal Medicine Work Phone: 12-06-2015 09:19-0400 Body weight 67.13 kg Mirella Mccracken [facility] Internal Medicine Work Phone: 12-06-2015 09:19-0400 BP Diastolic 78 mm[Hg] Mirella Mccracken [facility] Internal Medicine Work Phone: Comment on above: Patient Position: Sitting; Cuff Location : Left Arm; Cuff Size: Large 12-06-2015 09:19-0400 BP Systolic 122 mm[Hg] Mirella Mccracken [facility] Internal Medicine Work Phone: Comment on above: Patient Position: Sitting; Cuff Location : Left Arm; Cuff Size: Large 12-06-2015 09:19-0400 BSA (Body Surface Area) 1.62 m2 Mirella Mccracken [facility] Internal Medicine Work Phone: 12-06-2015 09:19-0400 Height 149.86 cm Mirella Mccracken [facility] Internal Medicine Work Phone: 12-06-2015 09:19-0400 Pulse (Heart Rate) 73 /min Mirella Mccracken [facility] Internal Medicine Work Phone: Comment on above: Pattern: Regular 12-06-2015 09:19-0400 Pulse Oximetry 99 % Mirella Mccracken [facility] Internal Medicine Work Phone: Comment on above: Room air 12-06-2015 09:19-0400 Respiratory Rate 18 /min Mirella Mccracken [facility] Internal Medicine Work Phone: Comment on above: Pattern: Unlabored 12-06-2015 09:19-0400 Weight 67.13 kg Mirella Mccracken [facility] Internal Medicine Work Phone: 11-29-2015 09:09-0400 BMI (Body Mass Index) 29.72 kg/m2 Mirella Mccracken [facility] Internal Medicine Work Phone: 11-29-2015 09:09-0400 Body Temperature 98.2 [degF] Mirella Mccracken [facility] Internal Medicine Work Phone: Comment on above: Method: Oral 11-29-2015 09:09-0400 Body weight 66.74 kg Mirella Mccracken [facility] Internal Medicine Work Phone: 11-29-2015 09:09-0400 BP Diastolic 58 mm[Hg] Mirella Mccracken [facility] Internal Medicine Work Phone: Comment on above: Patient Position: Sitting; Cuff Location : Left Arm; Cuff Size: Large 11-29-2015 09:09-0400 BP Systolic 100 mm[Hg] Mirella Mccracken [facility] Internal Medicine Work Phone: Comment on above: Patient Position: Sitting; Cuff Location : Left Arm; Cuff Size: Large 11-29-2015 09:09-0400 BSA (Body Surface Area) 1.62 m2 Mirella Mccracken [facility] Internal Medicine Work Phone: 11-29-2015 09:09-0400 Height 149.86 cm Mirella Mccracken [facility] Internal Medicine Work Phone: 11-29-2015 09:09-0400 Pulse (Heart Rate) 71 /min Mirella Mccracken [facility] Internal Medicine Work Phone: Comment on above: Pattern: Regular 11-29-2015 09:09-0400 Pulse Oximetry 98 % Mirella Mccracken [facility] Internal Medicine Work Phone: Comment on above: Room air 11-29-2015 09:09-0400 Respiratory Rate 18 /min Mirella Mccracken [facility] Internal Medicine Work Phone: Comment on above: Pattern: Unlabored 11-29-2015 09:09-0400 Weight 66.74 kg Mirella Mccracken [facility] Internal Medicine Work Phone: 10-24-2015 10:01-0500 BMI (Body Mass Index) 30.78 kg/m2 Mirella Mccracken [facility] Internal Medicine Work Phone: Comment on above: Dr. Goldstein and [facility] 10-24-2015 10:01-0500 Body weight 69.12 kg Mirella Mccracken [facility] Internal Medicine Work Phone: Comment on above: Dr. Goldstein and had a glaucoma test done[facility] 10-24-2015 10:01-0500 BP Diastolic 82 mm[Hg] [facility] Internal Medicine Work Phone: Comment on above: Patient Position: Sitting; Cuff Location : Left Arm; Cuff Size: [facility]-24-2015 10:01-0500 BP Systolic 124 mm[Hg] [facility] Internal Medicine Work Phone: Comment on above: Patient Position: Sitting; Cuff Location : Left Arm; Cuff Size: [facility] 10-24-2015 10:01-0500 BSA (Body Surface Area) 1.64 m2 [facility] Internal Medicine Work Phone: Comment on above: [facility]-2015 10:01-0500 Height 149.86 cm [facility] Internal Medicine Work Phone: Comment on above: [facility]-24-2015 10:01-0500 Pulse (Heart Rate) 66 /min [facility] Internal Medicine Work Phone: Comment on above: Pattern: Regular [facility] 10-24-2015 10:01-0500 Pulse Oximetry 98 % [facility] Internal Medicine Work Phone: Comment on above: Room air [facility] 10-24-2015 10:01-0500 Respiratory Rate 18 /min [facility] Internal Medicine Work Phone: Comment on above: Pattern: Unlabored [facility] 10-24-2015 10:01-0500 Weight 69.12 kg [facility] Medicine Work Phone: Comment on above: [facility] 07-26-2015 10:22-0500 BMI (Body Mass Index) 32.32 kg/m2 [facility] Internal Medicine Work Phone: 07-26-2015 10:22-0500 Body weight 72.58 kg Mirella Mccracken [facility] Internal Medicine Work Phone: 07-26-2015 10:22-0500 BP Diastolic 80 mm[Hg] Mirella Mccracken [facility] Internal Medicine Work Phone: Comment on above: Patient Position: Sitting; Cuff Location : Left Arm; Cuff Size: Large 07-26-2015 10:22-0500 BP Systolic 138 mm[Hg] Mirella Mccracken [facility] Internal Medicine Work Phone: Comment on above: Patient Position: Sitting; Cuff Location : Left Arm; Cuff Size: Large 07-26-2015 10:22-0500 BSA (Body Surface Area) 1.68 m2 Mirella Mccracken [facility] Internal Medicine Work Phone: 07-26-2015 10:22-0500 Height 149.86 cm Mirella Mccracken [facility] Internal Medicine Work Phone: 07-26-2015 10:22-0500 Pulse (Heart Rate) 62 /min Mirella Mccracken [facility] Internal Medicine Work Phone: Comment on above: Pattern: Regular 07-26-2015 10:22-0500 Pulse Oximetry 98 % Mirella Mccracken [facility] Internal Medicine Work Phone: Comment on above: Room air 07-26-2015 10:22-0500 Respiratory Rate 18 /min Mirella Mccracken [facility] Internal Medicine Work Phone: Comment on above: Pattern: Unlabored 07-26-2015 10:22-0500 Weight 72.58 kg Mirella Mccracken [facility] Internal Medicine Work Phone: 07-06-2015 09:03-0400 Body weight 72.12 kg Mirella Mccracken [facility] Internal Medicine Work Phone: 07-06-2015 09:03-0400 BP Diastolic 78 mm[Hg] Mirella Mccracken [facility] Internal Medicine Work Phone: Comment on above: Patient Position: Sitting; Cuff Location : Left Arm; Cuff Size: Large 07-06-2015 09:03-0400 BP Systolic 122 mm[Hg] Mirella Mccracken [facility] Internal Medicine Work Phone: Comment on above: Patient Position: Sitting; Cuff Location : Left Arm; Cuff Size: Large 07-06-2015 09:03-0400 Pulse (Heart Rate) 68 /min Mirella Mccracken [facility] Internal Medicine Work Phone: Comment on above: Pattern: Regular 07-06-2015 09:03-0400 Pulse Oximetry 98 % Mirella Mccracken [facility] Internal Medicine Work Phone: Comment on above: Room air 07-06-2015 09:03-0400 Respiratory Rate 18 /min Mirella Mccracken [facility] Internal Medicine Work Phone: Comment on above: Pattern: Unlabored 07-06-2015 09:03-0400 Weight 72.12 kg Mirella Mccracken [facility] Internal Medicine Work Phone: 04-19-2015 10:10-0400 BMI (Body Mass Index) 31.02 kg/m2 Mirella Mccracken [facility] Internal Medicine Work Phone: 04-19-2015 10:10-0400 Body Temperature 97.5 [degF] Mirella Mccracken [facility] Internal Medicine Work Phone: Comment on above: Method: Temporal 04-19-2015 10:10-0400 Body weight 69.67 kg Mirella Mccracken [facility] Internal Medicine Work Phone: 04-19-2015 10:10-0400 BP Diastolic 82 mm[Hg] Mirella Mccracken [facility] Internal Medicine Work Phone: Comment on above: Patient Position: Sitting; Cuff Location : Left Arm; Cuff Size: Standard 04-19-2015 10:10-0400 BP Systolic 124 mm[Hg] Mirella Mccracken [facility] Internal Medicine Work Phone: Comment on above: Patient Position: Sitting; Cuff Location : Left Arm; Cuff Size: Standard 04-19-2015 10:10-0400 BSA (Body Surface Area) 1.65 m2 Mirella Mccracken [facility] Internal Medicine Work Phone: 04-19-2015 10:10-0400 Height 149.86 cm Mirella Mccracken [facility] Internal Medicine Work Phone: 04-19-2015 [id number] Pulse (Heart Rate) 62 /min Mirella Mccracken [facility] Internal Medicine Work Phone: Comment on above: Pattern: Regular 04-19-2015 10:100400 Pulse Oximetry 98 % Mirella Mccracken [facility] Internal Medicine Work Phone: Comment on above: Room air 04-19-2015 10:100400 Respiratory Rate 16 /min Mirella Mccracken [facility] Internal Medicine Work Phone: Comment on above: Pattern: Unlabored 04-19-2015 10:100400 Weight 69.67 kg Mirella Mccracken [facility] Internal Medicine Work Phone: 01-11-2015 10:29-0400 BMI (Body Mass Index) 31.2 kg/m2 Mirella Mccracken [facility] Internal Medicine Work Phone: 01-11-2015 10:29-0400 Body weight 70.08 kg Mirella Mccracken [facility] Internal Medicine Work Phone: 01-11-2015 10:29-0400 BP Diastolic 80 mm[Hg] Mirella Mccracken [facility] Internal Medicine Work Phone: Comment on above: Patient Position: Sitting; Cuff Location : Left Arm; Cuff Size: Standard 01-11-2015 10:29-0400 BP Systolic 128 mm[Hg] Mirella Mccracken [facility] Internal Medicine Work Phone: Comment on above: Patient Position: Sitting; Cuff Location : Left Arm; Cuff Size: Standard 01-11-2015 10:29-0400 BSA (Body Surface Area) 1.65 m2 Mirella Mccracken [facility] Internal Medicine Work Phone: 01-11-2015 10:29-0400 Height 149.86 cm Mirella Mccracken [facility] Internal Medicine Work Phone: 01-11-2015 10:29-0400 Pulse (Heart Rate) 56 /min Mirella Mccracken [facility] Internal Medicine [...] on above: Method: Oral [facility] 03/2014[facility] 10-12-2014 10:10-0500 Body weight 70.76 kg Mirella Mccracken [facility] Work Phone: Comment on above: [facility] 03/2014[facility] 10-12-2014 10:10-0500 BP Diastolic 82 mm[Hg] Mirella Mccracken [facility] Work Phone: Comment on above: Patient Position: Sitting; Cuff Location : Left Arm; Cuff Size: Large [facility] [place] [facility] 03/2014[facility] 10-12-2014 10:10-0500 BP Systolic 132 mm[Hg] Mirella Mccracken [facility] Work Phone: Comment on above: Patient Position: Sitting; Cuff Location : Left Arm; Cuff Size: Large [facility] [place] [facility] 03/2014[facility] 10-12-2014 10:10-0500 Pulse (Heart Rate) 61 /min Mirella Mccracken [facility] Work Phone: Comment on above: Pattern: Regular [facility] [place] [facility] 03/2014[facility] 10-12-2014 10:10-0500 Pulse Oximetry 96 % Mirella Mccracken [facility] Work Phone: Comment on above: Room air [facility] [place] [facility] 03/2014[facility] 10-12-2014 10:10-0500 Respiratory Rate 18 /min Mirella Mccracken [facility] Internal Medicine Work Phone: Comment on above: Pattern: Unlabored [facility] [place] [facility] 03/2014[facility] 10-12-2014 10:10-0500 Weight 70.76 kg Mirella Mccracken [facility] Work Phone: Comment on above: [facility] 03/2014[facility] 08-31-2014 11:25-0500 Body weight 68.66 kg Mirella Mccracken [facility] Work Phone: 08-31-2014 11:25-0500 BP Diastolic 82 mm[Hg] Mirella Mccracken [facility] Internal Medicine Work Phone: Comment on above: Patient Position: Sitting; Cuff Location : Left Arm; Cuff Size: Large 08-31-2014 11:25-0500 BP Systolic 138 mm[Hg] Mirella Mccracken [facility] Internal Medicine Work Phone: Comment on above: Patient Position: Sitting; Cuff Location : Left Arm; Cuff Size: Large 08-31-2014 11:25-0500 Pulse (Heart Rate) 56 /min Mirella Mccracken [facility] Internal Medicine Work Phone: Comment on above: Pattern: Regular 08-31-2014 11:25-0500 Respiratory Rate 18 /min Mirella Mccracken [facility] Internal Medicine Work Phone: Comment on above: Pattern: Unlabored 08-31-2014 11:25-0500 Weight 68.66 kg Mirella Mccracken [facility] Internal Medicine Work Phone: 08-14-2014 14:10-0500 Body Temperature 97.3 [degF] Mirella Mccracken [facility] Internal Medicine Work Phone: Comment on above: Method: Oral 08-14-2014 14:10-0500 Body weight 69.15 kg Mirella Mccracken [facility] Internal Medicine Work Phone: 08-14-2014 14:10-0500 BP Diastolic 72 mm[Hg] Mirella Mccracken [facility] Internal Medicine Work Phone: Comment on above: Patient Position: Sitting; Cuff Location : Left Arm; Cuff Size: Standard 08-14-2014 14:10-0500 BP Systolic 132 mm[Hg] Mirella Mccracken [facility] Internal Medicine Work Phone: Comment on above: Patient Position: Sitting; Cuff Location : Left Arm; Cuff Size: Standard 08-14-2014 14:10-0500 Pulse (Heart Rate) 53 /min Mirella Mccracken [facility] Internal Medicine Work Phone: Comment on above: Pattern: Regular 08-14-2014 14:10-0500 Pulse Oximetry 97 % Mirella Mccracken [facility] Internal Medicine Work Phone: Comment on above: Room air 08-14-2014 14:10-0500 Respiratory Rate 16 /min Mirella Mccracken [facility] Internal Medicine Work Phone: Comment on above: Pattern: Unlabored 08-14-2014 14:10-0500 Weight 69.15 kg Mirella Mccracken [facility] Internal Medicine Work Phone: 07-26-2014 10:15-0500 BMI (Body Mass Index) 30.55 kg/m2 Mirella Mccracken [facility] Internal Medicine Work Phone: 07-26-2014 10:15-0500 Body Temperature 97.4 [degF] Mirella Mccracken [facility] Internal Medicine Work Phone: Comment on above: Method: Oral 07-26-2014 10:15-0500 Body weight 68.61 kg Mirella Mccracken [facility] Internal Medicine Work Phone: 07-26-2014 10:15-0500 BP Diastolic 70 mm[Hg] Mirella Mccracken [facility] Internal Medicine Work Phone: Comment on above: Patient Position: Sitting; Cuff Location : Left Arm; Cuff Size: Standard 07-26-2014 10:15-0500 BP Systolic 110 mm[Hg] Mirella Mccracken [facility] Internal Medicine Work Phone: Comment on above: Patient Position: Sitting; Cuff Location : Left Arm; Cuff Size: Standard 07-26-2014 10:15-0500 BSA (Body Surface Area) 1.64 m2 Mirella Mccracken [facility] Internal Medicine Work Phone: 07-26-2014 10:15-0500 Height 149.86 cm Mirella Mccracken [facility] Internal Medicine Work Phone: 07-26-2014 10:15-0500 Pulse (Heart Rate) 66 /min Mirella Mccracken [facility] Internal Medicine Work Phone: Comment on above: Pattern: Regular 07-26-2014 10:15-0500 Pulse Oximetry 95 % Mirella Mccracken [facility] Internal Medicine Work Phone: Comment on above: Room air 07-26-2014 10:15-0500 Respiratory Rate 15 /min Mirella Mccracken [facility] Internal Medicine Work Phone: 07-26-2014 10:15-0500 Weight 68.61 kg Mirella Mccracken [facility] Internal Medicine Work Phone: 07-25-2014 14:56-0500 BMI (Body Mass Index) 30.55 kg/m2 Mirella [facility] Internal Medicine Work Phone: 07-25-2014 14:56-0500 Body weight 68.61 kg Mirella Mccracken [facility] Internal Medicine Work Phone: 07-25-2014 14:56-0500 BP Diastolic 80 mm[Hg] Mirella Mccracken [facility] Internal Medicine Work Phone: Comment on above: Patient Position: Sitting; Cuff Location : Left Arm; Cuff Size: Large 07-25-2014 14:56-0500 BP Systolic 140 mm[Hg] Mirella Mccracken [facility] Internal Medicine Work Phone: Comment on above: Patient Position: Sitting; Cuff Location : Left Arm; Cuff Size: Large 07-25-2014 14:56-0500 BSA (Body Surface Area) 1.64 m2 Mirella Mccracken [facility] Internal Medicine Work Phone: 07-25-2014 14:56-0500 Height 149.86 cm Mirella Mccracken [facility] Internal Medicine Work Phone: 07-25-2014 14:56-0500 Pulse (Heart Rate) 59 /min Mirella Mccracken [facility] Internal Medicine Work Phone: Comment on above: Pattern: Regular 07-25-2014 14:56-0500 Pulse Oximetry 98 % Mirella Mccracken [facility] Internal Medicine Work Phone: Comment on above: Room air 07-25-2014 14:56-0500 Respiratory Rate 18 /min Mirella Mccracken [facility] Internal Medicine Work Phone: Comment on above: Pattern: Unlabored 07-25-2014 14:56-0500 Weight 68.61 kg Mirella Mccracken [facility] Internal Medicine Work Phone: 07-13-2014 12:20-0400 BMI (Body Mass Index) 30.5 kg/m2 Mirella [facility] Internal Medicine Work Phone: 07-13-2014 12:20-0400 Body weight 68.49 kg Mirella Mccracken [facility] Internal Medicine Work Phone: 07-13-2014 12:20-0400 BP Diastolic 78 mm[Hg] Mirella Mccracken [facility] Internal Medicine Work Phone: Comment on above: Patient Position: Sitting; Cuff Location : Left Arm; Cuff Size: Large 07-13-2014 12:20-0400 BP Systolic 138 mm[Hg] Mirella Mccracken [facility] Internal Medicine Work Phone: Comment on above: Patient Position: Sitting; Cuff Location : Left Arm; Cuff Size: Large 07-13-2014 12:20-0400 BSA (Body Surface Area) 1.64 m2 Mirella Mccracken [facility] Internal Medicine Work Phone: 07-13-2014 12:20-0400 Height 149.86 cm Mirella Mccracken [facility] Internal Medicine Work Phone: 07-13-2014 12:20-0400 Pulse (Heart Rate) 58 /min Mirella Mccracken [facility] Internal Medicine Work Phone: Comment on above: Pattern: Regular 07-13-2014 12:20-0400 Pulse Oximetry 96 % Mirella Mccracken [facility] Internal Medicine Work Phone: Comment on above: Room air 07-13-2014 12:20-0400 Respiratory Rate 20 /min Mirella Mccracken [facility] Internal Medicine Work Phone: Comment on above: Pattern: Unlabored 07-13-2014 12:20-0400 Weight 68.49 kg Mirella Mccracken [facility] Internal Medicine Work Phone: 04-17-2014 11:27-0400 BMI (Body Mass Index) 30.59 kg/m2 Mirella [facility] Internal Medicine Work Phone: 04-17-2014 11:27-0400 Body weight 68.69 kg Mirella Mccracken [facility] Internal Medicine Work Phone: 04-17-2014 11:27-0400 BP Diastolic 70 mm[Hg] Mirella Mccracken [facility] Internal Medicine Work Phone: Comment on above: Patient Position: Sitting; Cuff Location : Left Arm; Cuff Size: Large 04-17-2014 11:27-0400 BP Systolic 124 mm[Hg] Mirella Mccracken [facility] Internal Medicine Work Phone: Comment on above: Patient Position: Sitting; Cuff Location : Left Arm; Cuff Size: Large 04-17-2014 11:27-0400 BSA (Body Surface Area) 1.64 m2 Mirella Mccracken [facility] Internal Medicine Work Phone: 04-17-2014 11:270400 Height 149.86 cm Mirella Mccracken [facility] Internal Medicine Work Phone: 04-17-2014 11:27-0400 Pulse (Heart Rate) 72 /min Mirella Mccracken [facility] Internal Medicine Work Phone: Comment on above: Pattern: Regular 04-17-2014 11:27-0400 Pulse Oximetry 97 % Mirella Mccracken [facility] Internal Medicine Work Phone: Comment on above: Room air 04-17-2014 11:27-0400 Respiratory Rate 18 /min Mirella Mccracken [facility] Internal Medicine Work Phone: Comment on above: Pattern: Unlabored 04-17-2014 11:27-0400 Weight 68.69 kg Mirella Mccracken [facility] Internal Medicine Work Phone: 04-06-2014 11:09-0400 BMI (Body Mass Index) 30.59 kg/m2 Mirella Mccracken [facility] Internal Medicine Work Phone: 04-06-2014 11:09-0400 Body weight 68.69 kg Mirella Mccracken [facility] Internal Medicine Work Phone: 04-06-2014 11:09-0400 BP Diastolic 80 mm[Hg] Mirella Mccracken [facility] Internal Medicine Work Phone: Comment on above: Patient Position: Sitting; Cuff Location : Left Arm; Cuff Size: Standard 04-06-2014 11:09-0400 BP Systolic 142 mm[Hg] Mirella Mccracken [facility] Internal Medicine Work Phone: Comment on above: Patient Position: Sitting; Cuff Location : Left Arm; Cuff Size: Standard 04-06-2014 11:040 BSA (Body Surface Area) 1.64 m2 Mirella Mccracken [facility] Internal Medicine Work Phone: 04-06-2014 11:0400 Height 149.86 cm Mirella Mccracken [facility] Internal Medicine Work Phone: 04-06-2014 11:09-0400 Pulse (Heart Rate) 73 /min Mirella Mccracken [facility] Internal Medicine Work Phone: Comment on above: Pattern: Regular 04-06-2014 11:040 Pulse Oximetry 97 % Mirella Mccracken [facility] Internal Medicine Work Phone: Comment on above: Room air 04-06-2014 11:0400 Respiratory Rate 18 /min Mirella Mccracken [facility] Internal Medicine Work Phone: Comment on above: Pattern: Unlabored 04-06-2014 11:040 Weight 68.69 kg Mirella Mccracken [facility] Internal Medicine Work Phone: 12-30-2013 10:27-0400 BMI (Body Mass Index) 32.03 kg/m2 Mirella Mccracken [facility] Internal Medicine Work Phone: 12-30-2013 10:27-0400 Body Temperature 98.2 [degF] Mirella Mccracken [facility] Internal Medicine Work Phone: Comment on above: Method: Oral 12-30-2013 10:27-0400 Body weight 71.92 kg Mirella Mccracken [facility] Internal Medicine Work Phone: 12-30-2013 10:27-0400 BP Diastolic 70 mm[Hg] Mirella Mccracken [facility] Internal Medicine Work Phone: Comment on above: Patient Position: Sitting; Cuff Location : Left Arm; Cuff Size: Large 12-30-2013 10:27-0400 BP Systolic 120 mm[Hg] Mirella Mccracken [facility] Internal Medicine Work Phone: Comment on above: Patient Position: Sitting; Cuff Location : Left Arm; Cuff Size: Large 12-30-2013 10:0 BSA (Body Surface Area) 1.67 m2 Mirella Mccracken [facility] Internal Medicine Work Phone: 12-30-2013 10:270400 Height 149.86 cm Mirella Mccracken [facility] Internal Medicine Work Phone: 12-30-2013 10:27-0400 Pulse (Heart Rate) 66 /min Mirella Mccracken [facility] Internal Medicine Work Phone: Comment on above: Pattern: Regular 12-30-2013 10:270400 Pulse Oximetry 97 % Mirella Mccracken [facility] Internal Medicine Work Phone: Comment on above: Room air 12-30-2013 10:270400 Respiratory Rate 20 /min Mirella Mccracken [facility] Internal Medicine Work Phone: Comment on above: Pattern: Unlabored 12-30-2013 10:0400 Weight 71.92 kg Mirella Mccracken [facility] Internal Medicine Work Phone: 12-22-2013 10:0400 BMI (Body Mass Index) 31.79 kg/m2 Mirella Mccracken [facility] Internal Medicine Work Phone: 12-22-2013 10:040 Body Temperature 98.2 [degF] Mirella Mccracken [facility] Internal Medicine Work Phone: Comment on above: Method: Oral 12-22-2013 10:040 Body weight 71.39 kg Mirella Mccracken [facility] Internal Medicine Work Phone: 12-22-2013 10:090400 BP Diastolic 60 mm[Hg] Mirella Mccracken [facility] Internal Medicine Work Phone: Comment on above: Patient Position: Sitting; Cuff Location : Left Arm; Cuff Size: Large 12-22-2013 10:0400 BP Systolic 104 mm[Hg] Mirella Mccracken [facility] Internal Medicine Work Phone: Comment on above: Patient Position: Sitting; Cuff Location : Left Arm; Cuff Size: Large 12-22-2013 10:090400 BSA (Body Surface Area) 1.67 m2 Mirella Mccracken [facility] Internal Medicine Work Phone: 12-22-2013 10:09-0400 Height 149.86 cm Mirella Mccracken [facility] Internal Medicine Work Phone: 12-22-2013 10:09-0400 Pulse (Heart Rate) 65 /min Mirella Mccracken [facility] Internal Medicine Work Phone: Comment on above: Pattern: Regular 12-22-2013 10:09-0400 Pulse Oximetry 98 % Mirella Mccracken [facility] Internal Medicine Work Phone: Comment on above: Room air 12-22-2013 10:090400 Respiratory Rate 20 /min Mirella Mccracken [facility] Internal Medicine Work Phone: Comment on above: Pattern: Unlabored 12-22-2013 10:09-0400 Weight 71.39 kg Mirella Mccracken [facility] Internal Medicine Work Phone: 12-01-2013 09:54-0400 BMI (Body Mass Index) 32.32 kg/m2 Mirella Mccracken [facility] Internal Medicine Work Phone: 12-01-2013 09:54-0400 Body Temperature 98.4 [degF] Mirella Mccracken [facility] Internal Medicine Work Phone: Comment on above: Method: Temporal 12-01-2013 09:54-0400 Body weight 72.58 kg Mirella Mccracken [facility] Internal Medicine Work Phone: 12-01-2013 09:54-0400 BP Diastolic 62 mm[Hg] Mirella Mccracken [facility] Internal Medicine Work Phone: Comment on above: Patient Position: Sitting; Cuff Location : Left Arm; Cuff Size: Standard 12-01-2013 09:54-0400 BP Systolic 124 mm[Hg] Mirella Mccracken [facility] Internal Medicine Work Phone: Comment on above: Patient Position: Sitting; Cuff Location : Left Arm; Cuff Size: Standard 12-01-2013 09:54-0400 BSA (Body Surface Area) 1.68 m2 Mirella Mccracken [facility] Internal Medicine Work Phone: 12-01-2013 09:54-0400 Height 149.86 cm Mirella Mccracken [facility] Internal Medicine Work Phone: 12-01-2013 09:54-0400 Pulse (Heart Rate) 69 /min Mirella Mccracken [facility] Internal Medicine Work Phone: Comment on above: Pattern: Regular 12-01-2013 09:54-0400 Pulse Oximetry 97 % Mirella Mccracken [facility] Internal Medicine Work Phone: Comment on above: Room air 12-01-2013 09:54-0400 Respiratory Rate 16 /min Mirella Mccracken [facility] Internal Medicine Work Phone: Comment on above: Pattern: Unlabored 12-01-2013 09:54-0400 Weight 72.58 kg Mirella Mccracken [facility] Internal Medicine Work Phone: 09-23-2013 11:57-0500 BMI (Body Mass Index) 33.01 kg/m2 Mirella Mccracken [facility] Internal Medicine Work Phone: 09-23-2013 11:57-0500 Body weight 74.14 kg Mirella Mccracken [facility] Internal Medicine Work Phone: 09-23-2013 11:57-0500 BP Diastolic 80 mm[Hg] Mirella Mccracken [facility] Internal Medicine Work Phone: Comment on above: Patient Position: Sitting; Cuff Location : Left Arm; Cuff Size: Large 09-23-2013 11:57-0500 BP Systolic 122 mm[Hg] Mirella Mccracken [facility] Internal Medicine Work Phone: Comment on above: Patient Position: Sitting; Cuff Location : Left Arm; Cuff Size: Large 09-23-2013 11:57-0500 BSA (Body Surface Area) 1.69 m2 Mirella Mccracken [facility] Internal Medicine Work Phone: 09-23-2013 11:57-0500 Height 149.86 cm Mirella Mccracken [facility] Internal Medicine Work Phone: 09-23-2013 11:57-0500 Pulse (Heart Rate) 66 /min Mirella Mccracken [facility] Internal Medicine Work Phone: Comment on above: Pattern: Regular 09-23-2013 11:57-0500 Pulse Oximetry 98 % Mirella Mccracken [facility] Internal Medicine Work Phone: Comment on above: Room air 09-23-2013 11:57-0500 Respiratory Rate 18 /min Mirella Mccracken [facility] Internal Medicine Work Phone: Comment on above: Pattern: Unlabored 09-23-2013 11:57-0500 Weight 74.14 kg Mirella Mccracken [facility] Internal Medicine Work Phone: 08-01-2013 10:54-0500 BMI (Body Mass Index) 33.58 kg/m2 Mirella Mccracken [facility] Internal Medicine Work Phone: 08-01-2013 10:54-0500 Body Temperature 98.3 [degF] Mirella Mccracken [facility] Internal Medicine Work Phone: Comment on above: Method: Oral 08-01-2013 10:54-0500 Body weight 75.41 kg Mirella Mccracken [facility] Internal Medicine Work Phone: 08-01-2013 10:54-0500 BP Diastolic 60 mm[Hg] Mirella Mccracken [facility] Internal Medicine Work Phone: Comment on above: Patient Position: Sitting; Cuff Location : Left Arm; Cuff Size: Large 08-01-2013 10:54-0500 BP Systolic 102 mm[Hg] Mirella Mccracken [facility] Internal Medicine Work Phone: Comment on above: Patient Position: Sitting; Cuff Location : Left Arm; Cuff Size: Large 08-01-2013 10:54-0500 BSA (Body Surface Area) 1.7 m2 Mirella Mccracken [facility] Internal Medicine Work Phone: 08-01-2013 10:54-0500 Height 149.86 cm Mirella Mccracken [facility] Internal Medicine Work Phone: 08-01-2013 10:54-0500 Pulse (Heart Rate) 68 /min Mirella Mccracken [facility] Internal Medicine Work Phone: Comment on above: Pattern: Regular 08-01-2013 10:54-0500 Pulse Oximetry 97 % Mirella Mccracken [facility] Internal Medicine Work Phone: Comment on above: Room air 08-01-2013 10:54-0500 Respiratory Rate 20 /min Mirella Mccracken [facility] Internal Medicine Work Phone: Comment on above: Pattern: Unlabored 08-01-2013 10:54-0500 [facility] 75.41 [facility]: 07-04-2013 09:33-0400 BMI (Body Mass Index) 33.73 kg/m2 Mirella Mccracken [facility] Internal Medicine Work Phone: Comment on above: hearing yazminlvольга Jones 07-04-2013 09:33-0400 Body Temperature 98.2 [degF] Mirella [facility] Internal Medicine Work Phone: Comment on above: Method: Oral hearing denae Jones 07-04-2013 09:33-0400 Body weight 75.75 kg Mirella [facility] Internal Medicine Work Phone: Comment on above: hearing denae Jones 07-04-2013 09:33-0400 BP Diastolic 62 mm[Hg] [facility] Internal Medicine Work Phone: Comment on above: Patient Position: Sitting; Cuff Location : Left Arm; Cuff Size: Large adarsh Jones 07-04-2013 09:33-0400 BP Systolic 120 mm[Hg] [facility] Internal Medicine Work Phone: Comment on above: Patient Position: Sitting; Cuff Location : Left Arm; Cuff Size: Large adarsh Jones 07-04-2013 09:33-0400 BSA (Body Surface Area) 1.71 m2 [facility] Internal Medicine Work Phone: Comment on above: hearing denae Jones 07-04-2013 09:33-0400 Height 149.86 cm [facility] Internal Medicine Work Phone: Comment on above: hearing yazminlvольга Jones 07-04-2013 09:33-0400 Pulse (Heart Rate) 52 /min Mirella Mccracken [facility] Internal Medicine Work Phone: Comment on above: Pattern: Regular hearing [facility]vision Dr Samaria Jones 07-04-2013 09:33-0400 Pulse Oximetry 97 % Mirella Mccracken [facility] Internal Medicine Work Phone: Comment on above: Room air hearing [facility] Dr Samaria Jones 07-04-2013 09:33-0400 Respiratory Rate 20 /min Mirella Mccracken [facility] Internal Medicine Work Phone: Comment on above: Pattern: Unlabored hearing [facility] Dr Samaria Jones 07-04-2013 09:33-0400 Weight 75.75 kg Mirella Mccracken [facility] Internal Medicine Work Phone: Comment on above: hearing wnlvision Dr. Jones 06-27-2013 14:49-0400 BMI (Body Mass Index) 33.73 kg/m2 Mirella Mccracken [facility] Internal Medicine Work Phone: 06-27-2013 14:49-0400 Body weight 75.75 kg Mirella Mccracken [facility] Internal Medicine Work Phone: 06-27-2013 14:49-0400 BP Diastolic 62 mm[Hg] Mirella Mccracken [facility] Internal Medicine Work Phone: Comment on above: Patient Position: Sitting; Cuff Location : Left Arm; Cuff Size: Large 06-27-2013 14:49-0400 BP Systolic 128 mm[Hg] Mirella Mccracken [facility] Internal Medicine Work Phone: Comment on above: Patient Position: Sitting; Cuff Location : Left Arm; Cuff Size: Large 06-27-2013 14:49-0400 BSA (Body Surface Area) 1.71 m2 Mirella Mccracken [facility] Internal Medicine Work Phone: 06-27-2013 14:49-0400 Height 149.86 cm Mirella Mccracken [facility] Internal Medicine Work Phone: 06-27-2013 14:49-0400 Pulse (Heart Rate) 61 /min Mirella Mccracken [facility] Internal Medicine Work Phone: Comment on above: Pattern: Regular 06-27-2013 14:49-0400 Pulse Oximetry 98 % Mirella Mccracken [facility] Internal Medicine Work Phone: Comment on above: Room air 06-27-2013 14:49-0400 Respiratory Rate 20 /min Mirella Mccracken [facility] Internal Medicine Work Phone: Comment on above: Pattern: Unlabored 06-27-2013 14:49-0400 Weight 75.75 kg Mirella Mccrcaken [facility] Internal Medicine Work Phone: 06-20-2013 12:56-0400 BMI (Body Mass Index) 33.53 kg/m2 Mirella Mccracken [facility] Internal Medicine Work Phone: 06-20-2013 12:56-0400 Body Temperature 97.6 [degF] Mirella Mccracken [facility] Internal Medicine Work Phone: Comment on above: Method: Oral 06-20-2013 12:56-0400 Body weight 75.3 kg Mirella Mccracken [facility] Internal Medicine Work Phone: 06-20-2013 12:56-0400 BP Diastolic 68 mm[Hg] Mirella Mccracken [facility] Internal Medicine Work Phone: Comment on above: Patient Position: Sitting; Cuff Location : Left Arm; Cuff Size: Standard 06-20-2013 12:56-0400 BP Systolic 118 mm[Hg] Mirella Mccracken [facility] Internal Medicine Work Phone: Comment on above: Patient Position: Sitting; Cuff Location : Left Arm; Cuff Size: Standard 06-20-2013 12:56-0400 BSA (Body Surface Area) 1.7 m2 Mirella Mccracken [facility] Internal Medicine Work Phone: 06-20-2013 12:56-0400 Height 149.86 cm Mirella Mccracken [facility] Internal Medicine Work Phone: 06-20-2013 12:56-0400 Pulse (Heart Rate) 68 /min Mirella Mccracken [facility] Internal Medicine Work Phone: Comment on above: Pattern: Regular 06-20-2013 12:56-0400 Respiratory Rate 20 /min Mirella Mccracken [facility] Internal Medicine Work Phone: Comment on above: Pattern: Unlabored 06-20-2013 12:56-0400 Weight 75.3 kg Mirella Mccracken [facility] Internal Medicine Work Phone: 05-20-2013 08:13-0400 BMI (Body Mass Index) 33.63 kg/m2 Mirella Mccracken [facility] Internal Medicine Work Phone: 05-20-2013 08:13-0400 Body weight 75.52 kg Mirella Mccracken [facility] Internal Medicine Work Phone: 05-20-2013 08:13-0400 BP Diastolic 62 mm[Hg] Mirella Mccracken [facility] Internal Medicine Work Phone: Comment on above: Patient Position: Sitting; Cuff Location : Left Arm; Cuff Size: Standard 05-20-2013 08:13-0400 BP Systolic 128 mm[Hg] Mirella Mccracken [facility] Internal Medicine Work Phone: Comment on above: Patient Position: Sitting; Cuff Location : Left Arm; Cuff Size: Standard 05-20-2013 08:13-0400 BSA (Body Surface Area) 1.71 m2 Mirella Mccracken [facility] Internal Medicine Work Phone: 05-20-2013 08:13-0400 Height 149.86 cm Mirella Mccracken [facility] Internal Medicine Work Phone: 05-20-2013 08:13-0400 Pulse (Heart Rate) 60 /min Mirella Mccracken [facility] Internal Medicine Work Phone: Comment on above: Pattern: Regular 05-20-2013 08:13-0400 Respiratory Rate 20 /min Mirella Mccracken [facility] Internal Medicine Work Phone: Comment on above: Pattern: Unlabored 05-20-2013 08:13-0400 Weight 75.52 kg Mirella Mccracken [facility] Internal Medicine Work Phone: 04-22-2013 15:16-0400 BMI (Body Mass Index) 33.63 kg/m2 Mirella [facility] Internal Medicine Work Phone: 04-22-2013 15:16-0400 Body Temperature 96 [degF] Mirella Mccracken [facility] Internal Medicine Work Phone: Comment on above: Method: Oral 04-22-2013 15:16-0400 Body weight 75.52 kg Mirella Mccracken [facility] Internal Medicine Work Phone: 04-22-2013 15:16-0400 BP Diastolic 74 mm[Hg] Mirella Mccracken [facility] Internal Medicine Work Phone: Comment on above: Patient Position: Sitting; Cuff Location : Left Arm; Cuff Size: Large 04-22-2013 15:16-0400 BP Systolic 126 mm[Hg] Mirella Mccracken [facility] Internal Medicine Work Phone: Comment on above: Patient Position: Sitting; Cuff Location : Left Arm; Cuff Size: Large 04-22-2013 15:16-0400 BSA (Body Surface Area) 1.71 m2 Mirella Mccracken [facility] Internal Medicine Work Phone: 04-22-2013 15:16-0400 Height 149.86 cm Mirella Mccracken [facility] Internal Medicine Work Phone: 04-22-2013 15:16-0400 Pulse (Heart Rate) 64 /min Mirella Mccracken [facility] Internal Medicine Work Phone: Comment on above: Pattern: Regular 04-22-2013 15:16-0400 Respiratory Rate 18 /min Mirella Mccracken [facility] Internal Medicine Work Phone: Comment on above: Pattern: Unlabored 04-22-2013 15:16-0400 Weight 75.52 kg Mirella Mccracken [facility] Internal Medicine Work Phone: 04-15-2013 15:12-0400 BMI (Body Mass Index) 34.65 kg/m2 Mirella Mccracken [facility] Internal Medicine Work Phone: 04-15-2013 15:12-0400 Body Temperature 98 [degF] Mirella Mccracken [facility] Internal Medicine Work Phone: Comment on above: Method: Oral 04-15-2013 15:12-0400 Body weight 77.82 kg Mirella Mccracken [facility] Internal Medicine Work Phone: 04-15-2013 15:12-0400 BP Diastolic 70 mm[Hg] Mirella Mccracken [facility] Internal Medicine Work Phone: Comment on above: Patient Position: Sitting; Cuff Location : Left Arm; Cuff Size: Standard 04-15-2013 15:12-0400 BP Systolic 120 mm[Hg] Mirella Mccracken [facility] Internal Medicine Work Phone: Comment on above: Patient Position: Sitting; Cuff Location : Left Arm; Cuff Size: Standard 04-15-2013 15:12-0400 BSA (Body Surface Area) 1.73 m2 Mirella Mccracken [facility] Internal Medicine Work Phone: 04-15-2013 15:12-0400 Height 149.86 cm Mirella Mccracken [facility] Internal Medicine Work Phone: 04-15-2013 15:12-0400 Pulse (Heart Rate) 64 /min Mirella Mccracken [facility] Internal Medicine Work Phone: Comment on above: Pattern: Regular 04-15-2013 15:12-0400 Pulse Oximetry 98 % Mirella Mccracken [facility] Internal Medicine Work Phone: Comment on above: Room air 04-15-2013 15:12-0400 Weight 77.82 kg Mirella Mccracken [facility] Internal Medicine Work Phone: 03-31-2013 11:15-0400 BMI (Body Mass Index) 32.96 kg/m2 Mirella Mccracken [facility] Internal Medicine Work Phone: 03-31-2013 11:15-0400 Body Temperature 97.5 [degF] Mirella Mccracken [facility] Internal Medicine Work Phone: Comment on above: Method: Oral 03-31-2013 11:15-0400 Body weight 74.02 kg Mirella Mccracken [facility] Internal Medicine Work Phone: 03-31-2013 11:15-0400 BP Diastolic 60 mm[Hg] Mirella Mccracken [facility] Internal Medicine Work Phone: Comment on above: Patient Position: Sitting; Cuff Location : Left Arm; Cuff Size: Large 03-31-2013 11:15-0400 BP Systolic 118 mm[Hg] Mirella Mccracken [facility] Internal Medicine Work Phone: Comment on above: Patient Position: Sitting; Cuff Location : Left Arm; Cuff Size: Large 03-31-2013 11:15-0400 BSA (Body Surface Area) 1.69 m2 Mirella Mccracken [facility] Internal Medicine Work Phone: 03-31-2013 11:15-0400 Height 149.86 cm Mirella Mccracken [facility] Internal Medicine Work Phone: 03-31-2013 11:15-0400 Pulse (Heart Rate) 60 /min Mirella Mccracken [facility] Internal Medicine Work Phone: Comment on above: Pattern: Regular 03-31-2013 11:15-0400 Respiratory Rate 20 /min Mirella Mccracken [facility] Internal Medicine Work Phone: Comment on above: Pattern: Unlabored 03-31-2013 11:15-0400 Weight 74.02 kg Mirella Mccracken [facility] Internal Medicine Work Phone: 02-28-2013 09:53-0400 BMI (Body Mass Index) 32.57 kg/m2 Mirella Mccracken [facility] Internal Medicine Work Phone: 02-28-2013 09:53-0400 Body Temperature 98.3 [degF] Mirella Mccracken [facility] Internal Medicine Work Phone: Comment on above: Method: Oral 02-28-2013 09:53-0400 Body weight 73.14 kg Mirella Mccracken [facility] Internal Medicine Work Phone: 02-28-2013 09:53-0400 BP Diastolic 62 mm[Hg] Mirella Mccracken [facility] Internal Medicine Work Phone: Comment on above: Patient Position: Sitting; Cuff Location : Left Arm; Cuff Size: Large 02-28-2013 09:53-0400 BP Systolic 120 mm[Hg] Mirella Mccracken [facility] Internal Medicine Work Phone: Comment on above: Patient Position: Sitting; Cuff Location : Left Arm; Cuff Size: Large 02-28-2013 09:53-0400 BSA (Body Surface Area) 1.68 m2 Mirella Mccracken [facility] Internal Medicine Work Phone: 02-28-2013 09:53-0400 Height 149.86 cm Mirella Mccracken [facility] Internal Medicine Work Phone: 02-28-2013 09:53-0400 Pulse (Heart Rate) 60 /min Mirella Mccracken [facility] Internal Medicine Work Phone: Comment on above: Pattern: Regular 02-28-2013 09:53-0400 Respiratory Rate 18 /min Mirella Mccracken [facility] Internal Medicine Work Phone: Comment on above: Pattern: Unlabored 02-28-2013 09:53-0400 Weight 73.14 kg Mirella Mccracken [facility] Internal Medicine Work Phone: 11-15-2012 14:01-0500 BMI (Body Mass Index) 32.57 kg/m2 Mirella Mccracken [facility] Internal Medicine Work Phone: 11-15-2012 14:01-0500 Body Temperature 97.9 [degF] Mirella Mccracken [facility] Internal Medicine Work Phone: Comment on above: Method: Oral 11-15-2012 14:01-0500 Body weight 73.14 kg Mirella Mccracken [facility] Internal Medicine Work Phone: 11-15-2012 14:01-0500 BP Diastolic 78 mm[Hg] [facility]: Comment on above: Patient Position: Sitting; Cuff Location : Left Arm; Cuff Size: Large 11-15-2012 14:01-0500 BP Systolic 122 mm[Hg] Mirella Mccracken [facility] Internal Medicine Work Phone: Comment on above: Patient Position: Sitting; Cuff Location : Left Arm; Cuff Size: Large 11-15-2012 14:01-0500 BSA (Body Surface Area) 1.68 m2 Mirella Mccracken [facility] Internal Medicine Work Phone: 11-15-2012 14:01-0500 Height 149.86 [facility] Work [facility]: 11-15-2012 14:01-0500 Pulse (Heart Rate) 72 /min Mirella Mccracken [facility] Internal Medicine Work Phone: Comment on above: Pattern: Regular 11-15-2012 14:01-0500 Respiratory Rate 20 /min Mirella Mccracken [facility] Internal Medicine Work Phone: Comment on above: Pattern: Unlabored 11-15-2012 14:01-0500 Weight 73.14 kg Mirella Mccracken [facility] Internal Medicine Work Phone: 10-25-2012 11:26-0500 BMI (Body Mass Index) 32.74 kg/m2 Mirella Mccracken [facility] Internal Medicine Work Phone: 10-25-2012 11:26-0500 Body Temperature 98.3 [degF] Mirella Mccracken [facility] Internal Medicine Work Phone: Comment on above: Method: Oral 10-25-2012 11:26-0500 Body weight 73.54 kg Mirella Mccracken [facility] Internal Medicine Work Phone: 10-25-2012 11:26-0500 BP Diastolic 62 mm[Hg] Mirella Mccracken [facility] Internal Medicine Work Phone: Comment on above: Patient Position: Sitting; Cuff Location : Right Arm; Cuff Size: Large 10-25-2012 11:26-0500 BP Systolic 144 mm[Hg] Mirella Mccracken [facility] Internal Medicine Work Phone: Comment on above: Patient Position: Sitting; Cuff Location : Right Arm; Cuff Size: Large 10-25-2012 11:26-0500 BSA (Body Surface Area) 1.69 m2 Mirella Mccracken [facility] Internal Medicine Work Phone: 10-25-2012 11:26-0500 Height 149.86 cm Mirella Mccracken [facility] Internal Medicine Work Phone: 10-25-2012 11:26-0500 Pulse (Heart Rate) 72 /min Mirella Mccracken [facility] Internal Medicine Work Phone: Comment on above: Pattern: Regular 10-25-2012 11:26-0500 Respiratory Rate 20 /min Mirella Mccracken [facility] Internal Medicine Work Phone: Comment on above: Pattern: Unlabored 10-25-2012 11:26-0500 Weight 73.54 kg Mirella Mccracken [facility] Internal Medicine Work Phone: 10-21-2012 09:46-0500 BMI (Body Mass Index) 32.74 kg/m2 Mirella Mccracken [facility] Internal Medicine Work Phone: 10-21-2012 09:46-0500 Body Temperature 97.6 [degF] Mirella Mccracken [facility] Internal Medicine Work Phone: Comment on above: Method: Oral 10-21-2012 09:46-0500 Body weight 73.54 kg Mirella Mccracken [facility] Internal Medicine Work Phone: 10-21-2012 09:46-0500 BP Diastolic 62 mm[Hg] Mirella Mccracken [facility] Internal Medicine Work Phone: Comment on above: Patient Position: Sitting; Cuff Location : Left Arm; Cuff Size: Large 10-21-2012 09:46-0500 BP Systolic 120 mm[Hg] Mirella Mccracken [facility] Internal Medicine Work Phone: Comment on above: Patient Position: Sitting; Cuff Location : Left Arm; Cuff Size: Large 10-21-2012 09:46-0500 BSA (Body Surface Area) 1.69 m2 Mirella Mccracken [facility] Internal Medicine Work Phone: 10-21-2012 09:46-0500 Height 149.86 cm Mirella Mccracken [facility] Internal Medicine Work Phone: 10-21-2012 09:46-0500 Pulse (Heart Rate) 64 /min Mirella Mccracken [facility] Internal Medicine Work Phone: Comment on above: Pattern: Regular 10-21-2012 09:46-0500 Respiratory Rate 20 /min Mirella Mccracken [facility] Internal Medicine Work Phone: Comment on above: Pattern: Unlabored 10-21-2012 09:46-0500 Weight 73.54 kg Mirella Mccracken [facility] Internal Medicine Work Phone: 09-30-2012 09:48-0500 BMI (Body Mass Index) 32.74 kg/m2 Mirella Mccracken [facility] Internal Medicine Work Phone: 09-30-2012 09:48-0500 Body Temperature 98.2 [degF] Mirella Mccracken [facility] Internal Medicine Work Phone: Comment on above: Method: Oral 09-30-2012 09:48-0500 Body weight 73.54 kg Mirella Mccracekn [facility] Internal Medicine Work Phone: 09-30-2012 09:48-0500 BP Diastolic 76 mm[Hg] Mirella Mccracken [facility] Internal Medicine Work Phone: Comment on above: Patient Position: Sitting; Cuff Location : Left Arm; Cuff Size: Standard 09-30-2012 09:48-0500 BP Systolic 122 mm[Hg] Mirella Mccracken [facility] Internal Medicine Work Phone: Comment on above: Patient Position: Sitting; Cuff Location : Left Arm; Cuff Size: Standard 09-30-2012 09:48-0500 BSA (Body Surface Area) 1.69 m2 Mirella Mccracken [facility] Internal Medicine Work Phone: 09-30-2012 09:48-0500 Height 149.86 cm Mirella Mccracken [facility] Internal Medicine Work Phone: 09-30-2012 09:48-0500 Pulse (Heart Rate) 58 /min Mirella Mccracken [facility] Internal Medicine Work Phone: Comment on above: Pattern: Regular 09-30-2012 09:48-0500 Pulse Oximetry 98 % Mirella Mccracken [facility] Internal Medicine Work Phone: Comment on above: Room air 09-30-2012 09:48-0500 Respiratory Rate 16 /min Mirella Mccracken [facility] Internal Medicine Work Phone: Comment on above: Pattern: Unlabored 09-30-2012 09:48-0500 Weight 73.54 kg Mirella Mccracken [facility] Internal Medicine Work Phone: 09-16-2012 09:47-0500 BMI (Body Mass Index) 32.74 kg/m2 [facility] Work Phone: 09-16-2012 09:47-0500 Body Temperature 97 [degF] Mirella Mccracken [facility] Internal Medicine Work Phone: Comment on above: Method: Oral 09-16-2012 09:47-0500 Body weight 73.54 kg Mirella Mccracken [facility] Internal Medicine Work Phone: 09-16-2012 09:47-0500 BP Diastolic 76 mm[Hg] Mirella Mccracken [facility] Internal Medicine Work Phone: Comment on above: Patient Position: Sitting; Cuff Location : Left Arm; Cuff Size: Large 09-16-2012 09:47-0500 BP Systolic 128 mm[Hg] Mirella Mccracken [facility] Internal Medicine Work Phone: Comment on above: Patient Position: Sitting; Cuff Location : Left Arm; Cuff Size: Large 09-16-2012 09:47-0500 BSA (Body Surface Area) 1.69 m2 Mirella Mccracken [facility] Internal Medicine Work Phone: 09-16-2012 09:47-0500 Height 149.86 cm Mirella Mccracken [facility] Internal Medicine Work Phone: 09-16-2012 09:47-0500 Pulse (Heart Rate) 72 /min Mirella Mccracken [facility] Internal Medicine Work Phone: Comment on above: Pattern: Regular 09-16-2012 09:47-0500 Respiratory Rate 18 /min Mirella Mccracken [facility] Internal Medicine Work Phone: Comment on above: Pattern: Unlabored 09-16-2012 09:47-0500 Weight 73.54 kg Mirella Mccracken [facility] Internal Medicine Work Phone: 05-27-2012 09:32-0400 Body Temperature 96.9 [degF] [facility] Work Phone: 03-11-2012 13:42-0400 BMI (Body Mass Index) 28.88 kg/m2 [facility] Work Phone: 03-11-2012 13:42-0400 Body Temperature 97.8 [degF] Mirella Mccracken [facility] Internal Medicine Work Phone: 03-11-2012 13:42-0400 Body weight 64.86 kg Mirella Mccracken [facility] Internal Medicine Work Phone: 03-11-2012 13:42-0400 BP Diastolic 70 mm[Hg] Mirella Mccracken [facility] Internal Medicine Work Phone: Comment on above: Patient Position: Sitting; Cuff Location : Left Arm; Cuff Size: Large 03-11-2012 13:42-0400 BP Systolic 124 mm[Hg] Mirella Mccracken [facility] Internal Medicine Work Phone: Comment on above: Patient Position: Sitting; Cuff Location : Left Arm; Cuff Size: Large 03-11-2012 13:42-0400 BSA (Body Surface Area) 1.6 m2 Mirella Mccracken [facility] Internal Medicine Work Phone: 03-11-2012 13:42-0400 Height 149.86 cm Mirella Mccracken [facility] Internal Medicine Work Phone: 03-11-2012 13:42-0400 Pulse (Heart Rate) 56 /min Mirella Mccracken [facility] Internal Medicine Work Phone: Comment on above: Pattern: Regular 03-11-2012 13:42-0400 Respiratory Rate 18 /min Mirella Mccracken [facility] Internal Medicine Work Phone: Comment on above: Pattern: Unlabored 03-11-2012 13:42-0400 Weight 64.86 kg Mirella Mccracken [facility] Internal Medicine Work Phone: 03-04-2012 12:12-0400 BMI (Body Mass Index) 28.96 kg/m2 Mirella Mccracken [facility] Internal Medicine Work Phone: 03-04-2012 12:12-0400 Body weight 65.03 kg Mirella Mccracken [facility] Internal Medicine Work Phone: 03-04-2012 12:12-0400 BP Diastolic 62 mm[Hg] Mirella Mccracken [facility] Internal Medicine Work Phone: Comment on above: Patient Position: Sitting; Cuff Location : Left Arm; Cuff Size: Large 03-04-2012 12:12-0400 BP Systolic 122 mm[Hg] Mirella Mccracken [facility] Internal Medicine Work Phone: Comment on above: Patient Position: Sitting; Cuff Location : Left Arm; Cuff Size: Large 03-04-2012 12:12-0400 BSA (Body Surface Area) 1.6 m2 Mirella Mccracken [facility] Internal Medicine Work Phone: 03-04-2012 12:12-0400 Height 149.86 cm Mirella Mccracken [facility] Internal Medicine Work Phone: 03-04-2012 12:12-0400 Pulse (Heart Rate) 60 /min Mirella Mccracken [facility] Internal Medicine Work Phone: Comment on above: Pattern: Regular 03-04-2012 12:12-0400 Respiratory Rate 20 /min Mirella Mccracken [facility] Internal Medicine Work Phone: Comment on above: Pattern: Unlabored 03-04-2012 12:12-0400 Weight 65.03 kg Mirella Mccracken [facility] Internal Medicine Work Phone: 02-25-2012 13:29-0400 BMI (Body Mass Index) 28.96 kg/m2 Mirella Mccracken [facility] Internal Medicine Work Phone: 02-25-2012 13:29-0400 Body weight 65.03 kg Mirella Mccracken [facility] Internal Medicine Work Phone: 02-25-2012 13:29-0400 BP Diastolic 76 mm[Hg] Mirella Mccracken [facility] Internal Medicine Work Phone: Comment on above: Patient Position: Sitting; Cuff Location : Left Arm; Cuff Size: Standard 02-25-2012 13:29-0400 BP Systolic 120 mm[Hg] Mirella Mccracken [facility] Internal Medicine Work Phone: Comment on above: Patient Position: Sitting; Cuff Location : Left Arm; Cuff Size: Standard 02-25-2012 13:29-0400 BSA (Body Surface Area) 1.6 m2 Mirella Mccracken [facility] Internal Medicine Work Phone: 02-25-2012 13:29-0400 Height 149.86 cm Mirella Mccracken [facility] Internal Medicine Work Phone: 02-25-2012 13:29-0400 Pulse (Heart Rate) 68 /min Mirella Mccracken [facility] Internal Medicine Work Phone: Comment on above: Pattern: Regular 02-25-2012 13:29-0400 Respiratory Rate 20 /min Mirella Mccracken [facility] Internal Medicine Work Phone: Comment on above: Pattern: Unlabored 02-25-2012 13:29-0400 Weight 65.03 kg Mirella Mccracken [facility] Internal Medicine Work Phone: 01-30-2012 08:19-0400 BMI (Body Mass Index) 28.96 kg/m2 Mirella Mccracken [facility] Internal Medicine Work Phone: 01-30-2012 08:19-0400 Body weight 65.03 kg Mirella Mccracken [facility] Internal Medicine Work Phone: 01-30-2012 08:19-0400 BP Diastolic 70 mm[Hg] Mirella Mccracken [facility] Internal Medicine Work Phone: Comment on above: Patient Position: Sitting; Cuff Location : Left Arm; Cuff Size: Large 01-30-2012 08:19-0400 BP Systolic 120 mm[Hg] Mirella Mccracken [facility] Internal Medicine Work Phone: Comment on above: Patient Position: Sitting; Cuff Location : Left Arm; Cuff Size: Large 01-30-2012 08:19-0400 BSA (Body Surface Area) 1.6 m2 Mirella Mccracken [facility] Internal Medicine Work Phone: 01-30-2012 08:190400 Height 149.86 cm Mirella Mccracken [facility] Internal Medicine Work Phone: 01-30-2012 08:19-0400 Pulse (Heart Rate) 60 /min Mirella Mccracken [facility] Internal Medicine Work Phone: Comment on above: Pattern: Regular 01-30-2012 08:19-0400 Respiratory Rate 18 /min [facility] Work [facility]: Comment on above: Pattern: Unlabored 01-30-2012 08:19-0400 Weight 65.03 kg Mirella Mccracken [facility] Medicine Work Phone: 01-15-2012 12:06-0400 BMI (Body Mass Index) 28.96 kg/m2 Mirella Mccracken [facility] Internal Medicine Work Phone: Comment on above: vison with correction ou=20/50 os=20/50 od=20/50hearing [facility] 01-15-2012 12:06-0400 Body Temperature 97 [degF] [facility] Work [facility]: Comment on above: Method: Oral vison with correctio n ou=20/50 os=20/50 od=20/50hearing [facility] 01-15-2012 12:06-0400 Body weight 65.03 kg [facility] Work [facility]: Comment on above: vison with correction ou=20/50 os=20/50 od=20/50hearing [facility] 01-15-2012 12:06-0400 BP Diastolic 60 mm[Hg] Mirella [facility] Medicine Work Phone: Comment on above: Patient Position: Sitting; Cuff Location : Left Arm; Cuff Size: Large vison with correctio n ou=20/50 os=20/50 od=20/50hearing [facility] 01-15-2012 12:06-0400 BP Systolic 118 mm[Hg] [facility] Internal Medicine Work Phone: Comment on above: Patient Position: Sitting; Cuff Location : Left Arm; Cuff Size: Large vison with correctio n ou=20/50 os=20/50 od=20/50hearing [facility] 01-15-2012 12:06-0400 BSA (Body Surface Area) 1.6 m2 [facility] Internal Medicine Work Phone: Comment on above: vison with correction ou=20/50 os=20/50 od=20/50hearing [facility] 01-15-2012 12:06-0400 Height 149.86 cm Mirella Mccracken [facility] Internal Medicine Work Phone: Comment on above: vison with correction ou=20/50 os=20/50 od=20/50hearing [facility] 01-15-2012 12:06-0400 Pulse (Heart Rate) 68 /min Mirella Mccracken [facility] Internal Medicine Work Phone: Comment on above: Pattern: Regular vison with correctio n ou=20/50 os=20/50 od=20/50hearing [facility] 01-15-2012 12:06-0400 Respiratory Rate 20 /min [facility] Work Phone: Comment on above: Pattern: Unlabored vison with correctio n ou=20/50 os=20/50 od=20/50hearing [facility] 01-15-2012 12:06-0400 Weight 65.03 kg Mirella Mccracken [facility] Internal Medicine Work Phone: Comment on above: vison with correction ou=20/50 os=20/50 od=20/50hearing [facility] 12-31-2011 15:05-0400 BMI (Body Mass Index) 28.88 kg/m2 Mirella Mccracken [facility] Internal Medicine Work Phone: 12-31-2011 15:05-0400 Body weight 64.86 kg Mirella Mccracken [facility] Internal Medicine Work Phone: 12-31-2011 15:05-0400 BP Diastolic 78 mm[Hg] [facility] Work [facility]: Comment on above: Patient Position: Sitting; Cuff Location : Left Arm; Cuff Size: Large 12-31-2011 15:05-0400 BP Systolic 122 mm[Hg] [facility] Work Phone: Comment on above: Patient Position: Sitting; Cuff Location : Left Arm; Cuff Size: Large 12-31-2011 15:05-0400 BSA (Body Surface Area) 1.6 m2 Mirella Mccracken [facility] Internal Medicine Work Phone: 12-31-2011 15:05-0400 Height 149.86 cm Mirella Mccracken [facility] Internal Medicine Work Phone: 12-31-2011 15:05-0400 Pulse (Heart Rate) 60 /min Mirella Mccracken [facility] Internal Medicine Work Phone: Comment on above: Pattern: Regular 12-31-2011 15:05-0400 Respiratory Rate 18 /min Mirella Mccracken [facility] Internal Medicine Work Phone: Comment on above: Pattern: Unlabored 12-31-2011 15:05-0400 Weight 64.86 kg Mirella Mccracken [facility] Internal Medicine Work Phone: 12-26-2011 14:17-0400 BP Diastolic 62 mm[Hg] Mirella Mccracken [facility] Internal Medicine Work Phone: Comment on above: Patient Position: Sitting; Cuff Location : Left Arm; Cuff Size: Standard 12-26-2011 14:17-0400 BP Systolic 122 mm[Hg] Mirella Mccracken [facility] Internal Medicine Work Phone: Comment on above: Patient Position: Sitting; Cuff Location : Left Arm; Cuff Size: Standard 12-26-2011 14:17-0400 Pulse (Heart Rate) 58 /min Mirella Mccracken [facility] Internal Medicine Work Phone: Comment on above: Pattern: Regular 12-26-2011 14:17-0400 Pulse Oximetry 98 % Mirella Mccracken [facility] Internal Medicine Work Phone: Comment on above: Room air 12-26-2011 13:59-0400 Pulse (Heart Rate) 48 /min Mirella Mccracken [facility] Internal Medicine Work Phone: Comment on above: Pattern: Regular 12-26-2011 13:59-0400 Pulse Oximetry 95 % Mirella Mccracken [facility] Internal Medicine Work Phone: Comment on above: Room air 12-26-2011 13:13-0400 BMI (Body Mass Index) 29.49 kg/m2 Mirella Mccracken [facility] Internal Medicine Work Phone: 12-26-2011 13:13-0400 Body Temperature 97.8 [degF] Mirella Mccracken [facility] Internal Medicine Work Phone: Comment on above: Method: Oral 12-26-2011 13:13-0400 Body weight 66.23 kg Mirella Mccracken [facility] Internal Medicine Work Phone: 12-26-2011 13:13-0400 BP Diastolic 68 mm[Hg] Mirella Mccracken [facility] Internal Medicine Work Phone: Comment on above: Patient Position: Sitting; Cuff Location : Left Arm; Cuff Size: Standard 12-26-2011 13:13-0400 BP Systolic 114 mm[Hg] Mirella Mccracken [facility] Internal Medicine Work Phone: Comment on above: Patient Position: Sitting; Cuff Location : Left Arm; Cuff Size: Standard 12-26-2011 13:13-0400 BSA (Body Surface Area) 1.61 m2 Mirella Mccracken [facility] Internal Medicine Work Phone: 12-26-2011 13:13-0400 Height 149.86 cm Mirella Mccracken [facility] Internal Medicine Work Phone: 12-26-2011 13:13-0400 Pulse (Heart Rate) 54 /min Mirella Mccracken [facility] Internal Medicine Work Phone: Comment on above: Pattern: Regular 12-26-2011 13:13-0400 Pulse Oximetry 98 % Mirella Mccracken [facility] Internal Medicine Work Phone: Comment on above: Room air 12-26-2011 13:13-0400 Respiratory Rate 20 /min Mirella Mccracken [facility] Internal Medicine Work Phone: Comment on above: Pattern: Unlabored 12-26-2011 13:13-0400 Weight 66.23 kg Mirella Mccracken [facility] Internal Medicine Work Phone: 12-24-2011 14:07-0400 BMI (Body Mass Index) 29.5 kg/m2 Mirella Mccracken [facility] Internal Medicine Work Phone: 12-24-2011 14:07-0400 Body weight 66.25 kg Mirella Mccracken [facility] Internal Medicine Work Phone: 12-24-2011 14:07-0400 BP Diastolic 60 mm[Hg] Mirella Mccracken [facility] Internal Medicine Work Phone: Comment on above: Patient Position: Sitting; Cuff Location : Left Arm; Cuff Size: Large 12-24-2011 14:07-0400 BP Systolic 124 mm[Hg] Mirella Mccracken [facility] Internal Medicine Work Phone: Comment on above: Patient Position: Sitting; Cuff Location : Left Arm; Cuff Size: Large 12-24-2011 14:07-0400 BSA (Body Surface Area) 1.61 m2 Mirella Mccracken [facility] Internal Medicine Work Phone: 12-24-2011 14:07-0400 Height 149.86 cm Mirella Mccracken [facility] Internal Medicine Work Phone: 12-24-2011 14:07-0400 Pulse (Heart Rate) 60 /min Mirella Mccracken [facility] Internal Medicine Work Phone: Comment on above: Pattern: Regular 12-24-2011 14:07-0400 Respiratory Rate 18 /min Mirella Mccracken [facility] Internal Medicine Work Phone: Comment on above: Pattern: Unlabored 12-24-2011 14:07-0400 Weight 66.25 kg Mirella Mccracken [facility] Internal Medicine Work Phone: 12-15-2011 09:30-0400 BMI (Body Mass Index) 29.31 kg/m2 Mirella Mccracken [facility] Internal Medicine Work Phone: 12-15-2011 09:30-0400 Body Temperature 97.9 [degF] Mirella Mccracken [facility] Internal Medicine Work Phone: Comment on above: Method: Oral 12-15-2011 09:30-0400 Body weight 65.83 kg Mirella Mccracken [facility] Internal Medicine Work Phone: 12-15-2011 09:30-0400 BP Diastolic 60 mm[Hg] Mirella Mccracken [facility] Internal Medicine Work Phone: Comment on above: Patient Position: Sitting; Cuff Location : Left Arm; Cuff Size: Large 12-15-2011 09:30-0400 BP Systolic 104 mm[Hg] Mirella Mccracken [facility] Internal Medicine Work Phone: Comment on above: Patient Position: Sitting; Cuff Location : Left Arm; Cuff Size: Large 12-15-2011 09:30-0400 BSA (Body Surface Area) 1.61 m2 Mirella Mccracken [facility] Internal Medicine Work Phone: 12-15-2011 09:30-0400 Height 149.86 cm Mirella Mccracken [facility] Internal Medicine Work Phone: 12-15-2011 09:30-0400 Pulse (Heart Rate) 60 /min Mirella Mccracken [facility] Internal Medicine Work Phone: Comment on above: Pattern: Regular 12-15-2011 09:30-0400 Respiratory Rate 18 /min Mirella Mccracken [facility] Internal Medicine Work Phone: Comment on above: Pattern: Unlabored 12-15-2011 09:30-0400 Weight 65.83 kg Mirella Mccracken [facility] Internal Medicine Work Phone: 11-26-2011 11:36-0400 BMI (Body Mass Index) 29.69 kg/m2 Mirella Mccracken [facility] Internal Medicine Work Phone: 11-26-2011 11:36-0400 Body Temperature 95.6 [degF] Mirella Mccracken [facility] Internal Medicine Work Phone: Comment on above: Method: Oral 11-26-2011 11:36-0400 Body weight 66.68 kg Mirella Mccracken [facility] Internal Medicine Work Phone: 11-26-2011 11:36-0400 BP Diastolic 62 mm[Hg] Mirella Mccracken [facility] Internal Medicine Work Phone: Comment on above: Patient Position: Sitting; Cuff Location : Left Arm; Cuff Size: Large 11-26-2011 11:36-0400 BP Systolic 118 mm[Hg] Mirella Mccracken [facility] Internal Medicine Work Phone: Comment on above: Patient Position: Sitting; Cuff Location : Left Arm; Cuff Size: Large 11-26-2011 11:36-0400 BSA (Body Surface Area) 1.62 m2 Mirella Mccracken [facility] Internal Medicine Work Phone: 11-26-2011 11:36-0400 Height 149.86 cm Mirella Mccracken [facility] Internal Medicine Work Phone: 11-26-2011 11:36-0400 Pulse (Heart Rate) 64 /min Mirella Mccracken [facility] Internal Medicine Work Phone: Comment on above: Pattern: Regular 11-26-2011 11:36-0400 Respiratory Rate 20 /min Mirella Mccracken [facility] Internal Medicine Work Phone: Comment on above: Pattern: Unlabored 11-26-2011 11:36-0400 Weight 66.68 kg Mirella Mccracken [facility] Internal Medicine Work Phone: 11-12-2011 12:55-0500 BMI (Body Mass Index) 30.51 kg/m2 Mirella Mccracken [facility] Internal Medicine Work Phone: 11-12-2011 12:55-0500 Body weight 68.52 kg Mirella Mccracken [facility] Internal Medicine Work Phone: 11-12-2011 12:55-0500 BP Diastolic 60 mm[Hg] Mirella Mccracken [facility] Internal Medicine Work Phone: Comment on above: Patient Position: Sitting; Cuff Location : Left Arm; Cuff Size: Large 11-12-2011 12:55-0500 BP Systolic 112 mm[Hg] Mirella Mccracken [facility] Internal Medicine Work Phone: Comment on above: Patient Position: Sitting; Cuff Location : Left Arm; Cuff Size: Large 11-12-2011 12:55-0500 BSA (Body Surface Area) 1.64 m2 Mirella Mccracken [facility] Internal Medicine Work Phone: 11-12-2011 12:55-0500 Height 149.86 cm Mirella Mccracken [facility] Internal Medicine Work Phone: 11-12-2011 12:55-0500 Pulse (Heart Rate) 68 /min Mirella Mccracken [facility] Internal Medicine Work Phone: Comment on above: Pattern: Regular 11-12-2011 12:55-0500 Respiratory Rate 20 /min Mirella Mccracken [facility] Internal Medicine Work Phone: Comment on above: Pattern: Unlabored 11-12-2011 12:55-0500 Weight 68.52 kg Mirella Mccracken [facility] Internal Medicine Work Phone: 11-06-2011 12:18-0500 BMI (Body Mass Index) 30.09 kg/m2 Mirella Mccracken [facility] Internal Medicine Work Phone: 11-06-2011 12:18-0500 Body Temperature 98.1 [degF] Mirella [facility] Internal Medicine Work Phone: Comment on above: Method: Oral 11-06-2011 12:18-0500 Body weight 67.59 kg Mirella [facility] Internal Medicine Work Phone: 11-06-2011 12:18-0500 BP Diastolic 70 mm[Hg] Mirella [facility] Internal Medicine Work Phone: Comment on above: Patient Position: Sitting; Cuff Location : Left Arm; Cuff Size: Large 11-06-2011 12:18-0500 BP Systolic 134 mm[Hg] Mirella [facility]rack[facility] Internal Medicine Work Phone: Comment on above: Patient Position: Sitting; Cuff Location : Left Arm; Cuff Size: Large 11-06-2011 12:18-0500 BSA (Body Surface Area) 1.63 m2 Mirella [facility]rack[facility] Internal Medicine Work Phone: 11-06-2011 12:18-0500 Height 149.86 cm Mirella [facility]rack[facility] Internal Medicine Work Phone: 11-06-2011 12:18-0500 Pulse (Heart Rate) 68 /min Mirella [facility] Internal Medicine Work Phone: Comment on above: Pattern: Regular 11-06-2011 12:18-0500 Respiratory Rate 20 /min Mirella [facility]rack[facility] Internal Medicine Work Phone: Comment on above: Pattern: Unlabored 11-06-2011 12:18-0500 Weight 67.59 kg Mirella [facility]rack[facility] Internal Medicine Work Phone: 10-21-2011 13:27-0500 Body Temperature 97.9 [degF] Mirella [facility] Internal Medicine Work Phone: 10-21-2011 13:27-0500 Body weight 67.54 kg Mirella [facility] Internal Medicine Work Phone: 10-21-2011 13:27-0500 BP Diastolic 92 mm[Hg] Mirella [facility] Internal Medicine Work Phone: Comment on above: Patient Position: Sitting; Cuff Location : Left Arm; Cuff Size: Standard 10-21-2011 13:27-0500 BP Systolic 152 mm[Hg] Mirella [facility] Internal Medicine Work Phone: Comment on above: Patient Position: Sitting; Cuff Location : Left Arm; Cuff Size: Standard 10-21-2011 13:27-0500 Pulse (Heart Rate) 99 /min Mirella [facility] Internal Medicine Work Phone: Comment on above: Pattern: Regular 10-21-2011 13:27-0500 Pulse Oximetry 92 % Mirella [facility] Internal Medicine Work Phone: Comment on above: Room air 10-21-2011 13:27-0500 Respiratory Rate 17 /min Mirella [facility] Internal Medicine Work Phone: Comment on above: Pattern: Unlabored 10-21-2011 13:27-0500 Weight 67.54 kg Mirella Mccracken [facility] Internal Medicine Work Phone: 06-05-2011 09:34-0400 BMI (Body Mass Index) 30.14 kg/m2 Mirella Mccracken [facility] Internal Medicine Work Phone: 06-05-2011 09:34-0400 Body Temperature 98.5 [degF] Mirella [facility] Internal Medicine Work Phone: Comment on above: Method: Oral 06-05-2011 09:34-0400 Body weight 67.7 kg Mirella [facility] Internal Medicine Work Phone: 06-05-2011 09:34-0400 BP Diastolic 78 mm[Hg] Mirella [facility] Internal Medicine Work Phone: Comment on above: Patient Position: Sitting; Cuff Location : Left Arm; Cuff Size: Large 06-05-2011 09:34-0400 BP Systolic 142 mm[Hg] Mirella [facility] Internal Medicine Work Phone: Comment on above: Patient Position: Sitting; Cuff Location : Left Arm; Cuff Size: Large 06-05-2011 09:34-0400 BSA (Body Surface Area) 1.63 m2 Mirella [facility]rack[facility] Internal Medicine Work Phone: 06-05-2011 09:34-0400 Height 149.86 cm Mirella Mccrack[facility] Internal Medicine Work Phone: 06-05-2011 09:34-0400 Pulse (Heart Rate) 76 /min Mirella [facility]rack[facility] Internal Medicine Work Phone: Comment on above: Pattern: Regular 06-05-2011 09:34-0400 Respiratory Rate 20 /min Mirella [facility] Internal Medicine Work Phone: Comment on above: Pattern: Unlabored 06-05-2011 09:34-0400 Weight 67.7 kg Mirella [facility] Internal Medicine Work Phone: 05-08-2011 08:10-0400 BMI (Body Mass Index) 28.19 kg/m2 Mirella Mccracken [facility] Internal Medicine Work Phone: 05-08-2011 08:10-0400 Body Temperature 98.7 [degF] Mirella [facility] Internal Medicine Work Phone: Comment on above: Method: Oral 05-08-2011 08:10-0400 Body weight 63.31 kg Mirella [facility] Internal Medicine Work Phone: 05-08-2011 08:10-0400 BP Diastolic 78 mm[Hg] Mirella [facility] Internal Medicine Work Phone: Comment on above: Patient Position: Sitting; Cuff Location : Left Arm; Cuff Size: Standard 05-08-2011 08:10-0400 BP Systolic 142 mm[Hg] Mirella [facility] Internal Medicine Work Phone: Comment on above: Patient Position: Sitting; Cuff Location : Left Arm; Cuff Size: Standard 05-08-2011 08:10-0400 BSA (Body Surface Area) 1.58 m2 Mirella [facility] Internal Medicine Work Phone: 05-08-2011 08:10-0400 Height 149.86 cm Mirella Mccrack[facility] Internal Medicine Work Phone: 05-08-2011 08:10-0400 Pulse (Heart Rate) 84 /min Mirella [facility]rack[facility] Internal Medicine Work Phone: Comment on above: Pattern: Regular 05-08-2011 08:10-0400 Respiratory Rate 17 /min Mirella [facility] Internal Medicine Work Phone: 05-08-2011 08:10-0400 Weight 63.31 kg Mirella [facility]rack[facility] Internal Medicine Work Phone: 05-07-2011 08:42-0400 BMI (Body Mass Index) 28.19 kg/m2 Mirella Mccracken [facility] Internal Medicine Work Phone: 05-07-2011 08:42-0400 Body Temperature 98 [degF] Mirella [facility]rack[facility] Internal Medicine Work Phone: Comment on above: Method: Oral 05-07-2011 08:42-0400 Body weight 63.31 kg Mirella [facility]rack[facility] Internal Medicine Work Phone: 05-07-2011 08:42-0400 BP Diastolic 72 mm[Hg] Mirella [facility] Internal Medicine Work Phone: Comment on above: Patient Position: Sitting; Cuff Location : Left Arm; Cuff Size: Standard 05-07-2011 08:42-0400 BP Systolic 132 mm[Hg] Mirella [facility] Internal Medicine Work Phone: Comment on above: Patient Position: Sitting; Cuff Location : Left Arm; Cuff Size: Standard 05-07-2011 08:42-0400 BSA (Body Surface Area) 1.58 m2 Mirella [facility] Internal Medicine Work Phone: 05-07-2011 08:42-0400 Height 149.86 cm Mirella [facility]rack[facility] Internal Medicine Work Phone: 05-07-2011 08:42-0400 Pulse (Heart Rate) 82 /min Mirella [facility]rack[facility] Internal Medicine Work Phone: Comment on above: Pattern: Regular 05-07-2011 08:42-0400 Respiratory Rate 18 /min Mirella [facility] Internal Medicine Work Phone: Comment on above: Pattern: Unlabored 05-07-2011 08:42-0400 Weight 63.31 kg Mirella Mccrack[facility] Internal Medicine Work Phone: 05-06-2011 16:25-0400 BP Diastolic 82 mm[Hg] Mirella [facility]rack[facility] Internal Medicine Work Phone: Comment on above: Patient Position: Supine; Cuff Location: Right Arm; Cuff Size: Standard 05-06-2011 16:25-0400 BP Systolic 146 mm[Hg] Mirella [facility]rack[facility] Internal Medicine Work Phone: Comment on above: Patient Position: Supine; Cuff Location: Right Arm; Cuff Size: Standard 05-06-2011 16:25-0400 Pulse (Heart Rate) 76 /min Mirella Mccracken [facility] Internal Medicine Work Phone: Comment on above: Pattern: Regular 11-06-2010 12:10-0500 BMI (Body Mass Index) 28.19 kg/m2 Mirella Mccracken [facility] Internal Medicine Work Phone: 11-06-2010 12:10-0500 Body Temperature 97.3 [degF] Mirella Mccracken [facility] Internal Medicine Work Phone: Comment on above: Method: Oral 11-06-2010 12:10-0500 Body weight 63.31 kg Mirella [facility]rack[facility] Internal Medicine Work Phone: 11-06-2010 12:10-0500 BP Diastolic 82 mm[Hg] Mirella [facility]rack[facility] Internal Medicine Work Phone: Comment on above: Patient Position: Sitting; Cuff Location : Left Arm; Cuff Size: Standard 11-06-2010 12:10-0500 BP Systolic 144 mm[Hg] Mirella [facility]rack[facility] Internal Medicine Work Phone: Comment on above: Patient Position: Sitting; Cuff Location : Left Arm; Cuff Size: Standard 11-06-2010 12:10-0500 BSA (Body Surface Area) 1.58 m2 Mirella [facility] Internal Medicine Work Phone: 11-06-2010 12:10-0500 Height 149.86 cm Mirella [facility] Internal Medicine Work Phone: 11-06-2010 12:10-0500 Pulse (Heart Rate) 76 /min Mirella [facility]rack[facility] Internal Medicine Work Phone: Comment on above: Pattern: Regular 11-06-2010 12:10-0500 Respiratory Rate 18 /min Mirella [facility]rack[facility] Internal Medicine Work Phone: Comment on above: Pattern: Unlabored 11-06-2010 12:10-0500 Weight 63.31 kg Mirella [facility] Internal Medicine Work Phone: 11-04-2010 09:00-0500 BMI (Body Mass Index) 28.19 kg/m2 Mirella Mccracken [facility] Internal Medicine Work Phone: 11-04-2010 09:00-0500 Body weight 63.31 kg Mirella [facility]rack[facility] Internal Medicine Work Phone: 11-04-2010 09:00-0500 BP Diastolic 72 mm[Hg] Mirella [facility] Internal Medicine Work Phone: Comment on above: Patient Position: Sitting; Cuff Location : Left Arm; Cuff Size: Standard 11-04-2010 09:00-0500 BP Systolic 122 mm[Hg] Mirella [facility]rack[facility] Internal Medicine Work Phone: Comment on above: Patient Position: Sitting; Cuff Location : Left Arm; Cuff Size: Standard 11-04-2010 09:00-0500 BSA (Body Surface Area) 1.58 m2 Mirella [facility] Internal Medicine Work Phone: 11-04-2010 09:00-0500 Height 149.86 cm Mirella [facility]rack[facility] Internal Medicine Work Phone: 11-04-2010 09:00-0500 Pulse (Heart Rate) 62 /min Mirella [facility]rack[facility] Internal Medicine Work Phone: Comment on above: Pattern: Regular 11-04-2010 09:00-0500 Respiratory Rate 16 /min Mirella [facility]rack[facility] Internal Medicine Work Phone: Comment on above: Pattern: Unlabored 11-04-2010 09:00-0500 Weight 63.31 kg Mirella [facility]rack[facility] Internal Medicine Work Phone: 10-14-2010 09:31-0500 BMI (Body Mass Index) 28.19 kg/m2 Mirella Mccracken [facility] Internal Medicine Work Phone: 10-14-2010 09:31-0500 Body weight 63.31 kg Mirella [facility]rack[facility] Internal Medicine Work Phone: 10-14-2010 09:31-0500 BP Diastolic 70 mm[Hg] Mirella [facility]rack[facility] Internal Medicine Work Phone: Comment on above: Patient Position: Sitting; Cuff Location : Left Arm; Cuff Size: Large 10-14-2010 09:31-0500 BP Systolic 132 mm[Hg] Mirella [facility]rack[facility] Internal Medicine Work Phone: Comment on above: Patient Position: Sitting; Cuff Location : Left Arm; Cuff Size: Large 10-14-2010 09:31-0500 BSA (Body Surface Area) 1.58 m2 Mirella [facility]rack[facility] Internal Medicine Work Phone: 10-14-2010 09:31-0500 Height 149.86 cm Mirella Mccracken [facility] Internal Medicine Work Phone: 10-14-2010 09:31-0500 Pulse (Heart Rate) 72 /min Mirella Mccracken [facility] Internal Medicine Work Phone: Comment on above: Pattern: Regular 10-14-2010 09:31-0500 Respiratory Rate 20 /min Mirella [facility]ccrack[facility] Internal Medicine Work Phone: Comment on above: Pattern: Unlabored 10-14-2010 09:31-0500 Weight 63.31 kg Mirella [facility]ccracken [facility] Internal Medicine Work Phone: 07-17-2010 08:52-0400 BMI (Body Mass Index) 29.73 kg/m2 [facility] Internal [facility] Work Phone: 07-17-2010 08:52-0400 Body weight 66.76 kg Mirella [facility]rack[facility] Internal Medicine Work Phone: 07-17-2010 08:52-0400 BP Diastolic 78 mm[Hg] Mirella [facility]rack[facility] Internal Medicine Work Phone: Comment on above: Patient Position: Sitting; Cuff Location : Left Arm; Cuff Size: Large 07-17-2010 08:52-0400 BP Systolic 138 mm[Hg] Mirella [facility]rack[facility] Internal Medicine Work Phone: Comment on above: Patient Position: Sitting; Cuff Location : Left Arm; Cuff Size: Large 07-17-2010 08:52-0400 BSA (Body Surface Area) 1.62 m2 Mirella [facility]rack[facility] Internal Medicine Work Phone: 07-17-2010 08:52-0400 Height 149.86 cm Mirella [facility]rack[facility] Internal Medicine Work Phone: 07-17-2010 08:52-0400 Pulse (Heart Rate) 60 /min Mirella [facility]racken [facility] Internal Medicine Work Phone: Comment on above: Pattern: Regular 07-17-2010 08:52-0400 Respiratory Rate 20 /min Mirella [facility]rack[facility] Internal Medicine Work Phone: Comment on above: Pattern: Unlabored 07-17-2010 08:52-0400 Weight 66.76 kg Mirella Mccracken [facility] Internal Medicine Work Phone: 06-17-2010 10:04-0400 BMI (Body Mass Index) 29.6 kg/m2 Mirella Solano [facility] Internal Medicine Work Phone: 06-17-2010 10:04-0400 Body weight 66.48 kg Mirella [facility]rack[facility] Internal Medicine Work Phone: 06-17-2010 10:04-0400 BP Diastolic 70 mm[Hg] Mirella [facility]rack[facility] Internal Medicine Work Phone: Comment on above: Patient Position: Sitting; Cuff Location : Left Arm; Cuff Size: Large 06-17-2010 10:04-0400 BP Systolic 122 mm[Hg] Mirella M[facility]rack[facility] Internal Medicine Work Phone: Comment on above: Patient Position: Sitting; Cuff Location : Left Arm; Cuff Size: Large 06-17-2010 10:04-0400 BSA (Body Surface Area) 1.62 m2 Mirella [facility]rack[facility] Internal Medicine Work Phone: 06-17-2010 10:04-0400 Height 149.86 cm Mirella M[facility]racken [facility] Internal Medicine Work Phone: 06-17-2010 10:04-0400 Pulse (Heart Rate) 68 /min Mirella [facility]rack[facility] Internal Medicine Work Phone: Comment on above: Pattern: Regular 06-17-2010 10:04-0400 Respiratory Rate 20 /min Mirella [facility] Internal Medicine Work Phone: Comment on above: Pattern: Unlabored 06-17-2010 10:04-0400 Weight 66.48 kg Mirella [facility]rack[facility] Internal Medicine Work Phone: 01-25-2010 13:25-0400 Body weight 66.91 kg Mirella Mccracken [facility] Internal Medicine Work Phone: 01-25-2010 13:25-0400 BP Diastolic 76 mm[Hg] Mirella [facility]racken [facility] Internal Medicine Work Phone: Comment on above: Patient Position: Sitting; Cuff Location : Left Arm; Cuff Size: Standard 01-25-2010 13:25-0400 BP Systolic 132 mm[Hg] Mirella [facility]rack[facility] Internal Medicine Work Phone: Comment on above: Patient Position: Sitting; Cuff Location : Left Arm; Cuff Size: Standard 01-25-2010 13:25-0400 Pulse (Heart Rate) 68 /min Mirella Mccracken [facility] Internal Medicine Work Phone: Comment on above: Pattern: Regular 01-25-2010 13:25-0400 Respiratory Rate 18 /min Mirella Mccracken [facility] Internal Medicine Work Phone: Comment on above: Pattern: Unlabored 01-25-2010 13:25-0400 Weight 66.91 kg Mirella Mccracken [facility] Internal Medicine Work Phone: 12-13-2009 11:12-0400 BMI (Body Mass Index) 29.32 kg/m2 Mirella Mccracken [facility] Internal Medicine Work Phone: 12-13-2009 11:12-0400 Body weight 65.86 kg Mirella Mccracken [facility] Internal Medicine Work Phone: 12-13-2009 11:12-0400 BP Diastolic 78 mm[Hg] Mirella Mccracken [facility] Internal Medicine Work Phone: Comment on above: Patient Position: Sitting; Cuff Location : Left Arm; Cuff Size: Large 12-13-2009 11:12-0400 BP Systolic 118 mm[Hg] Mirella Mccracken [facility] Internal Medicine Work Phone: Comment on above: Patient Position: Sitting; Cuff Location : Left Arm; Cuff Size: Large 12-13-2009 11:12-0400 BSA (Body Surface Area) 1.61 m2 Mirella Mccracken [facility] Internal Medicine Work Phone: 12-13-2009 11:12-0400 Height 149.86 cm Mirella Mccracken [facility] Internal Medicine Work Phone: 12-13-2009 11:12-0400 Pulse (Heart Rate) 64 /min Mirella Mccracken [facility] Internal Medicine Work Phone: Comment on above: Pattern: Regular 12-13-2009 11:12-0400 Respiratory Rate 20 /min Mirella Mccracken [facility] Internal Medicine Work Phone: Comment on above: Pattern: Unlabored 12-13-2009 11:12-0400 Weight 65.86 kg Mirella Mccracken [facility] Internal Medicine Work Phone: 10-03-2009 11:50-0500 BMI (Body Mass Index) 27.37 kg/m2 [facility] Work Phone: 10-03-2009 11:50-0500 Body weight 61.46 kg Mirella Mccracken [facility] Internal Medicine Work Phone: 10-03-2009 11:50-0500 BP Diastolic 78 mm[Hg] Mirella Mccracken [facility] Internal Medicine Work Phone: Comment on above: Patient Position: Sitting; Cuff Location : Left Arm; Cuff Size: Large 10-03-2009 11:50-0500 BP Systolic 120 mm[Hg] Mirella Mccracken [facility] Internal Medicine Work Phone: Comment on above: Patient Position: Sitting; Cuff Location : Left Arm; Cuff Size: Large 10-03-2009 11:50-0500 BSA (Body Surface Area) 1.56 m2 Mirella Mccracken [facility] Internal Medicine Work Phone: 10-03-2009 11:50-0500 Height 149.86 cm Mirella Mccracken [facility] Internal Medicine Work Phone: 10-03-2009 11:50-0500 Pulse (Heart Rate) 64 /min Mirella Mccracken [facility] Internal Medicine Work Phone: Comment on above: Pattern: Regular 10-03-2009 11:50-0500 Respiratory Rate 20 /min Mirella Mccracken [facility] Internal Medicine Work Phone: Comment on above: Pattern: Unlabored 10-03-2009 11:50-0500 Weight 61.46 kg Mirella Mccracken [facility] Internal Medicine Work Phone: 01-17-2009 07:54-0400 BMI (Body Mass Index) 27.37 kg/m2 Mirella Sol[facility] Internal Medicine Work Phone: 01-17-2009 07:54-0400 Body weight 61.46 kg Mirella [facility]ccracken [facility] Internal Medicine Work Phone: 01-17-2009 07:54-0400 BP Diastolic 60 mm[Hg] Mirella Mccracken [facility] Internal Medicine Work Phone: Comment on above: Patient Position: Sitting; Cuff Location : Left Arm; Cuff Size: Large 05-06-2009 07:54-0400 BP Systolic 112 mm[Hg] Mirella M[facility]racken [facility] Internal Medicine Work Phone: Comment on above: Patient Position: Sitting; Cuff Location : Left Arm; Cuff Size: Large 01-17-2009 07:54-0400 BSA (Body Surface Area) 1.56 m2 Mirella Mccracken [facility] Internal Medicine Work Phone: 01-17-2009 07:54-0400 Head Circumference 0 cm Mirella Mccracken [facility] Internal Medicine Work Phone: 01-17-2009 07:54-0400 Height 149.86 cm Mirella Mccracken [facility] Internal Medicine Work Phone: 01-17-2009 07:54-0400 Pulse (Heart Rate) 64 /min Mirella Mccracken [facility] Internal Medicine Work Phone: Comment on above: Pattern: Regular 01-17-2009 07:54-0400 Respiratory Rate 20 /min Mirella Mccracken [facility] Internal Medicine Work Phone: Comment on above: Pattern: Unlabored 01-17-2009 07:54-0400 Weight 61.46 kg Mirella Mccracken [facility] Internal Medicine Work Phone: 01-12-2009 07:52-0400 BMI (Body Mass Index) 27.37 kg/m2 Mirella Mccracken [facility] Internal Medicine Work Phone: 01-12-2009 07:52-0400 Body weight 61.46 kg Mirella Mccracken [facility] Internal Medicine Work Phone: 01-12-2009 07:52-0400 BP Diastolic 78 mm[Hg] Mirella Mccracken [facility] Internal Medicine Work Phone: Comment on above: Patient Position: Sitting; Cuff Location : Left Arm; Cuff Size: Large 01-12-2009 07:52-0400 BP Systolic 122 mm[Hg] Mirella Mccracken [facility] Internal Medicine Work Phone: Comment on above: Patient Position: Sitting; Cuff Location : Left Arm; Cuff Size: Large 01-12-2009 07:52-0400 BSA (Body Surface Area) 1.56 m2 Mirella Mccracken [facility] Internal Medicine Work Phone: 01-12-2009 07:52-0400 Head Circumference 0 cm Mirella Mccracken [facility] Internal Medicine Work Phone: 01-12-2009 07:52-0400 Height 149.86 cm Mirella Mccracken [facility] Internal Medicine Work Phone: 01-12-2009 07:52-0400 Pulse (Heart Rate) 72 /min Mirella Mccracken [facility] Internal Medicine Work Phone: Comment on above: Pattern: Regular 01-12-2009 07:52-0400 Respiratory Rate 18 /min Mirella Mccracken [facility] Internal Medicine Work Phone: Comment on above: Pattern: Unlabored 01-12-2009 07:52-0400 Weight 61.46 kg Mirella Mccracken [facility] Internal Medicine Work Phone: 01-02-2009 09:31-0400 BMI (Body Mass Index) 27.37 kg/m2 Mirella Mccracken [facility] Internal Medicine Work Phone: 01-02-2009 09:31-0400 Body weight 61.46 kg Mirella Mccracken [facility] Internal Medicine Work Phone: 01-02-2009 09:31-0400 BP Diastolic 78 mm[Hg] Mirella Mccracken [facility] Internal Medicine Work Phone: Comment on above: Patient Position: Sitting; Cuff Location : Left Arm; Cuff Size: Large 01-02-2009 09:31-0400 BP Systolic 138 mm[Hg] [facility]: Comment on above: Patient Position: Sitting; Cuff Location : Left Arm; Cuff Size: Large 01-02-2009 09:31-0400 BSA (Body Surface Area) 1.56 m2 Mirella Mccracken [facility] Internal Medicine Work Phone: 01-02-2009 09:31-0400 Head Circumference 0 cm [facility] Work [facility]: 01-02-2009 09:31-0400 Height 149.86 cm Mirella Mccracken [facility] Internal Medicine Work Phone: 01-02-2009 09:31-0400 Pulse (Heart Rate) 72 /min Mirella Mccracken [facility] Internal Medicine Work Phone: Comment on above: Pattern: Regular 01-02-2009 09:31-0400 Respiratory Rate 20 /min Mirella Mccracken [facility] Internal Medicine Work Phone: Comment on above: Pattern: Unlabored 01-02-2009 09:31-0400 Weight 61.46 kg Mirella Mccracken [facility] Internal Medicine Work Phone: 12-07-2008 09:40-0400 BMI (Body Mass Index) 27.28 kg/m2 Mirella Mccracken [facility] Internal Medicine Work Phone: Comment on above: vision with correction OD= 20/50 OS=20/5 0 OU=20/50 12-07-2008 09:40-0400 Body weight 61.26 kg Mirella Mccracken [facility] Internal Medicine Work Phone: Comment on above: vision with correction OD= 20/50 OS=20/5 0 OU=20/50 12-07-2008 09:40-0400 BP Diastolic 78 mm[Hg] [facility] Work [facility]: Comment on above: Patient Position: Sitting; Cuff Location : Left Arm; Cuff Size: Large vision with correcti on OD= 20/50 OS=20/50 OU=20/50 12-07-2008 09:40-0400 BP Systolic 122 mm[Hg] Mirella [facility]: Comment on above: Patient Position: Sitting; Cuff Location : Left Arm; Cuff Size: Large vision with correcti on OD= 20/50 OS=20/50 OU=20/50 12-07-2008 09:40-0400 BSA (Body Surface Area) 1.56 m2 [facility]: Comment on above: vision with correction OD= 20/50 OS=20/5 0 OU=20/50 12-07-2008 09:40-0400 Head Circumference 0 cm Mirella [facility] Internal Medicine Work Phone: Comment on above: vision with correction OD= 20/50 OS=20/5 0 OU=20/50 12-07-2008 09:40-0400 Height 149.86 cm Mirella [facility] Medicine Work Phone: Comment on above: vision with correction OD= 20/50 OS=20/5 0 OU=20/50 12-07-2008 09:40-0400 Pulse (Heart Rate) 72 /min Mirella [facility] Internal Medicine Work Phone: Comment on above: Pattern: Regular vision with correcti on OD= 20/50 OS=20/50 OU=20/50 12-07-2008 09:40-0400 Respiratory Rate 20 /min Mirella [facility] Internal Medicine Work Phone: Comment on above: Pattern: Unlabored vision with correcti on OD= 20/50 OS=20/50 OU=20/50 12-07-2008 09:40-0400 Weight 61.26 kg Mirella [facility] Medicine Work Phone: Comment on above: vision with correction OD= 20/50 OS=20/5 0 OU=20/50 10-04-2008 09:20-0500 BMI (Body Mass Index) 26.31 kg/m2 Mirella Mccracken [facility] Internal Medicine Work Phone: 10-04-2008 09:20-0500 Body weight 59.08 kg [facility] Internal Medicine Work Phone: 10-04-2008 09:20-0500 BP Diastolic 76 mm[Hg] [facility] Internal Medicine Work Phone: Comment on above: Patient Position: Sitting; Cuff Location : Left Arm; Cuff Size: Large 10-04-2008 09:20-0500 BP Systolic 124 mm[Hg] [facility] Internal Medicine Work Phone: Comment on above: Patient Position: Sitting; Cuff Location : Left Arm; Cuff Size: Large 10-04-2008 09:20-0500 BSA (Body Surface Area) 1.54 m2 [facility] Internal Medicine Work Phone: 10-04-2008 09:20-0500 Head Circumference 0 cm Mirella Mccracken [facility] Internal Medicine Work Phone: 10-04-2008 09:20-0500 Height 149.86 cm Mirella Mccracken [facility] Internal Medicine Work Phone: 10-04-2008 09:20-0500 Pulse (Heart Rate) 72 /min Mirella Mccracken [facility] Internal Medicine Work Phone: Comment on above: Pattern: Regular 10-04-2008 09:20-0500 Respiratory Rate 20 /min Mirella Mccracken [facility] Internal Medicine Work Phone: Comment on above: Pattern: Unlabored 10-04-2008 09:20-0500 Weight 59.08 kg Mirella Mccracken [facility] Internal Medicine Work Phone: 09-21-2008 14:19-0500 BMI (Body Mass Index) 26.9 kg/m2 Mirella Mccracken [facility] Internal Medicine Work Phone: 09-21-2008 14:19-0500 Body weight 60.41 kg Mirella Mccracken [facility] Internal Medicine Work Phone: 09-21-2008 14:19-0500 BP Diastolic 80 mm[Hg] Mirella Mccracken [facility] Internal Medicine Work Phone: Comment on above: Patient Position: Sitting; Cuff Location : Left Arm; Cuff Size: Standard 09-21-2008 14:19-0500 BP Systolic 142 mm[Hg] Mirella Mccracken [facility] Internal Medicine Work Phone: Comment on above: Patient Position: Sitting; Cuff Location : Left Arm; Cuff Size: Standard 09-21-2008 14:19-0500 BSA (Body Surface Area) 1.55 m2 Mirella Mccracken [facility] Internal Medicine Work Phone: 09-21-2008 14:19-0500 Head Circumference 0 cm Mirella Mccracken [facility] Internal Medicine Work Phone: 09-21-2008 14:19-0500 Height 149.86 cm Mirella Mccracken [facility] Internal Medicine Work Phone: 09-21-2008 14:19-0500 Pulse (Heart Rate) 64 /min Mirella Mccracken [facility] Internal Medicine Work Phone: Comment on above: Pattern: Regular 09-21-2008 14:19-0500 Respiratory Rate 20 /min Mirella Mccracken [facility] Internal Medicine Work Phone: Comment on above: Pattern: Unlabored 09-21-2008 14:19-0500 Weight 60.41 kg Mirella Mccracken [facility] Internal Medicine Work Phone: 08-24-2008 13:56-0500 BMI (Body Mass Index) 26.9 kg/m2 Mirella Mccracken [facility] Internal Medicine Work Phone: 08-24-2008 13:56-0500 Body weight 60.41 kg Mirella Mccracken [facility] Internal Medicine Work Phone: 08-24-2008 13:56-0500 BP Diastolic 88 mm[Hg] Mirella Mccracken [facility] Internal Medicine Work Phone: Comment on above: Patient Position: Sitting; Cuff Location : Left Arm; Cuff Size: Standard 08-24-2008 13:56-0500 BP Systolic 142 mm[Hg] Mirella Mccracken [facility] Internal Medicine Work Phone: Comment on above: Patient Position: Sitting; Cuff Location : Left Arm; Cuff Size: Standard 08-24-2008 13:56-0500 BSA (Body Surface Area) 1.55 m2 Mirella Mccracken [facility] Internal Medicine Work Phone: 08-24-2008 13:56-0500 Head Circumference 0 cm Mirella Mccracken [facility] Internal Medicine Work Phone: 08-24-2008 13:56-0500 Height 149.86 cm Mirella Mccracken [facility] Internal Medicine Work Phone: 08-24-2008 13:56-0500 Pulse (Heart Rate) 80 /min Mirella Mccracken [facility] Internal Medicine Work Phone: Comment on above: Pattern: Regular 08-24-2008 13:56-0500 Respiratory Rate 20 /min Mirella Mccracken [facility] Internal Medicine Work Phone: Comment on above: Pattern: Unlabored 08-24-2008 13:56-0500 Weight 60.41 kg Mirella Mccracken [facility] Internal Medicine Work Phone: 06-28-2008 14:04-0400 BMI (Body Mass Index) 26.93 kg/m2 Mirella Mccracken [facility] Internal Medicine Work Phone: 06-28-2008 14:04-0400 Body weight 60.47 kg Mirella Mccracken [facility] Internal Medicine Work Phone: 06-28-2008 14:04-0400 BP Diastolic 78 mm[Hg] Mirella Mccracken [facility] Internal Medicine Work Phone: Comment on above: Patient Position: Sitting; Cuff Location : Left Arm; Cuff Size: Standard 06-28-2008 14:04-0400 BP Systolic 140 mm[Hg] Mirella Mccracken [facility] Internal Medicine Work Phone: Comment on above: Patient Position: Sitting; Cuff Location : Left Arm; Cuff Size: Standard 06-28-2008 14:04-0400 BSA (Body Surface Area) 1.55 m2 Mirella Mccracken [facility] Internal Medicine Work Phone: 06-28-2008 14:04-0400 Head Circumference 0 cm Mirella Mccracken [facility] Internal Medicine Work Phone: 06-28-2008 14:04-0400 Height 149.86 cm Mirella Mccracken [facility] Internal Medicine Work Phone: 06-28-2008 14:04-0400 Pulse (Heart Rate) 68 /min Mirella Mccracken [facility] Internal Medicine Work Phone: Comment on above: Pattern: Regular 06-28-2008 14:04-0400 Respiratory Rate 16 /min Mirella Mccracken [facility] Internal Medicine Work Phone: Comment on above: Pattern: Unlabored 06-28-2008 14:04-0400 Weight 60.47 kg Mirella Mccracken [facility] Internal Medicine Work Phone: Encounters Encounter Date Encounter Type Care Provider Facility Start: 07-17-2025 ambulatory Efewongbe Oleghe OLS Fa cility:[facility] Start: 07-12-2025 ambulatory Efenriquetaongmacarena Christiansone OLS Fa cility:[facility] Start: 06-28-2025 End: 06-28-2025 Emergency department patient visit Dr. Aric Oneil MD -Emergency Department Work Phone: Start: 06-19-2025 Registered Referred Yesika Dolan Start: 06-19-2025 End: 06-19-2025 ambulatory Efky Christiansone OLS Facility:[facility] Start: 06-03-2025 ambulatory Efky Christiansone OLS Fa cility:[facility] Start: 06-03-2025 Registered Referred Yesika Dolan Start: 05-22-2025 ambulatory Efky Faust OLS Fa cility:[facility] Start: 05-22-2025 Registered Referred Yesika Dolan Start: 05-16-2025 End: 05-16-2025 ambulatory Yesika Faust Facility:[facility] Start: 05-16-2025 Registered Referred Yesika Dolan Start: 05-16-2025 End: 05-16-2025 ambulatory Yesika Christiansone OLS Facility:[facility] Start: 04-20-2025 End: 04-20-[address] Yesika Faust MD Work Phone: -[facility] Start: 04-20-2025 End: 04-20-2025 Patient encounter procedure Miguel YATES -[facility] Work Phone: Start: 04-14-2025 Registered Referred Yesika Dolan Start: 04-14-2025 End: 04-14-2025 ambulatory Efenriquetadenae VICENTE Facility:[facility] Start: 03-20-2025 End: 03-20-[address] Yesika Faust MD Work Phone: [facility] Start: 03-20-2025 End: 03-20-2025 Patient encounter procedure Zeina MEEK -[facility] Work Phone: Start: 03-14-2025 End: 03-14-[address] Yesika Faust MD Work Phone: [facility] Start: 03-14-2025 End: 03-14-[address] Yesika Faust MD -[facility] Work Phone: Start: 03-14-2025 Registered Referred Yesika Dolan Start: 03-14-2025 End: 03-14-2025 ambulatory Yesika VICENTE Facility:[facility] Start: 03-06-2025 Registered Referred Yesika Dolan Start: 03-06-2025 End: 03-06-[address] Yesika Faust MD Work Phone: [facility] Start: 03-06-2025 End: 03-06-2025 Patient encounter procedure Zeina MEEK [facility] Work Phone: Start: 02-27-2025 Registered Referred Yesika Dolan Start: 02-27-2025 End: 02-27-2025 ambulatory Yesika VICENTE Facility:[facility] Start: 02-23-2025 End: 02-23-[address] Yesika Faust MD Work Phone: [facility] Start: 02-23-2025 End: 02-23-2025 Patient encounter procedure Miguel YATES -[facility] Work Phone: Start: 02-13-2025 ambulatory Yesika VICENTE Fa cility:[facility] Start: 02-13-2025 Registered Referred Yesika Dolan Start: 01-31-2025 End: 01-31-[address] Yesika Faust MD Work Phone: -[facility] Start: 01-31-2025 End: 01-31-[address] Yesika Faust MD -[facility] Work Phone: Start: 01-23-2025 Registered Referred Zeina Dolan Start: 01-23-2025 End: 01-23-2025 ambulatory Yesika Faust Facility:[facility] Start: 01-18-2025 End: 01-18-2025 Departed Referred Yesika Dolan Start: 01-18-2025 Registered Referred Yesika Dolan Start: 01-18-2025 End: 01-18-2025 ambulatory Yesika VICENTE Facility:[facility] Start: 01-14-2025 End: 01-14-[address] Yesika Faust MD Work Phone: [facility] Work Phone: Start: 01-14-2025 End: 01-14-2025 Departed Referred Yesika Dolan Start: 01-14-2025 End: 01-14-2025 ambulatory Yesika VICENTE Facility:[facility] Start: 01-12-2025 End: 01-12-[address] Yesika Faust MD Work Phone: [facility] Work Phone: Start: 01-12-2025 End: 01-12-2025 Departed Referred Yesika Dolan Start: 01-12-2025 Registered Referred Yesika Dolan Start: 01-12-2025 End: 01-12-2025 ambulatory Yesika VICENTE Facility:[facility] Start: 12-16-2024 End: 12-16-[address] Yesika Faust MD Work Phone: [facility] Work Phone: Start: 12-16-2024 End: 12-16-2024 Patient encounter procedure Zeina MEEK -[facility] Work Phone: Start: 12-14-2024 End: 12-14-[address] Yesika Faust MD Work Phone: [facility] Work Phone: Start: 12-14-2024 End: 12-14-2024 Departed Referred Yesika Dolan Start: 12-14-2024 Registered Referred Yesika Dolan Start: 12-14-2024 End: 12-14-2024 ambulatory Yesika VICENTE Facility:[facility] Start: 11-15-2024 End: 11-15-2024 ambulatory Efewsaeidbe Christianne Facility:[facility] Start: 11-15-2024 End: 11-15-[address] Yesika Faust MD -[facility] Work Phone: Start: 11-14-2024 End: 11-14-[address] Yesika Faust MD Work Phone: [facility] Work Phone: Start: 11-14-2024 End: 11-14-2024 Departed Referred Yesika Dolan Start: 11-14-2024 End: 11-14-2024 ambulatory Yesika VICENTE Facility:[facility] Start: 10-27-2024 End: 10-27-2024 ambulatory Efewongbe Olekathiee Facility:[facility] Start: 10-27-2024 End: 10-27-2024 Patient encounter procedure Miguel YATES -[facility] Work Phone: Start: 10-17-2024 ambulatory Yesika VICENTE Fa cility:[facility] Start: 10-17-2024 Registered Referred Yesika Dolan Start: 10-14-2024 ambulatory Efewongbe Sammye OLS Fa cility:[facility] Start: 10-14-2024 Registered Referred Yesika Dolan Start: 09-20-2024 End: 09-20-2024 ambulatory Efewongbe Sammye Facility:[facility] Start: 09-20-2024 End: 09-20-[address] Yesika Faust MD -[facility] Work Phone: Start: 09-16-2024 ambulatory Efewongbe Sammye OLS Fa cility:[facility] Start: 09-16-2024 Registered Referred Yesika Dolan Start: 08-16-2024 End: 08-16-2024 Departed Referred Yesika Dolan Start: 08-16-2024 End: 08-16-2024 ambulatory Efenriquetaongbe Sammye OLS Facility:[facility] Start: 08-09-2024 End: 08-09-2024 ambulatory Efewongbe Sammye Facility:[facility] Start: 08-04-2024 End: 08-04-2024 ambulatory [facility] TOTALER Facility:[facility] Start: 08-04-2024 End: 08-04-2024 ambulatory Efewongbe Oleghe OLS Facility:[facility] Start: 08-02-2024 End: 08-02-2024 ambulatory Efewongbe Oleghe OLS Facility:[facility] Start: 07-28-2024 End: 07-28-2024 ambulatory [facility]OTAL[facility] Facility:[facility] Start: 12-22-2023 End: 12-22-[address] Cl Tsang Work Phone: [facility] Work Phone: Start: 11-30-2023 End: 11-30-[address] Cl Tsang Work Phone: [facility] Work Phone: Start: 11-17-2023 End: 11-17-[address] Cl Tsang Work Phone: [facility] Work Phone: Start: 11-17-2023 End: 11-17-[address] Cl Tsang Work Phone: [facility] [place] Start: 10-20-2023 End: 10-20-[address] Cl Tsang Work Phone: [facility] Work Phone: Start: 10-08-2023 End: 10-08-[address] Cl Tsang Work Phone: [facility] Work Phone: Start: 08-25-2023 End: 08-25-[address] Cl Tsang Work Phone: [facility] Work Phone: Start: 08-18-2023 End: 08-18-[address] Cl Tsang Work Phone: [facility] Work Phone: Start: 08-18-2023 End: 08-18-[address] Cl Tsang Work Phone: [facility] Start: 06-30-2023 End: 06-30-[address] Cl Tsang Work Phone: [facility] Work Phone: Start: 06-08-2023 End: 06-08-[address] Cl Tsang Work Phone: [facility] Work Phone: Start: 06-04-2023 End: 06-04-[address] Cl Tsang Work Phone: [facility] Work Phone: Start: 05-28-2023 End: 05-28-[address] Cl Tsang Work Phone: [facility] Work Phone: Start: 05-21-2023 End: 05-21-[address] Cl Tsang Work Phone: [facility] Work Phone: Start: 05-19-2023 End: 05-19-[address] Cl Tsang Work Phone: [facility] [place] Start: 05-13-2023 End: 05-13-[address] Cl Tsang Work Phone: [facility] Work Phone: Start: 04-09-2023 End: 04-09-[address] Cl Tsang Work Phone: [facility] Work Phone: Start: 04-07-2023 End: 04-07-[address] Cl Tsang Work Phone: [facility] Work Phone: Start: 02-17-2023 End: 02-17-[address] Cl Tsang Work Phone: [facility] Work Phone: Start: 02-17-2023 End: 02-17-[address] Cl Tsang Work Phone: [facility] Work Phone: Start: 02-17-2023 End: 02-17-[address] Cl Tsang Work Phone: [facility] Start: 02-10-2023 End: 02-10-[address] Cl Tsang Work Phone: [facility] Work Phone: Start: 01-12-2023 End: 01-12-[address] Cl Tsang Work Phone: [facility] Work Phone: Start: 01-12-2023 End: 01-12-[address] Cl Tsang Work Phone: [facility] [place] Start: 12-29-2022 End: 12-29-[address] Cl Tsang Work Phone: [facility] Start: 12-23-2022 End: 12-23-[address] Cl Tsang Work Phone: [facility] Start: 12-05-2022 End: 12-05-[address] Cl Tsang Work Phone: [facility] Start: 11-18-2022 End: 11-18-[address] Cl Tsang Work Phone: [facility] Work Phone: Start: 11-18-2022 End: 11-18-[address] Cl Tsang Work Phone: [facility] Start: 10-28-2022 End: 10-28-[address] Cl Tsang Work Phone: [facility] Start: 10-17-2022 End: 10-17-[address] Cl Tsang Work Phone: [facility] Start: 10-08-2022 End: 10-08-[address] Cl Tsang Work Phone: [facility] Start: 09-01-2022 End: 09-01-[address] Cl Tsang Work Phone: [facility] Start: 08-19-2022 End: 08-19-[address] Cl Tsang Work Phone: [facility] Work Phone: Start: 08-19-2022 End: 08-19-[address] Cl Tsang Work Phone: [facility] [place] Start: 07-29-2022 End: 07-29-[address] Cl Tsang Work Phone: [facility] Start: 05-29-2022 End: 05-30-[address] Cl Tsang Work Phone: [facility] Start: 05-20-2022 End: 05-20-[address] Cl Tsang Work Phone: [facility] Work Phone: Start: 05-20-2022 End: 05-20-[address] Cl Tsang Work Phone: [facility] Start: 04-18-2022 End: 04-18-[address] Cl Tsang Work Phone: [facility] Start: 03-07-[address] Cl herrera Work Phone: [facility] Start: 01-13-2022 End: 01-13-[address] Cl Tsang Work Phone: [facility] Start: 11-14-2021 End: 11-14-2021 Patient encounter procedure TRUDY YATES Work Phone: [facility] Start: 11-12-2021 End: 11-12-2021 Departed Referred TRUDY YATES Work Phone: [facility] Start: 09-30-2021 End: 09-30-2021 Patient encounter procedure TRUDY YATES Work Phone: [facility] Start: 05-05-2019 Review Mirella [...] 07-02-2016 End: 07-02-2016 Phone Encounter Mirella [facility] Start: 07-01-2016 End: 07-01-2016 Office outpatient visit 5 minutes [facility]lla [facility] Start: 06-25-2016 End: 06-25-2016 [...] Start: 05-23-2015 End: 05-23-2015 Annotation/Addendum M[facility]lla [facility] Start: 05-23-2015 End: 05-23-2015 Office outpatient visit 5 minutes Mirella [facility] Start: 05-16-2015 End: 05-16-2015 Office outpatient visit 5 minutes Mirella [facility] Start: 05-09-2015 End: 05-09-2015 Office outpatient visit 5 minutes Mirella [facility] Start: 04-26-2015 End: 04-26-2015 Phone Encounter M[facility]lla [facility] Start: 04-19-2015 End: 04-19-2015 Office outpatient visit 40 minutes Mirella [facility] Start: 01-11-2015 End: 01-11-2015 Office outpatient visit 25 minutes Mirella [facility] Start: 10-31-2014 End: 10-31-2014 Office outpatient visit 15 minutes Mirella [facility] Start: 10-12-2014 End: 10-12-2014 Office outpatient visit 25 minutes Mirella [facility] Start: 09-11-2014 End: 09-11-2014 Phone Encounter M[facility] Start: 08-31-2014 End: 08-31-2014 Office [...] Office outpatient visit 15 minutes Mirella Mccracken [facility] Start: 04-17-2014 End: 04-17-2014 Office outpatient visit 15 minutes Mirella Mccracken [facility] Start: 04-13-2014 End: 04-13-2014 Phone Encounter [facility]lla [facility] Start: 04-06-2014 End: 04-06-2014 Patient encounter procedure Mirella [facility] Start: 04-06-2014 End: 04-06-2014 Patient encounter procedure Mirella Mccracken [facility] Start: 12-30-2013 End: 12-30-2013 Patient encounter procedure Mirella [facility] Start: 12-22-2013 End: 12-22-2013 Patient encounter procedure Mirella Mccracken [facility] Start: 12-01-2013 End: 12-01-2013 Phone Encounter Mirella [facility] Start: 12-01-2013 End: 12-01-2013 Patient encounter procedure Mirella [facility] Start: 09-23-2013 End: 09-23-2013 Patient encounter procedure Mirella [facility] Start: 09-13-2013 End: 09-13-2013 Phone Encounter M[facility]lla [facility] Start: 08-01-2013 End: 08-01-2013 Patient encounter procedure Mirella Mccracken [facility] Start: 07-04-2013 End: 07-04-2013 Patient encounter procedure Mirella Mccracken [facility] Start: 06-27-2013 End: 06-27-2013 Patient encounter procedure Mirella Mccracken [facility] Start: 06-20-2013 End: 06-20-2013 Patient encounter procedure Mirella Mccracken [facility] Start: 06-08-2013 End: 06-08-2013 Patient encounter procedure Mirella Mccracken [facility] Start: 05-20-2013 End: 05-20-2013 Patient encounter procedure Mirella Mccracken [facility] Start: 04-22-2013 End: 04-22-2013 Patient encounter procedure Mirella Mccracken [facility] Start: 04-15-2013 End: 04-15-2013 Patient encounter procedure Mirella Mccracken [facility] Start: 03-31-2013 End: 03-31-2013 Patient encounter procedure Mirella Mccracken [facility] Start: 02-28-2013 End: 02-28-2013 Patient encounter procedure Mirella Mccracken [facility] Start: 11-15-2012 End: 11-15-2012 Patient encounter procedure Mirella Mccracken [facility] Start: 10-25-2012 End: 10-25-2012 Patient encounter procedure Mirella Mccracken [facility] Start: 10-21-2012 End: 10-21-2012 Patient encounter procedure Mirella Mccracken [facility] Start: 09-30-2012 End: 09-30-2012 Patient encounter procedure Mirella Mccracken [facility] Start: 09-30-2012 End: 09-30-2012 Phone Encounter Mirellaleatha Mccracken [facility] Medicine Start: 09-16-2012 End: 09-16-2012 Patient encounter procedure Mirella Mccracken [facility] Start: 05-27-2012 End: 05-28-2012 Nursing evaluation of patient and report Mirellaleatha Searson [facility] Internal [facility] Start: 03-11-2012 End: 03-11-2012 Patient encounter procedure Mirella Mccracken [facility] Internal Medicine Start: 03-04-2012 End: 03-05-2012 Patient encounter procedure Mirellaleatha Searson [facility] Internal Medicine Start: 02-25-2012 End: 02-25-2012 Patient encounter procedure Mirella Nicole [facility] Internal Medicine Start: 02-05-2012 End: 02-05-2012 Phone Encounter Mirella [facility]re [facility] Start: 02-04-2012 End: 02-04-2012 Phone Encounter Mirella Mccracken [facility] Start: 01-30-2012 End: 01-30-2012 Patient encounter procedure Mirella Mccracken [facility] Internal Medicine Start: 01-15-2012 End: 01-15-2012 Patient encounter procedure Mirella Searson [facility] Internal Medicine Start: 12-31-2011 End: 12-31-2011 Patient encounter procedure Mirella Nicole [facility] Internal Medicine Start: 12-26-2011 End: 12-26-2011 Patient encounter procedure Mriella Mccracken [facility] Internal Medicine Start: 12-24-2011 End: 12-24-2011 Patient encounter procedure Mirellaleatha Searson [facility] Internal Medicine Start: 12-15-2011 End: 12-15-2011 Patient encounter procedure Mirellaleatha Searson [facility] Internal Medicine Start: 11-26-2011 End: 11-26-2011 Patient encounter procedure Mirella Nicole [facility] Internal Medicine Start: 11-12-2011 End: 11-12-2011 Patient encounter procedure Mirellaleatha Searson [facility] Internal Medicine Start: 11-06-2011 End: 11-06-2011 Office outpatient visit 25 minutes Mirella Mccracken [facility] Internal Medicine Start: 10-22-2011 End: 10-22-2011 Annotation/Addendum Mirella Mccracken [facility] Start: 10-21-2011 End: 10-21-2011 Office outpatient visit 25 minutes Mirella Mccracken [facility] Internal Medicine Start: 06-05-2011 End: 06-05-2011 Patient encounter procedure Mirella Nicole [facility] Internal Medicine Start: 05-08-2011 End: 05-08-2011 Patient encounter procedure Mirella Mccracken [facility] Internal Medicine Start: 05-07-2011 End: 05-07-2011 Office outpatient visit 15 minutes Mirella Mccracken [facility] Internal Medicine Start: 05-06-2011 End: 05-06-2011 Office outpatient visit 15 minutes Mirella Mccracken [facility] Internal Medicine Start: 11-06-2010 End: 11-06-2010 Office outpatient visit 15 minutes Mirella Mccracken [facility] Internal Medicine Start: 11-04-2010 End: 11-04-2010 Office outpatient visit 15 minutes Mirella Mccracken [facility] Internal Medicine Start: 10-14-2010 End: 10-14-2010 Patient encounter procedure Mirella Mccracken [facility] Internal Medicine Start: 07-17-2010 End: 07-17-2010 Patient encounter procedure Mirella Mccracken [facility] Internal Medicine Start: 06-17-2010 End: 06-17-2010 Patient encounter procedure Mirella Mccracken [facility] Internal Medicine Start: 01-25-2010 End: 01-25-2010 Patient encounter procedure Mirella Mccracken [facility] Internal Medicine Start: 12-13-2009 End: 12-13-2009 Patient encounter procedure Mirella Mccracken [facility] Internal Medicine Start: 10-03-2009 End: 10-03-2009 Office outpatient visit 10 minutes Mirella Mccracken [facility] Internal Medicine Start: 06-13-2009 End: 06-13-2009 Patient encounter procedure Mirella Mccracken [facility] Internal Medicine Start: 01-17-2009 End: 01-17-2009 Office outpatient visit 15 minutes Mirella Mccracken [facility] Internal Medicine Start: 01-12-2009 End: 01-12-2009 Office outpatient visit 25 minutes Mirella Mccracken [facility] Internal Medicine Start: 01-02-2009 End: 01-02-2009 Patient encounter procedure Mirella Mccracken [facility] Internal Medicine Start: 12-07-2008 End: 12-07-2008 Patient encounter procedure Mirella Mccracken [facility] Internal Medicine Start: 10-04-2008 End: 10-04-2008 Patient encounter procedure Mirella Mccracken [facility] Internal Medicine Start: 09-21-2008 End: 09-21-2008 Office outpatient visit 25 minutes Mirella Mccracken [facility] Internal Medicine Start: 08-24-2008 End: 08-24-2008 Patient encounter procedure Mirella Mccracken [facility] Internal Medicine Start: 06-28-2008 End: 06-28-2008 Patient encounter procedure Mirella Mccracken [facility] Internal Medicine Start: 06-28-2008 End: 06-28-2008 Patient encounter procedure Mirella Mccracken [facility] Internal Medicine Start: 06-26-2008 End: 06-26-2008 Historical Summary Mirella Mccracken [facility] Procedures Date Procedure Procedure Detail [...] 1 View (Portable) Comments: See Note; NOTES: [facility] Imaging Services [address] [place] [address] Chest 1 View (Portable) MR#: [id number] Acct: [id number] Name: AGUSTIN GARCIA Rep #: [id number] : 1940 F 79 From: Antoni Gaviria MD PCP: Mirella Mccracken DO Status: REG SDC Study: Chest 1 View (Portable) Date of Exam: 05/27/19 Exam# [id number] Ordering Dr: Satish Gonzales MD STUDY: X-RAY [...] CC: Satish Gonzales MD; Mirella Mccracken DO Shot Man: Signed Mirella Mccracken Start: 05-27-2019 End: 05-27-2019 Shoulder min 2 Views Comments: See Note; NOTES: [facility] Imaging Services [address] [place] [address] Shoulder min 2 Views MR#: [id number] Acct: [id number] Name: AGUSTIN GARCIA Rep #: [id number] : 1940 F 79 From: Antoni Gaviria MD PCP: Mirella Mccracken DO Status: REG [facility] Study: Shoulder min 2 Views Date of Exam: 05/27/19 Exam# [id number] Ordering Dr: Aury Hyde MD STUDY: X-RAY [...] CC: Aury Hyde MD; Mirella Mccracken DO Shot Man: Signed Mirella Mccracken Start: 05-27-2019 End: 05-27-2019 Operative Report Comments: See Note; NOTES: [facility] Medical Records Department [address] [place] [address] Operative Report 05/27/19 1615 MR#: [id number] Acct: [id number] Name: RADHAAGUSTIN Clara Rep #: [id number] : 1940 79 From: Uriel Francois MD PCP: Mirella Mccracken DO Status: [facility] SD Y Location: [place] [address] Report of Operation Date of Procedure: 05/27/19 [...] went into the bladder with a 21 [place] rigid cystourethroscope cannulated the left ureteral orifice [...] No VTE Mechan Device Prophylaxis: SCD's 05/27/19 7708 <Electronically signed by Uriel Francois MD> Date Uriel Francois MD CC: Uriel Francois MD; Mirella Mccracken DO Signed Mirella Mccracken Start: 05-27-2019 End: 05-27-2019 Discharge Instruction Comments: See Note; NOTES: [facility] Medical Records Department [address] [place] [address] Instructions for Home/Discharge Instructions 05/27/191613 MR#: [id number] Acct: [id number] Name: AGUSTIN GARCIA Rep #: [id number] : 1940 79 From: Uriel Francois MD PCP: Mirella Mccracken DO Status: REG [facility] Discharge Diet: Light diet - advance as [...] or 2 Views Comments: See Note; NOTES: [facility] Imaging Services [address] [place] [address] Pelvis 1 or 2 Views MR#: [id number] Acct: [id number] Name: AGUSTIN GARCIA Rep #: [id number] : 1940 F 79 From: Antoni Gaviria MD PCP: Mirella Mccracken DO Status: REG [facility] Study: Pelvis 1 or 2 Views Date of Exam: 05/27/19 Exam# [id number] Ordering Dr: Uriel Francois MD STUDY: X-RAY [...] CC: Uriel Francois MD; Mirella Mccracken DO Shot Man: Signed Mirella Mccracken Start: 05-05-2019 End: 05-05-2019 Abdomen/Pelvis WITH Contrast Comments: See Note; NOTES: [facility] Imaging Services [address] [place] [address] Abdomen/Pelvis WITH Contrast MR#: [id number] Acct: [id number] Name: AGUSTIN GARCIA Rep #: [id number] : 1940 F 79 From: Zoran Reinoso MD PCP: Mirella Mccracken DO Status: REG CLI Study: Abdomen/Pelvis WITH Contrast Date of Exam: 05/05/19 Exam# [id number] Ordering Dr: Mirella Mccracken DO STUDY: CT [...] Service support , CC: Mirella Mccracken DO Shot Man: Signed Mirella Mccracken Work Phone: Start: 03-18-2019 End: 03-18-2019 Pelvic (Non ) Comments: See Note; NOTES: [facility] Imaging Services [address] [place] [address] Pelvic (Non ) MR#: [id number] Acct: [id number] Name: AGUSTIN GARCIA Rep #: [id number] : 1940 F 78 From: Avi Fisher MD PCP: Mirella Mccracken DO Status: REG CLI Study: Pelvic (Non ) Date of Exam: 03/18/19 Exam# [id number] Ordering Dr: Mirella Mccracken DO STUDY: ULTRASOUND [...] Service support , CC: Mirella Mccracken DO Shot Man: Signed Mirella Mccracken Work Phone: Start: 03-15-2019 End: 03-15-2019 Venous Duplex Lower Extremity Comments: See Note; NOTES: [facility] Cardiovascular Services [address] [place] [address] Venous Duplex US, Unilateral 03/15/19 1340 MR#: [id number] Acct: [id number] Name: RADHAAGUSTIN Rep #: [id number] : 1940 78 From: James Moctezuma MD [...] Dictated: 03/15/19 1340 Date Transcribed: 03/15/19 142 Shot Man: Signed Mirella Mccracken Work Phone: Start: 11-17-2017 End: 11-17-2017 PT D/C Summary (1) Comments: See Note; NOTES: [facility] [address] [place], [place] [address] Fax REHABILITATION SERVICES DISCHARGE SUMMARY MR#: [id number] Acct: [id number] Name: AGUSTIN GARCIA Rep #: [id number] : 1940 77 From: Chester GILLILANDT, OCS, [...] please feel free to call me at [phone]. Thank you for the referral of this patient. Sincerely, Chester Christine, DARSHANAT, OC <Electronically signed by Chester Christine DPT, OCS, CSCS> 11/17/17 0920 CC: Mirella Mccracken DO EBG Signed Mirella Mccracken Start: 11-13-2017 End: 11-13-2017 Inital Evaluation (1) - PT Comments: See Note; NOTES: [facility] [address] [place] [address] Fax REHABILITATION SERVICES INITIAL EVALUATION MR#: [id number] Acct: [id number] Name: AGUSTIN GARCIA Rep #: [id number] : 1940 77 From: Chester Christine DPT, OCS, CSCS Referring Dr.: Mirella Mccracken DO Status: REG RCR Insurance: MEDICARE PART A B [facility] Patient's Visit Information AGUSTIN GARCIA [...] to be FAXED BACK to us at [phone] for Medicare purposes. Please let me know [...] Min 2 Views Comments: See Note; NOTES: [facility] Imaging Services [address] [place] [address] Femur Min 2 Views MR#: [id number] Acct: [id number] Name: AGUSTIN GARCIA Rep #: [id number] : 1940 F 77 From: Edward Jha MD PCP: Mirella Mccracken DO Status: REG CLI Study: Femur Min 2 Views Date of Exam: 10/15/17 Exam# [id number] Ordering Dr: Mirella Mccracken DO STUDY: X-RAY [...] Edward Jha MD at 15:48 EST Tel [phone], Service support , CC: Mirella Mccracken DO Shot Man: Signed Mirella Mccracken Work Phone: Start: 10-15-2017 End: 10-15-2017 Hip 2-3 Views with Pelvis Comments: See Note; NOTES: [facility] Imaging Services [address] [place] [address] Hip 2-3 Views with Pelvis MR#: [id number] Acct: [id number] Name: AGUSTIN GARCIA Rep #: [id number] : 1940 F 77 From: Edward Jha MD PCP: Mirella Mccracken DO Status: REG CLI Study: Hip 2-3 Views with Pelvis Date of Exam: 10/15/17 Exam# [id number] Ordering Dr: Mirella Mccracken DO STUDY: X-RAY [...] Edward Jha MD at 15:54 EST Tel [phone], Service support , STUDY: X-RAY - PELVIS [...] Edward Jha MD at 15:55 EST Tel [phone], Service support , CC: Mirella Mccracken DO Shot Man: Signed Mirella Mccracken Work Phone: Start: 06-05-2017 End: 06-05-2017 Follow Up Appt 6 months Jose Vargas MD Start: 06-05-2017 End: 06-05-2017 [facility] Jose Vargas MD Start: 03-26-2017 End: 03-26-2017 Ribs Uni Min 3V w/PA Chest Comments: See Note; NOTES: [facility] Imaging Services [address] [place] [address] Verdana 4d Ribs Uni Min 3V w/PA Chest MR#: [id number] Acct: [id number] Name: AGUSTIN GARCIA Rep #: [id number] : 1940 F 76 From: Tomas Pat MD PCP: Mirella Mccracken DO Status: REG CLI Study: Ribs Uni Min 3V w/PA Chest Date of Exam: 03/26/17 Exam# [id number] Ordering Dr: Stephenie Burkett MD STUDY: X-RAY [...] CC: Stephenie Burkett MD; Mirella Mccracken DO Shot Man: Signed Stephenie Burkett Work Phone: Start: 11-13-2016 End: 11-13-2016 Kidney and Bladder Comments: See Note; NOTES: [facility] Imaging Services [address] [place] [address] Verdana 4d Kidney and Bladder MR#: [id number] Acct: [id number] Name: RADHAAGUSTIN M Rep #: [id number] : 1940 F 76 From: Mackenzie Ortega MD PCP: Mirella Mccracken DO Status: [facility] CLI Study: Kidney and Bladder Date of Exam: 11/13/16 Exam# [id number] Ordering Dr: Uriel Francois MD STUDY: RENAL [...] MD at 16:03 EST , Service support [phone], CC: Uriel Francois MD; Mirella Mccracken DO Shot Man: Signed Mirella Mccracken Start: 11-03-2016 End: 11-03-2016 Follow Up Appt 9 months Zaria Trevino PA-C Work Phone: Start: 11-03-2016 End: 11-03-2016 PF Zaria Trevino PA-C Work Phone: Start: 07-07-2016 End: 07-07-2016 Breast Limited Unilateral Comments: See Note; NOTES: [facility] Imaging Services [address] [place] [address] Verdana 4d Breast Limited Unilateral MR#: [id number] Acct: [id number] Name: AGUSTIN GARCIA Rep #: [id number] : 1940 F 76 From: Edward Jha MD PCP: Mirella Mccracken DO Status: REG CLI Study: Breast Limited Unilateral Date of Exam: 07/07/16 Exam# [id number] Ordering Dr: Mirella Mccracken DO STUDY: ULTRASOUND [...] Edward Jha MD at 15:23 EDT Tel [phone], Service support [phone], CC: Mirella Mccracken DO Shot Man: Signed Mirella Mccracken Work Phone: Start: 07-07-2016 End: 07-07-2016 Unilat Rt Diag Digital AND CAD Comments: See Note; NOTES: [facility] Imaging Services [address] [place] [address] Verdana 4d Unilat Rt Diag Digital AND CAD MR#: [id number] Acct: [id number] Name: AGUSTIN GARCIA Rep #: [id number] : 1940 F 76 From: Edward Jha MD PCP: Mirella Mccracken DO Status: REG CLI Study: Unilat Rt Diag Digital AND CAD Date of Exam: 07/07/16 Exam# [id number] Ordering Dr: Mirella Mccracken DO MAMMOGRAPHY - [...] Edward Jha MD at 15:21 EDT Tel [phone], Service support [phone], CC: Mirella Mccracken DO Shot Man: Signed Mirella Mccracken Work Phone: Start: 05-21-2016 End: 05-22-2016 Foot min 3 Views Comments: See Note; NOTES: [facility] Imaging Services [address] [place] [address] Verda 4d Foot min 3 Views MR#: [id number] Acct: [id number] Name: AGUSTIN GARCIA Rep #: [id number] : 1940 F 76 From: Edward Jha MD PCP: Mirella Mccracken DO Status: REG CLI Study: Foot min 3 Views Date of Exam: 05/21/16 Exam# [id number] Ordering Dr: Mirella Mccracken DO STUDY: X-RAY [...] Edward Jha MD at 9:42 EDT Tel [phone], Service support [phone], CC: Mirella Mccracken DO Shot Man: Signed Mirella Mccracken Work Phone: Start: 05-07-2016 End: 05-07-2016 Follow Up Appt 6 months Jose Vargas MD Start: 05-07-2016 End: 05-07-2016 [facility] Jose Vargas MD Start: 01-04-2016 End: 01-04-2016 Ecg routine ecg w/least 12 lds w/i&r [MEASUREMENTS ANALYSIS] Date of Test: 01/04/2016 10:09:41; Heart Rate: 59; PA Interval: 158; QRS: 88; QT Interval: 432; Corrected QT Interval (QTc): 431; P Wave [place]: 32; QRS [place]: 10; T [place]: 47; Blood Pressure: 110/64 [ECG DIAGNOSTIC STATEMENTS] Date of Test: 01/04/2016 10:09:41; Summary: Sinus Bradycardia WITHIN NORMAL LIMITS Mirella Mccracken Work Phone: Comment on above: sinus elin no acute chg Start: 11-29-2015 End: 11-29-2015 Carotid Duplex Ultrasound Comments: See Note; NOTES: [facility] Cardiovascular Services [address] [place] [address] Carotid Duplex Ultrasound 11/20/15 1035 MR#: [id number] Acct: [id number] Name: AGUSTIN GARCIA Rep #: [id number] : 1940 75 From: Miko Cutler MD [...] the left vertebral artery. Procedure Carotid Duplex 99432. The exam was diagnostic. Exam performed in department. Interpretation Summary Mild (<50%) stenosis right extracranial internal carotid. Mild (<50%) stenosis left extracranial internal carotid. Flow within the vertebral arteries is antegrade bilaterally. Ordering Physician: Zaria Bustamante Referring Physician: Mirella Mccracken M.D. Performed By: Dilshad Russo RVT 11/29/15 1556 Date Miko Cutler MD CC: Mirella Bustamante Date Dictated: 11/20/15 1035 Date Transcribed: 11/29/15 1556 Shot Man: Signed Mirella Mccracken Start: 11-13-2015 End: 11-13-2015 Bilat Scrn Digital AND CAD Comments: See Note; NOTES: [facility] Imaging Services [address] [place] [address] Verdana 4d Bilat Scrn Digital AND CAD MR#: [id number] Acct: [id number] Name: AGUSTIN GARCIA Rep #: [id number] : 1940 F 75 From: Edward Jha MD PCP: Mirella Mccracken DO Status: REG CLI Study: Bilat Scrn Digital AND CAD Date of Exam: 11/13/15 Exam# [id number] Ordering Dr: Mirella Mccracken DO MAMMOGRAPHY - [...] delay biopsy of a clinically suspicious abnormality. [id number] Electronically Signed: Edward Jha MD at 14:46 EST Tel [phone], Service support [phone], CC: Mirella Mccracken DO Shot Man: Signed Mirella Mccracken Work Phone: Start: 11-05-2015 [...] Cervical without Contras Comments: See Note; NOTES: [facility] Imaging Services [address] [place] [address] CAT Scan Report MR#: [id number] Acct: [id number] Name: AGUSTIN GARCIA Rep #: [id number] : 1940 F 75 From: Otoniel Tam MD PCP: Mirella Mccracken DO Status: REG CLI Study: Spine Cervical without Contras Date of Exam: 06/07/15 Exam# [id number] Ordering Dr: Louis Tsang STUDY: CT CERVICAL [...] MD at 16:59 EDT , Service support [phone], CC: Mirella Mccracken DO; [place] TSANG Shot Man: Signed Mirella Mccracken Start: 05-22-2015 End: 05-23-2015 Spine Lumbar without Contrast Comments: See Note; NOTES: [facility] Imaging Services [address] [place] [address] CAT Scan Report MR#: [id number] Acct: [id number] Name: AGUSTIN GARCIA Rep #: [id number] : 1940 F 75 From: Ruddy Pozo MD PCP: Mirella Mccracken DO Status: REG CLI Study: Spine Lumbar without Contrast Date of Exam: 05/22/15 Exam# [id number] Ordering Dr: Louis Tsang STUDY: CT LUMBAR [...] at 10:05 EDT Tel , Service support [phone], CC: Mirella Mccracken DO; [place] TSANG Shot Man: Signed Mirella Mccracken Start: 05-09-2015 End: 05-10-2015 Documentation of current medications Jose Vargas MD Start: 05-09-2015 End: 05-09-2015 Follow Up Appt 6 months Jose Vargas MD Start: 05-09-2015 End: 10-23-2016 Follow Up Appt Other Jose Vargas MD Start: 05-09-2015 End: 05-09-2015 MM Jose Vargas MD Start: 04-26-2015 End: 04-26-2015 Brain/Head W/WO Contrast Comments: See Note; NOTES: [facility] Imaging Services [place] [address] CAT Scan Report MR#: [id number] Acct: [id number] Name: AGUSTIN GARCIA Rep #: [id number] : 1940 F 74 From: Edward Jha MD PCP: Mirella Mccracken DO Status: REG CLI Study: Brain/Head W/WO Contrast Date of Exam: 04/26/15 Exam# [id number] Ordering Dr: Mirella Mccracken DO STUDY: CT [...] Edward Jha MD at 12:51 EDT Tel [phone], Service support [phone], CC: Mirella Mccracken DO Shot Man: Signed Mirella Mccracken Work Phone: Start: 10-24-2014 End: 10-24-2014 Breast Complete Unilateral Comments: See Note; NOTES: [facility] Imaging Services [address] [place] [address] Ultrasound Report MR#: [id number] Acct: [id number] Name: AGUSTIN GARCIA Rep #: [id number] : 1940 F 74 From: Edward Jha MD PCP: Mirella Mccracken DO Status: REG CLI Study: Breast Complete Unilateral Date of Exam: 10/24/14 Exam# [id number] Ordering Dr: Mirella Mccracken DO STUDY: ULTRASOUND [...] Edward Jha MD at 11:15 EST Tel [phone], Service support [phone], CC: Mirella Mccracken DO Shot Man: Signed Mirella Mccracken Work Phone: Start: 10-24-2014 End: 10-25-2014 Dexa Bone Density Study (HP) Comments: See Note; NOTES: [facility] Imaging Services [address] [place] [address] Bone Density Report MR#: [id number] Acct: [id number] Name: AGUSTIN GARCIA Rep #: [id number] : 1940 F 74 From: Edward Jha MD PCP: Mirella Mccracken DO Status: [facility] CLI Study: Dexa Bone Density Study (HP) Date of Exam: 10/24/14 Exam# [id number] Ordering Dr: Mirella Mccracken DO STUDY: DUAL [...] Edward Jha MD at 10:14 EST Tel [phone], Service support [phone], CC: Mirella Mccracken DO Shot Man: Signed Mirella Mccracken Work Phone: Start: 10-19-2014 End: 10-20-2014 Bilat Scrn Digital AND CAD Comments: See Note; NOTES: [facility] Imaging Services [address] [place] [address] Breast Imaging Report MR#: [id number] Acct: [id number] Name: AGUSTIN GARCIA Rep #: [id number] : 1940 F 74 From: Edward Jha MD PCP: Mirella Mccracken DO Status: REG CLI Study: Bilat Scrn Digital AND CAD Date of Exam: 10/19/14 Exam# [id number] Ordering Dr: Mirella Mccracken DO MAMMOGRAPHY - [...] Edward Jha MD at 13:38 EST Tel [phone], Service support [phone], CC: Mirella Mccracken DO Shot Man: Signed Mirella Mccracken Work Phone: Start: 10-10-2014 [...] Brain/Head W/WO Contrast Comments: See Note; NOTES: [facility] Imaging Services [address] [place] [address] CAT Scan Report MR#: [id number] Acct: [id number] Name: AGUSTIN GARCIA Rep #: [id number] : 1940 F 74 From: Audie Hugo MD PCP: Mirella Mccracken DO Status: REG CLI Study: Brain/Head W/WO Contrast Date of Exam: 09/08/14 Exam# [id number] Ordering Dr: Mirella Mccracken DO STUDY: CT [...] To Hugo MD at 8:17 EST Tel [phone], Service support [phone], CC: Mirella Mccracken DO Shot Man: Signed Mirella Mccracken Work Phone: Start: 07-27-2014 End: 07-27-2014 History and Physical Exam Comments: See Note; NOTES: [facility] Medical Records Department [address] [place] [address] History and Physical 07/27/14 0753 MR#: [id number] Acct: [id number] Name: AGUSTIN GARCIA Rep #: [id number] : 1940 74 From: Nella Howard PCP: Mirella Mccracken DO Status: PRE [facility] Location: [facility] DATE OF SERVICE: 07/28/2014 PREOPERATIVE DIAGNOSIS: Painful [...] scheduled to undergo outpatient surgical intervention at [facility] on July 28, 2014. Pedal pulses are easily palpable bilaterally and consent was reviewed, signed and placed in chart. Nella Howard DPM T: NTS JOB: [id number] 07/27/14 1156 <Electronically signed by Nella Howard > Date: Time: Nella Howard CC: Mirella Mccracken DO; Nella Howard DPM Date Dictated: 07/27/14752 Date Transcribed: 07/27/14752 Shot Man: Signed ____ I have re-examined the patient. [...] Chest W/WO Contrast Comments: See Note; NOTES: [facility] Imaging Services [address] [place] [address] CAT Scan Report MR#: [id number] Acct: [id number] Name: AGUSTIN GARCIA Rep #: [id number] : 1940 F 73 From: Edward Jha MD PCP: Status: REG CLI Study: CTA Chest W/WO Contrast Date of Exam: 12/22/13 Exam# [id number] Ordering Dr: Mirella Mccracken DO STUDY: CTA [...] at 13:14 EDT Tel , Service support [phone], CC: Mirella Mccracken DO Shot Man: Signed Mirella Mccracken Work Phone: Start: 12-13-2013 [...] Brain/Head w/wo Contrast Comments: See Note; NOTES: [facility] Imaging Services [address] [place] [address] CAT Scan Report MR#: [id number] Acct: [id number] Name: AGUSTIN GARCIA Rep #: [id number] : [id number] From: Audie Hugo MD PCP: Status: REG CLI Study: Brain/Head w/wo Contrast Date of Exam: 06/20/13 Exam# [id number] Ordering Dr: Stephenie Burkett MD STUDY: CT [...] June 20, 2013 at 3:17:31 PM EDT [phone] Electronically Signed BW/BW If you are the referring physician and would like to consult with the radiologist who provided this interpretation, please contact To Hugo M.D. at [phone]. If this radiologist is unavailable, you will be directed to another radiologist to assist. If you are a patient with a question regarding this report, please contact your referring physician directly. Professional Interpretation Provided By: [employer], Phone , These documents contain legally protected [...] of these documents. CC: Stephenie Burkett MD Shot Man: Signed Stephenie Burkett Work Phone: Start: 05-04-2013 [...] Dixon Comment on above: 2007 Colonoscopy Alyson Messenger Comment on above: 2007 Colonoscopy Alyson Messenger Comment on above: 2007 History of coronary artery bypass grafting Aortocoronary bypass status TRUDY YATES Work Phone: Comment on above: CABG, GALLARDO to LAD, 2 RVSV one to 1st bra nch of obtuse marginal & the other to PDA November 2011 Kidney Problems Alyson richetr Comment on above: with surgery [id number] Kidney Problems Alyson richter Comment on above: with surgery [id number] Kidney Problems Alyson richter Comment on above: with surgery [id number] Ligation of fallopia n tube Alyson Dixon [...] Date Care Activity Detail Author Start: 06-28-2025 [facility] Start: 05-05-2019 Basic metabolic panel calcium total Metabolic Panel, Basic (11398) [facility] Work Phone: Start: 01-21-2018 Provider Instructions for Treatment [facility] Work Phone: Start: 11-24-2017 End: 11-24-2017 Appointment Appointment [facility] Work Phone: Start: 11-09-2017 Provider Instructions for Treatment Hip Bursa [facility] Work Phone: Start: 10-15-2017 Provider Instructions for Treatment Hip Bursa-L [facility] Work Phone: Start: 09-18-2017 Provider Instructions for Treatment [facility] Work Phone: Start: 06-05-2017 End: 06-05-2017 Follow Up Appt 6 months Follow Up Appt 6 months [facility] Work Phone: Start: 06-05-2017 End: 06-05-2017 MMM MMM [facility] Work Phone: Start: 05-07-2017 Provider Instructions for Treatment [facility] Work Phone: Start: 05-07-2017 Urnls dip stick/tablet reagent auto microscopy URINALYSIS, W/ MICRO (67583) [facility] Work Phone: Start: 05-07-2017 Urine albumin quantitative MICROALBUMIN: CREATININE RATIO (23207) AND (69553) [facility] Work Phone: Start: 12-25-2016 [...] Phone: Start: 07-02-2016 Lipid panel Lipid Panel (77494) [facility] Work Phone: Start: 06-25-2016 Provider Instructions for Treatment [facility] Work Phone: Start: 05-12-2016 End: 05-11-2015 *Hepatic Function Panel *Hepatic Function Panel [facility] Work Phone: Start: 05-12-2016 End: 05-11-2015 Lipid panel [AGGREGATE] *Lipid Profile CC PCP [facility] Work Phone: Start: 05-07-2016 End: [...] 6 months Follow Up Appt 6 months [facility] Work Phone: Start: 11-05-2015 End: 11-05-2015 Follow Up Appt Other Follow Up Appt Other [facility] Work Phone: Start: 11-05-2015 End: 11-05-2015 PFM PFM [facility] Work Phone: Start: 10-24-2015 Provider Instructions for Treatment [facility] Work Phone: Start: 10-24-2015 Blood occult fecal hgb deter ia qual feces 1-3 FECAL OCCULT- Tubes sent home (89382) [facility] Work Phone: Start: 07-26-2015 Patient Education Anxiety: emotional health [facility] Work Phone: Start: 07-26-2015 Provider Instructions for Treatment [facility] Work Phone: Start: 07-26-2015 25 hydroxy includes fractions if performed CALCIFIDIOL (33089) VIT D 25 [facility] Work Phone: Start: 07-26-2015 Urnls dip stick/tablet reagent auto microscopy URINALYSIS, W/ MICRO (30722) [facility] Work Phone: Start: 07-26-2015 Urine albumin quantitative MICROALBUMIN: CREATININE RATIO (56457) AND (94926) [facility] Work Phone: Start: 07-26-2015 Comprehensive metabolic panel METABOLIC PANEL, COMPREHENSIVE (24176) [facility] Work Phone: Start: 07-26-2015 Blood count complete auto&auto difrntl wbc CBC W/AUTO DIFF WBC (15035) [facility] Work Phone: Start: 07-26-2015 Thyrotropin Qn TSH (90915) [facility] Work Phone: Start: 07-26-2015 Lipid panel LIPID PANEL (48989) [facility] Work Phone: Start: 05-09-2015 End: 05-09-2015 Follow Up Appt 6 months Follow Up Appt 6 months [facility] Work Phone: Start: 05-09-2015 End: 10-23-2016 Follow Up Appt Other Follow Up Appt Other [facility] Work Phone: Start: 05-09-2015 End: 05-09-2015 MMM MMM [facility] Work Phone: Start: 04-26-2015 Culture bct isol&prsmptv id isolate ea urine URINE IBRAHIMA CULTURE-IDENTIFICATN (72703) [facility] Work Phone: Start: 04-19-2015 Procedure Education Eprescribed prescriptions (G0325) [facility] Work Phone: Start: 04-19-2015 Provider Instructions for Treatment [facility] Work Phone: Start: 04-19-2015 Cobalamin (Vitamin B12) mass conc VITAMIN B-12 (CYANOCOBALAMIN) (40473) [facility] Work Phone: Start: 04-19-2015 Urnls dip stick/tablet rgnt auto w/o microscopy URINALYSIS W/O MICRO (46341) [facility] Work Phone: Start: 04-19-2015 Thyrotropin Qn TSH (70289) [facility] Work Phone: Start: 04-19-2015 Urine albumin quantitative MICROALBUMIN: CREATININE RATIO (25157) AND (11388) [facility] Work Phone: Start: 04-19-2015 Comprehensive metabolic panel METABOLIC PANEL, COMPREHENSIVE (44868) [facility] Work Phone: Start: 04-19-2015 Blood count complete auto&auto difrntl wbc CBC W/AUTO DIFF WBC (02253) [facility] Work Phone: Start: 04-19-2015 Lipid panel LIPID PANEL (01175) [facility] Work Phone: Start: 04-19-2015 25 hydroxy includes fractions if performed CALCIFIDIOL (19963) VIT D 25 [facility] Work Phone: Start: 01-11-2015 Provider Instructions for Treatment [facility] Work Phone: Start: 01-11-2015 25 hydroxy includes fractions if performed Vitamin D Hydroxy (32892) [facility] Work Phone: Start: 01-11-2015 Lipid panel LIPID PANEL (99263) [facility] Work Phone: Start: 01-11-2015 Thyrotropin Qn TSH (30219) [facility] Work Phone: Start: 01-11-2015 Urnls dip stick/tablet reagent auto microscopy URINALYSIS, W/ MICRO (30894) [facility] Work Phone: Start: 01-11-2015 Urine albumin quantitative MICROALBUMIN: CREATININE RATIO (27768) AND (56842) [facility] Work Phone: Start: 01-11-2015 Comprehensive metabolic panel METABOLIC PANEL, COMPREHENSIVE (20271) [facility] Work Phone: Start: 01-11-2015 Blood count complete auto&auto difrntl wbc CBC W/AUTO DIFF WBC (49341) [facility] Work Phone: Start: 10-31-2014 Provider Instructions for Treatment *Calcium Education (KF) [facility] Work Phone: Start: 10-12-2014 Provider Instructions for Treatment [facility] Work Phone: Start: 10-10-2014 End: 10-10-2014 Electrocardiogram, complete EKG (In office) [facility] Work Phone: Start: 10-10-2014 End: 10-10-2014 Follow Up Appt 6 months Follow Up Appt 6 months [facility] Work Phone: Start: 10-10-2014 End: 10-23-2016 Follow Up Appt Other Follow Up Appt Other [facility] Work Phone: Start: 10-10-2014 End: 10-10-2014 PFM PFM [facility] Work Phone: Start: 10-09-2014 25 hydroxy includes fractions if performed Vitamin D Hydroxy (78982) [facility] Work Phone: Start: 08-31-2014 [...] (PT) Coag time (PPP) PT (Prothrobim Time) (89290) [facility] Work Phone: Comment on [...] difrntl wbc CBC, PLATELETS & AUT DIFF (46797) [facility] Work Phone: Start: 06-20-2013 CRP mass conc C-Reactive Protein (80627) [facility] Work Phone: Start: 06-20-2013 Sedimentation rate rbc non-automated Sed Rate Erythrocyte (70949) [facility] Work Phone: Start: 06-20-2013 Creatinine mass conc CREATININE BLOOD (66795) [facility] Work Phone: Start: 06-08-2013 [...] Differential panel - Blood *CBC without Diff [facility] Work Phone: Start: 04-19-2013 End: [...] W/Grafts Left & Right Heart Cath W/Grafts [facility] Work Phone: Start: 04-15-2013 Patient Education Water in diet, brief version [facility] Work Phone: Start: 04-15-2013 Provider Instructions for Treatment [facility] Work Phone: Start: 03-15-2013 End: 03-09-2013 Echocardiography Echocardiogram (complete) [facility] Work Phone: Start: 02-28-2013 Provider Instructions for Treatment [facility] Work Phone: Start: 02-10-2013 End: 02-10-2013 Arterial exam Arterial exam [facility] Work Phone: Start: 02-10-2013 End: 02-10-2013 Electrocardiogram, complete EKG (In office) [facility] Work Phone: Start: 02-10-2013 End: 02-10-2013 Flecainide [Mass/volume] in Serum or Plasma *FLEC Flecainide (Tambocor) 86[address] [facility] Work Phone: Start: 02-10-2013 End: 02-10-2013 Follow Up Appt 6 months Follow Up Appt 6 months [facility] Work Phone: Start: 02-10-2013 End: 08-08-2013 Lipid panel [AGGREGATE] *Lipid Profile CC PCP [facility] Work Phone: Start: 02-10-2013 End: [...] urine URINE IBRAHIMA CULTURE (TY COL COUNT) (16872) [facility] Work Phone: Start: 09-16-2012 Provider Instructions for Treatment Follow up in 1 month [facility] Work Phone: Start: 07-08-2012 End: 04-18-2013 *Hepatic Function Panel *Hepatic Function Panel [facility] Work Phone: Start: 07-08-2012 End: 07-09-2012 Electrocardiogram, complete EKG (In office) [facility] Work Phone: Start: 07-08-2012 End: 07-09-2012 Follow Up Appt 6 months Follow Up Appt 6 months [facility] Work Phone: Start: 07-08-2012 End: 04-18-2013 Lipid panel [AGGREGATE] *Lipid Profile [facility] Work Phone: Start: 04-12-2012 End: 04-12-2012 Follow Up Appt 3 months Follow Up Appt 3 months [facility] Work Phone: Start: 03-05-2012 Provider Instructions for [...] 3 months Follow Up Appt 3 months [facility] Work Phone: Start: 01-06-2012 End: 01-06-2012 Follow Up Appt Other Follow Up Appt Other [facility] Work Phone: Start: 01-06-2012 End: 04-18-2013 Lipid panel [AGGREGATE] *Lipid Profile [facility] Work Phone: Start: 12-31-2011 Provider Instructions for Treatment [facility] Work Phone: Start: 12-24-2011 Fibrin dgradj products d-dimer quantitative D-Dimer (52777) [facility] Work Phone: Start: 12-24-2011 Blood count complete automated CBC (AUTO) (42712) [facility] Work Phone: Start: 12-03-2011 Culture bacterial quanttative colony count urine URINE IBRAHIMA CULTURE-TY COL COUNT (95288) [facility] Work Phone: Start: 11-26-2011 Provider Instructions for Treatment [facility] Work Phone: Start: 11-06-2011 Provider Instructions for Treatment Reviewed Diagnostic Tests [facility] Work Phone: Start: 11-04-2011 Renal function panel Renal function Panel (52607) [facility] Work Phone: Start: 10-22-2011 CRP mass conc C-Reactive Protein (63772) [facility] Work Phone: Start: 10-21-2011 Renal function panel Renal function Panel (38934) [facility] Work Phone: Start: 10-21-2011 Provider Instructions for Treatment Follow up in 2 weeks [facility] Work Phone: Start: 10-21-2011 Fibrin dgradj products d-dimer quantitative D-Dimer (00928) [facility] Work Phone: Start: 10-21-2011 Troponin I.cardiac mass conc Troponin I (74439) [facility] Work Phone: Start: 10-21-2011 Creatine kinase mb fraction only CPK MB FRACTION (99576) [facility] Work Phone: Start: 10-21-2011 Creatine kinase total CREATINE KINASE TOTAL (82796) [facility] Work Phone: Start: 10-21-2011 CRP mass conc C-Reactive Protein (72779) [facility] Work Phone: Start: 06-17-2010 Provider Instructions for Treatment [facility] Work Phone: Start: 12-13-2009 Provider Instructions for Treatment [facility] Work Phone: Start: 01-17-2009 Provider Instructions for Treatment [facility] Work Phone: Start: 01-12-2009 Provider Instructions for Treatment *ERGOCALCIFEROL DOSAGE PER SHEWMON [facility] Work Phone: Start: 01-12-2009 Nuclear Ab IF titer (S) CORTES (ANTINUCLEAR ANTIBODY) (22759) [facility] Work Phone: Start: 01-12-2009 Rheumatoid factor quantitative RHEUMATOID FACTOR-QUANT (71848) [facility] Work Phone: Start: 01-12-2009 25 hydroxy includes fractions if performed Vitamin D Hydroxy (90355) [facility] Work Phone: Comment on above: do in 3-4 months Start: 01-02-2009 Provider Instructions for Treatment [facility] Work Phone: Start: 01-02-2009 25 hydroxy includes fractions if performed Vitamin D Hydroxy (42097) [facility] Work Phone: Start: 01-02-2009 1 25 dihydroxy includes fractions if performed VITAMIN D, 1, 25-DIHYDROXY (92022) [facility] Work Phone: Start: 01-02-2009 Thyrotropin Qn TSH (31065) [facility] Work Phone: Start: 01-02-2009 Protein electrophoretic fractj&quantj serum [facility] Work Phone: Start: 01-02-2009 Sedimentation rate rbc non-automated SED RATE ERYTHROCYTE (24701) [facility] Work Phone: Start: 01-02-2009 Phosphate mass conc PHOSPHORUS (10308) [facility] Work Phone: Start: 01-02-2009 Assay of parathormone PARATHORMONE (41179) [facility] Work Phone: Start: 01-02-2009 Hepatic function panel HEPATIC FUNCTION PANEL (99246) [facility] Work Phone: Start: 01-02-2009 Blood count complete automated CBC (AUTO) (05716) [facility] Work Phone: Start: 01-02-2009 Calcium mass conc CALCIUM SERUM (60498) [facility] Work Phone: Start: 01-02-2009 CRP mass conc C-REACTIVE PROTEIN (08262) [facility] Work Phone: Start: 01-02-2009 ALP enzyme act/vol ALKALINE PHOSPHATASE (60911) [facility] Work Phone: Start: 10-04-2008 Provider Instructions for Treatment [facility] Work Phone: Start: 10-04-2008 Lipid panel LIPID PANEL (96526) [facility] Work Phone: Start: 09-21-2008 Patient Education Water in diet, brief version [facility] Work Phone: Start: 09-21-2008 Provider Instructions for Treatment [facility] Work Phone: Start: 08-24-2008 Provider Instructions for Treatment [facility] Work Phone: Start: 06-28-2008 Provider Instructions for Treatment [facility] Work Phone: Patient Education [facility] Work Phone: [facility] [...] Immunizations Immunization Date Immunization Notes Care Provider [facility] 06-13-2009 influenza, seasonal, injectable Mirella Nicole [facility] Work Phone: Comment on above: Lot #[id number]-left deltoidgiven by:[facility] 06-28-2008 influenza, seasonal, injectable Mirella [facility] Work Phone: Comment on above: done km 0.5cc given im ;lt arm lot [id number] exp 02-20 Payers Date Payer Category Payer Self-pay [id number] 2024 Unknown [id number] 2024 Unknown [id number] 2016 Unknown [id number] 2004 Medicare [id number] Medicare MEDICARE PART A B [id number] Private Health Insurance [id number] Unknown Unknown [id number] 2.840.1.617844.3.579.2.462 Unknown [id number] 2.16.840.1.583344.3.579.2.462 Unknown [id number] 2.16.840.1.740342.3.579.2.462 Unknown [id number] 2.16.840.1.805521.3.579.2.462 Unknown [id number] 2.16.840.1.902098.3.579.2.462 Unknown [id number] 2.16.840.1.512634.3.579.2.462 Unknown [id number] 2.16.840.1.209653.3.579.2.462 Unknown [id number] 2.16.840.1.623242.3.579.2.462 Unknown [id number] 2.16.840.1.339444.3.579.2.462 Unknown [id number] 2..840.1.772094.3.579.2.462 Unknown [id number] 2.840.1.720200.3.579.2.462 Unknown [id number] 2.840.1.227903.3.579.2.462 Unknown [id number] .840.1.155689.3.579.2.462 Unknown [id number] 2.840.1.529338.3.579.2.462 Unknown [id number] 2.840.1.431283.3.579.2.462 Unknown [id number] 2.840.1.211394.3.579.2.462 Unknown [id number] .840.1.755092.3.579.2.462 Unknown [id number] .840.1.436303.3.579.2.462 Unknown [id number] 2.840.1.122527.3.579.2.462 Unknown [id number] 2.840.1.043295.3.579.2.462 Unknown [id number] .840.1.609873.3.579.2.462 Unknown [id number] .840.1.508313.3.579.2.462 Unknown [id number] 2.840.1.999425.3.579.2.462 Unknown [id number] 2.840.1.522754.3.579.2.462 Unknown [id number] 2.840.1.243048.3.579.2.462 Unknown [id number] 2.16.840.1.435940.3.579.2.462 Unknown [id number] 2.16.840.1.518274.3.579.2.462 Unknown [id number] 2.16.840.1.920178.3.579.2.462 Unknown [id number] 2.16.840.1.875196.3.579.2.462 Unknown [id number] 2.16.840.1.652479.3.579.2.462 Unknown [id number] 2.16.840.1.352465.3.579.2.462 Unknown [id number] 2.16.840.1.433828.3.579.2.462 Unknown [id number] 2.16.840.1.483818.3.579.2.462 Unknown [id number] 2.16.840.1.049600.3.579.2.462 Unknown [id number] 2.16.840.1.693001.3.579.2.462 Unknown [id number] 2.16.840.1.597161.3.579.2.462 Unknown [id number] 2.16.840.1.768955.3.579.2.462 Unknown [id number] 2.16.840.1.857596.3.579.2.462 Social History Date Type Detail Facility Caffeine Use Never smoker [facility] Work Phone: Comment on above: 2 per week 3-4 miles QD walking , heterosexua l, celibate Retired Tobacco use: Never smoker. [facility] Work Phone: Start: 09-30-2021 End: 07-09-2023 Tobacco smoking status NVIS Unknown if ever smoked [facility] Start: 06-12-2021 None [facility] Start: 06-12-2021 Homeless [facility] Start: 06-12-2021 Non-smoker [facility] Start: 1940 Sex Assigned At Female [facility] Start: 02-07-2024 End: 06-28-2025 Tobacco smoking status NHIS Never smoked tobacco (finding) [facility] Start: 12-14-2024 End: 01-04-2025 Sex Female (finding) [facility] Sex Female [facility] Medical Equipment Procedure Code Equipment Code [...] Assessment Result Facility 06-28-2025 Cognitive function Voice/Name [facility] Work Phone: Discharge summary 06-28-2025 Note Date & Type Note Facility 06-28-2025 Discharge summary [facility] Discharge summary 06-28-2025 Note Date & Type Note Facility 06-28-2025 Discharge summary Note Date/Time June 28, 2025 10:17pm [facility] Medical Records Department [address] [place] [address] Emergency Department Summary 06/28/25 MR#: [id number] Acct: [id number] Name: AGUSTIN GARCIA Rep #:[id number] : 1940 85 From: Aric Oneil MD PCP: Dr. Yesika Faust MD Status:R EG ER Location: ED HPI History of Present Illness Chief Complaint: Confusion Narrative Narrative: 85-year-old female past medical [facility]. Patient denies [...] mg intravenously [facility] I do not feel that she [...] % (Auto) 53.8 Lymph % (Auto) 30.5 [place] % (Auto) 10.3 H Eos % (Auto) [...] Clarity Clear Urine pH 6.5 Ur Specific [place] 1.015 Urine Protein 15 H Urine Glucose [...] - As soon as possible Print Language: Peruvian Disposition Disposition: Home, Self Care What to do if you have Problems For any increased pain, shortness of breath, bleeding, nausea or vomiting, chestpain, or any unexpected problems, contact your Primary Care Provider. Call [facility] ([phone]) or report to the closest Emergency Room. Call 911 if necessary. 06/28/252216 <Electronically signed by Aric Oneil MD> Cosigner Signature (if applicable): CC: Dr. Yesika Faust MD ~ Signed [facility] Work Phone: Evaluation note Note Date & Type Note Facility Evaluation note No assessment information availa ble [facility] Work Phone: Evaluation note Note Date & Type Note Facility Evaluation note Diagnosis Onset Date Pes anserinus bursitis of left knee noneactive Osteoarthritis of left knee noneactive [facility] Work Phone: Evaluation note Note Date & Type Note Facility Evaluation note Diagnosis Onset Date Pes anserinus bursitis of left knee noneactive Osteoarthritis of left knee noneactive Pes anserinus bursitis of left knee noneactive Osteoarthritis of left knee noneactive [facility] Work Phone: Evaluation note Note Date & Type Note Facility Evaluation note Diagnosis Onset Date Osteoarthritis of left knee noneactive Osteoarthritis of left knee noneactive Osteoarthritis of left knee noneactive Osteoarthritis of left knee noneactive [facility] Work Phone: Hospital Discharge instructions Note Date & Type Note Facility Hospital Discharge instructions Additional Instructions Your laboratory work was grossly unremarkable today. Urinalysis did not show signs of infection. Continue your Ativan as previously directed. [facility] Work Phone: Reason for referral (narrative) Note Date & Type Note Facility Reason for referral (narrative) No reason for referral information available [facility] Work Phone: Family History No Family [...] for Treatment How to access health informa [employer] online Indication:Coronary artery disease Start:13-Jul-2014 Instruction Type:Patient Education How to access health informa tion online - Detail Indication:Coronary artery disease Start:13-Jul-2014 Instruction Type:Patient Education Patient Instructions Indication:Coronary artery disease Start:13-Jul-2014 Instruction Type:Provider Instructions for Treatment Patient Instructions Indication:SYMPTOMS INVOLVING URINARY SYSTEM; DYSURIA Start:17-Apr-2014 Instruction Type:Provider Instructions for Treatment How to access health informa [employer] online Indication:Coronary artery disease Start:06-Apr-2014 Instruction Type:Patient [...] Details How to access health informa tion [employer] Indication:Nonsmoker Start:15-Mar-2019 Instruction Type:Patient Education How to [...] Type:Provider Instructions for Treatment How to access Viral[employer]a Kohort online Indication:Hyperlipidemia Start:19-Apr-2015 Instruction Type:Patient Education How to access health informa tion online - Detail Indication:Hyperlipidemia Start:19-Apr-2015 Instruction Type:Patient Education Patient Instructions Indication:Hyperlipidemia Start:19-Apr-2015 Instruction Type:Provider Instructions for Treatment cardiovascular counseling Indication:Coronary artery disease Start:12-Oct-2014 Instruction Type:Provider Instructions for Treatment Patient Instructions Indication:Headache Start:12-Oct-2014 Instruction Type:Provider Instructions for Treatment Patient Instructions Indication:Headache Start:31-Aug-2014 Instruction Type:Provider Instructions for Treatment How to access [employer] [facility] online Indication:Coronary artery disease Start:13-Jul-2014 Instruction Type:Patient Education How to access health informa tion online - Detail Indication:Coronary artery disease Start:13-Jul-2014 Instruction Type:Patient Education Patient Instructions Indication:Coronary artery disease Start:13-Jul-2014 Instruction Type:Provider Instructions for Treatment Patient Instructions Indication:SYMPTOMS INVOLVING URINARY SYSTEM; DYSURIA Start:17-Apr-2014 Instruction Type:Provider Instructions for Treatment How to access health [employer] [facility] online Indication:Coronary artery disease Start:06-Apr-2014 Instruction Type:Patient Education How to access health informa [employer] online - Detail Indication:Coronary artery disease Start:06-Apr-2014 [...] Instructions for Treatment How to access health [employer] online Indication:Hyperlipidemia Start:19-Apr-2015 Instruction Type:Patient Education How to access health informa tion online - Detail Indication:Hyperlipidemia Start:19-Apr-2015 Instruction Type:Patient Education Patient Instructions Indication:Hyperlipidemia Start:19-Apr-2015 Instruction Type:Provider Instructions for Treatment cardiovascular counseling Indication:Coronary artery disease Start:12-Oct-2014 Instruction Type:Provider Instructions for Treatment Patient Instructions Indication:Headache Start:12-Oct-2014 Instruction Type:Provider Instructions for Treatment Patient Instructions Indication:Headache Start:31-Aug-2014 Instruction Type:Provider Instructions for Treatment How to access health informa [employer] online Indication:Coronary artery disease Start:13-Jul-2014 Instruction Type:Patient Education How to access health informa tion online - Detail Indication:Coronary artery disease Start:13-Jul-2014 Instruction Type:Patient Education Patient Instructions Indication:Coronary artery disease Start:13-Jul-2014 Instruction Type:Provider Instructions for Treatment Patient Instructions Indication:SYMPTOMS INVOLVING URINARY SYSTEM; DYSURIA Start:17-Apr-2014 Instruction Type:Provider Instructions for Treatment How to access health [employer] online Indication:Coronary artery disease Start:06-Apr-2014 Instruction Type:Patient [...] Start:06-Apr-2014 Instruction Type:Patient Education How to access [employer] online - Detail Indication:Coronary artery disease Start:06-Apr-2014 [...] Yes May 27, 2019 6:37pm Power of Track Helper Yes May 6:37pm Advance Directive Response Recorded Date/ Time Advance Directives Yes May 2:39pm Living Will Yes June 04, 2022 2:39pm Power of Track Helper Yes May 2:39pm Advance Directive Response Recorded Date/ Time Advance Directives Yes July 9:15am Living Will Yes August 01 9:15am Power of Track Helper Yes August 01, 2022 9:15am Advance Directive Response Recorded Date/ Time Advance Directives Yes July 10:15am Living Will Yes August 01, 022 10:15am Power of Track Helper Yes August 01, 2022 10:15am Advance Directive Response Recorded Date/ Time Advance Directives Yes July 09, 2023 8:23am Living Will Yes July 09 8:23am Power of Track Helper Yes July 09, 2023 8:23am Advance Directive Response Recorded Date/ Time Advance Directives Yes July 09, 2023 9:23am Living Will Yes July 09 9:23am Power of Track Helper Yes July 09, 2023 9:23am Advance Directive Response Recorded Date/ Time Advance Directives Yes July 09, 2023 9:23am Advance Directive Response Recorded Date/ Time Advance Directives Yes March 02 6:29pm Chief Complaint and Reason for Visit Chief Complaint Right hip xray [facility] MONTHLY EXAM Chief Complaint [facility] MONTHLY EXAM Chief Complaint [facility] NEW SYMPTOMS/CONCERN LABWORK MONTHLY EXAM Chief Complaint MONTHLY EXAM MONTH EXAM [facility] LEFT KNEE Rm 5 xray Reason for Visit Pes anserinus bursit is of left knee Osteoarthritis of left knee Chief Complaint [facility] K LEFT KNEE Rm 5 xray NEW CONCERN/PROBLEM LEFT KNEE room 1 MONTHLY EXAM [facility] MONTHLY Reason for Visit Pes anserinus bursit is of left knee Osteoarthritis of left knee Pes anserinus bursitis of left knee Osteoarthritis of left knee Chief Complaint NEW CONCERN/PROBLEM LEFT KNEE room 1 MONTHLY EXAM [facility] MONTHLY MONTHLY EXAM NEW PROBLEM [facility] Reason for Visit Pes anserinus bursit is of left knee Osteoarthritis of left knee Chief Complaint [facility] MONTHLY EXAM [facility] MONTHLY EXAM NEW CONCERN left knee Reason for Visit Pes anserinus bursit is of left knee Osteoarthritis of left knee Chief Complaint LEFT KNEE RM 5 LABWORK LEFT KNEE LEFT KNEE LEFT KNEE MONTHLY VISIT MONTHLY EXAM [facility] Reason for Visit Osteoarthritis of le ft knee Osteoarthritis of left knee Osteoarthritis of left knee Osteoarthritis of left knee Chief Complaint [facility] K MONTHLY EXAM - MD MONTHLY EXAM [facility] Chief Complaint MONTHLY EXAM MONTHLY EXAM MD [facility] MONTHLY EXAM MONTHLY EXAM MD Chief Complaint Admit Date LABWORK August 16, 2024 5 :00am [facility] September 16, 2024 5:00am MONTHLY EXAM September 20, 2024 7: 33pm LABWORK October 14, 2024 1 :00am [facility] October 17, 2024 5:00am MONTHLY EXAM October 27, 2024 11:58am LABWORK November 14, 2024 5:00 am Chief Complaint Admit Date [facility] September 16, 2024 5:00am MONTHLY EXAM September 20, 2024 7: 33pm LABWORK October 14, 2024 1 :00am [facility] October 17, 2024 5:00am MONTHLY EXAM October 27, 2024 11:58am LABWORK November 14, 2024 5:00 am MONTHLY EXAM November 15, 2024 5:36 pm LABWORK December 14, 2024 5:00 am Chief Complaint Admit Date LABWORK October 14, 2024 1 :00am [facility] October 17, 2024 5:00am MONTHLY EXAM October 27, 2024 11:58am LABWORK November 14, 2024 5:00 am MONTHLY EXAM November 15, 2024 5:36 pm LABWORK December 14, 2024 5:00 am LABWORK January 14, 2025 8:25am Chief Complaint Admit Date LABWORK October 14, 2024 1 :00am [facility] October 17, 2024 5:00am MONTHLY EXAM October 27, 2024 11:58am LABWORK November 14, 2024 5:00 am MONTHLY EXAM November 15, 2024 5:36 pm LABWORK December 14, 2024 5:00 am [facility] January 12, 2025 5:00 am LABWORK January 14, 2025 8:25am LABWORK January 18, 2025 5:00am Chief Complaint Admit Date LABWORK November 14, 2024 5:00 am MONTHLY EXAM November 15, 2024 5:36 pm LABWORK December 14, 2024 5:00 am Monthly Exam December 16, 2024 5:46 pm [facility] January 12, 2025 5:00 am LABWORK January 14, 2025 8:25am LABWORK January 18, 2025 5:00am [facility] January 23, 2025 5:0 0am Chief Complaint Admit Date LABWORK December 14, 2024 5:00 am Monthly Exam December 16, 2024 5:46 pm [facility] January 12, 2025 5:00 am LABWORK January 14, 2025 8:25am LABWORK January 18, 2025 5:00am [facility] January 23, 2025 5:0 0am MONTHLY EXAM January 31, 2025 4:00p m [facility] February 13, 2025 5:0 0am LABWORK February 27, 2025 5:00 am Chief Complaint Admit Date LABWORK December 14, 2024 5:00 am Monthly Exam December 16, 2024 5:46 pm [facility] January 12, 2025 5:00 am LABWORK January 14, 2025 8:25am LABWORK January 18, 2025 5:00am [facility] January 23, 2025 5:0 0am MONTHLY EXAM January 31, 2025 4:00p m [facility] February 13, 2025 5:0 0am MONTHLY EXAM February 23, 2025 9:45 am LABWORK February 27, 2025 5:00 am [facility] March 06, 2025 3: 47pm [facility] March 14, 2025 5:0 0am Chief Complaint Admit Date LABWORK December 14, 2024 5:00 am Monthly Exam December 16, 2024 5:46 pm [facility] January 12, 2025 5:00 am LABWORK January 14, 2025 8:25am LABWORK January 18, 2025 5:00am [facility] January 23, 2025 5:0 0am MONTHLY EXAM January 31, 2025 4:00p m [facility] February 13, 2025 5:0 0am MONTHLY EXAM February 23, 2025 9:45 am LABWORK February 27, 2025 5:00 am NEW CONCERN March 06, 2025 3:00 pm [facility] March 06, 2025 3: 47pm [facility] March 14, 2025 5:0 0am Chief Complaint Admit Date [facility] January 12, 2025 5:00 am LABWORK January 14, 2025 8:25am LABWORK January 18, 2025 5:00am [facility] January 23, 2025 5:0 0am MONTHLY EXAM January 31, 2025 4:00p m [facility] February 13, 2025 5:0 0am MONTHLY EXAM February 23, 2025 9:45 am LABWORK February 27, 2025 5:00 am NEW CONCERN March 06, 2025 3:00 pm [facility] March 06, 2025 3: 47pm [facility] March 14, 2025 5:0 0am New Concern March 20, 2025 4:08p m LABWORK April 14, 2025 5:0 0am Chief Complaint Admit Date [facility] January 12, 2025 5:00 am LABWORK January 14, 2025 8:25am LABWORK January 18, 2025 5:00am [facility] January 23, 2025 5:0 0am MONTHLY EXAM January 31, 2025 4:00p m [facility] February 13, 2025 5:0 0am MONTHLY EXAM February 23, 2025 9:45 am LABWORK February 27, 2025 5:00 am NEW CONCERN March 06, 2025 3:00 pm [facility] March 06, 2025 3: 47pm [facility] March 14, 2025 5:0 0am Monthly Exam March 14, 2025 10:00 pm New Concern March 20, 2025 4:08p m LABWORK April 14, 2025 5:0 0am Chief Complaint Admit Date LABWORK January 18, 2025 5:00am [facility] January 23, 2025 5:0 0am MONTHLY EXAM January 31, 2025 4:00p m [facility] February 13, 2025 5:0 0am MONTHLY EXAM February 23, 2025 9:45 am LABWORK February 27, 2025 5:00 am NEW CONCERN March 06, 2025 3:00 pm [facility] March 06, 2025 3: 47pm [facility] March 14, 2025 5:0 0am Monthly Exam March 14, 2025 10:00 pm New Concern March 20, 2025 4:08p m LABWORK April 14, 2025 5:0 0am MONTHLY EXAM April 20, 2025 11: 08am Chief Complaint Admit Date [facility] March 14, 2025 5:0 0am Monthly Exam March 14, 2025 10:00 pm New Concern March 20, 2025 4:08p m LABWORK April 14, 2025 5:0 0am MONTHLY EXAM April 20, 2025 11: 08am [facility] May 16 5:00am [facility] May 22 5:00am [facility] June 19, 2025 4:42am Confused June 28, 2025 7 :22pm Additional Source Comments INFORMATION SOURCE (unrecogn ized section and content) DATE CREATED AUTHOR 10/03/2019 [facility] ([place]) DATE CREATED AUTHOR AUTHOR'S ORGANIZ ATION 07/27/2025 [facility] [place] Goals (unrecognized section and content) Goals may [...] MD Primary Care Provider Active Zeina Balbuena CHECK TOTALER, CHECK TOTALER-C Attending Provider Active Team Status: Inactive Member [...] MD Primary Care Provider Active Carmen Shaikh CHECK TOTALER-C Attending Provider Active Team Status: Active Member [...] 2024 End: December 16, 2024 Zeina Balbuena CHECK TOTALER, CHECK TOTALER-C Attending Provider Active Start: December 16, 2024 [...] 2024 End: December 16, 2024 Zeina Balbuena CHECK TOTALER, CHECK TOTALER-C Attending Provider Active Start: December 16, 2024 [...] 2025 End: March 06, 2025 Zeina Balbuena CHECK TOTALER, CHECK TOTALER-C Attending Provider Active Start: March 06, 2025 [...] End: March 06, 2025 Zeina Balbuena NP CHECK TOTALER-C Attending Provider Active Start: March 06, 2025 End: March 06, 2025 Team Status: Inactive Member Role/Relationship Status Dates Dr. Yesika Faust MD Primary Care Provider Active Start: March 20, 2025 End: March 20, 2025 Zeina Balbuena NP CHECK TOTALER-C Attending Provider Active Start: March 20, 2025 [...] End: March 20, 2025 Zeina Balbuena NP CHECK TOTALER-C Attending Provider Active Start: March 20, 2025 [...] 2025 End: March 06, 2025 Zeina Balbuena CHECK TOTALER CHECK TOTALER-C Attending Provider Active Start: March 06, 2025 [...] 2025 End: March 20, 2025 Zeina Balbuena CHECK TOTALER, CHECK TOTALER-C Attending Provider Active Start: March 20, 2025 [...] 2025 End: March 20, 2025 Zeina Balbuena CHECK TOTALER, CHECK TOTALER-C Attending physician Active Start: March 20, 2025 [...] Activ e Start: May 22, 2025 Yesika IVCENTE MD Attending physician Active Start: May 22, [...] BASED ON THE PRIMARY CLINICAL RECORDS. [facility] [email or web address] [facility]. provides no warranty or guarantee of the accuracy or completeness of information in this document.
--- NOTE | 2025-08-05 22:37 | EDS_ITS ---
HPI HPI - Fall History of Present Illness Chief Complaint: Fall Narrative Narrative: Patient is a 85-year-old female presenting to the emergency department for a fall. Patient has a past medical history of dementia and depression. Patient has a prior history of frequent falls. She was just seen here earlier today after a fall and was discharged back to her facility. She was found to have a urinary tract infection as well as possible occult left hip fracture however she is not ambulatory at baseline and was therefore discharged back. Patient is a poor historian due to her history of dementia. History was taken from EMS. It is unknown if the fall was witnessed by anyone at the facility. Patient declines any pain at time of evaluation but difficult to discern if she would complain of pain at baseline. She is not on any oral anticoagulation. [facility] Medical History Dyspnea Intermittent claudication Shortness of breath Family history of coronary artery disease Family history of hyperlipidemia Family history of hypertension Home Medications ?Medication ?Instructions ?Recorded ?Last Taken ?Type aspirin 81 mg tablet,delayed 81 mg PO DAILY@0800 07/2505/25/15 History release diclofenac sodium 1 % topical gel 4 g topical BID knee pain 09/30/21 Unknown History acetaminophen 500 mg tablet 1,000 mg PO TID 02/07/24 U nknown History donepezil 10 mg tablet 10 mg PO QHS 02/07/24 Unknow n History duloxetine 60 mg capsule,delayed 60 mg PO DAILY Unknown History release sennosides 8.6 mg-docusate sodium 2 tab-cap PO QHS Unknown History 50 mg tablet (Senexon-S) brexpiprazole 1 mg tablet (Rexulti) 2 mg PO DAILY 06/14 02/05 Unknown History divalproex 125 mg capsule,delayed 250 mg PO QHS Unknown History release sprinkle mirtazapine 7.5 mg tablet 7.5 mg PO QHS 06/28/25 Unkno wn History oxycodone 5 mg tablet 2.5 mg (1/2 x 5 mg) PO Q6H P RN 07/31/25 Unknown Rx pain 30 days #30 tabs pregabalin 25 mg capsule 25 mg PO QDAY neuropathic pa in 30 07/31/25 Unknown Rx days #30 caps divalproex 125 mg capsule,delayed 125 mg PO DAILY 07/16 11/08 Unknown History release sprinkle (Depakote Sprinkles) lorazepam 0.5 mg tablet 0.5 mg PO TID dementia with 08/05/25 Unknown History behaviors melatonin 5 mg capsule 10 mg PO QHS 08/05/25 Unknow n History Allergy/AdvReac Type Severity Reaction Status Date / Time sulfamethoxazole Allergy Unknown Other Verified 08/05/25 11:35 acetaminophen (From Vicodin) Allergy Other Verified 08/05/25 11:35 hydrocodone (From Vicodin) Allergy Other Verified 08/05/25 11:35 Family History Other Family history of coronary artery disease Family history of hyperlipidemia Family history of hypertension Social History housing: group home Smoking Status: Never smoker ROS ROS ED ROS Narrative Unable to be obtained due to dementia Review of Systems ROS Unobtainable: due to mental condition EXAM Physical Exam Narrative Exam Narrative: Vital signs: Reviewed General: Alert and oriented x 1. No acute distress HEENT: Head is normocephalic and atraumatic. No evidence of trauma to the head or face. Midface is stable and nontender to palpation. Pupils equal round and reactive. Nares are patent. No septal hematoma. Oropharynx and throat exams normal. No oropharyngeal trauma. Neck: Supple without lymphadenopathy nontender. No midline cervical spinal tenderness to palpation. No step-offs or deformities. Cardiovascular: Regular rate and rhythm, no murmurs. No rubs or gallops. Normal S1 and S2. DP and PT pulses 2+ and symmetric bilaterally. Radial pulses 2+ and symmetric bilaterally. Respiratory: Clear to auscultation bilaterally. No wheezes, rales, rhonchi Chest: Chest wall is atraumatic and nontender to palpation. No crepitus, erythema or ecchymosis. Abdominal: Soft and nontender. Normal bowel sounds. No guarding or rebound. Nonsurgical abdomen Extremities: Hips are stable and nontender to palpation. No midline thoracic or lumbar spinal tenderness to palpation. No step-offs or deformities. No obvious deformities to bilateral lower extremities. Patient will fully range right hip, but will only partially range left hip. Skin: No rash or redness. Neurological: Does not participate in neurologic exam. Moving all extremities. Alert and oriented to self. The rest of the physical exam is unremarkable Const Vital Signs: 08/05/25 21:25 08/05/25 21:27 08/05/25 21:31 Temperature 98 F 98 F Temperature Source Oral Temporal Pulse Rate 92 93 Respiratory Rate 18 18 Respiratory Effort Normal Non-Labored Respiratory Depth Normal Respiratory Pattern Normal Blood Pressure 174/96 H 174/96 H Blood Pressure Mean 122 122 Pulse Ox 94 94 Oxygen Delivery Method Room Air Room Air Room Air 08/05/25 22:23 08/05/25 23:00 Temperature Temperature Source Pulse Rate 93 83 Respiratory Rate 17 17 Respiratory Effort Respiratory Depth Respiratory Pattern Blood Pressure 164/139 H 153/72 H Blood Pressure Mean 147 99 Pulse Ox 97 97 Oxygen Delivery Method Room Air Room Air MDM MDM MDM Narrative Medical decision making narrative: Patient is a 85-year-old female presenting to the emergency department for an unwitnessed fall. This is her third fall in 2 days. Patient was seen and examined. Vitals are stable. Patient resting bed comfortably no acute distress. Denies any pain at time of evaluation. Patient did have an unwitnessed fall however she just had labs done this afternoon at 1 PM. I do not think we need to repeat these, they were done less than 12 hours ago and there were no significant abnormalities. Reviewing her CBC and BMP there are no significant abnormalities. Urinalysis does show evidence of infection and was prescribed antibiotics for this at her [facility] facility. EKG showed normal sinus rhythm with no ischemic changes done earlier today. Will repeat a CT of the brain and cervical spine here as well as a obtain a chest x-ray. Chest x-ray reviewed by myself and shows no opacities, pneumothorax or wide mediastinum. No rib fracture seen. Radiology read in agreement. CT brain with no acute intracranial abnormality. CT cervical spine with no fractures or dislocations, stable findings per radiology. Reviewed hip x-ray and CT done earlier today. It was determined that patient may have an occult fracture however she is nonambulatory at baseline. There is no obvious deformity of the hip and no shortening of the hip. She is able to range it slightly with flexion and extension. For this reason I do not think she has any evidence of dislocation and I do not see any need to repeat an x-ray of the pelvis given it was not clinically useful earlier today. Given negative imaging findings patient is stable for outpatient follow-up. Patient discharged from the Emergency Department. I do not feel that the patient's evaluation reveals any acute reason for admission at this time. She already has abx for her UTI and was informed to follow up with ortho in the next 2 weeks. Encouraged follow-up with primary care doctor soon as possible. Clinical impression: Frequent falls History & Record Review Discussion w/independent historian: EMS personnel Radiography Diagnostic Testing: Clinical Impression(s) from Imaging Studies Brain CT 08/05/25 22:04 IMPRESSION: No acute intracranial MR abnormality. Acute right sphenoid sinusitis, worsened since the previous study. Reading Location: [facility] Cervical Spine CT 08/05/25 22:04 IMPRESSION: Stable study findings. No vertebral fractures, structural collapse or acute dislocation. Reading Location: [place] [id number] Chest X-Ray 08/05/25 22:50 IMPRESSION: As above. Reading Location: [facility] Discharge Plan Triage Chief Complaint: Fall ED Provider: Berkley Fowler Dx/Rx/DC Orders Clinical Impression: Dementia, Fall Instructions: ED Fall with Uncertain Cause Prescriptions: No Action diclofenac sodium 1 % gel 4 g topical BID Rx Instructions: apply to single elbow, wrist or hand; for hand includes palm/fingers/back of hand aspirin 81 MG tablet 81 mg PO DAILY@0800 Patient Comments: HEART/BLOOD PRESSURE divalproex 125 mg capsule, delayed rel sprinkle 250 mg PO QHS mirtazapine 7.5 mg tablet 7.5 mg PO QHS Rexulti 1 mg tablet 2 mg PO DAILY sennosides-docusate sodium [Senexon-S] 8.6-50 mg tablet 2 tab-cap PO QHS acetaminophen 500 mg tablet 1,000 mg PO TID donepezil 10 mg tablet 10 mg PO QHS duloxetine 60 mg capsule,delayed release(DR/EC) 60 mg PO DAILY melatonin 5 mg capsule 10 mg PO QHS lorazepam 0.5 mg tablet 0.5 mg PO TID divalproex [Depakote Sprinkles] 125 mg capsule, delayed rel sprinkle 125 mg PO DAILY oxycodone 5 mg tablet 2.5 mg PO Q6H PRN (Reason: pain) 30 Days Qty: 30 0RF pregabalin 25 mg capsule 25 mg PO QDAY 30 Days Qty: 30 0RF Rx Instructions: Give in evening. Primary Care Provider: Yesika Faust Referrals: Yesika Faust MD [Primary Care Provider, Internal Medicine] - As soon as possible Activity Restrictions/Additional Instructions: As previously found on ED visit earlier today, Meka has a UTI that antibiotics were already sent for and needs to follow-up with orthopedics for her left hip. Please refer to the discharge paperwork from earlier for these instructions. Follow-up with primary care doctor soon as possible. Print Language: Italian Disposition Disposition: Assisted Living Discharge Location: [facility]
--- NOTE | 2025-08-05 22:50 | RAD_ITS ---
PROCEDURE: CHEST PA AND LATERAL 08/05/2025 REASON FOR EXAM: FALL TECHNIQUE: Procedure Code: RADCXR Modality: DX Procedure: CHEST PA AND LATERAL COMPARISON: Earlier on the same day. FINDINGS: No significant interval change. The lungs are clear. 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 No acute osseous abnormality. Diffuse osteopenia. Evidence of a cholecystectomy, unchanged. RAD/Chest PA and Lateral IMPRESSION: As above. Reading Location: [id number]
[2025-08-05 23:00] VITALS: BP 153/72; PULSE 83; RESP 17; O2SAT 97
--- NOTE | 2025-08-06 00:17 | ED.RN ---
Spoke with Araceli from [facility], report given, evin ETA [phone]
[2025-08-06 01:28] VITALS: BP 174/73; PULSE 86; RESP 16; TEMP 37.1; O2SAT 97
== END 2025-08-06 01:44 | disposition home or self-care (01) ==
PROVIDERS: Emergency Provider Student in an Organized Health Care Education/Training Program; PCP Internal Medicine; Visit Provider Student in an Organized Health Care Education/Training Program
DX: S70.02XA Contusion of left hip, initial encounter (principal); F03.90 Unspecified dementia, unspecified severity, without behavioral disturbance, psychotic disturbance, mood disturbance, and anxiety; W19.XXXA Unspecified fall, initial encounter; N39.0 Urinary tract infection, site not specified
CPT/HCPCS: 70450; 71046; 72125; 99285; A4216